=== PATIENT | male | born 1970 | race Caucasian/White ===

== ENCOUNTER 2019-10-01 09:00 | Outpatient (CLI) | payer MEDICARE, MEDICAID, SELFPAY ==
[2019-10-01 10:10] LABS: Blood Urea Nitrogen 117 mg/dL (9-20); Calcium 8.9 mg/dL (8.4-10.2); Carbon Dioxide 26 mmol/L (22-30); Chloride 93 mmol/L (98-107); Estimated Glomerular Filt Rate 9; Glucose 270 mg/dL (75-110); Potassium 3.8 mmol/L (3.4-5.0); Sodium 137 mmol/L (137-145)
== END 2019-10-01 09:01 | disposition home or self-care (01) ==
PROVIDERS: PCP Family Medicine; Visit Provider Family Medicine
DX: N18.4 Chronic kidney disease, stage 4 (severe) (principal)
CPT/HCPCS: 36415; 80048

== ENCOUNTER 2019-10-16 14:17 | Outpatient (CLI) | payer MEDICARE, MEDICAID, SELFPAY ==
[2019-10-16 15:51] LABS: Hepatitis B Surface Antigen Negative (Negative)
[2019-10-16 15:56] LABS: Hepatitis B Core IgM Result Negative (Negative)
[2019-10-16 16:17] LABS: Hepatitis B Surface Anti Res Positive
== END 2019-10-16 14:18 | disposition home or self-care (01) ==
PROVIDERS: PCP Family Medicine; Visit Provider Internal Medicine Nephrology
DX: N18.6 End stage renal disease (principal)
CPT/HCPCS: 36415; 86705; 86706; 87340

== ENCOUNTER 2019-10-30 08:08 | Outpatient (CLI) | payer MEDICARE, MEDICAID, SELFPAY ==
[2019-10-30 08:41] LABS: Blood Urea Nitrogen 65 mg/dL (9-20); Calcium 8.7 mg/dL (8.4-10.2); Carbon Dioxide 28 mmol/L (22-30); Chloride 101 mmol/L (98-107); Estimated Glomerular Filt Rate 14; Glucose 122 mg/dL (75-110); Potassium 3.8 mmol/L (3.4-5.0); Sodium 137 mmol/L (137-145)
[2019-11-02 12:15] LABS: C-Peptide <0.10 ng/mL (0.80-3.85)
[2019-11-05 01:37] LABS: Islet Cell Antibody Screen NEGATIVE (NEGATIVE)
[2019-11-06 06:49] LABS: Glutamic acid decarboxylase AA <5 IU/mL (<5)
== END 2019-10-30 08:09 | disposition home or self-care (01) ==
PROVIDERS: PCP Family Medicine; Visit Provider Physician Assistant
DX: E10.65 Type 1 diabetes mellitus with hyperglycemia (principal)
CPT/HCPCS: 36415; 80048; 84681; 86341

== ENCOUNTER 2019-12-26 09:49 | Inpatient (IN) | payer MEDICARE, MEDICAID, SELFPAY ==
[2019-12-26] VITALS (15 sets, daily range): BP systolic 134–208; BP diastolic 47–69; PULSE 53–70; RESP 14–21; TEMP 36.1–37; O2SAT 91–98; BMI 36.8
--- NOTE | ~2019-12-26 | XR_ITS ---
EXAMINATION: XR hip RT 2V w AP pelvis DATE: 12/27/2019 08:28 INDICATION: Right hip and groin pain TECHNIQUE: Anteroposterior view of the pelvis and anteroposterior and frog-leg lateral views of the r ight hip were obtained. COMPARISON: CT dated 06/15/2017 FINDINGS: Old healed fracture deformity at the right femoral diaphysis. No acute fracture. Normal alignment at the hips. Bilateral decreased femoral head/neck offset. Mild bilateral hip osteoarthritis. Heterotopi c ossification along the right gluteus medius and along the right iliopsoas tendon likely related to old trauma. IMPRESSION: 1. Mild bilateral hip osteoarthritis. 2. Old healed right femoral diaphyseal fracture and heterotopic ossification in some of the soft tiss ues about the right hip, likely sequela of old trauma. No acute osseous abnormality. Reviewed, dictated and finalized at location A. IMPRESSION: 1. Mild bilateral hip osteoarthritis. 2. Old healed right femoral diaphyseal fracture and heterotopic ossification in some of the soft tissues about the right hip, likely sequela of old trauma. No acute osseous abnormality.
--- NOTE | ~2019-12-26 | XR_ITS ---
EXAMINATION: XR chest 2V 12/26/2019 10:23 INDICATION: Chest pain PROCEDURE: 2 view chest COMPARISON: Comparison to multiple prior studies sequentially, with oldest reviewed study dated 11/09. FINDINGS: The lungs are clear. The cardiomediastinal silhouette is within normal limits. There are no pleural effusions. There is no pneumothorax suspected. Subsegmental atelectasis left lung base. IMPRESSION: 1: NO ACUTE CARDIOPULMONARY DISEASE. Reviewed, dictated and finalized at location A.
--- NOTE | 2019-12-26 09:56 | ECG_ITS ---
Measurements Intervals [place] Rate: 65 P: 77 VA: 204 QRS: -47 QRSD: 127 T: 153 QT: 495 QTc: 517 Interpretive Statements SINUS RHYTHM BORDERLINE AV CONDUCTION DELAY LEFT ANTERIOR FASCICULAR BLOCK LEFT VENTRICULAR HYPERTROPHY AND ST-T CHANGE BORDERLINE ST-T WAVE ABNORMALITY- LATERAL LEADS BASELINE WANDER- I, II, AVR, AVL, AVF, V1, V4-V6 ABNORMAL ECG Electronically Signed On 12-26-2019 10:16:24 CDT by Doc Dorantes D.O.
--- NOTE | 2019-12-26 10:00 | ED.CHESTPAIN ---
HPI - Chest Pain General Chief Complaint: Chest Pain Stated Complaint: CP, High Blood Sugar History of Present Illness HPI narrative: 49 yo male w/ h/o DM, ESRD on peritoneal dialysis, HTN BIBEMS for CP. He has had chest pain for the past 2 days. Sharp pain. Constant. Radiating to the back. No exacerbating or alleviating factors. Associated with nausea and 2 episodes of vomiting. Additionally his blood sugar was red as high . He says that it has been reading high since starting peritoneal dialysi, but they have not made any changes to his insulin dosage yet. No fever, weakness, SOB. Related Data Home Medications Medication Instructions Recorded Confirmed aspirin 81 mg PO DAILY 06/04/19 12/26/19 calcitriol 0.25 mcg PO QAM 06/04/19 12/26/19 clonidine HCl 0.1 mg PO QAM AND QPM 06/04/19 12/26/19 clopidogrel 75 mg PO DAILY 06/04/19 12/26/19 ergocalciferol (vitamin D2) 50,000 unit PO WEEKLY 06/04/19 12/26/19 [Vitamin D2] hydralazine 100 mg PO Q8H 06/04/19 12/26/19 nitroglycerin 0.4 mg SUBLINGUAL Q5-15M PRN 06/04/19 12/26/19 terazosin 2 mg PO HS 06/04/19 12/26/19 ezetimibe [Zetia] 10 mg PO DAILY 09/09/19 12/26/19 isosorbide mononitrate 30 mg PO DAILY 09/09/19 12/26/19 metoprolol tartrate 100 mg PO Q12H 09/09/19 12/26/19 ranolazine 500 mg tablet,extended 500 mg PO Q12H 09/24/19 12/26/19 release,12 hr glucagon HCl 1 mg solution for 1 mg SUB-Q Q20M PRN each 09/29/19 12/26/19 injection subcutaneous insulin pump #1 each 09/29/19 10/18/19 atorvastatin 80 mg PO HS 10/18/19 12/26/19 calcium acetate 667 mg PO QID 12/26/19 12/26/19 carvedilol 25 mg PO QAM AND QPM 12/26/19 12/26/19 cetirizine [All Day Allergy 10 mg PO DAILY 12/26/19 12/26/19 (cetirizine)] colchicine 0.3 mg PO QMWF 12/26/19 12/26/19 famotidine 40 mg PO HS 12/26/19 12/26/19 febuxostat 40 mg PO DAILY 12/26/19 12/26/19 hydrocodone-acetaminophen 1 tablet PO Q6H PRN 12/26/19 12/26/19 Allergies Allergy/AdvReac Type Severity Reaction Status Date / Time iohexol Allergy Severe Difficulty Verified 12/26/19 09:49 [From CONTRAST - CT, XRAY] Breathing ticagrelor Allergy Intermediate Rash Verified 12/26/19 09:49 Review of Systems Review of Systems: All systems reviewed & are unremarkable except as noted in HPI and below Constitutional: Constitutional: Denies chills and Denies fever(s) Cardiovascular: Cardiovascular: Reports chest pain Respiratory: Respiratory: Denies dyspnea Gastrointestinal: Gastrointestinal: Denies abdominal pain, Reports nausea and Reports vomiting PMFSH Past Medical History Medical History Anemia Anxiety Arthritis Bronchitis CHF (congestive heart failure) Diabetes Fracture rt leg History of CHF (congestive heart failure) History of chronic kidney disease Stage III History of coronary artery disease History of DVT (deep vein thrombosis) Behind right knee chronic History of gastroesophageal reflux (GERD) History of gout History of hypertension History of sleep apnea Has sleep apnea Hyperlipidemia Hypertension, essential Myocardial infarction Pneumonia Secondary hyperparathyroidism of renal origin Type 1 diabetes mellitus with stage 5 chronic kidney disease Surgical History Surgical History H/O arthroscopic knee surgery lt knee History of appendectomy History of cardiac catheterization 3 November 2018 [facility] History of carpal tunnel surgery Bilateral Family History Family History (Updated 12/26/19 @ 16:43 by Fab Snyder MD) Father , in his late 60s Family history of heart disease in male family member before age 55 Family history of Alzheimer's disease Family history of congestive heart failure Hypertension Mother Hypertension Family history of Alzheimer's disease Other Family history of diabetes mellitus in first degree relative Social History Social
[2019-12-26 10:04] LABS: Glucose Point of Care > 500 (65-105)
[2019-12-26 10:05] LABS: Glucose Point of Care > 500 (65-105)
[2019-12-26 10:25] LABS: Basophils Percent Auto 0.6 % (0.2-1.2); Eosinophils Percent Auto 0.2 % (0-4.4); Hematocrit 37.6 % (42.0-52.0); Hemoglobin 12.2 g/dL (14.0-18.0); Immature Granulocyte Absolute 0.01 K/mm3 (0.00-0.031); Immature Granulocyte Percent A 0.2 % (0-0.5); Lymphocytes Absolute Auto 0.72 K/mm3 (0.9-3.2); Lymphocytes Percent Auto 14.8 % (18.3-44.2); Mean Corpuscular HGB Conc 32.4 g/dl (32-36); Mean Corpuscular Hemoglobin 29.5 pg (26-34); Mean Corpuscular Volume 90.8 fl (80-100); Mean Platelet Volume 10.4 fl (7.4-10.4); Monocytes Absolute Auto 0.4 K/mm3 (0.1-0.6); Monocytes Percent Auto 7.4 % (2.6-8.5); Neutrophils Absolute Auto 3.7 K/mm3 (1.3-6.7); Neutrophils Percent Auto 76.8 % (45.5-73.1); Platelet Count Result 176 k/mm3 (150-375); Red Blood Count 4.14 M/mm3 (4.6-6.20); White Blood Count 4.9 K/mm3 (4.5-10.0)
[2019-12-26] MEDS: INSULIN HUMAN REGULAR (*BKC) 100 UNITS/ML 10 UNITS IV PUSH (10:25)
[2019-12-26 10:31] LABS: Add Urine Microscopic? YES; Appearance Urine Clear (Clear); Bilirubin Urine Negative (Negative); Blood Urine Negative (Negative); Color Urine Straw (Yellow); Glucose Urine UA 3+ mg/dL (Negative); Ketones Urine Trace mg/dL (Negative); Leukocyte Esterase Ur Negative LEU/UL (Negative); Nitrate Urine Negative (Negative); Protein Urine 2+ mg/dL (Negative); RBC Urine 0-2 /hpf (0-2); Specific Grav Ur 1.016 (1.001-1.035); Urobilinogen Urine Negative mg/dL (<2.0); WBC Urine 0-3 /hpf
[2019-12-26 10:35] LABS: Partial Thromboplastin Time 25.4 SECONDS (22.3-36.8); Prothrombin Time 12.9 Seconds (11.1-14.7)
[2019-12-26 10:45] LABS: Alanine Aminotransferase 76 U/L (4-50); Albumin Level 3.9 g/dL (3.5-5.1); Alkaline Phosphatase 162 U/L (38-126); Aspartate Amino Transferase 48 U/L (17-59); Bilirubin,Total 1.2 mg/dL (0.2-1.3); Blood Urea Nitrogen 78 mg/dL (9-20); Calcium 8.7 mg/dL (8.4-10.2); Carbon Dioxide 20 mmol/L (22-30); Chloride 82 mmol/L (98-107); Estimated CRCL calculation 18 ml/min; Estimated Glomerular Filt Rate 10; Glucose 1027 mg/dL (75-110); Magnesium 2.4 mg/dL (1.6-2.3); Phosphorus 4.9 mg/dL (2.5-4.5); Potassium 4.4 mmol/L (3.4-5.0); Sodium 122 mmol/L (137-145)
[2019-12-26 10:56] LABS: Troponin I 0.048 ng/mL (0.000-0.034)
[2019-12-26] MEDS: SODIUM CHLORIDE 0.9% IV 1,000 ML 999 ML IV CONT ×2 (11:00→12:10)
[2019-12-26] MEDS: INSULIN HUMAN REGULAR (*BKC) 100 UNITS in SODIUM CHLORIDE 0.9% IV 99 ML 19.3 UNITS IV CONT (11:41)
[2019-12-26 11:52] LABS: Beta-Hydroxybutyrate/Acetoacetate 4.13 mmol/L (0.02-0.27)
[2019-12-26 12:52] LABS: Glucose Point of Care > 500 (65-105)
[2019-12-26 12:52] LABS: Glucose Point of Care > 500 (65-105)
--- NOTE | 2019-12-26 13:06 | ADMGEN ---
This patient, Juvenal Daigle Jr., was admitted to Intensive Care Unit-10. Patient/family oriented to hospital policies and general routines including ID bracelet, bed and alarms, visiting hours, pain management, procedures, bathroom and other care routines, personal items, smoking policy, room service/diet, and visiting hours. Valuables list has been completed. Information on how to activate the Rapid Response Team has been discussed. Patient/Family are encouraged to report perceived risks to care and to ask questions if they do not understand what they are told or what they should do.
--- NOTE | 2019-12-26 13:13 | WPDCNINT ---
Assessment and Plan Assessment and plan (1) DKA (diabetic ketoacidosis): Qualifiers: Diabetes mellitus complication detail: without coma Diabetes mellitus type: type 1 Qualified Code(s): E10.10 - Type 1 diabetes mellitus with ketoacidosis without coma Code(s): E11.10 - Type 2 diabetes mellitus with ketoacidosis without coma Status: Acute Assessment and Plan: Pt presented with chest pain, Nausea and Vomiting, found to have a blood sugar of 1027, with an elevated anion gap. given 2 L IV fluid Bolus and started on Insulin infusion. - continue IV insulin per DKA protocol - check HbA1C - Will transition pt to long acting insulin and SSI with accuchecks once anion gap closes. (2) Chest pain: Qualifiers: Chest pain type: unspecified Qualified Code(s): R07.9 - Chest pain, unspecified Code(s): R07.9 - Chest pain, unspecified Status: Acute Assessment and Plan: Pt presented with chest pain, troponin minimally elevated - trend troponin and EKGs - COntinue ASA, beta blockers, Ranexa, Plavix, Imdur - ECHO 09/10/2019: Mild LVH, mild LV enlargement; overall LV systolic function is normal with ejection fraction about 55%; distal anterior and anterolateral wall and apex is hypokinetic. Mild left atrial enlargement. Trace MR. Mild aortic valve calcification with mild stenosis, calculated LARA 1.9 cm2. Trace TR, severe pulmonary hypertension, RVSP 70 mmHg (3) End-stage renal disease (ESRD): Code(s): N18.6 - End stage renal disease Status: Acute Assessment and Plan: Pt on peritoneal dialysis, sees Dr. Reyes ( Traffic Assistant) - Will consult - PD per nephrology - Hyponatremia - likely due to elevated sugars, Pseudohyponatremia. will continue to monitor (4) HTN (hypertension): Code(s): I10 - Essential (primary) hypertension Status: Acute Assessment and Plan: continue home meds (5) Type 1 diabetes mellitus with hyperglycemia, with long-term current use of insulin: Code(s): E10.65 - Type 1 diabetes mellitus with hyperglycemia Status: Acute Assessment and Plan: DM type 1, pt on insulin pump and has a [employer] sugar monitor system - check HbA1C - Nutritonist and ems educator will be consulted (6) DVT prophylaxis: Code(s): Z29.9 - Encounter for prophylactic measures, unspecified Status: Acute Assessment and Plan: continue heparin SQ (7) Anemia: Code(s): D64.9 - Anemia, unspecified Status: Acute Assessment and Plan: Likely related to anemia of chronic disease. HB stable - continue to monitor (8) Hyperlipidemia: Code(s): E78.5 - Hyperlipidemia, unspecified Status: Chronic Assessment and Plan: continue statin Additional Plan Discussed with pt and updated him with his condition and plan of care. I answered all his questions. D/w Dr. Snyder Code Status: Full Code Critical Care Time Spent: 44 minutes Due to a high probability of clinically significant, life threatening deterioration, the patient required my highest level of preparedness to intervene emergently and I personally spent this critical care time directly and personally managing the patient. This critical care time included obtaining a history; examining the patient; pulse oximetry; ordering and review of studies; arranging urgent treatment with development of a management plan; evaluation of patient's response to treatment; frequent reassessment; and discussions with other providers. It was exclusive of separately billable procedures and treating other patients and teaching time. Please see Assessment and Plan section and the rest of the note for further information on patient assessment and treatment Face Hardener Consult Note Consult date: 12/26/19 Time Seen: 13:12 Reason for consult: Chest pain, DKA HPI: Juvenal Daigle Jr. is a 49 year old male with PMH of DM type 1, ESRD on peritoneal dialy
--- NOTE | 2019-12-26 15:11 | ADMGEN ---
This patient, Juvenal Daigle Jr., was admitted to Intensive Care Unit-10 @ 1310. Patient oriented to hospital policies and general routines including ID bracelet, bed and alarms, visiting hours, pain management, procedures, bathroom and other care routines, personal items, smoking policy, room service/diet, and visiting hours. Valuables list has been completed. Information on how to activate the Rapid Response Team has been discussed. Patient encouraged to report perceived risks to care and to ask questions if he does not understand what he is told or what to do.
--- NOTE | 2019-12-26 15:14 | PC.NURSE ---
Admission assessment completed upon pt arrival to ICU- Computer system down at that time until 1514; Pt admitted to ICU from ER with insulin drip infusing at 19.3cc/hr- Blood Sugar >600; -
[2019-12-26 15:20] LABS: Glucose Point of Care > 500 (65-105)
[2019-12-26 15:20] LABS: Glucose Point of Care > 500 (65-105)
[2019-12-26 15:20] LABS: Glucose Point of Care > 500 (65-105)
[2019-12-26 16:25] LABS: Glucose Point of Care > 500 (65-105)
--- NOTE | 2019-12-26 16:27 | PM.IMHP ---
H&P: HPI History of Present Illness Chief complaint: DKA Narrative: Date of visit 12/25 1300. Juvenal Daigle Jr. is a 49 year old hypertensive white male with chronic renal failure on peritoneal dialysis and type 2 diabetes mellitus with known coronary disease. Patient states that the last 2 days he has awakened life skills specialist with sharp anterior chest pain nonradiating and no shortness of breath but did have emesis this a.m.. Related in the ER the pain radiated to back. Patient has had known history of atypical chest discomfort and had a cardiac catheterization ended July at [facility] revealing that stents were patent. In November of 2018 apparently had 3 stents placed a [facility]. He also relates that he has been on peritoneal dialysis since October of this year and sugars have been running much higher. He was to have his insulin pump adjusted for the increase in sugars but has never had it done with problems of COVID. He has had no fever no chills minimal cough if any. Has sheltered in for the most part other than trips to the grocery store. States that he did have significant elevated blood sugar probable DKA some 11 years ago Review of Systems Review of Systems: Narrative: Constitutional prior to present illness appetite good weight steady and as above no fever chills Eye no double vision [place] Mouth no pharyngitis laryngitis Pulmonary no shortness breath wheezing minimal dry cough at times CV as per present illness and states that since he started peritoneal dialysis edema has subsided continues to peritoneal dialysis dysuria GI no melena hematochezia diarrhea Muscle skeletal complains of pain intermittently in right hip with movement or walking and growing vein Integument no skin breakdown rashes Neuropsych no seizures no syncope PMFSH Past Medical History Medical History Anemia Anxiety Arthritis Bronchitis CHF (congestive heart failure) Diabetes Fracture rt leg History of CHF (congestive heart failure) History of chronic kidney disease Stage III History of coronary artery disease History of DVT (deep vein thrombosis) Behind right knee chronic History of gastroesophageal reflux (GERD) History of gout History of hypertension History of sleep apnea Has sleep apnea Hyperlipidemia Hypertension, essential Myocardial infarction Pneumonia Secondary hyperparathyroidism of renal origin Type 1 diabetes mellitus with stage 5 chronic kidney disease Surgical History Surgical History H/O arthroscopic knee surgery lt knee History of appendectomy History of cardiac catheterization November 2018 [facility] History of carpal tunnel surgery Bilateral Family History Family History Father , in his late 60s Family history of heart disease in male family member before age 55 Family history of Alzheimer's disease Family history of congestive heart failure Hypertension Mother Hypertension Family history of Alzheimer's disease Other Family history of diabetes mellitus in first degree relative Social History Social History Social History: The patient is single. Three children. Has disabled. Never smoked and does not drink alcohol use any drugs. He does not have a durable power fine patcher but requested to be a full code. Smoking status: Never smoker Second hand tobacco smoke exposure: Yes Alcohol intake: former Substance use: never Substance use type: does not use Gender identity (if verbalized by the patient): Male Spiritual care concerns: No Agree to blood products: Yes Meds Home Medications and Allergies Home Medications Medication Instructions Recorded Confirmed Type aspirin 81 mg PO DAILY
[2019-12-26 17:32] LABS: Glucose Point of Care 479 (65-105)
[2019-12-26] MEDS: INSULIN HUMAN REGULAR (*BKC) 100 UNITS in SODIUM CHLORIDE 0.9% IV 99 ML 8.4 UNITS IV CONT (17:35)
[2019-12-26 17:37] LABS: Albumin Level 3.8 g/dL (3.5-5.1); Blood Urea Nitrogen 81 mg/dL (9-20); Calcium 8.5 mg/dL (8.4-10.2); Carbon Dioxide 26 mmol/L (22-30); Chloride 92 mmol/L (98-107); Estimated CRCL calculation 18 ml/min; Estimated Glomerular Filt Rate 10; Glucose 530 mg/dL (75-110); Phosphorus 3.4 mg/dL (2.5-4.5); Potassium 3.3 mmol/L (3.4-5.0); Sodium 130 mmol/L (137-145); Troponin I 0.265 ng/mL (0.000-0.034)
[2019-12-26] MEDS: SODIUM CHLORIDE 0.9% IV 1,000 ML 100 ML IV CONT (17:41)
[2019-12-26] MEDS: KCL 20 MEQ/SW 100 ML 100 ML 50 MEQ IVPB (18:41)
--- NOTE | 2019-12-26 18:41 | PM.CNNEP ---
Assessment and Plan Assessment and plan (1) DKA (diabetic ketoacidosis): Qualifiers: Diabetes mellitus complication detail: without coma Diabetes mellitus type: type 1 Qualified Code(s): E10.10 - Type 1 diabetes mellitus with ketoacidosis without coma Code(s): E11.10 - Type 2 diabetes mellitus with ketoacidosis without coma Status: Acute (2) End-stage renal disease (ESRD): Code(s): N18.6 - End stage renal disease Status: Acute Assessment and Plan: ESRD patient recently initiated on peritoneal dialysis. Unusual to see this degree of hyperglycemia in the situation of using Dianeal, except that something else precipitates the hyperglycemia and the DKA. Need to verify that the insulin pump is delivering, there is no infection His belly is benign and clinically nothing in findings to indicate that he has peritonitis Will use lower concentration Dianeal today, hew may absorb some fluid, Patient is on IVF, caution due to h/o CHF. His hypokalemia is being corrected, K low due as well to peritoneal loss Will follow for ESRD and associated renal needs (3) Chest pain: Qualifiers: Chest pain type: unspecified Qualified Code(s): R07.9 - Chest pain, unspecified Code(s): R07.9 - Chest pain, unspecified Status: Acute (4) Hyponatremia: Code(s): E87.1 - Hypo-osmolality and hyponatremia Status: Acute (5) Anemia: Code(s): D64.9 - Anemia, unspecified Status: Acute (6) HTN (hypertension): Code(s): I10 - Essential (primary) hypertension Status: Acute (7) Type 1 diabetes mellitus with stage 5 chronic kidney disease: Code(s): E10.22 - Type 1 diabetes mellitus with diabetic chronic kidney disease; N18.5 - Chronic kidney disease, stage 5 Status: Acute (8) Secondary hyperparathyroidism of renal origin: Code(s): N25.81 - Secondary hyperparathyroidism of renal origin Status: Acute (9) Coronary artery disease: Qualifiers: Coronary Disease-Associated Artery/Lesion type: [place] artery [place] vs. transplanted heart: [place] heart Associated angina: without angina Qualified Code(s): I25.10 - Atherosclerotic heart disease of [place] coronary artery without angina pectoris Code(s): I25.10 - Atherosclerotic heart disease of [place] coronary artery without angina pectoris Status: Acute (10) History of sleep apnea: Code(s): Z86.69 - Personal history of other diseases of the nervous system and sense organs Status: Chronic (11) Hyperlipidemia: Code(s): E78.5 - Hyperlipidemia, unspecified Status: Chronic (12) Anemia of chronic renal failure, stage 4 (severe): Code(s): N18.4 - Chronic kidney disease, stage 4 (severe); D63.1 - Anemia in chronic kidney disease Status: Acute History of Present Illness Reason for Consult Consult date: 12/26/19 Reason for consult: end stage renal disease Chief Complaint Chief complaint: DKA Review of Systems Review of Systems: Narrative: Admitted with chest pain, fatigue, dry mouth, feeling unwell Noted high sugar and DKA On an insulin pump under care of ethylene compressor operator, being watched after initiation of peritoneal dialysis in October with a view to changing insulin pump dosing depending on the anticipated higher sugars with the Dianeal peritoneal solution. No fever, abscesses, or infection source from anywhere that is d described by the patient, only symptom felt cold No COVID-19 exposure Making urine, does not feel he has lost weight No swelling in leg, no SOB No nausea or emesis All systems reviewed & are unremarkable except as noted in HPI and below PMFSH Past Medical History Medical History Anemia Anxiety Arthritis Bronchitis CHF (congestive heart failure) Diabetes Fracture rt leg History of CHF (congestive heart failure) History of chronic kidney disease Stage III Hi
[2019-12-26] MEDS: hydrALAZINE HCL 50 MG TABLET 100 MG PO ×2 (18:42→21:08)
[2019-12-26 19:36] LABS: Glucose Point of Care 424 (65-105)
[2019-12-26 19:36] LABS: Glucose Point of Care 360 (65-105)
[2019-12-26 20:24] LABS: Blood Urea Nitrogen 80 mg/dL (9-20); Calcium 8.5 mg/dL (8.4-10.2); Carbon Dioxide 28 mmol/L (22-30); Chloride 95 mmol/L (98-107); Estimated CRCL calculation 18 ml/min; Estimated Glomerular Filt Rate 11; Glucose 306 mg/dL (75-110); Potassium 3.3 mmol/L (3.4-5.0); Sodium 132 mmol/L (137-145)
[2019-12-26 20:30] LABS: Glucose Point of Care 261 (65-105)
[2019-12-26 20:49] LABS: Troponin I 0.488 ng/mL (0.000-0.034)
[2019-12-26] MEDS: carvediloL 25 MG TABLET PO (21:04)
[2019-12-26] MEDS: CLONIDINE HCL 0.1 MG TABLET PO (21:04)
[2019-12-26] MEDS: CALCIUM ACETATE 667 MG TABLET PO (21:05)
[2019-12-26] MEDS: ATORVASTATIN 40 MG TABLET 80 MG PO (21:05)
[2019-12-26] MEDS: FAMOTIDINE 20 MG TABLET 40 MG PO (21:06)
[2019-12-26] MEDS: TERAZOSIN HCL 1 MG CAPSULE 2 MG PO (21:06)
[2019-12-26] MEDS: HEPARIN SODIUM 5,000 UNITS/ML VIAL 5000 UNITS SUB-Q (21:07)
[2019-12-26] MEDS: METOPROLOL TARTRATE 50 MG TAB 100 MG PO (21:07)
[2019-12-26] MEDS: RANOLAZINE 500 MG TAB.ER.12H PO (21:08)
[2019-12-26 21:24] LABS: Glucose Point of Care 211 (65-105)
[2019-12-26] MEDS: KCL 20 MEQ/D5/0.45% SOD CHL 1,000 ML 150 ML IV CONT (22:58)
[2019-12-26 23:01] LABS: Glucose Point of Care 113 (65-105)
[2019-12-27] VITALS (16 sets, daily range): BP systolic 126–173; BP diastolic 46–71; PULSE 46–60; RESP 10–21; TEMP 36–36.7; O2SAT 96–99
[2019-12-27 00:01] LABS: Glucose Point of Care 104 (65-105)
[2019-12-27] MEDS: INSULIN GLARGINE (*BKC) 100 UNITS/ML 30 UNITS SUB-Q (00:30)
[2019-12-27 00:39] LABS: Blood Urea Nitrogen 77 mg/dL (9-20); Calcium 8.9 mg/dL (8.4-10.2); Carbon Dioxide 28 mmol/L (22-30); Chloride 99 mmol/L (98-107); Estimated CRCL calculation 19 ml/min; Estimated Glomerular Filt Rate 11; Glucose 124 mg/dL (75-110); Potassium 3.2 mmol/L (3.4-5.0); Sodium 135 mmol/L (137-145)
[2019-12-27 00:45] LABS: Hepatitis B Surface Antigen Negative (Negative)
[2019-12-27 00:58] LABS: Glucose Point of Care 121 (65-105)
[2019-12-27 01:03] LABS: Hepatitis B Surface Anti Res Positive
--- NOTE | 2019-12-27 02:40 | PC.NURSE ---
12/26/190 spoke with dialysis nurse here to connect patient to cycler. States she is unsure how to get PD sample and this is the first time she is hooking a patient up by herself. States the nurse who is going to disconnect patient will get sample.
[2019-12-27] MEDS: HEPARIN SODIUM 5,000 UNITS/ML VIAL 5000 UNITS SUB-Q ×3 (05:15→22:55)
[2019-12-27] MEDS: hydrALAZINE HCL 50 MG TABLET 100 MG PO ×3 (05:16→22:56)
[2019-12-27 05:21] LABS: Basophils Percent Auto 0.4 % (0.2-1.2); Eosinophils Absolute Auto 0.2 K/mm3 (0-0.3); Eosinophils Percent Auto 3.6 % (0-4.4); Hematocrit 33.9 % (42.0-52.0); Hemoglobin 11.8 g/dL (14.0-18.0); Immature Granulocyte Absolute 0.01 K/mm3 (0.00-0.031); Immature Granulocyte Percent A 0.2 % (0-0.5); Lymphocytes Absolute Auto 2.18 K/mm3 (0.9-3.2); Lymphocytes Percent Auto 41.8 % (18.3-44.2); Mean Corpuscular HGB Conc 34.8 g/dl (32-36); Mean Corpuscular Hemoglobin 29.6 pg (26-34); Mean Corpuscular Volume 85.2 fl (80-100); Mean Platelet Volume 9.9 fl (7.4-10.4); Monocytes Absolute Auto 0.7 K/mm3 (0.1-0.6); Monocytes Percent Auto 13.6 % (2.6-8.5); Neutrophils Absolute Auto 2.1 K/mm3 (1.3-6.7); Neutrophils Percent Auto 40.4 % (45.5-73.1); Platelet Count Result 181 k/mm3 (150-375); Red Blood Count 3.98 M/mm3 (4.6-6.20); Red Cell Distribution Width 12.8 % (11.5-14.5); White Blood Count 5.2 K/mm3 (4.5-10.0)
[2019-12-27 05:29] LABS: Alanine Aminotransferase 66 U/L (4-50); Albumin Level 3.4 g/dL (3.5-5.1); Alkaline Phosphatase 123 U/L (38-126); Aspartate Amino Transferase 39 U/L (17-59); Bilirubin,Total 0.6 mg/dL (0.2-1.3); Blood Urea Nitrogen 70 mg/dL (9-20); Calcium 8.1 mg/dL (8.4-10.2); Carbon Dioxide 24 mmol/L (22-30); Chloride 97 mmol/L (98-107); Estimated CRCL calculation 21 ml/min; Estimated Glomerular Filt Rate 12; Glucose 321 mg/dL (75-110); Magnesium 2.3 mg/dL (1.6-2.3); Phosphorus 4.8 mg/dL (2.5-4.5); Potassium 3.7 mmol/L (3.4-5.0); Sodium 133 mmol/L (137-145)
[2019-12-27 05:54] LABS: Troponin I 0.602 ng/mL (0.000-0.034)
[2019-12-27 05:57] LABS: Glucose Point of Care 226 (65-105)
[2019-12-27 08:22] LABS: Glucose Point of Care 400 (65-105)
[2019-12-27 08:37] LABS: Troponin I 0.542 ng/mL (0.000-0.034)
[2019-12-27] MEDS: INSULIN GLARGINE (*BKC) 100 UNITS/ML 10 UNITS SUB-Q (08:38)
[2019-12-27] MEDS: INSULIN ASPART (*BKC) 100 UNITS/ML SUB-Q ×3 (08:38→16:13)
[2019-12-27] MEDS: calcitrioL 0.25 MCG CAPSULE PO (08:45)
[2019-12-27] MEDS: COLCHICINE 0.6 MG TABLET 0.3 MG PO (08:46)
[2019-12-27] MEDS: ASPIRIN 81 MG CHEWABLE TABLET PO (08:46)
[2019-12-27] MEDS: CLONIDINE HCL 0.1 MG TABLET PO ×2 (08:46→20:52)
[2019-12-27] MEDS: EZETIMIBE 10 MG TABLET PO (08:46)
[2019-12-27] MEDS: CALCIUM ACETATE 667 MG TABLET PO ×4 (08:46→20:51)
[2019-12-27] MEDS: carvediloL 25 MG TABLET PO ×2 (08:46→20:51)
[2019-12-27] MEDS: CLOPIDOGREL BISULFATE 75 MG TABLET PO (08:47)
[2019-12-27] MEDS: METOPROLOL TARTRATE 50 MG TAB 100 MG PO ×2 (08:47→20:52)
[2019-12-27] MEDS: RANOLAZINE 500 MG TAB.ER.12H PO ×2 (08:47→20:53)
[2019-12-27] MEDS: ISOSORBIDE MONONITRATE 30 MG TAB.ER.24H PO (08:47)
[2019-12-27] MEDS: LORATADINE 10 MG TABLET PO (08:47)
[2019-12-27] MEDS: FEBUXOSTAT 40 MG TABLET PO (08:47)
--- NOTE | 2019-12-27 09:47 | WPDINTPN ---
Progress Note: A&P Assessment and Plan (1) DKA (diabetic ketoacidosis): Qualifiers: Diabetes mellitus complication detail: without coma Diabetes mellitus type: type 1 Qualified Code(s): E10.10 - Type 1 diabetes mellitus with ketoacidosis without coma Code(s): E11.10 - Type 2 diabetes mellitus with ketoacidosis without coma Status: Acute Assessment and Plan: Pt presented with chest pain, Nausea and Vomiting, found to have a blood sugar of 1027, with an elevated anion gap. given 2 L IV fluid Bolus and started on Insulin infusion. - patient was transition to long-acting insulin Lantus and sliding scale insulin last night, diabetic diet was started. - check HbA1C - Will have halfway house counselor and manager training evaluate the patient (2) Chest pain: Qualifiers: Chest pain type: unspecified Qualified Code(s): R07.9 - Chest pain, unspecified Code(s): R07.9 - Chest pain, unspecified Status: Acute Assessment and Plan: RESOLVED; PATIENT PRESENTED WITH ATYPICAL CHEST PAIN, troponin minimally elevated - COntinue ASA, beta blockers, Ranexa, Plavix, Imdur - ECHO 09/10/2019: Mild LVH, mild LV enlargement; overall LV systolic function is normal with ejection fraction about 55%; distal anterior and anterolateral wall and apex is hypokinetic. Mild left atrial enlargement. Trace MR. Mild aortic valve calcification with mild stenosis, calculated LARA 1.9 cm2. Trace TR, severe pulmonary hypertension, RVSP 70 mmHg (3) End-stage renal disease (ESRD): Code(s): N18.6 - End stage renal disease Status: Acute Assessment and Plan: Pt on peritoneal dialysis, sees Dr. Reyes ( Certified Fire Investigator) - Will consult - PD per nephrology - Hyponatremia - likely due to elevated sugars, Pseudohyponatremia. will continue to monitor - resolved (4) HTN (hypertension): Code(s): I10 - Essential (primary) hypertension Status: Acute Assessment and Plan: continue home meds (5) Type 1 diabetes mellitus with hyperglycemia, with long-term current use of insulin: Code(s): E10.65 - Type 1 diabetes mellitus with hyperglycemia Status: Acute Assessment and Plan: DM type 1, pt on insulin pump and has a [employer] sugar monitor system - check HbA1C - Nutritonist and halfway house counselor will be consulted (6) DVT prophylaxis: Code(s): Z29.9 - Encounter for prophylactic measures, unspecified Status: Acute Assessment and Plan: continue heparin SQ (7) Anemia: Code(s): D64.9 - Anemia, unspecified Status: Acute Assessment and Plan: Likely related to anemia of chronic disease. HB stable - continue to monitor (8) Hyperlipidemia: Code(s): E78.5 - Hyperlipidemia, unspecified Status: Chronic Assessment and Plan: continue statin Additional Plan Discussed with pt and updated him with his condition and plan of care. I answered all his questions. D/w Dr. Snyder Code Status: Full Code Critical Care Time Spent: 32 minutes Due to a high probability of clinically significant, life threatening deterioration, the patient required my highest level of preparedness to intervene emergently and I personally spent this critical care time directly and personally managing the patient. This critical care time included obtaining a history; examining the patient; pulse oximetry; ordering and review of studies; arranging urgent treatment with development of a management plan; evaluation of patient's response to treatment; frequent reassessment; and discussions with other providers. It was exclusive of separately billable procedures and treating other patients and teaching time. Please see Assessment and Plan section and the rest of the note for further information on patient assessment and treatment Subjective Date/time seen: 12/27/19 09:47 Reason for consult: Chest pain, DKA 12/27/2019: Patient seen and examined th
[2019-12-27] MEDS: PANTOPRAZOLE 40 MG TABLET PO ×2 (09:53→20:53)
[2019-12-27 11:56] LABS: Blood Urea Nitrogen 68 mg/dL (9-20); Calcium 8.7 mg/dL (8.4-10.2); Carbon Dioxide 26 mmol/L (22-30); Chloride 95 mmol/L (98-107); Estimated CRCL calculation 21 ml/min; Estimated Glomerular Filt Rate 12; Glucose 384 mg/dL (75-110); Potassium 3.3 mmol/L (3.4-5.0); Sodium 130 mmol/L (137-145)
[2019-12-27 12:25] LABS: Hemoglobin A1C 8.6 % (<5.7)
[2019-12-27 12:42] LABS: Glucose Point of Care 373 (65-105)
--- NOTE | 2019-12-27 12:54 | PM.IMPN ---
Progress Note: A&P Assessment and Plan (1) DKA (diabetic ketoacidoses): Code(s): E11.10 - Type 2 diabetes mellitus with ketoacidosis without coma Status: Acute Assessment and Plan: CO2 is now 24 and gap is 9.. insulin drip off last pm. lantus 30 u last pm and 10 this am . have educator see about his pump and probable d/c 12/27 novolog 8 U ac with slide and lantus 40 hs (2) Chest pain: Qualifiers: Chest pain type: precordial pain Qualified Code(s): R07.2 - Precordial pain Code(s): R07.9 - Chest pain, unspecified Status: Acute Assessment and Plan: Atypical chest pain with borderline troponin. Troponin is similar to levels it was in August of this year which is probably secondary to chronic renal failure. Echo at that time showed normal ejection fraction with mild and pulmonary hypertension. Last cath 08/08 revealed patent stents, continue his aspirin Plavix beta-umair and nitrate (3) HTN (hypertension): Code(s): I10 - Essential (primary) hypertension Status: Acute Assessment and Plan: Pressure is better today after his meds. Including his clonidine, hydralazine, metoprolol, (4) Chronic kidney disease (CKD): Qualifiers: Chronic kidney disease stage: stage 5, not on chronic dialysis Qualified Code(s): N18.5 - Chronic kidney disease, stage 5 Code(s): N18.9 - Chronic kidney disease, unspecified Status: Acute Assessment and Plan: Dr Reyes is directing his peritoneal dialysis. (5) Anemia: Code(s): D64.9 - Anemia, unspecified Status: Acute Assessment and Plan: Anemia of chronic disease. Hemoglobin is actually higher than it had been on previous occasions (6) Hyponatremia: Code(s): E87.1 - Hypo-osmolality and hyponatremia Status: Acute Assessment and Plan: Suspect all secondary to pseudo hyponatremia with elevated sugar but also some component of dehydration. Received 2 L of saline in ER and with sugar correction up to 133 this am (7) DVT prophylaxis: Code(s): Z29.9 - Encounter for prophylactic measures, unspecified Status: Acute Assessment and Plan: SC heparin Apparently there has been a distant past history of peripheral DVT Subjective Date/time seen: 12/27/19 12:54 Interval history: Date visit 12/26. 49 old with end-stage disease peritoneal dialysis admitted with diabetic ketoacidosis suggest pain. This a.m. after treatment with IV insulin feels much better and tolerating diet. Low bit heartburn and reflux but no chest pain no nausea. Exam Narrative: Exam Narrative: Blood pressure 130/62 pulse 52 saturating 98% on room air afebrile Pupils equal reactive to light sclera anicteric Mouth mucosa normal , No longer dry Lungs clear CV regular rate rhythm systolic ejection murmur lower left sternal border radiating to the carotids bilaterally Abdomen is soft bowel sounds present dialysis catheter in place wound clean and dry Extremities without edema distal pulses 1+ Integument no skin breakdown rashes Psych appropriate pleasant cooperative Neuro cranial nerves 2-12 are intact no focal neurological deficits Objective Data Vital Signs Vital Signs: Vital Signs - 24 hr 12/26/19 13:10 12/26/19 13:30 12/26/19 14:00 Temperature 36.6 C Pulse Rate 70 70 60 Respiratory Rate 20 16 Blood Pressure 164/63 H 145/58 H Pulse Oximetry 96 92 12/26/19 16:00 12/26/19 18:00 12/26/19 18:30 Temperature 36.1 C L Pulse Rate 60 56 L 56 L Respiratory Rate 16 17 17 Blood Pressure 151/53 H 176/68 H 208/69 H Pulse Oximetry 96 91 12/26/19 19:00 12/26/19 19:30 12/26/19 20:00 Temperature 37.0 C Pulse Rate 56 L 55 L 56 L Respiratory Rate 16 21 H 16 Blood Pressure 172/53 H 172/53 H Pulse Oximetry 97 97 12/26/19 21:04 12/26/19 21:07 12/26/19 22:00 Temperature Pulse Rate 56 L 56 L 53 L Respiratory Rate 14 Blood Pressure 134/54 L Pulse Oximetry
[2019-12-27] MEDS: INSULIN ASPART (*BKC) 100 UNITS/ML 10 UNITS SUB-Q (12:56)
--- NOTE | 2019-12-27 14:30 | PC.NURSE ---
Transfer received from IMU. Belongings transferred to the [facility].
--- NOTE | 2019-12-27 14:34 | PC.NURSE ---
This patient, Juvenal Daigle Jr., was transferred to [[address] [place] [address] ] on 12/27/19 at 1434. Personal belongings sent with patient. Belongings list checked and signed with receiving [ ]. Report given to [hema grider ]. Appropriate documentation sent with patient.
--- NOTE | 2019-12-27 15:29 | PM.PNNEP ---
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 No evidence clinically of a peritoneal infection Replace K, expect K loss in peritoneal effluent Maintain rest renal Rx OK for discharge in am Subjective Date/time seen: 12/27/19 15:29 ESRD follow up Review of Systems Review of Systems: Narrative: Feeling better than he did yesterday Still high sugars though No swelling Did OK with peritoneal treatment from last night Exam Const: General: no acute distress Eyes: General: appearance normal, both eyes and all related structures Neck: Neck: no JVD Resp: Effort & Inspection: normal respiratory effort Auscultation: clear to auscultation bilaterally Cardio: Rate: regular rate Rhythm: regular rhythm Heart sounds: no gallops GI: GI Palp: Yes Soft to palpation and No Tenderness to palpation present (GI) Skin: General skin exam: normal color and no erythema Extrem: General: normal to inspection and no edema Psych: Mental Status: mental status grossly normal Affect: normal affect Objective Data Vital Signs Vital Signs: Vital Signs - 24 hr 12/26/19 16:00 12/26/19 18:00 12/26/19 18:30 Temperature 36.1 C L Pulse Rate 60 56 L 56 L Respiratory Rate 16 17 17 Blood Pressure 151/53 H 176/68 H 208/69 H Pulse Oximetry 96 91 12/26/19 19:00 12/26/19 19:30 12/26/19 20:00 Temperature 37.0 C Pulse Rate 56 L 55 L 56 L Respiratory Rate 16 21 H 16 Blood Pressure 172/53 H 172/53 H Pulse Oximetry 97 97 12/26/19 21:04 12/26/19 21:07 12/26/19 22:00 Temperature Pulse Rate 56 L 56 L 53 L Respiratory Rate 14 Blood Pressure 134/54 L Pulse Oximetry 96 12/27/19 00:00 12/27/19 02:00 12/27/19 04:00 Temperature 36.5 C Pulse Rate 46 L 49 L 49 L Respiratory Rate 10 L 11 L Blood Pressure 126/60 134/59 L Pulse Oximetry 99 98 12/27/19 04:44 12/27/19 05:24 12/27/19 06:00 Temperature 36.5 C Pulse Rate 50 L 55 L 54 L Respiratory Rate 16 21 H 16 Blood Pressure 158/65 H 149/61 H Pulse Oximetry 97 96 99 12/27/19 08:00 12/27/19 08:46 12/27/19 08:47 Temperature 36.3 C L Pulse Rate 57 L 60 60 Respiratory Rate 14 Blood Pressure 140/53 L Pulse Oximetry 96 12/27/19 11:59 12/27/19 12:15 12/27/19 14:36 Temperature 36.4 C Pulse Rate 53 L 52 L 52 L Respiratory Rate 14 18 16 Blood Pressure 131/62 131/62 133/69 Pulse Oximetry 96 98 98 Intake/Output Intake/Output: Intake & Output 12/24/19 12/25/19 12/26/19 12/27/19 23:59 23:59 23:59 23:59 Intake Total 2100 2615 Output Total 1100 725 Balance 1000 1890 Meds/Results Medications: Active Medications Generic Name Dose Route Start Last Admin Trade Name Freq PRN Reason Stop Dose Admin Hydrocodone Bitart/Acetaminophen 1 tab 12/26/19 16:18 [place] 5-325 Mg PO Q6H PRN Pain Aspirin 81 mg 12/27/19 09:00 12/27/19 08:46 Aspirin Chewable PO 81 mg DAILY ASHLEY Administration Atorvastatin Calcium 80 mg 12/26/19 21:00 12/26/19 21:05 Lipitor PO 80 mg HS ASHLEY Administration Calcitriol 0.25 mcg 12/27/19 09:00 12/27/19 08:45 Rocaltrol PO 0.25 mcg QAM ASHLEY Administration Calcium Acetate 667 mg 12/26/19 17:00 12/27/19 12:56 Phoslo PO 01/25/20 17:01 667 mg QID ASHLEY Administration Carvedilol 25 mg 12/26/19 21:00 12/27/19 08:46 Coreg PO 25 mg Q12HR ASHLEY Administration Clonidine HCl 0.1 mg 12/26/19 21:00 12/27/19 08:46 Catapres PO 0.1 mg Q12HR ASHLEY Administration Clopidogrel Bisulfate 75 mg 12/27/19 09:00 12/27/19 08:47 Plavix PO 75 mg DAILY ASHLEY Administration Col
[2019-12-27] MEDS: INSULIN ASPART (*BKC) 100 UNITS/ML 8 UNITS SUB-Q (16:13)
[2019-12-27] MEDS: POTASSIUM CHLORIDE 20 MEQ PACKET (FOR LIQUID) PO (16:16)
[2019-12-27 16:27] LABS: Appearance Peritoneal Fluid Clear (Clear); Color Peritoneal Fluid Colorless (Colorless); Nucleated Cells Peritoneal Flu 80 /uL (0-500); RBC Peritoneal Fluid 149 /uL (0-100000); Source Peritoneal Fluid Peritoneal Fluid
[2019-12-27 16:48] LABS: Glucose Point of Care 289 (65-105)
[2019-12-27 18:53] LABS: Macrophages Peritoneal Fluid 33 %; Monocytes Peritoneal Fluid 67 %
[2019-12-27] MEDS: ATORVASTATIN 40 MG TABLET 80 MG PO (20:51)
[2019-12-27] MEDS: FAMOTIDINE 20 MG TABLET 40 MG PO (20:52)
[2019-12-27] MEDS: TERAZOSIN HCL 1 MG CAPSULE 2 MG PO (20:54)
[2019-12-27] MEDS: INSULIN GLARGINE (*BKC) 100 UNITS/ML 40 UNITS SUB-Q (20:55)
[2019-12-27 21:17] LABS: Glucose Point of Care 195 (65-105)
[2019-12-28] VITALS (7 sets, daily range): BP systolic 144–173; BP diastolic 55–68; PULSE 55–62; RESP 14–16; TEMP 36.2–36.6; O2SAT 95–98
[2019-12-28 05:35] LABS: Blood Urea Nitrogen 63 mg/dL (9-20); Calcium 8.5 mg/dL (8.4-10.2); Carbon Dioxide 28 mmol/L (22-30); Chloride 96 mmol/L (98-107); Estimated CRCL calculation 23 ml/min; Estimated Glomerular Filt Rate 14; Glucose 440 mg/dL (75-110); Potassium 3.7 mmol/L (3.4-5.0); Sodium 131 mmol/L (137-145)
[2019-12-28] MEDS: hydrALAZINE HCL 50 MG TABLET 100 MG PO ×2 (06:04→14:53)
[2019-12-28] MEDS: HEPARIN SODIUM 5,000 UNITS/ML VIAL 5000 UNITS SUB-Q (06:04)
[2019-12-28] MEDS: INSULIN HUMAN REGULAR (*BKC) 100 UNITS/ML 9 UNITS SUB-Q (06:31)
[2019-12-28 06:44] LABS: Glucose Point of Care 430 (65-105)
[2019-12-28] MEDS: INSULIN ASPART (*BKC) 100 UNITS/ML 8 UNITS SUB-Q ×2 (07:54→11:37)
[2019-12-28] MEDS: POTASSIUM CHLORIDE 10 MEQ TABLET.ER PO (07:57)
[2019-12-28] MEDS: ASPIRIN 81 MG CHEWABLE TABLET PO (08:01)
[2019-12-28] MEDS: CALCIUM ACETATE 667 MG TABLET PO ×2 (08:01→14:54)
[2019-12-28] MEDS: calcitrioL 0.25 MCG CAPSULE PO (08:01)
[2019-12-28] MEDS: carvediloL 25 MG TABLET PO (08:02)
[2019-12-28] MEDS: EZETIMIBE 10 MG TABLET PO (08:02)
[2019-12-28] MEDS: CLOPIDOGREL BISULFATE 75 MG TABLET PO (08:02)
[2019-12-28] MEDS: FEBUXOSTAT 40 MG TABLET PO (08:02)
[2019-12-28] MEDS: CLONIDINE HCL 0.1 MG TABLET PO (08:02)
[2019-12-28] MEDS: METOPROLOL TARTRATE 50 MG TAB 100 MG PO (08:03)
[2019-12-28] MEDS: LORATADINE 10 MG TABLET PO (08:03)
[2019-12-28] MEDS: PANTOPRAZOLE 40 MG TABLET PO (08:03)
[2019-12-28] MEDS: ISOSORBIDE MONONITRATE 30 MG TAB.ER.24H PO (08:03)
[2019-12-28] MEDS: RANOLAZINE 500 MG TAB.ER.12H PO (08:03)
[2019-12-28 11:25] LABS: Glucose Point of Care 298 (65-105)
[2019-12-28] MEDS: INSULIN ASPART (*BKC) 100 UNITS/ML SUB-Q (11:37)
--- NOTE | 2019-12-28 13:21 | PM.DS ---
DS: Diagnosis Admitting Diagnosis Admitting Diagnosis: Type 2 diabetes mellitus with ketoacidosis without coma Discharge Diagnosis (1) DKA (diabetic ketoacidoses): Code(s): E11.10 - Type 2 diabetes mellitus with ketoacidosis without coma Status: Acute Assessment and Plan: Pt states his pump is fine. Pt states he was eating bit too much during quarantine time. Pt sugars are doing better with novolog 8 U ac with slide and lantus 40 hs Pt wants to stick with his own insulin pump. (2) Chest pain: Qualifiers: Chest pain type: precordial pain Qualified Code(s): R07.2 - Precordial pain Code(s): R07.9 - Chest pain, unspecified Status: Acute Assessment and Plan: Atypical chest pain with borderline troponin. Echo in the past, showed normal ejection fraction with mild and pulmonary hypertension. Cath from08/08 revealed patent stents, continue his aspirin Plavix beta-umair and nitrate (3) HTN (hypertension): Code(s): I10 - Essential (primary) hypertension Status: Acute Assessment and Plan: Continue clonidine, hydralazine, metoprolol, (4) Chronic kidney disease (CKD): Qualifiers: Chronic kidney disease stage: stage 5, not on chronic dialysis Qualified Code(s): N18.5 - Chronic kidney disease, stage 5 Code(s): N18.9 - Chronic kidney disease, unspecified Status: Acute Assessment and Plan: Dr Reyes is rounding, pt to continue with peritoneal dialysis. (5) Anemia: Code(s): D64.9 - Anemia, unspecified Status: Acute Assessment and Plan: Anemia of chronic disease. Hemoglobin is 11.8 (6) Hyponatremia: Code(s): E87.1 - Hypo-osmolality and hyponatremia Status: Acute Assessment and Plan: Suspect all secondary to pseudo hyponatremia with elevated sugar (7) DVT prophylaxis: Code(s): Z29.9 - Encounter for prophylactic measures, unspecified Status: Acute Assessment and Plan: was on Sc heparin in hospital DS: Summary Time Spent with Patient Time attestation: Total time spent providing and/or coordinating discharge services:40 minutes on day of dischrage Exam Narrative: Exam Narrative: Temp Pulse Resp BP Pulse Ox 36.2 C L 59 L 14 162/63 H 98 12/28/19 10:00 12/28/19 10:00 12/28/19 10:00 12/28/19 10:00 12/28/19 10:00 Middle aged man overweight very pleasant Lungs clear CV regular rate rhythm systolic ejection murmur lower left sternal border Abdomen is soft bowel sounds present dialysis catheter in place Extremities without edema distal pulses 1+ Integument no skin breakdown rashes Psych appropriate pleasant cooperative Neuro cranial nerves 2-12 are intact no focal neurological deficits DS: Data Data Completed and Pending Labs on day of discharge: Labs from last 24 hours 12/28/19 12/28/19 12/28/19 11:16 06:03 05:05 Sodium 131 L Potassium 3.7 Chloride 96 L Carbon Dioxide 28 BUN 63 H Creatinine 4.60 H Estim Creat Clear Calc 23 Estimated GFR 14 L Glucose 440 H POC Capillary Glucose 298 H 430 H Calcium 8.5 Peritoneal Source Peritoneal Color Peritoneal Appearance Peritoneal RBC Periton Nuc Cells Peritoneal Monocytes Periton Macrophages 12/27/19 12/27/19 12/27/19 20:50 16:13 14:17 Sodium Potassium Chloride Carbon Dioxide BUN Creatinine Estim Creat Clear Calc Estimated GFR Glucose POC Capillary Glucose 195 H 289 H Calcium Peritoneal Source Peritoneal fluid Peritoneal Color Colorless Peritoneal Appearance Clear Peritoneal RBC 149 Periton Nuc Cells 80 Peritoneal Monocytes 67 Periton Macrophages 33 Preliminary micro results at discharge 12/26/19 18:03 Blood Culture - Preliminary Blood 05
[2019-12-28 13:40] LABS: Glucose Point of Care 261 (65-105)
--- NOTE | 2019-12-28 15:05 | PC.NURSE ---
Patient being discharged. Has insulin pump and has reconnected it. Blood glucose checked with our monitor - 261. Checked with insulin pump - 262. Heparin SQ scheduled at 1400 held as patient is discharged.
== END 2019-12-28 16:10 | disposition home or self-care (01) | DRG 637 ==
LOC: ANHED 11:53 → ANHICU 16:48 → ANH2MED 12-27 23:20 → ANHICU 12-31 12:24
PROVIDERS: Family Medicine; Internal Medicine; Internal Medicine Nephrology; Admitting Provider Internal Medicine; Emergency Provider Emergency Medicine; PCP Family Medicine; Visit Provider Family Medicine
DX: E10.10 Type 1 diabetes mellitus with ketoacidosis without coma (principal); N18.6 End stage renal disease; I13.2 Hypertensive heart and chronic kidney disease with heart failure and with stage 5 chronic kidney disease, or end stage renal disease; E87.1 Hypo-osmolality and hyponatremia; N25.81 Secondary hyperparathyroidism of renal origin; E10.22 Type 1 diabetes mellitus with diabetic chronic kidney disease; E10.65 Type 1 diabetes mellitus with hyperglycemia; E86.0 Dehydration; I50.9 Heart failure, unspecified; E10.21 Type 1 diabetes mellitus with diabetic nephropathy; D63.1 Anemia in chronic kidney disease; F41.9 Anxiety disorder, unspecified; M19.90 Unspecified osteoarthritis, unspecified site; I25.10 Atherosclerotic heart disease of native coronary artery without angina pectoris; E78.5 Hyperlipidemia, unspecified; K21.9 Gastro-esophageal reflux disease without esophagitis; G47.33 Obstructive sleep apnea (adult) (pediatric); I27.20 Pulmonary hypertension, unspecified; R07.89 Other chest pain; E87.6 Hypokalemia; Z86.718 Personal history of other venous thrombosis and embolism; I25.2 Old myocardial infarction; Z95.5 Presence of coronary angioplasty implant and graft; Z79.82 Long term (current) use of aspirin
CPT/HCPCS: 36415; 71046; 73502; 80048; 80053; 80069; 80076; 81001; 82010; 82948; 83036; 83735; 84100; 84443; 84484; 85025; 85610; 85730; 86706; 87040; 87070; 87075; 87205; 87340; 88104; 88108; 88305; 89051; 90945; 93005; 96361; 96374; 99285; A9270; J1644; J1815; J3480; J7030

== ENCOUNTER 2020-01-30 11:00 | Outpatient (RCR) | payer MEDICARE, MEDICAID, SELFPAY ==
--- NOTE | 2020-01-10 15:54 | PTOPEVAL ---
PHYSICAL THERAPY EVALUATION AND PLAN OF CARE 01-10-2020 The PT evaluation was completed for the diagnosis of chronic back pain. The plan of care is scheduled for 2x/week for 4 weeks. Thank you for referring Juvenal Daigle to [facility]. Please review, sign, date and return this plan of care NIMA. I agree with and certify that the following plan of care is medically necessary. Referring Physician Date Attending Provider: Aditya Castro, *PT Outpatient Evaluation Start: 01/10/20 14:43 Document 01/10/20 14:40 FELIX (Rec: 01/10/20 15:38 FELIX [id number]) Outpatient Past Medical History Past Medical History Source of Past Medical History Patient Neurological History Hx Seizures Yes: 2016- not any since then Cardiovascular History Hx Cardiac Catheterization Yes: MOST RECENT AUG 2019 Hx Congestive Heart Failure Yes Hx Coronary Artery Disease Yes Hx Coronary Stent Yes: STENTS PLACED ON MAR 2017 , NOV 2018 @ [facility] Hx Deep Vein Thrombosis Yes: R knee Hx Hypercholesterolemia Yes Hx Hypertension Yes Hx Myocardial Infarction Yes: MAR 2017 Respiratory History Hx Sleep Apnea Yes: CPAP use Gastrointestinal History Hx Appendectomy Yes Hx Gastroesophageal Reflux Disease Yes Hx Hernia Yes: UMBILICAL HERNIA REPAIR W / 2018 Genitourinary History Hx Renal Disease Yes: CKD Hx Other Genitourinary Disorders Yes: PERITONEAL DIALYSIS CATH; infectsion dialysis cath site Musculoskeletal History Hx Arthritis Yes: hands, shoulders, hips, knees, back Hematological History Hx Anemia Yes Endocrine History Hx Diabetes Yes Hx Insulin Pump Yes: hospitalized December 28, 2019 due to pump malfunction HEENT History Hx Cataracts Yes: IVETH EXTRACTION Integumentary History Hx Skin Disorders No Significant History Reproductive History Hx Reproductive Disorders No Significant History Psychosocial History Hx Psychiatric Disorders No Significant History Pain History History of Any Previous or Ongoing No Significant History Instance of Pain Anesthesia History Hx Anesthesia Reactions No Significant History Evaluation Information Problem Diagnosis chronic low back pain Onset November 2019 Subjective Information about one month ago, somewhat Query Text:As Reported By Patient/ worse; had recent xray which Family was negative; dr sent for PT; Diagnostic Tests X-Rays For This Problem Yes: B hip report: B hip mild O
--- NOTE | 2020-01-17 11:46 | PCPTNOTE ---
pt did not show for today's appt, when I called him, he had the wrong time, thought it was this afternoon. reminded him of next week appt time;
--- NOTE | 2020-01-21 11:36 | PCPTNOTE ---
pt did not show for today's appt;
--- NOTE | 2020-01-28 11:44 | PCPTNOTE ---
Patient did not show up for scheduled appointment this date.
--- NOTE | 2020-02-04 10:28 | PCPTNOTE ---
Patient did not show up for scheduled appointment this date, spoke to Etta Gonzalez, & was told patient had called yesterday, stating he was in the hospital, & wasn't sure if he would be discharged in time for his appointment today.
--- NOTE | 2020-02-06 11:24 | PCPTNOTE ---
pt did not show for today's reevaluation appt;
--- NOTE | 2020-02-24 09:22 | PCPTNOTE ---
pt did not show for today's reevaluation appt;
--- NOTE | 2020-03-06 15:18 | PCPTNOTE ---
called and ney today's reeval due to blood sugar elevated and not feeling well;
--- NOTE | 2020-04-13 16:23 | PCPTNOTE ---
PHYSICAL THERAPY DISCHARGE 04-13-2020 Attending Provider: Aditya Castro, Patient:Juvenal Daigle Jr. Date of :1970 Juvenal has not returned for any further treatments since 01/30/2020, for the diagnosis of low back pain; therefore he will be discharged at this time. The goals were not addressed. The initial evaluation was on 01/10/2020. He had 4 treatments, 6 no shows and he called and canceled the reevaluation appointment on March 06. Thank you for referring Mr. Daigle to [facility]. Please review, sign, date and return this discharge summary NIMA. I have been updated about the patient's current status and I agree with discharge from the above service at this time. Referring Physician Date
== END 2020-04-09 23:59 | disposition home or self-care (01) ==
LOC: ANHPT 11:00
PROVIDERS: PCP Family Medicine; Visit Provider Family Medicine
DX: M54.5 Low back pain (principal)
CPT/HCPCS: 97014; 97110; 97161; G0283

== ENCOUNTER 2020-01-30 21:38 | Inpatient (IN) | payer MEDICARE, MEDICAID, SELFPAY ==
--- NOTE | ~2020-01-30 | XR_ITS ---
EXAMINATION: XR chest 2V DATE: 01/30/2020 22:14 INDICATION: Mid to left-sided chest pain. Nausea. TECHNIQUE: Frontal and lateral views of the chest were obtained. COMPARISON: Chest 2 views 12/26/2019 FINDINGS: The chest demonstrates clear lungs without pneumonia, pleural effusion, or pneumothorax. Th e heart size is normal. IMPRESSION: 1. No acute cardiopulmonary disease. Reviewed, dictated and finalized at location A.
--- NOTE | 2020-01-30 21:40 | ECG_ITS ---
Measurements Intervals [place] Rate: 68 P: 7 NC: 209 QRS: -51 QRSD: 117 T: 67 QT: 471 QTc: 504 Interpretive Statements SINUS RHYTHM LEFT ANTERIOR FASCICULAR BLOCK LEFT VENTRICULAR HYPERTROPHY AND ST-T CHANGE CANNOT RULE OUT SEPTAL INFARCT, AGE INDETERMINATE BORDERLINE ST-T WAVE ABNORMALITY- HIGH LATERAL LEADS BASELINE ARTIFACT- I, II, AVR, V1-V6 ABNORMAL ECG Electronically Signed On 01-31-2020 7:08:57 CDT by Doc Dorantes D.O.
[2020-01-30 21:42] VITALS: BP 146/60; PULSE 67; RESP 24; TEMP 36.8; O2SAT 100
[2020-01-30 21:45] VITALS: PULSE 67
--- NOTE | 2020-01-30 21:46 | ED.CHESTPAIN ---
HPI - Chest Pain General Chief Complaint: Chest Pain Stated Complaint: chest pain History of Present Illness HPI narrative: 49 yo male BIBEMS from home for chest pain. Sharp substernal chest pain for the past 3 hours. radiates to the left shoulder. Associated with nausea and SOB. additionally found to have high blood sugar, meter read high. No fever, chills, vomiting. Related Data Home Medications Medication Instructions Recorded Confirmed aspirin 81 mg PO DAILY 06/04/19 01/31/20 calcitriol 0.25 mcg PO QAM 06/04/19 01/31/20 clonidine HCl 0.1 mg PO QAM AND QPM 06/04/19 01/31/20 clopidogrel 75 mg PO DAILY 06/04/19 01/31/20 ergocalciferol (vitamin D2) 50,000 unit PO WEEKLY 06/04/19 01/31/20 [Vitamin D2] hydralazine 100 mg PO Q8H 06/04/19 01/31/20 nitroglycerin 0.4 mg SUBLINGUAL Q5-15M PRN 06/04/19 01/31/20 terazosin 2 mg PO HS 06/04/19 01/31/20 ezetimibe [Zetia] 10 mg PO DAILY 09/09/19 01/31/20 isosorbide mononitrate 30 mg PO DAILY 09/09/19 01/31/20 metoprolol tartrate 100 mg PO Q12H 09/09/19 01/31/20 ranolazine 500 mg tablet,extended 500 mg PO Q12H 09/24/19 01/31/20 release,12 hr glucagon HCl 1 mg solution for 1 mg SUB-Q Q20M PRN each 09/29/19 01/31/20 injection atorvastatin 80 mg PO HS 10/18/19 01/31/20 cetirizine [All Day Allergy 10 mg PO DAILY 12/26/19 01/31/20 (cetirizine)] colchicine 0.3 mg PO QMWF 12/26/19 01/31/20 febuxostat 40 mg PO DAILY 12/26/19 01/31/20 carvedilol 25 mg PO BID 01/31/20 01/31/20 Allergies Allergy/AdvReac Type Severity Reaction Status Date / Time iohexol Allergy Severe Difficulty Verified 12/26/19 09:49 [From CONTRAST - CT, XRAY] Breathing ticagrelor Allergy Intermediate Rash Verified 12/26/19 09:49 Review of Systems Review of Systems: All systems reviewed & are unremarkable except as noted in HPI and below Constitutional: Constitutional: Denies fever(s) Cardiovascular: Cardiovascular: Reports chest pain Respiratory: Respiratory: Reports dyspnea Gastrointestinal: Gastrointestinal: Denies abdominal pain and Reports nausea PMFSH Past Medical History Medical History Anemia in chronic kidney disease, on chronic dialysis Anxiety Arthritis Bronchitis CHF (congestive heart failure) Echocardiogram May 2017 EF of 50% with hypokinetic apical, inferior and basal inferior lateral segment, mild enlargement of left atrium Diabetic peripheral neuropathy Diabetic retinopathy Fracture rt leg GERD (gastroesophageal reflux disease) History of coronary artery disease History of DVT (deep vein thrombosis) Behind right knee chronic History of gout Hyperlipidemia Hypertension, essential Myocardial infarction Obstructive sleep apnea With inconsistent CPAP use Paroxysmal atrial fibrillation Secondary hyperparathyroidism of renal origin Type 1 diabetes mellitus Onset around age 13 Type 1 diabetes mellitus with stage 5 chronic kidney disease Surgical History Surgical History H/O arthroscopic knee surgery lt knee History of anterior cruciate ligament surgery 2000 History of appendectomy 2007 History of bilateral carpal tunnel release Right 05/03/2018, left 06/02/2018 History of cardiac catheterization -cardiac catheterization August 2019 demonstrated patent stents with 40% stenosis of 1 vessel with no stents or angioplasty performed per patient report -3 stents November 2018 [facility] -cardiac catheterization March 2017 demonstrating mild diffuse coronary disease 80% lesion small sub branch of obtuse marginal 1 and 90% stenosis distal RCA into the origin of the PDA with PTCA and stent to the RPDA/distal RCA performed by Dr. Petit Leg fracture, right ORIF 1982 Family History Family History Father , in his late 60s Hypertension Dementia Acute myocardial infarction P
[2020-01-30] MEDS: MORPHINE SULFATE 4 MG/ML INJ IV PUSH (21:55)
[2020-01-30 22:14] LABS: Basophils Percent Auto 0.3 % (0.2-1.2); Eosinophils Percent Auto 0.7 % (0-4.4); Hematocrit 38.5 % (42.0-52.0); Hemoglobin 12.4 g/dL (14.0-18.0); Immature Granulocyte Absolute 0.02 K/mm3 (0.00-0.031); Immature Granulocyte Percent A 0.3 % (0-0.5); Lymphocytes Absolute Auto 1.31 K/mm3 (0.9-3.2); Lymphocytes Percent Auto 22.7 % (18.3-44.2); Mean Corpuscular HGB Conc 32.2 g/dl (32-36); Mean Corpuscular Hemoglobin 29.4 pg (26-34); Mean Corpuscular Volume 91.2 fl (80-100); Mean Platelet Volume 10.2 fl (7.4-10.4); Monocytes Absolute Auto 0.7 K/mm3 (0.1-0.6); Monocytes Percent Auto 12.2 % (2.6-8.5); Neutrophils Absolute Auto 3.7 K/mm3 (1.3-6.7); Neutrophils Percent Auto 63.8 % (45.5-73.1); Platelet Count Result 178 k/mm3 (150-375); Red Blood Count 4.22 M/mm3 (4.6-6.20); Red Cell Distribution Width 14.3 % (11.5-14.5); White Blood Count 5.8 K/mm3 (4.5-10.0)
[2020-01-30 22:24] LABS: Partial Thromboplastin Time 25.3 SECONDS (22.3-36.8); Prothrombin Time 12.4 Seconds (11.1-14.7)
[2020-01-30 22:27] LABS: Alanine Aminotransferase 25 U/L (4-50); Albumin Level 3.6 g/dL (3.5-5.1); Alkaline Phosphatase 131 U/L (38-126); Aspartate Amino Transferase 29 U/L (17-59); Bilirubin,Total 0.8 mg/dL (0.2-1.3); Blood Urea Nitrogen 59 mg/dL (9-20); Calcium 8.3 mg/dL (8.4-10.2); Carbon Dioxide 16 mmol/L (22-30); Chloride 86 mmol/L (98-107); Estimated CRCL calculation 20 ml/min; Estimated Glomerular Filt Rate 12; Potassium 4.7 mmol/L (3.4-5.0); Sodium 122 mmol/L (137-145)
[2020-01-30 22:35] LABS: Glucose 837 mg/dL (75-110)
[2020-01-30 22:37] LABS: Troponin I 0.028 ng/mL (0.000-0.034)
[2020-01-30] MEDS: SODIUM CHLORIDE 0.9% IV 1,000 ML 999 ML IV CONT (23:13)
[2020-01-30 23:26] VITALS: BP 115/47; PULSE 94; RESP 15; O2SAT 97
[2020-01-30] MEDS: INSULIN HUMAN REGULAR (*BKC) 100 UNITS/ML 10 UNITS IV PUSH (23:33)
[2020-01-31] VITALS (12 sets, daily range): BP systolic 122–162; BP diastolic 49–66; PULSE 53–67; RESP 12–20; TEMP 36.6–37; O2SAT 92–97; BMI 38.7; BMI 38.8
[2020-01-31 01:48] LABS: Troponin I 0.034 ng/mL (0.000-0.034)
[2020-01-31 02:37] LABS: Blood Urea Nitrogen 65 mg/dL (9-20); Calcium 8.1 mg/dL (8.4-10.2); Carbon Dioxide 20 mmol/L (22-30); Chloride 88 mmol/L (98-107); Estimated CRCL calculation 20 ml/min; Estimated Glomerular Filt Rate 12; Glucose 739 mg/dL (75-110); Potassium 4.2 mmol/L (3.4-5.0); Sodium 124 mmol/L (137-145)
[2020-01-31] MEDS: INSULIN HUMAN REGULAR (*BKC) 100 UNITS in SODIUM CHLORIDE 0.9% IV 99 ML 13.6 UNITS IV CONT (03:06)
[2020-01-31] MEDS: SODIUM CHLORIDE 0.9% IV 1,000 ML 100 ML IV CONT (03:08)
--- NOTE | 2020-01-31 03:14 | PM.IMHP ---
H&P: HPI History of Present Illness Chief complaint: chest pain Narrative: Date and time of patient contact: 01/31/2020 at 4:00 a.m. Juvenal Daigle Jr. is a 49 year old male with a past medical history of coronary artery disease, hypertension, and type 1 diabetes who presented to the ER via EMS with chest pain. The patient reports that the chest pain was pressure-like in nature and started in the left chest and went across his sternum. Is accompanied by a sensation of numbness and heaviness in his left arm. His symptoms were unrelieved despite taking his home nitro. He reports that his nitroglycerin is supposed to sometime this year. The pain lasted 3 or 4 hours and did not let up until he received morphine in the ER. However when he received morphine in the ER he had several episodes of vomiting. He denies having prior episodes of vomiting and has not been having any diarrhea. He was lifting and pulling on stuff several days ago and his pain is reproducible to palpation across the sternum and left chest. He had noticed some blood in his dialysate fluid a few days ago and that was thought to be due to him lifting and straining the day or so prior to that. He denies any abdominal pain the but did have some mild epigastric tenderness when he was in the ER. He has not had any epigastric tenderness currently. He has been having hiccups quite a lot recently. He has had history of multiple cardiac stents with his last cardiac catheterization in August 2019 at [facility] demonstrating only 1 vessel with 40% stenosis. He reports that when he has non STEMI as his symptoms are usually shortness of breath. He does not usually have chest pain. The only other time he has had chest pain similar to this was [place] had glucoses greater than a 1000 in December. He reports that the pain in the ER was significantly worse than his prior chest pain. His pain currently as a 2/10 in intensity. He denies any cough, congestion, shortness of breath or fever. He has not noticed any lower extremity swelling since he was started on peritoneal dialysis. He has been on peritoneal dialysis for about 3 months per his report. He does check his temperatures daily and he has been afebrile. He does do peritoneal dialysis nightly. His dialysis is managed by Dr. Reyes. His embroidery machine operator is Dr. Ortega. He reports that his glucoses have been between 2 and 300 when he wakes up in the morning. He was going to go to his branch operations specialist office and have his pump settings adjusted. He reports that in the middle part of the day his site had become dislodged. He had replaced his infusion site but his glucoses were not coming down with boluses. His hemoglobin A1c on admission is 9.0. His hemoglobin A1c has been creeping up since August. He reports that he has not had that much to eat today. He had had hash browns for breakfast, for egg rolls around 10:30 and a couple of chicken nuggets at around 1:00 p.m.. He noticed a large bruise on his medial-posterior left thigh earlier today. He does not remember a specific injury. He reports that the area has been itching. He thought it was a bug bite initially. The patient's insulin pump settings were reviewed. He receives 1.4 units of insulin from midnight till 5:00 a.m.. He received 1.6 units from 5:00 a.m. to 1:00 p.m.. He received 1.5 units from 1:00 p.m. to 12:00 a.m. he has a insulin to carb ratio of 1 unit of insulin for every 7 carbohydrates. For every 25 mg/dL of glucose above a glucose of 120 he received 1 unit of insulin. Review of Systems Review of Systems: Narrative: 12 systems were reviewed with pertinent positives and negatives per HPI. Except as documented in the HPI, all other systems were reviewed and are negative. [facility] Past Medical History Medical History (Updated 01/31/20 @ 05:26 by Anali Hull DO) Anemia in chronic kidney disease, on chronic dialysis Anxiety Arthritis Bronchitis CHF (conge
--- NOTE | 2020-01-31 03:43 | ADMGEN ---
This patient, Juvenal Daigle Jr., was admitted to Intensive Care Unit-11. Patient/family oriented to hospital policies and general routines including ID bracelet, bed and alarms, visiting hours, pain management, procedures, bathroom and other care routines, personal items, smoking policy, room service/diet, and visiting hours. Valuables list has been completed. Information on how to activate the Rapid Response Team has been discussed. Patient/Family are encouraged to report perceived risks to care and to ask questions if they do not understand what they are told or what they should do.
[2020-01-31 04:07] LABS: Glucose Point of Care > 500 (65-105)
[2020-01-31] MEDS: hydrALAZINE HCL 50 MG TABLET 100 MG PO ×3 (04:48→21:42)
[2020-01-31] MEDS: NITROGLYCERIN OINTMENT 1 INCH DOSE TRANSDERM (05:53)
[2020-01-31 06:05] LABS: Glucose Point of Care > 500 (65-105)
[2020-01-31 06:05] LABS: Glucose Point of Care > 500 (65-105)
[2020-01-31 06:23] LABS: Blood Urea Nitrogen 66 mg/dL (9-20); Calcium 8.2 mg/dL (8.4-10.2); Carbon Dioxide 21 mmol/L (22-30); Chloride 88 mmol/L (98-107); Estimated CRCL calculation 20 ml/min; Estimated Glomerular Filt Rate 11; Glucose 592 mg/dL (75-110); Potassium 3.8 mmol/L (3.4-5.0); Sodium 125 mmol/L (137-145)
[2020-01-31 06:38] LABS: Troponin I 0.048 ng/mL (0.000-0.034)
[2020-01-31 06:59] LABS: Glucose Point of Care 428 (65-105)
[2020-01-31 07:33] LABS: Glucose Point of Care 433 (65-105)
[2020-01-31 08:04] LABS: Glucose Point of Care 424 (65-105)
[2020-01-31] MEDS: INSULIN HUMAN REGULAR (*BKC) 100 UNITS in SODIUM CHLORIDE 0.9% IV 99 ML 21.8 UNITS IV CONT (08:16)
[2020-01-31] MEDS: CLONIDINE HCL 0.1 MG TABLET PO ×2 (08:18→17:03)
[2020-01-31] MEDS: LORATADINE 10 MG TABLET PO (08:18)
[2020-01-31] MEDS: calcitrioL 0.25 MCG CAPSULE PO (08:18)
[2020-01-31] MEDS: EZETIMIBE 10 MG TABLET PO (08:18)
[2020-01-31] MEDS: RANOLAZINE 500 MG TAB.ER.12H PO ×2 (08:18→21:42)
[2020-01-31] MEDS: ISOSORBIDE MONONITRATE 30 MG TAB.ER.24H PO (08:18)
[2020-01-31] MEDS: CLOPIDOGREL BISULFATE 75 MG TABLET PO (08:19)
[2020-01-31] MEDS: ASPIRIN 81 MG CHEWABLE TABLET PO (08:22)
[2020-01-31 09:01] LABS: Glucose Point of Care 440 (65-105)
[2020-01-31] MEDS: LACTATED RINGERS 500 ML 999 ML IV CONT (09:33)
--- NOTE | 2020-01-31 09:36 | PM.CNCAR ---
Assessment and Plan Additional Plan 49-year-old patient with coronary artery disease previous interventional revascularization in the distal RCA here back in 2017 and then additional PCI done by his current broadcast checker in 2019 details unknown to us. He did have a angiogram less than 6 months ago by that practice demonstrated no significant coronary lesions. Enters the hospital with an atypical chest pain syndrome. He has in my opinion ruled out for acute coronary syndrome his biomarkers are modestly elevated as 1 would expect with end-stage renal disease but the pattern is flat there is no evidence on this stated that he has an acute coronary syndrome. His medical regimen is extensive but is appropriate given his history. Obviously he is markedly hyperglycemic and that is being addressed by the primary team. At this point I do not believe he needs a ischemia workup since there is no objective evidence of ischemia and he did have a favorable angiogram less than 6 months ago. Abelardo Petit MD [facility] History of Present Illness History of Present Illness Consult date/time: Date of service: 01/31/20 09:36 Consult reason: chest pain Reason For Visit: chest pain Narrative: This is a 49-year-old gentleman who is known to me from previous consultations and admissions here at [facility] seeing him today at the request of the hospitalist because of chest pain and elevated troponin levels. Patient is known to me when he presented to this hospital initially in May of 2017 with ischemic chest pain and had a high-grade stenosis in the distal portion of his RCA. He at that time he also had moderate lesion in a sub branch of an obtuse marginal circumflex artery. He underwent successful PCI with stenting of his distal RCA lesion with a good result. Following that he for whatever reason has transitioned his care from our practice to that of [facility] and we have not been directly involved in his care. Over the years we have seen him a number of occasions when he comes to this hospital was symptomatology but I have not been any subsequent procedures on him. According to the records he has been in the hospital here at [facility] and several other hospitals with chest pain symptoms and episodes of diabetic ketoacidosis multiple times in the last couple of years. According to the records after transitioning his care to the current Cardiology practice he has undergone an angiogram with a PCI receiving several stents in 2008. The details of that procedure are not available to me at the time of this dictation. He did have a most recent follow-up angiogram in August of this year because of symptoms of chest pain which did not demonstrate any significant coronary lesions. The patient was in the hospital here at [facility] about a month ago with significant hyperglycemia. Did not have any cardiac symptoms at that time. He states that he came to the emergency room here yesterday because of some chest pain he describes a central sternal chest pain with some sensation of numbness in his left arm. The symptoms lasted altogether for 3 or 4 hours and resolved after he was given morphine in the emergency room. After he was given morphine he did have some nausea but it did relieve his pain. His electrocardiogram does not show any acute ST segment abnormalities to indicate a current of injury. His troponin levels are modestly elevated in a flat pattern that is chronic for him and expected given his renal failure. Patient has a history of longstanding diabetes as detailed above which has been very poorly controlled with multiple admissions to the hospital here and elsewhere with hyperglycemia and ketoacidosis. He has a history in addition to that of status heart disease and renal failure he has now been on peritoneal dialysis for about 2 months and he has a history of peripheral neuropathy as well. When I entered the room to see him this morning he appeared t
[2020-01-31 10:15] LABS: Glucose Point of Care 271 (65-105)
[2020-01-31 10:34] LABS: Blood Urea Nitrogen 66 mg/dL (9-20); Calcium 8.2 mg/dL (8.4-10.2); Carbon Dioxide 26 mmol/L (22-30); Chloride 93 mmol/L (98-107); Estimated CRCL calculation 22 ml/min; Estimated Glomerular Filt Rate 13; Glucose 280 mg/dL (75-110); Potassium 3.3 mmol/L (3.4-5.0); Sodium 128 mmol/L (137-145)
[2020-01-31 11:21] LABS: Glucose Point of Care 172 (65-105)
[2020-01-31 11:57] LABS: Glucose Point of Care 110 (65-105)
--- NOTE | 2020-01-31 13:04 | WPDCNINT ---
Assessment and Plan Assessment and plan (1) DKA (diabetic ketoacidosis): Code(s): E11.10 - Type 2 diabetes mellitus with ketoacidosis without coma Status: Acute Assessment and Plan: Patient presented with diabetic ketoacidosis, blood sugars have been elevated since he started his he peritoneal dialysis about 3 months ago. Patient states his insulin pump dislodged and after he reinserted his pump at a different site blood sugars remained consistently elevated. -in the ER, blood sugars were in the 800s, elevated anion gap. Patient was given IV fluid bolus of 1 L and started on insulin infusion per DKA protocol -give 500 mL IV fluid bolus in the ICU this morning. -transition patient to long-acting insulin and sliding scale insulin once anion gap closes. -when A1c of 9.0 this admission (2) Chest pain: Qualifiers: Chest pain type: unspecified Qualified Code(s): R07.9 - Chest pain, unspecified Code(s): R07.9 - Chest pain, unspecified Status: Acute Assessment and Plan: Patient with chest pain and mildly elevated troponin -cardiology evaluated the patient, patient has had multiple previous interventional recannulization in the distal RCA here at [facility] in 2017. Patient also had a stent placed in 1019 with his current setter automatic spinning lathe details of which are known to us. -chest pain syndrome most likely thought to be secondary to diabetic ketoacidosis, possible dehydration. EKG did not show any acute ST-T changes -appreciate Cardiology evaluation and recommendations, at this time no need for ischemic workup -continue aspirin, atorvastatin, Plavix, isosorbide mononitrate, Ranexa (3) End-stage renal disease (ESRD): Code(s): N18.6 - End stage renal disease Status: Acute Assessment and Plan: Patient end-stage renal disease, on peritoneal dialysis. -nephrology has been consulted (4) Hyponatremia: Code(s): E87.1 - Hypo-osmolality and hyponatremia Status: Acute Assessment and Plan: Hyponatremic any multifactorial, secondary to retic ketoacidosis and hypovolemia, -adequately fluid-resuscitated, will continue to monitor sodium levels. Patient also on peritoneal dialysis, nephrology following -likely will correct peritoneal dialysis Additional Plan Discussed with patient updated with his condition and plan of care. He is aware once anion gap closes he will be transition to long-acting insulin and sliding scale insulin. Code status: Full code Critical care time spent: 41 minutes Due to a high probability of clinically significant, life threatening deterioration, the patient required my highest level of preparedness to intervene emergently and I personally spent this critical care time directly and personally managing the patient. This critical care time included obtaining a history; examining the patient; pulse oximetry; ordering and review of studies; arranging urgent treatment with development of a management plan; evaluation of patient's response to treatment; frequent reassessment; and discussions with other providers. It was exclusive of separately billable procedures and treating other patients and teaching time. Please see Assessment and Plan section and the rest of the note for further information on patient assessment and treatment [employer] Consult Note Consult date: 01/31/20 Time Seen: 07:11 Reason for consult: Diabetic ketoacidosis, chest pain, end-stage renal disease on peritoneal dialysis HPI: Juvenal Daigle is a 49 year old male with significant past medical history of insulin-dependent diabetes, CHF, echocardiogram in 2017 showed an EF of 50%, coronary artery disease with multiple stents, in 2017 and 2019. The 2017 patient guarded stent to the distal RCA here at [facility]. He otherwise follows [facility]. Patient presented with chest pain to the ER with radiation to the left shoulder associated with nausea and short
[2020-01-31] MEDS: INSULIN GLARGINE (*BKC) 100 UNITS/ML 40 UNITS SUB-Q (13:27)
--- NOTE | 2020-01-31 14:06 | PM.CNNEP ---
Assessment and Plan Assessment and plan (1) End-stage renal disease (ESRD): Code(s): N18.6 - End stage renal disease Status: Acute Assessment and Plan: End-stage renal disease Hyponatremia in the setting of ESRD Hypokalemia in the setting of peritoneal dialysis Anemia of chronic kidney disease on erythropoietin History of secondary hyperparathyroidism Admitted with diabetic ketoacidosis Admitted with chest pain Plan: Will set the patient up for peritoneal dialysis tonight and will supervise. In the meantime being treated for DKA and now recovering, also cardiology following for the chest pain. Will follow for ESRD and related needs. Sugar control as per primary care team. Will follow History of Present Illness Reason for Consult Consult date: 01/31/20 Chief Complaint Chief complaint: chest pain History of Present Illness Narrative: 49-year-old white male, ESRD on the basis of type 1 diabetes mellitus with end-stage nephropathy, hypertensive renal disease, has a history of obstructive sleep apnea, CHF, coronary artery disease, stents, obstructive sleep apnea on CPAP, on peritoneal dialysis. Admitted with left upper shoulder left arm pain and also left upper chest pain. No associated shortness of breath or diaphoresis. Did have a bout of emesis in the emergency room. However since then she was also found to be in diabetic ketoacidosis and admitted for further management of the intensive care unit. We got notified this morning of the patient's admission. He is due for peritoneal dialysis. When seen in the ICU is feeling better. There is some bilateral lower extremity swelling. No fevers or chills. No cough. No increase in the shortness of breath. The patient is on cycler dialysis at night. He uses 2.5% Dianeal solution. Generally has tolerated dialysis well, he is regular with his dialysis. In fact I just saw him in the earlier part of this week. Review of Systems Review of Systems: All systems reviewed & are unremarkable except as noted in HPI and below PMFSH Past Medical History Medical History Anemia in chronic kidney disease, on chronic dialysis Anxiety Arthritis Bronchitis CHF (congestive heart failure) Echocardiogram May 2017 EF of 50% with hypokinetic apical, inferior and basal inferior lateral segment, mild enlargement of left atrium Diabetic peripheral neuropathy Diabetic retinopathy Fracture rt leg GERD (gastroesophageal reflux disease) History of coronary artery disease History of DVT (deep vein thrombosis) Behind right knee chronic History of gout Hyperlipidemia Hypertension, essential Myocardial infarction Obstructive sleep apnea With inconsistent CPAP use Paroxysmal atrial fibrillation Secondary hyperparathyroidism of renal origin Type 1 diabetes mellitus Onset around age 13 Type 1 diabetes mellitus with stage 5 chronic kidney disease Surgical History Surgical History H/O arthroscopic knee surgery lt knee History of anterior cruciate ligament surgery 2000 History of appendectomy 2006 History of bilateral carpal tunnel release Right 05/03/2018, left 06/02/2018 History of cardiac catheterization -cardiac catheterization August 2019 demonstrated patent stents with 40% stenosis of 1 vessel with no stents or angioplasty performed per patient report -3 stents November 2018 [facility] -cardiac catheterization March 2017 demonstrating mild diffuse coronary disease 80% lesion small sub branch of obtuse marginal 1 and 90% stenosis distal RCA into the origin of the PDA with PTCA and stent to the RPDA/distal RCA performed by Dr. Petit Leg fracture, right ORIF 1982 Family History Family History Father , in his late 60s Hypertension Dementia Acute myocardial infarction Premature
--- NOTE | 2020-01-31 16:07 | PM.IMPN ---
Progress Note: A&P Assessment and Plan (1) DKA (diabetic ketoacidoses): Qualifiers: Diabetes mellitus type: type 1 Diabetes mellitus complication detail: without coma Qualified Code(s): E10.10 - Type 1 diabetes mellitus with ketoacidosis without coma Code(s): E11.10 - Type 2 diabetes mellitus with ketoacidosis without coma Status: Acute Assessment and Plan: Patient has been admitted to the ICU for an insulin drip. Serial BMPs have been ordered per protocol. Will advance the patient's diet to his sugar free clears. Patient's insulin pump has been removed. 01/31/20 16:07 patient is a 49-year-old male with history of type 1 diabetes end-stage renal disease on peritoneal dialysis history of coronary artery disease status post stent and angioplasty patient presented emergency department with a complaint of left-sided chest pain for 3 hours prior to coming to emergency department he was also found to have blood sugar of 600 and in DKA, patient was transferred to ICU on insulin drip was was gently hydrated with consideration of end-stage renal disease on peritoneal dialysis this morning sugars are trending down discussed with pharmacy aide plan is to switch him over to long-acting insulin as his anion gap is closing, patient to be bowel functioning of his insulin pump patient was seen cosmetology educator has placed in on long-acting Lantus and sliding scale, patient also found to have slightly elevated tropes patient was seen by underwear trimmer since the tropes are slightly elevated and flat he does not suspect patient is having myocardial infarction most likely secondary to end-stage renal disease and stress of DKA, patient is feeling much better denies any chest pain shortness of breath palpitation fever or chills, patient be seen by his cartridge loader pharmacy aide and underwear trimmer (2) Chest pain: Qualifiers: Chest pain type: unspecified Qualified Code(s): R07.9 - Chest pain, unspecified Code(s): R07.9 - Chest pain, unspecified Status: Acute Assessment and Plan: Serial troponin so far relatively flat. Will continue to trend troponins and monitor on telemetry. (3) End-stage renal disease (ESRD): Code(s): N18.6 - End stage renal disease Status: Acute Assessment and Plan: Patient is on peritoneal dialysis nightly at home. Nephrology has been consulted. Subjective Date/time seen: 01/31/20 16:07 patient is a 49-year-old male with history of type 1 diabetes end-stage renal disease on peritoneal dialysis history of coronary artery disease status post stent and angioplasty patient presented emergency department with a complaint of left-sided chest pain for 3 hours prior to coming to emergency department he was also found to have blood sugar of 600 and in DKA, patient was transferred to ICU on insulin drip was was gently hydrated with consideration of end-stage renal disease on peritoneal dialysis this morning sugars are trending down discussed with pharmacy aide plan is to switch him over to long-acting insulin as his anion gap is closing, patient to be bowel functioning of his insulin pump patient was seen cosmetology educator has placed in on long-acting Lantus and sliding scale, patient also found to have slightly elevated tropes patient was seen by underwear trimmer since the tropes are slightly elevated and flat he does not suspect patient is having myocardial infarction most likely secondary to end-stage renal disease and stress of DKA, patient is feeling much better denies any chest pain shortness of breath palpitation fever or chills, patient be seen by his cartridge loader pharmacy aide and underwear trimmer Review of Systems Review of Systems: All systems reviewed & are unremarkable except as noted in HPI and below Exam Narrative: Exam Narrative: Moderately obese Const: General: comfortable and no acute distress HENMT: General nose exam: Normal nares present Mouth: Yes moist mucou
[2020-01-31 16:21] LABS: Glucose Point of Care 148 (65-105)
[2020-01-31] MEDS: INSULIN ASPART (*BKC) 100 UNITS/ML 8 UNITS SUB-Q (17:01)
--- NOTE | 2020-01-31 17:27 | PC.NURSE ---
Patient transported to [facility] via w/c. Medications sent with patient. Report given to LUAN Norman. Patient belongings sent with patient.
--- NOTE | 2020-01-31 17:29 | PC.NURSE ---
This patient, Juvenal Daigle , was received from ICU on 01/31/20 at 1729. Personal belongings list checked and signed. Patient/family oriented to unit policies and routines
[2020-01-31] MEDS: TERAZOSIN HCL 1 MG CAPSULE 2 MG PO (21:42)
[2020-01-31] MEDS: ATORVASTATIN 40 MG TABLET 80 MG PO (21:42)
[2020-01-31 21:46] LABS: Glucose Point of Care 330 (65-105)
[2020-02-01] MEDS: hydrALAZINE HCL 50 MG TABLET 100 MG PO ×3 (05:45→21:19)
[2020-02-01 06:00] VITALS: BP 148/59; PULSE 70; RESP 18; TEMP 36.4; O2SAT 97
[2020-02-01 07:16] VITALS: BP 152/49; PULSE 61; RESP 20; TEMP 37
[2020-02-01] MEDS: INSULIN ASPART (*BKC) 100 UNITS/ML 8 UNITS SUB-Q ×3 (08:10→17:37)
[2020-02-01 08:12] LABS: Glucose Point of Care > 500 (65-105)
[2020-02-01] MEDS: INSULIN GLARGINE (*BKC) 100 UNITS/ML 40 UNITS SUB-Q (08:12)
[2020-02-01] MEDS: LORATADINE 10 MG TABLET PO (08:17)
[2020-02-01] MEDS: CLOPIDOGREL BISULFATE 75 MG TABLET PO (08:17)
[2020-02-01] MEDS: calcitrioL 0.25 MCG CAPSULE PO (08:18)
[2020-02-01] MEDS: RANOLAZINE 500 MG TAB.ER.12H PO ×2 (08:18→21:19)
[2020-02-01] MEDS: CLONIDINE HCL 0.1 MG TABLET PO ×2 (08:18→18:54)
[2020-02-01] MEDS: ISOSORBIDE MONONITRATE 30 MG TAB.ER.24H PO (08:18)
[2020-02-01] MEDS: EZETIMIBE 10 MG TABLET PO (08:18)
[2020-02-01] MEDS: ASPIRIN 81 MG CHEWABLE TABLET PO (09:24)
[2020-02-01 09:37] LABS: Glucose Point of Care > 500 (65-105)
--- NOTE | 2020-02-01 10:17 | PM.PNCARD ---
Progress Note: A&P Assessment and Plan (1) Chest pain: Qualifiers: Chest pain type: unspecified Qualified Code(s): R07.9 - Chest pain, unspecified Code(s): R07.9 - Chest pain, unspecified Status: Acute Assessment and Plan: not ACS (2) HTN (hypertension): Code(s): I10 - Essential (primary) hypertension Status: Acute Assessment and Plan: slightly above goal (3) Hyperlipidemia: Code(s): E78.5 - Hyperlipidemia, unspecified Status: Chronic Assessment and Plan: on statin (4) Type 1 diabetes mellitus with hyperglycemia, with long-term current use of insulin: Code(s): E10.65 - Type 1 diabetes mellitus with hyperglycemia Status: Acute Assessment and Plan: blood sugars are still markedly elevated (5) Coronary artery disease: Qualifiers: Coronary Disease-Associated Artery/Lesion type: jackson artery [place] vs. transplanted heart: jackson heart Associated angina: without angina Qualified Code(s): I25.10 - Atherosclerotic heart disease of jackson coronary artery without angina pectoris Code(s): I25.10 - Atherosclerotic heart disease of jackson coronary artery without angina pectoris Status: Acute Assessment and Plan: continue current regimen Subjective Date/time seen: 02/01/20 10:17 Interval history: chief complaint: Chest pain Date of service 02/01/2020: He feels well today. Wants to go home. No chest pain or shortness of breath . blood sugars are markedly elevated However Review of Systems Constitutional: Constitutional: Reports fatigue Eyes: Eyes: Reports no additional eye complaints ENT: Reports system reviewed and no additional complaints, except as documented Cardiovascular: Cardiovascular: Reports as per HPI Respiratory: Respiratory: Reports no additional respiratory complaints Gastrointestinal: Gastrointestinal: Reports nausea Genitourinary: Genitourinary: Reports no additional male genitourinary complaints Musculoskeletal: Musculoskeletal: Reports no additional musculoskeletal complaints Integumentary/Breasts: Skin/Breast: Reports system reviewed and no additional complaints, except as docu Psychiatric: Psychiatric: Reports no additional psychiatric complaints Endocrine: Endocrine: Reports fatigue Hematologic/Lymphatic: Hematologic/Lymphatic: Reports no additional hematologic/lymphatic complaints Allergic/Immunologic: Allergic/Immunologic: Reports no additional allergic/immunologic complaints Exam Const: General: no acute distress Other: alert and oriented HENMT: Mouth: Yes moist mucous membranes Eyes: Sclera: sclerae normal Pupils: Equal, round and reactive pupils present Neck: Neck: supple Thyroid: thyroid normal Lymphatic: lymphadenopathy Other: Carotid pulses are normal bilaterally in of free of bruits Resp: Effort & Inspection: normal respiratory effort Auscultation: clear to auscultation bilaterally Cardio: Rate: regular rate Rhythm: regular rhythm Other: No audible murmur S4 is evident at the apex GI: Auscultation: normal bowel sounds Skin: General skin exam: normal color Neuro: Cranial nerves: Yes Equal, round and reactive pupils present Cognition (Neuro): normal cognition Extrem: Other: No peripheral edema pulses are diminished below the popliteals bilaterally Objective Data Vital Signs Vital Signs: Vital Signs - 24 hr 01/31/20 11:54 01/31/20 12:00 01/31/20 14:00 Temperature 36.6 C Pulse Rate 53 L 53 L 58 L Respiratory Rate 17 12 Blood Pressure 122/66 131/66 Pulse Oximetry 97 96 01/31/20 17:43 01/31/20 22:00 02/01/20 06:00 Temperature 36.9 C 37.0 C 36.4 C L Pulse Rate 66 61 70 Respiratory Rate 18 20 18 Blood Pressure 141/53 H 152/49 H 148/59 H Pulse Oximetry 96 96 97 02/01/20 07:16 Temperature 37.0 C Pulse Rate 61 Respiratory Rate 20 Blood Pressure 152/49 H Pulse Oximetry Intake/Output Intake/Output: I
[2020-02-01 10:21] LABS: Hematocrit 34.6 % (42.0-52.0); Hemoglobin 11.6 g/dL (14.0-18.0); Mean Corpuscular HGB Conc 33.5 g/dl (32-36); Mean Corpuscular Hemoglobin 29.8 pg (26-34); Mean Corpuscular Volume 88.9 fl (80-100); Mean Platelet Volume 9.1 fl (7.4-10.4); Platelet Count Result 138 k/mm3 (150-375); Red Blood Count 3.89 M/mm3 (4.6-6.20); Red Cell Distribution Width 13.7 % (11.5-14.5); White Blood Count 3.2 K/mm3 (4.5-10.0)
[2020-02-01 10:45] LABS: Glucose Point of Care > 500 (65-105)
[2020-02-01 10:54] LABS: Blood Urea Nitrogen 60 mg/dL (9-20); Calcium 8.2 mg/dL (8.4-10.2); Carbon Dioxide 25 mmol/L (22-30); Chloride 91 mmol/L (98-107); Estimated CRCL calculation 24 ml/min; Estimated Glomerular Filt Rate 14; Glucose 589 mg/dL (75-110); Magnesium 2.4 mg/dL (1.6-2.3); Potassium 3.8 mmol/L (3.4-5.0); Sodium 127 mmol/L (137-145)
[2020-02-01] MEDS: INSULIN ASPART (*BKC) 100 UNITS/ML 10 UNITS SUB-Q (11:17)
[2020-02-01 12:47] LABS: Glucose Point of Care > 500 (65-105)
[2020-02-01 14:00] VITALS: BP 165/61; PULSE 62; RESP 18; TEMP 36.6; O2SAT 100
--- NOTE | 2020-02-01 14:20 | PM.IMPN ---
Progress Note: A&P Assessment and Plan (1) DKA (diabetic ketoacidoses): Qualifiers: Diabetes mellitus complication detail: without coma Diabetes mellitus type: type 1 Qualified Code(s): E10.10 - Type 1 diabetes mellitus with ketoacidosis without coma Code(s): E11.10 - Type 2 diabetes mellitus with ketoacidosis without coma Status: Acute Assessment and Plan: Patient has been admitted to the ICU for an insulin drip. Serial BMPs have been ordered per protocol. Will advance the patient's diet to his sugar free clears. Patient's insulin pump has been removed. 02/01/20 14:20 patient is a 49-year-old male with history of type 1 diabetes end-stage renal disease on peritoneal dialysis history of coronary artery disease status post stent and angioplasty patient presented emergency department with a complaint of left-sided chest pain for 3 hours prior to coming to emergency department he was also found to have blood sugar of 600 and in DKA, patient was transferred to ICU on insulin drip was was gently hydrated with consideration of end-stage renal disease on peritoneal dialysis, on morning of 01/30 sugars were trending down discussed with therapist radiation plan is to switch him over to long-acting insulin as his anion gap is closing, patient's insulin pump was not working this may have led to DKA, patient was seen clinical unit educator has placed in on long-acting Lantus and sliding scale, patient also found to have slightly elevated tropes patient was seen by sleeping car porter since the tropes are slightly elevated and flat he does not suspect patient is having myocardial infarction most likely secondary to end-stage renal disease and stress of DKA and patient was moved out of ICU on 01/30, today patient blood sugars are still high in 500s, will continue lantus 40 units daily, with 8 units with each meal and sliding scale, will monitor and plan, is feeling much better denies any chest pain shortness of breath palpitation fever or chills, patient be seen by outpatient therapist, (2) Chest pain: Qualifiers: Chest pain type: unspecified Qualified Code(s): R07.9 - Chest pain, unspecified Code(s): R07.9 - Chest pain, unspecified Status: Acute Assessment and Plan: Serial troponin so far relatively flat. Will continue to trend troponins and monitor on telemetry. (3) End-stage renal disease (ESRD): Code(s): N18.6 - End stage renal disease Status: Acute Assessment and Plan: Patient is on peritoneal dialysis nightly at home. Nephrology has been consulted. Subjective Date/time seen: 02/01/20 14:20 patient is a 49-year-old male with history of type 1 diabetes end-stage renal disease on peritoneal dialysis history of coronary artery disease status post stent and angioplasty patient presented emergency department with a complaint of left-sided chest pain for 3 hours prior to coming to emergency department he was also found to have blood sugar of 600 and in DKA, patient was transferred to ICU on insulin drip was was gently hydrated with consideration of end-stage renal disease on peritoneal dialysis, on morning of 01/30 sugars were trending down discussed with therapist radiation plan is to switch him over to long-acting insulin as his anion gap is closing, patient's insulin pump was not working this may have led to DKA, patient was seen clinical unit educator has placed in on long-acting Lantus and sliding scale, patient also found to have slightly elevated tropes patient was seen by sleeping car porter since the tropes are slightly elevated and flat he does not suspect patient is having myocardial infarction most likely secondary to end-stage renal disease and stress of DKA and patient was moved out of ICU on 01/30, today patient blood sugars are still high in 500s, will continue lantus 40 units daily, with 8 units with each meal and sliding scale, will monitor and plan, is feeling much better denies any chest pain shortness of
[2020-02-01 14:23] LABS: Glucose Point of Care 471 (65-105)
[2020-02-01] MEDS: INSULIN ASPART (*BKC) 100 UNITS/ML SUB-Q (17:37)
[2020-02-01 17:49] VITALS: BP 165/61; PULSE 62; RESP 18; TEMP 36.6
[2020-02-01 17:50] LABS: Glucose Point of Care 382 (65-105)
[2020-02-01 19:02] LABS: Glucose Point of Care 427 (65-105)
[2020-02-01 20:56] LABS: Glucose Point of Care 360 (65-105)
[2020-02-01] MEDS: ATORVASTATIN 40 MG TABLET 80 MG PO (21:19)
[2020-02-01] MEDS: TERAZOSIN HCL 1 MG CAPSULE 2 MG PO (21:19)
[2020-02-01 22:00] VITALS: BP 184/69; PULSE 61; RESP 18; TEMP 36.7; O2SAT 97
[2020-02-02] MEDS: hydrALAZINE HCL 50 MG TABLET 100 MG PO ×3 (05:56→21:42)
[2020-02-02 06:00] VITALS: BP 169/76; PULSE 67; RESP 18; TEMP 36.5; O2SAT 95
--- NOTE | 2020-02-02 06:59 | PC.NURSE ---
CBI clamped as ordered
[2020-02-02 07:19] VITALS: BP 169/76; PULSE 67; RESP 18; TEMP 36.5
[2020-02-02] MEDS: INSULIN ASPART (*BKC) 100 UNITS/ML SUB-Q (08:19)
[2020-02-02] MEDS: INSULIN ASPART (*BKC) 100 UNITS/ML 8 UNITS SUB-Q (08:20)
[2020-02-02] MEDS: INSULIN GLARGINE (*BKC) 100 UNITS/ML 40 UNITS SUB-Q (08:20)
[2020-02-02] MEDS: CLOPIDOGREL BISULFATE 75 MG TABLET PO (08:26)
[2020-02-02] MEDS: ISOSORBIDE MONONITRATE 30 MG TAB.ER.24H PO (08:26)
[2020-02-02] MEDS: ASPIRIN 81 MG CHEWABLE TABLET PO (08:26)
[2020-02-02] MEDS: CLONIDINE HCL 0.1 MG TABLET PO ×2 (08:26→17:29)
[2020-02-02] MEDS: LORATADINE 10 MG TABLET PO (08:27)
[2020-02-02] MEDS: RANOLAZINE 500 MG TAB.ER.12H PO ×2 (08:27→21:41)
[2020-02-02] MEDS: calcitrioL 0.25 MCG CAPSULE PO (08:27)
[2020-02-02] MEDS: EZETIMIBE 10 MG TABLET PO (08:27)
[2020-02-02 08:40] LABS: Glucose Point of Care 404 (65-105)
--- NOTE | 2020-02-02 09:47 | PM.PNCARD ---
Progress Note: A&P Assessment and Plan (1) Chest pain: Qualifiers: Chest pain type: unspecified Qualified Code(s): R07.9 - Chest pain, unspecified Code(s): R07.9 - Chest pain, unspecified Status: Acute Assessment and Plan: not ACS (2) HTN (hypertension): Code(s): I10 - Essential (primary) hypertension Status: Acute Assessment and Plan: slightly above goal (3) Hyperlipidemia: Code(s): E78.5 - Hyperlipidemia, unspecified Status: Chronic Assessment and Plan: on statin (4) Type 1 diabetes mellitus with hyperglycemia, with long-term current use of insulin: Code(s): E10.65 - Type 1 diabetes mellitus with hyperglycemia Status: Acute Assessment and Plan: blood sugars are still markedly elevated (5) Coronary artery disease: Qualifiers: Coronary Disease-Associated Artery/Lesion type: [place] artery [place] vs. transplanted heart: [place] heart Associated angina: without angina Qualified Code(s): I25.10 - Atherosclerotic heart disease of [place] coronary artery without angina pectoris Code(s): I25.10 - Atherosclerotic heart disease of [place] coronary artery without angina pectoris Status: Acute Assessment and Plan: continue current regimen (6) Lower extremity edema: Code(s): R60.0 - Localized edema Status: Acute Assessment and Plan: worsening edema. Will restart furosemide 80 mg p.o. b.i.d. Subjective Date/time seen: 02/02/20 09:47 Interval history: chief complaint: Chest pain Date of service 02/02/2020: He feels well today. Wants to go home. No chest pain or shortness of breath . EDEma is worsening Review of Systems Constitutional: Constitutional: Reports fatigue Eyes: Eyes: Reports no additional eye complaints ENT: Reports system reviewed and no additional complaints, except as documented Cardiovascular: Cardiovascular: Reports as per HPI Respiratory: Respiratory: Reports no additional respiratory complaints Gastrointestinal: Gastrointestinal: Reports nausea Genitourinary: Genitourinary: Reports no additional male genitourinary complaints Musculoskeletal: Musculoskeletal: Reports no additional musculoskeletal complaints Integumentary/Breasts: Skin/Breast: Reports system reviewed and no additional complaints, except as docu Psychiatric: Psychiatric: Reports no additional psychiatric complaints Endocrine: Endocrine: Reports fatigue Hematologic/Lymphatic: Hematologic/Lymphatic: Reports no additional hematologic/lymphatic complaints Allergic/Immunologic: Allergic/Immunologic: Reports no additional allergic/immunologic complaints Exam Const: General: no acute distress Other: alert and oriented HENMT: Mouth: Yes moist mucous membranes Eyes: Sclera: sclerae normal Pupils: Equal, round and reactive pupils present Neck: Neck: supple Thyroid: thyroid normal Lymphatic: lymphadenopathy Other: Carotid pulses are normal bilaterally in of free of bruits Resp: Effort & Inspection: normal respiratory effort Auscultation: clear to auscultation bilaterally Cardio: Rate: regular rate Rhythm: regular rhythm Other: No audible murmur S4 is evident at the apex GI: Auscultation: normal bowel sounds Skin: General skin exam: normal color Neuro: Cranial nerves: Yes Equal, round and reactive pupils present Cognition (Neuro): normal cognition Extrem: Right lower extremity: edema Left lower extremity: edema Other: No peripheral edema pulses are diminished below the popliteals bilaterally Psych: Appearance: grossly normal Objective Data Vital Signs Vital Signs: Vital Signs - 24 hr 02/01/20 14:00 02/01/20 17:49 02/01/20 22:00 Temperature 36.6 C 36.6 C 36.7 C Pulse Rate 62 62 61 Respiratory Rate 18 18 18 Blood Pressure 165/61 H 165/61 H 184/69 H Pulse Oximetry 100 97 02/02/20 06:00 02/02/20 07:19 Temperature 36.5 C 36.5 C Pulse Rate 67 67 Res
[2020-02-02 10:36] LABS: Glucose Point of Care 422 (65-105)
[2020-02-02] MEDS: FUROSEMIDE 80 MG TABLET PO ×2 (12:24→17:30)
[2020-02-02 14:34] VITALS: BP 179/59; PULSE 68; RESP 16; TEMP 36.7; O2SAT 95
[2020-02-02 14:52] LABS: Glucose Point of Care 318 (65-105)
--- NOTE | 2020-02-02 15:44 | PM.IMPN ---
Progress Note: A&P Assessment and Plan (1) DKA (diabetic ketoacidoses): Qualifiers: Diabetes mellitus type: type 1 Diabetes mellitus complication detail: without coma Qualified Code(s): E10.10 - Type 1 diabetes mellitus with ketoacidosis without coma Code(s): E11.10 - Type 2 diabetes mellitus with ketoacidosis without coma Status: Acute Assessment and Plan: Patient has been admitted to the ICU for an insulin drip. Serial BMPs have been ordered per protocol. Will advance the patient's diet to his sugar free clears. Patient's insulin pump has been removed. 02/02/20 15:44 patient is a 49-year-old male with history of type 1 diabetes end-stage renal disease on peritoneal dialysis history of coronary artery disease status post stent and angioplasty patient presented emergency department with a complaint of left-sided chest pain for 3 hours prior to coming to emergency department he was also found to have blood sugar of 600 and in DKA, patient was transferred to ICU on insulin drip was was gently hydrated with consideration of end-stage renal disease on peritoneal dialysis, on morning of 01/30 sugars were trending down discussed with derrick car operator plan is to switch him over to long-acting insulin as his anion gap is closing, patient's insulin pump was not working this may have led to DKA, patient was seen patient educator has placed in on long-acting Lantus and sliding scale, patient also found to have slightly elevated tropes patient was seen by cloth drier since the tropes are slightly elevated and flat he does not suspect patient is having myocardial infarction most likely secondary to end-stage renal disease and stress of DKA and patient was moved out of ICU on 01/30, on 01/31 patient blood sugars were still high in 500s, continued lantus 40 units daily, with 8 units with each meal and sliding scale, today patient blood sugars are trending down his clinically stable will let him use his insulin pump and monitor monitor his blood sugar with sliding scale along with his insulin pump if he remains stable and clinically stable will discharge the patient home tomorrow, is seen by rn hospice for his peritoneal dialysis (2) Chest pain: Qualifiers: Chest pain type: unspecified Qualified Code(s): R07.9 - Chest pain, unspecified Code(s): R07.9 - Chest pain, unspecified Status: Acute Assessment and Plan: Serial troponin so far relatively flat. Will continue to trend troponins and monitor on telemetry. (3) End-stage renal disease (ESRD): Code(s): N18.6 - End stage renal disease Status: Acute Assessment and Plan: Patient is on peritoneal dialysis nightly at home. Nephrology has been consulted. Additional Plan 55 minutes was spent in critical care activities including adjustments in insulin rate and reviewing monitoring of serial labs. This case had a high probability of a clinically significant, sudden, or life threatening deterioration of this patient's condition which required my full and direct attention, intervention and personal management. Subjective Date/time seen: 02/02/20 15:44 patient is a 49-year-old male with history of type 1 diabetes end-stage renal disease on peritoneal dialysis history of coronary artery disease status post stent and angioplasty patient presented emergency department with a complaint of left-sided chest pain for 3 hours prior to coming to emergency department he was also found to have blood sugar of 600 and in DKA, patient was transferred to ICU on insulin drip was was gently hydrated with consideration of end-stage renal disease on peritoneal dialysis, on morning of 01/30 sugars were trending down discussed with derrick car operator plan is to switch him over to long-acting insulin as his anion gap is closing, patient's insulin pump was not working this may have led to DKA, patient was seen patient educator has placed in on long-acting Lantus and sl
[2020-02-02 18:28] LABS: Glucose Point of Care 93 (65-105)
[2020-02-02 19:26] VITALS: BP 179/59; PULSE 68; RESP 16; TEMP 36.7
--- NOTE | 2020-02-02 19:26 | PC.NURSE ---
Provider approved use of patient's own insulin pump today. Patient signed agreement and filled out insulin pump worksheet. RN also checking blood sugar ACHS to cross reference insulin pump. At 1100, patient changed tubing site and tubing set. Blood sugar was 422 at 1100 and patient administered bolus of novalog. At 1200, blood sugar was 316 and patient administered another dose of novolog. At 1400, blood sugar was 260 and another dose of novolog was administered. At 1600 blood sugar was 159 and no dose was given. At 1700, blood sugar was 111. At 1800, blood sugar was 87. Patient was then given dinner tray. At 1900, patients blood sugar was 189 and no dose was administered. RN to collect sheet at 0600 tommorow.
[2020-02-02] MEDS: ATORVASTATIN 40 MG TABLET 80 MG PO (21:41)
[2020-02-02] MEDS: TERAZOSIN HCL 1 MG CAPSULE 2 MG PO (21:42)
[2020-02-02 21:57] LABS: Glucose Point of Care 210 (65-105)
[2020-02-02 22:00] VITALS: BP 150/64; PULSE 60; RESP 20; TEMP 36.5; O2SAT 97
[2020-02-03] MEDS: hydrALAZINE HCL 50 MG TABLET 100 MG PO ×2 (05:57→13:26)
[2020-02-03 06:00] VITALS: BP 150/82; PULSE 72; RESP 18; TEMP 36.8; O2SAT 98
[2020-02-03] MEDS: ASPIRIN 81 MG CHEWABLE TABLET PO (09:09)
[2020-02-03] MEDS: calcitrioL 0.25 MCG CAPSULE PO (09:09)
[2020-02-03] MEDS: CLONIDINE HCL 0.1 MG TABLET PO (09:09)
[2020-02-03] MEDS: CLOPIDOGREL BISULFATE 75 MG TABLET PO (09:09)
[2020-02-03] MEDS: FUROSEMIDE 80 MG TABLET PO (09:10)
[2020-02-03] MEDS: ERGOCALCIFEROL 50,000 UNIT CAPSULE 50000 UNITS PO (09:10)
[2020-02-03] MEDS: EZETIMIBE 10 MG TABLET PO (09:10)
[2020-02-03] MEDS: ISOSORBIDE MONONITRATE 30 MG TAB.ER.24H PO (09:10)
[2020-02-03] MEDS: LORATADINE 10 MG TABLET PO (09:10)
[2020-02-03] MEDS: RANOLAZINE 500 MG TAB.ER.12H PO (09:11)
[2020-02-03 09:15] LABS: Hemoglobin 13.2 g/dL (14.0-18.0); Mean Corpuscular HGB Conc 33.8 g/dl (32-36); Mean Corpuscular Hemoglobin 29.6 pg (26-34); Mean Corpuscular Volume 87.4 fl (80-100); Mean Platelet Volume 9.6 fl (7.4-10.4); Platelet Count Result 172 k/mm3 (150-375); Red Blood Count 4.46 M/mm3 (4.6-6.20); Red Cell Distribution Width 13.5 % (11.5-14.5)
[2020-02-03 09:33] LABS: Albumin Level 3.7 g/dL (3.5-5.1); Blood Urea Nitrogen 45 mg/dL (9-20); Carbon Dioxide 29 mmol/L (22-30); Chloride 97 mmol/L (98-107); Estimated CRCL calculation 30 ml/min; Estimated Glomerular Filt Rate 19; Glucose 165 mg/dL (75-110); Phosphorus 3.5 mg/dL (2.5-4.5); Potassium 3.1 mmol/L (3.4-5.0); Sodium 135 mmol/L (137-145)
--- NOTE | 2020-02-03 11:21 | PM.PNCARD ---
Progress Note: A&P Assessment and Plan (1) Chest pain: Qualifiers: Chest pain type: unspecified Qualified Code(s): R07.9 - Chest pain, unspecified Code(s): R07.9 - Chest pain, unspecified Status: Acute Assessment and Plan: not ACS (2) HTN (hypertension): Code(s): I10 - Essential (primary) hypertension Status: Acute Assessment and Plan: slightly above goal (3) Hyperlipidemia: Code(s): E78.5 - Hyperlipidemia, unspecified Status: Chronic Assessment and Plan: on statin (4) Type 1 diabetes mellitus with hyperglycemia, with long-term current use of insulin: Code(s): E10.65 - Type 1 diabetes mellitus with hyperglycemia Status: Acute Assessment and Plan: blood sugars are still markedly elevated. He adjust his insulin pump. Believes his sugars are elevated due to PD. (5) Coronary artery disease: Qualifiers: Coronary Disease-Associated Artery/Lesion type: [place] artery [place] vs. transplanted heart: [place] heart Associated angina: without angina Qualified Code(s): I25.10 - Atherosclerotic heart disease of [place] coronary artery without angina pectoris Code(s): I25.10 - Atherosclerotic heart disease of [place] coronary artery without angina pectoris Status: Acute Assessment and Plan: Continue current regimen Follows with Dr Ortega [facility]. He is to call to make an appointment (6) Lower extremity edema: Code(s): R60.0 - Localized edema Status: Acute Assessment and Plan: Furosemide 80 mg p.o. b.i.d. with improvement in lower extremity edema Potassium 3.1 this morning. Will give 40 mEq prior to discharge. Additional Plan OK to discharge from a cardiac standpoint. See discharge instructions for follow-up. Plan discussed Dr. Petit 1130 02/03/2020 Subjective Date/time seen: 02/03/20 11:21 Interval history: Follow up for: Chest pain Date of service: 02/03/2020 Subjective: No chest pain, shortness of breath, lightheadedness or palpitations Review of Systems Constitutional: Constitutional: Denies fatigue Eyes: Eyes: Denies blurry vision ENT: Reports Normal hearing present Cardiovascular: Cardiovascular: Denies chest pain, Reports pedal edema and Denies irregular heart rhythm Respiratory: Respiratory: Denies dyspnea Gastrointestinal: Gastrointestinal: Denies abdominal pain, Denies nausea and Denies vomiting Musculoskeletal: Musculoskeletal: Denies no additional musculoskeletal complaints and Denies back pain Neurologic: Reports Normal hearing present Psychiatric: Psychiatric: Denies anxiety Endocrine: Endocrine: Denies fatigue Hematologic/Lymphatic: Hematologic/Lymphatic: Denies easy bleeding Allergic/Immunologic: Allergic/Immunologic: Denies itchy eyes and Denies throat swelling Exam Const: General: cooperative and no acute distress Nutritional Appearance: obese Orientation/consciousness: patient oriented x3 HENMT: Mouth: Yes moist mucous membranes Eyes: Sclera: sclerae normal Pupils: Equal, round and reactive pupils present Neck: Neck: trachea midline and supple Resp: Effort & Inspection: normal respiratory effort and able to speak in complete sentences Auscultation: clear to auscultation bilaterally Cardio: Rate: regular rate Rhythm: regular rhythm Other: No audible murmur S4 is evident at the apex GI: Auscultation: normal bowel sounds Skin: General skin exam: normal color Neuro: Cranial nerves: Yes Equal, round and reactive pupils present Cognition (Neuro): normal cognition Extrem: Right lower extremity: edema Details: pitting and 1+ Left lower extremity: edema Details: pitting and 1+ Psych: Appearance: grossly normal Objective Data Vital S
[2020-02-03] MEDS: POTASSIUM CHLORIDE 20 MEQ PACKET (FOR LIQUID) 40 MEQ PO (13:26)
--- NOTE | 2020-02-03 13:40 | PM.DS ---
DS: Admitting Diagnosis Admitting Diagnosis Admitting Diagnosis: Type 1 diabetes mellitus with ketoacidosis without coma DS: Discharge Diagnosis Discharge Diagnosis (1) DKA (diabetic ketoacidoses): Qualifiers: Diabetes mellitus type: type 1 Diabetes mellitus complication detail: without coma Qualified Code(s): E10.10 - Type 1 diabetes mellitus with ketoacidosis without coma Code(s): E11.10 - Type 2 diabetes mellitus with ketoacidosis without coma Status: Acute Assessment and Plan: Patient has been admitted to the ICU for an insulin drip. Serial BMPs have been ordered per protocol. Will advance the patient's diet to his sugar free clears. Patient's insulin pump has been removed. 02/02/20 15:44 patient is a 49-year-old male with history of type 1 diabetes end-stage renal disease on peritoneal dialysis history of coronary artery disease status post stent and angioplasty patient presented emergency department with a complaint of left-sided chest pain for 3 hours prior to coming to emergency department he was also found to have blood sugar of 600 and in DKA, patient was transferred to ICU on insulin drip was was gently hydrated with consideration of end-stage renal disease on peritoneal dialysis, on morning of 01/30 sugars were trending down discussed with lock setter plan is to switch him over to long-acting insulin as his anion gap is closing, patient's insulin pump was not working this may have led to DKA, patient was seen clinical systems educator has placed in on long-acting Lantus and sliding scale, patient also found to have slightly elevated tropes patient was seen by knurling machine operator since the tropes are slightly elevated and flat he does not suspect patient is having myocardial infarction most likely secondary to end-stage renal disease and stress of DKA and patient was moved out of ICU on 01/30, on 01/31 patient blood sugars were still high in 500s, continued lantus 40 units daily, with 8 units with each meal and sliding scale, today patient blood sugars are trending down his clinically stable will let him use his insulin pump and monitor monitor his blood sugar with sliding scale along with his insulin pump if he remains stable and clinically stable will discharge the patient home tomorrow, is seen by crepe sole scourer for his peritoneal dialysis (2) Chest pain: Qualifiers: Chest pain type: unspecified Qualified Code(s): R07.9 - Chest pain, unspecified Code(s): R07.9 - Chest pain, unspecified Status: Acute Assessment and Plan: Serial troponin so far relatively flat. Will continue to trend troponins and monitor on telemetry. (3) End-stage renal disease (ESRD): Code(s): N18.6 - End stage renal disease Status: Acute Assessment and Plan: Patient is on peritoneal dialysis nightly at home. Nephrology has been consulted. DS: Summary Hospital Course Reason for hospitalization: Narrative: Date of visit 12/25 1300. Juvenal Daigle Jr. is a 49 year old hypertensive white male with chronic renal failure on peritoneal dialysis and type 2 diabetes mellitus with known coronary disease. Patient states that the last 2 days he has awakened commissary superintendent with sharp anterior chest pain nonradiating and no shortness of breath but did have emesis this a.m.. Related in the ER the pain radiated to back. Patient has had known history of atypical chest discomfort and had a cardiac catheterization ended July early August at [facility] revealing that stents were patent. In November of 2018 apparently had 3 stents placed a [facility]. He also relates that he has been on peritoneal dialysis since October of this year and sugars have been running much higher. He was to have his insulin pump adjusted for the increase in sugars but has never had it done with problems of COVID. He has had no fever no chills minimal cough if any. Has sheltered in for the most part other than trips to
[2020-02-03 14:00] VITALS: BP 147/60; PULSE 74; RESP 16; TEMP 36.4; O2SAT 99
== END 2020-02-03 14:45 | disposition home or self-care (01) | DRG 637 ==
LOC: ANHED 23:35 → ANHICU 01-31 03:12 → ANH3MEDSUR 02-03 12:42 → ANHICU 02-06 10:24
PROVIDERS: Admitting Provider Internal Medicine; Emergency Provider Emergency Medicine; PCP Family Medicine; Visit Provider Family Medicine
DX: E10.10 Type 1 diabetes mellitus with ketoacidosis without coma (principal); N18.6 End stage renal disease; I13.2 Hypertensive heart and chronic kidney disease with heart failure and with stage 5 chronic kidney disease, or end stage renal disease; E87.1 Hypo-osmolality and hyponatremia; N25.81 Secondary hyperparathyroidism of renal origin; E10.319 Type 1 diabetes mellitus with unspecified diabetic retinopathy without macular edema; D63.1 Anemia in chronic kidney disease; E10.22 Type 1 diabetes mellitus with diabetic chronic kidney disease; E10.42 Type 1 diabetes mellitus with diabetic polyneuropathy; I50.9 Heart failure, unspecified; Z99.2 Dependence on renal dialysis; R07.9 Chest pain, unspecified; E78.5 Hyperlipidemia, unspecified; I25.10 Atherosclerotic heart disease of native coronary artery without angina pectoris; G47.33 Obstructive sleep apnea (adult) (pediatric); E87.6 Hypokalemia; Z79.4 Long term (current) use of insulin; Z96.41 Presence of insulin pump (external) (internal); Z79.82 Long term (current) use of aspirin; Z79.899 Other long term (current) drug therapy; Z86.718 Personal history of other venous thrombosis and embolism; Z95.5 Presence of coronary angioplasty implant and graft
CPT/HCPCS: 36415; 71046; 80048; 80053; 80069; 83036; 83735; 84484; 85025; 85027; 85610; 85730; 90945; 93005; 96361; 96374; 96375; 97014; 97110; 99291; A9270; G0283; J1815; J2270; J7030; J7120

== ENCOUNTER 2020-03-31 12:19 | Inpatient (IN) | payer MEDICARE, MEDICAID, SELFPAY ==
[2020-03-31] VITALS (10 sets, daily range): BP systolic 106–157; BP diastolic 38–88; PULSE 53–75; RESP 12–20; TEMP 36.3–36.7; O2SAT 95–100; BMI 38.2
--- NOTE | ~2020-03-31 | XR_ITS ---
XR chest 1V portable DATE: 03/31/2020 13:57 INDICATION: Cough. Hyperglycemia. TECHNIQUE: Portable AP chest on 03/31/2020 at 1353 hours COMPARISON: 01/30/2020 AP and lateral chest FINDINGS: Normal heart size. No hilar or mediastinal enlargement. There is mild discoid atelectasis o r scarring in the lateral left lower lung. Otherwise no pulmonary infiltrate or consolidation, pleura l effusion or pulmonary vascular congestion or pneumothorax. IMPRESSION: Mild discoid atelectasis or scarring in the lateral left lower lung; otherwise no active cardiopulmonary disease Reviewed, dictated and finalized at location A. IMPRESSION: Mild discoid atelectasis or scarring in the lateral left lower lung ; otherwise no active cardiopulmonary disease
[2020-03-31 13:03] LABS: Basophils Percent Auto 0.2 % (0.2-1.2); Hematocrit 32.6 % (42.0-52.0); Hemoglobin 10.7 g/dL (14.0-18.0); Immature Granulocyte Absolute 0.03 K/mm3 (0.00-0.031); Immature Granulocyte Percent A 0.5 % (0-0.5); Lymphocytes Absolute Auto 0.64 K/mm3 (0.9-3.2); Lymphocytes Percent Auto 10.1 % (18.3-44.2); Mean Corpuscular HGB Conc 32.8 g/dl (32-36); Mean Corpuscular Hemoglobin 30.1 pg (26-34); Mean Corpuscular Volume 91.8 fl (80-100); Mean Platelet Volume 10.8 fl (7.4-10.4); Monocytes Absolute Auto 0.4 K/mm3 (0.1-0.6); Monocytes Percent Auto 5.5 % (2.6-8.5); Neutrophils Absolute Auto 5.3 K/mm3 (1.3-6.7); Neutrophils Percent Auto 83.7 % (45.5-73.1); Platelet Count Result 208 k/mm3 (150-375); Red Blood Count 3.55 M/mm3 (4.6-6.20); Red Cell Distribution Width 13.9 % (11.5-14.5); White Blood Count 6.4 K/mm3 (4.5-10.0)
--- NOTE | 2020-03-31 13:07 | ECG_ITS ---
Measurements Intervals [place] Rate: 60 P: -81 HI: 180 QRS: -44 QRSD: 127 T: 116 QT: 543 QTc: 545 Interpretive Statements SINUS RHYTHM LEFT AXIS DEVIATION INTRAVENTRICULAR CONDUCTION DELAY POOR R WAVE PROGRESSION, CONSIDER ANTERIOR INFARCT ST-T WAVE ABNORMALITY IN HIGH LATERAL LEADS- CONSIDER ISCHEMIA BASELINE WANDER- I, II, AVR, AVL, AVF, V3, V5-V6 ABNORMAL ECG Electronically Signed On 03-31-2020 13:39:57 CDT by Doc Dorantes D.O.
--- NOTE | 2020-03-31 13:08 | ED.RECABL ---
HPI - Recheck/Abnormal Lab/Rx General Chief Complaint: Recheck/Abnormal Lab/Rx Stated Complaint: HIGH BLOOD SUGAR Time Seen by Provider: 03/31/20 12:48 Source: patient Mode of arrival: ambulatory Limitations: no limitations History of Present Illness HPI narrative: This patient is a 49 year old male with history of IDDM, Hypertension, Chronic renal disease on peritoneal dialysis who presents for evaluation high blood sugar. He has been using an insulin pump for 6 months. Yesterday his blood sugar started running high, and this morning he developed nausea and vomiting. He does not take any other medication for his diabetes other than the pump. He also reports mild cough this morning. He denies diarrhea, fever, chest pain, sob, or abdominal pain. MD complaint: other (high blood sugar) Related Data Home Medications Medication Instructions Recorded Confirmed aspirin 81 mg PO DAILY 06/04/19 03/31/20 calcitriol 0.25 mcg PO QAM 06/04/19 03/31/20 clonidine HCl 0.1 mg PO QAM AND QPM 06/04/19 03/31/20 clopidogrel 75 mg PO DAILY 06/04/19 03/31/20 ergocalciferol (vitamin D2) 50,000 unit PO WEEKLY 06/04/19 03/31/20 [Vitamin D2] hydralazine 100 mg PO Q8H 06/04/19 03/31/20 nitroglycerin 0.4 mg SUBLINGUAL Q5-15M PRN 06/04/19 03/31/20 ezetimibe [Zetia] 10 mg PO DAILY 09/09/19 03/31/20 isosorbide mononitrate 30 mg PO DAILY 09/09/19 03/31/20 metoprolol tartrate 100 mg PO Q12H 09/09/19 03/31/20 ranolazine 500 mg tablet,extended 500 mg PO Q12H 09/24/19 03/31/20 release,12 hr glucagon HCl 1 mg solution for 1 mg SUB-Q Q20M PRN each 09/29/19 03/31/20 injection atorvastatin 80 mg PO HS 10/18/19 03/31/20 cetirizine [All Day Allergy 10 mg PO DAILY 12/26/19 03/31/20 (cetirizine)] colchicine 0.6 mg PO QMWF 12/26/19 03/31/20 febuxostat 40 mg PO DAILY 12/26/19 03/31/20 furosemide 80 mg PO BID 02/02/20 03/31/20 baclofen 10 mg PO Q8H 03/31/20 03/31/20 calcium acetate(phosphat bind) 667 mg PO QID 03/31/20 03/31/20 famotidine 40 mg PO HS 03/31/20 03/31/20 Allergies Allergy/AdvReac Type Severity Reaction Status Date / Time allopurinol Allergy Severe Other Verified 03/31/20 19:26 iohexol Allergy Severe Difficulty Verified 03/31/20 12:23 [From CONTRAST - CT, XRAY] Breathing ticagrelor Allergy Intermediate Rash Verified 03/31/20 12:23 Review of Systems Review of Systems: All systems reviewed & are unremarkable except as noted in HPI and below Constitutional: Constitutional: Denies chills and Denies fever(s) Cardiovascular: Cardiovascular: Denies chest pain Respiratory: Respiratory: Denies cough, Reports dyspnea and Denies wheezing Gastrointestinal: Gastrointestinal: Denies abdominal pain, Denies diarrhea, Reports nausea and Reports vomiting PMFSH Past Medical History Medical History Anemia in chronic kidney disease, on chronic dialysis Anxiety Arthritis Bronchitis CHF (congestive heart failure) Echocardiogram May 2017 EF of 50% with hypokinetic apical, inferior and basal inferior lateral segment, mild enlargement of left atrium Diabetic peripheral neuropathy Diabetic retinopathy Fracture rt leg GERD (gastroesophageal reflux disease) History of coronary artery disease History of DVT (deep vein thrombosis) Behind right knee chronic History of gout Hyperlipidemia Hypertension, essential Myocardial infarction Obstructive sleep apnea With inconsistent CPAP use Paroxysmal atrial fibrillation Secondary hyperparathyroidism of renal origin Type 1 diabetes mellitus Onset around age 13 Type 1 diabetes mellitus with stage 5 chronic kidney disease Social History Social History Social History: Primary care provider: Dr. Aditya Castro Code status: Full code Smoking status: Never smoker Second hand tobacco smoke exposure: Yes Alcohol intake: never Substance use: never Substance use type: reina
[2020-03-31] MEDS: ONDANSETRON INJ 4 MG/2 ML VIAL IV PUSH (13:10)
[2020-03-31 13:11] LABS: Add Urine Microscopic? YES; Appearance Urine Clear (Clear); Bilirubin Urine Negative (Negative); Blood Urine Negative (Negative); Color Urine Straw (Yellow); Glucose Urine UA 3+ mg/dL (Negative); Ketones Urine Trace mg/dL (Negative); Leukocyte Esterase Ur Negative LEU/UL (Negative); Nitrate Urine Negative (Negative); Protein Urine Negative (Negative); Specific Grav Ur 1.016 (1.001-1.035); Urobilinogen Urine Negative mg/dL (<2.0); WBC Urine 0-3 /hpf
[2020-03-31 13:23] LABS: Beta-Hydroxybutyrate/Acetoacetate 3.83 mmol/L (0.02-0.27)
[2020-03-31] MEDS: SODIUM CHLORIDE 0.9% IV 500 ML 999 ML IV CONT (13:25)
[2020-03-31 13:31] LABS: Alanine Aminotransferase 55 U/L (4-50); Albumin Level 3.7 g/dL (3.5-5.1); Alkaline Phosphatase 127 U/L (38-126); Anion Gap 22 mmol/L (8-16); Aspartate Amino Transferase 47 U/L (17-59); Blood Urea Nitrogen 72 mg/dL (9-20); Calcium 7.9 mg/dL (8.4-10.2); Carbon Dioxide 17 mmol/L (22-30); Chloride 81 mmol/L (98-107); Estimated CRCL calculation 19 ml/min; Estimated Glomerular Filt Rate 11; Glucose 1179 mg/dL (75-110); Phosphorus 4.5 mg/dL (2.5-4.5); Potassium 4.7 mmol/L (3.4-5.0); Sodium 120 mmol/L (137-145)
[2020-03-31] MEDS: INSULIN HUMAN REGULAR (*BKC) 100 UNITS/ML 12 UNITS IV PUSH (13:38)
[2020-03-31 13:43] LABS: Alveolar/Arterial O2 Gradient 28.6 mmHg; Base Excess ABG -9.1 mEq/l (+/-2.0); Carboxyhemoglobin 0.4 % THb (0-2.0); Fractional Inspired Oxygen 21 %; HCO3 ABG 16.3 mEq/l (22.0-26.0); Methemoglobin ABG 0.2 %THb (0-1.5); Oxygen Content ABG 14.7 %vol (16.0-22.0); Oxygen Saturation ABG 95.1 % (95.0-100.0); PCO2 ABG 33.4 mmHg (35.0-45.0); PO2 ABG 81.1 mmHg (80.0-100.0); PO2 FiO2 Ratio Arterial Blood 3.86 %; Reduced Hemoglobin 6.4 %THb (0-5.0); Total Hemoglobin 11.2 g/dL (12.0-18.0); pH ABG 7.306 (7.350-7.450)
[2020-03-31 13:44] LABS: Device ROOM AIR; Site Drawn LEFT BRACHIAL
[2020-03-31 14:24] LABS: Lipase 69 U/L (23-300)
[2020-03-31 14:27] LABS: Hemoglobin A1C 9.2 % (<5.7)
[2020-03-31] MEDS: INSULIN HUMAN REGULAR (*BKC) 100 UNITS in SODIUM CHLORIDE 0.9% IV 99 ML 22.4 UNITS IV CONT (14:32)
[2020-03-31 14:35] LABS: Glucose Point of Care > 500 (65-105)
[2020-03-31 14:40] LABS: Anion Gap 22 mmol/L (8-16); Blood Urea Nitrogen 71 mg/dL (9-20); Calcium 7.7 mg/dL (8.4-10.2); Carbon Dioxide 16 mmol/L (22-30); Chloride 82 mmol/L (98-107); Estimated CRCL calculation 19 ml/min; Estimated Glomerular Filt Rate 11; Glucose 1180 mg/dL (75-110); Sodium 120 mmol/L (137-145)
[2020-03-31 15:37] LABS: Glucose Point of Care > 500 (65-105)
[2020-03-31] MEDS: SODIUM CHLORIDE 0.9% IV 1,000 ML 999 ML IV CONT (15:42)
[2020-03-31 16:46] LABS: Glucose Point of Care > 500 (65-105)
[2020-03-31 17:37] LABS: Glucose Point of Care > 500 (65-105)
[2020-03-31 18:19] LABS: Glucose 863 mg/dL (75-110)
[2020-03-31] MEDS: SODIUM CHLORIDE 0.9% IV 1,000 ML 150 ML IV CONT (18:29)
--- NOTE | 2020-03-31 19:25 | ADMGEN ---
This patient, Juvenal Daigle Jr., was admitted to Intensive Care Unit-7 on 03/31/2020 at 1815. Patient/family oriented to hospital policies and general routines including ID bracelet, bed and alarms, visiting hours, pain management, procedures, bathroom and other care routines, personal items, smoking policy, room service/diet, and visiting hours. Valuables list has been completed. Information on how to activate the Rapid Response Team has been discussed. Patient/Family are encouraged to report perceived risks to care and to ask questions if they do not understand what they are told or what they should do.
[2020-03-31 19:33] LABS: Glucose Point of Care > 500 (65-105)
--- NOTE | 2020-03-31 20:05 | PM.IMHP ---
H&P: HPI History of Present Illness Date/Time: 03/31/202004 Chief complaint: Hyperglycemia. Narrative: Juvenal Daigle Jr.Is a 49-year-old male with type 1 diabetes mellitus with history of diabetic ketoacidosis, coronary artery disease, hypertension, obstructive sleep apnea, paroxysmal atrial fibrillation, and end-stage renal disease on peritoneal dialysis presented to the emergency department earlier this afternoon from home for evaluation of hyperglycemia. He has been on insulin pump since the beginning of this year, and this will be his 3rd admission to the hospital for DKA, it is noted that his hemoglobin A1c has been creeping up a little bit each time, and he is now at 9.2% today. Two nights ago he noticed that his glucose was high, and unfortunately he has not been able to get it down despite bolusing himself with insulin. Unfortunately he did not hear his dexcom alarm and thus his glucose continued to increase. Not long after waking this morning he developed nausea and had several episodes of emesis and dry heaves. He also notes polydipsia and polyuria. insulin pump was removed and he was started on an insulin drip after he was found to be in DKA. He reports that his insulin pump site was unremarkable when he removed the pump, and denies that he was out of insulin. At the time my evaluation he is feeling better. He has not vomited since he received an antiemetic on route to the hospital. He also denies fever, chills, sweats, cold and flu symptoms, chest pain, epigastric pain, shortness of breath, hematemesis, diarrhea, and dysuria. Review of Systems Review of Systems: Narrative: Twelve systems were reviewed with pertinent positives and negatives as per HPI. Except as documented, all other systems were reviewed and are negative. [facility] Past Medical History Medical History (Updated 03/31/20 @ 22:37 by Betsey Posada PA-C) Anemia in chronic kidney disease Anxiety Arthritis Bronchitis Congestive heart failure Echocardiogram May 2017 EF of 50% with hypokinetic apical, inferior and basal inferior lateral segment, mild enlargement of left atrium. Coronary artery disease With history of several stents. Followed by [facility]. Deep venous thrombosis Chronic right popliteal DVT. Diabetic peripheral neuropathy Diabetic retinopathy End-stage renal disease on peritoneal dialysis Essential hypertension Fracture Right lower extremity. Gastroesophageal reflux disease Gout Hyperlipidemia Obstructive sleep apnea With inconsistent CPAP use. Paroxysmal atrial fibrillation Secondary hyperparathyroidism of renal origin Type 1 diabetes mellitus Onset around age 13. Surgical History Surgical History (Updated 03/31/20 @ 22:32 by Betsey Posaad PA-C) History of anterior cruciate ligament surgery (~2000) History of appendectomy (~2006) History of arthroscopy of left knee History of bilateral carpal tunnel release Right 05/03/2018. Left 06/02/2018. History of cardiac catheterization :August 2019 demonstrated patent stents with 40% stenosis of 1 vessel with no stents or angioplasty performed per patient report. :November 2018 at [facility] - stent x3. :March 2017 demonstrating mild diffuse coronary disease 80% lesion small sub branch of obtuse marginal 1 and 90% stenosis distal RCA into the origin of the PDA with PTCA and stent to the RPDA/distal RCA performed by Dr. Petit. History of open reduction and internal fixation (ORIF) procedure (~1982) Left lower extremity fracture. Family History Family History Father , in his late 60s Hypertension Dementia Acute myocardial infarction Premature coronary artery disease CHF (congestive heart failure) Mother Hypertension Dementia Daughter Celiac disease Social History Social History (Updated 03/31/20 @ 22:32 by eBtsey Posada PA-C) Social History: Prim
--- NOTE | 2020-03-31 20:46 | PC.NURSE ---
Patient's insulin drip was not titrated from 1900 through 2100 on 03/31/20 due to inability to obtain blood glucose. At 1930 CBG was noted to be too high to read. An order for a stat BMP was placd and that BMP was drawn at 1945. At 1999 lab was called to verify the BMP was received. The BMP was not received by lab. Phlebotomy was called to redraw specimen and did so at 2036. That BMP is being ran at this time. At 2029, patient's CBG remains too high to read by means of glucometer.
[2020-03-31 20:52] LABS: Anion Gap 14 mmol/L (8-16); Blood Urea Nitrogen 75 mg/dL (9-20); Calcium 7.9 mg/dL (8.4-10.2); Carbon Dioxide 24 mmol/L (22-30); Chloride 86 mmol/L (98-107); Estimated CRCL calculation 19 ml/min; Estimated Glomerular Filt Rate 11; Potassium 3.8 mmol/L (3.4-5.0); Sodium 124 mmol/L (137-145)
[2020-03-31] MEDS: INSULIN HUMAN REGULAR (*BKC) 100 UNITS in SODIUM CHLORIDE 0.9% IV 99 ML 18.6 UNITS IV CONT (20:59)
[2020-03-31 21:00] LABS: Glucose 679 mg/dL (75-110)
[2020-03-31 21:44] LABS: Glucose Point of Care > 500 (65-105)
[2020-03-31 22:01] LABS: Glucose Point of Care > 500 (65-105)
[2020-03-31 23:01] LABS: Glucose Point of Care 493 (65-105)
[2020-03-31 23:24] LABS: Anion Gap 14 mmol/L (8-16); Blood Urea Nitrogen 76 mg/dL (9-20); Calcium 7.9 mg/dL (8.4-10.2); Carbon Dioxide 24 mmol/L (22-30); Chloride 91 mmol/L (98-107); Estimated CRCL calculation 19 ml/min; Estimated Glomerular Filt Rate 11; Glucose 494 mg/dL (75-110); Potassium 3.6 mmol/L (3.4-5.0); Sodium 129 mmol/L (137-145)
[2020-03-31 23:58] LABS: Glucose Point of Care 417 (65-105)
[2020-04-01] VITALS (17 sets, daily range): BP systolic 104–155; BP diastolic 42–78; PULSE 52–64; RESP 14–20; TEMP 36.3–36.9; O2SAT 93–100; BMI 38.2
[2020-04-01] MEDS: ATORVASTATIN 40 MG TABLET 80 MG PO ×2 (00:32→20:02)
[2020-04-01 01:01] LABS: Glucose Point of Care 269 (65-105)
[2020-04-01] MEDS: KCL 20 MEQ/D5/0.45% SOD CHL 1,000 ML 100 ML IV CONT (01:09)
[2020-04-01 01:57] LABS: Glucose Point of Care 198 (65-105)
[2020-04-01] MEDS: INSULIN HUMAN REGULAR (*BKC) 100 UNITS in SODIUM CHLORIDE 0.9% IV 99 ML 11 UNITS IV CONT (02:10)
[2020-04-01 02:23] LABS: Anion Gap 12 mmol/L (8-16); Blood Urea Nitrogen 78 mg/dL (9-20); Calcium 8.2 mg/dL (8.4-10.2); Carbon Dioxide 25 mmol/L (22-30); Chloride 95 mmol/L (98-107); Estimated CRCL calculation 19 ml/min; Estimated Glomerular Filt Rate 11; Glucose 188 mg/dL (75-110); Potassium 3.4 mmol/L (3.4-5.0); Sodium 132 mmol/L (137-145)
[2020-04-01 03:01] LABS: Glucose Point of Care 137 (65-105)
[2020-04-01 04:04] LABS: Glucose Point of Care 120 (65-105)
[2020-04-01 06:34] LABS: Glucose Point of Care 235 (65-105)
[2020-04-01 06:51] LABS: Alanine Aminotransferase 49 U/L (4-50); Albumin Level 3.5 g/dL (3.5-5.1); Alkaline Phosphatase 105 U/L (38-126); Anion Gap 14 mmol/L (8-16); Aspartate Amino Transferase 40 U/L (17-59); Bilirubin,Total 0.8 mg/dL (0.2-1.3); Blood Urea Nitrogen 77 mg/dL (9-20); CRP 2.1 mg/dL (<1.0); Calcium 8.2 mg/dL (8.4-10.2); Carbon Dioxide 24 mmol/L (22-30); Chloride 93 mmol/L (98-107); Estimated CRCL calculation 18 ml/min; Estimated Glomerular Filt Rate 10; Glucose 238 mg/dL (75-110); Magnesium 2.1 mg/dL (1.6-2.3); Potassium 3.9 mmol/L (3.4-5.0); Sodium 131 mmol/L (137-145)
[2020-04-01] MEDS: INSULIN ASPART (*BKC) 100 UNITS/ML SUB-Q (07:41)
[2020-04-01 07:47] LABS: Hepatitis B Surface Antigen Negative (Negative)
[2020-04-01 07:53] LABS: HAV RESULT Negative (Negative); Hepatitis B Core IgM Result Negative (Negative)
[2020-04-01 08:05] LABS: Hepatitis C Virus Antibody Negative (Negative)
[2020-04-01 08:08] LABS: Glucose Point of Care 313 (65-105)
[2020-04-01] MEDS: FEBUXOSTAT 40 MG TABLET PO (08:40)
[2020-04-01] MEDS: RANOLAZINE 500 MG TAB.ER.12H PO ×2 (08:43→20:02)
[2020-04-01] MEDS: ISOSORBIDE MONONITRATE 30 MG TAB.ER.24H PO (08:43)
[2020-04-01] MEDS: calcitrioL 0.25 MCG CAPSULE PO (08:43)
[2020-04-01] MEDS: hydrALAZINE HCL 50 MG TABLET 100 MG PO ×2 (08:43→17:07)
[2020-04-01 08:44] LABS: Glucose Point of Care 321 (65-105)
[2020-04-01] MEDS: CALCIUM ACETATE 667 MG TABLET PO ×4 (08:44→20:01)
[2020-04-01] MEDS: CLOPIDOGREL BISULFATE 75 MG TABLET PO (08:44)
[2020-04-01] MEDS: LORATADINE 10 MG TABLET PO (08:44)
[2020-04-01] MEDS: ASPIRIN 81 MG CHEWABLE TABLET PO (08:44)
[2020-04-01] MEDS: COLCHICINE 0.6 MG TABLET PO (08:44)
[2020-04-01] MEDS: FUROSEMIDE 80 MG TABLET PO ×2 (08:44→17:07)
[2020-04-01] MEDS: EZETIMIBE 10 MG TABLET PO (08:44)
--- NOTE | 2020-04-01 09:00 | PC.NURSE ---
Per Dr. Mi, Patient is to bolus self with pump for meals as well as receive sliding scale insulin from nurse based on mealtime blood sugars.Patient bolused himself 8.57 units with breakfast and also received 6 units of sliding scale from this RN.
--- NOTE | 2020-04-01 11:03 | PM.CNNEP ---
Assessment and Plan Assessment and plan (1) End-stage renal disease (ESRD): Code(s): N18.6 - End stage renal disease Status: Acute (2) DKA (diabetic ketoacidosis): Code(s): E11.10 - Type 2 diabetes mellitus with ketoacidosis without coma Status: Acute (3) Hyponatremia: Code(s): E87.1 - Hypo-osmolality and hyponatremia Status: Acute (4) Elevated LFTs: Code(s): R79.89 - Other specified abnormal findings of blood chemistry Status: Acute (5) Essential hypertension: Code(s): I10 - Essential (primary) hypertension Status: Acute (6) Anemia: Code(s): D64.9 - Anemia, unspecified Status: Acute Assessment and Plan: . Additional Plan Juvenal has end-stage renal disease on peritoneal dialysis. He did not receive peritoneal dialysis yesterday evening due to his issues with hyperglycemia and the necessity of an insulin drip. He has since now been weaned off the insulin drip and is back on his insulin pump with relative stability in his blood sugars and with clinical improvement in his symptoms that led to his presentation to the emergency room. I will reinstitute his peritoneal dialysis using 2.5% Dianeal in effort to try to maintain stability his blood sugars as well as provide clearance and optimization of his electrolytes at this time. It should be noted that because of an increase in fluid weight, he was using higher concentrations of peritoneal dialysis fluid which may have been a contributing factor to his hyperglycemia and possibly his diabetic ketoacidosis. He otherwise appears to be clinically improving with all the conservative/ supportive therapy has been instituted and as mentioned, we will reduce to peritoneal dialysis this evening to maintain his dialysis regiment Emend provide clearance/ fluid removal, clearance that he did not receive yesterday since did not receive his peritoneal dialysis treatment. I will continue follow the patient with you while remains hospitalized and make further recommendations during his hospital course. Thank you for allowing me to participate in care of this patient. History of Present Illness Reason for Consult Consult date: 04/01/20 Reason for consult: end stage renal disease Chief Complaint Chief complaint: Hyperglycemia. History of Present Illness Narrative: The patient is a 49-year-old male with a past medical history as outlined below who presented to [facility] ER yesterday afternoon for evaluation of hyperglycemia. About 2 days ago, he noted his home blood sugar readings required elevated. Despite given him boluses of insulin via his insulin pump, his blood sugar did not seem to improve. Apparently, his blood sugar continued to climb any did not hear his insulin pump alarming to alert him of this issue. He subsequently woke up on the morning of admission with nausea and several episodes of vomiting associated with dry heaves. It was at that time they noted that his blood sugars were running extremely elevated and presented to the emergency room for further evaluation. Workup and evaluation in the emergency room demonstrated the patient have severe hyperglycemia and other laboratory findings consistent with diabetic ketoacidosis. His other routine labs were consistent with his known history of end-stage renal disease. He was subsequently started on insulin drip and transferred to the intensive care unit for further evaluation and therapy. It should be noted that this will be his 3rd [facility] for hyperglycemia and associated diabetic ketoacidosis. Since admission, his blood sugars have improved and he is being weaned off the insulin drip with reinstitution of his insulin pump. He otherwise appears to be doing significantly better at the time of my visit and has had no further episodes of nausea or vomiting since his admission. He otherwise gave no other systemi
--- NOTE | 2020-04-01 11:28 | WPDCNINT ---
Assessment and Plan Assessment and plan (1) DKA (diabetic ketoacidoses): Qualifiers: Diabetes mellitus type: type 1 Diabetes mellitus complication detail: without coma Qualified Code(s): E10.10 - Type 1 diabetes mellitus with ketoacidosis without coma Code(s): E11.10 - Type 2 diabetes mellitus with ketoacidosis without coma Status: Acute Assessment and Plan: IV fluid bolus on presentation and infusion patient was started on insulin infusion on admission Anion gap has closed now patient was transitioned back to subcutaneous insulin. Since patient is on insulin pump and fairly well-versed with its use, we will resume his insulin pump for basal insulin. Patient will administer bolus as per his calorie intake with meals. To supplement that will add sliding scale which will be administered by nurse as per his blood sugars. Further insulin doses can be adjusted depending on his blood sugars on this regimen (2) Essential hypertension: Code(s): I10 - Essential (primary) hypertension Status: Acute Assessment and Plan: patient on p.o. hydralazine and metoprolol patient is not on clonidine at home hence was discontinued (3) Coronary artery disease: Code(s): I25.10 - Atherosclerotic heart disease of [place] coronary artery without angina pectoris Status: Acute Assessment and Plan: continue aspirin statin and beta-umair (4) Congestive heart failure: Code(s): I50.9 - Heart failure, unspecified Status: Acute Assessment and Plan: satting well on room air (5) End-stage renal disease on peritoneal dialysis: Code(s): N18.6 - End stage renal disease; Z99.2 - Dependence on renal dialysis Status: Acute Assessment and Plan: patient seen by Nephrology peritoneal dialysis as per nephrology also on Lasix p.o. (6) Obstructive sleep apnea: Code(s): G47.33 - Obstructive sleep apnea (adult) (pediatric) Status: Acute Assessment and Plan: using home CPAP machine Additional Plan DVT prophylaxis - SCDs while in bed. subcu heparin Nutrition - diabetic diet Code Status - Full Code Transfer out of ICU today Home Office Claim Specialist Consult Note Consult date: 04/01/20 Time Seen: 09:30 HPI: Juvenal Rodriguez Samdre is a 49 year old male with past medical history of type 1 diabetes mellitus with history of diabetic ketoacidosis, coronary artery disease, hypertension, obstructive sleep apnea, paroxysmal atrial fibrillation, and end-stage renal disease on peritoneal dialysis presented to the emergency department yesterday for evaluation of hyperglycemia. He has been on insulin pump since October. he has a continuous rate set by his physician which is variable depending on time of the day and he does carb counting to administer insulin bolus with meals. for last 2 days patient has been having high blood sugars and despite giving increased bolus dosing with insulin he was unable to get control of his blood sugar. he was also having polydipsia but was unable to keep any fluid down due to nausea and vomiting. he told me that he thinks his blood sugars were high due to the dialysate he uses for his peritoneal dialysis which has a high sugar concentration which he was using cause of his increased from weight. Apart from that patient did not had any other complaints on presentation or at this time. In ED he was found to be in DKA and was started on IV insulin infusion. he was given a conservative IV fluid bolus due to his history of end-stage renal disease and started on maintenance fluids. Patient was admitted to ICU for further management This morning patient feels better and already had his breakfast and denies any nausea vomiting or any other complaints. Patient denies fever, chest pain, shortness of breath, cough, nausea vomiting, abdominal pain, diarrhea, headache or constipation. Review of Systems Review of Systems: All systems re
[2020-04-01 12:25] LABS: Glucose Point of Care 426 (65-105)
[2020-04-01] MEDS: INSULIN HUMAN REGULAR (*BKC) 100 UNITS/ML 10 UNITS IV PUSH (12:36)
[2020-04-01 14:37] LABS: Glucose Point of Care 399 (65-105)
[2020-04-01] MEDS: INSULIN HUMAN REGULAR (*BKC) 100 UNITS in SODIUM CHLORIDE 0.9% IV 99 ML 6.8 UNITS IV CONT (15:00)
[2020-04-01 16:11] LABS: Glucose Point of Care 395 (65-105)
[2020-04-01 17:11] LABS: Glucose Point of Care 298 (65-105)
--- NOTE | 2020-04-01 17:12 | P.PNIM_ITS ---
Progress Note: A&P Assessment and Plan (1) Diabetic ketoacidosis: Code(s): E11.10 - Type 2 diabetes mellitus with ketoacidosis without coma Status: Acute Assessment and Plan: * With severe hyperglycemia, increased anion gap, and ketones. * Precipitating etiology of such is not clear at this time, but he notes no issues with his insulin pump or lack of insulin. * No history or exam findings to suggest underlying infection. * He was started on insulin drip, and was titrated per DKA protocol. early this a.m. transition back to his insulin pump with sliding scale also (2) Elevated LFTs: Code(s): R79.89 - Other specified abnormal findings of blood chemistry Status: Acute Assessment and Plan: * No tenderness in the abdomen to suggest pathology there. * It is noted that his LFTs had been mildly increased as well with previous episodes of DKA. * For now will continue to monitor and consider further evaluation should there be no improvement. (3) Hyponatremia: Code(s): E87.1 - Hypo-osmolality and hyponatremia Status: Acute Assessment and Plan: * Pseudo hyponatremia, sodium is 137 when corrected for glucose. (4) End-stage renal disease on peritoneal dialysis: Code(s): N18.6 - End stage renal disease; Z99.2 - Dependence on renal dialysis Status: Acute Assessment and Plan: * Dr. Reyes consulted for dialysis ; dialysis held last evening (5) Anemia in chronic kidney disease: Code(s): N18.9 - Chronic kidney disease, unspecified; D63.1 - Anemia in chronic kidney di sease Status: Acute Assessment and Plan: * Hemoglobin his relatively stable on review of previous labs. (6) Congestive heart failure: Code(s): I50.9 - Heart failure, unspecified Status: Acute Assessment and Plan: * He is clinically compensated at this point; . (7) Coronary artery disease: Code(s): I25.10 - Atherosclerotic heart disease of [place] coronary artery without angina pectoris Status: Acute Assessment and Plan: * With history of multiple stents , no acute issues. * Continue dual anti-platelet therapy, statin, and beta-umair. (8) Essential hypertension: Code(s): I10 - Essential (primary) hypertension Status: Acute Assessment and Plan: * Blood pressures were reviewed and they have been stable. * His antihypertensives will be reviewed and resumed as appropriate. Subjective Date/time seen: 04/01/20 17:12 Interval history: date of visit 04/01. 49-year-old hypertensive male with type 2 diabetes, coronary artery disease, and end-stage renal disease on peritoneal dialysis admitted with recurrent DKA. CO2 dee and gap closed through the night and insulin drip was discontinued. feels much better this a.m. Exam Narrative: Exam Narrative: blood pressure 150/60 pulse 60 saturating 94% on room air General: sitting up in bed comfortable HEENT: Pupils reactive. Sclerae anicteric. Neck: Supple. No JVD. Respiratory: Lungs are clear to auscu
--- NOTE | 2020-04-01 17:12 | PM.IMPN ---
Progress Note: A&P Assessment and Plan (1) Diabetic ketoacidosis: Code(s): E11.10 - Type 2 diabetes mellitus with ketoacidosis without coma Status: Acute Assessment and Plan: With severe hyperglycemia, increased anion gap, and ketones. Precipitating etiology of such is not clear at this time, but he notes no issues with his insulin pump or lack of insulin. No history or exam findings to suggest underlying infection. He was started on insulin drip, and was titrated per DKA protocol. early this a.m. transition back to his insulin pump with sliding scale also (2) Elevated LFTs: Code(s): R79.89 - Other specified abnormal findings of blood chemistry Status: Acute Assessment and Plan: No tenderness in the abdomen to suggest pathology there. It is noted that his LFTs had been mildly increased as well with previous episodes of DKA. For now will continue to monitor and consider further evaluation should there be no improvement. (3) Hyponatremia: Code(s): E87.1 - Hypo-osmolality and hyponatremia Status: Acute Assessment and Plan: Pseudo hyponatremia, sodium is 137 when corrected for glucose. (4) End-stage renal disease on peritoneal dialysis: Code(s): N18.6 - End stage renal disease; Z99.2 - Dependence on renal dialysis Status: Acute Assessment and Plan: Dr. Reyes consulted for dialysis ; dialysis held last evening (5) Anemia in chronic kidney disease: Code(s): N18.9 - Chronic kidney disease, unspecified; D63.1 - Anemia in chronic kidney disease Status: Acute Assessment and Plan: Hemoglobin his relatively stable on review of previous labs. (6) Congestive heart failure: Code(s): I50.9 - Heart failure, unspecified Status: Acute Assessment and Plan: He is clinically compensated at this point; . (7) Coronary artery disease: Code(s): I25.10 - Atherosclerotic heart disease of [place] coronary artery without angina pectoris Status: Acute Assessment and Plan: With history of multiple stents , no acute issues. Continue dual anti-platelet therapy, statin, and beta-umair. (8) Essential hypertension: Code(s): I10 - Essential (primary) hypertension Status: Acute Assessment and Plan: Blood pressures were reviewed and they have been stable. His antihypertensives will be reviewed and resumed as appropriate. Subjective Date/time seen: 04/01/20 17:12 Interval history: date of visit 04/01. 49-year-old hypertensive male with type 2 diabetes, coronary artery disease, and end-stage renal disease on peritoneal dialysis admitted with recurrent DKA. CO2 dee and gap closed through the night and insulin drip was discontinued. feels much better this a.m. Exam Narrative: Exam Narrative: blood pressure 150/60 pulse 60 saturating 94% on room air General: sitting up in bed comfortable HEENT: Pupils reactive. Sclerae anicteric. Neck: Supple. No JVD. Respiratory: Lungs are clear to auscultation bilaterally. No increased work of breathing. Speaking in full sentences. Cardiovascular: Regular rate and rhythm with S1-S2. No murmur, rub, or gallop. Gastrointestinal: Abdomen is soft, nontender, and nondistended with positive bowel sounds. PD catheter in left lower quadrant. Skin: Warm and dry. No rash or lesions on limited exam. Extremities: No edema. Radial pulses 2+, pedal pulses 1+ bilaterally. Neurological: Al
[2020-04-01 18:15] LABS: Glucose Point of Care 289 (65-105)
[2020-04-01 19:11] LABS: Glucose Point of Care 283 (65-105)
[2020-04-01 19:57] LABS: Glucose Point of Care 267 (65-105)
[2020-04-01] MEDS: FAMOTIDINE 20 MG TABLET 40 MG PO (20:02)
[2020-04-01] MEDS: HEPARIN SODIUM 5,000 UNITS/ML VIAL 5000 UNITS SUB-Q (20:03)
[2020-04-01 20:58] LABS: Glucose Point of Care 249 (65-105)
[2020-04-01 21:57] LABS: Glucose Point of Care 163 (65-105)
[2020-04-01] MEDS: INSULIN HUMAN REGULAR (*BKC) 100 UNITS in SODIUM CHLORIDE 0.9% IV 99 ML 8.3 UNITS IV CONT (22:39)
[2020-04-01 23:02] LABS: Glucose Point of Care 172 (65-105)
[2020-04-02] VITALS (11 sets, daily range): BP systolic 123–163; BP diastolic 59–85; PULSE 56–68; RESP 14–20; TEMP 36.5–37.1; O2SAT 94–98
[2020-04-02 00:06] LABS: Glucose Point of Care 169 (65-105)
[2020-04-02 01:04] LABS: Glucose Point of Care 132 (65-105)
[2020-04-02 02:07] LABS: Glucose Point of Care 110 (65-105)
[2020-04-02 03:03] LABS: Glucose Point of Care 126 (65-105)
[2020-04-02 04:12] LABS: Glucose Point of Care 120 (65-105)
[2020-04-02 05:01] LABS: Glucose Point of Care 120 (65-105)
[2020-04-02 06:11] LABS: Glucose Point of Care 113 (65-105)
[2020-04-02 06:57] LABS: Glucose Point of Care 117 (65-105)
[2020-04-02 07:20] LABS: Alanine Aminotransferase 41 U/L (4-50); Albumin Level 3.3 g/dL (3.5-5.1); Alkaline Phosphatase 93 U/L (38-126); Anion Gap 9 mmol/L (8-16); Aspartate Amino Transferase 36 U/L (17-59); Bilirubin,Total 0.5 mg/dL (0.2-1.3); Blood Urea Nitrogen 71 mg/dL (9-20); Calcium 8.6 mg/dL (8.4-10.2); Carbon Dioxide 27 mmol/L (22-30); Chloride 99 mmol/L (98-107); Estimated CRCL calculation 21 ml/min; Estimated Glomerular Filt Rate 12; Glucose 114 mg/dL (75-110); Sodium 135 mmol/L (137-145)
[2020-04-02 08:07] LABS: Glucose Point of Care 105 (65-105)
[2020-04-02] MEDS: CALCIUM ACETATE 667 MG TABLET PO ×4 (08:10→20:41)
[2020-04-02] MEDS: POTASSIUM CHLORIDE 20 MEQ TABLET 40 MEQ PO (08:10)
[2020-04-02] MEDS: hydrALAZINE HCL 50 MG TABLET 100 MG PO ×4 (08:11→23:39)
[2020-04-02] MEDS: ASPIRIN 81 MG CHEWABLE TABLET PO (08:12)
[2020-04-02] MEDS: METOPROLOL TARTRATE 50 MG TAB 100 MG PO ×2 (08:12→20:41)
[2020-04-02] MEDS: RANOLAZINE 500 MG TAB.ER.12H PO ×2 (08:12→20:55)
[2020-04-02] MEDS: EZETIMIBE 10 MG TABLET PO (08:13)
[2020-04-02] MEDS: FUROSEMIDE 80 MG TABLET PO ×2 (08:13→18:14)
[2020-04-02] MEDS: CLOPIDOGREL BISULFATE 75 MG TABLET PO (08:13)
[2020-04-02] MEDS: FEBUXOSTAT 40 MG TABLET PO (08:13)
[2020-04-02] MEDS: calcitrioL 0.25 MCG CAPSULE PO (08:13)
[2020-04-02] MEDS: LORATADINE 10 MG TABLET PO (08:14)
[2020-04-02] MEDS: HEPARIN SODIUM 5,000 UNITS/ML VIAL 5000 UNITS SUB-Q ×2 (08:14→20:44)
[2020-04-02] MEDS: ISOSORBIDE MONONITRATE 30 MG TAB.ER.24H PO (08:14)
[2020-04-02] MEDS: INSULIN GLARGINE (*BKC) 100 UNITS/ML 60 UNITS SUB-Q (08:16)
[2020-04-02] MEDS: INSULIN ASPART (*BKC) 100 UNITS/ML 10 UNITS SUB-Q ×3 (08:24→18:15)
--- NOTE | 2020-04-02 09:00 | WPDINTPN ---
Progress Note: A&P Assessment and Plan (1) DKA (diabetic ketoacidoses): Qualifiers: Diabetes mellitus type: type 1 Diabetes mellitus complication detail: without coma Qualified Code(s): E10.10 - Type 1 diabetes mellitus with ketoacidosis without coma Code(s): E11.10 - Type 2 diabetes mellitus with ketoacidosis without coma Status: Acute Assessment and Plan: patient was admitted with DKA and on presentation was given IV fluid bolus on presentation and infusion. patient was also started on on insulin infusion. 04/01- anion gap closed and patient was transitioned back to his insulin pump with supplemental sliding scale. Despite that his blood sugars remained in high 300s to 400. After discussion with the patient it appeared the patient's basal rate on insulin pump which was variable depending on the time of the day was inadequate for his needs. 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 Patient was restarted on insulin infusion to get control of his blood sugars which have improved this morning and patient is on close to 4.5 units of insulin per our. I will transition patient to subcutaneous insulin today Lantus 60 units subcu q.day 10 units of short-acting insulin with meals Sliding scale insulin for supplementation depending on his blood sugars. I will further adjust his insulin depending on his blood sugar levels on this regimen. I spoke to patient and he is agreeable with the plan of going home on basal bolus insulin regimen and then following up with his endocrinology clinic for resumption of insulin pump with newer and higher insulin rate (2) Essential hypertension: Code(s): I10 - Essential (primary) hypertension Status: Acute Assessment and Plan: patient on p.o. hydralazine and metoprolol patient is not on clonidine at home hence was discontinued (3) Coronary artery disease: Code(s): I25.10 - Atherosclerotic heart disease of [place] coronary artery without angina pectoris Status: Acute Assessment and Plan: continue aspirin statin, ranexa and beta-umair (4) Congestive heart failure: Code(s): I50.9 - Heart failure, unspecified Status: Acute Assessment and Plan: satting well on room air (5) End-stage renal disease on peritoneal dialysis: Code(s): N18.6 - End stage renal disease; Z99.2 - Dependence on renal dialysis Status: Acute Assessment and Plan: patient seen by Nephrology peritoneal dialysis as per nephrology also on Lasix p.o. (6) Obstructive sleep apnea: Code(s): G47.33 - Obstructive sleep apnea (adult) (pediatric) Status: Acute Assessment and Plan: using home CPAP machine (7) Hypokalemia: Code(s): E87.6 - Hypokalemia Status: Acute Assessment and Plan: Replace potassium with p.o. and IV Additional Plan DVT prophylaxis - SCDs while in bed. subcu heparin Nutrition - diabetic diet Code Status - Full Code Transfer out of ICU today Subjective Date/time seen: 04/02/20 0900 yesterday patient was transitioned off of insulin drip and switched back to his insulin pump along with sliding scale but his sugars remained very high close to 400 and patient was resumed on insulin infusion. he otherwise feels better and does not have any complaints. He completed his peritoneal dialysis overnight without any issue. He believes there was a problem with insertion of insulin pump and the tubing was kinked at the insertion. Insulin pump is off at this point Patient denies fever, chest pain, shortness of breath, cough, nausea vomiting, abdominal pain, diarrhea, headache or constipation. Review of Systems Review of Systems: All systems reviewed & are unremarkable except as not
[2020-04-02 12:47] LABS: Glucose Point of Care 219 (65-105)
[2020-04-02] MEDS: INSULIN ASPART (*BKC) 100 UNITS/ML SUB-Q ×2 (12:49→18:15)
--- NOTE | 2020-04-02 13:28 | PM.PNNEP ---
Progress Note: A&P Assessment and Plan (1) End-stage renal disease (ESRD): Code(s): N18.6 - End stage renal disease Status: Acute Assessment and Plan: continue nightly CCPD follow electrolytes, and clearance (2) DKA (diabetic ketoacidosis): Code(s): E11.10 - Type 2 diabetes mellitus with ketoacidosis without coma Status: Acute Assessment and Plan: resolved off insuling gtt back on insulin pump (3) Hyponatremia: Code(s): E87.1 - Hypo-osmolality and hyponatremia Status: Acute Assessment and Plan: pseudohyponatremia secondary to hyperglycemia sodium has normalized (4) Essential hypertension: Code(s): I10 - Essential (primary) hypertension Status: Acute Assessment and Plan: BP under reasonable [id number] follow trend of hemodynamics (5) Anemia: Code(s): D64.9 - Anemia, unspecified Status: Acute Assessment and Plan: H/H reasonable at this time dose with Epogen while hospitalized follow trend of H/H Will continue to follow. Subjective Date/time seen: 04/02/20 13:28 Tolerated peritoneal dialysis treatment yesterday evening/overnight without issues; blood sugars appears to be improving as well; off inulin gtt; transferred to floor this afternoon Exam Narrative: Exam Narrative: General: WD/WN male/female in NAD Heart: normal S1 and S2; no rub Lungs: clear to auscultation Abdomen: soft, nontender, nondistended, positive bowel sounds Extremities: no cyanosis or clubbing; trace edema Skin: warm and dry Objective Data Vital Signs Vital Signs: Vital Signs Temp Pulse Resp BP Pulse Ox 04/02/20 14:00 37.0 C 59 L 18 144/62 H 96 04/02/20 12:00 36.9 C 68 16 138/85 98 04/02/20 10:00 65 16 123/59 L 98 04/02/20 08:12 67 04/02/20 08:00 36.8 C 68 16 163/72 H 96 04/02/20 06:00 67 14 130/74 97 04/02/20 04:00 36.6 C 63 15 162/66 H 96 04/02/20 02:00 66 15 142/73 H 94 04/02/20 00:00 36.5 C 59 L 14 152/65 H 96 04/01/20 22:00 60 18 155/68 H 97 04/01/20 21:58 36.6 C 59 L 18 150/62 H 100 04/01/20 21:57 36.6 C 59 L 18 150/62 H 100 04/01/20 20:01 59 L 04/01/20 20:00 36.6 C 60 18 150/62 H 96 Intake/Output Intake/Output: Intake & Output 03/30/20 03/31/20 04/01/20 04/02/20 23:59 23:59 23:59 23:59 Intake Total 1600 3100 1050 Output Total 2175 2081 Balance 1600 925 -1031 Meds/Results Medications: Active Medications Generic Name Dose Route Start Last Admin Trade Name Freq PRN Reason Stop Dose Admin Aspirin 81 mg 04/01/20 09:00 04/02/20 08:12 Aspirin Chewable PO 81 mg DAILY ASHLEY Administration Atorvastatin Calcium 80 mg 03/31/20 22:50 04/01/20 20:02 Lipitor PO 80 mg HS ASHLEY Administration Calcitriol 0.25 mcg 04/01/20 09:00 04/02/20 08:13 Rocaltrol PO 0.25 mcg QAM ASHLEY Administration Calcium Acetate 667 mg 04/01/20 08:00 04/02/20 12:13 Phoslo PO 667 mg 0800,1200,1700,2100 ASHLEY Administration Clopidogrel Bisulfate 75 mg 04/01/20 09:00 04/02/20 08:13 Plavix PO 75 mg DAILY ASHLEY Administration Colchicine 0.6 mg 04/01/20 09:00 04/01/20 08:44 Colchicine Po PO 0.6 mg [email or web address] ASHLEY Administration Dextrose 12.5 gm 04/02/20 07:50 Dextrose 50% Syringe IV PUSH PRN PRN Hypoglycemia Protocol Ezetimibe 10 mg 04/01/20 09:00 04/02/20 08:13 Zetia PO 10 mg DAILY ASHLEY Administration Famotidine 40 mg 04/01/20 21:00 04/01/20 20:02 Pepcid PO 40 mg HS ASHLEY Administration Febuxostat 40 mg 04/01/20 09:00 04/02/20 08:13 Uloric PO 05/01/20 09:01 40 mg DAILY ASHLEY Administration Furosemide 80 mg 04/01/20 09:00 04/02/20 08:13 Lasix Tablet PO 80 mg BID ASHLEY Administration Glucagon 1 mg 04/02/20 07:50 Glucagon For Inj IM PRN PRN Hypoglycemia Protocol Glucose 15 gm 04/02/20 07:50 Glu
--- NOTE | 2020-04-02 13:58 | PC.NURSE ---
This patient, Juvenal Daigle Jr., was transferred to [[id number]] on 04/02/20 at 1350 via wheelchair. Personal belongings sent with patient. Report given to [Deion ROLAND]. Appropriate documentation sent with patient.
[2020-04-02 17:08] LABS: Glucose Point of Care 292 (65-105)
--- NOTE | 2020-04-02 17:24 | P.PNIM_ITS ---
Progress Note: A&P Assessment and Plan (1) Diabetic ketoacidosis: Code(s): E11.10 - Type 2 diabetes mellitus with ketoacidosis without coma Status: Acute Assessment and Plan: * With severe hyperglycemia, increased anion gap, and ketones. * Precipitating etiology of such is not clear at this time, but he notes no issues with his insulin pump or lack of insulin. * No history or exam findings to suggest underlying infection. * He was started on insulin drip, and was titrated per DKA protocol. early a.m /. transition back to his insulin pump with sliding scale but with rising BS was placed back on drip and transitioned to lantus with novolog this am , will follow-up with biological engineer to assess pump further (2) Elevated LFTs: Code(s): R79.89 - Other specified abnormal findings of blood chemistry Status: Acute Assessment and Plan: * No tenderness in the abdomen to suggest pathology there. * It is noted that his LFTs had been mildly increased as well with previous episodes of DKA. * LFTs all normal today (3) Hyponatremia: Code(s): E87.1 - Hypo-osmolality and hyponatremia Status: Acute Assessment and Plan: * Pseudo hyponatremia, sodium is 137 when corrected for glucose. (4) End-stage renal disease on peritoneal dialysis: Code(s): N18.6 - End stage renal disease; Z99.2 - Dependence on renal dialysis Status: Acute Assessment and Plan: * Dr. Reyes consulted for dialysis ; dialysis each eveing (5) Anemia in chronic kidney disease: Code(s): N18.9 - Chronic kidney disease, unspecified; D63.1 - Anemia in chronic kidney disease Status: Acute Assessment and Plan: * Hemoglobin his relatively stable on review of previous labs. (6) Congestive heart failure: Code(s): I50.9 - Heart failure, unspecified Status: Acute Assessment and Plan: * He is clinically compensated at this point; . (7) Coronary artery disease: Code(s): I25.10 - Atherosclerotic heart disease of [place] coronary artery without angina pectoris Status: Acute Assessment and Plan: * With history of multiple stents , no acute issues. * Continue dual anti-platelet therapy, statin, and beta-umair. (8) Essential hypertension: Code(s): I10 - Essential (primary) hypertension Status: Acute Assessment and Plan: * Blood pressures were reviewed and they have been stable. * His antihypertensives will be reviewed and resumed as appropriate. Subjective Date/time seen: 04/02/20 17:24 Interval history: date of visit 04/02. 49-year-old hypertensive male with type 2 diabetes, coronary artery disease, and end-stage renal disease on peritoneal dialysis admitted with recurrent DKA. CO2 dee and gap closed through the night and insulin drip was discontinued again this am. No further nausea Exam Narrative: Exam Narrative: blood pressure 144/62 pulse 60 saturating 96% on room air General: sitting up in bed comfortable HEENT: Pupils reactive. Sclerae anict
--- NOTE | 2020-04-02 17:24 | PM.IMPN ---
Progress Note: A&P Assessment and Plan (1) Diabetic ketoacidosis: Code(s): E11.10 - Type 2 diabetes mellitus with ketoacidosis without coma Status: Acute Assessment and Plan: With severe hyperglycemia, increased anion gap, and ketones. Precipitating etiology of such is not clear at this time, but he notes no issues with his insulin pump or lack of insulin. No history or exam findings to suggest underlying infection. He was started on insulin drip, and was titrated per DKA protocol. early a.m /. transition back to his insulin pump with sliding scale but with rising BS was placed back on drip and transitioned to lantus with novolog this am , will follow-up with transport coordinator to assess pump further (2) Elevated LFTs: Code(s): R79.89 - Other specified abnormal findings of blood chemistry Status: Acute Assessment and Plan: No tenderness in the abdomen to suggest pathology there. It is noted that his LFTs had been mildly increased as well with previous episodes of DKA. LFTs all normal today (3) Hyponatremia: Code(s): E87.1 - Hypo-osmolality and hyponatremia Status: Acute Assessment and Plan: Pseudo hyponatremia, sodium is 137 when corrected for glucose. (4) End-stage renal disease on peritoneal dialysis: Code(s): N18.6 - End stage renal disease; Z99.2 - Dependence on renal dialysis Status: Acute Assessment and Plan: Dr. Reyes consulted for dialysis ; dialysis each eveing (5) Anemia in chronic kidney disease: Code(s): N18.9 - Chronic kidney disease, unspecified; D63.1 - Anemia in chronic kidney disease Status: Acute Assessment and Plan: Hemoglobin his relatively stable on review of previous labs. (6) Congestive heart failure: Code(s): I50.9 - Heart failure, unspecified Status: Acute Assessment and Plan: He is clinically compensated at this point; . (7) Coronary artery disease: Code(s): I25.10 - Atherosclerotic heart disease of [place] coronary artery without angina pectoris Status: Acute Assessment and Plan: With history of multiple stents , no acute issues. Continue dual anti-platelet therapy, statin, and beta-umair. (8) Essential hypertension: Code(s): I10 - Essential (primary) hypertension Status: Acute Assessment and Plan: Blood pressures were reviewed and they have been stable. His antihypertensives will be reviewed and resumed as appropriate. Subjective Date/time seen: 04/02/20 17:24 Interval history: date of visit 04/02. 49-year-old hypertensive male with type 2 diabetes, coronary artery disease, and end-stage renal disease on peritoneal dialysis admitted with recurrent DKA. CO2 dee and gap closed through the night and insulin drip was discontinued again this am. No further nausea Exam Narrative: Exam Narrative: blood pressure 144/62 pulse 60 saturating 96% on room air General: sitting up in bed comfortable HEENT: Pupils reactive. Sclerae anicteric. Neck: Supple. No JVD. Respiratory: Lungs are clear to auscultation bilaterally. No increased work of breathing. . Cardiovascular: Regular rate and rhythm with S1-S2. No murmur, rub, or gallop. Gastrointestinal: Abdomen is soft, nontender, and nondistended with positive bowel sounds. PD catheter in left lower quadrant. Skin: Warm and dry. No rash or lesions on limited exam. Extremities: No edema. Radial pulses 2+
[2020-04-02] MEDS: ATORVASTATIN 40 MG TABLET 80 MG PO (20:41)
[2020-04-02] MEDS: FAMOTIDINE 20 MG TABLET 40 MG PO (20:41)
[2020-04-02 21:25] LABS: Glucose Point of Care 305 (65-105)
[2020-04-03] VITALS (7 sets, daily range): BP systolic 139–171; BP diastolic 66–75; PULSE 61–68; RESP 18–20; TEMP 35.9–36.8; O2SAT 95–98
[2020-04-03 06:26] LABS: Potassium 3.9 mmol/L (3.4-5.0)
[2020-04-03 06:35] LABS: Anion Gap 10 mmol/L (8-16); Blood Urea Nitrogen 61 mg/dL (9-20); Calcium 8.4 mg/dL (8.4-10.2); Carbon Dioxide 27 mmol/L (22-30); Chloride 96 mmol/L (98-107); Estimated CRCL calculation 23 ml/min; Estimated Glomerular Filt Rate 14; Glucose 428 mg/dL (75-110); Sodium 133 mmol/L (137-145)
--- NOTE | 2020-04-03 08:50 | PC.NURSE ---
patient disconnected self from PD. Patient informed at 0841 that Lorne from dialysis would not be here until .
[2020-04-03] MEDS: INSULIN ASPART (*BKC) 100 UNITS/ML 15 UNITS SUB-Q ×4 (08:51→17:32)
[2020-04-03] MEDS: INSULIN GLARGINE (*BKC) 100 UNITS/ML 70 UNITS SUB-Q (08:53)
[2020-04-03] MEDS: CALCIUM ACETATE 667 MG TABLET PO ×4 (09:03→20:53)
[2020-04-03] MEDS: METOPROLOL TARTRATE 50 MG TAB 100 MG PO ×2 (09:03→20:52)
[2020-04-03] MEDS: hydrALAZINE HCL 50 MG TABLET 100 MG PO ×3 (09:03→23:43)
[2020-04-03] MEDS: RANOLAZINE 500 MG TAB.ER.12H PO ×2 (09:04→20:53)
[2020-04-03] MEDS: ASPIRIN 81 MG CHEWABLE TABLET PO (09:04)
[2020-04-03] MEDS: CLOPIDOGREL BISULFATE 75 MG TABLET PO (09:04)
[2020-04-03] MEDS: COLCHICINE 0.6 MG TABLET PO (09:04)
[2020-04-03] MEDS: calcitrioL 0.25 MCG CAPSULE PO (09:04)
[2020-04-03] MEDS: EZETIMIBE 10 MG TABLET PO (09:04)
[2020-04-03] MEDS: ISOSORBIDE MONONITRATE 30 MG TAB.ER.24H PO (09:05)
[2020-04-03] MEDS: HEPARIN SODIUM 5,000 UNITS/ML VIAL 5000 UNITS SUB-Q (09:05)
[2020-04-03] MEDS: LORATADINE 10 MG TABLET PO (09:05)
[2020-04-03] MEDS: FUROSEMIDE 80 MG TABLET PO ×2 (09:05→16:43)
[2020-04-03] MEDS: FEBUXOSTAT 40 MG TABLET PO (09:06)
[2020-04-03 09:44] LABS: Glucose Point of Care 498 (65-105)
[2020-04-03 12:13] LABS: Glucose Point of Care 367 (65-105)
[2020-04-03] MEDS: INSULIN ASPART (*BKC) 100 UNITS/ML SUB-Q ×2 (12:40→17:32)
--- NOTE | 2020-04-03 15:58 | P.PNIM_ITS ---
Progress Note: A&P Assessment and Plan (1) Diabetic ketoacidosis: Code(s): E11.10 - Type 2 diabetes mellitus with ketoacidosis without coma Status: Acute Assessment and Plan: * With severe hyperglycemia, increased anion gap, and ketones. * Precipitating etiology of such is not clear at this time, but he notes now that tubing on pump was kinked * No history or exam findings to suggest underlying infection. * He was started on insulin drip, and was titrated per DKA protocol. early a.m 04/01. transition back to his insulin pump with sliding scale but with rising BS was placed back on drip and transitioned to lantus with novolog am 04/02 , BS still high today and adjusting dose, will follow-up with entertainment director to assess pump further (2) Elevated LFTs: Code(s): R79.89 - Other specified abnormal findings of blood chemistry Status: Acute Assessment and Plan: * No tenderness in the abdomen to suggest pathology there. * It is noted that his LFTs had been mildly increased as well with previous episodes of DKA. * LFTs all normal 04/02 (3) Hyponatremia: Code(s): E87.1 - Hypo-osmolality and hyponatremia Status: Acute Assessment and Plan: * Pseudo hyponatremia, sodium is 137 when corrected for glucose. (4) End-stage renal disease on peritoneal dialysis: Code(s): N18.6 - End stage renal disease; Z99.2 - Dependence on renal dialysis Status: Acute Assessment and Plan: * Dr. Reyes consulted for dialysis ; dialysis each eveing (5) Anemia in chronic kidney disease: Code(s): N18.9 - Chronic kidney disease, unspecified; D63.1 - Anemia in chronic kidney disease Status: Acute Assessment and Plan: * Hemoglobin his relatively stable on review of previous labs. (6) Congestive heart failure: Code(s): I50.9 - Heart failure, unspecified Status: Acute Assessment and Plan: * He is clinically compensated at this point; . (7) Coronary artery disease: Code(s): I25.10 - Atherosclerotic heart disease of [place] coronary artery without angina pectoris Status: Acute Assessment and Plan: * With history of multiple stents , no acute issues. * Continue dual anti-platelet therapy, statin, and beta-umair. (8) Essential hypertension: Code(s): I10 - Essential (primary) hypertension Status: Acute Assessment and Plan: * Blood pressures were reviewed and they have been stable. * His antihypertensives will be reviewed and resumed . Subjective Date/time seen: 04/03/20 15:58 Interval history: date of visit 04/03 . 49-year-old hypertensive male with type 2 diabetes, coronary artery disease, and end-stage renal disease on peritoneal dialysis admitted with recurrent DKA. CO2 dee and gap closed through the night and insulin drip was discontinued . No further nausea. Feels good Exam Narrative: Exam Narrative: blood pressure 140/66 pulse 60 saturating 95% on room air General: sitting up in bed comfortable HEENT: Pupils reactive.
--- NOTE | 2020-04-03 15:58 | PM.IMPN ---
Progress Note: A&P Assessment and Plan (1) Diabetic ketoacidosis: Code(s): E11.10 - Type 2 diabetes mellitus with ketoacidosis without coma Status: Acute Assessment and Plan: With severe hyperglycemia, increased anion gap, and ketones. Precipitating etiology of such is not clear at this time, but he notes now that tubing on pump was kinked No history or exam findings to suggest underlying infection. He was started on insulin drip, and was titrated per DKA protocol. early a.m 04/01. transition back to his insulin pump with sliding scale but with rising BS was placed back on drip and transitioned to lantus with novolog am 04/02 , BS still high today and adjusting dose, will follow-up with [employer] middleware architect to assess pump further (2) Elevated LFTs: Code(s): R79.89 - Other specified abnormal findings of blood chemistry Status: Acute Assessment and Plan: No tenderness in the abdomen to suggest pathology there. It is noted that his LFTs had been mildly increased as well with previous episodes of DKA. LFTs all normal 04/02 (3) Hyponatremia: Code(s): E87.1 - Hypo-osmolality and hyponatremia Status: Acute Assessment and Plan: Pseudo hyponatremia, sodium is 137 when corrected for glucose. (4) End-stage renal disease on peritoneal dialysis: Code(s): N18.6 - End stage renal disease; Z99.2 - Dependence on renal dialysis Status: Acute Assessment and Plan: Dr. Reyes consulted for dialysis ; dialysis each eveing (5) Anemia in chronic kidney disease: Code(s): N18.9 - Chronic kidney disease, unspecified; D63.1 - Anemia in chronic kidney disease Status: Acute Assessment and Plan: Hemoglobin his relatively stable on review of previous labs. (6) Congestive heart failure: Code(s): I50.9 - Heart failure, unspecified Status: Acute Assessment and Plan: He is clinically compensated at this point; . (7) Coronary artery disease: Code(s): I25.10 - Atherosclerotic heart disease of [place] coronary artery without angina pectoris Status: Acute Assessment and Plan: With history of multiple stents , no acute issues. Continue dual anti-platelet therapy, statin, and beta-umair. (8) Essential hypertension: Code(s): I10 - Essential (primary) hypertension Status: Acute Assessment and Plan: Blood pressures were reviewed and they have been stable. His antihypertensives will be reviewed and resumed . Subjective Date/time seen: 04/03/20 15:58 Interval history: date of visit 04/03 . 49-year-old hypertensive male with type 2 diabetes, coronary artery disease, and end-stage renal disease on peritoneal dialysis admitted with recurrent DKA. CO2 dee and gap closed through the night and insulin drip was discontinued . No further nausea. Feels good Exam Narrative: Exam Narrative: blood pressure 140/66 pulse 60 saturating 95% on room air General: sitting up in bed comfortable HEENT: Pupils reactive. Sclerae anicteric. Neck: Supple. No JVD. Respiratory: Lungs are clear to auscultation bilaterally. No increased work of breathing. . Cardiovascular: Regular rate and rhythm with S1-S2. No murmur, rub, or gallop. Gastrointestinal: Abdomen is soft, nontender, . PD catheter in left lower quadrant. Skin: Warm and dry. No rash or lesions on limited exam. Extremities: No edema. Radial pulses 2+, pedal pulses 1+ bilaterally. Yolanda
[2020-04-03 17:18] LABS: Glucose Point of Care 211 (65-105)
[2020-04-03 20:23] LABS: Glucose Point of Care 184 (65-105)
[2020-04-03] MEDS: FAMOTIDINE 20 MG TABLET 40 MG PO (20:53)
[2020-04-03] MEDS: ATORVASTATIN 40 MG TABLET 80 MG PO (20:54)
[2020-04-03] MEDS: INSULIN GLARGINE (*BKC) 100 UNITS/ML 20 UNITS SUB-Q (20:54)
--- NOTE | 2020-04-03 22:48 | PM.PNNEP ---
Progress Note: A&P Assessment and Plan (1) End-stage renal disease (ESRD): Code(s): N18.6 - End stage renal disease Status: Acute Assessment and Plan: continue nightly CCPD volume status looks better. (2) DKA (diabetic ketoacidosis): Code(s): E11.10 - Type 2 diabetes mellitus with ketoacidosis without coma Status: Acute Assessment and Plan: resolved back on insulin pump (3) Hyponatremia: Code(s): E87.1 - Hypo-osmolality and hyponatremia Status: Acute Assessment and Plan: pseudohyponatremia secondary to hyperglycemia sodium has normalized (4) Essential hypertension: Code(s): I10 - Essential (primary) hypertension Status: Acute Assessment and Plan: systolic in the 130s follow trend of hemodynamics (5) Anemia: Code(s): D64.9 - Anemia, unspecified Status: Acute Assessment and Plan: H/H reasonable at this time dose with Epogen while hospitalized follow trend of H/H Will continue to follow. Additional Plan Subjective Date/time seen: 04/03/20 22:48 Interval history: pt is feeling better. On PD cody it well. seen at 11am Review of Systems Cardiovascular: Cardiovascular: Reports no additional cardiovascular complaints Respiratory: Respiratory: Reports no additional respiratory complaints Gastrointestinal: Gastrointestinal: Reports no additional gastrointestinal complaints Genitourinary: Genitourinary: Reports no additional male genitourinary complaints Exam Narrative: Exam Narrative: General: WD/WN male/female in NAD Heart: normal S1 and S2; no rub Lungs: clear to auscultation Abdomen: soft, nontender, nondistended, positive bowel sounds Extremities: no cyanosis or clubbing; trace edema Skin: warm and dry Objective Data Vital Signs Vital Signs: Vital Signs - 24 hr 04/03/20 08:20 04/03/20 09:03 04/03/20 14:00 Temperature 35.9 C L 36.8 C Pulse Rate 63 63 61 Respiratory Rate 20 18 Blood Pressure 165/66 H 139/67 Pulse Oximetry 96 95 04/03/20 20:52 04/03/20 21:58 04/03/20 22:00 Temperature 36.8 C 36.8 C Pulse Rate 68 66 61 Respiratory Rate 18 18 Blood Pressure 139/67 171/75 H Pulse Oximetry 98 04/03/20 22:01 Temperature 36.8 C Pulse Rate 61 Respiratory Rate 18 Blood Pressure 139/67 Pulse Oximetry Intake/Output Intake/Output: Intake & Output 03/31/20 04/01/20 04/02/20 04/03/20 23:59 23:59 23:59 23:59 Intake Total 1600 3100 1640 2400 Output Total 2175 2081 Balance 1600 925 -761 2400 Meds/Results Medications: Active Medications Generic Name Dose Route Start Last Admin Trade Name Freq PRN Reason Stop Dose Admin Aspirin 81 mg 04/01/20 09:00 04/03/20 09:04 Aspirin Chewable PO 81 mg DAILY ASHLEY Administration Atorvastatin Calcium 80 mg 03/31/20 22:50 04/03/20 20:54 Lipitor PO 80 mg HS ASHLEY Administration Calcitriol 0.25 mcg 04/01/20 09:00 04/03/20 09:04 Rocaltrol PO 0.25 mcg QAM ASHLEY Administration Calcium Acetate 667 mg 04/01/20 08:00 04/03/20 20:53 Phoslo PO 667 mg 0800,1200,1700,2100 ASHLEY Administration Clopidogrel Bisulfate 75 mg 04/01/20 09:00 04/03/20 09:04 Plavix PO 75 mg DAILY ASHLEY Administration Colchicine 0.6 mg 04/01/20 09:00 04/03/20 09:04 Colchicine Po PO 0.6 mg [email or web address] ASHLEY Administration Dextrose 12.5 gm 04/02/20 07:50 Dextrose 50% Syringe IV PUSH PRN PRN Hypoglycemia Protocol Ezetimibe 10 mg 04/01/20 09:00 04/03/20 09:04 Zetia PO 10 mg DAILY ASHLEY Administration Famotidine 40 mg 04/01/20 21:00 04/03/20 20:53 Pepcid PO 40 mg HS ASHLEY Administration Febuxostat 40 mg 04/01/20 09:00 04/03/20 09:06 Uloric PO 05/01/20 09:01 40 mg DAILY ASHLEY Administration Furosemide 80 mg 04/01/20 09:00 04/03/20 16:43 Lasix Tablet PO 80 mg BID ASHLEY Administration Glucagon 1 mg 04/02/20 07:50 Glu
[2020-04-04 04:51] VITALS: PULSE 60; RESP 16; O2SAT 98
[2020-04-04 06:00] VITALS: BP 139/56; PULSE 57; RESP 18; TEMP 36.4; O2SAT 97
[2020-04-04] MEDS: EZETIMIBE 10 MG TABLET PO (08:24)
[2020-04-04] MEDS: CALCIUM ACETATE 667 MG TABLET PO (08:24)
[2020-04-04] MEDS: FEBUXOSTAT 40 MG TABLET PO (08:24)
[2020-04-04] MEDS: RANOLAZINE 500 MG TAB.ER.12H PO (08:24)
[2020-04-04] MEDS: LORATADINE 10 MG TABLET PO (08:24)
[2020-04-04] MEDS: hydrALAZINE HCL 50 MG TABLET 100 MG PO (08:24)
[2020-04-04] MEDS: CLOPIDOGREL BISULFATE 75 MG TABLET PO (08:24)
[2020-04-04] MEDS: ASPIRIN 81 MG CHEWABLE TABLET PO (08:24)
[2020-04-04] MEDS: calcitrioL 0.25 MCG CAPSULE PO (08:24)
[2020-04-04 08:25] VITALS: PULSE 60
[2020-04-04] MEDS: METOPROLOL TARTRATE 50 MG TAB 100 MG PO (08:25)
[2020-04-04] MEDS: ISOSORBIDE MONONITRATE 30 MG TAB.ER.24H PO (08:25)
[2020-04-04] MEDS: FUROSEMIDE 80 MG TABLET PO (08:25)
[2020-04-04 08:35] LABS: Glucose Point of Care 222 (65-105)
[2020-04-04] MEDS: INSULIN ASPART (*BKC) 100 UNITS/ML SUB-Q (08:39)
[2020-04-04] MEDS: INSULIN ASPART (*BKC) 100 UNITS/ML 15 UNITS SUB-Q (08:40)
[2020-04-04] MEDS: INSULIN GLARGINE (*BKC) 100 UNITS/ML 70 UNITS SUB-Q (08:41)
--- NOTE | 2020-04-11 11:14 | P.DS_ITS ---
DS: Admitting Diagnosis Admitting Diagnosis Admitting Diagnosis: Hyperglycemia. DS: Discharge Diagnosis Discharge Diagnosis (1) Diabetic ketoacidosis: Code(s): E11.10 - Type 2 diabetes mellitus with ketoacidosis without coma Status: Acute Assessment and Plan: * With severe hyperglycemia(BS 1179 on admission), increased anion gap, and ketones. * Precipitating etiology of such is not clear at this time, but he notes now that tubing on pump was kinked. Also addition of peritoneal dialysis last 3 months has made DM more difficult to control * No history or exam findings to suggest underlying infection. * He was started on insulin drip, and was titrated per DKA protocol. early a.m 04/01. transition back to his pump with sliding scale but with rising BS was placed back on drip and transitioned to lantus with novolog am 04/02 ,, D/c with lantus 70am and 20 pm, novolog 15 tid wm and SS, will follow-up with [employer] gl[employer] to assess pump further (2) Elevated LFTs: Code(s): R79.89 - Other specified abnormal findings of blood chemistry Status: Acute Assessment and Plan: * No tenderness in the abdomen to suggest pathology there. * It is noted that his LFTs had been mildly increased as well with previous episodes of DKA. * LFTs all normal 04/02 (3) Hyponatremia: Code(s): E87.1 - Hypo-osmolality and hyponatremia Status: Acute Assessment and Plan: * Pseudo hyponatremia, sodium is 137 when corrected for glucose. (4) End-stage renal disease on peritoneal dialysis: Code(s): N18.6 - End stage renal disease; Z99.2 - Dependence on renal dialysis Status: Acute Assessment and Plan: * nephrology consulted for dialysis ; dialysis each evening and tolerated well with no problem (5) Anemia in chronic kidney disease: Code(s): N18.9 - Chronic kidney disease, unspecified; D63.1 - Anemia in chronic kidney disease Status: Acute Assessment and Plan: * Hemoglobin his relatively stable on review of previous labs. (6) Congestive heart failure: Code(s): I50.9 - Heart failure, unspecified Status: Acute Assessment and Plan: * He is clinically compensated at this point; . (7) Coronary artery disease: Code(s): I25.10 - Atherosclerotic heart disease of [place] coronary artery without angina pectoris Status: Acute Assessment and Plan: * With history of multiple stents , no acute issues. * Continue dual anti-platelet therapy, statin, and beta-umair. (8) Essential hypertension: Code(s): I10 - Essential (primary) hypertension Status: Acute Assessment and Plan: * Blood pressures were reviewed and they have been stable. * His antihypertensives will be reviewed and resumed . DS: Summary Hospital Course Hospital Course: 49-year-old diabetic with hypertension and chronic renal failure with peritoneal dialysis past 3 months admitted in DKA with blood sugar 1179 and CO2 is 17. Placed on insulin drip and when transition back to his pump sugars dee a
--- NOTE | 2020-04-11 11:14 | PM.DS ---
DS: Admitting Diagnosis Admitting Diagnosis Admitting Diagnosis: Hyperglycemia. DS: Discharge Diagnosis Discharge Diagnosis (1) Diabetic ketoacidosis: Code(s): E11.10 - Type 2 diabetes mellitus with ketoacidosis without coma Status: Acute Assessment and Plan: With severe hyperglycemia(BS 1179 on admission), increased anion gap, and ketones. Precipitating etiology of such is not clear at this time, but he notes now that tubing on pump was kinked. Also addition of peritoneal dialysis last 3 months has made DM more difficult to control No history or exam findings to suggest underlying infection. He was started on insulin drip, and was titrated per DKA protocol. early a.m 04/01. transition back to his pump with sliding scale but with rising BS was placed back on drip and transitioned to lantus with novolog am 04/02 ,, D/c with lantus 70am and 20 pm, novolog 15 tid wm and SS, will follow-up with medical care manager to assess pump further (2) Elevated LFTs: Code(s): R79.89 - Other specified abnormal findings of blood chemistry Status: Acute Assessment and Plan: No tenderness in the abdomen to suggest pathology there. It is noted that his LFTs had been mildly increased as well with previous episodes of DKA. LFTs all normal 04/02 (3) Hyponatremia: Code(s): E87.1 - Hypo-osmolality and hyponatremia Status: Acute Assessment and Plan: Pseudo hyponatremia, sodium is 137 when corrected for glucose. (4) End-stage renal disease on peritoneal dialysis: Code(s): N18.6 - End stage renal disease; Z99.2 - Dependence on renal dialysis Status: Acute Assessment and Plan: nephrology consulted for dialysis ; dialysis each evening and tolerated well with no problem (5) Anemia in chronic kidney disease: Code(s): N18.9 - Chronic kidney disease, unspecified; D63.1 - Anemia in chronic kidney disease Status: Acute Assessment and Plan: Hemoglobin his relatively stable on review of previous labs. (6) Congestive heart failure: Code(s): I50.9 - Heart failure, unspecified Status: Acute Assessment and Plan: He is clinically compensated at this point; . (7) Coronary artery disease: Code(s): I25.10 - Atherosclerotic heart disease of [place] coronary artery without angina pectoris Status: Acute Assessment and Plan: With history of multiple stents , no acute issues. Continue dual anti-platelet therapy, statin, and beta-umair. (8) Essential hypertension: Code(s): I10 - Essential (primary) hypertension Status: Acute Assessment and Plan: Blood pressures were reviewed and they have been stable. His antihypertensives will be reviewed and resumed . DS: Summary Hospital Course Hospital Course: 49-year-old diabetic with hypertension and chronic renal failure with peritoneal dialysis past 3 months admitted in DKA with blood sugar 1179 and CO2 is 17. Placed on insulin drip and when transition back to his pump sugars dee again and had to be placed on drip and eventually transitioned to Lantus and novolog. He was discharged on Lantus or Basaglar 70 units a.m. and 20 units p.m. with novolog 15 units t.i.d. with meals and sliding scale. he will follow-up with his medical care manager to readjust his pump possibly increase basal rate or nocturnal rate with his peritoneal dialysis Time Spent with Patient Time attestation: Total time spent providing and/or coord
== END 2020-04-04 11:55 | disposition home or self-care (01) | DRG 637 ==
LOC: ANHED 15:40 → ANHICU 18:06 → ANH3MEDSUR 04-02 13:59
PROVIDERS: Emergency Medicine; Internal Medicine; Physician Assistant; Admitting Provider Internal Medicine; Emergency Provider General Practice; PCP Family Medicine; Visit Provider Internal Medicine
DX: E10.10 Type 1 diabetes mellitus with ketoacidosis without coma (principal); N18.6 End stage renal disease; I12.0 Hypertensive chronic kidney disease with stage 5 chronic kidney disease or end stage renal disease; N25.81 Secondary hyperparathyroidism of renal origin; E87.1 Hypo-osmolality and hyponatremia; E10.65 Type 1 diabetes mellitus with hyperglycemia; D63.1 Anemia in chronic kidney disease; M19.90 Unspecified osteoarthritis, unspecified site; K21.9 Gastro-esophageal reflux disease without esophagitis; I25.10 Atherosclerotic heart disease of native coronary artery without angina pectoris; G47.33 Obstructive sleep apnea (adult) (pediatric); I48.0 Paroxysmal atrial fibrillation; E10.42 Type 1 diabetes mellitus with diabetic polyneuropathy; E10.319 Type 1 diabetes mellitus with unspecified diabetic retinopathy without macular edema; E10.22 Type 1 diabetes mellitus with diabetic chronic kidney disease; I25.2 Old myocardial infarction; Z86.718 Personal history of other venous thrombosis and embolism; F41.9 Anxiety disorder, unspecified; Z99.2 Dependence on renal dialysis
CPT/HCPCS: 36415; 36600; 71045; 80048; 80053; 80074; 80076; 81001; 82010; 82375; 82805; 82947; 82948; 83036; 83050; 83690; 83735; 84100; 85025; 86140; 90945; 93005; 96365; 96375; 99291; A9270; J1644; J1815; J2405; J3480; J7030; J7040

== ENCOUNTER 2020-09-15 06:54 | Outpatient (NON) | payer MEDICARE, MEDICAID, SELFPAY ==
[2020-09-15 21:14] LABS: SARS-CoV-2 RNA PCR Negative
== END 2020-09-15 06:55 ==
PROVIDERS: PCP Family Medicine; Visit Provider Family Medicine
DX: R50.9 Fever, unspecified (principal); Z20.822 Contact with and (suspected) exposure to COVID-19
CPT/HCPCS: C9803; U0003; U0005

== ENCOUNTER 2020-09-24 07:31 | Outpatient (CLI) | payer MEDICARE, MEDICAID, SELFPAY ==
--- NOTE | ~2020-09-24 | US_ITS ---
US right upper quadrant DATE: 09/24/2020 08:12 INDICATION: Right upper quadrant abdominal pain TECHNIQUE: Real-time imaging of liver, pancreas, gallbladder areas COMPARISON: 09/10/2019 right upper quadrant abdominal ultrasound FINDINGS: Thickened gallbladder wall measuring up to approximately 3.5 mm and greater. One or more po ssible small stones is suggested at the gallbladder neck. Consider correlation with radionuclide hepa tobiliary scan. Negative sonographic Jade's sign. No hepatic space-occupying mass lesion is evident. Normal hepatopedal portal venous flow direction. The common bile duct measures 3.3 mm, normal. IMPRESSION: Gallbladder wall thickening Questionable possible small stone or stones at gallbladder neck Consider radionuclide hepatobiliary scan if clinically appropriate to exclude acute cholecystitis Reviewed, dictated and finalized at [facility]. Reviewed, dictated and finalized at [facility]. [facility] [employer] IMPRESSION: Gallbladder wall thickening Questionable possible small stone or stones at gallbladder neck Consider radionuclide hepatobiliary scan if clinically appropriate to exclude a cute cholecystitis
== END 2020-09-24 07:32 | disposition home or self-care (01) ==
PROVIDERS: PCP Family Medicine; Visit Provider Family Medicine
DX: R10.11 Right upper quadrant pain (principal)
CPT/HCPCS: 76705

== ENCOUNTER 2020-11-20 07:06 | Outpatient (CLI) | payer MEDICARE, MEDICAID, SELFPAY ==
--- NOTE | ~2020-11-20 | MR_ITS ---
EXAMINATION: MR lumbar spine wo con DATE: 11/20/2020 08:04 INDICATION: Lumbar radiculopathy TECHNIQUE: Magnetic resonance imaging (MRI) of the lumbar spine was performed without intravenous con trast. Sequences included sagittal T2-weighted FSE, sagittal T2-weighted FS FSE, sagittal T1-weighted FSE, and axial T2-weighted FSE. COMPARISON: None FINDINGS: 2 mm retrolisthesis L5 on S1. Alignment is otherwise normal. Minimal likely physiologic anterior wedg ing at L1. Remaining vertebral body heights are normal. Minimal marrow edema along the margins of a s mall Schmorl's node at the inferior endplate of L5. Diffuse heterogeneous red and yellow marrow signa l. Disc desiccation without significant disc height loss at L4-L5 and L5-S1. The conus medullaris ter minates at L1. There is normal signal in the caudal spinal cord. Paravertebral soft tissues are unrem arkable. The following disc levels are specifically discussed: T12-L1: The disc does not extend beyond the endplate margin. There is mild right and minimal left fac et joint osteoarthritis. There is no neural foraminal stenosis. There is no central canal stenosis. L1-L2: Disc is minimally bulging. There is mild right and minimal left facet joint osteoarthritis. Th ere is minimal bilateral neural foraminal stenosis. There is no central canal stenosis. L2-L3: Very small disc protrusions at the bilateral foraminal zones. There is mild right and minimal left facet joint osteoarthritis. There is mild bilateral neural foraminal stenosis. There is no centr al canal stenosis. L3-L4: Very small disc protrusions at the bilateral foraminal zones. There is mild bilateral facet regis int osteoarthritis. There is mild to moderate bilateral neural foraminal stenosis. There is no centra l canal stenosis. L4-L5: Disc is mildly bulging with superimposed annular fissure. There is mild bilateral facet joint osteoarthritis. There is moderate bilateral neural foraminal stenosis. There is no central canal sten osis. L5-S1: Disc is mildly bulging with superimposed annular fissure. There is mild bilateral facet joint osteoarthritis. There is moderate bilateral neural foraminal stenosis. There is no central canal sten osis. IMPRESSION: 1. Mild lumbar spondylosis with mild to moderate lower lumbar predominant bilateral neural foraminal stenosis. Reviewed, dictated and finalized at [facility]. IMPRESSION: 1. Mild lumbar spondylosis with mild to moderate lower lumbar predominant bilat eral neural foraminal stenosis.
== END 2020-11-20 07:07 | disposition home or self-care (01) ==
PROVIDERS: PCP Family Medicine; Visit Provider Nurse Practitioner Adult Health
DX: M54.16 Radiculopathy, lumbar region (principal); M47.816 Spondylosis without myelopathy or radiculopathy, lumbar region; M48.061 Spinal stenosis, lumbar region without neurogenic claudication
CPT/HCPCS: 72148

== ENCOUNTER 2020-11-26 15:47 | Inpatient (IN) | payer MEDICARE, MEDICAID, SELFPAY ==
[2020-11-26] VITALS (21 sets, daily range): BP systolic 126–168; BP diastolic 39–67; PULSE 51–83; RESP 11–19; TEMP 36.4–37.1; O2SAT 96–100; BMI 41.9
--- NOTE | ~2020-11-26 | XR_ITS ---
EXAMINATION: XR chest 1V portable INDICATION: Chest pain TECHNIQUE: Portable AP chest at 1706 hours COMPARISON: 03/31/2020 FINDINGS: The lungs are free of acute opacities. There is no pleural effusion or pneumothorax. The ca rdiomediastinal silhouette is normal. IMPRESSION: 1. No acute cardiopulmonary abnormality. Reviewed, dictated and finalized at [facility].
[2020-11-26 16:06] LABS: Glucose Point of Care > 500 (65-105)
[2020-11-26 16:14] LABS: Basophils Percent Auto 0.3 % (0.2-1.2); Eosinophils Absolute Auto 0.1 K/mm3 (0-0.3); Eosinophils Percent Auto 1.2 % (0-4.4); Hematocrit 31.6 % (42.0-52.0); Hemoglobin 10.7 g/dL (14.0-18.0); Immature Granulocyte Absolute 0.03 K/mm3 (0.00-0.031); Immature Granulocyte Percent A 0.5 % (0-0.5); Lymphocytes Absolute Auto 0.96 K/mm3 (0.9-3.2); Lymphocytes Percent Auto 15.8 % (18.3-44.2); Mean Corpuscular HGB Conc 33.9 g/dl (32-36); Mean Corpuscular Hemoglobin 34.1 pg (26-34); Mean Corpuscular Volume 100.6 fl (80-100); Mean Platelet Volume 9.9 fl (7.4-10.4); Monocytes Absolute Auto 0.6 K/mm3 (0.1-0.6); Monocytes Percent Auto 9.4 % (2.6-8.5); Neutrophils Absolute Auto 4.4 K/mm3 (1.3-6.7); Neutrophils Percent Auto 72.8 % (45.5-73.1); Platelet Count Result 166 k/mm3 (150-375); Red Blood Count 3.14 M/mm3 (4.6-6.20); Red Cell Distribution Width 13.4 % (11.5-14.5); White Blood Count 6.1 K/mm3 (4.5-10.0)
--- NOTE | 2020-11-26 16:21 | ED.GENADULT ---
HPI - General Adult General Chief complaint: Weakness Stated complaint: Blood Sugar Issues, Chest Pain Time Seen by Provider: 11/26/20 16:08 Source: patient Mode of arrival: ambulatory Limitations: no limitations History of Present Illness HPI narrative: Patient is 50-year-old male complaining of elevated blood sugar at home, states that when he took his blood sugar read high . Patient also complaining of chest tightness, midsternal, 6 out of 10, nonradiating accompanied by weakness and shortness of breath that started today. Patient states that he has a history of end-stage renal disease on peritoneal dialysis. Patient denies any nausea, vomiting, diarrhea, fever or chills. Related Data Home Medications Medication Instructions Recorded Confirmed aspirin 81 mg PO DAILY 06/04/19 07/23/20 calcitriol 0.25 mcg PO QAM 06/04/19 07/23/20 clopidogrel 75 mg PO DAILY 06/04/19 07/23/20 ergocalciferol (vitamin D2) 50,000 unit PO WEEKLY 06/04/19 07/23/20 [Vitamin D2] hydralazine 100 mg PO Q8H 06/04/19 07/23/20 nitroglycerin 0.4 mg SUBLINGUAL Q5-15M PRN 06/04/19 07/23/20 ezetimibe [Zetia] 10 mg PO DAILY 09/09/19 07/23/20 isosorbide mononitrate 30 mg PO DAILY 09/09/19 07/23/20 metoprolol tartrate 100 mg PO Q12H 09/09/19 07/23/20 ranolazine 500 mg tablet,extended 500 mg PO Q12H 09/24/19 07/23/20 release,12 hr cetirizine [All Day Allergy 10 mg PO DAILY 12/26/19 07/23/20 (cetirizine)] furosemide 80 mg PO BID 02/02/20 07/23/20 calcium acetate(phosphat bind) 667 mg PO QID 03/31/20 07/23/20 famotidine 40 mg PO HS 03/31/20 07/23/20 subcutaneous insulin pump #1 ea 08/24/20 atorvastatin 11/26/20 clonidine HCl 11/26/20 cyclobenzaprine mg 11/26/20 11/26/20 doxycycline hyclate 11/26/20 11/26/20 meloxicam 11/26/20 11/26/20 omeprazole 11/26/20 11/26/20 valacyclovir 11/26/20 Allergies Allergy/AdvReac Type Severity Reaction Status Date / Time allopurinol Allergy Severe Other Verified 11/26/20 15:59 iohexol Allergy Severe Difficulty Verified 11/26/20 15:59 [From CONTRAST - CT, XRAY] Breathing ticagrelor Allergy Intermediate Rash Verified 11/26/20 15:59 Review of Systems Review of Systems: All systems reviewed & are unremarkable except as noted in HPI and below Constitutional: Constitutional: Denies body ache(s), Denies chills, Denies excessive sweating, Denies fatigue, Denies fever(s), Denies headache(s), Denies lethargy, Denies malaise and Denies weight loss Eyes: Eyes: Denies blurry vision, Denies change in vision and Denies loss of vision ENT: Denies dizziness, Denies ear discharge, Denies headache(s), Denies lip swelling, Denies epistaxis, Denies nasal congestion, Denies neck pain, Denies throat swelling and Denies tongue swelling Cardiovascular: Cardiovascular: Denies diaphoresis, Denies rapid heart rate, Denies edema, Denies irregular heart rhythm, Denies lightheadedness and Denies palpitations Respiratory: Respiratory: Denies chest congestion, Denies cough and Denies hemoptysis Gastrointestinal: Gastrointestinal: Denies abdominal pain, Denies melena, Denies hematochezia, Denies diarrhea, Denies nausea, Denies vomiting and Denies hematemesis Musculoskeletal: Musculoskeletal: Denies abnormal gait, Denies deformity, Denies joint swelling, Denies limited range of motion, Denies neck pain and Denies numbness Neurologic: Denies Abnormal speech present, Denies abnormal gait, Denies confusion, Denies dizziness, Denies headache(s), Denies focal weakness, Denies loss of vision, Denies numbness, Denies Other visual disturbances, Denies Sensory deficit (Neuro) and Denies weakness Psychiatric: Psychiatric: Denies confusion, Denies depression, Denies auditory hallucinations, Denies homicidal ideation and Denies suicidal ideation Endocrine: Endocrine: Denies cold intolerance, Denies excessive sweating, Denies fatigue, Denies heat intolerance and Denies palpitations Hematologic/Lymphatic: Hematologic/Lymphatic: Denies easy bleeding and Den
[2020-11-26 16:32] LABS: Beta-Hydroxybutyrate/Acetoacetate 3.19 mmol/L (0.02-0.27)
[2020-11-26 16:40] LABS: Alanine Aminotransferase 64 U/L (4-50); Albumin Level 3.6 g/dL (3.5-5.1); Alkaline Phosphatase 124 U/L (38-126); Anion Gap 16 mmol/L (8-16); Aspartate Amino Transferase 59 U/L (17-59); Bilirubin,Total 1.6 mg/dL (0.2-1.3); Blood Urea Nitrogen 70 mg/dL (9-20); Calcium 8.2 mg/dL (8.4-10.2); Carbon Dioxide 20 mmol/L (22-30); Chloride 87 mmol/L (98-107); Estimated CRCL calculation 21 ml/min; Estimated Glomerular Filt Rate 11; Glucose 866 mg/dL (75-110); Magnesium 1.8 mg/dL (1.6-2.3); Phosphorus 3.4 mg/dL (2.5-4.5); Potassium 4.9 mmol/L (3.4-5.0); Sodium 123 mmol/L (137-145)
[2020-11-26] MEDS: LACTATED RINGERS 1,000 ML 999 ML IV CONT (16:51)
[2020-11-26] MEDS: ASPIRIN 81 MG CHEWABLE TABLET 324 MG PO (16:51)
[2020-11-26 17:01] LABS: Alveolar/Arterial O2 Gradient 14.8 mmHg; Base Excess ABG -7.2 mEq/l (+/-2.0); Carboxyhemoglobin 0.5 % THb (0-2.0); Fractional Inspired Oxygen 21 %; HCO3 ABG 17.8 mEq/l (22.0-26.0); Methemoglobin ABG 0.2 %THb (0-1.5); Oxygen Content ABG 14.8 %vol (16.0-22.0); Oxygen Saturation ABG 96.9 % (95.0-100.0); Oxyhemoglobin 95.1 % THb (90.0-100.0); PO2 ABG 94.2 mmHg (80.0-100.0); PO2 FiO2 Ratio Arterial Blood 4.49 %; Reduced Hemoglobin 4.2 %THb (0-5.0); pH ABG 7.336 (7.350-7.450)
[2020-11-26 17:02] LABS: Site Drawn LEFT BRACHIAL
[2020-11-26 17:03] LABS: Device ROOM AIR; Modified Allen's Test Pass
[2020-11-26] MEDS: INSULIN HUMAN REGULAR (*BKC) 100 UNITS/ML 10 UNITS IV PUSH (17:06)
[2020-11-26 17:14] LABS: Troponin I < 0.012 ng/mL (0.000-0.034)
--- NOTE | 2020-11-26 17:32 | ECG_ITS ---
Measurements Intervals [place] Rate: 63 P: 37 OR: 206 QRS: -49 QRSD: 134 T: 78 QT: 501 QTc: 515 Interpretive Statements SINUS RHYTHM WITH FIRST DEGREE AV BLOCK LEFT AXIS DEVIATION INTRAVENTRICULAR CONDUCTION DELAY CANNOT RULE OUT SEPTAL INFARCT, AGE INDETERMINATE BORDERLINE ST-T WAVE ABNORMALITY- HIGH LATERAL LEADS BASELINE ARTIFACT- I, II, III, AVR, AVF, V2-V6 ABNORMAL ECG Electronically Signed On 11-27-2020 7:08:40 CDT by Doc Dorantes D.O.
--- NOTE | 2020-11-26 17:45 | PC.NURSE ---
called Norman cardenas, added on PT INR PTT [id number]
[2020-11-26 17:56] LABS: INR 0.9; Prothrombin Time 13.2 Seconds (11.1-14.7)
[2020-11-26 17:57] LABS: Partial Thromboplastin Time 26.2 SECONDS (22.3-36.8)
[2020-11-26 18:08] LABS: Add Urine Microscopic? YES; Appearance Urine Clear (Clear); Bilirubin Urine Negative (Negative); Blood Urine Negative (Negative); Color Urine Yellow (Yellow); Glucose Urine UA 3+ mg/dL (Negative); Ketones Urine Trace mg/dL (Negative); Leukocyte Esterase Ur Negative LEU/UL (Negative); Nitrate Urine Negative (Negative); Protein Urine Negative (Negative); RBC Urine 0-2 /hpf (0-2); Specific Grav Ur 1.015 (1.001-1.035); Urobilinogen Urine Negative mg/dL (<2.0); WBC Urine 0-3 /hpf
[2020-11-26 18:14] LABS: Glucose Point of Care > 500 (65-105)
[2020-11-26] MEDS: INSULIN HUMAN REGULAR (*BKC) 100 UNITS in SODIUM CHLORIDE 0.9% IV 99 ML 16 UNITS IV CONT (18:21)
[2020-11-26 19:22] LABS: Glucose Point of Care > 500 (65-105)
--- NOTE | 2020-11-26 19:22 | PC.NURSE ---
Bedside glucose HI
[2020-11-26 20:25] LABS: Troponin I 0.015 ng/mL (0.000-0.034)
[2020-11-26 20:37] LABS: Glucose 651 mg/dL (75-110)
[2020-11-26 21:48] LABS: Glucose Point of Care > 500 (65-105)
--- NOTE | 2020-11-26 21:55 | PM.IMHP ---
H&P: HPI History of Present Illness Date/Time: 11/26/20 21:55 this is a 50-year-old male patient who has a history of diabetes type 1 who was diagnosed at the age of 13. The patient is seeing Endocrinology. [facility]. The patient typically has the insulin pump hit his stated that his blood sugars have been in the 2 and 300 since that his insulin pump. The patient saw his court operations clerk last on 09/08/2020. The patient has a dex, and stated that his dexcom has been reading high today. It typically does not read over 400. The patient stated that his last A1c was around 8. 7.336. Bicarb was 17.8. Sodium was 123 chloride 87 carbon dioxide 20. Creatinine 5.3. Patient's glucose was listed as 651. Be have was noted to be 3.19. Anion gap is 16. Since the patient is end-stage renal disease only 1 L of fluid was given in the emergency room. I asked for desk representative to be consulted. The patient was started on insulin drip. Nephrology has been consulted as well as claims configuration analyst. The patient is admitted to inpatient on the date of service 12/09 Chief Complaint: Elevated blood sugar Review of Systems Review of Systems: All systems reviewed & are unremarkable except as noted in HPI and below Constitutional: Constitutional: Reports as per HPI and Reports no additional constitutional complaints Eyes: Eyes: Reports as per HPI and Reports no additional eye complaints ENT: Reports system reviewed and no additional complaints, except as documented and Reports Normal hearing present Cardiovascular: Cardiovascular: Reports no additional cardiovascular complaints Respiratory: Respiratory: Reports no additional respiratory complaints and Reports no additional respiratory complaints Gastrointestinal: Gastrointestinal: Reports as per HPI and Reports no additional gastrointestinal complaints Musculoskeletal: Musculoskeletal: Reports no additional musculoskeletal complaints Integumentary/Breasts: Skin/Breast: Reports system reviewed and no additional complaints, except as docu and Reports as per HPI Neurologic: Reports system reviewed and no additional complaints, except as documented, Reports as per HPI and Reports Normal hearing present Psychiatric: Psychiatric: Reports no additional psychiatric complaints and Reports as per HPI Endocrine: Endocrine: Reports no additional endocrine complaints Hematologic/Lymphatic: Hematologic/Lymphatic: Reports no additional hematologic/lymphatic complaints Allergic/Immunologic: Allergic/Immunologic: Reports no additional allergic/immunologic complaints [facility] Past Medical History Medical History (Updated 11/26/20 @ 22:39 by Clarice Christian NP) Anemia in chronic kidney disease Anxiety Arthritis Bronchitis Congestive heart failure Echocardiogram May 2017 EF of 50% with hypokinetic apical, inferior and basal inferior lateral segment, mild enlargement of left atrium. Coronary artery disease With history of several stents. Followed by [facility]. Deep venous thrombosis Chronic right popliteal DVT. Diabetic peripheral neuropathy Diabetic retinopathy End-stage renal disease on peritoneal dialysis Essential hypertension Fracture left lower ext Gastroesophageal reflux disease Gout Hyperlipidemia Obstructive sleep apnea With inconsistent CPAP use. Paroxysmal atrial fibrillation The patient denies Secondary hyperparathyroidism of renal origin Seizure X1 with etiology unknown Type 1 diabetes mellitus Onset around age 13. Surgical History Surgical History (Updated 11/26/20 @ 22:52 by Clarice Christian NP) History of anterior cruciate ligament surgery (~2000) Left knee History of appendectomy (~2006) History of arthroscopy of left knee History of bilateral carpal tunnel release Right 05/03/2018. Left 06/02/2018. History of cardiac catheterization :August 2019 demonstrated patent stents with 40% stenosis of 1 vessel with no stents or angioplast
--- NOTE | 2020-11-26 22:07 | ADMGEN ---
This patient, Juvenal Daigle Jr., was admitted to Intensive Care Unit-6 at 2052. Patient/family oriented to hospital policies and general routines including ID bracelet, bed and alarms, visiting hours, pain management, procedures, bathroom and other care routines, personal items, smoking policy, room service/diet, and visiting hours. Information on how to activate the Rapid Response Team has been discussed. Patient/Family are encouraged to report perceived risks to care and to ask questions if they do not understand what they are told or what they should do.
[2020-11-26 22:24] LABS: Glucose Point of Care 476 (65-105)
[2020-11-26 22:29] LABS: Anion Gap 11 mmol/L (8-16); Blood Urea Nitrogen 74 mg/dL (9-20); Calcium 8.4 mg/dL (8.4-10.2); Carbon Dioxide 23 mmol/L (22-30); Chloride 91 mmol/L (98-107); Estimated CRCL calculation 20 ml/min; Estimated Glomerular Filt Rate 11; Potassium 4.4 mmol/L (3.4-5.0); Sodium 125 mmol/L (137-145)
[2020-11-26] MEDS: INSULIN HUMAN REGULAR (*BKC) 100 UNITS in SODIUM CHLORIDE 0.9% IV 99 ML 25 UNITS IV CONT (22:33)
[2020-11-26 23:13] LABS: Glucose Point of Care 411 (65-105)
[2020-11-27] VITALS (17 sets, daily range): BP systolic 143–184; BP diastolic 49–66; PULSE 53–64; RESP 12–20; TEMP 36.1–36.9; O2SAT 95–100
[2020-11-27 00:04] LABS: Glucose Point of Care 327 (65-105)
[2020-11-27 00:31] LABS: Anion Gap 7 mmol/L (8-16); Blood Urea Nitrogen 76 mg/dL (9-20); Calcium 8.2 mg/dL (8.4-10.2); Carbon Dioxide 28 mmol/L (22-30); Chloride 94 mmol/L (98-107); Estimated CRCL calculation 20 ml/min; Estimated Glomerular Filt Rate 11; Glucose 323 mg/dL (75-110); Potassium 3.8 mmol/L (3.4-5.0); Sodium 129 mmol/L (137-145)
[2020-11-27 00:43] LABS: Troponin I 0.027 ng/mL (0.000-0.034)
[2020-11-27 00:49] LABS: Hemoglobin A1C 8.4 % (<5.7)
[2020-11-27 00:57] LABS: Glucose Point of Care 257 (65-105)
[2020-11-27] MEDS: hydrALAZINE HCL 50 MG TABLET 100 MG PO ×4 (00:58→20:42)
[2020-11-27] MEDS: RANOLAZINE 500 MG TAB.ER.12H PO ×3 (00:58→20:41)
[2020-11-27 02:12] LABS: Glucose Point of Care 180 (65-105)
[2020-11-27] MEDS: INSULIN GLARGINE (*BKC) 100 UNITS/ML 70 UNITS SUB-Q (03:28)
[2020-11-27 03:32] LABS: Glucose Point of Care 118 (65-105)
[2020-11-27 04:36] LABS: Glucose Point of Care 71 (65-105)
[2020-11-27 04:36] LABS: Glucose Point of Care 66 (65-105)
[2020-11-27 04:58] LABS: Basophils Percent Auto 0.4 % (0.2-1.2); Eosinophils Absolute Auto 0.3 K/mm3 (0-0.3); Hematocrit 28.1 % (42.0-52.0); Hemoglobin 10.1 g/dL (14.0-18.0); Immature Granulocyte Absolute 0.03 K/mm3 (0.00-0.031); Immature Granulocyte Percent A 0.4 % (0-0.5); Lymphocytes Absolute Auto 2.92 K/mm3 (0.9-3.2); Lymphocytes Percent Auto 40.6 % (18.3-44.2); Mean Corpuscular HGB Conc 35.9 g/dl (32-36); Mean Corpuscular Hemoglobin 33.7 pg (26-34); Mean Corpuscular Volume 93.7 fl (80-100); Monocytes Absolute Auto 1.2 K/mm3 (0.1-0.6); Monocytes Percent Auto 16.4 % (2.6-8.5); Neutrophils Absolute Auto 2.7 K/mm3 (1.3-6.7); Neutrophils Percent Auto 38.2 % (45.5-73.1); Platelet Count Result 188 k/mm3 (150-375); Red Cell Distribution Width 13.1 % (11.5-14.5); White Blood Count 7.2 K/mm3 (4.5-10.0)
[2020-11-27 05:09] LABS: Anion Gap 7 mmol/L (8-16); Blood Urea Nitrogen 74 mg/dL (9-20); Calcium 8.6 mg/dL (8.4-10.2); Carbon Dioxide 31 mmol/L (22-30); Chloride 97 mmol/L (98-107); Estimated CRCL calculation 19 ml/min; Estimated Glomerular Filt Rate 11; Glucose 79 mg/dL (75-110); Magnesium 2.1 mg/dL (1.6-2.3); Phosphorus 3.6 mg/dL (2.5-4.5); Potassium 3.5 mmol/L (3.4-5.0); Sodium 135 mmol/L (137-145)
[2020-11-27 06:16] LABS: Glucose Point of Care 92 (65-105)
[2020-11-27] MEDS: cloNIDine HCL 0.1 MG TABLET PO ×2 (06:19→13:04)
[2020-11-27] MEDS: METOPROLOL TARTRATE 50 MG TAB 100 MG PO ×2 (08:23→20:43)
[2020-11-27] MEDS: ISOSORBIDE MONONITRATE 30 MG TAB.ER.24H PO (08:24)
[2020-11-27] MEDS: COLCHICINE 0.6 MG TABLET PO (08:25)
[2020-11-27] MEDS: LORATADINE 10 MG TABLET PO (08:25)
[2020-11-27] MEDS: calcitrioL 0.25 MCG CAPSULE PO (08:25)
[2020-11-27] MEDS: EZETIMIBE 10 MG TABLET PO (08:26)
[2020-11-27] MEDS: CALCIUM ACETATE 667 MG TABLET PO ×4 (08:26→20:44)
[2020-11-27] MEDS: ASPIRIN 81 MG CHEWABLE TABLET PO (08:26)
[2020-11-27] MEDS: FUROSEMIDE 80 MG TABLET PO ×2 (08:26→17:21)
[2020-11-27] MEDS: CLOPIDOGREL BISULFATE 75 MG TABLET PO (08:26)
[2020-11-27] MEDS: valACYclovir HCL 500 MG TABLET PO ×3 (08:27→17:20)
[2020-11-27] MEDS: PANTOPRAZOLE 40 MG TABLET PO (08:27)
[2020-11-27 08:32] LABS: Glucose Point of Care 112 (65-105)
--- NOTE | 2020-11-27 08:54 | WPDCNINT ---
Assessment and Plan Assessment and plan (1) DKA (diabetic ketoacidosis): Qualifiers: Diabetes mellitus complication detail: without coma Diabetes mellitus type: other specified (including FABIENNE) Qualified Code(s): E13.10 - Other specified diabetes mellitus with ketoacidosis without coma Code(s): E11.10 - Type 2 diabetes mellitus with ketoacidosis without coma Status: Acute Assessment and Plan: Patient was started on IV fluid bolus which were conservative in amount due to his CHF and end-stage renal disease history He was also started on IV insulin infusion. His anion gap has been closed and he has been transition to subcutaneous insulin Continue Lantus and sliding scale at this time Check A1c. perioperative educator consult (2) Obstructive sleep apnea: Code(s): G47.33 - Obstructive sleep apnea (adult) (pediatric) Status: Acute Assessment and Plan: Patient is wearing home CPAP (3) Essential hypertension: Code(s): I10 - Essential (primary) hypertension Status: Chronic Assessment and Plan: Continue home medications and p.r.n. hydralazine. (4) Angina pectoris, unspecified: Code(s): I20.9 - Angina pectoris, unspecified Status: Acute Assessment and Plan: EKG was abnormal but patient has serial troponin done and were negative Patient does have history of coronary disease with multiple stents Consult cardiology Continue statin Plavix Ranexa Imdur (5) Coronary artery disease: Code(s): I25.10 - Atherosclerotic heart disease of [place] coronary artery without angina pectoris Status: Acute Assessment and Plan: See above (6) End stage renal disease on dialysis: Code(s): N18.6 - End stage renal disease; Z99.2 - Dependence on renal dialysis Status: Acute Assessment and Plan: Nephrology consult for PD Additional Plan DVT prophylaxis -Lovenox Code Status - Full Code Transfer out of ICU today Correction Officer Consult Note Consult date: 11/27/20 Time Seen: 08:00 HPI: Juvenal Michael Daigle Jr. is a 50 year old male patient who has a history of diabetes type 1 who was diagnosed at the age of 13. The patient is seeing Endocrinology and has insulin pump and dexcom continuous glucose monitoring. Patient also has other past medical history of coronary disease, end-stage renal disease on peritoneal dialysis and congestive heart failure. Patient presented yesterday to ER with complaint of high blood sugars and feeling sick. He told me that he woke up with his dexcom reading high. He gave himself a 25 unit bolus which has worked in the past but this time it did not help. He continued to feel sick all day. He stated that his breathing was heavier and was nauseous. He also had episode of chest pressure which was 8/10, pressure in quality in the middle of chest did not radiate anywhere. It continued until he reached ED and then got resolved when his blood sugar came down. He denied any fever cough vomiting diarrhea abdominal pain headache palpitations or shortness of breath yesterday In ED patient was found to be had in DKA. He was given a 1 L fluid bolus and started on IV insulin infusion. Overnight his anion gap closed and he was transitioned to subcutaneous insulin. Nephrology was consulted for peritoneal dialysis. And review of system patient also mentioned that he has limited functional capacity and as he is able to walk to his driveway at best before getting out of and and also sometimes gets chest pressure. He told me he was scheduled to get a stress test an outpatient in near future. All other systems were reviewed and were negative for any complaints. Review of Systems Review of Systems: All systems reviewed & are unremarkable except as noted in HPI and below (HPI) [facility] Past Medical History Medical History Anemia in chronic kidney disease Anxiety Arthritis Bronchiti
[2020-11-27] MEDS: ENOXAPARIN 30 MG/0.3 ML SYRINGE SUB-Q (11:33)
--- NOTE | 2020-11-27 11:41 | PC.NURSE ---
This patient, Juvenal Rodriguez Pilo Brock, was received from [ ICU] on 11/27/20 at 1141. Patient/family oriented to unit policies and routines
--- NOTE | 2020-11-27 11:52 | PC.NURSE ---
This patient, Juvenal Daigle , was transferred to [[facility] ] on 11/27/20 at 1145. Personal belongings sent with patient. Report given to [ Aury ]. Appropriate documentation sent with patient.
[2020-11-27] MEDS: INSULIN ASPART (*BKC) 100 UNITS/ML SUB-Q (11:58)
[2020-11-27] MEDS: hydrALAZINE HCL 20 MG/ML VIAL 10 MG IV PUSH (12:03)
--- NOTE | 2020-11-27 12:05 | PM.EVENT ---
Event Note Event Note Event Note: Late entry. the patient does on peritoneal dialysis. He is tolerating it well. Fluid is clear. Seen at noon.
[2020-11-27 12:16] LABS: Glucose Point of Care 330 (65-105)
--- NOTE | 2020-11-27 12:34 | PM.CNNEP ---
Assessment and Plan Assessment and plan (1) End-stage renal disease on peritoneal dialysis: Code(s): N18.6 - End stage renal disease; Z99.2 - Dependence on renal dialysis Status: Acute Assessment and Plan: Tiffanie has end-stage renal disease due to diabetes and hypertension. He is on peritoneal dialysis. He did not receive his dialysis last night. He is doing well today as far as volume goes. His electrolytes and BUN are okay. We will resume dialysis this evening either here or at home depending on whether he is discharged. (2) DKA (diabetic ketoacidosis): Qualifiers: Diabetes mellitus complication detail: without coma Diabetes mellitus type: other specified (including FABIENNE) Qualified Code(s): E13.10 - Other specified diabetes mellitus with ketoacidosis without coma Code(s): E11.10 - Type 2 diabetes mellitus with ketoacidosis without coma Status: Acute Assessment and Plan: The patient had DKA. He was on insulin drip and this has now resolved. He is doing better with his sugars. His A1c was 8.4. Is working with an student truck driver. (3) Essential hypertension: Code(s): I10 - Essential (primary) hypertension Status: Chronic Assessment and Plan: The patient has hypertension. His blood pressure is a bit high. Will see how he does back on dialysis. He is on clonidine, hydralazine, and metoprolol. (4) Hyponatremia: Code(s): E87.1 - Hypo-osmolality and hyponatremia Status: Acute Assessment and Plan: Sodium level is low mostly because of the high sugars. He also may have low sodium with water drinking. (5) Obstructive sleep apnea: Code(s): G47.33 - Obstructive sleep apnea (adult) (pediatric) Status: Acute Assessment and Plan: The patient is not consistent in using his CPAP machine. (6) Coronary artery disease: Code(s): I25.10 - Atherosclerotic heart disease of [place] coronary artery without angina pectoris Status: Acute Assessment and Plan: He is having no chest pain. History of Present Illness Reason for Consult Consult date: 11/27/20 Chief Complaint Chief complaint: DKA, ESRD, CHEST PAIN History of Present Illness Narrative: Tiffanie is a very pleasant 50-year-old gentleman who has multiple medical problems including type 1 diabetes, end-stage renal disease on dialysis for about 14 months, coronary disease status post ND in 2017 and stents following that plus chest pain in 2019 and more stents after that but not an ND at that time he does not think. The patient also has a history of congestive heart failure, paroxysmal atrial fibrillation, hypertension, anxiety, GERD, gout, hydro hyperlipidemia, sleep apnea, seizure, anemia, renal osteodystrophy. Patient came in the hospital because his sugars were very high. He has an insulin pump which is connected to a pod to read his sugars. Unfortunately there was a malfunction such that his insulin pump did not know a sugars were high. His sugars continue to rise and he ended up in DKA. He came to the ER. They confirmed that this was the case. He was admitted to the ICU and given an insulin pump. His sugars came down and his anion gap came down to normal. He was switched to subcu insulin and now he is in a regular medical bed. Now he feels okay. He is not having any chest pain or shortness of breath. He does not smoke or drink. Review of Systems Constitutional: Constitutional: Reports no additional constitutional complaints Eyes: Eyes: Reports no additional eye complaints ENT: Reports system reviewed and no additional complaints, except as documented Cardiovascular: Cardiovascular: Reports no additional cardiovascular complaints Respiratory: Respiratory: Reports no additional respiratory complaints Gastrointestinal: Gastrointestinal: Reports no additional gastrointestinal complaints Genitourinary: Genitourinary: Reports no additional male genitour
[2020-11-27] MEDS: ACETAMINOPHEN 325 MG TABLET 650 MG PO (13:03)
[2020-11-27 13:17] LABS: Glucose Point of Care 395 (65-105)
--- NOTE | 2020-11-27 15:19 | PM.CNCAR ---
Assessment and Plan Additional Plan 50-year-old man with known coronary disease with stenting in the right coronary artery in the remote past and more recent stenting by his atomic physics professor in [place] couple of years ago. He has not had any recent cardiac instability. He does report some in episodes of unpredictable but nitrate responsive chest pain. His atomic physics professor is aware of these symptoms and has him scheduled for a stress test next week as an outpatient in their office. He was admitted [facility] yesterday with hyperglycemia/DKA because of malfunction of some sort with his insulin pump. It appears that that issue has been resolved successfully. At this point I do not believe the Mr. Daigle requires any additional cardiovascular evaluation while he is here. He is scheduled for an ischemia evaluation next week as I mentioned in his established atomic physics professor office. Abelardo Petit MD MERGED WITH [facility] History of Present Illness History of Present Illness Consult date/time: Date of service: 11/27/20 15:19 Reason For Visit: DKA, ESRD, CHEST PAIN Narrative: This is a 50-year-old man known to us who has a long history of coronary artery disease who was admitted to hospital yesterday because of problematic hyperglycemia. He has a long history of diabetes which is insulin dependent and is under the care of workers compensation legal secretary to in more recent years has an being treated with an insulin pump. According to the notes in the chart there was some malfunction in the insulin pump for he was not receiving his medication and consequently he became very hyperglycemic and presented here with diabetic ketoacidosis. That has been treated to standard medical fashion with hydration and insulin and has been resolved. He is now out of the ICU in room 325 appears to be very comfortable and does not offer any cardiovascular complaints. His electrocardiograms on admission did not show any evidence of an acute coronary syndrome his biomarkers do not show any evidence of acute myocardial necrosis. The patient has a history of coronary disease having presented here I believe in 2017 with acute coronary syndrome. We intervened on his distal right coronary artery successfully. He was also known to have some moderate disease in a OM circumflex branch. In the intervening time he dismissed us as his atomic physics professor's and now is been cared for in recent years by [facility] [place], Dr. Ortega. He says he has not had any recent instability. After he left our practice he did have some interventions performed by that practice in 2019. The details of those are not available to me was not involved in his care at that time. The patient is hopeful of being discharged tomorrow as his state of glycemic control comes under better control. It is not clear to me the reason for our consultation to see this gentleman I do not see any evidence that he is primarily here with a cardiac problem and as I mentioned above he dismissed us as his atomic physics professor number of years ago. Review of Systems Constitutional: Constitutional: Reports no additional constitutional complaints Eyes: Eyes: Reports no additional eye complaints ENT: Reports system reviewed and no additional complaints, except as documented Cardiovascular: Cardiovascular: Reports chest pain Comments: Occasional episodes of nonexertional but nitrate responsive chest pain Respiratory: Respiratory: Reports no additional respiratory complaints Gastrointestinal: Gastrointestinal: Reports nausea Genitourinary: Genitourinary: Reports no additional male genitourinary complaints Musculoskeletal: Musculoskeletal: Reports back pain Integumentary/Breasts: Skin/Breast: Reports system reviewed and no additional complaints, except as docu Neurologic: Reports system reviewed and no additional complaints, except as documented Endocrine: Endocrine: Reports as per HPI Hematologic/Lymphatic: Hematologic/Lymphatic: Repo
[2020-11-27 15:30] LABS: Glucose Point of Care 455 (65-105)
[2020-11-27 17:27] LABS: Glucose Point of Care 363 (65-105)
--- NOTE | 2020-11-27 17:29 | PC.NURSE ---
Addendum entered by Aury Slaughter RN 11/27/20 17:34: MD notified of elevated glucose at 1535. MD stated she would come up to see the patient and evaluate insulin needs. MD has not come to patient room at this time. Original Note: Patient changed site of insulin pump at 1630. Insulin pump now located in left abdomen.
--- NOTE | 2020-11-27 19:55 | PM.IMPN ---
Progress Note: A&P Assessment and Plan (1) DKA (diabetic ketoacidosis): Qualifiers: Diabetes mellitus complication detail: without coma Diabetes mellitus type: other specified (including FABIENNE) Qualified Code(s): E13.10 - Other specified diabetes mellitus with ketoacidosis without coma Code(s): E11.10 - Type 2 diabetes mellitus with ketoacidosis without coma Status: Acute Assessment and Plan: Continue with DKA protocol except for no IV fluids. Patient is on peritoneal dialysis nightly. Patient's anion gap is closed. Will check another BMP. He has BMP every 4 hours. The patient has a DEXcom. The patient typically has an insulin but stated that his blood sugars have been in the 2 and 300 since he received this pump. He does see the historic preservationist at [facility] outpatient services. Will check another A1c. personal development educator consult was greatly be appreciated 11/27/20 Acidosis has corrected and patient did not have an elevated anion gap. He was weaned from the drip rapidly and started on basal insulin. I have discussed with him restarting his own insulin pump and insure that is working properly prior to discharge. We will continue current care with close glucose monitoring anticipate discharge tomorrow (2) Obstructive sleep apnea: Code(s): G47.33 - Obstructive sleep apnea (adult) (pediatric) Status: Acute Assessment and Plan: I did order a CPAP for the patient. The patient stated that he uses it sometimes but not always. 11/27/20 Patient refuses to use CPAP (3) Essential hypertension: Code(s): I10 - Essential (primary) hypertension Status: Chronic Assessment and Plan: Once the patient is able to start eating we can continue with his home medications. At this time I p.r.n. hydralazine. 11/27/20 Patient continues to have elevated blood pressure despite continuation of home medications. His clonidine 0.1 t.i.d. has been increased to 0.2 t.i.d. will monitor inpatient to make sure he does not have any bradycardia and that he tolerates the medication change. (4) Coronary artery disease: Code(s): I25.10 - Atherosclerotic heart disease of [place] coronary artery without angina pectoris Status: Acute Assessment and Plan: patient is on Plavix is he has multiple stents. Continue with atorvastatin and Zetia. (5) Anemia in chronic kidney disease: Code(s): N18.9 - Chronic kidney disease, unspecified; D63.1 - Anemia in chronic kidney disease Status: Acute Assessment and Plan: Patient is at his baseline. (6) Hyperlipidemia: Code(s): E78.5 - Hyperlipidemia, unspecified Status: Chronic Assessment and Plan: Continue with atorvastatin and Zetia he is able to start taking in p.o. intake. (7) History of DVT (deep vein thrombosis): Code(s): Z86.718 - Personal history of other venous thrombosis and embolism Status: Acute Assessment and Plan: Continue with home medications. (8) End stage renal disease on dialysis: Code(s): N18.6 - End stage renal disease; Z99.2 - Dependence on renal dialysis Status: Acute Assessment and Plan: Patient does peritoneal dialysis nightly nephrology has been consulted. Patient is not on renal transplant list due to his obesity. 11/27/20 pt continued on PD at night, nephro following Time Spent With Patient Time: Greater than 35 minute spent with this patient today reviewing insulin pump reading, correct use of pump, and plan of care in addition a physical examination, assessment and orders placed Time with patient: Greater than 35 minutes Subjective Date/time seen: 11/27/20 19:55 Long discussion with patient regarding use of insulin pump. This has been titrated by his historic preservationist and he will give himself another bolus tonight at 10:00 p.m. to try to lower his basal glucose level. We will follow-up tomorrow to ensure that the pump is working properly prior t
[2020-11-27] MEDS: FAMOTIDINE 20 MG TABLET 40 MG PO (20:44)
[2020-11-27] MEDS: ATORVASTATIN 40 MG TABLET 80 MG PO (20:44)
[2020-11-27] MEDS: cloNIDine HCL 0.2 MG TABLET PO (20:47)
[2020-11-27 21:11] LABS: Glucose Point of Care 314 (65-105)
[2020-11-28 05:55] LABS: Hematocrit 28.4 % (42.0-52.0); Hemoglobin 10.1 g/dL (14.0-18.0); Mean Corpuscular HGB Conc 35.6 g/dl (32-36); Mean Corpuscular Hemoglobin 34.1 pg (26-34); Mean Corpuscular Volume 95.9 fl (80-100); Mean Platelet Volume 9.3 fl (7.4-10.4); Platelet Count Result 157 k/mm3 (150-375); Red Blood Count 2.96 M/mm3 (4.6-6.20); Red Cell Distribution Width 13.2 % (11.5-14.5); White Blood Count 4.4 K/mm3 (4.5-10.0)
[2020-11-28 06:00] VITALS: BP 154/38; PULSE 51; RESP 16; TEMP 36.4; O2SAT 98
[2020-11-28 06:11] LABS: Alanine Aminotransferase 55 U/L (4-50); Albumin Level 3.5 g/dL (3.5-5.1); Alkaline Phosphatase 89 U/L (38-126); Anion Gap 6 mmol/L (8-16); Aspartate Amino Transferase 47 U/L (17-59); Bilirubin,Total 0.4 mg/dL (0.2-1.3); Blood Urea Nitrogen 68 mg/dL (9-20); Carbon Dioxide 32 mmol/L (22-30); Chloride 96 mmol/L (98-107); Estimated CRCL calculation 21 ml/min; Estimated Glomerular Filt Rate 12; Glucose 228 mg/dL (75-110); Magnesium 2.1 mg/dL (1.6-2.3); Potassium 3.7 mmol/L (3.4-5.0); Sodium 134 mmol/L (137-145)
[2020-11-28] MEDS: cloNIDine HCL 0.2 MG TABLET PO (06:33)
[2020-11-28] MEDS: hydrALAZINE HCL 50 MG TABLET 100 MG PO ×2 (06:33→14:24)
[2020-11-28 07:51] LABS: Glucose Point of Care 154 (65-105)
[2020-11-28] MEDS: MELOXICAM 7.5 MG TABLET PO (08:56)
[2020-11-28] MEDS: RANOLAZINE 500 MG TAB.ER.12H PO (08:56)
[2020-11-28] MEDS: CALCIUM ACETATE 667 MG TABLET PO ×2 (08:56→12:08)
[2020-11-28] MEDS: ASPIRIN 81 MG CHEWABLE TABLET PO (08:56)
[2020-11-28 08:57] VITALS: PULSE 60
[2020-11-28] MEDS: METOPROLOL TARTRATE 50 MG TAB 100 MG PO (08:57)
[2020-11-28] MEDS: CLOPIDOGREL BISULFATE 75 MG TABLET PO (08:57)
[2020-11-28] MEDS: valACYclovir HCL 500 MG TABLET PO ×2 (08:57→12:08)
[2020-11-28] MEDS: FUROSEMIDE 80 MG TABLET PO (08:58)
[2020-11-28] MEDS: LORATADINE 10 MG TABLET PO (08:58)
[2020-11-28] MEDS: calcitrioL 0.25 MCG CAPSULE PO (08:58)
[2020-11-28] MEDS: PANTOPRAZOLE 40 MG TABLET PO (08:58)
[2020-11-28] MEDS: EZETIMIBE 10 MG TABLET PO (08:59)
[2020-11-28] MEDS: ISOSORBIDE MONONITRATE 30 MG TAB.ER.24H PO (08:59)
[2020-11-28] MEDS: ENOXAPARIN 30 MG/0.3 ML SYRINGE SUB-Q (09:00)
--- NOTE | 2020-11-28 09:29 | PM.PNNEP ---
Progress Note: A&P Assessment and Plan (1) End-stage renal disease on peritoneal dialysis: Code(s): N18.6 - End stage renal disease; Z99.2 - Dependence on renal dialysis Status: Acute Assessment and Plan: Tiffanie has end-stage renal disease due to diabetes and hypertension. He got dialysis last night and did well. He had about 600cc of fluid taken off. He still makes some urine. He was seen at 9:00 a.m. (2) DKA (diabetic ketoacidosis): Qualifiers: Diabetes mellitus complication detail: without coma Diabetes mellitus type: other specified (including FABIENNE) Qualified Code(s): E13.10 - Other specified diabetes mellitus with ketoacidosis without coma Code(s): E11.10 - Type 2 diabetes mellitus with ketoacidosis without coma Status: Acute Assessment and Plan: The patient had DKA. Resolved. Back on the insulin pump. (3) Essential hypertension: Code(s): I10 - Essential (primary) hypertension Status: Chronic Assessment and Plan: The patient has hypertension. His blood pressure is a bit high. Will see how he does back on dialysis. He is on clonidine, hydralazine, and metoprolol. Add amlodipine. (4) Hyponatremia: Code(s): E87.1 - Hypo-osmolality and hyponatremia Status: Acute Assessment and Plan: Sodium level is low with water drinking. (5) Obstructive sleep apnea: Code(s): G47.33 - Obstructive sleep apnea (adult) (pediatric) Status: Acute Assessment and Plan: The patient is not consistent in using his CPAP machine. (6) Coronary artery disease: Code(s): I25.10 - Atherosclerotic heart disease of [place] coronary artery without angina pectoris Status: Acute Assessment and Plan: He is having no chest pain. Subjective Date/time seen: 11/28/20 09:29 Interval history: Patient is feeling okay today. Sugars came down nicely with the insulin pump. He was on dialysis last night and did well. Has no chest pain or shortness of Breath Review of Systems Cardiovascular: Cardiovascular: Reports no additional cardiovascular complaints Respiratory: Respiratory: Reports no additional respiratory complaints Gastrointestinal: Gastrointestinal: Reports no additional gastrointestinal complaints Genitourinary: Genitourinary: Reports no additional male genitourinary complaints Exam Narrative: Exam Narrative: WDWN in NAD skin no rash head ncat lungs clear cor reg no rub abd BS+ nontender and soft ext no edema. Objective Data Vital Signs Vital Signs: Vital Signs - 24 hr 11/27/20 10:00 11/27/20 12:38 11/27/20 14:00 Temperature 36.8 C Pulse Rate 63 62 Respiratory Rate 14 16 Blood Pressure 143/58 H 155/57 H 165/51 H Pulse Oximetry 95 98 11/27/20 20:00 11/27/20 20:43 11/27/20 21:00 Temperature 36.9 C Pulse Rate 62 62 Respiratory Rate 16 Blood Pressure 165/51 H Pulse Oximetry 100 11/27/20 21:23 11/27/20 22:00 11/28/20 06:00 Temperature 36.1 C L 36.4 C Pulse Rate 56 L 57 L 51 L Respiratory Rate 16 16 16 Blood Pressure 184/49 H 154/38 H Pulse Oximetry 97 100 98 11/28/20 08:57 Temperature Pulse Rate 60 Respiratory Rate Blood Pressure Pulse Oximetry Intake/Output Intake/Output: Intake & Output 11/25/20 11/26/20 11/27/20 11/28/20 23:59 23:59 23:59 23:59 Intake Total 1100 2040 740 Output Total 1200 1400 Balance 1100 840 -660 Meds/Results Medications: Active Medications Generic Name Dose Route Start Last Admin Trade Name Adalbertoq PRN Reason Stop Dose Admin Acetaminophen 650 mg 11/27/20 12:46 11/27/20 13:03 Acetaminophen 325 Mg Tablet PO 650 mg Q6H PRN Administration Mild Pain (1-3) or Fever Aspirin 81 mg 11/27/20 09:00 11/28/20 08:56 Aspirin 81 Mg Chewable Tablet PO 81 mg DAILY ASHLEY Administration Atorvastatin Calcium 80 mg 11/27/20 21:00 11/27/20 20:44 Atorvastatin 40 Mg Tablet PO 80 mg HS ASHLEY Admi
[2020-11-28] MEDS: amLODIPine BESYLATE 2.5 MG TABLET PO (10:22)
[2020-11-28 11:44] LABS: Glucose Point of Care 131 (65-105)
[2020-11-28 14:00] VITALS: BP 145/56; PULSE 54; RESP 18; TEMP 36.8; O2SAT 99
--- NOTE | 2020-11-28 16:03 | PM.DS ---
DS: Admitting Diagnosis Admitting Diagnosis Admitting Diagnosis: DKA BEN Morbid obesity Hypertension End-stage renal disease on peritoneal dialysis Hyperlipidemia Coronary artery disease Anemia of chronic disease DS: Discharge Diagnosis Discharge Diagnosis (1) DKA (diabetic ketoacidosis): Qualifiers: Diabetes mellitus complication detail: without coma Diabetes mellitus type: other specified (including FABIENNE) Qualified Code(s): E13.10 - Other specified diabetes mellitus with ketoacidosis without coma Code(s): E11.10 - Type 2 diabetes mellitus with ketoacidosis without coma Status: Acute Assessment and Plan: Continue with DKA protocol except for no IV fluids. Patient is on peritoneal dialysis nightly. Patient's anion gap is closed. Will check another BMP. He has BMP every 4 hours. The patient has a DEXcom. The patient typically has an insulin but stated that his blood sugars have been in the 2 and 300 since he received this pump. He does see the mill labor supervisor at [facility] outpatient services. Will check another A1c. breastfeeding educator consult was greatly be appreciated 11/27/20 Acidosis has corrected and patient did not have an elevated anion gap. He was weaned from the drip rapidly and started on basal insulin. I have discussed with him restarting his own insulin pump and insure that is working properly prior to discharge. We will continue current care with close glucose monitoring anticipate discharge tomorrow (2) Obstructive sleep apnea: Code(s): G47.33 - Obstructive sleep apnea (adult) (pediatric) Status: Acute Assessment and Plan: I did order a CPAP for the patient. The patient stated that he uses it sometimes but not always. 11/27/20 Patient refuses to use CPAP (3) Essential hypertension: Code(s): I10 - Essential (primary) hypertension Status: Chronic Assessment and Plan: Once the patient is able to start eating we can continue with his home medications. At this time I p.r.n. hydralazine. 11/27/20 Patient continues to have elevated blood pressure despite continuation of home medications. His clonidine 0.1 t.i.d. has been increased to 0.2 t.i.d. will monitor inpatient to make sure he does not have any bradycardia and that he tolerates the medication change. (4) Coronary artery disease: Code(s): I25.10 - Atherosclerotic heart disease of [place] coronary artery without angina pectoris Status: Acute Assessment and Plan: patient is on Plavix is he has multiple stents. Continue with atorvastatin and Zetia. (5) Anemia in chronic kidney disease: Code(s): N18.9 - Chronic kidney disease, unspecified; D63.1 - Anemia in chronic kidney disease Status: Acute Assessment and Plan: Patient is at his baseline. (6) Hyperlipidemia: Code(s): E78.5 - Hyperlipidemia, unspecified Status: Chronic Assessment and Plan: Continue with atorvastatin and Zetia he is able to start taking in p.o. intake. (7) History of DVT (deep vein thrombosis): Code(s): Z86.718 - Personal history of other venous thrombosis and embolism Status: Acute Assessment and Plan: Continue with home medications. (8) End stage renal disease on dialysis: Code(s): N18.6 - End stage renal disease; Z99.2 - Dependence on renal dialysis Status: Acute Assessment and Plan: Patient does peritoneal dialysis nightly nephrology has been consulted. Patient is not on renal transplant list due to his obesity. 11/27/20 pt continued on PD at night, nephro following DS: Summary Hospital Course Reason for hospitalization: Hyperglycemia Hospital Course: 50-year-old male with multiple comorbidities and frequent admissions for hyperglycemia is brought to the emergency room with blood glucose greater than 600. He was found to be acidotic and admitted to the ICU for treatment of DKA. Patient responded rapidly to intervention an
== END 2020-11-28 16:50 | disposition home or self-care (01) | DRG 637 ==
LOC: ANHED 17:35 → ANHICU 22:46 → ANH3MEDSUR 11-28 15:56 → ANHICU 12-02 09:58
PROVIDERS: Emergency Medicine; Internal Medicine; Nurse Practitioner; Admitting Provider Family Medicine; Emergency Provider Emergency Medicine; PCP Family Medicine; Visit Provider Hospitalist
DX: E10.10 Type 1 diabetes mellitus with ketoacidosis without coma (principal); N18.6 End stage renal disease; I13.2 Hypertensive heart and chronic kidney disease with heart failure and with stage 5 chronic kidney disease, or end stage renal disease; E87.1 Hypo-osmolality and hyponatremia; I50.9 Heart failure, unspecified; E10.22 Type 1 diabetes mellitus with diabetic chronic kidney disease; G47.33 Obstructive sleep apnea (adult) (pediatric); E78.5 Hyperlipidemia, unspecified; E10.40 Type 1 diabetes mellitus with diabetic neuropathy, unspecified; E10.319 Type 1 diabetes mellitus with unspecified diabetic retinopathy without macular edema; I25.10 Atherosclerotic heart disease of native coronary artery without angina pectoris; Z86.718 Personal history of other venous thrombosis and embolism; Z79.01 Long term (current) use of anticoagulants
CPT/HCPCS: 36415; 36600; 71045; 80048; 80053; 81001; 82010; 82375; 82805; 82947; 82948; 83036; 83050; 83735; 84100; 84484; 85025; 85027; 85610; 85730; 87040; 90945; 93005; 96374; 99285; A9270; J0360; J1650; J1815; J7120

== ENCOUNTER → 2021-01-06 11:07 | Outpatient (CLI) | payer MEDICARE, MEDICAID, SELFPAY ==
--- NOTE | ~2021-01-06 | XR_ITS ---
XR knee LT min 4V DATE: 01/06/2021 11:53 INDICATION: Bilateral knee pain TECHNIQUE: 4 views COMPARISON: None FINDINGS: There is severe loss of medial compartment joint space height and some sclerosis and some a rticular cystic change of the medial femoral condyle and medial tibial plateau, consistent with sever e medial compartment osteoarthritis. Lateral compartment joint space is well preserved. There is slight periarticular spurring of the ybarra lla. No fracture or dislocation or joint effusion. No periosteal reaction or bone destruction. Femoral, popliteal and trifurcation artery calcifications. IMPRESSION: Severe medial compartment osteoarthritis Mild patellofemoral compartment osteoarthritis Reviewed, dictated and finalized at location B.
--- NOTE | ~2021-01-06 | XR_ITS ---
XR knee RT min 4V DATE: 01/06/2021 11:53 INDICATION: Bilateral knee pain TECHNIQUE: 4 views COMPARISON: None FINDINGS: There is minimal periarticular spurring of the patella consistent with mild patellofemoral osteoarthritis. There is minimal spurring of the medial tibial plateau consistent with mild medial co mpartment osteoarthritis. Mild loss of height of medial compartment joint space. Knee joint spaces are relatively preserved oth erwise. Probable old fracture deformity of the mid femoral shaft. No recent fracture or dislocation or joint effusion. No periosteal reaction or bone destruction is ev ident. Femoral and popliteal and trifurcation artery calcifications. IMPRESSION: Mild osteoarthritis at the patellofemoral and medial compartments Reviewed, dictated and finalized at location B.
== END ==
PROVIDERS: PCP Family Medicine; Visit Provider Nurse Practitioner Adult Health
DX: M17.0 Bilateral primary osteoarthritis of knee (principal)
CPT/HCPCS: 73564

== ENCOUNTER 2021-01-11 08:14 | Observation (INO) | payer MEDICARE, MEDICAID, SELFPAY ==
[2021-01-11] VITALS (19 sets, daily range): BP systolic 139–203; BP diastolic 53–74; PULSE 60–81; RESP 12–22; TEMP 35.8–36.9; O2SAT 94–98; BMI 41.3
--- NOTE | ~2021-01-11 | CT_ITS ---
EXAMINATION: CT abdomen pelvis wo con DATE: 01/11/2021 09:09 INDICATION: Abdominal pain TECHNIQUE: Computed tomography (CT) of the abdomen and pelvis was performed without intravenous contr ast. The dose-length product (DLP) was 1499.02 mGy-cm. Automated exposure control and iterative recon struction technique were employed. COMPARISON: 06/15/2017 FINDINGS: The heart size is normal. Calcified atherosclerosis is noted. There is mild atelectasis of the visualized lung bases. The liver, spleen, pancreas, and adrenal glands are normal. A stone is pre sent in the nondistended gallbladder. The kidneys are unremarkable. There is calcified atherosclerosi s of the aorta and many of the other arteries. No pathologically enlarged abdominal or pelvic lymph n odes are identified. There is no free intraperitoneal gas or evidence of bowel obstruction. There has been interval insertion of a catheter into the left lower quadrant, likely for peritoneal dialysis. There is moderate lumbar spondylosis. IMPRESSION: 1. No CT correlate for the patient's symptoms. Reviewed, dictated and finalized at location A.
--- NOTE | ~2021-01-11 | XR_ITS ---
EXAMINATION: XR chest 2V DATE: 01/11/2021 08:51 INDICATION: Chest pain. TECHNIQUE: Frontal and lateral views of the chest were obtained. COMPARISON: Chest single view 11/26/2020 FINDINGS: There is mild atelectasis in left lower lung zone. No pleural effusion or pneumothorax. The heart size is normal. An electronic device overlies left chest. IMPRESSION: 1. Mild atelectasis in left lower lung zone. Reviewed, dictated and finalized at location B.
--- NOTE | 2021-01-11 08:23 | ECG_ITS ---
Measurements Intervals [place] Rate: 80 P: 37 AK: 197 QRS: -43 QRSD: 134 T: 86 QT: 418 QTc: 483 Interpretive Statements SINUS RHYTHM LEFT AXIS DEVIATION INTRAVENTRICULAR CONDUCTION DELAY LEFT VENTRICULAR HYPERTROPHY AND ST-T CHANGE CANNOT RULE OUT SEPTAL INFARCT, AGE INDETERMINATE BASELINE ARTIFACT- AVR, AVL, AVF, V1-V2 ABNORMAL ECG Electronically Signed On 01-11-2021 9:32:38 CDT by Doc Dorantes D.O.
--- NOTE | 2021-01-11 08:30 | ED.CHESTPAIN ---
HPI - Chest Pain General Chief Complaint: Chest Pain Stated Complaint: CP Source: RN notes reviewed History of Present Illness HPI narrative: Patient presents to emergency department from home for chest pain. Patient states that symptoms began approximate 4 AM this morning. Pain is located across the bilateral lower chest not radiate described as a pressure in nature associated with one episode of nausea and vomiting still is a feeling of shortness of breath. Patient states he does have cardiac history with 4 stents he denies any fevers or chills diarrhea or any other symptoms patient states that he is on peritoneal dialysis and followed by Dr. Reyes states that symptoms again while he is on his peritoneal dialysis and stopped approximately 4 AM states he is not taking any insulin since that time Related Data Home Medications Medication Instructions Recorded Confirmed aspirin 81 mg PO DAILY 06/04/19 11/26/20 calcitriol 0.25 mcg PO QAM 06/04/19 11/26/20 clopidogrel 75 mg PO DAILY 06/04/19 11/26/20 ergocalciferol (vitamin D2) 50,000 unit PO WEEKLY 06/04/19 11/26/20 [Vitamin D2] hydralazine 100 mg PO Q8H 06/04/19 11/26/20 nitroglycerin 0.4 mg SUBLINGUAL Q5-15M PRN 06/04/19 11/26/20 ezetimibe [Zetia] 10 mg PO DAILY 09/09/19 11/26/20 isosorbide mononitrate 30 mg PO DAILY 09/09/19 11/26/20 metoprolol tartrate 100 mg PO Q12H 09/09/19 11/26/20 ranolazine 500 mg tablet,extended 500 mg PO Q12H 09/24/19 11/26/20 release,12 hr cetirizine [All Day Allergy 10 mg PO DAILY 12/26/19 11/26/20 (cetirizine)] furosemide 80 mg PO BID 02/02/20 11/26/20 calcium acetate(phosphat bind) 667 mg PO QID 03/31/20 11/26/20 famotidine 40 mg PO HS 03/31/20 11/26/20 subcutaneous insulin pump #1 ea 08/24/20 11/26/20 atorvastatin 80 mg PO HS 11/26/20 11/26/20 colchicine [Colcrys] 0.6 mg PO QMWF 11/26/20 11/26/20 cyclobenzaprine 10 mg PO Q12H PRN 11/26/20 11/26/20 doxycycline hyclate 50 mg PO BID 11/26/20 11/26/20 meloxicam 7.5 mg PO BID PRN 11/26/20 11/26/20 omeprazole 20 mg PO QAM 11/26/20 11/26/20 valacyclovir 500 mg PO TID 11/26/20 11/26/20 Allergies Allergy/AdvReac Type Severity Reaction Status Date / Time allopurinol Allergy Severe Other Verified 01/11/21 08:27 iohexol Allergy Severe Difficulty Verified 01/11/21 08:27 [From CONTRAST - CT, XRAY] Breathing ticagrelor Allergy Intermediate Rash Verified 01/11/21 08:27 Review of Systems Review of Systems: Narrative: Gen.: Denies fevers or chills Eyes: Denies eye pain or visual change ENT: Denies congestion Respiratory: Reports shortness of breath CV: See HPI GI: Reports upper abdominal pain nausea vomiting denies diarrhea Musculoskeletal: Denies back pain or muscle pain Neuro: Denies numbness, tingling, weakness or focal weakness Skin: Denies rash Except as documented, all other systems reviewed and negative PMFSH Past Medical History Medical History Anemia in chronic kidney disease Anxiety Arthritis Bronchitis Congestive heart failure Echocardiogram May 2017 EF of 50% with hypokinetic apical, inferior and basal inferior lateral segment, mild enlargement of left atrium. Coronary artery disease With history of several stents. Followed by [facility]. Deep venous thrombosis Chronic right popliteal DVT. Diabetic peripheral neuropathy Diabetic retinopathy End-stage renal disease on peritoneal dialysis Essential hypertension Fracture left lower ext Gastroesophageal reflux disease Gout Hyperlipidemia Obstructive sleep apnea With inconsistent CPAP use. Paroxysmal atrial fibrillation The patient denies Secondary hyperparathyroidism of renal origin Seizure X1 with etiology unknown Type 1 diabetes mellitus Onset around age 13. Surgical History Surgical History History of anterior cruciate ligament surgery (~2000) Left knee History of appendectomy (~2
[2021-01-11 08:34] LABS: Basophils Percent Auto 0.4 % (0.2-1.2); Eosinophils Absolute Auto 0.1 K/mm3 (0-0.3); Eosinophils Percent Auto 1.3 % (0-4.4); Hematocrit 30.9 % (42.0-52.0); Hemoglobin 10.6 g/dL (14.0-18.0); Immature Granulocyte Absolute 0.02 K/mm3 (0.00-0.031); Immature Granulocyte Percent A 0.4 % (0-0.5); Lymphocytes Absolute Auto 0.64 K/mm3 (0.9-3.2); Lymphocytes Percent Auto 12.1 % (18.3-44.2); Mean Corpuscular HGB Conc 34.3 g/dl (32-36); Mean Corpuscular Hemoglobin 33.7 pg (26-34); Mean Corpuscular Volume 98.1 fl (80-100); Mean Platelet Volume 9.6 fl (7.4-10.4); Monocytes Absolute Auto 0.4 K/mm3 (0.1-0.6); Monocytes Percent Auto 7.8 % (2.6-8.5); Neutrophils Absolute Auto 4.1 K/mm3 (1.3-6.7); Platelet Count Result 163 k/mm3 (150-375); Red Blood Count 3.15 M/mm3 (4.6-6.20); Red Cell Distribution Width 12.6 % (11.5-14.5); White Blood Count 5.3 K/mm3 (4.5-10.0)
[2021-01-11 08:44] LABS: INR 0.9; Partial Thromboplastin Time 23.5 SECONDS (22.3-36.8); Prothrombin Time 13.1 Seconds (11.1-14.7)
[2021-01-11 08:48] LABS: Alanine Aminotransferase 49 U/L (4-50); Albumin Level 3.8 g/dL (3.5-5.1); Alkaline Phosphatase 118 U/L (38-126); Aspartate Amino Transferase 41 U/L (17-59); Bilirubin,Total 0.6 mg/dL (0.2-1.3); Lipase 96 U/L (23-300)
[2021-01-11 08:56] LABS: Alanine Aminotransferase 48 U/L (4-50); Albumin Level 3.9 g/dL (3.5-5.1); Alkaline Phosphatase 115 U/L (38-126); Anion Gap 10 mmol/L (8-16); Aspartate Amino Transferase 44 U/L (17-59); Bilirubin,Total 0.7 mg/dL (0.2-1.3); Blood Urea Nitrogen 72 mg/dL (9-20); Calcium 8.6 mg/dL (8.4-10.2); Carbon Dioxide 22 mmol/L (22-30); Chloride 99 mmol/L (98-107); Estimated CRCL calculation 19 ml/min; Estimated Glomerular Filt Rate 10; Potassium 4.9 mmol/L (3.4-5.0); Sodium 131 mmol/L (137-145); Troponin I < 0.012 ng/mL (0.000-0.034)
[2021-01-11 09:11] LABS: Glucose 734 mg/dL (75-110)
[2021-01-11] MEDS: INSULIN HUMAN REGULAR (*BKC) 100 UNITS/ML 10 UNITS IV PUSH (09:41)
[2021-01-11 10:30] LABS: Glucose Point of Care > 500 mg/dl (65-105)
--- NOTE | 2021-01-11 10:56 | PC.NURSE ---
called imu to give report. state rn unavailable for report
[2021-01-11 10:57] LABS: Glucose 560 mg/dL (75-110)
--- NOTE | 2021-01-11 11:08 | PC.NURSE ---
REPORT CALLED TO ZULEYMA ROLAND. PER DR PERERA WAIT TO TAKE PT TO ROOM UNTIL INFORM HOSPITALIST PT GLUCOSE
--- NOTE | 2021-01-11 11:45 | PC.NURSE ---
DR PERERA STATES PT IS READY TO BE TRANSPORTED TO IMU. NO NEW ORDERS. CALLED IMU NOTIFIED PT EN ROUTE.
--- NOTE | 2021-01-11 12:00 | ADMGEN ---
This patient, Juvenal Daigle Jr., was admitted to IMU Room 205-01. Patient/family oriented to hospital policies and general routines including ID bracelet, bed and alarms, visiting hours, pain management, procedures, bathroom and other care routines, personal items, smoking policy, room service/diet, and visiting hours. Information on how to activate the Rapid Response Team has been discussed. Patient/Family are encouraged to report perceived risks to care and to ask questions if they do not understand what they are told or what they should do.
[2021-01-11 12:37] LABS: Glucose Point of Care 409 mg/dl (65-105)
[2021-01-11 13:50] LABS: Troponin I 0.052 ng/mL (0.000-0.034)
[2021-01-11 14:03] LABS: Glucose Point of Care 439 mg/dl (65-105)
--- NOTE | 2021-01-11 14:26 | PC.NURSE ---
Patient turned off home insulin pump and is requesting to use hospital insulin for administration at this time.
[2021-01-11] MEDS: INSULIN ASPART (*BKC) 100 UNITS/ML SUB-Q ×2 (14:34→18:14)
[2021-01-11] MEDS: INSULIN GLARGINE (*BKC) 100 UNITS/ML 70 UNITS SUB-Q (14:35)
--- NOTE | 2021-01-11 15:01 | PM.CNNEP ---
Assessment and Plan Assessment and plan (1) End stage renal disease on dialysis: Code(s): N18.6 - End stage renal disease; Z99.2 - Dependence on renal dialysis Status: Acute Additional Plan End-stage renal disease Diabetes mellitus type 2 with nephropathy Benign essential hypertensive renal disease with renal failure Anemia of chronic kidney disease Secondary hyperparathyroidism History of coronary artery disease Came in with chest pain chest pain at presentation Shortness of breath at presentation: Chest x-ray Fluid retention Plan: -chest pain and shortness of breath. Cardiac workup as per primary care team orders -dialysis. Will continue with peritoneal dialysis. Will supervise. -important that he maintains sugar control in order that his ultrafiltration with peritoneal dialysis improved. -follow-up for ESRD and related History of Present Illness Reason for Consult Consult date: 01/11/21 Reason for consult: end stage renal disease Chief Complaint Chief complaint: chest pain/hyperglycemia/chronic renal failure History of Present Illness Narrative: 51-year-old white male who has type 1 diabetes mellitus with NSAID nephropathy, hypertensive renal disease. History of CHF and obstructive sleep apnea on CPAP. Patient developed chest pain which woke him up from sleep. He had some associated emesis and shortness of breath. Chest pain is central, nonradiating, lasted several hours, no aggravating or relieving factors but had associated shortness of breath. Does not feel chills or cough. He had 1 bout of emesis. Last night he fought that he had some fluid retention problems and did a manual drain. He put out about 2300 mL of fluid. He is using 2.5% Dianeal solution. Incidentally noted is also presence of hyperglycemia. His gain about 6 lb of body weight over the last to 3 days. He has bilateral lower extremity swelling. Review of Systems Review of Systems: All systems reviewed & are unremarkable except as noted in HPI and below PMFSH Past Medical History Medical History Anemia in chronic kidney disease Anxiety Arthritis Bronchitis Congestive heart failure Echocardiogram May 2017 EF of 50% with hypokinetic apical, inferior and basal inferior lateral segment, mild enlargement of left atrium. Coronary artery disease With history of several stents. Followed by [facility]. Deep venous thrombosis Chronic right popliteal DVT. Diabetic peripheral neuropathy Diabetic retinopathy End-stage renal disease on peritoneal dialysis Essential hypertension Fracture left lower ext Gastroesophageal reflux disease Gout Hyperlipidemia Obstructive sleep apnea With inconsistent CPAP use. Paroxysmal atrial fibrillation The patient denies Secondary hyperparathyroidism of renal origin Seizure X1 with etiology unknown Type 1 diabetes mellitus Onset around age 13. Surgical History Surgical History History of anterior cruciate ligament surgery (~2000) Left knee History of appendectomy (~2006) History of arthroscopy of left knee History of bilateral carpal tunnel release Right 05/03/2018. Left 06/02/2018. History of cardiac catheterization :August 2019 demonstrated patent stents with 40% stenosis of 1 vessel with no stents or angioplasty performed per patient report. :November 2018 at [facility] - stent x3. :March 2017 demonstrating mild diffuse coronary disease 80% lesion small sub branch of obtuse marginal 1 and 90% stenosis distal RCA into the origin of the PDA with PTCA and stent to the RPDA/distal RCA performed by Dr. Petit. History of cataract extraction With lens implant History of open reduction and internal fixation (ORIF) procedure (~1982) Left lower extremity fracture. And the right hip pinning when he was in the 8th grade Family History Family History (Reviewed
[2021-01-11 15:08] LABS: Troponin I 0.068 ng/mL (0.000-0.034)
[2021-01-11 15:21] LABS: Glucose Point of Care 407 mg/dl (65-105)
--- NOTE | 2021-01-11 16:03 | PM.CNCAR ---
Assessment and Plan Additional Plan This is a 50-year-old man known to have coronary disease with previous revascularization and also significant who end-stage renal disease requiring renal replacement therapy with peritoneal dialysis. He enters the hospital with a variety of symptoms which always raise concern in this man about the possibility of acute coronary syndrome. His symptoms and Myoview are atypical and there is no objective evidence of an acute coronary syndrome. Obviously his troponin levels will always be slightly abnormal as I have mentioned in several previous notes at times I have seen this gentleman in consultation here. I do not feel compelled to bring him to the laboratory apparatus glass blower here at [place] is there is nothing emergent going on. He is scheduled to have a follow-up angiogram in about a week from now at [facility] to investigate some abnormalities on the nuclear stress tests that were done at that hospital. For the time being I would continue his cardiac regimen that he is currently taking and if he does not rule in for acute coronary syndrome he can be dismissed with ongoing follow-up by his chain dyer. As I mentioned in my note he does not wish to receive care from our practice here at [facility] Abelardo Petit MD [facility] History of Present Illness History of Present Illness Consult date/time: 01/11/21 16:03 Consult reason: chest pain Reason For Visit: chest pain/hyperglycemia/chronic renal failure Narrative: This is a 50-year-old man with a long history of coronary disease and renal failure who I am seeing at the request of the hospital because of chest pain with which he was admitted to the hospital this morning. This patient has had numerous admissions with hyperglycemia, diabetic ketoacidosis and also episodes of chest pain he was in his usual state of health at home this morning when about 4:00 a.m. in the morning he started to experience symptoms of chest pain and fullness in the abdomen. He does nocturnal peritoneal dialysis and he thought he probably just too much fluid in his abdomen and so he drained out earlier than usual. He then also experienced some nausea he drank some extra water and then vomited the water as well as the contents of his meal from the previous night. Following that his symptoms did improve somewhat. That did improve the symptoms but they did not subside altogether he continued to experience symptoms of dull central chest pain and so he called an ambulance and was brought here for evaluation. The patient was seen in the emergency room and admitted to IMU. His electrocardiograms have been reviewed they do not show any interval changes to suggest ischemia or injury in comparison to previous tracings and his biomarkers are negative for evidence of acute coronary syndrome. He does have mild low level troponin elevation because of end-stage renal disease which of course is to be expected. He is relatively comfortable appearing in IMU now and does not offer any other complaints. The patient is known to have coronary disease dating back to 2017 at which time he underwent angiography because of chest pain and had high-grade stenosis in the distal RCA identified. He also had a moderate lesion in a small sub branch of an obtuse marginal branch at that time. Following successful PCI of the right coronary artery he was followed in our office for a while and then for reasons that he never shared with me he transitioned his care to a different Cardiology practice, [facility] and has been involved with their care for a number of years. He did tell me last time I saw him in the summer of 2019 that his physician and that practice did perform some interventional revascularization in 2019. This was done at [facility] the details of that are not available to me as I dictate this note. He also has had numerous admissions here with diabetic ketoacidosis. He is hyperglycemic this time but
[2021-01-11 18:29] LABS: Glucose Point of Care 378 mg/dl (65-105)
--- NOTE | 2021-01-11 20:21 | PM.IMHP ---
H&P: HPI History of Present Illness Date/Time: 01/11/21 20:21 this is a 50-year-old male patient with a past medical history of coronary artery disease as well as end-stage renal disease on peritoneal dialysis nightly. The patient recently had an abnormal stress test and is scheduled in about a week to go to [facility] for a angiogram. The patient woke up this morning and was having some epigastric discomfort. He had been hooked up to his dialysis through the night. 4:00 a.m. this morning. It was across his lower chest but did not radiate to his arms or his back. He had no fever or chills. No cough. The patient does have a history of having for cardiac stents in the past. Cardiology has been consulted and has already seen the patient. It was noted that they will continue with his current medication regimen and that he should continue to follow-up with his appointment at [facility] for his angiogram next week. Nephrology has also been consulted. The patient is currently hooked up to his peritoneal dialysis. The patient is currently pain-free. The hemoglobin is at his baseline. The patient had his insulin pump on earlier but was taken off because he was lethargic. Patient's blood sugar was 560. I gave him Lantus which was his previous dose he 20 was admitted last time of 70 units of Lantus. Patient's blood sugars now 378. I put him on a sliding scale insulin. We discussed him getting back on his pump maybe tomorrow. Baseline troponin was negative. 3 hour troponin 0.068. Cannot rule out septal infarction age indeterminate. This is comparable to his November EKG. Patient is being admitted to observation status on the date of service of 01/11/2021. Chief Complaint: Chest pain Review of Systems Review of Systems: All systems reviewed & are unremarkable except as noted in HPI and below Constitutional: Constitutional: Reports as per HPI and Reports no additional constitutional complaints Eyes: Eyes: Reports as per HPI and Reports no additional eye complaints ENT: Reports system reviewed and no additional complaints, except as documented and Reports Normal hearing present Cardiovascular: Cardiovascular: Reports no additional cardiovascular complaints Respiratory: Respiratory: Reports no additional respiratory complaints and Reports no additional respiratory complaints Gastrointestinal: Gastrointestinal: Reports as per HPI and Reports no additional gastrointestinal complaints Musculoskeletal: Musculoskeletal: Reports no additional musculoskeletal complaints Integumentary/Breasts: Skin/Breast: Reports system reviewed and no additional complaints, except as docu and Reports as per HPI Neurologic: Reports system reviewed and no additional complaints, except as documented, Reports as per HPI and Reports Normal hearing present Psychiatric: Psychiatric: Reports no additional psychiatric complaints and Reports as per HPI Endocrine: Endocrine: Reports no additional endocrine complaints Hematologic/Lymphatic: Hematologic/Lymphatic: Reports no additional hematologic/lymphatic complaints Allergic/Immunologic: Allergic/Immunologic: Reports no additional allergic/immunologic complaints [facility] Past Medical History Medical History Anemia in chronic kidney disease Anxiety Arthritis Bronchitis Congestive heart failure Echocardiogram May 2017 EF of 50% with hypokinetic apical, inferior and basal inferior lateral segment, mild enlargement of left atrium. Coronary artery disease With history of several stents. Followed by [facility]. Deep venous thrombosis Chronic right popliteal DVT. Diabetic peripheral neuropathy Diabetic retinopathy End-stage renal disease on peritoneal dialysis Essential hypertension Fracture left lower ext Gastroesophageal reflux disease Gout Hyperlipidemia Obstructive sleep apnea With inconsistent CPAP use. Paroxysmal atrial fibrillation The pa
[2021-01-11 21:04] LABS: Glucose Point of Care 404 mg/dl (65-105)
[2021-01-11] MEDS: CALCIUM ACETATE 667 MG TABLET PO (22:36)
[2021-01-11] MEDS: ATORVASTATIN 40 MG TABLET 80 MG PO (22:36)
[2021-01-11] MEDS: COLCHICINE 0.6 MG TABLET PO (22:36)
[2021-01-11] MEDS: DOXYCYCLINE HYCLATE 50 MG CAPSULE PO (22:36)
[2021-01-11] MEDS: ERGOCALCIFEROL 50,000 UNIT CAPSULE 50000 UNITS PO (22:36)
[2021-01-11] MEDS: hydrALAZINE HCL 50 MG TABLET 100 MG PO (22:37)
[2021-01-11] MEDS: RANOLAZINE 500 MG TAB.ER.12H PO (22:37)
[2021-01-11] MEDS: cloNIDine HCL 0.2 MG TABLET PO (22:37)
[2021-01-11] MEDS: FUROSEMIDE 80 MG TABLET PO (22:37)
[2021-01-11] MEDS: METOPROLOL TARTRATE 50 MG TAB 100 MG PO (22:37)
[2021-01-12] VITALS (9 sets, daily range): BP systolic 152–186; BP diastolic 60–62; PULSE 53–65; RESP 14–20; TEMP 36.4–36.6; O2SAT 92–100
[2021-01-12 04:55] LABS: Basophils Percent Auto 0.4 % (0.2-1.2); Eosinophils Absolute Auto 0.3 K/mm3 (0-0.3); Eosinophils Percent Auto 5.8 % (0-4.4); Hematocrit 29.5 % (42.0-52.0); Hemoglobin 10.3 g/dL (14.0-18.0); Immature Granulocyte Absolute 0.02 K/mm3 (0.00-0.031); Immature Granulocyte Percent A 0.4 % (0-0.5); Lymphocytes Absolute Auto 1.27 K/mm3 (0.9-3.2); Lymphocytes Percent Auto 26.5 % (18.3-44.2); Mean Corpuscular HGB Conc 34.9 g/dl (32-36); Mean Corpuscular Hemoglobin 33.3 pg (26-34); Mean Corpuscular Volume 95.5 fl (80-100); Mean Platelet Volume 9.6 fl (7.4-10.4); Monocytes Absolute Auto 0.5 K/mm3 (0.1-0.6); Monocytes Percent Auto 11.3 % (2.6-8.5); Neutrophils Absolute Auto 2.7 K/mm3 (1.3-6.7); Neutrophils Percent Auto 55.6 % (45.5-73.1); Platelet Count Result 175 k/mm3 (150-375); Red Blood Count 3.09 M/mm3 (4.6-6.20); Red Cell Distribution Width 12.1 % (11.5-14.5); White Blood Count 4.8 K/mm3 (4.5-10.0)
[2021-01-12 05:11] LABS: Anion Gap 8 mmol/L (8-16); Blood Urea Nitrogen 58 mg/dL (9-20); Calcium 8.7 mg/dL (8.4-10.2); Carbon Dioxide 28 mmol/L (22-30); Chloride 101 mmol/L (98-107); Estimated CRCL calculation 21 ml/min; Estimated Glomerular Filt Rate 12; Glucose 400 mg/dL (75-110); Potassium 4.1 mmol/L (3.4-5.0); Sodium 137 mmol/L (137-145)
[2021-01-12] MEDS: hydrALAZINE HCL 50 MG TABLET 100 MG PO (06:17)
[2021-01-12] MEDS: cloNIDine HCL 0.2 MG TABLET PO (06:17)
[2021-01-12 08:21] LABS: Glucose Point of Care > 500 mg/dl (65-105)
[2021-01-12] MEDS: LORATADINE 10 MG TABLET PO (10:34)
[2021-01-12] MEDS: EZETIMIBE 10 MG TABLET PO (10:34)
[2021-01-12] MEDS: PANTOPRAZOLE 40 MG TABLET PO (10:34)
[2021-01-12] MEDS: ASPIRIN 81 MG CHEWABLE TABLET PO (10:34)
[2021-01-12] MEDS: CALCIUM ACETATE 667 MG TABLET PO (10:34)
[2021-01-12] MEDS: ISOSORBIDE MONONITRATE 30 MG TAB.ER.24H PO (10:34)
[2021-01-12] MEDS: RANOLAZINE 500 MG TAB.ER.12H PO (10:34)
[2021-01-12] MEDS: amLODIPine BESYLATE 5 MG TABLET 10 MG PO (10:34)
[2021-01-12] MEDS: CLOPIDOGREL BISULFATE 75 MG TABLET PO (10:35)
[2021-01-12] MEDS: FUROSEMIDE 80 MG TABLET PO (10:35)
[2021-01-12] MEDS: DOXYCYCLINE HYCLATE 50 MG CAPSULE PO (10:35)
[2021-01-12] MEDS: calcitrioL 0.25 MCG CAPSULE PO (10:35)
[2021-01-12] MEDS: METOPROLOL TARTRATE 50 MG TAB 100 MG PO (10:35)
[2021-01-12] MEDS: valACYclovir HCL 500 MG TABLET 1000 MG PO (10:36)
[2021-01-12 12:29] LABS: Glucose Point of Care 402 mg/dl (65-105)
--- NOTE | 2021-01-12 13:23 | PM.DS ---
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 when he was finishing his peritoneal dialysis. Patient had substernal chest pain that felt like something was sitting on his chest, denies any radiation of pain. He did have some shortness of breath. He also found his glucose to be elevated he decided to come into the emergency room. Initial vitals showed afebrile, non tachycardic, normal respiratory rate, normal oxygenation on room air, elevated blood pressure 195/68. Initial labs showed Normal white blood cell count, normocytic anemia Hgb 10/Hct 30%. normal coag panel. Hyponatremia at 131. Stable ESRD with Cr 5.90, BUN 72. Hyperglycemia with glucose at 560. Elevated troponins. Patient was admitted into the hospital for chest pain and elevated troponins. Cardiology was consulted Who evaluated the patient and feels he does not have acute ACS in that his chest pain is atypical. The patient has had an abnormal stress test and is scheduled for a cardiac catheterization at [facility] in 1 week 01/21/21 by his [employer] Analysis Technician. Patient is not having any more chest pain at this time. Cardiology has signed off for him to follow-up as an outpatient with his cigar wrapper. Patient has received peritoneal dialysis well he has been here with baseline renal function and electrolytes. His glucose has been elevated. Patient's insulin pump has had in cardiac settings after I talked to the nursing educator. We have now put him back on the correct settings instructed by his registration specialist: 12a-5a 4.4, 5a-8p 1., 8p-12a 4.4. We put him back on his insulin pump and he is getting suggested bolus readings based on his glucose and carb intake with meals. Glucose is now 406. Patient otherwise asymptomatic and stable for discharge at this time. He does have appointment tomorrow with his registration specialist for a follow-up. This will be perfect for further evaluation and monitoring of his glucose readings over the next 24 hours. Told him to come back to emergency room with any worsening chest pain, shortness of breath or any concerning symptoms. The patient understands and agrees the plan all questions answered. (2) Acute hyperglycemia: Code(s): R73.9 - Hyperglycemia, unspecified Status: Acute (3) End stage renal disease on dialysis: Code(s): N18.6 - End stage renal disease; Z99.2 - Dependence on renal dialysis Status: Acute (4) Obstructive sleep apnea: Code(s): G47.33 - Obstructive sleep apnea (adult) (pediatric) Status: Acute (5) Essential hypertension: Code(s): I10 - Essential (primary) hypertension Status: Chronic (6) Coronary artery disease: Code(s): I25.10 - Atherosclerotic heart disease of [place] coronary artery without angina pectoris Status: Acute (7) Congestive heart failure: Code(s): I50.9 - Heart failure, unspecified Status: Acute (8) Anemia in chronic kidney disease: Code(s): N18.9 - Chronic kidney disease, unspecified; D63.1 - Anemia in chronic kidney disease Status: Acute DS: Summary Hospital Course Hospital Course: See above Status at Discharge Cognitive/behavioral status at discharge: Stable, improved. Time Spent with Patient Time attestation: Total time spent providing and/or coordinating discharge services: 43 Time spent: Greater than 30 minutes Exam Narrative: Exam Narrative: General: 50-year-old man sitting up in bed. Appears comfortable. In no acute distress. Skin: No jaundice or cyanosis. Goo
--- NOTE | 2021-01-22 13:01 | PC.NURSE ---
Blood cx negative.
== END 2021-01-12 14:19 | disposition home or self-care (01) ==
LOC: ANHED 10:26 → ANHIMU 10:41
PROVIDERS: Admitting Provider Internal Medicine; Emergency Provider Emergency Medicine; PCP Family Medicine; Visit Provider Physician Assistant
DX: R07.9 Chest pain, unspecified (principal); E10.65 Type 1 diabetes mellitus with hyperglycemia; I13.2 Hypertensive heart and chronic kidney disease with heart failure and with stage 5 chronic kidney disease, or end stage renal disease; E10.22 Type 1 diabetes mellitus with diabetic chronic kidney disease; N18.6 End stage renal disease; I50.9 Heart failure, unspecified; Z99.2 Dependence on renal dialysis; E10.319 Type 1 diabetes mellitus with unspecified diabetic retinopathy without macular edema; E10.42 Type 1 diabetes mellitus with diabetic polyneuropathy; E78.5 Hyperlipidemia, unspecified; I25.10 Atherosclerotic heart disease of native coronary artery without angina pectoris; I82.531 Chronic embolism and thrombosis of right popliteal vein; D63.1 Anemia in chronic kidney disease; G47.33 Obstructive sleep apnea (adult) (pediatric); K21.9 Gastro-esophageal reflux disease without esophagitis; M10.9 Gout, unspecified; I48.0 Paroxysmal atrial fibrillation; N25.81 Secondary hyperparathyroidism of renal origin; Z79.02 Long term (current) use of antithrombotics/antiplatelets; Z79.82 Long term (current) use of aspirin; Z95.5 Presence of coronary angioplasty implant and graft; Z79.4 Long term (current) use of insulin
CPT/HCPCS: 36415; 71046; 74176; 80048; 80053; 80076; 82947; 82948; 83690; 84484; 85025; 85610; 85730; 87040; 93005; 96374; 99285; A9270; G0378; J1815

== ENCOUNTER 2021-01-25 07:02 | Observation (INO) | payer MEDICARE, MEDICAID, SELFPAY ==
[2021-01-25] VITALS (16 sets, daily range): BP systolic 143–184; BP diastolic 57–78; PULSE 62–71; RESP 12–22; TEMP 36.4–37; O2SAT 93–98; BMI 41.7
--- NOTE | ~2021-01-25 | US_ITS ---
EXAMINATION: US venous doppler LE EXAM DATE: 01/26/2021 11:11 INDICATION: Edema lower extremity . Right popliteal thrombus on prior study. TECHNIQUE: Multiple grayscale, color flow and Doppler images of the lower extremity deep venous syste ms bilaterally were obtained and reviewed. Comparison is made to prior examination from 09/10/2019. FINDINGS: Right side: Interval recanalization of the right popliteal vein. The right common femoral, femoral an d profunda veins demonstrate normal color flow, respiratory variation, augmentation and compressibili ty. Compressibility, color flow confirmed within the right popliteal, posterior tibial, peroneal, an d greater saphenous veins. Focal region was measured in the distal aspect of the right thigh muscula ture medially at 6.3 x 3.0 x 4.0 cm. Nonspecific region, most likely intramuscular hematoma, Left side: The left common femoral, femoral and profunda veins demonstrate normal color flow, respira tory variation, augmentation and compressibility. Compressibility, color flow confirmed within the l eft popliteal, posterior tibial, peroneal, and greater saphenous veins. IMPRESSION: 1. No lower extremity deep venous thrombosis bilaterally. 2. Focal heterogeneous right thigh region probably intramuscular hematoma. Reviewed, dictated and finalized at location A.
--- NOTE | ~2021-01-25 | XR_ITS ---
EXAMINATION: XR chest 1V portable 01/25/2021 12:40 INDICATION: Chest discomfort PROCEDURE: AP portable chest COMPARISON: Comparison to multiple prior studies sequentially, with oldest reviewed study dated 01/29. FINDINGS: The lungs are clear. The cardiomediastinal silhouette is within normal limits. There are no pleural effusions. There is no pneumothorax suspected. IMPRESSION: 1: NO ACUTE CARDIOPULMONARY DISEASE. Reviewed, dictated and finalized at location B.
--- NOTE | ~2021-01-25 | CT_ITS ---
EXAMINATION: CTA chest PE protocol EXAM DATE: 01/26/2021 02:36 INDICATION: Elevated d-dimer, shortness of breath. Cardiac catheterization 01/21. TECHNIQUE: Spiral CTA of the chest (pulmonary arteries) was performed with 100 cc Omnipaque 350 intr avenous contrast injection. Images were acquired during the pulmonary arterial phase. Coronal maxi mum intensity projection 3D-reconstructions were created by the technologist on dedicated workstation . Axial, coronal and sagittal reformatted images were reviewed. The dose-length product (DLP) for t his examination was 1010.76 mGy-cm. The exposure was tailored according to patient size (auto mA ex posure control), and iterative reconstruction (ASIR) was used as additional dose reduction technique. Comparison is made to prior examination from 06/15/2017. FINDINGS: Pulmonary arteries are well opacified and without intraluminal filling defects. No thora cic aortic dissection. Lingular subsegmental atelectasis. There are no pleural or pericardial effus ions. Tracheobronchial tree is patent. There is no mediastinal, hilar or axillary lymphadenopathy . There is no pneumothorax. Heart normal in size. There is moderate coronary arterial calcifica tion, arterial sclerosis. Couple of punctate gallstones. There is mild thoracic spondylosis without osteoblastic or osteolytic lesions identified. IMPRESSION: No acute cardiopulmonary findings. Reviewed, dictated and finalized at location A.
--- NOTE | 2021-01-25 07:10 | ED.ALLEREA ---
HPI - Allergic Reaction General Chief complaint: Allergic Reaction Stated complaint: Allergic reaction Time Seen by Provider: 01/25/21 07:06 Source: patient Mode of arrival: ambulatory Limitations: no limitations History of Present Illness HPI narrative: Patient is a 50 yo male with a history of CHF, CAD, DM, HTN, CKD on peritoneal dialysis who presents for evaluation of shortness of breath. Patient states that he had a cardiac catheterization at [facility] on January 21, received IV contrast which he has a known allergy to, and reports continued shortness of breath since he received IV contrast. Patient reports all over itching, hand and leg edema. He denies any chest pain. He denies cough or hemoptysis. He reports feeling short of breath. Pt states he has tried to be very compliant with his medications including his pradaxa. Pt denies history of PE, but reports history of DVT in the past. Pt with recent hospitalization and surgical procedure. Denies recent car or air travel. Pt states he feels he cannot take a deep breath and has shortness of breath with any activity. Pt not on home oxygen. Related Data Home Medications Medication Instructions Recorded Confirmed aspirin 81 mg PO DAILY 06/04/19 01/25/21 calcitriol 0.25 mcg PO QAM 06/04/19 01/25/21 clopidogrel 75 mg PO DAILY 06/04/19 01/25/21 ergocalciferol (vitamin D2) 50,000 unit PO WEEKLY 06/04/19 01/25/21 [Vitamin D2] hydralazine 100 mg PO Q8H 06/04/19 01/25/21 nitroglycerin 0.4 mg SUBLINGUAL Q5-15M PRN 06/04/19 01/25/21 ezetimibe [Zetia] 10 mg PO DAILY 09/09/19 01/25/21 isosorbide mononitrate 30 mg PO DAILY 09/09/19 01/25/21 metoprolol tartrate 100 mg PO Q12H 09/09/19 01/25/21 ranolazine 500 mg tablet,extended 500 mg PO Q12H 09/24/19 01/25/21 release,12 hr cetirizine [All Day Allergy 10 mg PO DAILY 12/26/19 01/25/21 (cetirizine)] furosemide 80 mg PO BID 02/02/20 01/25/21 calcium acetate(phosphat bind) 667 mg PO QID 03/31/20 01/25/21 famotidine 40 mg PO HS 03/31/20 01/25/21 subcutaneous insulin pump #1 ea 08/24/20 01/25/21 atorvastatin 80 mg PO HS 11/26/20 01/25/21 colchicine [Colcrys] 0.6 mg PO QMWF 11/26/20 01/25/21 doxycycline hyclate 50 mg PO BID 11/26/20 01/25/21 meloxicam 7.5 mg PO BID 11/26/20 01/25/21 omeprazole 20 mg PO QAM 11/26/20 01/25/21 valacyclovir 500 mg PO TID 11/26/20 01/25/21 amlodipine 10 mg PO DAILY 01/11/21 01/25/21 gemfibrozil 600 mg PO DAILY 01/25/21 01/25/21 Allergies Allergy/AdvReac Type Severity Reaction Status Date / Time allopurinol Allergy Severe Other Verified 01/25/21 15:32 iohexol Allergy Severe Difficulty Verified 01/25/21 15:32 [From CONTRAST - CT, XRAY] Breathing ticagrelor Allergy Intermediate Rash Verified 01/25/21 15:32 Review of Systems Review of Systems: Narrative: CONSTITUTIONAL: Denies fever, chills, or sweats. EYES: Denies visual changes, redness, or discharge. ENT: Denies rhinorrhea, congestion, sore throat, or otalgia. CARDIOVASCULAR: Denies chest pain, palpitations, or edema. RESPIRATORY: Reports dyspnea GASTROINTESTINAL: Denies abdominal pain, nausea, vomiting, or diarrhea. GENITOURINARY: Denies dysuria or hematuria. SKIN:Reports itching and rash. MUSCULOSKELETAL: Denies back pain, joint pain, or myalgia. NEUROLOGIC: Denies headache, numbness, or weakness. [facility] Past Medical History Medical History Anemia in chronic kidney disease Anxiety Arthritis Bronchitis Congestive heart failure Echocardiogram May 2017 EF of 50% with hypokinetic apical, inferior and basal inferior lateral segment, mild enlargement of left atrium. Coronary artery disease With history of several stents. Followed by [facility]. Deep venous thrombosis Chronic right popliteal DVT. Diabetic peripheral neuropathy Diabetic retinopathy End-stage renal disease on peritoneal dialysis Essential hypertension Fracture left lower ext Gastroesophageal re
--- NOTE | 2021-01-25 07:21 | PC.NURSE ---
Arrives ambulatory steady gait from triage, s/p cardiac cath 01/21 at [facility] (L fem site bruised, soft to touch, no active bleeding), known allergy to contrast dye they medicated me five minutes before the procedure , has been on prednisone pack since 01/22, was told to come to ED if SOB. +peritoneal dialysis (full treatment yesterday, states normal amt of fluid was pulled), 98% RA, SOB on exertion. States hives and itching all over , generalized redness, no hives or resh noted
--- NOTE | 2021-01-25 07:33 | ECG_ITS ---
Measurements Intervals [place] Rate: 62 P: 55 MI: 197 QRS: -33 QRSD: 126 T: 115 QT: 471 QTc: 479 Interpretive Statements SINUS RHYTHM LEFT AXIS DEVIATION BORDERLINE R WAVE PROGRESSION, ANTERIOR LEADS CANNOT RULE OUT SEPTAL INFARCT, AGE INDETERMINATE BORDERLINE ST-T WAVE ABNORMALITY- HIGH LATERAL LEADS BASELINE ARTIFACT- I, II, AVR, AVL, V1-V6 ABNORMAL ECG Electronically Signed On 01-25-2021 11:59:35 CDT by Doc Dorantes D.O.
[2021-01-25] MEDS: methylPREDNISolone SOD SUCC 125 MG VIAL IV PUSH (07:48)
[2021-01-25] MEDS: ONDANSETRON INJ 4 MG/2 ML VIAL IV PUSH (07:49)
[2021-01-25] MEDS: diphenhydrAMINE HCl INJ 50 MG/ML VIAL 25 MG IV PUSH (07:49)
[2021-01-25] MEDS: FAMOTIDINE 20 MG/2 ML VIAL IV PUSH (07:49)
[2021-01-25 07:52] LABS: Basophils Percent Auto 0.2 % (0.2-1.2); Eosinophils Absolute Auto 0.1 K/mm3 (0-0.3); Eosinophils Percent Auto 0.4 % (0-4.4); Hematocrit 29.9 % (42.0-52.0); Hemoglobin 10.4 g/dL (14.0-18.0); Immature Granulocyte Absolute 0.65 K/mm3 (0.00-0.031); Lymphocytes Absolute Auto 1.02 K/mm3 (0.9-3.2); Lymphocytes Percent Auto 6.3 % (18.3-44.2); Mean Corpuscular HGB Conc 34.8 g/dl (32-36); Mean Corpuscular Hemoglobin 33.4 pg (26-34); Mean Corpuscular Volume 96.1 fl (80-100); Mean Platelet Volume 9.5 fl (7.4-10.4); Monocytes Absolute Auto 1.5 K/mm3 (0.1-0.6); Monocytes Percent Auto 9.6 % (2.6-8.5); Neutrophils Absolute Auto 12.8 K/mm3 (1.3-6.7); Neutrophils Percent Auto 79.5 % (45.5-73.1); Nucleated Red Blood Cells Perc 0.1 % (0.0-0.2); Platelet Count Result 185 k/mm3 (150-375); Red Blood Count 3.11 M/mm3 (4.6-6.20); Red Cell Distribution Width 12.8 % (11.5-14.5); White Blood Count 16.1 K/mm3 (4.5-10.0)
[2021-01-25 08:01] LABS: INR 0.9
[2021-01-25 08:02] LABS: Partial Thromboplastin Time 23.2 SECONDS (22.3-36.8)
[2021-01-25 08:08] LABS: Anion Gap 14 mmol/L (8-16); Blood Urea Nitrogen 82 mg/dL (9-20); Calcium 8.7 mg/dL (8.4-10.2); Carbon Dioxide 25 mmol/L (22-30); Chloride 100 mmol/L (98-107); Estimated CRCL calculation 14 ml/min; Estimated Glomerular Filt Rate 7; Glucose 127 mg/dL (75-110); Potassium 3.7 mmol/L (3.4-5.0); Sodium 139 mmol/L (137-145)
[2021-01-25 08:25] LABS: NT Pro B Type Natriuretic Pept 7560 pg/mL (5-100); Troponin I 0.037 ng/mL (0.000-0.034)
--- NOTE | 2021-01-25 08:40 | PC.NURSE ---
Pt resting on cart HOB up 90 degrees, non-labored respirations, ~92-94% RA sats. Pt reports itching and redness has improved, 5/10 pain to BLE
--- NOTE | 2021-01-25 09:45 | PC.NURSE ---
Pt asleep easily arousable, non-labored respirations on RA. NSR on monitor, denies CP/N/V
[2021-01-25 10:09] LABS: Troponin I 0.038 ng/mL (0.000-0.034)
[2021-01-25] MEDS: predniSONE 10 MG TABLET 50 MG PO (13:34)
[2021-01-25] MEDS: cloNIDine HCL 0.2 MG TABLET PO ×2 (17:02→21:03)
[2021-01-25 17:10] LABS: Glucose Point of Care 223 mg/dl (65-105)
[2021-01-25] MEDS: MELOXICAM 7.5 MG TABLET PO (17:49)
[2021-01-25] MEDS: FUROSEMIDE 80 MG TABLET PO (17:50)
[2021-01-25] MEDS: valACYclovir HCL 500 MG TABLET PO (17:50)
--- NOTE | 2021-01-25 18:59 | PM.IMHP ---
H&P: HPI History of Present Illness Date/Time: 01/25/21 18:59 patient who has end-stage renal disease and does peritoneal dialysis daily. The patient has a history of congestive heart failure, coronary artery disease, diabetes, hypertension and chronic kidney disease. The patient stated that he is allergic to IV contrast dye and that he was premedicated in order to get a cardiac catheterization at an outside facility. The patient stated he recently had a cardiac catheterization and had a rash on his back. He stated that he took Benadryl but he has been swollen from it. The patient stated he could take a deep breath in his D-dimer is mildly elevated. He has a history of having a DVT in the past. The patient felt that he was on Pradaxa but he explained to me that he is not on Pradaxa but he is on Plavix. Patient is being premedicated for a CT a pulmonary. The patient is on room air and not short of breath. The patient was given Benadryl, Pepcid, Solu-Medrol, Zofran, and prednisone in the emergency room. Patient has a very faint rash on his left leg. His blood pressure is 184/68 pulse ox is 98% and pulse rate 70. Patient is being admitted to observation status on the date of service of 01/25/2021 Chief Complaint: Allergic reaction Review of Systems Review of Systems: All systems reviewed & are unremarkable except as noted in HPI and below Constitutional: Constitutional: Reports as per HPI and Reports no additional constitutional complaints Eyes: Eyes: Reports as per HPI and Reports no additional eye complaints ENT: Reports system reviewed and no additional complaints, except as documented and Reports Normal hearing present Cardiovascular: Cardiovascular: Reports no additional cardiovascular complaints Respiratory: Respiratory: Reports no additional respiratory complaints and Reports no additional respiratory complaints Gastrointestinal: Gastrointestinal: Reports as per HPI and Reports no additional gastrointestinal complaints Musculoskeletal: Musculoskeletal: Reports no additional musculoskeletal complaints Integumentary/Breasts: Skin/Breast: Reports system reviewed and no additional complaints, except as docu and Reports as per HPI Neurologic: Reports system reviewed and no additional complaints, except as documented, Reports as per HPI and Reports Normal hearing present Psychiatric: Psychiatric: Reports no additional psychiatric complaints and Reports as per HPI Endocrine: Endocrine: Reports no additional endocrine complaints Hematologic/Lymphatic: Hematologic/Lymphatic: Reports no additional hematologic/lymphatic complaints Allergic/Immunologic: Allergic/Immunologic: Reports no additional allergic/immunologic complaints PMFSH Past Medical History Medical History Anemia in chronic kidney disease Anxiety Arthritis Bronchitis Congestive heart failure Echocardiogram May 2017 EF of 50% with hypokinetic apical, inferior and basal inferior lateral segment, mild enlargement of left atrium. Coronary artery disease With history of several stents. Followed by [facility]. Deep venous thrombosis Chronic right popliteal DVT. Diabetic peripheral neuropathy Diabetic retinopathy End-stage renal disease on peritoneal dialysis Essential hypertension Fracture left lower ext Gastroesophageal reflux disease Gout Hyperlipidemia Obstructive sleep apnea With inconsistent CPAP use. Paroxysmal atrial fibrillation The patient denies Secondary hyperparathyroidism of renal origin Seizure X1 with etiology unknown Type 1 diabetes mellitus Onset around age 13. Surgical History Surgical History History of anterior cruciate ligament surgery (~2000) Left knee History of appendectomy (~2006) History of arthroscopy of left knee History of bilateral carpal tunnel release Right 05/03/2018. Left 06/02/2018. H
[2021-01-25] MEDS: predniSONE 40 MG, predniSONE 10 MG 50 MG PO (19:04)
[2021-01-25] MEDS: FAMOTIDINE 20 MG TABLET 40 MG PO (20:56)
[2021-01-25] MEDS: METOPROLOL TARTRATE 50 MG TAB 100 MG PO (20:56)
[2021-01-25] MEDS: RANOLAZINE 500 MG TAB.ER.12H PO (20:56)
[2021-01-25] MEDS: ATORVASTATIN 40 MG TABLET 80 MG PO (20:58)
[2021-01-25] MEDS: DOXYCYCLINE HYCLATE 50 MG CAPSULE PO (20:58)
[2021-01-25] MEDS: hydrALAZINE HCL 50 MG TABLET 100 MG PO (21:03)
[2021-01-25] MEDS: HEPARIN SODIUM 5,000 UNITS/ML VIAL 5000 UNITS SUB-Q (21:08)
[2021-01-26] VITALS (12 sets, daily range): BP systolic 150–164; BP diastolic 56–59; PULSE 56–72; RESP 18–20; TEMP 36.4–36.7; O2SAT 95–97
[2021-01-26 00:23] LABS: Glucose Point of Care 363 mg/dl (65-105)
[2021-01-26] MEDS: diphenhydrAMINE HCl CAP 25 MG CAPSULE 50 MG PO ×2 (01:37→21:37)
[2021-01-26] MEDS: predniSONE 40 MG, predniSONE 10 MG 50 MG PO (01:38)
[2021-01-26] MEDS: HEPARIN SODIUM 5,000 UNITS/ML VIAL 5000 UNITS SUB-Q ×3 (05:45→21:23)
[2021-01-26] MEDS: hydrALAZINE HCL 50 MG TABLET 100 MG PO ×3 (05:45→21:23)
[2021-01-26] MEDS: cloNIDine HCL 0.2 MG TABLET PO ×3 (05:45→21:27)
[2021-01-26] MEDS: DOXYCYCLINE HYCLATE 50 MG CAPSULE PO ×2 (05:49→21:24)
[2021-01-26 06:20] LABS: Basophils Percent Auto 0.2 % (0.2-1.2); Eosinophils Percent Auto 0.1 % (0-4.4); Hematocrit 27.1 % (42.0-52.0); Hemoglobin 9.3 g/dL (14.0-18.0); Immature Granulocyte Absolute 0.47 K/mm3 (0.00-0.031); Immature Granulocyte Percent A 4.4 % (0-0.5); Lymphocytes Percent Auto 8.5 % (18.3-44.2); Mean Corpuscular HGB Conc 34.3 g/dl (32-36); Mean Corpuscular Hemoglobin 32.9 pg (26-34); Mean Corpuscular Volume 95.8 fl (80-100); Mean Platelet Volume 10.3 fl (7.4-10.4); Monocytes Absolute Auto 0.9 K/mm3 (0.1-0.6); Neutrophils Absolute Auto 8.3 K/mm3 (1.3-6.7); Neutrophils Percent Auto 78.8 % (45.5-73.1); Platelet Count Result 174 k/mm3 (150-375); Red Blood Count 2.83 M/mm3 (4.6-6.20); Red Cell Distribution Width 12.4 % (11.5-14.5); White Blood Count 10.6 K/mm3 (4.5-10.0)
[2021-01-26 06:35] LABS: Alanine Aminotransferase 33 U/L (4-50); Albumin Level 3.3 g/dL (3.5-5.1); Alkaline Phosphatase 107 U/L (38-126); Anion Gap 15 mmol/L (8-16); Aspartate Amino Transferase 30 U/L (17-59); Bilirubin,Total 0.4 mg/dL (0.2-1.3); Blood Urea Nitrogen 101 mg/dL (9-20); Calcium 7.8 mg/dL (8.4-10.2); Carbon Dioxide 22 mmol/L (22-30); Chloride 96 mmol/L (98-107); Estimated CRCL calculation 14 ml/min; Estimated Glomerular Filt Rate 7; Glucose 192 mg/dL (75-110); Potassium 3.9 mmol/L (3.4-5.0); Sodium 133 mmol/L (137-145)
[2021-01-26] MEDS: MELOXICAM 7.5 MG TABLET PO ×2 (07:21→17:29)
[2021-01-26] MEDS: gemfibroziL 600 MG TABLET PO (07:21)
[2021-01-26 07:42] LABS: Glucose Point of Care 175 mg/dl (65-105)
--- NOTE | 2021-01-26 08:35 | PM.CNNEP ---
Assessment and Plan Additional Plan End-stage renal disease Shortness of breath with fluid retention with chest x-ray clear. 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 He will need to get more fluid off to get down to his expected weight. I believe getting the fluid off may help with some of his breathing discomfort. It is still in hospital will start dialysis here otherwise he can go home and use higher concentration Dianeal for a few days. -follow-up of ESRD and related needs. If this does not follow up on an outpatient basis. History of Present Illness Reason for Consult Consult date: 01/26/21 Reason for consult: end stage renal disease Chief Complaint Chief complaint: Dyspnea/rule out PE/requires pre treatment protoco History of Present Illness Narrative: 50-year-old white male who has a history of diabetes type 1 with nephropathy, hypertension, anemia, secondary hyperparathyroidism with a known coronary artery disease and congestive heart failure. He had cardiac catheterization on January 21 on an outpatient basis. I do not have the report available. Apparently has patent stents. Don have a newq echo available to see what his ejection fraction is. Gold echocardiograms indicated an ejection fraction of 50% Since his cardiac catheterization the patient developed welts over his body, 80 skin, bilateral lower extremity swelling, with some shortness of breath which was progressive in nature and finally presented to the emergency room from where he has been admitted for further management. CT scan was done last night and the patient does not have any pulmonary embolism. He is on peritoneal dialysis nightly. Generally has been doing okay. He does remove his fluid. He has gained about 3-6 lb of body weight by estimate. He needs to sit upright. No chest pains or chest pressure. Review of Systems Review of Systems: All systems reviewed & are unremarkable except as noted in HPI and below [facility] Past Medical History Medical History Anemia in chronic kidney disease Anxiety Arthritis Bronchitis Congestive heart failure Echocardiogram May 2017 EF of 50% with hypokinetic apical, inferior and basal inferior lateral segment, mild enlargement of left atrium. Coronary artery disease With history of several stents. Followed by [facility]. Deep venous thrombosis Chronic right popliteal DVT. Diabetic peripheral neuropathy Diabetic retinopathy End-stage renal disease on peritoneal dialysis Essential hypertension Fracture left lower ext Gastroesophageal reflux disease Gout Hyperlipidemia Obstructive sleep apnea With inconsistent CPAP use. Paroxysmal atrial fibrillation The patient denies Secondary hyperparathyroidism of renal origin Seizure X1 with etiology unknown Type 1 diabetes mellitus Onset around age 13. Surgical History Surgical History History of anterior cruciate ligament surgery (~2000) Left knee History of appendectomy (~2006) History of arthroscopy of left knee History of bilateral carpal tunnel release Right 05/03/2018. Left 06/02/2018. History of cardiac catheterization :August 2019 demonstrated patent stents with 40% stenosis of 1 vessel with no stents or angioplasty performed per patient report. :November 2018 at [facility] - stent x3. :March 2017 demonstrating mild diffuse coronary disease 80% lesion small sub branch of obtuse marginal 1 and 90% stenosis distal RCA into the origin of the PDA with PTCA and stent to the RPDA
[2021-01-26] MEDS: ASPIRIN 81 MG CHEWABLE TABLET PO (08:52)
[2021-01-26] MEDS: EZETIMIBE 10 MG TABLET PO (08:52)
[2021-01-26] MEDS: calcitrioL 0.25 MCG CAPSULE PO (08:52)
[2021-01-26] MEDS: amLODIPine BESYLATE 5 MG TABLET 10 MG PO (08:52)
[2021-01-26] MEDS: CLOPIDOGREL BISULFATE 75 MG TABLET PO (08:52)
[2021-01-26] MEDS: FUROSEMIDE 80 MG TABLET PO (08:53)
[2021-01-26] MEDS: LORATADINE 10 MG TABLET PO (08:54)
[2021-01-26] MEDS: METOPROLOL TARTRATE 50 MG TAB 100 MG PO ×2 (08:54→21:25)
[2021-01-26] MEDS: ISOSORBIDE MONONITRATE 30 MG TAB.ER.24H PO (08:54)
[2021-01-26] MEDS: valACYclovir HCL 500 MG TABLET PO ×3 (08:55→17:30)
[2021-01-26] MEDS: RANOLAZINE 500 MG TAB.ER.12H PO ×2 (08:55→21:24)
[2021-01-26] MEDS: PANTOPRAZOLE 40 MG TABLET PO (08:55)
[2021-01-26 11:52] LABS: Glucose Point of Care 145 mg/dl (65-105)
--- NOTE | 2021-01-26 12:16 | PM.IMPN ---
Progress Note: A&P Assessment and Plan (1) Acute diastolic CHF (congestive heart failure): Code(s): I50.31 - Acute diastolic (congestive) heart failure Status: Acute Assessment and Plan: Patient has abdominal distension, leg swelling bilaterally which he states is from his allergic reaction to the IV contrast. Now he is in diastolic CHF exacerbation. I talked to his speaker mounter, Dr. Reyes who recommend increasing his a higher concentration Dianeal for a few days, and giving IV Lasix 100 mg this afternoon and monitoring urine intake/output. Continue monitoring. (2) Allergic reaction: Qualifiers: Encounter type: initial encounter Qualified Code(s): T78.40XA - Allergy, unspecified, initial encounter Code(s): T78.40XA - Allergy, unspecified, initial encounter Status: Acute Assessment and Plan: Allergic reaction to IV Contrast in the past. Patient had cardiac cath and afterwards developed a rash, redness to his back and buttock as well as swelling diffusely which he states is similar to reaction in the past. Patient was given Solu-Medrol and prednisone on arrival to ER. Patient also received IV contrast CTA to rule out PE and was premedicated for it. Will continue monitoring overnight for any allergic reaction issues Patient still feels fluid overloaded, swelling Improved itching and rash. Continue PRN Benadryl as needed for symptoms. Continue monitoring (3) Elevated d-dimer: Code(s): R79.89 - Other specified abnormal findings of blood chemistry Status: Acute Assessment and Plan: CTA Chest showed no PE and Venous Dopplers were negative for DVT. Unsure cause of elevated D-dimer other than possible inflammatory changes from allergic rxn. (4) Obstructive sleep apnea: Code(s): G47.33 - Obstructive sleep apnea (adult) (pediatric) Status: Acute Assessment and Plan: Auto titrate CPAP (5) Essential hypertension: Code(s): I10 - Essential (primary) hypertension Status: Chronic Assessment and Plan: BP this morning 156/58 prior to home medications being given. Continue with home medication of amlodipine, metoprolol, hydralazine and Lasix (6) Type 1 diabetes mellitus: Code(s): E10.9 - Type 1 diabetes mellitus without complications Status: Acute Assessment and Plan: The patient sees cleaner carpet and upholstery. Continue Accu-Cheks and he has an insulin pump. SSI. Hypoglycemic protocol. (7) Anemia of chronic renal failure, stage 4 (severe): Code(s): N18.4 - Chronic kidney disease, stage 4 (severe); D63.1 - Anemia in chronic kidney disease Status: Acute Assessment and Plan: Chronic from ESRD. H&H stable. No signs of acute bleeding. Continue to monitor. (8) End stage renal disease on dialysis: Code(s): N18.6 - End stage renal disease; Z99.2 - Dependence on renal dialysis Status: Acute Assessment and Plan: I did consult Nephrology and continue with peritoneal dialysis. Time Spent With Patient Time with patient: 25 - 35 minutes Subjective Date/time seen: 01/26/21 12:16 Interval history: Date of service 01/26/2021: Patient still reports feeling swollen mostly to his abdomen, thighs and lower legs. He states this is what happened a few years ago whenever he had contrast and had an allergic reaction. He is only having slight itching at times, rashes improving but still present to his arms, legs. Denies any lip swelling, tongue swelling, feeling that his airways closing. The patient also reports some shortness of breath with laying down while he had his venous Dopplers earlier which concerned him. Denies any chest pain, fever, chills, cough, nausea, vomiting, abdominal pain, lightheadedness, dizziness or any other symptoms at this time. Review of Systems Review of Systems: All systems reviewed & are unremarkable except as noted in HPI and below Exam
[2021-01-26] MEDS: FUROSEMIDE INJ 100 MG/10 ML VIAL IV PUSH (14:54)
[2021-01-26 16:36] LABS: Glucose Point of Care 172 mg/dl (65-105)
[2021-01-26] MEDS: CALCIUM ACETATE 667 MG TABLET PO ×2 (17:28→21:25)
[2021-01-26] MEDS: FAMOTIDINE 20 MG TABLET 40 MG PO (21:25)
[2021-01-26] MEDS: ATORVASTATIN 40 MG TABLET 80 MG PO (21:27)
[2021-01-26 21:42] LABS: Glucose Point of Care 410 mg/dl (65-105)
[2021-01-27] VITALS (7 sets, daily range): BP systolic 133–147; BP diastolic 60–62; PULSE 53–61; RESP 16–18; TEMP 36.2–37.2; O2SAT 97–99
[2021-01-27 05:43] LABS: Basophils Percent Auto 0.2 % (0.2-1.2); Eosinophils Percent Auto 0.1 % (0-4.4); Hematocrit 27.2 % (42.0-52.0); Hemoglobin 9.8 g/dL (14.0-18.0); Immature Granulocyte Absolute 0.72 K/mm3 (0.00-0.031); Lymphocytes Absolute Auto 0.95 K/mm3 (0.9-3.2); Lymphocytes Percent Auto 6.7 % (18.3-44.2); Mean Corpuscular Hemoglobin 33.9 pg (26-34); Mean Corpuscular Volume 94.1 fl (80-100); Monocytes Absolute Auto 1.8 K/mm3 (0.1-0.6); Monocytes Percent Auto 12.8 % (2.6-8.5); Neutrophils Absolute Auto 10.7 K/mm3 (1.3-6.7); Neutrophils Percent Auto 75.2 % (45.5-73.1); Nucleated Red Blood Cells Absolute Auto 0.1 K/mm3 (0.0-0.012); Nucleated Red Blood Cells Perc 0.4 % (0.0-0.2); Platelet Count Result 191 k/mm3 (150-375); Red Blood Count 2.89 M/mm3 (4.6-6.20); Red Cell Distribution Width 12.4 % (11.5-14.5); White Blood Count 14.3 K/mm3 (4.5-10.0)
[2021-01-27] MEDS: hydrALAZINE HCL 50 MG TABLET 100 MG PO ×2 (05:53→13:26)
[2021-01-27] MEDS: cloNIDine HCL 0.2 MG TABLET PO ×2 (05:53→13:26)
[2021-01-27] MEDS: HEPARIN SODIUM 5,000 UNITS/ML VIAL 5000 UNITS SUB-Q ×2 (05:53→13:27)
[2021-01-27] MEDS: DOXYCYCLINE HYCLATE 50 MG CAPSULE PO (05:53)
[2021-01-27 05:59] LABS: Albumin Level 3.3 g/dL (3.5-5.1); Anion Gap 15 mmol/L (8-16); Blood Urea Nitrogen 113 mg/dL (9-20); Calcium 8.2 mg/dL (8.4-10.2); Carbon Dioxide 23 mmol/L (22-30); Chloride 95 mmol/L (98-107); Estimated CRCL calculation 14 ml/min; Estimated Glomerular Filt Rate 7; Glucose 169 mg/dL (75-110); Phosphorus 7.3 mg/dL (2.5-4.5); Potassium 3.8 mmol/L (3.4-5.0); Sodium 133 mmol/L (137-145)
[2021-01-27] MEDS: CALCIUM ACETATE 667 MG TABLET PO ×2 (08:22→13:26)
[2021-01-27] MEDS: EZETIMIBE 10 MG TABLET PO (08:22)
[2021-01-27] MEDS: calcitrioL 0.25 MCG CAPSULE PO (08:22)
[2021-01-27] MEDS: FUROSEMIDE 80 MG TABLET PO (08:23)
[2021-01-27] MEDS: PANTOPRAZOLE 40 MG TABLET PO (08:23)
[2021-01-27] MEDS: METOPROLOL TARTRATE 50 MG TAB 100 MG PO (08:23)
[2021-01-27] MEDS: COLCHICINE 0.6 MG TABLET PO (08:23)
[2021-01-27] MEDS: ASPIRIN 81 MG CHEWABLE TABLET PO (08:23)
[2021-01-27] MEDS: ISOSORBIDE MONONITRATE 30 MG TAB.ER.24H PO (08:23)
[2021-01-27] MEDS: amLODIPine BESYLATE 5 MG TABLET 10 MG PO (08:23)
[2021-01-27] MEDS: LORATADINE 10 MG TABLET PO (08:23)
[2021-01-27] MEDS: RANOLAZINE 500 MG TAB.ER.12H PO (08:23)
[2021-01-27] MEDS: CLOPIDOGREL BISULFATE 75 MG TABLET PO (08:23)
[2021-01-27] MEDS: gemfibroziL 600 MG TABLET PO (08:24)
[2021-01-27] MEDS: valACYclovir HCL 500 MG TABLET PO ×2 (08:24→13:26)
[2021-01-27] MEDS: MELOXICAM 7.5 MG TABLET PO (08:24)
[2021-01-27 08:50] LABS: Glucose Point of Care 63 mg/dl (65-105)
[2021-01-27 09:24] LABS: Glucose Point of Care 101 mg/dl (65-105)
[2021-01-27 11:38] LABS: Glucose Point of Care 83 mg/dl (65-105)
[2021-01-27 14:31] LABS: Add Urine Microscopic? YES; Appearance Urine Clear (Clear); Bilirubin Urine Negative (Negative); Blood Urine Negative (Negative); Color Urine Yellow (Yellow); Glucose Urine UA 1+ mg/dL (Negative); Ketones Urine Negative (Negative); Leukocyte Esterase Ur Negative LEU/UL (Negative); Mucus Urine Rare /lpf; Nitrate Urine Negative (Negative); Protein Urine Negative (Negative); RBC Urine 0-2 /hpf (0-2); Specific Grav Ur 1.019 (1.001-1.035); Squamous Epithelial Cell Urine Rare /hpf (Few); Urobilinogen Urine Negative mg/dL (<2.0); WBC Urine 0-3 /hpf
--- NOTE | 2021-01-27 14:36 | PM.DS ---
DS: Admitting Diagnosis Admitting Diagnosis Admitting Diagnosis: SOB DS: Discharge Diagnosis Discharge Diagnosis (1) Acute diastolic CHF (congestive heart failure): Code(s): I50.31 - Acute diastolic (congestive) heart failure Status: Acute Assessment and Plan: Patient is a 50-year-old man with a history of insulin-dependent diabetes, end-stage renal disease on peritoneal dialysis, coronary artery disease status post PCI, who presented to the emergency room with shortness of breath. Patient had a cardiac catheterization at [facility] [place] on 01/21/21 and he has a history of an allergy to IV contrast. The patient had continued shortness of breath, rash, pruritus, and swelling to his legs, abdomen and hands since his cardiac catheterization. They forgot to premedicate him before his cardiac catheterization but they did give him steroids to be discharged home with. He became worrisome due to his shortness of breath in came to the ER for further evaluation. Initial vitals showed he was afebrile, non tachycardic, elevated blood pressure 184/68, normal respiratory rate and oxygenation on room air. Initial labs showed leukocytosis at 16,000 (most likely from steroids he had been on), chronic stable normocytic anemia of chronic disease. Elevated D-dimer 0.9. Creatinine 7.9, BUN 82 on dialysis. Troponin was elevated at 0.037, and 0.038, with no acute abnormality on EKG. Chest x-ray shows no acute cardiopulmonary disease. CTA of chest was ordered due to elevated D-dimer cardiopulmonary findings, no PE. Venous Dopplers were negative for DVT bilaterally. Patient was admitted into the hospital for observation due to his allergic reactions symptoms, to continue medications as needed as well as diastolic CHF exacerbation with bilateral leg swelling, abdominal distension. I talked to the patient's aircraft armorer Dr. Reyes who recommended giving IV Lasix and who placed the patient on a higher concentration Dianeal overnight. The patient is feeling better at this time, some improvement of his lower extremity swelling and abdominal distention overnight. No more SOB or ROONEY today. Talked to Dr. Reyes who recommended him to use a red and green cap during his paratoneal dialysis tonight and to call the dialysis nurse in the morning with how he is feeling, then they can decide what he should do tomorrow night. The patient feels comfortable with the plan. He was reporting dark colored urine and foul odor to his urine so a UA was completed and normal other than urine glucose and hyaline casts. Told to continue taking Benadryl as needed, Continue on H2 umair and follow up with PCP after discharge. (2) Allergic reaction: Qualifiers: Encounter type: initial encounter Qualified Code(s): T78.40XA - Allergy, unspecified, initial encounter Code(s): T78.40XA - Allergy, unspecified, initial encounter Status: Acute (3) Elevated d-dimer: Code(s): R79.89 - Other specified abnormal findings of blood chemistry Status: Acute Assessment and Plan: CTA Chest showed no PE and Venous Dopplers were negative for DVT. Unsure cause of elevated D-dimer other than possible inflammatory changes from allergic rxn. (4) Obstructive sleep apnea: Code(s): G47.33 - Obstructive sleep apnea (adult) (pediatric) Status: Acute Assessment and Plan: Auto titrate CPAP (5) Essential hypertension: Code(s): I10 - Essential (primary) hypertension Status: Chronic Assessment and Plan: BP this morning 147/60 prior to home medications being given. Continue with home medication of amlodipine, metoprolol, hydralazine and Lasix (6) Type 1 diabetes mellitus: Code(s): E10.9 - Type 1 diabetes mellitus without complications Status: Acute Assessment and Plan: The patient sees business instructor. (7) Anemia of chronic renal failure, stage 4 (severe): Code(s): N18.
--- NOTE | 2021-02-02 08:59 | PC.NURSE ---
Blood cx are negative.
== END 2021-01-27 15:35 | disposition home or self-care (01) ==
LOC: ANHED 11:47 → ANH3MEDSUR 13:45
PROVIDERS: Nurse Practitioner; Physician Assistant; Admitting Provider Internal Medicine; Emergency Provider Emergency Medicine; PCP Family Medicine; Visit Provider Family Medicine
DX: T78.40XA Allergy, unspecified, initial encounter (principal); I13.2 Hypertensive heart and chronic kidney disease with heart failure and with stage 5 chronic kidney disease, or end stage renal disease; I50.31 Acute diastolic (congestive) heart failure; R60.0 Localized edema; N18.6 End stage renal disease; R79.89 Other specified abnormal findings of blood chemistry; D63.1 Anemia in chronic kidney disease; E10.21 Type 1 diabetes mellitus with diabetic nephropathy; E10.22 Type 1 diabetes mellitus with diabetic chronic kidney disease; E66.9 Obesity, unspecified; G47.33 Obstructive sleep apnea (adult) (pediatric); I25.10 Atherosclerotic heart disease of native coronary artery without angina pectoris; N25.81 Secondary hyperparathyroidism of renal origin; Z79.02 Long term (current) use of antithrombotics/antiplatelets; Z99.2 Dependence on renal dialysis; Z79.4 Long term (current) use of insulin; Z68.42 Body mass index [BMI] 45.0-49.9, adult
CPT/HCPCS: 36415; 71045; 71275; 80048; 80053; 80069; 81001; 82948; 83735; 83880; 84484; 85025; 85380; 85610; 85730; 87040; 90945; 93005; 93970; 96372; 96374; 96375; 99285; A9270; G0378; J1200; J1644; J1940; J2405; J2930; J7512; Q9967

== ENCOUNTER 2021-02-01 16:55 | Inpatient (IN) | payer MEDICARE, MEDICAID, SELFPAY ==
[2021-02-01] VITALS (16 sets, daily range): BP systolic 156–168; BP diastolic 56–64; PULSE 65–68; RESP 10–20; TEMP 37; O2SAT 95–100; BMI 39.0
--- NOTE | ~2021-02-01 | XR_ITS ---
EXAMINATION: XR chest 1V portable DATE: 02/01/2021 17:26 INDICATION: Shortness of breath. Congestive heart failure. TECHNIQUE: frontal view of the chest was obtained. COMPARISON: Chest radiograph dated 01/25/2021 FINDINGS: New patchy airspace opacities in the left mid to lower lung zones and more subtle opacities in the ri ght infrahilar region. No pleural effusion or pneumothorax. The cardiomediastinal silhouette is mario l. IMPRESSION: 1. Opacities in the left mid to lower and to lesser degree right lower lung zone which could represen t pneumonia, mild pulmonary edema, atelectasis or some combination thereof. Reviewed, dictated and finalized at location A. IMPRESSION: 1. Opacities in the left mid to lower and to lesser degree right lower lung zon e which could represent pneumonia, mild pulmonary edema, atelectasis or some co mbination thereof.
--- NOTE | 2021-02-01 17:09 | ECG_ITS ---
Measurements Intervals [place] Rate: 66 P: 62 MO: 207 QRS: -35 QRSD: 117 T: 120 QT: 469 QTc: 494 Interpretive Statements SINUS RHYTHM LEFT AXIS DEVIATION INCOMPLETE LEFT BUNDLE BRANCH BLOCK BORDERLINE R WAVE PROGRESSION, ANTERIOR LEADS BORDERLINE ST-T WAVE ABNORMALITY- HIGH LATERAL LEADS BASELINE ARTIFACT- I, II, III, AVR, AVL, AVF, V1-V6 ABNORMAL ECG Electronically Signed On 02-01-2021 21:47:19 CDT by Doc Dorantes D.O.
[2021-02-01 17:19] LABS: Basophils Percent Auto 0.2 % (0.2-1.2); Eosinophils Absolute Auto 0.1 K/mm3 (0-0.3); Eosinophils Percent Auto 1.1 % (0-4.4); Hematocrit 25.8 % (42.0-52.0); Hemoglobin 8.7 g/dL (14.0-18.0); Immature Granulocyte Percent A 0.9 % (0-0.5); Lymphocytes Absolute Auto 0.75 K/mm3 (0.9-3.2); Lymphocytes Percent Auto 6.6 % (18.3-44.2); Mean Corpuscular HGB Conc 33.7 g/dl (32-36); Mean Corpuscular Hemoglobin 32.6 pg (26-34); Mean Corpuscular Volume 96.6 fl (80-100); Mean Platelet Volume 10.6 fl (7.4-10.4); Monocytes Absolute Auto 1.2 K/mm3 (0.1-0.6); Monocytes Percent Auto 10.6 % (2.6-8.5); Neutrophils Absolute Auto 9.1 K/mm3 (1.3-6.7); Neutrophils Percent Auto 80.6 % (45.5-73.1); Platelet Count Result 144 k/mm3 (150-375); Red Blood Count 2.67 M/mm3 (4.6-6.20); Red Cell Distribution Width 13.2 % (11.5-14.5); White Blood Count 11.3 K/mm3 (4.5-10.0)
--- NOTE | 2021-02-01 17:28 | ED.GENADULT ---
HPI - General Adult General Chief complaint: Shortness of Breath/Dyspnea Stated complaint: DIFFICULTY BREATHING, HIGH BLOOD SUGAR Time Seen by Provider: 02/01/21 17:02 Source: patient History of Present Illness HPI narrative: Patient is a 50 y/o male complaining of severe SOB since yesterday. There is no alleviating or exacerbating factor. He has a cough. He has no chest pain. He is on daily peritoneal dialysis. Related Data Home Medications Medication Instructions Recorded Confirmed aspirin 81 mg PO DAILY 06/04/19 01/25/21 calcitriol 0.25 mcg PO QAM 06/04/19 01/25/21 clopidogrel 75 mg PO DAILY 06/04/19 01/25/21 ergocalciferol (vitamin D2) 50,000 unit PO WEEKLY 06/04/19 01/25/21 [Vitamin D2] hydralazine 100 mg PO Q8H 06/04/19 01/25/21 nitroglycerin 0.4 mg SUBLINGUAL Q5-15M PRN 06/04/19 01/25/21 ezetimibe [Zetia] 10 mg PO DAILY 09/09/19 01/25/21 isosorbide mononitrate 30 mg PO DAILY 09/09/19 01/25/21 metoprolol tartrate 100 mg PO Q12H 09/09/19 01/25/21 ranolazine 500 mg tablet,extended 500 mg PO Q12H 09/24/19 01/25/21 release,12 hr cetirizine [All Day Allergy 10 mg PO DAILY 12/26/19 01/25/21 (cetirizine)] furosemide 80 mg PO BID 02/02/20 01/25/21 calcium acetate(phosphat bind) 667 mg PO QID 03/31/20 01/25/21 famotidine 40 mg PO HS 03/31/20 01/25/21 subcutaneous insulin pump #1 ea 08/24/20 01/25/21 atorvastatin 80 mg PO HS 11/26/20 01/25/21 colchicine [Colcrys] 0.6 mg PO QMWF 11/26/20 01/25/21 doxycycline hyclate 50 mg PO BID 11/26/20 01/25/21 meloxicam 7.5 mg PO BID 11/26/20 01/25/21 omeprazole 20 mg PO QAM 11/26/20 01/25/21 valacyclovir 500 mg PO TID 11/26/20 01/25/21 amlodipine 10 mg PO DAILY 01/11/21 01/25/21 Allergies Allergy/AdvReac Type Severity Reaction Status Date / Time allopurinol Allergy Severe Other Verified 02/01/21 17:04 iohexol Allergy Severe Difficulty Verified 02/01/21 17:04 [From CONTRAST - CT, XRAY] Breathing ticagrelor Allergy Intermediate Rash Verified 02/01/21 17:04 Review of Systems Constitutional: Constitutional: Denies chills, Denies fever(s), Denies headache(s) and Denies weakness Eyes: Eyes: Denies blurry vision ENT: Denies headache(s) and Denies neck pain Cardiovascular: Cardiovascular: Denies chest pain and Reports dyspnea Respiratory: Respiratory: Reports cough and Reports dyspnea Gastrointestinal: Gastrointestinal: Denies abdominal pain, Denies diarrhea, Denies nausea and Denies vomiting Genitourinary: Genitourinary: Denies hematuria and Denies dysuria Musculoskeletal: Musculoskeletal: Denies back pain and Denies neck pain Neurologic: Denies headache(s) and Denies weakness [facility] Past Medical History Medical History Anemia in chronic kidney disease Anxiety Arthritis Bronchitis Congestive heart failure Echocardiogram May 2017 EF of 50% with hypokinetic apical, inferior and basal inferior lateral segment, mild enlargement of left atrium. Coronary artery disease With history of several stents. Followed by [facility]. Deep venous thrombosis Chronic right popliteal DVT. Diabetic peripheral neuropathy Diabetic retinopathy End-stage renal disease on peritoneal dialysis Essential hypertension Fracture left lower ext Gastroesophageal reflux disease Gout Hyperlipidemia Obstructive sleep apnea With inconsistent CPAP use. Paroxysmal atrial fibrillation The patient denies Secondary hyperparathyroidism of renal origin Seizure X1 with etiology unknown Type 1 diabetes mellitus Onset around age 13. Surgical History Surgical History History of anterior cruciate ligament surgery (~2000) Left knee History of appendectomy (~2006) History of arthroscopy of left knee History of bilateral carpal tunnel release Right 05/03/2018. Left 06/02/2018. History of cardiac catheterization :August 2019 demonstrated patent stents with 40% stenosis of 1
[2021-02-01 17:29] LABS: Lactic Acid Reflex 1.7 mmol/L (0.7-2.1)
[2021-02-01 17:33] LABS: INR 0.9; Prothrombin Time 13.1 Seconds (11.1-14.7)
[2021-02-01 17:34] LABS: Partial Thromboplastin Time 28.5 SECONDS (22.3-36.8)
[2021-02-01 17:37] LABS: Anion Gap 17 mmol/L (8-16); Blood Urea Nitrogen 101 mg/dL (9-20); Calcium 7.9 mg/dL (8.4-10.2); Carbon Dioxide 21 mmol/L (22-30); Chloride 96 mmol/L (98-107); Estimated Glomerular Filt Rate 7; Glucose 501 mg/dL (75-110); Potassium 4.2 mmol/L (3.4-5.0); Sodium 134 mmol/L (137-145)
[2021-02-01 17:58] LABS: Beta-Hydroxybutyrate/Acetoacetate 1.66 mmol/L (0.02-0.27)
[2021-02-01 19:28] LABS: Glucose Point of Care > 500 mg/dl (65-105)
[2021-02-01] MEDS: INSULIN HUMAN REGULAR (*BKC) 100 UNITS in SODIUM CHLORIDE 0.9% IV 99 ML 8.8 UNITS IV CONT (19:30)
[2021-02-01 20:35] LABS: Glucose Point of Care > 500 mg/dl (65-105)
--- NOTE | 2021-02-01 21:03 | PM.IMHP ---
H&P: HPI History of Present Illness Date/Time: 02/01/21 21:03 Chief Complaint: Shortness of breath Narrative: This is a 50-year-old male with past medical history significant for end-stage renal disease on peritoneal dialysis, type 1 diabetes mellitus insulin dependent patient uses insulin pump, obesity, Hypertension, dyslipidemia, coronary artery disease status post stent placement on dual anti-platelet therapy. Patient presented to the emergency room due to the worsening shortness of breath bilateral, dry cough, lower extremity swelling increased abdominal girth, orthopnea, no chest pain no dizziness, no nausea no vomiting no abdominal. Patient states that he started feeling like this in the last 3 days or so no fevers no chills no rigors he has been compliant with his peritoneal dialysis nightly. Preliminary workup was significant for a chest x-ray with pulmonary edema patient also required supplemental oxygen by nasal cannula in the emergency room. Review of Systems Review of Systems: Narrative: Shortness of breath bilateral lower extremity swelling increased abdominal girth Constitutional: Constitutional: Denies chills, Reports difficulty sleeping, Denies fever(s) and Denies night sweats Eyes: Eyes: Denies change in vision ENT: Denies nasal congestion, Denies nasal discharge and Denies nasal obstruction Cardiovascular: Cardiovascular: Denies chest pain at rest, Denies chest pain with activity, Reports edema, Denies irregular heart rhythm, Reports leg edema, Denies lightheadedness, Denies radiating jaw, neck or arm pain, Denies palpitations, Reports dyspnea, Reports dyspnea on exertion and Reports orthopnea Respiratory: Respiratory: Reports cough, Denies excessive phlegm production and Denies wheezing Gastrointestinal: Gastrointestinal: Denies dyspepsia, Denies heartburn, Denies diarrhea, Denies nausea and Denies vomiting Genitourinary: Genitourinary: Denies dysuria Musculoskeletal: Musculoskeletal: Denies arthralgias, Denies muscle cramps and Denies muscle weakness Integumentary/Breasts: Skin/Breast: Reports rash (Resolving) Neurologic: Denies focal weakness and Denies Sensory deficit (Neuro) Psychiatric: Psychiatric: Reports no additional psychiatric complaints Endocrine: Endocrine: Reports no additional endocrine complaints Hematologic/Lymphatic: Hematologic/Lymphatic: Reports no additional hematologic/lymphatic complaints Allergic/Immunologic: Allergic/Immunologic: Reports no additional allergic/immunologic complaints PMFSH Past Medical History Medical History Anemia in chronic kidney disease Anxiety Arthritis Bronchitis Congestive heart failure Echocardiogram May 2017 EF of 50% with hypokinetic apical, inferior and basal inferior lateral segment, mild enlargement of left atrium. Coronary artery disease With history of several stents. Followed by [facility]. Deep venous thrombosis Chronic right popliteal DVT. Diabetic peripheral neuropathy Diabetic retinopathy End-stage renal disease on peritoneal dialysis Essential hypertension Fracture left lower ext Gastroesophageal reflux disease Gout Hyperlipidemia Obstructive sleep apnea With inconsistent CPAP use. Paroxysmal atrial fibrillation The patient denies Secondary hyperparathyroidism of renal origin Seizure X1 with etiology unknown Type 1 diabetes mellitus Onset around age 13. Surgical History Surgical History History of anterior cruciate ligament surgery (~2000) Left knee History of appendectomy (~2006) History of arthroscopy of left knee History of bilateral carpal tunnel release Right 05/03/2018. Left 06/02/2018. History of cardiac catheterization :August 2019 demonstrated patent stents with 40% stenosis of 1 vessel with no stents or angioplasty performed per patient report. :November 2018 at [facility]
--- NOTE | 2021-02-01 21:14 | PC.NURSE ---
SHAJI received from LUAN Biggs.
[2021-02-01 21:39] LABS: Glucose Point of Care 412 mg/dl (65-105)
--- NOTE | 2021-02-01 21:42 | ADMGEN ---
This patient, Juvenal Daigle Jr., was admitted to Intensive Care Unit-5 on 02/01/21 at 2123. Patient/family oriented to hospital policies and general routines including ID bracelet, bed and alarms, visiting hours, pain management, procedures, bathroom and other care routines, personal items, smoking policy, room service/diet, and visiting hours. Information on how to activate the Rapid Response Team has been discussed. Patient/Family are encouraged to report perceived risks to care and to ask questions if they do not understand what they are told or what they should do.
[2021-02-01 21:48] LABS: Anion Gap 18 mmol/L (8-16); Blood Urea Nitrogen 101 mg/dL (9-20); Calcium 8.1 mg/dL (8.4-10.2); Carbon Dioxide 19 mmol/L (22-30); Chloride 97 mmol/L (98-107); Estimated CRCL calculation 12 ml/min; Estimated Glomerular Filt Rate 7; Glucose 496 mg/dL (75-110); Sodium 134 mmol/L (137-145)
[2021-02-01] MEDS: SODIUM CHLORIDE 0.9% IV 1,000 ML 150 ML IV CONT (22:46)
[2021-02-01 22:58] LABS: Glucose Point of Care 402 mg/dl (65-105)
--- NOTE | 2021-02-01 22:59 | PC.NURSE ---
Peritoneal food quality tester in room to connect patient to overnight peritoneal dialysis.
[2021-02-02] VITALS (18 sets, daily range): BP systolic 152–184; BP diastolic 53–67; PULSE 59–69; RESP 13–20; TEMP 36.5–37.1; O2SAT 92–99; BMI 45.1
--- NOTE | 2021-02-02 | ECHO_ITS ---
Patient Info Name: Juvenal Daigle Age: 50 years : 1970 Gender: Male Ht: 70 in Wt: 300 lbs BSA: 2.66 m2 HR: 63 bpm BP: 176 / 58 mmHg Heart Rhythm: Sinus Rhythm Technical Quality: Good Exam Date: 02/02/2021 9:23 AM Exam Location: [facility] Patient Status: Inpatient Admit Date: 02/02/2021 Staff Ordering Physician: Jamar Reed MD Production Posting Clerk: Chris Jade, ROSEANN, RT Attending Provider: Jamar Reed MD Referring Physician: Derek PALMA; Exam Type: CA echo doppler color flow Study Info Indications R60.9 - Edema, unspecified Complete two-dimensional, color flow and Doppler transthoracic echocardiogram is performed. Strain analysis performed. Summary 1. Complete two-dimensional, color flow and Doppler transthoracic echocardiogram is performed. 2. Left ventricular chamber size and systolic function are normal with no regional wall motion abnormalities with an estimated ejection fraction of 60-65%. Grade 2 diastolic dysfunction is present. Mild LVH. Global longitudinal strain is borderline low at - 17%. 3. Left atrial chamber dimension is mildly enlarged. 4. Moderate calcification of the aortic root nad valve. 5. There is moderate aortic valve stenosis with a peak velocity of 2.9 m/s, mean gradient of 18 mmHg, and aortic valve area of 1.1 - 1.2 cm2. 6. Normal sinus rhythm. Left Ventricle Left ventricular chamber dimension is normal. Left ventricular systolic function is normal, estimated at 65-70%. There is mildly increased left ventricular wall thickness. Left ventricular septal wall motion is normal. The left ventricular diastolic function is grade II diastolic dysfunction. Global longitudinal strain is abnormal at -17 %. Left ventricular chamber size and systolic function are normal with no regional wall motion abnormalities with an estimated ejection fraction of 60-65%. Grade 2 diastolic dysfunction is present. Mild LVH. Global longitudinal strain is borderline low at - 17%. Right Ventricle Right ventricular chamber dimension is normal. Right ventricular systolic function is normal. Left Atria Left atrial chamber dimension is mildly enlarged. Right Atria Right atrial chamber dimension is normal. Aortic Valve The aortic valve is not well visualized. There is no aortic valve sclerosis. There is moderate aortic valve stenosis with a peak velocity of 2.9 m/s, mean gradient of 18 mmHg, and aortic valve area of 1.1 - 1.2 cm2. There is no aortic valve regurgitation. There is moderate aortic valve calcification. Pulmonic Valve The pulmonic valve is normal. There is no pulmonic valve stenosis. There is no pulmonic regurgitation. Mitral Valve The mitral valve has normal leaflets. There is no mitral valve stenosis. There is trace mitral valve regurgitation. Tricuspid Valve The tricuspid valve leaflets are normal. There is no significant tricuspid valve stenosis. There is trace tricuspid valve regurgitation. No pulmonary hypertension, estimated pulmonary arterial systolic pressure is Empty. Pericardium/Pleural The pericardium appears normal. There is no pericardial effusion. Inferior Vena Cava Normal inferior vena cava with >50% collapse upon inspiration consistent with Empty right atrial pressure, Empty. Aorta The aortic root size at the sinus of Valsalva is normal. The prox ascending aorta size is normal. Left Ventricular Outflow Tract
[2021-02-02 00:09] LABS: Glucose Point of Care 323 mg/dl (65-105)
[2021-02-02] MEDS: hydrALAZINE HCL 50 MG TABLET 100 MG PO ×4 (00:33→22:54)
[2021-02-02] MEDS: METOPROLOL TARTRATE 50 MG TAB 100 MG PO ×3 (00:33→20:07)
[2021-02-02] MEDS: ATORVASTATIN 40 MG TABLET 80 MG PO ×2 (00:33→20:06)
[2021-02-02] MEDS: FAMOTIDINE 20 MG TABLET 40 MG PO ×2 (00:33→20:07)
[2021-02-02 01:07] LABS: Glucose Point of Care 275 mg/dl (65-105)
[2021-02-02 01:47] LABS: Anion Gap 15 mmol/L (8-16); Blood Urea Nitrogen 106 mg/dL (9-20); Calcium 8.3 mg/dL (8.4-10.2); Carbon Dioxide 21 mmol/L (22-30); Chloride 102 mmol/L (98-107); Estimated CRCL calculation 14 ml/min; Estimated Glomerular Filt Rate 7; Glucose 268 mg/dL (75-110); Potassium 3.8 mmol/L (3.4-5.0); Sodium 138 mmol/L (137-145)
[2021-02-02 02:20] LABS: Glucose Point of Care 213 mg/dl (65-105)
[2021-02-02] MEDS: KCL 20 MEQ/D5/0.45% SOD CHL 1,000 ML 150 ML IV CONT ×2 (02:22→09:05)
[2021-02-02] MEDS: INSULIN HUMAN REGULAR (*BKC) 100 UNITS in SODIUM CHLORIDE 0.9% IV 99 ML 12.2 UNITS IV CONT (04:15)
[2021-02-02 04:30] LABS: Glucose Point of Care 175 mg/dl (65-105)
[2021-02-02 04:30] LABS: Glucose Point of Care 212 mg/dl (65-105)
[2021-02-02 04:41] LABS: Hematocrit 24.4 % (42.0-52.0); Hemoglobin 8.7 g/dL (14.0-18.0); Immature Platelet Fraction Pct 1.9 % (0.9-11.2); Mean Corpuscular HGB Conc 35.7 g/dl (32-36); Mean Corpuscular Hemoglobin 33.6 pg (26-34); Mean Corpuscular Volume 94.2 fl (80-100); Mean Platelet Volume 10.7 fl (7.4-10.4); Platelet Count Result 176 k/mm3 (150-375); Red Blood Count 2.59 M/mm3 (4.6-6.20); Red Cell Distribution Width 12.9 % (11.5-14.5); White Blood Count 10.3 K/mm3 (4.5-10.0)
[2021-02-02 04:54] LABS: Band Neutrophils Percent 2 % (0-6); Lymphocytes Absolute Manual 1.44 K/mm3 (1.1-4.5); Monocytes Absolute Manual 1.03 K/mm3 (0.1-0.90); Monocytes Percent Manual 10 % (3-9); Neutrophils Absolute Manual 7.82 K/mm3 (1.3-6.7); Neutrophils Percent Manual 74 % (46-73); Platelet Estimate Adequate (Adequate); Total Cells Counted 100
[2021-02-02 04:55] LABS: Anion Gap 15 mmol/L (8-16); Blood Urea Nitrogen 102 mg/dL (9-20); Calcium 8.5 mg/dL (8.4-10.2); Carbon Dioxide 22 mmol/L (22-30); Chloride 102 mmol/L (98-107); Estimated CRCL calculation 14 ml/min; Estimated Glomerular Filt Rate 8; Glucose 193 mg/dL (75-110); Potassium 3.9 mmol/L (3.4-5.0); Sodium 139 mmol/L (137-145)
[2021-02-02 05:23] LABS: Glucose Point of Care 174 mg/dl (65-105)
[2021-02-02 05:57] LABS: Glucose Point of Care 137 mg/dl (65-105)
[2021-02-02 06:08] LABS: Add Urine Microscopic? YES; Appearance Urine Clear (Clear); Bilirubin Urine Negative (Negative); Blood Urine Negative (Negative); Color Urine Yellow (Yellow); Glucose Urine UA 3+ mg/dL (Negative); Ketones Urine Negative (Negative); Leukocyte Esterase Ur Negative LEU/UL (Negative); Mucus Urine Rare /lpf; Nitrate Urine Negative (Negative); Protein Urine 1+ mg/dL (Negative); Specific Grav Ur 1.011 (1.001-1.035); Urobilinogen Urine Negative mg/dL (<2.0); WBC Urine 0-3 /hpf
[2021-02-02 07:05] LABS: Glucose Point of Care 118 mg/dl (65-105)
[2021-02-02 07:25] LABS: Glucose Point of Care 488 mg/dl (65-105)
--- NOTE | 2021-02-02 08:21 | PM.CNNEP ---
Assessment and Plan Assessment and plan (1) ESRD (end stage renal disease) on dialysis: Code(s): N18.6 - End stage renal disease; Z99.2 - Dependence on renal dialysis Status: Acute Assessment and Plan: Tiffanie has end-stage renal disease. He is on peritoneal dialysis. We discussed that when he use red bags, her sugars will rise because of the sugar in the bags. This high sugar will lessen the capability for the dialysate to remove fluid. The best way to remove fluid would be to keep the sugars under good control and limit salt and water intake so that he does not have that much to remove and he can use only yellow or green bags. Will use red bags tonight but he is on insulin drip so this will enable us to get more fluid off. (2) Fluid overload: Code(s): E87.70 - Fluid overload, unspecified Status: Acute Assessment and Plan: The patient has volume overload. He does have a high intake but also the diabetes makes it difficult to get all the fluid off. (3) DKA (diabetic ketoacidoses): Qualifiers: Diabetes mellitus complication detail: without coma Diabetes mellitus type: type 2 Qualified Code(s): E11.10 - Type 2 diabetes mellitus with ketoacidosis without coma Code(s): E11.10 - Type 2 diabetes mellitus with ketoacidosis without coma Status: Acute Assessment and Plan: The patient has DKA. Urine is clear. Chest x-ray shows some possible pneumonia? He does not look toxic. He is on doxycycline. (4) Obstructive sleep apnea: Code(s): G47.33 - Obstructive sleep apnea (adult) (pediatric) Status: Acute Assessment and Plan: He does not use a CPAP machine consistently. This is part of the problem with the fluid as well. (5) Anemia in chronic kidney disease: Code(s): N18.9 - Chronic kidney disease, unspecified; D63.1 - Anemia in chronic kidney disease Status: Acute (6) Renal osteodystrophy: Code(s): N25.0 - Renal osteodystrophy Status: Acute Assessment and Plan: Will check a phosphorus level. History of Present Illness Reason for Consult Consult date: 02/02/21 Chief Complaint Chief complaint: dka History of Present Illness Narrative: Juvenal is a very pleasant 50-year-old gentleman who has multiple medical problems including end-stage renal disease on peritoneal dialysis, hypertension, diabetes, renal osteodystrophy, anemia of chronic kidney disease, history of DVT, GERD, gout, hyperlipidemia, sleep apnea and does not always use the machine, paroxysmal atrial fibrillation, coronary artery disease status post stents, congestive heart failure. The patient was doing pretty well a couple of days ago. He did note that he had more fluid on and so he used a red bag the night before last. His sugar was high before he even use the red bag. Yesterday sugars were reading high all day long. He came into the emergency room and his sugar was high he is here as well. His beta hydroxybutyrate is a little bit high so he was admitted to the ICU and put on insulin drip. He had peritoneal dialysis last night. He says that he has been a little more swollen than usual. He has been a little short of breath as well. That is why he used to the red bag it the night before last. He did give himself extra insulin the night before last when his sugar was high before he used the red bag. He has had some shortness of breath and some cough. He does not have a fever. He checks his temperature every morning per dialysis protocol. No belly pain nausea or vomiting. He does have a diffuse superficial desquamation 0 current because he had a cardiac catheterization recently and he is allergic to the dye. Review of Systems Constitutional: Constitutional: Reports no additional constitutional complaints Eyes: Eyes: Reports no additional eye complaints ENT: Reports system reviewed and no additional complaints, except as documented Cardiovascular: Cardi
[2021-02-02] MEDS: DOXYCYCLINE HYCLATE 50 MG CAPSULE PO ×2 (08:30→20:09)
[2021-02-02] MEDS: ASPIRIN 81 MG CHEWABLE TABLET PO (08:30)
[2021-02-02] MEDS: CLOPIDOGREL BISULFATE 75 MG TABLET PO (08:31)
[2021-02-02] MEDS: CALCIUM ACETATE 667 MG TABLET PO ×4 (08:31→20:06)
[2021-02-02] MEDS: calcitrioL 0.25 MCG CAPSULE PO (08:31)
[2021-02-02] MEDS: amLODIPine BESYLATE 5 MG TABLET 10 MG PO (08:31)
[2021-02-02] MEDS: FUROSEMIDE INJ 100 MG/10 ML VIAL 120 MG IV PUSH ×2 (08:31→16:47)
--- NOTE | 2021-02-02 08:31 | PM.EVENT ---
Event Note Event Note Event Note: The patient is on peritoneal dialysis. He is tolerating it well. The fluid is clear. He was seen at 8:00 a.m.
[2021-02-02] MEDS: valACYclovir HCL 500 MG TABLET PO ×3 (08:32→16:47)
[2021-02-02] MEDS: LORATADINE 10 MG TABLET PO (08:32)
[2021-02-02] MEDS: PANTOPRAZOLE 40 MG TABLET PO (08:32)
[2021-02-02] MEDS: ISOSORBIDE MONONITRATE 30 MG TAB.ER.24H PO (08:32)
[2021-02-02 08:33] LABS: Glucose Point of Care 131 mg/dl (65-105)
--- NOTE | 2021-02-02 09:01 | WPDCNINT ---
Assessment and Plan Assessment and plan (1) DKA (diabetic ketoacidoses): Qualifiers: Diabetes mellitus complication detail: without coma Diabetes mellitus type: type 2 Qualified Code(s): E11.10 - Type 2 diabetes mellitus with ketoacidosis without coma Code(s): E11.10 - Type 2 diabetes mellitus with ketoacidosis without coma Status: Acute Assessment and Plan: Diabetic ketoacidosis, patient has a history of type 1 diabetes -he has been using and dialysate with elevated sugars which could be a reason for his DKA -patient has an insulin pump at home -patient presented with elevated blood sugars, elevated beta hydroxybutyrate an elevated anion gap. Started on insulin infusion per DKA protocol. Will transition to long-acting insulin and sliding scale insulin once anion gap closes -patient may require diabetic Education along with nutrition Education (2) ESRD (end stage renal disease) on dialysis: Code(s): N18.6 - End stage renal disease; Z99.2 - Dependence on renal dialysis Status: Acute Assessment and Plan: Patient with end-stage renal disease peritoneal dialysis which he states he has been doing it regularly home -nephrology following, -patient needs to have more fluid removed, nephrology aware (3) Fluid overload: Code(s): E87.70 - Fluid overload, unspecified Status: Acute Assessment and Plan: Likely related to end-stage renal disease (4) Obstructive sleep apnea: Code(s): G47.33 - Obstructive sleep apnea (adult) (pediatric) Status: Acute Assessment and Plan: Obstructive sleep apnea, patient does not wear his CPAP regularly -discussed with him regarding wearing his CPAP regularly at night and while asleep during the day (5) Essential hypertension: Code(s): I10 - Essential (primary) hypertension Status: Chronic Assessment and Plan: Continue antihypertensives (6) Coronary artery disease: Code(s): I25.10 - Atherosclerotic heart disease of [place] coronary artery without angina pectoris Status: Acute Assessment and Plan: History of coronary artery disease, with recent cardiac catheterization, patient is allergic to the dye, with his not premedicate him, now he has desquamation of skin from head to his torso. Additional Plan Discussed with patient updated with his condition and plan of care. He is aware that he is currently on insulin infusion and will be weaned off once his anion gap normalizes. I answered all questions patient has also spoken to the business architect Code status: Full code Critical care time spent: 44 minutes This dictation may have been done utilizing a voice recognition system. Attempts have been made to correct errors. However, there may be uncorrected grammatical, spelling, and recognition errors present. Due to a high probability of clinically significant, life threatening deterioration, the patient required my highest level of preparedness to intervene emergently and I personally spent this critical care time directly and personally managing the patient. This critical care time included obtaining a history; examining the patient; pulse oximetry; ordering and review of studies; arranging urgent treatment with development of a management plan; evaluation of patient's response to treatment; frequent reassessment; and discussions with other providers. It was exclusive of separately billable procedures and treating other patients and teaching time. Please see Assessment and Plan section and the rest of the note for further information on patient assessment and treatment [employer] Bridge Assembler Consult Note Consult date: 02/02/21 Time Seen: 07:06 Reason for consult: Diabetic ketoacidosis, shortness of breath, volume overload HPI: Juvenal Daigle Jr. is a 50 year old male with significant past medical history of anemia, congestive heart failure, coronary artery disease in 2017 and 2019 diabetes type 1, end-stage renal
[2021-02-02 09:04] LABS: Glucose Point of Care 129 mg/dl (65-105)
[2021-02-02 10:05] LABS: Glucose Point of Care 107 mg/dl (65-105)
[2021-02-02] MEDS: polyethylene glycoL 3350 17 GM POWD.PACK PO (10:27)
[2021-02-02 10:37] LABS: Anion Gap 12 mmol/L (8-16); Blood Urea Nitrogen 89 mg/dL (9-20); Calcium 8.6 mg/dL (8.4-10.2); Carbon Dioxide 25 mmol/L (22-30); Chloride 102 mmol/L (98-107); Estimated CRCL calculation 15 ml/min; Estimated Glomerular Filt Rate 7; Glucose 107 mg/dL (75-110); Potassium 3.4 mmol/L (3.4-5.0); Sodium 139 mmol/L (137-145)
[2021-02-02 11:05] LABS: Glucose Point of Care 103 mg/dl (65-105)
[2021-02-02] MEDS: INSULIN GLARGINE (*BKC) 100 UNITS/ML 35 UNITS SUB-Q (11:07)
[2021-02-02 12:02] LABS: Glucose Point of Care 104 mg/dl (65-105)
[2021-02-02] MEDS: cloNIDine HCL 0.2 MG TABLET PO (12:15)
--- NOTE | 2021-02-02 13:11 | PCNSR ---
On 02/02/21, the student, Rayna Gonzalez, provided care and completed [facility] documentation on this patient. I have reviewed the student's documentation and agree with the findings.
[2021-02-02 13:37] LABS: Anion Gap 14 mmol/L (8-16); Blood Urea Nitrogen 87 mg/dL (9-20); Calcium 8.3 mg/dL (8.4-10.2); Carbon Dioxide 23 mmol/L (22-30); Chloride 101 mmol/L (98-107); Estimated CRCL calculation 15 ml/min; Estimated Glomerular Filt Rate 8; Glucose 119 mg/dL (75-110); Potassium 3.4 mmol/L (3.4-5.0); Sodium 138 mmol/L (137-145)
--- NOTE | 2021-02-02 13:41 | PM.IMPN ---
Progress Note: A&P Assessment and Plan (1) Diabetes mellitus with hyperosmolarity without hyperglycemic hyperosmolar nonketotic coma: Code(s): E11.00 - Type 2 diabetes mellitus with hyperosmolarity without nonketotic hyperglycemic-hyperosmolar coma ([facility]) Status: Acute Assessment and Plan: Patient is currently on insulin drip for honk SUPPORTIVE CARE CONTINUE TO MONITOR (2) Fluid overload: Code(s): E87.70 - Fluid overload, unspecified Status: Acute Assessment and Plan: PATIENT STATES THAT HE HAS BEEN COMPLIANT WITH PERITONEAL DIALYSIS NIGHTLY WILL CONSULT NEPHROLOGY (3) ESRD (end stage renal disease) on dialysis: Code(s): N18.6 - End stage renal disease; Z99.2 - Dependence on renal dialysis Status: Acute Assessment and Plan: ON PERITONEAL DIALYSIS (4) Acute dyspnea: Code(s): R06.00 - Dyspnea, unspecified Status: Acute Assessment and Plan: LIKELY SECONDARY TO FLUID OVERLOAD SUPPORTIVE CARE (5) Obstructive sleep apnea: Code(s): G47.33 - Obstructive sleep apnea (adult) (pediatric) Status: Acute Assessment and Plan: CPAP AT NIGHTTIME (6) Essential hypertension: Code(s): I10 - Essential (primary) hypertension Status: Chronic Assessment and Plan: CONTINUE HOME MEDS CONTINUE TO MONITOR (7) Type 1 diabetes mellitus: Code(s): E10.9 - Type 1 diabetes mellitus without complications Status: Acute Assessment and Plan: WILL restart INSULIN ASPART insulin pump Might benefit from diabetic teaching consult (8) Coronary artery disease: Qualifiers: Coronary Disease-Associated Artery/Lesion type: [place] artery [place] vs. transplanted heart: [place] heart Associated angina: without angina Qualified Code(s): I25.10 - Atherosclerotic heart disease of [place] coronary artery without angina pectoris Code(s): I25.10 - Atherosclerotic heart disease of [place] coronary artery without angina pectoris Status: Acute Assessment and Plan: Patient had left heart catheterization with stent placement at outside hospital Patient on dual anti-platelet therapy Resume home meds Continue to monitor (9) Anemia of chronic renal failure, stage 4 (severe): Code(s): N18.4 - Chronic kidney disease, stage 4 (severe); D63.1 - Anemia in chronic kidney disease Status: Acute Assessment and Plan: Procrit as per nephrology (10) Allergic reaction: Qualifiers: Encounter type: initial encounter Qualified Code(s): T78.40XA - Allergy, unspecified, initial encounter Code(s): T78.40XA - Allergy, unspecified, initial encounter Status: Acute Assessment and Plan: Resolving Subjective Date/time seen: 02/02/21 13:41 Interval history: 50-year-old male with past medical history significant for end-stage renal disease on peritoneal dialysis, type 1 diabetes mellitus insulin dependent patient uses insulin pump, obesity, Hypertension, dyslipidemia, coronary artery disease status post stent placement on dual anti-platelet therapy. Pt improving mild SOB, pt is in icu Review of Systems Review of Systems: All systems reviewed & are unremarkable except as noted in HPI and below Exam Const: General: cooperative, comfortable, well developed, alert, awake and ill appearing chronically Nutritional Appearance: overweight Orientation/consciousness: patient oriented x3 Resp: Auscultation: crackles bilateral Cardio: Jugular venous distension: no JVD Rate: regular rate Rhythm: regular rhythm Heart sounds: S1 normal heart sound present and S2 normal heart sound present Skin: Rashes: other (Resolving rash mainly in the face and a scalp) Wounds: no wounds Neuro: General: patient oriented x3 and CN's II-XI intact bilaterally Cranial nerves: Yes CN's II-XII intact bilaterally and Yes Equal, round and reactive pupils present Cognition (Neuro): normal cognition Speech: n
[2021-02-02 16:20] LABS: Glucose Point of Care 296 mg/dl (65-105)
[2021-02-02] MEDS: NITROGLYCERIN SL 0.4 MG TABLET SUBLINGUAL ×2 (16:22→16:30)
--- NOTE | 2021-02-02 16:31 | ECG_ITS ---
Measurements Intervals [place] Rate: 71 P: 38 MN: 180 QRS: -34 QRSD: 113 T: 77 QT: 443 QTc: 482 Interpretive Statements SINUS RHYTHM LEFT AXIS DEVIATION INTRAVENTRICULAR CONDUCTION DELAY BORDERLINE R WAVE PROGRESSION, ANTERIOR LEADS BORDERLINE ST-T WAVE ABNORMALITY- HIGH LATERAL LEADS BASELINE ARTIFACT- II, III, AVF BORDERLINE ECG Electronically Signed On 02-03-2021 7:49:53 CDT by Doc Dorantes D.O.
[2021-02-02] MEDS: INSULIN ASPART (*BKC) 100 UNITS/ML SUB-Q (16:48)
[2021-02-02] MEDS: MORPHINE SULFATE (*CRX) 2 MG/ML INJ IV PUSH (17:03)
[2021-02-02] MEDS: EPOETIN ALFA-EPBX 10,000 UNITS/ML VIAL 10000 UNITS SUB-Q (17:06)
--- NOTE | 2021-02-02 17:14 | PC.NURSE ---
Patient c/o chest pain. Rated 6/10. 1620-nitro sl given x 1. BP 158/61. Still rates pain 6/10. 1630-nitro sl given x 1. BP 154/76. Now rates pain 5/10. EKG completed.
--- NOTE | 2021-02-02 17:23 | PC.NURSE ---
1649-Dr. Singh at bedside to evaluate patient.
[2021-02-02 18:06] LABS: Troponin I 0.047 ng/mL (0.000-0.034)
[2021-02-02] MEDS: HEPARIN SODIUM 5,000 UNITS/ML VIAL 5000 UNITS SUB-Q (20:08)
[2021-02-02] MEDS: INSULIN ASPART (*BKC) 100 UNITS/ML 12 UNITS SUB-Q (23:27)
[2021-02-02 23:28] LABS: Glucose Point of Care > 500 mg/dl (65-105)
[2021-02-02 23:41] LABS: Anion Gap 15 mmol/L (8-16); Blood Urea Nitrogen 88 mg/dL (9-20); Calcium 8.8 mg/dL (8.4-10.2); Carbon Dioxide 21 mmol/L (22-30); Chloride 99 mmol/L (98-107); Estimated CRCL calculation 16 ml/min; Estimated Glomerular Filt Rate 8; Glucose 605 mg/dL (75-110); Potassium 4.3 mmol/L (3.4-5.0); Sodium 135 mmol/L (137-145)
[2021-02-03] VITALS (8 sets, daily range): BP systolic 161–190; BP diastolic 61–76; PULSE 66–91; RESP 12–102; TEMP 36.7–37.1; O2SAT 95–100
[2021-02-03 03:02] LABS: Glucose Point of Care > 500 mg/dl (65-105)
[2021-02-03] MEDS: INSULIN ASPART (*BKC) 100 UNITS/ML 15 UNITS SUB-Q (03:21)
[2021-02-03 04:39] LABS: Hemoglobin 9.1 g/dL (14.0-18.0); Mean Corpuscular HGB Conc 33.7 g/dl (32-36); Mean Corpuscular Hemoglobin 33.3 pg (26-34); Mean Corpuscular Volume 98.9 fl (80-100); Mean Platelet Volume 9.9 fl (7.4-10.4); Platelet Count Result 172 k/mm3 (150-375); Red Blood Count 2.73 M/mm3 (4.6-6.20); Red Cell Distribution Width 13.2 % (11.5-14.5); White Blood Count 6.1 K/mm3 (4.5-10.0)
[2021-02-03 04:55] LABS: Hemoglobin A1C 8.4 % (<5.7)
[2021-02-03] MEDS: hydrALAZINE HCL 50 MG TABLET 100 MG PO ×3 (05:23→20:12)
[2021-02-03 05:24] LABS: Albumin Level 3.5 g/dL (3.5-5.1); Anion Gap 13 mmol/L (8-16); Blood Urea Nitrogen 79 mg/dL (9-20); Calcium 8.8 mg/dL (8.4-10.2); Carbon Dioxide 27 mmol/L (22-30); Chloride 98 mmol/L (98-107); Estimated CRCL calculation 16 ml/min; Estimated Glomerular Filt Rate 8; Glucose 538 mg/dL (75-110); Phosphorus 5.2 mg/dL (2.5-4.5); Potassium 3.6 mmol/L (3.4-5.0); Sodium 138 mmol/L (137-145)
[2021-02-03 05:49] LABS: Glucose Point of Care 407 mg/dl (65-105)
[2021-02-03] MEDS: DOXYCYCLINE HYCLATE 50 MG CAPSULE PO ×2 (06:16→20:13)
[2021-02-03] MEDS: cloNIDine HCL 0.2 MG TABLET PO (06:16)
--- NOTE | 2021-02-03 07:06 | P.CDI_ITS ---
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 These are two different diagnosis codes. Please clarify if diagnosis is: * DKA * DM with hyperosmolarity without hyperglycemic hyperosmolar nonketotic coma <Rehana Enamorado RN - Last Filed: 02/03/21 07:20> DM with hyperosmolarity without hyperglycemic hyperosmolar nonketotic coma <Ana Maria Singh MD - Last Filed: 02/03/21 16:19>
[2021-02-03 07:40] LABS: Glucose Point of Care 385 mg/dl (65-105)
[2021-02-03] MEDS: CALCIUM ACETATE 667 MG TABLET PO ×4 (08:19→20:13)
[2021-02-03] MEDS: INSULIN ASPART (*BKC) 100 UNITS/ML SUB-Q ×3 (08:19→16:50)
[2021-02-03] MEDS: PANTOPRAZOLE 40 MG TABLET PO (08:20)
[2021-02-03] MEDS: FUROSEMIDE INJ 100 MG/10 ML VIAL 120 MG IV PUSH (08:20)
[2021-02-03] MEDS: METOPROLOL TARTRATE 50 MG TAB 100 MG PO ×2 (08:21→20:12)
[2021-02-03] MEDS: CLOPIDOGREL BISULFATE 75 MG TABLET PO (08:21)
[2021-02-03] MEDS: COLCHICINE 0.6 MG TABLET PO (08:21)
[2021-02-03] MEDS: ASPIRIN 81 MG CHEWABLE TABLET PO (08:21)
[2021-02-03] MEDS: calcitrioL 0.25 MCG CAPSULE PO (08:22)
[2021-02-03] MEDS: amLODIPine BESYLATE 5 MG TABLET 10 MG PO (08:22)
[2021-02-03] MEDS: HEPARIN SODIUM 5,000 UNITS/ML VIAL 5000 UNITS SUB-Q ×2 (08:23→20:13)
[2021-02-03] MEDS: ISOSORBIDE MONONITRATE 30 MG TAB.ER.24H PO (08:23)
[2021-02-03] MEDS: LORATADINE 10 MG TABLET PO (08:23)
--- NOTE | 2021-02-03 09:15 | PM.CNCAR ---
Assessment and Plan Assessment and plan (1) Chest pain: Code(s): R07.9 - Chest pain, unspecified Status: Acute Assessment and Plan: Episode of chest pain. Elevation compared to his chronically elevated troponins (due to his kidney disease). He did have some slight ST changes laterally on his EKG so this may have been an episode of angina. He also has a history of a variety of different chest pains which may not be cardiac in origin, as well as GERD. No further workup needed as the patient appears stable on medical therapy. FU w/ his usual back facer, Dr. Ortega, on discharge. (2) Coronary artery disease: Code(s): I25.10 - Atherosclerotic heart disease of [place] coronary artery without angina pectoris Status: Acute Assessment and Plan: History of stents, recent catheterization 01/21/2021 showed mild progression, continue medical therapy, atorvastatin, clopidogrel, isosorbide, ranolazine etc.. (3) Diabetic ketoacidosis: Code(s): E11.10 - Type 2 diabetes mellitus with ketoacidosis without coma Status: Acute Assessment and Plan: Evaluation and treatment per hospitalist (4) End-stage renal disease on peritoneal dialysis: Code(s): N18.6 - End stage renal disease; Z99.2 - Dependence on renal dialysis Status: Acute Assessment and Plan: Followed by Dr. Rodriguez (5) History of sleep apnea: Code(s): Z86.69 - Personal history of other diseases of the nervous system and sense organs Status: Chronic Assessment and Plan: Not consistently compliant with CPAP. Compliance encouraged. (6) Hyperlipidemia: Code(s): E78.5 - Hyperlipidemia, unspecified Status: Chronic Assessment and Plan: Takes atorvastatin, follow up with usual back facer (7) HTN (hypertension): Code(s): I10 - Essential (primary) hypertension Status: Acute Assessment and Plan: Runs hypertensive here, has been started on his hydralazine, clonidine, amlodipine etc.. (8) Allergy to intravenous contrast: Code(s): Z91.041 - Radiographic dye allergy status Status: Acute Assessment and Plan: Desquamating rash and swelling secondary to IV contrast allergy. Rash is healing, no evidence of secondary infection. History of Present Illness History of Present Illness Consult date/time: 02/03/21 09:15 Requesting physician: Ana Maria Singh MD Consult reason: chest pain Reason For Visit: dka Narrative: Date of service: 02/03/2021 Juvenal Daigle is a 50-year-old male with history of CAD and end-stage renal disease on peritoneal dialysis who were asked to see at the request of Dr. Singh for advice and opinion regarding chest discomfort, in consultation. Usually follows with Dr. Ortega for his cardiac issues and Dr. Castro for his renal issues at [place]. However when he is [facility] as he prefers [facility] to [facility] [place]. He has a long history of cardiac problems, coronary stents and multiple admissions for chest pain, heart failure,DM and DKA, etc. History of stent to the distal RCA at [facility] 2017 and another PCI of the right coronary system by Dr. Ortega in 2019. Unclear if other interventions on the RCA. The patient has a lot of chronic chest pain and ROONEY and apparently an abnormal stress test recently. He underwent cardiac catheterization on 01/21/[address] Ortega. This showed minimal change compared to his last catheterization in August 2019 with patent stents in the RCA and PDA. He had new occlusion of the posterior lateral which had been jailed from a previous stent, and development of 50% stenosis of a secondary
--- NOTE | 2021-02-03 11:04 | PM.PNNEP ---
Progress Note: A&P Assessment and Plan (1) ESRD (end stage renal disease) on dialysis: Code(s): N18.6 - End stage renal disease; Z99.2 - Dependence on renal dialysis Status: Acute Assessment and Plan: Tiffanie has end-stage renal disease. He is on peritoneal dialysis. Still volume overloaded. Will increase Lasix. Electrolytes okay. (2) Fluid overload: Code(s): E87.70 - Fluid overload, unspecified Status: Acute Assessment and Plan: The patient has volume overload. Will increase the diuretics. (3) DKA (diabetic ketoacidoses): Qualifiers: Diabetes mellitus complication detail: without coma Diabetes mellitus type: type 2 Qualified Code(s): E11.10 - Type 2 diabetes mellitus with ketoacidosis without coma Code(s): E11.10 - Type 2 diabetes mellitus with ketoacidosis without coma Status: Acute Assessment and Plan: The patient has DKA. CO2 is now higher. Chest x-ray shows some possible pneumonia? He does not look toxic. He is on doxycycline. (4) Obstructive sleep apnea: Code(s): G47.33 - Obstructive sleep apnea (adult) (pediatric) Status: Acute Assessment and Plan: He does not use a CPAP machine consistently. This is part of the problem with the fluid as well. (5) Anemia in chronic kidney disease: Code(s): N18.9 - Chronic kidney disease, unspecified; D63.1 - Anemia in chronic kidney disease Status: Acute Assessment and Plan: Hemoglobin is 9.1. On EPO. (6) Renal osteodystrophy: Code(s): N25.0 - Renal osteodystrophy Status: Acute Assessment and Plan: Phosphorus levels target Subjective Date/time seen: 02/03/21 11:04 Interval history: patient feels better today. Sugar still high. Did make some urine today. He filled the flask cup about half way. Review of Systems Cardiovascular: Cardiovascular: Reports no additional cardiovascular complaints Respiratory: Respiratory: Reports no additional respiratory complaints Gastrointestinal: Gastrointestinal: Reports no additional gastrointestinal complaints Genitourinary: Genitourinary: Reports no additional male genitourinary complaints Exam Narrative: Exam Narrative: WDWN in NAD skin no rash head ncat lungs clear cor reg no rub abd BS+ nontender and soft ext 1+ edema. Objective Data Vital Signs Vital Signs: Vital Signs - 24 hr 02/02/21 12:00 02/02/21 14:00 02/02/21 16:00 Temperature 36.8 C 36.9 C Pulse Rate 64 67 67 Respiratory Rate 16 16 18 Blood Pressure 184/61 H 152/57 H 171/53 H Pulse Oximetry 93 93 96 02/02/21 20:00 02/02/21 20:07 02/02/21 22:55 Temperature 36.5 C Pulse Rate 69 69 Respiratory Rate 14 Blood Pressure 167/57 H 155/55 H Pulse Oximetry 96 99 02/02/21 23:35 02/03/21 05:20 02/03/21 06:16 Temperature 36.8 C Pulse Rate 62 71 Respiratory Rate 20 14 Blood Pressure 155/55 H 190/65 H 184/63 H Pulse Oximetry 94 97 02/03/21 08:00 02/03/21 08:21 Temperature 37.1 C Pulse Rate 70 70 Respiratory Rate 102 H Blood Pressure 167/61 H Pulse Oximetry 100 Intake/Output Intake/Output: Intake & Output 01/31/21 02/01/21 02/02/21 02/03/21 23:59 23:59 23:59 23:59 Intake Total 2410.7 880 Output Total 1650 2125 Balance 760.7 -1245 Meds/Results Medications: Active Medications Generic Name Dose Route Start Last Admin Trade Name Santa PRN Reason Stop Dose Admin Amlodipine Besylate 10 mg 02/02/21 09:00 02/03/21 08:22 Amlodipine Besylate 5 Mg Tablet PO 10 mg DAILY [facility] Administration Aspirin 81 mg 02/02/21 08:00 02/03/21 08:21 Aspirin 81 Mg Chewable Tablet PO 81 mg DAILY@0800 [facility] Administration Atorvastatin Calcium 80 mg 02/01/21 23:20 02/02/21 20:06 Atorvastatin 40 Mg Tablet PO 80 mg HS [facility] Administration Calcitriol 0.25 mcg 02/02/21 09:00 02/03/21 08:22 Calcitriol 0.25 Mcg Capsule [facility].25 [facility] [place]
[2021-02-03 12:57] LABS: Glucose Point of Care 392 mg/dl (65-105)
[2021-02-03] MEDS: valACYclovir HCL 500 MG TABLET PO ×2 (12:58→16:44)
--- NOTE | 2021-02-03 13:21 | PCNSR ---
On 02/03/21, the student, Rayna Gonzalez, provided care and completed [facility] documentation on this patient. I have reviewed the student's documentation and agree with the findings.
--- NOTE | 2021-02-03 14:55 | PM.IMPN ---
Progress Note: A&P Assessment and Plan (1) Diabetes mellitus with hyperosmolarity without hyperglycemic hyperosmolar nonketotic coma: Code(s): E11.00 - Type 2 diabetes mellitus with hyperosmolarity without nonketotic hyperglycemic-hyperosmolar coma ([facility]) Status: Acute Assessment and Plan: on insulin sub Q now SUPPORTIVE CARE CONTINUE TO MONITOR (2) Fluid overload: Code(s): E87.70 - Fluid overload, unspecified Status: Acute Assessment and Plan: PATIENT STATES THAT HE HAS BEEN COMPLIANT WITH PERITONEAL DIALYSIS NIGHTLY WILL CONSULT NEPHROLOGY (3) ESRD (end stage renal disease) on dialysis: Code(s): N18.6 - End stage renal disease; Z99.2 - Dependence on renal dialysis Status: Acute Assessment and Plan: ON PERITONEAL DIALYSIS (4) Acute dyspnea: Code(s): R06.00 - Dyspnea, unspecified Status: Acute Assessment and Plan: LIKELY SECONDARY TO FLUID OVERLOAD SUPPORTIVE CARE (5) Obstructive sleep apnea: Code(s): G47.33 - Obstructive sleep apnea (adult) (pediatric) Status: Acute Assessment and Plan: CPAP AT NIGHTTIME (6) Essential hypertension: Code(s): I10 - Essential (primary) hypertension Status: Chronic Assessment and Plan: CONTINUE HOME MEDS CONTINUE TO MONITOR (7) Type 1 diabetes mellitus: Code(s): E10.9 - Type 1 diabetes mellitus without complications Status: Acute Assessment and Plan: WILL restart INSULIN ASPART Might benefit from diabetic teaching consult (8) Coronary artery disease: Qualifiers: Coronary Disease-Associated Artery/Lesion type: [place] artery [place] vs. transplanted heart: [place] heart Associated angina: without angina Qualified Code(s): I25.10 - Atherosclerotic heart disease of [place] coronary artery without angina pectoris Code(s): I25.10 - Atherosclerotic heart disease of [place] coronary artery without angina pectoris Status: Acute Assessment and Plan: Patient had left heart catheterization with stent placement at outside hospital Patient on dual anti-platelet therapy Resume home meds Continue to monitor (9) Anemia of chronic renal failure, stage 4 (severe): Code(s): N18.4 - Chronic kidney disease, stage 4 (severe); D63.1 - Anemia in chronic kidney disease Status: Acute Assessment and Plan: Procrit as per nephrology (10) Allergic reaction: Qualifiers: Encounter type: initial encounter Qualified Code(s): T78.40XA - Allergy, unspecified, initial encounter Code(s): T78.40XA - Allergy, unspecified, initial encounter Status: Acute Assessment and Plan: Resolving Subjective Date/time seen: 02/03/21 14:55 Interval history: 50-year-old male with past medical history significant for end-stage renal disease on peritoneal dialysis, type 1 diabetes mellitus insulin dependent patient uses insulin pump, obesity, Hypertension, dyslipidemia, coronary artery disease status post stent placement on dual anti-platelet therapy. Pt had some chest pain yesterday trop ordered, cardiology consult made. Pt looks very edematous and swollen but is improving Review of Systems Review of Systems: All systems reviewed & are unremarkable except as noted in HPI and below Exam Const: General: cooperative Nutritional Appearance: overweight Orientation/consciousness: patient oriented x3 Other: edematous head to toe Eyes: Pupils: Equal, round and reactive pupils present Resp: Auscultation: crackles bilateral Cardio: Jugular venous distension: no JVD Rate: regular rate Rhythm: regular rhythm Heart sounds: S1 normal heart sound present and S2 normal heart sound present Skin: Rashes: other (Resolving rash mainly in the face and a scalp) Wounds: no wounds Neuro: General: patient oriented x3 and CN's II-XI intact bilaterally Cranial nerves: Yes CN's II-XII intact bilaterally and Yes Equal, round and iris
[2021-02-03] MEDS: BUMETANIDE INJ 2.5 MG/10 ML VIAL 2 MG IV PUSH (16:47)
[2021-02-03 17:00] LABS: Glucose Point of Care 373 mg/dl (65-105)
--- NOTE | 2021-02-03 18:15 | PC.NURSE ---
This patient, Juvenal Daigle Jr., was received from ICU on 02/03/21 at 1815. Received report from LUAN Albarran. Patient/family oriented to unit policies and routines.
--- NOTE | 2021-02-03 18:15 | PC.NURSE ---
This patient, Juvenal Daigle Jr., was transferred to [facility] on 02/03/21 at 1811 via wheelchair without issue. Personal belongings sent with patient. Report given to LUAN Daniel. Appropriate documentation sent with patient.
[2021-02-03] MEDS: INSULIN GLARGINE (*BKC) 100 UNITS/ML 35 UNITS SUB-Q (20:12)
[2021-02-03] MEDS: FAMOTIDINE 20 MG TABLET 40 MG PO (20:13)
[2021-02-03] MEDS: ATORVASTATIN 40 MG TABLET 80 MG PO (20:13)
[2021-02-03 20:55] LABS: Glucose Point of Care > 500 mg/dl (65-105)
[2021-02-04] VITALS (9 sets, daily range): BP systolic 127–177; BP diastolic 52–84; PULSE 70–90; RESP 16; TEMP 36.4–36.7; O2SAT 94–100
[2021-02-04] MEDS: hydrALAZINE HCL 50 MG TABLET 100 MG PO ×3 (05:51→20:45)
[2021-02-04] MEDS: DOXYCYCLINE HYCLATE 50 MG CAPSULE PO ×2 (05:51→20:45)
[2021-02-04 05:56] LABS: Albumin Level 3.3 g/dL (3.5-5.1); Anion Gap 11 mmol/L (8-16); Blood Urea Nitrogen 66 mg/dL (9-20); Calcium 8.8 mg/dL (8.4-10.2); Carbon Dioxide 27 mmol/L (22-30); Chloride 95 mmol/L (98-107); Estimated CRCL calculation 18 ml/min; Estimated Glomerular Filt Rate 10; Phosphorus 4.7 mg/dL (2.5-4.5); Potassium 3.9 mmol/L (3.4-5.0); Sodium 133 mmol/L (137-145)
[2021-02-04 06:00] LABS: Glucose 645 mg/dL (75-110)
[2021-02-04] MEDS: INSULIN ASPART (*BKC) 100 UNITS/ML 20 UNITS SUB-Q (06:10)
--- NOTE | 2021-02-04 08:22 | PM.PNNEP ---
Progress Note: A&P Assessment and Plan (1) ESRD (end stage renal disease) on dialysis: Code(s): N18.6 - End stage renal disease; Z99.2 - Dependence on renal dialysis Status: Acute Assessment and Plan: Tiffanie has end-stage renal disease. He is on peritoneal dialysis. Still volume overloaded. Will increase Lasix. Electrolytes okay. (2) Fluid overload: Code(s): E87.70 - Fluid overload, unspecified Status: Acute Assessment and Plan: The patient has volume overload. On Bumex 2 mg b.i.d. he had 2800cc in. It is virtually impossible for PD to keep up with this. Will fluid restrict. (3) DKA (diabetic ketoacidoses): Qualifiers: Diabetes mellitus complication detail: without coma Diabetes mellitus type: type 2 Qualified Code(s): E11.10 - Type 2 diabetes mellitus with ketoacidosis without coma Code(s): E11.10 - Type 2 diabetes mellitus with ketoacidosis without coma Status: Acute Assessment and Plan: The patient has DKA. CO2 is normal (4) Obstructive sleep apnea: Code(s): G47.33 - Obstructive sleep apnea (adult) (pediatric) Status: Acute Assessment and Plan: He does not use a CPAP machine consistently. This is part of the problem with the fluid as well. (5) Anemia in chronic kidney disease: Code(s): N18.9 - Chronic kidney disease, unspecified; D63.1 - Anemia in chronic kidney disease Status: Acute Assessment and Plan: Hemoglobin is 9.1. On EPO. (6) Renal osteodystrophy: Code(s): N25.0 - Renal osteodystrophy Status: Acute Assessment and Plan: Phosphorus levels target Subjective Date/time seen: 02/04/21 08:22 Interval history: patient feels better today. Sugar still high. He made more urine. UF only about 1200cc. Still swollen. on PD and tolerating it well. He was seen at 8:10 a.m. Exam Narrative: Exam Narrative: WDWN in NAD skin no rash head ncat lungs clear cor reg no rub abd BS+ nontender and soft ext 1-2+ edema. Objective Data Vital Signs Vital Signs: Vital Signs - 24 hr 02/03/21 16:00 02/03/21 20:00 02/03/21 20:12 Temperature 36.7 C Pulse Rate 66 91 86 Respiratory Rate 12 16 Blood Pressure 166/63 H Pulse Oximetry 100 95 02/03/21 23:01 02/04/21 05:26 Temperature 36.7 C 36.7 C Pulse Rate 91 71 Respiratory Rate 16 16 Blood Pressure 161/76 H 177/58 H Pulse Oximetry 95 100 Intake/Output Intake/Output: Intake & Output 02/01/21 02/02/21 02/03/21 02/04/21 23:59 23:59 23:59 23:59 Intake Total 2410.7 2800 2000 Output Total 1650 3550 2950 Balance 760.7 -750 950 Meds/Results Medications: Active Medications Generic Name Dose Route Start Last Admin Trade Name Santa PRN Reason Stop Dose Admin Amlodipine Besylate 10 mg 02/02/21 09:00 02/03/21 08:22 Amlodipine Besylate 5 Mg Tablet PO 10 mg DAILY [facility] Administration Aspirin 81 mg 02/02/21 08:00 02/03/21 08:21 Aspirin 81 Mg Chewable Tablet PO 81 mg DAILY@0800 [facility] Administration Atorvastatin Calcium 80 mg 02/01/21 23:20 02/03/21 20:13 Atorvastatin 40 Mg Tablet PO 80 mg HS [facility] Administration Bumetanide 2 mg 02/03/21 17:00 02/03/21 16:47 Bumetanide Inj 2.5 Mg/10 Ml Vial IV PUSH 2 mg BID [facility] Administration Calcitriol 0.25 mcg 02/02/21 09:00 02/03/21 08:22 Calcitriol 0.25 Mcg Capsule PO 0.25 mcg QAM [facility] Administration Calcium Acetate 667 mg 02/02/21 08:00 02/03/21 20:13 Calcium Acetate 667 Mg Tablet PO 667 mg 0800,1200,1700,2100 [facility] Administration Clonidine HCl 0.2 mg 02/01/21 22:48 02/03/21 06:16 Clonidine Hcl 0.2 Mg Tablet PO 0.2 mg Q8HR PRN Administration Hypertension Clopidogrel Bisulfate 75 mg 02/02/21 09:00 02/03/21 08:21 Clopidogrel Bisulfate 75 Mg Tablet PO 75 mg DAILY [facility] Administration Colchicine 0.6 mg 02/03/21 09:00 02/03/21 08:21 Colchicine
[2021-02-04] MEDS: INSULIN ASPART (*BKC) 100 UNITS/ML SUB-Q ×3 (08:29→17:25)
[2021-02-04] MEDS: BUMETANIDE INJ 2.5 MG/10 ML VIAL 2 MG IV PUSH ×2 (08:33→17:27)
[2021-02-04] MEDS: amLODIPine BESYLATE 5 MG TABLET 10 MG PO (08:33)
[2021-02-04] MEDS: ASPIRIN 81 MG CHEWABLE TABLET PO (08:33)
[2021-02-04] MEDS: CALCIUM ACETATE 667 MG TABLET PO ×4 (08:33→20:45)
[2021-02-04] MEDS: CLOPIDOGREL BISULFATE 75 MG TABLET PO (08:34)
[2021-02-04] MEDS: HEPARIN SODIUM 5,000 UNITS/ML VIAL 5000 UNITS SUB-Q ×2 (08:34→20:46)
[2021-02-04] MEDS: calcitrioL 0.25 MCG CAPSULE PO (08:34)
[2021-02-04] MEDS: METOPROLOL TARTRATE 50 MG TAB 100 MG PO ×2 (08:35→20:45)
[2021-02-04] MEDS: ISOSORBIDE MONONITRATE 30 MG TAB.ER.24H PO (08:35)
[2021-02-04] MEDS: LORATADINE 10 MG TABLET PO (08:35)
[2021-02-04] MEDS: PANTOPRAZOLE 40 MG TABLET PO (08:35)
[2021-02-04] MEDS: valACYclovir HCL 500 MG TABLET PO ×3 (08:35→17:28)
[2021-02-04 08:42] LABS: Glucose Point of Care 399 mg/dl (65-105)
[2021-02-04 12:31] LABS: Glucose Point of Care 356 mg/dl (65-105)
--- NOTE | 2021-02-04 13:22 | PM.IMPN ---
Progress Note: A&P Assessment and Plan (1) Diabetes mellitus with hyperosmolarity without hyperglycemic hyperosmolar nonketotic coma: Code(s): E11.00 - Type 2 diabetes mellitus with hyperosmolarity without nonketotic hyperglycemic-hyperosmolar coma ([facility]) Status: Acute Assessment and Plan: on insulin sub Q now SUPPORTIVE CARE CONTINUE TO MONITOR (2) Fluid overload: Code(s): E87.70 - Fluid overload, unspecified Status: Acute Assessment and Plan: PATIENT STATES THAT HE HAS BEEN COMPLIANT WITH PERITONEAL DIALYSIS NIGHTLY WILL CONSULT NEPHROLOGY (3) ESRD (end stage renal disease) on dialysis: Code(s): N18.6 - End stage renal disease; Z99.2 - Dependence on renal dialysis Status: Acute Assessment and Plan: ON PERITONEAL DIALYSIS (4) Acute dyspnea: Code(s): R06.00 - Dyspnea, unspecified Status: Acute Assessment and Plan: LIKELY SECONDARY TO FLUID OVERLOAD SUPPORTIVE CARE (5) Obstructive sleep apnea: Code(s): G47.33 - Obstructive sleep apnea (adult) (pediatric) Status: Acute Assessment and Plan: CPAP AT NIGHTTIME (6) Essential hypertension: Code(s): I10 - Essential (primary) hypertension Status: Chronic Assessment and Plan: CONTINUE HOME MEDS CONTINUE TO MONITOR (7) Type 1 diabetes mellitus: Code(s): E10.9 - Type 1 diabetes mellitus without complications Status: Acute Assessment and Plan: WILL restart INSULIN ASPART Might benefit from diabetic teaching consult (8) Coronary artery disease: Qualifiers: Coronary Disease-Associated Artery/Lesion type: [place] artery [place] vs. transplanted heart: [place] heart Associated angina: without angina Qualified Code(s): I25.10 - Atherosclerotic heart disease of [place] coronary artery without angina pectoris Code(s): I25.10 - Atherosclerotic heart disease of [place] coronary artery without angina pectoris Status: Acute Assessment and Plan: Patient had left heart catheterization with stent placement at outside hospital Patient on dual anti-platelet therapy Resume home meds Continue to monitor (9) Anemia of chronic renal failure, stage 4 (severe): Code(s): N18.4 - Chronic kidney disease, stage 4 (severe); D63.1 - Anemia in chronic kidney disease Status: Acute Assessment and Plan: Procrit as per nephrology (10) Allergic reaction: Qualifiers: Encounter type: initial encounter Qualified Code(s): T78.40XA - Allergy, unspecified, initial encounter Code(s): T78.40XA - Allergy, unspecified, initial encounter Status: Acute Assessment and Plan: Resolving Subjective Date/time seen: 02/04/21 13:22 Interval history: 50-year-old male with past medical history significant for end-stage renal disease on peritoneal dialysis, type 1 diabetes mellitus insulin dependent patient uses insulin pump, obesity, Hypertension, dyslipidemia, coronary artery disease status post stent placement on dual anti-platelet therapy. Pt had some chest pain yesterday trop ordered, cardiology consult made. Pt looks very edematous and swollen, pt could not sleep much last night otherwise is improving slowly Review of Systems Review of Systems: All systems reviewed & are unremarkable except as noted in HPI and below Exam Const: General: cooperative Nutritional Appearance: overweight Orientation/consciousness: patient oriented x3 Other: edematous head to toe Eyes: Pupils: Equal, round and reactive pupils present Resp: Auscultation: crackles bilateral Cardio: Jugular venous distension: no JVD Rate: regular rate Rhythm: regular rhythm Heart sounds: S1 normal heart sound present and S2 normal heart sound present Skin: Rashes: other (Resolving rash mainly in the face and a scalp) Wounds: no wounds Neuro: General: patient oriented x3 and CN's II-XI intact bilaterally Cranial nerves: Yes CN's II-XII
[2021-02-04] MEDS: polyethylene glycoL 3350 17 GM POWD.PACK PO (14:23)
[2021-02-04] MEDS: EPOETIN ALFA-EPBX 10,000 UNITS/ML VIAL 10000 UNITS SUB-Q (17:29)
[2021-02-04 18:10] LABS: Glucose Point of Care 342 mg/dl (65-105)
[2021-02-04] MEDS: INSULIN ASPART (*BKC) 100 UNITS/ML 6 UNITS SUB-Q ×2 (20:43→23:14)
[2021-02-04] MEDS: INSULIN GLARGINE (*BKC) 100 UNITS/ML 35 UNITS SUB-Q (20:43)
[2021-02-04] MEDS: ACETAMINOPHEN 500 MG TABLET 1000 MG PO (20:44)
[2021-02-04] MEDS: FAMOTIDINE 20 MG TABLET 40 MG PO (20:45)
[2021-02-04] MEDS: ATORVASTATIN 40 MG TABLET 80 MG PO (20:45)
[2021-02-04 21:31] LABS: Glucose Point of Care 472 mg/dl (65-105)
[2021-02-04 23:03] LABS: Glucose Point of Care 491 mg/dl (65-105)
[2021-02-05] VITALS (8 sets, daily range): BP systolic 173–186; BP diastolic 40–71; PULSE 64–81; RESP 16–20; TEMP 36.4–36.8; O2SAT 92–99
[2021-02-05] MEDS: INSULIN ASPART (*BKC) 100 UNITS/ML 12 UNITS SUB-Q (02:15)
[2021-02-05 03:26] LABS: Glucose Point of Care 478 mg/dl (65-105)
[2021-02-05 05:18] LABS: Glucose Point of Care 298 mg/dl (65-105)
[2021-02-05 05:49] LABS: Hemoglobin 8.8 g/dL (14.0-18.0); Mean Corpuscular HGB Conc 33.8 g/dl (32-36); Mean Corpuscular Hemoglobin 32.5 pg (26-34); Mean Corpuscular Volume 95.9 fl (80-100); Mean Platelet Volume 9.9 fl (7.4-10.4); Platelet Count Result 211 k/mm3 (150-375); Red Blood Count 2.71 M/mm3 (4.6-6.20); Red Cell Distribution Width 12.8 % (11.5-14.5); White Blood Count 5.6 K/mm3 (4.5-10.0)
[2021-02-05 05:57] LABS: Albumin Level 3.5 g/dL (3.5-5.1); Anion Gap 8 mmol/L (8-16); Blood Urea Nitrogen 58 mg/dL (9-20); Calcium 9.4 mg/dL (8.4-10.2); Carbon Dioxide 32 mmol/L (22-30); Chloride 103 mmol/L (98-107); Estimated CRCL calculation 20 ml/min; Estimated Glomerular Filt Rate 11; Glucose 309 mg/dL (75-110); Phosphorus 4.5 mg/dL (2.5-4.5); Potassium 3.4 mmol/L (3.4-5.0); Sodium 143 mmol/L (137-145)
[2021-02-05] MEDS: hydrALAZINE HCL 50 MG TABLET 100 MG PO ×3 (06:24→21:30)
[2021-02-05] MEDS: DOXYCYCLINE HYCLATE 50 MG CAPSULE PO ×2 (06:24→17:45)
[2021-02-05 08:01] LABS: Glucose Point of Care 267 mg/dl (65-105)
[2021-02-05] MEDS: INSULIN ASPART (*BKC) 100 UNITS/ML SUB-Q ×3 (08:32→17:46)
[2021-02-05] MEDS: INSULIN GLARGINE (*BKC) 100 UNITS/ML 40 UNITS SUB-Q ×2 (08:32→17:46)
[2021-02-05] MEDS: calcitrioL 0.25 MCG CAPSULE PO (08:43)
[2021-02-05] MEDS: LORATADINE 10 MG TABLET PO (08:43)
[2021-02-05] MEDS: COLCHICINE 0.6 MG TABLET PO (08:43)
[2021-02-05] MEDS: PANTOPRAZOLE 40 MG TABLET PO (08:43)
[2021-02-05] MEDS: CLOPIDOGREL BISULFATE 75 MG TABLET PO (08:43)
[2021-02-05] MEDS: valACYclovir HCL 500 MG TABLET PO ×3 (08:43→17:45)
[2021-02-05] MEDS: amLODIPine BESYLATE 5 MG TABLET 10 MG PO (08:43)
[2021-02-05] MEDS: METOPROLOL TARTRATE 50 MG TAB 100 MG PO ×2 (08:43→20:40)
[2021-02-05] MEDS: CALCIUM ACETATE 667 MG TABLET PO ×4 (08:43→20:39)
[2021-02-05] MEDS: ASPIRIN 81 MG CHEWABLE TABLET PO (08:43)
[2021-02-05] MEDS: ISOSORBIDE MONONITRATE 30 MG TAB.ER.24H PO (08:43)
[2021-02-05] MEDS: HEPARIN SODIUM 5,000 UNITS/ML VIAL 5000 UNITS SUB-Q ×2 (08:44→20:40)
[2021-02-05] MEDS: BUMETANIDE INJ 2.5 MG/10 ML VIAL 2 MG IV PUSH ×2 (08:44→17:45)
--- NOTE | 2021-02-05 12:01 | PM.IMPN ---
Progress Note: A&P Assessment and Plan (1) Diabetes mellitus with hyperosmolarity without hyperglycemic hyperosmolar nonketotic coma: Code(s): E11.00 - Type 2 diabetes mellitus with hyperosmolarity without nonketotic hyperglycemic-hyperosmolar coma ([facility]) Status: Acute Assessment and Plan: on insulin sub Q now SUPPORTIVE CARE CONTINUE TO MONITOR (2) Fluid overload: Code(s): E87.70 - Fluid overload, unspecified Status: Acute Assessment and Plan: PATIENT STATES THAT HE HAS BEEN COMPLIANT WITH PERITONEAL DIALYSIS NIGHTLY WILL CONSULT NEPHROLOGY (3) ESRD (end stage renal disease) on dialysis: Code(s): N18.6 - End stage renal disease; Z99.2 - Dependence on renal dialysis Status: Acute Assessment and Plan: ON PERITONEAL DIALYSIS (4) Acute dyspnea: Code(s): R06.00 - Dyspnea, unspecified Status: Acute Assessment and Plan: LIKELY SECONDARY TO FLUID OVERLOAD SUPPORTIVE CARE (5) Obstructive sleep apnea: Code(s): G47.33 - Obstructive sleep apnea (adult) (pediatric) Status: Acute Assessment and Plan: CPAP AT NIGHTTIME (6) Essential hypertension: Code(s): I10 - Essential (primary) hypertension Status: Chronic Assessment and Plan: CONTINUE HOME MEDS CONTINUE TO MONITOR (7) Type 1 diabetes mellitus: Code(s): E10.9 - Type 1 diabetes mellitus without complications Status: Acute Assessment and Plan: WILL restart INSULIN ASPART Might benefit from diabetic teaching consult (8) Coronary artery disease: Qualifiers: Coronary Disease-Associated Artery/Lesion type: [place] artery [place] vs. transplanted heart: [place] heart Associated angina: without angina Qualified Code(s): I25.10 - Atherosclerotic heart disease of [place] coronary artery without angina pectoris Code(s): I25.10 - Atherosclerotic heart disease of [place] coronary artery without angina pectoris Status: Acute Assessment and Plan: Patient had left heart catheterization with stent placement at outside hospital Patient on dual anti-platelet therapy Resume home meds Continue to monitor (9) Anemia of chronic renal failure, stage 4 (severe): Code(s): N18.4 - Chronic kidney disease, stage 4 (severe); D63.1 - Anemia in chronic kidney disease Status: Acute Assessment and Plan: Procrit as per nephrology (10) Allergic reaction: Qualifiers: Encounter type: initial encounter Qualified Code(s): T78.40XA - Allergy, unspecified, initial encounter Code(s): T78.40XA - Allergy, unspecified, initial encounter Status: Acute Assessment and Plan: Resolving Subjective Date/time seen: 02/05/21 12:02 Interval history: 50-year-old male with past medical history significant for end-stage renal disease on peritoneal dialysis, type 1 diabetes mellitus insulin dependent patient uses insulin pump, obesity, Hypertension, dyslipidemia, coronary artery disease status post stent placement on dual anti-platelet therapy. Pt had some chest pain yesterday trop ordered, cardiology consult made. Pt looks very edematous and swollen, swelling is improving but patient looks depressed. Pt would like to talk to counsellor. Review of Systems Review of Systems: All systems reviewed & are unremarkable except as noted in HPI and below Exam Const: General: cooperative Nutritional Appearance: overweight Orientation/consciousness: patient oriented x3 Other: edematous up to calves Eyes: Pupils: Equal, round and reactive pupils present Resp: Auscultation: crackles bilateral Cardio: Jugular venous distension: no JVD Rate: regular rate Rhythm: regular rhythm Heart sounds: S1 normal heart sound present and S2 normal heart sound present Skin: Rashes: other (Resolving rash mainly in the face and a scalp) Wounds: no wounds Neuro: General: patient oriented x3 and CN's II-XI intact bilaterally Crania
[2021-02-05 12:10] LABS: Glucose Point of Care 322 mg/dl (65-105)
[2021-02-05] MEDS: MELOXICAM 7.5 MG TABLET PO ×2 (14:30→21:31)
--- NOTE | 2021-02-05 14:30 | PCCDE ---
diabetes education f/up: pt continues on 40 units Lantus and correction scale. His BG running 298-472mg/dl. Appt has improved and is eating 100% of meals. Would recommend to add prandial Novolog based on pump ICR of 6.5 which comes to 9 units at meals to cover the 60gm of carbs on consistent carb diet. Left message for hospitalist.
--- NOTE | 2021-02-05 15:41 | PM.PNNEP ---
Progress Note: A&P Assessment and Plan (1) ESRD (end stage renal disease) on dialysis: Code(s): N18.6 - End stage renal disease; Z99.2 - Dependence on renal dialysis Status: Acute Assessment and Plan: Tiffanie has end-stage renal disease. He is on peritoneal dialysis. His swelling seems a little bit better. After long deliberation about the fluid restriction. Will try 1500cc. (2) Fluid overload: Code(s): E87.70 - Fluid overload, unspecified Status: Acute Assessment and Plan: The patient has volume overload. On Bumex 2 mg b.i.d. The fluid restriction yesterday he had a total of 3160 in and only 2950 out (peritoneal dialysis). Today so far it is 440 in and 1500 out which is much better for his fluid status. (3) DKA (diabetic ketoacidoses): Qualifiers: Diabetes mellitus complication detail: without coma Diabetes mellitus type: type 2 Qualified Code(s): E11.10 - Type 2 diabetes mellitus with ketoacidosis without coma Code(s): E11.10 - Type 2 diabetes mellitus with ketoacidosis without coma Status: Acute Assessment and Plan: The patient had DKA CO2 is normal (4) Obstructive sleep apnea: Code(s): G47.33 - Obstructive sleep apnea (adult) (pediatric) Status: Acute Assessment and Plan: He does not use a CPAP machine consistently. This is part of the problem with the fluid as well. (5) Anemia in chronic kidney disease: Code(s): N18.9 - Chronic kidney disease, unspecified; D63.1 - Anemia in chronic kidney disease Status: Acute Assessment and Plan: Hemoglobin is 9.1. On EPO. (6) Renal osteodystrophy: Code(s): N25.0 - Renal osteodystrophy Status: Acute Assessment and Plan: Phosphorus levels target Subjective Date/time seen: 02/05/21 15:41 Interval history: patient feels better today. Sugar are better. He made more urine. He does not like the fluid restriction. We discussed at length the pros and cons of the fluid restriction. The main issue was that he cannot keep up with this much fluid intake by peritoneal dialysis alone. It would be nice not to be walking around with some much excess fluid. Exam Narrative: Exam Narrative: WDWN in NAD skin no rash or subcu nodules head ncat lungs clear cor reg no rub abd BS+ nontender and soft ext 1-2+ edema. Objective Data Vital Signs Vital Signs: Vital Signs - 24 hr 02/04/21 16:00 02/04/21 20:00 02/04/21 20:21 Temperature 36.6 C 36.4 C Pulse Rate 70 81 Respiratory Rate 16 16 Blood Pressure 158/52 H 176/62 H Pulse Oximetry 96 100 100 02/04/21 20:45 02/04/21 22:25 02/05/21 06:00 Temperature 36.4 C L Pulse Rate 80 64 Respiratory Rate 16 Blood Pressure 181/71 H Pulse Oximetry 95 99 02/05/21 08:00 02/05/21 08:30 02/05/21 08:32 Temperature 36.4 C Pulse Rate 67 Respiratory Rate 16 Blood Pressure 176/60 H Pulse Oximetry 99 93 92 02/05/21 08:43 Temperature Pulse Rate 70 Respiratory Rate Blood Pressure Pulse Oximetry Intake/Output Intake/Output: Intake & Output 02/02/21 02/03/21 02/04/21 02/05/21 23:59 23:59 23:59 23:59 Intake Total 2410.7 2800 3160 440 Output Total 1650 3550 2950 1500 Balance 760.7 -750 210 -1060 Meds/Results Medications: Active Medications Generic Name Dose Route Start Last Admin Trade Name Freq PRN Reason Stop Dose Admin Acetaminophen 1,000 mg 02/04/21 20:20 02/04/21 20:44 Acetaminophen 500 Mg Tablet PO 1,000 mg Q6H PRN Administration Mild Pain (1-3) or Fever Amlodipine Besylate 10 mg 02/02/21 09:00 02/05/21 08:43 Amlodipine Besylate 5 Mg Tablet PO 10 mg DAILY ASHLEY Administration Aspirin 81 mg 02/02/21 08:00 02/05/21 08:43 Aspirin 81 Mg Chewable Tablet PO 81 mg DAILY@0800 [facility] Administration Atorvastatin Calcium 80 mg 02/01/21 23:20 02/04/21 20:45 Atorvastatin 40 Mg Tablet PO 80 mg HS
[2021-02-05 17:26] LABS: Glucose Point of Care 291 mg/dl (65-105)
[2021-02-05] MEDS: INSULIN ASPART (*BKC) 100 UNITS/ML 9 UNITS SUB-Q (17:46)
[2021-02-05] MEDS: ATORVASTATIN 40 MG TABLET 80 MG PO (20:39)
[2021-02-05] MEDS: FAMOTIDINE 20 MG TABLET 40 MG PO (20:39)
--- NOTE | 2021-02-05 21:23 | PC.NURSE ---
spoke with Dialysis nurse and informed her that Dr. Rodriguez wants pt hooked up to 2 green bags and one red bag this evening, instead of the 3 bags he is currently hooked up to. She is coming in to change him over and I was told not to touch the machine to let it keep running at this time
[2021-02-05 22:40] LABS: Glucose Point of Care 279 mg/dl (65-105)
[2021-02-06] VITALS (7 sets, daily range): BP systolic 143–178; BP diastolic 46–67; PULSE 65–78; RESP 16–21; TEMP 36.4–36.8; O2SAT 96–100
[2021-02-06] MEDS: hydrALAZINE HCL 50 MG TABLET 100 MG PO ×3 (06:20→21:25)
[2021-02-06] MEDS: DOXYCYCLINE HYCLATE 50 MG CAPSULE PO ×2 (06:20→18:10)
[2021-02-06 08:39] LABS: Glucose Point of Care 186 mg/dl (65-105)
[2021-02-06] MEDS: ASPIRIN 81 MG CHEWABLE TABLET PO (08:51)
[2021-02-06] MEDS: CALCIUM ACETATE 667 MG TABLET PO ×4 (08:51→20:37)
[2021-02-06] MEDS: calcitrioL 0.25 MCG CAPSULE PO (08:52)
[2021-02-06] MEDS: amLODIPine BESYLATE 5 MG TABLET 10 MG PO (08:52)
[2021-02-06] MEDS: CLOPIDOGREL BISULFATE 75 MG TABLET PO (08:52)
[2021-02-06] MEDS: BUMETANIDE INJ 2.5 MG/10 ML VIAL 2 MG IV PUSH ×2 (08:52→18:10)
[2021-02-06] MEDS: HEPARIN SODIUM 5,000 UNITS/ML VIAL 5000 UNITS SUB-Q ×2 (08:52→20:37)
[2021-02-06] MEDS: LORATADINE 10 MG TABLET PO (08:53)
[2021-02-06] MEDS: ISOSORBIDE MONONITRATE 30 MG TAB.ER.24H PO (08:53)
[2021-02-06] MEDS: METOPROLOL TARTRATE 50 MG TAB 100 MG PO ×2 (08:53→20:38)
[2021-02-06] MEDS: valACYclovir HCL 500 MG TABLET PO ×3 (08:53→17:20)
[2021-02-06] MEDS: PANTOPRAZOLE 40 MG TABLET PO (08:53)
[2021-02-06 11:23] LABS: Glucose Point of Care 210 mg/dl (65-105)
--- NOTE | 2021-02-06 12:05 | PM.IMPN ---
Progress Note: A&P Assessment and Plan (1) Diabetes mellitus with hyperosmolarity without hyperglycemic hyperosmolar nonketotic coma: Code(s): E11.00 - Type 2 diabetes mellitus with hyperosmolarity without nonketotic hyperglycemic-hyperosmolar coma ([facility]) Status: Acute Assessment and Plan: on insulin sub Q now SUPPORTIVE CARE CONTINUE TO MONITOR (2) Fluid overload: Code(s): E87.70 - Fluid overload, unspecified Status: Acute Assessment and Plan: PATIENT STATES THAT HE HAS BEEN COMPLIANT WITH PERITONEAL DIALYSIS NIGHTLY WILL CONSULT NEPHROLOGY (3) ESRD (end stage renal disease) on dialysis: Code(s): N18.6 - End stage renal disease; Z99.2 - Dependence on renal dialysis Status: Acute Assessment and Plan: ON PERITONEAL DIALYSIS (4) Acute dyspnea: Code(s): R06.00 - Dyspnea, unspecified Status: Acute Assessment and Plan: LIKELY SECONDARY TO FLUID OVERLOAD SUPPORTIVE CARE (5) Obstructive sleep apnea: Code(s): G47.33 - Obstructive sleep apnea (adult) (pediatric) Status: Acute Assessment and Plan: CPAP AT NIGHTTIME (6) Essential hypertension: Code(s): I10 - Essential (primary) hypertension Status: Chronic Assessment and Plan: CONTINUE HOME MEDS CONTINUE TO MONITOR (7) Type 1 diabetes mellitus: Code(s): E10.9 - Type 1 diabetes mellitus without complications Status: Acute Assessment and Plan: WILL restart INSULIN ASPART Might benefit from diabetic teaching consult (8) Coronary artery disease: Qualifiers: Coronary Disease-Associated Artery/Lesion type: [place] artery [place] vs. transplanted heart: [place] heart Associated angina: without angina Qualified Code(s): I25.10 - Atherosclerotic heart disease of [place] coronary artery without angina pectoris Code(s): I25.10 - Atherosclerotic heart disease of [place] coronary artery without angina pectoris Status: Acute Assessment and Plan: Patient had left heart catheterization with stent placement at outside hospital Patient on dual anti-platelet therapy Resume home meds Continue to monitor (9) Anemia of chronic renal failure, stage 4 (severe): Code(s): N18.4 - Chronic kidney disease, stage 4 (severe); D63.1 - Anemia in chronic kidney disease Status: Acute Assessment and Plan: Procrit as per nephrology (10) Allergic reaction: Qualifiers: Encounter type: initial encounter Qualified Code(s): T78.40XA - Allergy, unspecified, initial encounter Code(s): T78.40XA - Allergy, unspecified, initial encounter Status: Acute Assessment and Plan: Resolving Subjective Date/time seen: 02/06/21 12:05 Interval history: 50-year-old male with past medical history significant for end-stage renal disease on peritoneal dialysis, type 1 diabetes mellitus insulin dependent patient uses insulin pump, obesity, Hypertension, dyslipidemia, coronary artery disease status post stent placement on dual anti-platelet therapy. Pt had some chest pain yesterday, cardiology consult made. Continue diuresis. Review of Systems Review of Systems: All systems reviewed & are unremarkable except as noted in HPI and below Exam Const: General: cooperative Nutritional Appearance: overweight Orientation/consciousness: patient oriented x3 Other: edematous up to calves, mild Eyes: Pupils: Equal, round and reactive pupils present Resp: Auscultation: crackles bilateral Cardio: Jugular venous distension: no JVD Rate: regular rate Rhythm: regular rhythm Heart sounds: S1 normal heart sound present and S2 normal heart sound present Skin: Rashes: other (Resolving rash mainly in the face and a scalp) Wounds: no wounds Neuro: General: patient oriented x3 and CN's II-XI intact bilaterally Cranial nerves: Yes CN's II-XII intact bilaterally and Yes Equal, round and reactive pupils present Cognition (Neuro):
--- NOTE | 2021-02-06 13:09 | PM.PNNEP ---
Progress Note: A&P Assessment and Plan (1) ESRD (end stage renal disease) on dialysis: Code(s): N18.6 - End stage renal disease; Z99.2 - Dependence on renal dialysis Status: Acute Assessment and Plan: Tiffanie has end-stage renal disease. He is on peritoneal dialysis. His swelling is improved. Doing better with the fluid restriction (2) Fluid overload: Code(s): E87.70 - Fluid overload, unspecified Status: Acute Assessment and Plan: The patient has volume overload. On Bumex 2 mg b.i.d. Improved (3) DKA (diabetic ketoacidoses): Qualifiers: Diabetes mellitus complication detail: without coma Diabetes mellitus type: type 2 Qualified Code(s): E11.10 - Type 2 diabetes mellitus with ketoacidosis without coma Code(s): E11.10 - Type 2 diabetes mellitus with ketoacidosis without coma Status: Acute Assessment and Plan: The patient had DKA CO2 is normal Sugars seem a little better (4) Obstructive sleep apnea: Code(s): G47.33 - Obstructive sleep apnea (adult) (pediatric) Status: Acute Assessment and Plan: He does not use a CPAP machine consistently. This is part of the problem with the fluid as well. (5) Anemia in chronic kidney disease: Code(s): N18.9 - Chronic kidney disease, unspecified; D63.1 - Anemia in chronic kidney disease Status: Acute Assessment and Plan: Hemoglobin is 8.8. On EPO. (6) Renal osteodystrophy: Code(s): N25.0 - Renal osteodystrophy Status: Acute Assessment and Plan: Phosphorus levels target Subjective Date/time seen: 02/06/21 13:09 Interval history: patient feels better today. Sugar are better. Doing better on the fluid restriction. Swelling is improved. Exam Narrative: Exam Narrative: WDWN in NAD skin no rash or subcu nodules head ncat lungs clear bilaterally cor reg no rub abd BS+ nontender and soft ext 1+ edema, mostly in the feet now. Objective Data Vital Signs Vital Signs: Vital Signs - 24 hr 02/05/21 16:00 02/05/21 20:29 02/05/21 20:40 Temperature 36.8 C 36.6 C Pulse Rate 75 81 81 Respiratory Rate 16 20 Blood Pressure 173/40 H 186/60 H Pulse Oximetry 94 99 06/19/21 00:00 02/06/21 04:33 02/06/21 08:00 Temperature 36.8 C 36.6 C 36.8 C Pulse Rate 72 65 74 Respiratory Rate 20 20 16 Blood Pressure 176/46 H 165/67 H 143/62 H Pulse Oximetry 96 96 99 02/06/21 08:53 Temperature Pulse Rate 74 Respiratory Rate Blood Pressure Pulse Oximetry Intake/Output Intake/Output: Intake & Output 02/03/21 02/04/21 02/05/21 02/06/21 23:59 23:59 23:59 23:59 Intake Total 2800 3160 1160 630 Output Total 3550 2950 3150 2303 Balance -750 186 -2917 -2586 Meds/Results Medications: Active Medications Generic Name Dose Route Start Last Admin Trade Name Freq PRN Reason Stop Dose Admin Acetaminophen 1,000 mg 02/04/21 20:20 02/04/21 20:44 Acetaminophen 500 Mg Tablet PO 1,000 mg Q6H PRN Administration Mild Pain (1-3) or Fever Amlodipine Besylate 10 mg 02/02/21 09:00 02/06/21 08:52 Amlodipine Besylate 5 Mg Tablet PO 10 mg DAILY ASHLEY Administration Aspirin 81 mg 02/02/21 08:00 02/06/21 08:51 Aspirin 81 Mg Chewable Tablet PO 81 mg DAILY@0800 [facility] Administration Atorvastatin Calcium 80 mg 02/01/21 23:20 02/05/21 20:39 Atorvastatin 40 Mg Tablet PO 80 mg HS ASHLEY Administration Bumetanide 2 mg 02/03/21 17:00 02/06/21 08:52 Bumetanide Inj 2.5 Mg/10 Ml Vial IV PUSH 2 mg BID A[facility] Administration Calcitriol 0.25 mcg 02/02/21 09:00 02/06/21 08:52 Calcitriol 0.25 Mcg Capsule PO 0.25 mcg QAM [facility] Administration Calcium Acetate 667 mg 02/02/21 08:00 02/06/21 08:51 Calcium Acetate 667 Mg Tablet PO 667 mg 0800,1200,1700,2100 [facility] Administration Clonidine HCl 0.2 mg 02/01/21 22:48 02/03/21 06:16 Clonidine Hcl 0.2 Mg Tablet PO 0.2 mg Q8
[2021-02-06] MEDS: EPOETIN ALFA-EPBX 10,000 UNITS/ML VIAL 10000 UNITS SUB-Q (17:47)
[2021-02-06 17:49] LABS: Glucose Point of Care 207 mg/dl (65-105)
[2021-02-06] MEDS: MELOXICAM 7.5 MG TABLET PO (17:52)
[2021-02-06] MEDS: FAMOTIDINE 20 MG TABLET 40 MG PO (20:37)
[2021-02-06] MEDS: ATORVASTATIN 40 MG TABLET 80 MG PO (20:37)
[2021-02-06 22:00] LABS: Glucose Point of Care 305 mg/dl (65-105)
[2021-02-07 05:46] LABS: Anion Gap 8 mmol/L (8-16); Blood Urea Nitrogen 44 mg/dL (9-20); Calcium 9.6 mg/dL (8.4-10.2); Carbon Dioxide 31 mmol/L (22-30); Chloride 103 mmol/L (98-107); Estimated CRCL calculation 23 ml/min; Estimated Glomerular Filt Rate 13; Glucose 235 mg/dL (75-110); Potassium 3.1 mmol/L (3.4-5.0); Sodium 142 mmol/L (137-145)
[2021-02-07 06:00] VITALS: BP 163/70; PULSE 67; RESP 21; TEMP 36.6; O2SAT 100
[2021-02-07] MEDS: DOXYCYCLINE HYCLATE 50 MG CAPSULE PO (06:06)
[2021-02-07] MEDS: hydrALAZINE HCL 50 MG TABLET 100 MG PO ×2 (06:06→13:53)
[2021-02-07 07:53] LABS: Glucose Point of Care 171 mg/dl (65-105)
--- NOTE | 2021-02-07 08:19 | PM.PNNEP ---
Progress Note: A&P Assessment and Plan (1) ESRD (end stage renal disease) on dialysis: Code(s): N18.6 - End stage renal disease; Z99.2 - Dependence on renal dialysis Status: Acute Assessment and Plan: Tiffanie has end-stage renal disease. He is on peritoneal dialysis. His swelling is improved. Doing better with the fluid restriction I suggested to him that he stay on a 1500cc fluid restriction at home. Will change to 2.5% [place] tonight. (2) Fluid overload: Code(s): E87.70 - Fluid overload, unspecified Status: Acute Assessment and Plan: The patient has volume overload. On Bumex 2 mg b.i.d. Improved Stay on fluid restriction (3) DKA (diabetic ketoacidoses): Qualifiers: Diabetes mellitus complication detail: without coma Diabetes mellitus type: type 2 Qualified Code(s): E11.10 - Type 2 diabetes mellitus with ketoacidosis without coma Code(s): E11.10 - Type 2 diabetes mellitus with ketoacidosis without coma Status: Acute Assessment and Plan: The patient had DKA CO2 is normal Sugars improved. (4) Obstructive sleep apnea: Code(s): G47.33 - Obstructive sleep apnea (adult) (pediatric) Status: Acute Assessment and Plan: He does not use a CPAP machine consistently. This is part of the problem with the fluid as well. (5) Anemia in chronic kidney disease: Code(s): N18.9 - Chronic kidney disease, unspecified; D63.1 - Anemia in chronic kidney disease Status: Acute Assessment and Plan: Hemoglobin is 8.8. On EPO. (6) Renal osteodystrophy: Code(s): N25.0 - Renal osteodystrophy Status: Acute Assessment and Plan: Phosphorus levels target Subjective Date/time seen: 02/07/21 08:19 Interval history: patient feels better today. Sugar are Up and down. Doing better on the fluid restriction. Swelling is improved. Exam Narrative: Exam Narrative: WDWN in NAD skin no rash or subcu nodules head ncat lungs clear to auscultation cor reg no rub or gallop abd BS+ nontender and soft ext trace to 1+ edema, mostly in the feet now. Objective Data Vital Signs Vital Signs: Vital Signs - 24 hr 02/06/21 08:53 02/06/21 16:00 02/06/21 20:38 Temperature 36.4 C Pulse Rate 74 78 78 Respiratory Rate 16 Blood Pressure 155/59 H Pulse Oximetry 100 02/06/21 22:00 02/07/21 06:00 Temperature 36.4 C L 36.6 C Pulse Rate 76 67 Respiratory Rate 21 H 21 H Blood Pressure 178/56 H 163/70 H Pulse Oximetry 100 100 Intake/Output Intake/Output: Intake & Output 02/04/21 02/05/21 02/06/21 02/07/21 23:59 23:59 23:59 23:59 Intake Total 3160 1160 1310 390 Output Total 2950 3150 2953 800 Balance 210 -1990 -1643 -410 Meds/Results Medications: Active Medications Generic Name Dose Route Start Last Admin Trade Name Freq PRN Reason Stop Dose Admin Acetaminophen 1,000 mg 02/04/21 20:20 02/04/21 20:44 Acetaminophen 500 Mg Tablet PO 1,000 mg Q6H PRN Administration Mild Pain (1-3) or Fever Amlodipine Besylate 10 mg 02/02/21 09:00 02/06/21 08:52 Amlodipine Besylate 5 Mg Tablet PO 10 mg DAILY ASHLEY Administration Aspirin 81 mg 02/02/21 08:00 02/06/21 08:51 Aspirin 81 Mg Chewable Tablet PO 81 mg DAILY@0800 [facility] Administration Atorvastatin Calcium 80 mg 02/01/21 23:20 02/06/21 20:37 Atorvastatin 40 Mg Tablet PO 80 mg HS ASHLEY Administration Bumetanide 2 mg 02/03/21 17:00 02/06/21 18:10 Bumetanide Inj 2.5 Mg/10 Ml Vial IV PUSH 2 mg BID A[facility]LEY Administration Calcitriol 0.25 mcg 02/02/21 09:00 02/06/21 08:52 Calcitriol 0.25 Mcg Capsule PO 0.25 mcg QAM A[facility]LEY Administration Calcium Acetate 667 mg 02/02/21 08:00 02/06/21 20:37 Calcium Acetate 667 Mg Tablet PO 667 mg 0800,1200,1700,2100 A[facility] Administration Clonidine HCl 0.2 mg 02/01/21 22:48 02/03/21 06:16 Clonidine Hcl 0.2 Mg Tablet PO
[2021-02-07] MEDS: ISOSORBIDE MONONITRATE 30 MG TAB.ER.24H PO (09:32)
[2021-02-07 09:33] VITALS: PULSE 79
[2021-02-07] MEDS: calcitrioL 0.25 MCG CAPSULE PO (09:33)
[2021-02-07] MEDS: ASPIRIN 81 MG CHEWABLE TABLET PO (09:33)
[2021-02-07] MEDS: amLODIPine BESYLATE 5 MG TABLET 10 MG PO (09:33)
[2021-02-07] MEDS: CLOPIDOGREL BISULFATE 75 MG TABLET PO (09:33)
[2021-02-07] MEDS: PANTOPRAZOLE 40 MG TABLET PO (09:33)
[2021-02-07] MEDS: METOPROLOL TARTRATE 50 MG TAB 100 MG PO (09:33)
[2021-02-07] MEDS: LORATADINE 10 MG TABLET PO (09:33)
[2021-02-07] MEDS: CALCIUM ACETATE 667 MG TABLET PO ×2 (09:33→12:32)
[2021-02-07] MEDS: valACYclovir HCL 500 MG TABLET PO ×2 (09:36→12:32)
--- NOTE | 2021-02-07 09:46 | PCOTNOTE ---
9:44 a.m.: attempted occupational therapy session; patient declined therapeutic attempts at this time and reported that he is planning to be discharged this date and reports feeling good regarding ability to complete transfer's/ADL's; nursing notified of patient declining therapy; follow up as appropriate
[2021-02-07] MEDS: BUMETANIDE INJ 2.5 MG/10 ML VIAL 2 MG IV PUSH (09:57)
[2021-02-07] MEDS: HEPARIN SODIUM 5,000 UNITS/ML VIAL 5000 UNITS SUB-Q (09:57)
[2021-02-07 11:59] LABS: Glucose Point of Care 154 mg/dl (65-105)
--- NOTE | 2021-02-07 13:46 | PM.DS ---
DS: Admitting Diagnosis Admitting Diagnosis Admitting Diagnosis: Shortness of breath DS: Discharge Diagnosis Discharge Diagnosis (1) Diabetes mellitus with hyperosmolarity without hyperglycemic hyperosmolar nonketotic coma: Code(s): E11.00 - Type 2 diabetes mellitus with hyperosmolarity without nonketotic hyperglycemic-hyperosmolar coma ([facility]) Status: Acute Assessment and Plan: On insulin sub Q now Sugars are stable now (2) Fluid overload: Code(s): E87.70 - Fluid overload, unspecified Status: Acute Assessment and Plan: PATIENT STATES THAT HE HAS BEEN COMPLIANT WITH PERITONEAL DIALYSIS NIGHTLY (3) ESRD (end stage renal disease) on dialysis: Code(s): N18.6 - End stage renal disease; Z99.2 - Dependence on renal dialysis Status: Acute Assessment and Plan: ON PERITONEAL DIALYSIS (4) Acute dyspnea: Code(s): R06.00 - Dyspnea, unspecified Status: Resolved (5) Obstructive sleep apnea: Code(s): G47.33 - Obstructive sleep apnea (adult) (pediatric) Status: Acute Assessment and Plan: CPAP AT NIGHTTIME (6) Essential hypertension: Code(s): I10 - Essential (primary) hypertension Status: Chronic Assessment and Plan: CONTINUE HOME MEDS (7) Type 1 diabetes mellitus: Code(s): E10.9 - Type 1 diabetes mellitus without complications Status: Acute Assessment and Plan: Continue management of DM with insulin pump Might benefit from diabetic teaching consult (8) Coronary artery disease: Qualifiers: Associated angina: without angina Coronary Disease-Associated Artery/Lesion type: [place] artery [place] vs. transplanted heart: [place] heart Qualified Code(s): I25.10 - Atherosclerotic heart disease of [place] coronary artery without angina pectoris Code(s): I25.10 - Atherosclerotic heart disease of [place] coronary artery without angina pectoris Status: Acute Assessment and Plan: Patient had left heart catheterization with stent placement at outside hospital Patient on dual anti-platelet therapy Resume home meds (9) Anemia of chronic renal failure, stage 4 (severe): Code(s): N18.4 - Chronic kidney disease, stage 4 (severe); D63.1 - Anemia in chronic kidney disease Status: Acute Assessment and Plan: Epogen as per nephrology (10) Allergic reaction: Qualifiers: Encounter type: initial encounter Qualified Code(s): T78.40XA - Allergy, unspecified, initial encounter Code(s): T78.40XA - Allergy, unspecified, initial encounter Status: Acute Assessment and Plan: Resolving after several days of IV diuresis Pt expresses some feeling of depression pt will follow with PCP or depression DS: Summary Hospital Course Hospital Course: 50-year-old male with past medical history significant for end-stage renal disease on peritoneal dialysis, type 1 diabetes mellitus insulin dependent patient uses insulin pump, obesity, Hypertension, dyslipidemia, coronary artery disease status post stent placement on dual anti-platelet therapy. Pt seen by cardiology and nephrology. Pt did well on IV diuresis transition to oral diuresis and discharge. Time Spent with Patient Time attestation: Total time spent providing and/or coordinating discharge services:40 minutes on day of discharge Exam Const: General: cooperative Nutritional Appearance: overweight Orientation/consciousness: patient oriented x3 Other: edematous up to calves, mild one plus Eyes: Pupils: Equal, round and reactive pupils present Resp: Auscultation: crackles bilateral Cardio: Jugular venous distension: no JVD Rate: regular rate Rhythm: regular rhythm Heart sounds: S1 normal heart sound present and S2 normal heart sound present Skin: Rashes: other (Resolving rash mainly in the face and a scalp) Wounds: no wounds Neuro: General: patient oriented x3 and CN's II-XI intact bilaterally
[2021-02-07 14:27] VITALS: BP 148/57; PULSE 69; RESP 14; TEMP 36.7; O2SAT 96
== END 2021-02-07 15:05 | disposition home or self-care (01) | DRG 638 ==
LOC: ANHED 20:26 → ANHICU 20:37 → ANH2MED 02-07 13:46 → ANHICU 02-09 13:43
PROVIDERS: Internal Medicine; Internal Medicine Nephrology; Admitting Provider Internal Medicine; Emergency Provider Emergency Medicine; PCP Family Medicine; Visit Provider Family Medicine
DX: E10.69 Type 1 diabetes mellitus with other specified complication (principal); I13.2 Hypertensive heart and chronic kidney disease with heart failure and with stage 5 chronic kidney disease, or end stage renal disease; N18.6 End stage renal disease; T50.8X5A Adverse effect of diagnostic agents, initial encounter; E10.22 Type 1 diabetes mellitus with diabetic chronic kidney disease; I50.9 Heart failure, unspecified; Z99.2 Dependence on renal dialysis; E78.5 Hyperlipidemia, unspecified; I25.119 Atherosclerotic heart disease of native coronary artery with unspecified angina pectoris; G47.33 Obstructive sleep apnea (adult) (pediatric); D63.1 Anemia in chronic kidney disease; E87.70 Fluid overload, unspecified
CPT/HCPCS: 36415; 71045; 80048; 80069; 81001; 82010; 82948; 83036; 83605; 84484; 85025; 85027; 85055; 85610; 85730; 87040; 93005; 93306; 96365; 96366; 96368; 96375; 97161; 97165; 99285; A9270; G0378; J1644; J1815; J1940; J2270; J3480; J7030; Q5106

== ENCOUNTER 2021-02-21 17:02 | Emergency (ER) | payer MEDICARE, MEDICAID, SELFPAY ==
--- NOTE | ~2021-02-21 | XR_ITS ---
EXAMINATION: XR chest 1V portable EXAM DATE: 02/21/2021 18:23 INDICATION: Syncope, dizziness, history of CHF hypertension coronary artery disease and chronic kidne y disease. TECHNIQUE: Portable AP frontal chest x-ray was obtained. Comparison is made to prior examination from 02/01/2021. FINDINGS: Near resolution of previously seen patchy bilateral airspace disease with minimal residual left basilar linear atelectasis. The lungs are otherwise clear. There are no pleural effusions. The cardiomediastinal silhouette is within normal limits. There is no pneumothorax suspected. The bone s and soft tissues are unremarkable. IMPRESSION: Left basilar linear atelectasis.. Reviewed, dictated and finalized at location G.
[2021-02-21 17:00] VITALS: BP 108/60; PULSE 68; RESP 12; TEMP 37.5; O2SAT 99
[2021-02-21 17:05] VITALS: PULSE 68
[2021-02-21 17:07] VITALS: BP 130/62; PULSE 67
[2021-02-21 17:08] VITALS: BP 117/60; PULSE 68
[2021-02-21 17:08] LABS: Glucose Point of Care 55 mg/dl (65-105)
[2021-02-21 17:09] VITALS: BP 102/62; PULSE 71
--- NOTE | 2021-02-21 17:52 | ECG_ITS ---
Measurements Intervals [place] Rate: 67 P: 8 GA: 218 QRS: -43 QRSD: 114 T: 81 QT: 434 QTc: 460 Interpretive Statements SINUS RHYTHM WITH FIRST DEGREE AV BLOCK LEFT AXIS DEVIATION VOLTAGE CRITERIA FOR LVH POOR R WAVE PROGRESSION, ANTERIOR LEADS ST-T WAVE ABNORMALITY IN HIGH LATERAL LEADS- CONSIDER ISCHEMIA BASELINE ARTIFACT- I, II, AVR, AVF ABNORMAL ECG Electronically Signed On 02-23-2021 17:02:55 CDT by Doc Dorantes D.O.
[2021-02-21 18:11] LABS: Glucose Point of Care 35 mg/dl (65-105)
[2021-02-21] MEDS: DEXTROSE 50% 25 GM/50 ML SYRINGE IV PUSH (18:15)
--- NOTE | 2021-02-21 18:19 | ED.GENADULT ---
HPI - General Adult General Chief complaint: Syncope Stated complaint: syncopal episode Time Seen by Provider: 02/21/21 18:10 Source: patient, EMS, RN notes reviewed and old records reviewed Mode of arrival: EMS Limitations: no limitations History of Present Illness HPI narrative: Patient is a 50-year-old male who presents to emergency department for evaluation of near syncope at home today patient was with his brother ellis had taken some insulin 5 units due to his sugar being 230 patient notes he had not eaten at that point stood up too quickly and had near syncope EMS was contacted brought the patient and found to have hypoglycemia on arrival patient on arrival notes he feels fine has no complaints notes that he has been compliant with his daily peritoneal dialysis. Patient is followed by Dr. Sargent. Patient notes that he had felt fine yesterday. Patient notes that he gets lightheaded and dizzy with standing intermittently at this is a chronic finding. Patient notes that he had felt fine yesterday took his long-acting insulin last night after dialysis. Patient notes he has not eaten today and believes this to be the etiology of his low blood sugar Related Data Home Medications Medication Instructions Recorded Confirmed aspirin 81 mg PO DAILY 06/04/19 02/01/21 calcitriol 0.25 mcg PO QAM 06/04/19 02/01/21 clopidogrel 75 mg PO DAILY 06/04/19 02/01/21 ergocalciferol (vitamin D2) 50,000 unit PO WEEKLY 06/04/19 02/01/21 [Vitamin D2] hydralazine 100 mg PO Q8H 06/04/19 02/01/21 nitroglycerin 0.4 mg SUBLINGUAL Q5-15M PRN 06/04/19 02/01/21 ezetimibe [Zetia] 10 mg PO DAILY 09/09/19 02/01/21 isosorbide mononitrate 30 mg PO DAILY 09/09/19 02/01/21 metoprolol tartrate 100 mg PO Q12H 09/09/19 02/01/21 ranolazine 500 mg tablet,extended 500 mg PO Q12H 09/24/19 02/04/21 release,12 hr cetirizine [All Day Allergy 10 mg PO DAILY 12/26/19 02/01/21 (cetirizine)] furosemide 80 mg PO BID 02/02/20 02/01/21 calcium acetate(phosphat bind) 667 mg PO QID 03/31/20 02/01/21 famotidine 40 mg PO HS 03/31/20 02/01/21 atorvastatin 80 mg PO HS 11/26/20 02/01/21 colchicine [Colcrys] 0.6 mg PO QMWF 11/26/20 02/01/21 doxycycline hyclate 50 mg PO BID 11/26/20 02/01/21 meloxicam 7.5 mg PO BID PRN 11/26/20 02/01/21 omeprazole 20 mg PO QAM 11/26/20 02/01/21 valacyclovir 500 mg PO TID 11/26/20 02/01/21 amlodipine 10 mg PO DAILY 01/11/21 02/01/21 clonidine HCl 0.2 mg PO Q8HR PRN 02/01/21 02/01/21 Allergies Allergy/AdvReac Type Severity Reaction Status Date / Time allopurinol Allergy Severe Other Verified 02/01/21 17:04 iohexol Allergy Severe Difficulty Verified 02/01/21 17:04 [From CONTRAST - CT, XRAY] Breathing ticagrelor Allergy Intermediate Rash Verified 02/01/21 17:04 Review of Systems Review of Systems: All systems reviewed & are unremarkable except as noted in HPI and below PMFSH Past Medical History Medical History Allergy to intravenous contrast Anemia in chronic kidney disease Anxiety Arthritis Bronchitis Congestive heart failure Echocardiogram May 2017 EF of 50% with hypokinetic apical, inferior and basal inferior lateral segment, mild enlargement of left atrium. Coronary artery disease With history of several stents. Followed by [facility]. Deep venous thrombosis Chronic right popliteal DVT. Diabetic peripheral neuropathy Diabetic retinopathy End-stage renal disease on peritoneal dialysis Essential hypertension Fracture left lower ext Gastroesophageal reflux disease Gout Hyperlipidemia Obstructive sleep apnea With inconsistent CPAP use. Paroxysmal atrial fibrillation The patient denies Renal osteodystrophy Secondary hyperparathyroidism of renal origin Seizure X1 with etiology unknown Type 1 diabetes mellitus Onset around age 13. Surgical History Surgical History History of anterior
[2021-02-21 18:25] LABS: Alveolar/Arterial O2 Gradient 32.6 mmHg; Base Excess ABG 0.1 mEq/l (+/-2.0); Carboxyhemoglobin 0.8 % THb (0-2.0); Device ROOM AIR; Fractional Inspired Oxygen 21 %; HCO3 ABG 23.9 mEq/l (22.0-26.0); Methemoglobin ABG 0.3 %THb (0-1.5); Modified Allen's Test Pass; Oxygen Content ABG 16.1 %vol (16.0-22.0); Oxygen Saturation ABG 95.6 % (95.0-100.0); PCO2 ABG 35.7 mmHg (35.0-45.0); PO2 ABG 74.4 mmHg (80.0-100.0); PO2 FiO2 Ratio Arterial Blood 3.54 %; Reduced Hemoglobin 5.9 %THb (0-5.0); Site Drawn LEFT RADIAL; Total Hemoglobin 12.3 g/dL (12.0-18.0); pH ABG 7.443 (7.350-7.450)
[2021-02-21 18:34] LABS: Basophils Percent Auto 0.5 % (0.2-1.2); Eosinophils Absolute Auto 0.2 K/mm3 (0-0.3); Eosinophils Percent Auto 3.1 % (0-4.4); Hematocrit 33.8 % (42.0-52.0); Hemoglobin 11.3 g/dL (14.0-18.0); Immature Granulocyte Absolute 0.03 K/mm3 (0.00-0.031); Immature Granulocyte Percent A 0.5 % (0-0.5); Lymphocytes Absolute Auto 2.05 K/mm3 (0.9-3.2); Mean Corpuscular HGB Conc 33.4 g/dl (32-36); Mean Corpuscular Hemoglobin 32.9 pg (26-34); Mean Corpuscular Volume 98.5 fl (80-100); Mean Platelet Volume 9.1 fl (7.4-10.4); Monocytes Absolute Auto 1.2 K/mm3 (0.1-0.6); Neutrophils Absolute Auto 2.9 K/mm3 (1.3-6.7); Neutrophils Percent Auto 45.9 % (45.5-73.1); Platelet Count Result 290 k/mm3 (150-375); Red Blood Count 3.43 M/mm3 (4.6-6.20); Red Cell Distribution Width 13.6 % (11.5-14.5); White Blood Count 6.4 K/mm3 (4.5-10.0)
[2021-02-21 18:44] LABS: Alanine Aminotransferase 34 U/L (4-50); Albumin Level 4.1 g/dL (3.5-5.1); Alkaline Phosphatase 91 U/L (38-126); Anion Gap 15 mmol/L (8-16); Aspartate Amino Transferase 43 U/L (17-59); Bilirubin,Total 0.6 mg/dL (0.2-1.3); Blood Urea Nitrogen 63 mg/dL (9-20); Calcium 9.4 mg/dL (8.4-10.2); Carbon Dioxide 28 mmol/L (22-30); Chloride 94 mmol/L (98-107); Estimated CRCL calculation 11 ml/min; Estimated Glomerular Filt Rate 6; Glucose 142 mg/dL (75-110); Magnesium 2.3 mg/dL (1.6-2.3); Phosphorus 5.9 mg/dL (2.5-4.5); Potassium 3.6 mmol/L (3.4-5.0); Sodium 137 mmol/L (137-145)
[2021-02-21 18:47] LABS: Beta-Hydroxybutyrate/Acetoacetate 0.05 mmol/L (0.02-0.27)
[2021-02-21 19:01] LABS: Add Urine Microscopic? YES; Appearance Urine Cloudy (Clear); Bacteria Urine Trace /hpf; Bilirubin Urine 1+ (Negative); Blood Urine Negative (Negative); Color Urine Amber (Yellow); Glucose Urine UA Negative (Negative); Hyaline Casts Urine 20-29 /lpf; Ketones Urine Negative (Negative); Leukocyte Esterase Ur Negative LEU/UL (Negative); Mucus Urine Rare /lpf; Nitrate Urine Negative (Negative); Protein Urine 2+ mg/dL (Negative); RBC Urine 0-2 /hpf (0-2); Squamous Epithelial Cell Urine Rare /hpf (Few); Urobilinogen Urine Negative mg/dL (<2.0)
[2021-02-21 19:29] LABS: Glucose Point of Care 104 mg/dl (65-105)
[2021-02-21 20:06] LABS: Glucose Point of Care 119 mg/dl (65-105)
[2021-02-21 20:54] LABS: Glucose Point of Care 119 mg/dl (65-105)
[2021-02-21 21:00] VITALS: BP 142/56; PULSE 64; RESP 16; O2SAT 100
== END 2021-02-21 21:00 | disposition home or self-care (01) ==
PROVIDERS: Emergency Medicine Emergency Medical Services; Emergency Provider Emergency Medicine; PCP Family Medicine
DX: E11.649 Type 2 diabetes mellitus with hypoglycemia without coma (principal); Z79.4 Long term (current) use of insulin; F41.9 Anxiety disorder, unspecified; M19.90 Unspecified osteoarthritis, unspecified site; I50.9 Heart failure, unspecified; I25.10 Atherosclerotic heart disease of native coronary artery without angina pectoris; I13.2 Hypertensive heart and chronic kidney disease with heart failure and with stage 5 chronic kidney disease, or end stage renal disease; E11.22 Type 2 diabetes mellitus with diabetic chronic kidney disease; N18.6 End stage renal disease; Z99.2 Dependence on renal dialysis
CPT/HCPCS: 36415; 36600; 71045; 80053; 81001; 82010; 82375; 82805; 82948; 83050; 83735; 84100; 85025; 93005; 96374; 99284

== ENCOUNTER 2021-05-15 08:40 | Inpatient (IN) | payer MEDICARE, MEDICAID, SELFPAY ==
[2021-05-15] VITALS (10 sets, daily range): BP systolic 125–177; BP diastolic 48–73; PULSE 59–86; RESP 16–21; TEMP 36.7–37.1; O2SAT 93–98; BMI 43.9
--- NOTE | ~2021-05-15 | XR_ITS ---
EXAMINATION: XR chest 2V EXAM DATE: 05/15/2021 09:05 INDICATION: CHF, coronary artery disease, hypertension, reflux, diabetes, anxiety. TECHNIQUE: Frontal and lateral projections of the chest obtained and reviewed. Comparison is made to prior examination from 02/21/2021. FINDINGS: Linear left basilar atelectasis unchanged. No confluent consolidation, pneumothorax or ple ural effusion suspected. There are no osseous abnormalities identified. IMPRESSION: Linear left basilar atelectasis. Reviewed, dictated and finalized at location A.
--- NOTE | 2021-05-15 08:47 | ECG_ITS ---
Measurements Intervals [place] Rate: 77 P: 61 MO: 240 QRS: -54 QRSD: 134 T: 83 QT: 449 QTc: 509 Interpretive Statements SINUS RHYTHM WITH FIRST DEGREE AV BLOCK LEFT AXIS DEVIATION INTRAVENTRICULAR CONDUCTION DELAY POOR R WAVE PROGRESSION, CONSIDER ANTERIOR INFARCT BORDERLINE ST-T WAVE ABNORMALITY- HIGH LATERAL LEADS BASELINE ARTIFACT- AVR, AVL, AVF, V4 ABNORMAL ECG Electronically Signed On 05-15-2021 14:16:43 CDT by Doc Dorantes D.O.
[2021-05-15 08:55] LABS: Glucose Point of Care > 500 mg/dl (65-105)
[2021-05-15 09:08] LABS: Basophils Percent Auto 0.5 % (0.2-1.2); Eosinophils Percent Auto 0.1 % (0-4.4); Hematocrit 39.9 % (42.0-52.0); Immature Granulocyte Absolute 0.05 K/mm3 (0.00-0.031); Immature Granulocyte Percent A 0.6 % (0-0.5); Lymphocytes Absolute Auto 0.85 K/mm3 (0.9-3.2); Lymphocytes Percent Auto 9.8 % (18.3-44.2); Mean Corpuscular HGB Conc 30.1 g/dl (32-36); Mean Corpuscular Hemoglobin 33.1 pg (26-34); Mean Corpuscular Volume 110.2 fl (80-100); Mean Platelet Volume 10.3 fl (7.4-10.4); Monocytes Absolute Auto 0.5 K/mm3 (0.1-0.6); Monocytes Percent Auto 5.9 % (2.6-8.5); Neutrophils Absolute Auto 7.2 K/mm3 (1.3-6.7); Neutrophils Percent Auto 83.1 % (45.5-73.1); Platelet Count Result 237 k/mm3 (150-375); Red Blood Count 3.62 M/mm3 (4.6-6.20); Red Cell Distribution Width 12.9 % (11.5-14.5); White Blood Count 8.7 K/mm3 (4.5-10.0)
[2021-05-15 09:14] LABS: Alveolar/Arterial O2 Gradient 62.3 mmHg; Base Excess ABG -14.8 mEq/l (+/-2.0); Fractional Inspired Oxygen 21 %; HCO3 ABG 11.2 mEq/l (22.0-26.0); Oxygen Content ABG 14.4 %vol (16.0-22.0); Oxyhemoglobin 82.7 % THb (90.0-100.0); PCO2 ABG 27.5 mmHg (35.0-45.0); PO2 ABG 54.5 mmHg (80.0-100.0); Total Hemoglobin 12.4 g/dL (12.0-18.0)
[2021-05-15] MEDS: SODIUM CHLORIDE 0.9% IV 1,000 ML 999 ML IV CONT ×3 (09:17→11:09)
[2021-05-15 09:18] LABS: Modified Allen's Test Pass; Oxygen Saturation ABG 83.1 % (95.0-100.0); Site Drawn LEFT RADIAL; pH ABG 7.229 (7.350-7.450)
[2021-05-15 09:19] LABS: Device ROOM AIR
[2021-05-15 09:21] LABS: Prothrombin Time 12.7 Seconds (11.1-14.7)
[2021-05-15 09:22] LABS: Partial Thromboplastin Time 25.8 SECONDS (22.3-36.8)
[2021-05-15 09:32] LABS: Troponin I 0.025 ng/mL (0.000-0.034)
[2021-05-15 09:40] LABS: Add Urine Microscopic? YES; Appearance Urine Clear (Clear); Bilirubin Urine Negative (Negative); Blood Urine Negative (Negative); Color Urine Straw (Yellow); Glucose Urine UA 3+ mg/dL (Negative); Ketones Urine Negative (Negative); Leukocyte Esterase Ur Negative LEU/UL (Negative); Nitrate Urine Negative (Negative); Protein Urine Negative (Negative); RBC Urine 0-2 /hpf (0-2); Specific Grav Ur 1.021 (1.001-1.035); Urobilinogen Urine Negative mg/dL (<2.0); WBC Urine 0-3 /hpf
[2021-05-15 09:41] LABS: Blood Urea Nitrogen 65 mg/dL (9-20); Calcium 8.6 mg/dL (8.4-10.2); Carbon Dioxide 11 mmol/L (22-30); Chloride 79 mmol/L (98-107); Estimated CRCL calculation 19 ml/min; Estimated Glomerular Filt Rate 11; Potassium 5.8 mmol/L (3.4-5.0)
[2021-05-15 09:43] LABS: Anion Gap 28 mmol/L (8-16); Glucose 1488 mg/dL (65-110); Sodium 118 mmol/L (137-145)
--- NOTE | 2021-05-15 09:51 | ED.RECABL ---
HPI - Recheck/Abnormal Lab/Rx General Chief Complaint: Recheck/Abnormal Lab/Rx Stated Complaint: nausea/shaking Time Seen by Provider: 05/15/21 09:04 History of Present Illness HPI narrative: Patient presents for a check of his blood sugar. Patient reports he thinks maybe last night he disconnected his insulin pump woke up this morning was feeling tired was having some chest pain checked his blood sugar and his glucometer read greater than 500 so he came to the ER for evaluation. Reports he is usually pretty good about his insulin. Reports his blood sugars are running in the low 200s yesterday and he was feeling well. His chest pain started this morning is achy, constant, no clear aggravating or alleviating factors. He does report some nausea but denies any shortness of breath abdominal pain vomiting or diarrhea. Does report increase in urinary frequency Related Data Home Medications Medication Instructions Recorded Confirmed aspirin 81 mg PO DAILY 06/04/19 05/15/21 calcitriol 0.25 mcg PO QAM 06/04/19 05/15/21 clopidogrel 75 mg PO DAILY 06/04/19 05/15/21 ergocalciferol (vitamin D2) 50,000 unit PO WEEKLY 06/04/19 05/15/21 [Vitamin D2] hydralazine 100 mg PO Q8H 06/04/19 05/15/21 nitroglycerin 0.4 mg SUBLINGUAL Q5-15M PRN 06/04/19 05/15/21 ezetimibe [Zetia] 10 mg PO DAILY 09/09/19 05/15/21 isosorbide mononitrate 30 mg PO DAILY 09/09/19 05/15/21 metoprolol tartrate 100 mg PO Q12H 09/09/19 05/15/21 ranolazine 500 mg tablet,extended 500 mg PO Q12H 09/24/19 05/15/21 release,12 hr cetirizine [All Day Allergy 10 mg PO DAILY 12/26/19 05/15/21 (cetirizine)] furosemide 80 mg PO BID 02/02/20 05/15/21 calcium acetate(phosphat bind) 667 mg PO QID 03/31/20 05/15/21 famotidine 40 mg PO HS 03/31/20 05/15/21 atorvastatin 80 mg PO HS 11/26/20 05/15/21 colchicine [Colcrys] 0.6 mg PO QMWF 11/26/20 05/15/21 meloxicam 7.5 mg PO DAILY PRN 11/26/20 05/15/21 omeprazole 20 mg PO QAM 11/26/20 05/15/21 valacyclovir 500 mg PO TID 11/26/20 05/15/21 amlodipine 10 mg PO DAILY 01/11/21 05/15/21 clonidine HCl 0.2 mg PO Q8HR 02/01/21 05/15/21 gemfibrozil 600 mg PO BID 05/15/21 05/15/21 Allergies Allergy/AdvReac Type Severity Reaction Status Date / Time allopurinol Allergy Severe Other Verified 02/01/21 17:04 iohexol Allergy Severe Difficulty Verified 02/01/21 17:04 [From CONTRAST - CT, XRAY] Breathing ticagrelor Allergy Intermediate Rash Verified 02/01/21 17:04 Review of Systems Review of Systems: CONSTITUTIONAL: Denies fever, chills, or sweats. EYES: Denies visual changes, redness, or discharge. ENT: Denies rhinorrhea, congestion, sore throat, or otalgia. CARDIOVASCULAR: Denies palpitations, or edema. RESPIRATORY: Denies cough or dyspnea. GASTROINTESTINAL: Denies abdominal pain, nausea, vomiting, or diarrhea. GENITOURINARY: Denies dysuria or hematuria. SKIN: Denies rash or itching. MUSCULOSKELETAL: Denies back pain, joint pain, or myalgia. NEUROLOGIC: Denies headache, numbness, dizziness, or weakness. PSYCHIATRIC: Denies anxiety or depression. All systems reviewed & are unremarkable except as noted in HPI and below PMFSH Past Medical History Medical History (Updated 05/15/21 @ 13:56 by Clarice Christian NP) Allergy to intravenous contrast Anemia in chronic kidney disease Anxiety Arthritis Bronchitis Congestive heart failure Echocardiogram May 2017 EF of 50% with hypokinetic apical, inferior and basal inferior lateral segment, mild enlargement of left atrium. Coronary artery disease With history of several stents. Followed by [facility]. Deep venous thrombosis Chronic right popliteal DVT. Diabetic peripheral neuropathy Diabetic retinopathy End-stage renal disease on peritoneal dialysis Essential hypertension Fracture left lower ext Gastroesophageal reflux disease Gout Hyperlipidemia Obstructive sleep apnea With inconsistent CPAP use. Paroxysmal atrial fibrillation The patient denies Renal osteodystrophy Sec
[2021-05-15] MEDS: INSULIN HUMAN REGULAR (*BKC) 100 UNITS/ML 13 UNITS IV PUSH (09:53)
[2021-05-15 10:12] LABS: Hemoglobin A1C 8.1 % (<5.7)
[2021-05-15 10:13] LABS: Beta-Hydroxybutyrate/Acetoacetate 5.42 mmol/L (0.02-0.27)
[2021-05-15] MEDS: INSULIN HUMAN REGULAR (*BKC) 100 UNITS in SODIUM CHLORIDE 0.9% IV 99 ML 28.6 UNITS IV CONT (10:30)
[2021-05-15 11:24] LABS: Glucose Point of Care > 500 mg/dl (65-105)
--- NOTE | 2021-05-15 11:53 | WPDCNINT ---
Assessment and Plan Assessment and plan (1) DKA (diabetic ketoacidoses): Qualifiers: Diabetes mellitus complication detail: without coma Diabetes mellitus type: type 2 Qualified Code(s): E11.10 - Type 2 diabetes mellitus with ketoacidosis without coma Code(s): E11.10 - Type 2 diabetes mellitus with ketoacidosis without coma Status: Acute Assessment and Plan: Secondary to noncompliance IV fluid bolus and insulin bolus given in ER Start IV insulin drip Serial BMPs Patient has received 3 L of bolus an additional IV fluids infusion. Will hold further IV fluids as patient has end-stage renal disease (2) ESRD (end stage renal disease) on dialysis: Code(s): N18.6 - End stage renal disease; Z99.2 - Dependence on renal dialysis Status: Acute Assessment and Plan: Consult nephrology for PD tonight (3) Chest pain: Qualifiers: Chest pain type: chest pain due to myocardial ischemia Ischemic chest pain type: stable angina pectoris Qualified Code(s): I20.8 - Other forms of angina pectoris Code(s): R07.9 - Chest pain, unspecified Status: Acute Assessment and Plan: Patient has history of chronically elevated troponins History of stents, recent catheterization 01/21/2021 showed mild progression patient was seen by Cardiology recently here and they recommended follow up with patient's own professional athletes coach as an outpatient. Recent echo reviewed EKG reviewed and does not show any ST elevation Troponin x2 is negative and serial troponins ordered continue medical therapy aspirin, atorvastatin, clopidogrel, isosorbide, ranolazine etc.. (4) Coronary artery disease: Code(s): I25.10 - Atherosclerotic heart disease of [place] coronary artery without angina pectoris Status: Acute Assessment and Plan: See above (5) Obstructive sleep apnea: Code(s): G47.33 - Obstructive sleep apnea (adult) (pediatric) Status: Acute Assessment and Plan: CPAP at night (6) Hyperkalemia: Code(s): E87.5 - Hyperkalemia Status: Acute Assessment and Plan: Likely secondary to DKA Patient received IV fluid and insulin bolus Will recheck (7) Essential hypertension: Code(s): I10 - Essential (primary) hypertension Status: Chronic Assessment and Plan: Continue home meds at this time and adjust accordingly Additional Plan DVT prophylaxis -Lovenox Stress ulcer prophylaxis -patient is on PPI at home Nutrition -currently asymptomatic, will advance diet as tolerated Code Status - Full Code Public Safety Teacher Consult Note Consult date: 05/15/21 Time Seen: 12:00 HPI: Juvenal Daigle Jr. is a 50 year old male with past medical history of diabetes, CAD, end-stage renal disease and multiple admissions secondary to DKA presented to ER with chief complaint of elevated blood sugars. Patient states that he thinks he may have last dislodged his insulin pump last night woke up this morning was feeling tired and having symptoms of 'high blood sugar'. He states he felt weak and tired and unable to sleep. He was nauseous and had 1 episode of vomiting and throughout his water that he was trying to drink. No blood in the vomitus. No abdominal pain or diarrhea. No fever. He was at his baseline when he went to bed last night. Before EMS could arrived he had episode of chest pain shows all around his chest, 6/10 severe, sharp, no radiation, no aggravating or relieving factors. He currently denies having any chest pain at this time and is unable to tell me when the chest pain resolved. He states that he has had these chest pains in the past. He has been admitted in the past multiple times with DKA. He states compliance with his CPAP at night and does PD every night. He also told me that he is vaccinated against COVID he was unable to give me any details about his vaccinations All other systems were reviewed and were negative except swelling in his legs, l
[2021-05-15 12:08] LABS: Troponin I 0.033 ng/mL (0.000-0.034)
[2021-05-15 12:43] LABS: Glucose 1297 mg/dL (65-110)
--- NOTE | 2021-05-15 13:05 | ADMGEN ---
This patient, Juvenal Daigle Jr., was admitted to Intensive Care Unit-1 at 1300. Patient/family oriented to hospital policies and general routines including ID bracelet, bed and alarms, visiting hours, pain management, procedures, bathroom and other care routines, personal items, smoking policy, room service/diet, and visiting hours. Information on how to activate the Rapid Response Team has been discussed. Patient/Family are encouraged to report perceived risks to care and to ask questions if they do not understand what they are told or what they should do.
[2021-05-15 13:32] LABS: Glucose Point of Care > 500 mg/dl (65-105)
--- NOTE | 2021-05-15 13:32 | PM.IMHP ---
H&P: HPI History of Present Illness Date/Time: 05/15/21 13:32 this is a 50 year old male diabetic patient that has a history of diabetes type 1 that was diagnosed at age of 13 the patient stated that he believes that his insulin pump failed him and that it was kinked today. The patient has had multiple episodes of DKA. The patient stated that he thinks that he might disconnected his insulin pump last night during sleep but he woke up this morning he was very tired he was having some chest pain. He went to check his blood sugar and it was greater than 500 so came to the emergency room for evaluation. The patient stated that his blood sugars were running in the 200s yesterday and he was feeling well. The patient has a history of having for cardiac stents in the past. His H&H is 12.0 in 39.9. ABGs pH 7.2-9 CO2 27.5 O2 was 83.1. The patient is lethargic but wakes up to answer questions. Patient's blood sugar was read just heard as 1297. His troponin nonreactive. His B hop is 5.42. Meter Maintenance Person was notified. He agreed to consultation on this patient. The patient was started on IV fluids and given IV insulin. He was started on it insulin drip and admitted to ICU inpatient status on the date of service of 05/15/2021 Chief Complaint: Chest pain and elevated blood sugar Review of Systems Review of Systems: All systems reviewed & are unremarkable except as noted in HPI and below Constitutional: Constitutional: Reports as per HPI and Reports no additional constitutional complaints Eyes: Eyes: Reports as per HPI and Reports no additional eye complaints ENT: Reports system reviewed and no additional complaints, except as documented and Reports Normal hearing present Cardiovascular: Cardiovascular: Reports no additional cardiovascular complaints Respiratory: Respiratory: Reports no additional respiratory complaints and Reports no additional respiratory complaints Gastrointestinal: Gastrointestinal: Reports as per HPI and Reports no additional gastrointestinal complaints Musculoskeletal: Musculoskeletal: Reports no additional musculoskeletal complaints Integumentary/Breasts: Skin/Breast: Reports system reviewed and no additional complaints, except as docu and Reports as per HPI Neurologic: Reports system reviewed and no additional complaints, except as documented, Reports as per HPI and Reports Normal hearing present Psychiatric: Psychiatric: Reports no additional psychiatric complaints and Reports as per HPI Endocrine: Endocrine: Reports no additional endocrine complaints Hematologic/Lymphatic: Hematologic/Lymphatic: Reports no additional hematologic/lymphatic complaints Allergic/Immunologic: Allergic/Immunologic: Reports no additional allergic/immunologic complaints [facility] Past Medical History Medical History (Updated 05/15/21 @ 13:56 by Clarice Christian NP) Allergy to intravenous contrast Anemia in chronic kidney disease Anxiety Arthritis Bronchitis Congestive heart failure Echocardiogram May 2017 EF of 50% with hypokinetic apical, inferior and basal inferior lateral segment, mild enlargement of left atrium. Coronary artery disease With history of several stents. Followed by [facility]. Deep venous thrombosis Chronic right popliteal DVT. Diabetic peripheral neuropathy Diabetic retinopathy End-stage renal disease on peritoneal dialysis Essential hypertension Fracture left lower ext Gastroesophageal reflux disease Gout Hyperlipidemia Obstructive sleep apnea With inconsistent CPAP use. Paroxysmal atrial fibrillation The patient denies Renal osteodystrophy Secondary hyperparathyroidism of renal origin Seizure X1 with etiology unknown Type 1 diabetes mellitus Onset around age 13. Surgical History Surgical History H/O hernia repair History of anterior cruciate ligament surgery (~2000) Left knee History of appendectomy (~2006) History of art
[2021-05-15 13:56] LABS: Anion Gap 27 mmol/L (8-16); Blood Urea Nitrogen 69 mg/dL (9-20); Calcium 8.1 mg/dL (8.4-10.2); Carbon Dioxide 8 mmol/L (22-30); Chloride 86 mmol/L (98-107); Estimated CRCL calculation 19 ml/min; Estimated Glomerular Filt Rate 10; Magnesium 2.6 mg/dL (1.6-2.3); Phosphorus 5.1 mg/dL (2.5-4.5); Potassium 4.3 mmol/L (3.4-5.0); Sodium 121 mmol/L (137-145)
[2021-05-15 14:01] LABS: Glucose 1066 mg/dL (65-110)
[2021-05-15] MEDS: PANTOPRAZOLE 40 MG TABLET PO (14:02)
[2021-05-15] MEDS: CLOPIDOGREL BISULFATE 75 MG TABLET PO (14:02)
[2021-05-15] MEDS: EZETIMIBE 10 MG TABLET PO (14:02)
[2021-05-15] MEDS: ISOSORBIDE MONONITRATE 30 MG TAB.ER.24H PO (14:03)
[2021-05-15] MEDS: amLODIPine BESYLATE 5 MG TABLET 10 MG PO (14:03)
[2021-05-15] MEDS: valACYclovir HCL 500 MG TABLET PO ×2 (14:03→16:59)
[2021-05-15] MEDS: ASPIRIN 81 MG ENTERIC TABLET PO (14:03)
[2021-05-15] MEDS: ATORVASTATIN 40 MG TABLET 80 MG PO (14:04)
[2021-05-15] MEDS: calcitrioL 0.25 MCG CAPSULE PO (14:04)
[2021-05-15] MEDS: INSULIN HUMAN REGULAR (*BKC) 100 UNITS in SODIUM CHLORIDE 0.9% IV 99 ML 30 UNITS IV CONT ×2 (14:04→16:59)
[2021-05-15] MEDS: hydrALAZINE HCL 50 MG TABLET 100 MG PO ×2 (14:05→20:28)
[2021-05-15 14:54] LABS: Glucose Point of Care > 500 mg/dl (65-105)
[2021-05-15 15:48] LABS: Troponin I 0.232 ng/mL (0.000-0.034)
[2021-05-15 16:05] LABS: Glucose Point of Care > 500 mg/dl (65-105)
[2021-05-15 16:59] LABS: Glucose Point of Care > 500 mg/dl (65-105)
[2021-05-15] MEDS: CALCIUM ACETATE 667 MG TABLET PO ×2 (16:59→20:28)
[2021-05-15] MEDS: FUROSEMIDE 80 MG TABLET PO (16:59)
[2021-05-15 17:46] LABS: Anion Gap 17 mmol/L (8-16); Blood Urea Nitrogen 72 mg/dL (9-20); Calcium 8.5 mg/dL (8.4-10.2); Carbon Dioxide 18 mmol/L (22-30); Chloride 89 mmol/L (98-107); Estimated CRCL calculation 19 ml/min; Estimated Glomerular Filt Rate 10; Glucose 617 mg/dL (65-110); Potassium 3.7 mmol/L (3.4-5.0); Sodium 124 mmol/L (137-145)
[2021-05-15 18:02] LABS: Glucose Point of Care 487 mg/dl (65-105)
[2021-05-15 18:57] LABS: Glucose Point of Care 437 mg/dl (65-105)
[2021-05-15] MEDS: INSULIN HUMAN REGULAR (*BKC) 100 UNITS in SODIUM CHLORIDE 0.9% IV 99 ML 23 UNITS IV CONT (20:27)
[2021-05-15] MEDS: RANOLAZINE 500 MG TAB.ER.12H PO (20:28)
[2021-05-15] MEDS: METOPROLOL TARTRATE 50 MG TAB 100 MG PO (20:28)
[2021-05-15 21:09] LABS: Glucose Point of Care 292 mg/dl (65-105)
[2021-05-15 21:32] LABS: Glucose Point of Care 195 mg/dl (65-105)
[2021-05-15 21:37] LABS: Anion Gap 14 mmol/L (8-16); Blood Urea Nitrogen 73 mg/dL (9-20); Calcium 8.8 mg/dL (8.4-10.2); Carbon Dioxide 22 mmol/L (22-30); Chloride 93 mmol/L (98-107); Estimated CRCL calculation 19 ml/min; Estimated Glomerular Filt Rate 10; Glucose 232 mg/dL (65-110); Potassium 3.1 mmol/L (3.4-5.0); Sodium 129 mmol/L (137-145)
[2021-05-15 22:26] LABS: Glucose Point of Care 142 mg/dl (65-105)
[2021-05-16] VITALS (17 sets, daily range): BP systolic 115–158; BP diastolic 44–73; PULSE 58–76; RESP 14–20; TEMP 35.6–36.9; O2SAT 91–97
[2021-05-16 00:06] LABS: Glucose Point of Care 118 mg/dl (65-105)
[2021-05-16 00:29] LABS: Glucose Point of Care 85 mg/dl (65-105)
[2021-05-16 01:26] LABS: Glucose Point of Care 122 mg/dl (65-105)
[2021-05-16 01:51] LABS: Anion Gap 11 mmol/L (8-16); Blood Urea Nitrogen 72 mg/dL (9-20); Carbon Dioxide 24 mmol/L (22-30); Chloride 94 mmol/L (98-107); Estimated CRCL calculation 18 ml/min; Estimated Glomerular Filt Rate 10; Glucose 129 mg/dL (65-110); Potassium 3.4 mmol/L (3.4-5.0); Sodium 129 mmol/L (137-145)
[2021-05-16 02:33] LABS: Glucose Point of Care 117 mg/dl (65-105)
[2021-05-16 03:46] LABS: Glucose Point of Care 82 mg/dl (65-105)
[2021-05-16 04:37] LABS: Glucose Point of Care 139 mg/dl (65-105)
[2021-05-16 05:47] LABS: Glucose Point of Care 137 mg/dl (65-105)
[2021-05-16 06:07] LABS: Hematocrit 30.2 % (42.0-52.0); Hemoglobin 11.3 g/dL (14.0-18.0); Mean Corpuscular HGB Conc 37.4 g/dl (32-36); Mean Corpuscular Hemoglobin 32.7 pg (26-34); Mean Corpuscular Volume 87.3 fl (80-100); Mean Platelet Volume 9.7 fl (7.4-10.4); Platelet Count Result 196 k/mm3 (150-375); Red Blood Count 3.46 M/mm3 (4.6-6.20); White Blood Count 9.1 K/mm3 (4.5-10.0)
[2021-05-16] MEDS: hydrALAZINE HCL 50 MG TABLET 100 MG PO ×3 (06:25→22:25)
[2021-05-16 06:31] LABS: Glucose Point of Care 123 mg/dl (65-105)
[2021-05-16 06:52] LABS: Alanine Aminotransferase 33 U/L (4-50); Albumin Level 3.6 g/dL (3.5-5.1); Alkaline Phosphatase 97 U/L (38-126); Anion Gap 14 mmol/L (8-16); Aspartate Amino Transferase 45 U/L (17-59); Bilirubin,Total 0.8 mg/dL (0.2-1.3); Blood Urea Nitrogen 70 mg/dL (9-20); Calcium 8.9 mg/dL (8.4-10.2); Carbon Dioxide 22 mmol/L (22-30); Chloride 95 mmol/L (98-107); Estimated CRCL calculation 18 ml/min; Estimated Glomerular Filt Rate 10; Glucose 133 mg/dL (65-110); Magnesium 2.3 mg/dL (1.6-2.3); Potassium 2.8 mmol/L (3.4-5.0); Sodium 131 mmol/L (137-145)
[2021-05-16 07:10] LABS: Glucose Point of Care 109 mg/dl (65-105)
[2021-05-16 07:57] LABS: Glucose Point of Care 93 mg/dl (65-105)
[2021-05-16] MEDS: calcitrioL 0.25 MCG CAPSULE PO (08:22)
[2021-05-16] MEDS: POTASSIUM CHLORIDE 20 MEQ TABLET 40 MEQ PO (08:22)
[2021-05-16] MEDS: ATORVASTATIN 40 MG TABLET 80 MG PO (08:22)
[2021-05-16] MEDS: CLOPIDOGREL BISULFATE 75 MG TABLET PO (08:23)
[2021-05-16] MEDS: amLODIPine BESYLATE 5 MG TABLET 10 MG PO (08:23)
[2021-05-16] MEDS: CALCIUM ACETATE 667 MG TABLET PO ×4 (08:23→20:39)
[2021-05-16] MEDS: ENOXAPARIN 30 MG/0.3 ML SYRINGE SUB-Q (08:23)
[2021-05-16] MEDS: RANOLAZINE 500 MG TAB.ER.12H PO ×2 (08:23→20:39)
[2021-05-16] MEDS: METOPROLOL TARTRATE 50 MG TAB 100 MG PO ×2 (08:23→20:39)
[2021-05-16] MEDS: FUROSEMIDE 80 MG TABLET PO ×2 (08:23→17:49)
[2021-05-16] MEDS: ASPIRIN 81 MG ENTERIC TABLET PO (08:23)
[2021-05-16] MEDS: PANTOPRAZOLE 40 MG TABLET PO (08:23)
[2021-05-16] MEDS: valACYclovir HCL 500 MG TABLET PO ×3 (08:24→17:49)
[2021-05-16] MEDS: EZETIMIBE 10 MG TABLET PO (08:24)
[2021-05-16] MEDS: ISOSORBIDE MONONITRATE 30 MG TAB.ER.24H PO (08:24)
[2021-05-16] MEDS: INSULIN GLARGINE (*BKC) 100 UNITS/ML 60 UNITS SUB-Q (08:24)
--- NOTE | 2021-05-16 08:39 | PM.IMPN ---
Progress Note: A&P Assessment and Plan (1) DKA, type 1: Qualifiers: Diabetes mellitus complication detail: without coma Qualified Code(s): E10.10 - Type 1 diabetes mellitus with ketoacidosis without coma Code(s): E10.10 - Type 1 diabetes mellitus with ketoacidosis without coma Status: Acute Assessment and Plan: DKA protocol ICU. [employer] has been consulted. Check A1c. At this point the patient is maxed out on insulin drip. His blood sugars will not even register on the Accu-Chek machine. 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 The patient feels that his insulin pump failed him. The patient has had multiple admissions for DKA. (2) ESRD (end stage renal disease) on dialysis: Code(s): N18.6 - End stage renal disease; Z99.2 - Dependence on renal dialysis Status: Acute Assessment and Plan: Nephrology has been consulted. Patient has peritoneal dialysis catheter (3) Obstructive sleep apnea: Code(s): G47.33 - Obstructive sleep apnea (adult) (pediatric) Status: Acute Assessment and Plan: Auto titrate to home setting (4) HTN (hypertension): Code(s): I10 - Essential (primary) hypertension Status: Acute Assessment and Plan: Continue with hydralazine, Lasix, isosorbide, metoprolol, (5) Anemia of chronic renal failure, stage 4 (severe): Code(s): N18.4 - Chronic kidney disease, stage 4 (severe); D63.1 - Anemia in chronic kidney disease Status: Acute Assessment and Plan: Chronic and stable. (6) Coronary artery disease: Code(s): I25.10 - Atherosclerotic heart disease of [place] coronary artery without angina pectoris Status: Acute Assessment and Plan: Patient has a history of 4 coronary stents. Continue with metoprolol, Plavix, simvastatin, and Zetia. Continue with Ranexa and aspirin. Additional Plan DVT prophylaxis -Lovenox Stress ulcer prophylaxis -patient is on PPI at home Nutrition -currently asymptomatic, will advance diet as tolerated Code Status - Full Code 05/16/2021 Short stay in ICU DKA has resolved and gap is closed patient is cleared for transfer to IMU Continue current care No source of infection identified, DKA suspected to be secondary to noncompliance alone PD per Nephrology Continue home med Transition to the subcutaneous insulin will need to restart insulin pump at discharge Patient will need close follow-up with Endocrinology Diabetic diet PT OT consult Time Spent With Patient Time with patient: 25 - 35 minutes Subjective Date/time seen: 05/16/21 08:39 Patient seen in ICU this morning doing very well use been cleared by patient support associate for transfer to IMU. I have discussed with patient importance of insulin compliance and he is considering discontinuing his insulin pump as he had better control in the past. Exam Narrative: General: Pt is alert awake and in NAD morbidly obese Lungs/Chest: Nontender to palpation no use of accessory muscles symmetric chest rise Circulation: Pedal pulses are intact and symmetrical. Abdomen: Morbidly obese. Soft. NT. ND. PD catheter in left lower quadrant Extremities: No clubbing, no cyanosis, bilateral 1+ pitting edema : Nguyen in place clear urine Neurologic: Other night x3 cranial nerves intact no focal neurological deficits appreciated Skin: No Rash Objective Data Vital Signs Vital Signs: Vital Signs - 24 hr 05/15/21 10:45 05/15/21 13:03 05/15/21 14:00 Temperature 98.4 F 98.8 F Pulse Rate 86 83 84 Respiratory Rate 17 18 20 Blood Pressure 177/73 H 139/54 L 141/52 H Pulse Oximetry 98 98 96 05/15/21 16:00 05/15/21 18:00 05/15/21 19:45 Temperature Pulse Rate 84 82 59 L Respiratory Rate 18 18 Blood Pressure 155/57 H 145/54 H Pulse Oximetry 97 96 94 05/15/21 20:00 05/15/21 20:28 05/15/21 22:00 Temperature 98.2 F Pulse Rate 82 80 64 Respiratory Rate 20 16 Blood Pressure 139/71 126/53 L Pulse Oximetry 93 94 05/16/21 00:00
--- NOTE | 2021-05-16 08:52 | WPDINTPN ---
Progress Note: A&P Assessment and Plan (1) DKA (diabetic ketoacidoses): Qualifiers: Diabetes mellitus complication detail: without coma Diabetes mellitus type: type 2 Qualified Code(s): E11.10 - Type 2 diabetes mellitus with ketoacidosis without coma Code(s): E11.10 - Type 2 diabetes mellitus with ketoacidosis without coma Status: Acute Assessment and Plan: IV fluid bolus and insulin bolus was given in ER and patient was started on IV insulin drip Serial BMPs were done and patient's anion gap has closed Patient had received 3 L of bolus an additional IV fluids infusion. further IV fluids were held on admission to ICU as patient has end-stage renal disease will administer Lantus, start sliding scale and advance diet DC IV insulin drip (2) ESRD (end stage renal disease) on dialysis: Code(s): N18.6 - End stage renal disease; Z99.2 - Dependence on renal dialysis Status: Acute Assessment and Plan: Consult nephrology for PD tonight (3) Chest pain: Qualifiers: Chest pain type: chest pain due to myocardial ischemia Ischemic chest pain type: stable angina pectoris Qualified Code(s): I20.8 - Other forms of angina pectoris Code(s): R07.9 - Chest pain, unspecified Status: Acute Assessment and Plan: Patient has history of chronically elevated troponins History of stents, recent catheterization 01/21/2021 showed mild progression patient was seen by Cardiology recently here and they recommended follow up with patient's own industrial eng as an outpatient. Recent echo reviewed EKG reviewed and does not show any ST elevation Troponin x2 is negative and 3rd troponin was minimally elevated. patient is chest pain-free and asymptomatic at this time continue medical therapy aspirin, atorvastatin, clopidogrel, isosorbide, ranolazine etc.. (4) Coronary artery disease: Code(s): I25.10 - Atherosclerotic heart disease of [place] coronary artery without angina pectoris Status: Acute Assessment and Plan: See above (5) Obstructive sleep apnea: Code(s): G47.33 - Obstructive sleep apnea (adult) (pediatric) Status: Acute Assessment and Plan: CPAP at night (6) Essential hypertension: Code(s): I10 - Essential (primary) hypertension Status: Chronic Assessment and Plan: Continue home meds at this time and adjust accordingly (7) Hypokalemia: Code(s): E87.6 - Hypokalemia Status: Acute Assessment and Plan: likely secondary to peritoneal dialysis hold insulin infusion at this time due to hyperkalemia will give p.o. and IV KCL replacement Additional Plan DVT prophylaxis -Lovenox Stress ulcer prophylaxis -patient is on PPI at home Nutrition -currently asymptomatic, will advance diet as tolerated Code Status - Full Code IS, up in chair transfer out of ICU today Subjective Date/time seen: 05/16/21 No major events overnight. patient continues to be an insulin infusion. He has no new complaints today and he slept well. He states that he would like to eat food this morning. He wore his CPAP at night. he had PD done last night Review of Systems Review of Systems: All systems reviewed & are unremarkable except as noted in HPI and below (HPI) Exam Narrative: General: Pt is alert awake and in NAD Lungs/Chest: Trachea central Clear BS B/L, No crackles or wheezing. Cardiac: RRR. Normal S1 S2. No murmurs Circulation: Pedal pulses are intact and symmetrical. Abdomen: Normal bowel sounds. Morbidly obese. Soft. NT. ND. PD catheter in left lower quadrant Extremities: No clubbing, cyanosis, 1+ pitting edema present bilaterally. Warm : Nguyen in place Neurologic: Follows commands. Moves all 4 extremities PERRL alert oriented x3 Skin: No Rash Objective Data Vital Signs Vital Signs: Vital Signs - 24 hr 05/15/21 10:45 05/15/21 13:03 05/15/21 14:00 Temperature 36.9 C 37.1 C Pulse Rate
[2021-05-16 09:03] LABS: Add Urine Microscopic? YES; Appearance Urine Clear (Clear); Bilirubin Urine Negative (Negative); Blood Urine Negative (Negative); Color Urine Yellow (Yellow); Glucose Urine UA 3+ mg/dL (Negative); Ketones Urine Negative (Negative); Leukocyte Esterase Ur Negative LEU/UL (NEGATIVE); Mucus Urine Rare /lpf; Nitrate Urine Negative (Negative); Protein Urine Negative (Negative); RBC Urine 0-2 /hpf (0-2); Specific Grav Ur 1.014 (1.001-1.035); Urobilinogen Urine Negative mg/dL (<2.0); WBC Urine 0-3 /hpf (0-3)
[2021-05-16 11:40] LABS: Glucose Point of Care 361 mg/dl (65-105)
[2021-05-16] MEDS: INSULIN ASPART (*BKC) 100 UNITS/ML SUB-Q ×2 (11:41→17:47)
--- NOTE | 2021-05-16 14:51 | PC.NURSE ---
Patient transferred to [facility], report given to Alyssa ROLAND. All belongings sent with patient
[2021-05-16 17:54] LABS: Glucose Point of Care 451 mg/dl (65-105)
[2021-05-16] MEDS: INSULIN ASPART (*BKC) 100 UNITS/ML 15 UNITS SUB-Q (21:06)
[2021-05-16 21:17] LABS: Glucose Point of Care 475 mg/dl (65-105)
[2021-05-17] VITALS (10 sets, daily range): BP systolic 134–167; BP diastolic 45–58; PULSE 63–69; RESP 16–20; TEMP 36.4–37.1; O2SAT 93–98
[2021-05-17 05:37] LABS: Hematocrit 29.8 % (42.0-52.0); Hemoglobin 10.7 g/dL (14.0-18.0); Mean Corpuscular HGB Conc 35.9 g/dl (32-36); Mean Corpuscular Hemoglobin 32.4 pg (26-34); Mean Corpuscular Volume 90.3 fl (80-100); Mean Platelet Volume 9.7 fl (7.4-10.4); Platelet Count Result 140 k/mm3 (150-375); White Blood Count 5.9 K/mm3 (4.5-10.0)
[2021-05-17 05:53] LABS: Alanine Aminotransferase 32 U/L (4-50); Albumin Level 3.4 g/dL (3.5-5.1); Alkaline Phosphatase 105 U/L (38-126); Anion Gap 11 mmol/L (8-16); Aspartate Amino Transferase 40 U/L (17-59); Bilirubin,Total 0.8 mg/dL (0.2-1.3); Blood Urea Nitrogen 70 mg/dL (9-20); Calcium 8.6 mg/dL (8.4-10.2); Carbon Dioxide 23 mmol/L (22-30); Chloride 94 mmol/L (98-107); Estimated CRCL calculation 18 ml/min; Estimated Glomerular Filt Rate 10; Glucose 399 mg/dL (65-110); Magnesium 2.1 mg/dL (1.6-2.3); Potassium 3.9 mmol/L (3.4-5.0); Sodium 128 mmol/L (137-145)
[2021-05-17] MEDS: ACETAMINOPHEN 325 MG TABLET 650 MG PO (06:02)
[2021-05-17] MEDS: hydrALAZINE HCL 50 MG TABLET 100 MG PO ×3 (06:04→20:51)
[2021-05-17 08:17] LABS: Glucose Point of Care 423 mg/dl (65-105)
[2021-05-17] MEDS: valACYclovir HCL 500 MG TABLET PO ×3 (08:24→16:39)
[2021-05-17] MEDS: RANOLAZINE 500 MG TAB.ER.12H PO ×2 (08:24→20:51)
[2021-05-17] MEDS: ENOXAPARIN 30 MG/0.3 ML SYRINGE SUB-Q (08:24)
[2021-05-17] MEDS: ISOSORBIDE MONONITRATE 30 MG TAB.ER.24H PO (08:24)
[2021-05-17] MEDS: PANTOPRAZOLE 40 MG TABLET PO (08:24)
[2021-05-17] MEDS: METOPROLOL TARTRATE 50 MG TAB 100 MG PO ×2 (08:24→20:51)
[2021-05-17] MEDS: FUROSEMIDE 80 MG TABLET PO ×2 (08:25→16:38)
[2021-05-17] MEDS: CALCIUM ACETATE 667 MG TABLET PO ×4 (08:25→20:51)
[2021-05-17] MEDS: ATORVASTATIN 40 MG TABLET 80 MG PO (08:25)
[2021-05-17] MEDS: CLOPIDOGREL BISULFATE 75 MG TABLET PO (08:25)
[2021-05-17] MEDS: calcitrioL 0.25 MCG CAPSULE PO (08:25)
[2021-05-17] MEDS: ASPIRIN 81 MG ENTERIC TABLET PO (08:25)
[2021-05-17] MEDS: EZETIMIBE 10 MG TABLET PO (08:25)
[2021-05-17] MEDS: amLODIPine BESYLATE 5 MG TABLET 10 MG PO (08:25)
[2021-05-17] MEDS: INSULIN GLARGINE (*BKC) 100 UNITS/ML 60 UNITS SUB-Q (08:28)
[2021-05-17] MEDS: INSULIN ASPART (*BKC) 100 UNITS/ML 10 UNITS SUB-Q (08:35)
[2021-05-17] MEDS: ONDANSETRON INJ 4 MG/2 ML VIAL IV PUSH (08:38)
[2021-05-17] MEDS: SODIUM CHLORIDE 0.9% IV 500 ML IV CONT (10:43)
--- NOTE | 2021-05-17 11:44 | PM.IMPN ---
Progress Note: A&P Assessment and Plan (1) DKA, type 1: Qualifiers: Diabetes mellitus complication detail: without coma Qualified Code(s): E10.10 - Type 1 diabetes mellitus with ketoacidosis without coma Code(s): E10.10 - Type 1 diabetes mellitus with ketoacidosis without coma Status: Acute Assessment and Plan: DKA protocol ICU. 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 The patient feels that his insulin pump failed him. The patient has had multiple admissions for DKA. Order UA to check or ketones, bolus as sugars are still high (2) ESRD (end stage renal disease) on dialysis: Code(s): N18.6 - End stage renal disease; Z99.2 - Dependence on renal dialysis Status: Acute Assessment and Plan: Nephrology has been consulted. Patient has peritoneal dialysis catheter (3) Obstructive sleep apnea: Code(s): G47.33 - Obstructive sleep apnea (adult) (pediatric) Status: Acute Assessment and Plan: Auto titrate to home setting (4) HTN (hypertension): Code(s): I10 - Essential (primary) hypertension Status: Acute Assessment and Plan: Continue with hydralazine, Lasix, isosorbide, metoprolol, (5) Anemia of chronic renal failure, stage 4 (severe): Code(s): N18.4 - Chronic kidney disease, stage 4 (severe); D63.1 - Anemia in chronic kidney disease Status: Acute Assessment and Plan: Chronic and stable. (6) Coronary artery disease: Code(s): I25.10 - Atherosclerotic heart disease of [place] coronary artery without angina pectoris Status: Acute Assessment and Plan: Patient has a history of 4 coronary stents. Continue with metoprolol, Plavix, simvastatin, and Zetia. Continue with Ranexa and aspirin. Additional Plan DVT prophylaxis -Lovenox Stress ulcer prophylaxis -patient is on PPI at home Nutrition -currently asymptomatic, will advance diet as tolerated Code Status - Full Code 05/16/2021 Short stay in ICU DKA has resolved and gap is closed patient is cleared for transfer to IMU Continue current care No source of infection identified, DKA suspected to be secondary to noncompliance alone PD per Nephrology Continue home med Transition to the subcutaneous insulin will need to restart insulin pump at discharge Patient will need close follow-up with Endocrinology Diabetic diet PT OT consult Subjective Date/time seen: 05/17/21 11:44 Interval history: Pt was in ICU forDKA pt was finding difficulty with insulin compliance and he is considering discontinuing his insulin pump. Pt has history of DM type 1 and esrd and high bps. chest pain is resolved. Pt complains of abdominal pain and high blood sugars. Review of Systems Review of Systems: All systems reviewed & are unremarkable except as noted in HPI and below Exam Narrative: General:Morbidly obese Lungs/Chest: Lungs are clear Abdomen: Morbidly obese. Soft. NT lower quadrant. PD catheter in left lower quadrant Extremities: No clubbing, no cyanosis, bilateral 1+ pitting edema Neurologic: NL Skin: No Rash Objective Data Vital Signs Vital Signs: Vital Signs - 24 hr 05/16/21 12:00 05/16/21 16:00 05/16/21 20:39 Temperature 36.6 C 35.6 C L Pulse Rate 62 63 72 Respiratory Rate 18 20 Blood Pressure 124/53 L 130/56 L Pulse Oximetry 96 97 05/16/21 20:44 05/16/21 22:38 05/17/21 00:00 Temperature 36.9 C 37.1 C Pulse Rate 71 76 64 Respiratory Rate 16 18 Blood Pressure 158/73 H 154/54 H Pulse Oximetry 95 96 96 05/17/21 06:00 05/17/21 08:00 05/17/21 08:24 Temperature 36.7 C 36.4 C Pulse Rate 66 69 64 Respiratory Rate 16 20 Blood Pressure 157/58 H 134/57 L Pulse Oximetry 98 96 Intake/Output Intake/Output: Intake & Output 05/14/21 05/15/21 05/16/21 05/17/21 23:59 23:59 23:59 23:59 Intake Total 3300 2043 500 Output Total 0 550 Balance 3300 1493 500 Meds/Results Medications: Active Medications Generic Name Dose Route Start Last Admin
[2021-05-17] MEDS: INSULIN ASPART (*BKC) 100 UNITS/ML SUB-Q ×3 (11:46→20:54)
[2021-05-17 11:47] LABS: Glucose Point of Care 344 mg/dl (65-105)
--- NOTE | 2021-05-17 11:54 | PCDIET ---
Nutrition consult for DKA. See Nutritional Teaching Intervention. Thank you for the consult.
--- NOTE | 2021-05-17 12:56 | PM.PNNEP ---
Subjective Date/time seen: 05/17/21 12:56 Objective Data Vital Signs Vital Signs: Vital Signs - 24 hr 05/16/21 16:00 05/16/21 20:39 05/16/21 20:44 Temperature 35.6 C L 36.9 C Pulse Rate 63 72 71 Respiratory Rate 20 16 Blood Pressure 130/56 L 158/73 H Pulse Oximetry 97 95 05/16/21 22:38 05/17/21 00:00 05/17/21 06:00 Temperature 37.1 C 36.7 C Pulse Rate 76 64 66 Respiratory Rate 18 16 Blood Pressure 154/54 H 157/58 H Pulse Oximetry 96 96 98 05/17/21 08:00 05/17/21 08:24 05/17/21 12:50 Temperature 36.4 C 37.0 C Pulse Rate 69 64 63 Respiratory Rate 20 18 Blood Pressure 134/57 L 167/57 H Pulse Oximetry 96 96 Intake/Output Intake/Output: Intake & Output 05/14/21 05/15/21 05/16/21 05/17/21 23:59 23:59 23:59 23:59 Intake Total 3300 2043 740 Output Total 0 550 Balance 3300 1493 740 Meds/Results Medications: Active Medications Generic Name Dose Route Start Last Admin Trade Name Freq PRN Reason Stop Dose Admin Acetaminophen 650 mg 05/17/21 05:19 05/17/21 06:02 Acetaminophen 325 Mg Tablet PO 650 mg Q6H PRN Administration Mild Pain (1-3) or Fever Amlodipine Besylate 10 mg 05/15/21 13:05 05/17/21 08:25 Amlodipine Besylate 5 Mg Tablet PO 10 mg QAM ASHLEY Administration Aspirin 81 mg 05/15/21 13:05 05/17/21 08:25 Aspirin 81 Mg Enteric Tablet PO 81 mg QAM ASHLEY Administration Atorvastatin Calcium 80 mg 05/15/21 13:05 05/17/21 08:25 Atorvastatin 40 Mg Tablet PO 80 mg DAILY ASHLEY Administration Calcitriol 0.25 mcg 05/15/21 13:10 05/17/21 08:25 Calcitriol 0.25 Mcg Capsule PO 0.25 mcg QAM ASHLEY Administration Calcium Acetate 667 mg 05/15/21 13:00 05/17/21 12:38 Calcium Acetate 667 Mg Tablet PO 667 mg QID ASHLEY Administration Clopidogrel Bisulfate 75 mg 05/15/21 12:45 05/17/21 08:25 Clopidogrel Bisulfate 75 Mg Tablet PO 75 mg QAM ASHLEY Administration Dextrose 12.5 gm 05/15/21 09:47 Dextrose 50% 25 Gm/50 Ml Syringe IV PUSH PRN PRN Hypoglycemia Protocol Ezetimibe 10 mg 05/15/21 13:05 05/17/21 08:25 Ezetimibe 10 Mg Tablet PO 10 mg QAM ASHLEY Administration Enoxaparin Sodium 30 mg 05/16/21 09:00 05/17/21 08:24 Enoxaparin 30 Mg/0.3 Ml Syringe SUB-Q 30 mg DAILY ASHLEY Administration Furosemide 80 mg 05/15/21 17:00 05/17/21 08:25 Furosemide 80 Mg Tablet PO 80 mg BID ASHLEY Administration Glucagon 1 mg 05/15/21 09:47 Glucagon For Inj 1 Mg Vial IM PRN PRN Hypoglycemia Protocol Glucose 15 gm 05/15/21 09:47 Glucose Oral Gel 15 Gm Of Glucse In 37.5 Gm Tube PO PRN PRN Hypoglycemia Protocol Hydralazine HCl 100 mg 05/15/21 14:00 05/17/21 06:04 Hydralazine Hcl 50 Mg Tablet PO 100 mg Q8HR ASHLEY Administration Dextrose 1,000 mls @ 100 mls/hr 05/15/21 09:47 Dextrose 5% 1,000 Ml IVPB PRN PRN Hypoglycemia Protocol Insulin Aspart 4 - 8 units 05/16/21 11:30 05/17/21 11:46 Insulin Aspart (*Bkc) 100 Units/Ml SUB-Q 6 units ACHS ASHLEY Administration Protocol Insulin Glargine 65 units 05/18/21 09:00 Insulin Glargine (*Bkc) 100 Units/Ml SUB-Q QAM ASHLEY Isosorbide Mononitrate 30 mg 05/15/21 13:05 05/17/21 08:24 Isosorbide Mononitrate 30 Mg Tab.Er.24h PO 30 mg QAM ASHELY Administration Metoprolol Tartrate 100 mg 05/15/21 21:00 05/17/21 08:24 Metoprolol Tartrate 50 Mg Tab PO 100 mg Q12HR ASHLEY Administration Nitroglycerin 0.4 mg 05/15/21 12:42 Nitroglycerin Sl 0.4 Mg Tablet SUBLINGUAL Q5MIN PRN Chest Pain Ondansetron HCl 4 mg 05/17/21 08:22 05/17/21 08:38 Ondansetron Inj 4 Mg/2 Ml Vial IV PUSH 4 mg Q6H PRN Administration Nausea And Vomiting Pantoprazole Sodium 40 mg 05/15/21 13:05 05/17/21 08:24 Pantoprazole 40 Mg Tablet PO 40 mg QAM ASHLEY Administration Ranolazine 500 mg 05/15/21 21:00 05/17/21 08:24 Ranolazine 500 Mg Tab.Er.12h PO
--- NOTE | 2021-05-17 14:48 | PM.CNNEP ---
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 Patient gets 4 cycles of treatment 2 L dwell volume, use 2.5% dextrose, 9 hours total treatment. Continue current medication for blood pressure. Monitor H&H. Thanks for allowing us to participate in the care of this patient. Continue to follow him closely during this hospital stay. History of Present Illness Reason for Consult Consult date: 05/17/21 Chief Complaint Chief complaint: DKA History of Present Illness Narrative: 50 year old male diabetic patient that has a history of diabetes type 1 that was diagnosed at age of 13 the patient stated that he believes that his insulin pump failed him and that it was kinked today. The patient has had multiple episodes of DKA. The patient stated that he thinks that he might disconnected his insulin pump last night during sleep but he woke up this morning he was very tired he was having some chest pain. He went to check his blood sugar and it was greater than 500 so came to the emergency room for evaluation. The patient stated that his blood sugars were running in the 200s yesterday and he was feeling well. The patient has a history of having for cardiac stents in the past. His H&H is 12.0 in 39.9. ABGs pH 7.2-9 CO2 27.5 O2 was 83.1. The patient is lethargic but wakes up to answer questions. Patient's blood sugar was read just heard as 1297. His troponin nonreactive. His B hop is 5.42. Spiral Runner was notified. He agreed to consultation on this patient. The patient was started on IV fluids and given IV insulin. He was started on it insulin drip and admitted to ICU inpatient status on the date of service of 05/15/2021. Anion gap is closed and patient has been moved over to the ICU. Renal services consulted for continuation of peritoneal dialysis treatment. We continued CCPD and patient has been tolerating peritoneal dialysis treatment fairly well. Review of Systems Review of Systems: Patient is denying having any headache dizziness. No chest pain shortness of breath. All other 14 point systems reviewed and negative other than mentioned in the history of present illness. [facility] Past Medical History Medical History (Updated 05/16/21 @ 08:56 by Cristhian Mi MD) Allergy to intravenous contrast Anemia in chronic kidney disease Anxiety Arthritis Bronchitis Congestive heart failure Echocardiogram May 2017 EF of 50% with hypokinetic apical, inferior and basal inferior lateral segment, mild enlargement of left atrium. Coronary artery disease With history of several stents. Followed by [facility]. Deep venous thrombosis Chronic right popliteal DVT. Diabetic peripheral neuropathy Diabetic retinopathy End-stage renal disease on peritoneal dialysis Essential hypertension Fracture left lower ext Gastroesophageal reflux disease Gout Hyperlipidemia Obstructive sleep apnea With inconsistent CPAP use. Paroxysmal atrial fibrillation The patient denies Renal osteodystrophy Secondary hyperparathyroidism of renal origin Seizure X1 with etiology unknown Type 1 diabetes mellitus Onset around age 13. Surgical History Surgical History H/O hernia repair History of anterior cruciate ligament surgery (~2000) Left knee History of appendectomy (~2006) History of arthroscopy of left knee History of bilateral carpal tunnel release Right 05/03/2018. Left 06/02/2018. History of card
[2021-05-17 15:59] LABS: Add Urine Microscopic? YES; Appearance Urine Clear (Clear); Bilirubin Urine Negative (Negative); Blood Urine Negative (Negative); Color Urine Yellow (Yellow); Glucose Urine UA 3+ mg/dL (Negative); Ketones Urine Negative (Negative); Leukocyte Esterase Ur Negative LEU/UL (NEGATIVE); Nitrate Urine Negative (Negative); Protein Urine Negative (Negative); RBC Urine 0-2 /hpf (0-2); Specific Grav Ur 1.009 (1.001-1.035); Urobilinogen Urine Negative mg/dL (<2.0)
[2021-05-17 16:35] LABS: Glucose Point of Care 291 mg/dl (65-105)
[2021-05-17 20:58] LABS: Glucose Point of Care 303 mg/dl (65-105)
[2021-05-18] VITALS (8 sets, daily range): BP systolic 148–161; BP diastolic 47–55; PULSE 66–76; RESP 16–18; TEMP 36.2–37.5; O2SAT 91–96
[2021-05-18 06:10] LABS: Hematocrit 30.5 % (42.0-52.0); Mean Corpuscular HGB Conc 36.1 g/dl (32-36); Mean Corpuscular Hemoglobin 32.6 pg (26-34); Mean Corpuscular Volume 90.5 fl (80-100); Mean Platelet Volume 10.4 fl (7.4-10.4); Platelet Count Result 159 k/mm3 (150-375); Red Blood Count 3.37 M/mm3 (4.6-6.20); Red Cell Distribution Width 12.1 % (11.5-14.5); White Blood Count 6.7 K/mm3 (4.5-10.0)
[2021-05-18 06:28] LABS: Alanine Aminotransferase 35 U/L (4-50); Albumin Level 3.5 g/dL (3.5-5.1); Alkaline Phosphatase 110 U/L (38-126); Anion Gap 11 mmol/L (8-16); Aspartate Amino Transferase 39 U/L (17-59); Bilirubin,Total 0.8 mg/dL (0.2-1.3); Blood Urea Nitrogen 66 mg/dL (9-20); Calcium 8.7 mg/dL (8.4-10.2); Carbon Dioxide 25 mmol/L (22-30); Chloride 96 mmol/L (98-107); Estimated CRCL calculation 20 ml/min; Estimated Glomerular Filt Rate 11; Glucose 283 mg/dL (65-110); Magnesium 2.1 mg/dL (1.6-2.3); Potassium 3.8 mmol/L (3.4-5.0); Sodium 132 mmol/L (137-145)
[2021-05-18] MEDS: hydrALAZINE HCL 50 MG TABLET 100 MG PO ×3 (06:38→20:14)
[2021-05-18] MEDS: INSULIN ASPART (*BKC) 100 UNITS/ML SUB-Q ×3 (06:40→16:45)
[2021-05-18 06:51] LABS: Glucose Point of Care 338 mg/dl (65-105)
[2021-05-18] MEDS: METOPROLOL TARTRATE 50 MG TAB 100 MG PO ×2 (08:11→20:14)
[2021-05-18] MEDS: ASPIRIN 81 MG ENTERIC TABLET PO (08:11)
[2021-05-18] MEDS: CLOPIDOGREL BISULFATE 75 MG TABLET PO (08:11)
[2021-05-18] MEDS: calcitrioL 0.25 MCG CAPSULE PO (08:11)
[2021-05-18] MEDS: CALCIUM ACETATE 667 MG TABLET PO ×4 (08:11→20:15)
[2021-05-18] MEDS: ATORVASTATIN 40 MG TABLET 80 MG PO (08:11)
[2021-05-18] MEDS: amLODIPine BESYLATE 5 MG TABLET 10 MG PO (08:11)
[2021-05-18] MEDS: ISOSORBIDE MONONITRATE 30 MG TAB.ER.24H PO (08:12)
[2021-05-18] MEDS: PANTOPRAZOLE 40 MG TABLET PO (08:12)
[2021-05-18] MEDS: FUROSEMIDE 80 MG TABLET PO ×2 (08:12→16:47)
[2021-05-18] MEDS: valACYclovir HCL 500 MG TABLET PO ×3 (08:12→16:47)
[2021-05-18] MEDS: RANOLAZINE 500 MG TAB.ER.12H PO ×2 (08:12→20:14)
[2021-05-18] MEDS: EZETIMIBE 10 MG TABLET PO (08:12)
[2021-05-18] MEDS: ENOXAPARIN 30 MG/0.3 ML SYRINGE SUB-Q (08:12)
[2021-05-18] MEDS: INSULIN GLARGINE (*BKC) 100 UNITS/ML 65 UNITS SUB-Q (09:26)
[2021-05-18 12:01] LABS: Glucose Point of Care 237 mg/dl (65-105)
--- NOTE | 2021-05-18 14:13 | PM.IMPN ---
Progress Note: A&P Assessment and Plan (1) DKA, type 1: Qualifiers: Diabetes mellitus complication detail: without coma Qualified Code(s): E10.10 - Type 1 diabetes mellitus with ketoacidosis without coma Code(s): E10.10 - Type 1 diabetes mellitus with ketoacidosis without coma Status: Acute Assessment and Plan: DKA protocol ICU. 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 The patient feels that his insulin pump failed him. The patient has had multiple admissions for DKA. Order UA to check or ketones, bolus as sugars are still high 05/18/21 14:13 patient is a 50-year-old with history of type 1 diabetes on insulin pump presented emergency department with significant elevated blood sugar and was found to be in DKA, patient was admitted in ICU was started on IV fluids and IV insulin since then his sugar have improved, patient currently on medical floor, patient stated his insulin pump was malfunctioning and and caused him to have hyperglycemia, patient also has history end-stage renal disease on peritoneal dialysis seen by residential specialist and being managed, currently patient is on sliding scale off insulin pump, patient also states that insulin pump is functioning now, will get the patient started the pump and monitor overnight if blood sugar remains stable within normal limits may discharge patient home tomorrow. (2) ESRD (end stage renal disease) on dialysis: Code(s): N18.6 - End stage renal disease; Z99.2 - Dependence on renal dialysis Status: Acute Assessment and Plan: Nephrology has been consulted. Patient has peritoneal dialysis catheter (3) Obstructive sleep apnea: Code(s): G47.33 - Obstructive sleep apnea (adult) (pediatric) Status: Acute Assessment and Plan: Auto titrate to home setting (4) HTN (hypertension): Code(s): I10 - Essential (primary) hypertension Status: Acute Assessment and Plan: Continue with hydralazine, Lasix, isosorbide, metoprolol, (5) Anemia of chronic renal failure, stage 4 (severe): Code(s): N18.4 - Chronic kidney disease, stage 4 (severe); D63.1 - Anemia in chronic kidney disease Status: Acute Assessment and Plan: Chronic and stable. (6) Coronary artery disease: Code(s): I25.10 - Atherosclerotic heart disease of [place] coronary artery without angina pectoris Status: Acute Assessment and Plan: Patient has a history of 4 coronary stents. Continue with metoprolol, Plavix, simvastatin, and Zetia. Continue with Ranexa and aspirin. Additional Plan DVT prophylaxis -Lovenox Stress ulcer prophylaxis -patient is on PPI at home Nutrition -currently asymptomatic, will advance diet as tolerated Code Status - Full Code 05/16/2021 Short stay in ICU DKA has resolved and gap is closed patient is cleared for transfer to IMU Continue current care No source of infection identified, DKA suspected to be secondary to noncompliance alone PD per Nephrology Continue home med Transition to the subcutaneous insulin will need to restart insulin pump at discharge Patient will need close follow-up with Endocrinology Diabetic diet PT OT consult Subjective Date/time seen: 05/18/21 14:13 patient is a 50-year-old with history of type 1 diabetes on insulin pump presented emergency department with significant elevated blood sugar and was found to be in DKA, patient was admitted in ICU was started on IV fluids and IV insulin since then his sugar have improved, patient currently on medical floor, patient stated his insulin pump was malfunctioning and and caused him to have hyperglycemia, patient also has history end-stage renal disease on peritoneal dialysis seen by residential specialist and being managed, currently patient is on sliding scale off insulin pump, patient also states that insulin pump is functioning now, will get the patient started the pump and monitor overnight if blood sugar remains stable within normal limits may discharge patie
[2021-05-18 16:46] LABS: Glucose Point of Care 234 mg/dl (65-105)
--- NOTE | 2021-05-18 20:17 | PC.NURSE ---
Insulin pump in use no sliding scale given.
[2021-05-18 20:39] LABS: Glucose Point of Care 210 mg/dl (65-105)
[2021-05-19] MEDS: ONDANSETRON INJ 4 MG/2 ML VIAL IV PUSH (00:02)
[2021-05-19 06:19] LABS: Hematocrit 30.8 % (42.0-52.0); Hemoglobin 10.8 g/dL (14.0-18.0); Mean Corpuscular HGB Conc 35.1 g/dl (32-36); Mean Corpuscular Hemoglobin 32.9 pg (26-34); Mean Corpuscular Volume 93.9 fl (80-100); Mean Platelet Volume 10.2 fl (7.4-10.4); Platelet Count Result 169 k/mm3 (150-375); Red Blood Count 3.28 M/mm3 (4.6-6.20); Red Cell Distribution Width 12.1 % (11.5-14.5); White Blood Count 7.5 K/mm3 (4.5-10.0)
[2021-05-19 06:31] VITALS: BP 188/76; PULSE 66; RESP 18; TEMP 36.4; O2SAT 91
[2021-05-19] MEDS: hydrALAZINE HCL 50 MG TABLET 100 MG PO (06:31)
[2021-05-19 06:33] LABS: Alanine Aminotransferase 39 U/L (4-50); Albumin Level 3.7 g/dL (3.5-5.1); Alkaline Phosphatase 121 U/L (38-126); Anion Gap 9 mmol/L (8-16); Aspartate Amino Transferase 43 U/L (17-59); Bilirubin,Total 0.9 mg/dL (0.2-1.3); Blood Urea Nitrogen 63 mg/dL (9-20); Carbon Dioxide 29 mmol/L (22-30); Chloride 98 mmol/L (98-107); Estimated CRCL calculation 21 ml/min; Estimated Glomerular Filt Rate 12; Glucose 113 mg/dL (65-110); Magnesium 2.1 mg/dL (1.6-2.3); Potassium 3.4 mmol/L (3.4-5.0); Sodium 136 mmol/L (137-145)
[2021-05-19 08:32] LABS: Glucose Point of Care 89 mg/dl (65-105)
--- NOTE | 2021-05-19 08:50 | PM.DS ---
DS: Admitting Diagnosis Discharge Date 05/19/2021 Admitting Diagnosis Chest pain elevated blood sugar DS: Discharge Diagnosis Discharge Diagnosis (1) DKA, type 1: Qualifiers: Diabetes mellitus complication detail: without coma Qualified Code(s): E10.10 - Type 1 diabetes mellitus with ketoacidosis without coma Code(s): E10.10 - Type 1 diabetes mellitus with ketoacidosis without coma Status: Acute Assessment and Plan: DKA protocol ICU. staff educator. The patient feels that his insulin pump failed him. The patient has had multiple admissions for DKA. Order UA to check or ketones, bolus as sugars are still high 05/18/21 14:13 patient is a 50-year-old with history of type 1 diabetes on insulin pump presented emergency department with significant elevated blood sugar and was found to be in DKA, patient was admitted in ICU was started on IV fluids and IV insulin since then his sugar have improved, patient currently on medical floor, patient stated his insulin pump was malfunctioning and and caused him to have hyperglycemia, patient also has history end-stage renal disease on peritoneal dialysis seen by fuel pilot engineer and being managed, currently patient is on sliding scale off insulin pump, patient also states that insulin pump is functioning now, will get the patient started the pump and monitor overnight if blood sugar remains stable within normal limits may discharge patient home tomorrow. (2) ESRD (end stage renal disease) on dialysis: Code(s): N18.6 - End stage renal disease; Z99.2 - Dependence on renal dialysis Status: Acute Assessment and Plan: Nephrology has been consulted. Patient has peritoneal dialysis catheter (3) Obstructive sleep apnea: Code(s): G47.33 - Obstructive sleep apnea (adult) (pediatric) Status: Acute Assessment and Plan: Auto titrate to home setting (4) HTN (hypertension): Code(s): I10 - Essential (primary) hypertension Status: Acute Assessment and Plan: Continue with hydralazine, Lasix, isosorbide, metoprolol, (5) Anemia of chronic renal failure, stage 4 (severe): Code(s): N18.4 - Chronic kidney disease, stage 4 (severe); D63.1 - Anemia in chronic kidney disease Status: Acute Assessment and Plan: Chronic and stable. (6) Coronary artery disease: Code(s): I25.10 - Atherosclerotic heart disease of [place] coronary artery without angina pectoris Status: Acute Assessment and Plan: Patient has a history of 4 coronary stents. Continue with metoprolol, Plavix, simvastatin, and Zetia. Continue with Ranexa and aspirin. DS: Summary Hospital Course Reason for hospitalization: DKA Hospital Course: patient is a 50-year-old with history of type 1 diabetes on insulin pump presented emergency department with significant elevated blood sugar and was found to be in DKA, patient was admitted in ICU was started on IV fluids and IV insulin since then his sugar have improved, patient currently on medical floor, patient stated his insulin pump was malfunctioning and and caused him to have hyperglycemia, patient also has history end-stage renal disease on peritoneal dialysis seen by fuel pilot engineer and being managed, currently patient is on sliding scale off insulin pump, patient also states that insulin pump is functioning now, will get the patient started the pump and monitor overnight if blood sugar remains stable within normal limits may discharge patient home tomorrow. Patient patient started using his insulin pump, was placed sliding scale blood sugars are close to normal patient is clinically stable will discharge patient today Status at Discharge Functional status at discharge: independent ambulation Overall status at discharge: patient is back to baseline Time Spent with Patient Time attestation: Total time spent providing and/or coordinating discharge services: Patient was seen and examined at the [facility]
[2021-05-19] MEDS: valACYclovir HCL 500 MG TABLET PO (09:09)
[2021-05-19 09:10] VITALS: PULSE 70
[2021-05-19] MEDS: CALCIUM ACETATE 667 MG TABLET PO (09:10)
[2021-05-19] MEDS: METOPROLOL TARTRATE 50 MG TAB 100 MG PO (09:10)
[2021-05-19] MEDS: ASPIRIN 81 MG ENTERIC TABLET PO (09:10)
[2021-05-19] MEDS: CLOPIDOGREL BISULFATE 75 MG TABLET PO (09:11)
[2021-05-19] MEDS: FUROSEMIDE 80 MG TABLET PO (09:11)
[2021-05-19] MEDS: ISOSORBIDE MONONITRATE 30 MG TAB.ER.24H PO (09:11)
[2021-05-19] MEDS: RANOLAZINE 500 MG TAB.ER.12H PO (09:11)
[2021-05-19] MEDS: ATORVASTATIN 40 MG TABLET 80 MG PO (09:11)
[2021-05-19] MEDS: EZETIMIBE 10 MG TABLET PO (09:11)
[2021-05-19] MEDS: amLODIPine BESYLATE 5 MG TABLET 10 MG PO (09:11)
[2021-05-19] MEDS: PANTOPRAZOLE 40 MG TABLET PO (09:11)
[2021-05-19] MEDS: calcitrioL 0.25 MCG CAPSULE PO (09:12)
== END 2021-05-19 11:43 | disposition home or self-care (01) | DRG 637 ==
LOC: ANHED 11:41 → ANH3MED 05-17 11:55 → ANHICU 05-20 15:14
PROVIDERS: Family Medicine; Internal Medicine; Nurse Practitioner; Admitting Provider Hospitalist; Emergency Provider Emergency Medicine; PCP Family Medicine; Visit Provider Family Medicine
DX: E10.10 Type 1 diabetes mellitus with ketoacidosis without coma (principal); N18.6 End stage renal disease; I82.531 Chronic embolism and thrombosis of right popliteal vein; I13.2 Hypertensive heart and chronic kidney disease with heart failure and with stage 5 chronic kidney disease, or end stage renal disease; N25.81 Secondary hyperparathyroidism of renal origin; Z96.1 Presence of intraocular lens; I25.118 Atherosclerotic heart disease of native coronary artery with other forms of angina pectoris; E10.42 Type 1 diabetes mellitus with diabetic polyneuropathy; E10.319 Type 1 diabetes mellitus with unspecified diabetic retinopathy without macular edema; E10.22 Type 1 diabetes mellitus with diabetic chronic kidney disease; I50.9 Heart failure, unspecified; D63.1 Anemia in chronic kidney disease; Z99.2 Dependence on renal dialysis; N25.0 Renal osteodystrophy; G47.33 Obstructive sleep apnea (adult) (pediatric); E78.5 Hyperlipidemia, unspecified; K21.9 Gastro-esophageal reflux disease without esophagitis; E87.5 Hyperkalemia; M10.9 Gout, unspecified; Z91.19 Patient's noncompliance with other medical treatment and regimen; Z79.4 Long term (current) use of insulin; Z96.41 Presence of insulin pump (external) (internal); Z79.82 Long term (current) use of aspirin; Z79.899 Other long term (current) drug therapy; Z95.5 Presence of coronary angioplasty implant and graft; Z98.49 Cataract extraction status, unspecified eye
CPT/HCPCS: 36415; 36600; 71046; 80048; 80053; 81001; 82010; 82805; 82947; 82948; 83036; 83735; 84100; 84484; 85025; 85027; 85610; 85730; 87040; 93005; 96361; 96374; 99285; A9270; J1650; J1815; J2405; J3480; J7030; J7040

== ENCOUNTER 2021-07-14 23:12 | Emergency (ER) | payer MEDICARE, MEDICAID, SELFPAY ==
--- NOTE | ~2021-07-14 | XR_ITS ---
EXAMINATION: XR hip LT 2V w AP pelvis INDICATION: Left-sided groin pain TECHNIQUE: AP view the pelvis and two views of the left hip are obtained. COMPARISON: 12/27/2019 FINDINGS: Bone alignment is normal. There is no fracture. Calcified atherosclerosis is noted. There i s mild osteoarthritis of the hips. Phleboliths are noted in the pelvis. IMPRESSION: 1. No acute osseous abnormality. Reviewed, dictated and finalized at location A. ICULTURE TEACHER
[2021-07-14 23:21] VITALS: BP 129/64; PULSE 72; RESP 18; TEMP 36.8; O2SAT 98
[2021-07-15 00:05] LABS: Glucose Point of Care 51 mg/dl (65-105)
--- NOTE | 2021-07-15 00:07 | ED.ABDPAIN ---
HPI - Abdominal Pain General Chief Complaint: Abdominal Pain Stated Complaint: Left hip pain after fall 1 day ago Time Seen by Provider: 07/14/21 23:19 Source: patient and RN notes reviewed Mode of arrival: ambulatory Limitations: no limitations History of Present Illness HPI narrative: This is a 50 year old male with history of hypertension, DM, ESRD on peritoneal dialysis who presents for evaluation of left groin pain. He states last night he accidentally slipped and fell. He states he landed on his left knee but he was able to get up . He states he felt fine until tonight when he was at work. He states he was leaning over to pick something up when he noticed left groin pain. He denies left knee pain. He denies hitting his head or LOC last night. He denies nausea , vomiting or dizziness. He has not performed his nightly peritoneal dialysis so he came to make sure it was okay. He states he just started back working 2 days ago and he is more active than usual. Related Data Home Medications Medication Instructions Recorded Confirmed aspirin 81 mg PO DAILY 06/04/19 05/15/21 calcitriol 0.25 mcg PO QAM 06/04/19 05/15/21 clopidogrel 75 mg PO DAILY 06/04/19 05/15/21 ergocalciferol (vitamin D2) 50,000 unit PO WEEKLY 06/04/19 05/15/21 [Vitamin D2] hydralazine 100 mg PO Q8H 06/04/19 05/15/21 nitroglycerin 0.4 mg SUBLINGUAL Q5-15M PRN 06/04/19 05/15/21 ezetimibe [Zetia] 10 mg PO DAILY 09/09/19 05/15/21 isosorbide mononitrate 30 mg PO DAILY 09/09/19 05/15/21 metoprolol tartrate 100 mg PO Q12H 09/09/19 05/15/21 ranolazine 500 mg tablet,extended 500 mg PO Q12H 09/24/19 05/15/21 release,12 hr cetirizine [All Day Allergy 10 mg PO DAILY 12/26/19 05/15/21 (cetirizine)] furosemide 80 mg PO BID 02/02/20 05/15/21 calcium acetate(phosphat bind) 667 mg PO QID 03/31/20 05/15/21 famotidine 40 mg PO HS 03/31/20 05/15/21 atorvastatin 80 mg PO HS 11/26/20 05/15/21 colchicine [Colcrys] 0.6 mg PO QMWF 11/26/20 05/15/21 meloxicam 7.5 mg PO DAILY PRN 11/26/20 05/15/21 omeprazole 20 mg PO QAM 11/26/20 05/15/21 valacyclovir 500 mg PO TID 11/26/20 05/15/21 clonidine HCl 0.2 mg PO Q8HR 02/01/21 05/15/21 gemfibrozil 600 mg PO BID 05/15/21 05/15/21 Allergies Allergy/AdvReac Type Severity Reaction Status Date / Time allopurinol Allergy Severe Other Verified 06/21/21 10:51 iohexol Allergy Severe Difficulty Verified 06/21/21 10:51 [From CONTRAST - CT, XRAY] Breathing ticagrelor Allergy Intermediate Rash Verified 06/21/21 10:51 Review of Systems Review of Systems: All systems reviewed & are unremarkable except as noted in HPI and below PMFSH Past Medical History Medical History Allergy to intravenous contrast Anemia in chronic kidney disease Anxiety Arthritis Bronchitis Congestive heart failure Echocardiogram May 2017 EF of 50% with hypokinetic apical, inferior and basal inferior lateral segment, mild enlargement of left atrium. Coronary artery disease With history of several stents. Followed by [facility]. Deep venous thrombosis Chronic right popliteal DVT. Diabetic peripheral neuropathy Diabetic retinopathy End-stage renal disease on peritoneal dialysis Essential hypertension Fracture left lower ext Gastroesophageal reflux disease Gout Hyperlipidemia Obstructive sleep apnea With inconsistent CPAP use. Paroxysmal atrial fibrillation The patient denies Renal osteodystrophy Secondary hyperparathyroidism of renal origin Seizure X1 with etiology unknown Type 1 diabetes mellitus Onset around age 13. Surgical History Surgical History H/O hernia repair History of anterior cruciate ligament surgery (~2000) Left knee History of appendectomy (~2006) History of arthroscopy of left knee History of bilateral carpal tunnel release Right 05/03/2018. Left 06/02/2018. History of cardiac catheteriza
[2021-07-15 00:38] LABS: Basophils Absolute Auto 0.1 K/mm3 (0.0-0.1); Basophils Percent Auto 0.7 % (0.2-1.2); Eosinophils Absolute Auto 0.2 K/mm3 (0-0.3); Eosinophils Percent Auto 2.4 % (0-4.4); Hematocrit 32.7 % (42.0-52.0); Hemoglobin 11.7 g/dL (14.0-18.0); Immature Granulocyte Absolute 0.03 K/mm3 (0.00-0.031); Immature Granulocyte Percent A 0.4 % (0-0.5); Lymphocytes Absolute Auto 2.65 K/mm3 (0.9-3.2); Lymphocytes Percent Auto 35.2 % (18.3-44.2); Mean Corpuscular HGB Conc 35.8 g/dl (32-36); Mean Corpuscular Hemoglobin 33.4 pg (26-34); Mean Corpuscular Volume 93.4 fl (80-100); Monocytes Absolute Auto 0.9 K/mm3 (0.1-0.6); Monocytes Percent Auto 12.4 % (2.6-8.5); Neutrophils Absolute Auto 3.7 K/mm3 (1.3-6.7); Neutrophils Percent Auto 48.9 % (45.5-73.1); Platelet Count Result 215 k/mm3 (150-375); Red Cell Distribution Width 13.2 % (11.5-14.5); White Blood Count 7.5 K/mm3 (4.5-10.0)
[2021-07-15 00:49] LABS: Alanine Aminotransferase 57 U/L (4-50); Albumin Level 3.9 g/dL (3.5-5.1); Alkaline Phosphatase 116 U/L (38-126); Anion Gap 10 mmol/L (8-16); Aspartate Amino Transferase 66 U/L (17-59); Bilirubin,Total 0.4 mg/dL (0.2-1.3); Blood Urea Nitrogen 61 mg/dL (9-20); Carbon Dioxide 25 mmol/L (22-30); Chloride 100 mmol/L (98-107); Estimated CRCL calculation 20 ml/min; Estimated Glomerular Filt Rate 11; Glucose 92 mg/dL (65-110); Potassium 3.9 mmol/L (3.4-5.0); Sodium 135 mmol/L (137-145)
[2021-07-15 01:27] VITALS: BP 120/83; PULSE 68; RESP 18; O2SAT 96
[2021-07-15 02:11] LABS: Glucose Point of Care 182 mg/dl (65-105)
== END 2021-07-15 02:10 | disposition home or self-care (01) ==
PROVIDERS: Emergency Provider General Practice; PCP Family Medicine
DX: S39.011A Strain of muscle, fascia and tendon of abdomen, initial encounter (principal); E10.22 Type 1 diabetes mellitus with diabetic chronic kidney disease; I13.2 Hypertensive heart and chronic kidney disease with heart failure and with stage 5 chronic kidney disease, or end stage renal disease; I50.9 Heart failure, unspecified; N18.6 End stage renal disease; Z99.2 Dependence on renal dialysis; D63.1 Anemia in chronic kidney disease; E10.42 Type 1 diabetes mellitus with diabetic polyneuropathy; E10.319 Type 1 diabetes mellitus with unspecified diabetic retinopathy without macular edema; I25.10 Atherosclerotic heart disease of native coronary artery without angina pectoris; E78.5 Hyperlipidemia, unspecified; I48.0 Paroxysmal atrial fibrillation; G47.33 Obstructive sleep apnea (adult) (pediatric); N25.0 Renal osteodystrophy; N25.81 Secondary hyperparathyroidism of renal origin; M19.90 Unspecified osteoarthritis, unspecified site; K21.9 Gastro-esophageal reflux disease without esophagitis; Z86.718 Personal history of other venous thrombosis and embolism; Z95.5 Presence of coronary angioplasty implant and graft; Z79.82 Long term (current) use of aspirin; Z98.49 Cataract extraction status, unspecified eye; Z96.1 Presence of intraocular lens; F17.200 Nicotine dependence, unspecified, uncomplicated; W01.0XXA Fall on same level from slipping, tripping and stumbling without subsequent striking against object, initial encounter
CPT/HCPCS: 36415; 73502; 80053; 82948; 85025; 99283

== ENCOUNTER → 2021-07-23 02:06 | Outpatient (CLI) | payer MEDICARE, MEDICAID, SELFPAY ==
[2021-07-23 17:54] LABS: SARS-CoV-2 RNA PCR Negative
== END ==
PROVIDERS: PCP Family Medicine; Visit Provider Family Medicine
DX: R68.89 Other general symptoms and signs (principal); Z20.822 Contact with and (suspected) exposure to COVID-19
CPT/HCPCS: C9803; U0003; U0005

== ENCOUNTER 2021-11-30 12:47 | Outpatient (CLI) | payer MEDICARE, MEDICAID, SELFPAY ==
--- NOTE | ~2021-11-30 | XR_ITS ---
EXAMINATION: XR chest 2V DATE: 11/30/2021 13:02 INDICATION: Shortness of breath TECHNIQUE: PA and lateral views of the chest are obtained. COMPARISON: 05/15/2021 FINDINGS: The lungs are free of acute opacities. There is mild atelectasis of the left lung base. The re is no pleural effusion or pneumothorax. The cardiomediastinal silhouette is normal. There is mild thoracic spondylosis. IMPRESSION: 1. No acute cardiopulmonary abnormality. Reviewed, dictated and finalized at location A.
== END 2021-11-30 12:48 | disposition home or self-care (01) ==
LOC: ANHIMG 12:50
PROVIDERS: PCP Family Medicine; Visit Provider Internal Medicine Nephrology
DX: R06.02 Shortness of breath (principal)
CPT/HCPCS: 71046

== ENCOUNTER 2021-12-08 23:46 | Inpatient (IN) | payer MEDICARE, MEDICAID, SELFPAY ==
--- NOTE | ~2021-12-08 | XR_ITS ---
EXAMINATION: XR chest 1V portable EXAM DATE: 12/09/2021 00:17 INDICATION: Dyspnea, cough, high blood pressure. TECHNIQUE: Portable AP frontal chest x-ray was obtained. Comparison is made to prior examination from 11/30/2021, 05/15/2021. FINDINGS: Linear left midlung zone scarring unchanged. The lungs are otherwise clear. There are no p leural effusions. Cardiac silhouette is prominent but magnified on this AP technique. There is no pneumothorax suspected. The bones and soft tissues are unremarkable. IMPRESSION: No acute cardiopulmonary findings. Reviewed, dictated and finalized at location A.
--- NOTE | ~2021-12-08 | US_ITS ---
EXAMINATION: US venous doppler [facility] EXAM DATE: 12/09/2021 11:56 INDICATION: Dyspnea, evaluate for PE TECHNIQUE: Multiple grayscale, color flow and Doppler images of the lower extremity deep venous syste ms bilaterally were obtained and reviewed. Comparison is made to prior examination from 01/26/2021. FINDINGS: Right side: The right common femoral, femoral and profunda veins demonstrate normal color flow, respi ratory variation, augmentation and compressibility. Compressibility, color flow confirmed within the right popliteal, posterior tibial, peroneal, and greater saphenous veins. Left side: The left common femoral, femoral and profunda veins demonstrate normal color flow, respira tory variation, augmentation and compressibility. Compressibility, color flow confirmed within the l eft popliteal, posterior tibial, peroneal, and greater saphenous veins. IMPRESSION: 1. No lower extremity deep venous thrombosis bilaterally. Reviewed, dictated and finalized at location A.
--- NOTE | ~2021-12-08 | NM_ITS ---
EXAMINATION: NM pulmonary perfusion EXAM DATE: 12/09/2021 03:36 INDICATION: Elevated dimer, rule out PE, dyspnea . TECHNIQUE: A perfusion lung scan was performed. The patient was injected with 5 mCi technetium 99m M AA and imaged. The PISAPED criteria was used for interpretation of this perfusion only exam, with 3 p ossible interpretation outcomes (PE present, PE absent, nondiagnostic). More specifically, an abnorma l perfusion study suggestive of the pulmonary embolism will be interpreted as PE present. A normal sc an, near normal scan, abnormal scan not suggestive of pulmonary embolism will be interpreted as PE ab sent. All other findings or poor image quality interpreted as nondiagnostic. Comparison is made to p rior examination from 09/11/2019. FINDINGS: Minimally heterogeneous perfusion without segmental defect. Near normal perfusion scan. IMPRESSION: Pulmonary embolism absent. Reviewed, dictated and finalized at location A. IMPRESSION: Pulmonary embolism absent.
--- NOTE | 2021-12-08 23:50 | ECG_ITS ---
Measurements Intervals [place] Rate: 63 P: [place]: 220 QRS: -52 QRSD: 122 T: 83 QT: 454 QTc: 465 Interpretive Statements SINUS RHYTHM WITH FIRST-DEGREE AV BLOCK LEFT AXIS DEVIATION [QRS AXIS < -30] LEFT VENTRICULAR HYPERTROPHY AND ST-T CHANGE [VOLTAGE CRITERIA PLUS ST/T ABNORMALITY] ABNORMAL ECG COMPARED TO ECG 05/15/2021 08:48:37 LEFT VENTRICULAR HYPERTROPHY NOW PRESENT Electronically Signed On 12-09-2021 16:46:19 CDT by Aba Flores M.D.
--- NOTE | 2021-12-08 23:52 | ED.SOB ---
HPI - SOB/Dyspnea General Chief Complaint: Shortness of Breath/Dyspnea Stated Complaint: sob x 2 days Time Seen by Provider: 12/08/21 23:52 Source: patient Mode of arrival: ambulatory Limitations: no limitations History of Present Illness HPI Narrative: The patient is a 51year old male with history of hypertension, type I DM on insulin pump, ESRD on peritoneal dialysis, CHF presenting to the emergency department for evaluation of shortness of breath. Patient reports chest pressure over the anterior part of his central chest over the past 4 days. Intermittent at first but constant throughout the day today lasting over 12 hours at this point. Patient reports dyspnea that worsens with exertion. He reports rhinorrhea, dry cough. He denies hemoptysis he denies any pleuritic chest pain. He reports chronic lower extremity swelling without unilateral swelling or redness. He denies recent long car or air travel, denies known history of COVID infection. Patient is vaccinated with booster. Patient denies fever, chills, abdominal pain, nausea or vomiting. There is no radiation of his anterior chest pain to the jaw, neck, shoulder or back. No ripping or tearing sensation to the flanks. Patient denies sore throat. Denies significant ear pain. Patient restate his glucose levels have been greater than 200s, states that he ran out of the pod for his pump, has been doing subcutaneous insulin injections at home. Patient has not missed any dialysis sessions. States that he did take off additional fluid after conversation regarding his symptoms with his blade grader operator this week. Related Data Home Medications Medication Instructions Recorded Confirmed aspirin 81 mg PO DAILY 06/04/19 05/15/21 calcitriol 0.25 mcg PO QAM 06/04/19 05/15/21 clopidogrel 75 mg PO DAILY 06/04/19 05/15/21 ergocalciferol (vitamin D2) 50,000 unit PO WEEKLY 06/04/19 05/15/21 [Vitamin D2] hydralazine 100 mg PO Q8H 06/04/19 05/15/21 nitroglycerin 0.4 mg SUBLINGUAL Q5-15M PRN 06/04/19 05/15/21 ezetimibe [Zetia] 10 mg PO DAILY 09/09/19 05/15/21 isosorbide mononitrate 30 mg PO DAILY 09/09/19 05/15/21 metoprolol tartrate 100 mg PO Q12H 09/09/19 05/15/21 ranolazine 500 mg tablet,extended 500 mg PO Q12H 09/24/19 05/15/21 release,12 hr cetirizine [All Day Allergy 10 mg PO DAILY 12/26/19 05/15/21 (cetirizine)] furosemide 120 mg PO BID 02/02/20 05/15/21 calcium acetate(phosphat bind) 667 mg PO QID 03/31/20 05/15/21 famotidine 40 mg PO HS 03/31/20 05/15/21 atorvastatin 80 mg PO HS 11/26/20 05/15/21 colchicine [Colcrys] 0.6 mg PO QMWF 11/26/20 05/15/21 meloxicam 7.5 mg PO DAILY PRN 11/26/20 05/15/21 omeprazole 20 mg PO QAM 11/26/20 05/15/21 valacyclovir 500 mg PO TID 11/26/20 05/15/21 clonidine HCl 0.2 mg PO Q8HR 02/01/21 05/15/21 gemfibrozil 600 mg PO BID 05/15/21 05/15/21 metolazone 12/09/21 Allergies Allergy/AdvReac Type Severity Reaction Status Date / Time allopurinol Allergy Severe Other Verified 12/09/21 00:07 iohexol Allergy Severe Difficulty Verified 12/09/21 00:07 [From CONTRAST - CT, XRAY] Breathing ticagrelor Allergy Intermediate Rash Verified 12/09/21 00:07 Review of Systems Review of Systems: CONSTITUTIONAL: Denies fever, chills, or sweats. EYES: Denies visual changes, redness, or discharge. Patient reports history of dry eye, states worsening of dry eyes over the past 2 weeks. ENT: Reports runny nose, congestion, denies sore throat, or otalgia. CARDIOVASCULAR: Reports chest pain without palpitations, reports chronic bilateral lower extremity edema RESPIRATORY: Reports cough and shortness of breath GASTROINTESTINAL: Denies abdominal pain, nausea, vomiting, or diarrhea. GENITOURINARY: Denies dysuria or hematuria. SKIN: Denies rash or itching. MUSCULOSKELETAL: Denies back pain, joint pain, or myalgia. NEUROLOGIC: Denies headache, numbness, or weakness. [facility] Past Medical History Medical History
[2021-12-08 23:55] VITALS: BP 201/65; PULSE 65; RESP 20; TEMP 36.6; O2SAT 100
[2021-12-09] VITALS (18 sets, daily range): BP systolic 103–172; BP diastolic 45–80; PULSE 58–77; RESP 12–20; TEMP 36.1–36.8; O2SAT 94–100; BMI 42.0; BMI 42.7
[2021-12-09 00:19] LABS: Basophils Percent Auto 0.5 % (0.2-1.2); Eosinophils Absolute Auto 0.2 K/mm3 (0-0.3); Eosinophils Percent Auto 3.7 % (0-4.4); Hematocrit 31.1 % (42.0-52.0); Hemoglobin 10.9 g/dL (14.0-18.0); Immature Granulocyte Absolute 0.05 K/mm3 (0.00-0.031); Immature Granulocyte Percent A 0.9 % (0-0.5); Lymphocytes Absolute Auto 1.71 K/mm3 (0.9-3.2); Mean Corpuscular Hemoglobin 31.8 pg (26-34); Mean Corpuscular Volume 90.7 fl (80-100); Mean Platelet Volume 9.7 fl (7.4-10.4); Monocytes Absolute Auto 0.7 K/mm3 (0.1-0.6); Monocytes Percent Auto 12.1 % (2.6-8.5); Neutrophils Percent Auto 52.8 % (45.5-73.1); Platelet Count Result 238 k/mm3 (150-375); Red Blood Count 3.43 M/mm3 (4.6-6.20); Red Cell Distribution Width 12.4 % (11.5-14.5); White Blood Count 5.7 K/mm3 (4.5-10.0)
[2021-12-09 00:24] LABS: Glucose Point of Care 377 mg/dl (65-105)
[2021-12-09 00:29] LABS: Alanine Aminotransferase 25 U/L (4-50); Albumin Level 3.8 g/dL (3.5-5.1); Alkaline Phosphatase 107 U/L (38-126); Anion Gap 12 mmol/L (8-16); Aspartate Amino Transferase 31 U/L (17-59); Bilirubin,Total 0.4 mg/dL (0.2-1.3); Blood Urea Nitrogen 65 mg/dL (9-20); Calcium 8.1 mg/dL (8.4-10.2); Carbon Dioxide 25 mmol/L (22-30); Chloride 95 mmol/L (98-107); Estimated CRCL calculation 18 ml/min; Estimated Glomerular Filt Rate 10; Glucose 379 mg/dL (65-110); Potassium 3.5 mmol/L (3.4-5.0); Sodium 132 mmol/L (137-145)
[2021-12-09 00:40] LABS: NT Pro B Type Natriuretic Pept 3040 pg/mL (5-100); Troponin I 0.023 ng/mL (0.000-0.034)
[2021-12-09 01:03] LABS: INR 1.1; Partial Thromboplastin Time 27.5 SECONDS (22.3-36.8); Prothrombin Time 13.5 Seconds (11.1-14.7)
[2021-12-09 01:04] LABS: SARS-CoV-2 RNA PCR Negative
[2021-12-09] MEDS: ALBUTEROL SULFATE NEB 2.5 MG/0.5 ML INH 5 MG INHALATION (01:54)
[2021-12-09] MEDS: IPRATROPIUM BR 0.02% INH SOLN 0.5 MG/2.5 ML VIAL INHALATION (01:55)
[2021-12-09] MEDS: ASPIRIN 325 MG TABLET PO (02:02)
[2021-12-09] MEDS: NITROGLYCERIN SL 0.4 MG TABLET SUBLINGUAL ×4 (02:02→09:19)
--- NOTE | 2021-12-09 02:13 | PC.NURSE ---
initial does of 0.4 mg nitroglycerin given 0202, pt reports still short of breath gave second dose 020, symptoms still not resolved third dose given 021.
[2021-12-09] MEDS: predniSONE 20 MG TABLET 50 MG PO (04:41)
[2021-12-09] MEDS: diphenhydrAMINE HCl CAP 25 MG CAPSULE 50 MG PO (04:41)
[2021-12-09] MEDS: ARTIFICIAL TEARS OPHTH SOLN 15 ML BOTTLE 1 DROP EACH EYE (05:47)
[2021-12-09] MEDS: ENOXAPARIN 100 MG/ML SYRINGE SUB-Q (05:48)
[2021-12-09 06:05] LABS: Troponin I 0.022 ng/mL (0.000-0.034)
--- NOTE | 2021-12-09 06:43 | ADMGEN ---
This patient, Juvenal Daigle Jr., was admitted to IMU Room 213-01 at 0631. Patient/family oriented to hospital policies and general routines including ID bracelet, bed and alarms, visiting hours, pain management, procedures, bathroom and other care routines, personal items, smoking policy, room service/diet, and visiting hours. Information on how to activate the Rapid Response Team has been discussed. Patient/Family are encouraged to report perceived risks to care and to ask questions if they do not understand what they are told or what they should do.
[2021-12-09 06:48] LABS: Glucose Point of Care > 500 mg/dl (65-105)
[2021-12-09 07:27] LABS: Glucose Point of Care > 500 mg/dl (65-105)
--- NOTE | 2021-12-09 08:17 | PCRCNOTE ---
Pt states They have not been wearing their cpap at home it dries out their eyes and they do not want ot wear one here
[2021-12-09] MEDS: INSULIN ASPART (*BKC) 100 UNITS/ML 20 UNITS SUB-Q (08:33)
[2021-12-09] MEDS: INSULIN GLARGINE (*BKC) 100 UNITS/ML 30 UNITS SUB-Q (08:33)
[2021-12-09] MEDS: EZETIMIBE 10 MG TABLET PO (08:47)
--- NOTE | 2021-12-09 08:47 | ECG_ITS ---
Measurements Intervals [place] Rate: 77 P: 20 AL: 189 QRS: -49 QRSD: 120 T: 93 QT: 432 QTc: 491 Interpretive Statements SINUS RHYTHM LEFT ANTERIOR FASCICULAR BLOCK [QRS AXIS <= -45, QR IN I, RS IN II] LEFT VENTRICULAR HYPERTROPHY AND ST-T CHANGE [VOLTAGE CRITERIA PLUS ST/T ABNORMALITY] POSSIBLE ANTEROSEPTAL MYOCARDIAL INFARCTION , OF INDETERMINATE AGE [30 ms Q WAVE IN V1- V4] ABNORMAL ECG COMPARED TO ECG 12/08/2021 23:56:27 LEFT ANTERIOR FASCICULAR BLOCK NOW PRESENT Electronically Signed On 12-09-2021 16:50:24 CDT by Aba Flores M.D.
[2021-12-09] MEDS: MELOXICAM 7.5 MG TABLET PO (08:48)
[2021-12-09] MEDS: CLOPIDOGREL BISULFATE 75 MG TABLET PO (08:48)
[2021-12-09] MEDS: CALCIUM ACETATE 667 MG TABLET PO ×4 (08:48→21:10)
[2021-12-09] MEDS: PANTOPRAZOLE 40 MG TABLET PO (08:48)
[2021-12-09] MEDS: ASPIRIN 81 MG CHEWABLE TABLET PO (08:48)
[2021-12-09] MEDS: METOPROLOL TARTRATE 50 MG TAB 100 MG PO ×2 (08:48→21:09)
[2021-12-09] MEDS: RANOLAZINE 500 MG TAB.ER.12H PO ×2 (08:48→21:08)
[2021-12-09] MEDS: calcitrioL 0.25 MCG CAPSULE PO (08:48)
[2021-12-09] MEDS: hydrALAZINE HCL 50 MG TABLET 100 MG PO ×3 (08:49→21:08)
[2021-12-09] MEDS: LORATADINE 10 MG TABLET PO (08:49)
[2021-12-09] MEDS: ISOSORBIDE MONONITRATE 30 MG TAB.ER.24H PO (08:49)
[2021-12-09] MEDS: FUROSEMIDE 40 MG TABLET 120 MG PO ×2 (08:49→17:38)
[2021-12-09] MEDS: metOLazone 5 MG TABLET PO (08:49)
[2021-12-09] MEDS: gemfibroziL 600 MG TABLET PO ×2 (08:55→17:38)
[2021-12-09 09:35] LABS: Troponin I 0.021 ng/mL (0.000-0.034)
[2021-12-09] MEDS: MORPHINE SULFATE (*CRX) 2 MG/ML INJ IV PUSH ×2 (10:00→14:33)
--- NOTE | 2021-12-09 10:06 | PM.IMHP ---
H&P: HPI History of Present Illness Date/Time: 12/09/21 10:06 Chief Complaint: chest pain, burning eyes Narrative: This is a 51 yo male with PMH Of htn, type 1 DM on insulin pump, ESRD on PD, Congestive heart failrue, CAD s/p stents in the past presents with chest pressure over the retrosternum since past 4 days. After consultation with rug measurer, he increased the bag for his dialysis which hleped his chest pressure.however it came back again yesterday and had been constant throughout the day yesterday. he also reports associated dysphea that worsens with exertion. he reprots no cough, fever, rhinorrhea. he also reporst no pleuritic nature. no recent long car or air travel. he reports chronic lower extremity swelling which has not worsened. no abdominal pain, nausea, vomitoing. The pain is localised non radaiting and no relieving and exacerbating factors. his pod was also out of insulin and hence his blood sugar has been running high. he has been doign subcutaneous insulin injections at home. He also complains of burning pain in his eyes. And watering which she gets off and on every 3 months. He also sees eye doctor for this denies any obvious injury to his eyes Review of Systems Review of Systems: - CONSTITUTIONAL: Denies weight loss, fever and chills. - HEENT: Denies changes in vision and hearing reports burning pain in his eyes - RESPIRATORY: Reports SOB and denies cough. - CV: Denies palpitations and reports CP. - GI: Denies abdominal pain, nausea, vomiting and diarrhea. - : Denies dysuria and urinary frequency. - MSK: Denies myalgia and joint pain. - SKIN: Denies rash and pruritus. - NEUROLOGICAL: Denies headache and syncope. - PSYCHIATRIC: Denies recent changes in mood. Denies anxiety and depression. All systems reviewed & are unremarkable except as noted in HPI and below Constitutional: Constitutional: Reports fatigue and Reports weakness Neurologic: Reports weakness Endocrine: Endocrine: Reports fatigue PMFSH Past Medical History Medical History Allergy to intravenous contrast Anemia in chronic kidney disease Anxiety Arthritis Bronchitis Congestive heart failure Echocardiogram May 2017 EF of 50% with hypokinetic apical, inferior and basal inferior lateral segment, mild enlargement of left atrium. Coronary artery disease With history of several stents. Followed by [facility]. Deep venous thrombosis Chronic right popliteal DVT. Diabetic peripheral neuropathy Diabetic retinopathy End-stage renal disease on peritoneal dialysis Essential hypertension Fracture left lower ext Gastroesophageal reflux disease Gout Hyperlipidemia Obstructive sleep apnea With inconsistent CPAP use. Paroxysmal atrial fibrillation The patient denies Renal osteodystrophy Secondary hyperparathyroidism of renal origin Seizure X1 with etiology unknown Type 1 diabetes mellitus Onset around age 13. Surgical History Surgical History H/O hernia repair History of anterior cruciate ligament surgery (~2000) Left knee History of appendectomy (~2006) History of arthroscopy of left knee History of bilateral carpal tunnel release Right 05/03/2018. Left 06/02/2018. History of cardiac catheterization 01/21/2021 catheterization at [facility], Dr. Hoover done: Little change from prior catheterization. Patent stents in the RCA and PDA. Previously jailed posterolateral is occluded and development of a 50% stenosis of a branch of om 1. Normal LV function. :August 2019 demonstrated patent stents with 40% stenosis of 1 vessel with no stents or angioplasty performed per patient report. :November 2018 at [facility] - stent x3. :March 2017 demonstrating mild diffuse coronary disease 80% lesion small sub branch of obtuse marginal 1 and 90% stenosis distal RCA into the origin of the PDA w
--- NOTE | 2021-12-09 10:26 | ECHO_ITS ---
Patient Info Name: Juvenal Daigle Age: 51 years : 1970 Gender: Male Ht: 70 in Wt: 297 lbs BSA: 2.64 m2 HR: 63 bpm BP: 146 / 89 mmHg Heart Rhythm: Sinus Rhythm Technical Quality: Poor Exam Date: 12/09/2021 12:58 PM Exam Location: [facility] Pulmonary Exam Room: 213 Patient Status: Inpatient Admit Date: 12/09/2021 Staff Ordering Physician: Aba Flores MD Sap Basis Architect: Ada Crawford RDCS Attending Provider: Santosh Lockwood MD Referring Physician: Sandra WEATHERS; Exam Type: CA echo dop color flow w con Study Info Indications - sob chest pain cad aortic stenosis Complete two-dimensional, color flow and Doppler transthoracic echocardiogram is performed with contrast to opacify the left ventricle and to improve the deliniation of the left ventricle endocardial borders. Contrast/Agitated Saline Contrast/Ag. Saline: Definity Amount: 2.00 ml Administered By: Ada Crawford [facility] Existing IV Access: Yes IV Access Condition: patent with no signs of infiltration Site Condition: No extravasation Reason for Poor Study: patient body habitus Summary 1. Left ventricular chamber dimension is mildly enlarged. 2. Left ventricular systolic function is normal, estimated at >70%. 3. There is mildly increased left ventricular wall thickness. 4. The left ventricular diastolic function is grade I diastolic dysfunction. 5. Left atrial chamber dimension is moderately enlarged. 6. There is mild aortic valve stenosis with a peak velocity of 282.88 cm/s, mean gradient of 20 mmHg, and aortic valve area of 1.71 cm2. Left Ventricle Left ventricular chamber dimension is mildly enlarged. Left ventricular systolic function is normal, estimated at >70%. There is mildly increased left ventricular wall thickness. The left ventricular diastolic function is grade I diastolic dysfunction. Right Ventricle Right ventricular chamber dimension is normal. Right ventricular systolic function is normal. Left Atria Left atrial chamber dimension is moderately enlarged. Right Atria Right atrial chamber dimension is mildly enlarged. Aortic Valve The aortic valve is not well visualized. There is mild aortic valve stenosis with a peak velocity of 282.88 cm/s, mean gradient of 20 mmHg, and aortic valve area of 1.71 cm2. There is no aortic valve regurgitation. There is moderate aortic valve calcification. Pulmonic Valve The pulmonic valve is not well visualized. Mitral Valve The mitral valve has thickened leaflets. There is trace mitral valve regurgitation. The mitral valve annulus is moderately calcified. Tricuspid Valve The tricuspid valve leaflets are normal. There is trace tricuspid valve regurgitation. No pulmonary hypertension, estimated pulmonary arterial systolic pressure is 27 mmHg. Pericardium/Pleural The pericardium appears normal. There is trivial pericardial effusion. Inferior Vena Cava Normal inferior vena cava with >50% collapse upon inspiration consistent with normal right atrial pressure, 5 mmHg. Aorta The aortic root size at the sinus of Valsalva is normal. There is mild-moderate aortic atherosclerosis. Left Ventricular Outflow Tract Name Value Normal LVOT 2D
[2021-12-09 12:14] LABS: Troponin I 0.021 ng/mL (0.000-0.034)
[2021-12-09 12:18] LABS: Glucose Point of Care > 500 mg/dl (65-105)
[2021-12-09] MEDS: INSULIN ASPART (*BKC) 100 UNITS/ML 30 UNITS SUB-Q (12:51)
[2021-12-09] MEDS: TOBRAMYCIN/DEXAMETHASONE OP 2.5 ML BTL 1 DROP EACH EYE ×3 (12:53→21:11)
[2021-12-09] MEDS: PERFLUTREN LIPID MICROSPHERES 1.5 ML VIAL DILUTED TO 10 ML TOTAL VOLUME IV PUSH (13:30)
--- NOTE | 2021-12-09 13:40 | PM.CNCAR ---
Assessment and Plan Additional Plan 51-year-old man known to have coronary disease with previous interventional revascularization primarily involving the right coronary artery in the past. He enters the hospital with chest pain that is atypical but of course with his history always present some level of concern. Fortunately there is no evidence of acute coronary syndrome despite the symptoms his ECG looks benign in his troponin levels are negative. Furthermore he had a coronary angiogram done less than a year ago by his primary corrections unit supervisor demonstrating no significant coronary lesions save for occlusion of the RPL branch because of jailing this with a distal RCA stent which was deployed previously. He does have some mild aortic stenosis both by physical exam and by echo. This is not clinically significant now but I am sure his P primary corrections unit supervisor is aware of this. From my perspective he can be discharged for follow-up with Dr. Ortega. Abelardo Petit MD [facility] History of Present Illness History of Present Illness Consult date/time: Date of service 12/09/21 13:40 Consult reason: chest pain Reason For Visit: Atypical chest pain, dyspnea Narrative: This is a 51-year-old patient with coronary artery disease who we have seen many times here at [facility] with episodes of chest pain for evaluation/consultation. He receives his cardiovascular care not here but at [facility] both in [place]. He was in his usual state of health when yesterday earlier in the day he noted the onset of some central pressure-like chest discomfort that was [id number] in intensity but did raise concern on his part. He stated that 2 or 3 days before that he had similar pain for about 2-3 hours. He does not notice symptoms when he exerts himself such as walking or climbing stairs he is a gentleman who has chronic medical problems also including end-stage renal disease on dialysis. He therefore does not exert with any real vigorous Power but with his activities of daily living he is not noticing any symptomatology. In the emergency room and since admission his ECG does not show any acute ischemic or injury changes. His troponin levels are normal. This gentleman's history of coronary disease and previous interventions are well detailed in previous notes and will not be reiterated in this note today. Interestingly he did have some atypical symptoms like this last year and underwent stress testing as well as angiography by his primary corrections unit supervisor over [facility]. He was found to have no significant coronary lesions angiographically at that time in January of 2021. His right coronary angiograms did demonstrate occlusion of his RPL branch which is jailed by a previously deployed distal RCA stent. Review of Systems Constitutional: Constitutional: Reports fatigue Eyes: Eyes: Reports no additional eye complaints ENT: Reports system reviewed and no additional complaints, except as documented Cardiovascular: Cardiovascular: Reports as per HPI Respiratory: Respiratory: Reports as per HPI Gastrointestinal: Gastrointestinal: Reports no additional gastrointestinal complaints Musculoskeletal: Musculoskeletal: Reports back pain Integumentary/Breasts: Skin/Breast: Reports system reviewed and no additional complaints, except as docu Endocrine: Endocrine: Reports no additional endocrine complaints Hematologic/Lymphatic: Hematologic/Lymphatic: Reports no additional hematologic/lymphatic complaints Allergic/Immunologic: Allergic/Immunologic: Reports no additional allergic/immunologic complaints PMFSH Past Medical History Medical History Allergy to intravenous contrast Anemia in chronic kidney disease Anxiety Arthritis Bronchitis Congestive heart failure Echocardiogram May 2017 EF of 50% with hypokinetic apical, inferior and basal inferior lateral segment, mild
[2021-12-09] MEDS: cloNIDine HCL 0.2 MG TABLET PO ×2 (14:33→21:10)
[2021-12-09 15:41] LABS: Glucose Point of Care 351 mg/dl (65-105)
[2021-12-09 17:14] LABS: Glucose Point of Care 356 mg/dl (65-105)
[2021-12-09] MEDS: INSULIN ASPART (*BKC) 100 UNITS/ML 15 UNITS SUB-Q (17:37)
[2021-12-09] MEDS: INSULIN ASPART (*BKC) 100 UNITS/ML SUB-Q (17:37)
[2021-12-09 19:59] LABS: Glucose Point of Care 336 mg/dl (65-105)
[2021-12-09] MEDS: ATORVASTATIN 40 MG TABLET 80 MG PO (21:07)
[2021-12-09] MEDS: FAMOTIDINE 20 MG TABLET 40 MG PO (21:10)
[2021-12-09] MEDS: HEPARIN SODIUM 5,000 UNITS/ML VIAL 5000 UNITS SUB-Q (21:10)
[2021-12-10] VITALS (12 sets, daily range): BP systolic 144–162; BP diastolic 49–60; PULSE 54–80; RESP 16–20; TEMP 36.1–37.4; O2SAT 92–99
[2021-12-10] MEDS: hydrALAZINE HCL 50 MG TABLET 100 MG PO ×3 (05:37→19:58)
[2021-12-10] MEDS: cloNIDine HCL 0.2 MG TABLET PO ×3 (05:38→19:58)
[2021-12-10 05:55] LABS: Basophils Percent Auto 0.3 % (0.2-1.2); Eosinophils Percent Auto 0.3 % (0-4.4); Hematocrit 28.5 % (42.0-52.0); Hemoglobin 10.1 g/dL (14.0-18.0); Immature Granulocyte Absolute 0.04 K/mm3 (0.00-0.031); Immature Granulocyte Percent A 0.7 % (0-0.5); Lymphocytes Absolute Auto 1.17 K/mm3 (0.9-3.2); Lymphocytes Percent Auto 19.7 % (18.3-44.2); Mean Corpuscular HGB Conc 35.4 g/dl (32-36); Mean Corpuscular Hemoglobin 32.1 pg (26-34); Mean Corpuscular Volume 90.5 fl (80-100); Mean Platelet Volume 9.9 fl (7.4-10.4); Monocytes Absolute Auto 0.6 K/mm3 (0.1-0.6); Monocytes Percent Auto 10.8 % (2.6-8.5); Neutrophils Absolute Auto 4.1 K/mm3 (1.3-6.7); Neutrophils Percent Auto 68.2 % (45.5-73.1); Platelet Count Result 179 k/mm3 (150-375); Red Blood Count 3.15 M/mm3 (4.6-6.20); Red Cell Distribution Width 12.1 % (11.5-14.5)
[2021-12-10 06:10] LABS: Alanine Aminotransferase 21 U/L (4-50); Albumin Level 3.5 g/dL (3.5-5.1); Alkaline Phosphatase 89 U/L (38-126); Anion Gap 11 mmol/L (8-16); Aspartate Amino Transferase 23 U/L (17-59); Bilirubin,Total 0.5 mg/dL (0.2-1.3); Blood Urea Nitrogen 88 mg/dL (9-20); Calcium 8.1 mg/dL (8.4-10.2); Carbon Dioxide 23 mmol/L (22-30); Chloride 88 mmol/L (98-107); Estimated CRCL calculation 16 ml/min; Estimated Glomerular Filt Rate 9; Glucose 493 mg/dL (65-110); Sodium 122 mmol/L (137-145)
[2021-12-10 08:53] LABS: Glucose Point of Care > 500 mg/dl (65-105)
[2021-12-10] MEDS: PANTOPRAZOLE 40 MG TABLET PO (08:55)
[2021-12-10] MEDS: CALCIUM ACETATE 667 MG TABLET PO ×4 (08:55→19:53)
[2021-12-10] MEDS: calcitrioL 0.25 MCG CAPSULE PO (08:55)
[2021-12-10] MEDS: TOBRAMYCIN/DEXAMETHASONE OP 2.5 ML BTL 1 DROP EACH EYE ×4 (08:55→19:57)
[2021-12-10] MEDS: RANOLAZINE 500 MG TAB.ER.12H PO ×2 (08:55→19:57)
[2021-12-10] MEDS: COLCHICINE 0.6 MG TABLET PO (08:55)
[2021-12-10] MEDS: CLOPIDOGREL BISULFATE 75 MG TABLET PO (08:55)
[2021-12-10] MEDS: metOLazone 5 MG TABLET PO (08:55)
[2021-12-10] MEDS: METOPROLOL TARTRATE 50 MG TAB 100 MG PO ×2 (08:55→19:57)
[2021-12-10] MEDS: FUROSEMIDE 40 MG TABLET 120 MG PO ×2 (08:55→17:41)
[2021-12-10] MEDS: ISOSORBIDE MONONITRATE 30 MG TAB.ER.24H PO (08:56)
[2021-12-10] MEDS: EZETIMIBE 10 MG TABLET PO (08:56)
[2021-12-10] MEDS: ASPIRIN 81 MG CHEWABLE TABLET PO (08:56)
[2021-12-10] MEDS: LORATADINE 10 MG TABLET PO (08:56)
[2021-12-10] MEDS: gemfibroziL 600 MG TABLET PO ×2 (09:06→17:41)
[2021-12-10] MEDS: HEPARIN SODIUM 5,000 UNITS/ML VIAL 5000 UNITS SUB-Q ×2 (09:06→19:55)
[2021-12-10] MEDS: INSULIN GLARGINE (*BKC) 100 UNITS/ML 45 UNITS SUB-Q (09:07)
[2021-12-10] MEDS: INSULIN ASPART (*BKC) 100 UNITS/ML 20 UNITS SUB-Q (09:10)
[2021-12-10] MEDS: INSULIN ASPART (*BKC) 100 UNITS/ML SUB-Q ×3 (09:10→17:41)
[2021-12-10] MEDS: INSULIN ASPART (*BKC) 100 UNITS/ML 30 UNITS SUB-Q ×2 (12:25→17:40)
[2021-12-10 12:26] LABS: Glucose Point of Care > 500 mg/dl (65-105)
--- NOTE | 2021-12-10 14:12 | PM.IMPN ---
Progress Note: A&P Assessment and Plan (1) Atypical chest pain: Code(s): R07.89 - Other chest pain Status: Acute (2) Dyspnea: Code(s): R06.00 - Dyspnea, unspecified Status: Acute (3) CAD (coronary artery disease): Code(s): I25.10 - Atherosclerotic heart disease of [place] coronary artery without angina pectoris Status: Acute (4) Peritoneal dialysis catheter in place: Code(s): Z99.2 - Dependence on renal dialysis Status: Acute (5) Allergy to intravenous contrast: Code(s): Z91.041 - Radiographic dye allergy status Status: Acute (6) Diabetes mellitus with hyperosmolarity without hyperglycemic hyperosmolar nonketotic coma: Code(s): E11.00 - Type 2 diabetes mellitus with hyperosmolarity without nonketotic hyperglycemic-hyperosmolar coma ([facility]) Status: Acute (7) Essential hypertension: Code(s): I10 - Essential (primary) hypertension Status: Chronic (8) Obstructive sleep apnea: Code(s): G47.33 - Obstructive sleep apnea (adult) (pediatric) Status: Acute (9) Congestive heart failure: Code(s): I50.9 - Heart failure, unspecified Status: Acute (10) Anemia in chronic kidney disease: Code(s): N18.9 - Chronic kidney disease, unspecified; D63.1 - Anemia in chronic kidney disease Status: Acute (11) Type 1 diabetes mellitus: Code(s): E10.9 - Type 1 diabetes mellitus without complications Status: Acute (12) History of DVT (deep vein thrombosis): Code(s): Z86.718 - Personal history of other venous thrombosis and embolism Status: Acute (13) Hyperlipidemia: Code(s): E78.5 - Hyperlipidemia, unspecified Status: Chronic Additional Plan # atypical chest pain troponins negative. EKG with no acute ST-T changes. Does have history of coronary artery disease. Cardiology consulted. No further workup recommended per Cardiology. He Received full-dose Lovenox x1 12/09/2021. Chest pain is atypical. Chest x-ray is negative in V/Q scan is negative as well. Lower extremity Dopplers is negative for DVT bilaterally. Will have morphine IV p.r.n. for now. Uremia related chest pain/pericardium is possible. Will continue dialysis as previously ordered. Nephrology is consulted as well. # diabetes mellitus type 1 with hyperglycemia he ran out of his pot for insulin pump. Will switch to Lantus and lispro in adjust his doses needed. He uses 1.7 units per hour ADM to 8:00 p.m. and 5.7 units/hour from 8:00 p.m. to 8:00 a.m.. Totaling about 90 units of basal insulin through his pump. Will further adjust his insulin doses according to this scale and at 34 units of Lantus at bedtime. He received 45 units of Lantus this morning. Continue prandial insulin with 30 units with meals along with sliding scale insulin. Continue to monitor Accu-Cheks and adjust as needed. # history of DVT in the past not on anticoagulation. Lower extremity duplex negative for DVT # coronary artery disease status post stents # allergy to IV contrast # end-stage renal disease on peritoneal dialysis nephrology consulted from the ER. Arrange for peritoneal dialysis during the hospital stay # anemia of chronic disease H&H remains stable # congestive heart failure # obstructive sleep apnea # hypertension # hyperlipidemia # renal osteo dystrophy # DVT prophylaxis received full dose 12/09/2021. Heparin subQ currently on # code status full code Subjective Date/time seen: 12/10/21 14:12 Interval history: Feeling better. Does not have any burning sensation in his eyes anymore today. Some shortness of breath on exertion however improved from yesterday. Denies any cough or fever or chills Review of Systems Review of Systems: All systems reviewed & are unremarkable except as noted in HPI and below Exam Narrative: GENERAL: The patient is well developed, not in acute distress HEENT: Nonicteric sclerae, PERRLA, EOMI. Oropharynx david
--- NOTE | 2021-12-10 15:51 | PM.CNNEP ---
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 4.5 solution will increase his blood sugars. -will follow for ESRD and related needs -sugar control -workup for chest pain as per cardio team -encouraged getting a new CPAP mask -follow-up dialysis needs History of Present Illness Reason for Consult Consult date: 12/10/21 Reason for consult: end stage renal disease Requesting physician: Santosh Lockwood MD Chief Complaint Chief complaint: Atypical chest pain, dyspnea History of Present Illness Narrative: 51-year-old male with type 1 diabetes mellitus end-stage nephropathy. He is on peritoneal dialysis. He does dialysis daily. Recently has run into problems with fluid retention. He has been also having intermittent chest pains. Cardiac and pulmonary workup ongoing. We estimate his ongoing renal failure needs. I was not aware of the patient being admitted although I was notified from the emergency room with a specific question being asked to be over they can get a CT scan of the chest with contrast tomorrow. In order to preserve his renal function I advised against. In the meantime he got a V/Q scan is negative, lower extremity Doppler is negative. He does have a history of sleep apnea and is to be on CPAP but does not regularly use. He has been progressively short of breath as well. He has had increased lower extremity swelling. He does make urine and is on diuretics. Dictaphone Operator is following. He has mild aortic stenosis. He had a cardiac catheterization about a year ago with no significant lesion. In the past he had right coronary artery disease status post PTCI. Echocardiogram done this admission: Summary 1. Left ventricular chamber dimension is mildly enlarged. 2. Left ventricular systolic function is normal, estimated at >70%. 3. There is mildly increased left ventricular wall thickness. 4. The left ventricular diastolic function is grade I diastolic dysfunction. 5. Left atrial chamber dimension is moderately enlarged. 6. There is mild aortic valve stenosis with a peak velocity of 282.88 cm/s, mean gradient of 20 mmHg, and aortic valve area of 1.71 cm2 Pulmonary valerio V/Q scan is negative, venous duplex scans negative. His chest pain is better currently, breathing is at baseline, he has bilateral lower extremity swelling. Review of Systems Review of Systems: All systems reviewed & are unremarkable except as noted in HPI and below [facility] Past Medical History Medical History (Updated 12/10/21 @ 16:04 by Leandro Reyes MD) Allergy to intravenous contrast Anemia in chronic kidney disease Anxiety Arthritis Bronchitis Congestive heart failure Echocardiogram May 2017 EF of 50% with hypokinetic apical, inferior and basal inferior lateral segment, mild enlargement of left atrium. Coronary artery disease With history of several stents. Followed by [facility]. Deep venous thrombosis Chronic right popliteal DVT. Diabetic peripheral neuropathy Diabetic retinopathy End-stage renal disease on peritoneal dialysis ESRD (end stage renal disease) on dialysis Essential hypertension Fracture left lower ext Gastroesophageal reflux disease Gout Hyperlipidemia Obstructive sleep apnea With inconsistent CPAP use. Paroxysmal atrial fibrillation The patient denies Renal osteodys
[2021-12-10 17:10] LABS: Glucose Point of Care 240 mg/dl (65-105)
[2021-12-10] MEDS: ACETAMINOPHEN 325 MG TABLET 650 MG PO (19:52)
[2021-12-10] MEDS: ATORVASTATIN 40 MG TABLET 80 MG PO (19:53)
[2021-12-10] MEDS: FAMOTIDINE 20 MG TABLET 40 MG PO (19:55)
[2021-12-10] MEDS: INSULIN GLARGINE (*BKC) 100 UNITS/ML 34 UNITS SUB-Q (19:56)
[2021-12-10 20:28] LABS: Glucose Point of Care 104 mg/dl (65-105)
[2021-12-10] MEDS: NITROGLYCERIN SL 0.4 MG TABLET SUBLINGUAL ×2 (20:39→20:53)
[2021-12-10 21:17] LABS: Glucose Point of Care 125 mg/dl (65-105)
[2021-12-11] VITALS (7 sets, daily range): BP systolic 148–153; BP diastolic 60–65; PULSE 57–80; RESP 12–20; TEMP 36.7–37.9; O2SAT 92–93
[2021-12-11] MEDS: GLUCOSE ORAL GEL 15 GM OF GLUCSE IN 37.5 GM TUBE PO (02:04)
[2021-12-11 02:40] LABS: Glucose Point of Care 82 mg/dl (65-105)
[2021-12-11 02:40] LABS: Glucose Point of Care 44 mg/dl (65-105)
[2021-12-11] MEDS: hydrALAZINE HCL 50 MG TABLET 100 MG PO ×3 (05:26→19:59)
[2021-12-11] MEDS: cloNIDine HCL 0.2 MG TABLET PO ×3 (05:27→20:00)
[2021-12-11 05:31] LABS: Glucose Point of Care 132 mg/dl (65-105)
--- NOTE | 2021-12-11 05:59 | PC.NURSE ---
Called [facility] in attempt to find out why someone did not come to set up Peritoneal dialysis last night. Dialysis was notified by a nurse in IMU on 12/10/21. Called answering service regarding speaking with someone from dialysis. Supposed to be called back at 0700
[2021-12-11 06:46] LABS: Basophils Percent Auto 0.2 % (0.2-1.2); Eosinophils Absolute Auto 0.2 K/mm3 (0-0.3); Eosinophils Percent Auto 1.8 % (0-4.4); Hematocrit 27.4 % (42.0-52.0); Hemoglobin 9.9 g/dL (14.0-18.0); Immature Granulocyte Absolute 0.04 K/mm3 (0.00-0.031); Immature Granulocyte Percent A 0.5 % (0-0.5); Lymphocytes Absolute Auto 1.81 K/mm3 (0.9-3.2); Lymphocytes Percent Auto 21.6 % (18.3-44.2); Mean Corpuscular HGB Conc 36.1 g/dl (32-36); Mean Corpuscular Hemoglobin 31.2 pg (26-34); Mean Corpuscular Volume 86.4 fl (80-100); Mean Platelet Volume 9.6 fl (7.4-10.4); Monocytes Absolute Auto 0.9 K/mm3 (0.1-0.6); Monocytes Percent Auto 11.2 % (2.6-8.5); Neutrophils Absolute Auto 5.4 K/mm3 (1.3-6.7); Neutrophils Percent Auto 64.7 % (45.5-73.1); Platelet Count Result 209 k/mm3 (150-375); Red Blood Count 3.17 M/mm3 (4.6-6.20); Red Cell Distribution Width 11.9 % (11.5-14.5); White Blood Count 8.4 K/mm3 (4.5-10.0)
[2021-12-11 07:13] LABS: Alanine Aminotransferase 20 U/L (4-50); Albumin Level 3.7 g/dL (3.5-5.1); Alkaline Phosphatase 85 U/L (38-126); Anion Gap 13 mmol/L (8-16); Aspartate Amino Transferase 26 U/L (17-59); Bilirubin,Total 0.4 mg/dL (0.2-1.3); Blood Urea Nitrogen 108 mg/dL (9-20); Carbon Dioxide 26 mmol/L (22-30); Chloride 92 mmol/L (98-107); Estimated CRCL calculation 15 ml/min; Estimated Glomerular Filt Rate 8; Glucose 117 mg/dL (65-110); Magnesium 2.4 mg/dL (1.6-2.3); Potassium 3.3 mmol/L (3.4-5.0); Sodium 131 mmol/L (137-145)
--- NOTE | 2021-12-11 07:21 | PC.NURSE ---
Spoke with dialysis nurse this morning. Says she is not sure what happened but she was not notified. Dialysis nurse said she would be here within the hour to get him hooked up to dialysis and will hook him up tonight as well. She is familiar with the patient.
[2021-12-11 07:29] LABS: Glucose Point of Care 98 mg/dl (65-105)
[2021-12-11] MEDS: FUROSEMIDE 40 MG TABLET 120 MG PO ×2 (08:52→16:19)
[2021-12-11] MEDS: metOLazone 5 MG TABLET PO (08:52)
[2021-12-11] MEDS: LORATADINE 10 MG TABLET PO (08:52)
[2021-12-11] MEDS: PANTOPRAZOLE 40 MG TABLET PO (08:52)
[2021-12-11] MEDS: ISOSORBIDE MONONITRATE 30 MG TAB.ER.24H PO (08:52)
[2021-12-11] MEDS: RANOLAZINE 500 MG TAB.ER.12H PO ×2 (08:53→20:02)
[2021-12-11] MEDS: gemfibroziL 600 MG TABLET PO ×2 (08:53→16:20)
[2021-12-11] MEDS: METOPROLOL TARTRATE 50 MG TAB 100 MG PO ×2 (08:53→20:01)
[2021-12-11] MEDS: ASPIRIN 81 MG CHEWABLE TABLET PO (08:54)
[2021-12-11] MEDS: TOBRAMYCIN/DEXAMETHASONE OP 2.5 ML BTL 1 DROP EACH EYE ×4 (08:54→19:59)
[2021-12-11] MEDS: CALCIUM ACETATE 667 MG TABLET PO ×4 (08:55→20:00)
[2021-12-11] MEDS: calcitrioL 0.25 MCG CAPSULE PO (08:55)
[2021-12-11] MEDS: HEPARIN SODIUM 5,000 UNITS/ML VIAL 5000 UNITS SUB-Q ×2 (08:56→19:58)
[2021-12-11] MEDS: CLOPIDOGREL BISULFATE 75 MG TABLET PO (08:56)
[2021-12-11] MEDS: EZETIMIBE 10 MG TABLET PO (08:56)
--- NOTE | 2021-12-11 09:30 | PM.IMPN ---
Progress Note: A&P Assessment and Plan (1) Atypical chest pain: Code(s): R07.89 - Other chest pain Status: Acute (2) Dyspnea: Code(s): R06.00 - Dyspnea, unspecified Status: Acute (3) CAD (coronary artery disease): Code(s): I25.10 - Atherosclerotic heart disease of [place] coronary artery without angina pectoris Status: Acute (4) Peritoneal dialysis catheter in place: Code(s): Z99.2 - Dependence on renal dialysis Status: Acute (5) Allergy to intravenous contrast: Code(s): Z91.041 - Radiographic dye allergy status Status: Acute (6) Diabetes mellitus with hyperosmolarity without hyperglycemic hyperosmolar nonketotic coma: Code(s): E11.00 - Type 2 diabetes mellitus with hyperosmolarity without nonketotic hyperglycemic-hyperosmolar coma ([facility]) Status: Acute (7) Essential hypertension: Code(s): I10 - Essential (primary) hypertension Status: Chronic (8) Obstructive sleep apnea: Code(s): G47.33 - Obstructive sleep apnea (adult) (pediatric) Status: Acute (9) Congestive heart failure: Code(s): I50.9 - Heart failure, unspecified Status: Acute (10) Anemia in chronic kidney disease: Code(s): N18.9 - Chronic kidney disease, unspecified; D63.1 - Anemia in chronic kidney disease Status: Acute (11) Type 1 diabetes mellitus: Code(s): E10.9 - Type 1 diabetes mellitus without complications Status: Acute (12) History of DVT (deep vein thrombosis): Code(s): Z86.718 - Personal history of other venous thrombosis and embolism Status: Acute (13) Hyperlipidemia: Code(s): E78.5 - Hyperlipidemia, unspecified Status: Chronic Additional Plan # atypical chest pain troponins negative. EKG with no acute ST-T changes. Does have history of coronary artery disease. Cardiology consulted. No further workup recommended per Cardiology. He Received full-dose Lovenox x1 12/09/2021. Chest pain is atypical. Chest x-ray is negative in V/Q scan is negative as well. Lower extremity Dopplers is negative for DVT bilaterally. Will have morphine IV p.r.n. for now. Uremia related chest pain/pericardium is possible. Will continue dialysis as previously ordered. Nephrology is consulted as well. # diabetes mellitus type 1 with hyperglycemia he ran out of his pot for insulin pump. Will switch to Lantus and lispro in adjust his doses needed. He uses 1.7 units per hour ADM to 8:00 p.m. and 5.7 units/hour from 8:00 p.m. to 8:00 a.m.. Totaling about 90 units of basal insulin through his pump. Will further adjust his insulin doses according to this scale and at 34 units of Lantus at bedtime. He received 45 units of Lantus this morning. Continue prandial insulin with 30 units with meals along with sliding scale insulin. Continue to monitor Accu-Cheks and adjust as needed. Hypoglycemic 12/11/2021 to insulin dosing adjusted. monitor Accu-Cheks. His getting his insulin pump started as well # history of DVT in the past not on anticoagulation. Lower extremity duplex negative for DVT # coronary artery disease status post stents # allergy to IV contrast # end-stage renal disease on peritoneal dialysis nephrology consulted from the ER. Arrange for peritoneal dialysis during the hospital stay. Has not happened since past 2 days. He is going to get 1 this afternoon # anemia of chronic disease H&H remains stable # congestive heart failure # obstructive sleep apnea # hypertension # hyperlipidemia # renal osteo dystrophy # DVT prophylaxis received full dose 12/09/2021. Heparin subQ currently on # code status full code Subjective Date/time seen: 12/11/21 09:30 Interval history: Hypoglycemic overnight. He did get his peritoneal dialysis last night either. Lantus this morning on hold. A spike of fever At 4:00 a.m.. otherwise feels okay no new complaints chest pain is better Review of System
[2021-12-11 11:38] LABS: Glucose Point of Care 106 mg/dl (65-105)
[2021-12-11] MEDS: MELOXICAM 7.5 MG TABLET PO (16:20)
[2021-12-11 16:27] LABS: Glucose Point of Care 353 mg/dl (65-105)
[2021-12-11] MEDS: INSULIN ASPART (*BKC) 100 UNITS/ML 30 UNITS SUB-Q (16:32)
[2021-12-11] MEDS: INSULIN ASPART (*BKC) 100 UNITS/ML SUB-Q (16:33)
[2021-12-11] MEDS: INSULIN GLARGINE (*BKC) 100 UNITS/ML 17 UNITS SUB-Q (19:56)
[2021-12-11] MEDS: FAMOTIDINE 20 MG TABLET 40 MG PO (20:00)
[2021-12-11] MEDS: ATORVASTATIN 40 MG TABLET 80 MG PO (20:00)
[2021-12-11 20:26] LABS: Glucose Point of Care 233 mg/dl (65-105)
[2021-12-12] VITALS (8 sets, daily range): BP systolic 137–181; BP diastolic 41–62; PULSE 51–77; RESP 16–18; TEMP 36.4–37.1; O2SAT 95–98
[2021-12-12] MEDS: cloNIDine HCL 0.2 MG TABLET PO ×3 (05:56→21:50)
[2021-12-12] MEDS: hydrALAZINE HCL 50 MG TABLET 100 MG PO ×3 (05:56→21:51)
[2021-12-12 06:17] LABS: Glucose Point of Care 134 mg/dl (65-105)
[2021-12-12 06:25] LABS: Basophils Percent Auto 0.3 % (0.2-1.2); Eosinophils Absolute Auto 0.1 K/mm3 (0-0.3); Eosinophils Percent Auto 2.2 % (0-4.4); Hematocrit 29.3 % (42.0-52.0); Hemoglobin 10.4 g/dL (14.0-18.0); Immature Granulocyte Absolute 0.08 K/mm3 (0.00-0.031); Immature Granulocyte Percent A 1.2 % (0-0.5); Lymphocytes Absolute Auto 1.28 K/mm3 (0.9-3.2); Lymphocytes Percent Auto 19.7 % (18.3-44.2); Mean Corpuscular HGB Conc 35.5 g/dl (32-36); Mean Corpuscular Hemoglobin 31.6 pg (26-34); Mean Corpuscular Volume 89.1 fl (80-100); Mean Platelet Volume 10.2 fl (7.4-10.4); Monocytes Absolute Auto 0.9 K/mm3 (0.1-0.6); Monocytes Percent Auto 13.4 % (2.6-8.5); Neutrophils Absolute Auto 4.1 K/mm3 (1.3-6.7); Neutrophils Percent Auto 63.2 % (45.5-73.1); Platelet Count Result 209 k/mm3 (150-375); Red Blood Count 3.29 M/mm3 (4.6-6.20); Red Cell Distribution Width 12.1 % (11.5-14.5); White Blood Count 6.5 K/mm3 (4.5-10.0)
[2021-12-12 06:44] LABS: Alanine Aminotransferase 19 U/L (4-50); Albumin Level 3.7 g/dL (3.5-5.1); Alkaline Phosphatase 90 U/L (38-126); Anion Gap 12 mmol/L (8-16); Aspartate Amino Transferase 26 U/L (17-59); Bilirubin,Total 0.8 mg/dL (0.2-1.3); Blood Urea Nitrogen 103 mg/dL (9-20); Calcium 8.4 mg/dL (8.4-10.2); Carbon Dioxide 29 mmol/L (22-30); Chloride 94 mmol/L (98-107); Estimated CRCL calculation 16 ml/min; Estimated Glomerular Filt Rate 9; Glucose 130 mg/dL (65-110); Magnesium 2.4 mg/dL (1.6-2.3); Potassium 2.9 mmol/L (3.4-5.0); Sodium 135 mmol/L (137-145)
[2021-12-12 07:44] LABS: Glucose Point of Care 143 mg/dl (65-105)
[2021-12-12] MEDS: HEPARIN SODIUM 5,000 UNITS/ML VIAL 5000 UNITS SUB-Q ×2 (09:03→20:44)
[2021-12-12] MEDS: TOBRAMYCIN/DEXAMETHASONE OP 2.5 ML BTL 1 DROP EACH EYE ×4 (09:04→20:44)
[2021-12-12] MEDS: METOPROLOL TARTRATE 50 MG TAB 100 MG PO ×2 (09:04→20:43)
[2021-12-12] MEDS: EZETIMIBE 10 MG TABLET PO (09:05)
[2021-12-12] MEDS: ISOSORBIDE MONONITRATE 30 MG TAB.ER.24H PO (09:05)
[2021-12-12] MEDS: PANTOPRAZOLE 40 MG TABLET PO (09:05)
[2021-12-12] MEDS: calcitrioL 0.25 MCG CAPSULE PO (09:06)
[2021-12-12] MEDS: FUROSEMIDE 40 MG TABLET 120 MG PO ×2 (09:06→16:41)
[2021-12-12] MEDS: gemfibroziL 600 MG TABLET PO ×2 (09:06→16:43)
[2021-12-12] MEDS: ASPIRIN 81 MG CHEWABLE TABLET PO (09:06)
[2021-12-12] MEDS: CALCIUM ACETATE 667 MG TABLET PO ×4 (09:06→20:43)
[2021-12-12] MEDS: CLOPIDOGREL BISULFATE 75 MG TABLET PO (09:06)
[2021-12-12] MEDS: LORATADINE 10 MG TABLET PO (09:06)
[2021-12-12] MEDS: RANOLAZINE 500 MG TAB.ER.12H PO ×2 (09:07→20:43)
[2021-12-12] MEDS: metOLazone 5 MG TABLET PO (09:07)
[2021-12-12 11:22] LABS: Glucose Point of Care 378 mg/dl (65-105)
[2021-12-12] MEDS: INSULIN ASPART (*BKC) 100 UNITS/ML SUB-Q ×2 (11:35→16:45)
[2021-12-12] MEDS: INSULIN ASPART (*BKC) 100 UNITS/ML 10 UNITS SUB-Q ×2 (11:35→16:46)
--- NOTE | 2021-12-12 13:35 | PM.IMPN ---
Progress Note: A&P Assessment and Plan (1) Atypical chest pain: Code(s): R07.89 - Other chest pain Status: Acute (2) Dyspnea: Code(s): R06.00 - Dyspnea, unspecified Status: Acute (3) CAD (coronary artery disease): Code(s): I25.10 - Atherosclerotic heart disease of [place] coronary artery without angina pectoris Status: Acute (4) Peritoneal dialysis catheter in place: Code(s): Z99.2 - Dependence on renal dialysis Status: Acute (5) Allergy to intravenous contrast: Code(s): Z91.041 - Radiographic dye allergy status Status: Acute (6) Diabetes mellitus with hyperosmolarity without hyperglycemic hyperosmolar nonketotic coma: Code(s): E11.00 - Type 2 diabetes mellitus with hyperosmolarity without nonketotic hyperglycemic-hyperosmolar coma ([facility]) Status: Acute (7) Essential hypertension: Code(s): I10 - Essential (primary) hypertension Status: Chronic (8) Obstructive sleep apnea: Code(s): G47.33 - Obstructive sleep apnea (adult) (pediatric) Status: Acute (9) Congestive heart failure: Code(s): I50.9 - Heart failure, unspecified Status: Acute (10) Anemia in chronic kidney disease: Code(s): N18.9 - Chronic kidney disease, unspecified; D63.1 - Anemia in chronic kidney disease Status: Acute (11) Type 1 diabetes mellitus: Code(s): E10.9 - Type 1 diabetes mellitus without complications Status: Acute (12) History of DVT (deep vein thrombosis): Code(s): Z86.718 - Personal history of other venous thrombosis and embolism Status: Acute (13) Hyperlipidemia: Code(s): E78.5 - Hyperlipidemia, unspecified Status: Chronic Additional Plan # atypical chest pain troponins negative. EKG with no acute ST-T changes. Does have history of coronary artery disease. Cardiology consulted. No further workup recommended per Cardiology. He Received full-dose Lovenox x1 12/09/2021. Chest pain is atypical. Chest x-ray is negative in V/Q scan is negative as well. Lower extremity Dopplers is negative for DVT bilaterally. Will have morphine IV p.r.n. for now. Uremia related chest pain/pericardium is possible. Will continue dialysis as previously ordered. Nephrology is consulted as well. # diabetes mellitus type 1 with hyperglycemia he ran out of his pot for insulin pump. Will switch to Lantus and lispro in adjust his doses needed. He uses 1.7 units per hour ADM to 8:00 p.m. and 5.7 units/hour from 8:00 p.m. to 8:00 a.m.. Totaling about 90 units of basal insulin through his pump. Will further adjust his insulin doses according to this scale and at 34 units of Lantus at bedtime. He received 45 units of Lantus this morning. Continue prandial insulin with 30 units with meals along with sliding scale insulin. Continue to monitor Accu-Cheks and adjust as needed. Hypoglycemic 12/11/2021 to insulin dosing adjusted. monitor Accu-Cheks. His getting his insulin pump started as well Blood sugar reviewed. He has insulin pump was restart insulin from from this evening he got Lantus last evening # history of DVT in the past not on anticoagulation. Lower extremity duplex negative for DVT # coronary artery disease status post stents # allergy to IV contrast # end-stage renal disease on peritoneal dialysis nephrology consulted from the ER. Arrange for peritoneal dialysis during the hospital stay. Has not happened since past 2 days. He received his peritoneal dialysis last evening. Is scheduled to get nightly peritoneal dialysis continue per on car supervisor # anemia of chronic disease H&H remains stable # congestive heart failure # obstructive sleep apnea # hypertension # hyperlipidemia # renal osteo dystrophy # DVT prophylaxis received full dose 12/09/2021. Heparin subQ currently on # code status full code If blood sugar stable will plan to discharge home tomorrow Subjective Date/ti
[2021-12-12 16:23] LABS: Glucose Point of Care 368 mg/dl (65-105)
[2021-12-12] MEDS: ATORVASTATIN 40 MG TABLET 80 MG PO (20:42)
[2021-12-12] MEDS: FAMOTIDINE 20 MG TABLET 40 MG PO (20:44)
[2021-12-12 20:58] LABS: Glucose Point of Care 393 mg/dl (65-105)
[2021-12-12] MEDS: INSULIN GLARGINE (*BKC) 100 UNITS/ML 17 UNITS SUB-Q (21:01)
--- NOTE | 2021-12-12 21:07 | PC.NURSE ---
Pt has reattached his insulin pump after his b/g reading of 393 on [facility] machine. Pt states that he will be bolused 10.9 units.
[2021-12-13 04:23] VITALS: BP 168/44; PULSE 52; RESP 20; TEMP 36.6; O2SAT 98
[2021-12-13 05:38] LABS: Glucose Point of Care 43 mg/dl (65-105)
[2021-12-13] MEDS: hydrALAZINE HCL 50 MG TABLET 100 MG PO (05:45)
[2021-12-13] MEDS: cloNIDine HCL 0.2 MG TABLET PO (05:46)
[2021-12-13 05:50] LABS: Basophils Percent Auto 0.4 % (0.2-1.2); Eosinophils Absolute Auto 0.2 K/mm3 (0-0.3); Eosinophils Percent Auto 4.2 % (0-4.4); Hematocrit 28.6 % (42.0-52.0); Hemoglobin 10.5 g/dL (14.0-18.0); Immature Granulocyte Absolute 0.05 K/mm3 (0.00-0.031); Immature Granulocyte Percent A 0.9 % (0-0.5); Lymphocytes Absolute Auto 1.15 K/mm3 (0.9-3.2); Lymphocytes Percent Auto 21.8 % (18.3-44.2); Mean Corpuscular HGB Conc 36.7 g/dl (32-36); Mean Corpuscular Hemoglobin 31.8 pg (26-34); Mean Corpuscular Volume 86.7 fl (80-100); Mean Platelet Volume 9.9 fl (7.4-10.4); Monocytes Absolute Auto 0.7 K/mm3 (0.1-0.6); Monocytes Percent Auto 13.9 % (2.6-8.5); Neutrophils Absolute Auto 3.1 K/mm3 (1.3-6.7); Neutrophils Percent Auto 58.8 % (45.5-73.1); Platelet Count Result 207 k/mm3 (150-375); Red Cell Distribution Width 11.9 % (11.5-14.5); White Blood Count 5.3 K/mm3 (4.5-10.0)
[2021-12-13 06:16] LABS: Alanine Aminotransferase 20 U/L (4-50); Albumin Level 3.6 g/dL (3.5-5.1); Alkaline Phosphatase 94 U/L (38-126); Anion Gap 10 mmol/L (8-16); Aspartate Amino Transferase 27 U/L (17-59); Bilirubin,Total 0.7 mg/dL (0.2-1.3); Blood Urea Nitrogen 93 mg/dL (9-20); Calcium 8.7 mg/dL (8.4-10.2); Carbon Dioxide 34 mmol/L (22-30); Chloride 92 mmol/L (98-107); Estimated CRCL calculation 16 ml/min; Estimated Glomerular Filt Rate 9; Glucose 49 mg/dL (65-110); Magnesium 2.4 mg/dL (1.6-2.3); Potassium 2.8 mmol/L (3.4-5.0); Sodium 136 mmol/L (137-145)
[2021-12-13 06:28] LABS: Glucose Point of Care 155 mg/dl (65-105)
[2021-12-13] MEDS: POTASSIUM CHLORIDE 20 MEQ PACKET (FOR LIQUID) 40 MEQ PO (06:28)
--- NOTE | 2021-12-13 06:42 | PC.NURSE ---
Pt's blood glucose is 43 on POC check d/t pt request. Pt is then given juice, crackers, peanut butter, apple sauce and pudding to eat. pt's recheck b/g is 155. Dr. Reed is informed of critical glucose and potassium levels.
[2021-12-13 07:23] VITALS: BP 168/44; PULSE 52; RESP 20; TEMP 36.6
[2021-12-13 07:44] LABS: Glucose Point of Care 135 mg/dl (65-105)
[2021-12-13 08:50] VITALS: PULSE 54
[2021-12-13] MEDS: METOPROLOL TARTRATE 50 MG TAB 100 MG PO (08:50)
[2021-12-13] MEDS: COLCHICINE 0.6 MG TABLET PO (08:50)
[2021-12-13] MEDS: ASPIRIN 81 MG CHEWABLE TABLET PO (08:50)
[2021-12-13] MEDS: CALCIUM ACETATE 667 MG TABLET PO (08:50)
[2021-12-13] MEDS: gemfibroziL 600 MG TABLET PO (08:51)
[2021-12-13] MEDS: ISOSORBIDE MONONITRATE 30 MG TAB.ER.24H PO (08:51)
[2021-12-13] MEDS: MELOXICAM 7.5 MG TABLET PO (08:51)
[2021-12-13] MEDS: ERGOCALCIFEROL 50,000 UNIT CAPSULE 50000 UNITS PO (08:51)
[2021-12-13] MEDS: calcitrioL 0.25 MCG CAPSULE PO (08:51)
[2021-12-13] MEDS: LORATADINE 10 MG TABLET PO (08:52)
[2021-12-13] MEDS: FUROSEMIDE 40 MG TABLET 120 MG PO (08:52)
[2021-12-13] MEDS: CLOPIDOGREL BISULFATE 75 MG TABLET PO (08:52)
[2021-12-13] MEDS: PANTOPRAZOLE 40 MG TABLET PO (08:52)
[2021-12-13] MEDS: metOLazone 5 MG TABLET PO (08:52)
[2021-12-13] MEDS: RANOLAZINE 500 MG TAB.ER.12H PO (08:52)
[2021-12-13] MEDS: EZETIMIBE 10 MG TABLET PO (08:53)
[2021-12-13] MEDS: HEPARIN SODIUM 5,000 UNITS/ML VIAL 5000 UNITS SUB-Q (08:53)
[2021-12-13] MEDS: TOBRAMYCIN/DEXAMETHASONE OP 2.5 ML BTL 1 DROP EACH EYE (08:53)
[2021-12-13 11:50] LABS: Glucose Point of Care 308 mg/dl (65-105)
--- NOTE | 2021-12-13 12:27 | PM.DS ---
DS: Admitting Diagnosis Discharge Date 12/13/2021 Admitting Diagnosis Chest pain shortness of breath DS: Discharge Diagnosis Discharge Diagnosis (1) Atypical chest pain: Code(s): R07.89 - Other chest pain Status: Acute (2) Dyspnea: Code(s): R06.00 - Dyspnea, unspecified Status: Acute (3) CAD (coronary artery disease): Code(s): I25.10 - Atherosclerotic heart disease of [place] coronary artery without angina pectoris Status: Acute (4) Peritoneal dialysis catheter in place: Code(s): Z99.2 - Dependence on renal dialysis Status: Acute (5) Allergy to intravenous contrast: Code(s): Z91.041 - Radiographic dye allergy status Status: Acute (6) Diabetes mellitus with hyperosmolarity without hyperglycemic hyperosmolar nonketotic coma: Code(s): E11.00 - Type 2 diabetes mellitus with hyperosmolarity without nonketotic hyperglycemic-hyperosmolar coma ([facility]) Status: Acute (7) Essential hypertension: Code(s): I10 - Essential (primary) hypertension Status: Chronic (8) Obstructive sleep apnea: Code(s): G47.33 - Obstructive sleep apnea (adult) (pediatric) Status: Acute (9) Congestive heart failure: Code(s): I50.9 - Heart failure, unspecified Status: Acute (10) Anemia in chronic kidney disease: Code(s): N18.9 - Chronic kidney disease, unspecified; D63.1 - Anemia in chronic kidney disease Status: Acute (11) Type 1 diabetes mellitus: Code(s): E10.9 - Type 1 diabetes mellitus without complications Status: Acute (12) History of DVT (deep vein thrombosis): Code(s): Z86.718 - Personal history of other venous thrombosis and embolism Status: Acute (13) Hyperlipidemia: Code(s): E78.5 - Hyperlipidemia, unspecified Status: Chronic DS: Summary Hospital Course Hospital Course: 51-year-old male presents with chest pain and shortness of breath on exertion. # atypical chest pain troponin negative. EKG with no acute ST-T changes. He Does have history of coronary artery disease. Cardiology consulted. No further workup recommended per Cardiology. He Received full-dose Lovenox x1 12/09/2021. Chest pain is atypical. Chest x-ray is negative in V/Q scan is negative as well. Lower extremity Dopplers is negative for DVT bilaterally. Patient treated conservatively. Uremia related chest pain/pericardium is possible. Continued on peritoneal and dialysis as previously ordered. Nephrology is consulted as well. Chest pain shortness a bit resolved and improved during the hospital stay. # diabetes mellitus type 1 with hyperglycemia he ran out of his pod for insulin pump. He was switched to Lantus and lispro while during his hospital stay. Initially his blood sugar was running in 500s for which adjustment of the insulin dosing was made. She was eventually switched to insulin pump during the hospital stay. He will continue insulin pump as previously prescribed # history of DVT in the past not on anticoagulation. Lower extremity duplex negative for DVT # coronary artery disease status post stents # allergy to IV contrast # end-stage renal disease on peritoneal dialysis nephrology consulted from the ER. He was arranged for peritoneal dialysis during the hospital stay. # anemia of chronic disease H&H remains stable # congestive heart failure # obstructive sleep apnea # hypertension # hyperlipidemia # renal osteo dystrophy # DVT prophylaxis received full dose 12/09/2021. Heparin subQ currently on # code status full code Time Spent with Patient Time attestation: Total time spent providing and/or coordinating discharge services:45 mins Exam Narrative: GENERAL: The patient is well developed, not in acute distress HEENT: Nonicteric sclerae, PERRLA, EOMI. Oropharynx clear. Moist mucous membranes. Conjunctivae appear well perfused. CHEST: Chest wall is nontender. HEART: Regul
== END 2021-12-13 13:14 | disposition home or self-care (01) | DRG 313 ==
LOC: ANHED 12-09 05:36 → ANHIMU 12-09 05:50 → ANH2MED 12-10 17:48
PROVIDERS: Admitting Provider Internal Medicine; Emergency Provider Emergency Medicine; PCP Family Medicine; Visit Provider Internal Medicine
DX: R07.89 Other chest pain (principal); N18.6 End stage renal disease; I13.2 Hypertensive heart and chronic kidney disease with heart failure and with stage 5 chronic kidney disease, or end stage renal disease; N25.81 Secondary hyperparathyroidism of renal origin; I50.9 Heart failure, unspecified; E10.22 Type 1 diabetes mellitus with diabetic chronic kidney disease; D63.1 Anemia in chronic kidney disease; N25.0 Renal osteodystrophy; E10.649 Type 1 diabetes mellitus with hypoglycemia without coma; I25.10 Atherosclerotic heart disease of native coronary artery without angina pectoris; G47.33 Obstructive sleep apnea (adult) (pediatric); E78.5 Hyperlipidemia, unspecified; M19.90 Unspecified osteoarthritis, unspecified site; F41.9 Anxiety disorder, unspecified; E10.42 Type 1 diabetes mellitus with diabetic polyneuropathy; E10.319 Type 1 diabetes mellitus with unspecified diabetic retinopathy without macular edema; E10.21 Type 1 diabetes mellitus with diabetic nephropathy; Z20.822 Contact with and (suspected) exposure to COVID-19; I48.0 Paroxysmal atrial fibrillation; K21.9 Gastro-esophageal reflux disease without esophagitis; M10.9 Gout, unspecified; Z99.2 Dependence on renal dialysis; Z86.718 Personal history of other venous thrombosis and embolism; Z95.5 Presence of coronary angioplasty implant and graft; Z90.49 Acquired absence of other specified parts of digestive tract; Z98.49 Cataract extraction status, unspecified eye; Z96.1 Presence of intraocular lens; Z79.82 Long term (current) use of aspirin; Z91.041 Radiographic dye allergy status
CPT/HCPCS: 36415; 71045; 78580; 80053; 82948; 83735; 83880; 84484; 85025; 85380; 85610; 85730; 87040; 87804; 90945; 93005; 93970; 94640; 96372; 96374; 96375; 96376; 99285; A9270; A9540; C8929; C9803; G0378; J1644; J1650; J1815; J2270; J7512; Q9957; U0003; U0005

== ENCOUNTER 2022-01-31 08:09 | Outpatient (CLI) | payer MEDICARE, MEDICAID, SELFPAY ==
--- NOTE | 2022-02-22 18:48 | WPDSLEEPSTUD ---
Sleep Study Date of Study: 01/31/22 Ordering Provider: Amira Nevarez MD Interpreting Physician: Stephie Jones DO Sleep Study Type: Split Polysomnogram Height: 1.78 m Weight: 131.542 kg Body Mass Index: 41.5 Neck Circumference (inches): 21 [place]: 16 Reason for Sleep Study Previously diagnosed BEN. No longer using CPAP. Sleep History The patient is a 51-year-old male with coronary artery disease with 4 stents, congestive heart failure, hypertension, end-stage renal disease, type 1 diabetes, GERD, gout, hyperlipidemia, paroxysmal atrial fibrillation, anxiety and previously diagnosed sleep apnea that had a sleep study ordered by his engineering scientist to requalify for PAP therapy. The patient rarely awakens from sleep short of breath. He constantly awakens at night with heartburn, belching or cough. He constantly snores loud enough that others complain. He occasionally has trouble sleeping when he has a cold. He denies waking up gasping for air throughout the night. He occasionally has breathing problems at night observed by himself or others. He rarely sweats excessively at night. He denies having heart palpitations or irregular heartbeats during the night. He constantly falls asleep during the day but never while driving. He denies sleep paralysis and cataplexy. He denies having trouble at school or work due to sleepiness. He constantly experiences vivid dreamlike scenes upon awakening or falling asleep. He occasionally feels afraid of going to sleep. He rarely has nightmares. He constantly remembers his dreams. He frequently has thoughts racing through his mind. He occasionally feels sad or depressed and frequently has anxiety. He constantly has muscular tension. He occasionally notices parts of his body jerk. He denies kicking during the night. He denies having crawling and aching feelings in his legs and frequently has leg pain during the night. He denies grinding his teeth during sleep awakening with morning jaw pain. He is constantly bothered by pain during the day and frequently awakened by pain during the night. He constantly wakes up feeling stiff in the morning. He frequently wakes up with sore achy muscles. He constantly wakes up with pain in his neck and spine joints. He goes to bed between 10-11 p.m. on weekdays and between midnight to 2:00 a.m. on the weekends. It takes him 10 minutes to fall asleep. He wakes up 2-3 times throughout the night to urinate and get a drink of water. He is able to fall back asleep within 10-30 minutes. He wakes up at 7:00 a.m. on weekdays and between 10-11 a.m. on the weekends. He typically gets 5 hours of sleep per night. He will stay in bed for 1-1/2-2 hours after waking up in the morning. He currently lives with his 2 children. He does not consume any caffeinated beverages within 2 hours of bedtime. He does not engage in physical exercise before bedtime. He will watch television before falling asleep. He will take naps in the afternoon or the evening but they are not refreshing. He drinks 2-3 caffeinated beverages per day. He denies tobacco, alcohol recreational drug use. FORMERLY [facility] Past Medical History Medical History Allergy to intravenous contrast Anemia in chronic kidney disease Angina pectoris, unspecified Anxiety Arthritis Bronchitis Congestive heart failure Echocardiogram May 2017 EF of 50% with hypokinetic apical, inferior and basal inferior lateral segment, mild enlargement of left atrium. Coronary artery disease With history of several stents. Followed by [facility]. Deep venous thrombosis Chronic right popliteal DVT. Diabetes mellitus with hyperosmolarity without hyperglycemic hyperosmolar nonketotic coma Diabetic peripheral neuropathy Diabetic retinopathy End-stage renal disease on peritoneal dialysis ESRD (end stage renal disease) on dialysis Essential hypertension Fractur
[2022-02-22 23:13] VITALS: BMI 41.5
== END 2022-02-01 06:04 | disposition home or self-care (01) ==
LOC: ANHCSM 08:16
PROVIDERS: PCP Family Medicine; Visit Provider Internal Medicine Critical Care Medicine
DX: G47.19 Other hypersomnia (principal); G47.33 Obstructive sleep apnea (adult) (pediatric)
CPT/HCPCS: 95811

== ENCOUNTER 2022-03-09 08:54 | Outpatient (CLI) | payer MEDICARE, MEDICAID, SELFPAY | END 2022-03-09 08:55 | disposition home or self-care (01) | LOC: ANHAUDIO 08:55 | PROVIDERS: PCP Family Medicine; Visit Provider Otolaryngology | DX: H90.3 Sensorineural hearing loss, bilateral (principal) | CPT/HCPCS: 92557; 92567 ==

== ENCOUNTER 2022-03-09 14:26 | Outpatient (CLI) | payer MEDICARE, MEDICAID, SELFPAY ==
--- NOTE | ~2022-03-09 | XR_ITS ---
MODIFIED ESOPHAGRAM HISTORY: Dysphagia. TECHNIQUE: Modified barium esophagram was performed by speech pathologist under radiologist fluorosco pic guidance. This was recorded on tape. The exam was reviewed on 03/09/2022 15:24 CDT. The DAP for this procedure was 1.7 Gycm2. Fluoroscopy time is 1.3 minutes. FINDINGS: Lateral projection of the cervical spine demonstrates normal alignment. There is normal s wallowing function without evidence for aspiration or penetration.. IMPRESSION: 1: Normal swallowing function without penetration or aspiration. 2: Please refer to speech pathologist report for additional detail. Reviewed, dictated and finalized at location A.
--- NOTE | 2022-03-10 16:12 | STOPEVAL ---
MODIFIED BARIUM SWALLOW EVALUATION: Thank you for referring Juvenal Michael Daigle Jr. to [facility].? Attending Provider: Rohit Jessica MD Referring Provider: Modified Barium Swallow Evaluation Recent Swallowing History Reports Dysphagia Yes: has sensation of a knot in throat; feels like food won 't go down Duration of Dysphagia 10 years History of Pneumonia No Reported Difficult Consistencies Unable to Identify Intake Method Prior to Swallow Oral Evaluation Diet Prior to Swallow Evaluation Regular, Level 7 Liquid Consistency Prior to Swallow Thin (0) Evaluation Consistency Solid Consistency Method of Presentation Spoon Oral Preparatory Symptoms None Oral Phase Symptoms None Pharyngeal Phase Symptoms None Severity of Vallecular Residue None - 0% No Residue Severity of Pyriform Sinus Residue None - 0% No Residue 8 Point Laryngeal Penetration-Aspiration Material Does Not Enter Airway Scale Cervical/Esophageal Symptoms None Mixed Consistency Method of Presentation Spoon Oral Preparatory Symptoms None Oral Phase Symptoms None Pharyngeal Phase Symptoms None Severity of Vallecular Residue None - 0% No Residue Severity of Pyriform Sinus Residue None - 0% No Residue 8 Point Laryngeal Penetration-Aspiration Material Does Not Enter Airway Scale Cervical/Esophageal Symptoms None Pureed Consistency Method of Presentation Spoon Oral Preparatory Symptoms None Oral Phase Symptoms None Pharyngeal Phase Symptoms None Severity of Vallecular Residue None - 0% No Residue Severity of Pyriform Sinus Residue None - 0% No Residue 8 Point Laryngeal Penetration-Aspiration Material Does Not Enter Airway Scale Cervical/Esophageal Symptoms None Thin Uncontrolled 2 Method of Presentation Straw Oral Preparatory Symptoms None Oral Phase Symptoms None Pharyngeal Phase Symptoms None Severity of Vallecular Residue None - 0% No Residue Severity of Pyriform Sinus Residue None - 0% No Residue 8 Point Laryngeal Penetration-Aspiration Material Does Not Enter Airway Scale Cervical/Esophageal Symptoms None Thin Uncontrolled 1 Method of Presentation Cup Oral Preparatory Symptoms None Oral Phase Symptoms None Pharyngeal Phase Symptoms None Severity of Vallecular Residue None - 0% No Residue Severity of Pyriform Sinus Residue None - 0% No Residue 8 Point Laryngeal Penetration-Aspiration Material Does Not Enter Airway Scale Cervical/Esophageal Symptoms None Thin 5 mL Method of Presentation Spoon Oral Preparatory Symptoms None Oral Phase Sym
== END 2022-03-09 14:27 | disposition home or self-care (01) ==
PROVIDERS: PCP Family Medicine; Visit Provider Otolaryngology
DX: R13.10 Dysphagia, unspecified (principal)
CPT/HCPCS: 92557; 92567; 92611

== ENCOUNTER 2022-06-02 16:00 | Inpatient (IN) | payer MEDICARE, MEDICAID, SELFPAY ==
--- NOTE | ~2022-06-02 | US_ITS ---
EXAMINATION: US venous doppler [facility] DATE: 06/04/2022 10:28 INDICATION: Lower limb edema. TECHNIQUE: Grayscale ultrasound images without and with compression and Doppler ultrasound images of the bilateral lower extremity veins were obtained. COMPARISON: Ultrasound 12/09/2021 FINDINGS: The visualized portions of right common femoral vein, profunda (deep) femoral vein, femoral vein, pop liteal vein, peroneal veins, and posterior tibial veins are patent. The visualized portions of left common femoral vein, profunda femoral vein, femoral vein, popliteal v ein, peroneal veins, and posterior tibial veins are patent. IMPRESSION: 1. No deep venous thrombosis. Reviewed, dictated and finalized at location A.
--- NOTE | ~2022-06-02 | XR_ITS ---
XR chest 2V 06/02/2022 16:42 Indication: Chest pressure Procedure: 2 view chest Comparison: Comparison to multiple prior studies sequentially, with oldest reviewed study dated 11/2020. Findings: Heart size is normal. There is left basilar atelectasis/scarring. No focal pneumonia, edema , pleural effusion or pneumothorax. Impression: 1: Left basilar atelectasis/scarring. Reviewed, dictated and finalized at location A. Impression: 1: Left basilar atelectasis/scarring.
--- NOTE | ~2022-06-02 | CT_ITS ---
EXAMINATION: CT abdomen pelvis wo con DATE: 06/02/2022 18:20 INDICATION: Abdominal pain and diarrhea TECHNIQUE: Computed tomography (CT) of the abdomen and pelvis was performed without intravenous contr ast. The dose-length product (DLP) was 1544.94 mGy-cm. Automated exposure control and iterative recon struction technique were employed. COMPARISON: 01/11/2021 FINDINGS: There are airspace opacities in the lingula and lower lobes, left greater than right. A sma ll right pleural effusion is present. The liver, spleen, pancreas, and adrenal glands are normal. Sto grant are present in the gallbladder which is mildly distended. There is mild atrophy of the kidneys. A peritoneal dialysis catheter coils in the left midabdomen. There is a small volume of ascites. There is no free intraperitoneal gas or evidence of bowel obstruction. No pathologically enlarged abdomina l or pelvic lymph nodes are identified. There is calcified atherosclerosis of the aorta and many of t he other arteries. There is moderate lumbar spondylosis. There is chronic fluid in the anterior abdom inal wall near the umbilicus. IMPRESSION: 1. Cholelithiasis with mild gallbladder distention. Correlate for right upper quadrant pain 2. Airspace opacities of the lingula and lower lobes, likely pneumonia. Reviewed, dictated and finalized at location F. IMPRESSION: 1. Cholelithiasis with mild gallbladder distention. Correlate for right upper q uadrant pain 2. Airspace opacities of the lingula and lower lobes, likely pneumonia.
--- NOTE | ~2022-06-02 | US_ITS ---
EXAMINATION: US right upper quadrant DATE: 06/03/2022 09:48 INDICATION: Cholelithiasis. TECHNIQUE: Multiple grayscale and Doppler ultrasound images of the abdomen were obtained. COMPARISON: CT abdomen and pelvis 06/02/2022 FINDINGS: The pancreas is obscured by bowel gas. The liver is normal without focal lesion. The gallbl adder is distended and contains sludge and stones. Gallbladder wall thickening is noted. There is no sonographic Jade sign. The common duct is normal and measures 6 mm. There is normal flow in main po rtal vein. There is a small volume of perihepatic ascites. IMPRESSION: 1. Distended gallbladder with gallstones and gallbladder wall thickening, but no sonographic Jade s ign. These findings are indeterminate for acute cholecystitis. Consider hepatobiliary scintigraphy. 2. Small volume of perihepatic ascites. Reviewed, dictated and finalized at location A. IMPRESSION: 1. Distended gallbladder with gallstones and gallbladder wall thickening, but n o sonographic Jade sign. These findings are indeterminate for acute cholecyst itis. Consider hepatobiliary scintigraphy. 2. Small volume of perihepatic ascites.
[2022-06-02 16:03] VITALS: BP 186/53; PULSE 79; RESP 20; TEMP 37.3; O2SAT 97
--- NOTE | 2022-06-02 16:07 | ECG_ITS ---
Measurements Intervals [place] Rate: 76 P: 53 ME: 204 QRS: -44 QRSD: 117 T: 90 QT: 345 QTc: 389 Interpretive Statements SINUS RHYTHM MARKED LEFT AXIS DEVIATION [QRS AXIS < -30] LEFT VENTRICULAR HYPERTROPHY AND ST-T CHANGE [VOLTAGE CRITERIA PLUS ST/T ABNORMALITY] POOR R-WAVE PROGRESSION, POSIBLEOLD ANTERIOR SC COMPARED TO ECG 12/09/2021 09:02:35 LEFT-AXIS DEVIATION NOW PRESENT Electronically Signed On 06-02-2022 18:41:05 CDT by Cyndi Nielson M.D.
[2022-06-02 16:27] LABS: Basophils Percent Auto 0.3 % (0.2-1.2); Eosinophils Absolute Auto 0.1 K/mm3 (0-0.3); Eosinophils Percent Auto 1.3 % (0-4.4); Hematocrit 32.5 % (42.0-52.0); Hemoglobin 11.2 g/dL (14.0-18.0); Immature Granulocyte Absolute 0.02 K/mm3 (0.00-0.031); Immature Granulocyte Percent A 0.3 % (0-0.5); Lymphocytes Absolute Auto 0.79 K/mm3 (0.9-3.2); Mean Corpuscular HGB Conc 34.5 g/dl (32-36); Mean Corpuscular Hemoglobin 31.5 pg (26-34); Mean Corpuscular Volume 91.5 fl (80-100); Mean Platelet Volume 9.6 fl (7.4-10.4); Monocytes Absolute Auto 0.7 K/mm3 (0.1-0.6); Monocytes Percent Auto 12.2 % (2.6-8.5); Neutrophils Absolute Auto 4.4 K/mm3 (1.3-6.7); Neutrophils Percent Auto 72.9 % (45.5-73.1); Platelet Count Result 206 k/mm3 (150-375); Red Blood Count 3.55 M/mm3 (4.6-6.20); Red Cell Distribution Width 13.1 % (11.5-14.5); White Blood Count 6.1 K/mm3 (4.5-10.0)
[2022-06-02 16:37] LABS: Prothrombin Time 12.9 Seconds (11.1-14.7)
[2022-06-02 16:38] LABS: Partial Thromboplastin Time 33.5 SECONDS (22.3-36.8)
[2022-06-02 16:40] LABS: Alanine Aminotransferase 33 U/L (6-50); Albumin Level 3.8 g/dL (3.5-5.1); Alkaline Phosphatase 105 U/L (38-126); Anion Gap 9 mmol/L (8-16); Aspartate Amino Transferase 29 U/L (17-59); Bilirubin,Total 1.3 mg/dL (0.2-1.3); Blood Urea Nitrogen 55 mg/dL (9-20); Calcium 8.6 mg/dL (8.4-10.2); Carbon Dioxide 28 mmol/L (22-30); Chloride 99 mmol/L (98-107); Estimated CRCL calculation 19 ml/min; Estimated Glomerular Filt Rate 10; Glucose 119 mg/dL (65-110); Sodium 136 mmol/L (137-145)
[2022-06-02 16:55] LABS: NT Pro B Type Natriuretic Pept 10300 pg/mL (5-100)
--- NOTE | 2022-06-02 17:14 | ED.URI ---
HPI - URI/Sore Throat General Chief Complaint: Upper Respiratory Infection <Kerry Lujan PA-C - Last Filed: 06/02/22 22:05> Stated Complaint: chest pressure, nausea <Kerry Lujan PA-C - Last Filed: 06/02/22 22:05> Time Seen by Provider: 06/02/22 16:59 <Kerry Ljuan PA-C - Last Filed: 06/02/22 22:05> History of Present Illness HPI Narrative: Patient is a 51-year-old male with a history of CKD on peritoneal dialysis, ACS status post RCA stenting(feb 08), CHF, type 1 diabetes, here for evaluation of generalized weakness for the past 3 days. Patient states that he has felt unwell about 3 days ago. He has been experiencing episodes of diarrhea nearly every 15 minutes, decreased appetite, chills, feeling short of breath with any movement in addition to a nonproductive cough. Today he began to feel nauseated and had several episodes of vomiting. Has a diffuse abdominal pain that he has never experienced before. He also had an episode of chest pressure 2 days ago, lasted for about 2 hours, did ease up when he took his nitro. Patient has since been experiencing very mild chest pressure in the center of his chest. He denies any recent antibiotic use, sick contacts. He has not taken a COVID test yet. <Kerry Lujan PA-C - Last Filed: 06/02/22 22:05> Related Data Home Medications: Home Medications Medication Instructions Recorded Confirmed aspirin 81 mg chewable tablet 81 mg PO DAILY 06/04/19 03/30/22 calcitriol 0.25 mcg capsule 0.25 mcg PO QAM 06/04/19 03/30/22 clopidogrel 75 mg tablet 75 mg PO DAILY 06/04/19 03/30/22 ergocalciferol (vitamin D2) 1,250 50,000 unit PO WEEKLY 06/04/19 03/30/22 mcg (50,000 unit) capsule (Vitamin D2) hydralazine 100 mg tablet 100 mg PO Q8H 06/04/19 03/30/22 nitroglycerin 0.4 mg sublingual 0.4 mg sublingual Q5-15M PRN Chest 06/04/19 03/30/22 tablet Pain ezetimibe 10 mg tablet (Zetia) 10 mg PO DAILY 09/09/19 03/30/22 isosorbide mononitrate 30 mg 30 mg PO DAILY 09/09/19 03/30/22 tablet,extended release 24 hr metoprolol tartrate 100 mg tablet 100 mg PO Q12H 09/09/19 03/30/22 ranolazine 500 mg tablet,extended 500 mg PO Q12H 09/24/19 03/30/22 release,12 hr (Ranexa) cetirizine 10 mg tablet (All Day 10 mg PO DAILY 12/26/19 03/30/22 Allergy (cetirizine)) furosemide 80 mg tablet 120 mg PO BID 02/02/20 03/30/22 calcium acetate(phosphat bind) 667 667 mg PO QID 03/31/20 03/30/22 mg capsule famotidine 40 mg tablet 40 mg PO HS 03/31/20 03/30/22 atorvastatin 80 mg tablet 80 mg PO HS 11/26/20 03/30/22 colchicine 0.6 mg tablet (Colcrys) 0.6 mg PO QMWF 11/26/20 03/30/22 meloxicam 7.5 mg tablet 7.5 mg PO DAILY PRN Pain (Scale 11/26/20 03/30/22 Score 4-6) omeprazole 20 mg capsule,delayed 20 mg PO QAM 11/26/20 03/30/22 release clonidine HCl 0.2 mg tablet 0.2 mg PO Q8HR 02/01/21 03/30/22 gemfibrozil 600 mg tablet 600 mg PO BID 05/15/21 03/30/22 metolazone 5 mg tablet 5 mg PO DAILY 12/09/21 03/30/22 <Kerry Lujan PA-C - Last Filed: 06/02/22 22:05> Allergies/Adverse Reactions: Allergies Allergy/AdvReac Type Severity Reaction Status Date / Time allopurinol Allergy Severe Other Verified 06/02/22 19:04 iohexol Allergy Severe Difficulty Verified 06/02/22 19:04 [From CONTRAST - CT, XRAY] Breathing ticagrelor Allergy Intermediate Rash Verified 06/02/22 19:04 <Kerry Lujan PA-C - Last Filed: 06/02/22 22:05> Review of Systems Review of Systems: Gen: Reports fatigue. Denies fevers or chills Eyes: Denies eye pain or visual change ENT: Denies congestion Respiratory: Reports shortness of breath and cough. CV: Reports chest pain. Denies palpitations GI: Reports nausea, vomiting, diarrhea, abdominal pain : denies burning, urgency, frequency or hematuria Musculoskeletal: Denies back pain or muscle pain Neuro: Denies numbness, tingling, weakness or focal weakness Skin: Denies rash Except as documented, all other sy
[2022-06-02 18:04] LABS: Phosphorus 3.7 mg/dL (2.5-4.5)
[2022-06-02] MEDS: ASPIRIN 81 MG CHEWABLE TABLET 324 MG PO (19:08)
[2022-06-02] MEDS: ONDANSETRON INJ 4 MG/2 ML VIAL IV PUSH (19:08)
[2022-06-02] MEDS: POTASSIUM CHLORIDE 20 MEQ TABLET PO (19:09)
[2022-06-02] MEDS: HEPARIN SODIUM 5,000 UNITS/ML VIAL 4000 UNITS IV PUSH ×2 (19:11→20:30)
[2022-06-02] MEDS: HEPARIN SOD/D5W 100 UNITS/ML 25,000 UNITS/250 ML BAG 10 UNITS IV CONT (19:12)
[2022-06-02 19:15] VITALS: BP 178/60; PULSE 71; RESP 18; O2SAT 94
--- NOTE | 2022-06-02 19:57 | PC.NURSE ---
2 ATTEMPTS FOR 2ND IV ACCESS UNSUCCESSFUL BY THIS NURSE; BOTH IN LEFT FOREARM.
[2022-06-02 20:15] LABS: INR 1.2; Prothrombin Time 14.7 Seconds (11.1-14.7)
[2022-06-02 20:17] LABS: Partial Thromboplastin Time 68.5 SECONDS (22.3-36.8)
[2022-06-02 20:20] LABS: Basophils Percent Auto 0.4 % (0.2-1.2); Eosinophils Absolute Auto 0.1 K/mm3 (0-0.3); Eosinophils Percent Auto 1.1 % (0-4.4); Hematocrit 30.1 % (42.0-52.0); Hemoglobin 10.2 g/dL (14.0-18.0); Immature Granulocyte Absolute 0.03 K/mm3 (0.00-0.031); Immature Granulocyte Percent A 0.4 % (0-0.5); Lymphocytes Absolute Auto 1.21 K/mm3 (0.9-3.2); Mean Corpuscular HGB Conc 33.9 g/dl (32-36); Mean Corpuscular Hemoglobin 30.9 pg (26-34); Mean Corpuscular Volume 91.2 fl (80-100); Mean Platelet Volume 9.7 fl (7.4-10.4); Monocytes Absolute Auto 1.1 K/mm3 (0.1-0.6); Neutrophils Absolute Auto 4.7 K/mm3 (1.3-6.7); Neutrophils Percent Auto 66.1 % (45.5-73.1); Platelet Count Result 206 k/mm3 (150-375); Red Cell Distribution Width 13.1 % (11.5-14.5); White Blood Count 7.1 K/mm3 (4.5-10.0)
--- NOTE | 2022-06-02 20:38 | PM.IMHP ---
H&P: HPI History of Present Illness Date/Time: 06/02/22 20:38 Chief Complaint: Upper respiratory infection Narrative: this is a 51-year-old male patient who is well known to the hospitalist group. The patient has a history of chronic kidney disease and he is receiving peritoneal dialysis nightly. He also has a history of ACS status post 4 stents. He also has congestive heart failure type 1 diabetes. The patient has been having generalized weakness for last 3 days. He just felt unwell for the last 3 days. Today the patient began to feel nauseated and had several episodes of vomiting. The patient had chest pressure 2 days ago that lasted for 2 hours and it did ease up when he took some nitro. It today the patient had diarrhea nearly every 15 minutes, decreased appetite, chills, feeling short of breath with any movement and a nonproductive cough. his H&H is 10.2 and 30.1 which is close to his baseline. His potassium was 3.0 in his sodium 136. BUN 55 and creatinine 5.90. Patient's troponin was found [place] 1.000[place] [address]. Influenza a B and COVID are all negative. Chest x-ray shows left basilar atelectasis -scarring. Abdominal pelvis CT was read as the following 1. Cholelithiasis with mild gallbladder distention. Correlate for right upper quadrant pain 2. Airspace opacities of the lingula and lower lobes, likely pneumonia. cardiology has been consulted the patient was started on heparin drip. The patient was supplemented with potassium, given Zofran, given an aspirin, and started on Rocephin and doxycycline The patient is being admitted for observation status on 06/02/2022.. Review of Systems Review of Systems: See HPI All systems reviewed & are unremarkable except as noted in HPI and below Constitutional: Constitutional: Reports as per HPI and Reports no additional constitutional complaints Eyes: Eyes: Reports as per HPI and Reports no additional eye complaints ENT: Reports system reviewed and no additional complaints, except as documented and Reports Normal hearing present Cardiovascular: Cardiovascular: Reports no additional cardiovascular complaints Respiratory: Respiratory: Reports no additional respiratory complaints and Reports no additional respiratory complaints Gastrointestinal: Gastrointestinal: Reports as per HPI and Reports no additional gastrointestinal complaints Musculoskeletal: Musculoskeletal: Reports no additional musculoskeletal complaints Integumentary/Breasts: Skin/Breast: Reports system reviewed and no additional complaints, except as docu and Reports as per HPI Neurologic: Reports system reviewed and no additional complaints, except as documented, Reports as per HPI and Reports Normal hearing present Psychiatric: Psychiatric: Reports no additional psychiatric complaints and Reports as per HPI Endocrine: Endocrine: Reports no additional endocrine complaints Hematologic/Lymphatic: Hematologic/Lymphatic: Reports no additional hematologic/lymphatic complaints Allergic/Immunologic: Allergic/Immunologic: Reports no additional allergic/immunologic complaints [facility] Past Medical History Medical History (Updated 06/02/22 @ 23:18 by Clarice Christian NP) Anemia in chronic kidney disease Angina pectoris, unspecified Anxiety Arthritis Bronchitis Chronic renal failure Congestive heart failure Echocardiogram May 2017 EF of 50% with hypokinetic apical, inferior and basal inferior lateral segment, mild enlargement of left atrium. Coronary artery disease With history of several stents. Followed by [facility]. Deep venous thrombosis Chronic right popliteal DVT. Diabetes mellitus with hyperosmolarity without hyperglycemic hyperosmolar nonketotic coma Diabetic peripheral neuropathy Diabetic retinopathy DKA (diabetic ketoacidoses) DKA (diabetic ketoacidoses) DKA (diabetic ketoacidosis) Dyspnea Elevated d-dimer Elevated LFTs End-stage renal disease on peritoneal dialysis
[2022-06-02] MEDS: DOXYCYCLINE 100 MG/NS 100 ML 100 MG/100 ML BAG IVPB (21:24)
[2022-06-02 22:00] VITALS: PULSE 66
[2022-06-02 22:02] LABS: Influenza A QL RT-PCR Negative (Negative); Influenza B QL RT-PCR Negative (Negative); SARS-CoV-2 RNA PCR Negative
--- NOTE | 2022-06-02 22:12 | ADMGEN ---
This patient, Juvenal Daigle Jr., was admitted to IMU Room 200-01 at 2212. Patient/family oriented to hospital policies and general routines including ID bracelet, bed and alarms, visiting hours, pain management, procedures, bathroom and other care routines, personal items, smoking policy, room service/diet, and visiting hours. Information on how to activate the Rapid Response Team has been discussed. Patient/Family are encouraged to report perceived risks to care and to ask questions if they do not understand what they are told or what they should do.
[2022-06-02 22:21] VITALS: BP 158/62; PULSE 65; RESP 20; TEMP 36.6; O2SAT 98; BMI 42.0
[2022-06-02 23:03] VITALS: PULSE 64
--- NOTE | 2022-06-02 23:28 | PC.NURSE ---
PATIENT HAS AN INSULIN PUMP. PATIENT HAS SIGNED CONTRACT TO TAKE CARE OF AND MANAGE INSULIN PUMP. PATIENT VERBALIZED ABILITY TO MANAGE HIS INSULIN PUMP.
[2022-06-02 23:41] VITALS: O2SAT 98
--- NOTE | 2022-06-02 23:46 | PC.NURSE ---
INSULIN PUMP DISCONTINUED FOR NOW. OMNIOPOD REMOVED.
[2022-06-03] VITALS (37 sets, daily range): BP systolic 109–132; BP diastolic 46–59; PULSE 49–68; RESP 10–22; TEMP 36.4–37.1; O2SAT 22–99
[2022-06-03 00:53] LABS: Glucose Point of Care 42 mg/dl (65-105)
[2022-06-03] MEDS: FAMOTIDINE 20 MG TABLET 40 MG PO ×2 (01:01→21:32)
[2022-06-03] MEDS: DEXTROSE 50% 25 GM/50 ML SYRINGE IV PUSH (01:01)
[2022-06-03] MEDS: METOPROLOL TARTRATE 50 MG TAB 100 MG PO ×3 (01:02→21:33)
[2022-06-03] MEDS: ATORVASTATIN 40 MG TABLET 80 MG PO ×2 (01:04→21:31)
[2022-06-03] MEDS: hydrALAZINE HCL 50 MG TABLET 100 MG PO ×3 (01:04→21:32)
[2022-06-03] MEDS: cloNIDine HCL 0.1 MG TABLET 0.3 MG PO ×3 (01:05→21:34)
[2022-06-03] MEDS: CALCIUM ACETATE 667 MG TABLET PO ×3 (01:06→21:32)
[2022-06-03] MEDS: RANOLAZINE 500 MG TAB.ER.12H PO ×3 (01:06→21:33)
[2022-06-03] MEDS: OMEGA 3 POLYUNSAT FATTY ACIDS 1 GM CAP PO ×2 (01:07→21:33)
[2022-06-03] MEDS: TERAZOSIN HCL 1 MG CAPSULE 2 MG PO ×2 (01:07→21:33)
--- NOTE | 2022-06-03 01:11 | PC.NURSE ---
PATIENTS CONTINUOUS BLOOD GLUCOSE MONITOR SAID BLOOD SUGAR WAS 72. OUR GLUCOMETER SAID 41. 1/2 AMP OF GLUCOSE GIVEN.
--- NOTE | 2022-06-03 01:20 | PC.NURSE ---
PATIENT STATED THAT HE GAVE HIMSELF A BOLUS OF INSULIN BEFORE EATING A LIGHT MEAL. PRIOR TO REMOVAL OF INSULIN PUMP.
[2022-06-03 02:38] LABS: Partial Thromboplastin Time 97.2 SECONDS (22.3-36.8)
[2022-06-03 03:24] LABS: Glucose Point of Care 196 mg/dl (65-105)
--- NOTE | 2022-06-03 05:05 | PC.NURSE ---
MONITORING CHARTING AND MEDICATION DISPENSING FOR THIS PATIENT. DONE BY JATINDER ROSE RN-LICENSE PENDING AND I AGREE WITH THE CHARTING.
[2022-06-03 05:31] LABS: Basophils Percent Auto 0.6 % (0.2-1.2); Eosinophils Absolute Auto 0.2 K/mm3 (0-0.3); Eosinophils Percent Auto 3.2 % (0-4.4); Hemoglobin 9.5 g/dL (14.0-18.0); Immature Granulocyte Absolute 0.03 K/mm3 (0.00-0.031); Immature Granulocyte Percent A 0.4 % (0-0.5); Lymphocytes Absolute Auto 1.43 K/mm3 (0.9-3.2); Lymphocytes Percent Auto 20.5 % (18.3-44.2); Mean Corpuscular HGB Conc 33.9 g/dl (32-36); Mean Corpuscular Hemoglobin 30.9 pg (26-34); Mean Corpuscular Volume 91.2 fl (80-100); Mean Platelet Volume 9.9 fl (7.4-10.4); Monocytes Percent Auto 14.6 % (2.6-8.5); Neutrophils Absolute Auto 4.2 K/mm3 (1.3-6.7); Neutrophils Percent Auto 60.7 % (45.5-73.1); Platelet Count Result 170 k/mm3 (150-375); Red Blood Count 3.07 M/mm3 (4.6-6.20)
[2022-06-03 05:36] LABS: Glucose Point of Care 328 mg/dl (65-105)
[2022-06-03 05:45] LABS: Partial Thromboplastin Time 52.6 SECONDS (22.3-36.8)
[2022-06-03 05:52] LABS: Alanine Aminotransferase 30 U/L (6-50); Albumin Level 3.3 g/dL (3.5-5.1); Alkaline Phosphatase 105 U/L (38-126); Anion Gap 10 mmol/L (8-16); Aspartate Amino Transferase 28 U/L (17-59); Blood Urea Nitrogen 59 mg/dL (9-20); Calcium 7.7 mg/dL (8.4-10.2); Carbon Dioxide 26 mmol/L (22-30); Chloride 95 mmol/L (98-107); Estimated CRCL calculation 16 ml/min; Estimated Glomerular Filt Rate 9; Glucose 289 mg/dL (65-110); Lipase 65 U/L (23-300); Potassium 3.4 mmol/L (3.4-5.0); Sodium 131 mmol/L (137-145)
[2022-06-03 07:50] LABS: Thyroid Stimulating Hormone Reflex 0.959 uIU/mL (0.465-4.68)
[2022-06-03 08:08] LABS: INR 1.1; Partial Thromboplastin Time 44.9 SECONDS (22.3-36.8); Prothrombin Time 13.5 Seconds (11.1-14.7)
[2022-06-03 08:11] LABS: Glucose Point of Care 442 mg/dl (65-105)
[2022-06-03] MEDS: HEPARIN SODIUM 5,000 UNITS/ML VIAL 4000 UNITS IV PUSH (08:15)
[2022-06-03 08:18] LABS: Troponin I 0.729 ng/mL (0.000-0.034)
--- NOTE | 2022-06-03 08:37 | ECG_ITS ---
Measurements Intervals [place] Rate: 62 P: 57 AK: 216 QRS: -44 QRSD: 130 T: 83 QT: 463 QTc: 471 Interpretive Statements SINUS RHYTHM WITH FIRST DEGREE AV BLOCK MARKED LEFT AXIS DEVIATION [QRS AXIS < -30] POOR R-WAVE PROGRESSION COMPARED TO ECG 06/02/2022 16:16:37 SLIGHTLY LONGER AK INTERVAL NO OTHER CHANGE Electronically Signed On 06-03-2022 15:38:27 CDT by Abelardo Petit M.D.
--- NOTE | 2022-06-03 08:56 | PM.CNCAR ---
Assessment and Plan Assessment and plan (1) Elevated troponin: Code(s): R77.8 - Other specified abnormalities of plasma proteins Status: Acute Plan This is a 51-year-old man known to have coronary artery disease with previous interventional revascularization. He does not receive his cardiology care here but commonly comes to this hospital when he is having symptoms. His current symptomatology I do not think is likely to be cardiac in nature given the fact that it started with diarrhea several days ago. That has essentially resolved but now he is having epigastric to low substernal chest pain. His troponin levels are elevated but flat. There are no acute EKG abnormalities. Because of this distress that he is in I will recommend proceeding with a follow-up angiogram. I will have to pre treat him with steroids because of his contrast allergy. Further recommendations will be forthcoming after his angiograms are performed later today. It is certainly possible that the symptoms are related to the gallstones that were noted on his CT scan Abelardo Petit MD [facility] History of Present Illness History of Present Illness Consult date/time: 06/03/22 08:56 Consult reason: chest pain Reason For Visit: NSTEMI, pneumonia Narrative: This is a 51-year-old patient with known coronary artery disease who I am seeing this morning at the request of the hospitalist because of chest pain. His admitting diagnosis has been given to him as non ST-elevation SC. Presumably this is because of his symptoms and elevation of his troponin level. The patient states that he was in his usual state of health until about 5 days ago when he started to have some abdominal discomfort and diarrhea. On that day he had multiple episodes of watery diarrhea starting in the morning and lasting pretty much the rest of the day. The diarrhea seemed to settle down after that and starting yesterday he started to have some epigastric to low substernal pressure-like chest pain. The discomfort seems to wax and wane but it is there currently. He came to the emergency room where his electrocardiogram shows sinus rhythm with a left anterior superior hemiblock but no acute changes and no changes in comparison to prior tracings in this record. His troponin levels are modestly elevated and are essentially flat between 0.7 and 1.0. He continues to be in some distress with this pain when I am seeing him this morning. A repeat electrocardiogram at this time shows no changes. He has a history of coronary artery disease with interventional revascularization primarily he has had problematic disease in his right coronary artery. He has not had any recent coronary interventions. He receives his cardiology care from a not on a another practice that is not here at [facility]. His most recent angiogram was in the summer of 2020 which by report was favorable except for a stenosis and a PL branch of the right coronary artery which is jailed by a distal RCA stent. The patient also has end-stage renal disease and is on peritoneal dialysis. He is also hypertensive, diabetic and morbidly obese. He has an allergy to contrast with respiratory distress. His medical regimen consists of aspirin, clopidogrel amlodipine atorvastatin clonidine hydralazine, metoprolol and isosorbide as well as Ranexa. He also was on an insulin pump. Review of Systems Constitutional: Constitutional: Reports lethargy Eyes: Eyes: Reports no additional eye complaints ENT: Reports system reviewed and no additional complaints, except as documented Cardiovascular: Cardiovascular: Reports as per HPI Respiratory: Respiratory: Reports no additional respiratory complaints Gastrointestinal: Gastrointestinal: Reports as per HPI, Reports abdominal pain and Reports diarrhea Musculoskeletal: Musculoskeletal: Reports no additional musculoskeletal complaints Integumentary/Breasts: Skin/Breast: Reports system reviewed and no
[2022-06-03] MEDS: INSULIN ASPART (*BKC) 100 UNITS/ML 10 UNITS SUB-Q ×2 (09:05→18:13)
[2022-06-03] MEDS: methylPREDNISolone SOD SUCC 125 MG VIAL IV PUSH (09:07)
[2022-06-03] MEDS: INSULIN GLARGINE (*BKC) 100 UNITS/ML 33 UNITS SUB-Q (09:08)
[2022-06-03] MEDS: PANTOPRAZOLE 40 MG TABLET PO (09:13)
[2022-06-03] MEDS: ASPIRIN 81 MG CHEWABLE TABLET PO (09:13)
[2022-06-03] MEDS: CLOPIDOGREL BISULFATE 75 MG TABLET PO (09:13)
[2022-06-03] MEDS: ISOSORBIDE MONONITRATE 30 MG TAB.ER.24H PO (09:14)
[2022-06-03] MEDS: amLODIPine BESYLATE 5 MG TABLET 10 MG PO (09:19)
[2022-06-03 09:35] LABS: Hemoglobin A1C 8.1 % (<5.7)
[2022-06-03 11:03] LABS: Glucose Point of Care 394 mg/dl (65-105)
--- NOTE | 2022-06-03 12:38 | WPDMODSED ---
Moderate Sedation Note-Pt Data Patient Data Diagnosis: coronary artery disease with chest pain end-stage renal disease on peritoneal dialysis morbid obesity Present Complaint: chest pain Procedure to be performed/Plan: coronary angiography Allergies Allergy/AdvReac Type Severity Reaction Status Date / Time allopurinol Allergy Severe Other Verified 06/02/22 19:04 iohexol Allergy Severe Difficulty Verified 06/02/22 19:04 [From CONTRAST - CT, XRAY] Breathing ticagrelor Allergy Intermediate Rash Verified 06/02/22 19:04 Home Medications Medication Instructions Recorded Confirmed Type aspirin 81 mg chewable tablet 81 mg PO DAILY 06/04/19 06/02/22 History calcitriol 0.25 mcg capsule 0.25 mcg PO QAM 06/04/19 06/02/22 History clopidogrel 75 mg tablet 75 mg PO DAILY 06/04/19 06/02/22 History ergocalciferol (vitamin D2) 1,250 50,000 unit PO WEEKLY 06/04/19 06/02/22 History mcg (50,000 unit) capsule (Vitamin D2) hydralazine 100 mg tablet 100 mg PO Q8H 06/04/19 06/02/22 History nitroglycerin 0.4 mg sublingual 0.4 mg sublingual Q5-15M PRN Chest 06/04/19 06/02/22 History tablet Pain ezetimibe 10 mg tablet (Zetia) 10 mg PO DAILY 09/09/19 06/02/22 History isosorbide mononitrate 30 mg 30 mg PO DAILY 09/09/19 06/02/22 History tablet,extended release 24 hr metoprolol tartrate 100 mg tablet 100 mg PO Q12H 09/09/19 06/02/22 History ranolazine 500 mg tablet,extended 500 mg PO Q12H 09/24/19 06/02/22 History release,12 hr (Ranexa) cetirizine 10 mg tablet (All Day 10 mg PO DAILY 12/26/19 06/02/22 History Allergy (cetirizine)) furosemide 80 mg tablet 120 mg PO BID 02/02/20 06/02/22 History calcium acetate(phosphat bind) 667 667 mg PO QID 03/31/20 06/02/22 History mg capsule famotidine 40 mg tablet 40 mg PO HS 03/31/20 06/02/22 History atorvastatin 80 mg tablet 80 mg PO HS 11/26/20 06/02/22 History colchicine 0.6 mg tablet (Colcrys) 0.6 mg PO QMWF 11/26/20 06/02/22 History meloxicam 7.5 mg tablet 7.5 mg PO DAILY PRN Pain (Scale 11/26/20 06/02/22 History Score 4-6) omeprazole 20 mg capsule,delayed 20 mg PO QAM 11/26/20 06/02/22 History release clonidine HCl 0.2 mg tablet 0.3 mg PO Q8HR 02/01/21 06/02/22 History gemfibrozil 600 mg tablet 600 mg PO BID 05/15/21 06/02/22 History Novolog U-100 Insulin aspart 100 See Rx Instructions .Route 10/06/21 06/02/22 Rx unit/mL subcutaneous solution .COMPLEX #100 mL (insulin aspart U-100) metolazone 5 mg tablet 5 mg PO DAILY 12/09/21 06/02/22 History glucagon 1 mg/0.2 mL subcutaneous See Rx Instructions .Route 03/30/22 06/02/22 Rx auto-injector (Gvoke HypoPen .COMPLEX #0.4 mL 2-Pack) albuterol sulfate 90 mcg/actuation 2 puff inhalation DAILY PRN 06/02/22 06/02/22 History aerosol inhaler Shortness Of Breath Or Wheezing amlodipine 10 mg tablet 10 mg PO DAILY 06/02/22 06/02/22 History docusate sodium 100 mg capsule 100 mg PO DAILY 06/02/22 06/02/22 History icosapent ethyl 1 gram capsule 1 g PO BID 06/02/22 06/02/22 History (Vascepa) terazosin 2 mg capsule 2 mg PO HS 06/02/22 06/02/22 History Current Medications: Active Medications Albuterol (Albuterol Sulfate (*Sp) Aerosol 1 Puff) 2 puff INHALATION DAILY PRN PRN Reason: Shortness Of Breath Or Wheezing Amlodipine Besylate (Amlodipine Besylate 5 Mg Tablet) 10 mg PO DAILY [facility] Last Admin: 06/03/22 09:19 Dose: 10 mg Aspirin (Aspirin 81 Mg Chewable Tablet) 81 mg PO DAILY [facility] Last Admin: 06/03/22 09:13 Dose: 81 mg Atorvastatin Calcium (Atorvastatin 40 Mg Tablet) 80 mg PO HS [facility] Last Admin: 06/03/22 01:04 Dose: 80 mg Calcitriol (Calcitriol 0.25 Mcg Capsule) 0.25 mcg PO QAM [facility] Calcium Acetate (Calcium Acetate 667 Mg Tablet) 667 mg PO QID [facility] Last Admin: 06/03/22 09:13 Dose: Not Given Clonidine HCl (Clonidine Hcl 0.1 Mg Tablet) 0.3 mg PO Q8HR [facility] Last Admin: 06/03/22 05:29 Dose: 0.3 mg Clopidogrel Bisulfate (Clopidogrel Bisulfate 75 Mg Tablet) 75 mg PO DAILY [facility] Last Admin: 06/03/22 0
[2022-06-03 13:15] LABS: Activated Clotting Time 115 SEC (74-137)
--- NOTE | 2022-06-03 13:19 | WPDCARDPROC ---
Cardiac Cath Procedure Note Date of procedure:: 06/03/22 Performing physician:: Abelardo Petit MD Indication:: Chest pain/ elevated troponin Brief clinical history:: this is a 51-year-old man known to have coronary artery disease with previous PCI to the right coronary artery. He receives his cardiology care elsewhere. He came to this hospital with a variety of symptoms including some diarrhea earlier in the week followed by some chest pressure-like pain in the epigastrium and low substernal region. His electrocardiogram does not show any new abnormalities. He has a left anterior fascicular block and no new changes. Troponin troponin levels are mildly elevated but flat. This is consistent with his chronic kidney disease. Because of his symptoms however angiography has been recommended this morning Procedure Procedure performed:: coronary angiography Sedation/Medication given:: fentanyl 25 mg Versed 2 mg Access site:: right femoral artery Estimated blood loss:: 20 cc Procedure note:: patient was brought to the cardiac catheterization lab in the postabsorptive state the right femoral triangle was prepared and draped in the normal fashion. Anesthesia was provided with 1% lidocaine infiltrated locally. Using the modified Seldinger technique a 5 [place] sheath was placed into the right femoral artery I then used a 5 [place] FL4 catheter to engage and inject the left coronary artery. Engagement with this catheter was not ideal ice changed for a 5 [place] 3.5 which provided much better engagement for angiography. Following this the right coronary artery was engaged and injected using a 5 [place] JR4 catheter. The cineangiograms were then reviewed and the case was terminated. The ACT was checked at 115 he was taken to the holding area for manual sheath removal. Procedure was uncomplicated and well tolerated there was no sign of groin leaving the manager laboratory Findings:: hemodynamics: Central aortic pressure is 1 26/72 left ventricle was not injected during this procedure the left main coronary artery is medium in caliber and free of significant stenosis the left anterior descending is a medium caliber artery extending down to around the apex the LAD has mild diffuse disease in all segments but there are no significant flow-limiting lesions identified there was VIPUL 3 flow down to around the apex the circumflex is a moderate caliber artery giving rise to the marginal branches and a posterior branch. There is a high-grade 99% ostial circumflex stenosis identified. The major OM branch has mild proximal disease immediately after the major OM branch the trunk of the circumflex to the posterior wall has 90% stenosis as well. The right coronary artery is moderate to large in caliber and dominant to the posterior circulation giving rise to a large RPDA and a very small RPL. There is proximal stent material in the 1st portion of the RCA which is nicely patent with no loss of lumen. There is also a stent placed in the distal RCA bridging across the origin of the small PL branches which also remains nicely patent. Conclusion:: 1. Coronary artery disease with right coronary dominant circulation previous PCI to the proximal and distal right coronary remain nicely patent as described above 2. high-grade 99% ostial circumflex stenosis as well as 90% circumflex lesion after the origin of the largest OM branch. 3. Mild diffuse disease in the LAD none of which appears to be flow-limiting 4. PCI of the circumflex will be considered as optimal treatment but is complex and high risk given the proximity to the left main and for the patient's safety should be done at a tertiary center. Abelardo Petit MD [facility]
--- NOTE | 2022-06-03 14:00 | PM.IMPN ---
Progress Note: A&P Assessment and Plan (1) Chest pain: Qualifiers: Chest pain type: precordial pain Qualified Code(s): R07.2 - Precordial pain Code(s): R07.9 - Chest pain, unspecified Status: Acute Assessment and Plan: Patient presents with complaints of chest pain. Troponin was 1.1. EKG showed normal sinus rhythm with LVH and poor R-wave progression. 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 Patient currently on aspirin, Lipitor and metoprolol. Cardiology has been consulted and patient underwent LHC. Results show 99% high-grade ostial circumflex stenosis and a 90% circumflex lesion after the origin of the largest OM branch. He is high risk and now with plans to transfer patient to tertiary care center. (2) Elevated troponin: Code(s): R77.8 - Other specified abnormalities of plasma proteins Status: Acute Assessment and Plan: As above (3) Pneumonia: Code(s): J18.9 - Pneumonia, unspecified organism Status: Acute Assessment and Plan: Chest x-ray shows left basilar atelectasis or scarring. No focal pneumonia noted. White count is normal. He does complain of SOB and a nonproductive cough. Influenza and COVID were negative. No fevers. CT of the abdomen did show airspace opacities of the lingula and lower lobes consistent with pneumonia. Blood cultures were not collected. Will continue Rocephin and azithromycin. Wean o2 as tolerated. Add IS. (4) Hypoxia: Code(s): R09.02 - Hypoxemia Status: Acute Assessment and Plan: He is hypoxic currently on 4L O2. He does not wear O2 at home. He did not have the NIV last night nor did he have PD. Wean oxygen as tolerated. PD tonight. NIV resumed. (5) Abdominal pain: Code(s): R10.9 - Unspecified abdominal pain Status: Acute Assessment and Plan: Patient presents with complaints of diarrhea, decreased appetite, chills, nausea and vomiting. Diarrhea resolved before admission and has since able to eat without recurrent n/v. He was also having diffuse abdominal pain. CT of the abdomen pelvis showed cholelithiasis with mild gallbladder wall distension. Right upper quadrant ultrasound showed distended gallbladder with gallstones and gallbladder wall thickening. +RUQ pain. Will check HIDA scan when able. (6) Congestive heart failure: Code(s): I50.9 - Heart failure, unspecified Status: Acute Assessment and Plan: Mild pedal edema. CXR not consistent with CHF. Continue dialysis to control fluid status. (7) Type 1 diabetes mellitus with hyperglycemia: Code(s): E10.65 - Type 1 diabetes mellitus with hyperglycemia Status: Acute Assessment and Plan: The patient's blood glucose was reviewed on 06/03 Glucose remains poorly controlled. His basal rate is 1.7U/hr (8A-8P) and 5.7U/hr (8P-8A). Continue AccuCheks covering with sliding scale. Hypoglycemia protocol available as needed. Prior to his pump, he was on lantus 70U QHS and 15U TID. Will advance Lantus to Q12hr dosing and add Novolog at meals. Adjust medications as needed. Continue to hold insulin pump (8) Coronary artery disease: Code(s): I25.10 - Atherosclerotic heart disease of [place] coronary artery without angina pectoris Status: Acute Assessment and Plan: As above. Continue medical management. Heart catheterization results noted. (9) End stage renal disease on dialysis: Code(s): N18.6 - End stage renal disease; Z99.2 - Dependence on renal dialysis Status: Acute Assessment and Plan: The patient does nightly peritoneal dialysis. Continue the same. Nephrology consulted and appreciate their input. Con
--- NOTE | 2022-06-03 14:47 | PC.NURSE ---
1230- to chest pain center for procedure- heparin drip turned off
--- NOTE | 2022-06-03 15:00 | SUR.PHASEII ---
Report given to Ifeoma ROLAND on IMU. Pt transported via bed. Groin site checked, unchanged.
--- NOTE | 2022-06-03 15:44 | PM.CNNEP ---
Assessment and Plan Assessment and plan (1) End-stage renal disease on peritoneal dialysis: Code(s): N18.6 - End stage renal disease; Z99.2 - Dependence on renal dialysis Status: Acute Assessment and Plan: End-stage renal disease Admitted with diarrhea Non STEMI Possible pneumonia Diarrhea Type 1 diabetes mellitus and nephropathy Benign essential hypertensiveRenal disease VS Anemia chronic kidney disease Secondary hyperparathyroidism Plan -a dialysis ordered. ESRD plans discussed with patient -cardiology contemplating transferred to [facility] for further management, full cardiac catheterization report pending -follow-up for ESRD and related needs History of Present Illness Reason for Consult Consult date: 06/03/22 Reason for consult: end stage renal disease Chief Complaint Chief complaint: NSTEMI, pneumonia, asked to see for ESRD and perit History of Present Illness Narrative: 48-year-old with a history of ESRD secondary to type 1 diabetes mellitus with nephropathy, has hypertension, obstructive sleep apnea on CPAP, coronary artery disease, CHF, anemia chronic kidney disease, secondary hyperparathyroidism, obesity, who presents with diarrhea since last Monday and intermittent chest pains since Monday. Associated shortness of breath. Admitted for further management. His last dialysis was Monday. He was admitted yesterday. I was consulted this morning for his ESRD needs. Currently feeling okay. No nausea vomiting. No chest pains. Patient is not uremic. No obvious swelling in lower extremities. Review of Systems Review of Systems: Systemic review negative PMFSH Past Medical History Medical History (Updated 06/02/22 @ 23:18 by Clarice Christian NP) Anemia in chronic kidney disease Angina pectoris, unspecified Anxiety Arthritis Bronchitis Chronic renal failure Congestive heart failure Echocardiogram May 2017 EF of 50% with hypokinetic apical, inferior and basal inferior lateral segment, mild enlargement of left atrium. Coronary artery disease With history of several stents. Followed by [facility]. Deep venous thrombosis Chronic right popliteal DVT. Diabetes mellitus with hyperosmolarity without hyperglycemic hyperosmolar nonketotic coma Diabetic peripheral neuropathy Diabetic retinopathy DKA (diabetic ketoacidoses) DKA (diabetic ketoacidoses) DKA (diabetic ketoacidosis) Dyspnea Elevated d-dimer Elevated LFTs End-stage renal disease on peritoneal dialysis Essential hypertension Fracture left lower ext Gastroesophageal reflux disease Gout History of DVT (deep vein thrombosis) Behind right knee chronic Hyperlipidemia Hypokalemia Hyponatremia Lower extremity edema Obstructive sleep apnea With inconsistent CPAP use. Paroxysmal atrial fibrillation The patient denies Peritoneal dialysis catheter in place Pitting edema Renal osteodystrophy Secondary hyperparathyroidism of renal origin Seizure X1 with etiology unknown Type 1 diabetes mellitus Onset around age 13. Type 1 diabetes mellitus with hyperglycemia Surgical History Surgical History H/O hernia repair History of anterior cruciate ligament surgery (~2000) Left knee History of appendectomy (~2006) History of arthroscopy of left knee History of bilateral carpal tunnel release Right 05/03/2018. Left 06/02/2018. History of cardiac catheterization 01/21/2021 catheterization at [facility], Dr. Hoover done: Little change from prior catheterization. Patent stents in the RCA and PDA. Previously jailed posterolateral is occluded and development of a 50% stenosis of a branch of om 1. Normal LV function. :August 2019 demonstrated patent stents with 40% stenosis of 1 vessel with no stents or angioplasty performed per patient report. :November 2018 at [facility] - stent x3. :March 2017 demonstrating mild diffuse coronary d
[2022-06-03 15:54] LABS: Glucose Point of Care 367 mg/dl (65-105)
[2022-06-03] MEDS: INSULIN ASPART (*BKC) 100 UNITS/ML SUB-Q (16:07)
[2022-06-03] MEDS: LORATADINE 10 MG TABLET PO (16:11)
[2022-06-03] MEDS: calcitrioL 0.25 MCG CAPSULE PO (16:11)
[2022-06-03] MEDS: EZETIMIBE 10 MG TABLET PO (16:12)
[2022-06-03] MEDS: metOLazone 5 MG TABLET PO (16:12)
[2022-06-03] MEDS: DOCUSATE SODIUM 100 MG CAPSULE PO (16:14)
[2022-06-03] MEDS: gemfibroziL 600 MG TABLET PO (16:19)
[2022-06-03] MEDS: COLCHICINE 0.6 MG TABLET PO (16:31)
[2022-06-03] MEDS: FUROSEMIDE 40 MG TABLET 120 MG PO (16:34)
[2022-06-03 17:32] LABS: Glucose Point of Care 430 mg/dl (65-105)
--- NOTE | 2022-06-03 20:46 | PC.NURSE ---
1500- pt returned to room- post cardiac cath - right groin check - dressing cdi- area soft no hematoma-+2 pedal pulse- pt instructed on post op activity- acknowledge understanding
[2022-06-03 21:03] LABS: Glucose Point of Care 493 mg/dl (65-105)
[2022-06-03] MEDS: HEPARIN SODIUM 5,000 UNITS/ML VIAL 5000 UNITS SUB-Q (21:34)
[2022-06-03] MEDS: INSULIN GLARGINE (*BKC) 100 UNITS/ML 50 UNITS SUB-Q (23:13)
[2022-06-03] MEDS: INSULIN ASPART (*BKC) 100 UNITS/ML 12 UNITS SUB-Q (23:14)
[2022-06-04] VITALS (15 sets, daily range): BP systolic 121–144; BP diastolic 54–80; PULSE 47–68; RESP 12–18; TEMP 36.2–36.6; O2SAT 93–99
[2022-06-04 02:12] LABS: Glucose Point of Care > 500 mg/dl (65-105)
[2022-06-04 02:31] LABS: Basophils Percent Auto 0.2 % (0.2-1.2); Hematocrit 27.8 % (42.0-52.0); Hemoglobin 9.6 g/dL (14.0-18.0); Immature Granulocyte Absolute 0.02 K/mm3 (0.00-0.031); Immature Granulocyte Percent A 0.3 % (0-0.5); Lymphocytes Absolute Auto 0.57 K/mm3 (0.9-3.2); Lymphocytes Percent Auto 9.3 % (18.3-44.2); Mean Corpuscular HGB Conc 34.5 g/dl (32-36); Mean Corpuscular Hemoglobin 31.8 pg (26-34); Mean Corpuscular Volume 92.1 fl (80-100); Mean Platelet Volume 10.6 fl (7.4-10.4); Monocytes Absolute Auto 0.3 K/mm3 (0.1-0.6); Monocytes Percent Auto 4.2 % (2.6-8.5); Neutrophils Absolute Auto 5.3 K/mm3 (1.3-6.7); Platelet Count Result 165 k/mm3 (150-375); Red Blood Count 3.02 M/mm3 (4.6-6.20); Red Cell Distribution Width 12.7 % (11.5-14.5); White Blood Count 6.1 K/mm3 (4.5-10.0)
[2022-06-04 02:53] LABS: Alanine Aminotransferase 31 U/L (6-50); Albumin Level 3.5 g/dL (3.5-5.1); Alkaline Phosphatase 96 U/L (38-126); Anion Gap 18 mmol/L (8-16); Aspartate Amino Transferase 39 U/L (17-59); Bilirubin,Total 0.6 mg/dL (0.2-1.3); Blood Urea Nitrogen 69 mg/dL (9-20); Calcium 8.1 mg/dL (8.4-10.2); Carbon Dioxide 22 mmol/L (22-30); Chloride 87 mmol/L (98-107); Estimated CRCL calculation 13 ml/min; Estimated Glomerular Filt Rate 7; Phosphorus 5.5 mg/dL (2.5-4.5); Sodium 127 mmol/L (137-145)
[2022-06-04 03:06] LABS: Glucose 672 mg/dL (65-110)
[2022-06-04 03:07] LABS: Glucose 683 mg/dL (65-110)
[2022-06-04] MEDS: INSULIN ASPART (*BKC) 100 UNITS/ML 20 UNITS SUB-Q ×2 (03:24→07:14)
[2022-06-04] MEDS: hydrALAZINE HCL 50 MG TABLET 100 MG PO ×2 (06:24→13:24)
[2022-06-04] MEDS: ONDANSETRON INJ 4 MG/2 ML VIAL IV PUSH (06:24)
[2022-06-04 06:51] LABS: Glucose Point of Care > 500 mg/dl (65-105)
[2022-06-04 09:02] LABS: Glucose Point of Care > 500 mg/dl (65-105)
[2022-06-04] MEDS: gemfibroziL 600 MG TABLET PO ×2 (09:05→16:25)
[2022-06-04] MEDS: ASPIRIN 81 MG CHEWABLE TABLET PO (09:05)
[2022-06-04] MEDS: amLODIPine BESYLATE 5 MG TABLET 10 MG PO (09:05)
[2022-06-04] MEDS: CLOPIDOGREL BISULFATE 75 MG TABLET PO (09:06)
[2022-06-04] MEDS: CALCIUM ACETATE 667 MG TABLET PO ×4 (09:06→20:01)
[2022-06-04] MEDS: FUROSEMIDE 40 MG TABLET 120 MG PO ×2 (09:07→16:25)
[2022-06-04] MEDS: OMEGA 3 POLYUNSAT FATTY ACIDS 1 GM CAP PO ×2 (09:08→20:02)
[2022-06-04] MEDS: RANOLAZINE 500 MG TAB.ER.12H PO ×2 (09:08→20:02)
[2022-06-04] MEDS: HEPARIN SODIUM 5,000 UNITS/ML VIAL 5000 UNITS SUB-Q ×2 (09:08→20:02)
[2022-06-04] MEDS: PANTOPRAZOLE 40 MG TABLET PO (09:08)
[2022-06-04 09:25] LABS: Glucose Point of Care > 500 mg/dl (65-105)
[2022-06-04] MEDS: DOCUSATE SODIUM 100 MG CAPSULE PO (09:38)
[2022-06-04] MEDS: ISOSORBIDE MONONITRATE 30 MG TAB.ER.24H PO (09:38)
[2022-06-04] MEDS: INSULIN GLARGINE (*BKC) 100 UNITS/ML 45 UNITS SUB-Q (09:39)
[2022-06-04] MEDS: INSULIN ASPART (*BKC) 100 UNITS/ML 25 UNITS SUB-Q ×2 (09:39→13:23)
--- NOTE | 2022-06-04 10:44 | PM.IMPN ---
Progress Note: A&P Assessment and Plan (1) Type 1 diabetes mellitus with hyperglycemia: Code(s): E10.65 - Type 1 diabetes mellitus with hyperglycemia Status: Acute Assessment and Plan: The patient's blood glucose was reviewed on 06/04 His basal rate is 1.7U/hr (8A-8P) and 5.7U/hr (8P-8A). Glucose markedly elevated overnight felt related to the Soul-Medrol (125mg) dose he received. His Lantus and meal time insulin was advanced. Will continue Q2hr glucose checks and treat accordingly. Serum bicarb normal but AG 18 now. Hold off on IV fluids since he is ESRD. Continue AccuCheks covering with sliding scale. Hypoglycemia protocol available as needed. Adjust medications as needed. Continue to hold insulin pump for now (2) Acute non-ST elevation myocardial infarction (NSTEMI): Code(s): I21.4 - Non-ST elevation (NSTEMI) myocardial infarction Status: Acute Assessment and Plan: Patient presents with complaints of chest pain. Troponin was 1.1. EKG showed normal sinus rhythm with LVH and poor R-wave progression. Patient has a history of CAD with cardiac stenting.The patient had a coronary angiogram done 2020 by his primary child care attendant demonstrating no significant coronary lesions except for occlusion of the RPL branch because of jailing this with a distal RCA stent which was deployed previously. Patient currently on aspirin, Lipitor and metoprolol. Cardiology was consulted and patient underwent LHC 06/03. Results show 99% high-grade ostial circumflex stenosis and a 90% circumflex lesion after the origin of the largest OM branch. He is high risk and now with plans to transfer patient to tertiary care center. Transfer pending bed availability. (3) Pneumonia: Code(s): J18.9 - Pneumonia, unspecified organism Status: Acute Assessment and Plan: Chest x-ray shows left basilar atelectasis or scarring. No focal pneumonia noted. White count is normal. He does complain of SOB and a nonproductive cough. Influenza and COVID were negative. No fevers. CT of the abdomen did show airspace opacities of the lingula and lower lobes consistent with pneumonia. Blood cultures were not collected. Will continue Rocephin and azithromycin. Wean o2 as tolerated. Continue IS. (4) Hypoxia: Code(s): R09.02 - Hypoxemia Status: Acute Assessment and Plan: He is hypoxic currently on 4L O2. He does not wear O2 at home. He worese his CPAP off/on last night. Doppler negative for DVT. Wean oxygen as tolerated. PD tonight. Encouraged CPAP use (5) Abdominal pain: Code(s): R10.9 - Unspecified abdominal pain Status: Acute Assessment and Plan: Patient presents with complaints of diarrhea, decreased appetite, chills, nausea and vomiting. Diarrhea resolved before admission. he was able to eat without recurrent n/v until overnight. CT of the abdomen pelvis showed cholelithiasis with mild gallbladder wall distension. Right upper quadrant ultrasound showed distended gallbladder with gallstones and gallbladder wall thickening. +RUQ pain. Will check HIDA scan when able. (6) Congestive heart failure: Code(s): I50.9 - Heart failure, unspecified Status: Acute Assessment and Plan: Mild persistent pedal edema. CXR 06/02 not consistent with CHF. Remains on Lasix and metolazone. Continue dialysis to control fluid status. Add Babak styles (7) Coronary artery disease: Code(s): I25.10 - Atherosclerotic heart disease of [place] coronary artery without angina pectoris Status: Acute Assessment and Plan: As above. Continue medical management. Heart catheterization results noted. (8) End stage renal disease on dialysis: Code(s): N18.6 - End stage renal disease; Z99.2 - Dependence on renal dialysis Status: Acute Assessment and Plan: The patient does nightly peritoneal dialysis. Toelrated PD well last night. Does have some mild tenderness.
[2022-06-04] MEDS: calcitrioL 0.25 MCG CAPSULE PO (12:18)
[2022-06-04] MEDS: EZETIMIBE 10 MG TABLET PO (12:18)
[2022-06-04] MEDS: LORATADINE 10 MG TABLET PO (12:18)
[2022-06-04] MEDS: metOLazone 5 MG TABLET PO (12:18)
[2022-06-04] MEDS: METOPROLOL TARTRATE 50 MG TAB 100 MG PO (12:20)
[2022-06-04 13:07] LABS: Glucose Point of Care 494 mg/dl (65-105)
[2022-06-04] MEDS: cloNIDine HCL 0.1 MG TABLET 0.3 MG PO (13:25)
--- NOTE | 2022-06-04 14:02 | PM.PNCARD ---
Progress Note: A&P Assessment and Plan (1) Acute non-ST elevation myocardial infarction (NSTEMI): Code(s): I21.4 - Non-ST elevation (NSTEMI) myocardial infarction Status: Acute Assessment and Plan: Patient waiting for transfer to [facility] for high-risk PCI. Continue aspirin, clopidogrel, atorvastatin, Zetia. He remains on gemfibrozil. (2) CAD (coronary artery disease): Code(s): I25.10 - Atherosclerotic heart disease of [place] coronary artery without angina pectoris Status: Acute Assessment and Plan: Patent stent to proximal and distal RCA, high-grade 99% ostial stenosis of the circumflex and 90% stenosis in the circumflex after bifurcation of large OM branch, mild diffuse disease in the LAD. Transfer to [facility] arranged for high-grade PCI given proximity to left main patient's comorbidities. Discussed this situation once again with the patient who verbalized understanding and agreed. No anginal symptoms at present. (3) Type 1 diabetes mellitus with hyperglycemia: Code(s): E10.65 - Type 1 diabetes mellitus with hyperglycemia Status: Acute Assessment and Plan: Per primary service. Blood sugars elevated likely secondary to steroids given for pre treatment for iodinated contrast allergy (4) Hypoxia: Code(s): R09.02 - Hypoxemia Status: Acute Assessment and Plan: Clinically, while multifactorial appears secondary to possible mild volume overload worsening hypoxia secondary to intermittent CPAP use, hyperglycemia and underlying high-grade CAD. (5) Obstructive sleep apnea: Code(s): G47.33 - Obstructive sleep apnea (adult) (pediatric) Status: Acute Assessment and Plan: Compliance with CPAP. (6) ESRD (end stage renal disease) on dialysis: Code(s): N18.6 - End stage renal disease; Z99.2 - Dependence on renal dialysis Status: Acute Assessment and Plan: Peritoneal dialysis per Nephrology. Continue Lasix 120 mg twice daily. (7) Essential hypertension: Code(s): I10 - Essential (primary) hypertension Status: Chronic Assessment and Plan: Stable on antihypertensive therapy. Continue current regimen. Subjective Date/time seen: Date of service: 06/04/22 14:02 Follow-up for NSTEMI, CAD Patient denies chest pain or shortness of breath. Overnight he required increased O2 supplementation now 4 L He was also hallucinating and was intermittently found to be off BiPAP. He does not recall these events. He is feeling better this morning but admits to fatigue. He is answering all questions appropriately. He admits he has more edema than usual. Blood sugars have been significantly elevated and he has an anion gap. Sodium has declined likely secondary to hyperglycemia. Review of Systems Constitutional: Constitutional: Reports lethargy Eyes: Eyes: Reports no additional eye complaints ENT: Reports system reviewed and no additional complaints, except as documented Cardiovascular: Cardiovascular: Reports as per HPI Respiratory: Respiratory: Reports no additional respiratory complaints Gastrointestinal: Gastrointestinal: Reports as per HPI, Reports abdominal pain and Reports diarrhea Musculoskeletal: Musculoskeletal: Reports no additional musculoskeletal complaints Integumentary/Breasts: Skin/Breast: Reports system reviewed and no additional complaints, except as docu Neurologic: Reports system reviewed and no additional complaints, except as documented Endocrine: Endocrine: Reports no additional endocrine complaints Hematologic/Lymphatic: Hematologic/Lymphatic: Reports no additional hematologic/lymphatic complaints Allergic/Immunologic: Allergic/Immunologic: Reports no additional allergic/immunologic complaints Exam Const: General: uncomfortable Other: Morbidly obese white male supine in bed head of the bed elevated about 45? no apparent distress appears fatigued answering questions appropriately HENMT:
[2022-06-04 15:08] LABS: Alveolar/Arterial O2 Gradient 119.5 mmHg; Base Excess ABG -3.8 mEq/l (+/-2.0); Fractional Inspired Oxygen 32 %; HCO3 ABG 20.9 mEq/l (22.0-26.0); Oxygen Content ABG 13.2 %vol (16.0-22.0); Oxygen Saturation ABG 92.6 % (95.0-100.0); Oxyhemoglobin 90.5 % THb (90.0-100.0); PCO2 ABG 36.8 mmHg (35.0-45.0); PO2 ABG 65.6 mmHg (80.0-100.0); PO2 FiO2 Ratio Arterial Blood 2.05 %; Total Hemoglobin 10.3 g/dL (12.0-18.0); pH ABG 7.373 (7.350-7.450)
[2022-06-04 15:10] LABS: Device NASAL CANNULA; Modified Allen's Test Pass; Site Drawn RIGHT RADIAL
--- NOTE | 2022-06-04 17:22 | PM.TDS ---
Transfer Discharge Sum: Prov Provider Date of admission: 06/03/22 07:51 Primary care physician: Aditya Castro, Admitting clinician: Mario Goode MD Consults: 06/02/22 Consult to Physician Routine Comment: Consulting Provider: Leandro Reyes call center supervisor/MD group to consult: manager technology Reason for consultation: pd Has provider been notified: Yes Consult to Physician Routine Comment: Consulting Provider: Nisha Akbar Reason for consultation: NSTEMI Has provider been notified: Yes DS: Admitting Diagnosis Discharge Date 06/04/22 Admitting Diagnosis Chest pain DS: Discharge Diagnosis Discharge Diagnosis (1) Acute non-ST elevation myocardial infarction (NSTEMI): Code(s): I21.4 - Non-ST elevation (NSTEMI) myocardial infarction Status: Acute (2) Pneumonia: Code(s): J18.9 - Pneumonia, unspecified organism Status: Acute (3) Type 1 diabetes mellitus with hyperglycemia: Code(s): E10.65 - Type 1 diabetes mellitus with hyperglycemia Status: Acute (4) Hypoxia: Code(s): R09.02 - Hypoxemia Status: Acute (5) Abdominal pain: Code(s): R10.9 - Unspecified abdominal pain Status: Acute (6) Congestive heart failure: Code(s): I50.9 - Heart failure, unspecified Status: Acute (7) Coronary artery disease: Code(s): I25.10 - Atherosclerotic heart disease of [place] coronary artery without angina pectoris Status: Acute (8) End stage renal disease on dialysis: Code(s): N18.6 - End stage renal disease; Z99.2 - Dependence on renal dialysis Status: Acute (9) Essential hypertension: Code(s): I10 - Essential (primary) hypertension Status: Chronic (10) History of sleep apnea: Code(s): Z86.69 - Personal history of other diseases of the nervous system and sense organs Status: Chronic Transfer Discharge Sum: Med Medications Active and Home Medications: Home Medications aspirin 81 mg chewable tablet 81 mg PO DAILY 06/04/19 [History Confirmed 06/02/22] calcitriol 0.25 mcg capsule 0.25 mcg PO QAM 06/04/19 [History Confirmed 06/02/22] clopidogrel 75 mg tablet 75 mg PO DAILY 06/04/19 [History Confirmed 06/02/22] ergocalciferol (vitamin D2) 1,250 mcg (50,000 unit) capsule (Vitamin D2) 50,000 unit PO WEEKLY 06/04/19 [History Confirmed 06/02/22] hydralazine 100 mg tablet 100 mg PO Q8H 06/04/19 [History Confirmed 06/02/22] nitroglycerin 0.4 mg sublingual tablet 0.4 mg sublingual Q5-15M PRN Chest Pain 06/04/19 [History Confirmed 06/02/22] ezetimibe 10 mg tablet (Zetia) 10 mg PO DAILY 09/09/19 [History Confirmed 06/02/22] isosorbide mononitrate 30 mg tablet,extended release 24 hr 30 mg PO DAILY 09/09/19 [History Confirmed 06/02/22] metoprolol tartrate 100 mg tablet 100 mg PO Q12H 09/09/19 [History Confirmed 06/02/22] ranolazine 500 mg tablet,extended release,12 hr (Ranexa) 500 mg PO Q12H 09/24/19 [History Confirmed 06/02/22] cetirizine 10 mg tablet (All Day Allergy (cetirizine)) 10 mg PO DAILY 12/26/19 [History Confirmed 06/02/22] furosemide 80 mg tablet 120 mg PO BID 02/02/20 [History Confirmed 06/02/22] calcium acetate(phosphat bind) 667 mg capsule 667 mg PO QID 03/31/20 [History Confirmed 06/02/22] famotidine 40 mg tablet 40 mg PO HS 03/31/20 [History Confirmed 06/02/22] atorvastatin 80 mg tablet 80 mg PO HS 11/26/20 [History Confirmed 06/02/22] colchicine 0.6 mg tablet (Colcrys) 0.6 mg PO QMWF 11/26/20 [History Confirmed 06/02/22] meloxicam 7.5 mg tablet 7.5 mg PO DAILY PRN Pain (Scale Score 4-6) 11/26/20 [History Confirmed 06/02/22] omeprazole 20 mg capsule,delayed release 20 mg PO QAM 11/26/20 [History Confirmed 06/02/22] clonidine HCl 0.2 mg tablet 0.3 mg PO Q8HR 02/01/21 [History Confirmed 06/02/22] gemfibrozil 600 mg tablet 600 mg PO BID 05/15/21 [History Confirmed 06/02/22] Novolog U-100 Insulin aspart 100 unit/mL subcutaneous solution (insulin aspart U-100) See Rx Instructions .Route .CO
--- NOTE | 2022-06-04 17:32 | PC.NURSE ---
Report given to LUAN Castellano with [facility] at 1725. Patient to transfer to [facility].
[2022-06-04 17:42] LABS: Glucose Point of Care 300 mg/dl (65-105)
[2022-06-04] MEDS: INSULIN ASPART (*BKC) 100 UNITS/ML SUB-Q (17:46)
[2022-06-04] MEDS: INSULIN ASPART (*BKC) 100 UNITS/ML 18 UNITS SUB-Q (17:47)
[2022-06-04] MEDS: FAMOTIDINE 20 MG TABLET 40 MG PO (20:01)
[2022-06-04] MEDS: ATORVASTATIN 40 MG TABLET 80 MG PO (20:01)
[2022-06-04] MEDS: TERAZOSIN HCL 1 MG CAPSULE 2 MG PO (20:02)
[2022-06-06 08:28] LABS: Hepatitis B Surface Antigen Negative (Negative)
[2022-06-06 12:52] LABS: Hepatitis B Surface Anti Res Positive
[2022-06-07 01:49] LABS: Pneumococcal Antigen Urine Not Detected (Not Detected)
[2022-06-08 19:24] LABS: Legionella pneumophila Ag Ur Not Detected (Not Detected)
--- NOTE | 2022-06-13 11:58 | PC.NURSE ---
Pneumococcal and Legionella Ag are both negative. Hep B Ag is negative. Hep B AB is positive. Dr. Celia king.
== END 2022-06-04 20:13 | disposition short-term general hospital (02) | DRG 280 ==
LOC: ANHED 19:06 → ANHIMU 20:40
PROVIDERS: Emergency Medicine; Internal Medicine; Internal Medicine Cardiovascular Disease; Internal Medicine Nephrology; Nurse Practitioner; Physician Assistant; Specialist; Admitting Provider Family Medicine; Emergency Provider General Practice; PCP Family Medicine; Visit Provider Internal Medicine
PROC: 4A023N7 Measurement of Cardiac Sampling and Pressure, Left Heart, Percutaneous Approach (ICD-10-PCS; CPT 93454; principal; 2022-06-03 11:00)
DX: I21.4 Non-ST elevation (NSTEMI) myocardial infarction (principal); J18.9 Pneumonia, unspecified organism; N18.6 End stage renal disease; I13.2 Hypertensive heart and chronic kidney disease with heart failure and with stage 5 chronic kidney disease, or end stage renal disease; N25.81 Secondary hyperparathyroidism of renal origin; I50.9 Heart failure, unspecified; I25.10 Atherosclerotic heart disease of native coronary artery without angina pectoris; I44.4 Left anterior fascicular block; I48.0 Paroxysmal atrial fibrillation; D63.1 Anemia in chronic kidney disease; E10.42 Type 1 diabetes mellitus with diabetic polyneuropathy; E10.319 Type 1 diabetes mellitus with unspecified diabetic retinopathy without macular edema; E10.22 Type 1 diabetes mellitus with diabetic chronic kidney disease; E78.5 Hyperlipidemia, unspecified; N25.0 Renal osteodystrophy; K80.20 Calculus of gallbladder without cholecystitis without obstruction; K21.9 Gastro-esophageal reflux disease without esophagitis; M19.90 Unspecified osteoarthritis, unspecified site; M10.9 Gout, unspecified; R09.02 Hypoxemia; G47.33 Obstructive sleep apnea (adult) (pediatric); F41.9 Anxiety disorder, unspecified; Z20.822 Contact with and (suspected) exposure to COVID-19; Z79.82 Long term (current) use of aspirin; Z99.2 Dependence on renal dialysis; Z95.5 Presence of coronary angioplasty implant and graft
CPT/HCPCS: 36415; 36600; 71046; 74176; 76705; 80053; 82805; 82947; 82948; 83036; 83690; 83735; 83880; 84100; 84443; 84484; 85025; 85610; 85730; 86706; 87340; 87449; 87502; 87899; 90945; 93005; 93454; 93970; 94660; 96365; 96366; 96368; 96375; 99285; A9270; C1887; C1894; C9803; G0378; J0456; J0696; J1644; J1815; J2250; J2405; J2930; J3010; J7040; U0003; U0005

== ENCOUNTER 2022-07-23 12:24 | Inpatient (IN) | payer MEDICARE, MEDICAID, SELFPAY ==
[2022-07-23] VITALS (9 sets, daily range): BP systolic 100–117; BP diastolic 59–75; PULSE 79–96; RESP 16–20; TEMP 36.1–36.7; O2SAT 98–100; BMI 37.3
--- NOTE | ~2022-07-23 | US_ITS ---
EXAMINATION:US venous doppler LE INDICATION:Left lower extremity pain and swelling TECHNIQUE: Multiple grayscale, color flow and Doppler images of the left lower extremity deep venous systems were obtained and reviewed. COMPARISON:Ultrasound dated 06/04/2022 FINDINGS: There is occlusive deep venous thrombosis throughout the left lower extremity veins. IMPRESSION: 1: Occlusive deep venous thrombosis throughout the left lower extremity. Reviewed, dictated and finalized at location A. 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
--- NOTE | 2022-07-23 13:12 | ED.LOWEXIN ---
HPI - Extremity Injury (Lower) General Chief Complaint: Extremity Injury, Lower Stated Complaint: left leg swelling Time Seen by Provider: 07/23/22 13:12 Source: patient and EMS Mode of arrival: EMS Limitations: no limitations History of Present Illness HPI Narrative: Patient complaining of pain and swelling of the left lower extremity started last night. History of diabetes, peritoneal dialysis, coronary stents, currently on aspirin and Plavix. He denies any fever, chills, nausea, vomiting, chest pain or shortness of breath Related Data Home Medications Medication Instructions Recorded Confirmed aspirin 81 mg chewable tablet 81 mg PO DAILY 06/04/19 06/02/22 calcitriol 0.25 mcg capsule 0.25 mcg PO QAM 06/04/19 06/02/22 clopidogrel 75 mg tablet 75 mg PO DAILY 06/04/19 06/02/22 ergocalciferol (vitamin D2) 1,250 50,000 unit PO WEEKLY 06/04/19 06/02/22 mcg (50,000 unit) capsule (Vitamin D2) hydralazine 100 mg tablet 100 mg PO Q8H 06/04/19 06/02/22 nitroglycerin 0.4 mg sublingual 0.4 mg sublingual Q5-15M PRN Chest 06/04/19 06/02/22 tablet Pain ezetimibe 10 mg tablet (Zetia) 10 mg PO DAILY 09/09/19 06/02/22 isosorbide mononitrate 30 mg 30 mg PO DAILY 09/09/19 06/02/22 tablet,extended release 24 hr metoprolol tartrate 100 mg tablet 100 mg PO Q12H 09/09/19 06/02/22 ranolazine 500 mg tablet,extended 500 mg PO Q12H 09/24/19 06/02/22 release,12 hr (Ranexa) cetirizine 10 mg tablet (All Day 10 mg PO DAILY 12/26/19 06/02/22 Allergy (cetirizine)) furosemide 80 mg tablet 120 mg PO BID 02/02/20 06/02/22 calcium acetate(phosphat bind) 667 667 mg PO QID 03/31/20 06/02/22 mg capsule famotidine 40 mg tablet 40 mg PO HS 03/31/20 06/02/22 atorvastatin 80 mg tablet 80 mg PO HS 11/26/20 06/02/22 colchicine 0.6 mg tablet (Colcrys) 0.6 mg PO QMWF 11/26/20 06/02/22 meloxicam 7.5 mg tablet 7.5 mg PO DAILY PRN Pain (Scale 11/26/20 06/02/22 Score 4-6) omeprazole 20 mg capsule,delayed 20 mg PO QAM 11/26/20 06/02/22 release clonidine HCl 0.2 mg tablet 0.3 mg PO Q8HR 02/01/21 06/02/22 gemfibrozil 600 mg tablet 600 mg PO BID 05/15/21 06/02/22 metolazone 5 mg tablet 5 mg PO DAILY 12/09/21 06/02/22 albuterol sulfate 90 mcg/actuation 2 puff inhalation DAILY PRN 06/02/22 06/02/22 aerosol inhaler Shortness Of Breath Or Wheezing amlodipine 10 mg tablet 10 mg PO DAILY 06/02/22 06/02/22 docusate sodium 100 mg capsule 100 mg PO DAILY 06/02/22 06/02/22 icosapent ethyl 1 gram capsule 1 g PO BID 06/02/22 06/02/22 (Vascepa) terazosin 2 mg capsule 2 mg PO HS 06/02/22 06/02/22 Allergies Allergy/AdvReac Type Severity Reaction Status Date / Time allopurinol Allergy Severe Other Verified 06/02/22 19:04 iohexol Allergy Severe Difficulty Verified 06/02/22 19:04 [From CONTRAST - CT, XRAY] Breathing ticagrelor Allergy Intermediate Rash Verified 06/02/22 19:04 Review of Systems Review of Systems: All systems reviewed & are unremarkable except as noted in HPI and below PMFSH Past Medical History Medical History Anemia in chronic kidney disease Angina pectoris, unspecified Anxiety Arthritis Bronchitis Chronic renal failure Congestive heart failure Echocardiogram May 2017 EF of 50% with hypokinetic apical, inferior and basal inferior lateral segment, mild enlargement of left atrium. Coronary artery disease With history of several stents. Followed by [facility]. Deep venous thrombosis Chronic right popliteal DVT. Diabetes mellitus with hyperosmolarity without hyperglycemic hyperosmolar nonketotic coma Diabetic peripheral neuropathy Diabetic retinopathy DKA (diabetic ketoacidoses) DKA (diabetic ketoacidoses) DKA (diabetic ketoacidosis) Dyspnea Elevated d-dimer Elevated LFTs End-stage renal disease on peritoneal dialysis Essential hypertension Fracture left lower ext Gastroesophageal reflux disease Gout History of DVT (deep vein thrombosis) Behind right knee chr
[2022-07-23 13:40] LABS: Basophils Percent Auto 0.6 % (0.2-1.2); Eosinophils Absolute Auto 0.2 K/mm3 (0-0.3); Eosinophils Percent Auto 3.5 % (0-4.4); Hemoglobin 12.4 g/dL (14.0-18.0); Immature Granulocyte Absolute 0.01 K/mm3 (0.00-0.031); Immature Granulocyte Percent A 0.2 % (0-0.5); Lymphocytes Absolute Auto 1.65 K/mm3 (0.9-3.2); Lymphocytes Percent Auto 25.3 % (18.3-44.2); Mean Corpuscular HGB Conc 32.6 g/dl (32-36); Mean Corpuscular Hemoglobin 30.2 pg (26-34); Mean Corpuscular Volume 92.7 fl (80-100); Mean Platelet Volume 9.7 fl (7.4-10.4); Monocytes Absolute Auto 0.8 K/mm3 (0.1-0.6); Monocytes Percent Auto 12.9 % (2.6-8.5); Neutrophils Absolute Auto 3.7 K/mm3 (1.3-6.7); Neutrophils Percent Auto 57.5 % (45.5-73.1); Platelet Count Result 187 k/mm3 (150-375); Red Cell Distribution Width 14.6 % (11.5-14.5); White Blood Count 6.5 K/mm3 (4.5-10.0)
[2022-07-23 13:49] LABS: Lactic Acid Reflex 2.2 mmol/L (0.7-2.0)
[2022-07-23 13:51] LABS: Alanine Aminotransferase 44 U/L (6-50); Albumin Level 4.3 g/dL (3.5-5.1); Alkaline Phosphatase 98 U/L (38-126); Anion Gap 8 mmol/L (8-16); Aspartate Amino Transferase 40 U/L (17-59); Bilirubin,Total 0.8 mg/dL (0.2-1.3); Blood Urea Nitrogen 43 mg/dL (9-20); Carbon Dioxide 26 mmol/L (22-30); Chloride 94 mmol/L (98-107); Estimated CRCL calculation 11 ml/min; Estimated Glomerular Filt Rate 6; Glucose 299 mg/dL (65-110); Potassium 3.8 mmol/L (3.4-5.0); Sodium 128 mmol/L (137-145)
--- NOTE | 2022-07-23 14:44 | PC.NURSE ---
CHILO FROM DR. JUAREZ FOR 0.5MG DILAUDID AND 4MG ZOFRAN
[2022-07-23] MEDS: ONDANSETRON INJ 4 MG/2 ML VIAL IV PUSH (15:04)
[2022-07-23] MEDS: HYDROmorphone HCL INJ (*CRX) 1 MG/ML SYR 0.5 MG IV PUSH ×2 (15:05→20:05)
[2022-07-23 15:16] LABS: SARS-CoV-2 RNA PCR Negative
[2022-07-23] MEDS: HEPARIN SODIUM 5,000 UNITS/ML VIAL 7500 UNITS IV PUSH (15:24)
[2022-07-23] MEDS: HEPARIN SOD/D5W 100 UNITS/ML 25,000 UNITS/250 ML BAG 15 UNITS IV CONT (15:24)
--- NOTE | 2022-07-23 15:42 | PM.IMHP ---
H&P: HPI History of Present Illness Date/Time: 07/23/22 15:42 Chief Complaint: Left leg pain and swelling Narrative: This is a 51-year-old male patient who has a history of end-stage renal disease with peritoneal dialysis daily. The patient is also diabetic and has had a history of DVTs in the past. The patient stated that he has had 2 DVTs in the past and had been on Xarelto but has been off of it. The patient has multiple coronary stents and is on aspirin and Plavix. His H&H is 12.4 and 38.0. Sodium 120. BUN 33 creatinine 9.2. Blood sugar 299. Lactic 2.2. COVID is negative. Venous Doppler was read as occlusive deep venous thrombus throughout the left lower extremity. The patient was started on heparin drip and given Dilaudid well as Zofran. Patient's lactic went up to 3.7. The patient initially was thought to have cellulitis and was placed on antibiotics. However they since have been stopped since he was found to be positive for DVT. The patient is being admitted to inpatient status date of service is 07/23/2022. Review of Systems Review of Systems: See HPI All systems reviewed & are unremarkable except as noted in HPI and below Constitutional: Constitutional: Reports as per HPI and Reports no additional constitutional complaints Eyes: Eyes: Reports as per HPI and Reports no additional eye complaints ENT: Reports system reviewed and no additional complaints, except as documented and Reports Normal hearing present Cardiovascular: Cardiovascular: Reports no additional cardiovascular complaints Respiratory: Respiratory: Reports no additional respiratory complaints and Reports no additional respiratory complaints Gastrointestinal: Gastrointestinal: Reports as per HPI and Reports no additional gastrointestinal complaints Musculoskeletal: Musculoskeletal: Reports no additional musculoskeletal complaints Integumentary/Breasts: Skin/Breast: Reports system reviewed and no additional complaints, except as docu and Reports as per HPI Neurologic: Reports system reviewed and no additional complaints, except as documented, Reports as per HPI and Reports Normal hearing present Psychiatric: Psychiatric: Reports no additional psychiatric complaints and Reports as per HPI Endocrine: Endocrine: Reports no additional endocrine complaints Hematologic/Lymphatic: Hematologic/Lymphatic: Reports no additional hematologic/lymphatic complaints Allergic/Immunologic: Allergic/Immunologic: Reports no additional allergic/immunologic complaints PENDING SALE TO [facility] Past Medical History Medical History (Updated 07/23/22 @ 18:02 by Clarice Christian NP) Acute non-ST elevation myocardial infarction (NSTEMI) Anemia in chronic kidney disease Angina pectoris, unspecified Anxiety Arthritis Atypical chest pain Bronchitis Chest pain Chest pain Chronic renal failure Congestive heart failure Echocardiogram May 2017 EF of 50% with hypokinetic apical, inferior and basal inferior lateral segment, mild enlargement of left atrium. Coronary artery disease Coronary artery disease With history of several stents. Followed by [facility]. Deep venous thrombosis Chronic right popliteal DVT. Diabetes mellitus with hyperosmolarity without hyperglycemic hyperosmolar nonketotic coma Diabetic peripheral neuropathy Diabetic retinopathy DKA (diabetic ketoacidoses) DKA (diabetic ketoacidoses) DKA (diabetic ketoacidosis) DKA (diabetic ketoacidosis) DKA, type 1 Dyspnea Elevated d-dimer Elevated d-dimer Elevated LFTs Elevated troponin End-stage renal disease on peritoneal dialysis Essential hypertension Fluid overload Fracture left lower ext Gastroesophageal reflux disease Gout History of DVT (deep vein thrombosis) Behind right knee chronic Hyperlipidemia Hypokalemia Hypokalemia Hyponatremia Lower extremity edema Obstructive sleep apnea With inconsistent CPAP use. Paroxysmal atrial fibrillation The patient denies Peritoneal dialysis cathete
[2022-07-23 16:37] LABS: Reflex Lactic Acid Yes or No Add Lactic
[2022-07-23 16:53] LABS: INR 1.1; Partial Thromboplastin Time 27.9 SECONDS (22.3-36.8); Prothrombin Time 13.6 Seconds (11.1-14.7)
[2022-07-23 17:32] LABS: Lactic Acid 3.7 mmol/L (0.7-2.0)
--- NOTE | 2022-07-23 17:39 | PC.NURSE ---
This patient, Juvenal Daigle Jr., was admitted to IMU Room 211-01. Patient/family oriented to hospital policies and general routines including ID bracelet, bed and alarms, visiting hours, pain management, procedures, bathroom and other care routines, personal items, smoking policy, room service/diet, and visiting hours. Information on how to activate the Rapid Response Team has been discussed. Patient/Family are encouraged to report perceived risks to care and to ask questions if they do not understand what they are told or what they should do.
[2022-07-23 17:56] LABS: Glucose Point of Care 178 mg/dl (65-105)
[2022-07-23 18:43] LABS: Hepatitis B Surface Anti Res Positive; Hepatitis B Surface Antigen Negative (Negative)
[2022-07-23 20:35] LABS: Glucose Point of Care 154 mg/dl (65-105)
[2022-07-23] MEDS: ATORVASTATIN 40 MG TABLET 80 MG PO (21:36)
[2022-07-23] MEDS: METOPROLOL TARTRATE 12.5 MG TABLET PO (21:36)
[2022-07-23] MEDS: RANOLAZINE 500 MG TAB.ER.12H PO (21:36)
[2022-07-23] MEDS: OMEGA 3 POLYUNSAT FATTY ACIDS 1 GM CAP PO (21:36)
[2022-07-23] MEDS: FUROSEMIDE 40 MG TABLET 120 MG PO (21:37)
[2022-07-23 23:20] LABS: Partial Thromboplastin Time 161.2 SECONDS (22.3-36.8)
--- NOTE | 2022-07-23 23:39 | PCRCNOTE ---
Patient stated that he did not want to wear CPAP tonight and that maybe he would try it tomorrow night. RT explained importance of wearing machine and we would follow up tomorrow
[2022-07-24] VITALS (14 sets, daily range): BP systolic 98–122; BP diastolic 56–70; PULSE 74–91; RESP 16–20; TEMP 36.5–36.9; O2SAT 96–100
[2022-07-24 01:03] LABS: Hemoglobin A1C 6.8 % (<5.7)
[2022-07-24 05:17] LABS: Basophils Percent Auto 0.6 % (0.2-1.2); Eosinophils Absolute Auto 0.2 K/mm3 (0-0.3); Eosinophils Percent Auto 3.2 % (0-4.4); Hematocrit 35.8 % (42.0-52.0); Hemoglobin 11.7 g/dL (14.0-18.0); Immature Granulocyte Absolute 0.02 K/mm3 (0.00-0.031); Immature Granulocyte Percent A 0.3 % (0-0.5); Lymphocytes Percent Auto 28.4 % (18.3-44.2); Mean Corpuscular HGB Conc 32.7 g/dl (32-36); Mean Corpuscular Hemoglobin 30.5 pg (26-34); Mean Corpuscular Volume 93.5 fl (80-100); Monocytes Absolute Auto 0.8 K/mm3 (0.1-0.6); Monocytes Percent Auto 12.5 % (2.6-8.5); Neutrophils Absolute Auto 3.5 K/mm3 (1.3-6.7); Platelet Count Result 171 k/mm3 (150-375); Red Blood Count 3.83 M/mm3 (4.6-6.20); Red Cell Distribution Width 14.7 % (11.5-14.5); White Blood Count 6.3 K/mm3 (4.5-10.0)
[2022-07-24 05:26] LABS: INR 1.1; Prothrombin Time 13.9 Seconds (11.1-14.7)
[2022-07-24 05:27] LABS: Partial Thromboplastin Time 61.9 SECONDS (22.3-36.8)
[2022-07-24 05:35] LABS: Potassium 3.5 mmol/L (3.4-5.0)
[2022-07-24 05:39] LABS: Alanine Aminotransferase 37 U/L (6-50); Albumin Level 3.8 g/dL (3.5-5.1); Alkaline Phosphatase 84 U/L (38-126); Anion Gap 9 mmol/L (8-16); Aspartate Amino Transferase 36 U/L (17-59); Bilirubin,Total 0.6 mg/dL (0.2-1.3); Blood Urea Nitrogen 44 mg/dL (9-20); Calcium 8.6 mg/dL (8.4-10.2); Carbon Dioxide 29 mmol/L (22-30); Chloride 91 mmol/L (98-107); Estimated CRCL calculation 11 ml/min; Estimated Glomerular Filt Rate 6; Glucose 270 mg/dL (65-110); Phosphorus 6.3 mg/dL (2.5-4.5); Sodium 129 mmol/L (137-145)
[2022-07-24] MEDS: HEPARIN SODIUM 5,000 UNITS/ML VIAL 3500 UNITS IV PUSH ×2 (05:39→18:00)
[2022-07-24 07:33] LABS: Glucose Point of Care 256 mg/dl (65-105)
--- NOTE | 2022-07-24 07:53 | PM.IMPN ---
Progress Note: A&P Assessment and Plan (1) Deep vein thrombosis: Code(s): I82.409 - Acute embolism and thrombosis of unspecified deep veins of unspecified lower extremity Status: Acute Assessment and Plan: Patient presented to the ED with c/o LLE swelling. He was recently hospitalized in 06/02-06/04 at our facility and transferred for high risk coronary angioplasty. He is currently on DAPT therapy. He has also had prior DVTs and was previously treated with Xarelto. Given this the patient requires triple antithrombotic therapy, making him high risk for bleeding. He will need long-term anticoagulation and 6-12 months DAPT therapy at a [facility]. Continue the patient was started on heparin drip. Continue heparin drip for now. Patient was on Eliquis previously this was discussed with his veterinary laboratory diagnostician and plan to discharge patient on Eliquis. He will need long-term management given this is the 2nd to 3rd DVT unprovoked. He reports prior colonoscopy 3 years ago that was normal. He is a nonsmoker. He denies evaluation of prostate recently will check PSA Hematology, Dr. Schmid consulted and patient will benefit coagulation workup (2) Coronary artery disease: Qualifiers: Coronary Disease-Associated Artery/Lesion type: [place] artery [place] vs. transplanted heart: [place] heart Associated angina: with stable angina Qualified Code(s): I25.118 - Atherosclerotic heart disease of [place] coronary artery with other forms of angina pectoris Code(s): I25.10 - Atherosclerotic heart disease of [place] coronary artery without angina pectoris Status: Chronic Assessment and Plan: Chronic, patient had recent drug-eluting stents placed in May of this year at [facility]. Has had 4 prior stents in 2019. Continue aspirin, Plavix, statin, Zetia, Imdur, Ranexa (3) Type 1 diabetes mellitus with hyperglycemia, with long-term current use of insulin: Code(s): E10.65 - Type 1 diabetes mellitus with hyperglycemia Status: Chronic Assessment and Plan: Chronic, A1c 6.8% continue patient's insulin pump with settings 1.7 units/hour 8am to 8 pm, then 5.7 units/hour 8 pm to 8 am. Monitor blood sugars (4) End stage renal disease on dialysis: Code(s): N18.6 - End stage renal disease; Z99.2 - Dependence on renal dialysis Status: Chronic Assessment and Plan: Dr. Reyes has been consulted. Patient is on peritoneal dialysis nightly. (5) Obstructive sleep apnea: Code(s): G47.33 - Obstructive sleep apnea (adult) (pediatric) Status: Chronic Assessment and Plan: Chronic, stable. Continue with home settings for the CPAP (6) Essential hypertension: Code(s): I10 - Essential (primary) hypertension Status: Chronic Assessment and Plan: Chronic, stable continue amlodipine and hydralazine at home doses as BP tolerates (7) Congestive heart failure: Code(s): I50.9 - Heart failure, unspecified Status: Acute Assessment and Plan: Chronic, diastolic dysfunction, not in acute exacerbation. 11/2021 echocardiogram showed normal LV systolic function with EF greater than 70%, grade 1 diastolic dysfunction, moderate left atrial enlargement, and mild aortic stenosis. Monitor volume status. Continue daily weights. Continue metoprolol, Imdur, furosemide, and Ranexa. (8) Anemia in chronic kidney disease: Code(s): N18.9 - Chronic kidney disease, unspecified; D63.1 - Anemia in chronic kidney disease Status: Chronic Assessment and Plan: Chronic, secondary to CKD. H&H at baseline. Monitor while inpatient and on triple antithrombotic therapy. Plan Code status: Full code Disposition: Inpatient, downgrade to [facility] with telemetry Discharge disposition: Home when medically stable Time Spent With Patient Time with patient: 25 - 35 minutes Subjective Date/time seen: 07/24/22 07:53 He reports pain and
--- NOTE | 2022-07-24 08:30 | PM.CNNEP ---
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 Elevated lactate at admission: Unclear etiology, probably perfusion related Hyponatremia in the setting of ESRD Plan: -peritoneal with dialysis as per orders, continue supervision, although is done -otherwise plans as stated above -anticoagulation with transition to oral from intravenous heparin -follow-up History of Present Illness Reason for Consult Consult date: 07/24/22 Chief Complaint Chief complaint: Left Lower Extremity Deep Vein Thrombosis History of Present Illness Narrative: 51-year-old male who has ESRD and is on peritoneal dialysis. Underlying problems include diabetes mellitus on insulin, hypertension, atherosclerotic vascular disease, obstructive sleep apnea on CPAP, and recent non STEMI and was transferred to [facility] where he went into cardiogenic shock acute hypoxemic respiratory failure requiring ventilator support, atrial fibrillation.. From a coronary artery disease perspective, patient was noted to have prior coronary stents, but in May this year when he was transferred to [place] he was noted to have significance that disease of the left circumflex up to 90%. He had complex PCI on June 07 and had stent in left circumflex and obtuse marginal bifurcation, coarse then complicated by cardiogenic shock. His course was also complicated by development of acute respiratory failure hypoxemia placing on a ventilator. He was transitioned to in ICU hemodialysis temporarily and now is back on peritoneal dialysis. He also had developed atrial fibrillation. Post cardiac catheterization transthoracic echocardiogram demonstrated ejection fraction 65% with grade 1 diastolic heart failure. He is on an insulin pump for control of his diabetes mellitus. The patient has a prior history of deep vein thrombosis.He is on dual antiplatelet therapy. He was on Eliquis in the past but states that it was taken off 2 years ago. He now presents with acute deep vein thrombosis throughout left lower extremity veins as described by the venous Doppler study. He has left lower extremity swelling. Came on suddenly yesterday. Some discomfort. He does not feel that has been much of a difference in swelling since coming in yesterday. Has been initiated on an intravenous heparin drip. He denies any chest pains. No shortness of breath. He has been active at home. No fall trauma. Denies any fevers or chills. He feels a bit nauseated. His appetite was decreased. Is admitted for anticoagulation. We we were asked to meet his ongoing peritoneal dialysis needs. Peritoneal dialysis was initiated. Six hundred forty-seven now is off ultrafiltrate obtained. Review of Systems Review of Systems: remainder of systems negative [facility] Past Medical History Medical History (Updated 07/23/22 @ 18:02 by Clarice Christian NP) Acute non-ST elevation myocardial infarction (NSTEMI) Anemia in chronic kidney disease Angina pectoris, unspecified Anxiety Arthritis Atypical chest pain Bronchitis Chest pain Chest pa
[2022-07-24] MEDS: ONDANSETRON INJ 4 MG/2 ML VIAL IV PUSH (09:51)
[2022-07-24] MEDS: HEPARIN SOD/D5W 100 UNITS/ML 25,000 UNITS/250 ML BAG 14 UNITS IV CONT (10:34)
[2022-07-24 12:08] LABS: Glucose Point of Care 227 mg/dl (65-105)
[2022-07-24] MEDS: ASPIRIN 81 MG CHEWABLE TABLET PO (12:29)
[2022-07-24] MEDS: CALCIUM ACETATE 667 MG TABLET PO ×2 (12:29→17:51)
[2022-07-24] MEDS: OMEGA 3 POLYUNSAT FATTY ACIDS 1 GM CAP PO ×2 (12:30→17:51)
[2022-07-24] MEDS: calcitrioL 0.25 MCG CAPSULE PO (12:30)
[2022-07-24] MEDS: ISOSORBIDE MONONITRATE 30 MG TAB.ER.24H PO (12:30)
[2022-07-24] MEDS: EZETIMIBE 10 MG TABLET PO (12:31)
[2022-07-24] MEDS: METOPROLOL TARTRATE 12.5 MG TABLET PO ×2 (12:33→17:52)
[2022-07-24] MEDS: CLOPIDOGREL BISULFATE 75 MG TABLET PO (12:33)
[2022-07-24] MEDS: MELOXICAM 7.5 MG TABLET PO (12:33)
[2022-07-24] MEDS: LORATADINE 10 MG TABLET PO (12:34)
[2022-07-24] MEDS: RANOLAZINE 500 MG TAB.ER.12H PO (12:34)
[2022-07-24] MEDS: PANTOPRAZOLE 40 MG TABLET PO (12:34)
[2022-07-24 16:03] LABS: Glucose Point of Care 217 mg/dl (65-105)
[2022-07-24 17:50] LABS: Partial Thromboplastin Time 67.8 SECONDS (22.3-36.8)
[2022-07-24 20:34] LABS: Glucose Point of Care 218 mg/dl (65-105)
[2022-07-24] MEDS: ATORVASTATIN 40 MG TABLET 80 MG PO (20:57)
[2022-07-24 23:55] LABS: Partial Thromboplastin Time 125.8 SECONDS (22.3-36.8)
[2022-07-25] VITALS (11 sets, daily range): BP systolic 112–125; BP diastolic 53–66; PULSE 67–86; RESP 12–20; TEMP 36.2–36.6; O2SAT 96–100
[2022-07-25] MEDS: HEPARIN SOD/D5W 100 UNITS/ML 25,000 UNITS/250 ML BAG 14 UNITS IV CONT ×2 (03:11→21:26)
[2022-07-25 06:50] LABS: Basophils Percent Auto 0.5 % (0.2-1.2); Eosinophils Absolute Auto 0.3 K/mm3 (0-0.3); Eosinophils Percent Auto 5.3 % (0-4.4); Hemoglobin 11.3 g/dL (14.0-18.0); Immature Granulocyte Absolute 0.04 K/mm3 (0.00-0.031); Immature Granulocyte Percent A 0.7 % (0-0.5); Lymphocytes Absolute Auto 2.52 K/mm3 (0.9-3.2); Lymphocytes Percent Auto 42.7 % (18.3-44.2); Mean Corpuscular HGB Conc 33.2 g/dl (32-36); Mean Corpuscular Hemoglobin 31.5 pg (26-34); Mean Corpuscular Volume 94.7 fl (80-100); Mean Platelet Volume 9.4 fl (7.4-10.4); Monocytes Absolute Auto 0.7 K/mm3 (0.1-0.6); Monocytes Percent Auto 12.2 % (2.6-8.5); Neutrophils Absolute Auto 2.3 K/mm3 (1.3-6.7); Neutrophils Percent Auto 38.6 % (45.5-73.1); Platelet Count Result 161 k/mm3 (150-375); Red Blood Count 3.59 M/mm3 (4.6-6.20); Red Cell Distribution Width 14.6 % (11.5-14.5); White Blood Count 5.9 K/mm3 (4.5-10.0)
[2022-07-25 07:09] LABS: Albumin Level 3.5 g/dL (3.5-5.1); Anion Gap 12 mmol/L (8-16); Blood Urea Nitrogen 43 mg/dL (9-20); Calcium 8.4 mg/dL (8.4-10.2); Carbon Dioxide 30 mmol/L (22-30); Chloride 92 mmol/L (98-107); Estimated CRCL calculation 11 ml/min; Estimated Glomerular Filt Rate 6; Glucose 109 mg/dL (65-110); Magnesium 1.8 mg/dL (1.6-2.3); Phosphorus 6.5 mg/dL (2.5-4.5); Potassium 3.4 mmol/L (3.4-5.0); Sodium 134 mmol/L (137-145)
[2022-07-25 08:36] LABS: Glucose Point of Care 109 mg/dl (65-105)
[2022-07-25] MEDS: PANTOPRAZOLE 40 MG TABLET PO (08:49)
[2022-07-25] MEDS: ASPIRIN 81 MG CHEWABLE TABLET PO (08:49)
[2022-07-25] MEDS: OMEGA 3 POLYUNSAT FATTY ACIDS 1 GM CAP PO ×2 (08:49→16:43)
[2022-07-25] MEDS: EZETIMIBE 10 MG TABLET PO (08:50)
[2022-07-25] MEDS: MELOXICAM 7.5 MG TABLET PO (08:50)
[2022-07-25] MEDS: CALCIUM ACETATE 667 MG TABLET PO ×4 (08:50→20:40)
[2022-07-25] MEDS: LORATADINE 10 MG TABLET PO (08:50)
[2022-07-25] MEDS: CLOPIDOGREL BISULFATE 75 MG TABLET PO (08:50)
[2022-07-25] MEDS: ISOSORBIDE MONONITRATE 30 MG TAB.ER.24H PO (08:51)
[2022-07-25] MEDS: COLCHICINE 0.6 MG TABLET PO (08:51)
[2022-07-25] MEDS: calcitrioL 0.25 MCG CAPSULE PO (08:51)
[2022-07-25] MEDS: METOPROLOL TARTRATE 12.5 MG TABLET PO ×2 (08:51→16:43)
[2022-07-25] MEDS: RANOLAZINE 500 MG TAB.ER.12H PO ×2 (08:52→20:40)
[2022-07-25] MEDS: FUROSEMIDE 40 MG TABLET 120 MG PO (08:52)
--- NOTE | 2022-07-25 10:14 | PC.NURSE ---
This patient, Juvenal Daigle Jr., was transferred to [facility][ ] on 07/25/22 at 1014. Personal belongings sent with patient. Report given to [Nusrat ROLAND ]. Appropriate documentation sent with patient.
--- NOTE | 2022-07-25 10:17 | PM.IMPN ---
Progress Note: A&P Assessment and Plan (1) Deep vein thrombosis: Code(s): I82.409 - Acute embolism and thrombosis of unspecified deep veins of unspecified lower extremity Status: Acute Assessment and Plan: Patient presented to the ED with c/o LLE swelling. He was recently hospitalized in 06/02-06/04 at our facility and transferred for high risk coronary angioplasty. He is currently on DAPT therapy. He has also had prior DVTs and was previously treated with Xarelto. Given this the patient requires triple antithrombotic therapy, making him high risk for bleeding. He will need long-term anticoagulation and 6-12 months DAPT therapy at a [facility]. Continue the patient was started on heparin drip. Continue heparin drip for now. 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 He will need long-term management given this is the 2nd to 3rd DVT unprovoked. He reports prior colonoscopy 3 years ago that was normal. He is a nonsmoker. He denies evaluation of prostate recently will check PSA Hematology, Dr. Schmid consulted and patient will benefit coagulation workup PTT 90 and heparin drip therapeutic. Continue and transition to oral Eliquis tomorrow morning. Stop heparin drip with the first dose of Eliquis. He is high risk for bleeding. (2) Coronary artery disease: Qualifiers: Associated angina: with stable angina Coronary Disease-Associated Artery/Lesion type: [place] artery [place] vs. transplanted heart: [place] heart Qualified Code(s): I25.118 - Atherosclerotic heart disease of [place] coronary artery with other forms of angina pectoris Code(s): I25.10 - Atherosclerotic heart disease of [place] coronary artery without angina pectoris Status: Chronic Assessment and Plan: Chronic, patient had recent drug-eluting stents placed in May of this year at [facility]. Has had 4 prior stents in 2019. Continue aspirin, Plavix, statin, Zetia, Imdur, Ranexa (3) Type 1 diabetes mellitus with hyperglycemia, with long-term current use of insulin: Code(s): E10.65 - Type 1 diabetes mellitus with hyperglycemia Status: Chronic Assessment and Plan: Chronic, A1c 6.8% continue patient's insulin pump with settings 1.7 units/hour 8am to 8 pm, then 5.7 units/hour 8 pm to 8 am. Monitor blood sugars Stable (4) End stage renal disease on dialysis: Code(s): N18.6 - End stage renal disease; Z99.2 - Dependence on renal dialysis Status: Chronic Assessment and Plan: Dr. Reyes has been consulted. Patient is on peritoneal dialysis nightly. Stable (5) Obstructive sleep apnea: Code(s): G47.33 - Obstructive sleep apnea (adult) (pediatric) Status: Chronic Assessment and Plan: Chronic, stable. Continue with home settings for the CPAP (6) Essential hypertension: Code(s): I10 - Essential (primary) hypertension Status: Chronic Assessment and Plan: Chronic, stable continue amlodipine and hydralazine at home doses as BP tolerates (7) Congestive heart failure: Code(s): I50.9 - Heart failure, unspecified Status: Acute Assessment and Plan: Chronic, diastolic dysfunction, not in acute exacerbation. 11/2021 echocardiogram showed normal LV systolic function with EF greater than 70%, grade 1 diastolic dysfunction, moderate left atrial enlargement, and mild aortic stenosis. Monitor volume status. Continue daily weights. Continue metoprolol, Imdur, furosemide, and Ranexa. Stable (8) Anemia in chronic kidney disease: Code(s): N18.9 - Chronic kidney disease, unspecified; D63.1 - Anemia in chronic kidney disease Status: Chronic Assessment and Plan: Chronic, secondary to CKD. H&H at baseline. Monitor while inpatient and on triple antithrombotic therapy. Stable Plan Code status: Full code Disposition: Inpatient, med surge w
--- NOTE | 2022-07-25 10:25 | PC.NURSE ---
This patient, Juvenal Rodriguez Pilo Brock, was received from [facility] on 07/25/22 at 1000. Patient/family oriented to unit policies and routines
--- NOTE | 2022-07-25 10:51 | PM.CNNEP ---
History of Present Illness Reason for Consult Consult date: 07/25/22 Chief Complaint Chief complaint: Left Lower Extremity Deep Vein Thrombosis History of Present Illness Narrative: ESRD [facility] Past Medical History Medical History (Updated 07/24/22 @ 17:01 by Nida Hernández APRN) Acute non-ST elevation myocardial infarction (NSTEMI) Anemia in chronic kidney disease Anxiety Arthritis Congestive heart failure Echocardiogram May 2017 EF of 50% with hypokinetic apical, inferior and basal inferior lateral segment, mild enlargement of left atrium. Coronary artery disease With history of several stents. Followed by [facility]. Deep venous thrombosis Chronic right popliteal DVT. Diabetes mellitus with hyperosmolarity without hyperglycemic hyperosmolar nonketotic coma Diabetic peripheral neuropathy Diabetic retinopathy DKA (diabetic ketoacidosis) Elevated LFTs End-stage renal disease on peritoneal dialysis Essential hypertension Fracture left lower ext Gastroesophageal reflux disease Gout Hyperlipidemia Hypokalemia Hyponatremia Obstructive sleep apnea With inconsistent CPAP use. Paroxysmal atrial fibrillation The patient denies Peritoneal dialysis catheter in place Renal osteodystrophy Secondary hyperparathyroidism of renal origin Seizure X1 with etiology unknown Type 1 diabetes mellitus Onset around age 13. Surgical History Surgical History (Updated 07/24/22 @ 17:01 by Nida Hernández, TRACY) H/O hernia repair History of anterior cruciate ligament surgery (~2000) Left knee History of appendectomy (~2006) History of arthroscopy of left knee History of bilateral carpal tunnel release Right 05/03/2018. Left 06/02/2018. History of cardiac catheterization 01/21/2021 catheterization at [facility], Dr. Hoover done: Little change from prior catheterization. Patent stents in the RCA and PDA. Previously jailed posterolateral is occluded and development of a 50% stenosis of a branch of om 1. Normal LV function. :August 2019 demonstrated patent stents with 40% stenosis of 1 vessel with no stents or angioplasty performed per patient report. :November 2018 at [facility] - stent x3. :March 2017 demonstrating mild diffuse coronary disease 80% lesion small sub branch of obtuse marginal 1 and 90% stenosis distal RCA into the origin of the PDA with PTCA and stent to the RPDA/distal RCA performed by Dr. Petit. History of cataract extraction With lens implant History of open reduction and internal fixation (ORIF) procedure (~1982) Left lower extremity fracture. And the right hip pinning when he was in the 8th grade S/P PTCA (percutaneous transluminal coronary angioplasty) Drug-eluting stents for high-grade OM 99% occlusion 05/2022 Family History Family History Father , in his late 60s Hypertension Dementia Acute myocardial infarction Premature coronary artery disease CHF (congestive heart failure) Mother Hypertension Dementia Daughter Celiac disease Social History Social History (Updated 07/23/22 @ 17:51 by Clarice Christian NP) Social History: His son lives with him and has 3 children. The patient is for many years and is disabled. He is a lifelong nonsmoker does not use any alcohol marijuana or illicit drugs. Primary care provider: Dr. Aditya Castro Code status: Full code Smoking status: Never smoker Second hand tobacco smoke exposure: No Alcohol intake: never Substance use: never Lack of Transportation: No Lack of Food: Never True Current Housing: I Have Housing Concerned About Future Housing: No Difficulty Paying Gas/Electric Bills: No Difficulty Paying for Meds: No Currently Unemployed: No Education: High School Diploma/GED Difficulty w/ Childcare or Family Care: No Additional living arrangements comments: He is single and has 3 childre
--- NOTE | 2022-07-25 10:52 | PM.PNNEP ---
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 Stable hemoglobin, her erythropoietin Secondary hyperparathyroidism: Calcitriol, binder for high phosphorus level Obstructive sleep apnea on CPAP: Maintain CPAP use Coronary artery disease status post recent complex stent placement with drug-eluting stent, status post cardiogenic shock, acute respiratory failure requiring ventilatory support in recent past. Elevated lactate at admission: Unclear etiology, probably perfusion related Hyponatremia in the setting of ESRD Plan: -peritoneal with dialysis as per orders, maintained, we will car changer to 4.25% and 2.5% Dianeal concentration if needed . Patient is on Extraneal on an outpatient basis -he needs to get back on his CPAP which will help -anticoagulation with transition to oral from intravenous heparin -follow-up Subjective Date/time seen: 07/25/22 10:52 Chief complaint: Follow-up ESRD, patient on peritoneal dialysis Review of Systems Review of Systems: breathing is fine, no shortness of breath. Tolerated dialysis last night. Feels a bit less tight in the left lower extremity. No other complaints voiced. Did not use CPAP last night Exam Narrative: well-developed well-nourished, obese, more animated today, comfortable with breathing at rest, normal skin turgor, no rashes, slight erythema to the left lower extremity, JVD negative, regular rate rhythm, no gallop, no rub, equal breath sounds, no rales wheeze, soft nontender abdomen, edema in the left lower extremity, alert oriented x3, no tremor, vital signs as indicated Objective Data Vital Signs Vital Signs: Vital Signs - 24 hr 07/24/22 11:52 07/24/22 12:33 07/24/22 12:00 Temperature Pulse Rate 82 80 Respiratory Rate Blood Pressure Pulse Oximetry Oxygen Delivery Room Air 07/24/22 12:00 07/24/22 14:00 07/24/22 16:00 Temperature 36.9 C Pulse Rate 79 76 Respiratory Rate 16 Blood Pressure 118/56 L Pulse Oximetry 96 Oxygen Delivery Room Air 07/24/22 16:00 07/24/22 16:00 07/24/22 17:52 Temperature 36.9 C Pulse Rate 82 79 80 Respiratory Rate 20 Blood Pressure 99/64 L Pulse Oximetry 100 Oxygen Delivery 07/24/22 18:00 07/24/22 20:00 07/24/22 23:43 Temperature 36.9 C 36.6 C 36.5 C Pulse Rate 75 83 87 Respiratory Rate 18 20 20 Blood Pressure 99/64 L 98/60 L 110/58 L Pulse Oximetry 99 99 Oxygen Delivery Room Air 07/24/22 20:00 07/25/22 00:00 07/25/22 04:00 Temperature 36.6 C Pulse Rate 83 85 78 Respiratory Rate 20 Blood Pressure 115/53 L Pulse Oximetry 100 Oxygen Delivery 07/25/22 04:00 07/25/22 08:02 07/25/22 08:00 Temperature 36.6 C Pulse Rate 75 75 86 Respiratory Rate 16 Blood Pressure 115/53 L Pulse Oximetry Oxygen Delivery 07/25/22 08:00 07/25/22 08:51 07/25/22 08:00 Temperature 36.6 C Pulse Rate 83 81 81 Respiratory Rate 16 16 Blood Pressure 121/58 L Pulse Oximetry 96 96 Oxygen Delivery Room Air 07/25/22 10:10 Temperature 36.2 C L Pulse Rate 81 Respiratory Rate 16 Blood Pressure 112/61 Pulse Oximetry 100 Oxygen Delivery Intake/Output Intake/Output: Intake & Output 07/22/22 07/23/22 07/24/22 07/25/22 23:59 23:59 23:59 23:59 Intake Total 600 1090 475 Output Total 350 1033 Balance 600 306 -508 Meds/Results Medications: Active Medications Generic Name Dose Route Start Last Admin
[2022-07-25 12:31] LABS: Glucose Point of Care 151 mg/dl (65-105)
[2022-07-25 12:55] LABS: Partial Thromboplastin Time 72.5 SECONDS (22.3-36.8)
[2022-07-25 13:31] LABS: Prostate Specific Antigen 0.4 ng/mL (< OR = 4.0)
[2022-07-25] MEDS: FUROSEMIDE 40 MG TABLET PO (16:43)
[2022-07-25 17:23] LABS: Glucose Point of Care 115 mg/dl (65-105)
[2022-07-25] MEDS: HYDROmorphone HCL INJ (*CRX) 1 MG/ML SYR 0.5 MG IV PUSH (18:12)
[2022-07-25] MEDS: ATORVASTATIN 40 MG TABLET 80 MG PO (20:40)
[2022-07-26] VITALS (11 sets, daily range): BP systolic 127–142; BP diastolic 59–76; PULSE 66–75; RESP 14–20; TEMP 36.1–36.8; O2SAT 92–99
[2022-07-26 06:55] LABS: Albumin Level 3.4 g/dL (3.5-5.1); Anion Gap 13 mmol/L (8-16); Blood Urea Nitrogen 44 mg/dL (9-20); Calcium 7.9 mg/dL (8.4-10.2); Carbon Dioxide 27 mmol/L (22-30); Chloride 90 mmol/L (98-107); Estimated CRCL calculation 12 ml/min; Estimated Glomerular Filt Rate 6; Glucose 180 mg/dL (65-110); Magnesium 1.7 mg/dL (1.6-2.3); Sodium 130 mmol/L (137-145)
[2022-07-26 07:22] LABS: Partial Thromboplastin Time 60.8 SECONDS (22.3-36.8)
[2022-07-26] MEDS: APIXABAN 5 MG TABLET 10 MG PO ×2 (07:54→20:29)
[2022-07-26] MEDS: ACETAMINOPHEN 325 MG TABLET 650 MG PO (07:54)
[2022-07-26] MEDS: FUROSEMIDE 40 MG TABLET PO ×2 (07:56→16:46)
[2022-07-26] MEDS: CLOPIDOGREL BISULFATE 75 MG TABLET PO (07:56)
[2022-07-26] MEDS: ASPIRIN 81 MG CHEWABLE TABLET PO (07:56)
[2022-07-26] MEDS: CALCIUM ACETATE 667 MG TABLET PO ×4 (07:56→20:29)
[2022-07-26] MEDS: calcitrioL 0.25 MCG CAPSULE PO (07:56)
[2022-07-26] MEDS: EZETIMIBE 10 MG TABLET PO (07:56)
[2022-07-26] MEDS: OMEGA 3 POLYUNSAT FATTY ACIDS 1 GM CAP PO ×2 (07:57→16:46)
[2022-07-26] MEDS: ISOSORBIDE MONONITRATE 30 MG TAB.ER.24H PO (07:57)
[2022-07-26] MEDS: METOPROLOL TARTRATE 12.5 MG TABLET PO ×2 (07:57→16:46)
[2022-07-26] MEDS: PANTOPRAZOLE 40 MG TABLET PO (07:57)
[2022-07-26] MEDS: LORATADINE 10 MG TABLET PO (07:57)
[2022-07-26] MEDS: RANOLAZINE 500 MG TAB.ER.12H PO ×2 (07:57→20:29)
--- NOTE | 2022-07-26 08:03 | PC.NURSE ---
heparin turned off per order
[2022-07-26] MEDS: HYDROcodone/acetaminophen (*CRX) 5-325 MG TABLET 1 TAB PO (08:40)
--- NOTE | 2022-07-26 09:19 | P.PNIM_ITS ---
Progress Note: A&P Assessment and Plan (1) Deep vein thrombosis: Code(s): I82.409 - Acute embolism and thrombosis of unspecified deep veins of unspecified lower extremity Status: Acute Assessment and Plan: Patient presented to the ED with c/o LLE swelling. * He was recently hospitalized in 06/02-06/04 at our facility and transferred for high risk coronary angioplasty. He is currently on DAPT therapy. * He has also had prior DVTs and was previously treated with Xarelto. Given this the patient requires triple antithrombotic therapy, making him high risk for bleeding. He will need long-term anticoagulation and 6-12 months DAPT therapy at a [facility]. * He started on heparin drip 07/26/2022 * Patient was on Eliquis previously this was discussed with his boarding house manager and plan to discharge patient on Eliquis. He will need long-term management given this is the 2nd to 3rd DVT unprovoked. * He reports prior colonoscopy 3 years ago that was normal. He is a nonsmoker. He denies evaluation of prostate recently will check PSA * Hematology, Dr. Schmid consulted and no coagulation workup needed at this time as it will not belt changer. * Heparin drip started on admission and continued until 07/26/22 0800 when Eliquis 10 mg PO BID x 7 days started. * Will monitor on therapy for 24 hours, mobilize and discharge in the morning if stable. * He will need follow up with Hematology in 2 months with follow up venous doppler. (2) Coronary artery disease: Qualifiers: Associated angina: with stable angina Coronary Disease-Associated Artery/Lesion type: [place] artery [place] vs. transplanted heart: [place] heart Qualified Code(s): I25.118 - Atherosclerotic heart disease of [place] coronary artery with other forms of angina pectoris Code(s): I25.10 - Atherosclerotic heart disease of [place] coronary artery without angina pectoris Status: Chronic Assessment and Plan: Chronic, patient had recent drug-eluting stents placed in May of this year at [facility]. Has had 4 prior stents in 2019. * Continue aspirin, Plavix, statin, Zetia, Imdur, Ranexa (3) Type 1 diabetes mellitus with hyperglycemia, with long-term current use of insulin: Code(s): E10.65 - Type 1 diabetes mellitus with hyperglycemia Status: Chronic Assessment and Plan: Chronic, A1c 6.8% * continue patient's insulin pump with settings 1.7 units/hour 8am to 8 pm, then 5.7 units/hour 8 pm to 8 am. * He has been managing his insulin pump and recording for nursing per protocol. * Monitor blood sugars * Stable (4) End stage renal disease on dialysis: Code(s): N18.6 - End stage renal disease; Z99.2 - Dependence on renal dialysis Status: Chronic Assessment and Plan: Dr. Reyes has been consulted. * Patient is on peritoneal dialysis nightly. * Stable * K 3.0 given 40 mEQ PO x1 07/26 (5) Obstructive sleep apnea: Code(s): G47.33 - Obstructive sleep apnea (adult) (pediatric) Status: Chronic Assessment and Plan: Chronic, stable. * Continue with home settings for the CPAP (6) Essential hypertension: Code(s): I10 - Essential (primary) hypertension Status: Chronic Assessment and Plan: Chronic, stable * continue amlodipine and hydralazine at home doses as BP tolerates (7) Congestive heart failure: Code(s): I50.9 - Heart failure, unspecified Status: Acute Assessment and Plan: Chronic, diastolic dysfunction, not in acute exacerbation. * 11/2021 echocardiogram showed normal LV systoli
--- NOTE | 2022-07-26 09:19 | PM.IMPN ---
Progress Note: A&P Assessment and Plan (1) Deep vein thrombosis: Code(s): I82.409 - Acute embolism and thrombosis of unspecified deep veins of unspecified lower extremity Status: Acute Assessment and Plan: Patient presented to the ED with c/o LLE swelling. He was recently hospitalized in 06/02-06/04 at our facility and transferred for high risk coronary angioplasty. He is currently on DAPT therapy. He has also had prior DVTs and was previously treated with Xarelto. Given this the patient requires triple antithrombotic therapy, making him high risk for bleeding. He will need long-term anticoagulation and 6-12 months DAPT therapy at a [facility]. He started on heparin drip 07/26/2022 Patient was on Eliquis previously this was discussed with his crm marketing specialist and plan to discharge patient on Eliquis. He will need long-term management given this is the 2nd to 3rd DVT unprovoked. He reports prior colonoscopy 3 years ago that was normal. He is a nonsmoker. He denies evaluation of prostate recently will check PSA Hematology, Dr. Schmid consulted and no coagulation workup needed at this time as it will not vice president of talent management. Heparin drip started on admission and continued until 07/26/22 0800 when Eliquis 10 mg PO BID x 7 days started. Will monitor on therapy for 24 hours, mobilize and discharge in the morning if stable. He will need follow up with Hematology in 2 months with follow up venous doppler. (2) Coronary artery disease: Qualifiers: Associated angina: with stable angina Coronary Disease-Associated Artery/Lesion type: [place] artery [place] vs. transplanted heart: nome heart Qualified Code(s): I25.118 - Atherosclerotic heart disease of [place] coronary artery with other forms of angina pectoris Code(s): I25.10 - Atherosclerotic heart disease of [place] coronary artery without angina pectoris Status: Chronic Assessment and Plan: Chronic, patient had recent drug-eluting stents placed in May of this year at [facility]. Has had 4 prior stents in 2019. Continue aspirin, Plavix, statin, Zetia, Imdur, Ranexa (3) Type 1 diabetes mellitus with hyperglycemia, with long-term current use of insulin: Code(s): E10.65 - Type 1 diabetes mellitus with hyperglycemia Status: Chronic Assessment and Plan: Chronic, A1c 6.8% continue patient's insulin pump with settings 1.7 units/hour 8am to 8 pm, then 5.7 units/hour 8 pm to 8 am. He has been managing his insulin pump and recording for nursing per protocol. Monitor blood sugars Stable (4) End stage renal disease on dialysis: Code(s): N18.6 - End stage renal disease; Z99.2 - Dependence on renal dialysis Status: Chronic Assessment and Plan: Dr. Reyes has been consulted. Patient is on peritoneal dialysis nightly. Stable K 3.0 given 40 mEQ PO x1 07/26 (5) Obstructive sleep apnea: Code(s): G47.33 - Obstructive sleep apnea (adult) (pediatric) Status: Chronic Assessment and Plan: Chronic, stable. Continue with home settings for the CPAP (6) Essential hypertension: Code(s): I10 - Essential (primary) hypertension Status: Chronic Assessment and Plan: Chronic, stable continue amlodipine and hydralazine at home doses as BP tolerates (7) Congestive heart failure: Code(s): I50.9 - Heart failure, unspecified Status: Acute Assessment and Plan: Chronic, diastolic dysfunction, not in acute exacerbation. 11/2021 echocardiogram showed normal LV systolic function with EF greater than 70%, grade 1 diastolic dysfunction, moderate left atrial enlargement, and mild aortic stenosis. Monitor volume status. Continue daily weights. Continue metoprolol, Imdur, furosemide, and Ranexa. Stable (8) Anemia in chronic kidney disease: Code(s): N18.9 - Chronic kidney disease, unspecified; D63.1 - Anemia in chronic kidney disease S
[2022-07-26] MEDS: POTASSIUM CHLORIDE 20 MEQ TABLET 40 MEQ PO (11:26)
[2022-07-26] MEDS: HYDROmorphone HCL INJ (*CRX) 1 MG/ML SYR 0.5 MG IV PUSH (11:26)
--- NOTE | 2022-07-26 12:55 | PDONCCN ---
HPI - Date of Consult Date/Time: 07/26/22 12:55 Requesting Physician: Abelardo Hawley MD Primary Care Provider: Aditya Castro, MD - Consult Narrative Reason for consult: Hypercoagulable state Narrative: Juvenal Daigle Jr. is a 51 year old male with history of chronic kidney stage 5 disease on peritoneal dialysis for last couple of years duration as well as history of coronary artery disease status post stent placement in March 2017, November 2018 and more recently in May 2022. He also has history of left lower extremity DVT. He was last seen in the office in October of 2019 and at that time showed no evidence of DVT. He was in a cardiac rehab after recent stent placement and was not very active. He denies any injury, trauma and recent traveling. He developed left lower extremity swelling and came into the hospital. He was already taking aspirin and Plavix. Venous Doppler showed occlusive DVT involving throughout the left lower extremity. He was started on heparin drip as well as Dilaudid for pain control. He denies any other new complaints. Review of Systems - Review of Systems All systems reviewed & are unremarkable except as noted in HPI and bel - Neurologic Reports system reviewed and no additional complaints, except as documented, Reports hearing normal [facility] Medical History: Medical History (Last Updated 07/24/22 @ 17:01 by Nida Hernández APRN) Acute non-ST elevation myocardial infarction (NSTEMI) Anemia in chronic kidney disease Anxiety Arthritis Congestive heart failure Echocardiogram May 2017 EF of 50% with hypokinetic apical, inferior and basal inferior lateral segment, mild enlargement of left atrium. Coronary artery disease With history of several stents. Followed by [facility]. Deep venous thrombosis Chronic right popliteal DVT. Diabetes mellitus with hyperosmolarity without hyperglycemic hyperosmolar nonketotic coma Diabetic peripheral neuropathy Diabetic retinopathy DKA (diabetic ketoacidosis) Elevated LFTs End-stage renal disease on peritoneal dialysis Essential hypertension Fracture left lower ext Gastroesophageal reflux disease Gout Hyperlipidemia Hypokalemia Hyponatremia Obstructive sleep apnea With inconsistent CPAP use. Paroxysmal atrial fibrillation The patient denies Peritoneal dialysis catheter in place Renal osteodystrophy Secondary hyperparathyroidism of renal origin Seizure X1 with etiology unknown Type 1 diabetes mellitus Onset around age 13. Surgical History: Surgical History (Last Updated 07/24/22 @ 17:01 by Nida R. Betty, ELECTRICAL LINEMAN) H/O hernia repair History of anterior cruciate ligament surgery Onset Date: ~2000 Left knee History of appendectomy Onset Date: ~2006 History of arthroscopy of left knee History of bilateral carpal tunnel release Right 05/03/2018. Left 06/02/2018. History of cardiac catheterization 01/21/2021 catheterization at [facility], Dr. Hoover done: Little change from prior catheterization. Patent stents in the RCA and PDA. Previously jailed posterolateral is occluded and development of a 50% stenosis of a branch of om 1. Normal LV function. :August 2019 demonstrated patent stents with 40% stenosis of 1 vessel with no stents or angioplasty performed per patient report. :November 2018 at [facility] - stent x3. :March 2017 demonstrating mild diffuse coronary disease 80% lesion small sub branch of obtuse marginal 1 and 90% stenosis distal RCA into the origin of the PDA with PTCA and stent to the RPDA/distal RCA performed by Dr. Petit. History of cataract extraction With lens implant History of open reduction and internal fixation (ORIF) procedure Onset Date: ~1982 Left lower extremity fracture. And the right hip pinning when he was in the 8th grade S/P PTCA (percutaneous transluminal coronary angioplasty) Drug-eluting stents for high-grade OM 99% occlusion 05/2022 Family
[2022-07-26] MEDS: ATORVASTATIN 40 MG TABLET 80 MG PO (20:30)
[2022-07-26 21:02] LABS: Glucose Point of Care 198 mg/dl (65-105)
[2022-07-27] VITALS (11 sets, daily range): BP systolic 126–165; BP diastolic 51–74; PULSE 65–81; RESP 16–20; TEMP 36–36.6; O2SAT 95–100
[2022-07-27 07:57] LABS: Hematocrit 30.9 % (42.0-52.0); Hemoglobin 10.2 g/dL (14.0-18.0); Mean Corpuscular Hemoglobin 30.1 pg (26-34); Mean Corpuscular Volume 91.2 fl (80-100); Mean Platelet Volume 9.5 fl (7.4-10.4); Platelet Count Result 169 k/mm3 (150-375); Red Blood Count 3.39 M/mm3 (4.6-6.20); Red Cell Distribution Width 14.6 % (11.5-14.5)
[2022-07-27 08:05] LABS: Albumin Level 3.2 g/dL (3.5-5.1); Anion Gap 9 mmol/L (8-16); Blood Urea Nitrogen 39 mg/dL (9-20); Calcium 8.4 mg/dL (8.4-10.2); Carbon Dioxide 28 mmol/L (22-30); Chloride 91 mmol/L (98-107); Estimated CRCL calculation 13 ml/min; Estimated Glomerular Filt Rate 7; Glucose 154 mg/dL (65-110); Magnesium 1.7 mg/dL (1.6-2.3); Phosphorus 4.9 mg/dL (2.5-4.5); Potassium 3.2 mmol/L (3.4-5.0); Sodium 128 mmol/L (137-145)
[2022-07-27] MEDS: ASPIRIN 81 MG CHEWABLE TABLET PO (08:59)
[2022-07-27] MEDS: RANOLAZINE 500 MG TAB.ER.12H PO ×2 (08:59→20:11)
[2022-07-27] MEDS: ISOSORBIDE MONONITRATE 30 MG TAB.ER.24H PO (08:59)
[2022-07-27] MEDS: OMEGA 3 POLYUNSAT FATTY ACIDS 1 GM CAP PO ×2 (08:59→16:59)
[2022-07-27] MEDS: COLCHICINE 0.6 MG TABLET PO (08:59)
[2022-07-27] MEDS: calcitrioL 0.25 MCG CAPSULE PO (08:59)
[2022-07-27] MEDS: FUROSEMIDE 40 MG TABLET PO ×2 (08:59→16:58)
[2022-07-27] MEDS: CALCIUM ACETATE 667 MG TABLET PO ×4 (09:00→20:10)
[2022-07-27] MEDS: CLOPIDOGREL BISULFATE 75 MG TABLET PO (09:00)
[2022-07-27] MEDS: APIXABAN 5 MG TABLET 10 MG PO ×2 (09:00→21:16)
[2022-07-27] MEDS: EZETIMIBE 10 MG TABLET PO (09:00)
[2022-07-27] MEDS: PANTOPRAZOLE 40 MG TABLET PO (09:00)
[2022-07-27] MEDS: METOPROLOL TARTRATE 12.5 MG TABLET PO ×2 (09:00→16:58)
[2022-07-27] MEDS: LORATADINE 10 MG TABLET PO (09:27)
[2022-07-27 13:26] LABS: IFOB Positive Control Positive; Immunochemical Fecal Occult Bl Positive (N)
--- NOTE | 2022-07-27 15:35 | PM.DS ---
DS: Admitting Diagnosis Discharge Date 07/27/2022 Admitting Diagnosis DVT DS: Discharge Diagnosis Discharge Diagnosis (1) Deep vein thrombosis: Code(s): I82.409 - Acute embolism and thrombosis of unspecified deep veins of unspecified lower extremity Status: Acute (2) Coronary artery disease: Qualifiers: Associated angina: with stable angina Coronary Disease-Associated Artery/Lesion type: [place] artery [place] vs. transplanted heart: [place] heart Qualified Code(s): I25.118 - Atherosclerotic heart disease of [place] coronary artery with other forms of angina pectoris Code(s): I25.10 - Atherosclerotic heart disease of [place] coronary artery without angina pectoris Status: Chronic (3) Type 1 diabetes mellitus with hyperglycemia, with long-term current use of insulin: Code(s): E10.65 - Type 1 diabetes mellitus with hyperglycemia Status: Chronic (4) End stage renal disease on dialysis: Code(s): N18.6 - End stage renal disease; Z99.2 - Dependence on renal dialysis Status: Chronic (5) Obstructive sleep apnea: Code(s): G47.33 - Obstructive sleep apnea (adult) (pediatric) Status: Chronic (6) Essential hypertension: Code(s): I10 - Essential (primary) hypertension Status: Chronic (7) Congestive heart failure: Code(s): I50.9 - Heart failure, unspecified Status: Acute (8) Anemia in chronic kidney disease: Code(s): N18.9 - Chronic kidney disease, unspecified; D63.1 - Anemia in chronic kidney disease Status: Chronic Plan Code status: Full code Disposition: Inpatient, med surg. DC telemetry Discharge disposition: DC in am. DS: Summary Hospital Course Reason for hospitalization: DVT Hospital Course: 51-year-old male with history of chronic kidney disease, type 1 diabetes, CAD, CHF and hyperlipidemia. Patient presented to the ER with left lower extremity swelling on 07/23/2022. Venous Doppler on 07/23/2022 revealed occlusion deep vein thrombosis throughout the left lower extremity. Previous venous Doppler on 06/04/2022 did not reveal any DVT. Patient has a history of prior DVT use and was previously treated with Xarelto. Patient diagnosed with NSTEMI during the month of May 2022. Patient has a history of cardiac catheterization on 06/11 and is currently on Plavix and aspirin postoperatively. Patient recently started on heparin drip and was transition to Eliquis p.o. during his stay at the hospital. Patient has stage 5 chronic kidney disease and Nephrology was consulted. Patient undergoes peritoneal dialysis on outpatient basis and advised to continue doing this. Patient's Eliquis was started on 07/26/2022. Eliquis will be continued 10 mg over the next 7 days. Time Spent with Patient Time attestation: Total time spent providing and/or coordinating discharge services: Exam Narrative: GENERAL: Comfortable, no acute distress HENMT: moist mucous membranes EYES: EOM intact b/l NECK: no lymphadenopathy RESPIRATORY: clear to auscultation CARDIO: RRR GI: soft, nontender, bowel sounds present SKIN: no rashes EXTREMITIES: +2 pitting edema on the left extremity from the hip down. Left leg warm to touch, tenderness with calf squeeze, posterior tibial and dorsalis pedis pulses +2 bilaterally. Hemosiderin staining lower extremities bilaterally. DS: Data Data Completed and Pending Labs on day of discharge: Labs from last 24 hours 07/27/22 07/27/22 07/27/22 12:58 07:24 07:24 WBC 4.0 L RBC 3.39 L Hgb 10.2 L Hct 30.9 L MCV 91.2 MCH 30.1 MCHC 33.0 RDW 14.6 H Plt Count 169 MPV 9.5 Sodium 128 L Potassium 3.2 L Chloride 91 L Carbon Dioxide 28 Anion Gap 9 BUN 39 H Creatinine 8.30 H Estim Creat Clear Calc 13 Estimated GFR 7 L Glucose 154 H POC Capillary Glucose Calcium 8.4 Phosphorus 4.9 H Magnesium 1.7 Albumin 3.2 L Stl Oc
[2022-07-27 20:01] LABS: Glucose Point of Care > 500 mg/dl (65-105)
[2022-07-27] MEDS: ATORVASTATIN 40 MG TABLET 80 MG PO (20:10)
[2022-07-27] MEDS: PANTOPRAZOLE SODIUM IV 40 MG VIAL IV PUSH (20:10)
--- NOTE | 2022-07-27 20:56 | P.PNCROSS_ITS ---
Event Note Event Note Event Note: Phone call received from nursing staff with reports that the patient's peritone al fluid was now pink tinged and also with reports that his stool was positive for occult blood this afternoon. Case discussed with the patient's deicer repairer pneumatic, Dr. Reyes, who recommends doing a Gram stain, culture, and cell count on the fluid. Patient's chart was reviewed and he was recently started on Eliquis for an occlusive DVT throughout the left leg. For now we will continue with Eliquis and keep a close eye on his peritoneal fluid and trend hemoglobin and hematocrit. May need IVC filter insertion and/or vascular consult depending on his course overnight.
[2022-07-27 21:48] LABS: INR 1.5; Partial Thromboplastin Time 33.7 SECONDS (22.3-36.8); Prothrombin Time 17.2 Seconds (11.1-14.7)
[2022-07-27 21:49] LABS: Anion Gap 10 mmol/L (8-16); Blood Urea Nitrogen 43 mg/dL (9-20); Calcium 8.4 mg/dL (8.4-10.2); Carbon Dioxide 27 mmol/L (22-30); Chloride 90 mmol/L (98-107); Estimated CRCL calculation 14 ml/min; Estimated Glomerular Filt Rate 8; Glucose 475 mg/dL (65-110); Hemoglobin 10.5 g/dL (14.0-18.0); Potassium 3.7 mmol/L (3.4-5.0); Sodium 127 mmol/L (137-145)
[2022-07-27 23:23] LABS: Glucose Point of Care 427 mg/dl (65-105)
--- NOTE | 2022-07-27 23:54 | PCRCNOTE ---
Pt thought he was being discharged today so pt's son took his CPAP unit home with him. When asked if he would like a hospital unit to use until discharge, pt refused. Pt reminded to call if he changes his mind.
[2022-07-28] VITALS: BP 135/74; PULSE 71; RESP 18; TEMP 36.6; O2SAT 100
[2022-07-28 04:00] VITALS: BP 169/69; PULSE 68; RESP 18; TEMP 36.5; O2SAT 98
[2022-07-28 07:55] LABS: Glucose Point of Care 213 mg/dl (65-105)
[2022-07-28 08:00] VITALS: BP 135/69; PULSE 69; RESP 18; TEMP 36.2; O2SAT 100
[2022-07-28 08:12] LABS: Hematocrit 31.1 % (42.0-52.0); Hemoglobin 10.5 g/dL (14.0-18.0); Mean Corpuscular HGB Conc 33.8 g/dl (32-36); Mean Corpuscular Hemoglobin 30.6 pg (26-34); Mean Corpuscular Volume 90.7 fl (80-100); Mean Platelet Volume 9.2 fl (7.4-10.4); Platelet Count Result 178 k/mm3 (150-375); Red Blood Count 3.43 M/mm3 (4.6-6.20); Red Cell Distribution Width 14.6 % (11.5-14.5)
[2022-07-28 08:19] LABS: Anion Gap 10 mmol/L (8-16); Blood Urea Nitrogen 39 mg/dL (9-20); Calcium 8.6 mg/dL (8.4-10.2); Carbon Dioxide 29 mmol/L (22-30); Chloride 90 mmol/L (98-107); Estimated CRCL calculation 14 ml/min; Estimated Glomerular Filt Rate 8; Glucose 221 mg/dL (65-110); Potassium 3.3 mmol/L (3.4-5.0); Sodium 129 mmol/L (137-145)
[2022-07-28] MEDS: APIXABAN 5 MG TABLET 10 MG PO (08:39)
[2022-07-28] MEDS: METOPROLOL TARTRATE 12.5 MG TABLET PO (08:40)
[2022-07-28] MEDS: ISOSORBIDE MONONITRATE 30 MG TAB.ER.24H PO (08:40)
[2022-07-28] MEDS: EZETIMIBE 10 MG TABLET PO (08:40)
[2022-07-28] MEDS: RANOLAZINE 500 MG TAB.ER.12H PO (08:40)
[2022-07-28] MEDS: CLOPIDOGREL BISULFATE 75 MG TABLET PO (08:40)
[2022-07-28] MEDS: CALCIUM ACETATE 667 MG TABLET PO ×2 (08:40→12:51)
[2022-07-28] MEDS: LORATADINE 10 MG TABLET PO (08:40)
[2022-07-28] MEDS: FUROSEMIDE 40 MG TABLET PO (08:40)
[2022-07-28] MEDS: PANTOPRAZOLE SODIUM IV 40 MG VIAL IV PUSH (08:40)
[2022-07-28] MEDS: ASPIRIN 81 MG CHEWABLE TABLET PO (08:40)
[2022-07-28] MEDS: OMEGA 3 POLYUNSAT FATTY ACIDS 1 GM CAP PO (08:40)
[2022-07-28] MEDS: calcitrioL 0.25 MCG CAPSULE PO (08:40)
--- NOTE | 2022-07-28 10:53 | WPDGICN ---
Assessment and Plan Assessment and plan (1) Occult blood in stools: Code(s): R19.5 - Other fecal abnormalities Status: Acute Assessment and Plan: Patient with occult blood in stool. Now anticoagulated because of DVT. Also anticoagulated because of recent cardiac stents after in [place] 1 month ago. He is felt to have a hypercoagulable state and long-term anticoagulation anticipated. Occult blood in stool likely related anticoagulation. Patient is also noted to have some blood tinge in his peritoneal dialysis catheter. It would seem prudent to pursue colonoscopy an EGD to assess for potential lesions that could contribute to bleeding. However, endoscopy would require holding anticoagulation so that any findings could be cauterized or treated appropriately. I will defer endoscopy until it can be determined that anticoagulation can be safely held. Otherwise plan GI endoscopy at a later date when anticoagulation can be held. (2) Deep vein thrombosis: Code(s): I82.409 - Acute embolism and thrombosis of unspecified deep veins of unspecified lower extremity Status: Acute (3) Chronic anticoagulation: Code(s): Z79.01 - terminal supervisor (current) use of anticoagulants Status: Acute (4) End stage renal disease on dialysis: Code(s): N18.6 - End stage renal disease; Z99.2 - Dependence on renal dialysis Status: Chronic (5) Type 1 diabetes mellitus with hyperglycemia: Code(s): E10.65 - Type 1 diabetes mellitus with hyperglycemia Status: Chronic (6) Obesity: Code(s): E66.9 - Obesity, unspecified Status: Acute (7) Coronary artery disease: Qualifiers: Coronary Disease-Associated Artery/Lesion type: [place] artery [place] vs. transplanted heart: [place] heart Associated angina: with stable angina Qualified Code(s): I25.118 - Atherosclerotic heart disease of [place] coronary artery with other forms of angina pectoris Code(s): I25.10 - Atherosclerotic heart disease of [place] coronary artery without angina pectoris Status: Chronic GI Consult Note Consult date/time: 07/28/22 10:53 Reason for consult: occult blood in stool. HPI: Juvenal Daigle Jr. is a 51 year old male I have been asked to see at the request of the hospitalist service. Patient found to have Hemoccult-positive stools. Patient denies any obvious blood in his stools. Patient admitted to the hospital on 07/23/22 with apparent DVT in the lower extremity. Since that time he has been on heparin which was recently changed to Eliquis. Patient was found to have occult blood in stool on routine screening exam. Patient denies any change in bowel habits he has no bleeding. Patient hospitalized recently with a non ST elevated VT in May of 2022. He also has congestive heart failure and diabetes. End-stage renal disease on peritoneal dialysis. Patient is chronically anemic with no significant change in hemoglobin recently. He has also noted to have some blood tinge from his peritoneal dialysis catheter. Review of Systems Review of Systems: Review of systems noncontributory. [facility] Past Medical History Medical History (Updated 07/28/22 @ 10:57 by Homero Delcid MD) Acute non-ST elevation myocardial infarction (NSTEMI) Anemia in chronic kidney disease Anxiety Arthritis Congestive heart failure Echocardiogram May 2017 EF of 50% with hypokinetic apical, inferior and basal inferior lateral segment, mild enlargement of left atrium. Coronary artery disease With history of several stents. Followed by [facility]. Deep venous thrombosis Chronic right popliteal DVT. Diabetes mellitus with hyperosmolarity without hyperglycemic hyperosmolar nonketotic coma Diabetic peripheral neuropathy Diabetic retinopathy DKA (diabetic ketoacidosis) Elevated LFTs End-stage renal disease on peritoneal dialysis Essential hypertension Fracture left lower ext Gastroesophageal re
[2022-07-28 11:48] LABS: Glucose Point of Care 240 mg/dl (65-105)
[2022-07-28 12:00] VITALS: BP 146/72; PULSE 69; RESP 18; TEMP 36.3; O2SAT 95
[2022-07-28 12:28] LABS: Appearance Peritoneal Fluid Clear (Clear); Color Peritoneal Fluid Colorless (Colorless); Source Peritoneal Fluid Peritoneal Fluid
[2022-07-28 12:29] LABS: Nucleated Cells Peritoneal Flu 0 /uL (0-500); RBC Peritoneal Fluid 17 /uL (0-100000)
[2022-07-28 12:30] LABS: Lymphocytes Peritoneal Fluid 35 %; Mesothelial Cells Peritoneal Fluid 6 %; Monocytes Peritoneal Fluid 59 %
--- NOTE | 2022-07-28 14:05 | PM.DS ---
DS: Admitting Diagnosis Discharge Date 07/28/2022 Admitting Diagnosis DVT DS: Discharge Diagnosis Discharge Diagnosis (1) Deep vein thrombosis: Code(s): I82.409 - Acute embolism and thrombosis of unspecified deep veins of unspecified lower extremity Status: Acute (2) Coronary artery disease: Qualifiers: Associated angina: with stable angina Coronary Disease-Associated Artery/Lesion type: [place] artery [place] vs. transplanted heart: [place] heart Qualified Code(s): I25.118 - Atherosclerotic heart disease of [place] coronary artery with other forms of angina pectoris Code(s): I25.10 - Atherosclerotic heart disease of [place] coronary artery without angina pectoris Status: Chronic (3) Type 1 diabetes mellitus with hyperglycemia, with long-term current use of insulin: Code(s): E10.65 - Type 1 diabetes mellitus with hyperglycemia Status: Chronic (4) End stage renal disease on dialysis: Code(s): N18.6 - End stage renal disease; Z99.2 - Dependence on renal dialysis Status: Chronic (5) Obstructive sleep apnea: Code(s): G47.33 - Obstructive sleep apnea (adult) (pediatric) Status: Chronic (6) Essential hypertension: Code(s): I10 - Essential (primary) hypertension Status: Chronic (7) Congestive heart failure: Code(s): I50.9 - Heart failure, unspecified Status: Acute (8) Anemia in chronic kidney disease: Code(s): N18.9 - Chronic kidney disease, unspecified; D63.1 - Anemia in chronic kidney disease Status: Chronic Plan Code status: Full code Disposition: Inpatient, med surg. DC telemetry Discharge disposition: DC in am. DS: Summary Hospital Course Reason for hospitalization: DVT Hospital Course: 51-year-old male with history of chronic kidney disease, type 1 diabetes, CAD, CHF and hyperlipidemia.? Patient presented to the ER with left lower extremity swelling on 07/23/2022.? Venous Doppler on 07/23/2022 revealed occlusion deep vein thrombosis throughout the left lower extremity.? Previous venous Doppler on 06/04/2022 did not reveal any DVT.? Patient has a history of prior DVT use and was previously treated with Xarelto.? Patient diagnosed with NSTEMI during the month of May 2022.? Patient has a history of cardiac catheterization on 06/11 and is currently on Plavix and aspirin postoperatively.? Patient recently started on heparin drip and was transition to Eliquis p.o. during his stay at the hospital.? Patient has stage 5 chronic kidney disease and Nephrology was consulted.? Patient undergoes peritoneal dialysis on outpatient basis and advised to continue doing this.? Patient's Hemoccult came back positive on 07/27/2022. GI was consulted due to high risk of bleed in this patient. GI recommended colonoscopy and EGD once patient can hold anticoagulation/anti-platelet therapy. Patient's Eliquis was started on 07/26/2022.? Cardiology consulted due to triple anticoagulation/anti-platelet therapy. Cardiology recommended discontinuation of aspirin and double therapy with Plavix and Eliquis. Recommended that aspirin be restarted once Eliquis course is completed. Eliquis will be continued 10 mg over the next 7 days. Patient being discharged and recommend follow-up with Hematology, Nephrology, and GI. Please follow-up with primary care or Hematology for continuance of Eliquis. Advised patient to discontinue NSAIDs and continue PPI due to risk of GI bleed. On day of discharge patient was having what he described as muscle pain in his chest. Talked to patient about getting troponins and EKG but patient stated that he was ready to go home and that he would seek further care if he thought necessary. Patient stated that his chest pain/muscle pain has resolved. Status at Discharge Functional status at discharge: independent ambulation Overall status at discharge: patient is progressing back to baseline Time Spent with Patient Time attest
--- NOTE | 2022-07-28 15:28 | PM.IMPN ---
Progress Note: A&P Assessment and Plan (1) Deep vein thrombosis: Code(s): I82.409 - Acute embolism and thrombosis of unspecified deep veins of unspecified lower extremity Status: Acute Assessment and Plan: Patient presented to the ED with c/o LLE swelling. He was recently hospitalized in 06/02-06/04 at our facility and transferred for high risk coronary angioplasty. He is currently on DAPT therapy. He has also had prior DVTs and was previously treated with Xarelto. Given this the patient requires triple antithrombotic therapy, making him high risk for bleeding. He will need long-term anticoagulation and 6-12 months DAPT therapy at a [facility]. He started on heparin drip 07/26/2022 Patient was on Eliquis previously this was discussed with his street light lamp cleaner and plan to discharge patient on Eliquis.? He will need long-term management given this is the 2nd to 3rd DVT unprovoked. He reports prior colonoscopy 3 years ago that was normal.? He is a nonsmoker.? He denies evaluation of prostate recently will check PSA Hematology, Dr. Schmid consulted and no coagulation workup needed at this time as it will not frame changer. Heparin drip started on admission and continued until 07/26/22 0800 when Eliquis 10 mg PO BID x 7 days started. He will need follow up with Hematology in 2 months with follow up venous doppler. Discussed patient's case with Cardiology and they recommended aspirin discontinuation and Eliquis initiation along with Plavix. (2) Coronary artery disease: Qualifiers: Coronary Disease-Associated Artery/Lesion type: [place] artery [place] vs. transplanted heart: [place] heart Associated angina: with stable angina Qualified Code(s): I25.118 - Atherosclerotic heart disease of [place] coronary artery with other forms of angina pectoris Code(s): I25.10 - Atherosclerotic heart disease of [place] coronary artery without angina pectoris Status: Chronic Assessment and Plan: Continue Plavix, statin, CD a, Imdur, Ranexa (3) Type 1 diabetes mellitus with hyperglycemia, with long-term current use of insulin: Code(s): E10.65 - Type 1 diabetes mellitus with hyperglycemia Status: Chronic (4) End stage renal disease on dialysis: Code(s): N18.6 - End stage renal disease; Z99.2 - Dependence on renal dialysis Status: Chronic (5) Obstructive sleep apnea: Code(s): G47.33 - Obstructive sleep apnea (adult) (pediatric) Status: Chronic (6) Essential hypertension: Code(s): I10 - Essential (primary) hypertension Status: Chronic (7) Congestive heart failure: Code(s): I50.9 - Heart failure, unspecified Status: Acute (8) Anemia in chronic kidney disease: Code(s): N18.9 - Chronic kidney disease, unspecified; D63.1 - Anemia in chronic kidney disease Status: Chronic Plan Code status: Full code Disposition: Inpatient, med surg. DC telemetry Discharge disposition: DC in am. Subjective Date/time seen: 07/28/22 15:28 Interval history: 51-year-old male with a history of chronic kidney disease stage 5 and last 2 months post cardiac catheterization. Patient resting comfortably in bed. Patient states that his pain in his leg has slightly improved since yesterday. Patient states that he has been having some I and chest pain that he describes as aching across his left pectoral muscle. Patient denies shortness of breath, radiation are of pain down the arms or up the neck, nausea, vomiting, diarrhea, and fever. Review of Systems Review of Systems: All systems reviewed & are unremarkable except as noted in HPI and below Exam Narrative: GENERAL: Comfortable, no acute distress, no diaphoresis, no Sosa sign present HENMT: moist mucous membranes EYES: EOM intact b/l NECK: no lymphadenopathy RESPIRATORY: clear to auscultation CARDIO: RRR, no point tenderness over chest pain area. GI: soft, nontender, bowel sounds present SKIN: no
== END 2022-07-28 15:40 | disposition home health service (06) | DRG 299 ==
LOC: ANHED 14:54 → ANHIMU 17:38 → ANH3MEDSUR 07-25 12:15 → ANHIMU 07-29 13:19
PROVIDERS: Family Medicine; Internal Medicine; Internal Medicine Nephrology; Nurse Practitioner; Nurse Practitioner Family; Physician Assistant; Admitting Provider Chiropractor; Emergency Provider Emergency Medicine; PCP Family Medicine; Visit Provider Internal Medicine Critical Care Medicine
DX: I82.4Z2 Acute embolism and thrombosis of unspecified deep veins of left distal lower extremity (principal); N18.6 End stage renal disease; I13.2 Hypertensive heart and chronic kidney disease with heart failure and with stage 5 chronic kidney disease, or end stage renal disease; I50.32 Chronic diastolic (congestive) heart failure; Z68.41 Body mass index [BMI] 40.0-44.9, adult; E87.1 Hypo-osmolality and hyponatremia; N25.81 Secondary hyperparathyroidism of renal origin; D68.59 Other primary thrombophilia; E10.22 Type 1 diabetes mellitus with diabetic chronic kidney disease; Z20.822 Contact with and (suspected) exposure to COVID-19; E66.9 Obesity, unspecified; E10.65 Type 1 diabetes mellitus with hyperglycemia; E10.42 Type 1 diabetes mellitus with diabetic polyneuropathy; E10.319 Type 1 diabetes mellitus with unspecified diabetic retinopathy without macular edema; I25.10 Atherosclerotic heart disease of native coronary artery without angina pectoris; M19.90 Unspecified osteoarthritis, unspecified site; D63.1 Anemia in chronic kidney disease; E78.5 Hyperlipidemia, unspecified; G47.33 Obstructive sleep apnea (adult) (pediatric); I48.0 Paroxysmal atrial fibrillation; Z95.5 Presence of coronary angioplasty implant and graft; Z79.01 Long term (current) use of anticoagulants; Z79.82 Long term (current) use of aspirin; Z79.02 Long term (current) use of antithrombotics/antiplatelets; Z98.49 Cataract extraction status, unspecified eye; Z96.1 Presence of intraocular lens; Z90.49 Acquired absence of other specified parts of digestive tract; Z99.2 Dependence on renal dialysis; I25.2 Old myocardial infarction
CPT/HCPCS: 36415; 80048; 80053; 80069; 82274; 82948; 83036; 83605; 83735; 84100; 84153; 84443; 85014; 85018; 85025; 85027; 85610; 85730; 86706; 87040; 87070; 87075; 87205; 87340; 89051; 90945; 93971; 99285; A9270; C9113; J1170; J1644; J2405; J7030; U0003; U0005

== ENCOUNTER 2022-09-21 12:18 | Outpatient (CLI) | payer MEDICARE, MEDICAID, SELFPAY ==
[2022-09-21 12:33] LABS: Hematocrit 36.6 % (42.0-52.0); Hemoglobin 12.4 g/dL (14.0-18.0); Mean Corpuscular HGB Conc 33.9 g/dl (32-36); Mean Corpuscular Hemoglobin 29.7 pg (26-34); Mean Corpuscular Volume 87.6 fl (80-100); Mean Platelet Volume 8.9 fl (7.4-10.4); Platelet Count Result 186 k/mm3 (150-375); Red Blood Count 4.18 M/mm3 (4.6-6.20); Red Cell Distribution Width 13.2 % (11.5-14.5); White Blood Count 5.5 K/mm3 (4.5-10.0)
[2022-09-21 12:59] LABS: Anion Gap 6 mmol/L (8-16); Blood Urea Nitrogen 50 mg/dL (9-20); Calcium 8.8 mg/dL (8.4-10.2); Carbon Dioxide 32 mmol/L (22-30); Chloride 100 mmol/L (98-107); Estimated Glomerular Filt Rate 10; Glucose 178 mg/dL (65-110); Potassium 3.8 mmol/L (3.4-5.0); Sodium 138 mmol/L (137-145)
== END 2022-09-21 12:19 | disposition home or self-care (01) ==
PROVIDERS: PCP Family Medicine; Visit Provider Internal Medicine Hematology & Oncology
DX: Z86.718 Personal history of other venous thrombosis and embolism (principal)
CPT/HCPCS: 36415; 80048; 85027

== ENCOUNTER 2022-10-26 15:30 | Outpatient (CLI) | payer MEDICARE, MEDICAID, SELFPAY ==
--- NOTE | ~2022-10-26 | US_ITS ---
Duplex Sonography of the left extremity: Indication: Swelling, history DVT Findings: Sagittal and transverse B-mode images as well as color-flow imaging were performed on the l eft femoral and popliteal veins. B-mode examination was done without and with compression in the tra nsverse plane. There is good visualization of the common femoral, proximal profunda femoral, superfi cial femoral, greater saphenous, and popliteal veins. Normal flow was seen on color-flow imaging. No rmal compressibility was demonstrated. Peroneal and posterior tibial veins are also patent. Impression: No evidence of deep vein thrombosis involving the visualized left lower extremity veins. Reviewed, dictated and finalized at location M. [employer]ER[employer] TECHNICIAN Impression: No evidence of deep vein thrombosis involving the visualized left lower extremi ty veins.
== END 2022-10-26 15:31 | disposition home or self-care (01) ==
PROVIDERS: PCP Family Medicine; Visit Provider Internal Medicine Hematology & Oncology
DX: Z86.718 Personal history of other venous thrombosis and embolism (principal)
CPT/HCPCS: 93971

== ENCOUNTER 2022-11-19 19:19 | Emergency (ER) | payer MEDICARE, MEDICAID, SELFPAY ==
[2022-11-19 19:23] VITALS: BP 195/78; PULSE 73; RESP 18; TEMP 36.9; O2SAT 100
[2022-11-19 20:19] VITALS: BP 165/82; PULSE 73; RESP 20; O2SAT 97
[2022-11-19] MEDS: HYDROcodone/acetaminophen (*CRX) 5-325 MG TABLET 1 TAB PO (21:07)
--- NOTE | 2022-11-19 21:16 | ED.EYEPROB ---
HPI - Eye Problem General Chief complaint: Eye Problems Stated complaint: chronic dry eyes with pain and light sensitivity Time Seen by Provider: 11/19/22 19:45 History of Present Illness HPI Narrative: Patient is a 52-year-old male here for evaluation of bilateral eye dryness and irritation. Patient states his eyes have been dry and irritated for his several days it has been worse than usual. He saw his eye doctor who prescribed erythromycin eye ointment and artificial tears but he states he is are not helping. He states that he will go through flareups of eye pain that has been attributed to his BiPAP machine irritating his eyes at nighttime. He denies any visual changes, eye discharge, foreign body.he does not wear contact lenses or glasses. Related Data Home Medications Medication Instructions Recorded Confirmed calcitriol 0.25 mcg capsule 0.25 mcg PO QAM 06/04/19 08/23/22 clopidogrel 75 mg tablet 75 mg PO DAILY 06/04/19 08/23/22 ergocalciferol (vitamin D2) 1,250 50,000 unit PO WEEKLY 06/04/19 08/23/22 mcg (50,000 unit) capsule (Vitamin D2) nitroglycerin 0.4 mg sublingual 0.4 mg sublingual Q5-15M PRN Chest 06/04/19 08/23/22 tablet Pain ezetimibe 10 mg tablet (Zetia) 10 mg PO DAILY 09/09/19 08/23/22 isosorbide mononitrate 30 mg 30 mg PO DAILY 09/09/19 08/23/22 tablet,extended release 24 hr ranolazine 500 mg tablet,extended 500 mg PO Q12H 09/24/19 08/23/22 release,12 hr (Ranexa) cetirizine 10 mg tablet (All Day 10 mg PO DAILY 12/26/19 08/23/22 Allergy (cetirizine)) furosemide 80 mg tablet 40 mg PO BID 02/02/20 08/23/22 calcium acetate(phosphat bind) 667 667 mg PO QID 03/31/20 08/23/22 mg capsule famotidine 40 mg tablet 40 mg PO HS 03/31/20 08/23/22 atorvastatin 80 mg tablet 80 mg PO HS 11/26/20 08/23/22 colchicine 0.6 mg tablet (Colcrys) 0.6 mg PO QMWF 11/26/20 08/23/22 omeprazole 20 mg capsule,delayed 20 mg PO QAM 11/26/20 08/23/22 release docusate sodium 100 mg capsule 100 mg PO DAILY PRN Constipation 06/02/22 08/23/22 icosapent ethyl 1 gram capsule 1 g PO BID 06/02/22 08/23/22 (Vascepa) metoprolol tartrate 25 mg tablet 12.5 mg PO BID 07/23/22 08/23/22 Allergies Allergy/AdvReac Type Severity Reaction Status Date / Time allopurinol Allergy Severe Other Verified 11/19/22 19:19 iohexol Allergy Severe Difficulty Verified 11/19/22 19:19 [From CONTRAST - CT, XRAY] Breathing ticagrelor Allergy Intermediate Rash Verified 11/19/22 19:19 Review of Systems Review of Systems: Gen.: Denies fevers or chills Eyes: Reports eye pain ENT: Denies congestion Respiratory: Denies shortness of breath or cough CV: Denies chest pain or palpitations GI: Denies abdominal pain nausea, emesis or diarrhea denies burning, urgency, frequency or hematuria Musculoskeletal: Denies back pain or muscle pain Neuro: Denies numbness, tingling, weakness or focal weakness Skin: Denies rash Except as documented, all other systems reviewed and negative [facility] Past Medical History Medical History Acute non-ST elevation myocardial infarction (NSTEMI) Anemia in chronic kidney disease Anxiety Arthritis Congestive heart failure Echocardiogram May 2017 EF of 50% with hypokinetic apical, inferior and basal inferior lateral segment, mild enlargement of left atrium. Coronary artery disease With history of several stents. Followed by [facility]. Deep venous thrombosis Chronic right popliteal DVT. Diabetes mellitus with hyperosmolarity without hyperglycemic hyperosmolar nonketotic coma Diabetic peripheral neuropathy Diabetic retinopathy DKA (diabetic ketoacidosis) Elevated LFTs End-stage renal disease on peritoneal dialysis Essential hypertension Fracture left lower ext Gastroesophageal reflux disease Gout Hyperlipidemia Hypokalemia Hyponatremia Obstructive sleep apnea With inconsistent CPAP use. Paroxysmal atrial fibrillation The p
== END 2022-11-19 21:55 | disposition home or self-care (01) ==
PROVIDERS: Emergency Provider Physician Assistant; PCP Family Medicine
DX: H04.123 Dry eye syndrome of bilateral lacrimal glands (principal); I25.2 Old myocardial infarction; I13.2 Hypertensive heart and chronic kidney disease with heart failure and with stage 5 chronic kidney disease, or end stage renal disease; I50.9 Heart failure, unspecified; N18.6 End stage renal disease; E10.22 Type 1 diabetes mellitus with diabetic chronic kidney disease; E78.5 Hyperlipidemia, unspecified
CPT/HCPCS: 99283; A9270

== ENCOUNTER 2022-12-10 16:06 | Inpatient (IN) | payer MEDICARE, MEDICAID, SELFPAY ==
[2022-12-10] VITALS (24 sets, daily range): BP systolic 135–159; BP diastolic 59–86; PULSE 64–72; RESP 11–21; TEMP 36.6–36.7; O2SAT 96–100; BMI 38.9
--- NOTE | ~2022-12-10 | XR_ITS ---
EXAMINATION: XR chest 1V portable INDICATION: Cough TECHNIQUE: Portable AP chest at 0530 hours COMPARISON: 06/02/2022 FINDINGS: There are airspace opacities of the mid and lower lung zones, left greater than right. No p leural effusion or pneumothorax. The cardiomediastinal silhouette is normal. IMPRESSION: 1. Airspace opacities of the mid and lower lung zones, left greater than right, consistent with atele ctasis versus pneumonia. Reviewed, dictated and finalized at location A. IMPRESSION: 1. Airspace opacities of the mid and lower lung zones, left greater than right, consistent with atelectasis versus pneumonia.
[2022-12-10 16:31] LABS: Glucose Point of Care > 500 mg/dl (65-105)
[2022-12-10 17:04] LABS: Basophils Percent Auto 0.6 % (0.2-1.2); Eosinophils Percent Auto 0.4 % (0-4.4); Hematocrit 34.7 % (42.0-52.0); Hemoglobin 11.8 g/dL (14.0-18.0); Immature Granulocyte Absolute 0.02 K/mm3 (0.00-0.031); Immature Granulocyte Percent A 0.4 % (0-0.5); Lymphocytes Percent Auto 26.5 % (18.3-44.2); Mean Corpuscular Hemoglobin 30.6 pg (26-34); Mean Corpuscular Volume 89.9 fl (80-100); Mean Platelet Volume 9.2 fl (7.4-10.4); Monocytes Absolute Auto 0.7 K/mm3 (0.1-0.6); Monocytes Percent Auto 13.3 % (2.6-8.5); Neutrophils Absolute Auto 3.1 K/mm3 (1.3-6.7); Neutrophils Percent Auto 58.8 % (45.5-73.1); Platelet Count Result 177 k/mm3 (150-375); Red Blood Count 3.86 M/mm3 (4.6-6.20); Red Cell Distribution Width 13.2 % (11.5-14.5); White Blood Count 5.3 K/mm3 (4.5-10.0)
[2022-12-10 17:08] LABS: Appearance Urine Clear (Clear); Bacteria Urine None Seen /hpf; Bilirubin Urine Negative (Negative); Blood Urine Trace (Negative); Color Urine Yellow (Yellow); Glucose Urine UA 3+ mg/dL (Negative); Ketones Urine Negative (Negative); Leukocyte Esterase Ur Negative LEU/UL (Negative); Nitrate Urine Negative (Negative); Non Pathogenic Casts 0-2; Protein Urine Negative (Negative); RBC Urine 0-2 /hpf (0-2); Specific Grav Ur 1.019 (1.001-1.035); Squamous Epithelial Cell Urine None seen /hpf (Few); Urobilinogen Urine 0.2 mg/dL (<2.0); WBC Urine 0-5 /hpf
[2022-12-10 17:13] LABS: Add Urine Microscopic? YES
[2022-12-10 17:26] LABS: Beta-Hydroxybutyrate/Acetoacetate 1.06 mmol/L (0.02-0.27)
[2022-12-10 17:40] LABS: Alanine Aminotransferase 55 U/L (6-50); Albumin Level 3.9 g/dL (3.5-5.1); Alkaline Phosphatase 114 U/L (38-126); Anion Gap 17 mmol/L (8-16); Aspartate Amino Transferase 36 U/L (17-59); Bilirubin,Total 1.6 mg/dL (0.2-1.3); Blood Urea Nitrogen 64 mg/dL (9-20); Calcium 8.2 mg/dL (8.4-10.2); Carbon Dioxide 21 mmol/L (22-30); Chloride 86 mmol/L (98-107); Estimated CRCL calculation 17 ml/min; Estimated Glomerular Filt Rate 10; Glucose 866 mg/dL (65-110); Magnesium 1.7 mg/dL (1.6-2.3); Phosphorus 5.7 mg/dL (2.5-4.5); Potassium 4.3 mmol/L (3.4-5.0); Sodium 124 mmol/L (137-145)
--- NOTE | 2022-12-10 18:03 | ED.GENADULT ---
HPI - General Adult General Chief complaint: Recheck/Abnormal Lab/Rx Stated complaint: ELEVATED BLOOD SUGAR Time Seen by Provider: 12/10/22 17:48 History of Present Illness HPI narrative: 52-year-old male with history of peritoneal dialysis and type 2 diabetes presented the emergency department for evaluation of elevated blood sugars. Patient does have an insulin pump and Dexcom. Patient states that he did change his pump yesterday and is unsure if he removed his new pump or his old pump, patient also suspects that his current pump may not be working because he tends to lay on his right arm and that is where this pump is currently located. Patient states over the course of the day his blood sugars have been persistently elevated. Patient does do. Also some lasted dialysis last night. Patient has not done dialysis today and is scheduled for dialysis between 8 and 9 PM tonight. Related Data Home Medications Medication Instructions Recorded Confirmed calcitriol 0.25 mcg capsule 0.25 mcg PO QAM 06/04/19 08/23/22 clopidogrel 75 mg tablet 75 mg PO DAILY 06/04/19 08/23/22 ergocalciferol (vitamin D2) 1,250 50,000 unit PO WEEKLY 06/04/19 08/23/22 mcg (50,000 unit) capsule (Vitamin D2) nitroglycerin 0.4 mg sublingual 0.4 mg sublingual Q5-15M PRN Chest 06/04/19 08/23/22 tablet Pain ezetimibe 10 mg tablet (Zetia) 10 mg PO DAILY 09/09/19 08/23/22 isosorbide mononitrate 30 mg 30 mg PO DAILY 09/09/19 08/23/22 tablet,extended release 24 hr ranolazine 500 mg tablet,extended 500 mg PO Q12H 09/24/19 08/23/22 release,12 hr (Ranexa) cetirizine 10 mg tablet (All Day 10 mg PO DAILY 12/26/19 08/23/22 Allergy (cetirizine)) furosemide 80 mg tablet 40 mg PO BID 02/02/20 08/23/22 calcium acetate(phosphat bind) 667 667 mg PO QID 03/31/20 08/23/22 mg capsule famotidine 40 mg tablet 40 mg PO HS 03/31/20 08/23/22 atorvastatin 80 mg tablet 80 mg PO HS 11/26/20 08/23/22 colchicine 0.6 mg tablet (Colcrys) 0.6 mg PO QMWF 11/26/20 08/23/22 omeprazole 20 mg capsule,delayed 20 mg PO QAM 11/26/20 08/23/22 release docusate sodium 100 mg capsule 100 mg PO DAILY PRN Constipation 06/02/22 08/23/22 icosapent ethyl 1 gram capsule 1 g PO BID 06/02/22 08/23/22 (Vascepa) metoprolol tartrate 25 mg tablet 12.5 mg PO BID 07/23/22 08/23/22 Allergies Allergy/AdvReac Type Severity Reaction Status Date / Time allopurinol Allergy Severe Other Verified 11/19/22 19:19 iohexol Allergy Severe Difficulty Verified 11/19/22 19:19 [From CONTRAST - CT, XRAY] Breathing ticagrelor Allergy Intermediate Rash Verified 11/19/22 19:19 Review of Systems Review of Systems: All systems reviewed & are unremarkable except as noted in HPI and below PMFSH Past Medical History Medical History Acute non-ST elevation myocardial infarction (NSTEMI) Anemia in chronic kidney disease Anxiety Arthritis Congestive heart failure Echocardiogram May 2017 EF of 50% with hypokinetic apical, inferior and basal inferior lateral segment, mild enlargement of left atrium. Coronary artery disease With history of several stents. Followed by [facility]. Deep venous thrombosis Chronic right popliteal DVT. Diabetes mellitus with hyperosmolarity without hyperglycemic hyperosmolar nonketotic coma Diabetic peripheral neuropathy Diabetic retinopathy DKA (diabetic ketoacidosis) Elevated LFTs End-stage renal disease on peritoneal dialysis Essential hypertension Fracture left lower ext Gastroesophageal reflux disease Gout Hyperlipidemia Hypokalemia Hyponatremia Obstructive sleep apnea With inconsistent CPAP use. Paroxysmal atrial fibrillation The patient denies Peritoneal dialysis catheter in place Renal osteodystrophy Secondary hyperparathyroidism of renal origin Seizure X1 with etiology unknown Type 1 diabetes mellitus Onset around age 13. Surgical History Surgical History (Reviewed 11/19/22
[2022-12-10 18:21] LABS: Lactic Acid Reflex 2.7 mmol/L (0.7-2.0)
[2022-12-10] MEDS: INSULIN HUMAN REGULAR (*BKC) 100 UNITS/ML 12 UNITS IV PUSH (18:25)
[2022-12-10] MEDS: INSULIN HUMAN REGULAR (*BKC) 100 UNITS in SODIUM CHLORIDE 0.9% IV 99 ML 16.1 UNITS IV CONT (18:26)
--- NOTE | 2022-12-10 18:30 | PM.IMHP ---
H&P: HPI History of Present Illness Date/Time: 12/10/22 18:30 Chief Complaint: High blood sugar. Narrative: This is a pleasant 52-year-old male with type 1 diabetes mellitus with history of diabetic ketoacidosis, coronary artery disease, hypertension, obstructive sleep apnea, paroxysmal atrial fibrillation, and end-stage renal disease on peritoneal dialysis presented to the emergency department from home for evaluation of hyperglycemia. He changed his Dexcom an insulin pump yesterday evening and he went to bed an hour so thereafter. Reportedly it takes his Dexcom a couple of hours ?to warm up? and he was asleep at the time his glucose started to rise. When he got up this morning his mouth was very dry and he was feeling nauseated and reports having several episodes of emesis. At that time he noticed that his Dexcom was unable to record his glucose because it was so high and he came in for evaluation. He thinks he may have slept on his arm, causing his insulin pump to become kinked. Random glucose on arrival was 866. His labs were also significant for a sodium of 124, potassium 4.3, chloride 86, carbon dioxide 21, anion gap 17, beta hydroxybutyrate 1.06. Urine showed 3+ glucose but was negative for ketones. Given the inability to hydrate this gentleman aggressively, he has been started on an insulin drip and is being admitted to the ICU to get his glucose to a more normal range. At the time my evaluation he has no specific complaints. He does mention being started on amoxicillin about 5 days ago for cold symptoms to include sinus congestion, runny nose, and cough occasionally productive of light yellow phlegm. He denies fever, chills, sweats, sore throat, chest pain, pleuritic pain, shortness a breath, and diarrhea. Review of Systems Review of Systems: Twelve systems were reviewed. He did have some mild chest discomfort this morning which he states is not unusual for when his sugars high. He took a nitroglycerin and it has resolved. He has not had a recurrence of these symptoms. Again this is not necessarily new for him. He still urinates, denies dysuria. Except as documented, all other systems were reviewed and are negative. [facility] Past Medical History Medical History (Updated 12/10/22 @ 22:35 by Betsey Posada PA-C) Acute non-ST elevation myocardial infarction (NSTEMI) Anemia in chronic kidney disease Anxiety Arthritis Chronic anticoagulation Congestive heart failure Echocardiogram May 2017 EF of 50% with hypokinetic apical, inferior and basal inferior lateral segment, mild enlargement of left atrium. Coronary artery disease With history of several stents. Followed by [facility]. Deep venous thrombosis Chronic right popliteal DVT. Diabetic peripheral neuropathy Diabetic retinopathy Elevated LFTs End-stage renal disease on peritoneal dialysis Essential hypertension Gastroesophageal reflux disease Gout Hyperlipidemia Obstructive sleep apnea With inconsistent CPAP use. Paroxysmal atrial fibrillation Renal osteodystrophy Secondary hyperparathyroidism of renal origin Seizure X1 with etiology unknown Type 1 diabetes mellitus Onset around age 13. Surgical History Surgical History (Updated 12/10/22 @ 22:24 by Betsey Posada PA-C) History of anterior cruciate ligament surgery (2000) Left knee History of appendectomy (2006) History of arthroscopy of left knee History of bilateral carpal tunnel release Right 05/03/2018. Left 06/02/2018. History of cardiac catheterization 01/21/[address] [facility], Dr. Hoover done: Little change from prior catheterization. Patent stents in the RCA and PDA. Previously jailed posterolateral is occluded and development of a 50% stenosis of a branch of om 1. Normal LV function. :August 2019 demonstrated patent stents with 40% stenosis of 1 vessel with no stents or angioplasty performed per patient report. :November 2018 at [facility] - stent x
[2022-12-10 18:35] LABS: Glucose Point of Care > 500 mg/dl (65-105)
[2022-12-10 19:13] LABS: Glucose Point of Care > 500 mg/dl (65-105)
--- NOTE | 2022-12-10 19:20 | PC.NURSE ---
Report received from LUAN Rodriguez. Assumed care of patient at this time.
[2022-12-10 19:49] LABS: Glucose Point of Care > 500 mg/dl (65-105)
[2022-12-10 20:48] LABS: Glucose Point of Care > 500 mg/dl (65-105)
--- NOTE | 2022-12-10 21:05 | PC.NURSE ---
2101 Attempted to call report, spoke to LUAN Cain. She stated Mera is the nurse that is getting the patient and she will call back.
[2022-12-10 21:07] LABS: Reflex Lactic Acid Yes or No Add Lactic
[2022-12-10 21:37] LABS: Lactic Acid 3.2 mmol/L (0.7-2.0)
[2022-12-10 21:59] LABS: Glucose Point of Care 313 mg/dl (65-105)
--- NOTE | 2022-12-10 22:15 | ADMGEN ---
This patient, Juvenal Daigle Jr., was admitted to Intensive Care Unit-11. Patient/family oriented to hospital policies and general routines including ID bracelet, bed and alarms, visiting hours, pain management, procedures, bathroom and other care routines, personal items, smoking policy, room service/diet, and visiting hours. Information on how to activate the Rapid Response Team has been discussed. Patient/Family are encouraged to report perceived risks to care and to ask questions if they do not understand what they are told or what they should do.
[2022-12-10 23:06] LABS: Glucose Point of Care 210 mg/dl (65-105)
[2022-12-10 23:40] LABS: Anion Gap 11 mmol/L (8-16); Blood Urea Nitrogen 65 mg/dL (9-20); Calcium 8.6 mg/dL (8.4-10.2); Carbon Dioxide 28 mmol/L (22-30); Chloride 89 mmol/L (98-107); Estimated CRCL calculation 16 ml/min; Estimated Glomerular Filt Rate 9; Glucose 178 mg/dL (65-110); Magnesium 1.8 mg/dL (1.6-2.3); Phosphorus 4.5 mg/dL (2.5-4.5); Potassium 3.5 mmol/L (3.4-5.0); Sodium 128 mmol/L (137-145)
[2022-12-11] VITALS (18 sets, daily range): BP systolic 118–170; BP diastolic 50–123; PULSE 60–75; RESP 16–20; TEMP 36.6–37; O2SAT 96–100
[2022-12-11 00:16] LABS: Hemoglobin A1C 8.8 % (<5.7)
[2022-12-11 01:10] LABS: Glucose Point of Care 105 mg/dl (65-105)
[2022-12-11] MEDS: METOPROLOL TARTRATE 25 MG TABLET PO ×3 (01:11→21:31)
[2022-12-11 03:11] LABS: Hematocrit 29.7 % (42.0-52.0); Hemoglobin 10.5 g/dL (14.0-18.0); Mean Corpuscular HGB Conc 35.4 g/dl (32-36); Mean Corpuscular Hemoglobin 30.4 pg (26-34); Mean Corpuscular Volume 86.1 fl (80-100); Mean Platelet Volume 9.7 fl (7.4-10.4); Platelet Count Result 176 k/mm3 (150-375); Red Blood Count 3.45 M/mm3 (4.6-6.20); Red Cell Distribution Width 12.9 % (11.5-14.5); White Blood Count 7.3 K/mm3 (4.5-10.0)
[2022-12-11 03:31] LABS: Alanine Aminotransferase 36 U/L (6-50); Albumin Level 3.4 g/dL (3.5-5.1); Alkaline Phosphatase 95 U/L (38-126); Anion Gap 11 mmol/L (8-16); Aspartate Amino Transferase 30 U/L (17-59); Bilirubin,Total 1.2 mg/dL (0.2-1.3); Blood Urea Nitrogen 67 mg/dL (9-20); Calcium 8.1 mg/dL (8.4-10.2); Carbon Dioxide 26 mmol/L (22-30); Chloride 90 mmol/L (98-107); Estimated CRCL calculation 17 ml/min; Estimated Glomerular Filt Rate 9; Glucose 178 mg/dL (65-110); Magnesium 1.7 mg/dL (1.6-2.3); Potassium 3.8 mmol/L (3.4-5.0); Sodium 127 mmol/L (137-145)
[2022-12-11 07:26] LABS: Anion Gap 11 mmol/L (8-16); Blood Urea Nitrogen 69 mg/dL (9-20); Calcium 8.2 mg/dL (8.4-10.2); Carbon Dioxide 25 mmol/L (22-30); Chloride 90 mmol/L (98-107); Estimated CRCL calculation 16 ml/min; Estimated Glomerular Filt Rate 9; Glucose 365 mg/dL (65-110); Potassium 4.2 mmol/L (3.4-5.0); Sodium 126 mmol/L (137-145)
[2022-12-11 07:36] LABS: Appearance Urine Clear (Clear); Bilirubin Urine Negative (Negative); Blood Urine Negative (Negative); Color Urine Yellow (Yellow); Glucose Urine UA 3+ mg/dL (Negative); Ketones Urine Negative (Negative); Leukocyte Esterase Ur Negative LEU/UL (NEGATIVE); Nitrate Urine Negative (Negative); Protein Urine Negative (Negative); Specific Grav Ur 1.015 (1.001-1.035); Urobilinogen Urine 0.2 mg/dL (<2.0)
[2022-12-11 07:37] LABS: Add Urine Microscopic? NO
[2022-12-11] MEDS: RANOLAZINE 500 MG TAB.ER.12H PO ×2 (08:27→21:31)
[2022-12-11] MEDS: OMEGA 3 POLYUNSAT FATTY ACIDS 1 GM CAP 2 GM PO ×2 (08:27→16:07)
[2022-12-11] MEDS: FUROSEMIDE 40 MG TABLET 120 MG PO ×2 (08:28→16:07)
[2022-12-11] MEDS: CALCIUM ACETATE 667 MG TABLET PO ×4 (08:28→21:31)
[2022-12-11] MEDS: ISOSORBIDE MONONITRATE 30 MG TAB.ER.24H PO (08:28)
[2022-12-11] MEDS: FAMOTIDINE 20 MG TABLET PO (08:28)
[2022-12-11] MEDS: LORATADINE 10 MG TABLET PO (08:28)
[2022-12-11] MEDS: calcitrioL 0.25 MCG CAPSULE PO (08:28)
[2022-12-11] MEDS: EZETIMIBE 10 MG TABLET PO (08:28)
[2022-12-11] MEDS: CLOPIDOGREL BISULFATE 75 MG TABLET PO (08:28)
[2022-12-11] MEDS: APIXABAN 5 MG TABLET PO ×2 (08:28→16:07)
[2022-12-11] MEDS: AMOXICILLIN/CLAVULANATE K 875-125 MG TAB 1 TABLET PO (08:29)
[2022-12-11 08:34] LABS: Glucose Point of Care 362 mg/dl (65-105)
--- NOTE | 2022-12-11 08:48 | PM.CNNEP ---
Assessment and Plan Assessment and plan (1) Hypertension: Code(s): I10 - Essential (primary) hypertension Status: Acute Assessment and Plan: The patient has hypertension. His systolic is ranging from the 120s to 170s. He takes metoprolol for this. He is not allergic to Kenan inhibitors. Will start this because of his congestive heart failure. (2) Diabetic ketoacidosis: Code(s): E11.10 - Type 2 diabetes mellitus with ketoacidosis without coma Status: Acute Assessment and Plan: On an insulin drip. Getting supportive care. (3) End-stage renal disease on peritoneal dialysis: Code(s): N18.6 - End stage renal disease; Z99.2 - Dependence on renal dialysis Status: Acute Assessment and Plan: Will continue dialysis tonight. (4) Secondary hyperparathyroidism of renal origin: Code(s): N25.81 - Secondary hyperparathyroidism of renal origin Status: Acute Assessment and Plan: Will check a phosphorus level in the morning (5) Obstructive sleep apnea: Code(s): G47.33 - Obstructive sleep apnea (adult) (pediatric) Status: Chronic Assessment and Plan: He intermittently uses his CPAP machine (6) Anemia in chronic kidney disease: Code(s): N18.9 - Chronic kidney disease, unspecified; D63.1 - Anemia in chronic kidney disease Status: Chronic Assessment and Plan: Hemoglobin is 10.5. Will start him on some Epogen (7) Congestive heart failure: Code(s): I50.9 - Heart failure, unspecified Status: Acute Assessment and Plan: EF 50%. Will start KENAN-inhibitor peer (8) Hyponatremia: Code(s): E87.1 - Hypo-osmolality and hyponatremia Status: Acute Assessment and Plan: Sodium level is low mostly because of the high sugars. (9) Paroxysmal atrial fibrillation: Code(s): I48.0 - Paroxysmal atrial fibrillation Status: Acute Assessment and Plan: He is on metoprolol and apixaban. History of Present Illness Reason for Consult Consult date: 12/11/22 Chief Complaint Chief complaint: hyperglycemia History of Present Illness Narrative: Juvenal is a very pleasant 52-year-old gentleman who has multiple medical problems including end-stage renal disease on peritoneal dialysis under the care of Dr. Leandro Reyes who asked me to see the patient today, diabetes status post DKA in the past and currently has it, coronary disease, hypertension, sleep apnea, paroxysmal atrial fibrillation, anxiety, arthritis, renal osteodystrophy, anemia of chronic kidney disease, GERD, gout, sleep apnea and does not always use a CPAP machine and history of seizures. He sees cardiology frequently. He saw the special procedures nurse within the last couple of weeks and things checked out fine. He says that he went to see his primary care doctor because he had an upper respiratory infection about 10 days ago. He was given antibiotics and a cough suppressant but not steroids. he denies any fevers or chills cough urinary issues or other signs of infection. He has no abdominal pain. His fluid has been clear. He did have 1 episode of chest pain yesterday which is common when he has high sugars. He took a nitro and went to wake right away. The patient came in because of high blood sugars. He was seen in the emergency room and found to be in DKA. He was moved up to the ICU and placed on an insulin drip. It turns out that his Glucose pump tubing was kinked PMFSH Past Medical History Medical History (Updated 12/11/22 @ 08:51 by Sourav Rodriguez MD) Acute non-ST elevation myocardial infarction (NSTEMI) Anemia in chronic kidney disease Anxiety Arthritis Chronic anticoagulation Congestive heart failure Echocardiogram May 2017 EF of 50% with hypokinetic apical, inferior and basal inferior lateral segment, mild enlargement of left atrium. Coronary artery disease With history of several stents. Followed by [facility]
--- NOTE | 2022-12-11 09:55 | PM.PNNEP ---
Subjective Date/time seen: 12/11/22 09:55 Interval history: the patient is on Peritoneal dialysis. fluid is clear and flows are good. He was seen at 9:00 a.m. Objective Data Vital Signs Vital Signs: Vital Signs - 24 hr 12/10/22 16:19 12/10/22 17:47 12/10/22 18:00 Temperature 98 F Pulse Rate 70 71 67 Respiratory Rate 18 17 15 Blood Pressure 147/71 H Pulse Oximetry 100 100 Oxygen Delivery Room Air 12/10/22 18:15 12/10/22 18:30 12/10/22 18:45 Temperature Pulse Rate 67 65 65 Respiratory Rate 18 13 11 L Blood Pressure Pulse Oximetry 99 100 99 Oxygen Delivery 12/10/22 19:00 12/10/22 19:15 12/10/22 19:30 Temperature Pulse Rate 65 67 64 Respiratory Rate 17 14 18 Blood Pressure Pulse Oximetry 99 100 Oxygen Delivery 12/10/22 19:36 12/10/22 19:37 12/10/22 19:45 Temperature Pulse Rate 67 65 65 Respiratory Rate 21 H 14 13 Blood Pressure 135/79 Pulse Oximetry 100 100 100 Oxygen Delivery 12/10/22 20:03 12/10/22 20:15 12/10/22 20:17 Temperature Pulse Rate 65 64 64 Respiratory Rate 17 18 17 Blood Pressure 154/59 H Pulse Oximetry 96 100 99 Oxygen Delivery 12/10/22 20:30 12/10/22 20:45 12/10/22 21:01 Temperature Pulse Rate 65 68 67 Respiratory Rate 16 18 20 Blood Pressure Pulse Oximetry 99 100 100 Oxygen Delivery 12/10/22 21:10 12/10/22 21:15 12/10/22 21:16 Temperature Pulse Rate 68 68 67 Respiratory Rate 19 18 18 Blood Pressure 137/86 159/66 H Pulse Oximetry 99 98 98 Oxygen Delivery 12/10/22 22:32 12/10/22 22:32 12/10/22 21:39 Temperature 98 F Pulse Rate 72 72 72 Respiratory Rate 18 20 Blood Pressure 143/68 H Pulse Oximetry 100 100 Oxygen Delivery Room Air 12/10/22 22:00 12/11/22 01:11 12/11/22 00:00 Temperature 98.1 F Pulse Rate 68 64 68 Respiratory Rate 20 Blood Pressure 153/65 H Pulse Oximetry 98 Oxygen Delivery 12/11/22 00:00 12/11/22 00:00 12/11/22 02:00 Temperature 98.2 F Pulse Rate 68 68 60 Respiratory Rate 18 20 Blood Pressure 128/74 Pulse Oximetry 100 100 Oxygen Delivery Room Air 12/11/22 02:00 12/11/22 02:15 12/11/22 04:00 Temperature Pulse Rate 60 63 Respiratory Rate 16 Blood Pressure 118/53 L Pulse Oximetry 100 100 Oxygen Delivery Room Air 12/11/22 04:00 12/11/22 04:00 12/11/22 06:00 Temperature 97.9 F Pulse Rate 63 63 64 Respiratory Rate 16 20 Blood Pressure 145/50 H Pulse Oximetry 100 96 Oxygen Delivery Room Air 12/11/22 06:00 12/11/22 08:00 12/11/22 08:00 Temperature 97.9 F Pulse Rate 64 65 Respiratory Rate 20 17 Blood Pressure 154/64 H 170/69 H Pulse Oximetry 99 99 Oxygen Delivery Room Air 12/11/22 08:27 12/11/22 08:32 Temperature 98.6 F Pulse Rate 67 Respiratory Rate Blood Pressure Pulse Oximetry Oxygen Delivery Intake/Output Intake/Output: Intake & Output 12/08/22 12/09/22 12/10/22 12/11/22 23:59 23:59 23:59 23:59 Intake Total 400 Output Total 400 500 Balance -400 -100 Meds/Results Medications: Active Medications Generic Name Dose Route Start Last Admin Trade Name Freq PRN Reason Stop Dose Admin Acetaminophen 650 mg 12/10/22 22:33 Acetaminophen 325 Mg Tablet PO Q6H PRN Mild Pain (1-3) or Fever Amoxicillin/Clavulanate Potassium 1 tablet 12/11/22 09:00 12/11/22 08:29 Amoxicillin/Clavulanate K 875-125 Mg Tab PO 12/14/22 23:59 1 tablet DAILY ASHLEY Administration Apixaban 5 mg 12/11/22 09:00 12/11/22 08:28 Apixaban 5 Mg Tablet PO 5 mg BID ASHLEY Administration Atorvastatin Calcium 80 mg 12/11/22 21:00 Atorvastatin 40 Mg Tablet PO [facility] Calcitriol 0.25 mcg 12/11/22 09:00 12/11/22 08:28 Calcitriol 0.25 Mcg Capsule PO 0.25 mcg [facility] Administration Calcium Acetate 667 mg 12/11/22 09:00 12/11/22 08:28 Calcium Acetate 667 Mg Tablet PO 667 mg QID ASHLEY Administration Clopidogrel Bisulfate
[2022-12-11 10:39] LABS: Glucose Point of Care 399 mg/dl (65-105)
[2022-12-11] MEDS: lisinopriL 10 MG TABLET PO (11:13)
[2022-12-11] MEDS: INSULIN GLARGINE (*BKC) 100 UNITS/ML 35 UNITS SUB-Q (11:18)
--- NOTE | 2022-12-11 11:47 | PM.IMPN ---
Progress Note: A&P Assessment and Plan (1) Type 1 diabetes mellitus with hyperglycemia: Code(s): E10.65 - Type 1 diabetes mellitus with hyperglycemia Status: Acute Assessment and Plan: Continue insulin. (2) End-stage renal disease on peritoneal dialysis: Code(s): N18.6 - End stage renal disease; Z99.2 - Dependence on renal dialysis Status: Acute Assessment and Plan: Dr. Reyes consulted. He recommends holding peritoneal dialysis this evening as the dialysate contains glucose; he has no critical electrolyte abnormalities. (3) Hyponatremia: Code(s): E87.1 - Hypo-osmolality and hyponatremia Status: Acute Assessment and Plan: Pseudohyponatremia; sodium is 136 when collected for glucose. (4) Chronic anemia: Code(s): D64.9 - Anemia, unspecified Status: Acute Assessment and Plan: Stable on review of previous labs. (5) Elevated lactic acid level: Code(s): R79.89 - Other specified abnormal findings of blood chemistry Status: Acute Assessment and Plan: Likely due to lab draw technique. He has had cold symptoms for 5 or more days but is not toxic in appearance and he is nearing the end of his amoxicillin course. Lung sounds are clear making pneumonia unlikely. Abdominal exam is unremarkable. (6) Chronic anticoagulation: Code(s): Z79.01 - watermaster (current) use of anticoagulants Status: Acute Assessment and Plan: Continue apixaban. Documented history of paroxysmal atrial fibrillation though the patient does not think this is accurate. He does have a history of chronic lower extremity DVT. (7) Pneumonia: Code(s): J18.9 - Pneumonia, unspecified organism Status: Acute Assessment and Plan: ? Oral antibiotics Respiratory status is ok Subjective Date/time seen: 12/11/22 11:47 No complaints Exam Narrative: General: Mildly ill, nontoxic-appearing male in the semi-Lara position in bed in no acute distress. Weight: 123.2 kg. BMI: 39.0. HEENT: PERRL, EOMI. Sclera anicteric. Tacky mucous membranes. Neck: Supple. Respiratory: Lungs are clear to auscultation bilaterally. Cardiovascular: Regular rate and rhythm with S1-S2. Gastrointestinal: Abdomen is soft, nontender, and nondistended with positive bowel sounds. PD catheter in left lower quadrant. Skin: Warm and dry. No rash or lesions on limited exam. Chronic hyperpigmentation of the lower legs bilaterally. Extremities: No cyanosis or clubbing. Chronic pitting and nonpitting edema of the lower legs. Peripheral pulses intact, decreased in the lower extremities. Neurological: Alert and oriented. Cranial nerves 2-12 are grossly intact. No gross focal deficits to casual conversation. Psychiatric: Pleasant and cooperative with normal mood and affect. Judgment and insight intact. Objective Data Vital Signs Vital Signs: Vital Signs - 24 hr 12/10/22 16:19 12/10/22 17:47 12/10/22 18:00 Temperature 98 F Pulse Rate 70 71 67 Respiratory Rate 18 17 15 Blood Pressure 147/71 H Pulse Oximetry 100 100 Oxygen Delivery Room Air 12/10/22 18:15 12/10/22 18:30 12/10/22 18:45 Temperature Pulse Rate 67 65 65 Respiratory Rate 18 13 11 L Blood Pressure Pulse Oximetry 99 100 99 Oxygen Delivery 12/10/22 19:00 12/10/22 19:15 12/10/22 19:30 Temperature Pulse Rate 65 67 64 Respiratory Rate 17 14 18 Blood Pressure Pulse Oximetry 99 100 Oxygen Delivery 12/10/22 19:36 12/10/22 19:37 12/10/22 19:45 Temperature Pulse Rate 67 65 65 Respiratory Rate 21 H 14 13 Blood Pressure 135/79 Pulse Oximetry 100 100 100 Oxygen Delivery 12/10/22 20:03 12/10/22 20:15 12/10/22 20:17 Temperature Pulse Rate 65 64 64 Respiratory Rate 17 18 17 Blood Pressure 154/59 H Pulse Oximetry 96 100 99 Oxygen Delivery 12/10/22 20:30 12/10/22 20:45 12/10/22 21:01 Temperature Pulse Rate 65 68 67 Respira
[2022-12-11] MEDS: INSULIN ASPART (*BKC) 100 UNITS/ML SUB-Q ×2 (12:01→16:39)
[2022-12-11 12:06] LABS: Glucose Point of Care 346 mg/dl (65-105)
--- NOTE | 2022-12-11 13:05 | WPDCNINT ---
Assessment and Plan Assessment and plan (1) Diabetic ketoacidosis: Code(s): E11.10 - Type 2 diabetes mellitus with ketoacidosis without coma Status: Acute Assessment and Plan: Patient presented with diabetic ketoacidosis after his insulin pump was not working and is dexcom, was not registering the blood glucose levels - In the ER blood sugars were 866, elevated anion gap and elevated beta hydroxybutyrate (2) End-stage renal disease on peritoneal dialysis: Code(s): N18.6 - End stage renal disease; Z99.2 - Dependence on renal dialysis Status: Acute Assessment and Plan: ESRD on PD Nephrology following PD tonight per Dr Rodriguez Plan DVT prophylaxis: Eliquis Stress ulcer prophylaxis: protonix Nutrition: Diabteic diet Code Status: Full Code Critical Care Time Spent: 45 minutes Due to a high probability of clinically significant, life threatening deterioration, the patient required my highest level of preparedness to intervene emergently and I personally spent this critical care time directly and personally managing the patient. This critical care time included obtaining a history; examining the patient; pulse oximetry; ordering and review of studies; arranging urgent treatment with development of a management plan; evaluation of patient's response to treatment; frequent reassessment; and discussions with other providers. It was exclusive of separately billable procedures and treating other patients and teaching time. Please see Assessment and Plan section and the rest of the note for further information on patient assessment and treatment This dictation may have been done utilizing a voice recognition system. Attempts have been made to correct errors. However, there may be uncorrected grammatical, spelling, and recognitions errors present. Keycase Assembler Consult Note Consult date: 12/11/22 Reason for consult: Diabetic ketoacidosis HPI: Juvenal Daigle JrSharath is a 52 year old male with history of end-stage renal disease on peritoneal dialysis, still makes urine, diabetes x1 with history of DKA, CAD/IN with multiple stents, essential hypertension, obstructive sleep apnea, paroxysmal atrial fibrillation, presented the ED on 12/10/2022 with complains of hyperglycemia. According the patient and the records he changed his Dexcom and insulin pump any evening prior to arrival to the ICU, he stated that his insulin pump was not working as it may have taking it since he thought he slept on his arm. He complained of nausea, vomiting and decreased oral intake, was diagnosed with DKA in the ER, since he is on peritoneal dialysis, ER physician spoke to the food service technician and the decided not to give any IV fluids which is to start him on insulin infusion and transferred to the ICU. He had an elevated anion gap of 17, blood sugars of 866, potassium of 4.3, sodium of 124, CO2 of 21, elevated beta hydroxybutyrate and urine analysis showed 3+ glucose but no ketones. Patient seen and examined the ICU this morning, overnight his blood sugars tube improved significantly on the insulin infusion, insulin infusion was turned off and patient was placed back on his insulin pump. Patient states he feels much better, denies any nausea, vomiting, abdominal pain, diarrhea, chest pain, shortness of breath. He was able to tolerate his breakfast this morning. Review of Systems Review of Systems: All systems reviewed & are unremarkable except as noted in HPI and below PMFSH Past Medical History Medical History (Updated 12/11/22 @ 11:49 by Abelardo Hawley MD) Acute non-ST elevation myocardial infarction (NSTEMI) Anemia in chronic kidney disease Anxiety Arthritis Chronic anticoagulation Congestive heart failure Echocardiogram May 2017 EF of 50% with hypokinetic apical, inferior and basal inferior lateral segment, mild enlargement of left atrium. Coronary artery disease With history of several stents. Followed by [facility] and
--- NOTE | 2022-12-11 16:13 | PC.NURSE ---
Patient's personal Insulin pump DC'd at 10:00 AM today 12/11/21 per provider request. BGL 399 and 362, troubleshooting of insulin pump per the group home paraprofessional. Insulin Gargline and Insulin Aspart started for patient, BGL at aprx 12:00 pm was 346. Patient's Dexcom remains in place, dexcom at 12:00pm is reading 358. Patient unsure of his insulin pump working.
[2022-12-11 16:29] LABS: Glucose Point of Care 271 mg/dl (65-105)
--- NOTE | 2022-12-11 17:00 | PC.NURSE ---
This patient, Juvenal Rodriguez Pilo Brock, was received from [ [id number]] on 12/11/22 at 1635. Patient/family oriented to unit policies and routines
[2022-12-11] MEDS: PANTOPRAZOLE 40 MG TABLET PO (17:02)
--- NOTE | 2022-12-11 17:14 | PC.NURSE ---
This patient, Juvenal Daigle Jr., was transferred to [address] [place] [address] on 12/11/22 at 1634. Personal belongings sent with patient. Report given to LUAN Way. Appropriate documentation sent with patient.
[2022-12-11 20:16] LABS: Glucose Point of Care 313 mg/dl (65-105)
[2022-12-11] MEDS: ATORVASTATIN 40 MG TABLET 80 MG PO (21:31)
[2022-12-12 06:00] VITALS: BP 172/71; PULSE 62; RESP 16; TEMP 36.4; O2SAT 98
[2022-12-12 06:18] LABS: Basophils Percent Auto 0.5 % (0.2-1.2); Eosinophils Absolute Auto 0.2 K/mm3 (0-0.3); Eosinophils Percent Auto 4.6 % (0-4.4); Hematocrit 30.4 % (42.0-52.0); Hemoglobin 10.8 g/dL (14.0-18.0); Immature Granulocyte Absolute 0.01 K/mm3 (0.00-0.031); Immature Granulocyte Percent A 0.3 % (0-0.5); Lymphocytes Absolute Auto 1.73 K/mm3 (0.9-3.2); Lymphocytes Percent Auto 44.6 % (18.3-44.2); Mean Corpuscular HGB Conc 35.5 g/dl (32-36); Mean Corpuscular Hemoglobin 30.4 pg (26-34); Mean Corpuscular Volume 85.6 fl (80-100); Mean Platelet Volume 9.3 fl (7.4-10.4); Monocytes Absolute Auto 0.4 K/mm3 (0.1-0.6); Monocytes Percent Auto 10.6 % (2.6-8.5); Neutrophils Absolute Auto 1.5 K/mm3 (1.3-6.7); Neutrophils Percent Auto 39.4 % (45.5-73.1); Platelet Count Result 143 k/mm3 (150-375); Red Blood Count 3.55 M/mm3 (4.6-6.20); Red Cell Distribution Width 12.9 % (11.5-14.5); White Blood Count 3.9 K/mm3 (4.5-10.0)
[2022-12-12 07:00] VITALS: BP 172/71; PULSE 62; RESP 16; TEMP 36.4
[2022-12-12 08:21] LABS: Glucose Point of Care 494 mg/dl (65-105)
[2022-12-12] MEDS: CALCIUM ACETATE 667 MG TABLET PO (08:25)
[2022-12-12] MEDS: EZETIMIBE 10 MG TABLET PO (08:25)
[2022-12-12] MEDS: LORATADINE 10 MG TABLET PO (08:25)
[2022-12-12] MEDS: RANOLAZINE 500 MG TAB.ER.12H PO (08:25)
[2022-12-12] MEDS: FAMOTIDINE 20 MG TABLET PO (08:25)
[2022-12-12 08:26] VITALS: PULSE 94
[2022-12-12] MEDS: OMEGA 3 POLYUNSAT FATTY ACIDS 1 GM CAP 2 GM PO (08:26)
[2022-12-12] MEDS: lisinopriL 5 MG TABLET PO (08:26)
[2022-12-12] MEDS: COLCHICINE 0.6 MG TABLET PO (08:26)
[2022-12-12] MEDS: AMOXICILLIN/CLAVULANATE K 875-125 MG TAB 1 TABLET PO (08:26)
[2022-12-12] MEDS: METOPROLOL TARTRATE 25 MG TABLET PO (08:26)
[2022-12-12] MEDS: ERGOCALCIFEROL 50,000 UNITS CAPSULE 50000 UNITS PO (08:26)
[2022-12-12] MEDS: CLOPIDOGREL BISULFATE 75 MG TABLET PO (08:26)
[2022-12-12] MEDS: APIXABAN 5 MG TABLET PO (08:27)
[2022-12-12] MEDS: ISOSORBIDE MONONITRATE 30 MG TAB.ER.24H PO (08:27)
[2022-12-12] MEDS: FUROSEMIDE 40 MG TABLET 120 MG PO (08:27)
[2022-12-12] MEDS: INSULIN ASPART (*BKC) 100 UNITS/ML 10 UNITS SUB-Q (08:32)
[2022-12-12] MEDS: EPOETIN ALFA-EPBX 10,000 UNITS/ML VIAL 10000 UNITS SUB-Q (08:33)
[2022-12-12] MEDS: calcitrioL 0.25 MCG CAPSULE PO (08:33)
[2022-12-12 10:58] LABS: Alanine Aminotransferase 33 U/L (6-50); Albumin Level 3.1 g/dL (3.5-5.1); Alkaline Phosphatase 87 U/L (38-126); Anion Gap 8 mmol/L (8-16); Aspartate Amino Transferase 31 U/L (17-59); Bilirubin,Total 1.1 mg/dL (0.2-1.3); Blood Urea Nitrogen 63 mg/dL (9-20); Calcium 8.3 mg/dL (8.4-10.2); Carbon Dioxide 28 mmol/L (22-30); Chloride 90 mmol/L (98-107); Estimated CRCL calculation 18 ml/min; Estimated Glomerular Filt Rate 10; Glucose 470 mg/dL (65-110); Magnesium 1.7 mg/dL (1.6-2.3); Phosphorus 5.3 mg/dL (2.5-4.5); Potassium 3.5 mmol/L (3.4-5.0); Sodium 126 mmol/L (137-145)
--- NOTE | 2022-12-12 11:07 | PM.DS ---
DS: Admitting Diagnosis Discharge Date December 12, 2022 Admitting Diagnosis DKA DS: Discharge Diagnosis Discharge Diagnosis (1) Diabetic ketoacidosis: Code(s): E11.10 - Type 2 diabetes mellitus with ketoacidosis without coma Status: Acute Assessment and Plan: Patient presented with diabetic ketoacidosis after his insulin pump was not working and is dexcom, was not registering the blood glucose levels - In the ER blood sugars were 866, elevated anion gap and elevated beta hydroxybutyrate (2) End-stage renal disease on peritoneal dialysis: Code(s): N18.6 - End stage renal disease; Z99.2 - Dependence on renal dialysis Status: Acute Assessment and Plan: ESRD on PD Nephrology following PD tonight per Dr Rodriguez Plan DVT prophylaxis: Eliquis Stress ulcer prophylaxis: protonix Nutrition: Diabteic diet Code Status: Full Code Critical Care Time Spent: 45 minutes Due to a high probability of clinically significant, life threatening deterioration, the patient required my highest level of preparedness to intervene emergently and I personally spent this critical care time directly and personally managing the patient. This critical care time included obtaining a history; examining the patient; pulse oximetry; ordering and review of studies; arranging urgent treatment with development of a management plan; evaluation of patient's response to treatment; frequent reassessment; and discussions with other providers. It was exclusive of separately billable procedures and treating other patients and teaching time. Please see Assessment and Plan section and the rest of the note for further information on patient assessment and treatment This dictation may have been done utilizing a voice recognition system. Attempts have been made to correct errors. However, there may be uncorrected grammatical, spelling, and recognitions errors present. DS: Summary Hospital Course Hospital Course: Admitted for elevated blood sugar and mild DKA. Patient was in the ICU on IV insulin. Blood sugars are now improved gap is closed. Tolerating diet he can be discharged home Time Spent with Patient Time attestation: Total time spent providing and/or coordinating discharge services: Exam Narrative: General: Pleasant gentleman in no acute distress HEENT:? Pupils are equally reactive, sclera is clear, moist oral mucosa Neck:? Supple and thick Respiratory:? Clear to auscultation bilaterally, no wheezing, adequate air entry Cardiac:? S1-S2 was normal, regular rate and rhythm Abdomen:? Soft, nontender, nondistended, obese, left lower quadrant peritoneal dialysis and place, area is free of erythema, warmth or drainage Extremities:? Bilateral lower extremity pitting edema Neuro:? Patient is awake, alert, oriented x3, nonfocal Skin:? No lesions noted Psych:? Normal mentation and affect DS: Data Data Completed and Pending Labs on day of discharge: Labs from last 24 hours 12/12/22 12/12/22 12/12/22 08:01 06:06 06:06 WBC 3.9 L RBC 3.55 L Hgb 10.8 L Hct 30.4 L MCV 85.6 MCH 30.4 MCHC 35.5 RDW 12.9 Plt Count 143 L MPV 9.3 Immature Gran % (Auto) 0.3 Neut % (Auto) 39.4 L Lymph % (Auto) 44.6 H Lawrence % (Auto) 10.6 H Eos % (Auto) 4.6 H Baso % (Auto) 0.5 Lymph # (Auto) 1.73 Lawrence # (Auto) 0.4 Eos # (Auto) 0.2 Baso # (Auto) 0.0 Abs Immat Gran (auto) 0.01 Absolute Neuts (auto) 1.5 Absolute Nucleated RBC 0.0 Nucleated RBC % 0.0 Sodium 126 L Potassium 3.5 Chloride 90 L Carbon Dioxide 28 Anion Gap 8 BUN 63 H Creatinine 5.70 H Estim Creat Clear Calc 18 Estimated GFR 10 L Glucose 470 H POC Capillary Glucose 494 H Calcium 8.3 L Phosphorus 5.3 H Magnesium 1.7 Total Bilirubin 1.1 AST 31 ALT 33 Alkaline Phosphatase 87 Total Protein 6.0 L Albumin 3.1 L 12/11/22 12/11/22 12/11/22 20:06 16:26
[2022-12-12 11:52] VITALS: BMI 37.7
== END 2022-12-12 11:40 | disposition home or self-care (01) | DRG 637 ==
LOC: ANHED 18:19 → ANHICU 21:26 → ANH3MEDSUR 12-11 16:55
PROVIDERS: Emergency Medicine; Internal Medicine; Physician Assistant; Admitting Provider Internal Medicine; Emergency Provider Emergency Medicine; PCP Family Medicine; Visit Provider Chiropractor
DX: E10.10 Type 1 diabetes mellitus with ketoacidosis without coma (principal); N18.6 End stage renal disease; J18.9 Pneumonia, unspecified organism; I13.2 Hypertensive heart and chronic kidney disease with heart failure and with stage 5 chronic kidney disease, or end stage renal disease; N25.81 Secondary hyperparathyroidism of renal origin; E87.1 Hypo-osmolality and hyponatremia; E10.65 Type 1 diabetes mellitus with hyperglycemia; E10.22 Type 1 diabetes mellitus with diabetic chronic kidney disease; I25.10 Atherosclerotic heart disease of native coronary artery without angina pectoris; I50.9 Heart failure, unspecified; N25.0 Renal osteodystrophy; I48.0 Paroxysmal atrial fibrillation; G47.33 Obstructive sleep apnea (adult) (pediatric); E78.5 Hyperlipidemia, unspecified; E10.319 Type 1 diabetes mellitus with unspecified diabetic retinopathy without macular edema; M19.90 Unspecified osteoarthritis, unspecified site; D63.1 Anemia in chronic kidney disease; I25.2 Old myocardial infarction; Z95.5 Presence of coronary angioplasty implant and graft; Z86.718 Personal history of other venous thrombosis and embolism; Z90.49 Acquired absence of other specified parts of digestive tract; Z98.49 Cataract extraction status, unspecified eye; Z96.1 Presence of intraocular lens; Z79.01 Long term (current) use of anticoagulants; Z99.2 Dependence on renal dialysis
CPT/HCPCS: 36415; 71045; 80048; 80053; 81001; 81003; 82010; 82948; 83036; 83605; 83735; 84100; 85025; 85027; 87040; 90945; 99285; A9270; G0378; J0360; J1815; Q5105

== ENCOUNTER 2023-01-12 22:00 | Emergency (ER) | payer MEDICARE, MEDICAID, SELFPAY ==
--- NOTE | ~2023-01-12 | XR_ITS ---
EXAMINATION: XR chest 1V portable DATE: 01/12/2023 22:28 INDICATION: Upper respiratory infection. TECHNIQUE: A single frontal view of the chest was obtained. COMPARISON: Chest single view 12/11/2022, CT abdomen and pelvis 06/02/2022 FINDINGS: There is no pneumonia, pleural effusion, or pneumothorax. The heart size is normal. IMPRESSION: 1. No acute cardiopulmonary disease. Reviewed, dictated and finalized at location E.
[2023-01-12 22:03] VITALS: BP 143/65; PULSE 88; RESP 20; TEMP 37.3; O2SAT 100
[2023-01-12] MEDS: ACETAMINOPHEN 500 MG TABLET 1000 MG PO (22:40)
--- NOTE | 2023-01-12 22:45 | ED.GENADULT ---
HPI - General Adult General Chief complaint: Upper Respiratory Infection Stated complaint: cough Time Seen by Provider: 01/12/23 22:13 History of Present Illness HPI narrative: This is a 52-year-old gentleman with multiple medical comorbidities presenting ED with chief complaint of flu-like symptoms. For last several days he has been having headache, subjective fevers, Sore throat, dry cough and some nausea. He has not taken anything for his symptoms. He denies chest pain, shortness of breath, abdominal pain urinary symptoms or diarrhea. He is vaccinated against COVID and flu. No sick contacts at home. Related Data Home Medications Medication Instructions Recorded Confirmed calcitriol 0.25 mcg capsule 0.25 mcg PO QAM 06/04/19 12/19/22 clopidogrel 75 mg tablet 75 mg PO DAILY 06/04/19 12/19/22 ergocalciferol (vitamin D2) 1,250 50,000 unit PO WEEKLY 06/04/19 12/19/22 mcg (50,000 unit) capsule (Vitamin D2) nitroglycerin 0.4 mg sublingual 0.4 mg sublingual Q5-15M PRN Chest 06/04/19 12/19/22 tablet Pain ezetimibe 10 mg tablet (Zetia) 10 mg PO DAILY 09/09/19 12/19/22 isosorbide mononitrate 30 mg 30 mg PO DAILY 09/09/19 12/19/22 tablet,extended release 24 hr ranolazine 500 mg tablet,extended 500 mg PO Q12H 09/24/19 12/19/22 release,12 hr (Ranexa) cetirizine 10 mg tablet (All Day 10 mg PO DAILY 12/26/19 12/19/22 Allergy (cetirizine)) furosemide 80 mg tablet 120 mg PO BID 02/02/20 12/19/22 calcium acetate(phosphat bind) 667 667 mg PO QID 03/31/20 12/19/22 mg capsule famotidine 40 mg tablet 40 mg PO DAILY 03/31/20 12/19/22 atorvastatin 80 mg tablet 80 mg PO HS 11/26/20 12/19/22 colchicine 0.6 mg tablet (Colcrys) 0.6 mg PO QMWF 11/26/20 12/19/22 omeprazole 20 mg capsule,delayed 20 mg PO QPM 11/26/20 12/19/22 release docusate sodium 100 mg capsule 100 mg PO DAILY PRN Constipation 06/02/22 12/19/22 icosapent ethyl 1 gram capsule 2 g PO BID 06/02/22 12/19/22 (Vascepa) metoprolol tartrate 25 mg tablet 25 mg PO BID 07/23/22 12/19/22 Allergies Allergy/AdvReac Type Severity Reaction Status Date / Time allopurinol Allergy Severe Other Verified 01/12/23 22:00 iohexol Allergy Severe Difficulty Verified 01/12/23 22:00 [From CONTRAST - CT, XRAY] Breathing ticagrelor Allergy Intermediate Rash Verified 01/12/23 22:00 [facility] Past Medical History Medical History Acute non-ST elevation myocardial infarction (NSTEMI) Anemia in chronic kidney disease Anxiety Arthritis Chronic anticoagulation Congestive heart failure Echocardiogram May 2017 EF of 50% with hypokinetic apical, inferior and basal inferior lateral segment, mild enlargement of left atrium. Coronary artery disease With history of several stents. Followed by [facility]. Deep venous thrombosis Chronic right popliteal DVT. Diabetic peripheral neuropathy Diabetic retinopathy Elevated LFTs End-stage renal disease on peritoneal dialysis Essential hypertension Gastroesophageal reflux disease Gout Hyperlipidemia Obstructive sleep apnea With inconsistent CPAP use. Paroxysmal atrial fibrillation Renal osteodystrophy Secondary hyperparathyroidism of renal origin Seizure X1 with etiology unknown Type 1 diabetes mellitus Onset around age 13. Surgical History Surgical History History of anterior cruciate ligament surgery (2000) Left knee History of appendectomy (2006) History of arthroscopy of left knee History of bilateral carpal tunnel release Right 05/03/2018. Left 06/02/2018. History of cardiac catheterization 01/21/[address] [facility], Dr. Hoover done: Little change from prior catheterization. Patent stents in the RCA and PDA. Previously jailed posterolateral is occluded and development of a 50% stenosis of a branch of om 1. Normal LV function. :August 2019 demonstrated patent stents with 40% sten
[2023-01-12] MEDS: guaiFENesin/DEXTROMETHORPHAN 10 ML UDC PO (22:49)
[2023-01-12] MEDS: ALBUTEROL SULFATE NEB 2.5 MG/3 ML INH 5 MG INHALATION (22:50)
[2023-01-12] MEDS: IPRATROPIUM BR 0.02% INH SOLN 0.5 MG/2.5 ML VIAL 1 MG INHALATION (22:50)
[2023-01-12 22:53] LABS: Strep Group A RT-PCR NOT DETECTED (Negative)
[2023-01-12 22:55] VITALS: PULSE 81; RESP 20
[2023-01-12 23:04] LABS: Influenza A QL RT-PCR Negative (Negative); Influenza B QL RT-PCR Negative (Negative); SARS-CoV-2 RNA PCR Negative (Negative)
[2023-01-12 23:15] LABS: Glucose Point of Care 303 mg/dl (65-105)
[2023-01-12 23:18] VITALS: PULSE 82; RESP 20
[2023-01-12 23:38] LABS: Basophils Percent Auto 0.5 % (0.2-1.2); Eosinophils Absolute Auto 0.1 K/mm3 (0-0.3); Eosinophils Percent Auto 1.2 % (0-4.4); Hematocrit 33.6 % (42.0-52.0); Hemoglobin 11.7 g/dL (14.0-18.0); Immature Granulocyte Absolute 0.01 K/mm3 (0.00-0.031); Immature Granulocyte Percent A 0.2 % (0-0.5); Lymphocytes Absolute Auto 1.98 K/mm3 (0.9-3.2); Lymphocytes Percent Auto 46.8 % (18.3-44.2); Mean Corpuscular HGB Conc 34.8 g/dl (32-36); Mean Corpuscular Hemoglobin 30.2 pg (26-34); Mean Corpuscular Volume 86.8 fl (80-100); Mean Platelet Volume 9.2 fl (7.4-10.4); Monocytes Absolute Auto 0.8 K/mm3 (0.1-0.6); Monocytes Percent Auto 17.7 % (2.6-8.5); Neutrophils Absolute Auto 1.4 K/mm3 (1.3-6.7); Neutrophils Percent Auto 33.6 % (45.5-73.1); Platelet Count Result 140 k/mm3 (150-375); Red Blood Count 3.87 M/mm3 (4.6-6.20); White Blood Count 4.2 K/mm3 (4.5-10.0)
[2023-01-12 23:48] LABS: Alanine Aminotransferase 43 U/L (6-50); Albumin Level 3.4 g/dL (3.5-5.1); Alkaline Phosphatase 113 U/L (38-126); Anion Gap 7 mmol/L (8-16); Aspartate Amino Transferase 42 U/L (17-59); Bilirubin,Total 0.7 mg/dL (0.2-1.3); Blood Urea Nitrogen 56 mg/dL (9-20); Carbon Dioxide 29 mmol/L (22-30); Chloride 95 mmol/L (98-107); Estimated CRCL calculation 19 ml/min; Estimated Glomerular Filt Rate 11; Glucose 306 mg/dL (65-110); Potassium 3.4 mmol/L (3.4-5.0); Sodium 131 mmol/L (137-145)
== END 2023-01-13 00:30 | disposition home or self-care (01) ==
PROVIDERS: Emergency Provider Emergency Medicine; PCP Family Medicine
DX: J20.9 Acute bronchitis, unspecified (principal); Z20.822 Contact with and (suspected) exposure to COVID-19; I13.2 Hypertensive heart and chronic kidney disease with heart failure and with stage 5 chronic kidney disease, or end stage renal disease; N18.6 End stage renal disease; E10.22 Type 1 diabetes mellitus with diabetic chronic kidney disease; I50.9 Heart failure, unspecified; I25.2 Old myocardial infarction; D63.1 Anemia in chronic kidney disease; I25.10 Atherosclerotic heart disease of native coronary artery without angina pectoris; Z86.718 Personal history of other venous thrombosis and embolism; N25.0 Renal osteodystrophy; N25.81 Secondary hyperparathyroidism of renal origin; E10.42 Type 1 diabetes mellitus with diabetic polyneuropathy; E10.319 Type 1 diabetes mellitus with unspecified diabetic retinopathy without macular edema; K21.9 Gastro-esophageal reflux disease without esophagitis; M10.9 Gout, unspecified; F41.9 Anxiety disorder, unspecified; Z99.2 Dependence on renal dialysis; Z98.49 Cataract extraction status, unspecified eye; Z96.1 Presence of intraocular lens; Z79.4 Long term (current) use of insulin; Z79.01 Long term (current) use of anticoagulants
CPT/HCPCS: 36415; 71045; 80053; 82948; 85025; 87636; 87651; 94640; 96372; 99283; A9270; J1100

== ENCOUNTER 2023-02-06 16:30 | Outpatient (RCR) | payer MEDICARE, MEDICAID, SELFPAY ==
[2022-10-21 15:42] VITALS: PULSE 72
[2022-11-07 15:40] LABS: Glucose Point of Care 94 mg/dl (65-105)
[2022-12-21 16:35] LABS: Glucose Point of Care 169 mg/dl (65-105)
[2022-12-21 17:28] LABS: Glucose Point of Care 105 mg/dl (65-105)
--- NOTE | 2023-05-20 04:44 | PM.IMHP ---
H&P: HPI History of Present Illness Date/Time: 05/20/23 04:44 Chief Complaint: patient transferred from [facility] to our hospital to be evaluated for chest pain and CKD Narrative: He is an unfortunate 52 years old white male with chronic medical issues, CKD on peritoneal dialysis and CAD status post 5 stents placement, who is complaining of intermittent retrosternal chest pain for last 7 days. Patient was seen by his international sales representative last week with complains of intermittent chest pressure. His BP was found to be in uncontrolled and his BP medicine was adjusted. He still complains of intermittent chest pain intensity 4-5 out of time located in the anterior chest radiating to the back without any palpitations or sweating. He got concerned and went to [facility] ER. Workup was done which shows minimally elevated troponins. Because of his CKD needs, the fact that he is established with our Hospital, he has been transferred to us for follow-up with nephrology and cardiology for evaluation. I saw and evaluated the patient upon arrival. His chest pain is now down to 1-2/10. He is not in any distress. We will place him in observation to be followed up by Cardiology and Nephrology in the morning. Review of Systems Review of Systems: he denies any palpitations, fever rigor chills, nausea vomiting, dizziness, loss of consciousness, abdominal pain or any blurred vision All systems reviewed & are unremarkable except as noted in HPI and below PMFSH Past Medical History Medical History Acute non-ST elevation myocardial infarction (NSTEMI) Anemia in chronic kidney disease Anxiety Arthritis Chronic anticoagulation Congestive heart failure Echocardiogram May 2017 EF of 50% with hypokinetic apical, inferior and basal inferior lateral segment, mild enlargement of left atrium. Coronary artery disease With history of several stents. Followed by [facility]. Deep venous thrombosis Chronic right popliteal DVT. Diabetic peripheral neuropathy Diabetic retinopathy Elevated LFTs End-stage renal disease on peritoneal dialysis Essential hypertension Gastroesophageal reflux disease Gout Hyperlipidemia Obstructive sleep apnea With inconsistent CPAP use. Paroxysmal atrial fibrillation Renal osteodystrophy Secondary hyperparathyroidism of renal origin Seizure X1 with etiology unknown Type 1 diabetes mellitus Onset around age 13. Surgical History Surgical History History of anterior cruciate ligament surgery (2000) Left knee History of appendectomy (2006) History of arthroscopy of left knee History of bilateral carpal tunnel release Right 05/03/2018. Left 06/02/2018. History of cardiac catheterization 01/21/2021 catheterization at [facility], Dr. Hoover done: Little change from prior catheterization. Patent stents in the RCA and PDA. Previously jailed posterolateral is occluded and development of a 50% stenosis of a branch of om 1. Normal LV function. :August 2019 demonstrated patent stents with 40% stenosis of 1 vessel with no stents or angioplasty performed per patient report. :November 2018 at [facility] - stent x3. :March 2017 demonstrating mild diffuse coronary disease 80% lesion small sub branch of obtuse marginal 1 and 90% stenosis distal RCA into the origin of the PDA with PTCA and stent to the RPDA/distal RCA performed by Dr. Petit. History of cataract extraction With lens implant History of coronary angioplasty with insertion of stent Drug-eluting stents for high-grade OM 99% occlusion 05/2022. History of hernia repair History of open reduction and internal fixation (ORIF) procedure (1982) Left lower extremity fracture. And the right hip pinning when he was in the 8th grade Peritoneal dialysis catheter in place Family History Family History ([place]
--- NOTE | 2023-05-20 07:00 | ECG_ITS ---
Measurements Intervals [place] Rate: 70 P: 55 MI: 188 QRS: -43 QRSD: 132 T: 107 QT: 449 QTc: 487 Interpretive Statements SINUS RHYTHM LEFT AXIS DEVIATION INTRAVENTRICULAR CONDUCTION DELAY BORDERLINE ST-T WAVE ABNORMALITY- HIGH LATERAL LEADS BORDERLINE ECG COMPARED TO ECG 06/03/2022 08:51:51 NO SIGNIFICANT CHANGES Electronically Signed On 05-20-2023 20:27:38 CDT by Doc Dorantes D.O.
== END 2023-02-06 23:59 | disposition home or self-care (01) ==
LOC: ANHCPREHAB 16:30
PROVIDERS: PCP Family Medicine; Visit Provider Internal Medicine Cardiovascular Disease
DX: I25.2 Old myocardial infarction (principal)
CPT/HCPCS: 93798

== ENCOUNTER 2023-02-10 11:06 | Outpatient (CLI) | payer MEDICARE, MEDICAID, SELFPAY ==
[2023-02-10 11:19] LABS: Hematocrit 43.3 % (42.0-52.0); Hemoglobin 14.7 g/dL (14.0-18.0); Mean Corpuscular HGB Conc 33.9 g/dl (32-36); Mean Corpuscular Hemoglobin 30.1 pg (26-34); Mean Corpuscular Volume 88.5 fl (80-100); Mean Platelet Volume 8.7 fl (7.4-10.4); Platelet Count Result 209 k/mm3 (150-375); Red Blood Count 4.89 M/mm3 (4.6-6.20); Red Cell Distribution Width 12.9 % (11.5-14.5); White Blood Count 5.6 K/mm3 (4.5-10.0)
[2023-02-10 11:25] LABS: Blood Urea Nitrogen 39 mg/dL (8-26); Carbon Dioxide 28 mmol/L (22-30); Chloride 104 mmol/L (98-109); Estimated Glomerular Filt Rate 12; Glucose 95 mg/dL (70-105); Ionized Calcium (POC) 1.18 mmol/L (1.11-1.31); Potassium 3.7 mmol/L (3.5-4.9); Sodium 143 mmol/L (138-146)
== END 2023-02-10 11:07 | disposition home or self-care (01) ==
LOC: ANHLAB 11:09
PROVIDERS: PCP Family Medicine; Visit Provider Internal Medicine Hematology & Oncology
DX: Z86.718 Personal history of other venous thrombosis and embolism (principal)
CPT/HCPCS: 36415; 80047; 85027

== ENCOUNTER 2023-05-20 04:42 | Observation (INO) | payer MEDICARE, MEDICAID, SELFPAY ==
[2023-05-20] VITALS (11 sets, daily range): BP systolic 141–155; BP diastolic 62–78; PULSE 62–78; RESP 16–21; TEMP 36.2–37.1; O2SAT 95–100; BMI 38.2
--- NOTE | 2023-05-20 03:03 | ADMGEN ---
0235 This patient, Juvenal Daigle Jr., was admitted to IMU Room 202-01. Patient/family oriented to hospital policies and general routines including ID bracelet, bed and alarms, visiting hours, pain management, procedures, bathroom and other care routines, personal items, smoking policy, room service/diet, and visiting hours. Information on how to activate the Rapid Response Team has been discussed. Patient/Family are encouraged to report perceived risks to care and to ask questions if they do not understand what they are told or what they should do.
--- NOTE | 2023-05-20 03:09 | ADMGEN ---
This patient, Juvenal Daigle Jr., was admitted to IMU Room 202- at 0235. Patient/family oriented to hospital policies and general routines including ID bracelet, bed and alarms, visiting hours, pain management, procedures, bathroom and other care routines, personal items, smoking policy, room service/diet, and visiting hours. Information on how to activate the Rapid Response Team has been discussed. Patient/Family are encouraged to report perceived risks to care and to ask questions if they do not understand what they are told or what they should do.
--- NOTE | 2023-05-20 04:57 | HP_ITS ---
This report was moved to the correct visit on 05/29/2023. Original report was signed by Gonzalez Alford MD on 05/20/23 0457. H&P: HPI History of Present Illness Date/Time: 05/20/23 04:44 Chief Complaint: patient transferred from [facility] to our hospital to be evaluated for chest pain and CKD Narrative: He is an unfortunate 52 years old white male with chronic medical issues, CKD on peritoneal dialysis and CAD status post 5 stents placement, who is complaining of intermittent retrosternal chest pain for last 7 days. Patient was seen by his benefits consultant last week with complains of intermittent chest pressure. His BP was found to be in uncontrolled and his BP medicine was adjusted. He still complains of intermittent chest pain intensity 4-5 out of time located in the anterior chest radiating to the back without any palpitations or sweating. He got concerned and went to [facility] ER. Workup was done which shows minimally elevated troponins. Because of his CKD needs, the fact that he is established with our Hospital, he has been transferred to us for follow- up with nephrology and cardiology for evaluation. I saw and evaluated the patient upon arrival. His chest pain is now down to 1-2/10. He is not in any distress. We will place him in observation to be followed up by Cardiology and Nephrology in the morning. Review of Systems Review of Systems: he denies any palpitations, fever rigor chills, nausea vomiting, dizziness, loss of consciousness, abdominal pain or any blurred vision All systems reviewed & are unremarkable except as noted in HPI and below PMFSH Past Medical History Medical History Acute non-ST elevation myocardial infarction (NSTEMI) Anemia in chronic kidney disease Anxiety Arthritis Chronic anticoagulation Congestive heart failure Echocardiogram May 2017 EF of 50% with hypokinetic apical, inferior and basal inferior lateral segment, mild enlargement of left atrium. Coronary artery disease With history of several stents. Followed by [facility]. Deep venous thrombosis Chronic right popliteal DVT. Diabetic peripheral neuropathy Diabetic retinopathy Elevated LFTs End-stage renal disease on peritoneal dialysis Essential hypertension Gastroesophageal reflux disease Gout Hyperlipidemia Obstructive sleep apnea With inconsistent CPAP use. Paroxysmal atrial fibrillation Renal osteodystrophy Secondary hyperparathyroidism of renal origin Seizure X1 with etiology unknown Type 1 diabetes mellitus Onset around age 13. Surgical History Surgical History History of anterior cruciate ligament surgery (2000) Left knee History of appendectomy (2006) History of arthroscopy of left knee History of bilateral carpal tunnel release Right 05/03/2018. Left 06/02/2018. History of cardiac catheterization 01/21/2021 catheterization at [facility], Dr. Hoover done: Little change from prior catheterization. Patent stents in the RCA and PDA. Previously jailed posterolateral is occluded and development of a 50% stenosis of a branch of om 1. Normal LV function. :August 2019 demonstrated patent stents with 40% stenosis of 1 vessel with no stents or angioplasty performed per patient report. :November 2018 at [facility] - stent x3. :March 2017 demonstrating mild diffuse coronary disease 80% lesion small sub branch of obtuse marginal 1 and 90% stenosis distal RCA into the origin of the PDA with PTCA and stent to the RPDA/distal RCA performed by Dr. Petit. History of cataract extraction With lens implant History of coronar
[2023-05-20 08:01] LABS: Glucose Point of Care 143 mg/dl (65-105)
[2023-05-20] MEDS: OMEGA 3 POLYUNSAT FATTY ACIDS 1 GM CAP 2 GM PO (09:23)
[2023-05-20] MEDS: calcitrioL 0.25 MCG CAPSULE PO (09:23)
[2023-05-20] MEDS: RANOLAZINE 500 MG TAB.ER.12H PO (09:23)
[2023-05-20] MEDS: FUROSEMIDE 40 MG TABLET 120 MG PO (09:23)
[2023-05-20] MEDS: ISOSORBIDE MONONITRATE 30 MG TAB.ER.24H PO (09:23)
[2023-05-20] MEDS: LORATADINE 10 MG TABLET PO (09:24)
[2023-05-20] MEDS: CALCIUM ACETATE 667 MG TABLET PO ×2 (09:24→12:57)
[2023-05-20] MEDS: APIXABAN 2.5 MG TABLET PO (09:24)
[2023-05-20] MEDS: FAMOTIDINE 20 MG TABLET 40 MG PO (09:24)
[2023-05-20] MEDS: CLOPIDOGREL BISULFATE 75 MG TABLET PO (09:24)
[2023-05-20] MEDS: METOPROLOL SUCCINATE EXT REL 50 MG TABCR PO (09:24)
[2023-05-20] MEDS: EZETIMIBE 10 MG TABLET PO (09:24)
[2023-05-20 11:44] LABS: Glucose Point of Care 322 mg/dl (65-105)
--- NOTE | 2023-05-20 12:03 | PM.CNCAR ---
Assessment and Plan Assessment and plan (1) Chest pain with moderate risk for cardiac etiology: Code(s): R07.9 - Chest pain, unspecified Status: Acute Plan This is a 52-year-old man who has chronic coronary artery disease previous very complicated high-risk PCI that was done in his dominant circumflex just about a year ago over at [place] as I summarized in my note. He has been having intermittent episodes of atypical sounding chest pain for about a week or 10 days. He does report that he bench in these symptoms to his established shirring tender in the office who was obviously not concerned enough to admitted more conduct an ischemia evaluation. I would share that opinion at this point I do not think his current symptoms are related to active or/unstable myocardial ischemia. It was not upon my opinion last night in the emergency room at [facility] that he needs to be hospitalized for a cardiac evaluation. If this gentleman does present to the hospital with obvious it ACS he should be hospitalized at a tertiary care center where very high risk PCI can be done as I mentioned in my note from last year. I do not believe the current symptoms are related to unstable ischemia and at this point I believe he can be followed up with his established shirring tender. He does not require a follow-up angiogram at this hospital in my opinion Abelardo Petit MD [facility] History of Present Illness History of Present Illness Consult date/time: 05/20/23 12:03 Reason For Visit: chest pain Narrative: This is a 52-year-old man I am seeing at the request of the hospitalist because of chest pain. He is known to have chronic coronary artery disease and receives his cardiovascular care elsewhere. Despite the fact that he receives cardiovascular care elsewhere he has had many admissions here at [facility]. The patient went to the hospital in [place] yesterday with intermittent episodes of chest pain he describes what sounds again very atypical history of pain that sometimes occurs in the center of the chest radiates sometimes to the left side sometimes to the right side and is nonexertional in nature. The patient became very concerned and anxious about the symptoms because of his history and went there to the emergency room last evening. They were going to admit him to the hospital for evaluation of this. Patient also has chronic end-stage renal disease and is on peritoneal dialysis. Apparently they do not do any inpatient dialysis services at that hospital so he was transferred here to [facility]. He is relatively comfortable in the IMU today and does not offer any other complaints. He has a history of coronary artery disease with previous percutaneous revascularization. We saw this patient here at [facility] with unstable ischemic chest pain in May of 2022. He was found to have left coronary dominant circulation with heavily calcified left coronary artery there was high-grade stenosis at the ostium of the circumflex, in the mid shaft of the circumflex and in the major OM branch. Because of heavy calcific disease in this left dominant circumflex with proximity of the proximal lesion to the left main it was not felt to be reasonably safe to proceed with PCI of this at this hospital. He was transferred over to [place]. It is good that he was transferred there because intervention was done there successfully but it was technically challenging difficult and complicated. He underwent shockwave treatment of the circumflex initially for a treatment of the heavily calcified vessel. He then underwent stenting of the OM and the long drug-eluting stent in the AV groove portion of the circumflex back the left main using a kissing balloon technique. During the procedure he decompensated and had to be emergently intubated and after the procedure an Impella device was placed for support and treatment of cardiogenic shock. He was in their ICU for a nu
[2023-05-20] MEDS: ACETAMINOPHEN 325 MG TABLET 650 MG PO (13:01)
--- NOTE | 2023-05-20 13:47 | PM.DS ---
DS: Admitting Diagnosis Discharge Date 05/20/23 Admitting Diagnosis Chest pain DS: Discharge Diagnosis Discharge Diagnosis (1) Chest pain with moderate risk for cardiac etiology: Code(s): R07.9 - Chest pain, unspecified Status: Acute (2) Hyperlipidemia: Qualifiers: Hyperlipidemia type: unspecified Qualified Code(s): E78.5 - Hyperlipidemia, unspecified Code(s): E78.5 - Hyperlipidemia, unspecified Status: Chronic (3) Type 1 diabetes mellitus with hyperglycemia, with long-term current use of insulin: Code(s): E10.65 - Type 1 diabetes mellitus with hyperglycemia Status: Chronic DS: Summary Hospital Course Reason for hospitalization: chest pain, elevated troponin Hospital Course: Patient is a 52-year-old male with past medical history of CKD and ESRD on peritoneal dialysis, CAD status post 5 stents, insulin-dependent type 1 diabetic with insulin pump presents to ED with some chest discomfort nonexertional. Patient's cardiology had been recently adjusting his medications making uncontrolled hypertension was leading to his chest discomfort. He went to the [facility] ED and was found to have minimally elevated troponins. Because of his CKD he could not be admitted to [facility] and was transferred to [facility] for further evaluation. Patient's symptoms minimize spontaneously to 1-2/10 nonexertional on the right side of his chest nonradiating. He is seen by cardiology consulted with reviewed patient's case. Patient had high risk PCI done at [facility] 05/2022 very had a technically difficult PCI with 2 stents placed in calcified circumflex. Patient's hospitalization was complicated with cardiogenic shock and ICU hospitalization ventilator. Cardiology Dr. Petit believes patient's symptoms do not warrant further coronary evaluation at this time. Patient will keep blood pressure log and follow-up with his construction equipment overhauler in 1 week. At time of discharge patient's labs are stable, vitals stable, patient is stable for discharge home. Patient understands and agrees with plan Status at Discharge Cognitive/behavioral status at discharge: baseline Time Spent with Patient Time attestation: Total time spent providing and/or coordinating discharge services: 35 Exam Narrative: - GENERAL: Pleasant obese male in no acute distress. - EYES: EOMI. Anicteric. - HENT: Moist mucous membranes. - LUNGS: Clear to auscultation bilaterally, no wheezing, rhonchi, or rales. - CARDIOVASCULAR: Regular rate and rhythm. No murmur. No JVD. - ABDOMEN: Soft, non-tender and non-distended. No palpable masses. - EXTREMITIES: No edema. Peripheral pulses 2+. Non-tender. - NEUROLOGIC: No focal neurological deficits. CN II-XII grossly intact. - PSYCHIATRIC: Awake, Alert and oriented x 3. Appropriate mood and affect. - SKIN: No rashes or lesions. Warm. - LYMPH: No cervical lymphadenopathy. DS: Data Data Completed and Pending Labs on day of discharge: Labs from last 24 hours 05/20/23 05/20/23 11:23 07:51 POC Capillary Glucose 322 H 143 H Discharge Plan Discharge Attending physician on discharge: Jeremiah Dickson Consulting providers: Leandro Reyes; Abelardo Petit Discharging Clinician: Jeremiah Dickson Anticipated Discharge Date/Time: 05/20/23 13:45 Patient Disposition: Home, Self-Care Activity: may shower Diet: heart healthy Discharge Instructions: Please follow-up with your construction equipment overhauler for ongoing management of your coronary disease. No new prescriptions. Patient Instructions: Apixaban (By mouth), Heart Failure (DC), Chest Pain (DC), Safe Use of Anticoagulants (DC) Patient Language: Latvian Stand Alone Forms: General Discharge Information Follow-up/Referrals: Hamlet Ortega Jr., MD [Physician] - 1 Week Discharge Medications: Continued calcitriol 0.25 mcg Capsule 0.25 mcg PO QAM clopidogrel 75 mg Tablet 75 mg PO DAILY ergoca
== END 2023-05-20 14:25 | disposition home or self-care (01) ==
PROVIDERS: Admitting Provider Family Medicine; PCP Family Medicine; Visit Provider Student in an Organized Health Care Education/Training Program
DX: R07.9 Chest pain, unspecified (principal); I25.10 Atherosclerotic heart disease of native coronary artery without angina pectoris; Z95.5 Presence of coronary angioplasty implant and graft; E78.5 Hyperlipidemia, unspecified; E10.65 Type 1 diabetes mellitus with hyperglycemia; I13.2 Hypertensive heart and chronic kidney disease with heart failure and with stage 5 chronic kidney disease, or end stage renal disease; E10.22 Type 1 diabetes mellitus with diabetic chronic kidney disease; N18.6 End stage renal disease; I50.9 Heart failure, unspecified; D63.1 Anemia in chronic kidney disease; I48.0 Paroxysmal atrial fibrillation; Z99.2 Dependence on renal dialysis; I25.2 Old myocardial infarction; K59.00 Constipation, unspecified; M10.9 Gout, unspecified; F41.9 Anxiety disorder, unspecified; E10.40 Type 1 diabetes mellitus with diabetic neuropathy, unspecified; E10.319 Type 1 diabetes mellitus with unspecified diabetic retinopathy without macular edema; K21.9 Gastro-esophageal reflux disease without esophagitis; G47.33 Obstructive sleep apnea (adult) (pediatric); Z99.89 Dependence on other enabling machines and devices; Z86.718 Personal history of other venous thrombosis and embolism; Z79.51 Long term (current) use of inhaled steroids; Z79.4 Long term (current) use of insulin; Z79.1 Long term (current) use of non-steroidal anti-inflammatories (NSAID); Z79.01 Long term (current) use of anticoagulants; Z79.02 Long term (current) use of antithrombotics/antiplatelets; Z79.899 Other long term (current) drug therapy; Z82.49 Family history of ischemic heart disease and other diseases of the circulatory system
CPT/HCPCS: 82948; 93005; A9270; G0378; G0379

== ENCOUNTER 2023-07-25 14:06 | Observation (INO) | payer MEDICARE, MEDICAID, SELFPAY ==
[2023-07-25] VITALS (8 sets, daily range): BP systolic 93–163; BP diastolic 57–72; PULSE 68–83; RESP 14–18; TEMP 36.4–36.5; O2SAT 97–100; BMI 36.6; BMI 37.9
--- NOTE | ~2023-07-25 | XR_ITS ---
EXAMINATION: XR chest 2V 07/25/2023 15:49 INDICATION: Persistent cough. RSV. PROCEDURE: 2 view chest COMPARISON: Comparison to multiple prior studies sequentially, with oldest reviewed study dated 12/09. FINDINGS: The lungs are clear. The cardiomediastinal silhouette is within normal limits. There are no pleural effusions. There is no pneumothorax suspected. IMPRESSION: 1: NO ACUTE CARDIOPULMONARY DISEASE. Reviewed, dictated and finalized at location [facility]
[2023-07-25 14:51] LABS: Influenza A QL RT-PCR Negative (Negative); Influenza B QL RT-PCR Negative (Negative); RSV RNA, RT-PCR Positive (Negative); SARS-CoV-2 RNA PCR Negative (Negative)
--- NOTE | 2023-07-25 15:56 | ED.URI ---
HPI - URI/Sore Throat General Chief Complaint: Upper Respiratory Infection <ALISIA Shaw Last Filed: 07/25/23 16:24> Stated Complaint: URI <ALISIA Shaw Last Filed: 07/25/23 16:24> Time Seen by Provider: 07/25/23 15:35 <ALISIA Shaw Last Filed: 07/25/23 16:24> Source: patient <ALISIA Shaw Last Filed: 07/25/23 16:24> Mode of arrival: ambulatory <ALISIA Shaw Last Filed: 07/25/23 16:24> Limitations: no limitations <ALISIA Shaw Last Filed: 07/25/23 16:24> History of Present Illness HPI Narrative: Patient is a 52 y/o male, with PMH of CHF, DMI, CAD with multiple stents, AFIB on Eliquis, ESRD on peritoneal dialysis, who presents to the ED with c/o URI sx's. Patient reports having persistent cough, congestion, rhinorrhea, myalgias for the past 3 weeks. He reports having mild wheezing and difficulty breathing over the last couple days which prompted him to come to the ED. Denies previous Hx of asthma, COPD. Denies fevers. Denies CP. Patient did complete a z-pack within the last week w/o improvement. He was also Rx'd amoxicillin by his PCP but has not picked this up from the pharmacy yet. <ALISIA Shaw Last Filed: 07/25/23 16:24> Patient is a 52 y/o male, with PMH of CHF, DMI, CAD with 5 stents, AFIB on Eliquis, ESRD on peritoneal dialysis, who presents to the ED with c/o URI sx's. Patient reports having persistent cough, congestion, rhinorrhea, myalgias for the past 3 weeks. He reports having mild wheezing and difficulty breathing over the last couple days which prompted him to come to the ED. Denies previous Hx of asthma, COPD. Denies fevers. Denies CP. Patient did complete a z-pack within the last week w/o improvement. He was also Rx'd amoxicillin by his PCP but has not picked this up from the pharmacy yet. States he has had a cough with clear and yellow sputum. No hemoptysis. He tried Tylenol a few times. <Suzanne Vega MD - Last Filed: 07/27/23 18:24> Related Data Home Medications: Home Medications Medication Instructions Recorded Confirmed calcitriol 0.25 mcg capsule 0.25 mcg PO QAM 06/04/19 07/25/23 clopidogrel 75 mg tablet 75 mg PO DAILY 06/04/19 07/25/23 ergocalciferol (vitamin D2) 1,250 50,000 unit PO WEEKLY 06/04/19 07/25/23 mcg (50,000 unit) capsule (Vitamin D2) nitroglycerin 0.4 mg sublingual 0.4 mg sublingual Q5-15M PRN Chest 06/04/19 07/25/23 tablet Pain ezetimibe 10 mg tablet (Zetia) 10 mg PO DAILY 09/09/19 07/25/23 isosorbide mononitrate 30 mg 30 mg PO DAILY 09/09/19 07/25/23 tablet,extended release 24 hr ranolazine 500 mg tablet,extended 500 mg PO Q12H 09/24/19 07/25/23 release,12 hr (Ranexa) cetirizine 10 mg tablet (All Day 10 mg PO DAILY 12/26/19 07/25/23 Allergy (cetirizine)) furosemide 80 mg tablet 120 mg PO BID 02/02/20 07/25/23 famotidine 40 mg tablet 40 mg PO DAILY 03/31/20 07/25/23 atorvastatin 80 mg tablet 80 mg PO HS 11/26/20 07/25/23 colchicine 0.6 mg tablet (Colcrys) 0.6 mg PO QMWF 11/26/20 07/25/23 icosapent ethyl 1 gram capsule 2 g PO BID 06/02/22 07/25/23 (Vascepa) metoprolol succinate 50 mg 50 mg PO DAILY 05/20/23 07/25/23 tablet,extended release 24 hr nifedipine 90 mg tablet,extended 90 mg PO DAILY 05/20/23 07/25/23 release 24 hr potassium chloride 20 mEq 20 meq PO DAILY 05/20/23 07/25/23 tablet,extended release insulin lispro 100 unit/mL See Rx Instructions .Route .COMPLEX 05/31/23 07/25/23 subcutaneous solution (Humalog U-100 Insulin) cyclosporine 0.05 % eye drops in a 1 drp EACH EYE BID 07/25/23 07/25/23 dropperette (Restasis) febuxostat 40 mg tablet 40 mg PO HS 07/25/23 07/26/23 gemfibrozil 600 mg tablet 600 mg PO BID 07/25/23 07/25/23 insulin aspart U-100 100 unit/mL See Rx Instructions .Route .COMPLEX 07/25/23 07/25/23 subcutaneous solution (Novolog U-100 Insulin aspart) linaclotide 72 mcg
--- NOTE | 2023-07-25 16:05 | ECG_ITS ---
Measurements Intervals [place] Rate: 70 P: 69 AR: 207 QRS: -55 QRSD: 130 T: 103 QT: 427 QTc: 462 Interpretive Statements SINUS RHYTHM MARKED LEFT AXIS DEVIATION [QRS AXIS < -30] LEFT VENTRICULAR HYPERTROPHY AND ST-T CHANGE [VOLTAGE CRITERIA PLUS ST/T ABNORMALITY] Poor R-wave progression, possible old anterior TN COMPARED TO ECG 05/20/2023 13:53:15 LEFT VENTRICULAR HYPERTROPHY NOW PRESENT NO SIGNIFICANT CHANGE Electronically Signed On 07-25-2023 20:22:57 [employer] COMMUNITY MANAGER by Cyndi Nielson M.D.
[2023-07-25 16:27] LABS: Hematocrit 36.4 % (42.0-52.0); Hemoglobin 12.6 g/dL (14.0-18.0); Mean Corpuscular HGB Conc 34.6 g/dl (32-36); Mean Corpuscular Hemoglobin 29.4 pg (26-34); Mean Platelet Volume 9.1 fl (7.4-10.4); Platelet Count Result 222 k/mm3 (150-375); Red Blood Count 4.28 M/mm3 (4.6-6.20); Red Cell Distribution Width 13.2 % (11.5-14.5); White Blood Count 4.3 K/mm3 (4.5-10.0)
[2023-07-25 16:36] LABS: Alanine Aminotransferase 61 U/L (6-50); Alkaline Phosphatase 134 U/L (38-126); Anion Gap 15 mmol/L (8-16); Aspartate Amino Transferase 53 U/L (17-59); Bilirubin,Total 0.7 mg/dL (0.2-1.3); Blood Urea Nitrogen 51 mg/dL (9-20); Calcium 8.9 mg/dL (8.4-10.2); Carbon Dioxide 25 mmol/L (22-30); Chloride 96 mmol/L (98-107); Estimated CRCL calculation 14 ml/min; Estimated Glomerular Filt Rate 8; Glucose 189 mg/dL (65-110); Sodium 136 mmol/L (137-145)
[2023-07-25 16:53] LABS: NT Pro B Type Natriuretic Pept 14400 pg/mL (19.9-100); Troponin I 0.679 ng/mL (0.000-0.034)
[2023-07-25] MEDS: LEVALBUTEROL NEB 1.25 MG/3 ML 2.5 MG INHALATION (16:58)
[2023-07-25] MEDS: IPRATROPIUM BR 0.02% INH SOLN 0.5 MG/2.5 ML VIAL 1.5 MG INHALATION (16:59)
[2023-07-25 17:01] LABS: Band Neutrophils Percent 1 % (0-6); Eosinophils Absolute Manual 0.43 K/mm3 (0.02-0.5); Eosinophils Percent Manual 10 % (0-4); Lymphocytes Absolute Manual 2.02 K/mm3 (1.1-4.5); Lymphocytes Percent Manual 47 % (18-44); Monocytes Absolute Manual 0.51 K/mm3 (0.1-0.90); Monocytes Percent Manual 12 % (3-9); Neutrophils Absolute Manual 1.33 K/mm3 (1.3-6.7); Neutrophils Percent Manual 30 % (46-73); Total Cells Counted 100
[2023-07-25 17:02] LABS: Platelet Estimate Adequate (Adequate); Schistocytes None Seen (NORMAL)
--- NOTE | 2023-07-25 17:48 | PM.IMHP ---
H&P: HPI History of Present Illness Date/Time: 07/25/23 18:30 Chief Complaint: URI symptoms. Narrative: This is a very pleasant 52-year-old male with type 1 diabetes mellitus with history of diabetic ketoacidosis, coronary artery disease, hypertension, obstructive sleep apnea, paroxysmal atrial fibrillation, and end-stage renal disease on peritoneal dialysis who presented to the emergency department from home for evaluation of URI symptoms. The patient provides the following history. He has not been feeling well for couple of weeks with URI symptoms to include sinus congestion, chest congestion, cough, rhinorrhea, myalgias, wheezing, and mild shortness of breath with exertion. He had some loose stools but that is improving. He was prescribed a Z-Emanuel within the past 1 week with no improvement in his symptoms. After speaking with his primary care provider he was called in a prescription for amoxicillin though he decided to come in to the ED for evaluation instead as he continues to feel increasingly short of breath. He did have some loose stools but that has improved. He denies syncope, near syncope, fever, headache, exertional chest pain, orthopnea, and paroxysmal nocturnal dyspnea. He has chronic lower extremity edema which is unchanged and he denies calf pain. In the ED: He was afebrile on arrival. Blood pressures have been stable. Labs were significant for a WBC count of 4.3, hemoglobin 12.6, sodium 136, chloride 96, BUN 51, creatinine 7.40, glucose 186, troponin 0.679, proBNP 62937. EKG showed sinus rhythm with left axis deviation, left ventricular hypertrophy and ST T-wave changes, similar to a prior EKG tracing. He tested positive for RSV. Chest x-ray showed no acute cardiopulmonary disease. Interventions in the ED include aspirin 324 mg p.o. and a DuoNeb which seemed to help a little bit. He is being admitted in this setting for close monitoring and Cardiology consultation in the elevated troponin. Review of Systems Review of Systems: Twelve systems were reviewed and are negative except for as per HPI. [facility] Past Medical History Medical History Anemia in chronic kidney disease Anxiety Arthritis Chronic anticoagulation Congestive heart failure Echocardiogram May 2017 EF of 50% with hypokinetic apical, inferior and basal inferior lateral segment, mild enlargement of left atrium. Coronary artery disease With history of several stents. Followed by [facility]. Deep venous thrombosis Chronic right popliteal DVT. Diabetic peripheral neuropathy Diabetic retinopathy Elevated LFTs End-stage renal disease on peritoneal dialysis Essential hypertension Gastroesophageal reflux disease Gout Hyperlipidemia Obstructive sleep apnea With inconsistent CPAP use. Paroxysmal atrial fibrillation Renal osteodystrophy Secondary hyperparathyroidism of renal origin Seizure X1 with etiology unknown Type 1 diabetes mellitus Onset around age 13. Surgical History Surgical History History of anterior cruciate ligament surgery (2000) Left knee History of appendectomy (2006) History of arthroscopy of left knee History of bilateral carpal tunnel release Right 05/03/2018. Left 06/02/2018. History of cardiac catheterization 01/21/2021 catheterization at [facility], Dr. Hoover done: Little change from prior catheterization. Patent stents in the RCA and PDA. Previously jailed posterolateral is occluded and development of a 50% stenosis of a branch of om 1. Normal LV function. :August 2019 demonstrated patent stents with 40% stenosis of 1 vessel with no stents or angioplasty performed per patient report. :November 2018 at [facility] - stent x3. :March 2017 demonstrating mild diffuse coronary disease 80% lesion small sub branch of obtuse marginal 1 and 90% stenosis distal RCA into the origin of the PDA wi
[2023-07-25] MEDS: ASPIRIN 81 MG CHEWABLE TABLET 324 MG PO (18:07)
[2023-07-25] MEDS: ACETAMINOPHEN 325 MG TABLET 650 MG PO (18:11)
--- NOTE | 2023-07-25 19:05 | ADMGEN ---
This patient, Juvenal Daigle Jr., was admitted to IMU Room 231-01. Patient/family oriented to hospital policies and general routines including ID bracelet, bed and alarms, visiting hours, pain management, procedures, bathroom and other care routines, personal items, smoking policy, room service/diet, and visiting hours. Information on how to activate the Rapid Response Team has been discussed. Patient/Family are encouraged to report perceived risks to care and to ask questions if they do not understand what they are told or what they should do.
[2023-07-25 19:23] LABS: Glucose Point of Care 176 mg/dl (65-105)
[2023-07-25 20:31] LABS: Troponin I 0.666 ng/mL (0.000-0.034)
[2023-07-25 23:41] LABS: Glucose Point of Care 169 mg/dl (65-105)
[2023-07-26] VITALS (18 sets, daily range): BP systolic 137–165; BP diastolic 57–71; PULSE 69–92; RESP 18–24; TEMP 36.1–36.8; O2SAT 96–100
--- NOTE | 2023-07-26 | ECHO_ITS ---
Patient Info Name: Juvenal Daigle Age: 52 years : 1970 Gender: Male Ht: 70 in Wt: 262 lbs BSA: 2.47 m2 HR: 76 bpm BP: 155 / 71 mmHg Heart Rhythm: Sinus Rhythm Technical Quality: Fair Exam Date: 07/26/2023 2:50 PM Exam Location: Echo Lab Exam Room: 231 Patient Status: Outpatient Admit Date: 07/25/2023 Staff Ordering Physician: Darcie Strickland MD Foreign Car Mechanic: Ada Crawford RDCS Attending Provider: Gonzalez Alford MD Exam Type: CA echo dop color flow w con Study Info Indications - elevated troponins chf cad esrd on dialysis Complete two-dimensional, color flow and Doppler transthoracic echocardiogram is performed with contrast to opacify the left ventricle and to improve the deliniation of the left ventricle endocardial borders. Contrast/Agitated Saline Contrast/Ag. Saline: Definity Amount: 3.00 ml Administered By: Ada Crawford [facility] Existing IV Access: Yes IV Access Condition: patent with no signs of infiltration Summary 1. Normal left ventricular size with mild concentric hypertrophy. Moderate global hypokinesis with ejection fraction of 40 -45%, measured at 43%. Grade 2 diastolic dysfunction is present. 2. Left atrial chamber dimension is mildly enlarged. 3. There is mild to moderate aortic valve stenosis with a peak velocity of 271.08 cm/s, mean gradient of 17 mmHg, and aortic valve area of 1.22 cm2. 4. There is mild aortic valve regurgitation. 5. There is mild mitral valve regurgitation. 6. There is mild tricuspid valve regurgitation. 7. No pulmonary hypertension, estimated pulmonary arterial systolic pressure is 34 mmHg. 8. Technically difficult study; definity echo contrast used. 9. Normal sinus rhythm. Left Ventricle Left ventricular chamber dimension is moderately enlarged. Left ventricular systolic function is moderately reduced, estimated at 40-45%. There is mildly increased left ventricular wall thickness. Left ventricular septal wall motion is normal. The left ventricular diastolic function is grade II diastolic dysfunction. Right Ventricle Right ventricular chamber dimension is normal. Right ventricular systolic function is normal. Left Atria Left atrial chamber dimension is mildly enlarged. Right Atria Right atrial chamber dimension is normal. Aortic Valve The aortic valve is trileaflet. There is no aortic valve sclerosis. There is mild to moderate aortic valve stenosis with a peak velocity of 271.08 cm/s, mean gradient of 17 mmHg, and aortic valve area of 1.22 cm2. There is mild aortic valve regurgitation. There is moderate aortic valve calcification. Pulmonic Valve The pulmonic valve is normal. There is no pulmonic valve stenosis. There is no pulmonic regurgitation. Mitral Valve The mitral valve has normal leaflets. There is no mitral valve stenosis. There is mild mitral valve regurgitation. Tricuspid Valve The tricuspid valve leaflets are normal. There is no significant tricuspid valve stenosis. There is mild tricuspid valve regurgitation. No pulmonary hypertension, estimated pulmonary arterial systolic pressure is 34 mmHg. Pericardium/Pleural The pericardium appears normal. There is no pericardial effusion. Inferior Vena Cava Not well visualized inferior vena cava with >50% collapse upon inspiration consistent with Empty right atrial pressure, 10 mmHg. Aorta The aortic root size at the sinus of Valsalva is normal. The prox ascending aorta size is normal. Left Ventricular Outflow Tract
[2023-07-26] MEDS: INSULIN GLARGINE (*BKC) 100 UNITS/ML 80 UNITS SUB-Q ×2 (00:14→21:47)
[2023-07-26] MEDS: RANOLAZINE 500 MG TAB.ER.12H PO ×3 (00:15→21:40)
[2023-07-26] MEDS: ACETAMINOPHEN 325 MG TABLET 650 MG PO ×3 (00:19→21:39)
[2023-07-26] MEDS: guaiFENesin 12 HR 600 MG TABCR (00:30)
[2023-07-26 04:15] LABS: Glucose Point of Care 251 mg/dl (65-105)
[2023-07-26 04:36] LABS: Hematocrit 35.6 % (42.0-52.0); Mean Corpuscular HGB Conc 33.7 g/dl (32-36); Mean Corpuscular Hemoglobin 28.7 pg (26-34); Mean Corpuscular Volume 85.2 fl (80-100); Mean Platelet Volume 9.3 fl (7.4-10.4); Platelet Count Result 188 k/mm3 (150-375); Red Blood Count 4.18 M/mm3 (4.6-6.20); Red Cell Distribution Width 13.1 % (11.5-14.5); White Blood Count 3.6 K/mm3 (4.5-10.0)
[2023-07-26 04:44] LABS: Anion Gap 11 mmol/L (8-16); Blood Urea Nitrogen 56 mg/dL (9-20); Calcium 8.5 mg/dL (8.4-10.2); Carbon Dioxide 27 mmol/L (22-30); Chloride 94 mmol/L (98-107); Estimated CRCL calculation 13 ml/min; Estimated Glomerular Filt Rate 7; Glucose 267 mg/dL (65-110); Potassium 4.1 mmol/L (3.4-5.0); Sodium 132 mmol/L (137-145)
[2023-07-26 07:49] LABS: Glucose Point of Care 205 mg/dl (65-105)
[2023-07-26] MEDS: INSULIN ASPART (*BKC) 100 UNITS/ML SUB-Q ×2 (07:57→21:46)
[2023-07-26] MEDS: COLCHICINE 0.6 MG TABLET PO (08:01)
[2023-07-26] MEDS: LOSARTAN POTASSIUM 12.5 MG TABLET PO (08:02)
[2023-07-26] MEDS: METOPROLOL SUCCINATE EXT REL 50 MG TABCR PO (08:02)
[2023-07-26] MEDS: ISOSORBIDE MONONITRATE 30 MG TAB.ER.24H PO (08:03)
[2023-07-26] MEDS: NIFEdipine 30 MG TAB.ER.24 90 MG PO (08:03)
[2023-07-26] MEDS: CLOPIDOGREL BISULFATE 75 MG TABLET PO (08:03)
[2023-07-26] MEDS: POTASSIUM CHLORIDE 20 MEQ ER TABLET PO (08:03)
[2023-07-26] MEDS: OMEGA 3 POLYUNSAT FATTY ACIDS 1 GM CAP 2 GM PO ×2 (08:03→17:15)
[2023-07-26] MEDS: FUROSEMIDE 40 MG TABLET 120 MG PO ×2 (08:04→17:15)
[2023-07-26] MEDS: FAMOTIDINE 20 MG TABLET 40 MG PO (08:04)
[2023-07-26] MEDS: EZETIMIBE 10 MG TABLET PO (08:04)
[2023-07-26] MEDS: APIXABAN 2.5 MG TABLET PO ×2 (08:04→21:38)
[2023-07-26] MEDS: calcitrioL 0.25 MCG CAPSULE PO (08:05)
[2023-07-26] MEDS: LORATADINE 10 MG TABLET PO (08:05)
[2023-07-26] MEDS: cycloSPORINE 0.4 ML OPHTH SOLUTION 1 DROP EACH EYE ×2 (08:06→21:43)
[2023-07-26] MEDS: INSULIN ASPART (*BKC) 100 UNITS/ML 6 UNITS SUB-Q ×2 (08:11→12:01)
[2023-07-26] MEDS: gemfibroziL 600 MG TABLET PO ×2 (08:14→17:15)
--- NOTE | 2023-07-26 08:54 | PM.CNCAR ---
Assessment and Plan Assessment and plan (1) Elevated troponin: Code(s): R79.89 - Other specified abnormal findings of blood chemistry Status: Acute Assessment and Plan: Asked to see patient for elevated troponin. Patient's troponins are chronically elevated due to his chronic heart disease and end-stage renal disease. No evidence of acute coronary syndrome this admission. Also has elevated proBNP but no volume overload on exam or by chest x-ray. --Continue usual furosemide and peritoneal dialysis. --continue usual treatment for patient's CAD. (2) Coronary artery disease: Qualifiers: Coronary Disease-Associated Artery/Lesion type: [place] artery [place] vs. transplanted heart: [place] heart Associated angina: with stable angina Qualified Code(s): I25.118 - Atherosclerotic heart disease of [place] coronary artery with other forms of angina pectoris Code(s): I25.10 - Atherosclerotic heart disease of [place] coronary artery without angina pectoris Status: Chronic Assessment and Plan: History of CAD and stents, with complex PCI in June 11 as described above. --continue clopidogrel, ezetimibe, atorvastatin, nitrates, ranolazine etc. (3) Respiratory syncytial virus: Code(s): B33.8 - Other specified viral diseases Status: Acute Assessment and Plan: Admitted with URI secondary to respiratory syncytial virus --continue supportive care --out of bed, prevent complications. (4) Paroxysmal atrial fibrillation: Code(s): I48.0 - Paroxysmal atrial fibrillation Status: Acute Assessment and Plan: Has PAF, currently in sinus rhythm, --continue Eliquis and metoprolol (5) Hypertension: Code(s): I10 - Essential (primary) hypertension Status: Acute Assessment and Plan: Running mildly elevated, but acceptable at this point. --continue losartan, metoprolol, nifedipine (6) End-stage renal disease on peritoneal dialysis: Code(s): N18.6 - End stage renal disease; Z99.2 - Dependence on renal dialysis Status: Acute Assessment and Plan: Treatment per hospitalist Plan No other cardiac recommendations. Cardiology will sign off but please call if we can be of further assistance. History of Present Illness History of Present Illness Consult date/time: 07/26/23 08:54 Reason For Visit: Elevated Trop/RSV Narrative: Juvenal Daigle is a medically complex 52 y.o. male w/ a h/o CAD and complicated intervention at [place] in 2021. He also has end-stage renal disease in on peritoneal dialysis. History of CHF, diabetes, AFib on Eliquis, BEN. We have been asked to see him in consultation for advice and opinion regarding his elevated troponins. The patient has not been feeling well for the last 2 weeks with upper respiratory infective symptoms including sinus congestion, chest congestion, frequent dry cough, myalgias, wheezing, low grade temp and mild shortness of breath. Was prescribed a Z-Emanuel 1 week ago with no improvement and came to the emergency room for evaluation. He tested positive for RSV. He has been given DuoNeb treatments and supportive care. He has not had any chest pain or tightness, but has some chronic mild lower extremity edema. Troponin was was 0.666, proBNP was 91313. Chest x-ray: No acute cardiopulmonary disease (personally reviewed, agree. ) EKG 07/25/2023 at 16 18: NSR rate 70, nonspecific ST changes, poor R-wave progression, no significant change compared to prior tracing 11/2021 echo: EF greater than 70%, diastolic dysfunction, LVH, mild aortic stenosis Past cardiac history: The patient usual vocational education professional is Dr. Ortega at [facility]. ?We saw this patient here at [facility] with unstable ischemic chest pain in May of 2022.? He was found to have left coronary dominant circulation with heavily calcified left coronary artery there was high-grade stenosis at the
[2023-07-26] MEDS: guaiFENesin 600 MG/DEXTROMETHORPHAN 30 MG SR TAB 12 HR 1 TAB PO ×2 (11:11→14:41)
[2023-07-26] MEDS: LINACLOTIDE 72 MCG CAPSULE PO (11:11)
--- NOTE | 2023-07-26 11:19 | PM.CNNEP ---
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 Benign essential hypertensive renal disease with renal failure Anemia chronic kidney disease Secondary hyperparathyroidism History of obstructive sleep apnea on CPAP Obesity Elevated troponin chronic in nature History of coronary artery disease status post stents Plan: -peritoneal dialysis orders, in case he stays in hospital -follow-up for ESRD and related needs -maintain CPAP at home RSV treatment as per primary care team -follow History of Present Illness Reason for Consult Consult date: 07/26/23 Reason for consult: end stage renal disease Chief Complaint Chief complaint: Elevated Trop/RSV History of Present Illness Narrative: 52-year-old man who has a history of ESRD secondary to type 1 diabetes mellitus, hypertensive renal disease, history of sleep apnea on CPAP, CHF, coronary artery disease, anemia of chronic kidney disease and secondary hyperparathyroidism. Presents with upper respiratory symptomatology with cough and congestion and some shortness of breath but no fevers or chills. He finished a Z-Emanuel with no improvement and now presents to the emergency room. We are asked to see for his ongoing renal failure needs as he is on peritoneal dialysis nightly. Chest x-ray does not show any cardiopulmonary disease. WBC count is 3.6 with no left shift. He is noted to have an RSV infection. He does not have a fever. He did have elevated troponin for which Cardiology is following. Troponin is thought to be clinically elevated due to his ESRD and seizure status. No further workup is planned He did not receive his dialysis last night Review of Systems Review of Systems: Other systemic review is negative. He is mildly short of breath, and face some lower extremity swelling. [facility] Past Medical History Medical History Anemia in chronic kidney disease Anxiety Arthritis Chronic anticoagulation Congestive heart failure Echocardiogram May 2017 EF of 50% with hypokinetic apical, inferior and basal inferior lateral segment, mild enlargement of left atrium. Coronary artery disease With history of several stents. 05/2022 Complex procedure at [place] w/ stenting of a heavly calcified CX on OM using shockwave tx, Impella. Followed by Dr. Ortega at [facility]. Deep venous thrombosis Chronic right popliteal DVT. Diabetic peripheral neuropathy Diabetic retinopathy Elevated LFTs End-stage renal disease on peritoneal dialysis Essential hypertension Gastroesophageal reflux disease Gout Hyperlipidemia Obstructive sleep apnea With inconsistent CPAP use. Paroxysmal atrial fibrillation Renal osteodystrophy Secondary hyperparathyroidism of renal origin Seizure X1 with etiology unknown Type 1 diabetes mellitus Onset around age 13. Surgical History Surgical History History of anterior cruciate ligament surgery (2000) Left knee History of appendectomy (2006) History of arthroscopy of left knee History of bilateral carpal tunnel release Right 05/03/2018. Left 06/02/2018. History of cardiac catheterization 01/21/2021 catheterization at [facility], Dr. Hoover done: Little change from prior catheterization. Patent stents in the RCA and PDA. Previously jailed posterolateral is occluded and development of a 50% stenosis of a branch of om 1. Normal LV function. :August 2019 demonstrated patent stents with 40% stenosis of 1 vessel with no stents or angioplasty performed per patient report. :November 2018 at [facility] - stent x3. :March 2017 d
[2023-07-26 12:01] LABS: Glucose Point of Care 140 mg/dl (65-105)
--- NOTE | 2023-07-26 15:06 | PCCCNOTE ---
On 07/26/23, the student, Suzy Chiu, provided care and completed [facility] documentation on this patient. I have reviewed the student's documentation and agree with the findings.
--- NOTE | 2023-07-26 15:23 | PM.IMPN ---
Progress Note: A&P Assessment and Plan (1) Type 1 diabetes mellitus: Code(s): E10.9 - Type 1 diabetes mellitus without complications Status: Acute (2) Elevated troponin: Code(s): R79.89 - Other specified abnormal findings of blood chemistry Status: Acute (3) Respiratory syncytial virus: Code(s): B33.8 - Other specified viral diseases Status: Acute Plan ?52-year-old male with type 1 diabetes mellitus with history of diabetic ketoacidosis, coronary artery disease, hypertension, obstructive sleep apnea, paroxysmal atrial fibrillation, and end-stage renal disease on peritoneal dialysis who presented to the emergency department from home for evaluation of URI symptoms.?He tested positive for RSV. Chest x-ray showed no acute cardiopulmonary disease. 1. Acute RSV infection: Not requiring any oxygen Continue with Mucinex for cough Tylenol p.r.n. for pain/fever Continue With albuterol 2. ESRD on peritoneal dialysis: Appreciate Renal health Plan for dialysis later tonight at his regular scheduled interval 3. Chest pain+ elevated troponin: Elevated troponin seems to be chronic Appreciate cardiology help History of CAD with stents continue clopidogrel, ezetimibe, atorvastatin, nitrates, ranolazine Await echocardiogram 4. Paroxysmal AFib: Continue with Eliquis, metoprolol 5. Code status: Full 6. DVT prophylaxis: On Eliquis 7. Disposition: Pending improvement, anticipate discharge in next 24 hours Time Spent With Patient Time with patient: 15 - 25 minutes Subjective Date/time seen: 07/26/23 15:23 Interval history: Complains of cough Review of Systems Review of Systems: Twelve systems were reviewed and are negative except for as per HPI. Exam Narrative: General:? No acute distress HEENT:??PERRL, EOMI. Sclera anicteric. Neck:??Supple. Respiratory:?Respirations are nonlabored his began full sentences. Coarse lung sounds heard throughout. No significant wheezing. Cardiovascular:??Regular rate and rhythm with S1-S2. Gastrointestinal:??Abdomen is soft, nontender, and nondistended with positive bowel sounds. PD catheter in left lower quadrant. Skin:??Warm and dry.?Chronic hyperpigmentation of the lower legs bilaterally. Extremities:??No cyanosis or clubbing. Chronic pitting and nonpitting edema of the lower legs. Peripheral pulses intact, decreased in the lower extremities. Neurological:??Alert. Cranial nerves 2-12 are grossly intact. No gross focal deficits to casual conversation. Psychiatric:??Pleasant and cooperative with normal mood and affect.? Judgment and insight intact. Objective Data Vital Signs Vital Signs: Vital Signs - 24 hr 07/25/23 15:57 07/25/23 16:55 07/25/23 17:10 Temperature Pulse Rate 72 72 72 Respiratory Rate 18 18 14 Blood Pressure 143/72 H Pulse Oximetry 99 97 Oxygen Delivery 07/25/23 17:36 07/25/23 18:57 07/25/23 19:05 Temperature 97.7 F Pulse Rate 68 69 83 Respiratory Rate 18 18 18 Blood Pressure 146/72 H 93/57 L Pulse Oximetry 100 100 Oxygen Delivery 07/25/23 23:38 07/26/23 00:00 07/26/23 00:00 Temperature 97.7 F Pulse Rate 70 70 70 Respiratory Rate 18 18 Blood Pressure 140/64 Pulse Oximetry 99 99 Oxygen Delivery Room Air 07/26/23 04:00 07/26/23 04:00 07/26/23 04:00 Temperature 97.4 F L Pulse Rate 69 70 70 Respiratory Rate 18 18 Blood Pressure 151/61 H Pulse Oximetry 98 98 Oxygen Delivery Room Air 07/26/23 06:00 07/26/23 07:38 07/26/23 08:02 Temperature 97.0 F L Pulse Rate 72 72 73 Respiratory Rate 22 H Blood Pressure 155/71 H Pulse Oximetry 100 Oxygen Delivery 07/26/23 11:49 Temperature 97.8 F Pulse Rate 74 Respiratory Rate 24 H Blood Pressure 137/65 Pulse Oximetry 97 Oxygen Delivery Intake/Output Intake/Output: Intake & Output 07/23/23 07/24/23 07/25/23 07/26/23 23:59 23:59 23:59 23:59 Intake Total 480 1270 Output Total 350 [place]
[2023-07-26] MEDS: PERFLUTREN LIPID MICROSPHERES 1.5 ML VIAL DILUTED TO 10 ML TOTAL VOLUME IV PUSH (15:45)
--- NOTE | 2023-07-26 16:04 | IVDEFINITY ---
Prior to administration of IV Definity the patient was educated on the risks and benefits of the imaging enhancing agent including potential adverse side effects. The patient verbalized understanding. Allergies were verified. No exclusion criteria were identified and at least one of the following inclusion criteria were met: 1) physician request, 2) patient technically difficult to image (per the [place] [employer] Echocardi[employer] guidelines of two or more segments not discernable within the apical view), or 3) questionable left ventricular function. ?
[2023-07-26 18:35] LABS: Glucose Point of Care 121 mg/dl (65-105)
[2023-07-26 20:38] LABS: Glucose Point of Care 285 mg/dl (65-105)
--- NOTE | 2023-07-26 21:28 | ECG_ITS ---
Measurements Intervals [place] Rate: 75 P: 68 VT: 206 QRS: -45 QRSD: 138 T: 95 QT: 458 QTc: 514 Interpretive Statements SINUS RHYTHM WITH OCCASIONAL VENTRICULAR PREMATURE COMPLEXES INTRAVENTRICULAR CONDUCTION DELAY [130+ ms QRS DURATION] POOR R-WAVE PROGRESSION COMPARED TO ECG 07/25/2023 16:18:08 NO SIGNIFICANT CHANGES Electronically Signed On 07-27-2023 9:18:35 INSURANCE RISK MANAGER by Mesha Castro M.D.
[2023-07-26] MEDS: ATORVASTATIN 40 MG TABLET 80 MG PO (21:38)
[2023-07-26] MEDS: guaiFENesin 600 MG/DEXTROMETHORPHAN 30 MG SR TAB 12 HR 2 TAB PO (21:39)
[2023-07-26] MEDS: NITROGLYCERIN SL 0.4 MG TABLET SUBLINGUAL (21:41)
[2023-07-26] MEDS: BENZOCAINE/MENTHOL (*BKC) 18 EA LOZENGE 1 LOZENGE PO (21:42)
[2023-07-27] VITALS (12 sets, daily range): BP systolic 103–167; BP diastolic 55–88; PULSE 63–86; RESP 16–22; TEMP 36.4–37.3; O2SAT 90–96
[2023-07-27] MEDS: ACETAMINOPHEN 325 MG TABLET 650 MG PO (02:27)
[2023-07-27] MEDS: BENZOCAINE/MENTHOL (*BKC) 18 EA LOZENGE 1 LOZENGE PO ×4 (02:30→06:36)
[2023-07-27 04:59] LABS: Basophils Percent Auto 0.3 % (0.2-1.2); Eosinophils Absolute Auto 0.1 K/mm3 (0-0.3); Eosinophils Percent Auto 1.6 % (0-4.4); Hemoglobin 11.3 g/dL (14.0-18.0); Immature Granulocyte Absolute 0.01 K/mm3 (0.00-0.031); Immature Granulocyte Percent A 0.3 % (0-0.5); Lymphocytes Percent Auto 32.3 % (18.3-44.2); Mean Corpuscular HGB Conc 34.2 g/dl (32-36); Mean Corpuscular Hemoglobin 28.9 pg (26-34); Mean Corpuscular Volume 84.4 fl (80-100); Mean Platelet Volume 9.6 fl (7.4-10.4); Monocytes Absolute Auto 0.7 K/mm3 (0.1-0.6); Monocytes Percent Auto 22.6 % (2.6-8.5); Neutrophils Absolute Auto 1.3 K/mm3 (1.3-6.7); Neutrophils Percent Auto 42.9 % (45.5-73.1); Platelet Count Result 154 k/mm3 (150-375); Red Blood Count 3.91 M/mm3 (4.6-6.20); Red Cell Distribution Width 13.1 % (11.5-14.5); White Blood Count 3.1 K/mm3 (4.5-10.0)
[2023-07-27 05:08] LABS: Anion Gap 10 mmol/L (8-16); Blood Urea Nitrogen 57 mg/dL (9-20); Calcium 8.3 mg/dL (8.4-10.2); Carbon Dioxide 26 mmol/L (22-30); Chloride 92 mmol/L (98-107); Estimated CRCL calculation 13 ml/min; Estimated Glomerular Filt Rate 7; Glucose 393 mg/dL (65-110); Sodium 128 mmol/L (137-145)
[2023-07-27 05:36] LABS: Anisocytosis 1+ (NORMAL); Burr Cells 1+ (NORMAL); Platelet Estimate Adequate (Adequate); Schistocytes Rare (NORMAL)
[2023-07-27 07:55] LABS: Glucose Point of Care 333 mg/dl (65-105)
[2023-07-27] MEDS: guaiFENesin 600 MG/DEXTROMETHORPHAN 30 MG SR TAB 12 HR 2 TAB PO (08:47)
[2023-07-27] MEDS: NIFEdipine 30 MG TAB.ER.24 90 MG PO (08:48)
[2023-07-27] MEDS: METOPROLOL SUCCINATE EXT REL 50 MG TABCR PO (08:48)
[2023-07-27] MEDS: CLOPIDOGREL BISULFATE 75 MG TABLET PO (08:48)
[2023-07-27] MEDS: POTASSIUM CHLORIDE 20 MEQ ER TABLET PO (08:48)
[2023-07-27] MEDS: ISOSORBIDE MONONITRATE 30 MG TAB.ER.24H PO (08:48)
[2023-07-27] MEDS: EZETIMIBE 10 MG TABLET PO (08:48)
[2023-07-27] MEDS: FAMOTIDINE 20 MG TABLET 40 MG PO (08:48)
[2023-07-27] MEDS: OMEGA 3 POLYUNSAT FATTY ACIDS 1 GM CAP 2 GM PO (08:48)
[2023-07-27] MEDS: FUROSEMIDE 40 MG TABLET 120 MG PO (08:48)
[2023-07-27] MEDS: LINACLOTIDE 72 MCG CAPSULE PO (08:49)
[2023-07-27] MEDS: APIXABAN 2.5 MG TABLET PO (08:49)
[2023-07-27] MEDS: INSULIN ASPART (*BKC) 100 UNITS/ML SUB-Q ×2 (08:49→12:02)
[2023-07-27] MEDS: LORATADINE 10 MG TABLET PO (08:49)
[2023-07-27] MEDS: MELOXICAM 7.5 MG TABLET PO (08:49)
[2023-07-27] MEDS: RANOLAZINE 500 MG TAB.ER.12H PO (08:49)
[2023-07-27] MEDS: calcitrioL 0.25 MCG CAPSULE PO (08:49)
[2023-07-27] MEDS: gemfibroziL 600 MG TABLET PO (08:49)
[2023-07-27] MEDS: LOSARTAN POTASSIUM 12.5 MG TABLET PO (08:49)
[2023-07-27] MEDS: INSULIN ASPART (*BKC) 100 UNITS/ML 6 UNITS SUB-Q (08:50)
[2023-07-27] MEDS: cycloSPORINE 0.4 ML OPHTH SOLUTION 1 DROP EACH EYE (08:50)
[2023-07-27] MEDS: ALBUTEROL SULFATE (*SP) AEROSOL 1 PUFF 2 PUFF INHALATION (10:11)
[2023-07-27] MEDS: INSULIN ASPART (*BKC) 100 UNITS/ML 10 UNITS SUB-Q (12:02)
[2023-07-27 12:25] LABS: Glucose Point of Care 268 mg/dl (65-105)
--- NOTE | 2023-07-27 12:55 | PM.DS ---
DS: Admitting Diagnosis Discharge Date 07/27/23 Admitting Diagnosis Acute RSV infection Chronically elevated troponin ESRD on peritoneal dialysis DS: Discharge Diagnosis Discharge Diagnosis (1) Type 1 diabetes mellitus: Code(s): E10.9 - Type 1 diabetes mellitus without complications Status: Acute (2) Elevated troponin: Code(s): R79.89 - Other specified abnormal findings of blood chemistry Status: Acute (3) Respiratory syncytial virus: Code(s): B33.8 - Other specified viral diseases Status: Acute DS: Summary Hospital Course Reason for hospitalization: Acute RSV infection Hospital Course: ?52-year-old male with type 1 diabetes mellitus with history of diabetic ketoacidosis, coronary artery disease, hypertension, obstructive sleep apnea, paroxysmal atrial fibrillation, and end-stage renal disease on peritoneal dialysis who presented to the emergency department from home for evaluation of URI symptoms.?He tested positive for RSV. Chest x-ray showed no acute cardiopulmonary disease. Was monitored for 24 hours in the hospital, did not require any oxygen supplementation. Was treated supportively her with cough suppressant. Cardiology was consulted for chronically elevated troponin, no recommendations were made. Nephrology was consulted, underwent his scheduled peritoneal dialysis at night. Discharged home in stable condition Status at Discharge Functional status at discharge: independent ambulation Overall status at discharge: patient is progressing back to baseline Time Spent with Patient Time attestation: Total time spent providing and/or coordinating discharge services: Time spent: Greater than 30 minutes Exam Narrative: General:? No acute distress HEENT:??PERRL, EOMI. Sclera anicteric. Neck:??Supple. Respiratory:?Respirations are nonlabored his began full sentences. Coarse lung sounds heard throughout. No significant wheezing. Cardiovascular:??Regular rate and rhythm with S1-S2. Gastrointestinal:??Abdomen is soft, nontender, and nondistended with positive bowel sounds. PD catheter in left lower quadrant. Skin:??Warm and dry.?Chronic hyperpigmentation of the lower legs bilaterally. Extremities:??No cyanosis or clubbing. Chronic pitting and nonpitting edema of the lower legs. Peripheral pulses intact, decreased in the lower extremities. Neurological:??Alert. Cranial nerves 2-12 are grossly intact. No gross focal deficits to casual conversation. Psychiatric:??Pleasant and cooperative with normal mood and affect.? Judgment and insight intact. DS: Data Data Completed and Pending Labs on day of discharge: Labs from last 24 hours 07/27/23 07/27/23 07/27/23 11:16 07:36 04:38 WBC RBC Hgb Hct MCV MCH MCHC RDW Plt Count MPV Immature Gran % (Auto) Neut % (Auto) Lymph % (Auto) [place] % (Auto) Eos % (Auto) Baso % (Auto) Lymph # (Auto) [place] # (Auto) Eos # (Auto) Baso # (Auto) Abs Immat Gran (auto) Absolute Neuts (auto) Absolute Nucleated RBC Nucleated RBC % Platelet Estimate Anisocytosis Loyd Cells Schistocytes Sodium 128 L Potassium 4.0 Chloride 92 L Carbon Dioxide 26 Anion Gap 10 BUN 57 H Creatinine 7.80 H Estim Creat Clear Calc 13 Estimated GFR 7 L Glucose 393 H POC Capillary Glucose 268 H 333 H Calcium 8.3 L 07/27/23 07/26/23 07/26/23 04:37 20:32 16:33 WBC 3.1 L RBC 3.91 L Hgb 11.3 L Hct 33.0 L MCV 84.4 MCH 28.9 MCHC 34.2 RDW 13.1 Plt Count 154 MPV 9.6 Immature Gran % (Auto) 0.3 Neut % (Auto) 42.9 L Lymph % (Auto) 32.3 [place] % (Auto) 22.6 H Eos % (Auto) 1.6 Baso % (Auto) 0.3 Lymph # (Auto) 1.00 [place] # (Auto) 0.7 H Eos # (Auto) 0.1 Baso # (Auto) 0.0 Abs Immat Gran (auto) 0.01 Absolute Neuts (auto) 1.3 Absolute Nucleated RBC 0.0 Nucleated RBC % 0.0 Platele
== END 2023-07-27 13:50 | disposition home or self-care (01) ==
LOC: ANHED 18:48 → ANHIMU 21:45
PROVIDERS: Emergency Medicine; Physician Assistant; Admitting Provider Family Medicine; Emergency Provider Student in an Organized Health Care Education/Training Program; PCP Family Medicine; Visit Provider Internal Medicine
DX: B33.8 Other specified viral diseases (principal); I13.2 Hypertensive heart and chronic kidney disease with heart failure and with stage 5 chronic kidney disease, or end stage renal disease; I50.9 Heart failure, unspecified; E10.22 Type 1 diabetes mellitus with diabetic chronic kidney disease; Z99.2 Dependence on renal dialysis; N18.6 End stage renal disease; D63.1 Anemia in chronic kidney disease; Z96.41 Presence of insulin pump (external) (internal); R79.89 Other specified abnormal findings of blood chemistry; I25.118 Atherosclerotic heart disease of native coronary artery with other forms of angina pectoris; Z95.5 Presence of coronary angioplasty implant and graft; R94.31 Abnormal electrocardiogram [ECG] [EKG]; Z20.822 Contact with and (suspected) exposure to COVID-19; F43.9 Reaction to severe stress, unspecified; E10.319 Type 1 diabetes mellitus with unspecified diabetic retinopathy without macular edema; E78.5 Hyperlipidemia, unspecified; I08.3 Combined rheumatic disorders of mitral, aortic and tricuspid valves; K21.9 Gastro-esophageal reflux disease without esophagitis; M10.9 Gout, unspecified; G47.33 Obstructive sleep apnea (adult) (pediatric); Z99.89 Dependence on other enabling machines and devices; I48.0 Paroxysmal atrial fibrillation; N25.81 Secondary hyperparathyroidism of renal origin; Z87.891 Personal history of nicotine dependence; Z86.718 Personal history of other venous thrombosis and embolism; Z79.51 Long term (current) use of inhaled steroids; Z79.01 Long term (current) use of anticoagulants; Z79.1 Long term (current) use of non-steroidal anti-inflammatories (NSAID); Z79.4 Long term (current) use of insulin; Z79.899 Other long term (current) drug therapy; Z82.49 Family history of ischemic heart disease and other diseases of the circulatory system
CPT/HCPCS: 36415; 71046; 80048; 80053; 82948; 83735; 83880; 84484; 85025; 85027; 87637; 90945; 93005; 94640; 96374; 99285; A9270; C8929; G0378; G0379; J1815; Q9957

== ENCOUNTER 2023-07-27 15:29 | Emergency (ER) | payer MEDICARE, MEDICAID, SELFPAY ==
[2023-07-27 15:31] VITALS: BP 128/61; PULSE 60; RESP 18; TEMP 36.9; O2SAT 93
[2023-07-27 15:36] LABS: Glucose Point of Care 85 mg/dl (65-105)
== END 2023-07-27 18:00 | disposition left against medical advice (07) ==
PROVIDERS: Emergency Provider Emergency Medicine; PCP Family Medicine
DX: E16.2 Hypoglycemia, unspecified (principal)
CPT/HCPCS: 82948; 99199

== ENCOUNTER 2023-10-09 01:07 | Inpatient (IN) | payer MEDICARE, MEDICAID, SELFPAY ==
[2023-10-09] VITALS (17 sets, daily range): BP systolic 98–135; BP diastolic 53–81; PULSE 56–75; RESP 14–23; TEMP 36.3–36.8; O2SAT 87–98; BMI 33.8
--- NOTE | ~2023-10-09 | XR_ITS ---
Portable chest x-ray Comparison: 07/25/2023 Clinical History: Shortness of breath Findings: Minimal pleural effusions are present bilaterally. There is linear scarring or atelectasis left lung base. Cardiomediastinal silhouette is stable. Bones and soft tissues are unremarkable. Impression: Minimal pleural effusions with linear left basilar scarring or atelectasis. Reviewed, dictated and finalized at location . SAFETY DIRECTOR Impression: Minimal pleural effusions with linear left basilar scarring or atelectasis.
--- NOTE | ~2023-10-09 | US_ITS ---
EXAMINATION: US thyroid DATE: 10/10/2023 22:38 INDICATION: Left thyroid nodule. TECHNIQUE: Multiple ultrasound images of the thyroid were obtained. COMPARISON: Chest CT 01/26/2021 FINDINGS: The right thyroid lobe measures 5.1 x 2.5 x 2.0 cm. The left thyroid lobe measures 4.6 x 2.3 x 2.3 c m. The thyroid demonstrates heterogeneous echogenicity. No discrete nodule. Vascularity is normal. IMPRESSION: 1. Heterogeneous thyroid, likely chronic lymphocytic ([place]) thyroiditis. Reviewed, dictated and finalized at location E. CH SHOVEL OPERATOR
--- NOTE | ~2023-10-09 | XR_ITS ---
EXAMINATION: XR chest 1V portable DATE: 10/10/2023 18:55 INDICATION: New onset shortness of breath. TECHNIQUE: A single frontal view of the chest was obtained. COMPARISON: Chest single view 10/09/2023, CT abdomen and pelvis 06/02/2022 FINDINGS: There are airspace opacities in the lower lung zones, left worse than right. No pleural eff usion or pneumothorax. The heart size is normal. IMPRESSION: 1. Improved airspace opacities in the lower lung zones, left worse than right, consistent with atelec tasis versus pneumonia. Reviewed, dictated and finalized at location E. UITMENT INTERN IMPRESSION: 1. Improved airspace opacities in the lower lung zones, left worse than right, consistent with atelectasis versus pneumonia.
--- NOTE | ~2023-10-09 | XR_ITS ---
EXAMINATION: XR chest 1V portable INDICATION: Hypoxia TECHNIQUE: Portable AP chest at 1444 hours COMPARISON: 0219 hours FINDINGS: There are increasing airspace opacities of the left lung base. Small pleural effusions are present. There is no pneumothorax. The cardiomediastinal silhouette is stable. IMPRESSION: 1. Increasing left basilar airspace opacity, consistent with atelectasis versus pneumonia. 2. Small pleural effusions. Reviewed, dictated and finalized at location B. E COMMERCE MANAGER
[2023-10-09 01:25] LABS: Glucose Point of Care 489 mg/dl (65-105)
[2023-10-09 02:42] LABS: Glucose Point of Care > 500 mg/dl (65-105)
[2023-10-09 02:47] LABS: Basophils Percent Auto 0.6 % (0.2-1.2); Eosinophils Percent Auto 0.8 % (0-4.4); Hematocrit 30.4 % (42.0-52.0); Hemoglobin 10.1 g/dL (14.0-18.0); Immature Granulocyte Absolute 0.01 K/mm3 (0.00-0.031); Immature Granulocyte Percent A 0.2 % (0-0.5); Lymphocytes Percent Auto 29.3 % (18.3-44.2); Mean Corpuscular HGB Conc 33.2 g/dl (32-36); Mean Corpuscular Hemoglobin 29.7 pg (26-34); Mean Corpuscular Volume 89.4 fl (80-100); Monocytes Absolute Auto 0.7 K/mm3 (0.1-0.6); Monocytes Percent Auto 15.1 % (2.6-8.5); Neutrophils Absolute Auto 2.6 K/mm3 (1.3-6.7); Platelet Count Result 249 k/mm3 (150-375); Red Cell Distribution Width 13.1 % (11.5-14.5); White Blood Count 4.8 K/mm3 (4.5-10.0)
[2023-10-09 03:15] LABS: Alanine Aminotransferase 24 U/L (6-50); Albumin Level 3.9 g/dL (3.5-5.1); Alkaline Phosphatase 93 U/L (38-126); Anion Gap 19 mmol/L (8-16); Aspartate Amino Transferase 38 U/L (17-59); Bilirubin,Total 1.2 mg/dL (0.2-1.3); Blood Urea Nitrogen 72 mg/dL (9-20); Calcium 9.6 mg/dL (8.4-10.2); Carbon Dioxide 19 mmol/L (22-30); Chloride 86 mmol/L (98-107); Estimated CRCL calculation 9 ml/min; Estimated Glomerular Filt Rate 5; Glucose 584 mg/dL (65-110); Sodium 124 mmol/L (137-145)
[2023-10-09] MEDS: ONDANSETRON INJ 4 MG/2 ML VIAL IV PUSH (03:26)
[2023-10-09] MEDS: INSULIN HUMAN REGULAR (*BKC) 100 UNITS/ML 7 UNITS IV PUSH (03:26)
[2023-10-09] MEDS: SODIUM CHLORIDE 0.9% IV 1,000 ML 999 ML IV CONT (03:27)
--- NOTE | 2023-10-09 03:38 | ED.GENADULT ---
HPI - General Adult General Chief complaint: Recheck/Abnormal Lab/Rx Stated complaint: elevated BG, SOB Time Seen by Provider: 10/09/23 01:26 History of Present Illness HPI narrative: 53-year-old male with history of insulin dependent diabetes presented to the ED for evaluation of hyperglycemia. Patient states that he did have some nausea and vomiting a few days ago but states he does feel fine at this time. Patient reports that his blood sugars have been climbing throughout the day. Patient did attempt to give himself pulses from his insulin pump but his blood sugars continue to arise. At time of evaluation patient's blood sugars were greater than 500 but patient denies any pain or complaints. Patient is well-appearing at time of evaluation. Related Data Home Medications Medication Instructions Recorded Confirmed calcitriol 0.25 mcg capsule 0.25 mcg PO QAM 06/04/19 10/09/23 clopidogrel 75 mg tablet 75 mg PO DAILY 06/04/19 10/09/23 ergocalciferol (vitamin D2) 1,250 50,000 unit PO WEEKLY 06/04/19 10/09/23 mcg (50,000 unit) capsule (Vitamin D2) nitroglycerin 0.4 mg sublingual 0.4 mg sublingual Q5-15M PRN Chest 06/04/19 10/09/23 tablet Pain ezetimibe 10 mg tablet (Zetia) 10 mg PO DAILY 09/09/19 10/09/23 isosorbide mononitrate 30 mg 30 mg PO DAILY 09/09/19 10/09/23 tablet,extended release 24 hr ranolazine 500 mg tablet,extended 500 mg PO Q12H 09/24/19 10/09/23 release,12 hr (Ranexa) cetirizine 10 mg tablet (All Day 10 mg PO DAILY 12/26/19 10/09/23 Allergy (cetirizine)) furosemide 80 mg tablet (Lasix) 120 mg PO BID 02/02/20 10/09/23 famotidine 40 mg tablet 40 mg PO HS 03/31/20 10/09/23 atorvastatin 80 mg tablet 80 mg PO HS 11/26/20 10/09/23 colchicine 0.6 mg tablet (Colcrys) 0.6 mg PO QMWF 11/26/20 10/09/23 icosapent ethyl 1 gram capsule 2 g PO BID 06/02/22 10/09/23 (Vascepa) metoprolol succinate 50 mg 50 mg PO DAILY 05/20/23 10/09/23 tablet,extended release 24 hr nifedipine 90 mg tablet,extended 90 mg PO HS 05/20/23 10/09/23 release 24 hr potassium chloride 20 mEq 20 meq PO DAILY 05/20/23 10/09/23 tablet,extended release insulin lispro 100 unit/mL See Rx Instructions .Route .COMPLEX 05/31/23 10/09/23 subcutaneous solution (Humalog U-100 Insulin) cyclosporine 0.05 % eye drops in a 1 drp EACH EYE BID 07/25/23 10/09/23 dropperette (Restasis) febuxostat 40 mg tablet 40 mg PO HS 07/25/23 10/09/23 gemfibrozil 600 mg tablet 600 mg PO BID 07/25/23 10/09/23 insulin aspart U-100 100 unit/mL See Rx Instructions .Route .COMPLEX 07/25/23 10/09/23 subcutaneous solution (Novolog U-100 Insulin aspart) linaclotide 72 mcg capsule 72 mcg PO DAILY 07/25/23 10/09/23 (Linzess) losartan 25 mg tablet 12.5 mg PO HS 07/25/23 10/09/23 calcium acetate(phosphat bind) 667 667 mg PO QID 10/09/23 10/09/23 mg capsule omeprazole 20 mg capsule,delayed 20 mg PO DAILY 10/09/23 10/09/23 release Allergies Allergy/AdvReac Type Severity Reaction Status Date / Time allopurinol Allergy Severe Other Verified 07/25/23 17:08 iohexol Allergy Severe Difficulty Verified 07/25/23 17:08 [From CONTRAST - CT, XRAY] Breathing ticagrelor Allergy Intermediate Rash Verified 07/25/23 17:08 Review of Systems Review of Systems: All systems reviewed & are unremarkable except as noted in HPI and below PMFSH Past Medical History Medical History Anemia in chronic kidney disease Anxiety Arthritis Chronic anticoagulation Congestive heart failure Echocardiogram May 2017 EF of 50% with hypokinetic apical, inferior and basal inferior lateral segment, mild enlargement of left atrium. Coronary artery disease With history of several stents. 05/2022 Complex procedure at [facility]/ stenting of a heavly calcified CX on OM using shockwave tx, Impella. Followed by Dr. Ortega at [facility]. Deep venous thrombosis Chronic right popliteal DVT. Diabetic peripheral ne
[2023-10-09] MEDS: INSULIN HUMAN REGULAR (*BKC) 100 UNITS in SODIUM CHLORIDE 0.9% IV 99 ML 11.5 UNITS IV CONT (03:54)
[2023-10-09 03:58] LABS: Glucose Point of Care > 500 mg/dl (65-105)
[2023-10-09 04:17] LABS: Beta-Hydroxybutyrate/Acetoacetate 2.92 mmol/L (0.02-0.27)
[2023-10-09 04:54] LABS: Influenza A QL RT-PCR Negative (Negative); Influenza B QL RT-PCR Negative (Negative); RSV RNA, RT-PCR Negative (Negative); SARS-CoV-2 RNA PCR Negative (Negative)
[2023-10-09 05:05] LABS: Glucose Point of Care 381 mg/dl (65-105)
--- NOTE | 2023-10-09 05:14 | ADMGEN ---
This patient, Juvenal Daigle Jr., was admitted to intensive care unit 10 @0506 Patient/family oriented to hospital policies and general routines including ID bracelet, bed and alarms, visiting hours, pain management, procedures, bathroom and other care routines, personal items, smoking policy, room service/diet, and visiting hours. Information on how to activate the Rapid Response Team has been discussed. Patient/Family are encouraged to report perceived risks to care and to ask questions if they do not understand what they are told or what they should do.
[2023-10-09 06:17] LABS: Glucose Point of Care 292 mg/dl (65-105)
[2023-10-09 07:36] LABS: Glucose Point of Care 196 mg/dl (65-105)
[2023-10-09 07:52] LABS: MRSA (PCR) NOT DETECTED (NOT DETECTE)
[2023-10-09 08:10] LABS: Anion Gap 16 mmol/L (8-16); Blood Urea Nitrogen 75 mg/dL (9-20); Calcium 9.6 mg/dL (8.4-10.2); Carbon Dioxide 22 mmol/L (22-30); Chloride 92 mmol/L (98-107); Estimated CRCL calculation 9 ml/min; Estimated Glomerular Filt Rate 5; Glucose 179 mg/dL (65-110); Magnesium 2.5 mg/dL (1.6-2.3); Phosphorus 4.7 mg/dL (2.5-4.5); Potassium 4.2 mmol/L (3.4-5.0); Sodium 130 mmol/L (137-145)
[2023-10-09 08:11] LABS: Hemoglobin A1C 7.9 % (<5.7)
--- NOTE | 2023-10-09 08:37 | WPDCNINT ---
Assessment and Plan Assessment and plan (1) Diabetic ketoacidosis: Code(s): E11.10 - Type 2 diabetes mellitus with ketoacidosis without coma Status: Acute Assessment and Plan: It appears the DKA is likely secondary to malfunctioning of his pump as blood sugar has been running high. Patient is afebrile, normal WBC count chest x-ray not suggestive of pneumonia, UA pending He is asymptomatic at this time and does not have any abdominal pain concerning of infection He was given IV fluid bolus and started on IV insulin. His anion gap has closed but I will continue IV insulin infusion until he is able to get his pump and we will transition him back to his insulin pump while inpatient and make sure that it is working adequately and his sugars uncontrolled in preparation of his discharge eventually. Continue serial electrolyte monitoring He is asymptomatic at this time and denies any nausea vomiting abdominal pain hence I will start him on clear liquid diet and advance if tolerated to diabetic (2) Hyperlipidemia: Qualifiers: Hyperlipidemia type: unspecified Qualified Code(s): E78.5 - Hyperlipidemia, unspecified Code(s): E78.5 - Hyperlipidemia, unspecified Status: Chronic Assessment and Plan: Continue statin feboxostat, vescapa, gemfibrozil, Zetia (3) Coronary artery disease: Qualifiers: Coronary Disease-Associated Artery/Lesion type: [place] artery [place] vs. transplanted heart: [place] heart Associated angina: with stable angina Qualified Code(s): I25.118 - Atherosclerotic heart disease of [place] coronary artery with other forms of angina pectoris Code(s): I25.10 - Atherosclerotic heart disease of [place] coronary artery without angina pectoris Status: Chronic Assessment and Plan: Continue Plavix statin apixaban Hold blood pressure medications due to soft blood pressure this time (4) End-stage renal disease on peritoneal dialysis: Code(s): N18.6 - End stage renal disease; Z99.2 - Dependence on renal dialysis Status: Acute Assessment and Plan: Consult nephrology for peritoneal dialysis Plan DVT prophylaxis -continue Eliquis Stress ulcer prophylaxis -continue Pepcid Nutrition -diabetic diet Code Status - Full Code Family updated at bedside Client Services Associate Consult Note Consult date: 10/09/23 Reason for consult: DKA HPI: Juvenal Daigle JrSharath is a 53 year old male with past medical history of diabetes mellitus with history of diabetic ketoacidosis, coronary artery disease, hypertension, obstructive sleep apnea, paroxysmal atrial fibrillation, and end-stage renal disease on peritoneal dialysis who who is well known to [facility] due to past medical admissions presented to the emergency department from home with complaints of high blood sugars. Patient is currently on insulin pump and his insulin rate is 1.8 units per hour during the day from 8:00 a.m. to 8:00 p.m. and 6.5 units/hour at night from 8:00 p.m. to 8:00 a.m.. He gives himself a bolus depending on his carbs take with meals. He states that despite insulin pump showing the correct rate he has sugars have been gradually increasing over last 4-5 days. It seemed to him that his pod where the insulin is dejected was not working properly. He did not call his ticket writer or primary care physician as he felt that they would ask him to go to the ER anyways and presented in ER. Symptom valerio he states that he had 1 episode of abdominal pain 4 days ago when he ate at [employer] and had diarrhea but does symptoms have since resolved. He has not had any pain in last couple of days. He has been doing his PD regularly. He also had 1 episode of vomiting yesterday where some of the gastric pasted came out with no blood in it. Patient denies fever, chest pain, shortness of breath, cough, nausea vomiting at this time, abdominal pain,, diarrhea, headache or constipation. All other systems were reviewed an
[2023-10-09 08:39] LABS: Glucose Point of Care 132 mg/dl (65-105)
[2023-10-09] MEDS: FAMOTIDINE 20 MG TABLET PO ×2 (09:34→20:41)
[2023-10-09] MEDS: cycloSPORINE 0.4 ML OPHTH SOLUTION 1 DROP EACH EYE ×2 (09:35→16:51)
[2023-10-09] MEDS: calcitrioL 0.25 MCG CAPSULE PO (09:35)
[2023-10-09] MEDS: LORATADINE 10 MG TABLET PO (09:35)
[2023-10-09] MEDS: EZETIMIBE 10 MG TABLET PO (09:35)
[2023-10-09] MEDS: APIXABAN 2.5 MG TABLET PO ×2 (09:35→16:51)
[2023-10-09] MEDS: CLOPIDOGREL BISULFATE 75 MG TABLET PO (09:35)
[2023-10-09] MEDS: RANOLAZINE 500 MG TAB.ER.12H PO ×2 (09:35→20:41)
[2023-10-09] MEDS: OMEGA 3 POLYUNSAT FATTY ACIDS 1 GM CAP 2 GM PO ×2 (09:35→16:50)
[2023-10-09] MEDS: LINACLOTIDE 72 MCG CAPSULE PO (09:36)
[2023-10-09] MEDS: CALCIUM ACETATE 667 MG TABLET PO ×3 (09:36→16:51)
[2023-10-09] MEDS: gemfibroziL 600 MG TABLET PO ×2 (09:36→16:51)
[2023-10-09] MEDS: COLCHICINE 0.6 MG TABLET PO (09:36)
[2023-10-09] MEDS: ERGOCALCIFEROL 50,000 UNITS CAPSULE 50000 UNITS PO (09:38)
[2023-10-09 09:39] LABS: Glucose Point of Care 105 mg/dl (65-105)
--- NOTE | 2023-10-09 10:21 | PM.IMHP ---
H&P: HPI History of Present Illness Date/Time: 10/09/23 10:21 Chief Complaint: Elevated glucose Narrative: 53yo male with Type I DM, CHF, CAD and ESRD on PD here for hyperglycemia. Patient began not feeling well past 4 days. He has been compliant with his insulin pump. Insulin runs 1.8 units/hour from 8:00 a.m. to 8:00 p.m. and 6.5 units/hour from 8:00 p.m. to 8:00 a.m.. Began to have nausea with dry heaves. No fever or chills. Been feeling short of breath with a nonproductive cough. Also having diarrhea but no melena, hematochezia or mucus in the stools. No recent antibiotic exposure. No chest pain. He has occasional dysuria but no hematuria. No headache, vision changes, hearing changes, ear pain, dysphagia or odynophagia. He does have chronic lower extremity numbness and tingling from diabetic neuropathy. He has noted that his glucose was elevated greater than 400. He treated himself with insulin boluses with improvement initially but then he noted his glucose was remaining elevated consistently. Was unsure if the tubing was kinked or there was another issue with his pump. He did not change out the tubing prior to admission. He presented to the emergency room for evaluation. In the emergency room, his vital signs were stable. COVID, influenza and RSV PCR were negative. White count and platelet count normal. Hemoglobin was 10 which is lower than his baseline. Sodium was 124 with a bicarb a 19 anion gap of 19. BUN was 72 creatinine 10.5. His glucose was 584. LFTs were normal. Beta hydroxybutyrate level was 2.9. MRSA was negative. Chest x-ray showed minimal pleural effusions with linear left basilar scarring or atelectasis. He was treated with IV insulin. He was admitted to the ICU on insulin drip. Review of Systems Review of Systems: All systems reviewed & are unremarkable except as noted in HPI and below PMFSH Past Medical History Medical History Anemia in chronic kidney disease Anxiety Arthritis Chronic anticoagulation Congestive heart failure Echocardiogram May 2017 EF of 50% with hypokinetic apical, inferior and basal inferior lateral segment, mild enlargement of left atrium. Coronary artery disease With history of several stents. 05/2022 Complex procedure at [place] w/ stenting of a heavly calcified CX on OM using shockwave tx, Impella. Followed by Dr. Ortega at [facility]. Deep venous thrombosis Chronic right popliteal DVT. Diabetic peripheral neuropathy Diabetic retinopathy Elevated LFTs End-stage renal disease on peritoneal dialysis Essential hypertension Gastroesophageal reflux disease Gout Hyperlipidemia Obstructive sleep apnea With inconsistent CPAP use. Paroxysmal atrial fibrillation Peritoneal dialysis status Renal osteodystrophy Secondary hyperparathyroidism of renal origin Seizure X1 with etiology unknown Type 1 diabetes mellitus Onset around age 13. Surgical History Surgical History History of anterior cruciate ligament surgery (2000) Left knee History of appendectomy (2006) History of arthroscopy of left knee History of bilateral carpal tunnel release Right 05/03/2018. Left 06/02/2018. History of cardiac catheterization 01/21/2021 catheterization at [facility], Dr. Hoover done: Little change from prior catheterization. Patent stents in the RCA and PDA. Previously jailed posterolateral is occluded and development of a 50% stenosis of a branch of om 1. Normal LV function. :August 2019 demonstrated patent stents with 40% stenosis of 1 vessel with no stents or angioplasty performed per patient report. :November 2018 at [facility] - stent x3. :March 2017 demonstrating mild diffuse coronary disease 80% lesion small sub branch of obtuse marginal 1 and 90% stenosis distal RCA into the origin of the PDA with PTCA and stent to the RPDA/d
[2023-10-09 10:32] LABS: Glucose Point of Care 176 mg/dl (65-105)
--- NOTE | 2023-10-09 11:14 | PCDIET ---
Physician consult for DKA. Patient is well know to us. Spoke with Hr Generalist today, diet order is advancing as tolerated from clear liquids to DBCC diet. Broadcast Checker to see patient today for further education. Agree with diet orders at this time. No further nutritional interventions needed at this time . Please consult for any further nutritional interventions.
[2023-10-09 11:28] LABS: Glucose Point of Care 168 mg/dl (65-105)
[2023-10-09 12:25] LABS: Anion Gap 15 mmol/L (8-16); Blood Urea Nitrogen 80 mg/dL (9-20); Calcium 9.2 mg/dL (8.4-10.2); Carbon Dioxide 21 mmol/L (22-30); Chloride 91 mmol/L (98-107); Estimated CRCL calculation 9 ml/min; Estimated Glomerular Filt Rate 5; Glucose 165 mg/dL (65-110); Potassium 4.4 mmol/L (3.4-5.0); Sodium 127 mmol/L (137-145)
[2023-10-09 12:41] LABS: Glucose Point of Care 170 mg/dl (65-105)
[2023-10-09 13:45] LABS: Glucose Point of Care 219 mg/dl (65-105)
[2023-10-09 15:41] LABS: Glucose Point of Care 289 mg/dl (65-105)
[2023-10-09 16:04] LABS: Anion Gap 16 mmol/L (8-16); Blood Urea Nitrogen 77 mg/dL (9-20); Calcium 9.2 mg/dL (8.4-10.2); Carbon Dioxide 20 mmol/L (22-30); Chloride 90 mmol/L (98-107); Estimated CRCL calculation 9 ml/min; Estimated Glomerular Filt Rate 5; Glucose 268 mg/dL (65-110); Potassium 4.4 mmol/L (3.4-5.0); Sodium 126 mmol/L (137-145)
[2023-10-09 16:41] LABS: Glucose Point of Care 259 mg/dl (65-105)
--- NOTE | 2023-10-09 16:58 | PM.CNNEP ---
Assessment and Plan Assessment and plan (1) End-stage renal disease on peritoneal dialysis: Code(s): N18.6 - End stage renal disease; Z99.2 - Dependence on renal dialysis Status: Acute Assessment and Plan: End-stage renal disease CHF changes Diabetic ketoacidosis, type 1 diabetes mellitus with end-stage nephropathy Anemia chronic kidney disease Secondary hyperparathyroid due to renal failure Coronary artery disease Benign essential hypertensive renal disease with renal failure Potential food poisoning Obstructive sleep apnea on CPAP with hypoxic acute respiratory failure Plan -end-stage renal disease: Dialysis orders in place, supervising peritoneal dialysis -follow-up of ESRD related needs -makes urine, give diuretic intravenously for cirrhosis-g twice a day -d/w Plant Utilities Engineer earlier and also with hydroelectric station chief History of Present Illness Reason for Consult Consult date: 10/09/23 Reason for consult: end stage renal disease and Other (SOB) Chief Complaint Chief complaint: DKA History of Present Illness Narrative: 53-year-old male with history of ESRD secondary to type 1 diabetes mellitus and hypertension. He has a history of coronary artery disease. Sleep apnea on CPAP. He is on an insulin pump ordinarily. Ill about 4 days ago it at [facility] and became sick. Has had nausea and dry heaving. Some diarrhea. Was not feeling well and stop his insulin, has not eaten for a bit as well. Presents now with DKA and feeling unwell. His side of breath after receiving fluids. Ordinarily makes urine and he is tolerating his dialysis well. He does use extra needle is which helps with his fluid management. Is on CPAP recurrent periods without the oxygen his oxygen saturation is seen to be dropping. There is no lower extremity swelling. Denies any fevers or chills. He is sitting upright in bed for comfort with reference was breathing. He feels a bit tight in his chest due to the shortness of breath. Review of Systems Review of Systems: Rest negative unless per history of presenting illness. [facility] Past Medical History Medical History Anemia in chronic kidney disease Anxiety Arthritis Chronic anticoagulation Congestive heart failure Echocardiogram May 2017 EF of 50% with hypokinetic apical, inferior and basal inferior lateral segment, mild enlargement of left atrium. Coronary artery disease With history of several stents. 05/2022 Complex procedure at [facility]/ stenting of a heavly calcified CX on OM using shockwave tx, Impella. Followed by Dr. Ortega at [facility]. Deep venous thrombosis Chronic right popliteal DVT. Diabetic peripheral neuropathy Diabetic retinopathy Elevated LFTs End-stage renal disease on peritoneal dialysis Essential hypertension Gastroesophageal reflux disease Gout Hyperlipidemia Obstructive sleep apnea With inconsistent CPAP use. Paroxysmal atrial fibrillation Peritoneal dialysis status Renal osteodystrophy Secondary hyperparathyroidism of renal origin Seizure X1 with etiology unknown Type 1 diabetes mellitus Onset around age 13. Surgical History Surgical History History of anterior cruciate ligament surgery (2000) Left knee History of appendectomy (2006) History of arthroscopy of left knee History of bilateral carpal tunnel release Right 05/03/2018. Left 06/02/2018. History of cardiac catheterization 01/21/2021 catheterization at [facility], Dr. Hoover done: Little change from prior catheterization. Patent stents in the RCA and PDA. Previously jailed posterolateral is occluded and development of a 50% stenosis of a branch of om 1. Normal LV function. :August 2019 demonstrated patent stents with 40% stenosis of 1 vessel with no stents or angioplasty performed per patient report. :November 2018 at [facility] - sten
[2023-10-09 17:34] LABS: Glucose Point of Care 196 mg/dl (65-105)
[2023-10-09 18:28] LABS: Glucose Point of Care 198 mg/dl (65-105)
[2023-10-09] MEDS: FUROSEMIDE INJ 100 MG/10 ML VIAL 80 MG IV PUSH (18:47)
[2023-10-09 19:37] LABS: Glucose Point of Care 133 mg/dl (65-105)
[2023-10-09 20:25] LABS: Anion Gap 13 mmol/L (8-16); Blood Urea Nitrogen 78 mg/dL (9-20); Calcium 9.4 mg/dL (8.4-10.2); Carbon Dioxide 21 mmol/L (22-30); Chloride 92 mmol/L (98-107); Estimated CRCL calculation 9 ml/min; Estimated Glomerular Filt Rate 5; Glucose 136 mg/dL (65-110); Potassium 4.3 mmol/L (3.4-5.0); Sodium 126 mmol/L (137-145)
[2023-10-09 20:37] LABS: Glucose Point of Care 124 mg/dl (65-105)
[2023-10-09] MEDS: ATORVASTATIN 40 MG TABLET 80 MG PO (20:40)
[2023-10-09] MEDS: FEBUXOSTAT 40 MG TABLET PO (20:41)
[2023-10-09 21:40] LABS: Glucose Point of Care 136 mg/dl (65-105)
[2023-10-09 22:33] LABS: Glucose Point of Care 134 mg/dl (65-105)
[2023-10-09 23:35] LABS: Glucose Point of Care 139 mg/dl (65-105)
[2023-10-10] VITALS (19 sets, daily range): BP systolic 110–134; BP diastolic 65–80; PULSE 54–78; RESP 12–22; TEMP 36.6–37.1; O2SAT 90–98
[2023-10-10 00:30] LABS: Glucose Point of Care 155 mg/dl (65-105)
[2023-10-10 01:22] LABS: Anion Gap 13 mmol/L (8-16); Blood Urea Nitrogen 79 mg/dL (9-20); Calcium 9.4 mg/dL (8.4-10.2); Carbon Dioxide 22 mmol/L (22-30); Chloride 91 mmol/L (98-107); Estimated CRCL calculation 9 ml/min; Estimated Glomerular Filt Rate 5; Glucose 193 mg/dL (65-110); Potassium 4.3 mmol/L (3.4-5.0); Sodium 126 mmol/L (137-145)
[2023-10-10 01:41] LABS: Glucose Point of Care 234 mg/dl (65-105)
[2023-10-10 02:40] LABS: Glucose Point of Care 246 mg/dl (65-105)
[2023-10-10 03:36] LABS: Glucose Point of Care 259 mg/dl (65-105)
[2023-10-10 04:36] LABS: Hematocrit 30.6 % (42.0-52.0); Hemoglobin 10.1 g/dL (14.0-18.0); Mean Corpuscular Hemoglobin 29.5 pg (26-34); Mean Corpuscular Volume 89.5 fl (80-100); Mean Platelet Volume 10.3 fl (7.4-10.4); Platelet Count Result 263 k/mm3 (150-375); Red Blood Count 3.42 M/mm3 (4.6-6.20); Red Cell Distribution Width 13.4 % (11.5-14.5); White Blood Count 4.3 K/mm3 (4.5-10.0)
[2023-10-10 04:41] LABS: Glucose Point of Care 266 mg/dl (65-105)
[2023-10-10 04:53] LABS: Alanine Aminotransferase 22 U/L (6-50); Albumin Level 3.7 g/dL (3.5-5.1); Alkaline Phosphatase 89 U/L (38-126); Anion Gap 12 mmol/L (8-16); Aspartate Amino Transferase 32 U/L (17-59); Bilirubin,Total 0.8 mg/dL (0.2-1.3); Blood Urea Nitrogen 77 mg/dL (9-20); Calcium 9.5 mg/dL (8.4-10.2); Carbon Dioxide 22 mmol/L (22-30); Chloride 91 mmol/L (98-107); Estimated CRCL calculation 9 ml/min; Estimated Glomerular Filt Rate 5; Glucose 272 mg/dL (65-110); Magnesium 2.6 mg/dL (1.6-2.3); Sodium 125 mmol/L (137-145)
[2023-10-10 05:44] LABS: Glucose Point of Care 295 mg/dl (65-105)
[2023-10-10] MEDS: LINACLOTIDE 72 MCG CAPSULE PO (05:44)
[2023-10-10] MEDS: gemfibroziL 600 MG TABLET PO ×2 (05:45→16:30)
[2023-10-10 06:35] LABS: Glucose Point of Care 266 mg/dl (65-105)
[2023-10-10 07:43] LABS: Glucose Point of Care 262 mg/dl (65-105)
[2023-10-10] MEDS: FAMOTIDINE 20 MG TABLET PO ×2 (08:31→21:14)
[2023-10-10] MEDS: APIXABAN 2.5 MG TABLET PO ×2 (08:31→16:30)
[2023-10-10] MEDS: calcitrioL 0.25 MCG CAPSULE PO (08:31)
[2023-10-10] MEDS: CALCIUM ACETATE 667 MG TABLET PO ×3 (08:31→16:30)
[2023-10-10] MEDS: LORATADINE 10 MG TABLET PO (08:31)
[2023-10-10] MEDS: OMEGA 3 POLYUNSAT FATTY ACIDS 1 GM CAP 2 GM PO ×2 (08:31→16:30)
[2023-10-10] MEDS: FUROSEMIDE INJ 100 MG/10 ML VIAL 80 MG IV PUSH ×2 (08:32→16:30)
[2023-10-10] MEDS: INSULIN GLARGINE (*BKC) 100 UNITS/ML 45 UNITS SUB-Q (08:32)
[2023-10-10] MEDS: RANOLAZINE 500 MG TAB.ER.12H PO ×2 (08:32→21:13)
[2023-10-10] MEDS: EZETIMIBE 10 MG TABLET PO (08:32)
[2023-10-10] MEDS: CLOPIDOGREL BISULFATE 75 MG TABLET PO (08:32)
[2023-10-10] MEDS: cycloSPORINE 0.4 ML OPHTH SOLUTION 1 DROP EACH EYE ×2 (08:35→16:30)
--- NOTE | 2023-10-10 11:31 | PCFNICU ---
ICU Rounding Note: Pt current nutrition is DBCC. . Last recorded weight is 118.1 kg. Bowel Motility:No BM reported. Labs Reviewed:Glu 272, GFR 5, BUN 77, Cr 11.0,Glu 272, Hct 30.6,Hgb 10.1 Meds Noted:Lantus, Lasix Skin: WNL Additional Notes: Patient tolerated clear liquids this morning, diet order advancing to Diabetic consistent carb for lunch. Agree with diet orders. Following daily in ICU rounds.
[2023-10-10 11:55] LABS: Glucose Point of Care 172 mg/dl (65-105)
--- NOTE | 2023-10-10 13:02 | WPDINTPN ---
Progress Note: A&P Assessment and Plan (1) Diabetic ketoacidosis: Code(s): E11.10 - Type 2 diabetes mellitus with ketoacidosis without coma Status: Acute Assessment and Plan: It appears the DKA is likely secondary to malfunctioning of his pump as blood sugar has been running high. -Patient is afebrile, normal WBC count chest x-ray not suggestive of pneumonia, UA pending -He is asymptomatic at this time and does not have any abdominal pain concerning of infection -He was given IV fluid bolus and started on IV insulin. -10/10: Patient transitioned to long-acting insulin, Lantus, sliding scale insulin and Accu-Cheks -patient stated that he is going to be getting in touch with for the insulin pump people in last them to send them a new pump. -started on diabetic diet -family educator and dietitian have been consulted -hemoglobin A1c 7.9 this admission (2) Hyperlipidemia: Qualifiers: Hyperlipidemia type: unspecified Qualified Code(s): E78.5 - Hyperlipidemia, unspecified Code(s): E78.5 - Hyperlipidemia, unspecified Status: Chronic Assessment and Plan: Continue statin feboxostat, vescapa, gemfibrozil, Zetia (3) Coronary artery disease: Qualifiers: Coronary Disease-Associated Artery/Lesion type: [place] artery [place] vs. transplanted heart: [place] heart Associated angina: with stable angina Qualified Code(s): I25.118 - Atherosclerotic heart disease of [place] coronary artery with other forms of angina pectoris Code(s): I25.10 - Atherosclerotic heart disease of [place] coronary artery without angina pectoris Status: Chronic Assessment and Plan: Continue Plavix, statin apixaban Hold blood pressure medications due to soft blood pressure this time (4) End-stage renal disease on peritoneal dialysis: Code(s): N18.6 - End stage renal disease; Z99.2 - Dependence on renal dialysis Status: Acute Assessment and Plan: Nephrology following patient for peritoneal dialysis Plan DVT prophylaxis -continue Eliquis Stress ulcer prophylaxis -continue Pepcid Nutrition -diabetic diet Code Status - Full Code Critical care time: 32 minutes Due to a high probability of clinically significant, life threatening deterioration, the patient required my highest level of preparedness to intervene emergently and I personally spent this critical care time directly and personally managing the patient. This critical care time included obtaining a history; examining the patient; pulse oximetry; ordering and review of studies; arranging urgent treatment with development of a management plan; evaluation of patient's response to treatment; frequent reassessment; and discussions with other providers. It was exclusive of separately billable procedures and treating other patients and teaching time. Please see Assessment and Plan section and the rest of the note for further information on patient assessment and treatment This dictation may have been done utilizing a voice recognition system. Attempts have been made to correct errors. However, there may be uncorrected grammatical, spelling, and recognitions errors present. Subjective Date/time seen: 10/10/23 13:02 Interval history: Reason for consult, diabetic ketoacidosis, hyperglycemia, paroxysmal atrial fibrillation, abdominal pain with diarrhea and nausea but no vomiting. 10/10/2019 focal Patient seen examined this morning, remains on insulin infusion for DKA, anion gap has closed, patient was transition this morning to long-acting insulin and sliding scale insulin with Accu-Chek. Started on diabetic diet. Hemodynamically stable, afebrile. Peritoneal dialysis done overnight. Review of Systems Review of Systems: All systems reviewed & are unremarkable except as noted in HPI and below (HPI) Exam Narrative: General: Pt is alert awake and in NAD Lungs/Chest: Trachea central Clear BS B/L, No crackles or wheezing.
--- NOTE | 2023-10-10 15:43 | PM.IMPN ---
Progress Note: A&P Assessment and Plan (1) Diabetic ketoacidosis: Code(s): E11.10 - Type 2 diabetes mellitus with ketoacidosis without coma Status: Acute Assessment and Plan: Patient presents with hyperglycemia, nausea and vomiting. Glucose >500. Beta hydroxybutyrate level 2.9 with metabolic gap acidosis consistent with DKA. Admitted to ICU started on insulin drip. Gap has closed. Patient brought in his insulin pump but concern it may not be functioning well thus the cause of his DKA episode. Consider also infectious etiology. Urinalysis pending. Not on abx. He has been transitioned to Lantus (2) Hyponatremia: Code(s): E87.1 - Hypo-osmolality and hyponatremia Status: Acute Assessment and Plan: Sodium 124 on admission. [place] related to the hyperglycemia with improvement of sodium to 130 as his glucose improved. Sodium dropped again to 125. Related to dialysis? Nephrology following and appreciate their input (3) Type 1 diabetes mellitus: Code(s): E10.9 - Type 1 diabetes mellitus without complications Status: Acute Assessment and Plan: A1c 7.9. The patient's blood glucose was reviewed on 10/10 Glucose higher as we transtion from insulin drip to Lantus. Continue AccuCheks covering with sliding scale. Hypoglycemia protocol available as needed. personal development educator was consulted. Dietitian to see as well. As above. (4) End-stage renal disease on peritoneal dialysis: Code(s): N18.6 - End stage renal disease; Z99.2 - Dependence on renal dialysis Status: Acute Assessment and Plan: Patient with end-stage renal disease most likely related to his diabetes. Nephrology consulted and appreciate their input. Continue peritoneal dialysis per their recommendation Continue CaAcetate and Calcitriol. (5) Paroxysmal atrial fibrillation: Code(s): I48.0 - Paroxysmal atrial fibrillation Status: Acute Assessment and Plan: Patient with paroxysmal AFib. No EKG obtained here but previous EKG showing normal sinus rhythm. Metoprolol held due to soft blood pressure. Eliquis has been continued. Continue to monitor on telemetry (6) Anemia in chronic kidney disease: Code(s): N18.9 - Chronic kidney disease, unspecified; D63.1 - Anemia in chronic kidney disease Status: Chronic Assessment and Plan: Hemoglobin mostly in the 11-12 range. Hemoglobin 10.1 on admission which is slightly lower than his baseline. Hgb stable in the 10 range. Will continue monitor. (7) Essential hypertension: Code(s): I10 - Essential (primary) hypertension Status: Chronic Assessment and Plan: Patient's blood pressure was reviewed on 10/10 Blood pressure improved Will continue to monitor (8) Obstructive sleep apnea: Code(s): G47.33 - Obstructive sleep apnea (adult) (pediatric) Status: Chronic Assessment and Plan: Mostly compliant with CPAP at home. Continue here. Plan Possible thyroid nodule - check thyroid US once off insulin drip. Check TSH DVT prophylaxis -Eliquis Code status -full Subjective Date/time seen: 10/10/23 15:43 Interval history: 53yo male with Type I DM, CHF, CAD and ESRD on PD here for hyperglycemia.?? Tolerated PD last night. Voiding normally for him. +BMs. Feeling better. No CP. Not on home o2. No SOB but has ROONEY. Did wear his mask last night. Exam Narrative: AF 98.0 127/69 73 17 96% 2L Gen - NARD Chest - decreased BS in the bases o/w clear. CV - RRR S1/S2. Tele showing no significant dysrhythmias Abd - Soft, NT/ND, Positive BS. +PD catheter dressing clean and dry Ext - No pedal edema Neuro - Alert and oriented. Nonfocal exam. Psych - Nml mood and affect Skin - Warm and dry Objective Data Vital Signs Vital Signs: Vital Signs - 24 hr 10/09/23 16:00 10/09/23 16:00 10/09/23 16:00 Temperature 97.6 F Pulse Rate 60 60 Resp
[2023-10-10 15:52] LABS: Glucose Point of Care 382 mg/dl (65-105)
[2023-10-10] MEDS: INSULIN ASPART (*BKC) 100 UNITS/ML 10 UNITS SUB-Q (17:32)
[2023-10-10] MEDS: INSULIN ASPART (*BKC) 100 UNITS/ML SUB-Q ×2 (17:32→21:11)
--- NOTE | 2023-10-10 17:41 | PM.PNNEP ---
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 Maintain diuretics. -follow-up of ESRD related needs -makes urine, give diuretic intravenously Lasix twice a day -the patient seen in the intensive care unit. Subjective Date/time seen: 10/10/23 17:41 Interval history: Follow-up renal failure/ESRD Continue was feeling better earlier today, currently feeling a bit short of breath, sitting upright, states that sugars have gone up again. There is some lower extremity swelling. He is restricting his fluid. Exam Narrative: Well-developed well-nourished, off CPAP currently, not on oxygen, however feels mildly short of breath, JVD is hard to see, normal skin turgor, no pallor, no icterus, aspirin Cozaar, regular rate rhythm, no gallop, equal breath sounds, few right basilar crackles, abdomen soft nontender, edema plus, alert oriented signal manometer Objective Data Vital Signs Vital Signs: Vital Signs - 24 hr 10/09/23 18:00 10/09/23 18:00 10/09/23 18:51 Temperature Pulse Rate 59 L 59 L Respiratory Rate 19 Blood Pressure 111/81 Pulse Oximetry 88 L Oxygen Delivery CPAP Oxygen Flow Rate Fraction of Inspired Oxygen 70 10/09/23 18:20 10/09/23 19:44 10/09/23 23:04 Temperature Pulse Rate Respiratory Rate 18 23 H Blood Pressure Pulse Oximetry 96 96 Oxygen Delivery CPAP CPAP CPAP Oxygen Flow Rate Fraction of Inspired Oxygen 60 10/09/23 20:00 10/09/23 22:00 10/09/23 20:00 Temperature 36.8 C 36.8 C Pulse Rate 61 56 L 59 L Respiratory Rate 19 15 Blood Pressure 117/79 112/72 Pulse Oximetry 95 95 Oxygen Delivery Oxygen Flow Rate Fraction of Inspired Oxygen 10/09/23 20:00 10/10/23 00:00 10/10/23 00:00 Temperature Pulse Rate 55 L Respiratory Rate Blood Pressure Pulse Oximetry 96 95 Oxygen Delivery CPAP CPAP Oxygen Flow Rate Fraction of Inspired Oxygen 70 70 10/09/23 23:58 10/09/23 22:00 10/10/23 00:00 Temperature 36.4 C 36.7 C Pulse Rate 59 L 56 L 55 L Respiratory Rate 18 17 Blood Pressure 111/81 114/72 Pulse Oximetry 98 95 Oxygen Delivery BiPAP Oxygen Flow Rate Fraction of Inspired Oxygen 10/10/23 02:20 10/10/23 02:00 10/10/23 02:00 Temperature 36.7 C Pulse Rate 60 60 Respiratory Rate 18 19 Blood Pressure 134/73 Pulse Oximetry 95 92 Oxygen Delivery CPAP Oxygen Flow Rate Fraction of Inspired Oxygen 10/10/23 04:00 10/10/23 04:00 10/10/23 05:41 Temperature 36.6 C Pulse Rate 54 L 57 L Respiratory Rate 16 21 H Blood Pressure 118/77 Pulse Oximetry 95 97 Oxygen Delivery CPAP Oxygen Flow Rate Fraction of Inspired Oxygen 10/10/23 06:00 10/10/23 04:00 10/10/23 06:00 Temperature 36.8 C Pulse Rate 54 L 55 L Respiratory Rate 17 Blood Pressure 122/79 Pulse Oximetry 97 95 Oxygen Delivery CPAP Oxygen Flow Rate Fraction of Inspired Oxygen 70 10/10/23 08:00 10/10/23 08:00 10/10/23 08:00 Temperature 37.1 C Pulse Rate 58 L 58 L Respiratory Rate 19 Blood Pressure 130/67 Pulse Oximetry 94 98 Oxygen Delivery Nasal Cannula Oxygen Flow Rate 6 Fraction of
--- NOTE | 2023-10-10 18:31 | ECG_ITS ---
Measurements Intervals [place] Rate: 100 P: 63 NE: 210 QRS: -14 QRSD: 162 T: 123 QT: 423 QTc: 546 Interpretive Statements SINUS TACHYCARDIA WITH FIRST DEGREE AV BLOCK WITH OCCASIONAL VENTRICULAR PREMATURE COMPLEXES WITH FREQUENT SUPRAVENTRICULAR PREMATURE COMPLEXES INTRAVENTRICULAR CONDUCTION DELAY [130+ ms QRS DURATION] CANNOT RULE OUT iNFERIOR MYOCARDIAL INFARCTIO INDETERMINATE AGE ABNORMAL ECG INTERPRETATION BASED ON A DEFAULT AGE OF 40 YEARS COMPARED TO ECG 07/26/2023 21:33:30 SINUS TACHYCARDIA NOW PRESENT FIRST DEGREE AV BLOCK NOW PRESENT Electronically Signed On 10-11-2023 16:17:17 FLATBED OWNER OPERATOR by Aba Flores M.D.
[2023-10-10] MEDS: METOPROLOL TARTRATE 25 MG TABLET PO (19:38)
[2023-10-10 20:07] LABS: Appearance Urine Cloudy (Clear); Bacteria Urine None Seen /hpf; Bilirubin Urine 1+ (Negative); Blood Urine Trace (Negative); Color Urine Dark Yellow (Yellow); Glucose Urine UA 2+ mg/dL (Negative); Hyaline Casts Urine Present /lpf; Ketones Urine Trace mg/dL (Negative); Leukocyte Esterase Ur 1+ LEU/UL (Negative); Mucus Urine Present /lpf; Need Manual Microscopic Reviewed; Nitrate Urine Negative (Negative); Non Pathogenic Casts >20; Protein Urine 1+ mg/dL (Negative); RBC Urine 0-2 /hpf (0-2); Specific Grav Ur 1.021 (1.001-1.035); Squamous Epithelial Cell Urine Moderate /hpf (Few)
[2023-10-10 20:11] LABS: Add Urine Microscopic? YES
--- NOTE | 2023-10-10 20:58 | ECG_ITS ---
Measurements Intervals [place] Rate: 69 P: 84 CA: 209 QRS: 212 QRSD: 148 T: 82 QT: 457 QTc: 491 Interpretive Statements SINUS RHYTHM BASELINE ARTIFACT INTRAVENTRICULAR CONDUCTION DELAY [130+ ms QRS DURATION] LIMB LEADS MISPLACED WARNING: DATA QUALITY MAY AFFECT INTERPRETATION ABNORMAL ECG COMPARED TO ECG 10/10/2023 18:39:16 SINUS RHYTHM NOW PRESENT MYOCARDIAL INFARCT FINDING NOW PRESENT Electronically Signed On 10-11-2023 16:19:59 POULTRYMAN by Aba Flores M.D.
[2023-10-10] MEDS: ATORVASTATIN 40 MG TABLET 80 MG PO (21:10)
[2023-10-10] MEDS: ISOSORBIDE DINITRATE 10 MG TABLET PO (21:12)
[2023-10-10] MEDS: FEBUXOSTAT 40 MG TABLET PO (21:14)
[2023-10-10] MEDS: ASPIRIN 325 MG TABLET PO (22:20)
[2023-10-10 22:32] LABS: Glucose Point of Care 381 mg/dl (65-105)
[2023-10-10 23:22] LABS: Glucose Point of Care 407 mg/dl (65-105)
[2023-10-10] MEDS: INSULIN ASPART (*BKC) 100 UNITS/ML 12 UNITS SUB-Q (23:50)
[2023-10-11] VITALS (17 sets, daily range): BP systolic 110–124; BP diastolic 61–84; PULSE 55–78; RESP 12–22; TEMP 36.4–37.1; O2SAT 91–98
--- NOTE | 2023-10-11 | ECHO_ITS ---
Patient Info Name: Juvenal Daigle Age: 53 years : 1970 Gender: Male Ht: 70 in Wt: 255 lbs BSA: 2.43 m2 HR: 55 bpm BP: 111 / 67 mmHg Heart Rhythm: Sinus Rhythm Technical Quality: Good Exam Date: 10/11/2023 1:37 PM Exam Location: Echo Lab Patient Status: Inpatient Admit Date: 10/10/2023 Staff Ordering Physician: Nisha Akbar DO Floor Coverer: Kathy Schmidt RDCS Attending Provider: Jamar Reed MD Referring Physician: Naomie ROSENTHAL; Exam Type: CA echo dop color flow w con Study Info Indications - elevated troponin and chest pressure Complete two-dimensional, color flow and Doppler transthoracic echocardiogram is performed with contrast to opacify the left ventricle and to improve the deliniation of the left ventricle endocardial borders. Contrast/Agitated Saline Contrast/Ag. Saline: Definity Amount: 2.00 ml Administered By: Kathy Schmidt RDCS Existing IV Access: Yes IV Access Condition: patent with no signs of infiltration Summary 1. Left ventricular chamber dimension is mildly enlarged. 2. Left ventricular systolic function is severely reduced, estimated at 20-25%. 3. There is mildly increased left ventricular wall thickness. 4. Right ventricular systolic function is reduced. 5. There is severe aortic valve calcification. 6. There is moderate aortic valve stenosis with a peak velocity of 257.23 cm/s, mean gradient of 13 mmHg, and aortic valve area of 1.04 cm2. 7. There is mild aortic valve regurgitation. 8. There is moderate mitral valve regurgitation. 9. There is mild tricuspid valve regurgitation. 10. Pulmonary hypertension, estimated pulmonary arterial systolic pressure is 54 mmHg. 11. Left pleural effusion noted. Left Ventricle Left ventricular chamber dimension is mildly enlarged. Left ventricular systolic function is severely reduced, estimated at 20-25%. There is mildly increased left ventricular wall thickness. Right Ventricle Right ventricular chamber dimension is normal. Right ventricular systolic function is reduced. Left Atria Left atrial chamber dimension is normal. Right Atria Right atrial chamber dimension is normal. Atrial Septum Intact interatrial septum visualized by color flow imaging. Aortic Valve The aortic valve is probable trileaflet. There is moderate aortic valve stenosis with a peak velocity of 257.23 cm/s, mean gradient of 13 mmHg, and aortic valve area of 1.04 cm2. There is mild aortic valve regurgitation. There is severe aortic valve calcification. Pulmonic Valve The pulmonic valve is not well visualized. There is trace pulmonic regurgitation. Mitral Valve There is moderate mitral valve regurgitation. Tricuspid Valve There is mild tricuspid valve regurgitation. Pulmonary hypertension, estimated pulmonary arterial systolic pressure is 54 mmHg. Pericardium/Pleural Left pleural effusion noted. There is no pericardial effusion. Inferior Vena Cava Dilated inferior vena cava with <50% collapse upon inspiration consistent with elevated right atrial pressure, 15 mmHg. Aorta The aortic root size at the sinus of Valsalva is normal. Left Ventricular Outflow Tract Name Value Normal LVOT 2D LVOT Diameter 2.13 cm LVOT Doppler
[2023-10-11 00:58] LABS: Glucose Point of Care 395 mg/dl (65-105)
[2023-10-11 02:34] LABS: Basophils Percent Auto 0.7 % (0.2-1.2); Eosinophils Absolute Auto 0.2 K/mm3 (0-0.3); Eosinophils Percent Auto 3.6 % (0-4.4); Hematocrit 27.6 % (42.0-52.0); Hemoglobin 9.1 g/dL (14.0-18.0); Immature Granulocyte Absolute 0.02 K/mm3 (0.00-0.031); Immature Granulocyte Percent A 0.5 % (0-0.5); Lymphocytes Absolute Auto 1.25 K/mm3 (0.9-3.2); Lymphocytes Percent Auto 29.8 % (18.3-44.2); Mean Corpuscular Hemoglobin 29.1 pg (26-34); Mean Corpuscular Volume 88.2 fl (80-100); Mean Platelet Volume 10.6 fl (7.4-10.4); Monocytes Absolute Auto 0.7 K/mm3 (0.1-0.6); Monocytes Percent Auto 16.7 % (2.6-8.5); Neutrophils Absolute Auto 2.1 K/mm3 (1.3-6.7); Neutrophils Percent Auto 48.7 % (45.5-73.1); Platelet Count Result 274 k/mm3 (150-375); Red Blood Count 3.13 M/mm3 (4.6-6.20); Red Cell Distribution Width 13.5 % (11.5-14.5); White Blood Count 4.2 K/mm3 (4.5-10.0)
[2023-10-11 02:35] LABS: Alanine Aminotransferase 21 U/L (6-50); Albumin Level 3.5 g/dL (3.5-5.1); Alkaline Phosphatase 92 U/L (38-126); Anion Gap 14 mmol/L (8-16); Aspartate Amino Transferase 26 U/L (17-59); Bilirubin,Total 0.5 mg/dL (0.2-1.3); Blood Urea Nitrogen 72 mg/dL (9-20); Calcium 8.8 mg/dL (8.4-10.2); Carbon Dioxide 22 mmol/L (22-30); Chloride 90 mmol/L (98-107); Estimated CRCL calculation 9 ml/min; Estimated Glomerular Filt Rate 5; Glucose 363 mg/dL (65-110); Magnesium 2.3 mg/dL (1.6-2.3); Phosphorus 5.8 mg/dL (2.5-4.5); Potassium 3.9 mmol/L (3.4-5.0); Sodium 126 mmol/L (137-145)
[2023-10-11 03:34] LABS: Thyroid Stimulating Hormone Reflex 0.475 uIU/mL (0.465-4.68)
[2023-10-11] MEDS: LINACLOTIDE 72 MCG CAPSULE PO (06:15)
[2023-10-11] MEDS: gemfibroziL 600 MG TABLET PO ×2 (06:15→16:57)
[2023-10-11 07:57] LABS: Glucose Point of Care 312 mg/dl (65-105)
[2023-10-11] MEDS: EZETIMIBE 10 MG TABLET PO (08:26)
[2023-10-11] MEDS: cycloSPORINE 0.4 ML OPHTH SOLUTION 1 DROP EACH EYE ×2 (08:26→16:57)
[2023-10-11] MEDS: RANOLAZINE 500 MG TAB.ER.12H PO ×2 (08:26→20:38)
[2023-10-11] MEDS: CALCIUM ACETATE 667 MG TABLET PO ×3 (08:26→16:57)
[2023-10-11] MEDS: METOPROLOL TARTRATE 25 MG TABLET PO ×2 (08:27→20:38)
[2023-10-11] MEDS: CLOPIDOGREL BISULFATE 75 MG TABLET PO (08:27)
[2023-10-11] MEDS: FAMOTIDINE 20 MG TABLET PO ×2 (08:27→20:38)
[2023-10-11] MEDS: INSULIN ASPART (*BKC) 100 UNITS/ML 10 UNITS SUB-Q ×3 (08:27→16:57)
[2023-10-11] MEDS: OMEGA 3 POLYUNSAT FATTY ACIDS 1 GM CAP 2 GM PO ×2 (08:27→16:58)
[2023-10-11] MEDS: calcitrioL 0.25 MCG CAPSULE PO (08:27)
[2023-10-11] MEDS: LORATADINE 10 MG TABLET PO (08:27)
[2023-10-11] MEDS: ISOSORBIDE MONONITRATE 30 MG TAB.ER.24H PO (08:27)
[2023-10-11] MEDS: FUROSEMIDE INJ 100 MG/10 ML VIAL 80 MG IV PUSH ×2 (08:27→16:58)
[2023-10-11] MEDS: INSULIN GLARGINE (*BKC) 100 UNITS/ML 45 UNITS SUB-Q (08:28)
[2023-10-11] MEDS: INSULIN ASPART (*BKC) 100 UNITS/ML SUB-Q (08:28)
[2023-10-11] MEDS: COLCHICINE 0.6 MG TABLET PO (08:43)
--- NOTE | 2023-10-11 11:30 | PM.CNCAR ---
Assessment and Plan Assessment and plan (1) NSTEMI (non-ST elevated myocardial infarction): Code(s): I21.4 - Non-ST elevation (NSTEMI) myocardial infarction Status: Acute Assessment and Plan: Admitted on 10/09 for DKA. On evening of 10/10, he had an episode of substernal chest pressure with radiation to his left arm that lasted for about 30 minutes. Patient reports that he does get occasional chest pressure at home, but feels like it has been increasing in frequency lately. Occurs couple times a week. He is currently chest pain free. Troponins were checked and were found to be elevated at 5.66, 5.74, 6.06. Troponin levels in July 2023 were 0.679 and 0.666. EKGs without ischemic changes. Last echocardiogram in July 2023 showed LVEF 40-45%. Repeat echocardiogram has been ordered. Will obtain repeat troponin level this morning to see if his levels are still rising. Start ASA 81mg once daily, continue Plavix 75mg once daily. Eliquis is now placed on hold, however, he did receive a dose on evening of 10/10. Likely will need cardiac catheterization given report of progressive anginal symptoms, significantly higher troponin levels compared to his baseline. However, will need a 48 hour washout period from Eliquis. Therefore, cath would be done on Friday 10/13. In addition, he does have a contrast allergy listed, therefore, will need to be premedication starting on evening of 10/12. (2) DKA (diabetic ketoacidosis): Code(s): E11.10 - Type 2 diabetes mellitus with ketoacidosis without coma Status: Acute Assessment and Plan: Resolved. No longer under ICU care now. Management of diabetes as per primary team. (3) Coronary artery disease: Qualifiers: Coronary Disease-Associated Artery/Lesion type: [place] artery [place] vs. transplanted heart: [place] heart Associated angina: with stable angina Qualified Code(s): I25.118 - Atherosclerotic heart disease of [place] coronary artery with other forms of angina pectoris Code(s): I25.10 - Atherosclerotic heart disease of [place] coronary artery without angina pectoris Status: Chronic Assessment and Plan: Has known complex coronary artery disease. Will start ASA as noted above. Continue Plavix, statin, Ranolazine, Metoprolol. Will increase his Imdur to 60mg. (4) Congestive heart failure: Qualifiers: Heart failure chronicity: acute on chronic Heart failure type: unspecified Qualified Code(s): I50.9 - Heart failure, unspecified Code(s): I50.9 - Heart failure, unspecified Status: Acute Assessment and Plan: Last echocardiogram in July 2023 showed LVEF 40-45%. Echocardiogram ordered and pending. (5) Paroxysmal atrial fibrillation: Code(s): I48.0 - Paroxysmal atrial fibrillation Status: Acute Assessment and Plan: Continue Metoprolol. Eliquis on hold in anticipation of cardiac cath. (6) End-stage renal disease on peritoneal dialysis: Code(s): N18.6 - End stage renal disease; Z99.2 - Dependence on renal dialysis Status: Acute Assessment and Plan: Nephrology has been consulted. (7) Hyperlipidemia: Qualifiers: Hyperlipidemia type: unspecified Qualified Code(s): E78.5 - Hyperlipidemia, unspecified Code(s): E78.5 - Hyperlipidemia, unspecified Status: Chronic Assessment and Plan: Continue statin, Zetia, Gemfibrozil. History of Present Illness History of Present Illness Consult date/time: 10/11/23 11:30 Requesting physician: Betsey Posada PA-C Consult reason: chest pain Reason For Visit: DKA Narrative: We are consulted for chest pain and elevated troponin levels. This is a 53 year old male with complex coronary artery disease s/p PCI, ESRD on peritoneal dialysis, congestive heart failure, paroxysmal atrial fibrillation on Eliquis, BEN who presented on 10/09 with high blood sugars and was found to be in DKA, thought to be due to ma
--- NOTE | 2023-10-11 11:35 | ECG_ITS ---
Measurements Intervals [place] Rate: 62 P: 40 ID: 213 QRS: -28 QRSD: 157 T: 135 QT: 461 QTc: 471 Interpretive Statements SINUS RHYTHM WITH FIRST DEGREE AV BLOCK LEFT BUNDLE BRANCH BLOCK [120+ ms QRS DURATION, 80+ ms Q/S IN V1/V2, 85+ ms R IN I/aVL/V5/V6] ABNORMAL ECG COMPARED TO ECG 10/10/2023 21:05:46 LEFT BUNDLE-BRANCH BLOCK NOW PRESENT Electronically Signed On 10-11-2023 16:28:13 MANAGER OF FINANCIAL by Aba Flores M.D.
[2023-10-11 12:01] LABS: Basophils Percent Auto 0.4 % (0.2-1.2); Eosinophils Absolute Auto 0.2 K/mm3 (0-0.3); Eosinophils Percent Auto 3.2 % (0-4.4); Hematocrit 30.1 % (42.0-52.0); Hemoglobin 9.8 g/dL (14.0-18.0); Immature Granulocyte Absolute 0.02 K/mm3 (0.00-0.031); Immature Granulocyte Percent A 0.4 % (0-0.5); Lymphocytes Absolute Auto 2.13 K/mm3 (0.9-3.2); Lymphocytes Percent Auto 42.8 % (18.3-44.2); Mean Corpuscular HGB Conc 32.6 g/dl (32-36); Mean Corpuscular Hemoglobin 29.3 pg (26-34); Mean Corpuscular Volume 89.9 fl (80-100); Monocytes Absolute Auto 0.7 K/mm3 (0.1-0.6); Monocytes Percent Auto 14.1 % (2.6-8.5); Neutrophils Percent Auto 39.1 % (45.5-73.1); Platelet Count Result 309 k/mm3 (150-375); Red Blood Count 3.35 M/mm3 (4.6-6.20); Red Cell Distribution Width 13.4 % (11.5-14.5)
[2023-10-11 12:11] LABS: INR 1.3; Partial Thromboplastin Time 34.2 SECONDS (22.3-36.8); Prothrombin Time 17.2 Seconds (11.1-14.7)
[2023-10-11] MEDS: HEPARIN SOD/D5W 100 UNITS/ML 25,000 UNITS/250 ML BAG 10 UNITS IV CONT (12:16)
[2023-10-11 12:25] LABS: Glucose Point of Care 128 mg/dl (65-105)
[2023-10-11] MEDS: PERFLUTREN LIPID MICROSPHERES 1.5 ML VIAL DILUTED TO 10 ML TOTAL VOLUME IV PUSH (13:40)
--- NOTE | 2023-10-11 15:46 | IVDEFINITY ---
Prior to administration of IV Definity the patient was educated on the risks and benefits of the imaging enhancing agent including potential adverse side effects. The patient verbalized understanding. Allergies were verified. No exclusion criteria were identified and at least one of the following inclusion criteria were met: 1) physician request, 2) patient technically difficult to image (per the [place] [employer]ocardi[employer] guidelines of two or more segments not discernable within the apical view), or 3) questionable left ventricular function. ?
[2023-10-11 16:54] LABS: Glucose Point of Care 117 mg/dl (65-105)
--- NOTE | 2023-10-11 18:32 | PM.IMPN ---
Progress Note: A&P Assessment and Plan (1) NSTEMI (non-ST elevated myocardial infarction): Code(s): I21.4 - Non-ST elevation (NSTEMI) myocardial infarction Status: Acute (2) DKA (diabetic ketoacidosis): Code(s): E11.10 - Type 2 diabetes mellitus with ketoacidosis without coma Status: Acute (3) Acute hypoxemic respiratory failure: Code(s): J96.01 - Acute respiratory failure with hypoxia Status: Acute Plan Continue to attempt to wean oxygen. Will discuss with Nephrology attempt to pursue increased fluid removal. Cardiac catheterization on Monday. Now in normal sinus rhythm continue telemetry. Full code Subjective Date/time seen: 10/11/23 18:32 Interval history: No acute overnight event Review of Systems Review of Systems: All systems reviewed & are unremarkable except as noted in HPI and below (Subjective) Exam Const: General: comfortable and no acute distress Eyes: Pupils: Equal, round and reactive pupils present Neck: Neck: supple Resp: Effort & Inspection: normal respiratory effort Auscultation: crackles Cardio: Rate: regular rate Rhythm: regular rhythm GI: GI Palp: Yes Soft to palpation and No Tenderness to palpation present (GI) Extrem: General: edema Objective Data Vital Signs Vital Signs: Vital Signs - 24 hr 10/10/23 19:38 10/10/23 19:52 10/10/23 20:00 Temperature 98.2 F Pulse Rate 78 77 77 Respiratory Rate 19 20 Blood Pressure 110/65 132/74 Pulse Oximetry 90 Oxygen Delivery Room Air Oxygen Flow Rate Fraction of Inspired Oxygen 10/10/23 22:00 10/10/23 22:00 10/10/23 20:15 Temperature 98.8 F Pulse Rate 69 69 73 Respiratory Rate 21 H 22 H Blood Pressure 116/70 Pulse Oximetry 95 95 Oxygen Delivery CPAP Oxygen Flow Rate Fraction of Inspired Oxygen 10/10/23 23:42 10/10/23 20:00 10/11/23 00:00 Temperature Pulse Rate 65 74 64 Respiratory Rate 21 H Blood Pressure Pulse Oximetry 98 Oxygen Delivery CPAP Oxygen Flow Rate Fraction of Inspired Oxygen 10/10/23 20:00 10/11/23 00:00 10/11/23 00:00 Temperature 97.9 F Pulse Rate 64 Respiratory Rate 22 H Blood Pressure 112/82 Pulse Oximetry 98 98 97 Oxygen Delivery CPAP CPAP Oxygen Flow Rate Fraction of Inspired Oxygen 70 70 10/11/23 02:00 10/11/23 03:02 10/11/23 04:00 Temperature Pulse Rate 58 L 58 L Respiratory Rate 20 Blood Pressure Pulse Oximetry 98 98 Oxygen Delivery CPAP CPAP Oxygen Flow Rate Fraction of Inspired Oxygen 70 10/11/23 04:00 10/11/23 04:00 10/11/23 06:00 Temperature 98.8 F Pulse Rate 57 L 57 L 55 L Respiratory Rate 18 Blood Pressure 111/67 Pulse Oximetry 97 Oxygen Delivery Oxygen Flow Rate Fraction of Inspired Oxygen 10/11/23 08:27 10/11/23 08:00 10/11/23 08:00 Temperature Pulse Rate 62 61 Respiratory Rate Blood Pressure Pulse Oximetry 91 Oxygen Delivery Nasal Cannula Oxygen Flow Rate 4 Fraction of Inspired Oxygen 10/11/23 08:00 10/11/23 08:00 10/11/23 10:00 Temperature 98.7 F Pulse Rate 61 62 57 L Respiratory Rate 12 14 Blood Pressure 118/61 110/65 Pulse Oximetry 92 Oxygen Delivery Oxygen Flow Rate Fraction of Inspired Oxygen 10/11/23 12:00 10/11/23 12:00 10/11/23 12:00 Temperature Pulse Rate 72 72 Respiratory Rate 18 Blood Pressure 122/66 Pulse Oximetry 95 95 Oxygen Delivery Nasal Cannula Oxygen Flow Rate 4 Fraction of Inspired Oxygen 10/11/23 14:00 10/11/23 16:00 10/11/23 16:00 Temperature Pulse Rate 67 67 Respiratory Rate Blood Pressure Pulse Oximetry 95 Oxygen Delivery Nasal Cannula Oxygen Flow Rate 4 Fraction of Inspired Oxygen 10/11/23 16:00 10/11/23 18:00 Temperature 98.4 F Pulse Rate 67 70 Respiratory Rate 13 Blood Pressure 118/84 Pulse Oximetry 95 Oxygen Delivery Oxygen Flow Rate Fraction of Inspired Oxygen Intake/Ou
[2023-10-11 19:31] LABS: Partial Thromboplastin Time 49.1 SECONDS (22.3-36.8)
[2023-10-11 19:33] LABS: Influenza A QL RT-PCR Negative (Negative); Influenza B QL RT-PCR Negative (Negative); RSV RNA, RT-PCR Negative (Negative); SARS-CoV-2 RNA PCR Negative (Negative)
[2023-10-11] MEDS: HEPARIN SODIUM 5,000 UNITS/ML VIAL 4000 UNITS IV PUSH (19:54)
[2023-10-11] MEDS: ATORVASTATIN 40 MG TABLET 80 MG PO (20:38)
[2023-10-11] MEDS: FEBUXOSTAT 40 MG TABLET PO (20:38)
[2023-10-11 20:46] LABS: Glucose Point of Care 125 mg/dl (65-105)
[2023-10-12] VITALS (16 sets, daily range): BP systolic 120–146; BP diastolic 64–91; PULSE 56–74; RESP 12–22; TEMP 36.1–37; O2SAT 93–98
[2023-10-12 02:08] LABS: Basophils Percent Auto 0.8 % (0.2-1.2); Eosinophils Absolute Auto 0.2 K/mm3 (0-0.3); Eosinophils Percent Auto 3.9 % (0-4.4); Hematocrit 27.6 % (42.0-52.0); Hemoglobin 9.2 g/dL (14.0-18.0); Immature Granulocyte Absolute 0.03 K/mm3 (0.00-0.031); Immature Granulocyte Percent A 0.8 % (0-0.5); Lymphocytes Absolute Auto 1.42 K/mm3 (0.9-3.2); Lymphocytes Percent Auto 37.4 % (18.3-44.2); Mean Corpuscular HGB Conc 33.3 g/dl (32-36); Mean Corpuscular Hemoglobin 29.8 pg (26-34); Mean Corpuscular Volume 89.3 fl (80-100); Mean Platelet Volume 10.3 fl (7.4-10.4); Monocytes Absolute Auto 0.5 K/mm3 (0.1-0.6); Monocytes Percent Auto 13.7 % (2.6-8.5); Neutrophils Absolute Auto 1.7 K/mm3 (1.3-6.7); Neutrophils Percent Auto 43.4 % (45.5-73.1); Platelet Count Result 277 k/mm3 (150-375); Red Blood Count 3.09 M/mm3 (4.6-6.20); Red Cell Distribution Width 13.6 % (11.5-14.5); White Blood Count 3.8 K/mm3 (4.5-10.0)
[2023-10-12 02:19] LABS: Alanine Aminotransferase 20 U/L (6-50); Albumin Level 3.3 g/dL (3.5-5.1); Alkaline Phosphatase 97 U/L (38-126); Anion Gap 14 mmol/L (8-16); Aspartate Amino Transferase 29 U/L (17-59); Bilirubin,Total 0.5 mg/dL (0.2-1.3); Blood Urea Nitrogen 70 mg/dL (9-20); Calcium 8.5 mg/dL (8.4-10.2); Carbon Dioxide 23 mmol/L (22-30); Chloride 93 mmol/L (98-107); Estimated CRCL calculation 9 ml/min; Estimated Glomerular Filt Rate 5; Glucose 233 mg/dL (65-110); Magnesium 2.2 mg/dL (1.6-2.3); Potassium 3.9 mmol/L (3.4-5.0); Sodium 130 mmol/L (137-145)
[2023-10-12 02:21] LABS: Partial Thromboplastin Time 106.2 SECONDS (22.3-36.8)
[2023-10-12 04:19] LABS: Glucose Point of Care 243 mg/dl (65-105)
[2023-10-12] MEDS: gemfibroziL 600 MG TABLET PO ×2 (05:40→16:08)
[2023-10-12] MEDS: LINACLOTIDE 72 MCG CAPSULE PO (05:40)
[2023-10-12 07:25] LABS: Glucose Point of Care 295 mg/dl (65-105)
[2023-10-12] MEDS: FUROSEMIDE INJ 100 MG/10 ML VIAL 80 MG IV PUSH ×2 (08:04→16:07)
[2023-10-12] MEDS: EZETIMIBE 10 MG TABLET PO (08:04)
[2023-10-12] MEDS: ASPIRIN 81 MG ENTERIC TABLET PO (08:04)
[2023-10-12] MEDS: calcitrioL 0.25 MCG CAPSULE PO (08:04)
[2023-10-12] MEDS: CLOPIDOGREL BISULFATE 75 MG TABLET PO (08:04)
[2023-10-12] MEDS: FAMOTIDINE 20 MG TABLET PO ×2 (08:04→21:25)
[2023-10-12] MEDS: LORATADINE 10 MG TABLET PO (08:04)
[2023-10-12] MEDS: CALCIUM ACETATE 667 MG TABLET PO ×3 (08:04→16:08)
[2023-10-12] MEDS: OMEGA 3 POLYUNSAT FATTY ACIDS 1 GM CAP 2 GM PO ×2 (08:04→16:08)
[2023-10-12] MEDS: RANOLAZINE 500 MG TAB.ER.12H PO ×2 (08:04→21:24)
[2023-10-12] MEDS: METOPROLOL SUCCINATE EXT REL 50 MG TABCR PO (08:04)
[2023-10-12] MEDS: ISOSORBIDE MONONITRATE 60 MG TAB.ER.24H PO (08:04)
--- NOTE | 2023-10-12 08:04 | PM.IMPN ---
Progress Note: A&P Assessment and Plan (1) Acute hypoxemic respiratory failure: Code(s): J96.01 - Acute respiratory failure with hypoxia Status: Acute (2) Type 1 diabetes mellitus: Code(s): E10.9 - Type 1 diabetes mellitus without complications Status: Acute (3) DKA (diabetic ketoacidosis): Code(s): E11.10 - Type 2 diabetes mellitus with ketoacidosis without coma Status: Acute (4) NSTEMI (non-ST elevated myocardial infarction): Code(s): I21.4 - Non-ST elevation (NSTEMI) myocardial infarction Status: Acute (5) Obstructive sleep apnea: Code(s): G47.33 - Obstructive sleep apnea (adult) (pediatric) Status: Chronic (6) Anemia in chronic kidney disease: Code(s): N18.9 - Chronic kidney disease, unspecified; D63.1 - Anemia in chronic kidney disease Status: Chronic (7) Congestive heart failure: Qualifiers: Heart failure chronicity: acute on chronic Heart failure type: unspecified Qualified Code(s): I50.9 - Heart failure, unspecified Code(s): I50.9 - Heart failure, unspecified Status: Acute (8) Coronary artery disease: Qualifiers: Coronary Disease-Associated Artery/Lesion type: [place] artery [place] vs. transplanted heart: [place] heart Associated angina: with stable angina Qualified Code(s): I25.118 - Atherosclerotic heart disease of [place] coronary artery with other forms of angina pectoris Code(s): I25.10 - Atherosclerotic heart disease of [place] coronary artery without angina pectoris Status: Chronic (9) End-stage renal disease on peritoneal dialysis: Code(s): N18.6 - End stage renal disease; Z99.2 - Dependence on renal dialysis Status: Acute (10) Essential hypertension: Code(s): I10 - Essential (primary) hypertension Status: Chronic (11) Hyponatremia: Code(s): E87.1 - Hypo-osmolality and hyponatremia Status: Acute (12) Obesity: Qualifiers: Obesity classification: adult class 3 (BMI >= 40) Obesity type: unspecified obesity type Serious obesity comorbidity presence: with serious comorbidity Code(s): E66.9 - Obesity, unspecified Status: Acute (13) Paroxysmal atrial fibrillation: Code(s): I48.0 - Paroxysmal atrial fibrillation Status: Acute Plan 53-year-old male with history of type 1 diabetes mellitus, diabetic neuropathy, complex coronary artery disease status post stenting (primary cardiology Dr. Ortega at [facility]), hyperlipidemia, hypertension, ESRD on peritoneal dialysis, GERD, systolic heart failure (EF 20-25% 10/11/23), BEN noncompliant with CPAP presented with nausea and shortness of breath. Believes his insulin pump has been malfunctioning. Admitted on 10/09/2023 for DKA and acute hypoxic respiratory failure. #diabetes mellitus type 1/DKA -patient believes is Omnipod has been malfunctioning. he is attempting to call for a new one. He typically does well at 1.8 units/hour from 8:00 a.m. to 8:00 p.m. and 6.5 units/hour from 8:00 p.m. to 8:00 a.m. -NPO at midnight for cardiac catheterization tomorrow. We will continue long-acting but stop the short-acting at midnight and readjust tomorrow to match the dosing as above. -continue Accu-Cheks a.c. HS with sliding scale and hypoglycemia protocol -DKA resolved. #acute hypoxic respiratory failure -patient has been noncompliant with CPAP at night. PCO2 36.8 on this admission. COVID flu RSV PCR negative -likely related to ESRD and decompensated heart failure. -no symptomatology/signs consistent with infectious process. Left lower lobe with possible atelectasis. Continue IS. Continue to monitor. -continue to wean as tolerated. #systolic heart failure -decompensated -patient barely makes any urine. Fluid removal via peritoneal dialysis. Hopefully we can have more removed as blood pressure tolerates -continue Lasix 80 mg IV b.i.d. per Nephrology. Isosorbid
[2023-10-12] MEDS: INSULIN GLARGINE (*BKC) 100 UNITS/ML 45 UNITS SUB-Q (08:06)
[2023-10-12] MEDS: cycloSPORINE 0.4 ML OPHTH SOLUTION 1 DROP EACH EYE ×2 (08:06→16:08)
[2023-10-12] MEDS: INSULIN ASPART (*BKC) 100 UNITS/ML SUB-Q (08:07)
[2023-10-12] MEDS: INSULIN ASPART (*BKC) 100 UNITS/ML 10 UNITS SUB-Q ×2 (08:07→11:49)
[2023-10-12] MEDS: HEPARIN SOD/D5W 100 UNITS/ML 25,000 UNITS/250 ML BAG 12 UNITS IV CONT (08:08)
[2023-10-12 09:12] LABS: Partial Thromboplastin Time 59.8 SECONDS (22.3-36.8)
[2023-10-12] MEDS: HEPARIN SODIUM 5,000 UNITS/ML VIAL 3500 UNITS IV PUSH ×2 (09:25→22:43)
[2023-10-12 10:16] LABS: Hepatitis B Surface Antigen Negative (Negative)
[2023-10-12 10:32] LABS: Hepatitis B Surface Anti Res Positive
[2023-10-12 12:01] LABS: Glucose Point of Care 183 mg/dl (65-105)
[2023-10-12 15:43] LABS: Partial Thromboplastin Time 73.5 SECONDS (22.3-36.8)
[2023-10-12 16:13] LABS: Glucose Point of Care 64 mg/dl (65-105)
--- NOTE | 2023-10-12 16:41 | PM.PNCARD ---
Progress Note: A&P Assessment and Plan (1) NSTEMI (non-ST elevated myocardial infarction): Code(s): I21.4 - Non-ST elevation (NSTEMI) myocardial infarction Status: Acute Assessment and Plan: Admitted on 10/09 for DKA. On evening of 10/10, he had an episode of substernal chest pressure with radiation to his left arm that lasted for about 30 minutes. Patient reports that he does get occasional chest pressure at home, but feels like it has been increasing in frequency lately. Occurs couple times a week. He is currently chest pain free. Troponins were checked and were found to be elevated at 5.66, 5.74, 6.06. Troponin peaked at 6.120. Troponin levels in July 2023 were 0.679 and 0.666. Last echocardiogram in July 2023 showed LVEF 40-45%. Repeat echocardiogram this admission shows LVEF 20-25%, moderate ASA, mild AR, moderate MR, mild TR, pulmonary HTN. Started ASA 81mg once daily, continue Plavix 75mg once daily. Eliquis is now placed on hold, however, he did receive a dose on evening of 10/10.? Will need cardiac catheterization given report of progressive anginal symptoms, significantly higher troponin levels compared to his baseline, worsening LVEF. However, will need a 48 hour washout period from Eliquis. Therefore, cath would be done on Friday 10/13. In addition, he does have a contrast allergy listed, therefore, will give him premedication starting on evening of 10/12. If patient does need PCI, he will need to be transferred to a tertiary center as he is high risk to undergo intervention at this institution. (2) Congestive heart failure: Qualifiers: Heart failure chronicity: acute on chronic Heart failure type: unspecified Qualified Code(s): I50.9 - Heart failure, unspecified Code(s): I50.9 - Heart failure, unspecified Status: Acute Assessment and Plan: Last echocardiogram in July 2023 showed LVEF 40-45%. Repeat echocardiogram this admission shows LVEF 20-25%, moderate ASA, mild AR, moderate MR, mild TR, pulmonary HTN. Will plan to start Entresto after cardiac cath. Not a candidate for SGLT2 inhibitor or Spironolactone. Continue Toprol. Discussed Life Vest with the patient, he is agreeable - order placed. (3) Coronary artery disease: Qualifiers: Coronary Disease-Associated Artery/Lesion type: [place] artery [place] vs. transplanted heart: [place] heart Associated angina: with stable angina Qualified Code(s): I25.118 - Atherosclerotic heart disease of [place] coronary artery with other forms of angina pectoris Code(s): I25.10 - Atherosclerotic heart disease of [place] coronary artery without angina pectoris Status: Chronic Assessment and Plan: Has known complex coronary artery disease. Started ASA as noted above. Continue Plavix, statin, Ranolazine, Metoprolol. Increased his Imdur to 60mg. (4) DKA (diabetic ketoacidosis): Code(s): E11.10 - Type 2 diabetes mellitus with ketoacidosis without coma Status: Acute Assessment and Plan: Resolved. No longer under ICU care now. Management of diabetes as per primary team. (5) Paroxysmal atrial fibrillation: Code(s): I48.0 - Paroxysmal atrial fibrillation Status: Acute Assessment and Plan: Continue Metoprolol. Eliquis on hold in anticipation of cardiac cath. (6) End-stage renal disease on peritoneal dialysis: Code(s): N18.6 - End stage renal disease; Z99.2 - Dependence on renal dialysis Status: Acute Assessment and Plan: Nephrology has been consulted. (7) Hyperlipidemia: Qualifiers: Hyperlipidemia type: unspecified Qualified Code(s): E78.5 - Hyperlipidemia, unspecified Code(s): E78.5 - Hyperlipidemia, unspecified Status: Chronic Assessment and Plan: Continue statin, Zetia, Gemfibrozil. Subjective Date/time seen: 10/12/23 16:41 Interval history: Reason for visit: NSTEMI HPI: We are consulted for chest pain and eleva
--- NOTE | 2023-10-12 16:42 | PC.NURSE ---
This patient, Juvenal Daigle Jr., was transferred to [[id number] ] on 10/12/23 at 1630. Personal belongings sent with patient. Report given to [ LUAN Flowers @ 3130]. Appropriate documentation sent with patient.
--- NOTE | 2023-10-12 16:48 | PC.NURSE ---
Dr. Hall notified of patient's decrease blood glucose. New order to d/c NovoLog now and not at .
[2023-10-12 17:19] LABS: Glucose Point of Care 74 mg/dl (65-105)
[2023-10-12 20:14] LABS: Glucose Point of Care 186 mg/dl (65-105)
[2023-10-12] MEDS: predniSONE 40 MG, predniSONE 10 MG 50 MG PO (21:23)
[2023-10-12] MEDS: FEBUXOSTAT 40 MG TABLET PO (21:24)
[2023-10-12] MEDS: ATORVASTATIN 40 MG TABLET 80 MG PO (21:25)
[2023-10-12 22:14] LABS: Partial Thromboplastin Time 66.8 SECONDS (22.3-36.8)
[2023-10-13] VITALS (29 sets, daily range): BP systolic 120–149; BP diastolic 60–109; PULSE 58–80; RESP 12–20; TEMP 36.6–37; O2SAT 93–100
[2023-10-13] MEDS: HEPARIN SOD/D5W 100 UNITS/ML 25,000 UNITS/250 ML BAG 16 UNITS IV CONT ×2 (00:42→19:38)
[2023-10-13 02:40] LABS: Glucose Point of Care 68 mg/dl (65-105)
[2023-10-13] MEDS: predniSONE 40 MG, predniSONE 10 MG 50 MG PO ×2 (03:41→09:10)
[2023-10-13 04:36] LABS: Hematocrit 31.1 % (42.0-52.0); Hemoglobin 10.3 g/dL (14.0-18.0); Mean Corpuscular HGB Conc 33.1 g/dl (32-36); Mean Corpuscular Hemoglobin 29.7 pg (26-34); Mean Corpuscular Volume 89.6 fl (80-100); Mean Platelet Volume 10.2 fl (7.4-10.4); Platelet Count Result 329 k/mm3 (150-375); Red Blood Count 3.47 M/mm3 (4.6-6.20); Red Cell Distribution Width 13.8 % (11.5-14.5); White Blood Count 3.4 K/mm3 (4.5-10.0)
[2023-10-13 04:49] LABS: Partial Thromboplastin Time 104.2 SECONDS (22.3-36.8)
[2023-10-13 05:02] LABS: Alanine Aminotransferase 19 U/L (6-50); Albumin Level 3.6 g/dL (3.5-5.1); Alkaline Phosphatase 117 U/L (38-126); Anion Gap 12 mmol/L (8-16); Aspartate Amino Transferase 28 U/L (17-59); Bilirubin,Total 0.6 mg/dL (0.2-1.3); Blood Urea Nitrogen 67 mg/dL (9-20); Carbon Dioxide 23 mmol/L (22-30); Chloride 96 mmol/L (98-107); Estimated CRCL calculation 10 ml/min; Estimated Glomerular Filt Rate 5; Glucose 337 mg/dL (65-110); Magnesium 2.1 mg/dL (1.6-2.3); Potassium 4.3 mmol/L (3.4-5.0); Sodium 131 mmol/L (137-145)
[2023-10-13 07:35] LABS: Glucose Point of Care 418 mg/dl (65-105)
--- NOTE | 2023-10-13 08:47 | PM.IMPN ---
Progress Note: A&P Assessment and Plan (1) Acute hypoxemic respiratory failure: Code(s): J96.01 - Acute respiratory failure with hypoxia Status: Acute (2) Type 1 diabetes mellitus: Code(s): E10.9 - Type 1 diabetes mellitus without complications Status: Acute (3) DKA (diabetic ketoacidosis): Code(s): E11.10 - Type 2 diabetes mellitus with ketoacidosis without coma Status: Acute (4) NSTEMI (non-ST elevated myocardial infarction): Code(s): I21.4 - Non-ST elevation (NSTEMI) myocardial infarction Status: Acute (5) Obstructive sleep apnea: Code(s): G47.33 - Obstructive sleep apnea (adult) (pediatric) Status: Chronic (6) Anemia in chronic kidney disease: Code(s): N18.9 - Chronic kidney disease, unspecified; D63.1 - Anemia in chronic kidney disease Status: Chronic (7) Congestive heart failure: Qualifiers: Heart failure chronicity: acute on chronic Heart failure type: unspecified Qualified Code(s): I50.9 - Heart failure, unspecified Code(s): I50.9 - Heart failure, unspecified Status: Acute (8) Coronary artery disease: Qualifiers: Coronary Disease-Associated Artery/Lesion type: [place] artery [place] vs. transplanted heart: [place] heart Associated angina: with stable angina Qualified Code(s): I25.118 - Atherosclerotic heart disease of [place] coronary artery with other forms of angina pectoris Code(s): I25.10 - Atherosclerotic heart disease of [place] coronary artery without angina pectoris Status: Chronic (9) End-stage renal disease on peritoneal dialysis: Code(s): N18.6 - End stage renal disease; Z99.2 - Dependence on renal dialysis Status: Acute (10) Essential hypertension: Code(s): I10 - Essential (primary) hypertension Status: Chronic (11) Hyponatremia: Code(s): E87.1 - Hypo-osmolality and hyponatremia Status: Acute (12) Obesity: Qualifiers: Obesity classification: adult class 3 (BMI >= 40) Obesity type: unspecified obesity type Serious obesity comorbidity presence: with serious comorbidity Code(s): E66.9 - Obesity, unspecified Status: Acute (13) Paroxysmal atrial fibrillation: Code(s): I48.0 - Paroxysmal atrial fibrillation Status: Acute Plan 53-year-old male with history of type 1 diabetes mellitus, diabetic neuropathy, complex coronary artery disease status post stenting (primary cardiology Dr. Ortega at [facility]), hyperlipidemia, hypertension, ESRD on peritoneal dialysis, GERD, systolic heart failure (EF 20-25% 10/11/23), BEN noncompliant with CPAP presented with nausea and shortness of breath. Believes his insulin pump has been malfunctioning. Admitted on 10/09/2023 for DKA and acute hypoxic respiratory failure. #diabetes mellitus type 1/DKA -patient believes is Omnipod has been malfunctioning. he is attempting to call for a new one. He typically does well at 1.8 units/hour from 8:00 a.m. to 8:00 p.m. and 6.5 units/hour from 8:00 p.m. to 8:00 a.m. -continue Accu-Cheks a.c. HS with sliding scale and hypoglycemia protocol -DKA resolved. -currently NPO for cardiac catheterization. Morning blood sugar 400. Lantus being administered. Restart mealtime dosing as soon as the cardiac catheterization is done and he is eating. #acute hypoxic respiratory failure -patient has been noncompliant with CPAP at night. PCO2 36.8 on this admission. COVID flu RSV PCR negative -likely related to ESRD and decompensated heart failure. -no symptomatology/signs consistent with infectious process. Left lower lobe with possible atelectasis. Continue IS. Continue to monitor. -on room air on 10/13/2023, resolved. Likely was achieved by fluid takeoff from peritoneal dialysis to compensate for his now lower EF. #systolic heart failure -decompensated. Compensated on 10/13/2023 -surface echo on 07/26/2023 demonstrating EF of 40
[2023-10-13] MEDS: RANOLAZINE 500 MG TAB.ER.12H PO ×2 (09:04→20:15)
[2023-10-13] MEDS: CALCIUM ACETATE 667 MG TABLET PO ×2 (09:04→16:52)
[2023-10-13] MEDS: EZETIMIBE 10 MG TABLET PO (09:04)
[2023-10-13] MEDS: INSULIN GLARGINE (*BKC) 100 UNITS/ML 45 UNITS SUB-Q (09:05)
[2023-10-13] MEDS: LORATADINE 10 MG TABLET PO (09:05)
[2023-10-13] MEDS: CLOPIDOGREL BISULFATE 75 MG TABLET PO (09:05)
[2023-10-13] MEDS: FAMOTIDINE 20 MG TABLET PO ×2 (09:05→20:15)
[2023-10-13] MEDS: OMEGA 3 POLYUNSAT FATTY ACIDS 1 GM CAP 2 GM PO ×2 (09:05→16:52)
[2023-10-13] MEDS: cycloSPORINE 0.4 ML OPHTH SOLUTION 1 DROP EACH EYE ×2 (09:10→16:52)
[2023-10-13] MEDS: COLCHICINE 0.6 MG TABLET PO (09:10)
[2023-10-13] MEDS: diphenhydrAMINE HCl CAP 25 MG CAPSULE 50 MG PO (09:10)
[2023-10-13] MEDS: ISOSORBIDE MONONITRATE 60 MG TAB.ER.24H PO (09:43)
[2023-10-13] MEDS: calcitrioL 0.25 MCG CAPSULE PO (09:44)
[2023-10-13] MEDS: ASPIRIN 81 MG ENTERIC TABLET PO (09:44)
[2023-10-13] MEDS: METOPROLOL SUCCINATE EXT REL 50 MG TABCR PO (09:44)
--- NOTE | 2023-10-13 10:11 | WPDMODSED ---
Moderate Sedation Note-Pt Data Patient Data Diagnosis: elevated troponin diabetic ketoacidosis end-stage renal disease on dialysis coronary artery disease with previous PCI Present Complaint: none Procedure to be performed/Plan: coronary angiography Allergies Allergy/AdvReac Type Severity Reaction Status Date / Time allopurinol Allergy Severe Other Verified 07/25/23 17:08 iohexol Allergy Severe Difficulty Verified 07/25/23 17:08 [From CONTRAST - CT, XRAY] Breathing ticagrelor Allergy Intermediate Rash Verified 07/25/23 17:08 Home Medications Medication Instructions Recorded Confirmed Type calcitriol 0.25 mcg capsule 0.25 mcg PO QAM 06/04/19 10/09/23 History clopidogrel 75 mg tablet 75 mg PO DAILY 06/04/19 10/09/23 History ergocalciferol (vitamin D2) 1,250 50,000 unit PO WEEKLY 06/04/19 10/09/23 History mcg (50,000 unit) capsule (Vitamin D2) nitroglycerin 0.4 mg sublingual 0.4 mg sublingual Q5-15M PRN Chest 06/04/19 10/09/23 History tablet Pain ezetimibe 10 mg tablet (Zetia) 10 mg PO DAILY 09/09/19 10/09/23 History isosorbide mononitrate 30 mg 30 mg PO DAILY 09/09/19 10/09/23 History tablet,extended release 24 hr ranolazine 500 mg tablet,extended 500 mg PO Q12H 09/24/19 10/09/23 History release,12 hr (Ranexa) cetirizine 10 mg tablet (All Day 10 mg PO DAILY 12/26/19 10/09/23 History Allergy (cetirizine)) furosemide 80 mg tablet (Lasix) 120 mg PO BID 02/02/20 10/09/23 History famotidine 40 mg tablet 40 mg PO HS 03/31/20 10/09/23 History atorvastatin 80 mg tablet 80 mg PO HS 11/26/20 10/09/23 History colchicine 0.6 mg tablet (Colcrys) 0.6 mg PO QMWF 11/26/20 10/09/23 History icosapent ethyl 1 gram capsule 2 g PO BID 06/02/22 10/09/23 History (Vascepa) albuterol sulfate 90 mcg/actuation 1 inh inhalation QID PRN shortness 01/12/23 10/09/23 Rx aerosol inhaler (ProAir HFA) of breath or wheezing #8.5 grams apixaban 2.5 mg tablet (Eliquis) 2.5 mg PO BID #180 tabs 03/22/23 10/09/23 Rx metoprolol succinate 50 mg 50 mg PO DAILY 05/20/23 10/09/23 History tablet,extended release 24 hr nifedipine 90 mg tablet,extended 90 mg PO HS 05/20/23 10/09/23 History release 24 hr potassium chloride 20 mEq 20 meq PO DAILY 05/20/23 10/09/23 History tablet,extended release insulin lispro 100 unit/mL See Rx Instructions .Route .COMPLEX 05/31/23 10/09/23 History subcutaneous solution (Humalog U-100 Insulin) cyclosporine 0.05 % eye drops in a 1 drp EACH EYE BID 07/25/23 10/09/23 History dropperette (Restasis) febuxostat 40 mg tablet 40 mg PO HS 07/25/23 10/09/23 History gemfibrozil 600 mg tablet 600 mg PO BID 07/25/23 10/09/23 History insulin aspart U-100 100 unit/mL See Rx Instructions .Route .COMPLEX 07/25/23 10/09/23 History subcutaneous solution (Novolog U-100 Insulin aspart) linaclotide 72 mcg capsule 72 mcg PO DAILY 07/25/23 10/09/23 History (Linzess) losartan 25 mg tablet 12.5 mg PO HS 07/25/23 10/09/23 History glucagon 1 mg/0.2 mL subcutaneous See Rx Instructions .Route 10/03/23 10/09/23 Rx auto-injector (Gvoke HypoPen .COMPLEX #0.4 mL 2-Pack) calcium acetate(phosphat bind) 667 667 mg PO QID 10/09/23 10/09/23 History mg capsule omeprazole 20 mg capsule,delayed 20 mg PO DAILY 10/09/23 10/09/23 History release Current Medications: Active Medications Acetaminophen (Acetaminophen 325 Mg Tablet) 650 mg PO Q4H PRN PRN Reason: Headache, fever, pain Albuterol (Albuterol Sulfate (*Sp) Aerosol 1 Puff) 1 puff INHALATION QID PRN PRN Reason: shortness of breath or wheezing Apixaban (Apixaban 2.5 Mg Tablet) 2.5 mg PO BID [facility] Last Admin: 10/10/23 16:30 Dose: 2.5 mg Aspirin (Aspirin 81 Mg Enteric Tablet) 81 mg PO [facility] Last Admin: 10/13/23 09:44 Dose: 81 mg Atorvastatin Calcium (Atorvastatin 40 Mg Tablet) 80 mg PO [facility] Last Admin: 10/12/23 21:25 Dose: 80 mg Calcitriol (Calcitriol 0.25 Mcg Capsule) 0.25 mcg PO [facility] Last Admin: 10/13/23 09:44 Dos
--- NOTE | 2023-10-13 11:13 | WPDCARDPROC ---
Cardiac Cath Procedure Note Date of procedure:: 10/13/23 Performing physician:: Abelardo Petit MD Indication:: elevated troponin known history of coronary artery disease with previous PCI diabetes end-stage renal disease on renal replacement therapy diabetic ketoacidosis because of malfunctioning insulin pump Brief clinical history:: this is a 53-year-old man who is seen at this hospital multiple times but receives his cardiology follow-up elsewhere. He came to this hospital again this time because of severe hyperglycemia and malfunctioning of his insulin pump. In this setting troponin levels were sampled and was found to be rather high. Troponins are elevated higher than what would normally be attributed to renal failure. He is not having any ischemic symptoms and in this setting a follow-up angiogram has been recommended. Previous charts indicate evidence of significant aortic valve stenosis as well and poor left ventricular ejection fraction. Procedure Procedure performed:: Coronary angiography Sedation/Medication given:: fentanyl 50 mg Versed 2 mg case start time 10:50 a.m. case end time 11:10 a.m. sedation provided by Sasha Barnard RN, trained observer Access site:: right femoral artery Estimated blood loss:: 25 cc Procedure note:: patient was brought to the cardiac catheterization lab in the postabsorptive state where the right femoral triangle was prepared and draped in the usual fashion. Anesthesia was provided with 1% lidocaine infiltrated locally. Using technique a 5 [place] vascular sheath was placed into the right femoral artery I then used a 5 [place] FL 3.5 catheter to engage and inject the left coronary artery in multiple projections. I then used a 5 [place] JR4 catheter to engage and inject the right coronary artery in orthogonal projections. Cineangiograms were reviewed and the case was terminated. Patient was taken holding area for manual sheath removal. There was no evidence of groin hematoma upon his departure from the cardiac catheterization lab. Findings:: Hemodynamics: Central aortic pressure is 1 36 over 76, the left ventricle was not entered during this procedure the left main coronary artery is short and medium in caliber. There is a hazy appearance to the left main but there are no high-grade lesions identified. The left anterior descending is a medium caliber artery extending down to the apex. There is mild diffuse disease in the ostium of the LAD there is a high-grade lesion of approximately 90% at the origin of a very small high diagonal branch. The remainder of the LAD is mildly diseased. The circumflex is a moderate to large caliber artery which has stent material from the ostium down to the 1st OM and in the then into the posterior circumflex branch as well there was this is a bifurcation stent that was done May of 2022. There is 99% ostial circumflex stenosis recurrent Zara and there is also 90% stenosis at the bifurcation of the circ mid circumflex and the OM branch the branch portion of the stented area. There was VIPUL 3 flow in the circumflex despite these high-grade lesions. The right coronary artery is medium in caliber and dominant to the posterior circulation the right coronary has visible stent material in the 2nd portion of the artery. In the beginning of this segment there is discrete 99% stenosis which was not seen angiographically in May of 2022 with the stented area was patent. Conclusion:: 1. Right coronary dominant circulation with severe multivessel coronary disease including 90% proximal LAD stenosis, 99% ostial circumflex stenosis followed by 90% stenosis at the bifurcation of the circumflex trunk with the OM branch. This was stented in May of 2022. 99% stenosis in the mid right coronary artery that was stented in remote past this represents significant progressive disease compared to May of 2022. 2. Patient is known on
[2023-10-13] MEDS: SODIUM CHLORIDE 0.9% IV 1,000 ML 125 ML IV CONT (13:35)
[2023-10-13] MEDS: INSULIN ASPART (*BKC) 100 UNITS/ML SUB-Q ×2 (14:04→16:53)
[2023-10-13 14:23] LABS: Partial Thromboplastin Time 33.8 SECONDS (22.3-36.8)
[2023-10-13] MEDS: gemfibroziL 600 MG TABLET PO (16:10)
[2023-10-13 16:40] LABS: Glucose Point of Care 398 mg/dl (65-105)
[2023-10-13 16:40] LABS: Glucose Point of Care > 500 mg/dl (65-105)
[2023-10-13] MEDS: FUROSEMIDE INJ 100 MG/10 ML VIAL 80 MG IV PUSH (16:52)
[2023-10-13] MEDS: INSULIN ASPART (*BKC) 100 UNITS/ML 12 UNITS SUB-Q (16:54)
--- NOTE | 2023-10-13 19:40 | PC.NURSE ---
Pt disconnected himself from PD for transfer to [facility], unable to obtain intake/output from machine.
--- NOTE | 2023-10-13 20:01 | PM.EVENT ---
Event Note Event Note Event Note: Cross Coverage: Patient's glucose 521. Currently on high corrective dose, 12 units of NovoLog t.i.d. with meals, 40 units of glargine subQ daily. 14 units of regular insulin subQ ordered. Recheck glucose in 1 hour or prior to transfer. Patient slotted to be transferred with EMS with ETA of 20:45. Bedside RN instructed to alert EMS staff to recent insulin administration.
[2023-10-13 20:03] LABS: Glucose Point of Care > 500 mg/dl (65-105)
[2023-10-13 20:04] LABS: Partial Thromboplastin Time 75.6 SECONDS (22.3-36.8)
[2023-10-13] MEDS: FEBUXOSTAT 40 MG TABLET PO (20:15)
[2023-10-13] MEDS: ATORVASTATIN 40 MG TABLET 80 MG PO (20:16)
[2023-10-13] MEDS: INSULIN HUMAN REGULAR (*BKC) 100 UNITS/ML 14 UNITS SUB-Q (20:17)
[2023-10-13 21:29] LABS: Glucose Point of Care > 500 mg/dl (65-105)
[2023-10-13] MEDS: INSULIN ASPART (*BKC) 100 UNITS/ML 6 UNITS SUB-Q (21:40)
[2023-10-13] MEDS: INSULIN HUMAN REGULAR (*BKC) 100 UNITS/ML 16 UNITS SUB-Q (22:11)
--- NOTE | 2023-10-13 22:33 | PC.NURSE ---
Receiving RN Brit at [facility] notified at 2154 of blood sugars of 521 and 551. Pt received 14 units of regular insulin at 2017 for the fsbs of 521 and an additional 6 units novolog at 2140 for 551. Receiving RN concerned about transfer of pt and requested additional orders. Dr Reed notified and ordered 16 units regular insulin subq. Pt is asymptomatic at this time. Dr Reed still ok to transfer pt. LUAN Perea notified of additional regular insulin ordered at 2204 and was more comfortable receiving pt. 16 units regular insulin subq given at 2204. Ambulance service is present for transfer and aware of glucose and insulin administration.
--- NOTE | 2023-10-16 16:12 | PM.TDS ---
Transfer Discharge Sum: Prov Provider Date of admission: 10/10/23 09:43 Primary care physician: Aditya Castro, Admitting clinician: Jamar Reed MD Attending physician on admission: Jamar Reed Consults: 10/09/23 Consult to Physician Routine Comment: Called Dr. Reyes office at 0902 regarding consult Consulting Provider: Leandro Reyes order desk caller/MD group to consult: Nephrology Reason for consultation: ESRD, peritoneal dialysis Has provider been notified: Yes 10/09/23 03:52 Consult to Physician Routine Comment: Consulting Provider: Cristhian Mi Reason for consultation: DKA Has provider been notified: Yes 10/09/23 04:51 Consult to Dietitian Routine Reason for Consult:: DKA admission 10/10/23 Consult to Physician Routine Comment: Consulting Provider: Nisha Akbar order desk caller/MD group to consult: cardiology Reason for consultation: chest pain, elevated troponin Has provider been notified: Yes 10/12/23 16:40 Care Coordination Consult Routine Comment: Reason for Consult:: LifeVest Attending physician on discharge: Leidy Hall Discharging clinician: Leidy Hall Anticipated date of transfer: 10/13/23 DS: Admitting Diagnosis Discharge Date 10/13/23 Admitting Diagnosis 53-year-old male with history of type 1 diabetes mellitus, diabetic neuropathy, complex coronary artery disease status post stenting (primary cardiology Dr. Ortega at [facility]), hyperlipidemia, hypertension, ESRD on peritoneal dialysis, GERD, systolic heart failure (EF 20-25% 10/11/23), BEN noncompliant with CPAP presented with nausea and shortness of breath.? Believes his insulin pump has been malfunctioning.? Admitted on 10/09/2023 for DKA and acute hypoxic respiratory failure. His DKA was treated per protocol and resolved. His acute hypoxic respiratory failure resolved with incentive spirometer and peritoneal dialysis. Decompensated heart failure treated with peritoneal dialysis and Lasix IV. His isosorbide mononitrate increased to 60 mg p.o. q.day. surface echo July 26, 2023 demonstrating EF of 40-45% and on 10/11/2023 down to 20-25%. Patient developed chest pressure and diagnosed with NSTEMI. Ultimately diagnostic cardiac catheterization performed demonstrating the from shell freezing machine operator Dr. Petit: 1.? ? Right coronary dominant circulation with severe multivessel coronary disease including 90% proximal LAD stenosis, 99% ostial circumflex stenosis followed by 90% stenosis at the bifurcation of the circumflex trunk with the OM branch.? This was stented in May of 2022.? 99% stenosis in the mid right coronary artery that was stented in remote past this represents significant progressive disease compared to May of 2022. 2.? ? Patient is known on previous charts to have significant aortic valve stenosis and low ejection fraction.? We did not cross the stenotic aortic valve is study left-sided hemodynamics during this procedure. 3.? ? In my opinion this patient require surgical revascularization his health counselor to [facility] elsewhere will be contacted to discuss referral to a cardiothoracic surgeon He was subsequently transferred to [facility] where cardiothoracic surgery consultation is available. He was full code during his admission. Transfer Discharge Sum: Med Medications Active and Home Medications: Home Medications calcitriol 0.25 mcg capsule 0.25 mcg PO QAM 06/04/19 [History Confirmed 10/09/23] clopidogrel 75 mg tablet 75 mg PO DAILY 06/04/19 [History Confirmed 10/09/23] ergocalciferol (vitamin D2) 1,250 mcg (50,000 unit) capsule (Vitamin D2) 50,000 unit PO WEEKLY 06/04/19 [History Confirmed 10/09/23] nitroglycerin 0.4 mg sublingual tablet 0.4 mg sublingual Q5-15M PRN Chest Pain 06/04/19 [History Confirmed 10/09/23] ezetimibe 10 mg tablet (Zetia) 10 mg PO DAILY 09/09/19 [History Confirmed 10/09/23] isosorbide mononitrate 30 mg tablet,extended relea
== END 2023-10-13 22:24 | disposition short-term general hospital (02) | DRG 637 ==
LOC: ANHED 01:49 → ANHICU 04:25 → ANHIMU 10-12 16:50
PROVIDERS: Internal Medicine; Internal Medicine Nephrology; Nurse Practitioner; Specialist; Admitting Provider Internal Medicine; Emergency Provider Emergency Medicine; PCP Family Medicine; Visit Provider General Practice
PROC: 4A023N7 Measurement of Cardiac Sampling and Pressure, Left Heart, Percutaneous Approach (ICD-10-PCS; CPT 93452; principal; 2023-10-13 10:30)
DX: E10.10 Type 1 diabetes mellitus with ketoacidosis without coma (principal); I21.4 Non-ST elevation (NSTEMI) myocardial infarction; I50.23 Acute on chronic systolic (congestive) heart failure; N18.6 End stage renal disease; J96.01 Acute respiratory failure with hypoxia; I13.2 Hypertensive heart and chronic kidney disease with heart failure and with stage 5 chronic kidney disease, or end stage renal disease; N25.81 Secondary hyperparathyroidism of renal origin; T85.694A Other mechanical complication of insulin pump, initial encounter; D63.1 Anemia in chronic kidney disease; E10.40 Type 1 diabetes mellitus with diabetic neuropathy, unspecified; E10.319 Type 1 diabetes mellitus with unspecified diabetic retinopathy without macular edema; E10.22 Type 1 diabetes mellitus with diabetic chronic kidney disease; E78.5 Hyperlipidemia, unspecified; F41.9 Anxiety disorder, unspecified; K21.9 Gastro-esophageal reflux disease without esophagitis; G47.33 Obstructive sleep apnea (adult) (pediatric); I48.0 Paroxysmal atrial fibrillation; I25.118 Atherosclerotic heart disease of native coronary artery with other forms of angina pectoris; M10.9 Gout, unspecified; R19.7 Diarrhea, unspecified; Z20.822 Contact with and (suspected) exposure to COVID-19; Z79.4 Long term (current) use of insulin; Z79.02 Long term (current) use of antithrombotics/antiplatelets; Z79.01 Long term (current) use of anticoagulants; Z79.85 Long-term (current) use of injectable non-insulin antidiabetic drugs; Z95.5 Presence of coronary angioplasty implant and graft; Z86.718 Personal history of other venous thrombosis and embolism; Z99.2 Dependence on renal dialysis; Z91.199 Patient's noncompliance with other medical treatment and regimen due to unspecified reason; Z90.49 Acquired absence of other specified parts of digestive tract
CPT/HCPCS: 36415; 71045; 76536; 80048; 80053; 81001; 82010; 82948; 83036; 83735; 84100; 84443; 84484; 85025; 85027; 85610; 85730; 86706; 87086; 87340; 87637; 87641; 90945; 93005; 93458; 94002; 96365; 96366; 96375; 99285; A9270; C1887; C1894; C8929; G0378; J1644; J1815; J1940; J2250; J2405; J3010; J7030; J7040; J7512; Q9957

== ENCOUNTER 2023-12-29 13:45 | Emergency (ER) | payer MEDICARE, MEDICAID, SELFPAY ==
--- NOTE | 2023-12-29 13:57 | ED.SKABFB ---
HPI - Skin/Abscess/Foreign Bdy General Chief complaint: Skin/Abscess/Foreign Body Stated complaint: rash Source: patient Mode of arrival: ambulatory Limitations: no limitations History of Present Illness HPI narrative: 53 y/o male with hx DM, ESRD on dialysis, CHF, presented for 2 concerns. 1. pt c/o rash to left face. He states he was told today he may have ringworm by someone who kanchan his INR. Pt denies any itching, pain, drainage to the site. He did not know anything was there. States he has a cat, who does not have any skin problems currently. Also states he recently shaved a heavy brito. Denies lip, tongue, or throat swelling, shortness of breath or wheezing. Denies changes to soap, detergent, lotion, or any other exposures. No one else in the house or any contacts with similar symptoms. 2. Pt also reports pain under bilateral shoulder blades, worse on the right for a few weeks. Pain worse when twisting or lifting. Rates 18/10 with these movements. Described as sharp and stabbing. Has taken Tylenol and applied lidocaine patch without improvement. Related Data Home Medications Medication Instructions Recorded Confirmed calcitriol 0.25 mcg capsule 0.25 mcg PO QAM 06/04/19 12/29/23 clopidogrel 75 mg tablet 75 mg PO DAILY 06/04/19 12/29/23 ergocalciferol (vitamin D2) 1,250 50,000 unit PO WEEKLY 06/04/19 12/29/23 mcg (50,000 unit) capsule (Vitamin D2) nitroglycerin 0.4 mg sublingual 0.4 mg sublingual Q5-15M PRN Chest 06/04/19 12/29/23 tablet Pain ezetimibe 10 mg tablet (Zetia) 10 mg PO DAILY 09/09/19 12/29/23 isosorbide mononitrate 30 mg 30 mg PO DAILY 09/09/19 12/29/23 tablet,extended release 24 hr ranolazine 500 mg tablet,extended 500 mg PO Q12H 09/24/19 12/29/23 release,12 hr (Ranexa) cetirizine 10 mg tablet (All Day 10 mg PO DAILY 12/26/19 12/29/23 Allergy (cetirizine)) furosemide 80 mg tablet (Lasix) 120 mg PO BID 02/02/20 12/29/23 famotidine 40 mg tablet 40 mg PO HS 03/31/20 12/29/23 atorvastatin 80 mg tablet 80 mg PO HS 11/26/20 12/29/23 colchicine 0.6 mg tablet (Colcrys) 0.6 mg PO QMWF 11/26/20 12/29/23 icosapent ethyl 1 gram capsule 2 g PO BID 06/02/22 12/29/23 (Vascepa) metoprolol succinate 50 mg 50 mg PO DAILY 05/20/23 12/29/23 tablet,extended release 24 hr nifedipine 90 mg tablet,extended 90 mg PO HS 05/20/23 12/29/23 release 24 hr potassium chloride 20 mEq 20 meq PO DAILY 05/20/23 12/29/23 tablet,extended release insulin lispro 100 unit/mL See Rx Instructions .Route .COMPLEX 05/31/23 12/29/23 subcutaneous solution (Humalog U-100 Insulin) cyclosporine 0.05 % eye drops in a 1 drp EACH EYE BID 07/25/23 12/29/23 dropperette (Restasis) febuxostat 40 mg tablet 40 mg PO HS 07/25/23 12/29/23 gemfibrozil 600 mg tablet 600 mg PO BID 07/25/23 12/29/23 insulin aspart U-100 100 unit/mL See Rx Instructions .Route .COMPLEX 07/25/23 12/29/23 subcutaneous solution (Novolog U-100 Insulin aspart) linaclotide 72 mcg capsule 72 mcg PO DAILY 07/25/23 12/29/23 (Linzess) losartan 25 mg tablet 12.5 mg PO HS 07/25/23 12/29/23 calcium acetate(phosphat bind) 667 667 mg PO QID 10/09/23 12/29/23 mg capsule omeprazole 20 mg capsule,delayed 20 mg PO DAILY 10/09/23 12/29/23 release Allergies Allergy/AdvReac Type Severity Reaction Status Date / Time allopurinol Allergy Severe Other Verified 12/29/23 14:01 iohexol Allergy Severe Difficulty Verified 12/29/23 14:01 [From CONTRAST - CT, XRAY] Breathing ticagrelor Allergy Intermediate Rash Verified 07/25/23 17:08 Review of Systems Review of Systems: CONSTITUTIONAL: Denies body aches, fever, chills, or sweats. EYES: Denies visual changes, redness, or discharge. ENT: Denies rhinorrhea, congestion CARDIOVASCULAR: Denies chest pain, palpitations, or edema. RESPIRATORY: Denies cough or dyspnea. GASTROINTESTINAL: Denies abdominal pain, nausea, vomiting, or diarrhea. SKIN: reports skin changes left face MUSCULOSKELETAL: reports right upper back pain
[2023-12-29 13:59] VITALS: BP 153/67; PULSE 73; RESP 20; TEMP 36.2; O2SAT 100
[2023-12-29 14:01] VITALS: BP 153/67; PULSE 73; RESP 20; TEMP 36.2; O2SAT 100
== END 2023-12-29 14:34 | disposition home or self-care (01) ==
PROVIDERS: Emergency Provider Nurse Practitioner Family; PCP Family Medicine
DX: L30.9 Dermatitis, unspecified (principal); M54.6 Pain in thoracic spine; E10.22 Type 1 diabetes mellitus with diabetic chronic kidney disease; N18.6 End stage renal disease; Z99.2 Dependence on renal dialysis; Z79.4 Long term (current) use of insulin; I50.9 Heart failure, unspecified; M25.511 Pain in right shoulder; F41.9 Anxiety disorder, unspecified; Z79.01 Long term (current) use of anticoagulants; Z86.718 Personal history of other venous thrombosis and embolism; E78.5 Hyperlipidemia, unspecified; G47.33 Obstructive sleep apnea (adult) (pediatric); Z99.89 Dependence on other enabling machines and devices; I48.0 Paroxysmal atrial fibrillation; Z87.891 Personal history of nicotine dependence
CPT/HCPCS: 99213; G0463

== ENCOUNTER 2024-02-05 16:15 | Outpatient (RCR) | payer MEDICARE, MEDICAID, SELFPAY ==
[2023-12-05 16:01] VITALS: PULSE 81
[2023-12-28 16:42] LABS: Glucose Point of Care 336 mg/dl (65-105)
== END 2024-03-01 15:37 | disposition home or self-care (01) ==
LOC: ANHCPREHAB 16:15
PROVIDERS: PCP Family Medicine; Visit Provider Internal Medicine Cardiovascular Disease
DX: Z95.2 Presence of prosthetic heart valve (principal); Z95.1 Presence of aortocoronary bypass graft
CPT/HCPCS: 93798

== ENCOUNTER 2024-02-13 07:35 | Emergency (ER) | payer MEDICARE, MEDICAID, SELFPAY ==
[2024-02-13 07:38] VITALS: BP 155/81; PULSE 75; RESP 16; TEMP 37; O2SAT 100
[2024-02-13 07:46] VITALS: BP 155/81; PULSE 75; RESP 16; TEMP 37; O2SAT 100
--- NOTE | 2024-02-13 08:35 | ED.EAR ---
HPI - Ear Problem General Chief complaint: Ear Stated complaint: left ear bleeding Time Seen by Provider: 02/13/24 07:51 History of Present Illness HPI Narrative: Male present to the emergency department for evaluation for bleeding from his left ear. Patient reports he was walking with a he noticed he was bleeding from his left ear. Patient denies any associated pain. But had the patient arrived to the emergency department the bleeding had resolved. Patient is on Coumadin. Related Data Home Medications Medication Instructions Recorded Confirmed calcitriol 0.25 mcg capsule 0.25 mcg PO QAM 06/04/19 12/29/23 clopidogrel 75 mg tablet 75 mg PO DAILY 06/04/19 12/29/23 ergocalciferol (vitamin D2) 1,250 50,000 unit PO WEEKLY 06/04/19 12/29/23 mcg (50,000 unit) capsule (Vitamin D2) nitroglycerin 0.4 mg sublingual 0.4 mg sublingual Q5-15M PRN Chest 06/04/19 12/29/23 tablet Pain ezetimibe 10 mg tablet (Zetia) 10 mg PO DAILY 09/09/19 12/29/23 isosorbide mononitrate 30 mg 30 mg PO DAILY 09/09/19 12/29/23 tablet,extended release 24 hr ranolazine 500 mg tablet,extended 500 mg PO Q12H 09/24/19 12/29/23 release,12 hr (Ranexa) cetirizine 10 mg tablet (All Day 10 mg PO DAILY 12/26/19 12/29/23 Allergy (cetirizine)) furosemide 80 mg tablet (Lasix) 120 mg PO BID 02/02/20 12/29/23 famotidine 40 mg tablet 40 mg PO HS 03/31/20 12/29/23 atorvastatin 80 mg tablet 80 mg PO HS 11/26/20 12/29/23 colchicine 0.6 mg tablet (Colcrys) 0.6 mg PO QMWF 11/26/20 12/29/23 icosapent ethyl 1 gram capsule 2 g PO BID 06/02/22 12/29/23 (Vascepa) metoprolol succinate 50 mg 50 mg PO DAILY 05/20/23 12/29/23 tablet,extended release 24 hr nifedipine 90 mg tablet,extended 90 mg PO HS 05/20/23 12/29/23 release 24 hr potassium chloride 20 mEq 20 meq PO DAILY 05/20/23 12/29/23 tablet,extended release insulin lispro 100 unit/mL See Rx Instructions .Route .COMPLEX 05/31/23 12/29/23 subcutaneous solution (Humalog U-100 Insulin) cyclosporine 0.05 % eye drops in a 1 drp EACH EYE BID 07/25/23 12/29/23 dropperette (Restasis) febuxostat 40 mg tablet 40 mg PO HS 07/25/23 12/29/23 gemfibrozil 600 mg tablet 600 mg PO BID 07/25/23 12/29/23 insulin aspart U-100 100 unit/mL See Rx Instructions .Route .COMPLEX 07/25/23 12/29/23 subcutaneous solution (Novolog U-100 Insulin aspart) linaclotide 72 mcg capsule 72 mcg PO DAILY 07/25/23 12/29/23 (Linzess) losartan 25 mg tablet 12.5 mg PO HS 07/25/23 12/29/23 calcium acetate(phosphat bind) 667 667 mg PO QID 10/09/23 12/29/23 mg capsule omeprazole 20 mg capsule,delayed 20 mg PO DAILY 10/09/23 12/29/23 release Allergies Allergy/AdvReac Type Severity Reaction Status Date / Time allopurinol Allergy Severe Other Verified 02/13/24 07:48 iohexol Allergy Severe Difficulty Verified 02/13/24 07:48 [From CONTRAST - CT, XRAY] Breathing ticagrelor Allergy Intermediate Rash Verified 02/13/24 07:48 Review of Systems Review of Systems: All systems reviewed & are unremarkable except as noted in HPI and below [facility] Past Medical History Medical History Anemia in chronic kidney disease Anxiety Arthritis Chronic anticoagulation Congestive heart failure Echocardiogram May 2017 EF of 50% with hypokinetic apical, inferior and basal inferior lateral segment, mild enlargement of left atrium. Coronary artery disease With history of several stents. 05/2022 Complex procedure at [facility]/ stenting of a heavly calcified CX on OM using shockwave tx, Impella. Followed by Dr. Ortega at [facility]. Deep venous thrombosis Chronic right popliteal DVT. Diabetic peripheral neuropathy Diabetic retinopathy Elevated LFTs End-stage renal disease on peritoneal dialysis Essential hypertension Gastroesophageal reflux disease Gout Hyperlipidemia Obstructive sleep apnea With inconsistent CPAP use. Paroxysmal atrial fibrillation Peritoneal dialy
[2024-02-13] MEDS: CEPHALEXIN 500 MG CAPSULE PO (08:41)
[2024-02-13 09:04] LABS: INR 2.9; Prothrombin Time 30.6 Seconds (11.1-14.7)
[2024-02-13 09:20] VITALS: BP 157/81; PULSE 64; RESP 15; TEMP 36.7; O2SAT 98
== END 2024-02-13 09:22 | disposition home or self-care (01) ==
PROVIDERS: Emergency Provider Emergency Medicine; PCP Family Medicine
DX: H92.22 Otorrhagia, left ear (principal); I50.9 Heart failure, unspecified; I25.10 Atherosclerotic heart disease of native coronary artery without angina pectoris; E11.22 Type 2 diabetes mellitus with diabetic chronic kidney disease; I13.2 Hypertensive heart and chronic kidney disease with heart failure and with stage 5 chronic kidney disease, or end stage renal disease; N18.6 End stage renal disease; E78.5 Hyperlipidemia, unspecified; Z86.718 Personal history of other venous thrombosis and embolism; Z87.891 Personal history of nicotine dependence
CPT/HCPCS: 36415; 85610; 99283; A9270

== ENCOUNTER 2024-02-16 13:19 | Inpatient (IN) | payer MEDICARE, MEDICAID, SELFPAY ==
[2024-02-16] VITALS (13 sets, daily range): BP systolic 109–154; BP diastolic 43–60; PULSE 65–84; RESP 12–26; TEMP 36.9–37.1; O2SAT 95–100; BMI 39.4
--- NOTE | ~2024-02-16 | XR_ITS ---
XR chest 1V portable Ordering provider: Gricelda Linn MD History: 53 years Male with . DKA; HX HEART SURGERY 4 MOS AGO . Comparison: October 10, 2023 FINDINGS: MEDIASTINUM: The cardiac silhouette is slightly enlarged. Congestive kallie LUNGS: No effusion or pneumothorax. Opacification in the left lung base laterally is noted suggestive of atelectasis versus pneumonia. . Prominent markings bilaterally. OTHER: No free air under the diaphragm. Degenerative the spine. Postoperative changes in the sternum. IMPRESSION: Left basal atelectasis versus pneumonia. Reviewed, dictated and finalized at location A.
--- NOTE | 2024-02-16 13:30 | PC.NURSE ---
blood sugar reading is HIGH at this time
[2024-02-16 13:33] LABS: Glucose Point of Care > 500 mg/dl (65-105)
[2024-02-16 13:36] LABS: Basophils Percent Auto 0.2 % (0.2-1.2); Hematocrit 33.2 % (42.0-52.0); Hemoglobin 10.3 g/dL (14.0-18.0); Immature Granulocyte Absolute 0.04 K/mm3 (0.00-0.031); Immature Granulocyte Percent A 0.7 % (0-0.5); Lymphocytes Absolute Auto 0.35 K/mm3 (0.9-3.2); Lymphocytes Percent Auto 6.3 % (18.3-44.2); Mean Corpuscular Hemoglobin 29.6 pg (26-34); Mean Corpuscular Volume 95.4 fl (80-100); Monocytes Absolute Auto 0.4 K/mm3 (0.1-0.6); Monocytes Percent Auto 7.3 % (2.6-8.5); Neutrophils Absolute Auto 4.8 K/mm3 (1.3-6.7); Neutrophils Percent Auto 85.5 % (45.5-73.1); Platelet Count Result 212 k/mm3 (150-375); Red Blood Count 3.48 M/mm3 (4.6-6.20); Red Cell Distribution Width 14.6 % (11.5-14.5); White Blood Count 5.6 K/mm3 (4.5-10.0)
[2024-02-16] MEDS: SODIUM CHLORIDE 0.9% IV 1,000 ML 999 ML IV CONT ×2 (13:41→14:42)
[2024-02-16 13:51] LABS: Albumin Level 4.2 g/dL (3.5-5.1); Alkaline Phosphatase 132 U/L (38-126); Anion Gap 27 mmol/L (4-12); Aspartate Amino Transferase 46 U/L (17-59); Bilirubin,Total 0.9 mg/dL (0.2-1.3); Blood Urea Nitrogen 67 mg/dL (9-20); Calcium 8.5 mg/dL (8.4-10.2); Carbon Dioxide 12 mmol/L (22-30); Chloride 86 mmol/L (98-107); Estimated CRCL calculation 15 ml/min; Estimated Glomerular Filt Rate 9; Magnesium 2.2 mg/dL (1.6-2.3); Phosphorus 7.7 mg/dL (2.5-4.5); Potassium 5.5 mmol/L (3.4-5.0); Sodium 125 mmol/L (137-145)
[2024-02-16 13:52] LABS: Beta-Hydroxybutyrate/Acetoacetate 3.91 mmol/L (0.02-0.27)
[2024-02-16 14:00] LABS: Alanine Aminotransferase 36 U/L (6-50); Glucose 971 mg/dL (65-110)
--- NOTE | 2024-02-16 14:43 | ED.GENADULT ---
HPI - General Adult General Chief complaint: Recheck/Abnormal Lab/Rx Stated complaint: N/V Time Seen by Provider: 02/16/24 14:35 History of Present Illness HPI narrative: Patient is a 53-year-old male who presents to the emergency department this afternoon concerned for DKA. Patient is an insulin-dependent type 1 diabetic and has an insulin pump. Yesterday he states that his sugars have been running low and he turn off his insulin pump for a few hours but accidentally fell asleep with his pump off and woke up this morning with blood glucose level readings of over 500 and with nausea and vomiting. Patient is also peritoneal dialysis patient and does his own peritoneal dialysis at home daily. He sees Dr. Reyes with Nephrology. Denies any chest pain or any abdominal pain at this time. No fevers or chills. No additional symptoms or concerns at this time. Related Data Home Medications Medication Instructions Recorded Confirmed calcitriol 0.25 mcg capsule 0.25 mcg PO QAM 06/04/19 12/29/23 clopidogrel 75 mg tablet 75 mg PO DAILY 06/04/19 12/29/23 ergocalciferol (vitamin D2) 1,250 50,000 unit PO WEEKLY 06/04/19 12/29/23 mcg (50,000 unit) capsule (Vitamin D2) nitroglycerin 0.4 mg sublingual 0.4 mg sublingual Q5-15M PRN Chest 06/04/19 12/29/23 tablet Pain ezetimibe 10 mg tablet (Zetia) 10 mg PO DAILY 09/09/19 12/29/23 isosorbide mononitrate 30 mg 30 mg PO DAILY 09/09/19 12/29/23 tablet,extended release 24 hr ranolazine 500 mg tablet,extended 500 mg PO Q12H 09/24/19 12/29/23 release,12 hr (Ranexa) cetirizine 10 mg tablet (All Day 10 mg PO DAILY 12/26/19 12/29/23 Allergy (cetirizine)) furosemide 80 mg tablet (Lasix) 120 mg PO BID 02/02/20 12/29/23 famotidine 40 mg tablet 40 mg PO HS 03/31/20 12/29/23 atorvastatin 80 mg tablet 80 mg PO HS 11/26/20 12/29/23 colchicine 0.6 mg tablet (Colcrys) 0.6 mg PO QMWF 11/26/20 12/29/23 icosapent ethyl 1 gram capsule 2 g PO BID 06/02/22 12/29/23 (Vascepa) metoprolol succinate 50 mg 50 mg PO DAILY 05/20/23 12/29/23 tablet,extended release 24 hr nifedipine 90 mg tablet,extended 90 mg PO HS 05/20/23 12/29/23 release 24 hr potassium chloride 20 mEq 20 meq PO DAILY 05/20/23 12/29/23 tablet,extended release insulin lispro 100 unit/mL See Rx Instructions .Route .COMPLEX 05/31/23 12/29/23 subcutaneous solution (Humalog U-100 Insulin) cyclosporine 0.05 % eye drops in a 1 drp EACH EYE BID 07/25/23 12/29/23 dropperette (Restasis) febuxostat 40 mg tablet 40 mg PO HS 07/25/23 12/29/23 gemfibrozil 600 mg tablet 600 mg PO BID 07/25/23 12/29/23 insulin aspart U-100 100 unit/mL See Rx Instructions .Route .COMPLEX 07/25/23 12/29/23 subcutaneous solution (Novolog U-100 Insulin aspart) linaclotide 72 mcg capsule 72 mcg PO DAILY 07/25/23 12/29/23 (Linzess) losartan 25 mg tablet 12.5 mg PO HS 07/25/23 12/29/23 calcium acetate(phosphat bind) 667 667 mg PO QID 10/09/23 12/29/23 mg capsule omeprazole 20 mg capsule,delayed 20 mg PO DAILY 10/09/23 12/29/23 release Allergies Allergy/AdvReac Type Severity Reaction Status Date / Time allopurinol Allergy Severe Other Verified 02/16/24 16:51 iohexol Allergy Severe Difficulty Verified 02/16/24 16:51 [From CONTRAST - CT, XRAY] Breathing ticagrelor Allergy Intermediate Rash Verified 02/16/24 16:51 Review of Systems Review of Systems: All systems are reviewed and are negative unless stated otherwise in the HPI. [facility] Past Medical History Medical History Anemia in chronic kidney disease Anxiety Arthritis Chronic anticoagulation Congestive heart failure Echocardiogram May 2017 EF of 50% with hypokinetic apical, inferior and basal inferior lateral segment, mild enlargement of left atrium. Coronary artery disease With history of several stents. 05/2022 Complex procedure at [facility] w/ stenting of a heavly calcified CX on OM using shockwave tx, Impella. Followed b
[2024-02-16 14:55] LABS: Appearance Urine Clear (Clear); Bacteria Urine None Seen /hpf; Bilirubin Urine Negative (Negative); Blood Urine Trace (Negative); Color Urine Yellow (Yellow); Glucose Urine UA 3+ mg/dL (Negative); Ketones Urine Trace mg/dL (Negative); Leukocyte Esterase Ur Negative LEU/UL (Negative); Need Manual Microscopic Reviewed; Nitrate Urine Negative (Negative); Non Pathogenic Casts 0-2; Protein Urine 1+ mg/dL (Negative); RBC Urine 0-2 /hpf (0-2); Specific Grav Ur 1.021 (1.001-1.035); Squamous Epithelial Cell Urine None Seen /hpf (Few); Urobilinogen Urine 0.2 mg/dL (<2.0); WBC Urine 0-5 /hpf (0-3)
[2024-02-16 14:57] LABS: Add Urine Microscopic? YES
[2024-02-16] MEDS: INSULIN HUMAN REGULAR (*BKC) 100 UNITS in SODIUM CHLORIDE 0.9% IV 99 ML 12.48 UNITS IV CONT (15:06)
--- NOTE | 2024-02-16 15:16 | PM.IMHP ---
H&P: HPI History of Present Illness Date/Time: 02/16/24 15:16 Chief Complaint: Hyperglycemia Narrative: 53 y/o M presents here with hyperglycemia with PMH of DM1, CABG x3, aortic pump, ESRD on PD, anemia in CKD, CHF, CAD, DVT (chronic right popliteal), HTN, GERD, gout, HLD, BEN, pAfib, renal osteodystrophy, and secondary hyperparathyroidism of renal origin. The patient presents here via EMS from home for further evaluation of hyperglycemia. Patient is a type 1 diabetic and on an insulin pump. He reports his blood sugar was low in the 70s last night so he turned his insulin pump off. Reports no recent issues with hypoglycemia. Patient failed to turn it back on after he set up his peritoneal dialysis for the night due to falling asleep. Woke up this morning and glucose monitor reading high (EMS glucometer also reading high). Hyperglycemia is accompanied by dry mucosa, nausea, vomiting, and generalized weakness. Patient also reports hematemesis or spitting up blood further described as red tinged emesis and started after patient had been vomiting for some time. Patient is on chronic anticoagulation due to paroxysmal AFib. On peritoneal dialysis nightly due to ESRD. Last episode of DKA over a year ago. Currently feeling improved but fatigued. Reports increased cough that is intermittently productive and mild shortness of breath for the past few weeks. Denies fever, chills or body aches. Initial VS at presentation: HR 84, RR 16, 129/53, and 100% on RA. ED workup showed: No leukocytosis, hemoglobin 10.3, sodium 125 (pseudo hyponatremia in the setting of hyperglycemia), K 5.5, creatinine 6.7 and GFR 9, initial glucose 971, phosphorus 7.7, and beta hydroxy 3.91. UA showed 1+ protein, 3+ glucose, trace ketones. Review of Systems Review of Systems: All systems reviewed & are unremarkable except as noted in HPI and below [facility] Past Medical History Medical History Anemia in chronic kidney disease Anxiety Arthritis Chronic anticoagulation Congestive heart failure Echocardiogram May 2017 EF of 50% with hypokinetic apical, inferior and basal inferior lateral segment, mild enlargement of left atrium. Coronary artery disease With history of several stents. 05/2022 Complex procedure at [place] w/ stenting of a heavly calcified CX on OM using shockwave tx, Impella. Followed by Dr. Ortega at [facility]. Deep venous thrombosis Chronic right popliteal DVT. Diabetic peripheral neuropathy Diabetic retinopathy Elevated LFTs End-stage renal disease on peritoneal dialysis Essential hypertension Gastroesophageal reflux disease Gout Hyperlipidemia Obstructive sleep apnea With inconsistent CPAP use. Paroxysmal atrial fibrillation Peritoneal dialysis status Renal osteodystrophy Secondary hyperparathyroidism of renal origin Seizure X1 with etiology unknown Type 1 diabetes mellitus Onset around age 13. Surgical History Surgical History History of anterior cruciate ligament surgery (2000) Left knee History of appendectomy (2006) History of arthroscopy of left knee History of bilateral carpal tunnel release Right 05/03/2018. Left 06/02/2018. History of cardiac catheterization 01/21/2021 catheterization at [facility], Dr. Hoover done: Little change from prior catheterization. Patent stents in the RCA and PDA. Previously jailed posterolateral is occluded and development of a 50% stenosis of a branch of om 1. Normal LV function. :August 2019 demonstrated patent stents with 40% stenosis of 1 vessel with no stents or angioplasty performed per patient report. :November 2018 at [facility] - stent x3. :March 2017 demonstrating mild diffuse coronary disease 80% lesion small sub branch of obtuse marginal 1 and 90% stenosis distal RCA into the origin of the PDA with PTCA and stent to the RPDA/dist
[2024-02-16 15:45] LABS: Glucose Point of Care > 500 mg/dl (65-105)
[2024-02-16 16:16] LABS: Alveolar/Arterial O2 Gradient 28.5 mmHg; Base Excess ABG -15.8 mEq/l (+/-2.0); Fractional Inspired Oxygen 21 %; HCO3 ABG 9.5 mEq/l (22.0-26.0); Oxygen Content ABG 14.2 %vol (16.0-22.0); Oxygen Saturation ABG 96.5 % (95.0-100.0); Oxyhemoglobin 95.1 % THb (90.0-100.0); PO2 ABG 95.5 mmHg (80.0-100.0); PO2 FiO2 Ratio Arterial Blood 4.55 %; Total Hemoglobin 10.5 g/dL (12.0-18.0)
[2024-02-16 16:20] LABS: Device ROOM AIR; Modified Allen's Test Pass; PCO2 ABG 21.5 mmHg (35.0-45.0); Site Drawn LEFT RADIAL
[2024-02-16 16:24] LABS: pH ABG 7.261 (7.350-7.450)
[2024-02-16 17:04] LABS: Glucose Point of Care > 500 mg/dl (65-105)
--- NOTE | 2024-02-16 17:20 | ADMGEN ---
This patient, Juvenal Daigle Jr., was admitted to Intensive Care Unit-2. Patient/family oriented to hospital policies and general routines including ID bracelet, bed and alarms, visiting hours, pain management, procedures, bathroom and other care routines, personal items, smoking policy, room service/diet, and visiting hours. Information on how to activate the Rapid Response Team has been discussed. Patient/Family are encouraged to report perceived risks to care and to ask questions if they do not understand what they are told or what they should do.
[2024-02-16] MEDS: AZITHROMYCIN 500 MG/NS 250 ML 500 MG/250 ML BAG 250 MG IVPB (17:23)
[2024-02-16 17:54] LABS: Anion Gap 25 mmol/L (4-12); Blood Urea Nitrogen 67 mg/dL (9-20); Calcium 8.1 mg/dL (8.4-10.2); Carbon Dioxide 11 mmol/L (22-30); Chloride 90 mmol/L (98-107); Estimated CRCL calculation 15 ml/min; Estimated Glomerular Filt Rate 8; Glucose 792 mg/dL (65-110); Potassium 4.5 mmol/L (3.4-5.0); Sodium 126 mmol/L (137-145)
[2024-02-16] MEDS: INSULIN HUMAN REGULAR (*BKC) 100 UNITS/ML 6 UNITS IV PUSH ×2 (18:14→20:40)
[2024-02-16 18:27] LABS: MRSA (PCR) NOT DETECTED (NOT DETECTE)
[2024-02-16 18:56] LABS: Hepatitis B Surface Antigen Negative (Negative)
[2024-02-16 18:58] LABS: Glucose Point of Care > 500 mg/dl (65-105)
[2024-02-16 18:58] LABS: Glucose Point of Care > 500 mg/dl (65-105)
[2024-02-16 19:15] LABS: Hepatitis B Surface Anti Res Positive
[2024-02-16 19:20] LABS: Glucose Point of Care > 500 mg/dl (65-105)
[2024-02-16 19:50] LABS: Glucose 670 mg/dL (65-110)
[2024-02-16] MEDS: INSULIN HUMAN REGULAR (*BKC) 100 UNITS in SODIUM CHLORIDE 0.9% IV 99 ML 30.5 UNITS IV CONT (20:48)
[2024-02-16 21:07] LABS: Anion Gap 16 mmol/L (4-12); Blood Urea Nitrogen 69 mg/dL (9-20); Calcium 8.5 mg/dL (8.4-10.2); Carbon Dioxide 19 mmol/L (22-30); Chloride 92 mmol/L (98-107); Estimated CRCL calculation 14 ml/min; Estimated Glomerular Filt Rate 8; Glucose 563 mg/dL (65-110); Potassium 3.5 mmol/L (3.4-5.0); Sodium 127 mmol/L (137-145)
[2024-02-16 21:31] LABS: Glucose Point of Care 463 mg/dl (65-105)
[2024-02-16 22:01] LABS: Glucose Point of Care 442 mg/dl (65-105)
[2024-02-16 22:13] LABS: INR 3.4; Prothrombin Time 34.3 Seconds (11.1-14.7)
[2024-02-16] MEDS: WATER FOR IRRIGATION, STERILE 500 ML BOTTLE (22:26)
[2024-02-16] MEDS: METOPROLOL SUCCINATE EXT REL 25 MG TABCR PO (23:08)
[2024-02-17] VITALS (15 sets, daily range): BP systolic 111–152; BP diastolic 56–68; PULSE 60–78; RESP 14–19; TEMP 36.1–36.9; O2SAT 93–100
[2024-02-17 00:14] LABS: Glucose Point of Care 341 mg/dl (65-105)
[2024-02-17 00:14] LABS: Glucose Point of Care 407 mg/dl (65-105)
[2024-02-17 01:15] LABS: Anion Gap 12 mmol/L (4-12); Blood Urea Nitrogen 68 mg/dL (9-20); Calcium 8.9 mg/dL (8.4-10.2); Carbon Dioxide 23 mmol/L (22-30); Chloride 95 mmol/L (98-107); Estimated CRCL calculation 14 ml/min; Estimated Glomerular Filt Rate 8; Glucose 295 mg/dL (65-110); Sodium 130 mmol/L (137-145)
[2024-02-17] MEDS: INSULIN HUMAN REGULAR (*BKC) 100 UNITS in SODIUM CHLORIDE 0.9% IV 99 ML 20.5 UNITS IV CONT (01:15)
[2024-02-17] MEDS: POTASSIUM CHLORIDE 20 MEQ ER TABLET 40 MEQ PO ×2 (02:04→08:45)
[2024-02-17 02:10] LABS: Glucose Point of Care 186 mg/dl (65-105)
[2024-02-17 02:10] LABS: Glucose Point of Care 271 mg/dl (65-105)
--- NOTE | 2024-02-17 03:45 | PC.NURSE ---
Addendum entered by Nora Matt RN 02/17/24 07:31: Patient glucose dropped to 70 while insulin gtt on hold per patient request. Dr. Reed made aware and gave order for 1/2 amp of d50 which was given and order obtained to resume drip at 1 unit/hr if patient is 200 or greater. Original Note: Patient anxious regarding drop in blood sugar. Explained plan of care as discussed with Dr. Mi to decrease insulin drip rate to 2 units/hr. Patient states that he is uncomfortable and does not want any additional insulin until his glucose reaches 150 or greater. Insulin drip paused at request of patient.
[2024-02-17 04:24] LABS: Glucose Point of Care 82 mg/dl (65-105)
[2024-02-17 04:24] LABS: Glucose Point of Care 128 mg/dl (65-105)
[2024-02-17] MEDS: DEXTROSE 50% 25 GM/50 ML SYRINGE IV PUSH ×2 (04:40→16:16)
[2024-02-17 05:12] LABS: Glucose Point of Care 70 mg/dl (65-105)
[2024-02-17 05:12] LABS: Glucose Point of Care 122 mg/dl (65-105)
[2024-02-17 06:40] LABS: Alanine Aminotransferase 26 U/L (6-50); Albumin Level 3.6 g/dL (3.5-5.1); Alkaline Phosphatase 102 U/L (38-126); Anion Gap 10 mmol/L (4-12); Aspartate Amino Transferase 38 U/L (17-59); Bilirubin,Total 0.5 mg/dL (0.2-1.3); Blood Urea Nitrogen 66 mg/dL (9-20); Calcium 8.7 mg/dL (8.4-10.2); Carbon Dioxide 26 mmol/L (22-30); Chloride 96 mmol/L (98-107); Estimated CRCL calculation 13 ml/min; Estimated Glomerular Filt Rate 8; Glucose 140 mg/dL (65-110); Magnesium 2.1 mg/dL (1.6-2.3); Phosphorus 5.5 mg/dL (2.5-4.5); Potassium 3.5 mmol/L (3.4-5.0); Sodium 132 mmol/L (137-145)
[2024-02-17] MEDS: LEVOTHYROXINE SODIUM 25 MCG TABLET PO (06:40)
[2024-02-17 06:41] LABS: Basophils Percent Auto 0.6 % (0.2-1.2); Eosinophils Absolute Auto 0.1 K/mm3 (0-0.3); Hematocrit 28.9 % (42.0-52.0); Hemoglobin 9.5 g/dL (14.0-18.0); Immature Granulocyte Absolute 0.02 K/mm3 (0.00-0.031); Immature Granulocyte Percent A 0.3 % (0-0.5); Lymphocytes Absolute Auto 1.65 K/mm3 (0.9-3.2); Lymphocytes Percent Auto 23.6 % (18.3-44.2); Mean Corpuscular HGB Conc 32.9 g/dl (32-36); Mean Corpuscular Hemoglobin 29.6 pg (26-34); Mean Platelet Volume 10.7 fl (7.4-10.4); Monocytes Absolute Auto 1.2 K/mm3 (0.1-0.6); Monocytes Percent Auto 17.5 % (2.6-8.5); Neutrophils Absolute Auto 3.9 K/mm3 (1.3-6.7); Platelet Count Result 211 k/mm3 (150-375); Red Blood Count 3.21 M/mm3 (4.6-6.20); Red Cell Distribution Width 14.6 % (11.5-14.5)
[2024-02-17 06:45] LABS: Glucose Point of Care 144 mg/dl (65-105)
[2024-02-17 07:03] LABS: Glucose Point of Care 160 mg/dl (65-105)
[2024-02-17] MEDS: INSULIN HUMAN REGULAR (*BKC) 100 UNITS in SODIUM CHLORIDE 0.9% IV 99 ML IV CONT (08:05)
--- NOTE | 2024-02-17 08:09 | WPDCNINT ---
Assessment and Plan Assessment and plan (1) DKA (diabetic ketoacidosis): Qualifiers: Diabetes mellitus complication detail: without coma Diabetes mellitus type: type 1 Qualified Code(s): E10.10 - Type 1 diabetes mellitus with ketoacidosis without coma Code(s): E11.10 - Type 2 diabetes mellitus with ketoacidosis without coma Status: Acute Assessment and Plan: Patient presented with DKA due to mismanagement of his insulin pump Patient was given IVF bolus but not started on infusion due to his end-stage renal disease Patient was started on Insulin infusion and Q1H glucose monitoring was done Serial labs were performed in his anion gap has closed Patient is also clinically improved and asymptomatic now Will start diabetic diet I will transition patient back to his insulin pump he is going to call his son to bring the insulin pod for his pump. Until then will continue insulin infusion. Once he is back on insulin pump will continue sliding scale for additional supplementation if needed. (2) Pneumonia: Qualifiers: Laterality: left Lung location: lower lobe of lung Pneumonia type: due to unspecified organism Qualified Code(s): J18.9 - Pneumonia, unspecified organism Code(s): J18.9 - Pneumonia, unspecified organism Status: Acute Assessment and Plan: Patient reporting cough which is productive last few weeks Chest x-ray as above Blood cultures have been sent His WBC is normal and will check procalcitonin level Patient was started on Rocephin azithromycin which will be continued Check PCR for RSV COVID and influenza (3) End-stage renal disease on peritoneal dialysis: Code(s): N18.6 - End stage renal disease; Z99.2 - Dependence on renal dialysis Status: Acute Assessment and Plan: Nephrology consulted and Patient has been resumed back on his PD scheduled (4) Chronic anticoagulation: Code(s): 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 This critical care time included obtaining a history; examining the patient; pulse oximetry; ordering and review of studies; arranging urgent treatment with development of a management plan; evaluation of patient's response to treatment; frequent reassessment; and discussions with other providers. It was exclusive of separately billable procedures and treating other patients and teaching time. Please see Assessment and Plan section and the rest of the note for further information on patient assessment and treatment Customer Success Director Consult Note Consult date: 02/17/24 Reason for consult: DKA, pneumonia HPI: Juvenal Daigle Jr. is a 53 year old male presented to ER yesterday with hyperglycemia. He has PMH of DM1, CABG x3, aortic pump, ESRD on PD, anemia in CKD, CHF, CAD, DVT (chronic right popliteal), HTN, GERD, gout, HLD, BEN, pAfib, renal osteodystrophy, and secondary hyperparathyroidism of renal origin. Patient is on an insulin pump. He reports his blood sugar was low in the 70s on 02/14 so he turned his insulin pump off in the evening. Reports no recent issues with hypoglycemia. Patient failed to turn it back on after he set up his peritoneal dialysis for the night and fell asleep. Woke up this morning and glucose monitor reading high (EMS glucometer also reading high). Hyperglycemia is accompanied by nausea, vomiting, and generalized weakness. No blood in the vomitus. Patient is on chronic anticoagulation due to paroxysmal
[2024-02-17 08:22] LABS: Glucose Point of Care 205 mg/dl (65-105)
[2024-02-17] MEDS: ATORVASTATIN 40 MG TABLET 80 MG PO (08:46)
[2024-02-17] MEDS: calcitrioL 0.25 MCG CAPSULE PO (08:47)
[2024-02-17] MEDS: CALCIUM ACETATE 667 MG TABLET PO ×3 (08:47→17:13)
[2024-02-17] MEDS: cycloSPORINE 0.4 ML OPHTH SOLUTION 1 DROP EACH EYE ×2 (08:47→17:13)
[2024-02-17] MEDS: LORATADINE 10 MG TABLET PO (08:48)
[2024-02-17] MEDS: EZETIMIBE 10 MG TABLET PO (08:48)
[2024-02-17] MEDS: gemfibroziL 600 MG TABLET PO ×2 (08:48→17:13)
[2024-02-17] MEDS: PANTOPRAZOLE 40 MG TABLET PO (08:48)
[2024-02-17] MEDS: TORSEMIDE 20 MG TABLET 100 MG PO (08:48)
[2024-02-17] MEDS: MICONAZOLE NITRATE 2% CREAM 30 GM TUBE 1 APPLIC TOPICAL ×2 (08:50→17:13)
[2024-02-17 09:11] LABS: Procalcitonin 3.8 ng/mL
[2024-02-17 09:19] LABS: Glucose Point of Care 231 mg/dl (65-105)
--- NOTE | 2024-02-17 09:45 | PM.CNNEP ---
Assessment and Plan Assessment and plan (1) End stage renal disease: Code(s): N18.6 - End stage renal disease Status: Chronic Assessment and Plan: continue nightly CCPD while hospitalized follow electrolytes, volume status, and clearance (2) DKA (diabetic ketoacidosis): Qualifiers: Diabetes mellitus complication detail: without coma Diabetes mellitus type: type 1 Qualified Code(s): E10.10 - Type 1 diabetes mellitus with ketoacidosis without coma Code(s): E11.10 - Type 2 diabetes mellitus with ketoacidosis without coma Status: Acute Assessment and Plan: apparently triggered by inadvertently not turning insulin pump back on... s/p IVF bolus and insulin gtt closure of anion gap noted clinical improvement in symptoms to be transitioned back to insulin pump (with subsequent discontinuation of insulin infusion) (3) Pneumonia: Qualifiers: Pneumonia type: due to unspecified organism Laterality: left Lung location: lower lobe of lung Qualified Code(s): J18.9 - Pneumonia, unspecified organism Code(s): J18.9 - Pneumonia, unspecified organism Status: Acute Assessment and Plan: admission CXR findings noted symptoms on productive cough for the last few weeks with SOB follow blood cultures on antibiotics viral testing negative (4) Anemia: Code(s): D64.9 - Anemia, unspecified Status: Chronic Assessment and Plan: due to ESRD and possibly acute illness resume Epogen while hospitalized follow trend of H/H (5) Hypertension: Code(s): I10 - Essential (primary) hypertension Status: Chronic Assessment and Plan: good control at this time follow trend of hemodynamics (6) Type 1 diabetes mellitus: Code(s): E10.9 - Type 1 diabetes mellitus without complications Status: Chronic Assessment and Plan: to resume use of insulin pump when receives supplies from home follow accu-cheks glycemic control per hospitalist/clam picker I will continue follow the patient with you while he remains hospitalized and make further recommendations as deemed necessary. Thank you for allowing me to participate in the care this patient. History of Present Illness Reason for Consult Consult date: 02/17/24 Reason for consult: end stage renal disease (on peritoneal dialysis) Chief Complaint Chief complaint: DKA History of Present Illness Narrative: The patient is a 53-year-old male with a past medical history as outlined below who presented to [facility] Emergency Room via EMS for further evaluation of hyperglycemia. The patient is a known type 1 diabetic and uses an insulin pump for regulation of his blood sugars. He reports the evening before admission he was having issues with hypoglycemia so he turned his insulin pump off. he subsequently set up his peritoneal dialysis that evening but neglected to turn back on his insulin pump and subsequently fell asleep. He woke up on the morning of admission with his glucose monitor reading extremely elevated ( high ). In association with the high blood sugars, he developed symptoms of nausea, vomiting, generalized weakness as well as increased thirst. While he was having issues with his vomiting he did report slight amount emesis which he described as red tinged emesis after several bouts of vomiting. This symptom is further complicated by the fact he is on chronic anticoagulation due to his paroxysmal atrial fibrillation. Other associated symptoms include increased cough that is intermittently productive with mild shortness of breath or last few weeks. No overt fevers, chills, body aches, dizziness, lightheadedness, or palpitations. Given these constellation of symptoms in conjunction with his hyperglycemia, he called EMS and he was subsequently transferred to the emergency room for further assessment. Workup and evaluation emergency room d
[2024-02-17 10:07] LABS: Glucose Point of Care 214 mg/dl (65-105)
[2024-02-17 10:20] LABS: Influenza A QL RT-PCR Negative (Negative); Influenza B QL RT-PCR Negative (Negative); RSV RNA, RT-PCR Negative (Negative); SARS-CoV-2 RNA PCR Negative (Negative)
[2024-02-17 11:41] LABS: Glucose Point of Care 131 mg/dl (65-105)
[2024-02-17] MEDS: AZITHROMYCIN 500 MG/NS 250 ML 500 MG/250 ML BAG 250 MG IVPB (15:43)
[2024-02-17 16:34] LABS: Glucose Point of Care 58 mg/dl (65-105)
[2024-02-17 16:34] LABS: Glucose Point of Care 102 mg/dl (65-105)
--- NOTE | 2024-02-17 16:42 | PC.NURSE ---
Pt placed call light on around 1600. Stated dexcom showed level of 68, requested orange juice. Pt turned off his insulin pump. Pt drank 2 orange juices. Stayed with patient. Pt stated he still did not feel good. Blood glucose checked with hospital glucometer, and it showed a level of 58. D/t pt feeling nauseated, given 12.5 of IV glucose. Recheck 15 minutes later showed 102.
--- NOTE | 2024-02-17 18:22 | PC.NURSE ---
Pt transported to room 347 via wheelchair. All belongings returned to patient. Medications given to 3rd floor RN. Questions answered
[2024-02-17] MEDS: METOPROLOL SUCCINATE EXT REL 25 MG TABCR PO (21:06)
[2024-02-17 21:14] LABS: Glucose Point of Care 305 mg/dl (65-105)
[2024-02-18] VITALS: PULSE 62
[2024-02-18 01:08] VITALS: BP 146/76; PULSE 62; RESP 18; TEMP 36.9; O2SAT 100
[2024-02-18 04:00] VITALS: PULSE 55
[2024-02-18 04:38] VITALS: BP 140/74; PULSE 58; RESP 18; TEMP 36.5; O2SAT 97
[2024-02-18 05:51] LABS: Alanine Aminotransferase 28 U/L (6-50); Albumin Level 3.7 g/dL (3.5-5.1); Alkaline Phosphatase 99 U/L (38-126); Anion Gap 11 mmol/L (4-12); Aspartate Amino Transferase 46 U/L (17-59); Bilirubin,Total 0.4 mg/dL (0.2-1.3); Blood Urea Nitrogen 68 mg/dL (9-20); Calcium 8.8 mg/dL (8.4-10.2); Carbon Dioxide 24 mmol/L (22-30); Chloride 98 mmol/L (98-107); Estimated CRCL calculation 13 ml/min; Estimated Glomerular Filt Rate 7; Glucose 103 mg/dL (65-110); Magnesium 2.4 mg/dL (1.6-2.3); Sodium 133 mmol/L (137-145)
[2024-02-18 05:52] LABS: INR 3.3; Prothrombin Time 33.6 Seconds (11.1-14.7)
[2024-02-18 05:55] LABS: Hematocrit 31.2 % (42.0-52.0); Hemoglobin 10.1 g/dL (14.0-18.0); Mean Corpuscular HGB Conc 32.4 g/dl (32-36); Mean Corpuscular Hemoglobin 29.5 pg (26-34); Mean Corpuscular Volume 91.2 fl (80-100); Mean Platelet Volume 10.7 fl (7.4-10.4); Platelet Count Result 195 k/mm3 (150-375); Red Blood Count 3.42 M/mm3 (4.6-6.20); Red Cell Distribution Width 14.8 % (11.5-14.5); White Blood Count 4.9 K/mm3 (4.5-10.0)
[2024-02-18] MEDS: LEVOTHYROXINE SODIUM 25 MCG TABLET PO (05:57)
[2024-02-18 07:25] VITALS: O2SAT 99
[2024-02-18 07:45] VITALS: BP 137/65; PULSE 62; RESP 18; TEMP 36.7
[2024-02-18 08:38] LABS: Glucose Point of Care 98 mg/dl (65-105)
[2024-02-18] MEDS: gemfibroziL 600 MG TABLET PO (08:58)
[2024-02-18] MEDS: ATORVASTATIN 40 MG TABLET 80 MG PO (08:58)
[2024-02-18] MEDS: TORSEMIDE 20 MG TABLET 100 MG PO (08:58)
[2024-02-18] MEDS: calcitrioL 0.25 MCG CAPSULE PO (08:59)
[2024-02-18] MEDS: MICONAZOLE NITRATE 2% CREAM 30 GM TUBE 1 APPLIC TOPICAL (08:59)
[2024-02-18] MEDS: PANTOPRAZOLE 40 MG TABLET PO (08:59)
[2024-02-18] MEDS: LORATADINE 10 MG TABLET PO (08:59)
[2024-02-18] MEDS: CALCIUM ACETATE 667 MG TABLET PO (08:59)
[2024-02-18] MEDS: EZETIMIBE 10 MG TABLET PO (08:59)
[2024-02-18] MEDS: cycloSPORINE 0.4 ML OPHTH SOLUTION 1 DROP EACH EYE (08:59)
--- NOTE | 2024-02-18 09:38 | PM.DS ---
DS: Admitting Diagnosis Discharge Date February 18, 2024 Admitting Diagnosis DKA DS: Discharge Diagnosis Discharge Diagnosis (1) Type 1 diabetes mellitus: Code(s): E10.9 - Type 1 diabetes mellitus without complications Status: Chronic (2) End stage renal disease: Code(s): N18.6 - End stage renal disease Status: Chronic (3) DKA (diabetic ketoacidosis): Qualifiers: Diabetes mellitus complication detail: without coma Diabetes mellitus type: type 1 Qualified Code(s): E10.10 - Type 1 diabetes mellitus with ketoacidosis without coma Code(s): E11.10 - Type 2 diabetes mellitus with ketoacidosis without coma Status: Acute DS: Summary Hospital Course Hospital Course: 53-year-old male with a PMH diabetes type 1, CABG x3, aortic pump, ESRD on PD, anemia of chronic kidney disease, CHF, DVT on warfarin, hypertension, GERD, gout, hyperlipidemia, BEN, paroxysmal AFib, renal osteodystrophy and secondary hyperparathyroidism presents with hyperglycemia, cough for a few weeks productive of dark phlegm and shortness of breath. Admitted on 02/16/2024 to the intensive care unit due to DKA. Etiology of DKA was due to mismanagement of his insulin pump. He reports his blood sugar was in the 70s on 02/14 a day prior to admission. He turned his pump off and then went to sleep. Patient was started on a insulin infusion and his anion gap closed. He was transitioned to a diet and his insulin pump was restarted. His blood sugars were subsequently controlled and on 02/18/2024 the patient is stable for discharge to home. He is aware of why the DKA precipitated and he is adept to managing his insulin pump himself at home. His pump metrics are 1.5 units/hour from 5:00 a.m. to 8:00 p.m, 3 units/hour from 8:00 p.m. to midnight, 3.5 units from midnight to 5:00 a.m. for total 52 units per day. This has been recently decreased by his client analyst. He has a follow-up tomorrow on February 18. He did not have sepsis otherwise, his community-acquired bacterial pneumonia was treated with ceftriaxone and azithromycin. Discharged on another 3 days of Augmentin. Adverse effects, risk and benefits discussed with the patient to which he understands and agrees to the plan. He was also advised to follow with PCP and his order packer or packager to which he agreed. He was full code. Time Spent with Patient Time attestation: Total time spent providing and/or coordinating discharge services: Exam Const: General: comfortable and no acute distress Eyes: Pupils: Equal, round and reactive pupils present Neck: Neck: supple Resp: Effort & Inspection: normal respiratory effort Auscultation: clear to auscultation bilaterally Cardio: Rate: regular rate Rhythm: regular rhythm GI: GI Palp: Yes Soft to palpation and No Tenderness to palpation present (GI) Extrem: General: no edema DS: Data Data Completed and Pending Labs on day of discharge: Labs from last 24 hours 02/18/24 02/18/24 02/17/24 08:34 05:19 21:05 WBC 4.9 RBC 3.42 L Hgb 10.1 L Hct 31.2 L MCV 91.2 MCH 29.5 MCHC 32.4 RDW 14.8 H Plt Count 195 MPV 10.7 H PT 33.6 H INR 3.3 Sodium 133 L Potassium 4.0 Chloride 98 Carbon Dioxide 24 Anion Gap 11 BUN 68 H Creatinine 7.70 H Estim Creat Clear Calc 13 Estimated GFR 7 L Glucose 103 POC Capillary Glucose 98 305 H Calcium 8.8 Magnesium 2.4 H Total Bilirubin 0.4 AST 46 ALT 28 Alkaline Phosphatase 99 Total Protein 7.0 Albumin 3.7 Influenza A (RT-PCR) Influenza B (RT-PCR) RSV (RT-PCR) SARS-CoV-2 RNA (RT-PCR) 02/17/24 02/17/24 02/17/24 16:31 16:15 11:35 WBC RBC Hgb Hct MCV MCH MCHC RDW Plt Count MPV PT INR Sodium Potassium Chloride Carbon Dioxide Anion Gap BUN Creatinine Estim Creat Clear Calc Estimated GFR Glucose POC Capi
--- NOTE | 2024-02-23 13:30 | PCCDE ---
02/23/24 Called pt since unable to see him during this admission. Was seen at previous admission. Denies questions or concerns re: his DM for me. Is aware of temporary hold on basal rate. Discussed for future option. FJ
== END 2024-02-18 11:45 | disposition home or self-care (01) | DRG 637 ==
LOC: ANHED 15:35 → ANHICU 15:44 → ANH3MED 02-17 18:14
PROVIDERS: Emergency Medicine; Internal Medicine; Internal Medicine Nephrology; Student in an Organized Health Care Education/Training Program; Admitting Provider General Practice; Emergency Provider Emergency Medicine; PCP Family Medicine; Visit Provider General Practice
DX: E10.10 Type 1 diabetes mellitus with ketoacidosis without coma (principal); J15.9 Unspecified bacterial pneumonia; N18.6 End stage renal disease; N25.81 Secondary hyperparathyroidism of renal origin; I13.2 Hypertensive heart and chronic kidney disease with heart failure and with stage 5 chronic kidney disease, or end stage renal disease; Z20.822 Contact with and (suspected) exposure to COVID-19; E78.5 Hyperlipidemia, unspecified; E10.22 Type 1 diabetes mellitus with diabetic chronic kidney disease; E10.42 Type 1 diabetes mellitus with diabetic polyneuropathy; I25.10 Atherosclerotic heart disease of native coronary artery without angina pectoris; G47.33 Obstructive sleep apnea (adult) (pediatric); I48.0 Paroxysmal atrial fibrillation; E10.319 Type 1 diabetes mellitus with unspecified diabetic retinopathy without macular edema; D63.1 Anemia in chronic kidney disease; M19.90 Unspecified osteoarthritis, unspecified site; K21.9 Gastro-esophageal reflux disease without esophagitis; F41.9 Anxiety disorder, unspecified; E10.65 Type 1 diabetes mellitus with hyperglycemia; Z95.1 Presence of aortocoronary bypass graft; Z79.01 Long term (current) use of anticoagulants; Z86.718 Personal history of other venous thrombosis and embolism; Z99.2 Dependence on renal dialysis; Z95.5 Presence of coronary angioplasty implant and graft; Z90.49 Acquired absence of other specified parts of digestive tract; Z96.1 Presence of intraocular lens; Z98.42 Cataract extraction status, left eye; Z98.41 Cataract extraction status, right eye; Z96.41 Presence of insulin pump (external) (internal)
CPT/HCPCS: 36415; 36600; 71045; 80048; 80053; 81001; 82010; 82805; 82947; 82948; 83735; 84100; 84145; 85025; 85027; 85610; 86706; 87040; 87340; 87637; 87641; 90945; 96360; 96361; 99291; A9270; J0456; J0696; J1815; J7030

== ENCOUNTER 2024-02-21 16:12 | Outpatient (CLI) | payer MEDICARE, MEDICAID, SELFPAY ==
[2024-02-21 16:54] LABS: INR 1.6; Prothrombin Time 20.1 Seconds (11.1-14.7)
== END 2024-02-21 16:13 | disposition home or self-care (01) ==
LOC: ANHLAB 16:15
PROVIDERS: PCP Family Medicine; Visit Provider Internal Medicine Cardiovascular Disease
DX: Z79.01 Long term (current) use of anticoagulants (principal)
CPT/HCPCS: 36415; 85610

== ENCOUNTER 2024-02-26 10:57 | Inpatient (IN) | payer MEDICARE, MEDICAID, SELFPAY ==
[2024-02-26] VITALS (28 sets, daily range): BP systolic 119–179; BP diastolic 48–136; PULSE 65–78; RESP 12–23; TEMP 37–37.4; O2SAT 93–100
--- NOTE | ~2024-02-26 | XR_ITS ---
Right Knee Technique: AP and lateral views were obtained. Clinical History: Pain Findings: No fracture or dislocation is seen. Osseous alignment is anatomic. Joint spaces are preserv ed without degenerative or erosive change. Soft tissues are unremarkable. No joint effusion is seen. Impression: Unremarkable right knee radiographs. Reviewed, dictated and finalized at location . Impression: Unremarkable right knee radiographs.
--- NOTE | ~2024-02-26 | XR_ITS ---
Left Knee Technique: AP and lateral views were obtained. Clinical History: Pain Findings: No fracture or dislocation is seen. Osseous alignment is anatomic. Joint spaces are preserv ed without degenerative or erosive change. Soft tissues are unremarkable. No joint effusion is seen. Impression: Unremarkable left knee radiographs. Reviewed, dictated and finalized at location . Impression: Unremarkable left knee radiographs.
--- NOTE | ~2024-02-26 | US_ITS ---
EXAMINATION: US abdomen complete DATE: 02/28/2024 14:52 INDICATION: Pancytopenia. TECHNIQUE: Multiple grayscale and Doppler ultrasound images of the abdomen were obtained. COMPARISON: Ultrasound 06/03/2022, chest CT FINDINGS: The visualized portions of the head and body of the pancreas are normal. The liver is mario l without focal lesion. There is normal flow in main portal vein. The gallbladder is contracted and c ontains a gallstone. The common duct is normal and measures 4 mm. Inferior vena cava is normal. The v isualized portions of abdominal aorta is normal in caliber. The kidneys are normal in size. There is mild splenomegaly measuring 13.3 cm. There is a left pleural effusion. IMPRESSION: 1. Mild splenomegaly. 2. Cholelithiasis. 3. Left pleural effusion. Reviewed, dictated and finalized at location E.
--- NOTE | ~2024-02-26 | CT_ITS ---
EXAMINATION:CT diagnostic chest wo con DATE: 02/26/2024 14:31 INDICATION: Chronic cough. Nausea. TECHNIQUE: Computed tomography (CT) of the chest was performed without intravenous contrast. Automate d exposure control and iterative reconstruction technique were employed. The dose-length product (DLP ) was 890.60 mGy-cm. COMPARISON: Chest CT 01/26/2021, CT abdomen and pelvis 06/02/2022 FINDINGS: There are scattered part-solid nodules in all lobes. There is mild atelectasis bilaterally. There is a small left pleural effusion. Cardiomegaly is noted. There are coronary artery calcificati ons. There are changes of coronary bypass grafting. There is mild mediastinal lymphadenopathy, likely reactive. There is a small volume of perihepatic ascites. There are gallstones in the gallbladder wh ich is normal in size. There is moderate thoracic spondylosis. There are endplate erosions at multipl e levels, worst at T6-T7. IMPRESSION: 1. Scattered part-solid pulmonary nodules in all lobes, most likely pneumonia. 2. Small left pleural effusion. 3. 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 4. Small volume of ascites. Reviewed, dictated and finalized at location E. IMPRESSION: 1. Scattered part-solid pulmonary nodules in all lobes, most likely pneumonia. 2. Small left pleural effusion. 3. 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 4. Small volume of ascites.
--- NOTE | ~2024-02-26 | XR_ITS ---
XR abdomen/kub 1V Ordering provider: Domo Chavez MD History: . Hyperglycemia FREQUENT FALLS NAUSEA SOB/COUGH NOTED . Comparison: None. FINDINGS: BOWEL: Nonobstructive bowel gas pattern. ORGANOMEGALY: None. SIGNIFICANT PATHOLOGIC CALCIFICATIONS: Left renal calcification suggestive of stones. OTHER: No free air is seen under the diaphragm. Degenerative changes of the spine. IMPRESSION: NO ACUTE ABDOMINAL FINDINGS. Highly suggestive left renal stones. Reviewed, dictated and finalized at location A.
--- NOTE | ~2024-02-26 | US_ITS ---
EXAMINATION: US venous doppler [facility] DATE: 02/28/2024 17:03 INDICATION: Lower limb edema. TECHNIQUE: Grayscale ultrasound images without and with compression and Doppler ultrasound images of the bilateral lower extremity veins were obtained. COMPARISON: Ultrasound 10/26/2022 FINDINGS: The visualized portions of right common femoral vein, profunda (deep) femoral vein, femoral vein, pop liteal vein, peroneal veins, posterior tibial veins, and greater saphenous vein outflow are patent. T here is a 6.2 x 2.0 x 2.5 cm cyst in medial right thigh. The visualized portions of left common femoral vein, profunda femoral vein, femoral vein, popliteal v ein, peroneal veins, posterior tibial veins, and greater saphenous vein outflow are patent. IMPRESSION: 1. No deep venous thrombosis. 2. 6.2 cm cyst in the medial right thigh, which may be a chronic hematoma. Reviewed, dictated and finalized at location E.
[2024-02-26 12:05] LABS: Glucose Point of Care > 500 mg/dl (65-105)
[2024-02-26 12:07] LABS: Basophils Percent Auto 0.5 % (0.2-1.2); Eosinophils Percent Auto 0.5 % (0-4.4); Hematocrit 29.9 % (42.0-52.0); Hemoglobin 10.3 g/dL (14.0-18.0); Lymphocytes Absolute Auto 0.51 K/mm3 (0.9-3.2); Lymphocytes Percent Auto 23.5 % (18.3-44.2); Mean Corpuscular HGB Conc 34.4 g/dl (32-36); Mean Corpuscular Hemoglobin 29.5 pg (26-34); Mean Corpuscular Volume 85.7 fl (80-100); Mean Platelet Volume 10.3 fl (7.4-10.4); Monocytes Absolute Auto 0.4 K/mm3 (0.1-0.6); Monocytes Percent Auto 18.4 % (2.6-8.5); Neutrophils Absolute Auto 1.2 K/mm3 (1.3-6.7); Neutrophils Percent Auto 57.1 % (45.5-73.1); Platelet Count Result 127 k/mm3 (150-375); Red Blood Count 3.49 M/mm3 (4.6-6.20); White Blood Count 2.2 K/mm3 (4.5-10.0)
[2024-02-26] MEDS: SODIUM CHLORIDE 0.9% IV 1,000 ML 999 ML IV CONT ×4 (12:08→14:50)
[2024-02-26 12:21] LABS: Alanine Aminotransferase 40 U/L (6-50); Albumin Level 3.4 g/dL (3.5-5.1); Alkaline Phosphatase 107 U/L (38-126); Anion Gap 16 mmol/L (4-12); Aspartate Amino Transferase 65 U/L (17-59); Bilirubin,Total 0.7 mg/dL (0.2-1.3); Blood Urea Nitrogen 57 mg/dL (9-20); Calcium 8.5 mg/dL (8.4-10.2); Carbon Dioxide 25 mmol/L (22-30); Chloride 87 mmol/L (98-107); Estimated CRCL calculation 16 ml/min; Estimated Glomerular Filt Rate 9; Glucose 564 mg/dL (65-110); Potassium 3.4 mmol/L (3.4-5.0); Sodium 128 mmol/L (137-145)
--- NOTE | 2024-02-26 12:22 | ED.RECABL ---
HPI - Recheck/Abnormal Lab/Rx General Chief Complaint: Recheck/Abnormal Lab/Rx Stated Complaint: mult. falls Time Seen by Provider: 02/26/24 12:07 Source: patient History of Present Illness HPI narrative: Patient is 53 years old white male history of type 1 diabetes, end-stage renal disorder, on peritoneal dialysis, history of DKA, CABG, aortic pump, anemia secondary to chronic renal failure, CHF, deep vein thrombosis on Coumadin, hypertension, acid reflux, gout, hyperlipidemia, obstructive sleep apnea, paroxysmal AFib, renal osteodystrophy and secondary hyperparathyroidism presents with hyperglycemia, cough 4 months. Blood glucose on arrival 545 Related Data Home Medications Medication Instructions Recorded Confirmed calcitriol 0.25 mcg capsule 0.25 mcg PO QAM 06/04/19 02/16/24 ergocalciferol (vitamin D2) 1,250 50,000 unit PO WEEKLY 06/04/19 02/16/24 mcg (50,000 unit) capsule (Vitamin D2) nitroglycerin 0.4 mg sublingual 0.4 mg sublingual Q5-15M PRN Chest 06/04/19 02/16/24 tablet Pain ezetimibe 10 mg tablet (Zetia) 10 mg PO DAILY 09/09/19 02/16/24 cetirizine 10 mg tablet (All Day 10 mg PO DAILY 12/26/19 02/16/24 Allergy (cetirizine)) famotidine 40 mg tablet 40 mg PO HS 03/31/20 02/16/24 atorvastatin 80 mg tablet 80 mg PO DAILY 11/26/20 02/16/24 colchicine 0.6 mg tablet (Colcrys) 0.6 mg PO QMWF 11/26/20 02/16/24 metoprolol succinate 50 mg 25 mg PO HS 05/20/23 02/16/24 tablet,extended release 24 hr potassium chloride 20 mEq 20 meq PO DAILY PRN Cramps 05/20/23 02/16/24 tablet,extended release cyclosporine 0.05 % eye drops in a 1 drp EACH EYE BID 07/25/23 02/16/24 dropperette (Restasis) febuxostat 40 mg tablet 40 mg PO QPM 07/25/23 02/16/24 gemfibrozil 600 mg tablet 600 mg PO BID 07/25/23 02/16/24 linaclotide 72 mcg capsule 72 mcg PO DAILY PRN Diarrhea 07/25/23 02/16/24 (Linzess) calcium acetate(phosphat bind) 667 667 mg PO QID 10/09/23 02/16/24 mg capsule omeprazole 20 mg capsule,delayed 20 mg PO DAILY 10/09/23 02/16/24 release cephalexin 500 mg capsule 500 mg PO Q12H 02/16/24 02/16/24 icosapent ethyl 1 gram capsule 1 g PO BID 02/16/24 02/16/24 (Vascepa) insulin pump cart,automated,BT 02/16/24 02/16/24 (Omnipod 5 G6 Pods (Gen 5) subcutaneous cartridge) levothyroxine 25 mcg tablet 25 mcg PO DAILY 02/16/24 02/16/24 torsemide 100 mg tablet 100 mg PO DAILY 02/16/24 02/16/24 warfarin 3 mg tablet 1.5 mg PO TUTH 02/16/24 02/16/24 warfarin 3 mg tablet 3 mg PO QMWFSU 02/16/24 02/16/24 Allergies Allergy/AdvReac Type Severity Reaction Status Date / Time allopurinol Allergy Severe Other Verified 02/16/24 16:51 iodine Allergy Severe Rash Verified 02/16/24 16:51 iohexol Allergy Severe Difficulty Verified 02/16/24 16:51 [From CONTRAST - CT, XRAY] Breathing ticagrelor Allergy Intermediate Rash Verified 02/16/24 16:51 Review of Systems Review of Systems: All systems reviewed & are unremarkable except as noted in HPI and below PMFSH Past Medical History Medical History Anemia in chronic kidney disease Anxiety Arthritis Chronic anticoagulation Congestive heart failure Echocardiogram May 2017 EF of 50% with hypokinetic apical, inferior and basal inferior lateral segment, mild enlargement of left atrium. Coronary artery disease With history of several stents. 05/2022 Complex procedure at [place] w/ stenting of a heavly calcified CX on OM using shockwave tx, Impella. Followed by Dr. Ortega at [facility]. Deep venous thrombosis Chronic right popliteal DVT. Diabetic peripheral neuropathy Diabetic retinopathy Elevated LFTs End-stage renal disease on peritoneal dialysis Essential hypertension Gastroesophageal reflux disease Gout Hyperlipidemia Obstructive sleep apnea With inconsistent CPAP use. Paroxysmal atrial fibrillation Peritoneal dialysis status Renal osteodystrophy Secondary hyperparathyroidism of renal origin Seizure
[2024-02-26] MEDS: INSULIN HUMAN REGULAR (*BKC) 100 UNITS/ML 18 UNITS IV PUSH (12:27)
[2024-02-26 12:36] LABS: Magnesium 1.9 mg/dL (1.6-2.3); Phosphorus 4.3 mg/dL (2.5-4.5)
[2024-02-26 12:43] LABS: Beta-Hydroxybutyrate/Acetoacetate 0.24 mmol/L (0.02-0.27)
[2024-02-26 12:44] LABS: Base Excess ABG -1.8 mEq/l (+/-2.0); Fractional Inspired Oxygen 21 %; PCO2 ABG 38.8 mmHg (35.0-45.0); Total Hemoglobin 10.8 g/dL (12.0-18.0)
[2024-02-26 12:46] LABS: Oxyhemoglobin 37.4 % THb (90.0-100.0); PO2 ABG < 27.0 mmHg (80.0-100.0)
[2024-02-26 12:47] LABS: Modified Allen's Test Pass; Site Drawn LEFT RADIAL
[2024-02-26] MEDS: INSULIN HUMAN REGULAR (*BKC) 100 UNITS in SODIUM CHLORIDE 0.9% IV 99 ML 12 UNITS IV CONT (13:17)
[2024-02-26 13:23] LABS: Glucose Point of Care 421 mg/dl (65-105)
[2024-02-26 13:39] LABS: INR 1.6; Partial Thromboplastin Time 38.9 Seconds (22.3-36.8); Prothrombin Time 19.7 Seconds (11.1-14.7)
[2024-02-26 13:53] LABS: Appearance Urine Clear (Clear); Bacteria Urine None Seen /hpf; Bilirubin Urine Negative (Negative); Blood Urine 2+ (Negative); Color Urine Yellow (Yellow); Glucose Urine UA 3+ mg/dL (Negative); Ketones Urine Negative (Negative); Leukocyte Esterase Ur Negative LEU/UL (Negative); Need Manual Microscopic Reviewed; Nitrate Urine Negative (Negative); Non Pathogenic Casts 0-2; Protein Urine 2+ mg/dL (Negative); RBC Urine 0-2 /hpf (0-2); Squamous Epithelial Cell Urine None Seen /hpf (Few); Urobilinogen Urine 0.2 mg/dL (<2.0); WBC Urine 0-5 /hpf (0-3); pH Urine 5.5 (5.0-9.0)
[2024-02-26 13:54] LABS: Add Urine Microscopic? YES
[2024-02-26] MEDS: SODIUM CHLORIDE 0.9% IV 500 ML 999 ML (14:07)
--- NOTE | 2024-02-26 14:08 | PC.NURSE ---
500ml bag used for remainder of 400ml of fluid bolus. MD suarezayomi. this fluid was used on a pump to only receive the 400ml order. 100ml of the bag wasted.
[2024-02-26 14:11] LABS: Lactic Acid Reflex 4.4 mmol/L (0.7-2.0)
[2024-02-26 14:24] LABS: Glucose Point of Care 298 mg/dl (65-105)
--- NOTE | 2024-02-26 14:51 | PC.NURSE ---
total fluids administered is 2,400ml per provider order. provider notified of glucose trends and VORB requested infusion to be taken down to 3units an hour.
[2024-02-26 14:58] LABS: Glucose Point of Care 235 mg/dl (65-105)
[2024-02-26 15:23] LABS: Glucose Point of Care 193 mg/dl (65-105)
--- NOTE | 2024-02-26 15:28 | PC.NURSE ---
discontinued insulin infusion per CHILO Chavez. last POC glucose was 198
[2024-02-26 15:57] LABS: Glucose Point of Care 191 mg/dl (65-105)
[2024-02-26 16:39] LABS: Glucose Point of Care 206 mg/dl (65-105)
--- NOTE | 2024-02-26 16:39 | PC.NURSE ---
heard patients IV pump beeping when walking by. entered room and patient states it's the [employer] beeping . patient has had episodes of confusion since coming into ER. I asked patient how they feel and they stated sugars feel low . bedside glucose is 206. notified provider and no further orders at this time.
[2024-02-26] MEDS: AZITHROMYCIN 500 MG/NS 250 ML 500 MG/250 ML BAG 250 MG IVPB (16:49)
[2024-02-26 16:56] LABS: Reflex Lactic Acid Yes or No Add Lactic
[2024-02-26] MEDS: ONDANSETRON INJ 4 MG/2 ML VIAL IV PUSH (16:58)
--- NOTE | 2024-02-26 17:26 | PC.NURSE ---
ordered meal tray for patient at 1720. MD WOO stated Q1 hour bedside glucose is discontinued since insulin is discontinued. provider would like updated glucose prior to meals and switch to Sub-Q insulin
[2024-02-26 17:39] LABS: Glucose Point of Care 215 mg/dl (65-105)
[2024-02-26] MEDS: INSULIN HUMAN REGULAR (*BKC) 100 UNITS/ML 6 UNITS SUB-Q (18:18)
[2024-02-26 19:17] LABS: Lactic Acid 1.3 mmol/L (0.7-2.0)
[2024-02-26 22:40] LABS: Hepatitis B Surface Antigen Negative (Negative)
[2024-02-26 23:02] LABS: Hepatitis B Surface Anti Res Positive
[2024-02-27] VITALS (7 sets, daily range): BP systolic 138–156; BP diastolic 56–92; PULSE 67–76; RESP 14–18; TEMP 36.4–37.6; O2SAT 96–99
--- NOTE | 2024-02-27 00:03 | PM.IMHP ---
H&P: HPI History of Present Illness Date/Time: 02/27/24 00:03 Chief Complaint: SOB and cough Narrative: 53 y/o M presents here with hyperglycemia with PMH of DM1, CABG x3, aortic pump, ESRD on PD, anemia in CKD, CHF, CAD, DVT (chronic right popliteal), HTN, GERD, gout, HLD, BEN, pAfib, renal osteodystrophy, and secondary hyperparathyroidism of renal origin. Pt had recently admitted here with DKA and pneumonia states he felt SOB at home and returned to ED feeling SOB with a cough blood glucose also high at 545 on admission. Pt has ESRD on peritoneal HD at home BG down to 206 ketones are negative after 18+6 units of insulin in ED pt has 2400ml of fluids in ED Pt received iv rocephin and azithromycin for PNA coverage labs show pancytopenia, sodium is 128, creat is 6, glucose is 564, hbaic is 7.9 ct scan shows - 1. Scattered part-solid pulmonary nodules in all lobes, most likely pneumonia. 2. Small left pleural effusion. 3. 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 4. Small volume of ascites. Pt is admitted for uncontrolled DM, pancytopenia and CAP Review of Systems Review of Systems: SOB and cough ongoing since DC No other symptoms mentions all other 12 systems reviewed and are negative PMFSH Past Medical History Medical History Anemia in chronic kidney disease Anxiety Arthritis Chronic anticoagulation Congestive heart failure Echocardiogram May 2017 EF of 50% with hypokinetic apical, inferior and basal inferior lateral segment, mild enlargement of left atrium. Coronary artery disease With history of several stents. 05/2022 Complex procedure at [place] w/ stenting of a heavly calcified CX on OM using shockwave tx, Impella. Followed by Dr. Ortega at [facility]. Deep venous thrombosis Chronic right popliteal DVT. Diabetic peripheral neuropathy Diabetic retinopathy Elevated LFTs End-stage renal disease on peritoneal dialysis Essential hypertension Gastroesophageal reflux disease Gout Hyperlipidemia Obstructive sleep apnea With inconsistent CPAP use. Paroxysmal atrial fibrillation Peritoneal dialysis status Renal osteodystrophy Secondary hyperparathyroidism of renal origin Seizure X1 with etiology unknown Type 1 diabetes mellitus Onset around age 13. Surgical History Surgical History History of anterior cruciate ligament surgery (2000) Left knee History of appendectomy (2006) History of arthroscopy of left knee History of bilateral carpal tunnel release Right 05/03/2018. Left 06/02/2018. History of cardiac catheterization 01/21/2021 catheterization at [facility], Dr. Hoover done: Little change from prior catheterization. Patent stents in the RCA and PDA. Previously jailed posterolateral is occluded and development of a 50% stenosis of a branch of om 1. Normal LV function. :August 2019 demonstrated patent stents with 40% stenosis of 1 vessel with no stents or angioplasty performed per patient report. :November 2018 at [facility] - stent x3. :March 2017 demonstrating mild diffuse coronary disease 80% lesion small sub branch of obtuse marginal 1 and 90% stenosis distal RCA into the origin of the PDA with PTCA and stent to the RPDA/distal RCA performed by Dr. Petit. History of cataract extraction With lens implant History of coronary angioplasty with insertion of stent Drug-eluting stents for high-grade OM 99% occlusion 05/2022. History of hernia repair History of open reduction and internal fixation (ORIF) procedure (1982) Left lower extremity fracture. And the right hip pinning when he was in the 8th grade Peritoneal dialysis catheter in place Family History Family History Father , in
[2024-02-27 00:46] LABS: Glucose Point of Care 474 mg/dl (65-105)
--- NOTE | 2024-02-27 00:59 | PC.NURSE ---
Spoke with Dr. Singh about patient blood sugar 474. New order received for Novolog 18 units sub q once.
[2024-02-27] MEDS: INSULIN ASPART (*BKC) 100 UNITS/ML 18 UNITS SUB-Q (01:06)
[2024-02-27 02:23] LABS: Glucose Point of Care 466 mg/dl (65-105)
[2024-02-27 02:52] LABS: INR 1.5; Prothrombin Time 18.3 Seconds (11.1-14.7)
[2024-02-27] MEDS: INSULIN ASPART (*BKC) 100 UNITS/ML 10 UNITS SUB-Q (03:21)
[2024-02-27 03:40] LABS: Alanine Aminotransferase 43 U/L (6-50); Albumin Level 3.3 g/dL (3.5-5.1); Alkaline Phosphatase 96 U/L (38-126); Anion Gap 15 mmol/L (4-12); Aspartate Amino Transferase 83 U/L (17-59); Bilirubin,Total 0.5 mg/dL (0.2-1.3); Blood Urea Nitrogen 52 mg/dL (9-20); Calcium 8.2 mg/dL (8.4-10.2); Carbon Dioxide 22 mmol/L (22-30); Chloride 95 mmol/L (98-107); Estimated CRCL calculation 16 ml/min; Estimated Glomerular Filt Rate 9; Glucose 412 mg/dL (65-110); Potassium 2.9 mmol/L (3.4-5.0); Sodium 132 mmol/L (137-145)
--- NOTE | 2024-02-27 03:58 | PC.NURSE ---
[address] Singh r/t glucose recheck 466 New order received for novolog 10 units sq. and check anion gap. 0355 Reported results of anion gap to Dr. Singh, along with potassium level 2.9. New orders received Lantus 20 units sq once, K-rider 40 meq IVPB once, recheck BMP at 0530.
[2024-02-27] MEDS: INSULIN GLARGINE (*BKC) 100 UNITS/ML 20 UNITS SUB-Q (04:06)
[2024-02-27] MEDS: POTASSIUM CHLORIDE INJ 40 MEQ in SODIUM CHLORIDE 0.9% IV 500 ML 130 MEQ IVPB ×2 (04:07→14:00)
[2024-02-27] MEDS: LEVOTHYROXINE SODIUM 25 MCG TABLET PO (06:25)
[2024-02-27 06:31] LABS: Anion Gap 14 mmol/L (4-12); Blood Urea Nitrogen 51 mg/dL (9-20); Calcium 8.5 mg/dL (8.4-10.2); Carbon Dioxide 24 mmol/L (22-30); Chloride 96 mmol/L (98-107); Estimated CRCL calculation 16 ml/min; Estimated Glomerular Filt Rate 9; Glucose 276 mg/dL (65-110); Sodium 134 mmol/L (137-145)
[2024-02-27 07:34] LABS: Glucose Point of Care 145 mg/dl (65-105)
--- NOTE | 2024-02-27 07:53 | PM.CNNEP ---
Assessment and Plan Assessment and plan (1) End stage renal disease: Code(s): N18.6 - End stage renal disease Status: Chronic Assessment and Plan: End-stage renal disease Pneumonia, acute hypoxemic respiratory failure Type 1 diabetes mellitus with nephropathy Benign essential hypertension with hypertension Anemia chronic kidney disease History of secondary hyperparathyroid History of CABG, systolic heart failure, pulmonary hypertension. History of sleep apnea Neutropenia, thrombocytopenia Plan: -patient has not had neutropenia and thrombocytopenia recently, may have some viral infection -fluid removal as tolerated, see dialysis orders -follow-up for ESRD and related needs -discussed with dialysis staff Plan -will be continued with peritoneal dialysis -on antibiotics -to follow for ESRD and related needs History of Present Illness Reason for Consult Consult date: 02/28/24 Reason for consult: end stage renal disease Requesting physician: Domo Chavez MD Chief Complaint Chief complaint: Diabetic Hyperglycemia/Pneumonia/Peritoneal Dialys History of Present Illness Narrative: 53-year-old male known to me, type 1 diabetes mellitus with nephropathy and end-stage renal disease on hemodialysis. Recently was hospitalized with hyperglycemia. Discharge no presents with pneumonia, respiratory failure and hyperglycemia. We are asked to see him for his ongoing renal failure needs. Consulted yesterday evening and dialysis, peritoneal, was arranged. Labs as noted. CT scan shows pulmonary nodules consistent with pneumonia and renal osteodystrophy changes. Patient usually uses insulin pump. When seen stated that he does not feel well, coughing, some production of sputum, dark in color, no blood, no pleuritic chest pains. Denies fevers and chills. There is some recent swelling. He is supposed to use CPAP but occasionally misses. Review of Systems Review of Systems: Rest of review of systems negative [facility] Past Medical History Medical History Anemia in chronic kidney disease Anxiety Arthritis Chronic anticoagulation Congestive heart failure Echocardiogram May 2017 EF of 50% with hypokinetic apical, inferior and basal inferior lateral segment, mild enlargement of left atrium. Coronary artery disease With history of several stents. 05/2022 Complex procedure at [place] w/ stenting of a heavly calcified CX on OM using shockwave tx, Impella. Followed by Dr. Ortega at [facility]. Deep venous thrombosis Chronic right popliteal DVT. Diabetic peripheral neuropathy Diabetic retinopathy Elevated LFTs End-stage renal disease on peritoneal dialysis Essential hypertension Gastroesophageal reflux disease Gout Hyperlipidemia Obstructive sleep apnea With inconsistent CPAP use. Paroxysmal atrial fibrillation Peritoneal dialysis status Renal osteodystrophy Secondary hyperparathyroidism of renal origin Seizure X1 with etiology unknown Type 1 diabetes mellitus Onset around age 13. Surgical History Surgical History History of anterior cruciate ligament surgery (2000) Left knee History of appendectomy (2006) History of arthroscopy of left knee History of bilateral carpal tunnel release Right 05/03/2018. Left 06/02/2018. History of cardiac catheterization 01/21/2021 catheterization at [facility], Dr. Hoover done: Little change from prior catheterization. Patent stents in the RCA and PDA. Previously jailed posterolateral is occluded and development of a 50% stenosis of a branch of om 1. Normal LV function. :August 2019 demonstrated patent stents with 40% stenosis of 1 vessel with no stents or angioplasty performed per patient report. :November 2018 at [facility] - stent x3. :March 2017 demonstrating mild diffuse coronary disease 80% lesion small sub branch o
[2024-02-27] MEDS: ATORVASTATIN 40 MG TABLET 80 MG PO (08:47)
[2024-02-27] MEDS: POTASSIUM CHLORIDE 20 MEQ ER TABLET PO (08:47)
[2024-02-27] MEDS: EZETIMIBE 10 MG TABLET PO (08:47)
[2024-02-27] MEDS: ACETAMINOPHEN 325 MG TABLET 650 MG PO (08:47)
[2024-02-27] MEDS: calcitrioL 0.25 MCG CAPSULE PO (08:47)
[2024-02-27 11:35] LABS: Glucose Point of Care 261 mg/dl (65-105)
[2024-02-27] MEDS: TORSEMIDE 20 MG TABLET 100 MG PO (12:25)
[2024-02-27] MEDS: CALCIUM ACETATE 667 MG TABLET PO ×3 (12:26→20:52)
[2024-02-27] MEDS: INSULIN ASPART (*BKC) 100 UNITS/ML SUB-Q ×2 (12:28→18:43)
--- NOTE | 2024-02-27 13:15 | P.PNCROSS_ITS ---
Event Note Event Note Event Note: Patient had been seen by previous provider same day. I followed up with patient who was alert and oriented at time of assessment sitting on the side of the bed getting ready to work with PT. Patient had been admitted with hyperglycemia >500 and possible pneumonia, however patient had just been discharged 8 days ago with diagnosis of PNA and was treated with azithromycin/Rocephin/and discharge for 3 more days of Augmentin to at this time discontinued antibiotic use but dis tant staph culture patient has had a normal WBC. Patient has had poor management and control of his blood sugars had a recent insulin pump placed and has been hospitalized multiple times since for DKA. Patient was given multiple units of insulin in the ED and on the medical floor, last glucose was 261. When I spoke to the patient about his insulin pump he reported to me that it was likely out of insulin, add a long acting daily while insulin pump is off inpatient with SS. nephrology consulted to follow for patient peritoneal dialysis. Patient will need HH at discharge has a caregiver but will need to also have HH.
[2024-02-27 14:59] LABS: Basophils Percent Auto 0.5 % (0.2-1.2); Eosinophils Percent Auto 1.9 % (0-4.4); Hematocrit 30.5 % (42.0-52.0); Hemoglobin 10.2 g/dL (14.0-18.0); Immature Granulocyte Absolute 0.01 K/mm3 (0.00-0.031); Immature Granulocyte Percent A 0.5 % (0-0.5); Lymphocytes Absolute Auto 0.64 K/mm3 (0.9-3.2); Lymphocytes Percent Auto 31.1 % (18.3-44.2); Mean Corpuscular HGB Conc 33.4 g/dl (32-36); Mean Corpuscular Hemoglobin 29.8 pg (26-34); Mean Corpuscular Volume 89.2 fl (80-100); Mean Platelet Volume 10.6 fl (7.4-10.4); Monocytes Absolute Auto 0.3 K/mm3 (0.1-0.6); Platelet Count Result 119 k/mm3 (150-375); Red Blood Count 3.42 M/mm3 (4.6-6.20); Red Cell Distribution Width 14.4 % (11.5-14.5); White Blood Count 2.1 K/mm3 (4.5-10.0)
[2024-02-27 15:11] LABS: INR 1.5; Prothrombin Time 18.1 Seconds (11.1-14.7)
[2024-02-27 15:12] LABS: Partial Thromboplastin Time 32.7 Seconds (22.3-36.8)
[2024-02-27] MEDS: WARFARIN (*PBKC) 3 MG TABLET PO ×2 (16:19)
[2024-02-27] MEDS: HEPARIN SOD/D5W 100 UNITS/ML 25,000 UNITS/250 ML BAG 10 UNITS IV CONT ×2 (16:45→23:15)
[2024-02-27] MEDS: HEPARIN SODIUM 5,000 UNITS/ML VIAL 4000 UNITS IV PUSH (16:45)
[2024-02-27 16:46] LABS: Glucose Point of Care 377 mg/dl (65-105)
[2024-02-27 20:36] LABS: Glucose Point of Care 494 mg/dl (65-105)
[2024-02-27] MEDS: METOPROLOL SUCCINATE EXT REL 25 MG TABCR PO (20:52)
[2024-02-27] MEDS: FAMOTIDINE 20 MG TABLET 40 MG PO (20:52)
[2024-02-27] MEDS: INSULIN ASPART (*BKC) 100 UNITS/ML 8 UNITS SUB-Q (20:52)
[2024-02-27] MEDS: INSULIN GLARGINE (*BKC) 100 UNITS/ML 25 UNITS SUB-Q (20:53)
[2024-02-27] MEDS: HYDROcodone/acetaminophen (*CRX) 5-325 MG TABLET 1 TAB PO (20:53)
[2024-02-27 21:53] LABS: Glucose Point of Care 401 mg/dl (65-105)
[2024-02-27 22:15] LABS: MRSA (PCR) NOT DETECTED (NOT DETECTE)
[2024-02-27 22:58] LABS: Mean Platelet Volume 10.6 fl (7.4-10.4); Platelet Count Result 123 k/mm3 (150-375)
[2024-02-27 23:12] LABS: Partial Thromboplastin Time 78.9 Seconds (22.3-36.8)
[2024-02-28] VITALS (10 sets, daily range): BP systolic 132–167; BP diastolic 54–71; PULSE 56–68; RESP 16–20; TEMP 36.2–37.1; O2SAT 95–100; BMI 40.7
[2024-02-28 01:08] LABS: Glucose Point of Care 351 mg/dl (65-105)
[2024-02-28] MEDS: HYDROcodone/acetaminophen (*CRX) 5-325 MG TABLET 1 TAB PO ×2 (05:27→20:44)
[2024-02-28] MEDS: LEVOTHYROXINE SODIUM 25 MCG TABLET PO (05:28)
[2024-02-28 07:00] LABS: INR 1.4; Partial Thromboplastin Time 72.9 Seconds (22.3-36.8); Prothrombin Time 17.9 Seconds (11.1-14.7)
[2024-02-28 07:04] LABS: Anion Gap 12 mmol/L (4-12); Blood Urea Nitrogen 51 mg/dL (9-20); Calcium 8.5 mg/dL (8.4-10.2); Carbon Dioxide 26 mmol/L (22-30); Chloride 95 mmol/L (98-107); Estimated CRCL calculation 16 ml/min; Estimated Glomerular Filt Rate 9; Glucose 319 mg/dL (65-110); Potassium 3.3 mmol/L (3.4-5.0); Sodium 133 mmol/L (137-145)
[2024-02-28 07:11] LABS: Basophils Percent Auto 0.5 % (0.2-1.2); Eosinophils Absolute Auto 0.1 K/mm3 (0-0.3); Eosinophils Percent Auto 4.7 % (0-4.4); Immature Granulocyte Absolute 0.02 K/mm3 (0.00-0.031); Lymphocytes Percent Auto 46.9 % (18.3-44.2); Mean Corpuscular HGB Conc 32.4 g/dl (32-36); Mean Corpuscular Hemoglobin 29.3 pg (26-34); Mean Corpuscular Volume 90.4 fl (80-100); Mean Platelet Volume 11.7 fl (7.4-10.4); Monocytes Absolute Auto 0.3 K/mm3 (0.1-0.6); Monocytes Percent Auto 15.1 % (2.6-8.5); Neutrophils Absolute Auto 0.6 K/mm3 (1.3-6.7); Neutrophils Percent Auto 31.8 % (45.5-73.1); Platelet Count Result 120 k/mm3 (150-375); Red Blood Count 3.76 M/mm3 (4.6-6.20); Red Cell Distribution Width 14.6 % (11.5-14.5)
[2024-02-28 07:43] LABS: White Blood Count 1.9 K/mm3 (4.5-10.0)
[2024-02-28] MEDS: INSULIN ASPART (*BKC) 100 UNITS/ML SUB-Q ×4 (08:13→20:45)
[2024-02-28] MEDS: TORSEMIDE 20 MG TABLET 100 MG PO (08:16)
[2024-02-28] MEDS: EZETIMIBE 10 MG TABLET PO (08:17)
[2024-02-28] MEDS: CALCIUM ACETATE 667 MG TABLET PO ×3 (08:17→20:44)
[2024-02-28] MEDS: calcitrioL 0.25 MCG CAPSULE PO (08:17)
[2024-02-28] MEDS: POTASSIUM CHLORIDE 20 MEQ ER TABLET PO (08:18)
[2024-02-28] MEDS: ATORVASTATIN 40 MG TABLET 80 MG PO (08:18)
[2024-02-28] MEDS: COLCHICINE 0.6 MG TABLET PO (08:22)
[2024-02-28 08:23] LABS: Glucose Point of Care 275 mg/dl (65-105)
--- NOTE | 2024-02-28 09:28 | PM.PNNEP ---
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 Peritoneal dialysis carried out last night, supervised: 1173 mL of fluid ultrafiltered Exam Narrative: Vital signs as noted, Well-developed well-nourished, more comfortable with breathing at rest, looks better today, no pallor, no icterus, moist oral mucosa, no cyanosis, JVD negative, regular distant, diminished breath sounds, rubs wheeze, soft nontender abdomen, edema plus, alert oriented x3, no tremors Objective Data Vital Signs Vital Signs: Vital Signs - 24 hr 02/27/24 12:00 02/27/24 13:14 02/27/24 16:00 Temperature 36.6 C 36.4 C Pulse Rate 71 67 Respiratory Rate 16 16 Blood Pressure 149/59 H 138/56 L Pulse Oximetry 99 99 Oxygen Delivery Room Air Fraction of Inspired Oxygen 02/27/24 20:00 02/27/24 20:52 02/28/24 00:00 Temperature 37.6 C H 36.7 C Pulse Rate 69 74 58 L Respiratory Rate 18 16 Blood Pressure 156/65 H 140/61 Pulse Oximetry 98 95 Oxygen Delivery Fraction of Inspired Oxygen 02/28/24 04:00 02/28/24 06:30 02/28/24 08:14 Temperature 36.5 C 36.5 C Pulse Rate 56 L 56 L Respiratory Rate 16 16 Blood Pressure 145/63 H 145/63 H Pulse Oximetry 99 95 Oxygen Delivery Room Air Fraction of Inspired Oxygen 21 02/28/24 08:00 Temperature 36.2 C L Pulse Rate 60 Respiratory Rate 20 Blood Pressure 132/68 Pulse Oximetry 100 Oxygen Delivery Fraction of Inspired Oxygen Intake/Output Intake/Output: Intake & Output 02/25/24 02/26/24 02/27/24 02/28/24 23:59 23:59 23:59 23:59 Intake Total 4301.0 1665 78 Output Total 2270 3833 Balance 4301.0 -767 -8623 Meds/Results Medications: Active Medications Generic Name Dose Route Start Last Admin Trade Name Freq PRN Reason Stop Dose Admin Acetaminophen 650 mg 02/26/24 15:32 02/27/24 08:47 Acetaminophen 325 Mg Tablet PO 650 mg Q4H PRN Administration Mild Pain (1-3) or Fever Hydrocodone Bitart/Acetaminophen 1 tab 02/27/24 00:28 02/28/24 05:27 Hydrocodone/Acetaminophen (*Crx) 5-325 Mg Tablet PO 1 tab Q6H PRN Administration Pain Rated 4-6 Albuterol 1 puff 02/27/24 00:29 Albuterol Sulfate (*Sp) Aerosol 1 Puff INHALATION Q6HRT PRN shortness of breath or wheezing Atorvastatin Calcium 80 mg 02/27/24 09:00 02/28/24 08:18 Atorvastatin 40 Mg Tablet PO 80 mg DAILY ASHLEY Administration Calcitriol 0.25 mcg 02/27/24 09:00 02/28/24 08:17 Calcitriol 0.25 Mcg Capsule PO 0.25 mcg QAM ASHLEY Administration Calcium Acetate 667 mg 02/27/24 09:00 02/28/24 08:17 Calcium Acetate 667 Mg Tablet PO 667 mg QID ASHLEY Administration Colchicine 0.6 mg 02/28/24 09:00 02/28/24 08:22 Colchicine 0.6 Mg Tablet PO 0.6 mg [id number] ASHLEY Administration Dextrose 12.5 gm 02/27/24 00:25 Dextrose 50% 25 Gm/50 Ml Syringe IV PUSH PRN PRN Hypoglycemia Protocol Ezetimibe 10 mg 02/27/24 09:00 02/28/24 08:17 Ezetimibe 10 Mg Tablet PO 10 mg DAILY ASHLEY Administration Famotidine 40 mg 02/27/24 21:00 02/27/24 20:52 Famotidine 20 Mg Tablet PO 40 mg HS ASHLEY Admini
--- NOTE | 2024-02-28 09:34 | P.PNIM_ITS ---
Progress Note: A&P Assessment and Plan (1) Pneumonia: Code(s): J18.9 - Pneumonia, unspecified organism Status: Acute Assessment and Plan: patient presented with complaints of shortness of breath, productive sputum. Recently discharged after treatment of community acquired pneumonia. * on room air, no oxygen requirements at present * CPAP at night * MRSA negative * Blood and sputum cultures pending * Initially received Rocephin and azithromycin. Recent hospitalization with pneumonia treatment. Hold on antibiotics for now and follow sputum culture. * albuterol Q 6 hour prn (2) Patient on peritoneal dialysis: Code(s): Z99.2 - Dependence on renal dialysis Status: Acute Assessment and Plan: ESRD with PD dialysis * nephrology consulted, recs appreciated * 1173 mL of fluid ultrafiltered 02/26 * daily BMP * avoid nephrotoxic medications and renally dose medications (3) Leukopenia: Code(s): D72.819 - Decreased white blood cell count, unspecified Status: Acute Assessment and Plan: Pancytopenia on labs * ANC 0.6% * Reverse isolation ordered * Hematology consulted, rec's appreciated (4) Hyperglycemia due to diabetes mellitus: Code(s): E11.65 - Type 2 diabetes mellitus with hyperglycemia Status: Acute Assessment and Plan: Blood glucose on admission > 500, AG 16, beta-hydrox 0.24 * Lantus 25 units. Will increase dose today given persistent hyperglycemia. * SSI high dose, adding novolog 4 units with meal * Discussed with DM educator who mentioned patient may benefit from bedtime dose of regular insulin 20 units as he has high fasting glucose after PD dialysis. Dialysate likely has high glucose content which could be contributing. Will add HS sliding scale and see how his am glucose lands. * Fasting glucose was 319 * motor installer consulted, recs appreciated * normally on insulin pump, currently on hold (5) Chronic anticoagulation: Code(s): Z79.01 - terminal clerk (current) use of anticoagulants Status: Acute Assessment and Plan: On Coumadin for mechanical heart valve. Recent NSTEMI 09/2023 requiring transfer to [facility] for cardiothoracic surgery consultation. * INR subtherapeutic * On heparin gtt, PTT Q 6 hours until two therapeutic reads, then daily * Coumadin at 3 mg daily * Patient has received 6 mg of Coumadin yesterday and INR decreased this morning. Discussed with pharmacy and will give another 1 x dose of 3 mg tonight. Plan Feeding: diabetic diet Analgesia:tylenol Thromboembolic prophylaxis: heparin gtt Lines: PD catheter, PIV Antibiotics: none at this time Disposition: Here with shortness of breath and hyperglycemia with new pancytopenia. Nephrology, Hematology consults. Patient is from home and anticipate him discharging back home. Advance Care Plan I have confirmed that the patient's Advanced Care Plan is present, code status is documented, or surrogate decision maker is listed in patient medical record.: Yes Medication Reconciliation I have utilized all available resources to obtain, update and review the patients current medications (includes all prescriptions, OTC, herbals, cannabis, and nutritional supplements).: Yes Subjective Date/time seen: 02/28/24 09:34 Interval history: 53 y/o M presents here with hyperglycemia with PMH of DM1, CABG x3, aortic pump, ESRD on PD, anemia in CKD, CHF, CAD, DVT (chronic right popliteal), HTN, GERD, gout, HLD, BEN, pAfib, renal osteodystrophy, and secondary hyperparathy
--- NOTE | 2024-02-28 09:34 | PM.IMPN ---
Progress Note: A&P Assessment and Plan (1) Pneumonia: Code(s): J18.9 - Pneumonia, unspecified organism Status: Acute Assessment and Plan: patient presented with complaints of shortness of breath, productive sputum. Recently discharged after treatment of community acquired pneumonia. on room air, no oxygen requirements at present CPAP at night MRSA negative Blood and sputum cultures pending Initially received Rocephin and azithromycin. Recent hospitalization with pneumonia treatment. Hold on antibiotics for now and follow sputum culture. albuterol Q 6 hour prn (2) Patient on peritoneal dialysis: Code(s): Z99.2 - Dependence on renal dialysis Status: Acute Assessment and Plan: ESRD with PD dialysis nephrology consulted, recs appreciated 1173 mL of fluid ultrafiltered 02/26 daily BMP avoid nephrotoxic medications and renally dose medications (3) Leukopenia: Code(s): D72.819 - Decreased white blood cell count, unspecified Status: Acute Assessment and Plan: Pancytopenia on labs ANC 0.6% Reverse isolation ordered Hematology consulted, rec's appreciated (4) Hyperglycemia due to diabetes mellitus: Code(s): E11.65 - Type 2 diabetes mellitus with hyperglycemia Status: Acute Assessment and Plan: Blood glucose on admission > 500, AG 16, beta-hydrox 0.24 Lantus 25 units. Will increase dose today given persistent hyperglycemia. SSI high dose, adding novolog 4 units with meal Discussed with DM educator who mentioned patient may benefit from bedtime dose of regular insulin 20 units as he has high fasting glucose after PD dialysis. Dialysate likely has high glucose content which could be contributing. Will add HS sliding scale and see how his am glucose lands. Fasting glucose was 319 groundskeeping yardman consulted, recs appreciated normally on insulin pump, currently on hold (5) Chronic anticoagulation: Code(s): Z79.01 - penitentiary (current) use of anticoagulants Status: Acute Assessment and Plan: On Coumadin for mechanical heart valve. Recent NSTEMI 09/2023 requiring transfer to [facility] for cardiothoracic surgery consultation. INR subtherapeutic On heparin gtt, PTT Q 6 hours until two therapeutic reads, then daily Coumadin at 3 mg daily Patient has received 6 mg of Coumadin yesterday and INR decreased this morning. Discussed with pharmacy and will give another 1 x dose of 3 mg tonight. Plan Feeding: diabetic diet Analgesia:tylenol Thromboembolic prophylaxis: heparin gtt Lines: PD catheter, PIV Antibiotics: none at this time Disposition: Here with shortness of breath and hyperglycemia with new pancytopenia. Nephrology, Hematology consults. Patient is from home and anticipate him discharging back home. Advance Care Plan I have confirmed that the patient's Advanced Care Plan is present, code status is documented, or surrogate decision maker is listed in patient medical record.: Yes Medication Reconciliation I have utilized all available resources to obtain, update and review the patients current medications (includes all prescriptions, OTC, herbals, cannabis, and nutritional supplements).: Yes Subjective Date/time seen: 02/28/24 09:34 Interval history: 53 y/o M presents here with hyperglycemia with PMH of DM1, CABG x3, aortic pump, ESRD on PD, anemia in CKD, CHF, CAD, DVT (chronic right popliteal), HTN, GERD, gout, HLD, BEN, pAfib, renal osteodystrophy, and secondary hyperparathyroidism of renal origin. 02/27: Patient is seen sitting up in the chair in no acute distress. He reports some shortness of breath with exertion and lying flat. He has musculoskeletal chest wall pain with deep inspiration which he feels is from his most recent admission when he was having severe vomiting from DKA. He states that he has a productive sputum which he reports is black in color. He also reports subjective
--- NOTE | 2024-02-28 10:23 | PDONCCN ---
HPI - Date of Consult Date/Time: 02/28/24 18:44 <Fernando Schmid - 02/28/24 18:47> 02/28/24 10:23 <Josefina Rodríguez - 02/28/24 10:33> Requesting Physician: Nona Diaz APRN <Fernando Schmid - 02/28/24 18:47> Nona Diaz APRN <Josefina Rodríguez - 02/28/24 10:33> Primary Care Provider: Aditya Castro, <Fernando Schmid - 02/28/24 18:47> Aditya Castro, <Josefina Rodríguez - 02/28/24 10:33> - Consult Narrative Reason for consult: Pancytopenia <Josefina Rodríguez - 02/28/24 10:33> Narrative: Juvenal Daigle Jr. is a 53 year old male <Fernando Schmid - 02/28/24 18:47> Juvenal Daigle Jr. is a 53 year old male with a past medical history of DM1, CABG, ESRD, CHF, CKD, DVT, HTN, HLD, BEN, gout, anemia who was admitted for elevated blood sugars >500 and PNA. He was recently found to be pancytopenic as well. He receives daily dialysis with Mircera and as needed iron infusions for his anemia. Cr today 6.50. Hgb today was 11.0. His low WBC is a new finding down to 1.9 ANC 600. He denies any frequent infections, but has recently been hospitalized for PNA and treated with antibiotics. Per my chart review, there is intermittent low WBC dating back to 2019. His platelets are also low to 120,000. This also dates back to early ~2022 as a new finding. Patient denies any bleeding or excessive bruising. Denies any excessive etoh use. Denies any weight loss, fever, chills, or night sweats. <Josefina Rodríguez - 02/28/24 12:54> Review of Systems - Review of Systems All systems reviewed & are unremarkable except as noted in HPI and bel <Josefina oRdríguez - 02/28/24 10:33> REPLACED BY [facility] Medical History: Medical History (Last Reviewed 02/27/24 @ 00:12 by Ana Maria Singh MD) Anemia in chronic kidney disease Anxiety Arthritis Chronic anticoagulation Congestive heart failure Echocardiogram May 2017 EF of 50% with hypokinetic apical, inferior and basal inferior lateral segment, mild enlargement of left atrium. Coronary artery disease With history of several stents. 05/[address] [facility]/ stenting of a heavly calcified CX on OM using shockwave tx, Impella. Followed by Dr. Ortega at [facility]. Deep venous thrombosis Chronic right popliteal DVT. Diabetic peripheral neuropathy Diabetic retinopathy Elevated LFTs End-stage renal disease on peritoneal dialysis Essential hypertension Gastroesophageal reflux disease Gout Hyperlipidemia Obstructive sleep apnea With inconsistent CPAP use. Paroxysmal atrial fibrillation Peritoneal dialysis status Renal osteodystrophy Secondary hyperparathyroidism of renal origin Seizure X1 with etiology unknown Type 1 diabetes mellitus Onset around age 13. <Fernando Schmid - 02/28/24 18:47> Medical History (Last Reviewed 02/27/24 @ 00:12 by Ana Maria Singh MD) Anemia in chronic kidney disease Anxiety Arthritis Chronic anticoagulation Congestive heart failure Echocardiogram May 2017 EF of 50% with hypokinetic apical, inferior and basal inferior lateral segment, mild enlargement of left atrium. Coronary artery disease With history of several stents. 05/[address] [facility]/ stenting of a heavly calcified CX on OM using shockwave tx, Impella. Followed by Dr. Ortega at [facility]. Deep venous thrombosis Chronic right popliteal DVT. Diabetic peripheral neuropathy Diabetic retinopathy Elevated LFTs End-stage renal disease on peritoneal dialysis Essential hypertension Gastroesophageal reflux disease Gout Hyperlipidemia Obstructive sleep apnea With inconsistent CPAP use. Paroxysmal atrial fibrillation Peritoneal dialysis status Renal osteodystrophy Secondary hyperparathyroidism of renal origin Seizure X1 with etiology unknown Type 1 diabetes mellitus Onset around age 13. <Josefina Rodríguez - 02/28/24 10:33> Surgical History: Surgical H
[2024-02-28 11:37] LABS: Iron 43 ug/dL (49-181)
[2024-02-28 11:52] LABS: Percent Iron Saturation 22 % (20-50)
[2024-02-28 12:01] LABS: Glucose Point of Care 287 mg/dl (65-105)
[2024-02-28 12:42] LABS: Folic Acid 6.2 ng/mL (2.76->20)
[2024-02-28 13:06] LABS: Mean Platelet Volume 11.1 fl (7.4-10.4); Platelet Count Result 124 k/mm3 (150-375)
[2024-02-28 13:22] LABS: Partial Thromboplastin Time 67.8 Seconds (22.3-36.8)
[2024-02-28] MEDS: HEPARIN SODIUM 5,000 UNITS/ML VIAL 3500 UNITS IV PUSH (13:50)
[2024-02-28] MEDS: HEPARIN SOD/D5W 100 UNITS/ML 25,000 UNITS/250 ML BAG 12 UNITS IV CONT ×2 (13:52→17:14)
[2024-02-28 13:53] LABS: Hemoglobin A1C 11.8 % (<5.7)
[2024-02-28 16:56] LABS: Glucose Point of Care 170 mg/dl (65-105)
[2024-02-28] MEDS: WARFARIN (*PBKC) 3 MG TABLET PO ×2 (17:20)
[2024-02-28] MEDS: FERROUS SULFATE 325 MG TABLET DR PO (17:20)
[2024-02-28 19:28] LABS: Partial Thromboplastin Time 103.6 Seconds (22.3-36.8)
[2024-02-28 19:34] LABS: NT Pro B Type Natriuretic Pept > 30000 pg/mL (19.9-100)
[2024-02-28 20:18] LABS: Glucose Point of Care 287 mg/dl (65-105)
[2024-02-28] MEDS: FILGRASTIM-SNDZ 480 MCG/0.8 ML SYRINGE SUB-Q (20:44)
[2024-02-28] MEDS: METOPROLOL SUCCINATE EXT REL 25 MG TABCR PO (20:44)
[2024-02-28] MEDS: FAMOTIDINE 20 MG TABLET 40 MG PO (20:45)
[2024-02-28] MEDS: INSULIN GLARGINE (*BKC) 100 UNITS/ML 32 UNITS SUB-Q (20:46)
[2024-02-29] VITALS (10 sets, daily range): BP systolic 138–163; BP diastolic 51–66; PULSE 54–76; RESP 16–20; TEMP 36.4–37.3; O2SAT 96–100
[2024-02-29 01:59] LABS: Mean Platelet Volume 11.1 fl (7.4-10.4); Platelet Count Result 124 k/mm3 (150-375)
[2024-02-29 02:12] LABS: Partial Thromboplastin Time 122.3 Seconds (22.3-36.8)
[2024-02-29] MEDS: LEVOTHYROXINE SODIUM 25 MCG TABLET PO (06:05)
[2024-02-29 06:39] LABS: Alanine Aminotransferase 84 U/L (6-50); Albumin Level 3.3 g/dL (3.5-5.1); Alkaline Phosphatase 178 U/L (38-126); Anion Gap 11 mmol/L (4-12); Aspartate Amino Transferase 188 U/L (17-59); Bilirubin,Total 0.5 mg/dL (0.2-1.3); Blood Urea Nitrogen 50 mg/dL (9-20); Calcium 8.4 mg/dL (8.4-10.2); Carbon Dioxide 28 mmol/L (22-30); Chloride 96 mmol/L (98-107); Estimated CRCL calculation 15 ml/min; Estimated Glomerular Filt Rate 8; Glucose 190 mg/dL (65-110); Potassium 3.4 mmol/L (3.4-5.0); Sodium 135 mmol/L (137-145)
[2024-02-29 06:41] LABS: INR 1.7; Prothrombin Time 20.4 Seconds (11.1-14.7)
--- NOTE | 2024-02-29 08:11 | P.PNIM_ITS ---
Progress Note: A&P Assessment and Plan (1) Leukopenia: Code(s): D72.819 - Decreased white blood cell count, unspecified Status: Acute Assessment and Plan: Pancytopenia on labs * ANC 0.6% * Reverse isolation ordered * Hematology consulted. Iron studies and B12 were ordered. B12 is normal. Patient was started on low-dose ferrous sulfate. SHAWN pending, platelet antibody pending. * Right upper quadrant ultrasound shows mild splenomegaly, cholelithiasis, and left pleural effusion * Neupogen was started by Hematology. White blood cells are 8.9 today, platelets 144. (2) Pneumonia: Code(s): J18.9 - Pneumonia, unspecified organism Status: Acute Assessment and Plan: patient presented with complaints of shortness of breath, productive sputum. Recently discharged after treatment of community acquired pneumonia. * on room air, no oxygen requirements at present * CPAP at night * MRSA negative * Blood and sputum cultures pending * Initially received Rocephin and azithromycin. Recent hospitalization with pneumonia treatment. Hold on antibiotics for now and follow sputum culture. * albuterol Q 6 hour prn * Breathing continues to improve without antibiotics. (3) Patient on peritoneal dialysis: Code(s): Z99.2 - Dependence on renal dialysis Status: Acute Assessment and Plan: ESRD with PD dialysis * nephrology consulted, recs appreciated * 1173 mL of fluid ultrafiltered 02/26 * daily BMP * avoid nephrotoxic medications and renally dose medications (4) Hyperglycemia due to diabetes mellitus: Code(s): E11.65 - Type 2 diabetes mellitus with hyperglycemia Status: Acute Assessment and Plan: Blood glucose on admission > 500, AG 16, beta-hydrox 0.24, hgb A1C 11.8% * Lantus 25 units. Will increase dose today given persistent hyperglycemia. * SSI high dose, adding Novolog 4 units with meal * Discussed with DM educator who mentioned patient may benefit from bedtime dose of regular insulin 20 units as he has high fasting glucose after PD dialysis. Dialysate likely has high glucose content which could be contributing. Will add HS sliding scale and see how his am glucose lands. * Fasting glucose improved at 190 after starting night time NovoLog coverage. * parent educator consulted, recs appreciated * normally on insulin pump, currently on hold (5) Chronic anticoagulation: Code(s): Z79.01 - long term (current) use of anticoagulants Status: Acute Assessment and Plan: On Coumadin for mechanical heart valve. Recent NSTEMI 09/2023 requiring transfer to [facility] for cardiothoracic surgery consultation. * INR subtherapeutic * On heparin gtt, PTT Q 6 hours until two therapeutic reads, then daily * Coumadin at 3 mg daily * Patient has received 6 mg of Coumadin yesterday and INR 1.7 today. Continue with 3 mg today. Plan Feeding: diabetic diet Analgesia:tylenol Thromboembolic prophylaxis: heparin gtt ---> Coumadin 3 mg Lines: PD catheter, PIV Antibiotics: none at this time Disposition: Here with shortness of breath and hyperglycemia with new pancytopenia. Nephrology, Hematology consults. INR 1.7 today. Continue heparin gtt. Will be ready to discharge home when INR theraputic. Patient is from home and anticipate him discharging back home. Advance Care Plan I have confirmed that the patient's Advanced Care Plan is present, code status is documented, or surrogate decision maker is listed in patient medical record.: Yes Medication Reconciliation I have utilized
--- NOTE | 2024-02-29 08:11 | PM.IMPN ---
Progress Note: A&P Assessment and Plan (1) Leukopenia: Code(s): D72.819 - Decreased white blood cell count, unspecified Status: Acute Assessment and Plan: Pancytopenia on labs ANC 0.6% Reverse isolation ordered Hematology consulted. Iron studies and B12 were ordered. B12 is normal. Patient was started on low-dose ferrous sulfate. SHAWN pending, platelet antibody pending. Right upper quadrant ultrasound shows mild splenomegaly, cholelithiasis, and left pleural effusion Neupogen was started by Hematology. White blood cells are 8.9 today, platelets 144. (2) Pneumonia: Code(s): J18.9 - Pneumonia, unspecified organism Status: Acute Assessment and Plan: patient presented with complaints of shortness of breath, productive sputum. Recently discharged after treatment of community acquired pneumonia. on room air, no oxygen requirements at present CPAP at night MRSA negative Blood and sputum cultures pending Initially received Rocephin and azithromycin. Recent hospitalization with pneumonia treatment. Hold on antibiotics for now and follow sputum culture. albuterol Q 6 hour prn Breathing continues to improve without antibiotics. (3) Patient on peritoneal dialysis: Code(s): Z99.2 - Dependence on renal dialysis Status: Acute Assessment and Plan: ESRD with PD dialysis nephrology consulted, recs appreciated 1173 mL of fluid ultrafiltered 02/26 daily BMP avoid nephrotoxic medications and renally dose medications (4) Hyperglycemia due to diabetes mellitus: Code(s): E11.65 - Type 2 diabetes mellitus with hyperglycemia Status: Acute Assessment and Plan: Blood glucose on admission > 500, AG 16, beta-hydrox 0.24, hgb A1C 11.8% Lantus 25 units. Will increase dose today given persistent hyperglycemia. SSI high dose, adding Novolog 4 units with meal Discussed with DM educator who mentioned patient may benefit from bedtime dose of regular insulin 20 units as he has high fasting glucose after PD dialysis. Dialysate likely has high glucose content which could be contributing. Will add HS sliding scale and see how his am glucose lands. Fasting glucose improved at 190 after starting night time NovoLog coverage. rn diabetes educator consulted, recs appreciated normally on insulin pump, currently on hold (5) Chronic anticoagulation: Code(s): Z79.01 - assistant terminal manager (current) use of anticoagulants Status: Acute Assessment and Plan: On Coumadin for mechanical heart valve. Recent NSTEMI 09/2023 requiring transfer to [facility] for cardiothoracic surgery consultation. INR subtherapeutic On heparin gtt, PTT Q 6 hours until two therapeutic reads, then daily Coumadin at 3 mg daily Patient has received 6 mg of Coumadin yesterday and INR 1.7 today. Continue with 3 mg today. Plan Feeding: diabetic diet Analgesia:tylenol Thromboembolic prophylaxis: heparin gtt ---> Coumadin 3 mg Lines: PD catheter, PIV Antibiotics: none at this time Disposition: Here with shortness of breath and hyperglycemia with new pancytopenia. Nephrology, Hematology consults. INR 1.7 today. Continue heparin gtt. Will be ready to discharge home when INR theraputic. Patient is from home and anticipate him discharging back home. Advance Care Plan I have confirmed that the patient's Advanced Care Plan is present, code status is documented, or surrogate decision maker is listed in patient medical record.: Yes Medication Reconciliation I have utilized all available resources to obtain, update and review the patients current medications (includes all prescriptions, OTC, herbals, cannabis, and nutritional supplements).: Yes Subjective Date/time seen: 02/29/24 08:11 Interval history: 53 y/o M presents here with hyperglycemia with PMH of DM1, CABG x3, aortic pump, ESRD on PD, anemia in CKD, CHF, CAD, DVT (chronic right popliteal), HTN, GERD, gout, HLD, BEN
[2024-02-29 08:20] LABS: Glucose Point of Care 191 mg/dl (65-105)
[2024-02-29] MEDS: INSULIN ASPART (*BKC) 100 UNITS/ML SUB-Q ×4 (08:36→20:35)
[2024-02-29 08:37] LABS: Hematocrit 34.1 % (42.0-52.0); Mean Corpuscular HGB Conc 32.3 g/dl (32-36); Mean Corpuscular Hemoglobin 29.1 pg (26-34); Mean Corpuscular Volume 90.2 fl (80-100); Mean Platelet Volume 11.5 fl (7.4-10.4); Platelet Count Result 144 k/mm3 (150-375); Red Blood Count 3.78 M/mm3 (4.6-6.20); Red Cell Distribution Width 14.5 % (11.5-14.5); White Blood Count 8.9 K/mm3 (4.5-10.0)
[2024-02-29] MEDS: ATORVASTATIN 40 MG TABLET 80 MG PO (08:38)
[2024-02-29] MEDS: CALCIUM ACETATE 667 MG TABLET PO ×4 (08:38→20:32)
[2024-02-29] MEDS: FILGRASTIM-SNDZ 480 MCG/0.8 ML SYRINGE SUB-Q (08:38)
[2024-02-29] MEDS: EZETIMIBE 10 MG TABLET PO (08:38)
[2024-02-29] MEDS: FERROUS SULFATE 325 MG TABLET DR PO ×2 (08:39→16:50)
[2024-02-29] MEDS: calcitrioL 0.25 MCG CAPSULE PO (08:39)
[2024-02-29] MEDS: POTASSIUM CHLORIDE 20 MEQ ER TABLET PO (08:39)
[2024-02-29] MEDS: TORSEMIDE 20 MG TABLET 100 MG PO (08:39)
[2024-02-29 08:51] LABS: Partial Thromboplastin Time 77.6 Seconds (22.3-36.8)
--- NOTE | 2024-02-29 10:46 | PM.PNNEP ---
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 Vital signs stable, edema present, maintain same treatment plan Review of Systems Review of Systems: Patient is. Is now in reverse isolation due to low white count. No fever. No nausea vomiting. Breathing is better. There is some lower extremity swelling. Exam Narrative: Vital signs as noted, Well-developed well-nourished, more comfortable with breathing at rest, looks better today, no pallor, no icterus, moist oral mucosa, no cyanosis, JVD negative, regular distant, diminished breath sounds, rubs wheeze, soft nontender abdomen, edema plus, alert oriented x3, no tremors Objective Data Vital Signs Vital Signs: Vital Signs - 24 hr 02/28/24 12:00 02/28/24 16:00 02/28/24 20:00 Temperature 36.5 C 36.4 C 37.1 C Pulse Rate 61 68 63 Respiratory Rate 20 20 20 Blood Pressure 138/54 L 167/71 H 138/59 L Pulse Oximetry 100 99 99 02/28/24 20:44 02/29/24 00:00 02/28/24 22:00 Temperature 36.6 C Pulse Rate 62 54 L Respiratory Rate 16 Blood Pressure 138/66 Pulse Oximetry 100 97 02/29/24 02:10 02/29/24 04:00 02/29/24 06:46 Temperature 36.6 C 36.6 C Pulse Rate 68 68 Respiratory Rate 16 16 Blood Pressure 138/51 L 138/51 L Pulse Oximetry 98 98 02/29/24 08:00 Temperature 37.1 C Pulse Rate 71 Respiratory Rate 17 Blood Pressure 141/61 H Pulse Oximetry 100 Intake/Output Intake/Output: Intake & Output 02/26/24 02/27/24 02/28/24 02/29/24 23:59 23:59 23:59 23:59 Intake Total 4301.0 1665 313.8 648.0 Output Total 1946 9722 2050 Balance 4301.0 -279 -2209.2 -1410.0 Meds/Results Medications: Active Medications Generic Name Dose Route Start Last Admin Trade Name Freq PRN Reason Stop Dose Admin Acetaminophen 650 mg 02/26/24 15:32 02/27/24 08:47 Acetaminophen 325 Mg Tablet PO 650 mg Q4H PRN Administration Mild Pain (1-3) or Fever Hydrocodone Bitart/Acetaminophen 1 tab 02/27/24 00:28 02/28/24 20:44 Hydrocodone/Acetaminophen (*Crx) 5-325 Mg Tablet PO 1 tab Q6H PRN Administration Pain Rated 4-6 Albuterol 1 puff 02/27/24 00:29 Albuterol Sulfate (*Sp) Aerosol 1 Puff INHALATION Q6HRT PRN shortness of breath or wheezing Atorvastatin Calcium 80 mg 02/27/24 09:00 02/29/24 08:38 Atorvastatin 40 Mg Tablet PO 80 mg DAILY ASHLEY Administration Calcitriol 0.25 mcg 02/27/24 09:00 02/29/24 08:39 Calcitriol 0.25 Mcg Capsule PO 0.25 mcg QAM ASHLEY Administration Calcium Acetate 667 mg 02/27/24 09:00 02/29/24 08:38 Calcium Acetate 667 Mg Tablet PO 667 mg QID ASHLEY Administration Colchicine 0.6 mg 02/28/24 09:00 02/28/24 08:22 Colchicine 0.6 Mg Tablet PO 0.6 mg [id number] ASHLEY Administration Dextrose 12.5 gm 02/27/24 00:25 Dextrose 50% 25 Gm/50 Ml Syringe IV PUSH PRN PRN Hypoglycemia Protocol Ezetimibe 10 mg 02/27/24 09:00 02/29/24 08:38 Ezetimibe 10 Mg Tablet PO 10 mg DAILY ASHLEY Administration Famotidine 40 mg 02/27/24 21:00 07
[2024-02-29 11:43] LABS: Glucose Point of Care 151 mg/dl (65-105)
[2024-02-29 14:45] LABS: Partial Thromboplastin Time 67.7 Seconds (22.3-36.8)
[2024-02-29] MEDS: HEPARIN SOD/D5W 100 UNITS/ML 25,000 UNITS/250 ML BAG 12 UNITS IV CONT (14:52)
[2024-02-29] MEDS: HEPARIN SODIUM 5,000 UNITS/ML VIAL 3500 UNITS IV PUSH (14:59)
[2024-02-29 16:04] LABS: Glucose Point of Care 158 mg/dl (65-105)
[2024-02-29] MEDS: WARFARIN (*PBKC) 3 MG TABLET PO (16:50)
[2024-02-29] MEDS: FAMOTIDINE 20 MG TABLET 40 MG PO (20:32)
[2024-02-29] MEDS: METOPROLOL SUCCINATE EXT REL 25 MG TABCR PO (20:32)
[2024-02-29] MEDS: INSULIN GLARGINE (*BKC) 100 UNITS/ML 32 UNITS SUB-Q (20:35)
[2024-02-29 20:41] LABS: Glucose Point of Care 279 mg/dl (65-105)
[2024-02-29 21:07] LABS: Partial Thromboplastin Time > 200.0 Seconds (22.3-36.8)
[2024-03-01] VITALS: BP 147/61; PULSE 61; RESP 18; TEMP 36.9; O2SAT 96
[2024-03-01 03:00] VITALS: O2SAT 97
[2024-03-01 04:00] VITALS: BP 160/65; PULSE 70; RESP 20; TEMP 36.2; O2SAT 99
[2024-03-01 04:32] LABS: Hematocrit 32.3 % (42.0-52.0); Hemoglobin 10.8 g/dL (14.0-18.0); Mean Corpuscular HGB Conc 33.4 g/dl (32-36); Mean Corpuscular Hemoglobin 29.9 pg (26-34); Mean Corpuscular Volume 89.5 fl (80-100); Mean Platelet Volume 10.4 fl (7.4-10.4); Platelet Count Result 177 k/mm3 (150-375); Platelet Count Result 184 k/mm3 (150-375); Red Blood Count 3.61 M/mm3 (4.6-6.20); Red Cell Distribution Width 14.5 % (11.5-14.5); White Blood Count 13.7 K/mm3 (4.5-10.0)
[2024-03-01 04:42] LABS: Alanine Aminotransferase 77 U/L (6-50); Albumin Level 3.2 g/dL (3.5-5.1); Alkaline Phosphatase 201 U/L (38-126); Anion Gap 9 mmol/L (4-12); Aspartate Amino Transferase 165 U/L (17-59); Bilirubin,Total 0.5 mg/dL (0.2-1.3); Blood Urea Nitrogen 48 mg/dL (9-20); Calcium 8.5 mg/dL (8.4-10.2); Carbon Dioxide 28 mmol/L (22-30); Chloride 98 mmol/L (98-107); Estimated CRCL calculation 16 ml/min; Estimated Glomerular Filt Rate 9; Glucose 175 mg/dL (65-110); Potassium 3.4 mmol/L (3.4-5.0); Sodium 135 mmol/L (137-145)
[2024-03-01 04:47] LABS: INR 2.2; Prothrombin Time 24.5 Seconds (11.1-14.7)
[2024-03-01 04:49] LABS: Partial Thromboplastin Time 88.8 Seconds (22.3-36.8)
[2024-03-01 04:53] LABS: Total Cells Counted 100
[2024-03-01 04:54] LABS: Lymphocytes Absolute Manual 1.23 K/mm3 (1.1-4.5); Lymphocytes Percent Manual 9 % (18-44); Monocytes Absolute Manual 0.54 K/mm3 (0.1-0.90); Monocytes Percent Manual 4 % (3-9); Neutrophils Percent Manual 72 % (46-73)
[2024-03-01 04:55] LABS: Band Neutrophils Percent 14 % (0-6); Eosinophils Absolute Manual 0.13 K/mm3 (0.02-0.50); Eosinophils Percent Manual 1 % (0-4); Neutrophils Absolute Manual 11.78 K/mm3 (1.3-6.7); Platelet Estimate Adequate (Adequate)
[2024-03-01 04:56] LABS: Hypochromasia 1+; Large Platelets Present; Ovalocytes 1+; Schistocytes None Seen
[2024-03-01] MEDS: LEVOTHYROXINE SODIUM 25 MCG TABLET PO (05:58)
[2024-03-01 07:06] VITALS: BP 160/55; PULSE 70; RESP 20; TEMP 36.2
[2024-03-01 08:00] VITALS: BP 147/76; PULSE 80; RESP 17; TEMP 36.3; O2SAT 96
[2024-03-01 08:16] LABS: Glucose Point of Care 171 mg/dl (65-105)
--- NOTE | 2024-03-01 08:46 | P.PNIM_ITS ---
Progress Note: A&P Assessment and Plan (1) Leukopenia: Code(s): D72.819 - Decreased white blood cell count, unspecified Status: Acute Assessment and Plan: Pancytopenia on labs * ANC 0.6% * Reverse isolation ordered * Hematology consulted. Iron studies and B12 were ordered. B12 is normal. Patient was started on low-dose ferrous sulfate. SHAWN pending, platelet antibody pending. * Right upper quadrant ultrasound shows mild splenomegaly, cholelithiasis, and left pleural effusion * Neupogen was started by Hematology. White blood cells are 8.9 today, platelets 144. (2) Pneumonia: Code(s): J18.9 - Pneumonia, unspecified organism Status: Acute Assessment and Plan: patient presented with complaints of shortness of breath, productive sputum. Recently discharged after treatment of community acquired pneumonia. * on room air, no oxygen requirements at present * CPAP at night * MRSA negative * Blood and sputum cultures pending * Initially received Rocephin and azithromycin. Recent hospitalization with pneumonia treatment. Hold on antibiotics for now and follow sputum culture. * albuterol Q 6 hour prn * Breathing continues to improve without antibiotics. (3) Patient on peritoneal dialysis: Code(s): Z99.2 - Dependence on renal dialysis Status: Acute Assessment and Plan: ESRD with PD dialysis * nephrology consulted, recs appreciated * 1173 mL of fluid ultrafiltered 02/26 * daily BMP * avoid nephrotoxic medications and renally dose medications (4) Hyperglycemia due to diabetes mellitus: Code(s): E11.65 - Type 2 diabetes mellitus with hyperglycemia Status: Acute Assessment and Plan: Blood glucose on admission > 500, AG 16, beta-hydrox 0.24, hgb A1C 11.8% * Lantus 25 units. Will increase dose today given persistent hyperglycemia. * SSI high dose, adding Novolog 4 units with meal * Discussed with DM educator who mentioned patient may benefit from bedtime dose of regular insulin 20 units as he has high fasting glucose after PD dialysis. Dialysate likely has high glucose content which could be contributing. Will add HS sliding scale and see how his am glucose lands. * Fasting glucose improved at 190 after starting night time NovoLog coverage. 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 Recent NSTEMI 09/2023 requiring transfer to [facility] for cardiothoracic surgery consultation. * INR subtherapeutic * On heparin gtt, PTT Q 6 hours until two therapeutic reads, then daily * Coumadin at 3 mg daily * Patient has received 6 mg of Coumadin yesterday and INR 1.7 today. Continue with 3 mg today. Plan Feeding: diabetic diet Analgesia:tylenol Thromboembolic prophylaxis: heparin gtt ---> Coumadin 3 mg Lines: PD catheter, PIV Antibiotics: none at this time Disposition: Here with shortness of breath and hyperglycemia with new pancytopenia. Nephrology, Hematology consults. INR 1.7 today. Continue heparin gtt. Will be ready to discharge home when INR theraputic. Patient is from home and anticipate him discharging back home. Advance Care Plan I have confirmed that the patient's Advanced Care Plan is present, code status is documented, or surrogate decision maker is listed in patient medical record.: Yes Medication Reconciliation I have utilized
--- NOTE | 2024-03-01 08:46 | PM.IMPN ---
Progress Note: A&P Assessment and Plan (1) Leukopenia: Code(s): D72.819 - Decreased white blood cell count, unspecified Status: Acute Assessment and Plan: Pancytopenia on labs ANC 0.6% Reverse isolation ordered Hematology consulted. Iron studies and B12 were ordered. B12 is normal. Patient was started on low-dose ferrous sulfate. SHAWN pending, platelet antibody pending. Right upper quadrant ultrasound shows mild splenomegaly, cholelithiasis, and left pleural effusion Neupogen was started by Hematology. White blood cells are 8.9 today, platelets 144. (2) Pneumonia: Code(s): J18.9 - Pneumonia, unspecified organism Status: Acute Assessment and Plan: patient presented with complaints of shortness of breath, productive sputum. Recently discharged after treatment of community acquired pneumonia. on room air, no oxygen requirements at present CPAP at night MRSA negative Blood and sputum cultures pending Initially received Rocephin and azithromycin. Recent hospitalization with pneumonia treatment. Hold on antibiotics for now and follow sputum culture. albuterol Q 6 hour prn Breathing continues to improve without antibiotics. (3) Patient on peritoneal dialysis: Code(s): Z99.2 - Dependence on renal dialysis Status: Acute Assessment and Plan: ESRD with PD dialysis nephrology consulted, recs appreciated 1173 mL of fluid ultrafiltered 02/26 daily BMP avoid nephrotoxic medications and renally dose medications (4) Hyperglycemia due to diabetes mellitus: Code(s): E11.65 - Type 2 diabetes mellitus with hyperglycemia Status: Acute Assessment and Plan: Blood glucose on admission > 500, AG 16, beta-hydrox 0.24, hgb A1C 11.8% Lantus 25 units. Will increase dose today given persistent hyperglycemia. SSI high dose, adding Novolog 4 units with meal Discussed with DM educator who mentioned patient may benefit from bedtime dose of regular insulin 20 units as he has high fasting glucose after PD dialysis. Dialysate likely has high glucose content which could be contributing. Will add HS sliding scale and see how his am glucose lands. Fasting glucose improved at 190 after starting night time NovoLog coverage. medical educator consulted, recs appreciated normally on insulin pump, currently on hold (5) Chronic anticoagulation: Code(s): Z79.01 - terminal supervisor (current) use of anticoagulants Status: Acute Assessment and Plan: On Coumadin for mechanical heart valve. Recent NSTEMI 09/2023 requiring transfer to [facility] for cardiothoracic surgery consultation. INR subtherapeutic On heparin gtt, PTT Q 6 hours until two therapeutic reads, then daily Coumadin at 3 mg daily Patient has received 6 mg of Coumadin yesterday and INR 1.7 today. Continue with 3 mg today. Plan Feeding: diabetic diet Analgesia:tylenol Thromboembolic prophylaxis: heparin gtt ---> Coumadin 3 mg Lines: PD catheter, PIV Antibiotics: none at this time Disposition: Here with shortness of breath and hyperglycemia with new pancytopenia. Nephrology, Hematology consults. INR 1.7 today. Continue heparin gtt. Will be ready to discharge home when INR theraputic. Patient is from home and anticipate him discharging back home. Advance Care Plan I have confirmed that the patient's Advanced Care Plan is present, code status is documented, or surrogate decision maker is listed in patient medical record.: Yes Medication Reconciliation I have utilized all available resources to obtain, update and review the patients current medications (includes all prescriptions, OTC, herbals, cannabis, and nutritional supplements).: Yes Subjective Date/time seen: 03/01/24 08:46 Interval history: 53 y/o M presents here with hyperglycemia with PMH of DM1, CABG x3, aortic pump, ESRD on PD, anemia in CKD, CHF, CAD, DVT (chronic right popliteal), HTN, GERD, gout, HLD, BEN
[2024-03-01] MEDS: CALCIUM ACETATE 667 MG TABLET PO ×2 (09:42→13:20)
[2024-03-01] MEDS: FERROUS SULFATE 325 MG TABLET DR PO (09:42)
[2024-03-01] MEDS: TORSEMIDE 20 MG TABLET 100 MG PO (09:42)
[2024-03-01] MEDS: calcitrioL 0.25 MCG CAPSULE PO (09:43)
[2024-03-01] MEDS: COLCHICINE 0.6 MG TABLET PO (09:43)
[2024-03-01] MEDS: POTASSIUM CHLORIDE 20 MEQ ER TABLET PO (09:43)
[2024-03-01] MEDS: EZETIMIBE 10 MG TABLET PO (09:43)
[2024-03-01] MEDS: ATORVASTATIN 40 MG TABLET 80 MG PO (09:43)
[2024-03-01] MEDS: FILGRASTIM-SNDZ 480 MCG/0.8 ML SYRINGE SUB-Q (09:54)
[2024-03-01 10:25] LABS: Mean Platelet Volume 10.7 fl (7.4-10.4); Platelet Count Result 173 k/mm3 (150-375)
[2024-03-01] MEDS: INSULIN ASPART (*BKC) 100 UNITS/ML SUB-Q ×2 (11:27→11:28)
[2024-03-01 11:42] LABS: Glucose Point of Care 276 mg/dl (65-105)
[2024-03-01 12:00] VITALS: BP 156/58; PULSE 70; RESP 17; TEMP 36.7; O2SAT 100
[2024-03-01] MEDS: guaiFENesin/DEXTROMETHORPHAN 10 ML UDC 5 ML PO (13:15)
--- NOTE | 2024-03-01 16:29 | P.DS_ITS ---
DS: Admitting Diagnosis Discharge Date 03/01 Admitting Diagnosis Fall DS: Discharge Diagnosis Discharge Diagnosis Plan Assessment and Plan (1) Leukopenia: Code(s): D72.819 - Decreased white blood cell count, unspecified Status: Acute Assessment and Plan: Pancytopenia on labs * ANC 0.6% * Reverse isolation ordered * Hematology consulted. Iron studies and B12 were ordered. B12 is normal. Patient was started on low-dose ferrous sulfate. SHAWN pending, platelet antibody pending. * Right upper quadrant ultrasound shows mild splenomegaly, cholelithiasis, and left pleural effusion * Neupogen was started by Hematology. White blood cells are 8.9 today, platelets 144. (2) Pneumonia: Code(s): J18.9 - Pneumonia, unspecified organism Status: Acute Assessment and Plan: patient presented with complaints of shortness of breath, productive sputum. Recently discharged after treatment of community acquired pneumonia. * on room air, no oxygen requirements at present * CPAP at night * MRSA negative * Blood and sputum cultures pending * Initially received Rocephin and azithromycin. Recent hospitalization with pneumonia treatment. Hold on antibiotics for now and follow sputum culture. * albuterol Q 6 hour prn * Breathing continues to improve without antibiotics. (3) Patient on peritoneal dialysis: Code(s): Z99.2 - Dependence on renal dialysis Status: Acute Assessment and Plan: ESRD with PD dialysis * nephrology consulted, recs appreciated * 1173 mL of fluid ultrafiltered 02/26 * daily BMP * avoid nephrotoxic medications and renally dose medications (4) Hyperglycemia due to diabetes mellitus: Code(s): E11.65 - Type 2 diabetes mellitus with hyperglycemia Status: Acute Assessment and Plan: Blood glucose on admission > 500, AG 16, beta-hydrox 0.24, hgb A1C 11.8% * Lantus 25 units. Will increase dose today given persistent hyperglycemia. * SSI high dose, adding Novolog 4 units with meal * Discussed with DM educator who mentioned patient may benefit from bedtime dose of regular insulin 20 units as he has high fasting glucose after PD dialysis. Dialysate likely has high glucose content which could be contributing. Will add HS sliding scale and see how his am glucose lands. * Fasting glucose improved at 190 after starting night time NovoLog coverage. 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 Recent NSTEMI 09/2023 requiring transfer to [facility] for cardiothoracic surgery consultation. * INR subtherapeutic * On heparin gtt, PTT Q 6 hours until two therapeutic reads, then daily * Coumadin at 3 mg daily * Patient has received 6 mg of Coumadin yesterday and INR 1.7 today. Continue with 3 mg today. Plan Feeding: diabetic diet Analgesia:tylenol Thromboembolic prophylaxis: heparin gtt ---> Coumadin 3 mg Lines: PD catheter, PIV Antibiotics: none at this time Disposition: Here with shortness of breath and hyperglycemia with new pancytopenia. Nephrology, Hematology consults. INR 1.7 today. Continue heparin gtt. Will be ready to discharge home when INR theraputic. Patient is from home and anticipate him discharging back home. DS: Summary Hospital Course Reason for hospitalization: Hyperglycemia, fall Hospital Course: 53-year-old gentleman with multiple comorbidit
--- NOTE | 2024-03-01 16:29 | PM.DS ---
DS: Admitting Diagnosis Discharge Date 03/01 Admitting Diagnosis Fall DS: Discharge Diagnosis Discharge Diagnosis Plan Assessment and Plan (1) Leukopenia: Code(s): D72.819 - Decreased white blood cell count, unspecified Status: Acute Assessment and Plan: Pancytopenia on labs ANC 0.6% Reverse isolation ordered Hematology consulted. Iron studies and B12 were ordered. B12 is normal. Patient was started on low-dose ferrous sulfate. SHAWN pending, platelet antibody pending. Right upper quadrant ultrasound shows mild splenomegaly, cholelithiasis, and left pleural effusion Neupogen was started by Hematology. White blood cells are 8.9 today, platelets 144. (2) Pneumonia: Code(s): J18.9 - Pneumonia, unspecified organism Status: Acute Assessment and Plan: patient presented with complaints of shortness of breath, productive sputum. Recently discharged after treatment of community acquired pneumonia. on room air, no oxygen requirements at present CPAP at night MRSA negative Blood and sputum cultures pending Initially received Rocephin and azithromycin. Recent hospitalization with pneumonia treatment. Hold on antibiotics for now and follow sputum culture. albuterol Q 6 hour prn Breathing continues to improve without antibiotics. (3) Patient on peritoneal dialysis: Code(s): Z99.2 - Dependence on renal dialysis Status: Acute Assessment and Plan: ESRD with PD dialysis nephrology consulted, recs appreciated 1173 mL of fluid ultrafiltered 02/26 daily BMP avoid nephrotoxic medications and renally dose medications (4) Hyperglycemia due to diabetes mellitus: Code(s): E11.65 - Type 2 diabetes mellitus with hyperglycemia Status: Acute Assessment and Plan: Blood glucose on admission > 500, AG 16, beta-hydrox 0.24, hgb A1C 11.8% Lantus 25 units. Will increase dose today given persistent hyperglycemia. SSI high dose, adding Novolog 4 units with meal Discussed with DM educator who mentioned patient may benefit from bedtime dose of regular insulin 20 units as he has high fasting glucose after PD dialysis. Dialysate likely has high glucose content which could be contributing. Will add HS sliding scale and see how his am glucose lands. Fasting glucose improved at 190 after starting night time NovoLog coverage. hospice educator consulted, recs appreciated normally on insulin pump, currently on hold (5) Chronic anticoagulation: Code(s): Z79.01 - terminal operator (current) use of anticoagulants Status: Acute Assessment and Plan: On Coumadin for mechanical heart valve. Recent NSTEMI 09/2023 requiring transfer to [facility] for cardiothoracic surgery consultation. INR subtherapeutic On heparin gtt, PTT Q 6 hours until two therapeutic reads, then daily Coumadin at 3 mg daily Patient has received 6 mg of Coumadin yesterday and INR 1.7 today. Continue with 3 mg today. Plan Feeding: diabetic diet Analgesia:tylenol Thromboembolic prophylaxis: heparin gtt ---> Coumadin 3 mg Lines: PD catheter, PIV Antibiotics: none at this time Disposition: Here with shortness of breath and hyperglycemia with new pancytopenia. Nephrology, Hematology consults. INR 1.7 today. Continue heparin gtt. Will be ready to discharge home when INR theraputic. Patient is from home and anticipate him discharging back home. DS: Summary Hospital Course Reason for hospitalization: Hyperglycemia, fall Hospital Course: 53-year-old gentleman with multiple comorbidities who presented with falls from home. He was recently here treated for community-acquired pneumonia. In the ER is found have blood sugars greater than 500 g per dL. He is supposed to be on an insulin pump but his insulin pump was empty and he stated he did not realize that. He is also on Coumadin for a mechanical valve that was placed in September of this year during a three-vessel CABG. His INR was found
[2024-03-04 23:38] LABS: Platelet Antibody, Direct NEGATIVE (NEGATIVE)
[2024-03-08 10:18] LABS: Soluble Transferrin Receptor 1.56 mg/L (0.76-1.76)
== END 2024-03-01 14:12 | disposition home health service (06) | DRG 193 ==
LOC: ANHED 15:32 → ANH3MEDSUR 16:42
PROVIDERS: Emergency Medicine; Family Medicine; Internal Medicine; Internal Medicine Nephrology; Nurse Practitioner Family; Admitting Provider Internal Medicine; Emergency Provider Emergency Medicine; PCP Family Medicine; Visit Provider Nurse Practitioner Acute Care
DX: J18.9 Pneumonia, unspecified organism (principal); J96.01 Acute respiratory failure with hypoxia; N18.6 End stage renal disease; Z95.811 Presence of heart assist device; I13.2 Hypertensive heart and chronic kidney disease with heart failure and with stage 5 chronic kidney disease, or end stage renal disease; D61.818 Other pancytopenia; N25.81 Secondary hyperparathyroidism of renal origin; E10.65 Type 1 diabetes mellitus with hyperglycemia; D69.6 Thrombocytopenia, unspecified; Z99.2 Dependence on renal dialysis; D72.819 Decreased white blood cell count, unspecified; D63.1 Anemia in chronic kidney disease; E10.319 Type 1 diabetes mellitus with unspecified diabetic retinopathy without macular edema; E78.5 Hyperlipidemia, unspecified; E21.3 Hyperparathyroidism, unspecified; E10.42 Type 1 diabetes mellitus with diabetic polyneuropathy; E10.22 Type 1 diabetes mellitus with diabetic chronic kidney disease; G47.33 Obstructive sleep apnea (adult) (pediatric); I50.9 Heart failure, unspecified; I25.10 Atherosclerotic heart disease of native coronary artery without angina pectoris; K21.9 Gastro-esophageal reflux disease without esophagitis; I48.0 Paroxysmal atrial fibrillation; I25.2 Old myocardial infarction; M10.9 Gout, unspecified; M19.90 Unspecified osteoarthritis, unspecified site; M25.562 Pain in left knee; M25.561 Pain in right knee; W19.XXXA Unspecified fall, initial encounter; Z99.89 Dependence on other enabling machines and devices; Z79.85 Long-term (current) use of injectable non-insulin antidiabetic drugs; Z86.718 Personal history of other venous thrombosis and embolism; Z95.1 Presence of aortocoronary bypass graft; Z79.01 Long term (current) use of anticoagulants; Z95.5 Presence of coronary angioplasty implant and graft; Z96.41 Presence of insulin pump (external) (internal)
CPT/HCPCS: 36415; 36600; 71250; 73560; 74018; 76700; 80048; 80053; 81001; 82010; 82607; 82728; 82746; 82805; 82948; 83036; 83540; 83550; 83605; 83735; 83880; 83921; 84100; 84238; 85025; 85027; 85049; 85055; 85610; 85730; 86023; 86038; 86039; 86706; 87040; 87070; 87205; 87340; 87641; 90945; 93970; 96361; 96365; 96367; 96375; 96376; 97110; 97116; 97161; 97165; 97530; 97535; 99285; A9270; G0378; J0456; J0696; J1644; J1815; J2405; J3480; J7030; J7040; Q5101

== ENCOUNTER 2024-05-27 09:25 | Observation (INO) | payer MEDICARE, MEDICAID, SELFPAY ==
[2024-05-27] VITALS (15 sets, daily range): BP systolic 109–135; BP diastolic 42–60; PULSE 57–79; RESP 14–18; TEMP 36.5–36.9; O2SAT 91–100; BMI 38.7
--- NOTE | ~2024-05-27 | XR_ITS ---
EXAMINATION: XR chest 1V portable DATE: 05/27/2024 11:30 INDICATION: Shortness of breath. TECHNIQUE: A single frontal view of the chest was obtained on 2 radiographs. COMPARISON: Chest single view 02/16/2024, chest CT 02/26/2024 FINDINGS: There is a small left pleural effusion. There are mild airspace opacities in left mid and l ower lung zones. No pneumothorax. Cardiomegaly is noted. Median sternotomy wires and mediastinal surg ical clips are seen, likely from prior coronary artery bypass grafting. IMPRESSION: 1. Stable small left pleural effusion. 2. Stable airspace opacities in left mid and lower lung zones, consistent with atelectasis or less li nikita pneumonia. 3. Cardiomegaly. Reviewed, dictated and finalized at location A. IMPRESSION: 1. Stable small left pleural effusion. 2. Stable airspace opacities in left mid and lower lung zones, consistent with atelectasis or less likely pneumonia. 3. Cardiomegaly.
--- NOTE | 2024-05-27 09:28 | ECG_ITS ---
Test Date: 2024-05-27 09:45:42 Measurements Intervals [place] Rate: 64 P: 44 NM: 223 QRS: -48 QRSD: 158 T: 95 QT: 514 QTc: 531 Interpretive Statements SINUS RHYTHM WITH FIRST DEGREE AV BLOCK LEFT AXIS DEVIATION [QRS AXIS < -30] INCOMPLETE LEFT BUNDLE BRANCH BLOCK ABNORMAL ECG No previous ECG available for comparison Electronically Signed On 05-27-2024 14:37:25 CDT by Abelardo Petit M.D.
--- NOTE | 2024-05-27 09:36 | ED.GENADULT ---
HPI - General Adult General Chief complaint: Recheck/Abnormal Lab/Rx Stated complaint: High blood Sugar Time Seen by Provider: 05/27/24 09:27 History of Present Illness HPI narrative: 53-year-old male present to the emergency department for evaluation for elevated blood sugars. Patient does have an insulin pump for his diabetes and is on peritoneal dialysis overnight. Patient states his blood sugars were running high last night but he expected his peritoneal dialysis to help resolve the hyperglycemia. Patient suspects that his insulin pump did run out of insulin during the night. The patient woke up this morning he was having nausea vomiting and did have some episodes confusion which he attributed to his high blood sugars. Patient has glucometers are only reading high. Patient was treated with some Zofran EN route by EMS. Related Data Home Medications Medication Instructions Recorded Confirmed calcitriol 0.25 mcg capsule 0.25 mcg PO QAM 06/04/19 05/27/24 ergocalciferol (vitamin D2) 1,250 50,000 unit PO WEEKLY 06/04/19 05/27/24 mcg (50,000 unit) capsule (Vitamin D2) nitroglycerin 0.4 mg sublingual 0.4 mg sublingual Q5-15M PRN Chest 06/04/19 05/27/24 tablet Pain ezetimibe 10 mg tablet (Zetia) 10 mg PO DAILY 09/09/19 05/27/24 cetirizine 10 mg tablet (All Day 10 mg PO DAILY 12/26/19 05/27/24 Allergy (cetirizine)) famotidine 40 mg tablet 40 mg PO HS 03/31/20 05/27/24 atorvastatin 80 mg tablet 80 mg PO DAILY 11/26/20 05/27/24 colchicine 0.6 mg tablet (Colcrys) 0.6 mg PO QMWF 11/26/20 05/27/24 metoprolol succinate 50 mg 25 mg PO HS 05/20/23 05/27/24 tablet,extended release 24 hr potassium chloride 20 mEq 20 meq PO DAILY PRN Cramps 05/20/23 05/27/24 tablet,extended release febuxostat 40 mg tablet 40 mg PO QPM 07/25/23 05/27/24 gemfibrozil 600 mg tablet 600 mg PO BID 07/25/23 05/27/24 linaclotide 72 mcg capsule 72 mcg PO DAILY PRN Diarrhea 07/25/23 05/27/24 (Linzess) calcium acetate(phosphat bind) 667 667 mg PO QID 10/09/23 05/27/24 mg capsule icosapent ethyl 1 gram capsule 1 g PO BID 02/16/24 05/27/24 (Vascepa) torsemide 100 mg tablet 100 mg PO DAILY 02/16/24 05/27/24 ketoconazole 2 % topical cream 1 applic topical BID PRN Rash 05/27/24 05/27/24 moxifloxacin 0.5 % eye drops 1 drp LEFT EYE QID 05/27/24 05/27/24 Allergies Allergy/AdvReac Type Severity Reaction Status Date / Time allopurinol Allergy Severe Other Verified 05/27/24 12:13 iodine Allergy Severe Rash Verified 05/27/24 12:13 iohexol Allergy Severe Difficulty Verified 05/27/24 12:13 [From CONTRAST - CT, XRAY] Breathing ticagrelor Allergy Intermediate Rash Verified 05/27/24 12:13 Review of Systems Review of Systems: All systems reviewed & are unremarkable except as noted in HPI and below PMFSH Past Medical History Medical History Anemia in chronic kidney disease Anxiety Arthritis Chronic anticoagulation Congestive heart failure Echocardiogram May 2017 EF of 50% with hypokinetic apical, inferior and basal inferior lateral segment, mild enlargement of left atrium. Coronary artery disease With history of several stents. 05/2022 Complex procedure at [place] w/ stenting of a heavly calcified CX on OM using shockwave tx, Impella. Followed by Dr. Ortega at [facility]. Deep venous thrombosis Chronic right popliteal DVT. Diabetic peripheral neuropathy Diabetic retinopathy Elevated LFTs End-stage renal disease on peritoneal dialysis Essential hypertension Gastroesophageal reflux disease Gout Hyperlipidemia Obstructive sleep apnea With inconsistent CPAP use. Paroxysmal atrial fibrillation Peritoneal dialysis status Renal osteodystrophy Secondary hyperparathyroidism of renal origin Seizure X1 with etiology unknown Type 1 diabetes mellitus Onset around age 13. Surgical History Surgical History History of anterio
[2024-05-27 09:52] LABS: Basophils Percent Auto 0.3 % (0.2-1.2); Hematocrit 33.5 % (42.0-52.0); Hemoglobin 10.4 g/dL (14.0-18.0); Immature Granulocyte Absolute 0.15 K/mm3 (0.00-0.031); Immature Granulocyte Percent A 1.3 % (0-0.5); Lymphocytes Absolute Auto 0.75 K/mm3 (0.9-3.2); Lymphocytes Percent Auto 6.4 % (18.3-44.2); Mean Corpuscular Hemoglobin 31.1 pg (26-34); Mean Corpuscular Volume 100.3 fl (80-100); Mean Platelet Volume 11.1 fl (7.4-10.4); Monocytes Absolute Auto 1.1 K/mm3 (0.1-0.6); Neutrophils Absolute Auto 9.7 K/mm3 (1.3-6.7); Platelet Count Result 251 k/mm3 (150-375); Red Blood Count 3.34 M/mm3 (4.6-6.20); Red Cell Distribution Width 15.3 % (11.5-14.5); White Blood Count 11.7 K/mm3 (4.5-10.0)
[2024-05-27 10:06] LABS: Alanine Aminotransferase 29 U/L (6-50); Albumin Level 4.1 g/dL (3.5-5.1); Alkaline Phosphatase 101 U/L (38-126); Anion Gap 33 mmol/L (4-12); Aspartate Amino Transferase 35 U/L (17-59); Bilirubin,Total 0.8 mg/dL (0.2-1.3); Blood Urea Nitrogen 83 mg/dL (9-20); Calcium 8.4 mg/dL (8.4-10.2); Carbon Dioxide 7 mmol/L (22-30); Chloride 82 mmol/L (98-107); Estimated CRCL calculation 13 ml/min; Estimated Glomerular Filt Rate 7; Potassium 5.7 mmol/L (3.4-5.0); Sodium 122 mmol/L (137-145)
[2024-05-27 10:20] LABS: Glucose 1179 mg/dL (65-110)
[2024-05-27 10:40] LABS: Beta-Hydroxybutyrate/Acetoacetate 8.26 mmol/L (0.02-0.27)
[2024-05-27 10:46] LABS: Magnesium 2.1 mg/dL (1.6-2.3); Phosphorus 10.3 mg/dL (2.5-4.5)
[2024-05-27 10:56] LABS: Alveolar/Arterial O2 Gradient 48.9 mmHg; Base Excess ABG -18.6 mEq/l (+/-2.0); Fractional Inspired Oxygen 21 %; HCO3 ABG 8.9 mEq/l (22.0-26.0); Oxygen Content ABG 13.8 %vol (16.0-22.0); Oxygen Saturation ABG 88.4 % (95.0-100.0); Oxyhemoglobin 89.8 % THb (90.0-100.0); PCO2 ABG 26.8 mmHg (35.0-45.0); PO2 ABG 68.7 mmHg (80.0-100.0); PO2 FiO2 Ratio Arterial Blood 3.27 %; Total Hemoglobin 10.9 g/dL (12.0-18.0)
[2024-05-27 10:57] LABS: Device ROOM AIR; Site Drawn RIGHT BRACHIAL; pH ABG 7.141 (7.350-7.450)
[2024-05-27] MEDS: INSULIN HUMAN REGULAR (*BKC) 100 UNITS in SODIUM CHLORIDE 0.9% IV 99 ML 12.06 UNITS IV CONT (10:57)
[2024-05-27] MEDS: INSULIN HUMAN REGULAR (*BKC) 100 UNITS/ML 6 UNITS IV PUSH ×4 (10:57→19:54)
[2024-05-27] MEDS: SODIUM CHLORIDE 0.9% IV 1,000 ML 999 ML IV CONT (10:58)
[2024-05-27 11:20] LABS: Hemoglobin A1C 9.2 % (<5.7)
[2024-05-27 11:37] LABS: Glucose Point of Care > 500 mg/dl (65-105)
--- NOTE | 2024-05-27 11:44 | PC.NURSE ---
Pt reported Insulin Pump sometime this morning .
--- NOTE | 2024-05-27 11:52 | WPDCNINT ---
Assessment and Plan Assessment and plan (1) DKA (diabetic ketoacidosis): Qualifiers: Diabetes mellitus complication detail: without coma Diabetes mellitus type: type 1 Qualified Code(s): E10.10 - Type 1 diabetes mellitus with ketoacidosis without coma Code(s): E11.10 - Type 2 diabetes mellitus with ketoacidosis without coma Status: Acute Assessment and Plan: Patient was given 1 L IVF bolus and I will give him another L as IV fluid infusion and will hold further fluids due to patient's history of end-stage renal disease Patient has been started Insulin infusion and Q1H glucose monitoring Serial labs are ordered Replace electrolytes as needed Will transition to SC insulin once AG is closed NPO (2) End stage renal disease: Code(s): N18.6 - End stage renal disease Status: Chronic Assessment and Plan: Nephrology consulted to continue peritoneal dialysis (3) Obstructive sleep apnea: Code(s): G47.33 - Obstructive sleep apnea (adult) (pediatric) Status: Chronic Assessment and Plan: CPAP ordered (4) Chronic anticoagulation: Code(s): Z79.01 - longterm (current) use of anticoagulants Status: Acute Assessment and Plan: Continue warfarin and daily INR monitoring (5) Hyperkalemia: Code(s): E87.5 - Hyperkalemia Status: Acute Assessment and Plan: Potassium 5.7 likely secondary to acidosis hyperglycemia and baseline and stated disease Patient given IV fluid and started on IV insulin Repeat BMP pending Lokelma x 1 ordered Plan DVT prophylaxis -warfarin Stress ulcer prophylaxis -Pepcid Nutrition - npo Code Status - Full Code Total Critical Care Time - minutes Due to a high probability of clinically significant, life threatening deterioration, the patient required my highest level of preparedness to intervene emergently and I personally spent this critical care time directly and personally managing the patient. This critical care time included obtaining a history; examining the patient; pulse oximetry; ordering and review of studies; arranging urgent treatment with development of a management plan; evaluation of patient's response to treatment; frequent reassessment; and discussions with other providers. It was exclusive of separately billable procedures and treating other patients and teaching time. Please see Assessment and Plan section and the rest of the note for further information on patient assessment and treatment Biological Sciences Instructor Consult Note Consult date: 05/27/24 Reason for consult: DKA HPI: Juvenal Michael Daigle Jr. is a 53 year old male with PMH of DM1 and episodes of DKA, CABG x3, aortic pump, ESRD on PD, anemia in CKD, CHF, CAD, DVT (chronic right popliteal), HTN, GERD, gout, HLD, BEN, pAfib, renal osteodystrophy, and secondary hyperparathyroidism of renal origin. Presented to ER with chief complaint of high blood sugars. Patient states that last night he was at his baseline usual status and went to bed with working insulin pump but this morning when he woke up insulin pump was out of insulin and he did not hear the alarm during the night and slept through it. In the morning when he woke up he started having nausea vomiting no blood associated with vomitus. He denies any fever dysuria hematuria or belly pain. He states he has chronic dry cough. He also states he has chronic lower extremity swelling and chronic shortness of breath on exertion which has not changed. He checked his blood sugar and was high hence he presented to ER, he was given Zofran EN route by EMS at this time he is feeling little better and denies any other new complaints. All other systems were reviewed and were negative. In ER patient was found to be in DKA and was started on IV insulin infusion and given 1 L fluid. Patient is now being admitted to ICU for further evaluation management. Review of Systems Review of Systems: All systems reviewed & are unremar
[2024-05-27 11:53] LABS: Influenza A QL RT-PCR Negative (Negative); Influenza B QL RT-PCR Negative (Negative); RSV RNA, RT-PCR Negative (Negative); SARS-CoV-2 RNA PCR Negative (Negative)
--- NOTE | 2024-05-27 12:09 | ADMGEN ---
This patient, Juvenal Daigle Jr., was admitted to Intensive Care Unit-1. Patient/family oriented to hospital policies and general routines including ID bracelet, bed and alarms, visiting hours, pain management, procedures, bathroom and other care routines, personal items, smoking policy, room service/diet, and visiting hours. Information on how to activate the Rapid Response Team has been discussed. Patient/Family are encouraged to report perceived risks to care and to ask questions if they do not understand what they are told or what they should do.
[2024-05-27 12:12] LABS: Glucose Point of Care > 500 mg/dl (65-105)
[2024-05-27 12:25] LABS: Procalcitonin 2.2 ng/mL
[2024-05-27] MEDS: SODIUM ZIRCONIUM CYCLOSILICATE 10 GM POWD.PACK PO (12:35)
[2024-05-27] MEDS: SODIUM CHLORIDE 0.9% IV 1,000 ML 100 ML IV CONT ×2 (12:35→22:34)
[2024-05-27 12:58] LABS: INR 3.9; Prothrombin Time 39.1 Seconds (11.1-14.7)
[2024-05-27 13:12] LABS: Glucose Point of Care > 500 mg/dl (65-105)
[2024-05-27] MEDS: ERGOCALCIFEROL 50,000 UNITS CAPSULE 50000 UNITS PO (13:26)
[2024-05-27] MEDS: LORATADINE 10 MG TABLET PO (13:26)
[2024-05-27] MEDS: COLCHICINE 0.6 MG TABLET PO (13:26)
[2024-05-27] MEDS: oxyCODONE/ACETAMINOPHEN (*CRX) 5-325 MG TABLET 1 TABLET PO (13:27)
[2024-05-27] MEDS: MOXIFLOXACIN HCL 0.5% 3 ML OPHTH SOLN 1 DROP LEFT EYE ×3 (13:27→20:52)
[2024-05-27] MEDS: CEFEPIME 1 GM/NS 50 ML 1 GM/50 ML BAG IVPB (13:37)
[2024-05-27] MEDS: DOXYCYCLINE 100 MG/NS 100 ML 100 MG/100 ML BAG IVPB (14:04)
[2024-05-27 14:09] LABS: Glucose Point of Care > 500 mg/dl (65-105)
[2024-05-27 14:09] LABS: Anion Gap 30 mmol/L (4-12); Blood Urea Nitrogen 87 mg/dL (9-20); Calcium 8.2 mg/dL (8.4-10.2); Carbon Dioxide 7 mmol/L (22-30); Chloride 85 mmol/L (98-107); Estimated CRCL calculation 13 ml/min; Estimated Glomerular Filt Rate 7; Glucose 1026 mg/dL (65-110); Potassium 4.6 mmol/L (3.4-5.0); Sodium 122 mmol/L (137-145)
--- NOTE | 2024-05-27 14:38 | PM.IMHP ---
H&P: HPI History of Present Illness Date/Time: 05/27/24 14:38 Chief Complaint: DKA Narrative: Juvenal Daigle Jr. is a 53 year old male with PMH of DM1 and episodes of DKA, CABG x3, aortic pump, ESRD on PD, anemia in CKD, CHF, CAD, DVT (chronic right popliteal), HTN, GERD, gout, HLD, BEN, pAfib, renal osteodystrophy, and secondary hyperparathyroidism of renal origin. Presented to ER with chief complaint of high blood sugars. Patient states that last night he was at his baseline usual status and went to bed with working insulin pump but this morning when he woke up insulin pump was out of insulin and he did not hear the alarm during the night and slept through it. In the morning when he woke up he started having nausea vomiting no blood associated with vomitus. He denies any fever dysuria hematuria or belly pain. He states he has chronic dry cough. He also states he has chronic lower extremity swelling and chronic shortness of breath on exertion which has not changed. He checked his blood sugar and was high hence he presented to ER, he was given Zofran by EMS at this time he is feeling little better and denies any other new complaints. All other systems were reviewed and were negative. Labs in the emergency department indicated significant DKA with acidosis pH 7.1 for, glucose almost 1200, chronic anemia likely due to ESRD, pseudo hyponatremia with initial sodium of 122 but corrected actually is 148. Phosphorus also noted to be elevated at 10.3. Nephrology has been consulted and we will resume phosphate binders. Potassium initially elevated at 5.7 but this is responding to insulin drip and single dose of Lokelma he already received. EKG shows sinus rhythm with first-degree AV block, prolonged QTC, left bundle branch block and left axis deviation. Ordered magnesium level and will strive to keep that above 2. Will also try to keep potassium above 4. Labs indicate supratherapeutic INR at 3.9 so daily warfarin will be held at this time. Review of Systems Review of Systems: All systems reviewed & are unremarkable except as noted in HPI and below PMFSH Past Medical History Medical History Anemia in chronic kidney disease Anxiety Arthritis Chronic anticoagulation Congestive heart failure Echocardiogram May 2017 EF of 50% with hypokinetic apical, inferior and basal inferior lateral segment, mild enlargement of left atrium. Coronary artery disease With history of several stents. 05/2022 Complex procedure at [place] w/ stenting of a heavly calcified CX on OM using shockwave tx, Impella. Followed by Dr. Ortega at [facility]. Deep venous thrombosis Chronic right popliteal DVT. Diabetic peripheral neuropathy Diabetic retinopathy Elevated LFTs End-stage renal disease on peritoneal dialysis Essential hypertension Gastroesophageal reflux disease Gout Hyperlipidemia Obstructive sleep apnea With inconsistent CPAP use. Paroxysmal atrial fibrillation Peritoneal dialysis status Renal osteodystrophy Secondary hyperparathyroidism of renal origin Seizure X1 with etiology unknown Type 1 diabetes mellitus Onset around age 13. Surgical History Surgical History History of anterior cruciate ligament surgery (2000) Left knee History of appendectomy (2006) History of arthroscopy of left knee History of bilateral carpal tunnel release Right 05/03/2018. Left 06/02/2018. History of cardiac catheterization 01/21/2021 catheterization at [facility], Dr. Hoover done: Little change from prior catheterization. Patent stents in the RCA and PDA. Previously jailed posterolateral is occluded and development of a 50% stenosis of a branch of om 1. Normal LV function. :August 2019 demonstrated patent stents with 40% stenosis of 1 vessel with no stents or angioplasty performed per patient report. :November 2018 at [facility]
[2024-05-27 15:06] LABS: Glucose Point of Care > 500 mg/dl (65-105)
--- NOTE | 2024-05-27 15:34 | PM.CNNEP ---
Assessment and Plan Assessment and plan (1) End stage renal disease: Code(s): N18.6 - End stage renal disease Status: Chronic Assessment and Plan: End-stage renal disease Admitted with a diabetic ketoacidosis, profoundly low pH precipitated by a lack of insulin as he ran out Type 1 diabetes mellitus with nephropathy, uncontrolled, in diabetic ketoacidosis state Hypertensive renal disease Coronary artery disease status post stent Obstructive sleep apnea on CPAP Anemia of chronic kidney disease on Mircera Secondary hyperparathyroidism on calcitriol Mild leukocytosis Pseudohyponatremia Plan -dialysis is 2.5% solution -sugar control as per acute dialysis registered nurse team -continue with calcitriol -hold Mircera for now -segment of renal related problems -will need ultrafiltration as he does have fluid retention -will follow--discussed with patient -discussed with dialysis staff History of Present Illness Reason for Consult Consult date: 05/27/24 Reason for consult: end stage renal disease Requesting physician: Angelo Oakes MD Chief Complaint Chief complaint: HYPERGLYCEMIA,DKA History of Present Illness Narrative: 53-year-old male who has a history of type 1 diabetes mellitus with nephropathy, hypertensive renal disease, anemia of chronic kidney disease, ESRD, has status post stent, respiratory failure and sleep apnea on CPAP, who presents with diabetic ketoacidosis. He ran out of insulin. Has been short of breath as well. No fevers or chills. Feels stretched out in his belly but that is about the only symptom he is describing. No evidence for an infection otherwise. Had some diarrhea early on. There has been no nausea vomiting. Patient missed dialysis last night due to illness but otherwise he gets his dialysis every day. Review of Systems Review of Systems: As per history of presenting illness. Rest of the systemic review is negative or not obtainable. [facility] Past Medical History Medical History Anemia in chronic kidney disease Anxiety Arthritis Chronic anticoagulation Congestive heart failure Echocardiogram May 2017 EF of 50% with hypokinetic apical, inferior and basal inferior lateral segment, mild enlargement of left atrium. Coronary artery disease With history of several stents. 05/2022 Complex procedure at [place] w/ stenting of a heavly calcified CX on OM using shockwave tx, Impella. Followed by Dr. Ortega at [facility]. Deep venous thrombosis Chronic right popliteal DVT. Diabetic peripheral neuropathy Diabetic retinopathy Elevated LFTs End-stage renal disease on peritoneal dialysis Essential hypertension Gastroesophageal reflux disease Gout Hyperlipidemia Obstructive sleep apnea With inconsistent CPAP use. Paroxysmal atrial fibrillation Peritoneal dialysis status Renal osteodystrophy Secondary hyperparathyroidism of renal origin Seizure X1 with etiology unknown Type 1 diabetes mellitus Onset around age 13. Surgical History Surgical History History of anterior cruciate ligament surgery (2000) Left knee History of appendectomy (2006) History of arthroscopy of left knee History of bilateral carpal tunnel release Right 05/03/2018. Left 06/02/2018. History of cardiac catheterization 01/21/2021 catheterization at [facility], Dr. Hoover done: Little change from prior catheterization. Patent stents in the RCA and PDA. Previously jailed posterolateral is occluded and development of a 50% stenosis of a branch of om 1. Normal LV function. :August 2019 demonstrated patent stents with 40% stenosis of 1 vessel with no stents or angioplasty performed per patient report. :November 2018 at [facility] - stent x3. :March 2017 demonstrating mild diffuse coronary disease 80% lesion small sub branch of obtuse marginal 1 and 90% stenosis distal RC
[2024-05-27 15:49] LABS: Glucose 872 mg/dL (65-110)
[2024-05-27] MEDS: INSULIN HUMAN REGULAR (*BKC) 100 UNITS in SODIUM CHLORIDE 0.9% IV 99 ML 21 UNITS IV CONT (16:56)
[2024-05-27 17:07] LABS: Glucose Point of Care > 500 mg/dl (65-105)
[2024-05-27] MEDS: FEBUXOSTAT 40 MG TABLET PO (17:18)
[2024-05-27] MEDS: gemfibroziL 600 MG TABLET PO (17:18)
[2024-05-27] MEDS: OMEGA 3 POLYUNSAT FATTY ACIDS 1 GM CAP PO (17:18)
[2024-05-27 17:28] LABS: Glucose 812 mg/dL (65-110)
[2024-05-27 17:36] LABS: Appearance Peritoneal Fluid Clear (Clear); Color Peritoneal Fluid Colorless (Colorless); Lymphocytes Peritoneal Fluid 18 %; Monocytes Peritoneal Fluid 82 %; Neutrophils Peritoneal Fluid 0 % (0-25); Nucleated Cells Peritoneal Flu 8 /uL (0-500); Source Peritoneal Fluid Peritoneal Fluid
[2024-05-27 17:38] LABS: RBC Peritoneal Fluid < 2000 /uL (0-10000)
[2024-05-27 19:00] LABS: Glucose Point of Care > 500 mg/dl (65-105)
[2024-05-27 19:15] LABS: MRSA (PCR) DETECTED (NOT DETECTE)
[2024-05-27 19:31] LABS: Glucose 743 mg/dL (65-110)
[2024-05-27 19:32] LABS: Anion Gap 21 mmol/L (4-12); Blood Urea Nitrogen 87 mg/dL (9-20); Calcium 8.7 mg/dL (8.4-10.2); Carbon Dioxide 16 mmol/L (22-30); Chloride 88 mmol/L (98-107); Estimated CRCL calculation 13 ml/min; Estimated Glomerular Filt Rate 7; Glucose 744 mg/dL (65-110); Potassium 3.8 mmol/L (3.4-5.0); Sodium 125 mmol/L (137-145)
--- NOTE | 2024-05-27 19:40 | PHAR ---
HOME MED NOVOLOG U-100 INSULIN VERIFIED BY PHARMACY
--- NOTE | 2024-05-27 19:49 | PC.NURSE ---
BMP drawn late d/t lab losing sample from 16:53. Sample was run from previous draw at 15:27 so not accurate.
[2024-05-27 20:07] LABS: Glucose Point of Care > 500 mg/dl (65-105)
[2024-05-27] MEDS: INSULIN HUMAN REGULAR (*BKC) 100 UNITS in SODIUM CHLORIDE 0.9% IV 99 ML 30 UNITS IV CONT (20:41)
[2024-05-27] MEDS: FAMOTIDINE 20 MG/2 ML VIAL IV PUSH (20:50)
[2024-05-27 20:55] LABS: Glucose Point of Care > 500 mg/dl (65-105)
[2024-05-27 21:31] LABS: Glucose 645 mg/dL (65-110)
[2024-05-27 22:16] LABS: Glucose Point of Care > 500 mg/dl (65-105)
[2024-05-27 23:13] LABS: Glucose Point of Care 468 mg/dl (65-105)
[2024-05-27 23:30] LABS: Anion Gap 17 mmol/L (4-12); Blood Urea Nitrogen 82 mg/dL (9-20); Calcium 8.5 mg/dL (8.4-10.2); Carbon Dioxide 21 mmol/L (22-30); Chloride 90 mmol/L (98-107); Estimated CRCL calculation 13 ml/min; Estimated Glomerular Filt Rate 7; Glucose 535 mg/dL (65-110); Potassium 3.3 mmol/L (3.4-5.0); Sodium 128 mmol/L (137-145)
[2024-05-28] VITALS (16 sets, daily range): BP systolic 108–144; BP diastolic 49–68; PULSE 55–65; RESP 11–18; TEMP 35.5–36.6; O2SAT 93–100; BMI 38.8
[2024-05-28] MEDS: INSULIN HUMAN REGULAR (*BKC) 100 UNITS in SODIUM CHLORIDE 0.9% IV 99 ML 30 UNITS IV CONT (00:10)
[2024-05-28] MEDS: POTASSIUM CHLORIDE 20 MEQ ER TABLET 60 MEQ PO (00:32)
[2024-05-28] MEDS: KCL 20 MEQ/SW 100 ML 100 ML 50 MEQ IVPB (00:32)
[2024-05-28] MEDS: DOXYCYCLINE 100 MG/NS 100 ML 100 MG/100 ML BAG IVPB ×2 (00:33→12:57)
[2024-05-28 00:49] LABS: Glucose Point of Care 383 mg/dl (65-105)
[2024-05-28 01:16] LABS: Glucose Point of Care 347 mg/dl (65-105)
[2024-05-28 02:08] LABS: Glucose Point of Care 224 mg/dl (65-105)
[2024-05-28] MEDS: ONDANSETRON INJ 4 MG/2 ML VIAL IV PUSH (02:13)
[2024-05-28 03:15] LABS: Glucose Point of Care 148 mg/dl (65-105)
[2024-05-28 03:17] LABS: Hemoglobin 10.6 g/dL (14.0-18.0); Mean Corpuscular HGB Conc 33.1 g/dl (32-36); Mean Corpuscular Hemoglobin 30.6 pg (26-34); Mean Corpuscular Volume 92.5 fl (80-100); Mean Platelet Volume 10.6 fl (7.4-10.4); Platelet Count Result 218 k/mm3 (150-375); Red Blood Count 3.46 M/mm3 (4.6-6.20); Red Cell Distribution Width 15.5 % (11.5-14.5); White Blood Count 10.4 K/mm3 (4.5-10.0)
[2024-05-28 03:34] LABS: INR 7.4
[2024-05-28 03:35] LABS: Alanine Aminotransferase 27 U/L (6-50); Albumin Level 3.7 g/dL (3.5-5.1); Alkaline Phosphatase 82 U/L (38-126); Anion Gap 15 mmol/L (4-12); Anion Gap 16 mmol/L (4-12); Aspartate Amino Transferase 34 U/L (17-59); Bilirubin,Total 0.5 mg/dL (0.2-1.3); Blood Urea Nitrogen 81 mg/dL (9-20); Blood Urea Nitrogen 82 mg/dL (9-20); Calcium 8.8 mg/dL (8.4-10.2); Carbon Dioxide 22 mmol/L (22-30); Carbon Dioxide 23 mmol/L (22-30); Chloride 94 mmol/L (98-107); Estimated CRCL calculation 13 ml/min; Estimated Glomerular Filt Rate 7; Glucose 186 mg/dL (65-110); Glucose 187 mg/dL (65-110); Phosphorus 5.8 mg/dL (2.5-4.5); Potassium 3.3 mmol/L (3.4-5.0); Sodium 131 mmol/L (137-145); Sodium 133 mmol/L (137-145)
[2024-05-28 04:20] LABS: Glucose Point of Care 80 mg/dl (65-105)
[2024-05-28] MEDS: DEXTROSE 50% 25 GM/50 ML SYRINGE IV PUSH (05:16)
[2024-05-28 05:33] LABS: Glucose Point of Care 81 mg/dl (65-105)
[2024-05-28 05:33] LABS: Glucose Point of Care 45 mg/dl (65-105)
[2024-05-28 06:56] LABS: Anion Gap 16 mmol/L (4-12); Blood Urea Nitrogen 82 mg/dL (9-20); Calcium 8.7 mg/dL (8.4-10.2); Carbon Dioxide 21 mmol/L (22-30); Chloride 95 mmol/L (98-107); Estimated CRCL calculation 13 ml/min; Estimated Glomerular Filt Rate 7; Glucose 70 mg/dL (65-110); Potassium 4.1 mmol/L (3.4-5.0); Sodium 132 mmol/L (137-145)
[2024-05-28 07:05] LABS: Glucose Point of Care 77 mg/dl (65-105)
[2024-05-28 07:05] LABS: Glucose Point of Care 73 mg/dl (65-105)
[2024-05-28 08:11] LABS: Glucose Point of Care 92 mg/dl (65-105)
--- NOTE | 2024-05-28 08:21 | WPDINTPN ---
Progress Note: A&P Assessment and Plan (1) DKA (diabetic ketoacidosis): Qualifiers: Diabetes mellitus complication detail: without coma Diabetes mellitus type: type 1 Qualified Code(s): E10.10 - Type 1 diabetes mellitus with ketoacidosis without coma Code(s): E11.10 - Type 2 diabetes mellitus with ketoacidosis without coma Status: Acute Assessment and Plan: Patient was given 1 L IVF bolus and I will give him another L as IV fluid infusion and will hold further fluids due to patient's history of end-stage renal disease Patient was started Insulin infusion and Q1H glucose monitoring Serial labs were ordered Patient's anion gap has now closed. And patient's blood sugars have improved. Resume diet Transition patient back to his insulin pump and continue sugar monitoring in the hospital at this time to see if any adjustments need to be made. (2) End stage renal disease: Code(s): N18.6 - End stage renal disease Status: Chronic Assessment and Plan: Nephrology consulted to continue peritoneal dialysis (3) Obstructive sleep apnea: Code(s): G47.33 - Obstructive sleep apnea (adult) (pediatric) Status: Chronic Assessment and Plan: CPAP ordered (4) Chronic anticoagulation: Code(s): Z79.01 - computer terminal operator (current) use of anticoagulants Status: Acute Assessment and Plan: INR supratherapeutic. Hold warfarin and continue daily INR monitoring (5) Hyperkalemia: Code(s): E87.5 - Hyperkalemia Status: Acute Assessment and Plan: Potassium 5.7 likely secondary to acidosis hyperglycemia and baseline and stated disease Resolved with IV fluid and started on IV insulin (6) Sepsis: Code(s): A41.9 - Sepsis, unspecified organism Status: Acute Assessment and Plan: Patient met criteria for sepsis on presentation. Although he did not had any obvious symptoms suggestive of infection but considering patient is high risk. Elevated procalcitonin level Chest x-ray of normal Peritoneal fluid was sent and does not appear infected. Continue cefepime and doxycycline Cultures have been sent and are pending Plan DVT prophylaxis -warfarin Stress ulcer prophylaxis -Pepcid Nutrition -advanced Code Status - Full Code PT OT consult Subjective Date/time seen: 05/28/24 Overnight events reviewed. Afebrile On room air Continues to be on insulin infusion which is temporally pause due to low blood sugars He states nausea vomiting improved any denies any new complaints. He did not sleep well. He had PD done overnight. Other Vitals acceptable Review of Systems Review of Systems: All systems reviewed & are unremarkable except as noted in HPI and below (HPI) Exam Narrative: General: Pt is alert awake and in NAD Lungs/Chest: Trachea central Clear BS B/L, No crackles or wheezing. Cardiac: RRR. Normal S1 S2. No murmurs Circulation: Pedal pulses are intact and symmetrical. Abdomen: Normal bowel sounds. PD catheter in place. Soft. NT. ND. Obese Extremities: No clubbing, cyanosis Bilateral pitting edema present : Nguyen in place Neurologic: Follows commands. Moves all 4 extremities PERRL AO x3 Skin: No Rash Objective Data Vital Signs Vital Signs: Vital Signs - 24 hr 05/27/24 09:29 05/27/24 09:28 05/27/24 11:01 Temperature 36.5 C Pulse Rate 79 64 Respiratory Rate 15 18 16 Blood Pressure 118/43 L 112/60 Pulse Oximetry 98 100 95 Oxygen Delivery Room Air 05/27/24 11:46 05/27/24 10:01 05/27/24 11:31 Temperature 36.7 C 36.7 C Pulse Rate 68 64 67 Respiratory Rate 18 18 18 Blood Pressure 126/44 L 111/48 L 126/42 L Pulse Oximetry 98 93 100 Oxygen Delivery 05/27/24 12:08 05/27/24 12:15 05/27/24 12:06 Temperature Pulse Rate 67 68 Respiratory Rate Blood Pressure 111/54 L Pulse Oximetry Oxygen Delivery Room Air 05/27/24 14:00 05/27/24 12:04 05/27/24 15:37 Temperature 36.9 C
[2024-05-28 09:12] LABS: Glucose Point of Care 119 mg/dl (65-105)
--- NOTE | 2024-05-28 09:13 | PM.PNNEP ---
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 Anemia chronic kidney disease Secondary hyperparathyroid due to renal failure Coronary artery disease Benign essential hypertensive renal disease with renal failure Potential food poisoning Obstructive sleep apnea on CPAP with hypoxic acute respiratory failure Plan -peritoneal dialysis: Supervised, will loom changeover operator to 4.25% and 2.5% solution. Sugars are running low. Will try to get more fluid off. Patient uses extra needle at home and unfortunately this is not on formulary at the hospital. This would otherwise be better for fluid removal. I agree with the torsemide. Can consider intravenous Lasix if necessary. Discussed with Dr. Mi, Oncology Specialist -leukocytosis at presentation: Has been on cefepime. There is mention of sepsis criteria being met at presentation -will follow for ESRD and related needs Subjective Date/time seen: 05/28/24 09:13 Interval history: Peritoneal dialysis note Patient's peritoneal dialysis has been supervised, he had 1192 mL of fluid removed.. Supervised peritoneal dialysis Reason for encounter: ESRD follow-up, patient on peritoneal dialysis History of presenting illness: Patient has presented with diabetic ketoacidosis after he ran out of insulin. He was overnight on dialysis He had 1892 mL of fluid removed. Urinary output recorded as 0 mL only. Patient does not make good urine normally. -a bit short of breath. Complains of fatigue. Did not sleep too well. Still not back to baseline. Blood sugars noted. Exam Narrative: Well-developed well-nourished, obese male, sleeping upright, looks tired, no pallor, no icterus, strong desire, JVD negative, regular rate rhythm, no gallop or rub, diminished breath sounds, two views, soft nontender abdomen, edema to plus,, awakens, answers questions, oriented fully, no tremors. Vital signs as recorded. Objective Data Vital Signs Vital Signs: Vital Signs - 24 hr 05/27/24 09:29 05/27/24 09:28 05/27/24 11:01 Temperature 36.5 C Pulse Rate 79 64 Respiratory Rate 15 18 16 Blood Pressure 118/43 L 112/60 Pulse Oximetry 98 100 95 Oxygen Delivery Room Air Oxygen Flow Rate Fraction of Inspired Oxygen 05/27/24 11:46 05/27/24 10:01 05/27/24 11:31 Temperature 36.7 C 36.7 C Pulse Rate 68 64 67 Respiratory Rate 18 18 18 Blood Pressure 126/44 L 111/48 L 126/42 L Pulse Oximetry 98 93 100 Oxygen Delivery Oxygen Flow Rate Fraction of Inspired Oxygen 05/27/24 12:08 05/27/24 12:15 05/27/24 12:06 Temperature Pulse Rate 67 68 Respiratory Rate Blood Pressure 111/54 L Pulse Oximetry Oxygen Delivery Room Air Oxygen Flow Rate Fraction of Inspired Oxygen 05/27/24 14:00 05/27/24 12:04 05/27/24 15:37 Temperature 36.9 C Pulse Rate 60 68 59 L Respiratory Rate 17 18 15 Blood Pressure 109/50 L 111/54 L Pulse Oximetry 91 100 97 Oxygen Delivery Autopap Oxygen Flow Rate Fraction of Inspired Oxygen 05/27/24 14:00 05/27/24 16:00 05/27/24 16:00 Temperature Pulse Rate 60 58 L 57 L Respiratory Rate 15 Blood Pressure 121/52 L Pulse Oximetry 96 Oxygen Delivery Oxygen Flow Rate Fraction of Inspired Oxygen 05/27/24 16:00 05/27/24 18:00 05/27/24 18:00 Temperature Pulse Rate 58 L 60 Respiratory Rate 16 Blood Pressure 135/51 L Pulse Oximetry 91 Oxygen Delivery BiPAP Oxygen Flow Rate Fraction of Inspired Oxygen 05/27/24 20:00 05/27/24 20:00 05/27/24 22:00 Temperature 36.5 C Pulse Rate 59 L 59 L 58 L Respiratory Rate 18 14 Blood Pressure 122/60 122/56 L Pulse Oximetry 96 93 Oxygen Delivery Oxygen Flow Rate F
[2024-05-28] MEDS: FAMOTIDINE 20 MG/2 ML VIAL IV PUSH ×2 (09:32→20:36)
[2024-05-28] MEDS: ATORVASTATIN 40 MG TABLET 80 MG PO (09:32)
[2024-05-28] MEDS: calcitrioL 0.25 MCG CAPSULE PO (09:32)
[2024-05-28] MEDS: CALCIUM ACETATE 667 MG TABLET PO ×4 (09:32→20:36)
[2024-05-28] MEDS: EZETIMIBE 10 MG TABLET PO (09:32)
[2024-05-28] MEDS: gemfibroziL 600 MG TABLET PO ×2 (09:32→17:18)
[2024-05-28] MEDS: LORATADINE 10 MG TABLET PO (09:33)
[2024-05-28] MEDS: OMEGA 3 POLYUNSAT FATTY ACIDS 1 GM CAP PO ×2 (09:33→17:18)
[2024-05-28] MEDS: TORSEMIDE 20 MG TABLET 100 MG PO (09:33)
[2024-05-28] MEDS: MOXIFLOXACIN HCL 0.5% 3 ML OPHTH SOLN 1 DROP LEFT EYE ×4 (09:33→20:36)
--- NOTE | 2024-05-28 09:34 | PM.PNNEP ---
Progress Note: A&P Assessment and Plan (1) End-stage renal disease on peritoneal dialysis: Code(s): N18.6 - End stage renal disease; Z99.2 - Dependence on renal dialysis Status: Acute Assessment and Plan: End-stage renal disease Admitted with a diabetic ketoacidosis, profoundly low pH precipitated by a lack of insulin as he ran out Type 1 diabetes mellitus with nephropathy, uncontrolled, in diabetic ketoacidosis state Hypertensive renal disease Coronary artery disease status post stent Obstructive sleep apnea on CPAP Anemia of chronic kidney disease on Mircera Secondary hyperparathyroidism on calcitriol Mild leukocytosis Pseudohyponatremia Plan -peritoneal dialysis: Supervised, will manager of change to 4.25% and 2.5% solution. Sugars are running low. Will try to get more fluid off. Patient uses extra needle at home and unfortunately this is not on formulary at the hospital. This would otherwise be better for fluid removal. I agree with the torsemide. Can consider intravenous Lasix if necessary. Discussed with Dr. Mi, Project Finance Analyst -leukocytosis at presentation: Has been on cefepime. There is mention of sepsis criteria being met at presentation -will follow for ESRD and related needs Subjective Date/time seen: 05/28/24 09:34 Interval history: Peritoneal dialysis note Patient's peritoneal dialysis has been supervised, he had 1192 mL of fluid removed.. Supervised peritoneal dialysis Reason for encounter: ESRD follow-up, patient on peritoneal dialysis History of presenting illness: Patient has presented with diabetic ketoacidosis after he ran out of insulin. He was overnight on dialysis He had 1892 mL of fluid removed. Urinary output recorded as 0 mL only. Patient does not make good urine normally. -a bit short of breath. Complains of fatigue. Did not sleep too well. Still not back to baseline. Blood sugars noted. Exam Narrative: Well-developed well-nourished, obese male, sleeping upright, looks tired, no pallor, no icterus, strong desire, JVD negative, regular rate rhythm, no gallop or rub, diminished breath sounds, two views, soft nontender abdomen, edema to plus,, awakens, answers questions, oriented fully, no tremors. Vital signs as recorded. Objective Data Vital Signs Vital Signs: Vital Signs - 24 hr 05/27/24 11:01 05/27/24 11:46 05/27/24 10:01 Temperature 36.7 C Pulse Rate 64 68 64 Respiratory Rate 16 18 18 Blood Pressure 112/60 126/44 L 111/48 L Pulse Oximetry 95 98 93 Oxygen Delivery Oxygen Flow Rate Fraction of Inspired Oxygen 05/27/24 11:31 05/27/24 12:08 05/27/24 12:15 Temperature 36.7 C Pulse Rate 67 67 Respiratory Rate 18 Blood Pressure 126/42 L 111/54 L Pulse Oximetry 100 Oxygen Delivery Room Air Oxygen Flow Rate Fraction of Inspired Oxygen 05/27/24 12:06 05/27/24 14:00 05/27/24 12:04 Temperature 36.9 C Pulse Rate 68 60 68 Respiratory Rate 17 18 Blood Pressure 109/50 L 111/54 L Pulse Oximetry 91 100 Oxygen Delivery Oxygen Flow Rate Fraction of Inspired Oxygen 05/27/24 15:37 05/27/24 14:00 05/27/24 16:00 Temperature Pulse Rate 59 L 60 58 L Respiratory Rate 15 15 Blood Pressure 121/52 L Pulse Oximetry 97 96 Oxygen Delivery Autopap Oxygen Flow Rate Fraction of Inspired Oxygen 05/27/24 16:00 05/27/24 16:00 05/27/24 18:00 Temperature Pulse Rate 57 L 58 L Respiratory Rate 16 Blood Pressure 135/51 L Pulse Oximetry 91 Oxygen Delivery BiPAP Oxygen Flow Rate Fraction of Inspired Oxygen 05/27/24 18:00 05/27/24 20:00 05/27/24 20:00 Temperature 36.5 C Pulse Rate 60 59 L 59 L Respiratory Rate 18 Blood Pressure 122/60 Pulse Oximetry 96 Oxygen Delivery Oxygen Flow Rate Fraction of Inspired Oxygen 05/27/24 22:00 05/27/24 22:00 05/28/24 00:00 Temperature Pulse Rate 58 L 59 L 59 L Respiratory Rate 14 Blood Pressure 122/56 L
[2024-05-28 12:01] LABS: Glucose Point of Care 158 mg/dl (65-105)
[2024-05-28 12:01] LABS: Glucose Point of Care 168 mg/dl (65-105)
[2024-05-28] MEDS: CEFEPIME 1 GM/NS 50 ML 1 GM/50 ML BAG IVPB (12:02)
[2024-05-28 13:27] LABS: Add Urine Microscopic? YES; Appearance Urine Cloudy (Clear); Bacteria Urine None Seen /hpf; Bilirubin Urine Negative (Negative); Blood Urine 3+ (Negative); Color Urine Dark Yellow (Yellow); Glucose Urine UA 3+ mg/dL (Negative); Hyaline Casts Urine Present /lpf; Ketones Urine Trace mg/dL (Negative); Leukocyte Esterase Ur 2+ LEU/UL (Negative); Need Manual Microscopic Reviewed; Nitrate Urine Negative (Negative); Protein Urine 2+ mg/dL (Negative); RBC Urine 51-100 /hpf (0-2); Specific Grav Ur 1.023 (1.001-1.035); Squamous Epithelial Cell Urine Occasional /hpf (Few); Urobilinogen Urine 0.2 mg/dL (<2.0); WBC Urine >100 /hpf (0-3)
--- NOTE | 2024-05-28 15:41 | PM.IMPN ---
Progress Note: A&P Assessment and Plan (1) DKA (diabetic ketoacidosis): Qualifiers: Diabetes mellitus complication detail: without coma Diabetes mellitus type: type 1 Qualified Code(s): E10.10 - Type 1 diabetes mellitus with ketoacidosis without coma Code(s): E11.10 - Type 2 diabetes mellitus with ketoacidosis without coma Status: Acute Assessment and Plan: Treated with IV fluid resuscitation as tolerated. Due to patient's history of end-stage renal disease Patient was started Insulin infusion and Q1H glucose monitoring Serial labs were ordered Patient's anion gap has now closed. And patient's blood sugars have improved. Resume diet He has been transition back to his insulin pump. family educator consultation (2) End stage renal disease: Code(s): N18.6 - End stage renal disease Status: Chronic Assessment and Plan: Nephrology consulted to continue peritoneal dialysis (3) Obstructive sleep apnea: Code(s): G47.33 - Obstructive sleep apnea (adult) (pediatric) Status: Chronic Assessment and Plan: CPAP ordered (4) Chronic anticoagulation: Code(s): Z79.01 - care home (current) use of anticoagulants Status: Acute Assessment and Plan: INR supratherapeutic. Hold warfarin and continue daily INR monitoring (5) Hyperkalemia: Code(s): E87.5 - Hyperkalemia Status: Acute Assessment and Plan: Potassium 5.7 likely secondary to acidosis hyperglycemia and baseline and stated disease Resolved with IV fluid and started on IV insulin (6) Sepsis: Code(s): A41.9 - Sepsis, unspecified organism Status: Acute Assessment and Plan: Patient met criteria for sepsis on presentation. Although he did not had any obvious symptoms suggestive of infection but considering patient is high risk. Elevated procalcitonin level Chest x-ray of normal Peritoneal fluid was sent and does not appear infected. Continue cefepime and doxycycline Cultures have been sent and are pending Plan DVT prophylaxis -warfarin monitor INR Stress ulcer prophylaxis -Pepcid Nutrition -advanced Code Status - Full Code PT OT consult Subjective Date/time seen: 05/28/24 15:41 Interval history: No overnight events. No new complaints. No shortness of breath or chest pain. He is back on his insulin pump today. Review of Systems Review of Systems: All systems reviewed & are unremarkable except as noted in HPI and below (HPI) Exam Narrative: General: Pt is alert awake and in NAD Lungs/Chest: Trachea central Clear BS B/L, No crackles or wheezing. Cardiac: RRR. Normal S1 S2. No murmurs Circulation: Pedal pulses are intact and symmetrical. Abdomen: Normal bowel sounds. PD catheter in place. Soft. NT. ND. Obese Extremities: No clubbing, cyanosis Bilateral pitting edema present : Nguyen in place Neurologic: Follows commands. Moves all 4 extremities PERRL AO x3 Skin: No Rash Objective Data Vital Signs Vital Signs: Vital Signs - 24 hr 05/27/24 16:00 05/27/24 16:00 05/27/24 16:00 Temperature Pulse Rate 58 L 57 L Respiratory Rate 15 Blood Pressure 121/52 L Pulse Oximetry 96 Oxygen Delivery BiPAP Oxygen Flow Rate Fraction of Inspired Oxygen 05/27/24 18:00 05/27/24 18:00 05/27/24 20:00 Temperature Pulse Rate 58 L 60 59 L Respiratory Rate 16 Blood Pressure 135/51 L Pulse Oximetry 91 Oxygen Delivery Oxygen Flow Rate Fraction of Inspired Oxygen 05/27/24 20:00 05/27/24 22:00 05/27/24 22:00 Temperature 97.7 F Pulse Rate 59 L 58 L 59 L Respiratory Rate 18 14 Blood Pressure 122/60 122/56 L Pulse Oximetry 96 93 Oxygen Delivery Oxygen Flow Rate Fraction of Inspired Oxygen 05/28/24 00:00 05/28/24 00:00 05/28/24 02:00 Temperature 97.7 F Pulse Rate 59 L 59 L 59 L Respiratory Rate 15 Blood Pressure 110/56 L Pulse Oximetry 97 Oxygen Delivery Oxygen
[2024-05-28 17:00] LABS: Glucose Point of Care 135 mg/dl (65-105)
[2024-05-28] MEDS: FEBUXOSTAT 40 MG TABLET PO (17:18)
[2024-05-28 21:40] LABS: Glucose Point of Care 168 mg/dl (65-105)
[2024-05-28] MEDS: oxyCODONE/ACETAMINOPHEN (*CRX) 5-325 MG TABLET 1 TABLET PO (23:54)
[2024-05-29] VITALS (18 sets, daily range): BP systolic 129–168; BP diastolic 63–78; PULSE 57–69; RESP 12–24; TEMP 36.5–36.8; O2SAT 95–100; BMI 39.7
[2024-05-29] MEDS: DOXYCYCLINE 100 MG/NS 100 ML 100 MG/100 ML BAG IVPB ×2 (00:02→12:33)
--- NOTE | 2024-05-29 01:42 | PC.NURSE ---
PD machine alarming, RN made call to company and was walked through how to stop alarming.
[2024-05-29 04:32] LABS: Hematocrit 31.4 % (42.0-52.0); Hemoglobin 10.6 g/dL (14.0-18.0); Mean Corpuscular HGB Conc 33.8 g/dl (32-36); Mean Corpuscular Volume 91.8 fl (80-100); Platelet Count Result 186 k/mm3 (150-375); Red Blood Count 3.42 M/mm3 (4.6-6.20); Red Cell Distribution Width 15.9 % (11.5-14.5); White Blood Count 6.3 K/mm3 (4.5-10.0)
[2024-05-29 04:40] LABS: Alanine Aminotransferase 31 U/L (6-50); Albumin Level 3.6 g/dL (3.5-5.1); Alkaline Phosphatase 83 U/L (38-126); Anion Gap 14 mmol/L (4-12); Aspartate Amino Transferase 40 U/L (17-59); Bilirubin,Total 0.4 mg/dL (0.2-1.3); Blood Urea Nitrogen 81 mg/dL (9-20); Calcium 8.4 mg/dL (8.4-10.2); Carbon Dioxide 24 mmol/L (22-30); Chloride 96 mmol/L (98-107); Estimated CRCL calculation 12 ml/min; Estimated Glomerular Filt Rate 6; Glucose 165 mg/dL (65-110); Phosphorus 6.8 mg/dL (2.5-4.5); Potassium 4.2 mmol/L (3.4-5.0); Sodium 134 mmol/L (137-145)
[2024-05-29 04:44] LABS: INR 5.8
[2024-05-29] MEDS: LEVOTHYROXINE SODIUM 25 MCG TABLET PO (06:48)
[2024-05-29 07:39] LABS: Glucose Point of Care 102 mg/dl (65-105)
[2024-05-29] MEDS: TORSEMIDE 20 MG TABLET 100 MG PO (08:07)
[2024-05-29] MEDS: CALCIUM ACETATE 667 MG TABLET PO ×4 (08:08→20:37)
[2024-05-29] MEDS: LORATADINE 10 MG TABLET PO (08:08)
[2024-05-29] MEDS: FAMOTIDINE 20 MG/2 ML VIAL IV PUSH ×2 (08:08→20:37)
[2024-05-29] MEDS: OMEGA 3 POLYUNSAT FATTY ACIDS 1 GM CAP PO ×2 (08:08→16:47)
[2024-05-29] MEDS: gemfibroziL 600 MG TABLET PO ×2 (08:08→16:47)
[2024-05-29] MEDS: EZETIMIBE 10 MG TABLET PO (08:08)
[2024-05-29] MEDS: calcitrioL 0.25 MCG CAPSULE PO (08:08)
[2024-05-29] MEDS: ATORVASTATIN 40 MG TABLET 80 MG PO (08:08)
[2024-05-29] MEDS: MOXIFLOXACIN HCL 0.5% 3 ML OPHTH SOLN 1 DROP LEFT EYE ×4 (08:09→20:38)
[2024-05-29] MEDS: COLCHICINE 0.6 MG TABLET PO (08:18)
--- NOTE | 2024-05-29 11:24 | PM.PNNEP ---
Subjective Date/time seen: 05/29/24 11:24 Interval history: Follow-up for end stage renal disease on peritoneal dialysis. Chart reviewed -- assuming care from Dr. Reyes; tolerated CCPD treatment overnight but no significant ultrafiltration was achieved (acutally absorbed ~ 800cc of fluid); Exam Narrative: General: WD/WN male in NAD Heart: normal S1 and S2; no rub Lungs: clear to auscultation Abdomen: soft, nontender, nondistended, positive bowel sounds Extremities: no cyanosis or clubbing; 2+ edema Skin: warm and dry Objective Data Vital Signs Vital Signs: Vital Signs Temp Pulse Resp BP Pulse Ox O2 Del Method O2 Flow Rate 05/29/24 10:26 Room Air 05/29/24 10:00 64 05/29/24 08:00 96 Nasal Cannula 1 05/29/24 08:00 63 05/29/24 08:00 98.1 F 62 12 168/76 H 100 05/29/24 07:06 97.7 F 59 L 14 138/63 1 05/29/24 06:00 57 L 05/29/24 04:00 62 05/29/24 04:00 97.7 F 62 14 138/63 100 05/29/24 04:30 98 Nasal Cannula 1 05/29/24 04:00 99 Nasal Cannula 1 05/29/24 02:00 62 05/29/24 00:00 66 05/29/24 00:00 97.7 F 66 13 144/68 H 98 05/29/24 00:00 99 Nasal Cannula 1 05/28/24 23:58 65 14 98 Autopap 05/28/24 22:00 58 L 05/28/24 20:00 62 05/28/24 20:00 Room Air 05/28/24 20:00 97.9 F 62 16 137/68 100 05/28/24 21:00 61 11 L 98 Autopap 05/28/24 15:20 05/28/24 18:00 63 05/28/24 16:00 63 05/28/24 16:00 97.9 F 61 13 121/61 99 05/28/24 16:00 Room Air 05/28/24 12:00 99 Nasal Cannula 1 05/28/24 14:00 61 05/28/24 12:00 61 05/28/24 12:00 97.7 F 64 16 144/49 H 98 Intake/Output Intake/Output: Intake & Output 05/26/24 05/27/24 05/28/24 05/29/24 23:59 23:59 23:59 23:59 Intake Total 2917.9 2068.4 880 Output Total 1942 -800 Balance 2917.9 126.4 1680 Meds/Results Medications: Active Medications Generic Name Dose Route Start Last Admin Trade Name Freq PRN Reason Stop Dose Admin Albuterol 2.5 mg 05/27/24 11:56 Albuterol Sulfate Neb 2.5 Mg/3 Ml Inh INHALATION Q6HRT PRN Shortness Of Breath Or Wheezing Albuterol 1 puff 05/27/24 12:25 Albuterol Sulfate (*Sp) Aerosol 1 Puff INHALATION QID PRN shortness of breath or wheezing Atorvastatin Calcium 80 mg 05/28/24 09:00 05/29/24 08:08 Atorvastatin 40 Mg Tablet PO 80 mg DAILY ASHLEY Administration Calcitriol 0.25 mcg 05/28/24 09:00 05/29/24 08:08 Calcitriol 0.25 Mcg Capsule PO 0.25 mcg QAM ASHLEY Administration Calcium Acetate 667 mg 05/27/24 13:00 05/29/24 08:08 Calcium Acetate 667 Mg Tablet PO 667 mg QID ASHLEY Administration Colchicine 0.6 mg 05/27/24 12:25 05/29/24 08:18 Colchicine 0.6 Mg Tablet PO 0.6 mg MoWeFr@0900 ASHLEY Administration Dextrose 12.5 gm 05/27/24 10:27 05/28/24 05:16 Dextrose 50% 25 Gm/50 Ml Syringe IV PUSH 12.5 gm PRN PRN Administration Hypoglycemia Protocol Ezetimibe 10 mg 05/28/24 09:00 05/29/24 08:08 Ezetimibe 10 Mg Tablet PO 10 mg DAILY ASHLEY Administration Ergocalciferol 50,000 units 05/27/24 12:50 05/27/24 13:26 Ergocalciferol 50,000 Units Capsule PO 50,000 units Mo@0900 ASHLEY Administration Famotidine 20 mg 05/27/24 21:00 05/29/24 08:08 Famotidine 20 Mg/2 Ml Vial IV PUSH 20 mg Q12HR ASHLEY Administration Febuxostat 40 mg 05/27/24 18:00 05/28/24 17:18 Febuxostat 40 Mg Tablet PO 40 mg QPM ASHLEY Administration Fish Oil 1 gm 05/27/24 17:00 05/29/24 08:08 [place] 3 Polyunsat Fatty Acids 1 Gm Cap PO 1 gm BID ASHLEY Administration Gemfibrozil 600 mg 05/27/24 17:00 05/29/24 08:08 Gemfibrozil 600 Mg Tablet PO 600 mg BID ASHLEY Administration Glucagon 1 mg 05/27/24 10:27 Glucagon For Inj 1 Mg Vial IM PRN PRN Hypoglycemia Protocol Glucose 15 gm
[2024-05-29 11:43] LABS: Glucose Point of Care 77 mg/dl (65-105)
[2024-05-29] MEDS: CEFEPIME 1 GM/NS 50 ML 1 GM/50 ML BAG IVPB (11:45)
--- NOTE | 2024-05-29 12:48 | PM.IMPN ---
Progress Note: A&P Assessment and Plan (1) DKA (diabetic ketoacidosis): Qualifiers: Diabetes mellitus complication detail: without coma Diabetes mellitus type: type 1 Qualified Code(s): E10.10 - Type 1 diabetes mellitus with ketoacidosis without coma Code(s): E11.10 - Type 2 diabetes mellitus with ketoacidosis without coma Status: Acute Assessment and Plan: Treated with IV fluid resuscitation as tolerated due to patient's history of end-stage renal disease Patient was started Insulin infusion and Q1H glucose monitoring Serial labs were ordered Patient's anion gap has now closed. And patient's blood sugars have improved. Diet resumed He has been transition back to his insulin pump. family living educator consultation (2) End stage renal disease: Code(s): N18.6 - End stage renal disease Status: Chronic Assessment and Plan: Nephrology consulted to continue peritoneal dialysis (3) Obstructive sleep apnea: Code(s): G47.33 - Obstructive sleep apnea (adult) (pediatric) Status: Chronic Assessment and Plan: CPAP ordered (4) Chronic anticoagulation: Code(s): Z79.01 - [facility] (current) use of anticoagulants Status: Acute Assessment and Plan: INR still supratherapeutic. Holding warfarin and continue daily INR monitoring Home once this is close to therapeutic (5) Hyperkalemia: Code(s): E87.5 - Hyperkalemia Status: Acute Assessment and Plan: Potassium 5.7 likely secondary to acidosis hyperglycemia and baseline and stated disease Resolved with IV fluid and started on IV insulin. (6) Sepsis: Code(s): A41.9 - Sepsis, unspecified organism Status: Acute Assessment and Plan: Patient met criteria for sepsis on presentation. Although he did not had any obvious symptoms suggestive of infection but considering patient is high risk. Covid, influenza and RSV PCR negative. Elevated procalcitonin level to 2.2. WBC 11.7 but trended to normal. MRSA nasal swab positive. Chest x-ray of normal BCx NGTD. Peritoneal fluid NGTD. Urine culture pending Continue cefepime and doxycycline Stop abx if UCx negative. 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 Assuming care. Chart reviewed. Patient had a good night last night. Tolerated peritoneal dialysis without issue. No chest pain. No shortness of breath. Denies nausea or vomiting. Exam Narrative: AF 98.0 129/78 63 24 96% ra Gen - NARD Chest - CTA bilaterally, nml RR CV - RRR S1/S2. Tele showing PVCs. Abd - Soft, obese, NT Ext - trace pedal edema Neuro - Alert and appropriate Psych - Nml mood and affect Skin - Warm and dry. small dried eschars right great toe at tip of nail and left 2nd toe Objective Data Vital Signs Vital Signs: Vital Signs - 24 hr 05/28/24 14:00 05/28/24 16:00 05/28/24 16:00 Temperature 97.9 F Pulse Rate 61 61 Respiratory Rate 13 Blood Pressure 121/61 Pulse Oximetry 99 Oxygen Delivery Room Air Oxygen Flow Rate Fraction of Inspired Oxygen 05/28/24 16:00 05/28/24 18:00 05/28/24 15:20 Temperature Pulse Rate 63 63 Respiratory Rate Blood Pressure Pulse Oximetry Oxygen Delivery Oxygen Flow Rate Fraction of Inspired Oxygen 98 05/28/24 21:00 05/28/24 20:00 05/28/24 20:00 Temperature 97.9 F Pulse Rate 61 62 Respiratory Rate 11 L 16 Blood Pressure 137/68 Pulse Oximetry 98 100 Oxygen Delivery Autopap Room Air Oxygen Flow Rate Fraction of Inspired Oxygen 05/28/24 20:00 05/28/24 22:00 05/28/24 23:58 Temperature Pulse Rate 62 58 L 65 Respiratory Rate 14 Blood Pressure Pulse
[2024-05-29 16:18] LABS: Glucose Point of Care 106 mg/dl (65-105)
[2024-05-29] MEDS: FEBUXOSTAT 40 MG TABLET PO (16:47)
--- NOTE | 2024-05-29 17:30 | PC.NURSE ---
This patient, Juvenal Daigle Jr., was transferred to [[facility] 209 ] on 05/29/24 at 1730. Personal belongings sent with patient. Report given to [RODNEY ROLAND ]. Appropriate documentation sent with patient.
[2024-05-29 20:02] LABS: Glucose Point of Care 93 mg/dl (65-105)
--- NOTE | 2024-05-29 21:35 | PC.NURSE ---
2121: RN to bedside to assess PD alarm. RN called number on machine as instructed by plunket nurse. RN instructed to unclamp the clamp on the heating line. Alarm resolved. Will continue to monitor.
[2024-05-30] VITALS (10 sets, daily range): BP systolic 147–154; BP diastolic 63–88; PULSE 63–70; RESP 12–18; TEMP 36.5–36.8; O2SAT 95–99
[2024-05-30] MEDS: LEVOTHYROXINE SODIUM 25 MCG TABLET PO (05:39)
[2024-05-30 06:24] LABS: Hematocrit 30.3 % (42.0-52.0); Hemoglobin 10.2 g/dL (14.0-18.0); Mean Corpuscular HGB Conc 33.7 g/dl (32-36); Mean Corpuscular Volume 92.1 fl (80-100); Mean Platelet Volume 10.9 fl (7.4-10.4); Platelet Count Result 141 k/mm3 (150-375); Red Blood Count 3.29 M/mm3 (4.6-6.20); Red Cell Distribution Width 15.4 % (11.5-14.5); White Blood Count 5.2 K/mm3 (4.5-10.0)
[2024-05-30 06:35] LABS: Alanine Aminotransferase 31 U/L (6-50); Albumin Level 3.5 g/dL (3.5-5.1); Alkaline Phosphatase 92 U/L (38-126); Anion Gap 9 mmol/L (4-12); Aspartate Amino Transferase 36 U/L (17-59); Bilirubin,Total 0.6 mg/dL (0.2-1.3); Blood Urea Nitrogen 81 mg/dL (9-20); Calcium 8.8 mg/dL (8.4-10.2); Carbon Dioxide 28 mmol/L (22-30); Chloride 97 mmol/L (98-107); Estimated CRCL calculation 12 ml/min; Estimated Glomerular Filt Rate 6; Glucose 224 mg/dL (65-110); Magnesium 1.9 mg/dL (1.6-2.3); Phosphorus 5.4 mg/dL (2.5-4.5); Potassium 4.2 mmol/L (3.4-5.0); Sodium 134 mmol/L (137-145)
[2024-05-30 06:37] LABS: INR 1.9; Prothrombin Time 22.5 Seconds (11.1-14.7)
[2024-05-30 07:45] LABS: Glucose Point of Care 130 mg/dl (65-105)
--- NOTE | 2024-05-30 08:41 | PM.PNNEP ---
Subjective Date/time seen: 05/30/24 08:51 Objective Data Vital Signs Vital Signs: Vital Signs Temp Pulse Resp BP Pulse Ox O2 Del Method O2 Flow Rate 05/30/24 12:00 99 Room Air 05/30/24 11:46 97.7 F 64 16 147/63 H 99 05/30/24 08:00 98 Room Air 05/30/24 10:00 68 05/30/24 08:00 64 05/30/24 07:30 98.1 F 63 12 147/70 H 98 05/30/24 05:43 64 05/30/24 04:00 98.2 F 64 18 154/88 H 97 05/30/24 04:00 95 Room Air 05/30/24 00:00 95 Room Air 05/30/24 04:00 66 05/30/24 02:00 67 05/30/24 00:00 66 05/29/24 23:23 98.2 F 65 20 145/69 H 95 05/29/24 22:00 64 05/29/24 20:00 66 05/29/24 20:00 97 Room Air 05/29/24 20:25 1 05/29/24 19:54 98.2 F 60 20 141/69 H 97 05/29/24 18:00 Room Air 05/29/24 18:00 67 05/29/24 16:00 Room Air 05/29/24 16:00 66 05/29/24 15:55 98 F 64 19 164/73 H 99 05/29/24 14:00 65 FiO2 05/30/24 12:00 05/30/24 11:46 05/30/24 08:00 05/30/24 10:00 05/30/24 08:00 05/30/24 07:30 05/30/24 05:43 05/30/24 04:00 05/30/24 04:00 05/30/24 00:00 05/30/24 04:00 05/30/24 02:00 05/30/24 00:00 05/29/24 23:23 05/29/24 22:00 05/29/24 20:00 05/29/24 20:00 05/29/24 20:25 05/29/24 19:54 05/29/24 18:00 05/29/24 18:00 05/29/24 16:00 24 05/29/24 16:00 05/29/24 15:55 05/29/24 14:00 Intake/Output Intake/Output: Intake & Output 05/27/24 05/28/24 05/29/24 05/30/24 23:59 23:59 23:59 23:59 Intake Total 2917.9 2068.4 1980 590 Output Total 1942 -800 4246 Balance 2917.9 126.4 2780 -3656 Meds/Results Medications: Active Medications Generic Name Dose Route Start Last Admin Trade Name Freq PRN Reason Stop Dose Admin Albuterol 2.5 mg 05/27/24 11:56 Albuterol Sulfate Neb 2.5 Mg/3 Ml Inh INHALATION Q6HRT PRN Shortness Of Breath Or Wheezing Albuterol 1 puff 05/27/24 12:25 Albuterol Sulfate (*Sp) Aerosol 1 Puff INHALATION QID PRN shortness of breath or wheezing Atorvastatin Calcium 80 mg 05/28/24 09:00 05/30/24 09:02 Atorvastatin 40 Mg Tablet PO 80 mg DAILY ASHLEY Administration Calcitriol 0.25 mcg 05/28/24 09:00 05/30/24 09:02 Calcitriol 0.25 Mcg Capsule PO 0.25 mcg QAM ASHLEY Administration Calcium Acetate 667 mg 05/27/24 13:00 05/30/24 12:19 Calcium Acetate 667 Mg Tablet PO 667 mg QID ASHLEY Administration Colchicine 0.6 mg 05/27/24 12:25 05/29/24 08:18 Colchicine 0.6 Mg Tablet PO 0.6 mg MoWeFr@0900 ASHLEY Administration Dextrose 12.5 gm 05/27/24 10:27 05/28/24 05:16 Dextrose 50% 25 Gm/50 Ml Syringe IV PUSH 12.5 gm PRN PRN Administration Hypoglycemia Protocol Ezetimibe 10 mg 05/28/24 09:00 05/30/24 09:03 Ezetimibe 10 Mg Tablet PO 10 mg DAILY ASHLEY Administration Ergocalciferol 50,000 units 05/27/24 12:50 05/27/24 13:26 Ergocalciferol 50,000 Units Capsule PO 50,000 units Mo@0900 ASHLEY Administration Famotidine 20 mg 05/27/24 21:00 05/30/24 11:58 Famotidine 20 Mg/2 Ml Vial IV PUSH Not Given Q12HR ASHLEY Febuxostat 40 mg 05/27/24 18:00 05/29/24 16:47 Febuxostat 40 Mg Tablet PO 40 mg QPM ASHLEY Administration Fish Oil 1 gm 05/27/24 17:00 05/30/24 09:02 [place] 3 Polyunsat Fatty Acids 1 Gm Cap PO 1 gm BID ASHLEY Administration Gemfibrozil 600 mg 05/27/24 17:00 05/30/24 09:03 Gemfibrozil 600 Mg Tablet PO 600 mg BID ASHLEY Administration Glucagon 1 mg 05/27/24 10:27 Glucagon For Inj 1 Mg Vial IM PRN PRN Hypoglycemia Protocol Glucose 15 gm 05/27/24 10:27 Glucose Oral Gel 15 Gm Of Glucse In 37.5 Gm Tube PO PRN PRN Hypoglycemia Protocol Dextrose 1,000 mls @ 100 mls/hr 05/27/24 10:27 Dextrose 5% 1,000 Ml IVPB PRN PRN Hypoglycemia Protocol Insulin Aspart 3 - 6 units
[2024-05-30] MEDS: MOXIFLOXACIN HCL 0.5% 3 ML OPHTH SOLN 1 DROP LEFT EYE ×2 (09:02→12:19)
[2024-05-30] MEDS: calcitrioL 0.25 MCG CAPSULE PO (09:02)
[2024-05-30] MEDS: OMEGA 3 POLYUNSAT FATTY ACIDS 1 GM CAP PO (09:02)
[2024-05-30] MEDS: ATORVASTATIN 40 MG TABLET 80 MG PO (09:02)
[2024-05-30] MEDS: TORSEMIDE 20 MG TABLET 100 MG PO (09:03)
[2024-05-30] MEDS: LORATADINE 10 MG TABLET PO (09:03)
[2024-05-30] MEDS: gemfibroziL 600 MG TABLET PO (09:03)
[2024-05-30] MEDS: CALCIUM ACETATE 667 MG TABLET PO ×2 (09:03→12:19)
[2024-05-30] MEDS: EZETIMIBE 10 MG TABLET PO (09:03)
--- NOTE | 2024-05-30 11:11 | PCOTNOTE ---
Attempted to see pt. for occupational therapy evaluation. Pt. declines need for OT services, reports being independent in room without assist, nursing in agreement. Re-order if needed.
[2024-05-30 11:20] LABS: Glucose Point of Care 117 mg/dl (65-105)
--- NOTE | 2024-05-30 12:00 | PC.NURSE ---
AM dose of pepcid held due to loss of IV access. aware. Advised to hold at this time.
--- NOTE | 2024-05-30 13:32 | PM.DS ---
DS: Admitting Diagnosis Discharge Date 05/30/24 Admitting Diagnosis Hyperglycemia. DS: Discharge Diagnosis Discharge Diagnosis (1) DKA (diabetic ketoacidosis): Qualifiers: Diabetes mellitus complication detail: without coma Diabetes mellitus type: type 1 Qualified Code(s): E10.10 - Type 1 diabetes mellitus with ketoacidosis without coma Code(s): E11.10 - Type 2 diabetes mellitus with ketoacidosis without coma Status: Acute (2) End stage renal disease: Code(s): N18.6 - End stage renal disease Status: Chronic (3) Obstructive sleep apnea: Code(s): G47.33 - Obstructive sleep apnea (adult) (pediatric) Status: Chronic (4) Chronic anticoagulation: Code(s): Z79.01 - halfway (current) use of anticoagulants Status: Acute (5) Hyperkalemia: Code(s): E87.5 - Hyperkalemia Status: Acute (6) Sepsis: Code(s): A41.9 - Sepsis, unspecified organism Status: Acute DS: Summary Hospital Course Reason for hospitalization: 53yo male with DM, AFib on 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 Please see H&P for details. Hospital Course: Patient was at his baseline when he went to bed with working insulin pump but on the morning of admission, he awoke and found nsulin pump was out of insulin. He started having nausea and vomiting. No fevers, dysuria, hematuria or abdominal pain. He has chronic dry cough. In the ED, patient with DKA with pH 7.1, glucose almost 1200, BHOB 8.3, and anion gap 33. Also with chronic anemia likely due to ESRD, pseudo hyponatremia with initial sodium of 122 but corrected actually is 148. Phosphorus also noted to be elevated at 10.3. Nephrology was consulted and we will resume phosphate binders. Potassium initially elevated at 5.7 but this responded to insulin drip and single dose of Lokelma he already received. EKG shows sinus rhythm with first-degree AV block, incomplete left bundle branch block and left axis deviation that are chronic findings. He had a supratherapeutic INR at 3.9 so daily warfarin was held. He was started on DKA protocol and admitted to the ICU for further care. Serial labs were ordered and patient's anion gap closed. Insulin drip changed back to his insulin pump. He was instructed to keep the chamber filled and to keep the pump on continuous instead of manual. Diet resumed. He saw the critical care educator here. Patient with ESRD and Nephrology consulted to continue peritoneal dialysis. INR was supratherapeutic with INR to 7.4. Held warfarin and INR improved. Patient met criteria for sepsis on presentation. Although he did not had any obvious symptoms suggestive of infection but considering patient is high risk. Covid, influenza and RSV PCR negative. Elevated procalcitonin level to 2.2. WBC 11.7 but trended to normal. MRSA nasal swab positive. Chest x-ray showing a stable smallleft pleural effusion, stable airspace opacities in left mid and lower lung zones and cardiomegaly. BCx NGTD. Peritoneal fluid NGTD. Urine culture negative. He was on cefepime and doxycycline but stopped once culture results were negative. More likely patient with SIRS from DKA. He overall did well and was able to be discharged home on 05/30/24. Status at Discharge Cognitive/behavioral status at discharge: stable Time Spent with Patient Time attestation: Total time spent providing and/or coordinating discharge services: 35 minutes Time spent: Greater than 30 minutes Exam Narrative: AF 97.7 147/63 64 16 99% ra Gen - NARD Chest - CTA bilatrally, nml RR CV - RRR S1/S2. Tele showing PVCs Abd - Soft, NT, PD cath site clean and dry Ext - 1+ pedal edema Neuro - Alert and appropriate Psych - Nml mood and affect Skin - Warm and dry DS: Data Data Completed and Pending Labs on day of discharge: Labs from last 24 hours 05/30/24 05/30/24 05/30/24 11:13 07:27 05:36 WBC
== END 2024-05-30 15:18 | disposition home or self-care (01) ==
LOC: ANHED 10:38 → ANHICU 13:53 → ANHIMU 05-30 13:59 → ANHICU 05-31 07:16 → ANHIMU 05-31 07:16
PROVIDERS: Internal Medicine; Internal Medicine Nephrology; Nurse Practitioner; Admitting Provider Internal Medicine; Emergency Provider Emergency Medicine; PCP Family Medicine; Visit Provider Internal Medicine
DX: E10.22 Type 1 diabetes mellitus with diabetic chronic kidney disease (principal); E10.10 Type 1 diabetes mellitus with ketoacidosis without coma; I13.2 Hypertensive heart and chronic kidney disease with heart failure and with stage 5 chronic kidney disease, or end stage renal disease; E10.319 Type 1 diabetes mellitus with unspecified diabetic retinopathy without macular edema; E10.42 Type 1 diabetes mellitus with diabetic polyneuropathy; N18.6 End stage renal disease; I50.9 Heart failure, unspecified; E10.21 Type 1 diabetes mellitus with diabetic nephropathy; Z99.2 Dependence on renal dialysis; Z79.4 Long term (current) use of insulin; Z96.41 Presence of insulin pump (external) (internal); D63.1 Anemia in chronic kidney disease; A41.9 Sepsis, unspecified organism; I82.531 Chronic embolism and thrombosis of right popliteal vein; K21.9 Gastro-esophageal reflux disease without esophagitis; M10.9 Gout, unspecified; E78.5 Hyperlipidemia, unspecified; G47.33 Obstructive sleep apnea (adult) (pediatric); I48.0 Paroxysmal atrial fibrillation; N25.0 Renal osteodystrophy; E87.5 Hyperkalemia; I25.10 Atherosclerotic heart disease of native coronary artery without angina pectoris; R94.31 Abnormal electrocardiogram [ECG] [EKG]; E83.39 Other disorders of phosphorus metabolism; R79.89 Other specified abnormal findings of blood chemistry; Z20.822 Contact with and (suspected) exposure to COVID-19; Z79.01 Long term (current) use of anticoagulants; Z79.899 Other long term (current) drug therapy; Z95.1 Presence of aortocoronary bypass graft; Z59.10 Inadequate housing, unspecified; Z95.818 Presence of other cardiac implants and grafts
CPT/HCPCS: 36415; 36600; 71045; 80048; 80053; 81001; 82010; 82805; 82947; 82948; 83036; 83735; 84100; 84145; 85018; 85025; 85027; 85610; 87040; 87070; 87075; 87086; 87205; 87637; 87641; 89051; 90945; 93005; 94003; 94660; 96361; 96365; 96366; 96367; 96375; 96376; 97161; 99285; A9270; G0378; J0692; J1815; J2405; J3480; J7030

== ENCOUNTER 2024-06-06 14:12 | Observation (INO) | payer MEDICARE, MEDICAID, SELFPAY ==
[2024-06-06] VITALS (32 sets, daily range): BP systolic 133–154; BP diastolic 58–110; PULSE 57–80; RESP 12–22; TEMP 36.6–36.8; O2SAT 96–100
--- NOTE | ~2024-06-06 | XR_ITS ---
XR chest 2V 06/06/2024 14:40 Indication: Chest pain for 3 days. Triple bypass. Procedure: 2 views of the chest Comparison: Comparison to multiple prior studies sequentially, with oldest reviewed study dated 10/09. Findings: Status post median sternotomy for CABG. Cardiomegaly. Left basilar airspace disease, compat ible with pneumonia. Small left pleural effusion. Impression: 1: Left basilar airspace disease, compatible with pneumonia. 2: Small left pleural effusion. 3: Cardiomegaly. Reviewed, dictated and finalized at location B. Impression: 1: Left basilar airspace disease, compatible with pneumonia. 2: Small left pleural effusion. 3: Cardiomegaly.
--- NOTE | 2024-06-06 14:15 | ECG_ITS ---
Test Date: 2024-06-06 14:19:34 Measurements Intervals [place] Rate: 76 P: 14 OR: 184 QRS: -39 QRSD: 130 T: 120 QT: 417 QTc: 470 Interpretive Statements SINUS RHYTHM WITH OCCASIONAL VENTRICULAR PREMATURE COMPLEXES MARKED LEFT AXIS DEVIATION [QRS AXIS < -30] INCOMPLETE LEFT BUNDLE BRANCH BLOCK Compared to ECG 05/27/2024 09:45:42 Ventricular premature complex(es) now present Electronically Signed On 06-06-2024 14:26:28 CDT by Mesha Castro M.D.
[2024-06-06 14:37] LABS: Basophils Percent Auto 0.6 % (0.2-1.2); Eosinophils Absolute Auto 0.2 K/mm3 (0-0.3); Eosinophils Percent Auto 4.5 % (0-4.4); Hemoglobin 10.9 g/dL (14.0-18.0); Immature Granulocyte Absolute 0.02 K/mm3 (0.00-0.031); Immature Granulocyte Percent A 0.4 % (0-0.5); Lymphocytes Absolute Auto 1.34 K/mm3 (0.9-3.2); Lymphocytes Percent Auto 27.5 % (18.3-44.2); Mean Corpuscular Hemoglobin 30.9 pg (26-34); Mean Corpuscular Volume 93.5 fl (80-100); Mean Platelet Volume 10.2 fl (7.4-10.4); Monocytes Absolute Auto 0.8 K/mm3 (0.1-0.6); Monocytes Percent Auto 17.2 % (2.6-8.5); Neutrophils Absolute Auto 2.4 K/mm3 (1.3-6.7); Neutrophils Percent Auto 49.8 % (45.5-73.1); Platelet Count Result 201 k/mm3 (150-375); Red Blood Count 3.53 M/mm3 (4.6-6.20); White Blood Count 4.9 K/mm3 (4.5-10.0)
[2024-06-06 14:46] LABS: Prothrombin Time 22.9 Seconds (11.1-14.7)
[2024-06-06 14:47] LABS: Partial Thromboplastin Time 42.4 Seconds (22.3-36.8)
[2024-06-06 14:52] LABS: Alanine Aminotransferase 34 U/L (6-50); Alkaline Phosphatase 83 U/L (38-126); Anion Gap 10 mmol/L (4-12); Aspartate Amino Transferase 40 U/L (17-59); Bilirubin,Total 0.6 mg/dL (0.2-1.3); Blood Urea Nitrogen 72 mg/dL (9-20); Calcium 9.2 mg/dL (8.4-10.2); Carbon Dioxide 29 mmol/L (22-30); Chloride 97 mmol/L (98-107); Estimated CRCL calculation 15 ml/min; Estimated Glomerular Filt Rate 8; Glucose 180 mg/dL (65-110); Lipase 103 U/L (23-300); Potassium 3.6 mmol/L (3.4-5.0); Sodium 136 mmol/L (137-145)
[2024-06-06 15:09] LABS: Troponin I 0.061 ng/mL (0.000-0.034)
--- NOTE | 2024-06-06 15:29 | ED.CHESTPAIN ---
HPI - Chest Pain General Chief Complaint: Chest Pain Stated Complaint: chest pain Time Seen by Provider: 06/06/24 14:51 Source: patient and EMS Mode of arrival: EMS Limitations: no limitations History of Present Illness HPI narrative: Patient presents with complaint of chest pain of 3 days duration. His son who often helps him with peritoneal dialysis got into a car accident so Juvenal has had to lift the diasylate jugs himself so he attributed some of the pain to that/exertion. Yesterday he had a cough. He states he has a chronic cough but he was bringing up phlegm. No fevers. Wears CPAP at night and his sinuses have been dry. Cardiac history includes stents and CA and a triple bypass and valve replacement at [facility] in September 2023. Insulin dependent DM. Chest pain was described as a pressure but at times stabbing. Initially occurring on the right side of his chest (right hand dominant hence why he thought it might be musculoskeletal from exertion) but on the left side while in the ED. No palliating/provoking factors. 7/10 in severity when occurs. Episodes are intermittent, even occuring at rest, lasting </= 1 minutes then a lingering ache. No shortnesss of breath but the pain stopped him from speaking briefly while with the RN. Took 324 ASA today. On warfarin as anticoagulation. 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 No CP at the time of my exam. ESRD on peritoneal dialysis QHS. His session the night before was cut short due to an issue with the machine. He still makes urine. Is on torsemide daily. 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 Risk Factors: HLD - Yes HTN - Yes Smoker - No Obesity - Yes Family history - Father Related Data Home Medications Medication Instructions Recorded Confirmed calcitriol 0.25 mcg capsule 0.25 mcg PO QAM 06/04/19 06/06/24 ergocalciferol (vitamin D2) 1,250 50,000 unit PO WEEKLY 06/04/19 06/06/24 mcg (50,000 unit) capsule (Vitamin D2) nitroglycerin 0.4 mg sublingual 0.4 mg sublingual Q5-15M PRN Chest 06/04/19 06/06/24 tablet Pain ezetimibe 10 mg tablet (Zetia) 10 mg PO DAILY 09/09/19 06/06/24 cetirizine 10 mg tablet (All Day 10 mg PO DAILY 12/26/19 06/06/24 Allergy (cetirizine)) atorvastatin 80 mg tablet 80 mg PO DAILY 11/26/20 06/06/24 metoprolol succinate 50 mg 25 mg PO HS 05/20/23 06/06/24 tablet,extended release 24 hr potassium chloride 20 mEq 20 meq PO DAILY PRN Cramps 05/20/23 06/06/24 tablet,extended release febuxostat 40 mg tablet 40 mg PO QPM 07/25/23 06/06/24 gemfibrozil 600 mg tablet 600 mg PO Q12H 07/25/23 06/06/24 linaclotide 72 mcg capsule 72 mcg PO DAILY PRN Diarrhea 07/25/23 06/06/24 (Linzess) icosapent ethyl 1 gram capsule 1 g PO Q12H 02/16/24 06/06/24 (Vascepa) torsemide 100 mg tablet 100 mg PO DAILY 02/16/24 06/06/24 moxifloxacin 0.5 % eye drops 1 drp LEFT EYE QID 05/27/24 06/06/24 meloxicam 7.5 mg tablet 7.5 mg PO DAILY 06/06/24 06/06/24 omeprazole 20 mg capsule,delayed 20 mg PO DAILY 06/06/24 06/06/24 release Allergies Allergy/AdvReac Type Severity Reaction Status Date / Time allopurinol Allergy Severe Other Verified 05/27/24 12:13 iodine Allergy Severe Rash Verified 05/27/24 12:13 iohexol Allergy Severe Difficulty Verified 05/27/24 12:13 [From CONTRAST - CT, XRAY] Breathing ticagrelor Allergy Intermediate Rash Verified 05/27/24 12:13 [facility] Past Medical History Medical History (Updated 06/07/24 @ 21:58 by Suzanen Vega MD) Anemia in chronic kidney disease Anxiety Arthritis Chronic anticoagulation Congestive heart failure Echocardiogram May 2017 EF of 50% with hypokinetic apical, inferior and basal inferior lateral segment, mild enlargement of left atrium. Coronary artery disease History of several stents including complex procedure at [facility]/ stenting of a heavily calcified CX on OM using shockwave treatment. Deep venous thrombosis Chronic right popliteal DVT. Diabetic peripheral neuropathy Diabetic
--- NOTE | 2024-06-06 17:32 | ECG_ITS ---
Test Date: 2024-06-06 17:56:24 Measurements Intervals [place] Rate: 73 P: 43 [place]: 202 QRS: -38 QRSD: 124 T: 124 QT: 443 QTc: 491 Interpretive Statements SINUS RHYTHM WITH FREQUENT VENTRICULAR PREMATURE COMPLEXES LEFT AXIS DEVIATION [QRS AXIS < -30] INCOMPLETE LEFT BUNDLE BRANCH BLOCK Compared to ECG 06/06/2024 14:19:34 NO SIGNIFICANT CHANGES Electronically Signed On 06-07-2024 13:34:47 CDT by Mesha Castro M.D.
--- NOTE | 2024-06-06 17:35 | PM.IMHP ---
H&P: HPI History of Present Illness Date/Time: 06/06/24 20:00 Chief Complaint: Chest pain. Narrative: This is a 53-year-old male with type 1 diabetes mellitus, coronary artery disease, hypertension, obstructive sleep apnea, paroxysmal atrial fibrillation on chronic anticoagulation, end-stage renal disease on peritoneal dialysis, chronic anemia, and other comorbidities who presented to the emergency department for evaluation of chest pain. The patient provides the following history. He was recently hospitalized with diabetic ketoacidosis and was discharged on 05/30/2024. He was feeling okay up until the last couple of days when he developed chest pain at rest. He describes a constant, aching pain diffusely across the anterior chest radiating to just under the left axilla. It is not significant enough for him to take analgesics. He has not noticed that anything makes it better or worse. After speaking with his doctor he was told to come to the ED for evaluation. With further questioning he endorses a chronic cough which is unchanged. The chest pain is not pleuritic. He is wondering if it may be due to muscle strain as he has been moving and lifting the boxes containing his dialysate this past week as his son has been injured and he typically does the lifting. He denies fever, chills, sweats, sinus congestion, sore throat, dysphagia, concerns for aspiration, palpitations, orthopnea, paroxysmal nocturnal dyspnea, lower extremity edema, epigastric and abdominal pain, bloating, belching, nausea, vomiting, and diarrhea. In the ED: Blood pressure was 154/110 on arrival. He is afebrile and in sinus rhythm. Labs were significant for WBC count of 4.9, hemoglobin 10.9, INR 2.0, sodium 136, potassium 3.6, BUN 72, creatinine 6.80, glucose 180, troponin 0.061. EKG showed sinus rhythm with occasional PVCs, left axis deviation, and incomplete left bundle branch block. Chest x-ray showed left basilar airspace disease compatible with pneumonia, small left pleural effusion, and cardiomegaly. He has been started on ceftriaxone and doxycycline and he is being admitted in this setting for close monitoring and trend troponins at the request of the ED physician given his history. Review of Systems Review of Systems: 12 systems were reviewed and are negative except for as per HPI. [facility] Past Medical History Medical History Anemia in chronic kidney disease Anxiety Arthritis Chronic anticoagulation Congestive heart failure Echocardiogram May 2017 EF of 50% with hypokinetic apical, inferior and basal inferior lateral segment, mild enlargement of left atrium. Coronary artery disease History of several stents including complex procedure at [place] w/ stenting of a heavily calcified CX on OM using shockwave treatment. Deep venous thrombosis Chronic right popliteal DVT. Diabetic peripheral neuropathy Diabetic retinopathy End-stage renal disease on peritoneal dialysis Essential hypertension Gastroesophageal reflux disease Gout Hyperlipidemia Obstructive sleep apnea With inconsistent CPAP use. Paroxysmal atrial fibrillation Renal osteodystrophy Secondary hyperparathyroidism of renal origin Seizure X1 with etiology unknown Type 1 diabetes mellitus Onset around age 13. Surgical History Surgical History History of anterior cruciate ligament surgery (2000) Left knee History of appendectomy (2006) History of arthroscopy of left knee History of bilateral carpal tunnel release Right 05/03/2018. Left 06/02/2018. History of cardiac catheterization 01/21/2021 catheterization at [facility], Dr. Hoover done: Little change from prior catheterization. Patent stents in the RCA and PDA. Previously jailed posterolateral is occluded and development of a 50% stenosis of a branch of om 1. Normal LV function. :August 2019 demonstrated patent stents with 4
--- NOTE | 2024-06-06 18:43 | ADMGEN ---
This patient, Juvenal Daigle Jr., was admitted to IMU Room 213-01. Patient/family oriented to hospital policies and general routines including ID bracelet, bed and alarms, visiting hours, pain management, procedures, bathroom and other care routines, personal items, smoking policy, room service/diet, and visiting hours. Information on how to activate the Rapid Response Team has been discussed. Patient/Family are encouraged to report perceived risks to care and to ask questions if they do not understand what they are told or what they should do.
[2024-06-06] MEDS: DOXYCYCLINE 100 MG/NS 100 ML 100 MG/100 ML BAG IVPB (18:48)
[2024-06-06] MEDS: GENTAMICIN SULFATE 0.1% CR 15 GM TUBE 1 APPLIC TOPICAL (19:26)
--- NOTE | 2024-06-06 19:54 | ECG_ITS ---
Test Date: 2024-06-06 21:16:46 Measurements Intervals [place] Rate: 71 P: 42 [place]: 215 QRS: -28 QRSD: 137 T: 128 QT: 437 QTc: 475 Interpretive Statements SINUS RHYTHM WITH FIRST DEGREE AV BLOCK WITH OCCASIONAL VENTRICULAR PREMATURE COMPLEXES INCOMPLETE LEFT BUNDLE BRANCH BLOCK Compared to ECG 06/06/2024 17:56:24 NO SIGNIFICANT CHANGES Electronically Signed On 06-07-2024 13:37:14 CDT by Mesha Castro M.D.
[2024-06-06 20:51] LABS: Troponin I 0.068 ng/mL (0.000-0.034)
--- NOTE | 2024-06-06 22:10 | PC.NURSE ---
2100: Notified provider of CGM and insulin pump. Pump settings are as follows: [id number]: 2.25 units [id number]: 1 unit Patient provided with insulin pump worksheet. Consent for patient continuous glucose monitoring obtained and put in chart.
[2024-06-07] VITALS (11 sets, daily range): BP systolic 147–159; BP diastolic 57–77; PULSE 61–72; RESP 16–20; TEMP 36.7–36.9; O2SAT 99–100
[2024-06-07] MEDS: HYDROcodone/acetaminophen (*CRX) 5-325 MG TABLET 1 TAB PO (00:53)
[2024-06-07] MEDS: METOPROLOL SUCCINATE EXT REL 25 MG TABCR PO (00:53)
[2024-06-07] MEDS: LEVOTHYROXINE SODIUM 25 MCG TABLET PO (06:27)
--- NOTE | 2024-06-07 08:29 | PM.IMPN ---
Progress Note: A&P Assessment and Plan (1) Left lower lobe pneumonia: Code(s): J18.9 - Pneumonia, unspecified organism Status: Acute (2) Chest pain at rest: Code(s): R07.9 - Chest pain, unspecified Status: Acute (3) End-stage renal disease on peritoneal dialysis: Code(s): N18.6 - End stage renal disease; Z99.2 - Dependence on renal dialysis Status: Acute (4) Type 1 diabetes mellitus: Qualifiers: Diabetes mellitus complication detail: without coma Diabetes mellitus complication status: with ketoacidosis Qualified Code(s): E10.10 - Type 1 diabetes mellitus with ketoacidosis without coma Code(s): E10.9 - Type 1 diabetes mellitus without complications Status: Acute (5) Coronary artery disease: Qualifiers: Associated angina: with stable angina Coronary Disease-Associated Artery/Lesion type: [place] artery [place] vs. transplanted heart: [place] heart Qualified Code(s): I25.118 - Atherosclerotic heart disease of [place] coronary artery with other forms of angina pectoris Code(s): I25.10 - Atherosclerotic heart disease of [place] coronary artery without angina pectoris Status: Chronic (6) Anemia in chronic kidney disease: Qualifiers: Chronic kidney disease stage: on chronic dialysis Qualified Code(s): N18.6 - End stage renal disease; D63.1 - Anemia in chronic kidney disease; Z99.2 - Dependence on renal dialysis Code(s): N18.9 - Chronic kidney disease, unspecified; D63.1 - Anemia in chronic kidney disease Status: Chronic (7) Chronic anticoagulation: Code(s): Z79.01 - penitentiary (current) use of anticoagulants Status: Acute (8) Paroxysmal atrial fibrillation: Code(s): I48.0 - Paroxysmal atrial fibrillation Status: Acute Plan This is a 53-year-old male who was recently hospitalized for diabetic ketoacidosis 1 and discharged on 05/30/2024 present that with chest pain at rest. Described as constant achy pain diffusely across the anterior chest radiating to just under the left axilla. No aggravating or relieving factor. He has been moving and lifting boxes containing his dialysate this past week as his son has been injured and he typically does the lifting. No fever chills cough sinus congestion sore throat dysphagia. With type 1 diabetes mellitus, coronary artery disease, hypertension, obstructive sleep apnea, paroxysmal atrial fibrillation on chronic anticoagulation, end-stage renal disease on peritoneal dialysis, chronic anemia, and other comorbidities who presented to the emergency department for evaluation of chest pain. In the ED: Blood pressure was 154/110 on arrival. He is afebrile and in sinus rhythm. Labs were significant for WBC count of 4.9, hemoglobin 10.9, INR 2.0, sodium 136, potassium 3.6, BUN 72, creatinine 6.80, glucose 180, troponin 0.061. EKG showed sinus rhythm with occasional PVCs, left axis deviation, and incomplete left bundle branch block. Chest x-ray showed left basilar airspace disease compatible with pneumonia, small left pleural effusion, and cardiomegaly. Atypical chest pain troponin mildly elevated and remains flat. Likely due to underlying renal disease. Chest pain could be musculoskeletal in origin. Chest x-ray does reveal left basilar pneumonia and will empirically treat for pneumonia with ceftriaxone and doxycycline. Sputum culture. Urine antigens. These are chronic changes as well. Complete antibiotic course at discharge. Diabetes type 1 on insulin which is resumed on insulin pump Proximal atrial fibrillation on chronic anticoagulation End-stage renal disease on peritoneal dialysis Chronic anemia Obstructive sleep apnea on CPAP Hypertension Coronary artery disease DVT prophylaxis on warfarin Code status full code Subjective Date/time seen: 06/07/24 08:29 Interval history: Chart reviewed. No overnight events. Feeling better. No cough. Review of Systems Re
[2024-06-07] MEDS: PANTOPRAZOLE 40 MG TABLET PO (09:01)
[2024-06-07] MEDS: MELOXICAM 7.5 MG TABLET PO (09:01)
[2024-06-07] MEDS: EZETIMIBE 10 MG TABLET PO (09:01)
[2024-06-07] MEDS: TORSEMIDE 20 MG TABLET 100 MG PO (09:01)
--- NOTE | 2024-06-07 09:01 | PM.CNNEP ---
Assessment and Plan Assessment and plan (1) End stage renal disease: Code(s): N18.6 - End stage renal disease Status: Chronic Assessment and Plan: continue nightly CCPD while hospitalized follow electrolytes, volume status, and clearance (2) Chest pain at rest: Code(s): R07.9 - Chest pain, unspecified Status: Acute Assessment and Plan: known history of CAD and cardiomyopathy has had previous stenting and is s/p CABG x 3 last echo with EF 20 - 25% atypical from description troponins noted Cardiology consulted (3) Pneumonia: Qualifiers: Laterality: left Lung location: lower lobe of lung Pneumonia type: due to unspecified organism Qualified Code(s): J18.9 - Pneumonia, unspecified organism Code(s): J18.9 - Pneumonia, unspecified organism Status: Acute Assessment and Plan: admission CXR findings noted follow blood cultures on antibiotics (4) Anemia: Code(s): D64.9 - Anemia, unspecified Status: Chronic Assessment and Plan: due to ESRD resume Epogen while hospitalized follow trend of H/H (5) Hypertension: Code(s): I10 - Essential (primary) hypertension Status: Chronic Assessment and Plan: good control at this time follow trend of hemodynamics (6) Type 1 diabetes mellitus: Code(s): E10.9 - Type 1 diabetes mellitus without complications Status: Chronic Assessment and Plan: follow accu-cheks glycemic control per hospitalist I will continue follow the patient with you while he remains hospitalized and make further recommendations as deemed necessary. Thank you for allowing me to participate in the care this patient. History of Present Illness Reason for Consult Consult date: 06/07/24 Reason for consult: end stage renal disease Chief Complaint Chief complaint: NSTEMI/Community Acquired Pneumonia/ESRD on [place] History of Present Illness Narrative: The patient is a 53-year-old male with a past medical history as outlined below who presented to [facility] Emergency Room for further evaluation of chest pain. The patient reports the last few days he has developed chest pain at rest. Describes the chest pain is a constant aching pain diffusely across his anterior chest with radiation to his left axilla. No reported alleviating or aggravating factors and he is not taking any specific medications for this pain. Associated with the chest discomfort is a mild shortness of breath and a chronic cough but he thought the chest pain symptom was related to a possible muscle strain from the coughing and/or the recent moving/lifting of his boxes of peritoneal dialysis fluid -- his son usually helps him with lifting these boxes but his son has been injured and is unable to do so recently. He reports no other subjective symptoms with regard to fevers, chills, diaphoresis, sore throat, palpitations, worsening lower extremity edema, abdominal pain, nausea, or vomiting. He consulted his primary care physician with regard to these symptons and he was recommended to go to the emergency room for further assessment given his known history of coronary artery disease and ischemic cardiomyopathy. Workup and evaluation emergency room demonstrated the patient to be hemodynamically stable if not a bit hypertensive and afebrile. Routine blood work was significant for a normal white blood cell count, relative anemia, and a chemistry consistent with his known history of end-stage renal disease. His initial troponin was mildly elevated and his EKG showed sinus rhythm with occasional PVCs and no evidence of acute ischemia. His chest x-ray showed a left basilar airspace disease compatible with pneumonia along with a small left pleural effusion and cardiomegaly. Given his extensive cardiac history with regard to coronary artery disease and ischemic cardiomyopathy as well as aortic stenosis khang
[2024-06-07] MEDS: OMEGA 3 POLYUNSAT FATTY ACIDS 1 GM CAP PO (09:02)
[2024-06-07] MEDS: calcitrioL 0.25 MCG CAPSULE PO (09:02)
[2024-06-07] MEDS: MOXIFLOXACIN HCL 0.5% 3 ML OPHTH SOLN 1 DROP LEFT EYE (09:02)
[2024-06-07] MEDS: LORATADINE 10 MG TABLET PO (09:02)
[2024-06-07] MEDS: ATORVASTATIN 40 MG TABLET 80 MG PO (09:02)
[2024-06-07] MEDS: gemfibroziL 600 MG TABLET PO (09:02)
--- NOTE | 2024-06-07 09:28 | PM.CNCAR ---
Assessment and Plan Assessment and plan (1) Chest pain at rest: Code(s): R07.9 - Chest pain, unspecified Status: Acute Assessment and Plan: Atypical chest pain that is not cardiac in etiology. Most likely musculoskeletal. His troponin levels are mildly elevated and likely will always be somewhat elevated because of his end stage renal disease. Elevated, flat troponin levels in this situation do not represent ACS. No further cardiac workup recommended. (2) Coronary artery disease: Qualifiers: Coronary Disease-Associated Artery/Lesion type: [place] artery [place] vs. transplanted heart: [place] heart Associated angina: with stable angina Qualified Code(s): I25.118 - Atherosclerotic heart disease of [place] coronary artery with other forms of angina pectoris Code(s): I25.10 - Atherosclerotic heart disease of [place] coronary artery without angina pectoris Status: Chronic Assessment and Plan: History of coronary artery disease with previous stenting now s/p CABG x 3 at [facility] earlier this year. Coronary disease is stable. Continue high intensity statin, zetia. Not on ASA as he is on warfarin (3) Aortic stenosis: Code(s): I35.0 - Nonrheumatic aortic (valve) stenosis Status: Acute Assessment and Plan: S/p mechanical AVR. Continue warfarin with INR goal 2.5 - 3.5. (4) Ischemic cardiomyopathy: Code(s): I25.5 - Ischemic cardiomyopathy Status: Acute Assessment and Plan: EF 20-25%. Clinically he is not in heart failure. Continue GDMT with Toprol - use of other agents for his CMY limited due to his renal function. Plan He is stable for discharge from a cardiac standpoint. Discussed with Hospitalist. History of Present Illness History of Present Illness Consult date/time: 06/07/24 09:28 Requesting physician: Betsey Posada PA-C Consult reason: chest pain Reason For Visit: NSTEMI/Community Acquired Pneumonia/ESRD on [place] Narrative: Juvenal Daigle is a 53 year old male with coronary artery disease status post CABG x 3 in September 2023, aortic stenosis with mechanical AVR also in September 2023, ischemic cardiomyopathy, paroxysmal atrial fibrillation, end stage renal disease, and diabetes type 1. He presents to the hospital because of chest pain. He has been experiencing precordial pain he describes as starting in his right axilla and extending across his pectoral muscles. He feels as though the pain is muscle soreness as he has been lifting heavy boxes over the past week. He denies any other symptoms and has otherwise been in his usual state of health. He is currently free from any chest discomfort and has no complaints. Review of Systems Review of Systems: All systems reviewed & are unremarkable except as noted in HPI and below PMFSH Past Medical History Medical History Anemia in chronic kidney disease Anxiety Arthritis Chronic anticoagulation Congestive heart failure Echocardiogram May 2017 EF of 50% with hypokinetic apical, inferior and basal inferior lateral segment, mild enlargement of left atrium. Coronary artery disease History of several stents including complex procedure at [facility]/ stenting of a heavily calcified CX on OM using shockwave treatment. Deep venous thrombosis Chronic right popliteal DVT. Diabetic peripheral neuropathy Diabetic retinopathy End-stage renal disease on peritoneal dialysis Essential hypertension Gastroesophageal reflux disease Gout Hyperlipidemia Obstructive sleep apnea With inconsistent CPAP use. Paroxysmal atrial fibrillation Renal osteodystrophy Secondary hyperparathyroidism of renal origin Seizure X1 with etiology unknown Type 1 diabetes mellitus Onset around age 13. Surgical History Surgical History History of anterior cruciate ligament surgery (2000) Left knee History
[2024-06-07 10:09] LABS: Basophils Percent Auto 0.7 % (0.2-1.2); Eosinophils Absolute Auto 0.2 K/mm3 (0-0.3); Hematocrit 29.6 % (42.0-52.0); Hemoglobin 9.6 g/dL (14.0-18.0); Immature Granulocyte Absolute 0.01 K/mm3 (0.00-0.031); Immature Granulocyte Percent A 0.2 % (0-0.5); Lymphocytes Absolute Auto 1.31 K/mm3 (0.9-3.2); Lymphocytes Percent Auto 28.7 % (18.3-44.2); Mean Corpuscular HGB Conc 32.4 g/dl (32-36); Mean Corpuscular Hemoglobin 30.3 pg (26-34); Mean Corpuscular Volume 93.4 fl (80-100); Monocytes Absolute Auto 0.7 K/mm3 (0.1-0.6); Monocytes Percent Auto 14.5 % (2.6-8.5); Neutrophils Absolute Auto 2.3 K/mm3 (1.3-6.7); Neutrophils Percent Auto 50.9 % (45.5-73.1); Platelet Count Result 193 k/mm3 (150-375); Red Blood Count 3.17 M/mm3 (4.6-6.20); Red Cell Distribution Width 14.8 % (11.5-14.5); White Blood Count 4.6 K/mm3 (4.5-10.0)
[2024-06-07 10:23] LABS: Alanine Aminotransferase 29 U/L (6-50); Albumin Level 3.6 g/dL (3.5-5.1); Alkaline Phosphatase 76 U/L (38-126); Anion Gap 10 mmol/L (4-12); Aspartate Amino Transferase 44 U/L (17-59); Bilirubin,Total 0.4 mg/dL (0.2-1.3); Blood Urea Nitrogen 64 mg/dL (9-20); Carbon Dioxide 28 mmol/L (22-30); Chloride 97 mmol/L (98-107); Estimated CRCL calculation 16 ml/min; Estimated Glomerular Filt Rate 8; Glucose 202 mg/dL (65-110); Magnesium 1.8 mg/dL (1.6-2.3); Phosphorus 5.4 mg/dL (2.5-4.5); Potassium 3.8 mmol/L (3.4-5.0); Sodium 135 mmol/L (137-145)
--- NOTE | 2024-06-07 11:57 | PM.DS ---
DS: Admitting Diagnosis Discharge Date 06/07/2024 Admitting Diagnosis Chest pain DS: Discharge Diagnosis Discharge Diagnosis (1) Left lower lobe pneumonia: Code(s): J18.9 - Pneumonia, unspecified organism Status: Acute (2) Chest pain at rest: Code(s): R07.9 - Chest pain, unspecified Status: Acute (3) End-stage renal disease on peritoneal dialysis: Code(s): N18.6 - End stage renal disease; Z99.2 - Dependence on renal dialysis Status: Acute (4) Type 1 diabetes mellitus: Qualifiers: Diabetes mellitus complication status: with ketoacidosis Diabetes mellitus complication detail: without coma Qualified Code(s): E10.10 - Type 1 diabetes mellitus with ketoacidosis without coma Code(s): E10.9 - Type 1 diabetes mellitus without complications Status: Acute (5) Coronary artery disease: Qualifiers: Coronary Disease-Associated Artery/Lesion type: [place] artery [place] vs. transplanted heart: [place] heart Associated angina: with stable angina Qualified Code(s): I25.118 - Atherosclerotic heart disease of [place] coronary artery with other forms of angina pectoris Code(s): I25.10 - Atherosclerotic heart disease of [place] coronary artery without angina pectoris Status: Chronic (6) Anemia in chronic kidney disease: Qualifiers: Chronic kidney disease stage: on chronic dialysis Qualified Code(s): N18.6 - End stage renal disease; D63.1 - Anemia in chronic kidney disease; Z99.2 - Dependence on renal dialysis Code(s): N18.9 - Chronic kidney disease, unspecified; D63.1 - Anemia in chronic kidney disease Status: Chronic (7) Chronic anticoagulation: Code(s): Z79.01 - care home (current) use of anticoagulants Status: Acute (8) Paroxysmal atrial fibrillation: Code(s): I48.0 - Paroxysmal atrial fibrillation Status: Acute DS: Summary Hospital Course Hospital Course: This is a 53-year-old male who was recently hospitalized for diabetic ketoacidosis 1 and discharged on 05/30/2024 present that with chest pain at rest. Described as constant achy pain diffusely across the anterior chest radiating to just under the left axilla. No aggravating or relieving factor. He has been moving and lifting boxes containing his dialysate this past week as his son has been injured and he typically does the lifting. No fever chills cough sinus congestion sore throat dysphagia. With type 1 diabetes mellitus, coronary artery disease, hypertension, obstructive sleep apnea, paroxysmal atrial fibrillation on chronic anticoagulation, end-stage renal disease on peritoneal dialysis, chronic anemia, and other comorbidities who presented to the emergency department for evaluation of chest pain. In the ED: Blood pressure was 154/110 on arrival. He is afebrile and in sinus rhythm. Labs were significant for WBC count of 4.9, hemoglobin 10.9, INR 2.0, sodium 136, potassium 3.6, BUN 72, creatinine 6.80, glucose 180, troponin 0.061. EKG showed sinus rhythm with occasional PVCs, left axis deviation, and incomplete left bundle branch block. Chest x-ray showed left basilar airspace disease compatible with pneumonia, small left pleural effusion, and cardiomegaly. Atypical chest pain troponin mildly elevated and remains flat. Likely due to underlying renal disease. Chest pain could be musculoskeletal in origin. Chest x-ray does reveal left basilar pneumonia and will empirically treat for pneumonia with ceftriaxone and doxycycline. Sputum culture. Urine antigens. These are chronic changes as well was recently treated for pneumonia. WBC count was normal and remained afebrile. Antibiotics were not continued. Diabetes type 1 on insulin which is resumed on insulin pump Proximal atrial fibrillation on chronic anticoagulation End-stage renal disease on peritoneal dialysis Chronic anemia Obstructive sleep apnea on CPAP Hypertension Coronary artery disease DVT pro
--- NOTE | 2024-06-07 12:28 | PC.NURSE ---
Reviewed all discharge instructions including medication instructions along with last dose given. Verbalizes understanding related to discharge instructions at this time and denies further questions or concerns at this time. Patient states he is calling an [employer] for transportation home . Instructed him to use his call light when his ride has arrived and we will assist him out of the building. Verbalizes understanding at this time.
== END 2024-06-07 12:37 | disposition home or self-care (01) ==
LOC: ANHED 15:34 → ANHIMU 19:00
PROVIDERS: Emergency Medicine; Internal Medicine Nephrology; Admitting Provider Family Medicine; Emergency Provider Student in an Organized Health Care Education/Training Program; PCP Family Medicine; Visit Provider Internal Medicine
DX: J18.9 Pneumonia, unspecified organism (principal); R07.89 Other chest pain; I25.118 Atherosclerotic heart disease of native coronary artery with other forms of angina pectoris; I25.2 Old myocardial infarction; I35.0 Nonrheumatic aortic (valve) stenosis; I25.5 Ischemic cardiomyopathy; E10.10 Type 1 diabetes mellitus with ketoacidosis without coma; I13.2 Hypertensive heart and chronic kidney disease with heart failure and with stage 5 chronic kidney disease, or end stage renal disease; I50.9 Heart failure, unspecified; E10.22 Type 1 diabetes mellitus with diabetic chronic kidney disease; E10.42 Type 1 diabetes mellitus with diabetic polyneuropathy; E10.319 Type 1 diabetes mellitus with unspecified diabetic retinopathy without macular edema; N18.6 End stage renal disease; Z99.2 Dependence on renal dialysis; I48.0 Paroxysmal atrial fibrillation; J91.8 Pleural effusion in other conditions classified elsewhere; E66.9 Obesity, unspecified; Z68.41 Body mass index [BMI] 40.0-44.9, adult; E78.00 Pure hypercholesterolemia, unspecified; E78.5 Hyperlipidemia, unspecified; R05.3 Chronic cough; D63.1 Anemia in chronic kidney disease; N25.81 Secondary hyperparathyroidism of renal origin; K21.9 Gastro-esophageal reflux disease without esophagitis; M10.9 Gout, unspecified; G47.33 Obstructive sleep apnea (adult) (pediatric); I82.531 Chronic embolism and thrombosis of right popliteal vein; Z79.01 Long term (current) use of anticoagulants; Z79.4 Long term (current) use of insulin; Z96.41 Presence of insulin pump (external) (internal); Z79.51 Long term (current) use of inhaled steroids; Z79.899 Other long term (current) drug therapy; Z96.1 Presence of intraocular lens; Z98.49 Cataract extraction status, unspecified eye; Z95.1 Presence of aortocoronary bypass graft; Z95.2 Presence of prosthetic heart valve; Z95.5 Presence of coronary angioplasty implant and graft
CPT/HCPCS: 36415; 71046; 80053; 83690; 83735; 84100; 84484; 85025; 85610; 85730; 90945; 93005; 96365; 96367; 99285; A9270; G0378; J0696

== ENCOUNTER 2024-07-12 10:41 | Emergency (ER) | payer MEDICARE, MEDICAID, SELFPAY ==
[2024-07-12] VITALS (21 sets, daily range): BP systolic 136–176; BP diastolic 74–90; PULSE 64–72; RESP 13–22; TEMP 36.6; O2SAT 90–99
--- NOTE | ~2024-07-12 | CT_ITS ---
Non-contrast CT scan of the Abdomen and Pelvis Clinical indication: Kidney stone Technique: 2.5 mm axial scans were obtained through the abdomen and pelvis without intravenous or or al contrast. Dose reduction technique was used on this scan by utilizing automated exposure control a nd iterative reconstruction technique. The dose-length product (DLP) was 1413.88 mGy-cm. COMPARISON: 06/02/2022 Findings: Images through the lung bases reveal [id number] left pleural effusion with discoid bibasilar atelectasis or scarring.. No renal ureteral stone seen. There is minimal fullness of the right renal collecting system and righ t ureter, possibly due to recently passed stone. No left hydronephrosis. The liver, spleen, pancreas, and adrenals appear normal. Small gallstones are present. There are athe rosclerotic calcifications of the aorta. . There is no evidence of bowel obstruction. Small amount of abdominopelvic ascites present. Peritoneal dialysis catheter present. There is probable umbilical hernia containing fat and fluid, similar appe arance to prior exam. Images through the pelvis were performed. Urinary bladder unremarkable. No pelvic mass seen. Impression: Mild fullness of the right renal collecting system and right ureter, possibly due to recently passed stone. No stones seen currently. Ascites is probably related to peritoneal dialysis. Stable appearing umbilical hernia with fat and fluid. Cholelithiasis. [place], [place] [facility] [place] [facility] Impression: Mild fullness of the right renal collecting system and right ureter, possibly d ue to recently passed stone. No stones seen currently. Ascites is probably related to peritoneal dialysis. Stable appearing umbilical hernia with fat and fluid. Cholelithiasis.
--- NOTE | 2024-07-12 11:24 | ED_ITS ---
HPI - General Adult General Chief complaint: Nausea/Vomiting/Diarrhea Stated complaint: flank pain, N/V Time Seen by Provider: 07/12/24 11:12 Source: patient Mode of arrival: ambulatory Limitations: no limitations History of Present Illness HPI narrative: Patient is a 53-year-old male who presents to the ER with right flank pain that started abruptly this morning. He has a history of CHF, diabetes, PD dialysis and aortic valve replacement. Patient reports he has never had a kidney stone before. He has not noticed any blood in his urine. Patient endorses pain that radiates towards his abdomen. He reports he is on PD dialysis due to kidney failure from diabetes. Patient has no complaints of chest pain, abdominal pain, or urinary symptoms. He endorses nausea but denies vomiting. Related Data Home Medications Medication Instructions Recorded Confirmed calcitriol 0.25 mcg capsule 0.25 mcg PO QAM 06/04/19 06/06/24 ergocalciferol (vitamin D2) 1,250 50,000 unit PO WEEKLY 06/04/19 06/06/24 mcg (50,000 unit) capsule (Vitamin D2) nitroglycerin 0.4 mg sublingual 0.4 mg sublingual Q5-15M PRN Chest 06/04/19 06/06/24 tablet Pain ezetimibe 10 mg tablet (Zetia) 10 mg PO DAILY 09/09/19 06/06/24 cetirizine 10 mg tablet (All Day 10 mg PO DAILY 12/26/19 06/06/24 Allergy (cetirizine)) atorvastatin 80 mg tablet 80 mg PO DAILY 11/26/20 06/06/24 metoprolol succinate 50 mg 25 mg PO HS 05/20/23 06/06/24 tablet,extended release 24 hr potassium chloride 20 mEq 20 meq PO DAILY PRN Cramps 05/20/23 06/06/24 tablet,extended release febuxostat 40 mg tablet 40 mg PO QPM 07/25/23 06/06/24 gemfibrozil 600 mg tablet 600 mg PO Q12H 07/25/23 06/06/24 linaclotide 72 mcg capsule 72 mcg PO DAILY PRN Diarrhea 07/25/23 06/06/24 (Linzess) icosapent ethyl 1 gram capsule 1 g PO Q12H 02/16/24 06/06/24 (Vascepa) torsemide 100 mg tablet 100 mg PO DAILY 02/16/24 06/06/24 moxifloxacin 0.5 % eye drops 1 drp LEFT EYE QID 05/27/24 06/06/24 meloxicam 7.5 mg tablet 7.5 mg PO DAILY 06/06/24 06/06/24 omeprazole 20 mg capsule,delayed 20 mg PO DAILY 06/06/24 06/06/24 release Allergies Allergy/AdvReac Type Severity Reaction Status Date / Time allopurinol Allergy Severe Other Verified 07/12/24 11:31 iodine Allergy Severe Rash Verified 07/12/24 11:31 iohexol Allergy Severe Difficulty Verified 07/12/24 11:31 [From CONTRAST - CT, XRAY] Breathing ticagrelor Allergy Intermediate Rash Verified 07/12/24 11:31 Review of Systems Review of Systems: All systems reviewed & are unremarkable except as noted in HPI and below PMFSH Past Medical History Medical History Anemia in chronic kidney disease Anxiety Arthritis Chronic anticoagulation Congestive heart failure Echocardiogram May 2017 EF of 50% with hypokinetic apical, inferior and basal inferior lateral segment, mild enlargement of left atrium. Coronary artery disease History of several stents including complex procedure at [facility]/ stenting of a heavily calcified CX on OM using shockwave treatment. Deep venous thrombosis Chronic right popliteal DVT. Diabetic peripheral neuropathy Diabetic retinopathy End-stage renal disease on peritoneal dialysis Essential hypertension Gastroesophageal reflux disease Gout Hyperlipidemia Insulin dependent diabetes mellitus Obstructive sleep apnea With inconsistent CPAP use. Paroxysmal atrial fibrillation Renal osteodystrophy Right hand dominant Secondary hyperparathyroidism of renal origin Seizure X1 with etiology unknown Type 1 diabetes mellitus Onset around age 13. Surgical History Surgical History History of anterior cruciate ligament surgery (2000) Left knee History of appendectomy (2006) History of arthroscopy of left knee History of bilateral carpal tunnel release Right 05/03/2018. Left 06/02/2018. History of cardiac catheterization 01/21/2021 catheterization at [facility], Dr. Hoover done: Little change from prior catheterization. Patent stents in the RCA and PDA. P reviously jailed posterolateral is occluded and development of a 50% stenosis of a branch of om 1. Normal LV function. :August 2019 demonstrated patent stents with 40% stenosis of 1 vessel with no stents or angioplasty performed per patient report. :November 2018 at [facility] - stent x3. :March 2017 demonstrating mild diffuse coronary disease 80% lesion small sub branch of obtuse marginal 1 and 90% stenosis distal RCA into the origin of the PDA with PTCA and stent to the RPDA/distal RCA performed by Dr. Petit. History of cataract extraction With lens implant History of coronary angioplasty with insertion of stent Drug-eluting stents for high-grade OM 99% occlusion 05/2022. History of hernia repair History of open reduction and internal fixation (ORIF) procedure (1982) Left lower extremity fracture. And the right hip pinning when he was in the 8th grade Peritoneal dialysis catheter in place S/P triple vessel bypass Sep 2023; [facility] Family History Family History Father , in his late 60s Acute myocardial infarction Premature coronary artery disease; <65yo CHF (congestive heart failure) Dementia Hypertension S/P triple vessel bypass Mother Lung cancer Hypertension Daughter Celiac disease Social History Social History Social History: Surrogate medical decision maker: Hodanaldo Daigle (daughter) or Lorne Daigle (brother). Code status: Full code. Smoking status: Never smoker Second hand tobacco smoke exposure: No Alcohol intake: never Substance use: never Substance use type: does not use Do You Feel Safe in your Home?: Yes Lack of Transportation: YES Lack of Food: Sometimes True Current Housing: I Have Housing Concerned About Future Housing: No Difficulty Paying Gas/Electric Bills: No Difficulty Paying for Meds: YES Currently Unemployed: No Education: High School Diploma/GED Difficulty w/ Childcare or Family Care: No Living arrangements: alone Additional living arrangements comments: He is single and has 3 children. 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 Spiritual care concerns: No Agree to blood products: Yes Exam Narrative: GENERAL: Ill- appearing, obsese, non-toxic, in mild distress d/t pain. HEAD: Normocephalic, atraumatic. NECK: Supple. No adenopathy, no masses. RESPIRATORY: Airway patent, respirations nonlabored. Clear to auscultation bilaterally, no rales, rhonchi, wheezing. CARDIOVASCULAR: Regular rate and rhythm without murmurs, rubs, or gallops. Peripheral pulses 2+ and equal bilaterally. +CVA tenderness R side ABDOMINAL: Soft, nontender, nondistended, no hepatosplenomegaly. Normoactive BS. MUSCULOSKELETAL: Moves all extremities. Strength/ROM intact without gross deformities. SKIN: Warm, dry, normal color. No rashes. NEURO: A&O X3. Speech clear. Cranial nerves II-XII grossly intact. No ataxic movements. PSYCHIATRIC: Appropriate mood and affect. Normal interaction. Course Vital Signs Vital signs: Vital Signs Temperature 36.6 C 07/12/24 10:35 Pulse Rate 71 07/12/24 10:35 Respiratory Rate 18 07/12/24 10:35 Blood Pressure 171/74 H 07/12/24 10:35 Pulse Oximetry 99 07/12/24 10:35 Oxygen Delivery Room Air 07/12/24 10:35 Temperature 36.6 C 07/12/24 10:35 Pulse Rate 67 07/12/24 16:03 Respiratory Rate 17 07/12/24 16:03 Blood Pressure 136/88 07/12/24 16:03 Pulse Oximetry 95 07/12/24 16:03 Oxygen Delivery Room Air 07/12/24 10:35 Medical Decision Making [facility] Narrative Medical decision making narrative: Patient is a 53-year-old male who presents to the ER with right flank pain that started abruptly this morning. He has a history of CHF, diabetes, PD dialysis and aortic valve replacement. Patient reports he has never had a kidney stone before. He has not noticed any blood in his urine. Patient endorses pain that radiates towards his abdomen. He reports he is on PD dialysis due to kidney failure from diabetes. Patient has no complaints of chest pain, abdominal pain, or urinary symptoms. He endorses nausea but denies vomiting. Labs Ordered: None necessary Imaging Ordered: CT abdomen/pelvis indicates: Mild fullness of the right renal collecting system and right ureter, possibly due to recently passed stone. No stones seen currently. Ascites is probably related to peritoneal dialysis. Stable appearing umbilical hernia with fat and fluid. Cholelithiasis. Diagnosis: recently passed kidney stone Plan: Results explained to patient. He reports he is still experiencing right flank pain. Will give patient a [place] and then plan to discharge him. Patient should follow-up with his primary care provider and Urology. He verbalizes understanding and is in agreement with plan for discharge. Differential Diagnosis Differential Diagnosis: pyelonephritis, kidney stone, urinary tract infection, R back muscle strain Vital Signs Vital Signs: Vital Signs Temperature 36.6 C 07/12/24 10:35 Pulse Rate 71 07/12/24 10:35 Respiratory Rate 18 07/12/24 10:35 Blood Pressure 171/74 H 07/12/24 10:35 Pulse Oximetry 99 07/12/24 10:35 Oxygen Delivery Room Air 07/12/24 10:35 Temperature 36.6 C 07/12/24 10:35 Pulse Rate 67 07/12/24 16:03 Respiratory Rate 17 07/12/24 16:03 Blood Pressure 136/88 07/12/24 16:03 Pulse Oximetry 95 07/12/24 16:03 Oxygen Delivery Room Air 07/12/24 10:35 Lab Data Labs: Lab Results 07/12/24 Range/Units 13:57 Urine Color Yellow (Yellow) Urine Appearance Cloudy H (Clear) Urine pH 5.0 (5.0-9.0) Ur Specific [place] 1.023 (1.001-1.035) Urine Protein 3+ H (Negative) mg/dL Urine Glucose (UA) 3+ H (Negative) mg/dL Urine Ketones Negative (Negative) mg/dL Ur Blood (Man) 2+ H (Negative) Urine Nitrate Negative (Negative) Urine Bilirubin Negative (Negative) Urine Urobilinogen 0.2 (<2.0) mg/dL Leukocyte Esterase Rfl Trace H (Negative) BENJAMIN/UL Urine RBC 21-50 H (0-2) /hpf Urine WBC 6-10 H (0-3) /hpf Ur Squamous Epith Cells None seen (Few) /hpf Urine Bacteria None seen /hpf Urine Casts 3-5 Discharge Plan Discharge Clinical Impression: Kidney stone, Urinary tract infection Patient Disposition: Home, Self-Care Condition: Stable Instructions: Antibiotic Form, Kidney Stones (ED), Urinary Tract Infection in Men (ED), Flank Pain (ED) Additional Instructions: Please take all medications as prescribed. Follow-up with your primary care provider as soon as possible. Return to the ER with any worsening symptoms. You can also follow-up with Urology as needed. Prescriptions: New cephalexin 500 mg capsule 500 mg PO Q12H Qty: 14 0RF No Action calcitriol 0.25 mcg Capsule 0.25 mcg PO QAM ergocalciferol (vitamin D2) [Vitamin D2] 50,000 unit Capsule 50,000 unit PO WEEKLY Rx Instructions: on mondays at 0900 nitroglycerin 0.4 mg Tablet, Sublingual 0.4 mg SUBLINGUAL Q5-15M PRN (Reason: Chest Pain) insulin lispro [Humalog U-100 Insulin] 100 unit/mL solution 100 unit continuous subcutaneous infusion DAILY MDD 100 Qty: 100 1RF (DME) Omnipod 5 G6 Pods (Gen 5) Cartridge SUBCUT Qty: 45 2RF Rx Instructions: Change every 48 hours insulin glargine [Lantus Solostar U-100 Insulin] 100 unit/mL (3 mL) insulin pen 30 unit subcut DAILY PRN (Reason: insulin pump malfunction) Qty: 15 1RF Humulin N NPH Insulin KwikPen 100 unit/mL (3 mL) insulin pen 10 unit subcut DAILY PRN (Reason: if insulin pump malfunction; before dialysis) Qty: 15 1RF levothyroxine 25 mcg tablet 25 mcg PO DAILY Qty: 90 1RF ezetimibe [Zetia] 10 mg Tablet 10 mg PO DAILY cetirizine [All Day Allergy (cetirizine)] 10 mg Tablet 10 mg PO DAILY atorvastatin 80 mg tablet 80 mg PO DAILY albuterol sulfate [ProAir HFA] 90 mcg/actuation HFA aerosol inhaler 1 inh inhalation QID PRN (Reason: shortness of breath or wheezing) Qty: 8.5 0RF gemfibrozil 600 mg tablet 600 mg PO Q12H febuxostat 40 mg tablet 40 mg PO QPM Linzess 72 mcg capsule 72 mcg PO DAILY PRN (Reason: Diarrhea) warfarin 3 mg tablet 3 mg PO DAILY Qty: 30 0RF Rx Instructions: Tuesdays takes 1 1/2 tab meloxicam 7.5 mg tablet 7.5 mg PO DAILY omeprazole 20 mg capsule,delayed release(DR/EC) 20 mg PO DAILY metoprolol succinate 50 mg tablet extended release 24 hr 25 mg PO HS potassium chloride 20 mEq tablet extended release 20 meq PO DAILY PRN (Reason: Cramps) torsemide 100 mg tablet 100 mg PO DAILY icosapent ethyl [Vascepa] 1 gram capsule 1 g PO Q12H moxifloxacin 0.5 % drops 1 drp LEFT EYE QID Gvoke HypoPen 2-Pack 1 mg/0.2 mL auto-injector See Rx Instructions .ROUTE .COMPLEX Qty: 0.4 2RF Dose Instruction: INJECT 1 MG(0.2 ML) UNDER THE SKIN ONCE A SINGLE DOSE, MAY REPEAT ONCE AFTER 15 MINUTES IF NO RESPONSE Rx Instructions: INJECT 1 MG(0.2 ML) UNDER THE SKIN ONCE A SINGLE DOSE, MAY REPEAT ONCE AFTER 15 MINUTES IF NO RESPONSE (DME) pen needle, diabetic [BD Lucrecia 2nd Gen Pen Needle] 32 gauge x 5/32 needle See Rx Instructions .ROUTE .COMPLEX Qty: 100 0RF Dose Instruction: TO ADMINISTER INSULIN DIRECTED Rx Instructions: TO ADMINISTER INSULIN DIRECTED Follow-up/Referrals: Rosa Gallagher MD [Physician] - (urology) Matthew,MD Aditya [Primary Care Provider] - Time of Disposition: 14:32
[2024-07-12] MEDS: SODIUM CHLORIDE 0.9% IV 500 ML IV CONT (11:31)
[2024-07-12] MEDS: MORPHINE SULFATE (*CRX) 4 MG/ML INJ IV PUSH (11:32)
[2024-07-12] MEDS: ONDANSETRON INJ 4 MG/2 ML VIAL IV PUSH (11:32)
[2024-07-12] MEDS: HYDROcodone/acetaminophen (*CRX) 5-325 MG TABLET 1 TAB PO ×2 (13:42→16:18)
[2024-07-12 14:09] LABS: Add Urine Microscopic? YES; Appearance Urine Cloudy (Clear); Bacteria Urine None Seen /hpf; Bilirubin Urine Negative (Negative); Blood Urine 2+ (Negative); Color Urine Yellow (Yellow); Glucose Urine UA 3+ mg/dL (Negative); Ketones Urine Negative (Negative); Leukocyte Esterase Ur Trace LEU/UL (Negative); Nitrate Urine Negative (Negative); Protein Urine 3+ mg/dL (Negative); RBC Urine 21-50 /hpf (0-2); Specific Grav Ur 1.023 (1.001-1.035); Squamous Epithelial Cell Urine None Seen /hpf (Few); Urobilinogen Urine 0.2 mg/dL (<2.0)
[2024-07-12] MEDS: CEPHALEXIN 500 MG CAPSULE PO (15:34)
== END 2024-07-12 16:30 | disposition home or self-care (01) ==
PROVIDERS: Emergency Provider Registered Nurse; PCP Family Medicine
DX: N20.0 Calculus of kidney (principal); N39.0 Urinary tract infection, site not specified; E10.22 Type 1 diabetes mellitus with diabetic chronic kidney disease; I13.2 Hypertensive heart and chronic kidney disease with heart failure and with stage 5 chronic kidney disease, or end stage renal disease; N18.6 End stage renal disease; I50.9 Heart failure, unspecified; Z99.2 Dependence on renal dialysis; E10.42 Type 1 diabetes mellitus with diabetic polyneuropathy; E10.319 Type 1 diabetes mellitus with unspecified diabetic retinopathy without macular edema; D63.1 Anemia in chronic kidney disease; I25.10 Atherosclerotic heart disease of native coronary artery without angina pectoris; I48.0 Paroxysmal atrial fibrillation; I82.531 Chronic embolism and thrombosis of right popliteal vein; N25.0 Renal osteodystrophy; N25.81 Secondary hyperparathyroidism of renal origin; G47.33 Obstructive sleep apnea (adult) (pediatric); K21.9 Gastro-esophageal reflux disease without esophagitis; Z95.2 Presence of prosthetic heart valve; Z95.5 Presence of coronary angioplasty implant and graft; Z95.1 Presence of aortocoronary bypass graft; Z96.1 Presence of intraocular lens; Z98.49 Cataract extraction status, unspecified eye; Z79.4 Long term (current) use of insulin; Z79.899 Other long term (current) drug therapy; Z79.01 Long term (current) use of anticoagulants; K80.20 Calculus of gallbladder without cholecystitis without obstruction; K42.9 Umbilical hernia without obstruction or gangrene; R18.8 Other ascites
CPT/HCPCS: 74176; 81001; 87086; 96361; 96374; 96375; 99284; A9270; J2270; J2405; J7040

== ENCOUNTER 2024-07-13 22:53 | Emergency (ER) | payer MEDICARE, MEDICAID, SELFPAY ==
[2024-07-13 23:00] VITALS: BP 195/119; PULSE 80; RESP 18; TEMP 36.4; O2SAT 100
[2024-07-13 23:11] VITALS: BP 185/90
[2024-07-13 23:13] LABS: Basophils Percent Auto 0.4 % (0.2-1.2); Eosinophils Absolute Auto 0.4 K/mm3 (0-0.3); Eosinophils Percent Auto 5.2 % (0-4.4); Hematocrit 33.9 % (42.0-52.0); Hemoglobin 11.5 g/dL (14.0-18.0); Immature Granulocyte Absolute 0.01 K/mm3 (0.00-0.031); Immature Granulocyte Percent A 0.1 % (0-0.5); Lymphocytes Absolute Auto 1.57 K/mm3 (0.9-3.2); Lymphocytes Percent Auto 22.3 % (18.3-44.2); Mean Corpuscular HGB Conc 33.9 g/dl (32-36); Mean Corpuscular Hemoglobin 31.3 pg (26-34); Mean Corpuscular Volume 92.1 fl (80-100); Mean Platelet Volume 10.2 fl (7.4-10.4); Monocytes Absolute Auto 0.9 K/mm3 (0.1-0.6); Monocytes Percent Auto 12.6 % (2.6-8.5); Neutrophils Absolute Auto 4.2 K/mm3 (1.3-6.7); Neutrophils Percent Auto 59.4 % (45.5-73.1); Platelet Count Result 193 k/mm3 (150-375); Red Blood Count 3.68 M/mm3 (4.6-6.20); Red Cell Distribution Width 14.4 % (11.5-14.5); White Blood Count 7.1 K/mm3 (4.5-10.0)
[2024-07-13 23:27] LABS: Alanine Aminotransferase 23 U/L (6-50); Albumin Level 4.4 g/dL (3.5-5.1); Alkaline Phosphatase 87 U/L (38-126); Anion Gap 12 mmol/L (4-12); Aspartate Amino Transferase 30 U/L (17-59); Bilirubin,Total 0.7 mg/dL (0.2-1.3); Blood Urea Nitrogen 68 mg/dL (9-20); Calcium 9.6 mg/dL (8.4-10.2); Carbon Dioxide 29 mmol/L (22-30); Chloride 96 mmol/L (98-107); Estimated CRCL calculation 12 ml/min; Estimated Glomerular Filt Rate 7; Glucose 86 mg/dL (65-110); Lipase 41 U/L (23-300); Potassium 3.8 mmol/L (3.4-5.0); Sodium 137 mmol/L (137-145)
[2024-07-13] MEDS: HYDROmorphone HCL INJ (*CRX) 1 MG/ML SYR IV PUSH (23:29)
[2024-07-13] MEDS: LACTATED RINGERS 1,000 ML 999 ML IV CONT (23:29)
[2024-07-13] MEDS: ONDANSETRON INJ 4 MG/2 ML VIAL IV PUSH (23:29)
[2024-07-13 23:34] VITALS: O2SAT 95
[2024-07-13 23:56] VITALS: O2SAT 96
[2024-07-14] VITALS (11 sets, daily range): BP systolic 132–157; BP diastolic 65–97; PULSE 67; RESP 16; O2SAT 95–100
--- NOTE | 2024-07-14 00:32 | ED.MALEGU ---
HPI - Male Genitourinary General Chief complaint: Urogenital-Male Stated complaint: kidney stone Time Seen by Provider: 07/13/24 23:03 History of Present Illness HPI Narrative: 53-year-old male with a past medical history significant for insulin-dependent diabetes, congestive heart failure, peritoneal dialysis, recently diagnosed kidney stone that had passed. Patient presents to the ER for repeat evaluation. He was seen yesterday by different provider for right-sided back and flank pain and was diagnosed with a kidney stone that had passed after getting CT scans and laboratory assessment. Patient states he felt improved here in the hospital but does not sent home with any kind of pain medications and had recurrence of his back and flank pain when he went home. Denies any fever, chills, nausea or vomiting. Was otherwise is normal state of health and has no new complaints. Pain is localized to the back and right flank but does not radiate into the right groin or into the abdomen. No abdominal distension, diarrhea constipation. He does still make urine and not noticed any hematuria or dysuria. Complaint with his peritoneal dialysis catheter daily as not note any abdominal pain, swelling or any other new symptoms. No trauma or injuries. Previous to the last few days was otherwise normal state of health. Related Data Home Medications Medication Instructions Recorded Confirmed calcitriol 0.25 mcg capsule 0.25 mcg PO QAM 06/04/19 06/06/24 ergocalciferol (vitamin D2) 1,250 50,000 unit PO WEEKLY 06/04/19 06/06/24 mcg (50,000 unit) capsule (Vitamin D2) nitroglycerin 0.4 mg sublingual 0.4 mg sublingual Q5-15M PRN Chest 06/04/19 06/06/24 tablet Pain ezetimibe 10 mg tablet (Zetia) 10 mg PO DAILY 09/09/19 06/06/24 cetirizine 10 mg tablet (All Day 10 mg PO DAILY 12/26/19 06/06/24 Allergy (cetirizine)) atorvastatin 80 mg tablet 80 mg PO DAILY 11/26/20 06/06/24 metoprolol succinate 50 mg 25 mg PO HS 05/20/23 06/06/24 tablet,extended release 24 hr potassium chloride 20 mEq 20 meq PO DAILY PRN Cramps 05/20/23 06/06/24 tablet,extended release febuxostat 40 mg tablet 40 mg PO QPM 12/05/23 10/17/24 gemfibrozil 600 mg tablet 600 mg PO Q12H 07/25/23 06/06/24 linaclotide 72 mcg capsule 72 mcg PO DAILY PRN Diarrhea 07/25/23 06/06/24 (Linzess) icosapent ethyl 1 gram capsule 1 g PO Q12H 02/16/24 06/06/24 (Vascepa) torsemide 100 mg tablet 100 mg PO DAILY 02/16/24 06/06/24 moxifloxacin 0.5 % eye drops 1 drp LEFT EYE QID 05/27/24 06/06/24 meloxicam 7.5 mg tablet 7.5 mg PO DAILY 06/06/24 06/06/24 omeprazole 20 mg capsule,delayed 20 mg PO DAILY 06/06/24 06/06/24 release Allergies Allergy/AdvReac Type Severity Reaction Status Date / Time allopurinol Allergy Severe Other Verified 07/13/24 23:05 iodine Allergy Severe Rash Verified 07/13/24 23:05 iohexol Allergy Severe Difficulty Verified 07/13/24 23:05 [From CONTRAST - CT, XRAY] Breathing ticagrelor Allergy Intermediate Rash Verified 07/13/24 23:05 Review of Systems Review of Systems: As reviewed above in [facility] Past Medical History Medical History Anemia in chronic kidney disease Anxiety Arthritis Chronic anticoagulation Congestive heart failure Echocardiogram May 2017 EF of 50% with hypokinetic apical, inferior and basal inferior lateral segment, mild enlargement of left atrium. Coronary artery disease History of several stents including complex procedure at [facility]/ stenting of a heavily calcified CX on OM using shockwave treatment. Deep venous thrombosis Chronic right popliteal DVT. Diabetic peripheral neuropathy Diabetic retinopathy End-stage renal disease on peritoneal dialysis Essential hypertension Gastroesophageal reflux disease Gout Hyperlipidemia Insulin dependent diabetes mellitus Obstructive sleep apnea With inconsistent CPAP use. Paroxysmal atrial fibrillation Renal osteodystrophy Right hand dominant Secondary hyperparathyroidism of renal origin Seizure X1 with etiology unknown Type 1 diabetes mellitus Onset around age 13. Surgical History Surgical History History of anterior cruciate ligament surgery (2000) Left knee History of appendectomy (2006) History of arthroscopy of left knee History of bilateral carpal tunnel release Right 05/03/2018. Left 06/02/2018. History of cardiac catheterization 01/21/2021 catheterization at [facility], Dr. Hoover done: Little change from prior catheterization. Patent stents in the RCA and PDA. Previously jailed posterolateral is occluded and development of a 50% stenosis of a branch of om 1. Normal LV function. :August 2019 demonstrated patent stents with 40% stenosis of 1 vessel with no stents or angioplasty performed per patient report. :November 2018 at [facility] - stent x3. :March 2017 demonstrating mild diffuse coronary disease 80% lesion small sub branch of obtuse marginal 1 and 90% stenosis distal RCA into the origin of the PDA with PTCA and stent to the RPDA/distal RCA performed by Dr. Petit. History of cataract extraction With lens implant History of coronary angioplasty with insertion of stent Drug-eluting stents for high-grade OM 99% occlusion 05/2022. History of hernia repair History of open reduction and internal fixation (ORIF) procedure (1982) Left lower extremity fracture. And the right hip pinning when he was in the 8th grade Peritoneal dialysis catheter in place S/P triple vessel bypass Sep 2023; [facility] Family History Family History Father , in his late 60s Acute myocardial infarction Premature coronary artery disease; <65yo CHF (congestive heart failure) Dementia Hypertension S/P triple vessel bypass 1980s Mother Lung cancer Hypertension Daughter Celiac disease Social History Social History Social History: Surrogate medical decision maker: Hodan Daigle (daughter) or Lorne Daigle (brother). Code status: Full code. Smoking status: Never smoker Second hand tobacco smoke exposure: No Alcohol intake: never Substance use: never Substance use type: does not use Do You Feel Safe in your Home?: Yes Lack of Transportation: YES Lack of Food: Sometimes True Current Housing: I Have Housing Concerned About Future Housing: No Difficulty Paying Gas/Electric Bills: No Difficulty Paying for Meds: YES Currently Unemployed: No Education: High School Diploma/GED Difficulty w/ Childcare or Family Care: No Living arrangements: alone Additional living arrangements comments: He is single and has 3 children. 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 Spiritual care concerns: No Agree to blood products: Yes Exam Narrative: GENERAL: [Well-appearing, well-nourished, and in no acute distress.] HEAD: [Normocephalic, atraumatic.] EYES: [PERRLA and EOMI.] ENT: Nares clear, no rhinorrhea or epistaxis. Mucous membranes moist. NECK: Supple. CHEST: [Clear to auscultation. No respiratory distress.] HEART: [Regular rate and rhythm]. No murmur heard. [Normal peripheral pulses.] ABDOMEN: protuberant abdomen but soft and nontender to palpation. Left-sided peritoneal dialysis catheter in place without any overlying skin changes, erythema or warmth. Right-sided CVA tenderness reproducible palpation, no overlying skin changes. No right lower quadrant right upper quadrant pain, negative Jade sign. EXTREMITIES: Normal range of motion. [No edema.] SKIN: Warm, dry, no rash. NEURO: [No focal deficits]. Alert and oriented [x3.] PSYCH: [Normal mood and affect.] Course Vital Signs Vital signs: Vital Signs Temperature 36.4 C 07/13/24 23:00 Pulse Rate 80 07/13/24 23:00 Respiratory Rate 18 07/13/24 23:00 Blood Pressure 195/119 H 07/13/24 23:00 Pulse Oximetry 100 07/13/24 23:00 Oxygen Delivery Room Air 07/13/24 23:00 Temperature 36.4 C 07/13/24 23:00 Pulse Rate 67 07/14/24 00:15 Respiratory Rate 16 07/14/24 00:15 Blood Pressure 157/77 H 07/14/24 00:15 Pulse Oximetry 97 07/14/24 00:15 Oxygen Delivery Nasal Cannula 07/13/24 23:56 Oxygen Flow Rate 2 07/13/24 23:56 MDM - Male Genitourinary MDM Narrative Medical decision making narrative: 53-year-old male with extensive history including diabetes, congestive heart failure, peritoneal dialysis. Presents today for repeat evaluation of persistent right-sided flank pain. Was seen yesterday by a different provider and diagnosed with a kidney stone that had passed. He had CT scans done at that time as well as laboratory studies. CT scan showed some fullness in the right kidney and collecting system consistent with recently passed stone. Patient had some hematuria on the urinalysis. He felt improved with her pain medications here in the ED but was not discharged with repeat medications according to himself. He recurrence of the same pain he had yesterday. Denies any fever, chills. States he has had normal urinary output but is also on peritoneal dialysis. No complications with his PD and he has been using at correctly. No abdominal pain or fullness. No fevers or chills. No signs of infection around his PD catheter. He otherwise appears well, is afebrile, vital signs are reassuring without any tachycardia, respiratory concerns, blood pressure 157/77. 100% saturation on room air. Patient had repeat laboratory studies drawn here including a CBC, CMP lipase in his provide analgesia with Dilaudid, Zofran and fluid bolus. Likely patient has persistent pain from the recently passed kidney stone of his right-sided but does not exclude any other kind of process such as a superimposed infection, pyelonephritis, urinary tract infection or any intra-abdominal process but less likely given his largely unremarkable scan yesterday and normal vitals and labs. Repeat CBC shows no leukocytosis or Anemia worse than his baseline. Normal platelets. Electrolyte profile within normal limits, BUN and creatinine are at his baseline end-stage renal disease and he is already on peritoneal dialysis. Glucose within normal range, Negative CMP without any LFT elevations. Normal lipase. Urinalysis is pending. patient was re-evaluated had complete symptomatic improvement after the medications here in the emergency department. Barring any kind of infection is urine I believe patient will be appropriate for discharge home with pain medications for his likely diagnosis being recently passed kidney stone. Patient was agreeable to this plan of care. Urinalysis shows no bacteria, similar to yesterday's exam, will send for urine culture but no indications for active treatment with antibiotics at this time. Patient had no return of his pain while here in the emergency department. [place] appropriate to send the patient home with a dose of as needed oxycodone for breakthrough pain as well as few day course of Toradol. He is already end-stage renal function and on dialysis and does not have any contraindications to this medication given this. Patient stable for discharge home with outpatient follow-up. Medical Records Attestation: I reviewed the patient's medical records. Lab Data Attestation: I reviewed the patient's lab results. 07/13/24 23:06 07/13/24 23:06 Labs: Lab Results 07/13/24 07/14/24 Range/Units 23:06 00:33 WBC 7.1 (4.5-10.0) K/mm3 RBC 3.68 L (4.6-6.20) M/mm3 Hgb 11.5 L (14.0-18.0) g/dL Hct 33.9 L (42.0-52.0) % MCV 92.1 (80-100) fl MCH 31.3 (26-34) pg MCHC 33.9 (32-36) g/dl RDW 14.4 (11.5-14.5) % Plt Count 193 (150-375) k/mm3 MPV 10.2 (7.4-10.4) fl Immature Gran % (Auto) 0.1 (0-0.5) % Neut % (Auto) 59.4 (45.5-73.1) % Lymph % (Auto) 22.3 (18.3-44.2) % [place] % (Auto) 12.6 H (2.6-8.5) % Eos % (Auto) 5.2 H (0-4.4) % Baso % (Auto) 0.4 (0.2-1.2) % Lymph # (Auto) 1.57 (0.9-3.2) K/mm3 [place] # (Auto) 0.9 H (0.1-0.6) K/mm3 Eos # (Auto) 0.4 H (0-0.3) K/mm3 Baso # (Auto) 0.0 (0.0-0.1) K/mm3 Abs Immat Gran (auto) 0.01 (0.00-0.031) K/mm3 Absolute Neuts (auto) 4.2 (1.3-6.7) K/mm3 Absolute Nucleated RBC 0.000 (0.0-0.012) K/mm3 Nucleated RBC % 0.0 (0.0-0.2) % Sodium 137 (137-145) mmol/L Potassium 3.8 (3.4-5.0) mmol/L Chloride 96 L (98-107) mmol/L Carbon Dioxide 29 (22-30) mmol/L Anion Gap 12 (4-12) mmol/L BUN 68 H (9-20) mg/dL Creatinine 8.10 H (0.7-1.3) mg/dL Estim Creat Clear Calc 12 ml/min Estimated GFR 7 L (59 - ) Glucose 86 (65-110) mg/dL Calcium 9.6 (8.4-10.2) mg/dL Total Bilirubin 0.7 (0.2-1.3) mg/dL AST 30 (17-59) U/L ALT 23 (6-50) U/L Alkaline Phosphatase 87 (38-126) U/L Total Protein 8.0 (6.3-8.2) g/dL Albumin 4.4 (3.5-5.1) g/dL Lipase 41 (23-300) U/L Urine Color Yellow (Yellow) Urine Appearance Cloudy H (Clear) Urine pH 5.0 (5.0-9.0) Ur Specific [place] 1.023 (1.001-1.035) Urine Protein 3+ H (Negative) mg/dL Urine Glucose (UA) 2+ H (Negative) mg/dL Urine Ketones Negative (Negative) mg/dL Ur Blood (Man) 2+ H (Negative) Urine Nitrate Negative (Negative) Urine Bilirubin Negative (Negative) Urine Urobilinogen 0.2 (<2.0) mg/dL Add Ur Microanalysis Reviewed Leukocyte Esterase Rfl 1+ H (Negative) BEN[place]AMIN/UL Urine RBC 6-10 H (0-2) /hpf Urine WBC 11-20 H (0-3) /hpf Urine WBC Clumps Present H (None) /HPF Ur Squamous Epith Cells Occasional (Few) /hpf Urine Bacteria None seen /hpf Urine Casts 6-10 Urine Mucus Present /lpf Discharge Plan Discharge Clinical Impression: Right flank pain, Kidney stone Patient Disposition: Home, Self-Care Condition: Stable Instructions: Antibiotic Form, Kidney Stones (ED), Flank Pain (ED) Additional Instructions: your laboratory studies and imaging yesterday were all reassuring. We have sent you home with medications for continued pain relief at home. Follow-up with your primary care provider on outpatient basis or you can return with any new or worsening concerns at any time. Prescriptions: New ketorolac 10 mg tablet 5 mg PO Q8H PRN (Reason: pain) 3 Days Qty: 6 0RF Rx Instructions: maximum total duration of 5 days from all oral, intranasal, or parenteral formulations oxycodone 5 mg capsule 5 mg PO Q8H PRN (Reason: pain) Qty: 10 0RF No Action calcitriol 0.25 mcg Capsule 0.25 mcg PO QAM ergocalciferol (vitamin D2) [Vitamin D2] 50,000 unit Capsule 50,000 unit PO WEEKLY Rx Instructions: on mondays at 0900 nitroglycerin 0.4 mg Tablet, Sublingual 0.4 mg SUBLINGUAL Q5-15M PRN (Reason: Chest Pain) insulin lispro [Humalog U-100 Insulin] 100 unit/mL solution 100 unit continuous subcutaneous infusion DAILY MDD 100 Qty: 100 1RF (DME) Omnipod 5 G6 Pods (Gen 5) Cartridge SUBCUT Qty: 45 2RF Rx Instructions: Change every 48 hours insulin glargine [Lantus Solostar U-100 Insulin] 100 unit/mL (3 mL) insulin pen 30 unit subcut DAILY PRN (Reason: insulin pump malfunction) Qty: 15 1RF Humulin N NPH Insulin KwikPen 100 unit/mL (3 mL) insulin pen 10 unit subcut DAILY PRN (Reason: if insulin pump malfunction; before dialysis) Qty: 15 1RF levothyroxine 25 mcg tablet 25 mcg PO DAILY Qty: 90 1RF ezetimibe [Zetia] 10 mg Tablet 10 mg PO DAILY cetirizine [All Day Allergy (cetirizine)] 10 mg Tablet 10 mg PO DAILY atorvastatin 80 mg tablet 80 mg PO DAILY albuterol sulfate [ProAir HFA] 90 mcg/actuation HFA aerosol inhaler 1 inh inhalation QID PRN (Reason: shortness of breath or wheezing) Qty: 8.5 0RF gemfibrozil 600 mg tablet 600 mg PO Q12H febuxostat 40 mg tablet 40 mg PO QPM Linzess 72 mcg capsule 72 mcg PO DAILY PRN (Reason: Diarrhea) warfarin 3 mg tablet 3 mg PO DAILY Qty: 30 0RF Rx Instructions: Tuesdays takes 1 1/2 tab meloxicam 7.5 mg tablet 7.5 mg PO DAILY omeprazole 20 mg capsule,delayed release(DR/EC) 20 mg PO DAILY cephalexin 500 mg capsule 500 mg PO Q12H Qty: 14 0RF metoprolol succinate 50 mg tablet extended release 24 hr 25 mg PO HS potassium chloride 20 mEq tablet extended release 20 meq PO DAILY PRN (Reason: Cramps) torsemide 100 mg tablet 100 mg PO DAILY icosapent ethyl [Vascepa] 1 gram capsule 1 g PO Q12H moxifloxacin 0.5 % drops 1 drp LEFT EYE QID Gvoke HypoPen 2-Pack 1 mg/0.2 mL auto-injector See Rx Instructions .ROUTE .COMPLEX Qty: 0.4 2RF Dose Instruction: INJECT 1 MG(0.2 ML) UNDER THE SKIN ONCE A SINGLE DOSE, MAY REPEAT ONCE AFTER 15 MINUTES IF NO RESPONSE Rx Instructions: INJECT 1 MG(0.2 ML) UNDER THE SKIN ONCE A SINGLE DOSE, MAY REPEAT ONCE AFTER 15 MINUTES IF NO RESPONSE (DME) pen needle, diabetic [BD Lucrecia 2nd Gen Pen Needle] 32 gauge x 5/32 needle See Rx Instructions .ROUTE .COMPLEX Qty: 100 0RF Dose Instruction: TO ADMINISTER INSULIN DIRECTED Rx Instructions: TO ADMINISTER INSULIN DIRECTED Follow-up/Referrals: Matthew,MD Aditya [Primary Care Provider] -
[2024-07-14 00:52] LABS: Add Urine Microscopic? YES; Appearance Urine Cloudy (Clear); Bacteria Urine None Seen /hpf; Bilirubin Urine Negative (Negative); Blood Urine 2+ (Negative); Color Urine Yellow (Yellow); Glucose Urine UA 2+ mg/dL (Negative); Ketones Urine Negative (Negative); Leukocyte Esterase Ur 1+ LEU/UL (Negative); Mucus Urine Present /lpf; Need Manual Microscopic Reviewed; Nitrate Urine Negative (Negative); Protein Urine 3+ mg/dL (Negative); Specific Grav Ur 1.023 (1.001-1.035); Squamous Epithelial Cell Urine Occasional /hpf (Few); Urobilinogen Urine 0.2 mg/dL (<2.0); WBC Clumps Urine Present /HPF
== END 2024-07-14 02:18 | disposition home or self-care (01) ==
PROVIDERS: Emergency Provider Student in an Organized Health Care Education/Training Program; PCP Family Medicine
DX: R10.9 Unspecified abdominal pain (principal); N20.0 Calculus of kidney; E10.22 Type 1 diabetes mellitus with diabetic chronic kidney disease; I13.2 Hypertensive heart and chronic kidney disease with heart failure and with stage 5 chronic kidney disease, or end stage renal disease; N18.6 End stage renal disease; I50.9 Heart failure, unspecified; Z99.2 Dependence on renal dialysis; E10.42 Type 1 diabetes mellitus with diabetic polyneuropathy; E10.319 Type 1 diabetes mellitus with unspecified diabetic retinopathy without macular edema; D63.1 Anemia in chronic kidney disease; I25.10 Atherosclerotic heart disease of native coronary artery without angina pectoris; I48.0 Paroxysmal atrial fibrillation; I82.531 Chronic embolism and thrombosis of right popliteal vein; N25.0 Renal osteodystrophy; N25.81 Secondary hyperparathyroidism of renal origin; G47.33 Obstructive sleep apnea (adult) (pediatric); K21.9 Gastro-esophageal reflux disease without esophagitis; Z95.2 Presence of prosthetic heart valve; Z95.5 Presence of coronary angioplasty implant and graft; Z95.1 Presence of aortocoronary bypass graft; Z96.1 Presence of intraocular lens; Z98.49 Cataract extraction status, unspecified eye; Z79.4 Long term (current) use of insulin; Z79.899 Other long term (current) drug therapy; Z79.01 Long term (current) use of anticoagulants
CPT/HCPCS: 36415; 80053; 81001; 83690; 85025; 87086; 96361; 96374; 96375; 99284; J1171; J2405; J7120

== ENCOUNTER 2024-07-16 13:12 | Emergency (ER) | payer MEDICARE, MEDICAID, SELFPAY ==
--- NOTE | ~2024-07-16 | CT_ITS ---
CT abdomen pelvis wo con Ordering provider: Kip Beard MD History: 53 years Male with . right flank pain, RLQ pain . Comparison: July 12, 2024 Technique: CT abdomen and pelvis without IV and without oral contrast. Automated exposure control and iterative reconstruction technique were employed. The dose-length product was 1484.64 mGy-cm. Findings: VISUALIZED LOWER CHEST: Left moderate pleural effusion with adjacent atelectasis. Atelectatic changes in the lingula. Postoperative changes in the mediastinum. Cardiomegaly. UPPER ABDOMINAL ORGANS: Liver: Normal. Fluid seen around the liver. Gallbladder: Cholelithiasis. Spleen: Normal. Stomach/duodenum: Normal. Pancreas: Atrophic. Adrenals: Normal. Kidneys: Right hydronephrotic changes. Fat stranding around the right renal pelvis. No definite stone s. PELVIC ORGANS: The bladder shows thickened wall suggestive of cystitis. Clinical evaluation and if wa rranted cystoscopy is advised. Catheter is seen in the left side of the pelvis. BOWEL AND MESENTERY: Colon: No evidence of diverticulitis. Fecal material is loaded in the right side of the colon suggest bianca of constipation. Appendix is not demonstrated. Small Bowel: Normal. No obstruction. Peritoneum/mesentery: No free air. Free fluid is seen in the left side of the pelvis and in the right and left paracolic gutter.. No mesenteric lymphadenopathy. RETROPERITONEUM: Mild atheromatous disease of the abdominal aorta. No retroperitoneal lymphadenopat hy. MUSCULOSKELETAL: Superficial soft tissues: Inflammatory changes around the umbilicus are noted with fat stranding in t he subcutaneous tissues. Otherwise, The superficial soft tissues are normal. Bones: Age appropriate degenerative changes of the spine. IMPRESSION: 1. Left pleural effusion with adjacent atelectasis. 2. Atelectatic changes in the lingula. 3. Cholelithiasis. 4. Right hydronephrotic changes with slightly dilated ureter. No stones seen. 5. Thickened wall of the urinary bladder suggestive of cystitis. Cystoscopy is advised. 6. Free fluid in the abdomen with catheter seen in the left lower quadrant. 7. Inflammatory changes around the umbilicus suggestive of cellulitis. 8. Atrophic pancreas. 9. Constipation. Reviewed, dictated and finalized at location A. R SECURITY
[2024-07-16 13:15] VITALS: BP 157/83; PULSE 73; RESP 21; TEMP 36.5; O2SAT 99
[2024-07-16 13:36] LABS: Basophils Percent Auto 0.4 % (0.2-1.2); Eosinophils Absolute Auto 0.3 K/mm3 (0-0.3); Eosinophils Percent Auto 4.8 % (0-4.4); Hematocrit 31.9 % (42.0-52.0); Hemoglobin 10.6 g/dL (14.0-18.0); Immature Granulocyte Absolute 0.02 K/mm3 (0.00-0.031); Immature Granulocyte Percent A 0.4 % (0-0.5); Lymphocytes Absolute Auto 1.12 K/mm3 (0.9-3.2); Lymphocytes Percent Auto 20.8 % (18.3-44.2); Mean Corpuscular HGB Conc 33.2 g/dl (32-36); Mean Corpuscular Hemoglobin 30.6 pg (26-34); Mean Corpuscular Volume 92.2 fl (80-100); Mean Platelet Volume 10.4 fl (7.4-10.4); Monocytes Absolute Auto 0.8 K/mm3 (0.1-0.6); Monocytes Percent Auto 15.4 % (2.6-8.5); Neutrophils Absolute Auto 3.1 K/mm3 (1.3-6.7); Neutrophils Percent Auto 58.2 % (45.5-73.1); Platelet Count Result 175 k/mm3 (150-375); Red Blood Count 3.46 M/mm3 (4.6-6.20); Red Cell Distribution Width 14.8 % (11.5-14.5); White Blood Count 5.4 K/mm3 (4.5-10.0)
[2024-07-16 13:44] LABS: Add Urine Microscopic? YES; Appearance Urine Turbid (Clear); Bilirubin Urine 1+ (Negative); Blood Urine 2+ (Negative); Color Urine Red (Yellow); Glucose Urine UA 1+ mg/dL (Negative); Ketones Urine Negative (Negative); Leukocyte Esterase Ur 2+ LEU/UL (Negative); Nitrate Urine Positive (Negative); Protein Urine 2+ mg/dL (Negative); Specific Grav Ur 1.026 (1.001-1.035); Urobilinogen Urine 0.2 mg/dL (<2.0)
[2024-07-16 13:46] LABS: Alanine Aminotransferase 22 U/L (6-50); Albumin Level 4.1 g/dL (3.5-5.1); Alkaline Phosphatase 95 U/L (38-126); Anion Gap 13 mmol/L (4-12); Aspartate Amino Transferase 27 U/L (17-59); Bilirubin,Total 0.6 mg/dL (0.2-1.3); Blood Urea Nitrogen 65 mg/dL (9-20); Calcium 8.8 mg/dL (8.4-10.2); Carbon Dioxide 28 mmol/L (22-30); Chloride 93 mmol/L (98-107); Estimated CRCL calculation 11 ml/min; Estimated Glomerular Filt Rate 6; Glucose 272 mg/dL (65-110); Lipase 44 U/L (23-300); Potassium 4.3 mmol/L (3.4-5.0); Sodium 134 mmol/L (137-145)
[2024-07-16 13:54] LABS: Bacteria Urine Unable to determine /hpf; RBC Urine >100 /hpf (0-2); Squamous Epithelial Cell Urine Unable to determine /hpf (Few); WBC Urine >100 /hpf (0-3)
--- NOTE | 2024-07-16 14:16 | ED_ITS ---
HPI - Back Pain/Injury General Chief Complaint: Back Pain/Injury <Genesis Eden APRN - Last Filed: 07/16/24 15:21> Stated Complaint: R flank pain - has known stone? <Genesis Eden APRN - Last Filed: 07/16/24 15:21> Time Seen by Provider: 07/16/24 13:45 <Genesis Eden APRN - Last Filed: 07/16/24 15:21> Focused HPI: Patient is a 53-year-old male who presents to the ER with ongoing right flank pain. He was here approximately 1 week ago with similar symptoms and was found to have a recently passed kidney stone on his CT scan. Patient reports his pain has continued and he is concerned he is passing another kidney stone. He endorses blood in his urine, painful urination, severe right flank pain. Patient has extensive medical history in is well known to many providers in our ER. He denies any recent fevers, chest pain, shortness of breath. GENERAL: Well-appearing, well-nourished, and in mild distress d/t pain. HEAD: Normocephalic, atraumatic. CHEST: Clear to auscultation. ?No respiratory distress. HEART: Regular rate and rhythm.? NEURO: ?Alert and oriented x3. Patient screened in triage and initial orders placed.? ?Additional care and disposition to be based upon?diagnostic testing and treatment. <Genesis Eden APRN - Last Filed: 07/16/24 15:21> History of Present Illness HPI Narrative: agree with HPI. Recently been passing blood in his urine with dysuria. Normal diastolic fluid in no diffuse abdominal pain. He has mild discomfort on the right side of the abdomen. Also reports right low back pain. <Kip stanley MD - Last Filed: 07/16/24 21:45> Related Data Home Medications: Home Medications Medication Instructions Recorded Confirmed calcitriol 0.25 mcg capsule 0.25 mcg PO QAM 06/04/19 06/06/24 ergocalciferol (vitamin D2) 1,250 50,000 unit PO WEEKLY 06/04/19 06/06/24 mcg (50,000 unit) capsule (Vitamin D2) nitroglycerin 0.4 mg sublingual 0.4 mg sublingual Q5-15M PRN Chest 06/04/19 06/06/24 tablet Pain ezetimibe 10 mg tablet (Zetia) 10 mg PO DAILY 09/09/19 06/06/24 cetirizine 10 mg tablet (All Day 10 mg PO DAILY 12/26/19 06/06/24 Allergy (cetirizine)) atorvastatin 80 mg tablet 80 mg PO DAILY 11/26/20 06/06/24 metoprolol succinate 50 mg 25 mg PO HS 05/20/23 06/06/24 tablet,extended release 24 hr potassium chloride 20 mEq 20 meq PO DAILY PRN Cramps 05/20/23 06/06/24 tablet,extended release febuxostat 40 mg tablet 40 mg PO QPM 07/25/23 06/06/24 gemfibrozil 600 mg tablet 600 mg PO Q12H 07/25/23 06/06/24 linaclotide 72 mcg capsule 72 mcg PO DAILY PRN Diarrhea 07/25/23 06/06/24 (Linzess) icosapent ethyl 1 gram capsule 1 g PO Q12H 02/16/24 06/06/24 (Vascepa) torsemide 100 mg tablet 100 mg PO DAILY 02/16/24 06/06/24 moxifloxacin 0.5 % eye drops 1 drp LEFT EYE QID 05/27/24 06/06/24 meloxicam 7.5 mg tablet 7.5 mg PO DAILY 06/06/24 06/06/24 omeprazole 20 mg capsule,delayed 20 mg PO DAILY 06/06/24 06/06/24 release <Genesis Eden, CANCELING MACHINE OPERATOR - Last Filed: 07/16/24 15:21> Allergies/Adverse Reactions: Allergies Allergy/AdvReac Type Severity Reaction Status Date / Time allopurinol Allergy Severe Other Verified 07/16/24 16:52 iodine Allergy Severe Rash Verified 07/16/24 16:52 iohexol Allergy Severe Difficulty Verified 07/16/24 16:52 [From CONTRAST - CT, XRAY] Breathing ticagrelor Allergy Intermediate Rash Verified 07/16/24 16:52 <Genesis Eden, CANCELING MACHINE OPERATOR - Last Filed: 07/16/24 15:21> Review of Systems Review of Systems: All systems reviewed & are unremarkable except as noted in HPI and below <Kip Beard MD - Last Filed: 07/16/24 21:45> Constitutional: Constitutional: Reports no additional constitutional compl aints <Kip Beard MD - Last Filed: 07/16/24 21:45> Cardiovascular: Cardiovascular: Reports no additional cardiovascular complaints <Kip Beard MD - Last Filed: 07/16/24 21:45> Respiratory: Respiratory: Reports no additional respiratory complaints <Kip Beard MD - Last Filed: 07/16/24 21:45> Gastrointestinal: Gastrointestinal: Reports no additional gastrointestinal complaints <Kip Beard MD - Last Filed: 07/16/24 21:45> [facility] Past Medical History Medical History: Medical History Anemia in chronic kidney disease Anxiety Arthritis Chronic anticoagulation Congestive heart failure Echocardiogram May 2017 EF of 50% with hypokinetic apical, inferior and basal inferior lateral segment, mild enlargement of left atrium. Coronary artery disease History of several stents including complex procedure at [facility]/ stenting of a heavily calcified CX on OM using shockwave treatment. Deep venous thrombosis Chronic right popliteal DVT. Diabetic peripheral neuropathy Diabetic retinopathy End-stage renal disease on peritoneal dialysis Essential hypertension Gastroesophageal reflux disease Gout Hyperlipidemia Insulin dependent diabetes mellitus Obstructive sleep apnea With inconsistent CPAP use. Paroxysmal atrial fibrillation Renal osteodystrophy Right hand dominant Secondary hyperparathyroidism of renal origin Seizure X1 with etiology unknown Type 1 diabetes mellitus Onset around age 13. <Genesis Eden APRN - Last Filed: 07/16/24 15:21> Surgical History Surgical History: Surgical History History of anterior cruciate ligament surgery (2000) Left knee History of appendectomy (2006) History of arthroscopy of left knee History of bilateral carpal tunnel release Right 05/03/2018. Left 06/02/2018. History of cardiac catheterization 01/21/2021 catheterization at [facility], Dr. Hoover done: Little change from prior catheterization. Patent stents in the RCA and PDA. Previously jailed posterolateral is occluded and development of a 50% stenosis of a branch of om 1. Normal LV function. :August 2019 demonstrated patent stents with 40% stenosis of 1 vessel with no stents or angioplasty performed per patient report. :November 2018 at [facility] - stent x3. :March 2017 demonstrating mild diffuse coronary disease 80% lesion small sub branch of obtuse marginal 1 and 90% stenosis distal RCA into the origin of the PDA with PTCA and stent to the RPDA/distal RCA performed by Dr. Petit. History of cataract extraction With lens implant History of coronary angioplasty with insertion of stent Drug-eluting stents for high-grade OM 99% occlusion 05/2022. History of hernia repair History of open reduction and internal fixation (ORIF) procedure (1982) Left lower extremity fracture. And the right hip pinning when he was in the 8th grade Peritoneal dialysis catheter in place S/P triple vessel bypass Sep 2023; [employer] <Genesis Eden, CANCELING MACHINE OPERATOR - Last Filed: 07/16/24 15:21> Family History Family History: Family History Father , in his late 60s Acute myocardial infarction Premature coronary artery disease; <65yo CHF (congestive heart failure) Dementia Hypertension S/P triple vessel bypass 1980s Mother Lung cancer Hypertension Daughter Celiac disease <Genesis Eden, CANCELING MACHINE OPERATOR - Last Filed: 07/16/24 15:21> Social History Social History: Social History Social History: Surrogate medical decision maker: Hodan Vargasdre (daughter) or Lorne Daigle (brother). Code status: Full code. Smoking status: Never smoker Second hand tobacco smoke exposure: No Alcohol intake: never Substance use: never Substance use type: does not use Do You Feel Safe in your Home?: Yes Lack of Transportation: YES Lack of Food: Sometimes True Current Housing: I Have Housing Concerned About Future Housing: No Difficulty Paying Gas/Electric Bills: No Difficulty Paying for Meds: YES Currently Unemployed: No Education: High School Diploma/GED Difficulty w/ Childcare or Family Care: No Living arrangements: alone Additional living arrangements comments: He is single and has 3 children. 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 Spiritual care concerns: No Agree to blood products: Yes <Genesis Eden, CANCELING MACHINE OPERATOR - Last Filed: 07/16/24 15:21> Exam Narrative: GENERAL: Well-appearing, well-nourished, and in no acute distress. HEAD: Normocephalic, atraumatic. ENT: Mucous membranes moist. NECK: Supple. CHEST: Clear to auscultation. No respiratory distress. HEART: Regular rate and rhythm. Normal peripheral pulses. ABDOMEN: Soft, nontender, nondistended. Normal dialysis catheter site left lower quadrant. EXTREMITIES: Normal range of motion. No edema. SKIN: Warm, dry, no rash. NEURO: Alert and oriented x3. PSYCH: Normal mood and affect. <Kip Beard MD - Last Filed: 07/16/24 21:45> Course Course Emergency Course: Urine with evidence of infection, CT also shows thickened bladder. Discussed this with patient. Will renal dose cefuroxime. Discharge. <Kip Beard MD - Last Filed: 07/16/24 21:45> Vital Signs Vital signs: Vital Signs Temperature 97.7 F 07/16/24 13:15 Pulse Rate 73 07/16/24 13:15 Respiratory Rate 21 H 07/16/24 13:15 Blood Pressure 157/83 H 07/16/24 13:15 Pulse Oximetry 99 07/16/24 13:15 Temperature 97.7 F 07/16/24 13:15 Pulse Rate 61 07/16/24 19:13 Respiratory Rate 18 07/16/24 19:13 Blood Pressure 154/84 H 07/16/24 19:13 Pulse Oximetry 96 07/16/24 19:13 <Genesis Eden, CANCELING MACHINE OPERATOR - Last Filed: 07/16/24 15:21> Vital Signs Temperature 97.7 F 07/16/24 13:15 Pulse Rate 73 07/16/24 13:15 Respiratory Rate 21 H 07/16/24 13:15 Blood Pressure 157/83 H 07/16/24 13:15 Pulse Oximetry 99 07/16/24 13:15 Temperature 97.7 F 07/16/24 13:15 Pulse Rate 61 07/16/24 19:13 Respiratory Rate 18 07/16/24 19:13 Blood Pressure 154/84 H 07/16/24 19:13 Pulse Oximetry 96 07/16/24 19:13 <Kip Beard MD - Last Filed: 07/16/24 21:45> MDM - Back Pain/Injury Lab Data Result diagrams: 07/16/24 13:30 07/16/24 13:30 <Genesis Eden APRN - Last Filed: 07/16/24 15:21> Labs: Lab Results 07/16/24 Range/Units 13:30 WBC 5.4 (4.5-10.0) K/mm3 RBC 3.46 L (4.6-6.20) M/mm3 Hgb 10.6 L (14.0-18.0) g/dL Hct 31.9 L (42.0-52.0) % MCV 92.2 (80-100) fl MCH 30.6 (26-34) pg MCHC 33.2 (32-36) g/dl RDW 14.8 H (11.5-14.5) % Plt Count 175 (150-375) k/mm3 MPV 10.4 (7.4-10.4) fl Immature Gran % (Auto) 0.4 (0-0.5) % Neut % (Auto) 58.2 (45.5-73.1) % Lymph % (Auto) 20.8 (18.3-44.2) % R[place] % (Auto) 15.4 H (2.6-8.5) % Eos % (Auto) 4.8 H (0-4.4) % Baso % (Auto) 0.4 (0.2-1.2) % Lymph # (Auto) 1.12 (0.9-3.2) K/mm3 R[place] # (Auto) 0.8 H (0.1-0.6) K/mm3 Eos # (Auto) 0.3 (0-0.3) K/mm3 Baso # (Auto) 0.0 (0.0-0.1) K/mm3 Abs Immat Gran (auto) 0.02 (0.00-0.031) K/mm3 Absolute Neuts (auto) 3.1 (1.3-6.7) K/mm3 Absolute Nucleated RBC 0.000 (0.0-0.012) K/mm3 Nucleated RBC % 0.0 (0.0-0.2) % Sodium 134 L (137-145) mmol/L Potassium 4.3 (3.4-5.0) mmol/L Chloride 93 L (98-107) mmol/L Carbon Dioxide 28 (22-30) mmol/L Anion Gap 13 H (4-12) mmol/L BUN 65 H (9-20) mg/dL Creatinine 9.20 H (0.7-1.3) mg/dL Estim Creat Clear Calc 11 ml/min Estimated GFR 6 L (59 - ) Glucose 272 H (65-110) mg/dL Calcium 8.8 (8.4-10.2) mg/dL Total Bilirubin 0.6 (0.2-1.3) mg/dL AST 27 (17-59) U/L ALT 22 (6-50) U/L Alkaline Phosphatase 95 (38-126) U/L Total Protein 8.0 (6.3-8.2) g/dL Albumin 4.1 (3.5-5.1) g/dL Lipase 44 (23-300) U/L Urine Color Red H (Yellow) Urine Appearance Turbid H (Clear) Urine pH TNP Ur Specific [place] 1.026 (1.001-1.035) Urine Protein 2+ H (Negative) mg/dL Urine Glucose (UA) 1+ H (Negative) mg/dL Urine Ketones Negative (Negative) mg/dL Ur Blood (Man) 2+ H (Negative) Urine Nitrate Positive H (Negative) Urine Bilirubin 1+ H (Negative) Urine Urobilinogen 0.2 (<2.0) mg/dL Leukocyte Esterase Rfl 2+ H (Negative) BENJAMIN/UL Urine RBC >100 H (0-2) /hpf Urine WBC >100 H (0-3) /hpf Ur Squamous Epith Cells Unable to determine (Few) /hpf Urine Bacteria Unable to determine /hpf <Genesis Eden, CANCELING MACHINE OPERATOR - Last Filed: 07/16/24 15:21> Lab Results 07/16/24 Range/Units 13:30 WBC 5.4 (4.5-10.0) K/mm3 RBC 3.46 L (4.6-6.20) M/mm3 Hgb 10.6 L (14.0-18.0) g/dL Hct 31.9 L (42.0-52.0) % MCV 92.2 (80-100) fl MCH 30.6 (26-34) pg MCHC 33.2 (32-36) g/dl RDW 14.8 H (11.5-14.5) % Plt Count 175 (150-375) k/mm3 MPV 10.4 (7.4-10.4) fl Immature Gran % (Auto) 0.4 (0-0.5) % Neut % (Auto) 58.2 (45.5-73.1) % Lymph % (Auto) 20.8 (18.3-44.2) % Rusk % (Auto) 15.4 H (2.6-8.5) % Eos % (Auto) 4.8 H (0-4.4) % Baso % (Auto) 0.4 (0.2-1.2) % Lymph # (Auto) 1.12 (0.9-3.2) K/mm3 R[place] # (Auto) 0.8 H (0.1-0.6) K/mm3 Eos # (Auto) 0.3 (0-0.3) K/mm3 Baso # (Auto) 0.0 (0.0-0.1) K/mm3 Abs Immat Gran (auto) 0.02 (0.00-0.031) K/mm3 Absolute Neuts (auto) 3.1 (1.3-6.7) K/mm3 Absolute Nucleated RBC 0.000 (0.0-0.012) K/mm3 Nucleated RBC % 0.0 (0.0-0.2) % Sodium 134 L (137-145) mmol/L Potassium 4.3 (3.4-5.0) mmol/L Chloride 93 L (98-107) mmol/L Carbon Dioxide 28 (22-30) mmol/L Anion Gap 13 H (4-12) mmol/L BUN 65 H (9-20) mg/dL Creatinine 9.20 H (0.7-1.3) mg/dL Estim Creat Clear Calc 11 ml/min Estimated GFR 6 L (59 - ) Glucose 272 H (65-110) mg/dL Calcium 8.8 (8.4-10.2) mg/dL Total Bilirubin 0.6 (0.2-1.3) mg/dL AST 27 (17-59) U/L ALT 22 (6-50) U/L Alkaline Phosphatase 95 (38-126) U/L Total Protein 8.0 (6.3-8.2) g/dL Albumin 4.1 (3.5-5.1) g/dL Lipase 44 (23-300) U/L Urine Color Red H (Yellow) Urine Appearance Turbid H (Clear) Urine pH TNP Ur Specific [place] 1.026 (1.001-1.035) Urine Protein 2+ H (Negative) mg/dL Urine Glucose (UA) 1+ H (Negative) mg/dL Urine Ketones Negative (Negative) mg/dL Ur Blood (Man) 2+ H (Negative) Urine Nitrate Positive H (Negative) Urine Bilirubin 1+ H (Negative) Urine Urobilinogen 0.2 (<2.0) mg/dL Leukocyte Esterase Rfl 2+ H (Negative) BENJAMIN/UL Urine RBC >100 H (0-2) /hpf Urine WBC >100 H (0-3) /hpf Ur Squamous Epith Cells Unable to determine (Few) /hpf Urine Bacteria Unable to determine /hpf <Kip Beard MD - Last Filed: 07/16/24 21:45> Imaging Data Radiologist's impression: ITS Impressions Abdomen/Pelvis CT 07/16/24 17:05 IMPRESSION: 1. Left pleural effusion with adjacent atelectasis. 2. Atelectatic changes in the lingula. 3. Cholelithiasis. 4. Right hydronephrotic changes with slightly dilated ureter. No stones seen. 5. Thickened wall of the urinary bladder suggestive of cystitis. Cystoscopy is advised. 6. Free fluid in the abdomen with catheter seen in the left lower quadrant. 7. Inflammatory changes around the umbilicus suggestive of cellulitis. 8. Atrophic pancreas. 9. Constipation. <Kip Beard MD - Last Filed: 07/16/24 21:45> Discharge Plan Discharge Clinical Impression: Acute UTI <Genesis Eden APRN - Last Filed: 07/16/24 15:21> Patient Disposition: Home, Self-Care <Genesis Eden APRN - Last Filed: 07/16/24 15:21> Condition: Stable <Genesis Eden APRN - Last Filed: 07/16/24 15:21> Instructions: Antibiotic Form, Urinary Tract Infection in Men (ED) <Genesis Eden, CANCELING MACHINE OPERATOR - Last Filed: 07/16/24 15:21> Additional Instructions: You should return to the emergency department if you develop severe nausea and vomiting and are unable to keep liquids down, if you develop severe back/flank or stomach pain, or if your symptoms are not clearly improving at home. You received your 1st dose of antibiotics in the ER. Take 1 dose of antibiotic daily due to your renal function. Began tomorrow. <Genesis Eden, TRACY - Last Filed: 07/16/24 15:21> Prescriptions: New cefuroxime axetil 500 mg tablet 500 mg PO DAILY Qty: 9 0RF hydrocodone-acetaminophen 5-325 mg tablet 1 tablet PO Q6H PRN (Reason: pain) Qty: 10 0RF No Action calcitriol 0.25 mcg Capsule 0.25 mcg PO QAM ergocalciferol (vitamin D2) [Vitamin D2] 50,000 unit Capsule 50,000 unit PO WEEKLY Rx Instructions: on mondays at 0900 nitroglycerin 0.4 mg Tablet, Sublingual 0.4 mg SUBLINGUAL Q5-15M PRN (Reason: Chest Pain) insulin lispro [Humalog U-100 Insulin] 100 unit/mL solution 100 unit continuous subcutaneous infusion DAILY MDD 100 Qty: 100 1RF (DME) Omnipod 5 G6 Pods (Gen 5) Cartridge SUBCUT Qty: 45 2RF Rx Instructions: Change every 48 hours insulin glargine [Lantus Solostar U-100 Insulin] 100 unit/mL (3 mL) insulin pen 30 unit subcut DAILY PRN (Reason: insulin pump malfunction) Qty: 15 1RF Humulin N NPH Insulin KwikPen 100 unit/mL (3 mL) insulin pen 10 unit subcut DAILY PRN (Reason: if insulin pump malfunction; before dialysis) Qty: 15 1RF levothyroxine 25 mcg tablet 25 mcg PO DAILY Qty: 90 1RF ezetimibe [Zetia] 10 mg Tablet 10 mg PO DAILY cetirizine [All Day Allergy (cetirizine)] 10 mg Tablet 10 mg PO DAILY atorvastatin 80 mg tablet 80 mg PO DAILY albuterol sulfate [ProAir HFA] 90 mcg/actuation HFA aerosol inhaler 1 inh inhalation QID PRN (Reason: shortness of breath or wheezing) Qty: 8.5 0RF gemfibrozil 600 mg tablet 600 mg PO Q12H febuxostat 40 mg tablet 40 mg PO QPM Linzess 72 mcg capsule 72 mcg PO DAILY PRN (Reason: Diarrhea) warfarin 3 mg tablet 3 mg PO DAILY Qty: 30 0RF Rx Instructions: Tuesdays takes 1 1/2 tab meloxicam 7.5 mg tablet 7.5 mg PO DAILY omeprazole 20 mg capsule,delayed release(DR/EC) 20 mg PO DAILY cephalexin 500 mg capsule 500 mg PO Q12H Qty: 14 0RF metoprolol succinate 50 mg tablet extended release 24 hr 25 mg PO HS potassium chloride 20 mEq tablet extended release 20 meq PO DAILY PRN (Reason: Cramps) torsemide 100 mg tablet 100 mg PO DAILY icosapent ethyl [Vascepa] 1 gram capsule 1 g PO Q12H moxifloxacin 0.5 % drops 1 drp LEFT EYE QID ketorolac 10 mg tablet 5 mg PO Q8H PRN (Reason: pain) 3 Days Qty: 6 0RF Rx Instructions: maximum total duration of 5 days from all oral, intranasal, or parenteral f ormulations oxycodone 5 mg capsule 5 mg PO Q8H PRN (Reason: pain) Qty: 10 0RF oxycodone 5 mg capsule 5 mg PO Q8H PRN (Reason: pain) Qty: 10 0RF (DME) pen needle, diabetic [BD Lucrecia 2nd Gen Pen Needle] 32 gauge x 5/32 needle See Rx Instructions .ROUTE .COMPLEX Qty: 100 0RF Dose Instruction: TO ADMINISTER INSULIN DIRECTED Rx Instructions: TO ADMINISTER INSULIN DIRECTED Gvoke HypoPen 2-Pack 1 mg/0.2 mL auto-injector See Rx Instructions .ROUTE .COMPLEX Qty: 0.4 2RF Dose Instruction: INJECT 1 MG(0.2 ML) UNDER THE SKIN ONCE A SINGLE DOSE, MAY REPEAT ONCE AFTER 15 MINUTES IF NO RESPONSE Rx Instructions: INJECT 1 MG(0.2 ML) UNDER THE SKIN ONCE A SINGLE DOSE, MAY REPEAT ONCE AFTER 15 MINUTES IF NO RESPONSE <Genesis Eden APRN - Last Filed: 07/16/24 15:21> Follow-up/Referrals: Matthew,MD Aditya [Primary Care Provider] - 1 Week <Genesis Eden, CANCELING MACHINE OPERATOR - Last Filed: 07/16/24 15:21>
[2024-07-16 16:04] VITALS: BP 104/74; PULSE 69; RESP 19; O2SAT 98
[2024-07-16] MEDS: MORPHINE SULFATE (*CRX) 4 MG/ML INJ IV PUSH (16:53)
[2024-07-16] MEDS: ONDANSETRON INJ 4 MG/2 ML VIAL IV PUSH (16:53)
--- NOTE | 2024-07-16 16:55 | PC.NURSE ---
Pt to CT scan via stretcher at this time.
[2024-07-16 17:27] VITALS: BP 145/73; PULSE 65; RESP 17; O2SAT 97
[2024-07-16] MEDS: cefuroxime axetiL 250 MG TABLET 500 MG PO (18:27)
[2024-07-16 18:28] VITALS: BP 144/95; PULSE 62; RESP 16; O2SAT 96
[2024-07-16 19:13] VITALS: BP 154/84; PULSE 61; RESP 18; O2SAT 96
== END 2024-07-16 19:14 | disposition home or self-care (01) ==
PROVIDERS: Emergency Provider Emergency Medicine; PCP Family Medicine
DX: N39.0 Urinary tract infection, site not specified (principal); E10.22 Type 1 diabetes mellitus with diabetic chronic kidney disease; I13.2 Hypertensive heart and chronic kidney disease with heart failure and with stage 5 chronic kidney disease, or end stage renal disease; N18.6 End stage renal disease; I50.9 Heart failure, unspecified; Z99.2 Dependence on renal dialysis; E10.42 Type 1 diabetes mellitus with diabetic polyneuropathy; E10.319 Type 1 diabetes mellitus with unspecified diabetic retinopathy without macular edema; D63.1 Anemia in chronic kidney disease; I25.10 Atherosclerotic heart disease of native coronary artery without angina pectoris; I48.0 Paroxysmal atrial fibrillation; I82.531 Chronic embolism and thrombosis of right popliteal vein; N25.0 Renal osteodystrophy; N25.81 Secondary hyperparathyroidism of renal origin; G47.33 Obstructive sleep apnea (adult) (pediatric); K21.9 Gastro-esophageal reflux disease without esophagitis; Z95.2 Presence of prosthetic heart valve; Z95.5 Presence of coronary angioplasty implant and graft; Z87.442 Personal history of urinary calculi; Z96.1 Presence of intraocular lens; Z98.49 Cataract extraction status, unspecified eye; Z79.4 Long term (current) use of insulin; Z79.899 Other long term (current) drug therapy; Z79.01 Long term (current) use of anticoagulants; J90 Pleural effusion, not elsewhere classified; K80.20 Calculus of gallbladder without cholecystitis without obstruction; R93.41 Abnormal radiologic findings on diagnostic imaging of renal pelvis, ureter, or bladder; K86.89 Other specified diseases of pancreas; K59.00 Constipation, unspecified
CPT/HCPCS: 36415; 74176; 80053; 81001; 83690; 85025; 87086; 96374; 96375; 99284; A9270; J2270; J2405

== ENCOUNTER 2024-07-29 23:27 | Inpatient (IN) | payer MEDICARE, MEDICAID, SELFPAY ==
--- NOTE | ~2024-07-29 | XR_ITS ---
XR chest 1V portable 08/02/2024 09:30 Indication: Tachycardia Procedure: AP portable chest Comparison: Comparison to multiple prior studies sequentially, with oldest reviewed study dated 10/10. Findings: Status post median sternotomy for CABG. Moderate cardiomegaly. Mild pulmonary vascular mynor estion. There are infiltrates of the left mid and lower lung, consistent with pneumonia. Small left p leural effusion. Impression: 1: Left basilar infiltrates, consistent with pneumonia. 2: Small left pleural effusion. Reviewed, dictated and finalized at location B. O FREQUENCY ENGINEER Impression: 1: Left basilar infiltrates, consistent with pneumonia. 2: Small left pleural effusion.
[2024-07-29 23:28] VITALS: BP 132/83; PULSE 102; RESP 20; TEMP 36.1; O2SAT 98
[2024-07-29 23:44] LABS: Basophils Percent Auto 0.4 % (0.2-1.2); Eosinophils Percent Auto 0.6 % (0-4.4); Hematocrit 32.6 % (42.0-52.0); Hemoglobin 10.5 g/dL (14.0-18.0); Immature Granulocyte Absolute 0.03 K/mm3 (0.00-0.031); Immature Granulocyte Percent A 0.6 % (0-0.5); Lymphocytes Absolute Auto 0.52 K/mm3 (0.9-3.2); Lymphocytes Percent Auto 10.4 % (18.3-44.2); Mean Corpuscular HGB Conc 32.2 g/dl (32-36); Mean Corpuscular Hemoglobin 30.7 pg (26-34); Mean Corpuscular Volume 95.3 fl (80-100); Monocytes Absolute Auto 0.4 K/mm3 (0.1-0.6); Monocytes Percent Auto 8.4 % (2.6-8.5); Neutrophils Percent Auto 79.6 % (45.5-73.1); Platelet Count Result 192 k/mm3 (150-375); Red Blood Count 3.42 M/mm3 (4.6-6.20); Red Cell Distribution Width 14.5 % (11.5-14.5)
[2024-07-30] VITALS (7 sets, daily range): BP systolic 112–131; BP diastolic 62–94; PULSE 105–112; RESP 14–20; TEMP 36.3–36.6; O2SAT 95–100; BMI 38.2
[2024-07-30 00:01] LABS: Alanine Aminotransferase 34 U/L (6-50); Albumin Level 3.7 g/dL (3.5-5.1); Alkaline Phosphatase 107 U/L (38-126); Anion Gap 19 mmol/L (4-12); Aspartate Amino Transferase 42 U/L (17-59); Bilirubin,Total 0.6 mg/dL (0.2-1.3); Blood Urea Nitrogen 70 mg/dL (9-20); Calcium 8.4 mg/dL (8.4-10.2); Carbon Dioxide 16 mmol/L (22-30); Chloride 89 mmol/L (98-107); Estimated CRCL calculation 12 ml/min; Estimated Glomerular Filt Rate 6; Phosphorus 6.4 mg/dL (2.5-4.5); Potassium 5.3 mmol/L (3.4-5.0); Sodium 124 mmol/L (137-145)
[2024-07-30 00:08] LABS: Beta-Hydroxybutyrate/Acetoacetate 2.32 mmol/L (0.02-0.27)
[2024-07-30 00:09] LABS: Glucose 786 mg/dL (65-110)
[2024-07-30 00:37] LABS: Alveolar/Arterial O2 Gradient 34.6 mmHg; Base Excess ABG -7.1 mEq/l (+/-2.0); Carboxyhemoglobin 1.1 % THb (0-2.0); Fractional Inspired Oxygen 21 %; HCO3 ABG 17.5 mEq/l (22.0-26.0); Methemoglobin ABG 0.1 %THb (0-1.5); Oxygen Content ABG 14.1 %vol (16.0-22.0); Oxyhemoglobin 92.9 % THb (90.0-100.0); PO2 ABG 76.8 mmHg (80.0-100.0); PO2 FiO2 Ratio Arterial Blood 3.66 %; Reduced Hemoglobin 5.9 %THb (0-5.0); Total Hemoglobin 10.7 g/dL (12.0-18.0); pH ABG 7.356 (7.350-7.450)
[2024-07-30 00:38] LABS: Device ROOM AIR; Modified Allen's Test Pass; Site Drawn RIGHT BRACHIAL
[2024-07-30 00:44] LABS: Add Urine Microscopic? YES; Appearance Urine Cloudy (Clear); Bilirubin Urine Negative (Negative); Blood Urine 3+ (Negative); Color Urine Yellow (Yellow); Glucose Urine UA 3+ mg/dL (Negative); Ketones Urine Trace mg/dL (Negative); Leukocyte Esterase Ur 1+ LEU/UL (Negative); Need Manual Microscopic Reviewed; Nitrate Urine Negative (Negative); Non Pathogenic Casts 0-2; Protein Urine 2+ mg/dL (Negative); RBC Urine 51-100 /hpf (0-2); Specific Grav Ur 1.025 (1.001-1.035); Squamous Epithelial Cell Urine Occasional /hpf (Few); Urobilinogen Urine 0.2 mg/dL (<2.0)
[2024-07-30 00:46] LABS: Bacteria Urine 1+ /hpf
--- NOTE | 2024-07-30 01:06 | ED_ITS ---
HPI - Recheck/Abnormal Lab/Rx General Chief Complaint: Recheck/Abnormal Lab/Rx <Annmarie Gong PA-C - Last Filed: 07/30/24 01:50> Stated Complaint: blood sugar high <ALISIA Shaw Last Filed: 07/30/24 01:50> Time Seen by Provider: 07/30/24 00:13 <ALISIA Shaw Last Filed: 07/30/24 01:50> Source: patient and old records reviewed <ALISIA Shaw Last Filed: 07/30/24 01:50> Mode of arrival: ambulatory <ALISIA Shaw Last Filed: 07/30/24 01:50> Limitations: no limitations <ALISIA Shaw Last Filed: 07/30/24 01:50> History of Present Illness HPI narrative: Patient is a 53-year-old male, with PMH of DM1, ESRD on peritoneal dialysis on kidney transplant list, CHF, CAD s/p CABG, mechanical valve replacement on Warfarin, who presents the ED with report of elevated blood sugars. Patient has history of multiple previous episodes of DKA. States his blood sugars were elevated into the mid 200s this morning. He did give himself an insulin bolus at that time. He was then at several doctors appointments today and noted his BG to be reading high on his pump upon returning home. He gave himself another insulin bolus, but states his blood sugars continue to be elevated. He began having nausea, had 1 episode of emesis. States this is similar to what he experiences with previous DKA episodes. He did feel slightly better after having the vomiting episode. He then prompted here for further evaluation. Denies abdominal pain, cough or cold symptoms, fevers. Denies chest pain, sob. <ALISIA Shaw Last Filed: 07/30/24 01:50> Related Data Home Medications: Home Medications ?Medication ?Instructions ?Recorded ?Confirmed ?Last Taken ?Type calcitriol 0.25 mcg capsule 0.25 mcg PO QAM 06/04/19 07/30/24 07/29/24 History ergocalciferol (vitamin D2) 1,250 50,000 unit PO WEEKLY 06/04/19 07/30/24 07/29/24 History mcg (50,000 unit) capsule (Vitamin D2) nitroglycerin 0.4 mg sublingual 0.4 mg sublingual Q5-15M PRN Chest 06/04/19 07/30/24 05/19/23 16:30 History tablet Pain ezetimibe 10 mg tablet (Zetia) 10 mg PO DAILY 09/09/19 07/30/24 07/29/24 History cetirizine 10 mg tablet (All Day 10 mg PO DAILY 12/26/19 07/30/24 07/29/24 History Allergy (cetirizine)) atorvastatin 80 mg tablet 80 mg PO DAILY 11/26/20 07/30/24 07/29/24 History metoprolol succinate 50 mg 25 mg PO HS 05/20/23 07/30/24 07/28/24 History tablet,extended release 24 hr potassium chloride 20 mEq 20 meq PO DAILY PRN Cramps 05/20/23 07/30/24 05/19/23 10:00 History tablet,extended release febuxostat 40 mg tablet 40 mg PO QPM 07/25/23 07/30/24 07/28/24 History gemfibrozil 600 mg tablet 600 mg PO Q12H 07/25/23 07/30/24 07/29/24 History linaclotide 72 mcg capsule 72 mcg PO DAILY PRN Diarrhea 07/25/23 07/30/24 Unknown History (Linzess) icosapent ethyl 1 gram capsule 1 g PO Q12H 02/16/24 07/30/24 07/29/24 History (Vascepa) torsemide 100 mg tablet 100 mg PO DAILY 02/16/24 07/30/24 07/29/24 History moxifloxacin 0.5 % eye drops 1 drp LEFT EYE QID 05/27/24 07/30/24 05/26/24 History omeprazole 20 mg capsule,delayed 20 mg PO DAILY 06/06/24 07/30/24 07/29/24 History release amlodipine 10 mg tablet 10 mg PO HS 07/30/24 07/30/24 07/28/24 History calcium acetate(phosphat bind) 667 667 mg PO QID 07/30/24 07/30/2424 History mg capsule erythromycin 5 mg/gram (0.5 %) eye 1 applic EACH EYE HS 07/30/24 07/30/24 Unknown History ointment glucagon 1 mg/0.2 mL subcutaneous See Rx Instructions .Route 07/30/24 07/30/24 Unknown History auto-injector (Gvoke HypoPen .COMPLEX PRN Hypoglycemia 2-Pack) warfarin 3 mg tablet 1.5 mg PO WEEKLY 07/30/24 07/30/24 07/26/24 History <Annmarie Gong PA-C - Last Filed: 07/30/24 01:50> Allergies/Adverse Reactions: Allergies Allergy/AdvReac Type Severity Reaction Status Date / Time allopurinol Allergy Severe Other Verified 07/30/24 14:28 iodine Allergy Severe Rash Verified 07/30/24 14:28 iohexol (From CONTRAST - CT, Allergy Severe Difficulty Verified 07/30/24 14:28 XRAY) Breathing ticagrelor Allergy Intermediate Rash Verified 07/30/24 14:28 <Annmarie Gong PA-C - Last Filed: 07/30/24 01:50> Review of Systems 2 Review of Systems: All systems reviewed & are unremarkable except as noted in HPI. <Annmarie Gong PA-C - Last Filed: 07/30/24 01:50> All systems reviewed & are unremarkable except as noted in HPI and below < Annmarie Gong PA-C - Last Filed: 07/30/24 01:50> FORMERLY [facility], [facility] Past Medical History Medical History: Medical History Anemia in chronic kidney disease Anxiety Arthritis Chronic anticoagulation Congestive heart failure Echocardiogram May 2017 EF of 50% with hypokinetic apical, inferior and basal inferior lateral segment, mild enlargement of left atrium. Coronary artery disease History of several stents including complex procedure at [facility]/ stenting of a heavily calcified CX on OM using shockwave treatment. Deep venous thrombosis Chronic right popliteal DVT. Diabetic peripheral neuropathy Diabetic retinopathy End-stage renal disease on peritoneal dialysis Essential hypertension Gastroesophageal reflux disease Gout Hyperlipidemia Insulin dependent diabetes mellitus Obstructive sleep apnea With inconsistent CPAP use. Paroxysmal atrial fibrillation Renal osteodystrophy Right hand dominant Secondary hyperparathyroidism of renal origin Seizure X1 with etiology unknown Type 1 diabetes mellitus Onset around age 13. <Annmarie Gong PA-C - Last Filed: 07/30/24 01:50> Surgical History Surgical History: Surgical History History of anterior cruciate ligament surgery (2000) Left knee History of appendectomy (2006) History of arthroscopy of left knee History of bilateral carpal tunnel release Right 05/03/2018. Left 06/02/2018. History of cardiac catheterization 01/21/2021 catheterization at [facility], Dr. Hoover done: Little change from prior catheterization. Patent stents in the RCA and PDA. Previously jailed posterolateral is occluded and development of a 50% stenosis of a branch of om 1. Normal LV function. :August 2019 demonstrated patent stents with 40% stenosis of 1 vessel with no stents or angioplasty performed per patient report. :November 2018 at [facility] - stent x3. :March 2017 demonstrating mild diffuse coronary disease 80% lesion small sub branch of obtuse marginal 1 and 90% stenosis distal RCA into the origin of the PDA with PTCA and stent to the RPDA/distal RCA performed by Dr. Petit. History of cataract extraction With lens implant History of coronary angioplasty with insertion of stent Drug-eluting stents for high-grade OM 99% occlusion 05/2022. History of hernia repair History of open reduction and internal fixation (ORIF) procedure (1982) Left lower extremity fracture. And the right hip pinning when he was in the 8th grade Peritoneal dialysis catheter in place S/P triple vessel bypass Sep 2023; [facility] <Annmarie Gong PA-C - Last Filed: 07/30/24 01:50> Family History Family History: Family History Father , in his late 60s Acute myocardial infarction Premature coronary artery disease; <65yo CHF (congestive heart failure) Dementia Hypertension S/P triple vessel bypass 1980s Mother Lung cancer Hypertension Daughter Celiac disease <Annmarie Gong PA-C - Last Filed: 07/30/24 01:50> Social History Social History: Social History Social History: Surrogate medical decision maker: Hodan Daigle (daughter) or Lorne Daigle (brother). Code status: Full code. Smoking status: Never smoker Second hand tobacco smoke exposure: No Alcohol intake: never Substance use: never Substance use type: does not use Do You Feel Safe in your Home?: Yes Lack of Transportation: YES Lack of Food: Sometimes True Current Housing: I Have Housing Concerned About Future Housing: No Difficulty Paying Gas/Electric Bills: No Difficulty Paying for Meds: YES Currently Unemployed: No Education: High School Diploma/GED Difficulty w/ Childcare or Family Care: No Living arrangements: alone Additional living arrangements comments: He is single and has 3 children. 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 Spiritual care concerns: No Agree to blood products: Yes <Annmarie Gong PA-C - Last Filed: 07/30/24 01:50> Exam 2 Narrative: GENERAL: Well appearing, obese with BMI of 38.3, non-toxic, in no acute distress. HEAD: Normocephalic, atraumatic. RESPIRATORY: Airway patent, respirations nonlabored. Clear to auscultation bilaterally, no rales, rhonchi, wheezing. No significant focal lung sounds. CARDIOVASCULAR: Borderline tachycardic with regular rhythm without murmurs, rubs, or gallops. ABDOMINAL: Soft, no tenderness throughout abdomen, nondistended. Normoactive BS. MUSCULOSKELETAL: Moves all extremities. No gross deformities. SKIN: Warm, dry, normal color. NEURO: A&O X3. Speech clear. Cranial nerves II-XII grossly intact. Steady gait. No ataxic movements. PSYCHIATRIC: Appropriate mood and affect. Normal interaction. <Annmarie Gong PA-C - Last Filed: 07/30/24 01:50> Course EMERGENCY MANAGEMENT PROGRAM SPECIALIST/PA Physician Supervision PA discussed patient with me. History of ESRD on peritoneal dialysis and diabetes. In DKA but because of these issues, careful balance of fluids and insulin (the poor functioning kidneys will have difficulty processing the latter). Started with 1L IV Fluids and insulin bolus and, given patient will be going to the ICU, fiction and nonfiction writer prose notified early for further recommendations and management given they have admitted this patient before and are familiar with his care. I otherwise was Available for consultation in the Emergency Department but did not personally evaluate this patient. <Suzanne Vega MD - Last Filed: 07/30/24 18:06> Vital Signs Vital signs: Vital Signs Temperature 97 F L 07/29/24 23:28 Pulse Rate 102 H 07/29/24 23:28 Respiratory Rate 20 07/29/24 23:28 Blood Pressure 132/83 07/29/24 23:28 Pulse Oximetry 98 07/29/24 23:28 Temperature 97.4 F L 07/30/24 16:20 Pulse Rate 109 H 07/30/24 16:20 Respiratory Rate 17 07/30/24 16:20 Blood Pressure 120/69 07/30/24 16:20 Pulse Oximetry 100 07/30/24 16:20 <Annmarie Gong PA-C - Last Filed: 07/30/24 01:50> Vital Signs Temperature 97 F L 07/29/24 23:28 Pulse Rate 102 H 07/29/24 23:28 Respiratory Rate 20 07/29/24 23:28 Blood Pressure 132/83 07/29/24 23:28 Pulse Oximetry 98 07/29/24 23:28 Temperature 97.4 F L 07/30/24 16:20 Pulse Rate 109 H 07/30/24 16:20 Respiratory Rate 17 07/30/24 16:20 Blood Pressure 120/69 07/30/24 16:20 Pulse Oximetry 100 07/30/24 16:20 <Suzanne Vega MD - Last Filed: 07/30/24 18:06> MDM - Recheck/Abnormal Lab/Rx MDM Narrative Medical decision making narrative: Patient presented to ED with elevated blood sugar, history of type 1 diabetes with insulin pump, history of multiple previous episodes DKA. Well known to our facility. Patient is a peritoneal dialysis patient, currently on the kidney transplant list at [facility]. Patient tachycardic upon arrival. In no acute distress. Laboratory studies are consistent with DKA. Blood sugar on CMP 786. Anion gap of 19. Bicarb 16. Beta hydroxybutyrate 2.32. There are trace ketones on urinalysis. PH borderline on ABG at 7.356. DKA protocol initiated. Sodium on CMP 124. Corrected sodium based on hyperglycemia 135-140. Potassium slightly elevated 5.3. Creatinine consistent with baseline today, 8.7. Patient did receive 1/4 of his cycles of peritoneal dialysis tonight. He states he had to stop because he did not feel well. Electrolytes are otherwise stable on blood work. No leukocytosis. Stable H&H. UA with 1+ leuk esterase, 11-20 white blood cell count. Patient denies urinary complaints at this time. Will send for culture. Patient given 1 L fluid bolus in the ED. Will need cautious hydration to avoid fluid overload being a dialysis patient. Given 6 unit insulin bolus per DKA protocol. Insulin drip started. Discussed case with Dr. Mi, fiction and nonfiction writer prose, accepted patient to ICU. Agreed with plan. Discussed case with Dr. Hull, hospitalist, accepted patient for admission. Nephrology will be consulted for dialysis needs. Patient does not require emergent dialysis at this time. <Annmarie Gong PA-C - Last Filed: 07/30/24 01:50> Medical Records Attestation: I reviewed the patient's medical records. <Annmarie Gong PA-C - Last Filed: 07/30/24 01:50> Lab Data Attestation: I reviewed the patient's lab results. <Annmarie Gong PA-C - Last Filed: 07/30/24 01:50> Result diagrams: 07/30/24 10:38 07/30/24 17:14 <Annmarie Gong PA-C - Last Filed: 07/30/24 01:50> Labs: Lab Results 07/29/24 07/29/24 07/30/24 Range/Units 23:30 23:37 00:30 WBC 5.0 (4.5-10.0) K/mm3 RBC 3.42 L (4.6-6.20) M/mm3 Hgb 10.5 L (14.0-18.0) g/dL Hct 32.6 L (42.0-52.0) % MCV 95.3 (80-100) fl MCH 30.7 (26-34) pg MCHC 32.2 (32-36) g/dl RDW 14.5 (11.5-14.5) % Plt Count 192 (150-375) k/mm3 MPV 11.0 H (7.4-10.4) fl Immature Gran % (Auto) 0.6 H (0-0.5) % Neut % (Auto) 79.6 H (45.5-73.1) % Lymph % (Auto) 10.4 L (18.3-44.2) % Woods % (Auto) 8.4 (2.6-8.5) % Eos % (Auto) 0.6 (0-4.4) % Baso % (Auto) 0.4 (0.2-1.2) % Lymph # (Auto) 0.52 L (0.9-3.2) K/mm3 Woods # (Auto) 0.4 (0.1-0.6) K/mm3 Eos # (Auto) 0.0 (0-0.3) K/mm3 Baso # (Auto) 0.0 (0.0-0.1) K/mm3 Abs Immat Gran (auto) 0.03 (0.00-0.031) K/mm3 Absolute Neuts (auto) 4.0 (1.3-6.7) K/mm3 Absolute Nucleated RBC 0.000 (0.0-0.012) K/mm3 Nucleated RBC % 0.0 (0.0-0.2) % PT 39.1 H (11.1-14.7) Seconds INR 4.0 APTT 46.4 H (22.3-36.8) Seconds Methemoglobin 0.1 (0-1.5) %THb Sodium 124 L (137-145) mmol/L Potassium 5.3 H (3.4-5.0) mmol/L Chloride 89 L (98-107) mmol/L Carbon Dioxide 16 L (22-30) mmol/L Anion Gap 19 H (4-12) mmol/L BUN 70 H (9-20) mg/dL Creatinine 8.70 H (0.7-1.3) mg/dL Estim Creat Clear Calc 12 ml/min Estimated GFR 6 L (59 - ) Glucose 786 H* (65-110) mg/dL POC Capillary Glucose > 500 H* (65-105) mg/dl Hemoglobin A1c (<5.7) % Calcium 8.4 (8.4-10.2) mg/dL Phosphorus 6.4 H (2.5-4.5) mg/dL Magnesium 2.0 (1.6-2.3) mg/dL Total Bilirubin 0.6 (0.2-1.3) mg/dL AST 42 (17-59) U/L ALT 34 (6-50) U/L Alkaline Phosphatase 107 (38-126) U/L Total Protein 6.0 L (6.3-8.2) g/dL Albumin 3.7 (3.5-5.1) g/dL Beta-Hydroxybutyrate/Acetoacetate 2.32 H (0.02-0.27) mmol/L Urine Color Yellow (Yellow) Urine Appearance Cloudy H (Clear) Urine pH 5.0 (5.0-9.0) Ur Specific Esmond 1.025 (1.001-1.035) Urine Protein 2+ H (Negative) mg/dL Urine Glucose (UA) 3+ H (Negative) mg/dL Urine Ketones Trace H (Negative) mg/dL Ur Blood (Man) 3+ H (Negative) Urine Nitrate Negative (Negative) Urine Bilirubin Negative (Negative) Urine Urobilinogen 0.2 (<2.0) mg/dL Add Ur Microanalysis Reviewed Leukocyte Esterase Rfl 1+ H (Negative) BENJAMIN/UL Urine RBC 51-100 H (0-2) /hpf Urine WBC 11-20 H (0-3) /hpf Ur Squamous Epith Cells Occasional (Few) /hpf Urine Bacteria 1+ /hpf Urine Casts 0-2 07/30/24 Range/Units 00:53 WBC (4.5-10.0) K/mm3 RBC (4.6-6.20) M/mm3 Hgb (14.0-18.0) g/dL Hct (42.0-52.0) % MCV (80-100) fl MCH (26-34) pg MCHC (32-36) g/dl RDW (11.5-14.5) % Plt Count (150-375) k/mm3 MPV (7.4-10.4) fl Immature Gran % (Auto) (0-0.5) % Neut % (Auto) (45.5-73.1) % Lymph % (Auto) (18.3-44.2) % Woods % (Auto) (2.6-8.5) % Eos % (Auto) (0-4.4) % Baso % (Auto) (0.2-1.2) % Lymph # (Auto) (0.9-3.2) K/mm3 Woods # (Auto) (0.1-0.6) K/mm3 Eos # (Auto) (0-0.3) K/mm3 Baso # (Auto) (0.0-0.1) K/mm3 Abs Immat Gran (auto) (0.00-0.031) K/mm3 Absolute Neuts (auto) (1.3-6.7) K/mm3 Absolute Nucleated RBC (0.0-0.012) K/mm3 Nucleated RBC % (0.0-0.2) % PT (11.1-14.7) Seconds INR APTT (22.3-36.8) Seconds Methemoglobin (0-1.5) %THb Sodium (137-145) mmol/L Potassium (3.4-5.0) mmol/L Chloride (98-107) mmol/L Carbon Dioxide (22-30) mmol/L Anion Gap (4-12) mmol/L BUN (9-20) mg/dL Creatinine (0.7-1.3) mg/dL Estim Creat Clear Calc ml/min Estimated GFR (59 - ) Glucose (65-110) mg/dL POC Capillary Glucose (65-105) mg/dl Hemoglobin A1c 8.7 H (<5.7) % Calcium (8.4-10.2) mg/dL Phosphorus (2.5-4.5) mg/dL Magnesium (1.6-2.3) mg/dL Total Bilirubin (0.2-1.3) mg/dL AST (17-59) U/L ALT (6-50) U/L Alkaline Phosphatase (38-126) U/L Total Protein (6.3-8.2) g/dL Albumin (3.5-5.1) g/dL Beta-Hydroxybutyrate/Acetoacetate (0.02-0.27) mmol/L Urine Color (Yellow) Urine Appearance (Clear) Urine pH (5.0-9.0) Ur Specific Esmond (1.001-1.035) Urine Protein (Negative) mg/dL Urine Glucose (UA) (Negative) mg/dL Urine Ketones (Negative) mg/dL Ur Blood (Man) (Negative) Urine Nitrate (Negative) Urine Bilirubin (Negative) Urine Urobilinogen (<2.0) mg/dL Add Ur Microanalysis Leukocyte Esterase Rfl (Negative) BENJAMIN/UL Urine RBC (0-2) /hpf Urine WBC (0-3) /hpf Ur Squamous Epith Cells (Few) /hpf Urine Bacteria /hpf Urine Casts <Annmarie Gong PA-C - Last Filed: 07/30/24 01:50> Lab Results 07/29/24 07/29/24 07/30/24 Range/Units 23:30 23:37 00:30 WBC 5.0 (4.5-10.0) K/mm3 RBC 3.42 L (4.6-6.20) M/mm3 Hgb 10.5 L (14.0-18.0) g/dL Hct 32.6 L (42.0-52.0) % MCV 95.3 (80-100) fl MCH 30.7 (26-34) pg MCHC 32.2 (32-36) g/dl RDW 14.5 (11.5-14.5) % Plt Count 192 (150-375) k/mm3 MPV 11.0 H (7.4-10.4) fl Immature Gran % (Auto) 0.6 H (0-0.5) % Neut % (Auto) 79.6 H (45.5-73.1) % Lymph % (Auto) 10.4 L (18.3-44.2) % Woods % (Auto) 8.4 (2.6-8.5) % Eos % (Auto) 0.6 (0-4.4) % Baso % (Auto) 0.4 (0.2-1.2) % Lymph # (Auto) 0.52 L (0.9-3.2) K/mm3 Woods # (Auto) 0.4 (0.1-0.6) K/mm3 Eos # (Auto) 0.0 (0-0.3) K/mm3 Baso # (Auto) 0.0 (0.0-0.1) K/mm3 Abs Immat Gran (auto) 0.03 (0.00-0.031) K/mm3 Absolute Neuts (auto) 4.0 (1.3-6.7) K/mm3 Absolute Nucleated RBC 0.000 (0.0-0.012) K/mm3 Nucleated RBC % 0.0 (0.0-0.2) % PT 39.1 H (11.1-14.7) Seconds INR 4.0 APTT 46.4 H (22.3-36.8) Seconds Methemoglobin 0.1 (0-1.5) %THb Sodium 124 L (137-145) mmol/L Potassium 5.3 H (3.4-5.0) mmol/L Chloride 89 L (98-107) mmol/L Carbon Dioxide 16 L (22-30) mmol/L Anion Gap 19 H (4-12) mmol/L BUN 70 H (9-20) mg/dL Creatinine 8.70 H (0.7-1.3) mg/dL Estim Creat Clear Calc 12 ml/min Estimated GFR 6 L (59 - ) Glucose 786 H* (65-110) mg/dL POC Capillary Glucose > 500 H* (65-105) mg/dl Hemoglobin A1c (<5.7) % Calcium 8.4 (8.4-10.2) mg/dL Phosphorus 6.4 H (2.5-4.5) mg/dL Magnesium 2.0 (1.6-2.3) mg/dL Total Bilirubin 0.6 (0.2-1.3) mg/dL AST 42 (17-59) U/L ALT 34 (6-50) U/L Alkaline Phosphatase 107 (38-126) U/L Total Protein 6.0 L (6.3-8.2) g/dL Albumin 3.7 (3.5-5.1) g/dL Beta-Hydroxybutyrate/Acetoacetate 2.32 H (0.02-0.27) mmol/L Urine Color Yellow (Yellow) Urine Appearance Cloudy H (Clear) Urine pH 5.0 (5.0-9.0) Ur Specific Esmond 1.025 (1.001-1.035) Urine Protein 2+ H (Negative) mg/dL Urine Glucose (UA) 3+ H (Negative) mg/dL Urine Ketones Trace H (Negative) mg/dL Ur Blood (Man) 3+ H (Negative) Urine Nitrate Negative (Negative) Urine Bilirubin Negative (Negative) Urine Urobilinogen 0.2 (<2.0) mg/dL Add Ur Microanalysis Reviewed Leukocyte Esterase Rfl 1+ H (Negative) BENJAMIN/UL Urine RBC 51-100 H (0-2) /hpf Urine WBC 11-20 H (0-3) /hpf Ur Squamous Epith Cells Occasional (Few) /hpf Urine Bacteria 1+ /hpf Urine Casts 0-2 07/30/24 Range/Units 00:53 WBC (4.5-10.0) K/mm3 RBC (4.6-6.20) M/mm3 Hgb (14.0-18.0) g/dL Hct (42.0-52.0) % MCV (80-100) fl MCH (26-34) pg MCHC (32-36) g/dl RDW (11.5-14.5) % Plt Count (150-375) k/mm3 MPV (7.4-10.4) fl Immature Gran % (Auto) (0-0.5) % Neut % (Auto) (45.5-73.1) % Lymph % (Auto) (18.3-44.2) % Woods % (Auto) (2.6-8.5) % Eos % (Auto) (0-4.4) % Baso % (Auto) (0.2-1.2) % Lymph # (Auto) (0.9-3.2) K/mm3 Woods # (Auto) (0.1-0.6) K/mm3 Eos # (Auto) (0-0.3) K/mm3 Baso # (Auto) (0.0-0.1) K/mm3 Abs Immat Gran (auto) (0.00-0.031) K/mm3 Absolute Neuts (auto) (1.3-6.7) K/mm3 Absolute Nucleated RBC (0.0-0.012) K/mm3 Nucleated RBC % (0.0-0.2) % PT (11.1-14.7) Seconds INR APTT (22.3-36.8) Seconds Methemoglobin (0-1.5) %THb Sodium (137-145) mmol/L Potassium (3.4-5.0) mmol/L Chloride (98-107) mmol/L Carbon Dioxide (22-30) mmol/L Anion Gap (4-12) mmol/L BUN (9-20) mg/dL Creatinine (0.7-1.3) mg/dL Estim Creat Clear Calc ml/min Estimated GFR (59 - ) Glucose (65-110) mg/dL POC Capillary Glucose (65-105) mg/dl Hemoglobin A1c 8.7 H (<5.7) % Calcium (8.4-10.2) mg/dL Phosphorus (2.5-4.5) mg/dL Magnesium (1.6-2.3) mg/dL Total Bilirubin (0.2-1.3) mg/dL AST (17-59) U/L ALT (6-50) U/L Alkaline Phosphatase (38-126) U/L Total Protein (6.3-8.2) g/dL Albumin (3.5-5.1) g/dL Beta-Hydroxybutyrate/Acetoacetate (0.02-0.27) mmol/L Urine Color (Yellow) Urine Appearance (Clear) Urine pH (5.0-9.0) Ur Specific Esmond (1.001-1.035) Urine Protein (Negative) mg/dL Urine Glucose (UA) (Negative) mg/dL Urine Ketones (Negative) mg/dL Ur Blood (Man) (Negative) Urine Nitrate (Negative) Urine Bilirubin (Negative) Urine Urobilinogen (<2.0) mg/dL Add Ur Microanalysis Leukocyte Esterase Rfl (Negative) BENJAMIN/UL Urine RBC (0-2) /hpf Urine WBC (0-3) /hpf Ur Squamous Epith Cells (Few) /hpf Urine Bacteria /hpf Urine Casts <Suzanne Vega MD - Last Filed: 07/30/24 18:06> ABG Data ABG results: 07/30/24 00:30 Puncture Site Right brachial ABG pH 7.356 ABG pCO2 32.0 L ABG pO2 76.8 L ABG PO2/FiO2 Ratio 3.66 ABG HCO3 17.5 L ABG O2 Saturation 95.0 ABG O2 Content 14.1 L ABG Base Excess -7.1 A-a Gradient 34.6 Oxyhemoglobin 92.9 Carboxyhemoglobin 1.1 Reduced Hemoglobin 5.9 H Total Hemoglobin 10.7 L O2 Delivery Device Room air O2 Liters/Min Not Reportable FiO2 21 <Annmarie Gong PA-C - Last Filed: 07/30/24 01:50> 07/30/24 00:30 Puncture Site Right brachial ABG pH 7.356 ABG pCO2 32.0 L ABG pO2 76.8 L ABG PO2/FiO2 Ratio 3.66 ABG HCO3 17.5 L ABG O2 Saturation 95.0 ABG O2 Content 14.1 L ABG Base Excess -7.1 A-a Gradient 34.6 Oxyhemoglobin 92.9 Carboxyhemoglobin 1.1 Reduced Hemoglobin 5.9 H Total Hemoglobin 10.7 L O2 Delivery Device Room air O2 Liters/Min Not Reportable FiO2 21 <Suzanne Vega MD - Last Filed: 07/30/24 18:06> Attestation: I personally reviewed and interpreted this ABG as follows: <Annmarie Gong PA-C - Last Filed: 07/30/24 01:50> Discharge Plan Discharge Clinical Impression: Hyperkalemia, ESRD on peritoneal dialysis DKA (diabetic ketoacidosis) Qualifiers: Diabetes mellitus type: type 1 Diabetes mellitus complication detail: without coma Qualified Code(s): E10.10 - Type 1 diabetes mellitus with ketoacidosis without coma <ALISIA Shaw Last Filed: 07/30/24 01:50> Patient Disposition: Still a Patient <ALISIA Shaw Last Filed: 07/30/24 01:50> Condition: Serious <ALISIA Shaw Last Filed: 07/30/24 01:50>
[2024-07-30] MEDS: SODIUM CHLORIDE 0.9% IV 1,000 ML 999 ML IV CONT (01:42)
[2024-07-30] MEDS: INSULIN HUMAN REGULAR (*BKC) 100 UNITS in SODIUM CHLORIDE 0.9% IV 99 ML 12.1 UNITS IV CONT (01:43)
[2024-07-30] MEDS: INSULIN HUMAN REGULAR (*BKC) 100 UNITS/ML 6 UNITS IV PUSH (01:44)
[2024-07-30 02:08] LABS: Partial Thromboplastin Time 46.4 Seconds (22.3-36.8); Prothrombin Time 39.1 Seconds (11.1-14.7)
[2024-07-30 06:32] LABS: Glucose Point of Care > 500 mg/dl (65-105)
[2024-07-30 06:32] LABS: Glucose Point of Care 238 mg/dl (65-105)
[2024-07-30 06:32] LABS: Glucose Point of Care 440 mg/dl (65-105)
[2024-07-30 06:32] LABS: Glucose Point of Care 150 mg/dl (65-105)
[2024-07-30 06:32] LABS: Glucose Point of Care 285 mg/dl (65-105)
[2024-07-30 07:09] LABS: Glucose Point of Care > 500 mg/dl (65-105)
[2024-07-30 07:17] LABS: Glucose Point of Care 102 mg/dl (65-105)
[2024-07-30] MEDS: KCL 20 MEQ/D5/0.45% SOD CHL 1,000 ML 150 ML IV CONT ×2 (07:20→18:07)
[2024-07-30] MEDS: ACETAMINOPHEN 325 MG TABLET 650 MG PO (08:02)
[2024-07-30 08:17] LABS: Glucose Point of Care 95 mg/dl (65-105)
[2024-07-30 09:26] LABS: Glucose Point of Care 108 mg/dl (65-105)
[2024-07-30 09:28] LABS: Anion Gap 12 mmol/L (4-12); Blood Urea Nitrogen 77 mg/dL (9-20); Calcium 8.6 mg/dL (8.4-10.2); Carbon Dioxide 23 mmol/L (22-30); Chloride 95 mmol/L (98-107); Estimated CRCL calculation 12 ml/min; Estimated Glomerular Filt Rate 6; Glucose 95 mg/dL (65-110); Potassium 4.1 mmol/L (3.4-5.0); Sodium 130 mmol/L (137-145)
--- NOTE | 2024-07-30 09:54 | PC.NURSE ---
Voicemail left for Dr Lizarraga about patient's most recent labs
[2024-07-30 10:17] LABS: Glucose Point of Care 112 mg/dl (65-105)
[2024-07-30 10:24] LABS: Hemoglobin A1C 8.7 % (<5.7)
[2024-07-30 10:25] LABS: Anion Gap 15 mmol/L (4-12); Blood Urea Nitrogen 73 mg/dL (9-20); Calcium 8.5 mg/dL (8.4-10.2); Carbon Dioxide 19 mmol/L (22-30); Chloride 94 mmol/L (98-107); Estimated CRCL calculation 12 ml/min; Estimated Glomerular Filt Rate 6; Glucose 273 mg/dL (65-110); Potassium 3.9 mmol/L (3.4-5.0); Sodium 128 mmol/L (137-145)
--- NOTE | 2024-07-30 10:27 | PC.NURSE ---
Per Dr Lizarraga, continue insulin drip at 1 unit an hour until he comes to round on patient
[2024-07-30 10:51] LABS: Basophils Absolute Auto 0.1 K/mm3 (0.0-0.1); Basophils Percent Auto 0.8 % (0.2-1.2); Eosinophils Absolute Auto 0.2 K/mm3 (0-0.3); Eosinophils Percent Auto 3.2 % (0-4.4); Hematocrit 29.7 % (42.0-52.0); Hemoglobin 9.6 g/dL (14.0-18.0); Immature Granulocyte Absolute 0.02 K/mm3 (0.00-0.031); Immature Granulocyte Percent A 0.3 % (0-0.5); Lymphocytes Percent Auto 24.1 % (18.3-44.2); Mean Corpuscular HGB Conc 32.3 g/dl (32-36); Mean Corpuscular Hemoglobin 29.9 pg (26-34); Mean Corpuscular Volume 92.5 fl (80-100); Mean Platelet Volume 10.6 fl (7.4-10.4); Monocytes Absolute Auto 1.1 K/mm3 (0.1-0.6); Monocytes Percent Auto 15.8 % (2.6-8.5); Neutrophils Absolute Auto 3.7 K/mm3 (1.3-6.7); Neutrophils Percent Auto 55.8 % (45.5-73.1); Platelet Count Result 212 k/mm3 (150-375); Red Blood Count 3.21 M/mm3 (4.6-6.20); Red Cell Distribution Width 14.1 % (11.5-14.5); White Blood Count 6.6 K/mm3 (4.5-10.0)
[2024-07-30 11:05] LABS: Alanine Aminotransferase 30 U/L (6-50); Albumin Level 3.4 g/dL (3.5-5.1); Alkaline Phosphatase 81 U/L (38-126); Anion Gap 13 mmol/L (4-12); Aspartate Amino Transferase 37 U/L (17-59); Bilirubin,Total 0.5 mg/dL (0.2-1.3); Blood Urea Nitrogen 77 mg/dL (9-20); Calcium 8.5 mg/dL (8.4-10.2); Carbon Dioxide 22 mmol/L (22-30); Chloride 95 mmol/L (98-107); Estimated CRCL calculation 12 ml/min; Estimated Glomerular Filt Rate 6; Glucose 93 mg/dL (65-110); Magnesium 2.1 mg/dL (1.6-2.3); Potassium 4.1 mmol/L (3.4-5.0); Sodium 130 mmol/L (137-145)
[2024-07-30 11:29] LABS: Glucose Point of Care 104 mg/dl (65-105)
--- NOTE | 2024-07-30 12:04 | PC.NURSE ---
Per MD Lizarraga at bedside, pt is to eat now. Pt. given food. Administer Lantus. Keep insulin drip infusing at 1 unit/hr after Lantus administration and then stop insulin drip.
--- NOTE | 2024-07-30 12:17 | PC.NURSE ---
This RN took report for patient at 0700 this morning. Insulin drip was titrated at 1 Unit an hour prior to my arrival. See paper charting for details
[2024-07-30] MEDS: INSULIN GLARGINE (*BKC) 100 UNITS/ML 10 UNITS SUB-Q ×2 (12:18→21:19)
[2024-07-30 12:24] LABS: Glucose Point of Care 87 mg/dl (65-105)
[2024-07-30 13:21] LABS: Glucose Point of Care 171 mg/dl (65-105)
[2024-07-30] MEDS: INSULIN ASPART (*BKC) 100 UNITS/ML SUB-Q ×2 (13:39→18:06)
--- NOTE | 2024-07-30 13:40 | PC.NURSE ---
Meal tray present at time of aspart administration.
[2024-07-30 14:03] LABS: Anion Gap 11 mmol/L (4-12); Blood Urea Nitrogen 74 mg/dL (9-20); Calcium 8.4 mg/dL (8.4-10.2); Carbon Dioxide 21 mmol/L (22-30); Chloride 96 mmol/L (98-107); Estimated CRCL calculation 11 ml/min; Estimated Glomerular Filt Rate 6; Glucose 184 mg/dL (65-110); Potassium 4.1 mmol/L (3.4-5.0); Sodium 128 mmol/L (137-145)
[2024-07-30 14:27] LABS: Glucose Point of Care 224 mg/dl (65-105)
[2024-07-30 17:03] LABS: Glucose Point of Care 332 mg/dl (65-105)
--- NOTE | 2024-07-30 17:19 | ADMGEN ---
This patient, Juvenal Daigle Jr., was admitted to Medical Room 346-01. Patient/family oriented to hospital policies and general routines including ID bracelet, bed and alarms, visiting hours, pain management, procedures, bathroom and other care routines, personal items, smoking policy, room service/diet, and visiting hours. Information on how to activate the Rapid Response Team has been discussed. Patient/Family are encouraged to report perceived risks to care and to ask questions if they do not understand what they are told or what they should do.
[2024-07-30 18:00] LABS: Anion Gap 11 mmol/L (4-12); Blood Urea Nitrogen 77 mg/dL (9-20); Calcium 8.2 mg/dL (8.4-10.2); Carbon Dioxide 21 mmol/L (22-30); Chloride 94 mmol/L (98-107); Estimated CRCL calculation 12 ml/min; Estimated Glomerular Filt Rate 6; Glucose 338 mg/dL (65-110); Potassium 4.6 mmol/L (3.4-5.0); Sodium 126 mmol/L (137-145)
--- NOTE | 2024-07-30 18:16 | PM.IMHP ---
H&P: HPI History of Present Illness Date/Time: 07/30/24 18:16 Chief Complaint: elevated blood sugar. Narrative: 53-year-old male type 1 diabetes, end-stage renal disease on peritoneal dialysis awaiting transplant at [facility], CHF, hypertension, coronary artery disease status post CABG and aortic valve replacement presented to the ER on account of elevated blood sugar. Patient reported that he wears a insulin pump and yesterday he went for his transplant evaluation at [facility] noted he wore his pump dropped yesterday however when he got home he noticed his blood sugar was severely elevated prompting him to present to the ER for proper evaluation and care. Patient denies noncompliance with insulin pump no chest pain no shortness of bread no fever no runny nose no diarrhea no abdominal pain no dysuria. ER evaluation notable for emergency room pulse rate 109, respiratory rate 17 blood pressure 120/69, saturating 100% on room air. Labs notable for hemoglobin 9.6 sodium 26, creatinine 8.8, BUN 77 blood glucose 786, serum ketones 2.32. Patient was started fluids and insulin infusion per DKA protocol. Gap closing the ER presentation does patient was admitted to medical floor. He was a incision and to subacute regimen. Review of Systems Review of Systems: All other systems reviewed and negative except as noted in HPI above. [facility] Past Medical History Medical History Anemia in chronic kidney disease Anxiety Arthritis Chronic anticoagulation Congestive heart failure Echocardiogram May 2017 EF of 50% with hypokinetic apical, inferior and basal inferior lateral segment, mild enlargement of left atrium. Coronary artery disease History of several stents including complex procedure at [facility]/ stenting of a heavily calcified CX on OM using shockwave treatment. Deep venous thrombosis Chronic right popliteal DVT. Diabetic peripheral neuropathy Diabetic retinopathy End-stage renal disease on peritoneal dialysis Essential hypertension Gastroesophageal reflux disease Gout Hyperlipidemia Insulin dependent diabetes mellitus Obstructive sleep apnea With inconsistent CPAP use. Paroxysmal atrial fibrillation Renal osteodystrophy Right hand dominant Secondary hyperparathyroidism of renal origin Seizure X1 with etiology unknown Type 1 diabetes mellitus Onset around age 13. Surgical History Surgical History History of anterior cruciate ligament surgery (2000) Left knee History of appendectomy (2006) History of arthroscopy of left knee History of bilateral carpal tunnel release Right 05/03/2018. Left 06/02/2018. History of cardiac catheterization 01/21/2021 catheterization at [facility], Dr. Hoover done: Little change from prior catheterization. Patent stents in the RCA and PDA. Previously jailed posterolateral is occluded and development of a 50% stenosis of a branch of om 1. Normal LV function. :August 2019 demonstrated patent stents with 40% stenosis of 1 vessel with no stents or angioplasty performed per patient report. :November 2018 at [facility] - stent x3. :March 2017 demonstrating mild diffuse coronary disease 80% lesion small sub branch of obtuse marginal 1 and 90% stenosis distal RCA into the origin of the PDA with PTCA and stent to the RPDA/distal RCA performed by Dr. Petit. History of cataract extraction With lens implant History of coronary angioplasty with insertion of stent Drug-eluting stents for high-grade OM 99% occlusion 05/2022. History of hernia repair History of open reduction and internal fixation (ORIF) procedure (1982) Left lower extremity fracture. And the right hip pinning when he was in the 8th grade Peritoneal dialysis catheter in place S/P triple vessel bypass Sep 2023; [facility] Family History Family History Father , in his late 60s Acute myocardial infarction Premature coronary artery disease; <65yo CHF (congestive heart failure) Dementia Hypertension S/P triple vessel bypass 1980s Mother Lung cancer Hypertension Daughter Celiac disease Social History Social History Social History: Surrogate medical decision maker: Hodan Daigle (daughter) or Lorne Daigle (brother). Code status: Full code. Smoking status: Never smoker Second hand tobacco smoke exposure: No Alcohol intake: never Substance use: never Substance use type: does not use Do You Feel Safe in your Home?: Yes Lack of Transportation: YES Lack of Food: Sometimes True Current Housing: I Have Housing Concerned About Future Housing: No Difficulty Paying Gas/Electric Bills: No Difficulty Paying for Meds: YES Currently Unemployed: No Education: High School Diploma/GED Difficulty w/ Childcare or Family Care: No Living arrangements: alone Additional living arrangements comments: He is single and has 3 children. 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 Spiritual care concerns: No Agree to blood products: Yes Meds Home Medications and Allergies Home Medications ?Medication ?Instructions ?Recorded ?Confirmed ?Type calcitriol 0.25 mcg capsule 0.25 mcg PO QAM 06/04/19 07/30/24 History ergocalciferol (vitamin D2) 1,250 50,000 unit PO WEEKLY 06/04/19 07/30/24 History mcg (50,000 unit) capsule (Vitamin D2) nitroglycerin 0.4 mg sublingual 0.4 mg sublingual Q5-15M PRN Chest 06/04/19 07/30/24 History tablet Pain ezetimibe 10 mg tablet (Zetia) 10 mg PO DAILY 09/09/19 07/30/24 History cetirizine 10 mg tablet (All Day 10 mg PO DAILY 12/26/19 07/30/24 History Allergy (cetirizine)) atorvastatin 80 mg tablet 80 mg PO DAILY 11/26/20 07/30/24 History albuterol sulfate 90 mcg/actuation 1 inh inhalation QID PRN shortness 01/12/23 07/30/24 Rx aerosol inhaler (ProAir HFA) of breath or wheezing #8.5 grams metoprolol succinate 50 mg 25 mg PO HS 05/20/23 07/30/24 History tablet,extended release 24 hr potassium chloride 20 mEq 20 meq PO DAILY PRN Cramps 05/20/23 07/30/24 History tablet,extended release febuxostat 40 mg tablet 40 mg PO QPM 07/25/23 07/30/24 History gemfibrozil 600 mg tablet 600 mg PO Q12H 07/25/23 07/30/24 History linaclotide 72 mcg capsule 72 mcg PO DAILY PRN Diarrhea 07/25/23 07/30/24 History (Linzess) icosapent ethyl 1 gram capsule 1 g PO Q12H 02/16/24 07/30/24 History (Vascepa) torsemide 100 mg tablet 100 mg PO DAILY 02/16/24 07/30/24 History warfarin 3 mg tablet 3 mg PO DAILY #30 tabs 03/01/24 07/30/24 Rx insulin NPH isoph U-100 human 100 10 unit (0.1 mL) subcut DAILY PRN 05/16/24 07/30/24 Rx unit/mL (3 mL) subcutaneous pen if insulin pump malfunction; (Humulin N NPH U-100 Insulin before dialysis #15 mL KwikPen) insulin lispro 100 unit/mL 100 unit continuous subcutaneous 05/16/24 07/30/24 Rx subcutaneous solution (Humalog infusion DAILY #100 mL U-100 Insulin) insulin pump cart,automated,BT #45 ea 05/16/24 07/30/24 Rx (Omnipod 5 G6 Pods (Gen 5) subcutaneous cartridge) levothyroxine 25 mcg tablet 25 mcg PO DAILY #90 tabs 05/16/24 07/30/24 Rx moxifloxacin 0.5 % eye drops 1 drp LEFT EYE QID 05/27/24 07/30/24 History omeprazole 20 mg capsule,delayed 20 mg PO DAILY 06/06/24 07/30/24 History release pen needle, diabetic 32 gauge x #100 ea 07/10/24 07/30/24 Rx /32 (BD Lucrecia 2nd Gen Pen Needle) cephalexin 500 mg capsule 500 mg PO Q12H #14 caps 07/12/24 07/30/24 Rx amlodipine 10 mg tablet 10 mg PO HS 07/30/24 07/30/24 History calcium acetate(phosphat bind) 667 667 mg PO QID 07/30/24 07/30/24 History mg capsule erythromycin 5 mg/gram (0.5 %) eye 1 applic EACH EYE HS 07/30/24 07/30/24 History ointment glucagon 1 mg/0.2 mL subcutaneous See Rx Instructions .Route 07/30/24 07/30/24 History auto-injector (Gvoke HypoPen .COMPLEX PRN Hypoglycemia 2-Pack) warfarin 3 mg tablet 1.5 mg PO WEEKLY 07/30/24 07/30/24 History Allergies Allergy/AdvReac Type Severity Reaction Status Date / Time allopurinol Allergy Severe Other Verified 07/30/24 14:28 iodine Allergy Severe Rash Verified 07/30/24 14:28 iohexol (From CONTRAST - CT, Allergy Severe Difficulty Verified 07/30/24 14:28 XRAY) Breathing ticagrelor Allergy Intermediate Rash Verified 07/30/24 14:28 Vital Signs Vital Signs - 24 hr 07/29/24 23:28 07/30/24 07:14 07/30/24 08:02 Temperature 97 F L 98 F Pulse Rate 102 H 112 H Respiratory Rate 20 14 Blood Pressure 132/83 125/74 Pulse Oximetry 98 95 07/30/24 10:23 07/30/24 12:06 07/30/24 16:20 Temperature 97.4 F L Pulse Rate 109 H 110 H 109 H Respiratory Rate 20 16 17 Blood Pressure 112/94 H 122/62 120/69 Pulse Oximetry 95 95 100 Exam Narrative: General: alert and comfortable Eyes: EOMI, PERRLA ENNT External ears normal, Neck is supple, no masses, Respiratory systems: Clear to auscultation Cardiovascular S1, S2, normal rhythm, no murmur, rub, or gallop; no thrill or palpable murmurs on palpation. Gastrointestinal: soft, non-tender, and non-distended abdomen with no masses; BS present Skin: no rash, lesions, ulcerations, subcutaneous nodules or induration Musculoskeletal: no abnormality and no tenderness, normal ROM Neurologic: Alert and oriented x3, non focal Mental Status Exam: normal affect H&P: Results Labs Labs: Short CBC 07/29/24 07/30/24 Range/Units 23:37 10:38 WBC 5.0 6.6 (4.5-10.0) K/mm3 Hgb 10.5 L 9.6 L (14.0-18.0) g/dL Hct 32.6 L 29.7 L (42.0-52.0) % Plt Count 192 212 (150-375) k/mm3 [facility] 07/29/24 07/30/24 07/30/24 23:37 05:00 08:56 Sodium 124 L 128 L 130 L Potassium 5.3 H 3.9 4.1 Chloride 89 L 94 L 95 L Carbon Dioxide 16 L 19 L 22 BUN 70 H 73 H 77 H Creatinine 8.70 H 8.70 H 8.60 H Glucose 786 H* 273 H 93 Calcium 8.4 8.5 8.5 07/30/24 07/30/24 07/30/24 08:57 13:39 17:14 Sodium 130 L 128 L 126 L Potassium 4.1 4.1 4.6 Chloride 95 L 96 L 94 L Carbon Dioxide 23 21 L 21 L BUN 77 H 74 H 77 H Creatinine 8.70 H 8.90 H 8.80 H Glucose 95 184 H 338 H Calcium 8.6 8.4 8.2 L Liver Function 07/29/24 07/30/24 Range/Units 23:37 08:56 Total Bilirubin 0.6 0.5 (0.2-1.3) mg/dL AST 42 37 (17-59) U/L ALT 34 30 (6-50) U/L Alkaline Phosphatase 107 81 (38-126) U/L Albumin 3.7 3.4 L (3.5-5.1) g/dL Urine 07/29/24 Range/Units 23:37 Urine Color Yellow (Yellow) Urine Appearance Cloudy H (Clear) Urine pH 5.0 (5.0-9.0) Ur Specific [place] 1.025 (1.001-1.035) Urine Protein 2+ H (Negative) mg/dL Urine Glucose (UA) 3+ H (Negative) mg/dL Assessment and Plan Assessment and plan (1) DKA (diabetic ketoacidosis): Qualifiers: Diabetes mellitus complication detail: without coma Diabetes mellitus type: type 1 Qualified Code(s): E10.10 - Type 1 diabetes mellitus with ketoacidosis without coma Code(s): E11.10 - Type 2 diabetes mellitus with ketoacidosis without coma Status: Acute (2) ESRD on peritoneal dialysis: Code(s): N18.6 - End stage renal disease; Z99.2 - Dependence on renal dialysis Status: Acute Plan DKA, resolved type 1 diabetes Patient normally on insulin pump present status post IVF and insulin infusion per DKA protocol Pending on subQ regimen, Lantus 10 units pre meals 5 units , On sliding scale insulin with Accu-Cheks. End-stage renal disease on peritoneal dialysis Undergoing transplant evaluation [facility] Urine Nephrology consulted ongoing dialysis. CHF Continue dialysis Hypertension titrate medications to need Coronary artery disease status post CABG 2 placement Continue home medication. Patient is on warfarin, INR is for, pharmacy to continue his warfarin. DVT prophylaxis patient is on warfarin and is supratherapeutic. Patient is full code Surrogate decision maker is daughter [facility] Advance Care Plan I have confirmed that the patient's Advanced Care Plan is present, code status is documented, or surrogate decision maker is listed in patient medical record.: Yes Medication Reconciliation I have utilized all available resources to obtain, update and review the patients current medications (includes all prescriptions, OTC, herbals, cannabis, and nutritional supplements).: Yes
[2024-07-30] MEDS: SODIUM CHLORIDE 0.9% IV 250 ML 999 ML IV CONT (18:51)
[2024-07-30 20:43] LABS: Glucose Point of Care > 500 mg/dl (65-105)
[2024-07-30 20:43] LABS: Glucose Point of Care > 500 mg/dl (65-105)
[2024-07-30] MEDS: OMEGA 3 POLYUNSAT FATTY ACIDS 1 GM CAP PO (20:45)
[2024-07-30 21:13] LABS: MRSA (PCR) NOT DETECTED (NOT DETECTE)
[2024-07-30] MEDS: INSULIN ASPART (*BKC) 100 UNITS/ML 12 UNITS SUB-Q (21:19)
[2024-07-30 21:48] LABS: Anion Gap 10 mmol/L (4-12); Blood Urea Nitrogen 72 mg/dL (9-20); Calcium 8.1 mg/dL (8.4-10.2); Carbon Dioxide 20 mmol/L (22-30); Chloride 93 mmol/L (98-107); Estimated CRCL calculation 12 ml/min; Estimated Glomerular Filt Rate 7; Glucose 672 mg/dL (65-110); Potassium 4.9 mmol/L (3.4-5.0); Sodium 123 mmol/L (137-145)
[2024-07-30] MEDS: SODIUM CHLORIDE 0.9% IV 1000 ML BAG IV CONT (21:59)
[2024-07-30 23:23] LABS: Iron 119 ug/dL (49-181)
[2024-07-30 23:33] LABS: Percent Iron Saturation 51 % (20-50)
[2024-07-30 23:38] LABS: Glucose Point of Care > 500 mg/dl (65-105)
[2024-07-30 23:38] LABS: Glucose Point of Care > 500 mg/dl (65-105)
[2024-07-30] MEDS: INSULIN ASPART (*BKC) 100 UNITS/ML 20 UNITS SUB-Q (23:41)
[2024-07-31 02:49] LABS: Glucose Point of Care 352 mg/dl (65-105)
[2024-07-31] MEDS: IMIPRAMINE HCL 25 MG TABLET 75 MG PO (03:29)
[2024-07-31] MEDS: INSULIN ASPART (*BKC) 100 UNITS/ML 8 UNITS SUB-Q (03:30)
[2024-07-31 05:20] VITALS: BP 119/81; PULSE 112; RESP 18; TEMP 36.2; O2SAT 98
[2024-07-31] MEDS: LEVOTHYROXINE SODIUM 25 MCG TABLET PO (05:39)
[2024-07-31 06:20] LABS: Basophils Percent Auto 0.9 % (0.2-1.2); Eosinophils Absolute Auto 0.2 K/mm3 (0-0.3); Eosinophils Percent Auto 3.8 % (0-4.4); Hematocrit 31.9 % (42.0-52.0); Hemoglobin 10.3 g/dL (14.0-18.0); Immature Granulocyte Absolute 0.02 K/mm3 (0.00-0.031); Immature Granulocyte Percent A 0.4 % (0-0.5); Lymphocytes Absolute Auto 1.12 K/mm3 (0.9-3.2); Lymphocytes Percent Auto 23.8 % (18.3-44.2); Mean Corpuscular HGB Conc 32.3 g/dl (32-36); Mean Platelet Volume 10.6 fl (7.4-10.4); Monocytes Absolute Auto 0.6 K/mm3 (0.1-0.6); Monocytes Percent Auto 13.6 % (2.6-8.5); Neutrophils Absolute Auto 2.7 K/mm3 (1.3-6.7); Neutrophils Percent Auto 57.5 % (45.5-73.1); Platelet Count Result 192 k/mm3 (150-375); Red Blood Count 3.43 M/mm3 (4.6-6.20); Red Cell Distribution Width 14.2 % (11.5-14.5); White Blood Count 4.7 K/mm3 (4.5-10.0)
[2024-07-31 06:30] LABS: Prothrombin Time 50.9 Seconds (11.1-14.7)
[2024-07-31 06:32] LABS: INR 5.6
[2024-07-31 06:33] LABS: Alanine Aminotransferase 34 U/L (6-50); Albumin Level 3.6 g/dL (3.5-5.1); Alkaline Phosphatase 82 U/L (38-126); Anion Gap 12 mmol/L (4-12); Aspartate Amino Transferase 39 U/L (17-59); Bilirubin,Total 0.4 mg/dL (0.2-1.3); Blood Urea Nitrogen 69 mg/dL (9-20); Calcium 8.7 mg/dL (8.4-10.2); Carbon Dioxide 20 mmol/L (22-30); Chloride 98 mmol/L (98-107); Estimated CRCL calculation 12 ml/min; Estimated Glomerular Filt Rate 6; Glucose 175 mg/dL (65-110); Magnesium 2.1 mg/dL (1.6-2.3); Potassium 4.2 mmol/L (3.4-5.0); Sodium 130 mmol/L (137-145)
[2024-07-31 08:14] LABS: Glucose Point of Care 80 mg/dl (65-105)
[2024-07-31] MEDS: OMEGA 3 POLYUNSAT FATTY ACIDS 1 GM CAP PO ×2 (09:08→20:22)
[2024-07-31] MEDS: EZETIMIBE 10 MG TABLET PO (09:08)
[2024-07-31] MEDS: ATORVASTATIN 40 MG TABLET 80 MG PO (09:08)
[2024-07-31 11:56] LABS: Glucose Point of Care 180 mg/dl (65-105)
--- NOTE | 2024-07-31 12:07 | P.PNIM_ITS ---
Progress Note: A&P Assessment and Plan (1) DKA (diabetic ketoacidosis): Qualifiers: Diabetes mellitus complication detail: without coma Diabetes mellitus type: type 1 Qualified Code(s): E10.10 - Type 1 diabetes mellitus with ketoacidosis without coma Code(s): E11.10 - Type 2 diabetes mellitus with ketoacidosis without coma Status: Acute (2) ESRD on peritoneal dialysis: Code(s): N18.6 - End stage renal disease; Z99.2 - Dependence on renal dialysis Status: Acute Plan DKA, resolved type 1 diabetes Patient normally on insulin pump present status post IVF and insulin infusion per DKA protocol Blood sugar labile overnight Pending on subQ regimen, Lantus 10 units pre meals 5 units , On sliding scale insulin with Accu-Cheks. monitor End-stage renal disease on peritoneal dialysis Undergoing transplant evaluation [facility] Urine Nephrology consulted ongoing dialysis. CHF Continue dialysis Hypertension titrate medications to need Coronary artery disease status post CABG 2 placement Continue home medication. Patient is on warfarin, INR is for, pharmacy to continue his warfarin. Supratherapeutic INR INR 5.6 this morning monitor Warfarin on hold DVT prophylaxis wrfarin on hold and is supratherapeutic. Patient is full code Surrogate decision maker is nicole Foley Subjective Date/time seen: 07/31/24 12:07 Interval history: Patient comfortable at bedside however blood sugar were elevated and then 80 this morning will monitor one more day and see how blood sugar stays. Review of Systems Review of Systems: All other systems reviewed and negative except as noted in HPI above. Exam Narrative: General: alert and comfortable Eyes: EOMI, PERRLA ENNT External ears normal, Neck is supple, no masses, Respiratory systems: Clear to auscultation Cardiovascular S1, S2, normal rhythm, no murmur, rub, or gallop; no thrill or palpable murmurs on palpation. Gastrointestinal: soft, non-tender, and non-distended abdomen with no masses; BS present Skin: no rash, lesions, ulcerations, subcutaneous nodules or induration Musculoskeletal: no abnormality and no tenderness, normal ROM Neurologic: Alert and oriented x3, non focal Mental Status Exam: normal affect Objective Data Vital Signs Vital Signs: Vital Signs - 24 hr 07/30/24 16:20 07/30/24 18:15 07/30/24 20:00 Temperature 97.4 F L Pulse Rate 109 H Respiratory Rate 17 Blood Pressure 120/69 Pulse Oximetry 100 Oxygen Delivery Room Air Room Air 07/30/24 20:00 07/30/24 21:24 07/31/24 05:20 Temperature 97.9 F 97.2 F L Pulse Rate 105 H 106 H 112 H Respiratory Rate 16 18 Blood Pressure 131/81 119/81 Pulse Oximetry 97 98 Oxygen Delivery 07/31/24 08:00 Temperature Pulse Rate Respiratory Rate Blood Pressure Pulse Oximetry Oxygen Delivery Room Air Intake/Output Intake/Output: Intake & Output 07/28/24 07/29/24 07/30/24 07/31/24 23:59 23:59 23:59 23:59 Intake Total 3211.4 470 Balance 3211.4 470 Meds/Results Medications: Active Medications Generic Name Dose Route Start Last Admin Trade Name Freq PRN Reason Stop Dose Admin Acetaminophen 650 mg 07/30/24 07:51 07/30/24 08:02 Acetaminophen 325 Mg Tablet PO 650 mg Q6H PRN Administration Mild Pain (1-3) or Fever Atorvastatin Calcium 80 mg 07/31/24 09:00 07/31/24 09:08 Atorvastatin 40 Mg Tablet PO 80 mg DAILY ASHLEY Administration Dextrose 12.5 gm 07/30/24 18:34 Dextrose 50% 25 Gm/50 Ml Syringe IV PUSH PRN PRN Hypoglycemia Protocol Ezetimibe 10 mg 07/31/24 09:00 07/31/24 09:08 Ezetimibe 10 Mg Tablet PO 10 mg DAILY ASHLEY Administration Fish Oil 1 gm 07/30/24 21:00 07/31/24 09:08 [place] 3 Polyunsat Fatty Acids 1 Gm Cap PO 1 gm Q12H ASHLEY Administration Glucagon 1 mg 07/30/24 18:34 Glucagon For Inj 1 Mg Vial IM PRN PRN Hypoglycemia Protocol Glucose 15 gm 07/30/24 18:34 Glucose Oral Gel 15 Gm Of Glucse In 37.5 Gm Tube PO PRN PRN Hypoglycemia Protocol Dextrose 1,000 mls @ 100 mls/hr 07/30/24 18:34 Dextrose 5% 1,000 Ml IVPB PRN PRN Hypoglycemia Protocol Insulin Aspart 5 units 07/30/24 12:00 07/31/24 11:28 Insulin Aspart (*Bkc) 100 Units/Ml SUB-Q Not Given TIDWM [facility] Insulin Glargine 10 units 07/30/24 21:00 07/30/24 21:19 Insulin Glargine (*Bkc) 100 Units/Ml SUB-Q 10 units HS [facility] Administration Levothyroxine Sodium 25 mcg 07/31/24 06:30 07/31/24 05:39 Levothyroxine Sodium 25 Mcg Tablet PO 25 mcg DAILY@0630 [facility] Administration Linaclotide 72 mcg 07/30/24 18:21 Linaclotide 72 Mcg Capsule PO DAILY PRN Diarrhea Ondansetron HCl 4 mg 07/30/24 01:37 Ondansetron Inj 4 Mg/2 Ml Vial IV PUSH Q4H PRN Nausea Warfarin Sodium 1.5 mg 08/02/24 17:00 Warfarin (*Pbkc) 1.5 Mg Tablet PO Fr@1700 [facility] Warfarin Sodium 3 mg 07/31/24 17:00 Warfarin (*Pbkc) 3 Mg Tablet PO SuMoTuWeThSa@1700 [facility] Labs Labs: Laboratory Results - last 24 hr 07/30/24 07/30/24 07/30/24 12:18 13:19 13:39 WBC RBC Hgb Hct MCV MCH MCHC RDW Plt Count MPV Immature Gran % (Auto) Neut % (Auto) Lymph % (Auto) [place] % (Auto) Eos % (Auto) Baso % (Auto) Lymph # (Auto) [place] # (Auto) Eos # (Auto) Baso # (Auto) Abs Immat Gran (auto) Absolute Neuts (auto) Absolute Nucleated RBC Nucleated RBC % PT INR Sodium 128 L Potassium 4.1 Chloride 96 L Carbon Dioxide 21 L Anion Gap 11 BUN 74 H Creatinine 8.90 H Estim Creat Clear Calc 11 Estimated GFR 6 L Glucose 184 H POC Capillary Glucose 87 171 H Calcium 8.4 Magnesium Iron TIBC % Saturation Ferritin Total Bilirubin AST ALT Alkaline Phosphatase Total Protein Albumin Nasal MRSA (PCR) 07/30/24 07/30/24 07/30/24 14:23 16:59 17:14 WBC RBC Hgb Hct MCV MCH MCHC RDW Plt Count MPV Immature Gran % (Auto) Neut % (Auto) Lymph % (Auto) [place] % (Auto) Eos % (Auto) Baso % (Auto) Lymph # (Auto) [place] # (Auto) Eos # (Auto) Baso # (Auto) Abs Immat Gran (auto) Absolute Neuts (auto) Absolute Nucleated RBC Nucleated RBC % PT INR Sodium 126 L Potassium 4.6 Chloride 94 L Carbon Dioxide 21 L Anion Gap 11 BUN 77 H Creatinine 8.80 H Estim Creat Clear Calc 12 Estimated GFR 6 L Glucose 338 H POC Capillary Glucose 224 H 332 H Calcium 8.2 L Magnesium Iron TIBC % Saturation Ferritin Total Bilirubin AST ALT Alkaline Phosphatase Total Protein Albumin Nasal MRSA (PCR) 07/30/24 07/30/24 07/30/24 18:23 20:35 20:38 WBC RBC Hgb Hct MCV MCH MCHC RDW Plt Count MPV Immature Gran % (Auto) Neut % (Auto) Lymph % (Auto) [place] % (Auto) Eos % (Auto) Baso % (Auto) Lymph # (Auto) [place] # (Auto) Eos # (Auto) Baso # (Auto) Abs Immat Gran (auto) Absolute Neuts (auto) Absolute Nucleated RBC Nucleated RBC % PT INR Sodium Potassium Chloride Carbon Dioxide Anion Gap BUN Creatinine Estim Creat Clear Calc Estimated GFR Glucose POC Capillary Glucose > 500 H* > 500 H* Calcium Magnesium Iron TIBC % Saturation Ferritin Total Bilirubin AST ALT Alkaline Phosphatase Total Protein Albumin Nasal MRSA (PCR) Not detected 07/30/24 07/30/24 07/30/24 21:18 21:22 23:04 WBC RBC Hgb Hct MCV MCH MCHC RDW Plt Count MPV Immature Gran % (Auto) Neut % (Auto) Lymph % (Auto) [place] % (Auto) Eos % (Auto) Baso % (Auto) Lymph # (Auto) [place] # (Auto) Eos # (Auto) Baso # (Auto) Abs Immat Gran (auto) Absolute Neuts (auto) Absolute Nucleated RBC Nucleated RBC % PT INR Sodium 123 L Potassium 4.9 Chloride 93 L Carbon Dioxide 20 L Anion Gap 10 BUN 72 H Creatinine 8.50 H Estim Creat Clear Calc 12 Estimated GFR 7 L Glucose 672 H* POC Capillary Glucose > 500 H* > 500 H* Calcium 8.1 L Magnesium Iron 119 TIBC 235 L % Saturation 51 H Ferritin 475.00 H Total Bilirubin AST ALT Alkaline Phosphatase Total Protein Albumin Nasal MRSA (PCR) 07/31/24 07/31/24 07/31/24 02:47 05:54 08:09 WBC 4.7 RBC 3.43 L Hgb 10.3 L Hct 31.9 L MCV 93.0 MCH 30.0 MCHC 32.3 RDW 14.2 Plt Count 192 MPV 10.6 H Immature Gran % (Auto) 0.4 Neut % (Auto) 57.5 Lymph % (Auto) 23.8 [place] % (Auto) 13.6 H Eos % (Auto) 3.8 Baso % (Auto) 0.9 Lymph # (Auto) 1.12 [place] # (Auto) 0.6 Eos # (Auto) 0.2 Baso # (Auto) 0.0 Abs Immat Gran (auto) 0.02 Absolute Neuts (auto) 2.7 Absolute Nucleated RBC 0.000 Nucleated RBC % 0.0 PT 50.9 H D INR 5.6 H* Sodium 130 L Potassium 4.2 Chloride 98 Carbon Dioxide 20 L Anion Gap 12 BUN 69 H Creatinine 8.60 H Estim Creat Clear Calc 12 Estimated GFR 6 L Glucose 175 H POC Capillary Glucose 352 H 80 Calcium 8.7 Magnesium 2.1 Iron TIBC % Saturation Ferritin Total Bilirubin 0.4 AST 39 ALT 34 Alkaline Phosphatase 82 Total Protein 6.0 L Albumin 3.6 Nasal MRSA (PCR) 07/31/24 11:52 WBC RBC Hgb Hct MCV MCH MCHC RDW Plt Count MPV Immature Gran % (Auto) Neut % (Auto) Lymph % (Auto) [place] % (Auto) Eos % (Auto) Baso % (Auto) Lymph # (Auto) [place] # (Auto) Eos # (Auto) Baso # (Auto) Abs Immat Gran (auto) Absolute Neuts (auto) Absolute Nucleated RBC Nucleated RBC % PT INR Sodium Potassium Chloride Carbon Dioxide Anion Gap BUN Creatinine Estim Creat Clear Calc Estimated GFR Glucose POC Capillary Glucose 180 H Calcium Magnesium Iron TIBC % Saturation Ferritin Total Bilirubin AST ALT Alkaline Phosphatase Total Protein Albumin Nasal MRSA (PCR)
[2024-07-31] MEDS: INSULIN ASPART (*BKC) 100 UNITS/ML SUB-Q ×2 (12:40→17:52)
--- NOTE | 2024-07-31 13:07 | P.CONNP_ITS ---
Assessment and Plan Assessment and plan (1) End stage renal disease: Code(s): N18.6 - End stage renal disease Status: Chronic Assessment and Plan: * continue nightly peritoneal dialysis treatments * follow electrolytes, volume status and clearance * primary abrasive grinder = Dr Sharath Reyes * outpatient dialysis unit = [facility] (2) DKA (diabetic ketoacidosis): Qualifiers: Diabetes mellitus complication detail: without coma Diabetes mellitus type: type 1 Qualified Code(s): E10.10 - Type 1 diabetes mellitus with ketoacidosis without coma Code(s): E11.10 - Type 2 diabetes mellitus with ketoacidosis without coma Status: Acute Assessment and Plan: * resolved * treated with IV fluid resuscitation as tolerated due to patient's history of end-stage renal disease and insulin gtt * off insulin gtt * on SQ insulin with plan resume home insulin gtt * follow accu-cheks (3) Anemia: Code(s): D64.9 - Anemia, unspecified Status: Chronic Assessment and Plan: * due to ESRD and acute illness * H/H at goal * CORRINE if Hgb < 10 (4) Hypertension: Code(s): I10 - Essential (primary) hypertension Status: Chronic Assessment and Plan: * reasonable control at this time * resume home medications as needed * follow trend of hemodynamics (5) Obstructive sleep apnea: Code(s): G47.33 - Obstructive sleep apnea (adult) (pediatric) Status: Chronic Assessment and Plan: * continue CPAP use Not oppposed to discharge from renal perspective if otherwise medically stable. Will continue to follow. History of Present Illness Reason for Consult Consult date: 07/31/24 Reason for consult: end stage renal disease Chief Complaint Chief complaint: DKA, ESRD on peritoneal hemodialysis History of Present Illness Narrative: the patient is a 53-year-old male with a past medical history as outlined below who presented to [facility] Emergency Room due to hyperglycemia. The patient normally wears an insulin pump in yesterday when he went for his transplant evaluation at [facility] and saw multiple doctors when he was there. despite having his insulin pump on, his blood sugars were apparently reading high. He gave himself an insulin bolus in the hopes that this would help correct the situation but even when he got home, his blood sugars continue to run severely elevated. He gave himself another bolus of insulin at home but his blood sugars did not seem to improve. This was further complicated by symptoms of nausea and episode of vomiting. He did report that his symptoms seem to improve after the episode of vomiting. As these are symptoms that he has had on his previous episodes of DKA, he presented to the ER for further assessment. It should be noted patient has numerous hospitalizations here at [facility] for DKA. Workup and evaluation emergency room demonstrated the patient be hemodynamically stable and in no acute distress although he was mildly tachycardic. Routine blood tests were significant for relative anemia but otherwise normal CBC and a chemistry that was consistent with his known history of end-stage renal disease. However, his blood sugar was noted to be at 786 and his serum ketones were elevated 2.32. He was initiated on IV fluids within the limits of his respiratory status given his known history of end-stage renal disease and subsequently instituted on insulin drip per DKA protocol. The initial plan was for him to be admitted to the ICU for his DKA but he remained in the ER on the insulin drip and his gap closed with this intervention. He was subsequently admitted to the floor for ongoing management of his hyperglycemia. He has already been transition to subcu insulin therapy. Renal consultation was requested due to his end-stage renal disease. The patient normally does nightly peritoneal dialysis via [facility] under the care of Dr. Leandro Reyes. From a dialysis perspective, he is compliant with his dialysis treatments with relative stability in his monthly CKD/ESRD labs. Most of his hospital admissions are usually related more so with regard to his diabetes and associated problem/issues with hyperglycemia as well as diabetic ketoacidosis as mentioned above. He did receive his peritoneal dialysis treatment overnight and tolerated it well. His labs this morning stability in his electrolytes, acidosis, and BUN and creatinine. Currently, at the time my evaluation, he appears to be doing reasonably well and is in no apparent distress. Review of Systems 2 Review of Systems: As per HPI. [facility] Past Medical History Medical History Anemia in chronic kidney disease Anxiety Arthritis Chronic anticoagulation Congestive heart failure Echocardiogram May 2017 EF of 50% with hypokinetic apical, inferior and basal inferior lateral segment, mild enlargement of left atrium. Coronary artery disease History of several stents including complex procedure at [facility]/ stenting of a heavily calcified CX on OM using shockwave treatment. Deep venous thrombosis Chronic right popliteal DVT. Diabetic peripheral neuropathy Diabetic retinopathy End-stage renal disease on peritoneal dialysis Essential hypertension Gastroesophageal reflux disease Gout Hyperlipidemia Insulin dependent diabetes mellitus Obstructive sleep apnea With inconsistent CPAP use. Paroxysmal atrial fibrillation Renal osteodystrophy Right hand dominant Secondary hyperparathyroidism of renal origin Seizure X1 with etiology unknown Type 1 diabetes mellitus Onset around age 13. Surgical History Surgical History History of anterior cruciate ligament surgery (2000) Left knee History of appendectomy (2006) History of arthroscopy of left knee History of bilateral carpal tunnel release Right 05/03/2018. Left 06/02/2018. History of cardiac catheterization 01/21/2021 catheterization at [facility], Dr. Hoover done: Little change from prior catheterization. Patent stents in the RCA and PDA. Previously jailed posterolateral is occluded and development of a 50% stenosis of a branch of om 1. Normal LV function. :August 2019 demonstrated patent stents with 40% stenosis of 1 vessel with no stents or angioplasty performed per patient report. :November 2018 at [facility] - stent x3. :March 2017 demonstrating mild diffuse coronary disease 80% lesion small sub branch of obtuse marginal 1 and 90% stenosis distal RCA into the origin of the PDA with PTCA and stent to the RPDA/distal RCA performed by Dr. Petit. History of cataract extraction With lens implant History of coronary angioplasty with insertion of stent Drug-eluting stents for high-grade OM 99% occlusion 05/2022. History of hernia repair History of open reduction and internal fixation (ORIF) procedure (1982) Left lower extremity fracture. And the right hip pinning when he was in the 8th grade Peritoneal dialysis catheter in place S/P triple vessel bypass Sep 2023; [employer] Family History Family History Father , in his late 60s Acute myocardial infarction Premature coronary artery disease; <65yo CHF (congestive heart failure) Dementia Hypertension S/P triple vessel bypass Mother Lung cancer Hypertension Daughter Celiac disease Social History Social History Social History: Surrogate medical decision maker: Hodan Daigle (daughter) or Lorne Daigle (brother). Code status: Full code. Smoking status: Never smoker Second hand tobacco smoke exposure: No Alcohol intake: never Substance use: never Substance use type: does not use Do You Feel Safe in your Home?: Yes Lack of Transportation: YES Lack of Food: Sometimes True Current Housing: I Have Housing Concerned About Future Housing: No Difficulty Paying Gas/Electric Bills: No Difficulty Paying for Meds: YES Currently Unemployed: No Education: High School Diploma/GED Difficulty w/ Childcare or Family Care: No Living arrangements: alone Additional living arrangements comments: He is single and has 3 children. 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 Spiritual care concerns: No Agree to blood products: Yes Meds Home Medications and Allergies Home Medications ?Medication ?Instructions ?Recorded ?Confirmed ?Type calcitriol 0.25 mcg capsule 0.25 mcg PO QAM 06/04/19 07/30/24 History ergocalciferol (vitamin D2) 1,250 50,000 unit PO WEEKLY 06/04/19 07/30/24 History mcg (50,000 unit) capsule (Vitamin D2) nitroglycerin 0.4 mg sublingual 0.4 mg sublingual Q5-15M PRN Chest 06/04/19 07/30/24 History tablet Pain ezetimibe 10 mg tablet (Zetia) 10 mg PO DAILY 09/09/19 07/30/24 History cetirizine 10 mg tablet (All Day 10 mg PO DAILY 12/26/19 07/30/24 History Allergy (cetirizine)) atorvastatin 80 mg tablet 80 mg PO DAILY 11/26/20 07/30/24 History albuterol sulfate 90 mcg/actuation 1 inh inhalation QID PRN shortness 01/12/23 07/30/24 Rx aerosol inhaler (ProAir HFA) of breath or wheezing #8.5 grams metoprolol succinate 50 mg 25 mg PO HS 05/20/23 07/30/24 History tablet,extended release 24 hr potassium chloride 20 mEq 20 meq PO DAILY PRN Cramps 05/20/23 07/30/24 History tablet,extended release febuxostat 40 mg tablet 40 mg PO QPM 07/25/23 07/30/24 History gemfibrozil 600 mg tablet 600 mg PO Q12H 07/25/23 07/30/24 History linaclotide 72 mcg capsule 72 mcg PO DAILY PRN Diarrhea 07/25/23 07/30/24 History (Linzess) icosapent ethyl 1 gram capsule 1 g PO Q12H 02/16/24 07/30/24 History (Vascepa) torsemide 100 mg tablet 100 mg PO DAILY 02/16/24 07/30/24 History warfarin 3 mg tablet 3 mg PO DAILY #30 tabs 03/01/24 07/30/24 Rx insulin NPH isoph U-100 human 100 10 unit (0.1 mL) subcut DAILY PRN 05/16/24 07/30/24 Rx unit/mL (3 mL) subcutaneous pen if insulin pump malfunction; (Humulin N NPH U-100 Insulin before dialysis #15 mL KwikPen) insulin lispro 100 unit/mL 100 unit continuous subcutaneous 05/16/24 07/30/24 Rx subcutaneous solution (Humalog infusion DAILY #100 mL U-100 Insulin) insulin pump cart,automated,BT #45 ea 05/16/24 07/30/24 Rx (Omnipod 5 G6 Pods (Gen 5) subcutaneous cartridge) levothyroxine 25 mcg tablet 25 mcg PO DAILY #90 tabs 05/16/24 07/30/24 Rx moxifloxacin 0.5 % eye drops 1 drp LEFT EYE QID 05/27/24 07/30/24 History omeprazole 20 mg capsule,delayed 20 mg PO DAILY 06/06/24 07/30/24 History release pen needle, diabetic 32 gauge x #100 ea 07/10/24 07/30/24 Rx /32 (BD Lucrecia 2nd Gen Pen Needle) cephalexin 500 mg capsule 500 mg PO Q12H #14 caps 07/12/24 07/30/24 Rx amlodipine 10 mg tablet 10 mg PO HS 07/30/24 07/30/24 History calcium acetate(phosphat bind) 667 667 mg PO QID 07/30/24 07/30/24 History mg capsule erythromycin 5 mg/gram (0.5 %) eye 1 applic EACH EYE HS 07/30/24 07/30/24 History ointment glucagon 1 mg/0.2 mL subcutaneous See Rx Instructions .Route 07/30/24 07/30/24 History auto-injector (Gvoke HypoPen .COMPLEX PRN Hypoglycemia 2-Pack) warfarin 3 mg tablet 1.5 mg PO WEEKLY 07/30/24 07/30/24 History Allergies Allergy/AdvReac Type Severity Reaction Status Date / Time allopurinol Allergy Severe Other Verified 07/30/24 14:28 iodine Allergy Severe Rash Verified 07/30/24 14:28 iohexol (From CONTRAST - CT, Allergy Severe Difficulty Verified 07/30/24 14:28 XRAY) Breathing ticagrelor Allergy Intermediate Rash Verified 07/30/24 14:28 Vital Signs Vital Signs Temp Pulse Resp BP Pulse Ox O2 Del Method 07/31/24 13:49 97.5 F L 112 H 16 149/79 H 98 07/31/24 08:00 Room Air 07/31/24 05:20 97.2 F L 112 H 18 119/81 98 07/30/24 21:24 97.9 F 106 H 16 131/81 97 07/30/24 20:00 105 H 07/30/24 20:00 Room Air 07/30/24 18:15 Room Air Exam 2 Narrative: GENERAL APPEARANCE: well developed well nourished male in no acute distress HEENT: normocephalic, atraumatic, normal conjunctiva and sclera, nares patient NECK: no lymphadenopathy, thyromegaly, or JVD MOUTH: normal lips, teeth, and gums CARDIOVASCULAR: RRR, normal S1 and S2, no rub RESPIRATORY: clear to auscultation bilaterally ABDOMEN: soft, nontender, nondistended, positive bowel sounds present EXTREMITIES: no evidence of cyanosis, clubbing; trace edema noted (chronic) NEUROLOGICAL: alert and oriented x 3; CN II - XII intact bilaterally; no focal deficits noted Results Lab Results 08/01/24 06:20 08/01/24 06:20 Lab results: Most recent lab results ABG pH 7.356 (7.350-7.450) 07/30/24 00:30 ABG pCO2 32.0 mmHg (35.0-45.0) L 07/30/24 00:30 ABG pO2 76.8 mmHg (80.0-100.0) L 07/30/24 00:30 ABG HCO3 17.5 mEq/l (22.0-26.0) L 07/30/24 00:30 ABG O2 Saturation 95.0 % (95.0-100.0) 07/30/24 00:30 Calcium 8.7 mg/dL (8.4-10.2) 07/31/24 05:54 Phosphorus 6.4 mg/dL (2.5-4.5) H 07/29/24 23:37 Magnesium 2.1 mg/dL (1.6-2.3) 07/31/24 05:54
[2024-07-31 13:49] VITALS: BP 149/79; PULSE 112; RESP 16; TEMP 36.4; O2SAT 98
[2024-07-31 16:50] LABS: Glucose Point of Care 213 mg/dl (65-105)
[2024-07-31] MEDS: HYDROcodone/acetaminophen (*CRX) 5-325 MG TABLET 1 TAB PO (17:51)
[2024-07-31 21:05] VITALS: BP 138/73; PULSE 113; RESP 18; TEMP 36.4; O2SAT 95
[2024-07-31] MEDS: INSULIN HUMAN REGULAR (*BKC) 100 UNITS/ML 12 UNITS IV PUSH (21:17)
[2024-07-31] MEDS: INSULIN GLARGINE (*BKC) 100 UNITS/ML 10 UNITS SUB-Q (21:18)
[2024-07-31 21:24] LABS: Glucose Point of Care 405 mg/dl (65-105)
[2024-07-31 22:48] LABS: Glucose Point of Care 446 mg/dl (65-105)
[2024-07-31] MEDS: INSULIN HUMAN REGULAR (*BKC) 100 UNITS/ML 14 UNITS SUB-Q (23:19)
[2024-08-01 00:56] LABS: Glucose Point of Care 418 mg/dl (65-105)
[2024-08-01] MEDS: INSULIN HUMAN REGULAR (*BKC) 100 UNITS/ML 12 UNITS SUB-Q (01:05)
[2024-08-01 05:34] VITALS: BP 145/81; PULSE 115; RESP 18; TEMP 36.1; O2SAT 100
[2024-08-01] MEDS: LEVOTHYROXINE SODIUM 25 MCG TABLET PO (05:54)
[2024-08-01 06:03] LABS: Glucose Point of Care 107 mg/dl (65-105)
[2024-08-01 06:36] LABS: Basophils Percent Auto 0.5 % (0.2-1.2); Eosinophils Absolute Auto 0.2 K/mm3 (0-0.3); Eosinophils Percent Auto 4.4 % (0-4.4); Hematocrit 32.3 % (42.0-52.0); Hemoglobin 10.5 g/dL (14.0-18.0); Immature Granulocyte Absolute 0.02 K/mm3 (0.00-0.031); Immature Granulocyte Percent A 0.5 % (0-0.5); Lymphocytes Absolute Auto 1.16 K/mm3 (0.9-3.2); Lymphocytes Percent Auto 27.2 % (18.3-44.2); Mean Corpuscular HGB Conc 32.5 g/dl (32-36); Mean Corpuscular Hemoglobin 30.3 pg (26-34); Mean Corpuscular Volume 93.4 fl (80-100); Mean Platelet Volume 10.8 fl (7.4-10.4); Monocytes Absolute Auto 0.6 K/mm3 (0.1-0.6); Monocytes Percent Auto 14.5 % (2.6-8.5); Neutrophils Absolute Auto 2.3 K/mm3 (1.3-6.7); Neutrophils Percent Auto 52.9 % (45.5-73.1); Platelet Count Result 158 k/mm3 (150-375); Red Blood Count 3.46 M/mm3 (4.6-6.20); Red Cell Distribution Width 14.5 % (11.5-14.5); White Blood Count 4.3 K/mm3 (4.5-10.0)
[2024-08-01 06:46] LABS: Alanine Aminotransferase 33 U/L (6-50); Albumin Level 3.5 g/dL (3.5-5.1); Alkaline Phosphatase 75 U/L (38-126); Anion Gap 9 mmol/L (4-12); Aspartate Amino Transferase 38 U/L (17-59); Bilirubin,Total 0.5 mg/dL (0.2-1.3); Blood Urea Nitrogen 69 mg/dL (9-20); Calcium 8.6 mg/dL (8.4-10.2); Carbon Dioxide 24 mmol/L (22-30); Chloride 99 mmol/L (98-107); Estimated CRCL calculation 12 ml/min; Estimated Glomerular Filt Rate 6; Glucose 107 mg/dL (65-110); Magnesium 2.1 mg/dL (1.6-2.3); Potassium 3.9 mmol/L (3.4-5.0); Sodium 132 mmol/L (137-145)
[2024-08-01 06:47] LABS: INR 2.2; Prothrombin Time 24.4 Seconds (11.1-14.7)
[2024-08-01 07:24] VITALS: BP 136/74; PULSE 115; RESP 18; TEMP 36.1
[2024-08-01 08:33] LABS: Glucose Point of Care 113 mg/dl (65-105)
--- NOTE | 2024-08-01 08:45 | P.PNNP_ITS ---
Progress Note: A&P Assessment and Plan (1) End stage renal disease: Code(s): N18.6 - End stage renal disease Status: Chronic Assessment and Plan: * continue nightly peritoneal dialysis treatments * follow electrolytes, volume status and clearance * primary geodetic engineer = Dr Sharath Reyes * outpatient dialysis unit = [facility] (2) DKA (diabetic ketoacidosis): Qualifiers: Diabetes mellitus complication detail: without coma Diabetes mellitus type: type 1 Qualified Code(s): E10.10 - Type 1 diabetes mellitus with ketoacidosis without coma Code(s): E11.10 - Type 2 diabetes mellitus with ketoacidosis without coma Status: Acute Assessment and Plan: * resolved * treated with IV fluid resuscitation as tolerated due to patient's history of end-stage renal disease and insulin gtt * off insulin gtt * on SQ insulin with plan resume home insulin gtt * follow accu-cheks (3) Anemia: Code(s): D64.9 - Anemia, unspecified Status: Chronic Assessment and Plan: * due to ESRD and acute illness * H/H at goal * CORRINE if Hgb < 10 (4) Hypertension: Code(s): I10 - Essential (primary) hypertension Status: Chronic Assessment and Plan: * reasonable control at this time * resume home medications as needed * follow trend of hemodynamics (5) Obstructive sleep apnea: Code(s): G47.33 - Obstructive sleep apnea (adult) (pediatric) Status: Chronic Assessment and Plan: * continue CPAP use Not oppposed to discharge from renal perspective if otherwise medically stable. Will continue to follow. Subjective Date/time seen: 08/01/24 08:45 Interval history: Follow-up for end stage renal disease on peritoneal dialysis. Tolerated peritoneal dialysis treatment overnight without any issues or problems (PD treatment supervised overnight and seen at 8:30AM); overall, feels quite well and denies any acute complaints; no other events overnight or earlier today; no distress voiced at the time of my visit. Exam 2 Narrative: General: WD/WN male in NAD Heart: normal S1 and S2; no rub Lungs: clear to auscultation Abdomen: soft, nontender, nondistended, positive bowel sounds Extremities: no cyanosis or clubbing; 1+ edema (chronic) Skin: warm and dry Objective Data Vital Signs Vital Signs: Vital Signs Temp Pulse Resp BP Pulse Ox O2 Del Method 08/01/24 07:24 97 F L 115 H 18 136/74 08/01/24 05:34 97 F L 115 H 18 145/81 H 100 07/31/24 21:05 97.6 F 113 H 18 138/73 95 07/31/24 20:00 Room Air 07/31/24 13:49 97.5 F L 112 H 16 149/79 H 98 Intake/Output Intake/Output: Intake & Output 07/29/24 07/30/24 07/31/24 08/01/24 23:59 23:59 23:59 23:59 Intake Total 3211.4 1380 200 Output Total 1353 1948 Balance 3211.4 27 -9454 Meds/Results Medications: Active Medications Generic Name Dose Route Start Last Admin Trade Name Freq PRN Reason Stop Dose Admin Acetaminophen 650 mg 07/30/24 07:51 07/30/24 08:02 Acetaminophen 325 Mg Tablet PO 650 mg Q6H PRN Administration Mild Pain (1-3) or Fever Hydrocodone Bitart/Acetaminophen 1 tab 07/31/24 17:38 07/31/24 17:51 Hydrocodone/Acetaminophen (*Crx) 5-325 Mg Tablet PO 1 tab Q6H PRN Administration Pain Rated 4-6 Atorvastatin Calcium 80 mg 07/31/24 09:00 07/31/24 09:08 Atorvastatin 40 Mg Tablet PO 80 mg DAILY ASHLEY Administration Dextrose 12.5 gm 07/30/24 18:34 Dextrose 50% 25 Gm/50 Ml Syringe IV PUSH PRN PRN Hypoglycemia Protocol Ezetimibe 10 mg 07/31/24 09:00 07/31/24 09:08 Ezetimibe 10 Mg Tablet PO 10 mg DAILY ASHLEY Administration Fish Oil 1 gm 07/30/24 21:00 07/31/24 20:22 Addy 3 Polyunsat Fatty Acids 1 Gm Cap PO 1 gm Q12H ASHLEY Administration Glucagon 1 mg 07/30/24 18:34 Glucagon For Inj 1 Mg Vial IM PRN PRN Hypoglycemia Protocol Glucose 15 gm 07/30/24 18:34 Glucose Oral Gel 15 Gm Of Glucse In 37.5 Gm Tube PO PRN PRN Hypoglycemia Protocol Dextrose 1,000 mls @ 100 mls/hr 07/30/24 18:34 Dextrose 5% 1,000 Ml IVPB PRN PRN Hypoglycemia Protocol Insulin Aspart 5 units 07/30/24 12:00 07/31/24 17:52 Insulin Aspart (*Bkc) 100 Units/Ml SUB-Q 5 units TIDWM [facility] Administration Insulin Glargine 10 units 07/30/24 21:00 07/31/24 21:18 Insulin Glargine (*Bkc) 100 Units/Ml SUB-Q 10 units HS [facility] Administration Levothyroxine Sodium 25 mcg 07/31/24 06:30 08/01/24 05:54 Levothyroxine Sodium 25 Mcg Tablet PO 25 mcg DAILY@0630 [facility] Administration Linaclotide 72 mcg 07/30/24 18:21 Linaclotide 72 Mcg Capsule PO DAILY PRN Diarrhea Ondansetron HCl 4 mg 07/30/24 01:37 Ondansetron Inj 4 Mg/2 Ml Vial IV PUSH Q4H PRN Nausea Warfarin Sodium 1.5 mg 08/02/24 17:00 Warfarin (*Pbkc) 1.5 Mg Tablet PO Fr@1700 [facility] Warfarin Sodium 3 mg 07/31/24 17:00 Warfarin (*Pbkc) 3 Mg Tablet PO SuMoTuWeThSa@1700 [facility] Labs Labs: Laboratory Tests 08/01/24 06:20 08/01/24 06:20 Calcium 8.6 Magnesium 2.1 Total Bilirubin 0.5 AST 38 ALT 33 Alkaline Phosphatase 75 Total Protein 6.0 L Albumin 3.5 Microbiology 07/29/24 23:37 Unspecified Urine Culture - Final 07/30/24 08:57 Blood Blood Culture - Preliminary 07/30/24 09:06 Blood Blood Culture - Preliminary
[2024-08-01] MEDS: EZETIMIBE 10 MG TABLET PO (09:19)
[2024-08-01] MEDS: OMEGA 3 POLYUNSAT FATTY ACIDS 1 GM CAP PO ×2 (09:19→20:46)
[2024-08-01] MEDS: ATORVASTATIN 40 MG TABLET 80 MG PO (09:20)
[2024-08-01 11:49] LABS: Glucose Point of Care 164 mg/dl (65-105)
[2024-08-01] MEDS: INSULIN ASPART (*BKC) 100 UNITS/ML SUB-Q (13:01)
[2024-08-01 13:47] VITALS: BP 145/77; PULSE 116; RESP 18; TEMP 36.4; O2SAT 97
--- NOTE | 2024-08-01 15:06 | ECG_ITS ---
Test Date: 2024-08-01 15:31:50 Measurements Intervals [place] Rate: 115 P: 258 MS: 174 QRS: -40 QRSD: 148 T: 136 QT: 356 QTc: 494 Interpretive Statements SINUS TACHYCARDIA LEFT AXIS DEVIATION [QRS AXIS < -30] LEFT BUNDLE BRANCH BLOCK PVC Compared to ECG 06/06/2024 21:16:46 Left-axis deviation now present First degree AV block no longer present Electronically Signed On 08-01-2024 16:26:45 RATE QUOTING OPERATOR by Jeanne Carter
[2024-08-01 16:28] LABS: Glucose Point of Care 348 mg/dl (65-105)
--- NOTE | 2024-08-01 18:26 | P.PNIM_ITS ---
Progress Note: A&P Assessment and Plan (1) DKA (diabetic ketoacidosis): Qualifiers: Diabetes mellitus complication detail: without coma Diabetes mellitus type: type 1 Qualified Code(s): E10.10 - Type 1 diabetes mellitus with ketoacidosis without coma Code(s): E11.10 - Type 2 diabetes mellitus with ketoacidosis without coma Status: Acute (2) ESRD on peritoneal dialysis: Code(s): N18.6 - End stage renal disease; Z99.2 - Dependence on renal dialysis Status: Acute Plan DKA, resolved type 1 diabetes Patient normally on insulin pump present status post IVF and insulin infusion per DKA protocol Blood sugar labile overnight Pending on subQ regimen, Lantus 10 units pre meals 5 units , On sliding scale insulin with Accu-Cheks. monitor End-stage renal disease on peritoneal dialysis Undergoing transplant evaluation [facility] Urine Nephrology consulted ongoing dialysis. CHF Continue dialysis Hypertension titrate medications to need Coronary artery disease status post CABG 2 placement Continue home medication. Patient is on warfarin, INR is for, pharmacy to continue his warfarin. Supratherapeutic INR, resolved INR 2.2 this morning monitor restarted Warfarin Sinus tachycardia per EKG 250 cc bolus NS Restart home metoprolol and monitor DVT prophylaxis warfarin on hold and is supratherapeutic. Patient is full code Surrogate decision maker is nicole Foley Subjective Date/time seen: 08/01/24 18:26 Interval history: patient was tachycardic today, restarted on Metoprolol monitor overnight Review of Systems Review of Systems: All other systems reviewed and negative except as noted in HPI above. Exam Narrative: General: alert and comfortable Eyes: EOMI, PERRLA ENNT External ears normal, Neck is supple, no masses, Respiratory systems: Clear to auscultation Cardiovascular S1, S2, normal rhythm, no murmur, rub, or gallop; no thrill or palpable murmurs on palpation. Gastrointestinal: soft, non-tender, and non-distended abdomen with no masses; BS present Skin: no rash, lesions, ulcerations, subcutaneous nodules or induration Musculoskeletal: no abnormality and no tenderness, normal ROM Neurologic: Alert and oriented x3, non focal Mental Status Exam: normal affect Objective Data Vital Signs Vital Signs: Vital Signs - 24 hr 07/31/24 20:00 07/31/24 21:05 08/01/24 05:34 Temperature 97.6 F 97 F L Pulse Rate 113 H 115 H Respiratory Rate 18 18 Blood Pressure 138/73 145/81 H Pulse Oximetry 95 100 Oxygen Delivery Room Air 08/01/24 07:24 08/01/24 08:00 08/01/24 13:47 Temperature 97 F L 97.5 F L Pulse Rate 115 H 116 H Respiratory Rate 18 18 Blood Pressure 136/74 145/77 H Pulse Oximetry 97 Oxygen Delivery Room Air Intake/Output Intake/Output: Intake & Output 07/29/24 07/30/24 07/31/24 08/01/24 23:59 23:59 23:59 23:59 Intake Total 3211.4 1380 1160 Output Total 1353 1948 Balance 3211.4 27 -868 Meds/Results Medications: Active Medications Generic Name Dose Route Start Last Admin Trade Name Freq PRN Reason Stop Dose Admin Acetaminophen 650 mg 07/30/24 07:51 07/30/24 08:02 Acetaminophen 325 Mg Tablet PO 650 mg Q6H PRN Administration Mild Pain (1-3) or Fever Hydrocodone Bitart/Acetaminophen 1 tab 07/31/24 17:38 07/31/24 17:51 Hydrocodone/Acetaminophen (*Crx) 5-325 Mg Tablet PO 1 tab Q6H PRN Administration Pain Rated 4-6 Atorvastatin Calcium 80 mg 07/31/24 09:00 08/01/24 09:20 Atorvastatin 40 Mg Tablet PO 80 mg DAILY ASHLEY Administration Dextrose 12.5 gm 07/30/24 18:34 Dextrose 50% 25 Gm/50 Ml Syringe IV PUSH PRN PRN Hypoglycemia Protocol Ezetimibe 10 mg 07/31/24 09:00 08/01/24 09:19 Ezetimibe 10 Mg Tablet PO 10 mg DAILY ASHLEY Administration Fish Oil 1 gm 07/30/24 21:00 08/01/24 09:19 [place] 3 Polyunsat Fatty Acids 1 Gm Cap PO 1 gm Q12H ASHLEY Administration Glucagon 1 mg 07/30/24 18:34 Glucagon For Inj 1 Mg Vial IM PRN PRN Hypoglycemia Protocol Glucose 15 gm 07/30/24 18:34 Glucose Oral Gel 15 Gm Of Glucse In 37.5 Gm Tube PO PRN PRN Hypoglycemia Protocol Dextrose 1,000 mls @ 100 mls/hr 07/30/24 18:34 Dextrose 5% 1,000 Ml IVPB PRN PRN Hypoglycemia Protocol Insulin Aspart 5 units 07/30/24 12:00 08/01/24 18:12 Insulin Aspart (*Bkc) 100 Units/Ml SUB-Q Not Given TIDWM [facility] Insulin Glargine 10 units 07/30/24 21:00 07/31/24 21:18 Insulin Glargine (*Bkc) 100 Units/Ml SUB-Q 10 units HS [facility] Administration Levothyroxine Sodium 25 mcg 07/31/24 06:30 08/01/24 05:54 Levothyroxine Sodium 25 Mcg Tablet PO 25 mcg DAILY@0630 [facility] Administration Linaclotide 72 mcg 07/30/24 18:21 Linaclotide 72 Mcg Capsule PO DAILY PRN Diarrhea Metoprolol Tartrate 25 mg 08/01/24 21:00 Metoprolol Tartrate 25 Mg Tablet PO Q12HR [facility] Ondansetron HCl 4 mg 07/30/24 01:37 Ondansetron Inj 4 Mg/2 Ml Vial IV PUSH Q4H PRN Nausea Warfarin Sodium 1.5 mg 08/02/24 17:00 Warfarin (*Pbkc) 1.5 Mg Tablet PO Fr@1700 [facility] Warfarin Sodium 3 mg 07/31/24 17:00 Warfarin (*Pbkc) 3 Mg Tablet PO SuMoTuWeThSa@1700 [facility] Labs Labs: Laboratory Results - last 24 hr 07/31/24 07/31/24 08/01/24 20:22 22:46 00:53 WBC RBC Hgb Hct MCV MCH MCHC RDW Plt Count MPV Immature Gran % (Auto) Neut % (Auto) Lymph % (Auto) [place] % (Auto) Eos % (Auto) Baso % (Auto) Lymph # (Auto) [place] # (Auto) Eos # (Auto) Baso # (Auto) Abs Immat Gran (auto) Absolute Neuts (auto) Absolute Nucleated RBC Nucleated RBC % PT INR Sodium Potassium Chloride Carbon Dioxide Anion Gap BUN Creatinine Estim Creat Clear Calc Estimated GFR Glucose POC Capillary Glucose 405 H 446 H 418 H Calcium Magnesium Total Bilirubin AST ALT Alkaline Phosphatase Total Protein Albumin 08/01/24 08/01/24 08/01/24 05:53 06:20 08:29 WBC 4.3 L RBC 3.46 L Hgb 10.5 L Hct 32.3 L MCV 93.4 MCH 30.3 MCHC 32.5 RDW 14.5 Plt Count 158 MPV 10.8 H Immature Gran % (Auto) 0.5 Neut % (Auto) 52.9 Lymph % (Auto) 27.2 [place] % (Auto) 14.5 H Eos % (Auto) 4.4 Baso % (Auto) 0.5 Lymph # (Auto) 1.16 [place] # (Auto) 0.6 Eos # (Auto) 0.2 Baso # (Auto) 0.0 Abs Immat Gran (auto) 0.02 Absolute Neuts (auto) 2.3 Absolute Nucleated RBC 0.000 Nucleated RBC % 0.0 PT 24.4 H D INR 2.2 Sodium 132 L Potassium 3.9 Chloride 99 Carbon Dioxide 24 Anion Gap 9 BUN 69 H Creatinine 8.80 H Estim Creat Clear Calc 12 Estimated GFR 6 L Glucose 107 POC Capillary Glucose 107 H 113 H Calcium 8.6 Magnesium 2.1 Total Bilirubin 0.5 AST 38 ALT 33 Alkaline Phosphatase 75 Total Protein 6.0 L Albumin 3.5 08/01/24 08/01/24 11:45 16:22 WBC RBC Hgb Hct MCV MCH MCHC RDW Plt Count MPV Immature Gran % (Auto) Neut % (Auto) Lymph % (Auto) [place] % (Auto) Eos % (Auto) Baso % (Auto) Lymph # (Auto) [place] # (Auto) Eos # (Auto) Baso # (Auto) Abs Immat Gran (auto) Absolute Neuts (auto) Absolute Nucleated RBC Nucleated RBC % PT INR Sodium Potassium Chloride Carbon Dioxide Anion Gap BUN Creatinine Estim Creat Clear Calc Estimated GFR Glucose POC Capillary Glucose 164 H 348 H Calcium Magnesium Total Bilirubin AST ALT Alkaline Phosphatase Total Protein Albumin
[2024-08-01] MEDS: SODIUM CHLORIDE 0.9% IV 250 ML 100 ML IV CONT (18:51)
[2024-08-01 19:51] VITALS: BP 147/77; PULSE 116; RESP 18; TEMP 36.4; O2SAT 98
[2024-08-01 20:46] VITALS: PULSE 116
[2024-08-01] MEDS: METOPROLOL TARTRATE 25 MG TABLET PO (20:46)
[2024-08-01] MEDS: INSULIN GLARGINE (*BKC) 100 UNITS/ML 10 UNITS SUB-Q (20:46)
[2024-08-01 21:46] LABS: Glucose Point of Care 337 mg/dl (65-105)
[2024-08-02] MEDS: HYDROcodone/acetaminophen (*CRX) 5-325 MG TABLET 1 TAB PO (05:49)
[2024-08-02] MEDS: LEVOTHYROXINE SODIUM 25 MCG TABLET PO (05:49)
[2024-08-02 05:54] LABS: Basophils Percent Auto 0.7 % (0.2-1.2); Eosinophils Absolute Auto 0.3 K/mm3 (0-0.3); Eosinophils Percent Auto 5.5 % (0-4.4); Hematocrit 33.1 % (42.0-52.0); Hemoglobin 10.8 g/dL (14.0-18.0); Immature Granulocyte Absolute 0.02 K/mm3 (0.00-0.031); Immature Granulocyte Percent A 0.4 % (0-0.5); Lymphocytes Absolute Auto 1.03 K/mm3 (0.9-3.2); Lymphocytes Percent Auto 22.7 % (18.3-44.2); Mean Corpuscular HGB Conc 32.6 g/dl (32-36); Mean Corpuscular Hemoglobin 30.3 pg (26-34); Mean Corpuscular Volume 92.7 fl (80-100); Monocytes Absolute Auto 0.7 K/mm3 (0.1-0.6); Monocytes Percent Auto 15.5 % (2.6-8.5); Neutrophils Absolute Auto 2.5 K/mm3 (1.3-6.7); Neutrophils Percent Auto 55.2 % (45.5-73.1); Platelet Count Result 157 k/mm3 (150-375); Red Blood Count 3.57 M/mm3 (4.6-6.20); Red Cell Distribution Width 14.3 % (11.5-14.5); White Blood Count 4.5 K/mm3 (4.5-10.0)
[2024-08-02 06:00] VITALS: BP 137/85; PULSE 115; RESP 18; TEMP 36.2; O2SAT 100
[2024-08-02 06:02] LABS: Alanine Aminotransferase 35 U/L (6-50); Albumin Level 3.4 g/dL (3.5-5.1); Alkaline Phosphatase 81 U/L (38-126); Anion Gap 6 mmol/L (4-12); Aspartate Amino Transferase 37 U/L (17-59); Bilirubin,Total 0.6 mg/dL (0.2-1.3); Blood Urea Nitrogen 68 mg/dL (9-20); Calcium 8.5 mg/dL (8.4-10.2); Carbon Dioxide 28 mmol/L (22-30); Chloride 98 mmol/L (98-107); Estimated CRCL calculation 11 ml/min; Estimated Glomerular Filt Rate 6; Glucose 149 mg/dL (65-110); Magnesium 2.1 mg/dL (1.6-2.3); Potassium 4.4 mmol/L (3.4-5.0); Sodium 132 mmol/L (137-145)
[2024-08-02 06:19] LABS: INR 1.5
[2024-08-02 08:18] LABS: Lactic Acid Reflex 0.6 mmol/L (0.7-2.0)
[2024-08-02 08:57] LABS: Glucose Point of Care 121 mg/dl (65-105)
--- NOTE | 2024-08-02 09:00 | P.PNNP_ITS ---
Progress Note: A&P Assessment and Plan (1) End stage renal disease: Code(s): N18.6 - End stage renal disease Status: Chronic Assessment and Plan: * continue nightly peritoneal dialysis treatments * follow electrolytes, volume status and clearance * primary lead performance support analyst = Dr Sharath Reyes * outpatient dialysis unit = [facility] (2) DKA (diabetic ketoacidosis): Qualifiers: Diabetes mellitus complication detail: without coma Diabetes mellitus type: type 1 Qualified Code(s): E10.10 - Type 1 diabetes mellitus with ketoacidosis without coma Code(s): E11.10 - Type 2 diabetes mellitus with ketoacidosis without coma Status: Acute Assessment and Plan: * resolved * treated with IV fluid resuscitation as tolerated due to patient's history of end-stage renal disease and insulin gtt * off insulin gtt * on SQ insulin with plan resume home insulin gtt * follow accu-cheks (3) Anemia: Code(s): D64.9 - Anemia, unspecified Status: Chronic Assessment and Plan: * due to ESRD and acute illness * H/H at goal * CORRINE if Hgb < 10 (4) Hypertension: Code(s): I10 - Essential (primary) hypertension Status: Chronic Assessment and Plan: * reasonable control at this time * resume home medications as needed * follow trend of hemodynamics (5) Obstructive sleep apnea: Code(s): G47.33 - Obstructive sleep apnea (adult) (pediatric) Status: Chronic Assessment and Plan: * continue CPAP use Not oppposed to discharge from renal perspective if otherwise medically stable. Will continue to follow. Subjective Date/time seen: 08/02/24 09:00 Interval history: Follow-up for end stage renal disease on peritoneal dialysis. Tolerated peritoneal dialysis treatment overnight without any issues or problems (PD treatment supervised overnight and seen at 8:50AM); no apparent distress voiced when seen; eating and drinking well; no events overnight or earlier this morning; feels reasonably well. Exam 2 Narrative: General: WD/WN male in NAD Heart: normal S1 and S2; no rub Lungs: clear to auscultation Abdomen: soft, nontender, nondistended, positive bowel sounds Extremities: no cyanosis or clubbing; 1+ edema (chronic) Skin: warm and intact Objective Data Vital Signs Vital Signs: Vital Signs Temp Pulse Resp BP Pulse Ox O2 Del Method 08/02/24 06:00 97.1 F L 115 H 18 137/85 100 08/01/24 20:46 116 H 08/01/24 19:51 97.6 F 116 H 18 147/77 H 98 08/01/24 19:50 Room Air 08/01/24 13:47 97.5 F L 116 H 18 145/77 H 97 Intake/Output Intake/Output: Intake & Output 07/30/24 07/31/24 08/01/24 08/02/24 23:59 23:59 23:59 23:59 Intake Total 3211.4 1380 1410 960 Output Total 1353 1948 Balance 3211.4 27 534 960 Meds/Results Medications: Active Medications Generic Name Dose Route Start Last Admin Trade Name Freq PRN Reason Stop Dose Admin Acetaminophen 650 mg 07/30/24 07:51 07/30/24 08:02 Acetaminophen 325 Mg Tablet PO 650 mg Q6H PRN Administration Mild Pain (1-3) or Fever Hydrocodone Bitart/Acetaminophen 1 tab 07/31/24 17:38 08/02/24 05:49 Hydrocodone/Acetaminophen (*Crx) 5-325 Mg Tablet PO 1 tab Q6H PRN Administration Pain Rated 4-6 Atorvastatin Calcium 80 mg 07/31/24 09:00 08/02/24 09:43 Atorvastatin 40 Mg Tablet PO 80 mg DAILY ASHLEY Administration Dextrose 12.5 gm 07/30/24 18:34 Dextrose 50% 25 Gm/50 Ml Syringe IV PUSH PRN PRN Hypoglycemia Protocol Ezetimibe 10 mg 07/31/24 09:00 08/02/24 09:44 Ezetimibe 10 Mg Tablet PO 10 mg DAILY ASHLEY Administration Fish Oil 1 gm 07/30/24 21:00 08/02/24 09:43 [place] 3 Polyunsat Fatty Acids 1 Gm Cap PO 1 gm Q12H ASHLEY Administration Glucagon 1 mg 07/30/24 18:34 Glucagon For Inj 1 Mg Vial IM PRN PRN Hypoglycemia Protocol Glucose 15 gm 07/30/24 18:34 Glucose Oral Gel 15 Gm Of Glucse In 37.5 Gm Tube PO PRN PRN Hypoglycemia Protocol Dextrose 1,000 mls @ 100 mls/hr 07/30/24 18:34 Dextrose 5% 1,000 Ml IVPB PRN PRN Hypoglycemia Protocol Levofloxacin/Dextrose 500 mg in 100 mls @ 100 mls/hr 08/02/24 10:06 Levaquin 500 Mg/D5w 100 Ml IVPB 08/02/24 11:05 ONCE ONE Insulin Aspart 5 units 07/30/24 12:00 08/02/24 09:40 Insulin Aspart (*Bkc) 100 Units/Ml SUB-Q Not Given TIDWM [facility] Insulin Glargine 10 units 07/30/24 21:00 08/01/24 20:46 Insulin Glargine (*Bkc) 100 Units/Ml SUB-Q 10 units HS [facility] Administration Levothyroxine Sodium 25 mcg 07/31/24 06:30 08/02/24 05:49 Levothyroxine Sodium 25 Mcg Tablet PO 25 mcg DAILY@0630 [facility] Administration Linaclotide 72 mcg 07/30/24 18:21 Linaclotide 72 Mcg Capsule PO DAILY PRN Diarrhea Metoprolol Tartrate 25 mg 08/01/24 21:00 08/02/24 09:43 Metoprolol Tartrate 25 Mg Tablet PO 25 mg Q12HR [facility] Administration Ondansetron HCl 4 mg 07/30/24 01:37 Ondansetron Inj 4 Mg/2 Ml Vial IV PUSH Q4H PRN Nausea Warfarin Sodium 1.5 mg 08/02/24 17:00 Warfarin (*Pbkc) 1.5 Mg Tablet PO Fr@1700 [facility] Warfarin Sodium 3 mg 07/31/24 17:00 Warfarin (*Pbkc) 3 Mg Tablet PO SuMoTuWeThSa@1700 [facility] Radiology Results: ITS Impressions Chest X-Ray 08/02/24 09:52 Impression: 1: Left basilar infiltrates, consistent with pneumonia. 2: Small left pleural effusion. Labs Labs: Laboratory Tests 08/02/24 05:39 08/02/24 05:39 Calcium 8.5 Magnesium 2.1 Total Bilirubin 0.6 AST 37 ALT 35 Alkaline Phosphatase 81 Total Protein 6.0 L Albumin 3.4 L
[2024-08-02 09:43] VITALS: PULSE 100
[2024-08-02] MEDS: OMEGA 3 POLYUNSAT FATTY ACIDS 1 GM CAP PO (09:43)
[2024-08-02] MEDS: METOPROLOL TARTRATE 25 MG TABLET PO (09:43)
[2024-08-02] MEDS: ATORVASTATIN 40 MG TABLET 80 MG PO (09:43)
[2024-08-02] MEDS: EZETIMIBE 10 MG TABLET PO (09:44)
[2024-08-02] MEDS: levoFLOXacin 500 MG/D5W 100 ML 500 MG/100 ML BAG 100 MG IVPB (11:23)
[2024-08-02 12:35] LABS: Glucose Point of Care 121 mg/dl (65-105)
[2024-08-02 14:19] VITALS: BP 131/69; PULSE 115; RESP 18; TEMP 36.4; O2SAT 99
--- NOTE | 2024-08-02 15:26 | PM.DS ---
DS: Admitting Diagnosis Discharge Date 08/02/24 Admitting Diagnosis Hyperlgycemia DS: Discharge Diagnosis Discharge Diagnosis (1) ESRD on peritoneal dialysis: Code(s): N18.6 - End stage renal disease; Z99.2 - Dependence on renal dialysis Status: Acute (2) DKA (diabetic ketoacidosis): Qualifiers: Diabetes mellitus complication detail: without coma Diabetes mellitus type: type 1 Qualified Code(s): E10.10 - Type 1 diabetes mellitus with ketoacidosis without coma Code(s): E11.10 - Type 2 diabetes mellitus with ketoacidosis without coma Status: Acute (3) Pneumonia: Code(s): J18.9 - Pneumonia, unspecified organism Status: Acute DS: Summary Hospital Course Hospital Course: 53-year-old male type 1 diabetes, end-stage renal disease on peritoneal dialysis awaiting transplant at [facility], CHF, hypertension, coronary artery disease status post CABG and aortic valve replacement presented to the ER on account of elevated blood sugar. Patient reported that he wears a insulin pump and yesterday he went for his transplant evaluation at [facility] noted he wore his pump dropped yesterday however when he got home he noticed his blood sugar was severely elevated prompting him to present to the ER for proper evaluation and care. Patient denies noncompliance with insulin pump no chest pain no shortness of bread no fever no runny nose no diarrhea no abdominal pain no dysuria. ER evaluation notable for emergency room pulse rate 109, respiratory rate 17 blood pressure 120/69, saturating 100% on room air. Labs notable for hemoglobin 9.6 sodium 26, creatinine 8.8, BUN 77 blood glucose 786, serum ketones 2.32. Patient was started fluids and insulin infusion per DKA protocol. Gap closing the ER presentation does patient was admitted to medical floor. He was a incision and to subacute regimen. Patient was managed with IVF and insulin infusion and successfully transitioned to subq regimen. He did well on Lantus 10u and premeal Novolog 5 unit, thus he was discharged on the regimen. he will follow up with his endocrinology about transitioning back to Insulin Pump. CXR showed pneumonia and patient was started on Levaquin, discharged on 6 more days of levaquin. Supratherapeutic INR, warfarin was held and now restarted after INR was within therapeutic range. Nephrology was on board during his stay for peritoneal dialysis. Patient will continue follow up with transplant team at [facility]. F/u with PCP in 3-5 days F/u with nephrology as instructed Assessment and Plan (1) DKA (diabetic ketoacidosis): Qualifiers: Diabetes mellitus complication detail: without coma Diabetes mellitus type: type 1 Qualified Code(s): E10.10 - Type 1 diabetes mellitus with ketoacidosis without coma Code(s): E11.10 - Type 2 diabetes mellitus with ketoacidosis without coma Status: Acute (2) ESRD on peritoneal dialysis: Code(s): N18.6 - End stage renal disease; Z99.2 - Dependence on renal dialysis Status: Acute Plan DKA, resolved type 1 diabetes Patient normally on insulin pump present status post IVF and insulin infusion per DKA protocol Blood sugar labile overnight Pending on subQ regimen, Lantus 10 units pre meals 5 units , On sliding scale insulin with Accu-Cheks. monitor End-stage renal disease on peritoneal dialysis Undergoing transplant evaluation [facility] Urine Nephrology consulted ongoing dialysis. CHF Continue dialysis Hypertension titrate medications to need Coronary artery disease status post CABG 2 placement Continue home medication. Patient is on warfarin, INR is for, pharmacy to continue his warfarin. Supratherapeutic INR, resolved INR 2.2 this morning monitor restarted Warfarin Sinus tachycardia per EKG 250 cc bolus NS Restart home metoprolol and monitor Time Spent with Patient Time attestation: Total time spent providing and/or coordinating discharge services: DS: Data Data Completed and Pending Labs on day of discharge: Labs from last 24 hours 08/02/24 08/02/24 08/02/24 12:29 08:50 08:03 WBC RBC Hgb Hct MCV MCH MCHC RDW Plt Count MPV Immature Gran % (Auto) Neut % (Auto) Lymph % (Auto) [place] % (Auto) Eos % (Auto) Baso % (Auto) Lymph # (Auto) [place] # (Auto) Eos # (Auto) Baso # (Auto) Abs Immat Gran (auto) Absolute Neuts (auto) Absolute Nucleated RBC Nucleated RBC % PT INR Sodium Potassium Chloride Carbon Dioxide Anion Gap BUN Creatinine Estim Creat Clear Calc Estimated GFR Glucose POC Capillary Glucose 121 H 121 H Lactic Acid 0.6 L Calcium Magnesium Total Bilirubin AST ALT Alkaline Phosphatase Total Protein Albumin 08/02/24 08/01/24 08/01/24 05:39 19:54 16:22 WBC 4.5 RBC 3.57 L Hgb 10.8 L Hct 33.1 L MCV 92.7 MCH 30.3 MCHC 32.6 RDW 14.3 Plt Count 157 MPV 10.0 Immature Gran % (Auto) 0.4 Neut % (Auto) 55.2 Lymph % (Auto) 22.7 [place] % (Auto) 15.5 H Eos % (Auto) 5.5 H Baso % (Auto) 0.7 Lymph # (Auto) 1.03 [place] # (Auto) 0.7 H Eos # (Auto) 0.3 Baso # (Auto) 0.0 Abs Immat Gran (auto) 0.02 Absolute Neuts (auto) 2.5 Absolute Nucleated RBC 0.000 Nucleated RBC % 0.0 PT 18.0 H D INR 1.5 Sodium 132 L Potassium 4.4 Chloride 98 Carbon Dioxide 28 Anion Gap 6 BUN 68 H Creatinine 8.80 H Estim Creat Clear Calc 11 Estimated GFR 6 L Glucose 149 H POC Capillary Glucose 337 H 348 H Lactic Acid Calcium 8.5 Magnesium 2.1 Total Bilirubin 0.6 AST 37 ALT 35 Alkaline Phosphatase 81 Total Protein 6.0 L Albumin 3.4 L Preliminary micro results at discharge 07/30/24 08:57 Blood Culture - Preliminary Blood 07/30/24 09:06 Blood Culture - Preliminary Blood Discharge Plan Discharge Attending physician on discharge: Africa Lizarraga Consulting providers: Cristhian Mi; Angelo Oakes Discharging Clinician: Africa Lizarraga Anticipated Discharge Date/Time: 08/02/24 14:17 Patient Disposition: Home, Self-Care Activity: as tolerated Diet: diabetic Patient Instructions: Antibiotic Form, Heart Failure (DC), Pain Management (DC), Basic Carbohydrate Counting (DC) Patient Language: [place] Stand Alone Forms: General Discharge Information Follow-up/Referrals: Matthew,MD Aditya [Primary Care Provider] - (F/u with PCP in 3-5 days) Discharge Medications: New insulin aspart U-100 [Novolog FlexPen U-100 Insulin] 100 unit/mL (3 mL) insulin pen 5 unit subcut TIDWMEAL Qty: 15 0RF insulin glargine [Lantus Solostar U-100 Insulin] 100 unit/mL (3 mL) insulin pen 10 unit subcut QPM Qty: 15 0RF levofloxacin 500 mg tablet 500 mg PO .q48 7 Days Qty: 3 0RF Continued calcitriol 0.25 mcg Capsule 0.25 mcg PO QAM ergocalciferol (vitamin D2) [Vitamin D2] 50,000 unit Capsule 50,000 unit PO WEEKLY Rx Instructions: on mondays at 0900 nitroglycerin 0.4 mg Tablet, Sublingual 0.4 mg SUBLINGUAL Q5-15M PRN (Reason: Chest Pain) Patient Comments: pt states he needs his prescription renewed insulin lispro [Humalog U-100 Insulin] 100 unit/mL solution 100 unit continuous subcutaneous infusion DAILY MDD 100 Qty: 100 1RF Patient Comments: 35.25 u/day 5a-8p: 1 u/hr 8p-5a: 2.25 u/hr (DME) Omnipod 5 G6 Pods (Gen 5) Cartridge SUBCUT Qty: 45 2RF Rx Instructions: Change every 48 hours Humulin N NPH Insulin KwikPen 100 unit/mL (3 mL) insulin pen 10 unit subcut DAILY PRN (Reason: if insulin pump malfunction; before dialysis) Qty: 15 1RF levothyroxine 25 mcg tablet 25 mcg PO DAILY Qty: 90 1RF ezetimibe [Zetia] 10 mg Tablet 10 mg PO DAILY cetirizine [All Day Allergy (cetirizine)] 10 mg Tablet 10 mg PO DAILY atorvastatin 80 mg tablet 80 mg PO DAILY albuterol sulfate [ProAir HFA] 90 mcg/actuation HFA aerosol inhaler 1 inh inhalation QID PRN (Reason: shortness of breath or wheezing) Qty: 8.5 0RF gemfibrozil 600 mg tablet 600 mg PO Q12H febuxostat 40 mg tablet 40 mg PO QPM Linzess 72 mcg capsule 72 mcg PO DAILY PRN (Reason: Diarrhea) warfarin 3 mg tablet 3 mg PO DAILY Qty: 30 0RF Rx Instructions: everyday EXCEPT MONDAY omeprazole 20 mg capsule,delayed release(DR/EC) 20 mg PO DAILY cephalexin 500 mg capsule 500 mg PO Q12H Qty: 14 0RF metoprolol succinate 50 mg tablet extended release 24 hr 25 mg PO HS potassium chloride 20 mEq tablet extended release 20 meq PO DAILY PRN (Reason: Cramps) torsemide 100 mg tablet 100 mg PO DAILY icosapent ethyl [Vascepa] 1 gram capsule 1 g PO Q12H moxifloxacin 0.5 % drops 1 drp LEFT EYE QID Patient Comments: pt lost bottle; will refill once available warfarin 3 mg tablet 1.5 mg PO WEEKLY Rx Instructions: on MONDAY amlodipine 10 mg tablet 10 mg PO HS Gvoke HypoPen 2-Pack 1 mg/0.2 mL auto-injector See Rx Instructions .ROUTE .COMPLEX PRN (Reason: Hypoglycemia) Rx Instructions: INJECT 1 MG(0.2 ML) UNDER THE SKIN ONCE A SINGLE DOSE, MAY REPEAT ONCE AFTER 15 MINUTES IF NO RESPONSE calcium acetate(phosphat bind) 667 mg capsule 667 mg PO QID erythromycin 5 mg/gram (0.5 %) ointment 1 applic EACH EYE HS (DME) pen needle, diabetic [BD Lucrecia 2nd Gen Pen Needle] 32 gauge x 5/32 needle See Rx Instructions .ROUTE .COMPLEX Qty: 100 0RF Dose Instruction: TO ADMINISTER INSULIN DIRECTED Rx Instructions: TO ADMINISTER INSULIN DIRECTED Date of admission: 07/31/24 11:45 Primary Care Provider: [facility] Admitting Provider: Anali Hull Attending physician on admission: Anali Hull Condition: Serious
== END 2024-08-02 15:50 | disposition home or self-care (01) | DRG 637 ==
LOC: ANHED 07-30 01:50 → ANHICU 07-30 02:07 → ANH3MED 07-30 16:17
PROVIDERS: Physician Assistant; Student in an Organized Health Care Education/Training Program; Admitting Provider Internal Medicine; Emergency Provider Physician Assistant; PCP Family Medicine; Visit Provider Internal Medicine
DX: E10.10 Type 1 diabetes mellitus with ketoacidosis without coma (principal); J18.9 Pneumonia, unspecified organism; N18.6 End stage renal disease; I13.2 Hypertensive heart and chronic kidney disease with heart failure and with stage 5 chronic kidney disease, or end stage renal disease; I82.531 Chronic embolism and thrombosis of right popliteal vein; N25.81 Secondary hyperparathyroidism of renal origin; I50.9 Heart failure, unspecified; I48.0 Paroxysmal atrial fibrillation; I25.10 Atherosclerotic heart disease of native coronary artery without angina pectoris; E87.5 Hyperkalemia; E10.22 Type 1 diabetes mellitus with diabetic chronic kidney disease; E10.319 Type 1 diabetes mellitus with unspecified diabetic retinopathy without macular edema; E78.5 Hyperlipidemia, unspecified; K21.9 Gastro-esophageal reflux disease without esophagitis; D63.1 Anemia in chronic kidney disease; N25.0 Renal osteodystrophy; M19.90 Unspecified osteoarthritis, unspecified site; G47.33 Obstructive sleep apnea (adult) (pediatric); F41.9 Anxiety disorder, unspecified; Z96.41 Presence of insulin pump (external) (internal); Z95.4 Presence of other heart-valve replacement; Z99.2 Dependence on renal dialysis; Z95.1 Presence of aortocoronary bypass graft; Z79.01 Long term (current) use of anticoagulants; Z95.5 Presence of coronary angioplasty implant and graft
CPT/HCPCS: 36415; 36600; 71045; 80048; 80053; 81001; 82010; 82375; 82728; 82805; 82948; 83036; 83050; 83540; 83550; 83605; 83735; 84100; 85018; 85025; 85610; 85730; 87040; 87086; 87641; 90945; 93005; 96365; 96366; 96375; 99285; A9270; G0378; J1815; J1956; J2270; J3360; J3480; J7030; J7050

== ENCOUNTER 2024-08-11 10:13 | Emergency (ER) | payer MEDICARE, MEDICAID, SELFPAY ==
--- NOTE | ~2024-08-11 | CT_ITS ---
EXAMINATION: CT abdomen pelvis wo con DATE: 08/11/2024 10:45 INDICATION: Left flank pain. Left lower quadrant abdominal pain. TECHNIQUE: Computed tomography (CT) of the abdomen and pelvis was performed without intravenous contr ast. Automated exposure control and iterative reconstruction technique were employed. The dose-length product was 777.03 mGy-cm. COMPARISON: CT abdomen and pelvis 07/16/2024, 01/11/2021 FINDINGS: The lungs demonstrate mild atelectasis. There is a small left pleural effusion. The heart s ize is normal. There are coronary artery calcifications. There are changes of aortic valve replacemen t. No pericardial effusion. The liver and spleen are normal. There are gallstones in the gallbladder, which is normal in size. The pancreas and adrenal glands are normal. There is mild periportal lympha denopathy, likely reactive. The kidneys are normal. There are no dilated loops of bowel. The appendix is not visualized. There is a small volume of ascites. A peritoneal dialysis catheter is noted. Agai n seen is ascites around the catheter in the anterior abdominal wall. There is severe periumbilical e favio. There is mild thoracic and lumbar spondylosis. IMPRESSION: 1. Stable small left pleural effusion. 2. Small volume of ascites with peritoneal dialysis catheter in expected position. Small volume of as cites again seen along the catheter in the anterior abdominal wall. 3. Chronic severe periumbilical edema again seen. Correlate with physical exam for evidence of cellul itis. Reviewed, dictated and finalized at location A. WORKER IMPRESSION: 1. Stable small left pleural effusion. 2. Small volume of ascites with peritoneal dialysis catheter in expected positi on. Small volume of ascites again seen along the catheter in the anterior abdom inal wall. 3. Chronic severe periumbilical edema again seen. Correlate with physical exam for evidence of cellulitis.
[2024-08-11 10:20] VITALS: BP 132/84; PULSE 119; RESP 17; TEMP 36.3; O2SAT 100
[2024-08-11] MEDS: HYDROmorphone HCL INJ (*CRX) 1 MG/ML SYR IV PUSH (10:27)
[2024-08-11] MEDS: ONDANSETRON INJ 4 MG/2 ML VIAL IV PUSH ×2 (10:27→13:32)
[2024-08-11] MEDS: SODIUM CHLORIDE 0.9% IV 500 ML 999 ML IV CONT (10:27)
--- NOTE | 2024-08-11 10:30 | ED_ITS ---
HPI - General Adult General Chief complaint: Urogenital-Male Stated complaint: back pain History of Present Illness HPI narrative: Patient is a 53-year-old male who presents ER with sudden onset left-sided flank pain. Mid back and left lower quadrant. Associated with nausea vomiting. Has history kidney stones. No fevers or chills or sweats. No bloody urine. Patient is a peritoneal dialysis patient that makes a little bit of urine. No alleviating factors that he has noted. patient visibly distressed on arrival. Related Data Home Medications ?Medication ?Instructions ?Recorded ?Confirmed ?Last Taken ?Type calcitriol 0.25 mcg capsule 0.25 mcg PO QAM 06/04/19 07/30/24 07/29/24 History ergocalciferol (vitamin D2) 1,250 50,000 unit PO WEEKLY 06/04/19 07/30/24 07/29/24 History mcg (50,000 unit) capsule (Vitamin D2) nitroglycerin 0.4 mg sublingual 0.4 mg sublingual Q5-15M PRN Chest 06/04/19 07/30/24 05/19/23 16:30 History tablet Pain ezetimibe 10 mg tablet (Zetia) 10 mg PO DAILY 09/09/19 07/30/24 07/29/24 History cetirizine 10 mg tablet (All Day 10 mg PO DAILY 12/26/19 07/30/24 07/29/24 History Allergy (cetirizine)) atorvastatin 80 mg tablet 80 mg PO DAILY 11/26/20 07/30/24 07/29/24 History metoprolol succinate 50 mg 25 mg PO HS 05/20/23 07/30/24 07/28/24 History tablet,extended release 24 hr potassium chloride 20 mEq 20 meq PO DAILY PRN Cramps 05/20/23 07/30/24 05/19/23 10:00 History tablet,extended release febuxostat 40 mg tablet 40 mg PO QPM 07/25/23 07/30/24 07/28/24 History gemfibrozil 600 mg tablet 600 mg PO Q12H 07/25/23 07/30/24 07/29/24 History linaclotide 72 mcg capsule 72 mcg PO DAILY PRN Diarrhea 07/25/23 07/30/24 Unknown History (Linzess) icosapent ethyl 1 gram capsule 1 g PO Q12H 02/16/24 07/30/24 07/29/24 History (Vascepa) torsemide 100 mg tablet 100 mg PO DAILY 02/16/24 07/30/24 07/29/24 History moxifloxacin 0.5 % eye drops 1 drp LEFT EYE QID 05/27/24 07/30/24 05/26/24 History omeprazole 20 mg capsule,delayed 20 mg PO DAILY 06/06/24 07/30/24 07/29/24 History release amlodipine 10 mg tablet 10 mg PO HS 07/30/24 07/30/24 07/28/24 History calcium acetate(phosphat bind) 667 667 mg PO QID 07/30/24 07/30/24 07/29/24 History mg capsule erythromycin 5 mg/gram (0.5 %) eye 1 applic EACH EYE HS 07/30/24 07/30/24 Unknown History ointment glucagon 1 mg/0.2 mL subcutaneous See Rx Instructions .Route 07/30/24 07/30/24 Unknown History auto-injector (Gvoke HypoPen .COMPLEX PRN Hypoglycemia 2-Pack) warfarin 3 mg tablet 1.5 mg PO WEEKLY 07/30/24 07/30/24 07/26/24 History Allergies Allergy/AdvReac Type Severity Reaction Status Date / Time allopurinol Allergy Severe Other Verified 07/30/24 14:28 iodine Allergy Severe Rash Verified 07/30/24 14:28 iohexol (From CONTRAST - CT, Allergy Severe Difficulty Verified 07/30/24 14:28 XRAY) Breathing ticagrelor Allergy Intermediate Rash Verified 07/30/24 14:28 Review of Systems 2 Review of Systems: All systems reviewed & are unremarkable except as noted in HPI and below Constitutional: Constitutional: Reports no additional constitutional complaints ENT: Reports system reviewed and no additional complaints, except as documented Cardiovascular: Cardiovascular: Reports no additional cardiovascular complaints Respiratory: Respiratory: Reports no additional respiratory complaints Gastrointestinal: Gastrointestinal: Reports abdominal pain, Denies diarrhea, Reports nausea and Reports vomiting Genitourinary: Genitourinary: Denies hematuria, Denies dysuria and Denies urinary frequency [facility] Past Medical History Medical History Anemia in chronic kidney disease Anxiety Arthritis Chronic anticoagulation Congestive heart failure Echocardiogram May 2017 EF of 50% with hypokinetic apical, inferior and basal inferior lateral segment, mild enlargement of left atrium. Coronary artery disease History of several stents including complex procedure at [place] w/ stenting of a heavily calcified CX on OM using shockwave treatment. Deep venous thrombosis Chronic right popliteal DVT. Diabetic peripheral neuropathy Diabetic retinopathy End-stage renal disease on peritoneal dialysis Essential hypertension Gastroesophageal reflux disease Gout Hyperlipidemia Insulin dependent diabetes mellitus Obstructive sleep apnea With inconsistent CPAP use. Paroxysmal atrial fibrillation Renal osteodystrophy Right hand dominant Secondary hyperparathyroidism of renal origin Seizure X1 with etiology unknown Type 1 diabetes mellitus Onset around age 13. Surgical History Surgical History History of anterior cruciate ligament surgery (2000) Left knee History of appendectomy (2006) History of arthroscopy of left knee History of bilateral carpal tunnel release Right 05/03/2018. Left 06/02/2018. History of cardiac catheterization 01/21/2021 catheterization at [facility], Dr. Hoover done: Little change from prior catheterization. Patent stents in the RCA and PDA. Previously jailed posterolateral is occluded and development of a 50% stenosis of a branch of om 1. Normal LV function. :August 2019 demonstrated patent stents with 40% stenosis of 1 vessel with no stents or angioplasty performed per patient report. :November 2018 at [facility] - stent x3. :March 2017 demonstrating mild diffuse coronary disease 80% lesion small sub branch of obtuse marginal 1 and 90% stenosis distal RCA into the origin of the PDA with PTCA and stent to the RPDA/distal RCA performed by Dr. Petit. History of cataract extraction With lens implant History of coronary angioplasty with insertion of stent Drug-eluting stents for high-grade OM 99% occlusion 05/2022. History of hernia repair History of open reduction and internal fixation (ORIF) procedure (1982) Left lower extremity fracture. And the right hip pinning when he was in the 8th grade Peritoneal dialysis catheter in place S/P triple vessel bypass Sep 2023; [facility] Family History Family History Father , in his late 60s Acute myocardial infarction Premature coronary artery disease; <65yo CHF (congestive heart failure) Dementia Hypertension S/P triple vessel bypass Mother Lung cancer Hypertension Daughter Celiac disease Social History Social History Social History: Surrogate medical decision maker: Hodan Daigle (daughter) or Lorne Daigle (brother). Code status: Full code. Smoking status: Never smoker Second hand tobacco smoke exposure: No Alcohol intake: never Substance use: never Substance use type: does not use Do You Feel Safe in your Home?: Yes Lack of Transportation: YES Lack of Food: Sometimes True Current Housing: I Have Housing Concerned About Future Housing: No Difficulty Paying Gas/Electric Bills: No Difficulty Paying for Meds: YES Currently Unemployed: No Education: High School Diploma/GED Difficulty w/ Childcare or Family Care: No Living arrangements: alone Additional living arrangements comments: He is single and has 3 children. 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 Spiritual care concerns: No Agree to blood products: Yes Exam 2 Narrative: GENERAL: Uncomfortable-appearing, well-nourished, and in moderate distress. HEAD: Normocephalic, atraumatic. ENT: Mucous membranes moist. CHEST: Clear to auscultation. No respiratory distress. HEART: Regular rate and rhythm. Normal peripheral pulses. ABDOMEN: Soft, TTP LLQ with guarding, nondistended. No cellulitis of abdomen back: No midline tenderness at T or L-spine. There is paraspinal muscle tenderness on left side consistent with patient's pain. EXTREMITIES: Normal range of motion. No edema. SKIN: Warm, dry, no rash. NEURO: Alert and oriented x3. PSYCH: Normal mood and affect. Course Course Emergency Course: Patient informed of labs which are unremarkable. Creatinine is elevated due to dialysis. CT without acute process. No bacteria in urine. Urine has chronic white blood cells with leuk Estrace and previous cultures have not grown out any bacteria. Patient without muscle cramps and spasm. Vital Signs Vital signs: Vital Signs Temperature 97.3 F L 08/11/24 10:20 Pulse Rate 119 H 08/11/24 10:20 Respiratory Rate 17 08/11/24 10:20 Blood Pressure 132/84 08/11/24 10:20 Pulse Oximetry 100 08/11/24 10:20 Temperature 97.3 F L 08/11/24 10:20 Pulse Rate 110 H 08/11/24 13:33 Respiratory Rate 16 08/11/24 13:33 Blood Pressure 99/80 L 08/11/24 13:33 Pulse Oximetry 97 08/11/24 13:33 Medical Decision Making Vital Signs Vital Signs: Vital Signs Temperature 97.3 F L 08/11/24 10:20 Pulse Rate 119 H 08/11/24 10:20 Respiratory Rate 17 08/11/24 10:20 Blood Pressure 132/84 08/11/24 10:20 Pulse Oximetry 100 08/11/24 10:20 Temperature 97.3 F L 08/11/24 10:20 Pulse Rate 110 H 08/11/24 13:33 Respiratory Rate 16 08/11/24 13:33 Blood Pressure 99/80 L 08/11/24 13:33 Pulse Oximetry 97 08/11/24 13:33 Lab Data 08/11/24 10:32 08/11/24 10:32 Labs: Lab Results 08/11/24 08/11/24 Range/Units 10:32 11:22 WBC 3.7 L (4.5-10.0) K/mm3 RBC 3.78 L (4.6-6.20) M/mm3 Hgb 11.7 L (14.0-18.0) g/dL Hct 35.9 L (42.0-52.0) % MCV 95.0 (80-100) fl MCH 31.0 (26-34) pg MCHC 32.6 (32-36) g/dl RDW 14.8 H (11.5-14.5) % Plt Count 176 (150-375) k/mm3 MPV 10.6 H (7.4-10.4) fl Immature Gran % (Auto) 0.3 (0-0.5) % Neut % (Auto) 53.5 (45.5-73.1) % Lymph % (Auto) 26.8 (18.3-44.2) % [place] % (Auto) 14.5 H (2.6-8.5) % Eos % (Auto) 4.4 (0-4.4) % Baso % (Auto) 0.5 (0.2-1.2) % Lymph # (Auto) 0.98 (0.9-3.2) K/mm3 [place] # (Auto) 0.5 (0.1-0.6) K/mm3 Eos # (Auto) 0.2 (0-0.3) K/mm3 Baso # (Auto) 0.0 (0.0-0.1) K/mm3 Abs Immat Gran (auto) 0.01 (0.00-0.031) K/mm3 Absolute Neuts (auto) 2.0 (1.3-6.7) K/mm3 Absolute Nucleated RBC 0.000 (0.0-0.012) K/mm3 Nucleated RBC % 0.0 (0.0-0.2) % PT 22.2 H (11.1-14.7) Seconds INR 1.9 APTT 34.9 (22.3-36.8) Seconds Sodium 136 L (137-145) mmol/L Potassium 4.8 (3.4-5.0) mmol/L Chloride 100 (98-107) mmol/L Carbon Dioxide 27 (22-30) mmol/L Anion Gap 9 (4-12) mmol/L BUN 69 H (9-20) mg/dL Creatinine 8.50 H (0.7-1.3) mg/dL Estim Creat Clear Calc 12 ml/min Estimated GFR 7 L (59 - ) Glucose 151 H (65-110) mg/dL Calcium 8.9 (8.4-10.2) mg/dL Total Bilirubin 0.5 (0.2-1.3) mg/dL AST 38 (17-59) U/L ALT 30 (6-50) U/L Alkaline Phosphatase 73 (38-126) U/L Total Protein 7.0 (6.3-8.2) g/dL Albumin 3.8 (3.5-5.1) g/dL Urine Color Yellow (Yellow) Urine Appearance Cloudy H (Clear) Urine pH 5.5 (5.0-9.0) Ur Specific [place] 1.021 (1.001-1.035) Urine Protein 2+ H (Negative) mg/dL Urine Glucose (UA) 2+ H (Negative) mg/dL Urine Ketones Negative (Negative) mg/dL Ur Blood (Man) 2+ H (Negative) Urine Nitrate Negative (Negative) Urine Bilirubin Negative (Negative) Urine Urobilinogen 0.2 (<2.0) mg/dL Add Ur Microanalysis Reviewed Leukocyte Esterase Rfl 1+ H (Negative) BENJAMIN/UL Urine RBC 3-5 H (0-2) /hpf Urine WBC 11-20 H (0-3) /hpf Ur Squamous Epith Cells Occasional (Few) /hpf Urine Bacteria None seen /hpf Urine Casts 11-20 Discharge Plan Discharge Clinical Impression: Muscle spasm of back Patient Disposition: Home, Self-Care Condition: Stable Instructions: Muscle Spasm (ED) Additional Instructions: Please return to the emergency department if you develop severe pain that is not controlled by pain medications or if you are unable to walk because of pain or weakness. Return to the emergency department immediately if you develop fevers, loss of bowel or bladder control (dribbling of urine or having accidents you wouldn't normally have), inability to urinate, numbness of your genital or anal area, or weakness/numbness of your legs or arms as these could all be signs of a serious medical emergency. Patient Language: Malagasy Prescriptions: New cyclobenzaprine 10 mg tablet 5 - 10 mg PO TID PRN (Reason: muscle spasm) Qty: 10 0RF promethazine 12.5 mg tablet 12.5 mg PO TID Qty: 10 0RF No Action calcitriol 0.25 mcg Capsule 0.25 mcg PO QAM ergocalciferol (vitamin D2) [Vitamin D2] 50,000 unit Capsule 50,000 unit PO WEEKLY Rx Instructions: on mondays at 0900 nitroglycerin 0.4 mg Tablet, Sublingual 0.4 mg SUBLINGUAL Q5-15M PRN (Reason: Chest Pain) Patient Comments: pt states he needs his prescription renewed insulin lispro [Humalog U-100 Insulin] 100 unit/mL solution 100 unit continuous subcutaneous infusion DAILY MDD 100 Qty: 100 1RF Patient Comments: 35.25 u/day 5a-8p: 1 u/hr 8p-5a: 2.25 u/hr (DME) Omnipod 5 G6 Pods (Gen 5) Cartridge SUBCUT Qty: 45 2RF Rx Instructions: Change every 48 hours Humulin N NPH Insulin KwikPen 100 unit/mL (3 mL) insulin pen 10 unit subcut DAILY PRN (Reason: if insulin pump malfunction; before dialysis) Qty: 15 1RF levothyroxine 25 mcg tablet 25 mcg PO DAILY Qty: 90 1RF ezetimibe [Zetia] 10 mg Tablet 10 mg PO DAILY cetirizine [All Day Allergy (cetirizine)] 10 mg Tablet 10 mg PO DAILY atorvastatin 80 mg tablet 80 mg PO DAILY albuterol sulfate [ProAir HFA] 90 mcg/actuation HFA aerosol inhaler 1 inh inhalation QID PRN (Reason: shortness of breath or wheezing) Qty: 8.5 0RF gemfibrozil 600 mg tablet 600 mg PO Q12H febuxostat 40 mg tablet 40 mg PO QPM Linzess 72 mcg capsule 72 mcg PO DAILY PRN (Reason: Diarrhea) warfarin 3 mg tablet 3 mg PO DAILY Qty: 30 0RF Rx Instructions: everyday EXCEPT MONDAY omeprazole 20 mg capsule,delayed release(DR/EC) 20 mg PO DAILY cephalexin 500 mg capsule 500 mg PO Q12H Qty: 14 0RF metoprolol succinate 50 mg tablet extended release 24 hr 25 mg PO HS potassium chloride 20 mEq tablet extended release 20 meq PO DAILY PRN (Reason: Cramps) torsemide 100 mg tablet 100 mg PO DAILY icosapent ethyl [Vascepa] 1 gram capsule 1 g PO Q12H moxifloxacin 0.5 % drops 1 drp LEFT EYE QID Patient Comments: pt lost bottle; will refill once available warfarin 3 mg tablet 1.5 mg PO WEEKLY Rx Instructions: on MONDAY amlodipine 10 mg tablet 10 mg PO HS Gvoke HypoPen 2-Pack 1 mg/0.2 mL auto-injector See Rx Instructions .ROUTE .COMPLEX PRN (Reason: Hypoglycemia) Rx Instructions: INJECT 1 MG(0.2 ML) UNDER THE SKIN ONCE A SINGLE DOSE, MAY REPEAT ONCE AFTER 15 MINUTES IF NO RESPONSE calcium acetate(phosphat bind) 667 mg capsule 667 mg PO QID erythromycin 5 mg/gram (0.5 %) ointment 1 applic EACH EYE HS levofloxacin 500 mg tablet 500 mg PO .q48 7 Days Qty: 3 0RF insulin glargine [Lantus Solostar U-100 Insulin] 100 unit/mL (3 mL) insulin pen 10 unit subcut QPM Qty: 15 0RF insulin aspart U-100 [Novolog FlexPen U-100 Insulin] 100 unit/mL (3 mL) insulin pen 5 unit subcut TIDWMEAL Qty: 15 0RF (DME) pen needle, diabetic [BD Lucrecia 2nd Gen Pen Needle] 32 gauge x 5/32 needle See Rx Instructions .ROUTE .COMPLEX Qty: 100 0RF Dose Instruction: TO ADMINISTER INSULIN DIRECTED Rx Instructions: TO ADMINISTER INSULIN DIRECTED Follow-up/Referrals: Matthew,MD Aditya [Primary Care Provider] - 1 Week
[2024-08-11 10:37] LABS: Basophils Percent Auto 0.5 % (0.2-1.2); Eosinophils Absolute Auto 0.2 K/mm3 (0-0.3); Eosinophils Percent Auto 4.4 % (0-4.4); Hematocrit 35.9 % (42.0-52.0); Hemoglobin 11.7 g/dL (14.0-18.0); Immature Granulocyte Absolute 0.01 K/mm3 (0.00-0.031); Immature Granulocyte Percent A 0.3 % (0-0.5); Lymphocytes Absolute Auto 0.98 K/mm3 (0.9-3.2); Lymphocytes Percent Auto 26.8 % (18.3-44.2); Mean Corpuscular HGB Conc 32.6 g/dl (32-36); Mean Platelet Volume 10.6 fl (7.4-10.4); Monocytes Absolute Auto 0.5 K/mm3 (0.1-0.6); Monocytes Percent Auto 14.5 % (2.6-8.5); Neutrophils Percent Auto 53.5 % (45.5-73.1); Platelet Count Result 176 k/mm3 (150-375); Red Blood Count 3.78 M/mm3 (4.6-6.20); Red Cell Distribution Width 14.8 % (11.5-14.5); White Blood Count 3.7 K/mm3 (4.5-10.0)
[2024-08-11 10:47] LABS: Alanine Aminotransferase 30 U/L (6-50); Albumin Level 3.8 g/dL (3.5-5.1); Alkaline Phosphatase 73 U/L (38-126); Anion Gap 9 mmol/L (4-12); Aspartate Amino Transferase 38 U/L (17-59); Bilirubin,Total 0.5 mg/dL (0.2-1.3); Blood Urea Nitrogen 69 mg/dL (9-20); Calcium 8.9 mg/dL (8.4-10.2); Carbon Dioxide 27 mmol/L (22-30); Chloride 100 mmol/L (98-107); Estimated CRCL calculation 12 ml/min; Estimated Glomerular Filt Rate 7; Glucose 151 mg/dL (65-110); Potassium 4.8 mmol/L (3.4-5.0); Sodium 136 mmol/L (137-145)
[2024-08-11 11:25] VITALS: BP 125/77; PULSE 115; RESP 20
[2024-08-11] MEDS: PROMETHAZINE HCL 25 MG/ML AMPUL 12.5 MG IV PUSH (11:42)
[2024-08-11 11:52] LABS: Add Urine Microscopic? YES; Appearance Urine Cloudy (Clear); Bacteria Urine None Seen /hpf; Bilirubin Urine Negative (Negative); Blood Urine 2+ (Negative); Color Urine Yellow (Yellow); Glucose Urine UA 2+ mg/dL (Negative); Ketones Urine Negative (Negative); Leukocyte Esterase Ur 1+ LEU/UL (Negative); Need Manual Microscopic Reviewed; Nitrate Urine Negative (Negative); Protein Urine 2+ mg/dL (Negative); Specific Grav Ur 1.021 (1.001-1.035); Squamous Epithelial Cell Urine Occasional /hpf (Few); Urobilinogen Urine 0.2 mg/dL (<2.0); pH Urine 5.5 (5.0-9.0)
[2024-08-11 12:05] LABS: INR 1.9; Partial Thromboplastin Time 34.9 Seconds (22.3-36.8); Prothrombin Time 22.2 Seconds (11.1-14.7)
[2024-08-11 13:02] VITALS: BP 123/83; PULSE 111; RESP 18; O2SAT 98
[2024-08-11] MEDS: MORPHINE SULFATE (*CRX) 4 MG/ML INJ IV PUSH (13:32)
[2024-08-11 13:33] VITALS: BP 99/80; PULSE 110; RESP 16; O2SAT 97
[2024-08-11 15:08] VITALS: BP 143/82; PULSE 107; RESP 20; O2SAT 97
--- OUTSIDE RECORDS SUMMARY | 2024-08-18 12:59 | XMS_ITS | Clinical Summary ---
Author Organization [facility] [employer] Address [address] [place] [address] Care Team Providers Care Blueprint Cutter Name Role Phone Aditya Castro Primary Care Provider Unavailab le Source Comments [facility] [employer],non-owned Affiliates and Associated Physician Practices is amultiple site organization consisting of ambulatory clinics and hospital sitesin [place], [place], [place] and [place]. This disclosure is being madepursuant to the Care Everywhere program and may not contain all information available regarding this patient. Last updated 18.[facility] [employer] Allergies Active Allergy Reactions Criticality Noted Date Comments Allopurinol Other High Shuts my kidneys down per patient. Contrast-Iodinated Agents For Ct/Other Rash Medium 11/22/2018 Ticagrelor Rash High 11/22/2018 Medications * Be aware that medications may not be up to date on this document. Alwaysverify current medications with the patient. Medication Sig Dispensed Refills Start Date End Date Status colchicine 0.6 MG tablet Take 0.6 mg by mouth every Monday, Monday & Monday Active gemfibrozil (LOPID) 600 MG tablet Take 600 mg by mouth 2 times daily,before breakfast and supper Active cetirizine (ZYRTEC) 10 MG tablet Take 10 mg by mouth once daily Active calcitriol (ROCALTROL) 0.25 MCG capsule Take 0.25 mcg by mouth once daily Active clopidogrel (PLAVIX) 75 MG tablet Take 75 mg by mouth once daily Active aspirin (ASPIRIN) 81 MG chew tablet Take 1 tablet by mouth once daily 11/24/2018 Active carvedilol (COREG) 25 MG tablet Take 25 mg by mouth 2 times daily with morning and evening meal Active cloNIDine (CATAPRES) 0.1 MG tablet Take 0.1 mg by mouth 2 times daily Active isosorbide mononitrate CR 24hr (IMDUR) 30 MG tablet Take 30 mg by mouth once daily Active isosorbide mononitrate CR 24hr (IMDUR) 60 MG tablet Take 60 mg by mouth once daily Active nitroGLYCERIN (NITROSTAT) 0.4 MG tablet Dissolve 0.4 mg under the tongue as needed for Angina Active terazosin (HYTRIN) 2 MG capsule Take 2 mg by mouth once daily Active febuxostat (ULORIC) 40 MG tablet Take 40 mg by mouth 02/25/2019 Act bianca atorvastatin (LIPITOR) 40 MG tablet Take 40 mg by mouth at bedtime 02/28/2019 Active atorvastatin (LIPITOR) 20 MG tablet Take 40 mg by mouth at bedtime 02/23/2019 Active cyclobenzaprine (FLEXERIL) 10 MG tablet Take 10 mg by mouth every 12 hours as needed 01/25/2019 Active vitamin D, ergocalciferol, (DRISDOL) 17259 units capsule Take 50,000 Units by mouth every 7 days 02/13/2019 Active ferrous sulfate EC (FERROUS SULFATE) 324 (65 Fe) MG tablet Take 324 mg by mouth once daily 02/21/2019 Active furosemide (LASIX) 40 MG tablet Take 80 mg by mouth 2 times daily 03/06/2019 Active hydrALAZINE (APRESOLINE) 100 MG tablet Take 100 mg by mouth 3 times daily 02/16/2019 Active raNITIdine (ZANTAC) 300 MG tablet Take 300 mg by mouth 2 times daily 02/28/2019 Active ranolazine ER 12hr (RANEXA) 500 MG tablet Take 500 mg by mouth every 12 hours 02/20/2019 Active traMADol (ULTRAM) 50 MG tablet Take 50 mg by mouth every 8 hours as needed 11/14/2018 Active ezetimibe (ZETIA) 10 MG tablet Take 10 mg by mouth once daily Active ketoconazole (NIZORAL) 2 % shampoo Apply to affected area once daily 04/23/2019 Active TRUE METRIX BLOOD GLUCOSE TEST test strip 04/17/2019 Active GLUCAGON EMERGENCY injection 04/18/2019 Active fluticasone propionate (FLONASE) 50 MCG/ACT nasal spray Russell 1 spray into each nostril once daily 04/24/2019 Active epoetin (PROCRIT) 97838 UNIT/ML injection Inject subcutaneously every 14 days Active benzonatate (TESSALON) 200 MG capsule Take 1 capsule by mouth every 6 hours as needed 04/18/2019 Active phentermine (IONAMINE) 30 MG capsule Take 30 mg by mouth every 24 hours Active insulin lispro (ADMELOG) 100 UNIT/ML vial Active selenium sulfide (SELSUN) 2.5 % lotionIndications:O ther seborrheic dermatitis APPLY TO FACE, LATHER AND RINSE OFF IN SHOWER AFTER 3 TO 5 MINUTES DIRECTED 120 mL 3 07/20/2020 Active Active Problems Problem Noted Date Diagnosed Date Pre-transplant evaluation for kidney transplant 03/24/2020 Overview (07/15/2020): Images from the original note were not included. Juvenal Daigle 1970 Referring Director Of Architecture: Leandro Reyes Dialysis Info: Type: PD Time: 160 days (11/05/2019) Blood Type: A Body mass index is 37.8 kg/m??. ALERTS Crowning Inspector: Vashti Lizama NP Past Medical History: Diagnosis Date ? ? Anemia ? ? Arthritis ? ? Arthropathy osteo. back and knees see Dr. Norton ? ? CAD (coronary artery disease) ? ? Community acquired pneumonia 2017 [facility] hospitalized with double pneumonia ? ? Congestive heart failure ? ? Coronary artery disease ? ? Diabetes mellitus type 1 teens dx when he was 13. Insulin since he was dx. Insulin pump currently with dexacom. Vashti Lizama NP is observer gravity prospecting. ? ? DM (diabetes mellitus) TYPE 1 ? ? DVT (deep venous thrombosis) 2017 [facility]. ? ? ESRD on peritoneal dialysis ? ? Gout ? ? History of blood transfusion 2017 during admission for SC ? ? HLD (hyperlipidemia) ? ? HTN (hypertension) ? ? Hypercholesteremia 5 years on med ? ? Hypertension 30's on medications. ? ? Kidney disease ? ? Myocardial infarction 2017 [facility]. Stent x1 placed. ? ? Neuropathy feet ? ? Obstructive sleep apnea He is not wearing because it causes congestion makes it harder to breath. ? ? Primary gout 2017 Past Surgical History: Procedure Laterality Date ? ? Appendectomy ? ? Cardiac Catherization ? ? CARDIAC STERNAL PRECAUTION total of 4 stents ? ? Cataract Removal Bilateral ? ? Cholecystectomy ? ? Cholecystectomy, Laparoscopic 25 yrs ago ? ? Femur Fracture Repair ? ? Hernia Repair ? ? HERNIA REPAIR, UMBILICAL 2019 mesh used ? ? IR PERITONEAL TUNNEL CATH PLACE ? ? KNEE CARTILAGE REPAIR Right ? ? PTCA Social History Socioeconomic History ? ? Marital status: Single Spouse name: Not on file ? ? Number of children: Not on file ? ? Years of education: Not on file ? ? Highest education level: Not on file Occupational History ? ? Not on file Social Needs ? ? Financial resource strain: Not on file ? ? Food insecurity Worry: Not on file Inability: Not on file ? ? Transportation needs Medical: Not on file Non-medical: Not on file Tobacco Use ? ? Smoking status: Never Smoker ? ? Smokeless tobacco: Never Used Substance and Sexual Activity ? ? Alcohol use: Not Currently Comment: 35 years ago ? ? Drug use: No ? ? Sexual activity: Not on file Lifestyle ? ? Physical activity Days per week: Not on file Minutes per session: Not on file ? ? Stress: Not on file Relationships ? ? Social connections Talks on phone: Not on file Gets together: Not on file Attends anglican service: Not on file Active member of club or organization: Not on file Attends meetings of clubs or organizations: Not on file Relationship status: Not on file ? ? Intimate partner violence Fear of current or ex partner: Not on file Emotionally abused: Not on file Physically abused: Not on file Forced sexual activity: Not on file Other Topics Concern ? ? Not on file Social History Narrative ? ? Not on file Transplant Surgery Clinic Appt w/: Date: A/P: Nephrology Clinic Appt w/: Date: A/P: Other Consults: Pertinent Previous Committee Presentations: 07/02/2020: Committee Discussion Details: Pt brought to [facility] to discuss his cardiac workup. Team reviewed NM stress completed at OSH on 04/16/2019, LHC completed at OSH on 08/26/2019, and submaximal DSE completed as part of his kidney evaluation for transplant. Per team, no further workup needed at this time. Ok to proceed with evaluation. Labs: 05/14/2020 PTH: 653.3 A1c: 7.7 Glucose: 162 GFR:11 PSA: 0.4 Serologies: negative CMV Igg:positive EBV Igg: positive Varicella: immune MMR: +++ Toxo: <3.0 Strongyloides: 0.2 Albumin: 3.7 Tox Screen: negative PRA: Class 1 Class 2 ECHO/DSE: 05/14/2020 Summary Left ventricular systolic function is hyperdynamic with an ejection fraction by visual estimate of 75%. Left ventricular segmental wall motion is normal. The left ventricular diastolic function is normal, consistent with normal left ventricle filling pressures There is mild calcific aortic stenosis with a peak velocity of 2.3 m/sec, mean gradient of 12 mmHg, aortic valve area of 2.0 cm??, and an NSDI of 0.48. Stress test was submaximal due to hypertensive response to dobutamine and stopped before protocol maximum dobutamine was administered. Stress echocardiogram is normal. Stress EKG is negative for ischemic changes. No chest pain noted. Tricuspid valve is not well visualized. There is trace tricuspid regurgitation. No pulmonary hypertension, estimated pulmonary arterial systolic pressure is <35 mm Hg. Findings Stress Echo Resting wall motion is hyperdynamic with a resting ejection fraction of 75%. Normal augmentation of all wall segments without evidence of ischemia with pharmacologic stress. Stress ejection fraction estimated at 83%. C: 08/26/2019 NM exercise Stress: 04/16/2019 04/17/2017 CXR: 05/14/2020 FINDINGS/IMPRESSION: ?? There is no pulmonary consolidation, pleural effusion, or pneumothorax. The heart size is normal. ?? CT abd/pelvis non-contrast: 05/14/2020 FINDINGS: No prior study is available for comparison at the time of this dictation. ?? There are minimal vascular calcifications of the abdominal aorta. There are mild atherosclerotic calcifications of the bilateral renal arteries without significant stenosis. There are mild atherosclerotic calcifications of both common iliac arteries and minimal atherosclerotic calcifications of the external iliac arteries. Moderate to severe atherosclerotic calcifications of the internal iliac arteries. There are dense coronary arteries calcifications. Aortic annulus is calcified. ?? The lung bases are clear. Heart size is normal. ?? The liver appears normal. Multiple gallstones are seen in the gallbladder. The intrahepatic and extrahepatic bile ducts are nondilated. The spleen, pancreas, and adrenal glands appear normal. The kidneys are mildly atrophic. Renal vasculature anatomy is conventional. No renal, ureteral, or bladder calculi are visible. There is no evidence of hydronephrosis or hydroureter. ?? A peritoneal dialysis catheter is seen in the left lower quadrant. A small amount of ascites is seen.The distal esophagus and stomach appear normal. The small bowel and colon are normal in caliber without evidence of wall thickening or obstruction. There is no abdominal lymphadenopathy. ?? The urinary bladder is nondistended. The prostate appears normal. There is no pelvic lymphadenopathy. ?? Bone windows demonstrate no suspicious lytic or blastic lesions. The visible osseous structures are intact. Degenerative changes are seen in the lower lumbar spine. There is fat stranding of the umbilicus and the lower back. ? IMPRESSION: ?? 1. Findings of chronic kidney disease with mild atherosclerotic calcifications of the abdominal aorta, common iliac arteries, and external iliac arteries. Moderate to severe atherosclerotic calcifications of the internal iliac arteries. 2. Dense coronary artery calcifications. Aortic annulus calcifications LE arterial doppler: 05/14/2020 The right DMITRY is falsely elevated. The left DMITRY is 1.24. Normal triphasic waveforms in bilateral ankles. Normal bilateral lower extremity arterial physiologic study LE venous doppler: 05/14/2020 Bilateral lower extremities are negative for acute DVT. There is reduced compressibility and reflux noted in one of two right popliteal veins. All other veins are compressible with phasic flow No evidence of DVT in the visualized veins of the bilateral lower extremities by this exam PPD: negative 01/01/2020 Colonoscopy: 03/08/2019 Panorex/Dental: 05/14/2020 FINDINGS: ?? Dental restorations and a bridge are present. Several teeth are absent. There is no evidence of fracture of the mandible. The temporomandibular joints are intact bilaterally. No periapical lucency is seen to indicate abscess. ? IMPRESSION: ?? No periapical abscess identified. ?? SW: 07/14/2020 Clinical Social Work Impression: It is the impression of this social worker school that Juvenal Daigle has several positive factors for Kidney transplant candidacy from a psychosocial perspective. Patient appears to have appropriate knowledge of illness. Patient has sufficient insurance coverage and stable financial situation for post transplant needs. No concerns regarding substance abuse, legal issues, or mental health needs. Patient has adequate support system and appropriate discharge plan. ?? Patient has chickens. SW advised of safety concerns regarding immunosuppressants. ?? 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 Patient appears to be a reasonable candidate for transplant from a psychosocial perspective. ?? -Post transplant arrangement forms are needed prior to being listed. Psychiatric Consult Recommended: No ?? Transplant Ordnance Artificer Helper: Radha Roper LCSW ?? RD:05/14/2020 BMI= 40.0, Class III Obesity. Waist 53 . Pt is considered to be a Marginal candidate for a Kidney Transplant from a Nutrition standpoint. Goal weight is 243 lbs/30 lb wt loss needed/Achieve BMI < 35 to improve candidacy. ? Recommendations/Interventions/Pt Instructed to: ?? Pt given Renal, Kidney meal plan, exercise encouraged, smaller more frequent eating encouraged, menu and snack ideas given along with RD contact. 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 11/22/2018 Family History Medical History Relation Name Comments CAD (Coronary Artery Disease) Father Hyperlipidemia Father Hypertension Father Asthma Neg Hx CVA Neg Hx Cancer - Breast Neg Hx Cancer - Other Neg Hx Cancer - Skin, Melanoma Neg Hx Cancer - Skin, Non Melanoma Neg Hx Eczema Neg Hx Hemophilia Neg Hx Psoriasis Neg Hx Relation Name Status Comments Brother 1 Alive Brother 2 Alive Daughter 1 Alive Daughter 2 Alive Father (Age 60's) Mother Alive Sister Alive Son Alive Social History Tobacco Use Types Packs/Day Years Used Date Smoking Tobacco: Never Smokeless Tobacco: Never Alcohol Use Standard Drinks/Week Comments Not Currently 0 (1 standard drink = 0.6 oz pur e alcohol) 35 years ago Sex and Gender Information Value Date Recorded Sex Assigned at Not on file Gender Identity Not on file Sexual Orientation Not on file Last Filed Vital Signs Vital Sign Reading Time Taken Comments Blood Pressure 140/60 07/13/2020 1:30 PM TELEPHONE LINES REPAIRER Pulse 65 07/13/2020 1:30 PM TELEPHONE LINES REPAIRER Temperature 36.1 ??C (97 ??F) 07/13/2020 1:30 PM TELEPHONE LINES REPAIRER Respiratory Rate 20 07/13/2020 1:30 PM TELEPHONE LINES REPAIRER Oxygen Saturation 95% 07/13/2020 1:30 PM TELEPHONE LINES REPAIRER Inhaled Oxygen Concentration - - Weight 134.3 kg (296 lb) 07/13/2020 1:30 PM TELEPHONE LINES REPAIRER Height 176.5 cm (5' 9.5 ) 07/13/2020 1:30 PM TELEPHONE LINES REPAIRER Body Mass Index 43.08 07/13/2020 1:30 PM TELEPHONE LINES REPAIRER Plan of Treatment Health Maintenance Due Date Last Done Comments JORDEN (AGES 45-75) - COLON CA SCREENING 1970 COLON MONITORING 1968 COLONOSCOPY - COLON CA SCREENING 1968 CT COLONOGRAPHY - COLON CA SCREENING 1970 Colorectal Cancer Screening 1970 FIT - COLON CA SCREENING 1968 FLEX SIG - COLON CA SCREENING 1968 PNEUMOCOCCAL VACCINE (1 of 2 - PCV) 1974 DTAP/TDAP/TD VACCINES (1 - Tdap) 1987 HEPATITIS B VACCINE (1 of 3 - 19+ 3-dose series) 1987 ZOSTER VACCINE (1 of 2) 2018 SCREENING FOR DIABETES 05/14/2023 0, 05/14/2020, 04/26/2019, Additional history exists DEPRESSION SCREENING 08/21/2023 MEDICARE AWV ? CALENDAR YEAR 2023 COVID-19 VACCINE ( - season) 2024 INFLUENZA VACCINE (#1) 2024 05/16/2019, 2015 HEPATITIS C SCREENING Completed 05/14/2020 HIV SCREENING Completed 05/14/2020 HIB VACCINE Aged Out No longer eligi ble based on patient's age to complete this topic HPV VACCINE Aged Out No longer eligi ble based on patient's age to complete this topic MENINGOCOCCAL VACCINE Aged Out No luz marina angelo eligible based on patient's age to complete this topic Procedures Procedure Name Priority Date/Time Associated Diagnosis Comments COMPREHENSIVE METABOLIC PANEL Routine 05/14/2020 10:18 AM CDT Pre-transplant evaluation for kidney transplant HEPATITIS C ANTIBODY Routine 05/14/2020 10:18 AM CDT Pre-transplant evaluation for kidney transplant HIV-1 HIV-2 ANTIGEN/ANTIBODY Routine 05/14/2020 10:18 AM CDT Pre-transplant evaluation for kidney transplant from Last 3 Months or Most Recently Relevant to Health Maintenance Results * HIV-1 HIV-2 ANTIGEN/ANTIBODY (05/14/2020 10:18 AM CDT) HIV Antigen/Antibod y 1 & 2 Non-reacti ve Non-react bianca 05/14/2020 11:49 AM CDT [facility] Comment:Neither HIV-1 p24 An tigen nor HIV-1/HIV-2 Antibodies are detected. Blood BLOOD SPECIMEN / Unknown Lab Venipuncture / Unknown 05/14/2020 10:18 AM CDT 05/14/2020 10:57 AM CDT Glenny Martin MD LAB - HEMATOLOG Y ORDERABLES Performing Organization Address [facility]/State/[facility] Co de Phone Number [facility] [address] [place] [address], [facility] [phone] * (ABNORMAL) COMPREHENSIVE METABOLIC PANEL (05/14/2020 10:18 AM CDT) BUN 65(H) 7 - 26 mg/dL 05/14/2020 11:41 AM [facility] Creatinine 5.6(H) 0.6 - 1.2 mg/dL 05/14/2020 11:41 AM [facility] Sodium 142 136 - 145 mmol/L 05/14/2020 11:41 AM [facility] Potassium 3.7 3.5 - 4.5 mmol/L 05/14/2020 11:41 AM [facility] Chloride 101 98 - 107 mmol/L 05/14/2020 11:41 AM [facility] CO2 28 22 - 29 mmol/L 05/14/2020 11:41 AM [facility] Glucose 162(H) 70 - 115 mg/dL 05/14/2020 11:41 AM [facility] Calcium 9.0 8.4 - 10.2 mg/dL 05/14/2020 11:41 AM [facility] Protein Total 6.9 6.0 - 8.3 g/dL 05/14/2020 11:41 AM [facility] Albumin 3.7 3.4 - 5.0 g/dL 05/14/2020 11:41 AM [facility] Bilirubin Total 0.7 0.2 - 1.2 mg/dL 05/14/2020 11:41 AM [facility] Alkaline Phosphatase 140 40 - 150 Units/L 05/14/2020 11:41 AM [facility] ALT 43 0 - 55 Units/L 05/14/2020 11:41 AM [facility] AST 29 5 - 34 Units/L 05/14/2020 11:41 AM [facility] Anion Gap 17 8 - 18 05/14/2020 11:41 AM [facility] BUN/Creatinine Ratio 12 7 - 23 05/14/2020 11:41 AM [facility] Osmolality Calculated 316(H) 270 - 300 mOsm/kg 05/14/2020 11:41 AM [facility] Albumin/Globulin Ratio 1.2 1.1 - 2.3 05/14/2020 11:41 AM [facility] eGFR 11(L) >60 mL/min/1.7 3 m2 05/14/2020 11:41 AM [facility] Blood BLOOD SPECIMEN / Unknown Lab Venipuncture / Unknown 05/14/2020 10:18 AM CDT 05/14/2020 10:55 AM CDT Glenny Martin MD LAB - CHEMISTRY ORDERABLES Performing Organization Address City/[facility]/ZIP Co de Phone Number [address] [address], [place] [phone] * HEPATITIS C ANTIBODY (05/14/2020 10:18 AM CDT) [facility] Hepatitis C Antibody Non-react bianca Paola-reac tive 05/14/2020 11:49 AM [facility] Comment:Hepatitis C Antibody screen indicates no serologic evidence of past or current infection with Hepatitis C Virus. Patients with unexplained liver disease who are immunocompromised or suspected of having acute Hepatitis C infection may benefit from Nucleic Acid Test (HEATH) for Hepatitis C Viral RNA to confirm Hepatitis C status. Blood BLOOD SPECIMEN / Unknown Lab Venipuncture / Unknown 05/14/2020 10:18 AM CDT 05/14/2020 10:57 AM CDT Glenny Martin MD LAB - CHEMISTRY ORDERABLES [facility] [address] [place] [address], [place] [phone] from Last 3 Months or Most Recently Relevant to Health Maintenance Insurance Payer Benefit Plan / Group Subscriber ID Effective Dates Phone Address Type AETNA MEDICARE ADV AETNA MEDICARE ADV HMO/PPO/PFFS [id number] Effective for all dates [address] [place] [address] [place] naged Care MEDICAID [facility] MEDICAID [facility] Effective for all dates [address] [place] [address] Medicaid AETNA MEDICARE ADV AETNA MEDICARE ADV HMO/PPO/PFFS [id number] Effective for all dates [address] [place] [address] [place] Care MED[place]ID [facility] MEDICAID [facility] Effective for all dates [address] [place] [address] Medicaid AETNA MEDICARE ADV AETNA MEDICARE ADV HMO/PPO/PFFS [id number] Effective for all dates [address] [place] [address] [facility] MEDICAID [facility] Effective for all dates [address] [place] [address] Medicaid MEDICARE S MEDICARE PART B [id number] 08/21/2019-Pres ent [address] [address] [place] [address] Medicare MEDICAID - OUT OF [facility] [place]ICAID - [place] [id number] 08/21/2019-Pres ent [address] [address] [place] [address] Medicaid MEDICARE MEDICARE PART A AND B [id number] 08/21/2019-Pres ent [address] [place] [address] Medicare MEDICA[place] [id number] Effective for all dates [address] [address] [place] [address] Medicaid [place] Advance Directives * Full Code (Latest Code Status on File) Date Activated Date Inactivated Comments 11/22/2018 9:24 AM 11/23/2018 7:55 PM Care Teams Blueprint Cutter Relationship Specialty Start Date End Date Aditya Castro Update Information PCP - General 03/06/19
--- OUTSIDE RECORDS SUMMARY | 2024-08-18 12:59 | XMS_ITS | Referral Summary ---
Author Organization [facility] Address [address] [place] [address] Care Team Providers Care Inverform Machine Operator Name Role Phone Aditya Castro Primary Care Provider Unavailab le Source Comments [facility],non-owned Affiliates and Associated Physician Practices is amultiple site organization consisting of ambulatory clinics and hospital sitesin [place], [place], [place] and [place]. This disclosure is being madepursuant to the Care Everywhere program and may not contain all information available regarding this patient. Last updated 18.[facility] Allergies Active Allergy Reactions Criticality Noted Date [...] needed 01/25/2019 Active vitamin D, ergocalciferol, (DRISDOL) 23972 units capsule Take 50,000 Units by mouth [...] fluticasone propionate (FLONASE) 50 MCG/ACT nasal spray [place] 1 spray into each nostril once daily 04/24/2019 Active epoetin (PROCRIT) 98160 UNIT/ML injection Inject subcutaneously every 14 days [...] were not included. Juvenal Daigle 1970 Referring House Painting Instructor: Leandro Reyes Dialysis Info: Type: PD Time: 160 days (11/05/2019) Blood Type: A Body mass index is 37.8 kg/m??. ALERTS Negative Spotter: Vashti Lizama NP Past Medical History: Diagnosis Date ? ? Anemia ? ? Arthritis ? ? Arthropathy osteo. back and knees see Dr. Norton ? ? CAD (coronary artery disease) ? ? Community acquired pneumonia 2017 [facility] hospitalized with double pneumonia ? ? Congestive heart failure ? ? Coronary artery disease ? ? Diabetes mellitus type 1 teens dx when he was 13. Insulin since he was dx. Insulin pump currently with dexacom. Vashti Lizama NP is system support developer. ? ? DM (diabetes mellitus) TYPE 1 ? ? DVT (deep venous thrombosis) 2017 [facility]. ? ? ESRD on peritoneal dialysis ? ? Gout ? ? History of blood transfusion 2017 during admission for MD ? ? HLD (hyperlipidemia) ? ? HTN (hypertension) ? ? Hypercholesteremia 5 years on med ? ? Hypertension 30's on medications. ? ? Kidney disease ? ? Myocardial infarction 2017 [facility]. Stent x1 placed. ? ? Neuropathy feet [...] file Gets together: Not on file Attends anabaptist service: Not on file Active member of [...] 07/02/2020: Committee Discussion Details: Pt brought to [facility] to discuss his cardiac workup. Team reviewed [...] It is the impression of this social professionals that Juvenal Daigle has several positive factors [...] of safety concerns regarding immunosuppressants. ?? Plan: painting worker to provide supportive services as needed. Patient appears to be a reasonable candidate for transplant from a psychosocial perspective. ?? -Post transplant arrangement forms are needed prior to being listed. Psychiatric Consult Recommended: No ?? Transplant Dehydrogenation Operator: Radha Roper LCSW ?? RD:05/14/2020 BMI= 40.0, [...] ative heart with stable angina pectoris 11/22/2018 Social History Tobacco Use Types Packs/Day Years [...] Comments Blood Pressure 140/60 07/13/2020 1:30 PM COMPTOMETER OPERATOR Pulse 65 07/13/2020 1:30 PM COMPTOMETER OPERATOR Temperature 36.1 ??C (97 ??F) 07/13/2020 1:30 PM COMPTOMETER OPERATOR Respiratory Rate 20 07/13/2020 1:30 PM COMPTOMETER OPERATOR Oxygen Saturation 95% 07/13/2020 1:30 PM COMPTOMETER OPERATOR Inhaled Oxygen Concentration - - Weight 134.3 kg (296 lb) 07/13/2020 1:30 PM COMPTOMETER OPERATOR Height 176.5 cm (5' 9.5 ) 07/13/2020 1:30 PM COMPTOMETER OPERATOR Body Mass Index 43.08 07/13/2020 1:30 PM COMPTOMETER OPERATOR Plan of Treatment Not on file Procedures Procedure Name Priority Date/Time Associated Diagnosis [...] ve Non-react bianca 05/14/2020 11:49 AM CDT [facility] Comment:Neither HIV-1 p24 An tigen nor HIV-1/HIV-2 Antibodies are detected. Blood BLOOD SPECIMEN / Unknown Lab Venipuncture / Unknown 05/14/2020 10:18 AM CDT 05/14/2020 10:57 AM CDT Glenny Martin MD LAB - HEMATOLOG Y ORDERABLES [facility] [address] [place] [address], [facility] [phone] * (ABNORMAL) COMPREHENSIVE METABOLIC PANEL (05/14/2020 10:18 AM CDT) Pathologist [facility] [place] BUN 65(H) 7 - 26 mg/dL 05/14/2020 11:41 AM [facility] Creatinine 5.6(H) 0.6 - 1.2 mg/dL 05/14/2020 11:41 AM [facility] Sodium 142 136 - 145 mmol/L 05/14/2020 11:41 AM [facility] Potassium 3.7 3.5 - 4.5 mmol/L 05/14/2020 11:41 AM [facility] Chloride 101 98 - 107 mmol/L 05/14/2020 11:41 AM [facility] CO2 28 22 - 29 mmol/L 05/14/2020 11:41 AM [facility] Glucose 162(H) 70 - 115 mg/dL 05/14/2020 11:41 AM [facility] Calcium 9.0 8.4 - 10.2 mg/dL 05/14/2020 11:41 AM [facility] Protein Total 6.9 6.0 - 8.3 g/dL 05/14/2020 11:41 AM [facility] Albumin 3.7 3.4 - 5.0 g/dL 05/14/2020 11:41 AM [facility] Bilirubin Total 0.7 0.2 - 1.2 mg/dL 05/14/2020 11:41 AM [facility] Alkaline Phosphatase 140 40 - 150 Units/L 05/14/2020 11:41 AM [facility] ALT 43 0 - 55 Units/L 05/14/2020 11:41 AM [facility] AST 29 5 - 34 Units/L 05/14/2020 11:41 AM [facility] Anion Gap 17 8 - 18 05/14/2020 11:41 AM [facility] BUN/Creatinine Ratio 12 7 - 23 05/14/2020 11:41 AM [facility] Osmolality Calculated 316(H) 270 - 300 mOsm/kg 05/14/2020 11:41 AM [facility] Albumin/Globulin Ratio 1.2 1.1 - 2.3 05/14/2020 11:41 AM [facility] eGFR 11(L) >60 mL/min/1.7 3 m2 05/14/2020 11:41 AM [facility] Blood BLOOD SPECIMEN / Unknown Lab Venipuncture / Unknown 05/14/2020 10:18 AM CDT 05/14/2020 10:55 AM [facility] Glenny Martin MD LAB - CHEMISTRY ORDERABLES [facility] [address] [place] [address], [facility] [phone] * HEPATITIS C ANTIBODY (05/14/2020 10:18 AM CDT) Hepatitis C Antibody Non-react bianca Non-reac tive 05/14/2020 11:49 AM [facility] Comment:Hepatitis C Antibody screen indicates no [...] Glenny Martin MD LAB - CHEMISTRY ORDERABLES [facility] [address] [place] [address], [facility] [phone] from Last 3 Months or Most Recently Relevant to Health Maintenance Advance Directives * Full Code (Latest Code Status on File) Date Activated Date Inactivated Comments 11/22/2018 9:24 AM 11/23/2018 7:55 PM Care Teams Inverform Machine Operator Relationship Specialty Start Date End Date Aditya Castro Update Information PCP - General 03/06/19
--- OUTSIDE RECORDS SUMMARY | 2024-08-18 12:59 | XMS_ITS ---
Author Organization [facility]) Address [address] [place] [id number] Care Team Providers Care Can Technician Name Role Phone Unavailable Unavailable Unavailable Allergies, Adverse Reactions, Alerts Allergy Name Allergy Type Status Severity Reaction(s) Onset Date Inactive Date Treating Clinician Comments Brilinta Allergy Active Moderate Allergy 2022-05 05:00:0 0 Contrast Media Ready-Box Allergy Active Moderate Allergy 2022-05 05:00:0 0 Medications Ordered Medication Name Filled Medication Name Start Date Stop Date Current Medication? Ordering Clinician Indication Dosage Frequency Signature (SIG) Comments Components amLODIPine Benzoate 2023-08 2 21:12: 28 Yes Number of Repeats Allowed: Frequency: One time a day Venofer 2023-08 004 16:16: 09 Yes [id number] Number of Repeats Allowed: Frequency: Two times a monthDoses Ordered: Maintenanc e Dose 200 Milligram Route: Intravenou s Mircera 8 18:20: 46 Yes [id number] Number of Repeats Allowed: Frequency: CORRINE dosing, every three to four weeks Warfarin Sodium 11-05 20:57: 11 Yes Number of Repeats Allowed: Frequency: Every evening Omeprazole 11-05 20:56: 14 Yes Number of Repeats Allowed: Frequency: One time a day Metoprolol Tartrate 11-05 20:54: 32 Yes Number of Repeats Allowed: Frequency: Two times a day Insulin Pump Accessories 11-05 20:50: 03 Yes Number of Repeats Allowed: Frequency: Three times a day Levothyroxi ne Sodium 11-05 20:47: 05 Yes Number of Repeats Allowed: Frequency: One time a day Cetirizine HCl 11-05 20:41: 00 Yes Number of Repeats Allowed: Frequency: As needed Aspirin 81 11-05 20:39: 02 Yes Number of Repeats Allowed: Frequency: One time a day Amiodarone HCl 11-05 20:37: 54 Yes Number of Repeats Allowed: Frequency: One time a day Gemfibrozil 2022-08 17:56: 44 Yes Number of Repeats Allowed: Frequency: Two times a day Losartan Potassium 2022-08 17:55: 56 Yes Number of Repeats Allowed: Frequency: One time a day Linzess 2022-08 17:52: 41 Yes Number of Repeats Allowed: Frequency: One time a day NIFEdipine ER 2022-08 010 14:47: 56 Yes Number of Repeats Allowed: Frequency: One time a day Furosemide 2021-08 16:59: 46 Yes Number of Repeats Allowed: Frequency: Two times a day MiraLax 2021-08 16:57: 12 Yes Number of Repeats Allowed: Frequency: As needed Atorvastati n Calcium 9-13 05:00: 00 Yes Number of Repeats Allowed: Frequency: One time a day Vascepa 5-04 05:00: 00 Yes Number of Repeats Allowed: Frequency: One time a day Colace 2020-08 012 05:00: 00 Yes Number of Repeats Allowed: Frequency: Two times a day Hannah-Eliz 2020-08 0-12 05:00: 00 Yes Number of Repeats Allowed: Frequency: One time a day NovoLOG 0 8-21 05:00: 00 Yes Number of Repeats Allowed: Frequency: With meals Famotidine 5-11 05:00: 00 Yes Number of Repeats Allowed: Frequency: One time a day Cefdinir 0 3-27 05:00: 00 Yes Number of Repeats Allowed: Frequency: As needed Gentamicin Sulfate 327 05:00: 00 Yes Number of Repeats Allowed: Frequency: One time a day Vitamin D2 324 05:00: 00 Yes Number of Repeats Allowed: Frequency: One time a week Clopidogrel Bisulfate 324 05:00: 00 Yes Number of Repeats Allowed: Frequency: One time a day Ranolazine ER 24 05:00: 00 Yes Number of Repeats Allowed: Frequency: Every twelve hours Uloric 11-11 05:00: 00 Yes Number of Repeats Allowed: Frequency: One time a day Ezetimibe 11-11 05:00: 00 Yes Number of Repeats Allowed: Frequency: One time a day Colchicine 11-11 05:00: 00 Yes Number of Repeats Allowed: Frequency: Three times a week on Monday, Monday and Monday Nitroglycer in 11-11 05:00: 00 Yes Number of Repeats Allowed: Frequency: As needed Problems This patient has no known problems. Procedures Procedure Date / Time Performed Performing Clinician Jennifer ce Details PD Catheter 2019-10-23 06:00:00 Access Site Lower Quadrant (Left ) Access Use Start Date 2019-11-05 05:00:0 0 DIALYSIS TREATMENT INFORMATION Conventional Hemodialysis Date Type Treatment Start Date Treatment End Date Pre-Treatment Vitals Post-Treatment Vitals Weight Gain BFR DFR Actual UF Dialysis Access 2024 [facility] August 16, 2024 [facility] August 15, 2024 [facility] August 14, 2024 [facility] August 13, 2024 [facility] August 12, 2024 [facility] August 11[facility] 2024 [facility] August 10, 2024 [facility] August 09[facility] 2024 [facility] August 08, 2024 [facility] August 07, 2024 [facility] August 06, 2024 [facility] August 05, 2024 [facility] BP Sitting (Pre-Dialysis) 109/67 mmHg Sitting Heart Rate Pre-Dialysis 116 BPM Temperature Pre-Dialysis 98.4 degF Weight Pre-Dialysis 123.2 kg August 05, 2024 [facility] August 04, 2024 [facility] August 03, 2024 [facility] August 02, 2024 [facility] August 01, 2024 [facility] July 31, 2024 [facility] July 30, 2024 [facility] July 29[facility] 2024 [facility] July 28, 2024 [facility] July 27, 2024 [facility] July 26, 2024 [facility] July 25, 2024 [facility] July 24, 2024 [facility] BP Sitting (Pre-Dialysis) 124/80 mmHg BP Standing (Pre-Dialysis) 108/69 mmHg Sitting Heart Rate Pre-Dialysis 120 BPM Standing Heart Rate Pre-Dialysis 122 BPM Temperature Pre-Dialysis 97.8 degF Weight Pre-Dialysis 121.8 kg July 24, 2024 [facility] July 23, 2024 [facility] July 22, 2024 [facility] July 21, 2024 [facility] July 20, 2024 [facility] July 19, 2024 [facility] July 18, 2024 [facility] July 17, 2024 [facility] July 16, 2024 [facility] July 15, 2024 [facility] July 14, 2024 [facility] July 13, 2024 [facility] July 12, 2024 [facility] July 11, 2024 [facility] July 10, 2024 [facility] BP Sitting (Pre-Dialysis) 179/103 mmH g Sitting Heart Rate Pre-Dialysis 74 BPM Temperature Pre-Dialysis 97 degF Weight Pre-Dialysis 119 kg July 10, 2024 [facility] July 09, 2024 [facility] July 08, 2024 [facility] July 07, 2024 [facility] July 06, 2024 [facility] July 05, 2024 [facility] July 04, 2024 [facility] July 03, 2024 [facility] July 02, 2024 [facility] BP Sitting (Pre-Dialysis) 177/81 mmHg BP Standing (Pre-Dialysis) 170/80 mmHg Sitting Heart Rate Pre-Dialysis 65 BPM Standing Heart Rate Pre-Dialysis 64 BPM Temperature Pre-Dialysis 97.5 degF Weight Pre-Dialysis 119 kg July 02, 2024 [facility] July 01, 2024 [facility] June 30, 2024 [facility] June 29, 2024 [facility] June 28, 2024 [facility] June 27, 2024 [facility] June 26, 2024 [facility] BP Sitting (Pre-Dialysis) 177/81 mmHg BP Standing (Pre-Dialysis) 172/82 mmHg Sitting Heart Rate Pre-Dialysis 65 BPM Standing Heart Rate Pre-Dialysis 66 BPM Temperature Pre-Dialysis 97.5 degF Weight Pre-Dialysis 119 kg June 26, 2024 [facility] June 25, 2024 [facility] June 24, 2024 [facility] June 23, 2024 [facility] June 22, 2024 [facility] June 21, 2024 [facility] June 20, 2024 [facility] June 19, 2024 [facility] June 18, 2024 [facility] June 17, 2024 [facility] June 16, 2024 [facility] June 15, 2024 [facility] June 14, 2024 [facility] June 13, 2024 [facility] June 12, 2024 [facility] June 11, 2024 [facility] BP Sitting (Pre-Dialysis) 152/83 mmHg BP Standing (Pre-Dialysis) 166/80 mmHg Sitting Heart Rate Pre-Dialysis 67 BPM Standing Heart Rate Pre-Dialysis 68 BPM Temperature Pre-Dialysis 98.1 degF Weight Pre-Dialysis 120 kg June 11, 2024 [facility] June 10, 2024 [facility] June 09, 2024 [facility] June 08, 2024 [facility] June 07, 2024 [facility] June 06, 2024 [facility] June 05, 2024 [facility] June 04, 2024 [facility] June 03, 2024 [facility] June 02, 2024 [facility] June 01, 2024 [facility] May 31, 2024 [facility] May 30, 2024 [facility] May 27, 2024 [facility] May 26, 2024 [facility] May 25, 2024 [facility] May 24, 2024 [facility] May 23, 2024 [facility] May 22, 2024 [facility] BP Sitting (Pre-Dialysis) 155/75 mmHg BP Standing (Pre-Dialysis) 154/79 mmHg Sitting Heart Rate Pre-Dialysis 59 BPM Standing Heart Rate Pre-Dialysis 62 BPM Temperature Pre-Dialysis 98.1 degF Weight Pre-Dialysis 119 kg May 22, 2024 [facility] May 21, 2024 [facility] May 20, 2024 [facility] May 19, 2024 [facility] May 18, 2024 [facility] May 17, 2024 [facility] May 16, 2024 [facility] May 15, 2024 [facility] May 14, 2024 [facility] May 13, 2024 [facility] May 12, 2024 [facility] May 11, 2024 [facility] May 10, 2024 [facility] May 09, 2024 [facility] May 08, 2024 [facility] May 07, 2024 [facility] May 06, 2024 [facility] May 05, 2024 [facility] May 04, 2024 [facility] May 03, 2024 [facility] May 02, 2024 [facility] May 01, 2024 [facility] April 30, 2024 [facility] April 30, 2024 [facility] April 29, 2024 [facility] April 28, 2024 [facility] April 27, 2024 [facility] April 26, 2024 [facility] April 25, 2024 [facility] April 24, 2024 [facility] BP Sitting (Pre-Dialysis) 165/73 mmH g BP Standing (Pre-Dialysis) 165/74 mmHg Sitting Heart Rate Pre-Dialysis 68 BPM Standing Heart Rate Pre-Dialysis 69 BPM Temperature Pre-Dialysis 98 degF Weight Pre-Dialysis 119 kg April 24, 2024 [facility] April 23, 2024 [facility] April 22, 2024 [facility] April 21, 2024 [facility] April 20, 2024 [facility] April 19, 2024 [facility] April 18, 2024 [facility] April 17, 2024 [facility] April 16, 2024 [facility] April 15, 2024 [facility] April 14, 2024 [facility] April 13, 2024 [facility] April 12, 2024 [facility] April 11, 2024 [facility] April 10, 2024 [facility] April 09, 2024 [facility] April 08, 2024 [facility] April 07, 2024 [facility] April 06, 2024 [facility] April 05, 2024 [facility] April 04, 2024 [facility] April 03, 2024 [facility] April 02, 2024 [facility] BP Sitting (Pre-Dialysis) 181/81 mmHg Sitting Heart Rate Pre-Dialysis 79 BPM Temperature Pre-Dialysis 98 degF Weight Pre-Dialysis 118.1 kg April 02, 2024 [facility] April 01, 2024 [facility] March 31, 2024 [facility] March 30, 2024 [facility] March 29, 2024 [facility] March 28, 2024 [facility] March 27, 2024 [facility] BP Sitting (Pre-Dialysis) 156/70 mmHg BP Standing (Pre-Dialysis) 140/70 mmHg Sitting Heart Rate Pre-Dialysis 63 BPM Standing Heart Rate Pre-Dialysis 69 BPM Temperature Pre-Dialysis 97.8 degF Weight Pre-Dialysis 119 kg March 27, 2024 [facility] March 26, 2024 [facility] March 25, 2024 [facility] March 24, 2024 [facility] March 23, 2024 [facility] March 22, 2024 [facility] March 21, 2024 [facility] March 20, 2024 [facility] March 19, 2024 [facility] March 18, 2024 [facility] March 17, 2024 [facility] March 16, 2024 [facility] March 15, 2024 [facility] March 14, 2024 [facility] March 13, 2024 [facility] March 12, 2024 [facility] March 11, 2024 [facility] March 10, 2024 [facility] March 09, 2024 [facility] March 08, 2024 [facility] March 07, 2024 [facility] March 06, 2024 [facility] March 05, 2024 [facility] March 04, 2024 [facility] March 03, 2024 [facility] March 02, 2024 [facility] February 26, 2024 [facility] February 25, 2024 [facility] February 24, 2024 [facility] February 23, 2024 [facility] February 22, 2024 [facility] February 21, 2024 [facility] February 20, 2024 [facility] February 19, 2024 [facility] BP Sitting (Pre-Dialysis) 168/67 mmHg BP Standing (Pre-Dialysis) 175/75 mmHg Sitting Heart Rate Pre-Dialysis 61 BPM Standing Heart Rate Pre-Dialysis 72 BPM Temperature Pre-Dialysis 97.6 degF Weight Pre-Dialysis 119 kg February 19, 2024 [facility] February 18, 2024 [facility] February 17, 2024 [facility] February 16, 2024 [facility] February 15, 2024 [facility] February 14, 2024 [facility] February 13, 2024 [facility] February 12, 2024 [facility] February 11, 2024 [facility] February 10, 2024 [facility] February 09, 2024 [facility] February 08, 2024 [facility] February 07, 2024 [facility] February 06, 2024 [facility] February 05, 2024 [facility] February 04, 2024 [facility] February 03, 2024 [facility] February 02, 2024 [facility] February 01, 2024 [facility] January 31, 2024 [facility] January 30, 2024 [facility] BP Sitting (Pre-Dialysis) 160/78 mmHg BP Standing (Pre-Dialysis) 164/60 mmHg Sitting Heart Rate Pre-Dialysis 60 BPM Standing Heart Rate Pre-Dialysis 66 BPM Temperature Pre-Dialysis 98.2 degF Weight Pre-Dialysis 119.5 kg January 30, 2024 [facility] January 29, 2024 [facility] January 28, 2024 [facility] January 27, 2024 [facility] January 26, 2024 [facility] January 25, 2024 [facility] January 24, 2024 [facility] BP Sitting (Pre-Dialysis) 180/84 mmHg BP Standing (Pre-Dialysis) 159/83 mmHg Sitting Heart Rate Pre-Dialysis 67 BPM Standing Heart Rate Pre-Dialysis 68 BPM Temperature Pre-Dialysis 98.4 degF Weight Pre-Dialysis 118.6 kg January 24, 2024 [facility] January 23, 2024 [facility] January 22, 2024 [facility] January 21, 2024 [facility] January 20, 2024 [facility] January 19, 2024 [facility] January 18, 2024 [facility] January 17, 2024 [facility] January 16, 2024 [facility] January 15, 2024 [facility] January 14, 2024 [facility] January 13, 2024 [facility] January 12, 2024 [facility] January 11, 2024 [facility] January 10, 2024 [facility] January 09, 2024 [facility] January 08, 2024 [facility] January 07, 2024 [facility] January 06, 2024 [facility] January 05, 2024 [facility] January 04, 2024 [facility] January 03, 2024 [facility] January 02, 2024 [facility] BP Sitting (Pre-Dialysis) 182/74 mmHg BP Standing (Pre-Dialysis) 174/75 mmHg Sitting Heart Rate Pre-Dialysis 77 BPM Standing Heart Rate Pre-Dialysis 83 BPM Temperature Pre-Dialysis 97.5 degF Weight Pre-Dialysis 118.6 kg January 02, 2024 [facility] January 01, 2024 [facility] December 31, 2023 [facility] December 30, 2023 [facility] December 29, 2023 [facility] December 28, 2023 [facility] December 27, 2023 [facility] December 26, 2023 [facility] December 25, 2023 [facility] December 24, 2023 [facility] December 23, 2023 [facility] December 22, 2023 [facility] December 21, 2023 [facility] December 20, 2023 [facility] BP Sitting (Pre-Dialysis) 169/86 mmHg BP Standing (Pre-Dialysis) 161/79 mmHg Sitting Heart Rate Pre-Dialysis 71 BPM Standing Heart Rate Pre-Dialysis 72 BPM Temperature Pre-Dialysis 97.6 degF Weight Pre-Dialysis 118.1 kg December 20, 2023 [facility] December 19, 2023 [facility] December 18, 2023 [facility] December 17, 2023 [facility] December 16, 2023 [facility] December 15, 2023 [facility] December 14, 2023 [facility] December 13, 2023 [facility] December 12, 2023 [facility] December 11, 2023 [facility] December 10, 2023 [facility] December 09, 2023 [facility] December 08, 2023 [facility] December 07, 2023 [facility] December 06, 2023 [facility] December 05, 2023 [facility] December 04, 2023 [facility] December 03, 2023 [facility] December 02, 2023 [facility] December 01, 2023 [facility] November 30, 2023 [facility] November 29, 2023 [facility] November 28, 2023 [facility] November 27, 2023 [facility] BP Sitting (Pre-Dialysis) 168/76 mmHg BP Standing (Pre-Dialysis) 167/70 mmHg Sitting Heart Rate Pre-Dialysis 80 BPM Standing Heart Rate Pre-Dialysis 80 BPM Temperature Pre-Dialysis 97.7 degF Weight Pre-Dialysis 117.2 kg November 27, 2023 [facility] November 26, 2023 [facility] November 25, 2023 [facility] November 24, 2023 [facility] BP Sitting (Pre-Dialysis) 175/77 mmHg Sitting Heart Rate Pre-Dialysis 74 BPM Temperature Pre-Dialysis 97.6 degF Weight Pre-Dialysis 121.4 kg November 24, 2023 [facility] November 23, 2023 [facility] November 22, 2023 [facility] November 21, 2023 [facility] November 20, 2023 [facility] November 19, 2023 [facility] November 18, 2023 [facility] November 17, 2023 [facility] November 16, 2023 [facility] November 15, 2023 [facility] November 14, 2023 [facility] November 13, 2023 [facility] November 12, 2023 [facility] November 11, 2023 [facility] November 10, 2023 [facility] BP Sitting (Pre-Dialysis) 141/82 mmHg Sitting Heart Rate Pre-Dialysis 90 BPM Temperature Pre-Dialysis 98 degF Weight Pre-Dialysis 118.6 kg November 10, 2023 [facility] November 09, 2023 [facility] November 08, 2023 [facility] November 07, 2023 [facility] November 06, 2023 [facility] November 05, 2023 [facility] November 04, 2023 [facility] November 03, 2023 [facility] October 08, 2023 [facility] October 07, 2023 [facility] October 06, 2023 [facility] October 05, 2023 [facility] October 04, 2023 [facility] October 03, 2023 [facility] BP Sitting (Pre-Dialysis) 156/67 mmHg BP Standing (Pre-Dialysis) 144/75 mmHg Sitting Heart Rate Pre-Dialysis 74 BPM Standing Heart Rate Pre-Dialysis 81 BPM Temperature Pre-Dialysis 98.1 degF Weight Pre-Dialysis 115.9 kg October 03, 2023 [facility] October 02, 2023 [facility] October 01, 2023 [facility] September 30, 2023 [facility] September 29, 2023 [facility] September 28, 2023 [facility] September 27, 2023 [facility] September 26, 2023 [facility] September 25, 2023 [facility] September 24, 2023 [facility] September 23, 2023 [facility] September 22, 2023 [facility] September 21, 2023 [facility] BP Sitting (Pre-Dialysis) 114/65 mmHg BP Standing (Pre-Dialysis) 97/60 mmHg Sitting Heart Rate Pre-Dialysis 69 BPM Standing Heart Rate Pre-Dialysis 69 BPM Temperature Pre-Dialysis 98 degF Weight Pre-Dialysis 115.9 kg September 21, 2023 [facility] September 19, 2023 [facility] September 18, 2023 [facility] September 17, 2023 [facility] September 16, 2023 [facility] September 15, 2023 [facility] September 14, 2023 [facility] September 13, 2023 [facility] September 12, 2023 [facility] September 11, 2023 [facility] September 10, 2023 [facility] September 09, 2023 [facility] September 08, 2023 [facility] September 07, 2023 [facility] September 06, 2023 [facility] September 05, 2023 [facility] September 04, 2023 [facility] September 03, 2023 [facility] September 02, 2023 [facility] September 01, 2023 [facility] August 31, 2023 [facility] August 30, 2023 [facility] August 29, 2023 [facility] BP Sitting (Pre-Dialysis) 132/81 mmHg BP Standing (Pre-Dialysis) 122/65 mmHg Sitting Heart Rate Pre-Dialysis 71 BPM Standing Heart Rate Pre-Dialysis 73 BPM Temperature Pre-Dialysis 98 degF Weight Pre-Dialysis 115 kg August 29, 2023 [facility] August 28, 2023 [facility] August 27, 2023 [facility] August 26, 2023 [facility] August 25, 2023 [facility] August 24, 2023 [facility] August 23, 2023 [facility] August 22, 2023 [facility] August 21, 2023 [facility] August 20, 2023 [facility] August 19, 2023 [facility] August 18, 2023 [facility] 2023 [facility] August 16, 2023 [facility] August 15, 2023 [facility] August 14, 2023 [facility] August 13, 2023 [facility] August 12, 2023 [facility] August 11, 2023 [facility] August 10, 2023 [facility] August 09, 2023 [facility] August 08, 2023 [facility] August 07, 2023 [facility] August 06, 2023 [facility] August 05, 2023 [facility] August 04, 2023 [facility] August 03, 2023 [facility] August 02, 2023 [facility] August 01, 2023 [facility] BP Sitting (Pre-Dialysis) 165/76 mmHg BP Standing (Pre-Dialysis) 140/82 mmHg Sitting Heart Rate Pre-Dialysis 100 BPM Standing Heart Rate Pre-Dialysis 119 BPM Temperature Pre-Dialysis 97.7 degF Weight Pre-Dialysis 119 kg August 01, 2023 [facility] July 31, 2023 [facility] July 30, 2023 [facility] July 29, 2023 [facility] July 28, 2023 [facility] July 27, 2023 [facility] July 25, 2023 [facility] July 24, 2023 [facility] July 23, 2023 [facility] July 22, 2023 [facility] July 21, 2023 [facility] BP Sitting (Pre-Dialysis) 166/79 mmHg BP Standing (Pre-Dialysis) 126/78 mmHg Sitting Heart Rate Pre-Dialysis 78 BPM Standing Heart Rate Pre-Dialysis 75 BPM Temperature Pre-Dialysis 98.1 degF Weight Pre-Dialysis 116.9 kg July 21, 2023 [facility] July 20, 2023 [facility] July 19, 2023 [facility] July 18, 2023 [facility] July 17, 2023 [facility] July 16, 2023 [facility] July 15, 2023 [facility] July 14, 2023 [facility] July 13, 2023 [facility] July 12, 2023 [facility] July 11, 2023 [facility] July 10, 2023 [facility] July 09, 2023 [facility] July 08, 2023 [facility] July 07, 2023 [facility] July 06, 2023 [facility] July 05, 2023 [facility] July 04, 2023 [facility] BP Sitting (Pre-Dialysis) 166/80 mmHg BP Standing (Pre-Dialysis) 157/73 mmHg Sitting Heart Rate Pre-Dialysis 73 BPM Standing Heart Rate Pre-Dialysis 72 BPM Temperature Pre-Dialysis 97.9 degF Weight Pre-Dialysis 122.7 kg July 04, 2023 [facility] July 03, 2023 [facility] July 02, 2023 [facility] July 01, 2023 [facility] June 30, 2023 [facility] June 29, 2023 [facility] June 28, 2023 [facility] June 27, 2023 [facility] June 26, 2023 [facility] June 25, 2023 [facility] June 24, 2023 [facility] June 23, 2023 [facility] June 22, 2023 [facility] June 21, 2023 [facility] BP Sitting (Pre-Dialysis) 110/68 mmHg BP Standing (Pre-Dialysis) 112/65 mmHg Sitting Heart Rate Pre-Dialysis 60 BPM Standing Heart Rate Pre-Dialysis 64 BPM Temperature Pre-Dialysis 98 degF Weight Pre-Dialysis 121.3 kg June 21, 2023 [facility] June 20, 2023 [facility] June 19, 2023 [facility] June 18, 2023 [facility] June 17, 2023 [facility] June 16, 2023 [facility] June 15, 2023 [facility] June 14, 2023 [facility] June 13, 2023 [facility] June 12, 2023 [facility] June 11, 2023 [facility] June 10, 2023 [facility] June 09, 2023 [facility] June 08, 2023 [facility] June 07, 2023 [facility] June 06, 2023 [facility] June 05, 2023 [facility] June 04, 2023 [facility] June 03, 2023 [facility] June 02, 2023 [facility] June 01, 2023 [facility] May 31, 2023 [facility] May 30, 2023 [facility] BP Sitting (Pre-Dialysis) 188/90 mmHg BP Standing (Pre-Dialysis) 163/84 mmHg Sitting Heart Rate Pre-Dialysis 76 BPM Standing Heart Rate Pre-Dialysis 76 BPM Temperature Pre-Dialysis 97.7 degF Weight Pre-Dialysis 119 kg May 30, 2023 [facility] May 29, 2023 [facility] May 28, 2023 [facility] May 27, 2023 [facility] May 26, 2023 [facility] BP Sitting (Pre-Dialysis) 165/77 mmHg BP Standing (Pre-Dialysis) 145/63 mmHg Sitting Heart Rate Pre-Dialysis 80 BPM Standing Heart Rate Pre-Dialysis 84 BPM Temperature Pre-Dialysis 98.1 degF Weight Pre-Dialysis 120 kg May 26, 2023 [facility] May 25, 2023 [facility] May 24, 2023 [facility] May 23, 2023 [facility] May 22, 2023 [facility] May 21, 2023 [facility] May 20, 2023 [facility] May 19, 2023 [facility] May 18, 2023 [facility] May 17, 2023 [facility] May 16, 2023 [facility] May 15, 2023 [facility] May 14, 2023 [facility] May 13, 2023 [facility] May 12, 2023 [facility] May 11, 2023 [facility] May 10, 2023 [facility] May 09, 2023 [facility] May 08, 2023 [facility] May 07, 2023 [facility] May 06, 2023 [facility] May 05, 2023 [facility] May 04, 2023 [facility] May 03, 2023 [facility] May 02, 2023 [facility] BP Sitting (Pre-Dialysis) 175/92 mmH g BP Standing (Pre-Dialysis) 177/87 mmHg Sitting Heart Rate Pre-Dialysis 72 BPM Standing Heart Rate Pre-Dialysis 75 BPM Temperature Pre-Dialysis 98.6 degF Weight Pre-Dialysis 113.6 kg May 02, 2023 [facility] May 01, 2023 [facility] April 30, 2023 [facility] April 29, 2023 [facility] April 28, 2023 [facility] April 27, 2023 [facility] April 26, 2023 [facility] BP Sitting (Pre-Dialysis) 144/77 mmH g BP Standing (Pre-Dialysis) 128/78 mmHg Sitting Heart Rate Pre-Dialysis 73 BPM Standing Heart Rate Pre-Dialysis 75 BPM Temperature Pre-Dialysis 98.7 degF Weight Pre-Dialysis 110.4 kg April 26, 2023 [facility] April 25, 2023 [facility] April 24, 2023 [facility] April 23, 2023 [facility] April 22, 2023 [facility] April 21, 2023 [facility] April 20, 2023 [facility] April 19, 2023 [facility] April 18, 2023 [facility] April 17, 2023 [facility] BP Sitting (Pre-Dialysis) 145/78 mmHg BP Standing (Pre-Dialysis) 145/78 mmHg Sitting Heart Rate Pre-Dialysis 80 BPM Standing Heart Rate Pre-Dialysis 80 BPM Temperature Pre-Dialysis 98.2 degF Weight Pre-Dialysis 123.3 kg April 15, 2023 [facility] April 14, 2023 [facility] April 13, 2023 [facility] BP Sitting (Pre-Dialysis) 153/78 mmHg BP Standing (Pre-Dialysis) 122/76 mmHg Sitting Heart Rate Pre-Dialysis 81 BPM Standing Heart Rate Pre-Dialysis 56 BPM Temperature Pre-Dialysis 98 degF Weight Pre-Dialysis 124 kg April 13, 2023 [facility] April 12, 2023 [facility] April 11, 2023 [facility] April 10, 2023 [facility] April 09, 2023 [facility] April 07, 2023 [facility] April 06, 2023 [facility] April 05, 2023 [facility] April 04, 2023 [facility] April 03, 2023 [facility] April 02, 2023 [facility] April 01, 2023 [facility] March 31, 2023 [facility] March 30, 2023 [facility] March 29, 2023 [facility] March 28, 2023 [facility] March 27, 2023 [facility] March 26, 2023 [facility] March 25, 2023 [facility] March 24, 2023 [facility] March 23, 2023 [facility] March 22, 2023 [facility] BP Sitting (Pre-Dialysis) 140/74 mmHg BP Standing (Pre-Dialysis) 150/58 mmHg Sitting Heart Rate Pre-Dialysis 61 BPM Standing Heart Rate Pre-Dialysis 61 BPM Temperature Pre-Dialysis 98.1 degF Weight Pre-Dialysis 123.6 kg March 21, 2023 [facility] March 20, 2023 [facility] March 19, 2023 [facility] March 18, 2023 [facility] March 17, 2023 [facility] March 16, 2023 [facility] March 15, 2023 [facility] March 14, 2023 [facility] March 13, 2023 [facility] March 12, 2023 [facility] March 11, 2023 [facility] March 10, 2023 [facility] March 09, 2023 [facility] March 08, 2023 [facility] March 07, 2023 [facility] March 06, 2023 [facility] March 05, 2023 [facility] March 04, 2023 [facility] March 03, 2023 [facility] March 02, 2023 [facility] March 01, 2023 [facility] February 28, 2023 [facility] BP Sitting (Pre-Dialysis) 168/91 mmHg BP Standing (Pre-Dialysis) 136/82 mmHg Sitting Heart Rate Pre-Dialysis 78 BPM Standing Heart Rate Pre-Dialysis 83 BPM Temperature Pre-Dialysis 97.9 degF Weight Pre-Dialysis 123.6 kg February 27, 2023 [facility] February 26, 2023 [facility] February 25, 2023 [facility] February 24, 2023 [facility] February 23, 2023 [facility] BP Sitting (Pre-Dialysis) 145/81 mmHg BP Standing (Pre-Dialysis) 118/77 mmHg Sitting Heart Rate Pre-Dialysis 71 BPM Standing Heart Rate Pre-Dialysis 75 BPM Temperature Pre-Dialysis 98.2 degF Weight Pre-Dialysis 124 kg February 23, 2023 [facility] February 22, 2023 [facility] February 21, 2023 [facility] February 20, 2023 [facility] February 19, 2023 [facility] February 18, 2023 [facility] February 17, 2023 [facility] February 16, 2023 [facility] February 15, 2023 [facility] February 14, 2023 [facility] February 13, 2023 [facility] February 12, 2023 [facility] February 11, 2023 [facility] February 10, 2023 [facility] February 09, 2023 [facility] February 08, 2023 [facility] February 07, 2023 [facility] February 06, 2023 [facility] February 05, 2023 [facility] February 04, 2023 [facility] February 03, 2023 [facility] February 02, 2023 [facility] February 01, 2023 [facility] January 31, 2023 [facility] BP Sitting (Pre-Dialysis) 161/75 mmHg BP Standing (Pre-Dialysis) 150/73 mmHg Sitting Heart Rate Pre-Dialysis 70 BPM Standing Heart Rate Pre-Dialysis 70 BPM Temperature Pre-Dialysis 97.3 degF Weight Pre-Dialysis 127.7 kg January 31, 2023 [facility] January 30, 2023 [facility] January 29, 2023 [facility] January 28, 2023 [facility] January 27, 2023 [facility] January 26, 2023 [facility] BP Sitting (Pre-Dialysis) 165/82 mmHg BP Standing (Pre-Dialysis) 165/82 mmHg Sitting Heart Rate Pre-Dialysis 69 BPM Standing Heart Rate Pre-Dialysis 69 BPM Temperature Pre-Dialysis 98 degF Weight Pre-Dialysis 124 kg January 26, 2023 [facility] January 25, 2023 [facility] January 24, 2023 [facility] January 23, 2023 [facility] January 22, 2023 [facility] January 21, 2023 [facility] January 20, 2023 [facility] January 19, 2023 [facility] January 18, 2023 [facility] January 17, 2023 [facility] January 16, 2023 [facility] January 15, 2023 [facility] January 14, 2023 [facility] January 13, 2023 [facility] January 12, 2023 [facility] January 11, 2023 [facility] January 10, 2023 [facility] January 09, 2023 [facility] January 08, 2023 [facility] January 07, 2023 [facility] January 06, 2023 [facility] January 05, 2023 [facility] January 04, 2023 [facility] January 03, 2023 [facility] January 02, 2023 [facility] January 01, 2023 [facility] December 31, 2022 [facility] December 30, 2022 [facility] December 29, 2022 [facility] December 28, 2022 [facility] December 27, 2022 [facility] BP Sitting (Pre-Dialysis) 141/70 mmHg BP Standing (Pre-Dialysis) 125/65 mmHg Sitting Heart Rate Pre-Dialysis 60 BPM Standing Heart Rate Pre-Dialysis 60 BPM Temperature Pre-Dialysis 96.8 degF Weight Pre-Dialysis 123.1 kg December 27, 2022 [facility] December 25, 2022 [facility] December 24, 2022 [facility] December 23, 2022 [facility] BP Sitting (Pre-Dialysis) 136/67 mmHg BP Standing (Pre-Dialysis) 156/71 mmHg Sitting Heart Rate Pre-Dialysis 76 BPM Standing Heart Rate Pre-Dialysis 75 BPM Temperature Pre-Dialysis 97.3 degF Weight Pre-Dialysis 123.1 kg December 23, 2022 [facility] December 22, 2022 [facility] December 21, 2022 [facility] December 20, 2022 [facility] December 19, 2022 [facility] December 18, 2022 [facility] December 17, 2022 [facility] December 16, 2022 [facility] December 15, 2022 [facility] December 14, 2022 [facility] December 13, 2022 [facility] December 12, 2022 [facility] December 10, 2022 [facility] December 09, 2022 [facility] December 08, 2022 [facility] December 07, 2022 [facility] December 06, 2022 [facility] December 05, 2022 [facility] December 04, 2022 [facility] December 03, 2022 [facility] December 02, 2022 [facility] December 01, 2022 [facility] November 30, 2022 [facility] November 29, 2022 [facility] BP Sitting (Pre-Dialysis) 180/75 mmHg BP Standing (Pre-Dialysis) 135/72 mmHg Sitting Heart Rate Pre-Dialysis 69 BPM Standing Heart Rate Pre-Dialysis 72 BPM Temperature Pre-Dialysis 97.5 degF Weight Pre-Dialysis 122.7 kg November 29, 2022 [facility] November 28, 2022 [facility] November 27, 2022 [facility] November 26, 2022 [facility] November 25, 2022 [facility] November 24, 2022 [facility] BP Sitting (Pre-Dialysis) 135/65 mmHg BP Standing (Pre-Dialysis) 143/66 mmHg Sitting Heart Rate Pre-Dialysis 62 BPM Standing Heart Rate Pre-Dialysis 64 BPM Temperature Pre-Dialysis 97.9 degF Weight Pre-Dialysis 124 kg November 24, 2022 [facility] November 23, 2022 [facility] November 22, 2022 [facility] November 21, 2022 [facility] November 20, 2022 [facility] November 19, 2022 [facility] November 18, 2022 [facility] November 17, 2022 [facility] November 16, 2022 [facility] November 15, 2022 [facility] November 14, 2022 [facility] November 13, 2022 [facility] November 12, 2022 [facility] November 11, 2022 [facility] November 10, 2022 [facility] November 09, 2022 [facility] November 08, 2022 [facility] November 07, 2022 [facility] November 06, 2022 [facility] November 05, 2022 [facility] November 04, 2022 [facility] November 03, 2022 [facility] November 02, 2022 [facility] November 01, 2022 [facility] BP Sitting (Pre-Dialysis) 159/70 mmHg BP Standing (Pre-Dialysis) 149/78 mmHg Sitting Heart Rate Pre-Dialysis 68 BPM Standing Heart Rate Pre-Dialysis 71 BPM Temperature Pre-Dialysis 97.3 degF Weight Pre-Dialysis 123.6 kg November 01, 2022 [facility] October 31, 2022 [facility] October 30, 2022 [facility] October 29, 2022 [facility] October 28, 2022 [facility] October 27, 2022 [facility] October 26, 2022 [facility] October 25, 2022 [facility] BP Sitting (Pre-Dialysis) 128/67 mmHg BP Standing (Pre-Dialysis) 164/67 mmHg Sitting Heart Rate Pre-Dialysis 67 BPM Standing Heart Rate Pre-Dialysis 63 BPM Temperature Pre-Dialysis 97.3 degF Weight Pre-Dialysis 121.3 kg October 25, 2022 [facility] October 24, 2022 [facility] October 23, 2022 [facility] October 22, 2022 [facility] October 21, 2022 [facility] October 20, 2022 [facility] October 19, 2022 [facility] October 18, 2022 [facility] October 17, 2022 [facility] October 16, 2022 [facility] October 15, 2022 [facility] October 14, 2022 [facility] October 13, 2022 [facility] October 12, 2022 [facility] October 11, 2022 [facility] October 10, 2022 [facility] October 09, 2022 [facility] October 08, 2022 [facility] October 07, 2022 [facility] October 06, 2022 [facility] October 05, 2022 [facility] October 04, 2022 [facility] BP Sitting (Pre-Dialysis) 152/66 mmHg BP Standing (Pre-Dialysis) 137/67 mmHg Sitting Heart Rate Pre-Dialysis 72 BPM Standing Heart Rate Pre-Dialysis 72 BPM Temperature Pre-Dialysis 97.3 degF Weight Pre-Dialysis 120.9 kg October 04, 2022 [facility] October 03, 2022 [facility] October 02, 2022 [facility] October 01, 2022 [facility] September 30, 2022 [facility] September 29, 2022 [facility] September 28, 2022 [facility] BP Sitting (Pre-Dialysis) 118/65 mmHg BP Standing (Pre-Dialysis) 83/58 mmHg Sitting Heart Rate Pre-Dialysis 69 BPM Standing Heart Rate Pre-Dialysis 80 BPM Temperature Pre-Dialysis 97.3 degF Weight Pre-Dialysis 120 kg September 28, 2022 [facility] September 27, 2022 [facility] September 26, 2022 [facility] September 25, 2022 [facility] September 24, 2022 [facility] September 23, 2022 [facility] September 22, 2022 [facility] September 21, 2022 [facility] September 20, 2022 [facility] September 19, 2022 [facility] September 18, 2022 [facility] September 17, 2022 [facility] September 16, 2022 [facility] September 15, 2022 [facility] September 14, 2022 [facility] September 13, 2022 [facility] September 12, 2022 [facility] September 11, 2022 [facility] September 10, 2022 [facility] September 09, 2022 [facility] September 08, 2022 [facility] September 07, 2022 [facility] September 06, 2022 [facility] September 05, 2022 [facility] September 04, 2022 [facility] September 03, 2022 [facility] September 02, 2022 [facility] September 01, 2022 [facility] BP Sitting (Pre-Dialysis) 143/75 mmHg BP Standing (Pre-Dialysis) 93/75 mmHg Sitting Heart Rate Pre-Dialysis 67 BPM Standing Heart Rate Pre-Dialysis 72 BPM Temperature Pre-Dialysis 97.3 degF Weight Pre-Dialysis 114 kg September 01, 2022 [facility] August 31, 2022 [facility] August 30, 2022 [facility] August 29, 2022 [facility] August 28, 2022 [facility] August 27, 2022 [facility] August 26, 2022 [facility] August 25, 2022 [facility] August 24, 2022 [facility] August 23, 2022 [facility] BP Sitting (Pre-Dialysis) 143/75 mmHg BP Standing (Pre-Dialysis) 93/75 mmHg Sitting Heart Rate Pre-Dialysis 67 BPM Standing Heart Rate Pre-Dialysis 72 BPM Temperature Pre-Dialysis 97.3 degF Weight Pre-Dialysis 114 kg August 23, 2022 [facility] August 22, 2022 [facility] August 21, 2022 [facility] August 20, 2022 [facility] August 19, 2022 [facility] August 18, 2022 CCPD 2022 CCPD August 16, 2022 [facility] August 15, 2022 [facility] August 14, 2022 [facility] August 13, 2022 [facility] August 12, 2022 [facility] August 11, 2022 [facility] August 10, 2022 [facility] August 09, 2022 [facility] August 08, 2022 [facility] August 07, 2022 [facility] August 06, 2022 [facility] August 05, 2022 [facility] August 04, 2022 [facility] August 03, 2022 [facility] August 02, 2022 [facility] BP Sitting (Pre-Dialysis) 88/64 mmHg BP Standing (Pre-Dialysis) 137/78 mmHg Sitting Heart Rate Pre-Dialysis 90 BPM Standing Heart Rate Pre-Dialysis 90 BPM Temperature Pre-Dialysis 97.3 degF Weight Pre-Dialysis 120.4 kg August 02, 2022 [facility] August 01, 2022 [facility] July 31, 2022 [facility] DIALYSIS ORDER Dialysis Procedure Orders Type of Dialysis Procedure Order Order Date/Time Observations [facility] 07, 2024 Target Weight 119 kg Ordered Access Type Peritoneal dialysis catheter Vendor [place] Total Fill Volume per 24 Hour 84678 mL Target Cycler Total Time 9hr Treatment Location Display At Patient's Home Target Weight with Prescribed Day Fill Y es Training Element No Training Incremental Increase Flag No Day Exchange Delivery Method No Day Exch camila Overnight Exchange Delivery Method Cycle r Overnight Exchange Number of Exchanges 4 Overnight Exchange Calcium 2.5 mEq/L Overnight Exchange Magnesium 0.5 mEq/L Overnight Exchange Target Dwell Time 1 h r 38 Min Overnight Exchange Last Fill Target Dwel l TimeOvernight Exchange Info 15 hr 0 Min Fill Number: 1 pd_solution_strength_code_id Varied-See Instruction(s) Fill Number: 2 fill_volume pd_solution_strength_code_id Varied-See Instruction(s) Fill Number: 3 fill_volume pd_solution_strength_code_id Varied-See Instruction(s) Fill Number: 4 fill_volume pd_solution_strength_code_id Varied-See Instruction(s) Fill Number: Last fill_volume pd_solution_strength_code_id Extraneal 7 .5% (Icodextrin) [facility] 2023 Observation Value Target Weight 119 kg Ordered Access Type Peritoneal dialysis catheter Vendor [employer] Total Fill Volume per 24 Hour 04564 mL Target Cycler Total Time 9hr Treatment Location Display At Patient's Home Target Weight with Prescribed Day Fill Y es Training Element No Training Incremental Increase Flag No Day Exchange Delivery Method No Day Exch camila Overnight Exchange Delivery Method Cycle r Overnight Exchange Number of Exchanges 4 Overnight Exchange Calcium 2.5 mEq/L Overnight Exchange Magnesium 0.5 mEq/L Overnight Exchange Target Dwell Time 1 h r 38 Min Overnight Exchange Last Fill Target Dwel l TimeOvernight Exchange Info 15 hr 0 Min Fill Number: 1 pd_solution_strength_code_id Varied-See Instruction(s) Fill Number: 2 fill_volume pd_solution_strength_code_id Varied-See Instruction(s) Fill Number: 3 fill_volume pd_solution_strength_code_id Varied-See Instruction(s) Fill Number: 4 fill_volume pd_solution_strength_code_id Varied-See Instruction(s) Fill Number: Last fill_volume pd_solution_strength_code_id Extraneal 7 .5% (Icodextrin) Results Adequacy Description Draw Date Result/Unit Status Ref Range Result Comments CRE CLR UR/BSA 2024-07-26 10:50:55 5 mL/min F 85.0-125.0 CRE CLR UR/BSA 2024-07-26 10:50:55 5 mL/min F 85.0-125.0 CRE CLR UR/BSA 2024-07-26 10:50:55 5 mL/min F 85.0-125.0 KT/V PDF (M) 2024-07-25 17:22:34 1.39 Kt/V F L/WK/1.73 PDF 2024-07-25 17:22:34 45.79 L/WK/B F L/WK PDF 2024-07-25 17:22:34 62.33 L/wk F KT/V TOTAL (M) 2024-07-25 17:22:34 1.83 Kt/V F L/WK/1.73 TOTAL 2024-07-25 17:22:34 80.76 L/WK/B F L/WK PDF 2024-07-25 17:22:34 62.33 L/wk F L/WK/1.73 TOTAL 2024-07-25 17:22:34 80.76 L/WK/B F KT/V PDF (M) 2024-07-25 17:22:34 1.39 Kt/V F KT/V TOTAL () 2024-07-25 17:22:34 1.83 Kt/V F L/WK/1.73 PDF 2024-07-25 17:22:34 45.79 L/WK/B F L/WK/1.73 TOTAL 2024-07-25 17:22:34 80.76 L/WK/B F KT/V PDF (M) 2024-07-25 17:22:34 1.39 Kt/V F L/WK PDF 2024-07-25 17:22:34 62.33 L/wk F KT/V TOTAL (M) 2024-07-25 17:22:34 1.83 Kt/V F L/WK/1.73 PDF 2024-07-25 17:22:34 45.79 L/WK/B F PNA (PD) 2024-07-25 17:22:34 79.6 g/day F PCR PD MALE 2024-07-25 17:22:34 73 g/day F Urea Gen Rate 2024-07-25 17:22:34 12.8 GM/D F nPNA (PD MALE) 2024-07-25 17:22:34 0.81 G/KG/D F NPCR PD MALE 2024-07-25 17:22:34 0.74 G/KG/D F NPCR PD MALE 2024-07-25 17:22:34 0.74 G/KG/D F PNA (PD) 2024-07-25 17:22:34 79.6 g/day F nPNA (PD MALE) 2024-07-25 17:22:34 0.81 G/KG/D F PCR PD MALE 2024-07-25 17:22:34 73 g/day F Urea Gen Rate 2024-07-25 17:22:34 12.8 GM/D F NPCR PD MALE 2024-07-25 17:22:34 0.74 G/KG/D F nPNA (PD MALE) 2024-07-25 17:22:34 0.81 G/KG/D F PNA (PD) 2024-07-25 17:22:34 79.6 g/day F PCR PD MALE 2024-07-25 17:22:34 73 g/day F Urea Gen Rate 2024-07-25 17:22:34 12.8 GM/D F Creatinine [Mass/volume] in Peritoneal dialysis fluid 2024-07-25 17:21:19 3.92 mg/dL F Urea nitrogen [Mass/volume] in Peritoneal fluid --24 hours post peritoneal dialysis 2024-07-25 17:21:19 41 mg/dL F Urea nitrogen [Mass/volume] in Peritoneal fluid --24 hours post peritoneal dialysis 2024-07-25 17:21:19 41 mg/dL F Creatinine [Mass/volume] in Peritoneal dialysis fluid 2024-07-25 17:21:19 3.92 mg/dL F Creatinine [Mass/volume] in Peritoneal dialysis fluid 2024-07-25 17:21:19 3.92 mg/dL F Urea nitrogen [Mass/volume] in Peritoneal fluid --24 hours post peritoneal dialysis 2024-07-25 17:21:19 41 mg/dL F UREA CLR UR 2024-07-25 16:32:43 2.5 mL/min F L/WK RESID CC 2024-07-25 16:32:43 47.59 L/wk F KT/V RESID (M) 2024-07-25 16:32:43 0.44 Kt/V F L/WK/1.73 RESID 2024-07-25 16:32:43 34.96 L/WK/B F UREA CLR UR/BSA 2024-07-25 16:32:43 1.8 mL/min F 64.0-99.0 CRE CLR UR 2024-07-25 16:32:43 7 mL/min F 97.0-137.0 UREA CLR UR/BSA 2024-07-25 16:32:43 1.8 mL/min F 64.0-99.0 UREA CLR UR 2024-07-25 16:32:43 2.5 mL/min F CRE CLR UR 2024-07-25 16:32:43 7 mL/min F 97.0-137.0 L/WK/1.73 RESID 2024-07-25 16:32:43 34.96 L/WK/B F KT/V RESID (M) 2024-07-25 16:32:43 0.44 Kt/V F L/WK RESID CC 2024-07-25 16:32:43 47.59 L/wk F UREA CLR UR/BSA 2024-07-25 16:32:43 1.8 mL/min F 64.0-99.0 UREA CLR UR 2024-07-25 16:32:43 2.5 mL/min F L/WK/1.73 RESID 2024-07-25 16:32:43 34.96 L/WK/B F CRE CLR UR 2024-07-25 16:32:43 7 mL/min F 97.0-137.0 KT/V RESID (M) 2024-07-25 16:32:43 0.44 Kt/V F L/WK RESID CC 2024-07-25 16:32:43 47.59 L/wk F Creatinine [Mass/volume] in Urine 2024-07-25 16:31:16 87.59 mg/dL F Urea nitrogen [Mass/volume] in Urine 2024-07-25 16:31:16 260 mg/dL F Urea nitrogen [Mass/volume] in Urine 2024-07-25 16:31:16 260 mg/dL F Creatinine [Mass/volume] in Urine 2024-07-25 16:31:16 87.59 mg/dL F Urea nitrogen [Mass/volume] in Urine 2024-07-25 16:31:16 260 mg/dL F Creatinine [Mass/volume] in Urine 2024-07-25 16:31:16 87.59 mg/dL F BSA GRACIA 2024-07-25 16:25:52 2.35 sq m F TBW NILDA GALICIA 2024-07-25 16:25:52 56.81 Liters F BUN/CREAT 2024-07-25 16:25:52 8.3 Calc F 6.9-32.9 BUN/CREAT 2024-07-25 16:25:52 8.3 Calc F 6.9-32.9 BSA GRACIA 2024-07-25 16:25:52 2.35 sq m F TBW NILDA GALICIA 2024-07-25 16:25:52 56.81 Liters F BUN/CREAT 2024-07-25 16:25:52 8.3 Calc F 6.9-32.9 BSA GRACIA 2024-07-25 16:25:52 2.35 sq m F TBW NILDA GALICIA 2024-07-25 16:25:52 56.81 Liters F Creatinine [Mass/volume] in Serum or Plasma 2024-07-25 16:24:37 7 mg/dL F 0.7-1.3 Urea nitrogen [Mass/volume] in Serum or Plasma 2024-07-25 16:24:37 58 mg/dL F 9.0-23.0 Urea nitrogen [Mass/volume] in Serum or Plasma 2024-07-25 16:24:37 58 mg/dL F 9.0-23.0 Creatinine [Mass/volume] in Serum or Plasma 2024-07-25 16:24:37 7 mg/dL F 0.7-1.3 Urea nitrogen [Mass/volume] in Serum or Plasma 2024-07-25 16:24:37 58 mg/dL F 9.0-23.0 Creatinine [Mass/volume] in Serum or Plasma 2024-07-25 16:24:37 7 mg/dL F 0.7-1.3 PATIENT AGE 2024-07-24 20:55:14 53 Years F AMPUTATE FACTOR 2024-07-24 20:55:14 0 F HEIGHT IN INCHES 2024-07-24 20:55:14 70 Inches F BODY WEIGHT (LBS) 2024-07-24 20:55:14 265 lbs F BODY WEIGHT (LBS) 2024-07-24 20:55:14 265 lbs F PATIENT AGE 2024-07-24 20:55:14 53 Years F HEIGHT IN INCHES 2024-07-24 20:55:14 70 Inches F AMPUTATE FACTOR 2024-07-24 20:55:14 0 F PATIENT AGE 2024-07-24 20:55:14 53 Years F BODY WEIGHT (LBS) 2024-07-24 20:55:14 265 lbs F HEIGHT IN INCHES 2024-07-24 20:55:14 70 Inches F AMPUTATE FACTOR 2024-07-24 20:55:14 0 F Total Volume of EFFL/DIAL 2024-07-24 20:55:14 09246 mLs F MINIMUM GOAL: KT/V PD 2024-07-24 20:55:14 1.7 F Total Volume of EFFL/DIAL 2024-07-24 20:55:14 99179 mLs F MINIMUM GOAL: KT/V PD 2024-07-24 20:55:14 1.7 F Total Volume of EFFL/DIAL 2024-07-24 20:55:14 88440 mLs F MINIMUM GOAL: KT/V PD 2024-07-24 20:55:14 1.7 F COLLECTION TIME FOR URINE 2024-07-24 20:55:14 1440 min F TOTAL VOLUME-24 HR URINE 2024-07-24 20:55:14 800 mL F COLLECTION TIME FOR URINE 2024-07-24 20:55:14 1440 min F TOTAL VOLUME-24 HR URINE 2024-07-24 20:55:14 800 mL F COLLECTION TIME FOR URINE 2024-07-24 20:55:14 1440 min F TOTAL VOLUME-24 HR URINE 2024-07-24 20:55:14 800 mL F BUN/CREAT 2024-06-27 15:05:04 10.9 Calc F 6.9-32.9 BUN/CREAT 2024-06-27 15:05:04 10.9 Calc F 6.9-32.9 BUN/CREAT 2024-06-27 15:05:04 10.9 Calc F 6.9-32.9 Urea nitrogen [Mass/volume] in Serum or Plasma 2024-06-27 15:04:18 71 mg/dL F 9.0-23.0 Creatinine [Mass/volume] in Serum or Plasma 2024-06-27 15:04:18 6.54 mg/dL F 0.7-1.3 Urea nitrogen [Mass/volume] in Serum or Plasma 2024-06-27 15:04:18 71 mg/dL F 9.0-23.0 Creatinine [Mass/volume] in Serum or Plasma 2024-06-27 15:04:18 6.54 mg/dL F 0.7-1.3 Urea nitrogen [Mass/volume] in Serum or Plasma 2024-06-27 15:04:18 71 mg/dL F 9.0-23.0 Creatinine [Mass/volume] in Serum or Plasma 2024-06-27 15:04:18 6.54 mg/dL F 0.7-1.3 BUN/CREAT 2024-05-23 13:16:21 11.2 Calc F 6.9-32.9 BUN/CREAT 2024-05-23 13:16:21 11.2 Calc F 6.9-32.9 Urea nitrogen [Mass/volume] in Serum or Plasma 2024-05-23 13:16:17 74 mg/dL F 9.0-23.0 Creatinine [Mass/volume] in Serum or Plasma 2024-05-23 13:16:17 6.59 mg/dL F 0.7-1.3 Urea nitrogen [Mass/volume] in Serum or Plasma 2024-05-23 13:16:17 74 mg/dL F 9.0-23.0 Creatinine [Mass/volume] in Serum or Plasma 2024-05-23 13:16:17 6.59 mg/dL F 0.7-1.3 BUN/CREAT 2024-02-21 12:30:07 11.4 Calc F 6.9-32.9 BUN/CREAT 2024-02-21 12:30:07 11.4 Calc F 6.9-32.9 BUN/CREAT 2024-02-21 12:30:07 11.4 Calc F 6.9-32.9 Urea nitrogen [Mass/volume] in Serum or Plasma 2024-02-21 12:29:27 78 mg/dL F 9.0-23.0 Creatinine [Mass/volume] in Serum or Plasma 2024-02-21 12:29:27 6.82 mg/dL F 0.7-1.3 Urea nitrogen [Mass/volume] in Serum or Plasma 2024-02-21 12:29:27 78 mg/dL F 9.0-23.0 Creatinine [Mass/volume] in Serum or Plasma 2024-02-21 12:29:27 6.82 mg/dL F 0.7-1.3 Urea nitrogen [Mass/volume] in Serum or Plasma 2024-02-21 12:29:27 78 mg/dL F 9.0-23.0 Creatinine [Mass/volume] in Serum or Plasma 2024-02-21 12:29:27 6.82 mg/dL F 0.7-1.3 BUN/CREAT 2023-12-22 01:39:34 11.6 Calc F 6.9-32.9 BUN/CREAT 2023-12-22 01:39:34 11.6 Calc F 6.9-32.9 Urea nitrogen [Mass/volume] in Serum or Plasma 2023-12-22 01:38:38 61 mg/dL F 9.0-23.0 Creatinine [Mass/volume] in Serum or Plasma 2023-12-22 01:38:38 5.24 mg/dL F 0.7-1.3 Urea nitrogen [Mass/volume] in Serum or Plasma 2023-12-22 01:38:38 61 mg/dL F 9.0-23.0 Creatinine [Mass/volume] in Serum or Plasma 2023-12-22 01:38:38 5.24 mg/dL F 0.7-1.3 L/WK PDF CC 2023-11-11 18:05:49 46.14 L/wk F L/WK/1.73 TOTAL 2023-11-11 18:05:49 94.51 L/WK/B F KT/V PDF (M) 2023-11-11 18:05:49 1.07 Kt/V F L/WK/1.73 PDF 2023-11-11 18:05:49 34.12 L/WK/B F KT/V TOTAL (M) 2023-11-11 18:05:49 1.93 Kt/V F L/WK PDF CC 2023-11-11 18:05:49 46.14 L/wk F L/WK/1.73 TOTAL 2023-11-11 18:05:49 94.51 L/WK/B F KT/V PDF (M) 2023-11-11 18:05:49 1.07 Kt/V F KT/V TOTAL (M) 2023-11-11 18:05:49 1.93 Kt/V F L/WK/1.73 PDF 2023-11-11 18:05:49 34.12 L/WK/B F L/WK PDF CC 2023-11-11 18:05:49 46.14 L/wk F KT/V PDF (M) 2023-11-11 18:05:49 1.07 Kt/V F L/WK/1.73 TOTAL 2023-11-11 18:05:49 94.51 L/WK/B F KT/V TOTAL (M) 2023-11-11 18:05:49 1.93 Kt/V F L/WK/1.73 PDF 2023-11-11 18:05:49 34.12 L/WK/B F NPCR PD MALE 2023-11-11 18:05:49 0.9 G/KG/D F nPNA (PD MALE) 2023-11-11 18:05:49 0.99 G/KG/D F PCR PD MALE 2023-11-11 18:05:49 87 g/day F PNA (PD) 2023-11-11 18:05:49 96.1 g/day F Urea Gen Rate 2023-11-11 18:05:49 16.1 GM/D F NPCR PD MALE 2023-11-11 18:05:49 0.9 G/KG/D F PNA (PD) 2023-11-11 18:05:49 96.1 g/day F nPNA (PD MALE) 2023-11-11 18:05:49 0.99 G/KG/D F PCR PD MALE 2023-11-11 18:05:49 87 g/day F Urea Gen Rate 2023-11-11 18:05:49 16.1 GM/D F NPCR PD MALE 2023-11-11 18:05:49 0.9 G/KG/D F PNA (PD) 2023-11-11 18:05:49 96.1 g/day F nPNA (PD MALE) 2023-11-11 18:05:49 0.99 G/KG/D F PCR PD MALE 2023-11-11 18:05:49 87 g/day F Urea Gen Rate 2023-11-11 18:05:49 16.1 GM/D F Creatinine [Mass/volume] in Peritoneal dialysis fluid 2023-11-11 18:05:36 3.67 mg/dL F Urea nitrogen [Mass/volume] in Peritoneal fluid --24 hours post peritoneal dialysis 2023-11-11 18:05:36 46 mg/dL F Creatinine [Mass/volume] in Peritoneal dialysis fluid 2023-11-11 18:05:36 3.67 mg/dL F Urea nitrogen [Mass/volume] in Peritoneal fluid --24 hours post peritoneal dialysis 2023-11-11 18:05:36 46 mg/dL F Creatinine [Mass/volume] in Peritoneal dialysis fluid 2023-11-11 18:05:36 3.67 mg/dL F Urea nitrogen [Mass/volume] in Peritoneal fluid --24 hours post peritoneal dialysis 2023-11-11 18:05:36 46 mg/dL F CRE CLR UR/BSA 2023-11-11 17:04:18 8 mL/min F 85.0-125.0 UREA CLR UR/BSA 2023-11-11 17:04:18 3.5 mL/min F 64.0-99.0 UREA CLR UR 2023-11-11 17:04:18 4.8 mL/min F CRE CLR UR 2023-11-11 17:04:18 11 mL/min F 97.0-137.0 L/WK/1.73 RESID 2023-11-11 17:04:18 60.39 L/WK/B F KT/V RESID (M) 2023-11-11 17:04:18 0.85 Kt/V F L/WK RESID CC 2023-11-11 17:04:18 81.66 L/wk F UREA CLR UR/BSA 2023-11-11 17:04:18 3.5 mL/min F 64.0-99.0 CRE CLR UR/BSA 2023-11-11 17:04:18 8 mL/min F 85.0-125.0 UREA CLR UR 2023-11-11 17:04:18 4.8 mL/min F CRE CLR UR 2023-11-11 17:04:18 11 mL/min F 97.0-137.0 L/WK/1.73 RESID 2023-11-11 17:04:18 60.39 L/WK/B F KT/V RESID (M) 2023-11-11 17:04:18 0.85 Kt/V F L/WK RESID CC 2023-11-11 17:04:18 81.66 L/wk F UREA CLR UR 2023-11-11 17:04:18 4.8 mL/min F L/WK/1.73 RESID 2023-11-11 17:04:18 60.39 L/WK/B F KT/V RESID (M) 2023-11-11 17:04:18 0.85 Kt/V F L/WK RESID CC 2023-11-11 17:04:18 81.66 L/wk F UREA CLR UR/BSA 2023-11-11 17:04:18 3.5 mL/min F 64.0-99.0 CRE CLR UR/BSA 2023-11-11 17:04:18 8 mL/min F 85.0-125.0 CRE CLR UR 2023-11-11 17:04:18 11 mL/min F 97.0-137.0 Urea nitrogen [Mass/volume] in Urine 2023-11-11 17:03:29 342 mg/dL F Creatinine [Mass/volume] in Urine 2023-11-11 17:03:29 86.11 mg/dL F Urea nitrogen [Mass/volume] in Urine 2023-11-11 17:03:29 342 mg/dL F Creatinine [Mass/volume] in Urine 2023-11-11 17:03:29 86.11 mg/dL F Urea nitrogen [Mass/volume] in Urine 2023-11-11 17:03:29 342 mg/dL F Creatinine [Mass/volume] in Urine 2023-11-11 17:03:29 86.11 mg/dL F BUN/CREAT 2023-11-11 15:00:06 9.6 Calc F 6.9-32.9 BSA GRACIA 2023-11-11 15:00:06 2.34 sq m F TBW NILDA GALICIA 2023-11-11 15:00:06 56.19 Liters F BUN/CREAT 2023-11-11 15:00:06 9.6 Calc F 6.9-32.9 BSA GRACIA 2023-11-11 15:00:06 2.34 sq m F TBW NILDA GALICIA 2023-11-11 15:00:06 56.19 Liters F BSA GRACIA 2023-11-11 15:00:06 2.34 sq m F TBW NILDA GALICIA 2023-11-11 15:00:06 56.19 Liters F BUN/CREAT 2023-11-11 15:00:06 9.6 Calc F 6.9-32.9 Urea nitrogen [Mass/volume] in Serum or Plasma 2023-11-11 14:59:28 70 mg/dL F 9.0-23.0 Creatinine [Mass/volume] in Serum or Plasma 2023-11-11 14:59:28 7.31 mg/dL F 0.7-1.3 Urea nitrogen [Mass/volume] in Serum or Plasma 2023-11-11 14:59:28 70 mg/dL F 9.0-23.0 Creatinine [Mass/volume] in Serum or Plasma 2023-11-11 14:59:28 7.31 mg/dL F 0.7-1.3 Creatinine [Mass/volume] in Serum or Plasma 2023-11-11 14:59:28 7.31 mg/dL F 0.7-1.3 Urea nitrogen [Mass/volume] in Serum or Plasma 2023-11-11 14:59:28 70 mg/dL F 9.0-23.0 PATIENT AGE 2023-11-10 20:12:56 53 Years F BODY WEIGHT (LBS) 2023-11-10 20:12:56 261 lbs F HEIGHT IN INCHES 2023-11-10 20:12:56 70 Inches F AMPUTATE FACTOR 2023-11-10 20:12:56 0 F PATIENT AGE 2023-11-10 20:12:56 53 Years F BODY WEIGHT (LBS) 2023-11-10 20:12:56 261 lbs F HEIGHT IN INCHES 2023-11-10 20:12:56 70 Inches F AMPUTATE FACTOR 2023-11-10 20:12:56 0 F PATIENT AGE 2023-11-10 20:12:56 53 Years F BODY WEIGHT (LBS) 2023-11-10 20:12:56 261 lbs F HEIGHT IN INCHES 2023-11-10 20:12:56 70 Inches F AMPUTATE FACTOR 2023-11-10 20:12:56 0 F Total Volume of EFFL/DIAL 2023-11-10 20:12:56 32259 mLs F MINIMUM GOAL: KT/V PD 2023-11-10 20:12:56 1.7 F Total Volume of EFFL/DIAL 2023-11-10 20:12:56 45954 mLs F MINIMUM GOAL: KT/V PD 2023-11-10 20:12:56 1.7 F Total Volume of EFFL/DIAL 2023-11-10 20:12:56 57384 mLs F MINIMUM GOAL: KT/V PD 2023-11-10 20:12:56 1.7 F COLLECTION TIME FOR URINE 2023-11-10 20:12:56 1440 min F TOTAL VOLUME-24 HR URINE 2023-11-10 20:12:56 1400 mL F COLLECTION TIME FOR URINE 2023-11-10 20:12:56 1440 min F TOTAL VOLUME-24 HR URINE 2023-11-10 20:12:56 1400 mL F COLLECTION TIME FOR URINE 2023-11-10 20:12:56 1440 min F TOTAL VOLUME-24 HR URINE 2023-11-10 20:12:56 1400 mL F BUN/CREAT 2023-08-31 21:30:57 8.5 Calc F 6.9-32.9 BUN/CREAT 2023-08-31 21:30:57 8.5 Calc F 6.9-32.9 Urea nitrogen [Mass/volume] in Serum or Plasma 2023-08-31 21:30:36 51 mg/dL F 9.0-23.0 Creatinine [Mass/volume] in Serum or Plasma 2023-08-31 21:30:36 6 mg/dL F 0.7-1.3 Urea nitrogen [Mass/volume] in Serum or Plasma 2023-08-31 21:30:36 51 mg/dL F 9.0-23.0 Creatinine [Mass/volume] in Serum or Plasma 2023-08-31 21:30:36 6 mg/dL F 0.7-1.3 NPCR PD MALE 2023-04-28 00:06:20 0.74 G/KG/D F UREA CLR UR/BSA 2023-04-28 00:06:20 3.1 mL/min F 64.0-99.0 UREA CLR UR 2023-04-28 00:06:20 4 mL/min F CRE CLR UR/BSA 2023-04-28 00:06:20 10 mL/min F 85.0-125.0 PNA (PD) 2023-04-28 00:06:20 75.6 g/day F nPNA (PD MALE) 2023-04-28 00:06:20 0.82 G/KG/D F PCR PD MALE 2023-04-28 00:06:20 68 g/day F Urea Gen Rate 2023-04-28 00:06:20 12 GM/D F CRE CLR UR 2023-04-28 00:06:20 13 mL/min F 97.0-137.0 L/WK/1.73 RESID 2023-04-28 00:06:20 63.74 L/WK/B F L/WK/1.73 TOTAL 2023-04-28 00:06:20 102.71 L/WK/B F KT/V RESID (M) 2023-04-28 00:06:20 0.75 Kt/V F KT/V TOTAL (M) 2023-04-28 00:06:20 2.07 Kt/V F L/WK RESID CC 2023-04-28 00:06:20 83.62 L/wk F NPCR PD MALE 2023-04-28 00:06:20 0.74 G/KG/D F UREA CLR UR/BSA 2023-04-28 00:06:20 3.1 mL/min F 64.0-99.0 CRE CLR UR/BSA 2023-04-28 00:06:20 10 mL/min F 85.0-125.0 UREA CLR UR 2023-04-28 00:06:20 4 mL/min F PNA (PD) 2023-04-28 00:06:20 75.6 g/day F nPNA (PD MALE) 2023-04-28 00:06:20 0.82 G/KG/D F PCR PD MALE 2023-04-28 00:06:20 68 g/day F Urea Gen Rate 2023-04-28 00:06:20 12 GM/D F CRE CLR UR 2023-04-28 00:06:20 13 mL/min F 97.0-137.0 L/WK/1.73 RESID 2023-04-28 00:06:20 63.74 L/WK/B F L/WK/1.73 TOTAL 2023-04-28 00:06:20 102.71 L/WK/B F KT/V TOTAL (M) 2023-04-28 00:06:20 2.07 Kt/V F KT/V RESID (M) 2023-04-28 00:06:20 0.75 Kt/V F L/WK RESID CC 2023-04-28 00:06:20 83.62 L/wk F CRE CLR UR/BSA 2023-04-28 00:06:20 10 mL/min F 85.0-125.0 UREA CLR UR 2023-04-28 00:06:20 4 mL/min F Urea Gen Rate 2023-04-28 00:06:20 12 GM/D F KT/V RESID (M) 2023-04-28 00:06:20 0.75 Kt/V F L/WK RESID CC 2023-04-28 00:06:20 83.62 L/wk F NPCR PD MALE 2023-04-28 00:06:20 0.74 G/KG/D F UREA CLR UR/BSA 2023-04-28 00:06:20 3.1 mL/min F 64.0-99.0 PNA (PD) 2023-04-28 00:06:20 75.6 g/day F nPNA (PD MALE) 2023-04-28 00:06:20 0.82 G/KG/D F PCR PD MALE 2023-04-28 00:06:20 68 g/day F L/WK/1.73 RESID 2023-04-28 00:06:20 63.74 L/WK/B F CRE CLR UR 2023-04-28 00:06:20 13 mL/min F 97.0-137.0 L/WK/1.73 TOTAL 2023-04-28 00:06:20 102.71 L/WK/B F KT/V TOTAL (M) 2023-04-28 00:06:20 2.07 Kt/V F Urea nitrogen [Mass/volume] in Urine 2023-04-28 00:05:47 327 mg/dL F Creatinine [Mass/volume] in Urine 2023-04-28 00:05:47 110.73 mg/dL F Urea nitrogen [Mass/volume] in Urine 2023-04-28 00:05:47 327 mg/dL F Creatinine [Mass/volume] in Urine 2023-04-28 00:05:47 110.73 mg/dL F Creatinine [Mass/volume] in Urine 2023-04-28 00:05:47 110.73 mg/dL F Urea nitrogen [Mass/volume] in Urine 2023-04-28 00:05:47 327 mg/dL F BUN/CREAT 2023-04-27 22:17:55 9.3 Calc F 6.9-32.9 L/WK PDF CC 2023-04-27 22:17:55 51.13 L/wk F KT/V PDF (M) 2023-04-27 22:17:55 1.31 Kt/V F L/WK/1.73 PDF 2023-04-27 22:17:55 38.97 L/WK/B F BUN/CREAT 2023-04-27 22:17:55 9.3 Calc F 6.9-32.9 L/WK PDF CC 2023-04-27 22:17:55 51.13 L/wk F KT/V PDF (M) 2023-04-27 22:17:55 1.31 Kt/V F L/WK/1.73 PDF 2023-04-27 22:17:55 38.97 L/WK/B F KT/V PDF (M) 2023-04-27 22:17:55 1.31 Kt/V F BUN/CREAT 2023-04-27 22:17:55 9.3 Calc F 6.9-32.9 L/WK PDF CC 2023-04-27 22:17:55 51.13 L/wk F L/WK/1.73 PDF 2023-04-27 22:17:55 38.97 L/WK/B F Creatinine [Mass/volume] in Serum or Plasma 2023-04-27 22:17:39 5.5 mg/dL F 0.7-1.3 Creatinine [Mass/volume] in Serum or Plasma 2023-04-27 22:17:39 5.5 mg/dL F 0.7-1.3 Creatinine [Mass/volume] in Serum or Plasma 2023-04-27 22:17:39 5.5 mg/dL F 0.7-1.3 Urea nitrogen [Mass/volume] in Serum or Plasma 2023-04-27 22:17:37 51 mg/dL F 9.0-23.0 Urea nitrogen [Mass/volume] in Serum or Plasma 2023-04-27 22:17:37 51 mg/dL F 9.0-23.0 Urea nitrogen [Mass/volume] in Serum or Plasma 2023-04-27 22:17:37 51 mg/dL F 9.0-23.0 BSA GRACIA 2023-04-27 19:20:41 2.27 sq m F TBW NILDA GALICIA 2023-04-27 19:20:41 53.54 Liters F BSA GRACIA 2023-04-27 19:20:41 2.27 sq m F TBW NILDA GALICIA 2023-04-27 19:20:41 53.54 Liters F BSA GRACIA 2023-04-27 19:20:41 2.27 sq m F TBW NILDA GALICIA 2023-04-27 19:20:41 53.54 Liters F Creatinine [Mass/volume] in Peritoneal dialysis fluid 2023-04-27 19:19:31 2.9 mg/dL F Urea nitrogen [Mass/volume] in Peritoneal fluid --24 hours post peritoneal dialysis 2023-04-27 19:19:31 37 mg/dL F Creatinine [Mass/volume] in Peritoneal dialysis fluid 2023-04-27 19:19:31 2.9 mg/dL F Urea nitrogen [Mass/volume] in Peritoneal fluid --24 hours post peritoneal dialysis 2023-04-27 19:19:31 37 mg/dL F Creatinine [Mass/volume] in Peritoneal dialysis fluid 2023-04-27 19:19:31 2.9 mg/dL F Urea nitrogen [Mass/volume] in Peritoneal fluid --24 hours post peritoneal dialysis 2023-04-27 19:19:31 37 mg/dL F Total Volume of EFFL/DIAL 2023-04-26 21:42:14 20820 mLs F PATIENT AGE 2023-04-26 21:42:14 52 Years F BODY WEIGHT (LBS) 2023-04-26 21:42:14 243 lbs F HEIGHT IN INCHES 2023-04-26 21:42:14 70 Inches F MINIMUM GOAL: KT/V PD 2023-04-26 21:42:14 1.7 F AMPUTATE FACTOR 2023-04-26 21:42:14 0 F Total Volume of EFFL/DIAL 2023-04-26 21:42:14 43778 mLs F PATIENT AGE 2023-04-26 21:42:14 52 Years F BODY WEIGHT (LBS) 2023-04-26 21:42:14 243 lbs F HEIGHT IN INCHES 2023-04-26 21:42:14 70 Inches F MINIMUM GOAL: KT/V PD 2023-04-26 21:42:14 1.7 F AMPUTATE FACTOR 2023-04-26 21:42:14 0 F PATIENT AGE 2023-04-26 21:42:14 52 Years F HEIGHT IN INCHES 2023-04-26 21:42:14 70 Inches F BODY WEIGHT (LBS) 2023-04-26 21:42:14 243 lbs F MINIMUM GOAL: KT/V PD 2023-04-26 21:42:14 1.7 F Total Volume of EFFL/DIAL 2023-04-26 21:42:14 28941 mLs F AMPUTATE FACTOR 2023-04-26 21:42:14 0 F COLLECTION TIME FOR URINE 2023-04-26 21:42:14 1440 min F TOTAL VOLUME-24 HR URINE 2023-04-26 21:42:14 900 mL F COLLECTION TIME FOR URINE 2023-04-26 21:42:14 1440 min F TOTAL VOLUME-24 HR URINE 2023-04-26 21:42:14 900 mL F COLLECTION TIME FOR URINE 2023-04-26 21:42:14 1440 min F TOTAL VOLUME-24 HR URINE 2023-04-26 21:42:14 900 mL F BUN/CREAT 2023-02-25 14:50:41 9.8 Calc F 6.9-32.9 Urea nitrogen [Mass/volume] in Serum or Plasma 2023-02-25 14:50:22 58 mg/dL F 9.0-23.0 Creatinine [Mass/volume] in Serum or Plasma 2023-02-25 14:50:22 5.94 mg/dL F 0.7-1.3 NPCR PD MALE 2022-10-26 17:34:58 0.84 G/KG/D F PNA (PD) 2022-10-26 17:34:58 90.7 g/day F nPNA (PD MALE) 2022-10-26 17:34:58 0.92 G/KG/D F PCR PD MALE 2022-10-26 17:34:58 82 g/day F Urea Gen Rate 2022-10-26 17:34:58 15 GM/D F L/WK PDF CC 2022-10-26 17:34:58 67.73 L/wk F L/WK/1.73 TOTAL 2022-10-26 17:34:58 108.5 L/WK/B F KT/V PDF (M) 2022-10-26 17:34:58 1.38 Kt/V F KT/V TOTAL (M) 2022-10-26 17:34:58 2.17 Kt/V F L/WK/1.73 PDF 2022-10-26 17:34:58 49.6 L/WK/B F nPNA (PD MALE) 2022-10-26 17:34:58 0.92 G/KG/D F PCR PD MALE 2022-10-26 17:34:58 82 g/day F Urea Gen Rate 2022-10-26 17:34:58 15 GM/D F KT/V PDF (M) 2022-10-26 17:34:58 1.38 Kt/V F L/WK PDF CC 2022-10-26 17:34:58 67.73 L/wk F L/WK/1.73 PDF 2022-10-26 17:34:58 49.6 L/WK/B F NPCR PD MALE 2022-10-26 17:34:58 0.84 G/KG/D F PNA (PD) 2022-10-26 17:34:58 90.7 g/day F L/WK/1.73 TOTAL 2022-10-26 17:34:58 108.5 L/WK/B F KT/V TOTAL (M) 2022-10-26 17:34:58 2.17 Kt/V F Creatinine [Mass/volume] in Peritoneal dialysis fluid 2022-10-26 17:34:24 3.5 mg/dL F Urea nitrogen [Mass/volume] in Peritoneal fluid --24 hours post peritoneal dialysis 2022-10-26 17:34:24 43 mg/dL F Urea nitrogen [Mass/volume] in Peritoneal fluid --24 hours post peritoneal dialysis 2022-10-26 17:34:24 43 mg/dL F Creatinine [Mass/volume] in Peritoneal dialysis fluid 2022-10-26 17:34:24 3.5 mg/dL F UREA CLR UR/BSA 2022-10-26 16:26:29 3.3 mL/min F 64.0-99.0 CRE CLR UR/BSA 2022-10-26 16:26:29 8 mL/min F 85.0-125.0 UREA CLR UR 2022-10-26 16:26:29 4.5 mL/min F CRE CLR UR 2022-10-26 16:26:29 11 mL/min F 97.0-137.0 L/WK/1.73 RESID 2022-10-26 16:26:29 58.9 L/WK/B F KT/V RESID (M) 2022-10-26 16:26:29 0.79 Kt/V F L/WK RESID CC 2022-10-26 16:26:29 80.42 L/wk F UREA CLR UR/BSA 2022-10-26 16:26:29 3.3 mL/min F 64.0-99.0 CRE CLR UR/BSA 2022-10-26 16:26:29 8 mL/min F 85.0-125.0 UREA CLR UR 2022-10-26 16:26:29 4.5 mL/min F CRE CLR UR 2022-10-26 16:26:29 11 mL/min F 97.0-137.0 L/WK/1.73 RESID 2022-10-26 16:26:29 58.9 L/WK/B F L/WK RESID CC 2022-10-26 16:26:29 80.42 L/wk F KT/V RESID (M) 2022-10-26 16:26:29 0.79 Kt/V F Urea nitrogen [Mass/volume] in Urine 2022-10-26 16:26:16 308 mg/dL F Creatinine [Mass/volume] in Urine 2022-10-26 16:26:16 74.08 mg/dL F Urea nitrogen [Mass/volume] in Urine 2022-10-26 16:26:16 308 mg/dL F Creatinine [Mass/volume] in Urine 2022-10-26 16:26:16 74.08 mg/dL F BUN/CREAT 2022-10-26 15:22:17 10.6 Calc F 6.9-32.9 BSA [place] 2022-10-26 15:22:17 2.36 sq m F TBW M[place] MALE 2022-10-26 15:22:17 57.21 Liters F BUN/CREAT 2022-10-26 15:22:17 10.6 Calc F 6.9-32.9 BSA [place] 2022-10-26 15:22:17 2.36 sq m F TBW [place] MALE 2022-10-26 15:22:17 57.21 Liters F Urea nitrogen [Mass/volume] in Serum or Plasma 2022-10-26 15:21:16 57 mg/dL F 9.0-23.0 Creatinine [Mass/volume] in Serum or Plasma 2022-10-26 15:21:16 5.39 mg/dL F 0.7-1.3 Creatinine [Mass/volume] in Serum or Plasma 2022-10-26 15:21:16 5.39 mg/dL F 0.7-1.3 Urea nitrogen [Mass/volume] in Serum or Plasma 2022-10-26 15:21:16 57 mg/dL F 9.0-23.0 COLLECTION TIME FOR URINE 2022-10-25 21:34:59 1440 min F TOTAL VOLUME-24 HR URINE 2022-10-25 21:34:59 1200 mL F Total Volume of EFFL/DIAL 2022-10-25 21:34:59 29729 mLs F PATIENT AGE 2022-10-25 21:34:59 52 Years F HEIGHT IN INCHES 2022-10-25 21:34:59 70 Inches F BODY WEIGHT (LBS) 2022-10-25 21:34:59 267 lbs F MINIMUM GOAL: KT/V PD 2022-10-25 21:34:59 1.7 F AMPUTATE FACTOR 2022-10-25 21:34:59 0 F TOTAL VOLUME-24 HR URINE 2022-10-25 21:34:59 1200 mL F Total Volume of EFFL/DIAL 2022-10-25 21:34:59 50945 mLs F HEIGHT IN INCHES 2022-10-25 21:34:59 70 Inches F AMPUTATE FACTOR 2022-10-25 21:34:59 0 F PATIENT AGE 2022-10-25 21:34:59 52 Years F COLLECTION TIME FOR URINE 2022-10-25 21:34:59 1440 min F BODY WEIGHT (LBS) 2022-10-25 21:34:59 267 lbs F MINIMUM GOAL: KT/V PD 2022-10-25 21:34:59 1.7 F BUN/CREAT 2022-09-29 14:54:00 8.8 Calc F 6.9-32.9 Urea nitrogen [Mass/volume] in Serum or Plasma 2022-09-29 14:53:50 49 mg/dL F 9.0-23.0 Creatinine [Mass/volume] in Serum or Plasma 2022-09-29 14:53:50 5.56 mg/dL F 0.7-1.3 BUN/CREAT 2022-08-25 02:58:54 8.3 Calc F 6.9-32.9 Urea nitrogen [Mass/volume] in Serum or Plasma 2022-08-25 02:57:50 44 mg/dL F 9.0-23.0 Creatinine [Mass/volume] in Serum or Plasma 2022-08-25 02:57:50 5.28 mg/dL F 0.7-1.3 Anemia Description Draw Date Result/Unit Status Ref Range Result Comments Ferritin [Mass/volume] in Serum or Plasma 2024-07-26 08:27:26 456 ng/mL F 22.0-322.0 Ferritin [Mass/volume] in Serum or Plasma 2024-07-26 08:27:26 456 ng/mL F 22.0-322.0 Ferritin [Mass/volume] in Serum or Plasma 2024-07-26 08:27:26 456 ng/mL F 22.0-322.0 TIBC 2024-07-26 07:38:31 249 ug/dL F 250.0-425.0 IRON SATURATION 2024-07-26 07:38:31 26 % F 21.0-49.0 TIBC 2024-07-26 07:38:31 249 ug/dL F 250.0-425.0 IRON SATURATION 2024-07-26 07:38:31 26 % F 21.0-49.0 TIBC 2024-07-26 07:38:31 249 ug/dL F 250.0-425.0 IRON SATURATION 2024-07-26 07:38:31 26 % F 21.0-49.0 Iron binding capacity.unsaturated [Mass/volume] in Serum or Plasma 2024-07-26 07:21:16 185 ug/dL F 75.0-360.0 Iron [Mass/volume] in Serum or Plasma 2024-07-26 07:21:16 64 ug/dL F 65.0-175.0 Iron [Mass/volume] in Serum or Plasma 2024-07-26 07:21:16 64 ug/dL F 65.0-175.0 Iron binding capacity.unsaturated [Mass/volume] in Serum or Plasma 2024-07-26 07:21:16 185 ug/dL F 75.0-360.0 Iron [Mass/volume] in Serum or Plasma 2024-07-26 07:21:16 64 ug/dL F 65.0-175.0 Iron binding capacity.unsaturated [Mass/volume] in Serum or Plasma 2024-07-26 07:21:16 185 ug/dL F 75.0-360.0 HCT CALC HGBX3 2024-07-26 03:12:39 33.6 % F 42.0-52.0 HCT CALC HGBX3 2024-07-26 03:12:39 33.6 % F 42.0-52.0 HCT CALC HGBX3 2024-07-26 03:12:39 33.6 % F 42.0-52.0 MCHC [Mass/volume] by Automated count 2024-07-26 03:11:12 31.8 g/dL F 29.6-35.3 MCH [Entitic mass] by Automated count 2024-07-26 03:11:12 30.3 pg F 25.9-34.2 Erythrocytes [#/volume] in Blood by Automated count 2024-07-26 03:11:12 3.7 x 10'6 cells/uL F 4.6-6.2 Erythrocyte distribution width [Ratio] by Automated count 2024-07-26 03:11:12 14.8 % F 11.0-15.0 Erythrocytes [#/volume] in Blood by Automated count 2024-07-26 03:11:12 3.7 x 10'6 cells/uL F 4.6-6.2 Hematocrit [Volume Fraction] of Blood by Automated count 2024-07-26 03:11:12 35.3 % F 41.0-53.0 MCV [Entitic volume] by Automated count 2024-07-26 03:11:12 95.3 fL F 80.0-100.0 MCH [Entitic mass] by Automated count 2024-07-26 03:11:12 30.3 pg F 25.9-34.2 MCHC [Mass/volume] by Automated count 2024-07-26 03:11:12 31.8 g/dL F 29.6-35.3 Hemoglobin [Mass/volume] in Blood 2024-07-26 03:11:12 11.2 g/dL F 14.0-18.0 Platelets [#/volume] in Blood by Automated count 2024-07-26 03:11:12 283 x 10'3 cells/uL F 140.0-450.0 Reticulocytes/100 erythrocytes in Blood by Automated count 2024-07-26 03:11:12 3.52 % F 0.7-2.5 Erythrocyte distribution width [Ratio] by Automated count 2024-07-26 03:11:12 14.8 % F 11.0-15.0 Erythrocytes [#/volume] in Blood by Automated count 2024-07-26 03:11:12 3.7 x 10'6 cells/uL F 4.6-6.2 Hematocrit [Volume Fraction] of Blood by Automated count 2024-07-26 03:11:12 35.3 % F 41.0-53.0 Hemoglobin [Mass/volume] in Blood 2024-07-26 03:11:12 11.2 g/dL F 14.0-18.0 MCV [Entitic volume] by Automated count 2024-07-26 03:11:12 95.3 fL F 80.0-100.0 MCH [Entitic mass] by Automated count 2024-07-26 03:11:12 30.3 pg F 25.9-34.2 MCHC [Mass/volume] by Automated count 2024-07-26 03:11:12 31.8 g/dL F 29.6-35.3 Platelets [#/volume] in Blood by Automated count 2024-07-26 03:11:12 283 x 10'3 cells/uL F 140.0-450.0 Reticulocytes/100 erythrocytes in Blood by Automated count 2024-07-26 03:11:12 3.52 % F 0.7-2.5 Reticulocytes/100 erythrocytes in Blood by Automated count 2024-07-26 03:11:12 3.52 % F 0.7-2.5 Erythrocyte distribution width [Ratio] by Automated count 2024-07-26 03:11:12 14.8 % F 11.0-15.0 Hemoglobin [Mass/volume] in Blood 2024-07-26 03:11:12 11.2 g/dL F 14.0-18.0 MCV [Entitic volume] by Automated count 2024-07-26 03:11:12 95.3 fL F 80.0-100.0 Platelets [#/volume] in Blood by Automated count 2024-07-26 03:11:12 283 x 10'3 cells/uL F 140.0-450.0 Hematocrit [Volume Fraction] of Blood by Automated count 2024-07-26 03:11:12 35.3 % F 41.0-53.0 Ferritin [Mass/volume] in Serum or Plasma 2024-06-28 07:43:26 410 ng/mL F 22.0-322.0 Ferritin [Mass/volume] in Serum or Plasma 2024-06-28 07:43:26 410 ng/mL F 22.0-322.0 Ferritin [Mass/volume] in Serum or Plasma 2024-06-28 07:43:26 410 ng/mL F 22.0-322.0 IRON SATURATION 2024-06-27 16:43:38 27 % F 21.0-49.0 TIBC 2024-06-27 16:43:38 287 ug/dL F 250.0-425.0 IRON SATURATION 2024-06-27 16:43:38 27 % F 21.0-49.0 TIBC 2024-06-27 16:43:38 287 ug/dL F 250.0-425.0 IRON SATURATION 2024-06-27 16:43:38 27 % F 21.0-49.0 TIBC 2024-06-27 16:43:38 287 ug/dL F 250.0-425.0 Iron [Mass/volume] in Serum or Plasma 2024-06-27 16:40:15 77 ug/dL F 65.0-175.0 Iron binding capacity.unsaturated [Mass/volume] in Serum or Plasma 2024-06-27 16:40:15 210 ug/dL F 75.0-360.0 Iron [Mass/volume] in Serum or Plasma 2024-06-27 16:40:15 77 ug/dL F 65.0-175.0 Iron binding capacity.unsaturated [Mass/volume] in Serum or Plasma 2024-06-27 16:40:15 210 ug/dL F 75.0-360.0 Iron [Mass/volume] in Serum or Plasma 2024-06-27 16:40:15 77 ug/dL F 65.0-175.0 Iron binding capacity.unsaturated [Mass/volume] in Serum or Plasma 2024-06-27 16:40:15 210 ug/dL F 75.0-360.0 HCT CALC HGBX3 2024-06-27 15:53:19 32.7 % F 42.0-52.0 HCT CALC HGBX3 2024-06-27 15:53:19 32.7 % F 42.0-52.0 HCT CALC HGBX3 2024-06-27 15:53:19 32.7 % F 42.0-52.0 Erythrocyte distribution width [Ratio] by Automated count 2024-06-27 15:52:13 14.9 % F 11.0-15.0 Erythrocytes [#/volume] in Blood by Automated count 2024-06-27 15:52:13 3.68 x 10'6 cells/uL F 4.6-6.2 Hematocrit [Volume Fraction] of Blood by Automated count 2024-06-27 15:52:13 34.5 % F 41.0-53.0 MCV [Entitic volume] by Automated count 2024-06-27 15:52:13 93.7 fL F 80.0-100.0 MCH [Entitic mass] by Automated count 2024-06-27 15:52:13 29.7 pg F 25.9-34.2 MCHC [Mass/volume] by Automated count 2024-06-27 15:52:13 31.7 g/dL F 29.6-35.3 Hemoglobin [Mass/volume] in Blood 2024-06-27 15:52:13 10.9 g/dL F 14.0-18.0 Platelets [#/volume] in Blood by Automated count 2024-06-27 15:52:13 206 x 10'3 cells/uL F 140.0-450.0 Reticulocytes/100 erythrocytes in Blood by Automated count 2024-06-27 15:52:13 2.01 % F 0.7-2.5 Erythrocyte distribution width [Ratio] by Automated count 2024-06-27 15:52:13 14.9 % F 11.0-15.0 Erythrocytes [#/volume] in Blood by Automated count 2024-06-27 15:52:13 3.68 x 10'6 cells/uL F 4.6-6.2 Hematocrit [Volume Fraction] of Blood by Automated count 2024-06-27 15:52:13 34.5 % F 41.0-53.0 Hemoglobin [Mass/volume] in Blood 2024-06-27 15:52:13 10.9 g/dL F 14.0-18.0 MCV [Entitic volume] by Automated count 2024-06-27 15:52:13 93.7 fL F 80.0-100.0 MCH [Entitic mass] by Automated count 2024-06-27 15:52:13 29.7 pg F 25.9-34.2 MCHC [Mass/volume] by Automated count 2024-06-27 15:52:13 31.7 g/dL F 29.6-35.3 Platelets [#/volume] in Blood by Automated count 2024-06-27 15:52:13 206 x 10'3 cells/uL F 140.0-450.0 Reticulocytes/100 erythrocytes in Blood by Automated count 2024-06-27 15:52:13 2.01 % F 0.7-2.5 Erythrocyte distribution width [Ratio] by Automated count 2024-06-27 15:52:13 14.9 % F 11.0-15.0 Hemoglobin [Mass/volume] in Blood 2024-06-27 15:52:13 10.9 g/dL F 14.0-18.0 Hematocrit [Volume Fraction] of Blood by Automated count 2024-06-27 15:52:13 34.5 % F 41.0-53.0 Erythrocytes [#/volume] in Blood by Automated count 2024-06-27 15:52:13 3.68 x 10'6 cells/uL F 4.6-6.2 MCV [Entitic volume] by Automated count 2024-06-27 15:52:13 93.7 fL F 80.0-100.0 MCH [Entitic mass] by Automated count 2024-06-27 15:52:13 29.7 pg F 25.9-34.2 MCHC [Mass/volume] by Automated count 2024-06-27 15:52:13 31.7 g/dL F 29.6-35.3 Platelets [#/volume] in Blood by Automated count 2024-06-27 15:52:13 206 x 10'3 cells/uL F 140.0-450.0 Reticulocytes/100 erythrocytes in Blood by Automated count 2024-06-27 15:52:13 2.01 % F 0.7-2.5 Ferritin [Mass/volume] in Serum or Plasma 2024-05-24 04:47:46 431 ng/mL F 22.0-322.0 Ferritin [Mass/volume] in Serum or Plasma 2024-05-24 04:47:46 431 ng/mL F 22.0-322.0 IRON SATURATION 2024-05-23 16:08:26 20 % F 21.0-49.0 TIBC 2024-05-23 16:08:26 263 ug/dL F 250.0-425.0 IRON SATURATION 2024-05-23 16:08:26 20 % F 21.0-49.0 TIBC 2024-05-23 16:08:26 263 ug/dL F 250.0-425.0 Iron [Mass/volume] in Serum or Plasma 2024-05-23 16:07:28 52 ug/dL F 65.0-175.0 Iron binding capacity.unsaturated [Mass/volume] in Serum or Plasma 2024-05-23 16:07:28 211 ug/dL F 75.0-360.0 Iron [Mass/volume] in Serum or Plasma 2024-05-23 16:07:28 52 ug/dL F 65.0-175.0 Iron binding capacity.unsaturated [Mass/volume] in Serum or Plasma 2024-05-23 16:07:28 211 ug/dL F 75.0-360.0 HCT CALC HGBX3 2024-05-23 15:08:00 34.2 % F 42.0-52.0 HCT CALC HGBX3 2024-05-23 15:08:00 34.2 % F 42.0-52.0 Erythrocyte distribution width [Ratio] by Automated count 2024-05-23 15:07:06 16.1 % F 11.0-15.0 Erythrocytes [#/volume] in Blood by Automated count 2024-05-23 15:07:06 3.76 x 10'6 cells/uL F 4.6-6.2 Hematocrit [Volume Fraction] of Blood by Automated count 2024-05-23 15:07:06 34.7 % F 41.0-53.0 Hemoglobin [Mass/volume] in Blood 2024-05-23 15:07:06 11.4 g/dL F 14.0-18.0 MCV [Entitic volume] by Automated count 2024-05-23 15:07:06 92.2 fL F 80.0-100.0 MCH [Entitic mass] by Automated count 2024-05-23 15:07:06 30.3 pg F 25.9-34.2 MCHC [Mass/volume] by Automated count 2024-05-23 15:07:06 32.9 g/dL F 29.6-35.3 Platelets [#/volume] in Blood by Automated count 2024-05-23 15:07:06 202 x 10'3 cells/uL F 140.0-450.0 Erythrocyte distribution width [Ratio] by Automated count 2024-05-23 15:07:06 16.1 % F 11.0-15.0 Erythrocytes [#/volume] in Blood by Automated count 2024-05-23 15:07:06 3.76 x 10'6 cells/uL F 4.6-6.2 Hemoglobin [Mass/volume] in Blood 2024-05-23 15:07:06 11.4 g/dL F 14.0-18.0 Hematocrit [Volume Fraction] of Blood by Automated count 2024-05-23 15:07:06 34.7 % F 41.0-53.0 MCV [Entitic volume] by Automated count 2024-05-23 15:07:06 92.2 fL F 80.0-100.0 MCH [Entitic mass] by Automated count 2024-05-23 15:07:06 30.3 pg F 25.9-34.2 MCHC [Mass/volume] by Automated count 2024-05-23 15:07:06 32.9 g/dL F 29.6-35.3 Platelets [#/volume] in Blood by Automated count 2024-05-23 15:07:06 202 x 10'3 cells/uL F 140.0-450.0 Reticulocytes/100 erythrocytes in Blood by Automated count 2024-05-23 15:07:05 2.87 % F 0.7-2.5 Reticulocytes/100 erythrocytes in Blood by Automated count 2024-05-23 15:07:05 2.87 % F 0.7-2.5 IRON SATURATION 2024-02-22 07:39:40 39 % F 21.0-49.0 TIBC 2024-02-22 07:39:40 271 ug/dL F 250.0-425.0 IRON SATURATION 2024-02-22 07:39:40 39 % F 21.0-49.0 TIBC 2024-02-22 07:39:40 271 ug/dL F 250.0-425.0 IRON SATURATION 2024-02-22 07:39:40 39 % F 21.0-49.0 TIBC 2024-02-22 07:39:40 271 ug/dL F 250.0-425.0 Iron binding capacity.unsaturated [Mass/volume] in Serum or Plasma 2024-02-22 07:31:47 166 ug/dL F 75.0-360.0 Iron binding capacity.unsaturated [Mass/volume] in Serum or Plasma 2024-02-22 07:31:47 166 ug/dL F 75.0-360.0 Iron binding capacity.unsaturated [Mass/volume] in Serum or Plasma 2024-02-22 07:31:47 166 ug/dL F 75.0-360.0 Iron [Mass/volume] in Serum or Plasma 2024-02-22 06:56:45 105 ug/dL F 65.0-175.0 Iron [Mass/volume] in Serum or Plasma 2024-02-22 06:56:45 105 ug/dL F 65.0-175.0 Iron [Mass/volume] in Serum or Plasma 2024-02-22 06:56:45 105 ug/dL F 65.0-175.0 Ferritin [Mass/volume] in Serum or Plasma 2024-02-21 07:36:32 696 ng/mL F 22.0-322.0 Ferritin [Mass/volume] in Serum or Plasma 2024-02-21 07:36:32 696 ng/mL F 22.0-322.0 Ferritin [Mass/volume] in Serum or Plasma 2024-02-21 07:36:32 696 ng/mL F 22.0-322.0 HCT CALC HGBX3 2024-02-21 04:48:35 31.2 % F 42.0-52.0 HCT CALC HGBX3 2024-02-21 04:48:35 31.2 % F 42.0-52.0 HCT CALC HGBX3 2024-02-21 04:48:35 31.2 % F 42.0-52.0 Erythrocyte distribution width [Ratio] by Automated count 2024-02-21 04:48:30 15.4 % F 11.0-15.0 Erythrocytes [#/volume] in Blood by Automated count 2024-02-21 04:48:30 3.63 x 10'6 cells/uL F 4.6-6.2 Hematocrit [Volume Fraction] of Blood by Automated count 2024-02-21 04:48:30 34.3 % F 41.0-53.0 Hemoglobin [Mass/volume] in Blood 2024-02-21 04:48:30 10.4 g/dL F 14.0-18.0 MCV [Entitic volume] by Automated count 2024-02-21 04:48:30 94.6 fL F 80.0-100.0 MCH [Entitic mass] by Automated count 2024-02-21 04:48:30 28.8 pg F 25.9-34.2 MCHC [Mass/volume] by Automated count 2024-02-21 04:48:30 30.4 g/dL F 29.6-35.3 Platelets [#/volume] in Blood by Automated count 2024-02-21 04:48:30 223 x 10'3 cells/uL F 140.0-450.0 Reticulocytes/100 erythrocytes in Blood by Automated count 2024-02-21 04:48:30 1.86 % F 0.7-2.5 Erythrocytes [#/volume] in Blood by Automated count 2024-02-21 04:48:30 3.63 x 10'6 cells/uL F 4.6-6.2 Erythrocyte distribution width [Ratio] by Automated count 2024-02-21 04:48:30 15.4 % F 11.0-15.0 Hematocrit [Volume Fraction] of Blood by Automated count 2024-02-21 04:48:30 34.3 % F 41.0-53.0 Hemoglobin [Mass/volume] in Blood 2024-02-21 04:48:30 10.4 g/dL F 14.0-18.0 MCV [Entitic volume] by Automated count 2024-02-21 04:48:30 94.6 fL F 80.0-100.0 MCH [Entitic mass] by Automated count 2024-02-21 04:48:30 28.8 pg F 25.9-34.2 MCHC [Mass/volume] by Automated count 2024-02-21 04:48:30 30.4 g/dL F 29.6-35.3 Platelets [#/volume] in Blood by Automated count 2024-02-21 04:48:30 223 x 10'3 cells/uL F 140.0-450.0 Reticulocytes/100 erythrocytes in Blood by Automated count 2024-02-21 04:48:30 1.86 % F 0.7-2.5 Erythrocyte distribution width [Ratio] by Automated count 2024-02-21 04:48:30 15.4 % F 11.0-15.0 Erythrocytes [#/volume] in Blood by Automated count 2024-02-21 04:48:30 3.63 x 10'6 cells/uL F 4.6-6.2 Hemoglobin [Mass/volume] in Blood 2024-02-21 04:48:30 10.4 g/dL F 14.0-18.0 Hematocrit [Volume Fraction] of Blood by Automated count 2024-02-21 04:48:30 34.3 % F 41.0-53.0 MCH [Entitic mass] by Automated count 2024-02-21 04:48:30 28.8 pg F 25.9-34.2 MCV [Entitic volume] by Automated count 2024-02-21 04:48:30 94.6 fL F 80.0-100.0 MCHC [Mass/volume] by Automated count 2024-02-21 04:48:30 30.4 g/dL F 29.6-35.3 Platelets [#/volume] in Blood by Automated count 2024-02-21 04:48:30 223 x 10'3 cells/uL F 140.0-450.0 Reticulocytes/100 erythrocytes in Blood by Automated count 2024-02-21 04:48:30 1.86 % F 0.7-2.5 IRON SATURATION 2023-12-22 05:17:24 13 % F 21.0-49.0 TIBC 2023-12-22 05:17:24 284 ug/dL F 250.0-425.0 IRON SATURATION 2023-12-22 05:17:24 13 % F 21.0-49.0 TIBC 2023-12-22 05:17:24 284 ug/dL F 250.0-425.0 Iron [Mass/volume] in Serum or Plasma 2023-12-22 05:00:15 38 ug/dL F 65.0-175.0 Iron binding capacity.unsaturated [Mass/volume] in Serum or Plasma 2023-12-22 05:00:15 246 ug/dL F 75.0-360.0 Iron [Mass/volume] in Serum or Plasma 2023-12-22 05:00:15 38 ug/dL F 65.0-175.0 Iron binding capacity.unsaturated [Mass/volume] in Serum or Plasma 2023-12-22 05:00:15 246 ug/dL F 75.0-360.0 Ferritin [Mass/volume] in Serum or Plasma 2023-12-22 01:00:27 566 ng/mL F 22.0-322.0 Ferritin [Mass/volume] in Serum or Plasma 2023-12-22 01:00:27 566 ng/mL F 22.0-322.0 HCT CALC HGBX3 2023-12-21 22:52:37 32.4 % F 42.0-52.0 HCT CALC HGBX3 2023-12-21 22:52:37 32.4 % F 42.0-52.0 Erythrocyte distribution width [Ratio] by Automated count 2023-12-21 22:51:41 15.2 % F 11.0-15.0 Erythrocytes [#/volume] in Blood by Automated count 2023-12-21 22:51:41 3.63 x 10'6 cells/uL F 4.6-6.2 Hematocrit [Volume Fraction] of Blood by Automated count 2023-12-21 22:51:41 34 % F 41.0-53.0 Hemoglobin [Mass/volume] in Blood 2023-12-21 22:51:41 10.8 g/dL F 14.0-18.0 MCV [Entitic volume] by Automated count 2023-12-21 22:51:41 93.9 fL F 80.0-100.0 MCH [Entitic mass] by Automated count 2023-12-21 22:51:41 29.8 pg F 25.9-34.2 Platelets [#/volume] in Blood by Automated count 2023-12-21 22:51:41 232 x 10'3 cells/uL F 140.0-450.0 MCHC [Mass/volume] by Automated count 2023-12-21 22:51:41 31.8 g/dL F 29.6-35.3 Reticulocytes/100 erythrocytes in Blood by Automated count 2023-12-21 22:51:41 0.89 % F 0.7-2.5 Erythrocyte distribution width [Ratio] by Automated count 2023-12-21 22:51:41 15.2 % F 11.0-15.0 Erythrocytes [#/volume] in Blood by Automated count 2023-12-21 22:51:41 3.63 x 10'6 cells/uL F 4.6-6.2 Hematocrit [Volume Fraction] of Blood by Automated count 2023-12-21 22:51:41 34 % F 41.0-53.0 MCV [Entitic volume] by Automated count 2023-12-21 22:51:41 93.9 fL F 80.0-100.0 Hemoglobin [Mass/volume] in Blood 2023-12-21 22:51:41 10.8 g/dL F 14.0-18.0 MCH [Entitic mass] by Automated count 2023-12-21 22:51:41 29.8 pg F 25.9-34.2 MCHC [Mass/volume] by Automated count 2023-12-21 22:51:41 31.8 g/dL F 29.6-35.3 Platelets [#/volume] in Blood by Automated count 2023-12-21 22:51:41 232 x 10'3 cells/uL F 140.0-450.0 Reticulocytes/100 erythrocytes in Blood by Automated count 2023-12-21 22:51:41 0.89 % F 0.7-2.5 Ferritin [Mass/volume] in Serum or Plasma 2023-11-12 03:20:13 662 ng/mL F 22.0-322.0 Ferritin [Mass/volume] in Serum or Plasma 2023-11-12 03:20:13 662 ng/mL F 22.0-322.0 Ferritin [Mass/volume] in Serum or Plasma 2023-11-12 03:20:13 662 ng/mL F 22.0-322.0 IRON SATURATION 2023-11-11 18:11:10 20 % F 21.0-49.0 TIBC 2023-11-11 18:11:10 249 ug/dL F 250.0-425.0 IRON SATURATION 2023-11-11 18:11:10 20 % F 21.0-49.0 TIBC 2023-11-11 18:11:10 249 ug/dL F 250.0-425.0 IRON SATURATION 2023-11-11 18:11:10 20 % F 21.0-49.0 TIBC 2023-11-11 18:11:10 249 ug/dL F 250.0-425.0 Iron [Mass/volume] in Serum or Plasma 2023-11-11 18:10:56 49 ug/dL F 65.0-175.0 Iron binding capacity.unsaturated [Mass/volume] in Serum or Plasma 2023-11-11 18:10:56 200 ug/dL F 75.0-360.0 Iron [Mass/volume] in Serum or Plasma 2023-11-11 18:10:56 49 ug/dL F 65.0-175.0 Iron binding capacity.unsaturated [Mass/volume] in Serum or Plasma 2023-11-11 18:10:56 200 ug/dL F 75.0-360.0 Iron [Mass/volume] in Serum or Plasma 2023-11-11 18:10:56 49 ug/dL F 65.0-175.0 Iron binding capacity.unsaturated [Mass/volume] in Serum or Plasma 2023-11-11 18:10:56 200 ug/dL F 75.0-360.0 HCT CALC HGBX3 2023-11-11 15:13:10 27.6 % F 42.0-52.0 HCT CALC HGBX3 2023-11-11 15:13:10 27.6 % F 42.0-52.0 HCT CALC HGBX3 2023-11-11 15:13:10 27.6 % F 42.0-52.0 Erythrocyte distribution width [Ratio] by Automated count 2023-11-11 15:12:36 14.6 % F 11.0-15.0 Hematocrit [Volume Fraction] of Blood by Automated count 2023-11-11 15:12:36 28.9 % F 41.0-53.0 Erythrocytes [#/volume] in Blood by Automated count 2023-11-11 15:12:36 3.13 x 10'6 cells/uL F 4.6-6.2 Hemoglobin [Mass/volume] in Blood 2023-11-11 15:12:36 9.2 g/dL F 14.0-18.0 Platelets [#/volume] in Blood by Automated count 2023-11-11 15:12:36 355 x 10'3 cells/uL F 140.0-450.0 Erythrocyte distribution width [Ratio] by Automated count 2023-11-11 15:12:36 14.6 % F 11.0-15.0 Erythrocytes [#/volume] in Blood by Automated count 2023-11-11 15:12:36 3.13 x 10'6 cells/uL F 4.6-6.2 Hematocrit [Volume Fraction] of Blood by Automated count 2023-11-11 15:12:36 28.9 % F 41.0-53.0 Hemoglobin [Mass/volume] in Blood 2023-11-11 15:12:36 9.2 g/dL F 14.0-18.0 Platelets [#/volume] in Blood by Automated count 2023-11-11 15:12:36 355 x 10'3 cells/uL F 140.0-450.0 Erythrocytes [#/volume] in Blood by Automated count 2023-11-11 15:12:36 3.13 x 10'6 cells/uL F 4.6-6.2 Erythrocyte distribution width [Ratio] by Automated count 2023-11-11 15:12:36 14.6 % F 11.0-15.0 Hemoglobin [Mass/volume] in Blood 2023-11-11 15:12:36 9.2 g/dL F 14.0-18.0 Hematocrit [Volume Fraction] of Blood by Automated count 2023-11-11 15:12:36 28.9 % F 41.0-53.0 Platelets [#/volume] in Blood by Automated count 2023-11-11 15:12:36 355 x 10'3 cells/uL F 140.0-450.0 MCV [Entitic volume] by Automated count 2023-11-11 15:12:35 92.2 fL F 80.0-100.0 MCH [Entitic mass] by Automated count 2023-11-11 15:12:35 29.3 pg F 25.9-34.2 MCHC [Mass/volume] by Automated count 2023-11-11 15:12:35 31.7 g/dL F 29.6-35.3 Reticulocytes/100 erythrocytes in Blood by Automated count 2023-11-11 15:12:35 2.06 % F 0.7-2.5 MCV [Entitic volume] by Automated count 2023-11-11 15:12:35 92.2 fL F 80.0-100.0 MCH [Entitic mass] by Automated count 2023-11-11 15:12:35 29.3 pg F 25.9-34.2 MCHC [Mass/volume] by Automated count 2023-11-11 15:12:35 31.7 g/dL F 29.6-35.3 Reticulocytes/100 erythrocytes in Blood by Automated count 2023-11-11 15:12:35 2.06 % F 0.7-2.5 Reticulocytes/100 erythrocytes in Blood by Automated count 2023-11-11 15:12:35 2.06 % F 0.7-2.5 MCH [Entitic mass] by Automated count 2023-11-11 15:12:35 29.3 pg F 25.9-34.2 MCHC [Mass/volume] by Automated count 2023-11-11 15:12:35 31.7 g/dL F 29.6-35.3 MCV [Entitic volume] by Automated count 2023-11-11 15:12:35 92.2 fL F 80.0-100.0 IRON SATURATION 2023-09-01 08:31:10 37 % F 21.0-49.0 TIBC 2023-09-01 08:31:10 269 ug/dL F 250.0-425.0 IRON SATURATION 2023-09-01 08:31:10 37 % F 21.0-49.0 TIBC 2023-09-01 08:31:10 269 ug/dL F 250.0-425.0 Iron [Mass/volume] in Serum or Plasma 2023-09-01 08:11:52 99 ug/dL F 65.0-175.0 Iron binding capacity.unsaturated [Mass/volume] in Serum or Plasma 2023-09-01 08:11:52 170 ug/dL F 75.0-360.0 Iron [Mass/volume] in Serum or Plasma 2023-09-01 08:11:52 99 ug/dL F 65.0-175.0 Iron binding capacity.unsaturated [Mass/volume] in Serum or Plasma 2023-09-01 08:11:52 170 ug/dL F 75.0-360.0 HCT CALC HGBX3 2023-08-31 21:01:48 36 % F 42.0-52.0 HCT CALC HGBX3 2023-08-31 21:01:48 36 % F 42.0-52.0 Erythrocytes [#/volume] in Blood by Automated count 2023-08-31 21:01:19 4.05 x 10'6 cells/uL F 4.6-6.2 Hematocrit [Volume Fraction] of Blood by Automated count 2023-08-31 21:01:19 37 % F 41.0-53.0 Hemoglobin [Mass/volume] in Blood 2023-08-31 21:01:19 12 g/dL F 14.0-18.0 MCV [Entitic volume] by Automated count 2023-08-31 21:01:19 91.5 fL F 80.0-100.0 MCH [Entitic mass] by Automated count 2023-08-31 21:01:19 29.7 pg F 25.9-34.2 MCHC [Mass/volume] by Automated count 2023-08-31 21:01:19 32.5 g/dL F 29.6-35.3 Reticulocytes/100 erythrocytes in Blood by Automated count 2023-08-31 21:01:19 2.73 % F 0.7-2.5 Erythrocytes [#/volume] in Blood by Automated count 2023-08-31 21:01:19 4.05 x 10'6 cells/uL F 4.6-6.2 Hematocrit [Volume Fraction] of Blood by Automated count 2023-08-31 21:01:19 37 % F 41.0-53.0 Hemoglobin [Mass/volume] in Blood 2023-08-31 21:01:19 12 g/dL F 14.0-18.0 MCV [Entitic volume] by Automated count 2023-08-31 21:01:19 91.5 fL F 80.0-100.0 MCH [Entitic mass] by Automated count 2023-08-31 21:01:19 29.7 pg F 25.9-34.2 MCHC [Mass/volume] by Automated count 2023-08-31 21:01:19 32.5 g/dL F 29.6-35.3 Reticulocytes/100 erythrocytes in Blood by Automated count 2023-08-31 21:01:19 2.73 % F 0.7-2.5 Erythrocyte distribution width [Ratio] by Automated count 2023-08-31 21:01:17 14.1 % F 11.0-15.0 Platelets [#/volume] in Blood by Automated count 2023-08-31 21:01:17 219 x 10'3 cells/uL F 140.0-450.0 Erythrocyte distribution width [Ratio] by Automated count 2023-08-31 21:01:17 14.1 % F 11.0-15.0 Platelets [#/volume] in Blood by Automated count 2023-08-31 21:01:17 219 x 10'3 cells/uL F 140.0-450.0 Ferritin [Mass/volume] in Serum or Plasma 2023-08-31 07:16:06 781 ng/mL F 22.0-322.0 Ferritin [Mass/volume] in Serum or Plasma 2023-08-31 07:16:06 781 ng/mL F 22.0-322.0 IRON SATURATION 2023-04-28 07:27:52 35 % F 21.0-49.0 TIBC 2023-04-28 07:27:52 254 ug/dL F 250.0-425.0 IRON SATURATION 2023-04-28 07:27:52 35 % F 21.0-49.0 TIBC 2023-04-28 07:27:52 254 ug/dL F 250.0-425.0 TIBC 2023-04-28 07:27:52 254 ug/dL F 250.0-425.0 IRON SATURATION 2023-04-28 07:27:52 35 % F 21.0-49.0 Iron [Mass/volume] in Serum or Plasma 2023-04-28 07:19:19 88 ug/dL F 65.0-175.0 Iron binding capacity.unsaturated [Mass/volume] in Serum or Plasma 2023-04-28 07:19:19 166 ug/dL F 75.0-360.0 Iron [Mass/volume] in Serum or Plasma 2023-04-28 07:19:19 88 ug/dL F 65.0-175.0 Iron binding capacity.unsaturated [Mass/volume] in Serum or Plasma 2023-04-28 07:19:19 166 ug/dL F 75.0-360.0 Iron [Mass/volume] in Serum or Plasma 2023-04-28 07:19:19 88 ug/dL F 65.0-175.0 Iron binding capacity.unsaturated [Mass/volume] in Serum or Plasma 2023-04-28 07:19:19 166 ug/dL F 75.0-360.0 Ferritin [Mass/volume] in Serum or Plasma 2023-04-28 02:45:27 571 ng/mL F 22.0-322.0 Ferritin [Mass/volume] in Serum or Plasma 2023-04-28 02:45:27 571 ng/mL F 22.0-322.0 Ferritin [Mass/volume] in Serum or Plasma 2023-04-28 02:45:27 571 ng/mL F 22.0-322.0 HCT CALC HGBX3 2023-04-28 02:04:48 39 % F 42.0-52.0 HCT CALC HGBX3 2023-04-28 02:04:48 39 % F 42.0-52.0 HCT CALC HGBX3 2023-04-28 02:04:48 39 % F 42.0-52.0 Erythrocyte distribution width [Ratio] by Automated count 2023-04-28 02:04:38 13.4 % F 11.0-15.0 Erythrocytes [#/volume] in Blood by Automated count 2023-04-28 02:04:38 4.36 x 10'6 cells/uL F 4.6-6.2 Hemoglobin [Mass/volume] in Blood 2023-04-28 02:04:38 13 g/dL F 14.0-18.0 Hematocrit [Volume Fraction] of Blood by Automated count 2023-04-28 02:04:38 38.9 % F 41.0-53.0 MCH [Entitic mass] by Automated count 2023-04-28 02:04:38 29.9 pg F 25.9-34.2 MCHC [Mass/volume] by Automated count 2023-04-28 02:04:38 33.5 g/dL F 29.6-35.3 Platelets [#/volume] in Blood by Automated count 2023-04-28 02:04:38 228 x 10'3 cells/uL F 140.0-450.0 MCV [Entitic volume] by Automated count 2023-04-28 02:04:38 89.3 fL F 80.0-100.0 Reticulocytes/100 erythrocytes in Blood by Automated count 2023-04-28 02:04:38 2.29 % F 0.7-2.5 Erythrocyte distribution width [Ratio] by Automated count 2023-04-28 02:04:38 13.4 % F 11.0-15.0 Erythrocytes [#/volume] in Blood by Automated count 2023-04-28 02:04:38 4.36 x 10'6 cells/uL F 4.6-6.2 Hematocrit [Volume Fraction] of Blood by Automated count 2023-04-28 02:04:38 38.9 % F 41.0-53.0 MCH [Entitic mass] by Automated count 2023-04-28 02:04:38 29.9 pg F 25.9-34.2 MCV [Entitic volume] by Automated count 2023-04-28 02:04:38 89.3 fL F 80.0-100.0 Hemoglobin [Mass/volume] in Blood 2023-04-28 02:04:38 13 g/dL F 14.0-18.0 Platelets [#/volume] in Blood by Automated count 2023-04-28 02:04:38 228 x 10'3 cells/uL F 140.0-450.0 MCHC [Mass/volume] by Automated count 2023-04-28 02:04:38 33.5 g/dL F 29.6-35.3 Reticulocytes/100 erythrocytes in Blood by Automated count 2023-04-28 02:04:38 2.29 % F 0.7-2.5 Erythrocyte distribution width [Ratio] by Automated count 2023-04-28 02:04:38 13.4 % F 11.0-15.0 Erythrocytes [#/volume] in Blood by Automated count 2023-04-28 02:04:38 4.36 x 10'6 cells/uL F 4.6-6.2 MCV [Entitic volume] by Automated count 2023-04-28 02:04:38 89.3 fL F 80.0-100.0 MCH [Entitic mass] by Automated count 2023-04-28 02:04:38 29.9 pg F 25.9-34.2 Hemoglobin [Mass/volume] in Blood 2023-04-28 02:04:38 13 g/dL F 14.0-18.0 Platelets [#/volume] in Blood by Automated count 2023-04-28 02:04:38 228 x 10'3 cells/uL F 140.0-450.0 Reticulocytes/100 erythrocytes in Blood by Automated count 2023-04-28 02:04:38 2.29 % F 0.7-2.5 Hematocrit [Volume Fraction] of Blood by Automated count 2023-04-28 02:04:38 38.9 % F 41.0-53.0 MCHC [Mass/volume] by Automated count 2023-04-28 02:04:38 33.5 g/dL F 29.6-35.3 IRON SATURATION 2023-02-25 19:15:51 23 % F 21.0-49.0 TIBC 2023-02-25 19:15:51 247 ug/dL F 250.0-425.0 Iron [Mass/volume] in Serum or Plasma 2023-02-25 19:13:48 58 ug/dL F 65.0-175.0 Iron binding capacity.unsaturated [Mass/volume] in Serum or Plasma 2023-02-25 19:13:48 189 ug/dL F 75.0-360.0 Ferritin [Mass/volume] in Serum or Plasma 2023-02-25 06:41:11 529 ng/mL F 22.0-322.0 HCT CALC HGBX3 2023-02-24 19:51:30 39.9 % F 42.0-52.0 Erythrocyte distribution width [Ratio] by Automated count 2023-02-24 19:50:22 13.7 % F 11.0-15.0 Erythrocytes [#/volume] in Blood by Automated count 2023-02-24 19:50:22 4.54 x 10'6 cells/uL F 4.6-6.2 Hematocrit [Volume Fraction] of Blood by Automated count 2023-02-24 19:50:22 40.2 % F 41.0-53.0 Hemoglobin [Mass/volume] in Blood 2023-02-24 19:50:22 13.3 g/dL F 14.0-18.0 MCV [Entitic volume] by Automated count 2023-02-24 19:50:22 88.5 fL F 80.0-100.0 MCH [Entitic mass] by Automated count 2023-02-24 19:50:22 29.3 pg F 25.9-34.2 Platelets [#/volume] in Blood by Automated count 2023-02-24 19:50:22 244 x 10'3 cells/uL F 140.0-450.0 MCHC [Mass/volume] by Automated count 2023-02-24 19:50:22 33.2 g/dL F 29.6-35.3 Reticulocytes/100 erythrocytes in Blood by Automated count 2023-02-24 19:50:22 3.33 % F 0.7-2.5 IRON SATURATION 2022-10-27 03:24:55 28 % F 21.0-49.0 TIBC 2022-10-27 03:24:55 232 ug/dL F 250.0-425.0 IRON SATURATION 2022-10-27 03:24:55 28 % F 21.0-49.0 TIBC 2022-10-27 03:24:55 232 ug/dL F 250.0-425.0 Iron [Mass/volume] in Serum or Plasma 2022-10-27 03:21:58 65 ug/dL F 65.0-175.0 Iron binding capacity.unsaturated [Mass/volume] in Serum or Plasma 2022-10-27 03:21:58 167 ug/dL F 75.0-360.0 Iron [Mass/volume] in Serum or Plasma 2022-10-27 03:21:58 65 ug/dL F 65.0-175.0 Iron binding capacity.unsaturated [Mass/volume] in Serum or Plasma 2022-10-27 03:21:58 167 ug/dL F 75.0-360.0 Ferritin [Mass/volume] in Serum or Plasma 2022-10-26 16:37:17 431 ng/mL F 22.0-322.0 Ferritin [Mass/volume] in Serum or Plasma 2022-10-26 16:37:17 431 ng/mL F 22.0-322.0 HCT CALC HGBX3 2022-10-26 15:34:28 36 % F 42.0-52.0 HCT CALC HGBX3 2022-10-26 15:34:28 36 % F 42.0-52.0 Erythrocyte distribution width [Ratio] by Automated count 2022-10-26 15:34:16 13.6 % F 11.0-15.0 Erythrocytes [#/volume] in Blood by Automated count 2022-10-26 15:34:16 4.05 x 10'6 cells/uL F 4.6-6.2 Hematocrit [Volume Fraction] of Blood by Automated count 2022-10-26 15:34:16 35.4 % F 42.0-52.0 Hemoglobin [Mass/volume] in Blood 2022-10-26 15:34:16 12 g/dL F 14.0-18.0 MCV [Entitic volume] by Automated count 2022-10-26 15:34:16 87.4 fL F 80.0-100.0 MCH [Entitic mass] by Automated count 2022-10-26 15:34:16 29.6 pg F 27.0-31.0 MCHC [Mass/volume] by Automated count 2022-10-26 15:34:16 33.9 g/dL F 32.0-36.0 Platelets [#/volume] in Blood by Automated count 2022-10-26 15:34:16 165 x 10'3 cells/uL F 150.0-400.0 Reticulocytes/100 erythrocytes in Blood by Automated count 2022-10-26 15:34:16 2 % F 0.8-2.1 Erythrocyte distribution width [Ratio] by Automated count 2022-10-26 15:34:16 13.6 % F 11.0-15.0 Hematocrit [Volume Fraction] of Blood by Automated count 2022-10-26 15:34:16 35.4 % F 42.0-52.0 MCH [Entitic mass] by Automated count 2022-10-26 15:34:16 29.6 pg F 27.0-31.0 Erythrocytes [#/volume] in Blood by Automated count 2022-10-26 15:34:16 4.05 x 10'6 cells/uL F 4.6-6.2 MCV [Entitic volume] by Automated count 2022-10-26 15:34:16 87.4 fL F 80.0-100.0 Hemoglobin [Mass/volume] in Blood 2022-10-26 15:34:16 12 g/dL F 14.0-18.0 MCHC [Mass/volume] by Automated count 2022-10-26 15:34:16 33.9 g/dL F 32.0-36.0 Platelets [#/volume] in Blood by Automated count 2022-10-26 15:34:16 165 x 10'3 cells/uL F 150.0-400.0 Reticulocytes/100 erythrocytes in Blood by Automated count 2022-10-26 15:34:16 2 % F 0.8-2.1 IRON SATURATION 2022-09-29 22:51:38 30 % F 21.0-49.0 TIBC 2022-09-29 22:51:38 243 ug/dL F 250.0-425.0 Iron [Mass/volume] in Serum or Plasma 2022-09-29 22:50:14 72 ug/dL F 65.0-175.0 Iron binding capacity.unsaturated [Mass/volume] in Serum or Plasma 2022-09-29 22:50:14 171 ug/dL F 75.0-360.0 Ferritin [Mass/volume] in Serum or Plasma 2022-09-29 18:07:35 508 ng/mL F 22.0-322.0 HCT CALC HGBX3 2022-09-29 15:00:34 39 % F 42.0-52.0 Hematocrit [Volume Fraction] of Blood by Automated count 2022-09-29 14:59:50 38.7 % F 42.0-52.0 Erythrocyte distribution width [Ratio] by Automated count 2022-09-29 14:59:48 13.7 % F 11.0-15.0 Erythrocytes [#/volume] in Blood by Automated count 2022-09-29 14:59:48 4.34 x 10'6 cells/uL F 4.6-6.2 Hemoglobin [Mass/volume] in Blood 2022-09-29 14:59:48 13 g/dL F 14.0-18.0 MCV [Entitic volume] by Automated count 2022-09-29 14:59:48 89.1 fL F 80.0-100.0 MCH [Entitic mass] by Automated count 2022-09-29 14:59:48 29.9 pg F 27.0-31.0 MCHC [Mass/volume] by Automated count 2022-09-29 14:59:48 33.6 g/dL F 32.0-36.0 Platelets [#/volume] in Blood by Automated count 2022-09-29 14:59:48 204 x 10'3 cells/uL F 150.0-400.0 Reticulocytes/100 erythrocytes in Blood by Automated count 2022-09-29 14:59:48 2.12 % F 0.8-2.1 IRON SATURATION 2022-08-25 06:57:22 26 % F 21.0-49.0 HCT CALC HGBX3 2022-08-25 06:57:22 38.7 % F 42.0-52.0 TIBC 2022-08-25 06:57:22 247 ug/dL F 250.0-425.0 Erythrocyte distribution width [Ratio] by Automated count 2022-08-25 06:44:45 14.9 % F 11.0-15.0 Erythrocytes [#/volume] in Blood by Automated count 2022-08-25 06:44:45 4.38 x 10'6 cells/uL F 4.6-6.2 Hematocrit [Volume Fraction] of Blood by Automated count 2022-08-25 06:44:45 39.4 % F 42.0-52.0 Hemoglobin [Mass/volume] in Blood 2022-08-25 06:44:45 12.9 g/dL F 14.0-18.0 MCV [Entitic volume] by Automated count 2022-08-25 06:44:45 90.1 fL F 80.0-100.0 MCH [Entitic mass] by Automated count 2022-08-25 06:44:45 29.6 pg F 27.0-31.0 Platelets [#/volume] in Blood by Automated count 2022-08-25 06:44:45 212 x 10'3 cells/uL F 150.0-400.0 MCHC [Mass/volume] by Automated count 2022-08-25 06:44:45 32.8 g/dL F 32.0-36.0 Reticulocytes/100 erythrocytes in Blood by Automated count 2022-08-25 06:44:45 1.94 % F 0.8-2.1 Iron [Mass/volume] in Serum or Plasma 2022-08-25 06:27:41 64 ug/dL F 65.0-175.0 Iron binding capacity.unsaturated [Mass/volume] in Serum or Plasma 2022-08-25 06:27:41 183 ug/dL F 75.0-360.0 Ferritin [Mass/volume] in Serum or Plasma 2022-08-25 03:27:37 426 ng/mL F 22.0-322.0 HCT CALC HGBX3 HCT CALC HGBX3 HCT CALC HGBX3 HCT CALC HGBX3 FluidBP Description Draw Date Result/Unit Status Ref Range Result Comments Sodium [Moles/volume] in Serum or Plasma 2024-07-26 07:21:16 137 mEq/L F 132.0-146.0 Sodium [Moles/volume] in Serum or Plasma 2024-07-26 07:21:16 137 mEq/L F 132.0-146.0 Sodium [Moles/volume] in Serum or Plasma 2024-07-26 07:21:16 137 mEq/L F 132.0-146.0 Sodium [Moles/volume] in Serum or Plasma 2024-06-27 16:39:34 136 mEq/L F 132.0-146.0 Sodium [Moles/volume] in Serum or Plasma 2024-06-27 16:39:34 136 mEq/L F 132.0-146.0 Sodium [Moles/volume] in Serum or Plasma 2024-06-27 16:39:34 136 mEq/L F 132.0-146.0 Sodium [Moles/volume] in Serum or Plasma 2024-05-23 16:07:28 138 mEq/L F 132.0-146.0 Sodium [Moles/volume] in Serum or Plasma 2024-05-23 16:07:28 138 mEq/L F 132.0-146.0 Sodium [Moles/volume] in Serum or Plasma 2024-02-22 06:56:45 133 mEq/L F 132.0-146.0 Sodium [Moles/volume] in Serum or Plasma 2024-02-22 06:56:45 133 mEq/L F 132.0-146.0 Sodium [Moles/volume] in Serum or Plasma 2024-02-22 06:56:45 133 mEq/L F 132.0-146.0 Sodium [Moles/volume] in Serum or Plasma 2023-12-22 05:00:15 136 mEq/L F 132.0-146.0 Sodium [Moles/volume] in Serum or Plasma 2023-12-22 05:00:15 136 mEq/L F 132.0-146.0 Sodium [Moles/volume] in Serum or Plasma 2023-11-11 18:10:56 139 mEq/L F 132.0-146.0 Sodium [Moles/volume] in Serum or Plasma 2023-11-11 18:10:56 139 mEq/L F 132.0-146.0 Sodium [Moles/volume] in Serum or Plasma 2023-11-11 18:10:56 139 mEq/L F 132.0-146.0 Sodium [Moles/volume] in Serum or Plasma 2023-09-01 08:11:52 135 mEq/L F 132.0-146.0 Sodium [Moles/volume] in Serum or Plasma 2023-09-01 08:11:52 135 mEq/L F 132.0-146.0 Sodium [Moles/volume] in Serum or Plasma 2023-04-27 22:17:37 139 mEq/L F 132.0-146.0 Sodium [Moles/volume] in Serum or Plasma 2023-04-27 22:17:37 139 mEq/L F 132.0-146.0 Sodium [Moles/volume] in Serum or Plasma 2023-04-27 22:17:37 139 mEq/L F 132.0-146.0 Sodium [Moles/volume] in Serum or Plasma 2023-02-25 14:50:22 137 mEq/L F 132.0-146.0 Sodium [Moles/volume] in Serum or Plasma 2022-10-26 15:21:16 139 mEq/L F 132.0-146.0 Sodium [Moles/volume] in Serum or Plasma 2022-10-26 15:21:16 139 mEq/L F 132.0-146.0 Sodium [Moles/volume] in Serum or Plasma 2022-09-29 14:53:50 139 mEq/L F 132.0-146.0 Sodium [Moles/volume] in Serum or Plasma 2022-08-25 02:57:50 140 mEq/L F 132.0-146.0 General Description Draw Date Result/Unit Status Ref Range Result Comments [facility] 2024-07-25 17:22:34 8.6 g/day F [facility] 2024-07-25 17:22:34 8.6 g/day F [facility] 2024-07-25 17:22:34 8.6 g/day F Aspartate aminotransferase [Enzymatic activity/volume] in Serum or Plasma 2024-07-25 16:24:37 30 U/L F 0.0-33.0 Alanine aminotransferase [Enzymatic activity/volume] in Serum or Plasma 2024-07-25 16:24:37 31 U/L F 10.0-49.0 Alanine aminotransferase [Enzymatic activity/volume] in Serum or Plasma 2024-07-25 16:24:37 31 U/L F 10.0-49.0 Aspartate aminotransferase [Enzymatic activity/volume] in Serum or Plasma 2024-07-25 16:24:37 30 U/L F 0.0-33.0 Alanine aminotransferase [Enzymatic activity/volume] in Serum or Plasma 2024-07-25 16:24:37 31 U/L F 10.0-49.0 Aspartate aminotransferase [Enzymatic activity/volume] in Serum or Plasma 2024-07-25 16:24:37 30 U/L F 0.0-33.0 Alanine aminotransferase [Enzymatic activity/volume] in Serum or Plasma 2024-06-27 15:04:18 22 U/L F 10.0-49.0 Aspartate aminotransferase [Enzymatic activity/volume] in Serum or Plasma 2024-06-27 15:04:18 25 U/L F 0.0-33.0 Alanine aminotransferase [Enzymatic activity/volume] in Serum or Plasma 2024-06-27 15:04:18 22 U/L F 10.0-49.0 Aspartate aminotransferase [Enzymatic activity/volume] in Serum or Plasma 2024-06-27 15:04:18 25 U/L F 0.0-33.0 Alanine aminotransferase [Enzymatic activity/volume] in Serum or Plasma 2024-06-27 15:04:18 22 U/L F 10.0-49.0 Aspartate aminotransferase [Enzymatic activity/volume] in Serum or Plasma 2024-06-27 15:04:18 25 U/L F 0.0-33.0 Alanine aminotransferase [Enzymatic activity/volume] in Serum or Plasma 2024-05-23 13:16:17 29 U/L F 10.0-49.0 Aspartate aminotransferase [Enzymatic activity/volume] in Serum or Plasma 2024-05-23 13:16:17 25 U/L F 0.0-33.0 Alanine aminotransferase [Enzymatic activity/volume] in Serum or Plasma 2024-05-23 13:16:17 29 U/L F 10.0-49.0 Aspartate aminotransferase [Enzymatic activity/volume] in Serum or Plasma 2024-05-23 13:16:17 25 U/L F 0.0-33.0 Alanine aminotransferase [Enzymatic activity/volume] in Serum or Plasma 2024-02-21 12:29:27 36 U/L F 10.0-49.0 Aspartate aminotransferase [Enzymatic activity/volume] in Serum or Plasma 2024-02-21 12:29:27 46 U/L F 0.0-33.0 Alanine aminotransferase [Enzymatic activity/volume] in Serum or Plasma 2024-02-21 12:29:27 36 U/L F 10.0-49.0 Aspartate aminotransferase [Enzymatic activity/volume] in Serum or Plasma 2024-02-21 12:29:27 46 U/L F 0.0-33.0 Alanine aminotransferase [Enzymatic activity/volume] in Serum or Plasma 2024-02-21 12:29:27 36 U/L F 10.0-49.0 Aspartate aminotransferase [Enzymatic activity/volume] in Serum or Plasma 2024-02-21 12:29:27 46 U/L F 0.0-33.0 Alanine aminotransferase [Enzymatic activity/volume] in Serum or Plasma 2023-12-22 01:38:38 19 U/L F 10.0-49.0 Aspartate aminotransferase [Enzymatic activity/volume] in Serum or Plasma 2023-12-22 01:38:38 25 U/L F 0.0-33.0 Alanine aminotransferase [Enzymatic activity/volume] in Serum or Plasma 2023-12-22 01:38:38 19 U/L F 10.0-49.0 Aspartate aminotransferase [Enzymatic activity/volume] in Serum or Plasma 2023-12-22 01:38:38 25 U/L F 0.0-33.0 [facility] 2023-11-11 18:05:49 10.8 g/day F [facility] 2023-11-11 18:05:49 10.8 g/day F [facility] 2023-11-11 18:05:49 10.8 g/day F Alanine aminotransferase [Enzymatic activity/volume] in Serum or Plasma 2023-11-11 14:59:28 9 U/L F 10.0-49.0 Aspartate aminotransferase [Enzymatic activity/volume] in Serum or Plasma 2023-11-11 14:59:28 25 U/L F 0.0-33.0 Alanine aminotransferase [Enzymatic activity/volume] in Serum or Plasma 2023-11-11 14:59:28 9 U/L F 10.0-49.0 Aspartate aminotransferase [Enzymatic activity/volume] in Serum or Plasma 2023-11-11 14:59:28 25 U/L F 0.0-33.0 Aspartate aminotransferase [Enzymatic activity/volume] in Serum or Plasma 2023-11-11 14:59:28 25 U/L F 0.0-33.0 Alanine aminotransferase [Enzymatic activity/volume] in Serum or Plasma 2023-11-11 14:59:28 9 U/L F 10.0-49.0 Chloride [Moles/volume] in Serum or Plasma 2023-09-01 08:11:52 96 mEq/L F 99.0-109.0 Chloride [Moles/volume] in Serum or Plasma 2023-09-01 08:11:52 96 mEq/L F 99.0-109.0 Alanine aminotransferase [Enzymatic activity/volume] in Serum or Plasma 2023-08-31 21:30:36 22 U/L F 10.0-49.0 Aspartate aminotransferase [Enzymatic activity/volume] in Serum or Plasma 2023-08-31 21:30:36 26 U/L F 0.0-33.0 Alanine aminotransferase [Enzymatic activity/volume] in Serum or Plasma 2023-08-31 21:30:36 22 U/L F 10.0-49.0 Aspartate aminotransferase [Enzymatic activity/volume] in Serum or Plasma 2023-08-31 21:30:36 26 U/L F 0.0-33.0 Aluminum [Mass/volume] in Serum or Plasma 2023-08-30 19:47:45 10 ug/L F 0.0-9.0 Aluminum [Mass/volume] in Serum or Plasma 2023-08-30 19:47:45 10 ug/L F 0.0-9.0 [place] 2023-04-28 00:06:20 8.1 g/day F [place] [facility] 2023-04-28 00:06:20 8.1 g/day F [place] [facility] 2023-04-28 00:06:20 8.1 g/day F Alanine aminotransferase [Enzymatic activity/volume] in Serum or Plasma 2023-04-27 22:17:37 55 U/L F 10.0-49.0 Aspartate aminotransferase [Enzymatic activity/volume] in Serum or Plasma 2023-04-27 22:17:37 35 U/L F 0.0-33.0 Alanine aminotransferase [Enzymatic activity/volume] in Serum or Plasma 2023-04-27 22:17:37 55 U/L F 10.0-49.0 Aspartate aminotransferase [Enzymatic activity/volume] in Serum or Plasma 2023-04-27 22:17:37 35 U/L F 0.0-33.0 Alanine aminotransferase [Enzymatic activity/volume] in Serum or Plasma 2023-04-27 22:17:37 55 U/L F 10.0-49.0 Aspartate aminotransferase [Enzymatic activity/volume] in Serum or Plasma 2023-04-27 22:17:37 35 U/L F 0.0-33.0 Alanine aminotransferase [Enzymatic activity/volume] in Serum or Plasma 2023-02-25 14:50:22 71 U/L F 10.0-49.0 Aspartate aminotransferase [Enzymatic activity/volume] in Serum or Plasma 2023-02-25 14:50:22 50 U/L F 0.0-33.0 [place] 2022-10-26 17:34:58 10.1 g/day F [place] 2022-10-26 17:34:58 10.1 g/day F Alanine aminotransferase [Enzymatic activity/volume] in Serum or Plasma 2022-10-26 15:21:16 43 U/L F 10.0-49.0 Aspartate aminotransferase [Enzymatic activity/volume] in Serum or Plasma 2022-10-26 15:21:16 28 U/L F 0.0-33.0 Alanine aminotransferase [Enzymatic activity/volume] in Serum or Plasma 2022-10-26 15:21:16 43 U/L F 10.0-49.0 Aspartate aminotransferase [Enzymatic activity/volume] in Serum or Plasma 2022-10-26 15:21:16 28 U/L F 0.0-33.0 Alanine aminotransferase [Enzymatic activity/volume] in Serum or Plasma 2022-09-29 14:53:50 74 U/L F 10.0-49.0 Aspartate aminotransferase [Enzymatic activity/volume] in Serum or Plasma 2022-09-29 14:53:50 49 U/L F 0.0-33.0 Aluminum [Mass/volume] in Serum or Plasma 2022-08-25 15:18:48 10 ug/L F 0.0-9.0 Alanine aminotransferase [Enzymatic activity/volume] in Serum or Plasma 2022-08-25 02:57:50 43 U/L F 10.0-49.0 Aspartate aminotransferase [Enzymatic activity/volume] in Serum or Plasma 2022-08-25 02:57:50 32 U/L F 0.0-33.0 InfectionVaccination Description Draw Date Result/Unit Status Ref Range Result Comments Lymphocytes [#/volume] in Blood by Automated count 2024-07-26 03:11:12 934 Cells/uL F 620.0-3660.0 Eosinophils [#/volume] in Blood by Automated count 2024-07-26 03:11:12 98 Cells/uL F 0.0-700.0 Basophils/100 leukocytes in Blood by Automated count 2024-07-26 03:11:12 0.7 % F Neutrophils/100 leukocytes in Blood by Automated count 2024-07-26 03:11:12 60.9 % F Monocytes/100 leukocytes in Blood by Automated count 2024-07-26 03:11:12 12 % F Lymphocytes/100 leukocytes in Blood by Automated count 2024-07-26 03:11:12 23.9 % F Eosinophils/100 leukocytes in Blood by Automated count 2024-07-26 03:11:12 2.5 % F Leukocytes [#/volume] in Blood by Automated count 2024-07-26 03:11:12 3.9 x 10'3 cells/uL F 4.0-11.0 Neutrophils [#/volume] in Blood by Automated count 2024-07-26 03:11:12 2381 Cells/uL F 2000.0-8800. 0 Lymphocytes [#/volume] in Blood by Automated count 2024-07-26 03:11:12 934 Cells/uL F 620.0-3660.0 Monocytes [#/volume] in Blood by Automated count 2024-07-26 03:11:12 469 Cells/uL F 0.0-1100.0 Basophils [#/volume] in Blood by Automated count 2024-07-26 03:11:12 27 Cells/uL F 0.0-400.0 Eosinophils [#/volume] in Blood by Automated count 2024-07-26 03:11:12 98 Cells/uL F 0.0-700.0 Basophils/100 leukocytes in Blood by Automated count 2024-07-26 03:11:12 0.7 % F Neutrophils/100 leukocytes in Blood by Automated count 2024-07-26 03:11:12 60.9 % F Lymphocytes/100 leukocytes in Blood by Automated count 2024-07-26 03:11:12 23.9 % F Monocytes/100 leukocytes in Blood by Automated count 2024-07-26 03:11:12 12 % F Eosinophils/100 leukocytes in Blood by Automated count 2024-07-26 03:11:12 2.5 % F Leukocytes [#/volume] in Blood by Automated count 2024-07-26 03:11:12 3.9 x 10'3 cells/uL F 4.0-11.0 Monocytes [#/volume] in Blood by Automated count 2024-07-26 03:11:12 469 Cells/uL F 0.0-1100.0 Neutrophils [#/volume] in Blood by Automated count 2024-07-26 03:11:12 2381 Cells/uL F 2000.0-8800. 0 Lymphocytes [#/volume] in Blood by Automated count 2024-07-26 03:11:12 934 Cells/uL F 620.0-3660.0 Basophils [#/volume] in Blood by Automated count 2024-07-26 03:11:12 27 Cells/uL F 0.0-400.0 Eosinophils [#/volume] in Blood by Automated count 2024-07-26 03:11:12 98 Cells/uL F 0.0-700.0 Monocytes/100 leukocytes in Blood by Automated count 2024-07-26 03:11:12 12 % F Lymphocytes/100 leukocytes in Blood by Automated count 2024-07-26 03:11:12 23.9 % F Eosinophils/100 leukocytes in Blood by Automated count 2024-07-26 03:11:12 2.5 % F Basophils/100 leukocytes in Blood by Automated count 2024-07-26 03:11:12 0.7 % F Neutrophils/100 leukocytes in Blood by Automated count 2024-07-26 03:11:12 60.9 % F Leukocytes [#/volume] in Blood by Automated count 2024-07-26 03:11:12 3.9 x 10'3 cells/uL F 4.0-11.0 Basophils [#/volume] in Blood by Automated count 2024-07-26 03:11:12 27 Cells/uL F 0.0-400.0 Monocytes [#/volume] in Blood by Automated count 2024-07-26 03:11:12 469 Cells/uL F 0.0-1100.0 Neutrophils [#/volume] in Blood by Automated count 2024-07-26 03:11:12 2381 Cells/uL F 2000.0-8800. 0 Neutrophils [#/volume] in Blood by Automated count 2024-06-27 15:52:15 3970 Cells/uL F 2000.0-8800. 0 Neutrophils [#/volume] in Blood by Automated count 2024-06-27 15:52:15 3970 Cells/uL F 2000.0-8800. 0 Neutrophils [#/volume] in Blood by Automated count 2024-06-27 15:52:15 3970 Cells/uL F 2000.0-8800. 0 Basophils/100 leukocytes in Blood by Automated count 2024-06-27 15:52:13 0.3 % F Neutrophils/100 leukocytes in Blood by Automated count 2024-06-27 15:52:13 68.8 % F Monocytes/100 leukocytes in Blood by Automated count 2024-06-27 15:52:13 6.9 % F Lymphocytes/100 leukocytes in Blood by Automated count 2024-06-27 15:52:13 19.2 % F Eosinophils/100 leukocytes in Blood by Automated count 2024-06-27 15:52:13 4.7 % F Leukocytes [#/volume] in Blood by Automated count 2024-06-27 15:52:13 5.8 x 10'3 cells/uL F 4.0-11.0 Lymphocytes [#/volume] in Blood by Automated count 2024-06-27 15:52:13 1108 Cells/uL F 620.0-3660.0 Monocytes [#/volume] in Blood by Automated count 2024-06-27 15:52:13 398 Cells/uL F 0.0-1100.0 Basophils [#/volume] in Blood by Automated count 2024-06-27 15:52:13 17 Cells/uL F 0.0-400.0 Eosinophils [#/volume] in Blood by Automated count 2024-06-27 15:52:13 271 Cells/uL F 0.0-700.0 Neutrophils/100 leukocytes in Blood by Automated count 2024-06-27 15:52:13 68.8 % F Lymphocytes/100 leukocytes in Blood by Automated count 2024-06-27 15:52:13 19.2 % F Leukocytes [#/volume] in Blood by Automated count 2024-06-27 15:52:13 5.8 x 10'3 cells/uL F 4.0-11.0 Basophils [#/volume] in Blood by Automated count 2024-06-27 15:52:13 17 Cells/uL F 0.0-400.0 Monocytes/100 leukocytes in Blood by Automated count 2024-06-27 15:52:13 6.9 % F Basophils/100 leukocytes in Blood by Automated count 2024-06-27 15:52:13 0.3 % F Eosinophils/100 leukocytes in Blood by Automated count 2024-06-27 15:52:13 4.7 % F Lymphocytes [#/volume] in Blood by Automated count 2024-06-27 15:52:13 1108 Cells/uL F 620.0-3660.0 Monocytes [#/volume] in Blood by Automated count 2024-06-27 15:52:13 398 Cells/uL F 0.0-1100.0 Eosinophils [#/volume] in Blood by Automated count 2024-06-27 15:52:13 271 Cells/uL F 0.0-700.0 Neutrophils/100 leukocytes in Blood by Automated count 2024-06-27 15:52:13 68.8 % F Basophils/100 leukocytes in Blood by Automated count 2024-06-27 15:52:13 0.3 % F Lymphocytes/100 leukocytes in Blood by Automated count 2024-06-27 15:52:13 19.2 % F Monocytes/100 leukocytes in Blood by Automated count 2024-06-27 15:52:13 6.9 % F Eosinophils/100 leukocytes in Blood by Automated count 2024-06-27 15:52:13 4.7 % F Leukocytes [#/volume] in Blood by Automated count 2024-06-27 15:52:13 5.8 x 10'3 cells/uL F 4.0-11.0 Lymphocytes [#/volume] in Blood by Automated count 2024-06-27 15:52:13 1108 Cells/uL F 620.0-3660.0 Monocytes [#/volume] in Blood by Automated count 2024-06-27 15:52:13 398 Cells/uL F 0.0-1100.0 Basophils [#/volume] in Blood by Automated count 2024-06-27 15:52:13 17 Cells/uL F 0.0-400.0 Eosinophils [#/volume] in Blood by Automated count 2024-06-27 15:52:13 271 Cells/uL F 0.0-700.0 Basophils/100 leukocytes in Blood by Automated count 2024-05-23 15:07:06 0.4 % F Neutrophils/100 leukocytes in Blood by Automated count 2024-05-23 15:07:06 54.2 % F Eosinophils/100 leukocytes in Blood by Automated count 2024-05-23 15:07:06 2.7 % F Monocytes/100 leukocytes in Blood by Automated count 2024-05-23 15:07:06 9.2 % F Leukocytes [#/volume] in Blood by Automated count 2024-05-23 15:07:06 6.6 x 10'3 cells/uL F 4.0-11.0 Neutrophils [#/volume] in Blood by Automated count 2024-05-23 15:07:06 3550 Cell/uL F 2000.0-8800. 0 Monocytes [#/volume] in Blood by Automated count 2024-05-23 15:07:06 603 Cell/uL F 0.0-1100.0 Lymphocytes [#/volume] in Blood by Automated count 2024-05-23 15:07:06 2194 Cell/uL F 620.0-3660.0 Eosinophils [#/volume] in Blood by Automated count 2024-05-23 15:07:06 177 Cell/uL F 0.0-700.0 Basophils/100 leukocytes in Blood by Automated count 2024-05-23 15:07:06 0.4 % F Neutrophils/100 leukocytes in Blood by Automated count 2024-05-23 15:07:06 54.2 % F Monocytes/100 leukocytes in Blood by Automated count 2024-05-23 15:07:06 9.2 % F Eosinophils/100 leukocytes in Blood by Automated count 2024-05-23 15:07:06 2.7 % F Leukocytes [#/volume] in Blood by Automated count 2024-05-23 15:07:06 6.6 x 10'3 cells/uL F 4.0-11.0 Lymphocytes [#/volume] in Blood by Automated count 2024-05-23 15:07:06 2194 Cell/uL F 620.0-3660.0 Neutrophils [#/volume] in Blood by Automated count 2024-05-23 15:07:06 3550 Cell/uL F 2000.0-8800. 0 Monocytes [#/volume] in Blood by Automated count 2024-05-23 15:07:06 603 Cell/uL F 0.0-1100.0 Eosinophils [#/volume] in Blood by Automated count 2024-05-23 15:07:06 177 Cell/uL F 0.0-700.0 Lymphocytes/100 leukocytes in Blood by Automated count 2024-05-23 15:07:05 33.5 % F Basophils [#/volume] in Blood by Automated count 2024-05-23 15:07:05 26 Cell/uL F 0.0-400.0 Lymphocytes/100 leukocytes in Blood by Automated count 2024-05-23 15:07:05 33.5 % F Basophils [#/volume] in Blood by Automated count 2024-05-23 15:07:05 26 Cell/uL F 0.0-400.0 Basophils/100 leukocytes in Blood by Automated count 2024-02-21 04:48:30 0.4 % F Neutrophils/100 leukocytes in Blood by Automated count 2024-02-21 04:48:30 72.2 % F Lymphocytes/100 leukocytes in Blood by Automated count 2024-02-21 04:48:30 17.4 % F Monocytes/100 leukocytes in Blood by Automated count 2024-02-21 04:48:30 7.4 % F Eosinophils/100 leukocytes in Blood by Automated count 2024-02-21 04:48:30 2.7 % F Leukocytes [#/volume] in Blood by Automated count 2024-02-21 04:48:30 4.7 x 10'3 cells/uL F 4.0-11.0 Neutrophils [#/volume] in Blood by Automated count 2024-02-21 04:48:30 3422 Cell/uL F 2000.0-8800. 0 Monocytes [#/volume] in Blood by Automated count 2024-02-21 04:48:30 351 Cell/uL F 0.0-1100.0 Basophils [#/volume] in Blood by Automated count 2024-02-21 04:48:30 19 Cell/uL F 0.0-400.0 Lymphocytes [#/volume] in Blood by Automated count 2024-02-21 04:48:30 825 Cell/uL F 620.0-3660.0 Eosinophils [#/volume] in Blood by Automated count 2024-02-21 04:48:30 128 Cell/uL F 0.0-700.0 Basophils/100 leukocytes in Blood by Automated count 2024-02-21 04:48:30 0.4 % F Neutrophils/100 leukocytes in Blood by Automated count 2024-02-21 04:48:30 72.2 % F Lymphocytes/100 leukocytes in Blood by Automated count 2024-02-21 04:48:30 17.4 % F Monocytes/100 leukocytes in Blood by Automated count 2024-02-21 04:48:30 7.4 % F Eosinophils/100 leukocytes in Blood by Automated count 2024-02-21 04:48:30 2.7 % F Leukocytes [#/volume] in Blood by Automated count 2024-02-21 04:48:30 4.7 x 10'3 cells/uL F 4.0-11.0 Neutrophils [#/volume] in Blood by Automated count 2024-02-21 04:48:30 3422 Cell/uL F 2000.0-8800. 0 Lymphocytes [#/volume] in Blood by Automated count 2024-02-21 04:48:30 825 Cell/uL F 620.0-3660.0 Monocytes [#/volume] in Blood by Automated count 2024-02-21 04:48:30 351 Cell/uL F 0.0-1100.0 Basophils [#/volume] in Blood by Automated count 2024-02-21 04:48:30 19 Cell/uL F 0.0-400.0 Eosinophils [#/volume] in Blood by Automated count 2024-02-21 04:48:30 128 Cell/uL F 0.0-700.0 Basophils/100 leukocytes in Blood by Automated count 2024-02-21 04:48:30 0.4 % F Neutrophils/100 leukocytes in Blood by Automated count 2024-02-21 04:48:30 72.2 % F Lymphocytes/100 leukocytes in Blood by Automated count 2024-02-21 04:48:30 17.4 % F Eosinophils/100 leukocytes in Blood by Automated count 2024-02-21 04:48:30 2.7 % F Leukocytes [#/volume] in Blood by Automated count 2024-02-21 04:48:30 4.7 x 10'3 cells/uL F 4.0-11.0 Monocytes/100 leukocytes in Blood by Automated count 2024-02-21 04:48:30 7.4 % F Neutrophils [#/volume] in Blood by Automated count 2024-02-21 04:48:30 3422 Cell/uL F 2000.0-8800. 0 Monocytes [#/volume] in Blood by Automated count 2024-02-21 04:48:30 351 Cell/uL F 0.0-1100.0 Lymphocytes [#/volume] in Blood by Automated count 2024-02-21 04:48:30 825 Cell/uL F 620.0-3660.0 Basophils [#/volume] in Blood by Automated count 2024-02-21 04:48:30 19 Cell/uL F 0.0-400.0 Eosinophils [#/volume] in Blood by Automated count 2024-02-21 04:48:30 128 Cell/uL F 0.0-700.0 Basophils/100 leukocytes in Blood by Automated count 2023-12-21 22:51:41 0.6 % F Neutrophils/100 leukocytes in Blood by Automated count 2023-12-21 22:51:41 52.6 % F Lymphocytes/100 leukocytes in Blood by Automated count 2023-12-21 22:51:41 32.9 % F Monocytes/100 leukocytes in Blood by Automated count 2023-12-21 22:51:41 10.8 % F Eosinophils/100 leukocytes in Blood by Automated count 2023-12-21 22:51:41 3 % F Leukocytes [#/volume] in Blood by Automated count 2023-12-21 22:51:41 4.4 x 10'3 cells/uL F 4.0-11.0 Neutrophils [#/volume] in Blood by Automated count 2023-12-21 22:51:41 2335 Cell/uL F 2000.0-8800. 0 Lymphocytes [#/volume] in Blood by Automated count 2023-12-21 22:51:41 1461 Cell/uL F 620.0-3660.0 Monocytes [#/volume] in Blood by Automated count 2023-12-21 22:51:41 480 Cell/uL F 0.0-1100.0 Basophils [#/volume] in Blood by Automated count 2023-12-21 22:51:41 27 Cell/uL F 0.0-400.0 Eosinophils [#/volume] in Blood by Automated count 2023-12-21 22:51:41 133 Cell/uL F 0.0-700.0 Basophils/100 leukocytes in Blood by Automated count 2023-12-21 22:51:41 0.6 % F Lymphocytes/100 leukocytes in Blood by Automated count 2023-12-21 22:51:41 32.9 % F Neutrophils/100 leukocytes in Blood by Automated count 2023-12-21 22:51:41 52.6 % F Monocytes/100 leukocytes in Blood by Automated count 2023-12-21 22:51:41 10.8 % F Eosinophils/100 leukocytes in Blood by Automated count 2023-12-21 22:51:41 3 % F Leukocytes [#/volume] in Blood by Automated count 2023-12-21 22:51:41 4.4 x 10'3 cells/uL F 4.0-11.0 Lymphocytes [#/volume] in Blood by Automated count 2023-12-21 22:51:41 1461 Cell/uL F 620.0-3660.0 Monocytes [#/volume] in Blood by Automated count 2023-12-21 22:51:41 480 Cell/uL F 0.0-1100.0 Neutrophils [#/volume] in Blood by Automated count 2023-12-21 22:51:41 2335 Cell/uL F 2000.0-8800. 0 Basophils [#/volume] in Blood by Automated count 2023-12-21 22:51:41 27 Cell/uL F 0.0-400.0 Eosinophils [#/volume] in Blood by Automated count 2023-12-21 22:51:41 133 Cell/uL F 0.0-700.0 Neutrophils/100 leukocytes in Blood by Automated count 2023-11-11 15:12:36 52.2 % F Neutrophils [#/volume] in Blood by Automated count 2023-11-11 15:12:36 2067 Cell/uL F 2000.0-8800. 0 Monocytes [#/volume] in Blood by Automated count 2023-11-11 15:12:36 404 Cell/uL F 0.0-1100.0 Eosinophils [#/volume] in Blood by Automated count 2023-11-11 15:12:36 301 Cell/uL F 0.0-700.0 Neutrophils/100 leukocytes in Blood by Automated count 2023-11-11 15:12:36 52.2 % F Neutrophils [#/volume] in Blood by Automated count 2023-11-11 15:12:36 2067 Cell/uL F 2000.0-8800. 0 Monocytes [#/volume] in Blood by Automated count 2023-11-11 15:12:36 404 Cell/uL F 0.0-1100.0 Eosinophils [#/volume] in Blood by Automated count 2023-11-11 15:12:36 301 Cell/uL F 0.0-700.0 Neutrophils/100 leukocytes in Blood by Automated count 2023-11-11 15:12:36 52.2 % F Eosinophils [#/volume] in Blood by Automated count 2023-11-11 15:12:36 301 Cell/uL F 0.0-700.0 Monocytes [#/volume] in Blood by Automated count 2023-11-11 15:12:36 404 Cell/uL F 0.0-1100.0 Neutrophils [#/volume] in Blood by Automated count 2023-11-11 15:12:36 2067 Cell/uL F 2000.0-8800. 0 Basophils/100 leukocytes in Blood by Automated count 2023-11-11 15:12:35 0.6 % F Lymphocytes/100 leukocytes in Blood by Automated count 2023-11-11 15:12:35 29.5 % F Monocytes/100 leukocytes in Blood by Automated count 2023-11-11 15:12:35 10.2 % F Eosinophils/100 leukocytes in Blood by Automated count 2023-11-11 15:12:35 7.6 % F Leukocytes [#/volume] in Blood by Automated count 2023-11-11 15:12:35 4 x 10'3 cells/uL F 4.0-11.0 Lymphocytes [#/volume] in Blood by Automated count 2023-11-11 15:12:35 1168 Cell/uL F 620.0-3660.0 Basophils [#/volume] in Blood by Automated count 2023-11-11 15:12:35 24 Cell/uL F 0.0-400.0 Basophils/100 leukocytes in Blood by Automated count 2023-11-11 15:12:35 0.6 % F Eosinophils/100 leukocytes in Blood by Automated count 2023-11-11 15:12:35 7.6 % F Monocytes/100 leukocytes in Blood by Automated count 2023-11-11 15:12:35 10.2 % F Lymphocytes/100 leukocytes in Blood by Automated count 2023-11-11 15:12:35 29.5 % F Leukocytes [#/volume] in Blood by Automated count 2023-11-11 15:12:35 4 x 10'3 cells/uL F 4.0-11.0 Lymphocytes [#/volume] in Blood by Automated count 2023-11-11 15:12:35 1168 Cell/uL F 620.0-3660.0 Basophils [#/volume] in Blood by Automated count 2023-11-11 15:12:35 24 Cell/uL F 0.0-400.0 Basophils/100 leukocytes in Blood by Automated count 2023-11-11 15:12:35 0.6 % F Lymphocytes/100 leukocytes in Blood by Automated count 2023-11-11 15:12:35 29.5 % F Eosinophils/100 leukocytes in Blood by Automated count 2023-11-11 15:12:35 7.6 % F Monocytes/100 leukocytes in Blood by Automated count 2023-11-11 15:12:35 10.2 % F Leukocytes [#/volume] in Blood by Automated count 2023-11-11 15:12:35 4 x 10'3 cells/uL F 4.0-11.0 Basophils [#/volume] in Blood by Automated count 2023-11-11 15:12:35 24 Cell/uL F 0.0-400.0 Lymphocytes [#/volume] in Blood by Automated count 2023-11-11 15:12:35 1168 Cell/uL F 620.0-3660.0 Basophils/100 leukocytes in Blood by Automated count 2023-08-31 21:01:19 1.2 % F Lymphocytes/100 leukocytes in Blood by Automated count 2023-08-31 21:01:19 40.8 % F Neutrophils [#/volume] in Blood by Automated count 2023-08-31 21:01:19 1660 Cell/uL F 2000.0-8800. 0 Monocytes [#/volume] in Blood by Automated count 2023-08-31 21:01:19 470 Cell/uL F 0.0-1100.0 Basophils/100 leukocytes in Blood by Automated count 2023-08-31 21:01:19 1.2 % F Lymphocytes/100 leukocytes in Blood by Automated count 2023-08-31 21:01:19 40.8 % F Neutrophils [#/volume] in Blood by Automated count 2023-08-31 21:01:19 1660 Cell/uL F 2000.0-8800. 0 Monocytes [#/volume] in Blood by Automated count 2023-08-31 21:01:19 470 Cell/uL F 0.0-1100.0 Neutrophils/100 leukocytes in Blood by Automated count 2023-08-31 21:01:17 41.3 % F Monocytes/100 leukocytes in Blood by Automated count 2023-08-31 21:01:17 11.7 % F Eosinophils/100 leukocytes in Blood by Automated count 2023-08-31 21:01:17 5 % F Leukocytes [#/volume] in Blood by Automated count 2023-08-31 21:01:17 4 x 10'3 cells/uL F 4.0-11.0 Lymphocytes [#/volume] in Blood by Automated count 2023-08-31 21:01:17 1640 Cell/uL F 620.0-3660.0 Basophils [#/volume] in Blood by Automated count 2023-08-31 21:01:17 48 Cell/uL F 0.0-400.0 Eosinophils [#/volume] in Blood by Automated count 2023-08-31 21:01:17 201 Cell/uL F 0.0-700.0 Neutrophils/100 leukocytes in Blood by Automated count 2023-08-31 21:01:17 41.3 % F Monocytes/100 leukocytes in Blood by Automated count 2023-08-31 21:01:17 11.7 % F Eosinophils/100 leukocytes in Blood by Automated count 2023-08-31 21:01:17 5 % F Leukocytes [#/volume] in Blood by Automated count 2023-08-31 21:01:17 4 x 10'3 cells/uL F 4.0-11.0 Lymphocytes [#/volume] in Blood by Automated count 2023-08-31 21:01:17 1640 Cell/uL F 620.0-3660.0 Basophils [#/volume] in Blood by Automated count 2023-08-31 21:01:17 48 Cell/uL F 0.0-400.0 Eosinophils [#/volume] in Blood by Automated count 2023-08-31 21:01:17 201 Cell/uL F 0.0-700.0 Basophils/100 leukocytes in Blood by Automated count 2023-04-28 02:04:38 1.3 % F Neutrophils/100 leukocytes in Blood by Automated count 2023-04-28 02:04:38 43.3 % F Monocytes/100 leukocytes in Blood by Automated count 2023-04-28 02:04:38 9.6 % F Lymphocytes/100 leukocytes in Blood by Automated count 2023-04-28 02:04:38 41.1 % F Eosinophils/100 leukocytes in Blood by Automated count 2023-04-28 02:04:38 4.8 % F Leukocytes [#/volume] in Blood by Automated count 2023-04-28 02:04:38 4.6 x 10'3 cells/uL F 4.0-11.0 Neutrophils [#/volume] in Blood by Automated count 2023-04-28 02:04:38 2009 Cell/uL F 2000.0-8800. 0 Monocytes [#/volume] in Blood by Automated count 2023-04-28 02:04:38 445 Cell/uL F 0.0-1100.0 Basophils [#/volume] in Blood by Automated count 2023-04-28 02:04:38 60 Cell/uL F 0.0-400.0 Lymphocytes [#/volume] in Blood by Automated count 2023-04-28 02:04:38 1907 Cell/uL F 620.0-3660.0 Eosinophils [#/volume] in Blood by Automated count 2023-04-28 02:04:38 223 Cell/uL F 0.0-700.0 Basophils/100 leukocytes in Blood by Automated count 2023-04-28 02:04:38 1.3 % F Neutrophils/100 leukocytes in Blood by Automated count 2023-04-28 02:04:38 43.3 % F Lymphocytes/100 leukocytes in Blood by Automated count 2023-04-28 02:04:38 41.1 % F Monocytes/100 leukocytes in Blood by Automated count 2023-04-28 02:04:38 9.6 % F Eosinophils/100 leukocytes in Blood by Automated count 2023-04-28 02:04:38 4.8 % F Leukocytes [#/volume] in Blood by Automated count 2023-04-28 02:04:38 4.6 x 10'3 cells/uL F 4.0-11.0 Neutrophils [#/volume] in Blood by Automated count 2023-04-28 02:04:38 2009 Cell/uL F 2000.0-8800. 0 Basophils [#/volume] in Blood by Automated count 2023-04-28 02:04:38 60 Cell/uL F 0.0-400.0 Monocytes [#/volume] in Blood by Automated count 2023-04-28 02:04:38 445 Cell/uL F 0.0-1100.0 Lymphocytes [#/volume] in Blood by Automated count 2023-04-28 02:04:38 1907 Cell/uL F 620.0-3660.0 Eosinophils [#/volume] in Blood by Automated count 2023-04-28 02:04:38 223 Cell/uL F 0.0-700.0 Monocytes/100 leukocytes in Blood by Automated count 2023-04-28 02:04:38 9.6 % F Basophils/100 leukocytes in Blood by Automated count 2023-04-28 02:04:38 1.3 % F Neutrophils/100 leukocytes in Blood by Automated count 2023-04-28 02:04:38 43.3 % F Leukocytes [#/volume] in Blood by Automated count 2023-04-28 02:04:38 4.6 x 10'3 cells/uL F 4.0-11.0 Monocytes [#/volume] in Blood by Automated count 2023-04-28 02:04:38 445 Cell/uL F 0.0-1100.0 Eosinophils [#/volume] in Blood by Automated count 2023-04-28 02:04:38 223 Cell/uL F 0.0-700.0 Eosinophils/100 leukocytes in Blood by Automated count 2023-04-28 02:04:38 4.8 % F Lymphocytes/100 leukocytes in Blood by Automated count 2023-04-28 02:04:38 41.1 % F Neutrophils [#/volume] in Blood by Automated count 2023-04-28 02:04:38 2009 Cell/uL F 2000.0-8800. 0 Lymphocytes [#/volume] in Blood by Automated count 2023-04-28 02:04:38 1907 Cell/uL F 620.0-3660.0 Basophils [#/volume] in Blood by Automated count 2023-04-28 02:04:38 60 Cell/uL F 0.0-400.0 Basophils/100 leukocytes in Blood by Automated count 2023-02-24 19:50:22 0.7 % F Neutrophils/100 leukocytes in Blood by Automated count 2023-02-24 19:50:22 42.4 % F Lymphocytes/100 leukocytes in Blood by Automated count 2023-02-24 19:50:22 41.6 % F Monocytes/100 leukocytes in Blood by Automated count 2023-02-24 19:50:22 10.2 % F Eosinophils/100 leukocytes in Blood by Automated count 2023-02-24 19:50:22 5 % F Leukocytes [#/volume] in Blood by Automated count 2023-02-24 19:50:22 4.2 x 10'3 cells/uL F 4.0-11.0 Neutrophils [#/volume] in Blood by Automated count 2023-02-24 19:50:22 1789 Cell/uL F 2000.0-8800. 0 Lymphocytes [#/volume] in Blood by Automated count 2023-02-24 19:50:22 1756 Cell/uL F 620.0-3660.0 Basophils [#/volume] in Blood by Automated count 2023-02-24 19:50:22 30 Cell/uL F 0.0-400.0 Monocytes [#/volume] in Blood by Automated count 2023-02-24 19:50:22 430 Cell/uL F 0.0-1100.0 Eosinophils [#/volume] in Blood by Automated count 2023-02-24 19:50:22 211 Cell/uL F 0.0-700.0 Basophils/100 leukocytes in Blood by Automated count 2022-10-26 15:34:16 0.6 % F Lymphocytes/100 leukocytes in Blood by Automated count 2022-10-26 15:34:16 39.3 % F Neutrophils/100 leukocytes in Blood by Automated count 2022-10-26 15:34:16 47 % F Monocytes/100 leukocytes in Blood by Automated count 2022-10-26 15:34:16 7.4 % F Eosinophils/100 leukocytes in Blood by Automated count 2022-10-26 15:34:16 5.8 % F Leukocytes [#/volume] in Blood by Automated count 2022-10-26 15:34:16 4.9 x 10'3 cells/uL F 4.5-11.0 Lymphocytes [#/volume] in Blood by Automated count 2022-10-26 15:34:16 1925.7 Cell/uL F 1100.0-4800. 0 Monocytes [#/volume] in Blood by Automated count 2022-10-26 15:34:16 362.6 Cell/uL F 0.0-1100.0 Neutrophils [#/volume] in Blood by Automated count 2022-10-26 15:34:16 2303 Cell/uL F 2000.0-8800. 0 Basophils [#/volume] in Blood by Automated count 2022-10-26 15:34:16 29.4 Cell/uL F 0.0-400.0 Eosinophils [#/volume] in Blood by Automated count 2022-10-26 15:34:16 284.2 Cell/uL F 0.0-700.0 Eosinophils/100 leukocytes in Blood by Automated count 2022-10-26 15:34:16 5.8 % F Basophils/100 leukocytes in Blood by Automated count 2022-10-26 15:34:16 0.6 % F Eosinophils [#/volume] in Blood by Automated count 2022-10-26 15:34:16 284.2 Cell/uL F 0.0-700.0 Neutrophils/100 leukocytes in Blood by Automated count 2022-10-26 15:34:16 47 % F Lymphocytes/100 leukocytes in Blood by Automated count 2022-10-26 15:34:16 39.3 % F Monocytes/100 leukocytes in Blood by Automated count 2022-10-26 15:34:16 7.4 % F Leukocytes [#/volume] in Blood by Automated count 2022-10-26 15:34:16 4.9 x 10'3 cells/uL F 4.5-11.0 Neutrophils [#/volume] in Blood by Automated count 2022-10-26 15:34:16 2303 Cell/uL F 2000.0-8800. 0 Monocytes [#/volume] in Blood by Automated count 2022-10-26 15:34:16 362.6 Cell/uL F 0.0-1100.0 Basophils [#/volume] in Blood by Automated count 2022-10-26 15:34:16 29.4 Cell/uL F 0.0-400.0 Lymphocytes [#/volume] in Blood by Automated count 2022-10-26 15:34:16 1925.7 Cell/uL F 1100.0-4800. 0 Basophils/100 leukocytes in Blood by Automated count 2022-09-29 14:59:48 0.5 % F Lymphocytes/100 leukocytes in Blood by Automated count 2022-09-29 14:59:48 33.5 % F Neutrophils/100 leukocytes in Blood by Automated count 2022-09-29 14:59:48 53.4 % F Monocytes/100 leukocytes in Blood by Automated count 2022-09-29 14:59:48 6.8 % F Eosinophils/100 leukocytes in Blood by Automated count 2022-09-29 14:59:48 5.8 % F Leukocytes [#/volume] in Blood by Automated count 2022-09-29 14:59:48 6.7 x 10'3 cells/uL F 4.5-11.0 Monocytes [#/volume] in Blood by Automated count 2022-09-29 14:59:48 456.28 Cell/uL F 0.0-1100.0 Basophils [#/volume] in Blood by Automated count 2022-09-29 14:59:48 33.55 Cell/uL F 0.0-400.0 Neutrophils [#/volume] in Blood by Automated count 2022-09-29 14:59:48 3583.14 Cell/uL F 2000.0-8800. 0 Lymphocytes [#/volume] in Blood by Automated count 2022-09-29 14:59:48 2247.85 Cell/uL F 1100.0-4800. 0 Eosinophils [#/volume] in Blood by Automated count 2022-09-29 14:59:48 389.18 Cell/uL F 0.0-700.0 Basophils/100 leukocytes in Blood by Automated count 2022-08-25 06:44:45 0.9 % F Neutrophils/100 leukocytes in Blood by Automated count 2022-08-25 06:44:45 39.8 % F Lymphocytes/100 leukocytes in Blood by Automated count 2022-08-25 06:44:45 45.9 % F Monocytes/100 leukocytes in Blood by Automated count 2022-08-25 06:44:45 10.4 % F Leukocytes [#/volume] in Blood by Automated count 2022-08-25 06:44:45 5.2 x 10'3 cells/uL F 4.5-11.0 Eosinophils/100 leukocytes in Blood by Automated count 2022-08-25 06:44:45 3 % F Neutrophils [#/volume] in Blood by Automated count 2022-08-25 06:44:45 2057.66 Cell/uL F 2000.0-8800. 0 Lymphocytes [#/volume] in Blood by Automated count 2022-08-25 06:44:45 2373.03 Cell/uL F 1100.0-4800. 0 Monocytes [#/volume] in Blood by Automated count 2022-08-25 06:44:45 537.68 Cell/uL F 0.0-1100.0 Basophils [#/volume] in Blood by Automated count 2022-08-25 06:44:45 46.53 Cell/uL F 0.0-400.0 Eosinophils [#/volume] in Blood by Automated count 2022-08-25 06:44:45 155.1 Cell/uL F 0.0-700.0 TNC (Total Nucleated Count) - Body Fluid 2022-08-25 05:52:46 20 Cell/uL F APPEARANCE - BODY FLUID 2022-08-25 05:52:46 Clear F EOSINOPHILS - BODY FLUID 2022-08-25 05:52:46 * F LYMPHOCYTES - BODY FLUID 2022-08-25 05:52:46 * F MESOTHELIAL CELLS - BFL 2022-08-25 05:52:46 * F RBC COUNT - BODY FLUID 2022-08-25 05:52:46 24281 Cell/uL F COLOR - BODY FLUID 2022-08-25 05:52:46 Colorless F Monocytes - Body Fluid 2022-08-25 05:52:46 * F NEUTROPHILS-BFL 2022-08-25 05:52:46 * F UNCLASSIFIED CELL 2022-08-25 05:52:46 * F FLUID TYPE 2022-08-23 21:37:02 peritoneal F MineralBone Disorder Description Draw Date Result/Unit Status Ref Range Result Comments CA CORRECTED 2024-07-26 07:39:28 9.3 mg/dL F CA CORRECTED 2024-07-26 07:39:28 9.3 mg/dL F CA CORRECTED 2024-07-26 07:39:28 9.3 mg/dL F CA/PHOS PRODUCT 2024-07-26 07:38:31 41 Calc F 21.0-53.0 CA*PO4 CORRCTD 2024-07-26 07:38:31 41.7 Calc F 21.0-53.0 CA/PHOS PRODUCT 2024-07-26 07:38:31 41 Calc F 21.0-53.0 CA*PO4 CORRCTD 2024-07-26 07:38:31 41.7 Calc F 21.0-53.0 CA*PO4 CORRCTD 2024-07-26 07:38:31 41.7 Calc F 21.0-53.0 CA/PHOS PRODUCT 2024-07-26 07:38:31 41 Calc F 21.0-53.0 Calcium [Mass/volume] in Serum or Plasma 2024-07-26 07:21:16 9.1 mg/dL F 8.7-10.4 Calcium [Mass/volume] in Serum or Plasma 2024-07-26 07:21:16 9.1 mg/dL F 8.7-10.4 Calcium [Mass/volume] in Serum or Plasma 2024-07-26 07:21:16 9.1 mg/dL F 8.7-10.4 Parathyrin.intact [Mass/volume] in Serum or Plasma 2024-07-26 06:34:14 515 pg/mL F 18.0-80.0 Parathyrin.intact [Mass/volume] in Serum or Plasma 2024-07-26 06:34:14 515 pg/mL F 18.0-80.0 Parathyrin.intact [Mass/volume] in Serum or Plasma 2024-07-26 06:34:14 515 pg/mL F 18.0-80.0 Magnesium [Mass/volume] in Serum or Plasma 2024-07-25 16:24:37 2 mg/dL F 1.3-2.7 Phosphate [Mass/volume] in Serum or Plasma 2024-07-25 16:24:37 4.5 mg/dL F 2.4-5.1 Alkaline phosphatase [Enzymatic activity/volume] in Serum or Plasma 2024-07-25 16:24:37 96 U/L F 46.0-116.0 Alkaline phosphatase [Enzymatic activity/volume] in Serum or Plasma 2024-07-25 16:24:37 96 U/L F 46.0-116.0 Phosphate [Mass/volume] in Serum or Plasma 2024-07-25 16:24:37 4.5 mg/dL F 2.4-5.1 Magnesium [Mass/volume] in Serum or Plasma 2024-07-25 16:24:37 2 mg/dL F 1.3-2.7 Alkaline phosphatase [Enzymatic activity/volume] in Serum or Plasma 2024-07-25 16:24:37 96 U/L F 46.0-116.0 Phosphate [Mass/volume] in Serum or Plasma 2024-07-25 16:24:37 4.5 mg/dL F 2.4-5.1 Magnesium [Mass/volume] in Serum or Plasma 2024-07-25 16:24:37 2 mg/dL F 1.3-2.7 CA CORRECTED 2024-06-27 16:46:48 9 mg/dL F CA CORRECTED 2024-06-27 16:46:48 9 mg/dL F CA CORRECTED 2024-06-27 16:46:48 9 mg/dL F CA/PHOS PRODUCT 2024-06-27 16:43:38 49 Calc F 21.0-53.0 CA*PO4 CORRCTD 2024-06-27 16:43:38 49.4 Calc F 21.0-53.0 CA/PHOS PRODUCT 2024-06-27 16:43:38 49 Calc F 21.0-53.0 CA*PO4 CORRCTD 2024-06-27 16:43:38 49.4 Calc F 21.0-53.0 CA/PHOS PRODUCT 2024-06-27 16:43:38 49 Calc F 21.0-53.0 CA*PO4 CORRCTD 2024-06-27 16:43:38 49.4 Calc F 21.0-53.0 Calcium [Mass/volume] in Serum or Plasma 2024-06-27 16:39:34 8.9 mg/dL F 8.7-10.4 Calcium [Mass/volume] in Serum or Plasma 2024-06-27 16:39:34 8.9 mg/dL F 8.7-10.4 Calcium [Mass/volume] in Serum or Plasma 2024-06-27 16:39:34 8.9 mg/dL F 8.7-10.4 Parathyrin.intact [Mass/volume] in Serum or Plasma 2024-06-27 15:33:15 684 pg/mL F 18.0-80.0 Parathyrin.intact [Mass/volume] in Serum or Plasma 2024-06-27 15:33:15 684 pg/mL F 18.0-80.0 Parathyrin.intact [Mass/volume] in Serum or Plasma 2024-06-27 15:33:15 684 pg/mL F 18.0-80.0 Alkaline phosphatase [Enzymatic activity/volume] in Serum or Plasma 2024-06-27 15:04:18 98 U/L F 46.0-116.0 Phosphate [Mass/volume] in Serum or Plasma 2024-06-27 15:04:18 5.5 mg/dL F 2.4-5.1 Magnesium [Mass/volume] in Serum or Plasma 2024-06-27 15:04:18 1.8 mg/dL F 1.3-2.7 Alkaline phosphatase [Enzymatic activity/volume] in Serum or Plasma 2024-06-27 15:04:18 98 U/L F 46.0-116.0 Phosphate [Mass/volume] in Serum or Plasma 2024-06-27 15:04:18 5.5 mg/dL F 2.4-5.1 Magnesium [Mass/volume] in Serum or Plasma 2024-06-27 15:04:18 1.8 mg/dL F 1.3-2.7 Alkaline phosphatase [Enzymatic activity/volume] in Serum or Plasma 2024-06-27 15:04:18 98 U/L F 46.0-116.0 Phosphate [Mass/volume] in Serum or Plasma 2024-06-27 15:04:18 5.5 mg/dL F 2.4-5.1 Magnesium [Mass/volume] in Serum or Plasma 2024-06-27 15:04:18 1.8 mg/dL F 1.3-2.7 Parathyrin.intact [Mass/volume] in Serum or Plasma 2024-05-23 16:33:17 1009 pg/mL F 18.0-80.0 Parathyrin.intact [Mass/volume] in Serum or Plasma 2024-05-23 16:33:17 1009 pg/mL F 18.0-80.0 CA CORRECTED 2024-05-23 16:10:30 8.9 mg/dL F CA CORRECTED 2024-05-23 16:10:30 8.9 mg/dL F CA/PHOS PRODUCT 2024-05-23 16:08:26 50.2 Calc F 21.0-53.0 CA*PO4 CORRCTD 2024-05-23 16:08:26 50.7 Calc F 21.0-53.0 CA/PHOS PRODUCT 2024-05-23 16:08:26 50.2 Calc F 21.0-53.0 CA*PO4 CORRCTD 2024-05-23 16:08:26 50.7 Calc F 21.0-53.0 Calcium [Mass/volume] in Serum or Plasma 2024-05-23 16:07:28 8.8 mg/dL F 8.7-10.4 Calcium [Mass/volume] in Serum or Plasma 2024-05-23 16:07:28 8.8 mg/dL F 8.7-10.4 Alkaline phosphatase [Enzymatic activity/volume] in Serum or Plasma 2024-05-23 13:16:17 86 U/L F 46.0-116.0 Phosphate [Mass/volume] in Serum or Plasma 2024-05-23 13:16:17 5.7 mg/dL F 2.4-5.1 Magnesium [Mass/volume] in Serum or Plasma 2024-05-23 13:16:17 1.9 mg/dL F 1.3-2.7 Alkaline phosphatase [Enzymatic activity/volume] in Serum or Plasma 2024-05-23 13:16:17 86 U/L F 46.0-116.0 Phosphate [Mass/volume] in Serum or Plasma 2024-05-23 13:16:17 5.7 mg/dL F 2.4-5.1 Magnesium [Mass/volume] in Serum or Plasma 2024-05-23 13:16:17 1.9 mg/dL F 1.3-2.7 CA CORRECTED 2024-02-22 07:17:12 9.3 mg/dL F CA CORRECTED 2024-02-22 07:17:12 9.3 mg/dL F CA CORRECTED 2024-02-22 07:17:12 9.3 mg/dL F CA/PHOS PRODUCT 2024-02-22 06:57:15 40.1 Calc F 21.0-53.0 CA*PO4 CORRCTD 2024-02-22 06:57:15 41.9 Calc F 21.0-53.0 CA/PHOS PRODUCT 2024-02-22 06:57:15 40.1 Calc F 21.0-53.0 CA*PO4 CORRCTD 2024-02-22 06:57:15 41.9 Calc F 21.0-53.0 CA/PHOS PRODUCT 2024-02-22 06:57:15 40.1 Calc F 21.0-53.0 CA*PO4 CORRCTD 2024-02-22 06:57:15 41.9 Calc F 21.0-53.0 Calcium [Mass/volume] in Serum or Plasma 2024-02-22 06:56:44 8.9 mg/dL F 8.7-10.4 Calcium [Mass/volume] in Serum or Plasma 2024-02-22 06:56:44 8.9 mg/dL F 8.7-10.4 Calcium [Mass/volume] in Serum or Plasma 2024-02-22 06:56:44 8.9 mg/dL F 8.7-10.4 Alkaline phosphatase [Enzymatic activity/volume] in Serum or Plasma 2024-02-21 12:29:27 118 U/L F 46.0-116.0 Phosphate [Mass/volume] in Serum or Plasma 2024-02-21 12:29:27 4.5 mg/dL F 2.4-5.1 Magnesium [Mass/volume] in Serum or Plasma 2024-02-21 12:29:27 2.1 mg/dL F 1.3-2.7 Alkaline phosphatase [Enzymatic activity/volume] in Serum or Plasma 2024-02-21 12:29:27 118 U/L F 46.0-116.0 Phosphate [Mass/volume] in Serum or Plasma 2024-02-21 12:29:27 4.5 mg/dL F 2.4-5.1 Magnesium [Mass/volume] in Serum or Plasma 2024-02-21 12:29:27 2.1 mg/dL F 1.3-2.7 Alkaline phosphatase [Enzymatic activity/volume] in Serum or Plasma 2024-02-21 12:29:27 118 U/L F 46.0-116.0 Phosphate [Mass/volume] in Serum or Plasma 2024-02-21 12:29:27 4.5 mg/dL F 2.4-5.1 Magnesium [Mass/volume] in Serum or Plasma 2024-02-21 12:29:27 2.1 mg/dL F 1.3-2.7 Parathyrin.intact [Mass/volume] in Serum or Plasma 2024-02-21 07:36:32 337 pg/mL F 18.0-80.0 Parathyrin.intact [Mass/volume] in Serum or Plasma 2024-02-21 07:36:32 337 pg/mL F 18.0-80.0 Parathyrin.intact [Mass/volume] in Serum or Plasma 2024-02-21 07:36:32 337 pg/mL F 18.0-80.0 CA CORRECTED 2023-12-22 05:20:15 9.2 mg/dL F CA CORRECTED 2023-12-22 05:20:15 9.2 mg/dL F CA/PHOS PRODUCT 2023-12-22 05:17:24 34.6 Calc F 21.0-53.0 CA*PO4 CORRCTD 2023-12-22 05:17:24 35 Calc F 21.0-53.0 CA/PHOS PRODUCT 2023-12-22 05:17:24 34.6 Calc F 21.0-53.0 CA*PO4 CORRCTD 2023-12-22 05:17:24 35 Calc F 21.0-53.0 Calcium [Mass/volume] in Serum or Plasma 2023-12-22 05:00:15 9.1 mg/dL F 8.7-10.4 Calcium [Mass/volume] in Serum or Plasma 2023-12-22 05:00:15 9.1 mg/dL F 8.7-10.4 Alkaline phosphatase [Enzymatic activity/volume] in Serum or Plasma 2023-12-22 01:38:38 110 U/L F 46.0-116.0 Phosphate [Mass/volume] in Serum or Plasma 2023-12-22 01:38:38 3.8 mg/dL F 2.4-5.1 Magnesium [Mass/volume] in Serum or Plasma 2023-12-22 01:38:38 2.1 mg/dL F 1.3-2.7 Alkaline phosphatase [Enzymatic activity/volume] in Serum or Plasma 2023-12-22 01:38:38 110 U/L F 46.0-116.0 Phosphate [Mass/volume] in Serum or Plasma 2023-12-22 01:38:38 3.8 mg/dL F 2.4-5.1 Magnesium [Mass/volume] in Serum or Plasma 2023-12-22 01:38:38 2.1 mg/dL F 1.3-2.7 Parathyrin.intact [Mass/volume] in Serum or Plasma 2023-12-22 01:00:27 378 pg/mL F 18.0-80.0 Parathyrin.intact [Mass/volume] in Serum or Plasma 2023-12-22 01:00:27 378 pg/mL F 18.0-80.0 Parathyrin.intact [Mass/volume] in Serum or Plasma 2023-11-12 03:20:15 684 pg/mL F 18.0-80.0 Parathyrin.intact [Mass/volume] in Serum or Plasma 2023-11-12 03:20:15 684 pg/mL F 18.0-80.0 Parathyrin.intact [Mass/volume] in Serum or Plasma 2023-11-12 03:20:15 684 pg/mL F 18.0-80.0 CA CORRECTED 2023-11-11 18:13:02 8.7 mg/dL F CA CORRECTED 2023-11-11 18:13:02 8.7 mg/dL F CA CORRECTED 2023-11-11 18:13:02 8.7 mg/dL F CA/PHOS PRODUCT 2023-11-11 18:11:10 35.6 Calc F 21.0-53.0 CA*PO4 CORRCTD 2023-11-11 18:11:10 38.3 Calc F 21.0-53.0 CA/PHOS PRODUCT 2023-11-11 18:11:10 35.6 Calc F 21.0-53.0 CA*PO4 CORRCTD 2023-11-11 18:11:10 38.3 Calc F 21.0-53.0 CA*PO4 CORRCTD 2023-11-11 18:11:10 38.3 Calc F 21.0-53.0 CA/PHOS PRODUCT 2023-11-11 18:11:10 35.6 Calc F 21.0-53.0 Calcium [Mass/volume] in Serum or Plasma 2023-11-11 18:10:56 8.1 mg/dL F 8.7-10.4 Calcium [Mass/volume] in Serum or Plasma 2023-11-11 18:10:56 8.1 mg/dL F 8.7-10.4 Calcium [Mass/volume] in Serum or Plasma 2023-11-11 18:10:56 8.1 mg/dL F 8.7-10.4 Alkaline phosphatase [Enzymatic activity/volume] in Serum or Plasma 2023-11-11 14:59:28 130 U/L F 46.0-116.0 Phosphate [Mass/volume] in Serum or Plasma 2023-11-11 14:59:28 4.4 mg/dL F 2.4-5.1 Magnesium [Mass/volume] in Serum or Plasma 2023-11-11 14:59:28 1.8 mg/dL F 1.3-2.7 Alkaline phosphatase [Enzymatic activity/volume] in Serum or Plasma 2023-11-11 14:59:28 130 U/L F 46.0-116.0 Phosphate [Mass/volume] in Serum or Plasma 2023-11-11 14:59:28 4.4 mg/dL F 2.4-5.1 Magnesium [Mass/volume] in Serum or Plasma 2023-11-11 14:59:28 1.8 mg/dL F 1.3-2.7 Phosphate [Mass/volume] in Serum or Plasma 2023-11-11 14:59:28 4.4 mg/dL F 2.4-5.1 Magnesium [Mass/volume] in Serum or Plasma 2023-11-11 14:59:28 1.8 mg/dL F 1.3-2.7 Alkaline phosphatase [Enzymatic activity/volume] in Serum or Plasma 2023-11-11 14:59:28 130 U/L F 46.0-116.0 CA CORRECTED 2023-09-01 08:41:28 9.2 mg/dL F CA CORRECTED 2023-09-01 08:41:28 9.2 mg/dL F CA/PHOS PRODUCT 2023-09-01 08:31:10 41.4 Calc F 21.0-53.0 CA*PO4 CORRCTD 2023-09-01 08:31:10 41.4 Calc F 21.0-53.0 CA/PHOS PRODUCT 2023-09-01 08:31:10 41.4 Calc F 21.0-53.0 CA*PO4 CORRCTD 2023-09-01 08:31:10 41.4 Calc F 21.0-53.0 Calcium [Mass/volume] in Serum or Plasma 2023-09-01 08:11:52 9.2 mg/dL F 8.7-10.4 Calcium [Mass/volume] in Serum or Plasma 2023-09-01 08:11:52 9.2 mg/dL F 8.7-10.4 Alkaline phosphatase [Enzymatic activity/volume] in Serum or Plasma 2023-08-31 21:30:36 102 U/L F 46.0-116.0 Phosphate [Mass/volume] in Serum or Plasma 2023-08-31 21:30:36 4.5 mg/dL F 2.4-5.1 Magnesium [Mass/volume] in Serum or Plasma 2023-08-31 21:30:36 2.1 mg/dL F 1.3-2.7 Alkaline phosphatase [Enzymatic activity/volume] in Serum or Plasma 2023-08-31 21:30:36 102 U/L F 46.0-116.0 Phosphate [Mass/volume] in Serum or Plasma 2023-08-31 21:30:36 4.5 mg/dL F 2.4-5.1 Magnesium [Mass/volume] in Serum or Plasma 2023-08-31 21:30:36 2.1 mg/dL F 1.3-2.7 Parathyrin.intact [Mass/volume] in Serum or Plasma 2023-08-31 07:16:06 359 pg/mL F 18.0-80.0 Parathyrin.intact [Mass/volume] in Serum or Plasma 2023-08-31 07:16:06 359 pg/mL F 18.0-80.0 CA CORRECTED 2023-04-28 08:06:46 8.8 mg/dL F CA CORRECTED 2023-04-28 08:06:46 8.8 mg/dL F CA CORRECTED 2023-04-28 08:06:46 8.8 mg/dL F CA/PHOS PRODUCT 2023-04-28 07:27:52 37.4 Calc F 21.0-53.0 CA*PO4 CORRCTD 2023-04-28 07:27:52 37.8 Calc F 21.0-53.0 CA/PHOS PRODUCT 2023-04-28 07:27:52 37.4 Calc F 21.0-53.0 CA*PO4 CORRCTD 2023-04-28 07:27:52 37.8 Calc F 21.0-53.0 CA/PHOS PRODUCT 2023-04-28 07:27:52 37.4 Calc F 21.0-53.0 CA*PO4 CORRCTD 2023-04-28 07:27:52 37.8 Calc F 21.0-53.0 Calcium [Mass/volume] in Serum or Plasma 2023-04-28 07:19:19 8.7 mg/dL F 8.7-10.4 Calcium [Mass/volume] in Serum or Plasma 2023-04-28 07:19:19 8.7 mg/dL F 8.7-10.4 Calcium [Mass/volume] in Serum or Plasma 2023-04-28 07:19:19 8.7 mg/dL F 8.7-10.4 Parathyrin.intact [Mass/volume] in Serum or Plasma 2023-04-28 02:45:27 453 pg/mL F 18.0-80.0 Parathyrin.intact [Mass/volume] in Serum or Plasma 2023-04-28 02:45:27 453 pg/mL F 18.0-80.0 Parathyrin.intact [Mass/volume] in Serum or Plasma 2023-04-28 02:45:27 453 pg/mL F 18.0-80.0 Phosphate [Mass/volume] in Serum or Plasma 2023-04-27 22:17:39 4.3 mg/dL F 2.4-5.1 Phosphate [Mass/volume] in Serum or Plasma 2023-04-27 22:17:39 4.3 mg/dL F 2.4-5.1 Phosphate [Mass/volume] in Serum or Plasma 2023-04-27 22:17:39 4.3 mg/dL F 2.4-5.1 Alkaline phosphatase [Enzymatic activity/volume] in Serum or Plasma 2023-04-27 22:17:37 113 U/L F 46.0-116.0 Magnesium [Mass/volume] in Serum or Plasma 2023-04-27 22:17:37 1.8 mg/dL F 1.3-2.7 Alkaline phosphatase [Enzymatic activity/volume] in Serum or Plasma 2023-04-27 22:17:37 113 U/L F 46.0-116.0 Magnesium [Mass/volume] in Serum or Plasma 2023-04-27 22:17:37 1.8 mg/dL F 1.3-2.7 Magnesium [Mass/volume] in Serum or Plasma 2023-04-27 22:17:37 1.8 mg/dL F 1.3-2.7 Alkaline phosphatase [Enzymatic activity/volume] in Serum or Plasma 2023-04-27 22:17:37 113 U/L F 46.0-116.0 CA CORRECTED 2023-02-25 19:19:06 8.8 mg/dL F CA/PHOS PRODUCT 2023-02-25 19:15:51 43.5 Calc F 21.0-53.0 CA*PO4 CORRCTD 2023-02-25 19:15:51 44 Calc F 21.0-53.0 Calcium [Mass/volume] in Serum or Plasma 2023-02-25 19:13:48 8.7 mg/dL F 8.7-10.4 Alkaline phosphatase [Enzymatic activity/volume] in Serum or Plasma 2023-02-25 14:50:22 137 U/L F 46.0-116.0 Phosphate [Mass/volume] in Serum or Plasma 2023-02-25 14:50:22 5 mg/dL F 2.4-5.1 Magnesium [Mass/volume] in Serum or Plasma 2023-02-25 14:50:22 2.1 mg/dL F 1.3-2.7 Parathyrin.intact [Mass/volume] in Serum or Plasma 2023-02-25 06:41:11 618 pg/mL F 18.0-80.0 CA CORRECTED 2022-10-27 09:15:53 9.2 mg/dL F CA CORRECTED 2022-10-27 09:15:53 9.2 mg/dL F CA/PHOS PRODUCT 2022-10-27 03:24:55 32.4 Calc F 21.0-53.0 CA*PO4 CORRCTD 2022-10-27 03:24:55 33.1 Calc F 21.0-53.0 CA*PO4 CORRCTD 2022-10-27 03:24:55 33.1 Calc F 21.0-53.0 CA/PHOS PRODUCT 2022-10-27 03:24:55 32.4 Calc F 21.0-53.0 Calcium [Mass/volume] in Serum or Plasma 2022-10-27 03:21:58 9 mg/dL F 8.7-10.4 Calcium [Mass/volume] in Serum or Plasma 2022-10-27 03:21:58 9 mg/dL F 8.7-10.4 Parathyrin.intact [Mass/volume] in Serum or Plasma 2022-10-26 16:37:17 419 pg/mL F 18.0-80.0 Parathyrin.intact [Mass/volume] in Serum or Plasma 2022-10-26 16:37:17 419 pg/mL F 18.0-80.0 Alkaline phosphatase [Enzymatic activity/volume] in Serum or Plasma 2022-10-26 15:21:16 116 U/L F 46.0-116.0 Phosphate [Mass/volume] in Serum or Plasma 2022-10-26 15:21:16 3.6 mg/dL F 2.4-5.1 Magnesium [Mass/volume] in Serum or Plasma 2022-10-26 15:21:16 1.9 mg/dL F 1.3-2.7 Alkaline phosphatase [Enzymatic activity/volume] in Serum or Plasma 2022-10-26 15:21:16 116 U/L F 46.0-116.0 Phosphate [Mass/volume] in Serum or Plasma 2022-10-26 15:21:16 3.6 mg/dL F 2.4-5.1 Magnesium [Mass/volume] in Serum or Plasma 2022-10-26 15:21:16 1.9 mg/dL F 1.3-2.7 CA CORRECTED 2022-09-30 09:04:16 9 mg/dL F CA/PHOS PRODUCT 2022-09-29 22:51:38 46.8 Calc F 21.0-53.0 CA*PO4 CORRCTD 2022-09-29 22:51:38 46.8 Calc F 21.0-53.0 Calcium [Mass/volume] in Serum or Plasma 2022-09-29 22:50:14 9 mg/dL F 8.7-10.4 Parathyrin.intact [Mass/volume] in Serum or Plasma 2022-09-29 18:07:35 443 pg/mL F 18.0-80.0 Alkaline phosphatase [Enzymatic activity/volume] in Serum or Plasma 2022-09-29 14:53:50 143 U/L F 46.0-116.0 Phosphate [Mass/volume] in Serum or Plasma 2022-09-29 14:53:50 5.2 mg/dL F 2.4-5.1 Magnesium [Mass/volume] in Serum or Plasma 2022-09-29 14:53:50 1.9 mg/dL F 1.3-2.7 CA CORRECTED 2022-08-25 07:00:54 9.5 mg/dL F CA/PHOS PRODUCT 2022-08-25 06:57:22 35.2 Calc F 21.0-53.0 CA*PO4 CORRCTD 2022-08-25 06:57:22 35.2 Calc F 21.0-53.0 Calcium [Mass/volume] in Serum or Plasma 2022-08-25 06:27:41 9.5 mg/dL F 8.7-10.4 Parathyrin.intact [Mass/volume] in Serum or Plasma 2022-08-25 03:26:47 353 pg/mL F 18.0-80.0 Alkaline phosphatase [Enzymatic activity/volume] in Serum or Plasma 2022-08-25 02:57:50 107 U/L F 46.0-116.0 Phosphate [Mass/volume] in Serum or Plasma 2022-08-25 02:57:50 3.7 mg/dL F 2.4-5.1 Magnesium [Mass/volume] in Serum or Plasma 2022-08-25 02:57:50 2 mg/dL F 1.3-2.7 Nutrition Description Draw Date Result/Unit Status Ref Range Result Comments Potassium [Moles/volume] in Serum or Plasma 2024-07-26 07:21:16 4.1 mEq/L F 3.5-5.5 Potassium [Moles/volume] in Serum or Plasma 2024-07-26 07:21:16 4.1 mEq/L F 3.5-5.5 Potassium [Moles/volume] in Serum or Plasma 2024-07-26 07:21:16 4.1 mEq/L F 3.5-5.5 GLOBULIN 2024-07-25 16:25:52 2.6 g/dL F 0.9-5.0 A/G RATIO 2024-07-25 16:25:52 1.5 Calc F 1.0-2.5 A/G RATIO 2024-07-25 16:25:52 1.5 Calc F 1.0-2.5 GLOBULIN 2024-07-25 16:25:52 2.6 g/dL F 0.9-5.0 A/G RATIO 2024-07-25 16:25:52 1.5 Calc F 1.0-2.5 GLOBULIN 2024-07-25 16:25:52 2.6 g/dL F 0.9-5.0 Albumin [Mass/volume] in Serum or Plasma by Bromocresol green (BCG) dye binding method 2024-07-25 16:24:37 3.8 g/dL F 3.4-4.8 Protein [Mass/volume] in Serum or Plasma 2024-07-25 16:24:37 6.4 g/dL F 5.7-8.2 Bicarbonate [Moles/volume] in Serum or Plasma 2024-07-25 16:24:37 28 mEq/L F 20.0-31.0 Glucose [Mass/volume] in Serum or Plasma 2024-07-25 16:24:37 242 mg/dL F 70.0-99.0 Lactate dehydrogenase [Enzymatic activity/volume] in Serum or Plasma 2024-07-25 16:24:37 350 U/L F 120.0-246.0 Albumin [Mass/volume] in Serum or Plasma by Bromocresol green (BCG) dye binding method 2024-07-25 16:24:37 3.8 g/dL F 3.4-4.8 Bicarbonate [Moles/volume] in Serum or Plasma 2024-07-25 16:24:37 28 mEq/L F 20.0-31.0 Glucose [Mass/volume] in Serum or Plasma 2024-07-25 16:24:37 242 mg/dL F 70.0-99.0 Lactate dehydrogenase [Enzymatic activity/volume] in Serum or Plasma 2024-07-25 16:24:37 350 U/L F 120.0-246.0 Protein [Mass/volume] in Serum or Plasma 2024-07-25 16:24:37 6.4 g/dL F 5.7-8.2 Albumin [Mass/volume] in Serum or Plasma by Bromocresol green (BCG) dye binding method 2024-07-25 16:24:37 3.8 g/dL F 3.4-4.8 Bicarbonate [Moles/volume] in Serum or Plasma 2024-07-25 16:24:37 28 mEq/L F 20.0-31.0 Glucose [Mass/volume] in Serum or Plasma 2024-07-25 16:24:37 242 mg/dL F 70.0-99.0 Lactate dehydrogenase [Enzymatic activity/volume] in Serum or Plasma 2024-07-25 16:24:37 350 U/L F 120.0-246.0 Protein [Mass/volume] in Serum or Plasma 2024-07-25 16:24:37 6.4 g/dL F 5.7-8.2 Potassium [Moles/volume] in Serum or Plasma 2024-06-27 16:39:34 3.6 mEq/L F 3.5-5.5 Potassium [Moles/volume] in Serum or Plasma 2024-06-27 16:39:34 3.6 mEq/L F 3.5-5.5 Potassium [Moles/volume] in Serum or Plasma 2024-06-27 16:39:34 3.6 mEq/L F 3.5-5.5 A/G RATIO 2024-06-27 15:05:04 1.5 Calc F 1.0-2.5 GLOBULIN 2024-06-27 15:05:04 2.6 g/dL F 0.9-5.0 A/G RATIO 2024-06-27 15:05:04 1.5 Calc F 1.0-2.5 GLOBULIN 2024-06-27 15:05:04 2.6 g/dL F 0.9-5.0 A/G RATIO 2024-06-27 15:05:04 1.5 Calc F 1.0-2.5 GLOBULIN 2024-06-27 15:05:04 2.6 g/dL F 0.9-5.0 Albumin [Mass/volume] in Serum or Plasma by Bromocresol green (BCG) dye binding method 2024-06-27 15:04:18 3.9 g/dL F 3.4-4.8 Bicarbonate [Moles/volume] in Serum or Plasma 2024-06-27 15:04:18 28 mEq/L F 20.0-31.0 Glucose [Mass/volume] in Serum or Plasma 2024-06-27 15:04:18 332 mg/dL F 70.0-99.0 Lactate dehydrogenase [Enzymatic activity/volume] in Serum or Plasma 2024-06-27 15:04:18 326 U/L F 120.0-246.0 Protein [Mass/volume] in Serum or Plasma 2024-06-27 15:04:18 6.5 g/dL F 5.7-8.2 Protein [Mass/volume] in Serum or Plasma 2024-06-27 15:04:18 6.5 g/dL F 5.7-8.2 Albumin [Mass/volume] in Serum or Plasma by Bromocresol green (BCG) dye binding method 2024-06-27 15:04:18 3.9 g/dL F 3.4-4.8 Bicarbonate [Moles/volume] in Serum or Plasma 2024-06-27 15:04:18 28 mEq/L F 20.0-31.0 Glucose [Mass/volume] in Serum or Plasma 2024-06-27 15:04:18 332 mg/dL F 70.0-99.0 Lactate dehydrogenase [Enzymatic activity/volume] in Serum or Plasma 2024-06-27 15:04:18 326 U/L F 120.0-246.0 Bicarbonate [Moles/volume] in Serum or Plasma 2024-06-27 15:04:18 28 mEq/L F 20.0-31.0 Albumin [Mass/volume] in Serum or Plasma by Bromocresol green (BCG) dye binding method 2024-06-27 15:04:18 3.9 g/dL F 3.4-4.8 Glucose [Mass/volume] in Serum or Plasma 2024-06-27 15:04:18 332 mg/dL F 70.0-99.0 Lactate dehydrogenase [Enzymatic activity/volume] in Serum or Plasma 2024-06-27 15:04:18 326 U/L F 120.0-246.0 Protein [Mass/volume] in Serum or Plasma 2024-06-27 15:04:18 6.5 g/dL F 5.7-8.2 Potassium [Moles/volume] in Serum or Plasma 2024-05-23 16:07:28 3.9 mEq/L F 3.5-5.5 Potassium [Moles/volume] in Serum or Plasma 2024-05-23 16:07:28 3.9 mEq/L F 3.5-5.5 A/G RATIO 2024-05-23 13:16:21 1.5 Calc F 1.0-2.5 GLOBULIN 2024-05-23 13:16:21 2.6 g/dL F 0.9-5.0 A/G RATIO 2024-05-23 13:16:21 1.5 Calc F 1.0-2.5 GLOBULIN 2024-05-23 13:16:21 2.6 g/dL F 0.9-5.0 Albumin [Mass/volume] in Serum or Plasma by Bromocresol green (BCG) dye binding method 2024-05-23 13:16:17 3.9 g/dL F 3.4-4.8 Bicarbonate [Moles/volume] in Serum or Plasma 2024-05-23 13:16:17 26 mEq/L F 20.0-31.0 Glucose [Mass/volume] in Serum or Plasma 2024-05-23 13:16:17 176 mg/dL F 70.0-99.0 Lactate dehydrogenase [Enzymatic activity/volume] in Serum or Plasma 2024-05-23 13:16:17 299 U/L F 120.0-246.0 Protein [Mass/volume] in Serum or Plasma 2024-05-23 13:16:17 6.5 g/dL F 5.7-8.2 Albumin [Mass/volume] in Serum or Plasma by Bromocresol green (BCG) dye binding method 2024-05-23 13:16:17 3.9 g/dL F 3.4-4.8 Bicarbonate [Moles/volume] in Serum or Plasma 2024-05-23 13:16:17 26 mEq/L F 20.0-31.0 Glucose [Mass/volume] in Serum or Plasma 2024-05-23 13:16:17 176 mg/dL F 70.0-99.0 Lactate dehydrogenase [Enzymatic activity/volume] in Serum or Plasma 2024-05-23 13:16:17 299 U/L F 120.0-246.0 Protein [Mass/volume] in Serum or Plasma 2024-05-23 13:16:17 6.5 g/dL F 5.7-8.2 Potassium [Moles/volume] in Serum or Plasma 2024-02-22 06:56:45 4.2 mEq/L F 3.5-5.5 Potassium [Moles/volume] in Serum or Plasma 2024-02-22 06:56:45 4.2 mEq/L F 3.5-5.5 Potassium [Moles/volume] in Serum or Plasma 2024-02-22 06:56:45 4.2 mEq/L F 3.5-5.5 A/G RATIO 2024-02-21 12:30:07 1.5 Calc F 1.0-2.5 GLOBULIN 2024-02-21 12:30:07 2.4 g/dL F 0.9-5.0 LDL-CHOLESTEROL 2024-02-21 12:30:07 76 mg/dL F 0.0-99.0 CHOL/HDL RATIO 2024-02-21 12:30:07 4.1 Calc F 3.3-5.0 VLDL-CHOL(CALC) 2024-02-21 12:30:07 22 mg/dL F 0.0-29.0 A/G RATIO 2024-02-21 12:30:07 1.5 Calc F 1.0-2.5 GLOBULIN 2024-02-21 12:30:07 2.4 g/dL F 0.9-5.0 LDL-CHOLESTEROL 2024-02-21 12:30:07 76 mg/dL F 0.0-99.0 VLDL-CHOL(CALC) 2024-02-21 12:30:07 22 mg/dL F 0.0-29.0 CHOL/HDL RATIO 2024-02-21 12:30:07 4.1 Calc F 3.3-5.0 A/G RATIO 2024-02-21 12:30:07 1.5 Calc F 1.0-2.5 GLOBULIN 2024-02-21 12:30:07 2.4 g/dL F 0.9-5.0 LDL-CHOLESTEROL 2024-02-21 12:30:07 76 mg/dL F 0.0-99.0 VLDL-CHOL(CALC) 2024-02-21 12:30:07 22 mg/dL F 0.0-29.0 CHOL/HDL RATIO 2024-02-21 12:30:07 4.1 Calc F 3.3-5.0 Albumin [Mass/volume] in Serum or Plasma by Bromocresol green (BCG) dye binding method 2024-02-21 12:29:27 3.5 g/dL F 3.4-4.8 Cholesterol [Mass/volume] in Serum or Plasma 2024-02-21 12:29:27 130 mg/dL F 0.0-199.0 Bicarbonate [Moles/volume] in Serum or Plasma 2024-02-21 12:29:27 21 mEq/L F 20.0-31.0 Glucose [Mass/volume] in Serum or Plasma 2024-02-21 12:29:27 430 mg/dL F 70.0-99.0 Lactate dehydrogenase [Enzymatic activity/volume] in Serum or Plasma 2024-02-21 12:29:27 327 U/L F 120.0-246.0 Protein [Mass/volume] in Serum or Plasma 2024-02-21 12:29:27 108 mg/dL F 0.0-149.0 Protein [Mass/volume] in Serum or Plasma 2024-02-21 12:29:27 5.9 g/dL F 5.7-8.2 Cholesterol in HDL [Mass/volume] in Serum or Plasma 2024-02-21 12:29:27 32 mg/dL F 40.0-60.0 Albumin [Mass/volume] in Serum or Plasma by Bromocresol green (BCG) dye binding method 2024-02-21 12:29:27 3.5 g/dL F 3.4-4.8 Cholesterol [Mass/volume] in Serum or Plasma 2024-02-21 12:29:27 130 mg/dL F 0.0-199.0 Bicarbonate [Moles/volume] in Serum or Plasma 2024-02-21 12:29:27 21 mEq/L F 20.0-31.0 Glucose [Mass/volume] in Serum or Plasma 2024-02-21 12:29:27 430 mg/dL F 70.0-99.0 Lactate dehydrogenase [Enzymatic activity/volume] in Serum or Plasma 2024-02-21 12:29:27 327 U/L F 120.0-246.0 Protein [Mass/volume] in Serum or Plasma 2024-02-21 12:29:27 108 mg/dL F 0.0-149.0 Protein [Mass/volume] in Serum or Plasma 2024-02-21 12:29:27 5.9 g/dL F 5.7-8.2 Cholesterol in HDL [Mass/volume] in Serum or Plasma 2024-02-21 12:29:27 32 mg/dL F 40.0-60.0 Albumin [Mass/volume] in Serum or Plasma by Bromocresol green (BCG) dye binding method 2024-02-21 12:29:27 3.5 g/dL F 3.4-4.8 Cholesterol [Mass/volume] in Serum or Plasma 2024-02-21 12:29:27 130 mg/dL F 0.0-199.0 Bicarbonate [Moles/volume] in Serum or Plasma 2024-02-21 12:29:27 21 mEq/L F 20.0-31.0 Glucose [Mass/volume] in Serum or Plasma 2024-02-21 12:29:27 430 mg/dL F 70.0-99.0 Lactate dehydrogenase [Enzymatic activity/volume] in Serum or Plasma 2024-02-21 12:29:27 327 U/L F 120.0-246.0 Protein [Mass/volume] in Serum or Plasma 2024-02-21 12:29:27 108 mg/dL F 0.0-149.0 Protein [Mass/volume] in Serum or Plasma 2024-02-21 12:29:27 5.9 g/dL F 5.7-8.2 Cholesterol in HDL [Mass/volume] in Serum or Plasma 2024-02-21 12:29:27 32 mg/dL F 40.0-60.0 Potassium [Moles/volume] in Serum or Plasma 2023-12-22 05:00:15 4.1 mEq/L F 3.5-5.5 Potassium [Moles/volume] in Serum or Plasma 2023-12-22 05:00:15 4.1 mEq/L F 3.5-5.5 A/G RATIO 2023-12-22 01:39:34 1.5 Calc F 1.0-2.5 GLOBULIN 2023-12-22 01:39:34 2.6 g/dL F 0.9-5.0 A/G RATIO 2023-12-22 01:39:34 1.5 Calc F 1.0-2.5 GLOBULIN 2023-12-22 01:39:34 2.6 g/dL F 0.9-5.0 Albumin [Mass/volume] in Serum or Plasma by Bromocresol green (BCG) dye binding method 2023-12-22 01:38:38 3.9 g/dL F 3.4-4.8 Bicarbonate [Moles/volume] in Serum or Plasma 2023-12-22 01:38:38 29 mEq/L F 20.0-31.0 Glucose [Mass/volume] in Serum or Plasma 2023-12-22 01:38:38 392 mg/dL F 70.0-99.0 Lactate dehydrogenase [Enzymatic activity/volume] in Serum or Plasma 2023-12-22 01:38:38 313 U/L F 120.0-246.0 Protein [Mass/volume] in Serum or Plasma 2023-12-22 01:38:38 6.5 g/dL F 5.7-8.2 Albumin [Mass/volume] in Serum or Plasma by Bromocresol green (BCG) dye binding method 2023-12-22 01:38:38 3.9 g/dL F 3.4-4.8 Bicarbonate [Moles/volume] in Serum or Plasma 2023-12-22 01:38:38 29 mEq/L F 20.0-31.0 Glucose [Mass/volume] in Serum or Plasma 2023-12-22 01:38:38 392 mg/dL F 70.0-99.0 Lactate dehydrogenase [Enzymatic activity/volume] in Serum or Plasma 2023-12-22 01:38:38 313 U/L F 120.0-246.0 Protein [Mass/volume] in Serum or Plasma 2023-12-22 01:38:38 6.5 g/dL F 5.7-8.2 Potassium [Moles/volume] in Serum or Plasma 2023-11-11 18:10:56 3.8 mEq/L F 3.5-5.5 Potassium [Moles/volume] in Serum or Plasma 2023-11-11 18:10:56 3.8 mEq/L F 3.5-5.5 Potassium [Moles/volume] in Serum or Plasma 2023-11-11 18:10:56 3.8 mEq/L F 3.5-5.5 A/G RATIO 2023-11-11 15:00:06 1.3 Calc F 1.0-2.5 GLOBULIN 2023-11-11 15:00:06 2.6 g/dL F 0.9-5.0 GLOBULIN 2023-11-11 15:00:06 2.6 g/dL F 0.9-5.0 A/G RATIO 2023-11-11 15:00:06 1.3 Calc F 1.0-2.5 GLOBULIN 2023-11-11 15:00:06 2.6 g/dL F 0.9-5.0 A/G RATIO 2023-11-11 15:00:06 1.3 Calc F 1.0-2.5 Albumin [Mass/volume] in Serum or Plasma by Bromocresol green (BCG) dye binding method 2023-11-11 14:59:28 3.3 g/dL F 3.4-4.8 Bicarbonate [Moles/volume] in Serum or Plasma 2023-11-11 14:59:28 28 mEq/L F 20.0-31.0 Glucose [Mass/volume] in Serum or Plasma 2023-11-11 14:59:28 260 mg/dL F 70.0-99.0 Lactate dehydrogenase [Enzymatic activity/volume] in Serum or Plasma 2023-11-11 14:59:28 345 U/L F 120.0-246.0 Protein [Mass/volume] in Serum or Plasma 2023-11-11 14:59:28 5.9 g/dL F 5.7-8.2 Albumin [Mass/volume] in Serum or Plasma by Bromocresol green (BCG) dye binding method 2023-11-11 14:59:28 3.3 g/dL F 3.4-4.8 Bicarbonate [Moles/volume] in Serum or Plasma 2023-11-11 14:59:28 28 mEq/L F 20.0-31.0 Glucose [Mass/volume] in Serum or Plasma 2023-11-11 14:59:28 260 mg/dL F 70.0-99.0 Lactate dehydrogenase [Enzymatic activity/volume] in Serum or Plasma 2023-11-11 14:59:28 345 U/L F 120.0-246.0 Protein [Mass/volume] in Serum or Plasma 2023-11-11 14:59:28 5.9 g/dL F 5.7-8.2 Albumin [Mass/volume] in Serum or Plasma by Bromocresol green (BCG) dye binding method 2023-11-11 14:59:28 3.3 g/dL F 3.4-4.8 Protein [Mass/volume] in Serum or Plasma 2023-11-11 14:59:28 5.9 g/dL F 5.7-8.2 Bicarbonate [Moles/volume] in Serum or Plasma 2023-11-11 14:59:28 28 mEq/L F 20.0-31.0 Glucose [Mass/volume] in Serum or Plasma 2023-11-11 14:59:28 260 mg/dL F 70.0-99.0 Lactate dehydrogenase [Enzymatic activity/volume] in Serum or Plasma 2023-11-11 14:59:28 345 U/L F 120.0-246.0 Potassium [Moles/volume] in Serum or Plasma 2023-09-01 08:11:52 3.8 mEq/L F 3.5-5.5 Potassium [Moles/volume] in Serum or Plasma 2023-09-01 08:11:52 3.8 mEq/L F 3.5-5.5 A/G RATIO 2023-08-31 21:30:57 1.5 Calc F 1.0-2.5 GLOBULIN 2023-08-31 21:30:57 2.7 g/dL F 0.9-5.0 LDL-CHOLESTEROL 2023-08-31 21:30:57 78 mg/dL F 0.0-99.0 VLDL-CHOL(CALC) 2023-08-31 21:30:57 20 mg/dL F 0.0-29.0 CHOL/HDL RATIO 2023-08-31 21:30:57 4.6 Calc F 3.3-5.0 A/G RATIO 2023-08-31 21:30:57 1.5 Calc F 1.0-2.5 GLOBULIN 2023-08-31 21:30:57 2.7 g/dL F 0.9-5.0 VLDL-CHOL(CALC) 2023-08-31 21:30:57 20 mg/dL F 0.0-29.0 LDL-CHOLESTEROL 2023-08-31 21:30:57 78 mg/dL F 0.0-99.0 CHOL/HDL RATIO 2023-08-31 21:30:57 4.6 Calc F 3.3-5.0 Albumin [Mass/volume] in Serum or Plasma by Bromocresol green (BCG) dye binding method 2023-08-31 21:30:36 4.1 g/dL F 3.4-4.8 Cholesterol [Mass/volume] in Serum or Plasma 2023-08-31 21:30:36 125 mg/dL F 0.0-199.0 Bicarbonate [Moles/volume] in Serum or Plasma 2023-08-31 21:30:36 27 mEq/L F 20.0-31.0 Glucose [Mass/volume] in Serum or Plasma 2023-08-31 21:30:36 353 mg/dL F 70.0-99.0 Lactate dehydrogenase [Enzymatic activity/volume] in Serum or Plasma 2023-08-31 21:30:36 230 U/L F 120.0-246.0 Protein [Mass/volume] in Serum or Plasma 2023-08-31 21:30:36 100 mg/dL F 0.0-149.0 Protein [Mass/volume] in Serum or Plasma 2023-08-31 21:30:36 6.8 g/dL F 5.7-8.2 Cholesterol in HDL [Mass/volume] in Serum or Plasma 2023-08-31 21:30:36 27 mg/dL F 40.0-60.0 Albumin [Mass/volume] in Serum or Plasma by Bromocresol green (BCG) dye binding method 2023-08-31 21:30:36 4.1 g/dL F 3.4-4.8 Cholesterol [Mass/volume] in Serum or Plasma 2023-08-31 21:30:36 125 mg/dL F 0.0-199.0 Bicarbonate [Moles/volume] in Serum or Plasma 2023-08-31 21:30:36 27 mEq/L F 20.0-31.0 Glucose [Mass/volume] in Serum or Plasma 2023-08-31 21:30:36 353 mg/dL F 70.0-99.0 Lactate dehydrogenase [Enzymatic activity/volume] in Serum or Plasma 2023-08-31 21:30:36 230 U/L F 120.0-246.0 Protein [Mass/volume] in Serum or Plasma 2023-08-31 21:30:36 100 mg/dL F 0.0-149.0 Protein [Mass/volume] in Serum or Plasma 2023-08-31 21:30:36 6.8 g/dL F 5.7-8.2 Cholesterol in HDL [Mass/volume] in Serum or Plasma 2023-08-31 21:30:36 27 mg/dL F 40.0-60.0 A/G RATIO 2023-04-27 22:17:55 1.6 Calc F 1.0-2.5 GLOBULIN 2023-04-27 22:17:55 2.5 g/dL F 0.9-5.0 A/G RATIO 2023-04-27 22:17:55 1.6 Calc F 1.0-2.5 GLOBULIN 2023-04-27 22:17:55 2.5 g/dL F 0.9-5.0 A/G RATIO 2023-04-27 22:17:55 1.6 Calc F 1.0-2.5 GLOBULIN 2023-04-27 22:17:55 2.5 g/dL F 0.9-5.0 Protein [Mass/volume] in Serum or Plasma 2023-04-27 22:17:39 6.4 g/dL F 5.7-8.2 Protein [Mass/volume] in Serum or Plasma 2023-04-27 22:17:39 6.4 g/dL F 5.7-8.2 Protein [Mass/volume] in Serum or Plasma 2023-04-27 22:17:39 6.4 g/dL F 5.7-8.2 Albumin [Mass/volume] in Serum or Plasma by Bromocresol green (BCG) dye binding method 2023-04-27 22:17:37 3.9 g/dL F 3.4-4.8 Bicarbonate [Moles/volume] in Serum or Plasma 2023-04-27 22:17:37 33 mEq/L F 20.0-31.0 Glucose [Mass/volume] in Serum or Plasma 2023-04-27 22:17:37 127 mg/dL F 70.0-99.0 Lactate dehydrogenase [Enzymatic activity/volume] in Serum or Plasma 2023-04-27 22:17:37 267 U/L F 120.0-246.0 Potassium [Moles/volume] in Serum or Plasma 2023-04-27 22:17:37 3.2 mEq/L F 3.5-5.5 Albumin [Mass/volume] in Serum or Plasma by Bromocresol green (BCG) dye binding method 2023-04-27 22:17:37 3.9 g/dL F 3.4-4.8 Bicarbonate [Moles/volume] in Serum or Plasma 2023-04-27 22:17:37 33 mEq/L F 20.0-31.0 Glucose [Mass/volume] in Serum or Plasma 2023-04-27 22:17:37 127 mg/dL F 70.0-99.0 Lactate dehydrogenase [Enzymatic activity/volume] in Serum or Plasma 2023-04-27 22:17:37 267 U/L F 120.0-246.0 Potassium [Moles/volume] in Serum or Plasma 2023-04-27 22:17:37 3.2 mEq/L F 3.5-5.5 Glucose [Mass/volume] in Serum or Plasma 2023-04-27 22:17:37 127 mg/dL F 70.0-99.0 Lactate dehydrogenase [Enzymatic activity/volume] in Serum or Plasma 2023-04-27 22:17:37 267 U/L F 120.0-246.0 Potassium [Moles/volume] in Serum or Plasma 2023-04-27 22:17:37 3.2 mEq/L F 3.5-5.5 Albumin [Mass/volume] in Serum or Plasma by Bromocresol green (BCG) dye binding method 2023-04-27 22:17:37 3.9 g/dL F 3.4-4.8 Bicarbonate [Moles/volume] in Serum or Plasma 2023-04-27 22:17:37 33 mEq/L F 20.0-31.0 A/G RATIO 2023-02-25 14:50:41 1.6 Calc F 1.0-2.5 GLOBULIN 2023-02-25 14:50:41 2.5 g/dL F 0.9-5.0 LDL-CHOLESTEROL 2023-02-25 14:50:41 68 mg/dL F 0.0-99.0 VLDL-CHOL(CALC) 2023-02-25 14:50:41 45 mg/dL F 0.0-29.0 CHOL/HDL RATIO 2023-02-25 14:50:41 5.5 Calc F 3.3-5.0 Albumin [Mass/volume] in Serum or Plasma by Bromocresol green (BCG) dye binding method 2023-02-25 14:50:22 3.9 g/dL F 3.4-4.8 Cholesterol [Mass/volume] in Serum or Plasma 2023-02-25 14:50:22 138 mg/dL F 0.0-199.0 Bicarbonate [Moles/volume] in Serum or Plasma 2023-02-25 14:50:22 27 mEq/L F 20.0-31.0 Glucose [Mass/volume] in Serum or Plasma 2023-02-25 14:50:22 144 mg/dL F 70.0-99.0 Lactate dehydrogenase [Enzymatic activity/volume] in Serum or Plasma 2023-02-25 14:50:22 291 U/L F 120.0-246.0 Protein [Mass/volume] in Serum or Plasma 2023-02-25 14:50:22 6.4 g/dL F 5.7-8.2 Protein [Mass/volume] in Serum or Plasma 2023-02-25 14:50:22 225 mg/dL F 0.0-149.0 Potassium [Moles/volume] in Serum or Plasma 2023-02-25 14:50:22 4.2 mEq/L F 3.5-5.5 Cholesterol in HDL [Mass/volume] in Serum or Plasma 2023-02-25 14:50:22 25 mg/dL F 40.0-60.0 A/G RATIO 2022-10-26 15:22:17 1.7 Calc F 1.0-2.5 GLOBULIN 2022-10-26 15:22:17 2.2 g/dL F 0.9-5.0 A/G RATIO 2022-10-26 15:22:17 1.7 Calc F 1.0-2.5 GLOBULIN 2022-10-26 15:22:17 2.2 g/dL F 0.9-5.0 Albumin [Mass/volume] in Serum or Plasma by Bromocresol green (BCG) dye binding method 2022-10-26 15:21:16 3.8 g/dL F 3.4-4.8 Bicarbonate [Moles/volume] in Serum or Plasma 2022-10-26 15:21:16 30 mEq/L F 20.0-31.0 Glucose [Mass/volume] in Serum or Plasma 2022-10-26 15:21:16 177 mg/dL F 70.0-99.0 Lactate dehydrogenase [Enzymatic activity/volume] in Serum or Plasma 2022-10-26 15:21:16 237 U/L F 120.0-246.0 Potassium [Moles/volume] in Serum or Plasma 2022-10-26 15:21:16 3.5 mEq/L F 3.5-5.5 Protein [Mass/volume] in Serum or Plasma 2022-10-26 15:21:16 6 g/dL F 5.7-8.2 Albumin [Mass/volume] in Serum or Plasma by Bromocresol green (BCG) dye binding method 2022-10-26 15:21:16 3.8 g/dL F 3.4-4.8 Lactate dehydrogenase [Enzymatic activity/volume] in Serum or Plasma 2022-10-26 15:21:16 237 U/L F 120.0-246.0 Potassium [Moles/volume] in Serum or Plasma 2022-10-26 15:21:16 3.5 mEq/L F 3.5-5.5 Protein [Mass/volume] in Serum or Plasma 2022-10-26 15:21:16 6 g/dL F 5.7-8.2 Bicarbonate [Moles/volume] in Serum or Plasma 2022-10-26 15:21:16 30 mEq/L F 20.0-31.0 Glucose [Mass/volume] in Serum or Plasma 2022-10-26 15:21:16 177 mg/dL F 70.0-99.0 A/G RATIO 2022-09-29 14:54:00 1.7 Calc F 1.0-2.5 GLOBULIN 2022-09-29 14:54:00 2.3 g/dL F 0.9-5.0 Bicarbonate [Moles/volume] in Serum or Plasma 2022-09-29 14:53:50 30 mEq/L F 20.0-31.0 Glucose [Mass/volume] in Serum or Plasma 2022-09-29 14:53:50 287 mg/dL F 70.0-99.0 Lactate dehydrogenase [Enzymatic activity/volume] in Serum or Plasma 2022-09-29 14:53:50 249 U/L F 120.0-246.0 Potassium [Moles/volume] in Serum or Plasma 2022-09-29 14:53:50 3.5 mEq/L F 3.5-5.5 Protein [Mass/volume] in Serum or Plasma 2022-09-29 14:53:50 6.3 g/dL F 5.7-8.2 Albumin [Mass/volume] in Serum or Plasma by Bromocresol green (BCG) dye binding method 2022-09-29 14:53:48 4 g/dL F 3.4-4.8 A/G RATIO 2022-08-25 02:58:54 1.8 Calc F 1.0-2.5 GLOBULIN 2022-08-25 02:58:54 2.3 g/dL F 0.9-5.0 LDL-CHOLESTEROL 2022-08-25 02:58:54 90 mg/dL F 0.0-99.0 VLDL-CHOL(CALC) 2022-08-25 02:58:54 27 mg/dL F 0.0-29.0 CHOL/HDL RATIO 2022-08-25 02:58:54 4.9 Calc F 3.3-5.0 Albumin [Mass/volume] in Serum or Plasma by Bromocresol green (BCG) dye binding method 2022-08-25 02:57:50 4.2 g/dL F 3.4-4.8 Cholesterol [Mass/volume] in Serum or Plasma 2022-08-25 02:57:50 147 mg/dL F 0.0-199.0 Bicarbonate [Moles/volume] in Serum or Plasma 2022-08-25 02:57:50 30 mEq/L F 20.0-31.0 Glucose [Mass/volume] in Serum or Plasma 2022-08-25 02:57:50 101 mg/dL F 70.0-99.0 Lactate dehydrogenase [Enzymatic activity/volume] in Serum or Plasma 2022-08-25 02:57:50 298 U/L F 120.0-246.0 Potassium [Moles/volume] in Serum or Plasma 2022-08-25 02:57:50 3.2 mEq/L F 3.5-5.5 Protein [Mass/volume] in Serum or Plasma 2022-08-25 02:57:50 137 mg/dL F 0.0-149.0 Protein [Mass/volume] in Serum or Plasma 2022-08-25 02:57:50 6.5 g/dL F 5.7-8.2 Cholesterol in HDL [Mass/volume] in Serum or Plasma 2022-08-25 02:57:50 30 mg/dL F 40.0-60.0 Encounters No encounter information to report Immunizations Ordered Immunization Name Filled Immunization Name Date Status Comments Refusal Reason [id number] 2024-06-26 18:30:00 TST-PPD intradermal 2024-03-27 18:30:00 TST-PPD intradermal 2023-01-26 15:40:00 Covid-19 Vaccination 2020-11-04 08:00:00 Plan of Treatment Planned Activity Provider Planned Date Details Commen ts Diagnostic Test Pending [facility] 2023-08-30 07:25:00 Hemoglobin [Mass/volume] in Blood [code = 718-7] Diagnostic Test Pending [facility] 2022-08-21 06:00:00 Reticulocytes/100 erythrocytes in Blood by Automated count [code = 39908-5] Diagnostic Test Pending [facility] 2022-08-21 06:00:00 Glucose [Mass/volume] in Serum or Plasma [code = 2345-7] Diagnostic Test Pending [facility] 2022-08-21 06:00:00 Ferritin [Mass/volume] in Serum or Plasma [code = 2276-4] Diagnostic Test Pending [facility] 2022-08-21 06:00:00 Aluminum [Mass/volume] in Serum or Plasma [code = 5574-9] Diagnostic Test Pending [facility] 2022-08-01 07:38:40 Parathyrin.intact [Mass/volume] in Serum or Plasma [code = 2731-8] Diagnostic Test Pending [facility] 2022-08-01 07:33:24 Alanine aminotransferase [Enzymatic activity/volume] in Serum or Plasma [code = 1742-6] Diagnostic Test Pending [facility] (PD) 2024-08-07 16:52:11 CCPD [code = [id number]] Diagnostic Test Pending [facility] (PD) 2024-06-10 14:26:46 CCPD [code = [id number]]
--- OUTSIDE RECORDS SUMMARY | 2024-08-18 13:00 | XMS_ITS | Patient Health Summary ---
Author Organization [facility] Address [address] [place] [address] Care Team Providers Care Senior Clinical Research Scientist Name Role Phone Aditya Castro Primary Care Provider Unavailab le Note from [facility],non-owned Affiliates and Associated Physician Practices is amultiple site organization consisting of ambulatory clinics and hospital sitesin [place], [place], [place] and [place]. This disclosure is being madepursuant to the Care Everywhere program and may not contain all information available regarding this patient. Last updated 18.[facility] Allergies * Allopurinol(Other) -High Criticality * Contrast-Iodinated Agents For Ct/Other(Rash) -Medium Criticality * Ticagrelor(Rash) -High Criticality * Red Dye(Rash) -Medium Criticality,Inactive Medications * Be aware that medications may not be up to date on this document. Alwaysverify current medications with the patient. * colchicine 0.6 MG tablet Take 0.6 mg by mouth every Monday, Monday & Monday * gemfibrozil (LOPID) 600 MG tablet Take 600 mg by mouth 2 times daily,before breakfast and supper * cetirizine (ZYRTEC) 10 MG tablet Take 10 mg by mouth once daily * calcitriol (ROCALTROL) 0.25 MCG capsule Take 0.25 mcg by mouth once daily * clopidogrel (PLAVIX) 75 MG tablet Take 75 mg by mouth once daily * aspirin (ASPIRIN) 81 MG chew tablet(Started 11/24/2018) Take 1 tablet by mouth once daily * carvedilol (COREG) 25 MG tablet Take 25 mg by mouth 2 times daily with morning and evening meal * cloNIDine (CATAPRES) 0.1 MG tablet Take 0.1 mg by mouth 2 times daily * isosorbide mononitrate CR 24hr (IMDUR) 30 MG tablet Take 30 mg by mouth once daily * isosorbide mononitrate CR 24hr (IMDUR) 60 MG tablet Take 60 mg by mouth once daily * nitroGLYCERIN (NITROSTAT) 0.4 MG tablet Dissolve 0.4 mg under the tongue as needed for Angina * terazosin (HYTRIN) 2 MG capsule Take 2 mg by mouth once daily * febuxostat (ULORIC) 40 MG tablet(Started 02/25/2019) Take 40 mg by mouth * atorvastatin (LIPITOR) 40 MG tablet(Started 02/28/2019) Take 40 mg by mouth at bedtime * atorvastatin (LIPITOR) 20 MG tablet(Started 02/23/2019) Take 40 mg by mouth at bedtime * cyclobenzaprine (FLEXERIL) 10 MG tablet(Started 01/25/2019) Take 10 mg by mouth every 12 hours as needed * vitamin D, ergocalciferol, (DRISDOL) 04130 units capsule(Started 02/13/2019) Take 50,000 Units by mouth every 7 days * ferrous sulfate EC (FERROUS SULFATE) 324 (65 Fe) MG tablet(Started 02/21/2019) Take 324 mg by mouth once daily * furosemide (LASIX) 40 MG tablet(Started 03/06/2019) Take 80 mg by mouth 2 times daily * hydrALAZINE (APRESOLINE) 100 MG tablet(Started 02/16/2019) Take 100 mg by mouth 3 times daily * raNITIdine (ZANTAC) 300 MG tablet(Started 02/28/2019) Take 300 mg by mouth 2 times daily * ranolazine ER 12hr (RANEXA) 500 MG tablet(Started 02/20/2019) Take 500 mg by mouth every 12 hours * traMADol (ULTRAM) 50 MG tablet(Started 11/14/2018) Take 50 mg by mouth every 8 hours as needed * ezetimibe (ZETIA) 10 MG tablet Take 10 mg by mouth once daily * ketoconazole (NIZORAL) 2 % shampoo(Started 04/23/2019) Apply to affected area once daily * TRUE METRIX BLOOD GLUCOSE TEST test strip(Started 04/17/2019) * GLUCAGON EMERGENCY injection(Started 04/18/2019) * fluticasone propionate (FLONASE) 50 MCG/ACT nasal spray(Started 04/24/2019) [place] 1 spray into each nostril once daily * epoetin (PROCRIT) 28310 UNIT/ML injection Inject subcutaneously every 14 days * benzonatate (TESSALON) 200 MG capsule(Started 04/18/2019) Take 1 capsule by mouth every 6 hours as needed * phentermine (IONAMINE) 30 MG capsule Take 30 mg by mouth every 24 hours * insulin lispro (ADMELOG) 100 UNIT/ML vial * selenium sulfide (SELSUN) 2.5 % lotion(Started 07/20/2020) APPLY TO FACE, LATHER AND RINSE OFF IN SHOWER AFTER 3 TO 5 MINUTES DIRECTED 3 refills by 07/20/2021 Active Problems Problem Noted Date Diagnosed Date Pre-transplant evaluation for kidney transplant 03/24/2020 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n ative heart [...] Comments Blood Pressure 140/60 07/13/2020 1:30 PM [employer] Pulse 65 07/13/2020 1:30 PM [employer] Temperature 36.1 ??C (97 ??F) 07/13/2020 1:30 PM [employer] Respiratory Rate 20 07/13/2020 1:30 PM [employer] Oxygen Saturation 95% 07/13/2020 1:30 PM [employer] Inhaled Oxygen Concentration - - Weight 134.3 kg (296 lb) 07/13/2020 1:30 PM [employer] Height 176.5 cm (5' 9.5 ) 07/13/2020 1:30 PM [employer] Body Mass Index 43.08 07/13/2020 1:30 PM [employer] Procedures * CARDIAC EKG ORDER(Performed 05/18/2020) * VAS ARTERIAL ANKLE ARM INDEX(Performed 05/14/2020) Performed for Pre-transplant evaluation for kidney transplant * VAS BILATERAL VENOUS DUPLEX LE(Performed 05/14/2020) Performed for Pre-transplant evaluation for kidney transplant * CT ABDOMEN PELVIS WO CONTRAST(Performed 05/14/2020) Performed for Pre-transplant evaluation for kidney transplant * ECHO STRESS W DOBUTAMINE(Performed 05/14/2020) Performed for Pre-transplant evaluation for kidney transplant * HLA ANTIBODY SCREEN LUM CLASS 1 ID(Performed 05/14/2020) Performed for Pre-transplant evaluation for kidney transplant * HLA ANTIBODY SCREEN LUM CLASS 2 ID(Performed 05/14/2020) Performed for Pre-transplant evaluation for kidney transplant * HLA TYPING DNA LOW RESOLUTION DR,DQ(Performed 05/14/2020) Performed for Pre-transplant evaluation for kidney transplant * HLA TYPING DNA LOW RESOLUTION A,B,C(Performed 05/14/2020) Performed for Pre-transplant evaluation for kidney transplant * BLOOD TYPE ABO+ RH PANEL(Performed 05/14/2020) Performed for Pre-transplant evaluation for kidney transplant * PROTEIN C ACTIVITY(Performed 05/14/2020) Performed for Pre-transplant evaluation for kidney transplant * RUBELLA ANTIBODY IGG TITER(Performed 05/14/2020) Performed for Pre-transplant evaluation for kidney transplant * PROTEIN S ANTIGEN(Performed 05/14/2020) Performed for Pre-transplant evaluation for kidney transplant * ANTITHROMBIN III ACTIVITY(Performed 05/14/2020) Performed for Pre-transplant evaluation for kidney transplant * CARDIOLIPIN ANTIBODY IGM(Performed 05/14/2020) Performed for Pre-transplant evaluation for kidney transplant * CARDIOLIPIN ANTIBODY IGG(Performed 05/14/2020) Performed for Pre-transplant evaluation for kidney transplant * FACTOR V LEIDEN MUTATION PANEL(Performed 05/14/2020) Performed for Pre-transplant evaluation for kidney transplant * PROTHROMBIN [id number] PANEL(Performed 05/14/2020) Performed for Pre-transplant evaluation for kidney transplant * HOMOCYSTEINE BLOOD QUANTITATIVE(Performed 05/14/2020) Performed for Pre-transplant evaluation for kidney transplant * HIV-1 HIV-2 ANTIGEN/ANTIBODY(Performed 05/14/2020) Performed for Pre-transplant evaluation for kidney transplant * HEPATITIS A ANTIBODY(Performed 05/14/2020) Performed for Pre-transplant evaluation for kidney transplant * PTH INTACT W/O CALCIUM(Performed 05/14/2020) Performed for Pre-transplant evaluation for kidney transplant * TOXOPLASMA GONDII ANTIBODY IGG(Performed 05/14/2020) Performed for Pre-transplant evaluation for kidney transplant * STRONGYLOIDES ANTIBODY IGG(Performed 05/14/2020) Performed for Pre-transplant evaluation for kidney transplant * PROSTATE SPECIFIC ANTIGEN SCREEN(Performed 05/14/2020) Performed for Pre-transplant evaluation for kidney transplant * CANNABINOID SCREEN BLOOD(Performed 05/14/2020) Performed for Pre-transplant evaluation for kidney transplant * IRON BLOOD(Performed 05/14/2020) Performed for Pre-transplant evaluation for kidney transplant * FERRITIN(Performed 05/14/2020) Performed for Pre-transplant evaluation for kidney transplant * TRANSFERRIN(Performed 05/14/2020) Performed for Pre-transplant evaluation for kidney transplant * VITAMIN D 25-HYDROXY(Performed 05/14/2020) Performed for Pre-transplant evaluation for kidney transplant * URIC ACID BLOOD(Performed 05/14/2020) Performed for Pre-transplant evaluation for kidney transplant * VARICELLA ZOSTER ANTIBODY IGG(Performed 05/14/2020) Performed for Pre-transplant evaluation for kidney transplant * MUMPS ANTIBODY IGG(Performed 05/14/2020) Performed for Pre-transplant evaluation for kidney transplant * RUBEOLA ANTIBODY IGG(Performed 05/14/2020) Performed for Pre-transplant evaluation for kidney transplant * OPIATES BLOOD(Performed 05/14/2020) Performed for Pre-transplant evaluation for kidney transplant * COCAINE METABOLITE BLOOD QUANT(Performed 05/14/2020) Performed for Pre-transplant evaluation for kidney transplant * AMPHETAMINE BLOOD CONFIRMATION(Performed 05/14/2020) Performed for Pre-transplant evaluation for kidney transplant * NICOTINE + METABOLITES BLOOD(Performed 05/14/2020) Performed for Pre-transplant evaluation for kidney transplant * ALCOHOL ETHYL BLOOD(Performed 05/14/2020) Performed for Pre-transplant evaluation for kidney transplant * SYPHILIS ANTIBODY CASCADING REFLEX(Performed 05/14/2020) Performed for Pre-transplant evaluation for kidney transplant * HEMOGLOBIN A1C(Performed 05/14/2020) Performed for Pre-transplant evaluation for kidney transplant * MADIHA-MORRIS VIRUS ANTIBODY TO VCA IGG(Performed 05/14/2020) Performed for Pre-transplant evaluation for kidney transplant * CYTOMEGALOVIRUS ANTIBODY IGG BLOOD(Performed 05/14/2020) Performed for Pre-transplant evaluation for kidney transplant * HEPATITIS C ANTIBODY(Performed 05/14/2020) Performed for Pre-transplant evaluation for kidney transplant * HEPATITIS B SURFACE ANTIBODY(Performed 05/14/2020) Performed for Pre-transplant evaluation for kidney transplant * HEPATITIS B CORE ANTIBODY TOTAL(Performed 05/14/2020) Performed for Pre-transplant evaluation for kidney transplant * HEPATITIS B SURFACE ANTIGEN W RFLX CONFIRMATION(Performed 05/14/2020) Performed for Pre-transplant evaluation for kidney transplant * LIPID PROFILE(Performed 05/14/2020) Performed for Pre-transplant evaluation for kidney transplant * PHOSPHORUS BLOOD(Performed 05/14/2020) Performed for Pre-transplant evaluation for kidney transplant * COMPREHENSIVE METABOLIC PANEL(Performed 05/14/2020) Performed for Pre-transplant evaluation for kidney transplant * CBC W AUTO DIFFERENTIAL(Performed 05/14/2020) Performed for Pre-transplant evaluation for kidney transplant * TYPE + SCREEN PANEL(Performed 05/14/2020) Performed for Pre-transplant evaluation for kidney transplant * XR PANOREX(Performed 05/14/2020) Performed for Pre-transplant evaluation for kidney transplant * XR CHEST 2VW(Performed 05/14/2020) Performed for Pre-transplant evaluation for kidney transplant * LAB RESULTS ORDER(Performed 06/11/2019) * CREATININE CLEARANCE URINE TIMED + BLOOD(Performed 04/27/2019) * XR FOOT RIGHT 3VW OR MORE(Performed 04/26/2019) Performed for Gout, unspecified cause, unspecified chronicity, unspecified site, [place], unspecifiedtype (HCC) * XR FOOT LEFT 3VW OR MORE(Performed 04/26/2019) Performed for Gout, unspecified cause, unspecified chronicity, unspecified site, [place], unspecifiedtype (HCC) * XR HAND RIGHT 3VW OR MORE(Performed 04/26/2019) Performed for Gout, unspecified cause, unspecified chronicity, unspecified site, [place], unspecifiedtype (HCC) * XR HAND LEFT 3VW OR MORE(Performed 04/26/2019) Performed for Gout, unspecified cause, unspecified chronicity, unspecified site, [place], unspecifiedtype (HCC) * XR SI JOINTS 3VW OR MORE(Performed 04/26/2019) Performed for Gout, unspecified cause, unspecified chronicity, unspecified site, [place], unspecifiedtype (HCC) * XR LUMBAR SPINE 4VW OR MORE(Performed 04/26/2019) Performed for Gout, unspecified cause, unspecified chronicity, unspecified site, [place], unspecifiedtype (HCC) * CYCLIC [place] PEPTIDE ANTIBODY IGG/IGA (CCP)(Performed 04/26/2019) Performed for Gout, unspecified cause, unspecified chronicity, unspecified site, [place], unspecifiedtype (HCC) * RHEUMATOID FACTOR BLOOD QUANTITATIVE(Performed 04/26/2019) Performed for Gout, unspecified cause, unspecified chronicity, unspecified site, [place], unspecifiedtype (HCC) * SS-B (SJOGREN'S) ANTIBODY(Performed 04/26/2019) Performed for Gout, unspecified cause, unspecified chronicity, unspecified site, [place], unspecifiedtype (HCC) * SS-A (SJOGREN'S) ANTIBODY(Performed 04/26/2019) Performed for Gout, unspecified cause, unspecified chronicity, unspecified site, [place], unspecifiedtype (HCC) * SHAWN BLOOD SCREEN W/REFLEX TITER(Performed 04/26/2019) Performed for Gout, unspecified cause, unspecified chronicity, unspecified site, [place], unspecifiedtype (HCC) * VITAMIN D 25-HYDROXY(Performed 04/26/2019) Performed for Gout, unspecified cause, unspecified chronicity, unspecified site, [place], unspecifiedtype (HCC) * URINALYSIS W/MICROSCOPIC NO CULTURE(Performed 04/26/2019) Performed for Gout, unspecified cause, unspecified chronicity, unspecified site, [place], unspecifiedtype (HCC) * ERYTHROCYTE SEDIMENTATION RATE(Performed 04/26/2019) Performed for Gout, unspecified cause, unspecified chronicity, unspecified site, [place], unspecifiedtype (HCC) * C-REACTIVE PROTEIN(Performed 04/26/2019) Performed for Gout, unspecified cause, unspecified chronicity, unspecified site, [place], unspecifiedtype (HCC) * COMPREHENSIVE METABOLIC PANEL(Performed 04/26/2019) Performed for Gout, unspecified cause, unspecified chronicity, unspecified site, [place], unspecifiedtype (HCC) * CBC W AUTO DIFFERENTIAL(Performed 04/26/2019) Performed for Gout, unspecified cause, unspecified chronicity, unspecified site, [place], unspecifiedtype (HCC) * CK BLOOD(Performed 04/26/2019) Performed for Gout, unspecified cause, unspecified chronicity, unspecified site, [place], unspecifiedtype (HCC) * LDH BLOOD(Performed 04/26/2019) Performed for Gout, unspecified cause, unspecified chronicity, unspecified site, [place], unspecifiedtype (HCC) * ALDOLASE(Performed 04/26/2019) Performed for Gout, unspecified cause, unspecified chronicity, unspecified site, [place], unspecifiedtype ([facility]) * URIC ACID BLOOD(Performed 04/26/2019) Performed for Gout, unspecified cause, unspecified chronicity, unspecified site, [place], unspecifiedtype ([facility]) * CARDIAC PROCEDURE ORDER(Performed 11/27/2018) * CARDIAC RHYTHM STRIP ORDER(Performed 11/26/2018) * GLUCOSE - POINT OF CARE(Performed 11/23/2018) * GLUCOSE - POINT OF CARE(Performed 11/23/2018) * GLUCOSE - POINT OF CARE(Performed 11/23/2018) * GLUCOSE - POINT OF CARE(Performed 11/23/2018) * GLUCOSE - POINT OF CARE(Performed 11/23/2018) * HEMOGLOBIN A1C(Performed 11/23/2018) Performed for Controlled type 2 diabetes mellitus without complication, with long-term current use of insulin ([facility]) * BASIC METABOLIC PANEL (CALCIUM TOTAL)(Performed 11/23/2018) Performed for 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[place] heart with stable angina pectoris, unspecified vessel or lesion type ([facility]) * GLUCOSE - POINT OF CARE(Performed 11/22/2018) * GLUCOSE - POINT OF CARE(Performed 11/22/2018) * GLUCOSE - POINT OF CARE(Performed 11/22/2018) * GLUCOSE - POINT OF CARE(Performed 11/22/2018) * CARDIAC CATH(Performed 11/22/2018) * GLUCOSE - POINT OF CARE(Performed 11/22/2018) * BASIC METABOLIC PANEL (CALCIUM TOTAL)(Performed 11/22/2018) Performed for 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[place] heart with stable angina pectoris, unspecified vessel or lesion type ([facility]) * CARDIAC CATH CONSULT(Performed 11/22/2018) * XR CERVICAL SPINE 2 OR 3VW(Performed 03/25/2015) Performed for Arthropathy, unspecified, site unspecified * XR LUMBAR SPINE 2 OR 3VW(Performed 03/25/2015) Performed for Arthropathy, unspecified, site unspecified * XR SI JOINTS 2VW OR LESS(Performed 03/25/2015) Performed for Arthropathy, unspecified, site unspecified * XR FOOT BILAT 2VW(Performed 03/25/2015) Performed for Arthropathy, unspecified, site unspecified * XR HAND BILAT 2VW(Performed 03/25/2015) Performed for Arthropathy, unspecified, site unspecified Results * CARDIAC EKG ORDER (05/18/2020 10:28 AM CDT) Narrative 05/18/2020 10:28 AM CDT Ordered by an unspecified provider. Scanned Document CARDIAC SERVICES ORD ERABLES * VAS ARTERIAL ANKLE ARM INDEX (05/14/2020 11:57 AM CDT) Anatomical Region Laterality Modality Ankle / Foot, Upper Extremity In travascular Ultrasound 05/14/2020 11:1 9 AM CDT Narrative Procedure Note Carrington Purvis MD - 05/18/2020 Glenny aMrtin MD VASCULAR LAB OR DERABLES * VAS BILATERAL VENOUS DUPLEX LE (05/14/2020 11:57 AM CDT) Anatomical Region Laterality Modality Lower Extremity Intravascular Ul trasound 05/14/2020 11:0 0 AM CDT Narrative Procedure Note Carrington Purvis MD - 05/18/2020 Glenny Martin MD VASCULAR LAB OR DERABLES * CT ABDOMEN AND PELVIS NON IV CONTRAST (05/14/2020 10:35 AM CDT) Anatomical Region Laterality Modality Abdomen, Pelvis Computed Tomogra phy 05/14/2020 10:4 7 AM CDT Impressions 05/14/2020 5:03 PM CDT IMPRESSION: 1. Findings of chronic kidney disease with mild atherosclerotic calcifications of the abdominal aorta, common iliac arteries, and external iliac arteries. Moderate to severe atherosclerotic calcifications of the internal iliac arteries. 2. Dense coronary artery calcifications. Aortic annulus calcifications. Dictated by Ash Moreira MD (president & ceo). I, Dr. HANNAH SPENCE have personally reviewed and interpreted this examination/study. This report was electronically signed by HANNAH SPENCE ??on 05/14/2020 5:03 PM . Narrative 05/14/2020 5:03 PM CDT EXAMINATION: Computed tomography (CT) of the abdomen and pelvis without contrast HISTORY: Pre-transplant evaluation for kidney transplant TECHNIQUE: CT of the abdomen and pelvis was performed without contrast according to standard protocol. FINDINGS: No prior study is available for comparison at the time of this dictation. There are minimal vascular calcifications of the abdominal aorta. There are mild atherosclerotic calcifications of the bilateral renal arteries without significant stenosis. There are mild atherosclerotic calcifications of both common iliac arteries and minimal atherosclerotic calcifications of the external iliac arteries. Moderate to severe atherosclerotic calcifications of the internal iliac arteries. There are dense coronary arteries calcifications. Aortic annulus is calcified. The lung bases are clear. Heart size is normal. The liver appears normal. Multiple gallstones are seen in the gallbladder. The intrahepatic and extrahepatic bile ducts are nondilated. The spleen, pancreas, and adrenal glands appear normal. The kidneys are mildly atrophic. Renal vasculature anatomy is conventional. No renal, ureteral, or bladder calculi are visible. There is no evidence of hydronephrosis or hydroureter. A peritoneal dialysis catheter is seen in the left lower quadrant. A small amount of ascites is seen.The distal esophagus and stomach appear normal. The small bowel and colon are normal in caliber without evidence of wall thickening or obstruction. There is no abdominal lymphadenopathy. The urinary bladder is nondistended. The prostate appears normal. ??There is no pelvic lymphadenopathy. Bone windows demonstrate no suspicious lytic or blastic lesions. The visible osseous structures are intact. Degenerative changes are seen in the lower lumbar spine. There is fat stranding of the umbilicus and the lower back. Procedure Note Hannah Spence MD - 05/14/2020 EXAMINATION: Computed tomography (CT) of the abdomen and pelvis without contrast HISTORY: Pre-transplant evaluation for kidney transplant TECHNIQUE: CT of the abdomen and pelvis was performed without contrast according to standard protocol. FINDINGS: No prior study is available for comparison at the time of this dictation. There are minimal vascular calcifications of the abdominal aorta. There are mild atherosclerotic calcifications of the bilateral renal arteries without significant stenosis. There are mild atherosclerotic calcifications of both common iliac arteries and minimal atherosclerotic calcifications of the external iliac arteries. Moderate to severe atherosclerotic calcifications of the internal iliac arteries. There are dense coronary arteries calcifications. Aortic annulus is calcified. The lung bases are clear. Heart size is normal. The liver appears normal. Multiple gallstones are seen in thegallbladder. The intrahepatic and extrahepatic bile ducts are nondilated. The spleen, pancreas, and adrenal glands appear normal. The kidneys are mildly atrophic. Renal vasculature anatomy is conventional. No renal, ureteral, or bladder calculi are visible. There is no evidence of hydronephrosisor hydroureter. A peritoneal dialysis catheter is seen in the left lower quadrant. Asmall amount of ascites is seen.The distal esophagus and stomach appearnormal. The small bowel and colon are normal in caliber without evidence of wall thickening or obstruction. There is no abdominal lymphadenopathy. The urinary bladder is nondistended. The prostate appears normal. There is no pelvic lymphadenopathy. Bone windows demonstrate no suspicious lytic or blastic lesions. The visible osseous structures are intact. Degenerative changes are seen in the lower lumbar spine. There is fat stranding of the umbilicus and the lower back. IMPRESSION: 1. Findings of chronic kidney disease with mild atherosclerotic calcifications of the abdominal aorta, common iliac arteries, andexternal iliac arteries. Moderate to severe atherosclerotic calcifications of the internal iliac arteries. 2. Dense coronary artery calcifications. Aortic annulus calcifications. Dictated by Ash Moreira MD (president & ceo). I, Dr. HANNAH SPENCE have personally reviewed and interpreted this examination/study. This report was electronically signed by HANNAH SPENCE on 05/14/20205:03 PM . Glenny Martin MD CT ORDERABLES * ECHO STRESS TEST W DOBUTAMINE (05/14/2020 10:22 AM CDT) Anatomical Region Laterality Modality Chest Echo 05/14/2020 7:50 AM CDT Narrative Procedure Note Zain Xie MD - 05/14/2020 Glenny Martin MD ECHOCARDIOGRAPH Y RADIANT * HLA TYPING DNA LOW RESOLUTION DR,DQ (05/14/2020 10:18 AM CDT) DR DQ Low Resolution DRB1-1 04 05/29/2020 7:59 AM CDT [facility] ([facility]) DR DQ Low Resolution DRB1-2 11 05/29/2020 7:59 AM CDT [facility] ([facility]) DR DQ Low Resolution DQB1-1 03 (DQ7) 05/29/2020 7:59 AM CDT [facility] ([facility]) DR DQ Low Resolution DQB1-2 03 (DQ8) 05/29/2020 7:59 AM CDT [facility] ([facility]) DR DQ Low Resolution DRB3-1 02 05/29/2020 7:59 AM CDT [facility] ([facility]) DR DQ Low Resolution DRB3-2 Negative 05/29/2020 7:59 AM CDT [facility] ([facility]) DR DQ Low Resolution DRB4-1 01 05/29/2020 7:59 AM CDT [facility] ([facility]) DR DQ Low Resolution DRB4-2 Negative 05/29/2020 7:59 AM CDT [facility] ([facility]) DR DQ Low Resolution DRB5-1 Negative 05/29/2020 7:59 AM CDT [facility] ([facility]) DR DQ Low Resolution DRB5-2 Negative 05/29/2020 7:59 AM CDT [facility] ([facility]) DR DQ Low Resolution Methodology SSOP 05/29/2020 7:59 AM CDT [facility] ([facility]) Comment DR DQ Low Resolution - 05/29/2020 7:59 AM CDT [facility] ([facility]) DR DQ Low Resolution test date 05/28/2020 05/29/2020 7:59 AM CDT [facility] ([facility]) Comment: This test was developed and its performance characteristics determined by the [facility]. ??It has not been cleared or approved by the U.S. Food and Drug Administration. ??The FDA has determined that such clearance or approval is not necessary. ??This test is used for clinical purposes. ??It should not be regarded as investigational or for research. This laboratory is certified under the Clinical Laboratory Improvement Amendments of 1988 (CLIA-88) as qualified to perform high complexity clinical laboratory testing. ??CLIA ID# [id number] Performed at: ??[facility], [address] @ [facility], [place] ??[id number] Doughnut Fryer: Jarrod Chin MD, Blood BLOOD SPECIMEN / Unknown Lab Venipuncture / Unknown 05/14/2020 10:18 AM CDT 05/14/2020 10:52 AM CDT Glenny Martin MD LAB - BLOOD BAN K ORDERABLES [facility] ([facility]) [address] [place] [address], [facility] * HLA TYPING DNA LOW RESOLUTION A,B,C (05/14/2020 10:18 AM CDT) ABC DNA A1 03 05/29/2020 7:59 AM CDT [facility] ([facility]) ABC DNA A2 29 05/29/2020 7:59 AM CDT [facility] ([facility]) ABC DNA B1 07 05/29/2020 7:59 AM CDT [facility] ([facility]) ABC DNA B2 44 05/29/2020 7:59 AM CDT [facility] ([facility]) ABC DNA BW1 6 05/29/2020 7:59 AM CDT [facility] ([facility]) ABC DNA BW2 4 05/29/2020 7:59 AM CDT [facility] ([facility]) ABC DNA C1 07 05/29/2020 7:59 AM CDT [facility] ([facility]) ABC DNA C2 - 05/29/2020 7:59 AM CDT [facility] ([facility]) ABC DNA Methodology SSOP 05/29 7:59 AM CDT [facility] ([facility]) Comment ABC DNA - 0 7:59 AM CDT [facility] ([facility]) ABC DNA Test Date 0 05/29/2020 7:59 AM CDT [facility] ([facility]) Comment: This test was developed and its performance characteristics determined by the [facility]. ??It has not been cleared or approved by the U.S. Food and Drug Administration. ??The FDA has determined that such clearance or approval is not necessary. ??This test is used for clinical purposes. ??It should not be regarded as investigational or for research. This laboratory is certified under the Clinical Laboratory Improvement Amendments of 1988 (CLIA-88) as qualified to perform high complexity clinical laboratory testing. ??CLIA ID# [id number] Performed at: ??[facility], [address] @ [place], [place] ??[address] Doughnut Fryer: Jarrod Chin MD, Blood BLOOD SPECIMEN / Unknown Lab Venipuncture / Unknown 05/14/2020 10:18 AM CDT 05/14/2020 10:52 AM CDT Glenny Martin MD LAB - BLOOD BAN K ORDERABLES Performing Organization Address City/[facility]/ZIP Co de Phone Number [facility] ([facility]) [address] [place] [address], [place] * HLA ANTIBODY SCREEN LUM CLASS 2 ID (05/14/2020 10:18 AM CDT) Pathologist [facility] % PRA 90 05/29/2020 7:59 AM CDT [facility] ([facility]) Class 2 LUM Specificity - 05/29/2020 7:59 AM CDT [facility] ([facility]) Class 2 LUM Test Date 0 05/29/2020 7:59 AM CDT [facility] ([facility]) Comment: This test was developed and its performance characteristics determined by the [facility]. ??It has not been cleared or approved by the U.S. Food and Drug Administration. ??The FDA has determined that such clearance or approval is not necessary. ??This test is used for clinical purposes. ??It should not be regarded as investigational or for research. This laboratory is certified under the Clinical Laboratory Improvement Amendments of 1988 (CLIA-88) as qualified to perform high complexity clinical laboratory testing. ??CLIA ID# [id number] Performed at: ??[facility], [address] @ [place], [place] ??[address] Doughnut Fryer: Jarrod Chin MD, Blood BLOOD SPECIMEN / Unknown Lab Venipuncture / Unknown 05/14/2020 10:18 AM CDT 05/14/2020 10:52 AM CDT Glenny Martin MD LAB - BLOOD BAN K ORDERABLES [facility] ([facility]) [address] [place] [address], [place] * HLA ANTIBODY SCREEN LUM CLASS 1 ID (05/14/2020 10:18 AM CDT) % PRA 4 05/29/2020 7:59 AM CDT [facility] ([facility]) Class 1 LUM Specificity - 05/29/2020 7:59 AM CDT [facility] ([facility]) Class 1 LUM Test Date 0 05/29/2020 7:59 AM CDT [facility] ([facility]) Comment: This test was developed and its performance characteristics determined by the [facility]. ??It has not been cleared or approved by the U.S. Food and Drug Administration. ??The FDA has determined that such clearance or approval is not necessary. ??This test is used for clinical purposes. ??It should not be regarded as investigational or for research. This laboratory is certified under the Clinical Laboratory Improvement Amendments of 1988 (CLIA-88) as qualified to perform high complexity clinical laboratory testing. ??CLIA ID# [id number] Performed at: ??[facility], [address] @ [place], [place] ??[address] Doughnut Fryer: Jarrod Chin MD, Blood BLOOD SPECIMEN / Unknown Lab Venipuncture / Unknown 05/14/2020 10:18 AM CDT 05/14/2020 10:52 AM CDT Glenny Martin MD LAB - BLOOD BAN K ORDERABLES Performing Organization Address City/[facility]/ZIP Co de Phone Number [facility] ([facility]) [address] [place] [address], [place] * HIV-1 HIV-2 ANTIGEN/ANTIBODY (05/14/2020 10:18 AM CDT) HIV Antigen/Antibod y 1 & 2 Non-reacti ve Non-react bianca 05/14/2020 11:49 AM CDT [facility] Comment:Neither HIV-1 p24 An tigen nor HIV-1/HIV-2 Antibodies are detected. Blood BLOOD SPECIMEN / Unknown Lab Venipuncture / Unknown 05/14/2020 10:18 AM CDT 05/14/2020 10:57 AM CDT Glenny Martin MD LAB - HEMATOLOG Y ORDERABLES Performing Organization Address [facility] Co de Phone Number [address] [address], [facility] [phone] * CANNABINOID SCREEN BLOOD (05/14/2020 10:18 AM CDT) Marijuana Metabolites Negative 05/17/2020 12:06 AM CDT [facility] ([facility]) Comment:REFERENCE RANGE: thr shold: 5 ng/mL Specimen Type Comment 05/17/2020 12:06 AM CDT [facility] ([facility]) Comment: WHOLE BLOOD This specimen was screened by immunoassay at the thresholds listed above. Presumptive positive results have not been confirmed by an alternate method; results are intended for clinical medical purposes. Please contact the laboratory if confirmatory testing is desired. This test was developed and its performance characteristics determined by [employer]. It has not been cleared or approved by the Food and Drug Administration. Blood BLOOD SPECIMEN / Unknown Lab Venipuncture / Unknown 05/14/2020 10:18 AM CDT 05/14/2020 10:53 AM CDT Narrative [facility] ([facility]) - 05/17/2020 12:06 AM CDT Performed at: ??01 - [employer] [address] [place] [address] ??[id number] Doughnut Fryer: Radha Callahan [facility], Phone: ??[phone] Glenny Martin MD LAB - CHEMISTRY ORDERABLES Performing Organization Address [facility]/ZIP Co de Phone Number [facility] ([facility]) [address] [place] [address] * COCAINE METABOLITE QUANT (05/14/2020 10:18 AM CDT) Cocaine and Metabolite Blood <20 ng/mL 05/17/2020 11:07 PM CDT [employer] ([facility]) Comment: INTERPRETIVE INFORMATION: Cocaine Metabolite, ?Serum or Plasma, ?Quantitative Methodology: Quantitative Gas Chromatography- Mass Spectrometry Positive cutoff: 20 ng/mL ?? For medical purposes only; not valid for forensic use. The concentration value must be greater than or equal to the cutoff to be reported as positive. Interpretive questions should be directed to the laboratory. Test developed and characteristics determined by [employer]. See Compliance Statement B: [employer]/CS Performed By: [employer] [address] [place] [id number] Senior Housekeeper: Valerie Mast MD Blood BLOOD SPECIMEN / Unknown Lab Venipuncture / Unknown 05/14/2020 10:18 AM CDT 05/14/2020 10:55 AM CDT Glenny Martin MD LAB - CHEMISTRY ORDERABLES Performing Organization Address City/[facility] Co de Phone Number [employer] ([facility]) [address] [place] [address] * SYPHILIS ANTIBODY CASCADING REFLEX (05/14/2020 10:18 AM CDT) Treponema pallidum Antibody Non-react bianca Non-react bianca 05/14/2020 11:47 AM CDT [facility] Comment: No Laboratory evidence of syphilis infection. ?? Note: ??Circulating antibodies may be low or undetectable in early infection. ??If recent exposure is suspected, re-draw sample in 2-4 weeks and repeat testing. Blood BLOOD SPECIMEN / Unknown Lab Venipuncture / Unknown 05/14/2020 10:18 AM CDT 05/14/2020 10:55 AM CDT Glenny Martin MD LAB - SEROLOGY ORDERABLES Performing Organization Address City/[facility]/ZIP Co de Phone Number [address] [address], [place] [phone] * AMPHETAMINE BLOOD CONFIRMATION (05/14/2020 10:18 AM CDT) Amphetamines Confirmation <20 ng/mL 05/20/2020 12:29 PM CDT [facility] [employer] ([facility]) Comment: INTERPRETIVE INFORMATION: Amphetamines, Serum or ?Plasma, Quantitative Methodology: Quantitative Liquid Chromatography-Tandem Mass Spectrometry Positive cutoff: 20 ng/mL For medical purposes only; not valid for forensic use. The absence of expected drug(s) and/or drug metabolite(s) may indicate non-compliance, inappropriate timing of specimen collection relative to drug administration, poor drug absorption, or limitations of testing. ??The concentration value must be greater than or equal to the cutoff to be reported as positive. Interpretive questions should be directed to the laboratory. Test developed and characteristics determined by [employer]. See Compliance Statement B: [employer]/CS Methamphetamine Confirmation <20 ng/mL 05/20/2020 12:29 PM CDT [facility] ([facility]) MDA Confirmation <20 ng/mL 05/20/20 20 12:29 PM CDT [facility]) MDMA Confirm <20 ng/mL 05/20/2020 12:29 PM CDT [facility] ([facility]) MDEA Confirmation <20 ng/mL 020 12:29 PM CDT [facility]) Comment: Performed By: [employer] [address] [place] [address] Senior Housekeeper: Valerie Mast MD Blood BLOOD SPECIMEN / Unknown Lab Venipuncture / Unknown 05/14/2020 10:18 AM CDT 05/14/2020 10:57 AM CDT Glenny Martin MD LAB - CHEMISTRY ORDERABLES [facility] [employer] ([facility]) [address] [place] [address], [facility] * (ABNORMAL) PTH INTACT ([facility]) (05/14/2020 10:18 AM CDT) PTH Intact 653.3(H) 8.0 - 77.0 pg/mL 05/14/2020 11:34 AM CDT [facility] Blood BLOOD SPECIMEN / Unknown Lab Venipuncture / Unknown 05/14/2020 10:18 AM CDT 05/14/2020 10:55 AM CDT Glenny Martin MD LAB - CHEMISTRY ORDERABLES Performing Organization Address [facility]/ZIP Co de Phone Number [place] [phone] [place] [address], [facility] [phone] * OPIATES BLOOD (05/14/2020 10:18 AM CDT) [facility] Opiates Screen Negative 05/17/2020 12:06 AM CDT [facility] ([facility]) Comment:REFERENCE RANGE: thr shold: 10 ng/mL Oxycodone Screen Negative 05/17/20 12:06 AM CDT [facility] ([facility]) Comment:REFERENCE RANGE: thr shold: 10 ng/mL Specimen Type Comment 05/17/2020 12:06 AM CDT [facility] ([facility]) Comment: WHOLE BLOOD This specimen was screened by immunoassay at the thresholds listed above. Presumptive positive results have not been confirmed by an alternate method; results are intended for clinical medical purposes. Please contact the laboratory if confirmatory testing is desired. This test was developed and its performance characteristics determined by [employer]. It has not been cleared or approved by the Food and Drug Administration. Blood BLOOD SPECIMEN / Unknown Lab Venipuncture / Unknown 05/14/2020 10:18 AM CDT 05/14/2020 10:53 AM CDT Narrative [facility] ([facility]) - 05/17/2020 12:06 AM CDT Performed at: ??01 - [employer] [address] [place] [address] ??[id number] Doughnut Fryer: Radha Callahan [facility], Phone: ??[phone] Glenny Martin MD LAB - CHEMISTRY ORDERABLES [facility] ([facility]) [address] [place] [address], [facility] * (ABNORMAL) URIC ACID BLOOD (05/14/2020 10:18 AM CDT) Only the most recent of2 resultswithin the time period is included. Uric Acid 8.4(H) 2.6 - 7.2 mg/dL 05/14/2020 11:41 AM CDT [facility] Blood BLOOD SPECIMEN / Unknown Lab Venipuncture / Unknown 05/14/2020 10:18 AM CDT 05/14/2020 10:55 AM CDT Glenny Martin MD LAB - CHEMISTRY ORDERABLES [facility] [address] [place] [address], [facility] [phone] * PROTHROMBIN [id number] PANEL (05/14/2020 10:18 AM CDT) Prothrombin G17044P Negative 05/21/2020 8:19 PM CDT [facility] ([facility]) Comment: Indication for testing: Assess genetic risk for thrombosis. NEGATIVE: The Factor II, prothrombin K28063I mutation, was not detected. ??Other causes of elevated prothrombin levels and hereditary forms of venous thrombosis have not been excluded. Recommendations: ??If clinically indicated, testing for other inherited or acquired thrombophilic disorders is recommended including DNA testing for the factor V Leiden mutation, measurement of total plasma homocysteine concentration, serological assays for anticardiolipin antibodies, multiple phospholipid-dependent coagulation assays for lupus inhibitor, protein C activity, protein S activity or free protein S antigen, and antithrombin activity. This result has been reviewed and approved by Ja Cui, Ph.D. 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 The expression of Factor II thrombophilia is impacted by coexisting genetic thrombophilic disorders, acquired thrombophilic disorders (eg, malignancy, hyperhomocysteinemia, high factor VIII levels), and circumstances including: , oral contraceptive use, hormone replacement therapy, selective estrogen receptor modulators, travel, central venous catheters, surgery, and organ transplantation. INCIDENCE: Approximately 2 percent of Caucasians and 0.3 percent of Americans are heterozygous; homozygosity occurs in 1 in 10,000 individuals. INHERITANCE: Incomplete autosomal dominant. PENETRANCE: The risk of thrombosis is increased 2-4 fold for heterozygotes and further increased for homozygotes. CAUSE: Homozygosity or heterozygosity for F2 c.*97G>A (S98211P). PATHOGENIC VARIANT TESTED: F2 c.*97G>A (R61578Z). CLINICAL SENSITIVITY FOR VENOUS THROMBOSIS: Approximately 10 percent. METHODOLOGY: Polymerase chain reaction and fluorescence monitoring. ANALYTICAL SENSITIVITY AND SPECIFICITY: 99 percent. LIMITATIONS: Diagnostic errors can occur due to rare sequence variations. F2 gene variants, other than c.*97G>A (L69024I), will not be detected. This test was developed and its performance characteristics determined by [employer]. It has not been cleared or approved by the US Food and Drug Administration. This test was performed in a CLIA certified laboratory and is intended for clinical purposes. Counseling and informed consent are recommended for genetic testing. Consent forms are available online. Performed by [employer], [address] [place] [address] [email or web address], Valerie Mast MD, Lab. Director Source PT [id number] PCR Whole Blood 05/21/2020 8:19 PM CDT [employer] [facility]) Blood BLOOD SPECIMEN / Unknown Lab Venipuncture / Unknown 05/14/2020 10:18 AM CDT 05/14/2020 10:48 AM CDT Sourav Moscoso MD LAB - COAGULATION OR DERABLES [employer] [facility]) [address] * (ABNORMAL) PROTEIN S ANTIGEN (05/14/2020 10:18 AM CDT) [facility] Protein S Antigen Total 177(H) 60 - 150 % 05/16/2020 2:07 AM CDT [facility] ([facility]) Comment: This test was developed and its performance characteristics determined [facility]. It has not been cleared or approved by the Food and Drug Administration. Total Protein S Antigen is an acute phase reactant protein and can be elevated in inflammatory states. Protein S Free 179(H) 57 - 157 % 05/16/2020 2:07 AM CDT [facility] ([facility]) Comment: This test was developed and its performance characteristics determined by [facility]. It has not been cleared or approved by the Food and Drug Administration. Blood BLOOD SPECIMEN / Unknown Lab Venipuncture / Unknown 05/14/2020 10:18 AM CDT 05/14/2020 10:48 AM CDT [facility]ative [facility] ([facility]) - 05/16/2020 2:07 AM CDT Performed at: ??01 - [facility] ??[id number] Doughnut Fryer: Con Grimaldo MD, Phone: ??[phone] Sourav Moscoso MD LAB - COAGULATION OR DERABLES [facility]) [address] [place] [address] * STRONGYLOIDES ANTIBODY IGG (05/14/2020 10:18 AM CDT) Strongyloides Antibody IgG 0.2 <=0.9 IV 05/17/2020 10:58 PM CDT [facility] [employer] ([facility]) Comment: INTERPRETIVE INFORMATION: Strongyloides Ab, IgG by ABRAHAM ??0.9 IV or less....... Negative - No significant ?level of Strongyloides IgG ?antibody detected. ??1.0 IV................Equivocal - The Strongyloides IgG ?antibody result is borderline and ?therefore inconclusive. Recommend ?retesting the patient in 2-4 weeks, ?if clinically indicated. ??1.1 IV or greater ... Positive - IgG antibodies to ?Strongyloides detected, which ?may suggest current or past ?infection. False-positive results may occur with prior exposure to other helminth infections. Testing low-prevalence populations may also result in false-positive results. Performed By: [employer] [address] [place] [address] Senior Housekeeper: Valerie Mast MD Blood BLOOD SPECIMEN / Unknown Lab Venipuncture / Unknown 05/14/2020 10:18 AM CDT 05/14/2020 10:55 AM CDT Glenny Martin MD LAB - SEROLOGY ORDERABLES [facility]) [address] [place] [address], [facility] * FACTOR V LEIDEN MUTATION PANEL (05/14/2020 10:18 AM CDT) [facility] Factor V Leiden Source Whole Blood 05/21/2020 4:02 PM CDT [facility] ([facility]) Factor V Leiden PCR/FRET Negative 05/21/2020 4:02 PM CDT [facility] ([facility]) Comment: Indication for testing: Assess genetic risk for thrombosis. NEGATIVE: The factor V Leiden variant, c.1601G>A; p.[id number], was not detected. This does not exclude a genetic cause for thrombophilia. If this individual has had a previous venous thromboembolism, this negative result is unlikely to significantly reduce the risk for recurrence; thus, future clinical management to reduce recurrence should not be altered. This result has been reviewed and approved by Ja Cui, Ph.D. BACKGROUND INFORMATION: Factor V Leiden (F5) R506Q Mutation CHARACTERISTICS: Venous thromboembolism (VTE) is multifactorial caused by a combination of genetic and environmental factors. The Factor V Leiden (FVL) variant is the most common cause of inherited VTEs, accounting for over 90 percent of activated protein C (APC) resistance. Because the FVL variant eliminates the APC cleavage site, factor V is inactivated slower, thus persisting longer in blood circulation, leading to more thrombin production. Other genetic risk factors for VTE include, male sex and variants in antithrombin, protein C, protein S, or factor XIII. Non-genetic risk factors include, age, smoking, prolonged immobilization, malignant neoplasms, surgery, , oral contraceptives, estrogen replacement therapy, tamoxifen and raloxifene therapy. INCIDENCE OF FACTOR V LEIDEN VARIANT: Approximately 5 percent of Caucasians, 2 percent of Hispanics, 1 percent of Americans and 0.5 percent of Asians are heterozygous; homozygosity occurs in 1 in 1500 Caucasians. INHERITANCE: Semi-dominant; both heterozygotes and homozygotes are at increased risk for VTE. PENETRANCE: Lifetime risk of VTE is 10 percent for heterozygotes and 80 percent of homozygotes. CAUSE: The pathogenic gain of function in the F5 gene variant c.1601G>A (p.[id number]). Legacy nomenclature: R506Q (1691G>A) CLINICAL SENSITIVITY: 20-50 percent of individuals with an isolated VTE have the FVL variant. METHODOLOGY: Polymerase chain reaction and fluorescence monitoring. ANALYTICAL SENSITIVITY AND SPECIFICITY: 99 percent. LIMITATIONS: Diagnostic errors can occur due to rare sequence variations. F5 gene mutations, other than p.[id number], will not be detected. This test was developed and its performance characteristics determined by [employer]. It has not been cleared or approved by the US Food and Drug Administration. This test was performed in a CLIA certified laboratory and is intended for clinical purposes. Counseling and informed consent are recommended for genetic testing. Consent forms are available online. Performed by [employer], [address] [place] [id number] [email or web address], Valerie Mast MD, Lab. Director Blood BLOOD SPECIMEN / Unknown Lab Venipuncture / Unknown 05/14/2020 10:18 AM CDT 05/14/2020 10:49 AM CDT Sourav Moscoso MD LAB - COAGULATION OR DERABLES [employer] ([facility]) [address] * CARDIOLIPIN ANTIBODY IGM (05/14/2020 10:18 AM CDT) Cardiolipin Antibody IgM 0 0 - 12 MPL 05/17/2020 12:33 AM CDT [employer] ([facility]) Comment: INTERPRETIVE INFORMATION: Anti-Cardiolipin IgM 0-12 MPL: Negative 13-19 MPL: Indeterminate 20-80 MPL: Low to Moderately Positive 81 MPL or above: High Positive The persistent presence of IgG and/or IgM cardiolipin (CL) antibodies in moderate or high levels (greater than 40 GPL and/or greater than 40 MPL units or greater than 99th percentile) is a laboratory criterion for the diagnosis of antiphospholipid syndrome (APS). Persistence is defined as moderate or high levels of IgG and/or IgM CL antibodies detected ??in two or more specimens drawn at least 12 weeks apart (J Throm Haemost. 2006;4:295-306). Lower positive levels of IgG and/or IgM CL antibodies (above cutoff but less than 40 GPL and/or less than 40 MPL units) may occur in patients with the clinical symptoms of APS; therefore, the actual significance of these levels is undefined. Results should not be used alone for diagnosis and must be interpreted in light of APS-specific clinical manifestations and/or other criteria phospholipid antibody tests. Performed By: [employer] [address] [place] [address] Senior Housekeeper: Valerie Mast MD Blood BLOOD SPECIMEN / Unknown Lab Venipuncture / Unknown 05/14/2020 10:18 AM CDT 05/14/2020 10:57 AM CDT Sourav Moscoso MD LAB - SEROLOGY ORDER ROVERTO [facility] [employer] ([facility]) [address] * CARDIOLIPIN ANTIBODY IGG (05/14/2020 10:18 AM CDT) Cardiolipin Antibody IgG 2 0 - 14 GPL 05/17/2020 12:32 AM CDT [employer] ([facility]) Comment: INTERPRETIVE INFORMATION: Anti-Cardiolipin IgG Ab 0-14 GPL: Negative 15-19 GPL: Indeterminate 20-80 GPL: Low to Moderately Positive 81 GPL or above: High Positive The persistent presence of IgG and/or IgM cardiolipin (CL) antibodies in moderate or high levels (greater than 40 GPL and/or greater ??than 40 MPL units or greater than 99th percentile) is a laboratory criterion for the diagnosis of antiphospholipid syndrome (APS). Persistence is defined as moderate or high levels of IgG and/or IgM CL antibodies detected in two or more specimens drawn at least 12 weeks apart (J Throm Haemost. 2006;4:295-306). Lower positive levels of IgG and/or IgM CL antibodies (above cutoff but less than 40 GPL and/or less than 40 MPL units) may occur in patients with the clinical symptoms of APS; therefore, the actual significance of these levels is undefined. Results should not be used alone for diagnosis and must be interpreted in light of APS-specific clinical manifestations and/or other criteria phospholipid antibody tests. Performed By: [facility] [address] [place] [address] Senior Housekeeper: Valerie Mast MD Blood BLOOD SPECIMEN / Unknown Lab Venipuncture / Unknown 05/14/2020 10:18 AM CDT 05/14/2020 10:58 AM CDT Sourav Moscoso MD LAB - SEROLOGY ORDER ROVERTO [employer] [facility]) [address] [place] [address], [facility] * CYTOMEGALOVIRUS ANTIBODY IGG BLOOD (05/14/2020 10:18 AM CDT) [facility] Cytomegalovirus Antibody IgG >10.00 U/mL 05/16/2020 6:28 PM CDT [employer] ([facility]) Comment: INTERPRETIVE INFORMATION: Cytomegalovirus Antibody, IgG ??0.59 U/mL or less......... Not Detected ??0.6 - 0.69 U/mL........... Indeterminate-Repeat testing in ? 10-14 days may be helpful. ??0.70 U/mL or greater...... Detected In immunocompromised patients, CMV serology (IgG or IgM antibody titers) may not be reliable and may be misleading in the diagnosis of acute or reactivation CMV disease. The preferred method for diagnosis is culture of virus and/or demonstration of viral antigen in peripheral white cells (buffy coat), bronchoalveolar lavage (BAL) cells, or tissue biopsies. This test should not be used for blood donor screening, associated re-entry protocols, or for screening Human Cell, Tissues and Cellular and Tissue-Based Products (HCT/P). The best evidence for current infection is a significant change on two appropriately timed specimens, where both tests are done in the same laboratory at the same time. Performed By: [facility] [address] [place] [address] Senior Housekeeper: Valerie Mast MD Blood BLOOD SPECIMEN / Unknown Lab Venipuncture / Unknown 05/14/2020 10:18 AM CDT 05/14/2020 10:55 AM CDT Glenny Martin MD LAB - CHEMISTRY ORDERABLES [employer] ([facility]) [address] [place] [address], [facility] * RUBELLA ANTIBODY IGG TITER (05/14/2020 10:18 AM CDT) [facility] Rubella Antibody IgG 50.1 IU/mL 05/16/2020 6:32 PM CDT [facility] [employer] ([facility]) Comment: INTERPRETIVE INFORMATION: Rubella Antibody, IgG ??Less than 9 IU/mL ........ Not Detected ??9 - 9.9 IU/mL ............ Indeterminate-Repeat testing in ? 10-14 days may be helpful. ??10 IU/mL or Greater ...... Detected The best evidence for current infection is a significant change on two appropriately timed specimens, where both tests are done in the same laboratory at the same time. The magnitude of the measured result is not indicative of the amount of antibody present. Performed By: [facility] [address] [place] [address] [place] [address] Senior Housekeeper: Valerie Mast MD Blood BLOOD SPECIMEN / Unknown Lab Venipuncture / Unknown 05/14/2020 10:18 AM CDT 05/14/2020 10:56 AM CDT Glenny Martin MD LAB - SEROLOGY ORDERABLES [facility] [employer] [facility]) [address] * RUBEOLA ANTIBODY IGG (05/14/2020 10:18 AM CDT) Measles (Rubeola) Antibody IgG >300.0 AU/mL 05/16/2020 2:46 PM CDT [facility] [employer] ([facility]) Comment: INTERPRETIVE INFORMATION: Measles (Rubeola) Antibody, IgG ??13.4 AU/mL or less........ Negative - No significant level ? of detectable measles (rubeola) ? IgG antibody. ??13.5-16.4 AU/mL .......... Equivocal - Repeat testing in ? 10-14 days may be helpful. ??16.5 AU/mL or greater .... Positive - IgG antibody to ? measles (rubeola) detected ? which may indicate a current ? or past exposure/immunization ? to measles (rubeola). The best evidence for current infection is a significant change on two appropriately timed specimens, where both tests are done in the same laboratory at the same time. Performed By: [facility] [address] [place] [address] Senior Housekeeper: Valerie Mast MD Blood BLOOD SPECIMEN / Unknown Lab Venipuncture / Unknown 05/14/2020 10:18 AM CDT 05/14/2020 10:57 AM CDT Glenny Martin MD LAB - CHEMISTRY ORDERABLES [employer] [facility]) [address] [place] [address], [facility] * MUMPS ANTIBODY IGG (05/14/2020 10:18 AM CDT) [facility] Mumps Virus Antibody IgG 17.2 AU/mL 05/16/2020 6:30 PM CDT [employer] ([facility]) Comment: INTERPRETIVE INFORMATION: Mumps Ab, IgG by DESTINY ??8.9 AU/mL or less .... Negative - No significant level of ? detectable IgG mumps virus antibody ??9.0-10.9 AU/mL ....... Equivocal - Repeat testing in -14 ? days may be helpful ??11.0 AU/mL or greater: Positive - IgG antibody to mumps ? virus detected, which may indicate ? a current or past exposure/ ? immunization to mumps virus. The best evidence for current infection is a significant change on two appropriately timed specimens, where both tests are done in the same laboratory at the same time. Performed By: [facility] [address] [place] [address] Senior Housekeeper: Valerie Mast MD Blood BLOOD SPECIMEN / Unknown Lab Venipuncture / Unknown 05/14/2020 10:18 AM CDT 05/14/2020 10:57 AM CDT Glenny Martin MD LAB - CHEMISTRY ORDERABLES [facility] [employer] ([facility]) [address] [place] [address], [facility] * VARICELLA ZOSTER ANTIBODY IGG (05/14/2020 10:18 AM CDT) Varicella zoster Virus Antibody IgG 3705.0 IV 05/16/2020 2:46 PM CDT [employer] ([facility]) Comment: INTERPRETIVE INFORMATION: VZV Ab, IgG 134.9 IV or less ....... Negative - No significant level of ? detectable IgG varicella-zoster ? antibody. 135.0 - 164.9 IV ....... Equivocal - Repeat testing in ? 10-14 days may be helpful. 165.0 IV or greater .... Positive - IgG antibody to ? varicella-zoster detected, which ? may indicate a current or past ? varicella-zoster infection. The best evidence for current infection is a significant change on two appropriately timed specimens, where both tests are done in the same laboratory at the same time. Performed By: [facility] [address] [place] [id number] Senior Housekeeper: Valerie Mast MD Blood BLOOD SPECIMEN / Unknown Lab Venipuncture / Unknown 05/14/2020 10:18 AM CDT 05/14/2020 10:57 AM CDT Glenny Martin MD LAB - CHEMISTRY ORDERABLES Performing Organization Address [facility] Co de Phone Number [facility] [employer] [facility]) [address] [place] [address] * PROTEIN C ACTIVITY (05/14/2020 10:18 AM CDT) Protein C Activity 155 83 - 168 % 05/16/2020 10:47 PM CDT [facility] [employer] ([facility]) Comment: INTERPRETIVE INFORMATION: Protein C, Functional Patients on warfarin may have decreased protein C values. Patients should be off warfarin therapy for two weeks for accurate measurement of protein C levels. Artificially increased functional protein C values may be due to heparin therapy or the presence of direct thrombin inhibitors or factor Xa inhibitors. Access complete set of age- and/or gender-specific reference intervals for this test in the [employer] Laboratory Test Directory ([employer]). Performed by [facility], [address] [place] [address] [email or web address], Valerie Mast MD, Lab. Director Blood BLOOD SPECIMEN / Unknown Lab Venipuncture / Unknown 05/14/2020 10:18 AM CDT 05/14/2020 10:48 AM CDT Glenny Martin MD LAB - COAGULATI ON ORDERABLES Performing Organization Address [facility] de Phone Number [facility]) [address] [place] [address] * TRANSFERRIN (05/14/2020 10:18 AM CDT) Transferrin 245 174 - 382 mg/dL 05/14/2020 11:41 AM CDT [facility] Transferrin Saturation % 27 16 - 50 % 05/14/2020 11:41 AM CDT [facility] Blood BLOOD SPECIMEN / Unknown Lab Venipuncture / Unknown 05/14/2020 10:18 AM CDT 05/14/2020 10:57 AM CDT Glenny Martin MD LAB - CHEMISTRY ORDERABLES [id number] [place] [address], [facility] [phone] * TOXOPLASMA GONDII ANTIBODY IGG (05/14/2020 10:18 AM CDT) Toxoplasma Antibody IgG <3.0 IU/mL 05/16/2020 6:32 PM CDT [facility] [employer] ([facility]) Comment: INTERPRETIVE INFORMATION: Toxoplasma Ab, IgG ??7.1 IU/mL or less....... Not Detected ??7.2-8.7 IU/mL .......... Indeterminate-Repeat testing in ? 10-14 days may be helpful. ??8.8 IU/mL or greater ... Detected The best evidence for current infection is a significant change on two appropriately timed specimens, where both tests are done in the same laboratory at the same time. This test should not be used for blood donor screening, associated re-entry protocols, or for screening Human Cell, Tissues and Cellular and Tissue-Based Products (HCT/P). The magnitude of the measured result is not indicative of the amount of antibody present. Performed By: [facility] [address] [place] [address] Senior Housekeeper: Valerie Mast MD Blood BLOOD SPECIMEN / Unknown Lab Venipuncture / Unknown 05/14/2020 10:18 AM CDT 05/14/2020 10:58 AM CDT Glenny Martin MD LAB - CHEMISTRY ORDERABLES [facility]) [address] * (ABNORMAL) MADIHA-MORRIS VIRUS ANTIBODY TO VCA IGG (05/14/2020 10:18 AM CDT) Pathologist [facility] Madiha-Morris Virus Antibody IgG Viral Capsid Antigen 115.0(H) 0.0 - 21.9 U/mL 05/16/2020 5:10 PM CDT [facility] [employer] ([facility]) Comment: INTERPRETIVE INFORMATION: Madiha-Morris Virus Antibody to ?Viral Capsid Antigen, IgG ??17.9 U/mL or less.......Not Detected ??18.0-21.9 U/mL..........Indeterminate - Repeat testing in ?10-14 days may be helpful. ??22.0 U/mL or greater....Detected Performed By: [employer] [address] [place] [address] Senior Housekeeper: Valerie Mast MD Blood BLOOD SPECIMEN / Unknown Lab Venipuncture / Unknown 05/14/2020 10:18 AM CDT 05/14/2020 10:55 AM CDT Glenny Martin MD LAB - CHEMISTRY ORDERABLES Performing Organization Address City/State/[facility] Co de Phone Number [facility] ([facility]) [address] [place] [address], [facility] * (ABNORMAL) HEMOGLOBIN A1C (05/14/2020 10:18 AM CDT) Only the most recent of2 resultswithin the time period is included. Hemoglobin A1c 7.7(H) 4.4 - 6.3 % 05/14/2020 3:37 PM CDT [facility] Estimated Average Glucose 174 mg/dL 05/14/2020 3:37 PM T [facility] Comment: HbA1c Interpretation: Treatment target values recommended by ADA and other clinical organizations should be used to evaluate metabolic control in patients. Treatment Target Values: Normal : < 5.7% Pre-diabetes: 5.7-6.4% Diabetes: Equal to or greater than 6.5% Reference: [place] Diabetes Association Standards of Care in Diabetes -2014 In patients 70 years and older consider HbA1c target range of 7.0-7.5% Reference: ??Diabetes Mellitus in Older People: Position Statement on behalf of the International Association of Gerontology and Geriatrics (IAGG), the Diabetes Working Democrat for Older People (EDWPOP), and the International Task Force of Experts in Diabetes. ??Casarez A, et al. J [place] Medical Directors Association. 2012 Test results diagnostic of diabetes should be repeated for confirmation. The Sebia Capillary 2 assay for the measurement of HbA1c is a National Glycohemoglobin Standardization Program (NGSP)certified method. Blood BLOOD SPECIMEN / Unknown Lab Venipuncture / Unknown 05/14/2020 10:18 AM CDT 05/14/2020 10:55 AM CDT Glenny Martin MD LAB - CHEMISTRY ORDERABLES Performing Organization Address [facility]/ZIP Co de Phone Number [address] [address], [place] [phone] * (ABNORMAL) HOMOCYSTEINE BLOOD QUANTITATIVE (05/14/2020 10:18 AM CDT) Homocysteine 21.1(H) 4.4 - 16.2 umol/L 05/14/2020 11:51 AM CDT [facility] Blood BLOOD SPECIMEN / Unknown Lab Venipuncture / Unknown 05/14/2020 10:18 AM CDT 05/14/2020 10:48 AM CDT Sourav Moscoso MD LAB - CHEMISTRY HUANE SULEMA Performing Organization Address [facility]/ZIP Co de Phone Number [address] [address], [place] [phone] * ANTITHROMBIN III ACTIVITY (05/14/2020 10:18 AM CDT) AT III Activity 125 76 - 128 % 0 9:58 PM CDT [employer] ([facility]) Comment: REFERENCE INTERVAL: Antithrombin, Enzymatic (Activity) Access complete set of age- and/or gender-specific reference intervals for this test in the [employer] Laboratory Test Directory ([employer]). Performed by [facility], [address] [place] [id number] [email or web address], Valerie Mast MD, Lab. Director Blood BLOOD SPECIMEN / Unknown Lab Venipuncture / Unknown 05/14/2020 10:18 AM CDT 05/14/2020 10:51 AM CDT Sourav Moscoso MD LAB - COAGULATION OR DERABLES [facility] ([facility]) [address] [place] [address], [facility] * (ABNORMAL) VITAMIN D 25-HYDROXY (05/14/2020 10:18 AM CDT) Only the most recent of2 resultswithin the time period is included. [facility] Vitamin D, 25 Hydroxy 23.0(L) See comment: ng/mL 05/14/2020 11:48 AM CDT [facility] Comment: The recommendations for 25-Hydroxy Vitamin D clinical decision points are as follows: ? Deficient: ? <20.0 ng/mL ? Insufficient: ??20.0 - 29.9 ng/mL ? Sufficient: ? > or =30.0 ng/mL If the 25-Hydroxy Vitamin D results are inconsitent with clinical evidence, it is recommended that follow-up testing using a method such as LC/MS/MS be performed to confirm the result. Reference: ?The Endocrine Society Clinical Practice Guidelines. 2010 ? Blood BLOOD SPECIMEN / Unknown Lab Venipuncture / Unknown 05/14/2020 10:18 AM CDT 05/14/2020 10:55 AM CDT Glenny Martin MD LAB - CHEMISTRY ORDERABLES Performing Organization Address City/[facility]/ZIP Co de Phone Number [facility] [address] [place] [address], [place] [phone] * BLOOD TYPE ABO+ RH PANEL (05/14/2020 10:18 AM CDT) ABO Rh A POS 05/14/2020 12:11 PM CDT [facility] Blood BLOOD SPECIMEN / Unknown Lab Venipuncture / Unknown 05/14/2020 10:18 AM CDT 05/14/2020 11:29 AM CDT Glenny Martin MD LAB - BLOOD BAN K ORDERABLES [facility] [address] [place] [address], [facility] [phone] * NICOTINE + METABOLITES BLOOD (05/14/2020 10:18 AM CDT) Nicotine <2 ng/mL 05/18/2020 10:08 PM CDT [employer] ([facility]) Comment: Consistent with abstinence from nicotine-containing products for at least 1 week. INTERPRETIVE INFORMATION: Nicotine and Metabolites, ?Serum or Plasma, ?Quantitative Methodology: Quantitative Liquid Chromatography-Tandem Mass Spectrometry Positive cutoff: 2 ng/mL For medical purposes only; not valid for forensic use. This test is designed to evaluate recent use of nicotine-containing products. ??Passive and active exposure cannot be discriminated definitively, although a cutoff of 10 ng/mL cotinine is frequently used for surgery qualification purposes. ?? For smoking cessation programs or compliance testing, the absence of expected drug(s) and/or drug metabolite(s) may indicate non-compliance, inappropriate timing of specimen collection relative to drug administration, poor drug absorption, or limitations of testing. This test cannot distinguish between use of tobacco and purified nicotine products. The concentration value must be greater than or equal to the cutoff to be reported as positive. ?? Test developed and characteristics determined by [facility]. See Compliance Statement B: [employer] Performed By: [facility] [address] [place] [id number] Senior Housekeeper: Valerie Mast MD 3-Hydroxy Cotinine <2 ng/mL 2019 10:08 PM CDT [facility]) Cotinine <2 ng/mL 05/18/2020 10:08 PM CDT [facility]) Blood BLOOD SPECIMEN / Unknown Lab Venipuncture / Unknown 05/14/2020 10:18 AM CDT 05/14/2020 10:57 AM CDT Glenny Martin MD LAB - CHEMISTRY ORDERABLES [facility]) [address] [place], [place] [address] * (ABNORMAL) CBC W AUTO DIFFERENTIAL (05/14/2020 10:18 AM CDT) Only the most recent of2 resultswithin the time period is included. WBC 5.0 3.5 - 10.5 10? 3 /uL 05/14/2020 11:03 AM [facility] RBC 3.45(L) 4.30 - 5.70 10? 6 /uL 05/14/2020 11:03 AM [facility] Hemoglobin 10.7(L) 13.5 - 17.5 g/dL 05/14/2020 11:03 AM [facility] Hematocrit 31.1(L) 39.0 - 50.0 % 05/14/2020 11:03 AM [facility] MCV 90.1 81.0 - 97.0 fL 05/14/2020 11:03 AM [facility] MCH 31.0 28.0 - 34.0 pg 05/14/2020 11:03 AM [facility] MCHC 34.4 32.0 - 36.0 g/dL 05/14/2020 11:03 AM [facility] Platelet Count 232 150 - 400 10? 3 /uL 05/14/2020 11:03 AM [facility] RDW-SD 42.4 36.0 - 50.0 fL 05/14/2020 11:03 AM [facility] RDW-CV 12.9 11.2 - 14.8 % 05/14/2020 11:03 AM [facility] MPV 9.8 9.3 - 12.8 fL 05/14/2020 11:03 AM [facility] nRBC Absolute 0.00 0 10? 3 /uL 05/14/2020 11:03 AM [facility] nRBC Auto 0.0 0 /100 WBC 05/14/2020 11:03 AM [facility] Neutrophils % 54.8 35.0 - 70.0 % 05/14/2020 11:03 AM [facility] Lymphocytes % 31.2 19.7 - 55.1 % 05/14/2020 11:03 AM [facility] Monocytes % 9.4 3.0 - 15.0 % 05/14/2020 11:03 AM [facility] Eosinophils % 3.8 0.0 - 6.0 % 05/14/2020 11:03 AM [facility] Basophil % 0.6 0.0 - 1.5 % 05/14/2020 11:03 AM [facility] Neutrophils Absolute 2.7 1.6 - 7.0 10? 3 /uL 05/14/2020 11:03 AM [facility] Lymphocyte Absolute 1.6 0.8 - 2.9 10? 3 /uL 05/14/2020 11:03 AM [facility] Monocytes Absolute 0.47 0.14 - 0.66 10? 3 /uL 05/14/2020 11:03 AM [facility] Eosinophils Absolute 0.19 0.00 - 0.45 10? 3 /uL 05/14/2020 11:03 AM [facility] Basophils Absolute 0.03 0.00 - 0.06 10? 3 /uL 05/14/2020 11:03 AM [facility] Immature Granulocytes % 0.2 0.0 - 1.0 % 05/14/2020 11:03 AM [facility] Blood BLOOD SPECIMEN / Unknown Lab Venipuncture / Unknown 05/14/2020 10:18 AM CDT 05/14/2020 10:55 AM [facility] Glenny Martin MD LAB - HEMATOLOG Y ORDERABLES [facility] [address] [place] [address], [facility] [phone] * (ABNORMAL) COMPREHENSIVE METABOLIC PANEL (05/14/2020 10:18 AM [facility]) Only the most recent of2 resultswithin the time period is included. BUN 65(H) 7 - 26 mg/dL 05/14/2020 11:41 AM [facility] Creatinine 5.6(H) 0.6 - 1.2 mg/dL 05/14/2020 11:41 AM [facility] Sodium 142 136 - 145 mmol/L 05/14/2020 11:41 AM [facility] Potassium 3.7 3.5 - 4.5 mmol/L 05/14/2020 11:41 AM [facility] Chloride 101 98 - 107 mmol/L 05/14/2020 11:41 AM [facility] CO2 28 22 - 29 mmol/L 05/14/2020 11:41 AM [facility] Glucose 162(H) 70 - 115 mg/dL 05/14/2020 11:41 AM [facility] Calcium 9.0 8.4 - 10.2 mg/dL 05/14/2020 11:41 AM [facility] Protein Total 6.9 6.0 - 8.3 g/dL 05/14/2020 11:41 AM [facility] Albumin 3.7 3.4 - 5.0 g/dL 05/14/2020 11:41 AM [facility] Bilirubin Total 0.7 0.2 - 1.2 mg/dL 05/14/2020 11:41 AM [facility] Alkaline Phosphatase 140 40 - 150 Units/L 05/14/2020 11:41 AM [facility] ALT 43 0 - 55 Units/L 05/14/2020 11:41 AM [facility] AST 29 5 - 34 Units/L 05/14/2020 11:41 AM [facility] Anion Gap 17 8 - 18 05/14/2020 11:41 AM [facility] BUN/Creatinine Ratio 12 7 - 23 05/14/2020 11:41 AM [facility] Osmolality Calculated 316(H) 270 - 300 mOsm/kg 05/14/2020 11:41 AM [facility] Albumin/Globulin Ratio 1.2 1.1 - 2.3 05/14/2020 11:41 AM CDT [facility] eGFR 11(L) >60 mL/min/1.7 3 m2 05/14/2020 11:41 AM CDT [facility] Blood BLOOD SPECIMEN / Unknown Lab Venipuncture / Unknown 05/14/2020 10:18 AM CDT 05/14/2020 10:55 AM CDT Glenny Martin MD LAB - CHEMISTRY ORDERABLES [facility] [address] [place] [address], [place] [phone] * PROSTATE SPECIFIC ANTIGEN SCREEN (05/14/2020 10:18 AM CDT) PSA Total 0.4 0.0 - 4.0 ng/mL 05/14/2020 11:59 AM CDT [facility] Blood BLOOD SPECIMEN / Unknown Lab Venipuncture / Unknown 05/14/2020 10:18 AM CDT 05/14/2020 10:55 AM CDT Glenny Martin MD LAB - CHEMISTRY ORDERABLES Performing Organization Address [facility] Co de Phone Number [address] [address], [place] [phone] * (ABNORMAL) PHOSPHORUS BLOOD (05/14/2020 10:18 AM CDT) Phosphorus 5.1(H) 2.3 - 4.7 mg/dL 05/14/2020 11:41 AM CDT [facility] Blood BLOOD SPECIMEN / Unknown Lab Venipuncture / Unknown 05/14/2020 10:18 AM CDT 05/14/2020 10:55 AM CDT Glenny Martin MD LAB - CHEMISTRY ORDERABLES Performing Organization Address City/[facility]/ZIP Co de Phone Number [address] [address], [place] [phone] * IRON BLOOD (05/14/2020 10:18 AM CDT) Iron 84 50 - 175 mcg/dL 05/14/2020 11:41 AM CDT [facility] Blood BLOOD SPECIMEN / Unknown Lab Venipuncture / Unknown 05/14/2020 10:18 AM CDT 05/14/2020 10:57 AM CDT Glenny Martin MD LAB - CHEMISTRY ORDERABLES Performing Organization Address City/[facility]/ZIP Co de Phone Number [facility] [address] [place] [address], [facility] [phone] * (ABNORMAL) HEPATITIS B SURFACE ANTIBODY (05/14/2020 10:18 AM CDT) [facility] Hepatitis B Virus Surface Antibody Reactive( A) Non-react bianca 05/14/2020 11:47 AM CDT [facility] Comment: > 12 mIU/mL Hepatitis B surface Antibody (HBsAb). Reactive for HBsAb - individual is considered immune to Hepatitis B Virus infection. Hepatitis B Surface Antibody Quantitative 72.7(H) <8.0 mIU/mL 05/14/2020 11:47 AM CDT [facility] Comment: Hepatitis B Surface Antibody Numeric Result Interpretation: ? Nonreactive: ?<8.0 mIU/mL ? Indeterminate: ??8.0 - 12.0 mIU/mL ? Reactive: ?>12.0 mIU/mL ? Blood BLOOD SPECIMEN / Unknown Lab Venipuncture / Unknown 05/14/2020 10:18 AM CDT 05/14/2020 10:55 AM CDT Glenny Martin MD LAB - CHEMISTRY ORDERABLES Performing Organization Address [facility]/ZIP Co de Phone Number [facility] [address] [place] [address], [place] [phone] * HEPATITIS B CORE ANTIBODY (05/14/2020 10:18 AM CDT) Pathologist [facility] Antibody Total Non-reacti ve Non-reacti ve 05/14/2020 11:47 AM CDT [facility] Blood BLOOD SPECIMEN / Unknown Lab Venipuncture / Unknown 05/14/2020 10:18 AM CDT 05/14/2020 10:55 AM CDT Glenny Martin MD LAB - CHEMISTRY ORDERABLES [address] [address], [place] [phone] * HEPATITIS B SURFACE ANTIGEN W RFLX CONFIRMATION (05/14/2020 10:18 AM CDT) [facility] Hepatitis B Virus Surface Antigen Non-reacti ve Non-reacti ve 05/14/2020 11:47 AM CDT [facility] Blood BLOOD SPECIMEN / Unknown Lab Venipuncture / Unknown 05/14/2020 10:18 AM CDT 05/14/2020 10:55 AM CDT Glenny Martin MD LAB - CHEMISTRY ORDERABLES Performing Organization Address [facility] Co de Phone Number [address] [address], [place] [phone] * ALCOHOL ETHYL BLOOD (05/14/2020 10:18 AM CDT) [facility] Interpretation Ethanol None Detected None Detected mg/dL 05/14/2020 11:41 AM CDT [facility] Comment:Ethanol levels less than 10 mg/dL are resulted as None detected . Blood BLOOD SPECIMEN / Unknown Lab Venipuncture / Unknown 05/14/2020 10:18 AM CDT 05/14/2020 10:55 AM CDT Glenny Martin MD LAB - CHEMISTRY ORDERABLES Performing Organization Address City/[facility]/ZIP Co de Phone Number [address] [address], [place] [phone] * HEPATITIS C ANTIBODY (05/14/2020 10:18 AM CDT) Pathologist [facility] Hepatitis C Antibody Non-react bianca Non-reac tive 05/14/2020 11:49 AM CDT [facility] Comment:Hepatitis C Antibody screen indicates no [...] 10:18 AM CDT 05/14/2020 10:57 AM CDT Glneny Martin MD LAB - CHEMISTRY ORDERABLES Performing Organization Address [facility] Co de Phone Number [facility] [address] [place] [address], [facility] [phone] * (ABNORMAL) HEPATITIS A ANTIBODY (05/14/2020 10:18 AM CDT) [facility] Hepatitis A Virus Antibody Total Positive( A) Negative 05/16/2020 11:02 AM CDT [employer] ([facility]) Comment: The positive anti-HAV is consistent with recent or remote Hepatitis A infection or antibody response to HAV vaccination. False positive anti-HAV can occur. Performed by [employer], [address] [place] [address] [email or web address], Valerie Mast MD, Lab. Director Blood BLOOD SPECIMEN / Unknown Lab Venipuncture / Unknown 05/14/2020 10:18 AM CDT 05/14/2020 10:57 AM CDT Glenny Martin MD LAB - CHEMISTRY ORDERABLES Performing Organization Address [facility]/ZIP Co de Phone Number [facility]) [address] [place] [address] * (ABNORMAL) FERRITIN (05/14/2020 10:18 AM CDT) [facility] Ferritin 502(H) 22 - 275 ng/mL 05/14/2020 11:47 AM CDT [facility] Blood BLOOD SPECIMEN / Unknown Lab Venipuncture / Unknown 05/14/2020 10:18 AM CDT 05/14/2020 10:55 AM CDT Glenny Martin MD LAB - CHEMISTRY ORDERABLES [facility] [address] [place] [address], [facility] [phone] * (ABNORMAL) LIPID PROFILE (05/14/2020 10:18 AM CDT) Cholesterol Total 137 <200 mg/dL 05/14/2020 11:41 AM T [facility] HDL 28(L) >40 mg/dL 05/14/2020 11:41 AM [facility] Comment: ATP III Classification of HDL Cholesterol: ? <40 mg/dL: ??Considered a major risk factor. ? >60 mg/dL: ??Considered a negative risk factor. ? LDL Calculated 70 <100 mg/dL 05/14/2020 11:41 AM [facility] Comment: ATP III Classification of LDL Cholesterol: ?<100 mg/dL: ??Optimal ? 100 - 129 mg/dL: ??Near Optimal/Above Optimal ? 130 - 159 mg/dL: ??Borderline High ? 160 - 189 mg/dL: ??High ?>190 mg/dL: ??Very High ? Triglycerides 196(H) <150 mg/dL 05/14/2020 11:41 AM [facility] Comment: ATP III Classification of Triglycerides: ?<150 mg/dL: ??Normal ? 150 - 199 mg/dL: ??Borderline High ? 200 - 400 mg/dL: ??High ?>500 mg/dL: ??Very High Blood BLOOD SPECIMEN / Unknown Lab Venipuncture / Unknown 05/14/2020 10:18 AM CDT 05/14/2020 10:55 AM CDT Glenny Martin MD LAB - CHEMISTRY ORDERABLES Performing Organization Address City/[facility]/ZIP Co de Phone Number [facility] [address] [place] [address], [facility] [phone] * TYPE + SCREEN PANEL (05/14/2020 10:06 AM CDT) Antibody Screen NEG 0 12:17 PM CDT [facility] ABO Rh A POS 05/14/2020 12:17 PM CDT [facility] Blood Bank BLOOD SPECIMEN / Unknown Lab Venipuncture / Unknown 05/14/2020 10:06 AM CDT 05/14/2020 11:30 AM CDT Glenny Martin MD LAB - BLOOD BAN K ORDERABLES Performing Organization Address City/[facility]/ZIP Co de Phone Number [facility] [address] [place] [address], [facility] [phone] * XR PANOREX (05/14/2020 7:35 AM CDT) Anatomical Region Laterality Modality Head Radiographic Toma ging 05/14/2020 7:56 AM CDT Impressions 05/15/2020 7:51 AM CDT IMPRESSION: No periapical abscess identified. Dictated by Kristie Bee MD (president & ceo). I, Dr. CONRAD GONZALES MD have personally reviewed and interpreted this examination/study. This report was electronically signed by CONRAD GONZALES MD ??on 05/15/2020 7:51 AM . Narrative 05/15/2020 7:51 AM CDT EXAMINATION: Panorex HISTORY: Z01.818: Pre-transplant evaluation for kidney transplant COMPARISON: No prior study is available for comparison. FINDINGS: Dental restorations and a bridge are present. Several teeth are absent. There is no evidence of fracture of the mandible. The temporomandibular joints are intact bilaterally. No periapical lucency is seen to indicate abscess. Procedure Note Conrad Gonzales MD - 05/15/2020 EXAMINATION: Panorex HISTORY: Z01.818: Pre-transplant evaluation for kidney transplant COMPARISON: No prior study is available for comparison. FINDINGS: Dental restorations and a bridge are present. Several teeth are absent. There is no evidence of fracture of the mandible. The temporomandibular joints are intact bilaterally. No periapical lucency is seen to indicate abscess. IMPRESSION: No periapical abscess identified. Dictated by Kristie Bee MD (president & ceo). Dr. CONRAD Champion MD have personally reviewed and interpreted this examination/study. This report was electronically signed by CONRAD GONZALES MD on05/15/2020 7:51 AM . Glenny Martin MD DIAGNOSTIC IMAG ING ORDERABLES * XR CHEST PA AND LATERAL (05/14/2020 7:34 AM CDT) Anatomical Region Laterality Modality Chest Radiographic Toma ging 05/14/2020 7:59 AM CDT Impressions 05/15/2020 7:49 AM CDT FINDINGS/IMPRESSION: There is no pulmonary consolidation, pleural effusion, or pneumothorax. The heart size is normal. Dictated by Kristie Bee MD (president & ceo). Dr. CONRAD Champion MD have personally reviewed and interpreted this examination/study. This report was electronically signed by CONRAD GONZALES MD ??on 05/15/2020 7:49 AM . Narrative 05/15/2020 7:49 AM CDT EXAMINATION: XR CHEST 2VW HISTORY: Z01.818: Pre-transplant evaluation for kidney transplant COMPARISON: No prior study is available for comparison. Procedure Note Conrad Gonzales MD - 05/15/2020 EXAMINATION: XR CHEST 2VW HISTORY: Z01.818: Pre-transplant evaluation for kidney transplant COMPARISON: No prior study is available for comparison. FINDINGS/IMPRESSION: There is no pulmonary consolidation, pleural effusion, or pneumothorax. The heart size is normal. Dictated by Kristie Bee MD (president & ceo). Dr. CONRAD Champion MD have personally reviewed and interpreted this examination/study. This report was electronically signed by CONRAD GONZALES MD on05/15/2020 7:49 AM . Glenny Martin MD DIAGNOSTIC IMAG ING ORDERABLES * LAB RESULTS ORDER (06/11/2019 12:33 PM CDT) Narrative 06/11/2019 12:33 PM CDT Ordered by an unspecified provider. Scanned Document LAB - THERAPEUTIC DR UG MONITORING ORDERABLES * (ABNORMAL) CREATININE CLEARANCE URINE TIMED + BLOOD (04/27/2019 9:17 AM CDT) Creatinine 4.63(H) 0.70 - 1.33 mg/dL [facility] Comment: For patients >49 years of age, the reference limit for Creatinine is approximately 13% higher for people identified as -Citizen Of [place]. eGFR by MDRD 14(L) > OR = 60 mL/min/1. 73m2 [facility] eGFR by MDRD 16(L) > OR = 60 mL/min/1. 73m2 [facility] Creatinine 24 Hour Urine 1.44 0.50 - 2.15 g/24 h [facility] Body Surface Area 2.33 [facility] Creatinine Clearance 16(L) 85 - 125 mL/min [facility] Height Feet 5 ft [facility] Height Inches 10 in [facility] Weight Lbs 260 [facility] Comment: Test Performed at: [facility]Magn[facility] [place], [place] ??[phone] ANA REYES DO,MPH 04/27/2019 9:17 AM CDT 04/27/2019 9:19 AM CDT Judah Norton MD LAB - URINE CHEMISTR Y ORDERABLES [facility] [address] [place] [address] * XR FOOT RIGHT 3VW OR MORE (04/26/2019 1:21 PM CDT) Anatomical Region Laterality Modality Ankle / Foot Radiographic Toma ging 04/26/2019 1:20 PM CDT Impressions 04/26/2019 2:11 PM CDT IMPRESSION: 1. Right and left hands: Mild to moderate erosive arthritis affecting several metacarpal phalangeal and interphalangeal joints bilaterally. The appearance is consistent with the known history of gout. 2. 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 Moderate to severe erosive arthritis at the right first metatarsophalangeal joint and mild erosive arthritis at the left first metatarsophalangeal and interphalangeal joints. 3. Sacroiliac joints: Mild sclerosis, likely degenerative. 4. Lumbar spine: Mild degeneration. Dictated by Ash Moreira MD (resident). I, Dr. CONRAD GONZALES MD have personally reviewed and interpreted this examination/study. This report was electronically signed by CONRAD GONZALES MD ??on 04/26/2019 2:11 PM . Narrative 04/26/2019 2:11 PM CDT EXAMINATION: 1. Left hand, 3 views 2. Right hand, 3 views 3. Left foot, 3 views 4. Right foot, 3 views 5. SI joints, 3 views 6. Lumbar spine 4 views HISTORY: 48 yo with gout, diffuse arthralgia and positive Shawn's test. COMPARISON: No prior study is available for comparison. FINDINGS: 1. Left hand: No acute fracture or dislocation. There are erosions at multiple joints including at the first, second, third, and fifth metacarpophalangeal and second through fourth digit proximal interphalangeal joints. The joint spaces are mostly preserved, except for mild narrowing at the third digit proximal interphalangeal joint. There is mild arthritic change at a few distal interphalangeal joints. The bone density is normal. Vascular calcifications are noted, otherwise the soft tissues are unremarkable. 2. Right hand: No acute fracture or dislocation. There are erosions at several joints including the second through fifth metacarpophalangeal, third and fourth proximal interphalangeal, and second, third, and fifth digit distal interphalangeal. The joint spaces are relatively preserved. A few small osteophytes are noted. Bone density is normal. Vascular calcification is noted, otherwise the soft tissues are unremarkable. 3. Right foot: There are chronic fracture deformities of the third through fifth metatarsals with sclerosis. There is severe arthritis at the second through fifth tarsometatarsal joints with erosions, sclerosis, bony production, and on the lateral view mild subluxation. ?? A few additional scattered erosions are noted in the midfoot. There is moderate to severe erosive arthritis at the first metatarsophalangeal joint with sclerosis and osteophytes. There is soft tissue swelling. A small plantar calcaneal is seen. 4. Left foot: Chronic fracture deformities are seen at the proximal aspects of the second through fifth metatarsals. There is sclerosis in these bones. There is moderate arthritis at the second through fifth tarsometatarsal joints with articular surface irregularity, sclerosis, and cyst/erosions. There is mild arthritis at the first metatarsophalangeal joint and first interphalangeal joint with a few erosions. There is no dislocation. Vascular calcification and mild soft tissue swelling are noted. 5. SI joints: There is mild sclerosis along the mid portions of both sacroiliac joints, right greater than left. This may be degenerative. No erosion, widening, narrowing, or ankylosis is seen on either side. There is no fracture. Lumbar spine: There is mild disc space narrowing with endplate sclerosis and small osteophyte formation at L5-S1. Endplate osteophytes are seen at a few other levels without disc space narrowing. There is mild sclerosis of the lower lumbar facets. No fracture seen. There is no subluxation with flexion or extension. Vascular calcification is evident. Procedure Note Conrad Gonzales MD - 04/26/2019 EXAMINATION: 1. Left hand, 3 views 2. Right hand, 3 views 3. Left foot, 3 views 4. Right foot, 3 views 5. SI joints, 3 views 6. Lumbar spine 4 views HISTORY: 48 yo with gout, diffuse arthralgia and positive Shawn'stest. COMPARISON: No prior study is available for comparison. FINDINGS: 1. Left hand: No acute fracture or dislocation. There are erosions at multiple joints including at the first, second, third, and fifth metacarpophalangeal and second through fourth digit proximal interphalangeal joints. The joint spaces are mostly preserved, exceptfor mild narrowing at the third digit proximal interphalangeal joint. Thereis mild arthritic change at a few distal interphalangeal joints. The bone density is normal. Vascular calcifications are noted, otherwise the soft tissues are unremarkable. 2. Right hand: No acute fracture or dislocation. There are erosions at several joints including the second through fifth metacarpophalangeal, third and fourth proximal interphalangeal, and second, third, and fifth digit distal interphalangeal. The joint spaces are relatively preserved.A few small osteophytes are noted. Bone density is normal. Vascular calcification is noted, otherwise the soft tissues are unremarkable. 3. Right foot: There are chronic fracture deformities of the thirdthrough fifth metatarsals with sclerosis. There is severe arthritis at thesecond through fifth tarsometatarsal joints with erosions, sclerosis, bony production, and on the lateral view mild subluxation. A few additional scattered erosions are noted in the midfoot. There is moderate to severe erosive arthritis at the first metatarsophalangeal joint with sclerosis and osteophytes. There is soft tissue swelling. A small plantarcalcaneal is seen. 4. Left foot: Chronic fracture deformities are seen at the proximal aspects of the second through fifth metatarsals. There is sclerosis in these bones. There is moderate arthritis at the second through fifth tarsometatarsal joints with articular surface irregularity, sclerosis,and cyst/erosions. There is mild arthritis at the first metatarsophalangeal joint and first interphalangeal joint with a few erosions. There is no dislocation. Vascular calcification and mild soft tissue swelling are noted. 5. SI joints: There is mild sclerosis along the mid portions of both sacroiliac joints, right greater than left. This may be degenerative. No erosion, widening, narrowing, or ankylosis is seen on either side. There is no fracture. Lumbar spine: There is mild disc space narrowing with endplate sclerosis and small osteophyte formation at L5-S1. Endplate osteophytes are seen at a few other levels without disc space narrowing. There is mild sclerosis ofthe lower lumbar facets. No fracture seen. There is no subluxation with flexion or extension. Vascular calcification is evident. IMPRESSION: 1. Right and left hands: Mild to moderate erosive arthritis affecting several metacarpal phalangeal and interphalangeal joints bilaterally.The appearance is consistent with the known history of gout. 2. 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 Moderate to severe erosive arthritis at the right first metatarsophalangeal joint and mild erosive arthritis at the left first metatarsophalangeal and interphalangeal joints. 3. Sacroiliac joints: Mild sclerosis, likely degenerative. 4. Lumbar spine: Mild degeneration. Dictated by Ash Moreira MD (resident). Dr. CONRAD Champion MD have personally reviewed and interpreted this examination/study. This report was electronically signed by CONRAD GONZALES MD on04/26/2019 2:11 PM . Judah Norton MD DIAGNOSTIC IMAGING O RDERABLES * XR FOOT LEFT 3VW OR MORE (04/26/2019 1:21 PM CDT) Anatomical Region Laterality Modality Ankle / Foot Radiographic Toma ging 04/26/2019 1:20 PM CDT Impressions 04/26/2019 2:11 PM CDT IMPRESSION: 1. Right and left hands: Mild to moderate erosive arthritis affecting several metacarpal phalangeal and interphalangeal joints bilaterally. The appearance is consistent with the known history of gout. 2. 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 Moderate to severe erosive arthritis at the right first metatarsophalangeal joint and mild erosive arthritis at the left first metatarsophalangeal and interphalangeal joints. 3. Sacroiliac joints: Mild sclerosis, likely degenerative. 4. Lumbar spine: Mild degeneration. Dictated by Ash Moreira MD (resident). Dr. CONRAD Champion MD have personally reviewed and interpreted this examination/study. This report was electronically signed by CONRAD GONZALES MD ??on 04/26/2019 2:11 PM . Narrative 04/26/2019 2:11 PM CDT EXAMINATION: 1. Left hand, 3 views 2. Right hand, 3 views 3. Left foot, 3 views 4. Right foot, 3 views 5. SI joints, 3 views 6. Lumbar spine 4 views HISTORY: 48 yo with gout, diffuse arthralgia and positive Shawn's test. COMPARISON: No prior study is available for comparison. FINDINGS: 1. Left hand: No acute fracture or dislocation. There are erosions at multiple joints including at the first, second, third, and fifth metacarpophalangeal and second through fourth digit proximal interphalangeal joints. The joint spaces are mostly preserved, except for mild narrowing at the third digit proximal interphalangeal joint. There is mild arthritic change at a few distal interphalangeal joints. The bone density is normal. Vascular calcifications are noted, otherwise the soft tissues are unremarkable. 2. Right hand: No acute fracture or dislocation. There are erosions at several joints including the second through fifth metacarpophalangeal, third and fourth proximal interphalangeal, and second, third, and fifth digit distal interphalangeal. The joint spaces are relatively preserved. A few small osteophytes are noted. Bone density is normal. Vascular calcification is noted, otherwise the soft tissues are unremarkable. 3. Right foot: There are chronic fracture deformities of the third through fifth metatarsals with sclerosis. There is severe arthritis at the second through fifth tarsometatarsal joints with erosions, sclerosis, bony production, and on the lateral view mild subluxation. ?? A few additional scattered erosions are noted in the midfoot. There is moderate to severe erosive arthritis at the first metatarsophalangeal joint with sclerosis and osteophytes. There is soft tissue swelling. A small plantar calcaneal is seen. 4. Left foot: Chronic fracture deformities are seen at the proximal aspects of the second through fifth metatarsals. There is sclerosis in these bones. There is moderate arthritis at the second through fifth tarsometatarsal joints with articular surface irregularity, sclerosis, and cyst/erosions. There is mild arthritis at the first metatarsophalangeal joint and first interphalangeal joint with a few erosions. There is no dislocation. Vascular calcification and mild soft tissue swelling are noted. 5. SI joints: There is mild sclerosis along the mid portions of both sacroiliac joints, right greater than left. This may be degenerative. No erosion, widening, narrowing, or ankylosis is seen on either side. There is no fracture. Lumbar spine: There is mild disc space narrowing with endplate sclerosis and small osteophyte formation at L5-S1. Endplate osteophytes are seen at a few other levels without disc space narrowing. There is mild sclerosis of the lower lumbar facets. No fracture seen. There is no subluxation with flexion or extension. Vascular calcification is evident. Procedure Note Conrad Gonzales MD - 04/26/2019 EXAMINATION: 1. Left hand, 3 views 2. Right hand, 3 views 3. Left foot, 3 views 4. Right foot, 3 views 5. SI joints, 3 views 6. Lumbar spine 4 views HISTORY: 48 yo with gout, diffuse arthralgia and positive Shawn'stest. COMPARISON: No prior study is available for comparison. FINDINGS: 1. Left hand: No acute fracture or dislocation. There are erosions at multiple joints including at the first, second, third, and fifth metacarpophalangeal and second through fourth digit proximal interphalangeal joints. The joint spaces are mostly preserved, exceptfor mild narrowing at the third digit proximal interphalangeal joint. Thereis mild arthritic change at a few distal interphalangeal joints. The bone density is normal. Vascular calcifications are noted, otherwise the soft tissues are unremarkable. 2. Right hand: No acute fracture or dislocation. There are erosions at several joints including the second through fifth metacarpophalangeal, third and fourth proximal interphalangeal, and second, third, and fifth digit distal interphalangeal. The joint spaces are relatively preserved.A few small osteophytes are noted. Bone density is normal. Vascular calcification is noted, otherwise the soft tissues are unremarkable. 3. Right foot: There are chronic fracture deformities of the thirdthrough fifth metatarsals with sclerosis. There is severe arthritis at thesecond through fifth tarsometatarsal joints with erosions, sclerosis, bony production, and on the lateral view mild subluxation. A few additional scattered erosions are noted in the midfoot. There is moderate to severe erosive arthritis at the first metatarsophalangeal joint with sclerosis and osteophytes. There is soft tissue swelling. A small plantarcalcaneal is seen. 4. Left foot: Chronic fracture deformities are seen at the proximal aspects of the second through fifth metatarsals. There is sclerosis in these bones. There is moderate arthritis at the second through fifth tarsometatarsal joints with articular surface irregularity, sclerosis,and cyst/erosions. There is mild arthritis at the first metatarsophalangeal joint and first interphalangeal joint with a few erosions. There is no dislocation. Vascular calcification and mild soft tissue swelling are noted. 5. SI joints: There is mild sclerosis along the mid portions of both sacroiliac joints, right greater than left. This may be degenerative. No erosion, widening, narrowing, or ankylosis is seen on either side. There is no fracture. Lumbar spine: There is mild disc space narrowing with endplate sclerosis and small osteophyte formation at L5-S1. Endplate osteophytes are seen at a few other levels without disc space narrowing. There is mild sclerosis ofthe lower lumbar facets. No fracture seen. There is no subluxation with flexion or extension. Vascular calcification is evident. IMPRESSION: 1. Right and left hands: Mild to moderate erosive arthritis affecting several metacarpal phalangeal and interphalangeal joints bilaterally.The appearance is consistent with the known history of gout. 2. 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 Moderate to severe erosive arthritis at the right first metatarsophalangeal joint and mild erosive arthritis at the left first metatarsophalangeal and interphalangeal joints. 3. Sacroiliac joints: Mild sclerosis, likely degenerative. 4. Lumbar spine: Mild degeneration. Dictated by Ash Moreira MD (resident). I, Dr. CONRAD GONZALES MD have personally reviewed and interpreted this examination/study. This report was electronically signed by CONRAD GONZALES MD on04/26/2019 2:11 PM . Judah Norton MD DIAGNOSTIC IMAGING O RDERABLES * XR HAND RIGHT 3VW OR MORE (04/26/2019 1:21 PM CDT) Anatomical Region Laterality Modality Wrist / Hand Radiographic Toma ging 04/26/2019 1:20 PM CDT Impressions 04/26/2019 2:11 PM CDT IMPRESSION: 1. Right and left hands: Mild to moderate erosive arthritis affecting several metacarpal phalangeal and interphalangeal joints bilaterally. The appearance is consistent with the known history of gout. 2. 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 Moderate to severe erosive arthritis at the right first metatarsophalangeal joint and mild erosive arthritis at the left first metatarsophalangeal and interphalangeal joints. 3. Sacroiliac joints: Mild sclerosis, likely degenerative. 4. Lumbar spine: Mild degeneration. Dictated by Ash Moreira MD (resident). I, Dr. CONRAD GONZALES MD have personally reviewed and interpreted this examination/study. This report was electronically signed by CONRAD GONZALES MD ??on 04/26/2019 2:11 PM . Narrative 04/26/2019 2:11 PM CDT EXAMINATION: 1. Left hand, 3 views 2. Right hand, 3 views 3. Left foot, 3 views 4. Right foot, 3 views 5. SI joints, 3 views 6. Lumbar spine 4 views HISTORY: 48 yo with gout, diffuse arthralgia and positive Shawn's test. COMPARISON: No prior study is available for comparison. FINDINGS: 1. Left hand: No acute fracture or dislocation. There are erosions at multiple joints including at the first, second, third, and fifth metacarpophalangeal and second through fourth digit proximal interphalangeal joints. The joint spaces are mostly preserved, except for mild narrowing at the third digit proximal interphalangeal joint. There is mild arthritic change at a few distal interphalangeal joints. The bone density is normal. Vascular calcifications are noted, otherwise the soft tissues are unremarkable. 2. Right hand: No acute fracture or dislocation. There are erosions at several joints including the second through fifth metacarpophalangeal, third and fourth proximal interphalangeal, and second, third, and fifth digit distal interphalangeal. The joint spaces are relatively preserved. A few small osteophytes are noted. Bone density is normal. Vascular calcification is noted, otherwise the soft tissues are unremarkable. 3. Right foot: There are chronic fracture deformities of the third through fifth metatarsals with sclerosis. There is severe arthritis at the second through fifth tarsometatarsal joints with erosions, sclerosis, bony production, and on the lateral view mild subluxation. ?? A few additional scattered erosions are noted in the midfoot. There is moderate to severe erosive arthritis at the first metatarsophalangeal joint with sclerosis and osteophytes. There is soft tissue swelling. A small plantar calcaneal is seen. 4. Left foot: Chronic fracture deformities are seen at the proximal aspects of the second through fifth metatarsals. There is sclerosis in these bones. There is moderate arthritis at the second through fifth tarsometatarsal joints with articular surface irregularity, sclerosis, and cyst/erosions. There is mild arthritis at the first metatarsophalangeal joint and first interphalangeal joint with a few erosions. There is no dislocation. Vascular calcification and mild soft tissue swelling are noted. 5. SI joints: There is mild sclerosis along the mid portions of both sacroiliac joints, right greater than left. This may be degenerative. No erosion, widening, narrowing, or ankylosis is seen on either side. There is no fracture. Lumbar spine: There is mild disc space narrowing with endplate sclerosis and small osteophyte formation at L5-S1. Endplate osteophytes are seen at a few other levels without disc space narrowing. There is mild sclerosis of the lower lumbar facets. No fracture seen. There is no subluxation with flexion or extension. Vascular calcification is evident. Procedure Note Conrad Gonzales MD - 04/26/2019 EXAMINATION: 1. Left hand, 3 views 2. Right hand, 3 views 3. Left foot, 3 views 4. Right foot, 3 views 5. SI joints, 3 views 6. Lumbar spine 4 views HISTORY: 48 yo with gout, diffuse arthralgia and positive Shawn'stest. COMPARISON: No prior study is available for comparison. FINDINGS: 1. Left hand: No acute fracture or dislocation. There are erosions at multiple joints including at the first, second, third, and fifth metacarpophalangeal and second through fourth digit proximal interphalangeal joints. The joint spaces are mostly preserved, exceptfor mild narrowing at the third digit proximal interphalangeal joint. Thereis mild arthritic change at a few distal interphalangeal joints. The bone density is normal. Vascular calcifications are noted, otherwise the soft tissues are unremarkable. 2. Right hand: No acute fracture or dislocation. There are erosions at several joints including the second through fifth metacarpophalangeal, third and fourth proximal interphalangeal, and second, third, and fifth digit distal interphalangeal. The joint spaces are relatively preserved.A few small osteophytes are noted. Bone density is normal. Vascular calcification is noted, otherwise the soft tissues are unremarkable. 3. Right foot: There are chronic fracture deformities of the thirdthrough fifth metatarsals with sclerosis. There is severe arthritis at thesecond through fifth tarsometatarsal joints with erosions, sclerosis, bony production, and on the lateral view mild subluxation. A few additional scattered erosions are noted in the midfoot. There is moderate to severe erosive arthritis at the first metatarsophalangeal joint with sclerosis and osteophytes. There is soft tissue swelling. A small plantarcalcaneal is seen. 4. Left foot: Chronic fracture deformities are seen at the proximal aspects of the second through fifth metatarsals. There is sclerosis in these bones. There is moderate arthritis at the second through fifth tarsometatarsal joints with articular surface irregularity, sclerosis,and cyst/erosions. There is mild arthritis at the first metatarsophalangeal joint and first interphalangeal joint with a few erosions. There is no dislocation. Vascular calcification and mild soft tissue swelling are noted. 5. SI joints: There is mild sclerosis along the mid portions of both sacroiliac joints, right greater than left. This may be degenerative. No erosion, widening, narrowing, or ankylosis is seen on either side. There is no fracture. Lumbar spine: There is mild disc space narrowing with endplate sclerosis and small osteophyte formation at L5-S1. Endplate osteophytes are seen at a few other levels without disc space narrowing. There is mild sclerosis ofthe lower lumbar facets. No fracture seen. There is no subluxation with flexion or extension. Vascular calcification is evident. IMPRESSION: 1. Right and left hands: Mild to moderate erosive arthritis affecting several metacarpal phalangeal and interphalangeal joints bilaterally.The appearance is consistent with the known history of gout. 2. 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 Moderate to severe erosive arthritis at the right first metatarsophalangeal joint and mild erosive arthritis at the left first metatarsophalangeal and interphalangeal joints. 3. Sacroiliac joints: Mild sclerosis, likely degenerative. 4. Lumbar spine: Mild degeneration. Dictated by Ash Moreira MD (resident). I, Dr. CONRAD GONZALES MD have personally reviewed and interpreted this examination/study. This report was electronically signed by CONRAD GONZALES MD on04/26/2019 2:11 PM . Judah Norton MD DIAGNOSTIC IMAGING O RDERABLES * XR HAND LEFT 3VW OR MORE (04/26/2019 1:21 PM CDT) Anatomical Region Laterality Modality Wrist / Hand Radiographic Toma ging 04/26/2019 1:20 PM CDT Impressions 04/26/2019 2:11 PM CDT IMPRESSION: 1. Right and left hands: Mild to moderate erosive arthritis affecting several metacarpal phalangeal and interphalangeal joints bilaterally. The appearance is consistent with the known history of gout. 2. 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 Moderate to severe erosive arthritis at the right first metatarsophalangeal joint and mild erosive arthritis at the left first metatarsophalangeal and interphalangeal joints. 3. Sacroiliac joints: Mild sclerosis, likely degenerative. 4. Lumbar spine: Mild degeneration. Dictated by Ash Moreira MD (resident). I, Dr. CONRAD GONZALES MD have personally reviewed and interpreted this examination/study. This report was electronically signed by CONRAD GONZALES MD ??on 04/26/2019 2:11 PM . Narrative 04/26/2019 2:11 PM CDT EXAMINATION: 1. Left hand, 3 views 2. Right hand, 3 views 3. Left foot, 3 views 4. Right foot, 3 views 5. SI joints, 3 views 6. Lumbar spine 4 views HISTORY: 48 yo with gout, diffuse arthralgia and positive Shawn's test. COMPARISON: No prior study is available for comparison. FINDINGS: 1. Left hand: No acute fracture or dislocation. There are erosions at multiple joints including at the first, second, third, and fifth metacarpophalangeal and second through fourth digit proximal interphalangeal joints. The joint spaces are mostly preserved, except for mild narrowing at the third digit proximal interphalangeal joint. There is mild arthritic change at a few distal interphalangeal joints. The bone density is normal. Vascular calcifications are noted, otherwise the soft tissues are unremarkable. 2. Right hand: No acute fracture or dislocation. There are erosions at several joints including the second through fifth metacarpophalangeal, third and fourth proximal interphalangeal, and second, third, and fifth digit distal interphalangeal. The joint spaces are relatively preserved. A few small osteophytes are noted. Bone density is normal. Vascular calcification is noted, otherwise the soft tissues are unremarkable. 3. Right foot: There are chronic fracture deformities of the third through fifth metatarsals with sclerosis. There is severe arthritis at the second through fifth tarsometatarsal joints with erosions, sclerosis, bony production, and on the lateral view mild subluxation. ?? A few additional scattered erosions are noted in the midfoot. There is moderate to severe erosive arthritis at the first metatarsophalangeal joint with sclerosis and osteophytes. There is soft tissue swelling. A small plantar calcaneal is seen. 4. Left foot: Chronic fracture deformities are seen at the proximal aspects of the second through fifth metatarsals. There is sclerosis in these bones. There is moderate arthritis at the second through fifth tarsometatarsal joints with articular surface irregularity, sclerosis, and cyst/erosions. There is mild arthritis at the first metatarsophalangeal joint and first interphalangeal joint with a few erosions. There is no dislocation. Vascular calcification and mild soft tissue swelling are noted. 5. SI joints: There is mild sclerosis along the mid portions of both sacroiliac joints, right greater than left. This may be degenerative. No erosion, widening, narrowing, or ankylosis is seen on either side. There is no fracture. Lumbar spine: There is mild disc space narrowing with endplate sclerosis and small osteophyte formation at L5-S1. Endplate osteophytes are seen at a few other levels without disc space narrowing. There is mild sclerosis of the lower lumbar facets. No fracture seen. There is no subluxation with flexion or extension. Vascular calcification is evident. Procedure Note Conrad Gonzales MD - 04/26/2019 EXAMINATION: 1. Left hand, 3 views 2. Right hand, 3 views 3. Left foot, 3 views 4. Right foot, 3 views 5. SI joints, 3 views 6. Lumbar spine 4 views HISTORY: 48 yo with gout, diffuse arthralgia and positive Shawn'stest. COMPARISON: No prior study is available for comparison. FINDINGS: 1. Left hand: No acute fracture or dislocation. There are erosions at multiple joints including at the first, second, third, and fifth metacarpophalangeal and second through fourth digit proximal interphalangeal joints. The joint spaces are mostly preserved, exceptfor mild narrowing at the third digit proximal interphalangeal joint. Thereis mild arthritic change at a few distal interphalangeal joints. The bone density is normal. Vascular calcifications are noted, otherwise the soft tissues are unremarkable. 2. Right hand: No acute fracture or dislocation. There are erosions at several joints including the second through fifth metacarpophalangeal, third and fourth proximal interphalangeal, and second, third, and fifth digit distal interphalangeal. The joint spaces are relatively preserved.A few small osteophytes are noted. Bone density is normal. Vascular calcification is noted, otherwise the soft tissues are unremarkable. 3. Right foot: There are chronic fracture deformities of the thirdthrough fifth metatarsals with sclerosis. There is severe arthritis at thesecond through fifth tarsometatarsal joints with erosions, sclerosis, bony production, and on the lateral view mild subluxation. A few additional scattered erosions are noted in the midfoot. There is moderate to severe erosive arthritis at the first metatarsophalangeal joint with sclerosis and osteophytes. There is soft tissue swelling. A small plantarcalcaneal is seen. 4. Left foot: Chronic fracture deformities are seen at the proximal aspects of the second through fifth metatarsals. There is sclerosis in these bones. There is moderate arthritis at the second through fifth tarsometatarsal joints with articular surface irregularity, sclerosis,and cyst/erosions. There is mild arthritis at the first metatarsophalangeal joint and first interphalangeal joint with a few erosions. There is no dislocation. Vascular calcification and mild soft tissue swelling are noted. 5. SI joints: There is mild sclerosis along the mid portions of both sacroiliac joints, right greater than left. This may be degenerative. No erosion, widening, narrowing, or ankylosis is seen on either side. There is no fracture. Lumbar spine: There is mild disc space narrowing with endplate sclerosis and small osteophyte formation at L5-S1. Endplate osteophytes are seen at a few other levels without disc space narrowing. There is mild sclerosis ofthe lower lumbar facets. No fracture seen. There is no subluxation with flexion or extension. Vascular calcification is evident. IMPRESSION: 1. Right and left hands: Mild to moderate erosive arthritis affecting several metacarpal phalangeal and interphalangeal joints bilaterally.The appearance is consistent with the known history of gout. 2. 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 Moderate to severe erosive arthritis at the right first metatarsophalangeal joint and mild erosive arthritis at the left first metatarsophalangeal and interphalangeal joints. 3. Sacroiliac joints: Mild sclerosis, likely degenerative. 4. Lumbar spine: Mild degeneration. Dictated by Ash Moreira MD (resident). Dr. CONRAD Champion MD have personally reviewed and interpreted this examination/study. This report was electronically signed by CONRAD GONZALES MD on04/26/2019 2:11 PM . Judah Norton MD DIAGNOSTIC IMAGING O RDERABLES * XR SI JOINTS 3VW OR MORE (04/26/2019 1:21 PM CDT) Anatomical Region Laterality Modality Pelvis, Lower Extremity [facility] 04/26/2019 1:20 PM CDT Impressions 04/26/2019 2:11 PM CDT IMPRESSION: 1. Right and left hands: Mild to moderate erosive arthritis affecting several metacarpal phalangeal and interphalangeal joints bilaterally. The appearance is consistent with the known history of gout. 2. 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 Moderate to severe erosive arthritis at the right first metatarsophalangeal joint and mild erosive arthritis at the left first metatarsophalangeal and interphalangeal joints. 3. Sacroiliac joints: Mild sclerosis, likely degenerative. 4. Lumbar spine: Mild degeneration. Dictated by Ash Moreira MD (resident). I, Dr. CONRAD GONZALES MD have personally reviewed and interpreted this examination/study. This report was electronically signed by CONRAD GONZALES MD ??on 04/26/2019 2:11 PM . Narrative 04/26/2019 2:11 PM CDT EXAMINATION: 1. Left hand, 3 views 2. Right hand, 3 views 3. Left foot, 3 views 4. Right foot, 3 views 5. SI joints, 3 views 6. Lumbar spine 4 views HISTORY: 48 yo with gout, diffuse arthralgia and positive Shawn's test. COMPARISON: No prior study is available for comparison. FINDINGS: 1. Left hand: No acute fracture or dislocation. There are erosions at multiple joints including at the first, second, third, and fifth metacarpophalangeal and second through fourth digit proximal interphalangeal joints. The joint spaces are mostly preserved, except for mild narrowing at the third digit proximal interphalangeal joint. There is mild arthritic change at a few distal interphalangeal joints. The bone density is normal. Vascular calcifications are noted, otherwise the soft tissues are unremarkable. 2. Right hand: No acute fracture or dislocation. There are erosions at several joints including the second through fifth metacarpophalangeal, third and fourth proximal interphalangeal, and second, third, and fifth digit distal interphalangeal. The joint spaces are relatively preserved. A few small osteophytes are noted. Bone density is normal. Vascular calcification is noted, otherwise the soft tissues are unremarkable. 3. Right foot: There are chronic fracture deformities of the third through fifth metatarsals with sclerosis. There is severe arthritis at the second through fifth tarsometatarsal joints with erosions, sclerosis, bony production, and on the lateral view mild subluxation. ?? A few additional scattered erosions are noted in the midfoot. There is moderate to severe erosive arthritis at the first metatarsophalangeal joint with sclerosis and osteophytes. There is soft tissue swelling. A small plantar calcaneal is seen. 4. Left foot: Chronic fracture deformities are seen at the proximal aspects of the second through fifth metatarsals. There is sclerosis in these bones. There is moderate arthritis at the second through fifth tarsometatarsal joints with articular surface irregularity, sclerosis, and cyst/erosions. There is mild arthritis at the first metatarsophalangeal joint and first interphalangeal joint with a few erosions. There is no dislocation. Vascular calcification and mild soft tissue swelling are noted. 5. SI joints: There is mild sclerosis along the mid portions of both sacroiliac joints, right greater than left. This may be degenerative. No erosion, widening, narrowing, or ankylosis is seen on either side. There is no fracture. Lumbar spine: There is mild disc space narrowing with endplate sclerosis and small osteophyte formation at L5-S1. Endplate osteophytes are seen at a few other levels without disc space narrowing. There is mild sclerosis of the lower lumbar facets. No fracture seen. There is no subluxation with flexion or extension. Vascular calcification is evident. Procedure Note Conrad Gonzales MD - 04/26/2019 EXAMINATION: 1. Left hand, 3 views 2. Right hand, 3 views 3. Left foot, 3 views 4. Right foot, 3 views 5. SI joints, 3 views 6. Lumbar spine 4 views HISTORY: 48 yo with gout, diffuse arthralgia and positive Shawn'stest. COMPARISON: No prior study is available for comparison. FINDINGS: 1. Left hand: No acute fracture or dislocation. There are erosions at multiple joints including at the first, second, third, and fifth metacarpophalangeal and second through fourth digit proximal interphalangeal joints. The joint spaces are mostly preserved, exceptfor mild narrowing at the third digit proximal interphalangeal joint. Thereis mild arthritic change at a few distal interphalangeal joints. The bone density is normal. Vascular calcifications are noted, otherwise the soft tissues are unremarkable. 2. Right hand: No acute fracture or dislocation. There are erosions at several joints including the second through fifth metacarpophalangeal, third and fourth proximal interphalangeal, and second, third, and fifth digit distal interphalangeal. The joint spaces are relatively preserved.A few small osteophytes are noted. Bone density is normal. Vascular calcification is noted, otherwise the soft tissues are unremarkable. 3. Right foot: There are chronic fracture deformities of the thirdthrough fifth metatarsals with sclerosis. There is severe arthritis at thesecond through fifth tarsometatarsal joints with erosions, sclerosis, bony production, and on the lateral view mild subluxation. A few additional scattered erosions are noted in the midfoot. There is moderate to severe erosive arthritis at the first metatarsophalangeal joint with sclerosis and osteophytes. There is soft tissue swelling. A small plantarcalcaneal is seen. 4. Left foot: Chronic fracture deformities are seen at the proximal aspects of the second through fifth metatarsals. There is sclerosis in these bones. There is moderate arthritis at the second through fifth tarsometatarsal joints with articular surface irregularity, sclerosis,and cyst/erosions. There is mild arthritis at the first metatarsophalangeal joint and first interphalangeal joint with a few erosions. There is no dislocation. Vascular calcification and mild soft tissue swelling are noted. 5. SI joints: There is mild sclerosis along the mid portions of both sacroiliac joints, right greater than left. This may be degenerative. No erosion, widening, narrowing, or ankylosis is seen on either side. There is no fracture. Lumbar spine: There is mild disc space narrowing with endplate sclerosis and small osteophyte formation at L5-S1. Endplate osteophytes are seen at a few other levels without disc space narrowing. There is mild sclerosis ofthe lower lumbar facets. No fracture seen. There is no subluxation with flexion or extension. Vascular calcification is evident. IMPRESSION: 1. Right and left hands: Mild to moderate erosive arthritis affecting several metacarpal phalangeal and interphalangeal joints bilaterally.The appearance is consistent with the known history of gout. 2. 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 Moderate to severe erosive arthritis at the right first metatarsophalangeal joint and mild erosive arthritis at the left first metatarsophalangeal and interphalangeal joints. 3. Sacroiliac joints: Mild sclerosis, likely degenerative. 4. Lumbar spine: Mild degeneration. Dictated by Ash Moreira MD (resident). I, Dr. CONRAD GONZALES MD have personally reviewed and interpreted this examination/study. This report was electronically signed by CONRAD GONZALES MD on04/26/2019 2:11 PM . Judah Norton MD DIAGNOSTIC IMAGING O RDERABLES * XR LUMBAR SPINE 4VW OR MORE (04/26/2019 1:21 PM CDT) Anatomical Region Laterality Modality Spine Radiographic Toma ging 04/26/2019 1:20 PM CDT Impressions 04/26/2019 2:11 PM CDT IMPRESSION: 1. Right and left hands: Mild to moderate erosive arthritis affecting several metacarpal phalangeal and interphalangeal joints bilaterally. The appearance is consistent with the known history of gout. 2. 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 Moderate to severe erosive arthritis at the right first metatarsophalangeal joint and mild erosive arthritis at the left first metatarsophalangeal and interphalangeal joints. 3. Sacroiliac joints: Mild sclerosis, likely degenerative. 4. Lumbar spine: Mild degeneration. Dictated by Ash Moreira MD (resident). I, Dr. CONRAD GONZALES MD have personally reviewed and interpreted this examination/study. This report was electronically signed by CONRAD GONZALES MD ??on 04/26/2019 2:11 PM . Narrative 04/26/2019 2:11 PM CDT EXAMINATION: 1. Left hand, 3 views 2. Right hand, 3 views 3. Left foot, 3 views 4. Right foot, 3 views 5. SI joints, 3 views 6. Lumbar spine 4 views HISTORY: 48 yo with gout, diffuse arthralgia and positive Shawn's test. COMPARISON: No prior study is available for comparison. FINDINGS: 1. Left hand: No acute fracture or dislocation. There are erosions at multiple joints including at the first, second, third, and fifth metacarpophalangeal and second through fourth digit proximal interphalangeal joints. The joint spaces are mostly preserved, except for mild narrowing at the third digit proximal interphalangeal joint. There is mild arthritic change at a few distal interphalangeal joints. The bone density is normal. Vascular calcifications are noted, otherwise the soft tissues are unremarkable. 2. Right hand: No acute fracture or dislocation. There are erosions at several joints including the second through fifth metacarpophalangeal, third and fourth proximal interphalangeal, and second, third, and fifth digit distal interphalangeal. The joint spaces are relatively preserved. A few small osteophytes are noted. Bone density is normal. Vascular calcification is noted, otherwise the soft tissues are unremarkable. 3. Right foot: There are chronic fracture deformities of the third through fifth metatarsals with sclerosis. There is severe arthritis at the second through fifth tarsometatarsal joints with erosions, sclerosis, bony production, and on the lateral view mild subluxation. ?? A few additional scattered erosions are noted in the midfoot. There is moderate to severe erosive arthritis at the first metatarsophalangeal joint with sclerosis and osteophytes. There is soft tissue swelling. A small plantar calcaneal is seen. 4. Left foot: Chronic fracture deformities are seen at the proximal aspects of the second through fifth metatarsals. There is sclerosis in these bones. There is moderate arthritis at the second through fifth tarsometatarsal joints with articular surface irregularity, sclerosis, and cyst/erosions. There is mild arthritis at the first metatarsophalangeal joint and first interphalangeal joint with a few erosions. There is no dislocation. Vascular calcification and mild soft tissue swelling are noted. 5. SI joints: There is mild sclerosis along the mid portions of both sacroiliac joints, right greater than left. This may be degenerative. No erosion, widening, narrowing, or ankylosis is seen on either side. There is no fracture. Lumbar spine: There is mild disc space narrowing with endplate sclerosis and small osteophyte formation at L5-S1. Endplate osteophytes are seen at a few other levels without disc space narrowing. There is mild sclerosis of the lower lumbar facets. No fracture seen. There is no subluxation with flexion or extension. Vascular calcification is evident. Procedure Note Conrad Gonzales MD - 04/26/2019 EXAMINATION: 1. Left hand, 3 views 2. Right hand, 3 views 3. Left foot, 3 views 4. Right foot, 3 views 5. SI joints, 3 views 6. Lumbar spine 4 views HISTORY: 48 yo with gout, diffuse arthralgia and positive Shawn'stest. COMPARISON: No prior study is available for comparison. FINDINGS: 1. Left hand: No acute fracture or dislocation. There are erosions at multiple joints including at the first, second, third, and fifth metacarpophalangeal and second through fourth digit proximal interphalangeal joints. The joint spaces are mostly preserved, exceptfor mild narrowing at the third digit proximal interphalangeal joint. Thereis mild arthritic change at a few distal interphalangeal joints. The bone density is normal. Vascular calcifications are noted, otherwise the soft tissues are unremarkable. 2. Right hand: No acute fracture or dislocation. There are erosions at several joints including the second through fifth metacarpophalangeal, third and fourth proximal interphalangeal, and second, third, and fifth digit distal interphalangeal. The joint spaces are relatively preserved.A few small osteophytes are noted. Bone density is normal. Vascular calcification is noted, otherwise the soft tissues are unremarkable. 3. Right foot: There are chronic fracture deformities of the thirdthrough fifth metatarsals with sclerosis. There is severe arthritis at thesecond through fifth tarsometatarsal joints with erosions, sclerosis, bony production, and on the lateral view mild subluxation. A few additional scattered erosions are noted in the midfoot. There is moderate to severe erosive arthritis at the first metatarsophalangeal joint with sclerosis and osteophytes. There is soft tissue swelling. A small plantarcalcaneal is seen. 4. Left foot: Chronic fracture deformities are seen at the proximal aspects of the second through fifth metatarsals. There is sclerosis in these bones. There is moderate arthritis at the second through fifth tarsometatarsal joints with articular surface irregularity, sclerosis,and cyst/erosions. There is mild arthritis at the first metatarsophalangeal joint and first interphalangeal joint with a few erosions. There is no dislocation. Vascular calcification and mild soft tissue swelling are noted. 5. SI joints: There is mild sclerosis along the mid portions of both sacroiliac joints, right greater than left. This may be degenerative. No erosion, widening, narrowing, or ankylosis is seen on either side. There is no fracture. Lumbar spine: There is mild disc space narrowing with endplate sclerosis and small osteophyte formation at L5-S1. Endplate osteophytes are seen at a few other levels without disc space narrowing. There is mild sclerosis ofthe lower lumbar facets. No fracture seen. There is no subluxation with flexion or extension. Vascular calcification is evident. IMPRESSION: 1. Right and left hands: Mild to moderate erosive arthritis affecting several metacarpal phalangeal and interphalangeal joints bilaterally.The appearance is consistent with the known history of gout. 2. 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 Moderate to severe erosive arthritis at the right first metatarsophalangeal joint and mild erosive arthritis at the left first metatarsophalangeal and interphalangeal joints. 3. Sacroiliac joints: Mild sclerosis, likely degenerative. 4. Lumbar spine: Mild degeneration. Dictated by Ash Moreira MD (resident). I, Dr. CONRAD GONZALES MD have personally reviewed and interpreted this examination/study. This report was electronically signed by CONRAD GONZALES MD on04/26/2019 2:11 PM . Judah Norton MD DIAGNOSTIC IMAGING O RDERABLES * (ABNORMAL) URINALYSIS W/MICROSCOPIC NO CULTURE (04/26/2019 12:42 PM CDT) Color UA Yellow Straw, Yellow, Colorless 04/26/2019 1:31 PM [facility] Clarity UA Slt Cloudy Clear, Slt Cloudy 04/26/2019 1:31 PM [facility] Specific [place] UA 1.013 1.005 - 1.030 04/26/2019 1:31 PM [facility] pH UA 5.0 5.0 - 8.0 pH 04/26/2019 1:31 PM [facility] Protein UA 2+(A) Negative mg/dL 04/26/2019 1:31 PM [facility] Glucose UA 1+(A) Negative mg/dL 04/26/2019 1:31 PM [facility] Ketone UA Negative Negative mg/dL 04/26/2019 1:31 PM [facility] Bilirubin UA Negative Negative mg/dL 04/26/2019 1:31 PM [facility] Blood UA Negative Negative 04/26/2019 1:31 PM [facility] Nitrite UA Negative Negative 04/26/2019 1:31 PM [facility] Leukocyte Esterase Negative Negative 04/26/2019 1:31 PM CDT [facility] Urobilinogen UA Negative Negative mg/dL 04/26/2019 1:31 PM CDT [facility] RBC UA 0-2 None Seen, 0-2, 3-5 /HPF 04/26/2019 1:31 PM CDT [facility] WBC UA 0-5 None Seen, 0-5 /HPF 04/26/2019 1:31 PM CDT [facility] Squamous Epithelial Cells UA 0-2 None Seen, 0-2 /HPF 04/26/2019 1:31 PM CDT [facility] Mucus UA 1+ None, 1+ /LPF 04/26/2019 1:31 PM CDT [facility] Hyaline Casts UA 11-20(A) None Seen, 0-2 /LPF 04/26/2019 1:31 PM CDT [facility] Urine URINE SPECIMEN OBTAINED BY CLEAN CATCH PROCEDURE / Unknown Collection / Unknown 04/26/2019 12:42 PM CDT 04/26/2019 1:18 PM CDT Narrative [facility] - 04/26/2019 1:31 PM CDT Judah Norton MD LAB - URINALYSIS ORD ERABLES [facility] [address] [place] [address] * CYCLIC CITRUL PEPTIDE ANTIBODY IGG/IGA (CCP) (04/26/2019 12:42 PM CDT) CCP Antibodies IgG/IgA 17 0 - 19 units 04/29/2019 9:06 PM CDT [facility] ([facility]) Comment: ?Negative ? <20 ?Weak positive ?20 - 39 ?Moderate positive ??40 - 59 ?Strong positive ?>59 Blood BLOOD SPECIMEN / Unknown Lab Venipuncture / Unknown 04/26/2019 12:42 PM CDT 04/26/2019 1:18 PM CDT Narrative [facility] ([facility]) - 04/29/2019 9:06 PM CDT Performed at: ??01 - [facility] ??[id number] Doughnut Fryer: Con Grimaldo MD, Phone: ??[phone] Judah Norton MD LAB - SEROLOGY ORDER ROVERTO Performing Organization Address City/[facility]/ZIP Co de Phone Number [facility] ([facility]) [address] [id number] * RHEUMATOID FACTOR BLOOD QUANTITATIVE (04/26/2019 12:42 PM CDT) Rheumatoid Factor <15 <30 IU/mL 04/26/2019 2:34 PM CDT [facility] Blood BLOOD SPECIMEN / Unknown Lab Venipuncture / Unknown 04/26/2019 12:42 PM CDT 04/26/2019 1:18 PM CDT Judah Norton MD LAB - CHEMISTRY SUSANNAH LEONE Performing Organization Address [facility] Co de Phone Number [address] [phone] * C-REACTIVE PROTEIN (04/26/2019 12:42 PM CDT) C-Reactive Protein <0.5 <=0.5 mg/dL 04/26/2019 2:21 PM CDT [facility] Blood BLOOD SPECIMEN / Unknown Lab Venipuncture / Unknown 04/26/2019 12:42 PM CDT 04/26/2019 1:19 PM CDT Judah Norton MD LAB - CHEMISTRY SUSANNAH LEONE Performing Organization Address City/[facility]/ZIP Co de Phone Number [address] [place] [phone] * SHAWN BLOOD SCREEN W/REFLEX TITER (04/26/2019 12:42 PM CDT) SHAWN Negative 04/27/2019 3:07 PM CDT [facility] ([facility]) Comment: ? Negative ?? <1:80 ? Borderline ??1:80 ? Positive ?? >1:80 Blood BLOOD SPECIMEN / Unknown Lab Venipuncture / Unknown 04/26/2019 12:42 PM CDT 04/26/2019 1:18 PM CDT Narrative [facility] ([facility]) - 04/27/2019 3:07 PM CDT Performed at: ??01 - [facility] [address] [place], [place] ??[id number] Doughnut Fryer: Mehdi Del Angel PhD, Phone: ??[phone] Judah Norton MD LAB - CHEMISTRY SUSANNAH LEONE [facility] ([facility]) [address] [place] [address] * SS-B (SJOGREN'S) ANTIBODY (04/26/2019 12:42 PM CDT) SS-B LA Antibody 2.8 0.0 - 19.9 Units 04/30/2019 9:45 AM CDT [facility] Comment: JOSE ENRIQUE Antibody Numeric Result Interpretation: ?<20.0 Units: ??Negative ?20.0 - 39.0 Units: ??Weakly Positive ?>39.0 Units: ??Positive ? Blood BLOOD SPECIMEN / Unknown Lab Venipuncture / Unknown 04/26/2019 12:42 PM CDT 04/26/2019 1:19 PM CDT Judah Norton MD LAB - CHEMISTRY SUSANNAH LEONE Performing Organization Address [facility] Co de Phone Number [facility] [address] [phone] * SS-A (SJOGREN'S) ANTIBODY (04/26/2019 12:42 PM CDT) SS-A (Ro) Antibody 2.7 0.0 - 19.9 Units 04/30/2019 9:45 AM CDT [facility] Comment: JOSE ENRIQUE Antibody Numeric Result Interpretation: ?<20.0 Units: ??Negative ?20.0 - 39.0 Units: ??Weakly Positive ?>39.0 Units: ??Positive ? Blood BLOOD SPECIMEN / Unknown Lab Venipuncture / Unknown 04/26/2019 12:42 PM CDT 04/26/2019 1:19 PM CDT Judah Norton MD LAB - CHEMISTRY SUSANNAH LEONE Performing Organization Address [facility] de Phone Number [address] [phone] * ALDOLASE (04/26/2019 12:42 PM CDT) Aldolase 6.9 3.3 - 10.3 U/L 04/29/2019 3:08 PM CDT [facility] ([facility]) Blood BLOOD SPECIMEN / Unknown Lab Venipuncture / Unknown 04/26/2019 12:42 PM CDT 04/26/2019 1:18 PM CDT Narrative [facility] ([facility]) - 04/29/2019 3:08 PM CDT Performed at: ??01 - [facility] [address], [place], [place] ??[id number] Doughnut Fryer: Mehdi Del Angel PhD, Phone: ??[phone] Judah Norton MD LAB - CHEMISTRY SUSANNAH LEONE Performing Organization Address City/[facility]/ZIP Co de Phone Number [facility] ([facility]) [address] [place] [address] * (ABNORMAL) ERYTHROCYTE SEDIMENTATION RATE (04/26/2019 12:42 PM CDT) Erythrocyte Sedimentation Rate Westergren 34(H) 0 - 20 MM/HR 04/26/2019 1:31 PM CDT [facility] Blood BLOOD SPECIMEN / Unknown Lab Venipuncture / Unknown 04/26/2019 12:42 PM CDT 04/26/2019 1:19 PM CDT Judah Norton MD LAB - HEMATOLOGY HUAN WALTON [address] [phone] * (ABNORMAL) LDH BLOOD (04/26/2019 12:42 PM CDT) Pathologist [facility] LDH Total 268(H) 125 - 243 Units/L 04/26/2019 1:43 PM CDT [facility] Blood BLOOD SPECIMEN / Unknown Lab Venipuncture / Unknown 04/26/2019 12:42 PM CDT 04/26/2019 1:19 PM CDT Judah Norton MD LAB - CHEMISTRY SUSANNAH LEONE Performing Organization Address City/[facility]/ZIP Co de Phone Number [address] [phone] * (ABNORMAL) CK BLOOD (04/26/2019 12:42 PM CDT) CK Total 280(H) 30 - 200 Units/L 04/26/2019 1:43 PM CDT [facility] Blood BLOOD SPECIMEN / Unknown Lab Venipuncture / Unknown 04/26/2019 12:42 PM CDT 04/26/2019 1:19 PM CDT Judah Norton MD LAB - CHEMISTRY ORDIsaias LEONE [address] [phone] * CARDIAC PROCEDURE ORDER (11/27/2018 1:35 AM CDT) Narrative 11/27/2018 1:35 AM CDT Ordered by an unspecified provider. Scanned Document CARDIAC SERVICES ORD ERABLES * CARDIAC RHYTHM STRIP ORDER (11/26/2018 9:10 PM CDT) Narrative 11/26/2018 9:10 PM CDT Ordered by an unspecified provider. Scanned Document CARDIAC SERVICES ORD ERABLES * (ABNORMAL) GLUCOSE - POINT OF CARE (11/23/2018 2:11 PM CDT) Only the most recent of10 resultswithin the time period is included. Glucose WB/POC 192(H) 70 - 106 mg/dL 11/26/2018 10:39 AM CDT [facility] Specimen Type UNKNOWN SAMPLE TYPE 11/26/2018 10:39 AM CDT [facility] Blood BLOOD SPECIMEN / Unknown 11/23/2018 2:11 PM CDT 11/26/2018 10:39 AM CDT Francisco Luque MD LAB - POINT OF CARE ORDERABLES [facility] [address] [id number] * (ABNORMAL) BASIC METABOLIC PANEL (CALCIUM TOTAL) (11/23/2018 3:25 AM CDT) Only the most recent of2 resultswithin the time period is included. Glucose 195(H) 74 - 106 mg/dL 11/23/2018 5:10 AM CDT [facility] Sodium 135(L) 136 - 145 mmol/L 11/23/2018 5:10 AM CDT [facility] Potassium 3.8 3.5 - 5.1 mmol/L 11/23/2018 5:10 AM CDT [facility] Chloride 104 98 - 107 mmol/L 11/23/2018 5:10 AM CDT [facility] CO2 23 23 - 31 mmol/L 11/23/2018 5:10 AM CDT [facility] Calcium 8.3(L) 8.4 - 10.2 mg/dL 11/23/2018 5:10 AM CDT [facility] Anion Gap 8 8 - 16 mmol/L 11/23/2018 5:10 AM CDT [facility] BUN 56(H) 8.4 - 25.7 mg/dL 11/23/2018 5:10 AM CDT [facility] Creatinine 2.74(H) 0.73 - 1.18 mg/dL 11/23/2018 5:10 AM CDT [facility] eGFR by MDRD 25(L) >60 mL/min/1.7 3m2 11/23/2018 5:10 AM CDT [facility] eGFR by MDRD 30(L) >60 mL/min/1.7 3m2 11/23/2018 5:10 AM CDT [facility] Blood BLOOD SPECIMEN / Unknown Venipuncture / Unknown 11/23/2018 3:25 AM CDT 11/23/2018 4:37 AM CDT Francisco Luque MD LAB - CHEMISTRY [facility] Organization Address City/State/ZIP Co de Phone Number [facility] [address] [place] [address] * CARDIAC CATH PROCEDURE (11/22/2018 12:00 PM CDT) 11/22/2018 12:0 0 PM CDT Narrative Procedure Note Francisco Luque MD - 11/23/2018 3:23 AM CDT [facility] CARDIAC CATHETERIZATION PATIENT: JUVENAL GARVIN MR#: [id number] ADMIT DATE: 11/22/2018 CSN: [id number] PROCEDURE DATE: 11/22/2018 :1970 PHYSICIAN: Francisco Luque Jr., MD ROOM: [facility] REFERRING PHYSICIAN: Francisco Luque Jr., MD PROCEDURE PERFORMED: 1. Left heart catheterization, selective coronary angiography. 2. Sequential stent implantation, right coronary artery. INDICATIONS: A 48-year-old diabetic patient with chronic kidney diseasestage 4. The patient has known coronary artery disease with previous stents tothe posterior descending branch of the right coronary artery. The patienthas recently developed recurrent symptoms. He underwent stress testing, whichwas abnormal. He was recommended for catheterization to evaluate hispreviously placed stents as well as for progression of disease. COMPLICATIONS: None. ANESTHESIA: 1% lidocaine local. Conscious sedation with Versed andfentanyl. Total sedation 2 mg Versed, 50 mcg fentanyl. Total sedation time is 30 minutes. DESCRIPTION OF PROCEDURE: After obtaining informed consent, the patient brought to the cardiac catheterization lab in the postabsorptive state. Sedation was instituted with Versed and fentanyl, and trained observerwas present throughout the case to monitor the patient under sedation.Sterile prep and drape of the right groin were performed followed by infiltrationof 1% lidocaine. A percutaneous Seldinger technique, introducer sheath wasplaced in right femoral artery. A 5-Ivorian #4 Kranthi left coronary catheterwas advanced in the left coronary ostium and left coronary arteriograms were performed in multiple projections. This catheter was removed and exchangedfor 5-Ivorian #4 Kranthi right coronary catheter, was advanced in the right coronary ostium. Right coronary arteriography was performed in multiple projections. This catheter was removed. The decision was made to proceedwith intervention and therefore no left ventriculogram was performed to avoid excess dye in this patient with severe kidney disease. The arterial sheathwas exchanged for 6-Ivorian sheath followed by advancement of a 6-Ivorian #4Judkins right guide to the right coronary ostium. Next, a 0.014 wire was advanceddown the right coronary artery followed by advancement of a 2.5 x 12 mm drug- eluting stent. This was positioned across the distal stenosis and wasdeployed with multiple inflations. The balloon was removed and replaced with asecond 2.5 x 12 mm drug-eluting stent. This was positioned in the mid rightcoronary across the RV marginal branch. The stent was deployed with multipleinflations as well. The balloon was removed and replaced with a 2.5 x 15 mmdrug-eluting stent, which was positioned in the proximal right coronary. This wasdeployed with multiple inflations as well. The balloon was removed. Angiographywas repeated. The guidewire was removed. Final angiograms were performed.The guiding catheter was removed. The arterial sheath was used to performfemoral arteriography, however, the sheath enters at the bifurcation of thecommon femoral artery, and therefore, it could not be pulled or removed with a closure system. The sheath was sutured in place and will be pulledmanually later. CASE DATA: Aortic blood pressure was 169/72. DESCRIPTION OF ANGIOGRAMS: 1. Left main coronary: Left main is a very short, almost dual left main. There is no stenosis of the very short left main. 2. Left anterior descending: Left anterior descending is amoderate-sized vessel, has some mild irregularities with no high-grade orflow-limiting lesions. 3. Circumflex artery: Circumflex artery is a moderate-sized nondominant system. It has some mild irregularities, but again has no high-gradeor flow-limiting lesions. 4. Right coronary artery: The right coronary artery is seen to contain previously placed stents in the proximal portion of the posterior descending artery. Injection of contrast reveals an [id number]% stenosis and mid 90% stenosis and a distal 99% stenosis. 5. Post intervention: Following the sequential stent implantation as described above, final angiography of the right coronary arteryreveals no residual stenosis at any site. There was no evidence ofdissection. There was brisk VIPUL grade 3 flow throughout the entire rightcoronary. 6. The previously placed posterior descending stent is widely patent withno restenosis. CONCLUSIONS: 1. No in-stent restenoses, posterior descending branch of right coronary artery. 2. Interval development of high-grade stenoses in the proximal, mid, and distal right coronary. 3. Mild irregularities of the LAD and circumflex with no high-grade orflow- limiting lesions seen. 4. Successful sequential stent implantation, right coronary artery withno residual stenosis, dissection, or thrombus formation with VIPUL grade3 flow. Thank you for the opportunity to participate in the care of this verypleasant gentleman. FRANCISCO LUQUE JR., MD RPR/MODL #: [id number] cc: Francisco Luque Jr., MD MEDICAL/SURGICAL CARDIAC CATHETERIZATION - DP Francisco Luque MD CARDIAC SERVICES ORD ERABLES [facility] * XR HANDS BILATERAL 2 VIEWS (03/25/2015 5:31 PM CDT) Anatomical Region Laterality Modality Wrist / Hand, Upper Extremity Ra diographic Imaging 03/25/2015 8:09 PM CDT Impressions 03/25/2015 8:17 PM CDT 1. ??No evidence of inflammatory arthritis involving spine, sacroiliac joints, hands, or feet. 2. ??Deformities involving left fourth metatarsal and right third metatarsal likely reflect previous fractures. ??The tarsometatarsal articulations are not well evaluated in either foot. 3. ??No substantial degenerative disc disease in the cervical or lumbosacral spine. ??Mild facet arthritis. 4. ??Mild degenerative changes of both sacroiliac joints. Narrative 03/25/2015 8:17 PM CDT BILATERAL HANDS, TWO VIEWS OF EACH BILATERAL FEET, TWO VIEWS EACH CERVICAL SPINE, THREE VIEWS LUMBOSACRAL SPINE, THREE VIEWS SACROILIAC JOINTS, THREE VIEWS HISTORY: Arthritis, pain. COMPARISON: None. FINDINGS: Bilateral hands: There is no fracture or dislocation. ??Alignment of both hands is normal. ??The joint spaces are normal. ??A well-circumscribed lucency at the base of the left index finger middle phalanx likely reflects small subchondral cyst. ??There are no periarticular erosions. Bilateral feet: There is an incompletely healed fracture of the left fourth metatarsal. ??No other fractures are seen. ??Visualized joint spaces are normal. ??There is deformity at the base of the right third metatarsal, which may reflect old fracture. ??Degenerative changes are seen at the first metatarsophalangeal joint. ??Tarsometatarsal articulations are not well evaluated in either foot. Cervical spine: There is normal alignment of the cervical spine, including the C1-C2 articulation. ??There is no prevertebral soft tissue swelling. ??Intervertebral disc spaces are maintained. ??There are mild facet degenerative changes. Lumbosacral spine: There is normal alignment of the lumbosacral spine. Vertebral body heights are maintained. ??Intervertebral disc spaces are maintained. ??There are multilevel facet degenerative changes. ??Apparent 4 cm hyperdensity in the left lower quadrant of the abdomen does not persist on sacroiliac joint radiographs and is likely artifactual. Sacroiliac joints: There are mild degenerative changes of both sacroiliac joints. ??There are no periarticular erosions or widening. Procedure Note Precious Keys MD - 03/25/2015 BILATERAL HANDS, TWO VIEWS OF EACH BILATERAL FEET, TWO VIEWS EACH CERVICAL SPINE, THREE VIEWS LUMBOSACRAL SPINE, THREE VIEWS SACROILIAC JOINTS, THREE VIEWS HISTORY: Arthritis, pain. COMPARISON: None. FINDINGS: Bilateral hands: There is no fracture or dislocation. Alignment of both hands is normal. The joint spaces are normal. A well-circumscribed lucency at the base of the left index finger middle phalanx likely reflects small subchondral cyst. There are no periarticular erosions. Bilateral feet: There is an incompletely healed fracture of the left fourth metatarsal. No other fractures are seen. Visualized joint spaces are normal. There is deformity at the base of the right third metatarsal, which may reflect old fracture. Degenerative changes are seen at the first metatarsophalangeal joint. Tarsometatarsal articulations are not well evaluated in either foot. Cervical spine: There is normal alignment of the cervical spine, including the C1-C2 articulation. There is no prevertebral soft tissue swelling. Intervertebral disc spaces are maintained. There are mild facet degenerative changes. Lumbosacral spine: There is normal alignment of the lumbosacral spine. Vertebral body heights are maintained. Intervertebral disc spaces are maintained. There are multilevel facet degenerative changes. Apparent 4 cm hyperdensity in the left lower quadrant of the abdomen does not persist on sacroiliac joint radiographs and is likely artifactual. Sacroiliac joints: There are mild degenerative changes of both sacroiliac joints. There are no periarticular erosions or widening. IMPRESSION 1. No evidence of inflammatory arthritis involving spine, sacroiliac joints, hands, or feet. 2. Deformities involving left fourth metatarsal and right third metatarsal likely reflect previous fractures. The tarsometatarsal articulations are not well evaluated in either foot. 3. No substantial degenerative disc disease in the cervical or lumbosacral spine. Mild facet arthritis. 4. Mild degenerative changes of both sacroiliac joints. [facility] ORDERABLES * XR FOOT BILAT 2 VIEWS (03/25/2015 5:31 PM CDT) Anatomical Region Laterality Modality Lower Extremity, Ankle / Foot Ra diographic Imaging 03/25/2015 8:09 PM CDT Impressions 03/25/2015 8:17 PM CDT 1. ??No evidence of inflammatory arthritis involving spine, sacroiliac joints, hands, or feet. 2. ??Deformities involving left fourth metatarsal and right third metatarsal likely reflect previous fractures. ??The tarsometatarsal articulations are not well evaluated in either foot. 3. ??No substantial degenerative disc disease in the cervical or lumbosacral spine. ??Mild facet arthritis. 4. ??Mild degenerative changes of both sacroiliac joints. Narrative 03/25/2015 8:17 PM CDT BILATERAL HANDS, TWO VIEWS OF EACH BILATERAL FEET, TWO VIEWS EACH CERVICAL SPINE, THREE VIEWS LUMBOSACRAL SPINE, THREE VIEWS SACROILIAC JOINTS, THREE VIEWS HISTORY: Arthritis, pain. COMPARISON: None. FINDINGS: Bilateral hands: There is no fracture or dislocation. ??Alignment of both hands is normal. ??The joint spaces are normal. ??A well-circumscribed lucency at the base of the left index finger middle phalanx likely reflects small subchondral cyst. ??There are no periarticular erosions. Bilateral feet: There is an incompletely healed fracture of the left fourth metatarsal. ??No other fractures are seen. ??Visualized joint spaces are normal. ??There is deformity at the base of the right third metatarsal, which may reflect old fracture. ??Degenerative changes are seen at the first metatarsophalangeal joint. ??Tarsometatarsal articulations are not well evaluated in either foot. Cervical spine: There is normal alignment of the cervical spine, including the C1-C2 articulation. ??There is no prevertebral soft tissue swelling. ??Intervertebral disc spaces are maintained. ??There are mild facet degenerative changes. Lumbosacral spine: There is normal alignment of the lumbosacral spine. Vertebral body heights are maintained. ??Intervertebral disc spaces are maintained. ??There are multilevel facet degenerative changes. ??Apparent 4 cm hyperdensity in the left lower quadrant of the abdomen does not persist on sacroiliac joint radiographs and is likely artifactual. Sacroiliac joints: There are mild degenerative changes of both sacroiliac joints. ??There are no periarticular erosions or widening. Procedure Note Precious Keys MD - 03/25/2015 BILATERAL HANDS, TWO VIEWS OF EACH BILATERAL FEET, TWO VIEWS EACH CERVICAL SPINE, THREE VIEWS LUMBOSACRAL SPINE, THREE VIEWS SACROILIAC JOINTS, THREE VIEWS HISTORY: Arthritis, pain. COMPARISON: None. FINDINGS: Bilateral hands: There is no fracture or dislocation. Alignment of both hands is normal. The joint spaces are normal. A well-circumscribed lucency at the base of the left index finger middle phalanx likely reflects small subchondral cyst. There are no periarticular erosions. Bilateral feet: There is an incompletely healed fracture of the left fourth metatarsal. No other fractures are seen. Visualized joint spaces are normal. There is deformity at the base of the right third metatarsal, which may reflect old fracture. Degenerative changes are seen at the first metatarsophalangeal joint. Tarsometatarsal articulations are not well evaluated in either foot. Cervical spine: There is normal alignment of the cervical spine, including the C1-C2 articulation. There is no prevertebral soft tissue swelling. Intervertebral disc spaces are maintained. There are mild facet degenerative changes. Lumbosacral spine: There is normal alignment of the lumbosacral spine. Vertebral body heights are maintained. Intervertebral disc spaces are maintained. There are multilevel facet degenerative changes. Apparent 4 cm hyperdensity in the left lower quadrant of the abdomen does not persist on sacroiliac joint radiographs and is likely artifactual. Sacroiliac joints: There are mild degenerative changes of both sacroiliac joints. There are no periarticular erosions or widening. IMPRESSION 1. No evidence of inflammatory arthritis involving spine, sacroiliac joints, hands, or feet. 2. Deformities involving left fourth metatarsal and right third metatarsal likely reflect previous fractures. The tarsometatarsal articulations are not well evaluated in either foot. 3. No substantial degenerative disc disease in the cervical or lumbosacral spine. Mild facet arthritis. 4. Mild degenerative changes of both sacroiliac joints. [facility] NG ORDERABLES * XR SACROILIAC JOINTS < 3 VW (03/25/2015 5:31 PM CDT) Anatomical Region Laterality Modality Pelvis, Lower Extremity Radiogra [facility] Imaging 03/25/2015 8:09 PM CDT Impressions 03/25/2015 8:17 PM CDT 1. ??No evidence of inflammatory arthritis involving spine, sacroiliac joints, hands, or feet. 2. ??Deformities involving left fourth metatarsal and right third metatarsal likely reflect previous fractures. ??The tarsometatarsal articulations are not well evaluated in either foot. 3. ??No substantial degenerative disc disease in the cervical or lumbosacral spine. ??Mild facet arthritis. 4. ??Mild degenerative changes of both sacroiliac joints. Narrative 03/25/2015 8:17 PM CDT BILATERAL HANDS, TWO VIEWS OF EACH BILATERAL FEET, TWO VIEWS EACH CERVICAL SPINE, THREE VIEWS LUMBOSACRAL SPINE, THREE VIEWS SACROILIAC JOINTS, THREE VIEWS HISTORY: Arthritis, pain. COMPARISON: None. FINDINGS: Bilateral hands: There is no fracture or dislocation. ??Alignment of both hands is normal. ??The joint spaces are normal. ??A well-circumscribed lucency at the base of the left index finger middle phalanx likely reflects small subchondral cyst. ??There are no periarticular erosions. Bilateral feet: There is an incompletely healed fracture of the left fourth metatarsal. ??No other fractures are seen. ??Visualized joint spaces are normal. ??There is deformity at the base of the right third metatarsal, which may reflect old fracture. ??Degenerative changes are seen at the first metatarsophalangeal joint. ??Tarsometatarsal articulations are not well evaluated in either foot. Cervical spine: There is normal alignment of the cervical spine, including the C1-C2 articulation. ??There is no prevertebral soft tissue swelling. ??Intervertebral disc spaces are maintained. ??There are mild facet degenerative changes. Lumbosacral spine: There is normal alignment of the lumbosacral spine. Vertebral body heights are maintained. ??Intervertebral disc spaces are maintained. ??There are multilevel facet degenerative changes. ??Apparent 4 cm hyperdensity in the left lower quadrant of the abdomen does not persist on sacroiliac joint radiographs and is likely artifactual. Sacroiliac joints: There are mild degenerative changes of both sacroiliac joints. ??There are no periarticular erosions or widening. Procedure Note Precious Keys MD - 03/25/2015 BILATERAL HANDS, TWO VIEWS OF EACH BILATERAL FEET, TWO VIEWS EACH CERVICAL SPINE, THREE VIEWS LUMBOSACRAL SPINE, THREE VIEWS SACROILIAC JOINTS, THREE VIEWS HISTORY: Arthritis, pain. COMPARISON: None. FINDINGS: Bilateral hands: There is no fracture or dislocation. Alignment of both hands is normal. The joint spaces are normal. A well-circumscribed lucency at the base of the left index finger middle phalanx likely reflects small subchondral cyst. There are no periarticular erosions. Bilateral feet: There is an incompletely healed fracture of the left fourth metatarsal. No other fractures are seen. Visualized joint spaces are normal. There is deformity at the base of the right third metatarsal, which may reflect old fracture. Degenerative changes are seen at the first metatarsophalangeal joint. Tarsometatarsal articulations are not well evaluated in either foot. Cervical spine: There is normal alignment of the cervical spine, including the C1-C2 articulation. There is no prevertebral soft tissue swelling. Intervertebral disc spaces are maintained. There are mild facet degenerative changes. Lumbosacral spine: There is normal alignment of the lumbosacral spine. Vertebral body heights are maintained. Intervertebral disc spaces are maintained. There are multilevel facet degenerative changes. Apparent 4 cm hyperdensity in the left lower quadrant of the abdomen does not persist on sacroiliac joint radiographs and is likely artifactual. Sacroiliac joints: There are mild degenerative changes of both sacroiliac joints. There are no periarticular erosions or widening. IMPRESSION 1. No evidence of inflammatory arthritis involving spine, sacroiliac joints, hands, or feet. 2. Deformities involving left fourth metatarsal and right third metatarsal likely reflect previous fractures. The tarsometatarsal articulations are not well evaluated in either foot. 3. No substantial degenerative disc disease in the cervical or lumbosacral spine. Mild facet arthritis. 4. Mild degenerative changes of both sacroiliac joints. [facility] NG ORDERABLES * XR LUMBAR SPINE 2 OR 3 VW (03/25/2015 5:31 PM CDT) Anatomical Region Laterality Modality Spine Radiographic [place]oma ging 03/25/2015 8:09 PM CDT Impressions 03/25/2015 8:17 PM CDT 1. ??No evidence of inflammatory arthritis involving spine, sacroiliac joints, hands, or feet. 2. ??Deformities involving left fourth metatarsal and right third metatarsal likely reflect previous fractures. ??The tarsometatarsal articulations are not well evaluated in either foot. 3. ??No substantial degenerative disc disease in the cervical or lumbosacral spine. ??Mild facet arthritis. 4. ??Mild degenerative changes of both sacroiliac joints. Narrative 03/25/2015 8:17 PM CDT BILATERAL HANDS, TWO VIEWS OF EACH BILATERAL FEET, TWO VIEWS EACH CERVICAL SPINE, THREE VIEWS LUMBOSACRAL SPINE, THREE VIEWS SACROILIAC JOINTS, THREE VIEWS HISTORY: Arthritis, pain. COMPARISON: None. FINDINGS: Bilateral hands: There is no fracture or dislocation. ??Alignment of both hands is normal. ??The joint spaces are normal. ??A well-circumscribed lucency at the base of the left index finger middle phalanx likely reflects small subchondral cyst. ??There are no periarticular erosions. Bilateral feet: There is an incompletely healed fracture of the left fourth metatarsal. ??No other fractures are seen. ??Visualized joint spaces are normal. ??There is deformity at the base of the right third metatarsal, which may reflect old fracture. ??Degenerative changes are seen at the first metatarsophalangeal joint. ??Tarsometatarsal articulations are not well evaluated in either foot. Cervical spine: There is normal alignment of the cervical spine, including the C1-C2 articulation. ??There is no prevertebral soft tissue swelling. ??Intervertebral disc spaces are maintained. ??There are mild facet degenerative changes. Lumbosacral spine: There is normal alignment of the lumbosacral spine. Vertebral body heights are maintained. ??Intervertebral disc spaces are maintained. ??There are multilevel facet degenerative changes. ??Apparent 4 cm hyperdensity in the left lower quadrant of the abdomen does not persist on sacroiliac joint radiographs and is likely artifactual. Sacroiliac joints: There are mild degenerative changes of both sacroiliac joints. ??There are no periarticular erosions or widening. Procedure Note Precious Keys MD - 03/25/2015 BILATERAL HANDS, TWO VIEWS OF EACH BILATERAL FEET, TWO VIEWS EACH CERVICAL SPINE, THREE VIEWS LUMBOSACRAL SPINE, THREE VIEWS SACROILIAC JOINTS, THREE VIEWS HISTORY: Arthritis, pain. COMPARISON: None. FINDINGS: Bilateral hands: There is no fracture or dislocation. Alignment of both hands is normal. The joint spaces are normal. A well-circumscribed lucency at the base of the left index finger middle phalanx likely reflects small subchondral cyst. There are no periarticular erosions. Bilateral feet: There is an incompletely healed fracture of the left fourth metatarsal. No other fractures are seen. Visualized joint spaces are normal. There is deformity at the base of the right third metatarsal, which may reflect old fracture. Degenerative changes are seen at the first metatarsophalangeal joint. Tarsometatarsal articulations are not well evaluated in either foot. Cervical spine: There is normal alignment of the cervical spine, including the C1-C2 articulation. There is no prevertebral soft tissue swelling. Intervertebral disc spaces are maintained. There are mild facet degenerative changes. Lumbosacral spine: There is normal alignment of the lumbosacral spine. Vertebral body heights are maintained. Intervertebral disc spaces are maintained. There are multilevel facet degenerative changes. Apparent 4 cm hyperdensity in the left lower quadrant of the abdomen does not persist on sacroiliac joint radiographs and is likely artifactual. Sacroiliac joints: There are mild degenerative changes of both sacroiliac joints. There are no periarticular erosions or widening. IMPRESSION 1. No evidence of inflammatory arthritis involving spine, sacroiliac joints, hands, or feet. 2. Deformities involving left fourth metatarsal and right third metatarsal likely reflect previous fractures. The tarsometatarsal articulations are not well evaluated in either foot. 3. No substantial degenerative disc disease in the cervical or lumbosacral spine. Mild facet arthritis. 4. Mild degenerative changes of both sacroiliac joints. [facility] NG ORDERABLES * XR CERVICAL SPINE 2 OR 3 VW (03/25/2015 5:31 PM CDT) Anatomical Region Laterality Modality Spine Radiographic [place]oma ging 03/25/2015 8:09 PM CDT Impressions 03/25/2015 8:17 PM CDT 1. ??No evidence of inflammatory arthritis involving spine, sacroiliac joints, hands, or feet. 2. ??Deformities involving left fourth metatarsal and right third metatarsal likely reflect previous fractures. ??The tarsometatarsal articulations are not well evaluated in either foot. 3. ??No substantial degenerative disc disease in the cervical or lumbosacral spine. ??Mild facet arthritis. 4. ??Mild degenerative changes of both sacroiliac joints. Narrative 03/25/2015 8:17 PM CDT BILATERAL HANDS, TWO VIEWS OF EACH BILATERAL FEET, TWO VIEWS EACH CERVICAL SPINE, THREE VIEWS LUMBOSACRAL SPINE, THREE VIEWS SACROILIAC JOINTS, THREE VIEWS HISTORY: Arthritis, pain. COMPARISON: None. FINDINGS: Bilateral hands: There is no fracture or dislocation. ??Alignment of both hands is normal. ??The joint spaces are normal. ??A well-circumscribed lucency at the base of the left index finger middle phalanx likely reflects small subchondral cyst. ??There are no periarticular erosions. Bilateral feet: There is an incompletely healed fracture of the left fourth metatarsal. ??No other fractures are seen. ??Visualized joint spaces are normal. ??There is deformity at the base of the right third metatarsal, which may reflect old fracture. ??Degenerative changes are seen at the first metatarsophalangeal joint. ??Tarsometatarsal articulations are not well evaluated in either foot. Cervical spine: There is normal alignment of the cervical spine, including the C1-C2 articulation. ??There is no prevertebral soft tissue swelling. ??Intervertebral disc spaces are maintained. ??There are mild facet degenerative changes. Lumbosacral spine: There is normal alignment of the lumbosacral spine. Vertebral body heights are maintained. ??Intervertebral disc spaces are maintained. ??There are multilevel facet degenerative changes. ??Apparent 4 cm hyperdensity in the left lower quadrant of the abdomen does not persist on sacroiliac joint radiographs and is likely artifactual. Sacroiliac joints: There are mild degenerative changes of both sacroiliac joints. ??There are no periarticular erosions or widening. Procedure Note Precious Keys MD - 03/25/2015 BILATERAL HANDS, TWO VIEWS OF EACH BILATERAL FEET, TWO VIEWS EACH CERVICAL SPINE, THREE VIEWS LUMBOSACRAL SPINE, THREE VIEWS SACROILIAC JOINTS, THREE VIEWS HISTORY: Arthritis, pain. COMPARISON: None. FINDINGS: Bilateral hands: There is no fracture or dislocation. Alignment of both hands is normal. The joint spaces are normal. A well-circumscribed lucency at the base of the left index finger middle phalanx likely reflects small subchondral cyst. There are no periarticular erosions. Bilateral feet: There is an incompletely healed fracture of the left fourth metatarsal. No other fractures are seen. Visualized joint spaces are normal. There is deformity at the base of the right third metatarsal, which may reflect old fracture. Degenerative changes are seen at the first metatarsophalangeal joint. Tarsometatarsal articulations are not well evaluated in either foot. Cervical spine: There is normal alignment of the cervical spine, including the C1-C2 articulation. There is no prevertebral soft tissue swelling. Intervertebral disc spaces are maintained. There are mild facet degenerative changes. Lumbosacral spine: There is normal alignment of the lumbosacral spine. Vertebral body heights are maintained. Intervertebral disc spaces are maintained. There are multilevel facet degenerative changes. Apparent 4 cm hyperdensity in the left lower quadrant of the abdomen does not persist on sacroiliac joint radiographs and is likely artifactual. Sacroiliac joints: There are mild degenerative changes of both sacroiliac joints. There are no periarticular erosions or widening. IMPRESSION 1. No evidence of inflammatory arthritis involving spine, sacroiliac joints, hands, or feet. 2. Deformities involving left fourth metatarsal and right third metatarsal likely reflect previous fractures. The tarsometatarsal articulations are not well evaluated in either foot. 3. No substantial degenerative disc disease in the cervical or lumbosacral spine. Mild facet arthritis. 4. Mild degenerative changes of both sacroiliac joints. [facility] NG ORDERABLES Care Teams Senior Clinical Research Scientist Relationship Specialty Start Date End Date Aditya Castro Update Information PCP - General 03/06/19
--- OUTSIDE RECORDS SUMMARY | 2024-08-18 13:00 | XMS_ITS | Encounter Summary ---
Author Organization [facility] Address [address] [facility] [place] [address] Care Team Providers Care Manager Of Business Operations Name Role Phone Aditya Castro Primary Care Provider Unavailab le Reason for Referral * Radiology Services (Routine) - Closed Specialty Diagnoses / Procedures Referred By Aguilar lora Referred To Contact Diagnoses Pre-transplant evaluation for kidney transplant Procedures CT ABDOMEN AND PELVIS NON IV CONTRAST Glenny Martin MD [address] [place] [address] [facility] Transplant [address] [place] [phone] Referral ID Status Reason Start Date Expiration Date Visits Re quested Visits Authorized [id number] Closed 05/14/2020 08/13/2020 1 1 Reason for Visit * Radiology Services (Routine) - Closed Specialty Diagnoses / Procedures Referred By Aguilar lora Referred To Contact Diagnoses Pre-transplant evaluation for kidney transplant Procedures CT ABDOMEN AND PELVIS NON IV CONTRAST Glenny Martin MD [address] [place] [address] [facility]ney Transplant [address] [place] [phone] Referral ID Status Reason Start Date Expiration Date Visits Re quested Visits Authorized [id number] Closed 05/14/2020 08/13/2020 1 1 Encounter Details Date Type Department Care Team (Late st Contact Info) Description 05/14/2020 10:25 AM CDT - 05/14/2020 10:39 AM CDT Hospital Encounter [facility] [address] [place] [address] Glenny Martin MD [address] [facility] [place] [address] Discharge Disposition: Home or Self Care Social History Tobacco Use Types Packs/Day Years Used Date Smoking Tobacco: Never Smokeless Tobacco: Never Alcohol Use Standard Drinks/Week Comments Not Currently 0 (1 standard drink = 0.6 oz pur e alcohol) 35 years ago Sex and Gender Information Value Date Recorded Sex Assigned at Not on file Gender Identity Not on file Sexual Orientation Not on file COVID-19 Exposure Response Date Recorded In the last month, have you been in contact with someone who was confirmed or suspected to have Coronavirus / COVID-19? No / Unsure 05/14/2020 7:22 AM CDT documented as of this encounter Medications at Time of Discharge Medication Sig Dispensed Refills Start Date End Date aspirin (ASPIRIN) 81 MG chew tablet Take 1 tablet by mouth once daily 11/24/2018 atorvastatin (LIPITOR) 20 MG tablet Take 40 mg by mouth at bedtime 02/23/2019 atorvastatin (LIPITOR) 40 MG tablet Take 40 mg by mouth at bedtime 02/28/2019 benzonatate (TESSALON) 200 MG capsule Take 1 capsule by mouth every 6 hours as needed 04/18/2019 calcitriol (ROCALTROL) 0.25 MCG capsule Take 0.25 mcg by mouth once daily carvedilol (COREG) 25 MG tablet Take 25 mg by mouth 2 times daily with morning and evening meal cetirizine (ZYRTEC) 10 MG tablet Take 10 mg by mouth once daily cloNIDine (CATAPRES) 0.1 MG tablet Take 0.1 mg by mouth 2 times daily clopidogrel (PLAVIX) 75 MG tablet Take 75 mg by mouth once daily colchicine 0.6 MG tablet Take 0.6 mg by mouth every Monday, Monday & Monday cyclobenzaprine (FLEXERIL) 10 MG tablet Take 10 mg by mouth every 12 hours as needed 01/25/2019 epoetin (PROCRIT) 57098 UNIT/ML injection Inject subcutaneously every 14 days ezetimibe (ZETIA) 10 MG tablet Take 10 mg by mouth once daily febuxostat (ULORIC) 40 MG tablet Take 40 mg by mouth 02/25/2019 ferrous sulfate EC (FERROUS SULFATE) 324 (65 Fe) MG tablet Take 324 mg by mouth once daily 02/21/2019 fluticasone propionate (FLONASE) 50 MCG/ACT nasal spray [place] 1 spray into each nostril once daily 04/24/2019 furosemide (LASIX) 40 MG tablet Take 80 mg by mouth 2 times daily 03/06/2019 gemfibrozil (LOPID) 600 MG tablet Take 600 mg by mouth 2 times daily,before breakfast and supper GLUCAGON EMERGENCY injection 04/18/2019 hydrALAZINE (APRESOLINE) 100 MG tablet Take 100 mg by mouth 3 times daily 02/16/2019 insulin lispro (ADMELOG) 100 UNIT/ML vial isosorbide mononitrate CR 24hr (IMDUR) 30 MG tablet Take 30 mg by mouth once daily isosorbide mononitrate CR 24hr (IMDUR) 60 MG tablet Take 60 mg by mouth once daily ketoconazole (NIZORAL) 2 % shampoo Apply to affected area once daily 04/23/2019 nitroGLYCERIN (NITROSTAT) 0.4 MG tablet Dissolve 0.4 mg under the tongue as needed for Angina phentermine (IONAMINE) 30 MG capsule Take 30 mg by mouth every 24 hours raNITIdine (ZANTAC) 300 MG tablet Take 300 mg by mouth 2 times daily 02/28/2019 ranolazine ER 12hr (RANEXA) 500 MG tablet Take 500 mg by mouth every 12 hours 02/20/2019 terazosin (HYTRIN) 2 MG capsule Take 2 mg by mouth once daily traMADol (ULTRAM) 50 MG tablet Take 50 mg by mouth every 8 hours as needed 11/14/2018 TRUE METRIX BLOOD GLUCOSE TEST test strip 04/17/2019 vitamin D, ergocalciferol, (DRISDOL) 49010 units capsule Take 50,000 Units by mouth every 7 days 02/13/2019 selenium sulfide (SELSUN) 2.5 % lotionIndications:Oth er seborrheic dermatitis APPLY TO FACE, LATHER, RINSE OFF IN SHOWER AFTER 3-5 MINUTES DIRECTED 120 mL 3 10/11/2019 07/20/2020 documented as of this encounter Plan of Treatment Not on file documented as of this encounter Procedures Procedure Name Priority Date/Time Associated Diagnosis Comments CT ABDOMEN PELVIS WO CONTRAST Routine 05/14/2020 10:35 AM CDT Pre-transplant evaluation for kidney transplant documented in this encounter Results * CT ABDOMEN AND PELVIS NON IV [...] annulus calcifications. Dictated by Ash Moreira MD (fixed income trading vice president). I, Dr. HANNAH SPENCE have personally reviewed [...] annulus calcifications. Dictated by Ash Moreira MD (fixed income trading vice president). I, Dr. HANNAH SPENCE have personally reviewed and interpreted this examination/study. This report was electronically signed by HANNAH SPENCE on 05/14/20205:03 PM . Glenny Martin MD CT ORDERABLES documented in this encounter Visit Diagnoses Diagnosis Pre-transplant evaluation for kidney transplant documented in this encounter Care Teams Manager Of Business Operations Relationship Specialty Start Date End Date Aditya Castro Update Information PCP - General 03/06/19 documented as of this encounter
--- OUTSIDE RECORDS SUMMARY | 2024-08-18 13:00 | XMS_ITS | Encounter Summary ---
Author Organization [facility] Address [address] [facility] [place] [address] Care Team Providers Care Rainbow Trout Farm Manager Name Role Phone Aditya Castro Primary Care Provider Unavailab le Reason for Referral * Laboratory Services (Routine) - Closed Specialty Diagnoses / Procedures Referred By Contac t Referred To Contact Diagnoses Pre-transplant evaluation for kidney transplant Procedures FACTOR V LEIDEN MUTATION PANEL Sourav Moscoso MD [address] [place] [address] Referral ID Status Reason Start Date Expiration Date Visits Re quested Visits Authorized [id number] Closed 03/24/2020 03/24/2021 1 1 * Laboratory Services (Routine) - Closed Specialty Diagnoses / Procedures Referred By Contac t Referred To Contact Diagnoses Pre-transplant evaluation for kidney transplant Procedures PROTHROMBIN [id number] PANEL Sourav Moscoso MD [address] [place], [place] [id number] Referral ID Status Reason Start Date Expiration Date Visits Re quested Visits Authorized [id number] Closed 03/24/2020 03/24/2021 1 1 Encounter Details Date Type Department Care Team (Late st Contact Info) Description 03/24/2020 Orders Only [facility] TRANSPLANT [address] [place] [address] Anali Merino, RN Pre-transplant evaluation for kidney transplant Social History Tobacco Use Types Packs/Day Years Used Date Smoking Tobacco: Never Smokeless Tobacco: Never Alcohol Use Standard Drinks/Week Comments Not Currently 0 (1 standard drink = 0.6 oz pur e alcohol) 35 years ago Sex and Gender Information Value Date Recorded Sex Assigned at Not on file Gender Identity Not on file Sexual Orientation Not on file documented as of this encounter Plan of Treatment Not on file documented as of this encounter Results * (ABNORMAL) PROTEIN S ANTIGEN (05/14/2020 10:18 AM CDT) Protein S Antigen Total 177(H) 60 - 150 % 05/16/2020 2:07 AM CDT [facility] ([facility]) Comment: This test was developed and its performance characteristics determined by [employer]. It has not been cleared or approved by the Food and Drug Administration. Total Protein S Antigen is an acute phase reactant protein and can be elevated in inflammatory states. Protein S Free 179(H) 57 - 157 % 05/16/2020 2:07 AM CDT [facility] Comment: This test was developed and its performance characteristics determined by [employer]. It has not been cleared or approved by the Food and Drug Administration. Blood BLOOD SPECIMEN / Unknown Lab Venipuncture / Unknown 05/14/2020 10:18 AM CDT 05/14/2020 10:48 AM CDT Narrative [facility] ([facility]) - 05/16/2020 2:07 AM CDT Performed at: ??[address] ??[id number] Sports Medicine Trainer: Con Grimaldo MD, Phone: ??[phone] Sourav Moscoso MD LAB - COAGULATION OR DERABLES [facility] ([facility]) [address] [place] [address], [facility] * ANTITHROMBIN III ACTIVITY (05/14/2020 10:18 AM CDT) Pathologist [facility] AT III Activity 125 76 - 128 % 0 9:58 PM CDT [employer] ([facility]) Comment: REFERENCE INTERVAL: Antithrombin, Enzymatic (Activity) Access complete set of age- and/or gender-specific reference intervals for this test in the [facility] ([employer]). Performed by [facility], [address] [place], [place] [id number] www.[employer], Valerie Mast MD, Lab. Director Blood BLOOD SPECIMEN / Unknown Lab Venipuncture / Unknown 05/14/2020 10:18 AM CDT 05/14/2020 10:51 AM CDT Sourav Moscoso MD LAB - COAGULATION OR DERABLES [employer] [facility]) [address] [place] [address], [facility] * CARDIOLIPIN ANTIBODY IGM (05/14/2020 10:18 AM CDT) Pathologist [facility] Cardiolipin Antibody IgM 0 0 - 12 MPL 05/17/2020 12:33 AM CDT [employer] ([facility]) Comment: INTERPRETIVE INFORMATION: Anti-Cardiolipin IgM 0-12 MPL: [...] other criteria phospholipid antibody tests. Performed By: [facility] [address] [place] [address] Animal Nutrition Consultant: Valerie Mast MD Blood BLOOD SPECIMEN / Unknown Lab Venipuncture / Unknown 05/14/2020 10:18 AM CDT 05/14/2020 10:57 AM CDT Sourav Moscoso MD LAB - SEROLOGY ORDER ROVERTO Performing Organization Address City/[facility]/ZIP Co de Phone Number [facility] [employer] [facility]) [address] * CARDIOLIPIN ANTIBODY IGG (05/14/2020 10:18 AM CDT) Cardiolipin Antibody IgG 2 0 - 14 GPL 05/17/2020 12:32 AM CDT [facility] ([facility]) Comment: INTERPRETIVE INFORMATION: Anti-Cardiolipin IgG Ab 0-14 [...] other criteria phospholipid antibody tests. Performed By: [facility] [address] [place] [address] Animal Nutrition Consultant: Valerie Mast MD Blood BLOOD SPECIMEN / Unknown Lab Venipuncture / Unknown 05/14/2020 10:18 AM CDT 05/14/2020 10:58 AM CDT Sourav Moscoso MD LAB - SEROLOGY ORDER ROVERTO Performing Organization Address City/[facility]/ZIP Co de Phone Number [facility] [employer] ([facility]) [address] * FACTOR V LEIDEN MUTATION PANEL (05/14/2020 10:18 AM CDT) Factor V Leiden Source Whole Blood 05/21/2020 4:02 PM [facility] ([facility]) Factor V Leiden PCR/FRET Negative 05/21/2020 4:02 PM [facility] ([facility]) Comment: Indication for testing: Assess genetic risk for thrombosis. NEGATIVE: The factor V Leiden variant, c.1601G>A; p.[id number], was not detected. This does not exclude [...] function in the F5 gene variant c.1601G>A (p.[id number]). Legacy nomenclature: [id number] (1691G>A) CLINICAL SENSITIVITY: 20-50 percent of individuals with an isolated VTE have the FVL variant. METHODOLOGY: Polymerase chain reaction and fluorescence monitoring. ANALYTICAL SENSITIVITY AND SPECIFICITY: 99 percent. LIMITATIONS: Diagnostic errors can occur due to rare sequence variations. F5 gene mutations, other than p.[id number], will not be detected. This test was developed and its performance characteristics determined by [employer]. It has not been cleared or approved by the [place] Food and Drug Administration. This test was performed in a CLIA certified laboratory and is intended for clinical purposes. Counseling and informed consent are recommended for genetic testing. Consent forms are available online. Performed by [facility], [address] [id number] www.[employer], Valerie Mast MD, Lab. Director Blood BLOOD SPECIMEN / Unknown Lab Venipuncture / Unknown 05/14/2020 10:18 AM CDT 05/14/2020 10:49 AM CDT Sourav Moscoso MD LAB - COAGULATION OR DERABLES [employer] [facility] ([facility]) [address] [place] [address], [facility] * PROTHROMBIN [id number] PANEL (05/14/2020 10:18 AM CDT) [facility] Prothrombin [id number] Negative 05/21/2020 8:19 PM CDT [employer] ([facility]) Comment: Indication for testing: Assess genetic risk for thrombosis. NEGATIVE: The Factor II, prothrombin J90653N mutation, was not detected. ??Other causes of [...] Cui, Ph.D. BACKGROUND INFORMATION: Prothrombin (F2) c.*97G>A ?(P60528X) Pathogenic Variant CHARACTERISTICS: The Factor II, c.*97G>A (O28842O) pathogenic variant is a common genetic risk [...] CAUSE: Homozygosity or heterozygosity for F2 c.*97G>A (N31066R). PATHOGENIC VARIANT TESTED: F2 c.*97G>A (O13357N). CLINICAL SENSITIVITY FOR VENOUS THROMBOSIS: Approximately 10 percent. METHODOLOGY: Polymerase chain reaction and fluorescence monitoring. ANALYTICAL SENSITIVITY AND SPECIFICITY: 99 percent. LIMITATIONS: Diagnostic errors can occur due to rare sequence variations. F2 gene variants, other than c.*97G>A (V54894E), will not be detected. This test was developed and its performance characteristics determined by [employer]. It has not been cleared or approved by the [place] Food and Drug Administration. This test was performed in a CLIA certified laboratory and is intended for clinical purposes. Counseling and informed consent are recommended for genetic testing. Consent forms are available online. Performed by [facility], [address] [place] [address] www.[employer], Valerie Mast MD, Lab. Director Source PT [id number] PCR Whole Blood 05/21/2020 8:19 PM CDT [facility]) Blood BLOOD SPECIMEN / Unknown Lab Venipuncture / Unknown 05/14/2020 10:18 AM CDT 05/14/2020 10:48 AM CDT Sourav Moscoso MD LAB - COAGULATION OR DERABLES [employer] [facility]) [address] [place] [address] * (ABNORMAL) HOMOCYSTEINE BLOOD QUANTITATIVE (05/14/2020 10:18 AM CDT) [facility] Homocysteine 21.1(H) 4.4 - 16.2 umol/L 05/14/2020 11:51 AM CDT [facility] Blood BLOOD SPECIMEN / Unknown Lab Venipuncture / Unknown 05/14/2020 10:18 AM CDT 05/14/2020 10:48 AM CDT Sourav Moscoso MD LAB - CHEMISTRY SUSANNAH LEONE Performing Organization Address City/State/[facility] Co de Phone Number [address] [address], [facility] [phone] documented in this encounter Visit Diagnoses Diagnosis Pre-transplant evaluation for kidney transplant- Primary documented in this encounter Care Teams Rainbow Trout Farm Manager Relationship Specialty Start Date End Date Aditya Castro Update Information PCP - General 03/06/19 documented as of this encounter
--- OUTSIDE RECORDS SUMMARY | 2024-08-18 13:00 | XMS_ITS | Encounter Summary ---
Author Organization [facility] Address [address] [place] [address] Care Team Providers Care Cad Librarian Name Role Phone Aditya Castro Primary Care Provider Unavailab le Reason for Visit * Reason Comments Refill Request Encounter Details Date Type Department Care Team (Late st Contact Info) Description 04/13/2021 Refill [facility] [address] [place] [address] Girish Vasques MD [address] [facility] [address] [place] [address] Refill Request Social History Tobacco Use Types Packs/Day Years [...] on file documented as of this encounter Visit Diagnoses Diagnosis Other seborrheic dermatitis documented in this encounter Care Teams Cad Librarian Relationship Specialty Start Date End Date Aditya Castro Update Information PCP - General 03/06/19 documented as of this encounter
--- OUTSIDE RECORDS SUMMARY | 2024-08-18 13:00 | XMS_ITS | Encounter Summary ---
Author Organization [facility] Address [address] [facility] [place] [address] Care Team Providers Care Energy Sales Broker Name Role Phone Aditya Castro Primary Care Provider Unavailab le Reason for Visit * Reason Comments Kidney Transplant Evaluation Encounter Details Date Type Department Care Team (Late st Contact Info) Description 07/03/2020 Telephone [facility] TRANSPLANT [address] [place] [address] Carey Chavez Kidney Transplant Evaluation Social History Tobacco Use Types Packs/Day Years Used Date Smoking Tobacco: Never Smokeless Tobacco: Never Alcohol Use Standard Drinks/Week Comments Not Currently 0 (1 standard drink = 0.6 oz pur e alcohol) 35 years ago Sex and Gender Information Value Date Recorded Sex Assigned at Not on file Gender Identity Not on file Sexual Orientation Not on file documented as of this encounter Progress Notes * Carey Chavez - 07/03/2020 1:38 PM CST I called and spoke with pt today to let him know that we have added his sw consult on to his appts for 07-13-2020 at 1:00 pm. He will still be seen in the clinic at 2:00 pm and 3:00pm. Pt confirmed the appts will work for him and that his support person will be with him. I will mail an appt reminder letter once the clinic has added his appt into epic. 07/03/2020 1:40 PM WEAVER documented in this encounter Plan of Treatment Not on file documented as of this encounter Visit Diagnoses Not on filedocumented in this encounter Care Teams Energy Sales Broker Relationship Specialty Start Date End Date Aditya Castro Update Information PCP - General 03/06/19 documented as of this encounter
--- OUTSIDE RECORDS SUMMARY | 2024-08-18 13:00 | XMS_ITS | Encounter Summary ---
Author Organization [facility] Address [address] [facility] [place] [address] Care Team Providers Care Machine Preservative Filler Name Role Phone Aditya Castro Primary Care Provider Unavailab le Reason for Referral * Laboratory Services (Routine) - Closed Specialty Diagnoses / Procedures Referred By Contac t Referred To Contact Diagnoses Pre-transplant evaluation for kidney transplant Procedures FACTOR V LEIDEN MUTATION PANEL Sourav Moscoso MD [address] [email or web address] [address] Referral ID Status Reason Start Date Expiration Date Visits Re quested Visits Authorized [id number] Closed 03/24/2020 03/24/2021 1 1 * Laboratory Services (Routine) - Closed Specialty Diagnoses / Procedures Referred By Contac t Referred To Contact Diagnoses Pre-transplant evaluation for kidney transplant Procedures PROTHROMBIN [id number] PANEL Sourav Moscoso MD [address] [email or web address] [address] Referral ID Status Reason Start Date Expiration Date Visits Re quested Visits Authorized [id number] Closed 03/24/2020 03/24/2021 1 1 Reason for Visit * Laboratory Services (Routine) - Closed Specialty Diagnoses / Procedures Referred By Contac t Referred To Contact Diagnoses Pre-transplant evaluation for kidney transplant Procedures PROTHROMBIN [id number] PANEL Sourav Moscoso MD [email or web address] [place] [address] Referral ID Status Reason Start Date Expiration Date Visits Re quested Visits Authorized [id number] Closed 03/24/2020 03/24/2021 1 1 Encounter Details Date Type Department Care Team (Late st Contact Info) Description 05/14/2020 10:00 AM CDT - 05/14/2020 10:24 AM CDT Hospital Encounter [facility] OP DRAW STATION [address] [place] [address] Glenny Martin MD [facility] [place] [address] Discharge Disposition: Home or Self Care Social [...] 12 hours as needed 01/25/2019 epoetin (PROCRIT) 58325 UNIT/ML injection Inject subcutaneously every 14 days ezetimibe (ZETIA) 10 MG tablet Take 10 mg by mouth once daily febuxostat (ULORIC) 40 MG tablet Take 40 mg by mouth 02/25/2019 ferrous sulfate EC (FERROUS SULFATE) 324 (65 Fe) MG tablet Take 324 mg by mouth once daily 02/21/2019 fluticasone propionate (FLONASE) 50 MCG/ACT nasal spray Beatty 1 spray into each nostril once daily [...] test strip 04/17/2019 vitamin D, ergocalciferol, (DRISDOL) 79648 units capsule Take 50,000 Units by mouth every 7 days 02/13/2019 selenium sulfide (SELSUN) 2.5 % lotionIndications:Oth er seborrheic dermatitis APPLY TO FACE, LATHER, RINSE OFF IN SHOWER AFTER 3-5 MINUTES DIRECTED 120 mL 3 10/11/2019 07/20/2020 documented as of this encounter Plan of Treatment Not on file documented as of this encounter Procedures Procedure Name Priority Date/Time Associated Diagnosis Comments HLA TYPING DNA LOW RESOLUTION DR,DQ Routine 05/14/2020 10:18 AM CDT Pre-transplant evaluation for kidney transplant HLA TYPING DNA LOW RESOLUTION A,B,C Routine 05/14/2020 10:18 AM CDT Pre-transplant evaluation for kidney transplant HLA ANTIBODY SCREEN LUM CLASS 2 ID Routine 05/14/2020 10:18 AM CDT Pre-transplant evaluation for kidney transplant HLA ANTIBODY SCREEN LUM CLASS 1 ID Routine 05/14/2020 10:18 AM CDT Pre-transplant evaluation for kidney transplant HIV-1 HIV-2 ANTIGEN/ANTIBODY Routine 05/14/2020 10:18 AM CDT Pre-transplant evaluation for kidney transplant CANNABINOID SCREEN BLOOD Routine 05/14/2020 10:18 AM CDT Pre-transplant evaluation for kidney transplant COCAINE METABOLITE BLOOD QUANT Routine 05/14/2020 10:18 AM CDT Pre-transplant evaluation for kidney transplant SYPHILIS ANTIBODY CASCADING REFLEX Routine 05/14/2020 10:18 AM CDT Pre-transplant evaluation for kidney transplant AMPHETAMINE BLOOD CONFIRMATION Routine 05/14/2020 10:18 AM CDT Pre-transplant evaluation for kidney transplant PTH INTACT W/O CALCIUM Routine 0 10:18 AM CDT Pre-transplant evaluation for kidney transplant OPIATES BLOOD Routine 05/14/2020 10:18 AM CDT Pre-transplant evaluation for kidney transplant URIC ACID BLOOD Routine 05/14/2020 10:18 AM CDT Pre-transplant evaluation for kidney transplant PROTHROMBIN [id number] PANEL Routine 05/14/2020 10:18 AM CDT Pre-transplant evaluation for kidney transplant PROTEIN S ANTIGEN Routine 05/14/2020 10: 18 AM CDT Pre-transplant evaluation for kidney transplant STRONGYLOIDES ANTIBODY IGG Routine 05/14/2020 10:18 AM CDT Pre-transplant evaluation for kidney transplant FACTOR V LEIDEN MUTATION PANEL Routine 05/14/2020 10:18 AM CDT Pre-transplant evaluation for kidney transplant CARDIOLIPIN ANTIBODY IGM Routine 05/14/2020 10:18 AM CDT Pre-transplant evaluation for kidney transplant CARDIOLIPIN ANTIBODY IGG Routine 05/14/2020 10:18 AM CDT Pre-transplant evaluation for kidney transplant CYTOMEGALOVIRUS ANTIBODY IGG BLOOD Routine 05/14/2020 10:18 AM CDT Pre-transplant evaluation for kidney transplant RUBELLA ANTIBODY IGG TITER Routine 05/14/2020 10:18 AM CDT Pre-transplant evaluation for kidney transplant RUBEOLA ANTIBODY IGG Routine 05/14/2020 10:18 AM CDT Pre-transplant evaluation for kidney transplant MUMPS ANTIBODY IGG Routine 05/14/2020 10 :18 AM CDT Pre-transplant evaluation for kidney transplant VARICELLA ZOSTER ANTIBODY IGG Routine 05/14/2020 10:18 AM CDT Pre-transplant evaluation for kidney transplant PROTEIN C ACTIVITY Routine 05/14/2020 10 :18 AM CDT Pre-transplant evaluation for kidney transplant TRANSFERRIN Routine 05/14/2020 10:18 AM CDT Pre-transplant evaluation for kidney transplant TOXOPLASMA GONDII ANTIBODY IGG Routine 05/14/2020 10:18 AM CDT Pre-transplant evaluation for kidney transplant MADIHA-CA VIRUS ANTIBODY TO VCA IGG Routine 05/14/2020 10:18 AM CDT Pre-transplant evaluation for kidney transplant HEMOGLOBIN A1C Routine 05/14/2020 10:18 AM CDT Pre-transplant evaluation for kidney transplant HOMOCYSTEINE BLOOD QUANTITATIVE Routine 05/14/2020 10:18 AM CDT Pre-transplant evaluation for kidney transplant ANTITHROMBIN III ACTIVITY Routine 05/14/2020 10:18 AM CDT Pre-transplant evaluation for kidney transplant VITAMIN D 25-HYDROXY Routine 05/14/2020 10:18 AM CDT Pre-transplant evaluation for kidney transplant BLOOD TYPE ABO+ RH PANEL Routine 05/14/2020 10:18 AM CDT Pre-transplant evaluation for kidney transplant NICOTINE + METABOLITES BLOOD Routine 05/14/2020 10:18 AM CDT Pre-transplant evaluation for kidney transplant CBC W AUTO DIFFERENTIAL Routine 05/14/20 20 10:18 AM CDT Pre-transplant evaluation for kidney transplant COMPREHENSIVE METABOLIC PANEL Routine 05/14/2020 10:18 AM CDT Pre-transplant evaluation for kidney transplant PROSTATE SPECIFIC ANTIGEN SCREEN Routine 05/14/2020 10:18 AM CDT Pre-transplant evaluation for kidney transplant PHOSPHORUS BLOOD Routine 05/14/2020 10:1 8 AM CDT Pre-transplant evaluation for kidney transplant IRON BLOOD Routine 05/14/2020 10:18 AM CDT Pre-transplant evaluation for kidney transplant HEPATITIS B SURFACE ANTIBODY Routine 05/14/2020 10:18 AM CDT Pre-transplant evaluation for kidney transplant HEPATITIS B CORE ANTIBODY TOTAL Routine 05/14/2020 10:18 AM CDT Pre-transplant evaluation for kidney transplant HEPATITIS B SURFACE ANTIGEN W RFLX CONFIRMATION Routine 05/14/2020 10:18 AM CDT Pre-transplant evaluation for kidney transplant ALCOHOL ETHYL BLOOD Routine 05/14/2020 1 0:18 AM CDT Pre-transplant evaluation for kidney transplant HEPATITIS C ANTIBODY Routine 05/14/2020 10:18 AM CDT Pre-transplant evaluation for kidney transplant HEPATITIS A ANTIBODY Routine 05/14/2020 10:18 AM CDT Pre-transplant evaluation for kidney transplant FERRITIN Routine 05/14/2020 10:18 AM CDT Pre-transplant evaluation for kidney transplant LIPID PROFILE Routine 05/14/2020 10:18 AM CDT Pre-transplant evaluation for kidney transplant TYPE + SCREEN PANEL Routine 05/14/2020 1 0:06 AM CDT Pre-transplant evaluation for kidney transplant documented in this encounter Results * (ABNORMAL) PROTEIN S ANTIGEN (05/14/2020 10:18 AM CDT) [facility] Protein S Antigen Total 177(H) 60 - 150 % 05/16/2020 2:07 AM CDT [facility] ([facility]) Comment: This test was developed and its performance characteristics determined by [employer]. It has not been cleared or approved by the Food and Drug Administration. Total Protein S Antigen is an acute phase reactant protein and can be elevated in inflammatory states. Protein S Free 179(H) 57 - 157 % 05/16/2020 2:07 AM CDT [facility] ([facility]) Comment: This test was developed and its performance characteristics determined by [facility]. It has not been cleared or approved by the Food and Drug Administration. Blood BLOOD SPECIMEN / Unknown Lab Venipuncture / Unknown 05/14/2020 10:18 AM CDT 05/14/2020 10:48 AM CDT [facility] ([facility]) - 05/16/2020 2:07 AM CDT Performed at: ??01 - [facility] [address] ??[id number] Supervisor Welding Equipment Repairer: Con Grimaldo MD, Phone: ??[phone] Sourav Moscoso MD LAB - COAGULATION OR DERABLES [facility] ([facility]) [address] [place] [address], [facility] * ANTITHROMBIN III ACTIVITY (05/14/2020 10:18 AM CDT) Pathologist [facility] AT III Activity 125 76 - 128 % 0 9:58 PM CDT [facility] ([facility]) Comment: REFERENCE INTERVAL: Antithrombin, Enzymatic (Activity) Access complete set of age- and/or gender-specific reference intervals for this test in the [facility] ([employer] [place]). Performed by APR, [address] [place] [address] [email or web address] [place], Valerie Mast MD, Lab. Director Blood BLOOD SPECIMEN / Unknown Lab Venipuncture / Unknown 05/14/2020 10:18 AM CDT 05/14/2020 10:51 AM CDT Sourav Moscoso MD LAB - COAGULATION OR DERABLES Performing Organization Address [facility]/ZIP Co de Phone Number [employer] [facility]) [address] [place] [address] * CARDIOLIPIN ANTIBODY IGM (05/14/2020 10:18 AM CDT) [facility] Cardiolipin Antibody IgM 0 0 - 12 MPL 05/17/2020 12:33 AM CDT [facility] ([facility]) Comment: INTERPRETIVE INFORMATION: Anti-Cardiolipin IgM 0-12 [...] other criteria phospholipid antibody tests. Performed By: APR [address] [place] [address] Instrumentation Tech: Valerie Mast MD Blood BLOOD SPECIMEN / Unknown Lab Venipuncture / Unknown 05/14/2020 10:18 AM CDT 05/14/2020 10:57 AM CDT Sourav Moscoso MD LAB - SEROLOGY ORDER ROVERTO [employer] ([facility]) [address] [place] [address] * CARDIOLIPIN ANTIBODY IGG (05/14/2020 10:18 AM CDT) Cardiolipin Antibody IgG 2 0 - 14 GPL 05/17/2020 12:32 AM CDT [facility] [employer] ([facility]) Comment: INTERPRETIVE INFORMATION: Anti-Cardiolipin IgG Ab [...] other criteria phospholipid antibody tests. Performed By: APR [address] [place] [address] Instrumentation Tech: Valerie Mast MD Blood BLOOD SPECIMEN / Unknown Lab Venipuncture / Unknown 05/14/2020 10:18 AM CDT 05/14/2020 10:58 AM CDT Sourav Moscoso MD LAB - SEROLOGY ORDER ROVERTO [employer] ([facility]) [address] [place] [address], [facility] * FACTOR V LEIDEN MUTATION PANEL (05/14/2020 10:18 AM CDT) [facility] Factor V Leiden Source Whole Blood 05/21/2020 4:02 PM CDT [facility] ([facility]) Factor V Leiden PCR/FRET Negative 05/21/2020 4:02 PM CDT [employer] ([facility]) Comment: Indication for testing: Assess genetic risk for thrombosis. NEGATIVE: The factor V Leiden variant, c.1601G>A; p.Swl089Ezx, was not detected. This does not exclude [...] function in the F5 gene variant c.1601G>A (p.Cbj146Hji). Legacy nomenclature: [id number] (1691G>A) CLINICAL SENSITIVITY: 20-50 percent of individuals with an isolated VTE have the FVL variant. METHODOLOGY: Polymerase chain reaction and fluorescence monitoring. ANALYTICAL SENSITIVITY AND SPECIFICITY: 99 percent. LIMITATIONS: Diagnostic errors can occur due to rare sequence variations. F5 gene mutations, other than p.Ckg196Pgh, will not be detected. This test was developed and its performance characteristics determined by [facility]. It has not been cleared or approved by the US Food and Drug Administration. This test was performed in a CLIA certified laboratory and is intended for clinical purposes. Counseling and informed consent are recommended for genetic testing. Consent forms are available online. Performed by APR, [address] [place] [address] [email or web address] [place], Valerie Mast MD, Lab. Director Blood BLOOD SPECIMEN / Unknown Lab Venipuncture / Unknown 05/14/2020 10:18 AM CDT 05/14/2020 10:49 AM CDT Sourav Moscoso MD LAB - COAGULATION OR DERABLES [employer] ([facility]) [address] [place] [address], [facility] * PROTHROMBIN [id number] PANEL (05/14/2020 10:18 AM CDT) [facility] Prothrombin [id number] Negative 05/21/2020 8:19 PM CDT [facility] [employer] ([facility]) Comment: Indication for testing: Assess genetic risk for thrombosis. NEGATIVE: The Factor II, prothrombin [id number] mutation, was not detected. ??Other causes of [...] Cui, Ph.D. 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 PATHOGENIC VARIANT TESTED: F2 c.*97G>A (V87066V). CLINICAL SENSITIVITY FOR VENOUS THROMBOSIS: Approximately 10 percent. METHODOLOGY: Polymerase chain reaction and fluorescence monitoring. ANALYTICAL SENSITIVITY AND SPECIFICITY: 99 percent. LIMITATIONS: Diagnostic errors can occur due to rare sequence variations. F2 gene variants, other than c.*97G>A (W23736A), will not be detected. This test was developed and its performance characteristics determined by [facility]. It has not been cleared or approved by the US Food and Drug Administration. This test was performed in a CLIA certified laboratory and is intended for clinical purposes. Counseling and informed consent are recommended for genetic testing. Consent forms are available online. Performed by APR, [address] [place] [address],[place] [address] [email or web address] [place], Valerie Mast MD, Lab. Director Source PT [id number] PCR Whole Blood 05/21/2020 8:19 PM CDT [facility] ([facility]) Blood BLOOD SPECIMEN / Unknown Lab Venipuncture / Unknown 05/14/2020 10:18 AM CDT 05/14/2020 10:48 AM CDT Sourav Moscoso MD LAB - COAGULATION OR DERABLES Performing Organization Address City/[facility]/ZIP Co de Phone Number [facility]) [address] * (ABNORMAL) HOMOCYSTEINE BLOOD QUANTITATIVE (05/14/2020 10:18 AM CDT) Homocysteine 21.1(H) 4.4 - 16.2 umol/L 05/14/2020 11:51 AM CDT [facility] Blood BLOOD SPECIMEN / Unknown Lab Venipuncture / Unknown 05/14/2020 10:18 AM CDT 05/14/2020 10:48 AM CDT Sourav Moscoso MD LAB - CHEMISTRY ORDE RABLES [place] [id number] [place] [id number] [place] [address] * HLA ANTIBODY SCREEN LUM CLASS 1 ID (05/14/2020 10:18 AM CDT) % PRA 4 05/29/2020 7:59 AM CDT [facility] ([facility]) Class 1 LUM Specificity - 05/29/2020 7:59 AM CDT [facility] ([facility]) Class 1 LUM Test Date 0 05/29/2020 7:59 AM CDT [facility] ([facility]) Comment: This test was developed and its performance characteristics determined by the [facility]. ??It has not been cleared or [...] high complexity clinical laboratory testing. ??CLIA ID# [id number] Performed at: ??[facility], [address] @ [place], [place] ??[phone] Supervisor Welding Equipment Repairer: Jarrod Chin MD, Blood BLOOD SPECIMEN / Unknown Lab Venipuncture / Unknown 05/14/2020 10:18 AM CDT 05/14/2020 10:52 AM CDT Glenny Martin MD LAB - BLOOD BAN K ORDERABLES [facility] ([facility]) [address] [place] [address], [place] * HLA ANTIBODY SCREEN LUM CLASS 2 ID (05/14/2020 10:18 AM CDT) % PRA 90 05/29/2020 7:59 AM CDT [facility] ([facility]) Class 2 LUM Specificity - 05/29/2020 7:59 AM CDT [facility] ([facility]) Class 2 LUM Test Date 0 05/29/2020 7:59 AM CDT [facility] ([facility]) Comment: This test was developed and its performance characteristics determined by the [facility]. ??It has not been cleared or [...] high complexity clinical laboratory testing. ??CLIA ID# [id number] Performed at: ??[facility], [address] @ [place], [place] ??[phone] Supervisor Welding Equipment Repairer: Jarrod Chin MD, Blood BLOOD SPECIMEN / Unknown Lab Venipuncture / Unknown 05/14/2020 10:18 AM CDT 05/14/2020 10:52 AM CDT Glenny Martin MD LAB - BLOOD BAN K ORDERABLES Performing Organization Address City/[facility]/ZIP Co de Phone Number [facility] [address] [place] [address], [facility] * HIV-1 HIV-2 ANTIGEN/ANTIBODY (05/14/2020 10:18 AM CDT) HIV Antigen/Antibod y 1 & 2 Non-reacti ve Non-react bianca 05/14/2020 11:49 AM CDT [facility] Comment:Neither HIV-1 p24 An tigen nor HIV-1/HIV-2 Antibodies are detected. Blood BLOOD SPECIMEN / Unknown Lab Venipuncture / Unknown 05/14/2020 10:18 AM CDT 05/14/2020 10:57 AM CDT Glenny Martin MD LAB - HEMATOLOG Y ORDERABLES Performing Organization Address [facility] Co de Phone Number [facility] [address] [address], [facility] [phone] * (ABNORMAL) HEPATITIS A ANTIBODY (05/14/2020 10:18 AM CDT) [facility] Hepatitis A Virus Antibody Total Positive( A) Negative 05/16/2020 11:02 AM CDT [facility] ([facility]) Comment: The positive anti-HAV is consistent with recent or remote Hepatitis A infection or antibody response to HAV vaccination. False positive anti-HAV can occur. Performed by APR, [address] [place], [place] [id number] [email or web address] [place], Valerie Mast MD, Lab. Director Blood BLOOD SPECIMEN / Unknown Lab Venipuncture / Unknown 05/14/2020 10:18 AM CDT 05/14/2020 10:57 AM CDT Glenny Martin MD LAB - CHEMISTRY ORDERABLES Performing Organization Address [facility] Co de Phone Number [facility] ([facility]) [address] [place] [address] * (ABNORMAL) PTH INTACT ([facility]) (05/14/2020 10:18 AM CDT) Pathologist [facility] PTH Intact 653.3(H) 8.0 - 77.0 pg/mL 05/14/2020 11:34 AM CDT [facility] Blood BLOOD SPECIMEN / Unknown Lab Venipuncture / Unknown 05/14/2020 10:18 AM CDT 05/14/2020 10:55 AM CDT Glenny Martin MD LAB - CHEMISTRY ORDERABLES [facility] [address] [place] [address], [facility] [phone] * TOXOPLASMA GONDII ANTIBODY IGG (05/14/2020 10:18 AM CDT) [facility] Toxoplasma Antibody IgG <3.0 IU/mL 05/16/2020 6:32 PM CDT [facility] ([facility]) Comment: INTERPRETIVE INFORMATION: Toxoplasma Ab, IgG [...] the amount of antibody present. Performed By: APR [address] [place] [address] Instrumentation Tech: Valerie Mast MD Blood BLOOD SPECIMEN / Unknown Lab Venipuncture / Unknown 05/14/2020 10:18 AM CDT 05/14/2020 10:58 AM CDT Glenny Martin MD LAB - CHEMISTRY ORDERABLES [facility]) [address] [place] [address], [facility] * STRONGYLOIDES ANTIBODY IGG (05/14/2020 10:18 AM CDT) Strongyloides Antibody IgG 0.2 <=0.9 IV 05/17/2020 10:58 PM CDT [facility] ([facility]) Comment: INTERPRETIVE INFORMATION: Strongyloides Ab, IgG [...] also result in false-positive results. Performed By: APR [address] [place] [address] Instrumentation Tech: Valerie Mast MD Blood BLOOD SPECIMEN / Unknown Lab Venipuncture / Unknown 05/14/2020 10:18 AM CDT 05/14/2020 10:55 AM CDT Glenny Martin MD LAB - SEROLOGY ORDERABLES [facility]) [address] [place] [address], [facility] * PROSTATE SPECIFIC ANTIGEN SCREEN (05/14/2020 10:18 AM CDT) PSA Total 0.4 0.0 - 4.0 ng/mL 05/14/2020 11:59 AM CDT [facility] Blood BLOOD SPECIMEN / Unknown Lab Venipuncture / Unknown 05/14/2020 10:18 AM CDT 05/14/2020 10:55 AM CDT Glenny Martin MD LAB - CHEMISTRY ORDERABLES Performing Organization Address City/[facility]/ZIP Co de Phone Number [address] [address], [facility] [phone] * CANNABINOID SCREEN BLOOD (05/14/2020 10:18 AM CDT) Marijuana Metabolites Negative 05/17/2020 12:06 AM CDT [facility] ([facility]) Comment:REFERENCE RANGE: thr shold: 5 ng/mL Specimen Type Comment 05/17/2020 12:06 AM CDT [facility] ([facility]) Comment: WHOLE BLOOD This specimen was screened by immunoassay at the thresholds listed above. Presumptive positive results have not been confirmed by an alternate method; results are intended for clinical medical purposes. Please contact the laboratory if confirmatory testing is desired. This test was developed and its performance characteristics determined by [facility]. It has not been cleared or approved by the Food and Drug Administration. Blood BLOOD SPECIMEN / Unknown Lab Venipuncture / Unknown 05/14/2020 10:18 AM CDT 05/14/2020 10:53 AM CDT Narrative [facility] ([facility]) - 05/17/2020 12:06 AM CDT Performed at: ??01 - [employer] [address] [place] [address] ??[phone] Supervisor Welding Equipment Repairer: Radha Callahan [facility], Phone: ??[phone] Glenny Martin MD LAB - CHEMISTRY ORDERABLES [facility] ([facility]) [address] [place] [id number] * IRON BLOOD (05/14/2020 10:18 AM CDT) Iron 84 50 - 175 mcg/dL 05/14/2020 11:41 AM CDT [facility] Blood BLOOD SPECIMEN / Unknown Lab Venipuncture / Unknown 05/14/2020 10:18 AM CDT 05/14/2020 10:57 AM CDT Glenny Martin MD LAB - CHEMISTRY ORDERABLES Performing Organization Address City/[facility]/ZIP Co de Phone Number [address] [address], [place] [phone] * (ABNORMAL) FERRITIN (05/14/2020 10:18 AM CDT) Ferritin 502(H) 22 - 275 ng/mL 05/14/2020 11:47 AM CDT [facility] Blood BLOOD SPECIMEN / Unknown Lab Venipuncture / Unknown 05/14/2020 10:18 AM CDT 05/14/2020 10:55 AM CDT Glenny Martin MD LAB - CHEMISTRY ORDERABLES [address] [address], [place] [phone] * TRANSFERRIN (05/14/2020 10:18 AM CDT) Transferrin 245 174 - 382 mg/dL 05/14/2020 11:41 AM CDT [facility] Transferrin Saturation % 27 16 - 50 % 05/14/2020 11:41 AM CDT [facility] Blood BLOOD SPECIMEN / Unknown Lab Venipuncture / Unknown 05/14/2020 10:18 AM CDT 05/14/2020 10:57 AM CDT Glenny Martin MD LAB - CHEMISTRY ORDERABLES Performing Organization Address [facility]/ZIP Co de Phone Number [facility] [address] [place] [address], [facility] [facility] [phone] * (ABNORMAL) VITAMIN D 25-HYDROXY (05/14/2020 10:18 AM CDT) Vitamin D, 25 Hydroxy 23.0(L) See comment: ng/mL 05/14/2020 11:48 AM CDT [facility] Comment: The recommendations for 25-Hydroxy Vitamin [...] LAB - CHEMISTRY ORDERABLES Performing Organization Address [facility] Co de Phone Number [facility] [address] [place] [address], [place] [phone] * (ABNORMAL) URIC ACID BLOOD (05/14/2020 10:18 AM CDT) Pathologist [facility] Uric Acid 8.4(H) 2.6 - 7.2 mg/dL 05/14/2020 11:41 AM CDT [facility] Blood BLOOD SPECIMEN / Unknown Lab Venipuncture / Unknown 05/14/2020 10:18 AM CDT 05/14/2020 10:55 AM CDT Glenny Martin MD LAB - CHEMISTRY ORDERABLES [facility] [address] [place] [address], [facility] [phone] * HLA TYPING DNA LOW RESOLUTION DR,DQ (05/14/2020 10:18 AM CDT) [facility] DR DQ Low Resolution DRB1-1 04 05/29/2020 7:59 AM CDT [facility] ([facility]) DR DQ Low Resolution DRB1-2 11 05/29/2020 7:59 AM CDT [facility] ([facility]) DR DQ Low Resolution DQB1-1 03 (DQ7) 05/29/2020 7:59 AM CDT [facility] ([facility]) DR DQ Low Resolution DQB1-2 03 (DQ8) 05/29/2020 7:59 AM CDT [facility] ([facility]) DR DQ Low Resolution DRB3-1 02 05/29/2020 7:59 AM CDT [facility] ([facility]) DR DQ Low Resolution DRB3-2 Negative 05/29/2020 7:59 AM CDT [facility] ([facility]) DR DQ Low Resolution DRB4-1 01 05/29/2020 7:59 AM CDT [facility] ([facility]) DR DQ Low Resolution DRB4-2 Negative 05/29/2020 7:59 AM CDT [facility] ([facility]) DR DQ Low Resolution DRB5-1 Negative 05/29/2020 7:59 AM CDT [facility] ([facility]) DR DQ Low Resolution DRB5-2 Negative 05/29/2020 7:59 AM CDT [facility] ([facility]) DR DQ Low Resolution Methodology SSOP 05/29/2020 7:59 AM CDT [facility] ([facility]) Comment DR DQ Low Resolution - 05/29/2020 7:59 AM CDT [facility] ([facility]) DR DQ Low Resolution test date 05/28/2020 05/29/2020 7:59 AM CDT [facility] ([facility]) Comment: This test was developed and its performance characteristics determined by the [facility]. ??It has not been cleared or [...] high complexity clinical laboratory testing. ??CLIA ID# [id number] Performed at: ??[facility], [address] @ [place], [place] ??[address] Supervisor Welding Equipment Repairer: Jarrod Chin MD, Blood BLOOD SPECIMEN / Unknown Lab Venipuncture / Unknown 05/14/2020 10:18 AM CDT 05/14/2020 10:52 AM CDT Glenny Martin MD LAB - BLOOD BAN K ORDERABLES [facility] ([facility]) [address] [place] [address], [facility] * HLA TYPING DNA LOW RESOLUTION A,B,C (05/14/2020 10:18 AM CDT) ABC DNA A1 03 05/29/2020 7:59 AM CDT [facility] ([facility]) ABC DNA A2 29 05/29/2020 7:59 AM CDT [facility] ([facility]) ABC DNA B1 07 05/29/2020 7:59 AM CDT [facility] ([facility]) ABC DNA B2 44 05/29/2020 7:59 AM CDT [facility] ([facility]) ABC DNA BW1 6 05/29/2020 7:59 AM CDT [facility] ([facility]) ABC DNA BW2 4 05/29/2020 7:59 AM CDT [facility] ([facility]) ABC DNA C1 07 05/29/2020 7:59 AM CDT [facility] ([facility]) ABC DNA C2 - 05/29/2020 7:59 AM CDT [facility] ([facility]) ABC DNA Methodology SSOP 05/29 7:59 AM CDT [facility] ([facility]) Comment ABC DNA - 0 7:59 AM CDT [facility] ([facility]) ABC DNA Test Date 0 05/29/2020 7:59 AM CDT [facility] ([facility]) Comment: This test was developed and its performance characteristics determined by the [facility]. ??It has not been cleared or [...] high complexity clinical laboratory testing. ??CLIA ID# [id number] Performed at: ??[facility], [address] @ [place], [place] ??[address] Supervisor Welding Equipment Repairer: Jarrod Chin MD, Blood BLOOD SPECIMEN / Unknown Lab Venipuncture / Unknown 05/14/2020 10:18 AM CDT 05/14/2020 10:52 AM CDT Glenny Matrin MD LAB - BLOOD BAN K ORDERABLES [facility] ([facility]) [address] [place] [address], [facility] * VARICELLA ZOSTER ANTIBODY IGG (05/14/2020 10:18 AM CDT) [facility] Varicella zoster Virus Antibody IgG 3705.0 IV 05/16/2020 2:46 PM CDT [facility] ([facility]) Comment: INTERPRETIVE INFORMATION: VZV Ab, IgG [...] laboratory at the same time. Performed By: APR [address] [place] [address] Instrumentation Tech: Valerie Mast MD Blood BLOOD SPECIMEN / Unknown Lab Venipuncture / Unknown 05/14/2020 10:18 AM CDT 05/14/2020 10:57 AM CDT Glenny Martin MD LAB - CHEMISTRY ORDERABLES Performing Organization Address [facility]/State/[facility] Co de Phone Number [employer] [facility]) [address] [place] [address], [facility] * MUMPS ANTIBODY IGG (05/14/2020 10:18 AM CDT) Mumps Virus Antibody IgG 17.2 AU/mL 05/16/2020 6:30 PM CDT [employer] ([facility]) Comment: INTERPRETIVE INFORMATION: Mumps Ab, IgG by DESTINY ??8.9 AU/mL or less .... Negative - No significant level of ? detectable IgG mumps virus antibody ??9.0-10.9 AU/mL ....... Equivocal - Repeat testing in 10- ? days may be helpful ??11.0 AU/mL or greater: Positive - IgG antibody to mumps ? virus detected, which may indicate ? a current or past exposure/ ? immunization to mumps virus. The best evidence for current infection is a significant change on two appropriately timed specimens, where both tests are done in the same laboratory at the same time. Performed By: APR [address] [place] [address] Instrumentation Tech: Valerie Mast MD Blood BLOOD SPECIMEN / Unknown Lab Venipuncture / Unknown 05/14/2020 10:18 AM CDT 05/14/2020 10:57 AM CDT Glenny Martin MD LAB - CHEMISTRY ORDERABLES [employer] [facility]) [address] [place] [address], [facility] * RUBEOLA ANTIBODY IGG (05/14/2020 10:18 AM CDT) Measles (Rubeola) Antibody IgG >300.0 AU/mL 05/16/2020 2:46 PM CDT [facility] [employer] ([facility]) Comment: INTERPRETIVE INFORMATION: Measles (Rubeola) Antibody, [...] laboratory at the same time. Performed By: APR [address] [place] [address] Instrumentation Tech: Valerie Mast MD Blood BLOOD SPECIMEN / Unknown Lab Venipuncture / Unknown 05/14/2020 10:18 AM CDT 05/14/2020 10:57 AM CDT Glenny Martin MD LAB - CHEMISTRY ORDERABLES Performing Organization Address [facility]/State/[facility] Co de Phone Number [facility] [employer] ([facility]) [address] [place] [address], [facility] * OPIATES BLOOD (05/14/2020 10:18 AM CDT) [facility] Opiates Screen Negative 05/17/2020 12:06 AM CDT [facility] ([facility]) Comment:REFERENCE RANGE: thr shold: 10 ng/mL Oxycodone Screen Negative 05/17/20 12:06 AM CDT [facility] ([facility]) Comment:REFERENCE RANGE: thr shold: 10 ng/mL Specimen Type Comment 05/17/2020 12:06 AM CDT [facility] ([facility]) Comment: WHOLE BLOOD This specimen was screened by immunoassay at the thresholds listed above. Presumptive positive results have not been confirmed by an alternate method; results are intended for clinical medical purposes. Please contact the laboratory if confirmatory testing is desired. This test was developed and its performance characteristics determined by [employer]. It has not been cleared or approved by the Food and Drug Administration. Blood BLOOD SPECIMEN / Unknown Lab Venipuncture / Unknown 05/14/2020 10:18 AM CDT 05/14/2020 10:53 AM CDT Narrative [facility] ([facility]) - 05/17/2020 12:06 AM CDT Performed at: ??01 - [employer] [address] ??[id number] Supervisor Welding Equipment Repairer: Radha Callahan [facility], Phone: ??[phone] Glenny Martin MD LAB - CHEMISTRY ORDERABLES [facility] ([facility]) [address] [id number] * COCAINE METABOLITE QUANT (05/14/2020 10:18 AM CDT) [facility] Cocaine and Metabolite Blood <20 ng/mL 05/17/2020 11:07 PM CDT [employer] ([facility]) Comment: INTERPRETIVE INFORMATION: Cocaine Metabolite, ?Serum or Plasma, ?Quantitative Methodology: Quantitative Gas Chromatography- Mass Spectrometry Positive cutoff: 20 ng/mL ?? For medical purposes only; not valid for forensic use. The concentration value must be greater than or equal to the cutoff to be reported as positive. Interpretive questions should be directed to the laboratory. Test developed and characteristics determined by APR. See Compliance Statement B: [employer]/CS Performed By: APR [address] [place] [id number] Instrumentation Tech: Valerie Mast MD Blood BLOOD SPECIMEN / Unknown Lab Venipuncture / Unknown 05/14/2020 10:18 AM CDT 05/14/2020 10:55 AM CDT Glenny Martin MD LAB - CHEMISTRY ORDERABLES Performing Organization Address [facility]/ZIP Co de Phone Number [employer] ([facility]) [address] * AMPHETAMINE BLOOD CONFIRMATION (05/14/2020 10:18 AM CDT) Amphetamines Confirmation <20 ng/mL 05/20/2020 12:29 PM CDT [facility] [employer] ([facility]) Comment: INTERPRETIVE INFORMATION: Amphetamines, Serum or [...] laboratory. Test developed and characteristics determined by APR. See Compliance Statement B: [employer] Re/CS Methamphetamine Confirmation <20 ng/mL 05/20/2020 12:29 PM CDT [facility] ([facility]) MDA Confirmation <20 ng/mL 05/20/20 20 12:29 PM CDT [facility] [employer] [facility]) MDMA Confirm <20 ng/mL 05/20/2020 12:29 PM CDT [facility]) MDEA Confirmation <20 ng/mL 020 12:29 PM CDT [facility] [employer] [facility]) Comment: Performed By: APR [address] [place] [address] Instrumentation Tech: Valerie Mast MD Blood BLOOD SPECIMEN / Unknown Lab Venipuncture / Unknown 05/14/2020 10:18 AM CDT 05/14/2020 10:57 AM CDT Glenny Martin MD LAB - CHEMISTRY ORDERABLES Performing Organization Address [facility]/ZIP Co de Phone Number [employer] ([facility]) [address] * NICOTINE + METABOLITES BLOOD (05/14/2020 10:18 AM CDT) Nicotine <2 ng/mL 05/18/2020 10:08 PM CDT [employer] ([facility]) Comment: Consistent with abstinence from nicotine-containing [...] ?? Test developed and characteristics determined by APR. See Compliance Statement B: [email or web address]/CS Performed By: APR [address] [place] [address] Instrumentation Tech: Valerie Mast MD 3-Hydroxy Cotinine <2 ng/mL 2019 10:08 PM CDT [employer] [facility]) Cotinine <2 ng/mL 05/18/2020 10:08 PM CDT [facility] [employer] [facility]) Blood BLOOD SPECIMEN / Unknown Lab Venipuncture / Unknown 05/14/2020 10:18 AM CDT 05/14/2020 10:57 AM CDT Glenny Martin MD LAB - CHEMISTRY ORDERABLES [employer] ([facility]) [address] [place] [address], [facility] * ALCOHOL ETHYL BLOOD (05/14/2020 10:18 AM CDT) [facility] Interpretation Ethanol None Detected None Detected mg/dL 05/14/2020 11:41 AM CDT [facility] Comment:Ethanol levels less than 10 mg/dL are resulted as None detected . Blood BLOOD SPECIMEN / Unknown Lab Venipuncture / Unknown 05/14/2020 10:18 AM CDT 05/14/2020 10:55 AM CDT Glenny Martin MD LAB - CHEMISTRY ORDERABLES Performing Organization Address [facility] Co de Phone Number [address] [address], [facility] [phone] * SYPHILIS ANTIBODY CASCADING REFLEX (05/14/2020 10:18 AM CDT) [facility] Treponema pallidum Antibody Non-react bianca Non-react bianca 05/14/2020 11:47 AM CDT [facility] Comment: No Laboratory evidence of syphilis infection. ?? Note: ??Circulating antibodies may be low or undetectable in early infection. ??If recent exposure is suspected, re-draw sample in 2-4 weeks and repeat testing. Blood BLOOD SPECIMEN / Unknown Lab Venipuncture / Unknown 05/14/2020 10:18 AM CDT 05/14/2020 10:55 AM CDT Glenny Martin MD LAB - SEROLOGY ORDERABLES Performing Organization Address [facility] Co de Phone Number [address] [address], [facility] [phone] * (ABNORMAL) HEMOGLOBIN A1C (05/14/2020 10:18 AM CDT) [facility] Hemoglobin A1c 7.7(H) 4.4 - 6.3 % 05/14/2020 3:37 PM CDT [facility] Estimated Average Glucose 174 mg/dL 05/14/2020 3:37 PM CDT [facility] Comment: HbA1c Interpretation: Treatment target values recommended by ADA and other clinical organizations should be used to evaluate metabolic control in patients. Treatment Target Values: Normal : < 5.7% Pre-diabetes: 5.7-6.4% Diabetes: Equal to or greater than 6.5% Reference: [place] [employer] Standards of Care in Diabetes -2014 In patients 70 years and older consider HbA1c target range of 7.0-7.5% Reference: ??Diabetes Mellitus in Older People: Position Statement on behalf of the International Association of Gerontology and Geriatrics (IAGG), the Diabetes Working Green Party for Older People (EDWPOP), and the International Task Force of Experts in Diabetes. ??Hermelindo Remy, et al. J [place] Medical Directors Association. 2012 Test results diagnostic of diabetes should be repeated for confirmation. The Sebia Capillary 2 assay for the measurement of HbA1c is a National Glycohemoglobin Standardization Program (NGSP)certified method. Blood BLOOD SPECIMEN / Unknown Lab Venipuncture / Unknown 05/14/2020 10:18 AM CDT 05/14/2020 10:55 AM CDT Glenny Martin MD LAB - CHEMISTRY ORDERABLES Performing Organization Address [facility] de Phone Number [facility] [address] [address], [facility] [phone] * (ABNORMAL) MADIHA-CA VIRUS ANTIBODY TO VCA IGG (05/14/2020 10:18 AM CDT) Madiha-Ca Virus Antibody IgG Viral Capsid Antigen 115.0(H) 0.0 - 21.9 U/mL 05/16/2020 5:10 PM CDT [employer] ([facility]) Comment: INTERPRETIVE INFORMATION: Madiha-Ca Virus Antibody to ?Viral Capsid Antigen, IgG ??17.9 U/mL or less.......Not Detected ??18.0-21.9 U/mL..........Indeterminate - Repeat testing in ?10-14 days may be helpful. ??22.0 U/mL or greater....Detected Performed By: APR [address] [place] [address] Instrumentation Tech: Valerie Mast MD Blood BLOOD SPECIMEN / Unknown Lab Venipuncture / Unknown 05/14/2020 10:18 AM CDT 05/14/2020 10:55 AM CDT Glenny Martin MD LAB - CHEMISTRY ORDERABLES [employer] [facility]) [address] * CYTOMEGALOVIRUS ANTIBODY IGG BLOOD (05/14/2020 10:18 AM CDT) [facility] Cytomegalovirus Antibody IgG >10.00 U/mL 05/16/2020 6:28 PM CDT [employer] ([facility]) Comment: INTERPRETIVE INFORMATION: Cytomegalovirus Antibody, IgG [...] laboratory at the same time. Performed By: APR [address] [place] [address] Instrumentation Tech: Valerie Mast MD Blood BLOOD SPECIMEN / Unknown Lab Venipuncture / Unknown 05/14/2020 10:18 AM CDT 05/14/2020 10:55 AM CDT Glenny Martin MD LAB - CHEMISTRY ORDERABLES [facility] ([facility]) [address] * HEPATITIS C ANTIBODY (05/14/2020 10:18 AM CDT) Hepatitis C Antibody Non-react binaca Non-reac tive 05/14/2020 11:49 AM CDT [facility] Comment:Hepatitis C Antibody screen [...] LAB - CHEMISTRY ORDERABLES Performing Organization Address [facility]/ZIP Co de Phone Number [facility] [address] [place] [address], [facility] [phone] * (ABNORMAL) HEPATITIS B SURFACE ANTIBODY (05/14/2020 10:18 AM CDT) Pathologist [facility] Hepatitis B Virus Surface Antibody Reactive( A) Non-react bianca 05/14/2020 11:47 AM CDT [facility] Comment: > 12 mIU/mL Hepatitis B surface Antibody (HBsAb). Reactive for HBsAb - individual is considered immune to Hepatitis B Virus infection. Hepatitis B Surface Antibody Quantitative 72.7(H) <8.0 mIU/mL 05/14/2020 11:47 AM CDT [facility] Comment: Hepatitis B Surface Antibody Numeric Result Interpretation: ? Nonreactive: ?<8.0 mIU/mL ? Indeterminate: ??8.0 - 12.0 mIU/mL ? Reactive: ?>12.0 mIU/mL ? Blood BLOOD SPECIMEN / Unknown Lab Venipuncture / Unknown 05/14/2020 10:18 AM CDT 05/14/2020 10:55 AM CDT Glenny Martin MD LAB - CHEMISTRY ORDERABLES [address] [address], [place] [phone] * HEPATITIS B CORE ANTIBODY (05/14/2020 10:18 AM CDT) HBc Antibody Total Non-reacti ve Non-reacti ve 05/14/2020 11:47 AM CDT [facility] Blood BLOOD SPECIMEN / Unknown Lab Venipuncture / Unknown 05/14/2020 10:18 AM CDT 05/14/2020 10:55 AM CDT Glenny Martin MD LAB - CHEMISTRY ORDERABLES Performing Organization Address City/[facility]/ZIP Co de Phone Number [address] [address], [place] [phone] * HEPATITIS B SURFACE ANTIGEN W RFLX CONFIRMATION (05/14/2020 10:18 AM CDT) Hepatitis B Virus Surface Antigen Non-reacti ve Non-reacti ve 05/14/2020 11:47 AM CDT [facility] Blood BLOOD SPECIMEN / Unknown Lab Venipuncture / Unknown 05/14/2020 10:18 AM CDT 05/14/2020 10:55 AM CDT Glenny Martin MD LAB - CHEMISTRY ORDERABLES [address] [address], [place] [phone] * (ABNORMAL) LIPID PROFILE (05/14/2020 10:18 AM CDT) Cholesterol Total 137 <200 mg/dL 05/14/2020 11:41 AM CDT [facility] HDL 28(L) >40 mg/dL 05/14/2020 11:41 AM [facility] Comment: ATP III Classification of HDL Cholesterol: ? <40 mg/dL: ??Considered a major risk factor. ? >60 mg/dL: ??Considered a negative risk factor. ? LDL Calculated 70 <100 mg/dL 05/14/2020 11:41 AM [facility] Comment: ATP III Classification of LDL Cholesterol: ?<100 mg/dL: ??Optimal ? 100 - 129 mg/dL: ??Near Optimal/Above Optimal ? 130 - 159 mg/dL: ??Borderline High ? 160 - 189 mg/dL: ??High ?>190 mg/dL: ??Very High ? Triglycerides 196(H) <150 mg/dL 05/14/2020 11:41 AM [facility] Comment: ATP III Classification of Triglycerides: ?<150 mg/dL: ??Normal ? 150 - 199 mg/dL: ??Borderline High ? 200 - 400 mg/dL: ??High ?>500 mg/dL: ??Very High Blood BLOOD SPECIMEN / Unknown Lab Venipuncture / Unknown 05/14/2020 10:18 AM CDT 05/14/2020 10:55 AM CDT Glenny Martin MD LAB - CHEMISTRY ORDERABLES [facility] [address] [place] [address], [facility] [phone] * (ABNORMAL) PHOSPHORUS BLOOD (05/14/2020 10:18 AM CDT) Phosphorus 5.1(H) 2.3 - 4.7 mg/dL 05/14/2020 11:41 AM T [facility] Blood BLOOD SPECIMEN / Unknown Lab Venipuncture / Unknown 05/14/2020 10:18 AM CDT 05/14/2020 10:55 AM T Glenny Martin MD LAB - CHEMISTRY ORDERABLES [facility] [address] [place] [address], [facility] [phone] * (ABNORMAL) COMPREHENSIVE METABOLIC PANEL (05/14/2020 10:18 AM CDT) BUN 65(H) 7 - 26 mg/dL 05/14/2020 11:41 AM [facility] Creatinine 5.6(H) 0.6 - 1.2 mg/dL 05/14/2020 11:41 AM [facility] Sodium 142 136 - 145 mmol/L 05/14/2020 11:41 AM [facility] Potassium 3.7 3.5 - 4.5 mmol/L 05/14/2020 11:41 AM [facility] Chloride 101 98 - 107 mmol/L 05/14/2020 11:41 AM [facility] CO2 28 22 - 29 mmol/L 05/14/2020 11:41 AM [facility] Glucose 162(H) 70 - 115 mg/dL 05/14/2020 11:41 AM [facility] Calcium 9.0 8.4 - 10.2 mg/dL 05/14/2020 11:41 AM [facility] Protein Total 6.9 6.0 - 8.3 g/dL 05/14/2020 11:41 AM [facility] Albumin 3.7 3.4 - 5.0 g/dL 05/14/2020 11:41 AM [facility] Bilirubin Total 0.7 0.2 - 1.2 mg/dL 05/14/2020 11:41 AM [facility] Alkaline Phosphatase 140 40 - 150 Units/L 05/14/2020 11:41 AM [facility] ALT 43 0 - 55 Units/L 05/14/2020 11:41 AM [facility] AST 29 5 - 34 Units/L 05/14/2020 11:41 AM [facility] Anion Gap 17 8 - 18 05/14/2020 11:41 AM [facility] BUN/Creatinine Ratio 12 7 - 23 05/14/2020 11:41 AM [facility] Osmolality Calculated 316(H) 270 - 300 mOsm/kg 05/14/2020 11:41 AM [facility] Albumin/Globulin Ratio 1.2 1.1 - 2.3 05/14/2020 11:41 AM [facility] eGFR 11(L) >60 mL/min/1.7 3 m2 05/14/2020 11:41 AM [facility] Blood BLOOD SPECIMEN / Unknown Lab Venipuncture / Unknown 05/14/2020 10:18 AM CDT 05/14/2020 10:55 AM T Glenny Martin MD LAB - CHEMISTRY ORDERABLES [facility] [address] [place] [address], [facility] [phone] * (ABNORMAL) CBC W AUTO DIFFERENTIAL (05/14/2020 10:[address] [facility]) WBC 5.0 3.5 - 10.5 10? 3 /uL 05/14/2020 11:03 AM [facility] RBC 3.45(L) 4.30 - 5.70 10? 6 /uL 05/14/2020 11:03 AM [facility] Hemoglobin 10.7(L) 13.5 - 17.5 g/dL 05/14/2020 11:03 AM [facility] Hematocrit 31.1(L) 39.0 - 50.0 % 05/14/2020 11:03 AM [facility] MCV 90.1 81.0 - 97.0 fL 05/14/2020 11:03 AM [facility] MCH 31.0 28.0 - 34.0 pg 05/14/2020 11:03 AM [facility] MCHC 34.4 32.0 - 36.0 g/dL 05/14/2020 11:03 AM [facility] Platelet Count 232 150 - 400 10? 3 /uL 05/14/2020 11:03 AM [facility] RDW-SD 42.4 36.0 - 50.0 fL 05/14/2020 11:03 AM [facility] RDW-CV 12.9 11.2 - 14.8 % 05/14/2020 11:03 AM [facility] MPV 9.8 9.3 - 12.8 fL 05/14/2020 11:03 AM [facility] nRBC Absolute 0.00 0 10? 3 /uL 05/14/2020 11:03 AM [facility] nRBC Auto 0.0 0 /100 WBC 05/14/2020 11:03 AM [facility] Neutrophils % 54.8 35.0 - 70.0 % 05/14/2020 11:03 AM [facility] Lymphocytes % 31.2 19.7 - 55.1 % 05/14/2020 11:03 AM [facility] Monocytes % 9.4 3.0 - 15.0 % 05/14/2020 11:03 AM [facility] Eosinophils % 3.8 0.0 - 6.0 % 05/14/2020 11:03 AM [facility] Basophil % 0.6 0.0 - 1.5 % 05/14/2020 11:03 AM [facility] Neutrophils Absolute 2.7 1.6 - 7.0 10? 3 /uL 05/14/2020 11:03 AM [facility] Lymphocyte Absolute 1.6 0.8 - 2.9 10? 3 /uL 05/14/2020 11:03 AM [facility] Monocytes Absolute 0.47 0.14 - 0.66 10? 3 /uL 05/14/2020 11:03 AM [facility] Eosinophils Absolute 0.19 0.00 - 0.45 10? 3 /uL 05/14/2020 11:03 AM [facility] Basophils Absolute 0.03 0.00 - 0.06 10? 3 /uL 05/14/2020 11:03 AM [facility] Immature Granulocytes % 0.2 0.0 - 1.0 % 05/14/2020 11:03 AM [facility] Blood BLOOD SPECIMEN / Unknown Lab Venipuncture / Unknown 05/14/2020 10:18 AM CDT 05/14/2020 10:55 AM CDT Glenny Martin MD LAB - HEMATOLOG Y ORDERABLES [facility] [address] [place] [address], [place] [phone] * BLOOD TYPE ABO+ RH PANEL (05/14/2020 10:18 AM CDT) ABO Rh A POS 05/14/2020 12:11 PM CDT [facility] Blood BLOOD SPECIMEN / Unknown Lab Venipuncture / Unknown 05/14/2020 10:18 AM CDT 05/14/2020 11:29 AM CDT Glenny Martin MD LAB - BLOOD BAN K ORDERABLES Performing Organization Address [facility] Co de Phone Number [facility] [address] [place] [address], [place] [phone] * PROTEIN C ACTIVITY (05/14/2020 10:18 AM CDT) Protein C Activity 155 83 - 168 % 05/16/2020 10:47 PM CDT [employer] ([facility]) Comment: INTERPRETIVE INFORMATION: Protein C, Functional [...] reference intervals for this test in the [facility] ([employer] [place]). Performed by APR, [address] [place] [id number] [email or web address] [place], Valerie Mast MD, Lab. Director Blood BLOOD SPECIMEN / Unknown Lab Venipuncture / Unknown 05/14/2020 10:18 AM CDT 05/14/2020 10:48 AM CDT Glenny Martin MD LAB - COAGULATI ON ORDERABLES [employer] ([facility]) [address] * RUBELLA ANTIBODY IGG TITER (05/14/2020 10:18 AM CDT) Rubella Antibody IgG 50.1 IU/mL 05/16/2020 6:32 PM CDT [facility] [employer] ([facility]) Comment: INTERPRETIVE INFORMATION: Rubella Antibody, IgG [...] the amount of antibody present. Performed By: APR [address] [place] [address] Instrumentation Tech: Valerie Mast MD Blood BLOOD SPECIMEN / Unknown Lab Venipuncture / Unknown 05/14/2020 10:18 AM CDT 05/14/2020 10:56 AM CDT Glenny Martin MD LAB - SEROLOGY ORDERABLES [facility] [employer] ([facility]) [address] * TYPE + SCREEN PANEL (05/14/2020 10:06 AM CDT) Pathologist [facility] Antibody Screen NEG 0 12:17 PM CDT [facility] ABO Rh A POS 05/14/2020 12:17 PM CDT [facility] Blood Bank BLOOD SPECIMEN / Unknown Lab Venipuncture / Unknown 05/14/2020 10:06 AM CDT 05/14/2020 11:30 AM CDT Glenny Martin MD LAB - BLOOD BAN K ORDERABLES [facility] [address] [place] [address], [facility] [phone] documented in this encounter Visit Diagnoses Diagnosis Pre-transplant evaluation for kidney transplant- Primary documented in this encounter Care Teams Machine Preservative Filler Relationship Specialty Start Date End Date Aditya Castro Update Information PCP - General 03/06/19 documented as of this encounter
--- OUTSIDE RECORDS SUMMARY | 2024-08-18 13:00 | XMS_ITS | Encounter Summary ---
Author Organization [facility] Address [address] [place] [address] Care Team Providers Care Cena Name Role Phone Aditya Castro Primary Care Provider Unavailab le Encounter Details Date Type Department Care Team (Late st Contact Info) Description 09/30/2020 Orders Only [facility] - COVID Vaccine [address] [place] [phone] Carrington Leos MD [address] [place] [address] Need for vaccination Social History Tobacco Use Types Packs/Day Years [...] as of this encounter Visit Diagnoses Diagnosis Need for vaccination Need for prophylactic vaccination and inoculation against unspecified single disease documented in this encounter Care Teams Cena Relationship Specialty Start Date End Date Aditya Castro Update Information PCP - General 03/06/19 documented as of this encounter
--- OUTSIDE RECORDS SUMMARY | 2024-08-18 13:00 | XMS_ITS | Encounter Summary ---
Author Organization [facility] Address [address] [place] [address] Care Team Providers Care Railroad Car Truck Builder Name Role Phone Aditya Castro Primary Care Provider Unavailab le Reason for Visit * Reason Comments Kidney Transplant Evaluation Encounter Details Date Type Department Care Team (Late st Contact Info) Description 04/06/2020 Telephone [facility] [address] [place] [phone] Gracie Chambers, RN Kidney Transplant Evaluation Social History Tobacco Use [...] or suspected to have Coronavirus / COVID-19? Unable to assess 03/24/2020 3:40 PM CDT documented as of this encounter Progress Notes * Gracie Chambers, RN - 04/06/2020 7:55 PM CDT LMOR regarding scheduling education class. documented in this encounter Plan of Treatment Not on file documented as of this encounter Visit Diagnoses Not on filedocumented in this encounter Care Teams Railroad Car Truck Builder Relationship Specialty Start Date End Date Aditya Castro Update Information PCP - General 03/06/19 documented as of this encounter
--- OUTSIDE RECORDS SUMMARY | 2024-08-18 13:00 | XMS_ITS | Encounter Summary ---
Author Organization [facility] Address [address] [place] [address] Care Team Providers Care Tarring Machine Operator Name Role Phone Aditya Castro Primary Care Provider Unavailab le Encounter Details Date Type Department Care Team (Late st Contact Info) Description 11/13/2020 Orders Only [facility] - COVID Vaccine [address] [place] [phone] Carrington Leos MD [address] [place] [address] Need for vaccination Social History Tobacco Use [...] disease documented in this encounter Care Teams Tarring Machine Operator Relationship Specialty Start Date End Date Aditya Castro Update Information PCP - General 03/06/19 documented as of this encounter
--- OUTSIDE RECORDS SUMMARY | 2024-08-18 13:00 | XMS_ITS | Encounter Summary ---
Author Organization [facility] Address [address] [place] [address] Care Team Providers Care Process Control Tech Name Role Phone Aditya Castro Primary Care Provider Unavailab le Encounter Details Date Type Department Care Team (Late st Contact Info) Description 05/14/2020 7:26 AM CDT Hospital Encounter [facility] [address] [place] [phone] Glenny Martin MD [facility] [place] [address] Discharge Disposition: Home or Self Care Social [...] 12 hours as needed 01/25/2019 epoetin (PROCRIT) 63522 UNIT/ML injection Inject subcutaneously every 14 days ezetimibe (ZETIA) 10 MG tablet Take 10 mg by mouth once daily febuxostat (ULORIC) 40 MG tablet Take 40 mg by mouth 02/25/2019 ferrous sulfate EC (FERROUS SULFATE) 324 (65 Fe) MG tablet Take 324 mg by mouth once daily 02/21/2019 fluticasone propionate (FLONASE) 50 MCG/ACT nasal spray [place] 1 spray into each nostril once daily [...] test strip 04/17/2019 vitamin D, ergocalciferol, (DRISDOL) 29405 units capsule Take 50,000 Units by mouth every 7 days 02/13/2019 selenium sulfide (SELSUN) 2.5 % lotionIndications:Oth er seborrheic dermatitis APPLY TO FACE, LATHER, RINSE OFF IN SHOWER AFTER 3-5 MINUTES DIRECTED 120 mL 3 10/11/2019 07/20/2020 documented as of this encounter Plan of Treatment Not on file documented as of this encounter Procedures Procedure Name Priority Date/Time Associated Diagnosis Comments XR CHEST 2VW Routine 05/14/2020 7:34 AM CDT Pre-transplant evaluation for kidney transplant documented in this encounter Results * XR CHEST PA AND LATERAL (05/14/2020 7:34 AM CDT) Anatomical Region Laterality Modality Chest Radiographic Toma ging 05/14/2020 7:59 AM CDT Impressions 05/15/2020 7:49 AM CDT FINDINGS/IMPRESSION: There is no pulmonary consolidation, pleural effusion, or pneumothorax. The heart size is normal. Dictated by Kristie Bee MD (radiology practitioner assistant). I, Dr. CONRAD GONZALES MD have personally [...] is normal. Dictated by Kristie Bee MD (radiology practitioner assistant). I, Dr. CONRAD GONZALES MD have personally reviewed and interpreted this examination/study. This report was electronically signed by CONRAD GONZALES MD on05/15/2020 7:49 AM . Glenny Martin MD DIAGNOSTIC IMAG ING ORDERABLES documented in this encounter Visit Diagnoses Diagnosis Pre-transplant evaluation for kidney transplant documented in this encounter Care Teams Process Control Tech Relationship Specialty Start Date End Date Aditya Castro Update Information PCP - General 03/06/19 documented as of this encounter
--- OUTSIDE RECORDS SUMMARY | 2024-08-18 13:00 | XMS_ITS | Encounter Summary ---
Author Organization [facility] Address [address] [place] [address] Care Team Providers Care Power Originator Name Role Phone Aditya Castro Primary Care Provider Unavailab le Reason for Visit * Reason Comments Kidney Transplant Evaluation Encounter Details Date Type Department Care Team (Latest Contact Info) Description 07/13/2020 2:00 PM AIRCRAFT STRUCTURAL REPAIRER Office Visit [facility] [address] [place] [id number] Pre-transplant evaluation for kidney transplant (Primary Dx); Hypertensive chronic kidney disease with stage 5 chronic kidney disease or end stage renal disease (HCC); Type 2 diabetes mellitus with chronic kidney disease on chronic dialysis, unspecified whether termite exterminator helper insulin use (HCC); End stage renal disease (HCC); Type 2 diabetes mellitus with diabetic chronic kidney disease, unspecified CKD stage, unspecified whether senior care insulin use (HCC); Hyperlipidemia, unspecified hyperlipidemia type; Obstructive sleep apnea (adult) (pediatric); Obesity, unspecified classification, unspecified obesity type, unspecified whether serious comorbidity present Social History Tobacco Use Types Packs/Day Years Used Date Smoking Tobacco: Never Smokeless Tobacco: Never Alcohol Use Standard Drinks/Week Comments Not Currently 0 (1 standard drink = 0.6 oz pur e alcohol) 35 years ago Sex and Gender Information Value Date Recorded Sex Assigned at Not on file Gender Identity Not on file Sexual Orientation Not on file documented as of this encounter Last Filed Vital Signs Vital Sign Reading Time Taken Comments Blood Pressure 140/60 07/13/2020 1:30 PM AIRCRAFT STRUCTURAL REPAIRER Pulse 65 07/13/2020 1:30 PM AIRCRAFT STRUCTURAL REPAIRER Temperature 36.1 ??C (97 ??F) 07/13/2020 1:30 PM AIRCRAFT STRUCTURAL REPAIRER Respiratory Rate 20 07/13/2020 1:30 PM AIRCRAFT STRUCTURAL REPAIRER Oxygen Saturation 95% 07/13/2020 1:30 PM AIRCRAFT STRUCTURAL REPAIRER Inhaled Oxygen Concentration - - Weight 134.3 kg (296 lb) 07/13/2020 1:30 PM AIRCRAFT STRUCTURAL REPAIRER Height 176.5 cm (5' 9.5 ) 07/13/2020 1:30 PM AIRCRAFT STRUCTURAL REPAIRER Body Mass Index 43.08 07/13/2020 1:30 PM AIRCRAFT STRUCTURAL REPAIRER documented in this encounter Progress Notes * Anali Merino RN - 07/13/2020 3:25 PM CST Pt seen in clinic today by Dr. Martin and Dr. Cano. PMH reviewed including but not limited to DM, HTN, cardiac history with continued possible angina, DVT, gout, exercise and weight loss. Angina- pt reports pain in his left upper chest at times, once or twice a month, sometimes while atrest. He is prescribed ranolazine ER. Pt reports he does not take that everyday. He has had LHC with no intervention needed since c/o angina started. DVT- Reports history of DVT. Pt was on blood thinners for 2 years. Gout-pt reports last flair up in 2017. Exercise- pt states that he feels tired most days. He does try to do squats and he walks his driveway to get exercise. Weight loss- Pt BMI is above 40 which is outside our protocol. Talked to pt about [facility]. Encouraged pt to reach out to them and begin a weight loss program. Pt aware that he may need to stop PD if surgical intervention was needed. Team also talked to pt about extra calories gained with PD. Per RD weight goal is 243lbs. Pt does carry weight in his belly. Reviewed with pt donor types including LD vs DD, increased risk, High KDPI, and Hep C kidneys. RAFT STRUCTURAL REPAIRER * Maritza Hills MD - 07/13/2020 1:39 PM CST Images from the original note were not included. New Kidney Candidate Evaluation Note Juvenal Daigle 1970 [id number] Clinic Visit Date:07/13/2020 Referring MD: Leandro Hagen MD Chief Complaint: ESRD 2/2 T1DM Introductory: is a 49 year old with type 1 diabetes (diagnosed at age 13) as a primary cause of kidney disease. His extensive PMH is notable for obesity, CHF, CAH, [place] s/p 4 stents to RCA,gout, HTN, HLD, BNE. His pertinent surgical history includes appendectomy, lap cholecystectomy, open repair of umbilical hernia with mesh, PD catheter placement. Dialysis was initiated on 11/05/19. He is currently on peritoneal dialysis and removed ~1L per day. Patient reports resting angina, for which he takes ranolazine 2-3 times per month. Recent cath revealed patent RCA stents. Last A1c 7.7 Anticoag: ASA Current Outpatient Medications Medication Sig ??? aspirin (ASPIRIN) 81 MG chew tablet Take 1 tablet by mouth once daily ??? atorvastatin (LIPITOR) 20 MG tablet Take 40 mg by mouth at bedtime ??? atorvastatin (LIPITOR) 40 MG tablet Take 40 mg by mouth at bedtime ??? benzonatate (TESSALON) 200 MG capsule Take 1 capsule by mouth every 6 hours as needed ??? calcitriol (ROCALTROL) 0.25 MCG capsule Take 0.25 mcg by mouth once daily ??? carvedilol (COREG) 25 MG tablet Take 25 mg by mouth 2 times daily with morning and evening meal ??? cetirizine (ZYRTEC) 10 MG tablet Take 10 mg by mouth once daily ??? cloNIDine (CATAPRES) 0.1 MG tablet Take 0.1 mg by mouth 2 times daily ??? clopidogrel (PLAVIX) 75 MG tablet Take 75 mg by mouth once daily ? ? colchicine 0.6 MG tablet Take 0.6 mg by mouth every Monday, Monday & Monday ??? cyclobenzaprine (FLEXERIL) 10 MG tablet Take 10 mg by mouth every 12 hours as needed ??? epoetin (PROCRIT) 66067 UNIT/ML injection Inject subcutaneously every 14 days ??? ezetimibe (ZETIA) 10 MG tablet Take 10 mg by mouth once daily ??? febuxostat (ULORIC) 40 MG tablet Take 40 mg by mouth ??? ferrous sulfate EC (FERROUS SULFATE) 324 (65 Fe) MG tablet Take 324 mg by mouth once daily ??? fluticasone propionate (FLONASE) 50 MCG/ACT nasal spray [place] 1 spray into each nostril once daily ??? furosemide (LASIX) 40 MG tablet Take 80 mg by mouth 2 times daily ??? gemfibrozil (LOPID) 600 MG tablet Take 600 mg by mouth 2 times daily,before breakfast and supper ??? GLUCAGON EMERGENCY injection ??? hydrALAZINE (APRESOLINE) 100 MG tablet Take 100 mg by mouth 3 times daily ??? insulin lispro (ADMELOG) 100 UNIT/ML vial ??? isosorbide mononitrate CR 24hr (IMDUR) 30 MG tablet Take 30 mg by mouth once daily ??? isosorbide mononitrate CR 24hr (IMDUR) 60 MG tablet Take 60 mg by mouth once daily ??? ketoconazole (NIZORAL) 2 % shampoo Apply to affected area once daily ??? nitroGLYCERIN (NITROSTAT) 0.4 MG tablet Dissolve 0.4 mg under the tongue as needed for Angina ??? phentermine (IONAMINE) 30 MG capsule Take 30 mg by mouth every 24 hours ??? raNITIdine (ZANTAC) 300 MG tablet Take 300 mg by mouth 2 times daily ??? ranolazine ER 12hr (RANEXA) 500 MG tablet Take 500 mg by mouth every 12 hours ??? selenium sulfide (SELSUN) 2.5 % lotion APPLY TO FACE, LATHER, RINSE OFF IN SHOWER AFTER 3-5 MINUTES DIRECTED ??? terazosin (HYTRIN) 2 MG capsule Take 2 mg by mouth once daily ??? traMADol (ULTRAM) 50 MG tablet Take 50 mg by mouth every 8 hours as needed ??? TRUE METRIX BLOOD GLUCOSE TEST test strip ??? vitamin D, ergocalciferol, (DRISDOL) 40315 units capsule Take 50,000 Units by mouth every 7 days No current facility-administered medications for this visit. Allergies Allergen Reactions ??? Iv Contrast [Contrast-Iodinated Agents For Ct/Other] Rash ??? Allopurinol Other Shuts my kidneys down per patient. ??? Ticagrelor Rash Past Medical History: Diagnosis Date ??? Anemia ??? Arthritis ??? Arthropathy osteo. back and knees see Dr. Cierra ??? CAD (coronary artery disease) ??? Community acquired pneumonia 2017 [facility] hospitalized with double pneumonia ??? Congestive heart failure ??? Coronary artery disease ??? Diabetes mellitus type 1 teens dx when he was 13. Insulin since he was dx. Insulin pump currently with dexacom. 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 ??? DM (diabetes mellitus) TYPE 1 ??? DVT (deep venous thrombosis) 2017 [facility]. ??? ESRD on peritoneal dialysis ??? Gout ??? History of blood transfusion 2017 during admission for [place] ??? HLD (hyperlipidemia) ??? HTN (hypertension) ??? Hypercholesteremia 5 years on med ??? Hypertension 30's on medications. ??? Kidney disease ??? Myocardial infarction 2017 [facility]. Stent x1 placed. ??? Neuropathy feet ??? Obstructive sleep apnea He is not wearing because it causes congestion makes it harder to breath. ??? Primary gout 2017 Past Surgical History: Procedure Laterality Date ??? Appendectomy ??? Cardiac Catherization ??? CARDIAC STERNAL PRECAUTION total of 4 stents ??? Cataract Removal Bilateral ??? Cholecystectomy ??? Cholecystectomy, Laparoscopic 25 yrs ago ??? Femur Fracture Repair ??? Hernia Repair ??? HERNIA REPAIR, UMBILICAL 2019 mesh used ??? IR PERITONEAL TUNNEL CATH PLACE ??? KNEE CARTILAGE REPAIR Right ??? PTCA Family History Problem Relation Name Age of Onset ??? Hypertension Father ??? Hyperlipidemia Father ??? CAD (Coronary Artery Disease) Father ??? Asthma Neg Hx ??? Eczema Neg Hx ??? Cancer - Other Neg Hx ??? Cancer - Breast Neg Hx ??? Cancer - Skin, Non Melanoma Neg Hx ??? Cancer - Skin, Melanoma Neg Hx ??? CVA Neg Hx ??? Hemophilia Neg Hx ??? Psoriasis Neg Hx Social History Socioeconomic History ??? Marital status: Single Spouse name: Not on file ??? Number of children: Not on file ??? Years of education: Not on file ??? Highest education level: Not on file Occupational History ??? Not on file Tobacco Use ??? Smoking status: Never Smoker ??? Smokeless tobacco: Never Used Substance and Sexual Activity ??? Alcohol use: Not Currently Comment: 35 years ago ??? Drug use: No ??? Sexual activity: Not on file Other Topics Concern ??? Not on file Social History Narrative ??? Not on file Review of Systems Constitutional: Denies weight changes, fatigue or recent illness. Eyes: No blurred or change in vision Ears, nose, mouth, throat, and face: No rhinorrhea, ear pain, hearing loss or difficulty swallowing. Respiratory: Denies shortness of breath or cough. Cardiovascular: Denies chest pain. Gastrointestinal: Denies nausea, vomiting, diarrhea or constipation. Genitourinary: Dialysis access-PD. Integument/breast: Denies rash or wounds. Hematologic/lymphatic: Denies bruising easily or history of thrombosis. History of blood transfusions. None Musculoskeletal: Denies muscle or joint pain. Neurological: Denies numbness, weakness or tremor. Behavioral/Psych: Denies anxiety or depression. Endocrine: Type 1 Diabetic Allergic/Immunologic: Denies allergies to food, environmental triggers or animals. No previous recurrent infections. Physical Exam: BP 140/60 (BP SITE: LEFT ARM, BP POSITION: SITTING, BP CUFF SIZE: 11L) Pulse 65 Temp 97 ??F (36.1 ??C) (Temporal) Resp 20 Ht 5' 9.5 Wt 296 lb SpO2 95% BMI 43.08 kg/m2 General: , male in no acute distress Head: Normocephalic, without obvious abnormality, atraumatic. Eyes: Conjunctivae/corneas clear. PERRL, EOMs intact. Nose: Nares normal. Septum midline Throat: Lips, mucosa, and tongue normal. Teeth and gums normal. Lungs: No increased work of breathing on room air Chest wall: No tenderness or deformity. Heart: Regular rate and rhythm Abdomen: Obese, significantly distended abdomen. Significant adiposity at renal recipient site. Soft, non-tender. No masses, No organomegaly. PD catheter in LLQ. Extremities: BLE pitting edema. Hyperpigmentation of BLE consistent with venous stasis. Dialysis access: PD Pulses: 2+ and symmetric all extremities. Skin: Hyperpigmentation of BLE consistent with venous stasis. Neurologic: CNII-XII grossly intact. GCS 15. Data Review: Recent Labs Component Name 05/14/20 1018 WBC 5.0 RBC 3.45* HGB 10.7* HCT 31.1* MCV 90.1 MCH 31.0 MCHC 34.4 PLTCOUNT 232 Recent Labs Component Name 05/14/20 1018 04/27/19 0917 04/26/19 1242 11/23/18 0325 11/22/18 0733 SODIUM - - - 135* 139 POTASSIUM 3.7 - 4.1 3.8 4.6 CHLORIDE - - - 104 108* CO2 28 - 22 23 21* BUN 65* - 72* 56* 65* CREATININE 5.6* 4.63* 4.9* 2.74* 3.04* GLUCOSE 162* - 227* 195* 45* CALCIUM 9.0 - 9.2 8.3* 9.1 ALKPHOS 140 - 83 - - ALT 43 - 32 - - AST 29 - 30 - - EGFR 11* 14* 13* 25* 22* No results for input(s): MAGNESIUM in the last 04970 hours. Recent Labs Component Name 05/14/20 1018 PHOS 5.1* No results for input(s): TACROLIMUS, TACROCARDIO, TACROGASTRO, TACRONEPHRO in the last 35019 hours. Review of Imaging Reports LHC: 08/26/2019 NM exercise Stress: 04/16/2019 04/17/2017 CXR: 05/14/2020 FINDINGS/IMPRESSION: ?? There is no pulmonary consolidation, pleural effusion, or pneumothorax. The heart size is normal. Panorex: 05/14/2020 No periapical abscess identified Abdominal ultrasound/CT: 05/14/2020 1. Findings of chronic kidney disease with mild atherosclerotic calcifications of the abdominal aorta, common iliac arteries, and external iliac arteries. Moderate to severe atherosclerotic calcifications of the internal iliac arteries. 2. Dense coronary artery calcifications. Aortic annulus calcifications Colonoscopy: 03/08/2019 PPD: negative 01/01/2020 Assessment & Plan: I spent 20 minutes with discussing the risks and benefits of kidney transplant including the need for lifelong immunotherapy and the risk of infection and rejection. Patient responsibilities expected include: medication compliance, frequent lab draws and lifelong follow up with a transplant care provider. We also talked about the risks of surgery including but not exclusive of , bleeding, infection, prolonged ICU and hospital stay, risks of leaks and thrombosis of any of the anastomoses of the new kidney. One year survival of 90-95% was given for the graft. Regular health maintenance was encouraged including diet, exercise and screenings as indicated. ?? At this time, patient's BMI / significant abdominal adiposity preclude him from renal transplant ?? Patient provided with information regarding weight loss, including bariatric procedures ?? Patient to follow up with [facility] weight loss clinic ?? Counseled regarding diet and exercise ?? Goal BMI: 35 (weight 241lbs) ?? Patient to follow up in txp clinic following weight loss ?? Patient will call with any questions or concerns in the interim Outstanding evaluation: -Patient education Maritza Hills MD 07/13/2020 3:41 PM RAFT STRUCTURAL REPAIRER Associated attestation - Glenny Martin MD - 07/14/2020 3:55 PM AIRCRAFT STRUCTURAL REPAIRER Supervising Physicians Attestation: I have personally seen and examined the patient with the resident. I have reviewed the available notes, labs, and investigations. I agree with the resident's note with the following modifications/addendum. This is a 49 year old male with ESRD secondary to Type 1 DM. Dialysis initiated 11/05/19, on PD. Co-morbidities: - Obesity (BMI 43.08) with increasing weight gain even after dietary advice - CAD/ CHF/ [place] S/P x 4 stents, on PLAVIX - HTN - HLD - BEN - Last HgbA1c was 7.7. Questionable resting angina although recent cath revealed patent stents. A/P: At present not a candidate for renal transplant given his increasing weight and current BMI of43. - given information to contact the [facility] weight loss and surgery center. We will be contactingthe team to see how best he can be counseled and be followed up by them to determine if in the [facility] he may be a candidate (if he fails conservative Mx) for a sleeve gastrectomy which would help him lose weight down to a manageable and transplantable BMI. - this will also help with his associated co-morbidities. He will be discussed at the recipient selection meeting. Time spent reviewing studies, tests and notes, history and examination and counseling during this visit was 60 minutes. Greater than 50% of the visit was spent in counseling/discussion of treatment plan and coordination of care. Dr Reyes, thanks for the referral and we will work to see how the patient can be seen at [facility]. Glenny Martin MD validation technician documented in this encounter Plan of Treatment Not on file documented as of this encounter Visit Diagnoses Diagnosis Pre-transplant evaluation for kidney transplant- Primary Hypertensive chronic kidney disease with stage 5 chronic kidney disease or end stage renal disease (HCC) Unspecified hypertensive kidney disease with chronic kidney disease stage V or end stage renal disease Type 2 diabetes mellitus with chronic kidney disease on chronic dialysis, unspecified whether senior care insulin use (HCC) End stage renal disease (HCC) End stage renal disease Type 2 diabetes mellitus with diabetic chronic kidney disease, unspecified CKD stage, unspecified whether termite exterminator helper insulin use (HCC) Hyperlipidemia, unspecified hyperlipidemia type Obstructive sleep apnea (adult) (pediatric) Obesity, unspecified classification, unspecified obesity type, unspecified whether serious comorbidity present documented in this encounter Care Teams Power Originator Relationship Specialty Start Date End Date Aditya Castro Update Information PCP - General 03/06/19 documented as of this encounter
--- OUTSIDE RECORDS SUMMARY | 2024-08-18 13:00 | XMS_ITS | Encounter Summary ---
Author Organization [facility] Address [address] [place] [address] Care Team Providers Care Clinical Nurse Manager Name Role Phone Aditya Castro Primary Care Provider Unavailab le Reason for Visit * Reason Comments Kidney Transplant Evaluation Encounter Details Date Type Department Care Team (Late st Contact Info) Description 05/26/2020 Telephone [facility] [address] [place] [address] Carey Chavez Kidney Transplant Evaluation [...] AM CDT documented as of this encounter Progress Notes * Carey Chavez - 05/26/2020 11:51 AM CDT I called and spoke with pt today to schedule him for sw and rd on 06-23-2020 at 10:00 am and 10:30 am. Pt confirmed date and time will work for him. He will call me back if the date and times will notwork for his support person. Letter created and will be mailed today. 05/26/2020 11:52 AM documented in this encounter Plan of Treatment Not on file documented as of this encounter Visit Diagnoses Not on filedocumented in this encounter Care Teams Clinical Nurse Manager Relationship Specialty Start Date End Date Aditya Castro Update Information PCP - General 03/06/19 documented as of this encounter
--- OUTSIDE RECORDS SUMMARY | 2024-08-18 13:00 | XMS_ITS | Encounter Summary ---
Author Organization [facility] Address [address] [place] [address] Care Team Providers Care Chief Underwriter Name Role Phone Aditya Castro Primary Care Provider Unavailab le Encounter Details Date Type Department Care Team (Late st Contact Info) Description 04/27/2019 Orders Only [facility] [address] [place] [address] Judah Norton MD [address] [id number] Social History Tobacco Use Types Packs/Day Years Used Date Smoking Tobacco: Never Smokeless Tobacco: Never Alcohol Use Standard Drinks/Week Comments No 0 (1 standard drink = 0.6 oz pur e alcohol) Sex and Gender Information Value Date Recorded Sex Assigned at Not on file Gender Identity Not on file Sexual Orientation Not on file documented as of this encounter Plan of Treatment Not on file documented as of this encounter Procedures Procedure Name Priority Date/Time Associated Diagnosis Comments CREATININE CLEARANCE URINE TIMED + BLOOD 04/27/2019 9:17 AM CDT documented in this encounter Results * (ABNORMAL) CREATININE CLEARANCE URINE TIMED + BLOOD (04/27/2019 9:17 AM CDT) Creatinine 4.63(H) 0.70 - 1.33 mg/dL [facility] Comment: For patients >49 years of age, the reference limit for Creatinine is approximately 13% higher for people identified as -Angolan. eGFR by MDRD 14(L) > OR = [...] Lbs 260 [facility] Comment: Test Performed at: [facility] [address] [place], [place] ??[id number] ANA REYES DO,MPH 04/27/2019 9:17 AM CDT 04/27/2019 9:19 AM CDT Judah Norton MD LAB - URINE CHEMISTR Y ORDERABLES Performing Organization Address City/State/[facility] Co de Phone Number [facility] [address] [place] [address] documented in this encounter Visit Diagnoses Not on filedocumented in this encounter Care Teams Chief Underwriter Relationship Specialty Start Date End Date Aditya Castro Update Information PCP - General 03/06/19 documented as of this encounter
--- OUTSIDE RECORDS SUMMARY | 2024-08-18 13:00 | XMS_ITS | Encounter Summary ---
Author Organization [facility] Address [address] [facility] [place] [address] Care Team Providers Care Systems Support Specialist Name Role Phone Aditya Castro Primary Care Provider Unavailab le Encounter Details Date Type Department Care Team (Latest Contact Info) Description 04/26/2019 12:54 PM CDT - 04/26/2019 11:59 PM CDT Hospital Encounter [facility] DIAGNOSTIC RAD OP [address] [place] [phone] Judah Norton MD [address] [place] [phone] Discharge Disposition: Home or Self Care Social [...] on file documented as of this encounter Medications at [...] mouth every 12 hours as needed 01/25/2019 ezetimibe (ZETIA) 10 MG tablet Take 10 mg by mouth once daily febuxostat (ULORIC) 40 MG tablet Take 40 mg by mouth 02/25/2019 ferrous sulfate EC (FERROUS SULFATE) 324 (65 Fe) MG tablet Take 324 mg by mouth once daily 02/21/2019 fluticasone propionate (FLONASE) 50 MCG/ACT nasal spray [place] 1 spray into each nostril once daily 04/24/2019 furosemide (LASIX) 40 MG tablet Take 80 mg by mouth 2 times daily 03/06/2019 gemfibrozil (LOPID) 600 MG tablet Take 600 mg by mouth 2 times daily,before breakfast and supper GLUCAGON EMERGENCY injection 04/18/2019 hydrALAZINE (APRESOLINE) 100 MG tablet Take 100 mg by mouth 3 times daily 02/16/2019 isosorbide mononitrate CR 24hr (IMDUR) 30 MG tablet Take 30 mg by mouth once daily isosorbide mononitrate CR 24hr (IMDUR) 60 MG tablet Take 60 mg by mouth once daily ketoconazole (NIZORAL) 2 % shampoo Apply to affected area once daily 04/23/2019 nitroGLYCERIN (NITROSTAT) 0.4 MG tablet Dissolve 0.4 mg under the tongue as needed for Angina raNITIdine (ZANTAC) 300 MG tablet Take 300 [...] test strip 04/17/2019 vitamin D, ergocalciferol, (DRISDOL) 27976 units capsule Take 50,000 Units by mouth every 7 days 02/13/2019 insulin glargine (LANTUS) pen Inject 30 Units subcutaneously at bedtime 11/23/2018 04/29/2019 Lidocaine 2% gel Urethral/Mucosal (XYLOCAINE) 2 % 01/28/2019 04/29/2019 selenium sulfide (SELSUN) 2.5 % lotionIndications:Oth er seborrheic dermatitis Apply to face, lather, rinsed off in shower after 3-5 min. 30 day supply. 118 mL 11 04/11/2019 10/11/2019 documented as of this encounter Plan of Treatment Not on file documented as of this encounter Procedures Procedure Name Priority Date/Time Associated Diagnosis Comments XR FOOT RIGHT 3VW OR MORE Routine 04/26/2019 1:21 PM CDT Gout, unspecified cause, unspecified chronicity, unspecified site Sicca, unspecified type (HCC) XR FOOT LEFT 3VW OR MORE Routine 04/26/2019 1:21 PM CDT Gout, unspecified cause, unspecified chronicity, unspecified site Sicca, unspecified type (HCC) XR HAND RIGHT 3VW OR MORE Routine 04/26/2019 1:21 PM CDT Gout, unspecified cause, unspecified chronicity, unspecified site Sicca, unspecified type (HCC) XR HAND LEFT 3VW OR MORE Routine 04/26/2019 1:21 PM CDT Gout, unspecified cause, unspecified chronicity, unspecified site Sicca, unspecified type (HCC) XR SI JOINTS 3VW OR MORE Routine 04/26/2019 1:21 PM CDT Gout, unspecified cause, unspecified chronicity, unspecified site Sicca, unspecified type (HCC) XR LUMBAR SPINE 4VW OR MORE Routine 04/26/2019 1:21 PM CDT Gout, unspecified cause, unspecified chronicity, unspecified site Sicca, unspecified type (HCC) documented in this encounter Results * XR FOOT RIGHT 3VW OR MORE [...] Lumbar spine: Mild degeneration. Dictated by Ash Moerira MD (resident). I, Dr. CONRAD GONZALES MD [...] Region Laterality Modality Pelvis, Lower Extremity [facility] 04/26/2019 1:20 PM CDT Impressions 04/26/2019 [...] Ash Moreira MD (resident). I, Dr. CONRAD OGNZALES MD have personally reviewed and interpreted this [...] Judah Norton MD DIAGNOSTIC IMAGING O RDERABLES documented in this encounter Visit Diagnoses Not on filedocumented in this encounter Care Teams Systems Support Specialist Relationship Specialty Start Date End Date Aditya Castro Update Information PCP - General 03/06/19 documented as of this encounter
--- OUTSIDE RECORDS SUMMARY | 2024-08-18 13:00 | XMS_ITS | Encounter Summary ---
Author Organization [facility] Address [address] [place] [address] Care Team Providers Care Organizational Consultant Name Role Phone Aditya Castro Primary Care Provider Unavailab le Reason for Visit * Reason Comments Kidney Transplant Evaluation Encounter Details Date Type Department Care Team (Late st Contact Info) Description 07/10/2020 Telephone [facility] TRANSPLANT [address] [place] [phone] Girish Farmer Kidney Transplant Evaluation Social History Tobacco Use [...] on filedocumented in this encounter Care Teams Organizational Consultant Relationship Specialty Start Date End Date Aditya Castro Update Information PCP - General 03/06/19 documented as of this encounter
--- OUTSIDE RECORDS SUMMARY | 2024-08-18 13:00 | XMS_ITS | Encounter Summary ---
Author Organization [facility] Address [address] [facility] [place] [address] Care Team Providers Care Neon Technician Name Role Phone Aditya Castro Primary Care Provider Unavailab le Reason for Visit * Reason Comments Kidney Transplant Evaluation Encounter Details Date Type Department Care Team (Late st Contact Info) Description 02/05/2020 Telephone [facility] TRANSPLANT [address] [place] [phone] Gracie Chambers, RN Kidney Transplant Evaluation Social [...] on filedocumented in this encounter Care Teams Neon Technician Relationship Specialty Start Date End Date Aditya Castro Update Information PCP - General 03/06/19 documented as of this encounter
--- OUTSIDE RECORDS SUMMARY | 2024-08-18 13:00 | XMS_ITS | Encounter Summary ---
Author Organization [facility] Address [address] [place] [address] Care Team Providers Care Tractor Trailer Moving Van Driver Name Role Phone Aditya Castro Primary Care Provider Unavailab le Encounter Details Date Type Department Care Team (Late st Contact Info) Description 07/13/2020 3:00 PM DATA INTEGRATION ARCHITECT Office Visit [facility] - Nephrology [facility] [place] [phone] Leandro Reyes MD [address] [facility] , [address] [place] [address] Pre-transplant evaluation for kidney transplant (Primary Dx); Hypertensive chronic kidney disease with stage 5 chronic kidney disease or end stage renal disease (HCC); Type 2 diabetes mellitus with diabetic chronic kidney disease, unspecified CKD stage, unspecified whether half-way insulin use (HCC); End stage renal disease (HCC) Social History Tobacco Use Types Packs/Day Years [...] as of this encounter Progress Notes * Cassia Cano MD - 07/13/2020 2:05 PM CST Images from the original note were not included. Transplant Nephrology Attending Juvenal Daigle [phone] [id number] Chief Complaint: Renal Transplant Evaluation Referring Physician: Dr Reyes HPI: Patient is a 49 year old male with history of ESRD 2/2 DM2; History is obtained from the patient. He started PD 10/2019. He does the cycler at night with 2 green bags and 1 purple bag. He is not sure how much fluid he pulls of a night. He makes about 1 liter of urine a day. He was diagnosed with DM2 around 1983-. He was always with insulin. His nurse cousin noted that he had dropped a lot of weight so he got tested. He has retinopathy Both eyes have had both laser andcataract surgery. He has neuropathy in his feet. He denies gastropathy. His blood sugars when he started PD could get up to 500 but now he and his press department manager have better control of his blood sugars. His last Hgb a1c 7.7 He has had HTN since 2017 He has multiple stents in his RCA, which is a dominant artery.He presented with an WY and was foundto have RCA occlusion. A cath 08/26/2019 had 30-40% obtuse marginal stenosis, 30% mid LAD, followed by a 30% LAD . He had 4 stents in the RCA which were wide open. He occasionally has . He has angina 2-3 times a month. The pain can occur at rest. He usually tries to relax and if it hasn't resolved he will take a ranolazine. He is usint the ranolazine prn chest pain. He feels like he can walk a blood. In 2017 he had knee pain and was diagnosed with DVT. He was on anticoagulation for 2 years until the candy waffle assembler stopped it when he started plavix. Can walk a block. Had pneumonia in 2017 went to hospital with SOA and was intubated for 1 week. His last flare of gout was in 2017. He is single he says his brother will be support as well as his daughter who is 18 and living with him. SHx Unemployed. tob none No etoh No ivda or stret drugs FHx Father with high chol, htn heart disease at age 62 Mother alive 60's Constitutional +weight gain HEENT: No vision changes, sinus drainage/congestion, gaining weight Cardiovascular: + CP, No palpitations, ROONEY Respiratory: No SOB, + wheezing, or no cough Gastrointestinal: No N/V/D, changes in stools Genitourinary: No dysuria, obstructive urinary symptoms or incontinence Musculoskeletal: swellling in hands Dermatological: No rashes or recent skin cancer diagnoses Neurological: No numbness/tingling or one-sided weakness Endocrine: + cold intolerance. Active Problem List: Patient Active Problem List Diagnosis Date Noted ??? Pre-transplant evaluation for kidney transplant 03/24/2020 Priority: Not Prioritized Juvenal Daigle 1970 Referring Physiological Chemist: Leandro Reyes Dialysis Info: Type: PD Time: 160 days (11/05/2019) Blood Type: A Body mass index is 37.8 kg/m??. ALERTS Mosaicist: Vashti Lizama NP Past Medical History: Diagnosis Date ??? Anemia ??? Arthritis ??? Arthropathy osteo. back and knees see Dr. Norton ??? CAD (coronary artery disease) ??? Community acquired pneumonia 2017 [facility] hospitalized with double pneumonia ??? Congestive heart failure ??? Coronary artery disease ??? Diabetes mellitus type 1 teens dx when he was 13. Insulin since he was dx. Insulin pump currently with dexacom. Vashti Lizama NPis press department manager. ??? DM (diabetes mellitus) TYPE 1 ??? DVT (deep venous thrombosis) 2017 [facility] ??? ESRD on peritoneal dialysis ??? Gout ??? History of blood transfusion 2017 during admission for W[place] ??? HLD (hyperlipidemia) ??? HTN (hypertension) ??? Hypercholesteremia 5 years on med ??? Hypertension 30's on medications. ??? Kidney disease ??? Myocardial infarction 2017 [facility]. Stent x1 placed. ??? Neuropathy feet ??? [...] ??? KNEE CARTILAGE REPAIR Right ??? PTCA Social History Socioeconomic History ??? Marital status: Single Spouse name: Not on file ??? Number of children: Not on file ??? Years of education: Not on file ??? Highest education level: Not on file Occupational History ??? Not on file Social Needs ??? Financial resource strain: Not on file ??? Food insecurity Worry: Not on file Inability: Not on file ??? Transportation needs Medical: Not on file Non-medical: Not on file Tobacco Use ??? Smoking status: Never Smoker ??? Smokeless tobacco: Never Used Substance and Sexual Activity ??? Alcohol use: Not Currently Comment: 35 years ago ??? Drug use: No ??? Sexual activity: Not on file Lifestyle ??? Physical activity Days per week: Not on file Minutes per session: Not on file ??? Stress: Not on file Relationships ??? Social connections Talks on phone: Not on file Gets together: Not on file Attends lutheran service: Not on file Active member of club or organization: Not on file Attends meetings of clubs or organizations: Not on file Relationship status: Not on file ??? Intimate partner violence Fear of current or ex partner: Not on file Emotionally abused: Not on file Physically abused: Not on file Forced sexual activity: Not on file Other Topics Concern ??? Not on file Social History Narrative ??? Not on file Transplant Surgery Clinic Appt w/: Date: A/P: Nephrology Clinic Appt w/: Date: A/P: Other Consults: Pertinent Previous Committee Presentations: 07/02/2020: Committee Discussion Details: Pt brought to [facility] to discuss his cardiac workup. Team [...] of 2.3 m/sec, mean gradient of 12 mmHg,aortic valve area of 2.0 cm??, and an [...] resting ejection fraction of 75%. Normal augmentation ofall wall segments without evidence of ischemia with [...] acute DVT. There is reduced compressibility and refluxnoted in one of two right popliteal veins. [...] ?? No periapical abscess identified. ?? SW: RD:05/14/2020 BMI= 40.0, Class III Obesity. Waist [...] RD contact. ?4:02 PM Items Still Pending: SW, education ??? 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tejon heart with stable angina pectoris 11/22/2018 Priority: Not Prioritized Past Medical History: Past Medical History: Diagnosis Date ??? Anemia ??? Arthritis ??? Arthropathy osteo. back and knees see Dr. Norton ??? CAD (coronary artery disease) ??? Community acquired pneumonia 2017 [facility] hospitalized with double pneumonia ??? Congestive heart failure ??? Coronary artery disease ??? Diabetes mellitus type 1 teens dx when he was 13. Insulin since he was dx. Insulin pump currently with dexacom. Vashti Vo press department manager. ??? DM (diabetes mellitus) TYPE 1 ??? DVT (deep venous thrombosis) 2017 [facility] ??? ESRD on peritoneal dialysis ??? Gout ??? History of blood transfusion 2017 during admission for [place] ??? HLD (hyperlipidemia) ??? HTN (hypertension) ??? Hypercholesteremia 5 years on med ??? Hypertension 30's on medications. ??? Kidney disease ??? Myocardial infarction 2017 [facility]. Stent x1 placed. ??? Neuropathy feet ??? Obstructive sleep apnea He is not wearing because it causes congestion makes it harder to breath. ??? Primary gout 2017 Past Surgical History: Past Surgical History: Procedure Laterality Date ??? Appendectomy ??? Cardiac Catherization ??? CARDIAC STERNAL PRECAUTION total of 4 stents ??? Cataract Removal Bilateral ??? Cholecystectomy ??? Cholecystectomy, Laparoscopic 25 yrs ago ??? Femur Fracture Repair ??? Hernia Repair ??? HERNIA REPAIR, UMBILICAL 2019 mesh used ??? IR PERITONEAL TUNNEL CATH PLACE ??? KNEE CARTILAGE REPAIR Right ??? PTCA Social History: Social History Socioeconomic History ??? Marital status: Single Spouse name: Not on file ??? Number of children: Not on file ??? Years of education: Not on file ??? Highest education level: Not on file Occupational History ??? Not on file Social Needs ??? Financial resource strain: Not on file ??? Food insecurity Worry: Not on file Inability: Not on file ??? Transportation needs Medical: Not on file Non-medical: Not on file Tobacco Use ??? Smoking status: Never Smoker ??? Smokeless tobacco: Never Used Substance and Sexual Activity ??? Alcohol use: Not Currently Comment: 35 years ago ??? Drug use: No ??? Sexual activity: Not on file Lifestyle ??? Physical activity Days per week: Not on file Minutes per session: Not on file ??? Stress: Not on file Relationships ??? Social connections Talks on phone: Not on file Gets together: Not on file Attends lutheran service: Not on file Active member of club or organization: Not on file Attends meetings of clubs or organizations: Not on file Relationship status: Not on file ??? Intimate partner violence Fear of current or ex partner: Not on file Emotionally abused: Not on file Physically abused: Not on file Forced sexual activity: Not on file Other Topics Concern ??? Not on file Social History Narrative ??? Not on file Family History: Family History Problem Relation Name Age of [...] Hemophilia Neg Hx ??? Psoriasis Neg Hx Allergies: Allergies Allergen Reactions ??? Iv Contrast [Contrast-Iodinated Agents For Ct/Other] Rash ??? Allopurinol Other Shuts my kidneys down per patient. ??? Ticagrelor Rash Medications: Current Outpatient Medications Medication Sig ??? aspirin [...] 12 hours as needed ??? epoetin (PROCRIT) 75355 UNIT/ML injection Inject subcutaneously every 14 days ??? ezetimibe (ZETIA) 10 MG tablet Take 10 mg by mouth once daily ??? febuxostat (ULORIC) 40 MG tablet Take 40 mg by mouth ??? ferrous sulfate EC (FERROUS SULFATE) 324 (65 Fe) MG tablet Take 324 mg by mouth once daily ??? fluticasone propionate (FLONASE) 50 MCG/ACT nasal spray [place] 1 spray into each nostril once daily [...] test strip ??? vitamin D, ergocalciferol, (DRISDOL) 11122 units capsule Take 50,000 Units by mouth every 7 days No current facility-administered medications for this visit. Physical Exam: Wt Readings from Last 3 Encounters: 07/13/20 296 lb 05/15/20 274 lb 14.4 oz 05/14/20 270 lb Temp Readings from Last 3 Encounters: 07/13/20 97 ??F (36.1 ??C) (Temporal) 04/29/19 98 ??F (36.7 ??C) (Oral) 03/07/19 98.1 ??F (36.7 ??C) (Oral) BP Readings from Last 3 Encounters: 07/13/20 140/60 05/14/20 133/53 04/29/19 134/52 Pulse Readings from Last 3 Encounters: 07/13/20 65 05/14/20 70 04/29/19 68 There is no height or weight on file to calculate BMI. General: NAD, WDWN HEENT: NCAT, mucous membranes moist, no thrush Throat: Supple, no LAD or thyromegaly Respiratory: Non-labored breathing, CTAB without wheezes or rales Cardiovascular: RRR with normal S1/S2, no gallop, rub, or murmurs Abdomen: soft, non-tender, non-distended, Large abdomen, PD exit site LLQ Extremities: Appropriately warm, with no pitting OLVIN bilaterally Pulses 2+ bilateral, Feet no lesions Neuro: Grossly normal without focal deficit, no hand tremor Psych: A&O x 3, appropriate affect Labs: Recent Labs Component Name 05/14/20 1018 04/27/19 0917 04/26/19 1242 11/23/18 0325 11/22/18 0733 SODIUM - - - 135* 139 POTASSIUM 3.7 - 4.1 3.8 4.6 CHLORIDE - - - 104 108* CO2 28 - 22 23 21* BUN 65* - 72* 56* 65* CREATININE 5.6* 4.63* 4.9* 2.74* 3.04* GLUCOSE 162* - 227* 195* 45* CALCIUM 9.0 - 9.2 8.3* 9.1 PHOS 5.1* - - - - No results for input(s): MAGNESIUM in the last 68772 hours. Recent Labs Component Name 05/14/20 1018 04/26/19 1242 WBC 5.0 4.9 RBC 3.45* 3.40* HGB 10.7* 10.0* HCT 31.1* 29.5* MCV 90.1 86.8 MCHC 34.4 33.9 PLTCOUNT 232 243 NEUTPCT 54.8 57.8 NEUTABS 2.7 2.8 Recent Labs Component Name 05/14/20 1018 PTHINTACT 653.3* No results for input(s): [id number] in the last 73967 hours. Recent Labs Component Name 05/14/20 1018 CHOL 137 TRIG 196* HDL 28* LDLCALC 70 Urine Protein/Creatinine: pending Assessments and Recommendations: Juvenal Daigle was seen today for kidney transplant evaluation. Risks and benefits of transplant were discussed with the patient. We discussed living donor kidneys. We discussed increased risk donors, hepatitis C donors, and high KDPI kidneys. We discussed the importance of immunosuppression, labs and clinic visits. We discussed that he may require more insulinafter the transplant. The patient understands that he will need to lose weight to be eligible for transplant. We discussed gastric sleeve and that he may have to do hemo for a while after an operation. He will think about his options. All questions and concerns were addressed. Cassia Cano MD 07/13/2020 3:37 PM INTEGRATION ARCHITECT documented in this encounter Plan of Treatment [...] kidney disease, unspecified CKD stage, unspecified whether ad terminal makeup operator insulin use (HCC) End stage renal disease (HCC) End stage renal disease documented in this encounter Care Teams Tractor Trailer Moving Van Driver Relationship Specialty Start Date End Date Aditya Castro Update Information PCP - General 03/06/19 documented as of this encounter
--- OUTSIDE RECORDS SUMMARY | 2024-08-18 13:00 | XMS_ITS | Encounter Summary ---
Author Organization [facility] Address [address] [facility] [place] [address] Care Team Providers Care Senior Financial Consultant Name Role Phone Aditya Castro Primary Care Provider Unavailab le Reason for Visit * Reason Comments Kidney Transplant Evaluation Encounter Details Date Type Department Care Team (Late st Contact Info) Description 03/25/2020 Telephone [facility] TRANSPLANT [address] [place] [phone] Carey Chavez Kidney Transplant Evaluation [...] encounter Progress Notes * Carey Chavez - 03/25/2020 9:29 AM CDT I called and spoke with pt today via phone to let him know that he has been scheduled for testing on 05-14-2020. I reviewed the times and need for his support person to be with him. Pt verbalized understanding and confirmed the date and times will work for him and his support person. 03/25/2020 9:30 AM documented in this encounter Plan of Treatment Not on file documented as of this encounter Visit Diagnoses Not on filedocumented in this encounter Care Teams Senior Financial Consultant Relationship Specialty Start Date End Date Aditya Castro Update Information PCP - General 03/06/19 documented as of this encounter
--- OUTSIDE RECORDS SUMMARY | 2024-08-18 13:00 | XMS_ITS | Encounter Summary ---
Author Organization [facility] Address [address] [place] [address] Care Team Providers Care Flying Shear Operator Name Role Phone Aditya Castro Primary Care Provider Unavailab le Encounter Details Date Type Department Care Team (Latest Contact Info) Description 03/24/2020 Travel Social History Tobacco Use Types Packs/Day Years [...] PM CDT documented as of this encounter Plan of Treatment Not on file documented as of this encounter Visit Diagnoses Not on filedocumented in this encounter Care Teams Flying Shear Operator Relationship Specialty Start Date End Date Aditya Castro Update Information PCP - General 03/06/19 documented as of this encounter
--- OUTSIDE RECORDS SUMMARY | 2024-08-18 13:00 | XMS_ITS | Encounter Summary ---
Author Organization [facility] Address [address] [place] [address] Care Team Providers Care Cardroom Supervisor Name Role Phone Aditya Castro Primary Care Provider Unavailab le Reason for Visit * Reason Comments Kidney Transplant Evaluation Encounter Details Date Type Department Care Team (Late st Contact Info) Description 07/15/2020 Telephone [facility] TRANSPLANT [address] [place] [phone] Anali Merino, RN Kidney Transplant Evaluation Social History Tobacco [...] as of this encounter Progress Notes * Anali Merino RN - 07/15/2020 11:27 AM CST Pt called and notified of PSC decision. Pt aware that due to his BMI of 43.8 the team ultimately decided that his evaluation would need to be closed. The team would like to assist in weight loss journey wherever possible. They would like for pt to reach out to [facility] bariatric program and pt notified to keep me up to date on his progress if he choices one of their programs. Pt can also follow up with our RD as well if needed for assistance. Pt notified team has given him a weight loss goal of 250 lbs to be re referred. Pt states understanding. CH LENDING MANAGER documented in this encounter Plan of Treatment Not on file documented as of this encounter Visit Diagnoses Not on filedocumented in this encounter Care Teams Cardroom Supervisor Relationship Specialty Start Date End Date Aditya Castro Update Information PCP - General 03/06/19 documented as of this encounter
--- OUTSIDE RECORDS SUMMARY | 2024-08-18 13:00 | XMS_ITS | Encounter Summary ---
Author Organization [facility] Address [address] [facility] [place] [address] Care Team Providers Care Cloud Consultant Name Role Phone Aditya Castro Primary Care Provider Unavailab le Reason for Visit * Reason Comments Refill Request Encounter Details Date Type Department Care Team (Late st Contact Info) Description 07/19/2020 Refill [facility] [address] [place] [address] Girish Vasques MD [address] [facility] [address] [place] [address] Refill Request Social History Tobacco Use Types [...] dermatitis documented in this encounter Care Teams Cloud Consultant Relationship Specialty Start Date End Date Aditya Castro Update Information PCP - General 03/06/19 documented as of this encounter
--- OUTSIDE RECORDS SUMMARY | 2024-08-18 13:00 | XMS_ITS | Encounter Summary ---
Author Organization [facility] Address [address] [facility] [place] [address] Care Team Providers Care Human Resources Leader Name Role Phone Aditya Castro Primary Care Provider Unavailab le Reason for Visit * Radiology Services (Routine) - Closed Specialty Diagnoses / Procedures Referred By Aguilar lora Referred To Contact Diagnoses Pre-transplant evaluation for kidney transplant Procedures VAS BILATERAL VENOUS DUPLEX LE Glenny Martin MD [address] [place] [address] [facility] Kidney Transplant [address] [place] [address] Referral ID Status Reason Start Date Expiration Date Visits Re quested Visits Authorized [id number] Closed 05/14/2020 08/13/2020 1 1 Encounter Details Date Type Department Care Team (Late st Contact Info) Description 05/14/2020 10:40 AM CDT Hospital Encounter [facility] VASCULAR US [address] [place] [phone] Glenny Martin MD [address] [facility] [place] [address] Discharge Disposition: Home or Self Care Social [...] 12 hours as needed 01/25/2019 epoetin (PROCRIT) 06956 UNIT/ML injection Inject subcutaneously every 14 days ezetimibe (ZETIA) 10 MG tablet Take 10 mg by mouth once daily febuxostat (ULORIC) 40 MG tablet Take 40 mg by mouth 02/25/2019 ferrous sulfate EC (FERROUS SULFATE) 324 (65 Fe) MG tablet Take 324 mg by mouth once daily 02/21/2019 fluticasone propionate (FLONASE) 50 MCG/ACT nasal spray [place] 1 spray into each nostril once daily [...] test strip 04/17/2019 vitamin D, ergocalciferol, (DRISDOL) 45091 units capsule Take 50,000 Units by mouth every 7 days 02/13/2019 selenium sulfide (SELSUN) 2.5 % lotionIndications:Oth er seborrheic dermatitis APPLY TO FACE, LATHER, RINSE OFF IN SHOWER AFTER 3-5 MINUTES DIRECTED 120 mL 3 10/11/2019 07/20/2020 documented as of this encounter Plan of Treatment Not on file documented as of this encounter Procedures Procedure Name Priority Date/Time Associated Diagnosis Comments VAS BILATERAL VENOUS DUPLEX LE Routine 05/14/2020 11:57 AM CDT Pre-transplant evaluation for kidney transplant documented in this encounter Results * VAS BILATERAL VENOUS DUPLEX LE (05/14/2020 11:57 AM CDT) Anatomical Region Laterality Modality Lower Extremity Intravascular Ul trasound 05/14/2020 11:0 0 AM CDT Narrative Procedure Note Carrington Purvis MD - 05/18/2020 Glenny Martin MD VASCULAR LAB OR DERABLES documented in this encounter Visit Diagnoses Diagnosis Pre-transplant evaluation for kidney transplant documented in this encounter Care Teams Human Resources Leader Relationship Specialty Start Date End Date Aditya Castro Update Information PCP - General 03/06/19 documented as of this encounter
--- OUTSIDE RECORDS SUMMARY | 2024-08-18 13:00 | XMS_ITS | Encounter Summary ---
Author Organization [facility] Address [address] [place] [address] Care Team Providers Care Medical Officer Name Role Phone Aditya Castro Primary Care Provider Unavailab le Reason for Visit * Radiology Services (Routine) - Closed Specialty Diagnoses / Procedures Referred By Aguilar lora Referred To Contact Diagnoses Pre-transplant evaluation for kidney transplant Procedures VAS ARTERIAL ANKLE ARM INDEX Glenny Martin MD [address] [place] [address] [facility] Kidney Transplant [address] [place] [address] Referral ID Status Reason Start Date Expiration Date Visits Re quested Visits Authorized [id number] Closed 05/14/2020 08/13/2020 1 1 Encounter Details Date Type Department Care Team (Late st Contact Info) Description 05/14/2020 10:40 AM CDT Hospital Encounter [facility] VASCULAR US [address] [place] [phone] Glenny Martin MD [address] [facility] [place] [address] Discharge Disposition: Home or Self Care Social [...] 12 hours as needed 01/25/2019 epoetin (PROCRIT) 53484 UNIT/ML injection Inject subcutaneously every 14 days ezetimibe (ZETIA) 10 MG tablet Take 10 mg by mouth once daily febuxostat (ULORIC) 40 MG tablet Take 40 mg by mouth 02/25/2019 ferrous sulfate EC (FERROUS SULFATE) 324 (65 Fe) MG tablet Take 324 mg by mouth once daily 02/21/2019 fluticasone propionate (FLONASE) 50 MCG/ACT nasal spray [place] 1 spray into each nostril once daily [...] test strip 04/17/2019 vitamin D, ergocalciferol, (DRISDOL) 54016 units capsule Take 50,000 Units by mouth every 7 days 02/13/2019 selenium sulfide (SELSUN) 2.5 % lotionIndications:Oth er seborrheic dermatitis APPLY TO FACE, LATHER, RINSE OFF IN SHOWER AFTER 3-5 MINUTES DIRECTED 120 mL 3 10/11/2019 07/20/2020 documented as of this encounter Plan of Treatment Not on file documented as of this encounter Procedures Procedure Name Priority Date/Time Associated Diagnosis Comments VAS ARTERIAL ANKLE ARM INDEX Routine 05/14/2020 11:57 AM CDT Pre-transplant evaluation for kidney transplant documented in this encounter Results * VAS ARTERIAL ANKLE ARM INDEX (05/14/2020 11:57 AM CDT) Anatomical Region Laterality Modality Ankle / Foot, Upper Extremity In travascular Ultrasound 05/14/2020 11:1 9 AM CDT Narrative Procedure Note Carrington uPrvis MD - 05/18/2020 Glenny Martin MD VASCULAR LAB OR DERABLES documented in this encounter Visit Diagnoses Diagnosis Pre-transplant evaluation for kidney transplant documented in this encounter Care Teams Medical Officer Relationship Specialty Start Date End Date Aditya Castro Update Information PCP - General 03/06/19 documented as of this encounter
--- OUTSIDE RECORDS SUMMARY | 2024-08-18 13:00 | XMS_ITS | Encounter Summary ---
Author Organization [facility] Address [address] [facility] [place] [address] Care Team Providers Care Contract Programmer Name Role Phone Aditya Castro Primary Care Provider Unavailab le Encounter Details Date Type Department Care Team (Latest Contact Info) Description 05/14/2020 Travel Social History Tobacco Use Types Packs/Day [...] AM CDT documented as of this encounter Plan of Treatment Not on file documented as of this encounter Visit Diagnoses Not on filedocumented in this encounter Care Teams Contract Programmer Relationship Specialty Start Date End Date Aditya Castro Update Information PCP - General 03/06/19 documented as of this encounter
--- OUTSIDE RECORDS SUMMARY | 2024-08-18 13:00 | XMS_ITS | Encounter Summary ---
Author Organization [facility] Address [address] [facility] [place] [place] [address] Care Team Providers Care Loan Closer Name Role Phone Aditya Castro Primary Care Provider Unavailab le Encounter Details Date Type Department Care Team (Late st Contact Info) Description 03/20/2020 Orders Only [facility] TRANSPLANT [address] [place] [address] Anali Merino RN Pre-transplant evaluation for kidney transplant Social [...] Procedure Name Priority Date/Time Associated Diagnosis Comments ECHO STRESS W DOBUTAMINE Routine 05/14/2020 10:22 AM CDT Pre-transplant evaluation for kidney transplant documented in this encounter Results * ECHO STRESS TEST W DOBUTAMINE (05/14/2020 10:22 AM CDT) Anatomical Region Laterality Modality Chest Echo 05/14/2020 7:50 AM CDT Narrative Procedure Note Zain Xie MD - 05/14/2020 Glenny Martin MD ECHOCARDIOGRAPH Y RADIANT documented in this encounter Visit Diagnoses Diagnosis Pre-transplant evaluation for kidney transplant Pre-transplant evaluation for kidney transplant documented in this encounter Care Teams Loan Closer Relationship Specialty Start Date End Date Aditya Castro Update Information PCP - General 03/06/19 documented as of this encounter
--- OUTSIDE RECORDS SUMMARY | 2024-08-18 13:00 | XMS_ITS | Encounter Summary ---
Author Organization [facility] Address [address] [facility] [place] [address] Care Team Providers Care Swimming Coach Name Role Phone Matthew Aidtya Ellison Primary Care Provider Unavailab le Reason for Visit * Reason Onset Date Comments Med Question 06/25/2019 Encounter Details Date Type Department Care Team (Late st Contact Info) Description 06/25/2019 Telephone [facility] [address] [place] [address] Finn Kramer MD [address] [place] [address] Med Question Social History Tobacco Use Types Packs/Day Years Used Date Smoking Tobacco: Never Smokeless Tobacco: Never Alcohol Use Standard Drinks/Week Comments No 0 (1 standard drink = 0.6 oz pur e alcohol) Sex and Gender Information Value Date Recorded Sex Assigned at Not on file Gender Identity Not on file Sexual Orientation Not on file documented as of this encounter Miscellaneous Notes * Telephone Encounter - Anali Connelly - 06/25/2019 1:41 PM CST Called and spoke with pt he is asking that we call [facility] at [phone] and talk to them about the compression stockings. I called and spoke with Kashif at [facility] and gave clarification the the mmHg I let them know that they should Be the 20-30mmHg . He understood and will get them ready for pt. Anali Connelly E DIRECTOR * Telephone Encounter - Theodore Huerta - 06/25/2019 10:40 AM CST Pt called saying patient pharmacy just needs clarification of a number on the prescription for compression socks. Please Advise. E DIRECTOR documented in this encounter Plan of Treatment Not on file documented as of this encounter Visit Diagnoses Not on filedocumented in this encounter Care Teams Swimming Coach Relationship Specialty Start Date End Date Aditya Castro Update Information PCP - General 03/06/19 documented as of this encounter
--- OUTSIDE RECORDS SUMMARY | 2024-08-18 13:00 | XMS_ITS | Encounter Summary ---
Author Organization [facility] Address [address] [facility] [place] [address] Care Team Providers Care Helper Metal Hanging Name Role Phone Aditya Castro Primary Care Provider Unavailab le Reason for Visit * Reason Comments Kidney Transplant Evaluation Encounter Details Date Type Department Care Team (Late st Contact Info) Description 02/17/2020 Telephone [facility] TRANSPLANT [address] [place] [address] Gracie Chambers, RN Kidney Transplant Evaluation [...] Progress Notes * Gracie Chambers, RN - 03/02/2020 4:25 PM CDT Spoke to pt and updated status of evaluation and informed that Tika would be his coordinator. Apologized for the several week delay in getting back to him but we could not get echo that was reportedly done. Pt was very happy to just have referral open. Pre-screen: Reviewed referral for evaluation for a Kidney/pancreas transplant. Pt is a 49 y/o M with ESRD d/t DMI. Pt also has a hx of CAD (re-implantation of stents in ), HTN, HLD, OA, BEN, hx DVT, neuropathy and 2HPT. BMI 37.7. Pt is not a candidate for pancreas d/t BMI. A1c 8.6, Phos 5.1, ipth 304. Pt has been on PD since starting dialysis 11/07'. Endocrinology note mentions PHTN and that pt has had an echo with an okay EF (?) but RVSP not mentioned. Called pt who stated that he has had an echo some time in 2019 at [facility]. Will request before proceeding with referral. 03/02/20 update: Have called several times for updated echo but there does not appear to be one. Will open referral. documented in this encounter Plan of Treatment Not on file documented as of this encounter Visit Diagnoses Not on filedocumented in this encounter Care Teams Helper Metal Hanging Relationship Specialty Start Date End Date Aditya Castro Update Information PCP - General 03/06/19 documented as of this encounter
--- OUTSIDE RECORDS SUMMARY | 2024-08-18 13:00 | XMS_ITS | Encounter Summary ---
Author Organization [facility] Address [address] [place] [address] Care Team Providers Care Military Source Operations Officer Name Role Phone Aditya Castro Primary Care Provider Unavailab le Encounter Details Date Type Department Care Team (Late st Contact Info) Description 10/16/2020 Orders Only [facility] - COVID Vaccine [address] [place] [phone] Carrington Leos MD [address] [place] [address] Need for vaccination Social History Tobacco Use [...] disease documented in this encounter Care Teams Military Source Operations Officer Relationship Specialty Start Date End Date Aditay Castro Update Information PCP - General 03/06/19 documented as of this encounter
--- OUTSIDE RECORDS SUMMARY | 2024-08-18 13:00 | XMS_ITS | Encounter Summary ---
Author Organization [facility] Address [address] [facility] [place] [address] Care Team Providers Care Partner Cco Name Role Phone Aditya Castro Primary Care Provider Unavailab le Reason for Visit * Reason Comments Kidney Transplant Evaluation Encounter Details Date Type Department Care Team (Late st Contact Info) Description 05/12/2020 Telephone [facility] TRANSPLANT [address] [place] [phone] Magali Ramos Kidney Transplant Evaluation Social History Tobacco Use [...] as of this encounter Progress Notes * Magali Ramos - 05/12/2020 9:30 AM CDT Spoke with pt and reminded him of his appointments that he is scheduled for on 05/14 beginning at 7:30 am. Pt was also reminded that he must have a support person for the SW consult. Pt verbalized understanding documented in this encounter Plan of Treatment Not on file documented as of this encounter Visit Diagnoses Not on filedocumented in this encounter Care Teams Partner Cco Relationship Specialty Start Date End Date Aditya Castro Update Information PCP - General 03/06/19 documented as of this encounter
--- OUTSIDE RECORDS SUMMARY | 2024-08-18 13:00 | XMS_ITS | Encounter Summary ---
Author Organization [facility] Address [address] [facility] [place] [address] Care Team Providers Care Director Business Management Name Role Phone Matthew Aditya Ellison Primary Care Provider Unavailab le Reason for Visit * Reason Comments Gout pain-low back, hips, knees, shoulders, hands and feet Encounter Details Date Type Department Care Team (Late st Contact Info) Description 04/29/2019 12:30 PM CDT Office Visit [facility] Rheumatology [address] [place] [address] Judah Norton MD [address] [place] [phone] Gout, unspecified cause, unspecified chronicity, unspecified site (Primary Dx) Social History Tobacco Use Types Packs/Day Years [...] Sign Reading Time Taken Comments Blood Pressure 134/52 04/29/2019 12:54 PM CDT Pulse 68 04/29/2019 12:54 PM CDT Temperature 36.7 ??C (98 ??F) 04/29/2019 12:54 PM CDT Respiratory Rate - - Oxygen Saturation - - Inhaled Oxygen Concentration - - Weight 116.1 kg (256 lb) 04/29/2019 12:54 PM CDT Height 175.3 cm (5' 9 ) 04/29/2019 12:54 PM CDT Body Mass Index 37.8 04/29/2019 12:54 PM CDT documented in this encounter Progress Notes * Carlton Delarosa MD - 04/29/2019 1:21 PM CDT (Prob #1) Gout (Prob #2) Miltiple Co-morbidities (Labs) Recent Labs Component Name 04/26/19 1242 WBC 4.9 RBC 3.40* HGB 10.0* HCT 29.5* MCV 86.8 MCHC 33.9 PLTCOUNT 243 NEUTPCT 57.8 NEUTABS 2.8 ESR 34; CRP <0.5 SHAWN/RF Negative; Recent Labs Component Name 04/27/19 0917 04/26/19 1242 11/23/18 0325 11/22/18 0733 SODIUM - - 135* 139 POTASSIUM - 4.1 3.8 4.6 CHLORIDE - - 104 108* CO2 - 22 23 21* BUN - 72* 56* 65* CREATININE 4.63* 4.9* 2.74* 3.04* GLUCOSE - - 195* 45* CALCIUM - 9.2 8.3* 9.1 ALT - 32 - - ALKPHOS - 83 - - AST - 30 - - EGFR 14* 13* 25* 22* EGFRAFR 16* - 30* 27* Uric Acid 4.4; CK 280; LDH 268; Vit D 15; Xrays hands/feet films show erosions compatible with gout and neuropathic changes.. Mild DJD LS/SI area; (Subj) Patient remains on Uloric 40 mg/d and colchicine 0.6 mg M//; Continues to have diffuse arthralgias with one hour AM stiffness. Moderate fatigue. Taking acetaminophen and patient has tried ibuprofen. No real gouty flares. Some warm skin spots at times. Needs close FU with PMD/Renal/Pain management (Obj) BP 134/52 (BP SITE: LEFT ARM, BP POSITION: SITTING, BP CUFF SIZE: 11) Pulse 68 Temp 98 ??F (36.7 ??C) (Oral) Ht 5' 9 (1.753 m) Wt 256 lb (116.1 kg) BMI 37.8 kg/m2 (Skin) Dry scaly lesions. Venous stasis cahnges LE (HEENT) No mucosal ulcers. Moist membranes. (General) Diffuse paravertebral tenderness. Moderate LS/SI tenderness; (Extrem) HNs DIPs; No lissa synovitis. Hips/Knees S0T1; No enthesitis. MS= bilat; (Assess) Gout stable on present meds with no flares. Diffuse OA Spine/Hips/Knees. Vit D Deficient (Plan) Continue same meds with labs q 4 months. Close FU with PMD/Renal/Pain Management. Defrer to renal to treat Vit D Deficient. Needs pain management to define Better medical regimen. Could benefit from PT/OT. RTO PRN or sooner if renal desires. Carlton Delarosa MD, FACP, FAAP, MACR [employer] and Pediatric Rheumatology Professor of Internal Medicine,Pediatrics, and Molecular Immunology [facility] documented in this encounter Plan of Treatment Not on file documented as of this encounter Visit Diagnoses Diagnosis Gout, unspecified cause, unspecified chronicity, unspecified site- Primary documented in this encounter Care Teams Director Business Management Relationship Specialty Start Date End Date Aditya Castro Update Information PCP - General 03/06/19 documented as of this encounter
--- OUTSIDE RECORDS SUMMARY | 2024-08-18 13:00 | XMS_ITS | Encounter Summary ---
Author Organization [facility] Address [address] [facility] [place] [address] Care Team Providers Care Flat Sorting Machine Clerk Name Role Phone Aditya Castro Primary Care Provider Unavailab le Encounter Details Date Type Department Care Team (Late st Contact Info) Description 05/14/2020 7:26 AM CDT Hospital Encounter [facility] DIAGNOSTIC RAD OP [address] [place] [phone] Glenny Martin MD [facility] [place] [address] Discharge Disposition: Home or Self Care Social [...] 12 hours as needed 01/25/2019 epoetin (PROCRIT) 73732 UNIT/ML injection Inject subcutaneously every 14 days ezetimibe (ZETIA) 10 MG tablet Take 10 mg by mouth once daily febuxostat (ULORIC) 40 MG tablet Take 40 mg by mouth 02/25/2019 ferrous sulfate EC (FERROUS SULFATE) 324 (65 Fe) MG tablet Take 324 mg by mouth once daily 02/21/2019 fluticasone propionate (FLONASE) 50 MCG/ACT nasal spray [place] 1 spray into each nostril once daily [...] test strip 04/17/2019 vitamin D, ergocalciferol, (DRISDOL) 72760 units capsule Take 50,000 Units by mouth every 7 days 02/13/2019 selenium sulfide (SELSUN) 2.5 % lotionIndications:Oth er seborrheic dermatitis APPLY TO FACE, LATHER, RINSE OFF IN SHOWER AFTER 3-5 MINUTES DIRECTED 120 mL 3 10/11/2019 07/20/2020 documented as of this encounter Plan of Treatment Not on file documented as of this encounter Procedures Procedure Name Priority Date/Time Associated Diagnosis Comments XR PANOREX Routine 05/14/2020 7:35 AM CDT Pre-transplant evaluation for kidney transplant documented in this encounter Results * XR PANOREX (05/14/2020 7:35 AM CDT) Anatomical Region Laterality Modality Head Radiographic Toma ging 05/14/2020 7:56 AM CDT Impressions 05/15/2020 7:51 AM CDT IMPRESSION: No periapical abscess identified. Dictated by Kristie Bee MD (residential sales rep). I, Dr. CONRAD GONZALES MD have personally [...] abscess identified. Dictated by Kristie Bee MD (residential sales rep). I, Dr. CONRAD GONZALES MD have personally reviewed and interpreted this examination/study. This report was electronically signed by CONRAD GONZALES MD on05/15/2020 7:51 AM . Glenny Martin MD DIAGNOSTIC IMAG ING ORDERABLES documented in this encounter Visit Diagnoses Diagnosis Pre-transplant evaluation for kidney transplant documented in this encounter Care Teams Flat Sorting Machine Clerk Relationship Specialty Start Date End Date Aditya Castro Update Information PCP - General 03/06/19 documented as of this encounter
--- OUTSIDE RECORDS SUMMARY | 2024-08-18 13:00 | XMS_ITS | Encounter Summary ---
Author Organization [facility] Address [address] [facility] [place] [address] Care Team Providers Care Interior Horticulturist Name Role Phone Aditya Castro Primary Care Provider Unavailab le Reason for Visit * Reason Comments Refill Request Encounter Details Date Type Department Care Team (Late st Contact Info) Description 10/11/2019 Refill [facility] [address] [place] [address] Girish Vasques MD [address] [facility] [address] [place] [address] Refill Request Social History Tobacco Use Types [...] * Telephone Encounter - Anali Connelly - 10/11/2019 8:01 AM CST LV 04/11/19 No follow up Anali Connelly ATIONAL RISK ANALYST documented in this encounter Plan of Treatment Not on file documented as of this encounter Visit Diagnoses Diagnosis Other seborrheic dermatitis documented in this encounter Care Teams Interior Horticulturist Relationship Specialty Start Date End Date Aditya Castro Update Information PCP - General 03/06/19 documented as of this encounter
--- OUTSIDE RECORDS SUMMARY | 2024-08-18 13:00 | XMS_ITS | Encounter Summary ---
Author Organization [facility] Address [address] [facility] [place] [address] Care Team Providers Care Extractor Tender Raw Stock Name Role Phone Aditya Castro Primary Care Provider Unavailab le Reason for Visit * Reason Comments Kidney Transplant Evaluation Encounter Details Date Type Department Care Team (Late st Contact Info) Description 02/04/2020 Telephone [facility] TRANSPLANT [address] [place] [address] Gracie Chambers, RN Kidney Transplant [...] Progress Notes * Gracie Chambers, RN - 02/04/2020 5:45 PM CDT Spoke to pt about referral and that he was not a candidate for pancreas d/t BMI of 37.7. He asked if he lost the weight if he would be considered but he also had stents placed last year in November (reimplantation of stents) and so I told him that YES, we would consider him but we would also have to look closely at his heart as he had a hx of CAD (hence the stents). He went off about people playing God and making decisions because they felt like it. Discussed organ shortage and organ allocation and how transplant is elective (as nice as I could) but he was pretty hot. Thanked me at the end of the phone call but he was still not happy. Is aware that we will need to castillo down his last echo because of the mention of PHTN. Stated it wasdone at [facility]. He also said that he was due for a f/u with cardiology and I encouraged him to do so. Pre-screen: Reviewed referral for evaluation for a [...] has been on PD since starting dialysis . Endocrinology note mentions PHTN and that pt has had an echo with an okay EF (?) but RVSP not mentioned. Called pt who stated that he has had an echo some time in 2019 at [facility]. Will request before proceeding with referral. documented in this encounter Plan of Treatment Not on file documented as of this encounter Visit Diagnoses Not on filedocumented in this encounter Care Teams Extractor Tender Raw Stock Relationship Specialty Start Date End Date Aditya Castro Update Information PCP - General 03/06/19 documented as of this encounter
--- OUTSIDE RECORDS SUMMARY | 2024-08-18 13:00 | XMS_ITS | Encounter Summary ---
Author Organization [facility] Address [address] [place] [address] Care Team Providers Care Teller Supervisor Name Role Phone Aditya Castro Primary Care Provider Unavailab le Reason for Referral * Radiology Services (Routine) - Closed Specialty Diagnoses / Procedures Referred By Aguilar lora Referred To Contact Diagnoses Pre-transplant evaluation for kidney transplant Procedures VAS ARTERIAL ANKLE ARM INDEX Glenny Martin MD [address] [place] [address] [facility] Kidney Transplant [address] [place] [phone] Referral ID Status Reason Start Date Expiration Date Visits Re quested Visits Authorized [id number] Closed 05/14/2020 08/13/2020 1 1 * Radiology Services (Routine) - Closed Specialty Diagnoses / Procedures Referred By Aguilar lora Referred To Contact Diagnoses Pre-transplant evaluation for kidney transplant Procedures VAS BILATERAL VENOUS DUPLEX LE Glenny Martin MD [address] [place] [address] [facility] Kidney Transplant [address] [place] [phone] Referral ID Status Reason Start Date Expiration Date Visits Re quested Visits Authorized [id number] Closed 05/14/2020 08/13/2020 1 1 * Radiology Services (Routine) - Closed Specialty Diagnoses / Procedures Referred By Aguilar lora Referred To Contact Diagnoses Pre-transplant evaluation for kidney transplant Procedures CT ABDOMEN AND PELVIS NON IV CONTRAST Glenny Martin MD [address] [place] [address] [facility] Kidney Transplant [address] [place] [phone] Referral ID Status Reason Start Date Expiration Date Visits Re quested Visits Authorized [id number] Closed 05/14/2020 08/13/2020 1 1 * Radiology Services (Routine) - Closed Specialty Diagnoses / Procedures Referred By Aguilar lora Referred To Contact Diagnoses Pre-transplant evaluation for kidney transplant Procedures ECHO STRESS TEST W DOBUTAMINE Glenny Martin MD [address] [place] [address] [facility] Kidney Transplant [address] [place] [phone] Referral ID Status Reason Start Date Expiration Date Visits Re quested Visits Authorized [id number] Closed 05/14/2020 08/13/2020 1 1 Reason for Visit * Reason Comments Kidney Transplant Evaluation health hist ory Encounter Details Date Type Department Care Team (Late st Contact Info) Description 03/20/2020 Telephone [facility] TRANSPLANT [address] [place] [phone] Anali Merino RN Kidney Transplant Evaluation (health history) Social History Tobacco Use Types Packs/Day Years [...] of this encounter Progress Notes * Anali Merino, RN - 03/20/2020 3:41 PM CDT HH obtained. Pt was unable to give 2 caregivers at time of call. Asked pt to talk with family and friends and be prepared to give name of second caregiver prior to starting testing. Pt has a family caseworker Dr. Ortega. 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 In 2019 admitted to [facility] with chest pain and SOB. Pt believes [address] at that time, remains on plavix. Pt has BEN diagnosed after a sleep study. He states that he does not wear it often due to congestion he gets while wearing. He says that the congestion causes him to have more difficulty breathing. Iexplained possible side effects from not wearing CPAP, and encouraged him to reach out to prescribing doctor. Pt has had DM since his teens. Has always been on insulin shots. He currently has a pump. 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 He states that he is having difficulty with high blood sugars at night with his PD and he is working with her to get that better under control. Pt PMI is 37.8. Encouraged him to work on a more health diet and increase activity. I told him I would ask the RD to reach out with a diet plan to start prior to coming in for testing. Colonoscopy completed in 2019 at [facility]. Pt thinks the recommendation was a 5 year followup. Will request records. Pt sees a human resources team member regularly. Reviewed process and test needed. Let pt know AA will call with date and times. Pt states ok and voices no questions at this time. * Anali Merino RN - 03/20/2020 2:03 PM CDT Provided patient with an overview of the transplant evaluation process. Patient educated on the following: ?? Process for obtaining health history ?? Required testing, clinic appointments, and the importance of compliance ? Potential for uncovering new medical conditions which could lead to a change in treatment plan ?? Potential duration of process ?? Importance of maintaining caregivers ?? Importance of maintaining insurance and notifying the transplant team with any changes ?? How to access SRTR data ?? Option to stop the evaluation process at any time After discussion, patient verbalizes understanding and is agreeable to proceed with evaluation. documented in this encounter Plan of Treatment Not on file documented as of this encounter Results * VAS ARTERIAL ANKLE ARM INDEX (05/14/2020 11:57 AM CDT) Anatomical Region Laterality Modality Ankle / Foot, Upper Extremity In travascular Ultrasound 05/14/2020 11:1 9 AM CDT Narrative Procedure Note Carrington Purvis MD - 05/18/2020 Glenny Martin MD VASCULAR LAB OR DERABLES * VAS [...] annulus calcifications. Dictated by Ash Moreira MD (university president). I, Dr. HANNAH SPENCE have personally [...] annulus calcifications. Dictated by Ash Moreira MD (university president). I, Dr. HANNAH SPENCE have personally [...] Martin MD ECHOCARDIOGRAPH Y RADIANT * HLA ANTIBODY SCREEN LUM CLASS 1 ID (05/14/2020 10:18 AM CDT) % PRA 4 05/29/2020 7:59 AM CDT [facility] ([employer]) Class 1 LUM Specificity - 05/29/2020 7:59 AM CDT [facility] ([facility]) Class 1 LUM Test Date 0 05/29/2020 7:59 AM CDT [facility] ([facility]) Comment: This test was developed and its performance characteristics determined by the [facility] [employer] [facility]. ??It has not been cleared or [...] high complexity clinical laboratory testing. ??CLIA ID# [id number] Performed at: ??[facility] [employer] [facility], [address] @ [place], [place] ??[phone] Cane Weigher Helper: Jarrod Chin MD, Blood BLOOD SPECIMEN / Unknown Lab Venipuncture / Unknown 05/14/2020 10:18 AM CDT 05/14/2020 10:52 AM CDT Glenny Martin MD LAB - BLOOD BAN K ORDERABLES [facility] ([facility]) [address] [place] [address], [facility] * HLA ANTIBODY SCREEN LUM CLASS 2 ID (05/14/2020 10:18 AM CDT) % PRA 90 05/29/2020 7:59 AM CDT [facility] ([facility]) Class 2 LUM Specificity - 05/29/2020 7:59 AM CDT [facility] ([facility]) Class 2 LUM Test Date 0 05/29/2020 7:59 AM CDT [facility] ([facility]) Comment: This test was developed and its performance characteristics determined by the [facility]. ??It has not been cleared or approved [...] high complexity clinical laboratory testing. ??CLIA ID# [id number] Performed at: ??[facility] [employer] Laboratory, [address] @ [place], [place] ??[address] Cane Weigher Helper: Jarrod Chin MD, Blood BLOOD SPECIMEN / Unknown Lab Venipuncture / Unknown 05/14/2020 10:18 AM CDT 05/14/2020 10:52 AM CDT Glenny Martin MD LAB - BLOOD BAN K ORDERABLES Performing Organization Address City/[facility]/ZIP Co de Phone Number [facility] ([facility]) [address] [place] [phone], [facility] * HIV-1 HIV-2 ANTIGEN/ANTIBODY (05/14/2020 10:18 AM CDT) HIV Antigen/Antibod y 1 & 2 Non-reacti ve Non-react bianca 05/14/2020 11:49 AM CDT [facility] Comment:Neither HIV-1 p24 An tigen nor HIV-1/HIV-2 Antibodies are detected. Blood BLOOD SPECIMEN / Unknown Lab Venipuncture / Unknown 05/14/2020 10:18 AM CDT 05/14/2020 10:57 AM CDT Glenny Martin MD LAB - HEMATOLOG Y ORDERABLES Performing Organization Address City/[facility]/ZIP Co de Phone Number [address] [address], [facility] [phone] * (ABNORMAL) HEPATITIS A ANTIBODY (05/14/2020 10:18 AM CDT) Hepatitis A Virus Antibody Total Positive( A) Negative 05/16/2020 11:02 AM CDT [employer] ([facility]) Comment: The positive anti-HAV is consistent with recent or remote Hepatitis A infection or antibody response to HAV vaccination. False positive anti-HAV can occur. Performed by [employer], [address] [place] [id number] [email or web address], Valerie Mast MD, Lab. Director Blood BLOOD SPECIMEN / Unknown Lab Venipuncture / Unknown 05/14/2020 10:18 AM CDT 05/14/2020 10:57 AM CDT Glenny Martin MD LAB - CHEMISTRY ORDERABLES Performing Organization Address City/[facility]/ZIP Co de Phone Number [employer] ([facility]) [address] * (ABNORMAL) PTH INTACT ([facility]) (05/14/2020 10:18 AM CDT) [facility] PTH Intact 653.3(H) 8.0 - 77.0 pg/mL 05/14/2020 11:34 AM CDT [facility] Blood BLOOD SPECIMEN / Unknown Lab Venipuncture / Unknown 05/14/2020 10:18 AM CDT 05/14/2020 10:55 AM CDT Glenny Martin MD LAB - CHEMISTRY ORDERABLES Performing Organization Address [facility]/ZIP Co de Phone Number [place] [address] [place] [address], [facility] [phone] * TOXOPLASMA GONDII ANTIBODY IGG (05/14/2020 10:18 AM CDT) [facility] Toxoplasma Antibody IgG <3.0 IU/mL 05/16/2020 6:32 PM CDT [employer] ([facility]) Comment: INTERPRETIVE INFORMATION: Toxoplasma Ab, IgG [...] the amount of antibody present. Performed By: [employer] [address] [place] [address] Off Premise Service Representative: Valerie Mast MD Blood BLOOD SPECIMEN / Unknown Lab Venipuncture / Unknown 05/14/2020 10:18 AM CDT 05/14/2020 10:58 AM CDT Glenny Martin MD LAB - CHEMISTRY ORDERABLES [facility] [employer] ([facility]) [address] [place] [address], [facility] * STRONGYLOIDES ANTIBODY IGG (05/14/2020 10:18 AM CDT) Strongyloides Antibody IgG 0.2 <=0.9 IV 05/17/2020 10:58 PM CDT [facility] [employer] ([facility]) Comment: INTERPRETIVE INFORMATION: Strongyloides Ab, IgG [...] also result in false-positive results. Performed By: [facility] [employer] [address] [place] [address] Off Premise Service Representative: Valerie Mast MD Blood BLOOD SPECIMEN / Unknown Lab Venipuncture / Unknown 05/14/2020 10:18 AM CDT 05/14/2020 10:55 AM CDT Glenny Martin MD LAB - SEROLOGY ORDERABLES Performing Organization Address [facility] Co de Phone Number [facility] ([facility]) [address] [place], [place] [address] * PROSTATE SPECIFIC ANTIGEN SCREEN (05/14/2020 10:18 AM CDT) PSA Total 0.4 0.0 - 4.0 ng/mL 05/14/2020 11:59 AM CDT [facility] Blood BLOOD SPECIMEN / Unknown Lab Venipuncture / Unknown 05/14/2020 10:18 AM CDT 05/14/2020 10:55 AM CDT Glenny Martin MD LAB - CHEMISTRY ORDERABLES Performing Organization Address [facility]/ZIP Co de Phone Number [address] [address], [facility] [phone] * CANNABINOID SCREEN BLOOD (05/14/2020 10:18 AM CDT) Marijuana Metabolites Negative 05/17/2020 12:06 AM CDT [facility] ([facility]) Comment:REFERENCE RANGE: thr shold: 5 ng/mL Specimen Type Comment 05/17/2020 12:06 AM CDT [facility] ([facility]) Comment: WHOLE BLOOD This specimen was [...] CDT 05/14/2020 10:53 AM CDT Narrative [facility] ([facility]) - 05/17/2020 12:06 AM CDT Performed at: ??01 - [employer] [address] [place] [address] ??[phone] Cane Weigher Helper: Radha Callahan [facility], Phone: ??[phone] Glenny Martin MD LAB - CHEMISTRY ORDERABLES [facility] ([facility]) [address] [place] [address] * IRON BLOOD (05/14/2020 10:18 AM CDT) Iron 84 50 - 175 mcg/dL 05/14/2020 11:41 AM CDT [facility] Blood BLOOD SPECIMEN / Unknown Lab Venipuncture / Unknown 05/14/2020 10:18 AM CDT 05/14/2020 10:57 AM CDT Glenny Martin MD LAB - CHEMISTRY ORDERABLES Performing Organization Address [facility]/ZIP Co de Phone Number [address] [address], [place] [phone] * (ABNORMAL) FERRITIN (05/14/2020 10:18 AM CDT) Ferritin 502(H) 22 - 275 ng/mL 05/14/2020 11:47 AM CDT [facility] Blood BLOOD SPECIMEN / Unknown Lab Venipuncture / Unknown 05/14/2020 10:18 AM CDT 05/14/2020 10:55 AM CDT Glenny Martin MD LAB - CHEMISTRY ORDERABLES Performing Organization Address [facility]/ZIP Co de Phone Number [address] [address], [place] [phone] * TRANSFERRIN (05/14/2020 10:18 AM CDT) Transferrin 245 174 - 382 mg/dL 05/14/2020 11:41 AM CDT [facility] Transferrin Saturation % 27 16 - 50 % 05/14/2020 11:41 AM CDT [facility] Blood BLOOD SPECIMEN / Unknown Lab Venipuncture / Unknown 05/14/2020 10:18 AM CDT 05/14/2020 10:57 AM CDT Glenny Martin MD LAB - CHEMISTRY ORDERABLES Performing Organization Address City/[facility] Co de Phone Number [facility] [address] [place] [address], [facility] [phone] * (ABNORMAL) VITAMIN D 25-HYDROXY (05/14/2020 10:18 AM CDT) [facility] Vitamin D, 25 Hydroxy 23.0(L) See comment: ng/mL 05/14/2020 11:48 AM CDT [facility] Comment: The recommendations for 25-Hydroxy Vitamin D [...] Reference: ?The Endocrine Society Clinical Practice Guidelines. 2011 ? Blood BLOOD SPECIMEN / Unknown Lab Venipuncture / Unknown 05/14/2020 10:18 AM CDT 05/14/2020 10:55 AM CDT Glenny Martin MD LAB - CHEMISTRY ORDERABLES [facility] [address] [place] [address], [place] [phone] * (ABNORMAL) URIC ACID BLOOD (05/14/2020 10:18 AM CDT) Pathologist [facility] Uric Acid 8.4(H) 2.6 - 7.2 mg/dL 05/14/2020 11:41 AM CDT [facility] Blood BLOOD SPECIMEN / Unknown Lab Venipuncture / Unknown 05/14/2020 10:18 AM CDT 05/14/2020 10:55 AM CDT Glenny Martin MD LAB - CHEMISTRY ORDERABLES Performing Organization Address [facility]/ZIP Co de Phone Number [facility] [address] [place] [address], [place] [phone] * HLA TYPING DNA LOW RESOLUTION DR,DQ (05/14/2020 10:18 AM CDT) Pathologist [facility] DR DQ Low Resolution DRB1-1 04 05/29/2020 7:59 AM CDT [facility] ([facility]) DR DQ Low Resolution DRB1-2 11 05/29/2020 7:59 AM CDT [facility] ([facility]) DR DQ Low Resolution DQB1-1 03 (DQ7) 05/29/2020 7:59 AM CDT [facility] ([facility]) DR DQ Low Resolution DQB1-2 03 (DQ8) 05/29/2020 7:59 AM CDT [facility] ([facility]) DR DQ Low Resolution DRB3-1 02 05/29/2020 7:59 AM CDT [facility] ([facility]) DR DQ Low Resolution DRB3-2 Negative 05/29/2020 7:59 AM CDT [facility] ([facility]) DR DQ Low Resolution DRB4-1 01 05/29/2020 7:59 AM CDT [facility] ([facility]) DR DQ Low Resolution DRB4-2 Negative 05/29/2020 7:59 AM CDT [facility] ([facility]) DR DQ Low Resolution DRB5-1 Negative 05/29/2020 7:59 AM CDT [facility] ([facility]) DR DQ Low Resolution DRB5-2 Negative 05/29/2020 7:59 AM CDT [facility] ([facility]) DR DQ Low Resolution Methodology SSOP 05/29/2020 7:59 AM CDT [facility] ([facility]) Comment DR DQ Low Resolution - 05/29/2020 7:59 AM CDT [facility] ([facility]) DR DQ Low Resolution test date 05/28/2020 05/29/2020 7:59 AM CDT [facility] ([facility]) Comment: This test was developed and its performance characteristics determined by the [facility]. ??It has not been cleared or [...] high complexity clinical laboratory testing. ??CLIA ID# [id number] Performed at: ??[facility], [address] @ [place], [place] ??[address] Cane Weigher Helper: Jarrod Chin MD, Blood BLOOD SPECIMEN / Unknown Lab Venipuncture / Unknown 05/14/2020 10:18 AM CDT 05/14/2020 10:52 AM CDT Glenny Martin MD LAB - BLOOD BAN K ORDERABLES [facility] ([facility]) [address] [place] [address], [facility] * HLA TYPING DNA LOW RESOLUTION A,B,C (05/14/2020 10:18 AM CDT) ABC DNA A1 03 05/29/2020 7:59 AM CDT [facility] ([facility]) ABC DNA A2 29 05/29/2020 7:59 AM CDT [facility] ([facility]) ABC DNA B1 07 05/29/2020 7:59 AM CDT [facility] ([facility]) ABC DNA B2 44 05/29/2020 7:59 AM CDT [facility] ([facility]) ABC DNA BW1 6 05/29/2020 7:59 AM CDT [facility] ([facility]) ABC DNA BW2 4 05/29/2020 7:59 AM CDT [facility] ([facility]) ABC DNA C1 07 05/29/2020 7:59 AM CDT [facility] ([facility]) ABC DNA C2 - 05/29/2020 7:59 AM CDT [facility] ([facility]) ABC DNA Methodology SSOP 05/29 7:59 AM CDT [facility] ([facility]) Comment ABC DNA - 0 7:59 AM CDT [facility] ([facility]) ABC DNA Test Date 0 05/29/2020 7:59 AM CDT [facility] ([facility]) Comment: This test was developed and its performance characteristics determined by the [facility]. ??It has not been cleared or [...] high complexity clinical laboratory testing. ??CLIA ID# [id number] Performed at: ??[facility], [address] @ [place], [place] ??[address] Cane Weigher Helper: Jarrod Chin MD, Blood BLOOD SPECIMEN / Unknown Lab Venipuncture / Unknown 05/14/2020 10:18 AM CDT 05/14/2020 10:52 AM CDT Glenny Martin MD LAB - BLOOD BAN K ORDERABLES [facility] ([facility]) [address] [place] [address], [facility] * VARICELLA ZOSTER ANTIBODY IGG (05/14/2020 10:18 AM CDT) Varicella zoster Virus Antibody IgG 3705.0 IV 05/16/2020 2:46 PM CDT [employer] ([facility]) Comment: INTERPRETIVE INFORMATION: VZV Ab, IgG [...] laboratory at the same time. Performed By: [employer] [address] [place] [address] Off Premise Service Representative: Valerie Mast MD Blood BLOOD SPECIMEN / Unknown Lab Venipuncture / Unknown 05/14/2020 10:18 AM CDT 05/14/2020 10:57 AM CDT Glenny Martin MD LAB - CHEMISTRY ORDERABLES [facility] [employer] [facility]) [address] [place] [address], [facility] * MUMPS ANTIBODY IGG (05/14/2020 10:18 AM CDT) Mumps Virus Antibody IgG 17.2 AU/mL 05/16/2020 6:30 PM CDT [facility] [employer] ([facility]) Comment: INTERPRETIVE INFORMATION: Mumps Ab, IgG by DESTINY ??8.9 AU/mL or less .... Negative - No significant level of ? detectable IgG mumps virus antibody ??9.0-10.9 AU/mL ....... Equivocal - Repeat testing in - ? days may be helpful ??11.0 AU/mL or greater: Positive - IgG antibody to mumps ? virus detected, which may indicate ? a current or past exposure/ ? immunization to mumps virus. The best evidence for current infection is a significant change on two appropriately timed specimens, where both tests are done in the same laboratory at the same time. Performed By: [employer] [address] [place] [address] Off Premise Service Representative: Valerie Mast MD Blood BLOOD SPECIMEN / Unknown Lab Venipuncture / Unknown 05/14/2020 10:18 AM CDT 05/14/2020 10:57 AM CDT Glenny Martin MD LAB - CHEMISTRY ORDERABLES Performing Organization Address City/State/[facility] Co de Phone Number [employer] ([facility]) [address] [place] [address], [facility] * RUBEOLA ANTIBODY IGG (05/14/2020 10:18 AM CDT) Measles ([employer]) Antibody IgG >300.0 AU/mL 05/16/2020 2:46 PM CDT [employer] ([facility]) Comment: INTERPRETIVE INFORMATION: Measles ([employer]) Antibody, [...] laboratory at the same time. Performed By: [employer] [address] [place] [address] Off Premise Service Representative: Valerie Mast MD Blood BLOOD SPECIMEN / Unknown Lab Venipuncture / Unknown 05/14/2020 10:18 AM CDT 05/14/2020 10:57 AM CDT Glenny Martin MD LAB - CHEMISTRY ORDERABLES [facility] [employer] ([facility]) [address] [place] [address], [facility] * OPIATES BLOOD (05/14/2020 10:18 AM CDT) [facility] Opiates Screen Negative 05/17/2020 12:06 AM CDT [facility] ([facility]) Comment:REFERENCE RANGE: thr shold: 10 ng/mL Oxycodone Screen Negative 05/17/20 12:06 AM CDT [facility] ([facility]) Comment:REFERENCE RANGE: thr shold: 10 ng/mL Specimen Type Comment 05/17/2020 12:06 AM CDT [facility] ([facility]) Comment: WHOLE BLOOD This specimen was screened by immunoassay at the thresholds listed above. Presumptive positive results have not been confirmed by an alternate method; results are intended for clinical medical purposes. Please contact the laboratory if confirmatory testing is desired. This test was developed and its performance characteristics determined by [employer]. It has not been cleared or approved by the Food and Drug Administration. Blood BLOOD SPECIMEN / Unknown Lab Venipuncture / Unknown 05/14/2020 10:18 AM CDT 05/14/2020 10:53 AM CDT Narrative [facility] ([facility]) - 05/17/2020 12:06 AM CDT Performed at: ??01 - [employer] [address] ??[phone] Cane Weigher Helper: Radha Callahan [facility], Phone: ??[phone] Glenny Martin MD LAB - CHEMISTRY ORDERABLES Performing Organization Address [facility]/State/[facility] Co de Phone Number [employer] ([facility]) [address] [place] [phone] * COCAINE METABOLITE QUANT (05/14/2020 10:18 AM CDT) [facility] Cocaine and Metabolite Blood <20 ng/mL 05/17/2020 11:07 PM CDT [employer] ([facility]) Comment: INTERPRETIVE INFORMATION: Cocaine Metabolite, ?Serum or Plasma, ?Quantitative Methodology: Quantitative Gas Chromatography- Mass Spectrometry Positive cutoff: 20 ng/mL ?? For medical purposes only; not valid for forensic use. The concentration value must be greater than or equal to the cutoff to be reported as positive. Interpretive questions should be directed to the laboratory. Test developed and characteristics determined by [employer]. See Compliance Statement B: [employer]/ Performed By: [employer] [address] [place] [address] Off Premise Service Representative: Valerie Mast MD Blood BLOOD SPECIMEN / Unknown Lab Venipuncture / Unknown 05/14/2020 10:18 AM CDT 05/14/2020 10:55 AM CDT Glenny Martin MD LAB - CHEMISTRY ORDERABLES [employer] [facility]) [address] [place] [address], [facility] * AMPHETAMINE BLOOD CONFIRMATION (05/14/2020 10:18 AM CDT) Amphetamines Confirmation <20 ng/mL 05/20/2020 12:29 PM CDT [employer] ([facility]) Comment: INTERPRETIVE INFORMATION: Amphetamines, Serum or [...] laboratory. Test developed and characteristics determined by [employer]. See Compliance Statement B: [email or web address] Methamphetamine Confirmation <20 ng/mL 05/20/2020 12:29 PM CDT [employer] [facility] ([facility]) MDA Confirmation <20 ng/mL 05/20/20 20 12:29 PM CDT [employer] [facility]) MDMA Confirm <20 ng/mL 05/20/2020 12:29 PM CDT [facility] [employer] [facility]) MDEA Confirmation <20 ng/mL 020 12:29 PM CDT [facility] [employer] [facility]) Comment: Performed By: [employer] [address] [place] [address] Off Premise Service Representative: Valerie Mast MD Blood BLOOD SPECIMEN / Unknown Lab Venipuncture / Unknown 05/14/2020 10:18 AM CDT 05/14/2020 10:57 AM CDT Glenny Martin MD LAB - CHEMISTRY ORDERABLES [employer] [facility]) [address] [place] [address], [facility] * NICOTINE + METABOLITES BLOOD (05/14/2020 10:18 AM CDT) Nicotine <2 ng/mL 05/18/2020 10:08 PM CDT [employer] ([facility]) Comment: Consistent with abstinence from nicotine-containing [...] ?? Test developed and characteristics determined by [employer]. See Compliance Statement B: [employer]/CS Performed By: [employer] [facility] [address] [place] [id number] Off Premise Service Representative: Valerie Mast MD 3-Hydroxy Cotinine <2 ng/mL 2019 10:08 PM CDT [employer] [facility]) Cotinine <2 ng/mL 05/18/2020 10:08 PM CDT [employer] [facility]) Blood BLOOD SPECIMEN / Unknown Lab Venipuncture / Unknown 05/14/2020 10:18 AM CDT 05/14/2020 10:57 AM CDT Glenny Martin MD LAB - CHEMISTRY ORDERABLES [facility] ([facility]) [address] [place] [place] [address], [facility] * ALCOHOL ETHYL BLOOD (05/14/2020 10:18 AM CDT) Pathologist [facility] Interpretation Ethanol None Detected None Detected mg/dL 05/14/2020 11:41 AM CDT [facility] Comment:Ethanol levels less than 10 mg/dL are resulted as None detected . Blood BLOOD SPECIMEN / Unknown Lab Venipuncture / Unknown 05/14/2020 10:18 AM CDT 05/14/2020 10:55 AM CDT Glenny Martin MD LAB - CHEMISTRY ORDERABLES Performing Organization Address [facility] Co de Phone Number [facility] [address] [place] [phone], [facility] [phone] * SYPHILIS ANTIBODY CASCADING REFLEX (05/14/2020 10:18 AM CDT) [facility] Treponema pallidum Antibody Non-react bianca Non-react bianca 05/14/2020 11:47 AM CDT [facility] Comment: No Laboratory evidence of syphilis infection. ?? Note: ??Circulating antibodies may be low or undetectable in early infection. ??If recent exposure is suspected, re-draw sample in 2-4 weeks and repeat testing. Blood BLOOD SPECIMEN / Unknown Lab Venipuncture / Unknown 05/14/2020 10:18 AM CDT 05/14/2020 10:55 AM CDT Glenny Martin MD LAB - SEROLOGY ORDERABLES Performing Organization Address [facility]/ZIP Co de Phone Number [facility] [address] [place] [phone], [place] [phone] * (ABNORMAL) HEMOGLOBIN A1C (05/14/2020 10:18 AM CDT) [facility] Hemoglobin A1c 7.7(H) 4.4 - 6.3 % 05/14/2020 3:37 PM CDT [facility] Estimated Average Glucose 174 mg/dL 05/14/2020 3:37 PM CDT [facility] Comment: HbA1c Interpretation: Treatment target values recommended by ADA and other clinical organizations should be used to evaluate metabolic control in patients. Treatment Target Values: Normal : < 5.7% Pre-diabetes: 5.7-6.4% Diabetes: Equal to or greater than 6.5% Reference: [place] [employer] Standards of Care in Diabetes -2014 In patients 70 years and older consider HbA1c target range of 7.0-7.5% Reference: ??Diabetes Mellitus in Older People: Position Statement on behalf of the International Association of Gerontology and Geriatrics (IAGG), the Diabetes Working Republican for Older People (EDWPOP), and the International Task Force of Experts in Diabetes. ??Hermelindo Remy, et al. J [place] [employer]. 2012 Test results diagnostic of diabetes should be repeated for confirmation. The Sebia Capillary 2 assay for the measurement of HbA1c is a National Glycohemoglobin Standardization Program (NGSP)certified method. Blood BLOOD SPECIMEN / Unknown Lab Venipuncture / Unknown 05/14/2020 10:18 AM CDT 05/14/2020 10:55 AM CDT Glenny Martin MD LAB - CHEMISTRY ORDERABLES Performing Organization Address City/State/[facility] Co de Phone Number [facility] [address] [address], [facility] [phone] * (ABNORMAL) MADIHA-MORRIS VIRUS ANTIBODY TO VCA IGG (05/14/2020 10:18 AM CDT) [facility] Madiha-Morris Virus Antibody IgG Viral Capsid Antigen 115.0(H) 0.0 - 21.9 U/mL 05/16/2020 5:10 PM CDT [facility] [employer] ([facility]) Comment: INTERPRETIVE INFORMATION: Madiha-Morris Virus Antibody to ?Viral Capsid Antigen, IgG ??17.9 U/mL or less.......Not Detected ??18.0-21.9 U/mL..........Indeterminate - Repeat testing in ?10-14 days may be helpful. ??22.0 U/mL or greater....Detected Performed By: [employer] [address] [place] [address] Off Premise Service Representative: Valerie Mast MD Blood BLOOD SPECIMEN / Unknown Lab Venipuncture / Unknown 05/14/2020 10:18 AM CDT 05/14/2020 10:55 AM CDT Glenny Martin MD LAB - CHEMISTRY ORDERABLES [employer] [facility]) [address] [place] [address], [facility] * CYTOMEGALOVIRUS ANTIBODY IGG BLOOD (05/14/2020 10:18 AM CDT) Cytomegalovirus Antibody IgG >10.00 U/mL 05/16/2020 6:28 PM CDT [facility] [employer] ([facility]) Comment: INTERPRETIVE INFORMATION: Cytomegalovirus Antibody, IgG [...] laboratory at the same time. Performed By: [employer] [address] [place] [address] Off Premise Service Representative: Valerie Mast MD Blood BLOOD SPECIMEN / Unknown Lab Venipuncture / Unknown 05/14/2020 10:18 AM CDT 05/14/2020 10:55 AM CDT Glenny Martin MD LAB - CHEMISTRY ORDERABLES [facility] ([facility]) [address] * HEPATITIS C ANTIBODY (05/14/2020 10:18 AM CDT) Hepatitis C Antibody Non-react bianca Non-reac tive 05/14/2020 11:49 AM CDT [facility] Comment:Hepatitis C Antibody screen indicates no [...] LAB - CHEMISTRY ORDERABLES Performing Organization Address City/[facility]/ZIP Co de Phone Number [facility] [address] [place] [phone] [phone] * (ABNORMAL) HEPATITIS B SURFACE ANTIBODY (05/14/2020 10:18 AM CDT) Hepatitis B Virus Surface Antibody Reactive( A) Non-react bianca 05/14/2020 11:47 AM CDT [facility] Comment: > 12 mIU/mL Hepatitis B surface Antibody (HBsAb). Reactive for HBsAb - individual is considered immune to Hepatitis B Virus infection. Hepatitis B Surface Antibody Quantitative 72.7(H) <8.0 mIU/mL 05/14/2020 11:47 AM CDT [facility] Comment: Hepatitis B Surface Antibody Numeric Result Interpretation: ? Nonreactive: ?<8.0 mIU/mL ? Indeterminate: ??8.0 - 12.0 mIU/mL ? Reactive: ?>12.0 mIU/mL ? Blood BLOOD SPECIMEN / Unknown Lab Venipuncture / Unknown 05/14/2020 10:18 AM CDT 05/14/2020 10:55 AM CDT Glenny Martin MD LAB - CHEMISTRY ORDERABLES Performing Organization Address City/[facility]/ZIP Co de Phone Number [address] [address], [place] [phone] * HEPATITIS B CORE ANTIBODY (05/14/2020 10:18 AM CDT) HBc Antibody Total Non-reacti ve Non-reacti ve 05/14/2020 11:47 AM CDT [facility] Blood BLOOD SPECIMEN / Unknown Lab Venipuncture / Unknown 05/14/2020 10:18 AM CDT 05/14/2020 10:55 AM CDT Glenny Martin MD LAB - CHEMISTRY ORDERABLES Performing Organization Address [facility] Co de Phone Number [address] [address], [place] [phone] * HEPATITIS B SURFACE ANTIGEN W RFLX CONFIRMATION (05/14/2020 10:18 AM CDT) Hepatitis B Virus Surface Antigen Non-reacti ve Non-reacti ve 05/14/2020 11:47 AM CDT [facility] Blood BLOOD SPECIMEN / Unknown Lab Venipuncture / Unknown 05/14/2020 10:18 AM CDT 05/14/2020 10:55 AM CDT Glenny Martin MD LAB - CHEMISTRY ORDERABLES Performing Organization Address [facility] Co de Phone Number [address] [address], [place] [phone] * (ABNORMAL) LIPID PROFILE (05/14/2020 10:18 AM CDT) [facility] Cholesterol Total 137 <200 mg/dL 05/14/2020 11:41 AM [facility] HDL 28(L) >40 mg/dL 05/14/2020 11:41 AM [facility] Comment: ATP III Classification of HDL Cholesterol: ? <40 mg/dL: ??Considered a major risk factor. ? >60 mg/dL: ??Considered a negative risk factor. ? LDL Calculated 70 <100 mg/dL 05/14/2020 11:41 AM [facility] Comment: ATP III Classification of LDL Cholesterol: ?<100 mg/dL: ??Optimal ? 100 - 129 mg/dL: ??Near Optimal/Above Optimal ? 130 - 159 mg/dL: ??Borderline High ? 160 - 189 mg/dL: ??High ?>190 mg/dL: ??Very High ? Triglycerides 196(H) <150 mg/dL 05/14/2020 11:41 AM [facility] Comment: ATP III Classification of Triglycerides: ?<150 mg/dL: ??Normal ? 150 - 199 mg/dL: ??Borderline High ? 200 - 400 mg/dL: ??High ?>500 mg/dL: ??Very High Blood BLOOD SPECIMEN / Unknown Lab Venipuncture / Unknown 05/14/2020 10:18 AM CDT 05/14/2020 10:55 AM CDT Glenny Martin MD LAB - CHEMISTRY ORDERABLES Performing Organization Address [facility]/State/ZIP Co de Phone Number [facility] [address] [place] [phone], [place] [phone] * (ABNORMAL) PHOSPHORUS BLOOD (05/14/2020 10:18 AM CDT) Phosphorus 5.1(H) 2.3 - 4.7 mg/dL 05/14/2020 11:41 AM [facility] Blood BLOOD SPECIMEN / Unknown Lab Venipuncture / Unknown 05/14/2020 10:18 AM CDT 05/14/2020 10:55 AM CDT Glenny Martin MD LAB - CHEMISTRY ORDERABLES Performing Organization Address City/State/[facility] Co de Phone Number [facility] [address] [place] [address], [facility] [phone] * (ABNORMAL) COMPREHENSIVE METABOLIC PANEL (05/14/2020 10:18 AM CDT) BUN 65(H) 7 - 26 mg/dL 05/14/2020 11:41 AM [facility] Creatinine 5.6(H) 0.6 - 1.2 mg/dL 05/14/2020 11:41 AM [facility] Sodium 142 136 - 145 mmol/L 05/14/2020 11:41 AM [facility] Potassium 3.7 3.5 - 4.5 mmol/L 05/14/2020 11:41 AM [facility] Chloride 101 98 - 107 mmol/L 05/14/2020 11:41 AM [facility] CO2 28 22 - 29 mmol/L 05/14/2020 11:41 AM [facility] Glucose 162(H) 70 - 115 mg/dL 05/14/2020 11:41 AM [facility] Calcium 9.0 8.4 - 10.2 mg/dL 05/14/2020 11:41 AM [facility] Protein Total 6.9 6.0 - 8.3 g/dL 05/14/2020 11:41 AM [facility] Albumin 3.7 3.4 - 5.0 g/dL 05/14/2020 11:41 AM [facility] Bilirubin Total 0.7 0.2 - 1.2 mg/dL 05/14/2020 11:41 AM [facility] Alkaline Phosphatase 140 40 - 150 Units/L 05/14/2020 11:41 AM [facility] ALT 43 0 - 55 Units/L 05/14/2020 11:41 AM [facility] AST 29 5 - 34 Units/L 05/14/2020 11:41 AM [facility] Anion Gap 17 8 - 18 05/14/2020 11:41 AM [facility] BUN/Creatinine Ratio 12 7 - 23 05/14/2020 11:41 AM [facility] Osmolality Calculated 316(H) 270 - 300 mOsm/kg 05/14/2020 11:41 AM [facility] Albumin/Globulin Ratio 1.2 1.1 - 2.3 05/14/2020 11:41 AM [facility] eGFR 11(L) >60 mL/min/1.7 3 m2 05/14/2020 11:41 AM [facility] Blood BLOOD SPECIMEN / Unknown Lab Venipuncture / Unknown 05/14/2020 10:18 AM CDT 05/14/2020 10:55 AM T Glenny Martin MD LAB - CHEMISTRY ORDERABLES [facility] [address] [place] [address], [facility] [phone] * (ABNORMAL) CBC W AUTO DIFFERENTIAL (05/14/2020 10:18 AM T) WBC 5.0 3.5 - 10.5 10? 3 /uL 05/14/2020 11:03 AM [facility] RBC 3.45(L) 4.30 - 5.70 10? 6 /uL 05/14/2020 11:03 AM [facility] Hemoglobin 10.7(L) 13.5 - 17.5 g/dL 05/14/2020 11:03 AM [facility] Hematocrit 31.1(L) 39.0 - 50.0 % 05/14/2020 11:03 AM [facility] MCV 90.1 81.0 - 97.0 fL 05/14/2020 11:03 AM [facility] MCH 31.0 28.0 - 34.0 pg 05/14/2020 11:03 AM [facility] MCHC 34.4 32.0 - 36.0 g/dL 05/14/2020 11:03 AM [facility] Platelet Count 232 150 - 400 10? 3 /uL 05/14/2020 11:03 AM [facility] RDW-SD 42.4 36.0 - 50.0 fL 05/14/2020 11:03 AM [facility] RDW-CV 12.9 11.2 - 14.8 % 05/14/2020 11:03 AM [facility] MPV 9.8 9.3 - 12.8 fL 05/14/2020 11:03 AM [facility] nRBC Absolute 0.00 0 10? 3 /uL 05/14/2020 11:03 AM [facility] nRBC Auto 0.0 0 /100 WBC 05/14/2020 11:03 AM [facility] Neutrophils % 54.8 35.0 - 70.0 % 05/14/2020 11:03 AM [facility] Lymphocytes % 31.2 19.7 - 55.1 % 05/14/2020 11:03 AM [facility] Monocytes % 9.4 3.0 - 15.0 % 05/14/2020 11:03 AM [facility] Eosinophils % 3.8 0.0 - 6.0 % 05/14/2020 11:03 AM [facility] Basophil % 0.6 0.0 - 1.5 % 05/14/2020 11:03 AM [facility] Neutrophils Absolute 2.7 1.6 - 7.0 10? 3 /uL 05/14/2020 11:03 AM [facility] Lymphocyte Absolute 1.6 0.8 - 2.9 10? 3 /uL 05/14/2020 11:03 AM [facility] Monocytes Absolute 0.47 0.14 - 0.66 10? 3 /uL 05/14/2020 11:03 AM [facility] Eosinophils Absolute 0.19 0.00 - 0.45 10? 3 /uL 05/14/2020 11:03 AM [facility] Basophils Absolute 0.03 0.00 - 0.06 10? 3 /uL 05/14/2020 11:03 AM [facility] Immature Granulocytes % 0.2 0.0 - 1.0 % 05/14/2020 11:03 AM CDT [facility] Blood BLOOD SPECIMEN / Unknown Lab Venipuncture / Unknown 05/14/2020 10:18 AM CDT 05/14/2020 10:55 AM CDT Glenny Martin MD LAB - HEMATOLOG Y ORDERABLES [facility] [address] [place] [address], [place] [phone] * BLOOD TYPE ABO+ RH PANEL (05/14/2020 10:18 AM CDT) ABO Rh A POS 05/14/2020 12:11 PM CDT [facility] Blood BLOOD SPECIMEN / Unknown Lab Venipuncture / Unknown 05/14/2020 10:18 AM CDT 05/14/2020 11:29 AM CDT Glenny Martin MD LAB - BLOOD BAN K ORDERABLES Performing Organization Address City/[facility]/ZIP Co de Phone Number [facility] [address] [place] [address], [place] [phone] * TYPE + SCREEN PANEL (05/14/2020 10:06 AM CDT) Antibody Screen NEG 0 12:17 PM CDT [facility] ABO Rh A POS 05/14/2020 12:17 PM CDT [facility] Blood Bank BLOOD SPECIMEN / Unknown Lab Venipuncture / Unknown 05/14/2020 10:06 AM CDT 05/14/2020 11:30 AM CDT Glenny Martin MD LAB - BLOOD BAN K ORDERABLES Performing Organization Address City/[facility]/ZIP Co de Phone Number [facility] [address] [place] [address], [place] [phone] * XR PANOREX (05/14/2020 7:35 AM CDT) Anatomical Region Laterality Modality Head Radiographic Toma ging 05/14/2020 7:56 AM CDT Impressions 05/15/2020 7:51 AM CDT IMPRESSION: No periapical abscess identified. Dictated by Kristie Bee MD (university president). Dr. CONRAD Champion MD have personally reviewed [...] abscess identified. Dictated by Kristie Bee MD (university president). Dr. CONRAD Champion MD have personally reviewed [...] is normal. Dictated by Kristie Bee MD (university president). Dr. CONRAD Champion MD have personally reviewed [...] is normal. Dictated by Kristie Bee MD (university president). I, Dr. CONRAD GONZALES MD have personally reviewed and interpreted this examination/study. This report was electronically signed by CONRAD GONZALES MD on05/15/2020 7:49 AM . Glenny Martin MD DIAGNOSTIC IMAG ING ORDERABLES documented in this encounter Visit Diagnoses Diagnosis Pre-transplant evaluation for kidney transplant- Primary Pre-transplant evaluation for kidney transplant Pre-transplant evaluation for kidney transplant Pre-transplant evaluation for kidney transplant Pre-transplant evaluation for kidney transplant Pre-transplant evaluation for kidney transplant Pre-transplant evaluation for kidney transplant documented in this encounter Care Teams Teller Supervisor Relationship Specialty Start Date End Date Aditya Castro Update Information PCP - General 03/06/19 documented as of this encounter
--- OUTSIDE RECORDS SUMMARY | 2024-08-18 13:00 | XMS_ITS | Encounter Summary ---
Author Organization [facility] Address [address] [place] [address] Care Team Providers Care Scrap Drop Engineer Name Role Phone Aditya Castro Primary Care Provider Unavailab le Reason for Visit * Radiology Services (Routine) - Closed Specialty Diagnoses / Procedures Referred By Aguilar t Referred To Contact Diagnoses Pre-transplant evaluation for kidney transplant Procedures ECHO STRESS TEST W DOBUTAMINE Glenny Martin MD [address] [place] [address] [facility] [address] [place] [address] Referral ID Status Reason Start Date Expiration Date Visits Re quested Visits Authorized [id number] Closed 05/14/2020 08/13/2020 1 1 Encounter Details Date Type Department Care Team (Late st Contact Info) Description 05/14/2020 7:37 AM CDT - 05/14/2020 7:54 AM T Hospital Encounter [facility] ECHO [address] [place] [phone] Glenny Martin MD [address] [facility] [place] [address] Discharge Disposition: Home or Self Care Social [...] 12 hours as needed 01/25/2019 epoetin (PROCRIT) 61270 UNIT/ML injection Inject subcutaneously every 14 days ezetimibe (ZETIA) 10 MG tablet Take 10 mg by mouth once daily febuxostat (ULORIC) 40 MG tablet Take 40 mg by mouth 02/25/2019 ferrous sulfate EC (FERROUS SULFATE) 324 (65 Fe) MG tablet Take 324 mg by mouth once daily 02/21/2019 fluticasone propionate (FLONASE) 50 MCG/ACT nasal spray [place] 1 spray into each nostril once daily [...] test strip 04/17/2019 vitamin D, ergocalciferol, (DRISDOL) 79297 units capsule Take 50,000 Units by mouth every 7 days 02/13/2019 selenium sulfide (SELSUN) 2.5 % lotionIndications:Oth er seborrheic dermatitis APPLY TO FACE, LATHER, RINSE OFF IN SHOWER AFTER 3-5 MINUTES DIRECTED 120 mL 3 10/11/2019 07/20/2020 documented as of this encounter Procedure Notes * Elsie Moya RN - 05/14/2020 9:59 AM CDT Patient discharged from the Echo Lab to the Outpatient Department. Okay to discharge the patient per Dr. Gaurang Castro, Ring Rolling Machine Operator. Patient has no complaints. Denies chest pain and SOB. * Elsie Moya RN - 05/14/2020 7:55 AM CDTProcedure(s): ECHO STRESS W DOBUTAMINE; ECHO STRESS W DOBUTAMINE Patient arrived to the Echo Lab from the Outpatient Department. Explained the Dobutamine Stress Test to the patient. Patient verbalized understanding and agreed to continue with the procedure. A & O x 4. Confirmed NPO since prior to midnight. Denies chest pain and SOB. * Precious Matos, LUAN - 05/13/2020 5:57 PM CDTProcedure(s): ECHO STRESS W DOBUTAMINE Reminder call placed to pt regarding upcoming echo appointment. Pt instructed :Please register i 30mins prior to your first scheduled appointment, Do not eat or drink anything after MN tonight, takeall of your morning medications as usual with a sip of water, and brief explanation of procedure given to include length of procedure. Pt COVID screened and verbalized understanding of instructions. documented in this encounter Plan of Treatment Not on file documented as of this encounter Procedures Procedure Name Priority Date/Time Associated Diagnosis Comments CARDIAC EKG ORDER 05/18/2020 10: 28 AM CDT ECHO STRESS W DOBUTAMINE Routine 05/14/2020 10:22 AM CDT Pre-transplant evaluation for kidney transplant documented in this encounter Results * CARDIAC EKG ORDER (05/18/2020 10:28 AM CDT) Narrative 05/18/2020 10:28 AM CDT Ordered by an unspecified provider. Scanned Document CARDIAC SERVICES ORD ERABLES documented in this encounter Visit Diagnoses Diagnosis Pre-transplant evaluation for kidney transplant documented in this encounter Administered Medications Inactive Administered Medications - up to 3 most recent administrations Medication Order MAR Action Action Date Dose Rate Site atropine injection 0.4 mg 0.4 mg, Intravenous, INTRA-PROCEDURE MULTIPLE, Starting on Gregoria 05/14/20 at 0908, Until Gregoria 05/14/20 at 1307, For Echo Procedure - Per Protocol $ Given 05/14/2020 9:40 AM CDT 0.4 mg $ Given 05/14/2020 9:39 AM CDT 0.4 mg $ Given 05/14/2020 9:36 AM CDT 0.4 mg DOBUTamine (DOBUTREX) 50 mg in 50 ml 10 mcg/kg/min ? 122.5 kg (73.5 mL/hr), Intravenous, INTRA-PROCEDURE CONTINUOUS, Starting on Gregoria 05/14/20 at 0915, Until Gregoria 05/14/20 at 1314, For Echo Procedure - Per Protocol $ New Bag/Syringe 05/14/2020 9:26 AM CDT 10 mcg/kg/min 73.5 mL/hr perflutren Lipid Microsphere (DEFINITY) injection SUSP 0.5 mL 0.5 mL, Intravenous, INTRA-PROCEDURE MULTIPLE, 6 doses, Starting on Gregoria 05/14/20 at 0908, Until 05/15/20 at 0120, For Echo Procedure - Per Protocol Shake well before using. $ Given 05/14/2020 9:45 AM CDT 0.5 mL $ Given 05/14/2020 9:41 AM CDT 0.5 mL $ Given 05/14/2020 9:28 AM CDT 0.5 mL documented in this encounter Care Teams Scrap Drop Engineer Relationship Specialty Start Date End Date Aditya Castro Update Information PCP - General 03/06/19 documented as of this encounter
--- OUTSIDE RECORDS SUMMARY | 2024-08-18 13:01 | XMS_ITS | Encounter Summary ---
Author Organization [facility] Address [address] [place] [address] Care Team Providers Care Commercial Attache Name Role Phone CastroNancy josueAditya K Primary Care Provider Unavailab le Reason for Visit * Reason Comments Establish Care New patient, FBSC- s cattered moles, dry skin forehead, side of nose(irritating), legs, hands. Dark areas on lower legs, no symptoms Encounter Details Date Type Department Care Team (Late st Contact Info) Description 04/11/2019 1:20 PM CDT Office Visit [facility] [address] [place] [id number] Finn Kramer MD [address] [place] [id number] Other seborrheic dermatitis (Primary Dx); Venous stasis dermatitis of both lower extremities; Angiokeratoma of scrotum; Multiple benign melanocytic nevi of upper and lower extremities and trunk Social History Tobacco Use Types Packs/Day Years Used Date Smoking Tobacco: Never Smokeless Tobacco: Never Alcohol Use Standard Drinks/Week Comments No 0 (1 standard drink = 0.6 oz pur e alcohol) Sex and Gender Information Value Date Recorded Sex Assigned at Not on file Gender Identity Not on file Sexual Orientation Not on file documented as of this encounter Patient Instructions * Patient Instructions* Finn Kramer MD - 04/11/2019 1:33 PM CDT Thank you for coming to your appointment today. Please plan follow up in 12 months. Apply lotn to a damp scalp and face daily to three times per week, let soak for 4-5 minutes prior to rinsing out. If this is not covered by insurance, over the counter selenium sulfide (Selsun Blue) is a good substitute. Stasis Dermatitis Stasis dermatitis occurs when veins lose the ability to pump blood back to the heart (poor venous circulation). It causes a reddish-purple to brownish scaly, itchy rash on the legs. The rash comes from pooling of blood (stasis). CAUSES This occurs because the veins do not work very well anymore or because pressure may be increased inthe veins due to other conditions. With blood pooling, the increased pressure in the tiny blood vessels (capillaries) causesfluid to leak out of the capillaries into the tissue. The extra fluid makesit harder for the blood to feed the cells and get rid of waste products. SYMPTOMS Stasis dermatitis appears as red, scaly, itchy patches on the legs. A yellowish or light brown discoloration is also present. Due to scratching or other injury, these patches can become an ulcer. This ulcer may remain for long periods of time. The ulcer can also become infected. Swelling of the legs is often present with stasis dermatitis. If the leg is swollen, this increases the risk of infection and further damage to the skin. Sometimes, intense itching, tingling, and burning occurs before signs of stasis dermatitis appear. You may find yourself scratching the insides of your ankles or rubbing your ankles together before the rash appears. After healing, there areoften brown spots on the a ffected skin. DIAGNOSIS Your caregiver makes this diagnosis based on an exam. Other tests may be done to better understand the cause. TREATMENT If underlying conditions are present, they must be treated. Some of these conditions are heart failure, thyroid problems, poor nutrition, and varicose veins. Cortisone creams and ointments applied to the skin (topically) may be needed. Compression stockings or an elastic wrap may also be needed to reduce swelling. Compression is often the most important part of treatment. The stockings should be put on immediately when you wake up and left on all day (except in the shower) and not taken off until you go to bed. In general, knee-high stockings are used often starting with 20-30 mmHg. Some people will need stronger ones than this. We often recommend [employer] Telnexus at [employer] or online at www.[employer] They can also be obtained from [facility] CARE INSTRUCTIONS Try to rest and raise (elevate) the affected leg above the level of the heart, if possible. It is often helpful to lay your legs on top of pillows while sleeping so that they are elevated. Grease your legs daily with ointments, such as petroleum jelly, to fight dryness. Avoid scratching or injuring the area. If you have trouble getting your compression stockings on, there is a device sold online from multiple companies that can be helpful called a Akira device. Many people find good deals on [employer] Akira device: [address] [place] [address] P: [phone] F: [phone] M-F 8:30am-5:30pm Sat 10am-3pm [address] [address] P: [phone] F: [phone] M-F 8:30am-5:30pm Closed Monday [place] [address] [facility] [place] [address] P: [phone] F: [phone] M-F 8:30am-5:30pm Closed Monday documented in this encounter Progress Notes * Finn Kramer MD - 04/11/2019 1:21 PM CDT Chief Complaint Patient presents with ??? Establish Care New patient, FBSC- scattered moles, dry skin forehead, side of nose(irritating), legs, hands. Dark areas on lower legs, no symptoms HPI: Juvenal Daigle a 48 year old male PMH DMI, CKD, presents for skin exam. Concerns: Dry skin forehead, side of nose, legs, hands - years - tx with OTC lotions - face, eyebrows and nose worse, flaking and itching there Personal history of skin cancer: none No family history of melanoma Wants to be checked all over, has had several spots present for many years, none are changing, all are asymptomatic Concerns: dark spots on lower legs - years - notes leg swelling occasionally - occasionally itchy Allergies and medications were reviewed and verified. Past medical history, social history and family history were reviewed. ROS: As per HPI above. Patient denies fever, chills and night sweats. No other skin complaints. PE: No acute distress. Mood clear/affect appropriate. Alert and oriented. Mucous membranes moist. Sclera anicteric. Full body skin exam was conducted to include the scalp, face, lips/teeth, lids/conjunctiva, ears, neck, chest, abdomen, back, groin/buttock, right and left hands and forearms, right and left leg and feet and was normal with the following exceptions: - Multiple 2-6 mm miller brown macules and papules and skin colored papules on face, trunk and extremities - eyebrows, scalp, NLF with scant yellow greasy scale - LE with 2-3+ pitting edema, ill defined brown patches with overlying xerosis - scrotum with numerous firm violaceous scaly papules A/P: Juvenal was seen today for establish care. Diagnoses and all orders for this visit: Other seborrheic dermatitis - selenium sulfide (SELSUN) 2.5 % lotion; Apply to face, lather, rinsed off in shower after 3-5 min. 30 day supply. Venous stasis dermatitis of both lower extremities - Counseled patient on diagnosis, etiology, natural disease course, and treatment options - largely asymptomatic, so start with compression 20-30 mmHg Angiokeratoma of scrotum -Benign, reassurance Multiple benign melanocytic nevi of upper and lower extremities and trunk - Benign, reassurance - Counseled on importance of daily sun protection (Broad spectrum, SPF >30), monthly self skin exams - Reviewed ABCDEs of melanoma - Sun screen hand out provided RTC in 1 year Finn Kramer MD Dermatology Resident, PGY-4 Associated attestation - Jackie Vasquez DO - 04/11/2019 1:57 PM CDT Attending Physician Supervisory Note Patient seen and examined with Resident. Please see note for further details. I was present for thekey portions of any procedures performed and always available. I confirm history, exam, assessment and plan with the following exceptions/additions: 48 yo male with scaly patches on face, legs x yrs. OTC tx. Itching occ. PE: Codell scaly patches b/l eyebrows, NLF, post auricular. 2+ pitting edema with brawny discoloration b/l LE. Scattered over trunk and extremities are numerous, 2-6 mm, evenly pigmented miller to brownmacules and papules A/P [facility] - Selsun blue 2. Stasis - Compression - Amlactin 3. Nevi - Benign - FBSE yearly Jackie Vasquez DO documented in this encounter Plan of Treatment Not on file documented as of this encounter Visit Diagnoses Diagnosis Other seborrheic dermatitis- Primary Venous stasis dermatitis of both lower extremities Angiokeratoma of scrotum Benign neoplasm of scrotum Multiple benign melanocytic nevi of upper and lower extremities and trunk documented in this encounter Care Teams Commercial Attache Relationship Specialty Start Date End Date Aditya Castro Update Information PCP - General 03/06/19 documented as of this encounter
--- OUTSIDE RECORDS SUMMARY | 2024-08-18 13:01 | XMS_ITS | Continuity of Care Document ---
Author Organization [place] - [facility] [place] [employer] [facility] Address [address] [place] [address] Care Team Providers Care Defensive Line Coach Name Role Phone ADITYA CASTRO Primary Care Provider ADITYA CASTRO Referring Provider ADITYA CASTRO Primary Care Provider [phone] Assessment Encounter Date Assessment Date Assessment LastModified by Organization Details LastModified Time 07/15/2024 07/15/2024 53 yo M with - S/P ED VISIT x 2 - RT KIDNEY STONE - GALL STONES - CHRONIC BACK PAIN - DDD L-SPINE - OA - RT KNEE PAIN, chronic - GOUT - HTG - HLD - GERD - DM I - HYPERPARATHYROIDISM - HTN - CHF - A FIB - H/O DVT - ANGINA - CAD (S/p total 5 stents) - ESRD (On PD) - ANEMIA - UMBILICAL HERNIA - ALLERGIC RHINITIS - VIT D DEFICIENCY - ED - MULTIPLE MOLES - BEN (On Cpap) - OBESITY III - H/O RT LE DVT (03/06) - H/O CORNEAL ABRASION (Lt) HbA1C: 8.9(05/08/18) - 8.0(05/16/19) - 9.6(02/26/20) - 8.2(06/09/20) - 7.5(06/22/21) - 9.7(11/01/22) - 9.9(05/07/24) Annual labs: 05/07/24. X-ray T-spine, Rt scapula: 05/02/24. US LE venous: 02/28/24. US abdo: 02/28/24. CT CAP: 02/26/24. US LE duplex: 06/04/22. US Abdo: 06/03/22. CT A&P wo: 06/02/22. Annual labs: 06/22/21. CXR: 05/15/21. US echo: 02/02/21. US LE venous: 01/26/21. CTA chest w: 01/26/21. CT A&P wo: 01/11/21. NM scan: 12/22/20. MRI L-spine wo: 11/20/20. Annual labs: 06/09/20. CXR: 03/31/20. CXR: 01/30/20. X-ray Rt hip: 12/27/19. CXR: 12/26/19. Annual labs: 05/16/19. X-ray L-spine: 11/13/18. US Rt LE venous: 09/10/18. Angiogram, Stress test & Echo: 06/07. Annual labs: 04/25/18. Wt: 272(01/10/19) - 260(02/18/19) - 258(03/18/19) - 256(04/18/19) - 253(05/16/19) - 256(06/13/19) - 255(07/11/19) - 256(08/08/19) [Stop] D/w pt in detail about his findings, recent labs & imagines and further plan of care. Recent ED records reviewed. Pt has info about Urologist to see for his kidney stone, but he has not called them yet. Advised pt to call them today. Will refer pt to Surgeon. Educated pt about alarming symptoms to monitor at home and get checked in ED. Pt verbalized understanding it. Advised pt to contact his Endo for hyperparathyroidism and his DM regimen. Advised pt to contact his Hemat and Cardio for his Anticoagulation regimen. All questions answered for the pt. All meds verified with pt. Meds as directed. Warfarin education given to pt. Advised to f/u with his Cardio about its dosing & directions. Diet and exercise explained in detail. Fall risk precautions explained. BP and DM diary education given and call us if any concerns. Since pt is getting labs every few months with multiple specialists, will only do only Annual labs here. Pt agreed. F/u with Uro as per schedule. F/u with Surg as per schedule. Cont f/u with Ortho as per schedule. Cont f/u with ENT as per schedule. Cont f/u with Pain clinic as per schedule. Cont f/u with Endo at [facility] as per schedule. Cont f/u with Spine as per schedule. Cont f/u with Rheumat at [facility] as per schedule. Cont f/u with Surg as per schedule. Cont f/u with Cardio at [facility] as per schedule. Cont f/u with Nephro at [facility] as per schedule. Cont f/u with Hemat at [facility] as per schedule. Cont f/u with [employer] as per schedule. Cont f/u with Ophtho at as per schedule. Cont f/u with Derm at [facility] as per schedule. Cont f/u with Dr. Langley (Hand surgeon) at as per schedule. Educated pt about alarming symptoms to monitor at home and call us back or get checked in ED. Pt had acute renal failure and was admitted hospital due to s/e from Allopurinol as per his Dukey Rider. So pt can not take any Allopurinol in future. So pt needs to be on Febuxostat and Colchicine for his Gout control. Pt's insurance declined for MRI L-spine wo and FCE testing. Pt's insurance declined for Saxenda. HM: Colonoscopy - 03/08, 1 polyp +. Cont f/u with GI as per schedule (5 yrs). Flu - Pt gets at HD/pharmacy. Pneumo - 02/12/20. Tdap - 10/22/19. Shingrix - At pharmacy/HD. F/u in 3-4 months as before. Annual labs in 05/15. [email or web address] Not available 07/15/2024 12:11:51 Plan of Treatment Reminders Order Date Submit Date Provider Last Modified By Organization Details Last Modified Time Details Appointments Follow Up 30 2024 02:45P Lisa Castro MD Not available Not available Not available Hospital Follow Up 2024 01:00P Lisa Castro MD Not available Not available Not available Lab None recorded. Referral general surgeon referral - Please call patient to schedule an appointme nt. Thank you. 2023 024 [email or web address] Everton Hooker MD, [address], [place], [address], 08/12/2024 08:54:30 Procedures None recorded. Surgeries None recorded. Imaging None recorded. Medication Orders tamsulosi n 0.4 mg capsule 2023 [email or web address] [facility] #[id number], [address] [facility] [facility], [place], [place], [id number], 07/15/2024 12:10:41 ketorolac 10 mg tablet 2023 [facility] #[id number], [address] [place], [place], [id number], 07/15/2024 12:10:41 oxycodone 5 mg tablet 2023 [email or web address] [id number], [address] [place], [id number], 07/15/2024 12:10:41 ondansetr on HCl 4 mg tablet 2023 [facility][id number], [address] [place], [place], [id number], 07/15/2024 12:10:41 Patient TargetsNo targets recorded. Patient Instructions Encounter Date Encounter Id Patient Instructions Last Modified By Organization Details Last Modified Time 07/15/2024 [id number] starting a weigh t loss plan: care instructions [email or web address] Not available 07/15/2024 12:10:41 Reason for Referral General Surgeon Referral for Gallstone RUQ pain, gallstones ++ Please call patient to schedule an appointment. Thank you. Referring Physician: Aditya Castro, Family Medicine, Encounter Date: 07/15/2024 Results Created Date Observation Date Name Description Value Unit Range Abnormal Flag Note LastModifiedBy Organization Detail LastModifiedTime 06/21/20 24 XR, hip + pelvi s, unila teral No observ ation record ed. [email or web address] [facility] [address], [place], [address], 06/21/2024 12:02:31 07/12/20 24 07/12/2024 CT, abdom en + pelvi s, w/o contr ast No observ ation record ed. [address], [place], [address], 07/15/2024 11:27:52 07/16/20 24 07/16/2024 CT, abdom en + pelvi s, w/o contr ast No observ ation record ed. [address], [place], [address], 07/17/2024 09:02:10 08/11/20 24 08/11/2024 CT, abdom en + pelvi s, w/o contr ast No observ ation record ed. [address], [place], [address], 08/12/2024 09:33:09 Result Notes None recorded. 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 394366952 Active 2017 Not Available [facility] 3 01:10:47 Chronic back pain 126744232 Active 2022 Not Available [facility] 3 01:10:47 Hyperchol esterolem ia 37484830 Active 2017 Not Available [facility] 3 01:10:47 Seborrhei c dermatiti s of scalp 767655882 Active 2022 Not Available [facility] 3 01:10:47 Chronic physical disabilit y 089797975 Active 2018 Not Available [facility] 3 01:10:47 History of deep vein thrombosi s 232506112 Active 2017 Not Available [facility] 3 01:10:47 Heartburn 24544768 Active 2017 Not Available [facility] 3 01:10:47 Ultrasoun d scan abnormal 189348749 Active 2020 Not Available [facility] 3 01:10:47 Hypertrop hy of nasal turbinate s 70902493 Active 2021 Not Available [facility] 3 01:10:47 Sensorine ural hearing loss of bilateral ears 355446560 Active 2021 Not Available [facility] 3 01:10:47 Periphera l venous insuffici ency 28636020 Active 2020 Not Available [facility] 3 01:10:47 Myocardia l infarctio n 96509832 Completed 201705/08/2018 Not Available [facility] 3 01:10:48 Stable angina 618690257 Active 2017 Not Available [facility] 3 01:10:48 End stage renal failure on dialysis 888066628 Active 2019 Not Available [facility] 3 01:10:48 Degenerat ion of lumbar intervert ebral disc 51521816 Active 2018 Not Available [facility] 3 01:10:48 Gastroeso phageal reflux disease without esophagit is 304314595 Active 2017 Not Available [facility] 3 01:10:48 Anemia 397126422 Active 2017 Not Available [facility] 3 01:10:48 Chronic low back pain 333364408 Active 2018 Not Available [facility] 3 01:10:48 Pain in toe 350538030 Active 2018 Not Available [facility] 3 01:10:48 Pain in toe 282647420 Active 2018 Not Available [facility] 3 01:10:48 Right upper quadrant pain 864990222 Active 2020 Not Available [facility] 3 01:10:48 Type 2 diabetes mellitus without complicat ion 587512591 Completed 201701/10/2019 Not Available [facility] 3 01:10:48 Pain in left foot 14068244762 9107 Active 2019 Not Available [facility] 3 01:10:48 Vitamin D deficienc y 61379953 Active 2017 Not Available [facility] 3 01:10:49 Seasonal allergic rhinitis 637438769 Active 2017 Not Available [facility] 3 01:10:49 Sinusitis 41877488 Active 2021 Not Available [facility] 3 01:10:49 Hypertens bianca disorder 56266267 Active 2017 Not Available [facility] 3 01:10:49 Osteoarth ritis 817638678 Active 2019 Not Available [facility] 3 01:10:49 Umbilical hernia 905241682 Active 2018 Not Available [facility] 3 01:10:49 Vertigo 040467825 Active 2021 Not Available [facility] 3 01:10:49 Abrasion and/or friction burn of skin 733306754 Active 2018 Not Available [facility] 3 01:10:49 Chronic sinusitis 70624425 Active 2021 Not Available [facility] 3 01:10:49 Multiple benign melanocyt ic nevi 824076208 Active 2017 Not Available [facility] 3 01:10:50 Deep venous thrombosi s of lower extremity 056317358 Active 2022 Not Available [facility] 3 01:10:50 Dizziness 685233291 Active 2017 Not Available [facility] 3 01:10:50 Dysphagia 62871078 Active 2021 Not Available [facility] 3 01:10:50 Obesity 589255967 Active 2017 Not Available [facility] 3 01:10:50 Ketoacido sis due to type 1 diabetes mellitus 938844784 Active 2019 Not Available [facility] 3 01:10:50 Nausea 976576864 Active 2021 Not Available [facility] 3 01:10:50 Congestiv e heart failure 88700623 Active 2017 Not Available [facility] 3 01:10:50 Diabetic periphera l neuropath y 454374222 Active 2017 Not Available [facility] 3 01:10:51 Asymmetri nikos hearing loss 082632235 Active 2021 Not Available [facility] 3 01:10:51 Chronic kidney disease stage 4 397310185 Completed 201707/29/2020 Not Available [facility] 3 01:10:51 Chronic kidney disease stage 5 415828141 Active 2019 Not Available [facility] 3 01:10:51 Uncontrol led type 2 diabetes mellitus 919876013 Completed 201705/16/2019 Aditya Castro MD [address] [place] [address], [address] , [facility] 4 09:03:03 Gastritis 0070320 Active 2021 Not Available [facility] 3 01:10:51 End-stage renal disease 83695013 Active 2019 Not Available [facility] 3 01:10:51 Type 1 diabetes mellitus 40949884 Active 2018 Not Available [facility] 3 01:10:52 Atrial fibrillat ion 31630695 Active 2017 Not Available [facility] 3 01:10:52 Hyperlipi demia 21849227 Active 2017 Not Available [facility] 3 01:10:52 Heart disease 69102363 Active 2017 Not Available [facility] 3 01:10:52 Hyperpara thyroidis m 80988401 Active 2018 Not Available [facility] 3 01:10:52 Nasal congestio n 97617577 Active 2021 Not Available [facility] 3 01:10:52 Diabetes mellitus 85399893 Active 2017 Not Available [facility] 3 01:10:52 Obstructi ve sleep apnea syndrome 60603234 Active 2018 Not Available [facility] 3 01:10:53 Epigastri c pain 18309217 Active 2021 Not Available [facility] 3 01:10:53 Chronic idiopathi c constipat ion 90771228 Active 2020 Not Available [facility] 3 01:10:53 Corneal abrasion 49396021 Active 2018 Not Available [facility] 3 01:10:53 Dystrophi a unguium 08720792 Active 2018 Not Available [facility] 3 01:10:53 Gout 57719134 Active 2017 Not Available [facility] 3 01:10:53 Chronic renal failure 16939676 Completed 201705/08/2018 Not Available [facility] 3 01:10:54 Skin lesion 34993516 Active 2017 Not Available [facility] 3 01:10:54 Hypertrig lyceridem ia 943053618 Active 2022 Aditya Castro MD [address], [place], [address] , [facility] [employer] [facility] 3 16:04:08 Chronic constipat ion 090274730 Active 2022 Aditya Castro MD [address], [address], [place], [address] , [facility] [employer] [facility] 3 16:45:46 Cough 53653452 Active 2022 Aditya Castro MD [address], [address], [place], [address] , [facility] [employer] [facility] 3 12:45:44 Bronchiti s 37440802 Active 2022 Aditya Castro MD [address], [address], [place], [address] , [facility] [employer] [facility] 3 09:22:50 Allergic rhinitis 01093761 Active 2022 Aditya Castro MD [address], [address], [place], [address] , [employer] [facility] [employer] [facility] 3 09:28:39 Allergic contact dermatiti s 321830547 Active 2022 Aditya Castro MD [address], [employer], [place], [address] , [facility] [place] [employer] [facility] 3 16:06:02 Tinea cruris 206705140 Active 2022 Aditya Castro MD [address], [address] [employer], [place], [address] , [employer] [facility] [employer] [facility] 3 16:06:15 Acute bacterial sinusitis 98773818 Active 2023 KATIE Chen [address] [employer], [employer], [place], [address] , [facility] [employer] [facility] 4 09:55:25 Ulcer of mouth 90896735 Active 2023 Aditya Castro MD [address], [place], [address] , [facility] [employer] [facility] 4 09:03:52 Onychomyc osis of toenails 749064304 Active 2023 Chris Linda DPM [address] [employer], [address], [place], [address] , [facility] [employer] 4 12:24:55 Folliculi tis 11812333 Active 2023 Aditya Castro MD [address], [address], [address] , [facility] [employer] [facility] 4 10:26:36 Pain of right knee joint 34712449147 4100 Active 2023 Aditya Castro MD [address] [employer], [address], [address] , [employer] [facility] [employer] 4 10:31:07 Bleeding of ear canal 477912406 Active 2023 Aditya Castro MD [address] [employer], [address], [address] , [employer] [facility] [employer] [facility] 4 10:40:38 Acute left otitis media 811715615 Active 2023 Rohit Jessica MD [address], [address], [address] , [employer] [facility] [employer] 4 16:04:39 Thoracic back pain 261289915 Active 2023 Aditya Castro MD [address] [employer], [address], [address] , [employer] [facility] [employer] [facility] 4 16:28:59 Pain of right shoulder blade 232756149 Active 2023 Aditya Castro MD [address] [employer], [address], [address] , [employer] [facility] [employer] [facility] 4 16:30:04 Degenerat ion of thoracolu mbar intervert ebral disc 42598530 Active 2023 Aditya Castro MD [address], [address], [address] , [facility] [employer] [facility] 4 16:30:54 Hypothyro idism 17803322 Active 2023 Aditya Castro MD [address], [address], [address] , [place] [facility] 4 16:34:29 Uncontrol led type 2 diabetes mellitus 564759467 Active 2023 Aditya Castro MD [address], [address], [place], [address] , [place] [facility] 4 09:03:03 Bilateral osteoarth ritis of knees 06003525846 9107 Active 2023 Sofia Newby null, [place] [facility] 4 11:42:16 Pain of left knee joint 90579783891 4107 Active 2023 LESLY Gambino [address], [address], [place], [address] , [facility] 4 13:42:14 Pain in right hip joint 65439594291 9102 Active 2023 Lisa Lopez CNA null, [place] [facility] [facility] 4 11:11:43 Trochante margarita bursitis of right hip 81636432535 9100 Active 2023 LESLY Gambino [address], [address], [place], [address] , [facility] [facility] 4 12:00:40 Gallstone 204782938 Active 2023 Aditya Castro MD [address], [address], [place], [address] , [place] [facility] 4 11:21:33 Right flank pain 497134422 Active 2023 Aditya Castro MD [address], [address], [place], [address] , [place] [facility] 4 11:29:38 Kidney stone 14192927 Active 2023 Aditya Castro MD [address], [address], [place], [address] , [place] [facility] 4 11:31:01 Notes:blood clots, coronary artery disease, head trauma or injury, kidney disease, seizures, use of blood thinners, balance problems, numbness or tingling, loss of memory, swelling in legs, shortness of breath, muscle pain, back/neck pain, swollen or painful joints, excessive thirst, dry mouth, sleep apnea, wears glasses Some problems listed in Document: #[id number] could not be added to this patient's chart. Please review this document and add these problems to the patient's chart manually as needed. Problem Notes None recorded. Procedures Surgical History Date Name Laterality Status Provider Name and Address Organization Details Recorded Time 05/02/20 24 Nail Debridement completed Chris Linda DPM [address], [address], [place], [address], [employer] 05/20/2024 09:31:13 03/11/20 24 Nail Debridement completed Chris Linda DPM [address], [address], [place], [address], [employer] 03/11/2024 12:35:50 03/11/20 24 Wound Care-Podiatry completed Chris Linda DPM [address], [address], [place], [address], [employer] 03/11/2024 12:34:57 01/08/20 24 Wound Care-Podiatry completed Chris Linda DPM [address], [address], [place], [address], [employer] 01/08/2024 12:26:31 12/25/19 24 Medicare Wellness CPT Code, subsequent completed Beth Willis RN [facility] [employer] [facility] 12/25/2023 15:24:37 11/06/19 24 Medicare Wellness CPT Code, subsequent cancelled Beth Willis RN [facility] [employer] 11/03/2023 10:10:00 01/08/20 22 SEPTOPLASTY (SURG) completed Not Available [facility] hospital 10/19/2022 01:16:48 01/22/20 21 Cardiac Cath completed Not Available [facility] 023 01:06:21 reduction of nasal turbinate completed Not Available Critical access hospital 10/19/2022 01:06:21 procedure on heart completed Lisa Lopez CNA [place] [facility] [employer] 05/10/2024 11:11:45 Imaging Results None recorded. Procedure Notes None recorded. Medical Equipment None Reported. Allergies Allergen ID Allergen Name Allergen Category Reaction Reaction Severity Criticality Documentation Date Start Date Code Code System Note Provider Name and Address Organization Details Recorded Time 1834 Iodinated contrast media (substanc e) medicatio n rash severe Not available 10/19/2022 64073 2004 SNOMED Not Available [facility] 3 01:16:23 1835 Brilinta medicatio n rash severe Not available 10/19/2022 21676 36 RxNorm Not Available [facility] 3 01:16:23 1836 allopurin ol medicatio n other severe Not available 10/19/2022 519 RxNorm Not Available [facility] 3 01:16:23 Medications Name Sig Start Date Stop Date Status Note LastModified by Organization Details LastModified Time cyclobenza nawaf 10 mg tablet TAKE 1 TABLET BY MOUTH EVERY 12 HOURS NEEDED active Not Available Not Available No t Available furosemide 40 mg tablet TK 1 T PO BID active Not Available Not Available No t Available atorvastat in 40 mg tablet TAKE 2 TABLET BY MOUTH EVERY DAY AT BEDTIME active Not Available Not Available No t Available atorvastat in 80 mg tablet Take 1 tablet every day by oral route at bedtime for 90 days. 2023 active Not Available Not Available Not Avai lable carvedilol 25 mg tablet TK 1 T PO Q 12 H active Not Available Not Available No t Available clonidine HCl 0.1 mg tablet TAKE 1 TABLET BY MOUTH THREE TIMES PER DAY DIRECTED active Not Available Not Available No t Available prednisone 10 mg tablet Take 1 tablet every day by oral route as directed for 7 days. active Not Available Not Available No t Available doxycyclin e hyclate 100 mg capsule 04/24 completed Not Available Not Available Not Available atorvastat in 20 mg tablet TAKE 1 TABLET BY MOUTH AT BEDTIME WITH 40MG TABLET TO EQUAL 60 MG DAILY active Not Available Not Available No t Available ketoconazo le 2 % shampoo APPLY EXTERNAL LY 2 TO 3 TIMES EVERY WEEK NEEDED active Not Available Not Available No t Available tizanidine 2 mg tablet active Not Available Not Available Not Available albuterol sulfate 2.5 mg/3 mL (0.083 %) solution for nebulizati on USE 1 VIAL VIA NEBULIZE R EVERY 6 HOURS NEEDED FOR DYSPNEA 04/25 completed Not Available Not Available Not Available cetirizine 10 mg tablet TAKE 1 TABLET BY MOUTH EVERY DAY NEEDED 2023 active Not Available Not Available Not Avai lable azithromyc in 250 mg tablet TAKE 2 TABLETS (500 MG) BY ORAL ROUTE ONCE DAILY FOR 1 DAY THEN 1 TABLET (250 MG) BY ORAL ROUTE ONCE DAILY FOR 4 DAYS 01/07 completed Not Available Not Available Not Available Glucagon Emergency Kit 1 mg solution for injection 01/07 completed Not Available Not Available Not Available Lidocaine Viscous 2 % mucosal solution Take 10 mL every 6 hours by oral route as needed for 7 days. 01/07 completed Not Available Not Available Not Available ofloxacin 0.3 % eye drops INT 1 GTT IN OS QID 01/07 completed Not Available Not Available Not Available metoprolol tartrate 100 mg tablet TAKE 1 TABLET BY MOUTH EVERY 12 HOURS DIRECTED 07/13 completed Not Available Not Available Not Available amiodarone 200 mg tablet 01/07 completed Not Available Not Available Not Available benzonatat e 200 mg capsule TAKE 1 CAPSULE BY MOUTH EVERY 8 HOURS FOR 7 DAYS NEEDED 07/10 completed Not Available Not Available Not Available metoprolol succinate ER 50 mg tablet,ext ended release 24 hr active Not Available Not Available Not Available ampicillin 500 mg capsule TK ONE C PO TID 04/24 completed Not Available Not Available Not Available ranitidine 300 mg tablet Take 1 tablet by mouth at bedtime 12/23 completed Not Available Not Available Not Available cephalexin 250 mg capsule 01/07 completed Not Available Not Available Not Available hydrocodon e 5 mg-acetami nophen 325 mg tablet 03/11 completed Not Available Not Available Not Available ondansetro n HCl 4 mg tablet Take 1 tablet every 6 hours by oral route as needed for 5 days. active Not Available Not Available No t Available famotidine 40 mg tablet TAKE 1 TABLET BY MOUTH EVERY DAY AT BEDTIME active Not Available Not Available No t Available Medrol (Emanuel) 4 mg tablets in a dose pack Take 1 dose pk every day by oral route as directed for 6 days. 12/06 completed Not Available Not Available Not Available bupivacain e HCl 0.5 % (5 mg/mL) injection solution Take 20 mg by injectio n route. 2023 active Not Available Not Available Not Avai lable prednisone 20 mg tablet 03/08 completed Not Available Not Available Not Available isosorbide mononitrat e ER 30 mg tablet,ext ended release 24 hr TAKE 1 TABLET BY MOUTH DAILY 12/06 completed Not Available Not Available Not Available doxycyclin e hyclate 50 mg capsule 03/08 completed Not Available Not Available Not Available Viagra 50 mg tablet 04/18 completed Not Available Not Available Not Available clonidine HCl 0.3 mg tablet 07/13 completed Not Available Not Available Not Available Generlac 10 gram/15 mL oral solution active Not Available Not Available Not Available lidocaine 4 % topical cream Apply 1 applicat ion twice a day by topical route as directed for 30 days. active Not Available Not Available No t Available metolazone 5 mg tablet 07/13 completed Not Available Not Available Not Available Lantus U-100 Insulin 100 unit/mL subcutaneo us solution INJ 45 UNITS SC D IN THE BHUMIKA 05/08 completed Not Available Not Available Not Available phentermin e 15 mg capsule Take 1 capsule every day by oral route before meals for 30 days. 03/18 completed Not Available Not Available Not Available amlodipine 2.5 mg tablet TAKE 1 TABLET BY MOUTH EVERY MORNING active Not Available Not Available No t Available metronidaz ole 500 mg tablet 09/06 completed Not Available Not Available Not Available lidocaine HCl 2 % mucosal jelly Take 1 applicat ion twice a day by mucous route as needed for 30 days. 05/03 completed Not Available Not Available Not Available phentermin e 37.5 mg tablet Take 1 tablet every other day by oral route before meals for 30 days. 09/04 completed [address] Not Available Not Available Not Available clopidogre l 75 mg tablet TK 1 T PO D 12/06 completed Not Available Not Available Not Available amlodipine 5 mg tablet 04/18 completed Not Available Not Available Not Available allopurino l 100 mg tablet 04/24 completed Not Available Not Available Not Available valacyclov ir 500 mg tablet active Not Available Not Available Not Available omeprazole 40 mg capsule,de layed release TAKE 1 CAPSULE BY MOUTH EVERY DAY IN THE MORNING 07/10 completed Not Available Not Available Not Available aspirin 81 mg tablet,del ayed release Take 1 tablet every day by oral route after meals for 30 days. 09/06 completed Not Available Not Available Not Available tramadol 50 mg tablet Take 1 tablet every 8 hours by oral route as needed for 10 days. active Not Available Not Available No t Available phentermin e 30 mg capsule Take 1 capsule every day by oral route before meals for 30 days. 08/08 completed [address] Not Available Not Available Not Available ketorolac 30 mg/mL (1 mL) injection solution Inject 1 mL as needed by intramus cular route for 1 day. 05/07 completed Not Available Not Available Not Available simvastati n 40 mg tablet TK 1 T PO QPM 08/01 completed Not Available Not Available Not Available levothyrox ine 25 mcg tablet Take 1 tablet every day by oral route in the morning for 90 days. active Not Available Not Available No t Available warfarin 3 mg tablet active Not Available Not Available No t Available ketorolac 10 mg tablet Take 1 tablet every 8 hours by oral route as needed for 5 days. 2023 active Not Available Not Available Not Avai lable ketorolac 0.5 % eye drops INT 1 GTT IN OD FOUR TIMES DAILY. START 3 DAYS B EYE SURGERY 08/01 completed Not Available Not Available Not Available prednisone 10 mg tablets in a dose pack Take 1 tab by mouth, 3 times a day for 3 daysTake 1 tab by mouth 2 times a day for 2 daysTake 1 tab by mouth once a day for 1 day 07/15 completed Not Available Not Available Not Available Flarex 0.1 % eye drops,susp ension 09/06 completed Not Available Not Available Not Available ciclopirox 8 % topical solution APPLY TO THE AFFECTED AREA(S) toenails BY TOPICAL ROUTE ONCE DAILY PREFERAB LY AT BEDTIME OR 8 HOURS BEFORE WASHING 01/24 completed Not Available Not Available Not Available meloxicam 7.5 mg tablet TAKE 1 TABLET BY MOUTH EVERY DAY WITH FOOD NEEDED active Not Available Not Available No t Available oxycodone- acetaminop hen 5 mg-325 mg tablet 05/23 completed Not Available Not Available Not Available isosorbide mononitrat e ER 60 mg tablet,ext ended release 24 hr TK 1 T PO QAM active Not Available Not Available No t Available doxycyclin e monohydrat e 50 mg capsule 09/06 completed Not Available Not Available Not Available clonidine HCl 0.2 mg tablet TAKE 1 TABLET BY MOUTH EVERY 8 HOURS active Not Available Not Available No t Available famotidine 20 mg tablet 06/29 completed Not Available Not Available Not Available prednisolo ne acetate 1 % eye drops,susp ension 03/08 completed Not Available Not Available Not Available torsemide 100 mg tablet 05/07 completed Not Available Not Available Not Available terazosin 2 mg capsule TK 1 C PO Q 12 H 07/13 completed Not Available Not Available Not Available tamsulosin 0.4 mg capsule TAKE 1 CAPSULE BY MOUTH TWICE DAILY DIRECTED active Not Available Not Available No t Available furosemide 80 mg tablet 09/06 completed Not Available Not Available Not Available Humalog U-100 Insulin 100 unit/mL subcutaneo us solution active Not Available Not Available Not Available Kenalog 10 mg/mL suspension for injection Take 20 mg by injectio n route. 2023 active [facility]: [phone] Not Available Not Available Not Available nifedipine ER 90 mg tablet,ext ended release 24 hr 01/07 completed Not Available Not Available Not Available meclizine 25 mg tablet TAKE 1 TABLET BY MOUTH EVERY 8 HOURS FOR 7 DAYS NEEDED active Not Available Not Available No t Available baclofen 10 mg tablet TAKE 1 TABLET BY MOUTH EVERY 8 HOURS NEEDED active Not Available Not Available No t Available amlodipine 10 mg tablet active Not Available Not Available Not Available doxycyclin e monohydrat e 100 mg capsule 08/01 completed Not Available Not Available Not Available gemfibrozi l 600 mg tablet TAKE 1 TABLET BY MOUTH TWICE DAILY DIRECTED active Not Available Not Available No t Available hydrocodon e 7.5 mg-acetami nophen 325 mg tablet 02/14 completed Not Available Not Available Not Available cephalexin 500 mg capsule active Not Available Not Available Not Available hydralazin e 100 mg tablet TAKE 1 TABLET BY MOUTH EVERY 8 HOURS DIRECTED 07/13 completed Not Available Not Available Not Available erythromyc in 5 mg/gram (0.5 %) eye ointment active Not Available Not Available Not Available clotrimazo le-betamet hasone 1 %-0.05 % topical cream APPLY TO THE AFFECTED AND SURROUND ING AREAS OF SKIN BY TOPICAL ROUTE 2 TIMES PER DAY IN THE MORNING AND EVENING FOR 2 WEEKS 12/06 completed Not Available Not Available Not Available warfarin 2 mg tablet 03/11 completed Not Available Not Available Not Available fluorometh olone 0.1 % eye drops,susp ension active Not Available Not Available Not Available lidocaine 5 % topical patch UNWRAP AND APPLY 1 PATCH TOPICALL Y TO THE SKIN EVERY DAY. MAY WEAR UP TO 12 HOURS 2023 active Not Available Not Available Not Avai lable losartan 25 mg tablet 12/06 completed Not Available Not Available Not Available FML Forte 0.25 % eye drops,susp ension active Not Available Not Available Not Available metoprolol tartrate 50 mg tablet 09/12 completed Not Available Not Available Not Available nitroglyce rin 0.4 mg sublingual tablet DIS 1 T UNT Q 5 MIN PRF CP FOR UP TO 3 DOSES 05/07 completed Not Available Not Available Not Available docusate sodium 100 mg capsule Take 1 capsule twice a day by oral route as directed for 90 days. 07/13 completed Not Available Not Available Not Available omeprazole 20 mg capsule,de layed release TAKE 1 CAPSULE BY MOUTH EVERY DAY IN THE MORNING active Not Available Not Available No t Available gentamicin 0.1 % topical cream APPLY A SMALL AMOUNT TO THE AFFECTED AREA wounds of feet BY TOPICAL ROUTE 3 TIMES PER DAY active Not Available Not Available No t Available Procrit 20,000 unit/mL injection solution 05/16 completed Not Available Not Available Not Available insulin syringe U-100 with needle 1 mL 31 gauge x 5/16 08/01 completed Not Available Not Available Not Available allopurino l 300 mg tablet Take 1 tablet every day by oral route as directed for 30 days. 2017 active Not Available Not Available Not Avai lable hydralazin e 50 mg tablet active Not Available Not Available Not Available mupirocin 2 % topical ointment APPLY A SMALL AMOUNT TO THE AFFECTED AREA BY TOPICAL ROUTE 3 TIMES PER DAY 03/11 completed Not Available Not Available Not Available metoprolol succinate ER 25 mg tablet,ext ended release 24 hr active Not Available Not Available Not Available ergocalcif lesley (vitamin D2) 1,250 mcg (50,000 unit) capsule Take 1 capsule( s) every week by oral route for 90 days. 2023 active Not Available Not Available Not Avai lable Novolog U-100 Insulin aspart 100 unit/mL subcutaneo us solution active Not Available Not Available Not Available cefuroxime axetil 500 mg tablet active Not Available Not Available No t Available polyethyle ne glycol 3350 17 gram/dose oral powder Take 17 g every day by oral route as directed for 90 days. 07/13 completed Not Available Not Available Not Available levofloxac in 500 mg tablet active Not Available Not Available Not Available albuterol sulfate HFA 90 mcg/actuat ion aerosol inhaler INHALE 2 PUFFS BY MOUTH EVERY 6 HOURS FOR 10 DAYS NEEDED active Not Available Not Available No t Available colchicine 0.6 mg tablet TAKE 1 TABLET BY MOUTH 3 TIMES WEEKLY active Not Available Not Available No t Available ketoconazo le 2 % topical cream APPLY TO THE AFFECTED AREA(S) toenails BY TOPICAL ROUTE ONCE DAILY active Not Available Not Available No t Available ondansetro n 4 mg disintegra ting tablet Place 1 tablet every 6-8 hours by translin gual route as needed for 5 days. active Not Available Not Available No t Available cefdinir 300 mg capsule 04/24 completed Not Available Not Available Not Available losartan 100 mg tablet 10/11 completed Not Available Not Available Not Available fluticason e propionate 50 mcg/actuat ion nasal spray,susp ension SHAKE LIQUID AND USE 1 SPRAY IN EACH NOSTRIL EVERY DAY DIRECTED active Not Available Not Available No t Available calcitriol 0.25 mcg capsule active Not Available Not Available Not Available amoxicilli n 875 mg-potassi um clavulanat e 125 mg tablet Take 1 tablet twice a day by oral route as directed for 10 days. 12/24 completed Not Available Not Available Not Available amoxicilli n 500 mg-potassi um clavulanat e 125 mg tablet 03/11 completed Not Available Not Available Not Available oxycodone 5 mg tablet Take 1 tablet every 6 hours by oral route as needed for 5 days. active Not Available Not Available No t Available ezetimibe 10 mg tablet TAKE 1 TABLET BY MOUTH EVERY DAY DIRECTED active Not Available Not Available No t Available Novolog FlexPen U-100 Insulin aspart 100 unit/mL (3 mL) subcutaneo us 10/11 completed Not Available Not Available Not Available cyclobenza nawaf 5 mg tablet 04/24 completed Not Available Not Available Not Available cyclospori ne 0.05 % eye drops in a dropperett e active Not Available Not Available Not Available OraMagicRx mouthwash Take 10 mL every 6 hours by mucous route as directed for 7 days. 05/07 completed Not Available Not Available Not Available moxifloxac in 0.5 % eye drops active Not Available Not Available No t Available ciprofloxa socorro 0.3 %-dexameth asone 0.1 % ear drops,susp ension INSTILL 4 DROPS INTO AFFECTED EAR(S) BY OTIC ROUTE 2 TIMES PER DAY FOR 7 DAYS 03/11 completed Not Available Not Available Not Available metoprolol tartrate 25 mg tablet Take 1 tablet twice a day by oral route as directed for 90 days. 01/07 completed Not Available Not Available Not Available calcium acetate(ph osphate binders) 667 mg capsule active Not Available Not Available Not Available Byetta 5 mcg/dose (250 mcg/mL)1.2 mL subcutaneo us pen injector Take 5 mcg SubQ every 12 hrs as directed . active Not Available Not Available No t Available furosemide twice daily 07/10 completed 120mg tabs Not Available Not Available Not Available ranolazine ER 500 mg tablet,ext ended release,12 hr TK 1 T PO Q 12 H. 01/07 completed Not Available Not Available Not Available OneTouch Ultra2 Meter kit 04/25 completed Not Available Not Available Not Available BD Ultra-Fine Original Pen Needle 29 gauge x 1/2 01/07 completed Not Available Not Available Not Available Humira Pen 40 mg/0.8 mL subcutaneo us kit 04/24 completed Not Available Not Available Not Available cholecalci ferol (vitamin D3) 1,250 mcg (50,000 unit) capsule Take 1 capsule every week by oral route as directed . 01/07 completed Not Available Not Available Not Available ferrous sulfate 324 mg (65 mg iron) tablet,del ayed release TAKE 1 TABLET BY MOUTH TWICE DAILY WITH MEALS 03/08 completed Not Available Not Available Not Available Uloric 80 mg tablet TK 1 T PO D 04/24 completed Not Available Not Available Not Available febuxostat 40 mg tablet TAKE 1 TABLET BY MOUTH EVERY DAY DIRECTED active Not Available Not Available No t Available OneTouch Verio test strips TEST 4 TO 6 TIMES D active Not Available Not Available No t Available lidocaine 5 % topical ointment APPLY TOPICALL Y TO THE AFFECTED AREA TWICE DAILY TO THREE TIMES DAILY NEEDED 04/18 completed Not Available Not Available Not Available OneTouch Delica Lancets 30 gauge 09/06 completed Not Available Not Available Not Available Vascepa 1 gram capsule Take 2 capsules twice a day by oral route after meals for 90 days. active Not Available Not Available No t Available Eliquis 5 mg tablet Take 1 tablet twice a day by oral route for 30 days. 12/06 completed Not Available Not Available Not Available Eliquis 2.5 mg tablet 01/07 completed Not Available Not Available Not Available Victoza 3-Emanuel 0.6 mg/0.1 mL (18 mg/3 mL) subcutaneo us pen injector Inject 1.2 mg every day by subcutan eous route as directed for 30 days. 05/24 completed Not Available Not Available Not Available Humulin N NPH U-100 Insulin KwikPen 100 unit/mL (3 mL) [facility] active Not Available Not Available Not Available potassium chloride ER 20 mEq tablet,ext ended release active Not Available Not Available Not Available True Metrix Glucose Meter 04/25 completed Not Available Not Available Not Available Saxenda 3 mg/0.5 mL (18 mg/3 mL) subcutaneo us pen injector ADMINIST ER 0.1 ML UNDER THE SKIN EVERY DAY DIRECTED 07/29 completed Not Available Not Available Not Available Humalog KwikPen U-200 Insulin 200 unit/mL (3 mL) subcutaneo us 08/01 completed Not Available Not Available Not Available selenium sulfide 2.5 % lotion 07/19 /2021 completed Not Available Not Available Not Available TechLITE Pen Needle 32 gauge x 1/4 USE WITH INSULIN DIRECTED BY ENDO active Not Available Not Available No t Available TechLITE Pen Needle 32 gauge x 32 active Not Available Not Available Not Available Basagllucio MatuteikPen U-100 Insulin 100 unit/mL (3 mL) subcutaneo us active Not Available Not Available Not Available TRUEplus Pen Needle 31 gauge x 5/16 USE WITH INSULIN INJECTIO NS 4 TIMES DAILY 09/06 completed Not Available Not Available Not Available Linzess 72 mcg capsule Take 1 capsule every day by oral route as directed for 90 days. 2023 active Not Available Not Available Not Avai lable Admelog SoloStar U-100 Insulin lispro 100 unit/mL subcutaneo us pen INJ 12 TO 22 UNI SC TID WITH MEALS 03/08 completed Not Available Not Available Not Available OneTouch Ultra Blue Test Strip 09/06 completed Not Available Not Available Not Available Omnipod Dash Pods (Gen 4) subcutaneo us cartridge 01/07 completed Not Available Not Available Not Available OneTouch Delica Plus Lancet 33 gauge 01/07 completed Not Available Not Available Not Available Gvoke HypoPen 2-Pack 1 mg/0.2 mL subcutaneo us auto-injec tor active Not Available Not Available Not Available aspirin 81 mg capsule Take 1 capsule every day by oral route. active Not Available Not Available No t Available Omnipod 5 G6 Pods (Gen 5) subcutaneo us cartridge active Not Available Not Available No t Available Omnipod 5 G6 Intro Kit (Gen 5) subcutaneo us cartridge with controller 05/10 completed Not Available Not Available Not Available Vitals Date Recorded Body height Body mass index (BMI) Body weight Body temperature Heart rate Oxygen saturation Oxygen saturation in Arterial blood by Pulse oximetry Systolic blood pressure Diastolic blood pressure Provider Name and Address Organization Details Last Updated DateTime 4 177.8 cm 38 kg/m2 709377. 19 g 97.3 [degF] 72 /min 97 % 97 % 150 mm[Hg] 78 mm[Hg] Lucinda Fletcher RN [place] 4 11:26:31 Date Recorded Respiratory rate Provider Name a nd Address Organization Details Last Updated DateTime 07/15/2024 22 /min Lisa Gonzáles [address], [facility] [address], [place], [address], [place] [employer] [facility] 07/15/2024 12:05:38 Social History Question Answer Notes LastModified by Organization Details LastModified Time Tobacco Smoking Status Never Smoker Not Available [employer] 10/19/2022 01:04:37 Do You Have An Advance Directive? No [id number] Information not available 10/19/2022 What Is Your Level Of Alcohol Consumption? None [id number] Information not available 10/19/2022 Are You Blind Or Do You Have Difficulty Seeing? No [id number] Information not available 10/19/2022 Is Blood Transfusion Acceptable In An Emergency? Yes Information not available 12/07/2023 What Is Your Level Of Caffeine Consumption? Occasional [id number] Information not available 10/19/2022 How Much Tobacco Do You Chew? None MIGRATION.030 [id number] Information not available 10/19/2022 What Is Your Code Status? Full Code Information not available 12/07/2023 In The 14 Days Before Symptom Onset, Have You Had Close Contact With A Laboratory-confi rmed COVID-19 While That Case Was Ill? No MIGRATION.[id number] Information not available 10/19/2022 In The 14 Days Before Symptom Onset, Have You Had Close Contact With A Person Who Is Under Investigation For COVID-19 While That Person Was Ill? No [id number] [id number] Information not available 10/19/2022 Are You Deaf Or Do You Have Serious Difficulty Hearing? No MIGRATION.030 [id number] Information not available 10/19/2022 What Type Of Diet Are You Following? CARDIAC And Renal MIGRATION.030 [id number] Information not available 10/19/2022 Which Illicit Or Recreational Drugs Have You Used? NONE [id number].[id number] Information not available 10/19/2022 Do You Or Have You Ever Used E-cigarettes Or Vape? Never Used Electronic Cigarettes MIGRATION.[id number] Information not available 10/19/2022 What Is The Highest Grade Or Level Of School You Have Completed Or The Highest Degree You Have Received? [id number] 2 Years [id number] Information not available 10/19/2022 What Is Your Occupation? DISABLED [id number] Information not available 10/19/2022 Have There Been Any Changes To Your Family Or Social Situation? No Information not available 12/07/2023 Are There Any Guns Present In Your Home? No [id number] Information not available 10/19/2022 Do You Use Insect Repellent Routinely? No Information not available 12/07/2023 Where Do You Live? SingleLevelHouse Information not available 12/07/2023 Advance Directive- Providers Has Reviewed Directive And Consents To Follow Them (insert Provider Name With Any Objectives In Notes Field) No [id number] Information not available 10/19/2022 Presence Of Domestic Violence No Information not available 12/07/2023 Guns Present In The Home? No Information not available 12/07/2023 Are You Able To Care For Yourself? Yes Information not available 12/07/2023 Are You Blind Or Do Yo Have Difficulty Seeing? No Information not available 12/07/2023 Are You Deaf Or Do You Have Serious Difficulty Hearing? No Information not available 12/07/2023 General Stress Level? Moderate Information not available 12/07/2023 Live Alone Of With Others? With Others Son Information not available 12/07/2023 Do You Have A Medical Power Of Natural [employer] Curator? No Information not available 12/07/2023 What Was The Date Of Your Most Recent Tobacco Screening? 12/25/2023 [email or web address] Information not available 12/25/2023 Do You Have Any Pets? Yes Information not available 12/07/2023 What Is Your Relationship Status? Single [id number] Information not available 10/19/2022 Do You Use Your Seat Belt Or Car Seat Routinely? Yes MIGRATION.[id number] [id number] Information not available 10/19/2022 Do You Have Smoke And Carbon Monoxide Detectors In Your Home? Yes Information not available 12/07/2023 Are You Passively Exposed To Smoke? No Information not available 12/07/2023 Do You Or Have You Ever Used Smokeless Tobacco? Never Used Smokeless Tobacco MIGRATION.[id number] [id number] Information not available 10/19/2022 Are There Any Smokers In Your House? No Information not available 12/07/2023 Do You Feel Stressed (tense, Restless, Nervous, Or Anxious, Or Unable To Sleep At Night)? [id number] MIGRATION.030 [id number] Information not available 10/19/2022 Do You Use Sunscreen Routinely? No Information not available 12/07/2023 Have You Recently Traveled Abroad? No MIGRATION.0301 [id number] Information not available 10/19/2022 Are You Currently In School? No MIGRATION.0301 [id number] Information not available 10/19/2022 Sex: Unknown Functional Status Question Answer Note LastModified by [employer] Details LastModified Time Do you have difficulty walking or climbing stairs? No [id number] Information not available 10/19/2022 Do you have difficulty doing errands alone? No [id number] Information not available 10/19/2022 Do you have difficulty dressing or bathing? No [id number] Information not available 10/19/2022 What is your exercise level? Occasional [id number] Information not available 10/19/2022 Mental Status Question Answer Note LastModified by [employer] Details LastModified Time Do you have difficulty concentrating, remembering or making decisions? No [id number] Information not available 10/19/2022 Family History Relationship Description Onset Age of this Age Resolved Age Notes LastModified by Organization Details LastModified Time Father Heart disease [id number] Not available 10/19/2022 01:06:25 Father Hypertensive disorder [id number] Not available 10/19/2022 01:06:25 Notes:cancer-mother NO ENT H ISTORY Medical History Condition Response SLEEP APNEA N MRSA N ALLERGIES/HAYFEVER N LUNG DISEASE/DISORDER N HEART ARRHYTHMIA Y INSOMNIA N HISTORY OF DRUG ABUSE N RADIATION / CHEMOTHERAPY N COPD N HIGH CHOLESTEROL / HYPERLIPIDEMIA Y HYPERTHYROIDISM N BLOOD DISEASES N EAR OR HEARING PROBLEMS N HYPOTHYROIDISM N SHINGLES N DEPRESSION (INCLUDING POST ) N HAVE YOU BEEN HOSPITALIZED OR SEEN IN [facility] IN THE PAST YEAR ? N STROKE/TIA N ULCERS N OBESITY Y GERD/NAUSEA Y HISTORY WITH COMPLICATIONS WITH ANESTHES IA ? N ANEURYSM N Do you have Advance directive? N ARTHRITIS Y USE OF BLOOD THINNERS Y NO SIGNIFICANT PAST MEDICAL HISTORY Y SKIN PROBLEMS Y DIABETES, TYPE Y PARATHYROID DISEASE N ENT N SEASONAL ALLERGIES N HEARTBURN / REFLUX N BLOOD CLOTS Y HEPATITIS / LIVER DISEASE N SLEEP DISORDER N PAIN Y SEIZURES/EPILEPSY N HEADACHES/MIGRAINES N GI PROBLEMS Y CHF N PACEMAKER N DIZZINESS N HEART DISEASE/HEART PROBLEMS Y AIDS/HIV N FRACTURES N HYPERTENSION Y CANCER: SPECIFY N TOURETTE'S N BLOOD TRANSFUSION N ANESTHESIA COMPLICATIONS N ANEMIA/BLOOD DISORDER Y CHRONIC EAR INFECTIONS N AUTOIMMUNE DISEASE N TUBERCULOSIS N Immunizations Vaccine Type Date Status Note Provider Nam e and Address Organization Details Recorded Time Influenza, split virus, quadrivalent, PF 3 completed BERNARDO Reddy [place] 07/03/2023 11:25:39 pneumococcal polysaccharide PPV23 0 completed Not Available [facility] 10/19/2022 01:16:16 Tdap 0 completed Not Available [facility] 10/19/2022 01:16:16 Influenza, split virus, quadrivalent, PF 9 completed Not Available [facility] 10/19/2022 01:16:16 Influenza, split virus, quadrivalent, PF 2 completed Not Available [facility] 10/19/2022 01:16:16 Influenza, split virus, quadrivalent, PF 1 completed Not Available [facility] hospital 10/19/2022 01:16:16 Past Encounters Encounter ID Performer Location Encounter Start Date Encounter Closed Date Diagnosis/Indication Diagnosis SNOMED-CT Code Diagnosis ICD10 Code [id number] LESLY Gambino [facility] [place] [address] [place] [address] 06/21/2024 11:06:53 06/21/2024 11:57:45 Bilateral osteoarthritis of knees 7675844766 00683 M17.0 Pain of ri ght knee joint 3696979998 94462 M25.561 Pain of le ft knee joint 0424832311 15512 M25.562 Pain in ri ght hip joint 8982504056 61642 M25.551 Trochanter ic bursitis of right hip 4872851547 27354 M70.61 [id number] Aditya Castro MD [facility] [address] [place] [address] 07/15/2024 10:53:35 07/15/2024 12:16:54 Chronic constipation 182001215 K59.09 Chronic back pain 197033 002 G89.29 Obesity 278544232 E66.9 [facility] 748691139 Z76.89 Gallstone 626358511 K80. 20 Right flank pain 3634013 09 R10.9 Kidney stone 94207409 N2 0.0 Impaired mobility 942861 05 Z74.09 Health Concerns Section Related Observation LastModified by Organization Detai ls LastModified Time None Recorded Concern Status LastModified by Organization Details LastModified Time None Recorded Payers Encounter Date Sequence Insurance Name Policy Number Policy Ge Covered Member ID Ge Member ID Guarantor Name 07/15/2024 2 [place] WHEN MEDICARE OR MEDICARE REPLACEMENT PRIMARY) Juvenal Daigle [id number] Juvenal Daigle 07/15/2024 1 [facility] (MEDICARE REPLACEMENT/AD VANTAGE - PPO) [id number] Juvenal Daigle [id number] Juvenal Daigle Notes Date Note Type Note Provider Name and Address Organization Details Recorded Time 07/15/2024 text/html ACV:ED fuv. C/o Rt sided back area pain for last few days. Pt has been to ED x 2 for this and got labs and CT scan done and he suppose to get pain meds from ED, but as per his pharmacy today, they never got any Rx from them. So pt needs Rx for pain med. Pt has chronic back pain for last several years and was seeing Pain clinic and Spine surgeon for it in the past; but he has not seen them for last couple years. Pt is f/u with Nephro, Endo and Cardio regularly. Aditya Castro MD [address] [place] [address], [place] [address], [place], [address], [facility] [employer] 07/15/2024 12:12:12
--- OUTSIDE RECORDS SUMMARY | 2024-08-18 13:01 | XMS_ITS | Encounter Summary ---
Author Organization [facility] Address [address] [place] [address] Care Team Providers Care Inspector Screen Printing Name Role Phone Aditya Castro Primary Care Provider Unavailab le Encounter Details Date Type Department Care Team (Latest Contact Info) Description 04/26/2019 12:20 PM CDT - 04/26/2019 12:53 PM CDT Hospital Encounter [facility] [address] [place] [id number] Judah Norton MD [address] [facility] [address] [place] [address] Discharge Disposition: Home or Self Care Social [...] fluticasone propionate (FLONASE) 50 MCG/ACT nasal spray [place] 1 spray into each nostril once daily [...] test strip 04/17/2019 vitamin D, ergocalciferol, (DRISDOL) 78973 units capsule Take 50,000 Units by mouth [...] Procedure Name Priority Date/Time Associated Diagnosis Comments URINALYSIS W/MICROSCOPIC NO CULTURE Routine 04/26/2019 12:42 PM CDT Gout, unspecified cause, unspecified chronicity, unspecified site Sicca, unspecified type (HCC) CYCLIC CITRUL PEPTIDE ANTIBODY IGG/IGA (CCP) Routine 04/26/2019 12:42 PM CDT Gout, unspecified cause, unspecified chronicity, unspecified site Sicca, unspecified type (HCC) URIC ACID BLOOD Routine 04/26/2019 12:42 PM CDT Gout, unspecified cause, unspecified chronicity, unspecified site Sicca, unspecified type (HCC) RHEUMATOID FACTOR BLOOD QUANTITATIVE Routine 04/26/2019 12:42 PM CDT Gout, unspecified cause, unspecified chronicity, unspecified site Sicca, unspecified type (HCC) C-REACTIVE PROTEIN Routine 04/26/2019 12 :42 PM CDT Gout, unspecified cause, unspecified chronicity, unspecified site Sicca, unspecified type (HCC) SHAWN BLOOD SCREEN W/REFLEX TITER Routine 04/26/2019 12:42 PM CDT Gout, unspecified cause, unspecified chronicity, unspecified site Sicca, unspecified type (HCC) SS-B (SJOGREN'S) ANTIBODY Routine 04/26/2019 12:42 PM CDT Gout, unspecified cause, unspecified chronicity, unspecified site Sicca, unspecified type (HCC) SS-A (SJOGREN'S) ANTIBODY Routine 04/26/2019 12:42 PM CDT Gout, unspecified cause, unspecified chronicity, unspecified site Sicca, unspecified type (HCC) VITAMIN D 25-HYDROXY Routine 04/26/2019 12:42 PM CDT Gout, unspecified cause, unspecified chronicity, unspecified site Sicca, unspecified type (HCC) ALDOLASE Routine 04/26/2019 12:42 PM CDT Gout, unspecified cause, unspecified chronicity, unspecified site Sicca, unspecified type (HCC) ERYTHROCYTE SEDIMENTATION RATE Routine 04/26/2019 12:42 PM CDT Gout, unspecified cause, unspecified chronicity, unspecified site Sicca, unspecified type (HCC) CBC W AUTO DIFFERENTIAL Routine 04/26/2019 12:42 PM CDT Gout, unspecified cause, unspecified chronicity, unspecified site Sicca, unspecified type (HCC) COMPREHENSIVE METABOLIC PANEL Routine 04/26/2019 12:42 PM CDT Gout, unspecified cause, unspecified chronicity, unspecified site Sicca, unspecified type (HCC) LDH BLOOD Routine 04/26/2019 12:42 PM CDT Gout, unspecified cause, unspecified chronicity, unspecified site Sicca, unspecified type (HCC) CK BLOOD Routine 04/26/2019 12:42 PM CDT Gout, unspecified cause, unspecified chronicity, unspecified site Sicca, unspecified type (HCC) documented in this encounter Results * CYCLIC CITRUL PEPTIDE ANTIBODY IGG/IGA (CCP) (04/26/2019 12:42 PM CDT) Pathologist [facility] CCP Antibodies IgG/IgA 17 0 - 19 units 04/29/2019 9:06 PM CDT [facility] ([facility]) Comment: ?Negative ? <20 ?Weak positive ?20 - 39 ?Moderate positive ??40 - 59 ?Strong positive ?>59 Blood BLOOD SPECIMEN / Unknown Lab Venipuncture / Unknown 04/26/2019 12:42 PM CDT 04/26/2019 1:18 PM CDT Narrative [facility] ([facility]) - 04/29/2019 9:06 PM CDT Performed at: ??01 - [address] ??[id number] Parks Recreation Director: Con Grimaldo MD, Phone: ??[phone] Judah Norton MD LAB - SEROLOGY ORDER ROVERTO Performing Organization Address City/[facility]/ZIP Co de Phone Number [facility] ([facility]) [address] [place] [address] [phone] * RHEUMATOID FACTOR BLOOD QUANTITATIVE (04/26/2019 12:42 PM CDT) [facility] Rheumatoid Factor <15 <30 IU/mL 04/26/2019 2:34 PM CDT [facility] Blood BLOOD SPECIMEN / Unknown Lab Venipuncture / Unknown 04/26/2019 12:42 PM CDT 04/26/2019 1:18 PM CDT Judah Norton MD LAB - CHEMISTRY SUSANNAH LEONE [address] [phone] * SS-B (SJOGREN'S) ANTIBODY (04/26/2019 12:42 PM CDT) [facility] SS-B LA Antibody 2.8 0.0 - 19.9 Units 04/30/2019 9:45 AM CDT [facility] Comment: JOSE ENRIQUE Antibody Numeric Result Interpretation: ?<20.0 Units: ??Negative ?20.0 - 39.0 Units: ??Weakly Positive ?>39.0 Units: ??Positive ? Blood BLOOD SPECIMEN / Unknown Lab Venipuncture / Unknown 04/26/2019 12:42 PM CDT 04/26/2019 1:19 PM CDT Judah Norton MD LAB - CHEMISTRY SUSANNAH LEONE Performing Organization Address [facility] Co de Phone Number [address] [phone] * SS-A (SJOGREN'S) ANTIBODY (04/26/2019 12:42 PM CDT) [facility] SS-A (Ro) Antibody 2.7 0.0 - 19.9 Units 04/30/2019 9:45 AM CDT [facility] Comment: JOSE ENRIQUE Antibody Numeric Result Interpretation: ?<20.0 Units: ??Negative ?20.0 - 39.0 Units: ??Weakly Positive ?>39.0 Units: ??Positive ? Blood BLOOD SPECIMEN / Unknown Lab Venipuncture / Unknown 04/26/2019 12:42 PM CDT 04/26/2019 1:19 PM CDT Judah Norton MD LAB - CHEMISTRY SUSANNAH LEONE Performing Organization Address [facility]/ZIP Co de Phone Number [facility] [address] [phone] * SHAWN BLOOD SCREEN W/REFLEX TITER (04/26/2019 12:42 PM CDT) SHAWN Negative 04/27/2019 3:07 PM CDT [facility] ([facility]) Comment: ? Negative ?? <1:80 ? Borderline ??1:80 ? Positive ?? >1:80 Blood BLOOD SPECIMEN / Unknown Lab Venipuncture / Unknown 04/26/2019 12:42 PM CDT 04/26/2019 1:18 PM CDT Narrative [facility] ([facility]) - 04/27/2019 3:07 PM CDT Performed at: ??01 - [facility] [address] [place], [place] ??[id number] Parks Recreation Director: Mehdi Del Angel PhD, Phone: ??[phone] Judah Norton MD LAB - CHEMISTRY SUSANNAH LEONE Performing Organization Address [facility] Co de Phone Number [facility] ([facility]) [address] [place] [address] * (ABNORMAL) VITAMIN D 25-HYDROXY (04/26/2019 12:42 PM CDT) Pathologist [facility] Vitamin D, 25 Hydroxy 15.1(L) See comment: ng/mL 04/26/2019 2:25 PM CDT [facility] Comment: The recommendations for 25-Hydroxy Vitamin [...] Norton MD LAB - CHEMISTRY SUSANNAH LEONE [facility] Organization Address City/State/ZIP Co de Phone Number [address] [phone] * (ABNORMAL) URINALYSIS W/MICROSCOPIC NO CULTURE (04/26/2019 12:42 PM CDT) Color UA Yellow Straw, Yellow, Colorless 04/26/2019 1:31 PM CDT [facility] Clarity UA Slt Cloudy Clear, Slt Cloudy 04/26/2019 1:31 PM T [facility] Specific [place] UA 1.013 1.005 - 1.030 04/26/2019 1:31 PM CDT [facility] pH UA 5.0 5.0 - 8.0 pH 04/26/2019 1:31 PM T [facility] Protein UA 2+(A) Negative mg/dL 04/26/2019 1:31 PM T [facility] Glucose UA 1+(A) Negative mg/dL 04/26/2019 1:31 PM CDT [facility] Ketone UA Negative Negative mg/dL 04/26/2019 1:31 PM T [facility] Bilirubin UA Negative Negative mg/dL 04/26/2019 1:31 PM CDT [facility] Blood UA Negative Negative 04/26/2019 1:31 PM T [facility] Nitrite UA Negative Negative 04/26/2019 1:31 PM T [facility] Leukocyte Esterase Negative Negative 04/26/2019 1:31 PM T [facility] Urobilinogen UA Negative Negative mg/dL 04/26/2019 1:31 PM T [facility] RBC UA 0-2 None Seen, 0-2, 3-5 /HPF 04/26/2019 1:31 PM T [facility] WBC UA 0-5 None Seen, 0-5 /HPF 04/26/2019 1:31 PM T [facility] Squamous Epithelial Cells UA 0-2 None Seen, 0-2 /HPF 04/26/2019 1:31 PM T [facility] Mucus UA 1+ None, 1+ /LPF 04/26/2019 1:31 PM T [facility] Hyaline Casts UA 11-20(A) None Seen, 0-2 /LPF 04/26/2019 1:31 PM CDT [facility] Urine URINE SPECIMEN OBTAINED BY CLEAN CATCH PROCEDURE / Unknown Collection / Unknown 04/26/2019 12:42 PM CDT 04/26/2019 1:18 PM CDT Narrative [facility] - 04/26/2019 1:31 PM CDT Judah Norton MD LAB - URINALYSIS ORD ERABLES Performing Organization Address City/State/[facility] Co de Phone Number [facility] [address] [place] [address] * (ABNORMAL) ERYTHROCYTE SEDIMENTATION RATE (04/26/2019 12:42 PM CDT) Erythrocyte Sedimentation Rate Westergren 34(H) 0 - 20 MM/HR 04/26/2019 1:31 PM CDT [facility] Blood BLOOD SPECIMEN / Unknown Lab Venipuncture / Unknown 04/26/2019 12:42 PM CDT 04/26/2019 1:19 PM CDT Judah Norton MD LAB - HEMATOLOGY ORD ERABLES [facility] [address] [place] [address] * C-REACTIVE PROTEIN (04/26/2019 12:42 PM CDT) [facility] C-Reactive Protein <0.5 <=0.5 mg/dL 04/26/2019 2:21 PM T [facility] Blood BLOOD SPECIMEN / Unknown Lab Venipuncture / Unknown 04/26/2019 12:42 PM CDT 04/26/2019 1:19 PM CDT Judah Norton MD LAB - CHEMISTRY SUSANNAH LEONE [address] [phone] * (ABNORMAL) COMPREHENSIVE METABOLIC PANEL (04/26/2019 12:42 PM CDT) [facility] BUN 72(H) 7 - 26 mg/dL 04/26/2019 1:43 PM [facility] Creatinine 4.9(H) 0.6 - 1.2 mg/dL 04/26/2019 1:43 PM [facility] Sodium 138 136 - 145 mmol/L 04/26/2019 1:43 PM [facility] Potassium 4.1 3.5 - 4.5 mmol/L 04/26/2019 1:43 PM [facility] Chloride 101 98 - 107 mmol/L 04/26/2019 1:43 PM [facility] CO2 22 22 - 29 mmol/L 04/26/2019 1:43 PM [facility] Glucose 227(H) 70 - 115 mg/dL 04/26/2019 1:43 PM [facility] Calcium 9.2 8.4 - 10.2 mg/dL 04/26/2019 1:43 PM [facility] Protein Total 6.9 6.0 - 8.3 g/dL 04/26/2019 1:43 PM [facility] Albumin 3.6 3.4 - 5.0 g/dL 04/26/2019 1:43 PM [facility] Bilirubin Total 0.4 0.2 - 1.2 mg/dL 04/26/2019 1:43 PM [facility] Alkaline Phosphatase 83 40 - 150 Units/L 04/26/2019 1:43 PM [facility] ALT 32 0 - 55 Units/L 04/26/2019 1:43 PM [facility] AST 30 5 - 34 Units/L 04/26/2019 1:43 PM [facility] Anion Gap 19(H) 8 - 18 04/26/2019 1:43 PM [facility] BUN/Creatinine Ratio 15 7 - 23 04/26/2019 1:43 PM [facility] Osmolality Calculated 314(H) 270 - 300 mOsm/kg 04/26/2019 1:43 PM [facility] Albumin/Globulin Ratio 1.1 1.1 - 2.3 04/26/2019 1:43 PM [facility] eGFR 13(L) >60 mL/min/1.7 3 m2 04/26/2019 1:43 PM [facility] Blood BLOOD SPECIMEN / Unknown Lab Venipuncture / Unknown 04/26/2019 12:42 PM CDT 04/26/2019 1:19 PM T Judah Norton MD LAB - CHEMISTRY SUSANNAH LEONE [facility] Organization Address City/State/ZIP Co de Phone Number [address] [phone] * (ABNORMAL) CBC WITH DIFFERENTIAL (04/26/2019 12:42 PM CDT) WBC 4.9 3.5 - 10.5 10? 3 /uL 04/26/2019 1:22 PM [facility] RBC 3.40(L) 4.30 - 5.70 10? 6 /uL 04/26/2019 1:22 PM [facility] Hemoglobin 10.0(L) 13.5 - 17.5 g/dL 04/26/2019 1:22 PM [facility] Hematocrit 29.5(L) 39.0 - 50.0 % 04/26/2019 1:22 PM [facility] MCV 86.8 81.0 - 97.0 fL 04/26/2019 1:22 PM [facility] MCH 29.4 28.0 - 34.0 pg 04/26/2019 1:22 PM [facility] MCHC 33.9 32.0 - 36.0 g/dL 04/26/2019 1:22 PM [facility] Platelet Count 243 150 - 400 10? 3 /uL 04/26/2019 1:22 PM [facility] RDW-SD 39.9 36.0 - 50.0 fL 04/26/2019 1:22 PM [facility] RDW-CV 12.5 11.2 - 14.8 % 04/26/2019 1:22 PM [facility] MPV 9.7 9.3 - 12.8 fL 04/26/2019 1:22 PM [facility] nRBC Absolute 0.00 0 10? 3 /uL 04/26/2019 1:22 PM [facility] nRBC Auto 0.0 0 /100 WBC 04/26/2019 1:22 PM [facility] Neutrophils % 57.8 35.0 - 70.0 % 04/26/2019 1:22 PM [facility] Lymphocytes % 27.1 19.7 - 55.1 % 04/26/2019 1:22 PM [facility] Monocytes % 11.2 3.0 - 15.0 % 04/26/2019 1:22 PM [facility] Eosinophils % 2.9 0.0 - 6.0 % 04/26/2019 1:22 PM [facility] Basophil % 0.6 0.0 - 1.5 % 04/26/2019 1:22 PM [facility] Neutrophils Absolute 2.8 1.6 - 7.0 10? 3 /uL 04/26/2019 1:22 PM [facility] Lymphocyte Absolute 1.3 0.8 - 2.9 10? 3 /uL 04/26/2019 1:22 PM [facility] Monocytes Absolute 0.55 0.14 - 0.66 10? 3 /uL 04/26/2019 1:22 PM [facility] Eosinophils Absolute 0.14 0.00 - 0.45 10? 3 /uL 04/26/2019 1:22 PM CDT [facility] Basophils Absolute 0.03 0.00 - 0.06 10? 3 /uL 04/26/2019 1:22 PM CDT [facility] Immature Granulocytes % 0.4 0.0 - 1.0 % 04/26/2019 1:22 PM CDT [facility] Blood BLOOD SPECIMEN / Unknown Lab Venipuncture / Unknown 04/26/2019 12:42 PM CDT 04/26/2019 1:19 PM CDT Judah Norton MD LAB - HEMATOLOGY ORD ERASANDRA [address] [phone] * (ABNORMAL) CK BLOOD (04/26/2019 12:42 PM CDT) CK Total 280(H) 30 - 200 Units/L 04/26/2019 1:43 PM CDT [facility] Blood BLOOD SPECIMEN / Unknown Lab Venipuncture / Unknown 04/26/2019 12:42 PM CDT 04/26/2019 1:19 PM CDT Judah Norton MD LAB - CHEMISTRY SUSANNAH LEONE [address] [phone] * (ABNORMAL) LDH BLOOD (04/26/2019 12:42 PM CDT) LDH Total 268(H) 125 - 243 Units/L 04/26/2019 1:43 PM CDT [facility] Blood BLOOD SPECIMEN / Unknown Lab Venipuncture / Unknown 04/26/2019 12:42 PM CDT 04/26/2019 1:19 PM CDT Judah Norton MD LAB - CHEMISTRY SUSANNAH LEONE [address] [phone] * ALDOLASE (04/26/2019 12:42 PM CDT) Aldolase 6.9 3.3 - 10.3 U/L 04/29/2019 3:08 PM CDT [facility] ([facility]) Blood BLOOD SPECIMEN / Unknown Lab Venipuncture / Unknown 04/26/2019 12:42 PM CDT 04/26/2019 1:18 PM CDT Narrative [facility] ([facility]) - 04/29/2019 3:08 PM CDT Performed at: ??01 - [facility] [address] [place], [place] ??[id number] Parks Recreation Director: Mehdi Del Angel PhD, Phone: ??[phone] Judah Norotn MD LAB - CHEMISTRY SUSANNAH LEONE Performing Organization Address City/[facility]/ZIP Co de Phone Number [facility] [address] [place] [address] * URIC ACID BLOOD (04/26/2019 12:42 PM CDT) Uric Acid 4.4 2.6 - 7.2 mg/dL 04/26/2019 2:13 PM CDT [facility] Blood BLOOD SPECIMEN / Unknown Lab Venipuncture / Unknown 04/26/2019 12:42 PM CDT 04/26/2019 1:19 PM CDT Judah Norton MD LAB - CHEMISTRY SUSANNAH LEONE [facility] [address] [phone] documented in this encounter Visit Diagnoses Diagnosis Gout, unspecified cause, unspecified chronicity, unspecified site Sicca, unspecified type (HCC) documented in this encounter Care Teams Inspector Screen Printing Relationship Specialty Start Date End Date Aditya Castro Update Information PCP - General 03/06/19 documented as of this encounter
--- OUTSIDE RECORDS SUMMARY | 2024-08-18 13:01 | XMS_ITS | Encounter Summary ---
Author Organization [facility] Address [address] [facility] [place] [address] Care Team Providers Care Metallurgical Lab Technician Name Role Phone Jhonatan Bellamy MD Primary Care Provider [phone] Encounter Details Date Type Department Care Team (Latest Contact Info) Description 03/25/2015 5:00 PM CDT - 03/25/2015 11:59 PM CDT Hospital Encounter [facility] [address] [place] [address] Yamilet Valerio PA [address] [place] [address] Discharge Disposition: Home or Self Care Social History Tobacco Use Types Packs/Day Years Used Date Smoking Tobacco: Never Assessed Sex and Gender Information Value Date Recorded Sex Assigned at Not on file Gender Identity Not on file Sexual Orientation Not on file documented as of this encounter Plan of Treatment Not on file documented as of this encounter Procedures Procedure Name Priority Date/Time Associated Diagnosis Comments XR HAND BILAT 2VW Routine 03/25/2015 5:3 1 PM CDT Arthropathy, unspecified, site unspecified XR FOOT BILAT 2VW Routine 03/25/2015 5:3 1 PM CDT Arthropathy, unspecified, site unspecified XR SI JOINTS 2VW OR LESS Routine 03/25/2015 5:31 PM CDT Arthropathy, unspecified, site unspecified XR LUMBAR SPINE 2 OR 3VW Routine 03/25/2015 5:31 PM CDT Arthropathy, unspecified, site unspecified XR CERVICAL SPINE 2 OR 3VW Routine 03/25/2015 5:31 PM CDT Arthropathy, unspecified, site unspecified documented in this encounter Results * XR CERVICAL SPINE 2 OR 3 [...] Region Laterality Modality Pelvis, Lower Extremity [facility] 03/25/2015 8:09 PM CDT Impressions [...] Mild degenerative changes of both sacroiliac joints. Yamilte [facility] ORDERABLES * XR [...] [facility] ORDERABLES * XR HANDS BILATERAL 2 VIEWS (03/25/2015 [...] joints. Yamilet [facility] ORDERABLES documented in this encounter Visit Diagnoses Diagnosis Arthropathy, unspecified, site unspecified documented in this encounter Care Teams Metallurgical Lab Technician Relationship Specialty Start Date End Date Jhonatan Bellamy MD [address] [place], [place] [id number] PCP - General Family Medicine 03/25/15 03/05/19 documented as of this encounter
--- OUTSIDE RECORDS SUMMARY | 2024-08-18 13:01 | XMS_ITS | Encounter Summary ---
Author Organization [facility] Address [address] [place] [address] Care Team Providers Care Modular Set Crew Member Name Role Phone Aditya Castro Primary Care Provider Unavailab le Reason for Visit * Reason Comments Establish Care Arthritis and Gout Encounter Details Date Type Department Care Team (Latest Contact Info) Description 03/07/2019 8:30 AM CDT Office Visit [facility] Rheumatology [address] [place] [address] Carlton Delarosa MD [address] [place] [address] Gout, unspecified cause, unspecified chronicity, unspecified site (Primary Dx); Sicca, unspecified type (HCC); Osteoarthritis, unspecified osteoarthritis type, unspecified site Social History Tobacco Use Types Packs/Day Years [...] Sign Reading Time Taken Comments Blood Pressure 138/60 03/07/2019 8:42 AM CDT Pulse 68 03/07/2019 8:42 AM CDT Temperature 36.7 ??C (98.1 ??F) 03/07/2019 8:42 AM CD T Respiratory Rate - - Oxygen Saturation - - Inhaled Oxygen Concentration - - Weight 117 kg (258 lb) 03/07/2019 8:42 AM CDT Height 175.3 cm (5' 9 ) 03/07/2019 8:42 AM CDT Body Mass Index 38.1 03/07/2019 8:42 AM CDT documented in this encounter Patient Instructions * Patient Instructions* Judah Norton MD - 03/07/2019 10:06 AM CDT Please get labs and imaging today Please got to quest after 24 hour urine collection for labs If you need to change or cancel your Rheumatology appointment - At the Doctor's Office Building at [address], [address], call [phone] If you need a refill request, have your pharmacy fax a request to [phone] If you need to leave a message for Dr. Norton, you can send her an electronic message via [email or web address] a voicemail at [phone]. Her office FAX number is [phone]. For after hours emergency only, you can call the [facility] smokehouse operator at [phone] and ask for the Health Occupations Instructor medicaid collection specialist to be paged. documented in this encounter Progress Notes * Carlton Delarosa MD - 03/07/2019 11:09 AM CDT (Prob #1) Gout (Prob #2) Multiple Co-morbidities (Diabetes/HBP/Lipidemia/CKD Stage IV) (Subj) Patient referred for for a history of gouty arthritis presently on Uloric 40 mg/d and 0.6 mgcolchicine qod + other meds. History of diffuse arthralgias of great toe, elbow, and PIPs and intermittent swelling, worse 3rd PIP R hand; Pain worse with activity. Also, low back pain Mild sicca complaints. Denies other symptoms of CTD. Past/Social/Family History as documented in Dr. Norton's note. (Obj) BP 138/60 (BP SITE: RIGHT ARM, BP POSITION: SITTING, BP CUFF SIZE: 12) Pulse 68 Temp 98.1 ??F(36.7 ??C) (Oral) Ht 5' 9 (1.753 m) Wt 258 lb (117 kg) BMI 38.1 kg/m2 (Skin) Dry scaly lesions face. No other rashes. (HEENT) No cartilage tenderness. No mucosal ulcers. Moist membranes. (Neck) No adeniopathy/thyromegaly; (Back) Mild trap/paravertebral tenderness and marked LS/SI tenderness (General) Obese; otherwise, unremarkable (Extrem) 3rd PIP R S0T1; Hips/knees T1S0; No lissa synovitis. MS= bilat (Assess) Gout By History, needs further evaluation (Plan) Continue same meds with labs and Xrays as below. Collect 24 hour urine for CrCl/Tot Prot/Uric Acid. RTO in 6 weeks. Advise further then on therapy and etiology. I observed,examined, and discussed with / Cierra I confirm her findings and note. Carlton Delarosa MD, FACP, FAAP, MACR Adult Probation Officer and Pediatric Rheumatology Professor of Internal Medicine,Pediatrics, and Molecular Immunology [facility] documented in this encounter Consult Notes * Judah Norton MD - 03/07/2019 8:49 AM CDT [facility] Rheumatology Consult H&P PCP: Aditya Castro HPI: 48 year old male with DM, HTN ,HLD , CKD stage IV, and other co morbidities who is seen in clinic today as a referral for gout and arthritis. Patient was previously evaluated by rheumatology at [facility] and was told he had gout and underlying arthritis. Patient insurance changed and force to switch providers. Patient was diagnosed with gout in 2016 after presenting with symptoms of sore joints in hand, fingers, knees, lower back , neck shoulder and hips. Patient was evaluated in the hospital in January for inability to move right arm and was diagnosed with gout. He does not recall aspiration during hospitalization. Patient was started on allopurinol for about one month and developed worsening real function . The allopurinol was discontinued and colchicine uloric combination started. Patient has since been on this regimen and it has been helpful. Medication is prescribed as colchicine 0.6 mg MWF and uloric 40 mg daily. Patient with brief prednisone use during a time period in which patient was unable to get gout medications. Patient with unintentional drug holiday due to insurance (2.5 month) issues and noticed gout flares. Unfortunately patient can only get a certain number pills (36 for a 90 day supply) so he is taking 0.3 mg daily. Of note, patient mentions swelling in the PIP, aspiration was attempted but unsuccessful . Patient did receive steroid injection in this area without favorableresponse. Gout flares have occurred in great toe, elbow and fingers. Flares occur seldomly as patient followsa gout diet and takes medications as listed above. He later mentions a time period in which he increased consumption of red meat and developed about 7 attacks. Joint pain is located in hands, elbows, shoulders, hips, knees , ankles, feet, cervical spine and lumbar spine. Joint pain started around 2015 and progressed requiring hospitalization in January 2017. Hand pain is located in MCP, PIP , and DIP joints. Pain is described as a pressure like sensation. Pain is associated with bilateral 3rd digit PIP swelling and warmth. Patient with trouble performing ADL's including gripping object. Pain is elbows described as tingling /bruise like sensation. Elbow pain is not associated with swelling, erythema or warmth. Pain in shoulders is a tired sensation thatis worse with lifting or movement. Pain is associated with swelling and warmth. Hip pain is locatedin the groin and along the lateral aspect of joint and is described as a sharp stabbing sensation .Pain is exacerbated with sitting, standing or laying down. Pain is associated with swelling , no erythema or warmth. Knee pain is located in the entire knee and is a sharp stabbing sensation. Pain isworse with climbing stairs and is associated with swelling , warmth. No erythema. Ankle pain feels like a sprain and pops after prolonged sitting. Swelling without erythema or warmth. Pain in foot isin the MTP's and is described as a sharp and soreness sensation . He endorse swelling and warmth. No erythema. Cervical pain is a sore muscle feeling with a stabbing sensation. Movement of the cervical spine makes pain better. Pain in lumbar spine is described as a excruciating , sore , sharp pain that is worse with prolonged standing. Leaning forward makes pain better. Pain is not better or worse with activity. Endorse buttock pain. ROS: General: Weight Loss [] Yes [x] No Fever [] Yes [x] No Fatigue/Malaise [x] Yes [] No Anorexia [x] Yes [] No Dermatologic: Rashes [x] Yes [] No Nail Changes [] Yes [x] No Raynaud???s [] Yes [x] No Splinter Hemorrhages [] Yes [x] No Photosensitivity [] Yes [x] No Psoriasis [] Yes [x] No Alopecia [] Yes [x] No HEENT: Inflammation [] Yes [x] No Parotid Swelling [] Yes [] No Photophobia [x] Yes [] No Adenopathy [] Yes [] No Dry eyes [x] Yes [] No Jaw Pain [x] Yes [] No Dry Mouth [x] Yes [] No Episcopalian Pain [x] Yes [] No Oral Ulcers [] Yes [x] No Neck Pain [x] Yes [] No Nasal Ulcers [] Yes [x] No Epistaxis [] Yes [x] No Cardiopulmonary: Pleuritic Pain [x] Yes [] No Cough [] Yes [x] No Swelling [x] Yes [] No Orthopnea [x] Yes [] No Costochondral Pain [] Yes [x] No HTN [x] Yes [] No Dyspnea [x] Yes [] No Heart Disease [x] Yes [] No Gastrointestinal: Dysphagia [x] Yes [] No N/V [x] Yes [] No Reflux [x] Yes [] No Diarrhea [] Yes [x] No Ulcer [] Yes [x] No Constipation [] Yes [x] No Pain [] Yes [x] No Blood in stool [] Yes [] No : Discharge [] Yes [] No Miscarriages [] Yes [] No Vaginal Ulcers [] Yes [] No BCP [] Yes [] No Dysuria [] Yes [x] No Hematuria [] Yes [x] No Urinary Tract Infections [] Yes [x] No DVT,Thrombophlebitis [x] Yes [] No Neurologic: Numbness/Tingling [x] Yes [] No Hearing Changes [] Yes [x] No Mental Status Changes [] Yes [x] No Visual Changes [] Yes [x] No Behavioral Changes [] Yes [x] No Seizures [x] Yes [] No Headache [x] Yes [] No Hematologic: Transfusions [x] Yes [] No Tattoos [] Yes [] No IVDU [] Yes [x] No Immunological/Allergic: Sinusitis [] Yes [x] No Atopy [] Yes [] No Angioedema [] Yes [] No Urticaria [] Yes [] No Recurrent infections [] Yes [x] No Endocrine: Thyroid [] Yes [x] No Diabetes [x] Yes [] No Musculoskeletal: Morning Stiffness [x] Yes [x] No Decreased ROM [x] Yes [] No Joint Pain [x] Yes [] No Back Pain [x] Yes [] No Joint Swelling [x] Yes [] No Heel Pain [x] Yes [] No Joint Warmth [x] Yes [] No Muscle Weakness [x] Yes [] No Joint Redness [] Yes [x] No Myalgias [x] Yes [] No Past Medical History: Past Medical History: Diagnosis Date ??? CAD (coronary artery disease) ??? DM (diabetes mellitus) TYPE 1 ??? DVT (deep venous thrombosis) ??? Gout ??? HLD (hyperlipidemia) ??? HTN (hypertension) ??? Neuropathy Social History: Social History Substance Use Topics ??? Smoking status: Never Smoker ??? Smokeless tobacco: Never Used ??? Alcohol use No Family History: Review of No family history on file. No family history of IBD, psoriasis, SLE, or Rheumatoid Arthritis orType 1 DM Gout- none Current Medications: Current Outpatient Prescriptions Medication Sig Dispense Refill ??? aspirin (ASPIRIN) 81 MG chew tablet Take 1 tablet by mouth once daily ??? atorvastatin (LIPITOR) 20 MG tablet ??? atorvastatin (LIPITOR) 40 MG tablet ??? calcitriol (ROCALTROL) 0.25 MCG capsule Take [...] mouth every 12 hours as needed ??? febuxostat (ULORIC) 40 MG tablet Take 40 mg by mouth ??? ferrous sulfate EC (FERROUS SULFATE) 324 (65 Fe) MG tablet Take 324 mg by mouth once daily ??? furosemide (LASIX) 40 MG tablet Take 40 mg by mouth 2 times daily ??? gemfibrozil (LOPID) 600 MG tablet Take 600 mg by mouth 2 times daily,before breakfast and supper ??? hydrALAZINE (APRESOLINE) 100 MG tablet Take 100 mg by mouth 3 times daily ??? insulin glargine (LANTUS) pen Inject 30 Units subcutaneously at bedtime (Patient not taking: Reported on 03/07/2019) ??? isosorbide mononitrate CR 24hr (IMDUR) 30 MG tablet Take 30 mg by mouth once daily ??? isosorbide mononitrate CR 24hr (IMDUR) 60 MG tablet Take 60 mg by mouth once daily ??? Lidocaine 2% gel Urethral/Mucosal (XYLOCAINE) 2 % ??? nitroGLYCERIN (NITROSTAT) 0.4 MG tablet Dissolve 0.4 mg under the tongue as needed for Angina ??? raNITIdine (ZANTAC) 300 MG tablet Take 300 mg by mouth 2 times daily ??? ranolazine ER 12hr (RANEXA) 500 MG tablet ??? terazosin (HYTRIN) 2 MG capsule Take 2 mg by mouth once daily ??? traMADol (ULTRAM) 50 MG tablet Take 50 mg by mouth every 8 hours as needed ??? vitamin D, ergocalciferol, (DRISDOL) 24250 units capsule Take 50,000 Units by mouth every 7 days No current facility-administered medications for this visit. Allergies: Iv contrast [contrast-iodinated agents for ct/other]; Allopurinol; and Ticagrelor Physical Exam: BP 138/60 (BP SITE: RIGHT ARM, BP POSITION: SITTING, BP CUFF SIZE: 12) Pulse 68 Temp 98.1 ??F (36.7??C) (Oral) Ht 5' 9 (1.753 m) Wt 258 lb (117 kg) BMI 38.1 kg/m2 General: normal, appears stated age, obese Skin: Skin color, texture, turgor normal. Dry scaly skin face and hair otherwise no rashes or lesions HEENT: Normocephalic, without obvious abnormality, atraumatic conjunctivae/corneas clear, EOMI, no oral or nasal ulcers, moist mucus membranes, supple neck, nailbeds normal no pitting Lymphatic: No cervical or supraclavicular adenopathy Back: symmetric, no curvature, +trapezius and paraspinal tenderness Chest/Lungs: clear to auscultation bilaterally, normal respiratory effort Heart: RRR, normal S1 and S2, no murmur, + LE edema Abdomen: soft, non-tender. Bowel sounds normal Neurologic: Grossly normal cranial nerves, 5/5 strength Musculoskeletal Exam: Full but painful ROM Bilaterally third PIP S0T2 Bilateral Hip T1 Bilateral knees S0T1 SI tenderness JAM positive Labs: Reviewed, including those as noted below 09/08/2017 Uric acid 7.9 04/2017 Uric acid 12.9 03/26/2015 ESR 16, CRP 19.4 Uric acid 12.3 NICOLÁS 8 RF and CCP negative C4 78, C3 140 SHAWN, Chiu, TYPEWRITER ASSEMBLY AND PARTS INSPECTOR, dsDNA, SSA, SSB negative Trinidad-1 negative HLA-B27 negative LAC , B2G and Cardiolipin negative 02/03/2015 Uric acid 11.3 Diagnostics: Xray of elbow 05/2016 No acute fracture of the left elbow. Diffuse soft tissue swelling over the olecranon may represent olecranon bursitis. Xray of bilateral foot 03/22/2017 Bilateral mid foot erosive arthropathy with dorsal fragmentation. These findings can be seen in thesetting of inflammatory arthropathy such as rheumatoid are reactive arthritis. This distribution would be atypical for crystalline arthropathy. Neuropathic arthropathy is also considered. Xray of bilateral hand 03/22/2017 Periarticular erosions in both hands, left greater than right, with associated soft tissue swelling. The primary differential consideration would be an inflammatory or crystalline arthropathy. Rheumatology consult with appropriate laboratory workup is recommended. Xray of right shoulder 03/21/2017 Interval development of distal osteolysis of the right clavicle which may be secondary to gout or less likely post-traumatic changes. Osteoarthritic changes of the acromioclavicular joint. Further evaluation such as arthrocentesis may be helpful. Assessment: Juvenal Daigle is a 48 year old man with previously diagnosed gout and OA who presents to clinic for a gout consultation. Patient with complaints of diffuse arthralgias, three to four hours of AM stiffness, fatigue and SICCA complaints. Family hx negative for autoimmune disease. PE with SI tenderness , JAM positive and joint tenderness without synovitis. Previous labs with negative HLAB27. Previous x-rays suggestive of crystal arthropathy. Overall patient hx does seem to be consistent with gout, however lumbar pain and physical exam findings are concerning for spondylarthritis. Would like to obtain labs and imaging to further investigate . Lumbago could be due to DDD vs spinal stenosis aspain improve with leaning forward. Imaging would be helpful at this time. Recommendations: 1. Labs: see below 2. Radiology: x-rays of hands, feet and SI joints 3. Medications: continue previously prescribed colchicine and uloric 4. Other: RTC in 6-8 weeks Patient seen and examined with attending, Dr. Washington Norton MD Rheumatology Fellow Orders Placed This Encounter ??? XR LUMBAR SPINE 4VW OR MORE Standing Status: Future Standing Expiration Date: 03/07/2020 Order Specific Question: Reason for Exam Answer: 48 yo with S tenderness and positive JAM ??? XR SI JOINTS 3VW OR MORE Standing Status: Future Standing Expiration Date: 03/07/2020 Order Specific Question: Reason for Exam Answer: 48 yo with S tenderness and positive JAM ??? XR HAND LEFT 3VW OR MORE Standing Status: Future Standing Expiration Date: 03/07/2020 Order Specific Question: Reason for Exam Answer: 48 yo with gout and diffuse arthralgia ??? XR HAND RIGHT 3VW OR MORE Standing Status: Future Standing Expiration Date: 03/07/2020 Order Specific Question: Reason for Exam Answer: 48 yo with gout and diffuse arthralgia ??? XR FOOT LEFT 3VW OR MORE Standing Status: Future Standing Expiration Date: 03/07/2020 Order Specific Question: Reason for Exam Answer: 48 yo with gout and diffuse arthralgia ??? XR FOOT RIGHT 3VW OR MORE Standing Status: Future Standing Expiration Date: 03/07/2020 Order Specific Question: Reason for Exam Answer: 48 yo with gout and diffuse arthralgia ??? URIC ACID BLOOD Standing Status: Future Standing Expiration Date: 03/31/2020 ??? ALDOLASE Standing Status: Future Standing Expiration Date: 03/31/2020 ??? LDH BLOOD Standing Status: Future Standing Expiration Date: 03/31/2020 ??? CK BLOOD Standing Status: Future Standing Expiration Date: 03/31/2020 ??? CBC WITH DIFFERENTIAL Standing Status: Future Standing Expiration Date: 03/31/2020 ??? COMPREHENSIVE METABOLIC PANEL Standing Status: Future Standing Expiration Date: 03/31/2020 ??? C-REACTIVE PROTEIN Standing Status: Future Standing Expiration Date: 03/31/2020 ??? ERYTHROCYTE SEDIMENTATION RATE Standing Status: Future Standing Expiration Date: 03/31/2020 ??? URINALYSIS W/MICROSCOPIC NO CULTURE Standing Status: Future Standing Expiration Date: 03/31/2020 ??? VITAMIN D 25-HYDROXY Standing Status: Future Standing Expiration Date: 03/31/2020 ??? SHAWN BLOOD SCREEN W/REFLEX TITER Standing Status: Future Standing Expiration Date: 03/31/2020 ??? SS-A (SJOGREN'S) ANTIBODY Standing Status: Future Standing Expiration Date: 03/31/2020 ??? SS-B (SJOGREN'S) ANTIBODY Standing Status: Future Standing Expiration Date: 03/31/2020 ??? RHEUMATOID FACTOR BLOOD QUANTITATIVE Standing Status: Future Standing Expiration Date: 03/31/2020 ??? CYCLIC CITRUL PEPTIDE ANTIBODY IGG/IGA (CCP) Standing Status: Future Standing Expiration Date: 03/31/2020 ??? URIC ACID URINE TIMED 24 hour urine collection Standing Status: Future Standing Expiration Date: 03/01/2020 ??? CREATININE CLEARANCE URINE TIMED + BLOOD Standing Status: Future Standing Expiration Date: 03/01/2020 Order Specific Question: What is height of patient? (inches) Answer: 81 Order Specific Question: What is weight(Ibs) of patient? (pounds) Answer: 258 ??? URIC ACID BLOOD Standing Status: Future Standing Expiration Date: 03/31/2020 documented in this encounter Plan of Treatment Not on file documented as of this encounter Results * XR FOOT RIGHT [...] Region Laterality Modality Pelvis, Lower Extremity [facility] Imaging 04/26/2019 1:20 PM CDT Impressions [...] Norton MD DIAGNOSTIC IMAGING O RDERABLES * CYCLIC CITRUL PEPTIDE ANTIBODY IGG/IGA (CCP) (04/26/2019 12:42 PM CDT) CCP Antibodies IgG/IgA 17 0 - 19 units 04/29/2019 9:06 PM CDT [facility] ([facility]) Comment: ?Negative ? <20 ?Weak positive ?20 - 39 ?Moderate positive ??40 - 59 ?Strong positive ?>59 Blood BLOOD SPECIMEN / Unknown Lab Venipuncture / Unknown 04/26/2019 12:42 PM CDT 04/26/2019 1:18 PM CDT Narrative [facility] ([facility]) - 04/29/2019 9:06 PM CDT Performed at: ??01 - [address] ??[id number] Web Feeder: Con Grimaldo MD, Phone: ??[phone] Judah Norton MD LAB - SEROLOGY ORDER [facility] ([facility]) [address] [place] [address] * RHEUMATOID FACTOR BLOOD QUANTITATIVE (04/26/2019 12:42 PM CDT) Rheumatoid Factor <15 <30 IU/mL 04/26/2019 2:34 PM CDT [facility] Blood BLOOD SPECIMEN / Unknown Lab Venipuncture / Unknown 04/26/2019 12:42 PM CDT 04/26/2019 1:18 PM CDT Judah Norton MD LAB - CHEMISTRY SUSANNAH LEONE Performing Organization Address City/[facility]/ZIP Co de Phone Number [address] [phone] * SS-B (SJOGREN'S) ANTIBODY (04/26/2019 12:42 PM CDT) SS-B LA Antibody 2.8 0.0 - 19.9 Units 04/30/2019 9:45 AM CDT [facility] Comment: JOSE ENRIQUE Antibody Numeric Result Interpretation: ?<20.0 Units: ??Negative ?20.0 - 39.0 Units: ??Weakly Positive ?>39.0 Units: ??Positive ? Blood BLOOD SPECIMEN / Unknown Lab Venipuncture / Unknown 04/26/2019 12:42 PM CDT 04/26/2019 1:19 PM CDT Judah Norton MD LAB - CHEMISTRY [facility]USANNA[facility] LEONE [address] [phone] * SS-A (SJOGREN'S) ANTIBODY (04/26/2019 12:42 PM CDT) SS-A (Ro) Antibody 2.7 0.0 - 19.9 Units 04/30/2019 9:45 AM CDT [facility] Comment: JOSE ENRIQUE Antibody Numeric Result Interpretation: ?<20.0 Units: ??Negative ?20.0 - 39.0 Units: ??Weakly Positive ?>39.0 Units: ??Positive ? Blood BLOOD SPECIMEN / Unknown Lab Venipuncture / Unknown 04/26/2019 12:42 PM CDT 04/26/2019 1:19 PM CDT Judah Norton MD LAB - CHEMISTRY SUSANNAH LEONE Performing Organization Address [facility] de Phone Number [address] [phone] * SHAWN BLOOD SCREEN W/REFLEX TITER (04/26/2019 12:42 PM CDT) SHAWN Negative 04/27/2019 3:07 PM CDT [facility] ([facility]) Comment: ? Negative ?? <1:80 ? Borderline ??1:80 ? Positive ?? >1:80 Blood BLOOD SPECIMEN / Unknown Lab Venipuncture / Unknown 04/26/2019 12:42 PM CDT 04/26/2019 1:18 PM CDT Narrative [facility] ([facility]) - 04/27/2019 3:07 PM CDT Performed at: ??01 - [facility] [address], [place], [place] ??[id number] Web Feeder: Mehdi Del Angel PhD, Phone: ??[phone] Judah Norton MD LAB - CHEMISTRY SUSANNAH LEONE Performing Organization Address [facility] Co de Phone Number [facility] ([facility]) [address] [place] [address] * (ABNORMAL) VITAMIN D 25-HYDROXY (04/26/2019 12:42 PM CDT) [facility] Signature Vitamin D, 25 Hydroxy 15.1(L) See comment: ng/mL 04/26/2019 2:25 PM CDT [facility] Comment: The recommendations for 25-Hydroxy [...] Norton MD LAB - CHEMISTRY SUSANNAH LEONE [facility] [address] [phone] * (ABNORMAL) URINALYSIS W/MICROSCOPIC NO CULTURE (04/26/2019 12:42 PM [facility]) Color UA Yellow Straw, Yellow, Colorless 04/26/2019 1:31 PM [facility] Clarity UA Slt Cloudy Clear, Slt Cloudy 04/26/2019 1:31 PM [facility] Specific Malott UA 1.013 1.005 - 1.030 04/26/2019 1:31 PM [facility] pH UA 5.0 5.0 - 8.0 pH 04/26/2019 1:31 PM [facility] Protein UA 2+(A) Negative mg/dL 04/26/2019 1:31 PM [facility] Glucose UA 1+(A) Negative mg/dL 04/26/2019 1:31 PM [facility] Ketone UA Negative Negative mg/dL 04/26/2019 1:31 PM [facility] Bilirubin UA Negative Negative mg/dL 04/26/2019 1:31 PM [facility] Blood UA Negative Negative 04/26/2019 1:31 PM [facility] Nitrite UA Negative Negative 04/26/2019 1:31 PM [facility] Leukocyte Esterase Negative Negative 04/26/2019 1:31 PM [facility] Urobilinogen UA Negative Negative mg/dL 04/26/2019 1:31 PM [facility] RBC UA 0-2 None Seen, 0-2, 3-5 /HPF 04/26/2019 1:31 PM [facility] WBC UA 0-5 None Seen, 0-5 /HPF 04/26/2019 1:31 PM [facility] Squamous Epithelial Cells UA 0-2 None Seen, 0-2 /HPF 04/26/2019 1:31 PM [facility] Mucus UA 1+ None, 1+ /LPF 04/26/2019 1:31 PM [facility] Hyaline Casts UA 11-20(A) None Seen, 0-2 /LPF 04/26/2019 1:31 PM [facility] Urine URINE SPECIMEN OBTAINED BY CLEAN CATCH PROCEDURE / Unknown Collection / Unknown 04/26/2019 12:42 PM CDT 04/26/2019 1:18 PM CDT Narrative [facility] - 04/26/2019 1:31 PM CDT Judah Norton MD LAB - URINALYSIS ORD ERABLES Performing Organization Address [facility]/ZIP Co de Phone Number [address] [phone] * (ABNORMAL) ERYTHROCYTE SEDIMENTATION RATE (04/26/2019 12:42 PM CDT) Erythrocyte Sedimentation Rate Westergren 34(H) 0 - 20 MM/HR 04/26/2019 1:31 PM CDT [facility] Blood BLOOD SPECIMEN / Unknown Lab Venipuncture / Unknown 04/26/2019 12:42 PM CDT 04/26/2019 1:19 PM CDT Judah Norton MD LAB - HEMATOLOGY ORD ERABLES Performing Organization Address [facility]/ZIP Co de Phone Number [address] [phone] * C-REACTIVE PROTEIN (04/26/2019 12:42 PM CDT) C-Reactive Protein <0.5 <=0.5 mg/dL 04/26/2019 2:21 PM CDT [facility] Blood BLOOD SPECIMEN / Unknown Lab Venipuncture / Unknown 04/26/2019 12:42 PM CDT 04/26/2019 1:19 PM CDT Judah Norton MD LAB - CHEMISTRY ORDE RABLES Performing Organization Address City/[facility]/[place] [address], [facility] [phone] * (ABNORMAL) COMPREHENSIVE METABOLIC PANEL (04/26/2019 12:42 PM CDT) BUN 72(H) 7 - 26 mg/dL 04/26/2019 1:43 PM [facility] Creatinine 4.9(H) 0.6 - 1.2 mg/dL 04/26/2019 1:43 PM [facility] Sodium 138 136 - 145 mmol/L 04/26/2019 1:43 PM [facility] Potassium 4.1 3.5 - 4.5 mmol/L 04/26/2019 1:43 PM [facility] Chloride 101 98 - 107 mmol/L 04/26/2019 1:43 PM [facility] CO2 22 22 - 29 mmol/L 04/26/2019 1:43 PM [facility] Glucose 227(H) 70 - 115 mg/dL 04/26/2019 1:43 PM [facility] Calcium 9.2 8.4 - 10.2 mg/dL 04/26/2019 1:43 PM [facility] Protein Total 6.9 6.0 - 8.3 g/dL 04/26/2019 1:43 PM [facility] Albumin 3.6 3.4 - 5.0 g/dL 04/26/2019 1:43 PM [facility] Bilirubin Total 0.4 0.2 - 1.2 mg/dL 04/26/2019 1:43 PM [facility] Alkaline Phosphatase 83 40 - 150 Units/L 04/26/2019 1:43 PM [facility] ALT 32 0 - 55 Units/L 04/26/2019 1:43 PM [facility] AST 30 5 - 34 Units/L 04/26/2019 1:43 PM [facility] Anion Gap 19(H) 8 - 18 04/26/2019 1:43 PM [facility] BUN/Creatinine Ratio 15 7 - 23 04/26/2019 1:43 PM [facility] Osmolality Calculated 314(H) 270 - 300 mOsm/kg 04/26/2019 1:43 PM [facility] Albumin/Globulin Ratio 1.1 1.1 - 2.3 04/26/2019 1:43 PM [facility] eGFR 13(L) >60 mL/min/1.7 3 m2 04/26/2019 1:43 PM [facility] Blood BLOOD SPECIMEN / Unknown Lab Venipuncture / Unknown 04/26/2019 12:42 PM CDT 04/26/2019 1:19 PM CDT Judah Norton MD LAB - CHEMISTRY SUSANNAH Roman Organization Address City/State/ZIP Co de Phone Number [facility] [address] [place] [address] * (ABNORMAL) CBC WITH DIFFERENTIAL (04/26/2019 12:42 PM CDT) WBC 4.9 3.5 - 10.5 10? 3 /uL 04/26/2019 1:22 PM [facility] RBC 3.40(L) 4.30 - 5.70 10? 6 /uL 04/26/2019 1:22 PM [facility] Hemoglobin 10.0(L) 13.5 - 17.5 g/dL 04/26/2019 1:22 PM [facility] Hematocrit 29.5(L) 39.0 - 50.0 % 04/26/2019 1:22 PM [facility] MCV 86.8 81.0 - 97.0 fL 04/26/2019 1:22 PM [facility] MCH 29.4 28.0 - 34.0 pg 04/26/2019 1:22 PM [facility] MCHC 33.9 32.0 - 36.0 g/dL 04/26/2019 1:22 PM [facility] Platelet Count 243 150 - 400 10? 3 /uL 04/26/2019 1:22 PM [facility] RDW-SD 39.9 36.0 - 50.0 fL 04/26/2019 1:22 PM [facility] RDW-CV 12.5 11.2 - 14.8 % 04/26/2019 1:22 PM [facility] MPV 9.7 9.3 - 12.8 fL 04/26/2019 1:22 PM [facility] nRBC Absolute 0.00 0 10? 3 /uL 04/26/2019 1:22 PM [facility] nRBC Auto 0.0 0 /100 WBC 04/26/2019 1:22 PM [facility] Neutrophils % 57.8 35.0 - 70.0 % 04/26/2019 1:22 PM [facility] Lymphocytes % 27.1 19.7 - 55.1 % 04/26/2019 1:22 PM [facility] Monocytes % 11.2 3.0 - 15.0 % 04/26/2019 1:22 PM [facility] Eosinophils % 2.9 0.0 - 6.0 % 04/26/2019 1:22 PM [facility] Basophil % 0.6 0.0 - 1.5 % 04/26/2019 1:22 PM [facility] Neutrophils Absolute 2.8 1.6 - 7.0 10? 3 /uL 04/26/2019 1:22 PM [facility] Lymphocyte Absolute 1.3 0.8 - 2.9 10? 3 /uL 04/26/2019 1:22 PM [facility] Monocytes Absolute 0.55 0.14 - 0.66 10? 3 /uL 04/26/2019 1:22 PM [facility] Eosinophils Absolute 0.14 0.00 - 0.45 10? 3 /uL 04/26/2019 1:22 PM [facility] Basophils Absolute 0.03 0.00 - 0.06 10? 3 /uL 04/26/2019 1:22 PM [facility] Immature Granulocytes % 0.4 0.0 - 1.0 % 04/26/2019 1:22 PM [facility] Blood BLOOD SPECIMEN / Unknown Lab Venipuncture / Unknown 04/26/2019 12:42 PM CDT 04/26/2019 1:19 PM CDT Judah Norton MD LAB - HEMATOLOGY ORD ERABLES [facility] [address] [phone] * (ABNORMAL) CK BLOOD (04/26/2019 12:42 PM CDT) CK Total 280(H) 30 - 200 Units/L 04/26/2019 1:43 PM [facility] Blood BLOOD SPECIMEN / Unknown Lab Venipuncture / Unknown 04/26/2019 12:42 PM CDT 04/26/2019 1:19 PM CDT Judah Norton MD LAB - CHEMISTRY SUSANNAH LEONE [address] [phone] * (ABNORMAL) LDH BLOOD (04/26/2019 12:42 PM CDT) LDH Total 268(H) 125 - 243 Units/L 04/26/2019 1:43 PM CDT [facility] Blood BLOOD SPECIMEN / Unknown Lab Venipuncture / Unknown 04/26/2019 12:42 PM CDT 04/26/2019 1:19 PM CDT Judah Norton MD LAB - CHEMISTRY SUSANNAH LEONE Performing Organization Address [facility]/ZIP Co de Phone Number [address] [phone] * ALDOLASE (04/26/2019 12:42 PM CDT) Aldolase 6.9 3.3 - 10.3 U/L 04/29/2019 3:08 PM CDT [facility] ([facility]) Blood BLOOD SPECIMEN / Unknown Lab Venipuncture / Unknown 04/26/2019 12:42 PM CDT 04/26/2019 1:18 PM CDT Narrative [facility] ([facility]) - 04/29/2019 3:08 PM CDT Performed at: ??01 - [facility] [address] [place], [place] ??[id number] Web Feeder: Mehdi Del Angel PhD, Phone: ??[phone] Judah Norton MD LAB - CHEMISTRY SUSANNAH LEONE Performing Organization Address City/[facility]/ZIP Co de Phone Number [facility] ([facility]) [address] [place] [address], [facility] * URIC ACID BLOOD (04/26/2019 12:42 PM CDT) Uric Acid 4.4 2.6 - 7.2 mg/dL 04/26/2019 2:13 PM CDT [facility] Blood BLOOD SPECIMEN / Unknown Lab Venipuncture / Unknown 04/26/2019 12:42 PM CDT 04/26/2019 1:19 PM CDT Judah Norton MD LAB - CHEMISTRY SUSANNAH LEONE [facility] Organization Address City/State/ZIP Co de Phone Number [address] [phone] documented in this encounter Visit Diagnoses Diagnosis Gout, unspecified cause, unspecified chronicity, unspecified site- Primary Sicca, unspecified type (HCC) Osteoarthritis, unspecified osteoarthritis type, unspecified site documented in this encounter Care Teams Modular Set Crew Member Relationship Specialty Start Date End Date Aditya Castro Update Information PCP - General 03/06/19 documented as of this encounter
--- OUTSIDE RECORDS SUMMARY | 2024-08-18 13:01 | XMS_ITS | Continuity of Care Document ---
Author Organization [place] - [facility], [facility] [place] Address [address] [place] [address] Care Team Providers Care Safety Companion Name Role Phone ADITYA CASTRO Primary Care Provider [phone] DAITYA CASTRO Referring Provider [phone] ADITYA CASTRO Primary Care Provider Assessment Encounter Date Assessment Date Assessment LastModified by Organization Details LastModified Time 06/21/2024 06/21/2024 The patient has moderately severe primary osteoarthritis both knees as described. He is doing well after a shot of cortisone in both knees as well as oral prednisone. For the future we could do shots again if necessary in a couple of months we are limited in the fact that he is on Coumadin so he can not take nonsteroidal anti-inflammatory medications. We did talk about the possibility of gel shots with the future if necessary. Otherwise I will see him back as needed for both knees. The patient also has trochanteric bursitis of the right hip. He has multiple scars from previous hip surgeries nearly 40 years ago. We talked about stretching he states he does have this already I offered him formal physical therapy he declined he would like to do it on his own at home. We talked about proper stretching exercises and ice afterwards to help with the inflammation. He does have a refill on his oral prednisone pills he will get that picked up and use that as well. We also talked about a shot of cortisone he wanted proceed therefore under sterile conditions I injected the patient's right hip trochanteric bursa in the office with 4 cc 0.5% bupivacaine and 20 mg of Kenalog. Patient tolerated procedure well. I can see him back again in 6 weeks or so if necessary to recheck his hip we will see how he does. If he decides he wants to do formal therapy he will call. He voiced understanding and agree with the above plan he will call for any further problems difficulties or questions. [email or web address] Not available 06/21/2024 12:00:32 Plan of Treatment Reminders Order Date Submit Date Provider Last Modified By Organization Details Last Modified Time Details Appointments Follow Up 30 2024 02:45P Lisa Castro MD Not available Not available Not available Hospital Follow Up 2024 01:00P Lisa Castro MD Not available Not available Not available Lab None recorded. Referral None recorded. Procedures injection /aspirati on joint/bur sa (PROC) 2023 [email or web address] In-Office Order, Internal Use Only DO Not Attach Compendium DO Not Attach Compendium, Do Not Delete/merge, [id number] 06/21/2024 11:43:13 Surgeries None recorded. Imaging XR, hip + pelvis, unilatera l 2023 024 [email or web address] [facility] [place], [address], [place], [address], 06/21/2024 12:02:32 Medication Orders bupivacai ne HCl 0.5 % (5 mg/mL) injection solution 2023 024 [email or web address] [id number], [address], [place], [id number], 06/21/2024 11:52:35 Kenalog 10 mg/mL suspensio n for injection 2023 024 [id number] [id number], [address], [place], [phone], 07/12/2024 21:17:10 Patient TargetsNo targets recorded. Patient InstructionsNo instructions recorded. Reason for Referral None Reported. Results Created Date Observation Date Name Description Value Unit Range Abnormal Flag Note LastModifiedBy Organization Detail LastModifiedTime 06/21/20 XR, hip + pelvi s, unila teral No observ ation record ed. [email or web address] [facility] [address], [place], [address], 06/21/2024 12:02:31 07/12/20 24 07/12/2024 CT, abdom en + pelvi s, w/o contr ast No observ ation record ed. [address], [place], [address], 07/15/2024 11:27:52 07/16/2007/16/2024 CT, abdom en + pelvi s, w/o contr ast No observ ation record ed. [address], [place], [address], 07/17/2024 09:02:10 08/11/20 24 08/11/2024 CT, abdom en + pelvi s, w/o contr ast No observ ation record ed. [address], [place], [address], 08/12/2024 09:33:09 Result Notes None recorded. 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 709348243 Active 2017 Not Available [facility] 3 01:10:47 Chronic back pain 059870184 Active 2022 Not Available [facility] 3 01:10:47 Hyperchol esterolem ia 57365410 Active 2017 Not Available [facility] 3 01:10:47 Seborrhei c dermatiti s of scalp 361440289 Active 2022 Not Available [facility] 3 01:10:47 Chronic physical disabilit y 702316422 Active 2018 Not Available [facility] 3 01:10:47 History of deep vein thrombosi s 376852814 Active 2017 Not Available [facility] 3 01:10:47 Heartburn 67948367 Active 2017 Not Available [facility] 3 01:10:47 Ultrasoun d scan abnormal 183498422 Active 2020 Not Available [facility] 3 01:10:47 Hypertrop hy of nasal turbinate s 82844029 Active 2021 Not Available [facility] 3 01:10:47 Sensorine ural hearing loss of bilateral ears 140972370 Active 2021 Not Available [facility] 3 01:10:47 Periphera l venous insuffici ency 47960892 Active 2020 Not Available [facility] 3 01:10:47 Myocardia l infarctio n 28432420 Completed 201705/08/2018 Not Available [facility] 3 01:10:48 Stable angina 130945412 Active 2017 Not Available [facility] 3 01:10:48 End stage renal failure on dialysis 967984170 Active 2019 Not Available [facility] 3 01:10:48 Degenerat ion of lumbar intervert ebral disc 73687131 Active 2018 Not Available [facility] 3 01:10:48 Gastroeso phageal reflux disease without esophagit is 668638100 Active 2017 Not Available [facility] 3 01:10:48 Anemia 785880193 Active 2017 Not Available [facility] 3 01:10:48 Chronic low back pain 488008691 Active 2018 Not Available [facility] 3 01:10:48 Pain in toe 690049476 Active 2018 Not Available [facility] 3 01:10:48 Pain in toe 262835143 Active 2018 Not Available [facility] 3 01:10:48 Right upper quadrant pain 336818091 Active 2020 Not Available [facility] 3 01:10:48 Type 2 diabetes mellitus without complicat ion 496465707 Completed 201701/10/2019 Not Available [facility] 3 01:10:48 Pain in left foot 57487171533 9107 Active 2019 Not Available [facility] 3 01:10:48 Vitamin D deficienc y 92088988 Active 2017 Not Available [facility] 3 01:10:49 Seasonal allergic rhinitis 708606518 Active 2017 Not Available [facility] 3 01:10:49 Sinusitis 26344172 Active 2021 Not Available [facility] 3 01:10:49 Hypertens bianca disorder 34320143 Active 2017 Not Available [facility] 3 01:10:49 Osteoarth ritis 371314227 Active 2019 Not Available [facility] 3 01:10:49 Umbilical hernia 409768159 Active 2018 Not Available [facility] 3 01:10:49 Vertigo 307736713 Active 2021 Not Available [facility] 3 01:10:49 Abrasion and/or friction burn of skin 068071604 Active 2018 Not Available [facility] 3 01:10:49 Chronic sinusitis 26279596 Active 2021 Not Available [facility] 3 01:10:49 Multiple benign melanocyt ic nevi 670154101 Active 2017 Not Available [facility] 3 01:10:50 Deep venous thrombosi s of lower extremity 656119308 Active 2022 Not Available [facility] 3 01:10:50 Dizziness 904189978 Active 2017 Not Available [facility] 3 01:10:50 Dysphagia 80309652 Active 2021 Not Available [facility] 3 01:10:50 Obesity 167495095 Active 2017 Not Available [facility] 3 01:10:50 Ketoacido sis due to type 1 diabetes mellitus 418294811 Active 2019 Not Available [facility] 3 01:10:50 Nausea 752181209 Active 2021 Not Available [facility] 3 01:10:50 Congestiv e heart failure 67598383 Active 2017 Not Available [facility] 3 01:10:50 Diabetic periphera l neuropath y 589870340 Active 2017 Not Available [facility] 3 01:10:51 Asymmetri nikos hearing loss 254139884 Active 2021 Not Available [facility] 3 01:10:51 Chronic kidney disease stage 4 032643537 Completed 201707/29/2020 Not Available [facility] 3 01:10:51 Chronic kidney disease stage 5 390379642 Active 2019 Not Available [facility] 3 01:10:51 Uncontrol led type 2 diabetes mellitus 162741054 Completed 201705/16/2019 Aditya Castro MD [address] [address], [place], [address] , [facility] 4 09:03:03 Gastritis 1932585 Active 2021 Not Available [facility] 3 01:10:51 End-stage renal disease 62847587 Active 2019 Not Available [facility] 3 01:10:51 Type 1 diabetes mellitus 57479810 Active 2018 Not Available [facility] 3 01:10:52 Atrial fibrillat ion 42884126 Active 2017 Not Available [facility] 3 01:10:52 Hyperlipi demia 49467314 Active 2017 Not Available [facility] 3 01:10:52 Heart disease 57783956 Active 2017 Not Available [facility] 3 01:10:52 Hyperpara thyroidis m 84500775 Active 2018 Not Available [facility] 3 01:10:52 Nasal congestio n 13798086 Active 2021 Not Available [facility] 3 01:10:52 Diabetes mellitus 06530177 Active 2017 Not Available [facility] 3 01:10:52 Obstructi ve sleep apnea syndrome 67600198 Active 2018 Not Available [facility] 3 01:10:53 Epigastri c pain 27287596 Active 2021 Not Available [facility] 3 01:10:53 Chronic idiopathi c constipat ion 88548607 Active 2020 Not Available [facility] 3 01:10:53 Corneal abrasion 03468275 Active 2018 Not Available [facility] 3 01:10:53 Dystrophi a unguium 15365861 Active 2018 Not Available [facility] 3 01:10:53 Gout 64248090 Active 2017 Not Available [facility] 3 01:10:53 Chronic renal failure 58991035 Completed 201705/08/2018 Not Available [facility] 3 01:10:54 Skin lesion 15397408 Active 2017 Not Available [facility] 3 01:10:54 Hypertrig lyceridem ia 243063344 Active 2022 Aditya Castro MD [address] [place] [address], [address] [address], [place], [address] , [facility] 3 16:04:08 Chronic constipat ion 766340884 Active 2022 Aditya aCstro MD [address], [place], [address] , [employer] [facility] [employer] [facility] 3 16:45:46 Cough 76936785 Active 2022 Aditya Castro MD [address], [place], [address] , [employer] [facility] 3 12:45:44 Bronchiti s 82174900 Active 2022 Aditya Castro MD [address], [place], [address] , [employer] [facility] 3 09:22:50 Allergic rhinitis 41467312 Active 2022 Aditya Castro MD [address], [place], [address] , [employer] [facility] 3 09:28:39 Allergic contact dermatiti s 295323868 Active 2022 Aditya Castro MD [address], [place], [address] , [employer] [facility] 3 16:06:02 Tinea cruris 853131048 Active 2022 Aditya Castro MD [address], [place], [address] , [employer] [facility] 3 16:06:15 Acute bacterial sinusitis 61334798 Active 2023 KATIE Chen [address], [place], [address] , [employer] [facility] [employer] [facility] 4 09:55:25 Ulcer of mouth 70933909 Active 2023 Aditya Castro MD [address], [place], [address] , [employer] [facility] [employer] [facility] 4 09:03:52 Onychomyc osis of toenails 698122455 Active 2023 Chris Linda DPM [address], [place], [address] , [facility] [place] [place] [employer] [facility] 4 12:24:55 Folliculi tis 72725058 Active 2023 Aditya Castro MD [address], [place], [address] , [facility] [employer] [facility] 4 10:26:36 Pain of right knee joint 55462422356 4100 Active 2023 Aditya Castro MD [address], [place], [address] , [employer] [facility] [employer] [facility] 4 10:31:07 Bleeding of ear canal 696315014 Active 2023 Aditya Castro MD [address], [place], [address] , [employer] [facility] [employer] [facility] 4 10:40:38 Acute left otitis media 195249157 Active 2023 Rohit Jessica MD [address] [facility], [place], [address] , [employer] [facility] [employer] [facility] 4 16:04:39 Thoracic back pain 712670541 Active 2023 Aditya Castro MD [address], [place], [address] , [facility] [employer] [facility] 4 16:28:59 Pain of right shoulder blade 161811891 Active 2023 Aditya Castro MD [address], [place], [address] , [facility] [employer] [facility] 4 16:30:04 Degenerat ion of thoracolu mbar intervert ebral disc 43382128 Active 2023 Aditya Castro MD [address], [place], [address] , [facility] [employer] [facility] 4 16:30:54 Hypothyro idism 07399846 Active 2023 Aditya Castro MD [address], [place], [address] , [facility] 4 16:34:29 Uncontrol led type 2 diabetes mellitus 988249897 Active 2023 Aditya Castro MD [address], [place], [address] , [facility] 4 09:03:03 Bilateral osteoarth ritis of knees 64672215016 9107 Active 2023 Sofia Newby null, [place] [facility] 4 11:42:16 Pain of left knee joint 16114845106 4107 Active 2023 LESLY Gambino [address], [place], [address] , [facility] 4 13:42:14 Pain in right hip joint 21658879252 9102 Active 2023 Lisa Lopez CNA null, [place] [facility] 4 11:11:43 Trochante margarita bursitis of right hip 48748114111 9100 Active 2023 LESLY Gambino [address], [place], [address] , [facility] 4 12:00:40 Gallstone 200533900 Active 2023 Aditya Castro MD [address], [place], [address] , [facility] 4 11:21:33 Right flank pain 971396495 Active 2023 Aditya Castro MD [address], [place], [address] , [facility] 4 11:29:38 Kidney stone 01169545 Active 2023 Aditya Castro MD [address], [place], [address] , [employer] 11:31:01 Notes:blood clots, coronary artery disease, head trauma or injury, kidney disease, seizures, use of blood thinners, balance problems, numbness or tingling, loss of memory, swelling in legs, shortness of breath, muscle pain, back/neck pain, swollen or painful joints, excessive thirst, dry mouth, sleep apnea, wears glasses Some problems listed in Document: #[id number] could not be added to this patient's chart. Please review this document and add these problems to the patient's chart manually as needed. Problem Notes None recorded. Procedures Surgical History Date Name Laterality Status Provider Name and Address Organization Details Recorded Time 05/02/20 24 Nail Debridement completed Chris Linda DPM [address], [place], [address], [employer] 05/20/2024 09:31:13 03/11/20 24 Nail Debridement completed Chris Linda DPM [address], [place], [address], [employer] 03/11/2024 12:35:50 03/11/20 24 Wound Care-Podiatry completed Chris Linda DPM [address], [place], [address], [employer] 03/11/2024 12:34:57 01/08/20 24 Wound Care-Podiatry completed Chris Linda DPM [address], [place], [address], [employer] 01/08/2024 12:26:31 12/25/19 24 Medicare Wellness CPT Code, subsequent completed Beth Willis RN [facility] [employer] 12/25/2023 15:24:37 11/06/19 24 Medicare Wellness CPT Code, subsequent cancelled Beth Willis RN [place] [email or web address] 11/03/2023 10:10:00 01/08/20 22 SEPTOPLASTY (SURG) completed Not Available [facility] 10/19/2022 01:16:48 06/03/20 21 Cardiac Cath completed Not Available [facility] 023 01:06:21 reduction of nasal turbinate completed Not Available [facility] 10/19/2022 01:06:21 procedure on heart completed Lisa Lopez CNA [place] [facility] 05/10/2024 11:11:45 Imaging Results Imaging Date Name Status LastModified by Organiz ation Details LastModified Time 06/21/2024 XR, hip + pelvis, unilateral completed [email or web address] [facility] [place] [address], [place], [address], 06/21/2024 12:02:31 Procedure Notes None recorded. Medical Equipment None Reported. Allergies Allergen ID Allergen Name Allergen Category Reaction Reaction Severity Criticality Documentation Date Start Date Code Code System Note Provider Name and Address Organization Details Recorded Time 1834 Iodinated contrast media (substanc e) medicatio n rash severe Not available 10/19/2022 57271 2004 SNOMED Not Available [facility] 3 01:16:23 1835 Brilinta medicatio n rash severe Not available 10/19/2022 60026 36 RxNorm Not Available [facility] 3 01:16:23 1836 allopurin ol medicatio n other severe Not available 10/19/2022 519 RxNorm Not Available [facility] 3 01:16:23 Medications Name Sig Start Date [...] mg by injectio n route. 2023 active [facility]: [id number] Not Available Not Available Not [...] U-100 Insulin KwikPen 100 unit/mL (3 mL) subcutaneo us active [...] Not Available selenium sulfide 2.5 % lotion 03/08 completed Not Available Not Available Not Available Tech[employer]ITE Pen Needle 32 gauge x 1/4 USE WITH INSULIN DIRECTED BY ENDO active Not Available Not Available No t Available [employer] Pen Needle 32 gauge x 5/32 active Not Available Not Available Not Available Basaglar KwikPen U-100 Insulin 100 unit/mL (3 mL) subcutaneo [...] height Body mass index (BMI) Body weight Provider Name and Address Organization Details Last Updated DateTime 06/21/2024 177.8 cm 37.9 kg/m2 141929.39 g Lisa Lopez CNA [place] [facility] [place] [employer] [facility] 06/21/2024 11:11:01 Social History Question Answer Notes LastModified by Organization Details LastModified Time Tobacco Smoking Status Never Smoker Not Available [facility] 10/19/2022 01:04:37 Do You Have An Advance Directive? No MIGRATION.0301 [id number] Information not available 10/19/2022 What Is Your Level Of Alcohol Consumption? None MIGRATION.0301 857247 Information not available 10/19/2022 Are You Blind Or Do You Have Difficulty Seeing? No MIGRATION.0301 [id number] Information not available 10/19/2022 Is Blood Transfusion Acceptable In An Emergency? Yes Information not available 12/07/2023 What Is Your Level Of Caffeine Consumption? Occasional MIGRATION.0301 [id number] Information not available 10/19/2022 How Much Tobacco Do You Chew? None MIGRATION.0301 455907 Information not available 10/19/2022 What Is Your Code Status? Full Code Information not available 12/07/2023 In The 14 Days Before Symptom Onset, Have You Had Close Contact With A Laboratory-confi rmed COVID-19 While That Case Was Ill? No MIGRATION.0301 [id number] Information not available 10/19/2022 In The 14 Days Before Symptom Onset, Have You Had Close Contact With A Person Who Is Under Investigation For COVID-19 While That Person Was Ill? No MIGRATION.0301 820091 Information not available 10/19/2022 Are You Deaf Or Do You Have Serious Difficulty Hearing? No MIGRATION.0301 [id number] Information not available 10/19/2022 What Type Of Diet Are You Following? CARDIAC And Renal MIGRATION.0301 815649 Information not available 10/19/2022 Which Illicit Or Recreational Drugs Have You Used? NONE MIGRATION.0301 [id number] Information not available 10/19/2022 Do You Or Have You Ever Used E-cigarettes Or Vape? Never Used Electronic Cigarettes MIGRATION.0301 895990 Information not available 10/19/2022 What Is The Highest Grade Or Level Of School You Have Completed Or The Highest Degree You Have Received? CC00620-3 2 Years MIGRATION.0301 312882 Information not available 10/19/2022 What Is Your Occupation? DISABLED MIGRATION.0301 [id number] Information not available 10/19/2022 Have There Been Any Changes To Your Family Or Social Situation? No Information not available 12/07/2023 Are There Any Guns Present In Your Home? No MIGRATION.0301 257058 Information not available 10/19/2022 Do You Use Insect Repellent Routinely? No Information not available 12/07/2023 Where Do You Live? SingleLevelHouse Information not available 12/07/2023 Advance Directive- Providers Has Reviewed Directive And Consents To Follow Them (insert Provider Name With Any Objectives In Notes Field) No MIGRATION.030 [id number] Information not available 10/19/2022 Presence Of Domestic [...] Do You Have A Medical Power Of Supervisor [employer]? No Information not available 12/07/2023 What Was The Date Of Your Most Recent Tobacco Screening? 12/25/2023 [email or web address] Information not available 12/25/2023 Do You Have Any Pets? Yes Information not available 12/07/2023 What Is Your Relationship Status? Single MIGRATION.0301 [id number] Information not available 10/19/2022 Do You Use Your Seat Belt Or Car Seat Routinely? Yes MIGRATION.0301 015030 Information not available 10/19/2022 Do You Have Smoke And Carbon Monoxide Detectors In Your Home? Yes Information not available 12/07/2023 Are You Passively Exposed To Smoke? No Information not available 12/07/2023 Do You Or Have You Ever Used Smokeless Tobacco? Never Used Smokeless Tobacco MIGRATION.0301 638903 Information not available 10/19/2022 Are There Any Smokers In Your House? No Information not available 12/07/2023 Do You Feel Stressed (tense, Restless, Nervous, Or Anxious, Or Unable To Sleep At Night)? [id number] MIGRATION.0301 676340 Information not available 10/19/2022 Do You Use Sunscreen Routinely? No Information not available 12/07/2023 Have You Recently Traveled Abroad? No MIGRATION.0301 486148 Information not available 10/19/2022 Are You Currently In School? No MIGRATION.0301 617662 Information not available 10/19/2022 Sex: Unknown Functional Status Question Answer Note LastModified by [employer] Details LastModified Time Do you have difficulty walking or climbing stairs? No MIGRATION.[id number] 26 Information not available 10/19/2022 Do you have difficulty doing errands alone? No MIGRATION.[id number] 26 Information not available 10/19/2022 Do you have difficulty dressing or bathing? No MIGRATION.[id number] 26 Information not available 10/19/2022 What is your exercise level? Occasional MIGRATION.[id number] 26 Information not available 10/19/2022 Mental Status Question Answer Note LastModified by [employer] Details LastModified Time Do you have difficulty concentrating, remembering or making decisions? No [id number] Information not available 10/19/2022 Family History Relationship Description Onset Age of this Age Resolved Age Notes LastModified by Organization Details LastModified Time Father Heart disease [id number] Not available 10/19/2022 01:06:25 Father Hypertensive disorder [id number] Not available 10/19/2022 01:06:25 Notes:cancer-mother NO ENT H ISTORY Medical History Condition Response SLEEP APNEA N MRSA N ALLERGIES/HAYFEVER N HEART ARRHYTHMIA Y LUNG DISEASE/DISORDER N HISTORY OF DRUG ABUSE N INSOMNIA N RADIATION / CHEMOTHERAPY N COPD N HIGH CHOLESTEROL / HYPERLIPIDEMIA Y HYPERTHYROIDISM N BLOOD DISEASES N EAR OR HEARING PROBLEMS N HYPOTHYROIDISM N SHINGLES N DEPRESSION (INCLUDING POST ) N HAVE YOU BEEN HOSPITALIZED OR SEEN IN [facility] IN THE PAST YEAR ? N STROKE/TIA N ULCERS N OBESITY Y GERD/NAUSEA Y ANEURYSM N HISTORY WITH COMPLICATIONS WITH ANESTHES IA ? N Do you have Advance directive? N [...] SPECIFY N TOURETTE'S N BLOOD TRANSFUSION N ANEMIA/BLOOD DISORDER Y ANESTHESIA COMPLICATIONS N CHRONIC EAR INFECTIONS N AUTOIMMUNE DISEASE N TUBERCULOSIS N Immunizations Vaccine Type Date Status Note Provider Nam e and Address Organization Details Recorded Time Influenza, split virus, quadrivalent, PF 3 completed BERNARDO Reddy Jerardo [place] [facility] 07/03/2023 11:25:39 pneumococcal polysaccharide PPV23 0 completed Not Available [facility] 10/19/2022 01:16:16 Tdap 0 completed Not Available [facility] 10/19/2022 01:16:16 Influenza, split virus, quadrivalent, PF 9 completed Not Available [facility] 10/19/2022 01:16:16 Influenza, split virus, quadrivalent, PF 2 completed Not Available [facility] 10/19/2022 01:16:16 Influenza, split virus, quadrivalent, PF 1 completed Not Available [facility] 10/19/2022 01:16:16 Past Encounters Encounter ID Performer Location Encounter Start Date Encounter Closed Date Diagnosis/Indication Diagnosis SNOMED-CT Code Diagnosis ICD10 Code [id number] Aditya Castro MD [facility] [address] [address] 05/21/2024 15:45:57 05/21/2024 16:21:32 Gout 63268813 M10.9 Vitamin D deficiency 347 75142 E55.9 Uncontroll ed type 2 diabetes mellitus 551958250 E11.65 Hypertriglyceridemia 302 943812 E78.2 Hyperlipidemia 80540724 E78.5 Chronic constipation 236 318625 K59.09 Obesity 127916444 E66.9 Pain of ri ght knee joint 4118129437 72262 M25.561 Chronic back pain 975319 002 G89.29 [id number] LESLY Gambino [facility] [address] [facility] [address] [place] [id number] 06/21/2024 11:06:53 06/21/2024 11:57:45 Bilateral osteoarthritis of knees 2152029287 93227 M17.0 Pain of ri ght knee joint 8906214836 83131 M25.561 Pain of le ft knee joint 1406957401 58148 M25.562 Pain in ri ght hip joint 6013442427 14898 M25.551 Trochanter ic bursitis of right hip 7352751221 24417 M70.61 Health Concerns Section Related Observation LastModified by Organization Detai ls LastModified Time None Recorded Concern Status LastModified by Organization Details LastModified Time None Recorded Payers Encounter Date Sequence Insurance Name Policy Number Policy Ge Covered Member ID Ge Member ID Guarantor Name 06/21/2024 2 [place]CON[place] WHEN MEDICARE OR MEDICARE REPLACEMENT PRIMARY) Juvenal Daigle [id number] Juvenal Daigle 06/21/2024 1 [facility] (MEDICARE REPLACEMENT/AD VANTAGE - PPO) [id number] Juvenal Daigle [id number] Juvenal Daigle Notes Date Note Type Note Provider Name and Address Organization Details Recorded Time 06/21/2024 text/html The patient retu rns for recheck of both knees he has moderate primary osteoarthritis both knees particularly in the patellofemoral articulations more mild in the tibial femoral articulations left looks slightly worse than the right he has a little bit of narrowing in the medial compartment of the left knee both knees bothering him chronically. I treated him with shots of cortisone last time and also oral prednisone he comes in today stating that for the most part his knees feel pretty good he is quite pleased with the results he has occasional twinges more on the left than the right knee but otherwise no significant symptoms he is on Coumadin chronically for a heart condition and so can not take nonsteroidal anti-inflammatory medications. Fortunately the shots worked well for him. We did talk about gel shots for the future as another option in case cortisone does not work but for now he is doing very well. The patient also has a new problem today he is complaining of right hip lateral trochanteric pain. He states this has been ongoing for about 6 weeks or so denies any specific trauma or injury to his lateral trochanteric region recently. Nearly 40 years ago he did have a femur fracture of the shaft that required open reduction internal fixation that failed he had have another operation where he had a long keanu placed and then a year later he had the keanu removed. His x-rays today show an appearance of a well healed fracture but obvious residual changes in the femoral shaft from the previous multiple surgeries and the healed fracture. Overall alignment is good femoroacetabular joint appears to be fairly well-maintained only finding is a minor spur off the superior lateral corner of the acetabulum otherwise unremarkable. His pain is localized to the lateral trochanteric region really no pain over the groin itself. He has good range of motion of his hip he states it is tender over the trochanteric region he also has trouble sleeping on that side at times. If he sits too long it will start to throb and ache somewhat denies any back pain no weakness in the lower extremity no neurovascular deficits bowel or bladder symptoms are numbness or tingling. He comes in today for initial evaluation treatment of what sounds like trochanteric bursitis. He has no pain in the groin with weight-bearing. LESLY Gambino [address] [facility], [place] [address], [place], [address], [place] [facility] 06/21/2024 12:03:04
--- OUTSIDE RECORDS SUMMARY | 2024-08-18 13:01 | XMS_ITS | Data Portability ---
Author Organization [facility] [employer], Main Office Address [address] [place] [address] Care Team Providers Care Vial Gauger Name Role Phone ADITYA CASTRO Primary Care Provider [phone] ADITYA CASTRO Referring Provider ADITYA CASTRO Primary Care Provider Assessment Encounter Date Assessment Date Assessment LastModified by Organization Details LastModified Time 05/07/2024 05/07/2024 53 yo M with - WELL ADULT VISIT - RT KNEE PAIN, chronic - GOUT - HTG - HLD - GERD - DM I - HYPERPARATHYROIDISM - CHRONIC BACK PAIN - DDD L-SPINE - OA - HTN - CHF - A FIB [...] 9.6(02/26/20) - 8.2(06/09/20) - 7.5(06/22/21) - 9.7(11/01/22) X-ray T-spine, Rt scapula: 05/02/24. US LE [...] & imagines and further plan of care. Will do routine labs. Will refer to Ortho again. Will refer pt to GI. Advised pt to contact his Endo for [...] Annual labs here. Pt agreed. F/u with Ortho as per schedule. Cont f/u with ENT as per schedule. Cont f/u with Pain clinic as per schedule. Cont f/u with Endo at [facility] as per schedule. Cont f/u with Spine as per schedule. Cont f/u with Rheumat at [facility] as per schedule. Cont f/u with Surg as per schedule. Cont f/u with Cardio at [facility] as per schedule. Cont f/u with Nephro at [facility] as per schedule. Cont f/u with Hemat at [facility] as per schedule. Cont f/u with Clinical Biostatistician as per schedule. Cont f/u with Ophtho at as per schedule. Cont f/u with Derm at [facility] as per schedule. Cont f/u with Dr. Langley (Hand surgeon) at as per schedule. Educated pt about alarming symptoms to monitor at home and call us back or get checked in ED. Pt had acute renal failure and was admitted hospital due to s/e from Allopurinol as per his [facility]. So pt can not take any Allopurinol in future. So pt needs to be on Febuxostat and Colchicine for his Gout control. Pt's insurance declined for MRI L-spine wo and FCE testing. Pt's insurance declined for Saxenda. HM: Colonoscopy - 03/08, 1 polyp +. Cont f/u with GI as per schedule (5 yrs). Flu - 06/27/23. Pneumo - 02/12/20. Tdap - 10/22/19. Shingrix - At pharmacy/HD. F/u in 2-3 weeks. Annual labs in 05/15. Not available 05/07/2024 09:34:08 05/10/2024 05/10/2024 By x-ray and exa m the patient is noted to have moderate primary osteoarthritis bilateral patellofemoral articulations more mild in the tibial femoral articulations left looks slightly worse than right. He has little more narrowing in the medial compartment of the left knee. Both knees bother him chronically. We talked about treatment options in detail we are going to start with a course of physical therapy and oral prednisone. He also wanted to try shots of cortisone therefore under sterile conditions I injected both knee joints in the office with 4 cc 0.5% bupivacaine and 20 mg of Kenalog each. The patient tolerated the procedures well. I will see him back in 6 weeks or so to see what impact treatment has had. We talked about the possibility of gel shots he has not had cortisone so hopefully this will give him good relief along with the other treatment. We can not use nonsteroidal anti-inflammatory medications he is on Coumadin chronically. The patient voiced understanding agrees with the above plan we did talk about using Tylenol for pain and icing particularly the end of the day if he has had a busy day and they are aching. He voiced understanding will call for any further problems difficulties or questions. Not available 05/10/2024 13:40:47 05/21/2024 05/21/2024 53 yo M with - GOUT - HTG - HLD - GERD - DM I - HYPERPARATHYROIDISM - RT KNEE PAIN, chronic - CHRONIC BACK PAIN - DDD L-SPINE - OA - HTN - CHF - A FIB [...] & imagines and further plan of care. Advised pt to contact his Endo for [...] do only Annual labs here. Pt agreed. Cont f/u with Ortho as per schedule. Cont f/u with ENT as per schedule. Cont f/u with Pain clinic as per schedule. Cont f/u with Endo at [facility] as per schedule. Cont f/u with Spine as per schedule. Cont f/u with Rheumat at [facility] as per schedule. Cont f/u with Surg as per schedule. Cont f/u with Cardio at [facility] as per schedule. Cont f/u with Nephro at [facility] as per schedule. Cont f/u with Hemat at [facility] as per schedule. Cont f/u with Clinical Biostatistician as per schedule. Cont f/u with Ophtho at as per schedule. Cont f/u with Derm at [facility] as per schedule. Cont f/u with Dr. Langley (Hand surgeon) at as per schedule. Educated pt about alarming symptoms to monitor at home and call us back or get checked in ED. Pt had acute renal failure and was admitted hospital due to s/e from Allopurinol as per his [facility]. So pt can not take any Allopurinol in future. So pt needs to be on Febuxostat and Colchicine for his Gout control. Pt's insurance declined for MRI L-spine wo and FCE testing. Pt's insurance declined for Saxenda. : Colonoscopy - 03/08, 1 polyp +. Cont f/u with GI as per schedule (5 yrs). Flu - Pt gets at HD/pharmacy. Pneumo - 02/12/20. Tdap - 10/22/19. Shingrix - At pharmacy/HD. F/u in 3-4 months. Annual labs in 05/15. [email or web address] Not available 05/21/2024 16:19:00 06/21/2024 06/21/2024 The patient has moderately severe [...] for any further problems difficulties or questions. Not available 06/21/2024 12:00:32 07/15/2024 07/15/2024 53 yo M with - [...] per schedule. Cont f/u with Endo at [facility] as per schedule. Cont f/u with Spine as per schedule. Cont f/u with Rheumat at [facility] as per schedule. Cont f/u with Surg as per schedule. Cont f/u with Cardio at [facility] as per schedule. Cont f/u with Nephro at [facility] as per schedule. Cont f/u with Hemat at [facility] as per schedule. Cont f/u with Clinical Biostatistician as per schedule. Cont f/u with Ophtho at as per schedule. Cont f/u with Derm at [facility] as per schedule. Cont f/u with Dr. Langley (Hand surgeon) at as per schedule. Educated pt about alarming symptoms to monitor at home and call us back or get checked in ED. Pt had acute renal failure and was admitted hospital due to s/e from Allopurinol as per his [facility]. So pt can not take any Allopurinol in future. So pt needs to be on Febuxostat and Colchicine for his Gout control. Pt's insurance declined for MRI L-spine wo and FCE testing. Pt's insurance declined for [employer]. HM: Colonoscopy - 03/08, 1 polyp +. Cont f/u with GI as per schedule (5 yrs). Flu - Pt gets at HD/pharmacy. Pneumo - 02/12/20. Tdap - 10/22/19. Shingrix - At pharmacy/HD. F/u in 3-4 months as before. Annual labs in 05/15. [email or web address] Not available 07/15/2024 12:11:51 Plan of Treatment Reminders Order Date Submit Date Provider Last Modified By Organization Details Last Modified Time Details Appointments Follow Up 30 2024 02:45P Lisa Castro MD Not available Not available Not available Hospital Follow Up 2024 01:00P Lisa Castro MD Not available Not available Not available Lab uric acid, serum or plasma 2023 024 [facility] (Lab), [address] [place], [address], 05/07/2024 16:36:28 lipid panel, serum 2023 024 [facility] (Lab), [address] [place], [address], 05/07/2024 16:36:39 TSH, serum, reflex free T4 [address] (Lab), [address] [place], [address], 05/16/2024 08:14:16 PSA, serum or plasma [address] (Lab), [address] [place], [address], 05/16/2024 08:14:17 vitamin D, 25-hydrox y, total, serum [address] (Lab), [address] [place], [address], 05/16/2024 08:14:16 vitamin B12 + folate, serum or blood [address] (Lab), [address] [place], [address], 05/16/2024 08:14:17 magnesium , serum or plasma 2023 024 [facility] (Lab), [address] [place], [address], 05/07/2024 16:36:42 glycohemo globin, total, blood [address] (Lab), [address] [place], [address], 05/20/2024 15:55:42 CMP, serum or plasma 2023 024 [facility] (Lab), [address] [place], [address], 05/07/2024 16:36:34 microalbu min, urine 2023 024 [facility] (Lab), [address] [place], [address], 05/07/2024 14:51:53 CBC w/ auto diff 2023 024 [facility] (Lab), [address] [place], [address], 05/07/2024 14:52:26 Referral gastroent erologist referral - Please call patient to schedule an appointme nt. Thank you 2023 024 [email or web address] Domitila Haji MD, [address] [facility], [place], [address], 06/04/2024 08:49:30 orthopedi c surgeon referral - Please call patient to schedule an appointme nt. Thank you. 2023 024 [email or web address] [facility], [address], [place], [address], 06/23/2024 10:12:26 physical therapist referral - Please contact patient to schedule 2023 024 [email or web address] [facility] [place] [facility], [address], [place], [address], 05/21/2024 15:57:09 general surgeon referral - Please call patient to schedule an appointme nt. Thank you. 2023 [email or web address] Everton Hooker MD, [address] [facility], [facility] [address], [place], [address], 08/12/2024 08:54:30 Procedures injection /aspirati on joint/bur sa (PROC) 2023 024 [email or web address] In-Office Order, Internal Use Only DO Not Attach Compendium DO Not Attach Compendium, Do Not Delete/merge, [id number] 05/10/2024 11:45:25 injection /aspirati on joint/bur sa (PROC) 2023 024 [email or web address] In-Office Order, Internal Use Only DO Not Attach Compendium DO Not Attach Compendium, Do Not Delete/merge, [id number] 06/21/2024 11:43:13 Surgeries None recorded. Imaging XR, knee 2023 024 [email or web address] [facility] [place], [address], [place], [address], 05/10/2024 13:41:55 XR, hip + pelvis, unilatera l 2023 024 [email or web address] [facility] [place], [address], [place], [address], 06/21/2024 12:02:32 Medication Orders Linzess 72 mcg capsule 2023 024 [facility] #28211, [address] [facility], [place], [place], [id number], 05/07/2024 09:21:02 Vascepa 1 gram capsule 2023 [facility] #12767, [address] [facility], [place], [place], [id number], 05/07/2024 09:21:01 atorvasta tin 80 mg tablet 2023 [facility] #89326, [address] [facility], [place], [place], [id number], 05/07/2024 09:20:58 ezetimibe 10 mg tablet 2023 024 [facility] #66285, [address] [facility], [place], [place], [id number], 05/07/2024 09:21:01 gemfibroz il 600 mg tablet 2023 024 [facility] #15257, [address] [facility], [place], [place], [id number], 05/07/2024 09:21:02 bupivacai ne HCl 0.5 % (5 mg/mL) injection solution 2023 024 [email or web address] [facility] #29544, [address] [facility], [place], [place], [id number], 05/10/2024 12:52:07 Kenalog 10 mg/mL suspensio n for injection 2023 024 [id number] 15 [facility] #94733, [address] [facility], [place], [place], [id number], 07/12/2024 21:17:10 prednison e 10 mg tablets in a dose pack 2023 024 [email or web address] [facility] #33148, [address] [facility], [place], [place], [id number], 07/15/2024 11:30:05 Linzess 72 mcg capsule 2023 [facility] #22988, [address] [facility], [place], [place], [id number], 05/21/2024 16:08:05 Uloric 40 mg tablet 2023 [facility] #43121, [address] [facility], [place], [place], [id number], 05/21/2024 16:19:35 Vascepa 1 gram capsule 2023 [facility] #02597, [address] [facility], [place], [place], [id number], 05/21/2024 16:08:06 atorvasta tin 80 mg tablet 2023 [facility] #48057, [address] [facility], [place], [place], [id number], 05/21/2024 16:08:06 ezetimibe 10 mg tablet 2023 [facility] #24237, [address] [facility], [place], [place], [id number], 05/21/2024 16:08:09 gemfibroz il 600 mg tablet 2023 [facility] #35336, [address] [facility], [place], [place], [id number], 05/21/2024 16:08:08 ergocalci ferol (vitamin D2) 1,250 mcg (50,000 unit) capsule 2023 [facility] #27763, [address] [facility], [place], [place], [id number], 05/21/2024 16:08:05 bupivacai ne HCl 0.5 % (5 mg/mL) injection solution 2023 [email or web address] [facility] #97999, [address] [facility], [place], [place], [id number], 06/21/2024 11:52:35 Kenalog 10 mg/mL suspensio n for injection 2023 [id number] 15 [facility] #45327, [address] [facility], [place], [place], [id number], 07/12/2024 21:17:10 tamsulosi n 0.4 mg capsule 2023 [email or web address] [facility] #66954, [address] [facility], [place], [place], [id number], 07/15/2024 12:10:41 ketorolac 10 mg tablet 2023 [email or web address] [facility] #18139, [address] [facility], [place], [place], [id number], 07/15/2024 12:10:41 oxycodone 5 mg tablet 2023 [facility] #13195, [address] [facility], [place], [place], [id number], 07/15/2024 12:10:41 ondansetr on HCl 4 mg tablet 2023 [email or web address] [facility] #76708, [address] [facility], [place], [place], [id number], 07/15/2024 12:10:41 Patient TargetsNo targets recorded. Patient Instructions Encounter Date Encounter Id Patient Instructions Last Modified By Organization Details Last Modified Time 05/21/2024 [id number] starting a weigh t loss plan: care instructions [email or web address] Not available 05/21/2024 16:20:00 07/15/2024 [id number] starting a weigh t loss plan: care instructions [email or web address] Not available 07/15/2024 12:10:41 Reason for Referral Orthopedic Surgeon Referral for Pain of right knee joint Please call patient to schedule an appointment. Thank you. Referring Physician: Aditya Castro [facility], Encounter Date: 05/07/2024 [employer] Referral for Screening colonoscopy Please call patient to schedule an appointment. Thank you Referring Physician: Aditya Castro [facility], Encounter Date: 05/07/2024 Physical Therapist Referral for Bilateral osteoarthritis of knees Please contact patient to schedule Referring Physician: Gucci Brown, Orthopedic Surgery, Encounter Date: 05/10/2024 General Surgeon Referral for Gallstone RUQ pain, gallstones ++ Please call patient to schedule an appointment. Thank you. Referring Physician: Aditya Castro [facility], Encounter Date: 07/15/2024 Results Created Date Observation Date Name Description Value Unit Range Abnormal Flag Note LastModifiedBy Organization Detail LastModifiedTime 05/07/20 24 05/07/2024 MICRO ALBUM IN RANDO M URINE microalbumin , urine 785.1 mg/L 0.0-16 .6 high Not Available [facility] (Lab) [address] [place], [address], 05/07/2024 14:51:53 05/07/20 24 05/07/2024 CBC/C OMPLE TE BLD COUNT W/DIF F white blood cells 5.1 x10'3 /uL 4.2-10 .8 Not Available [facility] (Lab) [address] [place], [address], 05/07/2024 14:52:26 05/07/20 24 05/07/2024 CBC/C OMPLE TE BLD COUNT W/DIF F red blood cells 3.54 x10'6 /uL 4.10-5 .80 low Not Available [facility] (Lab) [address] [place], [address], 05/07/2024 14:52:26 05/07/20 24 05/07/2024 CBC/C OMPLE TE BLD COUNT W/DIF F hemoglobin 10.7 g/dL 13.2-1 7.0 low Not Available [facility] (Lab) [address] [place], [address], 05/07/2024 14:52:26 05/07/20 24 05/07/2024 CBC/C OMPLE TE BLD COUNT W/DIF F hematocrit 31.9 % 39.3-5 0.0 low Not Available [facility] (Lab) [address] [place], [address], 05/07/2024 14:52:26 05/07/20 24 05/07/2024 CBC/C OMPLE TE BLD COUNT W/DIF F mean red cell volume 90.1 fL 80.0-9 7.0 Not Available [facility] (Lab) [address] [place], [address], 05/07/2024 14:52:26 05/07/20 24 05/07/2024 CBC/C OMPLE TE BLD COUNT W/DIF F mean red cell hemoglobin 30.2 pg 27.0-3 3.0 Not Available [facility] (Lab) [address] [place], [address], 05/07/2024 14:52:26 05/07/20 24 05/07/2024 CBC/C OMPLE TE BLD COUNT W/DIF F mean RBC HGB concentratio n 33.5 g/dL 31.0-3 6.0 Not Available [facility] (Lab) [address] [place], [address], 05/07/2024 14:52:26 05/07/20 24 05/07/2024 CBC/C OMPLE TE BLD COUNT W/DIF F red cell distribution width 14.6 % 11.8-1 5.5 Not Available [facility] (Lab) [address] [place], [address], 05/07/2024 14:52:26 05/07/20 24 05/07/2024 CBC/C OMPLE TE BLD COUNT W/DIF F platelets 216 x10'3 /uL 150-40 0 Not Available [facility] (Lab) [address] [place], [address], 05/07/2024 14:52:26 05/07/20 24 05/07/2024 CBC/C OMPLE TE BLD COUNT W/DIF F mean platelet volume 11.2 fL 9.0-12 .4 Not Available [facility] (Lab) [address] [place], [address], 05/07/2024 14:52:26 05/07/20 24 05/07/2024 CBC/C OMPLE TE BLD COUNT W/DIF F neutrophils 44.1 % 39.0-7 2.0 Not Available [facility] (Lab) [address] [place], [address], 05/07/2024 14:52:26 05/07/20 24 05/07/2024 CBC/C OMPLE TE BLD COUNT W/DIF F lymphocytes 33.3 % 16.0-4 7.0 Not Available [facility] (Lab) [address] [place], [address], 05/07/2024 14:52:26 05/07/20 24 05/07/2024 CBC/C OMPLE TE BLD COUNT W/DIF F monocytes 14.3 % 5.0-12 .0 high Not Available [facility] (Lab) [address] [place], [address], 05/07/2024 14:52:26 05/07/20 24 05/07/2024 CBC/C OMPLE TE BLD COUNT W/DIF F eosinophils 7.5 % 1.0-7. 0 high Not Available [facility] (Lab) [address] [place], [address], 05/07/2024 14:52:26 05/07/20 24 05/07/2024 CBC/C OMPLE TE BLD COUNT W/DIF F basophils 0.6 % 0.0-2. 0 Not Available [facility] (Lab) [address] [place], [address], 05/07/2024 14:52:26 05/07/20 24 05/07/2024 CBC/C OMPLE TE BLD COUNT W/DIF F immature granulocytes 0.2 % 0.00-0 .50 Not Available [facility] (Lab) [address] [place], [address], 05/07/2024 14:52:26 05/07/20 24 05/07/2024 CBC/C OMPLE TE BLD COUNT W/DIF F neutrophils, absolute count 2.23 x10'3 /uL 1.5-8. 0 Not Available [facility] (Lab) [address] [place], [address], 05/07/2024 14:52:26 05/07/20 24 05/07/2024 CBC/C OMPLE TE BLD COUNT W/DIF F lymphocytes, absolute count 1.68 x10'3 /uL 1.07-3 .43 Not Available [facility] (Lab) [address] [place], [address], 05/07/2024 14:52:26 05/07/20 24 05/07/2024 CBC/C OMPLE TE BLD COUNT W/DIF F monocytes, absolute count 0.72 x10'3 /uL 0.29-0 .99 Not Available [facility] (Lab) [address] [place], [address], 05/07/2024 14:52:26 05/07/20 24 05/07/2024 CBC/C OMPLE TE BLD COUNT W/DIF F eosinophils, absolute count 0.38 x10'3 /uL 0.02-0 .53 Not Available [facility] (Lab) [address] [place], [address], 05/07/2024 14:52:26 05/07/20 24 05/07/2024 CBC/C OMPLE TE BLD COUNT W/DIF F basophils, absolute count 0.03 x10'3 /uL 0.01-0 .08 Not Available [facility] (Lab) [address] [place], [address], 05/07/2024 14:52:26 05/07/20 24 05/07/2024 CBC/C OMPLE TE BLD COUNT W/DIF F immature granulocytes ,absolute 0.01 x10'3 /uL 0.00-0 .05 Not Available [facility] (Lab) [address] [place], [address], 05/07/2024 14:52:26 05/07/20 24 05/07/2024 CBC/C OMPLE TE BLD COUNT W/DIF F nucleated red blood cells 0.0 % -0 Not Available [facility] (Lab) [address] [place], [address], 05/07/2024 14:52:26 05/07/20 24 05/07/2024 CBC/C OMPLE TE BLD COUNT W/DIF F NRBC# 0.00 x10'3 /uL Not Available [facility] (Lab) [address] [place], [address], 05/07/2024 14:52:26 05/07/20 24 05/07/2024 VITAM IN D 25-HY DROXY [id number] 25.2 NG/mL 30-100 low Vitam in D Statu s: Defic ient: <20 ng/mL Insuf ficie nt: 20-29 ng/mL Suffi cient : 30-10 0 ng/mL Not Available [facility] (Lab) [address] [place], [address], 05/07/2024 16:09:08 05/07/20 24 05/07/2024 TSH W/REF JOSE FT4 TSH with reflex free T4 1.430 uIU/m L 0.465- 4.680 Not Available [facility] (Lab) [address] [place], [address], 05/07/2024 16:20:16 05/07/20 24 05/07/2024 PSA SCREE N PSA medicare screen 0.71 NG/mL 0.00-4 .00 Not Available [facility] (Lab) [address] [place], [address], 05/07/2024 16:20:17 05/07/20 24 05/07/2024 URIC ACID SERUM uric acid 6.7 mg/dL 3.5-8. 5 Not Available [facility] (Lab) [address] [place], [address], 05/07/2024 16:36:28 05/07/20 24 05/07/2024 COMPR EHENS CARA METAB OLIC PANEL sodium 134 mmol/ L 137-14 5 low Not Available [facility] (Lab) [address] [place], [address], 05/07/2024 16:36:34 05/07/20 24 05/07/2024 COMPR EHENS CARA METAB OLIC PANEL potassium 3.7 mmol/ L 3.5-5. 1 Not Available [facility] (Lab) [address] [place], [address], 05/07/2024 16:36:34 05/07/20 24 05/07/2024 COMPR EHENS CARA METAB OLIC PANEL chloride 96 mmol/ L 98-107 low Not Available [facility] (Lab) [address] [place], [address], 05/07/2024 16:36:34 05/07/20 24 05/07/2024 COMPR EHENS CARA METAB OLIC PANEL carbon dioxide 29 mmol/ L 22-30 Not Available [facility] (Lab) [address] [place], [address], 05/07/2024 16:36:34 05/07/20 24 05/07/2024 COMPR EHENS CARA METAB OLIC PANEL anion gap 12.7 mmol/ L 14-22 low Not Available [facility] (Lab) [address] [place], [address], 05/07/2024 16:36:34 05/07/20 24 05/07/2024 COMPR EHENS CARA METAB OLIC PANEL glucose 316 mg/dL 70-99 high Not Available [facility] (Lab) [address] [place], [address], 05/07/2024 16:36:34 05/07/20 24 05/07/2024 COMPR EHENS CARA METAB OLIC PANEL BUN 63 mg/dL 8-19 high Not Available [facility] (Lab) [address] [place], [address], 05/07/2024 16:36:34 05/07/20 24 05/07/2024 COMPR EHENS CARA METAB OLIC PANEL creatinine 6.80 mg/dL 0.66-1 .25 high Not Available [facility] (Lab) [address] [place], [address], 05/07/2024 16:36:34 05/07/20 24 05/07/2024 COMPR EHENS CARA METAB OLIC PANEL GFR 8 Refer ence Range : [place] [facility] GFR Healt hy Adult : >60 mL/mi n/1.7 3 m2 Chron ic Kidne y Disea se: 15-60 mL/mi n/1.7 3 m2 Kidne y Failu re: <15/m L/min /1.73 m2 www.n iddk. nih.g ov The MDRD study equat ion has not been valid ated in child carlos <18 years of age; pregn ant women ; the elder ly >85 years of age; or in some racia l or ethni c subgr oups, such as Hispa nics. Outsi de the valid ated aster eters , estim ated GFR is less accur ate, requi ring clini nikos judgm ent on a case- by-ca se basis . Clini nikos inter preta tion for other races and ages must be made by the clini tatum. The MDRD study equat ion has not been valid ated for the evalu ation of serum creat inine relat ed to nutri ulices l statu s or medic ation usage . For perso ns <18 years of age, a pedia tric GFR calcu lator is avail able on the [facility] websi te: https :[email or web address] [email or web address] stephen.o rg/pr ofess ional s/kdo qi/gf r_cal culat or Not Available [facility] (Lab) [address] [place], [address], 05/07/2024 16:36:34 05/07/20 24 05/07/2024 COMPR EHENS CARA METAB OLIC PANEL alkaline phosphatase 96 U/L 38-126 Not Available [facility] (Lab) [address] [place], [address], 05/07/2024 16:36:34 05/07/20 24 05/07/2024 COMPR EHENS CARA METAB OLIC PANEL alanine aminotransfe rase 27 U/L 0-50 Not Available [facility] (Lab) [address] [place], [address], 05/07/2024 16:36:34 05/07/20 24 05/07/2024 COMPR EHENS CARA METAB OLIC PANEL aspartate aminotransfe rase 38 U/L 15-46 Not Available [facility] (Lab) [address] [place], [address], 05/07/2024 16:36:34 05/07/20 24 05/07/2024 COMPR EHENS CARA METAB OLIC PANEL bilirubin, total 0.60 mg/dL 0.20-1 .30 Not Available [facility] (Lab) [address] [place], [address], 05/07/2024 16:36:34 05/07/20 24 05/07/2024 COMPR EHENS CARA METAB OLIC PANEL calcium 9.4 mg/dL 8.4-10 .2 Not Available [facility] (Lab) [address] [place], [address], 05/07/2024 16:36:34 05/07/20 24 05/07/2024 COMPR EHENS CARA METAB OLIC PANEL total protein 7.1 g/dL 6.3-8. 2 Not Available [facility] (Lab) [address] [place], [address], 05/07/2024 16:36:34 05/07/20 24 05/07/2024 COMPR EHENS CARA METAB OLIC PANEL albumin 4.0 g/dL 3.4-5. 0 Not Available [facility] (Lab) [address] [place], [address], 05/07/2024 16:36:34 05/07/20 24 05/07/2024 COMPR EHENS CARA METAB OLIC PANEL globulin 3.1 g/dL 2.6-4. 2 Not Available [facility] (Lab) [address] [place], [address], 05/07/2024 16:36:34 05/07/20 24 05/07/2024 COMPR EHENS CARA METAB OLIC PANEL A/G ratio 1.3 ratio 1.0-2. 0 Not Available [facility] (Lab) [address] [place], [address], 05/07/2024 16:36:34 05/07/20 24 05/07/2024 LIPID PANEL cholesterol 144 mg/dL 140-19 9 NIH MARIELLE NSUS RECOM MENDA TION FOR DALIA STERO L: ADULT CHILD LOW RISK: <200 <170 BORDE RLINE : <200- 239 ----- HIGH RISK: >240 >200 Not Available [facility] (Lab) [address] [place], [address], 05/07/2024 16:36:39 05/07/20 24 05/07/2024 LIPID PANEL triglyceride s 146 mg/dL 0-150 NIH MARIELLE NSUS REPOR T RECOM MENDA TION FOR TRIGL YCERI MARIELLA: ADULT CHILD LOW RISK: <150 ----- BODER LINE: 150-1 99 ----- HIGH RISK: >200 ----- Not Available [facility] (Lab) [address] [place], [address], 05/07/2024 16:36:39 05/07/20 24 05/07/2024 LIPID PANEL HDL cholesterol 29 mg/dL 40- low Not Available [facility] (Lab) [address] [place], [address], 05/07/2024 16:36:39 05/07/20 24 05/07/2024 LIPID PANEL LDL cholesterol, calculated 86 mg/dL 0-130 NIH MARIELLE NSUS REPOR T RECOM MENDA TIONS FOR LDL: ADULT CHILD LOW RISK <130 <110 (OPTI MAL LDL) <100 ----- BORDE RLINE : 130-1 59 ----- HIGH RISK: >160 >130 A TRIGL YCERI DE RESUL T >400 INVAL IDATE S THE CALCU LATIO N FOR LDL FRACT IONAT ION - THE LDL RESUL T WILL NOT BE REPOR LAKEISHA. Not Available [facility] (Lab) [address] [place], [address], 05/07/2024 16:36:39 05/07/20 24 05/07/2024 MAGNE SIUM magnesium 2.3 mg/dL 1.6-2. 3 Not Available [facility] (Lab) [address] [place], [address], 05/07/2024 16:36:42 05/07/20 24 05/07/2024 VITAM IN B12 (SOFIA AUSTIN ) vb12 626 pg/mL 239-93 1 Not Available [facility] (Lab) [address] [place], [address], 05/07/2024 16:57:46 05/07/20 24 05/07/2024 FOLAT E, SERUM /PLAS MA folate 12.7 NG/mL 2.76-2 0.0 Not Available [facility] (Lab) [address] [place], [address], 05/07/2024 16:57:48 05/07/20 24 05/10/2024 HA1C, SEND- OUT TO LABCO RP hemoglobin A1C 9.9 % 4.8-5. 6 high . . Predi abete s: 5.7 - 6.4 Diabe canelo: >6.4 Glyce karthikeyan contr ol for adult s with diabe canelo: <7.0 Perfo rmed at: - [place] [id number] [facility] Lab Direc tor: Kevin portillo PhD, Phone : [phone] Not Available [facility] (Lab) [address] [place], [address], 05/10/2024 07:14:44 05/02/20 24 scapu la, right [facility] [address] [place] [address] [id number] Patien t Name: JUVENAL GARCIA Access ion #: [id number] Sex: M : 1969 3 Dictat ed By: Yady Ma Attend [facility] Physic britton: EVONNE CASTRO [facility] Physic britton: EVONNE CASTRO Exam Date: 2023 11:58 AM Exam Name: XR SCAPUL A RT Admitt ing Diagno sis(es ): CLINIC AL INDICA TION: pain TECHNI QUE: 2 radiog raphic views of the right scapul a were obtain ed. Compar tyler: None FINDIN GS/IMP RESSIO N: There is no eviden ce of acute fractu re or disloc ation. The visual ized joint space is well mainta ined. The alignm ent is anatom ical. There is no radiop aque foreig n body. Electr onical ly Signed by: Yady Ma at 2023 12:08: 46 PM Page 1 [email or web address] [facility] (Imaging) [address] [place], [address], 05/07/2024 09:12:00 05/02/20 24 XR, thora cic spine , 3 view [facility] [address] [place] [address] Patien t Name: JUVENAL GARCIA Access ion #: [id number] Sex: M : 1969 3 Dictat ed By: Vahe Arana Attend [facility] Physic britton: EVONNE CASTRO [facility] Physic britton: EVONNE CASTRO Exam Date: 2023 11:57 AM Exam Name: XR T SPINE 3V Admitt ing Diagno sis(es ): ACCESS ION #: [id number] INDICA TION: pain COMPAR TYLER: None TECHNI QUE:3 views of the thorac ic spine were obtain ed. FINDIN GS: The thorac ic verteb ral alignm ent is normal . The interv ertebr al disc spaces are well-m aintai arnaud. No signif icant facet arthro arnol is noted. Median sterno sarita. No acute fractu re, verteb ral compre ssion deform ity or aggres sive osseou s lesion s. The imaged thorax and abdome n are grossl y unrema rkable . IMPRES MIKA: No acute fractu re. Electr onical ly Signed by: Vahe Arana at 2023 12:35: 42 PM Page [address] ([facility]) [address] [facility], [place], [address], 05/07/2024 09:12:00 05/10/20 XR, knee No observ ation record ed. [email or web address] [facility] [place] [address], [place], [address], 05/10/2024 13:41:54 06/21/20 XR, hip + pelvi s, unila teral No observ ation record ed. [email or web address] [facility] [place] [address], [place], [address], 06/21/2024 12:02:31 07/12/20 24 07/12/2024 CT, abdom en + pelvi s, w/o contr ast No observ ation record ed. [address], [place], [address], 07/15/2024 11:27:52 07/16/20 24 07/16/2024 CT, abdom en + pelvi s, w/o contr ast No observ ation record ed. [address], [place], [address], 07/17/2024 09:02:10 08/11/20 24 08/11/2024 CT, abdom en + pelvi s, w/o contr ast No observ ation record ed. [address], [place], [address], 08/12/2024 09:33:09 Result Notes None recorded. 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 316502919 Active 2017 Not Available [facility] 3 01:10:47 Chronic back pain 327006941 Active 2022 Not Available [facility] 3 01:10:47 Hyperchol esterolem ia 02846861 Active 2017 Not Available [facility] 3 01:10:47 Seborrhei c dermatiti s of scalp 299765707 Active 2022 Not Available [facility] 3 01:10:47 Chronic physical disabilit y 909302593 Active 2018 Not Available [facility] 3 01:10:47 History of deep vein thrombosi s 800200626 Active 2017 Not Available [facility] 3 01:10:47 Heartburn 59467960 Active 2017 Not Available [facility] 3 01:10:47 Ultrasoun d scan abnormal 263883046 Active 2020 Not Available [facility] 3 01:10:47 Hypertrop hy of nasal turbinate s 89452518 Active 2021 Not Available [facility] 3 01:10:47 Sensorine ural hearing loss of bilateral ears 530452013 Active 2021 Not Available [facility] 3 01:10:47 Periphera l venous insuffici ency 31160061 Active 2020 Not Available [facility] 3 01:10:47 Myocardia l infarctio n 44817867 Completed 201705/08/2018 Not Available [facility] 3 01:10:48 Stable angina 098574846 Active 2017 Not Available [facility] 3 01:10:48 End stage renal failure on dialysis 886819773 Active 2019 Not Available [facility] 3 01:10:48 Degenerat ion of lumbar intervert ebral disc 75427839 Active 2018 Not Available [facility] 3 01:10:48 Gastroeso phageal reflux disease without esophagit is 086061864 Active 2017 Not Available [facility] 3 01:10:48 Anemia 012341710 Active 2017 Not Available [facility] 3 01:10:48 Chronic low back pain 875007955 Active 2018 Not Available [facility] 3 01:10:48 Pain in toe 801919091 Active 2018 Not Available [facility] 3 01:10:48 Pain in toe 226013149 Active 2018 Not Available [facility] 3 01:10:48 Right upper quadrant pain 767963638 Active 2020 Not Available [facility] 3 01:10:48 Type 2 diabetes mellitus without complicat ion 449793061 Completed 201701/10/2019 Not Available [facility] 3 01:10:48 Pain in left foot 66009859202 9107 Active 2019 Not Available [facility] 3 01:10:48 Vitamin D deficienc y 38277881 Active 2017 Not Available [facility] 3 01:10:49 Seasonal allergic rhinitis 119289312 Active 2017 Not Available [facility] 3 01:10:49 Sinusitis 40694367 Active 2021 Not Available [facility] 3 01:10:49 Hypertens cara disorder 82933897 Active 2017 Not Available [facility] 3 01:10:49 Osteoarth ritis 465141361 Active 2019 Not Available [facility] 3 01:10:49 Umbilical hernia 392753234 Active 2018 Not Available [facility] 3 01:10:49 Vertigo 582053611 Active 2021 Not Available [facility] 3 01:10:49 Abrasion and/or friction burn of skin 765808265 Active 2018 Not Available [facility] 3 01:10:49 Chronic sinusitis 34117504 Active 2021 Not Available [facility] 3 01:10:49 Multiple benign melanocyt ic nevi 335750211 Active 2017 Not Available [facility] 3 01:10:50 Deep venous thrombosi s of lower extremity 641808576 Active 2022 Not Available [facility] 3 01:10:50 Dizziness 291880288 Active 2017 Not Available [facility] 3 01:10:50 Dysphagia 66205455 Active 2021 Not Available [facility] 3 01:10:50 Obesity 056564020 Active 2017 Not Available [facility] 3 01:10:50 Ketoacido sis due to type 1 diabetes mellitus 755665843 Active 2019 Not Available [facility] 3 01:10:50 Nausea 071225002 Active 2021 Not Available [facility] 3 01:10:50 Congestiv e heart failure 69829754 Active 2017 Not Available [facility] 3 01:10:50 Diabetic periphera l neuropath y 720864063 Active 2017 Not Available [facility] 3 01:10:51 Asymmetri nikos hearing loss 112815785 Active 2021 Not Available [facility] 3 01:10:51 Chronic kidney disease stage 4 418166709 Completed 201707/29/2020 Not Available [facility] 3 01:10:51 Chronic kidney disease stage 5 086663609 Active 2019 Not Available [facility] 3 01:10:51 Uncontrol led type 2 diabetes mellitus 392693542 Completed 201705/16/2019 Aditya Castro MD [address] [facility], [place], [address] , [facility] 4 09:03:03 Gastritis 2008505 Active 2021 Not Available [facility] 3 01:10:51 End-stage renal disease 98347515 Active 2019 Not Available [facility] 3 01:10:51 Type 1 diabetes mellitus 91589208 Active 2018 Not Available [facility] 3 01:10:52 Atrial fibrillat ion 47706077 Active 2017 Not Available [facility] 3 01:10:52 Hyperlipi demia 72256592 Active 2017 Not Available [facility] 3 01:10:52 Heart disease 31311483 Active 2017 Not Available [facility] 3 01:10:52 Hyperpara thyroidis m 43318739 Active 2018 Not Available [facility] 3 01:10:52 Nasal congestio n 65300642 Active 2021 Not Available [facility] 3 01:10:52 Diabetes mellitus 96835461 Active 2017 Not Available [facility] 3 01:10:52 Obstructi ve sleep apnea syndrome 48660346 Active 2018 Not Available [facility] 3 01:10:53 Epigastri c pain 52832897 Active 2021 Not Available [facility] 3 01:10:53 Chronic idiopathi c constipat ion 92241447 Active 2020 Not Available [facility] 3 01:10:53 Corneal abrasion 42100444 Active 2018 Not Available [facility] 3 01:10:53 Dystrophi a unguium 98277544 Active 2018 Not Available [facility] 3 01:10:53 Gout 61363020 Active 2017 Not Available [facility] 3 01:10:53 Chronic renal failure 12108781 Completed 201705/08/2018 Not Available [facility] 3 01:10:54 Skin lesion 18519818 Active 2017 Not Available [facility] 3 01:10:54 Hypertrig lyceridem ia 386301960 Active 2022 Aditya Castro MD [address], [address], [place], [address] , [employer] 3 16:04:08 Chronic constipat ion 967510793 Active 2022 Aditya Castro MD [address], [address], [place], [address] , [employer] 3 16:45:46 Cough 26335323 Active 2022 Aditya Castro MD [address], [address], [place], [address] , [employer] 3 12:45:44 Bronchiti s 82025697 Active 2022 Aditya Castro MD [address], [address], [place], [address] , [employer] 3 09:22:50 Allergic rhinitis 28713877 Active 2022 Aditya Castro MD [address], [address], [place], [address] , [employer] 3 09:28:39 Allergic contact dermatiti s 129817710 Active 2022 Aditya Castro MD [address], [place], [address] , [employer] 3 16:06:02 Tinea cruris 148576934 Active 2022 Aditya Castro MD [address], [place], [address] , [employer] [facility] 3 16:06:15 Acute bacterial sinusitis 39405343 Active 2023 KATIE Chen [address], [address], [place], [address] , [employer] [facility] 4 09:55:25 Ulcer of mouth 88042280 Active 2023 Aditya Castro MD [address], [address], [place], [address] , [place] [facility] [employer] [facility] 4 09:03:52 Onychomyc osis of toenails 881322035 Active 2023 Chris Linda DPM [address], [place], [address] , [employer] [facility] 4 12:24:55 Folliculi tis 83585728 Active 2023 Aditya Castro MD [address], [place], [address] , [employer] [facility] 4 10:26:36 Pain of right knee joint 60191338930 4100 Active 2023 Aditya Castro MD [address], [address], [place], [address] , [employer] [facility] 4 10:31:07 Bleeding of ear canal 417059676 Active 2023 Aditya Castro MD [address], [place], [address] , [employer] [facility] 4 10:40:38 Acute left otitis media 083413366 Active 2023 Rohit Jessica MD [address], [place], [address] , [employer] [facility] 4 16:04:39 Thoracic back pain 277566367 Active 2023 Aditya Castro MD [address], [place], [address] , [place] [employer] [facility] 4 16:28:59 Pain of right shoulder blade 465593370 Active 2023 Aditya Castro MD [address], [place], [address] , [facility] 4 16:30:04 Degenerat ion of thoracolu ar intervert ebral disc 92858163 Active 2023 Aditya Castro MD [address], [place], [address] , [facility] 4 16:30:54 Hypothyro idism 71038638 Active 2023 Aditya Castro MD [address], [place], [address] , [facility] 4 16:34:29 Uncontrol led type 2 diabetes mellitus 651945199 Active 2023 Aditya Castro MD [address], [place], [address] , [facility] 4 09:03:03 Bilateral osteoarth ritis of knees 18715525993 9107 Active 2023 Sofia Newby null, [place] - [facility] 4 11:42:16 Pain of left knee joint 09808017705 4107 Active 2023 LESLY Gambino [address], [place], [address] , [facility] 4 13:42:14 Pain in right hip joint 82226893145 9102 Active 2023 Lisa Lopez CNA null, [place] [facility] 4 11:11:43 Trochante margarita bursitis of right hip 46161862367 9100 Active 2023 LESLY Gambino [address], [place], [address] , [facility] 4 12:00:40 Gallstone 476530291 Active 2023 Aditya Castro MD [address], [place], [address] , [employer] [facility] [employer] 4 11:21:33 Right flank pain 943088966 Active 2023 Aditya Castro MD [address], [place], [address] , [facility] [employer] [facility] [employer] 4 11:29:38 Kidney stone 77148937 Active 2023 Aditya Castro MD [address], [place], [address] , [employer] [facility] [employer] 4 11:31:01 Notes:blood clots, coronary artery disease, head trauma or injury, kidney disease, seizures, use of blood thinners, balance problems, numbness or tingling, loss of memory, swelling in legs, shortness of breath, muscle pain, back/neck pain, swollen or painful joints, excessive thirst, dry mouth, sleep apnea, wears glasses Some problems listed in Document: #[id number] could not be added to this patient's chart. Please review this document and add these problems to the patient's chart manually as needed. Problem Notes None recorded. Procedures Surgical History Date Name Laterality Status Provider Name and Address Organization Details Recorded Time 05/02/20 24 Nail Debridement completed Chris Linda DPM [address], [place], [address], [facility] [employer] [facility] [employer] 05/20/2024 09:31:13 03/11/20 24 Nail Debridement completed Chris Linda DPM [address], [place], [address], [employer] [facility] [employer] 03/11/2024 12:35:50 03/11/20 24 Wound Care-Podiatry completed Chris Linda DPM [address], [place], [address], [facility] [employer] [facility] [employer] 03/11/2024 12:34:57 01/08/20 24 Wound Care-Podiatry completed Chris Linda DPM [address], [place], [address], [facility] [email or web address] 01/08/2024 12:26:31 12/25/19 24 Medicare Wellness CPT Code, subsequent completed Beth Willis RN [facility] [employer] [facility] 12/25/2023 15:24:37 11/06/19 24 Medicare Wellness CPT Code, subsequent cancelled Beth Willis RN [facility] [employer] 11/03/2023 10:10:00 01/08/20 22 SEPTOPLASTY (SURG) completed Not Available [facility] 10/19/2022 01:16:48 01/22/20 21 Cardiac Cath completed Not Available [facility] 023 01:06:21 reduction of nasal turbinate completed Not Available [facility] 10/19/2022 01:06:21 procedure on heart completed Lisa Lopez CNA [place] [employer] [facility] [employer] 05/10/2024 11:11:45 Imaging Results Imaging Date Name Status LastModified by Organiz ation Details LastModified Time 05/02/2024 scapula, right completed [email or web address] [place] [address] (Imaging) [address] [place], [address], 05/07/2024 09:12:00 05/02/2024 XR, thoracic spine, 3 view completed [email or web address] (Imaging) [address] [place], [address], 05/07/2024 09:12:00 05/10/2024 XR, knee completed [email or web address] [facility] [place] [address], [place], [address], 05/10/2024 13:41:54 06/21/2024 XR, hip + pelvis, unilateral completed [email or web address] [facility] [place] [address], [place], [address], 06/21/2024 12:02:31 07/12/2024 CT, abdomen + pelvis, w/o contrast completed [email or web address] [place] [address] [place], [place] [address], [place], [address], 07/15/2024 11:27:52 07/16/2024 CT, abdomen + pelvis, w/o contrast completed [address], [place], [address], 07/17/2024 09:02:10 08/11/2024 CT, abdomen + pelvis, w/o contrast completed [address], [place], [address], 08/12/2024 09:33:09 Procedure Notes None recorded. Medical Equipment None Reported. Allergies Allergen ID Allergen Name Allergen Category Reaction Reaction Severity Criticality Documentation Date Start Date Code Code System Note Provider Name and Address Organization Details Recorded Time 1834 Iodinated contrast media (substanc e) medicatio n rash severe Not available 10/19/2022 45783 2004 SNOMED Not Available [facility] 3 01:16:23 1835 Brilinta medicatio n rash severe Not available 10/19/2022 14339 36 RxNorm Not Available [facility] 3 01:16:23 1836 allopurin ol medicatio n other severe Not available 10/19/2022 519 RxNorm Not Available [facility] 3 01:16:23 Medications Name Sig Start Date [...] mg by injectio n route. 2023 active [facility]: [id number] Not Available Not Available Not [...] saturation in Arterial blood by Pulse oximetry Provider Name and Address Organization Details Last Updated DateTime 171.45 cm 40.3 kg/m2 654680. 36 g 97.2 [degF] 71 /min 99 % 99 % Lucinda Fletcher RN [facility] [employer] [facility] 09:09:21 Date Recorded Respiratory rate Systolic blood pressure Diastolic blood pressure Provider Name and Address Organization Details Last Updated DateTime 05/07/2024 22 /min 140 mm[Hg] 80 mm[Hg] Aditya Castro MD [address] [facility] [facility] [address], [place], [address], [facility] [employer] [facility] 05/07/2024 09:28:57 Date Recorded Body height Body mass index (BMI) Body weight Provider Name and Address Organization Details Last Updated DateTime 05/10/2024 177.8 cm 37.4 kg/m2 880836.61 g Lisa John, HOMEOPATHIC DOCTOR [facility] [employer] 05/10/2024 11:09:01 Date Recorded Body height Body mass index (BMI) Body weight Body temperature Heart rate Oxygen saturation Oxygen saturation in Arterial blood by Pulse oximetry Systolic blood pressure Diastolic blood pressure Provider Name and Address Organization Details Last Updated DateTime 177.8 cm 38 kg/m2 689432. 98 g 98.4 [degF] 70 /min 99 % 99 % 148 mm[Hg] 80 mm[Hg] Mnotana Gil [facility] [employer] [facility] 15:51:21 Date Recorded Respiratory rate Provider Name a il Address Organization Details Last Updated DateTime 05/21/2024 20 /min Lisa Gonzáles [address] [facility] [facility] [address], [place], [address], [facility] [employer] 05/21/2024 16:17:14 Date Recorded Body height Body mass index (BMI) Body weight Provider Name and Address Organization Details Last Updated DateTime 06/21/2024 177.8 cm 37.9 kg/m2 924385.39 g Lisa John, HOMEOPATHIC DOCTOR [facility] 06/21/2024 11:11:01 Date Recorded Body height Body mass index (BMI) Body weight Body temperature Heart rate Oxygen saturation Oxygen saturation in Arterial blood by Pulse oximetry Systolic blood pressure Diastolic blood pressure Provider Name and Address Organization Details Last Updated DateTime 177.8 cm 38 kg/m2 554371. 19 g 97.3 [degF] 72 /min 97 % 97 % 150 mm[Hg] 78 mm[Hg] Lucinda Fletcher RN [facility] [employer] [facility] 11:26:31 Date Recorded Respiratory rate Provider Name a nd Address Organization Details Last Updated DateTime 07/15/2024 22 /min Lisa Gonzáles [address] [facility], [facility] [address], [place], [address], [place] [email or web address] 07/15/2024 12:05:38 Social History Question Answer Notes LastModified by Organization Details LastModified Time Tobacco Smoking Status Never Smoker Not Available [facility] 10/19/2022 01:04:37 Do You Have An Advance Directive? No MIGRATION.0301 [id number] Information not available 10/19/2022 What Is Your Level Of Alcohol Consumption? None MIGRATION.0301 090236 Information not available 10/19/2022 Are You Blind Or Do You Have Difficulty Seeing? No MIGRATION.0301 [id number] Information not available 10/19/2022 Is Blood Transfusion Acceptable In An Emergency? Yes Information not available 12/07/2023 What Is Your Level Of Caffeine Consumption? Occasional MIGRATION.0301 [id number] Information not available 10/19/2022 How Much Tobacco Do You Chew? None MIGRATION.0301 171447 Information not available 10/19/2022 What Is Your Code Status? Full Code Information not available 12/07/2023 In The 14 Days Before Symptom Onset, Have You Had Close Contact With A Laboratory-confi rmed COVID-19 While That Case Was Ill? No MIGRATION.0301 [id number] Information not available 10/19/2022 In The 14 Days Before Symptom Onset, Have You Had Close Contact With A Person Who Is Under Investigation For COVID-19 While That Person Was Ill? No MIGRATION.0301 315281 Information not available 10/19/2022 Are You Deaf Or Do You Have Serious Difficulty Hearing? No MIGRATION.0301 [id number] Information not available 10/19/2022 What Type Of Diet Are You Following? CARDIAC And Renal MIGRATION.0301 806254 Information not available 10/19/2022 Which Illicit Or Recreational Drugs Have You Used? NONE MIGRATION.030 554770 Information not available 10/19/2022 Do You Or Have You Ever Used E-cigarettes Or Vape? Never Used Electronic Cigarettes MIGRATION.[id number] Information not available 10/19/2022 What Is The Highest Grade Or Level Of School You Have Completed Or The Highest Degree You Have Received? [id number] 2 Years MIGRATION.030 123943 Information not available 10/19/2022 What Is Your Occupation? DISABLED MIGRATION.030 746041 Information not available 10/19/2022 Have There Been Any Changes To Your Family Or Social Situation? No Information not available 12/07/2023 Are There Any Guns Present In Your Home? No MIGRATION.030 001382 Information not available 10/19/2022 Do You Use Insect Repellent Routinely? No Information not available 12/07/2023 Where Do You Live? SingleLevelHouse Information not available 12/07/2023 Advance Directive- Providers Has Reviewed Directive And Consents To Follow Them (insert Provider Name With Any Objectives In Notes Field) No MIGRATION.[id number] Information not available 10/19/2022 Presence Of Domestic [...] Do You Have A Medical Power Of Grill Prep Cook? No Information not available 12/07/2023 What Was The Date Of Your Most Recent Tobacco Screening? 12/25/2023 [email or web address] Information not available 12/25/2023 Do You Have Any Pets? Yes Information not available 12/07/2023 What Is Your Relationship Status? Single MIGRATION.030 617794 Information not available 10/19/2022 Do You Use Your Seat Belt Or Car Seat Routinely? Yes MIGRATION.030 198099 Information not available 10/19/2022 Do You Have Smoke And Carbon Monoxide Detectors In Your Home? Yes Information not available 12/07/2023 Are You Passively Exposed To Smoke? No Information not available 12/07/2023 Do You Or Have You Ever Used Smokeless Tobacco? Never Used Smokeless Tobacco MIGRATION.030 679545 Information not available 10/19/2022 Are There Any Smokers In Your House? No Information not available 12/07/2023 Do You Feel Stressed (tense, Restless, Nervous, Or Anxious, Or Unable To Sleep At Night)? [id number] MIGRATION.030956242 Information not available 10/19/2022 Do You Use Sunscreen Routinely? No Information not available 12/07/2023 Have You Recently Traveled Abroad? No MIGRATION.030 055715 Information not available 10/19/2022 Are You Currently In School? No MIGRATION.030 546144 Information not available 10/19/2022 Sex: Unknown Functional Status Question Answer Note LastModified by Organizat ion Details LastModified Time Do you have difficulty walking or climbing stairs? No MIGRATION.[id number] 26 Information not available 10/19/2022 Do you have difficulty doing errands alone? No MIGRATION.79997397 26 Information not available 10/19/2022 Do you have difficulty dressing or bathing? No MIGRATION.43715274 26 Information not available 10/19/2022 What is your exercise level? Occasional MIGRATION.[id number] 26 Information not available 10/19/2022 Mental Status Question Answer Note LastModified by Organizat ion Details LastModified Time Do you have difficulty concentrating, remembering or making decisions? No MIGRATION.[id number] 6 Information not available 10/19/2022 Family History Relationship Description Onset Age of this Age Resolved Age Notes LastModified by Organization Details LastModified Time Father Heart disease MIGRATION.199 [id number] Not available 10/19/2022 01:06:25 Father Hypertensive disorder MIGRATION.653 [id number] Not available 10/19/2022 01:06:25 Notes:cancer-mother NO ENT H ISTORY Medical History Condition Response SLEEP APNEA N MRSA N ALLERGIES/HAYFEVER N HEART ARRHYTHMIA Y LUNG DISEASE/DISORDER N INSOMNIA N HISTORY OF DRUG ABUSE N RADIATION / CHEMOTHERAPY N COPD N HIGH CHOLESTEROL / HYPERLIPIDEMIA Y HYPERTHYROIDISM N BLOOD DISEASES N EAR OR HEARING PROBLEMS N HYPOTHYROIDISM N SHINGLES N DEPRESSION (INCLUDING POST ) N HAVE YOU BEEN HOSPITALIZED OR SEEN IN [facility] ER IN THE PAST YEAR ? N STROKE/TIA [...] DISEASE N SLEEP DISORDER N PAIN Y HEADACHES/MIGRAINES N SEIZURES/EPILEPSY N GI PROBLEMS Y CHF N PACEMAKER [...] quadrivalent, PF 3 completed BERNARDO Reddy Jerardo [place] [employer] 07/03/2023 11:25:39 pneumococcal polysaccharide PPV23 0 completed Not Available [facility] 10/19/2022 01:16:16 Tdap 0 completed Not Available [facility] 10/19/2022 01:16:16 Influenza, split virus, quadrivalent, PF 9 completed Not Available [facility] 10/19/2022 01:16:16 Influenza, split virus, quadrivalent, PF 2 completed Not Available [facility] 10/19/2022 01:16:16 Influenza, split virus, quadrivalent, PF 1 completed Not Available [facility] 10/19/2022 01:16:16 Past Encounters Encounter ID Performer Location Encounter Start Date Encounter Closed Date Diagnosis/Indication Diagnosis SNOMED-CT Code Diagnosis ICD10 Code [id number] [facility] [address] [address] 10/27/2020 00:00:00 10/27/2020 10:48:24 [id number] [facility] [address] [place] [address] 03/08/2021 00:00:00 03/08/2021 17:34:39 [id number] _ATHENA_M IGRATION_ DEFAULT_1 _1 , 03/22/2021 00:00:00 03/22/2021 20:53:26 [id number] [facility] [address] [place] [address] 06/08/2021 00:00:00 06/09/2021 09:19:54 [id number] [facility] [address] [place] [address] 06/22/2021 00:00:00 06/22/2021 16:14:11 [id number] [facility] [address] [place] [address] 06/29/2021 00:00:00 06/29/2021 12:04:58 [id number] [facility] [address] [place] [address] 07/22/2021 00:00:00 07/22/2021 10:59:05 [id number] [facility] [address] [place] [address] 09/09/2021 00:00:00 09/09/2021 17:59:48 [id number] [facility] [address] [place] [address] 10/05/2021 00:00:00 10/05/2021 16:51:40 [id number] [facility] [place] [address] [place] [address] 10/12/2021 00:00:00 10/12/2021 16:03:48 [id number] [facility] [place] [address] [place] [address] 11/18/2021 00:00:00 11/18/2021 15:39:06 [id number] _ATHENA_M IGRATION_ DEFAULT_1 _1 , 12/20/2021 00:00:00 01/15/2022 22:33:55 [id number] [facility] [place] [address] [place] [address] 12/28/2021 00:00:00 12/28/2021 11:10:02 [id number] [facility] [place] [address] [place] [address] 01/18/2022 00:00:00 01/18/2022 16:24:34 [id number] [facility] [place] [address] [place] [address] 01/25/2022 00:00:00 01/25/2022 15:00:07 [id number] [facility] [place] [address] [place] [address] 02/17/2022 00:00:00 02/17/2022 15:06:30 [id number] [facility] [place] [address] [facility] [place] [address] 03/29/2022 00:00:00 03/29/2022 10:58:26 [id number] [facility] [place] [address] [place] [address] 05/12/2022 00:00:00 05/12/2022 14:21:01 [id number] _ATHENA_M IGRATION_ DEFAULT_1 _1 , 05/16/2022 00:00:00 05/16/2022 16:50:12 [id number] [facility] [place] [address] [facility] [place] [address] 07/13/2022 00:00:00 07/13/2022 17:28:54 [id number] [facility] [place] [address] [facility] [place] [address] 09/06/2022 00:00:00 09/06/2022 15:23:[id number] [address] 10/11/2022 00:00:00 10/11/2022 17:27:53 [id number] Aditya Castro MD [address] [address] 11/01/2022 09:46:21 11/01/2022 10:14:11 [id number] Aditya Castro MD [address] [address] 11/08/2022 15:47:51 11/08/2022 16:30:48 Vitamin D deficiency 17717526 E55.9 Gout 00807908 M10.9 Hyperparathyroidism 6699 9008 E21.3 Uncontroll ed type 2 diabetes mellitus 497664077 E11.65 Hypertriglyceridemia 302 111804 E78.2 Hyperlipidemia 14798044 E78.5 Chronic constipation 236 844065 K59.09 Obesity 979181101 E66.9 [id number] Aditya Castro MD [address] [address] 01/23/2023 09:08:48 01/23/2023 09:38:23 Bronchitis 36996804 J40 Cough 61174082 R05.9 Chronic ki dney disease stage 5 978294759 N18.5 Allergic rhinitis 580556 04 J30.9 Vitamin D deficiency 347 43388 E55.9 [id number] Aditya Castro MD [address] [address] 06/27/2023 15:52:59 06/27/2023 16:15:54 Allergic contact dermatitis 076150267 L23.9 Tinea cruris 370026217 B 35.6 Administra tion of influenza vaccine 80949776 Z23 Chronic low back pain 27 6494915 M54.59 Gout 89925444 M10.9 [id number] Aditya Castro MD [address] [address] 07/10/2023 15:50:39 07/10/2023 16:20:39 Vitamin D deficiency 10786729 E55.9 Gout 15123856 M10.9 Hyperparathyroidism 6699 9008 E21.3 Uncontroll ed type 2 diabetes mellitus 345104924 E11.65 Hypertriglyceridemia 302 167523 E78.2 Hyperlipidemia 59104022 E78.5 Chronic constipation 236 823483 K59.09 Obesity 225338703 E66.9 Bronchitis 34667362 J40 [id number] KATIE Chen [address] [address] 12/07/2023 09:26:05 12/07/2023 11:06:01 Acute bacterial sinusitis 75755137 J01.90 [id number] Aditya Castro MD [address] [address] 12/25/2023 15:06:36 12/25/2023 16:45:08 Gout 69590623 M10.9 Vitamin D deficiency 347 58233 E55.9 Hyperparathyroidism 6699 9008 E21.3 Uncontroll ed type 2 diabetes mellitus 306884746 E11.65 Hypertriglyceridemia 302 264465 E78.2 Hyperlipidemia 20073866 E78.5 Chronic constipation 236 621198 K59.09 Obesity 249364093 E66.9 Bronchitis 11672995 J40 Adult heal th examination 828720567 Z00.00 Screening for disorder 611345471 Z13.9 Ulcer of mouth 65937152 K12.1 Screening for malignant neoplasm of prostate 511044911 Z12.5 [id number] Chris Linda DPM [facility] Pod[facility] [place] [address] [place] [address] 01/08/2024 11:55:29 01/11/2024 12:25:06 Onychomycosis of toenails 266846959 B35.1 Blister of toe without infection 61798206 S90.424A Diabetic p eripheral neuropathy 327010041 E11.40 Dystrophia unguium 14914 009 L60.3 [id number] Aditya Castro MD [address] [place] [address] 02/15/2024 10:01:48 02/15/2024 10:47:11 Gout 57643645 M10.9 Vitamin D deficiency 347 63490 E55.9 Hyperparathyroidism 6699 9008 E21.3 Uncontroll ed type 2 diabetes mellitus 608381883 E11.65 Hypertriglyceridemia 302 345202 E78.2 Hyperlipidemia 72280285 E78.5 Chronic constipation 236 513289 K59.09 Obesity 972246610 E66.9 Bronchitis 15365269 J40 Folliculitis 48626994 L7 3.9 Seborrheic dermatitis of scalp 671426945 L21.0 Pain of ri ght knee joint 0789975094 53118 M25.561 Bleeding of ear canal 30 7184139 H92.22 [id number] Rohit Jessica MD [facility] E[facility] [place] [address] [place] [address] 02/15/2024 15:35:10 02/16/2024 12:44:58 Acute left otitis media 053700794 H66.92 [id number] Chris Linda DPM [facility] [place] [address] [place] [address] 03/11/2024 12:07:37 03/12/2024 16:35:57 Blister of foot without infection 8072130 S90.821A Blister of toe without infection 18960519 S90.425A Diabetes mellitus 169056 09 E13.9 Diabetic p eripheral neuropathy 516758707 E11.40 Dystrophia unguium 61257 009 L60.3 [id number] Aditya Castro MD [facility] [address] 04/16/2024 16:08:23 04/16/2024 17:22:18 Thoracic back pain 424167587 M54.6 Pain of ri ght shoulder blade 248236030 M25.511 Degenerati on of thoracolumbar intervertebral disc 63668674 M51.35 Hypothyroidism 06390987 E03.9 Obesity 334458656 E66.9 End stage renal failure on dialysis 985256514 N18.6 Chronic low back pain 27 1465729 M54.59 [id number] Chris Linda DPM [facility] [place] [address] [place] [address] 05/02/2024 10:29:22 05/20/2024 11:32:52 Onychomycosis of toenails 307169494 B35.1 Peripheral venous insufficiency 52561773 I87.2 Dystrophia unguium 66702 009 L60.3 Abrasion a nd/or friction burn of skin 132228867 T14.8XXA Diabetic p eripheral neuropathy 546363494 E11.40 [id number] Aditya Castro MD [address] [address] 05/07/2024 09:01:36 05/07/2024 09:40:15 Gout 21167477 M10.9 Vitamin D deficiency 347 39358 E55.9 Hyperparathyroidism 6699 9008 E21.3 Uncontroll ed type 2 diabetes mellitus 454539651 E11.65 Hypertriglyceridemia 302 435890 E78.2 Hyperlipidemia 32402056 E78.5 Chronic constipation 236 051241 K59.09 Obesity 436300428 E66.9 Pain of ri ght knee joint 5636284853 71726 M25.561 Screening for malignant neoplasm of prostate 938588277 Z12.5 Chronic back pain 754017 002 G89.29 Screening colonoscopy 44 5936943 Z12.11 [id number] LESLY Gambino [facility] [place] [address] [place] [address] 05/10/2024 10:46:13 05/10/2024 11:48:23 Pain of right knee joint 3287364159 47565 M25.561 Bilateral osteoarthritis of knees 6373471929 81828 M17.0 Pain of le ft knee joint 4076744424 47057 M25.926 [id number] Aditya Castro MD [address] [address] 05/21/2024 15:45:57 05/21/2024 16:21:32 Gout 33732958 M10.9 Vitamin D deficiency 347 31830 E55.9 Uncontroll ed type 2 diabetes mellitus 361970478 E11.65 Hypertriglyceridemia 302 250489 E78.2 Hyperlipidemia 46131655 E78.5 Chronic constipation 236 942584 K59.09 Obesity 077026469 E66.9 Pain of ri ght knee joint 9052334379 53312 M25.561 Chronic back pain 737369 002 G89.29 [id number] LESLY Gambino [facility] [place] [address] [facility] [address] [place] [address] 06/21/2024 11:06:53 06/21/2024 11:57:45 Bilateral osteoarthritis of knees 5884768033 91818 M17.0 Pain of ri ght knee joint 1066763664 92091 M25.561 Pain of le ft knee joint 0561723365 92111 M25.562 Pain in ri ght hip joint 8450718870 23369 M25.551 Trochanter ic bursitis of right hip 0177344325 02705 M70.61 [id number] Aditya Castro MD [facility] [address] [address] 07/15/2024 10:53:35 07/15/2024 12:16:54 Chronic constipation 739627223 K59.09 Chronic back pain 085166 002 G89.29 Obesity 726624089 E66.9 [facility]en [facility] 766992308 Z76.89 Gallstone 309668247 K80. 20 Right flank pain 9227090 09 R10.9 Kidney stone 54852412 N2 0.0 Impaired mobility 846862 05 Z74.09 Health Concerns Section Related Observation LastModified by Organization Detai ls LastModified Time None Recorded Concern Status LastModified by Organization Details LastModified Time None Recorded Advance Directives Directive N: Payers Encounter Date Sequence Insurance Name Policy Number Policy Ge Covered Member ID Ge Member ID Guarantor Name 05/07/2024 2 [place]ARE OR MEDICARE REPLACEMENT PRIMARY) Juvenal Daigle [id number] Juvenal Daigle 05/07/2024 1 [facility] (MEDICARE REPLACEMENT/AD VANTAGE - PPO) [id number] Juvenal Vargasbe [id number] Juvenal Vargasbe 05/10/2024 2 [place]ARE OR MEDICARE REPLACEMENT PRIMARY) Juvenal Vargasbe [id number] Juvenal Sambe 05/10/2024 1 [facility] (MEDICARE REPLACEMENT/AD VANTAGE - PPO) [id number] Juvenal Vargasbe [id number] Juvenal Newcombe 05/21/2024 2 [place] OR MEDICARE REPLACEMENT PRIMARY) Juvenal Vargasbe [id number] Juvenal Newcombe 05/21/2024 1 [facility] (MEDICARE REPLACEMENT/AD VANTAGE - PPO) [id number] Juvenal Vargasbe [id number] Juvenal Vargasbe 06/21/2024 2 [place] OR MEDICARE REPLACEMENT PRIMARY) Juvenal Vargasbe [id number] Juvenal Vargasbe 06/21/2024 1 [facility] (MEDICARE REPLACEMENT/AD VANTAGE - PPO) [id number] Juvenal Vargasbe [id number] Juvenal Vargasbe 07/15/2024 2 [place] OR MEDICARE REPLACEMENT PRIMARY) Juvenal Vargasbe [id number] Juvenal Vargasbe 07/15/2024 1 [facility] (MEDICARE REPLACEMENT/AD VANTAGE - PPO) [id number] Juvenal Vargasbe [id number] Juvenal Daigle Notes Date Note Type Note Provider Name and Address Organization Details Recorded Time 05/07/2024 text/html Pt is here for f /u on his x-ray and annual exam. Doing overall well. Denies any problem with meds. Denies any new concern. Pt is f/u with Pain clinic for his chronic back pain and he will be getting MRI back with them. Pt has not seen Ortho for his chronic Rt knee pain yet.Pt was prescribed Saxenda in the past, but his insurance did not approve it. Pt is f/u with Cardio, Nephro, Endo and ENT for his chronic conditions. Pt is getting labs with them every 1-3 months too.Pt is on Peritoneal dialysis for his CKD V and doing well with it. Pt is seeing Nephro for this every month and they are doing regular labs for him. Pt is also f/u with Nephro at [facility] for kidney transplant team.Pt is f/u with Endo for his DM and hyperparathyroidism.Pt has seen Derm at [facility] for his multiple moles and no concerns with it.Pt has h/o Gout and was on Allopurinol in the past and he got acute kidney failure with it. Pt was than started on Uloric and Colchicine for it, but somehow it was stopped/not approved by his insurance. Pt has seen Rheumat in the past for this. Pt needs to be on Uloric and Colchicine for his Gout as he can not take Allopurinol due to his other conditions.Pt says he is not working since 04/06 due to his chronic conditions. Pt says he tried to go back to work in 10/08 for couple weeks, and couldn't do it. Since than, he has not worked. Aditya Castro MD [address] [place] [address], [place] [address], [place], [address], [place] - [facility] [employer] 05/07/2024 09:36:08 05/10/2024 text/html The patient is a 53-year-old male who presents with bilateral knee pain. He states it has been ongoing for a couple of years now. Denies any specific trauma or injury to either knee. His main complaint is pain but also has some giving way particularly the right worse than left knee. He states if he tries to go up and down stairs or stand from a sitting position occasionally he will get sharp stabbing pain as it causes his knee to give way. At the end of a busy day he has throbbing and aching both knees that keeps him awake at night. Today he states his pain is about a 5 on a scale of 1-10 denies any trauma or injury no effusion or swelling no erythema heat or other signs of infection no locking or catching but does report significant crepitation most of his pain is localized to the anterior portion of the knees right worse than left. 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 Despite activity modification and time his symptoms continue getting worse with time as well he comes in today for initial evaluation treatment of bilateral knee pain right worse than left as described. A new past medical history sheet was reviewed and signed on the intake sheet of today's date drug allergies current medications family social history previous surgical history 10 point review of systems was reviewed and discussed in detail today with the patient. LESLY Gambino [address], [place], [address], [employer] 05/10/2024 13:42:57 05/21/2024 text/html Pt is here for f /u on his annual labs. Doing overall well. Denies any problem with meds. Denies any new concern. Pt is f/u with Pain clinic for his chronic back pain and he will be getting MRI back with them. Pt is f/u with Ortho for his chronic b/l knee pain and got steroid shot with them.Pt was prescribed Saxenda in the past, but his insurance did not approve it. Pt is f/u with Cardio, Nephro, Endo and ENT for his chronic conditions. Pt is getting labs with them every 1-3 months too.Pt is on Peritoneal dialysis for his CKD V and doing well with it. Pt is seeing Nephro for this every month and they are doing regular labs for him. Pt is also f/u with Nephro at [facility] for kidney transplant team.Pt is f/u with Endo for his DM and hyperparathyroidism.Pt has seen Derm at [facility] for his multiple moles and no concerns with it.Pt has h/o Gout and was on Allopurinol in the past and he got acute kidney failure with it. Pt was than started on Uloric and Colchicine for it, but somehow it was stopped/not approved by his insurance. Pt has seen Rheumat in the past for this. Pt needs to be on Uloric and Colchicine for his Gout as he can not take Allopurinol due to his other conditions.Pt says he is not working since 04/06 due to his chronic conditions. Pt says he tried to go back to work in 10/08 for couple weeks, and couldn't do it. Since than, he has not worked. Aditya Castro MD [address], [place], [address], [employer] 05/21/2024 16:20:25 06/21/2024 text/html The patient retu rns for [...] the groin with weight-bearing. LESLY Gambino [address] [facility], [facility] [address], [place], [address], [place] - [facility] [employer] 06/21/2024 12:03:04 07/15/2024 text/html A[facility]:ED fuv. C/o Rt sided [...] Endo and Cardio regularly. Aditya Castro MD [address] [place] [address], [facility] [address], [place], [address], [place] [facility] [place] [facility] [employer] 07/15/2024 12:12:12
--- OUTSIDE RECORDS SUMMARY | 2024-08-18 13:01 | XMS_ITS | CONTINUITY OF CARE DOCUMENT ---
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 Michael Ortega MD Coronary artery disease active Hamlet guzman MD Shortness of breath active Hamlet Ortega MD Dyspnea on exertion active Hamlet Ortega MD Chest pain-type to be determined active Bayron Ortega MD Diabetes, Type 1 active Hamlet Ortega MD Hyperlipidemia active Hamlet Ortega MD HTN essential active Hamlet Ortega MD Sleep apnea, obstructive active Hamlet cantu MD Acute deep venous thrombosis of leg, right active Hamlet Ortega MD Hypertension active ? Hamlet Ortega MD Coronary Heart Disease active ? 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 GFR <15 active Hamlet Ortega MD Valve Surgery active Hamlet Ortega MD (Stat us post) ENCOUNTERS Date Type Provider Location Encounter Diag nosis - In-person encounter Office Visit Hamlet Ortega MD [place] [facility] C [facility]:Valve SurgeryCKD stage ESRD on dialysis GFR <15 - In-person encounter Office Visit Hamlet Ortega MD [place] [facility] - In-person encounter Office Visit Hamlet Ortega MD [facility] Office - In-person encounter Office Visit Hamlet Ortega MD [facility] OverweightAortic insufficiency - In-person encounter Office Visit Hamlet Ortega MD [place] [facility] - In-person encounter Office Visit Hamlet Ortega MD [place] [facility] - In-person encounter Office Visit Hamlet Ortega MD [place] [facility] - In-person encounter Office Visit Hamlet Ortega MD [place] [facility] - In-person encounter Office Visit Hamlet Ortega MD [place] [facility] - In-person encounter Office Visit Hamlet Ortega MD [place] [facility] - In-person encounter Office Visit Hamlet Ortega MD [place] [facility] - In-person encounter Office Visit Hamlet Ortega MD [facility] - In-person encounter Office Visit Hamlet Ortega MD [place] [facility] - In-person encounter Office Visit Hamlet Ortega MD [place] [facility] - In-person encounter Office Visit Hamlet Ortega MD [place] [facility] - In-person encounter Office Visit Hamlet Ortega MD [place] [facility] - In-person encounter Office Visit Hamlet Ortega MD [place] [facility] Dizziness - In-person encounter Office Visit Hamlet Ortega MD [place] [facility] - In-person encounter Office Visit Hamlet Ortega MD [facility] Office - In-person encounter Office Visit Hamlet Ortega MD [place] [facility] - In-person encounter Office Visit Hamlet Ortega MD [place] [facility] Family History of Hypertension:Coronary artery diseaseShortness of breathDyspnea on exertionChest pain-type to be determinedDiabetes, Type 1HyperlipidemiaHTN essentialSleep apnea, obstructiveAcute deep venous thrombosis of leg, rightHypertensionCoronar y Heart Disease VITAL SIGNS Date Observation Value Provider blood pressure, diastolic 101 mm[Hg] [facility] blood pressure, systolic 157 mm[Hg] Vannahayden garay [place] oxygen saturation, oximetry 96 % [facility] pulse rate 122 /min [facility] blood pressure, cuff size regular [facility] Body Mass Index (Ratio) 38.62 kg/m2 [facility] weight in kilograms E&M 122.11 kg [facility] on [facility] weight E&M 269.2 [lb_av] [facility] height E&M 70 [in_i] [facility] height in centimeters E&M 177.[address] [facility] Body Mass Index (Ratio) 38.16 kg/m2 Michael Ortega MD pulse rate 71 /min Marva Whipple blood pressure, diastolic 71 mm[Hg] Tavia Whippel blood pressure, systolic 147 mm[Hg] Antonio olmstead [place] oxygen saturation, oximetry 98 % Marva Posley respiratory rate E&M 15 /min Marva Posley blood pressure, cuff size regular Tavia fitzgerald [place] weight E&M 266 [lb_av] Marva Posley height E&M 70 [in_i] Marva Posley Body Mass Index (Ratio) 38.31 kg/m2 Galen Nath blood pressure, cuff size regular Ja rret blood pressure, diastolic 90 mm[Hg] Ja rret blood pressure, systolic 175 mm[Hg] Adri ret pulse rate 79 /min Omari y oxygen saturation, oximetry 98 % Omari respiratory rate E&M 18 /min Omari weight E&M 267 [lb_av] Omari y height E&M 70 [in_i] Omari y Body Mass Index (Ratio) 37.88 kg/m2 Michael Ortega MD blood pressure, diastolic 81 mm[Hg] Marija Connelly blood pressure, systolic 151 mm[Hg] Nadine Connelly oxygen saturation, oximetry 98 % Saniya Connelly pulse rate 77 /min Saniya Connelly weight E&M 264 [lb_av] Saniya Connelly blood pressure, cuff size large An tami Connelly height E&M 70 [in_i] Saniya Connelly Body Mass Index (Ratio) 38.16 kg/m2 Michael Ortega MD blood pressure, cuff size regular Alexander rret blood pressure, diastolic 79 mm[Hg] Ja rret 2022/10/03 blood pressure, systolic 148 mm[Hg] Jar ret pulse rate 79 /min Omari respiratory rate E&M 12 /min Omari oxygen saturation, oximetry 97 % Omari weight E&M 266 [lb_av] Omari y height E&M 70 [in_i] Omari y Body Mass Index (Ratio) 37.59 kg/m2 Michael Ortega MD blood pressure, cuff size large Alexander blood pressure, diastolic 95 mm[Hg] Ja blood pressure, systolic 160 mm[Hg] Adri [facility] pulse rate 75 /min Omari respiratory rate E&M 12 /min Omari oxygen saturation, oximetry 98 % Omari weight E&M 262 [lb_av] Omari height E&M 70 [in_i] Omari y Body Mass Index (Ratio) 39.74 kg/m2 Michael Ortega MD blood pressure, diastolic 65 mm[Hg] Glo [facility] blood pressure, systolic 129 mm[Hg] Lavern [facility]edu blood pressure, diastolic 65 mm[Hg] isaiah Ferrera blood pressure, systolic 129 mm[Hg] She hong Ferrera pulse rate 79 /min Miriam Ferrera respiratory rate E&M 20 /min Miriam Ferrera oxygen saturation, oximetry 97 % Miriam Ferrera blood pressure, cuff size regular isaiah Ferrera weight E&M 277 [lb_av] Miriam Ferrera height E&M 70 [in_i] Miriam Ferrera Body Mass Index (Ratio) 38.59 kg/m2 Michael Ortega MD blood pressure, diastolic 83 mm[Hg] St izaguirre Satnam blood pressure, systolic 155 mm[Hg] Wilfredo Hay oxygen saturation, oximetry 97 % Nida Satnam respiratory rate E&M 16 /min Nida Nadege susan pulse rate 70 /min Nida Satnam weight E&M 269 [lb_av] Nida Satnam height E&M 70 [in_i] Nida Satnam blood pressure, diastolic 92 mm[Hg] Sa ra Salcido blood pressure, systolic 170 mm[Hg] Amisha a Saclido respiratory rate E&M 18 /min Nina Si ms oxygen saturation, oximetry 95 % Nina Salcido pulse rate 78 /min Nina Salcido blood pressure, cuff size regular Sa ra Saclido height E&M 70 [in_i] Nina Salcido Body Mass Index (Ratio) 43.04 kg/m2 Michael Ortega MD blood pressure, diastolic 69 mm[Hg] Li nkLogic blood pressure, systolic 140 mm[Hg] Lavern kLogic blood pressure, diastolic 69 mm[Hg] Sa ra Salcido blood pressure, systolic 140 mm[Hg] Amisha a Salcido oxygen saturation, oximetry 96 % Nina Salcido respiratory rate E&M 19 /min Nina Si ms pulse rate 58 /min Nina Salcido blood pressure, cuff size regular Sa ra Salcido weight E&M 300 [lb_av] Nina Salcido height E&M 70 [in_i] Nina Salcido Body Mass Index (Ratio) 41.89 kg/m2 Michael Ortega MD blood pressure, cuff size regular Cy maddie Holly blood pressure, diastolic 66 mm[Hg] Cy maddie Holly blood pressure, systolic 150 mm[Hg] Aida Holly oxygen saturation, oximetry 96 % Karley Holly pulse rate 60 /min Karley Reese williams respiratory rate E&M 18 /min Karley Holly weight E&M 292 [lb_av] Karley Reese williams height E&M 70 [in_i] Karley Reese williams Body Mass Index (Ratio) 42.18 kg/m2 Michael Ortega MD blood pressure, diastolic 73 mm[Hg] Ra rut Ortega MD blood pressure, systolic 149 mm[Hg] Bayron Ortega MD oxygen saturation, oximetry 96 % Nguyễn Moris respiratory rate E&M 18 /min Terrell spaulding Moris pulse rate 59 /min Nguyễn nolandd weight E&M 294 [lb_av] Nguyễn nolandd height E&M 70 [in_i] Nguyễn nolandd Body Mass Index (Ratio) 41.18 kg/m2 Michael Ortega MD blood pressure, diastolic 79 mm[Hg] Chad perkins Holly blood pressure, systolic 141 mm[Hg] Aida Holly blood pressure, cuff size regular Cy maddie Holly pulse rate 57 /min Karley Reese williams respiratory rate E&M 16 /min Karley Holly oxygen saturation, oximetry 98 % Karley Holly weight E&M 287 [lb_av] Karley Reese williams height E&M 70 [in_i] Karley Terrazasbel l Body Mass Index (Ratio) 38.31 kg/m2 Michael Ortega MD blood pressure, diastolic 77 mm[Hg] Cy ntsole Holly blood pressure, systolic 148 mm[Hg] Aida kathy Holly blood pressure, cuff size regular Cy maddie Holly respiratory rate E&M 16 /min Karley Holly pulse rate 83 /min Karley Mkbel l oxygen saturation, oximetry 97 % Karley Holly weight E&M 267 [lb_av] Karley Mkbel l height E&M 70 [in_i] Karley Mkbel l Body Mass Index (Ratio) 38.16 kg/m2 Michael Ortega MD blood pressure, cuff size regular Cy ntsole Holly blood pressure, diastolic 58 mm[Hg] Cy ntflorecitaa Holly blood pressure, systolic 148 mm[Hg] Aida kathy Holly oxygen saturation, oximetry 98 % Karleykathy Holly respiratory rate E&M 16 /min Karleykathy Holly pulse rate 53 /min Karley Campbel l weight E&M 266 [lb_av] Karley Mkbel l height E&M 70 [in_i] Karley Mkbel l Body Mass Index (Ratio) 37.73 kg/m2 Michael Ortega MD respiratory rate E&M 16 /min Karley Holly blood pressure, cuff size regular Cy ntsole Holly blood pressure, diastolic 62 mm[Hg] Cy nthia Holly blood pressure, systolic 140 mm[Hg] Aida thia Holly oxygen saturation, oximetry 97 % Karley Holly pulse rate 73 /min Karley Mkbel l weight E&M 263 [lb_av] Karley Campbel l height E&M 70 [in_i] Karley Terrazasbel l Body Mass Index (Ratio) 38.16 kg/m2 Michael Ortega MD blood pressure, diastolic, standing 40 mm [Hg] Kimber Godwin blood pressure, systolic, standing 120 mm [Hg] Kimber Connelly blood pressure, diastolic, sitting 50 mm[ Hg] Kimber Connelly blood pressure, systolic, sitting 132 mm[ Hg] Kimber Connelly blood pressure, cuff size large Cr durga Godwin blood pressure, diastolic 50 mm[Hg] Cr durga Connelly blood pressure, systolic 132 mm[Hg] Cry stawilliams Connelly oxygen saturation, oximetry 97 % Kimber Connelly respiratory rate E&M 17 /min Kimber Connelly pulse rate 64 /min Kimber marr weight E&M 266 [lb_av] Kimber marr height E&M 70 [in_i] Kimber Putnam s Body Mass Index (Ratio) 39.45 kg/m2 Michael Ortega MD blood pressure, cuff size regular Cy maddie Holly blood pressure, diastolic 60 mm[Hg] Cy maddie Holly blood pressure, systolic 154 mm[Hg] Aida kathy Holly oxygen saturation, oximetry 98 % Karleykathy Holly respiratory rate E&M 18 /min Karley Holly pulse rate 65 /min Karley Reese l weight E&M 275 [lb_av] Karley Mkbel l height E&M 70 [in_i] Karley Mkbel l Body Mass Index (Ratio) 38.31 kg/m2 Michael Ortega MD oxygen saturation, oximetry 98 % Lolisstity Ab blood pressure, diastolic 70 mm[Hg] Ch astity Ab blood pressure, systolic 142 mm[Hg] Lolis stity Ab pulse rate 66 /min Chastity Ab respiratory rate E&M 16 /min Urielit joanie Berger weight E&M 267 [lb_av] Lolisstity Ab height E&M 70 [in_i] Lolisstity Ab Body Mass Index (Ratio) 37.73 kg/m2 Michael Ortega MD blood pressure, cuff size regular Cy maddie Holly blood pressure, diastolic 58 mm[Hg] Cy maddie Holly blood pressure, systolic 152 mm[Hg] Aida kathy Holly oxygen saturation, oximetry 98 % Karley Holly respiratory rate E&M 16 /min Karleykathy Holly pulse rate 65 /min Karleykathy Terrazasbel l weight E&M 263 [lb_av] Karley Campbel l height E&M 70 [in_i] Karley Campbel l Body Mass Index (Ratio) 38.77 kg/m2 Michael Ortega MD blood pressure, resting Yes Rehana Navas Micheal blood pressure, diastolic 64 mm[Hg] Nisa Manjumegan Burton blood pressure, systolic 154 mm[Hg] Garima Burton oxygen saturation, oximetry 98 % Hai Burton respiratory rate E&M 18 /min Brooke Burton pulse rate 67 /min Hai garcia weight E&M 270.2 [lb_av] Hai hansen height E&M 70 [in_i] Hai garcia ALLERGIES Allergy Name Onset Date Reaction Criticality Status IODINE DYE Low Criticality active BRILINTA Low Criticality active RESULTS Date Observation Value Provider Reference Range Interpretation Location coagulation managed by Pamela Nicole RN Pamela Nicole RN international normalized ratio (INR) 1.9 Pamela Nicole RN Normal coagulation managed by Pamela Nicole RN Pamela Nicole RN international normalized ratio (INR) 3.7 Pamela Nicole RN Normal coagulation managed by Pamela Nciole RN Pamelahayden Nicole RN international normalized ratio (INR) 5.3 Pamela Nicole RN Normal coagulation managed by Moustapha Koehler RN Moustapha Koehler RN international normalized ratio (INR) 4.0 Moustapha Koehler RN Normal coagulation managed by Rayna Rodriguez RN Rayna Rodriguez RN international normalized ratio (INR) 3.5 Rayna Rodriguez RN Normal coagulation managed by Rayna Rodriguez RN Rayna Rodriguez RN international normalized ratio (INR) 2.2 Rayna Rodriguez RN Normal coagulation managed by Robin Villarreal RN international normalized ratio (INR) 1.8 Robin Villarreal RN Normal coagulation managed by Robin Villarreal RN international normalized ratio (INR) 4.1 Robin Villarreal RN Normal coagulation managed by Robin Villarreal RN international normalized ratio (INR) 1.8 Robin Villarreal RN Normal coagulation managed by Robin Villarreal RN international normalized ratio (INR) 1.9 Robin Villarreal RN Normal coagulation managed by Annemarie Connelly RN international normalized ratio (INR) 2.2 Annemarie Connelly RN Normal coagulation managed by Robin Villarreal RN international normalized ratio (INR) 2.5 Robin Villarreal RN Normal coagulation managed by Robin Villarreal RN international normalized ratio (INR) 1.4 Robin Villarreal RN Normal coagulation managed by Robin Villarreal RN international normalized ratio (INR) 1.2 Robin Villarreal RN Normal coagulation managed by Annemarie Connelly RN coagulation managed by Moustapha Koehler RN international normalized ratio (INR) 4.0 Moustapha Koehler RN Normal coagulation managed by Moustapha Koehler RN international normalized ratio (INR) 3.0 Moustapha Koehler RN Normal coagulation managed by Arabella Taylor international normalized ratio (INR) 1.2 Arabella Taylor Normal international normalized ratio (INR) 4.9 Corinne Fox Normal coagulation managed by Moustapha Koehler RN international normalized ratio (INR) 1.6 Moustapha Koehler RN Normal coagulation managed by Robin Villarreal RN international normalized ratio (INR) 3.5 Robin Villarreal RN Normal prothrombin time (patient) 42.0 s Robin Villarreal RN coagulation managed by Annemarie Connelly RN international normalized ratio (INR) 3.6 Annemarie Connelly RN Normal prothrombin time (patient) 43.2 s Annemarie Connelly RN coagulation managed by Robin Villarreal RN international normalized ratio (INR) 4.0 Robin Villarreal RN Normal prothrombin time (patient) 47.9 s Robin Villarreal RN coagulation managed by Robin Villarreal RN international normalized ratio (INR) 2.2 Robin Villarreal RN Normal prothrombin time (patient) 26.3 s Robin Villarreal RN coagulation managed by Robin Villarreal RN international normalized ratio (INR) 1.2 Robin Villarreal RN Normal prothrombin time (patient) 14.5 s Robin Villarreal RN coagulation managed by Robin Villarreal RN international normalized ratio (INR) 1.4 Robin Villarreal RN Normal prothrombin time (patient) 17.1 s Robin Villarreal RN coagulation managed by Annemarie Connelly RN international normalized ratio (INR) 1.8 Annemarie Connelly RN Normal prothrombin time (patient) 21.8 s Annemarie Connelly RN coagulation managed by Annemarie Connelly RN prothrombin time (patient) 16.4 s Annemarie Connelly RN international normalized ratio (INR) 1.4 Annemarie Connelly RN Normal coagulation managed by Annemarie Connelly RN international normalized ratio (INR) 8 Annemarie Connelly RN Normal prothrombin time (patient) 96 s Annemarie Connelly RN coagulation managed by Annemarie Connelly RN international normalized ratio (INR) 2.3 Annemarie Connelly RN Normal prothrombin time (patient) 27.9 s Annemarie Connelly RN coagulation managed by Annemarie Connelly RN international normalized ratio (INR) 3.9 Annemarie Connelly RN Normal prothrombin time (patient) 41.7 s Annemarie Connelly RN coagulation managed by Annemarie Connelly RN international normalized ratio (INR) 3.5 Annemarie Connelly RN Normal coagulation managed by Annemarie Connelly RN international normalized ratio (INR) 2.7 Annemarie Connelly RN Normal prothrombin time (patient) 10.2 s [employer] 9.1-12.0 international normalized ratio (INR) 1.0 [facility] 0.8-1.2 lipoprotein, beta, serum, point, quantitative, calculated 122 mg/dL [facility] 0-99 High very low density lipoproteins 54 mg/dL [facility] 5-40 High HDL cholesterol, serum 34 mg/dL [facility] >39 Low triglyceride, serum, random 268 mg/dL [facility] 0-149 High cholesterol, serum 210 mg/dL [facility] 100-199 High calcium, serum 8.8 mg/dL [facility] 8.7-10.2 carbon dioxide, venous blood 21 mmol/L [facility] 20-29 chloride, serum 103 mmol/L [facility] 96-106 potassium, serum 4.7 mmol/L [facility] 3.5-5.2 sodium, serum 140 mmol/L [facility] [phone]/03/ 21 urea nitrogen/creatini ne ratio, serum 17 [facility] 9-20 eGFR if 26 mL/min/{1.73 _m2} [facility] >59 Low eGFR if not 23 mL/min/{1.73 _m2} [facility] >59 Low creatinine, serum 3.04 mg/dL [facility] 0.76-1.27 High urea nitrogen, blood 53 mg/dL [facility] 6-24 High blood glucose, random 288 mg/dL [facility] 65-99 High basophil count, absolute 0.0 x10E3/uL [facility] 0.0-0.2 Eosinophil Absolute Count 0.2 X10E3/UL [facility] 0.0-0.4 monocyte count, blood, automated 0.8 X10E3/UL [facility] 0.1-0.9 lymphocyte count, blood, automated 1.7 X10E3/UL [facility] 0.7-3.1 Absolute Neutrophils 2.3 X10E3/UL [facility] 1.4-7.0 basophils as percent of blood leukocytes 0 % [employer] Not Estab. eosinophils as percent of blood leukocytes 3 % [employer] Not Estab. monocytes as percent of blood leukocytes 15 % [employer] Not Estab. lymphocytes as percent of blood leukocytes 34 % [employer] Not Estab. neutrophils as percent of blood leukocytes 48 % [employer] Not Estab. platelet count 261 X10E3/UL [facility] [phone]/03/ 21 red blood cell distribution width 13.9 % [facility] 12.3-15.4 mean corpuscular hemoglobin concentration, RBC 32.1 G/DL [facility] 31.5-35.7 mean corpuscular hemoglobin, RBC 28.4 pg [facility] 26.6-33.0 mean corpuscular volume, RBC 88 fL [facility] 79-97 hematocrit, blood 33.6 % [facility] 37.5-51.0 Low hemoglobin, blood 10.8 g/dL [facility] 13.0-17.7 Low erythrocyte (RBC) count 3.80 X10E6/UL [facility] 4.14-5.80 Low leukocyte count, blood 4.9 X10E3/UL [facility] 3.4-10.8 HISTORY OF MEDICATION USE Medication Status Instructions Dates Provider Indications Com ments amlodipine 10 mg tablet active 1 tablet by mouth once a day Hamlet Ortega MD warfarin 3 mg tablet active one tab daily - Except on Mon take 1 1/2 tab Moustapha 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 (4.5 mg) - Annemarie Connelly RN detention anticoagulant therapy warfarin 2 mg tablet completed 1 tab on 01/19, 01/20, 01/21, 01/22 - Robin Villarreal RN levothyroxine 25 mcg tablet active Take 1 tablet by mouth every morning Annemarie Connelly RN warfarin 3 mg tablet completed Take 1 tablet by mouth every evening EXCEPT on Mon and take one half tablet. (1.5 mg) - Moustapha Koehler RN detention anticoagulant therapy warfarin 2 mg tablet completed - Annemarie Connelly RN Vascepa 1 gram capsule active potassium chloride 20 mEq tablet extended release completed - Saniya Connelly metoprolol succinate 50 mg tablet extended release 24 hr active Take 1 tablet by mouth once a day Marva Whipple nifedipine 90 mg tablet extended release 24hr completed Take 1 tablet by mouth once a day TAKE 1 TABLET BY MOUTH EVERY DAY - Saniya Connelly nifedipine 60 mg tablet extended release 24hr completed TAKE 1 TABLET BY MOUTH EVERY DAY - Hamlet Ortega MD losartan 25 mg tablet completed Take 1 tablet by mouth once a day - Saniya Connelly nifedipine 60 mg tablet extended release 24hr completed Take 1 tablet by mouth once a day - Selina Spencerhelga losartan 100 mg tablet completed Take 1 tablet by mouth once a day - Hamlet Ortega MD metoprolol tartrate 25 mg tablet completed 12.5 twice a day - Hamlet Ortega MD ranolazine 500 mg tablet extended release 12 hr completed TAKE 1 TABLET BY MOUTH TWICE DAILY - Saniya Connelly clopidogrel 75 mg tablet completed TAKE 1 TABLET BY MOUTH EVERY DAY - Saniya Connelly Novolog Flexpen U-100 Insulin 200 mg 200 mg active Inject every hour as directed 72.75 units per day Nina Salcido nitroglycerin 0.4 mg tablet, sublingual active 1 tablet under tongue as directed as needed 1 tablet under tongue for chest pain. May repeat every 5 minutes if still having chest pain- to max of 3 tablets per episode. Hamlet Ortega MD Renal-Eliz 0.8 mg tablet active Take 1 tablet by mouth once a day Karley Holly docusate sodium 100 mg capsule active Take 1 capsule by mouth twice a day Karley Holly Medrol (Emanuel) 4 mg tablets,dose pack completed Take as directed - Nida Hay amlodipine-benazep ril 5-10 mg capsule completed - Nida Hay famotidine 40 mg tablet active Take 1 tablet once a day Karley Holly baclofen 10 mg tablet completed Take 1 tablet every eight hours as needed - Nida Hay calcium acetate(phosphat bind) 667 mg tablet active Take 1 tablet once a day Karley Holly TERAZOSIN HCL 2 MG ORAL CAPSULE completed take 1 tab daily - Karley Holly cetirizine 10 mg tablet active Take 1 tablet once a day Karley Holly ASPIRIN 81 TABLET DELAYED RELEASE completed Take 1 tablet once a day - Nida Hay phentermine 30 mg capsule completed 1 by mouth once a day - Nida Hay ezetimibe 10 mg tablet active Take 1 tablet by mouth once a day Karley Holly CYCLOBENZAPRINE HCL 10 MG ORAL TABLET completed as needed - Hamlet Ortega MD colchicine 0.6 mg capsule active 1 tablet three times a week Chastity Ab gemfibrozil 600 mg tablet completed 1 tablet twice a day - Nida Hay ALL DAY ALLERGY 10 MG ORAL CAPSULE active 1 tablet once a day Chastity Ab calcitriol 0.25 mcg capsule active 1 capsule three times a week Chastity Ab furosemide 80 mg tablet completed Take 2 tablet twice a day 120mg twice a day - Saniya Connelly atorvastatin 80 mg tablet active Take 1 tablet once a day Karley Holly ranolazine 500 mg tablet extended release 12 hr completed Take 1 tablet by mouth twice a day - Nusrat Henry ergocalciferol (vitamin D2) 1,250 mcg (50,000 unit) capsule active 1 capsule once a week Hai Burton Uloric 40 mg tablet completed 1 tablet once a day - Nida Hay BASAGLAR KWIKPEN SOLUTION PEN-INJECTOR completed 40-50 units as night - Karley Holly HUMALOG MIX 50/50 SUSPENSION completed 12 units at meal time followed by sliding scale - Chastity Ab VIAGRA 50 MG ORAL TABLET completed 1 tab every 24 hours - Chastity Ab PREDNISONE 10 MG ORAL TABLET completed as needed - Karley Holly nitroglycerin 0.4 mg tablet, sublingual completed Dissolve 1 tablet under tongue as needed - Hamlet Ortega MD CARVEDILOL 25 MG ORAL TABLET completed one tab twice daily - Karley Holly TERAZOSIN HCL 2 MG ORAL CAPSULE completed 1 tab every 12 hours - Hamlet Ortega MD SIMVASTATIN 40 MG ORAL TABLET completed ONE TAB. DAILY - Chastity Ab CLONIDINE HCL 0.1 MG ORAL TABLET completed ONE TAB. TWICE DAILY - Kalrey Holly clopidogrel 75 mg tablet completed Take 1 tablet by mouth once a day - Nina Salcido isosorbide mononitrate 30 mg tablet extended release 24 hr completed Take 1 tablet by mouth once a day - Saniya Connelly ISOSORBIDE MONONITRATE 60MG ER TABS completed TAKE 1 TABLET BY MOUTH DAILY - Karley Holly ASPIRIN ADULT LOW DOSE 81 MG ORAL TABLET DELAYED RELEASE completed One Tab By Mouth Daily - Lolisstity Ab HYDRALAZINE HCL 100 MG ORAL TABLET completed 1 tab every 8 hours - Karley Holly RANITIDINE HCL 300 MG ORAL TABLET completed 1 tablet once a day - Hai Burton ELIQUIS 5 MG ORAL TABLET completed one tablet twice daily - Rehana Vasques RN SOCIAL HISTORY Date Observation Value Provider alcohol use no Hamlet Light passive cigarette sm kat exposure no Hamlet Ortega MD smoking status Never smoker Hamlet Ortega MD valve surgery, hx of Valve Surgery, Hx of Hamlet Ortega MD alcohol use no Hamlet Light passive cigarette sm kat exposure no Hamlet Ortega MD smoking status Never smoker Hamlet Ortega MD alcohol use no Hamlet Light passive cigarette sm kat exposure no Hamlet Ortega MD smoking status Never smoker Hamlet Ortega MD alcohol use no Saniya Godwin passive cigarette sm kat exposure no Saniya Godwin smoking status Never smoker Saniya Godwin social history reviewed E&M revi ewed - no changes required Hamlet Ortega MD social history reviewed E&M revi ewed - no changes required Hamlet Ortega MD social history E&M Marital Statu s: C claudioen: 3 O ccupation: Disabled Smoking History: P atient has never smoked. Hamlet Ortega MD social history reviewed E&M revi ewed - no changes required Hamlet Ortega MD smoking status Never smoker Miriam Ferrera social history E&M Marital Statu s: C claudioen: 3 O ccupation: Disabled Smoking History: P atient has never smoked. Hamlet Ortega MD social history reviewed E&M revi ewed - no changes required Hamlet Ortega MD passive cigarette sm kat exposure no Nida Hay smoking status Never smoker Nida Hay social history reviewed E&M revi ewed - no changes required Hamlet Ortega MD social history reviewed E&M revi ewed - no changes required Hamlet Ortega MD social history E&M Marital Statu s: C asher: 3 O ccupation: Disabled Smoking History: P atient has never smoked. Hamlet Ortega MD social history reviewed E&M revi ewed - no changes required Hamlet Ortega MD passive cigarette sm kat exposure no Karley Holly smoking status Never smoker Karley rosas social history E&M Marital Statu s: C asher: 3 O ccupation: Disabled Smoking History: P atient has never smoked. Hamlet Ortega MD social history reviewed E&M revi ewed - no changes required Hamlet Ortega MD passive cigarette sm kat exposure no Nguyễn Subramanian smoking status Never smoker Nguyễn acevedo social history E&M Marital Statu s: Michael asher: 3 O ccupation: Disabled Smoking History: P atient has never smoked. Hamlet Ortega MD social history reviewed E&M revi ewed - no changes required Hamlet Ortega MD passive cigarette sm kat exposure no Karley Avni smoking status Never smoker Karley rosas social history E&M Marital Statu s: Michael sterling: 3 O ccupation: Disabled Smoking History: P atient has never smoked. Hamlet Ortega MD social history reviewed E&M revi ewed - no changes required Hamlet Ortega MD passive cigarette sm kat exposure no Karley Avni smoking status Never smoker Karley rosas social history E&M Marital Statu s: Michael sterling: 3 O ccupation: Disabled Smoking History: P atient has never smoked. Hamlet Ortega MD social history reviewed E&M revi ewed - no changes required Hamlet Ortega MD passive cigarette sm kat exposure no Karley Holly smoking status Never smoker Karley rosas social history E&M Marital Statu s: Michael sterling: 3 O ccupation: Disabled Smoking History: P atient has never smoked. Hamlet Ortega MD social history reviewed E&M revi ewed - no changes required Hamlet Ortega MD passive cigarette sm kat exposure no Karley Holly smoking status Never smoker Karley rosas social history E&M Marital Statu s: Michael sterling: 3 O ccupation: Disabled Smoking History: P atient has never smoked. Hamlet Ortega MD social history reviewed E&M revi ewed - no changes required Hamlet Ortega MD smoking status Never smoker Kimber Sifuentes ams social history E&M Marital Statu s: C stevensondren: 3 O ccupation: Disabled Smoking History: P atient has never smoked. Hamlet Ortega MD social history reviewed E&M revi ewed - no changes required Hamlet Ortega MD alcohol use no Karley Mkbel l passive cigarette sm kat exposure no Karley Holly smoking status Never smoker Karleyhayden rosas social history E&M Marital Statu s: C hildren: 3 O ccupation: Disabled Smoking History: P atient has never smoked. Hamlet Ortega MD social history reviewed E&M revi ewed - no changes required Hamlet Ortega MD alcohol use no Harriett Ab passive cigarette sm kat exposure no Harriett Ab smoking status Never smoker Harriett Hogu e social history E&M Marital Statu s: C stevensondren: 3 O ccupation: Disabled Smoking History: P atient has never smoked. Hamlet Ortega MD social history reviewed E&M revi ewed - no changes required Hamlet Ortega MD alcohol use no Karley Hugh l passive cigarette sm kat exposure no Karley Holly smoking status Never smoker Karley Arnel rosas alcohol use no Hamlet Light passive cigarette sm kat exposure no Hamlet Ortega MD social history reviewed E&M revi ewed - no changes required Hamlet Ortega MD social history E&M Marital Statu s: C stevensondren: 3 O ccupation: Disabled Smoking History: P atient has never smoked. Hamlet Ortega MD appendectomy, history of Appendectomy, Hx of Hamlet Ortega MD smoking status Never smoker Hai Schroeder FUNCTIONAL STATUS Date Observation Value Provider HRA, CV Assess/Plan, Angina (inactive) Management Plan continue current therapy Hamlet Ortega MD HRA, CV Assess/Plan, Angina (inactive) Management Plan continue current therapy Hamlet Ortega MD HRA, CV Assess/Plan, Angina (inactive) Management Plan continue current therapy Hamlet Ortega MD HRA, CV Assess/Plan, Angina (inactive) Management Plan continue current therapy Hamlet Ortega MD HRA, CV Assess/Plan, Angina (inactive) Management Plan continue current therapy Hamlet Ortega MD HRA, CV Assess/Plan, Angina (inactive) Management Plan continue current therapy Hamlet Ortega MD HRA, CV Assess/Plan, Angina (inactive) Management Plan continue current therapy Hamlet Ortega MD HRA, CV Assess/Plan, Angina (inactive) Management Plan continue current therapy Hamlet Ortega MD HRA, CV Assess/Plan, Angina (inactive) Management Plan continue current therapy Hamlet Ortega MD HRA, CV Assess/Plan, Angina (inactive) Management Plan schedule PCI Hamlet Ortega MD HRA, CV Assess/Plan, Angina (inactive) Management Plan continue current therapy Hamlet Ortega MD HRA, CV Assess/Plan, Angina (inactive) Management Plan continue current therapy Hamlet Ortega MD FAMILY HISTORY Family Member Condition Father Family History of Co ronary Artery Disease: Father Family History of Hy pertension: INSURANCE PROVIDERS Payer name Policy type / Coverage type [employer] party ID [id number] COMPLETE CARE [id number] (PPO C-SNP) Xspand insurance Stevie [id number] HEALTHCARE AND FAMILY SERVICES Medicaid 3 [id number] ADVANCE DIRECTIVES Name Date DISCUSSED - NO DECISION MADE TREATMENT PLAN Date Name Performer [id number],S, Hamlet guzman MD [id number],S, Hamlet Ramada n [place] [id number],S, Hamlet Ramada n [place] [id number],S, Hamlet Ramada n [place] [id number],S, Hamlet Ramada n [place] [id number],S, Hamlet Ramada n [place] [id number],S, Hamlet Ramada n [place] [id number],S, Hamlet Ramada n [place] [id number],S, Hamlet Ramada n [place] [id number],S, Hamlet [place] n [place] [id number],S, Hamlet Ramada n [place] [id number],S, Hamlet Ramada n [place] [id number],S, Hamlet Ramada n [place] [id number],C,T he patient is using BiPAP on a regular basis. The patient has been benefiting from therapy and should continue use. Hamlet Ramad[place]gan [place] [id number],S, Hamlet Ramada n [place] [id number],S, Hamlet Ramada n [place] [id number],S, Hamlet Ramada n [place] [id number],S, Hamlet Ramada n [place] [id number],S, Hamlet Ramada n [place] [id number],S, Hamlet Ramada n [place] [id number],S, Hamlet Ramada n [place] [id number],S, Hamlet Ramada n [place] [id number],S, Hamlet Ramada n [place] [id number],S, Hamlet Ramada n [id number],S, Hamlet Ramada n [id number],S, Hamlet Ramada n [id number],S, Hamlet Ramada n [id number],C,T he patient is using CPAP on a regular basis. The patient has been benefiting from therapy and should continue use. Hamlet Ortega MD [id number],B, Hamlet Merle guzman MD [id number],S, Hamlet Loredodewayne guzman MD [id number],B, Hamlet Merle guzman MD [id number],B, Hamlet Merle guzman MD [id number],S, Hamlet Loredodewayne guzman MD [id number],S, Hamlet Loredodewayne guzman MD [id number],B, Hamlet Merle guzman MD [id number],S, Hamlet Bloom n [id number],S,L ast stress 01/08 had some abnormalities that fit with known coronary anatomy. No significant symptoms at this point. Will follow closely, no cath at this point. Patient is encouraged to increase activity as tolerated, particularly exercise in form of walking on treadmill. Hamlet Ortega MD [id number],B, Hamlet Merle guzman MD [id number],S, Hamlet Loredodewayne guzman MD [id number],S, Hamlet Loredodewayne n [id number],C,T he patient is using CPAP on a regular basis. The patient has been benefiting from therapy and should continue use. Hamlet Ortega MD [id number],S, Hamlet guzman MD [id number],S,L ast stress 01/08 had some abnormalities that fit with known coronary anatomy. No significant symptoms at this point. Will follow closely, no cath at this point. Hamlet Ortega MD Cardiology:RPM shows high BP. J ust started amlodipine, will follow and adjust as needed. Hamlet Ortega MD Cardiology:On peritoneal dialysi s Hamlet Ortega MD Cardiology: T he patient is using CPAP on a regular basis. The patient has been benefiting from therapy and should continue use. Hamlet Ortega MD Cardiology:On warfarin Hamlet luther MD Cardiology:S/P AVR Hamlet Ortega MD Cardiology:S/P CABG Hamlet guzman MD Cardiology Hamlet Ortega MD Cardiology Hamlet Ortega MD Cardiology aHmlet Ortega MD Cardiology Hamlet Ortega MD Cardiology Halmet Ortega MD Cardiology Hamlet Ortega MD Cardiology:The patie nt is using CPAP on a regular basis. The patient has been benefiting from therapy and should continue use. Hamlet Ortega MD Cardiology:S/P AVR. C heck ECHO Hamlet Ortega MD Cardiology:Add amlodipine 10mg. Hamlet Ortega MD Cardiology Hamlet Ortega MD Cardiology:Exam ok, but history c/w fluid retention. He is on PD. May have fluid in abdomen. Told him to try higher glucose dialysate to pull off more water. W ill see in 1 month and check an ECHO then to see if EF has improved. [facility] [place]. Hamlet Ortega MD Cardiology Hamlet Ortega MD Cardiology Hamlet Ortega MD Cardiology Hamlet Ortega MD Cardiology Hamlet Ortega MD Cardiology:S/P AVR Hamlet Ortega MD Cardiology Hamlet Ortega MD Cardiology Hmalet Ortega MD Cardiology Hamlet Ortega MD Cardiology Hamlet Ortega MD Cardiology Hamlet Ortega MD Cardiology Hamlet Ortega MD Cardiology Hamlet Ortega MD Cardiology Hamlet Ortega MD Cardiology Hamlet Ortega MD Cardiology Hamlet Ortega MD Cardiology Hamlet Ortega MD Cardiology Hamlet Ortega MD Cardiology Hamlet Ortega MD Electrophysiology Hamlet Ortega MD Electrophysiology:Th e patient is using BiPAP on a regular basis. The patient has been benefiting from therapy and should continue use. Hamlet Ortega MD Electrophysiology Hamlet Ortega MD Electrophysiology Hamlet Ortega MD Electrophysiology Hamlet Ortega MD Electrophysiology Hamlet Ortega MD Cardiology Hamlet Ortega MD Cardiology Hamlet Ortega MD Cardiology Hamlet Ortega MD Cardiology Hamlet Ortega MD Cardiology Hamlet Ortega MD Cardiology Hamlet Ortega MD Cardiology Hamlet Ortega MD Cardiology Hamlet Ortega MD Cardiology Hamlet Ortega MD Cardiology:The patie nt is using CPAP on a regular basis. The patient has been benefiting from therapy and should continue use. Hamlet Ortega MD Cardiology Hamlet Ortega MD Cardiology Hamlet Ortega MD Cardiology Hamlet Ortega MD Cardiology Hamlet Ortega MD Cardiology Hamlet Ortega MD Cardiology Hamlet Ortega MD Cardiology Hamlet Ortega MD Cardiology Hamlet Ortega MD Cardiology follow up :Last stress 01/08 had some abnormalities that fit with known coronary anatomy. No significant symptoms at this point. Will follow closely, no cath at this point. Patient is encouraged to increase activity as tolerated, particularly exercise in form of walking on treadmill. Hamlet Ortega MD Cardiology follow up Hamlet cantu MD Cardiology follow up Hamlet cantu MD Cardiology follow up Hamlet cantu MD Cardiology follow up :The patient is using CPAP on a regular basis. The patient has been benefiting from therapy and should continue use. Hamlet Ortega MD Cardiology follow up Hamlet cantu MD Cardiology follow up :Last stress 01/08 had some abnormalities that fit with known coronary anatomy. No significant symptoms at this point. Will follow closely, no cath at this point. Hamlet Ortega MD Cardiology Hamlet Ortega MD Cardiology Hamlet Ortega MD Cardiology Hamlet Ortega MD Cardiology Hamlet Ortega MD Cardiology Hamlet Ortega MD Cardiology Hamlet Ortega MD Cardiology:Stress test abnormal. Needs cath again. Hamlet Ortega MD Cardiology follow up Hamlet cantu MD Cardiology follow up Hamlet cantu MD Cardiology follow up :The patient is using CPAP on a regular basis. The patient has been benefiting from therapy and should continue use. Hamlet Ortega MD Cardiology follow up Hamlet cantu MD Cardiology follow up Hamlet cantu MD Cardiology follow up Hamlet cantu MD Cardiology follow up Hamlet cantu MD Cardiology follow up Hamlet cantu MD Cardiology follow up Hamlet cantu MD Cardiology follow up Hamlet cantu MD Cardiology follow up :The patient is using CPAP on a regular basis. The patient has been benefiting from therapy and should continue use. Hamlet Ortega MD Cardiology follow up Hamlet cantu MD Cardiology hospital follow up Ra rut Ortega MD Cardiology hospital follow up [facility] hospital follow up [facility] hospital follow up [facility] follow up [facility] su[facility]q [facility] Cardiology follow up Hamlet cantu MD Cardiology follow up Hamlet cantu MD Cardiology follow up Hamlet cantu MD Cardiology follow up Hamlet cantu MD Cardiology follow up Hamlet cantu MD Cardiology follow up Hamlet cantu MD Cardiology follow up Hamlet cantu MD Cardiology:Mostly positional. Glo shel[place] due to meds and DM. Hamlet Ortega MD Cardiology Hamlet Ortega MD Cardiology Hamlet Ortega MD Cardiology Hamlet Ortega MD Cardiology Hamlet Ortega MD Cardiology Hamlet Ortega MD Cardiology Hamlet Ortega MD Cardiology:Increased SOB. Will c heck ECHO and stress. Hamlet Ortega MD Cardiology follow up Hamlet cantu MD Cardiology follow up Hamlet cantu MD Cardiology follow up Hamlet cantu MD Cardiology follow up Hamlet cantu MD Cardiology Hamlet Ortega MD Cardiology Hamlet Ortega MD Cardiology Hamlet Ortega MD Cardiology Hamlet Ortega MD Cardiology Hamlet Ortega MD Cardiology:Needs cath Hamlte uribe MD Cardiology follow up Hamlet cantu MD Cardiology follow up Hamlet cantu MD Cardiology follow up Hamlet cantu MD Cardiology follow up Hamlet cantu MD Cardiology follow up Hamlet cantu MD Cardiology follow up Hamlet cantu MD Cardiology follow up Hamlet cantu MD Cardiology Hamlet Ortega MD Cardiology Hamlet Ortega MD Cardiology Hamlet Ortega MD Cardiology Hamlet Ortega MD Cardiology Hamlet Ortega MD Date Name Complete Echo PROTHROMBIN TIME WIT H INR Complete Echo B TYPE NATRIURETIC P EPTIDE (BNP) Lipoprotein (a) CRP, high sensitivit y RPM (remote patient monitoring) Cardiac Cath - Left - CNE Stress Regadenoson Complete Echo PROTHROMBIN TIME WIT H INR CBC (INCLUDES DIFF/P LT) LIPID PANEL BASIC METABOLIC PANE L W/EGFR STR - Nuclear Complete Echo HISTORY OF PROCEDURES Procedure Date Procedure Name Provider Procedure Notes S tatus Complex e/m visit add on Hamlet Ortega MD completed Phone Anti-Coag Management Hamlet Ortega MD completed Phone Anti-Coag Management Hamlet Ortega MD completed Phone Anti-Coag Management Hamlet Ortega MD completed Phone Anti-Coag Management Hamlet Ortega MD completed Phone Anti-Coag Management Robin Villarreal RN completed Phone Anti-Coag Management Robin Villarreal RN completed Phone Anti-Coag Management Patrick Almonte MD completed Phone Anti-Coag Management Hamlet Ortega MD completed Complex e/m visit add on Hamlet Ortega MD completed Phone Anti-Coag Management Robin Villarreal RN completed Phone Anti-Coag Management Robin Villarreal RN completed Jacob Ortega MD complete d Phone Anti-Coag Management Hamlet Ortega MD completed Phone Anti-Coag Management Hamlet Ortega MD completed Phone Anti-Coag Management Hamlet Ortega MD completed Phone Anti-Coag Management Hamlet Ortega MD completed Phone Anti-Coag Management Ramirez Newberry MD completed Jacob Connelly RN completed Jacob Newberry MD complete d Jacob Stover MD completed Jacob Newberry MD complete d Protime Robin Villarreal RN completed Jacob Almonte MD complet ed Phone Anti-Coag Management Hamlet Ortega MD completed Jacob Alexis MD complet ed Jacob Ortega MD complete d Protalexander Ortega MD complete d Phone Anti-Coag Management Hamlet Ortega MD completed Protalexander Ortega MD complete d EKG Hamlet Ortega MD complete d EKG Hamlet Ortega MD complete d EKG Hamlet Ortega MD complete d EKG Hamlet Ortega MD complete d Regadenoson, 4 units Hamlet Ortega MD completed Cardiolite, 2 units Hamlet Ortega MD completed SPECT Images Hamlet Ortega MD comple marcelo Stress EKG Hamlet Ortega MD complete d EKG Hamlet Ortega MD complete d
--- OUTSIDE RECORDS SUMMARY | 2024-08-18 13:01 | XMS_ITS | Encounter Summary ---
Author Organization [facility] Address [address] [place] [address] Care Team Providers Care Directory Clerk Name Role Phone Jhonatan Bellamy MD Primary Care Provider [phone] Reason for Visit * Auth/Cert Specialty Diagnoses / Procedures Referred By Contac t Referred To Contact Diagnoses chest pain shortness of breath Referral ID Status Reason Start Date Expiration Date Visits Re quested Visits Authorized [id number] 1 1 Encounter Details Date Type Department Care Team (Latest Contact Info) Description 11/22/2018 7:13 AM CDT - 11/23/2018 6:30 PM CDT Hospital Encounter [facility] 2N TELE/ONCOLOGY [address] [place] [address] Francisco Luque MD [address] [place] [address] Cardiac Catheterization Discharge Disposition: Home or Self Care Social History Tobacco Use Types Packs/Day Years Used Date Smoking Tobacco: Never Assessed Sex and Gender Information Value Date Recorded Sex Assigned at Not on file Gender Identity Not on file Sexual Orientation Not on file documented as of this encounter Last Filed Vital Signs Vital Sign Reading Time Taken Comments Blood Pressure 168/78 11/23/2018 4:17 PM CDT Pulse 71 11/23/2018 4:17 PM CDT Temperature 36.7 ??C (98.1 ??F) 11/23/2018 3:33 PM CD T Respiratory Rate 11 11/23/2018 3:33 PM CDT Oxygen Saturation 98% 11/23/2018 3:33 PM CDT Inhaled Oxygen Concentration - - Weight 119.7 kg (264 lb) 11/22/2018 9:19 AM CDT Height 177.8 cm (5' 10 ) 11/22/2018 9:19 AM CDT Body Mass Index 37.88 11/22/2018 9:19 AM CDT documented in this encounter Discharge Summaries * Miriam Iniguez APRN-CNP - 11/23/2018 11:02 AM CDT Physician Discharge Summary [facility] Patient ID: Juvenal Garvin [id number] 48 year old 1970 Admit date: 11/22/2018 Discharge date and time: 11/23/2018 Admitting Physician: Francisco Luque MD Discharge Physician: SAWYER Carrillo Admission Diagnoses: chest pain shortness of breath Discharge Diagnoses: Coronary Arteriosclerosis Discharged Condition: stable Hospital Course: Patient is a 48 year old male who presented to the office with complaints of chestpain and shortness of breath. He underwent stress testing in office that returned with abnormal results. He was brought in yesterday as an outpatient by Dr Luque and underwent a cardiac cath. Please see Dr Luque's report for full details of procedure. Stent was placed to the RCA without complications. Patient was observed overnight. No acute events noted. He is stable for discharge home today. Significant Diagnostic Studies: see hospital course Treatments: see hospital course Discharge Exam: General: no acute distress Neuro: alert and oriented x 3, moves all extremities well HEENT: normocephalic, atraumatic Lungs: clear to auscultation bilaterally Heart: regular rate & rhythm, no murmurs, rubs, or gallops Abdomen: soft, non-tender, non-distended, bowel sounds present Extremities: no LE edema, palpable peripheral pulses BL, right groin soft no hematoma Disposition: Home Patient Instructions Current Discharge Medication List START taking these medications Instructions Authorizing Provider aspirin 81 MG chew tablet Commonly known as: ASPIRIN Start taking on: 11/24/2018 Take 1 tablet by mouth once daily Miriam Iniguez atorvastatin 80 MG tablet Commonly known as: LIPITOR Quantity Dispensed: 30 tablet Take 1 tablet by mouth at bedtime Miriam Iniguez insulin glargine pen Commonly known as: LANTUS Inject 30 Units subcutaneously at bedtime Miriam Iniguez CONTINUE taking these medications which have NOT CHANGED Instructions Authorizing Provider calcitriol 0.25 MCG capsule Commonly known as: ROCALTROL Take 0.25 mcg by mouth once daily cetirizine 10 MG tablet Commonly known as: ZyrTEC Take 10 mg by mouth once daily clopidogrel 75 MG tablet Commonly known as: plaVIX Take 75 mg by mouth once daily colchicine 0.6 MG tablet Take 0.6 mg by mouth once daily gemfibrozil 600 MG tablet Commonly known as: LOPID Take 600 mg by mouth 2 times daily,before breakfast and supper insulin lispro 100 UNIT/ML pen Commonly known as: HumaLOG;ADMELOG Inject 15 Units subcutaneously 3 times daily with meals Discharge Procedure Orders Why you were hospitalized Order Specific Question Answer Comments Your discharge diagnosis is: Coronary arteriosclerosis [580807] Follow up with Primary Care Provider (PCP) Our records show your Primary Care Provider (PCP) is Jhonatan Bellamy MD. Order Specific Question Answer Comments Follow Up Instructions: Follow up as scheduled. Cardiac (heart-healthy) diet {Cardiac Diet Follow up with provider Order Specific Question Answer Comments Follow Up Instructions: follow up with Dr uLque in 4 weeks. No heavy lifting Do not lift anything over 10 pounds for 2 weeks. No strenuous activity for 2 weeks. May shower daily. No baths, swimming or hot tubs for 2 weeks. Discharge time: GREATER THAN: 30 minutes. Signed: Miriam Iniguez APRN-ROSITA 11/23/2018 11:02 AM documented in this encounter Medications at Time of Discharge Medication Sig Dispensed Refills Start Date End Date aspirin (ASPIRIN) 81 MG chew tablet Take 1 tablet by mouth once daily 11/24/2018 calcitriol (ROCALTROL) 0.25 MCG capsule Take 0.25 [...] by mouth every Monday, Monday & Monday gemfibrozil (LOPID) 600 MG tablet Take 600 mg by mouth 2 times daily,before breakfast and supper isosorbide mononitrate CR 24hr (IMDUR) 30 MG tablet Take 30 mg by mouth once daily isosorbide mononitrate CR 24hr (IMDUR) 60 MG tablet Take 60 mg by mouth once daily nitroGLYCERIN (NITROSTAT) 0.4 MG tablet Dissolve 0.4 mg under the tongue as needed for Angina terazosin (HYTRIN) 2 MG capsule Take 2 mg by mouth once daily traMADol (ULTRAM) 50 MG tablet Take 50 mg by mouth every 8 hours as needed 11/14/2018 atorvastatin (LIPITOR) 80 MG tablet Take 1 tablet by mouth at bedtime 30 tablet 11 11/23/2018 03/07/2019 ELIQUIS 5 MG tablet 11/14/2018 03/07/20 19 hydrALAZINE (APRESOLINE) 50 MG tablet Take 100 mg by mouth 3 times daily 03/07/2019 insulin glargine (LANTUS) pen Inject 30 Units subcutaneously at bedtime 11/23/2018 04/29/2019 insulin lispro (HUMALOG;ADMELOG) 100 UNIT/ML pen Inject 15 Units subcutaneously 3 times daily with meals 03/07/2019 documented as of this encounter Progress Notes * Dali Nash RN - 11/23/2018 6:30 PM CDT Discharged * Kristie Lizama - 11/23/2018 5:48 PM CDT Juvenal awaiting transportation for discharge. Went over paperwork, patient verbalized understanding and signed paperwork. * Dali Nash RN - 11/23/2018 5:25 PM CDT discussed BP and BP meds with ROBERTO Iniguez. Ok to discharge with BP 168/78. * Dali Nash RN - 11/23/2018 9:44 AM CDT Problem: Incision Care Goal: Signs and symptoms of infections are decreased or avoided Outcome: Ongoing Juvenal site is CDI Site assessed VS monitored and recorded * Janee Ruelas RN - 11/23/2018 8:42 AM CDT A Chart Review has been conducted by Case Management. Basic Needs Assessment (BNA) Score: 6 Based on current condition, will patient be able to return to prior living situation? Yes PCP: Jhonatan Bellamy MD Anticipated discharge needs: none Barriers to discharge / additional discharge needs: None noted at time of CM chart review Additional comments: Pt admitted for elective cath with sequential stents placed in RCA Elevated CR 3.04 on admission, this am 2.74 Per nursing assessments: Transportation (who): Natural Resources Professor/Support: Natural Resources Professor/Support Person - Relationship:: Lorne- Brother Natural Resources Professor person: Home/Functional Status: Equipment with patient: None Assistive Devices: None ?. Will continue to follow. For any questions or needs please contact: Sap Bw Architect Name/Phone number: Janee Ruelas RN * Dimitrios Narvaez RN - 11/23/2018 12:50 AM CDT Problem: Incision Care Goal: Signs and symptoms of infections are decreased or avoided Outcome: Ongoing 11/22/18 2330 Precautions Implemented Precautions None * Francisco Luque MD - 11/22/2018 8:13 AM CDT CARDIAC TERRA [place] INDICATIONS PRE PROCEDURE H&P and AUC TOOL History of Present Illness: 48 yr old diabetic male with known CAD and abnormal stress test. Heart Failure: No Stress Test w/in prior 6 months: Nuc Med MPI, Result: Positive, Risk/Extent of Ischemia: Intermediate Home Med List: Prescriptions Prior to Admission Medication Sig Dispense Refill ??? calcitriol (ROCALTROL) 0.25 MCG capsule Take 0.25 mcg by mouth once daily ??? cetirizine (ZYRTEC) 10 MG tablet Take 10 mg by mouth once daily ??? clopidogrel (PLAVIX) 75 MG tablet Take 75 mg by mouth once daily ??? colchicine 0.6 MG tablet Take 0.6 mg by mouth once daily ??? gemfibrozil (LOPID) 600 MG tablet Take 600 mg by mouth 2 times daily,before breakfast and supper ??? insulin lispro (HUMALOG;ADMELOG) 100 UNIT/ML pen Inject 15 Units subcutaneously 3 times daily with meals Anti-Anginal Medication within 2 Weeks: Yes: Beta Garret and Long Acting Nitrates Past Medical & Surgical History Illnesses: No past medical history on file. No past surgical history on file. Allergies Allergen Reactions ??? Iv Contrast [Contrast-Iodinated Agents For Ct/Other] Rash ??? Ticagrelor Rash This patient's prior H&P was reviewed, the patient was examined, and no change has occurred in the patient's condition since the prior H&P was completed. Consent: Risk, benefits and alternatives were discussed with patient and consent for procedure was obtained. Airway: Mallampati III (soft palate, base of uvula visible) ASA Class: {Class 3 - Severe Systemic Disease, Definite Functional Limitations Impression/Cardiac Catheterization Indication(Choose all that apply): Worsening Angina Chest Pain Symptom Assessment: Typical Angina Cardiac Instability: No Procedure Acuity Status: Elective Planned Course of Treatment/Procedure: Coronary angiography and Left Heart Cath Sedation: Fentanyl and Versed Expected Level: Minimal anxiolysis Indication: Sedation is required to allow for performance of procedure. Monitoring: heart rate, awake overnight monitor, continuous pulse oximetry, frequent blood pressure checks,level of consciousness, IV access, constant attendance by RN until patient recovered, and emergencyairway equipment available. Based on the above criteria, I believe that patient meets clinical indications for a cardiac catheterization. rFancisco Luque MD 11/22/2018 8:13 AM documented in this encounter Procedure Notes * Francisco Luque MD - 11/23/2018 3:23 AM CDTAssociated Order(s): CARDIAC CATH [facility] CARDIAC CATHETERIZATION PATIENT: JUVENAL GARVIN MR#: [id number] ADMIT DATE: 11/22/2018 CSN: [id number] PROCEDURE DATE: 11/22/2018 : 1970 PHYSICIAN: Francisco Luque Jr., MD [facility]OM: [facility] REFERRING PHYSICIAN: Francisco Luque Jr., MD PROCEDURE PERFORMED: 1. Left heart catheterization, selective coronary angiography. 2. Sequential stent implantation, right coronary artery. INDICATIONS: A 48-year-old diabetic patient with chronic kidney disease stage 4. The patient has known coronary artery disease with previous stents to the posterior descending branch of the right coronary artery. The patient has recently developed recurrent symptoms. He underwent stress testing, which was abnormal. He was recommended for catheterization to evaluate his previously placed stents as well as for progression of disease. COMPLICATIONS: None. ANESTHESIA: 1% lidocaine local. Conscious sedation with Versed and fentanyl. Total sedation 2 mg Versed, 50 mcg fentanyl. Total sedation time is 30 minutes. DESCRIPTION OF PROCEDURE: After obtaining informed consent, the patient brought to the cardiac catheterization lab in the postabsorptive state. Sedation was instituted with Versed and fentanyl, and trained observer was present throughout the case to monitor the patient under sedation. Sterile prep and drape of the right groin were performed followed by infiltration of 1% lidocaine. A percutaneous Seldinger technique, introducer sheath was placed in right femoral artery. A 5-Chinese #4 Kranthi left coronary catheter was advanced in the left coronary ostium and left coronary arteriograms were performed in multiple projections. This catheter was removed and exchanged for 5-Chinese #4 Kranthi right coronary catheter, was advanced in the right coronary ostium. Right coronary arteriography was performed in multiple projections. This catheter was removed. The decision was made to proceed with intervention and therefore no left ventriculogram was performed to avoid excess dye in this patient with severe kidney disease. The arterial sheath was exchanged for 6-Chinese sheath followed by advancement of a 6-Chinese #4 Kranthi right guide to the right coronary ostium. Next, a 0.014 wire was advanced down the right coronary artery followed by advancement of a 2.5 x 12 mm drug- eluting stent. This was positioned across the distal stenosis and was deployed with multiple inflations. The balloon was removed and replaced with a second 2.5 x 12 mm drug-eluting stent. This was positioned in the mid right coronary across the RV marginal branch. The stent was deployed with multiple inflations as well. The balloon was removed and replaced with a 2.5 x 15 mm drug-eluting stent, which was positioned in the proximal right coronary. This was deployed with multiple inflations as well. The balloon was removed. Angiography was repeated. The guidewire was removed. Final angiograms were performed. The guiding catheter was removed. The arterial sheath was used to perform femoral arteriography, however, the sheath enters at the bifurcation of the common femoral artery, and therefore, it could not be pulled or removed with a closure system. The sheath was sutured in place and will be pulled manually later. CASE DATA: Aortic blood pressure was 169/72. DESCRIPTION OF ANGIOGRAMS: 1. Left main coronary: Left main is a very short, almost dual left main. There is no stenosis of the very short left main. 2. Left anterior descending: Left anterior descending is a moderate-sized vessel, has some mild irregularities with no high-grade or flow-limiting lesions. 3. Circumflex artery: Circumflex artery is a moderate-sized nondominant system. It has some mild irregularities, but again has no high-grade or flow-limiting lesions. 4. Right coronary artery: The right coronary artery is seen to contain previously placed stents in the proximal portion of the posterior descending artery. Injection of contrast reveals an approximately 80% stenosis and mid 90% stenosis and a distal 99% stenosis. 5. Post intervention: Following the sequential stent implantation as described above, final angiography of the right coronary artery reveals no residual stenosis at any site. There was no evidence of dissection. There was brisk VIPUL grade 3 flow throughout the entire right coronary. 6. The previously placed posterior descending stent is widely patent with no restenosis. CONCLUSIONS: 1. No in-stent restenoses, posterior descending branch of right coronary artery. 2. Interval development of high-grade stenoses in the proximal, mid, and distal right coronary. 3. Mild irregularities of the LAD and circumflex with no high-grade or flow- limiting lesions seen. 4. Successful sequential stent implantation, right coronary artery with no residual stenosis, dissection, or thrombus formation with VPIUL grade 3 flow. Thank you for the opportunity to participate in the care of this very pleasant gentleman. FRANCISCO LUQUE JR., MD RPR/MODL #: [id number] cc: Francisco Luque Jr., MD MEDICAL/SURGICAL CARDIAC CATHETERIZATION - DP documented in this encounter Miscellaneous Notes * Significant Event - Kristie Lizama - 11/23/2018 11:31 AM CDT Nursing Hypoglycemia Note Juvenal Garvin [id number] Date of occurrence: 11/23/2018 Time of occurrence: 11:25 Symptoms displayed: Dizzy Interventions performed: 8 oz juice given Repeat testing performed? Yes Post event snack given? Yes Possible precipitating factors: Insulin administration and food intake not synchronized Provider contacted? Yes Provider name: Miriam Iniguez NP Orders received? No Narrative: Patient requested blood sugar be taken, was feeling dizzy. Clinical partner checked blood sugar and it read <31 , then retook it immediately and got a reading of <35 . RN then gavepatient 8 oz of orange juice for patient to drink. Patient drank juice right away, retook blood sugar 15 minutes after initial reading and it was 90. Patient then began to eat lunch tray. Related Lab Values Lab Results Component Value Date/Time [id number] 31 (LL) 11/23/2018 11:19 AM [id number] 469 (HH) 11/22/2018 09:29 PM [id number] 316 (H) 11/22/2018 03:05 PM [id number] 123 (H) 11/22/2018 12:14 PM Lab Results Component Value Date/Time GLUCOSE 195 (H) 11/23/2018 03:25 AM GLUCOSE 45 (LL) 11/22/2018 07:33 AM Last recorded POC Glucose on Doc Flowsheets Glucose Bedside (mg/dL): 35 mg/dL (gave patient 2 orange juices) Last recorded meal intake % Meal Taken: 100 % (11/23/2018 8:00 AM) Active Diet Order Diet DIET DIABETIC CONSIST CARB CARDIAC Pertinent administrations from the [facility] Related Administrations from [facility] (last 12 hours) Date/Time Action User Medication Dose 11/23/18 0819 $ Given HJ insulin aspart (NovoLOG) pen 12 Units 12 Units Kristie Lizama 11/23/2018 documented in this encounter Plan of Treatment Pending Results Name Type Priority Associated Diagnoses Date /Time CARDIAC CATH CONSULT (for Epic Reporting) ECHO Routine 11/22/2018 7:15 AM CDT documented as of this encounter Procedures Procedure Name Priority Date/Time Associated Diagnosis Comments CARDIAC PROCEDURE ORDER 11/27/2018 1:35 AM CDT CARDIAC RHYTHM STRIP ORDER 11/26/2018 9:10 PM CDT GLUCOSE - POINT OF CARE Routine 11/23/2018 2:11 PM CDT GLUCOSE - POINT OF CARE Routine 11/23/2018 12:00 PM CDT GLUCOSE - POINT OF CARE Routine 11/23/2018 11:23 AM CDT GLUCOSE - POINT OF CARE Routine 11/23/2018 11:19 AM CDT GLUCOSE - POINT OF CARE Routine 11/23/2018 7:48 AM CDT HEMOGLOBIN A1C Routine 11/23/2018 3:25 AM CDT Controlled type 2 diabetes mellitus without complication, with long-term current use of insulin (HCC) BASIC METABOLIC PANEL (CALCIUM TOTAL) AM Draw 11/23/2018 3:25 AM CDT 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[place] heart with stable angina pectoris, unspecified vessel or lesion type (HCC) GLUCOSE - POINT OF CARE Routine 11/22/2018 9:29 PM CDT GLUCOSE - POINT OF CARE Routine 11/22/2018 4:55 PM CDT GLUCOSE - POINT OF CARE Routine 11/22/2018 3:05 PM CDT GLUCOSE - POINT OF CARE Routine 11/22/2018 12:14 PM CDT CARDIAC CATH Routine 11/22/2018 12:00 PM CDT GLUCOSE - POINT OF CARE Routine 11/22/2018 9:30 AM CDT BASIC METABOLIC PANEL (CALCIUM TOTAL) STAT 11/22/2018 7:33 AM CDT 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[place] heart with stable angina pectoris, unspecified vessel or lesion type (HCC) CARDIAC CATH CONSULT Routine 11/22/2018 7:15 AM CDT documented in this encounter Results * CARDIAC PROCEDURE ORDER (11/27/2018 1:35 AM CDT) Narrative 11/27/2018 1:35 AM CDT Ordered by an unspecified provider. Scanned Document CARDIAC SERVICES ORD ERABLES * CARDIAC RHYTHM STRIP ORDER (11/26/2018 9:10 PM CDT) Narrative 11/26/2018 9:10 PM CDT Ordered by an unspecified provider. Scanned Document CARDIAC SERVICES ORD ERABLES * (ABNORMAL) GLUCOSE - POINT OF CARE (11/23/2018 2:11 PM CDT) [facility] Glucose WB/POC 192(H) 70 - 106 mg/dL 11/26/2018 10:39 AM CDT [facility] Specimen Type UNKNOWN SAMPLE TYPE 11/26/2018 10:39 AM CDT [facility] Blood BLOOD SPECIMEN / Unknown 11/23/2018 2:11 PM CDT 11/26/2018 10:39 AM CDT Francisco Luque MD LAB - POINT OF CARE ORDERABLES Performing Organization Address [facility] Co de Phone Number [facility] [address] [place] [phone] * GLUCOSE - POINT OF CARE (11/23/2018 12:00 PM CDT) Glucose WB/POC 90 70 - 106 mg/dL 11/23/2018 5:57 PM CDT [facility] Blood BLOOD SPECIMEN / Unknown 11/23/2018 12:00 PM CDT 11/23/2018 5:57 PM CDT Francisco Luque MD LAB - POINT OF CARE ORDERABLES Performing Organization Address [facility] de Phone Number [facility] [address] [place] [phone] * (ABNORMAL) GLUCOSE - POINT OF CARE (11/23/2018 11:23 AM CDT) Glucose WB/POC 35(LL) 70 - 106 mg/dL 11/23/2018 5:57 PM CDT [facility] Blood BLOOD SPECIMEN / Unknown 11/23/2018 11:23 AM CDT 11/23/2018 5:57 PM CDT Francisco Luque MD LAB - POINT OF CARE ORDERABLES Performing Organization Address [facility] Co de Phone Number [facility] [address] [place] [phone] * (ABNORMAL) GLUCOSE - POINT OF CARE (11/23/2018 11:19 AM CDT) Glucose WB/POC 31(LL) 70 - 106 mg/dL 11/23/2018 11:26 AM CDT [facility] Blood BLOOD SPECIMEN / Unknown 11/23/2018 11:19 AM CDT 11/23/2018 11:26 AM CDT Francisco Luque MD LAB - POINT OF CARE ORDERABLES Performing Organization Address [facility] de Phone Number [facility] [address] [place], [place] [phone] * GLUCOSE - POINT OF CARE (11/23/2018 7:48 AM CDT) Glucose WB/POC 81 70 - 106 mg/dL 11/23/2018 11:51 PM CDT [facility] Blood BLOOD SPECIMEN / Unknown 11/23/2018 7:48 AM CDT 11/23/2018 11:51 PM CDT Francisco Luque MD LAB - POINT OF CARE ORDERABLES Performing Organization Address [facility] de Phone Number [facility] [address] [place] [address] * (ABNORMAL) HEMOGLOBIN A1C (11/23/2018 3:25 AM CDT) Hemoglobin A1c 7.5(H) 4.0 - 6.1 % 11/23/2018 4:12 AM CDT [facility] Estimated Average Glucose 169 mg/dL 11/23/2018 4:12 AM CDT [facility] Blood BLOOD SPECIMEN / Unknown Venipuncture / Unknown 11/23/2018 3:25 AM CDT 11/23/2018 3:57 AM CDT Narrative [facility] - 11/23/2018 4:12 AM CDT Attention clinician: ??Reference Range has changed. Francisco Luque MD LAB - CHEMISTRY SUSANNAH LEONE Performing Organization Address [facility] de Phone Number [facility] [address] [place] [address] * (ABNORMAL) BASIC METABOLIC PANEL (CALCIUM TOTAL) (11/23/2018 3:25 AM CDT) Glucose 195(H) 74 - 106 mg/dL 11/23/2018 5:10 AM CDT [facility] Sodium 135(L) 136 - 145 mmol/L 11/23/2018 5:10 AM CDT [facility] Potassium 3.8 3.5 - 5.1 mmol/L 11/23/2018 5:10 AM CDT [facility] Chloride 104 98 - 107 mmol/L 11/23/2018 5:10 AM CDT [facility] CO2 23 23 - 31 mmol/L 11/23/2018 5:10 AM CDT [facility] Calcium 8.3(L) 8.4 - 10.2 mg/dL 11/23/2018 5:10 AM CDT [facility] Anion Gap 8 8 - 16 mmol/L 11/23/2018 5:10 AM CDT [facility] BUN 56(H) 8.4 - 25.7 mg/dL 11/23/2018 5:10 AM CDT [facility] Creatinine 2.74(H) 0.73 - 1.18 mg/dL 11/23/2018 5:10 AM CDT [facility] eGFR by MDRD 25(L) >60 mL/min/1.7 3m2 11/23/2018 5:10 AM CDT [facility] eGFR by MDRD 30(L) >60 mL/min/1.7 3m2 11/23/2018 5:10 AM CDT [facility] Blood BLOOD SPECIMEN / Unknown Venipuncture / Unknown 11/23/2018 3:25 AM CDT 11/23/2018 4:37 AM CDT Francisco Luque MD LAB - CHEMISTRY [facility] Performing Organization Address City/[facility]/ZIP Co de Phone Number [facility] [address] [place], [place] [phone] * (ABNORMAL) GLUCOSE - POINT OF CARE (11/22/2018 9:29 PM CDT) [facility] Glucose WB/POC 469(HH) 70 - 106 mg/dL 11/22/2018 9:35 PM CDT [facility] Blood BLOOD SPECIMEN / Unknown 11/22/2018 9:29 PM CDT 11/22/2018 9:35 PM CDT Narrative [facility] - 11/22/2018 9:35 PM CDT [facility] BLOOD Francisco Luque MD LAB - POINT OF CARE ORDERABLES [facility] [address] [place] [phone] * (ABNORMAL) GLUCOSE - POINT OF CARE (11/22/2018 4:55 PM CDT) Glucose WB/POC 427(H) 70 - 106 mg/dL 11/26/2018 10:06 AM CDT [facility] Specimen Type UNKNOWN SAMPLE TYPE 11/26/2018 10:06 AM CDT [facility] Blood BLOOD SPECIMEN / Unknown 11/22/2018 4:55 PM CDT 11/26/2018 10:06 AM CDT Francisco Luque MD LAB - POINT OF CARE ORDERABLES Performing Organization Address City/[facility]/ZIP Co de Phone Number [facility] [address] [place] [phone] * (ABNORMAL) GLUCOSE - POINT OF CARE (11/22/2018 3:05 PM CDT) Glucose WB/POC 316(H) 70 - 106 mg/dL 11/22/2018 5:37 PM CDT [facility] Blood BLOOD SPECIMEN / Unknown 11/22/2018 3:05 PM CDT 11/22/2018 5:37 PM CDT Francisco Luque MD LAB - POINT OF CARE ORDERABLES Performing Organization Address [facility] Co de Phone Number [facility] [address] [place] [phone] * (ABNORMAL) GLUCOSE - POINT OF CARE (11/22/2018 12:14 PM CDT) Glucose WB/POC 123(H) 70 - 106 mg/dL 11/22/2018 12:15 PM CDT [facility] Blood BLOOD SPECIMEN / Unknown 11/22/2018 12:14 PM CDT 11/22/2018 12:15 PM CDT Francisco Luque MD LAB - POINT OF CARE ORDERABLES Performing Organization Address [facility]/ZIP Co de Phone Number [facility] [address] [place] [phone] * CARDIAC CATH PROCEDURE (11/22/2018 12:00 PM CDT) 11/22/2018 12:0 0 PM CDT Narrative Procedure Note Francisco Luque MD - 11/23/2018 3:23 AM CDT [facility] CARDIAC CATHETERIZATION PATIENT: JUVENAL GRAVIN MR#: [id number] ADMIT DATE: 11/22/2018 CSN: [id number] PROCEDURE DATE: 11/22/2018 :1970 PHYSICIAN: Francisco Luque Jr., MD ROOM: [facility] REFERRING PHYSICIAN: Francisco Luque Jr., MD PROCEDURE [...] sheath wasplaced in right femoral artery. A 5-Chinese #4 Kranthi left coronary catheterwas advanced in the left coronary ostium and left coronary arteriograms were performed in multiple projections. This catheter was removed and exchangedfor 5-Chinese #4 Kranthi right coronary catheter, was advanced in the right coronary ostium. Right coronary arteriography was performed in multiple projections. This catheter was removed. The decision was made to proceedwith intervention and therefore no left ventriculogram was performed to avoid excess dye in this patient with severe kidney disease. The arterial sheathwas exchanged for 6-Chinese sheath followed by advancement of a 6-Chinese #4Judkins right guide to the right coronary [...] descending artery. Injection of contrast reveals an [id number]% stenosis and mid 90% stenosis and a [...] gentleman. FRANCISCO LUQUE JR., MD RPR/MODL #: [id number] cc: Francisco Luque Jr., MD MEDICAL/SURGICAL CARDIAC CATHETERIZATION - DP Francisco Luque MD CARDIAC SERVICES ORD ERABLES [facility] [facility] * GLUCOSE - POINT OF CARE (11/22/2018 9:30 AM CDT) Glucose WB/POC 70 70 - 106 mg/dL 11/22/2018 9:33 AM CDT [facility] Specimen Type CAPILLARY BLOOD 11/22/2018 9:33 AM CDT [facility] Blood BLOOD SPECIMEN / Unknown 11/22/2018 9:30 AM CDT 11/22/2018 9:33 AM CDT Francisco Luque MD LAB - POINT OF CARE ORDERABLES [facility] [address] [place] [address] * (ABNORMAL) BASIC METABOLIC PANEL (CALCIUM TOTAL) (11/22/2018 7:33 AM CDT) Glucose 45(LL) 74 - 106 mg/dL 11/22/2018 8:04 AM CDT [facility] Sodium 139 136 - 145 mmol/L 11/22/2018 8:04 AM CDT [facility] Potassium 4.6 3.5 - 5.1 mmol/L 11/22/2018 8:04 AM CDT [facility] Chloride 108(H) 98 - 107 mmol/L 11/22/2018 8:04 AM CDT [facility] CO2 21(L) 23 - 31 mmol/L 11/22/2018 8:04 AM CDT [facility] Calcium 9.1 8.4 - 10.2 mg/dL 11/22/2018 8:04 AM CDT [facility] Anion Gap 10 8 - 16 mmol/L 11/22/2018 8:04 AM CDT [facility] BUN 65(H) 8.4 - 25.7 mg/dL 11/22/2018 8:04 AM CDT [facility] Creatinine 3.04(H) 0.73 - 1.18 mg/dL 11/22/2018 8:04 AM CDT [facility] eGFR by MDRD 22(L) >60 mL/min/1.7 3m2 11/22/2018 8:04 AM CDT [facility] eGFR by MDRD 27(L) >60 mL/min/1.7 3m2 11/22/2018 8:04 AM CDT [facility] Blood BLOOD SPECIMEN / Unknown Venipuncture / Unknown 11/22/2018 7:33 AM CDT 11/22/2018 7:38 AM CDT Francisco Luque MD LAB - CHEMISTRY [facility]NA[facility] Organization Address City/State/[facility] Co de Phone Number [facility] [address] [place] [address] documented in this encounter Visit Diagnoses Diagnosis 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[place] heart with stable angina pectoris, unspecified vessel or lesion type (HCC)- Primary Controlled type 2 diabetes mellitus without complication, with long-term current use of insulin (HCC) 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) documented in this encounter Administered Medications Inactive Administered Medications - up to 3 most recent administrations Medication Order MAR Action Action Date Dose Rate Site 0.9% NaCl infusion at 75 mL/hr, Intravenous, CONTINUOUS, Starting on Mon11/22/18 at 0915, Until Mon11/23/18 at 1950 $ New Bag/Syringe 11/22/2018 9:15 AM CDT 75 mL/hr aspirin (ASPIRIN) chew tablet 81 mg 81 mg, Oral, DAILY, 365 doses, First dose on Mon11/23/18 at 0900, Last dose on Mon11/22/19 at 0900 $ Given 11/23/2018 8:43 AM CDT 81 mg aspirin (ASPIRIN) tablet 325 mg 325 mg, Oral, DAILY, 365 doses, First dose on Gregoria 11/22/18 at 0945, Last dose on Mon11/21/19 at 0900 $ Given 11/22/2018 9:09 AM CDT 325 mg atorvastatin (LIPITOR) tablet 80 mg 80 mg, Oral, AT BEDTIME, 365 doses, First dose on Gregoria 11/22/18 at 2100, Last dose on Mon11/21/19 at 2100 $ Given 11/22/2018 8:55 PM CDT 80 mg bivalirudin (ANGIOMAX) 250 mg in 0.9% NaCl 50 mL infusion 1 mg/kg/hr ? 119.8 kg (23.96 mL/hr), Intravenous, INTRA-OP CONTINUOUS, Starting on Gregoria 11/22/18 at 0900, Until Mon11/22/18 at 0912 $ New Bag/Syringe 11/22/2018 8:48 AM CDT 1 mg/kg/hr 23.96 mL/hr bivalirudin (ANGIOMAX) IV bolus 90 mg (rounded from 89.85 mg = 0.75 mg/kg ? 119.8 kg), Intravenous, INTRA-PROCEDURE ONCE, 1 dose, On Gregoria 11/22/18 at 0900 $ Given 11/22/2018 8:48 AM CDT 90 mg calcitriol (ROCALTROL) capsule 0.25 mcg 0.25 mcg, Oral, DAILY, 365 doses, First dose on Gregoria 11/22/18 at 1400, Last dose on Mon11/21/19 at 0900 $ Given 11/23/2018 8:43 AM CDT 0.25 mcg $ Given 11/22/2018 4:56 PM CDT 0.25 mcg calcium carbonate (TUMS) chew tablet 1 tablet 1 tablet, Oral, EVERY 2 HOURS PRN, Heartburn, Starting on Gregoria 11/22/18 at 1548, Until Mon11/23/18 at 1950 $ Given 11/22/2018 4:56 PM CDT 1 tablet cloNIDine (CATAPRES) tablet 0.1 mg 0.1 mg, Oral, 2 TIMES DAILY, 730 doses, First dose (after last modification) on Mon11/23/18 at 1500, Last dose on Mon11/22/19 at 2100 $ Given 11/23/2018 3:05 PM CDT 0.1 mg clopidogrel (plaVIX) tablet 300-600 mg 300-600 mg, Oral, INTRA-PROCEDURE ONCE, 1 dose, On Mon11/22/18 at 0915 $ Given 11/22/2018 9:09 AM CDT 300 mg clopidogrel (plaVIX) tablet 75 mg 75 mg, Oral, DAILY, 365 doses, First dose on Mon11/23/18 at 0900, Last dose on Mon11/22/19 at 0900 $ Given 11/23/2018 8:44 AM CDT 75 mg colchicine tablet 0.6 mg 0.6 mg, Oral, DAILY, 365 doses, First dose on Mon11/22/18 at 1400, Last dose on Mon11/21/19 at 0900 $ Given 11/23/2018 8:44 AM CDT 0.6 mg $ Given 11/22/2018 4:56 PM CDT 0.6 mg dextrose IV 12.5-25 g 12.5-25 g (25-50 mL), Intravenous, PRN, Bedside Glucose less than 70 mg/dL -If NOT able to eat and/or NPO and with IV Access, Starting on Mon11/22/18 at 0929, Until Mon11/23/18 at 1950, If NOT able to eat and/or NPO and with IV Access: For Bedside Glucose 50-69 mg/dL give 25 mls D50W IVP STAT For Bedside glucose 50 mg/dL or LESS verify with a second Bedside Glucose (from a different site) and give 50 mls D50W IVP STAT Re-check and Re-treat blood glucose EVERY 10-25 minutes until blood glucose GREATER than or equal to 80 mg/dl. NOTIFY PROVIDER OF HYPOGLYCEMIC EVENT. dextrose IV 25 g 25 g (50 mL), Intravenous, ONCE, 1 dose, On Mon11/22/18 at 0830, Intra-procedure (CATH) $ Given 11/22/2018 8:13 AM CDT 2 5 g dextrose IV 25 g 25 g (50 mL), Intravenous, ONCE, 1 dose, On Mon11/22/18 at 1000 $ Given 11/22/2018 9:35 AM CDT 25 g diphenhydrAMINE (BENADRYL) injection 25-50 mg 25-50 mg, Intravenous, INTRA-PROCEDURE MULTIPLE, 2 doses, Starting on Mon11/22/18 at 0811, Until Mon11/22/18 at 0912, Intra-procedure (CATH) $ Given 11/22/2018 8:16 AM CDT 50 mg fentaNYL (PF) (SUBLIMAZE) injection 25-200 mcg 25-200 mcg, Intravenous, INTRA-PROCEDURE MULTIPLE, Starting on Mon11/22/18 at 0737, Until Mon11/22/18 at 0912 $ Given 11/22/2018 8:23 AM CDT 50 mcg furosemide (LASIX) tablet 40 mg 40 mg, Oral, 2 TIMES DAILY, First dose on Mon11/23/18 at 1500, Until Discontinued $ Given 11/23/2018 3:05 PM CDT 40 mg gemfibrozil (LOPID) tablet 600 mg 600 mg, Oral, 2 TIMES DAILY (before breakfast and supper), 730 doses, First dose on Mon11/22/18 at 1700, Last dose on Mon11/22/19 at 0700, Give 30 minutes before meal $ Given 11/23/2018 8:43 AM CDT 600 mg $ Given 11/22/2018 4:56 PM CDT 600 mg glucagon (GLUCAGEN) injection 1 mg 1 mg, Intramuscular, PRN, Bedside Glucose less than 70 mg/dL - If NOT able to eat and/or NPO and withOUT IV Access, Starting on Mon11/22/18 at 0929, Until Mon11/23/18 at 1950, If NOT able to eat and/or NPO and NO IV Access: For Bedside glucose 50-69 mg/dL Give 1 mg IM or SQ For Bedside Glucose LESS than 50 mg/dl verify with a second bedside glucose (from a different site) and Give 1 mg IM or SQ Re-check and Re-treat blood glucose EVERY 10-25 minutes until blood glucose GREATER than or equal to 80 mg/dl. NOTIFY PROVIDER OF HYPOGLYCEMIC EVENT. Reconstitute vial with 1 mL of sterile water for injection for a final concentration of 1 mg/mL; shake vial gently; use immediately and discard unused portion glucose (Diabetic Use) oral gel Oral, PRN, Other, Bedside Glucose less than 70 mg/dL -If able to eat and does not have swallowing difficulties, Starting on Gregoria 11/22/18 at 0929, Until Mon11/23/18 at 1950, If able to eat and does not have swallowing difficulties: For Bedside Glucose 50 - 69 mg/dL Give 15 grams of oral carbohydrates - 1 glucose gel (see MAR) If patient refuses glucose gel, then offer: - 4 ounces of fruit juice OR - 4 ounces non-diet soda OR - 8 ounces of fat-free milk For Bedside Glucose LESS than 50 mg/dL verify with a second Bedside Glucose (from a different site) - If pt is symptomatic, do not delay treatment If the patient is exhibiting symptoms which are not consistent with the results obtained, confirm the glucose with a STAT laboratory test. Give 30 grams of oral carbohydrates - 2 glucose gels (see MAR) If patient refuses glucose gel, then offer: - 8 ounces of fruit juice OR - 8 ounces non-diet soda OR - 16 ounces of fat-free milk Re-check and Re-treat blood glucose EVERY 10-25 minutes until blood glucose GREATER than or equal to 80 mg/dl. NOTIFY PROVIDER OF HYPOGLYCEMIC EVENT. heparinized saline 2 units/ml infusion 1,000-3,000 mL, Intra-arterial, INTRA-PROCEDURE MULTIPLE, 3 doses, Starting on Mon11/22/18 at 0737, Until Mon11/22/18 at 0912 $ New Bag/Syringe 11/22/2018 8:23 AM CDT 2,000 mL hydrALAZINE (APRESOLINE) injection 10 mg 10 mg, Intravenous, INTRA-PROCEDURE MULTIPLE, 2 doses, Starting on Mon11/22/18 at 1045, Until Mon11/22/18 at 1129, Intra-procedure (CATH) $ Given 11/22/2018 11:29 AM CDT 10 mg $ Given 11/22/2018 11:03 AM CDT 10 mg hydrALAZINE (APRESOLINE) tablet 100 mg 100 mg, Oral, 3 TIMES DAILY, 1095 doses, First dose on Mon11/23/18 at 1515, Last dose on Mon11/23/19 at 0900 $ Given 11/23/2018 2:51 PM CDT 100 mg hydrocortisone sodium succinate PF (Solu-CORTEF) injection 100 mg 100 mg, Intravenous, INTRA-PROCEDURE ONCE, 1 dose, On Mon11/22/18 at 0815, Intra-procedure (CATH) $ Given 11/22/2018 8:16 AM CDT 100 mg insulin aspart (NovoLOG) pen 0-6 Units 0-6 Units, Subcutaneous, 3 TIMES DAILY WITH MEALS, 1095 doses, First dose on Mon11/22/18 at 1800, Last dose on Mon11/22/19 at 1200, Low Dose: Correction Insulin BG (mg/dL) Corrective Action LESS than 70: follow Hypoglycemic guidelines, 70-180: NO Correction insulin, 181-220: GIVE 2 units of insulin, 221-260: GIVE 3 units of insulin, 261-300: GIVE 4 units of insulin, 301-350: GIVE 5 units of insulin, Greater than 350: GIVE 6 units of insulin and notify physician., If the patient is NPO: DO NOT HOLD correction insulin If patient is eating meals and has orders for Mealtime insulin, combine and give at the same time. $ Given 11/22/2018 5:58 PM CDT 6 Units Right Arm insulin aspart (NovoLOG) pen 12 Units 12 Units, Subcutaneous, 3 TIMES DAILY WITH MEALS, 1095 doses, First dose on Mon11/22/18 at 1800, Last dose on Mon11/22/19 at 1200, MEALTIME INSULIN Hold MEALTIME insulin if patient is NPO or eating less than 50% of meals. -OR- if carb intake for the meal is less than 30 grams. May be given immediately before meal, during meal, or immediately after meal is eaten. Meal must be present before administration. Combine mealtime dose and correction insulin dose if needed into one injection. $ Given 11/23/2018 8:19 AM CDT 12 Units Right Arm $ Given 11/22/2018 5:57 PM CDT 12 Units Ri ght Arm insulin glargine (LANTUS) pen 30 Units 30 Units, Subcutaneous, AT BEDTIME, 365 doses, First dose on Mon11/22/18 at 2100, Last dose on Mon11/21/19 at 2100, ............. DO NOT HOLD even if patient is NPO Consider calling physician for dose reduction if patient is made NPO. Body mass index is 37.88 kg/(m^2). . WASTE DISPOSAL INSTRUCTIONS: Black Bin Disposal required. $ Given 11/22/2018 8:57 PM CDT 30 Units Abd Left Upper Quadrant iopamidol (ISOVUE 300) 61 % contrast Oral, INTRA-PROCEDURE MULTIPLE, Starting on Gregoria 11/22/18 at 0742, Until Gregoria 11/22/18 at 0912 $ Given - Contrast 11/22/2018 9:07 AM CDT 130 mL isosorbide mononitrate CR 24hr (IMDUR) tablet 30 mg 30 mg, Oral, DAILY, 365 doses, First dose on Mon11/23/18 at 1515, Last dose on Mon11/22/19 at 0900, May cut in half but do not crush or chew $ Given 11/23/2018 3:05 PM CDT 30 mg isosorbide mononitrate CR 24hr (IMDUR) tablet 60 mg 60 mg, Oral, DAILY, 365 doses, First dose on Mon11/23/18 at 1515, Last dose on Mon11/22/19 at 0900, May cut in half but do not crush or chew $ Given 11/23/2018 2:52 PM CDT 60 mg lidocaine (XYLOCAINE) 2 % injection 20 mL 20 mL, Infiltration, INTRA-PROCEDURE MULTIPLE, Starting on Gregoria 11/22/18 at 0751, Until Gregoria 11/22/18 at 0912 $ Given 11/22/2018 8:23 AM CDT 20 mL midazolam (VERSED) injection 1-6 mg 1-6 mg, Intravenous, INTRA-PROCEDURE MULTIPLE, Starting on Gregoria 11/22/18 at 0737, Until Gregoria 11/22/18 at 0912 $ Given 11/22/2018 8:23 AM CDT 2 mg ondansetron (disintegrating) (ZOFRAN ODT) tablet 4 mg 4 mg, Oral, EVERY 6 HOURS PRN, Nausea/Vomiting, Starting on Gregoria 11/22/18 at 0920, Until Mon11/23/18 at 1950, Allow tablet to dissolve on the tongue ondansetron (ZOFRAN) injection 4 mg 4 mg, Intravenous, EVERY 6 HOURS PRN, Nausea/Vomiting, Starting on Gregoria 11/22/18 at 0920, Until Mon11/23/18 at 1950, Administer IV if patient is NPO, actively vomiting, or unable to swallow. documented in this encounter Active and Recently Administered Medications Times are shown in CDT. Scheduled Medication Order 11/21/2018 11/22/2018 11/23/2018 aspirin (ASPIRIN) chew tablet 81 mg 81 mg, Oral, DAILY, 365 doses, First dose on Mon11/23/18 at 0900, Last dose on Mon11/22/19 at 0900 0843 ($ Given - Prov ider: Kristie Lizama) aspirin (ASPIRIN) tablet 325 mg (CANCELED) 325 mg, Oral, DAILY, 365 doses, First dose on Gregoria 11/22/18 at 0945, Last dose on Mon11/21/19 at 0900 0909 ($ Given - Provider: Caridad Emerson, LUAN) atorvastatin (LIPITOR) tablet 80 mg 80 mg, Oral, AT BEDTIME, 365 doses, First dose on Gregoria 11/22/18 at 2100, Last dose on Mon11/21/19 at 2100 2055 ($ Given - Provider: Dimitrios Narvaez, LUAN) bivalirudin (ANGIOMAX) IV bolus (COMPLETED) 90 mg (rounded from 89.85 mg = 0.75 mg/kg ? 119.8 kg), Intravenous, INTRA-PROCEDURE ONCE, 1 dose, On Mon11/22/18 at 0900 0848 ($ Given - Provider: Caridad Emerson, LUAN) calcitriol (ROCALTROL) capsule 0.25 mcg 0.25 mcg, Oral, DAILY, 365 doses, First dose on Mon11/22/18 at 1400, Last dose on Mon11/21/19 at 0900 1656 ($ Given - Provider: Kirstin Silveira, LUAN) 0843 ($ Given - Provider: Kristie Lizama) carvedilol (COREG) tablet 25 mg 25 mg, Oral, 2 TIMES DAILY WITH MEALS, 730 doses, First dose on Mon11/23/18 at 1800, Last dose on Mon11/23/19 at 0800, Take with food 1800 (Due) cloNIDine (CATAPRES) tablet 0.1 mg 0.1 mg, Oral, 2 TIMES DAILY, 730 doses, First dose (after last modification) on Mon11/23/18 at 1500, Last dose on Mon11/22/19 at 2100 1505 ($ Given - Prov ider: Kristie Lizama) clopidogrel (plaVIX) tablet 300-600 mg (COMPLETED) 300-600 mg, Oral, INTRA-PROCEDURE ONCE, 1 dose, On Gregoria 11/22/18 at 0915 0909 ($ Given - Provider: Caridad Emerson, LUAN) clopidogrel (plaVIX) tablet 75 mg 75 mg, Oral, DAILY, 365 doses, First dose on Mon11/23/18 at 0900, Last dose on Mon11/22/19 at 0900 0844 ($ Given - Prov ider: Kristie Lizama) colchicine tablet 0.6 mg 0.6 mg, Oral, DAILY, 365 doses, First dose on Mon11/22/18 at 1400, Last dose on Mon11/21/19 at 0900 1656 ($ Given - Provider: Kirstin Silveira RN) 0844 ($ Given - Provider: Kristie Lizama) dextrose IV 25 g (COMPLETED) 25 g (50 mL), Intravenous, ONCE, 1 dose, On Gregoria 11/22/18 at 0830, Intra-procedure (CATH) 0813 ($ Given - Provider: Sandrine Chiu RN) dextrose IV 25 g (COMPLETED) 25 g (50 mL), Intravenous, ONCE, 1 dose, On Mon11/22/18 at 1000 0935 ($ Given - Provider: Janee Hay RN) diphenhydrAMINE (BENADRYL) injection 25-50 mg (CANCELED) 25-50 mg, Intravenous, INTRA-PROCEDURE MULTIPLE, 2 doses, Starting on Gregoria 11/22/18 at 0811, Until Gregoria 11/22/18 at 0912, Intra-procedure (CATH) 0816 ($ Given - Provider: Sandrine Chiu RN) fentaNYL (PF) (SUBLIMAZE) injection 25-200 mcg (CANCELED) 25-200 mcg, Intravenous, INTRA-PROCEDURE MULTIPLE, Starting on Gregoria 11/22/18 at 0737, Until Gregoria 11/22/18 at 0912 0823 ($ Given - Provider: Caridad Emerson, LUAN) furosemide (LASIX) tablet 40 mg 40 mg, Oral, 2 TIMES DAILY, First dose on Mon11/23/18 at 1500, Until Discontinued 1505 ($ Given - Prov ider: Kristie Lizama) gemfibrozil (LOPID) tablet 600 mg 600 mg, Oral, 2 TIMES DAILY (before breakfast and supper), 730 doses, First dose on Mon11/22/18 at 1700, Last dose on Mon11/22/19 at 0700, Give 30 minutes before meal 1656 ($ Given - Provider: Kirstin Silveira, LUAN) 0843 ($ Given - Provider: Kristie Lizama)1700 (Due) heparinized saline 2 units/ml infusion (CANCELED) 1,000-3,000 mL, Intra-arterial, INTRA-PROCEDURE MULTIPLE, 3 doses, Starting on Mon11/22/18 at 0737, Until Mon11/22/18 at 0912 0823 ($ New Bag/Syringe - Provider: Caridad Emerson, LUAN) hydrALAZINE (APRESOLINE) injection 10 mg (COMPLETED) 10 mg, Intravenous, INTRA-PROCEDURE MULTIPLE, 2 doses, Starting on Mon11/22/18 at 1045, Until Mon11/22/18 at 1129, Intra-procedure (CATH) 1103 ($ Given - Provider: Sandrine Chiu RN)1129 ($ Given - Provider: Pamela Bess RN) hydrALAZINE (APRESOLINE) tablet 100 mg 100 mg, Oral, 3 TIMES DAILY, 1095 doses, First dose on Mon11/23/18 at 1515, Last dose on Mon11/23/19 at 0900 1451 ($ Given - Prov ider: Kristie Lizama) hydrocortisone sodium succinate PF (Solu-CORTEF) injection 100 mg (COMPLETED) 100 mg, Intravenous, INTRA-PROCEDURE ONCE, 1 dose, On Mon11/22/18 at 0815, Intra-procedure (CATH) 0816 ($ Given - Provider: Sandrine Chiu RN) insulin aspart (NovoLOG) pen 0-6 Units 0-6 Units, Subcutaneous, 3 TIMES DAILY WITH MEALS, 1095 doses, First dose on Mon11/22/18 at 1800, Last dose on Mon11/22/19 at 1200, Low Dose: Correction Insulin BG (mg/dL) Corrective Action LESS than 70: follow Hypoglycemic guidelines, 70-180: NO Correction insulin, 181-220: GIVE 2 units of insulin, 221-260: GIVE 3 units of insulin, 261-300: GIVE 4 units of insulin, 301-350: GIVE 5 units of insulin, Greater than 350: GIVE 6 units of insulin and notify physician., If the patient is NPO: DO NOT HOLD correction insulin If patient is eating meals and has orders for Mealtime insulin, combine and give at the same time. 1758 ($ Given - Provider: Kirstin Silveira RN) 0846 (Not Administered - Provider: Kristie Lizama - Reason: Per Administration Instructions)1305 (Not Administered - Provider: Kristie Lizama - Reason: Per Administration Instructions)1800 (Due) insulin aspart (NovoLOG) pen 12 Units 12 Units, Subcutaneous, 3 TIMES DAILY WITH MEALS, 1095 doses, First dose on Mon11/22/18 at 1800, Last dose on Mon11/22/19 at 1200, MEALTIME INSULIN Hold MEALTIME insulin if patient is NPO or eating less than 50% of meals. -OR- if carb intake for the meal is less than 30 grams. May be given immediately before meal, during meal, or immediately after meal is eaten. Meal must be present before administration. Combine mealtime dose and correction insulin dose if needed into one injection. 175 ($ Given - Provider: Kirstin Silveira RN) 0819 ($ Given - Provider: Kristie Lizama)1306 (Not Administered - Provider: Kristie Lizama - Reason: Patient Condition)1800 (Due) insulin glargine (LANTUS) pen 30 Units 30 Units, Subcutaneous, AT BEDTIME, 365 doses, First dose on Gregoria 11/22/18 at 2100, Last dose on Mon11/21/19 at 2100, ............. DO NOT HOLD even if patient is NPO Consider calling physician for dose reduction if patient is made NPO. Body mass index is 37.88 kg/(m^2). . WASTE DISPOSAL INSTRUCTIONS: Black Bin Disposal required. 2056 ($ Given - Provider: Dimitrios Narvaez RN) iopamidol (ISOVUE 300) 61 % contrast (CANCELED) Oral, INTRA-PROCEDURE MULTIPLE, Starting on Gregoria 11/22/18 at 0742, Until Gregoria 11/22/18 at 0912 0907 ($ Given - Contrast - Provider: Caridad Emerson RN) isosorbide mononitrate CR 24hr (IMDUR) tablet 30 mg 30 mg, Oral, DAILY, 365 doses, First dose on Mon11/23/18 at 1515, Last dose on Mon11/22/19 at 0900, May cut in half but do not crush or chew 1505 ($ Given - Prov ider: Kristie Lizama) isosorbide mononitrate CR 24hr (IMDUR) tablet 60 mg 60 mg, Oral, DAILY, 365 doses, First dose on Mon11/23/18 at 1515, Last dose on Mon11/22/19 at 0900, May cut in half but do not crush or chew 1452 ($ Given - Prov ider: Kristie Lizama) lidocaine (XYLOCAINE) 2 % injection 20 mL (CANCELED) 20 mL, Infiltration, INTRA-PROCEDURE MULTIPLE, Starting on Gregoria 11/22/18 at 0751, Until Gregoria 11/22/18 at 0912 0823 ($ Given - Provider: Caridad Emerson RN) midazolam (VERSED) injection 1-6 mg (CANCELED) 1-6 mg, Intravenous, INTRA-PROCEDURE MULTIPLE, Starting on Mon11/22/18 at 0737, Until Gregoria 11/22/18 at 0912 0823 ($ Given - Provider: Caridad Emerson RN) terazosin (HYTRIN) capsule 2 mg 2 mg, Oral, DAILY, 365 doses, First dose on Mon11/23/18 at 1515, Last dose on Mon11/22/19 at 0900 1515 (Due) Continuous Medication Order 11/21/2018 11/22/2018 11/23/2018 0.9% NaCl infusion at 75 mL/hr, Intravenous, CONTINUOUS, Starting on Mon11/22/18 at 0915, Until Mon11/23/18 at 1950 0915 ($ New Bag/Syringe - Provider: Myrna Swanson RN)2100 (Stopped - Provider: Dimitrios Narvaez RN) bivalirudin (ANGIOMAX) 250 mg in 0.9% NaCl 50 mL infusion (CANCELED) 1 mg/kg/hr ? 119.8 kg (23.96 mL/hr), Intravenous, INTRA-OP CONTINUOUS, Starting on Mon11/22/18 at 0900, Until Gregoria 11/22/18 at 0912 0848 ($ New Bag/Syringe - Provider: Caridad Emerson, RN)0912 (Stopped - Provider: Caridad Emerson, RN) PRN Medication Order 11/21/2018 11/22/2018 11/23/2018 calcium carbonate (TUMS) chew tablet 1 tablet 1 tablet, Oral, EVERY 2 HOURS PRN, Heartburn, Starting on Gregoria 11/22/18 at 1548, Until Mon11/23/18 at 1950 1656 ($ Given - Provider: Kirstin Silveira RN) dextrose IV 12.5-25 g 12.5-25 g (25-50 mL), Intravenous, PRN, Bedside Glucose less than 70 mg/dL -If NOT able to eat and/or NPO and with IV Access, Starting on Gregoria 11/22/18 at 0929, Until Mon11/23/18 at 1950, If NOT able to eat and/or NPO and with IV Access: For Bedside Glucose 50-69 mg/dL give 25 mls D50W IVP STAT For Bedside glucose 50 mg/dL or LESS verify with a second Bedside Glucose (from a different site) and give 50 mls D50W IVP STAT Re-check and Re-treat blood glucose EVERY 10-25 minutes until blood glucose GREATER than or equal to 80 mg/dl. NOTIFY PROVIDER OF HYPOGLYCEMIC EVENT. fentaNYL (PF) (SUBLIMAZE) injection 50 mcg 50 mcg, Intravenous, ONCE PRN, Pain associated with sheath pull., 1 dose, Starting on Gregoria 11/22/18 at 0918, Until Mon11/23/18 at 1950, ..May give Fentanyl as needed, for one dose, prior to sheath removal for sheath removal procedure. glucagon (GLUCAGEN) injection 1 mg 1 mg, Intramuscular, PRN, Bedside Glucose less than 70 mg/dL - If NOT able to eat and/or NPO and withOUT IV Access, Starting on Gregoria 11/22/18 at 0929, Until Mon11/23/18 at 1950, If NOT able to eat and/or NPO and NO IV Access: For Bedside glucose 50-69 mg/dL Give 1 mg IM or SQ For Bedside Glucose LESS than 50 mg/dl verify with a second bedside glucose (from a different site) and Give 1 mg IM or SQ Re-check and Re-treat blood glucose EVERY 10-25 minutes until blood glucose GREATER than or equal to 80 mg/dl. NOTIFY PROVIDER OF HYPOGLYCEMIC EVENT. Reconstitute vial with 1 mL of sterile water for injection for a final concentration of 1 mg/mL; shake vial gently; use immediately and discard unused portion glucose (Diabetic Use) oral gel Oral, PRN, Other, Bedside Glucose less than 70 mg/dL -If able to eat and does not have swallowing difficulties, Starting on Gregoria 11/22/18 at 0929, Until Mon11/23/18 at 1950, If able to eat and does not have swallowing difficulties: For Bedside Glucose 50 - 69 mg/dL Give 15 grams of oral carbohydrates - 1 glucose gel (see MAR) If patient refuses glucose gel, then offer: - 4 ounces of fruit juice OR - 4 ounces non-diet soda OR - 8 ounces of fat-free milk For Bedside Glucose LESS than 50 mg/dL verify with a second Bedside Glucose (from a different site) - If pt is symptomatic, do not delay treatment If the patient is exhibiting symptoms which are not consistent with the results obtained, confirm the glucose with a STAT laboratory test. Give 30 grams of oral carbohydrates - 2 glucose gels (see MAR) If patient refuses glucose gel, then offer: - 8 ounces of fruit juice OR - 8 ounces non-diet soda OR - 16 ounces of fat-free milk Re-check and Re-treat blood glucose EVERY 10-25 minutes until blood glucose GREATER than or equal to 80 mg/dl. NOTIFY PROVIDER OF HYPOGLYCEMIC EVENT. HYDROcodone-acetaminophen (NORCO) 5-325 MG tablet 1 tablet 1 tablet, Oral, EVERY 6 HOURS PRN, Moderate Pain, Starting on Gregoria 11/22/18 at 0920, Until Mon11/23/18 at 1950 midazolam (VERSED) injection 1 mg 1 mg, Intravenous, ONCE PRN, Anxiety/aggitation associated with sheath pull., Starting on Gregoria 11/22/18 at 0918, Until Mon11/23/18 at 1950, ..May give Versed as needed, for one dose, prior to sheath removal for sheath removal procedure. ondansetron (disintegrating) (ZOFRAN ODT) tablet 4 mg(Linked Group 1) 4 mg, Oral, EVERY 6 HOURS PRN, Nausea/Vomiting, Starting on Gregoria 11/22/18 at 0920, Until Mon11/23/18 at 1950, Allow tablet to dissolve on the tongue ondansetron (ZOFRAN) injection 4 mg(Linked Group 1) 4 mg, Intravenous, EVERY 6 HOURS PRN, Nausea/Vomiting, Starting on Gregoria 11/22/18 at 0920, Until Mon11/23/18 at 1950, Administer IV if patient is NPO, actively vomiting, or unable to swallow. traMADol (ULTRAM) tablet 50 mg 50 mg, Oral, EVERY 6 HOURS PRN, Mild Pain, Starting on Gregoria 11/22/18 at 0920, Until Mon11/23/18 at 1950 Linked Groups Order Group 1: ondansetron (disintegrating) (ZOFRAN ODT) tablet 4 mgJump to med 4 mg, Oral, EVERY 6 HOURS PRN, Nausea/Vomiting, Starting on Gregoria 11/22/18 at 0920, Until Mon11/23/18 at 1950, Allow tablet to dissolve on the tongue Or ondansetron (ZOFRAN) injection 4 mgJump to med 4 mg, Intravenous, EVERY 6 HOURS PRN, Nausea/Vomiting, Starting on Gregoria 11/22/18 at 0920, Until Mon11/23/18 at 1950, Administer IV if patient is NPO, actively vomiting, or unable to swallow. documented in this encounter Care Teams Directory Clerk Relationship Specialty Start Date End Date Jhonatan Bellamy MD [address] [place] [address] PCP - General Family Medicine 03/25/15 03/05/19 documented as of this encounter
--- OUTSIDE RECORDS SUMMARY | 2024-08-18 13:01 | XMS_ITS ---
Author Organization [facility] Address [address] [place] [address] Care Team Providers Care Vice President Of News Name Role Phone Aditya Castro Primary Care Provider Unavailab le Transplant Episode Kidney Candidate [facility] ([place], [place]) - MOS Evaluation began on 03/20/2020 Marked as Ineligible on 07/15/2020 Reason: Weight Issues Kidney CoordinatorAnali Merino RN Phone: N/A Fax: N/A Email: N/A Scores Score Value Updated Exceptions/Reas ons CPRA Not available EPTS (Calc) 39 08/18/2024 Ruby Organ Diagnosis Organ Primary Contributory Kidney Diabetes Mellitus - Type I Care Team Name Role Phone Fax Email Anali Merino RN Kidney Coordinator N/A N/A N/A Manda Sam LCSW Inspection Clerk N/A N/A N/A Halley Rojo Dry Ice Machine Operator N/A N/A N/A Leandro Reyes MD Referring Physician N/A N/A N/A Events Pre-Transplant Referred: 12/31/2019 Evaluation began: 03/20/2020 Committee: 07/15/2020 Dialysis History Dialysis History Start End Type Comments Center 10/16/2019 Peritoneal [facility] Dialysis Center Information Center Phone Fax Address [facility] [phone] [address]
--- OUTSIDE RECORDS SUMMARY | 2024-08-18 13:01 | XMS_ITS ---
Author Organization [facility] Address [address] [place] [address] Care Team Providers Care Component Prep Operator Name Role Phone Aditya Castro Primary Care Provider Unavailab le Transplant Episode Pancreas Candidate [facility] ([place], [place]) - [facility] Referred on 12/31/2019 Marked as Ineligible on 02/04/2020 Reason: Weight Issues Pancreas CoordinatorGracie Chambers RN Phone: N/A Fax: N/A Email: N/A Care Team Name Role Phone Fax Email Gracie Chambers RN Pancreas Coordinator N/A N/A N/A Leandro Reyes MD Referring Physician N/A N/A N/A Events Pre-Transplant Referred: 12/31/2019 Dialysis History Dialysis History Start End Type Comments Center 10/16/2019 Peritoneal [facility] Dialysis Center Information Center Phone Fax Address [facility] [phone] [address]
--- OUTSIDE RECORDS SUMMARY | 2024-08-18 13:02 | XMS_ITS | Data Portability ---
Author Organization [facility] IP Address [address] [place] [address] Care Team Providers Care Rand Tacker Name Role Phone STEPHANIE CORREA Primary Care Provider Assessment No assessment recorded. Plan of Treatment Reminders Order Date Submit Date Provider Last Modified By Organization Details Last Modified Time Details Appointments None record ed. Lab None record ed. Referral None record ed. Procedures None record ed. Surgeries None record ed. Imaging None record ed. Medication Orders None record ed. Patient TargetsNo targets recorded. Patient Instructions Encounter Date Encounter Id Patient Instructions Last Modified By Organization Details Last Modified Time 07/25/2018 [id number] use OTC lubrican t eyedrops 3 times a day in both eyes. [email or web address] Not available 07/25/2018 17:27:28 Keep follow-up appointments in 2 months as scheduled. [email or web address] Not available 07/25/2018 17:27:45 12/05/2018 [id number] diabetic retinopathy: care instructions msafi Not available 12/05/2018 20:02:55 type 2 diabetes: care [facility] 12/05/2018 20:02:55 Reason for Referral None Reported. Problems Name Problem SNOMED Code Status Onset Date Resolution Date Notes Provider Name and Address Organization Details Recorded Time Diabetes mellitus 17821024 Active 2017 Wandy agosto [facility] 8 12:14:02 Hypercholestero lemia 32414296 Active 2017 Wandy agosto [place] [facility] 8 12:14:14 Problem Notes None recorded. Procedures Surgical History Date Name Laterality Status Provider Name and Address Organization Details Recorded Time 9 placement of stent in coronary artery completed Wandy Rapp [place] [facility] 12/05/2018 10:00:35 7 placement of stent in coronary artery completed Wandy Rapp [facility] 12/05/2018 09:59:38 7 Cataract Surgery completed Wandy Rapp [facility] 12/05/2018 10:00:20 Imaging Results None recorded. Procedure Notes None recorded. Medical Equipment None Reported. Allergies Allergen ID Allergen Name Allergen Category Reaction Reaction Severity Criticality Documentation Date Start Date Code Code System Note Provider Name and Address Organization Details Recorded Time 898075 Brilinta medicatio n Not available Not available Not available 07/04/2018 [address] [facility] 8 12:13:16 930455 Iodinated contrast media (substanc e) medicatio n Not available Not available Not available 07/04/2018 [address] [facility] 8 12:13:31 Medications Name Sig Start Date Stop Date Status Note LastModified by Organization Details LastModified Time cyclobenzaprine 10 mg tablet active Not Available Not Available Not Available furosemide 40 mg tablet active Not Available Not Available Not Available atorvastatin 40 mg tablet active Not Available Not Available No t Available carvedilol 25 mg tablet active Not Available Not Available Not Available clonidine HCl 0.1 mg tablet active Not Available Not Available No t Available prednisone 10 mg tablet active Not Available Not Available Not Available atorvastatin 20 mg tablet active Not Available Not Available No t Available ketoconazole 2 % shampoo active Not Available Not Available Not Available albuterol sulfate 2.5 mg/3 mL (0.083 %) solution for nebulization active Not Available Not Available Not Available cetirizine 10 mg tablet active Not Available Not Available Not Available azithromycin 250 mg tablet active Not Available Not Available No t Available Glucagon Emergency Kit 1 mg solution for injection active Not Available Not Available No t Available benzonatate 200 mg capsule active Not Available Not Available N ot Available ranitidine 300 mg tablet active Not Available Not Available Not Available hydrocodone 5 mg-acetaminophen 325 mg tablet active Not Available Not Availabl e Not Available isosorbide mononitrate ER 30 mg tablet,extended release 24 hr active Not Available Not Availabl e Not Available Lantus U-100 Insulin 100 unit/mL subcutaneous solution active Not Available Not Available Not Available lidocaine HCl 2 % mucosal jelly active Not Available Not Availabl e Not Available clopidogrel 75 mg tablet active Not Available Not Available Not Available tramadol 50 mg tablet active Not Available Not Available Not Available simvastatin 40 mg tablet active Not Available Not Available Not Available isosorbide mononitrate ER 60 mg tablet,extended release 24 hr active Not Available Not Availabl e Not Available terazosin 2 mg capsule active Not Available Not Available Not Available Humalog U-100 Insulin 100 unit/mL subcutaneous solution active Not Available Not Available Not Available doxycycline monohydrate 100 mg capsule active Not Available Not Available N ot Available gemfibrozil 600 mg tablet active Not Available Not Available No t Available hydralazine 100 mg tablet active Not Available Not Available No t Available nitroglycerin 0.4 mg sublingual tablet active Not Available Not Available Not Available insulin syringe U-100 with needle 1 mL 31 gauge x 5/16 active Not Available Not Available Not Available allopurinol 300 mg tablet active Not Available Not Available No t Available ergocalciferol (vitamin D2) 1,250 mcg (50,000 unit) capsule active Not Available Not Availabl e Not Available colchicine 0.6 mg tablet active Not Available Not Available Not Available fluticasone propionate 50 mcg/actuation nasal spray,suspension active Not Available Not Avail able Not Available calcitriol 0.25 mcg capsule active Not Available Not Available Not Available ranolazine ER 500 mg tablet,extended release,12 hr active Not Available Not Availabl e Not Available OneTouch Ultra2 Meter kit active Not Available Not Available No t Available ferrous sulfate 324 mg (65 mg iron) tablet,delayed release active Not Available Not Available Not Available Uloric 40 mg tablet active Not Available Not Available Not Available Micro Thin Lancets 33 gauge active Not Available Not Avail able Not Available OneTouch Delica Lancets 30 gauge active Not Available Not Avail able Not Available Eliquis 5 mg tablet active Not Available Not Available Not Available True Metrix Glucose Test Strip active Not Available Not Available Not Available True Metrix Glucose Meter active Not Available Not Availabl e Not Available Basaglar KwikPen U-100 Insulin 100 unit/mL (3 mL) subcutaneous active Not Available Not Available Not Available TRUEplus Pen Needle 31 gauge x 5/16 active Not Available Not Available Not Available Admelog SoloStar U-100 Insulin lispro 100 unit/mL subcutaneous pen active Not Available Not Avail able Not Available OneTouch Ultra Blue Test Strip active Not Available Not Availa ble Not Available Vitals Date Recorded Body height Heart rate Body mass index (BMI) Body weight Systolic blood pressure Diastolic blood pressure Provider Name and Address Organization Details Last Updated DateTime 8 180.34 cm 64 /min 37 kg/m2 208638. 98 g 161 mm[Hg] 66 mm[Hg] Wandy [facility] 8 12:12:14 Date Recorded Body height Heart rate Body mass index (BMI) Body weight Systolic blood pressure Diastolic blood pressure Provider Name and Address Organization Details Last Updated DateTime 8 180.34 cm 63 /min 36.9 kg/m2 173338. 46 g 148 mm[Hg] 67 mm[Hg] Bernice Connelly RN [facility] 8 15:12:11 Date Recorded Body height Body mass index (BMI) Body weight Heart rate Systolic blood pressure Diastolic blood pressure Provider Name and Address Organization Details Last Updated DateTime 9 180.34 cm 37.8 kg/m2 908385. 53 g 62 /min 133 mm[Hg] 64 mm[Hg] Wandy Rapp [facility] 9 09:58:22 Social History Question Answer Notes LastModified by Organizat ion Details LastModified Time Tobacco Smoking Status Never Smoker Wandy Rapp [facility] 12/05/2018 09:58:54 What Was The Date Of Your Most Recent Tobacco Screening? 12/05/2018 Information not available 03/14/2019 Has Tobacco Cessation Counseling Been Provided? No areaka Information not available 12/05/2018 Sex: Unknown Functional Status None recorded. Mental Status None recorded. Family History Relationship Description Onset Age of this Age Resolved Age Notes LastModified by Organization Details LastModified Time Father Myocardial infarction areaka Not available 12/05 10:02:48 Medical History Condition Response Coronary Artery Disease Y Diabetes Y Sleep Apnea Y High Cholesterol Y Heart Disease Y Hypertension Y Past Encounters Encounter ID Performer Location Encounter Start Date Encounter Closed Date Diagnosis/Indication Diagnosis SNOMED-CT Code Diagnosis ICD10 Code [id number] Evy Olson MD [facility] [address] [place] [address] 07/04/2018 11:51:22 07/05/2018 16:47:49 After-cataract with vision obscured following extraction of cataract 582550688 H26.492 Proliferat bianca retinopathy due to type 1 diabetes mellitus 9963413866 9101 E10.3593 [id number] Evy Olson MD [facility] [address] [place] [address] 07/25/2018 14:26:14 07/30/2018 10:38:59 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 4500672979 45706 E11.3299 Tear film insufficiency 09328100 H04.251 [id number] Evy Olson MD [facility] [address] [place] [address] 12/05/2018 09:46:14 12/06/2018 13:28:35 Nonproliferative retinopathy due to diabetes mellitus 176068377 E11.3293 After-juan ract with vision obscured following extraction of cataract 739310353 H26.492 Health Concerns Section Related Observation LastModified by Organization Detai ls LastModified Time None Recorded Concern Status LastModified by Organization Details LastModified Time None Recorded Advance Directives Directive None Recorded Payers Encounter Date Sequence Insurance Name Policy Number Policy Ge Covered Member ID Ge Member ID Guarantor Name 07/04/2018 1 [facility] (MEDICAID HMO) [id number] Juvenal Newcombe [id number] Juvenal Newcombe 07/25/2018 1 [facility] (MEDICAID HMO) [id number] Juvenal Newcombe [id number] Juvenal Newcombe 12/05/2018 1 [facility] (MEDICAID HMO) [id number] Juvenal Newcombe [id number] Juvenal Newcombe Notes Date Note Type Note Provider Name and Address Organization Details Recorded Time 07/04/2018 text/html C/O bleeding in left eye seen by technical project lead H/O cat. Sx OU. 2016 and 2018. No prolbem in post op exam Evy Olson MD [address] [place], [address], [facility] 07/05/2018 10:07:17 07/25/2018 text/html complaint of red spot in the right eye since 3 days, no pain no discharge no previous injury.History of diabetic retinopathy in both eyes Evy Olson MD [address], [place], [address], [facility] 07/25/2018 17:28:04 12/05/2018 text/html F/U DRP. c/o decreased vision in left eye Evy Olson MD [address], [place], [address], [facility] 12/05/2018 20:02:58
--- OUTSIDE RECORDS SUMMARY | 2024-08-18 13:02 | XMS_ITS | Continuity of Care Document ---
Author Organization [place] - [facility], [facility] Family Practice Giovanni Address [address] [place] [address] Care Team Providers Care Ekg Monitor Name Role Phone ADITYA CASTRO Primary Care Provider [phone] ADITYA CASTRO Referring Provider ADITYA CASTRO Primary Care Provider Assessment Encounter Date Assessment Date Assessment LastModified by Organization Details LastModified Time 05/21/2024 05/21/2024 53 yo M with - [...] per schedule. Cont f/u with Endo at [place] as per schedule. Cont f/u with Spine as per schedule. Cont f/u with Rheumat at [facility] as per schedule. Cont f/u with Surg as per schedule. Cont f/u with Cardio at [facility] as per schedule. Cont f/u with Nephro at [facility] as per schedule. Cont f/u with Hemat at [place] as per schedule. Cont f/u with Special Makeup Fx Artist Instructor as per schedule. Cont f/u with Ophtho at as per schedule. Cont f/u with Derm at [facility] as per schedule. Cont f/u with Dr. Langley (Hand surgeon) at as per schedule. Educated pt about alarming symptoms to monitor at home and call us back or get checked in ED. Pt had acute renal failure and was admitted hospital due to s/e from Allopurinol as per his Slicing Machine Feeder. So pt can not take any Allopurinol [...] in 3-4 months. Annual labs in 05/15. [email or web address] Not available 05/21/2024 16:19:00 Plan of Treatment Reminders Order Date Submit Date Provider Last Modified By Organization Details Last Modified Time Details Appointments Follow Up 30 2024 02:45P Lisa Castro MD Not available Not available Not available Hospital Follow Up 2024 01:00P Lisa Castro MD Not available Not available Not available Lab None recorded. Referral None recorded. Procedures None recorded. Surgeries None recorded. Imaging None recorded. Medication Orders Linzess 72 mcg capsule 2023 024 [facility], [address], [place], [id number], 05/21/2024 16:08:05 Uloric 40 mg tablet 2023 024 [facility] #29711, [address], [place], [id number], 05/21/2024 16:19:35 Vascepa 1 gram capsule 2023 [facility] #93324, [address], [place], [id number], 05/21/2024 16:08:06 atorvasta tin 80 mg tablet 2023 [facility] #26817, [address], [place], [place], [id number], 05/21/2024 16:08:06 ezetimibe 10 mg tablet 2023 [facility] #84574, [address], [place], [id number], 05/21/2024 16:08:09 gemfibroz il 600 mg tablet 2023 [facility] #08821, [address], [place], [id number], 05/21/2024 16:08:08 ergocalci ferol (vitamin D2) 1,250 mcg (50,000 unit) capsule 2023 [facility] #80734, [address], [place], [id number], 05/21/2024 16:08:05 Patient TargetsNo targets recorded. Patient Instructions Encounter Date Encounter Id Patient Instructions Last Modified By Organization Details Last Modified Time 05/21/2024 [id number] starting a weigh t loss plan: care instructions Not available 05/21/2024 16:20:00 Reason for Referral None Reported. Results Created Date Observation Date Name Description Value Unit Range Abnormal Flag Note LastModifiedBy Organization Detail LastModifiedTime 05/02/20 24 scapu la, right [facility] [address], [place] [address] Patien t Name: JUVENAL GARCIA Access ion #: [id number] Sex: M : 1969 3 Dictat ed By: Yady Ma Attend ing Physic britton: EVONNE CASTRO Physic britton: EVONNE CASTRO Exam Date: 2023 [...] at 2023 12:08: 46 PM Page 1 [email or web address] [facility] (Imaging) [address] [place], [place], [facility], 05/07/2024 09:12:00 05/02/20 24 XR, thora cic spine , 3 view [facility] [address] [place] [address] Patien t Name: JUVENLA GARCIA Access ion #: [id number] Sex: M : 1969 3 Dictat ed By: Vahe Arana Attend ing Physic britton: EVONNE CASTRO Physic britton: EVONNE CASTRO Exam Date: 2023 11:57 AM Exam Name: XR T SPINE 3V Admitt ing Diagno sis(es ): ACCESS ION #: [id number] INDICA TION: pain COMPAR TYLER: None [...] at 2023 12:35: 42 PM Page [address] (Imaging) [address] [place], [address], 05/07/2024 09:12:00 05/10/20 24 XR, knee No observ ation record ed. [email or web address] [facility] [place] [address], [place], [address], 05/10/2024 13:41:54 06/21/20 24 XR, hip + pelvi s, unila teral No observ ation record ed. [email or web address] [facility] [place] [address], [place], [address], 06/21/2024 12:02:31 07/12/20 24 07/12/2024 CT, abdom en + pelvi s, w/o contr ast No observ ation record ed. [address], [place], [address], 07/15/2024 11:27:52 07/16/20 24 07/16/2024 CT, abdom en + pelvi s, w/o contr ast No observ ation record ed. [address], [place], [address], 07/17/2024 09:02:10 08/11/20 24 08/11/2024 CT, abdom en + pelvi s, w/o contr ast No observ ation record ed. [address], [place], [address], 08/12/2024 09:33:09 Result Notes None recorded. 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 229125957 Active 2017 Not Available [facility] 3 01:10:47 Chronic back pain 904811231 Active 2022 Not Available [facility] 3 01:10:47 Hyperchol esterolem ia 83325248 Active 2017 Not Available [facility] 3 01:10:47 Seborrhei c dermatiti s of scalp 802478193 Active 2022 Not Available [facility] 3 01:10:47 Chronic physical disabilit y 034523933 Active 2018 Not Available [facility] 3 01:10:47 History of deep vein thrombosi s 373474006 Active 2017 Not Available [facility] 3 01:10:47 Heartburn 51522301 Active 2017 Not Available [facility] 3 01:10:47 Ultrasoun d scan abnormal 502242803 Active 2020 [facility] Available [facility] 3 01:10:47 Hypertrop hy of nasal turbinate s 44327223 Active 2021 Not Available [facility] 3 01:10:47 Sensorine ural hearing loss of bilateral ears 821229312 Active 2021 Not Available [facility] 3 01:10:47 Periphera l venous insuffici ency 41447424 Active 2020 Not Available [facility] 3 01:10:47 Myocardia l infarctio n 97437127 Completed 201705/08/2018 Not Available [facility] 3 01:10:48 Stable angina 475623561 Active 2017 Not Available [facility] 3 01:10:48 End stage renal failure on dialysis 490474990 Active 2019 Not Available [facility] 3 01:10:48 Degenerat ion of lumbar intervert ebral disc 05736267 Active 2018 Not Available [facility] 3 01:10:48 Gastroeso phageal reflux disease without esophagit is 784886363 Active 2017 Not Available [facility] 3 01:10:48 Anemia 471563694 Active 2017 Not Available [facility] 3 01:10:48 Chronic low back pain 726411370 Active 2018 Not Available [facility] 3 01:10:48 Pain in toe 380608463 Active 2018 Not Available [facility] 3 01:10:48 Pain in toe 562437113 Active 2018 Not Available [facility] 3 01:10:48 Right upper quadrant pain 572834314 Active 2020 Not Available [facility] 3 01:10:48 Type 2 diabetes mellitus without complicat ion 005367013 Completed 201701/10/2019 Not Available [facility] 3 01:10:48 Pain in left foot 97200657888 9107 Active 2019 Not Available [facility] 3 01:10:48 Vitamin D deficienc y 89948504 Active 2017 Not Available [facility] 3 01:10:49 Seasonal allergic rhinitis 842833781 Active 2017 Not Available [facility] 3 01:10:49 Sinusitis 82393521 Active 2021 Not Available [facility] 3 01:10:49 Hypertens bianca disorder 79332314 Active 2017 Not Available [facility] 3 01:10:49 Osteoarth ritis 028022842 Active 2019 Not Available [facility] 3 01:10:49 Umbilical hernia 267591388 Active 2018 Not Available [facility] 3 01:10:49 Vertigo 846108276 Active 2021 Not Available [facility] 3 01:10:49 Abrasion and/or friction burn of skin 342547991 Active 2018 Not Available [facility] 3 01:10:49 Chronic sinusitis 12289322 Active 2021 Not Available [facility] 3 01:10:49 Multiple benign melanocyt ic nevi 492321654 Active 2017 Not Available [facility] 3 01:10:50 Deep venous thrombosi s of lower extremity 092247474 Active 2022 Not Available [facility] 3 01:10:50 Dizziness 078284012 Active 2017 Not Available [facility] 3 01:10:50 Dysphagia 48808197 Active 2021 Not Available [facility] 3 01:10:50 Obesity 691761055 Active 2017 Not Available [facility] 3 01:10:50 Ketoacido sis due to type 1 diabetes mellitus 898003806 Active 2019 Not Available [facility] 3 01:10:50 Nausea 114020585 Active 2021 Not Available [facility] 3 01:10:50 Congestiv e heart failure 64849746 Active 2017 Not Available [facility] 3 01:10:50 Diabetic periphera l neuropath y 132544394 Active 2017 Not Available [facility] 3 01:10:51 Asymmetri nikos hearing loss 103788707 Active 2021 Not Available [facility] 3 01:10:51 Chronic kidney disease stage 4 398592789 Completed 201707/29/2020 Not Available [facility] 3 01:10:51 Chronic kidney disease stage 5 622103370 Active 2019 Not Available [facility] 3 01:10:51 Uncontrol led type 2 diabetes mellitus 401794826 Completed 201705/16/2019 Aditya Castro MD [address] [facility] [address] [address], [place], [address] , [facility] 4 09:03:03 Gastritis 5372106 Active 2021 Not Available [facility] 3 01:10:51 End-stage renal disease 15368503 Active 2019 Not Available [facility] 3 01:10:51 Type 1 diabetes mellitus 27751598 Active 2018 Not Available [facility] 3 01:10:52 Atrial fibrillat ion 30020737 Active 2017 Not Available [facility] 3 01:10:52 Hyperlipi demia 30633887 Active 2017 Not Available [facility] 3 01:10:52 Heart disease 84099647 Active 2017 Not Available [facility] 3 01:10:52 Hyperpara thyroidis m 01429990 Active 2018 Not Available [facility] 3 01:10:52 Nasal congestio n 27319772 Active 2021 Not Available [facility] 3 01:10:52 Diabetes mellitus 27453923 Active 2017 Not Available [facility] 3 01:10:52 Obstructi ve sleep apnea syndrome 29064232 Active 2018 Not Available [facility] 3 01:10:53 Epigastri c pain 46988596 Active 2021 Not Available [facility] 3 01:10:53 Chronic idiopathi c constipat ion 65612214 Active 2020 Not Available [facility] 3 01:10:53 Corneal abrasion 16171721 Active 2018 Not Available [facility] 3 01:10:53 Dystrophi a unguium 33811850 Active 2018 Not Available [facility] 3 01:10:53 Gout 57445955 Active 2017 Not Available [facility] 3 01:10:53 Chronic renal failure 82597527 Completed 201705/08/2018 Not Available [facility] 3 01:10:54 Skin lesion 62024818 Active 2017 Not Available [facility] 3 01:10:54 Hypertrig lyceridem ia 944778726 Active 2022 Aditya Castro MD [address], [place], [address] , [employer] 3 16:04:08 Chronic constipat ion 642913225 Active 2022 Aditya Castro MD [address], [place], [address] , [employer] 3 16:45:46 Cough 89847647 Active 2022 Aditya Castro MD [address], [place], [address] , [employer] 3 12:45:44 Bronchiti s 93550431 Active 2022 Aditya Castro MD [address], [place], [address] , [employer] 3 09:22:50 Allergic rhinitis 92891067 Active 2022 Aditya Castro MD [address], [place], [address] , [employer] 3 09:28:39 Allergic contact dermatiti s 952673180 Active 2022 Aditya Castro MD [address], [place], [address] , [employer] 3 16:06:02 Tinea cruris 269744072 Active 2022 Aditya Castro MD [address] [address], [place], [address] , [facility] 3 16:06:15 Acute bacterial sinusitis 66028944 Active 2023 KATIE Chen [address], [place], [address] , [facility] 4 09:55:25 Ulcer of mouth 10898617 Active 2023 Aditya Castro MD [address], [place], [address] , [facility] 4 09:03:52 Onychomyc osis of toenails 016653171 Active 2023 Chris Linda DPM [address], [place], [address] , [facility] 4 12:24:55 Folliculi tis 62408626 Active 2023 Aditya Castro MD [address] [address], [place], [address] , [facility] 4 10:26:36 Pain of right knee joint 54681223260 4100 Active 2023 Aditya Castro MD [address], [place], [address] , [facility] 4 10:31:07 Bleeding of ear canal 900203339 Active 2023 Aditya Castro MD [address], [place], [address] , [facility] 4 10:40:38 Acute left otitis media 265677645 Active 2023 Rohit Jessica MD [address], [place], [address] , [facility] 4 16:04:39 Thoracic back pain 131039521 Active 2023 Aditya Castro MD [address] [address], [place], [address] , [facility] 4 16:28:59 Pain of right shoulder blade 429648867 Active 2023 Aditya Castro MD [address] [address], [place], [address] , [facility] 4 16:30:04 Degenerat ion of thoracolu mbar intervert ebral disc 36801364 Active 2023 Aditya Castro MD [address] [address], [place], [address] , [facility] 4 16:30:54 Hypothyro idism 64529781 Active 2023 Aditya Castro MD [address] [address], [place], [address] , [facility] 4 16:34:29 Uncontrol led type 2 diabetes mellitus 083108056 Active 2023 Aditya Castro MD [address] [address], [place], [address] , [facility] 4 09:03:03 Bilateral osteoarth ritis of knees 59175801362 9107 Active 2023 Sofia Newby null, [place] [facility] 4 11:42:16 Pain of left knee joint 89680710237 4107 Active 2023 LESLY Gambino [address], [facility] [address], [place], [address] , [facility] 4 13:42:14 Pain in right hip joint 79622085108 9102 Active 2023 Lisa Lopez CNA null, [place] [facility] 4 11:11:43 Trochante margarita bursitis of right hip 44296134672 9100 Active 2023 LESLY Gambino [address], [place], [address] , [employer] [facility] [employer] 4 12:00:40 Gallstone 399230006 Active 2023 Aditya Castro MD [address], [place], [address] , [facility] [facility] [employer] 4 11:21:33 Right flank pain 895116613 Active 2023 Aditya Castro MD [address], [place], [address] , [employer] [facility] [employer] 4 11:29:38 Kidney stone 94988243 Active 2023 Aditya Castro MD [address], [place], [address] , [employer] [facility] [employer] 11:31:01 Notes:blood clots, coronary artery disease, head trauma or injury, kidney disease, seizures, use of blood thinners, balance problems, numbness or tingling, loss of memory, swelling in legs, shortness of breath, muscle pain, back/neck pain, swollen or painful joints, excessive thirst, dry mouth, sleep apnea, wears glasses Some problems listed in Document: #[id number] could not be added to this patient's chart. Please review this document and add these problems to the patient's chart manually as needed. Problem Notes None recorded. Procedures Surgical History Date Name Laterality Status Provider Name and Address Organization Details Recorded Time 05/02/20 24 Nail Debridement completed Chris Linda DPM [address], [place], [address], [employer] [facility] [employer] 05/20/2024 09:31:13 03/11/20 24 Nail Debridement completed Chris Linda DPM [address], [place], [address], [facility] [employer] 03/11/2024 12:35:50 03/11/20 24 Wound Care-Podiatry completed Chris Linda DPM [address], [place], [address], [email or web address] 03/11/2024 12:34:57 01/08/20 24 Wound Care-Podiatry completed Chris Linda DPM [address], [address], [place], [address], [email or web address] 01/08/2024 12:26:31 12/25/19 24 Medicare Wellness CPT Code, subsequent completed Beth Willis RN [facility] 12/25/2023 15:24:37 11/06/19 24 Medicare Wellness CPT Code, subsequent cancelled November LUAN Willis [email or web address] 11/03/2023 10:10:00 01/08/20 22 SEPTOPLASTY (SURG) completed Not Available [facility] 10/19/2022 01:16:48 01/22/20 21 Cardiac Cath completed Not Available [facility] 023 01:06:21 reduction of nasal turbinate completed Not Available [facility] 10/19/2022 01:06:21 procedure on heart completed Lisa Lopez CNA [email or web address] 05/10/2024 11:11:45 Imaging Results None recorded. Procedure Notes None recorded. Medical Equipment None Reported. Allergies Allergen ID Allergen Name Allergen Category Reaction Reaction Severity Criticality Documentation Date Start Date Code Code System Note Provider Name and Address Organization Details Recorded Time 1834 Iodinated contrast media (substanc e) medicatio n rash severe Not available 10/19/2022 84876 2004 SNOMED Not Available [facility] 3 01:16:23 1835 Brilinta medicatio n rash severe Not available 10/19/2022 44700 36 RxNorm Not Available [facility] 3 01:16:23 1836 allopurin ol medicatio n other severe Not available 10/19/2022 519 RxNorm Not Available [facility] 3 01:16:23 Medications Name Sig Start Date [...] mg by injectio n route. 2023 active [facility]: 0003-04 94-20 Not Available Not Available Not [...] with needle 1 mL 31 gauge x 01/03 completed Not Available Not Available Not Available [...] Insulin aspart 100 unit/mL (3 mL) subcutaneo 10/11 completed Not Available Not Available Not [...] Last Updated DateTime 177.8 cm 38 kg/m2 516793. 98 g 98.4 [degF] 70 /min 99 % 99 % 148 mm[Hg] 80 mm[Hg] [place] Gil [email or web address] 4 15:51:21 Date Recorded Respiratory rate Provider Name a nd Address Organization Details Last Updated DateTime 05/21/2024 20 /min Lisa Gonzáles [address] [facility] [address], [address], [email or web address] 05/21/2024 16:17:14 Social History Question Answer Notes LastModified by Organization Details LastModified Time Tobacco Smoking Status Never Smoker Not Available [facility] 10/19/2022 01:04:37 Do You Have An Advance Directive? No MIGRATION.0301 [id number] Information not available 10/19/2022 What Is Your Level Of Alcohol Consumption? None MIGRATION.0301 [id number] Information not available 10/19/2022 Are You Blind Or Do You Have Difficulty Seeing? No MIGRATION.0301 [id number] Information not available 10/19/2022 Is Blood Transfusion Acceptable In An Emergency? Yes Information not available 12/07/2023 What Is Your Level Of Caffeine Consumption? Occasional MIGRATION.0301 [id number] Information not available 10/19/2022 How Much Tobacco Do You Chew? None MIGRATION.0301 [id number] Information not available 10/19/2022 What Is Your Code Status? Full Code Information not available 12/07/2023 In The 14 Days Before Symptom Onset, Have You Had Close Contact With A Laboratory-confi rmed COVID-19 While That Case Was Ill? No MIGRATION.0301 [id number] Information not available 10/19/2022 In The 14 Days Before Symptom Onset, Have You Had Close Contact With A Person Who Is Under Investigation For COVID-19 While That Person Was Ill? No MIGRATION.0301 [id number] Information not available 10/19/2022 Are You Deaf Or Do You Have Serious Difficulty Hearing? No MIGRATION.0301 [id number] Information not available 10/19/2022 What Type Of Diet Are You Following? CARDIAC And Renal MIGRATION.0301 [id number] Information not available 10/19/2022 Which Illicit Or Recreational Drugs Have You Used? NONE MIGRATION.0301 940395 Information not available 10/19/2022 Do You Or Have You Ever Used E-cigarettes Or Vape? Never Used Electronic Cigarettes MIGRATION.0301 285090 Information not available 10/19/2022 What Is The Highest Grade Or Level Of School You Have Completed Or The Highest Degree You Have Received? [id number] 2 Years MIGRATION.0301 [id number] Information not available 10/19/2022 What Is Your Occupation? DISABLED MIGRATION.0301 766869 Information not available 10/19/2022 Have There Been Any Changes To Your Family Or Social Situation? No Information not available 12/07/2023 Are There Any Guns Present In Your Home? No MIGRATION.0301 361607 Information not available 10/19/2022 Do You Use Insect Repellent Routinely? No Information not available 12/07/2023 Where Do You Live? SingleLevelHouse Information not available 12/07/2023 Advance Directive- Providers Has Reviewed Directive And Consents To Follow Them (insert Provider Name With Any Objectives In Notes Field) No MIGRATION.0301 [id number] Information not available 10/19/2022 Presence Of Domestic [...] Do You Have A Medical Power Of Transit Man? No Information not available 12/07/2023 What Was The Date Of Your Most Recent Tobacco Screening? 12/25/2023 [email or web address] Information not available 12/25/2023 Do You Have Any Pets? Yes Information not available 12/07/2023 What Is Your Relationship Status? Single MIGRATION.0301 [id number] Information not available 10/19/2022 Do You Use Your Seat Belt Or Car Seat Routinely? Yes MIGRATION.0301 [id number] Information not available 10/19/2022 Do You Have Smoke And Carbon Monoxide Detectors In Your Home? Yes Information not available 12/07/2023 Are You Passively Exposed To Smoke? No Information not available 12/07/2023 Do You Or Have You Ever Used Smokeless Tobacco? Never Used Smokeless Tobacco MIGRATION.0301 [id number] Information not available 10/19/2022 Are There Any Smokers In Your House? No Information not available 12/07/2023 Do You Feel Stressed (tense, Restless, Nervous, Or Anxious, Or Unable To Sleep At Night)? [id number] MIGRATION.0301 795808 Information not available 10/19/2022 Do You Use Sunscreen Routinely? No Information not available 12/07/2023 Have You Recently Traveled Abroad? No MIGRATION.0301 [id number] Information not available 10/19/2022 Are You Currently In School? No MIGRATION.0301 881123 Information not available 10/19/2022 Sex: Unknown Functional Status Question Answer Note LastModified by Organizat ion Details LastModified Time Do you have difficulty walking or climbing stairs? No [id number] Information not available 10/19/2022 Do you have difficulty doing errands alone? No [id number] Information not available 10/19/2022 Do you have difficulty dressing or bathing? No [id number] 26 Information not available 10/19/2022 What is your exercise level? Occasional [id number] 26 Information not available 10/19/2022 Mental Status Question Answer Note LastModified by Organizat ion Details LastModified Time Do you have difficulty concentrating, remembering or making decisions? No [id number] Information not available 10/19/2022 Family History Relationship Description Onset Age of this Age Resolved Age Notes LastModified by Organization Details LastModified Time Father Heart disease [id number] [id number] Not available 10/19/2022 01:06:25 Father Hypertensive disorder [id number].900 [id number] Not available 10/19/2022 01:06:25 Notes:cancer-mother NO ENT [...] HAVE YOU BEEN HOSPITALIZED OR SEEN IN [facility] IN THE PAST YEAR [...] virus, quadrivalent, PF 3 completed BERNARDO Reddy [place] [facility] 07/03/2023 11:25:39 pneumococcal polysaccharide PPV23 0 completed Not Available [facility] 10/19/2022 01:16:16 Tdap 0 completed Not Available [facility] 10/19/2022 01:16:16 Influenza, split virus, quadrivalent, PF 9 completed Not Available [facility] 10/19/2022 01:16:16 Influenza, split virus, quadrivalent, PF 2 completed Not Available [facility] 10/19/2022 01:16:16 Influenza, split virus, quadrivalent, PF 1 completed Not Available [facility] 10/19/2022 01:16:16 Past Encounters Encounter ID Performer Location Encounter Start Date Encounter Closed Date Diagnosis/Indication Diagnosis SNOMED-CT Code Diagnosis ICD10 Code [id number] Chris Linda DPM [facility] [place] [address] [place] [address] 05/02/2024 10:29:22 05/20/2024 11:32:52 Onychomycosis of toenails 936518492 B35.1 Peripheral venous insufficiency 27609816 I87.2 Dystrophia unguium 86714 009 L60.3 Abrasion a nd/or friction burn of skin 190565910 T14.8XXA Diabetic p eripheral neuropathy 831682558 E11.40 [id number] Aditya Castro MD [address] [address] 05/07/2024 09:01:36 05/07/2024 09:40:15 Gout 36279601 M10.9 Vitamin D deficiency 347 33902 E55.9 Hyperparathyroidism 6699 9008 E21.3 Uncontroll ed type 2 diabetes mellitus 495974140 E11.65 Hypertriglyceridemia 302 303057 E78.2 Hyperlipidemia 92750659 E78.5 Chronic constipation 236 462498 K59.09 Obesity 122150930 E66.9 Pain of ri ght knee joint 5248513692 70734 M25.561 Screening for malignant neoplasm of prostate 735139702 Z12.5 Chronic back pain 562287 002 G89.29 Screening colonoscopy 44 7775672 Z12.[id number] [facility] [place] [address] [place] [address] 05/10/2024 10:46:13 05/10/2024 11:48:23 Pain of right knee joint 9724413527 51358 M25.561 Bilateral osteoarthritis of knees 3576337569 75138 M17.0 Pain of le ft knee joint 1368002520 95269 M25.744 [id number] Aditya Castro MD [facility] [address] [address] 05/21/2024 15:45:57 05/21/2024 16:21:32 Gout 77538442 M10.9 Vitamin D deficiency 347 88901 E55.9 Uncontroll ed type 2 diabetes mellitus 657878481 E11.65 Hypertriglyceridemia 302 575389 E78.2 Hyperlipidemia 63654394 E78.5 Chronic constipation 236 946124 K59.09 Obesity 613519846 E66.9 Pain of ri ght knee joint 8872945532 86359 M25.561 Chronic back pain 563439 002 G89.29 Health Concerns Section Related Observation LastModified by Organization Detai ls LastModified Time None Recorded Concern Status LastModified by Organization Details LastModified Time None Recorded Payers Encounter Date Sequence Insurance Name Policy Number Policy Ge Covered Member ID Ge Member ID Guarantor Name 05/21/2024 2 [place] WHEN MEDICARE OR MEDICARE REPLACEMENT PRIMARY) Juvenal Daigle [id number] Juvenal Daigle 05/21/2024 1 [facility] (MEDICARE REPLACEMENT/AD VANTAGE - PPO) [id number] Juvenal Daigle [id number] Juvenal Daigle Notes Date Note Type Note Provider Name and Address Organization Details Recorded Time 05/21/2024 text/html Pt is here for f [...] Pt is also f/u with Nephro at [place] for kidney transplant team.Pt is f/u with Endo for his DM and hyperparathyroidis m.Pt has seen Derm at [facility] for his multiple moles and no concerns [...] he has not worked. Aditya Castro MD [address] [place] [address], [place], [address], [place] - [facility] [employer] 05/21/2024 16:20:25
--- OUTSIDE RECORDS SUMMARY | 2024-08-18 13:02 | XMS_ITS | Clinical Summary ---
Author Organization [facility] Address [address] [place] [address] Care Team Providers Care General Studies Program Chair Name Role Phone Aditya Castro MD Primary Care Provider [phone] Alondra Lambert RN Unavailable [phone] Shannon Brock MD, [place] P. Unavailable [phone] Leandro Reyes MD Unavailable [phone] Allergies Active Allergy Reactions Criticality Noted Date Comments Allopurinol Other (See comments),Shortness of breath High 07/31/2019 Shuts my kidneys down per patient. Shuts my kidneys down per patient. Chlorhexidine Flushing (skin),Other (See comments) High 06/21/2022 CHG bath soap, Patient skin peels all over and becomes tender Skin peels all over and becomes tender Chlorhexidine Gluconate Blisters High 06/21/2022 With CHG bath Iodinated Contrast Media Rash Medium 07/10/2017 Other Rash Medium 10/23/2019 Rash Iodinated Diagnostic Agents Ticagrelor Rash Medium 05/04/2017 Rash Medications pen needle, diabetic (BD Ultra-Fine Short Pen Needle) 31 gauge x 5/16 needle 01/31/20 18 Active aspirin 81 mg enteric coated tabletIndications:M yocardial Reinfarction Prevention Take 1 tablet (81 mg total) by mouth daily 11/08/19 14 Active cholecalciferol (VITAMIN D-3) 2000 unit tabletIndications:V itamin D Deficiency Take 25 tablets (50,000 Units total) by mouth once a week Active calcitRIOL (ROCALTROL) 0.25 mcg capsuleIndications: hypophosphatemia Take 1 capsule (0.25 mcg total) by mouth daily Active atorvastatin (LIPITOR) 80 mg tabletIndications:h yperlipidemia Take 1 tablet (80 mg total) by mouth daily Active calcium acetate,phosphat bind, (PHOSLO) 667 mg capsuleIndications: hypocalcemia Take 1 capsule (667 mg total) by mouth 4 (four) times a day (with meals and nightly) With meals and snack Active EZETIMIBE ORAL Take 10 mg by mouth daily Active omeprazole (PriLOSEC) 20 mg capsuleIndications: GI Bleed,prevention Take 1 capsule (20 mg total) by mouth daily Active cetirizine (ZyrTEC) 10 mg tabletIndications:A llergic Rhinitis Take 1 tablet (10 mg total) by mouth daily as needed for allergies Active insulin lispro (HumaLOG, ADMELOG) 100 unit/mL vial for injectionIndication s:type 2 diabetes mellitus THIS IS FOR THE INSULIN PUMP: Continue Omnipod 5 insulin pump with AgeCheqcom G6 CGM at home settings: TIME BASAL RATE TOTAL BASAL DAILY DOSE: 65.85 0330 1.7 units/hour 0800 0.8 units/hour 1999 5.8 units/hour 06/29/20 22 Active famotidine (PEPCID) 40 mg tabletIndications:g astroesophageal reflux disease,Heartburn Prevention Take 0.5 tablets (20 mg total) by mouth nightly Active gemfibroziL (LOPID) 600 mg tabletIndications:h ypertriglyceridemia Take 1 tablet (600 mg total) by mouth 2 (two) times a day before breakfast and lunch Active colchicine (COLCRYS) 0.6 mg tabletIndications:p revention of acute gout attack Take 1 tablet (0.6 mg total) by mouth 3 (three) times a week Monday, Monday, Monday Active icosapent ethyL (VASCEPA) 1 gram capsuleIndications: hypertriglyceridemi a Take 2 capsules (2 g total) by mouth 2 (two) times a day Active acetaminophen 500 mg capsuleIndications: Pain Take 1 capsule (500 mg total) by mouth every 6 (six) hours as needed for pain 11/03/19 24 Active metoprolol tartrate (LOPRESSOR) 25 mg immediate release tabletIndications:h ypertension Take 0.5 tablets (12.5 mg total) by mouth 2 (two) times a day 30 tablet 1 11/03/19 24 Active HYDROcodone-acetami nophen (NORCO) 5-325 mg per tabletIndications:P ain Take 1 tablet by mouth every 4 (four) hours as needed for pain 30 tablet 11/03/19 24 Active Additional Information Patient not taking.Reported on 07/29/2024 levothyroxine (SYNTHROID) 25 mcg tabletIndications:h ypothyroidism Take 1 tablet (25 mcg total) by mouth senior teradata developer before breakfast 30 tablet 1 11/04/19 24 Active warfarin (COUMADIN) 2 mg tabletIndications:M echanical Valve Thromboembolism Prophylaxis Take 4 mg (2 tabs) daily with dinner, or as directed 60 tablet 1 11/03/19 24 Active torsemide (DEMADEX) 100 mg tabletIndications:E favio Take 1 tablet (100 mg total) by mouth daily 30 tablet 1 11/03/19 24 Active amLODIPine (NORVASC) 10 mg tablet Active amiodarone (PACERONE) 200 mg tablet Active cyclobenzaprine (FLEXERIL) 10 mg tablet 07/10/20 24 Active cycloSPORINE (RESTASIS) 0.05 % ophthalmic emulsion 07/19/20 24 Active valACYclovir (VALTREX) 500 mg tablet Active erythromycin (ILOTYCIN) ophthalmic ointment 06/25/20 24 Active febuxostat (ULORIC) 40 mg tablet 07/13/20 24 Active doxycycline monohydrate (MONODOX) 100 mg capsule Active Gvoke HypoPen 1-Pack 1 mg/0.2 mL auto-injector Active insulin aspart (NovoLOG) 100 unit/mL vial for injection Active BASAGLAR 100 unit/mL (3 mL) pen for injection 05/16/20 24 Active HumuLIN N 100 unit/mL (3 mL) pen for injection Active ketoconazole (NIZORAL) 2 % shampoo APPLY EXTERNALLY 2 TO 3 TIMES EVERY WEEK NEEDED 04/23/20 19 Active ketoconazole (NIZORAL) 2 % cream APPLY TO THE AFFECTED AREA(S) toenails BY TOPICAL ROUTE ONCE DAILY Active tamsulosin (FLOMAX) 0.4 mg extended release capsule TAKE 1 CAPSULE BY MOUTH TWICE DAILY DIRECTED 07/15/20 24 Active lancets 30 gauge misc OneTouch Delica Lancets 30 gauge Active Linzess 72 mcg capsule Take 1 capsule every day by oral route as directed for 90 days. 07/10/20 23 Active metoprolol XL (TOPROL-XL) 25 mg extended release tablet 06/17/20 24 Active nitroglycerin (NITROSTAT) 0.4 mg SL tablet 12/28/19 18 Active peg [id number]-im ycerin (ARTIFICAL TEARS) 1-0.2-0.2 % ophthalmic solution 1 drop 4 (four) times a day 07/07/20 22 Active potassium chloride ER 20 mEq CR tablet Active Active Problems Problem Noted Date Diagnosed Date End stage renal disease ([facility]) 07/29/2024 Nonrheumatic aortic valve stenosis 11/22/2023 Status post aortic valve replacement 11/22/2023 Status post coronary artery bypass grafting 10/2023 CAD in [place] artery 10/13/2023 Anemia 06/22/2022 Assessment & Plan (06/29/2022 10:12 AM RUG [facility]OOKER HAND): Stable, likely 2/2 anemia from ESRD, no evidence of bleeding. Underwent CT c/a/p without internal hematoma. - Monitor and trend Hb. Assessment & Plan (06/23/2022 4:47 PM CDT): Stable, likely 2/2 anemia from ESRD, no evidence of bleeding. Underwent CT c/a/p without internal hematoma. - Monitor and trend Hb. Assessment & Plan (06/22/2022 8:15 PM CDT): -Likely due to anemia from ESRD, continue trending Hb, no evidence of bleeding. Underwent CT c/a/p without internal hematoma. -Monitor and trend Hb. ESRD (end stage renal disease) ([facility]) 022 Assessment & Plan (06/29/2022 10:12 AM RUG [facility]OOKER HAND): - Renal consulted, s/p CRRT in the ICU now back on PD. Tolerated well and nephrology following - Trialysis catheter removed - Continue vitamins for renal bone mineral disease. Assessment & Plan (06/28/2022 3:29 PM RUG [facility]OOKER [employer]): - Renal consulted, s/p CRRT in the ICU now back on PD. Tolerated well and nephrology following - Trialysis catheter removed - Continue vitamins for renal bone mineral disease. Assessment & Plan (06/22/2022 8:16 PM CDT): -Renal consulted, s/p CRRT in the ICU now back on PD. -Trialysis catheter still in place. -Continue vitamins for renal bone mineral disease. Acute on chronic HFrEF (hear t failure with reduced ejection fraction) 06/22/2022 Assessment & Plan (06/29/2022 10:12 AM RUG [facility]OOKER HAND): C/b cardiogenic shock requiring impella in the setting of cath and AHRF 2/2 pulmonary edema, now resolved. TTE demonstrating recovered EF 65% with grade I diastolic dysfunction. - metop as above - continue low dose losartan 12.5mg daily, ok per nephro. Tolerating well - volume management per PD Assessment & Plan (06/28/2022 3:29 PM RUG HOOKER HAND): C/b cardiogenic shock requiring impella in the setting of cath and AHRF 2/2 pulmonary edema, now resolved. TTE demonstrating recovered EF 65% with grade I diastolic dysfunction. - metop as above - continue low dose losartan 12.5mg daily, ok per nephro. Tolerating well - volume management per PD Assessment & Plan (06/22/2022 8:18 PM CDT): -With acute exacerbation complicated by pulmonary edema since resolved. -Repeat TTE following Impella removal showed recovered EF of 65% with grade I diastolic dysfunction. -Continue metoprolol tartrate, start GDMT per cardiology. Atrial fibrillation (CMS/HCC) 06/22/2022 Assessment & Plan (06/29/2022 10:12 AM RUG HOOKER HAND): Converted to NSR overnight on 06/24. CHADsVASc of 4 not on anticoagulation prior to admission. - cardiology consulted - recommended ongoing rate control - holding off on a/c with high risk for bleeding while on DAPT - reduced metop to 25mg BID in the setting of hypotension, HR 70s NSR Assessment & Plan (06/28/2022 3:30 PM RUG HOOKER HAND): Converted to NSR overnight on 06/24. CHADsVASc of 4 not on anticoagulation prior to admission. - cardiology consulted - recommended ongoing rate control - holding off on a/c with high risk for bleeding while on DAPT - reduced metop to 25mg BID in the setting of hypotension, HR 70s NSR Assessment & Plan (06/22/2022 8:20 PM CDT): -Currently rated controlled with metoprolol, CHADsVASc of 4 not on anticoagulation prior to admission. -Follow cardiology for initiation of AC. NSTEMI (non-ST elevated myocardial infarction) ( [facility]) 06/22/2022 Assessment & Plan (06/29/2022 10:11 AM RUG HOOKER HAND): With recurrent chest pain post-cath. He has multiple risk factors for CAD, now s/p complex PCI to LCx and OM bifurcation with MARIELLA, though still with significant residual disease. CP free since 06/24. - Continue DAPT with aspirin, Plavix and atorvastatin - continue home imdur per cards, holding ranolazine in the setting of hypotension - metop, ARB as above - continue tele, feeling well at this time with no chest pain Pt overall improving, DC to rehab today Assessment & Plan (06/28/2022 3:30 PM RUG [facility]OOKER HAND): With recurrent chest pain post-cath. He has multiple risk factors for CAD, now s/p complex PCI to LCx and OM bifurcation with MARIELLA, though still with significant residual disease. CP free since 06/24. - Continue DAPT with aspirin, Plavix and atorvastatin - continue home imdur per cards, holding ranolazine in the setting of hypotension - metop, ARB as above - continue tele, feeling well at this time with no chest pain Pt overall improving, plan for rehab likely dc tomorrow as pt has been accepted Assessment & Plan (06/22/2022 8:21 PM CDT): -Patient with multiple risk factors, s/p complex PCI to LCx and OM bifurcation with MARIELLA. -Continue DAPT with aspirin, Plavix and atorvastatin. Cardiogenic shock 06/22/2022 Assessment & Plan (06/29/2022 10:11 AM RUG [facility]OOKER HAND): Secondary to NSTEMI, s/p Impella since removed on 06/10. Resolved. Assessment & Plan (06/23/2022 4:55 PM CDT): Secondary to NSTEMI, s/p Impella since removed on 06/10. Resolved. Assessment & Plan (06/22/2022 8:22 PM CDT): -Secondary to NSTEMI, s/p Impella since removed on 06/10. Acute hypoxemic respiratory failure 06/09/2022 Assessment & Plan (06/29/2022 10:12 AM [facility]UG [facility] [employer]): Secondary to ACS and flash pulmonary edema, since resolved and extubated on 06/19. Patient passed barium swallow on 06/21. Assessment & Plan (06/23/2022 4:47 PM CDT): Secondary to ACS and flash pulmonary edema, since resolved and extubated on 06/19. Patient passed barium swallow on 06/21. Assessment & Plan (06/22/2022 8:11 PM CDT): -Secondary to ACS and flash pulmonary edema, since resolved and extubated on 06/19. Patient passed barium swallow on 06/21. Assessment & Plan (06/20/2022 5:55 PM CDT): Mr. Daigle is a 51 y/o M with medical history most significant for CAD, DM1, ESRD on PD, initially presenting for complex PCI, found to have cholecystitis, now in CCU with cardiogenic shock. Pulmonary is consulted for hypoxemic respiratory failure. ?? Problem List: - Acute hypoxemic respiratory failure, secondary to cardiogenic pulmonary edema, atelectasis - Cardiogenic shock, NSTEMI s/p complex PCI, impella - BEN on home CPAP - Acute cholecystitis, meropenem/vancomycin - ESRD on home PD Successfully extubated yesterday and now weaned to room air; no acute respiratory complaints at this time and appears euvolemic on exam. Discussed that he should have his family bring in his home CPAP machine today if possible. Recommendations: --Recommend that patient's family bring in his home CPAP machine and use home settings while inpatient --Incentive spirometry, mobilize as able (up to chair daily, PT as able) --Continue antibiotics per primary team --Continue to keep as dry as possible Assessment & Plan (06/19/2022 2:07 PM CDT): Mr. Daigle is a 51 y/o M with medical history most significant for CAD, DM1, ESRD on PD, initially presenting for complex PCI, found to have cholecystitis, now in CCU with cardiogenic shock. Pulmonary is consulted for hypoxemic respiratory failure. ?? Problem List: - Acute hypoxemic respiratory failure, secondary to cardiogenic pulmonary edema, atelectasis - Cardiogenic shock, NSTEMI s/p complex PCI, impella - BEN on home CPAP - Acute cholecystitis, meropenem/vancomycin - ESRD on home PD Difficulty with PSV trials thus far due to reported agitation as well as tachypnea, which is likely complicated by need for PD following clotting of LIJ dialysis line. Ventilator requirements remain unchanged with PEEP 8, FiO2 40%, Pplat ~20. Would recommend optimization for trial of extubation to include consideration of transition back to HD to optimize volume status and respiratory mechanics, consideration of extubation on low-dose fentanyl and precedex (answering questions appropriately with this today), and plan for extubation directly to BiPAP once optimized. Recommendations: --Attempt extubation and use BiPAP liberally; wean Fentanyl further in the moriah-extubation period. --Continue IPV to assist with mucous clearance --Continue antibiotics per primary team --Continue to keep as dry as possible Hypotension 06/03/2022 Overview (06/10/2022): Added automatically from request for surgery [id number] Abnormal cardiovascular stress test 12/29/2020 Overview (12/29/2020): Added automatically from request for surgery [id number] 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n ative artery of [place] heart with stable angina pectoris ([facility]) 05/23/2017 History of coronary artery stent placement 05/23 Macular ischemia 03/17/2017 Combined forms of age-related cataract 7 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 03/17/2017 Type 2 diabetes mellitus treated with insulin ([facility] NE/HCC) 03/25/2015 Overview (11/25/2016): Insulin treated Type II diabetes mellitus Chronic kidney disease, stage III (moderate) 12/2014 Overview (11/25/2016): Chronic kidney disease, stage 3 Benign essential hypertension 03/25/2015 Overview (11/25/2016): Benign essential HTN Hyperlipidemia 03/25/2015 Overview (11/25/2016): Hyperlipidemia Pain of finger 11/24/2014 Hypersomnia 11/22/2013 Chronic kidney disease 11/22/2013 Hypertension 01/18/2013 Type 1 diabetes mellitus 01/18/2013 Assessment & Plan (06/29/2022 10:12 AM RUG [facility]OOKER HAND): A1c well controlled on admission. He uses an insulin pump at home, since admission has been followed by endocrine service on basal bolus regimen with NPH for PD/hyperglycemic episodes. Restarted on insulin pump 06/27 by endocrine. Some hypoglycemia this am - discussed with endo, pump adjusted and appreciate recs - endo consulted, appreciate recs PUMP SETTINGS FOR DISCHARGE Continue Omnipod 5 insulin pump with Dexcom G6 CGM at home settings: TIME?BASAL RATE?TOTAL BASAL DAILY DOSE:??65.85 0330?1.7??units/hour 0800?0.8 units/hour 1999?5.8 units/hour ?? ICR: ??1:6.5 SENSITIVITY: ??1:25 IAT: ??4 hours TARGET: ??120 ?? If pump fails, give lispro 4 units once and restart insulin pump. If pump supplies are not available: -??Lantus 35 units qAM - Humalog 10 units with meals - Continue resistant correction scale TID/HS/0200 -??NPH 45 units with start of peritoneal dialysis session Assessment & Plan (06/28/2022 3:28 PM [facility]UG [facility]OOKER HAND): A1c well controlled on admission. He uses an insulin pump at home, since admission has been followed by endocrine service on basal bolus regimen with NPH for PD/hyperglycemic episodes. Restarted on insulin pump 06/27 by endocrine. Some hypoglycemia this am - discussed with endo, pump adjusted and appreciate recs - endo consulted, appreciate recs - basal bolus regimen (if no insulin pump) lantus 35 qAM premeal lispro 10u Continue resistant SSI increase NPH 45u before PD Assessment & Plan (06/22/2022 8:06 PM CDT): -Patient on insulin pump at home. -Endocrine consulted, patient currently on basal bolus regimen with NPH for hyperglycemic episodes. -Continue insulin regimen per endocrine. Encounters Date Type Department Care Team Description 08/06/2024 Documentation [facility] [address] [phone] [place] [address] Alondra Lambert RN 07/30/2024 Telephone [facility] [address] Mail[address] [phone] [place] [address] Alondra Lambert RN 07/29/2024 1:15 PM [facility] Lab [facility] [address] [place] [address] End stage renal disease (CMS/HCC) (HCC); ESRD (end stage renal disease) (CMS/HCC) (HCC) 07/29/2024 1:00 PM [facility] Office Visit [facility] Nephrology [address] [place] [address] [place] [address] Radha Bartholomew MD Pre-transplant evaluation for kidney transplant (Primary Dx); End stage renal disease (CMS/HCC) ([facility]); Status post coronary artery bypass grafting; Status post aortic valve replacement; Type 1 diabetes mellitus with chronic kidney disease on chronic dialysis ([facility]/HCC) ([facility]); CAD in [place] artery; Paroxysmal atrial fibrillation ([facility]) ([facility]) 07/29/2024 11:02 AM [facility] HAND - 07/29/2024 11:59 PM [facility] Hospital Encounter [facility] [address] [place] [address] Discharge Disposition: Discharge to home or self care 07/29/2024 10:58 AM [facility] [employer] - 07/29/2024 11:59 PM [facility] [employer] Hospital Encounter [facility] [address] [place] [address] End stage renal disease ([facility]/HCC) ([facility]) Discharge Disposition: Discharge to home or self care 07/29/2024 10:55 AM [facility] HAND - 07/29/2024 11:59 PM [facility] Hospital Encounter [facility] [address] [place] [address] End stage renal disease ([facility]/HCC) ([facility]) Discharge Disposition: Discharge to home or self care 07/29/2024 10:53 AM [facility] HAND - 07/29/2024 11:59 PM [facility] Hospital Encounter [facility] [address] [place] [address] End stage renal disease (CMS/HCC) (HCC) Discharge Disposition: Discharge to home or self care 07/29/2024 9:00 AM [facility]UG [facility] Social Work [facility] [address], [place] [address] 07/29/2024 Telephone [facility] [address] Mailstop [phone] [place] [address] Alondra Lambert, RN 07/26/2024 Telephone [facility] [id number] [place] [address] Elsie Cornejo 07/26/2024 Orders Only [facility] [address] [id number] [place] [address] Alondra Lambert, LUAN ESRD (end stage renal disease) (CMS/[facility]) ([facility]) (Primary Dx) 07/26/2024 Telephone [facility] [id number] [place] [address] Alondra Lambert, RN 07/22/2024 Telephone [facility] [id number] [place] [address] Chris Richard 06/28/2024 Telephone [facility] [id number] [place] [address] Chris Richard 06/24/2024 Telephone [facility] [id number] [place] [address] Chris Richard 06/11/2024 Orders Only [facility] Cardiology [address] [place] [id number] Karen Barnes NP 06/06/2024 Documentation [facility] [address] [address] [address] [id number] [place] [address] Melany Kelly from Last 3 Months Immunizations Name Administration Dates Next Due Influenza, Quadrivalent, Spl it, Preservative Free, Intramuscular 06/04/2022 Pneumococcal Conjugate PCV 13 12/30/2019 Pneumococcal Polysaccharide PPV23 08/26/2019 Surgical History Surgery Date Site/Laterality Comments OTHER SURGICAL HISTORY eye surg-vitrectomy APPENDECTOMY Appendectomy OPEN REDUCTION INTERNAL FIXATION ORIF KNEE SURGERY knee surgery FEMUR SURGERY APPENDECTOMY CORONARY ANGIOPLASTY WITH STENT PLACEMENT CENTRAL LINE PLACEMENT > 5 YEARS 06/18/2022 N/A AORTIC VALVE REPLACEMENT 10/17/2023 On-X mechanical AVR, CABGx3 CORONARY ARTERY BYPASS GRAFT 10/17/2023 CABGx3, AVR Medical History Medical History Date Comments Sleep apnea Hypertension Hyperlipidemia Diabetes mellitus (HCC) CAD (coronary artery disease) Chest pain SOB (shortness of breath) GERD (gastroesophageal reflux disease) Dialysis patient (HCC) ESRD on dialysis (HCC) Diabetes mellitus type I (HCC) Family History Medical History Relation Name Comments Dyslipidemia Father Heart attack Father Heart disease Father Hypertension Father Relation Name Status Comments Brother 1 Alive Brother 2 Alive Father (Age 68) Mother Alive Social History Tobacco Use Types Packs/Day Years Used Date Smoking Tobacco: Never Smokeless Tobacco: Former Tobacco Cessation:Counseling Given: Not Answered Alcohol Use Standard Drinks/Week Comments No 0 (1 standard drink = 0.6 oz pur e alcohol) OASIS D0700: Social Isolation Answer Da te Recorded Frequency of experiencing loneliness or isolatio n Never 12/01/2023 OASIS A1250: Transportation Answer Date Recorded Lack of Transportation (Medical) No 12/01/2023 Lack of Transportation (Non-Medical) No 12/01/2023 Patient Unable or Declines to Respond No 12/01/2023 OASIS B1300: Health Literacy Answer Rubens e Recorded Frequency of needing help to read materials from doctor or pharmacy Never 12/01/2023 [facility] Utilities Answer Date Recorded In the past 12 months has th e Conductor, gas, oil, or water ipsy threatened to shut off services in your home? No 08/01/2024 Social Connection and Isolation Panel [NHANES] A nswer Date Recorded In a typical week, how many times do you talk on the phone with family, friends, or neighbors? Twice a week 08/01/2024 How often do you get together with friends or re latives? Once a week 08/01/2024 How often do you attend moravian or gnosticism serv ices? Never 08/01/2024 Do you belong to any clubs o r organizations such as moravian groups, unions, fraternal or athletic groups, or school groups? No 08/01/2024 How often do you attend meet ings of the clubs or organizations you belong to? Never 08/01/2024 Are you , , di vorced, , never , or living with a partner? 08/01/2024 AUDIT-C Answer Date Recorded Q1: How often do you have a drink containing alc ohol? Never 07/29/2024 Average Number of Drinks Not on file 024 Frequency of Binge Drinking Not on file 04/2024 Overall Financial Resource Strain (CARDIA) Answe r Date Recorded How hard is it for you to pa y for the very basics like food, housing, medical care, and heating? Somewhat hard 08/01/2024 Hunger Vital Sign Answer Date Recorded Within the past 12 months, y ou worried that your food would run out before you got the money to buy more. Sometimes true Within the past 12 months, t he food you bought just didn't last and you didn't have money to get more. Sometimes true 07/2024 PRAPARE - Transportation Answer Date Re corded In the past 12 months, has l ack of transportation kept you from medical appointments or from getting medications? No 07/21 In the past 12 months, has l ack of transportation kept you from meetings, work, or from getting things needed for daily living? No 08/01/2024 Housing Stability Vital Sign Answer Rubens e Recorded In the last 12 months, was t here a time when you were not able to pay the mortgage or rent on time? No 10/16/2023 In the last 12 months, how many places have you lived? 1 10/16/2023 In the last 12 months, was t here a time when you did not have a steady place to sleep or slept in a senior care (including now)? No 10/16/2023 Housing Stability Vital Sign Answer Rubens e Recorded In the last 12 months, was t here a time when you were not able to pay the mortgage or rent on time? No 08/01/2024 In the past 12 months, how m any times have you moved where you were living? 1 08/01/2024 At any time in the past 12 m [facility], were you homeless or living in a senior care (including now)? No 08/01/2024 Personal Safety Answer Date Recorded Have you ever been in or are you currently in a harmful physical or emotional relationship or is someone making you feel afraid or unsafe? 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 Male 3:42 AM [facility] Gender Identity Not on file Sexual Orientation Not on file Obstetrics History Last Filed Vital Signs Vital Sign Reading Time Taken Comments Blood Pressure 122/75 07/29/2024 1:00 PM [facility] Pulse 116 07/29/2024 1:00 PM [facility] Temperature 36.8 ??C (98.2 ??F) 07/29/2024 1:00 PM CS T Respiratory Rate 16 12/01/2023 11:1 3 AM CDT Oxygen Saturation 96% 12/01/2023 11: 13 AM CDT Inhaled Oxygen Concentration - - Weight 121.2 kg (267 lb 1.6 oz) 07/29/2024 1:00 PM [facility] Height 177.8 cm (5' 10 ) 07/29/2024 1:00 PM [facility] Body Mass Index 38.32 07/29/2024 1:00 PM [facility] Plan of Treatment Health Maintenance Due Date Last Done Comments Albumin Creatinine Ratio, Urine 1970 Colon Cancer Screening-Colonoscopy 1968 Depression Screening 1970 Foot Exam 1968 Dilated Eye Exam 1978 Regular Well Visit/Exam 18-64 1986 Zoster Vaccine (1 of 2) 2018 Covid-19 Vaccine (2023-2 5 season) 2024 09/21/2021, 11/04/2020 Influenza Vaccine (#1) 2024 3, 07/19/2022, 06/04/2022, Additional history exists TSH Level 10/26/2024 10/27/2023, 03/21/2017 Hemoglobin A1C 01/27/2025 07/29/2024, 09/22, 06/04/2022, Additional history exists Lipid Panel 07/29/2025 07/29/2024, 09/22, 06/05/2022, Additional history exists eGFR 07/29/2025 07/29/2024, 10/19, 11/02/2023, Additional history exists Prostate Cancer Screening-PSA 07/29/2026 07/29/2024 DTaP/Tdap/Td Vaccine (4 - Td or Tdap) 10/21/2029 10/22/2019, 09/02/2017, 08/30/2016 Pneumococcal vaccine <65 (3 of 3 - PPSV23 or PCV20) 2033 02/12/2020, 12/30/2019, 08/26/2019 Hepatitis B Screening Completed 07/29/2024 Hepatitis C Screening Completed 07/29/2024 , 03/23/2017, 03/26/2015 Medical Devices Implanted Type Area [place] Worker Device Identifier Shelf Expiration Date Model / Serial / Lot Kyle Vascular Device Clsr Perclose Prostyle Sut-Mediatd Closure-Repair Sys 08551-51 - [id number] Implanted:Qty: 1 on 06/10/2022 by Champ Osborne MD PhD at [facility] Other - see comments Right: Femoral Kyle Vascular 01/19/2024 [id number] / / [id number] [employer] Mary Synergy Xd Monorail 2.5mm 48mm 144cm Delivery System 1 Access [id number] - [id number] Implanted:Qty: 1 on 06/07/2022 by Champ Osborne MD PhD at [facility] Stent [employer] Mary 10/27/2023 [id number] / / [id number] [employer] Mary Synergy Xd Monorail 3mm 24mm 144cm Delivery System 1 Access Port [id number] - [id number] Implanted:Qty: 1 on 06/07/2022 by Champ Osborne MD PhD at [facility] Stent [employer] Mary 07/28/2023 [id number] / / [id number] [employer] Mary Synergy Xd Monorail 2.5mm 12mm 144cm Delivery System 1 Access [id number] - [id number] Implanted:Qty: 1 on 06/07/2022 by Champ Osborne MD PhD at [facility] Stent [employer] Mary 05/03/2023 [id number] / [id number] / [id number] Daig Mary [id number] Device Closure Angio-Seal Vip Bondek-Plus Polyglyd L70 Cm Od6 Fr Odsec.035 In Vascular - [id number] Implanted:Qty: 1 on 01/21/2021 by Hamlet Ortega Jr., MD at [facility] Left: Groin [employer] Mary [id number] / / Kyle Vascular Device Clsr Perclose Prostyle Sut-Mediatd Closure-Repair Sys 86804-60 [id number] Implanted:Qty: 1 on 06/07/2022 by Champ Osborne MD PhD at [facility] Kyle Vascular 01/19/2024 [id number] / / [id number] Kyle Vascular Device Clsr Perclose Prostyle Sut-Mediatd Closure-Repair Sys 08866-14 [id number] Implanted:Qty: 1 on 06/07/2022 by Champ Osborne MD PhD at [facility] Kyle Vascular 11/19/2023 [id number] / / [id number] Bard Access Systems Power-Trialysis 13fr 30cm 3 Lumen Kink Resistance Symmetric Tip [id number] - [id number] Implanted:Qty: 1 on 06/07/2022 by Champ Osborne MD PhD at [facility] Right: Jugular Ramirez [place] 07/20/2024 [id number] / / [id number] [employer] Inc Impella Cp Percutaneous Left Ventricular Assist Device 2360-4288 - [id number] Implanted:Qty: 1 on 06/07/2022 by Champ Osborne MD PhD at [facility] Left: Ventricle [employer] Inc [id number] / / Bard Access Systems Power-Trialysis 13fr 20cm 3 Lumen Short Term Dialysis Straight [id number] - [id number] Implanted:Qty: 1 on 06/18/2022 at [facility] Ramirez [place] 07/20/2024 [id number] / / [id number] Rl Biomet Inc Screw Bone Slf Drl Full Thread Locking 3.5x14mm Ti 100.035.14 - [id number] Implanted:Qty: 6 on 10/17/2023 by Lorne Mcnulty MD at [facility] N/A: Sternum Rl [employer] Inc 100.035.1 4 / / Rl Biomet Inc Plate Bone Low Profile 6 Hole H Shape Sternum Ti 115.102.06 - [id number] Implanted:Qty: 2 on 10/17/2023 by Lorne Mcnulty MD at [facility] N/A: Sternum [employer]l [employer] Inc 115.102.0 6 / / Rl [employer] Inc Plate Bone Low Profile 6 Hole O Shape Sternum Ti 115.104.06 - [id number] Implanted:Qty: 1 on 10/17/2023 by Lorne Mcnulty MD at [facility] N/A: Sternum [employer]l [employer] Inc 115.104.0 6 / / On-X Intrnl Valve Coronary Aortic Mechanical On X 25mm Onxane-25 - [id number] - [id number] Implanted:Qty: 1 on 10/17/2023 by Lorne Mcnulty MD at [facility] N/A: Heart On-X Intrnl 01/22/2028 ONXANE-25 / [id number] / Rl Biomet Inc Screw Bone Slf Drl Full Thread Locking 3.5x18mm Ti 100.035.18 - [id number] Implanted:Qty: 12 on 10/17/2023 by Lorne Mcnulty MD at [facility] N/A: Sternum Rl [employer] Inc 100.035.1 8 / / Explanted Type Area [place] Worker Device Identifier Shelf Expiration Date Model / Serial / Lot Bard Peripheral Vascular Bard .25x.25in [place] Thk1.65mm Square [employer] Ptfe [id number] - [id number] Explanted:Qty: 1 on 10/17/2023 by Lorne Mcnulty MD at [facility] N/A: Heart Bard Peripheral Vascular 05/18/2026 [id number] / / Procedures Procedure Name Priority Date/Time Associated Diagnosis Comments HLA SOLID ORGAN TYPING REPORT 08/02/2024 9:04 AM [facility] SIX MINUTE WALK Routine 07/29/2024 2:46 PM [facility] End stage renal disease (CMS/HCC) (HCC) CT ABDOMEN PELVIS WO CONTRAST Schedule Routine, Read Routine (OP Routine) 07/29/2024 12:43 PM [facility] End stage renal disease (CMS/HCC) (HCC) XR ORTHOPANTOGRAM/PANOR EX Schedule Routine, Read Routine (OP Routine) 07/29/2024 11:44 AM [facility] End stage renal disease (CMS/HCC) (HCC) TYPE AND SCREEN Routine 07/29/2024 11:23 AM [facility] End stage renal disease (CMS/HCC) (HCC) ECG 12-LEAD Routine 07/29/2024 11:14 AM [facility] End stage renal disease (CMS/HCC) (HCC) ABO/RH Routine 07/29/2024 11:13 AM [facility] EGFR Routine 07/29/2024 11:01 AM [facility] End stage renal disease (CMS/HCC) (HCC) DIFFERENTIAL AUTO Routine 07/29/2024 11: 01 AM [facility] End stage renal disease (CMS/HCC) (HCC) CBC WITH AUTO DIFFERENTIAL Routine 07/29/2024 11:01 AM [facility] End stage renal disease (CMS/HCC) (HCC) COMPREHENSIVE METABOLIC PANEL Routine 07/29/2024 11:01 AM [facility] End stage renal disease (CMS/HCC) (HCC) CREATININE, URINE, RANDOM Routine 07/29/2024 11:01 AM [facility] End stage renal disease (CMS/HCC) (HCC) FERRITIN Routine 07/29/2024 11:01 AM [facility] End stage renal disease (CMS/HCC) (HCC) GAMMA GT Routine 07/29/2024 11:01 AM [facility] End stage renal disease (CMS/HCC) (HCC) HEMOGLOBIN A1C Routine 07/29/2024 11:01 AM [facility] End stage renal disease (CMS/HCC) (HCC) IRON PROFILE W/ IBC Routine 07/29/2024 1 1:01 AM [facility] End stage renal disease (CMS/HCC) (HCC) LIPID PANEL Routine 07/29/2024 11:01 AM [facility] End stage renal disease (CMS/HCC) (HCC) PTH Routine 07/29/2024 11:01 AM [facility] End stage renal disease (CMS/HCC) (HCC) APTT Routine 07/29/2024 11:01 AM [facility] End stage renal disease (CMS/HCC) (HCC) PHOSPHORUS Routine 07/29/2024 11:01 AM [facility] End stage renal disease (CMS/HCC) (HCC) PROTEIN, URINE, RANDOM Routine 07/29/2024 11:01 AM [facility] End stage renal disease (CMS/HCC) (HCC) PROTIME-INR Routine 07/29/2024 11:01 AM [facility] End stage renal disease (CMS/HCC) (HCC) URIC ACID Routine 07/29/2024 11:01 AM [facility] End stage renal disease (CMS/HCC) (HCC) PSA SCREEN Routine 07/29/2024 11:01 AM [facility] End stage renal disease (CMS/HCC) (HCC) LR HLA TYPING (CLASS I AND CLASS II) Routine 07/29/2024 11:01 AM [facility] End stage renal disease (CMS/HCC) (HCC) HLA CLASS I DNA (ABC) RECIPIENT Routine 07/29/2024 11:01 AM [facility] End stage renal disease (CMS/HCC) (HCC) HLA CLASS II DNA (DR, DQ, DP) RECIPIENT Routine 07/29/2024 11:01 AM [facility] End stage renal disease (CMS/HCC) (HCC) HLA ANTIBODY SCREEN - SAB (CLASS I AND CLASS II) Routine 07/29/2024 11:01 AM [facility] End stage renal disease (CMS/HCC) (HCC) HLA ANTIBODY SCREEN BY SINGLE ANTIGEN Routine 07/29/2024 11:01 AM [facility] End stage renal disease (CMS/HCC) (HCC) CMV, IGG Routine 07/29/2024 11:01 AM [facility] End stage renal disease (CMS/HCC) (HCC) MADIHA-MORRIS VIRUS VCA ANTIBODY PANEL Routine 07/29/2024 11:01 AM [facility] End stage renal disease (CMS/HCC) (HCC) HIV 1/2 ANTIBODY PLUS P24 ANTIGEN Routine 07/29/2024 11:01 AM [facility] End stage renal disease (CMS/HCC) (HCC) HSV 1 ANTIBODY, IGG Routine 07/29/2024 1 1:01 AM [facility] End stage renal disease (CMS/HCC) (HCC) HSV 2 ANTIBODY, IGG Routine 07/29/2024 1 1:01 AM [facility] End stage renal disease (CMS/HCC) (HCC) HEPATITIS B CORE ANTIBODY, TOTAL Routine 07/29/2024 11:01 AM [facility] End stage renal disease (CMS/HCC) (HCC) HEPATITIS B SURFACE ANTIBODY (IMMUNE STATUS) Routine 07/29/2024 11:01 AM [facility] End stage renal disease (CMS/HCC) (HCC) HEPATITIS B SURFACE ANTIGEN Routine 07/29/2024 11:01 AM [facility] End stage renal disease (CMS/HCC) (HCC) HEPATITIS C ANTIBODY Routine 07/29/2024 11:01 AM [facility] End stage renal disease (CMS/HCC) (HCC) RPR Routine 07/29/2024 11:01 AM [facility] End stage renal disease (CMS/HCC) (HCC) VARICELLA ZOSTER ANTIBODY, IGG Routine 07/29/2024 11:01 AM [facility] End stage renal disease (CMS/HCC) (HCC) URINALYSIS, MICROSCOPIC ONLY Routine 07/29/2024 10:53 AM [facility] End stage renal disease (CMS/HCC) (HCC) OXALATE Routine 07/29/2024 10:53 AM [facility] ESRD (end stage renal disease) (CMS/HCC) (HCC) URINALYSIS AND REFLEX TO MICROSCOPIC Routine 07/29/2024 10:53 AM [facility] End stage renal disease (CMS/HCC) (HCC) CARDIOLOGY DOCUMENT SCAN Routine 06/07/2024 11:10 AM CDT TSH Routine 10/27/2023 2:30 AM [facility] from Last 3 Months or Most Recently Relevant to Health Maintenance Results * HLA Solid Organ Typing Report (08/02/2024 9:04 AM [facility]) Jossie King MD LAB GENETIC TESTIN G Final Result * Six Minute Walk - (07/29/2024 2:46 PM [facility]) Anatomical Region Laterality Modality PFT Narrative 07/29/2024 3:52 PM [facility] Table formatting from the original result was not included. Davey Pickard V., SECURITY INCIDENT RESPONSE ENGINEER on 07/29/2024 ??2:45 PM Table formatting from the original note was not included. 6 MINUTE WALK RESULTS Name: Juvenal Daigle Jr : 1970 DOS: 07/29/2024 Diagnosis: ESRD/KTE SECURITY INCIDENT RESPONSE ENGINEER performed walk: Carmenza Pickard Rest: 1 min 0 LPM SPO2: 97 % HR: 117 CYRUS: 3 BP: 120/64 ? Walk: 1 min 0 LPM SPO2: 95 % HR: 103 ? Walk: 2 min 0 LPM SPO2: 95 % HR: 101 ? Walk: 3 min 0 LPM SPO2: 95 % HR: 115 CYRUS: 3 ?? Walk: 4 min 0 LPM SPO2: 96 % HR: 117 ? Walk: 5 min 0 LPM SPO2: 91 % HR: 97 ? Walk: 6 min 0 LPM SPO2: 94 % HR: 111 CYRUS: 3 ? Post: 2 min 0 LPM SPO2: 96 % HR: 115 CYRUS: 0 BP: 126/76 Walking SpO2 ranged from: 91-96 Walking HR ranged from: 97-117 Number of feet walked: ??691 Number of rest breaks: ??2(total 50 sec) O2 Recommendation Resting: ?? 0 LPM ?? Midwalk: ??0 LPM ?? Exercise: 0 LPM ? Patient's current exercise program: Patient stated that he walks 10-15 minutes at least 2 times a week. Encouraged patient to exercise 30 minutes 5 times a week. Physician Interpretation: At rest breathing room air oxygen level is adequate, however oxygen level falls with exertion, but remains normoxemic. HR increases with exercise. ?? Prescription: RA at rest and with exercise Jossie King MD RESPIRATORY CARE [facility] Final Result * CT Abdomen Pelvis WO Contrast (07/29/2024 12:43 PM [facility]) Anatomical Region Laterality Modality Body N/A Computed Tomogra phy 07/29/2024 1:04 PM [facility] Impressions 07/29/2024 1:04 PM [facility] 1. ??Moderate discontinuous atherosclerotic calcifications involve the common and external iliac arteries bilaterally. 2. ??Findings of volume overload with small volume ascites, small left pleural effusion and possible trace pulmonary edema. ??Gallbladder wall thickening likely related to systemic factors. ??Abdominal wall stranding and fluid within an umbilical hernia tracking near the peritoneal dialysis course, likely related to volume status; correlate clinically if there is concern for panniculitis. Electronically signed by: Maria Teresa Rivera M.D. Narrative 07/29/2024 1:04 PM [facility] EXAMINATION: ??Computed tomography of the abdomen and pelvis without intravenous contrast HISTORY: End-stage renal disease, pre-transplant evaluation TECHNIQUE: ??Transaxial computed tomographic images of the abdomen and pelvis were obtained without intravenous contrast according to the standard protocol. COMPARISON: CT performed on 06/20/2022 FINDINGS: ?? Images through the lower chest demonstrate bibasilar atelectasis. Subtle groundglass opacities with minimal interlobular septal thickening may represent trace pulmonary edema. ??Small left pleural effusion. ??Borderline cardiomegaly. ??Changes of sternotomy and CABG with sternal wires and plates. ??Aortic valve replacement. ??Coronary artery calcifications. Liver, spleen, adrenal glands, are unremarkable within limits of noncontrast scan. ??No contour deforming renal masses or hydronephrosis. ??Mild diffuse pancreatic atrophy. ??Cholelithiasis. No gallbladder overdistention. ??No biliary dilation. Small volume ascites. ??Peritoneal dialysis catheter. ??Gallbladder wall thickening likely related to systemic factors. Stomach and bowel are unremarkable. ??Bladder is decompressed. No lymphadenopathy. ??Abdominal aorta is of normal caliber. ??There are atherosclerotic calcifications involving the aorta and visceral branches. ??Moderate discontinuous atherosclerotic calcifications involve the common and external iliac arteries bilaterally. Small umbilical hernia containing small volume ascites with adjacent abdominal wall stranding. ??Minimal fluid is also noted along the peritoneal dialysis catheter coarse in the abdominal wall subcutaneous tissues. No suspicious bone lesions. ??Degenerative changes in the lower lumbar spine. Procedure Note Maria Teresa Rivera MD - 07/29/2024 EXAMINATION: Computed tomography of the abdomen and pelvis without intravenous contrast HISTORY: End-stage renal disease, pre-transplant evaluation TECHNIQUE: Transaxial computed tomographic images of the abdomen and pelvis were obtained without intravenous contrast according to the standard protocol. COMPARISON: CT performed on 06/20/2022 FINDINGS: Images through the lower chest demonstrate bibasilar atelectasis. Subtle groundglass opacities with minimal interlobular septal thickening may represent trace pulmonary edema. Small left pleural effusion. Borderline cardiomegaly. Changes of sternotomy and CABG with sternal wires and plates. Aortic valve replacement. Coronary artery calcifications. Liver, spleen, adrenal glands, are unremarkable within limits of noncontrast scan. No contour deforming renal masses or hydronephrosis. Mild diffuse pancreatic atrophy. Cholelithiasis. No gallbladder overdistention. No biliary dilation. Small volume ascites. Peritoneal dialysis catheter. Gallbladder wall thickening likely related to systemic factors. Stomach and bowel are unremarkable. Bladder is decompressed. No lymphadenopathy. Abdominal aorta is of normal caliber. There are atherosclerotic calcifications involving the aorta and visceral branches. Moderate discontinuous atherosclerotic calcifications involve the common and external iliac arteries bilaterally. Small umbilical hernia containing small volume ascites with adjacent abdominal wall stranding. Minimal fluid is also noted along the peritoneal dialysis catheter coarse in the abdominal wall subcutaneous tissues. No suspicious bone lesions. Degenerative changes in the lower lumbar spine. IMPRESSION: 1. Moderate discontinuous atherosclerotic calcifications involve the common and external iliac arteries bilaterally. 2. Findings of volume overload with small volume ascites, small left pleural effusion and possible trace pulmonary edema. Gallbladder wall thickening likely related to systemic factors. Abdominal wall stranding and fluid within an umbilical hernia tracking near the peritoneal dialysis course, likely related to volume status; correlate clinically if there is concern for panniculitis. Electronically signed by: Maria Teresa Rivera M.D. 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 Electronically signed by: Julio Pinedo M.D. Narrative 07/29/2024 12:59 PM [facility] EXAMINATION: XR ORTHOPANTOGRAM/PANOREX HISTORY: Kidney Transplant Evaluation COMPARISON: None available FINDINGS: ?? Comparison: Multiple dental extractions and restorations. ??There is an apparent dental caries involving the left maxillary 1st premolar, and caries versus extraction of the left maxillary canine. ??No large mandibular periapical abscess. Procedure Note Julio Pinedo MD - 07/29/2024 EXAMINATION: XR ORTHOPANTOGRAM/PANOREX HISTORY: Kidney Transplant Evaluation COMPARISON: None available FINDINGS: Comparison: Multiple dental extractions and restorations. There is an apparent dental caries involving the left maxillary 1st premolar, and caries versus extraction of the left maxillary canine. No large mandibular periapical abscess. 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 Electronically signed by: Julio Pinedo M.D. Jossie King MD IMG XR PROCEDURES Final Result * Type and screen (07/29/2024 11:23 AM [facility]) Pathologist [facility] Maribel, indirect Negative ABO Rh A Positive [facility] Blood 07/29/2024 11:2 3 AM [facility] 07/29/2024 11:43 AM [facility] Narrative [facility] - 07/29/2024 12:45 PM [facility] Please draw the ABO and the Type and Screen as two separate blood draws with each stamped with the two different times stamps as this is a regulatory requirement for this patient to be listed for Kidney Transplant. ??This lab is being obtained as part of a Kidney transplant evaluation, is time sensitive, and should only be drawn during the evaluation visit at [facility]. Has the patient had Daratumumab or Isatuximab in the past 6 months?->Unknown Jossie King MD LAB BLOOD BANK ERNESTO T ORDERABLES Final Result [facility] Department [place] [address] * ECG 12 lead (07/29/2024 11:14 AM [facility]) Ventricular Rate EKG/Min 117 BPM [facility] Atrial Rate 117 BPM [facility] DC-Interval (MSEC) 144 ms [facility] QRS-Interval (MSEC) 126 ms [facility] QT-Interval (MSEC) 366 ms [facility] QTc 510 ms [facility] R Mcwilliams -40 degrees [facility] T Mcwilliams 147 degrees [facility] Diagnosis Poor data quality, interpretation may be adversely affected Sinus tachycardia with Fusion complexes Left axis deviation Poor R-wave progression in the precordial leads Non-specific intra-ventricular conduction block T wave abnormality, consider lateral ischemia Abnormal ECG When compared with ECG of 23-JUN-2022 13:30, Fusion complexes are now Present Premature supraventricular complexes are no longer Present QRS duration has increased ST depression has replaced ST elevation in Inferior leads Confirmed by FERDINAND SAL M.D ([id number]) on 07/29/2024 3:38:41 PM [facility] 07/29/2024 11:1 4 AM [facility] 07/29/2024 3:38 PM [facility] Jossie King MD ECG ORDERABLES Fi nal Result Performing Organization Address City/[facility] Co de Phone Number [facility] * ABO/Rh (07/29/2024 11:13 AM [facility]) ABO Rh A Positive Blood 07/29/2024 11:1 3 AM [facility] 07/29/2024 2:45 PM [facility] Jossie King MD LAB BLOOD BANK ERNESTO T ORDERABLES Final Result Performing Organization Address City/[facility] Co de Phone Number [facility] Department [place] [address] * LR HLA Typing (Class I and Class II) (07/29/2024 11:01 AM [facility]) r-SSO HISTOTRAC A First Allele A*03 HISTOTRAC A Second Allele A*29 HISTOTRAC A First Serological Equivalent A3 HISTOTRAC A Second Serological Equivalent A29 HISTOTRAC B First Allele B*07 HISTOTRAC B Second Allele B*44 HISTOTRAC B First Serological Equivalent B7 HISTOTRAC B Second Serological Equivalent B44 HISTOTRAC Bw First Serological Equivalent Bw6 HISTOTRAC Bw Second Serological Equivalent Bw4 HISTOTRAC C First Allele C*07 HISTOTRAC C Second Allele C*07 HISTOTRAC C First Serological Equivalent Cw7 HISTOTRAC C Second Serological Equivalent Cw7 HISTOTRAC DRB1 First Allele DRB1*04 HISTOTRAC DRB1 Second Allele DRB1*11 HISTOTRAC DRB1 First Serological Equivalent DR4 HISTOTRAC DRB1 Second Serological Equivalent DR11 HISTOTRAC DRB3 First Allele DRB3*02 HISTOTRAC DRB3 First Serological Equivalent DR52 HISTOTRAC DRB4 Second Allele DRB4*01 HISTOTRAC DRB4 Second Serological Equivalent DR53 HISTOTRAC DQA1 First Allele DQA1*03 HISTOTRAC DQA1 Second Allele DQA1*05 HISTOTRAC DQB1 First [place]lele DQB1*03 HISTOTRAC DQB1 Second Allele DQB1*03 HISTOTRAC DQB1 First Serological Equivalent DQ7 HISTOTRAC DQB1 Second Serological Equivalent DQ8 HISTOTRAC DPB1 First Allele DPB1*13:01: 01G HISTOTRAC DPB1 Second Allele DBP1*15:01: 01G HISTOTRAC Reportable Comments Unable to resolve rare DQB1*03, 06. 07/30/24 HISTOTRAC Blood 07/29/2024 11:0 1 AM [facility] 08/02/2024 9:03 AM [facility] Narrative HISTOTRAC - 08/02/2024 9:[address] [facility] DNA was extracted from whole blood or buccal cell specimens, and relevant genomic regions were amplified by polymerase chain reactions (PCR). HLA typing was performed on PCR amplicons using reverse sequence-specific oligonucleotide (r-SSO) and/or sequence-specific primers (SSP) based techniques. r-SSO and SSP are FDA approved as IVD tests and validated by the [facility]. Testing performed at the [facility], [address] [place] [address], 5th floor, [place], [address]. [facility] # [id number]. Dorothy Meade, Ph.D., Lining Stamper, HLA Laboratory Rell Samuels M.D., Ph.D., Advertising Analyst, HLA Laboratory Licha Nieto, Ph.D., CLIA Advertising Analyst, [facility] Current methodology comment last revised on 04/25/17. Jossie King MD LAB BLOOD ORDERABL ES Final Result HISTOTRAC * Collection Task for HLA Typing 1 (07/29/2024 11:01 AM [facility]) HLA Class I DNA (ABC) Recipient Received Blood 07/29/2024 11:0 1 AM [facility] 07/29/2024 11:56 AM [facility] Jossie King MD LAB BLOOD ORDERABL ES Final Result Performing Organization Address [facility] Co de Phone Number [facility] [place] [address] * Collection Task for HLA Antibody Screen (07/29/2024 11:01 AM [facility]) HLA Antibody Screen By Single Antigen Received Blood 07/29/2024 11:0 1 AM [facility] 07/29/2024 11:56 AM [facility] Jossie King MD LAB BLOOD ORDERABL ES Final Result Performing Organization Address [facility] de Phone Number [facility] Department [place] [address] * Collection Task for HLA Typing 2, Patient (07/29/2024 11:01 AM [facility]) HLA Class II DNA (DR, DQ, DP) Recipient Received Blood 07/29/2024 11:0 1 AM [facility] 07/29/2024 11:56 AM [facility] Jossie King MD LAB BLOOD ORDERABL ES Final Result Performing Organization Address City/[facility] Co de Phone Number [facility] Department [place] [address] * (ABNORMAL) eGFR (07/29/2024 11:01 AM [facility]) eGFR 7(L) >=60 mL/min/1. 73 m2 Comment: Interpretive Data Reference Interval Normal ?>/= 90 mL/min/1.73m2 Mildly decreased* ? 60 - 89 mL/min/1.73m2 Mildly to moderately decreased ?45 - 59 mL/min/1.73m2 Moderately to severely decreased ??30 - 44 mL/min/1.73m2 Severely decreased ?15 - 29 mL/min/1.73m2 Kidney Failure ?< 15 ??mL/min/1.73m2 *Relative to young adult level Estimated glomerular filtration rate is determined by the 2020 CKD-EPI equation recommended by the National Kidney Foundation (A Unifying Approach to GFR Estimation: Recommendations of the NKF-ASK Task Force on Reassessing the Inclusion of Race in Diagnosing Kidney Disease, JASN 2020). The CKD-EPI equation should not be used for patients with unstable renal function and has not been validated in children and those over 70. Current interpretive data was last reviewed 2021. Blood 07/29/2024 11:0 1 AM [facility] 07/29/2024 11:33 AM [facility] us Jossie King MD LAB BLOOD ORDERABL ES Final Result [facility] Department of Laboratories [place], [place] [id number] * Differential, auto (07/29/2024 11:01 AM [facility]) Neutrophil abs 3.1 1.5 - 6.5 K/cumm Imm gran abs 0.0 0.0 - 0.1 K/cumm [facility] Lymphocyte abs 1.1 0.8 - 3.3 K/cumm [facility] Monocyte abs 0.7 0.2 - 0.8 K/cumm [facility] Eosinophil abs 0.2 0.0 - 0.5 K/cumm [facility] Basophil abs 0.0 0.0 - 0.1 K/cumm [facility] Neutrophil pct 60.3 % [facility] Comment: Interpretive Data Percent cell count reference ranges are not reported, since discordance with absolute values may lead to misinterpretation of CBC data. Current Interpretive Data was last revised on 2017. Imm gran pct 0.6 % [facility] Comment: Interpretive Data Percent cell count reference ranges are not reported, since discordance with absolute values may lead to misinterpretation of CBC data. Current Interpretive Data was last revised on 2017. Lymphocyte pct 21.4 % [facility] Comment: Interpretive Data Percent cell count reference ranges are not reported, since discordance with absolute values may lead to misinterpretation of CBC data. Current Interpretive Data was last revised on 2017. Monocyte pct 13.7 % [facility] Comment: Interpretive Data Percent cell count reference ranges are not reported, since discordance with absolute values may lead to misinterpretation of CBC data. Current Interpretive Data was last revised on 2017. Eosinophil pct 3.2 % [facility] Comment: Interpretive Data Percent cell count reference ranges are not reported, since discordance with absolute values may lead to misinterpretation of CBC data. Current Interpretive Data was last revised on 2017. Basophil pct 0.8 % [facility] Comment: Interpretive Data Percent cell count reference ranges are not reported, since discordance with absolute values may lead to misinterpretation of CBC data. Current Interpretive Data was last revised on 2017. Blood 07/29/2024 11:0 1 AM [facility] 07/29/2024 11:34 AM [facility] us Jossie King MD LAB BLOOD ORDERABL ES Final Result [facility] Department [place] [address] * PSA screen (07/29/2024 11:01 AM [facility]) PSA-Total 0.55 <=3.90 ng/mL Comment: Interpretive Data ?AGE ? SEX ?REFERENCE INTERVAL 0 minutes-150 years ?Female ?None 0 minutes-49 years ? Male ?None ? 50-59 years ? Male ?0-3.90 ? 60-69 years ? Male ?0-5.40 ? 70-79 years ? Male ?0-6.20 ? 80-150 years ?Male ?0-6.20 The Monica PSA Total assay procedure was used. Results from different manufacturers or methods may not be comparable. Serial testing should be performed using the same method. Current interpretive data last revised 21. Blood 07/29/2024 11:0 1 AM [facility] 07/29/2024 11:33 AM [facility] Narrative [facility] - 07/29/2024 12:39 PM [facility] This lab is being obtained as part of a Kidney transplant evaluation, is time sensitive, and should only be drawn during the evaluation visit at [facility] Lab. us Jossie King MD LAB BLOOD ORDERABL ES Final Result [facility] Department [place] [address] * (ABNORMAL) Iron profile w/ IBC (07/29/2024 11:01 AM [facility]) Pathologist [facility] Iron 62 50 - 150 mcg/dL TIBC 208(L) 250 - 400 mcg/dL [facility] Transferrin saturation 30 20 - 50 % [facility] Blood 07/29/2024 11:0 1 AM [facility] 07/29/2024 11:33 AM [facility] Narrative [facility] - 07/29/2024 12:10 PM [facility] This lab is being obtained as part of a Kidney transplant evaluation, is time sensitive, and should only be drawn during the evaluation visit at [address] Jossie King MD LAB BLOOD ORDERABL ES Final Result Performing Organization Address [facility] de Phone Number [facility] [place] [address] * HIV 1/2 Antibody plus p24 Antigen Blood (07/29/2024 11:01 AM [facility]) [facility] HIV 1/2 ab + p24 ag Nonreactive Nonreactive Comment:Nonreactive for HIV- 1 antigen and HIV-1/HIV-2 antibodies. No laboratory evidence of HIV infection. If acute HIV infection is suspected, consider testing for HIV-1 RNA. Current interpretive data was last revised on 22. Blood 07/29/2024 11:0 1 AM [facility] 07/29/2024 11:32 AM [facility] Narrative [facility] - 07/29/2024 12:13 PM [facility] This lab is being obtained as part of a Kidney transplant evaluation, is time sensitive, and should only be drawn during the evaluation visit at [address] Jossie King MD LAB MICROBIOLOGY - GENERAL ORDERABLES Final Result Performing Organization Address [facility] de Phone Number [facility] [place] [address] * (ABNORMAL) CMV, IgG Blood (07/29/2024 11:01 AM [facility]) [facility] CMV IgG Positive( A) Negative Comment: Interpretive Data Negative - Individuals with negative CMV IgG results are presumed to not have had prior exposure or infection with CMV and are, therefore, considered susceptible to primary infection. Equivocal - Equivocal results may occur during acute infection or may be due to nonspecific binding reactions. Submit an additional sample for testing if clinically indicated. Positive - Indicates presence of detectable CMV IgG antibody. Results indicate past or recent CMV infection. Blood 07/29/2024 11:0 1 AM [facility] 07/29/2024 11:33 AM [facility] Luis [facility] - 07/29/2024 1:44 PM [facility] This lab is being obtained as part of a Kidney transplant evaluation, is time sensitive, and should only be drawn during the evaluation visit at [facility] Lab. us Jossie King MD LAB MICROBIOLOGY - GENERAL ORDERABLES Final Result [facility] Billie [facility] Department [place] [address] * HLA Antibody Screen - SAB (Class I and Class II) (07/29/2024 11:01 AM [facility]) Class I Treatment EDTA H[facility] Class I Dilution 1:1 HISTOTRAC Class I Tested Date 07/30/2024 HISTOTRAC Class I Result Negative HISTOTRAC Class I CPRA 0 HISTOTRAC Class I Low Risk A24, A30 HISTOTRAC Class II Treatment EDTA HISTOTRAC Class II Dilution 1:1 HISTOTRAC Class II Tested Date 07/30/2024 HISTOTRAC Class II Result Positive HISTOTRAC Class II CPRA 48 HISTOTRAC Class II Increased Risk DR1, DR103, DR10, DR51 HISTOTRAC Class II Moderate Risk DR9 HISTOTRAC Class II Low Risk DR12, DR51, DR52 HISTOTRAC Blood 07/29/2024 11:0 1 AM [facility] 08/02/2024 9:46 AM [facility] Narrative HIST[facility] - 08/02/2024 9:46 AM [facility] Single-antigen HLA antibody screen is performed on serum samples using a method developed and validated by the [facility] laboratory based on an FDA-approved IVD kit (LABScreen Single-Antigen, [email or web address], [place], [place]). All patient serum samples are pretreated with EDTA before the screen to prevent complement interference. Additional serum treatments, such as adsorption and DTT treatment, may be performed as indicated. ??Interpretive comments: Low risk: MFI 2281-5151. Moderate risk: MFI 8151-1937. Increased risk: MFI >/= 5000. The presence of an antigen in two or more risk categories may indicate a mixed reactivity pattern among beads of multiple subtypes. Preformed donor-specific antibodies (DSA) with MFI above 2000 are predictive of positive cytotoxicity crossmatch (Hum Immunol 2010;71:268-73. Hum Immunol 2012;73:497- 604) and carry a higher risk of humoral rejection. For our solid-organ transplant programs, unacceptable antigens (UA) for transplant candidates are defined by MFI >/= 2000 with some exceptions. UA are listed at [facility] and used to generate calculated PRA (cPRA) rounded to the nearest integer. In the post-transplant setting, MFI values from donor-specific beads are listed in the DSA report to provide additional information. It is important to note that this test is approved as a qualitative test and the MFI values are not strictly linear. For platelet refractoriness: An empirical cutoff value of MFI >/= 2000 has been used in our center; a higher cutoff value such as 5000 may also be suitable for highly sensitized patients to prioritize the antigens to avoid. Testing performed at the [facility], [address] [place] [address], 5th floor, [place], [address]. [place] # [id number]. Dorothy Meade, Ph.D., Lining Stamper, HLA Laboratory Rell Samuels M.D., Ph.D., Advertising Analyst, HLA Laboratory Licha Nieto, Ph.D., CLIA Advertising Analyst, [facility] Current methodology and interpretive comments last revised on 09/15/2022. us Jossie King MD LAB BLOOD ORDERABL ES Final Result HISTOTRAC * (ABNORMAL) CBC with auto differential (07/29/2024 11:01 AM [facility]) WBC 5.1 3.8 - 9.9 K/cumm Hgb 11.5(L) 13.0 - 17.5 g/dL [facility] Hct 34.4(L) 38.9 - 50.3 % [facility] Plt 208 150 - 400 K/cumm [facility] MPV 10.8 9.1 - 12.3 fL [facility] RBC 3.76(L) 4.30 - 5.80 M/cumm [facility] MCV 91.5 81.3 - 96.4 fL [facility] MCH 30.6 27.1 - 33.3 pg [facility] MCHC 33.4 32.3 - 35.7 g/dL [facility] RDW CV 14.3 11.1 - 14.9 % [facility] RDW SD 47.9 35.7 - 48.1 fL [facility] NRBC abs 0.00 0.00 - 0.01 K/cumm [facility] Blood 07/29/2024 11:0 1 AM [facility] 07/29/2024 11:34 AM [facility] Narrative [facility] - 07/29/2024 11:45 AM [facility] This lab is being obtained as part of a Kidney transplant evaluation, is time sensitive, and should only be drawn during the evaluation visit at [address] Lab[address] Jossie King MD LAB BLOOD ORDERABL ES Final Result [facility] Department [place] [address] * Hepatitis C antibody Blood (07/29/2024 11:01 AM [facility]) Hep C Ab Nonreactive Nonreactive Comment:Antibodies to HCV no t detected. Does NOT exclude the possibility of recent exposure to HCV. Current interpretive data was last revised on 22 Blood 07/29/2024 11:0 1 AM [facility] 07/29/2024 11:32 AM [facility] Narrative [facility] - 07/29/2024 12:47 PM [facility] This lab is being obtained as part of a Kidney transplant evaluation, is time sensitive, and should only be drawn during the evaluation visit at [address] Lab. Jossie King MD LAB MICROBIOLOGY - GENERAL ORDERABLES Final Result Performing Organization Address [facility] Co de Phone Number [facility] [place] [address] * (ABNORMAL) Madiha-Morris virus (EBV) antibody panel Blood (07/29/2024 11:01 AM [facility]) Pathologist [facility] EBV nuclear Ab Positive(A) Negative Comment:Indicates the presen ce of detectable IgG antibody to EBV Nuclear Antigen. EBV VCA IgG Positive(A) Negative [facility] Comment:Indicates the presen ce of antibody; 90% of the adult population will have been infected with EBV sometime in the past. EBV VCA IgM Negative Negative [facility] Comment:No detectable IgM an tibody to EBV-VCA. A negative result indicates no current infection with EBV. If clinical suspicion of acute EBV infection is present, testing should be repeated after one week. EBV interp Past Infection [facility] Blood 07/29/2024 11:0 1 AM [facility] 07/29/2024 11:33 AM [facility] Narrative [facility] - 07/29/2024 1:43 PM [facility] This lab is being obtained as part of a Kidney transplant evaluation, is time sensitive, and should only be drawn during the evaluation visit at [address] Lab. Jossie King MD LAB MICROBIOLOGY - GENERAL ORDERABLES Final Result Performing Organization Address [facility] Co de Phone Number [facility] Department [place] [address] * Hepatitis B core antibody, total Blood (07/29/2024 11:01 AM [facility]) Pathologist [facility] Hep B core IgG/IgM Nonreactive Nonreactive Blood 07/29/2024 11:0 1 AM [facility] 07/29/2024 11:32 AM [facility] Narrative [facility] - 07/29/2024 12:47 PM [facility] This lab is being obtained as part of a Kidney transplant evaluation, is time sensitive, and should only be drawn during the evaluation visit at [address] Jossie King MD LAB MICROBIOLOGY - GENERAL ORDERABLES Final Result Performing Organization Address City/[facility] Co de Phone Number [facility] [place] [address] * Protein, urine, random (07/29/2024 11:01 AM [facility]) Protein, ur, quant 121.2 mg/dL Comment: Interpretive Data No reference range established. Current interpretive data was last revised 2019. Urine 07/29/2024 11:0 1 AM [facility] 07/29/2024 11:32 AM [facility] Narrative [facility] - 07/29/2024 12:18 PM [facility] This lab is being obtained as part of a Kidney transplant evaluation, is time sensitive, and should only be drawn during the evaluation visit at [address] Jossie King MD LAB URINE ORDERABL ES Final Result Performing Organization Address [facility] de Phone Number [facility] [place] [address] * Creatinine, urine, random (07/29/2024 11:01 AM [facility]) Creatinine Ur 167.1 mg/dL Comment: Interpretive Data No reference range established. Current interpretive data was last revised 2019. Urine 07/29/2024 11:0 1 AM [facility] 07/29/2024 11:32 AM [facility] Narrative [facility] - 07/29/2024 12:18 PM [facility] This lab is being obtained as part of a Kidney transplant evaluation, is time sensitive, and should only be drawn during the evaluation visit at [address] Jossie King MD LAB URINE ORDERABL ES Final Result Performing Organization Address [facility] de Phone Number [facility] Department [place] [address] * HSV 2 IgG Antibody Blood (07/29/2024 11:01 AM [facility]) HSV 2 IgG Nonreactive Nonreactive Comment: Interpretive Data 1. Nonreactive: No detectable IgG antibody to HSV-2. 2. Equivocal: Presence or absence of detectable antibodies to HSV-2 cannot be determined and the test should be repeated. 3. Reactive: Indicates presence of detectable IgG antibody to HSV-2. Current interpretive data was last revised on 2022. Blood 07/29/2024 11:0 1 AM [facility] 07/29/2024 11:33 AM [facility] Narrative [facility] - 07/29/2024 1:44 PM [facility] This lab is being obtained as part of a Kidney transplant evaluation, is time sensitive, and should only be drawn during the evaluation visit at [address] Lab. Jossie King MD LAB MICROBIOLOGY - GENERAL ORDERABLES Final Result [facility] Department [place] [address] * (ABNORMAL) HSV 1 IgG Antibody Blood (07/29/2024 11:01 AM [facility]) Pathologist [facility] HSV 1 IgG Reactive( A) Nonreactive Comment: Interpretive Data 1. Nonreactive: No detectable IgG antibody to HSV-1. 2. Equivocal: Presence or absence of detectable antibodies to HSV-1 cannot be determined and the test should be repeated. 3. Reactive: Indicates presence of detectable IgG antibody to HSV-1. Current interpretive data was last revised on 2016. Blood 07/29/2024 11:0 1 AM [facility] 07/29/2024 11:33 AM [facility] Narrative [facility] - 07/29/2024 1:44 PM [facility] This lab is being obtained as part of a Kidney transplant evaluation, is time sensitive, and should only be drawn during the evaluation visit at [address] Lab[address] Jossie King MD LAB MICROBIOLOGY - GENERAL [place] [address] * RPR Blood (07/29/2024 11:01 AM [facility]) Pathologist [facility] RPR Nonreactive Nonreactive Blood 07/29/2024 11:0 1 AM [facility] 07/29/2024 11:33 AM [facility] Narrative [facility] - 07/29/2024 12:34 PM [facility] This lab is being obtained as part of a Kidney transplant evaluation, is time sensitive, and should only be drawn during the evaluation visit at [address] Lab[address] us Jossie King MD LAB MICROBIOLOGY - GENERAL ORDERABLES Final Result Performing Organization Address [facility] [place] [address] * Hepatitis B surface antibody (immune status) Blood (07/29/2024 11:01 AM [facility]) Pathologist [facility] HBsAb (immune status) Reactive Comment:This result is consi stent with immunity to Hepatitis B Virus when used in the setting of routine screening. Current interpretive data was last revised on 22 Blood 07/29/2024 11:0 1 AM [facility] 07/29/2024 11:32 AM [facility] Narrative [facility] - 07/29/2024 12:47 PM [facility] This lab is being obtained as part of a Kidney transplant evaluation, is time sensitive, and should only be drawn during the evaluation visit at [address] Lab[address] us Jossie King MD LAB MICROBIOLOGY - GENERAL [place] [address] * Hepatitis B Surface Antigen Blood (07/29/2024 11:01 AM [facility]) HepBsAg Nonreactive Nonreactive Blood 07/29/2024 11:0 1 AM [facility] 07/29/2024 11:32 AM [facility] Narrative [facility] - 07/29/2024 12:47 PM [facility] This lab is being obtained as part of a Kidney transplant evaluation, is time sensitive, and should only be drawn during the evaluation visit at [address] Lab[address] Jossie King MD LAB MICROBIOLOGY - GENERAL ORDERABLES Final Result Performing Organization Address [facility] Co de Phone Number [facility] [place] [address] * (ABNORMAL) aPTT (07/29/2024 11:01 AM [facility]) [facility] aPTT 61(H) 28 - 38 sec Comment: Interpretive Data Heparin therapeutic range: 66.0 - 100.0 seconds. Range based on correlation with therapeutic heparin activity range of 0.3 - 0.7 Units/mL. Current interpretive data was last revised on 2023. Blood 07/29/2024 11:0 1 AM [facility] 07/29/2024 11:32 AM [facility] Narrative [facility] - 07/29/2024 11:42 AM [facility] This lab is being obtained as part of a Kidney transplant evaluation, is time sensitive, and should only be drawn during the evaluation visit at [address] Jossie King MD LAB BLOOD ORDERABL ES Final Result Performing Organization Address [facility] Hospital/[facility] Co de Phone Number [facility] Department [place] [address] * (ABNORMAL) Protime-INR (07/29/2024 11:01 AM RUG [facility]OOKER [facility]) [facility] PT 50.6(H) 9.7 - 13.0 sec INR 4.54(H) 0.90 - 1.20 [facility] Comment: Interpretive data Oral anticoagulant therapeutic ranges: Venous thromboembolism prophylaxis or treatment: 2.0-3.0 CARDIOLOGY Standard range: 2.0-3.0 High-intensity range: 2.5-3.5 Refer to indication-specific guidelines for appropriate target ranges for prosthetic heart valve replacement. Current interpretive data was last revised on 2019. Blood 07/29/2024 11:0 1 AM [facility] 07/29/2024 11:32 AM [facility] Narrative [facility] 07/29/2024 11:42 AM [facility] This lab is being obtained as part of a Kidney transplant evaluation, is time sensitive, and should only be drawn during the evaluation visit at [address] Jossie King MD LAB BLOOD ORDERABL ES Final Result Performing Organization Address [facility] Co de Phone Number [facility] Department [place] [address] * Varicella Zoster IgG antibody Blood (07/29/2024 11:01 AM RUG [facility]ER HAND) Pathologist [facility] VZV IgG Reactive Reactive Comment:Reactive: Results diego ggest response to immunization or prior exposure to the virus. Blood 07/29/2024 11:0 1 AM [facility] 07/29/2024 11:33 AM [facility] Narrative [facility] 07/29/2024 1:45 PM [facility] This lab is being obtained as part of a Kidney transplant evaluation, is time sensitive, and should only be drawn during the evaluation visit at [address] Jossie King MD LAB MICROBIOLOGY - GENERAL ORDERABLES Final Result Performing Organization Address City/[facility]/ZIP Co de Phone Number [facility] Department [place] [address] * (ABNORMAL) Uric acid (07/29/2024 11:01 AM R[facility]) Pathologist [facility] Uric acid 2.0(L) 3.0 - 8.0 mg/dL Blood 07/29/2024 11:0 1 AM [facility] 07/29/2024 11:33 AM [facility] Narrative [facility] - 07/29/2024 12:10 PM [facility] This lab is being obtained as part of a Kidney transplant evaluation, is time sensitive, and should only be drawn during the evaluation visit at [address] Lab[address] Jossie King MD LAB BLOOD ORDERABL ES Final Result Performing Organization Address [facility] de Phone Number [facility] [place] [address] * (ABNORMAL) Phosphorus (07/29/2024 11:01 AM [facility]) Phosphorus, pl 5.1(H) 2.3 - 4.5 mg/dL Blood 07/29/2024 11:0 1 AM [facility] 07/29/2024 11:33 AM [facility] Narrative [facility] 07/29/2024 12:10 PM [facility] This lab is being obtained as part of a Kidney transplant evaluation, is time sensitive, and should only be drawn during the evaluation visit at [address] Jossie King MD LAB BLOOD ORDERABL ES Final Result Performing Organization Address [facility] de Phone Number [facility] [place] [address] * (ABNORMAL) PTH (07/29/2024 11:01 AM [facility]) PTH 444(H) 15 - 65 pg/mL Blood 07/29/2024 11:0 1 AM [facility] 07/29/2024 11:34 AM [facility] Narrative [facility] - 07/29/2024 12:02 PM [facility] This lab is being obtained as part of a Kidney transplant evaluation, is time sensitive, and should only be drawn during the evaluation visit at [address] Lab[address] Jossie King MD LAB BLOOD ORDERABL ES Final Result Performing Organization Address [facility] de Phone Number [facility] [place] [address] * (ABNORMAL) Hemoglobin A1c (07/29/2024 11:01 AM R[facility]) [facility] Hgb A1C 9.0(H) 4.0 - 5.6 % Estimated Average Glucose 212 mg/dL [facility] Comment: The ADA recommends reporting an estimated Average Glucose (eAG) with all Hemoglobin A1c results using the equation derived from a study of 507 normal and diabetic adults. ??Minority populations were underrepresented and children were not included. ?? (Diabetes Care 2020; 43(S1): S66-S76). ??The eAG is not equivalent to a fasting glucose. Blood 07/29/2024 11:0 1 AM [facility] 07/29/2024 11:34 AM [facility] Narrative [facility] - 07/29/2024 11:53 AM [facility] This lab is being obtained as part of a Kidney transplant evaluation, is time sensitive, and should only be drawn during the evaluation visit at [address] Jossie King MD LAB BLOOD [place] [address] * Gamma GT (07/29/2024 11:01 AM RUG [facility]) [facility] GGT 22 10 - 50 Units/L Blood 07/29/2024 11:0 1 AM [facility] 07/29/2024 11:33 AM [facility] Narrative [facility] - 07/29/2024 12:40 PM [facility] This lab is being obtained as part of a Kidney transplant evaluation, is time sensitive, and should only be drawn during the evaluation visit at [address] Jossie King MD LAB BLOOD [place] [address] * (ABNORMAL) Ferritin (07/29/2024 11:01 AM [facility]) Ferritin 761(H) 30 - 400 ng/mL Blood 07/29/2024 11:0 1 AM [facility] 07/29/2024 11:33 AM [facility] Narrative [facility] - 07/29/2024 12:10 PM [facility] This lab is being obtained as part of a Kidney transplant evaluation, is time sensitive, and should only be drawn during the evaluation visit at [facility] Lab. us Jossie King MD LAB BLOOD ORDERABL ES Final Result [facility] Department [place] [address] * (ABNORMAL) Lipid panel (07/29/2024 11:01 AM RUG [facility]ER HAND) Pathologist [facility] Cholesterol 114 30 - 199 mg/dL Comment: Interpretive Data Ages < or = 19 years ??Acceptable: ? <170 mg/dL ??Borderline high: ??170-199 mg/dL ??High: ? >or= 200 mg/dL Ages > or = 20 years ??Desirable: ?<200 mg/dL ??Borderline high: ??200-239 mg/dL ??High: ? >or= 240 mg/dL Literature References: 1. Expert Panel on Integrated Guidelines for Cardiovascular Health and Risk Reduction in Children and Adolescents. Pediatrics 2011;128:S213 2. NCEP Expert Panel. Circulation 2004;110:227 Current Interpretive Data was last revised on 2018. Triglycerides 66 <=149 mg/dL [facility] Comment: Interpretive Data Ages < or = 9 years ??Acceptable: ? <75 mg/dL ??Borderline high: ??75-99 mg/dL ??High: ? >or= 100 mg/dL Ages 10 to 20 years ??Acceptable: ? <90 mg/dL ??Borderline high: ??90-129 mg/dL ??High: ? >or= 130 mg/dL Ages > or = 20 years ??Desirable: ?<150 mg/dL ??Borderline high: ??150-199 mg/dL ??High: ? 200-499 mg/dL ?Very high: ?? >or= 499 mg/dL Literature References: 1. Expert Panel on Integrated Guidelines for Cardiovascular Health and Risk Reduction in Children and Adolescents. Pediatrics 2011;128:S213 2. NCEP Expert Panel. Circulation 2004;110:227 Current Interpretive Data was last revised on 2018. HDL 29(L) >=40 mg/dL [facility] Comment: Interpretive Data Ages < or = 19 years ??Acceptable: ? >45 mg/dL ??Borderline low: ?? 40-45 mg/dL ??Low: ? <40 mg/dL Ages > or = 20 years ??Desirable: ?>or= 60 mg/dL ??Low: ? <40 mg/dL Literature References: 1. Expert Panel on Integrated Guidelines for Cardiovascular Health and Risk Reduction in Children and Adolescents. Pediatrics 2011;128:S213 2. NCEP Expert Panel. Circulation 2004;110:227 Current Interpretive Data was last revised on 2018. LDL, calculated 71 <=129 mg/dL [facility] Comment: Interpretive Data Ages < or = 19 years ??Acceptable: ? <110 mg/dL ??Borderline high: ??110-129 mg/dL ??High: ?>or= 130 mg/dL Ages > or = 20 years ??Optimal: ? <100 mg/dL ??Near optimal: ?100-129 mg/dL ??Borderline high: ?? 130-159 mg/dL ??High: ?>160 mg/dL Calculated using the Garcia LDL-C estimating equation. This equation was implemented on 2024. Prior to this date LDL-C was estimated using the Friedewald equation. Literature References: 1. Expert Panel on Integrated Guidelines for Cardiovascular Health and Risk Reduction in Children and Adolescents. Pediatrics 2011;128:S213 2. NCEP Expert Panel. Circulation 2004;110:227 3. Jose Gonzalez et al. TYRONE Cardiol. 2019December 19;5(5):540-548. doi: 10.1001/jamacardio.2020.0013 Current Interpretive Data was last revised on 2024. Non-HDL Cholesterol 85 mg/dL [facility] Comment: Interpretive Data Ages < or = 19 years ??Acceptable: ?<120 mg/dL ??Borderline high: ??120-144 mg/dL ??High: ?>145 mg/dL Ages > or = 20 years ??When triglycerides are >200 mg/dL, Non-HDL cholesterol is a secondary target of ? therapy with treatment goals that are 30 mg/dL greater than the LDL cholesterol target. ? Literature References: 1. Expert Panel on Integrated Guidelines for Cardiovascular Health and Risk Reduction in Children and Adolescents. Pediatrics 2011;128:S213 2. NCEP Expert Panel. Circulation 2004;110:227 Current Interpretive Data was last revised on 2018. Chol/HDL ratio 4 [facility] Blood 07/29/2024 11:0 1 AM [facility] 07/29/2024 11:33 AM [facility] Narrative [facility] - 07/29/2024 12:10 PM [facility] This lab is being obtained as part of a Kidney transplant evaluation, is time sensitive, and should only be drawn during the evaluation visit at [facility] Lab. us Jossie King MD LAB BLOOD ORDERABL ES Final Result [facility] Department [place] [address] * (ABNORMAL) Comprehensive metabolic panel (07/29/2024 11:01 AM R[facility]) Sodium 136 135 - 145 mmol/L Potassium, pl 4.6 3.3 - 4.9 mmol/L [facility] Chloride 93(L) 97 - 110 mmol/L [facility] CO2 26 22 - 32 mmol/L [facility] Anion gap 17(H) 2 - 15 mmol/L [facility] BUN 65(H) 6 - 25 mg/dL [facility] Creatinine 8.07(H) 0.80 - 1.30 mg/dL [facility] Glucose 280(H) 70 - 199 mg/dL [facility] Comment: Interpretive Data Fasting glucose >/= 126 mg/dl is diagnostic for diabetes. ?? Fasting is defined as no caloric intake for at least 8 hours. Fasting glucose between 100 mg/dl to 125 mg/dl is diagnostic of prediabetes. In a patient with classic symptoms of hyperglycemia or hyperglycemic crisis, a random glucose >/= 200 mg/dl is diagnostic for diabetes. In the absence of unequivocal hyperglycemia, results should be confirmed by repeat testing. The classification and Diagnosis of Diabetes Diabetes Care 202; 46: S19-S40. Current interpretive data was last revised 2022. Calcium 9.4 8.5 - 10.3 mg/dL [facility] Bilirubin, total 0.3 0.1 - 1.2 mg/dL [facility] Protein, pl 7.2 6.5 - 8.5 g/dL [facility] Albumin 3.8 3.5 - 5.0 g/dL [facility] Alk phos 99 40 - 130 Units/L [facility] ALT 30 7 - 55 Units/L [facility] AST 31 10 - 50 Units/L [facility] Blood 07/29/2024 11:0 1 AM [facility] 07/29/2024 11:33 AM [facility] HAND Narrative [facility] - 07/29/2024 12:10 PM [facility] This lab is being obtained as part of a Kidney transplant evaluation, is time sensitive, and should only be drawn during the evaluation visit at [facility] Lab. us Jossie King MD LAB BLOOD ORDERABL ES Final Result [facility] Department [place] [address] * (ABNORMAL) Oxalate (oxalic acid) (07/29/2024 10:53 AM R[facility]) Oxalate 12.3(H) <=2.0 mcmol/L [facility] Comment: High value suggestive of Primary Hyperoxaluria. However, if the patient has chronic kidney disease (GFR<30 mL/min/1.73m2), plasma oxalate values up to 30 mcmol/L can be normal. The [facility] is available to review case details and answer any questions regarding interpretation ([email or web address]; [phone]) ADDITIONAL INFORMATION This test has been modified from the director of consumer marketing's instructions. Its performance characteristics were determined by [facility] in a manner consistent with CLIA requirements. This test has not been cleared or approved by the U.S. Food and Drug Administration. Test Performed by: [place] [address] Integration Lead: Jairo Higgins Ph.D.; CLIA# [id number] Blood 07/29/2024 10:5 3 AM [facility] 07/29/2024 11:37 AM [facility] us Jossie King MD LAB BLOOD ORDERABL Final Result [facility] Department [place] [address] [facility] * (ABNORMAL) Urinalysis reflex to microscopic (07/29/2024 10:53 AM [facility]) Color, ur Yellow Yellow Clarity, ur Cloudy(A) Clear [facility] Specific gravity, ur 1.022 1.003 - 1.030 [facility] pH, urine 6.0 [facility] Comment: Interpretive Data ? Urine pH is affected by diet, medications, systemic acid-base disturbances, and renal tubular function. ??pH may affect urinary stone formation. ??For example, urine pH below 6.0 may help reduce the tendency for calcium phosphate stones and pH greater than 6.0 may reduce the tendency for uric acid stone formation. Source: [facility] Current Interpretive Data was last revised on 2017 Protein, ur ql 2+(A) Negative [facility] Glucose, ur ql 4+(A) Negative [facility] Ketones, ur Negative Negative [facility] Bilirubin, ur Negative Negative [facility] Blood, ur 3+(A) Negative [facility] Urobilinogen, ur <2.0 <2.0 mg/dL [facility] Nitrite, ur Negative Negative [facility] Leukocyte esterase, ur 2+(A) Negative [facility] UA reflex comment Reflex to microscopic UA will be performed. [facility] Urine 07/29/2024 10:5 3 AM [facility] 07/29/2024 11:27 AM [facility] HAND Narrative [facility] - 07/29/2024 11:29 AM [facility] This lab is being obtained as part of a Kidney transplant evaluation, is time sensitive, and should only be drawn during the evaluation visit at [facility] Lab. us Jossie King MD LAB URINE ORDERABL ES Final Result [facility] Department [place] [address] * (ABNORMAL) Urinalysis, microscopic only (07/29/2024 10:53 AM [facility]) WBC, ur 21-50(A) 0 - 5 /HPF RBC, ur >50(A) 0 - 2 /HPF [facility] Epithelial cells, squamous, ur 1-5 0 - 5 /HPF [facility] Bacteria, ur Trace(A) [facility] Mucous, ur Present(A) [facility] Hyaline casts, ur 1-5 0 - 10 /LPF [facility] Urine 07/29/2024 10:5 3 AM [facility] 07/29/2024 11:27 AM [facility] [employer] us Jossie King MD LAB URINE ORDERABL ES Final Result [facility] Department [place] [address] * Cardiology Document Scan (06/07/2024 11:10 AM CDT) Anatomical Region Laterality Modality Other us Karen Barnes NP CV CARDIAC SERVICES PROCEDUR ES Final Result * (ABNORMAL) TSH (10/27/2023 2:30 AM [facility]) Thyroid Stimulating Hormone 13.20(H) 0.30 - 4.20 mcIUnit/mL Blood 10/27/2023 2:30 AM [facility] 10/27/2023 2:42 AM [facility] Lorne Mcnulty MD LAB BLOOD ORDERABLES Final Result Performing Organization Address City/[facility] Co de Phone Number [facility] [address] [place] [address] from Last 3 Months or Most Recently Relevant to Health Maintenance Insurance [facility] MEDICARE SOLUTIONS IDPA MEDICARE SOLUTIONS TRANSPLANT [employer] MEDICARE RISK IDPA TRANSPLANT OPT MEDICARE RISK IDPA Advance Directives For more information, please contact: [phone] * Full Code (Latest Code Status on File) Date Activated Date Inactivated Comments 10/13/2023 11:32 PM 11/03/2023 11:42 PM * Full Code Date Activated Date Inactivated Comments 06/05/2022 6:17 AM 06/29/2022 6:20 PM * Full Code Date Activated Date Inactivated Comments 06/05/2022 4:43 AM 06/05/2022 4:43 AM * Full Code Date Activated Date Inactivated Comments 06/04/2022 9:55 PM 06/05/2022 4:43 AM Care Teams General Studies Program Chair Relationship Specialty Start Date End Date Aditya Castro MD [address] [place] [address] PCP - General 10/17/19 Alondra Lambert, RN [address] [address] Billet Examiner 03/06/24 Hamlet Ortega Jr., MD [address] [place] [address] Consulting Physician Cardiovascular Disease 05/10/24 Leandro Reyes MD [address] [address] Consulting Physician Nephrology 07/30/24
--- OUTSIDE RECORDS SUMMARY | 2024-08-18 13:03 | XMS_ITS | Encounter Summary ---
Author Organization [facility] Healthcare Address [address] [place] [address] Care Team Providers Care Field Reporter Name Role Phone Aditya Castro MD Primary Care Provider [phone] Alondra Lambert RN Unavailable [phone] Shannon Brock MD, Hamlet P. Unavailable [phone] Reason for Visit * (Routine) - Pending Review Specialty Diagnoses / Procedures Referred By Contac t Referred To Contact Diagnoses End stage renal disease (CMS/HCC) (HCC) Procedures Six Minute Walk - Jossie King MD [address] [place] [address] Phone: tel: fax: [address] [address] Referral ID Status Reason Start Date Expiration Date V isits Requested Visits Authorized [id number] Pending Review 05/10/2024 06/09/2025 1 1 Encounter Details Date Type Department Care Team (Latest Contact Info) Description 07/29/2024 11:02 AM HOSPITAL LIAISON - 07/29/2024 11:59 PM HOSPITAL LIAISON Hospital Encounter [facility] Pulmonary Rehabilitiation Program [address] [facility] [address] [place] [address] Discharge Disposition: Discharge to home or self care Social History Tobacco Use Types Packs/Day Years Used Date Smoking Tobacco: Never Smokeless Tobacco: Former Alcohol Use Standard Drinks/Week Comments No 0 [...] materials from doctor or pharmacy Never 12/01/2023 [facility] Utilities Answer Date Recorded In the past 12 months has th e electric, gas, oil, or water company threatened to shut off services in your home? No 10/16/2023 Social Connection and Isolat ion Panel [NHANES] Answer Date Recorded In a typical week, how many times do you talk on the phone with family, friends, or neighbors? More than three times a week 10/16/2023 How often do you get togethe r with friends or relatives? Twice a week 10/16/2023 How often do you attend chur ch or holiness services? 1 to 4 times per year 10/16/2023 Do you belong to any clubs o r organizations such as zoroastrianism groups, unions, fraternal or athletic groups, or school groups? No 10/16/2023 How often do you attend meet ings of the clubs or organizations you belong to? Never 10/16/2023 Are you , , di vorced, , never , or living with a partner? 10/16/2023 AUDIT-C Answer Date Recorded Q1: How often do you have a drink containing alc ohol? Never 07/29/2024 Average Number of Drinks Not on file 024 Frequency of Binge Drinking Not on file 04/2024 Overall Financial Resource Strain (CARDIA) Answe r Date Recorded How hard is it for you to pa y for the very basics like food, housing, medical care, and heating? Not very hard 10/16/2023 Hunger Vital Sign Answer Date Recorded Within the past 12 months, y ou worried that your food would run out before you got the money to buy more. Never true 10/16/19 24 Within the past 12 months, t he food you bought just didn't last and you didn't have money to get more. Never true 10/16/2023 PRAPARE - Transportation Answer Date Re corded In the past 12 months, has l ack of transportation kept you from medical appointments or from getting medications? No 09/22 In the past 12 months, has l ack of transportation kept you from meetings, work, or from getting things needed for daily living? No 10/16/2023 Housing Stability Vital Sign Answer [...] place to sleep or slept in a alf (including now)? No 10/16/2023 Personal Safety Answer Date Recorded Have you ever been in or are you currently in a harmful physical or emotional relationship or is someone making you feel afraid or unsafe? 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 Male 3:42 AM HOSPITAL LIAISON Gender Identity Not on file Sexual Orientation Not on file documented as of this encounter Medications at Time of Discharge acetaminophen 500 mg capsuleIndications:P ain Take 1 capsule (500 mg total) by mouth every 6 (six) hours as needed for pain 11/03/2023 amiodarone (PACERONE) 200 mg tablet amLODIPine (NORVASC) 10 mg tablet aspirin 81 mg enteric coated tabletIndications:My ocardial Reinfarction Prevention Take 1 tablet (81 mg total) by mouth daily 11/07/2013 atorvastatin (LIPITOR) 80 mg tabletIndications:hy perlipidemia Take 1 tablet (80 mg total) by mouth daily BASAGLAR 100 unit/mL (3 mL) pen for injection 05/16/2024 calcitRIOL (ROCALTROL) 0.25 mcg capsuleIndications:h ypophosphatemia Take 1 capsule (0.25 mcg total) by mouth daily calcium acetate,phosphat bind, (PHOSLO) 667 mg capsuleIndications:h ypocalcemia Take 1 capsule (667 mg total) by mouth 4 (four) times a day (with meals and nightly) With meals and snack cetirizine (ZyrTEC) 10 mg tabletIndications:Al lergic Rhinitis Take 1 tablet (10 mg total) by mouth daily as needed for allergies cholecalciferol (VITAMIN D-3) 2000 unit tabletIndications:Vi tamin D Deficiency Take 25 tablets (50,000 Units total) by mouth once a week colchicine (COLCRYS) 0.6 mg tabletIndications:pr evention of acute gout attack Take 1 tablet (0.6 mg total) by mouth 3 (three) times a week Monday, Monday, Monday cyclobenzaprine (FLEXERIL) 10 mg tablet 07/10/2024 cycloSPORINE (RESTASIS) 0.05 % ophthalmic emulsion 07/19/2024 doxycycline monohydrate (MONODOX) 100 mg capsule erythromycin (ILOTYCIN) ophthalmic ointment 06/25/2024 EZETIMIBE ORAL Take 10 mg by mouth daily famotidine (PEPCID) 40 mg tabletIndications:ga stroesophageal reflux disease,Heartburn Prevention Take 0.5 tablets (20 mg total) by mouth nightly febuxostat (ULORIC) 40 mg tablet 07/13/2024 gemfibroziL (LOPID) 600 mg tabletIndications:hy pertriglyceridemia Take 1 tablet (600 mg total) by mouth 2 (two) times a day before breakfast and lunch Gvoke HypoPen 1-Pack 1 mg/0.2 mL auto-injector HumuLIN N 100 unit/mL (3 mL) pen for injection HYDROcodone-acetamin ophen (NORCO) 5-325 mg per tabletIndications:Pa in Take 1 tablet by mouth every 4 (four) hours as needed for pain 30 tablet 11/03/2023 icosapent ethyL (VASCEPA) 1 gram capsuleIndications:h ypertriglyceridemia Take 2 capsules (2 g total) by mouth 2 (two) times a day insulin aspart (NovoLOG) 100 unit/mL vial for injection insulin lispro (HumaLOG, ADMELOG) 100 unit/mL vial for injectionIndications :type 2 diabetes mellitus THIS IS FOR THE INSULIN PUMP: Continue Omnipod 5 insulin pump with Fliptucom G6 CGM at home settings: TIME BASAL RATE TOTAL BASAL DAILY DOSE: 65.85 0330 1.7 units/hour 0800 0.8 units/hour 2000 5.8 units/hour 06/29/2022 ketoconazole (NIZORAL) 2 % cream APPLY TO THE AFFECTED AREA(S) toenails BY TOPICAL ROUTE ONCE DAILY ketoconazole (NIZORAL) 2 % shampoo APPLY EXTERNALLY 2 TO 3 TIMES EVERY WEEK NEEDED 04/23/2019 lancets 30 gauge misc OneTouch Delica Lancets 30 gauge levothyroxine (SYNTHROID) 25 mcg tabletIndications:hy pothyroidism Take 1 tablet (25 mcg total) by mouth beater machine operator before breakfast 30 tablet 1 11/04/2023 Linzess 72 mcg capsule Take 1 capsule every day by oral route as directed for 90 days. 07/10/2023 metoprolol tartrate (LOPRESSOR) 25 mg immediate release tabletIndications:hy pertension Take 0.5 tablets (12.5 mg total) by mouth 2 (two) times a day 30 tablet 1 11/03/2023 metoprolol XL (TOPROL-XL) 25 mg extended release tablet 06/17/2024 nitroglycerin (NITROSTAT) 0.4 mg SL tablet 12/27/2017 omeprazole (PriLOSEC) 20 mg capsuleIndications:G I Bleed,prevention Take 1 capsule (20 mg total) by mouth daily peg 251-[id number]-wvs cerin (ARTIFICAL TEARS) 1-0.2-0.2 % ophthalmic solution 1 drop 4 (four) times a day 07/07/2022 pen needle, diabetic (BD Ultra-Fine Short Pen Needle) 31 gauge x 5/16 needle 01/30/2018 potassium chloride ER 20 mEq CR tablet tamsulosin (FLOMAX) 0.4 mg extended release capsule TAKE 1 CAPSULE BY MOUTH TWICE DAILY DIRECTED 07/15/2024 torsemide (DEMADEX) 100 mg tabletIndications:Ed avery Take 1 tablet (100 mg total) by mouth daily 30 tablet 1 11/03/2023 valACYclovir (VALTREX) 500 mg tablet warfarin (COUMADIN) 2 mg tabletIndications:Me chanical Valve Thromboembolism Prophylaxis Take 4 mg (2 tabs) daily with dinner, or as directed 60 tablet 1 11/03/2023 documented as of this encounter Discharge Disposition Disposition Code Departure Means Destination Discharge to home or self care documented in this encounter Plan of Treatment Not on file documented as of this encounter Procedures Procedure Name Priority Date/Time Associated Diagnosis Comments SIX MINUTE WALK Routine 07/29/2024 2:46 PM HOSPITAL LIAISON End stage renal disease (CMS/HCC) (HCC) documented in this encounter Results * Six Minute Walk - (07/29/2024 2:46 PM HOSPITAL LIAISON) Anatomical Region Laterality Modality PFT Narrative 07/29/2024 3:52 PM HOSPITAL LIAISON Table formatting from the original result was not included. Davey Pickard V., BATCH MAKER on 07/29/2024 ??2:45 PM Table formatting from the original note was not included. 6 MINUTE WALK RESULTS Name: Juvenal Daigle Jr : 1970 DOS: 07/29/2024 Diagnosis: ESRD/KTE BATCH MAKER performed walk: Carmenza Pickard Rest: 1 min [...] Prescription: RA at rest and with exercise [facility] Jaylen King MD RESPIRATORY CARE O RDERABLES Final Result documented in this encounter Visit Diagnoses Not on filedocumented in this encounter Care Teams Field Reporter Relationship Specialty Start Date End Date Aditya Castro MD [address] [place] [address] PCP - General 10/17/19 Alondra Lambert, RN [address] [facility] [address] [place] [address] Strap Machine Operator Automatic 03/06/24 Hamlet Ortega Jr., MD [address] [place] [address] Consulting Physician Cardiovascular Disease 05/10/24 documented as of this encounter
--- OUTSIDE RECORDS SUMMARY | 2024-08-18 13:03 | XMS_ITS | Encounter Summary ---
Author Organization [facility] Healthcare Address [address] [place] [address] Care Team Providers Care Respiratory Care Practitioner Name Role Phone Aditya Castro MD Primary Care Provider Alondra Lambert RN Unavailable [phone] Shannon Brock MD, Hamlet Gordillo. Unavailable [phone] Reason for Referral * Diagnostic Imaging (Routine) - Pending Review Specialty Diagnoses / Procedures Referred By Contac t Referred To Contact Diagnoses End stage renal disease (CMS/HCC) (HCC) Procedures XR Orthopantogram Panorex Jossie King MD [address] [place] [address] Phone: tel: fax: [facility] [address] [place] [address] Referral ID Status Reason Start Date Expiration Date V isits Requested Visits Authorized [id number] Pending Review 05/10/2024 06/09/2025 1 1 S MERCHANDISE ASSOCIATE Reason for Visit * Diagnostic Imaging (Routine) - Pending Review Specialty Diagnoses / Procedures Referred By Contac t Referred To Contact Diagnoses End stage renal disease (CMS/HCC) (HCC) Procedures XR Orthopantogram Panorex Jossie King MD [address] [place] [address] Phone: tel: fax: [facility] [address] [facility] [address] Referral ID Status Reason Start Date Expiration Date V isits Requested Visits Authorized [id number] Pending Review 05/10/2024 06/09/2025 1 1 Encounter Details Date Type Department Care Team (Latest Contact Info) Description 07/29/2024 10:55 AM SALES MERCHANDISE ASSOCIATE - 07/29/2024 11:59 PM SALES MERCHANDISE ASSOCIATE Hospital Encounter [facility] [address] [place] [id number] End stage renal disease (CMS/HCC) (HCC) Discharge [...] materials from doctor or pharmacy Never 12/01/2023 [facility] Utilities Answer Date Recorded In the past 12 months has e [employer], gas, oil, or water [employer] threatened to shut off services in your [...] 10/16/2023 How often do you attend chur or rastafari services? 1 to 4 times per year 10/16/2023 Do you belong to any clubs o r organizations such as anabaptist groups, unions, fraternal or athletic groups, or [...] place to sleep or slept in a snf (including now)? No 10/16/2023 Personal Safety Answer Date Recorded Have you ever been in or are you currently in a harmful physical or emotional relationship or is someone making you feel afraid or unsafe? 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 Male 3:42 AM SALES MERCHANDISE ASSOCIATE Gender Identity Not on file Sexual Orientation [...] PUMP: Continue Omnipod 5 insulin pump with [employer] G6 CGM at home settings: TIME BASAL [...] 1 tablet (25 mcg total) by mouth risk lead before breakfast 30 tablet 1 11/04/2023 Linzess [...] (20 mg total) by mouth daily peg [id number]-[id number]-sgc cerin (ARTIFICAL TEARS) 1-0.2-0.2 % ophthalmic solution [...] 500 mg tablet warfarin (COUMADIN) 2 mg tabletIndications:Sc chanical Valve Thromboembolism Prophylaxis Take 4 mg (2 tabs) daily with dinner, or as directed 60 tablet 1 11/03/2023 documented as of this encounter Discharge Disposition Disposition Code Departure Means Destination Discharge to home or self care documented in this encounter Plan of Treatment Not on file documented as of this encounter Procedures Procedure Name Priority Date/Time Associated Diagnosis Comments XR ORTHOPANTOGRAM/PA NOREX Schedule Routine, Read Routine (OP Routine) 07/29/2024 11:44 AM SALES MERCHANDISE ASSOCIATE End stage renal disease (CMS/[facility]) ([facility]) documented in this encounter Results * XR Orthopantogram Panorex (07/29/2024 11:44 AM SALES MERCHANDISE ASSOCIATE) Anatomical Region Laterality Modality Head and Neck N/A Panoramic X-Ray 07/29/2024 12:5 9 PM SALES MERCHANDISE ASSOCIATE Impressions 07/29/2024 12:59 PM SALES MERCHANDISE ASSOCIATE 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 Electronically signed by: Julio Pinedo M.D. Narrative 07/29/2024 12:59 PM SALES MERCHANDISE ASSOCIATE EXAMINATION: XR ORTHOPANTOGRAM/PANOREX HISTORY: Kidney Transplant Evaluation [...] King MD IMG XR PROCEDURES Final Result documented in this encounter Visit Diagnoses Diagnosis End stage renal disease (CMS/HCC) (HCC) End stage renal disease documented in this encounter Care Teams Respiratory Care Practitioner Relationship Specialty Start Date End Date Aditya Castro MD [address] [place] [place] [address] PCP - General 10/17/19 Alondra Lambert, RN [address] [facility] [address] [place] [address] Advance Scout 03/06/24 Hamlet Ortega Jr., MD [address] [place] [address] Consulting Physician Cardiovascular Disease 05/10/24 documented as of this encounter
--- OUTSIDE RECORDS SUMMARY | 2024-08-18 13:03 | XMS_ITS | Encounter Summary ---
Author Organization [facility] Healthcare Address [address] [place] [address] Care Team Providers Care Service Cleaner Name Role Phone Aditya Castro MD Primary Care Provider [phone] Alondra Lambert RN Unavailable [phone] Shannon Brock MD, Hamlet Gordon Unavailable [phone] Encounter Details Date Type Department Care Team (Late st Contact Info) Description 07/26/2024 Telephone [facility] Transplant Kidney [address] [facility] [address] [phone] [place], [place] [id number] Alondra Lambert, RN [address] [facility] [address] [place] [id number] Social History Tobacco Use Types Packs/Day Years [...] materials from doctor or pharmacy Never 12/01/2023 [facility] Utilities Answer Date Recorded In the [...] often do you attend chur ch or anglican services? 1 to 4 times per year 10/16/2023 Do you belong to any clubs o r organizations such as shinto groups, unions, fraternal or athletic groups, or school groups? No 10/16/2023 How often do you attend meet ings of the clubs or organizations you belong to? Never 10/16/2023 Are you , , di vorced, , never , or living with a partner? 10/16/2023 AUDIT-C Answer Date Recorded Q1: How often do you have a drink containing alc ohol? Monthly or less 06/07/2022 Q2: How many drinks containi ng alcohol do you have on a typical day when you are drinking? 3 or 4 06/07/2022 Q3: How often do you have si x or more drinks on one occasion? Never 06/07/2022 Overall Financial Resource Strain (CARDIA) Answe r [...] place to sleep or slept in a care home (including now)? No 10/16/2023 Personal Safety Answer Date Recorded Have you ever been in or are you currently in a harmful physical or emotional relationship or is someone making you feel afraid or unsafe? 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 [employer] documented in this encounter Plan of Treatment Not on file documented as of this encounter Visit Diagnoses Not on filedocumented in this encounter Care Teams Service Cleaner Relationship Specialty Start Date End Date Aditya Castro MD [address] [facility] [place] [address] PCP - General 10/17/19 Alondra Lambert, RN [address] [facility] [address] [place] [address] Inspector Finishing 03/06/24 Hamlet Ortega Jr., MD [address] [place] [address] Consulting Physician Cardiovascular Disease 05/10/24 documented as of this encounter
--- OUTSIDE RECORDS SUMMARY | 2024-08-18 13:03 | XMS_ITS | Encounter Summary ---
Author Organization [facility] Healthcare Address [address] [place] [address] Care Team Providers Care Pipe Bender Name Role Phone Aditya Castro MD Primary Care Provider [phone] Alondra Lambert RN Unavailable [phone] Shannon Brock MD, Hamlet Gordillo. Unavailable [phone] Reason for Referral * Diagnostic Imaging (Routine) - Pending Review Specialty Diagnoses / Procedures Referred By Contac t Referred To Contact Radiology Diagnoses End stage renal disease (CMS/HCC) (HCC) Procedures CT Abdomen Pelvis WO Contrast Jossie King MD [address] [place] [address] Phone: tel: fax: [facility] [address] [place] [address] Referral ID Status Reason Start Date Expiration Date V isits Requested Visits Authorized [id number] Pending Review 05/10/2024 06/09/2025 1 1 BUILDER Reason for Visit * Diagnostic Imaging (Routine) - Pending Review Specialty Diagnoses / Procedures Referred By Contac t Referred To Contact Radiology Diagnoses End stage renal disease (CMS/HCC) (HCC) Procedures CT Abdomen Pelvis WO Contrast Jossie King MD [address] [place] [address] Phone: tel: fax: [facility] [address] [facility] [place] [address] Referral ID Status Reason Start Date Expiration Date V isits Requested Visits Authorized [id number] Pending Review 05/10/2024 06/09/2025 1 1 Encounter Details Date Type Department Care Team (Latest Contact Info) Description 07/29/2024 10:58 AM BEAM BUILDER - 07/29/2024 11:59 PM BEAM BUILDER Hospital Encounter [facility] [address] [place] [address] End stage renal disease (CMS/HCC) (HCC) Discharge [...] materials from doctor or pharmacy Never 12/01/2023 [facility] Utilities Answer Date Recorded In the past 12 months has e [employer], gas, oil, or water [employer] threatened to shut off services in your [...] often do you attend chur ch or pentecostal services? 1 to 4 times per year 10/16/2023 Do you belong to any clubs o r organizations such as baptist groups, unions, fraternal or athletic groups, or [...] place to sleep or slept in a retirement (including now)? No 10/16/2023 Personal Safety Answer Date Recorded Have you ever been in or are you currently in a harmful physical or emotional relationship or is someone making you feel afraid or unsafe? 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 Male 3:42 AM BEAM BUILDER Gender Identity Not on file Sexual Orientation [...] PUMP: Continue Omnipod 5 insulin pump with [employer] G6 CGM at home settings: TIME BASAL [...] 1 tablet (25 mcg total) by mouth leguillon debeader before breakfast 30 tablet 1 11/04/2023 Linzess [...] (20 mg total) by mouth daily peg [id number]-wxe cerin (ARTIFICAL TEARS) 1-0.2-0.2 % ophthalmic solution [...] 500 mg tablet warfarin (COUMADIN) 2 mg tabletIndications:Nd chanical Valve Thromboembolism Prophylaxis Take 4 mg [...] Diagnosis Comments CT ABDOMEN PELVIS WO CONTRAST Schedule Routine, Read Routine (OP Routine) 07/29/2024 12:43 PM BEAM BUILDER End stage renal disease (CMS/HCC) (HCC) documented in this encounter Results * CT Abdomen Pelvis WO Contrast (07/29/2024 12:43 PM BEAM BUILDER) Anatomical Region Laterality Modality Body N/A Computed Tomogra phy 07/29/2024 1:04 PM BEAM BUILDER Impressions 07/29/2024 1:04 PM BEAM BUILDER 1. ??Moderate discontinuous atherosclerotic calcifications involve the [...] Teresa Rivera M.D. Narrative 07/29/2024 1:04 PM BEAM BUILDER EXAMINATION: ??Computed tomography of the abdomen and [...] Electronically signed by: Maria Teresa Rivera M.D. [facility] Jaylen King MD IMG CT PROCEDURES Final Result documented in this encounter Visit Diagnoses Diagnosis End stage renal disease (CMS/HCC) (HCC) End stage renal disease documented in this encounter Care Teams Pipe Bender Relationship Specialty Start Date End Date Aditya Castro MD [address] [facility] [place] [address] PCP - General 10/17/19 Alondra Lambert RN [address] [facility] [address] [place] [address] Pickling Operator 03/06/24 Hamlet Ortega Jr., MD [address] [place] [address] Consulting Physician Cardiovascular Disease 05/10/24 documented as of this encounter
--- OUTSIDE RECORDS SUMMARY | 2024-08-18 13:03 | XMS_ITS ---
Author Organization [facility] Address [address] [place] [address] Care Team Providers Care Animal Control Specialist Name Role Phone Aditya Castro MD Primary Care Provider [phone] Alondra Lambert RN Unavailable [phone] Shannon Brock MD, [place] P. Unavailable [phone] Leandro Reyes MD Unavailable [phone] Dialysis Access Sites Type Status Location Placement Date Removal Da te Peritoneal Dialysis Catheter Continuous cycling Active Hemodialysis Cath Double Inactive Right N emiliano (side) - Anterior 06/18/2022 06/25/2022 Hemodialysis Cath Triple Inactive Neck - Anterior 202106/16/2022 Procedures Procedure Name Priority Date/Time Associated Diagnosis Comments HLA SOLID ORGAN TYPING REPORT 08/02/2024 9:04 AM OFFICE MACHINE MECHANIC SIX MINUTE WALK Routine 07/29/2024 2:46 PM OFFICE MACHINE MECHANIC End stage renal disease (CMS/HCC) (HCC) CT ABDOMEN PELVIS WO CONTRAST Schedule Routine, Read Routine (OP Routine) 07/29/2024 12:43 PM OFFICE MACHINE MECHANIC End stage renal disease (CMS/HCC) (HCC) XR ORTHOPANTOGRAM/PANOR EX Schedule Routine, Read Routine (OP Routine) 07/29/2024 11:44 AM OFFICE MACHINE MECHANIC End stage renal disease (CMS/HCC) (HCC) TYPE AND SCREEN Routine 07/29/2024 11:23 AM OFFICE MACHINE MECHANIC End stage renal disease (CMS/HCC) (HCC) ECG 12-LEAD Routine 07/29/2024 11:14 AM OFFICE MACHINE MECHANIC End stage renal disease (CMS/HCC) (HCC) ABO/RH Routine 07/29/2024 11:13 AM OFFICE MACHINE MECHANIC EGFR Routine 07/29/2024 11:01 AM OFFICE MACHINE MECHANIC End stage renal disease (CMS/HCC) (HCC) DIFFERENTIAL AUTO Routine 07/29/2024 11: 01 AM OFFICE MACHINE MECHANIC End stage renal disease (CMS/HCC) (HCC) CBC WITH AUTO DIFFERENTIAL Routine 07/29/2024 11:01 AM OFFICE MACHINE MECHANIC End stage renal disease (CMS/HCC) (HCC) COMPREHENSIVE METABOLIC PANEL Routine 07/29/2024 11:01 AM OFFICE MACHINE MECHANIC End stage renal disease (CMS/HCC) (HCC) CREATININE, URINE, RANDOM Routine 07/29/2024 11:01 AM OFFICE MACHINE MECHANIC End stage renal disease (CMS/HCC) (HCC) FERRITIN Routine 07/29/2024 11:01 AM OFFICE MACHINE MECHANIC End stage renal disease (CMS/HCC) (HCC) GAMMA GT Routine 07/29/2024 11:01 AM OFFICE MACHINE MECHANIC End stage renal disease (CMS/HCC) (HCC) HEMOGLOBIN A1C Routine 07/29/2024 11:01 AM OFFICE MACHINE MECHANIC End stage renal disease (CMS/HCC) (HCC) IRON PROFILE W/ IBC Routine 07/29/2024 1 1:01 AM OFFICE MACHINE MECHANIC End stage renal disease (CMS/HCC) (HCC) LIPID PANEL Routine 07/29/2024 11:01 AM OFFICE MACHINE MECHANIC End stage renal disease (CMS/HCC) (HCC) PTH Routine 07/29/2024 11:01 AM OFFICE MACHINE MECHANIC End stage renal disease (CMS/HCC) (HCC) APTT Routine 07/29/2024 11:01 AM OFFICE MACHINE MECHANIC End stage renal disease (CMS/HCC) (HCC) PHOSPHORUS Routine 07/29/2024 11:01 AM OFFICE MACHINE MECHANIC End stage renal disease (CMS/HCC) (HCC) PROTEIN, URINE, RANDOM Routine 07/29/2024 11:01 AM OFFICE MACHINE MECHANIC End stage renal disease (CMS/HCC) (HCC) PROTIME-INR Routine 07/29/2024 11:01 AM OFFICE MACHINE MECHANIC End stage renal disease (CMS/HCC) (HCC) URIC ACID Routine 07/29/2024 11:01 AM OFFICE MACHINE MECHANIC End stage renal disease (CMS/HCC) (HCC) PSA SCREEN Routine 07/29/2024 11:01 AM OFFICE MACHINE MECHANIC End stage renal disease (CMS/HCC) (HCC) LR HLA TYPING (CLASS I AND CLASS II) Routine 07/29/2024 11:01 AM OFFICE MACHINE MECHANIC End stage renal disease (CMS/HCC) (HCC) HLA CLASS I DNA (ABC) RECIPIENT Routine 07/29/2024 11:01 AM OFFICE MACHINE MECHANIC End stage renal disease (CMS/HCC) (HCC) HLA CLASS II DNA (DR, DQ, DP) RECIPIENT Routine 07/29/2024 11:01 AM OFFICE MACHINE MECHANIC End stage renal disease (CMS/HCC) (HCC) HLA ANTIBODY SCREEN - SAB (CLASS I AND CLASS II) Routine 07/29/2024 11:01 AM OFFICE MACHINE MECHANIC End stage renal disease (CMS/HCC) (HCC) HLA ANTIBODY SCREEN BY SINGLE ANTIGEN Routine 07/29/2024 11:01 AM OFFICE MACHINE MECHANIC End stage renal disease (CMS/HCC) (HCC) CMV, IGG Routine 07/29/2024 11:01 AM OFFICE MACHINE MECHANIC End stage renal disease (CMS/HCC) (HCC) MADIHA-MORRIS VIRUS VCA ANTIBODY PANEL Routine 07/29/2024 11:01 AM OFFICE MACHINE MECHANIC End stage renal disease (CMS/HCC) (HCC) HIV 1/2 ANTIBODY PLUS P24 ANTIGEN Routine 07/29/2024 11:01 AM OFFICE MACHINE MECHANIC End stage renal disease (CMS/HCC) (HCC) HSV 1 ANTIBODY, IGG Routine 07/29/2024 1 1:01 AM OFFICE MACHINE MECHANIC End stage renal disease (CMS/HCC) (HCC) HSV 2 ANTIBODY, IGG Routine 07/29/2024 1 1:01 AM OFFICE MACHINE MECHANIC End stage renal disease (CMS/HCC) (HCC) HEPATITIS B CORE ANTIBODY, TOTAL Routine 07/29/2024 11:01 AM OFFICE MACHINE MECHANIC End stage renal disease (CMS/HCC) (HCC) HEPATITIS B SURFACE ANTIBODY (IMMUNE STATUS) Routine 07/29/2024 11:01 AM OFFICE MACHINE MECHANIC End stage renal disease (CMS/HCC) (HCC) HEPATITIS B SURFACE ANTIGEN Routine 07/29/2024 11:01 AM OFFICE MACHINE MECHANIC End stage renal disease (CMS/HCC) (HCC) HEPATITIS C ANTIBODY Routine 07/29/2024 11:01 AM OFFICE MACHINE MECHANIC End stage renal disease (CMS/HCC) (HCC) RPR Routine 07/29/2024 11:01 AM OFFICE MACHINE MECHANIC End stage renal disease (CMS/HCC) (HCC) VARICELLA ZOSTER ANTIBODY, IGG Routine 07/29/2024 11:01 AM OFFICE MACHINE MECHANIC End stage renal disease (CMS/HCC) (HCC) URINALYSIS, MICROSCOPIC ONLY Routine 07/29/2024 10:53 AM OFFICE MACHINE MECHANIC End stage renal disease (CMS/HCC) (HCC) OXALATE Routine 07/29/2024 10:53 AM OFFICE MACHINE MECHANIC ESRD (end stage renal disease) ([facility] ([facility]) URINALYSIS AND REFLEX TO MICROSCOPIC Routine 07/29/2024 10:53 AM OFFICE MACHINE MECHANIC End stage renal disease ([facility] ([facility]) CARDIOLOGY DOCUMENT SCAN Routine 06/07/2024 11:10 AM CDT TSH Routine 10/27/2023 2:30 AM OFFICE MACHINE MECHANIC from Last 3 Months or Most Recently Relevant to Health Maintenance Allergies Active Allergy Reactions Criticality Noted Date [...] PUMP: Continue Omnipod 5 insulin pump with [employer] G6 CGM at home settings: TIME BASAL RATE TOTAL BASAL DAILY DOSE: 65.85 0330 1.7 units/hour 0800 0.8 units/hour 2000 5.8 units/hour 06/29/20 22 Active famotidine (PEPCID) [...] 1 tablet (25 mcg total) by mouth pararescue manager before breakfast 30 tablet 1 11/04/19 24 [...] mg SL tablet 12/28/19 18 Active peg [id number]-fn ycerin (ARTIFICAL TEARS) 1-0.2-0.2 % ophthalmic solution 1 drop 4 (four) times a day 07/07/20 Active potassium chloride ER 20 mEq CR tablet Active Active Problems Problem Noted Date Diagnosed Date End stage renal disease [place] 07/29/2024 Nonrheumatic aortic valve stenosis 11/22/2023 Status post aortic valve replacement 11/22/2023 Status post coronary artery bypass grafting 10/2023 CAD in lummi artery 10/13/2023 Anemia 06/22/2022 Assessment & Plan (06/29/2022 10:12 AM OFFICE MACHINE MECHANIC): Stable, likely 2/2 anemia from ESRD, no [...] trend Hb. ESRD (end stage renal disease) ([facility]) 022 Assessment & Plan (06/29/2022 10:12 AM OFFICE MACHINE MECHANIC): - Renal consulted, s/p CRRT in the ICU now back on PD. Tolerated well and nephrology following - Trialysis catheter removed - Continue vitamins for renal bone mineral disease. Assessment & Plan (06/28/2022 3:29 PM OFFICE MACHINE MECHANIC): - Renal consulted, s/p CRRT in the [...] 06/22/2022 Assessment & Plan (06/29/2022 10:12 AM OFFICE MACHINE MECHANIC): C/b cardiogenic shock requiring impella in the setting of cath and AHRF 2/2 pulmonary edema, now resolved. TTE demonstrating recovered EF 65% with grade I diastolic dysfunction. - metop as above - continue low dose losartan 12.5mg daily, ok per nephro. Tolerating well - volume management per PD Assessment & Plan (06/28/2022 3:29 PM OFFICE MACHINE MECHANIC): C/b cardiogenic shock requiring impella in the [...] tartrate, start GDMT per cardiology. Atrial fibrillation ([facility]/HCC) 06/22/2022 Assessment & Plan (06/29/2022 10:12 AM OFFICE MACHINE MECHANIC): Converted to NSR overnight on 06/24. CHADsVASc of 4 not on anticoagulation prior to admission. - cardiology consulted - recommended ongoing rate control - holding off on a/c with high risk for bleeding while on DAPT - reduced metop to 25mg BID in the setting of hypotension, HR 70s NSR Assessment & Plan (06/28/2022 3:30 PM OFFICE MACHINE MECHANIC): Converted to NSR overnight on 06/24. CHADsVASc [...] AC. NSTEMI (non-ST elevated myocardial infarction) ( [facility]) 06/22/2022 Assessment & Plan (06/29/2022 10:11 AM OFFICE MACHINE MECHANIC): With recurrent chest pain post-cath. He has [...] today Assessment & Plan (06/28/2022 3:30 PM OFFICE MACHINE MECHANIC): With recurrent chest pain post-cath. He has [...] 06/22/2022 Assessment & Plan (06/29/2022 10:11 AM OFFICE MACHINE MECHANIC): Secondary to NSTEMI, s/p Impella since removed on 06/10. Resolved. Assessment & Plan (06/23/2022 4:55 PM CDT): Secondary to NSTEMI, s/p Impella since removed on 06/10. Resolved. Assessment & Plan (06/22/2022 8:22 PM CDT): -Secondary to NSTEMI, s/p Impella since removed on 06/10. 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 ([facility]) 05/23/2017 History of coronary artery stent placement 05/23 Macular ischemia 03/17/2017 Combined forms of age-related cataract 7 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 03/17/2017 Type 2 diabetes mellitus treated with insulin ([facility]/HCC) 03/25/2015 Overview (11/25/2016): Insulin treated Type II diabetes mellitus Chronic kidney disease, stage III (moderate) 12/2014 Overview (11/25/2016): Chronic kidney disease, stage 3 Benign essential hypertension 03/25/2015 Overview (11/25/2016): Benign essential HTN Hyperlipidemia 03/25/2015 Overview (11/25/2016): Hyperlipidemia Pain of finger 11/24/2014 Hypersomnia 11/22/2013 Chronic kidney disease 11/22/2013 Hypertension 01/18/2013 Type 1 diabetes mellitus 01/18/2013 Assessment & Plan (06/29/2022 10:12 AM OFFICE MACHINE MECHANIC): A1c well controlled on admission. He uses [...] session Assessment & Plan (06/28/2022 3:28 PM OFFICE MACHINE MECHANIC): A1c well controlled on admission. He uses [...] hyperglycemic episodes. -Continue insulin regimen per endocrine. Immunizations Name Administration Dates Next Due Influenza, Quadrivalent, Spl it, Preservative Free, Intramuscular 06/04/2022 Pneumococcal Conjugate PCV 13 12/30/2019 Pneumococcal Polysaccharide PPV23 08/26/2019 Social History Tobacco Use Types Packs/Day Years [...] materials from doctor or pharmacy Never 12/01/2023 [facility] Utilities Answer Date Recorded In the past 12 months has th e [employer], [employer], oil, or water [employer] threatened to shut off services in your home? No 08/01/2024 Social Connection and Isolation Panel [NHANES] A nswer Date Recorded In a typical week, how many times do you talk on the phone with family, friends, or neighbors? Twice a week 08/01/2024 How often do you get together with friends or re latives? Once a week 08/01/2024 How often do you attend lutheran or bahai serv ices? Never 08/01/2024 Do you belong to any clubs o r organizations such as lutheran groups, unions, fraternal or athletic groups, or [...] place to sleep or slept in a penitentiary (including now)? No 10/16/2023 Housing Stability Vital Sign Answer Rubens e Recorded In the last 12 months, was t here a time when you were not able to pay the mortgage or rent on time? No 08/01/2024 In the past 12 months, how m any times have you moved where you were living? 1 08/01/2024 At any time in the past 12 m [facility], were you homeless or living in a penitentiary (including now)? No 08/01/2024 Personal Safety Answer Date Recorded Have you ever been in or are you currently in a harmful physical or emotional relationship or is someone making you feel afraid or unsafe? 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 MACHINE MECHANIC Gender Identity Not on file Sexual Orientation Not on file Last Filed Vital Signs Vital Sign Reading Time Taken Comments Blood Pressure 122/75 07/29/2024 1:00 PM OFFICE MACHINE MECHANIC Pulse 116 07/29/2024 1:00 PM OFFICE MACHINE MECHANIC Temperature 36.8 ??C (98.2 ??F) 07/29/2024 1:00 PM CS T Respiratory Rate 16 12/01/2023 11:1 3 AM CDT Oxygen Saturation 96% 12/01/2023 11: 13 AM CDT Inhaled Oxygen Concentration - - Weight 121.2 kg (267 lb 1.6 oz) 07/29/2024 1:00 PM OFFICE MACHINE MECHANIC Height 177.8 cm (5' 10 ) 07/29/2024 1:00 PM OFFICE MACHINE MECHANIC Body Mass Index 38.32 07/29/2024 1:00 PM OFFICE MACHINE MECHANIC Results * HLA Solid Organ Typing Report (08/02/2024 9:04 AM OFFICE MACHINE MECHANIC) us Jossie King MD LAB GENETIC TESTIN G Final Result * Six Minute Walk - (07/29/2024 2:46 PM OFFICE MACHINE MECHANIC) Anatomical Region Laterality Modality PFT Narrative 07/29/2024 3:52 PM OFFICE MACHINE MECHANIC Table formatting from the original result was not included. Davey Pickard V., SYSTEM SAFETY ENGINEER on 07/29/2024 ??2:45 PM Table formatting from the original note was not included. 6 MINUTE WALK RESULTS Name: Juvenal Daigle Jr : 1970 DOS: 07/29/2024 Diagnosis: ESRD/KTE SYSTEM SAFETY ENGINEER performed walk: Carmenza Pickard Rest: 1 [...] Prescription: RA at rest and with exercise us Jossie King MD RESPIRATORY CARE O TOMAS Final Result * CT Abdomen Pelvis WO Contrast (07/29/2024 12:43 PM OFFICE MACHINE MECHANIC) Anatomical Region Laterality Modality Body N/A Computed Tomogra phy 07/29/2024 1:04 PM OFFICE MACHINE MECHANIC Impressions 07/29/2024 1:04 PM OFFICE MACHINE MECHANIC 1. ??Moderate discontinuous atherosclerotic calcifications involve the [...] Teresa Rivera M.D. Narrative 07/29/2024 1:04 PM OFFICE MACHINE MECHANIC EXAMINATION: ??Computed tomography of the abdomen and [...] Maria Teresa Rivera M.D. Jossie King MD IM CT PROCEDURES Final Result * XR Orthopantogram Panorex (07/29/2024 11:44 AM OFFICE MACHINE MECHANIC) Anatomical Region Laterality Modality Head and Neck N/A Panoramic X-Ray 07/29/2024 12:5 9 PM OFFICE MACHINE MECHANIC Impressions 07/29/2024 12:59 PM OFFICE MACHINE MECHANIC 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 Electronically signed by: Julio Pinedo M.D. Narrative 07/29/2024 12:59 PM OFFICE MACHINE MECHANIC EXAMINATION: XR ORTHOPANTOGRAM/PANOREX HISTORY: Kidney Transplant Evaluation [...] * Type and screen (07/29/2024 11:23 AM OFFICE MACHINE MECHANIC) Maribel, indirect Negative ABO Rh A Positive [facility] Blood 07/29/2024 11:2 3 AM OFFICE MACHINE MECHANIC 07/29/2024 11:43 AM OFFICE MACHINE MECHANIC Narrative [facility] - 07/29/2024 12:45 PM OFFICE MACHINE MECHANIC Please draw the ABO and the Type and Screen as two separate blood draws with each stamped with the two different times stamps as this is a regulatory requirement for this patient to be listed for Kidney Transplant. ??This lab is being obtained as part of a Kidney transplant evaluation, is time sensitive, and should only be drawn during the evaluation visit at [facility] Lab. Has the patient had Daratumumab or Isatuximab in the past 6 months?->Unknown Jossie King MD LAB BLOOD BANK ERNESTO T ORDERABLES Final Result [facility] Department [place] [address] * ECG 12 lead (07/29/2024 11:14 AM OFFICE MACHINE MECHANIC) Ventricular Rate EKG/Min 117 BPM [facility] Atrial Rate 117 BPM [facility] OR-Interval (MSEC) 144 ms [facility] QRS-Interval (MSEC) 126 ms [facility] QT-Interval (MSEC) 366 ms [facility] QTc 510 ms [facility] R [place] -40 degrees [facility] T [place] 147 degrees [facility] Diagnosis Poor data quality, interpretation [...] Inferior leads Confirmed by FERDINAND SAL M.D ([id number]) on 07/29/2024 3:38:41 PM [facility] 07/29/2024 11:1 4 AM OFFICE MACHINE MECHANIC 07/29/2024 3:38 PM OFFICE MACHINE MECHANIC Jossie King MD ECG ORDERABLES Fi nal Result [facility] * ABO/Rh (07/29/2024 11:13 AM OFFICE MACHINE MECHANIC) Pathologist [facility] ABO Rh A Positive Blood 07/29/2024 11:1 3 AM OFFICE MACHINE MECHANIC 07/29/2024 2:45 PM OFFICE MACHINE MECHANIC Jossie King MD LAB BLOOD BANK ERNESTO T ORDERABLES Final Result [facility] Department [place] [address] * LR HLA Typing (Class I and Class II) (07/29/2024 11:01 AM OFFICE MACHINE MECHANIC) r-SSO [facility] A First [place] A*03 [facility] [...] 07/30/24 [facility] Blood 07/29/2024 11:0 1 AM OFFICE MACHINE MECHANIC 08/02/2024 9:03 AM OFFICE MACHINE MECHANIC Narrative [facility] - 08/02/2024 9:03 AM [facility] DNA was extracted from whole blood or buccal cell specimens, and relevant genomic regions were amplified by polymerase chain reactions (PCR). HLA typing was performed on PCR amplicons using reverse sequence-specific oligonucleotide (r-SSO) and/or sequence-specific primers (SSP) based techniques. r-SSO and SSP are FDA approved as IVD tests and validated by the [facility]. Testing performed at the [facility], [address] [place] [address], 5th floor, [place], [address]. IA # [id number]. Dorothy Meade, Ph.D., Bill Of Materials Clerk, HLA Laboratory Rell Samuels M.D., Ph.D., Risk Control Specialist, HLA Laboratory Licha Nieto, Ph.D., KIARRA Risk Control Specialist, [facility] Current methodology comment last revised on 04/25/17. Jossie King MD LAB BLOOD ORDERABL ES Final Result Performing Organization Address [facility] Co de Phone Number [facility] * Collection Task for HLA Typing 1 (07/29/2024 11:01 AM OFFICE MACHINE MECHANIC) HLA Class I DNA (ABC) Recipient Received Blood 07/29/2024 11:0 1 AM OFFICE MACHINE MECHANIC 07/29/2024 11:56 AM OFFICE MACHINE MECHANIC Jossie King MD LAB BLOOD ORDERABL ES Final Result Performing Organization Address [facility] Co de Phone Number [facility] Department [place] [address] * Collection Task for HLA Antibody Screen (07/29/2024 11:01 AM OFFICE MACHINE MECHANIC) Pathologist [facility] HLA Antibody Screen By Single Antigen Received Blood 07/29/2024 11:0 1 AM OFFICE MACHINE MECHANIC 07/29/2024 11:56 AM OFFICE MACHINE MECHANIC Jossie King MD LAB BLOOD ORDERABL ES Final Result Performing Organization Address [facility] de Phone Number [facility] [place] [address] * Collection Task for HLA Typing 2, Patient (07/29/2024 11:01 AM OFFICE MACHINE MECHANIC) HLA Class II DNA (DR, DQ, DP) Recipient Received Blood 07/29/2024 11:0 1 AM OFFICE MACHINE MECHANIC 07/29/2024 11:56 AM OFFICE MACHINE MECHANIC Jossie King MD LAB BLOOD ORDERABL ES Final Result Performing Organization Address [facility]/ZIP Co de Phone Number ALESSANDRA CARRION [facility] Department [place] [address] * (ABNORMAL) eGFR (07/29/2024 11:01 AM OFFICE MACHINE MECHANIC) [facility] eGFR 7(L) >=60 mL/min/1. 73 m2 Comment: [...] of Race in Diagnosing Kidney Disease, JASN 202). The CKD-EPI equation should not be used for patients with unstable renal function and has not been validated in children and those over 70. Current interpretive data was last reviewed 2021. Blood 07/29/2024 11:0 1 AM OFFICE MACHINE MECHANIC 07/29/2024 11:33 AM OFFICE MACHINE MECHANIC us Jossie King MD LAB BLOOD ORDERABL ES Final Result Performing Organization Address [facility] Co de Phone Number ALESSANDRA CARRION Billie [facility] Department [place] [address] * Differential, auto (07/29/2024 11:01 AM OFFICE MACHINE MECHANIC) Neutrophil abs 3.1 1.5 - 6.5 K/cumm Imm gran abs 0.0 0.0 - 0.1 K/cumm [facility] Lymphocyte abs 1.1 0.8 - 3.3 K/cumm [facility] Monocyte abs 0.7 0.2 - 0.8 K/cumm [facility] Eosinophil abs 0.2 0.0 - 0.5 K/cumm [facility] Basophil abs 0.0 0.0 - 0.1 K/cumm [facility] Neutrophil pct 60.3 % [facility] Comment: Interpretive Data Percent cell count reference ranges are not reported, since discordance with absolute values may lead to misinterpretation of CBC data. Current Interpretive Data was last revised on 2017. Imm gran pct 0.6 % [facility] Comment: Interpretive Data Percent cell count reference ranges are not reported, since discordance with absolute values may lead to misinterpretation of CBC data. Current Interpretive Data was last revised on 2017. Lymphocyte pct 21.4 % [facility] Comment: Interpretive Data Percent cell count reference ranges are not reported, since discordance with absolute values may lead to misinterpretation of CBC data. Current Interpretive Data was last revised on 2017. Monocyte pct 13.7 % [facility] Comment: Interpretive Data Percent cell count reference ranges are not reported, since discordance with absolute values may lead to misinterpretation of CBC data. Current Interpretive Data was last revised on 2017. Eosinophil pct 3.2 % [facility] Comment: Interpretive Data Percent cell count reference ranges are not reported, since discordance with absolute values may lead to misinterpretation of CBC data. Current Interpretive Data was last revised on 2017. Basophil pct 0.8 % [facility] Comment: Interpretive Data Percent cell count reference ranges are not reported, since discordance with absolute values may lead to misinterpretation of CBC data. Current Interpretive Data was last revised on 2017. Blood 07/29/2024 11:0 1 AM OFFICE MACHINE MECHANIC 07/29/2024 11:34 AM OFFICE MACHINE MECHANIC Jossie King MD LAB BLOOD ORDERABL ES Final Result Performing Organization Address [facility] de Phone Number [facility] Billie [facility] Department [place] [address] * PSA screen (07/29/2024 11:01 AM OFFICE MACHINE MECHANIC) PSA-Total 0.55 <=3.90 ng/mL Comment: Interpretive Data [...] revised 21. Blood 07/29/2024 11:0 1 AM OFFICE MACHINE MECHANIC 07/29/2024 11:33 AM OFFICE MACHINE MECHANIC Narrative [facility]DRA [facility] - 07/29/2024 12:39 PM OFFICE MACHINE MECHANIC This lab is being obtained as part of a Kidney transplant evaluation, is time sensitive, and should only be drawn during the evaluation visit at [facility] Lab. us Jossie King MD LAB BLOOD ORDERABL ES Final Result Performing Organization Address [facility] Co de Phone Number [facility] Department [place] [address] * (ABNORMAL) Iron profile w/ IBC (07/29/2024 11:01 AM OFFICE MACHINE MECHANIC) [facility] Iron 62 50 - 150 mcg/dL TIBC 208(L) 250 - 400 mcg/dL [facility] Transferrin saturation 30 20 - 50 % [facility] Blood 07/29/2024 11:0 1 AM OFFICE MACHINE MECHANIC 07/29/2024 11:33 AM OFFICE MACHINE MECHANIC Narrative [facility] - 07/29/2024 12:10 PM OFFICE MACHINE MECHANIC This lab is being obtained as part of a Kidney transplant evaluation, is time sensitive, and should only be drawn during the evaluation visit at [address] Lab[address] Jossie King MD LAB BLOOD ORDERABL ES Final Result [facility] Department [place] [address] * HIV 1/2 Antibody plus p24 Antigen Blood (07/29/2024 11:01 AM OFFICE MACHINE MECHANIC) [facility] HIV 1/2 ab + p24 ag Nonreactive Nonreactive Comment:Nonreactive for HIV- 1 antigen and HIV-1/HIV-2 antibodies. No laboratory evidence of HIV infection. If acute HIV infection is suspected, consider testing for HIV-1 RNA. Current interpretive data was last revised on 22. Blood 07/29/2024 11:0 1 AM OFFICE MACHINE MECHANIC 07/29/2024 11:32 AM OFFICE MACHINE MECHANIC Narrative [facility] - 07/29/2024 12:13 PM OFFICE MACHINE MECHANIC This lab is being obtained as part of a Kidney transplant evaluation, is time sensitive, and should only be drawn during the evaluation visit at [address] Lab[address] Jossie King MD LAB MICROBIOLOGY - GENERAL ORDERABLES Final Result [facility] Department [place] [address] * (ABNORMAL) CMV, IgG Blood (07/29/2024 11:01 AM OFFICE MACHINE MECHANIC) [facility] CMV IgG Positive( A) Negative Comment: Interpretive [...] CMV infection. Blood 07/29/2024 11:0 1 AM OFFICE MACHINE MECHANIC 07/29/2024 11:33 AM OFFICE MACHINE MECHANIC Narrative [facility] - 07/29/2024 1:44 PM OFFICE MACHINE MECHANIC This lab is being obtained as part of a Kidney transplant evaluation, is time sensitive, and should only be drawn during the evaluation visit at [facility] Lab. Jossie King MD LAB MICROBIOLOGY - GENERAL ORDERABLES Final Result [facility] Department [place] [address] * HLA Antibody Screen - SAB (Class I and Class II) (07/29/2024 11:01 AM OFFICE MACHINE MECHANIC) Class I Treatment EDTA [facility] Class I [...] DR52 [facility] Blood 07/29/2024 11:0 1 AM OFFICE MACHINE MECHANIC 08/02/2024 9:46 AM OFFICE MACHINE MECHANIC Narrative [facility] - 08/02/2024 9:46 AM OFFICE MACHINE MECHANIC Single-antigen HLA antibody screen is performed on serum samples using a method developed and validated by the [facility] HLA laboratory based on an FDA-approved IVD kit (LABScreen Single-Antigen, [employer], [place], [place]). All patient serum samples are pretreated with EDTA before the screen to prevent complement interference. Additional serum treatments, such as adsorption and DTT treatment, may be performed as indicated. ??Interpretive comments: Low risk: MFI [id number]. Moderate risk: MFI [id number]. Increased risk: MFI >/= 5000. The presence [...] antigens to avoid. Testing performed at the [facility], [address] [place] [address], 5th floor, [place], [address]. IA # [id number]. Dorothy Meade, Ph.D., Bill Of Materials Clerk, HLA Laboratory Rell Samuels M.D., Ph.D., Risk Control Specialist, HLA Laboratory Licha Nieto, Ph.D., CLIA Risk Control Specialist, [facility] Current methodology and interpretive comments last revised on 09/15/2022. us Jossie King MD LAB BLOOD ORDERABL ES Final Result [facility] * (ABNORMAL) CBC with auto differential (07/29/2024 11:01 AM OFFICE MACHINE MECHANIC) [facility] WBC 5.1 3.8 - 9.9 K/cumm Hgb 11.5(L) 13.0 - 17.5 g/dL [facility] Hct 34.4(L) 38.9 - 50.3 % [facility] Plt 208 150 - 400 K/cumm [facility] MPV 10.8 9.1 - 12.3 fL [facility] RBC 3.76(L) 4.30 - 5.80 M/cumm [facility] MCV 91.5 81.3 - 96.4 fL [facility] MCH 30.6 27.1 - 33.3 pg [facility] MCHC 33.4 32.3 - 35.7 g/dL [facility] RDW CV 14.3 11.1 - 14.9 % [facility] RDW SD 47.9 35.7 - 48.1 fL [facility] NRBC abs 0.00 0.00 - 0.01 K/cumm [facility] Blood 07/29/2024 11:0 1 AM OFFICE MACHINE MECHANIC 07/29/2024 11:34 AM OFFICE MACHINE MECHANIC Narrative [facility] - 07/29/2024 11:45 AM OFFICE MACHINE MECHANIC This lab is being obtained as part of a Kidney transplant evaluation, is time sensitive, and should only be drawn during the evaluation visit at [facility]CAM Lab. us Jossie King MD LAB BLOOD ORDERABL ES Final Result [facility] Department [place] [address] * Hepatitis C antibody Blood (07/29/2024 11:01 AM OFFICE MACHINE MECHANIC) [facility] Hep C Ab Nonreactive Nonreactive Comment:Antibodies to HCV no t detected. Does NOT exclude the possibility of recent exposure to HCV. Current interpretive data was last revised on 22 Blood 07/29/2024 11:0 1 AM OFFICE MACHINE MECHANIC 07/29/2024 11:32 AM OFFICE MACHINE MECHANIC Narrative [facility] - 07/29/2024 12:47 PM OFFICE MACHINE MECHANIC This lab is being obtained as part of a Kidney transplant evaluation, is time sensitive, and should only be drawn during the evaluation visit at [address] Jossie King MD LAB MICROBIOLOGY - GENERAL ORDERABLES Final Result Performing Organization Address [facility] Co de Phone Number [facility] [place] [address] * (ABNORMAL) Madiha-Morris virus (EBV) antibody panel Blood (07/29/2024 11:01 AM OFFICE MACHINE MECHANIC) [facility] EBV nuclear Ab Positive(A) Negative Comment:Indicates the presen ce of detectable IgG antibody to EBV Nuclear Antigen. EBV VCA IgG Positive(A) Negative [facility] Comment:Indicates the presen ce of antibody; 90% of the adult population will have been infected with EBV sometime in the past. EBV VCA IgM Negative Negative [facility] Comment:No detectable IgM an tibody to EBV-VCA. A negative result indicates no current infection with EBV. If clinical suspicion of acute EBV infection is present, testing should be repeated after one week. EBV interp Past Infection [facility] Blood 07/29/2024 11:0 1 AM OFFICE MACHINE MECHANIC 07/29/2024 11:33 AM OFFICE MACHINE MECHANIC Narrative [facility] - 07/29/2024 1:43 PM OFFICE MACHINE MECHANIC This lab is being obtained as part of a Kidney transplant evaluation, is time sensitive, and should only be drawn during the evaluation visit at [address] Jossie King MD LAB MICROBIOLOGY - GENERAL ORDERABLES Final Result Performing Organization Address [facility] Co de Phone Number [facility] [place] [address] * Hepatitis B core antibody, total Blood (07/29/2024 11:01 AM OFFICE MACHINE MECHANIC) [facility] Hep B core IgG/IgM Nonreactive Nonreactive Blood 07/29/2024 11:0 1 AM OFFICE MACHINE MECHANIC 07/29/2024 11:32 AM OFFICE MACHINE MECHANIC Narrative [facility] - 07/29/2024 12:47 PM OFFICE MACHINE MECHANIC This lab is being obtained as part of a Kidney transplant evaluation, is time sensitive, and should only be drawn during the evaluation visit at [address] Jossie King MD LAB MICROBIOLOGY - GENERAL ORDERABLES Final Result Performing Organization Address [facility] de Phone Number [facility] [place] [address] * Protein, urine, random (07/29/2024 11:01 AM OFFICE MACHINE MECHANIC) Protein, ur, quant 121.2 mg/dL Comment: Interpretive Data No reference range established. Current interpretive data was last revised 2019. Urine 07/29/2024 11:0 1 AM OFFICE MACHINE MECHANIC 07/29/2024 11:32 AM OFFICE MACHINE MECHANIC Narrative [facility] 07/29/2024 12:18 PM OFFICE MACHINE MECHANIC This lab is being obtained as part of a Kidney transplant evaluation, is time sensitive, and should only be drawn during the evaluation visit at [address] Jossie King MD LAB URINE ORDERABL ES Final Result Performing Organization Address [facility] [place] [address] * Creatinine, urine, random (07/29/2024 11:01 AM OFFICE MACHINE MECHANIC) Creatinine Ur 167.1 mg/dL Comment: Interpretive Data No reference range established. Current interpretive data was last revised 2019. Urine 07/29/2024 11:0 1 AM OFFICE MACHINE MECHANIC 07/29/2024 11:32 AM OFFICE MACHINE MECHANIC Narrative [facility] 07/29/2024 12:18 PM OFFICE MACHINE MECHANIC This lab is being obtained as part of a Kidney transplant evaluation, is time sensitive, and should only be drawn during the evaluation visit at [facility] Lab. Jossie King MD LAB URINE ORDERABL ES Final Result Performing Organization Address City/[facility]/ZIP Co de Phone Number [facility] [place] [address] * HSV 2 IgG Antibody Blood (07/29/2024 11:01 AM OFFICE MACHINE MECHANIC) HSV 2 IgG Nonreactive Nonreactive Comment: Interpretive Data 1. Nonreactive: No detectable IgG antibody to HSV-2. 2. Equivocal: Presence or absence of detectable antibodies to HSV-2 cannot be determined and the test should be repeated. 3. Reactive: Indicates presence of detectable IgG antibody to HSV-2. Current interpretive data was last revised on 2022. Blood 07/29/2024 11:0 1 AM OFFICE MACHINE MECHANIC 07/29/2024 11:33 AM OFFICE MACHINE MECHANIC Narrative [facility] - 07/29/2024 1:44 PM OFFICE MACHINE MECHANIC This lab is being obtained as part of a Kidney transplant evaluation, is time sensitive, and should only be drawn during the evaluation visit at [address] Lab. Jossie King MD LAB MICROBIOLOGY - GENERAL ORDERABLES Final Result Performing Organization Address [facility] Co de Phone Number [facility] Department [place] [address] * (ABNORMAL) HSV 1 IgG Antibody Blood (07/29/2024 11:01 AM OFFICE MACHINE MECHANIC) Pathologist [facility] HSV 1 IgG Reactive( A) Nonreactive Comment: Interpretive Data 1. Nonreactive: No detectable IgG antibody to HSV-1. 2. Equivocal: Presence or absence of detectable antibodies to HSV-1 cannot be determined and the test should be repeated. 3. Reactive: Indicates presence of detectable IgG antibody to HSV-1. Current interpretive data was last revised on 2016. Blood 07/29/2024 11:0 1 AM OFFICE MACHINE MECHANIC 07/29/2024 11:33 AM OFFICE MACHINE MECHANIC [facility] - 07/29/2024 1:44 PM OFFICE MACHINE MECHANIC This lab is being obtained as part of a Kidney transplant evaluation, is time sensitive, and should only be drawn during the evaluation visit at [address] Jossie King MD LAB MICROBIOLOGY - GENERAL ORDERABLES Final Result Performing Organization Address City/[facility] Co de Phone Number [facility] [place] [address] * RPR Blood (07/29/2024 11:01 AM OFFICE MACHINE MECHANIC) RPR Nonreactive Nonreactive Blood 07/29/2024 11:0 1 AM OFFICE MACHINE MECHANIC 07/29/2024 11:33 AM OFFICE MACHINE MECHANIC Narrative [facility] - 07/29/2024 12:34 PM OFFICE MACHINE MECHANIC This lab is being obtained as part of a Kidney transplant evaluation, is time sensitive, and should only be drawn during the evaluation visit at [address] Result [facility] Jossie King MD LAB MICROBIOLOGY - GENERAL ORDERABLES Final Result Performing Organization Address [facility] de Phone Number [facility] Department [place] [address] * Hepatitis B surface antibody (immune status) Blood (07/29/2024 11:01 AM OFFICE MACHINE MECHANIC) Pathologist [facility] HBsAb (immune status) Reactive Comment:This result is consi stent with immunity to Hepatitis B Virus when used in the setting of routine screening. Current interpretive data was last revised on 22 Blood 07/29/2024 11:0 1 AM OFFICE MACHINE MECHANIC 07/29/2024 11:32 AM OFFICE MACHINE MECHANIC Narrative [facility] - 07/29/2024 12:47 PM OFFICE MACHINE MECHANIC This lab is being obtained as part of a Kidney transplant evaluation, is time sensitive, and should only be drawn during the evaluation visit at [address] Josise King MD LAB MICROBIOLOGY - GENERAL ORDERABLES Final Result Performing Organization Address City/[facility] Co de Phone Number [facility] Department [place] [address] * Hepatitis B Surface Antigen Blood (07/29/2024 11:01 AM OFFICE MACHINE MECHANIC) [facility] HepBsAg Nonreactive Nonreactive Blood 07/29/2024 11:0 1 AM OFFICE MACHINE MECHANIC 07/29/2024 11:32 AM OFFICE MACHINE MECHANIC Narrative [facility] - 07/29/2024 12:47 PM OFFICE MACHINE MECHANIC This lab is being obtained as part of a Kidney transplant evaluation, is time sensitive, and should only be drawn during the evaluation visit at [address] Lab. Jossie King MD LAB MICROBIOLOGY - GENERAL ORDERABLES Final Result Performing Organization Address [facility] [place] [address] * (ABNORMAL) aPTT (07/29/2024 11:01 AM OFFICE MACHINE MECHANIC) [facility] aPTT 61(H) 28 - 38 sec Comment: Interpretive Data Heparin therapeutic range: 66.0 - 100.0 seconds. Range based on correlation with therapeutic heparin activity range of 0.3 - 0.7 Units/mL. Current interpretive data was last revised on 2023. Blood 07/29/2024 11:0 1 AM OFFICE MACHINE MECHANIC 07/29/2024 11:32 AM OFFICE MACHINE MECHANIC Narrative [facility] - 07/29/2024 11:42 AM OFFICE MACHINE MECHANIC This lab is being obtained as part of a Kidney transplant evaluation, is time sensitive, and should only be drawn during the evaluation visit at [address] Lab. Jossie King MD LAB BLOOD ORDERABL ES Final Result Performing Organization Address City/[facility]/ZIP Co de Phone Number [facility] [place] [address] * (ABNORMAL) Protime-INR (07/29/2024 11:01 AM OFFICE MACHINE MECHANIC) [facility] PT 50.6(H) 9.7 - 13.0 sec INR 4.54(H) 0.90 - 1.20 [facility] Comment: Interpretive data Oral anticoagulant therapeutic ranges: Venous thromboembolism prophylaxis or treatment: 2.0-3.0 CARDIOLOGY Standard range: 2.0-3.0 High-intensity range: 2.5-3.5 Refer to indication-specific guidelines for appropriate target ranges for prosthetic heart valve replacement. Current interpretive data was last revised on 2019. Blood 07/29/2024 11:0 1 AM OFFICE MACHINE MECHANIC 07/29/2024 11:32 AM OFFICE MACHINE MECHANIC Narrative [facility] - 07/29/2024 11:42 AM OFFICE MACHINE MECHANIC This lab is being obtained as part of a Kidney transplant evaluation, is time sensitive, and should only be drawn during the evaluation visit at [address] Lab. Jossie King MD LAB BLOOD ORDERABL ES Final Result Performing Organization Address [facility] de Phone Number [facility] [place] [address] * Varicella Zoster IgG antibody Blood (07/29/2024 11:01 AM OFFICE MACHINE MECHANIC) [facility] VZV IgG Reactive Reactive Comment:Reactive: Results diego ggest response to immunization or prior exposure to the virus. Blood 07/29/2024 11:0 1 AM OFFICE MACHINE MECHANIC 07/29/2024 11:33 AM OFFICE MACHINE MECHANIC Narrative [facility] 07/29/2024 1:45 PM OFFICE MACHINE MECHANIC This lab is being obtained as part of a Kidney transplant evaluation, is time sensitive, and should only be drawn during the evaluation visit at [address]. Jossie King MD LAB MICROBIOLOGY - GENERAL ORDERABLES Final Result Performing Organization Address [facility] Co de Phone Number [facility] Department [place] [address] * (ABNORMAL) Uric acid (07/29/2024 11:01 AM OFFICE MACHINE MECHANIC) [facility] Uric acid 2.0(L) 3.0 - 8.0 mg/dL Blood 07/29/2024 11:0 1 AM OFFICE MACHINE MECHANIC 07/29/2024 11:33 AM OFFICE MACHINE MECHANIC Narrative [facility] - 07/29/2024 12:10 PM OFFICE MACHINE MECHANIC This lab is being obtained as part of a Kidney transplant evaluation, is time sensitive, and should only be drawn during the evaluation visit at [address] Jossie King MD LAB BLOOD ORDERABL ES Final Result Performing Organization Address [facility] de Phone Number [facility] [place] [address] * (ABNORMAL) Phosphorus (07/29/2024 11:01 AM OFFICE MACHINE MECHANIC) [facility] Phosphorus, pl 5.1(H) 2.3 - 4.5 mg/dL Blood 07/29/2024 11:0 1 AM OFFICE MACHINE MECHANIC 07/29/2024 11:33 AM OFFICE MACHINE MECHANIC Narrative [facility] 07/29/2024 12:10 PM OFFICE MACHINE MECHANIC This lab is being obtained as part of a Kidney transplant evaluation, is time sensitive, and should only be drawn during the evaluation visit at [address]. Jossie King MD LAB BLOOD ORDERABL ES Final Result Performing Organization Address [facility] de Phone Number [facility] Department [place] [address] * (ABNORMAL) PTH (07/29/2024 11:01 AM OFFICE MACHINE MECHANIC) [facility] PTH 444(H) 15 - 65 pg/mL Blood 07/29/2024 11:0 1 AM OFFICE MACHINE MECHANIC 07/29/2024 11:34 AM OFFICE MACHINE MECHANIC Narrative [facility] - 07/29/2024 12:02 PM OFFICE MACHINE MECHANIC This lab is being obtained as part of a Kidney transplant evaluation, is time sensitive, and should only be drawn during the evaluation visit at [address]. Result [facility] Jossie King MD LAB BLOOD ORDERABL ES Final Result Performing Organization Address [facility] Co de Phone Number [facility] [place] [address] * (ABNORMAL) Hemoglobin A1c (07/29/2024 11:01 AM OFFICE MACHINE MECHANIC) Pathologist [facility] Hgb A1C 9.0(H) 4.0 - 5.6 % Estimated Average Glucose 212 mg/dL [facility] Comment: The ADA recommends reporting an estimated Average Glucose (eAG) with all Hemoglobin A1c results using the equation derived from a study of 507 normal and diabetic adults. ??Minority populations were underrepresented and children were not included. ?? (Diabetes Care 2020; 43(S1): S66-S76). ??The eAG is not equivalent to a fasting glucose. Blood 07/29/2024 11:0 1 AM OFFICE MACHINE MECHANIC 07/29/2024 11:34 AM OFFICE MACHINE MECHANIC Narrative [facility] - 07/29/2024 11:53 AM OFFICE MACHINE MECHANIC This lab is being obtained as part of a Kidney transplant evaluation, is time sensitive, and should only be drawn during the evaluation visit at [address]. Result [facility] Jossie King MD LAB BLOOD ORDERABL ES Final Result Performing Organization Address [facility] de Phone Number [facility] [place] [address] * Gamma GT (07/29/2024 11:01 AM OFFICE MACHINE MECHANIC) Pathologist [facility] GGT 22 10 - 50 Units/L Blood 07/29/2024 11:0 1 AM OFFICE MACHINE MECHANIC 07/29/2024 11:33 AM OFFICE MACHINE MECHANIC Narrative [facility] - 07/29/2024 12:40 PM OFFICE MACHINE MECHANIC This lab is being obtained as part of a Kidney transplant evaluation, is time sensitive, and should only be drawn during the evaluation visit at [address] Jossie King MD LAB BLOOD ORDERABL ES Final Result Performing Organization Address [facility] [place] [address] * (ABNORMAL) Ferritin (07/29/2024 11:01 AM OFFICE MACHINE MECHANIC) Pathologist [facility] Ferritin 761(H) 30 - 400 ng/mL Blood 07/29/2024 11:0 1 AM OFFICE MACHINE MECHANIC 07/29/2024 11:33 AM OFFICE MACHINE MECHANIC Narrative [facility] - 07/29/2024 12:10 PM OFFICE MACHINE MECHANIC This lab is being obtained as part of a Kidney transplant evaluation, is time sensitive, and should only be drawn during the evaluation visit at [facility] Lab. Jossie King MD LAB BLOOD ORDERABL ES Final Result Performing Organization Address [facility] de Phone Number [facility] [place] [address] * (ABNORMAL) Lipid panel (07/29/2024 11:01 AM OFFICE MACHINE MECHANIC) Pathologist [facility] Cholesterol 114 30 - 199 mg/dL Comment: [...] revised on 2018. Triglycerides 66 <=149 mg/dL [facility] Comment: Interpretive Data Ages < or = [...] revised on 2018. HDL 29(L) >=40 mg/dL [facility] Comment: Interpretive Data Ages < or = [...] 2018. LDL, calculated 71 <=129 mg/dL [facility] Comment: Interpretive Data Ages < or = 19 years ??Acceptable: ? <110 mg/dL ??Borderline high: ??110-129 mg/dL ??High: ?>or= 130 mg/dL Ages > or = 20 years ??Optimal: ? <100 mg/dL ??Near optimal: ?100-129 mg/dL ??Borderline high: ?? 130-159 mg/dL ??High: ?>160 mg/dL Calculated using the Jose LDL-C estimating equation. This equation was implemented on 2024. Prior to this date LDL-C was estimated using the Friedewald equation. Literature References: 1. Expert Panel on Integrated Guidelines for Cardiovascular Health and Risk Reduction in Children and Adolescents. Pediatrics 2011;128:S213 2. NCEP Expert Panel. Circulation 2004;110:227 3. Jose Gonzalez et al. TYRONE Cardiol. 2020 December 19;5(5):540-548. doi: 10.1001/jamacardio.2020.0013 Current Interpretive Data was last revised on 2024. Non-HDL Cholesterol 85 mg/dL [facility] Comment: Interpretive Data Ages < or = [...] last revised on 2018. Chol/HDL ratio 4 [facility] Blood 07/29/2024 11:0 1 AM OFFICE MACHINE MECHANIC 07/29/2024 11:33 AM OFFICE MACHINE MECHANIC Narrative [facility] - 07/29/2024 12:10 PM OFFICE MACHINE MECHANIC This lab is being obtained as part of a Kidney transplant evaluation, is time sensitive, and should only be drawn during the evaluation visit at [facility]. us Jossie King MD LAB BLOOD ORDERABL ES Final Result [facility] Department [place] [address] * (ABNORMAL) Comprehensive metabolic panel (07/29/2024 11:01 AM OFFICE MACHINE MECHANIC) Sodium 136 135 - 145 mmol/L Potassium, pl 4.6 3.3 - 4.9 mmol/L [facility] Chloride 93(L) 97 - 110 mmol/L [facility] CO2 26 22 - 32 mmol/L [facility] Anion gap 17(H) 2 - 15 mmol/L [facility] BUN 65(H) 6 - 25 mg/dL [facility] Creatinine 8.07(H) 0.80 - 1.30 mg/dL [facility] Glucose 280(H) 70 - 199 mg/dL [facility] Comment: Interpretive Data Fasting glucose >/= 126 [...] 2022. Calcium 9.4 8.5 - 10.3 mg/dL [facility] Bilirubin, total 0.3 0.1 - 1.2 mg/dL [facility] Protein, pl 7.2 6.5 - 8.5 g/dL [facility] Albumin 3.8 3.5 - 5.0 g/dL [facility] Alk phos 99 40 - 130 Units/L [facility] ALT 30 7 - 55 Units/L [facility] AST 31 10 - 50 Units/L [facility] Blood 07/29/2024 11:0 1 AM OFFICE MACHINE MECHANIC 07/29/2024 11:33 AM OFFICE MACHINE MECHANIC Narrative [facility] - 07/29/2024 12:10 PM OFFICE MACHINE MECHANIC This lab is being obtained as part of a Kidney transplant evaluation, is time sensitive, and should only be drawn during the evaluation visit at [facility]. Jossie King MD LAB BLOOD ORDERABL ES Final Result Performing Organization Address City/[facility]/ZIP Co de Phone Number ALESSANDRA CARRION [facility] Department [place] [address] * (ABNORMAL) Oxalate (oxalic acid) (07/29/2024 10:53 AM OFFICE MACHINE MECHANIC) Oxalate 12.3(H) <=2.0 mcmol/L [facility] Comment: High value suggestive of Primary Hyperoxaluria. However, if the patient has chronic kidney disease (GFR<30 mL/min/1.73m2), plasma oxalate values up to 30 mcmol/L can be normal. The [facility]oxaluria [facility] is available to review case details and answer any questions regarding interpretation ([email or web address] [phone]) ADDITIONAL INFORMATION This test has been modified from the manager community development's instructions. Its performance characteristics were determined by [facility] in a manner consistent with CLIA requirements. This test has not been cleared or approved by the U.S. Food and Drug Administration. Test Performed by: [facility] [address] [address] Manager Rental: Jairo Higgins Ph.D.; CLIA# [id number] Blood 07/29/2024 10:5 3 AM OFFICE MACHINE MECHANIC 07/29/2024 11:37 AM OFFICE MACHINE MECHANIC us Jossie King MD LAB BLOOD ORDERABL ES Final Result [facility] CARR[facility] Department [place] [address] [place] [facility] * (ABNORMAL) Urinalysis reflex to microscopic (07/29/2024 10:53 AM OFFICE MACHINE MECHANIC) Color, ur Yellow Yellow Clarity, ur Cloudy(A) Clear [facility] Specific gravity, ur 1.022 1.003 - 1.030 [facility] pH, urine 6.0 [facility] Comment: Interpretive Data ? Urine pH is affected by diet, medications, systemic acid-base disturbances, and renal tubular function. ??pH may affect urinary stone formation. ??For example, urine pH below 6.0 may help reduce the tendency for calcium phosphate stones and pH greater than 6.0 may reduce the tendency for uric acid stone formation. Source: [facility] Current Interpretive Data was last revised on 2017 Protein, ur ql 2+(A) Negative [facility] Glucose, ur ql 4+(A) Negative [facility] Ketones, ur Negative Negative [facility] Bilirubin, ur Negative Negative [facility] Blood, ur 3+(A) Negative [facility] Urobilinogen, ur <2.0 <2.0 mg/dL [facility] Nitrite, ur Negative Negative [facility] Leukocyte esterase, ur 2+(A) Negative [facility] UA reflex comment Reflex to microscopic UA will be performed. [facility] Urine 07/29/2024 10:5 3 AM OFFICE MACHINE MECHANIC 07/29/2024 11:27 AM OFFICE MACHINE MECHANIC Narrative [facility] - 07/29/2024 11:29 AM OFFICE MACHINE MECHANIC This lab is being obtained as part of a Kidney transplant evaluation, is time sensitive, and should only be drawn during the evaluation visit at [facility]. us Jossie King MD LAB URINE ORDERABL ES Final Result [facility] Department [place] [address] * (ABNORMAL) Urinalysis, microscopic only (07/29/2024 10:53 AM OFFICE MACHINE MECHANIC) WBC, ur 21-50(A) 0 - 5 /HPF RBC, ur >50(A) 0 - 2 /HPF [facility] Epithelial cells, squamous, ur 1-5 0 - 5 /HPF [facility] Bacteria, ur Trace(A) [facility] Mucous, ur Present(A) [facility] Hyaline casts, ur 1-5 0 - 10 /LPF [facility] Urine 07/29/2024 10:5 3 AM OFFICE MACHINE MECHANIC 07/29/2024 11:27 AM OFFICE MACHINE MECHANIC us Jossie King MD LAB URINE ORDERABL ES Final Result Performing Organization Address City/[facility]/ZIP Co de Phone Number [facility] Department [place] [address] * Cardiology Document Scan (06/07/2024 11:10 AM CDT) Anatomical Region Laterality Modality Other us Karen Barnes NP CV CARDIAC SERVICES PROCEDUR ES Final Result * (ABNORMAL) TSH (10/27/2023 2:30 AM OFFICE MACHINE MECHANIC) Thyroid Stimulating Hormone 13.20(H) 0.30 - 4.20 mcIUnit/mL Blood 10/27/2023 2:30 AM OFFICE MACHINE MECHANIC 10/27/2023 2:42 AM OFFICE MACHINE MECHANIC us Lorne Mcnulty MD LAB BLOOD ORDERABLES Final Result [facility] [address] Department [place] [address] from Last 3 Months or Most Recently Relevant to Health Maintenance
--- OUTSIDE RECORDS SUMMARY | 2024-08-18 13:03 | XMS_ITS | Referral Summary ---
Author Organization [facility] Address [address] [place] [address] Care Team Providers Care Electric Spot Welder Name Role Phone Aditya Castro MD Primary Care Provider [phone] Alondra Lambert RN Unavailable [phone] Shannon Brock MD, Ham[place] P. Unavailable [phone] Leandro Reyes MD Unavailable [phone] Encounters Date Type Department Care Team Description 08/06/2024 Documentation [facility] Transplant Kidney [address] [facility] [address] [place] [address] [phone] [place] [address] Alondra Lambert RN 07/30/2024 Telephone [facility] Transplant Kidney [address] [facility] [address] [place], [place] [address]op [phone] [place] [address] Alondra Lambert RN 07/29/2024 10:55 AM JOURNEYMAN APPRENTICE ELECTRICIANS - 07/29/2024 11:59 PM JOURNEYMAN APPRENTICE ELECTRICIANS Hospital Encounter [facility] [address] [place] [address] End stage renal disease (CMS/HCC) (HCC) Discharge Disposition: Discharge to home or self care 07/29/2024 10:53 AM JOURNEYMAN APPRENTICE ELECTRICIANS - 07/29/2024 11:59 PM JOURNEYMAN APPRENTICE ELECTRICIANS Hospital Encounter [facility] [address] [place] [address] End stage renal disease (CMS/HCC) ([facility]) Discharge Disposition: Discharge to home or self care 07/29/2024 1:15 PM JOURNEYMAN APPRENTICE ELECTRICIANS Lab [facility] [address] [place] [address] End stage renal disease (CMS/HCC) (HCC); ESRD (end stage renal disease) (CMS/HCC) (HCC) 07/29/2024 Telephone [facility] Transplant Kidney [address] [facility] [address] Mailstop [phone] [place] [address] Alondra Lambert RN 07/29/2024 10:58 AM JOURNEYMAN APPRENTICE ELECTRICIANS - 07/29/2024 11:59 PM JOURNEYMAN APPRENTICE ELECTRICIANS Hospital Encounter [facility] [address] [place] [address] End stage renal disease ([facility]) ([facility]) Discharge Disposition: Discharge to home or self care 07/29/2024 9:00 AM JOURNEYMAN APPRENTICE ELECTRICIANS Social Work [facility] and [facility] [address] [facility] Advance Medicine, 8th Floor, [place] [address] 07/29/2024 11:02 AM JOURNEYMAN APPRENTICE ELECTRICIANS - 07/29/2024 11:59 PM JOURNEYMAN APPRENTICE ELECTRICIANS Hospital Encounter [facility] Pulmonary Rehabilitiation Program [address] [facility] [address] [place] [address] Discharge Disposition: Discharge to home or self care 07/29/2024 1:00 PM JOURNEYMAN APPRENTICE ELECTRICIANS Office Visit [facility] Nephrology [address] [facility] Advanced Medicine 5th [place] [address] [place] [phone] Radha Bartholomew MD Pre-transplant evaluation for kidney transplant (Primary Dx); End stage renal disease (CMS/HCC) ([facility]); Status post coronary artery bypass grafting; Status post aortic valve replacement; Type 1 diabetes mellitus with chronic kidney disease on chronic dialysis (CMS/HCC) ([facility]); CAD in [place] artery; Paroxysmal atrial fibrillation (CMS/HCC) (HCC) 07/26/2024 Telephone [facility] Transplant Kidney [address] [facility] [address] Mailstop [phone] [place] [address] Elsie Cornejo 07/26/2024 Orders Only [facility] Transplant Kidney [address] [facility] [address] Mailstop [phone] [place] [address] Alondra Lambert, RN ESRD (end stage renal disease) (CMS/HCC) (HCC) (Primary Dx) 07/26/2024 Telephone [facility] Transplant Kidney [address] [facility] [address] Mailstop [phone] [place] [address] Alondra Lambert RN 07/22/2024 Telephone [facility] Transplant Kidney [address] [facility] [address] Mailstop [phone] [place] [address] Chris Richard 06/28/2024 Telephone [facility] Transplant Kidney [address] [facility] [address] Mailstop [phone] [place] [address] Chris Richard 06/24/2024 Telephone [facility] Transplant Kidney [address] [facility] [address] Mailstop [phone] [place] [address] Chris Richard 06/11/2024 Orders Only [facility] Cardiology [address] [place] [address] Karen Barnes NP 06/06/2024 Documentation [facility] Transplant Kidney [address] [facility] [address] Mailstop [phone] [place] [address] Melany Kelly from Last 3 Months Allergies Active Allergy Reactions Criticality Noted Date [...] PUMP: Continue Omnipod 5 insulin pump with Teknovus G6 CGM at home settings: TIME BASAL [...] 1 tablet (25 mcg total) by mouth early breastfeeding care specialist before breakfast 30 tablet 1 11/04/19 24 [...] mg SL tablet 12/28/19 18 Active peg 638-ldvjdljqyizs-da ycerin (ARTIFICAL TEARS) 1-0.2-0.2 % ophthalmic solution 1 drop 4 (four) times a day 07/07/20 22 Active potassium chloride ER 20 mEq CR tablet Active Active Problems Problem Noted Date Diagnosed Date End stage renal disease ([facility]) 07/29/2024 Nonrheumatic aortic valve stenosis 11/22/2023 Status post aortic valve replacement 11/22/2023 Status post coronary artery bypass grafting 10/2023 CAD in [place] artery 10/13/2023 Anemia 06/22/2022 Assessment & Plan (06/29/2022 10:12 AM JOURNEYMAN APPRENTICE ELECTRICIANS): Stable, likely 2/2 anemia from ESRD, no [...] trend Hb. ESRD (end stage renal disease) ([facility]) 022 Assessment & Plan (06/29/2022 10:12 AM JOURNEYMAN APPRENTICE ELECTRICIANS): - Renal consulted, s/p CRRT in the ICU now back on PD. Tolerated well and nephrology following - Trialysis catheter removed - Continue vitamins for renal bone mineral disease. Assessment & Plan (06/28/2022 3:29 PM JOURNEYMAN APPRENTICE ELECTRICIANS): - Renal consulted, s/p CRRT in the [...] 06/22/2022 Assessment & Plan (06/29/2022 10:12 AM JOURNEYMAN APPRENTICE ELECTRICIANS): C/b cardiogenic shock requiring impella in the setting of cath and AHRF 2/2 pulmonary edema, now resolved. TTE demonstrating recovered EF 65% with grade I diastolic dysfunction. - metop as above - continue low dose losartan 12.5mg daily, ok per nephro. Tolerating well - volume management per PD Assessment & Plan (06/28/2022 3:29 PM JOURNEYMAN APPRENTICE ELECTRICIANS): C/b cardiogenic shock requiring impella in the [...] tartrate, start GDMT per cardiology. Atrial fibrillation ([facility]) 06/22/2022 Assessment & Plan (06/29/2022 10:12 AM JOURNEYMAN APPRENTICE ELECTRICIANS): Converted to NSR overnight on 06/24. CHADsVASc of 4 not on anticoagulation prior to admission. - cardiology consulted - recommended ongoing rate control - holding off on a/c with high risk for bleeding while on DAPT - reduced metop to 25mg BID in the setting of hypotension, HR 70s NSR Assessment & Plan (06/28/2022 3:30 PM JOURNEYMAN APPRENTICE ELECTRICIANS): Converted to NSR overnight on 06/24. CHADsVASc [...] AC. NSTEMI (non-ST elevated myocardial infarction) ( [facility]) 06/22/2022 Assessment & Plan (06/29/2022 10:11 AM JOURNEYMAN APPRENTICE ELECTRICIANS): With recurrent chest pain post-cath. He has [...] today Assessment & Plan (06/28/2022 3:30 PM JOURNEYMAN APPRENTICE ELECTRICIANS): With recurrent chest pain post-cath. He has [...] 06/22/2022 Assessment & Plan (06/29/2022 10:11 AM JOURNEYMAN APPRENTICE ELECTRICIANS): Secondary to NSTEMI, s/p Impella since removed on 06/10. Resolved. Assessment & Plan (06/23/2022 4:55 PM CDT): Secondary to NSTEMI, s/p Impella since removed on 06/10. Resolved. Assessment & Plan (06/22/2022 8:22 PM CDT): -Secondary to NSTEMI, s/p Impella since removed on 06/10. Acute hypoxemic respiratory failure 06/09/2022 Assessment & Plan (06/29/2022 10:12 AM JOURNEYMAN APPRENTICE ELECTRICIANS): Secondary to ACS and flash pulmonary edema, [...] (06/10/2022): Added automatically from request for surgery [id number] Abnormal cardiovascular stress test 12/29/2020 Overview (12/29/2020): Added automatically from request for surgery [id number] 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n ative artery of [place] heart with stable angina pectoris ([facility]) 05/23/2017 History of coronary artery stent placement 05/23 Macular ischemia 03/17/2017 Combined forms of age-related cataract 7 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 03/17/2017 Type 2 diabetes mellitus treated with insulin (C MS/HCC) 03/25/2015 Overview (11/25/2016): Insulin treated Type II diabetes mellitus Chronic kidney disease, stage III (moderate) 12/2014 Overview (11/25/2016): Chronic kidney disease, stage 3 Benign essential hypertension 03/25/2015 Overview (11/25/2016): Benign essential HTN Hyperlipidemia 03/25/2015 Overview (11/25/2016): Hyperlipidemia Pain of finger 11/24/2014 Hypersomnia 11/22/2013 Chronic kidney disease 11/22/2013 Hypertension 01/18/2013 Type 1 diabetes mellitus 01/18/2013 Assessment & Plan (06/29/2022 10:12 AM JOURNEYMAN APPRENTICE ELECTRICIANS): A1c well controlled on admission. He uses [...] RATE?TOTAL BASAL DAILY DOSE:??65.85 0330?1.7??units/hour 0800?0.8 units/hour 2000?5.8 units/hour ?? ICR: ??1:6.5 SENSITIVITY: ??1:25 IAT: ??4 hours TARGET: ??120 ?? If pump fails, give lispro 4 units once and restart insulin pump. If pump supplies are not available: -??Lantus 35 units qAM - Humalog 10 units with meals - Continue resistant correction scale TID/HS/0200 -??NPH 45 units with start of peritoneal dialysis session Assessment & Plan (06/28/2022 3:28 PM JOURNEYMAN APPRENTICE ELECTRICIANS): A1c well controlled on admission. He uses [...] materials from doctor or pharmacy Never 12/01/2023 [facility] Utilities Answer Date Recorded In the past 12 months has webme, gas, oil, or water [employer] threatened to shut off services in your home? No 08/01/2024 Social Connection and Isolation Panel [NHANES] A nswer Date Recorded In a typical week, how many times do you talk on the phone with family, friends, or neighbors? Twice a week 08/01/2024 How often do you get together with friends or re latives? Once a week 08/01/2024 How often do you attend orthodox or pentecostal serv ices? Never 08/01/2024 Do you belong to any clubs o r organizations such as orthodox groups, unions, fraternal or athletic groups, or [...] place to sleep or slept in a mcfp (including now)? No 10/16/2023 Housing Stability Vital Sign Answer Rubens e Recorded In the last 12 months, was t here a time when you were not able to pay the mortgage or rent on time? No 08/01/2024 In the past 12 months, how m any times have you moved where you were living? 1 08/01/2024 At any time in the past 12 m [facility], were you homeless or living in a mcfp (including now)? No 08/01/2024 Personal Safety Answer Date Recorded Have you ever been in or are you currently in a harmful physical or emotional relationship or is someone making you feel afraid or unsafe? 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 Male 3:42 AM JOURNEYMAN APPRENTICE ELECTRICIANS Gender Identity Not on file Sexual Orientation Not on file Last Filed Vital Signs Vital Sign Reading Time Taken Comments Blood Pressure 122/75 07/29/2024 1:00 PM JOURNEYMAN APPRENTICE ELECTRICIANS Pulse 116 07/29/2024 1:00 PM JOURNEYMAN APPRENTICE ELECTRICIANS Temperature 36.8 ??C (98.2 ??F) 07/29/2024 1:00 PM CS T Respiratory Rate 16 12/01/2023 11:1 3 AM CDT Oxygen Saturation 96% 12/01/2023 11: 13 AM CDT Inhaled Oxygen Concentration - - Weight 121.2 kg (267 lb 1.6 oz) 07/29/2024 1:00 PM JOURNEYMAN APPRENTICE ELECTRICIANS Height 177.8 cm (5' 10 ) 07/29/2024 1:00 PM JOURNEYMAN APPRENTICE ELECTRICIANS Body Mass Index 38.32 07/29/2024 1:00 PM JOURNEYMAN APPRENTICE ELECTRICIANS Plan of Treatment Not on file Medical Devices Implanted Type Area Vp Of Technology Device Identifier Shelf Expiration Date Model / Serial / Lot Kyle Vascular Device Clsr Perclose Prostyle Sut-Mediatd Closure-Repair Sys 62431-01 - [id number] Implanted:Qty: 1 on 06/10/2022 by Champ Osborne MD PhD at [facility] Other - see comments Right: Femoral [employer] 01/19/2024 [id number] / / [id number] [employer] Mary Synergy Xd Monorail 2.5mm 48mm 144cm Delivery System 1 Access [id number] - [id number] Implanted:Qty: 1 on 06/07/2022 by Champ Osborne MD PhD at [facility] Stent [employer] Mary 10/27/2023 [id number] / / [id number] [employer] Mary Synergy Xd Monorail 3mm 24mm 144cm Delivery System 1 Access Port [id number] - [id number] Implanted:Qty: 1 on 06/07/2022 by Champ Osborne MD PhD at [facility] Stent [employer] Mary 07/28/2023 [id number] / / [id number] [employer] Mary Synergy Xd Monorail 2.5mm 12mm 144cm Delivery System 1 Access [id number] - [id number] - [id number] Implanted:Qty: 1 on 06/07/2022 by Champ Osborne MD PhD at [facility] Stent [employer] Mary 05/03/2023 [id number] / [id number] / [id number] [facility] Mary [id number] Device Closure Angio-Seal Vip Bondek-Plus Polyglyd L70 Cm Od6 Fr Odsec.035 In Vascular - [id number] Implanted:Qty: 1 on 01/21/2021 by Hamlet Ortega Jr., MD at [facility] Left: Groin [employer] Mary [id number] / / Kyle V[employer] Device Clsr Perclose Prostyle Sut-Mediatd Closure-Repair Sys 23586-83 - [id number] Implanted:Qty: 1 on 06/07/2022 by Champ Osborne MD PhD at [facility] [employer] 01/19/202496420-61 / [id number] [employer] Device Clsr Perclose Prostyle Sut-Mediatd Closure-Repair Sys 25744-84 - [id number] Implanted:Qty: 1 on 06/07/2022 by Champ Osborne MD PhD at [facility] [employer] 11/19/202383721-05 / [id number] Bard Access [employer] Power-Trialysis 13fr 30cm 3 Lumen Kink Resistance Symmetric Tip [id number] - [id number] Implanted:Qty: 1 on 06/07/2022 by Champ Osborne MD PhD at [facility] Right: Jugular Ramirez [place] 07/20/2024 [id number] / / [id number] [employer] Impella Cp Percutaneous Left Ventricular Assist Device 2799-4276 - [id number] Implanted:Qty: 1 on 06/07/2022 by Champ Osborne MD PhD at [facility] Left: Ventricle [employer] [id number] / / Bard Access Systems Power-Trialysis 13fr 20cm 3 Lumen Short Term Dialysis Straight [id number] - [id number] Implanted:Qty: 1 on 06/18/2022 at [facility] Ramirez [place] 07/20/2024 [id number] / / [id number] Rl [employer] Screw Bone Slf Drl Full Thread Locking 3.5x14mm Ti 100.035.14 - [id number] Implanted:Qty: 6 on 10/17/2023 by Lorne Mcnulty MD at [facility] N/A: Sternum [employer] 100.035.1 4 / / Rl [employer] Plate Bone Low Profile 6 Hole H Shape Sternum Ti 115.102.06 - [id number] Implanted:Qty: 2 on 10/17/2023 by Lorne Mcnulty MD at [facility] N/A: Sternum [employer] 115.102.0 6 / / [employer]l [employer] Plate Bone Low Profile 6 Hole O Shape Sternum Ti 115.104.06 - [id number] Implanted:Qty: 1 on 10/17/2023 by Lorne Mcnulty MD at [facility] N/A: Sternum [employer] 115.104.0 6 / / On-X Intrnl Valve Coronary Aortic Mechanical On X 25mm Onxane-25 - [id number] - [id number] Implanted:Qty: 1 on 10/17/2023 by Lorne Mcnulty MD at [facility] N/A: Heart On-X Intrnl 01/22/2028 ONXANE-25 / [id number] / Rl [employer] Screw Bone Slf Drl Full Thread Locking 3.5x18mm Ti 100.035.18 - [id number] Implanted:Qty: 12 on 10/17/2023 by Lorne Mcnulty MD at [facility] N/A: Sternum [employer] 100.035.1 8 / / Explanted Type Area Vp Of Technology Device Identifier Shelf Expiration Date Model / Serial / Lot Bard Peripheral Vascular Bard .25x.25in Branch Thk1.65mm Square [employer] Ptfe [id number] - [id number] Explanted:Qty: 1 on 10/17/2023 by Lorne Mcnulty MD at [facility] N/A: Heart Bard Peripheral Vascular 05/18/2026 [id number] / / Procedures Procedure Name Priority Date/Time Associated Diagnosis Comments HLA SOLID ORGAN TYPING REPORT 08/02/2024 9:04 AM JOURNEYMAN APPRENTICE ELECTRICIANS SIX MINUTE WALK Routine 07/29/2024 2:46 PM JOURNEYMAN APPRENTICE ELECTRICIANS End stage renal disease (CMS/HCC) (HCC) CT ABDOMEN PELVIS WO CONTRAST Schedule Routine, Read Routine (OP Routine) 07/29/2024 12:43 PM JOURNEYMAN APPRENTICE ELECTRICIANS End stage renal disease (CMS/HCC) (HCC) XR ORTHOPANTOGRAM/PANOR EX Schedule Routine, Read Routine (OP Routine) 07/29/2024 11:44 AM JOURNEYMAN APPRENTICE ELECTRICIANS End stage renal disease (CMS/HCC) (HCC) TYPE AND SCREEN Routine 07/29/2024 11:23 AM JOURNEYMAN APPRENTICE ELECTRICIANS End stage renal disease (CMS/HCC) (HCC) ECG 12-LEAD Routine 07/29/2024 11:14 AM JOURNEYMAN APPRENTICE ELECTRICIANS End stage renal disease (CMS/HCC) (HCC) ABO/RH Routine 07/29/2024 11:13 AM JOURNEYMAN APPRENTICE ELECTRICIANS EGFR Routine 07/29/2024 11:01 AM JOURNEYMAN APPRENTICE ELECTRICIANS End stage renal disease (CMS/HCC) (HCC) DIFFERENTIAL AUTO Routine 07/29/2024 11: 01 AM JOURNEYMAN APPRENTICE ELECTRICIANS End stage renal disease (CMS/HCC) (HCC) CBC WITH AUTO DIFFERENTIAL Routine 07/29/2024 11:01 AM JOURNEYMAN APPRENTICE ELECTRICIANS End stage renal disease (CMS/HCC) (HCC) COMPREHENSIVE METABOLIC PANEL Routine 07/29/2024 11:01 AM JOURNEYMAN APPRENTICE ELECTRICIANS End stage renal disease (CMS/HCC) (HCC) CREATININE, URINE, RANDOM Routine 07/29/2024 11:01 AM JOURNEYMAN APPRENTICE ELECTRICIANS End stage renal disease (CMS/HCC) (HCC) FERRITIN Routine 07/29/2024 11:01 AM JOURNEYMAN APPRENTICE ELECTRICIANS End stage renal disease (CMS/HCC) (HCC) GAMMA GT Routine 07/29/2024 11:01 AM JOURNEYMAN APPRENTICE ELECTRICIANS End stage renal disease (CMS/HCC) (HCC) HEMOGLOBIN A1C Routine 07/29/2024 11:01 AM JOURNEYMAN APPRENTICE ELECTRICIANS End stage renal disease (CMS/HCC) (HCC) IRON PROFILE W/ IBC Routine 07/29/2024 1 1:01 AM JOURNEYMAN APPRENTICE ELECTRICIANS End stage renal disease (CMS/HCC) (HCC) LIPID PANEL Routine 07/29/2024 11:01 AM JOURNEYMAN APPRENTICE ELECTRICIANS End stage renal disease (CMS/HCC) (HCC) PTH Routine 07/29/2024 11:01 AM JOURNEYMAN APPRENTICE ELECTRICIANS End stage renal disease (CMS/HCC) (HCC) APTT Routine 07/29/2024 11:01 AM JOURNEYMAN APPRENTICE ELECTRICIANS End stage renal disease (CMS/HCC) (HCC) PHOSPHORUS Routine 07/29/2024 11:01 AM JOURNEYMAN APPRENTICE ELECTRICIANS End stage renal disease (CMS/HCC) (HCC) PROTEIN, URINE, RANDOM Routine 07/29/2024 11:01 AM JOURNEYMAN APPRENTICE ELECTRICIANS End stage renal disease (CMS/HCC) (HCC) PROTIME-INR Routine 07/29/2024 11:01 AM JOURNEYMAN APPRENTICE ELECTRICIANS End stage renal disease (CMS/HCC) (HCC) URIC ACID Routine 07/29/2024 11:01 AM JOURNEYMAN APPRENTICE ELECTRICIANS End stage renal disease (CMS/HCC) (HCC) PSA SCREEN Routine 07/29/2024 11:01 AM JOURNEYMAN APPRENTICE ELECTRICIANS End stage renal disease (CMS/HCC) (HCC) LR HLA TYPING (CLASS I AND CLASS II) Routine 07/29/2024 11:01 AM JOURNEYMAN APPRENTICE ELECTRICIANS End stage renal disease (CMS/HCC) (HCC) HLA CLASS I DNA (ABC) RECIPIENT Routine 07/29/2024 11:01 AM JOURNEYMAN APPRENTICE ELECTRICIANS End stage renal disease (CMS/HCC) (HCC) HLA CLASS II DNA (DR, DQ, DP) RECIPIENT Routine 07/29/2024 11:01 AM JOURNEYMAN APPRENTICE ELECTRICIANS End stage renal disease (CMS/HCC) (HCC) HLA ANTIBODY SCREEN - SAB (CLASS I AND CLASS II) Routine 07/29/2024 11:01 AM JOURNEYMAN APPRENTICE ELECTRICIANS End stage renal disease (CMS/HCC) (HCC) HLA ANTIBODY SCREEN BY SINGLE ANTIGEN Routine 07/29/2024 11:01 AM JOURNEYMAN APPRENTICE ELECTRICIANS End stage renal disease (CMS/HCC) (HCC) CMV, IGG Routine 07/29/2024 11:01 AM JOURNEYMAN APPRENTICE ELECTRICIANS End stage renal disease (CMS/HCC) (HCC) MADIHA-MORRIS VIRUS VCA ANTIBODY PANEL Routine 07/29/2024 11:01 AM JOURNEYMAN APPRENTICE ELECTRICIANS End stage renal disease (CMS/HCC) (HCC) HIV 1/2 ANTIBODY PLUS P24 ANTIGEN Routine 07/29/2024 11:01 AM JOURNEYMAN APPRENTICE ELECTRICIANS End stage renal disease (CMS/HCC) (HCC) HSV 1 ANTIBODY, IGG Routine 07/29/2024 1 1:01 AM JOURNEYMAN APPRENTICE ELECTRICIANS End stage renal disease (CMS/HCC) (HCC) HSV 2 ANTIBODY, IGG Routine 07/29/2024 1 1:01 AM JOURNEYMAN APPRENTICE ELECTRICIANS End stage renal disease (CMS/HCC) (HCC) HEPATITIS B CORE ANTIBODY, TOTAL Routine 07/29/2024 11:01 AM JOURNEYMAN APPRENTICE ELECTRICIANS End stage renal disease (CMS/HCC) (HCC) HEPATITIS B SURFACE ANTIBODY (IMMUNE STATUS) Routine 07/29/2024 11:01 AM JOURNEYMAN APPRENTICE ELECTRICIANS End stage renal disease (CMS/HCC) (HCC) HEPATITIS B SURFACE ANTIGEN Routine 07/29/2024 11:01 AM JOURNEYMAN APPRENTICE ELECTRICIANS End stage renal disease (CMS/HCC) (HCC) HEPATITIS C ANTIBODY Routine 07/29/2024 11:01 AM JOURNEYMAN APPRENTICE ELECTRICIANS End stage renal disease (CMS/HCC) (HCC) RPR Routine 07/29/2024 11:01 AM JOURNEYMAN APPRENTICE ELECTRICIANS End stage renal disease (CMS/HCC) (HCC) VARICELLA ZOSTER ANTIBODY, IGG Routine 07/29/2024 11:01 AM JOURNEYMAN APPRENTICE ELECTRICIANS End stage renal disease (CMS/HCC) (HCC) URINALYSIS, MICROSCOPIC ONLY Routine 07/29/2024 10:53 AM JOURNEYMAN APPRENTICE ELECTRICIANS End stage renal disease (CMS/HCC) (HCC) OXALATE Routine 07/29/2024 10:53 AM JOURNEYMAN APPRENTICE ELECTRICIANS ESRD (end stage renal disease) (CMS/HCC) (HCC) URINALYSIS AND REFLEX TO MICROSCOPIC Routine 07/29/2024 10:53 AM JOURNEYMAN APPRENTICE ELECTRICIANS End stage renal disease (CMS/HCC) (HCC) CARDIOLOGY DOCUMENT SCAN Routine 06/07/2024 11:10 AM CDT TSH Routine 10/27/2023 2:30 AM JOURNEYMAN APPRENTICE ELECTRICIANS from Last 3 Months or Most Recently Relevant to Health Maintenance Results * HLA Solid Organ Typing Report (08/02/2024 9:04 AM JOURNEYMAN APPRENTICE ELECTRICIANS) Jossie King MD LAB GENETIC TESTIN G Final Result * Six Minute Walk - (07/29/2024 2:46 PM JOURNEYMAN APPRENTICE ELECTRICIANS) Anatomical Region Laterality Modality PFT Narrative 07/29/2024 3:52 PM JOURNEYMAN APPRENTICE ELECTRICIANS Table formatting from the original result was not included. Davey Pickard V., OCCUPATIONAL THERAPIST AIDE on 07/29/2024 ??2:45 PM Table formatting from the original note was not included. 6 MINUTE WALK RESULTS Name: Juvenal Daigle Jr : 1970 DOS: 07/29/2024 Diagnosis: ESRD/KTE OCCUPATIONAL THERAPIST AIDE performed walk: Carmenza Pickard Rest: 1 min [...] exercise Jossie King MD RESPIRATORY CARE O RDERABLES Final Result * CT Abdomen Pelvis WO Contrast (07/29/2024 12:43 PM JOURNEYMAN APPRENTICE ELECTRICIANS) Anatomical Region Laterality Modality Body N/A Computed Tomogra phy 07/29/2024 1:04 PM JOURNEYMAN [employer] Impressions 07/29/2024 1:04 PM JOURNEYMAN [employer] 1. ??Moderate discontinuous atherosclerotic calcifications involve the [...] Teresa Rivera M.D. 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 Electronically signed by: Julio Pinedo M.D. Narrative 07/29/2024 12:59 PM JOURNEYMAN [employer] EXAMINATION: XR ORTHOPANTOGRAM/PANOREX HISTORY: Kidney Transplant Evaluation [...] * Type and screen (07/29/2024 11:23 AM JOURNEYMAN [employer]) Maribel, indirect Negative ABO Rh A Positive [facility] Blood 07/29/2024 11:2 3 AM JOURNEYMAN [employer] 07/29/2024 11:43 AM JOURNEYMAN [employer] Narrative [facility]ESSANDR[facility] - 07/29/2024 12:45 PM JOURNEYMAN [employer] Please draw the ABO and the Type and Screen as two separate blood draws with each stamped with the two different times stamps as this is a regulatory requirement for this patient to be listed for Kidney Transplant. ??This lab is being obtained as part of a Kidney transplant evaluation, is time sensitive, and should only be drawn during the evaluation visit at [facility] 3C Lab. Has the patient had Daratumumab or Isatuximab in the past 6 months?->Unknown Jossie King MD LAB BLOOD BANK ERNESTO T ORDERABLES Final Result [facility] [place] [address] * ECG 12 lead (07/29/2024 11:14 AM JOURNEYMAN [employer]) Ventricular Rate EKG/Min 117 BPM [facility] Atrial Rate 117 BPM [facility] MA-Interval (MSEC) 144 ms [facility] QRS-Interval (MSEC) 126 ms [facility] QT-Interval (MSEC) 366 ms [facility] QTc 510 ms [facility] R [place] -40 degrees [facility] T [place] 147 degrees [facility] Diagnosis Poor data quality, interpretation may be [...] [facility] 07/29/2024 11:1 4 AM JOUR[employer]MAN [employer] 07/29/2024 3:38 PM JOURNEYMAN [employer] Jossie King MD ECG ORDERABLES Fi nal Result Performing Organization Address [facility] Co de Phone Number [facility] * ABO/Rh (07/29/2024 11:13 AM JOURNEYMAN [employer]) ABO Rh A Positive Blood 07/29/2024 11:1 3 AM [employer] [employer] 07/29/2024 2:45 PM [employer]OURNEYMAN [employer] Jossie King MD LAB BLOOD BANK ERNESTO T ORDERABLES Final Result Performing Organization Address [facility] Co de Phone Number [facility] [place] [address] * LR HLA Typing (Class I and Class II) (07/29/2024 11:01 AM JOURNEYMAN [employer]PRENT[employer]) r-SSO [facility] A First Allele A*03 [facility] [...] 07/30/24 [facility] Blood 07/29/2024 11:0 1 AM [employer] 08/02/2024 9:03 AM JOURNEYMAN [employer] Narrative [facility] - 08/02/2024 9:03 AM [facility] DNA was extracted from whole blood or buccal cell specimens, and relevant genomic regions were amplified by polymerase chain reactions (PCR). HLA typing was performed on PCR amplicons using reverse sequence-specific oligonucleotide (r-SSO) and/or sequence-specific primers (SSP) based techniques. r-SSO and SSP are FDA approved as IVD tests and validated by the [facility] HLA Laboratory. Testing performed at the [facility] Laboratory, [address] [place] [address], 5th floor, [place], [address]. [facility] # [id number]. Dorothy Meade, Ph.D., Needle Valve Operator, HLA Laboratory Rell Samuels M.D., Ph.D., Logistics Technician, HLA Laboratory Licha Nieto, Ph.D., CLIA Logistics Technician, [facility] Clinical Laboratories Current methodology comment last revised on 04/25/17. us Jossie King MD LAB BLOOD ORDERABL ES Final Result [facility] * Collection Task for HLA Typing 1 (07/29/2024 11:01 AM JOURNEYMAN [employer]) Pathologist [facility] HLA Class I DNA (ABC) Recipient Received Blood 07/29/2024 11:0 1 AM JOUR[employer]MAN [employer] 07/29/2024 11:56 AM [employer]OUR[employer]MAN [employer] Jossie King MD LAB BLOOD ORDERABL ES Final Result Performing Organization Address [facility] de Phone Number [facility] [place] [address] * Collection Task for HLA Antibody Screen (07/29/2024 11:01 AM JOURNEYMAN APPRENT[employer]) [facility] HLA Antibody Screen By Single Antigen Received Blood 07/29/2024 11:0 1 AM [employer] 07/29/2024 11:56 AM [employer]OUR[employer]MAN [employer] Jossie King MD LAB BLOOD ORDERABL ES Final Result Performing Organization Address [facility] de Phone [facility] [place] [address] * Collection Task for HLA Typing 2, Patient (07/29/2024 11:01 AM JOURNEYMAN [employer]) [facility] HLA Class II DNA (DR, DQ, DP) Recipient Received Blood 07/29/2024 11:0 1 AM JOUR[employer]MAN [employer] 07/29/2024 11:56 AM JOURNEYMAN [employer] Jossie King MD LAB BLOOD ORDERABL ES Final Result Performing Organization Address [facility] de Phone Number [facility] [place] [address] * (ABNORMAL) eGFR (07/29/2024 11:01 AM JOURNEYMAN APPRENT[employer]) [facility] eGFR 7(L) >=60 mL/min/1. 73 m2 Comment: [...] reviewed 2021. Blood 07/29/2024 11:0 1 AM [employer]OUR[employer] 07/29/2024 11:33 AM JOURNEYMAN [employer] us Jossie King MD LAB BLOOD ORDERABL ES Final Result [facility] Department of Laboratories [place], [place] [id number] * Differential, auto (07/29/2024 11:01 AM JOURNEYMAN [employer]) Neutrophil abs 3.1 1.5 - 6.5 K/cumm Imm gran abs 0.0 0.0 - 0.1 K/cumm [facility] Lymphocyte abs 1.1 0.8 - 3.3 K/cumm [facility] Monocyte abs 0.7 0.2 - 0.8 K/cumm [facility] Eosinophil abs 0.2 0.0 - 0.5 K/cumm [facility] Basophil abs 0.0 0.0 - 0.1 K/cumm [facility] Neutrophil pct 60.3 % [facility] Comment: Interpretive Data Percent cell count reference ranges are not reported, since discordance with absolute values may lead to misinterpretation of CBC data. Current Interpretive Data was last revised on 2017. Imm gran pct 0.6 % [facility] Comment: Interpretive Data Percent cell count reference ranges are not reported, since discordance with absolute values may lead to misinterpretation of CBC data. Current Interpretive Data was last revised on 2017. Lymphocyte pct 21.4 % [facility] Comment: Interpretive Data Percent cell count reference ranges are not reported, since discordance with absolute values may lead to misinterpretation of CBC data. Current Interpretive Data was last revised on 2017. Monocyte pct 13.7 % [facility] Comment: Interpretive Data Percent cell count reference ranges are not reported, since discordance with absolute values may lead to misinterpretation of CBC data. Current Interpretive Data was last revised on 2017. Eosinophil pct 3.2 % [facility] Comment: Interpretive Data Percent cell count reference ranges are not reported, since discordance with absolute values may lead to misinterpretation of CBC data. Current Interpretive Data was last revised on 2017. Basophil pct 0.8 % [facility] Comment: Interpretive Data Percent cell count reference ranges are not reported, since discordance with absolute values may lead to misinterpretation of CBC data. Current Interpretive Data was last revised on 2017. Blood 07/29/2024 11:0 1 AM [employer] 07/29/2024 11:34 AM JOURNEYMAN [employer] us Jossie King MD LAB BLOOD ORDERABL ES Final Result [facility] [place] [address] * PSA screen (07/29/2024 11:01 AM JOURNEYMAN [employer]) PSA-Total 0.55 <=3.90 ng/mL Comment: Interpretive Data [...] revised 21. Blood 07/29/2024 11:0 1 AM JOURNEYMAN [employer] 07/29/2024 11:33 AM JOURNEYMAN [employer] Narrative [facility] - 07/29/2024 12:39 PM JOURNEYMAN [employer] This lab is being obtained as part of a Kidney transplant evaluation, is time sensitive, and should only be drawn during the evaluation visit at [facility] 3C Lab. us Jossie King MD LAB BLOOD ORDERABL ES Final Result [facility] [place] [address] * (ABNORMAL) Iron profile w/ IBC (07/29/2024 11:01 AM JOURNEYMAN [employer]) Iron 62 50 - 150 mcg/dL TIBC 208(L) 250 - 400 mcg/dL [facility] Transferrin saturation 30 20 - 50 % [facility] Blood 07/29/2024 11:0 1 AM [employer]OUR[employer] 07/29/2024 11:33 AM JOURNEYMAN [employer] Narrative [facility] - 07/29/2024 12:10 PM JOUR[employer]MAN [employer] This lab is being obtained as part of a Kidney transplant evaluation, is time sensitive, and should only be drawn during the evaluation visit at [address] Jossie King MD LAB BLOOD ORDERABL ES Final Result Performing Organization Address [facility] de Phone Number [facility] [place] [address] * HIV 1/2 Antibody plus p24 Antigen Blood (07/29/2024 11:01 AM JOURNEYMAN [employer]) Pathologist [facility] HIV 1/2 ab + p24 ag Nonreactive Nonreactive Comment:Nonreactive for HIV- 1 antigen and HIV-1/HIV-2 antibodies. No laboratory evidence of HIV infection. If acute HIV infection is suspected, consider testing for HIV-1 RNA. Current interpretive data was last revised on 22. Blood 07/29/2024 11:0 1 AM JOUR[employer] 07/29/2024 11:32 AM JOURNEYMAN [employer] Narrative [facility] - 07/29/2024 12:13 PM JOURNEYMAN [employer] This lab is being obtained as part of a Kidney transplant evaluation, is time sensitive, and should only be drawn during the evaluation visit at [address] Jossie King MD LAB MICROBIOLOGY - GENERAL ORDERABLES Final Result Performing Organization Address [facility] de Phone Number [facility] [place] [address] * (ABNORMAL) CMV, IgG Blood (07/29/2024 11:01 AM JOURNEYMAN APPRENT[employer]) Pathologist [facility] CMV IgG Positive( A) Negative Comment: Interpretive [...] CMV infection. Blood 07/29/2024 11:0 1 AM JOURNEYMAN [employer] 07/29/2024 11:33 AM JOURNEYMAN [employer] Narrative ALESSANDRA [facility] - 07/29/2024 1:44 PM JOUR[employer]MAN [employer] This lab is being obtained as part of a Kidney transplant evaluation, is time sensitive, and should only be drawn during the evaluation visit at [facility] 3CAM Lab. Jossie King MD LAB MICROBIOLOGY - GENERAL ORDERABLES Final Result [facility] [place] [address] * HLA Antibody Screen - SAB (Class I and Class II) (07/29/2024 11:01 AM JOURNEYMAN [employer]) Class I Treatment EDTA [facility] Class I [...] DR52 [facility] Blood 07/29/2024 11:0 1 AM JOUR[employer]MAN [employer] 08/02/2024 9:46 AM JOURNEYMAN [employer] Narrative [facility] - 08/02/2024 9:46 AM JOURNEYMAN [employer] Single-antigen HLA antibody screen is performed on serum samples using a method developed and validated by the [facility] HLA laboratory based on an FDA-approved IVD kit (LABScreen Single-Antigen, [employer], [place], [place]). All patient serum samples are pretreated with EDTA before the screen to prevent complement interference. Additional serum treatments, such as adsorption and DTT treatment, may be performed as indicated. ??Interpretive comments: Low risk: MFI [id number]. Moderate risk: MFI [id number]. Increased risk: MFI >/= 5000. The presence [...] antigens to avoid. Testing performed at the [facility] Laboratory, [address] [place] [address], 5th floor, [place], [address]. [place] # [id number]. Dorothy Meade, Ph.D., Needle Valve Operator, HLA Laboratory Rell Samuels M.D., Ph.D., Logistics Technician, HLA Laboratory Licha Nieto, Ph.D., CLIA Logistics Technician, [facility] Clinical Laboratories Current methodology and interpretive comments last revised on 09/15/2022. us Jossie King MD LAB BLOOD ORDERABL ES Final Result [facility] * (ABNORMAL) CBC with auto differential (07/29/2024 11:01 AM JOURNEYMAN [employer]) WBC 5.1 3.8 - 9.9 K/cumm Hgb 11.5(L) 13.0 - 17.5 g/dL [facility] Hct 34.4(L) 38.9 - 50.3 % [facility] Plt 208 150 - 400 K/cumm [facility] MPV 10.8 9.1 - 12.3 fL [facility] RBC 3.76(L) 4.30 - 5.80 M/cumm [facility] MCV 91.5 81.3 - 96.4 fL [facility] MCH 30.6 27.1 - 33.3 pg [facility] MCHC 33.4 32.3 - 35.7 g/dL [facility] RDW CV 14.3 11.1 - 14.9 % [facility] RDW SD 47.9 35.7 - 48.1 fL [facility] NRBC abs 0.00 0.00 - 0.01 K/cumm [facility] Blood 07/29/2024 11:0 1 AM [employer] 07/29/2024 11:34 AM JOURNEYMAN [employer] Narrative [facility] - 07/29/2024 11:45 AM JOUR[employer]MAN [employer] This lab is being obtained as part of a Kidney transplant evaluation, is time sensitive, and should only be drawn during the evaluation visit at [address] Lab. Jossie King MD LAB BLOOD ORDERABL ES Final Result Performing Organization Address [facility] Co de Phone Number [facility] Department [place] [place] [address] * Hepatitis C antibody Blood (07/29/2024 11:01 AM JOURNEYMAN [employer]) Hep C Ab Nonreactive Nonreactive Comment:Antibodies to HCV no t detected. Does NOT exclude the possibility of recent exposure to HCV. Current interpretive data was last revised on 22 Blood 07/29/2024 11:0 1 AM [employer] 07/29/2024 11:32 AM JOUR[employer]MAN [employer] Narrative [facility] - 07/29/2024 12:47 PM JOUR[employer]MAN [employer] This lab is being obtained as part of a Kidney transplant evaluation, is time sensitive, and should only be drawn during the evaluation visit at [address] Jossie King MD LAB MICROBIOLOGY - GENERAL ORDERABLES Final Result Performing Organization Address City/[facility]/ZIP Co de Phone Number [facility] [place] [address] * (ABNORMAL) Madiha-Morris virus (EBV) antibody panel Blood (07/29/2024 11:01 AM JOURNEYMAN [employer]) [facility] EBV nuclear Ab Positive(A) Negative Comment:Indicates the presen ce of detectable IgG antibody to EBV Nuclear Antigen. EBV VCA IgG Positive(A) Negative [facility] Comment:Indicates the presen ce of antibody; 90% of the adult population will have been infected with EBV sometime in the past. EBV VCA IgM Negative Negative [facility] Comment:No detectable IgM an tibody to EBV-VCA. A negative result indicates no current infection with EBV. If clinical suspicion of acute EBV infection is present, testing should be repeated after one week. EBV interp Past Infection [facility] Blood 07/29/2024 11:0 1 AM JOUR[employer]MAN [employer] 07/29/2024 11:33 AM JOURNEYMAN [employer] Narrative [facility] - 07/29/2024 1:43 PM JOURNEYMAN [employer] This lab is being obtained as part of a Kidney transplant evaluation, is time sensitive, and should only be drawn during the evaluation visit at [address] Lab. Jossie King MD LAB MICROBIOLOGY - GENERAL ORDERABLES Final Result Performing Organization Address City/[facility]/ZIP Co de Phone Number [facility] [place] [address] * Hepatitis B core antibody, total Blood (07/29/2024 11:01 AM JOURNEYMAN [employer]) [facility] Hep B core IgG/IgM Nonreactive Nonreactive Blood 07/29/2024 11:0 1 AM JOUR[employer] 07/29/2024 11:32 AM JOURNEYMAN [employer] Narrative [facility] - 07/29/2024 12:47 PM JOURNEYMAN [employer] This lab is being obtained as part of a Kidney transplant evaluation, is time sensitive, and should only be drawn during the evaluation visit at [address] Lab. Jossie King MD LAB MICROBIOLOGY - GENERAL ORDERABLES Final Result Performing Organization Address City/[facility]/ZIP Co de Phone Number [facility] [place] [address] * Protein, urine, random (07/29/2024 11:01 AM JOURNEYMAN [employer]) Protein, ur, quant 121.2 mg/dL Comment: Interpretive Data No reference range established. Current interpretive data was last revised 2019. Urine 07/29/2024 11:0 1 AM JOUR[employer] 07/29/2024 11:32 AM JOURNEYMAN [employer] Narrative [facility] - 07/29/2024 12:18 PM JOURNEYMAN [employer] This lab is being obtained as part of a Kidney transplant evaluation, is time sensitive, and should only be drawn during the evaluation visit at [address] Lab. Jossie King MD LAB URINE ORDERABL ES Final Result Performing Organization Address [facility] [place] [address] * Creatinine, urine, random (07/29/2024 11:01 AM JOURNEYMAN [employer]) Creatinine Ur 167.1 mg/dL Comment: Interpretive Data No reference range established. Current interpretive data was last revised 2019. Urine 07/29/2024 11:0 1 AM JOUR[employer] 07/29/2024 11:32 AM JOURNEYMAN [employer] Narrative [facility] 07/29/2024 12:18 PM JOURNEYMAN [employer] This lab is being obtained as part of a Kidney transplant evaluation, is time sensitive, and should only be drawn during the evaluation visit at [address] Lab. Jossie King MD LAB URINE ORDERABL ES Final Result Performing Organization Address [facility] Co de Phone Number [facility] [place] [address] * HSV 2 IgG Antibody Blood (07/29/2024 11:01 AM JOURNEYMAN [employer]) Pathologist [facility] HSV 2 IgG Nonreactive Nonreactive Comment: Interpretive Data 1. Nonreactive: No detectable IgG antibody to HSV-2. 2. Equivocal: Presence or absence of detectable antibodies to HSV-2 cannot be determined and the test should be repeated. 3. Reactive: Indicates presence of detectable IgG antibody to HSV-2. Current interpretive data was last revised on 2022. Blood 07/29/2024 11:0 1 AM J[employer] 07/29/2024 11:33 AM JOURNEYMAN [employer] Narrative [facility] - 07/29/2024 1:44 PM JOURNEYMAN [employer] This lab is being obtained as part of a Kidney transplant evaluation, is time sensitive, and should only be drawn during the evaluation visit at [address] Jossie King MD LAB MICROBIOLOGY - GENERAL ORDERABLES Final Result Performing Organization Address [facility] de Phone Number [facility] [place] [address] * (ABNORMAL) HSV 1 IgG Antibody Blood (07/29/2024 11:01 AM JOURNEYMAN [employer]) [facility] HSV 1 IgG Reactive( A) Nonreactive Comment: Interpretive Data 1. Nonreactive: No detectable IgG antibody to HSV-1. 2. Equivocal: Presence or absence of detectable antibodies to HSV-1 cannot be determined and the test should be repeated. 3. Reactive: Indicates presence of detectable IgG antibody to HSV-1. Current interpretive data was last revised on 2016. Blood 07/29/2024 11:0 1 AM [employer] 07/29/2024 11:33 AM JOUR[employer]MAN [employer] Narrative [facility] - 07/29/2024 1:44 PM JOURNEYMAN [employer] This lab is being obtained as part of a Kidney transplant evaluation, is time sensitive, and should only be drawn during the evaluation visit at [address] Jossie King MD LAB MICROBIOLOGY - GENERAL ORDERABLES Final Result Performing Organization Address [facility] Co de Phone Number [facility] [place] [address] * RPR Blood (07/29/2024 11:01 AM JOURNEYMAN [employer]) Pathologist [facility] RPR Nonreactive Nonreactive Blood 07/29/2024 11:0 1 AM J[employer] 07/29/2024 11:33 AM JOUR[employer]MAN [employer] [facility]ative [facility] 07/29/20[facility] 12:34 PM JOURNEYMAN [employer] This lab is being obtained as part of a Kidney transplant evaluation, is time sensitive, and should only be drawn during the evaluation visit at [address] Lab. Jossie King MD LAB MICROBIOLOGY - GENERAL ORDERABLES Final Result Performing Organization Address [facility] de Phone Number [facility] [place] [address] * Hepatitis B surface antibody (immune status) Blood (07/29/2024 11:01 AM JOURNEYMAN [employer]) [facility] HBsAb (immune status) Reactive Comment:This result is consi stent with immunity to Hepatitis B Virus when used in the setting of routine screening. Current interpretive data was last revised on 22 Blood 07/29/2024 11:0 1 AM [employer] 07/29/2024 11:32 AM JOUR[employer]MAN [employer] Narrative [facility] 07/29/2024 12:47 PM JOURNEYMAN [employer] This lab is being obtained as part of a Kidney transplant evaluation, is time sensitive, and should only be drawn during the evaluation visit at [address] Jossie King MD LAB MICROBIOLOGY - GENERAL ORDERABLES Final Result [facility] [place] [address] * Hepatitis B Surface Antigen Blood (07/29/2024 11:01 AM JOURNEYMAN APPRENTICE ELECTRICIANS) [facility] HepBsAg Nonreactive Nonreactive Blood 07/29/2024 11:0 1 AM JOURNEYMAN APPRENTICE [employer] 07/29/2024 11:32 AM JOURNEYMAN APPRENTICE ELECTRICIANS Narrative [facility] - 07/29/2024 12:47 PM JOURNEYMAN APPRENTICE ELECTRICIANS This lab is being obtained as part of a Kidney transplant evaluation, is time sensitive, and should only be drawn during the evaluation visit at [address] Jossie King MD LAB MICROBIOLOGY - GENERAL ORDERABLES Final Result Performing Organization Address [facility] de Phone Number [facility] [place] [address] * (ABNORMAL) aPTT (07/29/2024 11:01 AM JOURNEYMAN APPRENTICE ELECTRICIANS) aPTT 61(H) 28 - 38 sec Comment: Interpretive Data Heparin therapeutic range: 66.0 - 100.0 seconds. Range based on correlation with therapeutic heparin activity range of 0.3 - 0.7 Units/mL. Current interpretive data was last revised on 2023. Blood 07/29/2024 11:0 1 AM JOURNEYMAN APPRENTICE [employer] 07/29/2024 11:32 AM JOURNEYMAN APPRENTICE E[employer]RICIANS Narrative [facility] - 07/29/2024 11:42 AM JOURNEYMAN APPRENTICE E[employer]ICIANS This lab is being obtained as part of a Kidney transplant evaluation, is time sensitive, and should only be drawn during the evaluation visit at [address] Jossie King MD LAB BLOOD ORDERABL ES Final Result Performing Organization Address [facility] de Phone Number [facility] [place] [address] * (ABNORMAL) Protime-INR (07/29/2024 11:01 AM JOURNEYMAN APPRENTICE ELECTRICIANS) PT 50.6(H) 9.7 - 13.0 sec INR 4.54(H) 0.90 - 1.20 [facility] Comment: Interpretive data Oral anticoagulant therapeutic ranges: Venous thromboembolism prophylaxis or treatment: 2.0-3.0 CARDIOLOGY Standard range: 2.0-3.0 High-intensity range: 2.5-3.5 Refer to indication-specific guidelines for appropriate target ranges for prosthetic heart valve replacement. Current interpretive data was last revised on 2019. Blood 07/29/2024 11:0 1 AM JOURNEYMAN APPRENT[employer] 07/29/2024 11:32 AM JOURNEYMAN APPRENTICE E[employer]ICI[employer] Narrative [facility] - 07/29/2024 11:42 AM JOURNEYMAN APPRENT[employer] This lab is being obtained as part of a Kidney transplant evaluation, is time sensitive, and should only be drawn during the evaluation visit at [address] Jossie King MD LAB BLOOD ORDERABL ES Final Result Performing Organization Address [facility] de Phone Number [facility] [place] [address] * Varicella Zoster IgG antibody Blood (07/29/2024 11:01 AM JOURNEYMAN APPRENTICE E[employer]RICIANS) Pathologist [facility] VZV IgG Reactive Reactive Comment:Reactive: Results diego ggest response to immunization or prior exposure to the virus. Blood 07/29/2024 11:0 1 AM JOURNEYMAN APPRENTICE [employer]RICI[employer] 07/29/2024 11:33 AM JOURNEYMAN APPRENTICE E[employer]RICIANS Narrative [facility] 07/29/2024 1:45 PM JOURNEYMAN APPRENTICE E[employer]RICIANS This lab is being obtained as part of a Kidney transplant evaluation, is time sensitive, and should only be drawn during the evaluation visit at [address] Jossie King MD LAB MICROBIOLOGY - GENERAL ORDERABLES Final Result Performing Organization Address [facility] de Phone Number [facility] [place] [address] * (ABNORMAL) Uric acid (07/29/2024 11:01 AM JOURNEYMAN APPRENTICE E[employer]RICIANS) Pathologist [facility] Uric acid 2.0(L) 3.0 - 8.0 mg/dL Blood 07/29/2024 11:0 1 AM JOURNEY[employer] 07/29/2024 11:33 AM JOURNEYMAN APPRENTICE [employer] Narrative [facility] 07/29/2024 12:10 PM JOURNEYMAN APPRENTICE [employer]ICI[employer] This lab is being obtained as part of a Kidney transplant evaluation, is time sensitive, and should only be drawn during the evaluation visit at [address] Jossie King MD LAB BLOOD ORDERABL ES Final Result Performing Organization Address City/State/[facility] Co de Phone Number [facility] [place] [address] * (ABNORMAL) Phosphorus (07/29/2024 11:01 AM JOURNEYMAN APPRENTICE ELECTRICIANS) Pathologist [facility] Phosphorus, pl 5.1(H) 2.3 - 4.5 mg/dL Blood 07/29/2024 11:0 1 AM JOURNEY[employer]PR[employer] 07/29/2024 11:33 AM JOURNEYMAN APPRENTICE E[employer] Narrative [facility] - 07/29/2024 12:10 PM JOURNEYMAN APPRENTICE E[employer] This lab is being obtained as part of a Kidney transplant evaluation, is time sensitive, and should only be drawn during the evaluation visit at [address] Lab[address] Jossie King MD LAB BLOOD ORDERABL ES Final Result Performing Organization Address [facility] Co de Phone Number [facility] [place] [address] * (ABNORMAL) PTH (07/29/2024 11:01 AM JOURNEYMAN APPRENTICE ELECTRICIANS) [facility] PTH 444(H) 15 - 65 pg/mL Blood 07/29/2024 11:0 1 AM JOURNEYMAN [employer]PRENT[employer] 07/29/2024 11:34 AM JOURNEYMAN APPRENTICE [employer]ICIANS Narrative [facility] - 07/29/2024 12:02 PM JOURNEYMAN APPRENTICE E[employer]RICIANS This lab is being obtained as part of a Kidney transplant evaluation, is time sensitive, and should only be drawn during the evaluation visit at [address] Jossie King MD LAB BLOOD ORDERABL ES Final Result Performing Organization Address City/[facility] Co de Phone Number [facility] [place] [address] * (ABNORMAL) Hemoglobin A1c (07/29/2024 11:01 AM JOURNEYMAN APPRENTICE ELECTRICIANS) [facility] Hgb A1C 9.0(H) 4.0 - 5.6 % Estimated Average Glucose 212 mg/dL [facility] Comment: The ADA recommends reporting an estimated Average Glucose (eAG) with all Hemoglobin A1c results using the equation derived from a study of 507 normal and diabetic adults. ??Minority populations were underrepresented and children were not included. ?? (Diabetes Care 2020; 43(S1): S66-S76). ??The eAG is not equivalent to a fasting glucose. Blood 07/29/2024 11:0 1 AM JOURNEYMAN APPRENTICE [employer] 07/29/2024 11:34 AM JOURNEYMAN APPRENTICE E[employer]RICIANS Narrative [facility] - 07/29/2024 11:53 AM JOURNEYMAN APPRENTICE E[employer]RICIANS This lab is being obtained as part of a Kidney transplant evaluation, is time sensitive, and should only be drawn during the evaluation visit at [address] Lab. Jossie King MD LAB BLOOD ORDERABL ES Final Result Performing Organization Address City/[facility] Co de Phone Number [facility] [place] [address] * Gamma GT (07/29/2024 11:01 AM JOURNEYMAN APPRENTICE ELECTRICIANS) GGT 22 10 - 50 Units/L Blood 07/29/2024 11:0 1 AM JOURNEYMAN APPRENT[employer] 07/29/2024 11:33 AM JOURNEYMAN APPRENTICE E[employer]RICIANS Narrative [facility] - 07/29/2024 12:40 PM JOURNEYMAN APPRENTICE [employer]ICIANS This lab is being obtained as part of a Kidney transplant evaluation, is time sensitive, and should only be drawn during the evaluation visit at [address] Lab[address] Jossie King MD LAB BLOOD ORDERABL ES Final Result Performing Organization Address City/[facility]/ZIP Co de Phone Number [facility] [place] [address] * (ABNORMAL) Ferritin (07/29/2024 11:01 AM JOURNEYMAN APPRENTICE E[employer]RICIANS) Ferritin 761(H) 30 - 400 ng/mL Blood 07/29/2024 11:0 1 AM JOURNEYMAN APPRENT[employer] 07/29/2024 11:33 AM JOURNEYMAN APPRENTICE E[employer]IANS Narrative [facility] - 07/29/2024 12:10 PM JOURNEYMAN APPRENTICE E[employer]RICIANS This lab is being obtained as part of a Kidney transplant evaluation, is time sensitive, and should only be drawn during the evaluation visit at [facility] Lab. us Jossie King MD LAB BLOOD ORDERABL ES Final Result [facility] [place] [address] * (ABNORMAL) Lipid panel (07/29/2024 11:01 AM JOURNEYMAN APPRENTICE ELECTRICIANS) [facility] Signature Cholesterol 114 30 - 199 mg/dL Comment: [...] revised on 2018. Triglycerides 66 <=149 mg/dL [facility] Comment: Interpretive Data Ages < or = [...] revised on 2018. HDL 29(L) >=40 mg/dL [facility] Comment: Interpretive Data Ages < or = [...] on 2018. LDL, calculated 71 <=129 mg/dL [facility] Comment: Interpretive Data Ages < or = [...] NCEP Expert Panel. Circulation 2004;110:227 3. Jose M et al. TYRONE Cardiol. 2020 December 19;5(5):540-548. doi: 10.1001/jamacardio.2020.0013 Current Interpretive Data was last revised on 2024. Non-HDL Cholesterol 85 mg/dL [facility] Comment: Interpretive Data Ages < or = [...] last revised on 2018. Chol/HDL ratio 4 [facility] Blood 07/29/2024 11:0 1 AM JOURNEYMAN [employer]PR[employer] 07/29/2024 11:33 AM JOURNEYMAN APPRENTICE [employer] Narrative [facility] - 07/29/2024 12:10 PM JOURNEYMAN APPRENT[employer] This lab is being obtained as part of a Kidney transplant evaluation, is time sensitive, and should only be drawn during the evaluation visit at [facility] Lab. Jossie King MD LAB BLOOD ORDERABL ES Final Result [facility] Department [place] [address] * (ABNORMAL) Comprehensive metabolic panel (07/29/2024 11:01 AM JOURNEYMAN APPRENTICE E[employer]RICIANS) Sodium 136 135 - 145 mmol/L Potassium, pl 4.6 3.3 - 4.9 mmol/L [facility] Chloride 93(L) 97 - 110 mmol/L [facility] CO2 26 22 - 32 mmol/L [facility] Anion gap 17(H) 2 - 15 mmol/L [facility] BUN 65(H) 6 - 25 mg/dL [facility] Creatinine 8.07(H) 0.80 - 1.30 mg/dL [facility] Glucose 280(H) 70 - 199 mg/dL [facility] Comment: Interpretive Data Fasting glucose >/= 126 [...] 2022. Calcium 9.4 8.5 - 10.3 mg/dL [facility] Bilirubin, total 0.3 0.1 - 1.2 mg/dL [facility] Protein, pl 7.2 6.5 - 8.5 g/dL [facility] Albumin 3.8 3.5 - 5.0 g/dL [facility] Alk phos 99 40 - 130 Units/L [facility] ALT 30 7 - 55 Units/L [facility] AST 31 10 - 50 Units/L [facility] Blood 07/29/2024 11:0 1 AM JOURNEY[employer] 07/29/2024 11:33 AM JOURNEYMAN APPRENTICE [employer] Narrative [facility] - 07/29/2024 12:10 PM JOURNEYMAN APPRENT[employer] This lab is being obtained as part of a Kidney transplant evaluation, is time sensitive, and should only be drawn during the evaluation visit at [facility] Lab. us Jossie King MD LAB BLOOD ORDERABL ES Final Result [facility] Department [place] [address] * (ABNORMAL) Oxalate (oxalic acid) (07/29/2024 10:53 AM JOURNEYMAN APPRENTICE ELECTRICIANS) Oxalate 12.3(H) <=2.0 mcmol/L [facility] Comment: High value suggestive of Primary Hyperoxaluria. However, if the patient has chronic kidney disease (GFR<30 mL/min/1.73m2), plasma oxalate values up to 30 mcmol/L can be normal. The [facility] Hyperoxaluria Center is available to review case details and answer any questions regarding interpretation ([email or web address]; [phone]) ADDITIONAL INFORMATION This test has been modified from the optometric technologist's instructions. Its performance characteristics were determined by [facility] in a manner consistent with CLIA requirements. This test has not been cleared or approved by the U.S. Food and Drug Administration. Test Performed by: [place] [address] Programs Manager: Jairo Higgins Ph.D.; CLIA# [id number] Blood 07/29/2024 10:5 3 AM [employer]OUR[employer] 07/29/2024 11:37 AM JOURNEYMAN APPRENTICE [employer] us Jossie King MD LAB BLOOD ORDERABL ES Final Result [facility] [place] [address] [place] [facility] * (ABNORMAL) Urinalysis reflex to microscopic (07/29/2024 10:53 AM JOURNEYMAN APPRENTICE [employer]RICI[employer]) Color, ur Yellow Yellow Clarity, ur Cloudy(A) Clear [facility] Specific gravity, ur 1.022 1.003 - 1.030 [facility] pH, urine 6.0 [facility] Comment: Interpretive Data ? Urine pH is affected by diet, medications, systemic acid-base disturbances, and renal tubular function. ??pH may affect urinary stone formation. ??For example, urine pH below 6.0 may help reduce the tendency for calcium phosphate stones and pH greater than 6.0 may reduce the tendency for uric acid stone formation. Source: [facility] Current Interpretive Data was last revised on 2017 Protein, ur ql 2+(A) Negative [facility] Glucose, ur ql 4+(A) Negative [facility] Ketones, ur Negative Negative [facility] Bilirubin, ur Negative Negative [facility] Blood, ur 3+(A) Negative [facility] Urobilinogen, ur <2.0 <2.0 mg/dL [facility] Nitrite, ur Negative Negative [facility] Leukocyte esterase, ur 2+(A) Negative [facility] UA reflex comment Reflex to microscopic UA will be performed. [facility] Urine 07/29/2024 10:5 3 AM [employer]OURNEY[employer] 07/29/2024 11:27 AM JOURNEYMAN APPRENTICE [employer] Narrative [facility] - 07/29/2024 11:29 AM JOURNEYMAN APPRENT[employer] This lab is being obtained as part of a Kidney transplant evaluation, is time sensitive, and should only be drawn during the evaluation visit at [facility] Lab. Jossie King MD LAB URINE ORDERABL ES Final Result Performing Organization Address [facility] Co de Phone Number [facility] [place] [address] * (ABNORMAL) Urinalysis, microscopic only (07/29/2024 10:53 AM JOURNEYMAN APPRENT[employer]) WBC, ur 21-50(A) 0 - 5 /HPF RBC, ur >50(A) 0 - 2 /HPF [facility] Epithelial cells, squamous, ur 1-5 0 - 5 /HPF [facility] Bacteria, ur Trace(A) [facility] Mucous, ur Present(A) [facility] Hyaline casts, ur 1-5 0 - 10 /LPF [facility] Urine 07/29/2024 10:5 3 AM [employer]OUR[employer] 07/29/2024 11:27 AM JOURNEY[employer] Jossie King MD LAB URINE ORDERABL ES Final Result Performing Organization Address [facility]/ZIP Co de Phone Number [facility] [place] [address] * Cardiology Document Scan (06/07/2024 11:10 AM CDT) Anatomical Region Laterality Modality Other us Karen Barnes NP CV CARDIAC SERVICES PROCEDUR ES Final Result * (ABNORMAL) TSH (10/27/2023 2:30 AM JOURNEYMAN APPRENTICE [employer]) Thyroid Stimulating Hormone 13.20(H) 0.30 - 4.20 mcIUnit/mL Blood 10/27/2023 2:30 AM JOURNEYMAN APPR[employer] 10/27/2023 2:42 AM JOURNEYMAN AP[employer] us Lorne Mcnulty MD LAB BLOOD ORDERABLES Final Result [facility] [address] [place] [address] from Last 3 Months or Most Recently Relevant to Health Maintenance Insurance [facility] MEDICARE SOLUTIONS IDPA MEDICARE SOLUTIONS TRANSPLANT [employer] MEDICARE RISK IDPA TRANSPLANT [employer] MEDICARE RISK IDPA Advance Directives For more information, please contact: [phone] * Full Code (Latest Code Status on File) Date Activated Date Inactivated Comments 10/13/2023 11:32 PM 11/03/2023 11:42 PM * Full Code Date Activated Date Inactivated Comments 06/05/2022 6:17 AM 06/29/2022 6:20 PM * Full Code Date Activated Date Inactivated Comments 06/05/2022 4:43 AM 06/05/2022 4:43 AM * Full Code Date Activated Date Inactivated Comments 06/04/2022 9:55 PM 06/05/2022 4:43 AM 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
--- OUTSIDE RECORDS SUMMARY | 2024-08-18 13:03 | XMS_ITS | Encounter Summary ---
Author Organization [facility] Healthcare Address [address] [place] [address] Care Team Providers Care Practice Coordinator Name Role Phone Aditya Castro MD Primary Care Provider [phone] Alondra Lambert RN Unavailable [phone] Shannon Brock MD, Hamlet Gordon Unavailable [phone] Encounter Details Date Type Department Care Team (Late st Contact Info) Description 07/29/2024 Telephone [facility] Transplant Kidney [address] [phone] [place], [place] [id number] Alondra [place], RN [address] [facility] [address] [place] [id number] Social History Tobacco Use Types Packs/Day Years [...] materials from doctor or pharmacy Never 12/01/2023 [facility] Utilities Answer Date Recorded In the [...] often do you attend chur ch or hinduism services? 1 to 4 times per year 10/16/2023 Do you belong to any clubs o r organizations such as congregational groups, unions, fraternal or athletic groups, or [...] place to sleep or slept in a long-term (including now)? No 10/16/2023 Personal Safety Answer Date Recorded Have you ever been in or are you currently in a harmful physical or emotional relationship or is someone making you feel afraid or unsafe? 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 He thought he was supposed to be here today at 9. I told him that hisschedule was in his folder along with the consents. I was able to secure him an appointment to see SW at 10. He is heading this way now. 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
--- OUTSIDE RECORDS SUMMARY | 2024-08-18 13:03 | XMS_ITS | Encounter Summary ---
Author Organization [facility] Healthcare Address [address] [place] [address] Care Team Providers Care Junior Paralegal Name Role Phone Aditya Castro MD Primary Care Provider [phone] Alondra Lambert RN Unavailable [phone] Shannon Brock MD, [place] Gordon Unavailable [phone] Encounter Details Date Type Department Care Team (Late st Contact Info) Description 07/29/2024 1:15 PM WINDOWS 7 DEPLOYMENT LEAD Lab [facility] ([facility]) [address] [place] [phone] End stage renal disease (CMS/HCC) (HCC); ESRD (end stage renal disease) (CMS/HCC) ([facility]) Social History Tobacco Use Types Packs/Day Years [...] materials from doctor or pharmacy Never 12/01/2023 [facility] Utilities Answer Date Recorded In [...] week 08/01/2024 How often do you attend yazidism or synagogue serv ices? Never 08/01/2024 Do you belong to any clubs o r organizations such as yazidism groups, unions, fraternal or athletic groups, or [...] place to sleep or slept in a usp (including now)? No 10/16/2023 Housing Stability Vital Sign Answer Rubens e Recorded In the last 12 months, was t here a time when you were not able to pay the mortgage or rent on time? No 08/01/2024 In the past 12 months, how m any times have you moved where you were living? 1 08/01/2024 At any time in the past 12 m [facility], were you homeless or living in a usp (including now)? No 08/01/2024 Personal Safety Answer Date Recorded Have you ever been in or are you currently in a harmful physical or emotional relationship or is someone making you feel afraid or unsafe? 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 Male 3:42 AM WINDOWS 7 DEPLOYMENT LEAD Gender Identity Not on file Sexual Orientation Not on file documented as of this encounter Plan of Treatment Not on file documented as of this encounter Procedures Procedure Name Priority Date/Time Associated Diagnosis Comments TYPE AND SCREEN Routine 07/29/2024 11:23 AM WINDOWS 7 DEPLOYMENT LEAD End stage renal disease (CMS/HCC) (HCC) ABO/RH Routine 07/29/2024 11:13 AM WINDOWS 7 DEPLOYMENT LEAD LR HLA TYPING (CLASS I AND CLASS II) Routine 07/29/2024 11:01 AM WINDOWS 7 DEPLOYMENT LEAD End stage renal disease (CMS/HCC) (HCC) HLA CLASS I DNA (ABC) RECIPIENT Routine 07/29/2024 11:01 AM WINDOWS 7 DEPLOYMENT LEAD End stage renal disease (CMS/HCC) (HCC) HLA ANTIBODY SCREEN BY SINGLE ANTIGEN Routine 07/29/2024 11:01 AM WINDOWS 7 DEPLOYMENT LEAD End stage renal disease (CMS/HCC) (HCC) HLA CLASS II DNA (DR, DQ, DP) RECIPIENT Routine 07/29/2024 11:01 AM WINDOWS 7 DEPLOYMENT LEAD End stage renal disease (CMS/HCC) (HCC) EGFR Routine 07/29/2024 11:01 AM WINDOWS 7 DEPLOYMENT LEAD End stage renal disease (CMS/HCC) (HCC) DIFFERENTIAL AUTO Routine 07/29/2024 11: 01 AM WINDOWS 7 DEPLOYMENT LEAD End stage renal disease (CMS/HCC) (HCC) PSA SCREEN Routine 07/29/2024 11:01 AM WINDOWS 7 DEPLOYMENT LEAD End stage renal disease (CMS/HCC) (HCC) IRON PROFILE W/ IBC Routine 07/29/2024 1 1:01 AM WINDOWS 7 DEPLOYMENT LEAD End stage renal disease (CMS/HCC) (HCC) HIV 1/2 ANTIBODY PLUS P24 ANTIGEN Routine 07/29/2024 11:01 AM WINDOWS 7 DEPLOYMENT LEAD End stage renal disease (CMS/HCC) (HCC) CMV, IGG Routine 07/29/2024 11:01 AM WINDOWS 7 DEPLOYMENT LEAD End stage renal disease (CMS/HCC) (HCC) HLA ANTIBODY SCREEN - SAB (CLASS I AND CLASS II) Routine 07/29/2024 11:01 AM WINDOWS 7 DEPLOYMENT LEAD End stage renal disease (CMS/HCC) (HCC) CBC WITH AUTO DIFFERENTIAL Routine 07/29/2024 11:01 AM WINDOWS 7 DEPLOYMENT LEAD End stage renal disease (CMS/HCC) (HCC) HEPATITIS C ANTIBODY Routine 07/29/2024 11:01 AM WINDOWS 7 DEPLOYMENT LEAD End stage renal disease (CMS/HCC) (HCC) MADIHA-MORRIS VIRUS VCA ANTIBODY PANEL Routine 07/29/2024 11:01 AM WINDOWS 7 DEPLOYMENT LEAD End stage renal disease (CMS/HCC) (HCC) HEPATITIS B CORE ANTIBODY, TOTAL Routine 07/29/2024 11:01 AM WINDOWS 7 DEPLOYMENT LEAD End stage renal disease (CMS/HCC) (HCC) PROTEIN, URINE, RANDOM Routine 11:01 AM WINDOWS 7 DEPLOYMENT LEAD End stage renal disease (CMS/HCC) (HCC) CREATININE, URINE, RANDOM Routine 07/29/2024 11:01 AM WINDOWS 7 DEPLOYMENT LEAD End stage renal disease (CMS/HCC) (HCC) HSV 2 ANTIBODY, IGG Routine 07/29/2024 1 1:01 AM WINDOWS 7 DEPLOYMENT LEAD End stage renal disease (CMS/HCC) (HCC) HSV 1 ANTIBODY, IGG Routine 07/29/2024 1 1:01 AM WINDOWS 7 DEPLOYMENT LEAD End stage renal disease (CMS/HCC) (HCC) RPR Routine 07/29/2024 11:01 AM WINDOWS 7 DEPLOYMENT LEAD End stage renal disease (CMS/HCC) (HCC) HEPATITIS B SURFACE ANTIBODY (IMMUNE STATUS) Routine 07/29/2024 11:01 AM WINDOWS 7 DEPLOYMENT LEAD End stage renal disease (CMS/HCC) (HCC) HEPATITIS B SURFACE ANTIGEN Routine 07/29/2024 11:01 AM WINDOWS 7 DEPLOYMENT LEAD End stage renal disease (CMS/HCC) (HCC) APTT Routine 07/29/2024 11:01 AM WINDOWS 7 DEPLOYMENT LEAD End stage renal disease (CMS/HCC) (HCC) PROTIME-INR Routine 07/29/2024 11:01 AM WINDOWS 7 DEPLOYMENT LEAD End stage renal disease (CMS/HCC) (HCC) VARICELLA ZOSTER ANTIBODY, IGG Routine 07/29/2024 11:01 AM WINDOWS 7 DEPLOYMENT LEAD End stage renal disease (CMS/HCC) (HCC) URIC ACID Routine 07/29/2024 11:01 AM WINDOWS 7 DEPLOYMENT LEAD End stage renal disease (CMS/HCC) (HCC) PHOSPHORUS Routine 07/29/2024 11:01 AM WINDOWS 7 DEPLOYMENT LEAD End stage renal disease (CMS/HCC) (HCC) PTH Routine 07/29/2024 11:01 AM WINDOWS 7 DEPLOYMENT LEAD End stage renal disease (CMS/HCC) (HCC) HEMOGLOBIN A1C Routine 07/29/2024 11:01 AM WINDOWS 7 DEPLOYMENT LEAD End stage renal disease (CMS/HCC) (HCC) GAMMA GT Routine 07/29/2024 11:01 AM WINDOWS 7 DEPLOYMENT LEAD End stage renal disease (CMS/HCC) (HCC) FERRITIN Routine 07/29/2024 11:01 AM WINDOWS 7 DEPLOYMENT LEAD End stage renal disease (CMS/HCC) (HCC) LIPID PANEL Routine 07/29/2024 11:01 AM WINDOWS 7 DEPLOYMENT LEAD End stage renal disease (CMS/HCC) (HCC) COMPREHENSIVE METABOLIC PANEL Routine 07/29/2024 11:01 AM WINDOWS 7 DEPLOYMENT LEAD End stage renal disease (CMS/HCC) (HCC) OXALATE Routine 07/29/2024 10:53 AM WINDOWS 7 DEPLOYMENT LEAD ESRD (end stage renal disease) (CMS/HCC) (HCC) URINALYSIS AND REFLEX TO MICROSCOPIC Routine 07/29/2024 10:53 AM WINDOWS 7 DEPLOYMENT LEAD End stage renal disease (CMS/HCC) (HCC) URINALYSIS, MICROSCOPIC ONLY Routine 07/29/2024 10:53 AM WINDOWS 7 DEPLOYMENT LEAD End stage renal disease (CMS/HCC) (HCC) documented in this encounter Results * Type and screen (07/29/2024 11:23 AM WINDOWS 7 DEPLOYMENT LEAD) Maribel, indirect Negative ABO Rh A Positive [facility] Blood 07/29/2024 11:2 3 AM WINDOWS 7 DEPLOYMENT LEAD 07/29/2024 11:43 AM WINDOWS 7 DEPLOYMENT LEAD Narrative [facility] - 07/29/2024 12:45 PM WINDOWS 7 DEPLOYMENT LEAD Please draw the ABO and the Type and Screen as two separate blood draws with each stamped with the two different times stamps as this is a regulatory requirement for this patient to be listed for Kidney Transplant. ??This lab is being obtained as part of a Kidney transplant evaluation, is time sensitive, and should only be drawn during the evaluation visit at [facility] Lab. Has the patient had Daratumumab or Isatuximab in the past 6 months?->Unknown Jossie King MD LAB BLOOD BANK ERNESTO T ORDERABLES Final Result Performing Organization Address City/[facility]/ZIP Co de Phone Number ALESSANDRA CARRION [facility] [place] [address] * ABO/Rh (07/29/2024 11:13 AM WINDOWS 7 DEPLOYMENT LEAD) ABO Rh A Positive Blood 07/29/2024 11:1 3 AM WINDOWS 7 DEPLOYMENT LEAD 07/29/2024 2:45 PM WINDOWS 7 DEPLOYMENT LEAD Patrickniraj King MD LAB BLOOD BANK ERNESTO T ORDERABLES Final Result Performing Organization Address [facility] de Phone Number [facility] [place] [address] * (ABNORMAL) eGFR (07/29/2024 11:01 AM WINDOWS 7 DEPLOYMENT LEAD) eGFR 7(L) >=60 mL/min/1. 73 m2 Comment: [...] reviewed 2021. Blood 07/29/2024 11:0 1 AM WINDOWS 7 DEPLOYMENT LEAD 07/29/2024 11:33 AM WINDOWS 7 DEPLOYMENT LEAD us Jossie King MD LAB BLOOD ORDERABL ES Final Result [facility] [place] [address] * Differential, auto (07/29/2024 11:01 AM WINDOWS 7 DEPLOYMENT LEAD) Neutrophil abs 3.1 1.5 - 6.5 K/cumm Imm gran abs 0.0 0.0 - 0.1 K/cumm [facility] Lymphocyte abs 1.1 0.8 - 3.3 K/cumm [facility] Monocyte abs 0.7 0.2 - 0.8 K/cumm [facility] Eosinophil abs 0.2 0.0 - 0.5 K/cumm [facility] Basophil abs 0.0 0.0 - 0.1 K/cumm [facility] Neutrophil pct 60.3 % [facility] Comment: Interpretive Data Percent cell count reference ranges are not reported, since discordance with absolute values may lead to misinterpretation of CBC data. Current Interpretive Data was last revised on 2017. Imm gran pct 0.6 % [facility] Comment: Interpretive Data Percent cell count reference ranges are not reported, since discordance with absolute values may lead to misinterpretation of CBC data. Current Interpretive Data was last revised on 2017. Lymphocyte pct 21.4 % [facility] Comment: Interpretive Data Percent cell count reference ranges are not reported, since discordance with absolute values may lead to misinterpretation of CBC data. Current Interpretive Data was last revised on 2017. Monocyte pct 13.7 % [facility] Comment: Interpretive Data Percent cell count reference ranges are not reported, since discordance with absolute values may lead to misinterpretation of CBC data. Current Interpretive Data was last revised on 2017. Eosinophil pct 3.2 % [facility] Comment: Interpretive Data Percent cell count reference ranges are not reported, since discordance with absolute values may lead to misinterpretation of CBC data. Current Interpretive Data was last revised on 2017. Basophil pct 0.8 % [facility] Comment: Interpretive Data Percent cell count reference ranges are not reported, since discordance with absolute values may lead to misinterpretation of CBC data. Current Interpretive Data was last revised on 2017. Blood 07/29/2024 11:0 1 AM WINDOWS 7 DEPLOYMENT LEAD 07/29/2024 11:34 AM WINDOWS 7 DEPLOYMENT LEAD us Jossie King MD LAB BLOOD ORDERABL ES Final Result [facility] [place] [address] * (ABNORMAL) CBC with auto differential (07/29/2024 11:01 AM WINDOWS 7 DEPLOYMENT LEAD) WBC 5.1 3.8 - 9.9 K/cumm Hgb 11.5(L) 13.0 - 17.5 g/dL [facility] Hct 34.4(L) 38.9 - 50.3 % [facility] Plt 208 150 - 400 K/cumm [facility] MPV 10.8 9.1 - 12.3 fL [facility] RBC 3.76(L) 4.30 - 5.80 M/cumm [facility] MCV 91.5 81.3 - 96.4 fL [facility] MCH 30.6 27.1 - 33.3 pg [facility] MCHC 33.4 32.3 - 35.7 g/dL [facility] RDW CV 14.3 11.1 - 14.9 % [facility] RDW SD 47.9 35.7 - 48.1 fL [facility] NRBC abs 0.00 0.00 - 0.01 K/cumm [facility] Blood 07/29/2024 11:0 1 AM WINDOWS 7 DEPLOYMENT LEAD 07/29/2024 11:34 AM WINDOWS 7 DEPLOYMENT LEAD Narrative [facility] - 07/29/2024 11:45 AM WINDOWS 7 DEPLOYMENT LEAD This lab is being obtained as part of a Kidney transplant evaluation, is time sensitive, and should only be drawn during the evaluation visit at [address] Jossie King MD LAB BLOOD ORDERABL ES Final Result Performing Organization Address [facility] de Phone Number [facility] [place] [address] * (ABNORMAL) CMV, IgG Blood (07/29/2024 11:01 AM WINDOWS 7 DEPLOYMENT LEAD) [facility] CMV IgG Positive( A) Negative Comment: [...] CMV infection. Blood 07/29/2024 11:0 1 AM WINDOWS 7 DEPLOYMENT LEAD 07/29/2024 11:33 AM WINDOWS 7 DEPLOYMENT LEAD Narrative [facility] - 07/29/2024 1:44 PM WINDOWS 7 DEPLOYMENT LEAD This lab is being obtained as part of a Kidney transplant evaluation, is time sensitive, and should only be drawn during the evaluation visit at [address] Jossie King MD LAB MICROBIOLOGY - GENERAL ORDERABLES Final Result Performing Organization Address [facility] de Phone Number [facility] [place] [address] * (ABNORMAL) Comprehensive metabolic panel (07/29/2024 11:01 AM WINDOWS 7 DEPLOYMENT LEAD) [facility] Sodium 136 135 - 145 mmol/L Potassium, pl 4.6 3.3 - 4.9 mmol/L [facility] Chloride 93(L) 97 - 110 mmol/L [facility] CO2 26 22 - 32 mmol/L [facility] Anion gap 17(H) 2 - 15 mmol/L [facility] BUN 65(H) 6 - 25 mg/dL [facility] Creatinine 8.07(H) 0.80 - 1.30 mg/dL [facility] Glucose 280(H) 70 - 199 mg/dL [facility] Comment: Interpretive Data Fasting glucose >/= [...] classification and Diagnosis of Diabetes Diabetes Care 2021; 46: S19-S40. Current interpretive data was last revised 2022. Calcium 9.4 8.5 - 10.3 mg/dL [facility] Bilirubin, total 0.3 0.1 - 1.2 mg/dL [facility] Protein, pl 7.2 6.5 - 8.5 g/dL [facility] Albumin 3.8 3.5 - 5.0 g/dL [facility] Alk phos 99 40 - 130 Units/L [facility] ALT 30 7 - 55 Units/L [facility] AST 31 10 - 50 Units/L [facility] Blood 07/29/2024 11:0 1 AM WINDOWS 7 DEPLOYMENT LEAD 07/29/2024 11:33 AM WINDOWS 7 DEPLOYMENT LEAD Narrative [facility] - 07/29/2024 12:10 PM WINDOWS 7 DEPLOYMENT LEAD This lab is being obtained as part of a Kidney transplant evaluation, is time sensitive, and should only be drawn during the evaluation visit at [facility] Lab. us Jossie King MD LAB BLOOD ORDERABL ES Final Result [facility] Department [place] [address] * Creatinine, urine, random (07/29/2024 11:01 AM WINDOWS 7 DEPLOYMENT LEAD) Creatinine Ur 167.1 mg/dL Comment: Interpretive Data No reference range established. Current interpretive data was last revised 2019. Urine 07/29/2024 11:0 1 AM WINDOWS 7 DEPLOYMENT LEAD 07/29/2024 11:32 AM WINDOWS 7 DEPLOYMENT LEAD Narrative [facility] - 07/29/2024 12:18 PM WINDOWS 7 DEPLOYMENT LEAD This lab is being obtained as part of a Kidney transplant evaluation, is time sensitive, and should only be drawn during the evaluation visit at [address] Lab[address] Jossie King MD LAB URINE ORDERABL ES Final Result Performing Organization Address [facility] Co de Phone Number [facility] Department [place] [address] * (ABNORMAL) Madiha-Morris virus (EBV) antibody panel Blood (07/29/2024 11:01 AM WINDOWS 7 DEPLOYMENT LEAD) [facility] EBV nuclear Ab Positive(A) Negative Comment:Indicates the presen ce of detectable IgG antibody to EBV Nuclear Antigen. EBV VCA IgG Positive(A) Negative [facility] Comment:Indicates the presen ce of antibody; 90% of the adult population will have been infected with EBV sometime in the past. EBV VCA IgM Negative Negative [facility] Comment:No detectable IgM an tibody to EBV-VCA. A negative result indicates no current infection with EBV. If clinical suspicion of acute EBV infection is present, testing should be repeated after one week. EBV interp Past Infection [facility] Blood 07/29/2024 11:0 1 AM WINDOWS 7 DEPLOYMENT LEAD 07/29/2024 11:33 AM WINDOWS 7 DEPLOYMENT LEAD Narrative [facility] - 07/29/2024 1:43 PM WINDOWS 7 DEPLOYMENT LEAD This lab is being obtained as part of a Kidney transplant evaluation, is time sensitive, and should only be drawn during the evaluation visit at [address] Lab[address] Jossie King MD LAB MICROBIOLOGY - GENERAL ORDERABLES Final Result Performing Organization Address City/[facility] Co de Phone Number [facility] Department [place] [address] * (ABNORMAL) Ferritin (07/29/2024 11:01 AM WINDOWS 7 DEPLOYMENT LEAD) [facility] Ferritin 761(H) 30 - 400 ng/mL Blood 07/29/2024 11:0 1 AM WINDOWS 7 DEPLOYMENT LEAD 07/29/2024 11:33 AM WINDOWS 7 DEPLOYMENT LEAD Narrative [facility] - 07/29/2024 12:10 PM WINDOWS 7 DEPLOYMENT LEAD This lab is being obtained as part of a Kidney transplant evaluation, is time sensitive, and should only be drawn during the evaluation visit at [address] Jossie King MD LAB BLOOD ORDERABL ES Final Result Performing Organization Address [facility] Co de Phone Number [facility] [place] [address] * Gamma GT (07/29/2024 11:01 AM WINDOWS 7 DEPLOYMENT LEAD) [facility] GGT 22 10 - 50 Units/L Blood 07/29/2024 11:0 1 AM WINDOWS 7 DEPLOYMENT LEAD 07/29/2024 11:33 AM WINDOWS 7 DEPLOYMENT LEAD Narrative [facility] 07/29/2024 12:40 PM WINDOWS 7 DEPLOYMENT LEAD This lab is being obtained as part of a Kidney transplant evaluation, is time sensitive, and should only be drawn during the evaluation visit at [address] Jossie King MD LAB BLOOD ORDERABL ES Final Result Performing Organization Address [facility] de Phone Number [facility] [place] [address] * HIV 1/2 Antibody plus p24 Antigen Blood (07/29/2024 11:01 AM WINDOWS 7 DEPLOYMENT LEAD) [facility] HIV 1/2 ab + p24 ag Nonreactive Nonreactive Comment:Nonreactive for HIV- 1 antigen and HIV-1/HIV-2 antibodies. No laboratory evidence of HIV infection. If acute HIV infection is suspected, consider testing for HIV-1 RNA. Current interpretive data was last revised on 22. Blood 07/29/2024 11:0 1 AM WINDOWS 7 DEPLOYMENT LEAD 07/29/2024 11:32 AM WINDOWS 7 DEPLOYMENT LEAD Narrative [facility] - 07/29/2024 12:13 PM WINDOWS 7 DEPLOYMENT LEAD This lab is being obtained as part of a Kidney transplant evaluation, is time sensitive, and should only be drawn during the evaluation visit at [address] Jossie King MD LAB MICROBIOLOGY - GENERAL ORDERABLES Final Result Performing Organization Address [facility] [place] [address] * (ABNORMAL) HSV 1 IgG Antibody Blood (07/29/2024 11:01 AM WINDOWS 7 DEPLOYMENT LEAD) HSV 1 IgG Reactive( A) Nonreactive Comment: Interpretive Data 1. Nonreactive: No detectable IgG antibody to HSV-1. 2. Equivocal: Presence or absence of detectable antibodies to HSV-1 cannot be determined and the test should be repeated. 3. Reactive: Indicates presence of detectable IgG antibody to HSV-1. Current interpretive data was last revised on 2016. Blood 07/29/2024 11:0 1 AM WINDOWS 7 DEPLOYMENT LEAD 07/29/2024 11:33 AM WINDOWS 7 DEPLOYMENT LEAD Narrative [facility] 07/29/2024 1:44 PM WINDOWS 7 DEPLOYMENT LEAD This lab is being obtained as part of a Kidney transplant evaluation, is time sensitive, and should only be drawn during the evaluation visit at [address] Jossie King MD LAB MICROBIOLOGY - GENERAL ORDERABLES Final Result Performing Organization Address [facility] de Phone Number [facility] [place] [address] * HSV 2 IgG Antibody Blood (07/29/2024 11:01 AM WINDOWS 7 DEPLOYMENT LEAD) Pathologist [facility] HSV 2 IgG Nonreactive Nonreactive Comment: Interpretive Data 1. Nonreactive: No detectable IgG antibody to HSV-2. 2. Equivocal: Presence or absence of detectable antibodies to HSV-2 cannot be determined and the test should be repeated. 3. Reactive: Indicates presence of detectable IgG antibody to HSV-2. Current interpretive data was last revised on 2022. Blood 07/29/2024 11:0 1 AM WINDOWS 7 DEPLOYMENT LEAD 07/29/2024 11:33 AM WINDOWS 7 DEPLOYMENT LEAD Narrative [facility] - 07/29/2024 1:44 PM WINDOWS 7 DEPLOYMENT LEAD This lab is being obtained as part of a Kidney transplant evaluation, is time sensitive, and should only be drawn during the evaluation visit at [address] Lab[address] Jossie King MD LAB MICROBIOLOGY - GENERAL ORDERABLES Final Result Performing Organization Address [facility] Co de Phone Number [facility] [place] [address] * (ABNORMAL) Hemoglobin A1c (07/29/2024 11:01 AM WINDOWS 7 DEPLOYMENT LEAD) [facility] Hgb A1C 9.0(H) 4.0 - 5.6 % Estimated Average Glucose 212 mg/dL [facility] Comment: The ADA recommends reporting an estimated Average Glucose (eAG) with all Hemoglobin A1c results using the equation derived from a study of 507 normal and diabetic adults. ??Minority populations were underrepresented and children were not included. ?? (Diabetes Care 2020; 43(S1): S66-S76). ??The eAG is not equivalent to a fasting glucose. Blood 07/29/2024 11:0 1 AM WINDOWS 7 DEPLOYMENT LEAD 07/29/2024 11:34 AM WINDOWS 7 DEPLOYMENT LEAD Narrative [facility] - 07/29/2024 11:53 AM WINDOWS 7 DEPLOYMENT LEAD This lab is being obtained as part of a Kidney transplant evaluation, is time sensitive, and should only be drawn during the evaluation visit at [address] Lab[address] Jossie King MD LAB BLOOD ORDERABL ES Final Result Performing Organization Address [facility] Co de Phone Number [facility] [place] [address] * Hepatitis B core antibody, total Blood (07/29/2024 11:01 AM WINDOWS 7 DEPLOYMENT LEAD) [facility] Hep B core IgG/IgM Nonreactive Nonreactive Blood 07/29/2024 11:0 1 AM WINDOWS 7 DEPLOYMENT LEAD 07/29/2024 11:32 AM WINDOWS 7 DEPLOYMENT LEAD Narrative [facility] - 07/29/2024 12:47 PM WINDOWS 7 DEPLOYMENT LEAD This lab is being obtained as part of a Kidney transplant evaluation, is time sensitive, and should only be drawn during the evaluation visit at [address] Lab[address] Jossie King MD LAB MICROBIOLOGY - GENERAL ORDERABLES Final Result Performing Organization Address [facility] de Phone Number [facility] [place] [address] * Hepatitis B surface antibody (immune status) Blood (07/29/2024 11:01 AM WINDOWS 7 DEPLOYMENT LEAD) HBsAb (immune status) Reactive Comment:This result is consi stent with immunity to Hepatitis B Virus when used in the setting of routine screening. Current interpretive data was last revised on 22 Blood 07/29/2024 11:0 1 AM WINDOWS 7 DEPLOYMENT LEAD 07/29/2024 11:32 AM WINDOWS 7 DEPLOYMENT LEAD Narrative [facility] 07/29/2024 12:47 PM WINDOWS 7 DEPLOYMENT LEAD This lab is being obtained as part of a Kidney transplant evaluation, is time sensitive, and should only be drawn during the evaluation visit at [address] Jossie King MD LAB MICROBIOLOGY - GENERAL ORDERABLES Final Result Performing Organization Address [facility] de Phone Number [facility] [place] [address] * Hepatitis B Surface Antigen Blood (07/29/2024 11:01 AM WINDOWS 7 DEPLOYMENT LEAD) HepBsAg Nonreactive Nonreactive Blood 07/29/2024 11:0 1 AM WINDOWS 7 DEPLOYMENT LEAD 07/29/2024 11:32 AM WINDOWS 7 DEPLOYMENT LEAD Narrative [facility] - 07/29/2024 12:47 PM WINDOWS 7 DEPLOYMENT LEAD This lab is being obtained as part of a Kidney transplant evaluation, is time sensitive, and should only be drawn during the evaluation visit at [address] Jossie King MD LAB MICROBIOLOGY - GENERAL ORDERABLES Final Result Performing Organization Address [facility] [facility] Co de Phone Number [facility] [place] [address] * Hepatitis C antibody Blood (07/29/2024 11:01 AM WINDOWS 7 DEPLOYMENT LEAD) Pathologist [facility] [place] Hep C Ab Nonreactive Nonreactive Comment:Antibodies to HCV no t detected. Does NOT exclude the possibility of recent exposure to HCV. Current interpretive data was last revised on 22 Blood 07/29/2024 11:0 1 AM WINDOWS 7 DEPLOYMENT LEAD 07/29/2024 11:32 AM WINDOWS 7 DEPLOYMENT LEAD Narrative [facility] - 07/29/2024 12:47 PM WINDOWS 7 DEPLOYMENT LEAD This lab is being obtained as part of a Kidney transplant evaluation, is time sensitive, and should only be drawn during the evaluation visit at [address] Jossie King MD LAB MICROBIOLOGY - GENERAL ORDERABLES Final Result Performing Organization Address [facility] Co de Phone Number [facility] [place] [address] * (ABNORMAL) Iron profile w/ IBC (07/29/2024 11:01 AM WINDOWS 7 DEPLOYMENT LEAD) [facility] Iron 62 50 - 150 mcg/dL TIBC 208(L) 250 - 400 mcg/dL [facility] Transferrin saturation 30 20 - 50 % [facility] Blood 07/29/2024 11:0 1 AM WINDOWS 7 DEPLOYMENT LEAD 07/29/2024 11:33 AM WINDOWS 7 DEPLOYMENT LEAD Narrative [facility] - 07/29/2024 12:10 PM WINDOWS 7 DEPLOYMENT LEAD This lab is being obtained as part of a Kidney transplant evaluation, is time sensitive, and should only be drawn during the evaluation visit at [address] Jossie King MD LAB BLOOD ORDERABL ES Final Result Performing Organization Address [facility] Co de Phone Number [facility] [place] [address] * (ABNORMAL) Lipid panel (07/29/2024 11:01 AM WINDOWS 7 DEPLOYMENT LEAD) [facility] Cholesterol 114 30 - 199 mg/dL Comment: [...] on 2018. Triglycerides 66 <=149 mg/dL [facility] Comment: Interpretive Data Ages < or [...] revised on 2018. HDL 29(L) >=40 mg/dL [facility] Comment: Interpretive Data Ages < or [...] on 2018. LDL, calculated 71 <=129 mg/dL [facility] Comment: Interpretive Data Ages < or [...] revised on 2024. Non-HDL Cholesterol 85 mg/dL [facility] Comment: Interpretive Data Ages < or [...] last revised on 2018. Chol/HDL ratio 4 [facility] Blood 07/29/2024 11:0 1 AM WINDOWS 7 DEPLOYMENT LEAD 07/29/2024 11:33 AM WINDOWS 7 DEPLOYMENT LEAD Narrative [facility] - 07/29/2024 12:10 PM WINDOWS 7 DEPLOYMENT LEAD This lab is being obtained as part of a Kidney transplant evaluation, is time sensitive, and should only be drawn during the evaluation visit at [address] Jossie King MD LAB BLOOD ORDERABL ES Final Result Performing Organization Address [facility] de Phone Number [facility] [place] [address] * (ABNORMAL) PTH (07/29/2024 11:01 AM WINDOWS 7 DEPLOYMENT LEAD) [facility] PTH 444(H) 15 - 65 pg/mL Blood 07/29/2024 11:0 1 AM WINDOWS 7 DEPLOYMENT LEAD 07/29/2024 11:34 AM WINDOWS 7 DEPLOYMENT LEAD Narrative [facility] - 07/29/2024 12:02 PM WINDOWS 7 DEPLOYMENT LEAD This lab is being obtained as part of a Kidney transplant evaluation, is time sensitive, and should only be drawn during the evaluation visit at [address] Jossie King MD LAB BLOOD ORDERABL ES Final Result Performing Organization Address [facility] de Phone Number [facility] Department [place] [address] * (ABNORMAL) aPTT (07/29/2024 11:01 AM WINDOWS 7 DEPLOYMENT LEAD) [facility] aPTT 61(H) 28 - 38 sec Comment: Interpretive Data Heparin therapeutic range: 66.0 - 100.0 seconds. Range based on correlation with therapeutic heparin activity range of 0.3 - 0.7 Units/mL. Current interpretive data was last revised on 2023. Blood 07/29/2024 11:0 1 AM WINDOWS 7 DEPLOYMENT LEAD 07/29/2024 11:32 AM WINDOWS 7 DEPLOYMENT LEAD Narrative [facility] - 07/29/2024 11:42 AM WINDOWS 7 DEPLOYMENT LEAD This lab is being obtained as part of a Kidney transplant evaluation, is time sensitive, and should only be drawn during the evaluation visit at [address] Lab[address] Jossie King MD LAB BLOOD ORDERABL ES Final Result Performing Organization Address [facility] de Phone Number [facility] [place] [address] * (ABNORMAL) Phosphorus (07/29/2024 11:01 AM WINDOWS 7 DEPLOYMENT LEAD) [facility] Phosphorus, pl 5.1(H) 2.3 - 4.5 mg/dL Blood 07/29/2024 11:0 1 AM WINDOWS 7 DEPLOYMENT LEAD 07/29/2024 11:33 AM WINDOWS 7 DEPLOYMENT LEAD Narrative [facility] 07/29/2024 12:10 PM WINDOWS 7 DEPLOYMENT LEAD This lab is being obtained as part of a Kidney transplant evaluation, is time sensitive, and should only be drawn during the evaluation visit at [address] Lab[address] Jossie King MD LAB BLOOD ORDERABL ES Final Result Performing Organization Address [facility] Co de Phone Number [facility] [place] [address] * Protein, urine, random (07/29/2024 11:01 AM WINDOWS 7 DEPLOYMENT LEAD) [facility] Protein, ur, quant 121.2 mg/dL Comment: Interpretive Data No reference range established. Current interpretive data was last revised 2019. Urine 07/29/2024 11:0 1 AM WINDOWS 7 DEPLOYMENT LEAD 07/29/2024 11:32 AM WINDOWS 7 DEPLOYMENT LEAD Narrative [facility] - 07/29/2024 12:18 PM WINDOWS 7 DEPLOYMENT LEAD This lab is being obtained as part of a Kidney transplant evaluation, is time sensitive, and should only be drawn during the evaluation visit at [address] Lab[address] Jossie King MD LAB URINE ORDERABL ES Final Result Performing Organization Address [facility] de Phone Number [facility] [place] [address] * (ABNORMAL) Protime-INR (07/29/2024 11:01 AM WINDOWS 7 DEPLOYMENT LEAD) PT 50.6(H) 9.7 - 13.0 sec INR 4.54(H) 0.90 - 1.20 [facility] Comment: Interpretive data Oral anticoagulant therapeutic ranges: Venous thromboembolism prophylaxis or treatment: 2.0-3.0 CARDIOLOGY Standard range: 2.0-3.0 High-intensity range: 2.5-3.5 Refer to indication-specific guidelines for appropriate target ranges for prosthetic heart valve replacement. Current interpretive data was last revised on 2019. Blood 07/29/2024 11:0 1 AM WINDOWS 7 DEPLOYMENT LEAD 07/29/2024 11:32 AM WINDOWS 7 DEPLOYMENT LEAD Narrative [facility] - 07/29/2024 11:42 AM WINDOWS 7 DEPLOYMENT LEAD This lab is being obtained as part of a Kidney transplant evaluation, is time sensitive, and should only be drawn during the evaluation visit at [address] Lab. Jossie King MD LAB BLOOD ORDERABL ES Final Result Performing Organization Address [facility] Co de Phone Number [facility] [place] [address] * RPR Blood (07/29/2024 11:01 AM WINDOWS 7 DEPLOYMENT LEAD) RPR Nonreactive Nonreactive Blood 07/29/2024 11:0 1 AM WINDOWS 7 DEPLOYMENT LEAD 07/29/2024 11:33 AM WINDOWS 7 DEPLOYMENT LEAD Narrative [facility] 07/29/2024 12:34 PM WINDOWS 7 DEPLOYMENT LEAD This lab is being obtained as part of a Kidney transplant evaluation, is time sensitive, and should only be drawn during the evaluation visit at [address] Jossie King MD LAB MICROBIOLOGY - GENERAL ORDERABLES Final Result Performing Organization Address [facility] de Phone Number [facility] [place] [address] * Varicella Zoster IgG antibody Blood (07/29/2024 11:01 AM WINDOWS 7 DEPLOYMENT LEAD) Pathologist [facility] [place] VZV IgG Reactive Reactive Comment:Reactive: Results diego ggest response to immunization or prior exposure to the virus. Blood 07/29/2024 11:0 1 AM WINDOWS 7 DEPLOYMENT LEAD 07/29/2024 11:33 AM WINDOWS 7 DEPLOYMENT LEAD Narrative [facility] 07/29/2024 1:45 PM WINDOWS 7 DEPLOYMENT LEAD This lab is being obtained as part of a Kidney transplant evaluation, is time sensitive, and should only be drawn during the evaluation visit at [address] Result [facility] Jossie King MD LAB MICROBIOLOGY - GENERAL ORDERABLES Final Result Performing Organization Address [facility] de Phone Number [facility] [place] [address] * (ABNORMAL) Uric acid (07/29/2024 11:01 AM WINDOWS 7 DEPLOYMENT LEAD) Pathologist [facility] [place] Uric acid 2.0(L) 3.0 - 8.0 mg/dL Blood 07/29/2024 11:0 1 AM WINDOWS 7 DEPLOYMENT LEAD 07/29/2024 11:33 AM WINDOWS 7 DEPLOYMENT LEAD Narrative [facility] 07/29/2024 12:10 PM WINDOWS 7 DEPLOYMENT LEAD This lab is being obtained as part of a Kidney transplant evaluation, is time sensitive, and should only be drawn during the evaluation visit at [address] Jossie King MD LAB BLOOD ORDERABL ES Final Result Performing Organization Address [facility] de Phone Number [facility] [place] [address] * PSA screen (07/29/2024 11:01 AM WINDOWS 7 DEPLOYMENT LEAD) PSA-Total 0.55 <=3.90 ng/mL Comment: Interpretive Data ?AGE ? SEX ?REFERENCE INTERVAL 0 minutes-150 years ?Female ?None 0 minutes-49 years ? Male ?None ? 50-59 years ? Male ?0-3.90 ? 60-69 years ? Male ?0-5.40 ? 70-79 years ? Male ?0-6.20 ? 80-150 years ?Male ?0-6.20 The [employer] PSA Total assay procedure was used. Results from different manufacturers or methods may not be comparable. Serial testing should be performed using the same method. Current interpretive data last revised 21. Blood 07/29/2024 11:0 1 AM WINDOWS 7 DEPLOYMENT LEAD 07/29/2024 11:33 AM WINDOWS 7 DEPLOYMENT LEAD Narrative [facility] - 07/29/2024 12:39 PM WINDOWS 7 DEPLOYMENT LEAD This lab is being obtained as part of a Kidney transplant evaluation, is time sensitive, and should only be drawn during the evaluation visit at [facility] 3C Lab. Jossie King MD LAB BLOOD ORDERABL ES Final Result Performing Organization Address [facility] Co de Phone Number [facility] [place] [address] * LR HLA Typing (Class I and Class II) (07/29/2024 11:01 AM WINDOWS 7 DEPLOYMENT LEAD) r-SSO [facility] [place] A*03 [facility] [...] 07/30/24 [facility] Blood 07/29/2024 11:0 1 AM WINDOWS 7 DEPLOYMENT LEAD 08/02/2024 9:03 AM WINDOWS 7 DEPLOYMENT LEAD Narrative [facility] - 08/02/2024 9:03 AM WINDOWS 7 DEPLOYMENT LEAD DNA was extracted from whole blood or buccal cell specimens, and relevant genomic regions were amplified by polymerase chain reactions (PCR). HLA typing was performed on PCR amplicons using reverse sequence-specific oligonucleotide (r-SSO) and/or sequence-specific primers (SSP) based techniques. r-SSO and SSP are FDA approved as IVD tests and validated by the [facility] HLA Laboratory. Testing performed at the HLA Laboratory, [address], 5th floor, [facility], [place], [address]. [facility] # [id number]. Dorothy Meade, Ph.D., Director Of Occupational Health, HLA Laboratory Rell Samuels M.D., Ph.D., Patient Safety Manager, HLA Laboratory Licha Nieto, Ph.D., [place] Patient Safety Manager, Clinical Laboratories Current methodology comment last revised on 04/25/17. Jossie King MD LAB BLOOD ORDERABL ES Final Result Performing Organization Address City/[facility]/ZIP Co de Phone Number [facility] * Collection Task for HLA Typing 1 (07/29/2024 11:01 AM WINDOWS 7 DEPLOYMENT LEAD) HLA Class I DNA (ABC) Recipient Received Blood 07/29/2024 11:0 1 AM WINDOWS 7 DEPLOYMENT LEAD 07/29/2024 11:56 AM WINDOWS 7 DEPLOYMENT LEAD Jossie King MD LAB BLOOD ORDERABL ES Final Result Performing Organization Address [facility] Co de Phone Number [facility] [place] [address] * Collection Task for HLA Typing 2, Patient (07/29/2024 11:01 AM WINDOWS 7 DEPLOYMENT LEAD) HLA Class II DNA (DR, DQ, DP) Recipient Received Blood 07/29/2024 11:0 1 AM WINDOWS 7 DEPLOYMENT LEAD 07/29/2024 11:56 AM WINDOWS 7 DEPLOYMENT LEAD Jossie King MD LAB BLOOD ORDERABL ES Final Result Performing Organization Address City/[facility] Co de Phone Number [facility] [place] [address] * HLA Antibody Screen - SAB (Class I and Class II) (07/29/2024 11:01 AM WINDOWS 7 DEPLOYMENT LEAD) Class I Treatment EDTA [facility] Class I [...] DR52 [facility] Blood 07/29/2024 11:0 1 AM WINDOWS 7 DEPLOYMENT LEAD 08/02/2024 9:46 AM WINDOWS 7 DEPLOYMENT LEAD Narrative [facility] - 08/02/2024 9:46 AM WINDOWS 7 DEPLOYMENT LEAD Single-antigen HLA antibody screen is performed on serum samples using a method developed and validated by the [facility] HLA laboratory based on an FDA-approved IVD kit ([employer] Single-Antigen, [employer], [facility] [place]). All patient serum samples are pretreated with EDTA before the screen to prevent complement interference. Additional serum treatments, such as adsorption and DTT treatment, may be performed as indicated. ??Interpretive comments: Low risk: MFI [id number]. Moderate risk: MFI [id number]. Increased risk: MFI >/= 5000. The presence [...] antigens to avoid. Testing performed at the HLA Laboratory, [facility], 5th floor, [facility], [place], [address]. [facility] # [id number]. Dorothy Meade, Ph.D., Director Of Occupational Health, HLA Laboratory Rell Samuels M.D., Ph.D., Patient Safety Manager, HLA Laboratory Licha Nieto, Ph.D., CLIA Patient Safety Manager, Clinical Laboratories Current methodology and interpretive comments last revised on 09/15/2022. Jossie King MD LAB BLOOD ORDERABL ES Final Result Performing Organization Address [facility] Co de Phone Number [facility] * Collection Task for HLA Antibody Screen (07/29/2024 11:01 AM WINDOWS 7 DEPLOYMENT LEAD) HLA Antibody Screen By Single Antigen Received Blood 07/29/2024 11:0 1 AM WINDOWS 7 DEPLOYMENT LEAD 07/29/2024 11:56 AM WINDOWS 7 DEPLOYMENT LEAD Jossie King MD LAB BLOOD ORDERABL ES Final Result Performing Organization Address [facility] Co de Phone Number [facility] [place] [address] * (ABNORMAL) Urinalysis, microscopic only (07/29/2024 10:53 AM WINDOWS 7 DEPLOYMENT LEAD) WBC, ur 21-50(A) 0 - 5 /HPF RBC, ur >50(A) 0 - 2 /HPF [facility] Epithelial cells, squamous, ur 1-5 0 - 5 /HPF [facility] Bacteria, ur Trace(A) [facility] Mucous, ur Present(A) [facility] Hyaline casts, ur 1-5 0 - 10 /LPF [facility] Urine 07/29/2024 10:5 3 AM WINDOWS 7 DEPLOYMENT LEAD 07/29/2024 11:27 AM WINDOWS 7 DEPLOYMENT LEAD Jossie King MD LAB URINE ORDERABL ES Final Result Performing Organization Address City/[facility]/ZIP Co de Phone Number [facility] [place] [address] * (ABNORMAL) Oxalate (oxalic acid) (07/29/2024 10:53 AM WINDOWS 7 DEPLOYMENT LEAD) Oxalate 12.3(H) <=2.0 mcmol/L [facility] Comment: High value suggestive of Primary Hyperoxaluria. However, if the patient has chronic kidney disease (GFR<30 mL/min/1.73m2), plasma oxalate values up to 30 mcmol/L can be normal. The [facility]al[facility] is available to review case details and answer any questions regarding interpretation ([email or web address]; [phone]) ADDITIONAL INFORMATION This test has been modified from the corporate claims examiner's instructions. Its performance characteristics were determined by [facility] in a manner consistent with CLIA requirements. This test has not been cleared or approved by the U.S. Food and Drug Administration. Test Performed by: [facility] [address] [address] Market Development Director: Jairo Higgins Ph.D.; CLIA# [id number] Blood 07/29/2024 10:5 3 AM WINDOWS 7 DEPLOYMENT LEAD 07/29/2024 11:37 AM WINDOWS 7 DEPLOYMENT LEAD us Jossie King MD LAB BLOOD ORDERABL ES Final Result [facility] [place] [address] [place] [facility] * (ABNORMAL) Urinalysis reflex to microscopic (07/29/2024 10:53 AM WINDOWS 7 DEPLOYMENT LEAD) Color, ur Yellow Yellow Clarity, ur Cloudy(A) Clear [facility] Specific gravity, ur 1.022 1.003 - 1.030 [facility] pH, urine 6.0 [facility] Comment: Interpretive Data ? Urine pH is affected by diet, medications, systemic acid-base disturbances, and renal tubular function. ??pH may affect urinary stone formation. ??For example, urine pH below 6.0 may help reduce the tendency for calcium phosphate stones and pH greater than 6.0 may reduce the tendency for uric acid stone formation. Source: [facility] Current Interpretive Data was last revised on 2017 Protein, ur ql 2+(A) Negative [facility] Glucose, ur ql 4+(A) Negative [facility] Ketones, ur Negative Negative [facility] Bilirubin, ur Negative Negative [facility] Blood, ur 3+(A) Negative [facility] Urobilinogen, ur <2.0 <2.0 mg/dL [facility] Nitrite, ur Negative Negative [facility] Leukocyte esterase, ur 2+(A) Negative [facility] UA reflex comment Reflex to microscopic UA will be performed. [facility] Urine 07/29/2024 10:5 3 AM WINDOWS 7 DEPLOYMENT LEAD 07/29/2024 11:27 AM WINDOWS 7 DEPLOYMENT LEAD Narrative [facility] - 07/29/2024 11:29 AM WINDOWS 7 DEPLOYMENT LEAD This lab is being obtained as part of a Kidney transplant evaluation, is time sensitive, and should only be drawn during the evaluation visit at [facility] Lab. us Jossie King MD LAB URINE ORDERABL ES Final Result [facility] [place] [address] documented in this encounter Visit Diagnoses Diagnosis End stage renal disease (CMS/HCC) (HCC) End stage renal disease ESRD (end stage renal disease) (CMS/HCC) (HCC) End stage renal disease documented in this encounter Care Teams Junior Paralegal Relationship Specialty Start Date End Date Aditya Castro MD [address] [facility] [place] [address] PCP - General 10/17/19 Alondra Lambert, RN [address] [facility] [address] [place] [address] [place] Machine Operator 03/06/24 Hamlet Ortega Jr., MD [address] [place] [address] Consulting Physician Cardiovascular Disease 05/10/24 documented as of this encounter
--- OUTSIDE RECORDS SUMMARY | 2024-08-18 13:03 | XMS_ITS | Encounter Summary ---
Author Organization [facility] Healthcare Address [address] [place] [address] Care Team Providers Care Repair Servicer Name Role Phone Aditya Castro MD Primary Care Provider [phone] Alondra Lambert RN Unavailable [phone] Shannon Brock MD, Hamlet P. Unavailable [phone] Leandro Reyes MD Unavailable [phone] Encounter Details Date Type Department Care Team (Late st Contact Info) Description 08/06/2024 Documentation [facility] Transplant Kidney [address] [facility] [address] [phone] [place] [address] Alondra Lambert, RN [address] [facility] [address] [place] [address] Social History Tobacco Use Types Packs/Day Years [...] materials from doctor or pharmacy Never 12/01/2023 [facility] Utilities Answer Date Recorded In the [...] week 08/01/2024 How often do you attend congregation or yarsani serv ices? Never 08/01/2024 Do you belong to any clubs o r organizations such as congregation groups, unions, fraternal or athletic groups, or [...] place to sleep or slept in a [place] (including now)? No 10/16/2023 Housing Stability Vital Sign Answer Rubens e Recorded In the last 12 months, was t here a time when you were not able to pay the mortgage or rent on time? No 08/01/2024 In the past 12 months, how m any times have you moved where you were living? 1 08/01/2024 At any time in the past [address] [facility], were you homeless or living in a [place] (including now)? No 08/01/2024 Personal Safety Answer Date Recorded Have you ever been in or are you currently in a harmful physical or emotional relationship or is someone making you feel afraid or unsafe? 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 ARCHITECT Gender Identity Not on file Sexual Orientation Not on file documented as of this encounter Plan of Treatment Not on file documented as of this encounter Visit Diagnoses Not on filedocumented in this encounter Care Teams Repair Servicer Relationship Specialty Start Date End Date Aditya Castro MD [address] [facility] [place] [address] PCP - General 10/17/19 Alondra Lambert, RN [address] [address] Electronics Technician 03/06/24 Hamlet Ortega Jr., MD [address] [place] [address] Consulting Physician Cardiovascular Disease 05/10/24 Leandro Reyes MD [address] [facility] [address] [place] [address] Consulting Physician Nephrology 07/30/24 documented as of this encounter
--- OUTSIDE RECORDS SUMMARY | 2024-08-18 13:03 | XMS_ITS | Encounter Summary ---
Author Organization [facility] Healthcare Address [address] [place] [address] Care Team Providers Care Organizational Development Manager Name Role Phone Aditya Castro MD Primary Care Provider [phone] Alondra Lambert RN Unavailable [phone] Shannon Brock MD, Hamlet P. Unavailable [phone] Leandro Reyes MD Unavailable [phone] Encounter Details Date Type Department Care Team (Late st Contact Info) Description 07/30/2024 Telephone [facility] Transplant Kidney [address] [facility] [address] Mailstop [phone] [place] [address] Alondra Lambert RN [address] [facility] [address] [place] [address] [id number] Social History Tobacco Use Types Packs/Day Years [...] materials from doctor or pharmacy Never 12/01/2023 [facility] Utilities Answer Date Recorded In [...] often do you attend chur ch or episcopal services? 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 We discussed challenging his dry weight and then bringing him back to repeat the walk study and do a repeat walk study. He is working on getting the colonoscopy set up. He will also need a chest x-ray. I mentionedthat his INR was high and asked who managed his Coumadin. His high wire artist takes care of this. Willmail out letter today summarizing remaining things needed to complete evaluation. Called and spoke with nurse at dialysis center. Mentioned that we felt he was in volume overload. Read the CT report to her. Will discuss this with nephrology. STRIAL WASTE INSPECTOR documented in this encounter Plan of Treatment Not on file documented as of this encounter Visit Diagnoses Not on filedocumented in this encounter Care Teams Organizational Development Manager Relationship Specialty Start Date End Date Aditya Castro MD [address] [facility] [place] [address] PCP - General 10/17/19 Alondra Lambert RN [address] [address] Steam Crane Operator 03/06/24 Hamlet Ortega Jr., MD [address] [place] [address] Consulting Physician Cardiovascular Disease 05/10/24 Leandro Reyes MD [facility] [place] [address] Consulting Physician Nephrology 07/30/24 documented as of this encounter
--- OUTSIDE RECORDS SUMMARY | 2024-08-18 13:03 | XMS_ITS | Encounter Summary ---
Author Organization [facility] Healthcare Address [address] [place] [address] Care Team Providers Care Paraprofessional Interpreter Name Role Phone Aditya Castro MD Primary Care Provider [phone] Alondra Lambert RN Unavailable [phone] Shannon Brock MD, Hamlet P. Unavailable [phone] Encounter Details Date Type Department Care Team (Late st Contact Info) Description 07/26/2024 Orders Only [facility] and [facility] Transplant Kidney [address] [address] Mailstop [phone] [place], [place] [id number] Alondra Lambert, RN [address] [facility] [address] [place] [id number] ESRD (end stage renal disease) ([facility]/HCC) (HCC) (Primary Dx) Social History Tobacco Use Types [...] materials from doctor or pharmacy Never 12/01/2023 [facility] Utilities Answer Date Recorded In the [...] often do you attend chur ch or caodaism services? 1 to 4 times per year 10/16/2023 Do you belong to any clubs o r organizations such as sikhism groups, unions, fraternal or athletic groups, or [...] place to sleep or slept in a group home (including now)? No 10/16/2023 Personal Safety Answer Date Recorded Have you ever been in or are you currently in a harmful physical or emotional relationship or is someone making you feel afraid or unsafe? 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 Male 3:42 AM VENDING ENTERPRISES SUPERVISOR Gender Identity Not on file Sexual Orientation Not on file documented as of this encounter Plan of Treatment Not on file documented as of this encounter Results * (ABNORMAL) Oxalate (oxalic acid) (07/29/2024 10:53 AM VENDING ENTERPRISES SUPERVISOR) Oxalate 12.3(H) <=2.0 mcmol/L [facility] Comment: High value suggestive of Primary Hyperoxaluria. However, if the patient has chronic kidney disease (GFR<30 mL/min/1.73m2), plasma oxalate values up to 30 mcmol/L can be normal. The [facility]oxaluria [facility] is available to review case details and answer any questions regarding interpretation ([email or web address] [phone]) ADDITIONAL INFORMATION This test has been modified from the sweatband drummer's instructions. Its performance characteristics were determined by [facility] in a manner consistent with CLIA requirements. This test has not been cleared or approved by the U.S. Food and Drug Administration. Test Performed by: [address] [address] Production Recorder: Jairo Higgins Ph.D.; CLIA# [id number] Blood 07/29/2024 10:5 3 AM VENDING ENTERPRISES SUPERVISOR 07/29/2024 11:37 AM VENDING ENTERPRISES SUPERVISOR us Jossie King MD LAB BLOOD ORDERABL ES Final Result [facility] Department [place] [address] [place] [facility] documented in this encounter Visit Diagnoses Diagnosis ESRD (end stage renal disease) (CMS/HCC) (HCC)- Primary End stage renal disease documented in this encounter Care Teams Paraprofessional Interpreter Relationship Specialty Start Date End Date Aditya Castro MD [address] [facility] [place] [address] PCP - General 10/17/19 Alondra Lambert, RN [address] [facility] [address] [place] [address] Lidar Scientist 03/06/24 Hamlet Ortega Jr., MD [address] [place] [address] Consulting Physician Cardiovascular Disease 05/10/24 documented as of this encounter
--- OUTSIDE RECORDS SUMMARY | 2024-08-18 13:03 | XMS_ITS | Encounter Summary ---
Author Organization [facility] Healthcare Address [address] [place] [address] Care Team Providers Care Carpet Or Rug Layer Helper Name Role Phone Aditya Castro MD Primary Care Provider [phone] Alondra Lambert RN Unavailable [phone] Shannon Brock MD, Hamlet Gordon Unavailable [phone] Encounter Details Date Type Department Care Team (Late st Contact Info) Description 07/22/2024 Telephone [facility] Transplant Kidney [address] [address] Mailstop [phone] [place] [address] Chris Richard Social History Tobacco Use Types Packs/Day Years [...] In the past 12 months has e [employer], gas, oil, or water company threatened to [...] often do you attend chur ch or restoration services? 1 to 4 times per year 10/16/2023 Do you belong to any clubs o r organizations such as advent groups, unions, fraternal or athletic groups, or [...] in a penitentiary (including now)? No 10/16/2023 Personal Safety Answer Date Recorded Have you ever been in or are you currently in a harmful physical or emotional relationship or is someone making you feel afraid or unsafe? 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 ERS COMPENSATION CLAIMS SPECIALIST documented in this encounter Plan of Treatment Not on file documented as of this encounter Visit Diagnoses Not on filedocumented in this encounter Care Teams Carpet Or Rug Layer Helper Relationship Specialty Start Date End Date Aditya Castro MD [address] [facility] [place] [address] PCP - General 10/17/19 Alondra Lambert, RN [address] [facility] [address] [place] [address] Gang Hemstitching Machine Operator 03/06/24 Hamlet Ortega Jr., MD [address] [place] [address] Consulting Physician Cardiovascular Disease 05/10/24 documented as of this encounter
--- OUTSIDE RECORDS SUMMARY | 2024-08-18 13:03 | XMS_ITS | Encounter Summary ---
Author Organization [facility] Healthcare Address [address] [place] [address] Care Team Providers Care Border Police Name Role Phone Aditya Castro MD Primary Care Provider [phone] Alondra Lambert RN Unavailable [phone] Shannon Brock MD, Hamlet Gordon Unavailable [phone] Encounter Details Date Type Department Care Team (Late st Contact Info) Description 07/26/2024 Telephone [facility] Transplant Kidney [address] [address] Mailstop [phone] [place] [address] Elsie Cornejo Social History Tobacco Use Types Packs/Day Years [...] materials from doctor or pharmacy Never 12/01/2023 [facility] Utilities Answer Date Recorded In the past 12 months has [employer], gas, oil, or water [employer] threatened to shut off services in your [...] often do you attend chur ch or mandaen services? 1 to 4 times per year 10/16/2023 Do you belong to any clubs o r organizations such as samaritan groups, unions, fraternal or athletic groups, or [...] on file Legal Sex Male 3:42 AM RIVERBOAT CAPTAIN Gender Identity Not on file Sexual Orientation Not on file documented as of this encounter Miscellaneous Notes * Telephone Encounter - Elsie Cornejo - 07/26/2024 2:35 PM CST Received call from [facility] needing to speak with nurse coordinator regarding: [facility] called and this is not there patient if needed call back [phone] Patient needs addressed. No follow-up needed. RBOAT CAPTAIN documented in this encounter Plan of Treatment Not on file documented as of this encounter Visit Diagnoses Not on filedocumented in this encounter Care Teams Border Police Relationship Specialty Start Date End Date Aditya Castro MD [address] [facility] [place] [address] PCP - General 10/17/19 Alondra Lambert, RN [address] [facility] [address] [place] [address] Minute Clerk For Basic Traffic 03/06/24 Hamlet Ortega Jr., MD [address] [place] [address] Consulting Physician Cardiovascular Disease 05/10/24 documented as of this encounter
--- OUTSIDE RECORDS SUMMARY | 2024-08-18 13:03 | XMS_ITS | Encounter Summary ---
Author Organization [facility] Healthcare Address [address] [place] [address] Care Team Providers Care Meteorological Engineer Name Role Phone Aditya Castro MD Primary Care Provider [phone] Alondra Lambert RN Unavailable [phone] Shannon Brock MD, Hamlet Gordon Unavailable [phone] Encounter Details Date Type Department Care Team (Late st Contact Info) Description 07/29/2024 9:00 AM TOOL AND DIE REPAIRER Social Work [facility] Counts include [facility] beds at the [facility], 8th Floor, [place] [address] Social History Tobacco Use Types Packs/Day Years [...] materials from doctor or pharmacy Never 12/01/2023 [facility] Utilities Answer Date Recorded In [...] week 08/01/2024 How often do you attend voodoo or pentecostalism serv ices? Never 08/01/2024 Do you belong to any clubs o r organizations such as voodoo groups, unions, fraternal or athletic groups, or [...] place to sleep or slept in a longterm (including now)? No 10/16/2023 Housing Stability Vital Sign Answer Rubens e Recorded In the last 12 months, was t here a time when you were not able to pay the mortgage or rent on time? No 08/01/2024 In the past 12 months, how m any times have you moved where you were living? 1 08/01/2024 At any time in the past 12 m [facility], were you homeless or living in a longterm (including now)? No 08/01/2024 Personal Safety Answer Date Recorded Have you ever been in or are you currently in a harmful physical or emotional relationship or is someone making you feel afraid or unsafe? 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 Male 3:42 AM TOOL AND DIE REPAIRER Gender Identity Not on file Sexual Orientation Not on file documented as of this encounter Progress Notes * Sera Callahan LCSW - 07/29/2024 9:00 AM CST Initial Psychosocial Assessment for Kidney Transplant Patient Information Name: Juvenal Daigle JrSharath : 1970 Assessment date: 08/01/2024 Type of transplant: Kidney Evaluation Method: Outpatient Present at assessment: Patient Demographics Race: White Ethnicity: non- [place] Citizen: Yes Social History Support System: Children, Adult sibling Marital Status: Do you have a Hinduism Preference or Affiliation?: Yes Preference/Affiliation: Gnosticist Current Transportation: Own vehicle Miles from [facility]: 24 Living Arrangements: Children Type of Residence: Private residence Address: [place] [address] How many stairs inside?: 0 How many stairs outside?: 0 Summary of Support System: Pt is currently residing with his son, Juno (19), in a home that [place]rent in [place], [place], which is approximately 24 miles from [place] hospital. Pt is and has two children. His daughter Og (23) lives about 15 minutes away from the patient. She is a nursing program director. His son is still in high school. Pt has no grandchildren. Pt has two brothers, Lorne and Saulo, who both live in the area and work as police officers. His parents are . Pt is not a caregiver for anyone. Does the Patient have a Legal Guardian, Surrogate Decision Maker or Healthcare Agent?: No - Information provided to patient, No - Patient verbally named preferred decision maker Patient verbally named preferred decision maker: Patient does not have advance directive on file [facility]. SW provided paperwork and he will complete at his own discretion. He verbally names his brother, Lorne Daigle, as his surrogate decision maker. Medical Situation Diagnosis/Understanding of Diagnosis: Pt appears to have good understanding of his illness and treatment plan and feels that the team has communicated well. Goals for Treatment: The pt has been open to all treatment options including transplant. Pt understands the risk and benefits of the transplant process, and desires to have one in order to extend hislife. Compliance/Adherence/Medical Management: Through this assessment, SW determined that pt and family possess the skill and ability to provide and monitor the care of the pt when he returns home. Pt andfamily have the capacity to provide/monitor/arrange for the care of the pt. Finally, SW determined that pt and family have the knowledge of available resources and that combining them with their existing resources will suffice to sustain and care for the pt when he returns home. No issues with medical compliance are anticipated. The treatment team is aware of this information. All are in agreement with the aftercare plan. Functional Status/In Home Services/DME/ADLs/Labs: The pt is independent in his activities of daily living. Patient does not use medical assistive devices on a regular basis but states that he did usea cane and walker after a recent heart surgery and still has them. He is on peritoneal dialysis which he initiated October 16, 2019 with [facility]. He has his labs drawn there at [facility] and uses the [facility]. He is able to drive and transports himself to medical appointments independently. Patient also has a Medicaid funded recycle worker who comes three days per week to assist with tasks at home. 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 His current income includes social security disability and hestates that he receives an allowance for his son who still lives with him as he is completing high school. He reports no major financial concerns and states that he is making it but just barely . Financial Assistance: None Social Determinants of Health Transportation Needs: No Transportation Needs (08/01/2024) PRAPARE - Transportation Lack of Transportation (Medical): No Lack of Transportation (Non-Medical): No Social Connections: Socially Isolated (08/01/2024) Social Connection and Isolation Panel [NHANES] Frequency of Communication with Friends and Family: Twice a week Frequency of Social Gatherings with Friends and Family: Once a week Attends Hinduism Services: Never Active Member of Clubs or Organizations: No Attends Club or Organization Meetings: Never Marital Status: Food Insecurity: Food Insecurity Present (08/01/2024) Hunger Vital Sign Worried About Running Out of Food in the Last Year: Sometimes true Ran Out of Food in the Last Year: Sometimes true Housing Stability: Low Risk (08/01/2024) Housing Stability Vital Sign Unable to Pay for Housing in the Last Year: No Number of Times Moved in the Last Year: 1 Homeless in the Last Year: No Financial Resource Strain: Medium Risk (08/01/2024) Overall Financial Resource Strain (CARDIA) Difficulty of Paying Living Expenses: Somewhat hard Utilities: Not At Risk (08/01/2024) [facility] Utilities Threatened with loss of utilities: No Insurance and Benefits Insurance: Medicaid, Medicare Benefits: Pt is insured through [facility] Medicare and [place] Medicaid ([facility]). He states that he is notpaying any premiums for his Medicare and has not had any concerns regarding his insurance coverage.He does not plan to make any changes to coverage in the year ahead. [facility] Social work defers to the financial aid officer for a review of coverage. Substance Use History Tobacco: Patient reports no past or present use of cigarettes or tobacco products. Alcohol: The patient reports no alcohol use currently. He states that he consumed alcohol socially years ago before his health issues began, and has no history of alcohol abuse. Does the patient meet DSM criteria for a past or current Alcohol Use Disorder?: No Other Substances: Patient reports no past or present use of any illicit substances. Does the patient meet DSM criteria for a past or current Substance Use Disorder?: No Legal History Prior Arrest/Incarceration: No Probation/[place]: No Warrants/Charges/Cases: No Valid Baby Stroller Rental Clerk???s License: Yes Summary of Legal History: The patient reports no active legal concerns. Mental Health Mental Status: Alert Orientation: Person, Place, Time, Situation Behavior: Easily engaged in conversation, Cooperative Were any cognitive, intellectual, or memory concerns identified?: No Does the patient meet DSM criteria for a past or current mental health condition?: No Is the patient currently prescribed any psychiatric medications?: No Mental Health History: Patient reports no formal treatment for any mental health concerns in the past. He has never taken any medications for mental health purposes or talked to a therapist in the past. He has had no psychiatric hospitalizations and no past or present suidical/homicidal ideation. He shares that since his health issues began, he has gradually done less and less outside of his home. At this time, he states that he sits in his recliner and watches tv and does not really see friends or have a lot of social connections. He states that he starts dialysis every night at 8pm, which limits what he can do for fun with others. He struggles to identify coping mechanisms or activities that bring him kayce. He shares that his primary care physician advised that he should try medication for depression, however he is reluctant to take an additional medication. He shares that he has also considered connecting to a counselor for support, however he has not been able to find the motivation to make phone calls and find a therapist. Social work stresses the importance of addressing mental health concerns before something as potentially stressful as a kidney transplant. Patient verbalizes understanding and willingness to participate in counseling and may need assistance finding a provider in his area. Herbert Integrated Psychosocial Assessment for Transplant (SIPAT): The [place] Integrated Psychosocial Assessment for Transplant (SIPAT) is a comprehensive screeningtool used to assist in the psychosocial assessment of transplant candidates. This standardized, evidence-based, and objective tool uses different metrics to determine areas of possible intervention for patients prior to transplant. The result of the SIPAT is only one area of each patient's unique situation meaning all aspects should be considered including the clinical judgement of the dialysis social worker. SIPAT Total Score: 18 SIPAT Score Interpretation 0 - 6: Excellent candidate - Recommend to list for transplantation without reservations. 7 - 20: Good candidate - Recommend to list for transplantation - although monitoring of identified risk factors may be required 21 - 39: Minimally Acceptable Candidate - Consider Listing. Identified risk factors must be satisfactorily addressed before representing for consideration. 40 - 69: Poor Candidate - Recommend deferral while identified risks are satisfactorily addressed. > 70: High Risk candidate, significant risks identified - Surgery is not recommended while identified risk factors continue to be present. Absolute Contraindication: None High Risk None Moderate Risk None Low Risk Obesity: BMI >30-40kg/m2: Yes Through the course of our work I determined that patient's family and caregivers possess the skill and ability to provide and monitor the care of the patient when he or she returns home. Patient's family/caregivers have the capacity to provide/monitor/arrange for the care of the patient. And finally we determined that the pt and family/caregivers have the knowledge of available resources and thatcombining them with their existing resources will suffice to sustain the care of the patient when he or she returns home. The treatment team is aware of this information. All are in agreement with the aftercare plan. Summary and Planning Impressions: Patient is a 53 year old white male undergoing evaluation for kidney transplant. He demonstrates a logical thought process, is forthcoming with information, and appears to be a reliable historian. Psychosocial risk factors include symptoms of depression. Patient appears capable of adhering to a post-transplant regimen, and is considered an appropriate candidate for kidney transplant from a psychosocial perspective. Caregivers: Adult sibling, Adult child Adult siblling name/contact: Lorne Daigle Adult child name/contact: Juno Pilo Lodging Plan: The patient resides 24 miles from the hospital and will be able to return home following his discharge from the hospital after transplant. Proposed Interventions: 1) Psychosocial assessment: complete 2) ADPOA: Patient does not have advance directive. SW provided paperwork and he will complete at his own discretion. He verbally names hisbrother, Lorne Daigle, as surrogate decision maker. 3) Finances: Patient reports no significant financial concerns at this time. 4) Employment: Patient is disabled and will likely remain on disability following transplant. 4) Emotional support: Patient expresses symptoms of depression including lack of interest in things that previously brought him kayce, and limited coping mechanisms. SW advisedthat the patient connect with a therapist and he was amenable. SW to assist with finding provider as needed. Resources Provided: Patient provided with ADPOA resources, [employer] living donation education packet, transplant education resources, and transplant mental health support resources. Social work will continue to assess patient annually or as psychosocial needs change until patient is transplanted, should the team determine patient is an acceptable candidate for transplant listing. Patient will continue to complete evaluation testing and follow the recommendations of the transplant team. Assessment Completed by: Sera Callahan LCSW, OSW-C Transplant Mobile Home Set Up Person This note was written as a communication tool between healthcare providers and may contain technical language, terminology, use of tools and abbreviations that are difficult to interpret without advanced training. If you have questions or concerns regarding what is written in this note, please request to speak with the primary medical team taking care of you or your family member. AND DIE REPAIRER documented in this encounter Plan of Treatment Not on file documented as of this encounter Visit Diagnoses Not on filedocumented in this encounter Care Teams Meteorological Engineer Relationship Specialty Start Date End Date Aditya Castro MD [address] [place] [address] PCP - General 10/17/19 Alondra Lambert, RN [address] [facility] [address] [place] [address] Bond Underwriter 03/06/24 Hamlet Ortega Jr., MD [address] [place] [address] Consulting Physician Cardiovascular Disease 05/10/24 documented as of this encounter
--- OUTSIDE RECORDS SUMMARY | 2024-08-18 13:03 | XMS_ITS | Encounter Summary ---
Author Organization [facility] Address [address] [place] [address] Phone Care Team Providers Care High Lift Driver Name Role Phone Aditya Castro MD Primary Care Provider [phone] Alondra Lambert RN Unavailable [phone] Shannon Brock MD, Hamlet P. Unavailable [phone] Leandro Reyes MD Unavailable [phone] Encounter Details Date Type Department Care Team (Late st Contact Info) Description 07/29/2024 1:00 PM COMPUTERIZED MILL RECORDER Office Visit [facility] Nephrology [address] [facility] Advanced Medicine 5th [place] [address] [place] [address] Radha Bartholomew MD [facility] [place] [address] Pre-transplant evaluation for kidney transplant (Primary Dx); End stage renal disease (CMS/HCC) (HCC); Status post coronary artery bypass grafting; Status post aortic valve replacement; Type 1 diabetes mellitus with chronic kidney disease on chronic dialysis (CMS/HCC) (HCC); CAD in comanche artery; Paroxysmal atrial fibrillation (CMS/HCC) (HCC) Social History Tobacco Use Types Packs/Day [...] materials from doctor or pharmacy Never 12/01/2023 [facility] Utilities Answer Date Recorded In the [...] often do you attend chur ch or buddhist services? 1 to 4 times per year 10/16/2023 Do you belong to any clubs o r organizations such as yazdanism groups, unions, fraternal or athletic groups, or [...] on file Legal Sex Male 3:42 AM COMPUTERIZED MILL RECORDER Gender Identity Not on file Sexual Orientation Not on file documented as of this encounter Last Filed Vital Signs Vital Sign Reading Time Taken Comments Blood Pressure 122/75 07/29/2024 1:00 PM COMPUTERIZED MILL RECORDER Pulse 116 07/29/2024 1:00 PM COMPUTERIZED MILL RECORDER Temperature 36.8 ??C (98.2 ??F) 07/29/2024 1:00 PM CS T Respiratory Rate - - Oxygen Saturation - - Inhaled Oxygen Concentration - - Weight 121.2 kg (267 lb 1.6 oz) 07/29/2024 1:00 PM COMPUTERIZED MILL RECORDER Height 177.8 cm (5' 10 ) 07/29/2024 1:00 PM COMPUTERIZED MILL RECORDER Body Mass Index 38.32 07/29/2024 1:00 PM COMPUTERIZED MILL RECORDER documented in this encounter Progress Notes * Radha Bartholomew MD - 07/29/2024 1:00 PM CST KIDNEY TRANSPLANT MEDICINE PRETRANSPLANT EVALUATION I have been asked to evaluate Juvenal Daigle Jr. by Dr. Reyes as a potential kidney recipient. HISTORY OF PRESENT ILLNESS: Juvenal Daigle Jr. is a 53 y.o. male here for evaluation as a potential transplant recipient. He has end-stage renal disease due to diabetic nephropathy which was diagnosed by symptoms in 2019. He is currently on dialysis. Dialysis is through an dialysis catheter placed in the left lower quadrant. He dialyzes on nightly for 9 hours, x 4 cycles with a last fill, no midday exchange. He makes Moderate of urine daily. Currently, he denies significant blood pressure drops. He has not been on midodrine and cinacalcet.He denies any nausea, vomiting, diarrhea, constipation, fever, chills, chest pain, or shortness of breath. He is not currently listed anywhere else. He wants to undergo renal transplant because he would like to have a better quality of life. He does not have living donors at this time. Past medical history: 1. ESRD secondary to presumed DM. Started PD 09/2019 2. Diabetes mellitus since age 15yo, c/b nephropathy, neuropathy, retinopathy, no gastroparesis, foot ulcers, amputations 3. Hypertension 4. CAD s/p CABG x 3 (BRICE->LAD, SVG->OM, SVG->PDA) and On-X mech AVR 09/2023 with sternal plate 5. AL/STEMI 2016 and 2019. Prior stent 03/2017 to RPDA/distal RCA and 06/06/22 to OM 6. Atrial fibrillation 7. BEN 8. Hyperlipidemia Past surgical history: 1. Appendectomy 2. Impella placed/removed 05/2022 3. Cardiac stent 2016 4. CABG x 3 (BRICE->LAD, SVG->OM, SVG->PDA) and On-X mechAVR 10/17/23 with sternal plate 5. ORIF leg surgery 1982 6. Eye surgery for cataract 7. PD cath surgery 8. Hernia repair Allergies Allergen Reactions Allopurinol Other (See comments) and Shortness of breath Shuts my kidneys down per patient. Shuts my kidneys down per patient. Chlorhexidine Flushing (skin) and Other (See comments) CHG bath soap, Patient skin peels all over and becomes tender Skin peels all over and becomes tender Chlorhexidine Gluconate Blisters With CHG bath Contrast Dye [Iodinated Contrast Media] Rash Other Rash Rash Iodinated Diagnostic Agents Ticagrelor Rash Rash Current Outpatient Medications: acetaminophen 500 mg capsule, Take 1 capsule (500 mg total) by mouth every 6 (six) hours as needed for pain, Disp: , Rfl: amLODIPine (NORVASC) 10 mg tablet, , Disp: , Rfl: aspirin 81 mg enteric coated tablet, Take 1 tablet (81 mg total) by mouth daily, Disp: , Rfl: atorvastatin (LIPITOR) 80 mg tablet, Take 1 tablet (80 mg total) by mouth daily, Disp: , Rfl: BASAGLAR 100 unit/mL (3 mL) pen for injection, , Disp: , Rfl: calcitRIOL (ROCALTROL) 0.25 mcg capsule, Take 1 capsule (0.25 mcg total) by mouth daily, Disp: , Rfl: calcium acetate,phosphat bind, (PHOSLO) 667 mg capsule, Take 1 capsule (667 mg total) by mouth 4 (four) times a day (with meals and nightly) With meals and snack, Disp: , Rfl: cetirizine (ZyrTEC) 10 mg tablet, Take 1 tablet (10 mg total) by mouth daily as needed for allergies, Disp: , Rfl: cholecalciferol (VITAMIN D-3) 2000 unit tablet, Take 25 tablets (50,000 Units total) by mouth once a week, Disp: , Rfl: colchicine (COLCRYS) 0.6 mg tablet, Take 1 tablet (0.6 mg total) by mouth 3 (three) times a week Monday, Monday, Monday, Disp: , Rfl: cyclobenzaprine (FLEXERIL) 10 mg tablet, , Disp: , Rfl: cycloSPORINE (RESTASIS) 0.05 % ophthalmic emulsion, , Disp: , Rfl: doxycycline monohydrate (MONODOX) 100 mg capsule, , Disp: , Rfl: erythromycin (ILOTYCIN) ophthalmic ointment, , Disp: , Rfl: EZETIMIBE ORAL, Take 10 mg by mouth daily, Disp: , Rfl: febuxostat (ULORIC) 40 mg tablet, , Disp: , Rfl: gemfibroziL (LOPID) 600 mg tablet, Take 1 tablet (600 mg total) by mouth 2 (two) times a day beforebreakfast and lunch, Disp: , Rfl: Gvoke HypoPen 1-Pack 1 mg/0.2 mL auto-injector, , Disp: , Rfl: HumuLIN N 100 unit/mL (3 mL) pen for injection, , Disp: , Rfl: icosapent ethyL (VASCEPA) 1 gram capsule, Take 2 capsules (2 g total) by mouth 2 (two) times a day,Disp: , Rfl: insulin aspart (NovoLOG) 100 unit/mL vial for injection, , Disp: , Rfl: insulin lispro (HumaLOG, ADMELOG) 100 unit/mL vial for injection, THIS IS FOR THE INSULIN PUMP: Continue Omnipod 5 insulin pump with Dexcom G6 CGM at home settings: TIME BASAL RATE TOTAL BASAL DAILYDOSE: 65.85 0330 1.7 units/hour 0800 0.8 units/hour 2000 5.8 units/hour, Disp: , Rfl: ketoconazole (NIZORAL) 2 % cream, APPLY TO THE AFFECTED AREA(S) toenails BY TOPICAL ROUTE ONCE DAILY, Disp: , Rfl: ketoconazole (NIZORAL) 2 % shampoo, APPLY EXTERNALLY 2 TO 3 TIMES EVERY WEEK NEEDED, Disp: , Rfl: lancets 30 gauge misc, OneTouch Delica Lancets 30 gauge, Disp: , Rfl: levothyroxine (SYNTHROID) 25 mcg tablet, Take 1 tablet (25 mcg total) by mouth hardwood flooring specialist beforebreakfast, Disp: 30 tablet, Rfl: 1 Linzess 72 mcg capsule, Take 1 capsule every day by oral route as directed for 90 days., Disp: , Rfl: metoprolol tartrate (LOPRESSOR) 25 mg immediate release tablet, Take 0.5 tablets (12.5 mg total) bymouth 2 (two) times a day, Disp: 30 tablet, Rfl: 1 metoprolol XL (TOPROL-XL) 25 mg extended release tablet, , Disp: , Rfl: nitroglycerin (NITROSTAT) 0.4 mg SL tablet, , Disp: , Rfl: omeprazole (PriLOSEC) 20 mg capsule, Take 1 capsule (20 mg total) by mouth daily, Disp: , Rfl: peg [id number] (ARTIFICAL TEARS) 1-0.2-0.2 % ophthalmic solution, 1 drop 4 (four) times a day, Disp: , Rfl: pen needle, diabetic (BD Ultra-Fine Short Pen Needle) 31 gauge x 5/16 needle, , Disp: , Rfl: potassium chloride ER 20 mEq CR tablet, , Disp: , Rfl: tamsulosin (FLOMAX) 0.4 mg extended release capsule, TAKE 1 CAPSULE BY MOUTH TWICE DAILY DIRECTED, Disp: , Rfl: torsemide (DEMADEX) 100 mg tablet, Take 1 tablet (100 mg total) by mouth daily, Disp: 30 tablet, Rfl: 1 valACYclovir (VALTREX) 500 mg tablet, , Disp: , Rfl: warfarin (COUMADIN) 2 mg tablet, Take 4 mg (2 tabs) daily with dinner, or as directed, Disp: 60 tablet, Rfl: 1 amiodarone (PACERONE) 200 mg tablet, , Disp: , Rfl: famotidine (PEPCID) 40 mg tablet, Take 0.5 tablets (20 mg total) by mouth nightly (Patient not taking: Reported on 07/29/2024), Disp: , Rfl: HYDROcodone-acetaminophen (NORCO) 5-325 mg per tablet, Take 1 tablet by mouth every 4 (four) hours as needed for pain (Patient not taking: Reported on 07/29/2024), Disp: 30 tablet, Rfl: 0 Family history: family history includes Heart attack in his father. CAD, CHF, HTN. Passed in his 60's. Mother had lung CA HTN Social history: reports that he has never smoked. He has quit using smokeless tobacco. He reports that he does not use drugs. Patient reports consuming alcoholic drinks monthly or less, with a daily consumption of drinks. Patient denies daily consumption of 6 or more alcoholic drinks at one occasion. Review of Systems All other systems reviewed and are negative. SENSITIZING EVENTS: Positive for: Blood transfusions VIRAL INFECTIONS: Negative for HSV mouth, HSV genitals, shingles, and mumps,. Viral infections positive for: VZV Overall physical fitness by Karnofsky: 50 - Requires considerable assistance and frequent medical care Exercise tolerance: does get winded at times Infections recent: none Cancers: none Cardiac difficulties: 3vv CABG and AVR Vascular difficulties: none Pulmonary difficulties: none Neurologic difficulties: none Coagulopathy issues: on warfarin Problems with General anesthesia: none Assistance/care post transplant will be provided by: family, son PHYSICAL EXAM: Vitals Ht 177.8 cm (5' 10 ) Wt 121.2 kg (267 lb 1.6 oz) BMI 38.32 kg/m?? Physical Exam Vitals reviewed. Constitutional: General: He is not in acute distress. Appearance: Normal appearance. HENT: Head: Normocephalic and atraumatic. Right Ear: External ear normal. Left Ear: External ear normal. Nose: Nose normal. Mouth/Throat: Pharynx: Oropharynx is clear. Eyes: General: No scleral icterus. Extraocular Movements: Extraocular movements intact. Conjunctiva/sclera: Conjunctivae normal. Neck: Vascular: No carotid bruit. Cardiovascular: Rate and Rhythm: Normal rate and regular rhythm. Pulses: Normal pulses. Heart sounds: Normal heart sounds. Comments: mechAVR sounds. Dec pulses bilat in DP/PT Pulmonary: Effort: Pulmonary effort is normal. Breath sounds: Normal breath sounds. No wheezing. Abdominal: General: Bowel sounds are normal. Palpations: Abdomen is soft. Tenderness: There is no abdominal tenderness. Comments: PD cath present ?distal cuff visible Musculoskeletal: Cervical back: Normal range of motion and neck supple. Right lower leg: Edema present. Left lower leg: Edema present. Lymphadenopathy: Cervical: No cervical adenopathy. Skin: General: Skin is warm. Comments: No foot ulcers or significantly thickened callouses Neurological: Mental Status: He is alert and oriented to person, place, and time. Sensory: Sensory deficit: neuropathy up to mid-pretibial area bilat. Psychiatric: Mood and Affect: Mood normal. LABORATORY VALUES Chemistry Chemistry Component Value Date/Time SODIUM 136 07/29/2024 1101 POTASSIUM 4.6 07/29/2024 1101 CHLORIDE 93 (L) 07/29/2024 1101 CO2 26 07/29/2024 1101 CO2 23 06/05/2022 1517 BUNSER 65 (H) 07/29/2024 1101 CREATININE 8.07 (H) 07/29/2024 1101 GLUCOSE 280 (H) 07/29/2024 1101 Component Value Date/Time CALCIUM 9.4 07/29/2024 1101 ALKPHOS 99 07/29/2024 1101 AST 31 07/29/2024 1101 ALT 30 07/29/2024 1101 BILITOT 0.3 07/29/2024 1101 Lab Results Component Value Date PTH 444 (H) 07/29/2024 CALCIUM 9.4 07/29/2024 CAION 4.38 (L) 10/20/2023 PHOS 5.1 (H) 07/29/2024 Lab Results Component Value Date LABGGT 22 07/29/2024 Lab Results Component Value Date HGBA1C 9.0 (H) 07/29/2024 Lab Results Component Value Date PSA 0.55 07/29/2024 Lab Results Component Value Date URICACID 2.0 (L) 07/29/2024 Lab Results Component Value Date CHOL 114 07/29/2024 TRIG 66 07/29/2024 HDL 29 (L) 07/29/2024 LDLCALC 71 07/29/2024 CBC Lab Results Component Value Date WBC 5.1 07/29/2024 HGB 11.5 (L) 07/29/2024 HCT 34.4 (L) 07/29/2024 MCV 91.5 07/29/2024 LABPLAT 208 07/29/2024 Lab Results Component Value Date FERRITIN 761 (H) 07/29/2024 IRON 62 07/29/2024 TRANSFERSAT 30 07/29/2024 Lab Results Component Value Date ABORH A Positive 07/29/2024 Lab Results Component Value Date PT 50.6 (H) 07/29/2024 INR 4.54 (H) 07/29/2024 APTT 61 (H) 07/29/2024 Viral serologies: Lab Results Component Value Date HEPBCAB Nonreactive 07/29/2024 HEPCAB Nonreactive 07/29/2024 Lab Results Component Value Date LABRPR Nonreactive 07/29/2024 Lab Results Component Value Date [id number] Nonreactive 07/29/2024 Lab Results Component Value Date HLA Received 07/29/2024 HLA Received 07/29/2024 HLA Received 07/29/2024 IMAGING AND DIAGNOSTICS: CXR: requires CT abd/pelvis: 07/29/24 CT Abdomen Pelvis WO Contrast Narrative EXAMINATION: Computed tomography of the abdomen and [...] Degenerative changes in the lower lumbar spine. Impression 1. Moderate discontinuous atherosclerotic calcifications involve the [...] clinically if there is concern for panniculitis. EK07/29/24 VR 117 Qtc 510 Poor data quality, interpretation may be adversely affected Sinus tachycardia with Fusion complexes Left axis deviation Poor R-wave progression in the precordial leads Non-specific intra-ventricular conduction block T wave abnormality, consider lateral ischemia Abnormal ECG Transthoracic Echo (TTE) Complete W Doppler/CF 10/16/2023 PROCEDURES: Echocardiographic Report: Transthoracic Echocardiogram with 2D, M-Mode, Spectral and Color Flow Doppler examination and administration of intravenous contrast. INDICATIONS: Coronary artery disease, comanche vessel. Measurements: 2D/M Mode Doppler Measurement Value Normal Range Measurement Value Normal Range LVPWd 2D 1.43 [ 0.60 - 1.00 ] cm AV Peak Robe 2.9 [ 1.0 - 1.7 ] m/s LA Dimension 2D 4.47 [ 3.00 - 4.00 ] cm AV Peak PG 33 mmHg AoR Diam 2D 3.45 [ 3.10 - 3.70 ] cm AV Mean PG 19 mmHg TAPSE 1.93 [ >= 1.71 ] cm AV VTI 64.2 cm LARA V max 1.3 cm2 LARA VTI 1.4 cm2 LVOT Peak Robe 0.99 [ 0.70 - 1.10 ] m/s LVOT Diam 2.2 cm LVOT Peak PG 4 mmHg LVOT VTI 23.0 cm MV Peak PG 8 mmHg MV Mean PG 2 mmHg MV E Peak Robe 1.4 [ 0.6 - 1.3 ] m/s MV A Peak Robe 0.4 [ 1.0 - 1.2 ] m/s MV PHT 78.0 [ 20.0 - 100.0 ] ms MV Decel Time 161.4 [ 104.0 - 258.0 ] ms MVA PHT 2.8 ms MV E/A Ratio 3.5 TR Peak Robe 3.0 [ 1.0 - 2.8 ] m/s TR Peak PG 37 mmHg RVSP 48.6 [ 10.0 - 36.0 ] mmHg RA Pressure 12.0 mmHg PV Peak Robe 1.0 [ 0.4 - 0.8 ] m/s PV Peak PG 4 mmHg Lat E` Robe 0.07 [ 0.10 - 0.15 ] m/s Sept E' Robe 0.03 [ 0.08 - 0.15 ] m/s E/E` 20.00 RV S' 0.10 m/s Measurement Value Normal Range Measurement Value Normal Range 2D/M Mode Doppler - FINDINGS: Study Quality: Technically difficult study. Contrast was employed for LV opacification and endocardial border enhancement. BP: Blood pressure: 125/75 mmHg. Left Ventricle: Severe left ventricular systolic dysfunction. There is global hypokinesis. More focal hypokinesis of the apex. Ejection Fraction is measured at (Simpsons) 30 %. Right Ventricle: Low normal right ventricular systolic function. Left Atrium: There is moderate enlargement of the left atrium. Right Atrium: The right atrium is normal in size. Atrial Septum: Normal appearing atrial septum. Mitral Valve: Normal appearance of the mitral valve leaflets. Mild mitral valve regurgitation. Aortic Valve: Aortic cusps appear moderately calcified. Moderate to severe aortic stenosis. Tricuspid Valve: Normal appearance of the tricuspid leaflets. Mild tricuspid regurgitation. Pulmonic Valve: Pulmonic valve not well visualized. Pericardium: No significant pericardial effusion. Aortic Root and Aorta: Normal caliber aortic root. Aortic Arch: The aortic arch is poorly visualized. IVC: Size and compressability data are discordant suggesting intermediate right atrial pressures. CONCLUSIONS: 1. Severe left ventricular systolic dysfunction. There is global hypokinesis. More focal hypokinesis of the apex Ejection Fraction is measured at (Simpsons) 30 %. 2. Normal appearance of the mitral valve leaflets. Mild mitral valve regurgitation. 3. Aortic cusps appear moderately calcified. Moderate to severe aortic stenosis. 4. Normal appearance of the tricuspid leaflets. Mild tricuspid regurgitation. TTE 01/2024 Severe global LV hypokinesis, normal LV wall thickness. Moderate enlargement LV chamber, restrictive physiology, elevated LVEDP, EF 34%. Mild MVR, normal mechAV with LARA 1.8cm2, mild TR, RAP 15mmHg and Est peak PASP 45mmHg. Panorex 07/29/24 XR Orthopantogram Panorex Narrative EXAMINATION: XR ORTHOPANTOGRAM/PANOREX HISTORY: Kidney Transplant Evaluation COMPARISON: None available FINDINGS: Comparison: Multiple dental extractions and restorations. There is an apparent dental caries involving the left maxillary 1st premolar, and caries versus extraction of the left maxillary canine. No large mandibular periapical abscess. 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 6 minute walk on 07/29/24 Patient walked 691 feet Colonoscopy pending IMPRESSION: Juvenal Daigle Jr. is a 53 y.o. male here for evaluation as a potential transplant recipient. The following are his risks: 1. ESRD from DM, on PD 2. CAD s/p CABG and mechAVR 2023 3. Atrial fibrillation 4. Volume overload on Ct 5. Poor 6-min walk 6. Pending colonoscopy 7. Depressed EF on pre-CABG/mechAVR surgery Transplant candidacy: Based on the above information and testing, I have communicated with the patient's [facility] family literacy coordinator the patient's candidacy for transplant and how we will move forwardwith completing this patient's evaluation for kidney transplantation. I believe him to be a candidate that will need work on optimization a few health items . As part of his evaluation, we would recommend the followin. This patient started dialysis in 2019, and so would have 4 years of wait time accumulated and would theoretically be transplanted faster as a result. Due to this, I would recommend some oliver healthoptimization items be completed 2. Ask transplant surgery to evaluate CT for arterial targets for transplant. 3. See a dentist given number of findings on his panorex. He has not seen one in some time 4. He appears volume overloaded by CT and by exam. This excess volume may also be affecting his 6-MW results as well. He should work with his journalism professor on volume removal/fluid restriction to optimize this. 5. Repeat a TTE/LEIA as the last was completed around January 2024. Would like to see if his EF has improved further post CABG as it was around 30% at that time. 6. Complete colonoscopy 7. Chest Xray 8. INR was 4.5 - discussed that he should discuss with his provider managing the warfarin for any adjustment 9. Discussed with him that the potential for bleeding post kidney transplant would be higher as he requires anticoagulation for his valve. 10. Discussed potential for higher glucose post transplant 11. Discussed risks/benefits of immunosuppression including risks for infections, cancers. Discussed expected half-life for kidney transplant, SHR donors. 12. Being seen by his journalism professor this week for the PD cath. The risks and benefits of kidney transplantation and immunosuppression including financial, medicalrisks, potential need to receive blood products and need for long-term follow-up care were addressed with the patient. The possibility of alternative treatments such as dialysis or were also discussed with the patient. The patient was offered the opportunity for questions and discussion. Final determination of the patient's transplant candidacy will be made after a review of the incoming data and discussion in the multidisciplinary kidney transplant meeting. My total encounter time on 07/29/2024 was 65 minutes which was spent in the activities documented inthe note. This includes time spent prior to the visit and after the visit in direct care of the patient. This time does not include time spent in any separately reportable services. UTERIZED MILL RECORDER UTERIZED MILL RECORDER documented in this encounter Plan of Treatment Not on file documented as of this encounter Visit Diagnoses Diagnosis Pre-transplant evaluation for kidney transplant- Primary End stage renal disease (CMS/HCC) (HCC) End stage renal disease Status post coronary artery bypass grafting Status post aortic valve replacement Heart valve replaced by other means Type 1 diabetes mellitus with chronic kidney disease on chronic dialysis (CMS/HCC) (HCC) CAD in comanche artery Paroxysmal atrial fibrillation (CMS/HCC) (HCC) Atrial fibrillation documented in this encounter Historical Medications * This list may reflect changes made after this encounter. potassium chloride ER 20 mEq CR tablet peg 400-hypromellose- glycerin (ARTIFICAL TEARS) 1-0.2-0.2 % ophthalmic solution 1 drop 4 (four) times a day 07/07/2022 nitroglycerin (NITROSTAT) 0.4 mg SL tablet 12/27/2017 metoprolol XL (TOPROL-XL) 25 mg extended release tablet 06/17/2024 Linzess 72 mcg capsule Take 1 capsule every day by oral route as directed for 90 days. 07/10/2023 lancets 30 gauge misc OneTouch Delica Lancets 30 gauge tamsulosin (FLOMAX) 0.4 mg extended release capsule TAKE 1 CAPSULE BY MOUTH TWICE DAILY DIRECTED 07/15/2024 ketoconazole (NIZORAL) 2 % cream APPLY TO THE AFFECTED AREA(S) toenails BY TOPICAL ROUTE ONCE DAILY ketoconazole (NIZORAL) 2 % shampoo APPLY EXTERNALLY 2 TO 3 TIMES EVERY WEEK NEEDED 04/23/2019 HumuLIN N 100 unit/mL (3 mL) pen for injection BASAGLAR 100 unit/mL (3 mL) pen for injection 05/16/2024 insulin aspart (NovoLOG) 100 unit/mL vial for injection Gvoke HypoPen 1-Pack 1 mg/0.2 mL auto-injector doxycycline monohydrate (MONODOX) 100 mg capsule febuxostat (ULORIC) 40 mg tablet 07/13/2024 erythromycin (ILOTYCIN) ophthalmic ointment 06/25/2024 valACYclovir (VALTREX) 500 mg tablet cycloSPORINE (RESTASIS) 0.05 % ophthalmic emulsion 07/19/2024 cyclobenzaprine (FLEXERIL) 10 mg tablet 07/10/2024 amiodarone (PACERONE) 200 mg tablet amLODIPine (NORVASC) 10 mg tablet added in this encounter Care Teams High Lift Driver Relationship Specialty Start Date End Date Aditya Castro MD [address] [facility] [place] [address] PCP - General 10/17/19 Alondra Lambert, RN [address] [facility] [address] [place] [address] Student Accounts Manager 03/06/24 Hamlet Ortega Jr., MD [address] [place] [address] Consulting Physician Cardiovascular Disease 05/10/24 Leandro Reyes MD [address] [place] [id number] Consulting Physician Nephrology 07/30/24 documented as of this encounter
--- OUTSIDE RECORDS SUMMARY | 2024-08-18 13:03 | XMS_ITS | Encounter Summary ---
Author Organization [facility] Healthcare Address [address] [place] [address] Care Team Providers Care Health Program Analyst Name Role Phone Aditya Castro MD Primary Care Provider [phone] Alondra Lambert RN Unavailable [phone] Shannon Brock MD, Hamlet P. Unavailable [phone] Reason for Referral * Cardiology (Routine) - Pending Review Specialty Diagnoses / Procedures Referred By Contac t Referred To Contact Diagnoses End stage renal disease (CMS/HCC) (HCC) Procedures ECG 12 lead Jossie King MD [address] [place] [address] Phone: tel: fax: [facility] [place] [address] Referral ID Status Reason Start Date Expiration Date V isits Requested Visits Authorized [id number] Pending Review 05/10/2024 06/09/2025 1 1 MERIZATION OVEN TENDER Reason for Visit * Cardiology (Routine) - Pending Review Specialty Diagnoses / Procedures Referred By Contac t Referred To Contact Diagnoses End stage renal disease (CMS/HCC) (HCC) Procedures ECG 12 lead Jossie King MD [address] [place] [address] Phone: tel: fax: [facility] [place] [address] Referral ID Status Reason Start Date Expiration Date V isits Requested Visits Authorized [id number] Pending Review 05/10/2024 06/09/2025 1 1 Encounter Details Date Type Department Care Team (Latest Contact Info) Description 07/29/2024 10:53 AM POLYMERIZATION OVEN TENDER - 07/29/2024 11:59 PM POLYMERIZATION OVEN TENDER Hospital Encounter [facility] [address] [place] [address] End stage renal disease (CMS/HCC) (HCC) Discharge [...] materials from doctor or pharmacy Never 12/01/2023 [facility] Utilities Answer Date Recorded In the past 12 months has e [employer], gas, oil, or water [employer] threatened to shut off services in your [...] any clubs o r organizations such as tenriism groups, unions, fraternal or athletic groups, or [...] on file Legal Sex Male 3:42 AM POLYMERIZATION OVEN TENDER Gender Identity Not on file Sexual Orientation [...] PUMP: Continue Omnipod 5 insulin pump with Cardiac Dimensions G6 CGM at home settings: TIME BASAL [...] 1 tablet (25 mcg total) by mouth coal pipeline operator before breakfast 30 tablet 1 11/04/2023 [...] (20 mg total) by mouth daily peg [id number]-cxm cerin (ARTIFICAL TEARS) 1-0.2-0.2 % ophthalmic solution [...] 500 mg tablet warfarin (COUMADIN) 2 mg tabletIndications:Ar chanical Valve Thromboembolism Prophylaxis Take 4 mg (2 tabs) daily with dinner, or as directed 60 tablet 1 11/03/2023 documented as of this encounter Discharge Disposition Disposition Code Departure Means Destination Discharge to home or self care documented in this encounter Plan of Treatment Not on file documented as of this encounter Procedures Procedure Name Priority Date/Time Associated Diagnosis Comments ECG 12-LEAD Routine 07/29/2024 11:14 AM POLYMERIZATION OVEN TENDER End stage renal disease (CMS/HCC) (HCC) documented in this encounter Results * ECG 12 lead (07/29/2024 11:14 AM [facility]) Ventricular Rate EKG/Min 117 BPM [facility] Atrial Rate 117 BPM [facility] VT-Interval (MSEC) 144 ms [facility] QRS-Interval (MSEC) 126 ms [facility] QT-Interval (MSEC) 366 ms [facility] QTc 510 ms [facility] R [place] -40 degrees [facility] T [place] 147 degrees [facility] Diagnosis Poor data quality, interpretation may be [...] SAL M.D ([id number]) on 07/29/2024 3:38:41 PM [facility] 07/29/2024 11:1 4 AM POLYMERIZATION OVEN TENDER 07/29/2024 3:38 PM POLYMERIZATION OVEN TENDER Jossie King MD ECG ORDERABLES Fi nal Result [facility] documented in this encounter Visit Diagnoses Diagnosis End stage renal disease (CMS/HCC) (HCC) End stage renal disease documented in this encounter Care Teams Health Program Analyst Relationship Specialty Start Date End Date Aditya Castro MD [address] [place] [address] PCP - General 10/17/19 Alondra Lambert, RN [address] [address] Provider Contracting Consultant 03/06/24 Hamlet Ortega Jr., MD [address] [place] [address] Consulting Physician Cardiovascular Disease 05/10/24 documented as of this encounter
--- OUTSIDE RECORDS SUMMARY | 2024-08-18 13:04 | XMS_ITS | Encounter Summary ---
Author Organization [facility] Healthcare Address [address] [place] [address] Care Team Providers Care Marker Hand Name Role Phone Aditya Castro MD Primary Care Provider [phone] Alondra Lambert RN Unavailable [phone] Shannon Brock MD, Hamlet Gordon Unavailable [phone] Encounter Details Date Type Department Care Team (Late st Contact Info) Description 06/06/2024 Documentation [facility] Transplant Kidney [id number] [place] [address] Melany Kelly Social History Tobacco Use Types Packs/Day Years [...] materials from doctor or pharmacy Never 12/01/2023 [facility] Utilities Answer Date Recorded In the past 12 months has [facility], gas, oil, or water company threatened to [...] often do you attend chur ch or samaritan services? 1 to 4 times per year 10/16/2023 Do you belong to any clubs o r organizations such as rastafari groups, unions, fraternal or athletic groups, or [...] place to sleep or slept in a intermediate (including now)? No 10/16/2023 Personal Safety Answer Date Recorded Have you ever been in or are you currently in a harmful physical or emotional relationship or is someone making you feel afraid or unsafe? 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 Male 3:42 AM PAYROLL OFFICER Gender Identity Not on file Sexual Orientation Not on file documented as of this encounter Last Filed Vital Signs Vital Sign Reading Time Taken Comments Blood Pressure - - Pulse - - Temperature - - Respiratory Rate - - Oxygen Saturation - - Inhaled Oxygen Concentration - - Weight 118.1 kg (260 lb 5.8 oz) 024 12:36 PM CDT Height - - Body Mass Index 37.36 03/06/2024 9:56 AM CDT documented in this encounter Progress Notes * Melany Kelly - 06/06/2024 12:36 PM CDT Received dialysis records via fax and saved to chart Updated weight , dialysis start date, and immunizations documented in this encounter Plan of Treatment Not on file documented as of this encounter Visit Diagnoses Not on filedocumented in this encounter Care Teams Marker Hand Relationship Specialty Start Date End Date Aditya Castro MD [address] [place] [address] PCP - General 10/17/19 Alondra Lambert, RN [address] [facility] [address] [place] [address] Machinery Dismantler 03/06/24 Hamlet Ortega Jr., MD [address] [place] [address] Consulting Physician Cardiovascular Disease 05/10/24 documented as of this encounter
--- OUTSIDE RECORDS SUMMARY | 2024-08-18 13:04 | XMS_ITS | Encounter Summary ---
Author Organization [facility] Healthcare Address [address] [place] [address] Care Team Providers Care Legislative Assistant Name Role Phone Aditya Castro MD Primary Care Provider [phone] Alondra Lambert RN Unavailable [phone] Reason for Referral * Transplant (Routine) - Authorized Specialty Diagnoses / Procedures Referred By Contac t Referred To Contact Transplant Diagnoses ESRD (end stage renal disease) ([facility]) (HCC) Elizabeth Cardoso MD [address] [place] [address] Phone: tel: fax: [facility] Transplant Kidney [address] [facility] [address] [phone] [place] [address] Phone: tel: fax: Referral ID Status Reason Start Date Expiration Date Visits Requested Visits Authorized [id number] Authorized Specialty Services Required 03/06/2024 03/06/2034 1 1 Question Answer Organ Kidney [[id number]] Please select the performing region: [facility] [[id number]] Please select the performing department: [facility] KIDNEY TRANSPLANT [[id number]] Reason for Visit * Reason Onset Date Comments Referral - Kidney Txp 03/06/2024 Encounter Details Date Type Department Care Team (Late st Contact Info) Description 03/06/2024 Telephone [facility] Transplant Kidney [address] [facility] [address] Mailstop [phone] [place] [address] Tisha Riley Referral - Kidney Txp Social History Tobacco Use Types Packs/Day Years [...] materials from doctor or pharmacy Never 12/01/2023 [facility] Utilities Answer Date Recorded In the past 12 months has [employer], gas, oil, or water [employer] threatened to shut off services in your [...] How often do you attend chur or restoration services? 1 to 4 times per year 10/16/2023 Do you belong to any clubs o r organizations such as denominational groups, unions, fraternal or athletic groups, or [...] health care facility (including now)? No 10/16/2023 Personal Safety Answer Date Recorded Have you ever been in or are you currently in a harmful physical or emotional relationship or is someone making you feel afraid or unsafe? 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 Male 3:42 AM BATTERY REPAIRER Gender Identity Not on file Sexual Orientation Not on file documented as of this encounter Last Filed Vital Signs Vital Sign Reading Time Taken Comments Blood Pressure - - Pulse - - Temperature - - Respiratory Rate - - Oxygen Saturation - - Inhaled Oxygen Concentration - - Weight 118.4 kg (261 lb) 03/06/2024 9:56 AM CDT Height 177.8 cm (5' 10 ) 03/06/2024 9:56 AM CDT Body Mass Index 37.45 03/06/2024 9:56 AM CDT documented in this encounter Miscellaneous Notes * Telephone Encounter - Chris Richard - 05/03/2024 11:07 AM CDT Patient has acceptable insurance. Please proceed with evaluation. * Telephone Encounter - Nona Barker - 05/02/2024 11:17 AM CDT Reverified insurance with [employer] patient had Aetna Medicare Patient now has [facility] Complete [place] and [place] * Telephone Encounter - Chris Richard - 05/02/2024 10:53 AM CDT Patient faxed his [facility] Medicare Advantage insurance card, saved in Media. Please verify insurance. Thank you! * Telephone Encounter - Chris Richard - 04/01/2024 1:08 PM CDT Outreached to patient at [phone], per patient, he is pending an answer from [facility] on whether they would cover his INR machine. Follow up in a month. * Telephone Encounter - Chris Richard - 03/25/2024 1:46 PM CDT Outreached to patient at [phone], left detailed voicemail requesting patient to fax his [facility] insurance card to Finance. Provided Finance's fax number. Invited patient to call should his insurancesituation is otherwise. * Telephone Encounter - Chris Richard - 03/06/2024 1:46 PM CDT Patient called back inquiring if [facility] Transplant accepts [facility] Complete Care PPO. Informed patient that [facility] works with [facility] Transplant. Suggested patient to check with his existing provider and the insurance plan to ensure seamless transition to the [facility] plan, and it is his responsibility to ensure thisis the case. Patient expressed understanding. Patient mentioned the [facility] plan will be effective 024 if he signs up for [facility]. Informed patient that Financ will call him on 03/25/2024 to obtain insurance ID number and insurance card. Patient understood. * Telephone Encounter - Chris Richard - 03/06/2024 11:49 AM CDT Outreached to patient at [phone], informed patient that [facility] does not include [facility] Transplant as a in-network provider. Offered the option to have patient contact [facility] for possible transplant network, or to work on switching insurance in his own will to a carrier that works with [facility]. Patient opted for changing his insurance. Suggested patient to consult his loft worker apprentice and or insurance adjustor. Patient preliminary opting for [facility]. Informed patient that [facility] works with [facility] for transplant. Patient requested call back in 2 weeks. * Telephone Encounter - Elsie Rebolledo - 03/06/2024 10:22 AM CDT Patient has Aetna Medicare Gold Advantage and IPA We do not take Aetna Medicare Gold Advantage for Transplant * Telephone Encounter - Tisha Riley - 03/06/2024 9:55 AM CDT Patient initially referred to Alondra for Kidney Transplant evaluation on 03/06/24 Patient is currently on dialysis Recipient questionnaire, ROXANA, and inclusion teacher assessment saved to chart documented in this encounter Plan of Treatment Scheduled Referrals Name Type Priority Associated Diagnoses Order Schedule Transplant Referral for Financial Clearance Outpatient Referral Routine ESRD (end stage renal disease) (CMS/HCC) ([facility]) Ordered: 03/06/2024 documented as of this encounter Visit Diagnoses Diagnosis ESRD (end stage renal disease) (CMS/HCC) (HCC)- Primary End stage renal disease documented in this encounter Care Teams Legislative Assistant Relationship Specialty Start Date End Date Aditya Castor MD [address] [place] [address] PCP - General 10/17/19 Alondra Lambert, RN [address] [address] Payroll Director 03/06/24 documented as of this encounter
--- OUTSIDE RECORDS SUMMARY | 2024-08-18 13:04 | XMS_ITS | Encounter Summary ---
Author Organization [facility] Healthcare Address [address] [place] [address] Care Team Providers Care Shoe Reconditioner Name Role Phone Aditya Castro MD Primary Care Provider [phone] Alondra Lambert RN Unavailable [phone] Shannon Brock MD, Hamlet Gordon Unavailable [phone] Encounter Details Date Type Department Care Team (Late st Contact Info) Description 06/24/2024 Telephone [facility] Transplant Kidney [address] [address] Mail[address] [phone] [place] [address] Chris Richard Social History Tobacco Use Types [...] materials from doctor or pharmacy Never 12/01/2023 [facility] Utilities Answer Date Recorded In the past 12 months has e [employer], gas, oil, or water company threatened to [...] often do you attend chur ch or faith services? 1 to 4 times per year 10/16/2023 Do you belong to any clubs o r organizations such as episcopalian groups, unions, fraternal or athletic groups, or [...] place to sleep or slept in a custodial (including now)? No 10/16/2023 Personal Safety Answer Date Recorded Have you ever been in or are you currently in a harmful physical or emotional relationship or is someone making you feel afraid or unsafe? 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 Male 3:42 AM DRAMATIC ART TEACHER Gender Identity Not on file Sexual Orientation Not on file documented as of this encounter Miscellaneous Notes * Telephone Encounter - Chris Richard - 06/24/2024 4:08 PM CST Outreached to [facility] at , per New, patient's kidney transplant evaluation caseis initiated under effective 06/24/2024. Pending confirmation. ATIC ART TEACHER documented in this encounter Plan of Treatment Not on file documented as of this encounter Visit Diagnoses Not on filedocumented in this encounter Care Teams Shoe Reconditioner Relationship Specialty Start Date End Date Aditya Castro MD [address] [place] [address] PCP - General 10/17/19 Alondra Lambert, RN [address] [facility] [address] [place] [address] Job Coach/Job Developer 03/06/24 Hamlet Ortega Jr., MD [address] [place] [address] Consulting Physician Cardiovascular Disease 05/10/24 documented as of this encounter
--- OUTSIDE RECORDS SUMMARY | 2024-08-18 13:04 | XMS_ITS | Encounter Summary ---
Author Organization [facility] Healthcare Address [address] [place] [address] Care Team Providers Care Iv Therapy Nurse Name Role Phone Aditya Castro MD Primary Care Provider [phone] Reason for Visit * Reason Onset Date Comments Anticoagulation 12/01/2023 Encounter Details Date Type Department Care Team (Late st Contact Info) Description 12/01/2023 Telephone Cardiovascular and Thoracic Surgery [address] [facility] [address] [place] [address] Licha Jenkins NP [address] [facility] [address] [place] [address] Anticoagulation Social History Tobacco Use Types Packs/Day Years [...] doctor or pharmacy Never 12/01/2023 [facility] Utilities Answer Date Recorded In the past 12 months has th e [employer], [employer], or [employer] threatened to shut off services in your [...] often do you attend chur ch or scientologist services? 1 to 4 times per year 10/16/2023 Do you belong to any clubs o r organizations such as judaism groups, unions, fraternal or athletic groups, or [...] place to sleep or slept in a chcf (including now)? No 10/16/2023 Personal Safety Answer Date Recorded Have you ever been in or are you currently in a harmful physical or emotional relationship or is someone making you feel afraid or unsafe? 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 INR today is 1.5. Pt has an On-x mechanical valve. Current warfarin dose is 4 mg on MWF and 3 mg the rest. He will take 6 mg today and then 4 mg daily. He sees his dray truck driver on Monday and they will take over his anticoagulation management. He is discharged from home health after today. documented in this encounter Plan of Treatment Not on file documented as of this encounter Visit Diagnoses Not on filedocumented in this encounter Care Teams Iv Therapy Nurse Relationship Specialty Start Date End Date Aditya Castro MD [address] [facility] [place] [address] PCP - General 10/17/19 documented as of this encounter
--- OUTSIDE RECORDS SUMMARY | 2024-08-18 13:04 | XMS_ITS | Encounter Summary ---
Author Organization [facility] Healthcare Address [address] [place] [address] Care Team Providers Care Nickel Plater Name Role Phone Aditya Castro MD Primary Care Provider [phone] Alondra Lambert RN Unavailable [phone] Shannon Brock MD, Hamlet Gordon Unavailable [phone] Encounter Details Date Type Department Care Team (Late st Contact Info) Description 06/28/2024 Telephone [facility] Transplant Kidney [address] [address] Mail[address] [phone] [place] [address] Chris Richard Social History Tobacco Use Types [...] materials from doctor or pharmacy Never 12/01/2023 [facility] Utilities Answer Date Recorded In the past 12 months has e [employer], gas, oil, or water company threatened to [...] often do you attend chur ch or moravian services? 1 to 4 times per year 10/16/2023 Do you belong to any clubs o r organizations such as mandaeism groups, unions, fraternal or athletic groups, or [...] place to sleep or slept in a long term (including now)? No 10/16/2023 Personal Safety Answer Date Recorded Have you ever been in or are you currently in a harmful physical or emotional relationship or is someone making you feel afraid or unsafe? 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 Male 3:42 AM FRAME EXPANDER Gender Identity Not on file Sexual Orientation Not on file documented as of this encounter Miscellaneous Notes * Telephone Encounter - Chris Richard - 06/28/2024 12:15 PM CST Voicemail from Yovanny, exhibitions and collections manager of [facility], states patient's kidney transplant [id number] effective [id number] with no expiration date. Yovanny can be reached at [phone] ext [phone]. E EXPANDER documented in this encounter Plan of Treatment Not on file documented as of this encounter Visit Diagnoses Not on filedocumented in this encounter Care Teams Nickel Plater Relationship Specialty Start Date End Date Aditya Castro MD [address] [place] [address] PCP - General 10/17/19 Alondra Lambert, RN [address] [facility] [address] [place] [address] Digital Product Manager 03/06/24 Hamlet Ortega Jr., MD [address] [place] [address] Consulting Physician Cardiovascular Disease 05/10/24 documented as of this encounter
--- OUTSIDE RECORDS SUMMARY | 2024-08-18 13:04 | XMS_ITS | Encounter Summary ---
Author Organization [facility] Healthcare Address [address] [place] [address] Care Team Providers Care Treating And Pumping Supervisor Name Role Phone Aditya Castro MD Primary Care Provider [phone] Reason for Visit * Auth/Cert (Routine) Specialty Diagnoses / Procedures Referred By Aguilar t Referred To Contact Referral ID Status Reason Start Date Expiration Date Visits Re quested Visits Authorized [id number] 1 1 Encounter Details Date Type Department Care Team (Late st Contact Info) Description 12/01/2023 10:30 AM CDT Home Care Visit [address] [place] [address] Miriam Syed RN SN OASIS DISCHARGE Social History Tobacco Use Types Packs/Day Years [...] the past 12 months has th e [employer], gas, oil, or water company threatened to [...] often do you attend chur ch or taoism services? 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 Gender Identity Not on file Sexual Orientation Not on file documented as of this encounter Last Filed Vital Signs Vital Sign Reading Time Taken Comments Blood Pressure 138/78 12/01/2023 11:13 AM CDT Pulse 75 12/01/2023 11:13 AM CDT Temperature 36.3 ??C (97.4 ??F) 12/01/2023 11:13 AM C DT Respiratory Rate 16 12/01/2023 11:13 AM CDT Oxygen Saturation 96% 12/01/2023 11:13 AM CDT Inhaled Oxygen Concentration - - Weight - - Height - - Body Mass Index - - documented in this encounter Miscellaneous Notes * Home Health Plan for Next Visit - Miriam Syed RN - 12/01/2023 11:44 AM CDT Reason for today's visit INR result 1.5 NO's dosing 6mg Fri, 4mg Mon & Monday and recheck with f/u at cardiology & cardiac rehab starts next week Discuss plan of care discharged today with no further needs Discharge planning initiated and completed at visit today Wounds continue to heal with no concerns, scabs in place and PENNIE Patient aware to f/u with PCP for any further questions/concerns. documented in this encounter Plan of Treatment Not on file documented as of this encounter Procedures Procedure Name Priority Date/Time Associated Diagnosis Comments POCT PROTHROMBIN TIME/INR Routine 12/01/2023 11:46 AM CDT documented in this encounter Results * POCT PT/INR (12/01/2023 11:46 AM CDT) INR, POC 1.50 [facility] Comment:called Dr Shannon nelson update Blood 12/01/2023 11:4 6 AM CDT us Lorne Mcnulty MD POINT OF CARE TEST ORDERAB LES Final Result [facility] documented in this encounter Visit Diagnoses Not on filedocumented in this encounter Home Health Visit - Care Plan Visit Details Visit Type -SN OASIS Dischar ge Discipline -Penitentiary Problems Problem Description Start Date Status Goals Interve ntions Homebound Status Disciplines: Skilled Disciplines Patient's homebound status 11/05/2023 Resolved on 12/01/2023 1 goal linked to scheduled/docume nted intervention 1 goal intervention scheduled/documen marcelo in this visit Medications Disciplines: Penitentiary Management of home medications 11/05/2023 Resolved on 12/01/2023 1 goal linked to scheduled/docume nted intervention 2 goal interventions scheduled/documen marcelo in this visit Monitor patient's vital signs every home health visit Disciplines: SN, PT, OT, CARGO MATE, ELECTRICIAN SUPERVISOR AIRPLANE, Skilled Disciplines Monitor patient's vital signs every home health visit. 11/05/2023 Resolved on 12/01/2023 1 goal linked to scheduled/docume nted intervention 2 goal interventions scheduled/documen marcelo in this visit Labs Disciplines: Penitentiary Management of specimen samples, including lab draws, stool, urine, & tissue. 11/05/2023 Resolved on 12/01/2023 1 goal linked to scheduled/docume nted intervention 1 problem intervention scheduled/documen marcelo in this visit Multidisciplinar y Case Conference Disciplines: Skilled Disciplines Concurrently discusses plan of treatment and coordinate patient centered care 11/05/2023 Resolved on 12/01/2023 1 goal linked to scheduled/docume nted intervention 1 goal intervention scheduled/documen marcelo in this visit Infection Prevention Disciplines: Skilled Disciplines Infection Prevention 11/05/2023 Resolved on 12/01/2023 1 goal linked to scheduled/docume nted intervention 3 goal interventions scheduled/documen marcelo in this visit Safety concerns Disciplines: Skilled Disciplines Alteration in safety 11/05/2023 Resolved on 12/01/2023 1 goal linked to scheduled/docume nted intervention 3 goal interventions scheduled/documen marcelo in this visit Pain Disciplines: Core Disciplines Alteration in comfort 11/05/2023 Resolved on 12/01/2023 1 goal linked to scheduled/docume nted intervention 1 goal intervention scheduled/documen marcelo in this visit Goals Goal Associated Problem Outcome Goal Met? Visit Notes Patient receives care at the most appropriate care setting Description: Patient receives care at the most appropriate care setting. Homebound Status Adequate for Discharge No Patient receives care at the most appropriate care setting. Understand and follow medication therapy Description: Patient/Caregiver will verbalize understanding of purpose, side effects, and medication regimen in 4 weeks as evidenced by taking all medications as prescribed and no medication errors. Medications Adequate for Discharge No Patient/Caregiver will verbalize understanding of purpose, side effects, and medication regimen in 4 weeks as evidenced by taking all medications as prescribed and no medication errors. Measure vital signs during every home health visit during episode of care Description: Home printing technician to measure vital signs during every home health visit during episode of care. Monitor patient's vital signs every home health visit Adequate for Discharge No Home printing technician to measure vital signs during every home health visit during episode of care. Complete specimen as ordered Description: Complete specimen as ordered, Fingerstick INR's as ordered. Labs Adequate for Discharge No Complete specimen as ordered, Fingerstick INR's as ordered. Care team will coordinate care Description: Care team will coordinate care centered on patient needs throughout the episode of care. Multidisciplinary Case Conference Adequate for Discharge No Care team will coordinate care centered on patient needs throughout the episode of care. Verbalize signs of infection Description: Patient/caregiver will demonstrate knowledge of infection prevention strategies by verbalizing signs and symptoms of infection. Infection Prevention Adequate for Discharge No Patient/caregiver will demonstrate knowledge of infection prevention strategies by verbalizing signs and symptoms of infection. Demonstrate use of safety precautions Description: Patient/caregiver maintains safe home environment as evidenced by remaining free from injury and demonstrates use of safety precautions. Safety concerns Adequate for Discharge No Patient/caregiver maintains safe home environment as evidenced by remaining free from injury and demonstrates use of safety precautions. Report that pain has been reduced or controlled Description: Patient/caregiver/nikki duff will verbalize satisfaction with the patients level of pain and symptom control. Pain Adequate for Discharge No Patient/caregiver/britt polanco will verbalize satisfaction with the patients level of pain and symptom control. Interventions Intervention Associated Problem/Goal Status Variance Visit Notes Homebound Status Description: Patient is homebound due to medical condition, fall risk and pain limiting mobility as evidenced by CAD post-op. Problem:Homebound Status Goal:Patient receives care at the most appropriate care setting Completed Patient is homebound due to medical condition, fall risk and pain limiting mobility as evidenced by CAD post-op. Instruct on Medication Management Description: Assess patient/caregiver ability to demonstrate management of medications, steps to obtain new/refills of medications and identification of new or changed medications. Assess patient/caregiver ability to verbalize accurate dose/route/frequency/re ason for medication, how to evaluate effectiveness of medication, ongoing lab work needed to ensure therapeutic dosing, drug/food interactions, side effects/adverse reactions, contraindications for medications and known drug allergies. Evaluate the effectiveness of current treatment regimen and notify the appropriate healthcare provider for the need for changes in the plan of care. Problem:Medication s Goal:Understand and follow medication therapy Completed Assess patient/caregiver ability to demonstrate management of medications, steps to obtain new/refills of medications and identification of new or changed medications. Assess patient/caregiver ability to verbalize accurate dose/route/frequency/re ason for medication, how to evaluate effectiveness of medication, ongoing lab work needed to ensure therapeutic dosing, drug/food interactions, side effects/adverse reactions, contraindications for medications and known drug allergies. Evaluate the effectiveness of current treatment regimen and notify the appropriate healthcare provider for the need for changes in the plan of care. Instruct on High Risk Medications Description: Instruct patient/caregiver on oral or injectable high-risk medications, including: anticonvulsant, antiretroviral, anticoagulant, antibiotics, chemotherapeutic, hypoglycemic including insulin, immunosuppressant, antipsychotic, and opioids. Problem:Medication s Goal:Understand and follow medication therapy Completed Instruct patient/caregiver on oral or injectable high-risk medications, including: anticonvulsant, antiretroviral, anticoagulant, antibiotics, chemotherapeutic, hypoglycemic including insulin, immunosuppressant, antipsychotic, and opioids. Monitor Vital Signs Description: Monitor blood pressure, pulse, oxygen saturation, respirations Problem:Monitor patient's vital signs every home health visit Goal:Measure vital signs during every home health visit during episode of care Completed Monitor blood pressure, pulse, oxygen saturation, respirations Supervising Discipline notification of abnormal vital signs Description: Use standardized clinical guidelines of abnormal vitals signs to report to supervising discipline. (HR 50-110, SBP 90-160, DBP 40-90, O2Sat 88-100%, temporal temp less than 101.5) Problem:Monitor patient's vital signs every home health visit Goal:Measure vital signs during every home health visit during episode of care Completed Use standardized clinical guidelines of abnormal vitals signs to report to supervising discipline. (HR 50-110, SBP 90-160, DBP 40-90, O2Sat 88-100%, temporal temp less than 101.5) Draw Labs Description: Draw labs per aseptic technique via venipuncture/Fingerstic k INR's as ordered. May use butterfly if hard draw. Labs INR Frequency twice weekly Time Not timed lab. Fax results to Lorne Mcnulty MD. Ordering Lorne Jeffers MD. Record number of attempts, delivery to lab method, & confirmation details. Problem:Labs Completed Draw labs per aseptic technique via venipuncture/Fingerstic k INR's as ordered. May use butterfly if hard draw. Labs INR Frequency twice weekly Time Not timed lab. Fax results to Lorne Mcnulty MD. Ordering Lorne Jeffers MD. Record number of attempts, delivery to lab method, & confirmation details. Case Conference Description: Care team discuss plan of treatment on a continual basis to provide multidisciplinary team approach to care Problem:Multidisci plinary Case Conference Goal:Care team will coordinate care Completed Care team discuss plan of treatment on a continual basis to provide multidisciplinary team approach to care Educate Patient on Infection Prevention Description: Instruct patient on signs and symptoms of infection IE: fever, odor, change in color, increased amount of drainage, purulent drainage, warmth. Problem:Infection Prevention Goal:Verbalize signs of infection Completed Instruct patient on signs and symptoms of infection IE: fever, odor, change in color, increased amount of drainage, purulent drainage, warmth. Educate Family on Infection Prevention Description: Instructed family on signs and symptoms of infection IE: fever, odor, change in color, increased amount of drainage, purulent drainage, warmth. Problem:Infection Prevention Goal:Verbalize signs of infection Completed Instructed family on signs and symptoms of infection IE: fever, odor, change in color, increased amount of drainage, purulent drainage, warmth. Aspects of Care Description: Instruct patient/caregiver on universal precautions and home infection control measures Problem:Infection Prevention Goal:Verbalize signs of infection Completed Instruct patient/caregiver on universal precautions and home infection control measures Instruct Fall Prevention Description: Instruct patient/caregiver in methods to prevent falls Problem:Safety concerns Goal:Demonstrate use of safety precautions Completed Instruct patient/caregiver in methods to prevent falls Assess safety Description: Assess patient safety Problem:Safety concerns Goal:Demonstrate use of safety precautions Completed Assess patient safety Code Status Description: Discuss with patient/caregiver code status Problem:Safety concerns Goal:Demonstrate use of safety precautions Completed Discuss with patient/caregiver code status Instruct on pain management techniques Description: Instruct in pharmacologic and nonpharmacologic pain management techniques. Problem:Pain Goal:Report that pain has been reduced or controlled Completed Instruct in pharmacologic and nonpharmacologic pain management techniques. documented in this encounter Care Teams Treating And Pumping Supervisor Relationship Specialty Start Date End Date Aditya Castro MD [address] [facility] [place] [address] PCP - General 10/17/19 documented as of this encounter
--- OUTSIDE RECORDS SUMMARY | 2024-08-18 13:04 | XMS_ITS | Encounter Summary ---
Author Organization [facility] Healthcare Address [address] [place] [address] Care Team Providers Care Marine Fitter Name Role Phone Aditya Castro MD Primary Care Provider [phone] Alondra Lambert RN Unavailable [phone] Shannon Brock MD, Hamlet Gordon Unavailable [phone] Encounter Details Date Type Department Care Team (Late st Contact Info) Description 05/10/2024 Telephone [facility] Transplant Kidney [address] [facility] [address] [phone] [place], [place] [id number] Alondra Lambert, RN [address] [facility] [address] [place] [address] [id number] Social History Tobacco Use Types Packs/Day Years [...] often do you attend chur ch or jainism services? 1 to 4 times per year [...] place to sleep or slept in a half-way (including now)? No 10/16/2023 Personal Safety Answer Date Recorded Have you ever been in or are you currently in a harmful physical or emotional relationship or is someone making you feel afraid or unsafe? 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 We did the screening and started reviewing health history. Was called back. I told him I would call him back in about 45 minutes are so. documented in this encounter Plan of Treatment Not on file documented as of this encounter Visit Diagnoses Not on filedocumented in this encounter Care Teams Marine Fitter Relationship Specialty Start Date End Date Aditya Castro MD [address] [facility] [place] [address] PCP - General 10/17/19 Alondra Lambert, RN [address] [facility] [address] [place] [address] Electrician Yard 03/06/24 Hamlet Ortega Jr., MD [address] [place] [address] Consulting Physician Cardiovascular Disease 05/10/24 documented as of this encounter
--- OUTSIDE RECORDS SUMMARY | 2024-08-18 13:04 | XMS_ITS | Encounter Summary ---
Author Organization [facility] Healthcare Address [address] [place] [address] Care Team Providers Care Surgery Aide Name Role Phone Aditya Castro MD Primary Care Provider [phone] Alondra Lambert RN Unavailable [phone] Shannon Brock MD, Hamlet Gordillo. Unavailable [phone] Reason for Visit * Reason Onset Date Comments Appointment/Schedules 05/13/2024 Encounter Details Date Type Department Care Team (Late st Contact Info) Description 05/13/2024 Documentation [facility] and [facility] Transplant Kidney [id number] [place] [address] Melany Kelly Appointment/Schedules Social History Tobacco Use Types Packs/Day Years [...] materials from doctor or pharmacy Never 12/01/2023 [facility] Utilities Answer Date Recorded In [...] often do you attend chur ch or islam services? 1 to 4 times per year 10/16/2023 Do you belong to any clubs o r organizations such as adventism groups, unions, fraternal or athletic groups, or [...] place to sleep or slept in a skilled nursing (including now)? No 10/16/2023 Personal Safety Answer Date Recorded Have you ever been in or are you currently in a harmful physical or emotional relationship or is someone making you feel afraid or unsafe? 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 Gender Identity Not on file Sexual Orientation Not on file documented as of this encounter Progress Notes * Melany Kelly - 05/13/2024 11:02 AM CDT Scheduled C/C appointments for 07/29/2024 Scheduled Finance for 07/22/2024 Created schedule letter Will mail schedule, map, instructions, consents, and education to patient when in office documented in this encounter Plan of Treatment Not on file documented as of this encounter Visit Diagnoses Not on filedocumented in this encounter Care Teams Surgery Aide Relationship Specialty Start Date End Date Aditya Castro MD [address] [facility] [place] [address] PCP - General 10/17/19 Alondra Lambert, RN [address] [facility] [address] [place] [address] Firer Powerhouse 03/06/24 Hamlet Ortega Jr., MD [address] [place] [address] Consulting Physician Cardiovascular Disease 05/10/24 documented as of this encounter
--- OUTSIDE RECORDS SUMMARY | 2024-08-18 13:04 | XMS_ITS | Encounter Summary ---
Author Organization [facility] Healthcare Address [address] [place] [address] Care Team Providers Care Air Transport Professionals Name Role Phone Aditya Castro MD Primary Care Provider [phone] Alondra Lambert RN Unavailable [phone] Shannon Brock MD, Hamlet Gordon Unavailable [phone] Encounter Details Date Type Department Care Team (Late st Contact Info) Description 06/11/2024 Orders Only [facility] Medical Group Cardiology [address] [place] [address] Karen Barnes, ROBERTO [address] [place] [address] Social History Tobacco Use Types Packs/Day Years [...] materials from doctor or pharmacy Never 12/01/2023 [facility] Utilities Answer Date Recorded In the past [...] any clubs o r organizations such as protestant groups, unions, fraternal or athletic groups, or [...] in a usp (including now)? No 10/16/2023 Personal Safety Answer Date Recorded Have you ever been in or are you currently in a harmful physical or emotional relationship or is someone making you feel afraid or unsafe? 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 Gender Identity Not on file Sexual Orientation Not on file documented as of this encounter Plan of Treatment Not on file documented as of this encounter Procedures Procedure Name Priority Date/Time Associated Diagnosis Comments CARDIOLOGY DOCUMENT SCAN Routine 024 11:10 AM CDT documented in this encounter Results * Cardiology Document Scan (06/07/2024 11:10 AM CDT) Anatomical Region Laterality Modality Other Karen Barnes NP CV CARDIAC SERVICES PROCEDUR ES Final Result documented in this encounter Visit Diagnoses Not on filedocumented in this encounter Care Teams Air Transport Professionals Relationship Specialty Start Date End Date Aditya Castro MD [address] [facility] [place] [address] PCP - General 10/17/19 Alondra Lambert, RN [address] [facility] [address] [place] [address] Nozzle Operator 03/06/24 Hamlet Ortega Jr., MD [address] [place] [address] Consulting Physician Cardiovascular Disease 05/10/24 documented as of this encounter
--- OUTSIDE RECORDS SUMMARY | 2024-08-18 13:04 | XMS_ITS | Encounter Summary ---
Author Organization [facility] Healthcare Address [address] [place] [address] Care Team Providers Care Quality Assurance Advisor Name Role Phone Aditya Castro MD Primary Care Provider [phone] Alondra Lambert RN Unavailable [phone] Encounter Details Date Type Department Care Team (Late st Contact Info) Description 04/25/2024 Telephone [facility] and [facility] Transplant Kidney [address] [facility] [address] [phone] [place] [address] Chris Richard Social History Tobacco Use Types [...] from doctor or pharmacy Never 12/01/2023 [facility] Utilities Answer Date Recorded In the past 12 months has e electric, gas, oil, or water company [...] often do you attend chur ch or yazidi services? 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 Called back patient at [phone], requesting patient to fax his insurance card front and back toFinance. documented in this encounter Plan of Treatment Not on file documented as of this encounter Visit Diagnoses Not on filedocumented in this encounter Care Teams Quality Assurance Advisor Relationship Specialty Start Date End Date Aditya Castro MD [address] [facility] [place] [address] PCP - General 10/17/19 Alondra Lambert, RN [address] [address] Production Leader 03/06/24 documented as of this encounter
--- OUTSIDE RECORDS SUMMARY | 2024-08-18 13:04 | XMS_ITS | Encounter Summary ---
Author Organization [facility] Healthcare Address [address] [place] [address] Care Team Providers Care Chemistry Quality Control Technician Name Role Phone Aditya Castro MD Primary Care Provider [phone] Alondra Lambert RN Unavailable [phone] Shannon Brock MD, Hamlet Gordon Unavailable [phone] Encounter Details Date Type Department Care Team (Late st Contact Info) Description 05/10/2024 Telephone [facility] Transplant Kidney [address] [facility] [address] [id number] [place], [place] [id number] Alondra Lambert, RN [address] [facility] [address] [place] [address] [id number] Social History Tobacco Use Types Packs/Day Years [...] materials from doctor or pharmacy Never 12/01/2023 [facility] Utilities Answer Date Recorded In the [...] often do you attend chur ch or judaism services? 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 He needed some more time before he could talk. Will call me back after lunch. documented in this encounter Plan of Treatment Not on file documented as of this encounter Visit Diagnoses Not on filedocumented in this encounter Care Teams Chemistry Quality Control Technician Relationship Specialty Start Date End Date Aditya Castro MD [address] [facility] [place] [address] PCP - General 10/17/19 Alondra Lambert, RN [address] [facility] [address] [place] [address] Route Driver [employer] 03/06/24 Hamlet Ortega Jr., MD [address] [place] [address] Consulting Physician Cardiovascular Disease 05/10/24 documented as of this encounter
--- OUTSIDE RECORDS SUMMARY | 2024-08-18 13:04 | XMS_ITS | Encounter Summary ---
Author Organization [facility] Healthcare Address [address] [place] [address] Care Team Providers Care Tax Evaluator Name Role Phone Aditya Castro MD Primary Care Provider [phone] Alondra Lambert RN Unavailable [phone] Encounter Details Date Type Department Care Team (Late st Contact Info) Description 05/02/2024 Documentation [facility] and [facility] Transplant Kidney [address] [facility] [address] [phone] [place] [address] Melany Kelly Social History Tobacco Use Types [...] materials from doctor or pharmacy Never 12/01/2023 [facility] Utilities Answer Date Recorded In [...] often do you attend chur ch or yazidism services? 1 to 4 times per year [...] place to sleep or slept in a correction (including now)? No 10/16/2023 Personal Safety Answer Date Recorded Have you ever been in or are you currently in a harmful physical or emotional relationship or is someone making you feel afraid or unsafe? 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 documented in this encounter Plan of Treatment Not on file documented as of this encounter Visit Diagnoses Not on filedocumented in this encounter Care Teams Tax Evaluator Relationship Specialty Start Date End Date Aditya Castro MD [address] [facility] [place] [address] PCP - General 10/17/19 Alondra Lambert, RN [address] [facility] [address] [place] [id number] Independent Insurance Adjuster 03/06/24 documented as of this encounter
--- OUTSIDE RECORDS SUMMARY | 2024-08-18 13:04 | XMS_ITS | Encounter Summary ---
Author Organization [facility] Healthcare Address [address] [place] [address] Care Team Providers Care Blast Furnace Helper Name Role Phone Aditya Castro MD Primary Care Provider [phone] Alondra Lambert RN Unavailable [phone] Shannon Brock MD, Hamlet Gordon Unavailable [phone] Encounter Details Date Type Department Care Team (Late st Contact Info) Description 05/16/2024 Documentation [facility] and [facility] Transplant Kidney [phone] [place] [address] Melany Kelly Social History Tobacco Use Types [...] Never 12/01/2023 [facility] Utilities Answer Date Recorded In the past 12 months has [employer], gas, oil, or water company threatened to [...] often do you attend chur ch or evangelical services? 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 Gender Identity Not on file Sexual Orientation Not on file documented as of this encounter Progress Notes * Melany Kelly - 05/16/2024 9:00 AM CDT Mailed c/c folder, schedule, consents, etc documented in this encounter Plan of Treatment Not on file documented as of this encounter Visit Diagnoses Not on filedocumented in this encounter Care Teams Blast Furnace Helper Relationship Specialty Start Date End Date Aditya Castro MD [address] [facility] [place] [address] PCP - General 10/17/19 Alondra Lambert RN [address] [facility] [address] [place] [address] Outpatient Receptionist 03/06/24 Hamlet Ortega Jr., MD [address] [place] [address] Consulting Physician Cardiovascular Disease 05/10/24 documented as of this encounter
--- OUTSIDE RECORDS SUMMARY | 2024-08-18 13:04 | XMS_ITS | Encounter Summary ---
Author Organization [facility] Healthcare Address [address] [place] [address] Care Team Providers Care Rn Intake Name Role Phone Aditya Castro MD Primary Care Provider [phone] Alondra Lambert RN Unavailable [phone] Shannon Brock MD, [place] P. Unavailable [phone] Reason for Referral * (Routine) - Pending Review Specialty Diagnoses / Procedures Referred By Contac t Referred To Contact Diagnoses End stage renal disease (CMS/HCC) (HCC) Procedures Six Minute Walk - Jossie King MD [address] [place] [address] Phone: tel: fax: [facility] [address] [place] [address] Referral ID Status Reason Start Date Expiration Date V isits Requested Visits Authorized [id number] Pending Review 05/10/2024 06/09/2025 1 1 * Cardiology (Routine) - Pending Review Specialty Diagnoses / Procedures Referred By Contac t Referred To Contact Diagnoses End stage renal disease (CMS/HCC) (HCC) Procedures ECG 12 lead Jossie King MD [address] [place] [address] Phone: tel: fax: [address] [phone] Referral ID Status Reason Start Date Expiration Date V isits Requested Visits Authorized [id number] Pending Review 05/10/2024 06/09/2025 1 1 * Diagnostic Imaging (Routine) - Pending Review Specialty Diagnoses / Procedures Referred By Contac t Referred To Contact Diagnoses End stage renal disease (CMS/HCC) (HCC) Procedures XR Orthopantogram Panorex Jossie King MD [address] [address] Phone: tel: fax: [address] [phone] Referral ID Status Reason Start Date Expiration Date V isits Requested Visits Authorized [id number] Pending Review 05/10/2024 06/09/2025 1 1 * Diagnostic Imaging (Routine) - Pending Review Specialty Diagnoses / Procedures Referred By Contac t Referred To Contact Radiology Diagnoses End stage renal disease (CMS/HCC) (HCC) Procedures CT Abdomen Pelvis WO Contrast Jossie King MD [address] [address] Phone: tel: fax: [address] [phone] Referral ID Status Reason Start Date Expiration Date V isits Requested Visits Authorized [id number] Pending Review 05/10/2024 06/09/2025 1 1 Encounter Details Date Type Department Care Team (Late st Contact Info) Description 05/10/2024 Telephone [facility] Transplant Kidney [address] [facility] [phone] [place] [address] Alondra Lambert, RN [address] [facility] [address] [place] [address] Social History Tobacco Use Types Packs/Day Years [...] materials from doctor or pharmacy Never 12/01/2023 [facility] Utilities Answer Date Recorded In the past 12 months has th e [employer], gas, oil, or water [employer] threatened to shut off services in your [...] any clubs o r organizations such as hindu groups, unions, fraternal or athletic groups, or [...] place to sleep or slept in a assisted (including now)? No 10/16/2023 Personal Safety Answer Date Recorded Have you ever been in or are you currently in a harmful physical or emotional relationship or is someone making you feel afraid or unsafe? 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 Male 3:42 AM MUSIC SUPERVISOR Gender Identity Not on file Sexual Orientation Not on file documented as of this encounter Miscellaneous Notes * Telephone Encounter - Alondra Lambert RN - 05/10/2024 12:45 PM CDT Called patient and I explained the kidney transplant evaluation process in detail and answered all of his questions. I encouraged him to call with any questions at any time throughout the evaluation process explaining to him that we want him to have informed consent. I explained any potential donors have to call our office to initiate their donor evaluation and that I cannot give him any donor results, explaining I have to give the results to the donors only. I informed the patient that other departments may call or text to verify the appointments with them. I stressed that these appointments are not the first or only appointments for the day. The patientwill need to go by the schedule they receive from the transplant department. If they have any questions or need to reschedule, they are to call the transplant department at [phone]. Please schedule pt for the following Pt does dialysis PD Please obtain [phone]. Yes Transplant Education Video - this will be sent to your email Finance phone consult Day 1 -07/29/2024 1) Chest X-ray 2) Labs 3) EKG 4) Panorex 5) 6MW 6) NON-contrast CT of ab/pelvis 7) Clinic at 1 p.m. 8) SW No stress test is needed. documented in this encounter Plan of Treatment Scheduled Orders Name Type Priority Associated Diagnoses Orde r Schedule X-ray chest 2 views Imaging Schedule Routine, Read Routine (OP Routine) End stage renal disease (CMS/HCC) (HCC) Expected: 05/10/2024, Expires: 05/10/2025 documented as of this encounter Procedures Procedure Name Priority Date/Time Associated Diagnosis Comments SIX MINUTE WALK Routine 07/29/2024 2:46 PM MUSIC SUPERVISOR End stage renal disease (CMS/HCC) (HCC) documented in this encounter Results * Six Minute Walk - (07/29/2024 2:46 PM MUSIC SUPERVISOR) Anatomical Region Laterality Modality PFT Narrative 07/29/2024 3:52 PM MUSIC SUPERVISOR Table formatting from the original result was not included. Davey Pickard V., BUSINESS DEVELOPMENT AGENT on 07/29/2024 ??2:45 PM Table formatting from the original note was not included. 6 MINUTE WALK RESULTS Name: SamdreJuvenal Jr : 1970 DOS: 07/29/2024 Diagnosis: ESRD/KTE BUSINESS DEVELOPMENT AGENT performed walk: Carmenza Pickard Rest: 1 min [...] with exercise Jossie King MD RESPIRATORY CARE Sandip MARIN Final Result * CT Abdomen Pelvis WO Contrast (07/29/2024 12:43 PM MUSIC SUPERVISOR) Anatomical Region Laterality Modality Body N/A Computed Tomogra phy 07/29/2024 1:04 PM MUSIC SUPERVISOR Impressions 07/29/2024 1:04 PM MUSIC SUPERVISOR 1. ??Moderate discontinuous atherosclerotic calcifications involve the [...] Teresa Rivera M.D. Narrative 07/29/2024 1:04 PM MUSIC SUPERVISOR EXAMINATION: ??Computed tomography of the abdomen and [...] Electronically signed by: Maria Teresa Rivera M.D. 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 Electronically signed by: Julio Pinedo M.D. Narrative 07/29/2024 12:59 PM MUSIC SUPERVISOR EXAMINATION: XR ORTHOPANTOGRAM/PANOREX HISTORY: Kidney Transplant Evaluation [...] * Type and screen (07/29/2024 11:23 AM MUSIC SUPERVISOR) Maribel, indirect Negative ABO Rh A Positive [facility] Blood 07/29/2024 11:2 3 AM MUSIC SUPERVISOR 07/29/2024 11:43 AM MUSIC SUPERVISOR Narrative [facility] - 07/29/2024 12:45 PM MUSIC SUPERVISOR Please draw the ABO and the Type and Screen as two separate blood draws with each stamped with the two different times stamps as this is a regulatory requirement for this patient to be listed for Kidney Transplant. ??This lab is being obtained as part of a Kidney transplant evaluation, is time sensitive, and should only be drawn during the evaluation visit at [facility] Lab. Has the patient had Daratumumab or Isatuximab in the past 6 months?->Unknown Jossie King MD LAB BLOOD BANK ERNESTO T ORDERABLES Final Result [facility] [place] [address] * ECG 12 lead (07/29/2024 11:14 AM MUSIC SUPERVISOR) Ventricular Rate EKG/Min 117 BPM [facility] Atrial Rate 117 BPM [facility] VT-Interval (MSEC) 144 ms [facility] QRS-Interval (MSEC) 126 ms [facility] QT-Interval (MSEC) 366 ms [facility] QTc 510 ms [facility] R [place] -40 degrees [facility] T [place] 147 degrees [facility] Diagnosis Poor data quality, interpretation may [...] SAL M.D ([id number]) on 07/29/2024 3:38:41 PM [facility] 07/29/2024 11:1 4 AM MUSIC SUPERVISOR 07/29/2024 3:38 PM MUSIC SUPERVISOR Jossie King MD ECG ORDERABLES Fi nal Result [facility] * PSA screen (07/29/2024 11:01 AM MUSIC SUPERVISOR) PSA-Total 0.55 <=3.90 ng/mL Comment: Interpretive Data [...] revised 21. Blood 07/29/2024 11:0 1 AM MUSIC SUPERVISOR 07/29/2024 11:33 AM MUSIC SUPERVISOR Narrative [facility] - 07/29/2024 12:39 PM MUSIC SUPERVISOR This lab is being obtained as part of a Kidney transplant evaluation, is time sensitive, and should only be drawn during the evaluation visit at [facility] Lab. Jossie King MD LAB BLOOD ORDERABL ES Final Result Performing Organization Address [facility] de Phone Number [facility] Department [place] [address] * Collection Task for HLA Antibody Screen (07/29/2024 11:01 AM MUSIC SUPERVISOR) HLA Antibody Screen By Single Antigen Received Blood 07/29/2024 11:0 1 AM MUSIC SUPERVISOR 07/29/2024 11:56 AM MUSIC SUPERVISOR Jossie King MD LAB BLOOD ORDERABL ES Final Result Performing Organization Address [facility] de Phone Number [facility] [place] [address] * HLA Antibody Screen - SAB (Class I and Class II) (07/29/2024 11:01 AM MUSIC SUPERVISOR) Class I Treatment EDTA [facility] Class I [...] DR52 [facility] Blood 07/29/2024 11:0 1 AM MUSIC SUPERVISOR 08/02/2024 9:46 AM MUSIC SUPERVISOR Narrative [facility] - 08/02/2024 9:46 AM MUSIC SUPERVISOR Single-antigen HLA antibody screen is performed on serum samples using a method developed and validated by the [facility] HLA laboratory based on an FDA-approved IVD kit (LABScreen Single-Antigen, [employer], [place], [place]). All patient serum samples are pretreated with EDTA before the screen to prevent complement interference. Additional serum treatments, such as adsorption and DTT treatment, may be performed as indicated. ??Interpretive comments: Low risk: MFI [id number]. Moderate risk: MFI [id number]. Increased risk: MFI >/= 5000. The presence [...] antigens to avoid. Testing performed at the [facility] Laboratory, [address] [place] [address], 5th floor, [facility], [place], [address]. [place] # [id number]. Dorothy Meade, Ph.D., Soap Drier Tender, HLA Laboratory Rell Samuels M.D., Ph.D., Reformatory Attendant, HLA Laboratory Licha Nieto, Ph.D., CLIA Reformatory Attendant, [facility] Clinical Laboratories Current methodology and interpretive comments last revised on 09/15/2022. Jossie King MD LAB BLOOD ORDERABL ES Final Result [facility] * Collection Task for HLA Typing 2, Patient (07/29/2024 11:01 AM MUSIC SUPERVISOR) HLA Class II DNA (DR, DQ, DP) Recipient Received Blood 07/29/2024 11:0 1 AM MUSIC SUPERVISOR 07/29/2024 11:56 AM MUSIC SUPERVISOR Jossie King MD LAB BLOOD ORDERABL ES Final Result Performing Organization Address [facility] Co de Phone Number [facility] Department [place] [address] * Collection Task for HLA Typing 1 (07/29/2024 11:01 AM MUSIC SUPERVISOR) HLA Class I DNA (ABC) Recipient Received Blood 07/29/2024 11:0 1 AM MUSIC SUPERVISOR 07/29/2024 11:56 AM MUSIC SUPERVISOR Jossie King MD LAB BLOOD ORDERABL ES Final Result Performing Organization Address [facility] Co de Phone Number [facility] [place] [address] * LR HLA Typing (Class I and Class II) (07/29/2024 11:01 AM MUSIC SUPERVISOR) r-SSO HISTOTRAC A [place] A*03 HISTOTRAC [...] 07/30/24 [facility] Blood 07/29/2024 11:0 1 AM MUSIC SUPERVISOR 08/02/2024 9:03 AM MUSIC SUPERVISOR Narrative [facility] - 08/02/2024 9:03 AM MUSIC SUPERVISOR DNA was extracted from whole blood or buccal cell specimens, and relevant genomic regions were amplified by polymerase chain reactions (PCR). HLA typing was performed on PCR amplicons using reverse sequence-specific oligonucleotide (r-SSO) and/or sequence-specific primers (SSP) based techniques. r-SSO and SSP are FDA approved as IVD tests and validated by the [facility] Laboratory. Testing performed at the [facility], [address] [place] [address], 5th floor, [place], [address]. [place] # [id number]. Dorothy Meade, Ph.D., Soap Drier Tender, HLA Laboratory Rell Samuels M.D., Ph.D., Reformatory Attendant, HLA Laboratory Licha Nieto, Ph.D., CLIA Reformatory Attendant, [facility] Clinical Laboratories Current methodology comment last revised on 04/25/17. Jossie King MD LAB BLOOD ORDERABL ES Final Result [facility] * (ABNORMAL) Uric acid (07/29/2024 11:01 AM MUSIC SUPERVISOR) Pathologist [facility] Uric acid 2.0(L) 3.0 - 8.0 mg/dL Blood 07/29/2024 11:0 1 AM MUSIC SUPERVISOR 07/29/2024 11:33 AM MUSIC SUPERVISOR Narrative [facility] - 07/29/2024 12:10 PM MUSIC SUPERVISOR This lab is being obtained as part of a Kidney transplant evaluation, is time sensitive, and should only be drawn during the evaluation visit at [address] Jossie King MD LAB BLOOD ORDERABL ES Final Result Performing Organization Address [facility] de Phone Number [facility] Department [place] [address] * Varicella Zoster IgG antibody Blood (07/29/2024 11:01 AM MUSIC SUPERVISOR) [facility] VZV IgG Reactive Reactive Comment:Reactive: Results diego ggest response to immunization or prior exposure to the virus. Blood 07/29/2024 11:0 1 AM MUSIC SUPERVISOR 07/29/2024 11:33 AM MUSIC SUPERVISOR Narrative [facility] 07/29/2024 1:45 PM MUSIC SUPERVISOR This lab is being obtained as part of a Kidney transplant evaluation, is time sensitive, and should only be drawn during the evaluation visit at [address] Jossie King MD LAB MICROBIOLOGY - GENERAL ORDERABLES Final Result Performing Organization Address [facility] Co de Phone Number [facility] Department [place] [address] * RPR Blood (07/29/2024 11:01 AM MUSIC SUPERVISOR) Pathologist [facility] RPR Nonreactive Nonreactive Blood 07/29/2024 11:0 1 AM MUSIC SUPERVISOR 07/29/2024 11:33 AM MUSIC SUPERVISOR Narrative [facility] - 07/29/2024 12:34 PM MUSIC SUPERVISOR This lab is being obtained as part of a Kidney transplant evaluation, is time sensitive, and should only be drawn during the evaluation visit at [address] Jossie King MD LAB MICROBIOLOGY - GENERAL ORDERABLES Final Result Performing Organization Address [facility] de Phone Number [facility] [place] [employer] [place] [address] * (ABNORMAL) Protime-INR (07/29/2024 11:01 AM MUSIC SUPERVISOR) Pathologist [facility] PT 50.6(H) 9.7 - 13.0 sec INR 4.54(H) 0.90 - 1.20 [facility] Comment: Interpretive data Oral anticoagulant therapeutic ranges: Venous thromboembolism prophylaxis or treatment: 2.0-3.0 CARDIOLOGY Standard range: 2.0-3.0 High-intensity range: 2.5-3.5 Refer to indication-specific guidelines for appropriate target ranges for prosthetic heart valve replacement. Current interpretive data was last revised on 2019. Blood 07/29/2024 11:0 1 AM MUSIC SUPERVISOR 07/29/2024 11:32 AM MUSIC SUPERVISOR Narrative [facility] 07/29/2024 11:42 AM MUSIC SUPERVISOR This lab is being obtained as part of a Kidney transplant evaluation, is time sensitive, and should only be drawn during the evaluation visit at [address] Jossie King MD LAB BLOOD ORDERABL ES Final Result Performing Organization Address [facility] de Phone Number [facility] [place] [address] * Protein, urine, random (07/29/2024 11:01 AM MUSIC SUPERVISOR) Pathologist [facility] Protein, ur, quant 121.2 mg/dL Comment: Interpretive Data No reference range established. Current interpretive data was last revised 2019. Urine 07/29/2024 11:0 1 AM MUSIC SUPERVISOR 07/29/2024 11:32 AM MUSIC SUPERVISOR Narrative [facility] 07/29/2024 12:18 PM MUSIC SUPERVISOR This lab is being obtained as part of a Kidney transplant evaluation, is time sensitive, and should only be drawn during the evaluation visit at [address] Lab. Jossie King MD LAB URINE ORDERABL ES Final Result Performing Organization Address [facility] de Phone Number [facility] [place] [address] * (ABNORMAL) Phosphorus (07/29/2024 11:01 AM MUSIC SUPERVISOR) Phosphorus, pl 5.1(H) 2.3 - 4.5 mg/dL Blood 07/29/2024 11:0 1 AM MUSIC SUPERVISOR 07/29/2024 11:33 AM MUSIC SUPERVISOR Narrative [facility] 07/29/2024 12:10 PM MUSIC SUPERVISOR This lab is being obtained as part of a Kidney transplant evaluation, is time sensitive, and should only be drawn during the evaluation visit at [address] Lab[address] Jossie King MD LAB BLOOD ORDERABL ES Final Result Performing Organization Address [facility] [place] [address] * (ABNORMAL) aPTT (07/29/2024 11:01 AM MUSIC SUPERVISOR) aPTT 61(H) 28 - 38 sec Comment: Interpretive Data Heparin therapeutic range: 66.0 - 100.0 seconds. Range based on correlation with therapeutic heparin activity range of 0.3 - 0.7 Units/mL. Current interpretive data was last revised on 2023. Blood 07/29/2024 11:0 1 AM MUSIC SUPERVISOR 07/29/2024 11:32 AM MUSIC SUPERVISOR Narrative [facility] 07/29/2024 11:42 AM MUSIC SUPERVISOR This lab is being obtained as part of a Kidney transplant evaluation, is time sensitive, and should only be drawn during the evaluation visit at [address] Jossie King MD LAB BLOOD ORDERABL ES Final Result Performing Organization Address [facility] de Phone Number [facility] [place] [address] * (ABNORMAL) PTH (07/29/2024 11:01 AM MUSIC SUPERVISOR) [facility] PTH 444(H) 15 - 65 pg/mL Blood 07/29/2024 11:0 1 AM MUSIC SUPERVISOR 07/29/2024 11:34 AM MUSIC SUPERVISOR Narrative [facility] - 07/29/2024 12:02 PM MUSIC SUPERVISOR This lab is being obtained as part of a Kidney transplant evaluation, is time sensitive, and should only be drawn during the evaluation visit at [address] Lab. Jossie King MD LAB BLOOD ORDERABL ES Final Result Performing Organization Address [facility] de Phone Number [facility] Department [place] [address] * (ABNORMAL) Lipid panel (07/29/2024 11:01 AM MUSIC SUPERVISOR) [facility] Cholesterol 114 30 - 199 mg/dL [...] revised on 2018. Triglycerides 66 <=149 mg/dL [facility] Comment: Interpretive Data Ages < or [...] revised on 2018. HDL 29(L) >=40 mg/dL [facility] Comment: Interpretive Data Ages < or [...] on 2018. LDL, calculated 71 <=129 mg/dL [facility] Comment: Interpretive Data Ages < or [...] revised on 2024. Non-HDL Cholesterol 85 mg/dL [facility] Comment: Interpretive Data Ages < or [...] last revised on 2018. Chol/HDL ratio 4 [facility] Blood 07/29/2024 11:0 1 AM MUSIC SUPERVISOR 07/29/2024 11:33 AM MUSIC SUPERVISOR Narrative [facility] - 07/29/2024 12:10 PM MUSIC SUPERVISOR This lab is being obtained as part of a Kidney transplant evaluation, is time sensitive, and should only be drawn during the evaluation visit at [facility] Lab. Jossie King MD LAB BLOOD ORDERABL ES Final Result Performing Organization Address [facility] Co de Phone Number [facility] [place] [address] * (ABNORMAL) Iron profile w/ IBC (07/29/2024 11:01 AM MUSIC SUPERVISOR) [facility] Iron 62 50 - 150 mcg/dL TIBC 208(L) 250 - 400 mcg/dL [facility] Transferrin saturation 30 20 - 50 % [facility] Blood 07/29/2024 11:0 1 AM MUSIC SUPERVISOR 07/29/2024 11:33 AM MUSIC SUPERVISOR Narrative [facility] - 07/29/2024 12:10 PM MUSIC SUPERVISOR This lab is being obtained as part of a Kidney transplant evaluation, is time sensitive, and should only be drawn during the evaluation visit at [address] Lab. Jossie King MD LAB BLOOD ORDERABL ES Final Result Performing Organization Address [facility] de Phone Number [facility] [place] [address] * Hepatitis C antibody Blood (07/29/2024 11:01 AM MUSIC SUPERVISOR) [facility] Hep C Ab Nonreactive Nonreactive Comment:Antibodies to HCV no t detected. Does NOT exclude the possibility of recent exposure to HCV. Current interpretive data was last revised on 22 Blood 07/29/2024 11:0 1 AM MUSIC SUPERVISOR 07/29/2024 11:32 AM MUSIC SUPERVISOR Narrative [facility] - 07/29/2024 12:47 PM MUSIC SUPERVISOR This lab is being obtained as part of a Kidney transplant evaluation, is time sensitive, and should only be drawn during the evaluation visit at [address] Lab[address] Jossie King MD LAB MICROBIOLOGY - GENERAL ORDERABLES Final Result Performing Organization Address [facility] Co de Phone Number [facility] [place] [address] * Hepatitis B Surface Antigen Blood (07/29/2024 11:01 AM MUSIC SUPERVISOR) Pathologist [facility] HepBsAg Nonreactive Nonreactive Blood 07/29/2024 11:0 1 AM MUSIC SUPERVISOR 07/29/2024 11:32 AM MUSIC SUPERVISOR Narrative [facility] - 07/29/2024 12:47 PM MUSIC SUPERVISOR This lab is being obtained as part of a Kidney transplant evaluation, is time sensitive, and should only be drawn during the evaluation visit at [address] Lab. Jossie King MD LAB MICROBIOLOGY - GENERAL ORDERABLES Final Result Performing Organization Address [facility] Co de Phone Number [facility] [place] [address] * Hepatitis B surface antibody (immune status) Blood (07/29/2024 11:01 AM MUSIC SUPERVISOR) [facility] HBsAb (immune status) Reactive Comment:This result is consi stent with immunity to Hepatitis B Virus when used in the setting of routine screening. Current interpretive data was last revised on 22 Blood 07/29/2024 11:0 1 AM MUSIC SUPERVISOR 07/29/2024 11:32 AM MUSIC SUPERVISOR Narrative [facility] - 07/29/2024 12:47 PM MUSIC SUPERVISOR This lab is being obtained as part of a Kidney transplant evaluation, is time sensitive, and should only be drawn during the evaluation visit at [address] Jossie King MD LAB MICROBIOLOGY - GENERAL ORDERABLES Final Result [facility] [place] [address] * Hepatitis B core antibody, total Blood (07/29/2024 11:01 AM MUSIC SUPERVISOR) [facility] Hep B core IgG/IgM Nonreactive Nonreactive Blood 07/29/2024 11:0 1 AM MUSIC SUPERVISOR 07/29/2024 11:32 AM MUSIC SUPERVISOR Narrative [facility] - 07/29/2024 12:47 PM MUSIC SUPERVISOR This lab is being obtained as part of a Kidney transplant evaluation, is time sensitive, and should only be drawn during the evaluation visit at [address] Result [facility] Jossie King MD LAB MICROBIOLOGY - GENERAL ORDERABLES Final Result Performing Organization Address [facility] de Phone Number [facility] [place] [address] * (ABNORMAL) Hemoglobin A1c (07/29/2024 11:01 AM MUSIC SUPERVISOR) [facility] Hgb A1C 9.0(H) 4.0 - 5.6 % Estimated Average Glucose 212 mg/dL [facility] Comment: The ADA recommends reporting an estimated Average Glucose (eAG) with all Hemoglobin A1c results using the equation derived from a study of 507 normal and diabetic adults. ??Minority populations were underrepresented and children were not included. ?? (Diabetes Care 2020; 43(S1): S66-S76). ??The eAG is not equivalent to a fasting glucose. Blood 07/29/2024 11:0 1 AM MUSIC SUPERVISOR 07/29/2024 11:34 AM MUSIC SUPERVISOR Narrative [facility] - 07/29/2024 11:53 AM MUSIC SUPERVISOR This lab is being obtained as part of a Kidney transplant evaluation, is time sensitive, and should only be drawn during the evaluation visit at [address] Jossie King MD LAB BLOOD ORDERABL ES Final Result Performing Organization Address [facility] de Phone Number [facility] [place] [address] * HSV 2 IgG Antibody Blood (07/29/2024 11:01 AM MUSIC SUPERVISOR) [facility] HSV 2 IgG Nonreactive Nonreactive Comment: Interpretive Data 1. Nonreactive: No detectable IgG antibody to HSV-2. 2. Equivocal: Presence or absence of detectable antibodies to HSV-2 cannot be determined and the test should be repeated. 3. Reactive: Indicates presence of detectable IgG antibody to HSV-2. Current interpretive data was last revised on 2022. Blood 07/29/2024 11:0 1 AM MUSIC SUPERVISOR 07/29/2024 11:33 AM MUSIC SUPERVISOR Narrative [facility] - 07/29/2024 1:44 PM MUSIC SUPERVISOR This lab is being obtained as part of a Kidney transplant evaluation, is time sensitive, and should only be drawn during the evaluation visit at [address] Jossie King MD LAB MICROBIOLOGY - GENERAL ORDERABLES Final Result [facility] [place] [address] * (ABNORMAL) HSV 1 IgG Antibody Blood (07/29/2024 11:01 AM MUSIC SUPERVISOR) Pathologist [facility] HSV 1 IgG Reactive( A) Nonreactive Comment: Interpretive Data 1. Nonreactive: No detectable IgG antibody to HSV-1. 2. Equivocal: Presence or absence of detectable antibodies to HSV-1 cannot be determined and the test should be repeated. 3. Reactive: Indicates presence of detectable IgG antibody to HSV-1. Current interpretive data was last revised on 2016. Blood 07/29/2024 11:0 1 AM MUSIC SUPERVISOR 07/29/2024 11:33 AM MUSIC SUPERVISOR Narrative [facility] - 07/29/2024 1:44 PM MUSIC SUPERVISOR This lab is being obtained as part of a Kidney transplant evaluation, is time sensitive, and should only be drawn during the evaluation visit at [address] Lab[address] Jossie King MD LAB MICROBIOLOGY - GENERAL ORDERABLES Final Result [facility] [place] [address] * HIV 1/2 Antibody plus p24 Antigen Blood (07/29/2024 11:01 AM MUSIC SUPERVISOR) Pathologist [facility] HIV 1/2 ab + p24 ag Nonreactive Nonreactive Comment:Nonreactive for HIV- 1 antigen and HIV-1/HIV-2 antibodies. No laboratory evidence of HIV infection. If acute HIV infection is suspected, consider testing for HIV-1 RNA. Current interpretive data was last revised on 22. Blood 07/29/2024 11:0 1 AM MUSIC SUPERVISOR 07/29/2024 11:32 AM MUSIC SUPERVISOR Narrative [facility] - 07/29/2024 12:13 PM MUSIC SUPERVISOR This lab is being obtained as part of a Kidney transplant evaluation, is time sensitive, and should only be drawn during the evaluation visit at [address] Jossie King MD LAB MICROBIOLOGY - GENERAL ORDERABLES Final Result Performing Organization Address [facility] Co de Phone Number [facility] [place] [address] * Gamma GT (07/29/2024 11:01 AM MUSIC SUPERVISOR) Pathologist [facility] GGT 22 10 - 50 Units/L Blood 07/29/2024 11:0 1 AM MUSIC SUPERVISOR 07/29/2024 11:33 AM MUSIC SUPERVISOR Narrative [facility] - 07/29/2024 12:40 PM MUSIC SUPERVISOR This lab is being obtained as part of a Kidney transplant evaluation, is time sensitive, and should only be drawn during the evaluation visit at [address] Jossie King MD LAB BLOOD ORDERABL ES Final Result Performing Organization Address [facility] Co de Phone Number [facility] [place] [address] * (ABNORMAL) Ferritin (07/29/2024 11:01 AM MUSIC SUPERVISOR) Pathologist [facility] Ferritin 761(H) 30 - 400 ng/mL Blood 07/29/2024 11:0 1 AM MUSIC SUPERVISOR 07/29/2024 11:33 AM MUSIC SUPERVISOR Narrative [facility] - 07/29/2024 12:10 PM MUSIC SUPERVISOR This lab is being obtained as part of a Kidney transplant evaluation, is time sensitive, and should only be drawn during the evaluation visit at [address] Lab[address] Jossie King MD LAB BLOOD ORDERABL ES Final Result Performing Organization Address [facility] de Phone Number [facility] [place] [address] * (ABNORMAL) Madiha-Ca virus (EBV) antibody panel Blood (07/29/2024 11:01 AM MUSIC SUPERVISOR) [facility] EBV nuclear Ab Positive(A) Negative Comment:Indicates the presen ce of detectable IgG antibody to EBV Nuclear Antigen. EBV VCA IgG Positive(A) Negative [facility] Comment:Indicates the presen ce of antibody; 90% of the adult population will have been infected with EBV sometime in the past. EBV VCA IgM Negative Negative [facility] Comment:No detectable IgM an tibody to EBV-VCA. A negative result indicates no current infection with EBV. If clinical suspicion of acute EBV infection is present, testing should be repeated after one week. EBV interp Past Infection [facility] Blood 07/29/2024 11:0 1 AM MUSIC SUPERVISOR 07/29/2024 11:33 AM MUSIC SUPERVISOR Narrative [facility] - 07/29/2024 1:43 PM MUSIC SUPERVISOR This lab is being obtained as part of a Kidney transplant evaluation, is time sensitive, and should only be drawn during the evaluation visit at [address] Lab[address] Jossie King MD LAB MICROBIOLOGY - GENERAL ORDERABLES Final Result Performing Organization Address [facility] Co de Phone Number [facility] [place] [address] * Creatinine, urine, random (07/29/2024 11:01 AM MUSIC SUPERVISOR) [facility] Creatinine Ur 167.1 mg/dL Comment: Interpretive Data No reference range established. Current interpretive data was last revised 2019. Urine 07/29/2024 11:0 1 AM MUSIC SUPERVISOR 07/29/2024 11:32 AM MUSIC SUPERVISOR Narrative [facility] - 07/29/2024 12:18 PM MUSIC SUPERVISOR This lab is being obtained as part of a Kidney transplant evaluation, is time sensitive, and should only be drawn during the evaluation visit at [facility] Lab. Jossie King MD LAB URINE ORDERABL ES Final Result [facility] [place] [address] * (ABNORMAL) Comprehensive metabolic panel (07/29/2024 11:01 AM MUSIC SUPERVISOR) Sodium 136 135 - 145 mmol/L Potassium, pl 4.6 3.3 - 4.9 mmol/L [facility] Chloride 93(L) 97 - 110 mmol/L [facility] CO2 26 22 - 32 mmol/L [facility] Anion gap 17(H) 2 - 15 mmol/L [facility] BUN 65(H) 6 - 25 mg/dL [facility] Creatinine 8.07(H) 0.80 - 1.30 mg/dL [facility] Glucose 280(H) 70 - 199 mg/dL [facility] Comment: Interpretive Data Fasting glucose >/= [...] 2022. Calcium 9.4 8.5 - 10.3 mg/dL [facility] Bilirubin, total 0.3 0.1 - 1.2 mg/dL [facility] Protein, pl 7.2 6.5 - 8.5 g/dL [facility] Albumin 3.8 3.5 - 5.0 g/dL [facility] Alk phos 99 40 - 130 Units/L [facility] ALT 30 7 - 55 Units/L [facility] AST 31 10 - 50 Units/L [facility] Blood 07/29/2024 11:0 1 AM MUSIC SUPERVISOR 07/29/2024 11:33 AM MUSIC SUPERVISOR Narrative [facility] - 07/29/2024 12:10 PM MUSIC SUPERVISOR This lab is being obtained as part of a Kidney transplant evaluation, is time sensitive, and should only be drawn during the evaluation visit at [address] Jossie King MD LAB BLOOD ORDERABL ES Final Result Performing Organization Address [facility] Co de Phone Number [facility] [place] [address] * (ABNORMAL) CMV, IgG Blood (07/29/2024 11:01 AM MUSIC SUPERVISOR) Pathologist [facility] CMV IgG Positive( A) [...] CMV infection. Blood 07/29/2024 11:0 1 AM MUSIC SUPERVISOR 07/29/2024 11:33 AM MUSIC SUPERVISOR Narrative [facility] - 07/29/2024 1:44 PM MUSIC SUPERVISOR This lab is being obtained as part of a Kidney transplant evaluation, is time sensitive, and should only be drawn during the evaluation visit at [address] Jossie King MD LAB MICROBIOLOGY - GENERAL ORDERABLES Final Result Performing Organization Address City/[facility]/ZIP Co de Phone Number [facility] [place] [address] * (ABNORMAL) CBC with auto differential (07/29/2024 11:01 AM MUSIC SUPERVISOR) [facility] WBC 5.1 3.8 - 9.9 K/cumm Hgb 11.5(L) 13.0 - 17.5 g/dL [facility] Hct 34.4(L) 38.9 - 50.3 % [facility] Plt 208 150 - 400 K/cumm [facility] MPV 10.8 9.1 - 12.3 fL [facility] RBC 3.76(L) 4.30 - 5.80 M/cumm [facility] MCV 91.5 81.3 - 96.4 fL [facility] MCH 30.6 27.1 - 33.3 pg [facility] MCHC 33.4 32.3 - 35.7 g/dL [facility] RDW CV 14.3 11.1 - 14.9 % [facility] RDW SD 47.9 35.7 - 48.1 fL [facility] NRBC abs 0.00 0.00 - 0.01 K/cumm [facility] Blood 07/29/2024 11:0 1 AM MUSIC SUPERVISOR 07/29/2024 11:34 AM MUSIC SUPERVISOR Narrative [facility] - 07/29/2024 11:45 AM MUSIC SUPERVISOR This lab is being obtained as part of a Kidney transplant evaluation, is time sensitive, and should only be drawn during the evaluation visit at [facility] Lab. us Jossie King MD LAB BLOOD ORDERABL ES Final Result [facility] [place] [address] * (ABNORMAL) Urinalysis reflex to microscopic (07/29/2024 10:53 AM MUSIC SUPERVISOR) Color, ur Yellow Yellow Clarity, ur Cloudy(A) Clear [facility] Specific gravity, ur 1.022 1.003 - 1.030 [facility] pH, urine 6.0 [facility] Comment: Interpretive Data ? Urine pH is affected by diet, medications, systemic acid-base disturbances, and renal tubular function. ??pH may affect urinary stone formation. ??For example, urine pH below 6.0 may help reduce the tendency for calcium phosphate stones and pH greater than 6.0 may reduce the tendency for uric acid stone formation. Source: [facility] Laboratories Current Interpretive Data was last revised on 2017 Protein, ur ql 2+(A) Negative [facility] Glucose, ur ql 4+(A) Negative [facility] Ketones, ur Negative Negative [facility] Bilirubin, ur Negative Negative [facility] Blood, ur 3+(A) Negative [facility] Urobilinogen, ur <2.0 <2.0 mg/dL [facility] Nitrite, ur Negative Negative [facility] Leukocyte esterase, ur 2+(A) Negative [facility] UA reflex comment Reflex to microscopic UA will be performed. [facility] Urine 07/29/2024 10:5 3 AM MUSIC SUPERVISOR 07/29/2024 11:27 AM MUSIC SUPERVISOR Narrative [facility] - 07/29/2024 11:29 AM MUSIC SUPERVISOR This lab is being obtained as part of a Kidney transplant evaluation, is time sensitive, and should only be drawn during the evaluation visit at [facility] Lab. Jossie King MD LAB URINE ORDERABL ES Final Result [facility] [place] [address] documented in this encounter Visit Diagnoses Diagnosis End stage renal disease (CMS/HCC) (HCC)- Primary End stage renal disease End stage renal disease (CMS/HCC) (HCC) End stage renal disease End stage renal disease (CMS/HCC) (HCC) End stage renal disease ESRD (end stage renal disease) (CMS/HCC) (HCC) End stage renal disease End stage renal disease (CMS/HCC) (HCC) End stage renal disease documented in this encounter Care Teams Rn Intake Relationship Specialty Start Date End Date Aditya Castro MD [address] [facility] [place] [address] PCP - General 10/17/19 Alondra Lambert, RN [address] [facility] [address] [place] [address] Land Measurer 03/06/24 Hamlet Ortega Jr., MD [address] [place] [address] Consulting Physician Cardiovascular Disease 05/10/24 documented as of this encounter
--- OUTSIDE RECORDS SUMMARY | 2024-08-18 13:05 | XMS_ITS | Encounter Summary ---
Author Organization [facility] Healthcare Address [address] [place] [address] Care Team Providers Care Highway Landscape Architect Name Role Phone Aditya Castro MD Primary Care Provider [phone] Reason for Visit * Auth/Cert (Routine) Specialty Diagnoses / Procedures Referred By Aguilar t Referred To Contact Referral ID Status Reason Start Date Expiration Date Visits Re quested Visits Authorized [id number] 1 1 Encounter Details Date Type Department Care Team (Late st Contact Info) Description 11/09/2023 12:00 PM CDT Home Care Visit [address] [place] [address] Miriam Syed RN SN HOME VISIT Social History Tobacco Use Types Packs/Day Years Used Date Smoking Tobacco: Never Smokeless Tobacco: Former Alcohol Use Standard Drinks/Week Comments No 0 (1 standard drink = 0.6 oz pur e alcohol) OASIS D0700: Social Isolation Answer Da te Recorded Frequency of experiencing loneliness or isolatio n Never 11/05/2023 OASIS A1250: Transportation Answer Date Recorded Lack of Transportation (Medical) No 11/05/2023 Lack of Transportation (Non-Medical) No 11/05/2023 Patient Unable or Declines to Respond No 11/05/2023 OASIS B1300: Health Literacy Answer Rubens e Recorded Frequency of needing help to read materials from doctor or pharmacy Never 11/05/2023 [facility] Utilities Answer Date Recorded In the past 12 months has th e [employer], gas, oil, or water company threatened [...] often do you attend chur ch or gnosticist services? 1 to 4 times per year [...] on file Legal Sex Male 3:42 AM DOCTOR OF AUDIOLOGY Gender Identity Not on file Sexual Orientation Not on file documented as of this encounter Last Filed Vital Signs Vital Sign Reading Time Taken Comments Blood Pressure 132/60 11/09/2023 11:33 AM CDT Pulse 64 11/09/2023 11:33 AM CDT Temperature 36.5 ??C (97.7 ??F) 11/09/2023 11:33 AM C DT Respiratory Rate 16 11/09/2023 11:33 AM CDT Oxygen Saturation 98% 11/09/2023 11:33 AM CDT Inhaled Oxygen Concentration - - Weight - - Height - - Body Mass Index - - documented in this encounter Miscellaneous Notes * Home Health Plan for Next Visit - Miriam Syed RN - 11/09/2023 11:33 AM CDT Reason for today's visit wound care & INR result 5.[address] Mcnulty's office awaitingNO's. Upon call back hold Warfarin next two days & Monday, take 2 mg Sat & Sun evenings and recheck INR Monday11/13/23. Discuss plan of care ongoing with wound care Discharge planning initiated and ongoing Plan for next visit wound care documented in this encounter Plan of Treatment Not on file documented as of this encounter Visit Diagnoses Not on filedocumented in this encounter Home Health Visit - Care Plan Visit Details Visit Type -SN Home Visit Discipline -Prison Problems Problem Description Start Date Status Goals Interve ntions Homebound Status Disciplines: Skilled Disciplines Patient's homebound status 11/05/2023 Active 1 goal linked to scheduled/documen marcelo intervention 1 goal intervention scheduled/documen marcelo in this visit Medications Disciplines: Prison Management of home medications 11/05/2023 Active 1 goal linked to scheduled/documen marcelo intervention 2 goal interventions scheduled/documen marcelo in this visit Monitor patient's vital signs every home health visit Disciplines: SN, PT, OT, DEPORTATION OFFICER, TRANSPLANTER ORCHID, Skilled Disciplines Monitor patient's vital signs every home health visit. 11/05/2023 Active 1 goal linked to scheduled/documen marcelo intervention 1 goal intervention scheduled/documen marcelo in this visit Labs Disciplines: Prison Management of specimen samples, including lab draws, stool, urine, & tissue. 11/05/2023 Active - 1 problem intervention scheduled/documen marcelo in this visit Infection Prevention Disciplines: Skilled Disciplines Infection Prevention 11/05/2023 Active 1 goal linked to scheduled/documen marcelo intervention 2 goal interventions scheduled/documen marcelo in this visit Safety concerns Disciplines: Skilled Disciplines Alteration in safety 11/05/2023 Active 1 goal linked to scheduled/documen marcelo intervention 2 goal interventions scheduled/documen marcelo in this visit Pain Disciplines: Core Disciplines Alteration in comfort 11/05/2023 Active 1 goal linked to scheduled/documen marcelo intervention 1 goal intervention scheduled/documen marcelo in this visit Goals Goal Associated Problem Outcome Goal Met? Visit Notes Patient receives care at the most appropriate care setting Description: Patient receives care at the most appropriate care setting. Homebound Status No Understand and follow medication therapy Description: Patient/Caregiver will verbalize understanding of purpose, side effects, and medication regimen in 4 weeks as evidenced by taking all medications as prescribed and no medication errors. Medications No Measure vital signs during every home health visit during episode of care Description: Home mental health clinician to measure vital signs during every home health visit during episode of care. Monitor patient's vital signs every home health visit No Verbalize signs of infection Description: Patient/caregiver will demonstrate knowledge of infection prevention strategies by verbalizing signs and symptoms of infection. Infection Prevention No Demonstrate use of safety precautions Description: Patient/caregiver maintains safe home environment as evidenced by remaining free from injury and demonstrates use of safety precautions. Safety concerns No Report that pain has been reduced or controlled Description: Patient/caregiver/family will verbalize satisfaction with the patients level of pain and symptom control. Pain No Interventions Intervention Associated Problem/Goal Status Variance Visit [...] medications. Assess patient/caregiver ability to verbalize accurate dose/route/frequency/reas on for medication, how to evaluate effectiveness of medication, ongoing lab work needed to ensure therapeutic dosing, drug/food interactions, side effects/adverse reactions, contraindications for medications and known drug allergies. Evaluate the effectiveness of current treatment regimen and notify the appropriate healthcare provider for the need for changes in the plan of care. Problem:Medications Goal:Understand and follow medication therapy Scheduled Instruct on High Risk Medications Description: Instruct patient/caregiver on oral or injectable high-risk medications, including: anticonvulsant, antiretroviral, anticoagulant, antibiotics, chemotherapeutic, hypoglycemic including insulin, immunosuppressant, antipsychotic, and opioids. Problem:Medications Goal:Understand and follow medication therapy Scheduled Monitor Vital Signs Description: Monitor blood pressure, pulse, oxygen saturation, respirations Problem:Monitor patient's vital signs every home health visit Goal:Measure vital signs during every home health visit during episode of care Completed Monitor blood pressure, pulse, oxygen saturation, respirations Draw Labs Description: Draw labs per aseptic technique via venipuncture/Fingerstick INR's as ordered. May use butterfly if hard draw. Labs INR Frequency twice weekly Time Not timed lab. Fax results to Lorne Mcnulty MD. Ordering Lorne Jeffers MD. Record number of attempts, delivery to lab method, & confirmation details. Problem:Labs Completed Draw labs per aseptic technique via venipuncture/Finger stick INR's as ordered. May use butterfly if hard draw. Labs INR Frequency twice weekly Time Not timed lab. Fax results to Lorne Mcnulty MD. Ordering Lorne Jeffers MD. Record number of attempts, delivery to lab method, & confirmation details. Educate Patient on Infection Prevention Description: Instruct patient on signs and symptoms of infection IE: fever, odor, change in color, increased amount of drainage, purulent drainage, warmth. Problem:Infection Prevention Goal:Verbalize signs of infection Scheduled Educate Family on Infection Prevention Description: Instructed family on signs and symptoms of infection IE: fever, odor, change in color, increased amount of drainage, purulent drainage, warmth. Problem:Infection Prevention Goal:Verbalize signs of infection Scheduled Instruct Fall Prevention Description: Instruct patient/caregiver in methods to prevent falls Problem:Safety concerns Goal:Demonstrate use of safety precautions Scheduled Assess safety Description: Assess patient safety Problem:Safety concerns Goal:Demonstrate use of safety precautions Scheduled Instruct on pain management techniques Description: Instruct in pharmacologic and nonpharmacologic pain management techniques. Problem:Pain Goal:Report that pain has been reduced or controlled Scheduled documented in this encounter Care Teams Highway Landscape Architect Relationship Specialty Start Date End Date Aditya Castro MD [address] [facility] [place] [address] PCP - General 10/17/19 documented as of this encounter
--- OUTSIDE RECORDS SUMMARY | 2024-08-18 13:05 | XMS_ITS | Encounter Summary ---
Author Organization [facility] Healthcare Address [address] [place] [address] Care Team Providers Care Hospital Cna Name Role Phone Aditya Castro MD Primary Care Provider [phone] Encounter Details Date Type Department Care Team (Late st Contact Info) Description 11/05/2023 Plan of Care Documentation [facility] Health [place] [address] [address] [place] [id number] Social History Tobacco Use Types Packs/Day Years [...] materials from doctor or pharmacy Never 11/05/2023 [facility] Utilities Answer Date Recorded In the past 12 months has e [employer], gas, oil, or water company threatened to [...] often do you attend chur ch or baptist services? 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 The patient is under my care, and I have authorized serviceson this plan of care and will periodically review the plan. The patient had a [id number] encounter with Lorne Mcnulty MD on 10/20/2023 and the encounter was related to the primary reason for home health care. documented in this encounter Plan of Treatment Not on file documented as of this encounter Visit Diagnoses Not on filedocumented in this encounter Care Teams Hospital Cna Relationship Specialty Start Date End Date Aditya Castro MD [address] [facility] [place] [address] PCP - General 10/17/19 documented as of this encounter
--- OUTSIDE RECORDS SUMMARY | 2024-08-18 13:05 | XMS_ITS | Encounter Summary ---
Author Organization [facility] Healthcare Address [address] [place] [address] Care Team Providers Care Land Inspector Name Role Phone Aditya Castro MD Primary Care Provider [phone] Reason for Visit * Reason Onset Date Comments Anticoagulation 11/20/2023 Encounter Details Date Type Department Care Team (Late st Contact Info) Description 11/20/2023 Telephone Cardiovascular and Thoracic Surgery [address] [facility] [address] [place] [address] Margoth Grewal RN [address] [facility] [address], [place] [address] Anticoagulation Social History Tobacco Use [...] materials from doctor or pharmacy Never 11/05/2023 [facility] Utilities Answer Date Recorded In the past 12 months has e [employer], [employer], or [employer] threatened to shut off services in your [...] place to sleep or slept in a detention (including now)? No 10/16/2023 Personal Safety Answer Date Recorded Have you ever been in or are you currently in a harmful physical or emotional relationship or is someone making you feel afraid or unsafe? 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 Mcnulty patient Contact: LUAN Pineda called to report an INR of 2.1 and he's taking 3 mg. INR 2.1 Continue Coumadin 3 mg daily and recheck INR 11/23/23. Miriam will instruct pt. documented in this encounter Plan of Treatment Not on file documented as of this encounter Visit Diagnoses Not on filedocumented in this encounter Care Teams Land Inspector Relationship Specialty Start Date End Date Aditya Castro MD [address] [facility] [place] [address] PCP - General 10/17/19 documented as of this encounter
--- OUTSIDE RECORDS SUMMARY | 2024-08-18 13:05 | XMS_ITS | Encounter Summary ---
Author Organization [facility] Healthcare Address [address] [place] [address] Care Team Providers Care Patient Consumer Marketer Name Role Phone Aditya Castro MD Primary Care Provider [phone] Reason for Visit * Auth/Cert (Routine) Specialty Diagnoses / Procedures Referred By Aguilar t Referred To Contact Referral ID Status Reason Start Date Expiration Date Visits Re quested Visits Authorized [id number] 1 1 Encounter Details Date Type Department Care Team (Late st Contact Info) Description 11/16/2023 12:00 PM CDT Home Care Visit [address] [place] [address] Miriam Syed RN SN HOME VISIT Social [...] materials from doctor or pharmacy Never 11/05/2023 [facility] Utilities Answer Date Recorded In the past 12 months has th e [employer], gas, oil, or water company threatened to [...] often do you attend chur ch or jewish services? 1 to 4 times per year 10/16/2023 Do you belong to any clubs o r organizations such as jainism groups, unions, fraternal or athletic groups, or [...] place to sleep or slept in a fci (including now)? No 10/16/2023 Personal Safety Answer Date Recorded Have you ever been in or are you currently in a harmful physical or emotional relationship or is someone making you feel afraid or unsafe? 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 Gender Identity Not on file Sexual Orientation Not on file documented as of this encounter Last Filed Vital Signs Vital Sign Reading Time Taken Comments Blood Pressure 124/62 11/16/2023 11:44 AM CDT Pulse 70 11/16/2023 11:44 AM CDT Temperature 36.6 ??C (97.8 ??F) 11/16/2023 11:44 AM C DT Respiratory Rate 16 11/16/2023 11:44 AM CDT Oxygen Saturation 96% 11/16/2023 11:44 AM CDT Inhaled Oxygen Concentration - - Weight - - Height - - Body Mass Index - - documented in this encounter Miscellaneous Notes * Home Health Plan for Next Visit - Miriam Syed RN - 11/16/2023 12:06 PM CDT Reason for today's visit wound care & INR result 1.8 awaiting NO's, 3 mg Mon, Mon & Sun evenings recheck INR Monday. Discuss plan of care ongoing with wound care Discharge planning initiated and ongoing Plan for next visit wound care documented in this encounter Plan of Treatment Not on file documented as of this encounter Procedures Procedure Name Priority Date/Time Associated Diagnosis Comments POCT PROTHROMBIN TIME/INR Routine 11/16/2023 12:06 PM CDT documented in this encounter Results * POCT PT/INR (11/16/2023 12:06 PM CDT) INR, POC 1.80 HH POCT RESULTING LABORATORY Comment:Awaiting NO's for ne xt INR and dosing from Dr Mcnulty's office Blood 11/16/2023 12:0 6 PM CDT us Lorne Mcnulty MD POINT OF CARE TEST ORDERAB LES Final Result POCT RESULTING LABORATORY documented in this encounter Visit Diagnoses Not on filedocumented in this encounter Home Health Visit - Care Plan Visit Details Visit Type -SN Home Visit Discipline -Custodial Problems Problem Description Start Date Status Goals Interve ntions Homebound Status Disciplines: Skilled Disciplines Patient's homebound status 11/05/2023 Active 1 goal linked to scheduled/documen marcelo intervention 1 goal intervention scheduled/documen marcelo in this visit Medications Disciplines: Custodial Management of home medications 11/05/2023 Active 1 goal linked to scheduled/documen marcelo intervention 2 goal interventions scheduled/documen marcelo in this visit Monitor patient's vital signs every home health visit Disciplines: SN, PT, OT, COLLAR WORKER, LOOM CLEANER, Skilled Disciplines Monitor patient's vital signs every home health visit. 11/05/2023 Active 1 goal linked to scheduled/documen marcelo intervention 1 goal intervention scheduled/documen marcelo in this visit Labs Disciplines: Custodial Management of specimen samples, including lab draws, [...] visit during episode of care Description: Home animation director to measure vital signs during every home [...] medications. Assess patient/caregiver ability to verbalize accurate dose/route/frequency/reaso n for medication, how to evaluate effectiveness of [...] health visit during episode of care Completed Patient is homebound due to medical condition, fall risk and pain limiting mobility as evidenced by CAD post-op. Draw Labs Description: Draw labs per aseptic technique via venipuncture/Fingerstick INR's as ordered. May use butterfly if hard draw. Labs INR Frequency twice weekly Time Not timed lab. Fax results to Lorne Mcnulty MD. Ordering Lorne Jeffers MD. Record number of attempts, delivery to lab method, & confirmation details. Problem:Labs Scheduled Educate Patient on Infection Prevention Description: Instruct [...] Scheduled documented in this encounter Care Teams Patient Consumer Marketer Relationship Specialty Start Date End Date Aditya Castro MD [address] [facility] [place] [address] PCP - General 10/17/19 documented as of this encounter
--- OUTSIDE RECORDS SUMMARY | 2024-08-18 13:05 | XMS_ITS | Encounter Summary ---
Author Organization [facility] Healthcare Address [address] [place] [address] Care Team Providers Care Associate Professor Of Library Media Name Role Phone Aditya Castro MD Primary Care Provider Reason for Visit * Auth/Cert (Routine) Specialty Diagnoses / Procedures Referred By Aguilar t Referred To Contact Referral ID Status Reason Start Date Expiration Date Visits Re quested Visits Authorized [id number] 1 1 Encounter Details Date Type Department Care Team (Latest Contact Info) Description 11/05/2023 9:00 AM CDT Home Care Visit [address] [place] [address] Miriam Syed RN SN OASIS START OF CARE Social History Tobacco Use Types Packs/Day Years [...] materials from doctor or pharmacy Never 11/05/2023 [facility] Utilities Answer Date Recorded In the past [...] any clubs o r organizations such as holiness groups, unions, fraternal or athletic groups, or [...] place to sleep or slept in a fdc (including now)? No 10/16/2023 Personal Safety Answer Date Recorded Have you ever been in or are you currently in a harmful physical or emotional relationship or is someone making you feel afraid or unsafe? 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 Gender Identity Not on file Sexual Orientation Not on file documented as of this encounter Last Filed Vital Signs Vital Sign Reading Time Taken Comments Blood Pressure 142/60 11/05/2023 10:22 AM CDT Pulse 79 11/05/2023 10:22 AM CDT Temperature 36.4 ??C (97.6 ??F) 11/05/2023 10:22 AM C DT Respiratory Rate 18 11/05/2023 10:22 AM CDT Oxygen Saturation 97% 11/05/2023 10:22 AM CDT Inhaled Oxygen Concentration - - Weight 121.1 kg (267 lb) 11/05/2023 10:22 AM CDT Height - - Body Mass Index 38.31 10/17/2023 12:52 PM YAM CURER documented in this encounter Miscellaneous Notes * Home Health/Infusion SHAJI - Miriam Syed RN - 11/05/2023 12:50 PM CDT SITUATION Focus of Care: CAD post-op follow, wound care, disease process management & education, medication management Caregivers available: Caregiver/Spouse/Family/POA available 13/03 for all needs. BACKGROUND Pertinent Medical History/Hospitalizations: dialysis & CAD hx Prior Level of Functioning: Independent Current Living Conditions/Safety Hazards: No issues found ASSESSMENT Abnormal assessment findings: None found Medication Issues: No issues found at time of Medication reconciliation, weekly medication supply planner filled by SN at visit with patient Re-hospitalization risk: high Barriers to care/social determinants: None RECOMMENDATIONS POC confirmed with Dr.: Lorne Mcnulty MD Plan for my discipline: SN for CAD post-op follow, wound care, disease process management & education, medication management Other disciplines ordered/recommended: Usp and Physical Therapy Supply/HME/equipment needs or issues: None needed Follow ups needed: Scheduled out & cardiac rehab x4 weeks post-op * Quality Review - Marianela Webber - 11/05/2023 9:17 AM CDT [id number] - Types and Sources of Assistance - Supervision and safety 1- Non- agency caregiver(s) currently provide assistance 0- No assistance needed OASIS item is related to need/ level of assistance due to cognitive impairments. SN OASIS - Patient noted to be alert. Oriented x 4, has appropriate concentration, normal judgment and no memory loss. According to OASISI guidance, if patient does not have cognitive impairments, then [id number] would not apply. M1800 - Grooming 1- some help 2- needs assist Changed from 1 to 2. SN OASIS - noted needs CGA to groom. According to OASIS guidance, if patient requires standby assist OR verbal cues to groom self, due to physical/cognitive/environmental barriers to complete activities safely, then Code 2. M1810 - Dress Upper Body 1- some help 2- needs assist Changed from 1 to 2. SN OASIS - noted needs CGA to dress upper body. According to OASIS guidance, if patient requires standby assistance (a ??student truck driver??) to dress safely or requires verbal cueing/reminders due to physical/cognitive/environmental barriers to complete task safely, then Code 2. M1820 - Dress Lower Body 1- some help 2- needs assist Changed from 1 to 2. SN OASIS - noted needs minimum assist to dress lower body. According to OASIS guidance, if patient requires standby assistance (a ??student truck driver??) to dress safely or requires verbal cueing/reminders due to physical/cognitive/environmental barriers to complete task safely, then Code 2. M1850 - Transferring 1- able w/ min assist 2- unable to transfer self Changed from 1 to 2. SN OASIS - noted needs minimum assist to transfer, uses walker. According to OASIS guidance, if patient needs an assisted device AND minimal human assistance due to physical/cognitive impairments to transfer safely, then Code 2. M1028 - Active Diagnoses 2- Diabetes Changed from blank to 2. Patient has an active diagnosis of DM including diagnoses classified between E08-E13. documented in this encounter Plan of Treatment Not on file documented as of this encounter Visit Diagnoses Not on filedocumented in this encounter Home Health Visit - Care Plan Visit Details Visit Type -SN OASIS Start o f Care Discipline -Usp Problems Problem Description Start Date Status Goals Interve ntions Homebound Status Disciplines: Skilled Disciplines Patient's homebound status 11/05/2023 Active 1 goal linked to scheduled/documen marcelo intervention 1 goal intervention scheduled/documen marcelo in this visit Medications Disciplines: Usp Management of home medications 11/05/2023 Active 1 goal linked to scheduled/documen marcelo intervention 2 goal interventions scheduled/documen marcelo in this visit Monitor patient's vital signs every home health visit Disciplines: SN, PT, OT, CLIENT DEVELOPMENT DIRECTOR, AREA CLEANER, Skilled Disciplines Monitor patient's vital signs every home health visit. 11/05/2023 Active 1 goal linked to scheduled/documen marcelo intervention 1 goal intervention scheduled/documen marcelo in this visit Labs Disciplines: Usp Management of specimen samples, including lab draws, [...] visit during episode of care Description: Home health clinician to measure vital signs during [...] care at the most appropriate care setting Scheduled Instruct on Medication Management Description: Assess patient/caregiver ability to demonstrate management of medications, steps to obtain new/refills of medications and identification of new or changed medications. Assess patient/caregiver ability to verbalize accurate dose/route/frequency/reason for medication, how to evaluate effectiveness of [...] home health visit during episode of care Scheduled Draw Labs Description: Draw labs per aseptic [...] Scheduled documented in this encounter Care Teams Associate Professor Of Library Media Relationship Specialty Start Date End Date Aditya Castro MD [address] [facility] [place] [address] PCP - General 10/17/19 documented as of this encounter
--- OUTSIDE RECORDS SUMMARY | 2024-08-18 13:05 | XMS_ITS | Encounter Summary ---
Author Organization [facility] Healthcare Address [address] [place] [address] Care Team Providers Care Hides Soaker Name Role Phone Aditya Castro MD Primary Care Provider [phone] Encounter Details Date Type Department Care Team (Late st Contact Info) Description 11/04/2023 Telephone [facility] Home Care Services [address] [place] [address] Lissette Slade Social History Tobacco Use Types Packs/Day Years [...] materials from doctor or pharmacy Never 11/05/2023 [facility] Utilities Answer Date Recorded In the past 12 months has [facility] [employer], gas, oil, or water company threatened to [...] often do you attend chur ch or bahai services? 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 Interviewed patient via phone post hospitalization. [facility] Confirmed homebound status. Informed patient that staff will be calling within 48 hours regarding an appointment. documented in this encounter Plan of Treatment Not on file documented as of this encounter Visit Diagnoses Not on filedocumented in this encounter Care Teams Hides Soaker Relationship Specialty Start Date End Date Aditya Castro MD [address] [facility] [place] [address] PCP - General 10/17/19 documented as of this encounter
--- OUTSIDE RECORDS SUMMARY | 2024-08-18 13:05 | XMS_ITS | Encounter Summary ---
Author Organization [facility] Healthcare Address [address] [place] [address] Care Team Providers Care Senior Data Warehouse Developer Name Role Phone Aditya Castro MD Primary Care Provider [phone] Reason for Visit * Reason Comments Post-op Open Heart Surgery 10/17/23 AVR ( 27 mm On-X mechanical), CABGx3, Sternal Plating Encounter Details Date Type Department Care Team (Late st Contact Info) Description 11/22/2023 9:30 AM CDT Office Visit Cardiovascular and Thoracic Surgery [address] [place] [address] Lorne Mcnulty MD [address] [place] [address] 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 No 10/16/2023 Personal Safety Answer Date Recorded Have you ever been in or are you currently in a harmful physical or emotional relationship or is someone making you feel afraid or unsafe? 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 OFFICER Gender Identity Not on file Sexual Orientation Not on file documented as of this encounter Last Filed Vital Signs Vital Sign Reading Time Taken Comments Blood Pressure 160/60 11/22/2023 9:40 AM CDT Pulse 72 11/22/2023 9:40 AM CDT regul ar Temperature - - Respiratory Rate 16 11/22/2023 9:40 AM CDT Oxygen Saturation - - Inhaled Oxygen Concentration - - Weight 115.7 kg (255 lb) 11/22/2023 9:40 AM CDT Height 177.8 cm (5' 10 ) 11/22/2023 9:40 AM CDT Body Mass Index 36.59 11/22/2023 9:40 AM CDT documented in this encounter Patient Instructions * Patient Instructions* Margoth Grewal RN - 11/22/2023 9:30 AM CDT Sternal Plating: No further restrictions on lifting but recommend gradually increasing your liftingas tolerated OK to drive STOP AMIODARONE Recommend Cardiac Rehab, Dr. Teran will order and follow you Follow up with your Finance Assistant, Dr. Teran within next month. Dr. Ramaden or your Primary care doctor needs to take over your Coumadin (warfarin) regulation and bloodwork Possible CoaguCheck machine for home blood test, ASK the doctor who will take over your anticoagulation if he/she will order this INR GOAL FOR ON-X MECHANICAL AORTIC VALVE REPLACEMENT: 2.0-2.5 UNTIL JANUARY 14 THEN CAN DECREASE INR GOAL TO 1.5-2.0 RETIREMENT Antibiotic Prophylaxis before dental visits for prevention of valve endocarditis Antibiotic Prophylaxis Taking an antibiotic before or immediately after a surgical procedure in order to prevent an infection is called antibiotic prophylaxis. It may be recommended by a primary doctor, a restaurant crew member, or an orthopedist for patients who are at particular risk for dangerous infections, such as an infection of a heart valve or prosthetic joint. Conditions for which antibiotic prophylaxis is often recommended are: Prosthetic heart valve History of a heart valve infection Certain types of congenital heart disease Prosthetic joint Even in patients for whom antibiotic prophylaxis has been recommended, not all surgical procedures require antibiotic prophylaxis. It is often recommended for procedures of the mouth, respiratory tract, or GI tract. However, most skin procedures do not require any antibiotic prophylaxis. Whenever uncertain, patients should consult the doctor who made the recommendation for antibiotic prophylaxis. The antibiotic is typically given as a single dose 30-60 minutes before the procedure. The choice of antibiotic depends on the medical condition, the surgical procedure, and the presence of any allergies. Common antibiotics and dosing are: Amoxicillin: 2 g for adults and 50 mg/kg for children Cephalexin: 2 g for adults and 50 mg/kg for children Clindamycin: 600 mg for adults and 20 mg/kg for children Azithromycin or clarithromycin: 500 mg for adults and 15 mg/kg for children * Attachments The following attachments cannot be sent through Care Everywhere. * Cardiac Rehabilitation (General Information) (German) documented in this encounter Progress Notes * Lorne Mcnulty MD - 11/22/2023 9:30 AM CDT Subjective/Objective Patient ID: Juvenalfabi Daigle Jr. is a 53 y.o. male. Chief Complaint Post-op Open Heart Surgery (10/17/23 AVR (27 mm On-X mechanical), CABGx3, Sternal Plating) BP 160/60 Pulse 72 Comment: regular Resp 16 Ht 177.8 cm (5' 10 ) Wt 115.7 kg (255 lb) BMI36.59 kg/m?? HPI: The patient returns to the office today approximately 1 month following multivessel coronary arterybypass grafting and mechanical aortic valve replacement. He is doing very well in his recovery, at this point. He denies worsening chest pain, palpitations, shortness of breath, or lower extremity carissa ma. The postoperative cellulitis of both lower extremities he was experiencing appears to have resolved and he is ambulating reasonably well without difficulty. PHYSICAL EXAM: Lungs: Clear Cardiac: Regular with a brisk click Incision: Sternum intact and well healed, Legs intact and well healed, and Stable with coughing Lower extremity edema: Right: none Left: none READMISSION: No Current Outpatient Medications: acetaminophen 500 mg capsule, Take 1 capsule (500 mg total) by mouth every 6 (six) hours as needed for pain, Disp: , Rfl: aspirin 81 mg enteric coated tablet, Take 1 tablet (81 mg total) by mouth daily, Disp: , Rfl: atorvastatin (LIPITOR) 80 mg tablet, Take 1 tablet (80 mg total) by mouth daily, Disp: , Rfl: calcitRIOL (ROCALTROL) 0.25 mcg [...] week Monday, Monday, Monday, Disp: , Rfl: EZETIMIBE ORAL, Take 10 mg by mouth daily, Disp: , Rfl: famotidine (PEPCID) 40 mg tablet, Take 0.5 tablets (20 mg total) by mouth nightly, Disp: , Rfl: gemfibroziL (LOPID) 600 mg tablet, Take 1 tablet (600 mg total) by mouth 2 (two) times a day beforebreakfast and lunch, Disp: , Rfl: HYDROcodone-acetaminophen (NORCO) 5-325 mg per tablet, Take 1 tablet by mouth every 4 (four) hours as needed for pain, Disp: 30 tablet, Rfl: 0 icosapent ethyL (VASCEPA) 1 gram capsule, Take 2 capsules (2 g total) by mouth 2 (two) times a day,Disp: , Rfl: insulin lispro (HumaLOG, ADMELOG) 100 unit/mL vial for injection, THIS IS FOR THE INSULIN PUMP: Continue Omnipod 5 insulin pump with [employer] G6 CGM at home settings: TIME BASAL RATE TOTAL BASAL DAILY DOSE: 65.85 0330 1.7 units/hour 0800 0.8 units/hour 2000 5.8 units/hour, Disp: , Rfl: levothyroxine (SYNTHROID) 25 mcg tablet, Take 1 tablet (25 mcg total) by mouth keno writer beforebreakfast, Disp: 30 tablet, Rfl: 1 metoprolol tartrate (LOPRESSOR) 25 mg immediate release tablet, Take 0.5 tablets (12.5 mg total) bymouth 2 (two) times a day, Disp: 30 tablet, Rfl: 1 omeprazole (PriLOSEC) 20 mg capsule, Take 1 capsule (20 mg total) by mouth daily, Disp: , Rfl: pen needle, diabetic (BD Ultra-Fine Short Pen Needle) 31 gauge x 5/16 needle, , Disp: , Rfl: torsemide (DEMADEX) 100 mg tablet, Take 1 tablet (100 mg total) by mouth daily, Disp: 30 tablet, Rfl: 1 warfarin (COUMADIN) 2 mg tablet, Take 4 mg (2 tabs) daily with dinner, or as directed (Patient taking differently: Take 1.5 tablets (3 mg total) by mouth daily Take 4 mg (2 tabs) daily with dinner, or as directed), Disp: 60 tablet, Rfl: 1 Assessment/Plan Diagnoses and all orders for this visit: 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 We discontinued the amiodarone for the patient's postoperative atrial fibrillation, as he appears ghada back in normal sinus rhythm. No other changes were made to his medical regimen at this time. We r eviewed the activity restrictions of no lifting more than 10 pounds for one more month. Otherwise, the patient can return to driving and should increase his activity as tolerated. He has an excellentcandidate for cardiac rehab, as well. He will be following up with Dr. Ortega on a regular basis. All of his and his brother's questions were answered to their apparent satisfaction and he can return to our office on an as-needed basis only. 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 (CMS/HCC) (HCC)- Primary NSTEMI (non-ST elevated myocardial infarction) (CMS/HCC) (HCC) Acute myocardial infarction, subendocardial infarction, episode of care unspecified Nonrheumatic aortic valve stenosis Status post aortic valve replacement Heart valve replaced by other means Status post coronary artery bypass grafting documented in this encounter Discontinued Medications Medication Sig Discontinue Reason Start Date End Da te amiodarone (PACERONE) 200 mg tabletIndications:Cardiov ersion of Atrial Fibrillation Take 1 tablet (200 mg total) by mouth daily Therapy completed 11/04/2023 11/22/2023 documented as of this encounter Care Teams Senior Data Warehouse Developer Relationship Specialty Start Date End Date Aditya Castro MD [address] [facility] [place] [address] PCP - General 10/17/19 documented as of this encounter
--- OUTSIDE RECORDS SUMMARY | 2024-08-18 13:05 | XMS_ITS | Encounter Summary ---
Author Organization [facility] Healthcare Address [address] [place] [address] Care Team Providers Care Line Fisher Name Role Phone Aditya Castro MD Primary Care Provider [phone] Reason for Visit * Auth/Cert (Routine) Specialty Diagnoses / Procedures Referred By Aguilar t Referred To Contact Referral ID Status Reason Start Date Expiration Date Visits Re quested Visits Authorized [id number] 1 1 Encounter Details Date Type Department Care Team (Late st Contact Info) Description 11/20/2023 12:00 PM CDT Home Care Visit [address] [place] [address] Miriam Syed RN SN HOME VISIT Social [...] Never 11/05/2023 [facility] Utilities Answer Date Recorded In the past 12 months has th e [employer], gas, oil, or water company threatened to [...] often do you attend chur ch or yarsanism services? 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 Gender Identity Not on file Sexual Orientation Not on file documented as of this encounter Last Filed Vital Signs Vital Sign Reading Time Taken Comments Blood Pressure 124/62 11/20/2023 1:10 PM CDT Pulse 73 11/20/2023 1:10 PM CDT Temperature 36.4 ??C (97.6 ??F) 11/20/2023 1:10 PM CD T Respiratory Rate 16 11/20/2023 1:10 PM CDT Oxygen Saturation 97% 11/20/2023 1:10 PM CDT Inhaled Oxygen Concentration - - Weight - - Height - - Body Mass Index - - documented in this encounter Miscellaneous Notes * Home Health Plan for Next Visit - Miriam Syed RN - 11/20/2023 1:19 PM CDT Reason for today's visit wound care & 2.1 INR result w/NO's awaiting response from Lorne Mcnulty MD, NO's RN Margoth reports 3mg evenings until recheck. Discuss plan of care ongoing with wound care Discharge planning initiated and ongoing Plan for next visit wound care documented in this encounter Plan of Treatment Not on file documented as of this encounter Procedures Procedure Name Priority Date/Time Associated Diagnosis Comments POCT PROTHROMBIN TIME/INR Routine 11/20/2023 1:19 PM CDT documented in this encounter Results * POCT PT/INR (11/20/2023 1:19 PM CDT) INR, POC 2.10 [facility] Comment:Called in results Blood 11/20/2023 1:19 PM CDT us Lorne Mcnulty MD POINT OF CARE TEST ORDERAB LES Final Result [facility] documented in this encounter Visit Diagnoses Not on filedocumented in this encounter Home Health Visit - Care Plan Visit Details Visit Type -SN Home Visit Discipline -Mcc Problems Problem Description Start Date Status Goals Interve ntions Homebound Status Disciplines: Skilled Disciplines Patient's homebound status 11/05/2023 Active 1 goal linked to scheduled/documen marcelo intervention 1 goal intervention scheduled/documen marcelo in this visit Medications Disciplines: Mcc Management of home medications 11/05/2023 Active 1 goal linked to scheduled/documen marcelo intervention 2 goal interventions scheduled/documen marcelo in this visit Monitor patient's vital signs every home health visit Disciplines: SN, PT, OT, BUTTON SEWING MACHINE OPERATOR, INFORMATION CLERK BROKERAGE, Skilled Disciplines Monitor patient's vital signs every home health visit. 11/05/2023 Active 1 goal linked to scheduled/documen marcelo intervention 1 goal intervention scheduled/documen marcelo in this visit Labs Disciplines: Mcc Management of specimen samples, including lab draws, [...] visit during episode of care Description: Home chemical recovery operator to measure vital signs during every home [...] Scheduled documented in this encounter Care Teams Line Fisher Relationship Specialty Start Date End Date Aditya Castro MD [address] [facility] [place] [address] PCP - General 10/17/19 documented as of this encounter
--- OUTSIDE RECORDS SUMMARY | 2024-08-18 13:05 | XMS_ITS | Encounter Summary ---
Author Organization [facility] Healthcare Address [address] [place] [address] Care Team Providers Care Buckle Inspector Name Role Phone Aditya Castro MD Primary Care Provider [phone] Reason for Visit * Reason Onset Date Comments Anticoagulation 11/09/2023 Encounter Details Date Type Department Care Team (Late st Contact Info) Description 11/09/2023 Telephone Cardiovascular and Thoracic Surgery [address] [facility] [address] [place] [address] Magroth Grewal RN [address] [facility] [address], [place] [address] Anticoagulation Social History Tobacco Use [...] materials from doctor or pharmacy Never 11/05/2023 [facility] Utilities Answer Date Recorded In the past 12 months has e [email or web address], [employer], or [employer] threatened to shut off services in your [...] often do you attend chur ch or adventism services? 1 to 4 times per year 10/16/2023 Do you belong to any clubs o r organizations such as sabianism groups, unions, fraternal or athletic groups, or [...] in a mcfp (including now)? No 10/16/2023 Personal Safety Answer Date Recorded Have you ever been in or are you currently in a harmful physical or emotional relationship or is someone making you feel afraid or unsafe? 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 Mcnulty patient Contact: LUAN Pineda called to report an INR of 5.6 and he missed a dose of Coumadin the other night, but he has been taking 4 mg nightly. INR 5.6 on coumadin 4 mg daily (2 mg tabs) for ON-X mechanical AVR. Will hold dose tonight and tomorrow then on 11/11/23 begin Coumadin 2 mg daily. Recheck INR 11/13/23.Miriam will instruct pt. documented in this encounter Plan of Treatment Not on file documented as of this encounter Visit Diagnoses Not on filedocumented in this encounter Care Teams Buckle Inspector Relationship Specialty Start Date End Date Aditya Castro MD [address] [facility] [place] [address] PCP - General 10/17/19 documented as of this encounter
--- OUTSIDE RECORDS SUMMARY | 2024-08-18 13:05 | XMS_ITS | Encounter Summary ---
Author Organization [facility] Healthcare Address [address] [place] [address] Care Team Providers Care Process Safety Specialist Name Role Phone Aditya Castro MD Primary Care Provider [phone] Encounter Details Date Type Department Care Team (Late st Contact Info) Description 11/16/2023 Telephone [facility] Case Management [address] [place] [address] Jose Manuel Moore BS Social History Tobacco Use Types Packs/Day Years [...] doctor or pharmacy Never 12/01/2023 [facility] Utilities Answer Date Recorded In the [...] often do you attend chur ch or amish services? 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 Patient denies any questions regarding medications at this time. Cardiac Rehab Facility: Was contacted by [place] Manager [facility] Follow-up Appointment: Patient had a follow up appointment with Dr. Mcnulty on November 21. Readmission: Patient has not been readmitted to a hospital over the past 30 days. * Telephone Encounter - Jose Manuel Moore EP-C - 11/16/2023 3:03 PM CDT Initial Follow-up Call Questions Medications: Patient reports taking all medication as prescribed. Patient denies any current questions about medications. Cardiac Rehab Facility: Asked patient if [facility] cardiac rehab has contacted them yet. Patient states that they have contacted him and plan to schedule him in a few weeks. Manager [employer] Follow-up Appointment: Patient reports they see Dr. Mcnulty on 11/22/23 Readmission: Patient reports they have not been readmitted to a hospital since being discharged from [facility]. Will plan to make 30-60-day f/u call with patient. * Telephone Encounter - Jose Manuel Moore EP-C - 11/16/2023 10:33 AM CDT Called pt to ask Cardiac Rehab Navigator follow up questions. No answer. LMOR (left message on recorder) x 1 with name, department and office phone number. Will plan to call again at a later date if pt does not return call. documented in this encounter Plan of Treatment Not on file documented as of this encounter Visit Diagnoses Not on filedocumented in this encounter Care Teams Process Safety Specialist Relationship Specialty Start Date End Date Aditya Castro MD [address] [facility] [place] [address] PCP - General 10/17/19 documented as of this encounter
--- OUTSIDE RECORDS SUMMARY | 2024-08-18 13:05 | XMS_ITS | Encounter Summary ---
Author Organization [facility] Healthcare Address [address] [place] [address] Care Team Providers Care Route Driver Name Role Phone Aditya Castro MD Primary Care Provider [phone] Reason for Visit * Reason Onset Date Comments Anticoagulation 11/16/2023 Encounter Details Date Type Department Care Team (Late st Contact Info) Description 11/16/2023 Telephone Cardiovascular and Thoracic Surgery [address] [facility] [address] [place] [address] Margoth Grewal RN [address] [facility] [address], [place] [address] Anticoagulation Social History Tobacco Use [...] materials from doctor or pharmacy Never 11/05/2023 [facility] Utilities Answer Date Recorded In the past 12 months has e [employer], [employer], or [employer] threatened to shut off services in your [...] often do you attend chur ch or muslim services? 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 Mcnulty PT - INr results Contact: Miriam pt at home nurse calling with pt inr. 1.8 inr result. Miriam is the call back number INR 1.8 Will increase Coumadin 3 mg daily and recheck INR 11/20/23. Miriam will instruct pt. documented in this encounter Plan of Treatment Not on file documented as of this encounter Visit Diagnoses Not on filedocumented in this encounter Care Teams Route Driver Relationship Specialty Start Date End Date Aditya Castro MD [facility] [place] [address] PCP - General 10/17/19 documented as of this encounter
--- OUTSIDE RECORDS SUMMARY | 2024-08-18 13:05 | XMS_ITS | Encounter Summary ---
Author Organization [facility] Healthcare Address [address] [place] [address] Care Team Providers Care Alterations Expert Name Role Phone Aditya Castro MD Primary Care Provider [phone] Reason for Visit * Auth/Cert (Routine) Specialty Diagnoses / Procedures Referred By Aguilar t Referred To Contact Referral ID Status Reason Start Date Expiration Date Visits Re quested Visits Authorized [id number] 1 1 Encounter Details Date Type Department Care Team (Late st Contact Info) Description 11/27/2023 10:30 AM CDT Home Care Visit [facility] [address] [address] [address] [place] [address] Miriam Syed RN SN HOME VISIT Social [...] doctor or pharmacy Never 11/05/2023 [facility] Utilities Answer Date Recorded In the past 12 months has th e [employer], gas, oil, or water company threatened to [...] often do you attend chur ch or church services? 1 to 4 times per year 10/16/2023 Do you belong to any clubs o r organizations such as druze groups, unions, fraternal or athletic groups, or [...] a senior care (including now)? No 10/16/2023 Personal Safety Answer Date Recorded Have you ever been in or are you currently in a harmful physical or emotional relationship or is someone making you feel afraid or unsafe? 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 Gender Identity Not on file Sexual Orientation Not on file documented as of this encounter Last Filed Vital Signs Vital Sign Reading Time Taken Comments Blood Pressure 138/70 11/27/2023 12:04 PM CDT Pulse 80 11/27/2023 12:04 PM CDT Temperature 36.3 ??C (97.4 ??F) 11/27/2023 12:04 PM C DT Respiratory Rate 16 11/27/2023 12:04 PM CDT Oxygen Saturation 99% 11/27/2023 12:04 PM CDT Inhaled Oxygen Concentration - - Weight - - Height - - Body Mass Index - - documented in this encounter Miscellaneous Notes * Home Health Plan for Next Visit - Miriam Syed RN - 11/27/2023 12:22 PM CDT Reason for today's visit wound care, INR result 3.5 today with NO's MW 1.5 mg T 3 mg and recheck onThursday. Discuss plan of care ongoing with wound care Discharge planning initiated and ongoing Plan for next visit wound care documented in this encounter Plan of Treatment Not on file documented as of this encounter Procedures Procedure Name Priority Date/Time Associated Diagnosis Comments POCT PROTHROMBIN TIME/INR Routine 11/27/2023 12:11 PM CDT documented in this encounter Results * POCT PT/INR (11/27/2023 12:11 PM CDT) INR, POC 3.50 HH [facility] Comment:called Dr Shannon lima INR nurse Blood 11/27/2023 12:1 1 PM CDT us Lorne Mcnulty MD POINT OF CARE TEST ORDERAB LES Final Result POCT RESULTING LABORATORY documented in this encounter Visit Diagnoses Not on filedocumented in this encounter Home Health Visit - Care Plan Visit Details Visit Type -SN Home Visit Discipline -Detention Problems Problem Description Start Date Status Goals Interve ntions Homebound Status Disciplines: Skilled Disciplines Patient's homebound status 11/05/2023 Active 1 goal linked to scheduled/documen marcelo intervention 1 goal intervention scheduled/documen marcelo in this visit Medications Disciplines: Detention Management of home medications 11/05/2023 Active 1 goal linked to scheduled/documen marcelo intervention 2 goal interventions scheduled/documen marcelo in this visit Monitor patient's vital signs every home health visit Disciplines: SN, PT, OT, ROOM SERVICE ASSOCIATE, HEAD TRANSFER CLERK, Skilled Disciplines Monitor patient's vital signs every home health visit. 11/05/2023 Active 1 goal linked to scheduled/documen marcelo intervention 1 goal intervention scheduled/documen marcelo in this visit Labs Disciplines: Detention Management of specimen samples, including lab draws, [...] visit during episode of care Description: Home lifter to measure vital signs during every home [...] Scheduled documented in this encounter Care Teams Alterations Expert Relationship Specialty Start Date End Date Aditya Castro MD [address] [facility] [place] [address] PCP - General 10/17/19 documented as of this encounter
--- OUTSIDE RECORDS SUMMARY | 2024-08-18 13:05 | XMS_ITS | Encounter Summary ---
Author Organization [facility] Healthcare Address [address] [place] [address] Care Team Providers Care Continuous Improvement Intern Name Role Phone Aditya Castro MD Primary Care Provider [phone] Reason for Visit * Reason Onset Date Comments Anticoagulation 11/13/2023 Encounter Details Date Type Department Care Team (Late st Contact Info) Description 11/13/2023 Telephone Cardiovascular and Thoracic Surgery [address] [facility] [address] [place] [address] Margoth Grewal RN [address] [facility] [address] [place] [address] Anticoagulation Social History Tobacco Use [...] materials from doctor or pharmacy Never 11/05/2023 [facility] Utilities Answer Date Recorded In the past 12 months has e [employer], or [employer] threatened to shut off services in your [...] often do you attend chur ch or adventist services? 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 Mcnulty Contact: Miriam with [facility] Home Care calling to report INR 2.1. New dosing instructions INR 2.1 Continue Coumadin 2 mg daily for ON-X mechanical AVR. Recheck INR 11/16/23. Miriam will instruct pt. documented in this encounter Plan of Treatment Not on file documented as of this encounter Visit Diagnoses Not on filedocumented in this encounter Care Teams Continuous Improvement Intern Relationship Specialty Start Date End Date Aditya Castro MD [address] [place] [address] [place] [address] PCP - General 10/17/19 documented as of this encounter
--- OUTSIDE RECORDS SUMMARY | 2024-08-18 13:05 | XMS_ITS | Encounter Summary ---
Author Organization [facility] Healthcare Address [address] [place] [address] Care Team Providers Care Country Singer Name Role Phone Aditya Castro MD Primary Care Provider [phone] Reason for Visit * Auth/Cert (Routine) Specialty Diagnoses / Procedures Referred By Aguilar t Referred To Contact Referral ID Status Reason Start Date Expiration Date Visits Re quested Visits Authorized [id number] 1 1 Encounter Details Date Type Department Care Team (Late st Contact Info) Description 11/23/2023 12:00 PM CDT Home Care Visit [address] [address] [address] [place] [address] Miriam Syed RN SN HOME VISIT Social [...] Never 11/05/2023 [facility] Utilities Answer Date Recorded In the past 12 months has th e [employer], gas, oil, or water company threatened to [...] often do you attend chur ch or advent services? 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 Gender Identity Not on file Sexual Orientation Not on file documented as of this encounter Last Filed Vital Signs Vital Sign Reading Time Taken Comments Blood Pressure 122/62 11/23/2023 11:49 AM CDT Pulse 76 11/23/2023 11:49 AM CDT Temperature 36.4 ??C (97.5 ??F) 11/23/2023 11:49 AM C DT Respiratory Rate 16 11/23/2023 11:49 AM CDT Oxygen Saturation 96% 11/23/2023 11:49 AM CDT Inhaled Oxygen Concentration - - Weight - - Height - - Body Mass Index - - documented in this encounter Miscellaneous Notes * Home Health Plan for Next Visit - Miriam Syed RN - 11/23/2023 12:01 PM CDT Reason for today's visit wound care PENNIE, INR 2.7, 3 mg each evening dosing per Dr Covington INR nurse recheck 11/26 Discuss plan of care ongoing with wound care Discharge planning initiated and ongoing Plan for next visit wound care documented in this encounter Plan of Treatment Not on file documented as of this encounter Procedures Procedure Name Priority Date/Time Associated Diagnosis Comments POCT PROTHROMBIN TIME/INR Routine 11/23/2023 12:01 PM CDT documented in this encounter Results * POCT PT/INR (11/23/2023 12:01 PM CDT) INR, POC 2.70 HH POCT RESULTING LABORATORY Comment:3mg each evening rec heck 11/27/23 Blood 11/23/2023 12:0 1 PM CDT us Lorne Mcnulty MD [...] home health visit Disciplines: SN, PT, OT, PAPER PRODUCTS PRINTER, CONTENT ARCHITECT, Skilled Disciplines Monitor patient's vital signs every [...] visit during episode of care Description: Home behavior clinician to measure vital signs during every [...] Scheduled documented in this encounter Care Teams Country Singer Relationship Specialty Start Date End Date Aditya Castro MD [address] [facility] [place] [address] PCP - General 10/17/19 documented as of this encounter
--- OUTSIDE RECORDS SUMMARY | 2024-08-18 13:05 | XMS_ITS | Encounter Summary ---
Author Organization [facility] Healthcare Address [address] [place] [address] Care Team Providers Care Equipment Planner Name Role Phone Aditya Castro MD Primary Care Provider [phone] Reason for Visit * Auth/Cert (Routine) Specialty Diagnoses / Procedures Referred By Aguilar t Referred To Contact Referral ID Status Reason Start Date Expiration Date Visits Re quested Visits Authorized [id number] 1 1 Encounter Details Date Type Department Care Team (Late st Contact Info) Description 11/13/2023 12:45 PM CDT Home Care Visit [address] [address] [address] [place] [address] Miriam Syed RN SN HOME VISIT Social [...] from doctor or pharmacy Never 11/05/2023 [facility] Utilities Answer Date Recorded In the past 12 months has th e [employer], gas, oil, or water company threatened to [...] often do you attend chur ch or cheondoism services? 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 Gender Identity Not on file Sexual Orientation Not on file documented as of this encounter Last Filed Vital Signs Vital Sign Reading Time Taken Comments Blood Pressure 110/60 11/13/2023 1:12 PM CDT Pulse 102 11/13/2023 1:12 PM CDT Temperature 36.4 ??C (97.5 ??F) 11/13/2023 1:12 PM CD T Respiratory Rate 16 11/13/2023 1:12 PM CDT Oxygen Saturation 97% 11/13/2023 1:12 PM CDT Inhaled Oxygen Concentration - - Weight - - Height - - Body Mass Index - - documented in this encounter Miscellaneous Notes * Home Health Plan for Next Visit - Miriam Syed RN - 11/13/2023 1:18 PM CDT Reason for today's visit wound care & INR lab, Called PCP for new orders awaiting next INR order Discuss plan of care ongoing with wound care Discharge planning initiated and ongoing Plan for next visit wound care documented in this encounter Plan of Treatment Not on file documented as of this encounter Procedures Procedure Name Priority Date/Time Associated Diagnosis Comments POCT PROTHROMBIN TIME/INR Routine 11/13/2023 1:18 PM CDT documented in this encounter Results * POCT PT/INR (11/13/2023 1:18 PM CDT) INR, POC 2.10 HH POCT RESULTING LAB[facility]ATORY Comment:Called PCP for new o rders awaiting next INR order Blood 11/13/2023 1:18 PM CDT us Lorne Mcnulty MD POINT OF CARE TEST ORDERAB LES Final Result HH POCT RESULTING LAB[facility]AT[facility] documented in this encounter Visit Diagnoses Not on filedocumented in this encounter Home Health Visit - Care Plan Visit Details Visit Type -SN Home Visit Discipline -Usp Problems Problem Description Start Date [...] home health visit Disciplines: SN, PT, OT, REGULATORY COMPLIANCE SPECIALIST, SYSTEMS ENGINEER, Skilled Disciplines Monitor patient's vital signs every [...] visit during episode of care Description: Home access clinician to measure vital signs during every [...] Scheduled documented in this encounter Care Teams Equipment Planner Relationship Specialty Start Date End Date Aditya Castro MD [address] [facility] [place] [address] PCP - General 10/17/19 documented as of this encounter
--- OUTSIDE RECORDS SUMMARY | 2024-08-18 13:07 | XMS_ITS | Encounter Summary ---
Author Organization 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 Medical Group Cardiology [address] [place] [address] Mesha Castro MD [address] [place] [id number] Social History Tobacco Use Types Packs/Day Years Used Date Smoking Tobacco: Never Smokeless Tobacco: Former Alcohol Use Standard Drinks/Week Comments No 0 (1 standard drink = 0.6 oz pur e alcohol) [facility] Utilities Answer Date Recorded In the past 12 months has [employer], gas, oil, or water [employer] threatened to shut off services in your [...] week 10/16/2023 How often do you attend [facility] or evangelical services? 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 COMPANION Gender Identity Not on file Sexual Orientation Not on file documented as of this encounter Plan of Treatment Not on file documented as of this encounter Procedures Procedure Name Priority Date/Time Associated Diagnosis Comments CARDIOLOGY DOCUMENT SCAN Routine 10/13/2023 2:17 PM NURSE COMPANION CARDIOLOGY DOCUMENT SCAN Routine 10/12/2023 2:15 PM NURSE COMPANION CARDIOLOGY DOCUMENT SCAN Routine 10/11/2023 2:09 PM NURSE COMPANION documented in this encounter Results * Cardiology Document Scan (10/13/2023 2:17 PM NURSE COMPANION) Anatomical Region Laterality Modality Other us Abelardo Petit MD [facility] CARDIAC SERVICES PROC EDURES Final Result * Cardiology Document Scan (10/12/2023 2:15 PM NURSE COMPANION) Anatomical Region Laterality Modality Other us Ripa Lianne Castro MD [facility] CARDIAC SERVICES PRO CEDURES Final Result * Cardiology Document Scan (10/11/2023 2:09 PM NURSE COMPANION) Anatomical Region Laterality Modality Other us Ripa Lianne Castro MD [facility] CARDIAC SERVICES PRO CEDURES Final Result documented in this encounter Visit Diagnoses Not on filedocumented in this encounter Care Teams Vinyl Flooring Installer Relationship Specialty Start Date End Date Aditya Castro MD [address] [facility] DEPT [place] [address] PCP - General 10/17/19 documented as of this encounter
--- OUTSIDE RECORDS SUMMARY | 2024-08-18 13:07 | XMS_ITS | Encounter Summary ---
Author Organization [facility] Healthcare Address [address] [place] [address] Care Team Providers Care Motor Vehicle Technician Name Role Phone Aditya Correa MD Primary Care Provider [phone] Reason for Referral * Consultation (Routine) - Pending Review Specialty Diagnoses / Procedures Referred By Aguilar t Referred To Contact Cardiac Rehabilitation Diagnoses S/P CABG x 3 NSTEMI (non-ST elevated myocardial infarction) (CMS/HCC) (HCC) S/P AVR Jaqueline Valero MD Phone: tel: fax: [place] [address] [place] [id number] Phone: tel: Referral ID Status Reason Start Date Expiration Date Visits Requested Visits Authorized [id number] Pending Review Specialty Services Required 10/24/2023 11/22/2024 1 1 Question Answer Please select the performing region: External Order [171] To loc/pos [facility] Inpatient POS [[id number]] Select a phase: Phase 2 # of visits: [address] Valero is patient's Cardiothoracic Surgeon and will not be managing patient during Cardiac Rehab. Please contact patient's established General Surgeon, Dr. Hamlet Ortega, for additional information. DING ADMIN * Home Health (Routine) - Pending Review Specialty Diagnoses / Procedures Referred By Aguilar t Referred To Contact Home Health Services / Home Health and Hospice Diagnoses CAD in [place] artery 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[place] artery of [place] heart with stable angina pectoris (HCC) Aortic stenosis, severe Jaqueline Valero MD Phone: tel: fax: [facility] Home Care Services [address] [address] Referral ID Status Reason Start Date Expiration Date Visits Requested Visits Authorized [id number] Pending Review Specialty Services Required 10/20/2023 11/18/2024 1 1 Question Answer [facility] Primary disciplines requested: Senior Living Home Health Services Disease and Medication Management, Labs, Wound/Ostomy Care, Other Comment: cardiovascular assessment, remove sutures and dermabond tape over incisions 10-14 days post op, seriel INR twice weekly for 4-6 weeks Does the patient have a wound vac? No Wound Information: remove sutures and dermabond tape over incisions 10-14 days post op (TAPE WILL NOT FALL OFF ON OWN) Labs: INR INR frequency: INR twice weekly for 4-6 weeks with first inr at first home health visit Date to Start Labs: 10/24/2023 - or first home health visit Requested Start of Care Date: Next Week Physician to follow patient's care (the person listed here will be responsible for signing ongoing orders): Referring Provider I attest that I or another qualified licensed provider saw the patient 90 days prior to or 30 days post admission and this face to face encounter meets the necessary Home Health requirements. The face to face encounter occurred on (date): 10/20/2023 The encounter with the patient was in whole, or in part, for the following medical condition, which is the primary reason for home health care. (List medical condition): aortic stenosis, coronary artery disease with surgery,(mechanical valve requiring warfarin) I certify that, based on my findings, the following services are medically necessary skilled home health services: Wound/Ostomy Care, Other, Labs Comment cardiovascular assessment, remove sutures and dermabond tape over incisions 10-14 days post op, seriel INR called to dr valero office with first inr at first visit Clinical findings that support the need for home care: Medical condition requiring skilled assessment/education, Wound requiring care, assessment, and instruction, Lack of knowledge regarding medications, requires education and assessment I certify that my clinical findings support patient's homebound status. Homebound criteria met because: Poor endurance, Requires assistance of another to leave home safely, Disorders of thought processes impacting decision making and safety, Pain and impaired mobility post-op DING ADMIN Reason for Visit * Auth/Cert Specialty Diagnoses / Procedures Referred By Contac t Referred To Contact Diagnoses CAD in [place] artery Needs CABG (12 or 1300) Procedures N Referral ID Status Reason Start Date Expiration Date Visits Re quested Visits Authorized [id number] 1 1 Encounter Details Date Type Department Care Team (Latest Contact Info) Description 10/13/2023 11:18 PM BUILDING ADMIN - 11/03/2023 7:30 PM CDT Hospital Encounter [facility] [address] [place] [address] Julio Lopez [address] [facility] [place] [address] Frank Cody MD [address] [facility] [place] [address] Jovani Kat DO [address] [place] [address] Jaqueline Valero MD [address] [facility] [address] [place], [place] [id number] 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[place] artery of [place] heart with stable angina pectoris ([facility]/HCC) ([facility]) (Primary Dx); CAD in [place] artery; Aortic stenosis, severe; S/P CABG x 3; NSTEMI (non-ST elevated myocardial infarction) (CMS/[facility]) ([facility]); S/P AVR Discharge Disposition: Discharge to home, home health skilled care Social History Tobacco Use Types Packs/Day Years Used Date Smoking Tobacco: Never Smokeless Tobacco: Former Alcohol Use Standard Drinks/Week Comments No 0 (1 standard drink = 0.6 oz pur e alcohol) [facility] Utilities Answer Date [...] often do you attend chur ch or orthodox services? 1 to 4 times per year [...] on file Legal Sex Male 3:42 AM BUILDING ADMIN Gender Identity Not on file Sexual Orientation Not on file documented as of this encounter Last Filed Vital Signs Vital Sign Reading Time Taken Comments Blood Pressure 140/56 11/03/2023 3:55 PM CDT Pulse 65 11/03/2023 3:55 PM CDT Temperature 36.8 ??C (98.2 ??F) 11/03/2023 3:55 PM CD T Respiratory Rate 18 11/03/2023 3:55 PM CDT Oxygen Saturation 96% 11/03/2023 3:55 PM CDT Inhaled Oxygen Concentration - - Weight 124.8 kg (275 lb 2.2 oz) 11/03/2023 7:30 AM CDT Height 177.8 cm (5' 10 ) 10/17/2023 12: 52 PM BUILDING ADMIN Body Mass Index 39.48 10/17/2023 12:52 PM BUILDING ADMIN documented in this encounter Discharge Summaries * Guerline Rodriguez PA - 11/03/2023 2:32 PM CDT DISCHARGE SUMMARY Patient Name: Juvenal Garvin Jr. Attending Provider: Jaqueline Valero MD Admission Date: 10/13/2023 Discharge Date: 11/03/2023 Principal Problem(s) Severe multivessel coronary artery disease Moderate/severe aortic valve stenosis Secondary Problems Acute on chronic systolic heart failure Hypertension Hyperlipidemia Type 1 diabetes mellitus ESRD on peritoneal dialysis Paroxysmal atrial fibrillation Sleep apnea Obesity GERD Acute blood loss anemia due to surgery Hyponatremia Left lower extremity cellulitis HPI Juvenal Garvin is a 53-year-old male who has been transferred to [facility] for consideration of coronary artery bypass grafting and aortic valve replacement. His past medical history includes severe CAD with previous PCI, paroxysmal atrial fibrillation, type 1 diabetes mellitus, ESRD on peritoneal dialysis, hypertension, hyperlipidemia, and sleep apnea. He presented to [facility] in [place], [place] on 10/09/23 complaining of fatigue, malaise, and shortness of breath for about 3-4 days prior. His blood glucose levels were significantly elevated > 500 and he had an anion gap of 19 on his labs. He was admitted there for management of DKA. Additionally he noted some chest discomfort symptoms, so cardiac troponin levels were drawn which were abnormal. An echocardiogram was obtained that showed moderately severe aortic valve stenosis with a LVEF 25-30%. He subsequently had a cardiac catheterization on 10/13/23 that demonstrated severe multivessel coronary artery disease, the aortic valve was not crossed during the catheterization. He has been transferred to [facility] for consideration of coronary artery bypass and aortic valve replacement. Hospital Course The patient was taken to the operating room by Dr. Valero and underwent coronary artery bypass grafting x 3, aortic valve replacement (On-X mechanical), and sternal plating on 10/17/23. Post-operatively he was transferred to the CVR on mechanical ventilation and vasopressor and inotrope support. Hewas extubated to nasal cannula oxygen on POD1. Dr. Bethea with Endocrinology was consulted to manage his insulin regimen post-operatively. Additionally he was followed by Dr. Carranza from Nephrology to manage his peritoneal dialysis. He was weaned off inotrope support over the next few days. The patient transferred to the PCU on POD3. He was evaluated and treated by both physical therapy and occupational therapy to help regain strength and mobility after surgery. His surgical drains were removed without incident and he was weaned off oxygen therapy. He developed significant swelling and erythema in his lower extremities. He was started on antibiotic therapy for lower extremity cellulitis. His fluid removal was increased during dialysis to help reduce his swelling. This prolonged his hospit alization for several days. On POD17 the patient was ambulating with minimal assistance, pain was well controlled, breathing was stable on room air, and his surgical sites were intact and healing. Thus, he was ready for discharge from the hospital. Operative Procedures Coronary artery bypass grafting x 3, aortic valve replacement (On-X mechanical), and sternal plating on 10/17/23 Discharge Vitals & Physical Exam BP 135/58 (BP Location: Right arm, Patient Position: Sitting) Pulse 65 Temp 36.9 ??C (98.4 ??F)(Oral) Resp 18 Ht 177.8 cm (5' 10 ) Wt 124.8 kg (275 lb 2.2 oz) SpO2 94% BMI 39.48 kg/m?? Gen: A&O, NAD Lungs: slightly diminished breath sounds bilaterally Heart: regular rate and rhythm Ext: warm, 1-2+ lower extremity edema, left lower extremity erythema Skin: sternal incision c/d/i Discharge Disposition The patient was discharged to home in stable condition. Discharge Medications Current Medications TAKE these medications acetaminophen 500 mg capsule Take 1 capsule (500 mg total) by mouth every 6 (six) hours as needed for pain For: pain amiodarone 200 mg tablet Take 1 tablet (200 mg total) by mouth daily Commonly known as: PACERONE Start taking on: November 04, 2023 aspirin 81 mg enteric coated tablet Take 1 tablet (81 mg total) by mouth daily atorvastatin 80 mg tablet Take 1 tablet (80 mg total) by mouth daily Commonly known as: LIPITOR BD Ultra-Fine Short Pen Needle 31 gauge x 5/16 needle U ONE PEN NEEDLE TO INJ INSULIN SC QID Generic drug: pen needle, diabetic calcitRIOL 0.25 mcg capsule Take 1 capsule (0.25 mcg total) by mouth daily Commonly known as: ROCALTROL calcium acetate(phosphat bind) 667 mg capsule Take 1 capsule (667 mg total) by mouth 4 (four) times a day (with meals and nightly) With meals and snack Commonly known as: PHOSLO cephalexin 250 mg capsule Take 1 capsule (250 mg total) by mouth daily for 7 days Commonly known as: KEFLEX cetirizine 10 mg tablet Take 1 tablet (10 mg total) by mouth daily as needed for allergies Commonly known as: ZyrTEC cholecalciferol 2000 unit tablet Take 25 tablets (50,000 Units total) by mouth once a week Commonly known as: VITAMIN D-3 colchicine 0.6 mg tablet Take 1 tablet (0.6 mg total) by mouth 3 (three) times a week Monday, Monday, Monday Commonly known as: COLCRYS EZETIMIBE ORAL Take 10 mg by mouth daily famotidine 40 mg tablet Take 0.5 tablets (20 mg total) by mouth nightly Commonly known as: PEPCID gemfibroziL 600 mg tablet Take 1 tablet (600 mg total) by mouth 2 (two) times a day before breakfast and lunch Commonly known as: LOPID HYDROcodone-acetaminophen 5-325 mg per tablet Take 1 tablet by mouth every 4 (four) hours as needed for pain For: pain Commonly known as: NORCO icosapent ethyL 1 gram capsule Take 2 capsules (2 g total) by mouth 2 (two) times a day Commonly known as: VASCEPA insulin lispro 100 unit/mL vial for injection THIS IS FOR THE INSULIN PUMP: Continue O[employer] 5 insulin pump with M[employer]y G6 CGM at home settings: TIME BASAL RATE TOTAL BASAL DAILY DOSE: 65.85 0330 1.7 units/hour 0800 0.8 units/hour 2000 5.8 units/hour Commonly known as: HumaLOG, ADMELOG levothyroxine 25 mcg tablet Take 1 tablet (25 mcg total) by mouth clamp carrier operator before breakfast Commonly known as: SYNTHROID Start taking on: November 04, 2023 metoprolol tartrate 25 mg immediate release tablet Take 0.5 tablets (12.5 mg total) by mouth 2 (two) times a day Commonly known as: LOPRESSOR omeprazole 20 mg capsule Take 1 capsule (20 mg total) by mouth daily Commonly known as: PriLOSEC torsemide 100 mg tablet Take 1 tablet (100 mg total) by mouth daily Commonly known as: DEMADEX warfarin 2 mg tablet Take 4 mg (2 tabs) daily with dinner, or as directed For: Mechanical Valve Thromboembolism Prophylaxis Commonly known as: COUMADIN Discharge Instructions Activity Instructions Post-Discharge Activity: No strenuous exercise No strenuous exercise for 4 weeks after surgery. Avoid lifting over 10 lb for 2-3 weeks then gradually increase your lifting OK to climb stairs Home health nurse will check on you at home and check your Coumadin (warfarin) blood test Post-Discharge Activity: No water submersion for 6 weeks - including baths, hot tubs, whirlpools, swimming pools Post-Discharge Activity: Start Cardiac Rehab after 4 weeks Post-Discharge Activity: Do not drive car Do not drive car for 3-4 weeks. Post-Discharge Activity: May shower daily SHOWER DAILY WASHING INCISIONS WITH SOAP AND WATER NO LOTIONS, OINTMENTS OR CREAMS ON INCISIONS CALL DR VALERO OFFICE WITH ANY REDNESS OR DRAINAGE OF INCISIONS OR FEVERS [phone] Diet Instructions Adult Discharge Diet Diet Type: Restrict salt intake to less than 4000 mg per day Low fat intake Diabetic renal diet. Heart healthy diet. Limit foods high in Vitamin K while taking Coumadin. High protein intake. Other Instructions Ambulatory referral to Home Health Service Line: Home Health Primary disciplines requested: Senior Living Home Health Services: Disease and Medication Management Labs Wound/Ostomy Care Other Comment: cardiovascular assessment, remove sutures and dermabond tape over incisions 10-14 days post op, seriel INR twice weekly for 4-6 weeks Does the patient have a wound vac?: No Wound Information: remove sutures and dermabond tape over incisions 10-14 days post op (TAPE WILL NOT FALL OFF ON OWN) Labs: INR INR frequency: INR twice weekly for 4-6 weeks with first inr at first home health visit Date to Start Labs: 10/24/2023 Comment - or first home health visit Requested Start of Care Date: Next Week Physician to follow patient's care (the person listed here will be responsible for signing ongoing orders): Referring Provider I attest that I or another qualified licensed provider saw the patient 90 days prior to or 30 days post admission and this face to face encounter meets the necessary Home Health requirements. The face to face encounter occurred on (date): 10/20/2023 The encounter with the patient was in whole, or in part, for the following medical condition, whichis the primary reason for home health care. (List medical condition): aortic stenosis, coronary artery disease with surgery,(mechanical valve requiring warfarin) I certify that, based on my findings, the following services are medically necessary skilled home health services: Wound/Ostomy Care Other Labs Comment: cardiovascular assessment, remove sutures and dermabond tape over incisions 10-14 days post op, seriel INR called to dr valero office with first inr at first visit Clinical findings that support the need for home care: Medical condition requiring skilled assessment/education Wound requiring care, assessment, and instruction Lack of knowledge regarding medications, requires education and assessment I certify that my clinical findings support patient's homebound status. Homebound criteria met because: Poor endurance Requires assistance of another to leave home safely Disorders of thought processes impacting decision making and safety Pain and impaired mobility post-op Call surgeon for: Breathing Problems --Difficultly breathing at rest, with activity, or at night. --Increased cough. Call surgeon for: Change in drainage or if drainage starts again when none was present Call surgeon for: Check incision and call provider for the following: --Any redness, swelling, red streaks around incision/drain, or IV sites or change in appearance or abnormal bleeding. Call surgeon for: General Problems Chest pain, heaviness, or tightness Chills/fever over 100.4 degrees F Swelling in ankles, legs, or belly --Sweating, weakness, or fainting. --Persistent nausea or vomiting. --Persistent or increasing pain not resolved with medication. --Burning, pain, or urgency with urination. --Weight gain of more than 2 lbs over 2 days. Special Instructions - Medication Safety (see comment) Keep a list of all medications you take including medications you can purchase without a prescription, like vitamins and herbal products. Carry this list with you at all times in case of emergency. Give the list to your primary care doctor. Update the list whenever a medication is discontinued, a new medication is added, or a medication dose has changed. Special Instructions: Incentive spirometer USE YOUR INCENTIVE SPIROMETER 4 TIMES DAILY FOR 2 MORE WEEKS (5-10 BREATHS EACH TIME) Follow-up Future Appointments Date Time Provider Department Center 11/22/2023 9:30 AM Jaqueline Valero MD [facility] [id number] PSA Contact Information for Follow-ups [facility] Home Care Services Specialty: Home Health and Hospice [phone] [address] Next Steps: Follow up Questions: Service Line: Home Health Primary disciplines requested: Senior Living Home Health Services: Disease and Medication Management Labs Wound/Ostomy Care Other Comment: cardiovascular assessment, remove sutures and dermabond tape over incisions 10-14 days post op, seriel INR twice weekly for 4-6 weeks Does the patient have a wound vac?: No Wound Information: remove sutures and dermabond tape over incisions 10-14 days post op (TAPE WILL NOT FALL OFF ON OWN) Labs: INR INR frequency: INR twice weekly for 4-6 weeks with first inr at first home health visit Date to Start Labs: 10/24/2023 Comment - or first home health visit Requested Start of Care Date: Next Week Physician to follow patient's care (the person listed here will be responsible for signing ongoing orders): Referring Provider I attest that I or another qualified licensed provider saw the patient 90 days prior to or 30 days post admission and this face to face encounter meets the necessary Home Health requirements. The face to face encounter occurred on (date): 10/20/2023 The encounter with the patient was in whole, or in part, for the following medical condition, whichis the primary reason for home health care. (List medical condition): aortic stenosis, coronary artery disease with surgery,(mechanical valve requiring warfarin) I certify that, based on my findings, the following services are medically necessary skilled home health services: Wound/Ostomy Care Other Labs Comment: cardiovascular assessment, remove sutures and dermabond tape over incisions 10-14 days post op, samanta INR called to dr valero office with first inr at first visit Clinical findings that support the need for home care: Medical condition requiring skilled assessment/education Wound requiring care, assessment, and instruction Lack of knowledge regarding medications, requires education and assessment I certify that my clinical findings support patient's homebound status. Homebound criteria met because: Poor endurance Requires assistance of another to leave home safely Disorders of thought processes impacting decision making and safety Pain and impaired mobility post-op Referral Status: Some Visits Scheduled Aditya Correa MD Specialty: Family Medicine Relationship: PCP - General [address] [facility] [address] Next Steps: Follow up Comments: Follow up with established provider: 4 weeks Questions: To provider: ADITAY CORREA [facility] [address] [place] [phone] Next Steps: Follow up Comments: Dr. Valero is patient's Cardiothoracic Surgeon and will not be managing patient during Cardiac Rehab. Please contact patient's established General Surgeon, Dr. Hamlet Ortega, for additional information. Questions: Please select the performing region: External Order To loc/pos: [facility] Inpatient POS Select a phase: Phase 2 # of visits: 1 Referral Status: External - Ready to Schedule Cosigned by Jaqueline Valero MD at 11/04/2023 2:05 PM CDT documented in this encounter Discharge Instructions * Discharge Instr - Diet* Carly Spencer RD - 10/20/2023 3:29 PM BUILDING ADMIN Diabetic renal diet. Heart healthy diet. Limit foods high in Vitamin K while taking Coumadin. High protein intake. DING ADMIN DING ADMIN * Attachments The following attachments cannot be sent through Care Everywhere. * CABG (Coronary Artery Bypass Graft) (Discharge Care) (Tunisian) * Transcatheter Aortic Valve Replacement (Discharge Care) (Tunisian) * Sternal Precautions (Novelty Printing Machine Operator) (Tunisian) * Warfarin (By mouth) (Tunisian) documented in this encounter Medications at Time of Discharge acetaminophen 500 mg capsuleIndications:P ain Take 1 capsule (500 mg total) by mouth every 6 (six) hours as needed for pain 11/03/2023 aspirin 81 mg enteric coated tabletIndications:My ocardial Reinfarction Prevention Take 1 tablet (81 mg total) by mouth daily 11/07/2013 atorvastatin (LIPITOR) 80 mg tabletIndications:hy perlipidemia Take 1 tablet (80 mg total) by mouth daily calcitRIOL (ROCALTROL) 0.25 mcg capsuleIndications:h ypophosphatemia Take [...] (three) times a week Monday, Monday, Monday EZETIMIBE ORAL Take 10 mg by mouth daily famotidine (PEPCID) 40 mg tabletIndications:ga stroesophageal reflux disease,Heartburn Prevention Take 0.5 tablets (20 mg total) by mouth nightly gemfibroziL (LOPID) 600 mg tabletIndications:hy pertriglyceridemia Take 1 tablet (600 mg total) by mouth 2 (two) times a day before breakfast and lunch HYDROcodone-acetamin ophen (NORCO) 5-325 mg per tabletIndications:Pa in Take 1 tablet by mouth every 4 (four) hours as needed for pain 30 tablet 11/03/2023 icosapent ethyL (VASCEPA) 1 gram capsuleIndications:h ypertriglyceridemia Take 2 capsules (2 g total) by mouth 2 (two) times a day insulin lispro (HumaLOG, ADMELOG) 100 unit/mL vial for injectionIndications :type 2 diabetes mellitus THIS IS FOR THE INSULIN PUMP: Continue Omnipod 5 insulin pump with [employer] G6 CGM at home settings: TIME BASAL RATE TOTAL BASAL DAILY DOSE: 65.85 0330 1.7 units/hour 0800 0.8 units/hour 2000 5.8 units/hour 06/29/2022 ketoconazole (NIZORAL) 2 % shampoo APPLY EXTERNALLY 2 TO 3 TIMES EVERY WEEK NEEDED 04/23/2019 levothyroxine (SYNTHROID) 25 mcg tabletIndications:hy pothyroidism Take 1 tablet (25 mcg total) by mouth clamp carrier operator before breakfast 30 tablet 1 11/04/2023 Linzess 72 mcg capsule Take 1 capsule every day by oral route as directed for 90 days. 07/10/2023 metoprolol tartrate (LOPRESSOR) 25 mg immediate release tabletIndications:hy pertension Take 0.5 tablets (12.5 mg total) by mouth 2 (two) times a day 30 tablet 1 11/03/2023 nitroglycerin (NITROSTAT) 0.4 mg SL tablet 12/27/2017 omeprazole (PriLOSEC) 20 mg capsuleIndications:G I Bleed,prevention Take 1 capsule (20 mg total) by mouth daily peg [id number] cerin (ARTIFICAL TEARS) 1-0.2-0.2 % ophthalmic solution 1 drop 4 (four) times a day 07/07/2022 pen needle, diabetic (BD Ultra-Fine Short Pen Needle) 31 gauge x 01/03 needle 01/30/2018 torsemide (DEMADEX) 100 mg tabletIndications:Ed avery Take 1 tablet (100 mg total) by mouth daily 30 tablet 1 11/03/2023 warfarin (COUMADIN) 2 mg tabletIndications:Me chanical Valve Thromboembolism Prophylaxis Take 4 mg (2 tabs) daily with dinner, or as directed 60 tablet 1 11/03/2023 cephalexin (KEFLEX) 250 mg capsuleIndications:P rophylaxis, Medical Take 1 capsule (250 mg total) by mouth daily for 7 days 7 capsule 11/03/2023 11/10/19 24 amiodarone (PACERONE) 200 mg tabletIndications:Ca rdioversion of Atrial Fibrillation Take 1 tablet (200 mg total) by mouth daily 30 tablet 1 11/04/2023 11/22/19 24 documented as of this encounter Ordered Prescriptions Prescription Sig Dispense Quantity Refills Last Filled Start Date End Date torsemide (DEMADEX) 100 mg tabletIndications:Ed avery Take 1 tablet (100 mg total) by mouth daily 30 tablet 1 11/03/2023 warfarin (COUMADIN) 2 mg tabletIndications:Me chanical Valve Thromboembolism Prophylaxis Take 4 mg (2 tabs) daily with dinner, or as directed 60 tablet 1 11/03/2023 levothyroxine (SYNTHROID) 25 mcg tabletIndications:hy pothyroidism Take 1 tablet (25 mcg total) by mouth clamp carrier operator before breakfast 30 tablet 1 11/04/2023 HYDROcodone-acetamin ophen (NORCO) 5-325 mg per tabletIndications:Pa in Take 1 tablet by mouth every 4 (four) hours as needed for pain 30 tablet 11/03/2023 metoprolol tartrate (LOPRESSOR) 25 mg immediate release tabletIndications:hy pertension Take 0.5 tablets (12.5 mg total) by mouth 2 (two) times a day 30 tablet 1 11/03/2023 acetaminophen 500 mg capsuleIndications:P ain Take 1 capsule (500 mg total) by mouth every 6 (six) hours as needed for pain 11/03/2023 cephalexin (KEFLEX) 250 mg capsuleIndications:P rophylaxis, Medical Take 1 capsule (250 mg total) by mouth daily for 7 days 7 capsule 11/03/2023 amiodarone (PACERONE) 200 mg tabletIndications:Ca rdioversion of Atrial Fibrillation Take 1 tablet (200 mg total) by mouth daily 30 tablet 1 11/04/2023 4 documented in this encounter Discharge Disposition Disposition Code Departure Means Destination Comment s Discharge to home, home health skilled care documented in this encounter Progress Notes * Sukumar, Giuseppe Maggie, RD - 11/03/2023 4:22 PM CDT Nutrition Follow-up Progress Note Encounter Date: 11/03/23 4:22 PM Nutrition Progress Summary: Patient is a 53 y.o. male. Admit Dx: CAD in [place] artery [I25.10]. Admitted on 10/13/2023. Patient's intake is adequate. Objective Dietary Orders (From admission, onward) Start Ordered 10/26/23 1235 Adult Diet Restricted; Consistent Carbohydrate; Renal; 1000mL = Diet 700/Nursing 300 Diet effective now Question Answer Comment ([facility]) Diet type Restricted Diabetic: Consistent Carbohydrate Renal: Renal Fluid restriction dietary / 24h: 1000mL = Diet 700/Nursing 300 10/26/23 1235 10/19/23 2100 Bedtime snack At bedtime Comments: If bedtime BG is less than 100mg/dl, give patient a 15 gram carbohydrate snack. 10/19/23 1908 10/19/23 1147 Oral Nutrition Supplements Select Supplement: Nepro - Any Flavor With Breakfast and Dinner Question: Select Supplement: Answer: Nepro - Any Flavor 10/19/23 1146 Anthropometrics Weight: 124.8 kg (275 lb 2.2 oz) Admission Weight : 123.1 kg Weight Change: -0.69 kg (-1.54 lbs) IBW/kg (Calculated) : 75.3 kg Height: 177.8 cm (5' 10 ) Weight in (lb) to have BMI = 25: 173.9 BMI (Calculated): 39.5 Intake/Output Summary (Last 24 hours) at 11/03/2023 1622 Last data filed at 11/03/2023 1300 Gross per 24 hour Intake 30 ml Output 3929 ml Net -3899 ml Medications and Lab Review: Scheduled Meds: al & mag hydroxide rfablfttbjp-mtnjyynvmnnqruw-nurvzlpnq-nystatin, 20 mL, swish & swallow, Q6H amiodarone, 200 mg, oral, Daily aspirin, 81 mg, oral, Daily atorvastatin, 80 mg, oral, Daily calcitRIOL, 0.25 mcg, oral, Daily calcium acetate(phosphat bind), 1,334 mg, oral, TID with meals ceFAZolin, 1,000 mg, intravenous, Q24H ASHLEY docusate sodium, 100 mg, oral, BID epoetin genia-epbx, 10,000 Units, subcutaneous, Weekly - 2100 ezetimibe, 10 mg, oral, Daily gentamicin, , topical, Daily [Held by Provider] insulin lispro, 0-10 Units, subcutaneous, QID (with meals & nightly) [Held by Provider] insulin lispro, 4 Units, subcutaneous, TID with meals [Held by Provider] insulin NPH, 15 Units, subcutaneous, Daily [Held by Provider] insulin NPH, 35 Units, subcutaneous, Nightly levothyroxine, 25 mcg, oral, Daily - 0600 metoprolol tartrate, 12.5 mg, oral, BID pantoprazole DR, 40 mg, oral, Daily polyethylene glycol, 17 g, oral, Daily senna, 1 tablet, oral, BID sodium chloride 0.9%, 0.5-20 mL, intra-catheter, Q8H ASHLEY sodium chloride, 1 g, oral, BID with meals (bkfst, dinner) torsemide, 100 mg, oral, BID DIURETIC warfarin, 4 mg, oral, Once - 1800 Continuous Infusions: Dianeal low calcium-dextrose 2.5 % 6,000 mL with heparin 3,000 Units dialysis solution, Dianeal low calcium-dextrose 4.25 % 6,000 mL with heparin 3,000 Units dialysis solution, Extraneal 7.5% AMBU-FLEX 2,500 mL with heparin 1,250 Units dialysis solution, heparin, 0-33 Units/kg/hr, Last Rate: Stopped (11/03/23 1003) INSULIN SUBCUTANEOUS PUMP insulin lispro, 0-25 Units PRN Meds: acetaminophen OR [DISCONTINUED] acetaminophen OR [DISCONTINUED] acetaminophen benzocaine-menthoL bisacodyL sodium chloride 0.9% dextrose OR dextrose glucagon guaiFENesin heparin OR heparin HYDROcodone-acetaminophen OR HYDROcodone-acetaminophen insulin lispro magnesium sulfate ondansetron potassium chloride ER OR [DISCONTINUED] potassium chloride potassium chloride ER OR [DISCONTINUED] potassium chloride ramelteon sodium chloride 0.9% vancomycin Sodium Date Value Ref Range Status 11/03/2023 132 (L) 135 - 145 mmol/L Final Potassium, pl Date Value Ref Range Status 11/03/2023 3.7 3.3 - 4.9 mmol/L Final BUN Date Value Ref Range Status 11/03/2023 79 (H) 6 - 25 mg/dL Final Creatinine Date Value Ref Range Status 11/03/2023 8.23 (H) 0.80 - 1.30 mg/dL Final Phosphorus, pl Date Value Ref Range Status 11/03/2023 4.2 2.3 - 4.5 mg/dL Final Albumin Date Value Ref Range Status 11/03/2023 2.9 (L) 3.5 - 5.0 g/dL Final Magnesium Date Value Ref Range Status 11/03/2023 2.4 1.4 - 2.5 mg/dL Final Calcium Date Value Ref Range Status 11/03/2023 8.9 8.5 - 10.3 mg/dL Final Lab Results Component Value Date HGBA1C 8.1 (H) 10/16/2023 Nursing Assessment: Last BM Date: 11/01/23 Bowel Sounds (All Quadrants): Active Rex Scale Score: 20 Skin Integrity: Blister, Puncture, Surgical incision Surgical Site 10/17/23 Mid-line Sternum sternotomy-Negative Pressure Wound Therapy Used: Yes Nutrition Needs Calculations: Calculated Energy Needs Using Equations Weight: 124.8 kg (275 lb 2.2 oz) Height: 177.8 cm (5' 10 ) Minute Ventilation (L/min): 9.7 L/min Estimated Protein Needs Type of Weight Used for Estimated Protein : [place] Protein Needs Based on g/k.4 Total Protein Estimated Needs (gm): 105.42 Kcal/kg Type of Weight Used for Estimated Kcals: [place] Kcal/k Total Kcal/kg Estimated Needs : 2259 Impression: Pt screened for a follow up. Pt reported that appetite would be more consistent if food came hot, and if he was able to have what he orders from day to day. Mentioned that he will be able to order certain things from day to day, but on others he will be denied, with no explanation. Pt reported thatappetite is great, and that he will eat his entire meal when it is correct. Per chart documentationintake has been recorded at 75-100%. Pt also mentioned that he is not receiving his Nepro correctly, stated he will only receive it once per day instead of BID. Discussed that with dietary restrictions that pt currently has, foods or liquids may be removed, if A) it is too many carbohydrates, or B)if it would put him over his fluid limit. Pt reported understanding, but mentioned frustration. Discussed looking into diet restrictions, but after reviewing labs, would recommend pt continue with a consistent carbohydrate and renal diet. Plan: Added supervisor fish hatchery check to pt's diet to help with ONS getting on tray. Monitor PO intake. Follow up per policy. Current Nutrition Issues: Nutrition Diagnosis 1: Increased nutrient needs (protein) Related to: Recent surgery Evidenced by: Physical finding Nutrition Plan: Interventions: Encouragement, Medical food supplement, Education, nutrition Monitoring and Evaluation: Plan of care, Labs, PO intake, Diet-related questions Goals: Patient/caregiver able to teach back understanding of role of diet in disease process prior to discharge Diet Instructions Adult Discharge Diet Diet Type: Restrict salt intake to less than 4000 mg per day Low fat intake Diabetic renal diet. Heart healthy diet. Limit foods high in Vitamin K while taking Coumadin. High protein intake. Giuseppe Patino RD, LD * Fernandez Carranza MD - 11/03/2023 2:42 PM CDT Images from the original note were not included. Nephrology Juvenal Garvin Jr. - 1970 Primary : Aditya Correa MD History and interval events: 53-year-old gentleman with history of type 1 diabetes mellitus on insulin pump, CHF, CAD, ESRD on peritoneal dialysis initially presented to [facility] on October 09 for symptoms of general malaise for the past 4 days prior to admission. Patient was having symptoms of nausea with dry heaves. He presented hemodynamically stable. His glucose was measured to be 584, beta hydroxybutyrate 2.9 with an anion gap of 19. Patient was transferred to the ICU for insulin dripand DKA management. During this hospitalization his troponin was measured to be elevated prompting a cardiology consultation which lead to a [facility]. Results were notable for severe CAD and he was recommended to seek surgical revascularization evaluation prompting transfer to this facility. He missed his peritoneal dialysis last evening during transfer. He has been on peritoneal dialysis for approximately 2 years and tolerating this well under the care of Dr. Reyes. He does make some urine. S/P 3v CABG and Mech AVR 10/17 Sitting in a bedside chair. PD went well lost night and he tolerated this well with initial drain of 1280 and UF of 2637 Prehospital weight 270 - current weight is 275 Medication: Current medication list reviewed Intake and Output Summary: Intake/Output Summary (Last 24 hours) at 11/03/2023 1442 Last data filed at 11/03/2023 1300 Gross per 24 hour Intake 30 ml Output 3929 ml Net -3899 ml Vital Signs: Vitals: 11/03/23 1132 BP: 135/58 Pulse: 65 Resp: 18 Temp: 36.9 ??C (98.4 ??F) SpO2: 94% Physical Exam: General Sitting up on the edge of the bed with his feet dependent H&N ?JVP Eyes Pupils symmetrical with no scleral icterus Chest CTA Heart S1S2 reg Abdomen Soft and non tender PD catheter present Extremeties +2 lower extremity edema, erythema Neuro No tremor, awake and alert CBC: Recent Labs Lab Units 11/03/23 0441 11/02/23 0216 11/01/23 0209 WBC K/cumm 4.8 5.0 5.9 HEMOGLOBIN g/dL 7.6* 7.5* 7.7* HEMATOCRIT % 24.4* 24.5* 25.0* PLATELETS K/cumm 389 391 381 RFP: Recent Labs Lab Units 11/03/23 0441 11/02/23 0216 11/01/23 0209 10/31/23 0225 SODIUM mmol/L 132* 128* 131* 131* POTASSIUM PLASMA mmol/L 3.7 3.9 4.0 4.0 CHLORIDE mmol/L 92* 89* 91* 91* CO2 mmol/L 27 25 25 24 BUN SERUM mg/dL 79* 86* 89* 90* CREATININE mg/dL 8.23* 8.74* 8.97* 9.34* CALCIUM mg/dL 8.9 9.3 9.1 9.5 PHOSPHORUS PLASMA mg/dL 4.2 3.7 4.1 4.8* ALBUMIN g/dL 2.9* 2.7* 2.9* 2.7* Impression and Recommendations: 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 - [address] [place], [place] [id number] [phone] Office [phone] - Fax * Nusrat Us [facility] - 11/03/2023 11:05 AM CDT Warfarin monitoring Lab Results Component Value Date/Time INR 1.74 (H) 11/03/2023 04:41 AM HGB 7.6 (L) 11/03/2023 04:41 AM HGB 8.1 (L) 10/17/2023 12:26 PM HCT 24.4 (L) 11/03/2023 04:41 AM HCT 30.0 (L) 06/05/2022 03:22 PM LABPLAT 389 11/03/2023 04:41 AM Warfarin dose today: 4 mg Slight INR increase from 1.68 to 1.74 with acute postop goal of 2-2.5. Patient was sensitive in thevery acute postop timeframe to a 3 mg dose that was given, so expecting responses from the 4 mg doses given yesterday and today. * Joselin Strickland MD - 11/03/2023 10:59 AM CDT Daily Progress Addendum 53-year-old male with a history of hypertension, hyperlipidemia, type 1 diabetes, end-stage renal disease, paroxysmal atrial fibrillation, coronary artery disease status post coronary bypass graftingx3 and AVR with ON-X mechanical valve on 10/17/2023 with BRICE to LAD, SVG to OM, SVG to PDA EF was 2 5% preop down from 65% in May of 2022 Patient seen and examined. Feeling much better , edema is improving. Patient on heparin drip his INR today was 1.74. Hemoglobin is 7.6 monitor for now Joselin Strickland MD [facility] SUBJECTIVE: Mr. Garvin is doing well overall. No acute complaints. OBJECTIVE: Vitals: 11/02/23 2042 11/03/23 0100 11/03/23 0425 11/03/23 0730 BP: 141/67 141/57 131/66 135/53 BP Location: Right arm Right arm Right arm Right arm Patient Position: Reclining Lying Reclining Pulse: 66 66 64 67 Resp: 18 18 16 16 Temp: 37 ??C (98.6 ??F) 36.8 ??C (98.2 ??F) 36.9 ??C (98.5 ??F) TempSrc: Oral Oral Oral SpO2: 97% 97% 97% 96% Weight: 124.8 kg (275 lb 2.2 oz) Height: Intake/Output Summary (Last 24 hours) at 11/03/2023 1059 Last data filed at 11/03/2023 0846 Gross per 24 hour Intake 30 ml Output 3929 ml Net -3899 ml Scheduled Medications Medication Dose Route Frequency al & mag hydroxide yveeonzkxjl-ffpvypkmlkxuwvo-mqvvldkiq-nystatin (MAGIC MOUTHWASH) oral suspension 1-1-1-1 20 mL 20 mL swish & swallow Q6H amiodarone (PACERONE) tablet 200 mg 200 mg oral Daily aspirin chewable tablet 81 mg 81 mg oral Daily atorvastatin (LIPITOR) tablet 80 mg 80 mg oral Daily calcitRIOL (ROCALTROL) capsule 0.25 mcg 0.25 mcg oral Daily calcium acetate(phosphat bind) (PHOSLO) capsule 1,334 mg 1,334 mg oral TID with meals ceFAZolin (ANCEF) 1 gram/10 mL in sterile water (premix) 1,000 mg 1,000 mg intravenous Q24H ASHLEY docusate sodium (COLACE) capsule 100 mg 100 mg oral BID epoetin genia-epbx (RETACRIT) (10,000 unit/mL) injection 10,000 Units 10,000 Units subcutaneous Weekly - 2100 ezetimibe (ZETIA) tablet 10 mg 10 mg oral Daily gentamicin (GARAMYCIN) 0.1 % cream topical Daily [Held by Provider] insulin lispro (HumaLOG, ADMELOG) 100 unit/mL injection 0-10 Units 0-10 Units subcutaneous QID (with meals & nightly) [Held by Provider] insulin lispro (HumaLOG, ADMELOG) 100 unit/mL injection 4 Units 4 Units subcutaneous TID with meals [Held by Provider] insulin NPH (HumuLIN N, NovoLIN N) 100 unit/mL injection 15 Units 15 Units subcutaneous Daily [Held by Provider] insulin NPH (HumuLIN N, NovoLIN N) 100 unit/mL injection 35 Units 35 Units subcutaneous Nightly levothyroxine (SYNTHROID) tablet 25 mcg 25 mcg oral Daily - 0600 metoprolol tartrate (LOPRESSOR) immediate release tablet 12.5 mg 12.5 mg oral BID pantoprazole DR (PROTONIX) extended release tablet 40 mg 40 mg oral Daily polyethylene glycol (MIRALAX) packet 17 g 17 g oral Daily senna (SENOKOT) tablet 1 tablet 1 tablet oral BID sodium chloride 0.9% flush 0.5-20 mL 0.5-20 mL intra-catheter Q8H ASHLEY sodium chloride tablet 1 g 1 g oral BID with meals (bkfst, dinner) torsemide (DEMADEX) tablet 100 mg 100 mg oral BID DIURETIC LABS: Recent Labs Lab Units 11/03/23 0441 WBC K/cumm 4.8 HEMOGLOBIN g/dL 7.6* HEMATOCRIT % 24.4* PLATELETS K/cumm 389 Recent Labs Lab Units 11/03/23 0805 11/03/23 0441 SODIUM mmol/L -- 132* POTASSIUM PLASMA mmol/L -- 3.7 CHLORIDE mmol/L -- 92* CO2 mmol/L -- 27 ANIONGAP mmol/L -- 13 GLUCOSE mg/dL -- 252* POC GLUCOSE MONITOR mg/dL 235* -- BUN SERUM mg/dL -- 79* CREATININE mg/dL -- 8.23* CALCIUM mg/dL -- 8.9 ALBUMIN g/dL -- 2.9* Lab Results Component Value Date BNP 113 (H) 03/21/2017 BNP 13 11/05/2013 Lab Results Component Value Date TROPONINI 0.03 03/21/2017 TROPONINI 0.03 03/21/2017 TROPONINI <0.03 11/06/2013 Exam General: in no apparent distress Neuro: Alert and oriented x 3, moves all extremities well HEENT: normocephalic, atraumatic, thyroid not enlarged. Neck: I do not appreciate JVD. Lungs: symmetric, unlabored, clear to auscultation bilaterally Heart: S1,S2, regular rate & rhythm, no murmurs, rubs, or gallops Abdomen: obese, soft, non-tender, non-distended, bowel sounds present Extremities: 1+ BLE edema, palpable peripheral pulses BL, mild BLE erythema Neurologic: No focal deficits Skin: sternotomy healing well ASSESSMENT/PLAN: CAD - prior SC with multiple PCI - C showed multivessel disease - LVEF dropped to ~25% (was 65% in 05/2022) - s/p CABG x3 and AVR on 10/17/23 with BRICE to LAD, SVG to OM, SVG to PDA -stable, will need repeat echo in ~3 months Aortic Stenosis - AVR during CABG with 25 mm OnX mechanical prosthesis - warfarin dosing per pharmacy - INR 1.68 Hypertension - controlled on current regimen Dyslipidemia - continue Atorvastatin 80 mg and Ezetimibe 10 mg DM1 - stable with management per primary team ESRD - PD Per Nephrology Paroxysmal Atrial Fibrillation - occurred in 06/2022 during hospitalization - has had intermittent arrhythmia this admission - he is now in sinus rhythm - continue Amiodarone and Lopressor - on Warfarin DVT - h/o RLE in 2017 - was on apixaban -> heparin -> wafarin with mechanical valve Hyponatremia - 128 today - on torsemide 100 mg BID - on fluid restriction - management per primary/nephrology team BLE swelling/redness/warmth -LLE > RLE, improving -On IV antibiotics for cellulitis. -venous doppler shows no DVT SHAMIKA Donald [facility] 11/03/2023 10:59 AM * Nusrat Us RPh - 11/03/2023 10:56 AM CDT Pharmacy Vancomycin Monitoring: Day 4 - SSTI Current Regimen: 1500 mg intermittent dosing (PD) Estimated Creatinine Clearance: 10.5 mL/min (A) (by Cockcroft-Gault based on SCr of 8.23 mg/dL (H)). Plan: Patient received vancomycin dose around 09:30 yesterday. Random level ordered for tomorrow morning (11/03 0500). Pharmacy will continue to follow the patient???s regimen and clinical progress daily. * Nona Alcala PA - 11/02/2023 4:27 PM CDT Cardiothoracic Surgery Progress Note Subjective Chief Complaint: Severe multivessel coronary artery disease, moderate/severe aortic valve stenosis;s/p coronary artery bypass grafting x 3, aortic valve replacement (On-X mechanical), and sternal plating on 10/17/23 Interval History: Patient doing well today, pain controlled, ambulating in hallways, legs improved. Objective VS: BP 139/57 (BP Location: Right arm, Patient Position: Reclining) Pulse 72 Temp 36.9 ??C (98.4 ??F) (Oral) Resp 18 Ht 177.8 cm (5' 10 ) Wt 125.5 kg (276 lb 10.8 oz) SpO2 96% BMI 39.70 kg/m?? 24hr Min/Max: Temp Min: 36.7 ??C (98.1 ??F) Max: 37.4 ??C (99.4 ??F) Pulse Min: 66 Max: 75 BP Min: 133/66 Max: 163/75 Resp Min: 18 Max: 18 SpO2 Min: 93 % Max: 98 % Intake/Output Summary (Last 24 hours) at 11/02/2023 1627 Last data filed at 11/02/2023 1310 Gross per 24 hour Intake 962 ml Output 4417 ml Net -3455 ml Cardiac Telemetry: sinus rhythm Physical Exam: Gen: Awake and alert, sitting up in bed, nad. Lungs: Normal resp pattern, room air Heart: NSR Ext: 2+ lower extremity edema, bilateral lower extremity erythema L > R, improved Skin: Sternal incision c/d/i Lab Review: Lab Results Component Value Date WBC 5.0 11/02/2023 HGB 7.5 (L) 11/02/2023 HCT 24.5 (L) 11/02/2023 LABPLAT 391 11/02/2023 SODIUM 128 (L) 11/02/2023 POTASSIUM 3.9 11/02/2023 CHLORIDE 89 (L) 11/02/2023 CO2 25 11/02/2023 ANIONGAP 14 11/02/2023 BUNSER 86 (H) 11/02/2023 CREATININE 8.74 (H) 11/02/2023 GLUCOSE 178 (H) 11/02/2023 GLUCOSE 353 (H) 11/02/2023 CALCIUM 9.3 11/02/2023 MAGNESIUM 2.4 11/02/2023 APTT 36 11/02/2023 INR 1.68 (H) 11/02/2023 PT 19.1 (H) 11/02/2023 Assessment Severe multivessel coronary artery disease, moderate/severe aortic valve stenosis; s/p coronary artery bypass grafting x 3, aortic valve replacement (On- X mechanical), and sternal plating on 10/17/23 Acute on chronic systolic heart failure Hypertension Hyperlipidemia Type 1 diabetes mellitus ESRD on peritoneal dialysis Paroxysmal atrial fibrillation Sleep apnea Obesity GERD Acute blood loss anemia due to surgery Hyponatremia Left lower extremity cellulitis Plan ASA + Warfarin for anticoagulation, INR 1.68 today Metoprolol 12.5 mg BID for BP/HR control Amiodarone 200 mg daily for anti-arrhythmic therapy Atorvastatin and Ezetimibe for lipid lowering therapy Torsemide 100 mg BID and peritoneal dialysis nightly per Nephrology Continue Phoslo, Calcitriol, and Retacrit weekly Home insulin pump for glucose control, Endocrinology following Continue Ancef for left lower extremity cellulitis. Received a dose of Vanc yesterday Levothyroxine 25 mcg started per Endocrine [place] prn for pain control CPAP nightly Stress ulcer prophylaxis: Protonix DVT prophylaxis: coumadin dosing PT/OT Plan reviewed with LESLY Vallecillo 11/02/2023 * Nida Starr, FREIGHT AND PASSENGER AGENT - 11/02/2023 2:54 PM CDT Physical Therapy 11/02/23 1454 PT Last Visit Session Type Treatment PT Received On 11/02/23 Safe Environment Arm band checked;Patient found sitting in chair;Session completed bedside;Gait belt utilized for all out of bed mobility Subjective Agreeable to Therapy Subjective Comment Pt reports feeling very tired today. Agreeable to treatment just states he did not sleep well last night Family/Caregiver Present No Precautions Precautions Cardiac sternal;Fall risk Precaution Comments Pt recalls 4/4 sternal precautions Activity Tolerance Activity Tolerance Comments pre-activity vitals: BP: 133/68, HR: 70bpm, O2 sats: 97%. Post activityvitals: BP: 145/49 HR: 74bpm, O2 sats: 95% on room air Pain Assessment Pain Assessment 0-10 Pain Score 0 - No pain Clinical Progression Not changed (0/10) Cognition Overall Cognitive Status WFL Orientation Oriented X4 (person, place, time, situation) Compliance/Behavior Easy to engage Static Standing Balance Static Standing-Balance Support Bilateral upper extremity supported Static Standing-Standing Surface Floor Static Standing-Level of Assistance Distant supervision Seated Seated-Exercises Lower extremity Seated-Exercise Type Ankle pumps;Hip flexion;Glut sets;Long arc quads;ABduction;ADduction Reps/Sets 15 Seated-Motion AROM Other Activities Other Activities Comments Incentive spirometer x 10 reps fom [id number] Transfer 1 Transfer From 1 Sit;Chair with arms Transfer Type 1 To and from Transfer to 1 Stand Transfer Device 1 Wheeled walker Transfer Level of Assistance 1 Standby Assist;Distant supervision Ambulation 1 Distance (ft) 1 360' Surface 1 Level tile Device 1 Wheeled walker Assistance 1 Standby Assist Gait: Requires assist with 1 Maintaining balance Gait: Requires verbal cues to 1 Utilize pursed lip breathing Gait Deviations 1 Base of support - increased;David - decreased;Foot drop/foot slap;Heel strike -decreased;Hip/knee flexion during swing phase - decreased;Step length - decreased Quality of Gait 1 Pt with decreased foot clearance causing socks to come off of feet Ambulation Comments 1 (S) Practice ambulation without WW on next session or potentially a cane if needed. Other Comments Other PT Comments Pt tolerates treatment well this date. Pt does report increased fatigue this date. Pt encouraged to ambulate again later this date and try to stay awake more during day so he can sleep better at night as pt states he is not sleeping well. Overall, pt is improving well. Plan to trial ambulation without AD or cane next session as pt was not using a device prior to admission Safe Environment End of Therapy Session Safe Environment End of Therapy Session Patient left in recliner;RN notified;Overbed table within reach;Call light within reach Assessment Prognosis Good Problem List Gait deviations;Decreased strength;Decreased endurance;Impaired balance;Decreased mobility Plan Plan Continue with current plan;If this is the last note, consider this the discharge summary Recommendation/Plan PT Recommendation/Plan (S) Home with family;Home with intermittent assist PT Frequency during current admission 3-5x/wk Treatment/Interventions during current admission Balance Training;Bed mobility;Compensatory technique education;Endurance training;Functional activity;Functional transfer training;Gait training;Therapeutic activity;Therapeutic exercise;Transfer training PT Equipment Recommended Wheeled walker Progress during current admission Progressing toward goals Education: Patient has been educated on the safety , precautions, mobility training, and home exercise program. Education completed via explanation, teach back, and demonstration. Patient verbalized understanding and demonstrated understanding Multi-Disciplinary Problems (from Physical Therapy) Active Problems Problem: PT Misc Start Date: 10/21/23 Goal Start Date Expected End Date End Date PT [place] [facility] [place] 10/[place]/23 11/04/23 -- Goal Details: Patient will perform supine<>sit Independent. Goal Start Date Expected End Date End Date PT [facility] [place] 10/21/23 11/04/23 -- Goal Details: Patient will perform bed<>chair transfer Modified Independent with ww. Goal Start Date Expected End Date End Date PT [place] [facility] [place] 10/21/23 11/04/23 -- Goal Details: Patient will ambulate 350 feet Modified Independent with wheeled walker. Goal Start Date Expected End Date End Date PT [facility] [place] 10/21/23 11/04/23 -- Goal Details: Patient will ambulate up/down 1 step Modified Independent as needed to enter and exithome. Cosigned by Gustavo Swan, PT at 11/03/2023 9:04 AM CDT * Fernandez Carranza MD - 11/02/2023 1:00 PM CDT Images from the original note were not included. Nephrology Juvenal Garvin Jr. - 1970 Primary : Aditya Correa MD History and interval events: 53-year-old gentleman with history of type 1 diabetes mellitus on insulin pump, CHF, CAD, ESRD on peritoneal dialysis initially presented to [facility] in [facility] on October 09 for symptoms of general malaise for the past 4 days prior to admission. Patient was having symptoms of nausea with dry heaves. He presented hemodynamically stable. His glucose was measured to be 584, beta hydroxybutyrate 2.9 with an anion gap of 19. Patient was transferred to the ICU for insulin dripand DKA management. During this hospitalization his troponin was measured to be elevated prompting a cardiology consultation which lead to a C. Results were notable for severe CAD and he was recommended to seek surgical revascularization evaluation prompting transfer to this facility. He missed his peritoneal dialysis last evening during transfer. He has been on peritoneal dialysis for approximately 2 years and tolerating this well under the care of Dr. Reyes. He does make some urine. S/P 3v CABG and Mech AVR 10/17 Sitting in a bedside chair. PD went well lost night and he tolerated this well with initial drain of 1280 and UF of 2637 Prehospital weight 270 Medication: Current medication list reviewed Intake and Output Summary: Intake/Output Summary (Last 24 hours) at 11/02/2023 1300 Last data filed at 11/02/2023 0928 Gross per 24 hour Intake 1162 ml Output 4417 ml Net -3255 ml Vital Signs: Vitals: 11/02/23 1154 BP: 133/66 Pulse: 66 Resp: 18 Temp: 36.8 ??C (98.3 ??F) SpO2: 94% Physical Exam: General Sitting up and eating breakfast H&N ?JVP Eyes Pupils symmetrical with no scleral icterus Chest CTA Heart S1S2 reg Abdomen Soft and non tender PD catheter present Extremeties +2 lower extremity edema, erythema Neuro No tremor, awake and alert CBC: Recent Labs Lab Units 11/02/23 0216 11/01/23 02010/31/23 0225 WBC K/cumm 5.0 5.9 6.6 HEMOGLOBIN g/dL 7.5* 7.7* 7.9* HEMATOCRIT % 24.5* 25.0* 25.5* PLATELETS K/cumm 391 381 366 RFP: Recent Labs Lab Units 11/02/23 02111/01/23 02010/31/23 02210/30/23 0418 SODIUM mmol/L 128* 131* 131* 132* POTASSIUM PLASMA mmol/L 3.9 4.0 4.0 4.0 CHLORIDE mmol/L 89* 91* 91* 89* CO2 mmol/L 25 24 25 BUN SERUM mg/dL 86* 89* 90* 93* CREATININE mg/dL 8.74* 8.97* 9.34* 9.55* CALCIUM mg/dL 9.3 9.1 9.5 9.3 PHOSPHORUS PLASMA mg/dL 3.7 4.1 4.8* 5.4* ALBUMIN g/dL 2.7* 2.9* 2.7* 2.7* Impression and Recommendations: 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 Multivessel coronary artery disease with aortic stenosis s/p CABG x 3 and AVR on 10/17 Type 1 diabetes mellitus Hypertension Anemia of chronic kidney disease Hyponatremia - complicated in PD patients but improving Continue PD as CCPD - continue to use 1 x 2.5% and 1 x 4.25% Dianeal and 1 L icodextran as last fall Venous Dopplers negative for DVT Antibiotics for cellulitis Limit free water intake Oral high dose loop diuretic BID Resume oral salt tablets CORRINE PO4 binder with meals Elevated TSH with low free T4, synthroid started Fernandez Carranza MD [facility]: MD Chula Domínguez, MD Renny Flood, MD STANISLAV Camacho, MD Shanda Pederson, ROBERTO [address] [place], [place] [address] [phone] - Office [phone] - Fax * Pradeep Reeves NP - 11/02/2023 12:53 PM CDT Daily Progress SUBJECTIVE: Mr. Garvin is doing well overall. No acute complaints. OBJECTIVE: Vitals: 11/02/23 0406 11/02/23 0710 11/02/23 0806 11/02/23 1154 BP: 138/58 163/75 133/66 BP Location: Right arm Right arm Right arm Patient Position: Sitting Sitting Reclining Pulse: 73 74 66 Resp: 18 18 18 Temp: 37.4 ??C (99.4 ??F) 36.8 ??C (98.2 ??F) 36.8 ??C (98.3 ??F) TempSrc: Oral Oral Oral SpO2: 96% 93% 94% Weight: 125.5 kg (276 lb 10.8 oz) Height: Intake/Output Summary (Last 24 hours) at 11/02/2023 1253 Last data filed at 11/02/2023 0928 Gross per 24 hour Intake 1162 ml Output 4417 ml Net -3255 ml Scheduled Medications Medication Dose Route Frequency al & mag hydroxide dctrneucydu-fyhremxuqywsfbn-eeslzrgyb-nystatin (MAGIC MOUTHWASH) oral suspension 1-1-1-1 20 mL 20 mL swish & swallow Q6H amiodarone (PACERONE) tablet 200 mg 200 mg oral Daily aspirin chewable tablet 81 mg 81 mg oral Daily atorvastatin (LIPITOR) tablet 80 mg 80 mg oral Daily calcitRIOL (ROCALTROL) capsule 0.25 mcg 0.25 mcg oral Daily calcium acetate(phosphat bind) (PHOSLO) capsule 1,334 mg 1,334 mg oral TID with meals ceFAZolin (ANCEF) 1 gram/10 mL in sterile water (premix) 1,000 mg 1,000 mg intravenous Q24H ASHLEY docusate sodium (COLACE) capsule 100 mg 100 mg oral BID epoetin genia-epbx (RETACRIT) (10,000 unit/mL) injection 10,000 Units 10,000 Units subcutaneous Weekly - 2100 ezetimibe (ZETIA) tablet 10 mg 10 mg oral Daily gentamicin (GARAMYCIN) 0.1 % cream topical Daily [Held by Provider] insulin lispro (HumaLOG, ADMELOG) 100 unit/mL injection 0-10 Units 0-10 Units subcutaneous QID (with meals & nightly) [Held by Provider] insulin lispro (HumaLOG, ADMELOG) 100 unit/mL injection 4 Units 4 Units subcutaneous TID with meals [Held by Provider] insulin NPH (HumuLIN N, NovoLIN N) 100 unit/mL injection 15 Units 15 Units subcutaneous Daily [Held by Provider] insulin NPH (HumuLIN N, NovoLIN N) 100 unit/mL injection 35 Units 35 Units subcutaneous Nightly INSULIN PUMP REFILL lispro (HumaLOG, ADMELOG) solution 300 Units 300 Units other Once levothyroxine (SYNTHROID) tablet 25 mcg 25 mcg oral Daily - 0600 metoprolol tartrate (LOPRESSOR) immediate release tablet 12.5 mg 12.5 mg oral BID pantoprazole DR (PROTONIX) extended release tablet 40 mg 40 mg oral Daily polyethylene glycol (MIRALAX) packet 17 g 17 g oral Daily senna (SENOKOT) tablet 1 tablet 1 tablet oral BID sodium chloride 0.9% flush 0.5-20 mL 0.5-20 mL intra-catheter Q8H [facility] sodium chloride tablet 1 g 1 g oral BID with meals (bkfst, dinner) torsemide (DEMADEX) tablet 100 mg 100 mg oral BID DIURETIC warfarin (COUMADIN) tablet 4 mg 4 mg oral Once - 1800 LABS: Recent Labs Lab Units 11/02/23 0216 WBC K/cumm 5.0 HEMOGLOBIN g/dL 7.5* HEMATOCRIT % 24.5* PLATELETS K/cumm 391 Recent Labs Lab Units 11/02/23 1227 11/02/23 0815 11/02/23 0216 SODIUM mmol/L -- -- 128* POTASSIUM PLASMA mmol/L -- -- 3.9 CHLORIDE mmol/L -- -- 89* CO2 mmol/L -- -- 25 ANIONGAP mmol/L -- -- 14 GLUCOSE mg/dL -- -- 353* POC GLUCOSE MONITOR mg/dL 178* < > -- BUN SERUM mg/dL -- -- 86* CREATININE mg/dL -- -- 8.74* CALCIUM mg/dL -- -- 9.3 ALBUMIN g/dL -- -- 2.7* < > = values in this interval not displayed. Lab Results Component Value Date BNP 113 (H) 03/21/2017 BNP 13 11/05/2013 Lab Results Component Value Date TROPONINI 0.03 03/21/2017 TROPONINI 0.03 03/21/2017 TROPONINI <0.03 11/06/2013 Exam General: in no apparent distress Neuro: Alert and oriented x 3, moves all extremities well HEENT: normocephalic, atraumatic, thyroid not enlarged. Neck: I do not appreciate JVD. Lungs: symmetric, unlabored, clear to auscultation bilaterally Heart: S1,S2, regular rate & rhythm, no murmurs, rubs, or gallops Abdomen: obese, soft, non-tender, non-distended, bowel sounds present Extremities: 1+ BLE edema, palpable peripheral pulses BL, mild BLE erythema Neurologic: No focal deficits Skin: sternotomy healing well ASSESSMENT/PLAN: CAD - prior SC with multiple PCI - [facility] showed multivessel disease - LVEF dropped to ~25% (was 65% in 05/2022) - s/p CABG x3 and AVR on 10/17/23 with BRICE to LAD, SVG to OM, SVG to PDA -stable, will need repeat echo in ~3 months Aortic Stenosis - AVR during CABG with 25 mm OnX mechanical prosthesis - warfarin dosing per pharmacy - INR 1.68 Hypertension - controlled on current regimen Dyslipidemia - continue Atorvastatin 80 mg and Ezetimibe 10 mg DM1 - stable with management per primary team ESRD - PD Per Nephrology Paroxysmal Atrial Fibrillation - occurred in 06/2022 during hospitalization - has had intermittent arrhythmia this admission - continues PO Amiodarone - rates have been controlled throughout - he is now in sinus rhythm - continue Amiodarone and Lopressor - on Warfarin DVT - h/o RLE in 2017 - was on apixaban -> heparin -> wafarin with mechanical valve Hyponatremia - 128 today - on torsemide 100 mg BID - on fluid restriction - management per primary/nephrology team BLE swelling/redness/warmth -LLE > RLE, improving -On IV antibiotics for cellulitis. -venous doppler shows no DVT SHAMIKA Donald [facility] 11/02/2023 12:53 PM * Nusrat Us RPh - 11/02/2023 11:51 AM CDT Warfarin monitoring Lab Results Component Value Date/Time INR 1.68 (H) 11/02/2023 02:16 AM HGB 7.5 (L) 11/02/2023 02:16 AM HGB 8.1 (L) 10/17/2023 12:26 PM HCT 24.5 (L) 11/02/2023 02:16 AM HCT 30.0 (L) 06/05/2022 03:22 PM LABPLAT 391 11/02/2023 02:16 AM Warfarin dose today: 4 mg INR down from 1.81 to 1.68. Will dose higher at 4 mg today and likely tomorrow and reassess response. Acute postop goal INR 2-2.5. * Yolanda Campos PA - 11/01/2023 5:31 PM CDT Cardiothoracic Surgery Progress Note Subjective Chief Complaint: Severe multivessel coronary artery disease, moderate/severe aortic valve stenosis;s/p coronary artery bypass grafting x 3, aortic valve replacement (On-X mechanical), and sternal plating on 10/17/23 Interval History: There were no significant events overnight. He says his lower extremities are about the same. Objective VS: BP 148/58 (BP Location: Right arm, Patient Position: Sitting) Pulse 68 Temp 36.8 ??C (98.3 ??F) (Oral) Resp 20 Ht 177.8 cm (5' 10 ) Wt 124.1 kg (273 lb 9.5 oz) SpO2 99% BMI 39.26 kg/m?? 24hr Min/Max: Temp Min: 36.7 ??C (98.1 ??F) Max: 36.9 ??C (98.4 ??F) Pulse Min: 67 Max: 72 BP Min: 131/59 Max: 160/64 Resp Min: 20 Max: 22 SpO2 Min: 94 % Max: 100 % Intake/Output Summary (Last 24 hours) at 11/01/2023 1731 Last data filed at 11/01/2023 1345 Gross per 24 hour Intake 940 ml Output 3797 ml Net -2857 ml Cardiac Telemetry: sinus rhythm Physical Exam: Gen: Awake and alert, sitting up in chair. No distress Lungs: Normal effort Heart: RRR Ext: 2+ lower extremity edema, bilateral lower extremities erythematous L > R and warm to touch Skin: Sternal incision c/d/i Lab Review: Lab Results Component Value Date WBC 5.9 11/01/2023 HGB 7.7 (L) 11/01/2023 HCT 25.0 (L) 11/01/2023 LABPLAT 381 11/01/2023 SODIUM 131 (L) 11/01/2023 POTASSIUM 4.0 11/01/2023 CHLORIDE 91 (L) 11/01/2023 CO2 25 11/01/2023 ANIONGAP 15 11/01/2023 BUNSER 89 (H) 11/01/2023 CREATININE 8.97 (H) 11/01/2023 GLUCOSE 163 (H) 11/01/2023 GLUCOSE 302 (H) 11/01/2023 CALCIUM 9.1 11/01/2023 MAGNESIUM 2.5 11/01/2023 INR 1.81 (H) 11/01/2023 PT 20.6 (H) 11/01/2023 Assessment Severe multivessel coronary artery disease, moderate/severe aortic valve stenosis; s/p coronary artery bypass grafting x 3, aortic valve replacement (On- X mechanical), and sternal plating on 10/17/23 Acute on chronic systolic heart failure Hypertension Hyperlipidemia Type 1 diabetes mellitus ESRD on peritoneal dialysis Paroxysmal atrial fibrillation Sleep apnea Obesity GERD Acute blood loss anemia due to surgery Hyponatremia Left lower extremity cellulitis Plan ASA + Warfarin for anticoagulation, INR 1.81 today Metoprolol 12.5 mg BID for beta-umair therapy Amiodarone 200 mg daily for anti-arrhythmic therapy Atorvastatin and Ezetimibe for lipid lowering therapy Torsemide 100 mg BID for diuresis, peritoneal dialysis nightly, Nephrology managing Continue Phoslo, Calcitriol, and Retacrit weekly Home insulin pump for glucose control, Endocrinology following Continue Ancef and Vancomycin for left lower extremity cellulitis [place] prn for pain control CPAP nightly Stress ulcer prophylaxis: Protonix DVT prophylaxis: coumadin dosing PT/OT Plan reviewed with LESLY Pantoja 11/01/2023 * Fernandez Carranza MD - 11/01/2023 3:39 PM CDT Images from the original note were not included. Nephrology Juvenal Garvin Jr. - 1970 Primary : Aditya Correa MD History and interval events: 53-year-old gentleman with history of type 1 diabetes mellitus on insulin pump, CHF, CAD, ESRD on peritoneal dialysis initially presented to [facility] in [facility] on October 09 for symptoms of general malaise for the past 4 days prior to admission. Patient was having symptoms of nausea with dry heaves. He presented hemodynamically stable. His glucose was measured to be 584, beta hydroxybutyrate 2.9 with an anion gap of 19. Patient was transferred to the ICU for insulin dripand DKA management. During this hospitalization his troponin was measured to be elevated prompting a cardiology consultation which lead to a [facility]. Results were notable for severe CAD and he was recommended to seek surgical revascularization evaluation prompting transfer to this facility. He missed his peritoneal dialysis last evening during transfer. He has been on peritoneal dialysis for approximately 2 years and tolerating this well under the care of Dr. Reyes. He does make some urine. S/P 3v CABG and Mech AVR 10/17 Sitting in a bedside chair. PD went well lost night and he tolerated this well with initial drain of 1345 and UF of 2452 Prehospital weight 270 Current weight 273 Medication: Current medication list reviewed Intake and Output Summary: Intake/Output Summary (Last 24 hours) at 11/01/2023 1539 Last data filed at 11/01/2023 1345 Gross per 24 hour Intake 940 ml Output 3797 ml Net -2857 ml Vital Signs: Vitals: 11/01/23 1237 BP: 131/59 Pulse: Resp: 22 Temp: 36.8 ??C (98.3 ??F) SpO2: 98% Physical Exam: General Sitting up and eating breakfast H&N ?JVP Eyes Pupils symmetrical with no scleral icterus Chest CTA Heart S1S2 reg Abdomen Soft and non tender PD catheter present Extremeties +2 lower extremity edema, erythema Neuro No tremor, awake and alert CBC: Recent Labs Lab Units 11/01/2320810/31/2322410/30/23417 WBC K/cumm 5.9 6.6 6.5 HEMOGLOBIN g/dL 7.7* 7.9* 7.6* HEMATOCRIT % 25.0* 25.5* 24.3* PLATELETS K/cumm 381 366 317 RFP: Recent Labs Lab Units 11/01/23 02010/31/2322410/30/2341710/29/23 0404 SODIUM mmol/L 131* 131* 132* 129* POTASSIUM PLASMA mmol/L 4.0 4.0 4.0 4.1 CHLORIDE mmol/L 91* 91* 89* 87* CO2 mmol/L 23 BUN SERUM mg/dL 89* 90* 93* 85* CREATININE mg/dL 8.97* 9.34* 9.55* 9.66* CALCIUM mg/dL 9.1 9.5 9.3 9.5 PHOSPHORUS PLASMA mg/dL 4.1 4.8* 5.4* 5.8* ALBUMIN g/dL 2.9* 2.7* 2.7* 2.9* Impression and Recommendations: 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 Multivessel coronary artery disease with aortic stenosis s/p CABG x 3 and AVR on 10/17 Type 1 diabetes mellitus Hypertension Anemia of chronic kidney disease Hyponatremia - complicated in PD patients but improving Continue PD as CCPD - continue to use 1 x 2.5% and 1 x 4.25% Dianeal and 1 L icodextran as last fall Venous Dopplers negative for DVT Antibiotics for cellulitis Limit free water intake Oral high dose loop diuretic BID Resume oral salt tablets CORRINE PO4 binder with meals Elevated TSH with low free T4, synthroid started Fernandez Carranza MD [facility]: MD Chula Domínguez, MD Renny Flood PA Derek Larson, MD FASN Rose Mattli, MD Shanda Pederson, ROBERTO [address] - [address] [place] [address] [phone] - Office [phone] - Fax * Sophia Peoples COTA - 11/01/2023 2:12 PM CDT Occupational Therapy 11/01/23 1412 General Session Type Treatment OT Received On 11/01/23 Safe Environment Arm band checked;Patient found sitting in chair;Gait belt utilized for all out of bed mobility Subjective Agreeable to Therapy Subjective Comment My partial in my teeth came off and that made me crabby Family/Caregiver Present No Precautions Precautions Cardiac sternal;Fall risk Pain Assessment Pain Assessment No/denies pain Clinical Progression Not changed Grooming Grooming: Where assessed Standing at sink Grooming: Level of assistance Standby Assist Grooming: Assistance with Teeth care LE Dressing LE Dressing: Where assessed Chair LE Dressing: Level of assistance Standby Assist LE Dressing: Assistance with Don/doff R sock;Don/doff L sock Toileting Toileting: Where assessed Toilet Toileting: Level of assistance Standby Assist Toileting: Assistance with Safety Transfer 1 Transfer Type 1 To and from Transfer to 1 Sit;Stand Transfer Device 1 Wheeled walker Transfer Level of Assistance 1 Standby Assist Additional Activities Additional Activities Comments To simulate home functional mobility and to increase endurance ans strength needed for ADLs and IADLs pt ambulated within room and hallways approx 360' with WW SBA Activity Tolerance Endurance Tolerates 30 min activity with multiple rests Other Comments Comments vitals pre activity BP 137/62, HR 63, SpO2 99 Assessment Prognosis Good Problem List Decreased upper extremity strength;Decreased endurance;Decreased balance;Decreased ADLindependence;Decreased IADL independence Barriers to Discharge Current ADL Status;Current Mobility Status Plan Plan Continue with current plan;If this is the last note, consider this the discharge summary Recommendation/Plan OT Recommendation (S) Home with intermittent assist;Home with family OT Frequency during current admission 3-5x/wk Treatment/Interventions during current admission ADL/IADL retraining;Balance Training;Endurance training;Functional activity;Functional mobility training;Functional transfer training;Parent/caregivertraining and education;Strengthening;Therapeutic activity;Therapeutic exercise OT Equipment Recommended Transfer tub bench Progress during current admission Progressing toward goals Multi-Disciplinary Problems (from Occupational Therapy) Active Problems Problem: OT Misc Start Date: 10/19/23 Goal Start Date Expected End Date End Date OT LTG 1 Pt will complete UE/LE dressing modified independent. 10/19/23 11/02/23 -- Goal Start Date Expected End Date End Date OT LTG 2 Pt will complete bathing with transfer modified independent. 10/19/23 11/02/23 -- Goal Start Date Expected End Date End Date OT LTG 3 Pt will complete toileting with transfer modified independent. 10/19/23 11/02/23 -- Goal Start Date Expected End Date End Date OT LTG 4 Pt will complete grooming at sink modified independent. 10/19/23 11/02/23 -- Goal Start Date Expected End Date End Date OT LTG 5 Pt will adhere to sternal precautions while completing transfers, mobility, and ADL tasks.10/19/23 11/02/23 -- Education: Patient has been educated on the role of OT, safety, precautions, ADL training, mobilitytraining, home exercise program, body mechanics, energy conservation, and use of adaptive equipment/DME. Education completed via verbal instruction and return demonstration. Patient verbalized understanding Cosigned by Suzie Aiken OT at 11/01/2023 2:52 PM CDT * Nusrat Us RPh - 11/01/2023 10:22 AM CDT Pharmacy Vancomycin Monitoring: Day 2 Current Regimen: 1500 mg intermittent dosing (PD) Estimated Creatinine Clearance: 9.6 mL/min (A) (by Cockcroft-Gault based on SCr of 8.97 mg/dL (H)). Plan: Random level today is 17.3. Will re-dose 1500 mg tomorrow. Pharmacy will continue to follow the patient???s regimen and clinical progress daily. * Patrick Almonte MD - 11/01/2023 9:50 AM CDT Daily Progress SUBJECTIVE: Mr. Garvin lying in bed. He states that he is feeling well overall. He says that one of his teethon his permanent denture broke after biting into an tajik muffin. Incisional pain is well controlled. OBJECTIVE: Vitals: 11/01/23 0500 11/01/23 0745 11/01/23 0806 11/01/23 0900 BP: 137/67 155/81 BP Location: Right arm Left arm Patient Position: Lying;Sitting Pulse: 67 68 Resp: 20 Temp: 36.9 ??C (98.4 ??F) 36.7 ??C (98.1 ??F) TempSrc: Oral SpO2: 96% 97% Weight: 124.1 kg (273 lb 9.5 oz) Height: Intake/Output Summary (Last 24 hours) at 11/01/2023 1022 Last data filed at 11/01/2023 0915 Gross per 24 hour Intake 720 ml Output 3797 ml Net -3077 ml Scheduled Medications Medication Dose Route Frequency al & mag hydroxide fcuzeffnulz-yztouytuqgdfyvo-lqmnnjqpw-nystatin (MAGIC MOUTHWASH) oral suspension 1-1-1-1 20 mL 20 mL swish & swallow Q6H amiodarone (PACERONE) tablet 200 mg 200 mg oral Daily aspirin chewable tablet 81 mg 81 mg oral Daily atorvastatin (LIPITOR) tablet 80 mg 80 mg oral Daily calcitRIOL (ROCALTROL) capsule 0.25 mcg 0.25 mcg oral Daily calcium acetate(phosphat bind) (PHOSLO) capsule 1,334 mg 1,334 mg oral TID with meals ceFAZolin (ANCEF) 1 gram/10 mL in sterile water (premix) 1,000 mg 1,000 mg intravenous Q24H ASHLEY docusate sodium (COLACE) capsule 100 mg 100 mg oral BID epoetin genia-epbx (RETACRIT) (10,000 unit/mL) injection 10,000 Units 10,000 Units subcutaneous Weekly - 2100 ezetimibe (ZETIA) tablet 10 mg 10 mg oral Daily gentamicin (GARAMYCIN) 0.1 % cream topical Daily [Held by Provider] insulin lispro (HumaLOG, ADMELOG) 100 unit/mL injection 0-10 Units 0-10 Units subcutaneous QID (with meals & nightly) [Held by Provider] insulin lispro (HumaLOG, ADMELOG) 100 unit/mL injection 4 Units 4 Units subcutaneous TID with meals [Held by Provider] insulin NPH (HumuLIN N, NovoLIN N) 100 unit/mL injection 15 Units 15 Units subcutaneous Daily [Held by Provider] insulin NPH (HumuLIN N, NovoLIN N) 100 unit/mL injection 35 Units 35 Units subcutaneous Nightly levothyroxine (SYNTHROID) tablet 25 mcg 25 mcg oral Daily - 0600 metoprolol tartrate (LOPRESSOR) immediate release tablet 12.5 mg 12.5 mg oral BID pantoprazole DR (PROTONIX) extended release tablet 40 mg 40 mg oral Daily polyethylene glycol (MIRALAX) packet 17 g 17 g oral Daily senna (SENOKOT) tablet 1 tablet 1 tablet oral BID sodium chloride 0.9% flush 0.5-20 mL 0.5-20 mL intra-catheter Q8H [facility] sodium chloride tablet 1 g 1 g oral BID with meals (bkfst, dinner) torsemide (DEMADEX) tablet 100 mg 100 mg oral BID DIURETIC [START ON 11/02/2023] vancomycin 1500 mg/250 mL in sodium chloride 0.9% (premix) 1,500 mg 1,500 mg intravenous Once warfarin (COUMADIN) tablet 2.5 mg 2.5 mg oral Once - 1800 LABS: Recent Labs Lab Units 11/01/23 0209 WBC K/cumm 5.9 HEMOGLOBIN g/dL 7.7* HEMATOCRIT % 25.0* PLATELETS K/cumm 381 Recent Labs Lab Units 11/01/23 0827 11/01/23 0209 SODIUM mmol/L -- 131* POTASSIUM PLASMA mmol/L -- 4.0 CHLORIDE mmol/L -- 91* CO2 mmol/L -- 25 ANIONGAP mmol/L -- 15 GLUCOSE mg/dL -- 302* POC GLUCOSE MONITOR mg/dL 246* -- BUN SERUM mg/dL -- 89* CREATININE mg/dL -- 8.97* CALCIUM mg/dL -- 9.1 ALBUMIN g/dL -- 2.9* Lab Results Component Value Date BNP 113 (H) 03/21/2017 BNP 13 11/05/2013 Lab Results Component Value Date TROPONINI 0.03 03/21/2017 TROPONINI 0.03 03/21/2017 TROPONINI <0.03 11/06/2013 Exam General: in no apparent distress Neuro: Alert and oriented x 3, moves all extremities well HEENT: normocephalic, atraumatic, thyroid not enlarged. Neck: I do not appreciate JVD. Lungs: symmetric, unlabored, clear to auscultation bilaterally Heart: S1,S2, regular rate & rhythm, no murmurs, rubs, or gallops Abdomen: obese, soft, non-tender, non-distended, bowel sounds present Extremities: 1+ BLE edema, palpable peripheral pulses BL, mild BLE erythema Neurologic: No focal deficits Skin: sternotomy healing well ASSESSMENT/PLAN: CAD - prior SC with multiple PCI - [facility] showed multivessel disease - LVEF dropped to ~25% (was 65% in 05/2022) - s/p CABG x3 and AVR on 10/17/23 with BRICE to LAD, SVG to OM, SVG to PDA -stable, will need repeat echo in ~3 months Aortic Stenosis - AVR during CABG with 25 mm OnX mechanical prosthesis - warfarin dosing per pharmacy - INR 1.81 today Hypertension - controlled on current regimen Dyslipidemia - continue Atorvastatin 80 mg and Ezetimibe 10 mg DM1 - stable with management per primary team ESRD - PD Per Nephrology Paroxysmal Atrial Fibrillation - occurred in 06/2022 during hospitalization - has had intermittent arrhythmia this admission - continues PO Amiodarone - rates have been controlled throughout - he is now in sinus rhythm - continue Amiodarone and Lopressor -s/p Heparin gtt to Warfarin bridge, today INR 1.81 DVT - h/o RLE in 2017 - was on apixaban -> heparin -> wafarin with mechanical valve -INR 1.81 today Hyponatremia - today 131 - on torsemide 100 mg BID - on fluid restriction - management per primary/nephrology team BLE swelling/redness/warmth -LLE > RLE, improving -On IV antibiotics for cellulitis. -venous doppler shows no DVT SHAMIKA Donald [facility] 11/01/2023 10:22 AM Agree with above note Feels better No chest pain BP stable S/P CABG, AVR ONX Om heparin and warfarin In sinus rhythm On antibiotics for cellulitis Patrick Almonte MD, FACC * Nusrat Us, [facility] - 11/01/2023 9:40 AM CDT Warfarin monitoring Lab Results Component Value Date/Time INR 1.81 (H) 11/01/2023 02:09 AM HGB 7.7 (L) 11/01/2023 02:09 AM HGB 8.1 (L) 10/17/2023 12:26 PM HCT 25.0 (L) 11/01/2023 02:09 AM HCT 30.0 (L) 06/05/2022 03:22 PM LABPLAT 381 11/01/2023 02:09 AM Warfarin dose today: 2.5 mg Patient's INR lateral from yesterday. Lower doses of 1.5 and 1 mg likely contribute to this, but encouraging that INR did not go down. Will increase to 2.5 mg today and continue to monitor. * Guerline Rodriguez PA - 10/31/2023 4:54 PM CDT Cardiothoracic Surgery Progress Note Subjective Chief Complaint: Severe multivessel coronary artery disease, moderate/severe aortic valve stenosis;s/p coronary artery bypass grafting x 3, aortic valve replacement (On-X mechanical), and sternal plating on 10/17/23 Interval History: There were no significant events overnight. He has been trying to ambulate more today. He remains on room air. His lower extremities remain edematous and somewhat painful. Objective VS: BP 138/69 (BP Location: Right arm, Patient Position: Sitting) Pulse 69 Temp 36.9 ??C (98.4 ??F) (Oral) Resp 22 Ht 177.8 cm (5' 10 ) Wt 124.9 kg (275 lb 5.7 oz) SpO2 96% BMI 39.51 kg/m?? 24hr Min/Max: Temp Min: 36.8 ??C (98.2 ??F) Max: 37.2 ??C (99 ??F) Pulse Min: 60 Max: 73 BP Min: 130/63 Max: 144/65 Resp Min: 18 Max: 22 SpO2 Min: 93 % Max: 99 % Intake/Output Summary (Last 24 hours) at 10/31/2023 1654 Last data filed at 10/31/2023 0830 Gross per 24 hour Intake 440 ml Output 3732 ml Net -3292 ml Cardiac Telemetry: sinus rhythm Physical Exam: Gen: A&O, NAD Lungs: Diminished breath sounds Heart: RRR Ext: Warm, 2+ lower extremity edema, bilateral lower extremities erythematous L > R and warm to touch Skin: Sternal incision c/d/i Lab Review: Lab Results Component Value Date WBC 6.6 10/31/2023 HGB 7.9 (L) 10/31/2023 HCT 25.5 (L) 10/31/2023 LABPLAT 366 10/31/2023 SODIUM 131 (L) 10/31/2023 POTASSIUM 4.0 10/31/2023 CHLORIDE 91 (L) 10/31/2023 CO2 24 10/31/2023 ANIONGAP 16 (H) 10/31/2023 BUNSER 90 (H) 10/31/2023 CREATININE 9.34 (H) 10/31/2023 GLUCOSE 231 (H) 10/31/2023 GLUCOSE 275 (H) 10/31/2023 CALCIUM 9.5 10/31/2023 MAGNESIUM 2.5 10/31/2023 INR 1.81 (H) 10/31/2023 PT 20.6 (H) 10/31/2023 Assessment Severe multivessel coronary artery disease, moderate/severe aortic valve stenosis; s/p coronary artery bypass grafting x 3, aortic valve replacement (On- X mechanical), and sternal plating on 10/17/23 Acute on chronic systolic heart failure Hypertension Hyperlipidemia Type 1 diabetes mellitus ESRD on peritoneal dialysis Paroxysmal atrial fibrillation Sleep apnea Obesity GERD Acute blood loss anemia due to surgery Hyponatremia Left lower extremity cellulitis Plan ASA + Warfarin for anticoagulation, INR 1.8 today Metoprolol 12.5 mg BID for beta-umair therapy Amiodarone 200 mg BID for anti-arrhythmic therapy Atorvastatin and Ezetimibe for lipid lowering therapy Torsemide 100 mg BID for diuresis, peritoneal dialysis nightly, Nephrology managing Continue Phoslo, Calcitriol, and Retacrit weekly Home insulin pump for glucose control, Endocrinology following Continue Ancef and add Vancomycin for left lower extremity cellulitis [place] prn for pain control CPAP nightly Encouraged incentive spirometer use and increased activity Stress ulcer prophylaxis: Protonix DVT prophylaxis: INR therapeutic PT/O Plan reviewed with LESLY Larose 10/31/2023 * Suzie Aiken, OT - 10/31/2023 11:08 AM CDT Occupational Therapy 10/31/23 1108 General Session Type Treatment OT Received On 10/31/23 Safe Environment Arm band checked;Patient found sitting in chair;Gait belt utilized for all out of bed mobility Subjective Agreeable to Therapy Subjective Comment Pt is pleasant and appropriate throughout session. Reports feeling pretty good at this time and is motivated to participate Family/Caregiver Present No Precautions Precautions Cardiac sternal;Fall risk Precaution Comments Pt verbally recalls 4/4 sternal precautions from memory. OT reviews all precautions with pt as well as educating pt on UB/LB dressing techniques, energy conservation techniques, and importance/benefits of shower chair use for bathing routine at d/c Pain Assessment Pain Assessment 0-10 Pain Score 0 - No pain Clinical Progression Not changed Grooming Grooming: Where assessed Standing at sink Grooming: Level of assistance Standby Assist Grooming: Assistance with Wash/dry hands LE Dressing LE Dressing: Where assessed Chair LE Dressing: Level of assistance Standby Assist LE Dressing: Assistance with Don/doff R sock;Don/doff L sock (Pt completed in figure 4 position) Toileting Toileting: Where assessed Toilet Toileting: Level of assistance Standby Assist Toileting: Assistance with Perineal hygiene Transfers 2 Trials/Comments 2 Pt completed sit<>stand transfer from recliner and toilet with SBA for safety. WW used for stability upon standing. Verbal cues for sternal precautions due to pt attempting topush from recliner/pull from grab bar around toilet Cognition Overall Cognitive Status WFL Arousal/Alertness Alert;Appropriate responses to stimuli Attention Span Appears intact Memory Appears intact Current communication Appears Intact Orientation Oriented X4 (person, place, time, situation) Following Commands Follows all commands and directions without difficulty Compliance/Behavior Easy to engage Additional Activities Additional Activities Comments Pt completes functional mobility within room using WW and SBA for safety. No LOB noted. COmpleted to simulate household distances Activity Tolerance Activity Tolerance Comments BP 130/60, HR 73, O2 97% on room air. Pt denies lightheadedness or dizziness throughout session Other Comments Comments Pt educated on differences between tub transfer bench and shower chair and benefits of both. OT additionally educated pt on energy conservation techniques and reference cardiac packet for additional education/visual reinforcement Safe Environment End of Therapy Session Safe Environment End of Therapy Session Patient left in recliner;RN notified;Call light within reach;Overbed table within reach Assessment Prognosis Good Problem List Decreased endurance;Decreased balance;Decreased functional mobility;Decreased ADL independence;Decreased IADL independence Barriers to Discharge Current ADL Status;Current Mobility Status Plan Plan Continue with current plan;If this is the last note, consider this the discharge summary Recommendation/Plan OT Recommendation (S) Home with intermittent assist;Home with family OT Frequency during current admission 3-5x/wk Treatment/Interventions during current admission ADL/IADL retraining;Balance Training;Endurance training;Functional activity;Functional mobility training;Functional transfer training;Parent/caregivertraining and education;Strengthening;Therapeutic activity;Therapeutic exercise Progress during current admission Progressing toward goals OT Evaluation Complete Yes Multi-Disciplinary Problems (from Occupational Therapy) Active Problems Problem: OT Misc Start Date: 10/19/23 Goal Start Date Expected End Date End Date OT LTG 1 Pt will complete UE/LE dressing modified independent. 10/19/23 11/02/23 -- Goal Start Date Expected End Date End Date OT LTG 2 Pt will complete bathing with transfer modified independent. 10/19/23 11/02/23 -- Goal Start Date Expected End Date End Date OT LTG 3 Pt will complete toileting with transfer modified independent. 10/19/23 11/02/23 -- Goal Start Date Expected End Date End Date OT LTG 4 Pt will complete grooming at sink modified independent. 10/19/23 11/02/23 -- Goal Start Date Expected End Date End Date OT LTG 5 Pt will adhere to sternal precautions while completing transfers, mobility, and ADL tasks.10/19/23 11/02/23 -- Education: Patient has been educated on the role of OT, safety, precautions, ADL training, mobilitytraining, body mechanics, and use of adaptive equipment/DME. Education completed via verbal instruction, return demonstration, and handouts. Patient verbalized understanding, demonstrated understanding, and needs ongoing reinforcement * Fernandez Carranza MD - 10/31/2023 10:48 AM CDT Images from the original note were not included. Nephrology Juvenal Garvin Jr. - 1970 Primary : Aditya Correa MD History and interval events: 53-year-old gentleman with history of type 1 diabetes mellitus on insulin pump, CHF, CAD, ESRD on peritoneal dialysis initially presented to [facility] in [facility] on October 09 for symptoms of general malaise for the past 4 days prior to admission. Patient was having symptoms of nausea with dry heaves. He presented hemodynamically stable. His glucose was measured to be 584, beta hydroxybutyrate 2.9 with an anion gap of 19. Patient was transferred to the ICU for insulin dripand DKA management. During this hospitalization his troponin was measured to be elevated prompting a cardiology consultation which lead to a C. Results were notable for severe CAD and he was recommended to seek surgical revascularization evaluation prompting transfer to this facility. He missed his peritoneal dialysis last evening during transfer. He has been on peritoneal dialysis for approximately 2 years and tolerating this well under the care of Dr. Reyes. He does make some urine. S/P 3v CABG and Mech AVR 10/17 Sitting in a bedside chair. PD went well lost night and he tolerated this well with initial drain of 2000 and UF of 3530 Medication: Current medication list reviewed Intake and Output Summary: Intake/Output Summary (Last 24 hours) at 10/31/2023 1048 Last data filed at 10/31/2023 0830 Gross per 24 hour Intake 240 ml Output 3732 ml Net -3492 ml Vital Signs: Vitals: 10/31/23 0803 BP: 132/56 Pulse: 69 Resp: 18 Temp: 36.9 ??C (98.4 ??F) SpO2: 93% Physical Exam: General Sitting up and eating breakfast H&N ?JVP Eyes Pupils symmetrical with no scleral icterus Chest CTA Heart S1S2 reg Abdomen Soft and non tender PD catheter present Extremeties +2 lower extremity edema, erythema Neuro No tremor, awake and alert CBC: Recent Labs Lab Units 10/31/2322410/30/2341710/29/23 0404 WBC K/cumm 6.6 6.5 7.0 HEMOGLOBIN g/dL 7.9* 7.6* 7.9* HEMATOCRIT % 25.5* 24.3* 25.2* PLATELETS K/cumm 366 317 291 RFP: Recent Labs Lab Units 10/31/2322410/30/238 10/29/23 0404 10/28/23 0034 SODIUM mmol/L 131* 132* 129* 128* POTASSIUM PLASMA mmol/L 4.0 4.0 4.1 4.4 CHLORIDE mmol/L 91* 89* 87* 87* CO2 mmol/L 24 25 23 22 BUN SERUM mg/dL 90* 93* 85* 90* CREATININE mg/dL 9.34* 9.55* 9.66* 9.98* CALCIUM mg/dL 9.5 9.3 9.5 8.9 PHOSPHORUS PLASMA mg/dL 4.8* 5.4* 5.8* 6.3* ALBUMIN g/dL 2.7* 2.7* 2.9* 2.9* Impression and Recommendations: 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 Multivessel coronary artery disease with aortic stenosis s/p CABG x 3 and AVR on 10/17 Type 1 diabetes mellitus Hypertension Anemia of chronic kidney disease Hyponatremia - complicated in PD patients but improving Continue PD as CCPD - continue to use 1 x 2.5% and 1 x 4.25% Dianeal and 1 L icodextran as last fall Venous Dopplers negative for DVT Antibiotics for cellulitis Limit free water intake Oral high dose loop diuretic BID Resume oral salt tablets CORRINE PO4 binder with meals Elevated TSH with low free T4, synthroid started Fernandez Carranza MD [facility]: MD Chula Domínguez, MD Renny Flood PA Derek Larson, MD FASN Rose Mattli, MD Shanda Pederson, ROBERTO [address] - [address] [place], [place] [address] [phone] Office [phone] - Fax * Nida Starr, FREIGHT AND PASSENGER AGENT - 10/31/2023 10:20 AM CDT Physical Therapy 10/31/23 1020 PT Last Visit Session Type Treatment PT Received On 10/31/23 Safe Environment Arm band checked;Patient found sitting in chair;Session completed bedside;Gait belt utilized for all out of bed mobility Subjective Agreeable to Therapy Subjective Comment Pt reports he did not sleep well last night Family/Caregiver Present No Precautions Precautions Cardiac sternal;Fall risk Precaution Comments Pt recalls 3/4 sternal precautions. Verbally reviewed 4/4 precautions with pt. Activity Tolerance Activity Tolerance Comments pre-activity vitals: BP: 129/58, HR: 69bpm, O2 sats: 95% on room air. Post activity vitals: BP: 154/57, HR: 75bpm, O2 sats: 98% on room air. Pain Assessment Pain Assessment 0-10 Pain Score 0 - No pain Clinical Progression Not changed (0/10) Cognition Overall Cognitive Status WFL Orientation Oriented X4 (person, place, time, situation) Compliance/Behavior Easy to engage Dynamic Standing Balance Dynamic Standing-Balance Support Bilateral upper extremity supported (WW) Dynamic Standing-Standing Surface Floor Dynamic Standing-Level of Assistance Close supervision Dynamic Standing-Comments Standing balance with BLE exercises Standing Standing-Exercises Lower extremity Standing-Exercise Type Hip flexion;Marching;Heel raises;ABduction;ADduction Reps/Sets 10 Standing-Motion AROM Standing-Exercise Comments 1 seated rest break during exercises following 3 exercises and then increased fatigue after last exercises requiring sitting rests break. Transfer 1 Transfer From 1 Sit;Chair with arms Transfer Type 1 To and from Transfer to 1 Stand Transfer Device 1 Wheeled walker Transfer Level of Assistance 1 Standby Assist Ambulation 1 Distance (ft) 1 240' Surface 1 Level tile Device 1 Wheeled walker Assistance 1 Standby Assist Gait Deviations 1 Base of support - increased;Hip/knee flexion during swing phase - decreased;Posture - flexed;Step length - decreased Ambulation Comments 1 Pt requires no rest break during walk and activity tolerance is improving Stairs Stairs No (pt reports having no steps nor curb at home) Other Comments Other PT Comments Pt tolerated treatment well this date. Pt with improving functional mobility and transfers with decreased assist and improved activity tolerance. Safe Environment End of Therapy Session Safe Environment End of Therapy Session Patient left in recliner;RN notified;Call light within reach;Overbed table within reach (no chair alarm in use at this time) Assessment Prognosis Good Problem List Gait deviations;Decreased strength;Decreased range of motion;Decreased endurance;Impaired balance;Decreased mobility Barriers to Discharge Current Mobility Status Plan Plan If this is the last note, consider this the discharge summary;Alter current plan Recommendation/Plan PT Recommendation/Plan (S) Home with family;Home with intermittent assist (Updated d/c recommendation after speaking with Suzie Aiken OT and Kamryn Mendez, PT) PT Frequency during current admission 3-5x/wk Treatment/Interventions during current admission Balance Training;Bed mobility;Compensatory technique education;Endurance training;Functional activity;Functional transfer training;Gait training;Therapeutic activity;Therapeutic exercise;Transfer training PT Equipment Recommended Wheeled walker (pending progress) Progress during current admission Progressing toward goals Education: Patient has been educated on the safety , precautions, and mobility training. Education completed via explanation and demonstration. Patient verbalized understanding and demonstrated understanding Multi-Disciplinary Problems (from Physical Therapy) Active Problems Problem: PT Misc Start Date: 10/21/23 Goal Start Date Expected End Date End Date PT [facility] 1 10/21/23 11/04/23 -- Goal Details: Patient will perform supine<>sit Independent. Goal Start Date Expected End Date End Date PT [facility] 2 10/21/23 11/04/23 -- Goal Details: Patient will perform bed<>chair transfer Modified Independent with ww. Goal Start Date Expected End Date End Date PT [facility] 3 10/21/23 11/04/23 -- Goal Details: Patient will ambulate 350 feet Modified Independent with wheeled walker. Goal Start Date Expected End Date End Date PT [facility] 4 10/21/23 11/04/23 -- Goal Details: Patient will ambulate up/down 1 step Modified Independent as needed to enter and exithome. Cosigned by Kamryn Mendez, PT at 10/31/2023 2:01 PM CDT * Nusrat Us RPh - 10/31/2023 10:02 AM CDT Warfarin monitoring Lab Results Component Value Date/Time INR 1.81 (H) 10/31/2023 02:25 AM HGB 7.9 (L) 10/31/2023 02:25 AM HGB 8.1 (L) 10/17/2023 12:26 PM HCT 25.5 (L) 10/31/2023 02:25 AM HCT 30.0 (L) 06/05/2022 03:22 PM LABPLAT 366 10/31/2023 02:25 AM Warfarin dose today: 2 mg INR decreased from 2 to 1.81. Expect INR will increase tomorrow. Will repeat dose of 2 mg. Continueto monitor INR. * Emiliana Dickson, SENIOR CAREGIVER - 10/31/2023 8:40 AM CDT Daily Progress SUBJECTIVE: Mr. Garvin sitting up in the chair. Denies chest pain, sob, palpitations, dizziness. OBJECTIVE: Vitals: 10/30/23 2212 10/31/23 0059 10/31/23 0433 10/31/23 0803 BP: 144/65 137/63 132/56 BP Location: Right arm Right arm Right arm Patient Position: Sitting Pulse: 65 60 66 69 Resp: 20 18 Temp: 37.1 ??C (98.7 ??F) 36.9 ??C (98.4 ??F) TempSrc: Oral SpO2: 95% 99% 93% Weight: Height: Intake/Output Summary (Last 24 hours) at 10/31/2023 0840 Last data filed at 10/30/2023 2130 Gross per 24 hour Intake 240 ml Output -- Net 240 ml Scheduled Medications Medication Dose Route Frequency al & mag hydroxide jspdpcaeoao-ryxuyeelzatqwqv-kchnnskbh-nystatin (MAGIC MOUTHWASH) oral suspension 1-1-1-1 20 mL 20 mL swish & swallow Q6H amiodarone (PACERONE) tablet 200 mg 200 mg oral Daily aspirin chewable tablet 81 mg 81 mg oral Daily atorvastatin (LIPITOR) tablet 80 mg 80 mg oral Daily calcitRIOL (ROCALTROL) capsule 0.25 mcg 0.25 mcg oral Daily calcium acetate(phosphat bind) (PHOSLO) capsule 1,334 mg 1,334 mg oral TID with meals ceFAZolin (ANCEF) 1 gram/10 mL in sterile water (premix) 1,000 mg 1,000 mg intravenous Q24H ASHLEY docusate sodium (COLACE) capsule 100 mg 100 mg oral BID epoetin genia-epbx (RETACRIT) (10,000 unit/mL) injection 10,000 Units 10,000 Units subcutaneous Weekly - 2100 ezetimibe (ZETIA) tablet 10 mg 10 mg oral Daily gentamicin (GARAMYCIN) 0.1 % cream topical Daily [Held by Provider] insulin lispro (HumaLOG, ADMELOG) 100 unit/mL injection 0-10 Units 0-10 Units subcutaneous QID (with meals & nightly) [Held by Provider] insulin lispro (HumaLOG, ADMELOG) 100 unit/mL injection 4 Units 4 Units subcutaneous TID with meals [Held by Provider] insulin NPH (HumuLIN N, NovoLIN N) 100 unit/mL injection 15 Units 15 Units subcutaneous Daily [Held by Provider] insulin NPH (HumuLIN N, NovoLIN N) 100 unit/mL injection 35 Units 35 Units subcutaneous Nightly levothyroxine (SYNTHROID) tablet 25 mcg 25 mcg oral Daily - 0600 metoprolol tartrate (LOPRESSOR) immediate release tablet 12.5 mg 12.5 mg oral BID pantoprazole DR (PROTONIX) extended release tablet 40 mg 40 mg oral Daily polyethylene glycol (MIRALAX) packet 17 g 17 g oral Daily senna (SENOKOT) tablet 1 tablet 1 tablet oral BID sodium chloride 0.9% flush 0.5-20 mL 0.5-20 mL intra-catheter Q8H ASHLEY [Held by Provider] sodium chloride tablet 1 g 1 g oral TID with meals torsemide (DEMADEX) tablet 100 mg 100 mg oral BID DIURETIC vancomycin 1500 mg/250 mL in sodium chloride 0.9% (premix) 1,500 mg 1,500 mg intravenous Once LABS: Recent Labs Lab Units 10/31/23 0225 WBC K/cumm 6.6 HEMOGLOBIN g/dL 7.9* HEMATOCRIT % 25.5* PLATELETS K/cumm 366 Recent Labs Lab Units 10/31/23 0806 10/31/23 0225 SODIUM mmol/L -- 131* POTASSIUM PLASMA mmol/L -- 4.0 CHLORIDE mmol/L -- 91* CO2 mmol/L -- 24 ANIONGAP mmol/L -- 16* GLUCOSE mg/dL -- 275* POC GLUCOSE MONITOR mg/dL 338* -- BUN SERUM mg/dL -- 90* CREATININE mg/dL -- 9.34* CALCIUM mg/dL -- 9.5 ALBUMIN g/dL -- 2.7* Lab Results Component Value Date BNP 113 (H) 03/21/2017 BNP 13 11/05/2013 Lab Results Component Value Date TROPONINI 0.03 03/21/2017 TROPONINI 0.03 03/21/2017 TROPONINI <0.03 11/06/2013 Exam General: in no apparent distress Neuro: Alert and oriented x 3, moves all extremities well HEENT: normocephalic, atraumatic, thyroid not enlarged. Neck: I do not appreciate JVD. Lungs: symmetric, unlabored, clear to auscultation bilaterally Heart: S1,S2, regular rate & rhythm, no murmurs, rubs, or gallops Abdomen: obese, soft, non-tender, non-distended, bowel sounds present Extremities: 1-2+ BLE edema, palpable peripheral pulses BL, BLE with redness and warmth, weeping with blisters LLE Neurologic: No focal deficits Skin: sternotomy healing well ASSESSMENT/PLAN: CAD - prior SC with multiple PCI - [facility] showed multivessel disease - LVEF dropped to ~25% (was 65% in 05/2022) - s/p CABG x3 and AVR on 10/17/23 with BRICE to LAD, SVG to OM, SVG to PDA -stable Aortic Stenosis - AVR during CABG with 25 mm OnX mechanical prosthesis - warfarin dosing per pharmacy - INR 1.81 today Hypertension - controlled on current regimen Dyslipidemia - continue Atorvastatin 80 mg and Ezetimibe 10 mg DM1 - stable with management per primary team ESRD - PD Per Nephrology Paroxysmal Atrial Fibrillation - occurred in 06/2022 during hospitalization - has had intermittent arrhythmia this admission - continues PO Amiodarone - rates have been controlled throughout - he is now in sinus rhythm - continue Amiodarone and Lopressor -s/p Heparin gtt to Warfarin bridge, today INR 1.81 DVT - h/o RLE in 2017 - was on apixaban -> heparin -> wafarin with mechanical valve -INR 1.81 today Hyponatremia -now up-trending, today 132 (128) - on torsemide 100 mg BID - on fluid restriction - management per primary/nephrology team BLE swelling/redness/warmth -LLE > RLE -blisters and weeping to LLE -On IV antibiotics for cellulitis. -venous doppler shows no DVT Emiliana Dickson NP [facility] 10/31/2023 8:40 AM * Tim Richard RP - 10/31/2023 7:49 AM CDT Pharmacokinetic Consult - Vancomycin Dosing (Day 1) Juvenal Garvin Jr. is a 53 y.o. male who has been consulted for vancomycin dosing for B/L LE cellulitis w/ limited improvement on cefazolin . Current Antimicrobials Vancomycin Cefazolin Labs Relevant clinical data and objective history reviewed: Creatinine Date Value Ref Range Status 10/31/2023 9.34 (H) 0.80 - 1.30 mg/dL Final 10/30/2023 9.55 (H) 0.80 - 1.30 mg/dL Final 10/29/2023 9.66 (H) 0.80 - 1.30 mg/dL Final BUN Date Value Ref Range Status 10/31/2023 90 (H) 6 - 25 mg/dL Final 10/30/2023 93 (H) 6 - 25 mg/dL Final 10/29/2023 85 (H) 6 - 25 mg/dL Final Estimated Creatinine Clearance: 9.2 mL/min (A) (by Cockcroft-Gault based on SCr of 9.34 mg/dL (H)). I/O last 3 completed shifts: In: 3880 [P.O.:340; I.V.:40; Other:3500] Out: 5295 [Urine:200; Other:5095] Lab Results Component Value Date WBC 6.6 10/31/2023 HGB 7.9 (L) 10/31/2023 HCT 25.5 (L) 10/31/2023 MCV 94.4 10/31/2023 LABPLAT 366 10/31/2023 BP 137/63 (BP Location: Right arm) Pulse 66 Temp 37.1 ??C (98.7 ??F) Resp 18 Ht 177.8 cm (5' 10 ) Wt 124.8 kg (275 lb 2.2 oz) SpO2 99% BMI 39.48 kg/m?? Temp: [36.8 ??C (98.2 ??F)-37.2 ??C (99 ??F)] Pulse: [60-69] Resp: [18-20] BP: (119-148)/(57-68) Cultures: None Assessment/Plan The patient was empirically started on 1500 mg (10-15 mg/kg, and volume overloaded) x 1, then intermittent dosing thereafter given ESRD on PD. Goal random < 20 mcg/mL for cellulitis. Will obtain first random either 10/31 vs 11/01. Cefazolin dosed appropriately for PD. WBC wnl, afebrile (Tmax 99F),and mild/limited improvement in cellulitis after starting cefazolin. -- Initiate Vancomycin 1500 mg IV x 1 -- Obtain random 10/31- am -- Continue cefazolin 1 g IV Q24H -- Pending improvement would potentially wean off of cefazolin -- Will monitor daily Tim Richard, Jun BCPS Clinical Pharmacist Specialist 10/31/23 7:50 AM Vancomycin Dose: Total Body weight Dose < 40 kg 500 mg 41 - 49 kg 750 mg 50 - 74 kg 1000 mg 75 - 89 kg 1250 mg 90 - 109 kg 1500 mg 110 - 119 kg 1750 mg > 120 kg 2000 mg Initial regimen not to exceed 4000 mg/day Vancomycin Interval: CrCl (mL/min) Dosing Interval > 60 Every 12 hours 30 - 59 Every 24 hours 20 - 29 Every 48 hours < 20 Intermittent dosing Hemodialysis Intermittent dosing Peritoneal Dialysis Intermittent dosing CVVHD Every 24 hours Every 8 hour dosing may be considered for patients with CrCl > 90 mL/min Consider periodic trough levels (every 4-7 days) in patients receiving longer courses of therapy (greater than 5 days) to ensure adequate but not excessive concentrations: target between 10-20 mcg/mL Obtaining a SCr at least once weekly is recommended (more often with concomitant nephrotoxins). More frequent monitoring may be warranted. Hemodialysis patients should have serum drug concentrations measured every 3-7 days to determine time of next dose. Daily random drug levels are not warranted. Doses may be adjusted based on laboratory results and the pharmacokinetic and pharmacodynamic principles of the medication and the patient to attain target concentrations. *Consider initiating treatment in intermittent and every 48-hour patients with doses on Day 1 and Day 2. Patients on ECMO: Dose based on renal function. * Guerline Rodriguez PA - 10/30/2023 2:59 PM CDT Cardiothoracic Surgery Progress Note Subjective Chief Complaint: Severe multivessel coronary artery disease, moderate/severe aortic valve stenosis;s/p coronary artery bypass grafting x 3, aortic valve replacement (On-X mechanical), and sternal plating on 10/17/23 Interval History: No issues overnight. His stamina is improving but still remains low and he feels very edematous. He is on room air and his pain is currently under good control. He remains on a Heparin infusion. Objective VS: BP 119/60 (BP Location: Right arm, Patient Position: Sitting) Pulse 63 Temp 37.1 ??C (98.7 ??F) (Oral) Resp 20 Ht 177.8 cm (5' 10 ) Wt 124.8 kg (275 lb 2.2 oz) SpO2 99% BMI 39.48 kg/m?? 24hr Min/Max: Temp Min: 36.8 ??C (98.2 ??F) Max: 37.1 ??C (98.7 ??F) Pulse Min: 63 Max: 72 BP Min: 119/60 Max: 157/58 Resp Min: 18 Max: 20 SpO2 Min: 93 % Max: 99 % Intake/Output Summary (Last 24 hours) at 10/30/2023 1500 Last data filed at 10/30/2023 0835 Gross per 24 hour Intake 4540 ml Output 5295 ml Net -755 ml Cardiac Telemetry: sinus rhythm Physical Exam: Gen: A&O, NAD Lungs: Diminished breath sounds Heart: RRR Ext: Warm, 2+ lower extremity edema Skin: Sternal incision c/d/i Lab Review: Lab Results Component Value Date WBC 6.5 10/30/2023 HGB 7.6 (L) 10/30/2023 HCT 24.3 (L) 10/30/2023 LABPLAT 317 10/30/2023 SODIUM 132 (L) 10/30/2023 POTASSIUM 4.0 10/30/2023 CHLORIDE 89 (L) 10/30/2023 CO2 25 10/30/2023 ANIONGAP 18 (H) 10/30/2023 BUNSER 93 (H) 10/30/2023 CREATININE 9.55 (H) 10/30/2023 GLUCOSE 230 (H) 10/30/2023 GLUCOSE 292 (H) 10/30/2023 CALCIUM 9.3 10/30/2023 MAGNESIUM 2.4 10/30/2023 APTT 102 (H) 10/28/2023 INR 2.00 (H) 10/30/2023 PT 22.8 (H) 10/30/2023 Radiology Review: XR Chest 1 View - Portable - in AM [[id number]] Collected: 10/26/23 0740 Order Status: Completed Updated: 10/26/23742 Narrative: EXAMINATION: 1 view chest radiograph Impression: Comparison chest radiograph 10/25/2023 at 6:39 AM. The patient is status post a median sternotomy, sternal wires and plates are aligned. Surgical clips are present. A right internal jugular catheter is in place, tip overlies the superior vena cava. There is an unchanged small left pleural effusion with adjacent mild left basilar atelectasis. Thickening along the right minor fissure which may represent scarring and/or atelectasis. Mild right basilar airspace opacities may represent aspiration or atelectasis, new compared to prior examination. No definite right pleural effusion. No pneumothorax. No pulmonary edema. Heart size and mediastinal contours are unchanged. Assessment Severe multivessel coronary artery disease, moderate/severe aortic valve stenosis; s/p coronary artery bypass grafting x 3, aortic valve replacement (On- X mechanical), and sternal plating on 10/17/23 Acute on chronic systolic heart failure Hypertension Hyperlipidemia Type 1 diabetes mellitus ESRD on peritoneal dialysis Paroxysmal atrial fibrillation Sleep apnea Obesity GERD Acute blood loss anemia due to surgery Hyponatremia Left lower extremity cellulitis Plan ASA + Warfarin for anticoagulation, INR 2.0 today Metoprolol 12.5 mg BID for beta-umair therapy Amiodarone 200 mg BID for anti-arrhythmic therapy Atorvastatin and Ezetimibe for lipid lowering therapy Torsemide 100 mg BID for diuresis, peritoneal dialysis nightly, Nephrology managing Continue Phoslo, Calcitriol, and Retacrit weekly Home insulin pump for glucose control, Endocrinology following Continue Ancef for left lower extremity cellulitis [place] prn for pain control CPAP nightly Encouraged incentive spirometer use and increased activity Stress ulcer prophylaxis: Protonix DVT prophylaxis: INR therapeutic PT/OT: Inpatient rehab denied by insurance, will explore alternative options Plan reviewed with LESLY Larose 10/30/2023 * Nida Starr, FREIGHT AND PASSENGER AGENT - 10/30/2023 11:37 AM CDT Physical Therapy 10/30/23 1137 PT Last Visit Session Type Treatment PT Received On 10/30/23 Safe Environment Arm band checked;Patient found sitting in chair;Session completed bedside;Gait belt utilized for all out of bed mobility Subjective Agreeable to Therapy Additional Pertinent History Per nurse: Pt has cellulitis in BLE's - Doppler study was negative. Family/Caregiver Present Yes Precautions Precautions Cardiac sternal;Fall risk;Bed/Chair Alarm Precaution Comments Pt recalls 3/4 sternal precautions. Verbally reviewed 4/4 precautions with pt. Pt requires consistent cueing during session to maintain precautions Activity Tolerance Activity Tolerance Comments pre-activity vitals: BP: 125/56, HR: 64bpm, O2 sats; 98% on room air Post activity vitals: 142/52, HR: 66bpm, O2 sats: 99% on room air Pain Assessment Pain Assessment 0-10 Pain Score 0 - No pain Clinical Progression Not changed (0/10) Cognition Overall Cognitive Status WFL Orientation Oriented X4 (person, place, time, situation) Compliance/Behavior Easy to engage Seated Seated-Exercises Lower extremity Seated-Exercise Type Ankle pumps;Hip flexion;Long arc quads;ABduction;ADduction Reps/Sets 15 Seated-Motion AROM Bed Mobility 1 Bed Mobility From 1 Edge of bed Bed Mobility Type 1 To and from Bed Mobility to 1 Supine Level of Assistance 1 Standby Assist Bed Mobility Comments 1 bed flat but does use bedrail Transfer 1 Transfer From 1 Sit;Chair with arms;Bed Transfer Type 1 To and from Transfer to 1 Stand Transfer Device 1 No device;Wheeled walker Transfer Level of Assistance 1 Minimum Assist Transfers 2 Transfer From 2 Sit;Chair with arms Transfer Type 2 To and from Transfer to 2 Bed Technique 2 Stand and step Transfer Device 2 No device Transfer Level of Assistance 2 Minimum Assist Trials/Comments 2 Pt tends to reach for items to stabilize self on without WW Ambulation 1 Distance (ft) 1 180' Surface 1 Level tile Device 1 Wheeled walker Assistance 1 Minimum Assist Gait: Requires verbal cues to 1 Pace activity Gait Deviations 1 Base of support - increased;David - decreased;Hip/knee flexion during swing phase - decreased;Path deviation;Step length - decreased Quality of Gait 1 Pt takes 1 standing rest break. Pt continues with increased weight bearing on WW and shoulders elevated Ambulation Comments 1 Pt demo's improving activity tolerance this session Stairs Stairs No Stair Comments Pt reports having no stairs at home Other Comments Other PT Comments Pt tolerated treatment better this date. Pt with improving mobility with decreased rest breaks. Continue skilled PT treatment Safe Environment End of Therapy Session Safe Environment End of Therapy Session Patient left in recliner;RN notified;Call light within reach;Overbed table within reach (no chiar alarm in use at this time) Assessment Prognosis Good Problem List Gait deviations;Decreased strength;Decreased range of motion;Decreased endurance;Impaired balance;Decreased mobility Barriers to Discharge Current Mobility Status Plan Plan Continue with current plan;If this is the last note, consider this the discharge summary Recommendation/Plan PT Recommendation/Plan (S) Inpatient Rehab Facility Patient at high risk for Falls;Readmission;Injury due to decreased ability to care for self;Injury due to reduced functional status;Injury due to balance deficits;Injury at home as patient has not returned to prior level of function Recommend Inpatient Rehab/Acute Rehab due to Ability to actively participate in intensive therapy 3hours/day, 5 days/week or 900 minutes per week;Highly motivated to participate in therapy;Not at baseline due to impaired ability to complete ADLs;Impaired ability to complete functional mobility;Likely to return to the community at discharge with support system in place;Requires greater than 25% physical assistance with most mobility tasks;Requires greater than 25% physical assistance with most ADL tasks;Requires multiple therapy disciplines to address functional deficits PT Frequency during current admission 3-5x/wk Treatment/Interventions during current admission Balance Training;Bed mobility;Compensatory technique education;Endurance training;Functional activity;Functional transfer training;Gait training;Therapeutic activity;Therapeutic exercise;Transfer training PT Equipment Recommended Wheeled walker (pending progress. Pt reports owning a WW) Progress during current admission Progressing toward goals Education: Patient has been educated on the safety , precautions, mobility training, and home exercise program. Education completed via explanation, teach back, demonstration, and handout . Patient verbalized understanding and needs ongoing reinforcement Multi-Disciplinary Problems (from Physical Therapy) Active Problems Problem: PT Misc Start Date: 10/21/23 Goal Start Date Expected End Date End Date PT [place] [facility] [place] 10/21/23 11/04/23 -- Goal Details: Patient will perform supine<>sit Independent. Goal Start Date Expected End Date End Date PT [facility] 2 10/21/23 11/04/23 -- Goal Details: Patient will perform bed<>chair transfer Modified Independent with ww. Goal Start Date Expected End Date End Date PT [facility] 3 10/21/23 11/04/23 -- Goal Details: Patient will ambulate 350 feet Modified Independent with wheeled walker. Goal Start Date Expected End Date End Date PT [facility] 4 10/21/23 11/04/23 -- Goal Details: Patient will ambulate up/down 1 step Modified Independent as needed to enter and exithome. Cosigned by Annmarie Robb, PT at 10/30/2023 3:51 PM CDT * Nida Starr PTA - 10/30/2023 10:50 AM CDT Physical Therapy 10/30/23 1050 PT Last Visit Session Type Other (comment) PT Received On 10/30/23 PT Missed Visit Reason Other (comment) (Pt is currently in the shower. Will follow up as time allows.) * Yamilet Huddleston OT - 10/30/2023 9:45 AM CDT Occupational Therapy 10/30/23 0945 General Session Type Treatment OT Received On 10/30/23 Safe Environment Arm band checked;Patient found sitting in chair;Gait belt utilized for all out of bed mobility Subjective Agreeable to Therapy Subjective Comment doing alright Family/Caregiver Present No Precautions Precautions Fall risk;Bed/Chair Alarm;Sternal Pain Assessment Pain Assessment 0-10 Pain Score 3 Clinical Progression Not changed Pain Interventions Rest Grooming Grooming: Where assessed Standing at sink Grooming: Level of assistance Minimum Assist Grooming: Assistance with Wash/dry hands;Wash/dry face;Teeth care (standing balance) Tub Transfers Tub Transfers Minimal assistance Tub Transfers Comments Pt trained on tub transfer technique stepping in and sit and pivot using tubtransfer bench. Pt with increased safety using tub bench. Additional Activities Additional Activities Comments Pt participated in kitchen management task, discussed application ofsternal precautions and home set up/ Pt reports son will assist as well as moving PD bags. Activity Tolerance Endurance Tolerates 30 min activity with multiple rests Activity Tolerance Comments SpO2 97% on room air. HR 80bpm with activity. BP 133/68. Safe Environment End of Therapy Session Safe Environment End of Therapy Session Patient left in recliner;Call light within reach;Overbed table within reach Assessment Prognosis Good Problem List Decreased upper extremity strength;Decreased endurance;Decreased balance;Decreased ADLindependence;Decreased IADL independence Plan Plan Continue with current plan;If this is the last note, consider this the discharge summary Recommendation/Plan OT Recommendation (S) Inpatient Rehab Facility Patient at high risk for Falls;Readmission;Injury due to decreased ability to care for self;Injury due to reduced functional status;Injury due to balance deficits;Injury at home as patient has not returned to prior level of function Recommend Inpatient Rehab/Acute Rehab due to Ability to actively participate in intensive therapy 3hours/day, 5 days/week or 900 minutes per week;Highly motivated to participate in therapy;Not at baseline due to impaired ability to complete ADLs;Impaired ability to complete functional mobility;Likely to return to the community at discharge with support system in place;Requires greater than 25% physical assistance with most mobility tasks;Requires greater than 25% physical assistance with most ADL tasks;Requires multiple therapy disciplines to address functional deficits;Requires skilled therapy interventions to address neurological deficits OT Frequency during current admission 3-5x/wk Treatment/Interventions during current admission ADL/IADL retraining;Balance Training;Endurance training;Therapeutic activity Progress during current admission Progressing toward goals Education: Patient has been educated on the role of OT, safety, precautions, and ADL training. Education completed via verbal instruction. Patient verbalized understanding Multi-Disciplinary Problems (from Occupational Therapy) Active Problems Problem: OT Misc Start Date: 10/19/23 Goal Start Date Expected End Date End Date OT LTG 1 Pt will complete UE/LE dressing modified independent. 10/19/23 11/02/23 -- Goal Start Date Expected End Date End Date OT LTG 2 Pt will complete bathing with transfer modified independent. 10/19/23 11/02/23 -- Goal Start Date Expected End Date End Date OT LTG 3 Pt will complete toileting with transfer modified independent. 10/19/23 11/02/23 -- Goal Start Date Expected End Date End Date OT LTG 4 Pt will complete grooming at sink modified independent. 10/19/23 11/02/23 -- Goal Start Date Expected End Date End Date OT LTG 5 Pt will adhere to sternal precautions while completing transfers, mobility, and ADL tasks.10/19/23 11/02/23 -- * Nusrat Us RPh - 10/30/2023 9:30 AM CDT Warfarin monitoring Lab Results Component Value Date/Time INR 2.00 (H) 10/30/2023 04:18 AM HGB 7.6 (L) 10/30/2023 04:18 AM HGB 8.1 (L) 10/17/2023 12:26 PM HCT 24.3 (L) 10/30/2023 04:18 AM HCT 30.0 (L) 06/05/2022 03:22 PM LABPLAT 317 10/30/2023 04:18 AM Warfarin dose today: 2 mg Will continue to monitor INR. Patient at the lower end of acute postop goal of 2-2.5. Will re-dose 2 mg today. Cefazolin initiated yesterday. * Fernandez Carranza MD - 10/30/2023 9:20 AM CDT Images from the original note were not included. Nephrology Juvenal Garvin Jr. - 1970 Primary : Aditya Correa MD History and interval events: 53-year-old gentleman with history of type 1 diabetes mellitus on insulin pump, CHF, CAD, ESRD on peritoneal dialysis initially presented to [facility] in [facility] on October 09 for symptoms of general malaise for the past 4 days prior to admission. Patient was having symptoms of nausea with dry heaves. He presented hemodynamically stable. His glucose was measured to be 584, beta hydroxybutyrate 2.9 with an anion gap of 19. Patient was transferred to the ICU for insulin dripand DKA management. During this hospitalization his troponin was measured to be elevated prompting a cardiology consultation which lead to a LHC. Results were notable for severe CAD and he was recommended to seek surgical revascularization evaluation prompting transfer to this facility. He missed his peritoneal dialysis last evening during transfer. He has been on peritoneal dialysis for approximately 2 years and tolerating this well under the care of Dr. Reyes. He does make some urine. S/P 3v CABG and Mech AVR 10/17 Sitting in a bedside chair. PD went well lost night and he tolerated this well with initial drain of 2756 and UF of 2339 Medication: Current medication list reviewed Intake and Output Summary: Intake/Output Summary (Last 24 hours) at 10/30/2023 0920 Last data filed at 10/30/2023 0631 Gross per 24 hour Intake 4540 ml Output 200 ml Net 4340 ml Vital Signs: Vitals: 10/30/23 0758 BP: 133/68 Pulse: 67 Resp: 20 Temp: 36.8 ??C (98.2 ??F) SpO2: Physical Exam: General Sitting up and eating breakfast H&N ?JVP Eyes Pupils symmetrical with no scleral icterus Chest CTA Heart S1S2 reg Abdomen Soft and non tender PD catheter present Extremeties +2 lower extremity edema, erythema Neuro No tremor, awake and alert CBC: Recent Labs Lab Units 10/30/2341710/29/234 10/28/23 0034 WBC K/cumm 6.5 7.0 7.4 HEMOGLOBIN g/dL 7.6* 7.9* 7.4* HEMATOCRIT % 24.3* 25.2* 24.1* PLATELETS K/cumm 317 291 244 RFP: Recent Labs Lab Units 10/30/2341710/29/23 0404 10/28/23 0034 10/27/23 0230 SODIUM mmol/L 132* 129* 128* 123* POTASSIUM PLASMA mmol/L 4.0 4.1 4.4 4.2 CHLORIDE mmol/L 89* 87* 87* 85* CO2 mmol/L 25 23 22 24 BUN SERUM mg/dL 93* 85* 90* 87* CREATININE mg/dL 9.55* 9.66* 9.98* 10.09* CALCIUM mg/dL 9.3 9.5 8.9 8.7 PHOSPHORUS PLASMA mg/dL 5.4* 5.8* 6.3* 7.1* ALBUMIN g/dL 2.7* 2.9* 2.9* 2.9* Impression and Recommendations: 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 Multivessel coronary artery disease with aortic stenosis s/p CABG x 3 and AVR on 10/17 Type 1 diabetes mellitus Hypertension Anemia of chronic kidney disease Hyponatremia - complicated in PD patients but improving Continue PD as CCPD - continue to use 1 x 2.5% and 1 x 4.25% Dianeal and 1 L icodextran as last fall Check Venous LE doppler + antibiotics for LE cellulitis Limit free water intake Oral high dose loop diuretic BID CORRINE PO4 binder with meals Elevated TSH with low free T4, synthroid started Fernandez Carranza MD [facility]: MD Chula Domínguez PA Graeme Mindel, MD Justin Krafft, PA Derek Larson, MD FASN Rose Mattli, NP Rohan Devanpalli, MD Candace Shirley, NP [address] - [address] [place] [id number] [phone] - Office [phone] - Fax * Joselin Strickland MD - 10/30/2023 8:17 AM CDT Daily Progress Addendum 53-year-old male with coronary disease status post coronary bypass grafting x3 and AVR on 10/17/2023, hypertension, type 1 diabetes, dyslipidemia, end-stage renal disease, paroxysmal atrial fibrillation on warfarin and amiodarone, recent venous Doppler showed no evidence of DVT. Patient is on fluidrestriction and torsemide and has not had any further issues overnight Joselin Strickland MD FAC SUBJECTIVE: Mr. Garvin is sitting up in the chair. No acute events over the night. Denies chest pain, sob, palpitations, dizziness. BLE swelling/discomfort persists. Venous duplex pending results. OBJECTIVE: Vitals: 10/29/23202310/30/23 0006 10/30/23 0611 10/30/23 0758 BP: 157/58 140/60 144/75 133/68 BP Location: Right arm Right arm Right arm Right arm Patient Position: Reclining Sitting Reclining Sitting Pulse: 72 70 67 67 Resp: 18 18 18 20 Temp: 37.1 ??C (98.7 ??F) 36.9 ??C (98.4 ??F) 36.9 ??C (98.5 ??F) 36.8 ??C (98.2 ??F) TempSrc: Oral Oral Oral Oral SpO2: 95% 98% 98% Weight: Height: Intake/Output Summary (Last 24 hours) at 10/30/2023 0817 Last data filed at 10/30/2023 0631 Gross per 24 hour Intake 4540 ml Output 200 ml Net 4340 ml Scheduled Medications Medication Dose Route Frequency al & mag hydroxide meysqtvtfhg-iwxfssfeezduztr-exrduamsa-nystatin (MAGIC MOUTHWASH) oral suspension 1-1-1-1 20 mL 20 mL swish & swallow Q6H amiodarone (PACERONE) tablet 200 mg 200 mg oral Daily aspirin chewable tablet 81 mg 81 mg oral Daily atorvastatin (LIPITOR) tablet 80 mg 80 mg oral Daily calcitRIOL (ROCALTROL) capsule 0.25 mcg 0.25 mcg oral Daily calcium acetate(phosphat bind) (PHOSLO) capsule 1,334 mg 1,334 mg oral TID with meals ceFAZolin (ANCEF) 1 gram/10 mL in sterile water (premix) 1,000 mg 1,000 mg intravenous Q24H ASHLEY docusate sodium (COLACE) capsule 100 mg 100 mg oral BID epoetin genia-epbx (RETACRIT) (10,000 unit/mL) injection 10,000 Units 10,000 Units subcutaneous Weekly - 2100 ezetimibe (ZETIA) tablet 10 mg 10 mg oral Daily gentamicin (GARAMYCIN) 0.1 % cream topical Daily [Held by Provider] insulin lispro (HumaLOG, ADMELOG) 100 unit/mL injection 0-10 Units 0-10 Units subcutaneous QID (with meals & nightly) [Held by Provider] insulin lispro (HumaLOG, ADMELOG) 100 unit/mL injection 4 Units 4 Units subcutaneous TID with meals [Held by Provider] insulin NPH (HumuLIN N, NovoLIN N) 100 unit/mL injection 15 Units 15 Units subcutaneous Daily [Held by Provider] insulin NPH (HumuLIN N, NovoLIN N) 100 unit/mL injection 35 Units 35 Units subcutaneous Nightly levothyroxine (SYNTHROID) tablet 25 mcg 25 mcg oral Daily - 0600 metoprolol tartrate (LOPRESSOR) immediate release tablet 12.5 mg 12.5 mg oral BID pantoprazole DR (PROTONIX) extended release tablet 40 mg 40 mg oral Daily polyethylene glycol (MIRALAX) packet 17 g 17 g oral Daily senna (SENOKOT) tablet 1 tablet 1 tablet oral BID sodium chloride 0.9% flush 0.5-20 mL 0.5-20 mL intra-catheter Q8H ASHLEY [Held by Provider] sodium chloride tablet 1 g 1 g oral TID with meals torsemide (DEMADEX) tablet 100 mg 100 mg oral BID DIURETIC LABS: Recent Labs Lab Units 10/30/23 0418 WBC K/cumm 6.5 HEMOGLOBIN g/dL 7.6* HEMATOCRIT % 24.3* PLATELETS K/cumm 317 Recent Labs Lab Units 10/30/23 0620 10/30/23 0418 SODIUM mmol/L -- 132* POTASSIUM PLASMA mmol/L -- 4.0 CHLORIDE mmol/L -- 89* CO2 mmol/L -- 25 ANIONGAP mmol/L -- 18* GLUCOSE mg/dL -- 292* POC GLUCOSE MONITOR mg/dL 295* -- BUN SERUM mg/dL -- 93* CREATININE mg/dL -- 9.55* CALCIUM mg/dL -- 9.3 ALBUMIN g/dL -- 2.7* Lab Results Component Value Date BNP 113 (H) 03/21/2017 BNP 13 11/05/2013 Lab Results Component Value Date TROPONINI 0.03 03/21/2017 TROPONINI 0.03 03/21/2017 TROPONINI <0.03 11/06/2013 Exam General: in no apparent distress Neuro: Alert and oriented x 3, moves all extremities well HEENT: normocephalic, atraumatic, thyroid not enlarged. Neck: I do not appreciate JVD. Lungs: symmetric, unlabored, clear to auscultation bilaterally Heart: S1,S2, regular rate & rhythm, no murmurs, rubs, or gallops Abdomen: obese, soft, non-tender, non-distended, bowel sounds present Extremities: 2-3+ BLE edema, palpable peripheral pulses BL, BLE with redness and warmth, weeping with blisters LLE Neurologic: No focal deficits Skin: sternotomy healing well ASSESSMENT/PLAN: CAD - prior SC with multiple PCI - LHC showed multivessel disease - LVEF dropped to ~25% (was 65% in 05/2022) - s/p CABG x3 and AVR on 10/17/23 with BRICE to LAD, SVG to OM, SVG to PDA -stable Aortic Stenosis - AVR during CABG with 25 mm OnX mechanical prosthesis - warfarin dosing per pharmacy - INR 2.00 today Hypertension - controlled on current regimen Dyslipidemia - continue Atorvastatin 80 mg and Ezetimibe 10 mg DM1 - stable with management per primary team ESRD - PD Per Nephrology Paroxysmal Atrial Fibrillation - occurred in 06/2022 during hospitalization - has had intermittent arrhythmia this admission - continues PO Amiodarone - rates have been controlled throughout - he is now in sinus rhythm - continue Amiodarone and Lopressor -s/p Heparin gtt to Warfarin bridge, today INR 2.00 DVT - h/o RLE in 2017 - was on apixaban -> heparin -> wafarin with mechanical valve -INR 2.00 today Hyponatremia -now up-trending, today 132 (128) - on torsemide 100 mg BID - on fluid restriction - management per primary/nephrology team BLE swelling/redness/warmth -LLE > RLE -blisters and weeping to LLE -On IV antibiotics for cellulitis. -venous doppler pending Emiliana Dickson NP [facility] 10/30/2023 8:17 AM * Nida Starr, FREIGHT AND PASSENGER AGENT - 10/30/2023 7:44 AM CDT Physical Therapy 10/30/23 0744 PT Last Visit Session Type Other (comment) PT Received On 10/30/23 PT Missed Visit Reason Procedure/testing/appointment (Pt remains on PD at this time. Will follow up once completed) * Nona Alcala, LESLY - 10/29/2023 12:10 PM CDT Cardiothoracic Surgery Progress Note Subjective Chief Complaint: Severe multivessel coronary artery disease, moderate/severe aortic valve stenosis;s/p coronary artery bypass grafting x 3, aortic valve replacement (On-X mechanical), and sternal plating on 10/17/23 Interval History: patient doing well today, no new issues. Objective VS: BP 153/91 (BP Location: Right arm, Patient Position: Reclining) Pulse 66 Temp 36.8 ??C (98.2 ??F) (Oral) Resp 18 Ht 177.8 cm (5' 10 ) Wt 128.8 kg (283 lb 15.2 oz) SpO2 97% BMI 40.74kg/m?? 24hr Min/Max: Temp Min: 36.6 ??C (97.8 ??F) Max: 37.1 ??C (98.8 ??F) Pulse Min: 58 Max: 67 BP Min: 134/68 Max: 153/91 Resp Min: 18 Max: 18 SpO2 Min: 95 % Max: 97 % Intake/Output Summary (Last 24 hours) at 10/29/2023 1210 Last data filed at 10/29/2023 0406 Gross per 24 hour Intake 1200 ml Output 4508 ml Net -3308 ml Cardiac Telemetry: sinus rhythm Physical Exam: Gen: Awake and alert, sitting up in chair, nad Lungs: Normal resp pattern, room air Heart: NSR Ext: 2++ lower extremity edema, increased erythema, left > right. Oozing from blisters Skin: Sternal incision c/d/i Lab Review: Lab Results Component Value Date WBC 7.0 10/29/2023 HGB 7.9 (L) 10/29/2023 HCT 25.2 (L) 10/29/2023 LABPLAT 291 10/29/2023 SODIUM 129 (L) 10/29/2023 POTASSIUM 4.1 10/29/2023 CHLORIDE 87 (L) 10/29/2023 CO2 23 10/29/2023 ANIONGAP 19 (H) 10/29/2023 BUNSER 85 (H) 10/29/2023 CREATININE 9.66 (H) 10/29/2023 GLUCOSE 279 (H) 10/29/2023 GLUCOSE 297 (H) 10/29/2023 CALCIUM 9.5 10/29/2023 MAGNESIUM 2.4 10/29/2023 APTT 102 (H) 10/28/2023 INR 2.36 (H) 10/29/2023 PT 26.9 (H) 10/29/2023 Radiology Review: Assessment Severe multivessel coronary artery disease, moderate/severe aortic valve stenosis; s/p coronary artery bypass grafting x 3, aortic valve replacement (On- X mechanical), and sternal plating on 10/17/23 Acute on chronic systolic heart failure Hypertension Hyperlipidemia Type 1 diabetes mellitus ESRD on peritoneal dialysis Paroxysmal atrial fibrillation Sleep apnea Obesity GERD Acute blood loss anemia due to surgery Hyponatremia Concern for lower extremity cellulitis Plan Start IV Ancef for cellulitis Check LE dopplers to r/o DVT ASA + Warfarin for anticoagulation, INR 2.36 today Metoprolol 12.5 mg BID for beta-umair therapy Amiodarone 200 mg daily for anti-arrhythmic therapy Atorvastatin and Ezetimibe for lipid lowering therapy peritoneal dialysis nightly per Nephrology. D/w Dr. Walker - plans to adjust PD tonight to further maximize UF, no need for HD at this point. Continue Torsemide 100 mg BID. Continue calcitriol, phoslo, and EPA weekly. Fluid restriction 1000 ml/daily. Sodium improving, Salt tablets on hold Home insulin pump resumed per Endocrinology Levothyroxine 25 mcg added per Endocrine Tylenol and norco prn for pain control CPAP nightly Encouraged incentive spirometer use and ambulation Stress ulcer prophylaxis: Protonix DVT prophylaxis: INR therapeutic PT/OT: Inpatient rehab currently recommended at discharge Plan reviewed with LESLY Mack 10/29/2023 * Adam Walker MD - 10/29/2023 11:25 AM CDT Images from the original note were not included. Nephrology Juvenal Garvin Jr. - 1970 Primary : Aditya Correa MD History and interval events: 53-year-old gentleman with history of type 1 diabetes mellitus on insulin pump, CHF, CAD, ESRD on peritoneal dialysis initially presented to [facility] in [facility] on October 09 for symptoms of general malaise for the past 4 days prior to admission. Patient was having symptoms of nausea with dry heaves. He presented hemodynamically stable. His glucose was measured to be 584, beta hydroxybutyrate 2.9 with an anion gap of 19. Patient was transferred to the ICU for insulin dripand DKA management. During this hospitalization his troponin was measured to be elevated prompting a cardiology consultation which lead to a [facility]. Results were notable for severe CAD and he was recommended to seek surgical revascularization evaluation prompting transfer to this facility. He missed his peritoneal dialysis last evening during transfer. He has been on peritoneal dialysis for approximately 2 years and tolerating this well under the care of Dr. Reyes. He does make some urine. S/P 3v CABG and Mech AVR 10/17 Sitting in a bedside chair. Weeping of his LE noted. Legs are bright red in color. Doppler ordered. D/W Dr. Osuna today. Initial drain 2637 with total UF 1721. Medication: Current medication list reviewed Intake and Output Summary: Intake/Output Summary (Last 24 hours) at 10/29/2023 1125 Last data filed at 10/29/2023 0406 Gross per 24 hour Intake 1200 ml Output 4508 ml Net -3308 ml Vital Signs: Vitals: 10/29/23 0818 BP: 153/91 Pulse: 66 Resp: 18 Temp: 36.8 ??C (98.2 ??F) SpO2: 97% Physical Exam: General Sitting up and eating breakfast H&N ?JVP Eyes Pupils symmetrical with no scleral icterus Chest CTA Heart S1S2 reg Abdomen Soft and non tender PD catheter present Extremeties +2 lower extremity edema, weeping, erythema Neuro No tremor, awake and alert CBC: Recent Labs Lab Units 10/29/23 0404 10/28/23 0034 10/27/23 0230 WBC K/cumm 7.0 7.4 8.0 HEMOGLOBIN g/dL 7.9* 7.4* 7.5* HEMATOCRIT % 25.2* 24.1* 23.7* PLATELETS K/cumm 291 244 222 RFP: Recent Labs Lab Units 10/29/23 0404 10/28/23 0034 10/27/23 0230 10/26/23 0229 SODIUM mmol/L 129* 128* 123* 124* POTASSIUM PLASMA mmol/L 4.1 4.4 4.2 4.2 CHLORIDE mmol/L 87* 87* 85* 84* CO2 mmol/L 24 23 BUN SERUM mg/dL 85* 90* 87* 85* CREATININE mg/dL 9.66* 9.98* 10.09* 9.95* CALCIUM mg/dL 9.5 8.9 8.7 8.6 PHOSPHORUS PLASMA mg/dL 5.8* 6.3* 7.1* 6.5* ALBUMIN g/dL 2.9* 2.9* 2.9* 3.0* Impression and Recommendations: 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 Multivessel coronary artery disease with aortic stenosis s/p CABG x 3 and AVR on 10/17 Type 1 diabetes mellitus Hypertension Anemia of chronic kidney disease Hyponatremia - complicated in PD patients but improving Continue PD as CCPD His fluid removal with PD has been excellent Last night, Initial drain was 2637 and total UF was 1721 This represents a net fluid removal of 3.3L His weight has also improved by 6 lbs over the last 3 days Further fluid removal is needed but no indication to transition to HD Will add 4.25% bag with overnight PD to further maximize UF Icodextran 1 L last fill Check Venous LE doppler + antibiotics for LE cellulitis Limit free water intake Oral high dose loop diuretic BID Hold salt tablets for now CORRINE PO4 binder with meals Elevated TSH with low free T4, synthroid started D/W nursing and Dr. Thao Walker MD [facility]: MD Chula Domínguez PA Graeme Mindel, MD Justin Krafft, MD STANISLAV Camacho, MD Shanda Pederson, SENIOR CAREGIVER [address] - [address] [place], [place] [address] [phone] - Office [phone] - Fax * Manda Schaffer NP - 10/29/2023 9:35 AM CDT Daily Progress SUBJECTIVE: Mr. Garvin is resting in chair, NAD Incisional discomfort, BLE discomfort Denies SOB, dizziness and palpitations OBJECTIVE: Vitals: 10/29/23 0406 10/29/23 0432 10/29/23 0500 10/29/23 0818 BP: 139/62 153/91 BP Location: Right arm Right arm Patient Position: Reclining Pulse: 65 65 66 Resp: 18 18 Temp: 36.7 ??C (98 ??F) 36.8 ??C (98.2 ??F) TempSrc: Oral Oral SpO2: 95% 97% Weight: 128.8 kg (283 lb 15.2 oz) Height: Intake/Output Summary (Last 24 hours) at 10/29/2023 0935 Last data filed at 10/29/2023 0406 Gross per 24 hour Intake 1200 ml Output 4508 ml Net -3308 ml Scheduled Medications Medication Dose Route Frequency al & mag hydroxide jxdmtrjkszx-asiqoflmddmbuvc-jlfusabdg-nystatin (MAGIC MOUTHWASH) oral suspension 1-1-1-1 20 mL 20 mL swish & swallow Q6H amiodarone (PACERONE) tablet 200 mg 200 mg oral Daily aspirin chewable tablet 81 mg 81 mg oral Daily atorvastatin (LIPITOR) tablet 80 mg 80 mg oral Daily calcitRIOL (ROCALTROL) capsule 0.25 mcg 0.25 mcg oral Daily calcium acetate(phosphat bind) (PHOSLO) capsule 1,334 mg 1,334 mg oral TID with meals docusate sodium (COLACE) capsule 100 mg 100 mg oral BID epoetin genia-epbx (RETACRIT) (10,000 unit/mL) injection 10,000 Units 10,000 Units subcutaneous Weekly - 2100 ezetimibe (ZETIA) tablet 10 mg 10 mg oral Daily gentamicin (GARAMYCIN) 0.1 % cream topical Daily [Held by Provider] insulin lispro (HumaLOG, ADMELOG) 100 unit/mL injection 0-10 Units 0-10 Units subcutaneous QID (with meals & nightly) [Held by Provider] insulin lispro (HumaLOG, ADMELOG) 100 unit/mL injection 4 Units 4 Units subcutaneous TID with meals [Held by Provider] insulin NPH (HumuLIN N, NovoLIN N) 100 unit/mL injection 15 Units 15 Units subcutaneous Daily [Held by Provider] insulin NPH (HumuLIN N, NovoLIN N) 100 unit/mL injection 35 Units 35 Units subcutaneous Nightly levothyroxine (SYNTHROID) tablet 25 mcg 25 mcg oral Daily - 0600 metoprolol tartrate (LOPRESSOR) immediate release tablet 12.5 mg 12.5 mg oral BID pantoprazole DR (PROTONIX) extended release tablet 40 mg 40 mg oral Daily polyethylene glycol (MIRALAX) packet 17 g 17 g oral Daily senna (SENOKOT) tablet 1 tablet 1 tablet oral BID sodium chloride 0.9% flush 0.5-20 mL 0.5-20 mL intra-catheter Q8H ASHLEY sodium chloride tablet 1 g 1 g oral TID with meals torsemide (DEMADEX) tablet 100 mg 100 mg oral BID DIURETIC warfarin (COUMADIN) tablet 2 mg 2 mg oral Once - 1800 LABS: Recent Labs Lab Units 10/29/23 0404 WBC K/cumm 7.0 HEMOGLOBIN g/dL 7.9* HEMATOCRIT % 25.2* PLATELETS K/cumm 291 Recent Labs Lab Units 10/29/23 0816 10/29/23 0404 SODIUM mmol/L -- 129* POTASSIUM PLASMA mmol/L -- 4.1 CHLORIDE mmol/L -- 87* CO2 mmol/L -- 23 ANIONGAP mmol/L -- 19* GLUCOSE mg/dL -- 297* POC GLUCOSE MONITOR mg/dL 279* -- BUN SERUM mg/dL -- 85* CREATININE mg/dL -- 9.66* CALCIUM mg/dL -- 9.5 ALBUMIN g/dL -- 2.9* Lab Results Component Value Date BNP 113 (H) 03/21/2017 BNP 13 11/05/2013 Lab Results Component Value Date TROPONINI 0.03 03/21/2017 TROPONINI 0.03 03/21/2017 TROPONINI <0.03 11/06/2013 Exam General: in no apparent distress and well developed and well nourished Neuro: Alert and oriented x 3, moves all extremities well HEENT: normocephalic, atraumatic, thyroid not enlarged. Neck: I do not appreciate JVD. Lungs: symmetric, unlabored, clear to auscultation bilaterally Heart: S1,S2, regular rate & rhythm, no murmurs, rubs, or gallops Abdomen: obese, soft, non-tender, non-distended, bowel sounds present Extremities: 2-3+ BLE edema, palpable peripheral pulses BL, BLE with redness and warmth, weeping with blisters LLE Neurologic: No focal deficits Skin: sternotomy healing well ASSESSMENT/PLAN: CAD - prior SC with multiple PCI - [facility] showed multivessel disease - LVEF dropped to ~25% (was 65% in 05/2022) - s/p CABG x3 and AVR on 10/17/23 with BRICE to LAD, SVG to OM, SVG to PDA -stable Aortic Stenosis - AVR during CABG with 25 mm OnX mechanical prosthesis - warfarin dosing per pharmacy - INR 2.64 today Hypertension - controlled on current regimen Dyslipidemia - continue Atorvastatin 80 mg and Ezetimibe 10 mg DM1 - stable with management per primary team ESRD - Per Nephrology Paroxysmal Atrial Fibrillation - occurred in 06/2022 during hospitalization - has had intermittent arrhythmia this admission - continues PO Amiodarone - rates have been controlled throughout - he is now in sinus rhythm - continue Amiodarone and Lopressor -s/p Heparin gtt to Warfarin bridge, today INR 2.64 DVT - h/o RLE in 2017 - was on apixaban -> heparin -> wafarin with mechanical valve -INR 2.64 today Hyponatremia -now up-trending, today 129 (128) - on torsemide 100 mg BID - on fluid restriction - management per primary/nephrology team BLE swelling/redness/warmth -LLE > RLE -blisters and weeping to LLE -venous doppler pending Manda Schaffer NP [facility] 10/29/2023 9:35 AM Cosigned by Ramirez Newberry MD at 10/29/2023 1:46 PM CDT * Nona Alcala PA - 10/28/2023 2:53 PM CST Cardiothoracic Surgery Progress Note Subjective Chief Complaint: Severe multivessel coronary artery disease, moderate/severe aortic valve stenosis;s/p coronary artery bypass grafting x 3, aortic valve replacement (On-X mechanical), and sternal plating on 10/17/23 Interval History: patient doing well today, no new issues. Objective VS: BP 135/71 (BP Location: Right arm, Patient Position: Reclining) Pulse 58 Temp 37 ??C (98.6 ??F) (Oral) Resp 18 Ht 177.8 cm (5' 10 ) Wt 129.4 kg (285 lb 4.4 oz) SpO2 96% BMI 40.93 kg/m?? 24hr Min/Max: Temp Min: 36.6 ??C (97.8 ??F) Max: 37 ??C (98.6 ??F) Pulse Min: 58 Max: 74 BP Min: 131/62 Max: 149/60 Resp Min: 18 Max: 20 SpO2 Min: 92 % Max: 99 % Intake/Output Summary (Last 24 hours) at 10/28/2023 1453 Last data filed at 10/28/2023 0653 Gross per 24 hour Intake 120 ml Output 4537 ml Net -4417 ml Cardiac Telemetry: sinus rhythm Physical Exam: Gen: Awake and alert, resting in chair, nad Lungs: Normal resp pattern, room air Heart: NSR Ext: 2++ lower extremity edema Skin: Sternal incision c/d/i Lab Review: Lab Results Component Value Date WBC 7.4 10/28/2023 HGB 7.4 (L) 10/28/2023 HCT 24.1 (L) 10/28/2023 LABPLAT 244 10/28/2023 SODIUM 128 (L) 10/28/2023 POTASSIUM 4.4 10/28/2023 CHLORIDE 87 (L) 10/28/2023 CO2 22 10/28/2023 ANIONGAP 19 (H) 10/28/2023 BUNSER 90 (H) 10/28/2023 CREATININE 9.98 (H) 10/28/2023 GLUCOSE 201 (H) 10/28/2023 GLUCOSE 270 (H) 10/28/2023 CALCIUM 8.9 10/28/2023 MAGNESIUM 2.3 10/28/2023 APTT 102 (H) 10/28/2023 INR 2.64 (H) 10/28/2023 PT 30.1 (H) 10/28/2023 Radiology Review: CXR IMPRESSION: Comparison made to radiograph 10/27/2023. Right internal jugular approach central venous catheter tip overlying the superior vena cava. Median sternotomy wires and plates in similar alignment. Likely small bilateral pleural effusions with fluid along the right minor fissure. There is mild bibasilar atelectasis. No pneumothorax. Cardiomediastinal silhouette is stably enlarged. Assessment Severe multivessel coronary artery disease, moderate/severe aortic valve stenosis; s/p coronary artery bypass grafting x 3, aortic valve replacement (On- X mechanical), and sternal plating on 10/17/23 Acute on chronic systolic heart failure Hypertension Hyperlipidemia Type 1 diabetes mellitus ESRD on peritoneal dialysis Paroxysmal atrial fibrillation Sleep apnea Obesity GERD Acute blood loss anemia due to surgery Hyponatremia Plan ASA + Warfarin for anticoagulation, INR 2.64 today Metoprolol 12.5 mg BID for beta-umair therapy Amiodarone 200 mg daily for anti-arrhythmic therapy Atorvastatin and Ezetimibe for lipid lowering therapy Torsemide 100 mg BID for diuresis, peritoneal dialysis nightly, Nephrology managing. Continue calcitriol, phoslo, and EPA weekly. Fluid restriction 1000 ml/daily. Salt tablets 1 g TID Home insulin pump resumed per Endocrinology Levothyroxine 25 mcg added per Endocrine due high TSH and low free T4 Tylenol and norco prn for pain control CPAP nightly Encouraged incentive spirometer use and ambulation Stress ulcer prophylaxis: Protonix DVT prophylaxis: INR therapeutic PT/OT: Inpatient rehab currently recommended at discharge Plan reviewed with LESLY Mack 10/28/2023 DING ADMIN * Sophia Peoples COTA - 10/28/2023 2:17 PM CST Occupational Therapy 10/28/23 1417 General Session Type Treatment OT Received On 10/28/23 Safe Environment Arm band checked;Patient found sitting in chair;Gait belt utilized for all out of bed mobility Subjective Agreeable to Therapy Subjective Comment I'm ok Family/Caregiver Present Yes Pain Assessment Pain Assessment No/denies pain Pain Score 3 Pain Location Incision Clinical Progression Not changed Grooming Grooming: Where assessed Standing at sink Grooming: Level of assistance Minimum Assist Grooming: Assistance with Safety (balance) LE Dressing LE Dressing: Where assessed Chair;Sitting LE Dressing: Level of assistance Maximum Assist LE Dressing: Assistance with Don/doff R sock;Don/doff L sock Transfer 1 Transfer Type 1 To and from Transfer to 1 Sit;Stand Transfer Level of Assistance 1 Minimum Assist (force production of trunk) Additional Activities Additional Activities Comments To simulate home functional mobility pt ambulated within room and hallways with WW minimal assist , multiples standing est breaks Activity Tolerance Endurance Tolerates 30 min activity with multiple rests Other Comments Comments virals pre activity HR 62, SpO2 97, BP 142/54 Safe Environment End of Therapy Session Safe Environment End of Therapy Session Patient left in chair;Call light within reach;Overbed tablewithin reach Assessment Prognosis Good Problem List Decreased upper extremity strength;Decreased endurance;Visual deficit;Decreased functional mobility;Decreased ADL independence;Decreased IADL independence Plan Plan Continue with current plan;If this is the last note, consider this the discharge summary Recommendation/Plan OT Recommendation (S) Inpatient Rehab Facility Patient at high risk for Injury due to decreased ability to care for self;Injury due to balance deficits;Injury at home as patient has not returned to prior level of function;Falls Recommend Inpatient Rehab/Acute Rehab due to Ability to actively participate in intensive therapy 3hours/day, 5 days/week or 900 minutes per week;Highly motivated to participate in therapy;Not at baseline due to impaired ability to complete ADLs;Impaired ability to complete functional mobility;Requires greater than 25% physical assistance with most mobility tasks;Requires greater than 25% physical assistance with most ADL tasks;Requires multiple therapy disciplines to address functional deficits Treatment/Interventions during current admission ADL/IADL retraining;Balance Training;Bed mobility;Endurance training;Functional activity;Functional mobility training;Functional transfer training Progress during current admission Progressing toward goals Multi-Disciplinary Problems (from Occupational Therapy) Active Problems Problem: OT Misc Start Date: 10/19/23 Goal Start Date Expected End Date End Date OT LTG 1 Pt will complete UE/LE dressing modified independent. 10/19/23 11/02/23 -- Goal Start Date Expected End Date End Date OT LTG 2 Pt will complete bathing with transfer modified independent. 10/19/23 11/02/23 -- Goal Start Date Expected End Date End Date OT LTG 3 Pt will complete toileting with transfer modified independent. 10/19/23 11/02/23 -- Goal Start Date Expected End Date End Date OT LTG 4 Pt will complete grooming at sink modified independent. 10/19/23 11/02/23 -- Goal Start Date Expected End Date End Date OT LTG 5 Pt will adhere to sternal precautions while completing transfers, mobility, and ADL tasks.10/19/23 11/02/23 -- Education: Patient has been educated on the role of OT, safety, precautions, ADL training, mobilitytraining, home exercise program, body mechanics, energy conservation, and use of adaptive equipment/DME. Education completed via verbal instruction and return demonstration. Patient needs ongoing reinforcement Cosigned by Mell Hills OT at 10/30/2023 1:30 PM CDT DING ADMIN * Adam Walker MD - 10/28/2023 1:22 PM CST Images from the original note were not included. Nephrology Juvenal Garvin Jr. - 1970 Primary : Aditya Correa MD History and interval events: 53-year-old gentleman with history of type 1 diabetes mellitus on insulin pump, CHF, CAD, ESRD on peritoneal dialysis initially presented to [facility] in [facility] on October 09 for symptoms of general malaise for the past 4 days prior to admission. Patient was having symptoms of nausea with dry heaves. He presented hemodynamically stable. His glucose was measured to be 584, beta hydroxybutyrate 2.9 with an anion gap of 19. Patient was transferred to the ICU for insulin dripand DKA management. During this hospitalization his troponin was measured to be elevated prompting a cardiology consultation which lead to a [facility]. Results were notable for severe CAD and he was recommended to seek surgical revascularization evaluation prompting transfer to this facility. He missed his peritoneal dialysis last evening during transfer. He has been on peritoneal dialysis for approximately 2 years and tolerating this well under the care of Dr. Reyes. He does make some urine. S/P 3v CABG and Mech AVR 10/17 No new complaints, sitting upright in a bedside chair. Serum sodium has improved. Initial drain 2857 with total UF 1680. Medication: Current medication list reviewed Intake and Output Summary: Intake/Output Summary (Last 24 hours) at 10/28/2023 1322 Last data filed at 10/28/2023 0653 Gross per 24 hour Intake 120 ml Output 4537 ml Net -4417 ml Vital Signs: Vitals: 10/28/23 1223 BP: 135/71 Pulse: 58 Resp: 18 Temp: 37 ??C (98.6 ??F) SpO2: 96% Physical Exam: General Sitting up and eating breakfast H&N ?JVD Eyes Pupils symmetrical with no scleral icterus Chest CTA Heart S1S2 reg Abdomen Soft and non tender PD catheter present Extremeties +2 lower extremity edema Skin No rash Neuro No tremor, awake and alert Mental status CBC: Recent Labs Lab Units 10/28/233310/27/2322910/26/23228 WBC K/cumm 7.4 8.0 7.9 HEMOGLOBIN g/dL 7.4* 7.5* 7.9* HEMATOCRIT % 24.1* 23.7* 24.7* PLATELETS K/cumm 244 222 209 RFP: Recent Labs Lab Units 10/28/23 0034 10/27/23 0230 10/26/2322810/25/2333 SODIUM mmol/L 128* 123* 124* 128* POTASSIUM PLASMA mmol/L 4.4 4.2 4.2 4.0 CHLORIDE mmol/L 87* 85* 84* 86* CO2 mmol/L 24 23 21* BUN SERUM mg/dL 90* 87* 85* 86* CREATININE mg/dL 9.98* 10.09* 9.95* 10.57* CALCIUM mg/dL 8.9 8.7 8.6 9.0 PHOSPHORUS PLASMA mg/dL 6.3* 7.1* 6.5* 6.5* ALBUMIN g/dL 2.9* 2.9* 3.0* 2.9* Impression and Recommendations: 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 Bowel regimen CORRINE PO4 binder with meals - improved Elevated TSH with low free T4, consider thyroid supplementation? Adam Walker MD [facility] Consultants: MD Chula Domínguez, MD Renny Flood PA Derek Larson, MD FASN Rose Mattli, MD Shanda Pederson, ROBERTO [address] - [address] [place] [address] [id number] [phone] Office [phone] - Fax DING ADMIN * Manda Schaffer NP - 10/28/2023 8:01 AM CST Daily Progress SUBJECTIVE: Mr. Garvin is resting in bed, NAD Denies any CP, SOB, dizziness Remains in SR OBJECTIVE: Vitals: 10/27/23 2200 10/28/23 0004 10/28/23 0530 10/28/23 0734 BP: 149/60 144/61 BP Location: Right arm Left arm Patient Position: Pulse: 72 74 64 Resp: 18 18 Temp: 37 ??C (98.6 ??F) TempSrc: Oral SpO2: 98% 92% Weight: 129.4 kg (285 lb 4.4 oz) Height: Intake/Output Summary (Last 24 hours) at 10/28/2023 0802 Last data filed at 10/28/2023 0653 Gross per 24 hour Intake 276.76 ml Output 8167 ml Net -7890.24 ml Scheduled Medications Medication Dose Route Frequency al & mag hydroxide miwhvhonprp-abdyfddpthhxciv-skicceakd-nystatin (MAGIC MOUTHWASH) oral suspension 1-1-1-1 20 mL 20 mL swish & swallow Q6H amiodarone (PACERONE) tablet 200 mg 200 mg oral Daily aspirin chewable tablet 81 mg 81 mg oral Daily atorvastatin (LIPITOR) tablet 80 mg 80 mg oral Daily calcitRIOL (ROCALTROL) capsule 0.25 mcg 0.25 mcg oral Daily calcium acetate(phosphat bind) (PHOSLO) capsule 1,334 mg 1,334 mg oral TID with meals docusate sodium (COLACE) capsule 100 mg 100 mg oral BID epoetin genia-epbx (RETACRIT) (10,000 unit/mL) injection 10,000 Units 10,000 Units subcutaneous Weekly - 2100 ezetimibe (ZETIA) tablet 10 mg 10 mg oral Daily gentamicin (GARAMYCIN) 0.1 % cream topical Daily [Held by Provider] insulin lispro (HumaLOG, ADMELOG) 100 unit/mL injection 0-10 Units 0-10 Units subcutaneous QID (with meals & nightly) [Held by Provider] insulin lispro (HumaLOG, ADMELOG) 100 unit/mL injection 4 Units 4 Units subcutaneous TID with meals [Held by Provider] insulin NPH (HumuLIN N, NovoLIN N) 100 unit/mL injection 15 Units 15 Units subcutaneous Daily [Held by Provider] insulin NPH (HumuLIN N, NovoLIN N) 100 unit/mL injection 35 Units 35 Units subcutaneous Nightly metoprolol tartrate (LOPRESSOR) immediate release tablet 12.5 mg 12.5 mg oral BID pantoprazole DR (PROTONIX) extended release tablet 40 mg 40 mg oral Daily polyethylene glycol (MIRALAX) packet 17 g 17 g oral Daily senna (SENOKOT) tablet 1 tablet 1 tablet oral BID sodium chloride 0.9% flush 0.5-20 mL 0.5-20 mL intra-catheter Q8H [facility] sodium chloride tablet 1 g 1 g oral TID with meals torsemide (DEMADEX) tablet 100 mg 100 mg oral BID DIURETIC LABS: Recent Labs Lab Units 10/28/23 0034 WBC K/cumm 7.4 HEMOGLOBIN g/dL 7.4* HEMATOCRIT % 24.1* PLATELETS K/cumm 244 Recent Labs Lab Units 10/28/23 0034 SODIUM mmol/L 128* POTASSIUM PLASMA mmol/L 4.4 CHLORIDE mmol/L 87* CO2 mmol/L 22 ANIONGAP mmol/L 19* GLUCOSE mg/dL 270* BUN SERUM mg/dL 90* CREATININE mg/dL 9.98* CALCIUM mg/dL 8.9 ALBUMIN g/dL 2.9* Lab Results Component Value Date BNP 113 (H) 03/21/2017 BNP 13 11/05/2013 Lab Results Component Value Date TROPONINI 0.03 03/21/2017 TROPONINI 0.03 03/21/2017 TROPONINI <0.03 11/06/2013 Exam General: in no apparent distress and well developed and well nourished Neuro: Alert and oriented x 3, moves all extremities well HEENT: normocephalic, atraumatic, thyroid not enlarged. Neck: I do not appreciate JVD. Lungs: symmetric, unlabored, clear to auscultation bilaterally Heart: S1,S2, regular rate & rhythm, no murmurs, rubs, or gallops Abdomen: obese, soft, non-tender, non-distended, bowel sounds present Extremities: 2-3+ BLE edema, palpable peripheral pulses BL, BLE with redness and warmth, weeping LLE Neurologic: No focal deficits Skin: sternotomy healing well ASSESSMENT/PLAN: CAD - prior SC with multiple PCI - C showed multivessel disease - LVEF dropped to ~25% (was 65% in 05/2022) - s/p CABG x3 and AVR on 10/17/23 with BRICE to LAD, SVG to OM, SVG to PDA -stable Aortic Stenosis - AVR during CABG with 25 mm OnX mechanical prosthesis - warfarin dosing per pharmacy - INR 2.64 today Hypertension - controlled on current regimen Dyslipidemia - continue Atorvastatin 80 mg and Ezetimibe 10 mg DM1 - stable with management per primary team ESRD - Per Nephrology Paroxysmal Atrial Fibrillation - occurred in 06/2022 during hospitalization - has had intermittent arrhythmia this admission - continues PO Amiodarone - rates have been controlled throughout - he is now in sinus rhythm - continue Amiodarone and Lopressor -s/p Heparin gtt to Warfarin bridge, today INR 2.64 DVT - h/o RLE in 2017 - was on apixaban -> heparin -> wafarin with mechanical valve -INR 2.64 today Hyponatremia -now up-trending, today 128 - on torsemide 100 mg BID - on fluid restriction - management per primary/nephrology team Manda Schaffer NP [facility] 10/28/2023 8:02 AM Cosigned by Ramirez Newberry MD at 10/28/2023 1:08 PM BUILDING ADMIN DING ADMIN DING ADMIN * Yolanda Campos PA - 10/27/2023 6:58 PM CST Cardiothoracic Surgery Progress Note Subjective Chief Complaint: Severe multivessel coronary artery disease, moderate/severe aortic valve stenosis;s/p coronary artery bypass grafting x 3, aortic valve replacement (On-X mechanical), and sternal plating on 10/17/23 Interval History: There were no significant issues overnight. The patient has no complaints but nursing staff reported increased pain this morning. Objective VS: BP 131/52 (BP Location: Right arm, Patient Position: Reclining) Pulse 61 Temp 36.8 ??C (98.2 ??F) (Oral) Resp 18 Ht 177.8 cm (5' 10 ) Wt 131.2 kg (289 lb 3.9 oz) SpO2 99% BMI 41.50 kg/m?? 24hr Min/Max: Temp Min: 36.6 ??C (97.8 ??F) Max: 36.9 ??C (98.4 ??F) Pulse Min: 55 Max: 64 BP Min: 115/51 Max: 154/66 Resp Min: 18 Max: 18 SpO2 Min: 96 % Max: 99 % Intake/Output Summary (Last 24 hours) at 10/27/2023 1859 Last data filed at 10/27/2023 0850 Gross per 24 hour Intake 281.76 ml Output 3630 ml Net -3348.24 ml Cardiac Telemetry: sinus rhythm Physical Exam: Gen: Awake and alert, sitting up in chair. No distress Lungs: Normal effort Heart: RRR Ext: 2++ lower extremity edema Skin: Sternal incision c/d/i Lab Review: Lab Results Component Value Date WBC 8.0 10/27/2023 HGB 7.5 (L) 10/27/2023 HCT 23.7 (L) 10/27/2023 LABPLAT 222 10/27/2023 SODIUM 123 (L) 10/27/2023 POTASSIUM 4.2 10/27/2023 CHLORIDE 85 (L) 10/27/2023 CO2 24 10/27/2023 ANIONGAP 14 10/27/2023 BUNSER 87 (H) 10/27/2023 CREATININE 10.09 (H) 10/27/2023 GLUCOSE 108 10/27/2023 GLUCOSE 192 10/27/2023 CALCIUM 8.7 10/27/2023 MAGNESIUM 2.3 10/27/2023 APTT 91 (H) 10/27/2023 INR 1.99 (H) 10/27/2023 PT 22.7 (H) 10/27/2023 Radiology Review: CXR: IMPRESSION: Right internal jugular central venous catheter terminates in the superior cavoatrial junction. Unchanged small left pleural effusion with associated atelectasis. No consolidation to suggest pneumonia. No pneumothorax. Cardiac mediastinal silhouette is stable. Assessment Severe multivessel coronary artery disease, moderate/severe aortic valve stenosis; s/p coronary artery bypass grafting x 3, aortic valve replacement (On- X mechanical), and sternal plating on 10/17/23 Acute on chronic systolic heart failure Hypertension Hyperlipidemia Type 1 diabetes mellitus ESRD on peritoneal dialysis Paroxysmal atrial fibrillation Sleep apnea Obesity GERD Acute blood loss anemia due to surgery Hyponatremia Plan ASA + Warfarin for anticoagulation, stop heparin infusion per Dr. Valero. INR 1.99 Metoprolol 12.5 mg BID for beta-umair therapy Amiodarone 200 mg for anti-arrhythmic therapy, change to daily Atorvastatin and Ezetimibe for lipid lowering therapy Torsemide 100 mg BID for diuresis, peritoneal dialysis nightly, Nephrology managing Home insulin pump resumed per Endocrinology Tylenol for pain control CPAP nightly Encouraged incentive spirometer use and increased activity Stress ulcer prophylaxis: Protonix Increased to norco for pain medication DVT prophylaxis: INR therapeutic PT/OT: Inpatient rehab currently recommended at discharge Plan reviewed with LESLY Pantoja 10/27/2023 DING ADMIN * Taylor Jorge, RD - 10/27/2023 2:33 PM CST Nutrition Follow-up Progress Note Encounter Date: 10/27/23 2:33 PM Nutrition Progress Summary: Patient is a 53 y.o. male. Admit Dx: CAD in [place] artery [I25.10]. Admitted on 10/13/2023. Patient's intake is adequate. Objective Dietary Orders (From admission, onward) Start Ordered 10/26/23 1235 Adult Diet Restricted; Consistent Carbohydrate; Renal; 1000mL = Diet 700/Nursing 300 Diet effective now Question Answer Comment ([facility]) Diet type Restricted Diabetic: Consistent Carbohydrate Renal: Renal Fluid restriction dietary / 24h: 1000mL = Diet 700/Nursing 300 10/26/23 1235 10/19/23 2100 Bedtime snack At bedtime Comments: If bedtime BG is less than 100mg/dl, give patient a 15 gram carbohydrate snack. 10/19/23 1908 10/19/23 1147 Oral Nutrition Supplements Select Supplement: Nepro - Any Flavor With Breakfast and Dinner Question: Select Supplement: Answer: Nepro - Any Flavor 10/19/23 1146 Anthropometrics Weight: 131.2 kg (289 lb 3.9 oz) Admission Weight : 123.1 kg Weight Change: 2.99 kg (6.61 lbs) IBW/kg (Calculated) : 75.3 kg Height: 177.8 cm (5' 10 ) Weight in (lb) to have BMI = 25: 173.9 BMI (Calculated): 41.5 Intake/Output Summary (Last 24 hours) at 10/27/2023 1433 Last data filed at 10/27/2023 0850 Gross per 24 hour Intake 1129.76 ml Output 3630 ml Net -2500.24 ml Medications and Lab Review: Scheduled Meds: al & mag hydroxide ajafuscplll-famnrkkgwrerfjl-cuvbvdbin-nystatin, 20 mL, swish & swallow, Q6H amiodarone, 200 mg, oral, BID aspirin, 81 mg, oral, Daily atorvastatin, 80 mg, oral, Daily calcitRIOL, 0.25 mcg, oral, Daily calcium acetate(phosphat bind), 1,334 mg, oral, TID with meals docusate sodium, 100 mg, oral, BID epoetin genia-epbx, 10,000 Units, subcutaneous, Weekly - 2100 ezetimibe, 10 mg, oral, Daily gentamicin, , topical, Daily [Held by Provider] insulin lispro, 0-10 Units, subcutaneous, QID (with meals & nightly) [Held by Provider] insulin lispro, 4 Units, subcutaneous, TID with meals [Held by Provider] insulin NPH, 15 Units, subcutaneous, Daily [Held by Provider] insulin NPH, 35 Units, subcutaneous, Nightly metoprolol tartrate, 12.5 mg, oral, BID pantoprazole DR, 40 mg, oral, Daily polyethylene glycol, 17 g, oral, Daily senna, 1 tablet, oral, BID sodium chloride 0.9%, 0.5-20 mL, intra-catheter, Q8H [facility] sodium chloride, 1 g, oral, TID with meals torsemide, 100 mg, oral, BID DIURETIC warfarin, 1.5 mg, oral, Once - 1800 Continuous Infusions: Dianeal low calcium-dextrose 2.5 % 6,000 mL with heparin 3,000 Units dialysis solution, Dianeal low calcium-dextrose 2.5 % 6,000 mL with heparin 3,000 Units dialysis solution, Extraneal 7.5% AMBU-FLEX 2,500 mL with heparin 1,250 Units dialysis solution, heparin, 0-33 Units/kg/hr, Last Rate: 12.7 Units/kg/hr (10/27/23 1058) INSULIN SUBCUTANEOUS PUMP insulin lispro, 0-25 Units PRN Meds: acetaminophen OR [DISCONTINUED] acetaminophen OR [DISCONTINUED] acetaminophen benzocaine-menthoL bisacodyL sodium chloride 0.9% dextrose OR dextrose glucagon guaiFENesin HYDROcodone-acetaminophen OR HYDROcodone-acetaminophen insulin lispro magnesium sulfate ondansetron potassium chloride ER OR [DISCONTINUED] potassium chloride potassium chloride ER OR [DISCONTINUED] potassium chloride ramelteon sodium chloride 0.9% Sodium Date Value Ref Range Status 10/27/2023 123 (L) 135 - 145 mmol/L Final Potassium, pl Date Value Ref Range Status 10/27/2023 4.2 3.3 - 4.9 mmol/L Final BUN Date Value Ref Range Status 10/27/2023 87 (H) 6 - 25 mg/dL Final Creatinine Date Value Ref Range Status 10/27/2023 10.09 (H) 0.80 - 1.30 mg/dL Final Phosphorus, pl Date Value Ref Range Status 10/27/2023 7.1 (H) 2.3 - 4.5 mg/dL Final Albumin Date Value Ref Range Status 10/27/2023 2.9 (L) 3.5 - 5.0 g/dL Final Magnesium Date Value Ref Range Status 10/27/2023 2.3 1.4 - 2.5 mg/dL Final Calcium Date Value Ref Range Status 10/27/2023 8.7 8.5 - 10.3 mg/dL Final Lab Results Component Value Date HGBA1C 8.1 (H) 10/16/2023 Nursing Assessment: Last BM Date: 10/24/23 Bowel Sounds (All Quadrants): Active Rex Scale Score: 20 Skin Integrity: Surgical incision, Blister Surgical Site 10/17/23 Mid-line Sternum sternotomy-Negative Pressure Wound Therapy Used: Yes Nutrition Needs Calculations: Calculated Energy Needs Using Equations Weight: 131.2 kg (289 lb 3.9 oz) Height: 177.8 cm (5' 10 ) Minute Ventilation (L/min): 9.7 L/min Estimated Protein Needs Type of Weight Used for Estimated Protein : [place] Protein Needs Based on g/k.4 Total Protein Estimated Needs (gm): 105.42 Kcal/kg Type of Weight Used for Estimated Kcals: [place] Kcal/k Total Kcal/kg Estimated Needs : 2259 Wt Readings from Last 10 Encounters: 10/27/23 131.2 kg (289 lb 3.9 oz) 06/29/22 118.1 kg (260 lb 6.4 oz) 01/21/21 132.9 kg (293 lb) 04/19/18 118.8 kg (262 lb) 12/14/17 121.6 kg (268 lb) 09/13/17 117 kg (258 lb) 09/08/17 116.7 kg (257 lb 6.2 oz) 07/19/17 116.6 kg (257 lb) 05/23/17 123.8 kg (273 lb) 05/04/17 124.3 kg (274 lb) ] Impression: Screened for follow-up. ESRD on PD. Recent POC glucose values: 255, 220, 333 mg/dL. Pt reporting good appetite. Recent PO intakes 100%. Tolerating Nepro supplement when cold. Suggested cup of ice for supplement when needed. Questioning his current diet and what foods he is allowed and not allowed. Reviewed renal, consistent carb diet with pt. Discussed limits with sodium, potassium, phosphorus, and fluids. 1000 [address] restriction in [address]. Provided pt with diet-related handouts (related to diets mentioned above). Pt expressing understanding and agreement to diet-related recommendations at this time. Plan: Monitor diet-related questions or concerns. Current Nutrition Issues: Nutrition Diagnosis 1: Increased nutrient needs (protein) Related to: Recent surgery Evidenced by: Physical finding Nutrition Plan: Interventions: Encouragement, Medical food supplement, Education, nutrition Monitoring and Evaluation: Plan of care, Labs, PO intake, Diet-related questions Goals: Patient/caregiver able to teach back understanding of role of diet in disease process prior to discharge Diet Instructions Adult Discharge Diet Diet Type: Restrict salt intake to less than 4000 mg per day Low fat intake Diabetic renal diet. Heart healthy diet. Limit foods high in Vitamin K while taking Coumadin. High protein intake. Taylor Jorge RD, LD DING ADMIN * Sophia Peoples COTA - 10/27/2023 1:25 PM CST Occupational Therapy 10/27/23 1325 General Session Type Treatment OT Received On 10/27/23 Safe Environment Arm band checked;Patient found sitting in chair;Gait belt utilized for all out of bed mobility Subjective Agreeable to Therapy Subjective Comment pt C/O fatigue, however very motivated Family/Caregiver Present Yes (Brother) Pain Assessment Pain Score (3 in chest and 4 in both calf's, RN was notified, left leg red and swollen with a quarter size blister) Static Standing Balance Static Standing-Balance Support Unilateral upper extremity supported Static Standing-Standing Surface Floor Static Standing-Level of Assistance Close supervision Grooming Grooming: Where assessed Standing at sink Grooming: Level of assistance Standby Assist Grooming: Assistance with Teeth care;Increased time to complete LE Dressing LE Dressing: Where assessed Chair LE Dressing: Level of assistance Maximum Assist LE Dressing: Assistance with Don/doff R sock;Don/doff L sock Transfer 1 Transfer Type 1 To and from Transfer to 1 Sit;Stand Transfer Device 1 Wheeled walker Transfer Level of Assistance 1 Minimum Assist (force production of trunk) Trials/Comments 1 verbal cues for hand placement pt holds on to walker to sit and to stand Cognition Overall Cognitive Status WFL Arousal/Alertness Alert;Appropriate responses to stimuli Orientation Oriented X4 (person, place, time, situation) Activity Tolerance Endurance Tolerates 30 min activity with multiple rests (pt requires frequent rest breaks during OT session, pt is very motivated) Other Comments Comments vitals pre activity HR 60, SpO2 94, BP 129/56. Post activity HR 68, SpO2 96, BP 150/55, HR66 Safe Environment End of Therapy Session Safe Environment End of Therapy Session Patient left in chair;Call light within reach;Overbed tablewithin reach Assessment Prognosis Good Problem List Decreased upper extremity strength;Decreased endurance;Visual deficit;Decreased functional mobility;Decreased ADL independence;Decreased IADL independence Recommendation/Plan OT Recommendation (S) Inpatient Rehab Facility Patient at high risk for Injury due to decreased ability to care for self;Injury due to balance deficits;Injury at home as patient has not returned to prior level of function;Falls Recommend Inpatient Rehab/Acute Rehab due to Ability to actively participate in intensive therapy 3hours/day, 5 days/week or 900 minutes per week;Highly motivated to participate in therapy;Not at baseline due to impaired ability to complete ADLs;Impaired ability to complete functional mobility;Requires greater than 25% physical assistance with most mobility tasks;Requires greater than 25% physical assistance with most ADL tasks;Requires multiple therapy disciplines to address functional deficits Treatment/Interventions during current admission ADL/IADL retraining;Balance Training;Bed mobility;Endurance training;Functional activity;Functional mobility training;Functional transfer training Progress during current admission Progressing toward goals Multi-Disciplinary Problems (from Occupational Therapy) Active Problems Problem: OT Misc Start Date: 10/19/23 Goal Start Date Expected End Date End Date OT LTG 1 Pt will complete UE/LE dressing modified independent. 10/19/23 11/02/23 -- Goal Start Date Expected End Date End Date OT LTG 2 Pt will complete bathing with transfer modified independent. 10/19/23 11/02/23 -- Goal Start Date Expected End Date End Date OT LTG 3 Pt will complete toileting with transfer modified independent. 10/19/23 11/02/23 -- Goal Start Date Expected End Date End Date OT LTG 4 Pt will complete grooming at sink modified independent. 10/19/23 11/02/23 -- Goal Start Date Expected End Date End Date OT LTG 5 Pt will adhere to sternal precautions while completing transfers, mobility, and ADL tasks.10/19/23 11/02/23 -- Education: Patient has been educated on the role of OT, safety, precautions, ADL training, mobilitytraining, home exercise program, body mechanics, energy conservation, and use of adaptive equipment/DME. Education completed via verbal instruction and return demonstration. Patient needs ongoing reinforcement Cosigned by Suzie Aiken OT at 10/27/2023 2:23 PM BUILDING ADMIN DING ADMIN DING ADMIN * Joselin Strickland MD - 10/27/2023 12:02 PM CST HV Daily Progress SUBJECTIVE: Patient sitting comfortably in bed no new events overnight OBJECTIVE: Vitals: 10/27/23 0405 10/27/23 0753 10/27/23 0827 10/27/23 0850 BP: 119/56 137/74 BP Location: Right arm Right arm Patient Position: Sitting Pulse: 59 64 61 62 Resp: 18 18 Temp: 36.6 ??C (97.8 ??F) 36.9 ??C (98.4 ??F) TempSrc: Oral Oral SpO2: 99% 96% Weight: 131.2 kg (289 lb 3.9 oz) Height: Intake/Output Summary (Last 24 hours) at 10/27/2023 1202 Last data filed at 10/27/2023 0850 Gross per 24 hour Intake 1129.76 ml Output 3630 ml Net -2500.24 ml Exam General appearance: Alert, obese Lungs: Decreased breath sounds Heart: Regular rate and rhythm Abdomen: Soft obese Extremities: 3+ edema Current Facility-Administered Medications Medication Dose Route Frequency Last Rate Last Admin acetaminophen (TYLENOL) tablet 500 mg 500 mg oral Q6H PRN al & mag hydroxide hsjdkgunwwf-ibzevipbilfrwhh-ankdghvwl-nystatin (MAGIC MOUTHWASH) oral suspension 1-1-1-1 20 mL 20 mL swish & swallow Q6H 20 mL at 10/27/23 0829 amiodarone (PACERONE) tablet 200 mg 200 mg oral BID 200 mg at 10/27/23827 aspirin chewable tablet 81 mg 81 mg oral Daily 81 mg at 10/27/23827 atorvastatin (LIPITOR) tablet 80 mg 80 mg oral Daily 80 mg at 10/27/23827 benzocaine-menthoL (CHLORASEPTIC) lozenge 1 lozenge 1 lozenge mouth/throat Q4H PRN 1 lozenge at 10/27/23 0814 bisacodyL (DULCOLAX) suppository 10 mg 10 mg rectal Daily PRN calcitRIOL (ROCALTROL) capsule 0.25 mcg 0.25 mcg oral Daily 0.25 mcg at 10/27/23827 calcium acetate(phosphat bind) (PHOSLO) capsule 1,334 mg 1,334 mg oral TID with meals 1,334 mg at 10/27/23 115 Carrier Fluids for Secondary Infusion - 0.9% Sodium Chloride 30 mL intravenous PRN dextrose (GLUTOSE) 40 % gel 15 g 15 g oral Q15 Min PRN Or dextrose (D10W) 10% bolus 250 mL 250 mL intravenous Q15 Min PRN Dianeal low calcium-dextrose 2.5 % 6,000 mL with heparin 3,000 Units dialysis solution intraperitoneal Continuous New Bag at 10/26/232032 Dianeal low calcium-dextrose 2.5 % 6,000 mL with heparin 3,000 Units dialysis solution intraperitoneal Continuous New Bag at 10/26/232033 docusate sodium (COLACE) capsule 100 mg 100 mg oral BID 100 mg at 10/27/23827 epoetin genia-epbx (RETACRIT) (10,000 unit/mL) injection 10,000 Units 10,000 Units subcutaneous Weekly - 2100 Extraneal 7.5% AMBU-FLEX 2,500 mL with heparin 1,250 Units dialysis solution intraperitoneal Continuous New Bag at 10/26/232033 ezetimibe (ZETIA) tablet 10 mg 10 mg oral Daily 10 mg at 10/27/23827 gentamicin (GARAMYCIN) 0.1 % cream topical Daily Given at 10/26/232032 glucagon injection 1 mg 1 mg intramuscular Q30 Min PRN guaiFENesin (ROBITUSSIN) 20 mg/mL oral liquid 200 mg 200 mg oral Q4H PRN 200 mg at 10/24/23 0745 heparin in 0.45% sodium chloride 25,000 units/250 mL (100 units/mL) infusion (premix) 0-33 Units/kg/hr intravenous Titrated 16.47 mL/hr at 10/27/23 1058 12.7 Units/kg/hr at 10/27/23 1058 HYDROcodone-acetaminophen (NORCO) 5-325 mg per tablet 1 tablet 1 tablet oral Q4H PRN 1 tablet at 10/27/23 1152 Or HYDROcodone-acetaminophen (NORCO) 5-325 mg per tablet 2 tablet 2 tablet oral Q4H PRN [Held by Provider] insulin lispro (HumaLOG, ADMELOG) 100 unit/mL injection 0-10 Units 0-10 Units subcutaneous QID (with meals & nightly) 4 Units at 10/23/23 0803 [Held by Provider] insulin lispro (HumaLOG, ADMELOG) 100 unit/mL injection 4 Units 4 Units subcutaneous TID with meals 4 Units at 10/23/23 0803 insulin lispro (HumaLOG, ADMELOG) 100 unit/mL injection 5 Units 5 Units subcutaneous Once PRN [Held by Provider] insulin NPH (HumuLIN N, NovoLIN N) 100 unit/mL injection 15 Units 15 Units subcutaneous Daily 15 Units at 10/23/23 0803 [Held by Provider] insulin NPH (HumuLIN N, NovoLIN N) 100 unit/mL injection 35 Units 35 Units subcutaneous Nightly INSULIN SUBCUTANEOUS PUMP insulin lispro (HumaLOG) 100 UNIT/ML patient supplied pump 0-25 Units 0-25 Units subcutaneous Continuous 15.45 Units at 10/27/23 0833 magnesium sulfate 2 g/50 mL in water (premix) 2 g 2 g intravenous Q2H PRN metoprolol tartrate (LOPRESSOR) immediate release tablet 12.5 mg 12.5 mg oral BID 12.5 mg at 10/27/23 0829 ondansetron (ZOFRAN) injection 4 mg 4 mg intravenous Q6H PRN 4 mg at 10/25/[address] (PROTONIX) extended release tablet 40 mg 40 mg oral Daily 40 mg at 10/27/23 0829 polyethylene glycol (MIRALAX) packet 17 g 17 g oral Daily 17 g at 10/22/23 0813 potassium chloride ER (KLOR-CON) extended release tablet 20 mEq 20 mEq oral Q4H PRN potassium chloride ER (KLOR-CON) extended release tablet 40 mEq 40 mEq oral Q4H PRN ramelteon (ROZEREM) tablet 8 mg 8 mg oral Nightly PRN 8 mg at 10/26/23 2257 senna (SENOKOT) tablet 1 tablet 1 tablet oral BID 1 tablet at 10/27/23 0828 sodium chloride 0.9% flush 0.5-20 mL 0.5-20 mL intra-catheter Q8H ASHLEY 10 mL at 10/27/23 0604 sodium chloride 0.9% flush 0.5-20 mL 0.5-20 mL intra-catheter PRN 10 mL at 10/25/23 0914 sodium chloride tablet 1 g 1 g oral TID with meals 1 g at 10/27/23 1058 torsemide (DEMADEX) tablet 100 mg 100 mg oral BID DIURETIC 100 mg at 10/27/23 0828 warfarin (COUMADIN) tablet 1.5 mg 1.5 mg oral Once - 1800 LABS: Recent Labs Lab Units 10/27/23 0230 WBC K/cumm 8.0 HEMOGLOBIN g/dL 7.5* HEMATOCRIT % 23.7* PLATELETS K/cumm 222 Recent Labs Lab Units 10/27/23 1154 10/27/23 0828 10/27/23 0230 SODIUM mmol/L -- -- 123* POTASSIUM PLASMA mmol/L -- -- 4.2 CHLORIDE mmol/L -- -- 85* CO2 mmol/L -- -- 24 ANIONGAP mmol/L -- -- 14 GLUCOSE mg/dL -- -- 192 POC GLUCOSE MONITOR mg/dL 232* < > -- BUN SERUM mg/dL -- -- 87* CREATININE mg/dL -- -- 10.09* CALCIUM mg/dL -- -- 8.7 ALBUMIN g/dL -- -- 2.9* < > = values in this interval not displayed. Lab Results Component Value Date BNP 113 (H) 03/21/2017 BNP 13 11/05/2013 Lab Results Component Value Date TROPONINI 0.03 03/21/2017 TROPONINI 0.03 03/21/2017 TROPONINI <0.03 11/06/2013 Lab Results Component Value Date HGBA1C 8.1 (H) 10/16/2023 HGBA1C 7.8 (H) 06/04/2022 Lab Results Component Value Date TSH 13.20 (H) 10/27/2023 TSH 0.80 03/21/2017 EKG: Results for orders placed during the hospital encounter of 10/13/23 ECG 12 lead Narrative Vent Rate: 100 bpm RR Interval: 599 msec GA Interval: 0 msec QRS Duration: 145 msec QT Interval: 394 msec QTC Interval: 451 msec P-R-T [place]: 0 - -9 - 132 degrees IMPRESSION: NORMAL SINUS RHYTHM [REASON: NORMAL P AXIS, GA, RATE \T\ RHYTHM] LEFT BUNDLE BRANCH BLOCK OCCASIONAL PVC Electronically Signed By: Jesus Huerta MD ASSESSMENT/PLAN: CAD - prior SC with multiple PCI - [facility] showed multivessel disease - LVEF dropped to ~25% (was 65% in 05/2022) - s/p CABG x3 and AVR on 10/17/23 with BRICE to LAD, SVG to OM, SVG to PDA Aortic Stenosis - AVR during CABG with 25 mm OnX mechanical prosthesis - warfarin dosing per pharmacy - INR 1.99 today Hypertension - controlled on current regimen Dyslipidemia - continue Atorvastatin 80 mg and Ezetimibe 10 mg DM1 - stable with management per primary team ESRD - Per Nephrology Paroxysmal Atrial Fibrillation - occurred in 06/2022 during hospitalization - has had intermittent arrhythmia this admission, but now in sinus rhythm - continues PO Amiodarone - rates have been controlled throughout - he is now in sinus rhythm - continue Amiodarone and Lopressor - On Heparin gtt to Warfarin bridge DVT - h/o RLE in 2017 - was on apixaban -> heparin -> wafarin with mechanical valve Hyponatremia - down-trending - on torsemide 100 mg BID - on fluid restriction - management per primary/nephrology team Joselin Strickland MD, [facility] [phone] [facility] 10/27/2023 12:02 PM DING ADMIN * Fernandez Carranza MD - 10/27/2023 9:44 AM CST Images from the original note were not included. Nephrology Juvenal Garvin Jr. - 1970 Primary : Aditya Correa MD History and interval events: 53-year-old gentleman with history of type 1 diabetes mellitus on insulin pump, CHF, CAD, ESRD on peritoneal dialysis initially presented to [facility] in [facility] on October 09 for symptoms of general malaise for the past 4 days prior to admission. Patient was having symptoms of nausea with dry heaves. He presented hemodynamically stable. His glucose was measured to be 584, beta hydroxybutyrate 2.9 with an anion gap of 19. Patient was transferred to the ICU for insulin dripand DKA management. During this hospitalization his troponin was measured to be elevated prompting a cardiology consultation which lead to a [facility]. Results were notable for severe CAD and he was recommended to seek surgical revascularization evaluation prompting transfer to this facility. He missed his peritoneal dialysis last evening during transfer. He has been on peritoneal dialysis for approximately 2 years and tolerating this well under the care of Dr. Reyes. He does make some urine. S/P 3v CABG and Mech AVR 10/17 Warfarin started for history of RLE DVT. PD going well - I had increased his last full to 2 L of icodextran initial drain of 1425 with UF of 1715 No new complaints Sodium level to drop further to 123 Serum osmolarity was 313 Interestingly TSH was elevated at 13.2 Medication: Current medication list reviewed Intake and Output Summary: Intake/Output Summary (Last 24 hours) at 10/27/2023 0944 Last data filed at 10/27/2023 0850 Gross per 24 hour Intake 1104.76 ml Output 3630 ml Net -2525.24 ml Vital Signs: Vitals: 10/27/23 0850 BP: Pulse: 62 Resp: Temp: SpO2: Physical Exam: General Sitting up and eating breakfast H&N ?JVD Eyes Pupils symmetrical with no scleral icterus Chest CTA Heart S1S2 reg Abdomen Soft and non tender PD catheter present Extremeties +2 lower extremity edema Skin No rash Neuro A little somnolent today Mental status CBC: Recent Labs Lab Units 10/27/23 0230 10/26/23 0229 10/25/23 0034 WBC K/cumm 8.0 7.9 8.2 HEMOGLOBIN g/dL 7.5* 7.9* 7.8* HEMATOCRIT % 23.7* 24.7* 24.7* PLATELETS K/cumm 222 209 202 RFP: Recent Labs Lab Units 10/27/23 0230 10/26/23 0229 10/25/23 0034 10/24/23 0103 SODIUM mmol/L 123* 124* 128* 127* POTASSIUM PLASMA mmol/L 4.2 4.2 4.0 4.2 CHLORIDE mmol/L 85* 84* 86* 86* CO2 mmol/L 24 23 21* 21* BUN SERUM mg/dL 87* 85* 86* 90* CREATININE mg/dL 10.09* 9.95* 10.57* 11.24* CALCIUM mg/dL 8.7 8.6 9.0 8.6 PHOSPHORUS PLASMA mg/dL 7.1* 6.5* 6.5* 6.1* ALBUMIN g/dL 2.9* 3.0* 2.9* 2.7* Impression and Recommendations: 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 It appears that he does have some residual renal function. He has no history of thyroid disease. Potassium levels have been stable throughout hospitalization and not low. Increased icodextran volume in attempt to ultrafiltrate more - conversely resulted carie drop in his sodium Continue PD as CCPD Reduced icodextran back to 1 L last fill Limit free water intake Oral loop diuretic Start salt tablets 1 g t.i.d. Bowel regimen CORRINE PO4 binder with meals Repeat BMP this evening Will check free T4 and T3 A.m. labs Dr. Walker will see this weekend Fernandez Carranza MD [facility]: MD Chula Domínguez, MD Renny Flood PA Derek Larson, MD FASN Rose Mattli, NP Rohan Devanpalli, MD Candace Shirley, NP [address] - [address] [place], [place] [address] [phone] - Office [phone] - Fax DING ADMIN DING ADMIN * Guerline Rodriguez PA - 10/26/2023 4:12 PM CST Cardiothoracic Surgery Progress Note Subjective Chief Complaint: Severe multivessel coronary artery disease, moderate/severe aortic valve stenosis;s/p coronary artery bypass grafting x 3, aortic valve replacement (On-X mechanical), and sternal plating on 10/17/23 Interval History: No issues overnight. His stamina is improving but still remains low and he feels very edematous. He is on room air and his pain is currently under good control. He remains on a Heparin infusion. Objective VS: BP 142/54 (BP Location: Right arm, Patient Position: Sitting) Pulse 60 Temp 36.9 ??C (98.4 ??F) (Oral) Resp 18 Ht 177.8 cm (5' 10 ) Wt 128.2 kg (282 lb 10.1 oz) SpO2 98% BMI 40.55 kg/m?? 24hr Min/Max: Temp Min: 36.4 ??C (97.6 ??F) Max: 37.1 ??C (98.7 ??F) Pulse Min: 57 Max: 64 BP Min: 110/62 Max: 164/61 Resp Min: 18 Max: 18 SpO2 Min: 97 % Max: 98 % Intake/Output Summary (Last 24 hours) at 10/26/2023 1612 Last data filed at 10/26/2023 1445 Gross per 24 hour Intake 480 ml Output 3534 ml Net -3054 ml Cardiac Telemetry: sinus rhythm Physical Exam: Gen: A&O, NAD Lungs: Diminished breath sounds Heart: RRR Ext: Warm, 2+ lower extremity edema Skin: Sternal incision c/d/i Lab Review: Lab Results Component Value Date WBC 7.9 10/26/2023 HGB 7.9 (L) 10/26/2023 HCT 24.7 (L) 10/26/2023 LABPLAT 209 10/26/2023 SODIUM 124 (L) 10/26/2023 POTASSIUM 4.2 10/26/2023 CHLORIDE 84 (L) 10/26/2023 CO2 23 10/26/2023 ANIONGAP 17 (H) 10/26/2023 BUNSER 85 (H) 10/26/2023 CREATININE 9.95 (H) 10/26/2023 GLUCOSE 203 (H) 10/26/2023 GLUCOSE 206 (H) 10/26/2023 CALCIUM 8.6 10/26/2023 MAGNESIUM 2.2 10/26/2023 APTT 74 (H) 10/26/2023 INR 1.70 (H) 10/26/2023 PT 19.4 (H) 10/26/2023 Radiology Review: XR Chest 1 View - Portable - in AM [[id number]] Collected: 10/26/2340 Order Status: Completed Updated: 10/26/23742 Narrative: EXAMINATION: 1 view chest radiograph Impression: Comparison chest radiograph 10/25/2023 at 6:39 AM. The patient is status post a median sternotomy, sternal wires and plates are aligned. Surgical clips are present. A right internal jugular catheter is in place, tip overlies the superior vena cava. There is an unchanged small left pleural effusion with adjacent mild left basilar atelectasis. Thickening along the right minor fissure which may represent scarring and/or atelectasis. Mild right basilar airspace opacities may represent aspiration or atelectasis, new compared to prior examination. No definite right pleural effusion. No pneumothorax. No pulmonary edema. Heart size and mediastinal contours are unchanged. Assessment Severe multivessel coronary artery disease, moderate/severe aortic valve stenosis; s/p coronary artery bypass grafting x 3, aortic valve replacement (On- X mechanical), and sternal plating on 10/17/23 Acute on chronic systolic heart failure Hypertension Hyperlipidemia Type 1 diabetes mellitus ESRD on peritoneal dialysis Paroxysmal atrial fibrillation Sleep apnea Obesity GERD Acute blood loss anemia due to surgery Hyponatremia Plan ASA + Warfarin for anticoagulation, INR 1.70, continue Heparin infusion until INR is therapeutic Metoprolol 12.5 mg BID for beta-umair therapy Amiodarone 200 mg BID for anti-arrhythmic therapy Atorvastatin and Ezetimibe for lipid lowering therapy Torsemide 100 mg BID for diuresis, peritoneal dialysis nightly, Nephrology managing Home insulin pump resumed per Endocrinology Tylenol for pain control CPAP nightly Encouraged incentive spirometer use and increased activity Stress ulcer prophylaxis: Protonix DVT prophylaxis: Heparin infusion PT/OT: Inpatient rehab currently recommended at discharge Plan reviewed with LESLY Larose 10/26/2023 DING ADMIN * Pradeep Reeves NP - 10/26/2023 2:16 PM CST Cardiology Daily Progress - SL SUBJECTIVE: Mr. Garvin is lying in bed. He complains of incisional pain. Breathing is okay. Edema present. Review of Systems: Review of systems per HPI and otherwise all other systems are negative OBJECTIVE: Scheduled Medications Medication Dose Route Frequency acetaminophen (TYLENOL) tablet 1,000 mg 1,000 mg oral Q6H ASHLEY al & mag hydroxide jiiqlhtkrmm-saovawutusdokue-nfzfrevjg-nystatin (MAGIC MOUTHWASH) oral suspension 1-1-1-1 20 mL 20 mL swish & swallow Q6H amiodarone (PACERONE) tablet 200 mg 200 mg oral BID aspirin chewable tablet 81 mg 81 mg oral Daily atorvastatin (LIPITOR) tablet 80 mg 80 mg oral Daily calcitRIOL (ROCALTROL) capsule 0.25 mcg 0.25 mcg oral Daily calcium acetate(phosphat bind) (PHOSLO) capsule 1,334 mg 1,334 mg oral TID with meals docusate sodium (COLACE) capsule 100 mg 100 mg oral BID epoetin genia-epbx (RETACRIT) (10,000 unit/mL) injection 10,000 Units 10,000 Units subcutaneous Weekly - 2100 ezetimibe (ZETIA) tablet 10 mg 10 mg oral Daily gentamicin (GARAMYCIN) 0.1 % cream topical Daily [Held by Provider] insulin lispro (HumaLOG, ADMELOG) 100 unit/mL injection 0-10 Units 0-10 Units subcutaneous QID (with meals & nightly) [Held by Provider] insulin lispro (HumaLOG, ADMELOG) 100 unit/mL injection 4 Units 4 Units subcutaneous TID with meals [Held by Provider] insulin NPH (HumuLIN N, NovoLIN N) 100 unit/mL injection 15 Units 15 Units subcutaneous Daily [Held by Provider] insulin NPH (HumuLIN N, NovoLIN N) 100 unit/mL injection 35 Units 35 Units subcutaneous Nightly metoprolol tartrate (LOPRESSOR) immediate release tablet 12.5 mg 12.5 mg oral BID pantoprazole DR (PROTONIX) extended release tablet 40 mg 40 mg oral Daily polyethylene glycol (MIRALAX) packet 17 g 17 g oral Daily senna (SENOKOT) tablet 1 tablet 1 tablet oral BID sodium chloride 0.9% flush 0.5-20 mL 0.5-20 mL intra-catheter Q8H ASHLEY torsemide (DEMADEX) tablet 100 mg 100 mg oral BID DIURETIC warfarin (COUMADIN) tablet 3 mg 3 mg oral Once - 1800 Continuous Medications Medication Dose Last Rate Dianeal low calcium-dextrose 2.5 % 6,000 mL with heparin 3,000 Units dialysis solution Dianeal low calcium-dextrose 2.5 % 6,000 mL with heparin 3,000 Units dialysis solution Extraneal 7.5% AMBU-FLEX 2,500 mL with heparin 1,250 Units dialysis solution heparin in 0.45% sodium chloride 25,000 units/250 mL (100 units/mL) infusion (premix) 0-33 Units/kg/hr 12.7 Units/kg/hr (10/25/23 5442) INSULIN SUBCUTANEOUS PUMP insulin lispro (HumaLOG) 100 UNIT/ML patient supplied pump 0-25 Units 0-25 Units PRN Medications Medication Dose Route Frequency Last Admin benzocaine-menthoL (CHLORASEPTIC) lozenge 1 lozenge 1 lozenge mouth/throat Q4H PRN 1 lozenge at 10/26/23 1335 bisacodyL (DULCOLAX) suppository 10 mg 10 mg rectal Daily PRN Carrier Fluids for Secondary Infusion - 0.9% Sodium Chloride 30 mL intravenous PRN dextrose (GLUTOSE) 40 % gel 15 g 15 g oral Q15 Min PRN Or dextrose (D10W) 10% bolus 250 mL 250 mL intravenous Q15 Min PRN glucagon injection 1 mg 1 mg intramuscular Q30 Min PRN guaiFENesin (ROBITUSSIN) 20 mg/mL oral liquid 200 mg 200 mg oral Q4H PRN 200 mg at 10/24/23 0745 insulin lispro (HumaLOG, ADMELOG) 100 unit/mL injection 5 Units 5 Units subcutaneous Once PRN magnesium sulfate 2 g/50 mL in water (premix) 2 g 2 g intravenous Q2H PRN ondansetron (ZOFRAN) injection 4 mg 4 mg intravenous Q6H PRN 4 mg at 10/25/23 0913 potassium chloride ER (KLOR-CON) extended release tablet 20 mEq 20 mEq oral Q4H PRN potassium chloride ER (KLOR-CON) extended release tablet 40 mEq 40 mEq oral Q4H PRN ramelteon (ROZEREM) tablet 8 mg 8 mg oral Nightly PRN 8 mg at 10/25/23 2105 sodium chloride 0.9% flush 0.5-20 mL 0.5-20 mL intra-catheter PRN 10 mL at 10/25/23 0914 traMADoL (ULTRAM) tablet 50 mg 50 mg oral Q8H PRN 50 mg at 10/26/23 1332 Recent Labs Lab Units 10/26/23 1157 10/26/23 0800 10/26/23 0229 10/25/23 0423 10/25/23 0034 10/24/23 0744 10/24/23 0103 10/19/23 1625 10/19/23 1444 SODIUM mmol/L -- -- 124* -- 128* -- 127* < > -- POTASSIUM PLASMA mmol/L -- -- 4.2 -- 4.0 -- 4.2 < > -- CHLORIDE mmol/L -- -- 84* -- 86* -- 86* < > -- CO2 mmol/L -- -- 23 -- 21* -- 21* < > -- ANIONGAP mmol/L -- -- 17* -- 21* -- 20* < > -- GLUCOSE mg/dL -- -- 206* -- 97 -- 143 < > -- POC GLUCOSE MONITOR mg/dL 203* 90 -- < > -- < > -- < > -- BUN SERUM mg/dL -- -- 85* -- 86* -- 90* < > -- CREATININE mg/dL -- -- 9.95* -- 10.57* -- 11.24* < > -- CALCIUM mg/dL -- -- 8.6 -- 9.0 -- 8.6 < > -- ALBUMIN g/dL -- -- 3.0* -- 2.9* -- 2.7* < > 3.0* ALK PHOS Units/L -- -- -- -- -- -- -- -- 104 ALT Units/L -- -- -- -- -- -- -- -- 9 AST Units/L -- -- -- -- -- -- -- -- 39 BILIRUBIN TOTAL mg/dL -- -- -- -- -- -- -- -- 0.3 MAGNESIUM mg/dL -- -- 2.2 -- 2.3 -- 2.2 < > -- < > = values in this interval not displayed. Recent Labs Lab Units 10/26/2322810/25/23 0034 10/24/23 0103 WBC K/cumm 7.9 8.2 9.3 HEMOGLOBIN g/dL 7.9* 7.8* 7.6* HEMATOCRIT % 24.7* 24.7* 24.4* PLATELETS K/cumm 209 202 184 Recent Labs Lab Units 10/26/2322810/25/23 2115 10/25/23 1448 10/25/23 0648 10/25/23 0033 10/24/23 1715 10/24/23 0103 PROTIME (PT) sec 19.4* -- -- -- 18.5* -- 18.2* INR 1.70* -- -- -- 1.62* -- 1.60* APTT sec 74* 78* 72* < > 58* < > -- < > = values in this interval not displayed. Intake/Output Summary (Last 24 hours) at 10/26/2023 1417 Last data filed at 10/26/2023 0710 Gross per 24 hour Intake -- Output 3534 ml Net -3534 ml Wt Readings from Last 3 Encounters: 10/26/23 128.2 kg (282 lb 10.1 oz) 06/29/22 118.1 kg (260 lb 6.4 oz) 01/21/21 132.9 kg (293 lb) Patient Vitals for the past 24 hrs: BP Temp Temp src Pulse Resp SpO2 Weight 10/26/23 1211 142/54 36.9 ??C (98.4 ??F) Oral 60 18 98 % -- 10/26/23 1045 -- -- -- -- -- -- 128.2 kg (282 lb 10.1 oz) 10/26/23 0812 164/61 36.4 ??C (97.6 ??F) Oral 61 18 97 % -- 10/26/23 0427 133/56 36.8 ??C (98.3 ??F) -- 57 18 98 % -- 10/26/23 0100 110/62 -- -- 60 18 98 % -- 10/25/232057 -- -- -- 63 -- -- -- 10/25/232019 136/55 37.1 ??C (98.7 ??F) Oral 64 18 98 % -- 10/25/23 1501 126/66 36.6 ??C (97.9 ??F) Oral -- 16 98 % -- Telemetry: sinus rhythm Exam: General: In no apparent distress Neuro: Alert and oriented x 3, moves all extremities well HEENT: Normocephalic, atraumatic Lungs: Symmetric, unlabored, clear to auscultation bilaterally Heart: S1,S2, regular rate & rhythm, S1 S2 +mech click Abdomen: Soft, non-tender, non-distended Extremities: + LE edema Neurologic: No focal deficits ASSESSMENT/PLAN: CAD - prior SC with multiple PCI - [facility] showed multivessel disease - LVEF dropped to ~25% (was 65% in 05/2022) - s/p CABG x3 and AVR on 10/17/23 with BRICE to LAD, SVG to OM, SVG to PDA Aortic Stenosis - AVR during CABG with 25 mm OnX mechanical prosthesis - warfarin dosing per pharmacy Hypertension - controlled on current regimen Dyslipidemia - continue Atorvastatin 80 mg and Ezetimibe 10 mg DM1 - stable with management per primary team ESRD - stable on PD per Nephrology Paroxysmal Atrial Fibrillation - occurred in 06/2022 during hospitalization - has had intermittent arrhythmia this admission, but now in sinus rhythm - continues PO Amiodarone - rates have been controlled throughout - he is now in sinus rhythm - continue Amiodarone and Lopressor - On Heparin gtt to Warfarin bridge DVT - h/o RLE in 2017 - was on apixaban -> heparin -> wafarin with mechanical valve Hyponatremia - down-trending - on torsemide 100 mg BID - on PD - rec free fluid restriction - management per primary/nephrology team SHAMIKA Donald [facility] 10/26/2023 2:17 PM DING ADMIN * Fernandez Carranza MD - 10/26/2023 12:29 PM CST Images from the original note were not included. Nephrology Juvenal Gar[place] Jr. - 1970 Primary : Aditya Correa MD History and interval events: 53-year-old gentleman with history of type 1 diabetes mellitus on insulin pump, CHF, CAD, ESRD on peritoneal dialysis initially presented to [facility] in [facility] on October 09 for symptoms of general malaise for the past 4 days prior to admission. Patient was having symptoms of nausea with dry heaves. He presented hemodynamically stable. His glucose was measured to be 584, beta hydroxybutyrate 2.9 with an anion gap of 19. Patient was transferred to the ICU for insulin dripand DKA management. During this hospitalization his troponin was measured to be elevated prompting a cardiology consultation which lead to a C. Results were notable for severe CAD and he was recommended to seek surgical revascularization evaluation prompting transfer to this facility. He missed his peritoneal dialysis last evening during transfer. He has been on peritoneal dialysis for approximately 2 years and tolerating this well under the care of Dr. Reyes. He does make some urine. S/P 3v CABG and Mech AVR 10/17 Warfarin started for history of RLE DVT. PD going well - initial drain of 1590 with UF of 1794 - good UF based on these numbers No new complaints Medication: Current medication list reviewed Intake and Output Summary: Intake/Output Summary (Last 24 hours) at 10/26/2023 1229 Last data filed at 10/26/2023 0710 Gross per 24 hour Intake 240 ml Output 3534 ml Net -3294 ml Vital Signs: Vitals: 10/26/23 0812 BP: 164/61 Pulse: 61 Resp: 18 Temp: 36.4 ??C (97.6 ??F) SpO2: 97% Physical Exam: General Sitting up and eating breakfast H&N ?JVD Eyes Pupils symmetrical with no scleral icterus Chest CTA Heart S1S2 reg Abdomen Soft and non tender PD catheter present Extremeties +2 lower extremity edema Skin No rash Neuro A little somnolent today Mental status CBC: Recent Labs Lab Units 10/26/2322810/25/23 0034 10/24/23 0103 WBC K/cumm 7.9 8.2 9.3 HEMOGLOBIN g/dL 7.9* 7.8* 7.6* HEMATOCRIT % 24.7* 24.7* 24.4* PLATELETS K/cumm 209 202 184 RFP: Recent Labs Lab Units 10/26/2322810/25/23 0034 10/24/23 0103 10/23/23 0153 SODIUM mmol/L 124* 128* 127* 132* POTASSIUM PLASMA mmol/L 4.2 4.0 4.2 4.3 CHLORIDE mmol/L 84* 86* 86* 91* CO2 mmol/L 23 21* 21* 20* BUN SERUM mg/dL 85* 86* 90* 91* CREATININE mg/dL 9.95* 10.57* 11.24* 11.59* CALCIUM mg/dL 8.6 9.0 8.6 9.0 PHOSPHORUS PLASMA mg/dL 6.5* 6.5* 6.1* 6.2* ALBUMIN g/dL 3.0* 2.9* 2.7* 2.6* Impression and Recommendations: 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 [facility] - [address] [place], [place] [id number] [phone] - Office [phone] - Fax DING ADMIN * Nusrat Us [facility] - 10/26/2023 11:17 AM CST Warfarin monitoring Lab Results Component Value Date/Time INR 1.70 (H) 10/26/2023 02:29 AM HGB 7.9 (L) 10/26/2023 02:29 AM HGB 8.1 (L) 10/17/2023 12:26 PM HCT 24.7 (L) 10/26/2023 02:29 AM HCT 30.0 (L) 06/05/2022 03:22 PM LABPLAT 209 10/26/2023 02:29 AM Warfarin dose today: 3 mg Expect INR to continue to increase tomorrow. Giving a higher dose of 3 mg today with the expectation that this will increase his INR in a couple of days, but will cautiously monitor based on his previous supratherapeutic response to 3 mg doses. DING ADMIN * Gustavo Swan, PT - 10/26/2023 10:10 AM CST Physical Therapy Treatment 10/26/23 1010 PT Last Visit Session Type Treatment PT Received On 10/26/23 Safe Environment Arm band checked;Patient found in supine;Gait belt utilized for all out of bed mobility Subjective Agreeable to Therapy Subjective Comment Patient found laying supine in bed at the start of treatment session. Patient states that he just finished taking a nap, is agreeable to mobilization. Additional Pertinent History 53-year-old man with a history of ESRD on PD, CAD s/p PCI, SC, and DVTon chronic anticoagulation, Type 1 DM, HTN who presented to [facility] initially on 10/09/23 with general malaise and found to be in DKA and admitted to ICU. During hospitalization found to have elevated Troponins prompted cardiology evaluation and C significant for multivessel CAD and subse quently also found aortic stenosis. Transferred to [facility] 10/14/23 for surgical evaluation. Patient isnow s/p CABG x 3 (SVG-PDA, SVG-OM, BRICE-LAD) and mechanical AVR (25 Bello) by Dr. Valero on 10/17/23. Family/Caregiver Present No Precautions Precautions Bed/Chair Alarm;Cardiac sternal;Fall risk Precaution Handout Issued Yes Precaution Comments Recalls most sternal precautions. Still requires some reinforcement during taskto maintain. Activity Tolerance Endurance Tolerates 30 min activity with multiple rests Activity Tolerance Comments VS Stable. BP 144/72, 64 BPM, 98% SpO2 on RA. Post ambulation HR 72, 99% SpO2 on RA. Pain Assessment Pain Assessment 0-10 Pain Score 4 Patient's Stated Pain Goal No pain Pain Type Surgical pain Chronic Pain Precipitating Factors At Rest Chronic Pain Alleviating Factors Medication;Relaxation Pain Location Back (Lumbar) Pain Orientation Generalized Pain Descriptors Aching Pain Frequency Constant/continuous Pain Onset Ongoing Clinical Progression Not changed Pain Interventions Medication (See MAR);Repositioned;RN Notified Response to Interventions No relief Cognition Overall Cognitive Status WFL Arousal/Alertness Alert;Lethargic;Appropriate responses to stimuli Attention Span Appears intact Memory Appears intact Current communication Appears Intact Orientation Oriented X4 (person, place, time, situation) Following Commands Follows one step commands with repetition Safety Judgment Decreased awareness of need for safety Awareness of Errors Assistance required to identify errors made;Assistance required to correct errors made;Decreased awareness of errors Insight Decreased awareness of deficits Problem Solving Assistance required to identify errors made;Assistance required to generate solutions;Assistance required to implement solutions Compliance/Behavior Easy to engage Balance Balance Yes Static Sitting Balance Static Sitting-Balance Support Right upper extremity supported Static Sitting-Sitting Surface Bed Static Sitting-Level of Assistance Close supervision Static Standing Balance Static Standing-Balance Support Bilateral upper extremity supported Static Standing-Standing Surface Floor Static Standing-Level of Assistance Minimum assistance Static Standing-Comment/# of Minutes due to trunk sway and fatigue Exercises Balance Training EO/EC balance training at edge of bed with FWW and alternating UE assist Other Activities Other Activities Other (Comment) Other Activities Comments Education on pacing of activity this treatment date. Patient does requireincreased time to complete task this date due to fatigue, education on energy conservation and movement/breathing. Bed Mobility Bed Mobility Yes Bed Mobility 1 Bed Mobility From 1 Supine Bed Mobility Type 1 To Bed Mobility to 1 Edge of bed Level of Assistance 1 Minimum Assist;Moderate Assist Bed Mobility Comments 1 HOB elevated, cues needed to maintain sternal precautions this date. Transfers Transfer Yes Transfer 1 Transfer From 1 Sit Transfer Type 1 To and from Transfer to 1 Stand Technique 1 Sit to stand;Stand to sit Transfer Device 1 Wheeled walker Transfer Level of Assistance 1 Minimum Assist Trials/Comments 1 Melissa for sit to stand transfers. Ambulation Ambulation Yes Ambulation 1 Distance (ft) 1 200 Surface 1 Level tile Device 1 Wheeled walker Assistance 1 Minimum Assist Gait: Requires assist with 1 Maintaining balance;Weight shifting Gait: Requires verbal cues to 1 Use assistive device safely;Increase step length;Pace activity Gait Deviations 1 Antalgic;Base of support - increased;Shuffling;Stance time - decreased;Step length - decreased Ambulation Comments 1 Patient requires frequent (4+) rest breaks, increased time to complete task this date. Stairs Stairs No Other Comments Other PT Comments Patient was able to increase ambulation distance this treatment date however doesstill get easily tired and requires frequent breaks and increased time to complete this distance. No onset of dizziness or pain this date with gait RUE Assessment RUE Assessment X RUE Comments Funtionally weak LUE Assessment LUE Assessment X LUE Comments Functionally weak RLE Assessment RLE Assessment X RLE Comments Functionally weak LLE Assessment LLE Assessment X LLE Comments Functionally weak Safe Environment End of Therapy Session Safe Environment End of Therapy Session Patient left in recliner;Chair alarm in place and activated;RN notified;Sequential compressive devices on legs and activated;Call light within reach;Overbed table within reach Assessment Prognosis Good Problem List Gait deviations;Decreased strength;Decreased range of motion;Decreased endurance;Impaired balance;Decreased mobility;Pain Barriers to Discharge Current Mobility Status;Inaccessible home environment;Home environment challenged Modified [place] Score 1 Plan Plan Continue with current plan;If this is the last note, consider this the discharge summary Recommendation/Plan PT Recommendation/Plan (S) Inpatient Rehab Facility Patient at high risk for Falls;Readmission;Injury due to decreased ability to care for self;Injury due to reduced functional status;Injury due to impaired cognition;Injury due to balance deficits;Injury at home as patient has not returned to prior level of function;Difficulty maintaining orthopedic restrictions;Improper use of DME Recommend Inpatient Rehab/Acute Rehab due to (S) Ability to actively participate in intensive therapy 3 hours/day, 5 days/week or 900 minutes per week;Highly motivated to participate in therapy;Not at baseline due to impaired ability to complete ADLs;Impaired ability to complete functional mobility;Likely to return to the community at discharge with support system in place;Requires multiple therapy disciplines to address functional deficits;Patient and caregiver require specialized skilled training due to new level of function/diagnosis;Requires skilled therapy interventions to address neurological deficits;Requires greater than 25% physical assistance with most ADL tasks;Requires greater than 25% physical assistance with most mobility tasks PT Frequency during current admission 3-5x/wk Treatment/Interventions during current admission Balance Training;Bed mobility;Endurance training;Gait training;Stair training;Strengthening;Therapeutic activity;Therapeutic exercise;Transfer training PT Equipment Recommended Wheeled walker Progress during current admission Progressing toward goals PT - OK to Discharge No Multi-Disciplinary Problems (from Physical Therapy) Active Problems Problem: PT Mis Start Date: 10/21/23 Goal Start Date Expected End Date End Date PT [facility] [place] [facility] [place]23 11/04/23 -- Goal Details: Patient will perform supine<>sit Independent. Goal Start Date Expected End Date End Date PT [facility] [place] 10/21/23 11/04/23 -- Goal Details: Patient will perform bed<>chair transfer Modified Independent with ww. Goal Start Date Expected End Date End Date PT [facility] 3 10/21/23 11/04/23 -- Goal Details: Patient will ambulate 350 feet Modified Independent with wheeled walker. Goal Start Date Expected End Date End Date PT [facility] 4 10/21/23 11/04/23 -- Goal Details: Patient will ambulate up/down 1 step Modified Independent as needed to enter and exithome. Education: Patient has been educated on the role of PT, safety , precautions, mobility training, and home exercise program. Education completed via explanation, teach back, and demonstration. Patientverbalized understanding and demonstrated understanding DING ADMIN * Nida Starr, [employer] - 10/25/2023 3:01 PM CST Physical Therapy 10/25/23 1501 PT Last Visit Session Type Treatment PT Received On 10/25/23 Safe Environment Arm band checked;Patient found in supine;Session completed bedside;Gait belt utilized for all out of bed mobility Subjective Agreeable to Therapy Additional Pertinent History per eval: 53 y/o M presents for surgical intervention on 10/14/23 from [facility]. Pt is s/p CABG x 3 (SVG-PDA, SVG-OM, BRICE-LAD) and mechanical AVR on 10/[address] Valero. Pt has history of ESRD on PD, CAD s/p PCI, SC, and DVT on chronic anticoagulation, Type 1 DM, HTN. Family/Caregiver Present No Precautions Precautions Cardiac sternal;Fall risk;Bed/Chair Alarm Precaution Comments Pt recalls 3/4 sternal precautions. Verbally recalled 4/4 precautions. Activity Tolerance Activity Tolerance Comments pre-activity vitals: BP: 136/67, HR: 61bpm, O2 sats: 96% on room air. Post activity vitals: (pt with report of feeling lightheaded at end of walk) BP: 147/67 HR: 64bpm, O2sats: 98% on room air. Pain Assessment Pain Assessment 0-10 Pain Score 3 Pain Location Back (Lumbar) Pain Orientation Generalized Pain Descriptors Aching;Other (Comment) (Pt reports it feels like it has been stretched ) Clinical Progression Not changed (10/28) Cognition Overall Cognitive Status WFL Orientation Oriented X4 (person, place, time, situation) Compliance/Behavior Easy to engage Static Sitting Balance Static Sitting-Balance Support Bilateral upper extremity supported Static Sitting-Sitting Surface Bed Static Sitting-Level of Assistance Independent;Distant supervision Static Standing Balance Static Standing-Balance Support Bilateral upper extremity supported Static Standing-Standing Surface Floor Static Standing-Level of Assistance Minimum assistance Bed Mobility 1 Bed Mobility From 1 Supine Bed Mobility Type 1 To Bed Mobility to 1 Edge of bed Level of Assistance 1 Minimum Assist;Standby Assist Bed Mobility Comments 1 bed flat with encouragement to not use bedrail. Reinforced mintaining sternal precautions. Transfer 1 Transfer From 1 Sit;Bed;Chair with arms Transfer Type 1 To and from Transfer to 1 Stand Transfer Device 1 Wheeled walker Transfer Level of Assistance 1 Minimum Assist;Minimal verbal cues (verbal cues for sternal precautions) Ambulation 1 Distance (ft) 1 160' Surface 1 Level tile Device 1 Wheeled walker Other Apparatus 1 (S) Other (Comment) (wheelchair follow may be beneficial next treatment 2/2 pt getting lightheaded last 1/3 of walk.) Assistance 1 Minimum Assist Gait: Requires assist with 1 Maintaining balance Gait: Requires verbal cues to 1 Pace activity;Utilize pursed lip breathing Gait Deviations 1 Base of support - increased;David - decreased;Heel strike - decreased;Hip/knee flexion during swing phase - decreased;Path deviation;Shuffling;Step length - decreased Ambulation Comments 1 Pt stops 2-3 times and leans on railing in hallway for support. Pt reports his arms feel tired while walking. Walker lowered after session to see if this will help Other Comments Other PT Comments Pt tolerated treatment fair this date. Pt with demo of fatigue during mobility and continues to require cueing for safety. Safe Environment End of Therapy Session Safe Environment End of Therapy Session Patient left in recliner;RN notified;Call light within reach;Overbed table within reach (no chair alarm in use - pt aware to use call light) Assessment Prognosis Good Problem List Gait deviations;Decreased strength;Decreased range of motion;Decreased endurance;Impaired balance;Decreased mobility;Impaired judgement;Decreased safety awareness Barriers to Discharge Current Mobility Status;Decreased caregiver support;Inaccessible home environment;Home environment challenged Plan Plan Continue with current plan;If this is the last note, consider this the discharge summary Recommendation/Plan PT Recommendation/Plan (S) Inpatient Rehab Facility Patient at high risk for Falls;Readmission;Injury due to decreased ability to care for self;Injury due to reduced functional status;Injury due to balance deficits;Injury at home as patient has not returned to prior level of function Recommend Inpatient Rehab/Acute Rehab due to Ability to actively participate in intensive therapy 3hours/day, 5 days/week or 900 minutes per week;Highly motivated to participate in therapy;Not at baseline due to impaired ability to complete ADLs;Impaired ability to complete functional mobility;Likely to return to the community at discharge with support system in place;Requires greater than 25% physical assistance with most mobility tasks;Requires greater than 25% physical assistance with most ADL tasks;Requires multiple therapy disciplines to address functional deficits PT Frequency during current admission 3-5x/wk Treatment/Interventions during current admission Bed mobility;Compensatory technique education;Endurance training;Functional activity;Functional transfer training;Gait training;Therapeutic activity;Therapeutic exercise;Transfer training PT Equipment Recommended Wheeled walker (pending progress) Progress during current admission Progressing toward goals Education: Patient has been educated on the safety , precautions, and mobility training. Education completed via explanation and demonstration. Patient verbalized understanding, demonstrated understanding, and needs ongoing reinforcement Multi-Disciplinary Problems (from Physical Therapy) Active Problems Problem: PT Misc Start Date: 10/21/23 Goal Start Date Expected End Date End Date PT [facility] [place] 10/21/23 11/04/23 -- Goal Details: Patient will perform supine<>sit Independent. Goal Start Date Expected End Date End Date PT [facility] [place] [facility] [place] 2 10/21/23 11/04/23 -- Goal Details: Patient will perform bed<>chair transfer Modified Independent with ww. Goal Start Date Expected End Date End Date PT [facility] 3 10/21/23 11/04/23 -- Goal Details: Patient will ambulate 350 feet Modified Independent with wheeled walker. Goal Start Date Expected End Date End Date PT [facility] 4 10/21/23 11/04/23 -- Goal Details: Patient will ambulate up/down 1 step Modified Independent as needed to enter and exithome. Cosigned by Gustavo Swan, PT at 10/25/2023 4:45 PM BUILDING ADMIN DING ADMIN DING ADMIN * Guerline Rodriguez PA - 10/25/2023 2:13 PM CST Cardiothoracic Surgery Progress Note Subjective Chief Complaint: Severe multivessel coronary artery disease, moderate/severe aortic valve stenosis;s/p coronary artery bypass grafting x 3, aortic valve replacement (On-X mechanical), and sternal plating on 10/17/23 Interval History: There were no significant events overnight. He remains in normal sinus rhythm. His pain is under fairly good control. He is on room air with stable breathing. His stamina remains low however. Objective VS: BP 134/56 (BP Location: Left arm, Patient Position: Sitting) Pulse 59 Temp 36.9 ??C (98.5 ??F) (Oral) Resp 14 Ht 177.8 cm (5' 10 ) Wt 123.8 kg (272 lb 14.9 oz) SpO2 100% BMI 39.16 kg/m?? 24hr Min/Max: Temp Min: 36.3 ??C (97.3 ??F) Max: 36.9 ??C (98.5 ??F) Pulse Min: 59 Max: 65 BP Min: 129/57 Max: 142/59 Resp Min: 14 Max: 20 SpO2 Min: 95 % Max: 100 % Intake/Output Summary (Last 24 hours) at 10/25/2023 1413 Last data filed at 10/25/2023 1340 Gross per 24 hour Intake 2844.01 ml Output 3254 ml Net -409.99 ml Cardiac Telemetry: sinus rhythm Physical Exam: Gen: A&O, NAD Lungs: Diminished breath sounds Heart: RRR Ext: Warm, 2+ lower extremity edema Skin: Sternal incision c/d/i Lab Review: Lab Results Component Value Date WBC 8.2 10/25/2023 HGB 7.8 (L) 10/25/2023 HCT 24.7 (L) 10/25/2023 LABPLAT 202 10/25/2023 SODIUM 128 (L) 10/25/2023 POTASSIUM 4.0 10/25/2023 CHLORIDE 86 (L) 10/25/2023 CO2 21 (L) 10/25/2023 ANIONGAP 21 (H) 10/25/2023 BUNSER 86 (H) 10/25/2023 CREATININE 10.57 (H) 10/25/2023 GLUCOSE 208 (H) 10/25/2023 GLUCOSE 97 10/25/2023 CALCIUM 9.0 10/25/2023 MAGNESIUM 2.3 10/25/2023 APTT 65 (H) 10/25/2023 INR 1.62 (H) 10/25/2023 PT 18.5 (H) 10/25/2023 Radiology Review: XR Chest 1 View - Portable - in AM [[id number]] Collected: 10/25/23 1143 Order Status: Completed Updated: 10/25/23 1326 Narrative: EXAMINATION: XR CHEST 1 VIEW Impression: Comparison made to 10/24/2023. Sternal fixation wires and plates are seen and are intact. A right internal jugular catheter is in place with the tip overlying the superior vena cava. Interval improved aeration of the left lower lung with persistent trace left pleural effusion and improved, now mild atelectasis of the left lung base. Right lung is clear. There is no pneumothorax. Cardiomediastinal silhouette is unchanged. Assessment Severe multivessel coronary artery disease, moderate/severe aortic valve stenosis; s/p coronary artery bypass grafting x 3, aortic valve replacement (On- X mechanical), and sternal plating on 10/17/23 Acute on chronic systolic heart failure Hypertension Hyperlipidemia Type 1 diabetes mellitus ESRD on peritoneal dialysis Paroxysmal atrial fibrillation Sleep apnea Obesity GERD Acute blood loss anemia due to surgery Hyponatremia Plan ASA + Warfarin for anticoagulation, INR 1.62, continue Heparin infusion until INR is therapeutic Metoprolol 12.5 mg BID for beta-umair therapy Amiodarone 200 mg BID for anti-arrhythmic therapy Atorvastatin and Ezetimibe for lipid lowering therapy Torsemide 100 mg BID for diuresis, peritoneal dialysis nightly, Nephrology managing Home insulin pump resumed per Endocrinology Tylenol for pain control Encouraged incentive spirometer use and increased activity Stress ulcer prophylaxis: Protonix DVT prophylaxis: Heparin infusion PT/OT: Inpatient rehab currently recommended at discharge Plan reviewed with LESLY Larose 10/25/2023 DING ADMIN * Nusrat Us RPh - 10/25/2023 10:39 AM CST Warfarin monitoring Lab Results Component Value Date/Time INR 1.62 (H) 10/25/2023 12:33 AM HGB 7.8 (L) 10/25/2023 12:34 AM HGB 8.1 (L) 10/17/2023 12:26 PM HCT 24.7 (L) 10/25/2023 12:34 AM HCT 30.0 (L) 06/05/2022 03:22 PM LABPLAT 202 10/25/2023 12:34 AM Warfarin dose today: 1.5 mg INR is lateral from yesterday which indicates he is responding to warfarin doses (INR did not decrease). Expect INR will increase tomorrow. Continue with another 1.5 mg dose and reassess. DING ADMIN * Sophia Peoples COTA - 10/25/2023 9:43 AM CST Occupational Therapy 10/25/23 0943 General Session Type Treatment OT Received On 10/25/23 Safe Environment Arm band checked;Patient found sitting at edge of bed;Gait belt utilized for all out of bed mobility Subjective Agreeable to Therapy Family/Caregiver Present No Pain Assessment Pain Assessment No/denies pain Pain Score 4 Pain Type Surgical pain Clinical Progression Rapidly worsening (6/10) Pain Interventions (pt initially declined pain meds, but then requested pain meds towards end of the session) Static Standing Balance Static Standing-Balance Support Unilateral upper extremity supported Static Standing-Standing Surface Floor Static Standing-Level of Assistance Minimum assistance Static Standing-Comment/# of Minutes during clothes management and grooming Grooming Grooming: Where assessed Standing at sink Grooming: Level of assistance Standby Assist Grooming: Assistance with Teeth care;Increased time to complete LE Dressing LE Dressing: Where assessed Edge of bed LE Dressing: Level of assistance Maximal Verbal Cues LE Dressing: Assistance with Don/doff R sock;Don/doff L sock Toileting Toileting: Where assessed Toilet Toileting: Level of assistance Minimum Assist Toileting: Assistance with Clothing management up;Increased time to complete Transfer 1 Transfer Type 1 To and from Transfer to 1 Sit;Stand Transfer Device 1 Wheeled walker Transfer Level of Assistance 1 Minimum Assist Toilet Transfers Toilet Transfer Type To and from Toilet Transfer to Standard toilet Toilet Transfer: Equipment Wheeled walker Toilet Transfers Minimal assistance Additional Activities Additional Activities Comments To simulate home functional mobility pt ambulated in room and hallways with WW minimal assist , one sitting rest break due to pain in lower back and fatigue Other Comments Comments vitals pre activity HR 58, SpO2 96, BP 122/58. Vitals post activity BP 129/70, HR 63, [id number] Safe Environment End of Therapy Session Safe Environment End of Therapy Session Patient left in recliner;RN notified;Call light within reach;Overbed table within reach Assessment Prognosis Good Problem List Decreased upper extremity strength;Decreased endurance;Visual deficit;Decreased functional mobility;Decreased ADL independence;Decreased IADL independence Recommendation/Plan OT Recommendation (S) Inpatient Rehab Facility Patient at high risk for Injury due to decreased ability to care for self;Injury due to balance deficits;Injury at home as patient has not returned to prior level of function;Falls Recommend Inpatient Rehab/Acute Rehab due to Ability to actively participate in intensive therapy 3hours/day, 5 days/week or 900 minutes per week;Highly motivated to participate in therapy;Not at baseline due to impaired ability to complete ADLs;Impaired ability to complete functional mobility;Requires greater than 25% physical assistance with most mobility tasks;Requires greater than 25% physical assistance with most ADL tasks;Requires multiple therapy disciplines to address functional deficits Treatment/Interventions during current admission ADL/IADL retraining;Balance Training;Bed mobility;Endurance training;Functional activity;Functional mobility training;Functional transfer training Progress during current admission Progressing toward goals Multi-Disciplinary Problems (from Occupational Therapy) Active Problems Problem: OT Misc Start Date: 10/19/23 Goal Start Date Expected End Date End Date OT LTG 1 Pt will complete UE/LE dressing modified independent. 10/19/23 10/26/23 -- Goal Start Date Expected End Date End Date OT LTG 2 Pt will complete bathing with transfer modified independent. 10/19/23 10/26/23 -- Goal Start Date Expected End Date End Date OT LTG 3 Pt will complete toileting with transfer modified independent. 10/19/23 10/26/23 -- Goal Start Date Expected End Date End Date OT LTG 4 Pt will complete grooming at sink modified independent. 10/19/23 10/26/23 -- Goal Start Date Expected End Date End Date OT LTG 5 Pt will adhere to sternal precautions while completing transfers, mobility, and ADL tasks.10/19/23 10/26/23 -- Education: Patient has been educated on the role of OT, safety, precautions, ADL training, mobilitytraining, home exercise program, body mechanics, energy conservation, and use of adaptive equipment/DME. Education completed via verbal instruction and return demonstration. Patient needs ongoing reinforcement Cosigned by Suzie Aiken OT at 10/25/2023 11:49 AM BUILDING ADMIN DING ADMIN DING ADMIN * Emiliana Dickson NP - 10/25/2023 9:27 AM CST Daily Progress SUBJECTIVE: Mr. Garvin is resting in bed. No acute events over the night. C/o mild right sided chest pain, feels like heartburn.Denies chest pain, sob, palpitations, dizziness. OBJECTIVE: Vitals: 10/24/23 2041 10/24/23 2350 10/25/23 0511 10/25/23 0800 BP: 139/83 130/60 142/59 129/57 BP Location: Right arm Right arm Right arm Right arm Patient Position: HOB 30 degrees HOB 30 degrees HOB 30 degrees Sitting Pulse: 64 63 65 61 Resp: 20 20 20 20 Temp: 36.6 ??C (97.8 ??F) 36.9 ??C (98.4 ??F) 36.9 ??C (98.4 ??F) 36.3 ??C (97.3 ??F) TempSrc: Oral Oral Oral Oral SpO2: 96% 95% 98% 100% Weight: Height: Intake/Output Summary (Last 24 hours) at 10/25/2023 0928 Last data filed at 10/25/2023 0520 Gross per 24 hour Intake 1604.01 ml Output -- Net 1604.01 ml Scheduled Medications Medication Dose Route Frequency acetaminophen (TYLENOL) tablet 1,000 mg 1,000 mg oral Q6H ASHLEY amiodarone (PACERONE) tablet 200 mg 200 mg oral BID aspirin chewable tablet 81 mg 81 mg oral Daily atorvastatin (LIPITOR) tablet 80 mg 80 mg oral Daily calcitRIOL (ROCALTROL) capsule 0.25 mcg 0.25 mcg oral Daily calcium acetate(phosphat bind) (PHOSLO) capsule 1,334 mg 1,334 mg oral TID with meals docusate sodium (COLACE) capsule 100 mg 100 mg oral BID epoetin genia-epbx (RETACRIT) (10,000 unit/mL) injection 10,000 Units 10,000 Units subcutaneous Weekly - 2100 ezetimibe (ZETIA) tablet 10 mg 10 mg oral Daily gentamicin (GARAMYCIN) 0.1 % cream topical Daily [Held by Provider] insulin lispro (HumaLOG, ADMELOG) 100 unit/mL injection 0-10 Units 0-10 Units subcutaneous QID (with meals & nightly) [Held by Provider] insulin lispro (HumaLOG, ADMELOG) 100 unit/mL injection 4 Units 4 Units subcutaneous TID with meals [Held by Provider] insulin NPH (HumuLIN N, NovoLIN N) 100 unit/mL injection 15 Units 15 Units subcutaneous Daily [Held by Provider] insulin NPH (HumuLIN N, NovoLIN N) 100 unit/mL injection 35 Units 35 Units subcutaneous Nightly metoprolol tartrate (LOPRESSOR) immediate release tablet 12.5 mg 12.5 mg oral BID pantoprazole DR (PROTONIX) extended release tablet 40 mg 40 mg oral Daily polyethylene glycol (MIRALAX) packet 17 g 17 g oral Daily senna (SENOKOT) tablet 1 tablet 1 tablet oral BID sodium chloride 0.9% flush 0.5-20 mL 0.5-20 mL intra-catheter Q8H ASHLEY torsemide (DEMADEX) tablet 100 mg 100 mg oral BID DIURETIC LABS: Recent Labs Lab Units 10/25/23 0034 WBC K/cumm 8.2 HEMOGLOBIN g/dL 7.8* HEMATOCRIT % 24.7* PLATELETS K/cumm 202 Recent Labs Lab Units 10/25/23 0736 10/25/23 0423 10/25/23 0034 10/19/23 1625 10/19/23 1444 SODIUM mmol/L -- -- 128* < > -- POTASSIUM PLASMA mmol/L -- -- 4.0 < > -- CHLORIDE mmol/L -- -- 86* < > -- CO2 mmol/L -- -- 21* < > -- ANIONGAP mmol/L -- -- 21* < > -- GLUCOSE mg/dL -- -- 97 < > -- POC GLUCOSE MONITOR mg/dL 77 < > -- < > -- BUN SERUM mg/dL -- -- 86* < > -- CREATININE mg/dL -- -- 10.57* < > -- CALCIUM mg/dL -- -- 9.0 < > -- ALBUMIN g/dL -- -- 2.9* < > 3.0* ALK PHOS Units/L -- -- -- -- 104 ALT Units/L -- -- -- -- 9 AST Units/L -- -- -- -- 39 BILIRUBIN TOTAL mg/dL -- -- -- -- 0.3 < > = values in this interval not displayed. Lab Results Component Value Date BNP 113 (H) 03/21/2017 BNP 13 11/05/2013 Lab Results Component Value Date TROPONINI 0.03 03/21/2017 TROPONINI 0.03 03/21/2017 TROPONINI <0.03 11/06/2013 Exam General: in no apparent distress Neuro: Alert and oriented x 3, moves all extremities well HEENT: Normocephalic, atraumatic Neck: There are no carotid bruits. I do not appreciate JVD. Lungs: Symmetric, unlabored, clear to auscultation bilaterally Heart: Irregularly irregular with II/ BRINDA. Normal S1 and +S2 click. No JVD Abdomen: Soft, non-tender, non-distended, bowel sounds present Extremities: +2-3 BLE edema, palpable peripheral pulses BL Neurologic: No focal deficits ASSESSMENT/PLAN: CAD - prior SC with multiple PCI - LHC showed multivessel disease - LVEF dropped to ~25% (was 65% in 05/2022) - s/p CABG x3 and AVR on 10/17/23 with BRICE to LAD, SVG to OM, SVG to PDA Aortic Stenosis - AVR during CABG with 25 mm OnX mechanical prosthesis - warfarin dosing per pharmacy Hypertension - controlled on current regimen Dyslipidemia - continue Atorvastatin 80 mg and Ezetimibe 10 mg DM1 - stable with management per primary team ESRD - stable on PD per Nephrology Paroxysmal Atrial Fibrillation - occurred in 06/2022 during hospitalization - has had intermittent arrhythmia this admission - rates have been controlled throughout - amio loading completed, on PO amiodarone now - was on apixaban -> heparin -> wafarin with mechanical valve DVT - h/o RLE in 2017 - was on apixaban -> heparin -> wafarin with mechanical valve Hyponatremia - today 128 and down-trending - on torsemide 100 mg BID - rec free fluid restriction - management per primary/nephrology team Emiliana Dickson NP [facility] 10/25/2023 9:28 AM Cosigned by Dilip Cohen MD at 10/25/2023 9:55 AM BUILDING ADMIN DING ADMIN DING ADMIN Associated attestation - Dilip Cohen MD - 10/25/2023 9:55 AM BUILDING ADMIN Patient seen at the bedside Is continuing to recover Still has some edema Continue anticoagulation for both the Afib for the on X valve Total time taken was 15 minute * Nida Starr, LUIS - 10/24/2023 11:46 AM CST Physical Therapy 10/24/23 1146 PT Last Visit Session Type Treatment PT Received On 10/24/23 Safe Environment Arm band checked;Patient found sitting at edge of bed;Session completed bedside;Gait belt utilized for all out of bed mobility Subjective Agreeable to Therapy Additional Pertinent History per eval: 53 y/o M presents for surgical intervention on 10/14/23 from [facility]. Pt is s/p CABG x 3 (SVG-PDA, SVG-OM, BRICE-LAD) and mechanical AVR on 10/[address] Valero. Pt has history of ESRD on PD, CAD s/p PCI, SC, and DVT on chronic anticoagulation, Type 1 DM, HTN. Family/Caregiver Present No Precautions Precautions Cardiac sternal;Fall risk;Bed/Chair Alarm Precaution Comments Pt recalls 2/4 sternal precaution. Verbally reviewed 4/4 precautions with pt Activity Tolerance Activity Tolerance Comments pre-activity vitals: BP: 136/61, HR: 60bpm, O2 sats: 97% on room air. Post walk HR: 68bpm, O2 sats: 97% on room air. Post activity vitals: BP: 147/58, HR: 63bpm, O2 sats: 98% on room air Pain Assessment Pain Assessment 0-10 Pain Score 0 - No pain Clinical Progression Not changed (0/10) Cognition Overall Cognitive Status WFL Orientation Oriented X4 (person, place, time, situation) Compliance/Behavior Easy to engage Other Activities Other Activities Comments IS x 10 reps - pt is able to achieve 1000 with good technique Transfer 1 Transfer From 1 Sit;Bed Transfer Type 1 To and from Transfer to 1 Stand Transfer Device 1 Wheeled walker Transfer Level of Assistance 1 Minimum Assist;Minimal verbal cues Trials/Comments 1 consistent verbal cues for maintenance of sternal precautions. Ambulation 1 Distance (ft) 1 80' Surface 1 Level tile Device 1 Wheeled walker Assistance 1 Minimum Assist Gait: Requires assist with 1 Maintaining balance Gait: Requires verbal cues to 1 Use assistive device safely;Utilize appropriate gait sequencing;Pace activity;Utilize pursed lip breathing Gait Deviations 1 Base of support - increased;David - decreased;Heel strike - decreased;Hip/knee flexion during swing phase - decreased;Posture - flexed;Step length - decreased;Turns - difficulty Ambulation Comments 1 pt requires multiple standing rest breaks during mobility Stairs Stairs No Stair Comments deferred Other Comments Other PT Comments Pt tolerated treatment well this date but does demo increased fatigue and decreased activity tolerance overall. Pt is willing and motivated to participate and would benefit from continued skilled therapy to return to safe independent level of function. Safe Environment End of Therapy Session Safe Environment End of Therapy Session Patient left in recliner;RN notified;Call light within reach;Overbed table within reach (no chair alarm in use at this time.) Assessment Prognosis Good Problem List Gait deviations;Decreased strength;Decreased range of motion;Decreased endurance;Impaired balance;Decreased mobility;Impaired judgement;Decreased safety awareness Plan Plan Continue with current plan;If this is the last note, consider this the discharge summary Recommendation/Plan PT Recommendation/Plan (S) Inpatient Rehab Facility Patient at high risk for Falls;Readmission;Injury due to decreased ability to care for self;Injury due to reduced functional status;Injury due to balance deficits;Injury at home as patient has not returned to prior level of function Recommend Inpatient Rehab/Acute Rehab due to Ability to actively participate in intensive therapy 3hours/day, 5 days/week or 900 minutes per week;Highly motivated to participate in therapy;Not at baseline due to impaired ability to complete ADLs;Impaired ability to complete functional mobility;Likely to return to the community at discharge with support system in place;Requires greater than 25% physical assistance with most mobility tasks;Requires greater than 25% physical assistance with most ADL tasks;Requires multiple therapy disciplines to address functional deficits PT Frequency during current admission 3-5x/wk Treatment/Interventions during current admission Bed mobility;Compensatory technique education;Endurance training;Functional activity;Functional transfer training;Gait training;Therapeutic activity;Therapeutic exercise;Transfer training PT Equipment Recommended Wheeled walker Progress during current admission Progressing toward goals Education: Patient has been educated on the safety , precautions, and mobility training. Education completed via explanation, teach back, demonstration, and handout . Patient verbalized understandingand needs ongoing reinforcement Multi-Disciplinary Problems (from Physical Therapy) Active Problems Problem: [place] [facility] [place] Date: 10/21/23 Goal Start Date Expected End Date End Date PT [facility] [place] 10/21/23 11/04/23 -- Goal Details: Patient will perform supine<>sit Independent. Goal Start Date Expected End Date End Date PT [facility] [place] 2 10/21/23 11/04/23 -- Goal Details: Patient will perform bed<>chair transfer Modified Independent with ww. Goal Start Date Expected End Date End Date PT [facility] 3 10/21/23 11/04/23 -- Goal Details: Patient will ambulate 350 feet Modified Independent with wheeled walker. Goal Start Date Expected End Date End Date PT [facility] [place] 4 10/21/23 11/04/23 -- Goal Details: Patient will ambulate up/down 1 step Modified Independent as needed to enter and exithome. Cosigned by Gina Mason DPT at 10/24/2023 3:12 PM BUILDING ADMIN DING ADMIN DING ADMIN * Fernandez Carranza MD - 10/24/2023 10:56 AM CST Images from the original note were not included. Nephrology Juvenal Garvin Jr. - 1970 Primary : Aditya Correa MD History and interval events: 53-year-old gentleman with history of type 1 diabetes mellitus on insulin pump, CHF, CAD, ESRD on peritoneal dialysis initially presented to [facility] in [facility] on October 09 for symptoms of general malaise for the past 4 days prior to admission. Patient was having symptoms of nausea with dry heaves. He presented hemodynamically stable. His glucose was measured to be 584, beta hydroxybutyrate 2.9 with an anion gap of 19. Patient was transferred to the ICU for insulin dripand DKA management. During this hospitalization his troponin was measured to be elevated prompting a cardiology consultation which lead to a C. Results were notable for severe CAD and he was recommended to seek surgical revascularization evaluation prompting transfer to this facility. He missed his peritoneal dialysis last evening during transfer. He has been on peritoneal dialysis for approximately 2 years and tolerating this well under the care of Dr. Reyes. He does make some urine. S/P 3v CABG and Mech AVR 10/17 Warfarin started for history of RLE DVT. On heparin gtt PD going well - initial drain of 1450 with UF of 1900 No new complaints Medication: Current medication list reviewed Intake and Output Summary: Intake/Output Summary (Last 24 hours) at 10/24/2023 1056 Last data filed at 10/24/2023 0925 Gross per 24 hour Intake 600 ml Output 3365 ml Net -2765 ml Vital Signs: Vitals: 10/24/23 0925 BP: Pulse: 66 Resp: Temp: SpO2: Physical Exam: General Sitting up and eating breakfast H&N No visible JVD Eyes Pupils symmetrical with no scleral icterus Chest CTA Heart S1S2 reg Abdomen Soft and non tender PD catheter present Extremeties +2 lower extremity edema Skin No rash Neuro A little somnolent today Mental status CBC: Recent Labs Lab Units 10/24/23 0103 10/23/23 0153 10/22/23 0031 WBC K/cumm 9.3 11.7* 10.6* HEMOGLOBIN g/dL 7.6* 8.5* 8.5* HEMATOCRIT % 24.4* 27.3* 27.2* PLATELETS K/cumm 184 207 201 RFP: Recent Labs Lab Units 10/24/23 0103 10/23/23 0153 10/22/23 0031 10/21/23 0140 SODIUM mmol/L 127* 132* 134* 134* POTASSIUM PLASMA mmol/L 4.2 4.3 4.3 4.5 CHLORIDE mmol/L 86* 91* 93* 93* CO2 mmol/L 21* 20* 21* 22 BUN SERUM mg/dL 90* 91* 87* 81* CREATININE mg/dL 11.24* 11.59* 11.33* 11.40* CALCIUM mg/dL 8.6 9.0 8.8 8.6 PHOSPHORUS PLASMA mg/dL 6.1* 6.2* 7.3* 8.2* ALBUMIN g/dL 2.7* 2.6* 2.8* 2.7* Impression and Recommendations: 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 Mclouth, MD Chula Heady, PA Fernandez MD Renny Carranza PA Derek Larson, MD FASN Rose Mattli, NP Rohan Devanpalli, MD Candace Shirley, ROBERTO [address] [place], [place] [address] [phone] Office [phone] - Fax DING ADMIN * Nona Alcala PA - 10/24/2023 10:15 AM CST Cardiothoracic Surgery Daily Progress Procedure: Moderate to severe symptomatic aortic valve stenosis and severe 3 vessel coronary arterydisease s/p Aortic valve replacement, OnX mechanical prosthesis and Coronary artery bypass graftingx 3 with sternal plating on 10/17/23 Interval History: Patient not feeling well this morning, had a bad night. Had a lot of coughing overnight, headache this morning. Remains on 2L NC. Back in sinus rhythm, remains on Amio infusion Scheduled Medications: acetaminophen, 1,000 mg, oral, Q6H ASHLEY amiodarone, 200 mg, oral, BID aspirin, 81 mg, oral, Daily atorvastatin, 80 mg, oral, Daily calcitRIOL, 0.25 mcg, oral, Daily calcium acetate(phosphat bind), 1,334 mg, oral, TID with meals docusate sodium, 100 mg, oral, BID epoetin genia-epbx, 10,000 Units, subcutaneous, Weekly - 2100 ezetimibe, 10 mg, oral, Daily gentamicin, , topical, Daily [Held by Provider] insulin lispro, 0-10 Units, subcutaneous, QID (with meals & nightly) [Held by Provider] insulin lispro, 4 Units, subcutaneous, TID with meals [Held by Provider] insulin NPH, 15 Units, subcutaneous, Daily [Held by Provider] insulin NPH, 35 Units, subcutaneous, Nightly metoprolol tartrate, 12.5 mg, oral, BID pantoprazole DR, 40 mg, oral, Daily polyethylene glycol, 17 g, oral, Daily senna, 1 tablet, oral, BID sodium chloride 0.9%, 0.5-20 mL, intra-catheter, Q8H ASHLEY torsemide, 100 mg, oral, BID DIURETIC warfarin, 1.5 mg, oral, Once - 1800 OBJECTIVE Vitals: Most Recent: Vitals: 10/24/23 0745 BP: 133/61 Pulse: 59 Resp: 18 Temp: 36.6 ??C (97.9 ??F) SpO2: 98% 24hr Min/Max: Temp Min: 36.5 ??C (97.7 ??F) Max: 37.3 ??C (99.1 ??F) Pulse Min: 58 Max: 67 BP Min: 124/58 Max: 156/63 Resp Min: 18 Max: 22 SpO2 Min: 95 % Max: 99 % I/O: Intake/Output Summary (Last 24 hours) at 10/24/2023 1016 Last data filed at 10/24/2023 0600 Gross per 24 hour Intake 600 ml Output -- Net 600 ml Physical Exam: Gen: awake and alert, sitting up on side of bed, nad Lungs: normal resp pattern, 2L NC CV: NSR Skin: sternal Incision c/d/i Ext: ++ bilat LE edema Lab/Radiology/Diagnostic Review: Recent Labs Lab Units 10/24/23 0103 WBC K/cumm 9.3 HEMOGLOBIN g/dL 7.6* HEMATOCRIT % 24.4* PLATELETS K/cumm 184 Recent Labs Lab Units 10/24/23 0744 10/24/23 0103 SODIUM mmol/L -- 127* POTASSIUM PLASMA mmol/L -- 4.2 CHLORIDE mmol/L -- 86* CO2 mmol/L -- 21* ANIONGAP mmol/L -- 20* BUN SERUM mg/dL -- 90* CREATININE mg/dL -- 11.24* GLUCOSE mg/dL -- 143 POC GLUCOSE MONITOR mg/dL 202* -- CALCIUM mg/dL -- 8.6 Recent Labs Lab Units 10/24/23 0103 10/21/23 0140 10/20/23 0322 APTT sec -- -- 114* INR 1.60* < > -- < > = values in this interval not displayed. Radiology: ASSESSMENT Moderate to severe symptomatic aortic valve stenosis and severe 3 vessel coronary artery disease s/p Aortic valve replacement, OnX mechanical prosthesis and Coronary artery bypass grafting x 3 with sternal plating on 10/17/23 History CAD s/p stenting ESRD on PD History DVT on chronic anticoagulation Acute on chronic systolic congestive heart failure, EF 20-30% Paroxysmal atrial fibrillation Type 1 diabetes mellitus with recent DKA HTN Hyperlipidemia Sleep apnea Acute blood loss anemia, chronic anemia hyponatremia PLAN Coumadin dosing per pks for anticoagulation, INR 1.6 today. Epicardial wires removed this morning without issue. Resume heparin drip until INR therapeutic Convert Amiodarone to PO 200 mg bid ASA for antiplatelet therapy, plan for transition to plavix at discharge Metoprolol 12.5 mg bid for BP/HR control Continue statin and zetia Insulin regimen per endocrinology recommendations PD and diuresis with torsemide 100 mg bid per renal recommendations. CORRINE weekly. Continue calcitriol and phoslo Add robitussin for cough Remove wound vac DVT prophylaxis: resume heparin drip PT/OT. Therapy currently recommending inpatient rehab at discharge Patient discussed with LESLY Vallecillo 10/24/2023 DING ADMIN * Nusrat Us RPh - 10/24/2023 9:49 AM CST Warfarin monitoring Lab Results Component Value Date/Time INR 1.60 (H) 10/24/2023 01:03 AM HGB 7.6 (L) 10/24/2023 01:03 AM HGB 8.1 (L) 10/17/2023 12:26 PM HCT 24.4 (L) 10/24/2023 01:03 AM HCT 30.0 (L) 06/05/2022 03:22 PM LABPLAT 184 10/24/2023 01:03 AM INR decreased today as expected following no doses of warfarin on 10/20 and 10/21. Patient's INR previously responded after 2 doses of warfarin. Anticipate INR will increase after two doses of 1.5 mg, though difficult to estimate patient's warfarin requirement in acute post op setting (nutrition). Warfarin dose today: 1.5 mg DING ADMIN * Salena Rene NP - 10/24/2023 9:26 AM CST Cardiology Daily Progress - [facility] SUBJECTIVE: Mr. Garvin is resting in bed. He had no acute events overnight. Pain well controlled. States he is a bit groggy but otherwise no complaints. Review of Systems: Review of systems per HPI and otherwise all other systems are negative OBJECTIVE: Scheduled Medications Medication Dose Route Frequency acetaminophen (TYLENOL) tablet 1,000 mg 1,000 mg oral Q6H ASHLEY amiodarone (PACERONE) tablet 200 mg 200 mg oral BID aspirin chewable tablet 81 mg 81 mg oral Daily atorvastatin (LIPITOR) tablet 80 mg 80 mg oral Daily calcitRIOL (ROCALTROL) capsule 0.25 mcg 0.25 mcg oral Daily calcium acetate(phosphat bind) (PHOSLO) capsule 1,334 mg 1,334 mg oral TID with meals docusate sodium (COLACE) capsule 100 mg 100 mg oral BID epoetin genia-epbx (RETACRIT) (10,000 unit/mL) injection 10,000 Units 10,000 Units subcutaneous Weekly - 2100 ezetimibe (ZETIA) tablet 10 mg 10 mg oral Daily gentamicin (GARAMYCIN) 0.1 % cream topical Daily [Held by Provider] insulin lispro (HumaLOG, ADMELOG) 100 unit/mL injection 0-10 Units 0-10 Units subcutaneous QID (with meals & nightly) [Held by Provider] insulin lispro (HumaLOG, ADMELOG) 100 unit/mL injection 4 Units 4 Units subcutaneous TID with meals [Held by Provider] insulin NPH (HumuLIN N, NovoLIN N) 100 unit/mL injection 15 Units 15 Units subcutaneous Daily [Held by Provider] insulin NPH (HumuLIN N, NovoLIN N) 100 unit/mL injection 35 Units 35 Units subcutaneous Nightly metoprolol tartrate (LOPRESSOR) immediate release tablet 12.5 mg 12.5 mg oral BID pantoprazole DR (PROTONIX) extended release tablet 40 mg 40 mg oral Daily polyethylene glycol (MIRALAX) packet 17 g 17 g oral Daily senna (SENOKOT) tablet 1 tablet 1 tablet oral BID sodium chloride 0.9% flush 0.5-20 mL 0.5-20 mL intra-catheter Q8H ASHLEY torsemide (DEMADEX) tablet 100 mg 100 mg oral BID DIURETIC Continuous Medications Medication Dose Last Rate Dianeal low calcium-dextrose 2.5 % 6,000 mL with heparin 3,000 Units dialysis solution Dianeal low calcium-dextrose 2.5 % 6,000 mL with heparin 3,000 Units dialysis solution Extraneal 7.5% AMBU-FLEX 2,500 mL with heparin 1,250 Units dialysis solution INSULIN SUBCUTANEOUS PUMP insulin lispro (HumaLOG) 100 UNIT/ML patient supplied pump 0-25 Units 0-25 Units PRN Medications Medication Dose Route Frequency Last Admin benzocaine-menthoL (CHLORASEPTIC) lozenge 1 lozenge 1 lozenge mouth/throat Q4H PRN 1 lozenge at 10/24/23 0745 bisacodyL (DULCOLAX) suppository 10 mg 10 mg rectal Daily PRN Carrier Fluids for Secondary Infusion - 0.9% Sodium Chloride 30 mL intravenous PRN dextrose (GLUTOSE) 40 % gel 15 g 15 g oral Q15 Min PRN Or dextrose (D10W) 10% bolus 250 mL 250 mL intravenous Q15 Min PRN glucagon injection 1 mg 1 mg intramuscular Q30 Min PRN guaiFENesin (ROBITUSSIN) 20 mg/mL oral liquid 200 mg 200 mg oral Q4H PRN 200 mg at 10/24/23 0745 insulin lispro (HumaLOG, ADMELOG) 100 unit/mL injection 5 Units 5 Units subcutaneous Once PRN magnesium sulfate 2 g/50 mL in water (premix) 2 g 2 g intravenous Q2H PRN ondansetron (ZOFRAN) injection 4 mg 4 mg intravenous Q6H PRN 4 mg at 10/19/23 1721 potassium chloride ER (KLOR-CON) extended release tablet 20 mEq 20 mEq oral Q4H PRN potassium chloride ER (KLOR-CON) extended release tablet 40 mEq 40 mEq oral Q4H PRN ramelteon (ROZEREM) tablet 8 mg 8 mg oral Nightly PRN sodium chloride 0.9% flush 0.5-20 mL 0.5-20 mL intra-catheter PRN traMADoL (ULTRAM) tablet 50 mg 50 mg oral Q8H PRN Recent Labs Lab Units 10/24/23 0744 10/24/23 0103 10/23/23 2314 10/23/23 0754 10/23/23 0153 10/22/23 0812 10/22/23 0031 10/19/23 1625 10/19/23 1444 SODIUM mmol/L -- 127* -- -- 132* -- 134* < > -- POTASSIUM PLASMA mmol/L -- 4.2 -- -- 4.3 -- 4.3 < > -- CHLORIDE mmol/L -- 86* -- -- 91* -- 93* < > -- CO2 mmol/L -- 21* -- -- 20* -- 21* < > -- ANIONGAP mmol/L -- 20* -- -- 21* -- 20* < > -- GLUCOSE mg/dL -- 143 -- -- 176 -- 212* < > -- POC GLUCOSE MONITOR mg/dL 202* -- 128 < > -- < > -- < > -- BUN SERUM mg/dL -- 90* -- -- 91* -- 87* < > -- CREATININE mg/dL -- 11.24* -- -- 11.59* -- 11.33* < > -- CALCIUM mg/dL -- 8.6 -- -- 9.0 -- 8.8 < > -- ALBUMIN g/dL -- 2.7* -- -- 2.6* -- 2.8* < > 3.0* ALK PHOS Units/L -- -- -- -- -- -- -- -- 104 ALT Units/L -- -- -- -- -- -- -- -- 9 AST Units/L -- -- -- -- -- -- -- -- 39 BILIRUBIN TOTAL mg/dL -- -- -- -- -- -- -- -- 0.3 MAGNESIUM mg/dL -- 2.2 -- -- 2.4 -- 2.4 < > -- < > = values in this interval not displayed. Recent Labs Lab Units 10/24/2310210/23/2315210/22/2330 WBC K/cumm 9.3 11.7* 10.6* HEMOGLOBIN g/dL 7.6* 8.5* 8.5* HEMATOCRIT % 24.4* 27.3* 27.2* PLATELETS K/cumm 184 207 201 Recent Labs Lab Units 10/24/2310210/23/23 0153 10/22/23 0031 10/21/23 0140 10/20/23 0322 10/20/23 0021 10/19/23 2147 10/19/23 1444 PROTIME (PT) sec 18.2* 24.9* 48.4* < > -- < > -- -- INR 1.60* 2.18* 4.25* < > -- < > -- -- APTT sec -- -- -- -- 114* -- 94* 59* < > = values in this interval not displayed. Intake/Output Summary (Last 24 hours) at 10/24/2023 0926 Last data filed at 10/24/2023 0600 Gross per 24 hour Intake 1600 ml Output 3460 ml Net -1860 ml Wt Readings from Last 3 Encounters: 10/24/23 129.7 kg (285 lb 15 oz) 06/29/22 118.1 kg (260 lb 6.4 oz) 01/21/21 132.9 kg (293 lb) Patient Vitals for the past 24 hrs: BP Temp Temp src Pulse Resp SpO2 Weight 10/24/23 0900 -- -- -- -- -- -- 129.7 kg (285 lb 15 oz) 10/24/23 0745 133/61 36.6 ??C (97.9 ??F) Oral 59 18 98 % -- 10/24/23 0600 131/79 36.6 ??C (97.8 ??F) Oral 58 18 98 % -- 10/24/23 0053 124/58 -- -- 60 20 99 % -- 10/24/23 0019 -- -- -- 61 -- -- -- 10/23/23 2245 -- -- -- 67 -- -- -- 10/23/232018 156/63 36.5 ??C (97.7 ??F) Oral 66 22 97 % -- 10/23/23 1553 126/63 37.3 ??C (99.1 ??F) Oral 67 20 95 % -- 10/23/23 1214 124/60 36.9 ??C (98.5 ??F) Oral 65 18 99 % -- 10/23/23 1000 -- -- -- 70 -- -- -- Telemetry: SR 1st degree AVB; no concerning ectopy Exam: General: In no apparent distress Neuro: Alert and oriented x 3, moves all extremities well HEENT: Normocephalic, atraumatic Neck: There are no carotid bruits. I do not appreciate JVD. Lungs: Symmetric, unlabored, clear to auscultation bilaterally Heart: S1,S2, regular rate & rhythm, no murmurs, rubs, or gallops Abdomen: Soft, non-tender, non-distended, bowel sounds present Extremities: +2-3 BLE edema, palpable peripheral pulses BL Neurologic: No focal deficits ASSESSMENT/PLAN: CAD - prior SC with multiple PCI - C showed multivessel disease - LVEF dropped to ~25% (was 65% in 05/2022) - s/p CABG x3 and AVR on 10/17/23 with BRICE to LAD, SVG to OM, SVG to PDA Aortic Stenosis - AVR during CABG with 25 mm OnX mechanical prosthesis - warfarin dosing per pharmacy Hypertension - controlled on current regimen Dyslipidemia - continue Atorvastatin 80 mg and Ezetimibe 10 mg DM1 - stable with management per primary team ESRD - stable on PD per Nephrology Paroxysmal Atrial Fibrillation - occurred in 06/2022 during hospitalization - has had intermittent arrhythmia this admission - rates have been controlled throughout - amio loading completed - starting PO today - was on apixaban -> heparin -> wafarin with mechanical valve DVT - h/o RLE in 2017 - was on apixaban -> heparin -> wafarin with mechanical valve Hyponatremia - today 127 and down-trending - on torsemide 100 mg BID - rec free fluid restriction - management per primary/nephrology team Recommendations: - starting PO amiodarone today - recommend free water restriction with hyponatremia Salena Rene NP [facility] 10/24/2023 9:26 AM DING ADMIN * Wyatt Rodriguez EP-C - 10/24/2023 8:08 AM CST Inpatient Cardiac Rehab Education Patient Information Patient Name: Juvenal Garvin Jr. : 1970 Room/Bed: [place] [address]/[address] Insurance: [employer] + IDPA Progress Note Manager Configuration: ROSA Silva Date: 10/24/2023 Referring Diagnosis for Cardiac Rehab - s/p CABG x 3, AVR Education Provided Explained my role as a Cardiac Rehab Navigator (CRN). Provided Cardiac Rehab education to patient. Family was (not) present. Patient was provided with Cardiac Rehab education folder as well as a [facility] Heart Education booklet. Risk Factors: HTN, HLD, DM Discussed and provided resources for managing the above risk factors, as well as managing stress/anxiety/depression. - Briefly discussed cardiac medications, and the importance of medication adherence. Advised patient to consult their nurse, physician, and/or pharmacist if they have any questions about their medications. - Briefly discussed the benefit of lifestyle modifications such as diet (sodium and saturated fats)and exercise. Advised patient to consult their boat detailer, nurse, and/or physician if they have any questions about their diet/nutrition. Cardiac Rehab: Gave patient options of facilities for Outpatient Cardiac Rehab (OCR) in their community. Explained OCR program. Patient expressed knowledge towards local OCR program - patient prefers [facility] I anticipate no barriers for patient to participate in cardiac rehab. Patient was pleasant and opento education. Patient states that they are not currently exercising on their own. Stressed the importance/benefits of incorporating regular aerobic exercise into their lifestyle. I explained how this would assist in their recovery post-CABG, and help maintain/improve their cardiovascular health going forward. Advised patient to follow physician instructions/restrictions as prescribed post-discharge. Recommended light walking several times a day and progress as tolerated. Exercise Education: Explained the importance of trying to gradually/safely increase exercise tolerance. Educated patient on working towards eventually trying to reach the [place] [employer] recommendations in regards to exercise: 150+ minutes/week of light to moderate-intensity aerobic exercise, or 75+ minutes/ week of vigorous-intensity aerobic exercise. I explained how this would help to improve cardiovascular function, as well as quality of life. - Explained safe exercise intensities with patient, discussing how using the talk test as a frameof reference in regards to preferable intensity level for general population. - Suggested that patient avoid strenuous exercise/exertion outside if the weather is under 40 degrees, or over 85 degrees. Explained the physiological reasoning for this suggestion. - Educated patient on the signs/symptoms of over-exertion: SOB, chest discomfort, musculoskeletal pain, abnormal fatigue. Explained when it would be appropriate to call General Surgeon's office, go to the ER, or call 911. Insurance Coverage: Briefly explained general insurance coverage for OCR, but assured patient that OCR facility will usually call insurance and inform patient of more of an approximate coverage. Post-Discharge: Explained process between discharge from hospital, and getting set up in an OCR program - follow upwith General Surgeon, CRN follow up calls, OCR program contact. Conclusion Patient seems likely to participate in OCR. Reassured patient of importance and health care provider support of OCR. Patient verbalized understanding of education, and all questions were answered to the best of my ability. Will complete order for OCR to be sent to General Surgeon. Thank you for allowing us to addictions counselor assistant in the care of this patient, please don't hesitate to contact the Cardiac Rehab Navigator office with any questions: [phone]. DING ADMIN * Fernandez Carranza MD - 10/23/2023 5:30 PM CST Images from the original note were not included. Nephrology Juvenal Garvin Jr. - 1970 Primary : Aditya Correa MD History and interval events: 53-year-old gentleman with history of type 1 diabetes mellitus on insulin pump, CHF, CAD, ESRD on peritoneal dialysis initially presented to [facility] in [facility] on October 09 for symptoms of general malaise for the past 4 days prior to admission. Patient was having symptoms of nausea with dry heaves. He presented hemodynamically stable. His glucose was measured to be 584, beta hydroxybutyrate 2.9 with an anion gap of 19. Patient was transferred to the ICU for insulin dripand DKA management. During this hospitalization his troponin was measured to be elevated prompting a cardiology consultation which lead to a [facility]. Results were notable for severe CAD and he was recommended to seek surgical revascularization evaluation prompting transfer to this facility. He missed his peritoneal dialysis last evening during transfer. He has been on peritoneal dialysis for approximately 2 years and tolerating this well under the care of Dr. Reyes. He does make some urine. S/P 3v CABG and Mech AVR 10/17 Warfarin started for history of RLE DVT. On heparin gtt PD going well - initial drain of 1800 with UF of 1700 No new complaints Medication: Current medication list reviewed Intake and Output Summary: Intake/Output Summary (Last 24 hours) at 10/23/2023 1730 Last data filed at 10/23/2023 1000 Gross per 24 hour Intake 4732 ml Output 3560 ml Net 1172 ml Vital Signs: Vitals: 10/23/23 1553 BP: 126/63 Pulse: 67 Resp: 20 Temp: 37.3 ??C (99.1 ??F) SpO2: 95% Physical Exam: General Sitting up and eating breakfast H&N No visible JVD Eyes Pupils symmetrical with no scleral icterus Chest CTA Heart S1S2 reg Abdomen Soft and non tender PD catheter present Extremeties +2 lower extremity edema Skin No rash Neuro Nonfocal Mental status Alert and conversant CBC: Recent Labs Lab Units 10/23/23 0153 10/22/23 0031 10/21/23 0140 WBC K/cumm 11.7* 10.6* 8.2 HEMOGLOBIN g/dL 8.5* 8.5* 8.0* HEMATOCRIT % 27.3* 27.2* 25.6* PLATELETS K/cumm 207 201 185 RFP: Recent Labs Lab Units 10/23/23 0153 10/22/23 0031 10/21/23 0140 10/20/23 0021 SODIUM mmol/L 132* 134* 134* 137 POTASSIUM PLASMA mmol/L 4.3 4.3 4.5 4.4 CHLORIDE mmol/L 91* 93* 93* 96* CO2 mmol/L 20* 21* 22 21* BUN SERUM mg/dL 91* 87* 81* 77* CREATININE mg/dL 11.59* 11.33* 11.40* 11.28* CALCIUM mg/dL 9.0 8.8 8.6 8.9 PHOSPHORUS PLASMA mg/dL 6.2* 7.3* 8.2* 8.9* ALBUMIN g/dL 2.6* 2.8* 2.7* 2.8* Impression and Recommendations: 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 - [address] [place], [place] [address] [phone] Office [phone] - Fax DING ADMIN * Nona Alcala PA - 10/23/2023 3:04 PM CST Cardiothoracic Surgery Daily Progress Procedure: Moderate to severe symptomatic aortic valve stenosis and severe 3 vessel coronary arterydisease s/p Aortic valve replacement, OnX mechanical prosthesis and Coronary artery bypass graftingx 3 with sternal plating on 10/17/23 Interval History: Patient says his chest hurts but is otherwise doing ok today. Breathing stable, room air. Ambulated short distance with therapy. Remains in rate controlled Afib, Amiodarone infusionstarted. Scheduled Medications: acetaminophen, 1,000 mg, oral, Q6H ASHLEY aspirin, 81 mg, oral, Daily atorvastatin, 80 mg, oral, Daily calcitRIOL, 0.25 mcg, oral, Daily calcium acetate(phosphat bind), 1,334 mg, oral, TID with meals docusate sodium, 100 mg, oral, BID epoetin genia-epbx, 10,000 Units, subcutaneous, Weekly - 2100 ezetimibe, 10 mg, oral, Daily gentamicin, , topical, Daily [Held by Provider] insulin lispro, 0-10 Units, subcutaneous, QID (with meals & nightly) [Held by Provider] insulin lispro, 4 Units, subcutaneous, TID with meals [Held by Provider] insulin NPH, 15 Units, subcutaneous, Daily [Held by Provider] insulin NPH, 35 Units, subcutaneous, Nightly metoprolol tartrate, 12.5 mg, oral, BID pantoprazole DR, 40 mg, oral, Daily polyethylene glycol, 17 g, oral, Daily senna, 1 tablet, oral, BID sodium chloride 0.9%, 0.5-20 mL, intra-catheter, Q8H ASHLEY sodium chloride 0.9%, 0.5-20 mL, intra-catheter, Q8H ASHLEY torsemide, 100 mg, oral, BID DIURETIC warfarin, 1.5 mg, oral, Once - 1800 OBJECTIVE Vitals: Most Recent: Vitals: 10/23/23 1214 BP: 124/60 Pulse: 65 Resp: 18 Temp: 36.9 ??C (98.5 ??F) SpO2: 99% 24hr Min/Max: Temp Min: 36.3 ??C (97.4 ??F) Max: 37.3 ??C (99.1 ??F) Pulse Min: 65 Max: 93 BP Min: 118/87 Max: 157/95 Resp Min: 18 Max: 18 SpO2 Min: 93 % Max: 99 % I/O: Intake/Output Summary (Last 24 hours) at 10/23/2023 1504 Last data filed at 10/23/2023 1000 Gross per 24 hour Intake 4732 ml Output 3560 ml Net 1172 ml Physical Exam: Gen: awake and alert, sitting up in chair, nad Lungs: normal resp pattern, room air CV: Afib Skin: sternal Incision c/d/i Ext: Mild bilat LE edema Lab/Radiology/Diagnostic Review: Recent Labs Lab Units 10/23/23 0153 WBC K/cumm 11.7* HEMOGLOBIN g/dL 8.5* HEMATOCRIT % 27.3* PLATELETS K/cumm 207 Recent Labs Lab Units 10/23/23 1208 10/23/23 0754 10/23/23 0153 SODIUM mmol/L -- -- 132* POTASSIUM PLASMA mmol/L -- -- 4.3 CHLORIDE mmol/L -- -- 91* CO2 mmol/L -- -- 20* ANIONGAP mmol/L -- -- 21* BUN SERUM mg/dL -- -- 91* CREATININE mg/dL -- -- 11.59* GLUCOSE mg/dL -- -- 176 POC GLUCOSE MONITOR mg/dL 203* < > -- CALCIUM mg/dL -- -- 9.0 < > = values in this interval not displayed. Recent Labs Lab Units 10/23/23 0153 10/21/23 0140 10/20/23 0322 APTT sec -- -- 114* INR 2.18* < > -- < > = values in this interval not displayed. Radiology: CXR IMPRESSION: Comparison is made to 10/22/2023. There are median sternotomy wires and reconstruction plates. Right internal jugular central venous catheter has tip in the superior vena cava. No interval change in streaky opacity at the left base which could be secondary to aspiration or atelectasis in association with small left effusion. Atelectasis along the right minor fissure is unchanged. There is no pneumothorax. No edema. Overall, no change. ASSESSMENT Moderate to severe symptomatic aortic valve stenosis and severe 3 vessel coronary artery disease s/p Aortic valve replacement, OnX mechanical prosthesis and Coronary artery bypass grafting x 3 with sternal plating on 10/17/23 History CAD s/p stenting ESRD on PD History DVT on chronic anticoagulation Acute on chronic systolic congestive heart failure, EF 20-30% Paroxysmal atrial fibrillation Type 1 diabetes mellitus with recent DKA HTN Hyperlipidemia Sleep apnea Acute blood loss anemia, chronic anemia PLAN Coumadin dosing per pks for anticoagulation, INR 2.18 today Start IV Amiodarone ASA for antiplatelet therapy, plan for transition to plavix at discharge Metoprolol 12.5 mg bid for BP/HR control Continue statin and zetia Insulin regimen per endocrinology recommendations PD and diuresis with torsemide 100 mg bid per renal recommendations. CORRINE weekly. Continue calcitriol and phoslo DVT prophylaxis: therapeutic INR PT/OT. Therapy currently recommending inpatient rehab st discharge Patient discussed with LESLY Vallecillo 10/23/2023 DING ADMIN * Gustavo Swan, PT - 10/23/2023 10:42 AM CST Physical Therapy Treatment 10/23/23 1042 PT Last Visit Session Type Treatment PT Received On 10/23/23 Safe Environment Arm band checked;Patient found in supine;Gait belt utilized for all out of bed mobility Subjective Agreeable to Therapy Subjective Comment Patient found laying supine in bed at the start of treatment. Patient fatigued from OT session and dialysis earlier in the morning but is agreeable to some therapy Additional Pertinent History 53 y/o M presents for surgical intervention on 10/14/23 from [facility]. Pt is s/p CABG x 3 (SVG-PDA, SVG-OM, BRICE-LAD) and mechanical AVR on 10/[address] Valero. Pt has history of ESRD on PD, CAD s/p PCI, SC, and DVT on chronic anticoagulation, Type 1 DM, HTN. Family/Caregiver Present No Precautions Precautions Cardiac sternal;Bed/Chair Alarm;Fall risk Precaution Handout Issued Yes Precaution Comments Reviewed all sternal precautions with patient. Patient with poor recall and poor adherance to precautions even with verbal reminders during task Activity Tolerance Endurance Tolerates 10 - 20 min activity with multiple rests Activity Tolerance Comments Frequent rest breaks needed due to fatigue. BP 142/67, 72 BPM, 98% SpO2on RA. Pain Assessment Pain Assessment 0-10 Pain Score 4 Patient's Stated Pain Goal No pain Pain Type Surgical pain Chronic Pain Precipitating Factors At Rest Chronic Pain Alleviating Factors Medication;Relaxation Pain Location Sternum Pain Orientation Generalized Pain Descriptors Aching Pain Frequency With movement/cough Pain Onset Ongoing Clinical Progression Not changed Pain Interventions Medication (See MAR);Repositioned;RN Notified Response to Interventions No relief Cognition Overall Cognitive Status WFL Arousal/Alertness Alert;Lethargic;Appropriate responses to stimuli Attention Span Appears intact Memory Appears intact Current communication Appears Intact Orientation Oriented X4 (person, place, time, situation) Following Commands Follows one step commands with repetition Safety Judgment Decreased awareness of need for safety Awareness of Errors Assistance required to identify errors made;Assistance required to correct errors made;Decreased awareness of errors Insight Decreased awareness of deficits Problem Solving Assistance required to identify errors made;Assistance required to generate solutions;Assistance required to implement solutions Compliance/Behavior Easy to engage Balance Balance Yes Static Sitting Balance Static Sitting-Balance Support Right upper extremity supported;Feet supported Static Sitting-Sitting Surface Bed Static Sitting-Level of Assistance Minimum assistance Static Sitting-Comment/# of Minutes Due to trunk sway. Static Standing Balance Static Standing-Balance Support Bilateral upper extremity supported Static Standing-Standing Surface Floor Static Standing-Level of Assistance Minimum assistance Static Standing-Comment/# of Minutes To decrease weight in bilateral UE. Exercises Balance Training EO/EC balance training at edge of bed with FWW and alternating UE assist Other Activities Other Activities Other (Comment) Other Activities Comments Copious education provided on maintaining sternal precautions during treatment session, patient not compliant, requires extensive education. Bed Mobility Bed Mobility Yes Bed Mobility 1 Bed Mobility From 1 Supine Bed Mobility Type 1 To and from Bed Mobility to 1 Edge of bed Level of Assistance 1 Moderate Assist Bed Mobility Comments 1 HOB elevated, ModA for LE navigation in and out of bed and trunk stabilization. Requires cues to not break sternal precautions. Transfers Transfer Yes Transfer 1 Transfer From 1 Sit Transfer Type 1 To and from Transfer to 1 Stand Technique 1 Stand to sit;Sit to stand Transfer Device 1 Wheeled walker Transfer Level of Assistance 1 Minimum Assist Trials/Comments 1 Cues to not break sternal precautions this date, patient not always compliant even with cues Ambulation Ambulation Yes Ambulation 1 Distance (ft) 1 15 Surface 1 Level tile Device 1 Wheeled walker Assistance 1 Minimum Assist Gait: Requires assist with 1 Maintaining balance Gait: Requires verbal cues to 1 Use assistive device safely;Increase step length;Pace activity Gait Deviations 1 Antalgic;Base of support - increased;Shuffling;Stance time - decreased;Step length - decreased Ambulation Comments 1 Step-to gait pattern. Patient requires cues to not push too hard through FWW,breaks due to fatigue often utilized. Stairs Stairs No Stair Comments deferred Other Comments Other PT Comments Patient continues to require extensive cues to maintain sternal preacution with task as well as demonstrates decreased strength, endurance, balance and functional mobility that would prove home discharge impossible at this time. RUE Assessment RUE Assessment X RUE Comments Funtionally weak LUE Assessment LUE Assessment X LUE Comments Functionally weak RLE Assessment RLE Assessment X RLE Comments Functionally weak LLE Assessment LLE Assessment X LLE Comments Functionally weak Safe Environment End of Therapy Session Safe Environment End of Therapy Session Patient left in recliner;Chair alarm in place and activated;RN notified;Sequential compressive devices on legs and activated;Call light within reach;Overbed table within reach Assessment Prognosis Good Problem List Gait deviations;Decreased strength;Decreased range of motion;Decreased endurance;Impaired balance;Decreased mobility;Orthopedic restrictions;Pain;Decreased coordination;Decreased cognition Barriers to Discharge Current Mobility Status;Decreased caregiver support;Home environment challenged;Inaccessible home environment;Noncompliance Plan Plan Continue with current plan;If this is the last note, consider this the discharge summary Recommendation/Plan PT Recommendation/Plan (S) Inpatient Rehab Facility Patient at high risk for Falls;Readmission;Injury due to decreased ability to care for self;Injury due to reduced functional status;Injury due to balance deficits;Injury at home as patient has not returned to prior level of function;Difficulty maintaining orthopedic restrictions;Improper use of DME Recommend Inpatient Rehab/Acute Rehab due to (S) Ability to actively participate in intensive therapy 3 hours/day, 5 days/week or 900 minutes per week;Highly motivated to participate in therapy;Not at baseline due to impaired ability to complete ADLs;Likely to return to the community at discharge with support system in place;Requires greater than 25% physical assistance with most mobility tasks;Requires greater than 25% physical assistance with most ADL tasks;Requires skilled therapy interventions to address neurological deficits;Patient and caregiver require specialized skilled training due to new level of function/diagnosis;Requires multiple therapy disciplines to address functional deficits;Impaired ability to complete functional mobility PT Frequency during current admission 3-5x/wk Treatment/Interventions during current admission Bed mobility;Balance Training;Endurance training;Gait training;Neuromuscular re-education;Stair training;Strengthening;Therapeutic activity;Therapeutic exercise;Transfer training PT Equipment Recommended Wheeled walker Progress during current admission Progressing toward goals PT - OK to Discharge No Multi-Disciplinary Problems (from Physical Therapy) Active Problems Problem: PT [facility] Start Date: 10/21/23 Goal Start Date Expected End Date End Date PT [facility] [place] 10/21/23 11/04/23 -- Goal Details: Patient will perform supine<>sit Independent. Goal Start Date Expected End Date End Date PT [facility] 2 10/21/23 11/04/23 -- Goal Details: Patient will perform bed<>chair transfer Modified Independent with ww. Goal Start Date Expected End Date End Date PT [facility] 3 10/21/23 11/04/23 -- Goal Details: Patient will ambulate 350 feet Modified Independent with wheeled walker. Goal Start Date Expected End Date End Date PT [facility] 4 10/21/23 11/04/23 -- Goal Details: Patient will ambulate up/down 1 step Modified Independent as needed to enter and exithome. Education: Patient has been educated on the role of PT, safety , precautions, mobility training, stairs, and home exercise program. Education completed via explanation, teach back, and demonstration.Patient verbalized understanding, demonstrated understanding, and needs ongoing reinforcement DING ADMIN * Nusrat Us RPh - 10/23/2023 9:40 AM CST Warfarin monitoring Lab Results Component Value Date/Time INR 2.18 (H) 10/23/2023 01:53 AM HGB 8.5 (L) 10/23/2023 01:53 AM HGB 8.1 (L) 10/17/2023 12:26 PM HCT 27.3 (L) 10/23/2023 01:53 AM HCT 30.0 (L) 06/05/2022 03:22 PM LABPLAT 207 10/23/2023 01:53 AM Warfarin dose today: 1.5 mg Anticipate INR dropping again tomorrow. Given patient is very responsive to warfarin, will reinitiate at half of the previous starting dose of 3 mg. DING ADMIN * Nida Starr PTA - 10/23/2023 8:10 AM CST Physical Therapy 10/23/23 0810 PT Last Visit Session Type Treatment PT Received On 10/23/23 PT Missed Visit Reason Procedure/testing/appointment (Pt is currently on PD - nursing will notify when pt is finished.) DING ADMIN * Saulo Kimball COTA - 10/23/2023 7:10 AM CST Occupational Therapy 10/23/23 0710 General Session Type Treatment OT Received On 10/23/23 Safe Environment Arm band checked Subjective Agreeable to Therapy Subjective Comment Patient reports being tired this morning. Precautions Precautions Cardiac sternal;Fall risk;Drains Pain Assessment Pain Assessment No/denies pain Pain Score (reports throat discomfort, provided with as needed lozenge available in room) Clinical Progression Not changed Response to Interventions Partial pain relief Grooming Grooming: Where assessed Chair Grooming: Level of assistance Standby Assist Grooming: Assistance with Wash/dry face Bathing Bathing: Where assessed Sitting;Standing;Chair Bathing: Level of assistance Minimum Assist (Exhibits decreased endurance and shortness of breath with stable vitals during standing component.) Bathing: Assistance with Buttocks;Perineal area;Right arm;Left arm Bath (No fully assessed. Based on prior interventions, patient would benefit from long handled sponge due to difficulty accessing lower legs.) Bed Mobility 1 Bed Mobility Comments 1 SBA supine to sit with head of bed raise with moderate verbal cues for sternal precautions and increased time due to decreased endurance Transfer 1 Trials/Comments 1 Minimal assist sit to/from stand from EOB with moderate verbal cues for hand placement secondary to sternal precautions Transfers 2 Trials/Comments 2 Minimal assist bed to recliner with wheeled walker taking several steps with assist for safety and management of lines and wires Cognition Overall Cognitive Status WFL Arousal/Alertness Lethargic;Alert;Appropriate responses to stimuli Memory Appears intact Current communication Appears Intact Orientation Oriented X4 (person, place, time, situation) Following Commands Follows one step commands without difficulty Awareness of Errors Assistance required to identify errors made;Decreased awareness of errors (Moderate cues for sternal precautions) Insight Decreased awareness of deficits Activity Tolerance Activity Tolerance Comments Requires rest breaks due to SOB. HR of 82 at rest in supine at beginning of session, with BP of 131/68. 95% O2 saturation on room air Assessment Prognosis Good Problem List Decreased upper extremity strength;Decreased endurance;Visual deficit;Decreased functional mobility;Decreased ADL independence;Decreased IADL independence Barriers to Discharge Current Mobility Status;Current ADL Status Recommendation/Plan OT Recommendation (S) Inpatient Rehab Facility Patient at high risk for Injury due to decreased ability to care for self;Injury due to balance deficits;Injury at home as patient has not returned to prior level of function;Falls Recommend Inpatient Rehab/Acute Rehab due to Ability to actively participate in intensive therapy 3hours/day, 5 days/week or 900 minutes per week;Highly motivated to participate in therapy;Not at baseline due to impaired ability to complete ADLs;Impaired ability to complete functional mobility;Requires greater than 25% physical assistance with most mobility tasks;Requires greater than 25% physical assistance with most ADL tasks;Requires multiple therapy disciplines to address functional deficits OT Frequency during current admission 3-5x/wk Treatment/Interventions during current admission ADL/IADL retraining;Balance Training;Bed mobility;Endurance training;Functional activity;Functional mobility training;Functional transfer training Progress during current admission Progressing toward goals Education: Patient has been educated on the role of OT, safety, precautions, ADL training, mobilitytraining, body mechanics, and energy conservation. Education completed via verbal instruction and return demonstration. Patient verbalized understanding and needs ongoing reinforcement Multi-Disciplinary Problems (from Occupational Therapy) Active Problems Problem: OT Misc Start Date: 10/19/23 Goal Start Date Expected End Date End Date OT LTG 1 Pt will complete UE/LE dressing modified independent. 10/19/23 10/26/23 -- Goal Start Date Expected End Date End Date OT LTG 2 Pt will complete bathing with transfer modified independent. 10/19/23 10/26/23 -- Goal Start Date Expected End Date End Date OT LTG 3 Pt will complete toileting with transfer modified independent. 10/19/23 10/26/23 -- Goal Start Date Expected End Date End Date OT LTG 4 Pt will complete grooming at sink modified independent. 10/19/23 10/26/23 -- Goal Start Date Expected End Date End Date OT LTG 5 Pt will adhere to sternal precautions while completing transfers, mobility, and ADL tasks.10/19/23 10/26/23 -- Cosigned by Suzie Aiken OT at 10/23/2023 9:51 AM BUILDING ADMIN DING ADMIN DING ADMIN * Bartolo Solorio MD - 10/23/2023 6:38 AM CST Cardiology Inpatient Progress Note [facility] SUBJECTIVE: Pt had no acute events overnight. Pain remains well-controlled, and he currently has no complaints. OBJECTIVE: Vitals: 10/22/23 1601 10/22/234 10/23/23 0032 10/23/23 0401 BP: 157/95 118/87 120/62 130/64 BP Location: Right arm Right arm Right arm Right arm Patient Position: Reclining Pulse: 93 76 83 87 Resp: 18 18 18 18 Temp: 36.3 ??C (97.4 ??F) 37.3 ??C (99.1 ??F) 37.1 ??C (98.7 ??F) TempSrc: Oral SpO2: 95% 94% 93% 97% Weight: Height: General: AOx3, No acute distress. Cardiac: Irregularly irregular with II/ BRINDA. Normal S1 and +S2 click. No JVD. Vascular: Pulses are palpable in all extremities. No carotid bruits. Lungs: Clear to auscultation (B). Abdomen: Soft, NT/ND, +BS Ext: Warm without edema. No cyanosis or clubbing. ASSESSMENT/PLAN: CAD - prior SC with multiple PCI - LHC showed multivessel disease - LVEF dropped to ~25% (was 65% in 05/2022) - s/p CABG x3 and AVR on 10/17/23 with BRICE to LAD, SVG to OM, SVG to PDA Aortic Stenosis - replaced during CABG with 25 mm OnX mechanical prosthesis - INR noted to be 4.25 today with dosing per pharmacy Hypertension - blood pressure is adequately controlled on his current regimen Dyslipidemia - stable on Atorvastatin 80 mg and Ezetimibe 10 mg DM1 - stable with management per primary team ESRD - stable on PD per Nephrology Paroxysmal Atrial Fibrillation - occurred in 06/2022 during hospitalization - has had intermittent arrhythmia this admission - rates have been controlled throughout - was on apixaban -> heparin -> wafarin with mechanical valve DVT - h/o RLE in 2017 - was on apixaban -> heparin -> wafarin with mechanical valve Bartolo Solorio MD, [facility], [facility] Heart [facility] Vascular 10/23/2023 6:38 AM DING ADMIN * Ron Martinez MD - 10/22/2023 8:57 PM CST Images from the original note were not included. Nephrology Juvenal Garvin Jr. - 1970 Primary : Aditya Correa MD History and interval events: 53-year-old gentleman with history of type 1 diabetes mellitus on insulin pump, CHF, CAD, ESRD on peritoneal dialysis initially presented to [facility] in [facility] on October 09 for symptoms of general malaise for the past 4 days prior to admission. Patient was having symptoms of nausea with dry heaves. He presented hemodynamically stable. His glucose was measured to be 584, beta hydroxybutyrate 2.9 with an anion gap of 19. Patient was transferred to the ICU for insulin dripand DKA management. During this hospitalization his troponin was measured to be elevated prompting a cardiology consultation which lead to a C. Results were notable for severe CAD and he was recommended to seek surgical revascularization evaluation prompting transfer to this facility. He missed his peritoneal dialysis last evening during transfer. He has been on peritoneal dialysis for approximately 2 years and tolerating this well under the care of Dr. Reyes. He does make some urine. S/P 3v CABG and Mech AVR 10/17 Warfarin started for history of RLE DVT. On heparin gtt PD CCPD on 10/20/23 complicated by over 5 hour lost-dwell time and frequent alarms ( I was not notified until this AM). PD RN evaluated this AM and noted significant fibrin in effluent. Heparin addedto Peritoneal dialysate 10/21/23 PD rx went well last night: Initial drain and total UF good overnight, with no Lost Dwell and no low drain alarms. Medication: Current medication list reviewed Intake and Output Summary: Intake/Output Summary (Last 24 hours) at 10/22/20232056 Last data filed at 10/22/2023 1835 Gross per 24 hour Intake 210 ml Output 3590 ml Net -3380 ml Vital Signs: Vitals: 10/22/232033 BP: 118/87 Pulse: 76 Resp: 18 Temp: 37.3 ??C (99.1 ??F) SpO2: 94% Physical Exam: General Drowsy, on NC H&N No visible JVD Eyes Pupils symmetrical with no scleral icterus Chest No SOB Heart Reg Abdomen Soft and non tender PD catheter present Extremeties +2 lower extremity edema Skin No rash Neuro Nonfocal Mental status Alert and conversant CBC: Recent Labs Lab Units 10/22/23 0031 10/21/23 0140 10/20/23 0021 WBC K/cumm 10.6* 8.2 8.8 HEMOGLOBIN g/dL 8.5* 8.0* 8.3* HEMATOCRIT % 27.2* 25.6* 26.2* PLATELETS K/cumm 201 185 149* RFP: Recent Labs Lab Units 10/22/23 0031 10/21/23 0140 10/20/23 0021 10/19/23 1444 10/19/23 0211 SODIUM mmol/L 134* 134* 137 -- 138 POTASSIUM PLASMA mmol/L 4.3 4.5 4.4 -- 4.4 CHLORIDE mmol/L 93* 93* 96* -- 97 CO2 mmol/L 21* 22 21* -- 21* BUN SERUM mg/dL 87* 81* 77* -- 74* CREATININE mg/dL 11.33* 11.40* 11.28* -- 10.85* CALCIUM mg/dL 8.8 8.6 8.9 -- 9.0 PHOSPHORUS PLASMA mg/dL 7.3* 8.2* 8.9* -- 8.3* ALBUMIN g/dL 2.8* 2.7* 2.8* 3.0* 3.1* Impression and Recommendations: 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 Multivessel coronary artery disease with aortic stenosis s/p CABG x 3 and AVR on 10/17 Type 1 diabetes mellitus Hypertension Anemia of chronic kidney disease Continue PD as CCPD, with last fill of icodextrin Continue heparin in all PD fluids (500u per liter) - note: this is not systemically absorbed to anyappreciable extent Oral loop diuretic - increase to BID Bowel regimen Start CORRINE weekly Ron Martinez MD [facility]: MD Chula Domínguez PA Graeme Mindel, MD Justin Krafft, PA Derek Larson, MD FASN Rose Mattli, NP Rohan Devanpalli, MD Candace Shirley, ROBERTO [address] - [address] [place] [address] [id number] [phone] Office [phone] - Fax DING ADMIN * Yolanda Campos PA - 10/22/2023 5:09 PM CST Cardiothoracic Surgery Daily Progress Procedure: Moderate to severe symptomatic aortic valve stenosis and severe 3 vessel coronary arterydisease s/p Aortic valve replacement, OnX mechanical prosthesis and Coronary artery bypass graftingx 3 with sternal plating on 10/17/23 Interval History: The patient continues to be in / out of rate controlled atrial fibrillation this morning. He reports feeling well overall. Nursing staff reports him to have generalize weakness. Scheduled Medications: acetaminophen, 1,000 mg, oral, Q6H ASHLEY aspirin, 81 mg, oral, Daily atorvastatin, 80 mg, oral, Daily calcitRIOL, 0.25 mcg, oral, Daily calcium acetate(phosphat bind), 1,334 mg, oral, TID with meals docusate sodium, 100 mg, oral, BID epoetin genia-epbx, 10,000 Units, subcutaneous, Weekly - 2100 ezetimibe, 10 mg, oral, Daily gentamicin, , topical, Daily insulin lispro, 0-10 Units, subcutaneous, QID (with meals & nightly) insulin lispro, 6 Units, subcutaneous, TID with meals insulin NPH, 20 Units, subcutaneous, Daily insulin NPH, 40 Units, subcutaneous, Nightly metoprolol tartrate, 6.25 mg, oral, BID pantoprazole DR, 40 mg, oral, Daily polyethylene glycol, 17 g, oral, Daily senna, 1 tablet, oral, BID sodium chloride 0.9%, 0.5-20 mL, intra-catheter, Q8H ASHLEY sodium chloride 0.9%, 0.5-20 mL, intra-catheter, Q8H ASHLEY torsemide, 100 mg, oral, BID DIURETIC OBJECTIVE Vitals: Most Recent: Vitals: 10/22/23 1601 BP: 157/95 Pulse: 93 Resp: 18 Temp: 36.3 ??C (97.4 ??F) SpO2: 95% 24hr Min/Max: Temp Min: 36.3 ??C (97.4 ??F) Max: 37.8 ??C (100 ??F) Pulse Min: 68 Max: 93 BP Min: 134/65 Max: 157/95 Resp Min: 18 Max: 19 SpO2 Min: 90 % Max: 96 % I/O: Intake/Output Summary (Last 24 hours) at 10/22/2023 1709 Last data filed at 10/22/2023 1100 Gross per 24 hour Intake 200 ml Output 3590 ml Net -3390 ml Physical Exam: Gen: awake and alert, sitting up in chair. No distress Lungs: normal effort CV: NSR Incision c/d/i Mild bilat LE edema Lab/Radiology/Diagnostic Review: Recent Labs Lab Units 10/22/23 0031 WBC K/cumm 10.6* HEMOGLOBIN g/dL 8.5* HEMATOCRIT % 27.2* PLATELETS K/cumm 201 Recent Labs Lab Units 10/22/23 1249 10/22/23 0812 10/22/23 0031 SODIUM mmol/L -- -- 134* POTASSIUM PLASMA mmol/L -- -- 4.3 CHLORIDE mmol/L -- -- 93* CO2 mmol/L -- -- 21* ANIONGAP mmol/L -- -- 20* BUN SERUM mg/dL -- -- 87* CREATININE mg/dL -- -- 11.33* GLUCOSE mg/dL -- -- 212* POC GLUCOSE MONITOR mg/dL 177* < > -- CALCIUM mg/dL -- -- 8.8 < > = values in this interval not displayed. Recent Labs Lab Units 10/22/23 0031 10/21/23 0140 10/20/23 0322 APTT sec -- -- 114* INR 4.25* < > -- < > = values in this interval not displayed. CXR: IMPRESSION: Comparison is made to single view chest radiograph dated 10/21/2023. Sternotomy wires and sternal plates are unchanged. Right internal jugular central venous catheter tip overlies the superior vena cava. Persistent small lung volumes with bilateral subsegmental atelectasis. Trace left pleural effusion. No pneumothorax. Cardiomediastinal silhouette is stable ASSESSMENT Moderate to severe symptomatic aortic valve stenosis and severe 3 vessel coronary artery disease s/p Aortic valve replacement, OnX mechanical prosthesis and Coronary artery bypass grafting x 3 with sternal plating on 10/17/23 History CAD s/p stenting ESRD on PD History DVT on chronic anticoagulation Acute on chronic systolic congestive heart failure, EF 20-30% Paroxysmal atrial fibrillation Type 1 diabetes mellitus with recent DKA HTN Hyperlipidemia Sleep apnea Acute blood loss anemia, chronic anemia PLAN Continue coumadin dosing for anticoagulation (current INR supra-therapeutic at 4.25) Continue ASA, plan for transition to plavix at discharge Continue metoprolol, increase dose Continue statin and zetia Insulin regimen per endocrinology recommendations PD per renal recommendations DVT prophylaxis Patient discussed with LESLY Danielle 10/22/2023 DING ADMIN * Makayla Diallo [facility] - 10/22/2023 9:06 AM CST Warfarin monitoring Lab Results Component Value Date/Time INR 4.25 (H) 10/22/2023 12:31 AM HGB 8.5 (L) 10/22/2023 12:31 AM HGB 8.1 (L) 10/17/2023 12:26 PM HCT 27.2 (L) 10/22/2023 12:31 AM HCT 30.0 (L) 06/05/2022 03:22 PM LABPLAT 201 10/22/2023 12:31 AM Warfarin dose today: 0 mg -INR decreased but remains supratherapeutic following significant increase yesterday Makayla Diallo, PharmD [employer] 10/22/23 9:06 AM DING ADMIN * Bartolo Solorio MD - 10/22/2023 6:43 AM CST Cardiology Inpatient Progress Note [facility] SUBJECTIVE: Pt had no acute events overnight. He says that he did not sleep well but has no particular complaints and reports that pain remains controlled. OBJECTIVE: Vitals: 10/21/23 1500 10/21/23 2120 10/22/23 0011 10/22/23 0347 BP: 138/54 146/69 146/82 BP Location: Right arm Patient Position: Pulse: 72 68 84 Resp: 18 19 18 Temp: 36.9 ??C (98.5 ??F) 37 ??C (98.6 ??F) 36.6 ??C (97.8 ??F) TempSrc: Oral SpO2: 90% 90% 91% 94% Weight: Height: General: AOx3, No acute distress. Cardiac: Irregularly irregular with II/ BRINDA. Normal S1 and +S2 click. No JVD. Vascular: Pulses are palpable in all extremities. No carotid bruits. Lungs: Clear to auscultation (B). Abdomen: Soft, NT/ND, +BS Ext: Warm without edema. No cyanosis or clubbing. ASSESSMENT/PLAN: CAD - prior SC with multiple PCI - [facility] showed multivessel disease - LVEF dropped to ~25% (was 65% in 05/2022) - s/p CABG x3 and AVR on 10/17/23 with BRICE to LAD, SVG to OM, SVG to PDA Aortic Stenosis - replaced during CABG with 25 mm OnX mechanical prosthesis - INR noted to be 4.25 today with dosing per pharmacy Hypertension - blood pressure is adequately controlled on his current regimen Dyslipidemia - Stable on Atorvastatin 80 mg and Ezetimibe 10 mg DM1 - stable with management per primary team Paroxysmal Atrial Fibrillation - occurred in 06/2022 during hospitalization - has had intermittent arrhythmia this admission - rates have been controlled throughout - was on apixaban -> heparin -> wafarin with mechanical valve DVT - h/o RLE in 2017 - was on apixaban -> heparin -> wafarin with mechanical valve Bartolo Solorio MD, [facility] Heart and Vascular 10/22/2023 6:43 AM DING ADMIN * Yolanda Campos PA - 10/21/2023 4:19 PM CST Cardiothoracic Surgery Daily Progress Procedure: Moderate to severe symptomatic aortic valve stenosis and severe 3 vessel coronary arterydisease s/p Aortic valve replacement, OnX mechanical prosthesis and Coronary artery bypass graftingx 3 with sternal plating on 10/17/23 Interval History: The patient has been in / out of rate controlled atrial fibrillation overnight and this morning. He reports feeling well overall. Scheduled Medications: acetaminophen, 1,000 mg, oral, Q6H ASHLEY aspirin, 81 mg, oral, Daily atorvastatin, 80 mg, oral, Daily calcitRIOL, 0.25 mcg, oral, Daily calcium acetate(phosphat bind), 1,334 mg, oral, TID with meals docusate sodium, 100 mg, oral, BID epoetin genia-epbx, 10,000 Units, subcutaneous, Weekly - 2100 ezetimibe, 10 mg, oral, Daily gentamicin, , topical, Daily insulin lispro, 0-10 Units, subcutaneous, QID (with meals & nightly) insulin lispro, 6 Units, subcutaneous, TID with meals insulin NPH, 15 Units, subcutaneous, Daily insulin NPH, 30 Units, subcutaneous, Nightly metoprolol tartrate, 6.25 mg, oral, BID pantoprazole DR, 40 mg, oral, Daily polyethylene glycol, 17 g, oral, Daily scopolamine, 1 patch, transdermal, Once senna, 1 tablet, oral, BID sodium chloride 0.9%, 0.5-20 mL, intra-catheter, Q8H ASHLEY sodium chloride 0.9%, 0.5-20 mL, intra-catheter, Q8H ASHLEY torsemide, 100 mg, oral, BID DIURETIC OBJECTIVE Vitals: Most Recent: Vitals: 10/21/23 1500 BP: Pulse: Resp: Temp: SpO2: 90% 24hr Min/Max: Temp Min: 36.5 ??C (97.7 ??F) Max: 36.8 ??C (98.2 ??F) Pulse Min: 59 Max: 71 BP Min: 123/58 Max: 129/57 Resp Min: 16 Max: 18 SpO2 Min: 89 % Max: 99 % I/O: Intake/Output Summary (Last 24 hours) at 10/21/2023 1620 Last data filed at 10/21/2023 1320 Gross per 24 hour Intake 40 ml Output 915 ml Net -875 ml Physical Exam: Gen: awake and alert, sitting up in chair. No distress Lungs: normal effort CV: NSR Incision c/d/i Mild bilat LE edema Lab/Radiology/Diagnostic Review: Recent Labs Lab Units 10/21/23 0140 WBC K/cumm 8.2 HEMOGLOBIN g/dL 8.0* HEMATOCRIT % 25.6* PLATELETS K/cumm 185 Recent Labs Lab Units 10/21/23 1229 10/21/23 0806 10/21/23 0140 SODIUM mmol/L -- -- 134* POTASSIUM PLASMA mmol/L -- -- 4.5 CHLORIDE mmol/L -- -- 93* CO2 mmol/L -- -- 22 ANIONGAP mmol/L -- -- 19* BUN SERUM mg/dL -- -- 81* CREATININE mg/dL -- -- 11.40* GLUCOSE mg/dL -- -- 289* POC GLUCOSE MONITOR mg/dL 266* < > -- CALCIUM mg/dL -- -- 8.6 < > = values in this interval not displayed. Recent Labs Lab Units 10/21/23 0140 10/20/23 0322 APTT sec -- 114* INR 4.76* -- CXR: FINDINGS: Sternal wires and plates indicate prior cardiac surgery. Right internal jugular central venous catheter ends in the superior vena cava. There is left lower lobe atelectasis. There is no pneumothorax. Small left effusion is present. The heart is enlarged. Pulmonary vascularity is normal. Since 10/20/2023, little change has occurred. IMPRESSION: Small left effusion and bilateral lower lobe atelectasis. ASSESSMENT Moderate to severe symptomatic aortic valve stenosis and severe 3 vessel coronary artery disease s/p Aortic valve replacement, OnX mechanical prosthesis and Coronary artery bypass grafting x 3 with sternal plating on 10/17/23 History CAD s/p stenting ESRD on PD History DVT on chronic anticoagulation Acute on chronic systolic congestive heart failure, EF 20-30% Paroxysmal atrial fibrillation Type 1 diabetes mellitus with recent DKA HTN Hyperlipidemia Sleep apnea Acute blood loss anemia, chronic anemia PLAN Discontinue chest tube Continue coumadin dosing for anticoagulation (current INR supra-therapeutic at 4.76) Continue ASA, plan for transition to plavix at discharge Continue statin and zetia Insulin regimen per endocrinology recommendations PD per renal recommendations DVT prophylaxis Patient discussed with LESLY Danielle 10/21/2023 DING ADMIN DING ADMIN * Gina Mason DPT - 10/21/2023 9:05 AM CST Physical Therapy 10/21/23 0905 General Chart Reviewed Yes Session Type Evaluation PT Received On 10/21/23 Safe Environment Arm band checked;Patient found in supine;Gait belt utilized for all out of bed mobility Subjective Agreeable to Therapy Additional Pertinent History 53 y/o M presents for surgical intervention on 10/14/23 from [facility]. Pt is s/p CABG x 3 (SVG-PDA, SVG-OM, BRICE-LAD) and mechanical AVR on 10/[address] Valero. Pt has history of ESRD on PD, CAD s/p PCI, SC, and DVT on chronic anticoagulation, Type 1 DM, HTN. Family/Caregiver Present No Physical Therapy-Patient Goal return to PLOF Precautions Precautions Cardiac sternal;Fall risk;Drains Precaution Comments reviewed sternal precautions Home Living Type of Home House Home Layout One level Home Access Stairs to enter without rails Entrance Stairs-Number of Steps 1 Home Mobility Equipment-Available Wheeled walker;Single point cane Home Mobility Equipment-Currently Using Single point cane Additional Comments uses single point cane as needed due to bilateral chronic knee pain Prior Function Level of [place] Independent with ADLs;Independent functional transfers;Independent with ambulation Lives With Son Receives Help From Family Vocational/Occupation 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 [employer] Fall within the last 6 months No Pain Assessment Pain Assessment 0-10 Pain Score 1 Pain Location Sternum Clinical Progression Not changed (08/30) Cognition Orientation Oriented X4 (person, place, time, situation) Sensation Numbness/Tingling Yes Sensation Comments patient reports BLE numbness, is able to identify light touch but is diminished Motor Planning Motor Planning Appears intact Bed Mobility 1 Bed Mobility From 1 Supine Bed Mobility Type 1 To Bed Mobility to 1 Edge of bed Level of Assistance 1 Moderate Assist Bed Mobility Comments 1 cues for sternal precautions, log roll, increased time to complete Transfer 1 Transfer From 1 Sit Transfer Type 1 To and from Transfer to 1 Stand Transfer Device 1 Wheeled walker Transfer Level of Assistance 1 Moderate Assist Trials/Comments 1 assist for force production, cues for anterior weight shift and sternal precautions Ambulation 1 Distance (ft) 1 20' Surface 1 Level tile Device 1 Wheeled walker Assistance 1 Minimum Assist Ambulation Comments 1 patient ambulates with slow david, difficulty advancing BLE, reduced knee flexion in swing phase of gait bilaterally, reduced step length and foot clearance bilaterally, cues for posture, pacing, pursed lip breathing, SpO2 90% on room air PT Treatment/Exercise Comments PT Treatment/Exercise Comments pre activity: HR 59, SpO2 90%, BP 124/59, post activity: HR 83, [id number] on room air, BP 130/53 Safe Environment End of Therapy Session Safe Environment End of Therapy Session Patient left in recliner;RN notified;Call light within reach;Overbed table within reach Assessment Prognosis Good Problem List Gait deviations;Decreased strength;Decreased endurance;Decreased range of motion;Impaired balance;Decreased mobility Barriers to Discharge Current Mobility Status Plan Plan Plan of care initiated;If this is the last note, consider this the discharge summary Recommendation/Plan PT Recommendation/Plan (S) Inpatient Rehab Facility Recommend Inpatient Rehab/Acute Rehab due to Ability to actively participate in intensive therapy 3hours/day, 5 days/week or 900 minutes per week;Highly motivated to participate in therapy;Impaired ability to complete functional mobility;Likely to return to the community at discharge with support system in place;Requires greater than 25% physical assistance with most mobility tasks;Requires multiple therapy disciplines to address functional deficits PT Frequency during current admission 3-5x/wk Treatment/Interventions during current admission Balance Training;Bed mobility;Endurance training;Equipment eval/education;Functional activity;Functional transfer training;Gait training;Neuromuscularre- education;Range of motion;Stair training;Therapeutic activity;Therapeutic exercise;Transfer training PT Evaluation Complete Yes Education: Patient has been educated on the role of PT, safety , precautions, and mobility training. Education completed via explanation, teach back, and demonstration. Patient verbalized understanding, demonstrated understanding, and needs ongoing reinforcement Multi-Disciplinary Problems (from Physical Therapy) Active Problems Problem: PT Misc Start Date: 10/21/23 Goal Start Date Expected End Date End Date PT LTG - Mis 1 10/21/23 11/04/23 -- Goal Details: Patient will perform supine<>sit Independent. Goal Start Date Expected End Date End Date PT LTG - Mis 2 10/21/23 11/04/23 -- Goal Details: Patient will perform bed<>chair transfer Modified Independent with ww. Goal Start Date Expected End Date End Date PT LTG - Mis 3 10/21/23 11/04/23 -- Goal Details: Patient will ambulate 350 feet Modified Independent with wheeled walker. Goal Start Date Expected End Date End Date PT LTG - Mis 4 10/21/23 11/04/23 -- Goal Details: Patient will ambulate up/down 1 step Modified Independent as needed to enter and exithome. DING ADMIN * Ron Martinez MD - 10/21/2023 8:48 AM CST Images from the original note were not included. Nephrology Juvenal Garvin Jr. - 1970 Primary : Aditya Correa MD History and interval events: 53-year-old gentleman with history of type 1 diabetes mellitus on insulin pump, CHF, CAD, ESRD on peritoneal dialysis initially presented to [facility] in [facility] on October 09 for symptoms of general malaise for the past 4 days prior to admission. Patient was having symptoms of nausea with dry heaves. He presented hemodynamically stable. His glucose was measured to be 584, beta hydroxybutyrate 2.9 with an anion gap of 19. Patient was transferred to the ICU for insulin dripand DKA management. During this hospitalization his troponin was measured to be elevated prompting a cardiology consultation which lead to a C. Results were notable for severe CAD and he was recommended to seek surgical revascularization evaluation prompting transfer to this facility. He missed his peritoneal dialysis last evening during transfer. He has been on peritoneal dialysis for approximately 2 years and tolerating this well under the care of Dr. Reyes. He does make some urine. S/P 3v CABG and Mech AVR 10/17 Warfarin started for history of RLE DVT. On heparin gtt PD CCPD complicated by over 5 hour lost-dwell time and frequent alarms ( I was not notified untilthis AM). PD RN evaluated this AM and noted significant fibrin in effluent. Medication: Current medication list reviewed Intake and Output Summary: Intake/Output Summary (Last 24 hours) at 10/21/2023 0848 Last data filed at 10/21/2023 0837 Gross per 24 hour Intake 700 ml Output 2287 ml Net -1587 ml Vital Signs: Vitals: 10/21/23 0726 BP: 125/61 Pulse: 59 Resp: 16 Temp: 36.6 ??C (97.8 ??F) SpO2: 99% Physical Exam: General Drowsy, on NC H&N No visible JVD Eyes Pupils symmetrical with no scleral icterus Chest No SOB Heart Reg Abdomen Soft and non tender PD catheter present Extremeties +2 lower extremity edema Skin No rash Neuro Nonfocal Mental status Alert and conversant CBC: Recent Labs Lab Units 10/21/23 0140 10/20/23 0021 10/19/23 0211 WBC K/cumm 8.2 8.8 8.9 HEMOGLOBIN g/dL 8.0* 8.3* 8.7* HEMATOCRIT % 25.6* 26.2* 27.4* PLATELETS K/cumm 185 149* 157 RFP: Recent Labs Lab Units 10/21/23 0140 10/20/23 0021 10/19/23 1444 10/19/23 0211 10/18/23 0154 SODIUM mmol/L 134* 137 -- 138 136 POTASSIUM PLASMA mmol/L 4.5 4.4 -- 4.4 4.0 CHLORIDE mmol/L 93* 96* -- 97 98 CO2 mmol/L 22 21* -- 21* 20* BUN SERUM mg/dL 81* 77* -- 74* 71* CREATININE mg/dL 11.40* 11.28* -- 10.85* 10.47* CALCIUM mg/dL 8.6 8.9 -- 9.0 9.2 PHOSPHORUS PLASMA mg/dL 8.2* 8.9* -- 8.3* 6.5* ALBUMIN g/dL 2.7* 2.8* 3.0* 3.1* 2.6* Impression and Recommendations: 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 - [address] [place], [place] [address] [phone] - Office [phone] - Fax DING ADMIN * Bartolo Solorio MD - 10/21/2023 8:08 AM CST Cardiology Inpatient Progress Note [facility] SUBJECTIVE: Pt had no acute events overnight and was noted to convert to sinus rhythm at ~0445. He states that he is doing well with good pain control. OBJECTIVE: Vitals: 10/20/23202410/20/23 2247 10/21/23 0100 10/21/23 0726 BP: 129/57 123/58 125/61 BP Location: Right arm Right arm Patient Position: HOB 30 degrees Pulse: 71 70 65 Resp: 18 18 16 Temp: 36.8 ??C (98.2 ??F) 36.6 ??C (97.8 ??F) TempSrc: SpO2: (!) 89% 93% 97% 99% Weight: Height: General: AOx3, No acute distress. Cardiac: RRR with II/ BRINDA. Normal S1 and +S2 click. No JVD. Vascular: Pulses are palpable in all extremities. No carotid bruits. Lungs: Clear to auscultation (B). Abdomen: Soft, NT/ND, +BS Ext: Warm without edema. No cyanosis or clubbing. ASSESSMENT/PLAN: CAD - prior SC with multiple PCI - LHC showed multivessel disease - LVEF dropped to ~25% (was 65% in 05/2022) - s/p CABG x3 and AVR on 10/17/23 with BRICE to LAD, SVG to OM, SVG to PDA Aortic Stenosis - replaced during CABG with 25 mm OnX mechanical prosthesis - INR noted to be 4.76 today with dosing per pharmacy Hypertension - blood pressure is at goal on his current regimen Dyslipidemia - Stable on Atorvastatin 80 mg and Ezetimibe 10 mg DM1 - stable with management per primary team Paroxysmal Atrial Fibrillation - occurred in 06/2022 during hospitalization - has had intermittent arrhythmia this admission - was on apixaban -> heparin -> wafarin with mechanical valve DVT - h/o RLE in 2017 - was on apixaban -> heparin -> wafarin with mechanical valve Bartolo Solorio MD, [facility], [facility] 10/21/2023 8:08 AM DING ADMIN * Dominique Fuentes, IT INTEGRATION ARCHITECT - 10/21/2023 12:29 AM CST 10/20/232246 NPPV Information NPPV Mode CPAP NPPV Status Refused NPPV Type V-60 NPPV ID L RT Therapist Assist Charges RT Therapist Assist NPPV 1 Encouraged patient to have his CPAP unit brought in since intolerable of ours. DING ADMIN * Carly Spencer, RD - 10/20/2023 3:27 PM CST Nutrition Follow-up Progress Note Encounter Date: 10/20/23 3:30 PM Nutrition Progress Summary: Patient is a 53 y.o. male. Admit Dx: CAD in [place] artery [I25.10]. Admitted on 10/13/2023. Pt s/p CABG/AVR 10/17/23. PMH includes Type I DM, ESRD on PD. Pt reports he is tolerating his meals and drinking the Nepro supplement. Increased protein intake encouraged. Pt new on Coumadin. Educated pt on Coumadin/diet interaction. Pt is familiar with his diabetic renal diet and plans to improve his adherence to diet. Service Tech consult noted. Pt with good understanding of his nutritional goals. Objective Dietary Orders (From admission, onward) Start Ordered 10/19/23 2100 Bedtime snack At bedtime Comments: If bedtime BG is less than 100mg/dl, give patient a 15 gram carbohydrate snack. 10/19/23 1908 10/19/23 1147 Oral Nutrition Supplements Select Supplement: Nepro - Any Flavor With Breakfast and Dinner Question: Select Supplement: Answer: Nepro - Any Flavor 10/19/23 1146 10/18/23 1212 Adult Diet Restricted; Consistent Carbohydrate; Renal Diet effective now Question Answer Comment ([facility]) Diet type Restricted Diabetic: Consistent Carbohydrate Renal: Renal 10/18/23 1211 10/17/23 2100 Bedtime snack At bedtime Comments: If bedtime BG is less than 100mg/dl, give patient a 15 gram carbohydrate snack. 10/17/23 0113 Anthropometrics Weight: 126.2 kg (278 lb 3.5 oz) Admission Weight : 123.1 kg Weight Change: 1.70 kg (3.74 lbs) IBW/kg (Calculated) : 75.3 kg Height: 177.8 cm (5' 10 ) Weight in (lb) to have BMI = 25: 173.9 BMI (Calculated): 39.9 Intake/Output Summary (Last 24 hours) at 10/20/2023 1530 Last data filed at 10/20/2023 1200 Gross per 24 hour Intake 1952 ml Output 1717 ml Net 235 ml Medications and Lab Review: Scheduled Meds: aspirin, 81 mg, oral, Daily atorvastatin, 80 mg, oral, Daily calcitRIOL, 0.25 mcg, oral, Daily calcium acetate(phosphat bind), 1,334 mg, oral, TID with meals docusate sodium, 100 mg, oral, BID epoetin genia-epbx, 10,000 Units, subcutaneous, Weekly - 2100 ezetimibe, 10 mg, oral, Daily gentamicin, , topical, Daily insulin lispro, 0-10 Units, subcutaneous, TID with meals insulin lispro, 3 Units, subcutaneous, TID with meals insulin NPH, 15 Units, subcutaneous, Daily insulin NPH, 30 Units, subcutaneous, Nightly pantoprazole DR, 40 mg, oral, Daily polyethylene glycol, 17 g, oral, Daily scopolamine, 1 patch, transdermal, Once senna, 1 tablet, oral, BID sodium chloride 0.9%, 0.5-20 mL, intra-catheter, Q8H ASHLEY sodium chloride 0.9%, 0.5-20 mL, intra-catheter, Q8H ASHLEY torsemide, 100 mg, oral, Daily warfarin, 0.5 mg, oral, Once - 1800 Continuous Infusions: Dianeal low calcium-dextrose 2.5 % 6,000 mL dialysis solution, sodium chloride 0.9%, 10 mL/hr PRN Meds: acetaminophen OR [DISCONTINUED] acetaminophen OR [DISCONTINUED] acetaminophen bisacodyL sodium chloride 0.9% dextrose OR dextrose dextrose OR dextrose glucagon glucagon magnesium sulfate ondansetron potassium chloride ER OR [DISCONTINUED] potassium chloride potassium chloride ER OR [DISCONTINUED] potassium chloride ramelteon sodium chloride 0.9% sodium chloride 0.9% sodium chloride 0.9% Sodium Date Value Ref Range Status 10/20/2023 137 135 - 145 mmol/L Final Potassium, pl Date Value Ref Range Status 10/20/2023 4.4 3.3 - 4.9 mmol/L Final BUN Date Value Ref Range Status 10/20/2023 77 (H) 6 - 25 mg/dL Final Creatinine Date Value Ref Range Status 10/20/2023 11.28 (H) 0.80 - 1.30 mg/dL Final Phosphorus, pl Date Value Ref Range Status 10/20/2023 8.9 (H) 2.3 - 4.5 mg/dL Final Albumin Date Value Ref Range Status 10/20/2023 2.8 (L) 3.5 - 5.0 g/dL Final Magnesium Date Value Ref Range Status 10/20/2023 2.4 1.4 - 2.5 mg/dL Final Calcium Date Value Ref Range Status 10/20/2023 8.9 8.5 - 10.3 mg/dL Final ALT Date Value Ref Range Status 10/19/2023 9 7 - 55 Units/L Final AST Date Value Ref Range Status 10/19/2023 39 10 - 50 Units/L Final Alk phos Date Value Ref Range Status 10/19/2023 104 40 - 130 Units/L Final Lipase Date Value Ref Range Status 10/19/2023 7 (L) 10 - 99 Units/L Final Lab Results Component Value Date HGBA1C 8.1 (H) 10/16/2023 Nursing Assessment: Last BM Date: 10/19/23 Bowel Sounds (All Quadrants): Hypoactive Rex Scale Score: 20 Skin Integrity: Surgical incision Surgical Site 10/17/23 Mid-line Sternum sternotomy-Negative Pressure Wound Therapy Used: Yes Nutrition Needs Calculations: Calculated Energy Needs Using Equations Weight: 126.2 kg (278 lb 3.5 oz) Height: 177.8 cm (5' 10 ) Minute Ventilation (L/min): 9.7 L/min Estimated Protein Needs Type of Weight Used for Estimated Protein : [place] Protein Needs Based on g/k.4 Total Protein Estimated Needs (gm): 105.42 Kcal/kg Type of Weight Used for Estimated Kcals: [place] Kcal/k Total Kcal/kg Estimated Needs : 2259 Current Nutrition Issues: Nutrition Diagnosis 1: Increased nutrient needs (protein) Related to: Recent surgery Evidenced by: Physical finding Nutrition Plan: Interventions: Encouragement, Medical food supplement, Education, nutrition Monitoring and Evaluation: Plan of care, Labs, PO intake, Diet-related questions Goals: Patient/caregiver able to teach back understanding of role of diet in disease process prior to discharge Diet Instructions Adult Discharge Diet Diet Type: Restrict salt intake to less than 4000 mg per day Low fat intake Diabetic renal diet. Heart healthy diet. Limit foods high in Vitamin K while taking Coumadin. High protein intake. Carly Spencer RD, LD DING ADMIN * Rehana SauloOSITO - 10/20/2023 2:40 PM CST Occupational Therapy 10/20/23 1440 General Session Type Treatment OT Received On 10/20/23 Safe Environment Arm band checked Subjective Agreeable to Therapy Subjective Comment Patient states that he is groggy. Precautions Precautions Cardiac sternal;Drains Pain Assessment Pain Assessment No/denies pain Pain Score 0 - No pain Clinical Progression Not changed Grooming Grooming: Where assessed Chair Grooming: Level of assistance Standby Assist Grooming: Assistance with Teeth care;Wash/dry face LE Dressing LE Dressing: Where assessed Sitting;Standing;Edge of bed LE Dressing: Level of assistance (Moderate assist santa/doff B socks with biztalk administrator and sock aid, Minimal assist santa/doff sweatpants with biztalk administrator) Transfer 1 Trials/Comments 1 Minimal assist sit to/from stand from recliner with wheeled walker, SBA marching in place with wheeled walker X 30 seconds Cognition Overall Cognitive Status WFL Arousal/Alertness Lethargic;Alert Memory Appears intact Current communication Appears Intact Orientation Oriented X4 (person, place, time, situation) Following Commands Follows one step commands without difficulty Safety Judgment (moderate cues for sternal precautions) Insight Fully aware of deficits Activity Tolerance Endurance (Initial BP of 124/56 in recliner with HR of 62, HR of 74 during functional standing activity) Safe Environment End of Therapy Session Safe Environment End of Therapy Session Patient left in recliner;Call light within reach;Overbed table within reach Assessment Prognosis Good Problem List Decreased upper extremity strength;Decreased endurance;Visual deficit;Decreased functional mobility;Decreased ADL independence;Decreased IADL independence Barriers to Discharge Current Mobility Status;Current ADL Status Recommendation/Plan OT Recommendation (S) Inpatient Rehab Facility Patient at high risk for Injury due to balance deficits;Injury due to reduced functional status;Falls Recommend Inpatient Rehab/Acute Rehab due to Ability to actively participate in intensive therapy 3hours/day, 5 days/week or 900 minutes per week;Highly motivated to participate in therapy;Not at baseline due to impaired ability to complete ADLs;Impaired ability to complete functional mobility;Requires greater than 25% physical assistance with most mobility tasks;Requires greater than 25% physical assistance with most ADL tasks;Requires multiple therapy disciplines to address functional deficits OT Frequency during current admission 3-5x/wk Treatment/Interventions during current admission ADL/IADL retraining;Balance Training;Bed mobility;Endurance training;Functional activity;Functional mobility training;Functional transfer training Progress during current admission Progressing toward goals OT Evaluation Complete Yes Education: Patient has been educated on the role of OT, safety, precautions, ADL training, mobilitytraining, body mechanics, energy conservation, and use of adaptive equipment/DME. Education completed via verbal instruction and return demonstration. Patient verbalized understanding, demonstrated understanding, and needs ongoing reinforcement Multi-Disciplinary Problems (from Occupational Therapy) Active Problems Problem: OT Misc Start Date: 10/19/23 Goal Start Date Expected End Date End Date OT LTG 1 Pt will complete UE/LE dressing modified independent. 10/19/23 10/26/23 -- Goal Start Date Expected End Date End Date OT LTG 2 Pt will complete bathing with transfer modified independent. 10/19/23 10/26/23 -- Goal Start Date Expected End Date End Date OT LTG 3 Pt will complete toileting with transfer modified independent. 10/19/23 10/26/23 -- Goal Start Date Expected End Date End Date OT LTG 4 Pt will complete grooming at sink modified independent. 10/19/23 10/26/23 -- Goal Start Date Expected End Date End Date OT LTG 5 Pt will adhere to sternal precautions while completing transfers, mobility, and ADL tasks.10/19/23 10/26/23 -- Cosigned by Stephanie Goodman OT at 10/21/2023 2:07 PM BUILDING ADMIN DING ADMIN DING ADMIN * Byron Olvera NP - 10/20/2023 12:45 PM CSTAssociated Order(s): Critical Care Post-Procedure Diagnose(s): 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[place] artery of [place] heart with stable angina pectoris (HCC) Images from the original note were not included. [facility] CVR Daily Progress Note- Patient: Juvenal Garvin Jr. : 1970 Age: 53 y.o. male Admitting Physician: Jaqueline Valero MD Foundry Patternmaker: Kirsten Burns MD Shift: [facility] CVR AM Interval History: NEON Admitted to the hospital on 10/13/2023 11:18 PM for CAD in [place] artery [I25.10] Hospital Course: (10/17/23) s/p CABG x 3 (SVG-PDA, SVG-OM, BRICE-LAD) and mechanical AVR (25 Bello) by Dr. Valero Temp: [36.3 ??C (97.3 ??F)-36.6 ??C (97.9 ??F)] 36.5 ??C (97.7 ??F) Pulse: [58-82] 75 BP: (114-149)/(42-95) 117/51 Resp: [12-23] 18 SpO2: [91 %-99 %] 94 % FiO2 (%): [30 %] 30 % PAP: -- CVP: 11 mmHg (10/19 0900) PCWP: -- CO: -- CI: -- SVO2: -- Pacemaker Overdrive Pacing: -- Cardiac Rhythm: Normal sinus rhythm (10/19 1045) Pacer Mode: -- NPPV Mode: CPAP (10/20/23 0316) PEEP/CPAP/EPAP Set (cmH2O): 10 cm H20 (pt comfort) Minute Ventilation (L/min): 5.5 L/min FiO2 (%): 30 % O2 Del Method: Nasal cannula FiO2 (%): 30 % O2 Flow Rate (L/min): 2 L/min Scheduled Meds: ??? aspirin, 81 mg, Daily OR [DISCONTINUED] aspirin, 325 mg, Daily OR [DISCONTINUED] aspirin, 300 mg, Daily ??? atorvastatin, 80 mg, Daily ??? calcitRIOL, 0.25 mcg, Daily ??? calcium acetate(phosphat bind), 1,334 mg, TID with meals ??? docusate sodium, 100 mg, BID OR [DISCONTINUED] docusate, 100 mg, BID ??? epoetin genia-epbx, 10,000 Units, Weekly - 2100 ??? ezetimibe, 10 mg, Daily ??? gentamicin, , Daily ??? insulin lispro, 0-10 Units, TID with meals ??? insulin lispro, 3 Units, TID with meals ??? insulin NPH, 15 Units, Daily ??? insulin NPH, 30 Units, Nightly ??? pantoprazole DR, 40 mg, Daily ??? polyethylene glycol, 17 g, Daily ??? scopolamine, 1 patch, Once ??? senna, 1 tablet, BID OR [DISCONTINUED] senna, 8.8 mg, BID ??? sodium chloride 0.9%, 0.5-20 mL, Q8H ASHLEY ??? sodium chloride 0.9%, 0.5-20 mL, Q8H ASHLEY ??? torsemide, 100 mg, Daily ??? warfarin, 0.5 mg, Once - 1800 Physical Exam: Neuro: Alert, oriented, able to follow simple commands, PERRL 3mm, CAM (-) Cardiovascular: RRR, epicardial wires vvi bu, periphery warm with palpable pulses, no significant edema Pulmonary: Breath sounds clear to auscultation bilaterally, diminished bases, normal respiratory rate and effort GI: Abdomen obese, soft, non-distended, bowel sounds active : Nguyen in place draining clear yellow urine Skin: Warm, dry, Sternal incision with OR dressing clean, dry, intact. SVG site with dermabond PENNIE. Drains: Chest tubes to -20 suction with serosanguinous drainage, no air leak. Infusions: Dianeal low calcium-dextrose 2.5 % 6,000 mL dialysis solution, sodium chloride 0.9%, 10 mL/hr PRN Meds: ??? acetaminophen, 1,000 mg OR [DISCONTINUED] acetaminophen, 1,000 mg, 1,000 mg at 10/17/23 2312 OR [DISCONTINUED] acetaminophen, 650 mg ??? bisacodyL, 10 mg ??? sodium chloride 0.9%, 30 mL ??? dextrose, 15 g OR dextrose, 250 mL ??? dextrose, 15 g OR dextrose, 250 mL ??? glucagon, 1 mg ??? glucagon, 1 mg ??? magnesium sulfate, 2 g ??? ondansetron, 4 mg, 4 mg at 10/19/23 1721 ??? potassium chloride ER, 20 mEq OR [DISCONTINUED] potassium chloride, 20 mEq ??? potassium chloride ER, 40 mEq OR [DISCONTINUED] potassium chloride, 40 mEq ??? ramelteon, 8 mg ??? sodium chloride 0.9%, 0.5-20 mL ??? sodium chloride 0.9%, 0.5-20 mL ??? sodium chloride 0.9%, 10 mL/hr Date 10/19/23699 - 10/20/2359 10/20/23699 - 10/21/23 0659 Shift [id number] 24 Hour Total 1899-0659 24 Hour Total INTAKE P.O. 360 360 480 480 I.V.(mL/kg) 102(0.8) 310(2.5) 412(3.3) IV Piggyback 500 500 Shift Total(mL/kg) 962(7.6) 310(2.5) 1272(10.1) 480(3.8) 480(3.8) OUTPUT Urine(mL/kg/hr) 54(0) 30(0) 84(0) 100 100 Drains 0 0 0 0 Other 1459 1459 1482 1482 Chest Tube 55 25 80 20 20 Shift Total(mL/kg) 1568(12.4) 55(0.4) 1623(12.9) 1602(12.7) 1602(12.7) NET -606 255 -351 -1122 -1122 Weight (kg) 126.2 126.2 126.2 126.2 126.2 126.2 LDA CVC Quadruple Lumen 10/17/23 Right Internal jugular (Active) Number of days: 3 Pacer Wires (Active) Number of days: 3 Y Chest Tube A and B Mediastinal 28 Fr. Mediastinal 24 Fr. (Active) Number of days: 3 Recent Labs Lab Units 10/20/23 00210/19/23 02110/18/23 0154 SODIUM mmol/L 137 138 136 POTASSIUM PLASMA mmol/L 4.4 4.4 4.0 CHLORIDE mmol/L 96* 97 98 CO2 mmol/L 21* 21* 20* BUN SERUM mg/dL 77* 74* 71* CREATININE mg/dL 11.28* 10.85* 10.47* MAGNESIUM mg/dL 2.4 2.5 2.5 PHOSPHORUS PLASMA mg/dL 8.9* 8.3* 6.5* Recent Labs Lab Units 10/19/23 1444 10/19/23 0709 10/17/23 2255 10/17/23 1327 10/14/23 0104 ALK PHOS Units/L 104 -- -- -- 98 ALT Units/L 9 -- -- -- 21 AST Units/L 39 -- -- -- 28 BILIRUBIN TOTAL mg/dL 0.3 -- -- -- 0.3 LACTATE mmol/L -- 1.4 0.9 1.2 -- AMYLASE Units/L <3* -- -- -- -- LIPASE Units/L 7* -- -- -- -- Recent Labs Lab Units 10/20/232010/19/2321010/18/23 0154 WBC K/cumm 8.8 8.9 8.3 HEMOGLOBIN g/dL 8.3* 8.7* 8.5* HEMATOCRIT % 26.2* 27.4* 26.4* PLATELETS K/cumm 149* 157 164 Recent Labs Lab Units 10/20/23 0322 10/20/23 0021 10/19/23 2147 10/19/23 1444 10/19/23 0414 10/19/23 02110/18/23 1455 10/18/23 0154 APTT sec 114* -- 94* 59* < > -- < > -- INR -- 2.24* -- -- -- 1.12 -- 1.18 < > = values in this interval not displayed. Recent Labs Lab Units 10/19/2321010/18/23203310/18/23 0154 PH ART 7.28* 7.27* 7.35 PCO2 ART mmHg 44 46* 38 PO2 ART mmHg 130* 88 92 HCO3 ART (CALC) mmol/L 21 21 21 BASE EXC ART mmol/L -6 -6 -4 O2 SAT ART (CALC) % 99* 95 97 Recent Labs Lab Units 10/16/23 1527 HEMOGLOBIN A1C % 8.1* Impression and Plan: NSTEMI s/p CABG Aortic valve stenosis s/p mechanical AVR Post CPB LEIA on [employer] 5 with LVEF 40-50%, normal RV. (Told during report) no note in place. Arrived on [employer] 5, NE 0.05 with low filling pressures and AAI 90. Post op bleeding requiring multiple transfusions. Bleeding from CT slowed overnight but oozing at lines and drain sites. - EPW VVI bu - Consider DC'ing CT - ASA daily - DC Heparin drip - Continue Warfarin per pharmacy - INR goal 2-3 - terminal superintendent anticoagulation plan Warfarin and Plavix for NSTEMI - statin daily - Torsemide 100mg daily start today - DC Arterial line Paroxysmal atrial fibrillation Sinus bradycardia History of pAF. On Eliquis at home. Was on Heparin drip pre op. Arrived from OR AAI at 90 with reported bradycardia in PCU while on BB SB 50-60s. [employer] weaned off overnight and EPW to VVI bu. Hemodynamically stable. - Keep EPW VVI bu - Check Scvo2 and lactate - Avoid BB today - Keep K>4.0, Mag>2.0 Acute Respiratory Insufficiency Pleural effusions BEN History of BEN with intermittent compliance with CPAP. Currently on 2L NC. CXR with bibasilar effusions. Slight increase in fluid in right fissure. - CPAP at night - Pulmonary hygiene with IS and C&DB - Wean supplemental O2 for SpO2 > 92% Nausea/vomiting Post op nausea and vomiting. Received Zofran yesterday as well as Haldol. Started on Sclopamine patch overnight. KUB yesterday with no obstruction. May be related to gastroparesis with Type 1 DM - Repeat KUB - Lactate - LFT, Amylase, lipase - Haldol 1 mg x 1 given Acute Postoperative Pain Expected postop pain following cardiac surgery. Very drowsy on exam and denies pain. Issues with nausea and vomiting. - Scheduled acetaminophen 1gm Q6H - DC Oxycodone ESRD on PD Hyperphosphatemia On PD at home. Makes some urine. Continues to undergo PD nightly. Makes urine. - Torsemide 100mg daily - DC nguyen - Continue PD per renal - Home Phoslo, calcitrol - Avoid nephrotoxic medications - Renally dose medications - Maintain MAP > 65 for renal perfusion - AM BMP GERD - home PPI History of DVT In RLE 2016. Had been on Eliquis at home. - Increase Heparin to full nomogram, warfarin today Type 1 DM Admitted to OSH for DKA and was transitioned off Insulin drip prior to transfer to [facility]. Insulin pump not working when he presented to ER. Very labile blood sugars on basal/SSI regimen with glucose up to 300s. Likely difficulty with management due to PD. Remains on Insulin infusion, glucose labile while on PD. - Dr. Bethea for endocrine management Acute Blood Loss Anemia Chronic anemia Expected following cardiac surgery. 2 PRBC, 2 FFP, 10 Cryo, 1 PLT for intraop blood products. Chronic anemia with ESRD. Coagulopathy post op and received Protamine DDAVP, FFP, and PRBC. Minimal CT output. Hgb 8.7, PLT 154. - No current indication for transfusion, consider if patient becomes hemodynamically unstable with increased pressor requirements or Hgb < 7.0. - CBC daily Additional ICU Care: DVT prophylaxis: Systemic Heparin PUD prophylaxis: Continue home PPI. Nutrition: ADAT Bowel regimen: Scheduled docusate and senna. Polyethylene glycol and bisacodyl suppository PRN. Physical therapy/Activity: PT/OT Byron Olvera NP Critical Care Performed by: Byron Olvera NP Authorized by: Byron Olvera NP CRITICAL CARE: Team: [facility] CT Shift: AM Level of Billing: Subsequent Hospital Visit Level 3 My time spent with this patient was 60 minutes: Critical Provider Statement: I have seen and examined the patient on this day of service. I have reviewed and confirmed the history, physical exam, laboratory, and radiographic data as documented in the ICU note. I have reviewed and discussed my treatment plan with the patient's team and other medical/as400 consultant staff. This time was in addition to and separate from care provided by other practitioners on this day of service. Cosigned by Kirsten Burns MD at 10/29/2023 10:56 PM CDT DING ADMIN * Nusrat Us RPh - 10/20/2023 12:06 PM CST Warfarin monitoring Lab Results Component Value Date/Time INR 2.24 (H) 10/20/2023 12:21 AM HGB 8.3 (L) 10/20/2023 12:21 AM HGB 8.1 (L) 10/17/2023 12:26 PM HCT 26.2 (L) 10/20/2023 12:21 AM HCT 30.0 (L) 06/05/2022 03:22 PM LABPLAT 149 (L) 10/20/2023 12:21 AM Warfarin dose today: 0.5 mg Patient currently at acute postop goal of INR 2-2.5 at 2.25. Small dose today because anticipate potential increase in INR tomorrow since we haven't seen full effects from both doses. However, patient has started eating significantly more so INR may not increase as much as it did today. DING ADMIN * Bartolo Solorio MD - 10/20/2023 9:18 AM CST Cardiology Daily Progress - [facility] SUBJECTIVE: Mr. Garvin is resting comfortably in bed. Alert and breathing comfortably on 2 L/min per NC of oxygen. To be transferred out of ICU today. Tele shows he went back into atrial fibrillation last night around 1900. Review of Systems: Review of systems per HPI and otherwise all other systems are negative OBJECTIVE: Scheduled Medications Medication Dose Route Frequency acetaminophen (TYLENOL) tablet 1,000 mg 1,000 mg oral Q6H [facility] aspirin chewable tablet 81 mg 81 mg oral Daily atorvastatin (LIPITOR) tablet 80 mg 80 mg oral Daily calcitRIOL (ROCALTROL) capsule 0.25 mcg 0.25 mcg oral Daily calcium acetate(phosphat bind) (PHOSLO) capsule 1,334 mg 1,334 mg oral TID with meals docusate sodium (COLACE) capsule 100 mg 100 mg oral BID epoetin genia-epbx (RETACRIT) (10,000 unit/mL) injection 10,000 Units 10,000 Units subcutaneous Weekly - 2100 ezetimibe (ZETIA) tablet 10 mg 10 mg oral Daily gentamicin (GARAMYCIN) 0.1 % cream topical Daily insulin lispro (HumaLOG, ADMELOG) 100 unit/mL injection 0-10 Units 0-10 Units subcutaneous TID withmeals insulin lispro (HumaLOG, ADMELOG) 100 unit/mL injection 3 Units 3 Units subcutaneous TID with meals insulin NPH (HumuLIN N, NovoLIN N) 100 unit/mL injection 15 Units 15 Units subcutaneous Daily insulin NPH (HumuLIN N, NovoLIN N) 100 unit/mL injection 30 Units 30 Units subcutaneous Nightly pantoprazole DR (PROTONIX) extended release tablet 40 mg 40 mg oral Daily scopolamine patch 72 hour 1 patch 1 patch transdermal Once senna (SENOKOT) tablet 1 tablet 1 tablet oral BID sodium chloride 0.9% flush 0.5-20 mL 0.5-20 mL intra-catheter Q8H ASHLEY sodium chloride 0.9% flush 0.5-20 mL 0.5-20 mL intra-catheter Q8H ASHLEY torsemide (DEMADEX) tablet 100 mg 100 mg oral Daily Continuous Medications Medication Dose Last Rate dextrose 5% and Lactated Ringer's infusion 10 mL/hr 10 mL/hr (10/19/23 1453) Dianeal low calcium-dextrose 2.5 % 6,000 mL dialysis solution insulin regular in 0.9% sodium chloride (MYXREDLIN) 100 unit/100 mL (1 unit/mL) infusion (premix) 0-30 Units/hr 2 Units/hr (10/20/23 0200) sodium chloride 0.9% infusion 10 mL/hr sodium chloride 0.9% infusion 10 mL/hr 10 mL/hr (10/17/23 1437) PRN Medications Medication Dose Route Frequency Last Admin bisacodyL (DULCOLAX) suppository 10 mg 10 mg rectal Daily PRN calcium chloride 1 g/110 mL in sodium chloride 0.9% (premix) solution 1,000 mg 1,000 mg [id number] PRN 1,000 mg at 10/18/23 0032 Carrier Fluids for Secondary Infusion - 0.9% Sodium Chloride 30 mL intravenous PRN dextrose (D10W) 10% bolus 125 mL 125 mL intravenous Q30 Min PRN 1,000 mL at 10/19/23 1058 dextrose (GLUTOSE) 40 % gel 15 g 15 g oral Q15 Min PRN Or dextrose (D10W) 10% bolus 250 mL 250 mL intravenous Q15 Min PRN dextrose (GLUTOSE) 40 % gel 15 g 15 g oral Q15 Min PRN Or dextrose (D10W) 10% bolus 250 mL 250 mL intravenous Q15 Min PRN glucagon injection 1 mg 1 mg intramuscular Q30 Min PRN glucagon injection 1 mg 1 mg intramuscular Q30 Min PRN insulin lispro (HumaLOG, ADMELOG) 100 unit/mL injection 1-14 Units 1-14 Units subcutaneous PRN insulin regular bolus from bag 2-14 Units 2-14 Units intravenous Q1H PRN 2 Units at 10/19/23 0505 magnesium sulfate 2 g/50 mL in water (premix) 2 g 2 g intravenous Q2H PRN ondansetron (ZOFRAN) injection 4 mg 4 mg intravenous Q6H PRN 4 mg at 10/19/23 1721 polyethylene glycol (MIRALAX) packet 17 g 17 g oral Daily PRN potassium chloride ER (KLOR-CON) extended release tablet 20 mEq 20 mEq oral Q4H PRN Or potassium chloride (KLOR-CON) packet 20 mEq 20 mEq feeding tube Q4H PRN potassium chloride ER (KLOR-CON) extended release tablet 40 mEq 40 mEq oral Q4H PRN Or potassium chloride (KLOR-CON) packet 40 mEq 40 mEq feeding tube Q4H PRN potassium chloride 20 mEq/50 mL in sterile water (premix) 20 mEq 20 mEq intravenous Q1H PRN ramelteon (ROZEREM) tablet 8 mg 8 mg oral Nightly PRN sodium chloride 0.9% flush 0.5-20 mL 0.5-20 mL intra-catheter PRN sodium chloride 0.9% flush 0.5-20 mL 0.5-20 mL intra-catheter PRN sodium chloride 0.9% infusion 10 mL/hr intravenous Continuous PRN Recent Labs Lab Units 10/20/23 0915 10/20/23 0723 10/20/23 0612 10/20/23 0057 10/20/23 0021 10/19/23 1625 10/19/23 1444 10/19/23 0256 10/19/23 0211 10/18/23 0157 10/18/23 0154 10/14/23 0205 10/14/23 0104 SODIUM mmol/L -- -- -- -- 137 -- -- -- 138 -- 136 < > 130* POTASSIUM PLASMA mmol/L -- -- -- -- 4.4 -- -- -- 4.4 -- 4.0 < > 4.3 CHLORIDE mmol/L -- -- -- -- 96* -- -- -- 97 -- 98 < > 90* CO2 mmol/L -- -- -- -- 21* -- -- -- 21* -- 20* < > 21* ANIONGAP mmol/L -- -- -- -- 20* -- -- -- 20* -- 18* < > 19* GLUCOSE mg/dL -- -- -- -- 105 -- -- -- 188 -- 174 < > 453* POC GLUCOSE MONITOR mg/dL 102 109 119 < > -- < > -- < > -- < > -- < >-- BUN SERUM mg/dL -- -- -- -- 77* -- -- -- 74* -- 71* < > 66* CREATININE mg/dL -- -- -- -- 11.28* -- -- -- 10.85* -- 10.47* < > 10.57* CALCIUM mg/dL -- -- -- -- 8.9 -- -- -- 9.0 -- 9.2 < > 9.2 ALBUMIN g/dL -- -- -- -- 2.8* -- 3.0* -- 3.1* -- 2.6* < > 3.4* ALK PHOS Units/L -- -- -- -- -- -- 104 -- -- -- -- -- 98 ALT Units/L -- -- -- -- -- -- 9 -- -- -- -- -- 21 AST Units/L -- -- -- -- -- -- 39 -- -- -- -- -- 28 BILIRUBIN TOTAL mg/dL -- -- -- -- -- -- 0.3 -- -- -- -- -- 0.3 MAGNESIUM mg/dL -- -- -- -- 2.4 -- -- -- 2.5 -- 2.5 < > -- < > = values in this interval not displayed. Recent Labs Lab Units 10/20/23 0021 10/19/23 0211 10/18/23 0154 WBC K/cumm 8.8 8.9 8.3 HEMOGLOBIN g/dL 8.3* 8.7* 8.5* HEMATOCRIT % 26.2* 27.4* 26.4* PLATELETS K/cumm 149* 157 164 Recent Labs Lab Units 10/20/23 0322 10/20/23 0021 10/19/23 2147 10/19/23 1444 10/19/23 0414 10/19/23 0211 10/18/23 1455 10/18/23 0154 PROTIME (PT) sec -- 25.5* -- -- -- 12.8 -- 13.4 INR -- 2.24* -- -- -- 1.12 -- 1.18 APTT sec 114* -- 94* 59* < > -- < > -- < > = values in this interval not displayed. Intake/Output Summary (Last 24 hours) at 10/20/2023 0918 Last data filed at 10/20/2023 0740 Gross per 24 hour Intake 1272 ml Output 1683 ml Net -411 ml Wt Readings from Last 3 Encounters: 10/16/23 126.2 kg (278 lb 3.5 oz) 06/29/22 118.1 kg (260 lb 6.4 oz) 01/21/21 132.9 kg (293 lb) Patient Vitals for the past 24 hrs: BP Temp Temp src Pulse Resp SpO2 10/20/23 0700 125/61 -- -- 58 17 99 % 10/20/23 0600 119/68 -- -- 72 23 97 % 10/20/23 0500 134/63 -- -- 79 19 98 % 10/20/23 0400 139/83 36.5 ??C (97.7 ??F) Temporal 73 16 98 % 10/20/23 0300 130/58 -- -- 82 17 96 % 10/20/23 0200 141/85 -- -- 69 19 97 % 10/20/23 0100 143/60 -- -- 69 13 95 % 10/20/23 0033 -- -- -- 70 13 -- 10/20/23 0000 133/55 36.3 ??C (97.3 ??F) Temporal 67 15 94 % 10/19/23 2300 114/59 -- -- 73 13 93 % 10/19/23 2200 138/56 -- -- 71 14 92 % 10/19/23 2100 120/50 -- -- 70 12 92 % 10/19/231999 (!) 134/42 36.4 ??C (97.5 ??F) Temporal 73 14 94 % 10/19/23 1900 116/45 -- -- 74 19 97 % 10/19/23 1800 132/58 -- -- 70 21 93 % 10/19/23 1700 123/95 -- -- 73 19 93 % 10/19/23 1600 149/50 -- -- 75 12 94 % 10/19/23 1534 -- -- -- -- -- 96 % 10/19/23 1500 144/73 -- -- 75 15 92 % 10/19/23 1400 126/50 -- -- 67 13 91 % 10/19/23 1300 137/51 -- -- 68 16 92 % 10/19/23 1200 132/52 36.3 ??C (97.4 ??F) Temporal 65 14 95 % 10/19/23 1100 -- -- -- 71 24 99 % 10/19/23 1000 142/63 -- -- 63 12 97 % Echo 10/16/23 1. Severe left ventricular systolic dysfunction. There is global hypokinesis. More focal hypokinesis of the apex Ejection Fraction is measured at (Simpsons) 30 %. 2. Normal appearance of the mitral valve leaflets. Mild mitral valve regurgitation. 3. Aortic cusps appear moderately calcified. Moderate to severe aortic stenosis. 4. Normal appearance of the tricuspid leaflets. Mild tricuspid regurgitation. Telemetry: atrial fibrillation rate in 60s Exam: General: In no apparent distress Neuro: Alert and oriented x 3, moves all extremities well HEENT: Normocephalic, atraumatic Neck: There are no carotid bruits. I do not appreciate JVD. Lungs: Symmetric, unlabored, clear to auscultation bilaterally Heart: irregular rhythm, regular rate, no murmurs, rubs, or gallops +sternal dressing Abdomen: Soft, non-tender, non-distended, bowel sounds present Extremities: No LE edema, palpable peripheral pulses BL Neurologic: No focal deficits ASSESSMENT/PLAN: CAD - prior SC with multiple PCI - C showed multivessel disease - LVEF dropped to 20-25% (was 65% in 05/2022) - s/p CABG x3 and AVR on 10/17/2023; BRICE to LAD, SVG to OM, SVG to PDA Aortic Stenosis - replaced with mechanical valve Hypertension - blood pressure controlled Dyslipidemia - continue atorvastatin 80 mg and ezetimibe 10 mg DM1 - management per primary team Paroxysmal Atrial Fibrillation - occurred in 06/2022 during hospitalization - went back into atrial fibrillation around 1900 last night - was on apixaban -> heparin -> wafarin with mechanical valve DVT - h/o RLE in 2017 - was on apixaban -> heparin -> wafarin with mechanical valve Heparin gtt stopped this AM. Receiving warfarin. On 2 L/min per NC. Awake and alert. Being transferred out of ICU today Back in atrial fibrillation (HR in 60s) Salena Rene NP [facility] 10/20/2023 9:18 AM Pt evaluated with SENIOR CAREGIVER. He is doing well clinically with planned transfer from the ICU today. Afib rates are well-controlled (currently in the 60s) with plan detailed above. DING ADMIN DING ADMIN * Chula Valera PA - 10/20/2023 6:43 AM CST Images from the original note were not included. Nephrology Juvenal Garvin Jr. - 1970 Primary : Aditya Correa MD History and interval events: 53-year-old gentleman with history of type 1 diabetes mellitus on insulin pump, CHF, CAD, ESRD on peritoneal dialysis initially presented to [facility] in [facility] on October 09 for symptoms of general malaise for the past 4 days prior to admission. Patient was having symptoms of nausea with dry heaves. He presented hemodynamically stable. His glucose was measured to be 584, beta hydroxybutyrate 2.9 with an anion gap of 19. Patient was transferred to the ICU for insulin dripand DKA management. During this hospitalization his troponin was measured to be elevated prompting a cardiology consultation which lead to a C. Results were notable for severe CAD and he was recommended to seek surgical revascularization evaluation prompting transfer to this facility. He missed his peritoneal dialysis last evening during transfer. He has been on peritoneal dialysis for approximately 2 years and tolerating this well under the care of Dr. Reyes. He does make some urine. S/P 3v CABG and Mech AVR 10/17 Warfarin started for history of RLE DVT. On heparin gtt He was given some fluids for hypoglycemia Had some postop bleeding total UF 1481 Medication: Current medication list reviewed Intake and Output Summary: Intake/Output Summary (Last 24 hours) at 10/20/2023 0643 Last data filed at 10/20/2023 0600 Gross per 24 hour Intake 1272 ml Output 1623 ml Net -351 ml Vital Signs: Vitals: 10/20/23 0600 BP: 119/68 Pulse: 72 Resp: 23 Temp: SpO2: 97% Physical Exam: General Drowsy, on NC H&N No visible JVD Eyes Pupils symmetrical with no scleral icterus Chest CTA Heart S1-S2 regular Abdomen Soft and non tender PD catheter in situ Extremeties +lower extremity edema Skin No rash Neuro Nonfocal Mental status Alert and conversant CBC: Recent Labs Lab Units 10/20/23 0021 10/19/23 0211 10/18/23 0154 WBC K/cumm 8.8 8.9 8.3 HEMOGLOBIN g/dL 8.3* 8.7* 8.5* HEMATOCRIT % 26.2* 27.4* 26.4* PLATELETS K/cumm 149* 157 164 RFP: Recent Labs Lab Units 10/20/23 0021 10/19/23 1444 10/19/23 0211 10/18/23 0154 10/17/23 1814 10/17/23 1327 SODIUM mmol/L 137 -- 138 136 -- 139 POTASSIUM PLASMA mmol/L 4.4 -- 4.4 4.0 4.2 3.8 CHLORIDE mmol/L 96* -- 97 98 -- 98 CO2 mmol/L 21* -- 21* 20* -- 23 BUN SERUM mg/dL 77* -- 74* 71* -- 75* CREATININE mg/dL 11.28* -- 10.85* 10.47* -- 10.43* CALCIUM mg/dL 8.9 -- 9.0 9.2 -- 8.9 PHOSPHORUS PLASMA mg/dL 8.9* -- 8.3* 6.5* -- 6.1* ALBUMIN g/dL 2.8* 3.0* 3.1* 2.6* -- -- Impression and Recommendations: 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 Oral loop diuretic Bowel regimen Start CORRINE weekly Continue active and nutritional vitamin-D LESLY Ortiz [facility]: MD Chula Domínguez PA Graeme Mindel, MD Justin Krafft, MD STANISLAV Camacho NP Rohan Devanpalli, MD Candace Shirley, ROBERTO [address] - [address] [place], [place] [address] [phone] - Office [phone] - Fax DING ADMIN DING ADMIN * Eliana Márquez, PT - 10/19/2023 2:25 PM CST Physical Therapy Cancellation 10/19/23 1425 PT Last Visit Session Type Other (comment) PT Received On 10/19/23 Subjective Other Subjective Comment Per RN, Pt. is too fatigued to participate in therapy, will attempt evaluation 10/19. PT Missed Visit Reason MD/RN Hold;Asleep DING ADMIN * Chula Valera PA - 10/19/2023 12:42 PM CST Images from the original note were not included. Nephrology Juvenal Garvin . - 1970 Primary : Aditya Correa MD History and interval events: 53-year-old gentleman with history of type 1 diabetes mellitus on insulin pump, CHF, CAD, ESRD on peritoneal dialysis initially presented to [facility] in [facility] on October 09 for symptoms of general malaise for the past 4 days prior to admission. Patient was having symptoms of nausea with dry heaves. He presented hemodynamically stable. His glucose was measured to be 584, beta hydroxybutyrate 2.9 with an anion gap of 19. Patient was transferred to the ICU for insulin dripand DKA management. During this hospitalization his troponin was measured to be elevated prompting a cardiology consultation which lead to a [facility]. Results were notable for severe CAD and he was recommended to seek surgical revascularization evaluation prompting transfer to this facility. He missed his peritoneal dialysis last evening during transfer. He has been on peritoneal dialysis for approximately 2 years and tolerating this well under the care of Dr. Reyes. He does make some urine. Extubated On heparin drip On IV insulin Initial drain 84 ml, total UF 1375 Medication: Current medication list reviewed Intake and Output Summary: Intake/Output Summary (Last 24 hours) at 10/19/2023 1243 Last data filed at 10/19/2023 1130 Gross per 24 hour Intake 600 ml Output 1754 ml Net -1154 ml Vital Signs: Vitals: 10/19/23 0720 BP: Pulse: 63 Resp: 13 Temp: 36.3 ??C (97.4 ??F) SpO2: 98% Physical Exam: General Drowsy, on NC H&N No visible JVD Eyes Pupils symmetrical with no scleral icterus Chest CTA Heart S1-S2 regular Abdomen Soft and non tender PD catheter in situ Extremeties +lower extremity edema Skin No rash Neuro Nonfocal Mental status Alert and conversant CBC: Recent Labs Lab Units 10/19/23 0211 10/18/23 0154 10/17/23 2255 WBC K/cumm 8.9 8.3 7.7 HEMOGLOBIN g/dL 8.7* 8.5* 8.8* HEMATOCRIT % 27.4* 26.4* 27.2* PLATELETS K/cumm 157 164 165 RFP: Recent Labs Lab Units 10/19/23 0211 10/18/23 0154 10/17/23 1814 10/17/23 1327 10/15/23 0106 10/14/23 0553 10/14/23 0104 SODIUM mmol/L 138 136 -- 139 130* < > 130* POTASSIUM PLASMA mmol/L 4.4 4.0 4.2 3.8 4.3 < > 4.3 CHLORIDE mmol/L 97 98 -- 98 89* < > 90* CO2 mmol/L 21* 20* -- 23 22 < > 21* BUN SERUM mg/dL 74* 71* -- 75* 78* < > 66* CREATININE mg/dL 10.85* 10.47* -- 10.43* 10.57* < > 10.57* CALCIUM mg/dL 9.0 9.2 -- 8.9 8.2* < > 9.2 PHOSPHORUS PLASMA mg/dL 8.3* 6.5* -- 6.1* 5.7* -- -- ALBUMIN g/dL 3.1* 2.6* -- -- 3.3* -- 3.4* < > = values in this interval not displayed. 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 Would not advise changing to HD for hyperglycemia Oral loop diuretic Will hold on heparin with PD for fibrin given heparin gtt currently Continue active and nutritional vitamin-D Resume Phoslo with meals LESLY Ortiz [facility]: MD Chula Domínguez PA Graeme Mindel, MD Justin Krafft, PA Derek Larson, MD FASN Rose Mattli, NP Rohan Devanpalli, MD Candace Shirley, NP [address] [place], [place] [address] [phone] - Office [phone] - Fax DING ADMIN DING ADMIN * Reyes Odom - 10/19/2023 11:49 AM CST Occupational Therapy Evaluation 10/19/23 1035 General Chart Reviewed Yes Session Type Evaluation OT Received On 10/19/23 Safe Environment Arm band checked;Patient found in supine Subjective Agreeable to Therapy Subjective Comment I'm so cold and tired. Additional Pertinent History 53 y/o M presents for surgical intervention on 10/14/23 from [facility]. Pt is s/p CABG x 3 (SVG-PDA, SVG-OM, BRICE-LAD) and mechanical AVR on 10/[address] Valero. Pt has history of ESRD on PD, CAD s/p PCI, SC, and DVT on chronic anticoagulation, Type 1 DM, HTN. Occupational Therapy-Patient Goal I want to go back home. Precautions Precautions Cardiac sternal;Drains;Fall risk Precaution Handout Issued Yes Precaution Comments Pt was educated on sternal precautions, but due to drowsiness would benefit from further education. Home Living Type of Home House Home Layout One level Home Access Stairs to enter without rails Entrance Stairs-Number of Steps 1 Bathroom Shower/Tub Tub/shower unit Bathroom Toilet Standard Home Mobility Equipment-Available Single point cane Home Mobility Equipment-Currently Using Single point cane (Uses occassionally) Additional Comments Pt independent with transfers and mobility at baseline. 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 Pt has R arterial line splint in place which inhibits function of hand.) Grooming: Assistance with Teeth care LE Dressing LE Dressing: Where assessed Supine, bed LE Dressing: Level of assistance Maximum Assist LE Dressing: Assistance with Don/doff R sock;Don/doff L sock Pain Assessment Pain Assessment 0-10 Pain Score 3 Pain Location Sternum Clinical Progression (Post pain 3/10) Pain Interventions Medication (See MAR) Activity Tolerance Endurance Tolerates 30 min activity with multiple rests Activity Tolerance Comments Session completed on 2L supplemental O2 via NC. Pre- activity vitals:HR 63, O2 95%, BP 131/58. Post activity: HR 68, O2 97%, BP 132/86. Pt notes some dizziness once sittingEOB, resolves after a few minutes. Cognition Cognition Comments Pt drowsy and closes eyes multiple times throughout session. Pt exhibits some forgetfulness. Orientation Oriented X4 (person, place, time, situation) Bed Mobility 1 Level of Assistance 1 Moderate Assist Bed Mobility Comments 1 Supine to EOB. Pt needs assistance for trunk support and LE management. Pt needed verbal cueing for safety, adhering to sternal precautions, and sequencing. Transfer 1 Transfer Level of Assistance 1 Moderate Assist Trials/Comments 1 Sit <> stand with no device. Pt needed assist for force production as well as cueing for safety, sequencing, and adhering to sternal precautions. Pt had posterior loss of balance prior to sitting. RUE Assessment RUE Assessment X RUE Comments Functionally weak LUE Assessment LUE Assessment X LUE Comments Functionally weak Other Comments Comments Pt has bouts of nausea and dizziness. RN in room checking blood sugar which was low. Once in recliner, pt more alert and symptoms decrease. Safe Environment End of Therapy Session Safe Environment End of Therapy Session Patient left in recliner;Call light within reach;Overbed table within reach Assessment Prognosis Good Problem List Decreased upper extremity strength;Decreased endurance;Visual deficit;Decreased functional mobility;Decreased ADL independence;Decreased IADL independence Plan Plan Continue with current plan;If this is the last note, consider this the discharge summary Recommendation/Plan OT Recommendation (S) Post-Acute Therapy OT Frequency during current admission 3-5x/wk Treatment/Interventions during current admission ADL/IADL retraining;Balance Training;Bed mobility;Endurance training;Functional activity;Functional mobility training;Functional transfer training Progress during current admission Progressing toward goals OT Evaluation Complete Yes Education: Patient has been educated on the role of OT, safety, precautions, ADL training, mobilitytraining, body mechanics, and energy conservation. Education completed via verbal instruction and return demonstration. Patient verbalized understanding and demonstrated understanding. Multi-Disciplinary Problems (from Occupational Therapy) Active Problems Problem: OT Misc Start Date: 10/19/23 Goal Start Date Expected End Date End Date OT LTG 1 Pt will complete UE/LE dressing modified independent. 10/19/23 10/26/23 -- Goal Start Date Expected End Date End Date OT LTG 2 Pt will complete bathing with transfer modified independent. 10/19/23 10/26/23 -- Goal Start Date Expected End Date End Date OT LTG 3 Pt will complete toileting with transfer modified independent. 10/19/23 10/26/23 -- Goal Start Date Expected End Date End Date OT LTG 4 Pt will complete grooming at sink modified independent. 10/19/23 10/26/23 -- Goal Start Date Expected End Date End Date OT LTG 5 Pt will adhere to sternal precautions while completing transfers, mobility, and ADL tasks.10/19/23 10/26/23 -- Cosigned by Suzie Aiken OT at 10/19/2023 11:50 AM BUILDING ADMIN DING ADMIN DING ADMIN * Felipe Robledo DO - 10/19/2023 8:09 AM CST Cardiology Progress Note - [facility] SUBJECTIVE: Pain contolled Stable hemodynamics Current Medications: Scheduled Meds:acetaminophen, 1,000 mg, oral, Q6H ASHLEY aspirin, 81 mg, oral, Daily atorvastatin, 80 mg, oral, Daily calcitRIOL, 0.25 mcg, oral, Daily calcium acetate(phosphat bind), 667 mg, oral, TID with meals calcium acetate(phosphat bind), 667 mg, oral, Nightly ceFAZolin, 1,000 mg, intravenous, Q24H ASHLEY docusate sodium, 100 mg, oral, BID ezetimibe, 10 mg, oral, Daily gentamicin, , topical, Daily pantoprazole DR, 40 mg, oral, Daily scopolamine, 1 patch, transdermal, Once senna, 1 tablet, oral, BID sodium chloride 0.9%, 0.5-20 mL, intra-catheter, Q8H ASHLEY sodium chloride 0.9%, 0.5-20 mL, intra-catheter, Q8H ASHLEY Continuous Infusions:Dianeal low calcium-dextrose 2.5 % 6,000 mL dialysis solution, Dianeal low calcium-dextrose 2.5 % 6,000 mL dialysis solution, heparin, 0-33 Units/kg/hr, Last Rate: 8.3 Units/kg/hr (10/19/23 06) insulin regular, 0-30 Units/hr, Last Rate: 4.5 Units/hr (10/19/23 0726) sodium chloride 0.9%, 10 mL/hr sodium chloride 0.9%, 10 mL/hr, Last Rate: 10 mL/hr (10/17/23 1437) sodium chloride 0.9%, 3-12 mL/hr PRN Meds:. bisacodyL calcium chloride sodium chloride 0.9% dextrose dextrose OR dextrose glucagon insulin lispro insulin regular magnesium sulfate ondansetron polyethylene glycol potassium chloride ER OR potassium chloride potassium chloride ER OR potassium chloride potassium chloride ramelteon sodium chloride 0.9% sodium chloride 0.9% sodium chloride 0.9% Physical Examination: Vitals: 10/19/23 0500 10/19/23 0530 10/19/23 0600 10/19/23 0720 BP: 142/56 133/56 128/54 Pulse: 67 65 62 63 Resp: 20 14 15 13 Temp: 36.3 ??C (97.4 ??F) TempSrc: SpO2: 97% 98% 97% 98% Weight: Height: General: No acute distress Neuro: Alert and oriented x 3, moves all extremities well HEENT: normocephalic, atraumatic, thyroid not enlarged. I do not appreciate JVD. Neck: There are nocarotid bruits. Chest: symmetric, stable. Lungs: symmetric, unlabored, clear to auscultation bilaterally Heart: regular rate & rhythm, no murmurs crisp s2 Abdomen: soft, non-tender, non-distended, bowel sounds present Extremities: no LE edema, palpable peripheral pulses BL Review of LABS: Recent Labs Lab Units 10/19/23 0211 WBC K/cumm 8.9 HEMOGLOBIN g/dL 8.7* HEMATOCRIT % 27.4* PLATELETS K/cumm 157 Recent Labs Lab Units 10/19/23 0719 10/19/23 0256 10/19/23 0211 SODIUM mmol/L -- -- 138 POTASSIUM PLASMA mmol/L -- -- 4.4 CHLORIDE mmol/L -- -- 97 CO2 mmol/L -- -- 21* ANIONGAP mmol/L -- -- 20* BUN SERUM mg/dL -- -- 74* CREATININE mg/dL -- -- 10.85* GLUCOSE mg/dL -- -- 188 POC GLUCOSE MONITOR mg/dL 150* < > -- CALCIUM mg/dL -- -- 9.0 < > = values in this interval not displayed. Recent Labs Lab Units 10/16/23 1544 CHOLESTEROL mg/dL 89 TRIGLYCERIDES mg/dL 106 HDL mg/dL 34* Lab Results Component Value Date HGBA1C 8.1 (H) 10/16/2023 Lab Results Component Value Date INR 1.12 10/19/2023 INR 1.18 10/18/2023 INR 1.22 (H) 10/17/2023 Lab Results Component Value Date TSH 0.80 03/21/2017 Review of Cardiovascular Data: Echo 10/16/23 1. Severe left ventricular systolic dysfunction. There is global hypokinesis. More focal hypokinesis of the apex Ejection Fraction is measured at (Simpsons) 30 %. 2. Normal appearance of the mitral valve leaflets. Mild mitral valve regurgitation. 3. Aortic cusps appear moderately calcified. Moderate to severe aortic stenosis. 4. Normal appearance of the tricuspid leaflets. Mild tricuspid regurgitation. ASSESSMENT/PLAN: 1. CAD: prior mi and multiple pci. The patient underwent cardiac catheterization that showed multivessel disease. His echo also showed that LVEF has dropped to 20-25% (65% in 05/2022). S/P cardiac surgery 10/17 with AVR and CABG x 3 . BRICE to LAD, SVG to OM, SVG to PDA 2. : replaced w mechanical valve. 3. Hypertension: Blood pressure is controlled. 4. Dyslipidemia: Continue on high-intensity statin. 5. Diabetes: Type 1 diabetic on insulin. Management per primary team and endocrine team. 6. ESRD: On peritoneal dialysis with management per Nephrology. 7. Paroxysmal Atrial Fibrillation: Occurred in 06/2022 during a hospital admission. He was on Apixaban which was stopped and is presently on Heparin gtt with bridge to warfarin (to start per cts) given mechanical avr. 8. DVT: Hx of RLE 2016. He was on Apixaban which was stopped and is presently on Heparin/warfarin bridge. Extubated with stable hemodynamics Heparin-->warfarin when ok with cts Up to chair today progressing Felipe Robledo DO, [facility] Heart and Vascular 10/19/2023 8:09 AM DING ADMIN * Dawna Castellanos NP - 10/19/2023 6:57 AM CSTAssociated Order(s): Critical Care Post-Procedure Diagnose(s): CAD in [place] artery Images from the original note were not included. [facility] CVR Daily Progress Note- Patient: Juvenal Garvin Jr. : 1970 Age: 53 y.o. male Admitting Physician: Jaqueline Valero MD Foundry Patternmaker: Kirsten Burns MD Shift: [facility] CVR AM Interval History: CHEMICAL ENGINEERING INTERN wean q6h for Scv02 >65-> off d/t HTN Changed to VVI 50, HR 60 Nasal cpap Dc dilaudid, dec oxy to 2.5 Admitted to the hospital on 10/13/2023 11:18 PM for CAD in [place] artery [I25.10] Hospital Course: (10/17/23) s/p CABG x 3 (SVG-PDA, SVG-OM, BRICE-LAD) and mechanical AVR (25 [place]) by Dr. Valero Temp: [36.3 ??C (97.4 ??F)-37 ??C (98.6 ??F)] 36.3 ??C (97.4 ??F) Pulse: [60-87] 68 BP: (116-151)/(50-69) 137/51 Resp: [8-27] 16 SpO2: [89 %-100 %] 92 % Arterial Line BP: (109-138)/(34-50) 130/42 FiO2 (%): [30 %] 30 % PAP: 39/17 (10/18 1422) CVP: 11 mmHg ( 0900) PCWP: -- CO: -- CI: -- SVO2: -- Pacemaker Overdrive Pacing: -- Cardiac Rhythm: Normal sinus rhythm ( 0720) Pacer Mode: -- NPPV Mode: CPAP (10/19/23 0304) PEEP/CPAP/EPAP Set (cmH2O): 14 cm H20 Minute Ventilation (L/min): 7.1 L/min FiO2 (%): 30 % O2 Del Method: Nasal cannula FiO2 (%): 30 % O2 Flow Rate (L/min): 2 L/min Scheduled Meds: acetaminophen, 1,000 mg, Q6H ASHLEY OR [DISCONTINUED] acetaminophen, 1,000 mg, Q6H ASHLEY OR [DISCONTINUED] acetaminophen, 650 mg, Q6H ASHLEY aspirin, 81 mg, Daily OR [DISCONTINUED] aspirin, 325 mg, Daily OR [DISCONTINUED] aspirin, 300 mg, Daily atorvastatin, 80 mg, Daily calcitRIOL, 0.25 mcg, Daily calcium acetate(phosphat bind), 667 mg, TID with meals calcium acetate(phosphat bind), 667 mg, Nightly docusate sodium, 100 mg, BID OR [DISCONTINUED] docusate, 100 mg, BID ezetimibe, 10 mg, Daily gentamicin, , Daily Lactated Ringer's, 500 mL, Once pantoprazole DR, 40 mg, Daily scopolamine, 1 patch, Once senna, 1 tablet, BID OR [DISCONTINUED] senna, 8.8 mg, BID sodium chloride 0.9%, 0.5-20 mL, Q8H ASHLEY sodium chloride 0.9%, 0.5-20 mL, Q8H ASHLEY torsemide, 100 mg, Daily warfarin, 3 mg, Once - 1800 Physical Exam: Neuro: alert but drowsy, oriented x 2, able to follow simple commands with encouragement, PERRL 2mm Cardiovascular: S1 S2, RRR, click heard epicardial wires VVI 45, periphery warm with palpable pulses, diffuse generalized non pitting edema Pulmonary: NC Breath sounds clear but diminished to auscultation bilaterally, normal respiratory rate and effort GI: Abdomen soft, distended, bowel sounds hypoactive. : Nguyen in place draining clear gamal urine Skin: Warm, dry, Sternal incision with OR dressing clean, dry, intact. SVG site with dermabond PENNIE. Drains: Chest tubes to -20 suction with serosanguinous drainage, no air leak. Infusions: dextrose 5% and Lactated Ringer's, 20 mL/hr, Last Rate: 20 mL/hr (10/19/23 1117) Dianeal low calcium-dextrose 2.5 % 6,000 mL dialysis solution, Dianeal low calcium-dextrose 2.5 % 6,000 mL dialysis solution, heparin, 0-33 Units/kg/hr, Last Rate: 10.3 Units/kg/hr (10/19/23 1011) insulin regular, 0-30 Units/hr, Last Rate: 2 Units/hr (10/19/23 0907) sodium chloride 0.9%, 10 mL/hr sodium chloride 0.9%, 10 mL/hr, Last Rate: 10 mL/hr (10/17/23 1437) sodium chloride 0.9%, 3-12 mL/hr PRN Meds: bisacodyL, 10 mg calcium chloride, 1,000 mg, 1,000 mg at 10/18/23 0032 sodium chloride 0.9%, 30 mL dextrose, 125 mL, Last Rate: 500 mL/hr at 10/19/23 1058, 1,000 mL at 10/19/23 1058 dextrose, 15 g OR dextrose, 250 mL glucagon, 1 mg insulin lispro, 1-14 Units insulin regular, 2-14 Units, 2 Units at 10/19/23 0505 magnesium sulfate, 2 g ondansetron, 4 mg, 4 mg at 10/19/23 1048 polyethylene glycol, 17 g potassium chloride ER, 20 mEq OR potassium chloride, 20 mEq potassium chloride ER, 40 mEq OR potassium chloride, 40 mEq potassium chloride, 20 mEq ramelteon, 8 mg sodium chloride 0.9%, 0.5-20 mL sodium chloride 0.9%, 0.5-20 mL sodium chloride 0.9%, 10 mL/hr Date 10/18/23699 - 10/19/2365810/19/23699 - 10/20/23 0659 Shift 6218-1795 4545-2789 24 Hour Total 6377-9453 4830-6340 24 Hour Total INTAKE P.O. 100 100 I.V.(mL/kg) 500(4) 500(4) Shift Total(mL/kg) 600(4.8) 600(4.8) OUTPUT Urine(mL/kg/hr) 155(0.1) 135(0.1) 290(0.1) 20 20 Drains 0 0 0 Other 1279 1279 1459 1459 Chest Tube 20 115 135 Shift Total(mL/kg) 1454(11.5) 250(2) 1704(13.5) 1479(11.7) 1479(11.7) NET -1454 350 1108 -1479 147 Weight (kg) 126.2 126.2 126.2 126.2 126.2 126.2 LDA CVC Quadruple Lumen 10/17/23 Right Internal jugular (Active) Number of days: 2 Arterial Line 10/17/23 Right Radial (Active) Number of days: 2 Pacer Wires (Active) Number of days: 2 Urethral Catheter Non-latex;Temperature probe (Active) Number of days: 2 Chest Tube Left Pleural (Active) Number of days: 2 Closed/Suction/Open Drain Right;Proximal Thigh Bulb 19 Fr. (Active) Number of days: 2 Y Chest Tube A and B Mediastinal 28 Fr. Mediastinal 24 Fr. (Active) Number of days: 2 Recent Labs Lab Units 10/19/23 02110/18/23 0154 10/17/23 1814 10/17/23 1327 SODIUM mmol/L 138 136 -- 139 POTASSIUM PLASMA mmol/L 4.4 4.0 4.2 3.8 CHLORIDE mmol/L 97 98 -- 98 CO2 mmol/L 21* 20* -- 23 BUN SERUM mg/dL 74* 71* -- 75* CREATININE mg/dL 10.85* 10.47* -- 10.43* MAGNESIUM mg/dL 2.5 2.5 -- 2.3 PHOSPHORUS PLASMA mg/dL 8.3* 6.5* -- 6.1* Recent Labs Lab Units 10/19/23 0709 10/17/23 2255 10/17/23 1327 10/14/23 0104 ALK PHOS Units/L -- -- -- 98 ALT Units/L -- -- -- 21 AST Units/L -- -- -- 28 BILIRUBIN TOTAL mg/dL -- -- -- 0.3 LACTATE mmol/L 1.4 0.9 1.2 -- Recent Labs Lab Units 02/29/21010/18/23 01510/17/23 2255 WBC K/cumm 8.9 8.3 7.7 HEMOGLOBIN g/dL 8.7* 8.5* 8.8* HEMATOCRIT % 27.4* 26.4* 27.2* PLATELETS K/cumm 157 164 165 Recent Labs Lab Units 10/19/23 0858 10/19/23 0414 10/19/23 02110/18/23 2121 10/18/23 1455 10/18/23 01510/17/23 1812 APTT sec 46* 50* -- 43* < > -- 32 INR -- -- 1.12 -- -- 1.18 1.22* < > = values in this interval not displayed. Recent Labs Lab Units 10/19/2321010/18/23203310/18/23 015 PH ART 7.28* 7.27* 7.35 PCO2 ART mmHg 44 46* 38 PO2 ART mmHg 130* 88 92 HCO3 ART (CALC) mmol/L 21 21 21 BASE EXC ART mmol/L -6 -6 -4 O2 SAT ART (CALC) % 99* 95 97 Recent Labs Lab Units 10/16/23 1527 HEMOGLOBIN A1C % 8.1* Impression and Plan: Cardiogenic Shock Vasoplegia NSTEMI s/p CABG Aortic valve stenosis s/p mechanical AVR Post CPB LEIA on [employer]INE[employer] 5 with LVEF 40-50%, normal RV. (Told during report) no note in place. Arrived on [employer]INEERING INTERN 5, NE 0.05 with low filling pressures and AAI 90. Post op bleeding requiring multiple transfusions. Bleeding from CT slowed overnight but oozing at lines and drain sites. Overnight [employer]INE[employer] INTERN weaned off due to hypertension. EPW changed to VVI bu - Check Scvo2 and lactate now--->lactate 1.0, scvo2 70 - EPW VVI bu - CT to (-)20cm suction, can DC PCT today - ASA daily - Increase Heparin drip to full nomogram - Continue Warfarin per pharmacy - intermediate anticoagulation plan Warfarin and Plavix for NSTEMI - statin daily - Torsemide 100mg daily start today - DC Arterial line Paroxysmal atrial fibrillation Sinus bradycardia History of pAF. On Eliquis at home. Was on Heparin drip pre op. Arrived from OR AAI at 90 with reported bradycardia in PCU while on BB SB 50-60s. CHEM[employer]INEERING INTERN weaned off overnight and EPW to VVI bu. Hemodynamically stable. - Keep EPW VVI bu - Check Scvo2 and lactate - Avoid BB today - Keep K>4.0, Mag>2.0 Acute Respiratory Insufficiency Pleural effusions BEN History of BEN with intermittent compliance with CPAP. Currently on 2L NC. CXR with bibasilar effusions. Slight increase in fluid in right fissure. - CPAP at night - Pulmonary hygiene with IS and C&DB - Wean supplemental O2 for SpO2 > 92% Nausea/vomiting Post op nausea and vomiting. Received Zofran yesterday as well as Haldol. Started on Sclopamine patch overnight. KUB yesterday with no obstruction. May be related to gastroparesis with Type 1 DM - Repeat KUB - Lactate - LFT, Amylase, lipase - Haldol 1 mg x 1 given Acute Postoperative Pain Expected postop pain following cardiac surgery. Very drowsy on exam and denies pain. Issues with nausea and vomiting. - Scheduled acetaminophen 1gm Q6H - DC Oxycodone ESRD on PD Hyperphosphatemia On PD at home. Makes some urine. Continues to undergo PD nightly. Makes urine. - Torsemide 100mg daily - Continue PD per renal - Home Phoslo, calcitrol - Avoid nephrotoxic medications - Renally dose medications - Maintain MAP > 65 for renal perfusion - AM BMP GERD - home PPI History of DVT In RL2016. Had been on Eliquis at home. - Increase Heparin to full nomogram, warfarin today Type 1 DM Admitted to OSH for DKA and was transitioned off Insulin drip prior to transfer to [facility]. Insulin pump not working when he presented to ER. Very labile blood sugars on basal/SSI regimen with glucose up to 300s. Likely difficulty with management due to PD. Remains on Insulin infusion, glucose labile while on PD. - Continue Insulin infusion per [place] protocol - do not turn off drip - Once at 0.5units will start D5LR - Consult Dr. Bethea for endocrine management Acute Blood Loss Anemia Chronic anemia Expected following cardiac surgery. 2 PRBC, 2 FFP, 10 Cryo, 1 PLT for intraop blood products. Chronic anemia with ESRD. Coagulopathy post op and received Protamine DDAVP, FFP, and PRBC. Minimal CT output. Hgb 8.7, PLT 154. - No current indication for transfusion, consider if patient becomes hemodynamically unstable with increased pressor requirements or Hgb < 7.0. - CBC daily Additional ICU Care: DVT prophylaxis: Systemic Heparin PUD prophylaxis: Continue home PPI. Nutrition: ADAT Bowel regimen: Scheduled docusate and senna. Polyethylene glycol and bisacodyl suppository PRN. Glycemic control: [place] Protocol insulin gtt.. Lab Results Component Value Date HGBA1C 8.1 (H) 10/16/2023 Physical therapy/Activity: PT/OT ordered today to start when the patient can actively participate Updates: Hypoglycemic this afternoon. Dextrose given until glucose 100. He was very symptomatic, diaphoreticand nauseated. D5LR started, Insulin resumed at 0.5 once glucose >100. Dawna Castellanos NP Critical Care Performed by: Dawna Castellanos NP Authorized by: Dawna Castellanos NP CRITICAL CARE: Team: [facility] CT Shift: AM Level of Billing: Critical Care My time spent with this patient was 90 minutes: Critical Provider Statement: I have seen and examined the patient on this day of service. I have reviewed and confirmed the history, physical exam, laboratory and radiologic data as documented in thesigned ICU note. I have reviewed and discussed my treatment plan with the ICU team and other medical/as400 consultant staff, making frequent assessments and decisions regarding this patient's complex medical care. Critical Care time was exclusive of time spent performing separately billed procedures, treating other patients, and teaching. This time was in addition to and separate from critical care provided by other practitioners in my group on this day of service. Critical Care was necessary to treat or prevent imminent or life-threatening deterioration of the following conditions: I spent time documenting in the medical record, I spent time discussing the management of this critically ill patient with consultants and the medical staff and I spent time reviewing and interpreting data from bedside monitors, laboratory results, and imaging Cosigned by Kirsten Burns MD at 10/29/2023 10:55 PM CDT DING ADMIN * Chula Valera PA - 10/18/2023 2:46 PM CST Images from the original note were not included. Nephrology Juvenal Garvin . - 1970 Primary : Aditya Correa MD History and interval events: 53-year-old gentleman with history of type 1 diabetes mellitus on insulin pump, CHF, CAD, ESRD on peritoneal dialysis initially presented to [facility] in [facility] on October 09 for symptoms of general malaise for the past 4 days prior to admission. Patient was having symptoms of nausea with dry heaves. He presented hemodynamically stable. His glucose was measured to be 584, beta hydroxybutyrate 2.9 with an anion gap of 19. Patient was transferred to the ICU for insulin dripand DKA management. During this hospitalization his troponin was measured to be elevated prompting a cardiology consultation which lead to a [facility]. Results were notable for severe CAD and he was recommended to seek surgical revascularization evaluation prompting transfer to this facility. He missed his peritoneal dialysis last evening during transfer. He has been on peritoneal dialysis for approximately 2 years and tolerating this well under the care of Dr. Reyes. He does make some urine. Extubated On heparin drip On IV insulin Initial drain 93 ml, total UF 1186 Medication: Current medication list reviewed Intake and Output Summary: Intake/Output Summary (Last 24 hours) at 10/18/2023 1446 Last data filed at 10/18/2023 1400 Gross per 24 hour Intake 3203 ml Output 3014 ml Net 189 ml Vital Signs: Vitals: 10/18/23 1422 BP: Pulse: 80 Resp: 16 Temp: SpO2: 96% Physical Exam: General Drowsy, on NC H&N No visible JVD Eyes Pupils symmetrical with no scleral icterus Chest CTA Heart S1-S2 regular Abdomen Soft and non tender PD catheter in situ Extremeties No lower extremity edema Skin No rash Neuro Nonfocal Mental status Alert and conversant CBC: Recent Labs Lab Units 10/18/23 0154 10/17/23 2255 10/17/23 1812 WBC K/cumm 8.3 7.7 7.2 HEMOGLOBIN g/dL 8.5* 8.8* 8.0* HEMATOCRIT % 26.4* 27.2* 24.7* PLATELETS K/cumm 164 165 161 RFP: Recent Labs Lab Units 10/18/23 0154 10/17/23 1814 10/17/23 1327 10/15/23 0106 10/14/23 0553 10/14/23 0104 SODIUM mmol/L 136 -- 139 130* 131* 130* POTASSIUM PLASMA mmol/L 4.0 4.2 3.8 4.3 4.3 4.3 CHLORIDE mmol/L 98 -- 98 89* 92* 90* CO2 mmol/L 20* -- 23 22 23 21* BUN SERUM mg/dL 71* -- 75* 78* 75* 66* CREATININE mg/dL 10.47* -- 10.43* 10.57* 10.22* 10.57* CALCIUM mg/dL 9.2 -- 8.9 8.2* 9.0 9.2 PHOSPHORUS PLASMA mg/dL 6.5* -- 6.1* 5.7* -- -- ALBUMIN g/dL 2.6* -- -- 3.3* -- 3.4* Impression and Recommendations: 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 Would not advise changing to HD for hyperglycemia Oral loop diuretic Continue active and nutritional vitamin-D Resume Phoslo with meals LESLY [facility]: MD Chula Domínguez PA Graeme Mindel, MD Justin Krafft, PA Derek Larson, MD FASN Rose Mattli, NP Rohan Devanpalli, MD Candace Shirley, NP [address] - [address] [place], [place] [address] [phone] Office [phone] - Fax DING ADMIN DING ADMIN * Nusrat Us, [facility] - 10/18/2023 10:05 AM CST Pharmacy Note - Warfarin Management Juvenal Garvin Jr. is a 53 y.o. male who has been consulted for warfarin dosing and monitoring. Indication: mechanical aortic valve Goal: 2 - 2.5 (acute goal) Significant Drug Interactions Perioperative antibiotics with likely little effects on warfarin at this time. Current Hematologic Labs Recent Labs Lab Units 10/18/23 0154 10/17/23 1812 10/17/23 1632 INR 1.18 1.22* 1.23* Recent Labs Lab Units 10/18/23 0154 10/17/23 2255 10/17/23 1812 WBC K/cumm 8.3 7.7 7.2 HEMOGLOBIN g/dL 8.5* 8.8* 8.0* HEMATOCRIT % 26.4* 27.2* 24.7* PLATELETS K/cumm 164 165 161 Assessment/Plan Home Warfarin regimen: not on warfarin at home Warfarin 3 mg ordered for tonight. Daily INR ordered. Patient on postop day 1 with some bleeding post procedure. Patient also has not eaten at this time and has a lower initial INR goal postop (2-2.5). Initiating warfarin at a lower dose initially to see how he responds with anticipation of a higher maintenance dose needed eventually. Will continue to follow patient's clinical progress daily. Pharmacy Warfarin Management Medication Therapy Services Protocol: An INR should be monitored prior to pharmacy verification of a warfarin order. The pharmacist may order an INR for any patient receiving warfarin, regardless of whether or not pharmacy has been consulted for warfarin dosing. For patients with an elevated INR without a pharmacy warfarin dosing consult, the prescriber should be contacted prior to warfarin order verification. Indications Usual indications for a target INR of 2-3 Atrial fibrillation Acute Coronary Syndrome Pulmonary embolism Cardiomyopathy Deep vein thrombosis Bioprosthetic heart valve(s) Usual indications for a target INR of 2.5-3.5 Mechanical MVR Mechanical AVR with risk factor(s) (e.g. Atrial fibrillation, VTE, CHF) Recurrent VTE, CVA *Patients may require concurrent therapeutic bridging or VTE prophylaxis if subtherapeutic* *Patients likely should be on concurrent therapeutic bridging if subtherapeutic* Hold warfarin for INR greater than 3 Hold warfarin for INR greater than 3.5 Consider initial dosing 5 to 7.5 mg for new start warfarin patients Consider initiating at 7.5 mg for patients with: BMI greater than 40 kg/m2 Weight greater than 100 kg Age younger than 60 years Higher INR goal Lackof medications known to increase the INR Concurrent meds known to decrease INR or warfarin concentration (e.g. carbamazepine) Limited comorbidities Need for bridging Low risk of bleeding Consider initiating at 3 mg for patients with: Age greater than 70 years Weight less than 50 kg Comorbid conditions Medications interacting with warfarin to increase INR (liver dysfunction, CHF exacerbation) (e.g., amiodarone, antibiotics) Increased risk for bleeding (recent surgery/procedure, history of GI bleeding, history of hemorrhagic stroke) Considerations for patients resuming/continuing home dosing regimens These factors paired with the patient's home regimen should be used to select doses INR upon admission Time in therapeutic range as outpatient Impact of admitting diagnosis/comorbid conditions on INR trend Impact of any recently started medications (e.g. vitamin k, antibiotics, amiodarone) Time since last dose of warfarin Current INR Doses may be adjusted based on laboratory results and the pharmacokinetic and pharmacodynamic principles of the medication and patient. Nusrat Us RPh 10/18/23 9:53 AM DING ADMIN * Felipe Robledo DO - 10/18/2023 9:43 AM CST Cardiology Progress Note - [facility] SUBJECTIVE: Extubated this am Arousable but mumbling Stable hemodynamics On heparin drip Current Medications: Scheduled Meds:acetaminophen, 1,000 mg, oral, Q6H ASHLEY aspirin, 81 mg, oral, Daily atorvastatin, 80 mg, oral, Daily calcitRIOL, 0.25 mcg, oral, Daily calcium acetate(phosphat bind), 667 mg, oral, TID with meals calcium acetate(phosphat bind), 667 mg, oral, Nightly ceFAZolin, 1,000 mg, intravenous, Q24H ASHLEY docusate sodium, 100 mg, oral, BID ezetimibe, 10 mg, oral, Daily insulin regular, 2-14 Units, intravenous, Once pantoprazole DR, 40 mg, oral, Daily senna, 1 tablet, oral, BID sodium chloride 0.9%, 0.5-20 mL, intra-catheter, Q8H ASHLEY sodium chloride 0.9%, 0.5-20 mL, intra-catheter, Q8H ASHLEY Continuous Infusions:Dianeal low calcium-dextrose 2.5 % 6,000 mL dialysis solution, Dianeal low calcium-dextrose 2.5 % 6,000 mL dialysis solution, DOButamine, 4 mcg/kg/min, Last Rate: 4 mcg/kg/min (10/18/23 0842) heparin, 0-33 Units/kg/hr, Last Rate: 6.3 Units/kg/hr (10/18/23 0913) insulin regular, 0-30 Units/hr, Last Rate: 4 Units/hr (10/18/2318) norepinephrine, 0-2 mcg/kg/min, Last Rate: 0.01 mcg/kg/min (10/18/23 08) sodium chloride 0.9%, 10 mL/hr sodium chloride 0.9%, 10 mL/hr, Last Rate: 10 mL/hr (10/17/23 1437) sodium chloride 0.9%, 3-12 mL/hr vasopressin, 0.04 Units/min, Last Rate: 0.04 Units/min (10/18/23 0858) PRN Meds:. bisacodyL calcium chloride sodium chloride 0.9% sodium chloride 0.9% dextrose dextrose OR dextrose dextrose 5% water glucagon HYDROmorphone insulin lispro insulin regular magnesium sulfate ondansetron oxyCODONE polyethylene glycol potassium chloride ER OR potassium chloride potassium chloride ER OR potassium chloride potassium chloride ramelteon sodium chloride 0.9% sodium chloride 0.9% sodium chloride 0.9% Physical Examination: Vitals: 10/18/23 0745 10/18/23 0750 10/18/23 0800 10/18/23 0900 BP: BP Location: Pulse: 90 90 90 80 Resp: 20 17 19 15 Temp: TempSrc: SpO2: 99% 100% 100% 97% Weight: Height: General: No acute distress Neuro: Alert HEENT: normocephalic, atraumatic, thyroid not enlarged. I do not appreciate JVD. Neck: There are nocarotid bruits. Chest: symmetric, stable. Lungs: symmetric, unlabored, clear to auscultation bilaterally Heart: crisp s2, no murmurs, rubs, or gallops Abdomen: soft, non-tender, non-distended, bowel sounds present Extremities: no LE edema, palpable peripheral pulses BL Neurologic: No focal deficits Review of LABS: Recent Labs Lab Units 10/18/23 0154 WBC K/cumm 8.3 HEMOGLOBIN g/dL 8.5* HEMATOCRIT % 26.4* PLATELETS K/cumm 164 Recent Labs Lab Units 10/18/23 0846 10/18/23 0157 10/18/23 0154 SODIUM mmol/L -- -- 136 POTASSIUM PLASMA mmol/L -- -- 4.0 CHLORIDE mmol/L -- -- 98 CO2 mmol/L -- -- 20* ANIONGAP mmol/L -- -- 18* BUN SERUM mg/dL -- -- 71* CREATININE mg/dL -- -- 10.47* GLUCOSE mg/dL -- -- 174 POC GLUCOSE MONITOR mg/dL 115 < > -- CALCIUM mg/dL -- -- 9.2 < > = values in this interval not displayed. Recent Labs Lab Units 10/16/23 1544 CHOLESTEROL mg/dL 89 TRIGLYCERIDES mg/dL 106 HDL mg/dL 34* Lab Results Component Value Date HGBA1C 8.1 (H) 10/16/2023 Lab Results Component Value Date INR 1.18 10/18/2023 INR 1.22 (H) 10/17/2023 INR 1.23 (H) 10/17/2023 Lab Results Component Value Date TSH 0.80 03/21/2017 Review of Cardiovascular Data: Echo 10/16/23 1. Severe left ventricular systolic dysfunction. There is global hypokinesis. More focal hypokinesis of the apex Ejection Fraction is measured at (Simpsons) 30 %. 2. Normal appearance of the mitral valve leaflets. Mild mitral valve regurgitation. 3. Aortic cusps appear moderately calcified. Moderate to severe aortic stenosis. 4. Normal appearance of the tricuspid leaflets. Mild tricuspid regurgitation. ASSESSMENT/PLAN: 1. CAD: prior mi and multiple pci. The patient underwent cardiac catheterization that showed multivessel disease. His echo also showed that LVEF has dropped to 20-25% (65% in 05/2022). S/P cardiac surgery 10/17 with AVR and CABG x 3 . BRICE to LAD, SVG to OM, SVG to PDA 2. : replaced w mechanical valve. 3. Hypertension: Blood pressure is controlled. 4. Dyslipidemia: Continue on high-intensity statin. 5. Diabetes: Type 1 diabetic on insulin. Management per primary team. 6. ESRD: On peritoneal dialysis with management per Nephrology. 7. Paroxysmal Atrial Fibrillation: Occurred in 06/2022 during a hospital admission. He was on Apixaban which was stopped and is presently on Heparin. Will bridge to warfarin given mechanical avr. 8. DVT: Hx of RLE 2017. He was on Apixaban which was stopped and is presently on Heparin/warfarin bridge. Extubated with stable hemodynamics Heparin-->warfarin tonight Felipe Robledo DO, [facility] V[facility] 10/18/2023 9:43 AM DING ADMIN * Aleah Win DPT - 10/18/2023 8:44 AM CST Physical Therapy 10/18/23 0844 General PT Received On 10/18/23 Subjective Comment patient requiring multiple vasopressors: will re-attempt PT evaluation DING ADMIN * Dawna Castellanos NP - 10/18/2023 7:27 AM CSTAssociated Order(s): Critical Care Post-Procedure Diagnose(s): CAD in [place] artery Images from the original note were not included. [facility] CVR Daily Progress Note- Patient: Juvenal Garvin Jr. : 1970 Age: 53 y.o. male Admitting Physician: Jaqueline Valero MD Foundry Patternmaker: Kirsten Burns MD Shift: [facility] CVR AM Interval History: 1u prbc's 2 grams Mag Post transfusion labs Admitted to the hospital on 10/13/2023 11:18 PM for CAD in [place] artery [I25.10] Hospital Course: (10/17/23) s/p CABG x 3 (SVG-PDA, SVG-OM, BRICE-LAD) and mechanical AVR (25 [place]) by Dr. Valero Temp: [36.2 ??C (97.2 ??F)-37.4 ??C (99.3 ??F)] 37.3 ??C (99.1 ??F) Pulse: [80-98] 80 BP: (97-130)/(36-56) 130/56 Resp: [0-24] 15 SpO2: [92 %-100 %] 97 % Arterial Line BP: (94-131)/(33-51) 120/39 FiO2 (%): [40 %-100 %] 40 % PAP: 38/18 (10/18 1136) CVP: 8 mmHg (10/18 1136) PCWP: -- CO: 8.85 L/min (10/18 954) CI: 3.69 L/min/m2 (10/18 954) SVO2: -- Pacemaker Overdrive Pacing: -- Cardiac Rhythm: Atrial paced (10/18 999) Pacer Mode: -- NPPV Mode: CPAP (10/17/23311) PEEP/CPAP/EPAP Set (cmH2O): 16 cm H20 FiO2 (%): 40 % O2 Del Method: Nasal cannula FiO2 (%): 40 % O2 Flow Rate (L/min): 5 L/min Scheduled Meds: acetaminophen, 1,000 mg, Q6H ASHLEY OR [DISCONTINUED] acetaminophen, 1,000 mg, Q6H ASHLEY OR [DISCONTINUED] acetaminophen, 650 mg, Q6H ASHLEY aspirin, 81 mg, Daily OR [DISCONTINUED] aspirin, 325 mg, Daily OR [DISCONTINUED] aspirin, 300 mg, Daily atorvastatin, 80 mg, Daily calcitRIOL, 0.25 mcg, Daily calcium acetate(phosphat bind), 667 mg, TID with meals calcium acetate(phosphat bind), 667 mg, Nightly ceFAZolin, 1,000 mg, Q24H ASHLEY docusate sodium, 100 mg, BID OR [DISCONTINUED] docusate, 100 mg, BID ezetimibe, 10 mg, Daily insulin regular, 2-14 Units, Once pantoprazole DR, 40 mg, Daily senna, 1 tablet, BID OR [DISCONTINUED] senna, 8.8 mg, BID sodium chloride 0.9%, 0.5-20 mL, Q8H ASHLEY sodium chloride 0.9%, 0.5-20 mL, Q8H ASHLEY warfarin, 3 mg, Once - 1800 Physical Exam: Neuro: drowsy, moaning, oriented x 1, able to follow simple commands with encouragement, PERRL 2mm Cardiovascular: S1 S2, RRR, click heard epicardial wires AAI 80, periphery warm with palpable pulses, diffuse generalized non pitting edema Pulmonary: NC Breath sounds clear but diminished to auscultation bilaterally, normal respiratory rate and effort GI: Abdomen soft, distended, bowel sounds hypoactive. : Nguyen in place draining clear gamal urine Skin: Warm, dry, Sternal incision with OR dressing clean, dry, intact. SVG site with dermabond PENNIE. Drains: Chest tubes to -20 suction with serosanguinous drainage, no air leak. Infusions: Dianeal low calcium-dextrose 2.5 % 6,000 mL dialysis solution, Dianeal low calcium-dextrose 2.5 % 6,000 mL dialysis solution, DOButamine, 4 mcg/kg/min, Last Rate: 4 mcg/kg/min (10/18/23 1000) heparin, 0-33 Units/kg/hr, Last Rate: 6.3 Units/kg/hr (10/18/23 1000) insulin regular, 0-30 Units/hr, Last Rate: 1 Units/hr (10/18/23 1058) sodium chloride 0.9%, 10 mL/hr sodium chloride 0.9%, 10 mL/hr, Last Rate: 10 mL/hr (10/17/23 1437) sodium chloride 0.9%, 3-12 mL/hr vasopressin, 0-0.04 Units/min PRN Meds: bisacodyL, 10 mg calcium chloride, 1,000 mg, 1,000 mg at 10/18/23 0032 sodium chloride 0.9%, 30 mL sodium chloride 0.9%, 30 mL dextrose, 125 mL dextrose, 15 g OR dextrose, 250 mL dextrose 5% water, 10-30 mL glucagon, 1 mg HYDROmorphone, 0.5 mg, 0.5 mg at 10/18/23 0842 insulin lispro, 1-14 Units insulin regular, 2-14 Units, 2 Units at 10/18/23 0608 magnesium sulfate, 2 g ondansetron, 4 mg, 4 mg at 10/18/23 1156 oxyCODONE, 5 mg, 5 mg at 10/18/23 1052 polyethylene glycol, 17 g potassium chloride ER, 20 mEq OR potassium chloride, 20 mEq potassium chloride ER, 40 mEq OR potassium chloride, 40 mEq potassium chloride, 20 mEq ramelteon, 8 mg sodium chloride 0.9%, 0.5-20 mL sodium chloride 0.9%, 0.5-20 mL sodium chloride 0.9%, 10 mL/hr Date 10/17/23699 - 10/18/23 0659 10/18/23699 - 10/19/23 0659 Shift [id number] 24 Hour Total [id number] 24 Hour Total INTAKE I.V.(mL/kg) 2724(21.6) 950(7.5) 3674(29.1) Blood 1800 421 0807 NG/GT 60 62 122 IV Piggyback 575 50 625 Shift Total(mL/kg) 5349(42.4) 1402(11.1) 6751(53.5) OUTPUT Urine(mL/kg/hr) 77(0.1) 163(0.1) 240(0.1) 60 60 Emesis/NG output 150 150 Drains 410 60 470 0 0 Other 4000 4000 1279 1279 Blood 1000 1000 Chest Tube 652 149 7085 10 10 Shift Total(mL/kg) 6247(49.5) 658(5.2) 6905(54.7) 1349(10.7) 1349(10.7) [facility] -[phone] -[phone] -1040 -1344 Weight (kg) 126.2 126.2 126.2 126.2 126.2 126.2 LDA Introducer 10/17/23 Right Internal jugular (Active) Number of days: 1 CVC Quadruple Lumen 10/17/23 Right Internal jugular (Active) Number of days: 1 PA Catheter 7.5 Fr. Right Other (Comment) (Active) Number of days: 1 Arterial Line 10/17/23 Right Radial (Active) Number of days: 1 Pacer Wires (Active) Number of days: 0 Urethral Catheter Non-latex;Temperature probe (Active) Number of days: 1 Chest Tube Left Pleural (Active) Number of days: 0 Closed/Suction/Open Drain Right;Proximal Thigh Bulb 19 Fr. (Active) Number of days: 1 Y Chest Tube A and B Mediastinal 28 Fr. Mediastinal 24 Fr. (Active) Number of days: 0 Recent Labs Lab Units 10/18/2315310/17/23181310/17/23132610/15/23 0106 SODIUM mmol/L 136 -- 139 130* POTASSIUM PLASMA mmol/L 4.0 4.2 3.8 4.3 CHLORIDE mmol/L 98 -- 98 89* CO2 mmol/L 20* -- 23 22 BUN SERUM mg/dL 71* -- 75* 78* CREATININE mg/dL 10.47* -- 10.43* 10.57* MAGNESIUM mg/dL 2.5 -- 2.3 -- PHOSPHORUS PLASMA mg/dL 6.5* -- 6.1* 5.7* Recent Labs Lab Units 10/17/23225410/17/23132610/14/23 0104 ALK PHOS Units/L -- -- 98 ALT Units/L -- -- 21 AST Units/L -- -- 28 BILIRUBIN TOTAL mg/dL -- -- 0.3 LACTATE mmol/L 0.9 1.2 -- Recent Labs Lab Units 10/18/2315310/17/23225410/17/23 181 WBC K/cumm 8.3 7.7 7.2 HEMOGLOBIN g/dL 8.5* 8.8* 8.0* HEMATOCRIT % 26.4* 27.2* 24.7* PLATELETS K/cumm 164 165 161 Recent Labs Lab Units 10/18/2315310/17/23181110/17/23 1632 10/17/23 1327 APTT sec -- 32 63* 37 INR 1.18 1.22* 1.23* 1.29* Recent Labs Lab Units 10/18/2315310/17/23225510/17/23 181 PH ART 7.35 7.33* 7.40 PCO2 ART mmHg 38 38 35 PO2 ART mmHg 92 102 69* HCO3 ART (CALC) mmol/L 21 20 22 BASE EXC ART mmol/L -4 -5 -2 O2 SAT ART (CALC) % 97 97 94 Recent Labs Lab Units 10/16/23 1527 HEMOGLOBIN A1C % 8.1* Impression and Plan: Cardiogenic Shock Vasoplegia NSTEMI s/p CABG Aortic valve stenosis s/p mechanical AVR Post CPB LEIA on [employer] 5 with LVEF 40-50%, normal RV. (Told during report) no note in place. Arrived on [employer] 5, NE 0.05 with low filling pressures and AAI 90. Post op bleeding requiring multiple transfusions. Bleeding from CT slowed overnight but oozing at lines and drain sites. AAI 90, SBP 100-110s, PAP 20-30/10s, CVP 5-8, CI 2.8-3.9 SVR 400-500s on [employer] 5, NE 0.02, vaso 0.04 Extubated early this AM. - Wean [employer] to 4 and hold - EPW now AAI 80 - CT to (-)20cm suction - ASA daily - intermediate anticoagulation plan Warfarin and Plavix for NSTEMI - statin daily - Start heparin drip low nomogram for mAVR and Warfarin tonight, watch for bleeding - Wean NE, then Vaso for MAP >65 Paroxysmal atrial fibrillation Sinus bradycardia History of pAF. On Eliquis at home. Was on Heparin drip pre op. Arrived from OR AAI at 90 with reported bradycardia in PCU while on BB SB 50-60s. - Decrease pacing to AAI 80 - [employer] wean as above - Keep K>4.0, Mag>2.0 Acute Respiratory Insufficiency Atelectasis Pleural effusions BEN History of BEN with intermittent compliance with CPAP. Extubated this AM to PA. CXR with bibasilar atelectasis and affusions. - CPAP at night - Pulmonary hygiene with IS and C&DB - Wean supplemental O2 for SpO2 > 92% Acute Postoperative Pain Expected postop pain following cardiac surgery. Extubated this AM and moaning in pain. - Scheduled acetaminophen 1gm Q6H - Oxycodone 5mg Q3H PRN 1st line. May repeat in 1 hour if pain is uncontrolled or increasing. Max 2doses within 1 dosing interval. - Increase Hydromorphone to 0.5mg Q2H PRN for breakthrough pain ESRD on PD Hyperphosphatemia On PD at home. Makes some urine. Placed on cycler for PD last night and drained 1.3L this AM. Phos 6.5 Cr 10.47. - Continue PD per renal - Holding diuretics today - Home Phoslo, calcitrol resumed - Avoid nephrotoxic medications - Renally dose medications - Maintain MAP > 65 for renal perfusion - AM BMP GERD - home PPI History of DVT In RLE 2017. Had been on Eliquis at home. - Starting low nomogram Heparin, warfarin today Type 1 DM Admitted to OSH for DKA and was transitioned off Insulin drip prior to transfer to [facility]. Insulin pump not working when he presented to ER. Very labile blood sugars on basal/SSI regimen with glucose up to 300s. Likely difficulty with management due to PD. Up to 6 units/hr overnight. Had been on [id number] Insulin was down to 0.5units/hr. - DC D5LR - Continue Insulin infusion per [place] protocol - do not turn off drip - Consult Dr. Bethea for endocrine management Acute Blood Loss Anemia Chronic anemia Coagulopathy - improved Expected following cardiac surgery. 2 PRBC, 2 FFP, 10 Cryo, 1 PLT for intraop blood products. Chronic anemia with ESRD. Coagulopathy post op and received Protamine DDAVP, FFP, and PRBC. CT output slowed but oozing at lines and drains. Hgb 8.5, PLT 164. - No current indication for transfusion, consider if patient becomes hemodynamically unstable with increased pressor requirements or Hgb < 7.0. - CBC daily Leukocytosis Likely inflammatory following procedure. - No current indication for culture, consider if temp > 38.5 - Continue periop antibiotics to completion Additional ICU Care: DVT prophylaxis: low nomogram Heparin , warfarin tonight PUD prophylaxis: Continue home PPI. Nutrition: ADAT Bowel regimen: Scheduled docusate and senna. Polyethylene glycol and bisacodyl suppository PRN. Glycemic control: [place] Protocol insulin gtt.. Lab Results Component Value Date HGBA1C 8.1 (H) 10/16/2023 Physical therapy/Activity: PT/OT ordered today to start when the patient can actively participate Updates: 1200: Cuff pressures better than dean. NE off. Will wean Vaso via cuff pressures. CI 3.5 after DBAdown to 4. 1430: CI >3.0. Will DC PAC/cordis and decrease [employer] to 3. Vaso off. Glucose in 80s, RN aware to drop Insulin to 0.5units/kg/hr. Dawna Castellanos NP Critical Care Performed by: Dawna Castellanos NP Authorized by: Dawna Castellanos NP CRITICAL CARE: Team: [facility] CT Shift: AM Level of Billing: Critical Care My time spent with this patient was 90 minutes: Critical Provider Statement: I have seen and examined the patient on this day of service. I have reviewed and confirmed the history, physical exam, laboratory and radiologic data as documented in thesigned ICU note. I have reviewed and discussed my treatment plan with the ICU team and other medical/as400 consultant staff, making frequent assessments and decisions regarding this patient's complex medical care. Critical Care time was exclusive of time spent performing separately billed procedures, treating other patients, and teaching. This time was in addition to and separate from critical care provided by other practitioners in my group on this day of service. Critical Care was necessary to treat or prevent imminent or life-threatening deterioration of the following conditions: I spent time documenting in the medical record, I spent time discussing the management of this critically ill patient with consultants and the medical staff and I spent time reviewing and interpreting data from bedside monitors, laboratory results, and imaging Cosigned by Kirsten Burns MD at 10/19/2023 12:02 PM BUILDING ADMIN DING ADMIN DING ADMIN * Suzie Aiken OT - 10/18/2023 6:55 AM CST Occupational Therapy 10/18/23 0655 General OT Received On 10/18/23 Subjective Comment Pt remains intubated, sedated, and requiring multiple pressors for BP control. Will defer skilled OT at this time and follow up as medically appropriate OT Missed Visit Reason Other (comment) DING ADMIN * Dilip Cohen MD - 10/17/2023 4:24 PM CST Cardiology Progress note SUBJECTIVE: Mr. Limon/Duy CABG x 3 and AVR with [place] valve Intubated/sedated INTERIM CHANGE PAST 24 HOURS: none Full ROS unable to assess OBJECTIVE: Vitals: 10/17/23 1325 10/17/23 1330 10/17/23 1345 10/17/23 1538 BP: (!) 97/36 BP Location: Pulse: 90 90 91 90 Resp: 05 11 9 12 Temp: 36.2 ??C (97.2 ??F) TempSrc: Core SpO2: 97% 92% 100% 95% Weight: Height: I/O last 2 completed shifts: In: 4390 [P.O.:1320; I.V.:570; Other:2500] Out: 4945 [Other:4945] I/O this shift: In: 3548 [I.V.:2031; Blood:1142; IV Piggyback:375] Out: 5457 [Urine:77; Other:4000; Blood:1000; Chest Tube:380] General: intubated/sedated Neuro: moves all extremities well prior to CABG and AVR HEENT: normocephalic, atraumatic, thyroid not enlarged. I do not appreciate JVD. Neck: There are nocarotid bruits. Lungs: symmetric, unlabored, clear to auscultation bilaterally Heart: S1,S2, regular rate & rhythm, no murmurs, rubs, or gallops Abdomen: soft, non-tender, non-distended, bowel sounds present Extremities: no LE edema, palpable peripheral pulses BL Neurologic: No focal deficits LABS: Recent Results (from the past 48 hour(s)) POCT glucose Collection Time: 10/15/23 5:10 PM Result Value Ref Range Glucose, POC 72 70 - 140 mg/dL POCT glucose Collection Time: 10/15/23 8:12 PM Result Value Ref Range Glucose, POC 73 70 - 140 mg/dL POCT glucose Collection Time: 10/15/23 10:26 PM Result Value Ref Range Glucose, POC 69 (L) 70 - 140 mg/dL POCT glucose Collection Time: 10/15/23 10:45 PM Result Value Ref Range Glucose, POC 84 70 - 140 mg/dL Glucose comment 1 Follow Protocol POCT glucose Collection Time: 10/15/23 11:01 PM Result Value Ref Range Glucose, POC 93 70 - 140 mg/dL Glucose comment 1 Follow Protocol POCT glucose Collection Time: 10/15/23 11:20 PM Result Value Ref Range Glucose, POC 105 70 - 140 mg/dL Check Sample Collection Time: 10/16/23 12:27 AM Result Value Ref Range ABO Rh A Positive CBC with auto differential Collection Time: 10/16/23 12:31 AM Result Value Ref Range WBC 7.7 3.8 - 9.9 K/cumm Hgb 9.4 (L) 13.0 - 17.5 g/dL Hct 29.7 (L) 38.9 - 50.3 % Plt 330 150 - 400 K/cumm MPV 10.9 9.1 - 12.3 fL RBC 3.24 (L) 4.30 - 5.80 M/cumm MCV 91.7 81.3 - 96.4 fL MCH 29.0 27.1 - 33.3 pg MCHC 31.6 (L) 32.3 - 35.7 g/dL RDW CV 14.6 11.1 - 14.9 % RDW SD 47.2 35.7 - 48.1 fL NRBC abs 0.03 (H) 0.00 - 0.01 K/cumm aPTT Collection Time: 10/16/23 12:31 AM Result Value Ref Range aPTT 80 (H) 28 - 38 sec Differential, auto Collection Time: 10/16/23 12:31 AM Result Value Ref Range Neutrophil abs 4.5 1.5 - 6.5 K/cumm Imm gran abs 0.2 (H) 0.0 - 0.1 K/cumm Lymphocyte abs 1.8 0.8 - 3.3 K/cumm Monocyte abs 1.0 (H) 0.2 - 0.8 K/cumm Eosinophil abs 0.2 0.0 - 0.5 K/cumm Basophil abs 0.0 0.0 - 0.1 K/cumm Neutrophil pct 58.6 % Imm gran pct 2.1 % Lymphocyte pct 23.1 % Monocyte pct 13.2 % Eosinophil pct 2.5 % Basophil pct 0.5 % POCT glucose Collection Time: 10/16/23 12:37 AM Result Value Ref Range Glucose, POC 158 (H) 70 - 140 mg/dL POCT glucose Collection Time: 10/16/23 4:48 AM Result Value Ref Range Glucose, POC 329 (H) 70 - 140 mg/dL POCT glucose Collection Time: 10/16/23 8:11 AM Result Value Ref Range Glucose, POC 266 (H) 70 - 140 mg/dL POCT glucose Collection Time: 10/16/23 12:22 PM Result Value Ref Range Glucose, POC 74 70 - 140 mg/dL Prepare RBC: 3 Units Collection Time: 10/16/23 2:04 PM Result Value Ref Range Product code [id number] Unit Number [id number] Product Blood Type APOS Dispense Status ISSUED Product code [id number] Unit Number [id number] Product Blood Type APOS Dispense Status ISSUED Product code [id number] Unit Number [id number] Product Blood Type APOS Dispense Status CROSSMATCHED Hemoglobin A1c Collection Time: 10/16/23 3:27 PM Result Value Ref Range Hgb A1C 8.1 (H) 4.0 - 5.6 % Estimated Average Glucose 186 mg/dL Lipid panel Collection Time: 10/16/23 3:44 PM Result Value Ref Range Cholesterol 89 30 - 199 mg/dL Triglycerides 106 <=149 mg/dL HDL 34 (L) >=40 mg/dL LDL, calculated 34 <=129 mg/dL Non-HDL Cholesterol 55 mg/dL Chol/HDL ratio 3 aPTT Collection Time: 10/16/23 3:50 PM Result Value Ref Range aPTT 73 (H) 28 - 38 sec POCT glucose Collection Time: 10/16/23 5:35 PM Result Value Ref Range Glucose, POC 76 70 - 140 mg/dL POCT glucose Collection Time: 10/16/23 7:49 PM Result Value Ref Range Glucose, POC 114 70 - 140 mg/dL Type and screen Collection Time: 10/16/23 7:51 PM Result Value Ref Range Maribel, indirect Negative ABO Rh A Positive CBC with auto differential Collection Time: 10/17/23 12:29 AM Result Value Ref Range WBC 9.7 3.8 - 9.9 K/cumm Hgb 9.0 (L) 13.0 - 17.5 g/dL Hct 27.4 (L) 38.9 - 50.3 % Plt 289 150 - 400 K/cumm MPV 10.7 9.1 - 12.3 fL RBC 3.04 (L) 4.30 - 5.80 M/cumm MCV 90.1 81.3 - 96.4 fL MCH 29.6 27.1 - 33.3 pg MCHC 32.8 32.3 - 35.7 g/dL RDW CV 14.7 11.1 - 14.9 % RDW SD 46.4 35.7 - 48.1 fL NRBC abs 0.03 (H) 0.00 - 0.01 K/cumm aPTT Collection Time: 10/17/23 12:29 AM Result Value Ref Range aPTT 92 (H) 28 - 38 sec Differential, auto Collection Time: 10/17/23 12:29 AM Result Value Ref Range Neutrophil abs 6.4 1.5 - 6.5 K/cumm Imm gran abs 0.2 (H) 0.0 - 0.1 K/cumm Lymphocyte abs 1.6 0.8 - 3.3 K/cumm Monocyte abs 1.1 (H) 0.2 - 0.8 K/cumm Eosinophil abs 0.3 0.0 - 0.5 K/cumm Basophil abs 0.0 0.0 - 0.1 K/cumm Neutrophil pct 66.0 % Imm gran pct 2.1 % Lymphocyte pct 16.8 % Monocyte pct 11.6 % Eosinophil pct 3.1 % Basophil pct 0.4 % POCT glucose Collection Time: 10/17/23 12:51 AM Result Value Ref Range Glucose, POC 242 (H) 70 - 140 mg/dL POCT glucose Collection Time: 10/17/23 2:29 AM Result Value Ref Range Glucose, POC 288 (H) 70 - 140 mg/dL POCT glucose Collection Time: 10/17/23 5:50 AM Result Value Ref Range Glucose, POC 307 (H) 70 - 140 mg/dL POCT glucose Collection Time: 10/17/23 7:47 AM Result Value Ref Range Glucose, POC 279 (H) 70 - 140 mg/dL Prepare platelets: 1 Units Collection Time: 10/17/23 9:12 AM Result Value Ref Range Product code [id number] Unit Number [id number] Product Blood Type BPOS Dispense Status ISSUED Prepare plasma: 2 Units Collection Time: 10/17/23 9:12 AM Result Value Ref Range Product code [id number] Unit Number [id number] Product Blood Type APOS Dispense Status ISSUED Product code Z8445P51 Unit Number [id number] Product Blood Type ANEG Dispense Status ISSUED Prepare cryoprecipitate (pooled units): 2 Units Collection Time: 10/17/23 9:12 AM Result Value Ref Range Product code [id number] Unit Number [id number] Product Blood Type OPOS Dispense Status ISSUED Product code [id number] Unit Number [id number] Product Blood Type OPOS Dispense Status ISSUED POC Blood Gas and Chemistries, Arterial - Collection Time: 10/17/23 9:47 AM Result Value Ref Range pH, Art POC 7.30 (L) 7.35 - 7.45 pCO2, Art POC 40 35 - 45 mmHg pO2, Art POC 65 (L) 80 - 108 mmHg Na, POC 130 (L) 135 - 145 mmol/L K POC 4.3 3.3 - 4.9 mmol/L Cl, POC 97 97 - 110 mmol/L Ionized Ca, POC 4.39 (L) 4.50 - 5.10 mg/dL Glucose, POC 202 (H) 70 - 199 mg/dL Lactate, POC 1.1 0.0 - 2.0 mmol/L O2Hb, Art POC 90.8 90.0 - 95.0 % Carboxhgb fract 0.7 0.0 - 2.9 % Methemoglobin 0.0 0.0 - 1.9 % HHb, POC 8.5 (H) 0.0 - 5.0 % SO2 (oern) arterial 91 90 - 95 % Total CO2, Art POC 21 (L) 22 - 32 mmol/L BE, art, POC -6.2 (L) -2.0 - 2.0 mmol/L HCO3, Art POC 20 20 - 30 mmol/L Hct, POC 26.0 (L) 38.9 - 50.3 % Total Hb, POC 8.6 (L) 13.0 - 17.5 g/dL POC Blood Gas and Chemistries, Arterial - Collection Time: 10/17/23 10:11 AM Result Value Ref Range pH, Art POC 7.25 (L) 7.35 - 7.45 pCO2, Art POC 40 35 - 45 mmHg pO2, Art POC 400 (H) 80 - 108 mmHg Na, POC 129 (L) 135 - 145 mmol/L K POC 4.6 3.3 - 4.9 mmol/L Cl, POC 96 (L) 97 - 110 mmol/L Ionized Ca, POC 4.08 (L) 4.50 - 5.10 mg/dL Glucose, POC 182 70 - 199 mg/dL Lactate, POC 1.3 0.0 - 2.0 mmol/L O2Hb, Art POC 98.1 (H) 90.0 - 95.0 % Carboxhgb fract 0.3 0.0 - 2.9 % Methemoglobin 0.6 0.0 - 1.9 % HHb, POC 0.9 0.0 - 5.0 % SO2 (oren) arterial 99 (H) 90 - 95 % Total CO2, Art POC 19 (L) 22 - 32 mmol/L BE, art, POC -9.0 (L) -2.0 - 2.0 mmol/L HCO3, Art POC 18 (L) 20 - 30 mmol/L Hct, POC 22.0 (L) 38.9 - 50.3 % Total Hb, POC 7.4 (L) 13.0 - 17.5 g/dL POC Blood Gas and Chemistries, Venous - Collection Time: 10/17/23 10:21 AM Result Value Ref Range pH, Juice POC 7.27 (L) 7.32 - 7.45 pCO2, juice POC 53 (H) 40 - 50 mmHg pO2, juice POC 43 (H) 35 - 42 mmHg Na, POC 133 (L) 135 - 145 mmol/L K POC 4.9 3.3 - 4.9 mmol/L Cl, POC 95 (L) 97 - 110 mmol/L Ionized Ca, POC 4.19 (L) 4.50 - 5.10 mg/dL Glucose, POC 182 70 - 199 mg/dL Lactate, POC 1.5 0.0 - 2.0 mmol/L O2Hb, Juice POC 67.4 (L) 90.0 - 95.0 % Carboxhgb fract 0.8 0.0 - 2.9 % Methemoglobin 0.7 0.0 - 1.9 % HHb, POC 31.0 (H) 0.0 - 5.0 % O2 Sat, Juice POC (Oren) 68 68 - 77 % Total CO2, juice POC 26 22 - 32 mmol/L Base excess, juice POC -2.6 mmol/L HCO3, Juice POC 22 20 - 30 mmol/L Hct, POC 23.0 (L) 38.9 - 50.3 % Total Hb, POC 7.6 (L) 13.0 - 17.5 g/dL POC Blood Gas and Chemistries, Arterial - Collection Time: 10/17/23 10:38 AM Result Value Ref Range pH, Art POC 7.34 (L) 7.35 - 7.45 pCO2, Art POC 42 35 - 45 mmHg pO2, Art POC 357 (H) 80 - 108 mmHg Na, POC 132 (L) 135 - 145 mmol/L K POC 4.7 3.3 - 4.9 mmol/L Cl, POC 96 (L) 97 - 110 mmol/L Ionized Ca, POC 4.18 (L) 4.50 - 5.10 mg/dL Glucose, POC 170 70 - 199 mg/dL Lactate, POC 1.8 0.0 - 2.0 mmol/L O2Hb, Art POC 97.7 (H) 90.0 - 95.0 % Carboxhgb fract 0.0 0.0 - 2.9 % Methemoglobin 0.7 0.0 - 1.9 % HHb, POC 1.5 0.0 - 5.0 % SO2 (oren) arterial 98 (H) 90 - 95 % Total CO2, Art POC 24 22 - 32 mmol/L BE, art, POC -2.9 (L) -2.0 - 2.0 mmol/L HCO3, Art POC 23 20 - 30 mmol/L Hct, POC 24.0 (L) 38.9 - 50.3 % Total Hb, POC 8.0 (L) 13.0 - 17.5 g/dL POC Blood Gas and Chemistries, Arterial - Collection Time: 10/17/23 11:20 AM Result Value Ref Range pH, Art POC 7.32 (L) 7.35 - 7.45 pCO2, Art POC 41 35 - 45 mmHg pO2, Art POC 362 (H) 80 - 108 mmHg Na, POC 130 (L) 135 - 145 mmol/L K POC 4.5 3.3 - 4.9 mmol/L Cl, POC 97 97 - 110 mmol/L Ionized Ca, POC 4.19 (L) 4.50 - 5.10 mg/dL Glucose, POC 133 70 - 199 mg/dL Lactate, POC 2.1 (H) 0.0 - 2.0 mmol/L O2Hb, Art POC 97.8 (H) 90.0 - 95.0 % Carboxhgb fract 0.1 0.0 - 2.9 % Methemoglobin 0.5 0.0 - 1.9 % HHb, POC 1.6 0.0 - 5.0 % SO2 (oren) arterial 98 (H) 90 - 95 % Total CO2, Art POC 22 22 - 32 mmol/L BE, art, POC -4.7 (L) -2.0 - 2.0 mmol/L HCO3, Art POC 21 20 - 30 mmol/L Hct, POC 25.0 (L) 38.9 - 50.3 % Total Hb, POC 8.2 (L) 13.0 - 17.5 g/dL POC Blood Gas and Chemistries, Arterial - Collection Time: 10/17/23 11:51 AM Result Value Ref Range pH, Art POC 7.36 7.35 - 7.45 pCO2, Art POC 39 35 - 45 mmHg pO2, Art POC 407 (H) 80 - 108 mmHg Na, POC 131 (L) 135 - 145 mmol/L K POC 5.5 (H) 3.3 - 4.9 mmol/L Cl, POC 97 97 - 110 mmol/L Ionized Ca, POC 3.99 (L) 4.50 - 5.10 mg/dL Glucose, POC 115 70 - 199 mg/dL Lactate, POC 2.8 (H) 0.0 - 2.0 mmol/L O2Hb, Art POC 97.2 (H) 90.0 - 95.0 % Carboxhgb fract 0.0 0.0 - 2.9 % Methemoglobin 0.9 0.0 - 1.9 % HHb, POC 1.9 0.0 - 5.0 % SO2 (oren) arterial 98 (H) 90 - 95 % Total CO2, Art POC 23 22 - 32 mmol/L BE, art, POC -3.2 (L) -2.0 - 2.0 mmol/L HCO3, Art POC 22 20 - 30 mmol/L Hct, POC 24.0 (L) 38.9 - 50.3 % Total Hb, POC 7.9 (L) 13.0 - 17.5 g/dL Prepare RBC: 2 Units Collection Time: 10/17/23 12:11 PM Result Value Ref Range Product code Q4237J33 Unit Number [id number] Product Blood Type APOS Dispense Status ISSUED Product code P0753J85 Unit Number [id number] Product Blood Type APOS Dispense Status CROSSMATCHED POC Blood Gas and Chemistries, Arterial - Collection Time: 10/17/23 12:26 PM Result Value Ref Range pH, Art POC 7.31 (L) 7.35 - 7.45 pCO2, Art POC 48 (H) 35 - 45 mmHg pO2, Art POC 112 (H) 80 - 108 mmHg Na, POC 134 (L) 135 - 145 mmol/L K POC 4.0 3.3 - 4.9 mmol/L Cl, POC 97 97 - 110 mmol/L Ionized Ca, POC 4.80 4.50 - 5.10 mg/dL Glucose, POC 147 70 - 199 mg/dL Lactate, POC 2.9 (H) 0.0 - 2.0 mmol/L O2Hb, Art POC 96.7 (H) 90.0 - 95.0 % Carboxhgb fract 0.8 0.0 - 2.9 % Methemoglobin 0.6 0.0 - 1.9 % HHb, POC 1.9 0.0 - 5.0 % SO2 (oren) arterial 98 (H) 90 - 95 % Total CO2, Art POC 26 22 - 32 mmol/L BE, art, POC -2.1 (L) -2.0 - 2.0 mmol/L HCO3, Art POC 23 20 - 30 mmol/L Hct, POC 24.0 (L) 38.9 - 50.3 % Total Hb, POC 8.1 (L) 13.0 - 17.5 g/dL POCT glucose Collection Time: 10/17/23 1:25 PM Result Value Ref Range Glucose, POC 137 70 - 140 mg/dL Lactate Collection Time: 10/17/23 1:27 PM Result Value Ref Range Lactate 1.2 0.7 - 2.0 mmol/L Fibrinogen Collection Time: 10/17/23 1:27 PM Result Value Ref Range Fibrinogen 393 170 - 400 mg/dL Phosphorus Collection Time: 10/17/23 1:27 PM Result Value Ref Range Phosphorus, pl 6.1 (H) 2.3 - 4.5 mg/dL Basic metabolic panel Collection Time: 10/17/23 1:27 PM Result Value Ref Range Sodium 139 135 - 145 mmol/L Potassium, pl 3.8 3.3 - 4.9 mmol/L Chloride 98 97 - 110 mmol/L CO2 23 22 - 32 mmol/L Anion gap 18 (H) 2 - 15 mmol/L BUN 75 (H) 6 - 25 mg/dL Creatinine 10.43 (H) 0.80 - 1.30 mg/dL Glucose 119 70 - 199 mg/dL Calcium 8.9 8.5 - 10.3 mg/dL Magnesium Collection Time: 10/17/23 1:27 PM Result Value Ref Range Magnesium 2.3 1.4 - 2.5 mg/dL Calcium, ionized Collection Time: 10/17/23 1:27 PM Result Value Ref Range Calcium, Ionized 4.51 4.50 - 5.10 mg/dL Blood gas, arterial Collection Time: 10/17/23 1:27 PM Result Value Ref Range pH, Art 7.36 7.35 - 7.45 PCO2, Arterial 42 35 - 45 mmHg PO2, Arterial 65 (L) 83 - 108 mmHg HCO3 Art (Calculated) 24 20 - 30 mmol/L BE, art -2 mmol/L O2 Sat Art (Calculated) 92 (L) 94 - 98 % CBC without differential Collection Time: 10/17/23 1:27 PM Result Value Ref Range WBC 7.4 3.8 - 9.9 K/cumm Hgb 8.4 (L) 13.0 - 17.5 g/dL Hct 26.0 (L) 38.9 - 50.3 % Plt 167 150 - 400 K/cumm MPV 10.7 9.1 - 12.3 fL RBC 2.85 (L) 4.30 - 5.80 M/cumm MCV 91.2 81.3 - 96.4 fL MCH 29.5 27.1 - 33.3 pg MCHC 32.3 32.3 - 35.7 g/dL RDW CV 15.4 (H) 11.1 - 14.9 % RDW SD 49.8 (H) 35.7 - 48.1 fL NRBC abs 0.06 (H) 0.00 - 0.01 K/cumm Protime-INR Collection Time: 10/17/23 1:27 PM Result Value Ref Range PT 14.7 (H) 10.3 - 13.7 sec INR 1.29 (H) 0.90 - 1.20 aPTT Collection Time: 10/17/23 1:27 PM Result Value Ref Range aPTT 37 28 - 38 sec eGFR Collection Time: 10/17/23 1:27 PM Result Value Ref Range eGFR 5 mL/min/1.73 m2 POCT glucose Collection Time: 10/17/23 2:34 PM Result Value Ref Range Glucose, POC 102 70 - 140 mg/dL Prepare RBC: 1 Units Collection Time: 10/17/23 3:32 PM Result Value Ref Range Product code [id number] Unit Number [id number] Product Blood Type APOS Dispense Status CROSSMATCHED Prepare plasma: 1 Units Standard plasma Collection Time: 10/17/23 3:32 PM Result Value Ref Range Product code [id number] Unit Number [id number] Product Blood Type APOS Dispense Status ISSUED POCT glucose Collection Time: 10/17/23 3:51 PM Result Value Ref Range Glucose, POC 98 70 - 140 mg/dL RADIOLOGY: XR Chest 1 View - Portable Result Date: 10/17/2023 Narrative: EXAMINATION: 1 view chest radiograph Impression: Comparison is made to two-view chest radiograph dated 10/16/2023. Endotracheal tube projects approximately 4.5 cm above the boni. Interval postoperative changes of median sternotomy with sternal wires, sternal plating, for aortic valve replacement. Right internal jugular central venous catheter overlies the superior vena cava. Lincoln-Daniel catheter tip projects over the main pulmonary artery. Left thoracostomy tube and mediastinal drain. Gastric tube courses caudally beneath left hemidiaphragm out of the [id number]. Lung volumes are small with minimal bibasilar atelectasis, leftgreater than right. Possible trace left pleural effusion. No pneumothorax. Electronically signed by: Tania Malone M.D. US Carotids Result Date: 10/17/2023 Narrative: DATE:10/17/2023 4:30 AM EXAM: Duplex imaging of the carotid arteries. INDICATION: Pre-op eval. COMPARISON STUDY DATE: None available IMAGE QUALITY: Good FINDINGS: RIGHT SIDE: B/P: Not recorded Right: B-mode imaging demonstrates complex plaque morphology in the right common carotid artery.The right common carotid artery peak systolic velocity is 78.8 cm/sec. B-mode imaging demonstrates complex plaque morphology in the right internal carotid artery. The right internal carotid artery peak systolic velocity is 78.6 cm/ sec. The end diastolic velocity is 15.6 cm/s. The right internal carotid artery to common carotid artery ratio is 1.0. The right external carotid artery peak systolic v elocity is 124 cm/sec. The right vertebral artery demonstrates antegrade flow. Incidental findings:None. LEFT SIDE: B/P: Not recorded Left: B-mode imaging demonstrates complex plaque morphology in the left common carotid artery. The left common carotid artery peak systolic velocity is 83.6 cm/sec.B-mode imaging demonstrates complex plaque morphology in the left internal carotid artery. The leftinternal carotid artery peak systolic velocity is 66.8 cm/ sec. The end diastolic velocity is 11.6 cm/s. The left internal carotid artery to common carotid artery ratio is 0.8. The left external carotid artery peak systolic velocity is 129.9 cm/sec. The left vertebral artery demonstrates antegrade flow. Incidental findings:None. Impression: 1) Plaquing of the right internal carotid artery that is consistent with a less than 50% stenosis by duplex criteria 2) Plaquing of the left internal carotid artery that is consistent with a less than 50% stenosis by duplex criteria 3) Vertebral arteries demonstrate antegrade flow on the right, and antegrade flow on the left. 4) No comparison available. The estimated degree of stenosis of the internal carotid arteries reported on this examination is based on the diagnostic criteria proposed by the Society of Radiologists in Ultrasound (SRU) Consensus Conference. Electronically signed by: Ana Pastor MD LEIA Result Date: 10/17/2023 Narrative: Ayden Alan MD 10/17/2023 9:39 AM LEIA Date/time: 10/17/2023 9:31 AM Staff: Supervising anesthesiologist: Ayden Alan MD Performed by: Anesthesiologist: Ayden Alan MD 1st AUTHOR'S AGENT: Ravi Thacker CRNA Preprocedure checklist: patient identified, procedure contraindications assessed, procedure consent, risks, benefits and alternatives discussed, monitors and equipment checked, timeout performed and LEIA probe inserted into esophagus using lubricating jelly Generalprocedure Information: Reason for procedure/indications: assessment of surgical repair Performed: personally Procedure performed at surgeon's request: yes Results discussed with surgeon: yes Images submitted to archive: yes Patient location: OR Intubated: yes Bite blocked placed: yes Probe Insertion: easy Complications: no Probe type: adult Modalities: 2D imaging, 3D imaging, continuous wave Doppler, pulsed wave Doppler and color Doppler Billing information: Physician requesting echo: Jaqueline Valero MD CPT code: LEIA placement and diagnostic exam, non-congenital (97976) ICD code(s) for medical necessity: I35.2 - Nonrheumatic aortic (valve) stenosis with insufficiency: I25.110. Echocardiographic and doppler measurements: Ventricles: Left ventricle: Cavity size: normal Hypertrophy: No Thrombus: No Global function: severely decreased LVEF%: 20-30 Right ventricle: Cavity size: normal Hypertrophy: no Thrombus: No Global function: moderately decreased RVEF%: 30-40 Interventricular septum: normal Regional function: 1- Basal anteroseptal: hypokinetic 2- Basal anterior: hypokinetic 3- Basal anterolateral: hypokinetic 4- Basal inferolateral: hypokinetic 5- Basal inferior: hypokinetic 6- Basal inferoseptal: hypokinetic 7- Mid anteroseptal: hypokinetic 8- Mid anterior: hypokinetic 9- Mid anterolateral: hypokinetic 10- Mid inferolateral: hypokinetic 11- Mid inferior: hypokinetic 12- Mid inferoseptal: hypokinetic 13- Apical anterior: hypokinetic 14- Apical lateral: hypokinetic 15- Apical inferior: hypokinetic 16- Apical septal: hypokinetic 17- Dante: hypokinetic Valves: Aortic Valve: Annulus: calcified Leaflet morphology: calcified and thickened Leaflet motion: restricted (Right cusp is fixed) Stenosis: severe Regurgitation: mild (central jet originating from central coaptation point) Mitral valve: Annulus: normal Leaflet morphology anterior: normal Leaflet morphology posterior: normal Leaflet motion anterior: normal Leaflet motion posterior: normal Stenosis: none Regurgitation: mild (most likely ischemic in nature) Tricuspid valve: Annulus: normal Leaflet morphology: normal Leaflet motion: normal Stenosis: none Regurgitation: mild Pulmonic valve: Annulus: normal Stenosis: none Regurgitation: trace (Lincoln -Daniel is transvalvular) Aorta: Ascending aorta: Size: normal Dissection: no Plaque thickness(mm): 0-3 Plaque mobile: no Aortic arch: Size: normal Dissection: no Plaque thickness(mm): 0-3 Plaque mobile: no Descending aorta: Size: normal Dissection: no Plaque thickness(mm): 0-3 Plaque mobile: no Atria: Right atrium: Size: normal Spontaneous echo contrast: No Thrombus: no Mass: No Left atrium: Size: normal (normal) Spontaneous echo contrast: No Thrombus: no Mass: No Left atrial appendage: normal Interatrial septum: normal Diastolic function and other findings: Diastolic function: abnormal Pericardium: normal Left pleural effusion: small effusion Right pleural effusion: small effusion Pulmonary venous flow: (Abnormal) Attestation Statement: By signing this report the attending anesthesiologist certifies that he or she has personally reviewed and interpretedthe echocardiogram and has reviewed and or edited and agrees with the written comments contained within the report. ECG 12 lead Result Date: 10/16/2023 Narrative: Vent Rate: 61 bpm RR Interval: 981 msec GA Interval: 235 msec QRS Duration: 150 msec QT Interval: 447 msec QTC Interval: 449 msec P-R-T [place]: 70 - -11 - 134 degrees IMPRESSION: SINUS RHYTHM WITH FIRST DEGREE AV BLOCK LEFT BUNDLE BRANCH BLOCK ABNORMAL ECG Electronically Signed By: Payam White MD Transthoracic Echo (TTE) Complete W Doppler/CF Result Date: 10/16/2023 Narrative: [place] [id number] [place] [address] ECHOCARDIOGRAM Patient Name: JUVENAL GARVIN C : 1970 Study Date: 10/16/2023 11:39:54 AM Gender: M Tech: Location: [address] Ref Provider: GUERLINE RODRIGUEZ Height(Cm): 178 BSA: 2.5 Weight(Kg): 126.1 BP: 125/75 Order Provider: GUERLINE RODRIGUEZ - PROCEDURES: Echocardiographic Report: Transthoracic Echocardiogram with 2D, M-Mode, Spectral and Color Flow Doppler examination and administration of intravenous contrast. INDICATIONS: Coronary artery disease, [place] vessel. Measurements: 2D/M Mode Doppler Measurement Value Normal Range Measurement Value Normal Range LVPWd 2D 1 .43 [ 0.60 - 1.00 ] cm AV Peak Robe 2.9 [ 1.0 - 1.7 ] m/s LA Dimension 2D 4.47 [ 3.00 - 4.00 ] cm AVPeak PG 33 mmHg AoR Diam 2D 3.45 [ 3.10 - 3.70 ] cm AV Mean PG 19 mmHg TAPSE 1.93 [ >= 1.71 ] cm AV VTI 64.2 cm LARA V max 1.3 cm2 LARA VTI 1.4 cm2 LVOT Peak Robe 0.99 [ 0.70 - 1.10 ] m/s LVOT Diam2.2 cm LVOT Peak PG 4 mmHg LVOT VTI 23.0 cm MV Peak PG 8 mmHg MV Mean PG 2 mmHg MV E Peak Robe 1.4 [ 0.6 - 1.3 ] m/s MV A Peak Robe 0.4 [ 1.0 - 1.2 ] m/s MV PHT 78.0 [ 20.0 - 100.0 ] ms MV Decel Aota747.4 [ 104.0 - 258.0 ] ms MVA [...] study. Contrast was employed for LV opacification andendocardial border enhancement. BP: Blood pressure: 125/75 mmHg. [...] visualized. IVC: Size and compressability data are discordantsuggesting intermediate right atrial pressures. CONCLUSIONS: 1. Severe left ventricular systolic dysfunction. There is global hypokinesis. More focal hypokinesis of the apex Ejection Fraction is measured at (Simpsons) 30 %. 2. Normal appearance of the mitral valve leaflets. Mild mitral valve regurgitation. 3. Aortic cusps appear moderately calcified. Moderate to severe aortic stenosis. 4. Normal appearance of the tricuspid leaflets. Mild tricuspid regurgitation. Electronically Signed By: Dimitrios Ames MD, [facility] 2023-10-16 17:01:58 BUILDING ADMIN XR Chest PA Lateral 2 View Result Date: 10/16/2023 Narrative: EXAMINATION: XR CHEST PA LATERAL 2 VIEWS COMPARISON: 10/15/2023 Impression: Small bilateral pleural effusions with mild bibasilar atelectasis. Small volume fluid tracks into the right minor fissure. Mild pulmonary edema. No pneumothorax. Heart size and mediastinal contours are unchanged. Electronically signed by: Salina Garnica M.D. CT Chest WO Contrast Result Date: 10/15/2023 Narrative: EXAMINATION: Computed tomography of the chest without intravenous contrast HISTORY: Coronary artery disease, aortic stenosis, preoperative evaluation. TECHNIQUE: Transaxial computed tomographic images of the chest were obtained without intravenous contrast according to the standard protocol. COMPARISON: 06/20/2022 FINDINGS: Small bilateral pleural effusions with mild bibasilar atelectasis. No suspicious pulmonary nodules. No pneumothorax. Central airways are patent. Cardiomegaly withno pericardial effusion. Thoracic aorta is normal in caliber. There are mildly enlarged retrotracheal and right lower paratracheal and paraesophageal lymph nodes. Pre-sternotomy measurements: Left brachiocephalic vein is 29 mm posterior to the manubrium. Ascending aorta is 51 mm posterior to the proximal sternum. Right ventricular outflow tract is 7 mm posterior to the distal sternum. Noncontrastimaged upper abdominal viscera show small volume ascites, atrophic kidneys and cholelithiasis. No suspicious osseous lesions. Impression: 1. Small bilateral pleural effusions with mild bibasilar atelectasis. 2. Mildly enlarged likely reactive mediastinal lymph nodes. Attention on follow-up is recommended. Electronically signed by: Arjun Amador M.D. EKG: Results for orders placed during the hospital encounter of 10/13/23 ECG 12 lead Narrative Vent Rate: 61 bpm RR Interval: 981 msec GA Interval: 235 msec QRS Duration: 150 msec QT Interval: 447 msec QTC Interval: 449 msec P-R-T [place]: 70 - -11 - 134 degrees IMPRESSION: SINUS RHYTHM WITH FIRST DEGREE AV BLOCK LEFT BUNDLE BRANCH BLOCK ABNORMAL ECG Electronically Signed By: Payam White MD ASSESSMENT/PLAN: 1. CAD: The patient underwent cardiac catheterization that showed multivessel disease. His echo also showed that LVEF has dropped to 20-25% (65% in 05/2022). The patient is chest pain free. S/P AVR and CABG x 3 . Is bleeding post op and blood products arwe being replaced 2. : The patient was noted to have moderate on his echo. 3. Hypertension: Blood pressure is controlled. 4. Dyslipidemia: Continue on high-intensity statin. 5. Diabetes: Type 1 diabetic on insulin. Management per primary team. 6. ESRD: On peritoneal dialysis with management per Nephrology. 7. Paroxysmal Atrial Fibrillation: Occurred in 06/2022 during a hospital admission. He was on Apixaban which was stopped and is presently on Heparin as noted above. 8. DVT: Hx of RLE 2017. He was on Apixaban which was stopped and is presently on Heparin as noted above. Dilip Cohen MD [facility] 10/17/2023 4:24 PM DING ADMIN * Carly Spencer RD - 10/16/2023 5:26 PM CST Initial Nutrition Assessment Reason for Assessment: Initial Nutrition Assessment Encounter Date: 10/16/23 5:26 PM Nutrition Evaluation: Patient is a 53 y.o. male. Admit Dx: CAD in [place] artery [I25.10]. Admitted on 10/13/2023, current LOS is 3 days. Pt's PMH includes Type I DM, ESRD on HD. Pt reports he sees the RD regularly at the dialysis center. Discussed with pt the importance of protein intake for wound healing post-op. Pt NPOpast midnight for planned CABG 10/17/23. Will follow regarding nutritional needs. Objective Past Medical History: Diagnosis Date CAD (coronary artery disease) Chest pain Diabetes mellitus (HCC) Diabetes mellitus type I (HCC) Dialysis patient (CMS/HCC) (HCC) ESRD on dialysis (CMS/HCC) (HCC) GERD (gastroesophageal reflux disease) Hyperlipidemia Hypertension Sleep apnea SOB (shortness of breath) Past Surgical History: Procedure Laterality Date APPENDECTOMY Appendectomy APPENDECTOMY CENTRAL LINE PLACEMENT > 5 YEARS N/A 06/18/2022 CORONARY ANGIOPLASTY WITH STENT PLACEMENT FEMUR SURGERY KNEE SURGERY knee surgery OPEN REDUCTION INTERNAL FIXATION ORIF OTHER SURGICAL HISTORY eye surg-vitrectomy Anthropometrics Weight: 126.2 kg (278 lb 3.5 oz) Admission Weight : 123.1 kg Weight Change: 1.70 kg (3.74 lbs) IBW/kg (Calculated) : 75.3 kg Height: 177.8 cm (5' 10 ) Weight in (lb) to have BMI = 25: 173.9 BMI (Calculated): 39.9 Intake/Output Summary (Last 24 hours) at 10/16/2023 1726 Last data filed at 10/16/2023 1425 Gross per 24 hour Intake 4240 ml Output 2142 ml Net 2098 ml Medications and Lab Review: Scheduled Meds: aspirin, 81 mg, oral, Daily atorvastatin, 80 mg, oral, Daily bisacodyL, 10 mg, rectal, Once calcitRIOL, 0.25 mcg, oral, Daily calcium acetate(phosphat bind), 667 mg, oral, TID with meals [Held by Provider] colchicine, 0.6 mg, oral, Once per day on Monday ergocalciferol, 50,000 Units, oral, Weekly ezetimibe, 10 mg, oral, Daily famotidine, 20 mg, oral, Nightly gemfibroziL, 600 mg, oral, BID AC (bkfst, lunch) gentamicin, , topical, Daily insulin glargine, 15 Units, subcutaneous, Nightly insulin glargine, 20 Units, subcutaneous, QAM insulin lispro, 0-10 Units, subcutaneous, TID with meals insulin lispro, 10 Units, subcutaneous, TID with meals isosorbide mononitrate ER, 60 mg, oral, Daily metoprolol, 25 mg, oral, Q12H NIFEdipine, 90 mg, oral, Daily pantoprazole DR, 40 mg, oral, Daily ranolazine ER, 500 mg, oral, BID sodium chloride 0.9%, 0.5-20 mL, intra-catheter, Q8H ASHLEY torsemide, 100 mg, oral, Daily Continuous Infusions: Dianeal low calcium-dextrose 2.5 % 6,000 mL dialysis solution, Dianeal low calcium-dextrose 2.5 % 6,000 mL dialysis solution, heparin, 0-33 Units/kg/hr, Last Rate: 12.1 Units/kg/hr (10/16/23 1102) [START ON 10/17/2023] sodium chloride 0.9%, 50 mL/hr sodium chloride 0.9%, 10 mL/hr PRN Meds: acetaminophen ALPRAZolam bisacodyL sodium chloride 0.9% dextrose OR dextrose glucagon heparin OR heparin ondansetron ODT OR ondansetron polyethylene glycol ramelteon sodium chloride 0.9% sodium chloride 0.9% Sodium Date Value Ref Range Status 10/15/2023 130 (L) 135 - 145 mmol/L Final Potassium, pl Date Value Ref Range Status 10/15/2023 4.3 3.3 - 4.9 mmol/L Final BUN Date Value Ref Range Status 10/15/2023 78 (H) 6 - 25 mg/dL Final Creatinine Date Value Ref Range Status 10/15/2023 10.57 (H) 0.80 - 1.30 mg/dL Final Phosphorus, pl Date Value Ref Range Status 10/15/2023 5.7 (H) 2.3 - 4.5 mg/dL Final Albumin Date Value Ref Range Status 10/15/2023 3.3 (L) 3.5 - 5.0 g/dL Final Calcium Date Value Ref Range Status 10/15/2023 8.2 (L) 8.5 - 10.3 mg/dL Final HDL Date Value Ref Range Status 10/16/2023 34 (L) >=40 mg/dL Final Comment: Interpretive Data Ages < or = 19 years Acceptable: >45 mg/dL Borderline low: 40-45 mg/dL Low: <40 mg/dL Ages > or = 20 years Desirable: >or= 60 mg/dL Low: <40 mg/dL Literature References: 1. Expert Panel on Integrated Guidelines for Cardiovascular Health and Risk Reduction in Children and Adolescents. Pediatrics 2011;128:S213 2. NCEP Expert Panel. Circulation 2004;110:227 Current Interpretive Data was last revised on 2018. ALT Date Value Ref Range Status 10/14/2023 21 7 - 55 Units/L Final AST Date Value Ref Range Status 10/14/2023 28 10 - 50 Units/L Final Alk phos Date Value Ref Range Status 10/14/2023 98 40 - 130 Units/L Final Lab Results Component Value Date HGBA1C 8.1 (H) 10/16/2023 Nursing Assessment: Last BM Date: (pt unsure) Bowel Sounds (All Quadrants): Present Rex Scale Score: 19 Skin Integrity: Puncture Dietary Orders (From admission, onward) Start Ordered 10/17/23 0001 NPO Diet Diet effective midnight Comments: For surgery 10/17/23 10/16/23 1404 10/14/23 2100 Bedtime snack At bedtime Comments: If bedtime BG is less than 100mg/dl, give patient a 15 gram carbohydrate snack. 10/14/23 0054 10/14/23 0841 Adult Diet Restricted; Consistent Carbohydrate Diet effective now Question Answer Comment ([facility]) Diet type Restricted Diabetic: Consistent Carbohydrate 10/14/23 0841 Nutrition Needs Calculations: Calculated Energy Needs Using Equations Weight: 126.2 kg (278 lb 3.5 oz) Height: 177.8 cm (5' 10 ) Estimated Protein Needs Type of Weight Used for Estimated Protein : [place] Protein Needs Based on g/k.4 Total Protein Estimated Needs (gm): 105.42 Kcal/kg Type of Weight Used for Estimated Kcals: [place] Kcal/k Total Kcal/kg Estimated Needs : 2259 Nutritional Needs and Diagnosis: Nutrition Diagnosis 1: Increased nutrient needs (protein) Related to: (CABG scheduled for 10/17/23) Intervention and Monitoring: Goals: Adequate nutrition to meet estimated needs by next assessment Interventions: Medical food supplement, Encouragement Monitoring and Evaluation: Plan of care, Labs, PO intake Carly Spencer RD,LD DING ADMIN * Chula Valera PA - 10/16/2023 3:25 PM CST Images from the original note were not included. Nephrology Juvenal Garvin Jr. - 1970 Primary : Aditya Correa MD History and interval events: 53-year-old gentleman with history of type 1 diabetes mellitus on insulin pump, CHF, CAD, ESRD on peritoneal dialysis initially presented to [facility] on October 09 for symptoms of general malaise for the past 4 days prior to admission. Patient was having symptoms of nausea with dry heaves. He presented hemodynamically stable. His glucose was measured to be 584, beta hydroxybutyrate 2.9 with an anion gap of 19. Patient was transferred to the ICU for insulin dripand DKA management. During this hospitalization his troponin was measured to be elevated prompting a cardiology consultation which lead to a C. Results were notable for severe CAD and he was recommended to seek surgical revascularization evaluation prompting transfer to this facility. He missed his peritoneal dialysis last evening during transfer. He has been on peritoneal dialysis for approximately 2 years and tolerating this well under the care of Dr. Reyes. He does make some urine. Tolerated PD well overnight -initial drain volume 1251 mls, total UF 891 mls. Planned for surgery gail Medication: Current medication list reviewed Intake and Output Summary: Intake/Output Summary (Last 24 hours) at 10/16/2023 1525 Last data filed at 10/16/2023 1425 Gross per 24 hour Intake 4240 ml Output 2142 ml Net 2098 ml Vital Signs: Vitals: 10/16/23 1324 BP: 137/65 Pulse: 68 Resp: Temp: 36.4 ??C (97.6 ??F) SpO2: 94% Physical Exam: General Youngish man sitting up in bed no acute distress H&N No visible JVD Eyes Pupils symmetrical with no scleral icterus Chest Bibasilar inspiratory crackles Heart S1-S2 regular Abdomen Soft and non tender PD catheter in situ Extremeties Pitting lower extremity edema Skin No rash Neuro Nonfocal Mental status Alert and conversant CBC: Recent Labs Lab Units 10/16/23 0031 10/15/23 0106 10/14/23 0104 WBC K/cumm 7.7 7.6 6.2 HEMOGLOBIN g/dL 9.4* 9.4* 9.4* HEMATOCRIT % 29.7* 29.4* 29.0* PLATELETS K/cumm 330 375 357 RFP: Recent Labs Lab Units 10/15/23 0106 10/14/23 0553 10/14/23 0104 SODIUM mmol/L 130* 131* 130* POTASSIUM PLASMA mmol/L 4.3 4.3 4.3 CHLORIDE mmol/L 89* 92* 90* CO2 mmol/L 22 23 21* BUN SERUM mg/dL 78* 75* 66* CREATININE mg/dL 10.57* 10.22* 10.57* CALCIUM mg/dL 8.2* 9.0 9.2 PHOSPHORUS PLASMA mg/dL 5.7* -- -- ALBUMIN g/dL 3.3* -- 3.4* Impression and Recommendations: 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 - [address] [place] [address] [phone] - Office [phone] - Fax DING ADMIN * Nona Alcala PA - 10/16/2023 2:25 PM CST Cardiothoracic Surgery Daily Progress SUBJECTIVE Chief Complaint: multivessel coronary artery, moderate aortic stenosis Interval History: Patient doing well today, no new issues, no chest pain or shortness of breath. Remains on heparin infusion. OBJECTIVE Vitals: Most Recent: Vitals: 10/16/23 1324 BP: 137/65 Pulse: 68 Resp: Temp: 36.4 ??C (97.6 ??F) SpO2: 94% 24hr Min/Max: Temp Min: 36.3 ??C (97.4 ??F) Max: 36.6 ??C (97.8 ??F) Pulse Min: 55 Max: 68 BP Min: 111/65 Max: 137/65 Resp Min: 14 Max: 18 SpO2 Min: 90 % Max: 95 % Cardiac Rhythm: sinus I/O: Date 10/15/23 07 - 10/16/23 0659 10/16/23699 - 10/17/23 0659 Shift [id number] 24 Hour Total [id number] 0534-4900 24 Hour Total INTAKE P.O. 300 300 200 200 Other 3500 3500 Shift Total(mL/kg) 300(2.4) 3500(28.1) 3800(30.5) 200(1.6) 200(1.6) OUTPUT Other 2141 2141 Shift Total(mL/kg) 2141(17) 214(17) NET 300 3500 380 -1941 -1941 Weight (kg) 124.5 124.5 124.5 126.2 126.2 126.2 Physical Exam: General: A&O, resting in bed, nad Pulm: nml resp pattern, room air Card: sinus rhythm Lab Review: Recent Labs Lab Units 10/16/23 0031 WBC K/cumm 7.7 HEMOGLOBIN g/dL 9.4* HEMATOCRIT % 29.7* PLATELETS K/cumm 330 Recent Labs Lab Units 10/16/23 1222 10/15/23 0130 10/15/23 0106 SODIUM mmol/L -- -- 130* POTASSIUM PLASMA mmol/L -- -- 4.3 CHLORIDE mmol/L -- -- 89* CO2 mmol/L -- -- 22 ANIONGAP mmol/L -- -- 19* BUN SERUM mg/dL -- -- 78* CREATININE mg/dL -- -- 10.57* GLUCOSE mg/dL -- -- 308* POC GLUCOSE MONITOR mg/dL 74 < > -- CALCIUM mg/dL -- -- 8.2* < > = values in this interval not displayed. Recent Labs Lab Units 10/16/23 0031 10/14/23 0553 10/14/23 0104 APTT sec 80* < > 68* INR -- -- 1.18 < > = values in this interval not displayed. Radiology/Diagnostic Review: Scheduled Medications: aspirin, 81 mg, oral, Daily atorvastatin, 80 mg, oral, Daily bisacodyL, 10 mg, rectal, Once calcitRIOL, 0.25 mcg, oral, Daily [Held by Provider] colchicine, 0.6 mg, oral, Once per day on Monday ergocalciferol, 50,000 Units, oral, Weekly ezetimibe, 10 mg, oral, Daily famotidine, 20 mg, oral, Nightly gemfibroziL, 600 mg, oral, BID AC (bkfst, lunch) gentamicin, , topical, Daily insulin glargine, 15 Units, subcutaneous, Nightly insulin glargine, 20 Units, subcutaneous, QAM insulin lispro, 0-10 Units, subcutaneous, TID with meals insulin lispro, 12 Units, subcutaneous, TID with meals isosorbide mononitrate ER, 60 mg, oral, Daily metoprolol, 25 mg, oral, Q12H NIFEdipine, 90 mg, oral, Daily pantoprazole DR, 40 mg, oral, Daily ranolazine ER, 500 mg, oral, BID sodium chloride 0.9%, 0.5-20 mL, intra-catheter, Q8H ASHLEY torsemide, 100 mg, oral, Daily ASSESSMENT - coronary artery disease with prior SC and multiple prior stents - severe aortic stenosis - HFrEF, 25-30% - paroxsymal Afib - DMT1 with DKA upon admission - HTN - HLD - ESRD on PD - BEN - GERD - DVT on chronic anticoagulation PLAN - echo and carotid ultrasounds today. - continue heparin infusion - Asa 81 mg daily - lipitor, zetia, and gemfibrozil for HLD - metoprolol, imdur, and Nifedipine for BP. Cards following - PD and diuresis per renal recommendations - diabetes management per hospitalists. Check A1c - Plan for OR tomorrow for CABG and AVR Discussed with LESLY Vallecillo 10/16/2023 DING ADMIN * Emiliana Dickson NP - 10/16/2023 11:13 AM CST Daily Progress SUBJECTIVE: Mr. Garvin sitting up in the chair. NAD. Denies chest pain, sob, palpitations, dizziness. Remainson heparin gtt. OBJECTIVE: Vitals: 10/16/23 0400 10/16/23 0706 10/16/23 0845 10/16/23 0900 BP: 125/75 BP Location: Left arm Patient Position: Pulse: 56 59 63 Resp: 18 18 Temp: 36.5 ??C (97.7 ??F) 36.4 ??C (97.5 ??F) TempSrc: Oral Oral SpO2: 92% Weight: 126.2 kg (278 lb 3.5 oz) Height: Intake/Output Summary (Last 24 hours) at 10/16/2023 1113 Last data filed at 10/16/2023 0940 Gross per 24 hour Intake 4000 ml Output 2142 ml Net 1858 ml Scheduled Medications Medication Dose Route Frequency aspirin enteric coated tablet 81 mg 81 mg oral Daily atorvastatin (LIPITOR) tablet 80 mg 80 mg oral Daily calcitRIOL (ROCALTROL) capsule 0.25 mcg 0.25 mcg oral Daily colchicine (COLCRYS) tablet 0.6 mg 0.6 mg oral Once per day on Monday ergocalciferol (VITAMIN D) capsule 50,000 Units 50,000 Units oral Weekly ezetimibe (ZETIA) tablet 10 mg 10 mg oral Daily famotidine (PEPCID) tablet 20 mg 20 mg oral Nightly gemfibroziL (LOPID) tablet 600 mg 600 mg oral BID AC (bkfst, lunch) gentamicin (GARAMYCIN) 0.1 % cream topical Daily insulin glargine (LANTUS, SEMGLEE) 100 unit/mL injection 15 Units 15 Units subcutaneous Nightly insulin glargine (LANTUS, SEMGLEE) 100 unit/mL injection 20 Units 20 Units subcutaneous QAM insulin lispro (HumaLOG, ADMELOG) 100 unit/mL injection 0-10 Units 0-10 Units subcutaneous TID withmeals insulin lispro (HumaLOG, ADMELOG) 100 unit/mL injection 12 Units 12 Units subcutaneous TID with meals isosorbide mononitrate ER (IMDUR) extended release tablet 60 mg 60 mg oral Daily metoprolol tartrate (LOPRESSOR) immediate release tablet 25 mg 25 mg oral Q12H NIFEdipine (PROCARDIA XL/ADALAT CC) extended release tablet 90 mg 90 [address] Daily [address] (PROTONIX) extended release tablet 40 mg 40 mg oral Daily ranolazine ER (RANEXA) extended release tablet 500 mg 500 mg oral BID sodium chloride 0.9% flush 0.5-20 mL 0.5-20 mL intra-catheter Q8H ASHLEY torsemide (DEMADEX) tablet 100 mg 100 mg oral Daily LABS: Recent Labs Lab Units 10/16/23 0031 WBC K/cumm 7.7 HEMOGLOBIN g/dL 9.4* HEMATOCRIT % 29.7* PLATELETS K/cumm 330 Recent Labs Lab Units 10/16/23 0811 10/15/23 0130 10/15/23 0106 10/14/23 0205 10/14/23 0104 SODIUM mmol/L -- -- 130* < > 130* POTASSIUM PLASMA mmol/L -- -- 4.3 < > 4.3 CHLORIDE mmol/L -- -- 89* < > 90* CO2 mmol/L -- -- 22 < > 21* ANIONGAP mmol/L -- -- 19* < > 19* GLUCOSE mg/dL -- -- 308* < > 453* POC GLUCOSE MONITOR mg/dL 266* < > -- < > -- BUN SERUM mg/dL -- -- 78* < > 66* CREATININE mg/dL -- -- 10.57* < > 10.57* CALCIUM mg/dL -- -- 8.2* < > 9.2 ALBUMIN g/dL -- -- 3.3* -- 3.4* ALK PHOS Units/L -- -- -- -- 98 ALT Units/L -- -- -- -- 21 AST Units/L -- -- -- -- 28 BILIRUBIN TOTAL mg/dL -- -- -- -- 0.3 < > = values in this interval not displayed. Lab Results Component Value Date BNP 113 (H) 03/21/2017 BNP 13 11/05/2013 Lab Results Component Value Date TROPONINI 0.03 03/21/2017 TROPONINI 0.03 03/21/2017 TROPONINI <0.03 11/06/2013 Exam General: in no apparent distress Neuro: Alert and oriented x 3, moves all extremities well Head: Normocephalic, atraumatic Eyes: Sclera anicteric Neck: There are no carotid bruits. I do not appreciate JVD Lungs: Symmetric, unlabored, clear to auscultation bilaterally Heart: S1,S2, regular rate & rhythm, no murmurs, rubs, or gallops Abdomen: Soft, non-tender, non-distended, bowel sounds present Extremities: No LE edema, palpable peripheral pulses BL Neurologic: No focal deficits Psych: Mood and affect appropriate -Cardiac Cath (10/13/23 at [facility]): LM no dz. LCX 99% ostial stenosis and 90% stenosis atOM/LCX bifurcation. LAD mild diffuse disease in the ostium with a 90% stenosis at the origin of a very small high diagonal branch and otherwise mild LAD disease. RCA 99% mid stenosis. -Echo (10/11/23 at [facility]): LVEF 20-25%, moderate ASSESSMENT/PLAN: 1. CAD: The patient underwent cardiac catheterization that showed multivessel disease. His echo also showed that LVEF has dropped to 20-25% (65% in 05/2022). The patient is chest pain free. He is on a Heparin gtt along with Aspirin, statin, B-umair, CCB and Imdur. CTS consulted with tentative plan for CABG on 10/17. 2. : The patient was noted to have moderate on his echo. Tentative plan for AVR on 10/17 at time of CABG 3. Hypertension: Blood pressure is controlled. 4. Dyslipidemia: Continue on high-intensity statin. 5. Diabetes: Type 1 diabetic on insulin. Management per primary team. 6. ESRD: On peritoneal dialysis with management per Nephrology. 7. Paroxysmal Atrial Fibrillation: Occurred in 06/2022 during a hospital admission. He was on Apixaban which was stopped and is presently on Heparin as noted above. 8. DVT: Hx of RLE 2017. He was on Apixaban which was stopped and is presently on Heparin as noted above. Emiliana Dickson NP [facility] 10/16/2023 11:13 AM Cosigned by Kota Stover MD at 10/16/2023 2:15 PM BUILDING ADMIN DING ADMIN DING ADMIN * Frank Cody MD - 10/16/2023 9:34 AM CST [facility] Hospitalist Service Progress Note Chief complaint (on admission): Weakness Subjective: Pt had no significant events overnight. Yesterday, he was mildly hypoglycemic in the afternoon. This morning, he remains alert, comfortable, tolerating diet, BG now 300's again. He denies new problems. Objective: Vitals and I/O Temp Min: 36.3 ??C (97.4 ??F) Max: 36.8 ??C (98.2 ??F) Pulse Min: 54 Max: 59 BP Min: 111/65 Max: 125/75 Resp Min: 14 Max: 18 SpO2 Min: 90 % Max: 95 % I/O last 2 completed shifts: In: 3800 [P.O.:300; Other:3500] Out: - Body mass index is 39.38 kg/m??. Physical Exam: General Appearance: Comfortable, cooperative Head: Normocephalic, atraumatic Lungs: Normal respiratory effort Cardiovascular: Regular rate Abdomen: Soft, nondistended +PD catheter Extremities: Trace edema Skin: No new rashes, lesions or bruising Neurologic: Alert, oriented Psychosocial: Normal affect and mood Lab/Radiology/Diagnostic Review: Recent Labs Lab Units 10/16/23 0031 10/15/23 0106 10/14/23 0104 WBC K/cumm 7.7 7.6 6.2 HEMOGLOBIN g/dL 9.4* 9.4* 9.4* HEMATOCRIT % 29.7* 29.4* 29.0* Recent Labs Lab Units 10/16/23 0811 10/15/23 0130 10/15/23 0106 10/14/23 0205 10/14/23 0104 SODIUM mmol/L -- -- 130* < > 130* POTASSIUM PLASMA mmol/L -- -- 4.3 < > 4.3 CHLORIDE mmol/L -- -- 89* < > 90* CO2 mmol/L -- -- 22 < > 21* GLUCOSE mg/dL -- -- 308* < > 453* POC GLUCOSE MONITOR mg/dL 266* < > -- < > -- BUN SERUM mg/dL -- -- 78* < > 66* CREATININE mg/dL -- -- 10.57* < > 10.57* CALCIUM mg/dL -- -- 8.2* < > 9.2 ALBUMIN g/dL -- -- 3.3* -- 3.4* ALK PHOS Units/L -- -- -- -- 98 ALT Units/L -- -- -- -- 21 AST Units/L -- -- -- -- 28 BILIRUBIN TOTAL mg/dL -- -- -- -- 0.3 < > = values in this interval not displayed. Recent Labs Lab Units 10/16/23 0031 10/14/23 0553 10/14/23 0104 APTT sec 80* < > 68* INR -- -- 1.18 < > = values in this interval not displayed. Assessment/Plan: Principal Problem: CAD in [place] artery # CAD with NSTEMI, aortic stenosis, paroxysmal afib Cath at [facility] showed multivessel disease, and Echo showed EF 25%, severe aortic stenosis. Transferred to [facility] for possible surgery. - possible CABG and AVR on Tuesday 10/17, not yet scheduled - hold Eliquis, continue heparin gtt for now, hold for procedures - continue aspirin, atorvastatin, Zetia, gemfibrozil, Imdur 60, metoprolol 50 BID, Ranolazine 500 BID. Adjustments per Cardiology ([facility]) # T1DM with DKA - RESOLVED Had DKA upon admission, resolved with insulin infusion, now on basal/bolus. Insulin pump is not functioning. Hypoglycemic in the evening after receiving Lantus 30 in the morning - change Lantus to 20 AM and 15 HS, continue prandial Humalog to 12 TID, continue SSI, adjust as needed # ESRD on PD, essential HTN, gout, GERD - continue PD per Dr. Carranza, colchicine, Pepcid, calcitriol, ergocalciferol, nifedipine. # BEN - resume CPAP at night Disposition Planning Full Code Pending cardiac surgery, tentatively planned for 10/17 (to be scheduled) Medical decision-making: moderate complexity Frank Cody MD DING ADMIN * Pradeep Reeves NP - 10/15/2023 11:21 AM CST Cardiology Daily Progress - [facility] SUBJECTIVE: Mr. Garvin is doing well in no acute distress. No acute events noted overnight. Noted CTS plans. Review of Systems: Review of systems per HPI and otherwise all other systems are negative OBJECTIVE: Scheduled Medications Medication Dose Route Frequency aspirin enteric coated tablet 81 mg 81 mg oral Daily atorvastatin (LIPITOR) tablet 80 mg 80 mg oral Daily calcitRIOL (ROCALTROL) capsule 0.25 mcg 0.25 mcg oral Daily [START ON 10/16/2023] colchicine (COLCRYS) tablet 0.6 mg 0.6 mg oral Once per day on Monday ergocalciferol (VITAMIN D) capsule 50,000 Units 50,000 Units oral Weekly ezetimibe (ZETIA) tablet 10 mg 10 mg oral Daily famotidine (PEPCID) tablet 20 mg 20 mg oral Nightly gemfibroziL (LOPID) tablet 600 mg 600 mg oral BID AC (bkfst, lunch) gentamicin (GARAMYCIN) 0.1 % cream topical Daily insulin glargine (LANTUS, SEMGLEE) 100 unit/mL injection 30 Units 30 Units subcutaneous QAM insulin lispro (HumaLOG, ADMELOG) 100 unit/mL injection 0-10 Units 0-10 Units subcutaneous TID withmeals insulin lispro (HumaLOG, ADMELOG) 100 unit/mL injection 12 Units 12 Units subcutaneous TID with meals isosorbide mononitrate ER (IMDUR) extended release tablet 60 mg 60 mg oral Daily metoprolol tartrate (LOPRESSOR) immediate release tablet 50 mg 50 mg oral Q12H NIFEdipine (PROCARDIA XL/ADALAT CC) extended release tablet 90 mg [address] Daily [address] (PROTONIX) extended release tablet 40 mg 40 mg oral Daily ranolazine ER (RANEXA) extended release tablet 500 mg 500 mg oral BID sodium chloride 0.9% flush 0.5-20 mL 0.5-20 mL intra-catheter Q8H ASHLEY torsemide (DEMADEX) tablet 100 mg 100 mg oral Daily Continuous Medications Medication Dose Last Rate Dianeal low calcium-dextrose 2.5 % 6,000 mL dialysis solution Dianeal low calcium-dextrose 2.5 % 6,000 mL dialysis solution Extraneal 7.5% AMBU-FLEX 2,500 mL dialysis solution heparin in 0.45% sodium chloride 25,000 units/250 mL (100 units/mL) infusion (premix) 0-33 Units/kg/hr 12.1 Units/kg/hr (10/14/23 2200) PRN Medications Medication Dose Route Frequency Last Admin acetaminophen (TYLENOL) tablet 650 mg 650 mg oral Q4H PRN ALPRAZolam (XANAX) tablet 1 mg 1 mg oral TID PRN 1 mg at 10/14/232024 bisacodyL (DULCOLAX) suppository 10 mg 10 mg rectal Daily PRN Carrier Fluids for Secondary Infusion - 0.9% Sodium Chloride 30 mL intravenous PRN dextrose (GLUTOSE) 40 % gel 15 g 15 g oral Q15 Min PRN Or dextrose (D10W) 10% bolus 250 mL 250 mL intravenous Q15 Min PRN glucagon injection 1 mg 1 mg intramuscular Q30 Min PRN heparin 5,000 unit/mL injection 2,000 Units 2,000 Units intravenous Q6H PRN Or heparin 5,000 unit/mL injection 3,000 Units 3,000 Units intravenous Q6H PRN 3,000 Units at 459 ondansetron ODT (ZOFRAN-ODT) disintegrating tablet 4 mg 4 mg oral Q6H PRN Or ondansetron (ZOFRAN) injection 4 mg 4 mg intravenous Q6H PRN polyethylene glycol (MIRALAX) packet 17 g 17 g oral Daily PRN 17 g at 10/15/23 0849 ramelteon (ROZEREM) tablet 8 mg 8 mg oral Nightly PRN sodium chloride 0.9% flush 0.5-20 mL 0.5-20 mL intra-catheter PRN Recent Labs Lab Units 10/15/23 0756 10/15/23 0534 10/15/23 0435 10/15/23 0130 10/15/23 0106 10/14/23 0556 10/14/23 0553 10/14/23 0205 10/14/23 0104 SODIUM mmol/L -- -- -- -- 130* -- 131* -- 130* POTASSIUM PLASMA mmol/L -- -- -- -- 4.3 -- 4.3 -- 4.3 CHLORIDE mmol/L -- -- -- -- 89* -- 92* -- 90* CO2 mmol/L -- -- -- -- 22 -- 23 -- 21* ANIONGAP mmol/L -- -- -- -- 19* -- 16* -- 19* GLUCOSE mg/dL -- -- -- -- 308* -- 287* -- 453* POC GLUCOSE MONITOR mg/dL 249* 338* 344* < > -- < > -- < > -- BUN SERUM mg/dL -- -- -- -- 78* -- 75* -- 66* CREATININE mg/dL -- -- -- -- 10.57* -- 10.22* -- 10.57* CALCIUM mg/dL -- -- -- -- 8.2* -- 9.0 -- 9.2 ALBUMIN g/dL -- -- -- -- 3.3* -- -- -- 3.4* ALK PHOS Units/L -- -- -- -- -- -- -- -- 98 ALT Units/L -- -- -- -- -- -- -- -- 21 AST Units/L -- -- -- -- -- -- -- -- 28 BILIRUBIN TOTAL mg/dL -- -- -- -- -- -- -- -- 0.3 < > = values in this interval not displayed. Recent Labs Lab Units 10/15/23 0106 10/14/23 0104 WBC K/cumm 7.6 6.2 HEMOGLOBIN g/dL 9.4* 9.4* HEMATOCRIT % 29.4* 29.0* PLATELETS K/cumm 375 357 Recent Labs Lab Units 10/15/23 0427 10/15/23 0106 10/14/23 2041 10/14/23 0553 10/14/23 0104 PROTIME (PT) sec -- -- -- -- 13.5 INR -- -- -- -- 1.18 APTT sec 75* 69* 75* < > 68* < > = values in this interval not displayed. Intake/Output Summary (Last 24 hours) at 10/15/2023 1121 Last data filed at 10/15/2023 0645 Gross per 24 hour Intake 3685 ml Output 1201 ml Net 2484 ml Wt Readings from Last 3 Encounters: 10/15/23 124.5 kg (274 lb 7.6 oz) 06/29/22 118.1 kg (260 lb 6.4 oz) 01/21/21 132.9 kg (293 lb) Patient Vitals for the past 24 hrs: BP Temp Temp src Pulse Resp SpO2 Weight 10/15/23 0836 -- 36.3 ??C (97.4 ??F) Oral 52 16 -- -- 10/15/23 0811 113/56 -- -- 51 16 94 % 124.5 kg (274 lb 7.6 oz) 10/15/23 0700 -- -- -- (!) 47 -- -- -- 10/15/23 0630 138/85 -- -- (!) 48 -- 94 % -- 10/15/23 0610 148/84 36.3 ??C (97.4 ??F) Axillary 50 20 92 % -- 10/15/23 0130 -- -- -- (!) 47 -- 95 % -- 10/15/23 0055 129/75 36.3 ??C (97.4 ??F) Axillary (!) 48 20 93 % -- 10/14/23 2020 96/65 -- -- 52 -- 95 % -- 10/14/23 1710 100/64 36.6 ??C (97.8 ??F) Oral 54 20 93 % -- 10/14/23 1500 -- -- -- 56 -- -- -- 10/14/23 1459 -- -- -- 56 -- -- -- 10/14/23 1200 114/71 36.5 ??C (97.7 ??F) Oral -- 20 93 % -- Telemetry: sinus rhythm Exam: General: In no apparent distress Neuro: Alert and oriented x 3, moves all extremities well Head: Normocephalic, atraumatic Eyes: Sclera anicteric Neck: There are no carotid bruits. I do not appreciate JVD Lungs: Symmetric, unlabored, clear to auscultation bilaterally Heart: S1,S2, regular rate & rhythm, no murmurs, rubs, or gallops Abdomen: Soft, non-tender, non-distended, bowel sounds present Extremities: No LE edema, palpable peripheral pulses BL Neurologic: No focal deficits Psych: Mood and affect appropriate -Cardiac Cath (10/13/23 at [facility]): LM no dz. LCX 99% ostial stenosis and 90% stenosis atOM/LCX bifurcation. LAD mild diffuse disease in the ostium with a 90% stenosis at the origin of a very small high diagonal branch and otherwise mild LAD disease. RCA 99% mid stenosis. -Echo (10/11/23 at [facility]): LVEF 20-25%, moderate ASSESSMENT/PLAN: 1. CAD: The patient underwent cardiac catheterization that showed multivessel disease. His echo also showed that LVEF has dropped to 20-25% (65% in 05/2022). The patient is chest pain free. He is on a Heparin gtt along with Aspirin, statin, B-umair, CCB and Imdur. CTS consulted with tentative plan for CABG on 10/17. 2. : The patient was noted to have moderate on his echo. Tentative plan for AVR on 10/17 at time of CABG 3. Hypertension: Blood pressure is controlled. 4. Dyslipidemia: Continue on high-intensity statin. 5. Diabetes: Type 1 diabetic on insulin. Management per primary team. 6. ESRD: On peritoneal dialysis with management per Nephrology. 7. Paroxysmal Atrial Fibrillation: Occurred in 06/2022 during a hospital admission. He was on Apixaban which was stopped and is presently on Heparin as noted above. 8. DVT: Hx of RLE 2017. He was on Apixaban which was stopped and is presently on Heparin as noted above. SHAMIKA Donald [facility] 10/15/2023 11:21 AM Cosigned by Felipe Robledo DO at 10/26/2023 9:21 AM BUILDING ADMIN DING ADMIN DING ADMIN * Frank Cody MD - 10/15/2023 10:21 AM CST [facility] Hospitalist Service Progress Note Chief complaint (on admission): Weakness Subjective: Pt had no significant events overnight. This morning, he is alert, comfortable, tolerating diet, had PD last night without problems. Objective: Vitals and I/O Temp Min: 36.3 ??C (97.4 ??F) Max: 36.6 ??C (97.8 ??F) Pulse Min: 47 Max: 56 BP Min: 96/65 Max: 148/84 Resp Min: 16 Max: 20 SpO2 Min: 92 % Max: 95 % I/O last 2 completed shifts: In: 3685 [I.V.:185; Other:3500] Out: 1201 [Other:1201] Body mass index is 39.38 kg/m??. Physical Exam: General Appearance: Comfortable, cooperative Head: Normocephalic, atraumatic Lungs: Normal respiratory effort Cardiovascular: Regular rate Abdomen: Soft, nondistended +PD catheter Extremities: Trace edema Skin: No new rashes, lesions or bruising Neurologic: Alert, oriented Psychosocial: Normal affect and mood Lab/Radiology/Diagnostic Review: Recent Labs Lab Units 10/15/23 0106 10/14/23 010 WBC K/cumm 7.6 6.2 HEMOGLOBIN g/dL 9.4* 9.4* HEMATOCRIT % 29.4* 29.0* Recent Labs Lab Units 10/15/23 0756 10/15/23 0130 10/15/23 0106 10/14/23 0205 10/14/23 0104 SODIUM mmol/L -- -- 130* < > 130* POTASSIUM PLASMA mmol/L -- -- 4.3 < > 4.3 CHLORIDE mmol/L -- -- 89* < > 90* CO2 mmol/L -- -- 22 < > 21* GLUCOSE mg/dL -- -- 308* < > 453* POC GLUCOSE MONITOR mg/dL 249* < > -- < > -- BUN SERUM mg/dL -- -- 78* < > 66* CREATININE mg/dL -- -- 10.57* < > 10.57* CALCIUM mg/dL -- -- 8.2* < > 9.2 ALBUMIN g/dL -- -- 3.3* -- 3.4* ALK PHOS Units/L -- -- -- -- 98 ALT Units/L -- -- -- -- 21 AST Units/L -- -- -- -- 28 BILIRUBIN TOTAL mg/dL -- -- -- -- 0.3 < > = values in this interval not displayed. Recent Labs Lab Units 10/15/23 0427 10/14/23 0553 10/14/23 010 APTT sec 75* < > 68* INR -- -- 1.18 < > = values in this interval not displayed. Assessment/Plan: Principal Problem: CAD in [place] artery # CAD with NSTEMI, aortic stenosis, paroxysmal afib Cath at [facility] showed multivessel disease, and Echo showed EF 25%, severe aortic stenosis. Transferred to [facility] for possible surgery. - possible CABG and AVR on Tuesday 10/17 - hold Eliquis, continue heparin gtt for now, hold for procedures - continue aspirin, atorvastatin, Zetia, gemfibrozil, Imdur 60, metoprolol 50 BID, Ranolazine 500 BID. Adjustments per Cardiology # T1DM with DKA - RESOLVED Had DKA upon admission, resolved with insulin infusion, now on basal/bolus. Insulin pump is not functioning per pt. BG up to 300's with meals yesterday - increase Lantus to 30, prandial Humalog to 12 TID, continue SSI, adjust as needed # ESRD on PD, essential HTN, gout, GERD - continue PD per Dr. Carranza, colchicine, Pepcid, calcitriol, ergocalciferol, nifedipine. # BEN - resume CPAP at night Disposition Planning Full Code Pending cardiac surgery, tentatively planned for 10/17 (to be scheduled) Medical decision-making: moderate complexity Frank Cody MD DING ADMIN * Fernandez Carranza MD - 10/15/2023 9:42 AM CST Images from the original note were not included. Nephrology Juvenal Garvin Jr. - 1970 Primary : Aditya Correa MD History and interval events: 53-year-old gentleman with history of type 1 diabetes mellitus on insulin pump, CHF, CAD, ESRD on peritoneal dialysis initially presented to [facility] in [facility] on October 09 for symptoms of general malaise for the past 4 days prior to admission. Patient was having symptoms of nausea with dry heaves. He presented hemodynamically stable. His glucose was measured to be 584, beta hydroxybutyrate 2.9 with an anion gap of 19. Patient was transferred to the ICU for insulin dripand DKA management. During this hospitalization his troponin was measured to be elevated prompting a cardiology consultation which lead to a C. Results were notable for severe CAD and he was recommended to seek surgical revascularization evaluation prompting transfer to this facility. He missed his peritoneal dialysis last evening during transfer. He has been on peritoneal dialysis for approximately 2 years and tolerating this well under the care of Dr. Reyes. He does make some urine. Tolerated PD well overnight - initial drain was 12 cc and UF of 1189 cc No complaints today. Medication: Current medication list reviewed Intake and Output Summary: Intake/Output Summary (Last 24 hours) at 10/15/2023 0942 Last data filed at 10/15/2023 0645 Gross per 24 hour Intake 3685 ml Output 1201 ml Net 2484 ml Vital Signs: Vitals: 10/15/23 0836 BP: Pulse: 52 Resp: 16 Temp: 36.3 ??C (97.4 ??F) SpO2: Physical Exam: General Youngish man sitting up in bed no acute distress H&N No visible JVD Eyes Pupils symmetrical with no scleral icterus Chest Bibasilar inspiratory crackles Heart S1-S2 regular Abdomen Soft and non tender PD catheter in situ Extremeties Pitting lower extremity edema Skin No rash Neuro Nonfocal Mental status Alert and conversant CBC: Recent Labs Lab Units 10/15/23 0106 10/14/23 0104 WBC K/cumm 7.6 6.2 HEMOGLOBIN g/dL 9.4* 9.4* HEMATOCRIT % 29.4* 29.0* PLATELETS K/cumm 375 357 RFP: Recent Labs Lab Units 10/15/23 0106 10/14/23 0553 10/14/23 0104 SODIUM mmol/L 130* 131* 130* POTASSIUM PLASMA mmol/L 4.3 4.3 4.3 CHLORIDE mmol/L 89* 92* 90* CO2 mmol/L 22 23 21* BUN SERUM mg/dL 78* 75* 66* CREATININE mg/dL 10.57* 10.22* 10.57* CALCIUM mg/dL 8.2* 9.0 9.2 PHOSPHORUS PLASMA mg/dL 5.7* -- -- ALBUMIN g/dL 3.3* -- 3.4* Impression and Recommendations: 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 [place], [place] [address] [phone] - Office [phone] - Fax DING ADMIN * Frank Cody MD - 10/14/2023 11:39 AM CST [facility] Hospitalist Service Progress Note Chief complaint (on admission): Chest pain, weakness Subjective: Pt had no significant events overnight. 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 This morning, he is alert, comfortable, denies recurrence of chest pain since arrival. His insulin pump was not working at [facility] and he has been using basal/bolus doses. He denies any recent problems with PD, otherwise no complaints. He confirms that he follows with Dr. Ortega ([facility]) and Eric ( Nephrology in [facility]). Objective: Vitals and I/O Temp Min: 36.4 ??C (97.5 ??F) Max: 36.7 ??C (98 ??F) Pulse Min: 62 Max: 69 BP Min: 131/76 Max: 142/82 Resp Min: 18 Max: 20 SpO2 Min: 95 % Max: 95 % I/O last 2 completed shifts: In: 500 [IV Piggyback:500] Out: - Body mass index is 39 kg/m??. Physical Exam: General Appearance: Comfortable, cooperative Head: Normocephalic, atraumatic Lungs: Normal respiratory effort Cardiovascular: Regular rate Abdomen: Soft, nondistended +PD catheter in LLQ Extremities: No edema Skin: No new rashes, lesions or bruising Neurologic: Alert, oriented Psychosocial: Normal affect and mood Lab/Radiology/Diagnostic Review: Recent Labs Lab Units 10/14/23 0104 WBC K/cumm 6.2 HEMOGLOBIN g/dL 9.4* HEMATOCRIT % 29.0* Recent Labs Lab Units 10/14/23 1106 10/14/23 0556 10/14/23 0553 10/14/23 0205 10/14/23 0104 SODIUM mmol/L -- -- 131* -- 130* POTASSIUM PLASMA mmol/L -- -- 4.3 -- 4.3 CHLORIDE mmol/L -- -- 92* -- 90* CO2 mmol/L -- -- 23 -- 21* GLUCOSE mg/dL -- -- 287* -- 453* POC GLUCOSE MONITOR mg/dL 138 < > -- < > -- BUN SERUM mg/dL -- -- 75* -- 66* CREATININE mg/dL -- -- 10.22* -- 10.57* CALCIUM mg/dL -- -- 9.0 -- 9.2 ALBUMIN g/dL -- -- -- -- 3.4* ALK PHOS Units/L -- -- -- -- 98 ALT Units/L -- -- -- -- 21 AST Units/L -- -- -- -- 28 BILIRUBIN TOTAL mg/dL -- -- -- -- 0.3 < > = values in this interval not displayed. Recent Labs Lab Units 10/14/23 0553 10/14/23 0104 APTT sec 56* 68* INR -- 1.18 Assessment/Plan: Principal Problem: CAD in [place] artery # CAD with NSTEMI, aortic stenosis, paroxysmal afib Cath at [facility] showed multivessel disease, and Echo showed EF 25%, severe aortic stenosis. Transferred to [facility] for possible surgery. Discussed with CT Surgery: - tentatively plan for CABG and AVR Monday - hold Eliquis, continue heparin gtt for now, hold for procedures - continue aspirin, atorvastatin, Zetia, gemfibrozil, Imdur 60, metoprolol 50 BID, Ranolazine 500 BID. Adjustments per Cardiology ([facility]) # T1DM with DKA Had DKA upon admission, resolved with insulin infusion, now on basal/bolus. Insulin pump is not functioning per pt. - continue Lantus 15, prandial Humalog 5 TID, SSI, adjust as needed # ESRD on PD, essential HTN, gout, GERD - continue PD per Dr. Carranza, colchicine, Pepcid, calcitriol, ergocalciferol, nifedipine. # BEN - resume CPAP at night Disposition Planning Full Code Discussed extensively with Dillon Draper, Cardiology today Pending surgery, tentatively planned for Monday 10/16 Medical decision-making: high complexity Frank Cody MD DING ADMIN * Cruzito Donnelly RPh - 10/14/2023 10:08 AM CST Pharmacy Note - Formulary Substitution Cholecalciferol (Vitamin D3) 50,000 units weekly has been substituted for Ergocalciferol (Vitamin D2) 50,000 units weekly as approved by the [facility] Pharmacy and Therapeutics Committee. Cruzito Donnelly PharmD, FELIPA Clinical Pharmacist 10/14/23 10:04 AM DING ADMIN documented in this encounter H&P Notes * Dawna Castellanos NP - 10/17/2023 1:44 PM CSTAssociated Order(s): Critical Care Images from the original note were not included. [facility] CVR History & Physical - Patient: Juvenal Garvin Jr. : 1970 Age: 53 y.o. male Admitting Physician: Jaqueline Valero MD Foundry Patternmaker: Kirsten Burns MD Shift: [facility] CVR AM HPI: 53-year-old man with a history of ESRD on PD, CAD s/p PCI, SC, and DVT on chronic anticoagulation, Type 1 DM, HTN who presented to [facility] initially on 10/09/23 with general malaise and found to be in DKA and admitted to ICU. During hospitalization found to have elevated Troponins promptedcardiology evaluation and LHC significant for multivessel CAD and subsequently also found aortic stenosis. Transferred to [facility] 10/14/23 for surgical evaluation (10/17/23) s/p CABG x 3 (SVG-PDA, SVG-OM, BRICE-LAD) and mechanical AVR (25 Bello) by Dr. Valero. Anesthesia reported easy airway. Post-procedure LEIA (reported, no note available) on CHEMICAL ENGINEERING INTERN 5 of inotropicsupport revealed: LVEF 40-50% and normal RV. OR totals include: 2 PRBC, 2 FFP, 10 Cryo, 1 PLT. OR course notable for coagulopathy. Patient arrived to CVR intubated and sedated on Propofol and hemodynamically supported on CHEMICAL ENGINEERING INTERN 5, NE 0.05. ROS: Unable to obtain, patient intubated and sedated Admitted to the hospital on 10/13/2023 11:18 PM for CAD in [place] artery [I25.10] Hospital Course: (10/17/23) s/p CABG x 3 (SVG-PDA, SVG-OM, BRICE-LAD) and mechanical AVR (25 Bello) by Dr. Valero Past Medical History: Diagnosis Date CAD (coronary artery disease) Chest pain Diabetes mellitus (HCC) Diabetes mellitus type I (HCC) Dialysis patient (HCC) ESRD on dialysis (HCC) GERD (gastroesophageal reflux disease) Hyperlipidemia Hypertension Sleep apnea SOB (shortness of breath) Past Surgical History: Procedure Laterality Date APPENDECTOMY Appendectomy APPENDECTOMY CENTRAL LINE PLACEMENT > 5 YEARS N/A 06/18/2022 CORONARY ANGIOPLASTY WITH STENT PLACEMENT FEMUR SURGERY KNEE SURGERY knee surgery OPEN REDUCTION INTERNAL FIXATION ORIF OTHER SURGICAL HISTORY eye surg-vitrectomy HOME MEDICATIONS : acetaminophen 500 mg capsule aspirin 81 mg enteric coated tablet atorvastatin (LIPITOR) 80 mg tablet calcitRIOL (ROCALTROL) 0.25 mcg capsule calcium acetate,phosphat bind, (PHOSLO) 667 mg capsule cetirizine (ZyrTEC) 10 mg tablet cholecalciferol (VITAMIN D-3) 2000 unit tablet clopidogrel (PLAVIX) 75 mg tablet colchicine (COLCRYS) 0.6 mg tablet EZETIMIBE ORAL famotidine (PEPCID) 40 mg tablet gemfibroziL (LOPID) 600 mg tablet icosapent ethyL (VASCEPA) 1 gram capsule insulin lispro (HumaLOG, ADMELOG) 100 unit/mL vial for injection isosorbide mononitrate ER (IMDUR) 30 mg 24 hr tablet metoprolol (LOPRESSOR) 100 mg tablet NIFEdipine (NIFEdipine XL) 90 mg 24 hr tablet omeprazole (PriLOSEC) 20 mg capsule potassium chloride ER 10 mEq CR tablet ranolazine ER (RANEXA) 500 mg 12 hr tablet losartan (COZAAR) 25 mg tablet pen needle, diabetic (BD Ultra-Fine Short Pen Needle) 31 gauge x 5/16 needle Social History Tobacco Use Smoking status: Never Smokeless tobacco: Former Substance and Sexual Activity Drug use: No Sexual activity: Defer Alcohol Use: Not At Risk (06/07/2022) AUDIT-C Frequency of Alcohol Consumption: Monthly or less Average Number of Drinks: 3 or 4 Frequency of Binge Drinking: Never Allergies Allergen Reactions Allopurinol Other (See comments) [...] Rash Iodinated Diagnostic Agents Ticagrelor Rash Rash Family History Problem Relation Age of Onset Heart attack Father Temp: [36.2 ??C (97.2 ??F)-36.8 ??C (98.2 ??F)] 36.2 ??C (97.2 ??F) Pulse: [55-91] 90 BP: (97-128)/(36-69) 97/36 Resp: [9-21] 12 SpO2: [90 %-100 %] 95 % Arterial Line BP: (106-111)/(40-42) 111/42 FiO2 (%): [50 %-100 %] 50 % PAP: 37/20 (10/17 1345) CVP: 257 mmHg (10/17 1345) PCWP: -- CO: -- CI: -- SVO2: -- Pacemaker Overdrive Pacing: -- Cardiac Rhythm: Atrial paced (10/17 1330) Pacer Mode: -- Scheduled Meds: acetaminophen, 1,000 mg, Q6H ASHLEY OR acetaminophen, 1,000 mg, Q6H ASHLEY OR acetaminophen, 650 mg, Q6H ASHLEY aspirin, 325 mg, Daily OR aspirin, 325 mg, Daily OR aspirin, 300 mg, Daily atorvastatin, 80 mg, Daily calcitRIOL, 0.25 mcg, Daily [START ON 10/18/2023] ceFAZolin, 1,000 mg, Q24H ASHLEY docusate sodium, 100 mg, BID OR docusate, 100 mg, BID ezetimibe, 10 mg, Daily famotidine, 20 mg, Q24H [Held by Provider] heparin, 5,000 Units, Q8H ASHLEY insulin regular, 2-14 Units, Once [START ON 10/18/2023] senna, 1 tablet, BID OR [START ON 10/18/2023] senna, 8.8 mg, BID sodium chloride 0.9%, 0.5-20 mL, Q8H ASHLEY sodium chloride 0.9%, 0.5-20 mL, Q8H ASHLEY Physical Exam: Neuro: Sedated, unable to follow simple commands, pupils pinpoint. Obese Cardiovascular: S1 S2, RRR, mechanical click heard, epicardial wires set AAI 90, periphery cool with palpable distal pulses, generalized anasarca on exam Pulmonary: Intubated and mechanically ventilated, breath sounds clear to auscultation bilaterally GI: Abdomen obese soft, non-distended, bowel sounds absent. OG to LIWS. PD catheter in LLQ clamped : Nguyen catheter in place draining minimal clear, yellow urine Skin: Cool and dry. Midline sternal incision with OR dressing intact. SVG site with NICOLÁS wrap dressing intact. Drains: Chest tubes to -20 suction with small amount of sanguinous drainage, no air leak. CODEY drain to R groin to bulb suction with serosanguinous drainage. Infusions: dextrose 5% and Lactated Ringer's, 20 mL/hr, Last Rate: 20 mL/hr (10/17/23 1603) Dianeal low calcium-dextrose 2.5 % 6,000 mL dialysis solution, Dianeal low calcium-dextrose 2.5 % 6,000 mL dialysis solution, DOButamine, 5 mcg/kg/min insulin regular, 0-30 Units/hr, Last Rate: 0.5 Units/hr (10/17/23 1556) norepinephrine, 0-2 mcg/kg/min, Last Rate: 0.06 mcg/kg/min (10/17/23 1530) propofol, 0-50 mcg/kg/min sodium chloride 0.9%, 10 mL/hr sodium chloride 0.9%, 10 mL/hr, Last Rate: 10 mL/hr (10/17/23 1437) sodium chloride 0.9%, 0-250 mL sodium chloride 0.9%, 0-250 mL sodium chloride 0.9%, 3-12 mL/hr PRN Meds: bisacodyL, 10 mg calcium chloride, 1,000 mg sodium chloride 0.9%, 30 mL sodium chloride 0.9%, 30 mL dextrose, 125 mL dextrose, 15 g OR dextrose, 250 mL dextrose 5% water, 10-30 mL glucagon, 1 mg HYDROmorphone, 0.2 mg insulin lispro, 1-14 Units insulin regular, 2-14 Units magnesium sulfate, 2 g ondansetron, 4 mg oxyCODONE, 5 mg polyethylene glycol, 17 g potassium chloride ER, 20 mEq OR potassium chloride, 20 mEq potassium chloride ER, 40 mEq OR potassium chloride, 40 mEq potassium chloride, 20 mEq ramelteon, 8 mg sodium chloride 0.9%, 0.5-20 mL sodium chloride 0.9%, 0.5-20 mL sodium chloride 0.9%, 10 mL/hr Date 10/16/23699 - 10/17/23 0659 10/17/23699 - 10/18/23 0659 Shift 0342-6443 7976-4601 24 Hour Total 5969-2917 1033-7907 24 Hour Total INTAKE P.O. 122 483 4700 I.V.(mL/kg) 570(4.5) 570(4.5) 2031(16.1) 203(16.1) Blood 1142 1142 Other 2500 2500 IV Piggyback 375 375 Shift Total(mL/kg) 680(5.4) 3710(29.4) 4390(34.8) 3548(28.1) 3548(28.1) OUTPUT Urine(mL/kg/hr) 77 77 Other 2142 2803 4945 4000 4000 Blood 1000 1000 Chest Tube 380 380 Shift Total(mL/kg) 2142(17) 2803(22.2) 4945(39.2) 5457(43.2) 5457(43.2) NET -1462 907 -520 -1908 Weight (kg) 126.2 126.2 126.2 126.2 126.2 126.2 LDA Introducer 10/17/23 Right Internal jugular (Active) Number of days: 0 CVC Quadruple Lumen 10/17/23 Right Internal jugular (Active) Number of days: 0 PA Catheter 7.5 Fr. Right Other (Comment) (Active) Number of days: 0 Arterial Line 10/17/23 Right Radial (Active) Number of days: 0 Pacer Wires (Active) Number of days: 0 Urethral Catheter Non-latex;Temperature probe (Active) Number of days: 0 Chest Tube Left Pleural (Active) Number of days: 0 Closed/Suction/Open Drain Right;Proximal Thigh Bulb 19 Fr. (Active) Number of days: 0 Y Chest Tube A and B Mediastinal 28 Fr. Mediastinal 24 Fr. (Active) Number of days: 0 Recent Labs Lab Units 10/17/23 1327 10/15/23 0106 10/14/23 0553 SODIUM mmol/L 139 130* 131* POTASSIUM PLASMA mmol/L 3.8 4.3 4.3 CHLORIDE mmol/L 98 89* 92* CO2 mmol/L 23 22 23 BUN SERUM mg/dL 75* 78* 75* CREATININE mg/dL 10.43* 10.57* 10.22* MAGNESIUM mg/dL 2.3 -- -- PHOSPHORUS PLASMA mg/dL 6.1* 5.7* -- Recent Labs Lab Units 10/17/23 1327 10/14/23 0104 ALK PHOS Units/L -- 98 ALT Units/L -- 21 AST Units/L -- 28 BILIRUBIN TOTAL mg/dL -- 0.3 LACTATE mmol/L 1.2 -- Recent Labs Lab Units 10/17/23 1327 10/17/23 1226 10/17/23 1151 10/17/23 0947 10/17/23 0029 10/16/23 0031 WBC K/cumm 7.4 -- -- -- 9.7 7.7 HEMOGLOBIN, POC g/dL -- 8.1* 7.9* < > -- -- HEMOGLOBIN g/dL 8.4* -- -- -- 9.0* 9.4* HEMATOCRIT % 26.0* -- -- -- 27.4* 29.7* HEMATOCRIT POC % -- 24.0* 24.0* < > -- -- PLATELETS K/cumm 167 -- -- -- 289 330 < > = values in this interval not displayed. Recent Labs Lab Units 10/17/23 1327 10/17/23 0029 10/16/23 1550 10/14/23 0553 10/14/23 0104 APTT sec 37 92* 73* < > 68* INR 1.29* -- -- -- 1.18 < > = values in this interval not displayed. Recent Labs Lab Units 10/17/23 1327 10/17/23 1226 10/17/23 1151 PH ART 7.36 7.31* 7.36 PCO2 ART mmHg 42 -- -- PO2 ART mmHg 65* -- -- PO2 ARTERIAL POC mmHg -- 112* 407* HCO3 ART POC mmol/L -- 23 22 HCO3 ART (CALC) mmol/L 24 -- -- POCT BASE EXCESS, ARTERIAL mmol/L -- -2.1* -3.2* BASE EXC ART mmol/L -2 -- -- O2 SAT ART (CALC) % 92* -- -- Impression and Plan: Cardiogenic Shock NSTEMI s/p CABG Aortic valve stenosis s/p mechanical AVR Post CPB LEIA on CHEMICAL ENGINEERING INTERN 5 with LVEF 40-50%, normal RV. Arrived on CHEMICAL ENGINEERING INTERN 5, NE 0.05 with low filling pressures and AAI 90. Initial CI 2.2. - Give Ca+ now while on pressors. - SBP goal 100-120 - Keep CHEMICAL ENGINEERING INTERN at 5 - Maintain EPW AAI 90 - CT to (-)20cm suction - Discuss if DAPT warranted or systemic anticoagulation for mAVR - ASA within 6 hours if no bleeding - statin daily start POD 1 Paroxysmal atrial fibrillation History of pAF. On Eliquis at home. Was on Heparin drip pre op. Arrived from OR AAI at 90 with reported bradycardia pre op. - Keep K>4.0, Mag>2.0 - BB once off inotropes Acute Respiratory Insufficiency Atelectasis BEN History of BEN with intermittent compliance with CPAP. Post-procedural short-term ventilator support with anticipated extubation. Pt sedated with propofolon arrival from OR. Post op ABG with PaO2 65. CXR with L>R atelectasis. ETT 4.5cm above boni. - Plan to wean sedation for PSV trial with goal extubation if no signs of active bleeding and hemodynamically stable - Pulmonary hygiene with IS and C&DB after extubation - Wean supplemental O2 for SpO2 > 92% Acute Postoperative Pain Expected postop pain following cardiac surgery. Currently sedated on Propofol. - Scheduled acetaminophen 1gm Q6H - Oxycodone 5mg Q3H PRN 1st line. May repeat in 1 hour if pain is uncontrolled or increasing. Max 2doses within 1 dosing interval. - Hydromorphone 0.2mg Q2H PRN for breakthrough pain - Wean sedation for PSV trial when appropriate ESRD on PD Hyperphosphatemia On PD at home. Last fill 10/15pm. Makes some urine. Cr post op 10.43. Phos 6.1. - Plan for PD via cycler tonight per renal - Appreciate renal's input - Avoid nephrotoxic medications - Renally dose medications - Maintain MAP > 65 for renal perfusion - AM BMP History of DVT In RL2016. Had been on Eliquis at home. - Will need systemic anticoagulation for mAVR eventually Type 1 DM Admitted to OSH for DKA and was transitioned off Insulin drip prior to transfer to [facility]. Insulin pump not working when he presented to ER. Very labile blood sugars on basal/SSI regimen with glucose up to 300s. - Continue Insulin infusion per [place] protocol - do not turn off drip - Consider Endocrine consult in AM Acute Blood Loss Anemia Chronic anemia Coagulopathy Expected following cardiac surgery. 2 PRBC, 2 FFP, 10 Cryo, 1 PLT for intraop blood products. Chronic anemia with ESRD. Hgb 8.4, PLT 167. Coags stable. - No current indication for transfusion, consider if patient becomes hemodynamically unstable with increased pressor requirements or Hgb < 7.0. - CBC daily Leukocytosis Likely inflammatory following procedure. - No current indication for culture, consider if temp > 38.5 - Continue periop antibiotics to completion, no Vanc Additional ICU Care: DVT prophylaxis: subcutaneous heparin ordered to start tomorrow PUD prophylaxis: H2 umair IV until extubated. Nutrition: NPO Bowel regimen: Scheduled docusate and senna. Polyethylene glycol and bisacodyl suppository PRN. Glycemic control: [place] Protocol insulin gtt.. Lab Results Component Value Date HGBA1C 8.1 (H) 10/16/2023 Physical therapy/Activity: PT/OT ordered today to start when the patient can actively participate Updates: PEEP to 8, Fio2 70% with desaturations. Will FU ABG Increased CT output. Dr. Valero aware as well as CCP. DDAVP ordered. Continues to bleed ~120ml the past hour. Has been putting out 100ml an hour from CODEY. Will have RN re-wrap leg. NE at 0.06. Low filling pressures. Will give 1 PRBC, 1 FFP, FU CBC and coags after Ongoing bleeding, will send CBC and coags after transfusions. Dawna Castellanos NP Critical Care Performed by: Dawna Castellanos NP Authorized by: Dawna Castellanos NP CRITICAL CARE: Team: [facility] CT Shift: AM Level of Billing: Critical Care My time spent with this patient was 120 minutes: Critical Provider Statement: I have seen and examined the patient on this day of service. I have reviewed and confirmed the history, physical exam, laboratory and radiologic data as documented in thesigned ICU note. I have reviewed and discussed my treatment plan with the ICU team and other medical/as400 consultant staff, making frequent assessments and decisions regarding this patient's complex medical care. Critical Care time was exclusive of time spent performing separately billed procedures, treating other patients, and teaching. This time was in addition to and separate from critical care provided by other practitioners in my group on this day of service. Critical Care was necessary to treat or prevent imminent or life-threatening deterioration of the following conditions: I spent time documenting in the medical record, I spent time discussing the management of this critically ill patient with consultants and the medical staff and I spent time reviewing and interpreting data from bedside monitors, laboratory results, and imaging Cosigned by Kirsten Burns MD at 10/17/2023 6:30 PM BUILDING ADMIN DING ADMIN DING ADMIN * Jaqueline Valero MD - 10/17/2023 7:54 AM CST I have reviewed the H&P, examined the patient, and endorse the findings as written. The patientwishes to receive a mechanical valve. Plan of Care : Based on the above findings, I consider Juvenal Garvin Jr. to be an acceptable risk for : Procedure(s): CORONARY ARTERY BYPASS GRAFT (8:00 start per JS) REPLACEMENT AORTIC VALVE DING ADMIN Source Note - Guerline Rodriguez PA - 10/14/2023 2:10 PM BUILDING ADMIN Cardiothoracic Surgery Consultation Patient Name: Juvenal Garvin Jr. Admit Date: 10/13/2023 Admitting Provider: Julio Lopez DO Chief Complaint Multivessel coronary artery disease, aortic valve stenosis History of Present Illness Juvenal Garvin is a 53-year-old male who has been transferred to [facility] for consideration of coronary artery bypass grafting and aortic valve replacement. His past medical history includes severe CAD with previous PCI, paroxysmal atrial fibrillation, type 1 diabetes mellitus, ESRD on peritoneal dialysis, hypertension, hyperlipidemia, and sleep apnea. He presented to [facility] in [place], [place] on 10/09/23 complaining of fatigue, malaise, and shortness of breath for about 3-4 days prior. His blood glucose levels were significantly elevated > 500 and he had an anion gap of 19 on his labs. He was admitted there for management of DKA. Additionally he noted some chest discomfort symptoms, so cardiac troponin levels were drawn which were abnormal. An echocardiogram was obtained that showed moderately severe aortic valve stenosis with a LVEF 25-30%. He subsequently had a cardiac catheterization on 10/13/23 that demonstrated severe multivessel coronary artery disease, the aortic valve was not crossed during the catheterization. He has been transferred to [facility] for consideration of coronary artery bypass and aortic valve replacement. He had been receiving Eliquis and Plavix up until transfer to [facility]. Since arrival here he denies any additional chest pain episodes. His glucose levels continue to fluctuate but have reasonably controlled today. Past Medical History: Diagnosis Date CAD (coronary artery disease) Chest pain Diabetes mellitus (HCC) Diabetes mellitus type I ([facility]) Dialysis patient ([facility]) ([facility]) ESRD on dialysis ([facility]) ([facility]) GERD (gastroesophageal reflux disease) Hyperlipidemia Hypertension Sleep apnea SOB (shortness of breath) Past Surgical History: Procedure Laterality Date APPENDECTOMY Appendectomy APPENDECTOMY CENTRAL LINE PLACEMENT > 5 YEARS N/A 06/18/2022 CORONARY ANGIOPLASTY WITH STENT PLACEMENT FEMUR SURGERY KNEE SURGERY knee surgery OPEN REDUCTION INTERNAL FIXATION ORIF OTHER SURGICAL HISTORY eye surg-vitrectomy Family History Problem Relation Age of Onset Heart attack Father Social History Tobacco Use Smoking status: Never Smokeless tobacco: Former Substance and Sexual Activity Drug use: No Sexual activity: Defer Alcohol Use: Not At Risk (06/07/2022) AUDIT-C Frequency of Alcohol Consumption: Monthly or less Average Number of Drinks: 3 or 4 Frequency of Binge Drinking: Never Current Medications Current Facility-Administered Medications: acetaminophen (TYLENOL) tablet 650 mg, 650 mg, oral, Q4H PRN, Julio Lopez DO ALPRAZolam (XANAX) tablet 1 mg, 1 mg, oral, TID PRN, Frank Cody MD aspirin enteric coated tablet 81 mg, 81 mg, oral, Daily, Vinay Pratt DO, 81 mg at 10/14/23 0852 atorvastatin (LIPITOR) tablet 80 mg, 80 mg, oral, Daily, Vinay Pratt DO, 80 mg at 10/14/23 0844 bisacodyL (DULCOLAX) suppository 10 mg, 10 mg, rectal, Daily PRN, Julio Lopez DO calcitRIOL (ROCALTROL) capsule 0.25 mcg, 0.25 mcg, oral, Daily, Vinay Pratt DO, 0.25 mcg at 10/14/23 0844 Carrier Fluids for Secondary Infusion - 0.9% Sodium Chloride, 30 mL, intravenous, PRN, Julio Lopez DO [Held by Provider] clopidogreL (PLAVIX) tablet 75 mg, 75 mg, oral, Daily, Vinay Pratt DO [START ON 10/16/2023] colchicine (COLCRYS) tablet 0.6 mg, 0.6 mg, oral, Once per day on Monday, Vinay Pratt DO dextrose (GLUTOSE) 40 % gel 15 g, 15 g, oral, Q15 Min PRN OR dextrose (D10W) 10% bolus 250 mL, 250 mL, intravenous, Q15 Min PRN, Vinay Pratt DO ergocalciferol (VITAMIN D) capsule 50,000 Units, 50,000 Units, oral, Weekly, Frank Cody MD, 50,000 Units at 10/14/23 1228 ezetimibe (ZETIA) tablet 10 mg, 10 mg, oral, Daily, Vinay Pratt DO, 10 mg at 10/14/23 0844 famotidine (PEPCID) tablet 20 mg, 20 mg, oral, Nightly, Vinay Pratt DO gemfibroziL (LOPID) tablet 600 mg, 600 mg, oral, BID AC (bkfst, lunch), Vinay Pratt DO, 600 mg at 10/14/23 1229 glucagon injection 1 mg, 1 mg, intramuscular, Q30 Min PRN, Vinay Pratt DO heparin 5,000 unit/mL injection 2,000 Units, 2,000 Units, intravenous, Q6H PRN OR heparin 5,000unit/mL injection 3,000 Units, 3,000 Units, intravenous, Q6H PRN, Vinay Pratt DO heparin in 0.45% sodium chloride 25,000 units/250 mL (100 units/mL) infusion (premix), 0-33 Units/kg/hr, intravenous, Titrated, Vinay Pratt DO, Last Rate: 11.2 mL/hr at 10/14/23 0710, 9.1 Units/kg/hr at 10/14/23 0710 insulin glargine (LANTUS, SEMGLEE) 100 unit/mL injection 15 Units, 15 Units, subcutaneous, QAM, Frank Cody MD, 15 Units at 10/14/23 1004 insulin lispro (HumaLOG, ADMELOG) 100 unit/mL injection 0-10 Units, 0-10 Units, subcutaneous, TID with meals, Frank Cody MD, 5 Units at 10/14/23 1228 insulin lispro (HumaLOG, ADMELOG) 100 unit/mL injection 5 Units, 5 Units, subcutaneous, TID with meals, Frank Cody MD, 5 Units at 10/14/23 1004 isosorbide mononitrate ER (IMDUR) extended release tablet 60 mg, 60 mg, oral, Daily, Vinay Pratt DO, 60 mg at 10/14/23 0845 metoprolol tartrate (LOPRESSOR) immediate release tablet 50 mg, 50 mg, oral, Q12H, Vinay Pratt, , 50 mg at 10/14/23 0217 NIFEdipine (PROCARDIA XL/ADALAT CC) extended release tablet 90 mg, 90 mg, oral, Daily, Vinay Pratt, DO, 90 mg at 10/14/23 0844 ondansetron ODT (ZOFRAN-ODT) disintegrating tablet 4 mg, 4 mg, oral, Q6H PRN OR ondansetron (ZOFRAN) injection 4 mg, 4 mg, intravenous, Q6H PRN, Julio Lopez DO pantoprazole DR (PROTONIX) extended release tablet 40 mg, 40 mg, oral, Daily, Vinay Pratt, , 40 mg at 10/14/23 0844 ramelteon (ROZEREM) tablet 8 mg, 8 mg, oral, Nightly PRN, Julio Lopez DO ranolazine ER (RANEXA) extended release tablet 500 mg, 500 mg, oral, BID, Vinay Pratt, , 500 mg at 10/14/23 0844 sodium chloride 0.9% flush 0.5-20 mL, 0.5-20 mL, intra-catheter, Q8H ASHLEY, Julio Lopez DO, 10 mL at 10/14/23 0105 sodium chloride 0.9% flush 0.5-20 mL, 0.5-20 mL, intra-catheter, PRN, Julio Lopez DO Allergies Allopurinol, Chlorhexidine, Chlorhexidine gluconate, Contrast dye [iodinated contrast media], Other, and Ticagrelor Review of Systems General ROS: positive for - fatigue and malaise negative for - chills, fever, or night sweats ENT ROS: negative for - epistaxis or oral lesions Hematological and Lymphatic ROS: negative for - blood clots Endocrine ROS: positive for - polydipsia/polyuria Respiratory ROS: positive for - shortness of breath negative for - cough, hemoptysis, or wheezing Cardiovascular ROS: positive for - chest pain, edema, and shortness of breath negative for - loss of consciousness or palpitations Gastrointestinal ROS: positive for - nausea/vomiting negative for - blood in stools, diarrhea, or melena Genito-Urinary ROS: no dysuria, trouble voiding, or hematuria Neurological ROS: no TIA or stroke symptoms Dermatological ROS: negative for rash Physical Exam Vitals: 10/14/23 1200 BP: 114/71 Pulse: Resp: 20 Temp: 36.5 ??C (97.7 ??F) SpO2: 93% General Inspection: alert; pleasant affect; no apparent distress Neck: supple without lymphadenopathy or thyromegaly; no overt jugular venous distention; no carotidbruits Lungs: clear to auscultation bilaterally Heart: regular rate and rhythm; soft 1/6 murmur at the LUSB Abdomen: bowel sounds positive; soft,non-tender, non-distended; PD catheter present Extremities: minimal lower extremity edema; peripheral pulses 2+ bilaterally Neurologic: cranial nerves II-XII grossly intact; no focal neuromuscular deficit; alert and oriented x 3 Laboratory / Radiology / Diagnostic Data Recent Results (from the past 24 hour(s)) POCT glucose Collection Time: 10/13/23 11:25 PM Result Value Ref Range Glucose, POC 534 (Critical) 70 - 140 mg/dL Glucose comment 1 Glu2: Comprehensive metabolic panel Collection Time: 10/14/23 1:04 AM Result Value Ref Range Sodium 130 (L) 135 - 145 mmol/L Potassium, pl 4.3 3.3 - 4.9 mmol/L Chloride 90 (L) 97 - 110 mmol/L CO2 21 (L) 22 - 32 mmol/L Anion gap 19 (H) 2 - 15 mmol/L BUN 66 (H) 6 - 25 mg/dL Creatinine 10.57 (H) 0.80 - 1.30 mg/dL Glucose 453 (Critical) 70 - 199 mg/dL Calcium 9.2 8.5 - 10.3 mg/dL Bilirubin, total 0.3 0.1 - 1.2 mg/dL Protein, pl 6.4 (L) 6.5 - 8.5 g/dL Albumin 3.4 (L) 3.5 - 5.0 g/dL Alk phos 98 40 - 130 Units/L ALT 21 7 - 55 Units/L AST 28 10 - 50 Units/L CBC with auto differential Collection Time: 10/14/23 1:04 AM Result Value Ref Range WBC 6.2 3.8 - 9.9 K/cumm Hgb 9.4 (L) 13.0 - 17.5 g/dL Hct 29.0 (L) 38.9 - 50.3 % Plt 357 150 - 400 K/cumm MPV 11.0 9.1 - 12.3 fL RBC 3.21 (L) 4.30 - 5.80 M/cumm MCV 90.3 81.3 - 96.4 fL MCH 29.3 27.1 - 33.3 pg MCHC 32.4 32.3 - 35.7 g/dL RDW CV 13.6 11.1 - 14.9 % RDW SD 44.1 35.7 - 48.1 fL NRBC abs 0.00 0.00 - 0.01 K/cumm Protime-INR Collection Time: 10/14/23 1:04 AM Result Value Ref Range PT 13.5 10.3 - 13.7 sec INR 1.18 0.90 - 1.20 aPTT Collection Time: 10/14/23 1:04 AM Result Value Ref Range aPTT 68 (H) 28 - 38 sec Differential, auto Collection Time: 10/14/23 1:04 AM Result Value Ref Range Neutrophil abs 4.8 1.5 - 6.5 K/cumm Imm gran abs 0.1 0.0 - 0.1 K/cumm Lymphocyte abs 0.7 (L) 0.8 - 3.3 K/cumm Monocyte abs 0.7 0.2 - 0.8 K/cumm Eosinophil abs 0.0 0.0 - 0.5 K/cumm Basophil abs 0.0 0.0 - 0.1 K/cumm Neutrophil pct 77.4 % Imm gran pct 1.0 % Lymphocyte pct 10.4 % Monocyte pct 11.2 % Eosinophil pct 0.0 % Basophil pct 0.0 % eGFR Collection Time: 10/14/23 1:04 AM Result Value Ref Range eGFR 5 mL/min/1.73 m2 POCT glucose Collection Time: 10/14/23 2:05 AM Result Value Ref Range Glucose, POC 425 (H) 70 - 140 mg/dL POCT glucose Collection Time: 10/14/23 3:04 AM Result Value Ref Range Glucose, POC 378 (H) 70 - 140 mg/dL POCT glucose Collection Time: 10/14/23 3:58 AM Result Value Ref Range Glucose, POC 382 (H) 70 - 140 mg/dL Basic metabolic panel Collection Time: 10/14/23 5:53 AM Result Value Ref Range Sodium 131 (L) 135 - 145 mmol/L Potassium, pl 4.3 3.3 - 4.9 mmol/L Chloride 92 (L) 97 - 110 mmol/L CO2 23 22 - 32 mmol/L Anion gap 16 (H) 2 - 15 mmol/L BUN 75 (H) 6 - 25 mg/dL Creatinine 10.22 (H) 0.80 - 1.30 mg/dL Glucose 287 (H) 70 - 199 mg/dL Calcium 9.0 8.5 - 10.3 mg/dL aPTT Collection Time: 10/14/23 5:53 AM Result Value Ref Range aPTT 56 (H) 28 - 38 sec eGFR Collection Time: 10/14/23 5:53 AM Result Value Ref Range eGFR 5 mL/min/1.73 m2 POCT glucose Collection Time: 10/14/23 5:56 AM Result Value Ref Range Glucose, POC 259 (H) 70 - 140 mg/dL POCT glucose Collection Time: 10/14/23 8:34 AM Result Value Ref Range Glucose, POC 134 70 - 140 mg/dL POCT glucose Collection Time: 10/14/23 11:06 AM Result Value Ref Range Glucose, POC 138 70 - 140 mg/dL POCT glucose Collection Time: 10/14/23 12:15 PM Result Value Ref Range Glucose, POC 140 70 - 140 mg/dL STS Operative Risk Score Procedure Type: CABG + AVR PERIOPERATIVE OUTCOME ESTIMATE % Operative Mortality 14.7% Morbidity & Mortality 38.3% Stroke 1.95% Renal Failure NA Reoperation 9.01% Prolonged Ventilation 29.4% Deep Sternal Wound Infection 1.18% Long Hospital Stay (>14 days) 33% Short Hospital Stay (<6 days)* 5.61% Assessment and Plan Juvenal Garvin is a 53-year-old male with recurrent severe multivessel coronary artery disease as well as moderately severe aortic valve stenosis with associated severe left ventricular systolic dysfunction. He would best be served by coronary bypass grafting and surgical aortic valve replacement. However, his last dose of Plavix was on 10/13/23, so surgery will be postponed to allow sufficient time for the Plavix to washout. Surgery is tentatively scheduled for 10/17/23. In the meantime he will be maintained on a heparin infusion for anticoagulation. Continue aspirin, atorvastatin, and metoprolol. If he develops new chest pain will start a nitroglycerin infusion. Nephrology has been consulted for management of his peritoneal dialysis. Diabetes management per the hospitalist team. See Dr. Valero's attestation for additional surgical details. LESLY Lynn Cosigned by Jaqueline Valero MD at 10/15/2023 10:55 AM BUILDING ADMIN DING ADMIN DING ADMIN DING ADMIN DING ADMIN * Kash Prattian Favian, - 10/14/2023 12:11 AM CST [facility] Hospitalist Service History and Physical Encounter date: 10/14/23 PCP: Aditya Correa MD Chief Complaint: CAD HPI: has a past medical history of CAD (coronary artery disease), Chest pain, Diabetes mellitus ([facility]), Diabetes mellitus type I ([facility]), Dialysis patient ([facility]) (HCC), ESRD on dialysis ([facility]) ([facility]), GERD (gastroesophageal reflux disease), Hyperlipidemia, Hypertension, Sleep apnea, and SOB (shortnessof breath). He has no past medical history of Motion sickness or PONV (postoperative nausea and vomiting). 53-year-old gentleman with history of type 1 diabetes mellitus on insulin pump, CHF, CAD, ESRD on peritoneal dialysis initially presented to [facility] on October 09 for symptoms of general malaise for the past 4 days prior to admission. Patient was having symptoms of nausea with dry heaves. He presented hemodynamically stable. His glucose was measured to be 584, beta hydroxybutyrate 2.9 with an anion gap of 19. Patient was transferred to the ICU for insulin dripand DKA management. During this hospitalization his troponin was measured to be elevated prompting a cardiology consultation which lead to a [facility]. Results were notable for severe CAD and he was recommended to seek surgical revascularization evaluation prompting transfer to this facility. Upon evaluation of the patient he is resting comfortably in bed sitting up. He denies chest pain, SOB, N/V. He feels well and is in no discomfort. He understands he will likely be here for a number of days for CABG consideration. Past Medical History: Diagnosis Date CAD (coronary artery disease) Chest pain Diabetes mellitus ([facility]) Diabetes mellitus type I ([facility]) Dialysis patient ([facility]) ([facility]) ESRD on dialysis ([facility]) ([facility]) GERD (gastroesophageal reflux disease) Hyperlipidemia Hypertension Sleep apnea SOB (shortness of breath) Past Surgical History: Procedure Laterality Date APPENDECTOMY Appendectomy APPENDECTOMY CENTRAL LINE PLACEMENT > 5 YEARS N/A 06/18/2022 CORONARY ANGIOPLASTY WITH STENT PLACEMENT FEMUR SURGERY KNEE SURGERY knee surgery OPEN REDUCTION INTERNAL FIXATION ORIF OTHER SURGICAL HISTORY eye surg-vitrectomy Social History Tobacco Use Smoking status: Never Smokeless tobacco: Former Substance and Sexual Activity Drug use: No Sexual activity: Defer Alcohol Use: Not At Risk (06/07/2022) AUDIT-C Frequency of Alcohol Consumption: Monthly or less Average Number of Drinks: 3 or 4 Frequency of Binge Drinking: Never Family History Family History Problem Relation Age of Onset Heart attack Father Allergies Allergen Reactions Allopurinol Other (See comments) [...] Rash Iodinated Diagnostic Agents Ticagrelor Rash Rash HOME MEDICATIONS : acetaminophen 500 mg capsule aspirin 81 mg enteric coated tablet atorvastatin (LIPITOR) 80 mg tablet calcitRIOL (ROCALTROL) 0.25 mcg capsule calcium acetate,phosphat bind, (PHOSLO) 667 mg capsule cetirizine (ZyrTEC) 10 mg tablet cholecalciferol (VITAMIN D-3) 2000 unit tablet clopidogrel (PLAVIX) 75 mg tablet EZETIMIBE ORAL insulin lispro (HumaLOG, ADMELOG) 100 unit/mL vial for injection isosorbide mononitrate ER (IMDUR) 30 mg 24 hr tablet metoprolol (LOPRESSOR) 100 mg tablet omeprazole (PriLOSEC) 20 mg capsule losartan (COZAAR) 25 mg tablet pen needle, diabetic (BD Ultra-Fine Short Pen Needle) 31 gauge x 5/16 needle ROS: Pt denies significant weight loss, fever/ chills, vision/ auditory changes. Denies SOB/ cough. Denies palpitations, chest pain, Denies abdominal pain, nausea, vomiting, diarrhea. Denies dysuria, urinary incontinence, urinary frequency. Denies myalgia/ joint pain. Denies rash. Denies headache, syncope Vitals: Vitals: 10/13/23 2322 BP: 141/89 BP Location: Right arm Patient Position: Sitting Pulse: 69 Resp: 18 Temp: 36.4 ??C (97.5 ??F) TempSrc: Oral SpO2: 95% Weight: 123.1 kg (271 lb 6.2 oz) Height: 177.8 cm (5' 10 ) Body mass index is 38.94 kg/m??. Physical exam: GEN: NAD. PSYCH: Good Judgment. AOx3. Normal memory, mood, and affect. HEENT: -Head: NC/AT; -Eyes: No discharge or redness; -Ears: External ears are normal. -Nose: Normal nares. -Mouth and throat: MMM. Normal gums, mucosa, palate,. Good dentition. CV: RRR, no m/r/g. LUNGS: faint inspiratory crackles. No signs of respiratory distress on room air ABD: Soft, NT/ND, NBS, no masses or organomegaly. : N/A SKIN: Warm, well perfused. No skin rashes or abnormal lesions. MSK: Normal gait. No deformities. EXT: No clubbing, cyanosis, 2+ BLE edema NEURO: Ambulating with no limitations. No focal deficits. Recent Labs No results found for: TROPONINT Radiology/Diagnostics: See HPI Assessment/Plan: Principal Problem: CAD in [place] artery CAD -Left heart catheterization done on October 13 for elevated troponin, mild chest pressure resulted in findings of ???right coronary dominant circulation with severe multivessel coronary disease including 90% proximal LAD stenosis, 99% ostial circumflex stenosis followed by 90% stenosis at the bifurcation of the circumflex trunk with the OM branch. 99% stenosis in the mid right coronary artery that was stented in remote past this represents significant progressive disease compared to May of 2022.?? -currently denies chest pain -continue heparin drip -NPO with ice chips -CT surgery aware of consultation Type 1 diabetes mellitus DKA -transitioned off insulin drip at OSH and glucose has since been controlled with basal/bolus regimen at outside hospital -etiology of DKA thought to be secondary to Omnipod insulin pump malfunction as patient states thatthe automatic mode continued to default into manual mode which he is not as familiar with -point of care glucose in the 500s right now. Obtaining stat labs to assess if patient is in DKA again. Acute hypoxic respiratory failure Systolic heart failure exacerbation -resolved. Thought to be secondary to decompensated heart failure and ESRD. -patient received Lasix 80 mg IV b.i.d.. As of earlier yesterday it was determined that CHF exacerbation had resolved. Patient no longer requiring supplemental nasal cannula BEN -intermittent compliance with CPAP ESRD on peritoneal dialysis -nephrology consultation in the a.m. -patient does still make urine Paroxysmal atrial fibrillation -holding home Eliquis. Continue heparin drip Hypertension Full Code Expect 2 midnight admission Vinay Pratt DO DING ADMIN DING ADMIN documented in this encounter Procedure Notes * Gamal Fox, ROBERTO - 10/18/2023 6:49 PM CSTAssociated Order(s): Critical Care Post-Procedure Diagnose(s): CAD in [place] artery Day time events ASA Low dose Heparin Warfarin DC D5LR Continue PD Phoslo restart Home PPI AAI 80 CHEMICAL ENGINEERING INTERN to 4 --->3 DC PAC/cordis Vaso weaned off Consult endo Nausea---haldol ALEX renee Hemodynamic Review HR AAI @ 80, SBP 120-130, MAP 71-87, RAP 7-12 Impression and Plan for Overnight Problems: BEN Place on nasal CPAP @ HS, prior nausea/ vomiting, avoiding full face to reduce risk of aspiration Hypertension SBP goal < 130, CHEMICAL ENGINEERING INTERN @ 3 mcg, weaning to 2 mcg w/ plans to wean q6h for Scv02 >65 PONV Given haldol during day for nausea/ vomiting, scopolamine patch added at change of shift AM labs reviewed/Updates-> Tolerating cpap, on pd cycler, hypertensive, CHEMICAL ENGINEERING INTERN weaned off, will change from AAI pacing if remainshypertensive. Assessment and plan has been reviewed with CT Surgery & ICU attending on 10/18/23. Gamal Fox NP This note may have been dictated with voice-recognition software, pet care assistant so pet care assistant errors may be present. NOTICE: The above Assessments and Plans address ongoing issues and critical acute events during thenight shift of this date. It is not intended to be a comprehensive documentation of all findings, events, Assessments, or Plans that are addressed during the Critical Care Team Daily Rounds and throughout the day. Critical Care Performed by: Gamal Fox NP Authorized by: Gamal Fox NP CRITICAL CARE: Team: [facility] CT Shift: PM Level of Billing: Critical Care My time spent with this patient was 50 minutes: Critical Provider Statement: I have seen and examined the patient on this day of service. I have reviewed and confirmed the history, physical exam, laboratory and radiologic data as documented in thesigned ICU note. I have reviewed and discussed my treatment plan with the ICU team and other medical/as400 consultant staff, making frequent assessments and decisions regarding this patient's complex medical care. Critical Care time was exclusive of time spent performing separately billed procedures, treating other patients, and teaching. This time was in addition to and separate from critical care provided by other practitioners in my group on this day of service. Critical Care was necessary to treat or prevent imminent or life-threatening deterioration of the following conditions: I spent time reviewing and interpreting data from bedside monitors, laboratory results, and imaging, I spent time documenting in the medical record and I spent time discussing the management of this critically ill patient with consultants and the medical staff Cosigned by Kirsten Burns MD at 10/19/2023 11:50 AM BUILDING ADMIN DING ADMIN DING ADMIN * Gamal Fox NP - 10/17/2023 6:42 PM CSTAssociated Order(s): Critical Care Post-Procedure Diagnose(s): CAD in [place] artery Physical exam: intubated, sedated, perrl A paced, signals doppled to BLE Orally intubated, Lungs diminished throughout NPO, abdomen obese, soft, absent bowel sounds, OGT to LIWS R leg w/ SVG site COLLECTION MANAGER, wound vac to sternum R rad AL, RIJ PAC/QLC Day time events Keep intubated and sedated tonight Ca+ DDAVP Keep CHEMICAL ENGINEERING INTERN 1 PRBC, 2 FFP Plan for PD tonight D5LR 20 , keep insulin drip on RR to 18 50 Protamine Amicar 75mg/kg Hemodynamic Review HR A pace @ 90, SBP 99-107, MAP 50-59, MINESH 23-26, RAP 7-8 SVR 580-700, CI 2.1-2.8 Impression and Plan for Overnight Problems: Hypotension Acute blood loss anemia Given products post operatively d/t chest tube output, repeat CBC w/ hgb 8- given 1u prbc's for symptomatic anemia - post transfusion w/ hemoglobin up to 8.8, lactate normal 1 gram calcium given for hypocalemia 2 grams Mag given for ectopy Acute respiratory insufficiency Intubated on minimal vent settings, am cxr pending, no plans for PSV overnight AM labs reviewed/Updates-> 0200- less oozy from R leg SVG site, some ooziness from lines, chest tube output minimal. . Remainson insulin gtt for glycemic control in setting of Type 1 DM post operatively. Am hemoglobin 8.5, fibrinogen 435, chest tube output minimal, low dose dual pressors w/ stable CI Assessment and plan has been reviewed with CT Surgery & ICU attending on 10/17/23. Gamal Fox NP This note may have been dictated with voice-recognition software, pet care assistant so pet care assistant errors may be present. NOTICE: The above Assessments and Plans address ongoing issues and critical acute events during thenight shift of this date. It is not intended to be a comprehensive documentation of all findings, events, Assessments, or Plans that are addressed during the Critical Care Team Daily Rounds and throughout the day. Critical Care Performed by: Gamal Fox NP Authorized by: Gamal Fox NP CRITICAL CARE: Team: [facility] Shift: PM Level of Billing: Critical Care My time spent with this patient was 80 minutes: Critical Provider Statement: I have seen and examined the patient on this day of service. I have reviewed and confirmed the history, physical exam, laboratory and radiologic data as documented in thesigned ICU note. I have reviewed and discussed my treatment plan with the ICU team and other medical/as400 consultant staff, making frequent assessments and decisions regarding this patient's complex medical care. Critical Care time was exclusive of time spent performing separately billed procedures, treating other patients, and teaching. This time was in addition to and separate from critical care provided by other practitioners in my group on this day of service. Critical Care was necessary to treat or prevent imminent or life-threatening deterioration of the following conditions: I spent time reviewing and interpreting data from bedside monitors, laboratory results, and imaging, I spent time documenting in the medical record and I spent time discussing the management of this critically ill patient with consultants and the medical staff Cosigned by Kirsten Burns MD at 10/18/2023 9:16 AM BUILDING ADMIN DING ADMIN DING ADMIN documented in this encounter Consult Notes * Loraine Medina RN - 10/23/2023 12:00 PM CST Juvenal Garvin Jr. [id number] Jaqueline Valero MD Pre-Education Assessment Units of Service: 1 Visit Type: Follow up Introduction: ID verified, Alert/ oriented x 4, Patient present for education Treatment Prior To Admission: Diet, Blood glucose monitoring, Insulin Knowledge Base: Experienced Hemaglobin A1c: Knows value Home Testing: Greater than 2 times per day Adherence To: Insulin regimen, Blood Glucose Testing Regimen, Seldom misses Exercise Habits: Sedentary Hypoglycemia: Hardly ever Home Supplies: No assistance needed Diabetes Management Education Provided: Please see the Patient Education Activity Name: Juvenal Garvin Jr. : 1970 Room/Bed: [place] [address]/[address] Patient has had diabetes for NUMEROUS years. Follows with DR SIMONA ESTRELLA for diabetes care. Patient has been on pump therapy for 2 years. Alert and oriented - cognitively able to self-manage insulin pump. Agreement signed and logs at bedside. Understands that hospital glucometer will be used to dose pump. Most recent A1C: Lab Results Component Value Date HGBA1C 8.1 (H) 10/16/2023 Pump Poultry Husbandman: OMNIPOD Insulin Brand: NOVOLIN Does patient have supplies with them?: YES Bolus Wizard On?: YES INSULIN PUMP SETTINGS Total Daily Basal (TDB): 54 Basal Rates: 0000: 3.0 0800: 1.5 2000: 3.0 Insulin to Carb Ratio: 1:9 Sensitivity: 25 Target: 120 Active Insulin Time (AIT): 4 HOURS Thank you for this consult, Loraine Medina RN, Veneer Jointer Returner 10/23/2023 12:44 PM DING ADMIN * Loraine Medina RN - 10/20/2023 10:45 AM CSTAssociated Order(s): IP CONSULT TO VEGETABLE CUTTER Juvenal Garvin Jr. [id number] [place] [id number] Jaqueline Valero MD Pre-Education Assessment Units of Service: 2 Visit Type: Initial Introduction: ID verified, Alert/ oriented x 4, Patient present for education Treatment Prior To Admission: Diet, Blood glucose monitoring, Insulin Hemaglobin A1c: Knows value Home Testing: Greater than 2 times per day Adherence To: Diet, Carb counting, Misses greater than 2 times per week Exercise Habits: Sedentary Hypoglycemia: Hardly ever Home Supplies: No assistance needed Diabetes Management Education Provided: Please see the Patient Education Activity Patient transferred to PCU this am. Patient sitting in recliner and is very pleasant upon approach.Patient s/p CABG x3. Patient also has a history of DM-1. Patient on Omnipod insulin pump in home setting. Patient does have supplies here if Endo decides to resume pump while inpatient. Patient also uses Dexcom G6 for glucose monitoring. Patient does have G6 transmitter and sensor here if needed. Current A1c is 8.1. Diet: Patient stated he is not as diligent as he should be with maintaining a carb consistent diet.Patient voiced eating fast food frequently out of convenience and not really sticking to his diet regimen. Patient lives with 18 year old son who does help when needed. Patient stated he struggles with food prep. Discussed healthier food options and well rounded meals that include lean proteins, non starchy veggies and a serving of carbs. Patient voiced being knowledgeable regarding diet, just needs to be more conscious of his intake and making better food choices. Blood glucose monitoring: Patient uses Dexcom G6 for monitoring and has a sample in belongings if needed. Patient denies having hypoglycemic events in home setting while using pump. Medication:Patient uses Omnipod in home setting. Pump ins not being used currently while inpatient.Patient stated he has discussed with Endo to possibly apply later when appropriate. Patient has been using basal/bolus and subq injections for the last few weeks due to pump malfunction. Patient wants to use insulin pump if possible. Does follow closely with outpatient Endo for guidance. Will continue to follow if pump is applied during inpatient stay. No further questions or concerns at this time. Loraine Medina, LUAN, Veneer Jointer Returner 10/20/2023 11:27 AM DING ADMIN * Augustin Bethea MD - 10/18/2023 10:51 AM CSTAssociated Order(s): IP CONSULT TO ENDOCRINOLOGY Endocrine Diabetes Consult Reason for Consult: type 1 DM post op, insulin pump at home. uncontrolled, ESRD on PD Subjective Patient is a 53 y.o. male with chief complaint of Uncontrolled type 1 diabetes post CABG setting, end-stage renal disease on peritoneal dialysis HPI: Patient has significant past medical history of type 1 diabetes, on insulin pump at home, end-stagerenal disease on peritoneal dialysis. He came to an outside hospital with generalized weakness, further workup was noted to show that haddiabetic ketoacidosis, elevated cardiac enzymes. Further evaluation with [facility] revealed multivessel coronary artery disease. Patient transferred to [facility] for CABG. Patient underwent CABG x 3, mechanical AVR . Endocrine diabetes management. Hemoglobin A1c noted to be 8.1% 10/14, Patient has an insulin pump at home, not review his setting as the pump not available bedside. Patient continues to be confused and could not provide any history From endocrinology note in the past at [facility] 2021: BASAL RATE TOTAL BASAL DAILY DOSE: 65.85 units 0330 1.7 units/hour 0800 0.8 units/hour 2000 5.8 units/hour ICR: 1:6.5 SENSITIVITY: 1:25 IAT: 4 hours TARGET: 120 Nephrology also following patient with end-stage renal disease, yesterday had peritoneal dialysis. Past Medical History: Diagnosis Date CAD (coronary artery disease) Chest pain Diabetes mellitus (HCC) Diabetes mellitus type I (HCC) Dialysis patient (HCC) ESRD on dialysis (HCC) GERD (gastroesophageal reflux disease) Hyperlipidemia Hypertension Sleep apnea SOB (shortness of breath) Past Surgical History: Procedure Laterality Date APPENDECTOMY Appendectomy APPENDECTOMY CENTRAL LINE PLACEMENT > 5 YEARS N/A 06/18/2022 CORONARY ANGIOPLASTY WITH STENT PLACEMENT FEMUR SURGERY KNEE SURGERY knee surgery OPEN REDUCTION INTERNAL FIXATION ORIF OTHER SURGICAL HISTORY eye surg-vitrectomy Medications Prior to Admission Medication Sig Dispense Refill Last Dose acetaminophen 500 mg capsule Take 2 capsules (1,000 mg total) by mouth every 6 (six) hours as needed for pain 30 tablet 1 Past Week aspirin 81 mg enteric coated tablet Take 1 tablet (81 mg total) by mouth daily Past Week atorvastatin (LIPITOR) 80 mg tablet Take 1 tablet (80 mg total) by mouth daily 10/12/2023 calcitRIOL (ROCALTROL) 0.25 mcg capsule Take 1 capsule (0.25 mcg total) by mouth daily 10/12/2023 calcium acetate,phosphat bind, (PHOSLO) 667 mg capsule Take 1 capsule (667 mg total) by mouth 4 (four) times a day (with meals and nightly) With meals and snack 10/12/2023 cetirizine (ZyrTEC) 10 mg tablet Take 1 tablet (10 mg total) by mouth daily as needed for allergies10/12/2023 cholecalciferol (VITAMIN D-3) 2000 unit tablet Take 25 tablets (50,000 Units total) by mouth once aweek Past Week clopidogrel (PLAVIX) 75 mg tablet TAKE 1 TABLET BY MOUTH DAILY 90 tablet 0 10/12/2023 colchicine (COLCRYS) 0.6 mg tablet Take 1 tablet (0.6 mg total) by mouth 3 (three) times a week Monday, Monday, Monday10/12/2023 EZETIMIBE ORAL Take 10 mg by mouth daily 10/12/2023 famotidine (PEPCID) 40 mg tablet Take 0.5 tablets (20 mg total) by mouth nightly 10/12/2023 gemfibroziL (LOPID) 600 mg tablet Take 1 tablet (600 mg total) by mouth 2 (two) times a day before breakfast and lunch 10/12/2023 icosapent ethyL (VASCEPA) 1 gram capsule Take 2 capsules (2 g total) by mouth 2 (two) times a day 10/12/2023 insulin lispro (HumaLOG, ADMELOG) 100 unit/mL vial for injection THIS IS FOR THE INSULIN PUMP: Continue Omnipod 5 insulin pump with Mpayy G6 CGM at home settings: TIME BASAL RATE TOTAL BASAL DAILY DOSE: 65.85 0330 1.7 units/hour 0800 0.8 units/hour 2000 5.8 units/hour 10/12/2023 isosorbide mononitrate ER (IMDUR) 30 mg 24 hr tablet TAKE 1 TABLET BY MOUTH EVERY DAY 90 tablet 0 10/12/2023 metoprolol (LOPRESSOR) 100 mg tablet Take 1 tablet (100 mg total) by mouth every 12 (twelve) hours 10/12/2023 NIFEdipine (NIFEdipine XL) 90 mg 24 hr tablet Take 1 tablet (90 mg total) by mouth daily 10/12/2023 omeprazole (PriLOSEC) 20 mg capsule Take 1 capsule (20 mg total) by mouth daily 10/12/2023 potassium chloride ER 10 mEq CR tablet Take 2 tablet/capsule (20 mEq total) by mouth nightly 10/12/2023 ranolazine ER (RANEXA) 500 mg 12 hr tablet Take 1 tablet (500 mg total) by mouth 2 (two) times a day 10/12/2023 losartan (COZAAR) 25 mg tablet Take 0.5 tablets (12.5 mg total) by mouth daily 15 tablet 11 pen needle, diabetic (BD Ultra-Fine Short Pen Needle) 31 gauge x 5/16 needle U ONE PEN NEEDLE TO INJ INSULIN SC QID (Patient not taking: Reported on 10/14/2023) Not Taking Allergies Allergen Reactions Allopurinol Other (See comments) [...] Rash Iodinated Diagnostic Agents Ticagrelor Rash Rash Social History Tobacco Use Smoking status: Never Smokeless tobacco: Former Substance and Sexual Activity Drug use: No Sexual activity: Defer Alcohol Use: Not At Risk (06/07/2022) AUDIT-C Frequency of Alcohol Consumption: Monthly or less Average Number of Drinks: 3 or 4 Frequency of Binge Drinking: Never Family History Problem Relation Age of Onset Heart attack Father Review of Systems: Review of systems per HPI and otherwise all other systems are negative Objective Vitals: 24hr Min/Max: Temp Min: 36.2 ??C (97.2 ??F) Max: 37.4 ??C (99.3 ??F) Pulse Min: 80 Max: 98 BP Min: 97/36 Max: 104/37 Resp Min: 0 Max: 24 SpO2 Min: 92 % Max: 100 % Most Recent : Vitals: 10/18/23 1024 BP: Pulse: 80 Resp: 16 Temp: SpO2: 99% I/O last 2 completed shifts: In: 6751 [I.V.:3674; Blood:2330; NG/GT:122; IV Piggyback:625] Out: 6905 [Urine:240; Emesis/NG output:150; Drains:470; Other:4000; Blood:1000; Chest Tube:1045] I/O this shift: In: - Out: 1349 [Urine:60; Other:1279; Chest Tube:10] Physical Exam: General appearance: appears stated age and cooperative Lungs: clear to auscultation bilaterally Heart: regular rate and rhythm, S1, S2 normal, no murmur, click, rub or gallop Abdomen: soft, non-tender; bowel sounds normal; no masses, no organomegaly Lab/Radiology/Diagnostic Review: Laboratory review: POC Glucose: Lab Results Component Value Date GLUCOSE 92 10/18/2023 GLUCOSE 174 10/18/2023 Latest Reference Range & Units Most Recent Hgb A1C 4.0 - 5.6 % 8.1 (H) 10/16/23 15:27 (H): Data is abnormally high Assessment /Plan Principal Problem: CAD in [place] artery 1. Uncontrolled type 1 diabetes, A1c noted to be 8.1% 10/14, Off insulin pump, Continued on IV insulin in the immediate CABG setting, Just extubated, NPO for now. 2. End-stage renal disease on peritoneal dialysis, Nephrology planning to see patient, will discuss plans with peritoneal dialysis versus hemodialysis. Discussed with CVR team. This note was transcribed using Speech Recognition software. May contain unintended grammar and spelling errors. If there are any questions or major errors, please contact me. Thank you for allowing us to participate in the care of this patient. We will continue to follow. If you have any questions, please don't hesitate to call. Augustin Bethea MD [email or web address] Office phone: [phone] Office fax: [phone] DING ADMIN DING ADMIN * Fernandez Carranza MD - 10/14/2023 3:27 PM CSTAssociated Order(s): IP CONSULT TO NEPHROLOGY Images from the original note were not included. Nephrology Juvenal Garvin Jr. - 1970 Primary : Aditya Correa MD History and interval events: 53-year-old gentleman with history of type 1 diabetes mellitus on insulin pump, CHF, CAD, ESRD on peritoneal dialysis initially presented to [facility] in [facility] on October 09 for symptoms of general malaise for the past 4 days prior to admission. Patient was having symptoms of nausea with dry heaves. He presented hemodynamically stable. His glucose was measured to be 584, beta hydroxybutyrate 2.9 with an anion gap of 19. Patient was transferred to the ICU for insulin dripand DKA management. During this hospitalization his troponin was measured to be elevated prompting a cardiology consultation which lead to a C. Results were notable for severe CAD and he was recommended to seek surgical revascularization evaluation prompting transfer to this facility. He missed his peritoneal dialysis last evening during transfer. He has been on peritoneal dialysis for approximately 2 years and tolerating this well under the care of Dr. Reyes. He does make some urine. Medication: Current medication list reviewed Past History: PMX, PSX, FamHx, and SocHx are documented in EPIC and have been reviewed. Intake and Output Summary: Intake/Output Summary (Last 24 hours) at 10/14/2023 1527 Last data filed at 10/14/2023 0254 Gross per 24 hour Intake 500 ml Output -- Net 500 ml Vital Signs: Vitals: 10/14/23 1459 BP: Pulse: 56 Resp: Temp: SpO2: Physical Exam: General Youngish man sitting up in bed no acute distress H&N No visible JVD Eyes Pupils symmetrical with no scleral icterus Chest Bibasilar inspiratory crackles Heart S1-S2 regular Abdomen Soft and non tender PD catheter in situ Extremeties Pitting lower extremity edema Skin No rash Neuro Nonfocal Mental status Alert and conversant CBC: Recent Labs Lab Units 10/14/23 0104 WBC K/cumm 6.2 HEMOGLOBIN g/dL 9.4* HEMATOCRIT % 29.0* PLATELETS K/cumm 357 RFP: Recent Labs Lab Units 10/14/23 0553 10/14/23 0104 SODIUM mmol/L 131* 130* POTASSIUM PLASMA mmol/L 4.3 4.3 CHLORIDE mmol/L 92* 90* CO2 mmol/L 23 21* BUN SERUM mg/dL 75* 66* CREATININE mg/dL 10.22* 10.57* CALCIUM mg/dL 9.0 9.2 ALBUMIN g/dL -- 3.4* Impression and Recommendations: 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 Mclouth, LESLY Givens MD Justin Krafft, PA Derek Larson, MD FASN Rose Mattli, NP Rohan Devanpalli, MD Candace Shirley, NP [address] - [address] [place], [place] [address] [phone] Office [phone] - Fax DING ADMIN DING ADMIN * Guerline Rodriguez PA - 10/14/2023 2:10 PM CSTAssociated Order(s): IP CONSULT TO CARDIOTHORACIC SURGERY Cardiothoracic Surgery Consultation Patient Name: Juvenal Garvin Jr. Admit Date: 10/13/2023 Admitting Provider: Julio Lopez DO Chief Complaint Multivessel coronary artery disease, aortic valve stenosis History of Present Illness Juvenal Garvin is a 53-year-old male who has been transferred to [facility] for consideration of coronary artery bypass grafting and aortic valve replacement. His past medical history includes severe CAD with previous PCI, paroxysmal atrial fibrillation, type 1 diabetes mellitus, ESRD on peritoneal dialysis, hypertension, hyperlipidemia, and sleep apnea. He presented to [facility] in [place], [place] on 10/09/23 complaining of fatigue, malaise, and shortness of breath for about 3-4 days prior. His blood glucose levels were significantly elevated > 500 and he had an anion gap of 19 on his labs. He was admitted there for management of DKA. Additionally he noted some chest discomfort symptoms, so cardiac troponin levels were drawn which were abnormal. An echocardiogram was obtained that showed moderately severe aortic valve stenosis with a LVEF 25-30%. He subsequently had a cardiac catheterization on 10/13/23 that demonstrated severe multivessel coronary artery disease, the aortic valve was not crossed during the catheterization. He has been transferred to [facility] for consideration of coronary artery bypass and aortic valve replacement. He had been receiving Eliquis and Plavix up until transfer to [facility]. Since arrival here he denies any additional chest pain episodes. His glucose levels continue to fluctuate but have reasonably controlled today. Past Medical History: Diagnosis Date CAD (coronary artery disease) Chest pain Diabetes mellitus (HCC) Diabetes mellitus type I (HCC) Dialysis patient ([facility]) (HCC) ESRD on dialysis ([facility]) (HCC) GERD (gastroesophageal reflux disease) Hyperlipidemia Hypertension Sleep apnea SOB (shortness of breath) Past Surgical History: Procedure Laterality Date APPENDECTOMY Appendectomy APPENDECTOMY CENTRAL LINE PLACEMENT > 5 YEARS N/A 06/18/2022 CORONARY ANGIOPLASTY WITH STENT PLACEMENT FEMUR SURGERY KNEE SURGERY knee surgery OPEN REDUCTION INTERNAL FIXATION ORIF OTHER SURGICAL HISTORY eye surg-vitrectomy Family History Problem Relation Age of Onset Heart attack Father Social History Tobacco Use Smoking status: Never Smokeless tobacco: Former Substance and Sexual Activity Drug use: No Sexual activity: Defer Alcohol Use: Not At Risk (06/07/2022) AUDIT-C Frequency of Alcohol Consumption: Monthly or less Average Number of Drinks: 3 or 4 Frequency of Binge Drinking: Never Current Medications Current Facility-Administered Medications: acetaminophen (TYLENOL) tablet 650 mg, 650 mg, oral, Q4H PRN, Julio Lopez DO ALPRAZolam (XANAX) tablet 1 mg, 1 mg, oral, TID PRN, Frank Cody MD aspirin enteric coated tablet 81 mg, 81 mg, oral, Daily, Vinay Pratt DO, 81 mg at 10/14/23 0852 atorvastatin (LIPITOR) tablet 80 mg, 80 mg, oral, Daily, Vinay Pratt DO, 80 mg at 10/14/23 0844 bisacodyL (DULCOLAX) suppository 10 mg, 10 mg, rectal, Daily PRN, Julio Lopez DO calcitRIOL (ROCALTROL) capsule 0.25 mcg, 0.25 mcg, oral, Daily, Vinay Prtat DO, 0.25 mcg at 10/14/23 0844 Carrier Fluids for Secondary Infusion - 0.9% Sodium Chloride, 30 mL, intravenous, PRN, Julio Lopez DO [Held by Provider] clopidogreL (PLAVIX) tablet 75 mg, 75 mg, oral, Daily, Vinay Pratt DO [START ON 10/16/2023] colchicine (COLCRYS) tablet 0.6 mg, 0.6 mg, oral, Once per day on Monday, Vinay Pratt DO dextrose (GLUTOSE) 40 % gel 15 g, 15 g, oral, Q15 Min PRN OR dextrose (D10W) 10% bolus 250 mL, 250 mL, intravenous, Q15 Min PRN, Vinay Pratt DO ergocalciferol (VITAMIN D) capsule 50,000 Units, 50,000 Units, oral, Weekly, Frank Cody MD, 50,000 Units at 10/14/23 1228 ezetimibe (ZETIA) tablet 10 mg, 10 mg, oral, Daily, Vinay Pratt DO, 10 mg at 10/14/23 0844 famotidine (PEPCID) tablet 20 mg, 20 mg, oral, Nightly, Vinay Pratt DO gemfibroziL (LOPID) tablet 600 mg, 600 mg, oral, BID AC (bkfst, lunch), Vinay Pratt DO, 600 mg at 10/14/23 1229 glucagon injection 1 mg, 1 mg, intramuscular, Q30 Min PRN, Vinay Pratt DO heparin 5,000 unit/mL injection 2,000 Units, 2,000 Units, intravenous, Q6H PRN OR heparin 5,000unit/mL injection 3,000 Units, 3,000 Units, intravenous, Q6H PRN, Vinay Pratt DO heparin in 0.45% sodium chloride 25,000 units/250 mL (100 units/mL) infusion (premix), 0-33 Units/kg/hr, intravenous, Titrated, Vinay Pratt DO, Last Rate: 11.2 mL/hr at 10/14/23 0710, 9.1 Units/kg/hr at 10/14/23 0710 insulin glargine (LANTUS, SEMGLEE) 100 unit/mL injection 15 Units, 15 Units, subcutaneous, QAM, Frank Cody MD, 15 Units at 10/14/23 1004 insulin lispro (HumaLOG, ADMELOG) 100 unit/mL injection 0-10 Units, 0-10 Units, subcutaneous, TID with meals, Frank Cody MD, 5 Units at 10/14/23 1228 insulin lispro (HumaLOG, ADMELOG) 100 unit/mL injection 5 Units, 5 Units, subcutaneous, TID with meals, Frank Cody MD, 5 Units at 10/14/23 1004 isosorbide mononitrate ER (IMDUR) extended release tablet 60 mg, 60 mg, oral, Daily, Vinay Pratt, , 60 mg at 10/14/23 0845 metoprolol tartrate (LOPRESSOR) immediate release tablet 50 mg, 50 mg, oral, Q12H, Vinay Pratt, DO, 50 mg at 10/14/23 0217 NIFEdipine (PROCARDIA XL/ADALAT CC) extended release tablet 90 mg, 90 mg, oral, Daily, Vinay Pratt, , 90 mg at 10/14/23 0844 ondansetron ODT (ZOFRAN-ODT) disintegrating tablet 4 mg, 4 mg, oral, Q6H PRN OR ondansetron (ZOFRAN) injection 4 mg, 4 mg, intravenous, Q6H PRN, Julio Lopez DO pantoprazole DR (PROTONIX) extended release tablet 40 mg, 40 mg, oral, Daily, Vinay Pratt, , 40 mg at 10/14/23 0844 ramelteon (ROZEREM) tablet 8 mg, 8 mg, oral, Nightly PRN, Julio Lopez DO ranolazine ER (RANEXA) extended release tablet 500 mg, 500 mg, oral, BID, Vinay Pratt, , 500 mg at 10/14/23 0844 sodium chloride 0.9% flush 0.5-20 mL, 0.5-20 mL, intra-catheter, Q8H ASHLEY, Julio Lopez DO, 10 mL at 10/14/23 0105 sodium chloride 0.9% flush 0.5-20 mL, 0.5-20 mL, intra-catheter, PRN, Julio Lopez DO Allergies Allopurinol, Chlorhexidine, Chlorhexidine gluconate, Contrast dye [iodinated contrast media], Other, and Ticagrelor Review of Systems General ROS: positive for - fatigue and malaise negative for - chills, fever, or night sweats ENT ROS: negative for - epistaxis or oral lesions Hematological and Lymphatic ROS: negative for - blood clots Endocrine ROS: positive for - polydipsia/polyuria Respiratory ROS: positive for - shortness of breath negative for - cough, hemoptysis, or wheezing Cardiovascular ROS: positive for - chest pain, edema, and shortness of breath negative for - loss of consciousness or palpitations Gastrointestinal ROS: positive for - nausea/vomiting negative for - blood in stools, diarrhea, or melena Genito-Urinary ROS: no dysuria, trouble voiding, or hematuria Neurological ROS: no TIA or stroke symptoms Dermatological ROS: negative for rash Physical Exam Vitals: 10/14/23 1200 BP: 114/71 Pulse: Resp: 20 Temp: 36.5 ??C (97.7 ??F) SpO2: 93% General Inspection: alert; pleasant affect; no apparent distress Neck: supple without lymphadenopathy or thyromegaly; no overt jugular venous distention; no carotidbruits Lungs: clear to auscultation bilaterally Heart: regular rate and rhythm; soft 1/6 murmur at the LUSB Abdomen: bowel sounds positive; soft,non-tender, non-distended; PD catheter present Extremities: minimal lower extremity edema; peripheral pulses 2+ bilaterally Neurologic: cranial nerves II-XII grossly intact; no focal neuromuscular deficit; alert and oriented x 3 Laboratory / Radiology / Diagnostic Data Recent Results (from the past 24 hour(s)) POCT glucose Collection Time: 10/13/23 11:25 PM Result Value Ref Range Glucose, POC 534 (Critical) 70 - 140 mg/dL Glucose comment 1 Glu2: Comprehensive metabolic panel Collection Time: 10/14/23 1:04 AM Result Value Ref Range Sodium 130 (L) 135 - 145 mmol/L Potassium, pl 4.3 3.3 - 4.9 mmol/L Chloride 90 (L) 97 - 110 mmol/L CO2 21 (L) 22 - 32 mmol/L Anion gap 19 (H) 2 - 15 mmol/L BUN 66 (H) 6 - 25 mg/dL Creatinine 10.57 (H) 0.80 - 1.30 mg/dL Glucose 453 (Critical) 70 - 199 mg/dL Calcium 9.2 8.5 - 10.3 mg/dL Bilirubin, total 0.3 0.1 - 1.2 mg/dL Protein, pl 6.4 (L) 6.5 - 8.5 g/dL Albumin 3.4 (L) 3.5 - 5.0 g/dL Alk phos 98 40 - 130 Units/L ALT 21 7 - 55 Units/L AST 28 10 - 50 Units/L CBC with auto differential Collection Time: 10/14/23 1:04 AM Result Value Ref Range WBC 6.2 3.8 - 9.9 K/cumm Hgb 9.4 (L) 13.0 - 17.5 g/dL Hct 29.0 (L) 38.9 - 50.3 % Plt 357 150 - 400 K/cumm MPV 11.0 9.1 - 12.3 fL RBC 3.21 (L) 4.30 - 5.80 M/cumm MCV 90.3 81.3 - 96.4 fL MCH 29.3 27.1 - 33.3 pg MCHC 32.4 32.3 - 35.7 g/dL RDW CV 13.6 11.1 - 14.9 % RDW SD 44.1 35.7 - 48.1 fL NRBC abs 0.00 0.00 - 0.01 K/cumm Protime-INR Collection Time: 10/14/23 1:04 AM Result Value Ref Range PT 13.5 10.3 - 13.7 sec INR 1.18 0.90 - 1.20 aPTT Collection Time: 10/14/23 1:04 AM Result Value Ref Range aPTT 68 (H) 28 - 38 sec Differential, auto Collection Time: 10/14/23 1:04 AM Result Value Ref Range Neutrophil abs 4.8 1.5 - 6.5 K/cumm Imm gran abs 0.1 0.0 - 0.1 K/cumm Lymphocyte abs 0.7 (L) 0.8 - 3.3 K/cumm Monocyte abs 0.7 0.2 - 0.8 K/cumm Eosinophil abs 0.0 0.0 - 0.5 K/cumm Basophil abs 0.0 0.0 - 0.1 K/cumm Neutrophil pct 77.4 % Imm gran pct 1.0 % Lymphocyte pct 10.4 % Monocyte pct 11.2 % Eosinophil pct 0.0 % Basophil pct 0.0 % eGFR Collection Time: 10/14/23 1:04 AM Result Value Ref Range eGFR 5 mL/min/1.73 m2 POCT glucose Collection Time: 10/14/23 2:05 AM Result Value Ref Range Glucose, POC 425 (H) 70 - 140 mg/dL POCT glucose Collection Time: 10/14/23 3:04 AM Result Value Ref Range Glucose, POC 378 (H) 70 - 140 mg/dL POCT glucose Collection Time: 10/14/23 3:58 AM Result Value Ref Range Glucose, POC 382 (H) 70 - 140 mg/dL Basic metabolic panel Collection Time: 10/14/23 5:53 AM Result Value Ref Range Sodium 131 (L) 135 - 145 mmol/L Potassium, pl 4.3 3.3 - 4.9 mmol/L Chloride 92 (L) 97 - 110 mmol/L CO2 23 22 - 32 mmol/L Anion gap 16 (H) 2 - 15 mmol/L BUN 75 (H) 6 - 25 mg/dL Creatinine 10.22 (H) 0.80 - 1.30 mg/dL Glucose 287 (H) 70 - 199 mg/dL Calcium 9.0 8.5 - 10.3 mg/dL aPTT Collection Time: 10/14/23 5:53 AM Result Value Ref Range aPTT 56 (H) 28 - 38 sec eGFR Collection Time: 10/14/23 5:53 AM Result Value Ref Range eGFR 5 mL/min/1.73 m2 POCT glucose Collection Time: 10/14/23 5:56 AM Result Value Ref Range Glucose, POC 259 (H) 70 - 140 mg/dL POCT glucose Collection Time: 10/14/23 8:34 AM Result Value Ref Range Glucose, POC 134 70 - 140 mg/dL POCT glucose Collection Time: 10/14/23 11:06 AM Result Value Ref Range Glucose, POC 138 70 - 140 mg/dL POCT glucose Collection Time: 10/14/23 12:15 PM Result Value Ref Range Glucose, POC 140 70 - 140 mg/dL STS Operative Risk Score Procedure Type: CABG + AVR PERIOPERATIVE OUTCOME ESTIMATE % Operative Mortality 14.7% Morbidity & Mortality 38.3% Stroke 1.95% Renal Failure NA Reoperation 9.01% Prolonged Ventilation 29.4% Deep Sternal Wound Infection 1.18% Long Hospital Stay (>14 days) 33% Short Hospital Stay (<6 days)* 5.61% Assessment and Plan Juvenal Garvin is a 53-year-old male with recurrent severe multivessel coronary artery disease as well as moderately severe aortic valve stenosis with associated severe left ventricular systolic dysfunction. He would best be served by coronary bypass grafting and surgical aortic valve replacement. However, his last dose of Plavix was on 10/13/23, so surgery will be postponed to allow sufficient time for the Plavix to washout. Surgery is tentatively scheduled for 10/17/23. In the meantime he will be maintained on a heparin infusion for anticoagulation. Continue aspirin, atorvastatin, and metoprolol. If he develops new chest pain will start a nitroglycerin infusion. Nephrology has been consulted for management of his peritoneal dialysis. Diabetes management per the hospitalist team. See Dr. Valero's attestation for additional surgical details. LESLY Lynn Cosigned by Jaqueline Valero MD at 10/15/2023 10:55 AM BUILDING ADMIN DING ADMIN DING ADMIN DING ADMIN DING ADMIN Associated attestation - Jaqueline Valero MD - 10/15/2023 10:55 AM BUILDING ADMIN I have seen and examined the patient, reviewed the electronic medical record, personally reviewed the patient's cardiac catheterization, and agree with the attached history and physical. In brief, he is a 53-year-old man with a history of end-stage renal disease on peritoneal dialysis,myocardial infarction, multiple prior coronary stenting procedures, and DVT who presented to [facility] with progressive exertional shortness breath, chest pain, and hyperglycemia. Repeat cardiac catheterization there revealed progressive coronary artery disease, which is now severe in all 3main coronary arteries. His left ventricular systolic function was abnormal and an echocardiogram there revealed significant aortic valve stenosis. And severe left ventricular systolic dysfunction. He was transferred to [facility] for further workup and treatment. ASSESSMENT: 53-year-old man with a history of end-stage renal disease, coronary artery disease status post coronary stenting, myocardial infarction, and deep venous thrombosis on chronic anticoagulation who presents with acute on chronic systolic congestive heart failure, severe three-vessel coronary artery disease, and moderate aortic valve stenosis PLAN: My recommendation is to proceed this hospitalization with aortic valve replacement and coronary artery bypass grafting. I explained the operation in detail to the patient. We also discussed the options of a bioprosthetic verses a mechanical prosthesis for valve replacement . We discussed the pros and cons of each with the risk of structural valve deterioration with a bioprosthetic valve versus the need for lifelong Coumadin therapy and subsequent risk of bleeding with a mechanical prosthesis. The patient is already on chronic lifelong anticoagulation and I recommend a mechanical valve. We discussed the recovery, benefits, alternatives, and risks which include but are not limited to bleeding requiring transfusion, reoperation, infection, respiratory failure, arrhythmias, myocardial infarction, stroke, and an STS calculated perioperative risk of mortality of approximately 15%. All of the patient's questions were answered to his apparent satisfaction and he agrees to proceed as described. Surgery is currently planned for Monday. Jaqueline Valero MD Cardiothoracic Surgery [facility] * Pradeep Reeves, SENIOR CAREGIVER - 10/14/2023 12:13 PM CSTAssociated Order(s): IP CONSULT TO CARDIOLOGY Cardiology Consult - [facility] Reason For Consult: CAD Requesting Provider: Frank Cody MD SUBJECTIVE: Chief Complaint/History of Present Illness: Mr. Garvin is a 53 y/o man with hx of hypertension, dyslipidemia, diabetes, CAD s/p multiple prior PCI, ESRD, paroxysmal atrial fibrillation and DVT and BEN. The patient presented to [facility] with a complaint of hyperglycemia. He has issues with his insulin pump working appropriately andover the last day he was unable to get his blood sugar to come down. He also mentions that he has had more symptoms of shortness of breath and intermittent chest pain over the last several months. During his evaluation, troponins were drawn that were significantly elevated, and he underwent a cardiac catheterization which showed multivessel disease and also noted to have severe LV systolic dysfunction and moderate on his echo. He was transferred to [facility] for CTS evaluation. He is on a Heparin gtt at present. He denies any chest pain or shortness of breath at rest and denies any palpitations, lightheadedness and syncope. Review of Systems: Review of systems per HPI and otherwise all other systems are negative Past Medical History: Diagnosis Date CAD (coronary artery disease) Chest pain Diabetes mellitus (HCC) Diabetes mellitus type I (HCC) Dialysis patient ([facility]) (HCC) ESRD on dialysis ([facility]) (HCC) GERD (gastroesophageal reflux disease) Hyperlipidemia Hypertension Sleep apnea SOB (shortness of breath) Past Surgical History: Procedure Laterality Date APPENDECTOMY Appendectomy APPENDECTOMY CENTRAL LINE PLACEMENT > 5 YEARS N/A 06/18/2022 CORONARY ANGIOPLASTY WITH STENT PLACEMENT FEMUR SURGERY KNEE SURGERY knee surgery OPEN REDUCTION INTERNAL FIXATION ORIF OTHER SURGICAL HISTORY eye surg-vitrectomy Family History Problem Relation Age of Onset Heart attack Father Social History Tobacco Use Smoking status: Never Smokeless tobacco: Former Substance and Sexual Activity Drug use: No Sexual activity: Defer Alcohol Use: Not At Risk (06/07/2022) AUDIT-C Frequency of Alcohol Consumption: Monthly or less Average Number of Drinks: 3 or 4 Frequency of Binge Drinking: Never Allergies Allergen Reactions Allopurinol Other (See comments) [...] Rash Iodinated Diagnostic Agents Ticagrelor Rash Rash Medications Prior to Admission Medication Sig Dispense Refill Last Dose acetaminophen 500 mg capsule Take 2 capsules (1,000 mg total) by mouth every 6 (six) hours as needed for pain 30 tablet 1 Past Week aspirin 81 mg enteric coated tablet Take 1 tablet (81 mg total) by mouth daily Past Week atorvastatin (LIPITOR) 80 mg tablet Take 1 tablet (80 mg total) by mouth daily 10/12/2023 calcitRIOL (ROCALTROL) 0.25 mcg capsule Take 1 capsule (0.25 mcg total) by mouth daily 10/12/2023 calcium acetate,phosphat bind, (PHOSLO) 667 mg capsule Take 1 capsule (667 mg total) by mouth 4 (four) times a day (with meals and nightly) With meals and snack 10/12/2023 cetirizine (ZyrTEC) 10 mg tablet Take 1 tablet (10 mg total) by mouth daily as needed for allergies10/12/2023 cholecalciferol (VITAMIN D-3) 2000 unit tablet Take 25 tablets (50,000 Units total) by mouth once aweek Past Week clopidogrel (PLAVIX) 75 mg tablet TAKE 1 TABLET BY MOUTH DAILY 90 tablet 0 10/12/2023 colchicine (COLCRYS) 0.6 mg tablet Take 1 tablet (0.6 mg total) by mouth 3 (three) times a week Monday, Monday, Monday10/12/2023 EZETIMIBE ORAL Take 10 mg by mouth daily 10/12/2023 famotidine (PEPCID) 40 mg tablet Take 0.5 tablets (20 mg total) by mouth nightly 10/12/2023 gemfibroziL (LOPID) 600 mg tablet Take 1 tablet (600 mg total) by mouth 2 (two) times a day before breakfast and lunch 10/12/2023 icosapent ethyL (VASCEPA) 1 gram capsule Take 2 capsules (2 g total) by mouth 2 (two) times a day 10/12/2023 insulin lispro (HumaLOG, ADMELOG) 100 unit/mL vial for injection THIS IS FOR THE INSULIN PUMP: Continue Omnipod 5 insulin pump with [employer] G6 CGM at home settings: TIME BASAL RATE TOTAL BASAL DAILY DOSE: 65.85 0330 1.7 units/hour 0800 0.8 units/hour 2000 5.8 units/hour 10/12/2023 isosorbide mononitrate ER (IMDUR) 30 mg 24 hr tablet TAKE 1 TABLET BY MOUTH EVERY DAY 90 tablet 0 10/12/2023 metoprolol (LOPRESSOR) 100 mg tablet Take 1 tablet (100 mg total) by mouth every 12 (twelve) hours 10/12/2023 NIFEdipine (NIFEdipine XL) 90 mg 24 hr tablet Take 1 tablet (90 mg total) by mouth daily 10/12/2023 omeprazole (PriLOSEC) 20 mg capsule Take 1 capsule (20 mg total) by mouth daily 10/12/2023 potassium chloride ER 10 mEq CR tablet Take 2 tablet/capsule (20 mEq total) by mouth nightly 10/12/2023 ranolazine ER (RANEXA) 500 mg 12 hr tablet Take 1 tablet (500 mg total) by mouth 2 (two) times a day 10/12/2023 losartan (COZAAR) 25 mg tablet Take 0.5 tablets (12.5 mg total) by mouth daily 15 tablet 11 pen needle, diabetic (BD Ultra-Fine Short Pen Needle) 31 gauge x 5/16 needle U ONE PEN NEEDLE TO INJ INSULIN SC QID (Patient not taking: Reported on 10/14/2023) Not Taking OBJECTIVE: Scheduled Medications Medication Dose Route Frequency aspirin enteric coated tablet 81 mg 81 mg oral Daily atorvastatin (LIPITOR) tablet 80 mg 80 mg oral Daily calcitRIOL (ROCALTROL) capsule 0.25 mcg 0.25 mcg oral Daily [Held by Provider] clopidogreL (PLAVIX) tablet 75 mg 75 mg oral Daily [START ON 10/16/2023] colchicine (COLCRYS) tablet 0.6 mg 0.6 mg oral Once per day on Monday ergocalciferol (VITAMIN D) capsule 50,000 Units 50,000 Units oral Weekly ezetimibe (ZETIA) tablet 10 mg 10 mg oral Daily famotidine (PEPCID) tablet 20 mg 20 mg oral Nightly gemfibroziL (LOPID) tablet 600 mg 600 mg oral BID AC (bkfst, lunch) insulin glargine (LANTUS, SEMGLEE) 100 unit/mL injection 15 Units 15 Units subcutaneous QAM insulin lispro (HumaLOG, ADMELOG) 100 unit/mL injection 0-10 Units 0-10 Units subcutaneous TID withmeals insulin lispro (HumaLOG, ADMELOG) 100 unit/mL injection 5 Units 5 Units subcutaneous TID with meals isosorbide mononitrate ER (IMDUR) extended release tablet 60 mg 60 mg oral Daily metoprolol tartrate (LOPRESSOR) immediate release tablet 50 mg 50 mg oral Q12H NIFEdipine (PROCARDIA XL/ADALAT CC) extended release tablet 90 mg 90 mg oral Daily pantoprazole DR (PROTONIX) extended release tablet 40 mg 40 mg oral Daily ranolazine ER (RANEXA) extended release tablet 500 mg 500 mg oral BID sodium chloride 0.9% flush 0.5-20 mL 0.5-20 mL intra-catheter Q8H ASHLEY Continuous Medications Medication Dose Last Rate heparin in 0.45% sodium chloride 25,000 units/250 mL (100 units/mL) infusion (premix) 0-33 Units/kg/hr 9.1 Units/kg/hr (10/14/23 0710) PRN Medications Medication Dose Route Frequency Last Admin acetaminophen (TYLENOL) tablet 650 mg 650 mg oral Q4H PRN bisacodyL (DULCOLAX) suppository 10 mg 10 mg rectal Daily PRN Carrier Fluids for Secondary Infusion - 0.9% Sodium Chloride 30 mL intravenous PRN dextrose (GLUTOSE) 40 % gel 15 g 15 g oral Q15 Min PRN Or dextrose (D10W) 10% bolus 250 mL 250 mL intravenous Q15 Min PRN glucagon injection 1 mg 1 mg intramuscular Q30 Min PRN heparin 5,000 unit/mL injection 2,000 Units 2,000 Units intravenous Q6H PRN Or heparin 5,000 unit/mL injection 3,000 Units 3,000 Units intravenous Q6H PRN ondansetron ODT (ZOFRAN-ODT) disintegrating tablet 4 mg 4 mg oral Q6H PRN Or ondansetron (ZOFRAN) injection 4 mg 4 mg intravenous Q6H PRN ramelteon (ROZEREM) tablet 8 mg 8 mg oral Nightly PRN sodium chloride 0.9% flush 0.5-20 mL 0.5-20 mL intra-catheter PRN Recent Labs Lab Units 10/14/23 1106 10/14/23 0834 10/14/23 0556 10/14/23 0553 10/14/23 0205 10/14/23 0104 SODIUM mmol/L -- -- -- 131* -- 130* POTASSIUM PLASMA mmol/L -- -- -- 4.3 -- 4.3 CHLORIDE mmol/L -- -- -- 92* -- 90* CO2 mmol/L -- -- -- 23 -- 21* ANIONGAP mmol/L -- -- -- 16* -- 19* GLUCOSE mg/dL -- -- -- 287* -- 453* POC GLUCOSE MONITOR mg/dL 138 134 259* -- < > -- BUN SERUM mg/dL -- -- -- 75* -- 66* CREATININE mg/dL -- -- -- 10.22* -- 10.57* CALCIUM mg/dL -- -- -- 9.0 -- 9.2 ALBUMIN g/dL -- -- -- -- -- 3.4* ALK PHOS Units/L -- -- -- -- -- 98 ALT Units/L -- -- -- -- -- 21 AST Units/L -- -- -- -- -- 28 BILIRUBIN TOTAL mg/dL -- -- -- -- -- 0.3 < > = values in this interval not displayed. Recent Labs Lab Units 10/14/23 0104 WBC K/cumm 6.2 HEMOGLOBIN g/dL 9.4* HEMATOCRIT % 29.0* PLATELETS K/cumm 357 Recent Labs Lab Units 10/14/23 0553 10/14/23 0104 PROTIME (PT) sec -- 13.5 INR -- 1.18 APTT sec 56* 68* Intake/Output Summary (Last 24 hours) at 10/14/2023 1213 Last data filed at 10/14/2023 0254 Gross per 24 hour Intake 500 ml Output -- Net 500 ml Wt Readings from Last 3 Encounters: 10/14/23 123.3 kg (271 lb 13.2 oz) 06/29/22 118.1 kg (260 lb 6.4 oz) 01/21/21 132.9 kg (293 lb) Patient Vitals for the past 24 hrs: BP Temp Temp src Pulse Resp SpO2 Height Weight 10/14/23 0827 131/76 36.7 ??C (98 ??F) Oral 63 20 95 % -- 123.3 kg (271 lb 13.2 oz) 10/14/23 0717 -- -- -- 65 -- -- -- -- 10/14/23 0710 -- -- -- 63 -- -- -- -- 10/14/23 0555 -- 36.4 ??C (97.6 ??F) Oral 62 18 -- -- -- 10/14/23 0217 142/82 -- -- 64 -- -- -- -- 10/13/23 2322 141/89 36.4 ??C (97.5 ??F) Oral 69 18 95 % 177.8 cm (5' 10 ) 123.1 kg (271 lb 6.2 oz) Telemetry: sinus rhythm Exam: General: In no apparent distress Neuro: Alert and oriented x 3, moves all extremities well Head: Normocephalic, atraumatic Eyes: Sclera anicteric Neck: There are no carotid bruits. I do not appreciate JVD Lungs: Symmetric, unlabored, clear to auscultation bilaterally Heart: S1,S2, regular rate & rhythm, no murmurs, rubs, or gallops Abdomen: Soft, non-tender, non-distended, bowel sounds present Extremities: No LE edema, palpable peripheral pulses BL Neurologic: No focal deficits Psych: Mood and affect appropriate -Cardiac Cath (10/13/23 at [facility]): LM no dz. LCX 99% ostial stenosis and 90% stenosis atOM/LCX bifurcation. LAD mild diffuse disease in the ostium with a 90% stenosis at the origin of a very small high diagonal branch and otherwise mild LAD disease. RCA 99% mid stenosis. -Echo (10/11/23 at [facility]): LVEF 20-25%, moderate ASSESSMENT/PLAN: 1. CAD: The patient underwent cardiac catheterization that showed multivessel disease. His echo also showed that LVEF has dropped to 20-25% (65% in 05/2022). The patient is chest pain free. He is on a Heparin gtt along with Aspirin, statin, B-umair, CCB and Imdur. CTS is consulted for CABG evaluation. 2. : The patient was noted to have moderate on his echo. CTS eval ongoing. 3. Hypertension: Blood pressure is controlled. 4. Dyslipidemia: Continue on high-intensity statin. 5. Diabetes: Type 1 diabetic on insulin. Management per primary team. 6. ESRD: On peritoneal dialysis with management per Nephrology. 7. Paroxysmal Atrial Fibrillation: Occurred in 06/2022 during a hospital admission. He was on Apixaban which was stopped and is presently on Heparin as noted above. 8. DVT: Hx of RLE 2017. He was on Apixaban which was stopped and is presently on Heparin as noted above. Thank you for allowing us to participate in the care of this patient. We will continue to follow. If you have any questions, please don't hesitate to call. SHAMIKA Donald [facility] 10/14/2023 12:13 PM Cosigned by Felipe Robledo DO at 10/15/2023 10:13 AM BUILDING ADMIN DING ADMIN DING ADMIN DING ADMIN DING ADMIN documented in this encounter Nursing Notes * Jessica Rodriguez RN - 11/03/2023 7:17 PM CDT Informational packet on CABG, Mech AVR, sternal precautions, and Warfarin provided to pt. Pt statesvalve cards were given to him earlier during his admission. Educated on new medication schedule and compliance, medications delivered by mobile pharmacy. Instructions on wound care and s/sx of infection and bleeding, and activity restrictions gone over with pt. F/u visits and Dr's phone numbers highlighted. Extra supplies sent with pt until HH can seept. Pt assisted to car, no concerns raised. * Rehana Richard RN - 10/30/2023 11:33 AM CDT Wound/Ostomy Service New Consult Note Admit Date:10/13/23 Today's Date: 10/30/23 Reason for Consult:LE Wounds Nutrition BMI: 39.48 Diet Orders:Consistent Carb with Nepro Support Surfaces Type of Bed: BERT Type of Sitting Surface: Seat Cushion Heel Protection: none Skin/Wound Assessment: 10/30/23 1100 Wound 10/27/23 Left Herman/tibia blister-popped Date First Assessed/Time First Assessed: 10/27/23 1510 Location Orientation: Left Location: Herman/tibia Wound Description (Comments): blister-popped Wound Status Healing Site Assessment [place];Moist Marie-wound Assessment Fragile;Flaky;Dry;Erythematous Margins Defined edges Closure Unapproximated Drainage Amount Small Drainage Description Serous Drainage Odor No odor Dressing Status New Dressing Silver foam;Gauze rolled Interventions Cleansed Recommendations: welder plasma arc to complete Polymem dressing as ordered. Pressure injury prevention measures dn moisture management in place. Education: Plan of Care discussed with: Patient, welder plasma arc Questions answered: YES Wound/Ostomy will follow patient: NO Please contact the Wound/Ostomy Dept on Vocera with any questions or concerns. documented in this encounter Miscellaneous Notes * Plan of Care - Jessica Rodriguez RN - 11/03/2023 2:26 PM CDT Goals: Clinical Goals for the Shift: VSS, monitor labs and tele, ambulation, pain control, safety, IV abx Summary: Pt VSS throughout shift, NSR per tele. Pain controlled with PRN Oxy, no nausea worth treating. Up ad rachael, gait steady. Heparin gtt infusing per MAR, aPTT monitored per order. Call light within reach, cooperative with use. Tentative plan to discharge home today, continue with plan of care. Problem: Lack of Knowledge Goal: Ability to develop a pain control plan will improve Outcome: Progressing Problem: Medication Goal: Satisfaction with pain management medication regimen will improve Outcome: Progressing Problem: Sensory Goal: Ability to identify factors that increase pain levels will improve while working to decrease the patient's pain levels Outcome: Progressing Problem: Coping Goal: Ability to cope will improve Outcome: Progressing Problem: Health Behavior Goal: Identification of resources available to assist in meeting health care needs will improve Outcome: Progressing Problem: Discharge Planning Goal: Understanding discharge needs will improve Outcome: Progressing Problem: Obstructive Sleep Apnea (BEN) Goal: Patients ability to maintain adequate ventilation during sleep periods will improve Outcome: Progressing Problem: Health Nutrition Goal: Nutritional intake and knowledge related to Diabetes will improve Outcome: Progressing Problem: Fall Risk Goal: Ability to state ways to decrease the risk of falls will improve Outcome: Progressing Goal: Will remain free from falls Outcome: Progressing Goal: Will remain free from injury from falls Outcome: Progressing Problem: Respiratory Goal: Achieves optimal ventilation and oxygenation Outcome: Progressing Goal: Ability to maintain a clear airway will improve Outcome: Progressing Problem: Skin Integrity Impairment Risk Goal: Mobility will improve Outcome: Progressing Goal: Understanding of ways to prevent future skin breakdown will improve Outcome: Progressing Goal: Nutritional status will improve Outcome: Progressing Goal: Risk for impaired skin integrity will decrease Outcome: Progressing * Post-Procedure Note - Basilia John RN - 11/03/2023 8:00 AM CDT Peritoneal Dialysis Treatment Summary: Juvenal Garvin Jr. received peritoneal dialysis on 11/02/2023 PD catheter exit site: PD catheter dressing change completed and topical antibiotic applied per orders CCPD Duration: 8.5hrs Fill volumes: 2500ml Dianeal solution: #1 = 4.25% (6L); #2 = 2.5% (6L) Additives: Heparin; #1 & #2 each bag = 3000units of heparin Number of cycles: 4 Last fill volume: 1000ml; #3 = 7.5% (2.5L) with 1250units of heparin Total UF volume: 2160ml Initial drain volume: 1419ml CAPD In Out In Out In Out In Out In Out In Out Volume in/out: Dwell time: Number of exchanges per day: Dianeal Solution: Additives: Comments: Pt tolerated PD well. Denied any c/o. PD drsg D&I * Consults, Subsequent - Augustin Bethea MD - 11/02/2023 8:02 PM CDT Endocrine Note Reason for Consult: type 1 DM post op, insulin pump at home. uncontrolled, ESRD on PD Subjective BG high as he ran out on supplies that include insulin. Son got in pump supplies. Doing well now. Past Medical History: Diagnosis Date CAD (coronary artery disease) Chest pain Diabetes mellitus (HCC) Diabetes mellitus type I (HCC) Dialysis patient (HCC) ESRD on dialysis (HCC) GERD (gastroesophageal reflux disease) Hyperlipidemia Hypertension Sleep apnea SOB (shortness of breath) Past Surgical History: Procedure Laterality Date APPENDECTOMY Appendectomy APPENDECTOMY CENTRAL LINE PLACEMENT > 5 YEARS N/A 06/18/2022 CORONARY ANGIOPLASTY WITH STENT PLACEMENT FEMUR SURGERY KNEE SURGERY knee surgery OPEN REDUCTION INTERNAL FIXATION ORIF OTHER SURGICAL HISTORY eye surg-vitrectomy Medications Prior to Admission Medication Sig Dispense Refill Last Dose acetaminophen 500 mg capsule Take 2 capsules (1,000 mg total) by mouth every 6 (six) hours as needed for pain 30 tablet 1 Past Week aspirin 81 mg enteric coated tablet Take 1 tablet (81 mg total) by mouth daily Past Week atorvastatin (LIPITOR) 80 mg tablet Take 1 tablet (80 mg total) by mouth daily 10/12/2023 calcitRIOL (ROCALTROL) 0.25 mcg capsule Take 1 capsule (0.25 mcg total) by mouth daily 10/12/2023 calcium acetate,phosphat bind, (PHOSLO) 667 mg capsule Take 1 capsule (667 mg total) by mouth 4 (four) times a day (with meals and nightly) With meals and snack 10/12/2023 cetirizine (ZyrTEC) 10 mg tablet Take 1 tablet (10 mg total) by mouth daily as needed for allergies10/12/2023 cholecalciferol (VITAMIN D-3) 2000 unit tablet Take 25 tablets (50,000 Units total) by mouth once aweek Past Week clopidogrel (PLAVIX) 75 mg tablet TAKE 1 TABLET BY MOUTH DAILY 90 tablet 0 10/12/2023 colchicine (COLCRYS) 0.6 mg tablet Take 1 tablet (0.6 mg total) by mouth 3 (three) times a week Monday, Monday, Monday10/12/2023 EZETIMIBE ORAL Take 10 mg by mouth daily 10/12/2023 famotidine (PEPCID) 40 mg tablet Take 0.5 tablets (20 mg total) by mouth nightly 10/12/2023 gemfibroziL (LOPID) 600 mg tablet Take 1 tablet (600 mg total) by mouth 2 (two) times a day before breakfast and lunch 10/12/2023 icosapent ethyL (VASCEPA) 1 gram capsule Take 2 capsules (2 g total) by mouth 2 (two) times a day 10/12/2023 insulin lispro (HumaLOG, ADMELOG) 100 unit/mL vial for injection THIS IS FOR THE INSULIN PUMP: Continue Omnipod 5 insulin pump with [employer] G6 CGM at home settings: TIME BASAL RATE TOTAL BASAL DAILY DOSE: 65.85 0330 1.7 units/hour 0800 0.8 units/hour 1999 5.8 units/hour 10/12/2023 isosorbide mononitrate ER (IMDUR) 30 mg 24 hr tablet TAKE 1 TABLET BY MOUTH EVERY DAY 90 tablet 0 10/12/2023 metoprolol (LOPRESSOR) 100 mg tablet Take 1 tablet (100 mg total) by mouth every 12 (twelve) hours 10/12/2023 NIFEdipine (NIFEdipine XL) 90 mg 24 hr tablet Take 1 tablet (90 mg total) by mouth daily 10/12/2023 omeprazole (PriLOSEC) 20 mg capsule Take 1 capsule (20 mg total) by mouth daily 10/12/2023 potassium chloride ER 10 mEq CR tablet Take 2 tablet/capsule (20 mEq total) by mouth nightly 10/12/2023 ranolazine ER (RANEXA) 500 mg 12 hr tablet Take 1 tablet (500 mg total) by mouth 2 (two) times a day 10/12/2023 losartan (COZAAR) 25 mg tablet Take 0.5 tablets (12.5 mg total) by mouth daily 15 tablet 11 pen needle, diabetic (BD Ultra-Fine Short Pen Needle) 31 gauge x 5/16 needle U ONE PEN NEEDLE TO INJ INSULIN SC QID (Patient not taking: Reported on 10/14/2023) Not Taking Allergies Allergen Reactions Allopurinol Other (See comments) [...] Rash Iodinated Diagnostic Agents Ticagrelor Rash Rash Social History Tobacco Use Smoking status: Never Smokeless tobacco: Former Substance and Sexual Activity Drug use: No Sexual activity: Defer Alcohol Use: Not At Risk (06/07/2022) AUDIT-C Frequency of Alcohol Consumption: Monthly or less Average Number of Drinks: 3 or 4 Frequency of Binge Drinking: Never Family History Problem Relation Age of Onset Heart attack Father Review of Systems: Review of systems per HPI and otherwise all other systems are negative Objective Vitals: 24hr Min/Max: Temp Min: 36.7 ??C (98.1 ??F) Max: 37.4 ??C (99.4 ??F) Pulse Min: 66 Max: 75 BP Min: 133/66 Max: 163/75 Resp Min: 18 Max: 18 SpO2 Min: 93 % Max: 98 % Most Recent : Vitals: 11/02/23 1543 BP: 139/57 Pulse: 72 Resp: 18 Temp: 36.9 ??C (98.4 ??F) SpO2: 96% I/O last 2 completed shifts: In: 742 [P.O.:462; I.V.:20; IV Piggyback:260] Out: 4417 [Urine:500; Other:3917] No intake/output data recorded. Physical Exam: General appearance: appears stated age and cooperative Lungs: clear to auscultation bilaterally Heart: regular rate and rhythm, S1, S2 normal, no murmur, click, rub or gallop Abdomen: soft, non-tender; bowel sounds normal; no masses, no organomegaly Lab/Radiology/Diagnostic Review: Laboratory review: POC Glucose: Lab Results Component Value Date GLUCOSE 176 (H) 11/02/2023 GLUCOSE 353 (H) 11/02/2023 Latest Reference Range & Units Most Recent Hgb A1C 4.0 - 5.6 % 8.1 (H) 10/16/23 15:27 (H): Data is abnormally high Assessment /Plan Principal Problem: CAD in [place] artery 1. Uncontrolled type 1 diabetes, A1c noted to be 8.1% 10/14, BG 300's as he ran out on supplies that include insulin. Son got in pump supplies. Doing well now. Advised to bolus Q4hrs with PD. On Omnipod pump, Dexcom G6 Pump setting, Basal settin units an hour 10:00 p.m. to 8:00 a.m., 3.2 units 8:00 a.m. to 10:00 p.m. Bolus setting carb ratio 5, correction factor 15 Levothyroxine 25 mcg daily. Discussed with pt. Celina I am out of town till 11/14. Pl call enterprise resource planning consultant provider. Once ready per primary team can go home on current pump settings, advised to follow-up with me in clinic in 4-6 weeks. This note was transcribed using Speech Recognition software. May contain unintended grammar and spelling errors. If there are any questions or major errors, please contact me. Thank you for allowing us to participate in the care of this patient. We will continue to follow. If you have any questions, please don't hesitate to call. Augustin Bethea MD [facility] [email or web address] Office phone: [phone] Office fax: [phone] * Plan of Care - Jessica Rodriguez RN - 11/02/2023 3:54 PM CDT Goals: Clinical Goals for the Shift: VSS, monitor labs and tele, ambulation, pain control, safety, IV abx Summary: Pt VSS throughout shift, NSR per tele. Denies pain or nausea worth treating. Up ad rachael, gait steady. Heparin gtt started, next aPTT ordered scheduled. IV abx administered per OCT. Call lightwithin reach, cooperative with use. Continue with plan of care. Problem: Lack of Knowledge Goal: Ability to develop a pain control plan will improve Outcome: Progressing Problem: Medication Goal: Satisfaction with pain management medication regimen will improve Outcome: Progressing Problem: Sensory Goal: Ability to identify factors that increase pain levels will improve while working to decrease the patient's pain levels Outcome: Progressing Problem: Coping Goal: Ability to cope will improve Outcome: Progressing Problem: Health Behavior Goal: Identification of resources available to assist in meeting health care needs will improve Outcome: Progressing Problem: Discharge Planning Goal: Understanding discharge needs will improve Outcome: Progressing Problem: Obstructive Sleep Apnea (BEN) Goal: Patients ability to maintain adequate ventilation during sleep periods will improve Outcome: Progressing Problem: Health Nutrition Goal: Nutritional intake and knowledge related to Diabetes will improve Outcome: Progressing Problem: Fall Risk Goal: Ability to state ways to decrease the risk of falls will improve Outcome: Progressing Goal: Will remain free from falls Outcome: Progressing Goal: Will remain free from injury from falls Outcome: Progressing Problem: Respiratory Goal: Achieves optimal ventilation and oxygenation Outcome: Progressing Goal: Ability to maintain a clear airway will improve Outcome: Progressing Problem: Skin Integrity Impairment Risk Goal: Mobility will improve Outcome: Progressing Goal: Understanding of ways to prevent future skin breakdown will improve Outcome: Progressing Goal: Nutritional status will improve Outcome: Progressing Goal: Risk for impaired skin integrity will decrease Outcome: Progressing * Post-Procedure Note - Jackie Masters RN - 11/02/2023 9:54 AM CDT Peritoneal Dialysis Treatment Summary: Juvenal Garvin Jr. received peritoneal dialysis on 11/01/2023 PD catheter exit site: PD catheter dressing change completed and topical antibiotic applied per orders CCPD Duration: 8.5 hrs Fill volumes: 2500mls Dianeal solution: 2.5 % in 6000 mls bag X 1 , 4.25 % in 6000 mls bag X 1 Additives: 3000 units Number of cycles: 4 Last fill volume: 1000 mls Total UF volume: 2637 mls Initial drain volume: 1280 mls CAPD In Out In Out In Out In Out In Out In Out Volume in/out: Dwell time: Number of exchanges per day: Dianeal Solution: Additives: Comments: Pt states no c/o overnight with PD tx , effluent clear and yellow , dressing dry and intact * Consults, Subsequent - Augustin Bethea MD - 11/01/2023 11:15 AM CDT Endocrine Note Reason for Consult: type 1 DM post op, insulin pump at home. uncontrolled, ESRD on PD Subjective Doing well. BG high. Compliant with diet and pump use. Past Medical History: Diagnosis Date CAD (coronary artery disease) Chest pain Diabetes mellitus (HCC) Diabetes mellitus type I (HCC) Dialysis patient (HCC) ESRD on dialysis (HCC) GERD (gastroesophageal reflux disease) Hyperlipidemia Hypertension Sleep apnea SOB (shortness of breath) Past Surgical History: Procedure Laterality Date APPENDECTOMY Appendectomy APPENDECTOMY CENTRAL LINE PLACEMENT > 5 YEARS N/A 06/18/2022 CORONARY ANGIOPLASTY WITH STENT PLACEMENT FEMUR SURGERY KNEE SURGERY knee surgery OPEN REDUCTION INTERNAL FIXATION ORIF OTHER SURGICAL HISTORY eye surg-vitrectomy Medications Prior to Admission Medication Sig Dispense Refill Last Dose acetaminophen 500 mg capsule Take 2 capsules (1,000 mg total) by mouth every 6 (six) hours as needed for pain 30 tablet 1 Past Week aspirin 81 mg enteric coated tablet Take 1 tablet (81 mg total) by mouth daily Past Week atorvastatin (LIPITOR) 80 mg tablet Take 1 tablet (80 mg total) by mouth daily 10/12/2023 calcitRIOL (ROCALTROL) 0.25 mcg capsule Take 1 capsule (0.25 mcg total) by mouth daily 10/12/2023 calcium acetate,phosphat bind, (PHOSLO) 667 mg capsule Take 1 capsule (667 mg total) by mouth 4 (four) times a day (with meals and nightly) With meals and snack 10/12/2023 cetirizine (ZyrTEC) 10 mg tablet Take 1 tablet (10 mg total) by mouth daily as needed for allergies10/12/2023 cholecalciferol (VITAMIN D-3) 2000 unit tablet Take 25 tablets (50,000 Units total) by mouth once aweek Past Week clopidogrel (PLAVIX) 75 mg tablet TAKE 1 TABLET BY MOUTH DAILY 90 tablet 0 10/12/2023 colchicine (COLCRYS) 0.6 mg tablet Take 1 tablet (0.6 mg total) by mouth 3 (three) times a week Monday, Monday, Monday10/12/2023 EZETIMIBE ORAL Take 10 mg by mouth daily 10/12/2023 famotidine (PEPCID) 40 mg tablet Take 0.5 tablets (20 mg total) by mouth nightly 10/12/2023 gemfibroziL (LOPID) 600 mg tablet Take 1 tablet (600 mg total) by mouth 2 (two) times a day before breakfast and lunch 10/12/2023 icosapent ethyL (VASCEPA) 1 gram capsule Take 2 capsules (2 g total) by mouth 2 (two) times a day 10/12/2023 insulin lispro (HumaLOG, ADMELOG) 100 unit/mL vial for injection THIS IS FOR THE INSULIN PUMP: Continue Omnipod 5 insulin pump with Mpayy G6 CGM at home settings: TIME BASAL RATE TOTAL BASAL DAILY DOSE: 65.85 0330 1.7 units/hour 0800 0.8 units/hour 2000 5.8 units/hour 10/12/2023 isosorbide mononitrate ER (IMDUR) 30 mg 24 hr tablet TAKE 1 TABLET BY MOUTH EVERY DAY 90 tablet 0 10/12/2023 metoprolol (LOPRESSOR) 100 mg tablet Take 1 tablet (100 mg total) by mouth every 12 (twelve) hours 10/12/2023 NIFEdipine (NIFEdipine XL) 90 mg 24 hr tablet Take 1 tablet (90 mg total) by mouth daily 10/12/2023 omeprazole (PriLOSEC) 20 mg capsule Take 1 capsule (20 mg total) by mouth daily 10/12/2023 potassium chloride ER 10 mEq CR tablet Take 2 tablet/capsule (20 mEq total) by mouth nightly 10/12/2023 ranolazine ER (RANEXA) 500 mg 12 hr tablet Take 1 tablet (500 mg total) by mouth 2 (two) times a day 10/12/2023 losartan (COZAAR) 25 mg tablet Take 0.5 tablets (12.5 mg total) by mouth daily 15 tablet 11 pen needle, diabetic (BD Ultra-Fine Short Pen Needle) 31 gauge x 5/16 needle U ONE PEN NEEDLE TO INJ INSULIN SC QID (Patient not taking: Reported on 10/14/2023) Not Taking Allergies Allergen Reactions Allopurinol Other (See comments) [...] Rash Iodinated Diagnostic Agents Ticagrelor Rash Rash Social History Tobacco Use Smoking status: Never Smokeless tobacco: Former Substance and Sexual Activity Drug use: No Sexual activity: Defer Alcohol Use: Not At Risk (06/07/2022) AUDIT-C Frequency of Alcohol Consumption: Monthly or less Average Number of Drinks: 3 or 4 Frequency of Binge Drinking: Never Family History Problem Relation Age of Onset Heart attack Father Review of Systems: Review of systems per HPI and otherwise all other systems are negative Objective Vitals: 24hr Min/Max: Temp Min: 36.7 ??C (98.1 ??F) Max: 36.9 ??C (98.4 ??F) Pulse Min: 67 Max: 72 BP Min: 137/67 Max: 160/64 Resp Min: 18 Max: 22 SpO2 Min: 94 % Max: 100 % Most Recent : Vitals: 11/01/23 0806 BP: 155/81 Pulse: Resp: Temp: 36.7 ??C (98.1 ??F) SpO2: 97% I/O last 2 completed shifts: In: 650 [P.O.:650] Out: 3732 [Other:3732] I/O this shift: In: 270 [P.O.:270] Out: 3797 [Other:3797] Physical Exam: General appearance: appears stated age and cooperative Lungs: clear to auscultation bilaterally Heart: regular rate and rhythm, S1, S2 normal, no murmur, click, rub or gallop Abdomen: soft, non-tender; bowel sounds normal; no masses, no organomegaly Lab/Radiology/Diagnostic Review: Laboratory review: POC Glucose: Lab Results Component Value Date GLUCOSE 246 (H) 11/01/2023 GLUCOSE 302 (H) 11/01/2023 Latest Reference Range & Units Most Recent Hgb A1C 4.0 - 5.6 % 8.1 (H) 10/16/23 15:27 (H): Data is abnormally high Assessment /Plan Principal Problem: CAD in [place] artery 1. Uncontrolled type 1 diabetes, A1c noted to be 8.1% 10/14, BG 200's, advised to bolus Q4hrs with PD. On Omnipod pump, Dexcom G6 Pump setting, Basal settin >>>5.5units an hour 10:00 p.m. to 8:00 a.m., 3.2 units 8:00 a.m. to 10:00 p.m. Bolus setting carb ratio 5>>>7, correction factor 15>>.20 Levothyroxine 25 mcg daily. Discussed with pt. Patrick once ready per primary team can go home on current pump settings, advised to follow-up with me in clinic in 4-6 weeks. This note was transcribed using Speech Recognition software. May contain unintended grammar and spelling errors. If there are any questions or major errors, please contact me. Thank you for allowing us to participate in the care of this patient. We will continue to follow. If you have any questions, please don't hesitate to call. Augustin Bethea MD [facility] [email or web address] Office phone: [phone] Office fax: [phone] * Post-Procedure Note - Basilia John RN - 11/01/2023 8:30 AM CDT Peritoneal Dialysis Treatment Summary: Juvenal Garvin Jr. received peritoneal dialysis on 10/31/2023 PD catheter exit site: PD catheter dressing change completed and topical antibiotic applied per orders CCPD Duration: 8.5hrs Fill volumes: 2500ml Dianeal solution: #1 = 4.25% (6L); #2 = 2.5% (6L) Additives: Heparin #1 & #2 = 3000 units in each bag Number of cycles: 4 Last fill volume: 1000ml; #3 = 7.5% (2.5L) with 1250 units heparin Total UF volume: 2452ml Initial drain volume: 1345ml CAPD In Out In Out In Out In Out In Out In Out Volume in/out: Dwell time: Number of exchanges per day: Dianeal Solution: Additives: Comments: Pt tolerated PD treatment well. Denied any c/o. PD drsg D&I. * Consults, Subsequent - Augustin Bethea MD - 10/31/2023 5:11 PM CDT Endocrine Note Reason for Consult: type 1 DM post op, insulin pump at home. uncontrolled, ESRD on PD Subjective Doing well. BG high. Compliant with diet and pump use. Past Medical History: Diagnosis Date CAD (coronary artery disease) Chest pain Diabetes mellitus (HCC) Diabetes mellitus type I (HCC) Dialysis patient (HCC) ESRD on dialysis (HCC) GERD (gastroesophageal reflux disease) Hyperlipidemia Hypertension Sleep apnea SOB (shortness of breath) Past Surgical History: Procedure Laterality Date APPENDECTOMY Appendectomy APPENDECTOMY CENTRAL LINE PLACEMENT > 5 YEARS N/A 06/18/2022 CORONARY ANGIOPLASTY WITH STENT PLACEMENT FEMUR SURGERY KNEE SURGERY knee surgery OPEN REDUCTION INTERNAL FIXATION ORIF OTHER SURGICAL HISTORY eye surg-vitrectomy Medications Prior to Admission Medication Sig Dispense Refill Last Dose acetaminophen 500 mg capsule Take 2 capsules (1,000 mg total) by mouth every 6 (six) hours as needed for pain 30 tablet 1 Past Week aspirin 81 mg enteric coated tablet Take 1 tablet (81 mg total) by mouth daily Past Week atorvastatin (LIPITOR) 80 mg tablet Take 1 tablet (80 mg total) by mouth daily 10/12/2023 calcitRIOL (ROCALTROL) 0.25 mcg capsule Take 1 capsule (0.25 mcg total) by mouth daily 10/12/2023 calcium acetate,phosphat bind, (PHOSLO) 667 mg capsule Take 1 capsule (667 mg total) by mouth 4 (four) times a day (with meals and nightly) With meals and snack 10/12/2023 cetirizine (ZyrTEC) 10 mg tablet Take 1 tablet (10 mg total) by mouth daily as needed for allergies10/12/2023 cholecalciferol (VITAMIN D-3) 2000 unit tablet Take 25 tablets (50,000 Units total) by mouth once aweek Past Week clopidogrel (PLAVIX) 75 mg tablet TAKE 1 TABLET BY MOUTH DAILY 90 tablet 0 10/12/2023 colchicine (COLCRYS) 0.6 mg tablet Take 1 tablet (0.6 mg total) by mouth 3 (three) times a week Monday, Monday, Monday10/12/2023 EZETIMIBE ORAL Take 10 mg by mouth daily 10/12/2023 famotidine (PEPCID) 40 mg tablet Take 0.5 tablets (20 mg total) by mouth nightly 10/12/2023 gemfibroziL (LOPID) 600 mg tablet Take 1 tablet (600 mg total) by mouth 2 (two) times a day before breakfast and lunch 10/12/2023 icosapent ethyL (VASCEPA) 1 gram capsule Take 2 capsules (2 g total) by mouth 2 (two) times a day 10/12/2023 insulin lispro (HumaLOG, ADMELOG) 100 unit/mL vial for injection THIS IS FOR THE INSULIN PUMP: Continue Omnipod 5 insulin pump with Mpayy G6 CGM at home settings: TIME BASAL RATE TOTAL BASAL DAILY DOSE: 65.85 0330 1.7 units/hour 0800 0.8 units/hour 2000 5.8 units/hour 10/12/2023 isosorbide mononitrate ER (IMDUR) 30 mg 24 hr tablet TAKE 1 TABLET BY MOUTH EVERY DAY 90 tablet 0 10/12/2023 metoprolol (LOPRESSOR) 100 mg tablet Take 1 tablet (100 mg total) by mouth every 12 (twelve) hours 10/12/2023 NIFEdipine (NIFEdipine XL) 90 mg 24 hr tablet Take 1 tablet (90 mg total) by mouth daily 10/12/2023 omeprazole (PriLOSEC) 20 mg capsule Take 1 capsule (20 mg total) by mouth daily 10/12/2023 potassium chloride ER 10 mEq CR tablet Take 2 tablet/capsule (20 mEq total) by mouth nightly 10/12/2023 ranolazine ER (RANEXA) 500 mg 12 hr tablet Take 1 tablet (500 mg total) by mouth 2 (two) times a day 10/12/2023 losartan (COZAAR) 25 mg tablet Take 0.5 tablets (12.5 mg total) by mouth daily 15 tablet 11 pen needle, diabetic (BD Ultra-Fine Short Pen Needle) 31 gauge x 5/16 needle U ONE PEN NEEDLE TO INJ INSULIN SC QID (Patient not taking: Reported on 10/14/2023) Not Taking Allergies Allergen Reactions Allopurinol Other (See comments) [...] Rash Iodinated Diagnostic Agents Ticagrelor Rash Rash Social History Tobacco Use Smoking status: Never Smokeless tobacco: Former Substance and Sexual Activity Drug use: No Sexual activity: Defer Alcohol Use: Not At Risk (06/07/2022) AUDIT-C Frequency of Alcohol Consumption: Monthly or less Average Number of Drinks: 3 or 4 Frequency of Binge Drinking: Never Family History Problem Relation Age of Onset Heart attack Father Review of Systems: Review of systems per HPI and otherwise all other systems are negative Objective Vitals: 24hr Min/Max: Temp Min: 36.8 ??C (98.2 ??F) Max: 37.2 ??C (99 ??F) Pulse Min: 60 Max: 73 BP Min: 130/63 Max: 144/65 Resp Min: 18 Max: 22 SpO2 Min: 93 % Max: 99 % Most Recent : Vitals: 10/31/23 1617 BP: 138/69 Pulse: Resp: 22 Temp: 36.9 ??C (98.4 ??F) SpO2: 96% I/O last 2 completed shifts: In: 240 [P.O.:240] Out: 5095 [Other:5095] I/O this shift: In: 200 [P.O.:200] Out: 3732 [Other:3732] Physical Exam: General appearance: appears stated age and cooperative Lungs: clear to auscultation bilaterally Heart: regular rate and rhythm, S1, S2 normal, no murmur, click, rub or gallop Abdomen: soft, non-tender; bowel sounds normal; no masses, no organomegaly Lab/Radiology/Diagnostic Review: Laboratory review: POC Glucose: Lab Results Component Value Date GLUCOSE 231 (H) 10/31/2023 GLUCOSE 275 (H) 10/31/2023 Latest Reference Range & Units Most Recent Hgb A1C 4.0 - 5.6 % 8.1 (H) 10/16/23 15:27 (H): Data is abnormally high Assessment /Plan Principal Problem: CAD in [place] artery 1. Uncontrolled type 1 diabetes, A1c noted to be 8.1% 10/14, BG 200's, advised to bolus Q4hrs with PD. On Omnipod pump, Dexcom G6 Pump setting, Basal settin.5 >>>4.5units an hour 10:00 p.m. to 8:00 a.m., 3.2>>>2.5. units 8:00 a.m. to 10:00 p.m. Bolus setting carb ratio 5>>>7, correction factor 15>>.20 Levothyroxine 25 mcg daily. Discussed with ptSharath Patrick once ready per primary team can go home on current pump settings, advised to follow-up with me in clinic in 4-6 weeks. This note was transcribed using Speech Recognition software. May contain unintended grammar and spelling errors. If there are any questions or major errors, please contact me. Thank you for allowing us to participate in the care of this patient. We will continue to follow. If you have any questions, please don't hesitate to call. Augustin Bethea MD [facility] [email or web address] Office phone: [phone] Office fax: [phone] * Post-Procedure Note - Basilia John RN - 10/31/2023 9:10 AM CDT Peritoneal Dialysis Treatment Summary: Juvenal Garvin Jr. received peritoneal dialysis on 10/30/2023 PD catheter exit site: PD catheter dressing change completed and topical antibiotic applied per orders CCPD Duration: 8.5hrs Fill volumes: 2500ml Dianeal solution: #1 = 4.25 (6L x1); #2 = 2.5% (6L x1) Additives: Heparin to #1 & #2 bags each 3000 units of heparin. Number of cycles: 4 Last fill volume: 1000ml; #3 = 7.5% (2.5L x1) with 1250 units of heparin Total UF volume: 3530ml Initial drain volume: 202ml CAPD In Out In Out In Out In Out In Out In Out Volume in/out: Dwell time: Number of exchanges per day: Dianeal Solution: Additives: Comments: Pt tolerated PD treatment well. Denied any c/o. PD drsg D&I * Plan of Care - Yamilet Lopez RN - 10/30/2023 3:57 PM CDT Goals: Clinical Goals for the Shift: vss, PD, monitor vitals and blood sugar Summary: patient showered, worked with PT. Insulin pump adjusted per endocrine. Vss. Lower extremity re-dressed. IV abx. Problem: Lack of Knowledge Goal: Ability to develop a pain control plan will improve Outcome: Progressing Problem: Medication Goal: Satisfaction with pain management medication regimen will improve Outcome: Progressing Problem: Sensory Goal: Ability to identify factors that increase pain levels will improve while working to decrease the patient's pain levels Outcome: Progressing Problem: Coping Goal: Ability to cope will improve Outcome: Progressing * Plan of Care - Genie Benjamin RN - 10/30/2023 3:32 PM CDT Informed patient of denial of acute rehab request by his insurance company. Patient states he does not want to appeal the denial and plans to discharge home with home health care . Patient states hisadult children will be able to assist him at home and will be available 13/03. Guerline GRACE notified of above. * Plan of Care - Genie Benjamin RN - 10/30/2023 2:42 PM CDT Received notification from [facility] acute rehab assistant director of admissions, Carey Phillips , patients [employer] insurance denied request for authorization for inpatient acute rehab . Peer to peer offered at [phone] opt 4.peer to peer needs to be requested by 1200 noon tomorrow, 10/30. Reference no. [id number]. Member ID no. [id number]. Guerline GRACE notified of above. * Consults, Subsequent - Augustin Bethea MD - 10/30/2023 10:54 AM CDT Endocrine Note Reason for Consult: type 1 DM post op, insulin pump at home. uncontrolled, ESRD on PD Subjective Doing well. BG high. Compliant with diet and pump use. Past Medical History: Diagnosis Date CAD (coronary artery disease) Chest pain Diabetes mellitus (HCC) Diabetes mellitus type I (HCC) Dialysis patient (HCC) ESRD on dialysis (HCC) GERD (gastroesophageal reflux disease) Hyperlipidemia Hypertension Sleep apnea SOB (shortness of breath) Past Surgical History: Procedure Laterality Date APPENDECTOMY Appendectomy APPENDECTOMY CENTRAL LINE PLACEMENT > 5 YEARS N/A 06/18/2022 CORONARY ANGIOPLASTY WITH STENT PLACEMENT FEMUR SURGERY KNEE SURGERY knee surgery OPEN REDUCTION INTERNAL FIXATION ORIF OTHER SURGICAL HISTORY eye surg-vitrectomy Medications Prior to Admission Medication Sig Dispense Refill Last Dose acetaminophen 500 mg capsule Take 2 capsules (1,000 mg total) by mouth every 6 (six) hours as needed for pain 30 tablet 1 Past Week aspirin 81 mg enteric coated tablet Take 1 tablet (81 mg total) by mouth daily Past Week atorvastatin (LIPITOR) 80 mg tablet Take 1 tablet (80 mg total) by mouth daily 10/12/2023 calcitRIOL (ROCALTROL) 0.25 mcg capsule Take 1 capsule (0.25 mcg total) by mouth daily 10/12/2023 calcium acetate,phosphat bind, (PHOSLO) 667 mg capsule Take 1 capsule (667 mg total) by mouth 4 (four) times a day (with meals and nightly) With meals and snack 10/12/2023 cetirizine (ZyrTEC) 10 mg tablet Take 1 tablet (10 mg total) by mouth daily as needed for allergies10/12/2023 cholecalciferol (VITAMIN D-3) 2000 unit tablet Take 25 tablets (50,000 Units total) by mouth once aweek Past Week clopidogrel (PLAVIX) 75 mg tablet TAKE 1 TABLET BY MOUTH DAILY 90 tablet 0 10/12/2023 colchicine (COLCRYS) 0.6 mg tablet Take 1 tablet (0.6 mg total) by mouth 3 (three) times a week Monday, Monday, Monday10/12/2023 EZETIMIBE ORAL Take 10 mg by mouth daily 10/12/2023 famotidine (PEPCID) 40 mg tablet Take 0.5 tablets (20 mg total) by mouth nightly 10/12/2023 gemfibroziL (LOPID) 600 mg tablet Take 1 tablet (600 mg total) by mouth 2 (two) times a day before breakfast and lunch 10/12/2023 icosapent ethyL (VASCEPA) 1 gram capsule Take 2 capsules (2 g total) by mouth 2 (two) times a day 10/12/2023 insulin lispro (HumaLOG, ADMELOG) 100 unit/mL vial for injection THIS IS FOR THE INSULIN PUMP: Continue Omnipod 5 insulin pump with Mpayy G6 CGM at home settings: TIME BASAL RATE TOTAL BASAL DAILY DOSE: 65.85 0330 1.7 units/hour 0800 0.8 units/hour 2000 5.8 units/hour 10/12/2023 isosorbide mononitrate ER (IMDUR) 30 mg 24 hr tablet TAKE 1 TABLET BY MOUTH EVERY DAY 90 tablet 0 10/12/2023 metoprolol (LOPRESSOR) 100 mg tablet Take 1 tablet (100 mg total) by mouth every 12 (twelve) hours 10/12/2023 NIFEdipine (NIFEdipine XL) 90 mg 24 hr tablet Take 1 tablet (90 mg total) by mouth daily 10/12/2023 omeprazole (PriLOSEC) 20 mg capsule Take 1 capsule (20 mg total) by mouth daily 10/12/2023 potassium chloride ER 10 mEq CR tablet Take 2 tablet/capsule (20 mEq total) by mouth nightly 10/12/2023 ranolazine ER (RANEXA) 500 mg 12 hr tablet Take 1 tablet (500 mg total) by mouth 2 (two) times a day 10/12/2023 losartan (COZAAR) 25 mg tablet Take 0.5 tablets (12.5 mg total) by mouth daily 15 tablet 11 pen needle, diabetic (BD Ultra-Fine Short Pen Needle) 31 gauge x 5/16 needle U ONE PEN NEEDLE TO INJ INSULIN SC QID (Patient not taking: Reported on 10/14/2023) Not Taking Allergies Allergen Reactions Allopurinol Other (See comments) [...] Rash Iodinated Diagnostic Agents Ticagrelor Rash Rash Social History Tobacco Use Smoking status: Never Smokeless tobacco: Former Substance and Sexual Activity Drug use: No Sexual activity: Defer Alcohol Use: Not At Risk (06/07/2022) AUDIT-C Frequency of Alcohol Consumption: Monthly or less Average Number of Drinks: 3 or 4 Frequency of Binge Drinking: Never Family History Problem Relation Age of Onset Heart attack Father Review of Systems: Review of systems per HPI and otherwise all other systems are negative Objective Vitals: 24hr Min/Max: Temp Min: 36.7 ??C (98.1 ??F) Max: 37.1 ??C (98.7 ??F) Pulse Min: 62 Max: 72 BP Min: 133/68 Max: 157/58 Resp Min: 18 Max: 20 SpO2 Min: 93 % Max: 99 % Most Recent : Vitals: 10/30/23 0758 BP: 133/68 Pulse: 67 Resp: 20 Temp: 36.8 ??C (98.2 ??F) SpO2: I/O last 2 completed shifts: In: 4540 [P.O.:1000; I.V.:40; Other:3500] Out: 200 [Urine:200] I/O this shift: In: - Out: 5095 [Other:5095] Physical Exam: General appearance: appears stated age and cooperative Lungs: clear to auscultation bilaterally Heart: regular rate and rhythm, S1, S2 normal, no murmur, click, rub or gallop Abdomen: soft, non-tender; bowel sounds normal; no masses, no organomegaly Lab/Radiology/Diagnostic Review: Laboratory review: POC Glucose: Lab Results Component Value Date GLUCOSE 295 (H) 10/30/2023 GLUCOSE 292 (H) 10/30/2023 Latest Reference Range & Units Most Recent Hgb A1C 4.0 - 5.6 % 8.1 (H) 10/16/23 15:27 (H): Data is abnormally high Assessment /Plan Principal Problem: CAD in [place] artery 1. Uncontrolled type 1 diabetes, A1c noted to be 8.1% 10/14, BG 200's, advised to bolus Q4hrs with PD. On Omnipod pump, Dexcom G6 Pump setting, Basal settin.5 >>>3 units an hour 10:00 p.m. to 8:00 a.m., 2.5>>>1.8. units 8:00 a.m. to 10:00 p.m. Bolus setting carb ratio 7>>>9, correction factor 20>>.25 Levothyroxine 25 mcg daily. Discussed with ptSharath Patrick once ready per primary team can go home on current pump settings, advised to follow-up with me in clinic in 4-6 weeks. This note was transcribed using Speech Recognition software. May contain unintended grammar and spelling errors. If there are any questions or major errors, please contact me. Thank you for allowing us to participate in the care of this patient. We will continue to follow. If you have any questions, please don't hesitate to call. Augustin Bethea MD [facility] [email or web address] Office phone: [phone] Office fax: [phone] * Post-Procedure Note - Sugar Swanson RN - 10/30/2023 8:35 AM CDT Peritoneal Dialysis Treatment Summary: Juvenal Garvin Jr. received peritoneal dialysis on 10/29/2023 PD catheter exit site: PD catheter dressing change completed and topical antibiotic applied per orders CCPD Duration: 8.5 hours Fill volumes: 2500 ml Dianeal solution: 1- 6000 ml bag of 2.5% with 3000 units of heparin, 1 - 6000 ml bag of 4.25% with 3000 units of heparin and 1- 2500 ml bag of 7.5% with 1250 units of heparin Additives: Heparin Number of cycles: 4 Last fill volume: 1000 ml Total UF volume: 2339 Initial drain volume: 2756 CAPD In Out In Out In Out In Out In Out In Out Volume in/out: Dwell time: Number of exchanges per day: Dianeal Solution: Additives: Comments: Clear yellow effluent. No issues with PD. Dressing C/D/I. * Plan of Care - Cyndi Persaud RN - 10/29/2023 4:13 PM CDT Goals: Clinical Goals for the Shift: VSS. Afebrile. Room air. NSR. Monitor heart rate and rhythm. Manage pain. Walk x3. Manage blood sugars. Ensure safety and comfort. Summary: VSS. Afebrile. Room air. NSR. Pain treated with [place]. ABX started for patients right leg.Lower dopplers completed. * Post-Procedure Note - Irma Connelly RN - 10/29/2023 4:22 AM CDT Peritoneal Dialysis Treatment Summary: Juvenal Garvin Jr. received peritoneal dialysis on 10/28/2023 PD catheter exit site: PD catheter dressing change completed and topical antibiotic applied per orders CCPD CCPD Duration: 8.5 hrs Fill volumes: 2500mL Dianeal solution: #1 & #2 = 2.5% (6L) Additives: Heparin 3000 units to bag #1 & #2 Number of cycles: 4 Last fill volume: 1000ml; #3 = 7.5% (2.5L) with 1250 units of heparin Total UF volume: 1721 Initial drain volume: 2637 CAPD In Out In Out In Out In Out In Out In Out Volume in/out: Dwell time: Number of exchanges per day: Dianeal Solution: Additives: Comments: Pt tolerated PD well. Denied any c/o. PD drsg c/d/I. * Plan of Care - Cyndi Persaud RN - 10/28/2023 5:16 PM CST Goals: Clinical Goals for the Shift: VSS. Afebrile. Room air. NSR. Monitor heart rate and rhythm. Manage pain. Walk x3. Manage blood sugars. Ensure safety and comfort. Summary: VSS. Afebrile. Room air. NSR. Patient pain treated with Utopia. Left herman dressing changed x1 due to leaking. DING ADMIN * Plan of Care - Roel West LCSW - 10/28/2023 3:40 PM CST [employer] Installer covering and followed up with request to learn if patient was approved for inpatient rehabilitation/insurance authorization status. SW inquired with Dr. Mya Frederick and awaiting notification. Intake Coordinators are not on-site and not customary to receive notification from insurance on weekend. DING ADMIN * Consults, Subsequent - Augustin Bethea MD - 10/28/2023 2:50 PM BUILDING ADMIN Endocrine Note Reason for Consult: type 1 DM post op, insulin pump at home. uncontrolled, ESRD on PD Subjective Doing well. BG bit high. Past Medical History: Diagnosis Date CAD (coronary artery disease) Chest pain Diabetes mellitus (HCC) Diabetes mellitus type I (HCC) Dialysis patient (HCC) ESRD on dialysis (HCC) GERD (gastroesophageal reflux disease) Hyperlipidemia Hypertension Sleep apnea SOB (shortness of breath) Past Surgical History: Procedure Laterality Date APPENDECTOMY Appendectomy APPENDECTOMY CENTRAL LINE PLACEMENT > 5 YEARS N/A 06/18/2022 CORONARY ANGIOPLASTY WITH STENT PLACEMENT FEMUR SURGERY KNEE SURGERY knee surgery OPEN REDUCTION INTERNAL FIXATION ORIF OTHER SURGICAL HISTORY eye surg-vitrectomy Medications Prior to Admission Medication Sig Dispense Refill Last Dose acetaminophen 500 mg capsule Take 2 capsules (1,000 mg total) by mouth every 6 (six) hours as needed for pain 30 tablet 1 Past Week aspirin 81 mg enteric coated tablet Take 1 tablet (81 mg total) by mouth daily Past Week atorvastatin (LIPITOR) 80 mg tablet Take 1 tablet (80 mg total) by mouth daily 10/12/2023 calcitRIOL (ROCALTROL) 0.25 mcg capsule Take 1 capsule (0.25 mcg total) by mouth daily 10/12/2023 calcium acetate,phosphat bind, (PHOSLO) 667 mg capsule Take 1 capsule (667 mg total) by mouth 4 (four) times a day (with meals and nightly) With meals and snack 10/12/2023 cetirizine (ZyrTEC) 10 mg tablet Take 1 tablet (10 mg total) by mouth daily as needed for allergies10/12/2023 cholecalciferol (VITAMIN D-3) 2000 unit tablet Take 25 tablets (50,000 Units total) by mouth once aweek Past Week clopidogrel (PLAVIX) 75 mg tablet TAKE 1 TABLET BY MOUTH DAILY 90 tablet 0 10/12/2023 colchicine (COLCRYS) 0.6 mg tablet Take 1 tablet (0.6 mg total) by mouth 3 (three) times a week Monday, Monday, Monday10/12/2023 EZETIMIBE ORAL Take 10 mg by mouth daily 10/12/2023 famotidine (PEPCID) 40 mg tablet Take 0.5 tablets (20 mg total) by mouth nightly 10/12/2023 gemfibroziL (LOPID) 600 mg tablet Take 1 tablet (600 mg total) by mouth 2 (two) times a day before breakfast and lunch 10/12/2023 icosapent ethyL (VASCEPA) 1 gram capsule Take 2 capsules (2 g total) by mouth 2 (two) times a day 10/12/2023 insulin lispro (HumaLOG, ADMELOG) 100 unit/mL vial for injection THIS IS FOR THE INSULIN PUMP: Continue [employer] 5 insulin pump with Mpayy G6 CGM at home settings: TIME BASAL RATE TOTAL BASAL DAILY DOSE: 65.85 0330 1.7 units/hour 0800 0.8 units/hour 2000 5.8 units/hour 10/12/2023 isosorbide mononitrate ER (IMDUR) 30 mg 24 hr tablet TAKE 1 TABLET BY MOUTH EVERY DAY 90 tablet 0 10/12/2023 metoprolol (LOPRESSOR) 100 mg tablet Take 1 tablet (100 mg total) by mouth every 12 (twelve) hours 10/12/2023 NIFEdipine (NIFEdipine XL) 90 mg 24 hr tablet Take 1 tablet (90 mg total) by mouth daily 10/12/2023 omeprazole (PriLOSEC) 20 mg capsule Take 1 capsule (20 mg total) by mouth daily 10/12/2023 potassium chloride ER 10 mEq CR tablet Take 2 tablet/capsule (20 mEq total) by mouth nightly 10/12/2023 ranolazine ER (RANEXA) 500 mg 12 hr tablet Take 1 tablet (500 mg total) by mouth 2 (two) times a day 10/12/2023 losartan (COZAAR) 25 mg tablet Take 0.5 tablets (12.5 mg total) by mouth daily 15 tablet 11 pen needle, diabetic (BD Ultra-Fine Short Pen Needle) 31 gauge x 5/16 needle U ONE PEN NEEDLE TO INJ INSULIN SC QID (Patient not taking: Reported on 10/14/2023) Not Taking Allergies Allergen Reactions Allopurinol Other (See comments) [...] Rash Iodinated Diagnostic Agents Ticagrelor Rash Rash Social History Tobacco Use Smoking status: Never Smokeless tobacco: Former Substance and Sexual Activity Drug use: No Sexual activity: Defer Alcohol Use: Not At Risk (06/07/2022) AUDIT-C Frequency of Alcohol Consumption: Monthly or less Average Number of Drinks: 3 or 4 Frequency of Binge Drinking: Never Family History Problem Relation Age of Onset Heart attack Father Review of Systems: Review of systems per HPI and otherwise all other systems are negative Objective Vitals: 24hr Min/Max: Temp Min: 36.6 ??C (97.8 ??F) Max: 37 ??C (98.6 ??F) Pulse Min: 58 Max: 74 BP Min: 131/62 Max: 149/60 Resp Min: 18 Max: 20 SpO2 Min: 92 % Max: 99 % Most Recent : Vitals: 10/28/23 1223 BP: 135/71 Pulse: 58 Resp: 18 Temp: 37 ??C (98.6 ??F) SpO2: 96% I/O last 2 completed shifts: In: 276.8 [P.O.:145; I.V.:131.8] Out: 8167 [Urine:200; Other:7967] No intake/output data recorded. Physical Exam: General appearance: appears stated age and cooperative Lungs: clear to auscultation bilaterally Heart: regular rate and rhythm, S1, S2 normal, no murmur, click, rub or gallop Abdomen: soft, non-tender; bowel sounds normal; no masses, no organomegaly Lab/Radiology/Diagnostic Review: Laboratory review: POC Glucose: Lab Results Component Value Date GLUCOSE 201 (H) 10/28/2023 GLUCOSE 270 (H) 10/28/2023 Latest Reference Range & Units Most Recent Hgb A1C 4.0 - 5.6 % 8.1 (H) 10/16/23 15:27 (H): Data is abnormally high Assessment /Plan Principal Problem: CAD in [place] artery 1. Uncontrolled type 1 diabetes, A1c noted to be 8.1% 10/14, BG 100's, advised to bolus Q4hrs with PD. On Omnipod pump, Dexcom G6 Pump setting, Basal settin units an hour 10:00 p.m. to 8:00 a.m., 1.8. units 8:00 a.m. to 10:00 p.m. Bolus setting carb ratio 9, correction factor 25 Start Levothyroxine 25 mcg daily. Discussed with ptSharath Patrick once ready per primary team can go home on current pump settings, advised to follow-up with me in clinic in 4-6 weeks. This note was transcribed using Speech Recognition software. May contain unintended grammar and spelling errors. If there are any questions or major errors, please contact me. Thank you for allowing us to participate in the care of this patient. We will continue to follow. If you have any questions, please don't hesitate to call. Augustin Bethea MD [email or web address] affairs medical centerBright Computing Office phone: [phone] Office fax: [phone] DING ADMIN DING ADMIN * Post-Procedure Note - Basilia John RN - 10/28/2023 7:14 AM BUILDING ADMIN Peritoneal Dialysis Treatment Summary: Juvenla Michael Garvin Jr. received peritoneal dialysis on 10/27/2023 PD catheter exit site: PD catheter dressing change completed and topical antibiotic applied per orders CCPD Duration: 8.5hrs Fill volumes: 2500ml Dianeal solution: #1 & #2 = 2.5% (6L) Additives: Heparin 3000 units to bag #1 & #2 Number of cycles: 4 Last fill volume: 1000ml; #3 = 7.5% (2.5L) with 1250 units of heparin Total UF volume: 1680ml Initial drain volume: 2857ml CAPD In Out In Out In Out In Out In Out In Out Volume in/out: Dwell time: Number of exchanges per day: Dianeal Solution: Additives: Comments: Pt tolerated PD well. Denied any c/o. PD drsg D&I DING ADMIN * Consults, Subsequent - Augustin Bethea MD - 10/27/2023 5:47 PM BUILDING ADMIN Endocrine Note Reason for Consult: type 1 DM post op, insulin pump at home. uncontrolled, ESRD on PD Subjective Doing well. BG bit high. Past Medical History: Diagnosis Date CAD (coronary artery disease) Chest pain Diabetes mellitus (HCC) Diabetes mellitus type I (HCC) Dialysis patient (HCC) ESRD on dialysis (HCC) GERD (gastroesophageal reflux disease) Hyperlipidemia Hypertension Sleep apnea SOB (shortness of breath) Past Surgical History: Procedure Laterality Date APPENDECTOMY Appendectomy APPENDECTOMY CENTRAL LINE PLACEMENT > 5 YEARS N/A 06/18/2022 CORONARY ANGIOPLASTY WITH STENT PLACEMENT FEMUR SURGERY KNEE SURGERY knee surgery OPEN REDUCTION INTERNAL FIXATION ORIF OTHER SURGICAL HISTORY eye surg-vitrectomy Medications Prior to Admission Medication Sig Dispense Refill Last Dose acetaminophen 500 mg capsule Take 2 capsules (1,000 mg total) by mouth every 6 (six) hours as needed for pain 30 tablet 1 Past Week aspirin 81 mg enteric coated tablet Take 1 tablet (81 mg total) by mouth daily Past Week atorvastatin (LIPITOR) 80 mg tablet Take 1 tablet (80 mg total) by mouth daily 10/12/2023 calcitRIOL (ROCALTROL) 0.25 mcg capsule Take 1 capsule (0.25 mcg total) by mouth daily 10/12/2023 calcium acetate,phosphat bind, (PHOSLO) 667 mg capsule Take 1 capsule (667 mg total) by mouth 4 (four) times a day (with meals and nightly) With meals and snack 10/12/2023 cetirizine (ZyrTEC) 10 mg tablet Take 1 tablet (10 mg total) by mouth daily as needed for allergies10/12/2023 cholecalciferol (VITAMIN D-3) 2000 unit tablet Take 25 tablets (50,000 Units total) by mouth once aweek Past Week clopidogrel (PLAVIX) 75 mg tablet TAKE 1 TABLET BY MOUTH DAILY 90 tablet 0 10/12/2023 colchicine (COLCRYS) 0.6 mg tablet Take 1 tablet (0.6 mg total) by mouth 3 (three) times a week Monday, Monday, Monday10/12/2023 EZETIMIBE ORAL Take 10 mg by mouth daily 10/12/2023 famotidine (PEPCID) 40 mg tablet Take 0.5 tablets (20 mg total) by mouth nightly 10/12/2023 gemfibroziL (LOPID) 600 mg tablet Take 1 tablet (600 mg total) by mouth 2 (two) times a day before breakfast and lunch 10/12/2023 icosapent ethyL (VASCEPA) 1 gram capsule Take 2 capsules (2 g total) by mouth 2 (two) times a day 10/12/2023 insulin lispro (HumaLOG, ADMELOG) 100 unit/mL vial for injection THIS IS FOR THE INSULIN PUMP: Continue Omnipod 5 insulin pump with [employer] G6 CGM at home settings: TIME BASAL RATE TOTAL BASAL DAILY DOSE: 65.85 0330 1.7 units/hour 0800 0.8 units/hour 2000 5.8 units/hour 10/12/2023 isosorbide mononitrate ER (IMDUR) 30 mg 24 hr tablet TAKE 1 TABLET BY MOUTH EVERY DAY 90 tablet 0 10/12/2023 metoprolol (LOPRESSOR) 100 mg tablet Take 1 tablet (100 mg total) by mouth every 12 (twelve) hours 10/12/2023 NIFEdipine (NIFEdipine XL) 90 mg 24 hr tablet Take 1 tablet (90 mg total) by mouth daily 10/12/2023 omeprazole (PriLOSEC) 20 mg capsule Take 1 capsule (20 mg total) by mouth daily 10/12/2023 potassium chloride ER 10 mEq CR tablet Take 2 tablet/capsule (20 mEq total) by mouth nightly 10/12/2023 ranolazine ER (RANEXA) 500 mg 12 hr tablet Take 1 tablet (500 mg total) by mouth 2 (two) times a day 10/12/2023 losartan (COZAAR) 25 mg tablet Take 0.5 tablets (12.5 mg total) by mouth daily 15 tablet 11 pen needle, diabetic (BD Ultra-Fine Short Pen Needle) 31 gauge x 5/16 needle U ONE PEN NEEDLE TO INJ INSULIN SC QID (Patient not taking: Reported on 10/14/2023) Not Taking Allergies Allergen Reactions Allopurinol Other (See comments) [...] Rash Iodinated Diagnostic Agents Ticagrelor Rash Rash Social History Tobacco Use Smoking status: Never Smokeless tobacco: Former Substance and Sexual Activity Drug use: No Sexual activity: Defer Alcohol Use: Not At Risk (06/07/2022) AUDIT-C Frequency of Alcohol Consumption: Monthly or less Average Number of Drinks: 3 or 4 Frequency of Binge Drinking: Never Family History Problem Relation Age of Onset Heart attack Father Review of Systems: Review of systems per HPI and otherwise all other systems are negative Objective Vitals: 24hr Min/Max: Temp Min: 36.6 ??C (97.8 ??F) Max: 36.9 ??C (98.4 ??F) Pulse Min: 55 Max: 64 BP Min: 115/51 Max: 154/66 Resp Min: 18 Max: 18 SpO2 Min: 96 % Max: 99 % Most Recent : Vitals: 10/27/23 1611 BP: 131/52 Pulse: 61 Resp: 18 Temp: 36.8 ??C (98.2 ??F) SpO2: 99% I/O last 2 completed shifts: In: 973 [P.O.:848; I.V.:125] Out: 3384 [Other:3384] I/O this shift: In: 156.8 [P.O.:25; I.V.:131.8] Out: 3630 [Urine:200; Other:3430] Physical Exam: General appearance: appears stated age and cooperative Lungs: clear to auscultation bilaterally Heart: regular rate and rhythm, S1, S2 normal, no murmur, click, rub or gallop Abdomen: soft, non-tender; bowel sounds normal; no masses, no organomegaly Lab/Radiology/Diagnostic Review: Laboratory review: POC Glucose: Lab Results Component Value Date GLUCOSE 232 (H) 10/27/2023 GLUCOSE 192 10/27/2023 Latest Reference Range & Units Most Recent Hgb A1C 4.0 - 5.6 % 8.1 (H) 10/16/23 15:27 (H): Data is abnormally high Assessment /Plan Principal Problem: CAD in [place] artery 1. Uncontrolled type 1 diabetes, A1c noted to be 8.1% 10/14, BG 200's On Omnipod pump, Dexcom G6 Pump setting, Basal settin>>>2.7 units an hour 10:00 p.m. to 8:00 a.m., 1.8. units 8:00 a.m. to 10:00 p.m. Bolus setting carb ratio 9, correction factor 25 Discussed with pt. Celina once ready per primary team can go home on current pump settings, advised to follow-up with me in clinic in 4-6 weeks. This note was transcribed using Speech Recognition software. May contain unintended grammar and spelling errors. If there are any questions or major errors, please contact me. Thank you for allowing us to participate in the care of this patient. We will continue to follow. If you have any questions, please don't hesitate to call. Augustin Bethea MD [facility] [email or web address] Office phone: [phone] Office fax: [phone] DING ADMIN * Plan of Care - Genie Benjamin RN - 10/27/2023 12:55 PM CST [facility] inpatient acute rehabilitation liaison pursuing insurance authorization for rehab when patient medically stable for discharge to rehab. DING ADMIN * Post-Procedure Note - Radha Mercado RN - 10/27/2023 9:15 AM CST Peritoneal Dialysis Treatment Summary: Juvenal Garvin Jr. received peritoneal dialysis on 10/26/2023 PD catheter exit site: PD catheter dressing change completed and topical antibiotic applied per orders CCPD ccpd Duration: 8.5 hours Fill volumes: 2500 mls Dianeal solution: 2.5% 6000 mls with 3000 units Heparin x bag # 1 & 2. Extraneal 7.5% 2500 mls with 1250 units Heparin bag # 3 Additives: Heparin Number of cycles: 4 Last fill volume: 2000 Total UF volume: 1715 Initial drain volume: 1425 CAPD In Out In Out In Out In Out In Out In Out Volume in/out: Dwell time: Number of exchanges per day: Dianeal Solution: Additives: Comments: Tolerated tx without issues. Effluent clear yellow. DING ADMIN * Consults, Subsequent - Augustin Bethea MD - 10/26/2023 6:25 PM BUILDING ADMIN Endocrine Note Reason for Consult: type 1 DM post op, insulin pump at home. uncontrolled, ESRD on PD Subjective Doing well. BG bit high. Past Medical History: Diagnosis Date CAD (coronary artery disease) Chest pain Diabetes mellitus (HCC) Diabetes mellitus type I (HCC) Dialysis patient (HCC) ESRD on dialysis (HCC) GERD (gastroesophageal reflux disease) Hyperlipidemia Hypertension Sleep apnea SOB (shortness of breath) Past Surgical History: Procedure Laterality Date APPENDECTOMY Appendectomy APPENDECTOMY CENTRAL LINE PLACEMENT > 5 YEARS N/A 06/18/2022 CORONARY ANGIOPLASTY WITH STENT PLACEMENT FEMUR SURGERY KNEE SURGERY knee surgery OPEN REDUCTION INTERNAL FIXATION ORIF OTHER SURGICAL HISTORY eye surg-vitrectomy Medications Prior to Admission Medication Sig Dispense Refill Last Dose acetaminophen 500 mg capsule Take 2 capsules (1,000 mg total) by mouth every 6 (six) hours as needed for pain 30 tablet 1 Past Week aspirin 81 mg enteric coated tablet Take 1 tablet (81 mg total) by mouth daily Past Week atorvastatin (LIPITOR) 80 mg tablet Take 1 tablet (80 mg total) by mouth daily 10/12/2023 calcitRIOL (ROCALTROL) 0.25 mcg capsule Take 1 capsule (0.25 mcg total) by mouth daily 10/12/2023 calcium acetate,phosphat bind, (PHOSLO) 667 mg capsule Take 1 capsule (667 mg total) by mouth 4 (four) times a day (with meals and nightly) With meals and snack 10/12/2023 cetirizine (ZyrTEC) 10 mg tablet Take 1 tablet (10 mg total) by mouth daily as needed for allergies10/12/2023 cholecalciferol (VITAMIN D-3) 2000 unit tablet Take 25 tablets (50,000 Units total) by mouth once aweek Past Week clopidogrel (PLAVIX) 75 mg tablet TAKE 1 TABLET BY MOUTH DAILY 90 tablet 0 10/12/2023 colchicine (COLCRYS) 0.6 mg tablet Take 1 tablet (0.6 mg total) by mouth 3 (three) times a week Monday, Monday, Monday10/12/2023 EZETIMIBE ORAL Take 10 mg by mouth daily 10/12/2023 famotidine (PEPCID) 40 mg tablet Take 0.5 tablets (20 mg total) by mouth nightly 10/12/2023 gemfibroziL (LOPID) 600 mg tablet Take 1 tablet (600 mg total) by mouth 2 (two) times a day before breakfast and lunch 10/12/2023 icosapent ethyL (VASCEPA) 1 gram capsule Take 2 capsules (2 g total) by mouth 2 (two) times a day 10/12/2023 insulin lispro (HumaLOG, ADMELOG) 100 unit/mL vial for injection THIS IS FOR THE INSULIN PUMP: Continue Omnipod 5 insulin pump with [employer] G6 CGM at home settings: TIME BASAL RATE TOTAL BASAL DAILY DOSE: 65.85 0330 1.7 units/hour 0800 0.8 units/hour 2000 5.8 units/hour 10/12/2023 isosorbide mononitrate ER (IMDUR) 30 mg 24 hr tablet TAKE 1 TABLET BY MOUTH EVERY DAY 90 tablet 0 10/12/2023 metoprolol (LOPRESSOR) 100 mg tablet Take 1 tablet (100 mg total) by mouth every 12 (twelve) hours 10/12/2023 NIFEdipine (NIFEdipine XL) 90 mg 24 hr tablet Take 1 tablet (90 mg total) by mouth daily 10/12/2023 omeprazole (PriLOSEC) 20 mg capsule Take 1 capsule (20 mg total) by mouth daily 10/12/2023 potassium chloride ER 10 mEq CR tablet Take 2 tablet/capsule (20 mEq total) by mouth nightly 10/12/2023 ranolazine ER (RANEXA) 500 mg 12 hr tablet Take 1 tablet (500 mg total) by mouth 2 (two) times a day 10/12/2023 losartan (COZAAR) 25 mg tablet Take 0.5 tablets (12.5 mg total) by mouth daily 15 tablet 11 pen needle, diabetic (BD Ultra-Fine Short Pen Needle) 31 gauge x 5/16 needle U ONE PEN NEEDLE TO INJ INSULIN SC QID (Patient not taking: Reported on 10/14/2023) Not Taking Allergies Allergen Reactions Allopurinol Other (See comments) [...] Rash Iodinated Diagnostic Agents Ticagrelor Rash Rash Social History Tobacco Use Smoking status: Never Smokeless tobacco: Former Substance and Sexual Activity Drug use: No Sexual activity: Defer Alcohol Use: Not At Risk (06/07/2022) AUDIT-C Frequency of Alcohol Consumption: Monthly or less Average Number of Drinks: 3 or 4 Frequency of Binge Drinking: Never Family History Problem Relation Age of Onset Heart attack Father Review of Systems: Review of systems per HPI and otherwise all other systems are negative Objective Vitals: 24hr Min/Max: Temp Min: 36.4 ??C (97.6 ??F) Max: 37.1 ??C (98.7 ??F) Pulse Min: 57 Max: 64 BP Min: 110/62 Max: 164/61 Resp Min: 18 Max: 18 SpO2 Min: 97 % Max: 100 % Most Recent : Vitals: 10/26/23 1620 BP: 144/59 Pulse: 62 Resp: 18 Temp: 36.8 ??C (98.3 ??F) SpO2: 100% I/O last 2 completed shifts: In: 1240 [P.O.:240; Other:1000] Out: 3404 [Urine:150; Other:3254] I/O this shift: In: 848 [P.O.:848] Out: 3384 [Other:3384] Physical Exam: General appearance: appears stated age and cooperative Lungs: clear to auscultation bilaterally Heart: regular rate and rhythm, S1, S2 normal, no murmur, click, rub or gallop Abdomen: soft, non-tender; bowel sounds normal; no masses, no organomegaly Lab/Radiology/Diagnostic Review: Laboratory review: POC Glucose: Lab Results Component Value Date GLUCOSE 333 (H) 10/26/2023 GLUCOSE 206 (H) 10/26/2023 Latest Reference Range & Units Most Recent Hgb A1C 4.0 - 5.6 % 8.1 (H) 10/16/23 15:27 (H): Data is abnormally high Assessment /Plan Principal Problem: CAD in [place] artery 1. Uncontrolled type 1 diabetes, A1c noted to be 8.1% 10/14, BG 200's On Omnipod pump, Dexcom G6 Pump setting, Basal settin.7 units an hour 10:00 p.m. to 8:00 a.m., 1.8. >>>1.60 units 8:00 a.m. to 10:00 p.m. Bolus setting carb ratio 9, correction factor 25 Discussed with pt. Dispo once ready per primary team can go home on current pump settings, advised to follow-up with me in clinic in 4-6 weeks. This note was transcribed using Speech Recognition software. May contain unintended grammar and spelling errors. If there are any questions or major errors, please contact me. Thank you for allowing us to participate in the care of this patient. We will continue to follow. If you have any questions, please don't hesitate to call. Augustin Bethea MD [facility] [email or web address] Office phone: [phone] Office fax: [phone] DING ADMIN * Plan of Care - Manda Solorzano RN - 10/26/2023 12:06 PM CST Per LIANET, pt has been accepted to [facility] Rehab (auth pending). Pt will be removed from [facility] schedule and no services provided at this time. DING ADMIN * Plan of Care - Jacquelin Veliz MSW - 10/26/2023 10:43 AM CST HEAD MECHANIC received message from Michelle with [facility] and they are able to accept Pt. They will start insurance authorization as PA feels that Pt is close to discharge. HEAD MECHANIC met with Pt at bedside [facility] for him. Pt states that he is agreeable to discharging to acute rehab when ready for discharge. DING ADMIN * Post-Procedure Note - Basilia John RN - 10/26/2023 7:30 AM BUILDING ADMIN Peritoneal Dialysis Treatment Summary: Juvenal Garvin Jr. received peritoneal dialysis on 10/25/2023 PD catheter exit site: PD catheter dressing change completed and topical antibiotic applied per orders CCPD Duration: 8.5hrs Fill volumes: 2500ml Dianeal solution: #1 & #2 = 2.5% (6L x2); Additives: Heparin in #1 & #2 = 3000 units of heparin each bag Number of cycles: 4 Last fill volume: 1000 ml; #3 = 7.5% (2.5L) with 1250 units of heparin Total UF volume: 1794ml Initial drain volume: 1590ml CAPD In Out In Out In Out In Out In Out In Out Volume in/out: Dwell time: Number of exchanges per day: Dianeal Solution: Additives: Comments: Pt tolerated treatment well. Denied any c/o. PD drsg D&I DING ADMIN * Plan of Care - Cyndi Persaud RN - 10/25/2023 4:14 PM CST Goals: Clinical Goals for the Shift: VSS. Afebrile. Room air. NSR. Monitor heart rate and rhythm. Manage pain. Manage heparin drip. Monitor PTTs. PD. Walk x3. Ensure safety and comfort. Summary: VSS. Afebrile. Room air. NSR. Pain treated with a one time dose of [place]. Most recent PTT is 72. Heparin drip at 12.7units/kg/hr. DING ADMIN * Consults, Subsequent - Augustin Bethea MD - 10/25/2023 11:14 AM BUILDING ADMIN Endocrine Note Reason for Consult: type 1 DM post op, insulin pump at home. uncontrolled, ESRD on PD Subjective walking with therapy, doing well. Noted to have a blood sugar of 77 this a.m.. Past Medical History: Diagnosis Date CAD (coronary artery disease) Chest pain Diabetes mellitus (HCC) Diabetes mellitus type I (HCC) Dialysis patient (HCC) ESRD on dialysis (HCC) GERD (gastroesophageal reflux disease) Hyperlipidemia Hypertension Sleep apnea SOB (shortness of breath) Past Surgical History: Procedure Laterality Date APPENDECTOMY Appendectomy APPENDECTOMY CENTRAL LINE PLACEMENT > 5 YEARS N/A 06/18/2022 CORONARY ANGIOPLASTY WITH STENT PLACEMENT FEMUR SURGERY KNEE SURGERY knee surgery OPEN REDUCTION INTERNAL FIXATION ORIF OTHER SURGICAL HISTORY eye surg-vitrectomy Medications Prior to Admission Medication Sig Dispense Refill Last Dose acetaminophen 500 mg capsule Take 2 capsules (1,000 mg total) by mouth every 6 (six) hours as needed for pain 30 tablet 1 Past Week aspirin 81 mg enteric coated tablet Take 1 tablet (81 mg total) by mouth daily Past Week atorvastatin (LIPITOR) 80 mg tablet Take 1 tablet (80 mg total) by mouth daily 10/12/2023 calcitRIOL (ROCALTROL) 0.25 mcg capsule Take 1 capsule (0.25 mcg total) by mouth daily 10/12/2023 calcium acetate,phosphat bind, (PHOSLO) 667 mg capsule Take 1 capsule (667 mg total) by mouth 4 (four) times a day (with meals and nightly) With meals and snack 10/12/2023 cetirizine (ZyrTEC) 10 mg tablet Take 1 tablet (10 mg total) by mouth daily as needed for allergies10/12/2023 cholecalciferol (VITAMIN D-3) 2000 unit tablet Take 25 tablets (50,000 Units total) by mouth once aweek Past Week clopidogrel (PLAVIX) 75 mg tablet TAKE 1 TABLET BY MOUTH DAILY 90 tablet 0 10/12/2023 colchicine (COLCRYS) 0.6 mg tablet Take 1 tablet (0.6 mg total) by mouth 3 (three) times a week Monday, Monday, Monday10/12/2023 EZETIMIBE ORAL Take 10 mg by mouth daily 10/12/2023 famotidine (PEPCID) 40 mg tablet Take 0.5 tablets (20 mg total) by mouth nightly 10/12/2023 gemfibroziL (LOPID) 600 mg tablet Take 1 tablet (600 mg total) by mouth 2 (two) times a day before breakfast and lunch 10/12/2023 icosapent ethyL (VASCEPA) 1 gram capsule Take 2 capsules (2 g total) by mouth 2 (two) times a day 10/12/2023 insulin lispro (HumaLOG, ADMELOG) 100 unit/mL vial for injection THIS IS FOR THE INSULIN PUMP: Continue [employer] 5 insulin pump with Mpayy G6 CGM at home settings: TIME BASAL RATE TOTAL BASAL DAILY DOSE: 65.85 0330 1.7 units/hour 0800 0.8 units/hour 2000 5.8 units/hour 10/12/2023 isosorbide mononitrate ER (IMDUR) 30 mg 24 hr tablet TAKE 1 TABLET BY MOUTH EVERY DAY 90 tablet 0 10/12/2023 metoprolol (LOPRESSOR) 100 mg tablet Take 1 tablet (100 mg total) by mouth every 12 (twelve) hours 10/12/2023 NIFEdipine (NIFEdipine XL) 90 mg 24 hr tablet Take 1 tablet (90 mg total) by mouth daily 10/12/2023 omeprazole (PriLOSEC) 20 mg capsule Take 1 capsule (20 mg total) by mouth daily 10/12/2023 potassium chloride ER 10 mEq CR tablet Take 2 tablet/capsule (20 mEq total) by mouth nightly 10/12/2023 ranolazine ER (RANEXA) 500 mg 12 hr tablet Take 1 tablet (500 mg total) by mouth 2 (two) times a day 10/12/2023 losartan (COZAAR) 25 mg tablet Take 0.5 tablets (12.5 mg total) by mouth daily 15 tablet 11 pen needle, diabetic (BD Ultra-Fine Short Pen Needle) 31 gauge x 5/16 needle U ONE PEN NEEDLE TO INJ INSULIN SC QID (Patient not taking: Reported on 10/14/2023) Not Taking Allergies Allergen Reactions Allopurinol Other (See comments) [...] Rash Iodinated Diagnostic Agents Ticagrelor Rash Rash Social History Tobacco Use Smoking status: Never Smokeless tobacco: Former Substance and Sexual Activity Drug use: No Sexual activity: Defer Alcohol Use: Not At Risk (06/07/2022) AUDIT-C Frequency of Alcohol Consumption: Monthly or less Average Number of Drinks: 3 or 4 Frequency of Binge Drinking: Never Family History Problem Relation Age of Onset Heart attack Father Review of Systems: Review of systems per HPI and otherwise all other systems are negative Objective Vitals: 24hr Min/Max: Temp Min: 36.3 ??C (97.3 ??F) Max: 36.9 ??C (98.4 ??F) Pulse Min: 61 Max: 65 BP Min: 129/57 Max: 147/58 Resp Min: 18 Max: 20 SpO2 Min: 95 % Max: 100 % Most Recent : Vitals: 10/25/23 0835 BP: Pulse: 62 Resp: Temp: SpO2: I/O last 2 completed shifts: In: 1604 [P.O.:980; I.V.:624] Out: 3365 [Other:3365] I/O this shift: In: 1000 [Other:1000] Out: 3254 [Other:3254] Physical Exam: General appearance: appears stated age and cooperative Lungs: clear to auscultation bilaterally Heart: regular rate and rhythm, S1, S2 normal, no murmur, click, rub or gallop Abdomen: soft, non-tender; bowel sounds normal; no masses, no organomegaly Lab/Radiology/Diagnostic Review: Laboratory review: POC Glucose: Lab Results Component Value Date GLUCOSE 119 10/25/2023 GLUCOSE 97 10/25/2023 Latest Reference Range & Units Most Recent Hgb A1C 4.0 - 5.6 % 8.1 (H) 10/16/23 15:27 (H): Data is abnormally high Assessment /Plan Principal Problem: CAD in [place] artery 1. Uncontrolled type 1 diabetes, A1c noted to be 8.1% 10/14, BG 77 this a.m. On Omnipod pump, Dexcom G6 Pump setting, Basal setting slight lowered 2.7>>>3 units an hour 10:00 p.m. to 8:00 a.m., 1.6. >>>1.65 units 8:00 a.m. to 10:00 p.m. Bolus setting carb ratio 9, correction factor 25 Discussed with pt. Omaro once ready per primary team can go home on current pump settings, advised to follow-up with me in clinic in 4-6 weeks. This note was transcribed using Speech Recognition software. May contain unintended grammar and spelling errors. If there are any questions or major errors, please contact me. Thank you for allowing us to participate in the care of this patient. We will continue to follow. If you have any questions, please don't hesitate to call. Augustin Bethea MD [facility] [email or web address] Office phone: [phone] Office fax: [phone] DING ADMIN * Post-Procedure Note - Radha Mercado RN - 10/25/2023 10:08 AM CST Peritoneal Dialysis Treatment Summary: Juvenal Garvin Jr. received peritoneal dialysis on 10/24/2023 PD catheter exit site: PD catheter dressing change completed and topical antibiotic applied per orders CCPD Duration: 8.5 Fill volumes: 2500 mls Dianeal solution: 2.5% 6000 mls with Heparin 3000 units bags 1 & 2. Extraneal 7.5 % Ambu Flex 2500 mls with Heparin 1250 units bag # 3 Additives: Heparin Number of cycles: 4 Last fill volume: 1000 mls Total UF volume: 2122 mls Initial drain volume: 1132 mls CAPD In Out In Out In Out In Out In Out In Out Volume in/out: Dwell time: Number of exchanges per day: Dianeal Solution: Additives: Comments: Tolerated tx well. Effluent clear, yellow. DING ADMIN * Plan of Care - Carey Alas RN - 10/24/2023 6:12 PM CST Goals: Clinical Goals for the Shift: VSS, monitor tele and labs, IS, ambulation, pain management Summary: VSS, monitor tele and labs, IS, ambulation, pain management. Pain Assessment: 0-10 Pain Score: 0 - No pain Clinical Progression: Not changed Vitals this shift Temp: [36.4 ??C (97.6 ??F)-36.7 ??C (98.1 ??F)] 36.4 ??C (97.6 ??F) Pulse: [59-66] 65 BP: (133-147)/(58-61) 135/61 Resp: [18-20] 20 SpO2: [96 %-98 %] 96 % DING ADMIN * Consults, Subsequent - Augustin Bethea MD - 10/24/2023 11:07 AM BUILDING ADMIN Endocrine Note Reason for Consult: type 1 DM post op, insulin pump at home. uncontrolled, ESRD on PD Subjective On pump. Bg fair. Past Medical History: Diagnosis Date CAD (coronary artery disease) Chest pain Diabetes mellitus (HCC) Diabetes mellitus type I (HCC) Dialysis patient (HCC) ESRD on dialysis (HCC) GERD (gastroesophageal reflux disease) Hyperlipidemia Hypertension Sleep apnea SOB (shortness of breath) Past Surgical History: Procedure Laterality Date APPENDECTOMY Appendectomy APPENDECTOMY CENTRAL LINE PLACEMENT > 5 YEARS N/A 06/18/2022 CORONARY ANGIOPLASTY WITH STENT PLACEMENT FEMUR SURGERY KNEE SURGERY knee surgery OPEN REDUCTION INTERNAL FIXATION ORIF OTHER SURGICAL HISTORY eye surg-vitrectomy Medications Prior to Admission Medication Sig Dispense Refill Last Dose acetaminophen 500 mg capsule Take 2 capsules (1,000 mg total) by mouth every 6 (six) hours as needed for pain 30 tablet 1 Past Week aspirin 81 mg enteric coated tablet Take 1 tablet (81 mg total) by mouth daily Past Week atorvastatin (LIPITOR) 80 mg tablet Take 1 tablet (80 mg total) by mouth daily 10/12/2023 calcitRIOL (ROCALTROL) 0.25 mcg capsule Take 1 capsule (0.25 mcg total) by mouth daily 10/12/2023 calcium acetate,phosphat bind, (PHOSLO) 667 mg capsule Take 1 capsule (667 mg total) by mouth 4 (four) times a day (with meals and nightly) With meals and snack 10/12/2023 cetirizine (ZyrTEC) 10 mg tablet Take 1 tablet (10 mg total) by mouth daily as needed for allergies10/12/2023 cholecalciferol (VITAMIN D-3) 2000 unit tablet Take 25 tablets (50,000 Units total) by mouth once aweek Past Week clopidogrel (PLAVIX) 75 mg tablet TAKE 1 TABLET BY MOUTH DAILY 90 tablet 0 10/12/2023 colchicine (COLCRYS) 0.6 mg tablet Take 1 tablet (0.6 mg total) by mouth 3 (three) times a week Monday, Monday, Monday10/12/2023 EZETIMIBE ORAL Take 10 mg by mouth daily 10/12/2023 famotidine (PEPCID) 40 mg tablet Take 0.5 tablets (20 mg total) by mouth nightly 10/12/2023 gemfibroziL (LOPID) 600 mg tablet Take 1 tablet (600 mg total) by mouth 2 (two) times a day before breakfast and lunch 10/12/2023 icosapent ethyL (VASCEPA) 1 gram capsule Take 2 capsules (2 g total) by mouth 2 (two) times a day 10/12/2023 insulin lispro (HumaLOG, ADMELOG) 100 unit/mL vial for injection THIS IS FOR THE INSULIN PUMP: Continue Omnipod 5 insulin pump with Mpayy G6 CGM at home settings: TIME BASAL RATE TOTAL BASAL DAILY DOSE: 65.85 0330 1.7 units/hour 0800 0.8 units/hour 2000 5.8 units/hour 10/12/2023 isosorbide mononitrate ER (IMDUR) 30 mg 24 hr tablet TAKE 1 TABLET BY MOUTH EVERY DAY 90 tablet 0 10/12/2023 metoprolol (LOPRESSOR) 100 mg tablet Take 1 tablet (100 mg total) by mouth every 12 (twelve) hours 10/12/2023 NIFEdipine (NIFEdipine XL) 90 mg 24 hr tablet Take 1 tablet (90 mg total) by mouth daily 10/12/2023 omeprazole (PriLOSEC) 20 mg capsule Take 1 capsule (20 mg total) by mouth daily 10/12/2023 potassium chloride ER 10 mEq CR tablet Take 2 tablet/capsule (20 mEq total) by mouth nightly 10/12/2023 ranolazine ER (RANEXA) 500 mg 12 hr tablet Take 1 tablet (500 mg total) by mouth 2 (two) times a day 10/12/2023 losartan (COZAAR) 25 mg tablet Take 0.5 tablets (12.5 mg total) by mouth daily 15 tablet 11 pen needle, diabetic (BD Ultra-Fine Short Pen Needle) 31 gauge x 5/16 needle U ONE PEN NEEDLE TO INJ INSULIN SC QID (Patient not taking: Reported on 10/14/2023) Not Taking Allergies Allergen Reactions Allopurinol Other (See comments) [...] Rash Iodinated Diagnostic Agents Ticagrelor Rash Rash Social History Tobacco Use Smoking status: Never Smokeless tobacco: Former Substance and Sexual Activity Drug use: No Sexual activity: Defer Alcohol Use: Not At Risk (06/07/2022) AUDIT-C Frequency of Alcohol Consumption: Monthly or less Average Number of Drinks: 3 or 4 Frequency of Binge Drinking: Never Family History Problem Relation Age of Onset Heart attack Father Review of Systems: Review of systems per HPI and otherwise all other systems are negative Objective Vitals: 24hr Min/Max: Temp Min: 36.5 ??C (97.7 ??F) Max: 37.3 ??C (99.1 ??F) Pulse Min: 58 Max: 67 BP Min: 124/58 Max: 156/63 Resp Min: 18 Max: 22 SpO2 Min: 95 % Max: 99 % Most Recent : Vitals: 10/24/23 0925 BP: Pulse: 66 Resp: Temp: SpO2: I/O last 2 completed shifts: In: 1822 [P.O.:822; Other:1000] Out: 3560 [Urine:100; Other:3460] I/O this shift: In: - Out: 3365 [Other:3365] Physical Exam: General appearance: appears stated age and cooperative Lungs: clear to auscultation bilaterally Heart: regular rate and rhythm, S1, S2 normal, no murmur, click, rub or gallop Abdomen: soft, non-tender; bowel sounds normal; no masses, no organomegaly Lab/Radiology/Diagnostic Review: Laboratory review: POC Glucose: Lab Results Component Value Date GLUCOSE 202 (H) 10/24/2023 GLUCOSE 143 10/24/2023 Latest Reference Range & Units Most Recent Hgb A1C 4.0 - 5.6 % 8.1 (H) 10/16/23 15:27 (H): Data is abnormally high Assessment /Plan Principal Problem: CAD in [place] artery 1. Uncontrolled type 1 diabetes, A1c noted to be 8.1% 10/14, BG 200's in daytime. Patient wanted to be back on his Omnipod pump, already has Dexcom G6 Pump setting, Basal setting slight increase: 3 units an hour 10:00 p.m. to 8:00 a.m., 1.6.5 >>>1.8 units 8:00 a.m. to 10:00 p.m. Bolus setting carb ratio 9, correction factor 25 Discussed with pt. This note was transcribed using Speech Recognition software. May contain unintended grammar and spelling errors. If there are any questions or major errors, please contact me. Thank you for allowing us to participate in the care of this patient. We will continue to follow. If you have any questions, please don't hesitate to call. Augustin Bethea MD [facility] [email or web address] Office phone: [phone] Office fax: [phone] DING ADMIN * Post-Procedure Note - Radha Mercado RN - 10/24/2023 10:35 AM CST Peritoneal Dialysis Treatment Summary: Juvenal Garvin Jr. received peritoneal dialysis on 10/23/2023 PD catheter exit site: PD catheter dressing change completed and topical antibiotic applied per orders CCPD ccpd Duration: 8.5 hours Fill volumes: 2500 mls Dianeal solution: 2.5% 6000 mls 3000 units Heparin bag 1 & 2. Extrneal 7.5 ambu- flex 2500 mls 1250 units of Heparin Additives: Heparin Number of cycles: 4 Last fill volume: 1000 mls Total UF volume: 1913 mls Initial drain volume: 1452 mls CAPD In Out In Out In Out In Out In Out In Out Volume in/out: Dwell time: Number of exchanges per day: Dianeal Solution: Additives: Comments: Tolerated tx without issues. Effluent clear yellow. DING ADMIN * Plan of Care - Lucinda Mathews RRT - 10/23/2023 9:16 PM CST NPPV- pt expresses he will attempt CPAP tonight Patient is tolerating non-invasive ventilation well. Mask fits well with minimal leak. No skin break down noted. Will continue to monitor and titrate per MD order. 2240: Pt resting on V60 APPROX 2300: Per RN, pt states he is not tolerating CPAP, states he cannot breathe and wants it off. RN worked with pt, Placed on RA as was previously prior to CPAP, pt ultimately resting on 4L NC for comfort per RN. Problem: Obstructive Sleep Apnea (BEN) Goal: Patients ability to maintain adequate ventilation during sleep periods will improve Outcome: Progressing DING ADMIN DING ADMIN DING ADMIN * Plan of Care - Carey Alas RN - 10/23/2023 4:54 PM CST Goals: Clinical Goals for the Shift: VSS, monitor tele and labs, IS, ambulation, pain management Summary: VSS, monitor tele and labs, IS, ambulation, pain management, amio gtt Pain Assessment: 0-10 Pain Score: 4 Patient's Stated Pain Goal: No pain Pain Type: Surgical pain Chronic Pain Precipitating Factors: At Rest Chronic Pain Alleviating Factors: Medication;Relaxation Pain Location: Sternum Pain Orientation: Mid Pain Descriptors: Aching Pain Frequency: With movement/cough Pain Onset: Ongoing Clinical Progression: Not changed Pain Interventions: Medication (See MAR) Response to Interventions: No relief Vitals this shift Temp: [36.7 ??C (98.1 ??F)-37.3 ??C (99.1 ??F)] 37.3 ??C (99.1 ??F) Pulse: [65-78] 67 BP: (124-131)/(60-68) 126/63 Resp: [18-20] 20 SpO2: [95 %-99 %] 95 % DING ADMIN * Plan of Care - Genie Benjamin RN - 10/23/2023 12:17 PM CST PT/OT recommending inpatient acute rehab at discharge. Informed patient of above. Patient declined rehab facility list and states he prefers [facility] inpatient acute rehab hospital. Referral sent. Response pending. DING ADMIN * ECIN Note - Genie Benjamin RN - 10/23/2023 12:14 PM CST Images from the original note were not included. Patient Information: OT Eval and Treat Last 72 Hours OT Evaluation Row Name 10/23/23 0710 10/19/23 1035 Chart Reviewed -- Yes -HK Session Type -- Evaluation -HK OT Received On -- 10/19/23 -HK Safe Environment Arm band checked -KB Arm band checked;Patient found in supine -HK Subjective Agreeable to Therapy -KB Agreeable to Therapy -HK Subjective Comment Patient reports being tired this morning. -KB I'm so cold and tired. -HK Additional Pertinent History -- 53 y/o M presents for surgical intervention on 10/14/23 from [facility]. Pt is s/p CABG x 3 (SVG-PDA, SVG-OM, BRICE-LAD) and mechanical AVR on 10/[address] Valero. Pt has history of ESRD on PD, CAD s/p PCI, SC, and DVT on chronic anticoagulation, Type 1 DM, HTN.-HK Occupational Therapy-Patient Goal -- I want to go back home. -HK Precautions Cardiac sternal;Fall risk;Drains - Cardiac sternal;Drains;Fall risk -HK Precaution Handout Issued -- Yes -HK Precaution Comments -- Pt was educated on sternal precautions, but due to drowsiness would benefit from further education. -HK Type of Home -- House -HK Home Layout -- One level -HK Home Access -- Stairs to enter without rails -HK Entrance Stairs-Number of Steps -- 1 -HK Bathroom Shower/Tub -- Tub/shower unit -HK Bathroom Toilet -- Standard -HK Home Mobility Equipment-Available -- Single point cane - Home Mobility Equipment-Currently Using -- Single point cane Uses occassionally -HK Additional Comments -- Pt independent with transfers and mobility at baseline. 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 Pt has R arterial line splint in place which inhibits function of hand. -HK Grooming: Assistance with -- Teeth care -HK LE Dressing: Where assessed -- Supine, bed -HK LE Dressing: Level of assistance -- Maximum Assist -HK LE Dressing: Assistance with -- Don/doff R sock;Don/doff L sock -HK Pain Assessment -- 0-10 -HK Pain Score -- 3 -HK Pain Location -- Sternum -HK Clinical Progression -- -- Post pain 3/10 - Pain Interventions -- Medication (See MAR) -HK Endurance -- Tolerates 30 min activity with multiple rests -HK Activity Tolerance Comments -- Session completed on 2L supplemental O2 via NC. Pre-activity vitals:HR 63, O2 95%, BP 131/58. Post activity: HR 68, O2 97%, BP 132/86. Pt notes some dizziness once sitting EOB, resolves after a few minutes. -HK Cognition Comments -- Pt drowsy and closes eyes multiple times throughout session. Pt exhibits someforgetfulness. -HK Orientation -- Oriented X4 (person, place, time, situation) -HK Level of Assistance 1 -- Moderate Assist -HK Bed Mobility Comments 1 -- Supine to EOB. Pt needs assistance for trunk support and LE management. Pt needed verbal cueing for safety, adhering to sternal precautions, and sequencing. -HK Transfer Level of Assistance 1 -- Moderate Assist -HK Trials/Comments 1 -- Sit <> stand with no device. Pt needed assist for force production as well as cueing for safety, sequencing, and adhering to sternal precautions. Pt had posterior loss of balance prior to sitting. -HK RUE Assessment -- X -HK RUE Comments -- Functionally weak -HK LUE Assessment -- X -HK LUE Comments -- Functionally weak -HK Comments -- Pt has bouts of nausea and dizziness. RN in room checking blood sugar which was low. Once in recliner, pt more alert and symptoms decrease. -HK Safe Environment End of Therapy Session -- Patient left in recliner;Call light within reach;Overbedtable within reach - Prognosis -- Good -HK Problem List -- Decreased upper extremity strength;Decreased endurance;Visual deficit;Decreased functional mobility;Decreased ADL independence;Decreased IADL independence -HK Plan -- Continue with current plan;If this is the last note, consider this the discharge summary - OT Recommendation -- Post-Acute Therapy -HK OT Frequency during current admission -- 3-5x/wk -HK Treatment/Interventions during current admission -- ADL/IADL retraining;Balance Training;Bed mobility;Endurance training;Functional activity;Functional mobility training;Functional transfer training -HK Progress during current admission -- Progressing toward goals - OT Evaluation Complete -- Yes -HK User Jackson (r) = Recorded By, (t) = Taken By, (c) = Cosigned By Initials Name Effective Dates KB Saulo Kimball COTA 09/14/23 - HK Reyes Odom 09/01/23 - OT Treatment Row Name 10/23/23 0710 10/20/23 1440 10/18/23 0655 Session Type Treatment - Treatment -KB -- OT Received On 10/23/23 -KB 10/20/23 -KB 10/18/23 -MM Safe Environment -- Arm band checked -KB -- Subjective -- Agreeable to Therapy -KB -- Subjective Comment -- Patient states that he is groggy. - Pt remains intubated, sedated, and requiring multiple pressors for BP control. Will defer skilled OT at this time and follow up as medically appropriate -MM OT Missed Visit Reason -- -- Other (comment) -MM Precautions -- Cardiac sternal;Drains - -- Pain Assessment No/denies pain - No/denies pain - -- Pain Score -- reports throat discomfort, provided with as needed lozenge available in room - 0 - No pain -KB -- Clinical Progression Not changed -KB Not changed -KB -- Response to Interventions Partial pain relief -KB -- -- Grooming: Where assessed Chair - Chair -KB -- Grooming: Level of assistance Standby Assist -KB Standby Assist -KB -- Grooming: Assistance with Wash/dry face -KB Teeth care;Wash/dry face -KB -- Bathing: Where assessed Sitting;Standing;Chair -KB -- -- Bathing: Level of assistance Minimum Assist Exhibits decreased endurance and shortness of breath with stable vitals during standing component. -KB -- -- Bathing: Assistance with Buttocks;Perineal area;Right arm;Left arm -KB -- -- Bath -- No fully assessed. Based on prior interventions, patient would benefit from long handled sponge due to difficulty accessing lower legs. -KB -- -- LE Dressing: Where assessed -- Sitting;Standing;Edge of bed - -- LE Dressing: Level of assistance -- -- Moderate assist santa/doff B socks with biztalk administrator and sock aid,Minimal assist santa/doff sweatpants with biztalk administrator -KB -- Bed Mobility Comments 1 SBA supine to sit with head of bed raise with moderate verbal cues for sternal precautions -KB -- -- Trials/Comments 1 Minimal assist sit to/from stand from EOB with moderate verbal cues for hand placement secondary to sternal precautions -KB Minimal assist sit to/from stand from recliner with wheeled walker, SBA marching in place with wheeled walker X 30 seconds -KB -- Trials/Comments 2 Minimal assist bed to recliner with wheeled walker taking several steps with assist for safety and management of lines and wires -KB -- -- Overall Cognitive Status WFL -KB WFL -KB -- Arousal/Alertness Lethargic;Alert;Appropriate responses to stimuli -KB Lethargic;Alert -KB -- Memory Appears intact -KB Appears intact -KB -- Current communication Appears Intact -KB Appears Intact -KB -- Orientation Oriented X4 (person, place, time, situation) -KB Oriented X4 (person, place, time, situation) -KB -- Following Commands Follows one step commands without difficulty -KB Follows one step commands without difficulty -KB -- Safety Judgment -- -- moderate cues for sternal precautions -KB -- Awareness of Errors Assistance required to identify errors made;Decreased awareness of errors Moderate cues for sternal precautions -KB -- -- Insight Decreased awareness of deficits -KB Fully aware of deficits -KB -- Endurance -- -- Initial BP of 124/56 in recliner with HR of 62, HR of 74 during functional standingactivity -KB -- Activity Tolerance Comments Requires rest breaks due to SOB. HR of 82 at rest in supine at beginning of session, with BP of 131/68. 95% O2 saturation on room air -KB -- -- Safe Environment End of Therapy Session -- Patient left in recliner;Call light within reach;Overbedtable within reach -KB -- Prognosis Good -KB Good -KB -- Problem List Decreased upper extremity strength;Decreased endurance;Visual deficit;Decreased functional mobility;Decreased ADL independence;Decreased IADL independence -KB Decreased upper extremity strength;Decreased endurance;Visual deficit;Decreased functional mobility;Decreased ADL independence;Decreased IADL independence -KB -- Barriers to Discharge Current Mobility Status;Current ADL Status -KB Current Mobility Status;Current ADL Status -KB -- OT Recommendation Inpatient Rehab Facility -KB Inpatient Rehab Facility -KB -- Patient at high risk for Injury due to decreased ability to care for self;Injury due to balance deficits;Injury at home as patient has not returned to prior level of function;Falls -KB Injury due to balance deficits;Injury due to reduced functional status;Falls -KB -- Recommend Inpatient Rehab/Acute Rehab due to Ability to actively participate in intensive therapy 3hours/day, 5 days/week or 900 minutes per week;Highly motivated to participate in therapy;Not at baseline due to impaired ability to complete ADLs;Impaired ability to complete functional mobility;Requires greater than 25% physical assistance with most mobility tasks;Requires greater than 25% physical assistance with most ADL tasks;Requires multiple therapy disciplines to address functional deficits -KB Ability to actively participate in intensive therapy 3 hours/day, 5 days/week or 900 minutes per week;Highly motivated to participate in therapy;Not at baseline due to impaired ability to complete ADLs;Impaired ability to complete functional mobility;Requires greater than 25% physical assistance with most mobility tasks;Requires greater than 25% physical assistance with most ADL tasks;Requires multiple therapy disciplines to address functional deficits -KB -- OT Frequency during current admission 3-5x/wk -KB 3-5x/wk -KB -- Treatment/Interventions during current admission ADL/IADL retraining;Balance Training;Bed mobility;Endurance training;Functional activity;Functional mobility training;Functional transfer training -KBADL/IADL retraining;Balance Training;Bed mobility;Endurance training;Functional activity;Functionalmobility training;Functional transfer training -KB -- Progress during current admission Progressing toward goals -KB Progressing toward goals -KB -- OT Evaluation Complete -- Yes -KB -- User Jackson (r) = Recorded By, (t) = Taken By, (c) = Cosigned By Initials Name Effective Dates Saulo Suarez COTA 09/14/23 - Suzie Chavez, YVON 05/10/23 - OT Notes Notes from 10/21/23 through 10/23/23 No notes of this type exist for this encounter. , PT Eval and Treat Last 72 Hours PT Evaluation Row Name 10/21/23 0905 10/18/23 0844 Chart Reviewed Yes -CE -- Session Type Evaluation -CE -- Safe Environment Arm band checked;Patient found in supine;Gait belt utilized for all out of bed mobility -CE -- Subjective Agreeable to Therapy -CE -- Subjective Comment -- patient requiring multiple vasopressors: will re-attempt PT evaluation 2/29 -AM Additional Pertinent History 53 y/o M presents for surgical intervention on 10/14/23 from [facility]. Pt is s/p CABG x 3 (SVG-PDA, SVG-OM, BRICE-LAD) and mechanical AVR on 10/[address] Valero. Pt has history of ESRD on PD, CAD s/p PCI, SC, and DVT on chronic anticoagulation, Type 1 DM, HTN. -CE -- Family/Caregiver Present No -CE -- Physical Therapy-Patient Goal return to PLOF -CE -- Precautions Cardiac sternal;Fall risk;Drains -CE -- Precaution Comments reviewed sternal precautions -CE -- Type of Home House -CE -- Home Layout One level -CE -- Home Access Stairs to enter without rails -CE -- Entrance Stairs-Number of Steps 1 -CE -- Home Mobility Equipment-Available Wheeled walker;Single point cane -CE -- Home Mobility Equipment-Currently Using Single point cane -CE -- Additional Comments uses single point cane as needed due to bilateral chronic knee pain -CE -- Level of [place] Independent with ADLs;Independent functional transfers;Independent with ambulation -CE -- Lives With Son -CE -- Receives Help From Family -CE -- Vocational/Occupation Retired -CE -- 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 [employer] -CE -- Fall within the last 6 months No -CE -- Pain Assessment 0-10 -CE -- Pain Score 1 -CE -- Pain Location Sternum -CE -- Clinical Progression Not changed 08/30 -CE -- Orientation Oriented X4 (person, place, time, situation) -CE -- Numbness/Tingling Yes -CE -- Sensation Comments patient reports BLE numbness, is able to identify light touch but is diminished -CE -- Motor Planning Appears intact -CE -- Bed Mobility From 1 Supine -CE -- Bed Mobility Type 1 To -CE -- Bed Mobility to 1 Edge of bed -CE -- Level of Assistance 1 Moderate Assist -CE -- Bed Mobility Comments 1 cues for sternal precautions, log roll, increased time to complete -CE -- Transfer From 1 Sit -CE -- Transfer Type 1 To and from -CE -- Transfer to 1 Stand -CE -- Transfer Device 1 Wheeled walker -CE -- Transfer Level of Assistance 1 Moderate Assist -CE -- Trials/Comments 1 assist for force production, cues for anterior weight shift and sternal precautions -CE -- Distance (ft) 1 20' -CE -- Surface 1 Level tile -CE -- Device 1 Wheeled walker -CE -- Assistance 1 Minimum Assist -CE -- Ambulation Comments 1 patient ambulates with slow david, difficulty advancing BLE, reduced knee flexion in swing phase of gait bilaterally, reduced step length and foot clearance bilaterally, cues for posture, pacing, pursed lip breathing, SpO2 90% on room air -CE -- PT Treatment/Exercise Comments pre activity: HR 59, SpO2 90%, BP 124/59, post activity: HR 83, [id number]% on room air, BP 130/53 -CE -- Safe Environment End of Therapy Session Patient left in recliner;RN notified;Call light within reach;Overbed table within reach -CE -- Prognosis Good -CE -- Problem List Gait deviations;Decreased strength;Decreased endurance;Decreased range of motion;Impaired balance;Decreased mobility -CE -- Barriers to Discharge Current Mobility Status -CE -- Plan Plan of care initiated;If this is the last note, consider this the discharge summary -CE -- PT Recommendation/Plan Inpatient Rehab Facility -CE -- Recommend Inpatient Rehab/Acute Rehab due to Ability to actively participate in intensive therapy 3hours/day, 5 days/week or 900 minutes per week;Highly motivated to participate in therapy;Impaired ability to complete functional mobility;Likely to return to the community at discharge with support system in place;Requires greater than 25% physical assistance with most mobility tasks;Requires multiple therapy disciplines to address functional deficits -CE -- PT Frequency during current admission 3-5x/wk -CE -- Treatment/Interventions during current admission Balance Training;Bed mobility;Endurance training;Equipment eval/education;Functional activity;Functional transfer training;Gait training;Neuromuscularre- education;Range of motion;Stair training;Therapeutic activity;Therapeutic exercise;Transfer training -CE -- PT Evaluation Complete Yes -CE -- User Jackson (r) = Recorded By, (t) = Taken By, (c) = Cosigned By Initials Name Effective Dates CE Gina Mason, CHINO 05/26/20 - AM Aleah Win DPT 05/13/19 - PT TREATMENT (last 168 hours) PT Treatment Row Name 10/23/23 1042 10/23/23 0810 10/19/23 1425 PT Last Visit Session Type Treatment -NW Treatment - Other (comment) - Safe Environment Arm band checked;Patient found in supine;Gait belt utilized for all out of bed mobility -NW -- -- Subjective Agreeable to Therapy -NW -- Other - Subjective Comment Patient found laying supine in bed at the start of treatment. Patient fatigued from OT session and dialysis earlier in the morning but is agreeable to some therapy -NW -- Per RN,Pt. is too fatigued to participate in therapy, will attempt evaluation 10/19. - PT Missed Visit Reason -- Procedure/testing/appointment Pt is currently on PD - nursing will notifywhen pt is finished. - MD/RN Hold;Asleep - Additional Pertinent History 53 y/o M presents for surgical intervention on 10/14/23 from [facility]. Pt is s/p CABG x 3 (SVG-PDA, SVG-OM, BRICE-LAD) and mechanical AVR on 10/[address] Valero. Pt has history of ESRD on PD, CAD s/p PCI, SC, and DVT on chronic anticoagulation, Type 1 DM, HTN. -NW -- -- Family/Caregiver Present No -NW -- -- Precautions Precautions Cardiac sternal;Bed/Chair Alarm;Fall risk -NW -- -- Precaution Handout Issued Yes -NW -- -- Precaution Comments Reviewed all sternal precautions with patient. Patient with poor recall and poor adherance to precautions even with verbal reminders during task -NW -- -- Activity Tolerance Endurance Tolerates 10 - 20 min activity with multiple rests -NW -- -- Activity Tolerance Comments Frequent rest breaks needed due to fatigue. BP 142/67, 72 BPM, 98% SpO2on RA. -NW -- -- Pain Assessment Pain Assessment 0-10 -NW -- -- Pain Score 4 -NW -- -- Patient's Stated Pain Goal No pain -NW -- -- Pain Type Surgical pain -NW -- -- Chronic Pain Precipitating Factors At Rest -NW -- -- Chronic Pain Alleviating Factors Medication;Relaxation -NW -- -- Pain Location Sternum -NW -- -- Pain Orientation Generalized -NW -- -- Pain Descriptors Aching -NW -- -- Pain Frequency With movement/cough -NW -- -- Pain Onset Ongoing -NW -- -- Clinical Progression Not changed -NW -- -- Pain Interventions Medication (See MAR);Repositioned;RN Notified -NW -- -- Response to Interventions No relief -NW -- -- Cognition Overall Cognitive Status WFL -NW -- -- Arousal/Alertness Alert;Lethargic;Appropriate responses to stimuli -NW -- -- Attention Span Appears intact -NW -- -- Memory Appears intact -NW -- -- Current communication Appears Intact -NW -- -- Orientation Oriented X4 (person, place, time, situation) -NW -- -- Following Commands Follows one step commands with repetition -NW -- -- Safety Judgment Decreased awareness of need for safety -NW -- -- Awareness of Errors Assistance required to identify errors made;Assistance required to correct errors made;Decreased awareness of errors -NW -- -- Insight Decreased awareness of deficits -NW -- -- Problem Solving Assistance required to identify errors made;Assistance required to generate solutions;Assistance required to implement solutions -NW -- -- Compliance/Behavior Easy to engage -NW -- -- Balance Balance Yes -NW -- -- Static Sitting Balance Static Sitting-Balance Support Right upper extremity supported;Feet supported - NW -- -- Static Sitting-Sitting Surface Bed -NW -- -- Static Sitting-Level of Assistance Minimum assistance -NW -- -- Static Sitting-Comment/# of Minutes Due to trunk sway. -NW -- -- Static Standing Balance Static Standing-Balance Support Bilateral upper extremity supported -NW -- -- Static Standing-Standing Surface Floor -NW -- -- Static Standing-Level of Assistance Minimum assistance -NW -- -- Static Standing-Comment/# of Minutes To decrease weight in bilateral UE. -NW -- -- Exercises Balance Training EO/EC balance training at edge of bed with FWW and alternating UE assist -NW -- -- Other Activities Other Activities Other (Comment) -NW -- -- Other Activities Comments Copious education provided on maintaining sternal precautions during treatment session, patient not compliant, requires extensive education. -NW -- -- Bed Mobility Bed Mobility Yes -NW -- -- Bed Mobility 1 Bed Mobility From 1 Supine -NW -- -- Bed Mobility Type 1 To and from -NW -- -- Bed Mobility to 1 Edge of bed -NW -- -- Level of Assistance 1 Moderate Assist -NW -- -- Bed Mobility Comments 1 HOB elevated, ModA for LE navigation in and out of bed and trunk stabilization. Requires cues to not break sternal precautions. -NW -- -- Transfers Transfer Yes -NW -- -- Transfer 1 Transfer From 1 Sit -NW -- -- Transfer Type 1 To and from -NW -- -- Transfer to 1 Stand -NW -- -- Technique 1 Stand to sit;Sit to stand -NW -- -- Transfer Device 1 Wheeled walker -NW -- -- Transfer Level of Assistance 1 Minimum Assist -NW -- -- Trials/Comments 1 Cues to not break sternal precautions this date, patient not always compliant even with cues -NW -- -- Ambulation Ambulation Yes -NW -- -- Ambulation 1 Distance (ft) 1 15 -NW -- -- Surface 1 Level tile -NW -- -- Device 1 Wheeled walker -NW -- -- Assistance 1 Minimum Assist -NW -- -- Gait: Requires assist with 1 Maintaining balance -NW -- -- Gait: Requires verbal cues to 1 Use assistive device safely;Increase step length;Pace activity -NW -- -- Gait Deviations 1 Antalgic;Base of support - increased;Shuffling;Stance time - decreased;Step length - decreased -NW -- -- Ambulation Comments 1 Step-to gait pattern. Patient requires cues to not push too hard through FWW,breaks due to fatigue often utilized. -NW -- -- Stairs Stairs No -NW -- -- Stair Comments deferred -NW -- -- Other Comments Other PT Comments Patient continues to require extensive cues to maintain sternal preacution with task as well as demonstrates decreased strength, endurance, balance and functional mobility that would prove home discharge impossible at this time. -NW -- -- RUE Assessment RUE Assessment X -NW -- -- RUE Comments Funtionally weak -NW -- -- LUE Assessment LUE Assessment X -NW -- -- LUE Comments Functionally weak -NW -- -- RLE Assessment RLE Assessment X -NW -- -- RLE Comments Functionally weak -NW -- -- LLE Assessment LLE Assessment X -NW -- -- LLE Comments Functionally weak -NW -- -- Safe Environment End of Therapy Session Safe Environment End of Therapy Session Patient left in recliner;Chair alarm in place and activated;RN notified;Sequential compressive devices on legs and activated;Call light within reach;Overbed table within reach -NW -- -- Assessment Prognosis Good -NW -- -- Problem List Gait deviations;Decreased strength;Decreased range of motion;Decreased endurance;Impaired balance;Decreased mobility;Orthopedic restrictions;Pain;Decreased coordination;Decreased cognition -NW -- -- Barriers to Discharge Current Mobility Status;Decreased caregiver support;Home environment challenged;Inaccessible home environment;Noncompliance -NW -- -- Plan Plan Continue with current plan;If this is the last note, consider this the discharge summary -NW -- -- Recommendation/Plan PT Recommendation/Plan Inpatient Rehab Facility -NW -- -- Patient at high risk for Falls;Readmission;Injury due to decreased ability to care for self;Injury due to reduced functional status;Injury due to balance deficits;Injury at home as patient has not returned to prior level of function;Difficulty maintaining orthopedic restrictions;Improper use of DME-NW -- -- Recommend Inpatient Rehab/Acute Rehab due to Ability to actively participate in intensive therapy 3hours/day, 5 days/week or 900 minutes per week;Highly motivated to participate in therapy;Not at baseline due to impaired ability to complete ADLs;Likely to return to the community at discharge with support system in place;Requires greater than 25% physical assistance with most mobility tasks;Requires greater than 25% physical assistance with most ADL tasks;Requires skilled therapy interventions to address neurological deficits;Patient and caregiver require specialized skilled training due to new level of function/diagnosis;Requires multiple therapy disciplines to address functional deficits;Impaired ability to complete functional mobility -NW -- -- PT Frequency during current admission 3-5x/wk -NW -- -- Treatment/Interventions during current admission Bed mobility;Balance Training;Endurance training;Gait training;Neuromuscular re-education;Stair training;Strengthening;Therapeutic activity;Therapeutic exercise;Transfer training -NW -- -- PT Equipment Recommended Wheeled walker -NW -- -- Progress during current admission Progressing toward goals -NW -- -- PT - OK to Discharge No -NW -- -- User Jackson (r) = Recorded By, (t) = Taken By, (c) = Cosigned By Initials Name Effective Dates SS Nida Starr, FREIGHT AND PASSENGER AGENT 06/30/22 - Eliana Joiner, PT 12/05/22 - NW Gustavo Swan, PT 04/10/23 - PT Notes 10/21/2023 10:25 AM Progress Notes signed by Gina Mason DPT 10/23/2023 11:53 AM Progress Notes signed by Gustavo Swan, PT , GUIDANCE SECRETARY Eval and Treat Last 72 Hours GUIDANCE SECRETARY Evaluation No documentation. GUIDANCE SECRETARY Treatment No documentation. Clinical Swallow Study No documentation. GUIDANCE SECRETARY Notes Notes from 10/21/23 through 10/23/23 No notes of this type exist for this encounter. DING ADMIN * Consults, Subsequent - Augustin Bethea MD - 10/23/2023 10:48 AM BUILDING ADMIN Endocrine Note Reason for Consult: type 1 DM post op, insulin pump at home. uncontrolled, ESRD on PD Subjective Better.wants pump. Past Medical History: Diagnosis Date CAD (coronary artery disease) Chest pain Diabetes mellitus (HCC) Diabetes mellitus type I (HCC) Dialysis patient (HCC) ESRD on dialysis (HCC) GERD (gastroesophageal reflux disease) Hyperlipidemia Hypertension Sleep apnea SOB (shortness of breath) Past Surgical History: Procedure Laterality Date APPENDECTOMY Appendectomy APPENDECTOMY CENTRAL LINE PLACEMENT > 5 YEARS N/A 06/18/2022 CORONARY ANGIOPLASTY WITH STENT PLACEMENT FEMUR SURGERY KNEE SURGERY knee surgery OPEN REDUCTION INTERNAL FIXATION ORIF OTHER SURGICAL HISTORY eye surg-vitrectomy Medications Prior to Admission Medication Sig Dispense Refill Last Dose acetaminophen 500 mg capsule Take 2 capsules (1,000 mg total) by mouth every 6 (six) hours as needed for pain 30 tablet 1 Past Week aspirin 81 mg enteric coated tablet Take 1 tablet (81 mg total) by mouth daily Past Week atorvastatin (LIPITOR) 80 mg tablet Take 1 tablet (80 mg total) by mouth daily 10/12/2023 calcitRIOL (ROCALTROL) 0.25 mcg capsule Take 1 capsule (0.25 mcg total) by mouth daily 10/12/2023 calcium acetate,phosphat bind, (PHOSLO) 667 mg capsule Take 1 capsule (667 mg total) by mouth 4 (four) times a day (with meals and nightly) With meals and snack 10/12/2023 cetirizine (ZyrTEC) 10 mg tablet Take 1 tablet (10 mg total) by mouth daily as needed for allergies10/12/2023 cholecalciferol (VITAMIN D-3) 2000 unit tablet Take 25 tablets (50,000 Units total) by mouth once aweek Past Week clopidogrel (PLAVIX) 75 mg tablet TAKE 1 TABLET BY MOUTH DAILY 90 tablet 0 10/12/2023 colchicine (COLCRYS) 0.6 mg tablet Take 1 tablet (0.6 mg total) by mouth 3 (three) times a week Monday, Monday, Monday10/12/2023 EZETIMIBE ORAL Take 10 mg by mouth daily 10/12/2023 famotidine (PEPCID) 40 mg tablet Take 0.5 tablets (20 mg total) by mouth nightly 10/12/2023 gemfibroziL (LOPID) 600 mg tablet Take 1 tablet (600 mg total) by mouth 2 (two) times a day before breakfast and lunch 10/12/2023 icosapent ethyL (VASCEPA) 1 gram capsule Take 2 capsules (2 g total) by mouth 2 (two) times a day 10/12/2023 insulin lispro (HumaLOG, ADMELOG) 100 unit/mL vial for injection THIS IS FOR THE INSULIN PUMP: Continue Omnipod 5 insulin pump with Mpayy G6 CGM at home settings: TIME BASAL RATE TOTAL BASAL DAILY DOSE: 65.85 0330 1.7 units/hour 0800 0.8 units/hour 2000 5.8 units/hour 10/12/2023 isosorbide mononitrate ER (IMDUR) 30 mg 24 hr tablet TAKE 1 TABLET BY MOUTH EVERY DAY 90 tablet 0 10/12/2023 metoprolol (LOPRESSOR) 100 mg tablet Take 1 tablet (100 mg total) by mouth every 12 (twelve) hours 10/12/2023 NIFEdipine (NIFEdipine XL) 90 mg 24 hr tablet Take 1 tablet (90 mg total) by mouth daily 10/12/2023 omeprazole (PriLOSEC) 20 mg capsule Take 1 capsule (20 mg total) by mouth daily 10/12/2023 potassium chloride ER 10 mEq CR tablet Take 2 tablet/capsule (20 mEq total) by mouth nightly 10/12/2023 ranolazine ER (RANEXA) 500 mg 12 hr tablet Take 1 tablet (500 mg total) by mouth 2 (two) times a day 10/12/2023 losartan (COZAAR) 25 mg tablet Take 0.5 tablets (12.5 mg total) by mouth daily 15 tablet 11 pen needle, diabetic (BD Ultra-Fine Short Pen Needle) 31 gauge x 5/16 needle U ONE PEN NEEDLE TO INJ INSULIN SC QID (Patient not taking: Reported on 10/14/2023) Not Taking Allergies Allergen Reactions Allopurinol Other (See comments) [...] Rash Iodinated Diagnostic Agents Ticagrelor Rash Rash Social History Tobacco Use Smoking status: Never Smokeless tobacco: Former Substance and Sexual Activity Drug use: No Sexual activity: Defer Alcohol Use: Not At Risk (06/07/2022) AUDIT-C Frequency of Alcohol Consumption: Monthly or less Average Number of Drinks: 3 or 4 Frequency of Binge Drinking: Never Family History Problem Relation Age of Onset Heart attack Father Review of Systems: Review of systems per HPI and otherwise all other systems are negative Objective Vitals: 24hr Min/Max: Temp Min: 36.3 ??C (97.4 ??F) Max: 37.3 ??C (99.1 ??F) Pulse Min: 70 Max: 93 BP Min: 118/87 Max: 157/95 Resp Min: 18 Max: 18 SpO2 Min: 93 % Max: 97 % Most Recent : Vitals: 10/23/23 1000 BP: Pulse: 70 Resp: Temp: SpO2: I/O last 2 completed shifts: In: 3710 [P.O.:200; I.V.:10; Other:3500] Out: 3590 [Urine:200; Other:3390] I/O this shift: In: 1222 [P.O.:222; Other:1000] Out: 3560 [Urine:100; Other:3460] Physical Exam: General appearance: appears stated age and cooperative Lungs: clear to auscultation bilaterally Heart: regular rate and rhythm, S1, S2 normal, no murmur, click, rub or gallop Abdomen: soft, non-tender; bowel sounds normal; no masses, no organomegaly Lab/Radiology/Diagnostic Review: Laboratory review: POC Glucose: Lab Results Component Value Date GLUCOSE 205 (H) 10/23/2023 GLUCOSE 176 10/23/2023 Latest Reference Range & Units Most Recent Hgb A1C 4.0 - 5.6 % 8.1 (H) 10/16/23 15:27 (H): Data is abnormally high Assessment /Plan Principal Problem: CAD in [place] artery 1. Uncontrolled type 1 diabetes, A1c noted to be 8.1% 10/14, BG 200's Patient wanted to be back on his Omnipod pump, already has Dexcom G6 Pump setting, Basal setting lowered: 3>>>6.5 units an hour 10:00 p.m. to 8:00 a.m., 1.5 >>>1.8 units 8:00 a.m. to 10:00 p.m. Bolus setting carb ratio 9, correction factor 25 Discussed with pt. This note was transcribed using Speech Recognition software. May contain unintended grammar and spelling errors. If there are any questions or major errors, please contact me. Thank you for allowing us to participate in the care of this patient. We will continue to follow. If you have any questions, please don't hesitate to call. Augustin Bethea MD [facility] [email or web address] Office phone: [phone] Office fax: [phone] DING ADMIN * Post-Procedure Note - Radha Mercado, LUAN - 10/23/2023 10:39 AM CST Peritoneal Dialysis Treatment Summary: Juvenal Garvin Jr. received peritoneal dialysis on 10/22/2023 PD catheter exit site: PD catheter dressing change completed and topical antibiotic applied per orders CCPD Duration: 8.5 hours Fill volumes: 2500 Dianeal solution: 2.5 % 6000 with 3000 units Heparin bag # 1 & 2. Extraneal 7.5 Ambu flex 2500 mls 1250 Units Heparin bag # 3. Additives: Heparin all 3 bags. See above for dosing. Number of cycles: 4 Last fill volume: 1000 Total UF volume: 1662 Initial drain volume: 1798 CAPD In Out In Out In Out In Out In Out In Out Volume in/out: Dwell time: Number of exchanges per day: Dianeal Solution: Additives: Comments: Tolerated tx without issues. Effluent clear, yellow. DING ADMIN * Plan of Care - Jessica Rodriguez RN - 10/22/2023 4:07 PM CST Goals: Clinical Goals for the Shift: VSS, monitor labs and tele, ambulation, pain control, wean O2, I/O, safety Summary: Pt VSS throughout shift, afib rate controlled per tele. No pain or nausea worth treating. Up x1 w/WW, gait slow. Bed/chair alarm in place for fall prevention. Pacer wires and wound vac in place. Fitted for LifeVest for discharge. Call light within reach, cooperative with use. Continue withplan of care. Problem: Lack of Knowledge Goal: Ability to develop a pain control plan will improve Outcome: Progressing Problem: Medication Goal: Satisfaction with pain management medication regimen will improve Outcome: Progressing Problem: Sensory Goal: Ability to identify factors that increase pain levels will improve while working to decrease the patient's pain levels Outcome: Progressing Problem: Coping Goal: Ability to cope will improve Outcome: Progressing Problem: Health Behavior Goal: Identification of resources available to assist in meeting health care needs will improve Outcome: Progressing Problem: Discharge Planning Goal: Understanding discharge needs will improve Outcome: Progressing Problem: Obstructive Sleep Apnea (BEN) Goal: Patients ability to maintain adequate ventilation during sleep periods will improve Outcome: Progressing Problem: Health Nutrition Goal: Nutritional intake and knowledge related to Diabetes will improve Outcome: Progressing Problem: Fall Risk Goal: Ability to state ways to decrease the risk of falls will improve Outcome: Progressing Goal: Will remain free from falls Outcome: Progressing Goal: Will remain free from injury from falls Outcome: Progressing Problem: Respiratory Goal: Achieves optimal ventilation and oxygenation Outcome: Progressing Goal: Ability to maintain a clear airway will improve Outcome: Progressing Problem: Skin Integrity Impairment Risk Goal: Mobility will improve Outcome: Progressing Goal: Understanding of ways to prevent future skin breakdown will improve Outcome: Progressing Goal: Nutritional status will improve Outcome: Progressing Goal: Risk for impaired skin integrity will decrease Outcome: Progressing DING ADMIN * Post-Procedure Note - Rayna Be RN - 10/22/2023 12:03 PM BUILDING ADMIN Peritoneal Dialysis Treatment Summary: Juvenal Garvin Jr. received peritoneal dialysis on 10/22/2023 PD catheter exit site: PD catheter dressing change completed and topical antibiotic applied per orders CCPD Duration: Fill volumes: Dianeal solution: 2-6000 ml bags of 2.5% 1-2500 ml bag of 7.5% Additives: Number of cycles: 4 Last fill volume: Total UF volume: 1805 Initial drain volume: 1585 CAPD In Out In Out In Out In Out In Out In Out Volume in/out: Dwell time: Number of exchanges per day: Dianeal Solution: Additives: Comments: No pain reported by patient. Fluid yellow, no sediment. 95 minutes for dwell time. Added dwell time 7 minutes. DING ADMIN * Plan of Care - Hermes Savage, IT INTEGRATION ARCHITECT - 10/22/2023 7:30 AM CST Problem: Obstructive Sleep Apnea (BEN) Goal: Patients ability to maintain adequate ventilation during sleep periods will improve Outcome: Progressing Positive Expiratory Pressure Therapy Patient educated on goals of vibratory PEP therapy. Will continue to monitor patient technique and encourage use of Vibratory PEP device. Patient educated on effective cough and deep breathing at this time. DING ADMIN * Plan of Care - Jessica Rodriguez RN - 10/21/2023 4:44 PM CST Goals: Clinical Goals for the Shift: VSS, monitor labs and tele, ambulation, pain control, wean O2, I/O, safety Summary: Pt VSS throughout shift, in and out of Afib per tele, rate controlled and asymptomatic. Denied pain or nausea worth treating. CT removed by PA, tolerated well. Up SBA w/WW, gait slow but steady. Bed/chair alarm in place for fall prevention. Call light within reach, cooperative with use. Continue with plan of care. Problem: Lack of Knowledge Goal: Ability to develop a pain control plan will improve Outcome: Progressing Problem: Medication Goal: Satisfaction with pain management medication regimen will improve Outcome: Progressing Problem: Sensory Goal: Ability to identify factors that increase pain levels will improve while working to decrease the patient's pain levels Outcome: Progressing Problem: Coping Goal: Ability to cope will improve Outcome: Progressing Problem: Health Behavior Goal: Identification of resources available to assist in meeting health care needs will improve Outcome: Progressing Problem: Discharge Planning Goal: Understanding discharge needs will improve Outcome: Progressing Problem: Obstructive Sleep Apnea (BEN) Goal: Patients ability to maintain adequate ventilation during sleep periods will improve Outcome: Progressing Problem: Health Nutrition Goal: Nutritional intake and knowledge related to Diabetes will improve Outcome: Progressing Problem: Fall Risk Goal: Ability to state ways to decrease the risk of falls will improve Outcome: Progressing Goal: Will remain free from falls Outcome: Progressing Goal: Will remain free from injury from falls Outcome: Progressing Problem: Respiratory Goal: Achieves optimal ventilation and oxygenation Outcome: Progressing Goal: Ability to maintain a clear airway will improve Outcome: Progressing Problem: Skin Integrity Impairment Risk Goal: Mobility will improve Outcome: Progressing Goal: Understanding of ways to prevent future skin breakdown will improve Outcome: Progressing Goal: Nutritional status will improve Outcome: Progressing Goal: Risk for impaired skin integrity will decrease Outcome: Progressing DING ADMIN * Consults, Subsequent - Augustin Bethea MD - 10/21/2023 4:43 PM BUILDING ADMIN Endocrine Note Reason for Consult: type 1 DM post op, insulin pump at home. uncontrolled, ESRD on PD Subjective Better. Past Medical History: Diagnosis Date CAD (coronary artery disease) Chest pain Diabetes mellitus (HCC) Diabetes mellitus type I (HCC) Dialysis patient (HCC) ESRD on dialysis (HCC) GERD (gastroesophageal reflux disease) Hyperlipidemia Hypertension Sleep apnea SOB (shortness of breath) Past Surgical History: Procedure Laterality Date APPENDECTOMY Appendectomy APPENDECTOMY CENTRAL LINE PLACEMENT > 5 YEARS N/A 06/18/2022 CORONARY ANGIOPLASTY WITH STENT PLACEMENT FEMUR SURGERY KNEE SURGERY knee surgery OPEN REDUCTION INTERNAL FIXATION ORIF OTHER SURGICAL HISTORY eye surg-vitrectomy Medications Prior to Admission Medication Sig Dispense Refill Last Dose acetaminophen 500 mg capsule Take 2 capsules (1,000 mg total) by mouth every 6 (six) hours as needed for pain 30 tablet 1 Past Week aspirin 81 mg enteric coated tablet Take 1 tablet (81 mg total) by mouth daily Past Week atorvastatin (LIPITOR) 80 mg tablet Take 1 tablet (80 mg total) by mouth daily 10/12/2023 calcitRIOL (ROCALTROL) 0.25 mcg capsule Take 1 capsule (0.25 mcg total) by mouth daily 10/12/2023 calcium acetate,phosphat bind, (PHOSLO) 667 mg capsule Take 1 capsule (667 mg total) by mouth 4 (four) times a day (with meals and nightly) With meals and snack 10/12/2023 cetirizine (ZyrTEC) 10 mg tablet Take 1 tablet (10 mg total) by mouth daily as needed for allergies10/12/2023 cholecalciferol (VITAMIN D-3) 2000 unit tablet Take 25 tablets (50,000 Units total) by mouth once aweek Past Week clopidogrel (PLAVIX) 75 mg tablet TAKE 1 TABLET BY MOUTH DAILY 90 tablet 0 10/12/2023 colchicine (COLCRYS) 0.6 mg tablet Take 1 tablet (0.6 mg total) by mouth 3 (three) times a week Monday, Monday, Monday10/12/2023 EZETIMIBE ORAL Take 10 mg by mouth daily 10/12/2023 famotidine (PEPCID) 40 mg tablet Take 0.5 tablets (20 mg total) by mouth nightly 10/12/2023 gemfibroziL (LOPID) 600 mg tablet Take 1 tablet (600 mg total) by mouth 2 (two) times a day before breakfast and lunch 10/12/2023 icosapent ethyL (VASCEPA) 1 gram capsule Take 2 capsules (2 g total) by mouth 2 (two) times a day 10/12/2023 insulin lispro (HumaLOG, ADMELOG) 100 unit/mL vial for injection THIS IS FOR THE INSULIN PUMP: Continue Omnipod 5 insulin pump with [employer] G6 CGM at home settings: TIME BASAL RATE TOTAL BASAL DAILY DOSE: 65.85 0330 1.7 units/hour 0800 0.8 units/hour 2000 5.8 units/hour 10/12/2023 isosorbide mononitrate ER (IMDUR) 30 mg 24 hr tablet TAKE 1 TABLET BY MOUTH EVERY DAY 90 tablet 0 10/12/2023 metoprolol (LOPRESSOR) 100 mg tablet Take 1 tablet (100 mg total) by mouth every 12 (twelve) hours 10/12/2023 NIFEdipine (NIFEdipine XL) 90 mg 24 hr tablet Take 1 tablet (90 mg total) by mouth daily 10/12/2023 omeprazole (PriLOSEC) 20 mg capsule Take 1 capsule (20 mg total) by mouth daily 10/12/2023 potassium chloride ER 10 mEq CR tablet Take 2 tablet/capsule (20 mEq total) by mouth nightly 10/12/2023 ranolazine ER (RANEXA) 500 mg 12 hr tablet Take 1 tablet (500 mg total) by mouth 2 (two) times a day 10/12/2023 losartan (COZAAR) 25 mg tablet Take 0.5 tablets (12.5 mg total) by mouth daily 15 tablet 11 pen needle, diabetic (BD Ultra-Fine Short Pen Needle) 31 gauge x 5/16 needle U ONE PEN NEEDLE TO INJ INSULIN SC QID (Patient not taking: Reported on 10/14/2023) Not Taking Allergies Allergen Reactions Allopurinol Other (See comments) [...] Rash Iodinated Diagnostic Agents Ticagrelor Rash Rash Social History Tobacco Use Smoking status: Never Smokeless tobacco: Former Substance and Sexual Activity Drug use: No Sexual activity: Defer Alcohol Use: Not At Risk (06/07/2022) AUDIT-C Frequency of Alcohol Consumption: Monthly or less Average Number of Drinks: 3 or 4 Frequency of Binge Drinking: Never Family History Problem Relation Age of Onset Heart attack Father Review of Systems: Review of systems per HPI and otherwise all other systems are negative Objective Vitals: 24hr Min/Max: Temp Min: 36.5 ??C (97.7 ??F) Max: 36.8 ??C (98.2 ??F) Pulse Min: 59 Max: 71 BP Min: 123/58 Max: 129/57 Resp Min: 16 Max: 18 SpO2 Min: 89 % Max: 99 % Most Recent : Vitals: 10/21/23 1500 BP: Pulse: Resp: Temp: SpO2: 90% I/O last 2 completed shifts: In: 680 [P.O.:680] Out: 1632 [Urine:100; Other:1482; Chest Tube:50] I/O this shift: In: 40 [I.V.:40] Out: 915 [Urine:200; Other:715] Physical Exam: General appearance: appears stated age and cooperative Lungs: clear to auscultation bilaterally Heart: regular rate and rhythm, S1, S2 normal, no murmur, click, rub or gallop Abdomen: soft, non-tender; bowel sounds normal; no masses, no organomegaly Lab/Radiology/Diagnostic Review: Laboratory review: POC Glucose: Lab Results Component Value Date GLUCOSE 266 (H) 10/21/2023 GLUCOSE 289 (H) 10/21/2023 Latest Reference Range & Units Most Recent Hgb A1C 4.0 - 5.6 % 8.1 (H) 10/16/23 15:27 (H): Data is abnormally high Assessment /Plan Principal Problem: CAD in [place] artery 1. Uncontrolled type 1 diabetes, A1c noted to be 8.1% 10/14, BG 200's Off IV insulin. Offered to resume pump. Pt not wanting to do insulin pump yet. BASAL BOLUS: NPH 40 units, 10 PM. PD starting at [place] NPH 20 units QAM, Humalog 6 units QAC, TID. SSI in daytime. Discussed with pt. This note was transcribed using Speech Recognition software. May contain unintended grammar and spelling errors. If there are any questions or major errors, please contact me. Thank you for allowing us to participate in the care of this patient. We will continue to follow. If you have any questions, please don't hesitate to call. Augustin Bethea MD [facility] [email or web address] Office phone: [phone] Office fax: [phone] DING ADMIN * Plan of Care - Hermes Savage RRT - 10/21/2023 7:43 AM CST Problem: Obstructive Sleep Apnea (BEN) Goal: Patients ability to maintain adequate ventilation during sleep periods will improve Outcome: Progressing Positive Expiratory Pressure Therapy Patient educated on goals of vibratory PEP therapy. Will continue to monitor patient technique and encourage use of Vibratory PEP device. Patient educated on effective cough and deep breathing at this time. DING ADMIN * Post-Procedure Note - Sugar Swanson RN - 10/21/2023 7:05 AM CST Peritoneal Dialysis Treatment Summary: Juvenal Garvin Jr. received peritoneal dialysis on 10/20/2023 PD catheter exit site: PD catheter dressing change completed and topical antibiotic applied per orders CCPD Duration: 8.5 hours Fill volumes: 2500 ml Dianeal solution: 2 - 6000 ml bags of 2.5% 1 - 2500 ml bag of 7.5% Additives: none Number of cycles: 4 Last fill volume: 1000 ml Total UF volume: 477 Initial drain volume: 120 Manual drain on machine of 118 ml. CAPD In Out In Out In Out In Out In Out In Out Volume in/out: Dwell time: Number of exchanges per day: Dianeal Solution: Additives: Comments: Patient stated he had multiple alarms throughout the night. UF volume was low and extended lost dwell time. Tried manual drain to make sure no problem. 118 ml output. Also checked programming to make sure no problems. Slightly cloudy yellow effluent with fibrin. Dr. Martinez notified of all findings. DING ADMIN * Plan of Care - Dominique Fuentes RRT - 10/20/2023 8:19 PM CST Problem: Respiratory Goal: Achieves optimal ventilation and oxygenation Outcome: Progressing Positive Expiratory Pressure Therapy Patient educated on goals of PEP therapy. Will continue to monitor patient technique and encourage use of PEP device. Patient educated on effective cough and deep breathing at this time. DING ADMIN * Plan of Care - Summer Pradhan RN - 10/20/2023 6:24 PM CST Goals: Clinical Goals for the Shift: orient to unit, vss, monitor tele, monitor for pain, chest tube, wound vac, meds, blood sugar, comfort/safety Summary: Patient transferred to PCU around 1045. NSR on telemetry. Connected to backup pacer with no pacing noted. 2L oxygen via nasal cannula. Wound vac clean/dry/intact. Chest tube output charted. Nguyen removed upon transfer and still waiting on void. Patient denies pain except when coughing. Tylenol given. Comfort/safety ensured. DING ADMIN * Consults, Subsequent - Augustin Bethea MD - 10/20/2023 3:50 PM BUILDING ADMIN Endocrine Note Reason for Consult: type 1 DM post op, insulin pump at home. uncontrolled, ESRD on PD Subjective Better in PCU. Past Medical History: Diagnosis Date CAD (coronary artery disease) Chest pain Diabetes mellitus (HCC) Diabetes mellitus type I (HCC) Dialysis patient (HCC) ESRD on dialysis (HCC) GERD (gastroesophageal reflux disease) Hyperlipidemia Hypertension Sleep apnea SOB (shortness of breath) Past Surgical History: Procedure Laterality Date APPENDECTOMY Appendectomy APPENDECTOMY CENTRAL LINE PLACEMENT > 5 YEARS N/A 06/18/2022 CORONARY ANGIOPLASTY WITH STENT PLACEMENT FEMUR SURGERY KNEE SURGERY knee surgery OPEN REDUCTION INTERNAL FIXATION ORIF OTHER SURGICAL HISTORY eye surg-vitrectomy Medications Prior to Admission Medication Sig Dispense Refill Last Dose acetaminophen 500 mg capsule Take 2 capsules (1,000 mg total) by mouth every 6 (six) hours as needed for pain 30 tablet 1 Past Week aspirin 81 mg enteric coated tablet Take 1 tablet (81 mg total) by mouth daily Past Week atorvastatin (LIPITOR) 80 mg tablet Take 1 tablet (80 mg total) by mouth daily 10/12/2023 calcitRIOL (ROCALTROL) 0.25 mcg capsule Take 1 capsule (0.25 mcg total) by mouth daily 10/12/2023 calcium acetate,phosphat bind, (PHOSLO) 667 mg capsule Take 1 capsule (667 mg total) by mouth 4 (four) times a day (with meals and nightly) With meals and snack 10/12/2023 cetirizine (ZyrTEC) 10 mg tablet Take 1 tablet (10 mg total) by mouth daily as needed for allergies10/12/2023 cholecalciferol (VITAMIN D-3) 2000 unit tablet Take 25 tablets (50,000 Units total) by mouth once aweek Past Week clopidogrel (PLAVIX) 75 mg tablet TAKE 1 TABLET BY MOUTH DAILY 90 tablet 0 10/12/2023 colchicine (COLCRYS) 0.6 mg tablet Take 1 tablet (0.6 mg total) by mouth 3 (three) times a week Monday, Monday, Monday10/12/2023 EZETIMIBE ORAL Take 10 mg by mouth daily 10/12/2023 famotidine (PEPCID) 40 mg tablet Take 0.5 tablets (20 mg total) by mouth nightly 10/12/2023 gemfibroziL (LOPID) 600 mg tablet Take 1 tablet (600 mg total) by mouth 2 (two) times a day before breakfast and lunch 10/12/2023 icosapent ethyL (VASCEPA) 1 gram capsule Take 2 capsules (2 g total) by mouth 2 (two) times a day 10/12/2023 insulin lispro (HumaLOG, ADMELOG) 100 unit/mL vial for injection THIS IS FOR THE INSULIN PUMP: Continue Omnipod 5 insulin pump with [employer] G6 CGM at home settings: TIME BASAL RATE TOTAL BASAL DAILY DOSE: 65.85 0330 1.7 units/hour 0800 0.8 units/hour 1999 5.8 units/hour 10/12/2023 isosorbide mononitrate ER (IMDUR) 30 mg 24 hr tablet TAKE 1 TABLET BY MOUTH EVERY DAY 90 tablet 0 10/12/2023 metoprolol (LOPRESSOR) 100 mg tablet Take 1 tablet (100 mg total) by mouth every 12 (twelve) hours 10/12/2023 NIFEdipine (NIFEdipine XL) 90 mg 24 hr tablet Take 1 tablet (90 mg total) by mouth daily 10/12/2023 omeprazole (PriLOSEC) 20 mg capsule Take 1 capsule (20 mg total) by mouth daily 10/12/2023 potassium chloride ER 10 mEq CR tablet Take 2 tablet/capsule (20 mEq total) by mouth nightly 10/12/2023 ranolazine ER (RANEXA) 500 mg 12 hr tablet Take 1 tablet (500 mg total) by mouth 2 (two) times a day 10/12/2023 losartan (COZAAR) 25 mg tablet Take 0.5 tablets (12.5 mg total) by mouth daily 15 tablet 11 pen needle, diabetic (BD Ultra-Fine Short Pen Needle) 31 gauge x 5/16 needle U ONE PEN NEEDLE TO INJ INSULIN SC QID (Patient not taking: Reported on 10/14/2023) Not Taking Allergies Allergen Reactions Allopurinol Other (See comments) [...] Rash Iodinated Diagnostic Agents Ticagrelor Rash Rash Social History Tobacco Use Smoking status: Never Smokeless tobacco: Former Substance and Sexual Activity Drug use: No Sexual activity: Defer Alcohol Use: Not At Risk (06/07/2022) AUDIT-C Frequency of Alcohol Consumption: Monthly or less Average Number of Drinks: 3 or 4 Frequency of Binge Drinking: Never Family History Problem Relation Age of Onset Heart attack Father Review of Systems: Review of systems per HPI and otherwise all other systems are negative Objective Vitals: 24hr Min/Max: Temp Min: 36.3 ??C (97.3 ??F) Max: 36.6 ??C (97.9 ??F) Pulse Min: 58 Max: 82 BP Min: 114/59 Max: 149/50 Resp Min: 12 Max: 23 SpO2 Min: 92 % Max: 99 % Most Recent : Vitals: 10/20/23 1223 BP: 117/51 Pulse: 75 Resp: 18 Temp: 36.5 ??C (97.7 ??F) SpO2: 94% I/O last 2 completed shifts: In: 1272 [P.O.:360; I.V.:412; IV Piggyback:500] Out: 1623 [Urine:84; Other:1459; Chest Tube:80] I/O this shift: In: 680 [P.O.:680] Out: 1602 [Urine:100; Other:1482; Chest Tube:20] Physical Exam: General appearance: appears stated age and cooperative Lungs: clear to auscultation bilaterally Heart: regular rate and rhythm, S1, S2 normal, no murmur, click, rub or gallop Abdomen: soft, non-tender; bowel sounds normal; no masses, no organomegaly Lab/Radiology/Diagnostic Review: Laboratory review: POC Glucose: Lab Results Component Value Date GLUCOSE 115 10/20/2023 GLUCOSE 105 10/20/2023 Latest Reference Range & Units Most Recent Hgb A1C 4.0 - 5.6 % 8.1 (H) 10/16/23 15:27 (H): Data is abnormally high Assessment /Plan Principal Problem: CAD in [place] artery 1. Uncontrolled type 1 diabetes, A1c noted to be 8.1% 10/14, Off IV insulin. Offered to resume pump. Pt not wanting to do insulin pump yet. BASAL BOLUS: NPH 30 units, 10 PM. PD starting at [place] NPH 15 units QAM, Humalog 3 units QAC, TID. SSI in daytime. Discussed with pt. This note was transcribed using Speech Recognition software. May contain unintended grammar and spelling errors. If there are any questions or major errors, please contact me. Thank you for allowing us to participate in the care of this patient. We will continue to follow. If you have any questions, please don't hesitate to call. Augustin Bethea MD [email or web address] Office phone: [phone] Office fax: [phone] DING ADMIN * Post-Procedure Note - Sugar Swanson RN - 10/20/2023 9:35 AM CST Peritoneal Dialysis Treatment Summary: Juvenal Garvin Jr. received peritoneal dialysis on 10/19/2023 PD catheter exit site: PD catheter dressing change completed and topical antibiotic applied per orders CCPD Duration: 8.5 Fill volumes: 2500 Dianeal solution: 2 - 6000 ml bags of 2.5% Additives: none Number of cycles: 4 Last fill volume: N/A Total UF volume: 1481 Initial drain volume: 1 CAPD In Out In Out In Out In Out In Out In Out Volume in/out: Dwell time: Number of exchanges per day: Dianeal Solution: Additives: Comments: Patient reports no problems with PD. Dressing c/d/I. Clear yellow effluent with fibrin. DING ADMIN * Plan of Care - Hermes Savage RRT - 10/20/2023 7:23 AM CST Problem: Respiratory Goal: Achieves optimal ventilation and oxygenation Outcome: Progressing Positive Expiratory Pressure Therapy Patient educated on goals of vibratory PEP therapy. Will continue to monitor patient technique and encourage use of Vibratory PEP device. Patient educated on effective cough and deep breathing at this time. Oxygen Therapy Patient is being managed on oxygen titration protocol. Wean FiO2 to maintain SpO2 >92%. Cough Patient has a strong cough on demand. Will continue to monitor sputum amount, color, and consistency. DING ADMIN * Plan of Care - Campos Farmer RN - 10/20/2023 4:08 AM CST Problem: Lack of Knowledge Goal: Ability to develop a pain control plan will improve Outcome: Progressing Problem: Medication Goal: Satisfaction with pain management medication regimen will improve Outcome: Progressing Problem: Sensory Goal: Ability to identify factors that increase pain levels will improve while working to decrease the patient's pain levels Outcome: Progressing Problem: Coping Goal: Ability to cope will improve Outcome: Progressing Problem: Health Behavior Goal: Identification of resources available to assist in meeting health care needs will improve Outcome: Progressing Problem: Discharge Planning Goal: Understanding discharge needs will improve Outcome: Progressing Problem: Obstructive Sleep Apnea (BEN) Goal: Patients ability to maintain adequate ventilation during sleep periods will improve Outcome: Progressing Problem: Health Nutrition Goal: Nutritional intake and knowledge related to Diabetes will improve Outcome: Progressing Problem: Fall Risk Goal: Ability to state ways to decrease the risk of falls will improve Outcome: Progressing Goal: Will remain free from falls Outcome: Progressing Goal: Will remain free from injury from falls Outcome: Progressing Problem: Skin Integrity Impairment Risk Goal: Mobility will improve Outcome: Progressing Goal: Understanding of ways to prevent future skin breakdown will improve Outcome: Progressing Goal: Nutritional status will improve Outcome: Progressing Goal: Risk for impaired skin integrity will decrease Outcome: Progressing Goals: Clinical Goals for the Shift: monitor vital signs, labs, titrate heparin to therapeutic, pain control DING ADMIN * Consults, Subsequent - Augustin Bethea MD - 10/19/2023 7:08 PM BUILDING ADMIN Endocrine Note Reason for Consult: type 1 DM post op, insulin pump at home. uncontrolled, ESRD on PD Subjective Patient is a 53 y.o. male with chief complaint of Uncontrolled type 1 diabetes post CABG setting, end-stage renal disease on peritoneal dialysis HPI: More awake. Off pressors. Not eating. Iv insulin 1-2 units in daytime. 3-4 units with PD. Past Medical History: Diagnosis Date CAD (coronary artery disease) Chest pain Diabetes mellitus (HCC) Diabetes mellitus type I (HCC) Dialysis patient (HCC) ESRD on dialysis (HCC) GERD (gastroesophageal reflux disease) Hyperlipidemia Hypertension Sleep apnea SOB (shortness of breath) Past Surgical History: Procedure Laterality Date APPENDECTOMY Appendectomy APPENDECTOMY CENTRAL LINE PLACEMENT > 5 YEARS N/A 06/18/2022 CORONARY ANGIOPLASTY WITH STENT PLACEMENT FEMUR SURGERY KNEE SURGERY knee surgery OPEN REDUCTION INTERNAL FIXATION ORIF OTHER SURGICAL HISTORY eye surg-vitrectomy Medications Prior to Admission Medication Sig Dispense Refill Last Dose acetaminophen 500 mg capsule Take 2 capsules (1,000 mg total) by mouth every 6 (six) hours as needed for pain 30 tablet 1 Past Week aspirin 81 mg enteric coated tablet Take 1 tablet (81 mg total) by mouth daily Past Week atorvastatin (LIPITOR) 80 mg tablet Take 1 tablet (80 mg total) by mouth daily 10/12/2023 calcitRIOL (ROCALTROL) 0.25 mcg capsule Take 1 capsule (0.25 mcg total) by mouth daily 10/12/2023 calcium acetate,phosphat bind, (PHOSLO) 667 mg capsule Take 1 capsule (667 mg total) by mouth 4 (four) times a day (with meals and nightly) With meals and snack 10/12/2023 cetirizine (ZyrTEC) 10 mg tablet Take 1 tablet (10 mg total) by mouth daily as needed for allergies10/12/2023 cholecalciferol (VITAMIN D-3) 2000 unit tablet Take 25 tablets (50,000 Units total) by mouth once aweek Past Week clopidogrel (PLAVIX) 75 mg tablet TAKE 1 TABLET BY MOUTH DAILY 90 tablet 0 10/12/2023 colchicine (COLCRYS) 0.6 mg tablet Take 1 tablet (0.6 mg total) by mouth 3 (three) times a week Monday, Monday, Monday10/12/2023 EZETIMIBE ORAL Take 10 mg by mouth daily 10/12/2023 famotidine (PEPCID) 40 mg tablet Take 0.5 tablets (20 mg total) by mouth nightly 10/12/2023 gemfibroziL (LOPID) 600 mg tablet Take 1 tablet (600 mg total) by mouth 2 (two) times a day before breakfast and lunch 10/12/2023 icosapent ethyL (VASCEPA) 1 gram capsule Take 2 capsules (2 g total) by mouth 2 (two) times a day 10/12/2023 insulin lispro (HumaLOG, ADMELOG) 100 unit/mL vial for injection THIS IS FOR THE INSULIN PUMP: Continue Omnipod 5 insulin pump with [employer] G6 CGM at home settings: TIME BASAL RATE TOTAL BASAL DAILY DOSE: 65.85 0330 1.7 units/hour 0800 0.8 units/hour 1999 5.8 units/hour 10/12/2023 isosorbide mononitrate ER (IMDUR) 30 mg 24 hr tablet TAKE 1 TABLET BY MOUTH EVERY DAY 90 tablet 0 10/12/2023 metoprolol (LOPRESSOR) 100 mg tablet Take 1 tablet (100 mg total) by mouth every 12 (twelve) hours 10/12/2023 NIFEdipine (NIFEdipine XL) 90 mg 24 hr tablet Take 1 tablet (90 mg total) by mouth daily 10/12/2023 omeprazole (PriLOSEC) 20 mg capsule Take 1 capsule (20 mg total) by mouth daily 10/12/2023 potassium chloride ER 10 mEq CR tablet Take 2 tablet/capsule (20 mEq total) by mouth nightly 10/12/2023 ranolazine ER (RANEXA) 500 mg 12 hr tablet Take 1 tablet (500 mg total) by mouth 2 (two) times a day 10/12/2023 losartan (COZAAR) 25 mg tablet Take 0.5 tablets (12.5 mg total) by mouth daily 15 tablet 11 pen needle, diabetic (BD Ultra-Fine Short Pen Needle) 31 gauge x 5/16 needle U ONE PEN NEEDLE TO INJ INSULIN SC QID (Patient not taking: Reported on 10/14/2023) Not Taking Allergies Allergen Reactions Allopurinol Other (See comments) [...] Rash Iodinated Diagnostic Agents Ticagrelor Rash Rash Social History Tobacco Use Smoking status: Never Smokeless tobacco: Former Substance and Sexual Activity Drug use: No Sexual activity: Defer Alcohol Use: Not At Risk (06/07/2022) AUDIT-C Frequency of Alcohol Consumption: Monthly or less Average Number of Drinks: 3 or 4 Frequency of Binge Drinking: Never Family History Problem Relation Age of Onset Heart attack Father Review of Systems: Review of systems per HPI and otherwise all other systems are negative Objective Vitals: 24hr Min/Max: Temp Min: 36.3 ??C (97.4 ??F) Max: 37 ??C (98.6 ??F) Pulse Min: 60 Max: 87 BP Min: 122/68 Max: 149/50 Resp Min: 8 Max: 27 SpO2 Min: 89 % Max: 100 % Most Recent : Vitals: 10/19/23 1600 BP: 149/50 Pulse: 75 Resp: 12 Temp: SpO2: 94% I/O last 2 completed shifts: In: 600 [P.O.:100; I.V.:500] Out: 1763 [Urine:189; Other:1459; Chest Tube:115] No intake/output data recorded. Physical Exam: General appearance: appears stated age and cooperative Lungs: clear to auscultation bilaterally Heart: regular rate and rhythm, S1, S2 normal, no murmur, click, rub or gallop Abdomen: soft, non-tender; bowel sounds normal; no masses, no organomegaly Lab/Radiology/Diagnostic Review: Laboratory review: POC Glucose: Lab Results Component Value Date GLUCOSE 94 10/19/2023 GLUCOSE 188 10/19/2023 Latest Reference Range & Units Most Recent Hgb A1C 4.0 - 5.6 % 8.1 (H) 10/16/23 15:27 (H): Data is abnormally high Assessment /Plan Principal Problem: CAD in [place] artery 1. Uncontrolled type 1 diabetes, A1c noted to be 8.1% 10/14, Off insulin pump, Continued on IV insulin in the immediate CABG setting, More awake. Off pressors. Not eating. Plan to transition off IV insulin. BASAL BOLUS: NPH 30 units, 10 PM. PD starting at [place] NPH 15 units QAM, Humalog 3 units QAC, TID. SSI in daytime. Discussed with CVR team. This note was transcribed using Speech Recognition software. May contain unintended grammar and spelling errors. If there are any questions or major errors, please contact me. Thank you for allowing us to participate in the care of this patient. We will continue to follow. If you have any questions, please don't hesitate to call. Augustin Bethea MD [facility] [email or web address] Office phone: [phone] Office fax: [phone] DING ADMIN * Plan of Care - Toña Shaa RRT - 10/19/2023 3:36 PM CST Problem: Respiratory Goal: Achieves optimal ventilation and oxygenation Outcome: Progressing Goal: Ability to maintain a clear airway will improve Outcome: Progressing Positive Expiratory Pressure Therapy Patient educated on goals of vibratory PEP therapy. Will continue to monitor patient technique and encourage use of Vibratory PEP device. Patient educated on effective cough and deep breathing at this time. Oxygen Therapy Patient is being managed on oxygen titration protocol. Wean FiO2 to maintain SpO2 >92%. DING ADMIN * Post-Procedure Note - Sugar Swanson RN - 10/19/2023 11:30 AM CST Peritoneal Dialysis Treatment Summary: Juvenal Garvin Jr. received peritoneal dialysis on 10/18/2023 PD catheter exit site: PD catheter dressing change completed and topical antibiotic applied per orders CCPD Duration: 8.5 hours Fill volumes: 2500 Dianeal solution: 2 - 6000 ml bags of 2.5% Additives: none Number of cycles: 4 Last fill volume: N/A Total UF volume: 1375 Initial drain volume: 84 CAPD In Out In Out In Out In Out In Out In Out Volume in/out: Dwell time: Number of exchanges per day: Dianeal Solution: Additives: Comments: Patient reports no problems with PD. Dressing c/d/I. Clear yellow effluent with fibrin. MD notified. DING ADMIN * Plan of Care - Ken Martell RRT - 10/18/2023 10:25 PM CST NPPV Patient is tolerating non-invasive ventilation well. Mask fits well with minimal leak. No skin break down noted. Will continue to monitor and titrate per MD order. DING ADMIN * Provider Query - Dawna Castellanos NP - 10/18/2023 6:36 PM CST The documentation is unclear. Please clarify the 10/17 documentation of NSTEMI. (See Criteria Below). ___ Hx of NSTEMI (Greater than 28 days ago) _x__ Acute NSTEMI occurred at OSH and pt transferred to [facility] for continued care for NSTEMI ___ Other (Specify): Provider Response: Clinical Indicators/Treatment: - Per EPIC: Hx of NSTEMI in June 2022 - Transfer from OSH with CAD and - 10/17 PN: NSTEMI s/p CABG...During hospitalization found to have elevated Troponins prompted cardiology evaluation and LHC significant for multivessel CAD and subsequently also found aortic stenosis. - 10/18 PN : CAD.. Prior SC and multiple PCI.. the patient underwent cardiac cath that showed multivessel disease. - Labs/Notes from OSH not available - Treatment: CABG: References: Fourth [place] Definition of Myocardial Infarction Myocardial Infarction Diagnosis of myocardial infarction requires: Elevated troponin blood test (troponin value above 99th percentile upper reference limit) AND at least one of the following: Symptoms of acute myocardial ischemia (Types 1-5 SC) Clinical evidence of ischemia, as evidenced in an EKG showing new ischemic changes (Type 1, Type 2,Type 3, or Type 4a SC) Development of pathological Q waves (Types 1-5 SC) Imaging evidence of new loss of viable myocardium or new regional wall motion abnormality in a pattern consistent with an ischemic etiology (Types 1-5 SC) Identification of a coronary thrombus by angiography including intracoronary imaging or by autopsy (Type 1 SC only) Angiographic findings consistent with procedural flow-limiting complication such as coronary dissection, occlusion of a major epicardial artery or graft, side branch occlusion-thrombus, or disruptionof collateral flow or distal embolization (Type 4 or Type 5 only) If provider believes patient has had or is having a myocardial Infarction in the absence of above clinical indicators, please document rationale and clinical impression in detail Myocardial Infarction References ICD-10-CM Official Guidelines for Coding and Reporting, 2019 Fourth [place] Definition of Myocardial Infarction, Scot Uriostegui et al., Journal of [place] [employer] 2018March 2018, http://www.onlinejacc.org/content/early//j.jacc [email or web address] [place] Definition Separates SC From Myocardial Injury, Lisa Freeman., [employer], April 15, 2018, [email or web address] [place] definition of myocardial infarction, Joint ESC/ACCF/AHA/WHF Task Force for the Redefinition of Myocardial Infarction From the ICD-10-CM Coding Guidelines, use of terms such as likely, suspected, possible, or probable(associated with a specific diagnosis that is being evaluated, monitored, or treated as if it exists) are acceptable and can be coded in the inpatient setting when documented at the time of discharge. This documentation will become part of the patient???s medical record. DING ADMIN * Plan of Care - Renetta Keys RN - 10/18/2023 6:00 PM CST Problem: Lack of Knowledge Goal: Ability to develop a pain control plan will improve Outcome: Progressing Problem: Medication Goal: Satisfaction with pain management medication regimen will improve Outcome: Progressing Problem: Sensory Goal: Ability to identify factors that increase pain levels will improve while working to decrease the patient's pain levels Outcome: Progressing Problem: Coping Goal: Ability to cope will improve Outcome: Progressing Problem: Health Behavior Goal: Identification of resources available to assist in meeting health care needs will improve Outcome: Progressing Problem: Discharge Planning Goal: Understanding discharge needs will improve Outcome: Progressing Problem: Obstructive Sleep Apnea (BEN) Goal: Patients ability to maintain adequate ventilation during sleep periods will improve Outcome: Progressing Problem: Health Nutrition Goal: Nutritional intake and knowledge related to Diabetes will improve Outcome: Progressing Problem: Fall Risk Goal: Ability to state ways to decrease the risk of falls will improve Outcome: Progressing Goal: Will remain free from falls Outcome: Progressing Goal: Will remain free from injury from falls Outcome: Progressing Goals: Monitor blood sugars, labs, vitals, extubate if tolerating CPAP. Summary: Pt A/Ox3-4. Is definitely forgetful, but memory improving as day progresses. Recognized brother and called him by name. Vitals stable and able to wean off levo and vaso. Dobutamine is being weaned per orders. Extubated to 5LNC. Currently on 2L NC. Pulls 1500 on IS. 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 Insulin gtt continues per orders. Appetite hindered due to nausea and some vomiting this afternoon. Zofran and haldol given. Pt states is better but doesn't want to eat at this time. Will continue to encourage increased activity, IS, Improved appetite, DING ADMIN * Post-Procedure Note - Sugar Swanson RN - 10/18/2023 8:05 AM CST Peritoneal Dialysis Treatment Summary: Juvenal Garvin Jr. received peritoneal dialysis on 10/17/2023 PD catheter exit site: PD catheter dressing change completed and topical antibiotic applied per orders CCPD Duration: 8.5 hours Fill volumes: 2500 ml Dianeal solution: 2 - 6000 ml bags of 2.5% Additives: none Number of cycles: 4 Last fill volume: none Total UF volume: 1186 Initial drain volume: 93 CAPD In Out In Out In Out In Out In Out In Out Volume in/out: Dwell time: Number of exchanges per day: Dianeal Solution: Additives: Comments: Patient appeared to tolerated well. There was no report of problems with the machine. Dressing clean, dry and intact and effluent clear and yellow. DING ADMIN * Plan of Care - Ken Martell, FANY - 10/18/2023 3:31 AM CST Mechanical Ventilation Patient is seen on full ventilator support. Patient is synchronous with the ventilator at the time.Will continue to monitor all pertinent lab data, chest radiographs and CT scans when available. Will titrate per MD order. DING ADMIN * Op Note - Jaqueline Valero MD - 10/17/2023 8:47 AM CST OPERATIVE REPORT SURGEON Jaqueline Valero MD PREOPERATIVE DIAGNOSES End-stage renal disease History of coronary artery stenting Acute on chronic systolic congestive heart failure Moderate to severe symptomatic aortic valve stenosis Severe 3 vessel coronary artery disease Severely reduced left ventricular systolic function POSTOPERATIVE DIAGNOSES Same PROCEDURE PERFORMED 1. Aortic valve replacement (25 mm OnX mechanical prosthesis, model #ONXANE, serial #[id number] ) 2. Coronary artery bypass grafting x 3 (in situ left internal mammary artery anastomosed to the 2 mm left anterior descending coronary artery, aortocoronary reverse saphenous vein bypass graft to the2 mm obtuse marginal branch, aortocoronary reverse saphenous vein bypass graft to the 1.5 mm posterior descending artery) 3. Endoscopic greater saphenous vein harvesting 4. Sternal plating 5. Cutaneous wound VAC placement (25 cm) DATE OF PROCEDURE 10/17/2023 HEEL SCOURER CEZAR Bernstein ANESTHESIA General Endotracheal Anesthesia ANESTHESIOLOGIST Ayden Alan MD COMPLICATIONS None SPECIMENS None ESTIMATED BLOOD LOSS Unable to determine CONDITION Stable, intubated to the cardiovascular ICU. GROSS FINDINGS The aortic valve was tricuspid, heavily calcified, and severely stenotic. The coronary arteries were good quality targets. The conduits were relatively good quality. The BRICE had flow of 68 mL/min with a PI of 1.8, the vein graft to the OM had flow of 143 mL/min with a PI of 2.0, and the vein graftto the posterior descending artery had flow of 84 mL/min with a PI of 1.7. The postoperative transesophageal echocardiogram revealed a normally functioning mechanical aortic valve without periprosthetic leak. The total crossclamp time was 93 minutes and the total cardiopulmonary bypass time was 117minutes. DESCRIPTION OF PROCEDURE After informed consent was obtained, the patient was brought to the operating room. He was placed on the operating table in supine position and general endotracheal anesthesia was induced. He was given a weight based dose of IV vancomycin and 3 g of IV Ancef. The patient's neck, chest, groins, and legs were prepped and draped in a sterile fashion. The right greater saphenous vein was harvested endoscopically per protocol from the groin to the knee. The wounds were closed in layers with continuous absorbable sutures. A median sternotomy was performed. The left internal mammary artery was harvested in a semi- skeletonized fashion from the subclavian vein to the arterial bifurcation. The patient was fully systemically heparinized for cardiopulmonary bypass. The distal internal mammary artery was ligated and divided. There was excellent flow noted through the mammary graft. A standard sternal retractor was placed, the pericardium was opened in the midline, and a pericardial well was made. Through pursestring sutures, the distal ascending aorta and right atrial appendage were cannulated for cardiopulmonary bypass, which was established. Antegrade and retrograde cardioplegia catheters were placed into the ascending aorta and coronary sinus, respectively. A left atrial vent was placed via the right superior pulmonary vein. The distal ascending aorta was crossclamped and cardiac arrest was achieved by sequential antegradeand retrograde KBC solution administration. A 2nd dose of retrograde cardioplegia was given, as well as antegrade down the right vein graft, approximately 45 minutes later The distal coronary anastomoses were performed first in beveled end-to-side fashions with continuous 7-0 Prolene suture. The first reverse saphenous vein bypass graft was anastomosed to the posterior descending artery. The second reverse saphenous vein bypass graft was anastomosed to the obtuse marginal branch. The left internal mammary artery was anastomosed to the mid left anterior descending coronary artery. At this point, attention was turned toward the aortic valve. A transverse aortotomy was made just above the sinotubular junction. This incision was carried down the aortic root to just distal to the left/non commissure in order to accommodate the 25 mm mechanical valve. The aortic valve was exposedwith the above findings. The aortic valve leaflets were excised and the aortic annulus was carefully decalcified. The aortic annulus and left ventricle were copiously irrigated with normal saline to wash out any debris. After appropriately sizing the aortic annulus, the prosthetic aortic valve was sutured to the aortic annulus with interrupted horizontal mattress 2-0 Ethibond sutures, placing the pledgets on the ventricular side. Great care was taken to avoid impingement of either the right or left coronary ostia, both of which were observed to be widely patent following implantation of the valve. The transverse aortotomy was closed with continuous 5-0 Prolene suture. Prior to completion ofthe suture line, the left side of the heart was de-aired by standard de-airing maneuvers. The proximal coronary anastomoses were then performed. Two aortotomies were made in the ascending aorta, enlarged with a 4 mm punch, and used to create the proximal anastomoses separately of the reverse saphenous vein bypass grafts to the ascending aorta. The anastomoses were each created in a beveled end-to-side fashion with continuous 6-0 Prolene suture. A retrograde mixer operator helper hot metal was given, the patient was placed into Trendelenburg position and the crossclamp was removed. There was return of normal spontaneous cardiac activity without the need for electrical defibrillation. The patient was thena slow junctional rhythm so temporary epicardial pacing wires were placed on the right ventricle and right atrium and AV pacing was commenced. The patient was rewarmed to 37 degrees Celsius. After anappropriate period of reperfusion on bypass, he was easily weaned from cardiopulmonary bypass on low-dose inotropes and vasopressors. Flow was checked through the bypass grafts with a orangutrans Doppler flow probe and each was found to have acceptable flow. The postoperative transesophageal echocardiogram revealed a normally functioning mechanical aortic valve without periprosthetic leak. Therefore, protamine was administered and the patient was decannulated. All of the cannulation sites, the transverse aortotomy, and the coronary anastomoses were inspectedand hemostasis was secured. The pericardium, sternum, and wound were copiously irrigated with normal saline. Chest tubes were placed into the anterior mediastinum, posterior pericardium, and left pleural space. The sternotomy was then closed in layers with both three sternal wires as well as three 6 hole plates. The sternal wound was dressed with a cutaneous wound VAC using a 25 cm black sponge. The leg incisions were dressed with Prineo. The patient was then transported to the cardiovascular ICU intubated in stable condition. All needle, sponge, and instrument counts were correct at the completion of the procedure. JAQUELINE VALERO M.D. CC: Hamlet Ortega MD (Cardiology) (Referring Physician) Aditya Correa MD (Primary Care Provider) DING ADMIN * Brief Op Note - Jaqueline Valero MD - 10/17/2023 8:47 AM CST Operative Progress Note Surgical Team: Surgeons and Role: * Jaqueline Valero MD - Primary Anesthesiologist: Ayden Alan MD AUTHOR'S AGENT: Ravi Thacker CRNA Mate Fishing Vessel: Chang Stout CCP; Fransisco Ziegler CCP Electrical Appliance Servicer: Nini Gibbs RN Scrub: Yamilet Bolivar RN; Teresa Dillon ST RNFA: Jessica Frost RN; Carey Weber RN [place] Electrical Appliance Servicer: Dee Ibarra RN DATE OF SURGERY : 10/17/2023 Preoperative Diagnosis: Pre-op Diagnosis * Aortic valve stenosis, etiology of cardiac valve disease unspecified [I35.0] * Coronary arteriosclerosis in [place] artery [I25.10] Postoperative Diagnosis: Post-op Diagnosis * Aortic valve stenosis, etiology of cardiac valve disease unspecified [I35.0] * Coronary arteriosclerosis in [place] artery [I25.10] Procedure(s): Procedure(s) (LRB): CORONARY ARTERY BYPASS GRAFT, AORTIC VALVE REPLACEMENT (N/A) REPLACEMENT AORTIC VALVE (N/A) BRICE to LAD SVG to OM SVG to PDA Operative Findings: Good flows through the grafts at the completion of the procedure with a normally functioning mechanical aortic valve and no perivalvular leak Estimated Blood Loss: Unable to determine due to cardiopulmonary bypass. Specimens: No specimen collected in procedure Implants: Implant Name Type Inv. Item Serial No. Poultry Husbandman Lot No. [id number] No. Used Action ON-X INTRNL Valve Coronary Aortic Mechanical On X 25mm ONXANE-25 - [id number] - [id number] ON-X INTRNL Valve Coronary Aortic Mechanical On X 25mm ONXANE-25 [id number] On-X Intrnl N/A 1 Implanted Blood/Blood Products Transfused: 1 unit platelets, 2 units FFP, 10 pack cryo, 3 units PRBC Complications: None Condition on Discharge from the operating room was stable Jaqueline Valero MD Date: 10/17/2023 Time: 12:59 PM No Resident involved on case DING ADMIN * Post-Procedure Note - Zia Mahoney RN - 10/17/2023 3:38 AM BUILDING ADMIN Peritoneal Dialysis Treatment Summary: Juvenal Garvin Jr. received peritoneal dialysis on 10/16/2023 PD catheter exit site: PD catheter dressing change completed and topical antibiotic applied per orders CCPD Duration: 8.5 hours Fill volumes: 2500 ml Dianeal solution: 2.5% in 6L x2 Additives: none Number of cycles: 4 Last fill volume: 0 Total UF volume: 1302 ml Initial drain volume: 1501 ml CAPD In Out In Out In Out In Out In Out In Out Volume in/out: Dwell time: Number of exchanges per day: Dianeal Solution: Additives: Comments: Pt tolerated tx well. Effluent yellow and clear. Dressing c/d/i. DING ADMIN * Plan of Care - Lucinda Mathews, FANY - 10/16/2023 9:28 PM CST NPPV- Patient is tolerating non-invasive ventilation well. Mask fits well with minimal leak. No skin break down noted. Will continue to monitor and titrate per MD order. Problem: Obstructive Sleep Apnea (BEN) Goal: Patients ability to maintain adequate ventilation during sleep periods will improve Outcome: Progressing DING ADMIN * Plan of Care - Yamilet Lopez RN - 10/16/2023 3:52 PM CST Goals: Clinical Goals for the Shift: vss, monitor blood sugar, continue PD, possible pre-op orders Summary: patient has pre-op orders. Consent is signed. Dialysis aware that patient is pre-op in theam and needs to complete dialysis early. Vss. Consent signed in chart. NPO 0000. Insulin orders forblood glucose control. Problem: Lack of Knowledge Goal: Ability to develop a pain control plan will improve Outcome: Progressing Problem: Medication Goal: Satisfaction with pain management medication regimen will improve Outcome: Progressing Problem: Sensory Goal: Ability to identify factors that increase pain levels will improve while working to decrease the patient's pain levels Outcome: Progressing Problem: Coping Goal: Ability to cope will improve Outcome: Progressing Problem: Discharge Planning Goal: Understanding discharge needs will improve Outcome: Progressing DING ADMIN * Initial Assessments - Genie Benjamin RN - 10/16/2023 10:46 AM BUILDING ADMIN CM Initial Assessment Interview Note Information Obtained From: Patient (10/16/23 104) Admission Source: transferred from outside hospital for cardiac surgery Impression: multivessel CAD , Aortic stenosis Plan Includes: CABG/ AVR on 10/17/23. Likely home with home health care at discharge. Primary Source of Transportation: Does the patient need discharge transport arranged?: No (10/16/23 1042) Health Insurance Coverage: A[employer]na Medicare and IDPA Prescription Coverage: yes Pharmacy: [facility] #[id number] - [place], [place] - [address] [place] [address] Primary Care Provider: Aditya Correa MD Prior to Admission: Functional Status: Minimal assist with ADLs Primary Caregiver: Self Support System: Children Home Care Services: No Outpatient Services: No Durable Medical Equipment: Cane (single prong) Living Arrangements: Children Type of Residence: Private residence Steps in home?: No steps inside or outside Medication management: Independent (10/13/230) SDOH: Transportation: In the past 12 months, has lack of transportation kept you from medical appointments or from getting medications?: No In the past 12 months, has lack of transportation kept you from meetings, work, or from getting things needed for daily living?: No (10/16/231044) Financial Resource: How hard is it for you to pay for the very basics like food, housing, medical care, and heating?: Not very hard (10/16/23 104) Housing: In the last 12 months, was there a time when you were not able to pay the mortgage or rent on time?: No In the last 12 months, how many places have you lived?: 1 In the last 12 months, was there a time when you did not have a steady place to sleep or slept in ashelter (including now)?: No (10/16/231044) Utilities: No, (10/16/231044) Social Connections: In a typical week, how many times do you talk on the phone with family, friends, or neighbors?: More than three times a week How often do you get together with friends or relatives?: Twice a week How often do you attend congregational or orthodox services?: 1 to 4 times per year Do you belong to any clubs or organizations such as congregational groups, unions, fraternal or athletic groups, or school groups?: No How often do you attend meetings of the clubs or organizations you belong to?: Never Are you , , , , never , or living with a partner?: (10/16/231044) Food Insecurity: Within the past 12 months, you worried that your food would run out before you got the money to buymore.: Never true Within the past 12 months, the food you bought just didn't last and you didn't have money to get more.: Never true (10/16/23 104) Alcohol Use: PHQ Screening Potential discharge needs include: Home Health: care home (10/16/231041) Dialysis: Dialysis History Start End Type Center Comments Peritoneal [facility] Dialysis Center Information [facility] Address: [address] [place] [address] Behavioral Health Services: Behavioral Health Services: No (10/16/231041) Patient expects to be Discharged to: Private residence, (10/16/231041) Additional Information: Independent with adl's sloop captain. 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 Independent with PD sloop captain. Active with [facility] in [place], [place] under the care of Dr. Stephen. Plan is for cardiacsurgery tomorrow, 10/17. Case management will follow and monitor for discharge planning needs. Patient's Identified Problem/Goal Problem: Ensure acute medical needs are met and that patient has a safe discharge plan. Goal: Secure a discharge plan that patient/family are agreeable with and ensure patient has continuum of care. Case management will follow for discharge planning and send referrals as needed. Goals include: To assure continuity of care, To maximize coping skills, To assure patient is in a safe environment and To assure access to community resources. Plan includes: 1. Collaboration with patient, MD, direct care nurse, Vinyl Installer, and other members of the health care team to assure needed interventions completed. 2. Return patient to optimal level of self-care post discharge. 3. Full Decator Operator will follow for Discharge Planning - interventions as needed 4. Anticipated level of care at discharge 5. Planned Discharge Disposition Genie Benjamin RN DING ADMIN * Post-Procedure Note - Jackie Masters RN - 10/16/2023 9:47 AM CST Peritoneal Dialysis Treatment Summary: Juvenal Garvin Jr. received peritoneal dialysis on 10/15/2023 PD catheter exit site: PD catheter dressing change completed and topical antibiotic applied per orders CCPD Duration: 8.5 hours Fill volumes: 2500 mls Dianeal solution: 2.5 % in 6000 mld X 2 bags , Extraneal 7.5 % in 2500 mls bag X 1 Additives: 0 Number of cycles: 4 Last fill volume: 1000 mls Total UF volume: 891 mls Initial drain volume: 1251 mls CAPD In Out In Out In Out In Out In Out In Out Volume in/out: Dwell time: Number of exchanges per day: Dianeal Solution: Additives: Comments: No c/o overnight with PD tx , dressing dry & intact , Effluent clear & yellow DING ADMIN * Plan of Care - Juanito Barrett RRT - 10/15/2023 9:43 PM CST Nocturnal CPAP Patient is tolerating non-invasive ventilation well. Mask fits well with minimal leak. No skin break down noted. Will continue to monitor and titrate per MD order.Oxygen Therapy Patient is being managed on oxygen titration protocol. Wean FiO2 to maintain SpO2 >92%. DING ADMIN * Plan of Care - Janett Schulz RN - 10/15/2023 3:53 PM CST Problem: Lack of Knowledge Goal: Ability to develop a pain control plan will improve Outcome: Progressing Flowsheets (Taken 10/15/2023 1553) Ability to develop a pain control plan will improve: Educate pain scale for assessing level of pain Teach notification to healthcare provider of episodes of pain Problem: Medication Goal: Satisfaction with pain management medication regimen will improve Outcome: Progressing Goals: Clinical Goals for the Shift: vss, monitor tele, monitor cp, heparin infusion Summary: vss, SB on tele, denies c/o chest pain, therapeutic on heparin infusion DING ADMIN * Post-Procedure Note - Zia Mahoney RN - 10/15/2023 4:44 AM BUILDING ADMIN Peritoneal Dialysis Treatment Summary: Juvenal Garvin Jr. received peritoneal dialysis on 10/14/2023 PD catheter exit site: PD catheter dressing change completed and topical antibiotic applied per orders CCPD Duration: 8.5 hrs Fill volumes: 2500 ml Dianeal solution: 2.5% in 6L x2; 7.5% in 2.5L x1 Additives: none Number of cycles: 4 Last fill volume: 1000 ml Total UF volume: 1189 ml Initial drain volume: 12 ml CAPD In Out In Out In Out In Out In Out In Out Volume in/out: Dwell time: Number of exchanges per day: Dianeal Solution: Additives: Comments: Pt tolerated tx well. Effluent yellow and clear. Dressing c/d/I. DING ADMIN * Plan of Care - Juanito Barrett RRT - 10/14/2023 9:44 PM CST Nocturnal CPAP Patient is tolerating non-invasive ventilation well. Mask fits well with minimal leak. No skin break down noted. Will continue to monitor and titrate per MD order.Oxygen Therapy Patient is being managed on oxygen titration protocol. Wean FiO2 to maintain SpO2 >92%. DING ADMIN * Plan of Care - Janett Schulz RN - 10/14/2023 6:06 PM CST Problem: Lack of Knowledge Goal: Ability to develop a pain control plan will improve Outcome: Progressing Problem: Medication Goal: Satisfaction with pain management medication regimen will improve Outcome: Progressing Problem: Sensory Goal: Ability to identify factors that increase pain levels will improve while working to decrease the patient's pain levels Outcome: Progressing Goals: Clinical Goals for the Shift: vss, monitor tele, monitor cp, heparin infusion Summary: vss, sinus rosa on tele, no c/o chest pain, heparin gtt subtherapeutic, adjusted trinity MAR DING ADMIN * Plan of Care - Ellie Zeng RN - 10/14/2023 1:55 AM CST Goals: Clinical Goals for the Shift: monitor vs tele labs and blood sugars, orientate to unit, promote comfort and safety, manage pain Summary: patient stable throughout shift with no complaints of pain. Blood sugars trending down, patient had RT set up CPAP for sleep. Patient NPO since 0000. DING ADMIN DING ADMIN documented in this encounter Plan of Treatment Pending Results Name Type Priority Associated Diagnoses Date /Time Renal function panel Lab Routine 09/22 1:06 AM BUILDING ADMIN Fibrinogen Lab Routine 10/18/2023 1:5 4 AM BUILDING ADMIN Protime-INR Lab Timed 10/25/2023 12 :33 AM BUILDING ADMIN aPTT Lab Routine 10/26/2023 2:2 9 AM BUILDING ADMIN aPTT Lab Routine 10/27/2023 2:3 0 AM BUILDING ADMIN TSH Lab Routine 10/27/2023 2:3 0 AM BUILDING ADMIN Scheduled Orders Name Type Priority Associated Diagnoses Orde r Schedule Renal function panel Lab Routine Once for 1 Occurrences starting 10/15/2023 until 10/15/2023 ECG 12 lead ECG STAT As needed unt il discontinued starting 10/17/2023 Fibrinogen Lab Routine Once for 1 Occ urrences starting 10/18/2023 until 10/18/2023 Protime-INR Lab Timed Once for 1 Oc currences starting 10/25/2023 until 10/25/2023 aPTT Lab Routine Once for 1 Occ urrences starting 10/26/2023 until 10/26/2023 aPTT Lab Routine Once for 1 Occ urrences starting 10/27/2023 until 10/27/2023 TSH Lab Routine Once for 1 Occ urrences starting 10/27/2023 until 10/27/2023 Scheduled Referrals Name Type Priority Associated Diagnoses Order Schedule Ambulatory referral to Home Health Outpatient Referral Routine CAD in [place] artery 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[place] artery of [place] heart with stable angina pectoris (CMS/HCC) (HCC) Aortic stenosis, severe 1 Occurrences starting 10/20/2023 until 04/21/2024 Ambulatory referral to Cardiac Rehab Outpatient Referral Routine S/P CABG x 3 NSTEMI (non-ST elevated myocardial infarction) (CMS/HCC) (HCC) S/P AVR Expected: 11/07/2023 (Approximate), Expires: 10/23/2024 documented as of this encounter Procedures Procedure Name Priority Date/Time Associated Diagnosis Comments POCT GLUCOSE DEVICE Routine 11/03/2023 5:16 PM CDT APTT Timed 11/03/2023 11:43 AM CDT PROTIME-INR STAT 11/03/2023 11:43 AM CDT POCT GLUCOSE DEVICE Routine 11/03/2023 11:38 AM CDT POCT GLUCOSE DEVICE Routine 11/03/2023 8:05 AM CDT EGFR Routine 11/03/2023 4:41 AM CDT APTT Timed 11/03/2023 4:41 AM CDT PROTIME-INR Routine 11/03/2023 4:41 AM CDT CBC WITHOUT DIFFERENTIAL Routine 11/03/2023 4:41 AM CDT MAGNESIUM Routine 11/03/2023 4:41 AM CDT RENAL FUNCTION PANEL Routine 11/03/2023 4:41 AM CDT APTT Timed 11/02/2023 8:38 PM CDT POCT GLUCOSE DEVICE Routine 11/02/2023 8:22 PM CDT POCT GLUCOSE DEVICE Routine 11/02/2023 5:22 PM CDT APTT STAT 11/02/2023 1:17 PM CDT PEP THERAPY Routine 11/02/2023 1:00 PM CDT POCT GLUCOSE DEVICE Routine 11/02/2023 12:27 PM CDT POCT GLUCOSE DEVICE Routine 11/02/2023 8:15 AM CDT PEP THERAPY Routine 11/02/2023 8:00 AM CDT EGFR Routine 11/02/2023 2:16 AM CDT PROTIME-INR Routine 11/02/2023 2:16 AM CDT CBC WITHOUT DIFFERENTIAL Routine 11/02/2023 2:16 AM CDT MAGNESIUM Routine 11/02/2023 2:16 AM CDT RENAL FUNCTION PANEL Routine 11/02/2023 2:16 AM CDT POCT GLUCOSE DEVICE Routine 11/02/2023 2:06 AM CDT CONTINUOUS CYCLIC PERITONEAL DIALYSIS (CCPD) Routine 11/02/2023 12:30 AM CDT PEP THERAPY Routine 11/01/2023 10:00 PM CDT POCT GLUCOSE DEVICE Routine 11/01/2023 8:25 PM CDT PEP THERAPY Routine 11/01/2023 6:00 PM CDT POCT GLUCOSE DEVICE Routine 11/01/2023 5:17 PM CDT PEP THERAPY Routine 11/01/2023 1:00 PM CDT POCT GLUCOSE DEVICE Routine 11/01/2023 12:01 PM CDT POCT GLUCOSE DEVICE Routine 11/01/2023 8:27 AM CDT PEP THERAPY Routine 11/01/2023 8:00 AM CDT EGFR Routine 11/01/2023 2:09 AM CDT PROTIME-INR Routine 11/01/2023 2:09 AM CDT CBC WITHOUT DIFFERENTIAL Routine 11/01/2023 2:09 AM CDT MAGNESIUM Routine 11/01/2023 2:09 AM CDT VANCOMYCIN LEVEL RANDOM Routine 11/01/2023 2:09 AM CDT RENAL FUNCTION PANEL Routine 11/01/2023 2:09 AM CDT POCT GLUCOSE DEVICE Routine 11/01/2023 2:05 AM CDT CONTINUOUS CYCLIC PERITONEAL DIALYSIS (CCPD) Routine 11/01/2023 12:30 AM CDT PEP THERAPY Routine 10/31/2023 10:00 PM CDT POCT GLUCOSE DEVICE Routine 10/31/2023 9:21 PM CDT PEP THERAPY Routine 10/31/2023 6:00 PM CDT POCT GLUCOSE DEVICE Routine 10/31/2023 5:12 PM CDT PEP THERAPY Routine 10/31/2023 1:00 PM CDT POCT GLUCOSE DEVICE Routine 10/31/2023 12:02 PM CDT POCT GLUCOSE DEVICE Routine 10/31/2023 12:01 PM CDT POCT GLUCOSE DEVICE Routine 10/31/2023 8:06 AM CDT PEP THERAPY Routine 10/31/2023 8:00 AM CDT EGFR Routine 10/31/2023 2:25 AM CDT PROTIME-INR Routine 10/31/2023 2:25 AM CDT CBC WITHOUT DIFFERENTIAL Routine 10/31/2023 2:25 AM CDT MAGNESIUM Routine 10/31/2023 2:25 AM CDT RENAL FUNCTION PANEL Routine 10/31/2023 2:25 AM CDT CONTINUOUS CYCLIC PERITONEAL DIALYSIS (CCPD) Routine 10/31/2023 12:30 AM CDT PEP THERAPY Routine 10/30/2023 10:00 PM CDT POCT GLUCOSE DEVICE Routine 10/30/2023 9:39 PM CDT PEP THERAPY Routine 10/30/2023 6:01 PM CDT POCT GLUCOSE DEVICE Routine 10/30/2023 5:31 PM CDT PEP THERAPY Routine 10/30/2023 1:00 PM CDT POCT GLUCOSE DEVICE Routine 10/30/2023 12:17 PM CDT PEP THERAPY Routine 10/30/2023 8:00 AM CDT POCT GLUCOSE DEVICE Routine 10/30/2023 6:20 AM CDT EGFR Routine 10/30/2023 4:18 AM CDT PROTIME-INR Routine 10/30/2023 4:18 AM CDT CBC WITHOUT DIFFERENTIAL Routine 10/30/2023 4:18 AM CDT MAGNESIUM Routine 10/30/2023 4:18 AM CDT RENAL FUNCTION PANEL Routine 10/30/2023 4:18 AM CDT CONTINUOUS CYCLIC PERITONEAL DIALYSIS (CCPD) Routine 10/30/2023 12:30 AM CDT PEP THERAPY Routine 10/29/2023 10:00 PM CDT POCT GLUCOSE DEVICE Routine 10/29/2023 9:59 PM CDT PEP THERAPY Routine 10/29/2023 6:00 PM CDT POCT GLUCOSE DEVICE Routine 10/29/2023 5:41 PM CDT US VEIN DUPLEX LOWER EXTREMITY BILATERAL COMPLETE ED Urgent/IP Urgent 10/29/2023 2:40 PM CDT PEP THERAPY Routine 10/29/2023 1:00 PM CDT POCT GLUCOSE DEVICE Routine 10/29/2023 12:33 PM CDT POCT GLUCOSE DEVICE Routine 10/29/2023 8:16 AM CDT PEP THERAPY Routine 10/29/2023 8:00 AM CDT EGFR Routine 10/29/2023 4:04 AM CDT PROTIME-INR Routine 10/29/2023 4:04 AM CDT CBC WITHOUT DIFFERENTIAL Routine 10/29/2023 4:04 AM CDT MAGNESIUM Routine 10/29/2023 4:04 AM CDT RENAL FUNCTION PANEL Routine 10/29/2023 4:04 AM CDT CONTINUOUS CYCLIC PERITONEAL DIALYSIS (CCPD) Routine 10/29/2023 12:30 AM BUILDING ADMIN POCT GLUCOSE DEVICE Routine 10/28/2023 8:22 PM BUILDING ADMIN POCT GLUCOSE DEVICE Routine 10/28/2023 5:24 PM BUILDING ADMIN POCT GLUCOSE DEVICE Routine 10/28/2023 12:45 PM BUILDING ADMIN POCT GLUCOSE DEVICE Routine 10/28/2023 8:04 AM BUILDING ADMIN XR CHEST 1 VIEW IP Routine 10/28/2023 6:00 AM BUILDING ADMIN EGFR Routine 10/28/2023 12:34 AM BUILDING ADMIN APTT Routine 10/28/2023 12:34 AM BUILDING ADMIN PROTIME-INR Routine 10/28/2023 12:34 AM BUILDING ADMIN CBC WITHOUT DIFFERENTIAL Routine 10/28/2023 12:34 AM BUILDING ADMIN MAGNESIUM Routine 10/28/2023 12:34 AM BUILDING ADMIN RENAL FUNCTION PANEL Routine 10/28/2023 12:34 AM BUILDING ADMIN CONTINUOUS CYCLIC PERITONEAL DIALYSIS (CCPD) Routine 10/28/2023 12:30 AM BUILDING ADMIN POCT GLUCOSE DEVICE Routine 10/27/2023 10:01 PM BUILDING ADMIN POCT GLUCOSE DEVICE Routine 10/27/2023 5:48 PM BUILDING ADMIN CONTINUOUS CYCLIC PERITONEAL DIALYSIS (CCPD) Routine 10/27/2023 3:23 PM BUILDING ADMIN POCT GLUCOSE DEVICE Routine 10/27/2023 11:54 AM BUILDING ADMIN T4, FREE Routine 10/27/2023 11:02 AM BUILDING ADMIN POCT GLUCOSE DEVICE Routine 10/27/2023 8:28 AM BUILDING ADMIN XR CHEST 1 VIEW IP Routine 10/27/2023 6:14 AM BUILDING ADMIN OSMOLALITY, BLOOD Routine 10/27/2023 6:02 AM BUILDING ADMIN EGFR Routine 10/27/2023 2:30 AM BUILDING ADMIN APTT Routine 10/27/2023 2:30 AM BUILDING ADMIN PROTIME-INR Routine 10/27/2023 2:30 AM BUILDING ADMIN CBC WITHOUT DIFFERENTIAL Routine 10/27/2023 2:30 AM BUILDING ADMIN TSH Routine 10/27/2023 2:30 AM BUILDING ADMIN MAGNESIUM Routine 10/27/2023 2:30 AM BUILDING ADMIN RENAL FUNCTION PANEL Routine 10/27/2023 2:30 AM BUILDING ADMIN POCT GLUCOSE DEVICE Routine 10/26/2023 11:15 PM BUILDING ADMIN POCT GLUCOSE DEVICE Routine 10/26/2023 4:53 PM BUILDING ADMIN POCT GLUCOSE DEVICE Routine 10/26/2023 11:57 AM BUILDING ADMIN PEP THERAPY Routine 10/26/2023 8:00 AM BUILDING ADMIN POCT GLUCOSE DEVICE Routine 10/26/2023 8:00 AM BUILDING ADMIN XR CHEST 1 VIEW IP Routine 10/26/2023 5:09 AM BUILDING ADMIN EGFR Routine 10/26/2023 2:29 AM BUILDING ADMIN APTT Routine 10/26/2023 2:29 AM BUILDING ADMIN PROTIME-INR Routine 10/26/2023 2:29 AM BUILDING ADMIN CBC WITHOUT DIFFERENTIAL Routine 10/26/2023 2:29 AM BUILDING ADMIN MAGNESIUM Routine 10/26/2023 2:29 AM BUILDING ADMIN RENAL FUNCTION PANEL Routine 10/26/2023 2:29 AM BUILDING ADMIN APTT Timed 10/25/2023 9:15 PM BUILDING ADMIN POCT GLUCOSE DEVICE Routine 10/25/2023 9:14 PM BUILDING ADMIN POCT GLUCOSE DEVICE Routine 10/25/2023 4:51 PM BUILDING ADMIN APTT Timed 10/25/2023 2:48 PM BUILDING ADMIN POCT GLUCOSE DEVICE Routine 10/25/2023 11:15 AM BUILDING ADMIN POCT GLUCOSE DEVICE Routine 10/25/2023 9:49 AM BUILDING ADMIN POCT GLUCOSE DEVICE Routine 10/25/2023 7:36 AM BUILDING ADMIN XR CHEST 1 VIEW IP Routine 10/25/2023 6:52 AM BUILDING ADMIN APTT Routine 10/25/2023 6:48 AM BUILDING ADMIN POCT GLUCOSE DEVICE Routine 10/25/2023 4:23 AM BUILDING ADMIN EGFR Routine 10/25/2023 12:34 AM BUILDING ADMIN CBC WITHOUT DIFFERENTIAL Routine 10/25/2023 12:34 AM BUILDING ADMIN MAGNESIUM Routine 10/25/2023 12:34 AM BUILDING ADMIN RENAL FUNCTION PANEL Routine 10/25/2023 12:34 AM BUILDING ADMIN APTT Timed 10/25/2023 12:33 AM BUILDING ADMIN PROTIME-INR Timed 10/25/2023 12:33 AM BUILDING ADMIN CONTINUOUS CYCLIC PERITONEAL DIALYSIS (CCPD) Routine 10/25/2023 12:30 AM BUILDING ADMIN POCT GLUCOSE DEVICE Routine 10/24/2023 9:51 PM BUILDING ADMIN APTT STAT 10/24/2023 5:15 PM BUILDING ADMIN POCT GLUCOSE DEVICE Routine 10/24/2023 4:42 PM BUILDING ADMIN POCT GLUCOSE DEVICE Routine 10/24/2023 12:17 PM BUILDING ADMIN POCT GLUCOSE DEVICE Routine 10/24/2023 7:44 AM BUILDING ADMIN XR CHEST 1 VIEW IP Routine 10/24/2023 5:54 AM BUILDING ADMIN EGFR Routine 10/24/2023 1:03 AM BUILDING ADMIN PROTIME-INR Routine 10/24/2023 1:03 AM BUILDING ADMIN CBC WITHOUT DIFFERENTIAL Routine 10/24/2023 1:03 AM BUILDING ADMIN MAGNESIUM Routine 10/24/2023 1:03 AM BUILDING ADMIN RENAL FUNCTION PANEL Routine 10/24/2023 1:03 AM BUILDING ADMIN CONTINUOUS CYCLIC PERITONEAL DIALYSIS (CCPD) Routine 10/24/2023 12:30 AM BUILDING ADMIN POCT GLUCOSE DEVICE Routine 10/23/2023 11:14 PM BUILDING ADMIN POCT GLUCOSE DEVICE Routine 10/23/2023 10:43 PM BUILDING ADMIN PEP THERAPY Routine 10/23/2023 6:00 PM BUILDING ADMIN POCT GLUCOSE DEVICE Routine 10/23/2023 5:12 PM BUILDING ADMIN PEP THERAPY Routine 10/23/2023 1:00 PM BUILDING ADMIN POCT GLUCOSE DEVICE Routine 10/23/2023 12:08 PM BUILDING ADMIN PEP THERAPY Routine 10/23/2023 8:00 AM BUILDING ADMIN POCT GLUCOSE DEVICE Routine 10/23/2023 7:54 AM BUILDING ADMIN XR CHEST 1 VIEW IP Routine 10/23/2023 6:24 AM BUILDING ADMIN EGFR Routine 10/23/2023 1:53 AM BUILDING ADMIN PROTIME-INR Routine 10/23/2023 1:53 AM BUILDING ADMIN CBC WITHOUT DIFFERENTIAL Routine 10/23/2023 1:53 AM BUILDING ADMIN MAGNESIUM Routine 10/23/2023 1:53 AM BUILDING ADMIN RENAL FUNCTION PANEL Routine 10/23/2023 1:53 AM BUILDING ADMIN CONTINUOUS CYCLIC PERITONEAL DIALYSIS (CCPD) Routine 10/23/2023 12:30 AM BUILDING ADMIN POCT GLUCOSE DEVICE Routine 10/22/2023 11:55 PM BUILDING ADMIN PEP THERAPY Routine 10/22/2023 10:00 PM BUILDING ADMIN POCT GLUCOSE DEVICE Routine 10/22/2023 9:12 PM BUILDING ADMIN PEP THERAPY Routine 10/22/2023 6:00 PM BUILDING ADMIN POCT GLUCOSE DEVICE Routine 10/22/2023 5:22 PM BUILDING ADMIN PEP THERAPY Routine 10/22/2023 3:07 PM BUILDING ADMIN PEP THERAPY Routine 10/22/2023 3:07 PM BUILDING ADMIN PEP THERAPY Routine 10/22/2023 3:07 PM BUILDING ADMIN PEP THERAPY Routine 10/22/2023 3:07 PM BUILDING ADMIN POCT GLUCOSE DEVICE Routine 10/22/2023 12:49 PM BUILDING ADMIN POCT GLUCOSE DEVICE Routine 10/22/2023 8:12 AM BUILDING ADMIN XR CHEST 1 VIEW IP Routine 10/22/2023 6:38 AM BUILDING ADMIN EGFR Routine 10/22/2023 12:31 AM BUILDING ADMIN PROTIME-INR Routine 10/22/2023 12:31 AM BUILDING ADMIN CBC WITHOUT DIFFERENTIAL Routine 10/22/2023 12:31 AM BUILDING ADMIN MAGNESIUM Routine 10/22/2023 12:31 AM BUILDING ADMIN RENAL FUNCTION PANEL Routine 10/22/2023 12:31 AM BUILDING ADMIN CONTINUOUS CYCLIC PERITONEAL DIALYSIS (CCPD) Routine 10/22/2023 12:30 AM BUILDING ADMIN POCT GLUCOSE DEVICE Routine 10/21/2023 9:31 PM BUILDING ADMIN POCT GLUCOSE DEVICE Routine 10/21/2023 5:16 PM BUILDING ADMIN POCT GLUCOSE DEVICE Routine 10/21/2023 12:29 PM BUILDING ADMIN POCT GLUCOSE DEVICE Routine 10/21/2023 8:06 AM BUILDING ADMIN XR CHEST 1 VIEW IP Routine 10/21/2023 6:51 AM BUILDING ADMIN ECG 12-LEAD Routine 10/21/2023 4:39 AM BUILDING ADMIN EGFR Routine 10/21/2023 1:40 AM BUILDING ADMIN PROTIME-INR Routine 10/21/2023 1:40 AM BUILDING ADMIN CBC WITHOUT DIFFERENTIAL Routine 10/21/2023 1:40 AM BUILDING ADMIN MAGNESIUM Routine 10/21/2023 1:40 AM BUILDING ADMIN RENAL FUNCTION PANEL Routine 10/21/2023 1:40 AM BUILDING ADMIN CONTINUOUS CYCLIC PERITONEAL DIALYSIS (CCPD) Routine 10/21/2023 12:31 AM BUILDING ADMIN POCT GLUCOSE DEVICE Routine 10/20/2023 9:24 PM BUILDING ADMIN POCT GLUCOSE DEVICE Routine 10/20/2023 5:24 PM BUILDING ADMIN CONTINUOUS CYCLIC PERITONEAL DIALYSIS (CCPD) Routine 10/20/2023 3:51 PM BUILDING ADMIN CRITICAL CARE Routine 10/20/2023 12:45 PM BUILDING ADMIN 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[place] artery of [place] heart with stable angina pectoris ([facility]/HCC) ([facility]) POCT GLUCOSE DEVICE Routine 10/20/2023 11:47 AM BUILDING ADMIN POCT GLUCOSE DEVICE Routine 10/20/2023 10:09 AM BUILDING ADMIN POCT GLUCOSE DEVICE Routine 10/20/2023 9:15 AM BUILDING ADMIN POCT GLUCOSE DEVICE Routine 10/20/2023 7:23 AM BUILDING ADMIN XR CHEST 1 VIEW IP Routine 10/20/2023 6:37 AM BUILDING ADMIN POCT GLUCOSE DEVICE Routine 10/20/2023 6:12 AM BUILDING ADMIN POCT GLUCOSE DEVICE Routine 10/20/2023 3:57 AM BUILDING ADMIN OXYHEMOGLOBIN, CENTRAL VENOUS Timed 10/20/2023 3:22 AM BUILDING ADMIN APTT STAT 10/20/2023 3:22 AM BUILDING ADMIN POCT GLUCOSE DEVICE Routine 10/20/2023 3:21 AM BUILDING ADMIN POCT GLUCOSE DEVICE Routine 10/20/2023 2:10 AM BUILDING ADMIN POCT GLUCOSE DEVICE Routine 10/20/2023 12:57 AM BUILDING ADMIN OXYHEMOGLOBIN, CENTRAL VENOUS Routine 10/20/2023 12:21 AM BUILDING ADMIN EGFR Routine 10/20/2023 12:21 AM BUILDING ADMIN CALCIUM, IONIZED Routine 10/20/2023 12:21 AM BUILDING ADMIN PROTIME-INR Routine 10/20/2023 12:21 AM BUILDING ADMIN CBC WITHOUT DIFFERENTIAL Routine 10/20/2023 12:21 AM BUILDING ADMIN MAGNESIUM Routine 10/20/2023 12:21 AM BUILDING ADMIN RENAL FUNCTION PANEL Routine 10/20/2023 12:21 AM BUILDING ADMIN POCT GLUCOSE DEVICE Routine 10/20/2023 12:20 AM BUILDING ADMIN POCT GLUCOSE DEVICE Routine 10/19/2023 11:03 PM BUILDING ADMIN POCT GLUCOSE DEVICE Routine 10/19/2023 10:01 PM BUILDING ADMIN APTT STAT 10/19/2023 9:47 PM BUILDING ADMIN POCT GLUCOSE DEVICE Routine 10/19/2023 9:15 PM BUILDING ADMIN POCT GLUCOSE DEVICE Routine 10/19/2023 8:12 PM BUILDING ADMIN POCT GLUCOSE DEVICE Routine 10/19/2023 6:13 PM BUILDING ADMIN POCT GLUCOSE DEVICE Routine 10/19/2023 5:24 PM BUILDING ADMIN XR CHEST 1 VIEW ED Urgent/IP Urgent 10/19/2023 4:29 PM BUILDING ADMIN POCT GLUCOSE DEVICE Routine 10/19/2023 4:25 PM BUILDING ADMIN ECG 12-LEAD STAT 10/19/2023 3:21 PM BUILDING ADMIN XR KUB IP Routine 10/19/2023 2:49 PM BUILDING ADMIN APTT STAT 10/19/2023 2:44 PM BUILDING ADMIN LIPASE Routine 10/19/2023 2:44 PM BUILDING ADMIN AMYLASE Routine 10/19/2023 2:44 PM BUILDING ADMIN HEPATIC FUNCTION PANEL Routine 10/19/2023 2:44 PM BUILDING ADMIN POCT GLUCOSE DEVICE Routine 10/19/2023 2:40 PM BUILDING ADMIN POCT GLUCOSE DEVICE Routine 10/19/2023 12:25 PM BUILDING ADMIN POCT GLUCOSE DEVICE Routine 10/19/2023 11:12 AM BUILDING ADMIN POCT GLUCOSE DEVICE Routine 10/19/2023 10:54 AM BUILDING ADMIN POCT GLUCOSE DEVICE Routine 10/19/2023 9:04 AM BUILDING ADMIN OXYHEMOGLOBIN, CENTRAL VENOUS STAT 10/19/2023 8:58 AM BUILDING ADMIN APTT STAT 10/19/2023 8:58 AM BUILDING ADMIN POCT GLUCOSE DEVICE Routine 10/19/2023 7:19 AM BUILDING ADMIN OXYHEMOGLOBIN, CENTRAL VENOUS STAT 10/19/2023 7:09 AM BUILDING ADMIN LACTATE STAT 10/19/2023 7:09 AM BUILDING ADMIN CRITICAL CARE Routine 10/19/2023 6:57 AM BUILDING ADMIN CAD in [place] artery POCT GLUCOSE DEVICE Routine 10/19/2023 6:57 AM BUILDING ADMIN XR CHEST 1 VIEW IP Routine 10/19/2023 6:27 AM BUILDING ADMIN POCT GLUCOSE DEVICE Routine 10/19/2023 6:06 AM BUILDING ADMIN POCT GLUCOSE DEVICE Routine 10/19/2023 5:10 AM BUILDING ADMIN APTT STAT 10/19/2023 4:14 AM BUILDING ADMIN POCT GLUCOSE DEVICE Routine 10/19/2023 4:03 AM BUILDING ADMIN POCT GLUCOSE DEVICE Routine 10/19/2023 2:56 AM BUILDING ADMIN OXYHEMOGLOBIN, CENTRAL VENOUS Routine 10/19/2023 2:11 AM BUILDING ADMIN EGFR Routine 10/19/2023 2:11 AM BUILDING ADMIN CALCIUM, IONIZED Routine 10/19/2023 2:11 AM BUILDING ADMIN PROTIME-INR Routine 10/19/2023 2:11 AM BUILDING ADMIN CBC WITHOUT DIFFERENTIAL Routine 10/19/2023 2:11 AM BUILDING ADMIN MAGNESIUM Routine 10/19/2023 2:11 AM BUILDING ADMIN BLOOD GAS, ARTERIAL Routine 10/19/2023 2:11 AM BUILDING ADMIN RENAL FUNCTION PANEL Routine 10/19/2023 2:11 AM BUILDING ADMIN POCT GLUCOSE DEVICE Routine 10/19/2023 2:07 AM BUILDING ADMIN CONTINUOUS CYCLIC PERITONEAL DIALYSIS (CCPD) Routine 10/19/2023 12:31 AM BUILDING ADMIN POCT GLUCOSE DEVICE Routine 10/19/2023 12:01 AM BUILDING ADMIN POCT GLUCOSE DEVICE Routine 10/18/2023 11:03 PM BUILDING ADMIN POCT GLUCOSE DEVICE Routine 10/18/2023 10:11 PM BUILDING ADMIN APTT STAT 10/18/2023 9:21 PM BUILDING ADMIN POCT GLUCOSE DEVICE Routine 10/18/2023 9:19 PM BUILDING ADMIN POCT GLUCOSE DEVICE Routine 10/18/2023 8:37 PM BUILDING ADMIN BLOOD GAS, ARTERIAL STAT 10/18/2023 8:34 PM BUILDING ADMIN CRITICAL CARE Routine 10/18/2023 6:49 PM BUILDING ADMIN CAD in [place] POCT GLUCOSE DEVICE Routine 10/18/2023 6:38 PM BUILDING ADMIN POCT GLUCOSE DEVICE Routine 10/18/2023 5:45 PM BUILDING ADMIN XR KUB IP Routine 10/18/2023 5:42 PM BUILDING ADMIN POCT GLUCOSE DEVICE Routine 10/18/2023 4:47 PM BUILDING ADMIN APTT Timed 10/18/2023 2:55 PM BUILDING ADMIN POCT GLUCOSE DEVICE Routine 10/18/2023 2:52 PM BUILDING ADMIN POCT GLUCOSE DEVICE Routine 10/18/2023 1:53 PM BUILDING ADMIN POCT GLUCOSE DEVICE Routine 10/18/2023 12:48 PM BUILDING ADMIN POCT GLUCOSE DEVICE Routine 10/18/2023 12:00 PM BUILDING ADMIN POCT GLUCOSE DEVICE Routine 10/18/2023 10:57 AM BUILDING ADMIN POCT GLUCOSE DEVICE Routine 10/18/2023 9:52 AM BUILDING ADMIN POCT GLUCOSE DEVICE Routine 10/18/2023 8:46 AM BUILDING ADMIN POCT GLUCOSE DEVICE Routine 10/18/2023 7:58 AM BUILDING ADMIN CRITICAL CARE Routine 10/18/2023 7:27 AM BUILDING ADMIN CAD in [place] POCT GLUCOSE DEVICE Routine 10/18/2023 7:02 AM BUILDING ADMIN POCT GLUCOSE DEVICE Routine 10/18/2023 6:04 AM BUILDING ADMIN XR CHEST 1 VIEW IP Routine 10/18/2023 5:38 AM BUILDING ADMIN POCT GLUCOSE DEVICE Routine 10/18/2023 5:04 AM BUILDING ADMIN POCT GLUCOSE DEVICE Routine 10/18/2023 4:03 AM BUILDING ADMIN POCT GLUCOSE DEVICE Routine 10/18/2023 3:04 AM BUILDING ADMIN POCT GLUCOSE DEVICE Routine 10/18/2023 1:57 AM BUILDING ADMIN EGFR Routine 10/18/2023 1:54 AM BUILDING ADMIN CALCIUM, IONIZED Routine 10/18/2023 1:54 AM BUILDING ADMIN PROTIME-INR Routine 10/18/2023 1:54 AM BUILDING ADMIN FIBRINOGEN Routine 10/18/2023 1:54 AM BUILDING ADMIN CBC WITHOUT DIFFERENTIAL Routine 10/18/2023 1:54 AM BUILDING ADMIN MAGNESIUM Routine 10/18/2023 1:54 AM BUILDING ADMIN BLOOD GAS, ARTERIAL STAT 10/18/2023 1:54 AM BUILDING ADMIN RENAL FUNCTION PANEL Routine 10/18/2023 1:54 AM BUILDING ADMIN POCT GLUCOSE DEVICE Routine 10/18/2023 12:57 AM BUILDING ADMIN CONTINUOUS CYCLIC PERITONEAL DIALYSIS (CCPD) Routine 10/18/2023 12:31 AM BUILDING ADMIN POCT GLUCOSE DEVICE Routine 10/18/2023 12:04 AM BUILDING ADMIN POCT GLUCOSE DEVICE Routine 10/17/2023 11:00 PM BUILDING ADMIN BLOOD GAS, ARTERIAL STAT 10/17/2023 10:56 PM BUILDING ADMIN LACTATE STAT 10/17/2023 10:55 PM BUILDING ADMIN DIFFERENTIAL AUTO STAT 10/17/2023 10:55 PM BUILDING ADMIN CALCIUM, IONIZED STAT 10/17/2023 10:55 PM BUILDING ADMIN CBC WITH AUTO DIFFERENTIAL STAT 10/17/2023 10:55 PM BUILDING ADMIN POCT GLUCOSE DEVICE Routine 10/17/2023 10:19 PM BUILDING ADMIN POCT GLUCOSE DEVICE Routine 10/17/2023 9:00 PM BUILDING ADMIN POCT GLUCOSE DEVICE Routine 10/17/2023 8:07 PM BUILDING ADMIN POCT GLUCOSE DEVICE Routine 10/17/2023 7:18 PM BUILDING ADMIN TRANSFUSE RED BLOOD CELLS Timed 10/17/2023 7:13 PM BUILDING ADMIN CRITICAL CARE Routine 10/17/2023 6:42 PM BUILDING ADMIN CAD in [place] PREPARE RBC STAT 10/17/2023 6:34 PM BUILDING ADMIN POTASSIUM LEVEL STAT 10/17/2023 6:14 PM BUILDING ADMIN APTT STAT 10/17/2023 6:12 PM BUILDING ADMIN PROTIME-INR STAT 10/17/2023 6:12 PM BUILDING ADMIN FIBRINOGEN STAT 10/17/2023 6:12 PM BUILDING ADMIN CBC WITHOUT DIFFERENTIAL STAT 10/17/2023 6:12 PM BUILDING ADMIN BLOOD GAS, ARTERIAL STAT 10/17/2023 6:12 PM BUILDING ADMIN POCT GLUCOSE DEVICE Routine 10/17/2023 6:11 PM BUILDING ADMIN TRANSFUSE PLASMA Timed 10/17/2023 5:25 PM BUILDING ADMIN PREPARE PLASMA STAT 10/17/2023 5:09 PM BUILDING ADMIN POCT GLUCOSE DEVICE Routine 10/17/2023 4:50 PM BUILDING ADMIN APTT STAT 10/17/2023 4:32 PM BUILDING ADMIN PROTIME-INR STAT 10/17/2023 4:32 PM BUILDING ADMIN FIBRINOGEN STAT 10/17/2023 4:32 PM BUILDING ADMIN CBC WITHOUT DIFFERENTIAL Routine 10/17/2023 4:32 PM BUILDING ADMIN BLOOD GAS, ARTERIAL STAT 10/17/2023 4:32 PM BUILDING ADMIN POCT GLUCOSE DEVICE Routine 10/17/2023 3:51 PM BUILDING ADMIN TRANSFUSE PLASMA Timed 10/17/2023 3:43 PM BUILDING ADMIN TRANSFUSE RED BLOOD CELLS Timed 10/17/2023 3:38 PM BUILDING ADMIN PREPARE PLASMA STAT 10/17/2023 3:32 PM BUILDING ADMIN PREPARE RBC STAT 10/17/2023 3:32 PM BUILDING ADMIN POCT GLUCOSE DEVICE Routine 10/17/2023 2:34 PM BUILDING ADMIN XR CHEST 1 VIEW ED Urgent/IP Urgent 10/17/2023 1:49 PM BUILDING ADMIN CRITICAL CARE Routine 10/17/2023 1:44 PM BUILDING ADMIN LACTATE STAT 10/17/2023 1:27 PM BUILDING ADMIN EGFR STAT 10/17/2023 1:27 PM BUILDING ADMIN CALCIUM, IONIZED STAT 10/17/2023 1:27 PM BUILDING ADMIN APTT STAT 10/17/2023 1:27 PM BUILDING ADMIN PROTIME-INR STAT 10/17/2023 1:27 PM BUILDING ADMIN FIBRINOGEN STAT 10/17/2023 1:27 PM BUILDING ADMIN CBC WITHOUT DIFFERENTIAL STAT 10/17/2023 1:27 PM BUILDING ADMIN PHOSPHORUS STAT 10/17/2023 1:27 PM BUILDING ADMIN MAGNESIUM STAT 10/17/2023 1:27 PM BUILDING ADMIN BLOOD GAS, ARTERIAL STAT 10/17/2023 1:27 PM BUILDING ADMIN BASIC METABOLIC PANEL STAT 10/17/2023 1:27 PM BUILDING ADMIN POCT GLUCOSE DEVICE Routine 10/17/2023 1:25 PM BUILDING ADMIN POCT ACTIVATED CLOTTING TIME, HIGH RANGE Routine 10/17/2023 12:26 PM BUILDING ADMIN POC BLOOD GAS AND CHEMISTRIES, ARTERIAL Routine 10/17/2023 12:26 PM BUILDING ADMIN TRANSFUSE PLATELETS Timed 10/17/2023 12:24 PM BUILDING ADMIN PREPARE RBC STAT 10/17/2023 12:11 PM BUILDING ADMIN TRANSFUSE RED BLOOD CELLS Timed 10/17/2023 12:09 PM BUILDING ADMIN TRANSFUSE CRYOPRECIPITATE (POOLED UNITS) Timed 10/17/2023 12:05 PM BUILDING ADMIN TRANSFUSE CRYOPRECIPITATE (POOLED UNITS) Timed 10/17/2023 12:04 PM BUILDING ADMIN TRANSFUSE PLASMA Timed 10/17/2023 12:03 PM BUILDING ADMIN TRANSFUSE PLASMA Timed 10/17/2023 12:03 PM BUILDING ADMIN POC BLOOD GAS AND CHEMISTRIES, ARTERIAL Routine 10/17/2023 11:51 AM BUILDING ADMIN POCT ACTIVATED CLOTTING TIME, HIGH RANGE Routine 10/17/2023 11:50 AM BUILDING ADMIN POCT ACTIVATED CLOTTING TIME, HIGH RANGE Routine 10/17/2023 11:22 AM BUILDING ADMIN POC BLOOD GAS AND CHEMISTRIES, ARTERIAL Routine 10/17/2023 11:20 AM BUILDING ADMIN POCT ACTIVATED CLOTTING TIME, HIGH RANGE Routine 10/17/2023 11:05 AM BUILDING ADMIN POCT ACTIVATED CLOTTING TIME, HIGH RANGE Routine 10/17/2023 10:53 AM BUILDING ADMIN POCT ACTIVATED CLOTTING TIME, HIGH RANGE Routine 10/17/2023 10:38 AM BUILDING ADMIN POC BLOOD GAS AND CHEMISTRIES, ARTERIAL Routine 10/17/2023 10:38 AM BUILDING ADMIN POCT ACTIVATED CLOTTING TIME, HIGH RANGE Routine 10/17/2023 10:24 AM BUILDING ADMIN POC BLOOD GAS AND CHEMISTRIES, VENOUS Routine 10/17/2023 10:21 AM BUILDING ADMIN POCT ACTIVATED CLOTTING TIME, HIGH RANGE Routine 10/17/2023 10:12 AM BUILDING ADMIN POC BLOOD GAS AND CHEMISTRIES, ARTERIAL Routine 10/17/2023 10:11 AM BUILDING ADMIN POC BLOOD GAS AND CHEMISTRIES, ARTERIAL Routine 10/17/2023 9:47 AM BUILDING ADMIN POCT ACTIVATED CLOTTING TIME, HIGH RANGE Routine 10/17/2023 9:44 AM BUILDING ADMIN PREPARE PLATELETS STAT 10/17/2023 9:12 AM BUILDING ADMIN PREPARE PLASMA STAT 10/17/2023 9:12 AM BUILDING ADMIN PREPARE CRYOPRECIPITATE (POOLED UNITS) STAT 10/17/2023 9:12 AM BUILDING ADMIN POCT ACTIVATED CLOTTING TIME, HIGH RANGE Routine 10/17/2023 8:19 AM BUILDING ADMIN REPLACEMENT AORTIC VALVE 10/17/2023 8:03 AM BUILDING ADMIN Aortic valve stenosis, etiology of cardiac valve disease unspecified Coronary arteriosclerosis in [place] CORONARY ARTERY BYPASS GRAFT 10/17/2023 8:03 AM BUILDING ADMIN Aortic valve stenosis, etiology of cardiac valve disease unspecified Coronary arteriosclerosis in [place] POCT GLUCOSE DEVICE Routine 10/17/2023 7:47 AM BUILDING ADMIN POCT GLUCOSE DEVICE Routine 10/17/2023 5:50 AM BUILDING ADMIN US CAROTIDS DUPLEX BILATERAL IP Routine 10/17/2023 5:10 AM BUILDING ADMIN POCT GLUCOSE DEVICE Routine 10/17/2023 2:29 AM BUILDING ADMIN POCT GLUCOSE DEVICE Routine 10/17/2023 12:51 AM BUILDING ADMIN CONTINUOUS CYCLIC PERITONEAL DIALYSIS (CCPD) Routine 10/17/2023 12:31 AM BUILDING ADMIN DIFFERENTIAL AUTO Routine 10/17/2023 12:29 AM BUILDING ADMIN CBC WITH AUTO DIFFERENTIAL Routine 10/17/2023 12:29 AM BUILDING ADMIN APTT Routine 10/17/2023 12:29 AM BUILDING ADMIN TYPE AND SCREEN STAT 10/16/2023 7:51 PM BUILDING ADMIN POCT GLUCOSE DEVICE Routine 10/16/2023 7:49 PM BUILDING ADMIN POCT GLUCOSE DEVICE Routine 10/16/2023 5:35 PM BUILDING ADMIN TRANSTHORACIC ECHO (TTE) COMPLETE W DOPPLER/CF W CONTRAST Routine 10/16/2023 4:47 PM BUILDING ADMIN APTT Routine 10/16/2023 3:50 PM BUILDING ADMIN LIPID PANEL Routine 10/16/2023 3:44 PM BUILDING ADMIN CONTINUOUS CYCLIC PERITONEAL DIALYSIS (CCPD) Routine 10/16/2023 3:33 PM BUILDING ADMIN HEMOGLOBIN A1C Routine 10/16/2023 3:27 PM BUILDING ADMIN XR CHEST PA LATERAL 2 VIEWS ED Urgent/IP Urgent 10/16/2023 3:12 PM BUILDING ADMIN ECG 12-LEAD Routine 10/16/2023 2:17 PM BUILDING ADMIN PREPARE RBC STAT 10/16/2023 2:04 PM BUILDING ADMIN POCT GLUCOSE DEVICE Routine 10/16/2023 12:22 PM BUILDING ADMIN POCT GLUCOSE DEVICE Routine 10/16/2023 8:11 AM BUILDING ADMIN POCT GLUCOSE DEVICE Routine 10/16/2023 4:48 AM BUILDING ADMIN POCT GLUCOSE DEVICE Routine 10/16/2023 12:37 AM BUILDING ADMIN DIFFERENTIAL AUTO Routine 10/16/2023 12:31 AM BUILDING ADMIN CBC WITH AUTO DIFFERENTIAL Routine 10/16/2023 12:31 AM BUILDING ADMIN APTT Routine 10/16/2023 12:31 AM BUILDING ADMIN B CHECK SAMPLE STAT 10/16/2023 12:27 AM BUILDING ADMIN POCT GLUCOSE DEVICE Routine 10/15/2023 11:20 PM BUILDING ADMIN POCT GLUCOSE DEVICE Routine 10/15/2023 11:01 PM BUILDING ADMIN POCT GLUCOSE DEVICE Routine 10/15/2023 10:45 PM BUILDING ADMIN POCT GLUCOSE DEVICE Routine 10/15/2023 10:26 PM BUILDING ADMIN POCT GLUCOSE DEVICE Routine 10/15/2023 8:12 PM BUILDING ADMIN POCT GLUCOSE DEVICE Routine 10/15/2023 5:10 PM BUILDING ADMIN POCT GLUCOSE DEVICE Routine 10/15/2023 12:13 PM BUILDING ADMIN APTT Routine 10/15/2023 11:[address] CHEST WO CONTRAST IP Routine 10/15/2023 11:00 AM BUILDING ADMIN POCT GLUCOSE DEVICE Routine 10/15/2023 7:56 AM BUILDING ADMIN POCT GLUCOSE DEVICE Routine 10/15/2023 5:34 AM BUILDING ADMIN POCT GLUCOSE DEVICE Routine 10/15/2023 4:35 AM BUILDING ADMIN APTT STAT 10/15/2023 4:27 AM BUILDING ADMIN POCT GLUCOSE DEVICE Routine 10/15/2023 1:30 AM BUILDING ADMIN EGFR Routine 10/15/2023 1:06 AM BUILDING ADMIN DIFFERENTIAL AUTO Routine 10/15/2023 1:06 AM BUILDING ADMIN IRON PROFILE W/ IBC Routine 10/15/2023 1:06 AM BUILDING ADMIN CBC WITH AUTO DIFFERENTIAL Routine 10/15/2023 1:06 AM BUILDING ADMIN APTT Routine 10/15/2023 1:06 AM BUILDING ADMIN FERRITIN Routine 10/15/2023 1:06 AM BUILDING ADMIN RENAL FUNCTION PANEL Routine 10/15/2023 1:06 AM BUILDING ADMIN CONTINUOUS CYCLIC PERITONEAL DIALYSIS (CCPD) Routine 10/15/2023 12:31 AM BUILDING ADMIN APTT Timed 10/14/2023 8:41 PM BUILDING ADMIN POCT GLUCOSE DEVICE Routine 10/14/2023 8:24 PM BUILDING ADMIN POCT GLUCOSE DEVICE Routine 10/14/2023 5:28 PM BUILDING ADMIN CONTINUOUS CYCLIC PERITONEAL DIALYSIS (CCPD) Routine 10/14/2023 3:44 PM BUILDING ADMIN APTT Timed 10/14/2023 2:39 PM BUILDING ADMIN POCT GLUCOSE DEVICE Routine 10/14/2023 12:15 PM BUILDING ADMIN POCT GLUCOSE DEVICE Routine 10/14/2023 11:06 AM BUILDING ADMIN POCT GLUCOSE DEVICE Routine 10/14/2023 8:34 AM BUILDING ADMIN POCT GLUCOSE DEVICE Routine 10/14/2023 5:56 AM BUILDING ADMIN EGFR STAT 10/14/2023 5:53 AM BUILDING ADMIN APTT STAT 10/14/2023 5:53 AM BUILDING ADMIN BASIC METABOLIC PANEL STAT 10/14/2023 5:53 AM BUILDING ADMIN POCT GLUCOSE DEVICE Routine 10/14/2023 3:58 AM BUILDING ADMIN POCT GLUCOSE DEVICE Routine 10/14/2023 3:04 AM BUILDING ADMIN POCT GLUCOSE DEVICE Routine 10/14/2023 2:05 AM BUILDING ADMIN EGFR STAT 10/14/2023 1:04 AM BUILDING ADMIN DIFFERENTIAL AUTO STAT 10/14/2023 1:04 AM BUILDING ADMIN CBC WITH AUTO DIFFERENTIAL STAT 10/14/2023 1:04 AM BUILDING ADMIN APTT STAT 10/14/2023 1:04 AM BUILDING ADMIN PROTIME-INR STAT 10/14/2023 1:04 AM BUILDING ADMIN COMPREHENSIVE METABOLIC PANEL STAT 10/14/2023 1:04 AM BUILDING ADMIN POCT GLUCOSE DEVICE Routine 10/13/2023 11:25 PM BUILDING ADMIN documented in this encounter Results * (ABNORMAL) POCT glucose (11/03/2023 5:16 PM CDT) Glucose, POC 167(H) 70 - 140 mg/dL Comment: For Glucose values <35 mg/dl when Hematocrit is >60 mg/dl,the test may not accurately detect significant hypoglycemia,and testing in the Laboratory should be considered if clinically indicated. Blood 11/03/2023 5:16 PM CDT 11/03/2023 5:16 PM CDT us Jaqueline Valero MD LAB POCT ORDERABLES - ARPIL CE Final Result [facility] [address] [place] [address] * (ABNORMAL) Protime-INR (11/03/2023 11:43 AM CDT) PT 21.9(H) 10.3 - 13.7 sec INR 1.92(H) 0.90 - 1.20 [facility] Comment: Interpretive data Oral anticoagulant therapeutic ranges: Venous thromboembolism prophylaxis or treatment: 2.0-3.0 CARDIOLOGY Standard range: 2.0-3.0 High-intensity range: 2.5-3.5 Refer to indication-specific guidelines for appropriate target ranges for prosthetic heart valve replacement. Current interpretive data was last revised on 2019. Blood 11/03/2023 11:4 3 AM CDT 11/03/2023 12:58 PM CDT us Guerline GRACE LAB BLOOD ORDERABLES Final R esult Performing Organization Address [facility] Co de Phone Number [facility] [address] [facility] [place] [address] * (ABNORMAL) aPTT (11/03/2023 11:43 AM CDT) aPTT 62(H) 28 - 38 sec Comment: Interpretive Data Heparin therapeutic range: 66.0 - 100.0 seconds. Range based on correlation with therapeutic heparin activity range of 0.3 - 0.7 Units/mL. Current interpretive data was last revised on 2023. Blood 11/03/2023 11:4 3 AM CDT 11/03/2023 12:08 PM CDT Jaqueline Valero MD LAB BLOOD ORDERABLES Final Result Performing Organization Address [facility] Co de Phone Number [facility] [address] Department [place], [place] [id number] * (ABNORMAL) POCT glucose (11/03/2023 11:38 AM CDT) Glucose, POC 259(H) 70 - 140 mg/dL Comment: For Glucose values <35 mg/dl when Hematocrit is >60 mg/dl,the test may not accurately detect significant hypoglycemia,and testing in the Laboratory should be considered if clinically indicated. Blood 11/03/2023 11:3 8 AM CDT 11/03/2023 11:38 AM CDT Jaqueline Valero MD LAB POCT ORDERABLES - APRIL CE Final Result Performing Organization Address [facility] Co de Phone Number [facility] [address] [facility] [place], [place] [id number] * (ABNORMAL) POCT glucose (11/03/2023 8:05 AM CDT) Glucose, POC 235(H) 70 - 140 mg/dL Comment: For Glucose values <35 mg/dl when Hematocrit is >60 mg/dl,the test may not accurately detect significant hypoglycemia,and testing in the Laboratory should be considered if clinically indicated. Blood 11/03/2023 8:05 AM CDT 11/03/2023 8:05 AM CDT Jaqueline Valero MD LAB POCT ORDERABLES - APRIL CE Final Result [facility] [address] [place] [address] * eGFR (11/03/2023 4:41 AM CDT) eGFR 7 mL/min/1. 73 m2 Comment: Interpretive Data Reference [...] interpretive data was last reviewed 2021. Blood 11/03/2023 4:41 AM CDT 11/03/2023 4:41 AM CDT Byron Olvera SENIOR CAREGIVER LAB BLOOD ORDERABLES Fi nal Result Performing Organization Address [facility] Co de Phone Number [facility] [address] [facility] [place] [address] * (ABNORMAL) aPTT (11/03/2023 4:41 AM CDT) aPTT 52(H) 28 - 38 sec Comment: Interpretive Data Heparin therapeutic range: 66.0 - 100.0 seconds. Range based on correlation with therapeutic heparin activity range of 0.3 - 0.7 Units/mL. Current interpretive data was last revised on 2023. Blood 11/03/2023 4:41 AM CDT 11/03/2023 4:41 AM CDT Jaqueline Valero MD LAB BLOOD ORDERABLES Final Result Performing Organization Address [facility] Co de Phone Number [facility] [address] [facility] [place] [address] * (ABNORMAL) Protime-INR (11/03/2023 4:41 AM CDT) PT 19.8(H) 10.3 - 13.7 sec INR 1.74(H) 0.90 - 1.20 [facility] Comment: Interpretive data Oral anticoagulant therapeutic ranges: Venous thromboembolism prophylaxis or treatment: 2.0-3.0 CARDIOLOGY Standard range: 2.0-3.0 High-intensity range: 2.5-3.5 Refer to indication-specific guidelines for appropriate target ranges for prosthetic heart valve replacement. Current interpretive data was last revised on 2019. Blood 11/03/2023 4:41 AM CDT 11/03/2023 4:41 AM CDT Byron Olvera NP LAB BLOOD ORDERABLES Fi nal Result Performing Organization Address [facility] Co de Phone Number [facility] [address] [facility] [place] [address] * Magnesium (11/03/2023 4:41 AM CDT) Magnesium 2.4 1.4 - 2.5 mg/dL Blood 11/03/2023 4:41 AM CDT 11/03/2023 4:41 AM CDT Byron Olvera SENIOR CAREGIVER LAB BLOOD ORDERABLES nal Result [facility] [address] [place] [address] * (ABNORMAL) Renal function panel (11/03/2023 4:41 AM CDT) Pathologist [facility] Sodium 132(L) 135 - 145 mmol/L Potassium, pl 3.7 3.3 - 4.9 mmol/L [facility] Chloride 92(L) 97 - 110 mmol/L [facility] CO2 27 22 - 32 mmol/L [facility] Anion gap 13 2 - 15 mmol/L [facility] BUN 79(H) 6 - 25 mg/dL [facility] Creatinine 8.23(H) 0.80 - 1.30 mg/dL [facility] Glucose 252(H) 70 - 199 mg/dL [facility] Comment: Interpretive Data Fasting glucose [...] interpretive data was last revised 2022. Calcium 8.9 8.5 - 10.3 mg/dL [facility] Phosphorus, pl 4.2 2.3 - 4.5 mg/dL [facility] Albumin 2.9(L) 3.5 - 5.0 g/dL [facility] Blood 11/03/2023 4:41 AM CDT 11/03/2023 4:41 AM CDT Byron Olvera NP LAB BLOOD ORDERABLES Fi nal Result Performing Organization Address [facility] Co de Phone Number [facility] [address] [place] [address] * (ABNORMAL) CBC without differential (11/03/2023 4:41 AM CDT) [facility] WBC 4.8 3.8 - 9.9 K/cumm Hgb 7.6(L) 13.0 - 17.5 g/dL [facility] Hct 24.4(L) 38.9 - 50.3 % [facility] Plt 389 150 - 400 K/cumm [facility] MPV 9.2 9.1 - 12.3 fL [facility] RBC 2.61(L) 4.30 - 5.80 M/cumm [facility] MCV 93.5 81.3 - 96.4 fL [facility] MCH 29.1 27.1 - 33.3 pg [facility] MCHC 31.1(L) 32.3 - 35.7 g/dL [facility] RDW CV 14.6 11.1 - 14.9 % [facility] RDW SD 50.1(H) 35.7 - 48.1 fL [facility] NRBC abs 0.00 0.00 - 0.01 K/cumm [facility] Blood 11/03/2023 4:41 AM CDT 11/03/2023 4:41 AM CDT Byron Olvera NP LAB BLOOD ORDERABLES Fi nal Result Performing Organization Address [facility]/ZIP Co de Phone Number [facility] [address] [place], [place] [id number] * aPTT (11/02/2023 8:38 PM CDT) Pathologist [facility] aPTT 38 28 - 38 sec Comment: Interpretive Data Heparin therapeutic range: 66.0 - 100.0 seconds. Range based on correlation with therapeutic heparin activity range of 0.3 - 0.7 Units/mL. Current interpretive data was last revised on 2023. Blood 11/02/2023 8:38 PM CDT 11/02/2023 8:38 PM CDT Nona [facility] LAB BLOOD ORDERABLES Fin al Result Performing Organization Address [facility] Co de Phone Number [facility] [address] [place] [address] * (ABNORMAL) POCT glucose (11/02/2023 8:22 PM CDT) Glucose, POC 170(H) 70 - 140 mg/dL Comment: For Glucose values <35 mg/dl when Hematocrit is >60 mg/dl,the test may not accurately detect significant hypoglycemia,and testing in the Laboratory should be considered if clinically indicated. Blood 11/02/2023 8:22 PM CDT 11/02/2023 8:22 PM CDT Jaqueline Valero MD LAB POCT ORDERABLES - APRIL CE Final Result Performing Organization Address [facility] de Phone Number [facility] [address] [place] [address] * (ABNORMAL) POCT glucose (11/02/2023 5:22 PM CDT) Glucose, POC 176(H) 70 - 140 mg/dL Comment: For Glucose values <35 mg/dl when Hematocrit is >60 mg/dl,the test may not accurately detect significant hypoglycemia,and testing in the Laboratory should be considered if clinically indicated. Blood 11/02/2023 5:22 PM CDT 11/02/2023 5:22 PM CDT Jaqueline Valero MD LAB POCT ORDERABLES - APRIL CE Final Result Performing Organization Address [facility]/ZIP Co de Phone Number [facility] [address] [place] [address] * aPTT (11/02/2023 1:17 PM CDT) aPTT 36 28 - 38 sec Comment: Interpretive Data Heparin therapeutic range: 66.0 - 100.0 seconds. Range based on correlation with therapeutic heparin activity range of 0.3 - 0.7 Units/mL. Current interpretive data was last revised on 2023. Blood 11/02/2023 1:17 PM CDT 11/02/2023 1:33 PM CDT Narrative [facility] - 11/02/2023 1:50 PM CDT Baseline prior to heparin initiation Nona [facility] LAB BLOOD ORDERABLES Fin al Result Performing Organization Address [facility] Co de Phone Number [facility] [address] [place] [address] * (ABNORMAL) POCT glucose (11/02/2023 12:27 PM CDT) Glucose, POC 178(H) 70 - 140 mg/dL Comment: For Glucose values <35 mg/dl when Hematocrit is >60 mg/dl,the test may not accurately detect significant hypoglycemia,and testing in the Laboratory should be considered if clinically indicated. Blood 11/02/2023 12:2 7 PM CDT 11/02/2023 12:27 PM CDT us Jaqueline Valero MD LAB POCT ORDERABLES - APRIL CE Final Result Performing Organization Address [facility] Co de Phone Number [facility] [address] Department [place], [place] [id number] * (ABNORMAL) POCT glucose (11/02/2023 8:15 AM CDT) Glucose, POC 336(H) 70 - 140 mg/dL Comment: For Glucose values <35 mg/dl when Hematocrit is >60 mg/dl,the test may not accurately detect significant hypoglycemia,and testing in the Laboratory should be considered if clinically indicated. Blood 11/02/2023 8:15 AM CDT 11/02/2023 8:15 AM CDT Jaqueline Valero MD LAB POCT ORDERABLES - APRIL CE Final Result [facility] [address] [place] [address] * eGFR (11/02/2023 2:16 AM CDT) eGFR 7 mL/min/1. 73 m2 Comment: Interpretive Data Reference [...] interpretive data was last reviewed 2021. Blood 11/02/2023 2:16 AM CDT 11/02/2023 2:37 AM CDT Byron Olvera SENIOR CAREGIVER LAB BLOOD ORDERABLES Fi nal Result [facility] [address] [facility] [place] [address] * (ABNORMAL) Protime-INR (11/02/2023 2:16 AM CDT) PT 19.1(H) 10.3 - 13.7 sec INR 1.68(H) 0.90 - 1.20 [facility] Comment: Interpretive data Oral anticoagulant therapeutic ranges: Venous thromboembolism prophylaxis or treatment: 2.0-3.0 CARDIOLOGY Standard range: 2.0-3.0 High-intensity range: 2.5-3.5 Refer to indication-specific guidelines for appropriate target ranges for prosthetic heart valve replacement. Current interpretive data was last revised on 2019. Blood 11/02/2023 2:16 AM CDT 11/02/2023 2:37 AM CDT Byron Olvera SENIOR CAREGIVER LAB BLOOD ORDERABLES Fi nal Result [facility] [address] [place], [place] [id number] * Magnesium (11/02/2023 2:16 AM CDT) Pathologist [facility] Magnesium 2.4 1.4 - 2.5 mg/dL Blood 11/02/2023 2:16 AM CDT 11/02/2023 2:37 AM CDT Byron Olvera SENIOR CAREGIVER LAB BLOOD ORDERABLES Fi nal Result [facility] [address] [facility] [place] [address] * (ABNORMAL) Renal function panel (11/02/2023 2:16 AM CDT) Pathologist [facility] Sodium 128(L) 135 - 145 mmol/L Potassium, pl 3.9 3.3 - 4.9 mmol/L [facility] Chloride 89(L) 97 - 110 mmol/L [facility] CO2 25 22 - 32 mmol/L [facility] Anion gap 14 2 - 15 mmol/L [facility] BUN 86(H) 6 - 25 mg/dL [facility] Creatinine 8.74(H) 0.80 - 1.30 mg/dL [facility] Glucose 353(H) 70 - 199 mg/dL [facility] Comment: Interpretive Data Fasting glucose [...] interpretive data was last revised 2022. Calcium 9.3 8.5 - 10.3 mg/dL [facility] Phosphorus, pl 3.7 2.3 - 4.5 mg/dL [facility] Albumin 2.7(L) 3.5 - 5.0 g/dL [facility] Blood 11/02/2023 2:16 AM CDT 11/02/2023 2:37 AM CDT Byron Olvera NP LAB BLOOD ORDERABLES Fi nal Result [facility] [address] [place] [address] * (ABNORMAL) CBC without differential (11/02/2023 2:16 AM CDT) [facility] WBC 5.0 3.8 - 9.9 K/cumm Hgb 7.5(L) 13.0 - 17.5 g/dL [facility] Hct 24.5(L) 38.9 - 50.3 % [facility] Plt 391 150 - 400 K/cumm [facility] MPV 9.3 9.1 - 12.3 fL [facility] RBC 2.60(L) 4.30 - 5.80 M/cumm [facility] MCV 94.2 81.3 - 96.4 fL [facility] MCH 28.8 27.1 - 33.3 pg [facility] MCHC 30.6(L) 32.3 - 35.7 g/dL [facility] RDW CV 14.6 11.1 - 14.9 % [facility] RDW SD 50.4(H) 35.7 - 48.1 fL [facility] NRBC abs 0.00 0.00 - 0.01 K/cumm [facility] Blood 11/02/2023 2:16 AM CDT 11/02/2023 2:37 AM CDT Byron Olvera NP LAB BLOOD ORDERABLES Fi nal Result Performing Organization Address [facility]/ZIP Co de Phone Number [facility] [address] [place], [place] [id number] * (ABNORMAL) POCT glucose (11/02/2023 2:06 AM CDT) Glucose, POC 350(H) 70 - 140 mg/dL Comment: For Glucose values <35 mg/dl when Hematocrit is >60 mg/dl,the test may not accurately detect significant hypoglycemia,and testing in the Laboratory should be considered if clinically indicated. Blood 11/02/2023 2:06 AM CDT 11/02/2023 2:06 AM CDT us Jaqueline Valero MD LAB POCT ORDERABLES - APRIL CE Final Result Performing Organization Address [facility]/ZIP Co de Phone Number [facility] [address] [place], [place] [id number] * (ABNORMAL) POCT glucose (11/01/2023 8:25 PM CDT) Glucose, POC 319(H) 70 - 140 mg/dL Comment: For Glucose values <35 mg/dl when Hematocrit is >60 mg/dl,the test may not accurately detect significant hypoglycemia,and testing in the Laboratory should be considered if clinically indicated. Blood 11/01/2023 8:25 PM CDT 11/01/2023 8:25 PM CDT Jaqueline Valero MD LAB POCT ORDERABLES - APRIL CE Final Result Performing Organization Address [facility] de Phone Number [facility] [address] [facility] [place] [address] * (ABNORMAL) POCT glucose (11/01/2023 5:17 PM CDT) Glucose, POC 163(H) 70 - 140 mg/dL Comment: For Glucose values <35 mg/dl when Hematocrit is >60 mg/dl,the test may not accurately detect significant hypoglycemia,and testing in the Laboratory should be considered if clinically indicated. Blood 11/01/2023 5:17 PM CDT 11/01/2023 5:17 PM CDT Jaqueline Valero MD LAB POCT ORDERABLES - APRIL CE Final Result Performing Organization Address [facility] de Phone Number [facility] [address] [facility] [place] [address] * (ABNORMAL) POCT glucose (11/01/2023 12:01 PM CDT) Glucose, POC 167(H) 70 - 140 mg/dL Comment: For Glucose values <35 mg/dl when Hematocrit is >60 mg/dl,the test may not accurately detect significant hypoglycemia,and testing in the Laboratory should be considered if clinically indicated. Blood 11/01/2023 12:0 1 PM CDT 11/01/2023 12:01 PM CDT Jaqueline Valero MD LAB POCT ORDERABLES - APRIL CE Final Result Performing Organization Address [facility] de Phone Number [facility] [address] Department [place] [address] * (ABNORMAL) POCT glucose (11/01/2023 8:27 AM CDT) Pathologist [facility] Glucose, POC 246(H) 70 - 140 mg/dL Comment: For Glucose values <35 mg/dl when Hematocrit is >60 mg/dl,the test may not accurately detect significant hypoglycemia,and testing in the Laboratory should be considered if clinically indicated. Blood 11/01/2023 8:27 AM CDT 11/01/2023 8:27 AM CDT us Jaqueline Valero MD LAB POCT ORDERABLES - APRIL CE Final Result [facility] [address] [place] [address] * eGFR (11/01/2023 2:09 AM CDT) [facility] eGFR 6 mL/min/1. 73 m2 Comment: Interpretive Data Reference [...] interpretive data was last reviewed 2021. Blood 11/01/2023 2:09 AM CDT 11/01/2023 2:21 AM CDT Byron Olvera NP LAB BLOOD ORDERABLES Fi nal Result Performing Organization Address [facility] Co de Phone Number [facility] [address] [place] [address] * (ABNORMAL) Protime-INR (11/01/2023 2:09 AM CDT) PT 20.6(H) 10.3 - 13.7 sec INR 1.81(H) 0.90 - 1.20 [facility] Comment: Interpretive data Oral anticoagulant therapeutic ranges: Venous thromboembolism prophylaxis or treatment: 2.0-3.0 CARDIOLOGY Standard range: 2.0-3.0 High-intensity range: 2.5-3.5 Refer to indication-specific guidelines for appropriate target ranges for prosthetic heart valve replacement. Current interpretive data was last revised on 2019. Blood 11/01/2023 2:09 AM CDT 11/01/2023 2:21 AM CDT Byron Olvera NP LAB BLOOD ORDERABLES Fi nal Result Performing Organization Address [facility] Co de Phone Number [facility] [address] [place] [place] [address] * Magnesium (11/01/2023 2:09 AM CDT) Magnesium 2.5 1.4 - 2.5 mg/dL Blood 11/01/2023 2:09 AM CDT 11/01/2023 2:21 AM CDT Byron Olvera SENIOR CAREGIVER LAB BLOOD ORDERABLES Fi nal Result Performing Organization Address [facility]/State/ZIP Co de Phone Number [facility] [address] [place] [address] * (ABNORMAL) Renal function panel (11/01/2023 2:09 AM CDT) Sodium 131(L) 135 - 145 mmol/L Potassium, pl 4.0 3.3 - 4.9 mmol/L [facility] Chloride 91(L) 97 - 110 mmol/L [facility] CO2 25 22 - 32 mmol/L [facility] Anion gap 15 2 - 15 mmol/L [facility] BUN 89(H) 6 - 25 mg/dL [facility] Creatinine 8.97(H) 0.80 - 1.30 mg/dL [facility] Glucose 302(H) 70 - 199 mg/dL [facility] Comment: Interpretive Data Fasting glucose [...] interpretive data was last revised 2022. Calcium 9.1 8.5 - 10.3 mg/dL [facility] Phosphorus, pl 4.1 2.3 - 4.5 mg/dL [facility] Albumin 2.9(L) 3.5 - 5.0 g/dL [facility] Blood 11/01/2023 2:09 AM CDT 11/01/2023 2:21 AM CDT Byron Olvera NP LAB BLOOD ORDERABLES Fi nal Result [facility] [address] [place] [address] * (ABNORMAL) CBC without differential (11/01/2023 2:09 AM CDT) [facility] WBC 5.9 3.8 - 9.9 K/cumm Hgb 7.7(L) 13.0 - 17.5 g/dL [facility] Hct 25.0(L) 38.9 - 50.3 % [facility] Plt 381 150 - 400 K/cumm [facility] MPV 9.2 9.1 - 12.3 fL [facility] RBC 2.65(L) 4.30 - 5.80 M/cumm [facility] MCV 94.3 81.3 - 96.4 fL [facility] MCH 29.1 27.1 - 33.3 pg [facility] MCHC 30.8(L) 32.3 - 35.7 g/dL [facility] RDW CV 14.8 11.1 - 14.9 % [facility] RDW SD 50.6(H) 35.7 - 48.1 fL [facility] NRBC abs 0.00 0.00 - 0.01 K/cumm [facility] Blood 11/01/2023 2:09 AM CDT 11/01/2023 2:21 AM CDT us Byron Olvera SENIOR CAREGIVER LAB BLOOD ORDERABLES Fi nal Result Performing Organization Address [facility]/ZIP Co de Phone Number [facility] [address] [place], [place] [id number] * Vancomycin level random (11/01/2023 2:09 AM CDT) [facility] Vancomycin random 17.3 mcg/mL Comment: Interpretive Data No reference ranges have been established for random drug levels. Current Interpretive Data was last revised on 2020. Blood 11/01/2023 2:09 AM CDT 11/01/2023 2:21 AM CDT Guerline Rodriguez PA LAB BLOOD ORDERABLES Final R esult [facility] [address] [place], [place] [phone] * (ABNORMAL) POCT glucose (11/01/2023 2:05 AM CDT) Glucose, POC 259(H) 70 - 140 mg/dL Comment: For Glucose values <35 mg/dl when Hematocrit is >60 mg/dl,the test may not accurately detect significant hypoglycemia,and testing in the Laboratory should be considered if clinically indicated. Blood 11/01/2023 2:05 AM CDT 11/01/2023 2:05 AM CDT Jaqueline Valero MD LAB POCT ORDERABLES - APRIL CE Final Result Performing Organization Address [facility] de Phone Number [facility] [address] [facility] [place] [address] * (ABNORMAL) POCT glucose (10/31/2023 9:21 PM CDT) Glucose, POC 178(H) 70 - 140 mg/dL Comment: For Glucose values <35 mg/dl when Hematocrit is >60 mg/dl,the test may not accurately detect significant hypoglycemia,and testing in the Laboratory should be considered if clinically indicated. Blood 10/31/2023 9:21 PM CDT 10/31/2023 9:21 PM CDT Jaqueline Valero MD LAB POCT ORDERABLES - APRIL CE Final Result Performing Organization Address [facility] de Phone Number [facility] [address] [facility] [place] [address] * (ABNORMAL) POCT glucose (10/31/2023 5:12 PM CDT) Glucose, POC 188(H) 70 - 140 mg/dL Comment: For Glucose values <35 mg/dl when Hematocrit is >60 mg/dl,the test may not accurately detect significant hypoglycemia,and testing in the Laboratory should be considered if clinically indicated. Blood 10/31/2023 5:12 PM CDT 10/31/2023 5:12 PM CDT Jaqueline Valero MD LAB POCT ORDERABLES - APRIL CE Final Result Performing Organization Address [facility] Co de Phone Number [facility] [address] [facility] [place] [address] * (ABNORMAL) POCT glucose (10/31/2023 12:02 PM CDT) Glucose, POC 231(H) 70 - 140 mg/dL Comment: For Glucose values <35 mg/dl when Hematocrit is >60 mg/dl,the test may not accurately detect significant hypoglycemia,and testing in the Laboratory should be considered if clinically indicated. Blood 10/31/2023 12:0 2 PM CDT 10/31/2023 12:02 PM CDT Jaqueline Valero MD LAB POCT ORDERABLES - APRIL CE Final Result Performing Organization Address [facility] Co de Phone Number [facility] [address] [facility] [place] [address] * (ABNORMAL) POCT glucose (10/31/2023 12:01 PM CDT) Glucose, POC 248(H) 70 - 140 mg/dL Comment: For Glucose values <35 mg/dl when Hematocrit is >60 mg/dl,the test may not accurately detect significant hypoglycemia,and testing in the Laboratory should be considered if clinically indicated. Blood 10/31/2023 12:0 1 PM CDT 10/31/2023 12:01 PM CDT Jaqueline Valero MD LAB POCT ORDERABLES - APRIL CE Final Result Performing Organization Address [facility] Co de Phone Number [facility] [address] [place] [address] * (ABNORMAL) POCT glucose (10/31/2023 8:06 AM CDT) [facility] Glucose, POC 338(H) 70 - 140 mg/dL Comment: For Glucose values <35 mg/dl when Hematocrit is >60 mg/dl,the test may not accurately detect significant hypoglycemia,and testing in the Laboratory should be considered if clinically indicated. Blood 10/31/2023 8:06 AM CDT 10/31/2023 8:06 AM CDT us Jaqueline Valero MD LAB POCT ORDERABLES - APRIL CE Final Result [facility] [address] [place] [address] * eGFR (10/31/2023 2:25 AM CDT) [facility] eGFR 6 mL/min/1. 73 m2 Comment: Interpretive Data Reference [...] interpretive data was last reviewed 2021. Blood 10/31/2023 2:25 AM CDT 10/31/2023 2:35 AM CDT Byron Olvera SENIOR CAREGIVER LAB BLOOD ORDERABLES Fi nal Result Performing Organization Address [facility] Co de Phone Number [facility] [address] [facility] [place] [address] * (ABNORMAL) Protime-INR (10/31/2023 2:25 AM CDT) PT 20.6(H) 10.3 - 13.7 sec INR 1.81(H) 0.90 - 1.20 [facility] Comment: Interpretive data Oral anticoagulant therapeutic ranges: Venous thromboembolism prophylaxis or treatment: 2.0-3.0 CARDIOLOGY Standard range: 2.0-3.0 High-intensity range: 2.5-3.5 Refer to indication-specific guidelines for appropriate target ranges for prosthetic heart valve replacement. Current interpretive data was last revised on 2019. Blood 10/31/2023 2:25 AM CDT 10/31/2023 2:34 AM CDT Byron Olvera SENIOR CAREGIVER LAB BLOOD ORDERABLES Fi nal Result Performing Organization Address [facility] Co de Phone Number [facility] [address] [facility] [place] [address] * Magnesium (10/31/2023 2:25 AM CDT) Pathologist [facility] Magnesium 2.5 1.4 - 2.5 mg/dL Blood 10/31/2023 2:25 AM CDT 10/31/2023 2:35 AM CDT Byron Olvera SENIOR CAREGIVER LAB BLOOD ORDERABLES Fi nal Result Performing Organization Address [facility] Co de Phone Number [facility] [address] [place] [address] * (ABNORMAL) Renal function panel (10/31/2023 2:25 AM CDT) [facility] Sodium 131(L) 135 - 145 mmol/L Potassium, pl 4.0 3.3 - 4.9 mmol/L [facility] Chloride 91(L) 97 - 110 mmol/L [facility] CO2 24 22 - 32 mmol/L [facility] Anion gap 16(H) 2 - 15 mmol/L [facility] BUN 90(H) 6 - 25 mg/dL [facility] Creatinine 9.34(H) 0.80 - 1.30 mg/dL [facility] Glucose 275(H) 70 - 199 mg/dL [facility] Comment: Interpretive Data Fasting glucose [...] interpretive data was last revised 2022. Calcium 9.5 8.5 - 10.3 mg/dL [facility] Phosphorus, pl 4.8(H) 2.3 - 4.5 mg/dL [facility] Albumin 2.7(L) 3.5 - 5.0 g/dL [facility] Blood 10/31/2023 2:25 AM CDT 10/31/2023 2:35 AM CDT Byron Olvera NP LAB BLOOD ORDERABLES Fi nal Result [facility] [address] [place] [address] * (ABNORMAL) CBC without differential (10/31/2023 2:25 AM CDT) [facility] WBC 6.6 3.8 - 9.9 K/cumm Hgb 7.9(L) 13.0 - 17.5 g/dL [facility] Hct 25.5(L) 38.9 - 50.3 % [facility] Plt 366 150 - 400 K/cumm [facility] MPV 9.3 9.1 - 12.3 fL [facility] RBC 2.70(L) 4.30 - 5.80 M/cumm [facility] MCV 94.4 81.3 - 96.4 fL [facility] MCH 29.3 27.1 - 33.3 pg [facility] MCHC 31.0(L) 32.3 - 35.7 g/dL [facility] RDW CV 15.1(H) 11.1 - 14.9 % [facility] RDW SD 52.3(H) 35.7 - 48.1 fL [facility] NRBC abs 0.00 0.00 - 0.01 K/cumm [facility] Blood 10/31/2023 2:25 AM CDT 10/31/2023 2:34 AM CDT us Byron Olvera NP LAB BLOOD ORDERABLES Fi nal Result Performing Organization Address [facility]/ZIP Co de Phone Number [facility] [address] [place] [address] * (ABNORMAL) POCT glucose (10/30/2023 9:39 PM CDT) [facility] Glucose, POC 238(H) 70 - 140 mg/dL Comment: For Glucose values <35 mg/dl when Hematocrit is >60 mg/dl,the test may not accurately detect significant hypoglycemia,and testing in the Laboratory should be considered if clinically indicated. Blood 10/30/2023 9:39 PM CDT 10/30/2023 9:39 PM CDT Jaqueline Valero MD LAB POCT ORDERABLES - APRIL CE Final Result [facility] [address] [place] [address] * (ABNORMAL) POCT glucose (10/30/2023 5:31 PM CDT) Glucose, POC 249(H) 70 - 140 mg/dL Comment: For Glucose values <35 mg/dl when Hematocrit is >60 mg/dl,the test may not accurately detect significant hypoglycemia,and testing in the Laboratory should be considered if clinically indicated. Blood 10/30/2023 5:31 PM CDT 10/30/2023 5:31 PM CDT Jaqueline Valero MD LAB POCT ORDERABLES - APRIL CE Final Result Performing Organization Address [facility] de Phone Number [facility] [address] [facility] [place] [address] * (ABNORMAL) POCT glucose (10/30/2023 12:17 PM CDT) Glucose, POC 230(H) 70 - 140 mg/dL Comment: For Glucose values <35 mg/dl when Hematocrit is >60 mg/dl,the test may not accurately detect significant hypoglycemia,and testing in the Laboratory should be considered if clinically indicated. Blood 10/30/2023 12:1 7 PM CDT 10/30/2023 12:17 PM CDT Result [facility] Jaqueline Valero MD LAB POCT ORDERABLES - APRIL CE Final Result Performing Organization Address [facility] Co de Phone Number [facility] [address] [facility] [place] [address] * (ABNORMAL) POCT glucose (10/30/2023 6:20 AM CDT) Glucose, POC 295(H) 70 - 140 mg/dL Comment: For Glucose values <35 mg/dl when Hematocrit is >60 mg/dl,the test may not accurately detect significant hypoglycemia,and testing in the Laboratory should be considered if clinically indicated. Blood 10/30/2023 6:20 AM CDT 10/30/2023 6:20 AM CDT Jaqueline Valero MD LAB POCT ORDERABLES - APRIL CE Final Result Performing Organization Address [facility]/ZIP Co de Phone Number [facility] [address] [place], [place] [id number] * eGFR (10/30/2023 4:18 AM CDT) eGFR 6 mL/min/1. 73 m2 Comment: Interpretive Data Reference [...] interpretive data was last reviewed 2021. Blood 10/30/2023 4:18 AM CDT 10/30/2023 4:45 AM CDT us Byron Olvera SENIOR CAREGIVER LAB BLOOD ORDERABLES Fi nal Result [facility] [address] [place], [place] [id number] * (ABNORMAL) Protime-INR (10/30/2023 4:18 AM CDT) [facility] PT 22.8(H) 10.3 - 13.7 sec INR 2.00(H) 0.90 - 1.20 [facility] Comment: Interpretive data Oral anticoagulant therapeutic ranges: Venous thromboembolism prophylaxis or treatment: 2.0-3.0 CARDIOLOGY Standard range: 2.0-3.0 High-intensity range: 2.5-3.5 Refer to indication-specific guidelines for appropriate target ranges for prosthetic heart valve replacement. Current interpretive data was last revised on 2019. Blood 10/30/2023 4:18 AM CDT 10/30/2023 4:46 AM CDT Byron Olvera SENIOR CAREGIVER LAB BLOOD ORDERABLES Fi nal Result Performing Organization Address [facility] Co de Phone Number [facility] [address] [facility] [place] [address] * Magnesium (10/30/2023 4:18 AM CDT) [facility] Magnesium 2.4 1.4 - 2.5 mg/dL Blood 10/30/2023 4:18 AM CDT 10/30/2023 4:45 AM CDT Byron Olvera NP LAB BLOOD ORDERABLES Fi nal Result Performing Organization Address [facility] Co de Phone Number [facility] [address] [facility] [place] [address] * (ABNORMAL) Renal function panel (10/30/2023 4:18 AM CDT) [facility] Sodium 132(L) 135 - 145 mmol/L Potassium, pl 4.0 3.3 - 4.9 mmol/L [facility] Chloride 89(L) 97 - 110 mmol/L [facility] CO2 25 22 - 32 mmol/L [facility] Anion gap 18(H) 2 - 15 mmol/L [facility] BUN 93(H) 6 - 25 mg/dL [facility] Creatinine 9.55(H) 0.80 - 1.30 mg/dL [facility] Glucose 292(H) 70 - 199 mg/dL [facility] Comment: Interpretive Data Fasting glucose [...] interpretive data was last revised 2022. Calcium 9.3 8.5 - 10.3 mg/dL [facility] Phosphorus, pl 5.4(H) 2.3 - 4.5 mg/dL [facility] Albumin 2.7(L) 3.5 - 5.0 g/dL [facility] Blood 10/30/2023 4:18 AM CDT 10/30/2023 4:45 AM CDT us Byron Olvera NP LAB BLOOD ORDERABLES nal Result [facility] [address] [place] [address] * (ABNORMAL) CBC without differential (10/30/2023 4:18 AM CDT) WBC 6.5 3.8 - 9.9 K/cumm Hgb 7.6(L) 13.0 - 17.5 g/dL [facility] Hct 24.3(L) 38.9 - 50.3 % [facility] Plt 317 150 - 400 K/cumm [facility] MPV 9.8 9.1 - 12.3 fL [facility] RBC 2.59(L) 4.30 - 5.80 M/cumm [facility] MCV 93.8 81.3 - 96.4 fL [facility] MCH 29.3 27.1 - 33.3 pg [facility] MCHC 31.3(L) 32.3 - 35.7 g/dL [facility] RDW CV 15.1(H) 11.1 - 14.9 % [facility] RDW SD 52.2(H) 35.7 - 48.1 fL [facility] NRBC abs 0.00 0.00 - 0.01 K/cumm [facility] Blood 10/30/2023 4:18 AM CDT 10/30/2023 4:45 AM CDT us Byron Olvera SENIOR CAREGIVER LAB BLOOD ORDERABLES Fi nal Result Performing Organization Address [facility]/ZIP Co de Phone Number [facility] [address] [place], [place] [id number] * (ABNORMAL) POCT glucose (10/29/2023 9:59 PM CDT) Glucose, POC 258(H) 70 - 140 mg/dL Comment: For Glucose values <35 mg/dl when Hematocrit is >60 mg/dl,the test may not accurately detect significant hypoglycemia,and testing in the Laboratory should be considered if clinically indicated. Blood 10/29/2023 9:59 PM CDT 10/29/2023 9:59 PM CDT us Jaqueline Valero MD LAB POCT ORDERABLES - APRIL CE Final Result Performing Organization Address City/[facility]/ZIP Co de Phone Number [facility] [address] [place] [place] [address] * (ABNORMAL) POCT glucose (10/29/2023 5:41 PM CDT) Glucose, POC 315(H) 70 - 140 mg/dL Comment: For Glucose values <35 mg/dl when Hematocrit is >60 mg/dl,the test may not accurately detect significant hypoglycemia,and testing in the Laboratory should be considered if clinically indicated. Blood 10/29/2023 5:41 PM CDT 10/29/2023 5:41 PM CDT Jaqueline Valero MD LAB POCT ORDERABLES - APRIL CE Final Result [facility] [address] [place] [address] * US Vein Duplex Lower Extremity Bilateral Complete (10/29/2023 2:40 PM CDT) Anatomical Region Laterality Modality Vascular Bilateral Ultrasound 10/30/2023 6:21 PM CDT Impressions 10/30/2023 6:21 PM CDT 1. Poor quality image because of edema in the calf. 2. ??No evidence of DVT in the imaged veins of the lower extremities bilaterally. Electronically signed by: Daniel Mitchell M.D. Narrative 10/30/2023 6:21 PM CDT Lower Extremity Vein Duplex Bilateral DATE: 10/29/2023 10:00 AM EXAM: ??Venous duplex imaging of bilateral lower extremities. INDICATION: Pain and swelling. COMPARISON: None available Bilateral common femoral vein, femoral vein, popliteal vein, peroneal veins and posterior tibial veins were all assessed for compressibility and patency. FINDINGS: Right leg: The image quality is poor secondary to edema. ??The calf veins cannot be well seen. ??The veins are compressible throughout. There is phasic flow that augments normally. ??There is no reflux. There is no lymphadenopathy or cyst formation. ??Duplex images demonstrate no evidence of filling defects in the major deep veins of the right lower extremity. Left leg: The image quality is poor secondary to edema. ??The calf veins cannot be well seen. ??The veins are compressible throughout. There is phasic flow that augments normally. ??There is no reflux. There is no lymphadenopathy or cyst formation. ??Duplex images demonstrate no evidence of filling defects in the major deep veins of the left lower extremity. ?? Procedure Note Daniel Mitchell MD - 10/30/2023 Lower Extremity Vein Duplex Bilateral DATE: 10/29/2023 10:00 AM EXAM: Venous duplex imaging of bilateral lower extremities. INDICATION: Pain and swelling. COMPARISON: None available Bilateral common femoral vein, femoral vein, popliteal vein, peroneal veins and posterior tibial veins were all assessed for compressibility and patency. FINDINGS: Right leg: The image quality is poor secondary to edema. The calf veins cannot be well seen. The veins are compressible throughout. There is phasic flow that augments normally. There is no reflux. There is no lymphadenopathy or cyst formation. Duplex images demonstrate no evidence of filling defects in the major deep veins of the right lower extremity. Left leg: The image quality is poor secondary to edema. The calf veins cannot be well seen. The veins are compressible throughout. There is phasic flow that augments normally. There is no reflux. There is no lymphadenopathy or cyst formation. Duplex images demonstrate no evidence of filling defects in the major deep veins of the left lower extremity. IMPRESSION: 1. Poor quality image because of edema in the calf. 2. No evidence of DVT in the imaged veins of the lower extremities bilaterally. Electronically signed by: Daniel Mitchell M.D. Nona GRACE IMG US PROCEDURES Final Result * (ABNORMAL) POCT glucose (10/29/2023 12:33 PM CDT) Glucose, POC 275(H) 70 - 140 mg/dL Comment: For Glucose values <35 mg/dl when Hematocrit is >60 mg/dl,the test may not accurately detect significant hypoglycemia,and testing in the Laboratory should be considered if clinically indicated. Blood 10/29/2023 12:3 3 PM CDT 10/29/2023 12:33 PM CDT Jaqueline Valero MD LAB POCT ORDERABLES - APRIL CE Final Result [facility] [address] [place] [address] * (ABNORMAL) POCT glucose (10/29/2023 8:16 AM CDT) Glucose, POC 279(H) 70 - 140 mg/dL Comment: For Glucose values <35 mg/dl when Hematocrit is >60 mg/dl,the test may not accurately detect significant hypoglycemia,and testing in the Laboratory should be considered if clinically indicated. Blood 10/29/2023 8:16 AM CDT 10/29/2023 8:16 AM CDT us Jaqueline Valero MD LAB POCT ORDERABLES - APRIL CE Final Result Performing Organization Address [facility] Co de Phone Number [facility] [address] [place] [address] * eGFR (10/29/2023 4:04 AM CDT) Pathologist [facility] eGFR 6 mL/min/1. 73 m2 Comment: Interpretive Data Reference [...] interpretive data was last reviewed 2021. Blood 10/29/2023 4:04 AM CDT 10/29/2023 4:10 AM CDT us Byron Olvera NP LAB BLOOD ORDERABLES Fi nal Result Performing Organization Address City/[facility]/ZIP Co de Phone Number [facility] [address] [place] [address] * (ABNORMAL) Protime-INR (10/29/2023 4:04 AM CDT) [facility] PT 26.9(H) 10.3 - 13.7 sec INR 2.36(H) 0.90 - 1.20 [facility] Comment: Interpretive data Oral anticoagulant therapeutic ranges: Venous thromboembolism prophylaxis or treatment: 2.0-3.0 CARDIOLOGY Standard range: 2.0-3.0 High-intensity range: 2.5-3.5 Refer to indication-specific guidelines for appropriate target ranges for prosthetic heart valve replacement. Current interpretive data was last revised on 2019. Blood 10/29/2023 4:04 AM CDT 10/29/2023 4:11 AM CDT Byron Olvera NP LAB BLOOD ORDERABLES Fi nal Result Performing Organization Address [facility] Co de Phone Number [facility] [address] [facility] [place] [address] * Magnesium (10/29/2023 4:04 AM CDT) [facility] Magnesium 2.4 1.4 - 2.5 mg/dL Blood 10/29/2023 4:04 AM CDT 10/29/2023 4:10 AM CDT Byron Olvera NP LAB BLOOD ORDERABLES Fi nal Result Performing Organization Address [facility] Co de Phone Number [facility] [address] [facility] [place] [address] * (ABNORMAL) Renal function panel (10/29/2023 4:04 AM CDT) [facility] Sodium 129(L) 135 - 145 mmol/L Potassium, pl 4.1 3.3 - 4.9 mmol/L [facility] Chloride 87(L) 97 - 110 mmol/L [facility] CO2 23 22 - 32 mmol/L [facility] Anion gap 19(H) 2 - 15 mmol/L [facility] BUN 85(H) 6 - 25 mg/dL [facility] Creatinine 9.66(H) 0.80 - 1.30 mg/dL [facility] Glucose 297(H) 70 - 199 mg/dL [facility] Comment: Interpretive Data Fasting glucose [...] interpretive data was last revised 2022. Calcium 9.5 8.5 - 10.3 mg/dL [facility] Phosphorus, pl 5.8(H) 2.3 - 4.5 mg/dL [facility] Albumin 2.9(L) 3.5 - 5.0 g/dL [facility] Blood 10/29/2023 4:04 AM CDT 10/29/2023 4:10 AM CDT us Byron Olvera NP LAB BLOOD ORDERABLES Fi nal Result [facility] [address] [place] [address] * (ABNORMAL) CBC without differential (10/29/2023 4:04 AM CDT) WBC 7.0 3.8 - 9.9 K/cumm Hgb 7.9(L) 13.0 - 17.5 g/dL [facility] Hct 25.2(L) 38.9 - 50.3 % [facility] Plt 291 150 - 400 K/cumm [facility] MPV 10.0 9.1 - 12.3 fL [facility] RBC 2.70(L) 4.30 - 5.80 M/cumm [facility] MCV 93.3 81.3 - 96.4 fL [facility] MCH 29.3 27.1 - 33.3 pg [facility] MCHC 31.3(L) 32.3 - 35.7 g/dL [facility] RDW CV 15.4(H) 11.1 - 14.9 % [facility] RDW SD 52.0(H) 35.7 - 48.1 fL [facility] NRBC abs 0.00 0.00 - 0.01 K/cumm [facility] Blood 10/29/2023 4:04 AM CDT 10/29/2023 4:11 AM CDT Byron Olvera NP LAB BLOOD ORDERABLES Fi nal Result Performing Organization Address [facility] Co de Phone Number [facility] [address] [place] [place] [address] * (ABNORMAL) POCT glucose (10/28/2023 8:22 PM BUILDING ADMIN) Glucose, POC 195(H) 70 - 140 mg/dL Comment: For Glucose values <35 mg/dl when Hematocrit is >60 mg/dl,the test may not accurately detect significant hypoglycemia,and testing in the Laboratory should be considered if clinically indicated. Blood 10/28/2023 8:22 PM BUILDING ADMIN 10/28/2023 8:22 PM BUILDING ADMIN Jaqueline Valero MD LAB POCT ORDERABLES - APRIL CE Final Result Performing Organization Address City/[facility]/ZIP Co de Phone Number [facility] [address] [place], [place] [id number] * (ABNORMAL) POCT glucose (10/28/2023 5:24 PM BUILDING ADMIN) Glucose, POC 222(H) 70 - 140 mg/dL Comment: For Glucose values <35 mg/dl when Hematocrit is >60 mg/dl,the test may not accurately detect significant hypoglycemia,and testing in the Laboratory should be considered if clinically indicated. Blood 10/28/2023 5:24 PM BUILDING ADMIN 10/28/2023 5:24 PM BUILDING ADMIN Jaqueline Valero MD LAB POCT ORDERABLES - APRIL CE Final Result Performing Organization Address [facility] Co de Phone Number [facility] [address] [facility] [place] [address] * (ABNORMAL) POCT glucose (10/28/2023 12:45 PM BUILDING ADMIN) Glucose, POC 201(H) 70 - 140 mg/dL Comment: For Glucose values <35 mg/dl when Hematocrit is >60 mg/dl,the test may not accurately detect significant hypoglycemia,and testing in the Laboratory should be considered if clinically indicated. Blood 10/28/2023 12:4 5 PM BUILDING ADMIN 10/28/2023 12:45 PM BUILDING ADMIN Jaqueline Valero MD LAB POCT ORDERABLES - APRIL CE Final Result Performing Organization Address [facility] de Phone Number [facility] [address] [facility] [place] [address] * POCT glucose (10/28/2023 8:04 AM BUILDING ADMIN) Glucose, POC 101 70 - 140 mg/dL Comment: For Glucose values <35 mg/dl when Hematocrit is >60 mg/dl,the test may not accurately detect significant hypoglycemia,and testing in the Laboratory should be considered if clinically indicated. Blood 10/28/2023 8:04 AM BUILDING ADMIN 10/28/2023 8:04 AM BUILDING ADMIN Jaqueline Valero MD LAB POCT ORDERABLES - APRIL CE Final Result Performing Organization Address [facility] Co de Phone Number [facility] [address] [facility] [place] [address] * XR Chest 1 View - Portable - in AM (10/28/2023 6:00 AM BUILDING ADMIN) Anatomical Region Laterality Modality Body, Chest N/A Computed Radiogr aphy 10/28/2023 8:40 AM BUILDING ADMIN Impressions 10/28/2023 8:40 AM BUILDING ADMIN Comparison made to radiograph 10/27/2023. Right internal jugular approach central venous catheter tip overlying the superior vena cava. ??Median sternotomy wires and plates in similar alignment. Likely small bilateral pleural effusions with fluid along the right minor fissure. ??There is mild bibasilar atelectasis. ??No pneumothorax. ??Cardiomediastinal silhouette is stably enlarged. Electronically signed by: Trace Barrow M.D. Narrative 10/28/2023 8:40 AM BUILDING ADMIN EXAMINATION: XR CHEST 1 VIEW Procedure Note Trace Barrow MD - 10/28/2023 EXAMINATION: XR CHEST 1 VIEW IMPRESSION: Comparison made to radiograph 10/27/2023. Right internal jugular approach central venous catheter tip overlying the superior vena cava. Median sternotomy wires and plates in similar alignment. Likely small bilateral pleural effusions with fluid along the right minor fissure. There is mild bibasilar atelectasis. No pneumothorax. Cardiomediastinal silhouette is stably enlarged. Electronically signed by: Trace Barrow M.D. Byron Olvera SENIOR CAREGIVER IMG XR PROCEDURES Final Result * eGFR (10/28/2023 12:34 AM BUILDING ADMIN) eGFR 6 mL/min/1. 73 m2 Comment: Interpretive Data Reference [...] interpretive data was last reviewed 2021. Blood 10/28/2023 12:3 4 AM BUILDING ADMIN 10/28/2023 1:02 AM BUILDING ADMIN us yBron Olvera NP LAB BLOOD ORDERABLES Fi nal Result Performing Organization Address [facility] Co de Phone Number [facility] [address] Department [place], [place] [id number] * (ABNORMAL) aPTT (10/28/2023 12:34 AM BUILDING ADMIN) aPTT 102(H) 28 - 38 sec Comment: Interpretive Data Heparin therapeutic range: 66.0 - 100.0 seconds. Range based on correlation with therapeutic heparin activity range of 0.3 - 0.7 Units/mL. Current interpretive data was last revised on 2023. Blood 10/28/2023 12:3 4 AM BUILDING ADMIN 10/28/2023 1:02 AM BUILDING ADMIN Narrative [facility] - 10/28/2023 1:15 AM BUILDING ADMIN While on heparin Jaqueline Valero MD LAB BLOOD ORDERABLES Final Result Performing Organization Address [facility] Co de Phone Number [facility] [address] Department [place], [place] [id number] * (ABNORMAL) Protime-INR (10/28/2023 12:34 AM BUILDING ADMIN) PT 30.1(H) 10.3 - 13.7 sec INR 2.64(H) 0.90 - 1.20 [facility] Comment: Interpretive data Oral anticoagulant therapeutic ranges: Venous thromboembolism prophylaxis or treatment: 2.0-3.0 CARDIOLOGY Standard range: 2.0-3.0 High-intensity range: 2.5-3.5 Refer to indication-specific guidelines for appropriate target ranges for prosthetic heart valve replacement. Current interpretive data was last revised on 2019. Blood 10/28/2023 12:3 4 AM BUILDING ADMIN 10/28/2023 1:02 AM BUILDING ADMIN Byron Olvera NP LAB BLOOD ORDERABLES Fi nal Result Performing Organization Address City/[facility] Co de Phone Number [facility] [address] [facility] [place] [address] * Magnesium (10/28/2023 12:34 AM BUILDING ADMIN) [facility] Magnesium 2.3 1.4 - 2.5 mg/dL Blood 10/28/2023 12:3 4 AM BUILDING ADMIN 10/28/2023 1:02 AM BUILDING ADMIN Byron Olvera NP LAB BLOOD ORDERABLES Fi nal Result Performing Organization Address [facility] Co de Phone Number [facility] [address] [facility] [place] [address] * (ABNORMAL) Renal function panel (10/28/2023 12:34 AM BUILDING ADMIN) [facility] Sodium 128(L) 135 - 145 mmol/L Potassium, pl 4.4 3.3 - 4.9 mmol/L [facility] Chloride 87(L) 97 - 110 mmol/L [facility] CO2 22 22 - 32 mmol/L [facility] Anion gap 19(H) 2 - 15 mmol/L [facility] BUN 90(H) 6 - 25 mg/dL [facility] Creatinine 9.98(H) 0.80 - 1.30 mg/dL [facility] Glucose 270(H) 70 - 199 mg/dL [facility] Comment: Interpretive Data Fasting glucose [...] interpretive data was last revised 2022. Calcium 8.9 8.5 - 10.3 mg/dL [facility] Phosphorus, pl 6.3(H) 2.3 - 4.5 mg/dL [facility] Albumin 2.9(L) 3.5 - 5.0 g/dL [facility] Blood 10/28/2023 12:3 4 AM BUILDING ADMIN 10/28/2023 1:02 AM BUILDING ADMIN us Byron Olvera NP LAB BLOOD ORDERABLES Fi nal Result [facility] [address] [place] [address] * (ABNORMAL) CBC without differential (10/28/2023 12:34 AM BUILDING ADMIN) WBC 7.4 3.8 - 9.9 K/cumm Hgb 7.4(L) 13.0 - 17.5 g/dL [facility] Hct 24.1(L) 38.9 - 50.3 % [facility] Plt 244 150 - 400 K/cumm [facility] MPV 10.5 9.1 - 12.3 fL [facility] RBC 2.55(L) 4.30 - 5.80 M/cumm [facility] MCV 94.5 81.3 - 96.4 fL [facility] MCH 29.0 27.1 - 33.3 pg [facility] MCHC 30.7(L) 32.3 - 35.7 g/dL [facility] RDW CV 15.6(H) 11.1 - 14.9 % [facility] RDW SD 53.4(H) 35.7 - 48.1 fL [facility] NRBC abs 0.00 0.00 - 0.01 K/cumm [facility] Blood 10/28/2023 12:3 4 AM BUILDING ADMIN 10/28/2023 1:03 AM BUILDING ADMIN Byron Olvera SENIOR CAREGIVER LAB BLOOD ORDERABLES Fi nal Result Performing Organization Address [facility] Co de Phone Number [facility] [address] [place] [address] * (ABNORMAL) POCT glucose (10/27/2023 10:01 PM BUILDING ADMIN) Glucose, POC 312(H) 70 - 140 mg/dL Comment: For Glucose values <35 mg/dl when Hematocrit is >60 mg/dl,the test may not accurately detect significant hypoglycemia,and testing in the Laboratory should be considered if clinically indicated. Blood 10/27/2023 10:0 1 PM BUILDING ADMIN 10/27/2023 10:01 PM BUILDING ADMIN Jaqueline Valero MD LAB POCT ORDERABLES - APRIL CE Final Result Performing Organization Address [facility] de Phone Number [facility] [address] [place] [address] * POCT glucose (10/27/2023 5:48 PM BUILDING ADMIN) Glucose, POC 108 70 - 140 mg/dL Comment: For Glucose values <35 mg/dl when Hematocrit is >60 mg/dl,the test may not accurately detect significant hypoglycemia,and testing in the Laboratory should be considered if clinically indicated. Blood 10/27/2023 5:48 PM BUILDING ADMIN 10/27/2023 5:48 PM BUILDING ADMIN Jaqueline Valero MD LAB POCT ORDERABLES - APRIL CE Final Result Performing Organization Address [facility] de Phone Number [facility] [address] [place] [address] * (ABNORMAL) POCT glucose (10/27/2023 11:54 AM BUILDING ADMIN) Glucose, POC 232(H) 70 - 140 mg/dL Comment: For Glucose values <35 mg/dl when Hematocrit is >60 mg/dl,the test may not accurately detect significant hypoglycemia,and testing in the Laboratory should be considered if clinically indicated. Blood 10/27/2023 11:5 4 AM BUILDING ADMIN 10/27/2023 11:54 AM BUILDING ADMIN Jaqueline Valero MD LAB POCT ORDERABLES - APRIL CE Final Result Performing Organization Address [facility] de Phone Number [facility] [address] [facility] [place] [address] * (ABNORMAL) T4, free (10/27/2023 11:02 AM BUILDING ADMIN) Free T4 0.68(L) 0.90 - 1.70 ng/dL Blood 10/27/2023 11:0 2 AM BUILDING ADMIN 10/27/2023 11:14 AM BUILDING ADMIN us Fernandez Carranza MD LAB BLOOD ORDERABLES Final Resu lt Performing Organization Address [facility] de Phone Number [facility] [address] [place] [address] * (ABNORMAL) POCT glucose (10/27/2023 8:28 AM BUILDING ADMIN) Glucose, POC 255(H) 70 - 140 mg/dL Comment: For Glucose values <35 mg/dl when Hematocrit is >60 mg/dl,the test may not accurately detect significant hypoglycemia,and testing in the Laboratory should be considered if clinically indicated. Blood 10/27/2023 8:28 AM BUILDING ADMIN 10/27/2023 8:28 AM BUILDING ADMIN us Jaqueline Valero MD LAB POCT ORDERABLES - APRIL CE Final Result Performing Organization Address City/[facility]/ZIP Co de Phone Number [facility] [address] [place] [address] * XR Chest 1 View - Portable - in AM (10/27/2023 6:14 AM BUILDING ADMIN) Anatomical Region Laterality Modality Body, Chest N/A Computed Radiogr aphy 10/27/2023 10:5 5 AM BUILDING ADMIN Impressions 10/27/2023 10:55 AM BUILDING ADMIN Right internal jugular central venous catheter terminates in the superior cavoatrial junction. Unchanged small left pleural effusion with associated atelectasis. No consolidation to suggest pneumonia. ??No pneumothorax. ??Cardiac mediastinal silhouette is stable. Electronically signed by: Gucci Moe M.D. Narrative 10/27/2023 10:55 AM BUILDING ADMIN EXAMINATION: XR CHEST 1 VIEW HISTORY: pleural effusion Procedure Note Gucci Moe MD - 10/27/2023 EXAMINATION: XR CHEST 1 VIEW HISTORY: pleural effusion IMPRESSION: Right internal jugular central venous catheter terminates in the superior cavoatrial junction. Unchanged small left pleural effusion with associated atelectasis. No consolidation to suggest pneumonia. No pneumothorax. Cardiac mediastinal silhouette is stable. Electronically signed by: Gucci Moe M.D. Byron Olvera SENIOR CAREGIVER IMG XR PROCEDURES Final Result * (ABNORMAL) Osmolality, blood (10/27/2023 6:02 AM BUILDING ADMIN) Osmo 313(H) 275 - 295 mOsm/kg Blood 10/27/2023 6:02 AM BUILDING ADMIN 10/27/2023 6:12 AM BUILDING ADMIN us Fernandez Carranza MD LAB BLOOD ORDERABLES Final Resu lt Performing Organization Address [facility]/ZIP Co de Phone Number [facility] [address] [place] [address] * (ABNORMAL) TSH (10/27/2023 2:30 AM BUILDING ADMIN) Pathologist [facility] Thyroid Stimulating Hormone 13.20(H) 0.30 - 4.20 mcIUnit/mL Blood 10/27/2023 2:30 AM BUILDING ADMIN 10/27/2023 2:42 AM BUILDING ADMIN Jaqueline Valero MD LAB BLOOD ORDERABLES Final Result Performing Organization Address [facility] de Phone Number [facility] [address] [facility] [place] [address] * (ABNORMAL) aPTT (10/27/2023 2:30 AM BUILDING ADMIN) [facility] aPTT 91(H) 28 - 38 sec Comment: Interpretive Data Heparin therapeutic range: 66.0 - 100.0 seconds. Range based on correlation with therapeutic heparin activity range of 0.3 - 0.7 Units/mL. Current interpretive data was last revised on 2023. Blood 10/27/2023 2:30 AM BUILDING ADMIN 10/27/2023 2:34 AM BUILDING ADMIN Jaqueline Valero MD LAB BLOOD ORDERABLES Final Result Performing Organization Address [facility] de Phone Number [facility] [address] [facility] [place] [address] * eGFR (10/27/2023 2:30 AM BUILDING ADMIN) Pathologist [facility] eGFR 6 mL/min/1. 73 m2 Comment: Interpretive Data Reference [...] interpretive data was last reviewed 2021. Blood 10/27/2023 2:30 AM BUILDING ADMIN 10/27/2023 2:42 AM BUILDING ADMIN Byron Olvera NP LAB BLOOD ORDERABLES Fi nal Result Performing Organization Address [facility] de Phone Number [facility] [address] [place], [place] [id number] * (ABNORMAL) Protime-INR (10/27/2023 2:30 AM BUILDING ADMIN) PT 22.7(H) 10.3 - 13.7 sec INR 1.99(H) 0.90 - 1.20 [facility] Comment: Interpretive data Oral anticoagulant therapeutic ranges: Venous thromboembolism prophylaxis or treatment: 2.0-3.0 CARDIOLOGY Standard range: 2.0-3.0 High-intensity range: 2.5-3.5 Refer to indication-specific guidelines for appropriate target ranges for prosthetic heart valve replacement. Current interpretive data was last revised on 2019. Blood 10/27/2023 2:30 AM BUILDING ADMIN 10/27/2023 2:34 AM BUILDING ADMIN Byron Olvera NP LAB BLOOD ORDERABLES Fi nal Result Performing Organization Address [facility] de Phone Number [facility] [address] [place] [address] * Magnesium (10/27/2023 2:30 AM BUILDING ADMIN) Pathologist [facility] Magnesium 2.3 1.4 - 2.5 mg/dL Blood 10/27/2023 2:30 AM BUILDING ADMIN 10/27/2023 2:42 AM BUILDING ADMIN Byron Olvera NP LAB BLOOD ORDERABLES Fi nal Result [facility] [address] [place] [address] * (ABNORMAL) Renal function panel (10/27/2023 2:30 AM BUILDING ADMIN) Pathologist [facility] Sodium 123(L) 135 - 145 mmol/L Potassium, pl 4.2 3.3 - 4.9 mmol/L [facility] Chloride 85(L) 97 - 110 mmol/L [facility] CO2 24 22 - 32 mmol/L [facility] Anion gap 14 2 - 15 mmol/L [facility] BUN 87(H) 6 - 25 mg/dL [facility] Creatinine 10.09(H) 0.80 - 1.30 mg/dL [facility] Glucose 192 70 - 199 mg/dL [facility] Comment: Interpretive Data Fasting glucose [...] interpretive data was last revised 2022. Calcium 8.7 8.5 - 10.3 mg/dL [facility] Phosphorus, pl 7.1(H) 2.3 - 4.5 mg/dL [facility] Albumin 2.9(L) 3.5 - 5.0 g/dL [facility] Blood 10/27/2023 2:30 AM BUILDING ADMIN 10/27/2023 2:42 AM BUILDING ADMIN Byron Olvera NP LAB BLOOD ORDERABLES Fi nal Result Performing Organization Address [facility] Co de Phone Number [facility] [address] [place] [place] [address] * (ABNORMAL) CBC without differential (10/27/2023 2:30 AM BUILDING ADMIN) [facility] WBC 8.0 3.8 - 9.9 K/cumm Hgb 7.5(L) 13.0 - 17.5 g/dL [facility] Hct 23.7(L) 38.9 - 50.3 % [facility] Plt 222 150 - 400 K/cumm [facility] MPV 10.3 9.1 - 12.3 fL [facility] RBC 2.55(L) 4.30 - 5.80 M/cumm [facility] MCV 92.9 81.3 - 96.4 fL [facility] MCH 29.4 27.1 - 33.3 pg [facility] MCHC 31.6(L) 32.3 - 35.7 g/dL [facility] RDW CV 15.6(H) 11.1 - 14.9 % [facility] RDW SD 53.1(H) 35.7 - 48.1 fL [facility] NRBC abs 0.00 0.00 - 0.01 K/cumm [facility] Blood 10/27/2023 2:30 AM BUILDING ADMIN 10/27/2023 2:42 AM BUILDING ADMIN Byron Olvera NP LAB BLOOD ORDERABLES Fi nal Result Performing Organization Address [facility]/ZIP Co de Phone Number [facility] [address] [place] [address] * (ABNORMAL) POCT glucose (10/26/2023 11:15 PM BUILDING ADMIN) Pathologist [facility] Glucose, POC 220(H) 70 - 140 mg/dL Comment: For Glucose values <35 mg/dl when Hematocrit is >60 mg/dl,the test may not accurately detect significant hypoglycemia,and testing in the Laboratory should be considered if clinically indicated. Blood 10/26/2023 11:1 5 PM BUILDING ADMIN 10/26/2023 11:15 PM BUILDING ADMIN Jaqueline Valero MD LAB POCT ORDERABLES - APRIL CE Final Result Performing Organization Address [facility] de Phone Number [facility] [address] [facility] [place] [address] * (ABNORMAL) POCT glucose (10/26/2023 4:53 PM BUILDING ADMIN) Glucose, POC 333(H) 70 - 140 mg/dL Comment: For Glucose values <35 mg/dl when Hematocrit is >60 mg/dl,the test may not accurately detect significant hypoglycemia,and testing in the Laboratory should be considered if clinically indicated. Blood 10/26/2023 4:53 PM BUILDING ADMIN 10/26/2023 4:53 PM BUILDING ADMIN Jaqueline Valero MD LAB POCT ORDERABLES - APRIL CE Final Result Performing Organization Address [facility] de Phone Number [facility] [address] [place] [address] * (ABNORMAL) POCT glucose (10/26/2023 11:57 AM BUILDING ADMIN) Glucose, POC 203(H) 70 - 140 mg/dL Comment: For Glucose values <35 mg/dl when Hematocrit is >60 mg/dl,the test may not accurately detect significant hypoglycemia,and testing in the Laboratory should be considered if clinically indicated. Blood 10/26/2023 11:5 7 AM BUILDING ADMIN 10/26/2023 11:57 AM BUILDING ADMIN Jaqueline Valero MD LAB POCT ORDERABLES - APRIL CE Final Result Performing Organization Address [facility] de Phone Number [facility] [address] Department [place] [address] * POCT glucose (10/26/2023 8:00 AM BUILDING ADMIN) [facility] Signature Glucose, POC 90 70 - 140 mg/dL Comment: For Glucose values <35 mg/dl when Hematocrit is >60 mg/dl,the test may not accurately detect significant hypoglycemia,and testing in the Laboratory should be considered if clinically indicated. Blood 10/26/2023 8:00 AM BUILDING ADMIN 10/26/2023 8:00 AM BUILDING ADMIN us Jaqueline Valero MD LAB POCT ORDERABLES - APRIL CE Final Result [facility] [address] Department [place] [address] * XR Chest 1 View - Portable - in AM (10/26/2023 5:09 AM BUILDING ADMIN) Anatomical Region Laterality Modality Body, Chest N/A Computed Radiogr aphy 10/26/2023 7:40 AM BUILDING ADMIN Impressions 10/26/2023 7:40 AM BUILDING ADMIN Comparison chest radiograph 10/25/2023 at 6:39 AM. ??The patient is status post a median sternotomy, sternal wires and plates are aligned. ??Surgical clips are present. ??A right internal jugular catheter is in place, tip overlies the superior vena cava. There is an unchanged small left pleural effusion with adjacent mild left basilar atelectasis. ??Thickening along the right minor fissure which may represent scarring and/or atelectasis. ??Mild right basilar airspace opacities may represent aspiration or atelectasis, new compared to prior examination. ??No definite right pleural effusion. No pneumothorax. ??No pulmonary edema. ??Heart size and mediastinal contours are unchanged. Electronically signed by: Chris Troncoso M.D. Narrative 10/26/2023 7:40 AM BUILDING ADMIN EXAMINATION: ??1 view chest radiograph Procedure Note Chris Troncoso MD - 10/26/2023 EXAMINATION: 1 view chest radiograph IMPRESSION: Comparison chest radiograph 10/25/2023 at 6:39 AM. The patient is status post a median sternotomy, sternal wires and plates are aligned. Surgical clips are present. A right internal jugular catheter is in place, tip overlies the superior vena cava. There is an unchanged small left pleural effusion with adjacent mild left basilar atelectasis. Thickening along the right minor fissure which may represent scarring and/or atelectasis. Mild right basilar airspace opacities may represent aspiration or atelectasis, new compared to prior examination. No definite right pleural effusion. No pneumothorax. No pulmonary edema. Heart size and mediastinal contours are unchanged. Electronically signed by: Chris Troncoso M.D. Byron Olvera SENIOR CAREGIVER IMG XR PROCEDURES Final Result * eGFR (10/26/2023 2:29 AM BUILDING ADMIN) eGFR 6 mL/min/1. 73 m2 Comment: Interpretive Data Reference [...] interpretive data was last reviewed 2021. Blood 10/26/2023 2:29 AM BUILDING ADMIN 10/26/2023 3:11 AM BUILDING ADMIN Byron Olvera NP LAB BLOOD ORDERABLES Fi nal Result Performing Organization Address [facility] Co de Phone Number [facility] [address] [facility] [place], [place] [id number] * (ABNORMAL) aPTT (10/26/2023 2:29 AM BUILDING ADMIN) aPTT 74(H) 28 - 38 sec Comment: Interpretive Data Heparin therapeutic range: 66.0 - 100.0 seconds. Range based on correlation with therapeutic heparin activity range of 0.3 - 0.7 Units/mL. Current interpretive data was last revised on 2023. Blood 10/26/2023 2:29 AM BUILDING ADMIN 10/26/2023 2:57 AM BUILDING ADMIN Jaqueline Valero MD LAB BLOOD ORDERABLES Final Result Performing Organization Address [facility] Co de Phone Number [facility] [address] [facility] [place] [address] * (ABNORMAL) Protime-INR (10/26/2023 2:29 AM BUILDING ADMIN) PT 19.4(H) 10.3 - 13.7 sec INR 1.70(H) 0.90 - 1.20 [facility] Comment: Interpretive data Oral anticoagulant therapeutic ranges: Venous thromboembolism prophylaxis or treatment: 2.0-3.0 CARDIOLOGY Standard range: 2.0-3.0 High-intensity range: 2.5-3.5 Refer to indication-specific guidelines for appropriate target ranges for prosthetic heart valve replacement. Current interpretive data was last revised on 2019. Blood 10/26/2023 2:29 AM BUILDING ADMIN 10/26/2023 2:57 AM BUILDING ADMIN Byron Rudi Olvera SENIOR CAREGIVER LAB BLOOD ORDERABLES Fi nal Result [facility] [address] [place] [address] * Magnesium (10/26/2023 2:29 AM BUILDING ADMIN) [facility] Magnesium 2.2 1.4 - 2.5 mg/dL Blood 10/26/2023 2:29 AM BUILDING ADMIN 10/26/2023 3:11 AM BUILDING ADMIN Byron Rudi Olvera NP LAB BLOOD ORDERABLES Fi nal Result Performing Organization Address [facility] Co de Phone Number [facility] [address] [place] [address] * (ABNORMAL) Renal function panel (10/26/2023 2:29 AM BUILDING ADMIN) [facility] Sodium 124(L) 135 - 145 mmol/L Potassium, pl 4.2 3.3 - 4.9 mmol/L [facility] Chloride 84(L) 97 - 110 mmol/L [facility] CO2 23 22 - 32 mmol/L [facility] Anion gap 17(H) 2 - 15 mmol/L [facility] BUN 85(H) 6 - 25 mg/dL [facility] Creatinine 9.95(H) 0.80 - 1.30 mg/dL [facility] Glucose 206(H) 70 - 199 mg/dL [facility] Comment: Interpretive Data Fasting glucose [...] interpretive data was last revised 2022. Calcium 8.6 8.5 - 10.3 mg/dL [facility] Phosphorus, pl 6.5(H) 2.3 - 4.5 mg/dL [facility] Albumin 3.0(L) 3.5 - 5.0 g/dL [facility] Blood 10/26/2023 2:29 AM BUILDING ADMIN 10/26/2023 3:11 AM BUILDING ADMIN Byron Olvera NP LAB BLOOD ORDERABLES Fi nal Result Performing Organization Address [facility] Co de Phone Number [facility] [address] [place], [place] [id number] * (ABNORMAL) CBC without differential (10/26/2023 2:29 AM BUILDING ADMIN) [facility] WBC 7.9 3.8 - 9.9 K/cumm Hgb 7.9(L) 13.0 - 17.5 g/dL [facility] Hct 24.7(L) 38.9 - 50.3 % [facility] Plt 209 150 - 400 K/cumm [facility] MPV 10.6 9.1 - 12.3 fL [facility] RBC 2.64(L) 4.30 - 5.80 M/cumm [facility] MCV 93.6 81.3 - 96.4 fL [facility] MCH 29.9 27.1 - 33.3 pg [facility] MCHC 32.0(L) 32.3 - 35.7 g/dL [facility] RDW CV 15.5(H) 11.1 - 14.9 % [facility] RDW SD 52.4(H) 35.7 - 48.1 fL [facility] NRBC abs 0.00 0.00 - 0.01 K/cumm [facility] Blood 10/26/2023 2:29 AM BUILDING ADMIN 10/26/2023 3:11 AM BUILDING ADMIN Byron Olvera NP LAB BLOOD ORDERABLES Fi nal Result Performing Organization Address [facility]/ZIP Co de Phone Number [facility] [address] [place], [place] [id number] * (ABNORMAL) aPTT (10/25/2023 9:15 PM BUILDING ADMIN) aPTT 78(H) 28 - 38 sec Comment: Interpretive Data Heparin therapeutic range: 66.0 - 100.0 seconds. Range based on correlation with therapeutic heparin activity range of 0.3 - 0.7 Units/mL. Current interpretive data was last revised on 2023. Blood 10/25/2023 9:15 PM BUILDING ADMIN 10/25/2023 9:19 PM BUILDING ADMIN Jaqueline Valero MD LAB BLOOD ORDERABLES Final Result Performing Organization Address [facility] Co de Phone Number [facility] [address] [facility] [place], [place] [id number] * (ABNORMAL) POCT glucose (10/25/2023 9:14 PM BUILDING ADMIN) Glucose, POC 147(H) 70 - 140 mg/dL Comment: For Glucose values <35 mg/dl when Hematocrit is >60 mg/dl,the test may not accurately detect significant hypoglycemia,and testing in the Laboratory should be considered if clinically indicated. Blood 10/25/2023 9:14 PM BUILDING ADMIN 10/25/2023 9:14 PM BUILDING ADMIN Jaqueline Valero MD LAB POCT ORDERABLES - APRIL CE Final Result Performing Organization Address [facility] Co de Phone Number [facility] [address] [facility] [place] [address] * (ABNORMAL) POCT glucose (10/25/2023 4:51 PM BUILDING ADMIN) Glucose, POC 238(H) 70 - 140 mg/dL Comment: For Glucose values <35 mg/dl when Hematocrit is >60 mg/dl,the test may not accurately detect significant hypoglycemia,and testing in the Laboratory should be considered if clinically indicated. Blood 10/25/2023 4:51 PM BUILDING ADMIN 10/25/2023 4:51 PM BUILDING ADMIN Jaqueline Valero MD LAB POCT ORDERABLES - APRIL CE Final Result Performing Organization Address [facility] Co de Phone Number [facility] [address] [place], [place] [phone] * (ABNORMAL) aPTT (10/25/2023 2:48 PM BUILDING ADMIN) aPTT 72(H) 28 - 38 sec Comment: Interpretive Data Heparin therapeutic range: 66.0 - 100.0 seconds. Range based on correlation with therapeutic heparin activity range of 0.3 - 0.7 Units/mL. Current interpretive data was last revised on 2023. Blood 10/25/2023 2:48 PM BUILDING ADMIN 10/25/2023 3:04 PM BUILDING ADMIN Jaqueline Valero MD LAB BLOOD ORDERABLES Final Result Performing Organization Address [facility] de Phone Number [facility] [address] [place], [place] [id number] * (ABNORMAL) POCT glucose (10/25/2023 11:15 AM BUILDING ADMIN) Glucose, POC 208(H) 70 - 140 mg/dL Comment: For Glucose values <35 mg/dl when Hematocrit is >60 mg/dl,the test may not accurately detect significant hypoglycemia,and testing in the Laboratory should be considered if clinically indicated. Blood 10/25/2023 11:1 5 AM BUILDING ADMIN 10/25/2023 11:15 AM BUILDING ADMIN Jaqueline Valero MD LAB POCT ORDERABLES - APRIL CE Final Result Performing Organization Address [facility] Co de Phone Number [facility] [address] [facility] [place], [place] [phone] * POCT glucose (10/25/2023 9:49 AM BUILDING ADMIN) Glucose, POC 119 70 - 140 mg/dL Comment: For Glucose values <35 mg/dl when Hematocrit is >60 mg/dl,the test may not accurately detect significant hypoglycemia,and testing in the Laboratory should be considered if clinically indicated. Blood 10/25/2023 9:49 AM BUILDING ADMIN 10/25/2023 9:49 AM BUILDING ADMIN Jaqueline Valero MD LAB POCT ORDERABLES - APRIL CE Final Result Performing Organization Address [facility] de Phone Number [facility] [address] [place] [address] * POCT glucose (10/25/2023 7:36 AM BUILDING ADMIN) [facility] Signature Glucose, POC 77 70 - 140 mg/dL [facility] Comment: For Glucose values <35 mg/dl when Hematocrit is >60 mg/dl,the test may not accurately detect significant hypoglycemia,and testing in the Laboratory should be considered if clinically indicated. Blood 10/25/2023 7:36 AM BUILDING ADMIN 10/25/2023 7:36 AM BUILDING ADMIN Jaqueline Valero MD LAB POCT ORDERABLES - APRIL CE Final Result Performing Organization Address [facility] de Phone Number [facility] [address] [place] [address] * XR Chest 1 View - Portable - in AM (10/25/2023 6:52 AM BUILDING ADMIN) Anatomical Region Laterality Modality Body, Chest N/A Computed Radiogr aphy 10/25/2023 11:4 3 AM BUILDING ADMIN Impressions 10/25/2023 1:22 PM BUILDING ADMIN Comparison made to 10/24/2023. ??Sternal fixation wires and plates are seen and are intact. ??A right internal jugular catheter is in place with the tip overlying the superior vena cava. Interval improved aeration of the left lower lung with persistent trace left pleural effusion and improved, now mild atelectasis of the left lung base. ??Right lung is clear. ??There is no pneumothorax. Cardiomediastinal silhouette is unchanged. Dictated by: Becki Dickey MD The radiology attending physician has personally reviewed this study, and had reviewed and/or edited this written report and agrees with it. Electronically signed by: Arnoldo Abdul M.D. Narrative 10/25/2023 1:22 PM BUILDING ADMIN EXAMINATION: XR CHEST 1 VIEW Procedure Note Arnoldo Abdul MD - 10/25/2023 EXAMINATION: XR CHEST 1 VIEW IMPRESSION: Comparison made to 10/24/2023. Sternal fixation wires and plates are seen and are intact. A right internal jugular catheter is in place with the tip overlying the superior vena cava. Interval improved aeration of the left lower lung with persistent trace left pleural effusion and improved, now mild atelectasis of the left lung base. Right lung is clear. There is no pneumothorax. Cardiomediastinal silhouette is unchanged. Dictated by: Becki Dickey MD The radiology attending physician has personally reviewed this study, and had reviewed and/or edited this written report and agrees with it. Electronically signed by: Arnoldo Abdul M.D. Byron Olvera SENIOR CAREGIVER IMG XR PROCEDURES Final Result * (ABNORMAL) aPTT (10/25/2023 6:48 AM BUILDING ADMIN) aPTT 65(H) 28 - 38 sec [facility] Comment: Interpretive Data Heparin therapeutic range: 66.0 - 100.0 seconds. Range based on correlation with therapeutic heparin activity range of 0.3 - 0.7 Units/mL. Current interpretive data was last revised on 2023. Blood 10/25/2023 6:48 AM BUILDING ADMIN 10/25/2023 6:58 AM BUILDING ADMIN us Jaqueline Valero MD LAB BLOOD ORDERABLES Final Result [facility] [address] [place] [address] * POCT glucose (10/25/2023 4:23 AM BUILDING ADMIN) Glucose, POC 130 70 - 140 mg/dL [facility] Comment: For Glucose values <35 mg/dl when Hematocrit is >60 mg/dl,the test may not accurately detect significant hypoglycemia,and testing in the Laboratory should be considered if clinically indicated. Blood 10/25/2023 4:23 AM BUILDING ADMIN 10/25/2023 4:23 AM BUILDING ADMIN us Jaqueline Valero MD LAB POCT ORDERABLES - APRIL CE Final Result [facility] [address] [place] [address] * eGFR (10/25/2023 12:34 AM BUILDING ADMIN) [facility] eGFR 5 mL/min/1. 73 m2 [facility] Comment: Interpretive Data Reference Interval Normal ?>/= [...] interpretive data was last reviewed 2021. Blood 10/25/2023 12:3 4 AM BUILDING ADMIN 10/25/2023 12:42 AM BUILDING ADMIN Byron Olvera NP LAB BLOOD ORDERABLES Fi nal Result Performing Organization Address [facility]/ZIP Co de Phone Number [facility] [address] [facility] [place] [address] * Magnesium (10/25/2023 12:34 AM BUILDING ADMIN) [facility] Magnesium 2.3 1.4 - 2.5 mg/dL [facility] Blood 10/25/2023 12:3 4 AM BUILDING ADMIN 10/25/2023 12:42 AM BUILDING ADMIN Byron Olvera NP LAB BLOOD ORDERABLES Fi nal Result Performing Organization Address [facility] de Phone Number [facility] [address] [facility] [place] [address] * (ABNORMAL) Renal function panel (10/25/2023 12:34 AM BUILDING ADMIN) Pathologist [facility] Sodium 128(L) 135 - 145 mmol/L [facility] Potassium, pl 4.0 3.3 - 4.9 mmol/L [facility] Chloride 86(L) 97 - 110 mmol/L [facility] CO2 21(L) 22 - 32 mmol/L [facility] Anion gap 21(H) 2 - 15 mmol/L [facility] BUN 86(H) 6 - 25 mg/dL [facility] Creatinine 10.57(H) 0.80 - 1.30 mg/dL [facility] Glucose 97 70 - 199 mg/dL [facility] Comment: Interpretive Data Fasting glucose [...] interpretive data was last revised 2022. Calcium 9.0 8.5 - 10.3 mg/dL [facility] Phosphorus, pl 6.5(H) 2.3 - 4.5 mg/dL [facility] Albumin 2.9(L) 3.5 - 5.0 g/dL [facility] Blood 10/25/2023 12:3 4 AM BUILDING ADMIN 10/25/2023 12:42 AM BUILDING ADMIN Byron Olvera NP LAB BLOOD ORDERABLES nal Result [facility] [address] [place] [address] * (ABNORMAL) CBC without differential (10/25/2023 12:34 AM BUILDING ADMIN) WBC 8.2 3.8 - 9.9 K/cumm [facility] Hgb 7.8(L) 13.0 - 17.5 g/dL [facility] Hct 24.7(L) 38.9 - 50.3 % [facility] Plt 202 150 - 400 K/cumm [facility] MPV 10.2 9.1 - 12.3 fL [facility] RBC 2.65(L) 4.30 - 5.80 M/cumm [facility] MCV 93.2 81.3 - 96.4 fL [facility] MCH 29.4 27.1 - 33.3 pg [facility] MCHC 31.6(L) 32.3 - 35.7 g/dL [facility] RDW CV 15.9(H) 11.1 - 14.9 % [facility] RDW SD 53.1(H) 35.7 - 48.1 fL [facility] NRBC abs 0.00 0.00 - 0.01 K/cumm [facility] Blood 10/25/2023 12:3 4 AM BUILDING ADMIN 10/25/2023 12:43 AM BUILDING ADMIN Byron Olvera NP LAB BLOOD ORDERABLES Fi nal Result [facility] [address] [facility] [place] [address] * (ABNORMAL) Protime-INR (10/25/2023 12:33 AM BUILDING ADMIN) PT 18.5(H) 10.3 - 13.7 sec [facility] INR 1.62(H) 0.90 - 1.20 [facility] Comment: Interpretive data Oral anticoagulant therapeutic ranges: Venous thromboembolism prophylaxis or treatment: 2.0-3.0 CARDIOLOGY Standard range: 2.0-3.0 High-intensity range: 2.5-3.5 Refer to indication-specific guidelines for appropriate target ranges for prosthetic heart valve replacement. Current interpretive data was last revised on 2019. Blood 10/25/2023 12:3 3 AM BUILDING ADMIN 10/25/2023 12:40 AM BUILDING ADMIN us Jaqueline Valero MD LAB BLOOD ORDERABLES Final Result Performing Organization Address [facility]/ZIP Co de Phone Number [facility] [address] [facility] [place] [address] * (ABNORMAL) aPTT (10/25/2023 12:33 AM BUILDING ADMIN) aPTT 58(H) 28 - 38 sec [facility] Comment: Interpretive Data Heparin therapeutic range: 66.0 - 100.0 seconds. Range based on correlation with therapeutic heparin activity range of 0.3 - 0.7 Units/mL. Current interpretive data was last revised on 2023. Blood 10/25/2023 12:3 3 AM BUILDING ADMIN 10/25/2023 12:40 AM BUILDING ADMIN Jaqueline Valero MD LAB BLOOD ORDERABLES Final Result [facility] [address] [facility] [place] [address] * POCT glucose (10/24/2023 9:51 PM BUILDING ADMIN) Glucose, POC 130 70 - 140 mg/dL [facility] Comment: For Glucose values <35 mg/dl when Hematocrit is >60 mg/dl,the test may not accurately detect significant hypoglycemia,and testing in the Laboratory should be considered if clinically indicated. Blood 10/24/2023 9:51 PM BUILDING ADMIN 10/24/2023 9:51 PM BUILDING ADMIN Jaqueline Valero MD LAB POCT ORDERABLES - APRIL CE Final Result Performing Organization Address [facility] de Phone Number [facility] [address] [facility] [place] [address] * (ABNORMAL) aPTT (10/24/2023 5:15 PM BUILDING ADMIN) aPTT 45(H) 28 - 38 sec [facility] Comment: Interpretive Data Heparin therapeutic range: 66.0 - 100.0 seconds. Range based on correlation with therapeutic heparin activity range of 0.3 - 0.7 Units/mL. Current interpretive data was last revised on 2023. Blood 10/24/2023 5:15 PM BUILDING ADMIN 10/24/2023 5:15 PM BUILDING ADMIN Jaqueline Valero MD LAB BLOOD ORDERABLES Final Result Performing Organization Address [facility] Co de Phone Number [facility] [address] [facility] [place] [address] * (ABNORMAL) POCT glucose (10/24/2023 4:42 PM BUILDING ADMIN) Glucose, POC 149(H) 70 - 140 mg/dL [facility] Comment: For Glucose values <35 mg/dl when Hematocrit is >60 mg/dl,the test may not accurately detect significant hypoglycemia,and testing in the Laboratory should be considered if clinically indicated. Blood 10/24/2023 4:42 PM BUILDING ADMIN 10/24/2023 4:42 PM BUILDING ADMIN Jaqueline Valero MD LAB POCT ORDERABLES - APRIL CE Final Result Performing Organization Address [facility] de Phone Number [facility] [address] [facility] [place] [address] * POCT glucose (10/24/2023 12:17 PM BUILDING ADMIN) Glucose, POC 118 70 - 140 mg/dL [facility] Comment: For Glucose values <35 mg/dl when Hematocrit is >60 mg/dl,the test may not accurately detect significant hypoglycemia,and testing in the Laboratory should be considered if clinically indicated. Blood 10/24/2023 12:1 7 PM BUILDING ADMIN 10/24/2023 12:17 PM BUILDING ADMIN Jaqueline Valero MD LAB POCT ORDERABLES - APRIL CE Final Result Performing Organization Address [facility] de Phone Number [facility] [address] [facility] [place] [address] * (ABNORMAL) POCT glucose (10/24/2023 7:44 AM BUILDING ADMIN) Glucose, POC 202(H) 70 - 140 mg/dL [facility] Comment: For Glucose values <35 mg/dl when Hematocrit is >60 mg/dl,the test may not accurately detect significant hypoglycemia,and testing in the Laboratory should be considered if clinically indicated. Blood 10/24/2023 7:44 AM BUILDING ADMIN 10/24/2023 7:44 AM BUILDING ADMIN Jaqueline Valero MD LAB POCT ORDERABLES - APRIL CE Final Result Performing Organization Address [facility] de Phone Number [facility] [address] [place] [address] * XR Chest 1 View - Portable - in AM (10/24/2023 5:54 AM BUILDING ADMIN) Anatomical Region Laterality Modality Body, Chest N/A Computed Radiogr aphy 10/24/2023 10:3 4 AM BUILDING ADMIN Impressions 10/24/2023 10:34 AM BUILDING ADMIN Comparison is made to single view chest radiograph dated 10/23/2023. ??Sternotomy wires and sternal plates are unchanged. Right internal jugular central venous catheter tip overlies superior vena cava. Persistent small lung volumes with left basilar opacities compatible with a combination of atelectasis and possibly aspiration. ??Unchanged small left pleural effusion. ??No pneumothorax. ??Cardiomediastinal silhouette is stable. Electronically signed by: Tania Malone M.D. Narrative 10/24/2023 10:34 AM BUILDING ADMIN EXAMINATION: 1 view chest radiograph Procedure Note Tania Malone MD - 10/24/2023 EXAMINATION: 1 view chest radiograph IMPRESSION: Comparison is made to single view chest radiograph dated 10/23/2023. Sternotomy wires and sternal plates are unchanged. Right internal jugular central venous catheter tip overlies superior vena cava. Persistent small lung volumes with left basilar opacities compatible with a combination of atelectasis and possibly aspiration. Unchanged small left pleural effusion. No pneumothorax. Cardiomediastinal silhouette is stable. Electronically signed by: Tania Malone M.D. Byron Olvera SENIOR CAREGIVER IMG XR PROCEDURES Final Result * eGFR (10/24/2023 1:03 AM BUILDING ADMIN) eGFR 5 mL/min/1. 73 m2 [facility] Comment: Interpretive Data Reference Interval Normal ?>/= [...] interpretive data was last reviewed 2021. Blood 10/24/2023 1:03 AM BUILDING ADMIN 10/24/2023 1:13 AM BUILDING ADMIN Byron Olvera NP LAB BLOOD ORDERABLES Fi nal Result Performing Organization Address [facility] de Phone Number [facility] [address] [place] [place] [address] * (ABNORMAL) Protime-INR (10/24/2023 1:03 AM BUILDING ADMIN) PT 18.2(H) 10.3 - 13.7 sec [facility] INR 1.60(H) 0.90 - 1.20 [facility] Comment: Interpretive data Oral anticoagulant therapeutic ranges: Venous thromboembolism prophylaxis or treatment: 2.0-3.0 CARDIOLOGY Standard range: 2.0-3.0 High-intensity range: 2.5-3.5 Refer to indication-specific guidelines for appropriate target ranges for prosthetic heart valve replacement. Current interpretive data was last revised on 2019. Blood 10/24/2023 1:03 AM BUILDING ADMIN 10/24/2023 1:13 AM BUILDING ADMIN Byron Olvera NP LAB BLOOD ORDERABLES Fi nal Result Performing Organization Address [facility] Co de Phone Number [facility] [address] [place], [place] [id number] * Magnesium (10/24/2023 1:03 AM BUILDING ADMIN) Magnesium 2.2 1.4 - 2.5 mg/dL [facility] Blood 10/24/2023 1:03 AM BUILDING ADMIN 10/24/2023 1:13 AM BUILDING ADMIN us Byron Olvera SENIOR CAREGIVER LAB BLOOD ORDERABLES Fi nal Result [facility] [address] [place] [address] * (ABNORMAL) Renal function panel (10/24/2023 1:03 AM BUILDING ADMIN) Pathologist [facility] Sodium 127(L) 135 - 145 mmol/L [facility] Potassium, pl 4.2 3.3 - 4.9 mmol/L [facility] Chloride 86(L) 97 - 110 mmol/L [facility] CO2 21(L) 22 - 32 mmol/L [facility] Anion gap 20(H) 2 - 15 mmol/L [facility] BUN 90(H) 6 - 25 mg/dL [facility] Creatinine 11.24(H) 0.80 - 1.30 mg/dL [facility] Glucose 143 70 - 199 mg/dL [facility] Comment: Interpretive Data Fasting glucose [...] interpretive data was last revised 2022. Calcium 8.6 8.5 - 10.3 mg/dL [facility] Phosphorus, pl 6.1(H) 2.3 - 4.5 mg/dL [facility] Albumin 2.7(L) 3.5 - 5.0 g/dL [facility] Blood 10/24/2023 1:03 AM BUILDING ADMIN 10/24/2023 1:13 AM BUILDING ADMIN Byron Olvera NP LAB BLOOD ORDERABLES Fi nal Result Performing Organization Address [facility] Co de Phone Number [facility] [address] [place] [place] [address] * (ABNORMAL) CBC without differential (10/24/2023 1:03 AM BUILDING ADMIN) [facility] WBC 9.3 3.8 - 9.9 K/cumm [facility] Hgb 7.6(L) 13.0 - 17.5 g/dL [facility] Hct 24.4(L) 38.9 - 50.3 % [facility] Plt 184 150 - 400 K/cumm [facility] MPV 10.5 9.1 - 12.3 fL [facility] RBC 2.58(L) 4.30 - 5.80 M/cumm [facility] MCV 94.6 81.3 - 96.4 fL [facility] MCH 29.5 27.1 - 33.3 pg [facility] MCHC 31.1(L) 32.3 - 35.7 g/dL [facility] RDW CV 15.9(H) 11.1 - 14.9 % [facility] RDW SD 53.1(H) 35.7 - 48.1 fL [facility] NRBC abs 0.00 0.00 - 0.01 K/cumm [facility] Blood 10/24/2023 1:03 AM BUILDING ADMIN 10/24/2023 1:13 AM BUILDING ADMIN Byron Olvera NP LAB BLOOD ORDERABLES Fi nal Result Performing Organization Address [facility]/ZIP Co de Phone Number [facility] [address] [place] [address] * POCT glucose (10/23/2023 11:14 PM BUILDING ADMIN) Pathologist [facility] Glucose, POC 128 70 - 140 mg/dL [facility] Comment: For Glucose values <35 mg/dl when Hematocrit is >60 mg/dl,the test may not accurately detect significant hypoglycemia,and testing in the Laboratory should be considered if clinically indicated. Blood 10/23/2023 11:1 4 PM BUILDING ADMIN 10/23/2023 11:14 PM BUILDING ADMIN Jaqueline Valero MD LAB POCT ORDERABLES - APRIL CE Final Result Performing Organization Address [facility] de Phone Number [facility] [address] [place] [address] * POCT glucose (10/23/2023 10:43 PM BUILDING ADMIN) Glucose, POC 92 70 - 140 mg/dL [facility] Comment: For Glucose values <35 mg/dl when Hematocrit is >60 mg/dl,the test may not accurately detect significant hypoglycemia,and testing in the Laboratory should be considered if clinically indicated. Blood 10/23/2023 10:4 3 PM BUILDING ADMIN 10/23/2023 10:43 PM BUILDING ADMIN Result [facility] Jaqueline Valero MD LAB POCT ORDERABLES - APRIL CE Final Result Performing Organization Address [facility] de Phone Number [facility] [address] [place] [address] * POCT glucose (10/23/2023 5:12 PM BUILDING ADMIN) Glucose, POC 113 70 - 140 mg/dL [facility] Comment: For Glucose values <35 mg/dl when Hematocrit is >60 mg/dl,the test may not accurately detect significant hypoglycemia,and testing in the Laboratory should be considered if clinically indicated. Blood 10/23/2023 5:12 PM BUILDING ADMIN 10/23/2023 5:12 PM BUILDING ADMIN Jaqueline Valero MD LAB POCT ORDERABLES - APRIL CE Final Result Performing Organization Address [facility]/ZIP Co de Phone Number [facility] [address] [facility] [place] [address] * (ABNORMAL) POCT glucose (10/23/2023 12:08 PM BUILDING ADMIN) Glucose, POC 203(H) 70 - 140 mg/dL [facility] Comment: For Glucose values <35 mg/dl when Hematocrit is >60 mg/dl,the test may not accurately detect significant hypoglycemia,and testing in the Laboratory should be considered if clinically indicated. Blood 10/23/2023 12:0 8 PM BUILDING ADMIN 10/23/2023 12:08 PM BUILDING ADMIN Jaqueline Valero MD LAB POCT ORDERABLES - APRIL CE Final Result Performing Organization Address [facility] Co de Phone Number [facility] [address] [facility] [place] [address] * (ABNORMAL) POCT glucose (10/23/2023 7:54 AM BUILDING ADMIN) Glucose, POC 205(H) 70 - 140 mg/dL [facility] Comment: For Glucose values <35 mg/dl when Hematocrit is >60 mg/dl,the test may not accurately detect significant hypoglycemia,and testing in the Laboratory should be considered if clinically indicated. Blood 10/23/2023 7:54 AM BUILDING ADMIN 10/23/2023 7:54 AM BUILDING ADMIN Jaqueline Valero MD LAB POCT ORDERABLES - APRIL CE Final Result Performing Organization Address [facility] Co de Phone Number [facility] [address] [facility] [place] [address] * XR Chest 1 View - Portable - in AM (10/23/2023 6:24 AM BUILDING ADMIN) Anatomical Region Laterality Modality Body, Chest N/A Computed Radiogr aphy 10/23/2023 7:12 AM BUILDING ADMIN Impressions 10/23/2023 7:12 AM BUILDING ADMIN Comparison is made to 10/22/2023. ??There are median sternotomy wires and reconstruction plates. ??Right internal jugular central venous catheter has tip in the superior vena cava. No interval change in streaky opacity at the left base which could be secondary to aspiration or atelectasis in association with small left effusion. ??Atelectasis along the right minor fissure is unchanged. There is no pneumothorax. ??No edema. ??Overall, no change. Electronically signed by: Manuel Bruno M.D. Narrative 10/23/2023 7:12 AM BUILDING ADMIN Examination: Chest one view Procedure Note Manuel Bruno MD - 10/23/2023 Examination: Chest one view IMPRESSION: Comparison is made to 10/22/2023. There are median sternotomy wires and reconstruction plates. Right internal jugular central venous catheter has tip in the superior vena cava. No interval change in streaky opacity at the left base which could be secondary to aspiration or atelectasis in association with small left effusion. Atelectasis along the right minor fissure is unchanged. There is no pneumothorax. No edema. Overall, no change. Electronically signed by: Manuel Bruno M.D. Byron Olvera SENIOR CAREGIVER IMG XR PROCEDURES Final Result * eGFR (10/23/2023 1:53 AM BUILDING ADMIN) eGFR 5 mL/min/1. 73 m2 [facility] Comment: Interpretive Data Reference Interval Normal ?>/= [...] interpretive data was last reviewed 2021. Blood 10/23/2023 1:53 AM BUILDING ADMIN 10/23/2023 2:08 AM BUILDING ADMIN Byron Olvera NP LAB BLOOD ORDERABLES Fi nal Result Performing Organization Address [facility] de Phone Number [facility] [address] [place] [place] [address] * (ABNORMAL) Protime-INR (10/23/2023 1:53 AM BUILDING ADMIN) PT 24.9(H) 10.3 - 13.7 sec [facility] INR 2.18(H) 0.90 - 1.20 [facility] Comment: Interpretive data Oral anticoagulant therapeutic ranges: Venous thromboembolism prophylaxis or treatment: 2.0-3.0 CARDIOLOGY Standard range: 2.0-3.0 High-intensity range: 2.5-3.5 Refer to indication-specific guidelines for appropriate target ranges for prosthetic heart valve replacement. Current interpretive data was last revised on 2019. Blood 10/23/2023 1:53 AM BUILDING ADMIN 10/23/2023 2:08 AM BUILDING ADMIN Byron Olvera NP LAB BLOOD ORDERABLES Fi nal Result Performing Organization Address [facility] Co de Phone Number [facility] [address] [facility] [place], [place] [id number] * Magnesium (10/23/2023 1:53 AM BUILDING ADMIN) Magnesium 2.4 1.4 - 2.5 mg/dL [facility] Blood 10/23/2023 1:53 AM BUILDING ADMIN 10/23/2023 2:08 AM BUILDING ADMIN us Byron Olvera SENIOR CAREGIVER LAB BLOOD ORDERABLES Fi nal Result [facility] [address] Department [place] [address] * (ABNORMAL) Renal function panel (10/23/2023 1:53 AM BUILDING ADMIN) [facility] Sodium 132(L) 135 - 145 mmol/L [facility] Potassium, pl 4.3 3.3 - 4.9 mmol/L [facility] Chloride 91(L) 97 - 110 mmol/L [facility] CO2 20(L) 22 - 32 mmol/L [facility] Anion gap 21(H) 2 - 15 mmol/L [facility] BUN 91(H) 6 - 25 mg/dL [facility] Creatinine 11.59(H) 0.80 - 1.30 mg/dL [facility] Glucose 176 70 - 199 mg/dL [facility] Comment: Interpretive Data Fasting glucose [...] interpretive data was last revised 2022. Calcium 9.0 8.5 - 10.3 mg/dL [facility] Phosphorus, pl 6.2(H) 2.3 - 4.5 mg/dL [facility] Albumin 2.6(L) 3.5 - 5.0 g/dL [facility] Blood 10/23/2023 1:53 AM BUILDING ADMIN 10/23/2023 2:08 AM BUILDING ADMIN Byron Olvera SENIOR CAREGIVER LAB BLOOD ORDERABLES Fi nal Result Performing Organization Address [facility]/ZIP Co de Phone Number [facility] [address] [place], [place] [id number] * (ABNORMAL) CBC without differential (10/23/2023 1:53 AM BUILDING ADMIN) WBC 11.7(H) 3.8 - 9.9 K/cumm [facility] Hgb 8.5(L) 13.0 - 17.5 g/dL [facility] Hct 27.3(L) 38.9 - 50.3 % [facility] Plt 207 150 - 400 K/cumm [facility] MPV 10.5 9.1 - 12.3 fL [facility] RBC 2.86(L) 4.30 - 5.80 M/cumm [facility] MCV 95.5 81.3 - 96.4 fL [facility] MCH 29.7 27.1 - 33.3 pg [facility] MCHC 31.1(L) 32.3 - 35.7 g/dL [facility] RDW CV 15.9(H) 11.1 - 14.9 % [facility] RDW SD 53.6(H) 35.7 - 48.1 fL [facility] NRBC abs 0.00 0.00 - 0.01 K/cumm [facility] Blood 10/23/2023 1:53 AM BUILDING ADMIN 10/23/2023 2:08 AM BUILDING ADMIN Byron Olvera NP LAB BLOOD ORDERABLES Fi nal Result [facility] [address] [place], [place] [id number] * (ABNORMAL) POCT glucose (10/22/2023 11:55 PM BUILDING ADMIN) Glucose, POC 142(H) 70 - 140 mg/dL [facility] Comment: For Glucose values <35 mg/dl when Hematocrit is >60 mg/dl,the test may not accurately detect significant hypoglycemia,and testing in the Laboratory should be considered if clinically indicated. Blood 10/22/2023 11:5 5 PM BUILDING ADMIN 10/22/2023 11:55 PM BUILDING ADMIN Jaqueline Valero MD LAB POCT ORDERABLES - APRIL CE Final Result Performing Organization Address [facility] de Phone Number [facility] [address] [place] [address] * (ABNORMAL) POCT glucose (10/22/2023 9:12 PM BUILDING ADMIN) Glucose, POC 161(H) 70 - 140 mg/dL [facility] Comment: For Glucose values <35 mg/dl when Hematocrit is >60 mg/dl,the test may not accurately detect significant hypoglycemia,and testing in the Laboratory should be considered if clinically indicated. Blood 10/22/2023 9:12 PM BUILDING ADMIN 10/22/2023 9:12 PM BUILDING ADMIN Result [facility] Jaqueline Valero MD LAB POCT ORDERABLES - APRIL CE Final Result Performing Organization Address [facility] de Phone Number [facility] [address] [place] [address] * POCT glucose (10/22/2023 5:22 PM BUILDING ADMIN) Glucose, POC 102 70 - 140 mg/dL [facility] Comment: For Glucose values <35 mg/dl when Hematocrit is >60 mg/dl,the test may not accurately detect significant hypoglycemia,and testing in the Laboratory should be considered if clinically indicated. Blood 10/22/2023 5:22 PM BUILDING ADMIN 10/22/2023 5:22 PM BUILDING ADMIN Jaqueline Valero MD LAB POCT ORDERABLES - APRIL CE Final Result Performing Organization Address [facility] de Phone Number [facility] [address] [facility] [place] [address] * (ABNORMAL) POCT glucose (10/22/2023 12:49 PM BUILDING ADMIN) Glucose, POC 177(H) 70 - 140 mg/dL [facility] Comment: For Glucose values <35 mg/dl when Hematocrit is >60 mg/dl,the test may not accurately detect significant hypoglycemia,and testing in the Laboratory should be considered if clinically indicated. Blood 10/22/2023 12:4 9 PM BUILDING ADMIN 10/22/2023 12:49 PM BUILDING ADMIN Jaqueline Valero MD LAB POCT ORDERABLES - APRIL CE Final Result Performing Organization Address [facility] de Phone Number [facility] [address] [facility] [place] [address] * (ABNORMAL) POCT glucose (10/22/2023 8:12 AM BUILDING ADMIN) Glucose, POC 158(H) 70 - 140 mg/dL [facility] Comment: For Glucose values <35 mg/dl when Hematocrit is >60 mg/dl,the test may not accurately detect significant hypoglycemia,and testing in the Laboratory should be considered if clinically indicated. Blood 10/22/2023 8:12 AM BUILDING ADMIN 10/22/2023 8:12 AM BUILDING ADMIN Jaqueline Valero MD LAB POCT ORDERABLES - APRIL CE Final Result Performing Organization Address [facility] Co de Phone Number [facility] [address] [place] [address] * XR Chest 1 View - Portable - in AM (10/22/2023 6:38 AM BUILDING ADMIN) Anatomical Region Laterality Modality Body, Chest N/A Computed Radiogr aphy 10/22/2023 8:02 AM BUILDING ADMIN Impressions 10/22/2023 8:02 AM BUILDING ADMIN Comparison is made to single view chest radiograph dated 10/21/2023. ??Sternotomy wires and sternal plates are unchanged. Right internal jugular central venous catheter tip overlies the superior vena cava. Persistent small lung volumes with bilateral subsegmental atelectasis. ??Trace left pleural effusion. ??No pneumothorax. Cardiomediastinal silhouette is stable. Electronically signed by: Tania Malone M.D. Narrative 10/22/2023 8:02 AM BUILDING ADMIN EXAMINATION: 1 view chest radiograph Procedure Note Tania Malone MD - 10/22/2023 EXAMINATION: 1 view chest radiograph IMPRESSION: Comparison is made to single view chest radiograph dated 10/21/2023. Sternotomy wires and sternal plates are unchanged. Right internal jugular central venous catheter tip overlies the superior vena cava. Persistent small lung volumes with bilateral subsegmental atelectasis. Trace left pleural effusion. No pneumothorax. Cardiomediastinal silhouette is stable. Electronically signed by: Tania Malone M.D. Byron Olvera SENIOR CAREGIVER IMG XR PROCEDURES Final Result * eGFR (10/22/2023 12:31 AM BUILDING ADMIN) eGFR 5 mL/min/1. 73 m2 [facility] Comment: Interpretive Data Reference Interval Normal ?>/= [...] interpretive data was last reviewed 2021. Blood 10/22/2023 12:3 1 AM BUILDING ADMIN 10/22/2023 1:00 AM BUILDING ADMIN Byron Olvera NP LAB BLOOD ORDERABLES Fi nal Result Performing Organization Address [facility] Co de Phone Number [facility] [address] [place] [address] * (ABNORMAL) Protime-INR (10/22/2023 12:31 AM BUILDING ADMIN) PT 48.4(H) 10.3 - 13.7 sec [facility] INR 4.25(H) 0.90 - 1.20 [facility] Comment: Interpretive data Oral anticoagulant therapeutic ranges: Venous thromboembolism prophylaxis or treatment: 2.0-3.0 CARDIOLOGY Standard range: 2.0-3.0 High-intensity range: 2.5-3.5 Refer to indication-specific guidelines for appropriate target ranges for prosthetic heart valve replacement. Current interpretive data was last revised on 2019. Blood 10/22/2023 12:3 1 AM BUILDING ADMIN 10/22/2023 1:00 AM BUILDING ADMIN Byrno lOvera NP LAB BLOOD ORDERABLES Fi nal Result Performing Organization Address [facility] Co de Phone Number [facility] [address] [place] [address] * Magnesium (10/22/2023 12:31 AM BUILDING ADMIN) Magnesium 2.4 1.4 - 2.5 mg/dL [facility] Blood 10/22/2023 12:3 1 AM BUILDING ADMIN 10/22/2023 1:00 AM BUILDING ADMIN Byron Olvera NP LAB BLOOD ORDERABLES Fi nal Result Performing Organization Address City/[facility]/ZIP Co de Phone Number [facility] [address] [place] [address] * (ABNORMAL) Renal function panel (10/22/2023 12:31 AM BUILDING ADMIN) Sodium 134(L) 135 - 145 mmol/L [facility] Potassium, pl 4.3 3.3 - 4.9 mmol/L [facility] Chloride 93(L) 97 - 110 mmol/L [facility] CO2 21(L) 22 - 32 mmol/L [facility] Anion gap 20(H) 2 - 15 mmol/L [facility] BUN 87(H) 6 - 25 mg/dL [facility] Creatinine 11.33(H) 0.80 - 1.30 mg/dL [facility] Glucose 212(H) 70 - 199 mg/dL [facility] Comment: Interpretive Data Fasting glucose [...] interpretive data was last revised 2022. Calcium 8.8 8.5 - 10.3 mg/dL [facility] Phosphorus, pl 7.3(H) 2.3 - 4.5 mg/dL [facility] Albumin 2.8(L) 3.5 - 5.0 g/dL [facility] Blood 10/22/2023 12:3 1 AM BUILDING ADMIN 10/22/2023 1:00 AM BUILDING ADMIN Byron Olvera NP LAB BLOOD ORDERABLES Fi nal Result Performing Organization Address [facility]/ZIP Co de Phone Number [facility] [address] [place] [address] * (ABNORMAL) CBC without differential (10/22/2023 12:31 AM BUILDING ADMIN) [facility] WBC 10.6(H) 3.8 - 9.9 K/cumm [facility] Hgb 8.5(L) 13.0 - 17.5 g/dL [facility] Hct 27.2(L) 38.9 - 50.3 % [facility] Plt 201 150 - 400 K/cumm [facility] MPV 11.2 9.1 - 12.3 fL [facility] RBC 2.88(L) 4.30 - 5.80 M/cumm [facility] MCV 94.4 81.3 - 96.4 fL [facility] MCH 29.5 27.1 - 33.3 pg [facility] MCHC 31.3(L) 32.3 - 35.7 g/dL [facility] RDW CV 15.8(H) 11.1 - 14.9 % [facility] RDW SD 54.0(H) 35.7 - 48.1 fL [facility] NRBC abs 0.02(H) 0.00 - 0.01 K/cumm [facility] Blood 10/22/2023 12:3 1 AM BUILDING ADMIN 10/22/2023 1:00 AM BUILDING ADMIN Byron Olvera NP LAB BLOOD ORDERABLES Fi nal Result [facility] [address] [place] [address] * (ABNORMAL) POCT glucose (10/21/2023 9:31 PM BUILDING ADMIN) [facility] Glucose, POC 249(H) 70 - 140 mg/dL [facility] Comment: For Glucose values <35 mg/dl when Hematocrit is >60 mg/dl,the test may not accurately detect significant hypoglycemia,and testing in the Laboratory should be considered if clinically indicated. Blood 10/21/2023 9:31 PM BUILDING ADMIN 10/21/2023 9:31 PM BUILDING ADMIN Jaqueline Vlaero MD LAB POCT ORDERABLES - APRIL CE Final Result Performing Organization Address [facility] de Phone Number [facility] [address] [facility] [place] [address] * (ABNORMAL) POCT glucose (10/21/2023 5:16 PM BUILDING ADMIN) Glucose, POC 166(H) 70 - 140 mg/dL [facility] Comment: For Glucose values <35 mg/dl when Hematocrit is >60 mg/dl,the test may not accurately detect significant hypoglycemia,and testing in the Laboratory should be considered if clinically indicated. Blood 10/21/2023 5:16 PM BUILDING ADMIN 10/21/2023 5:16 PM BUILDING ADMIN Jaqueline Valero MD LAB POCT ORDERABLES - APRIL CE Final Result Performing Organization Address [facility] de Phone Number [facility] [address] [facility] [place] [address] * (ABNORMAL) POCT glucose (10/21/2023 12:29 PM BUILDING ADMIN) Glucose, POC 266(H) 70 - 140 mg/dL [facility] Comment: For Glucose values <35 mg/dl when Hematocrit is >60 mg/dl,the test may not accurately detect significant hypoglycemia,and testing in the Laboratory should be considered if clinically indicated. Blood 10/21/2023 12:2 9 PM BUILDING ADMIN 10/21/2023 12:29 PM BUILDING ADMIN Jaqueline Valero MD LAB POCT ORDERABLES - APRIL CE Final Result Performing Organization Address [facility] de Phone Number [facility] [address] [place] [address] * (ABNORMAL) POCT glucose (10/21/2023 8:06 AM BUILDING ADMIN) Glucose, POC 294(H) 70 - 140 mg/dL [facility] Comment: For Glucose values <35 mg/dl when Hematocrit is >60 mg/dl,the test may not accurately detect significant hypoglycemia,and testing in the Laboratory should be considered if clinically indicated. Blood 10/21/2023 8:06 AM BUILDING ADMIN 10/21/2023 8:06 AM BUILDING ADMIN us Jaqueline Valero MD LAB POCT ORDERABLES - APRIL CE Final Result [facility] [address] Department [place] [address] * XR Chest 1 View - Portable - in AM (10/21/2023 6:51 AM BUILDING ADMIN) Anatomical Region Laterality Modality Body, Chest N/A Computed Radiogr aphy 10/21/2023 7:17 AM BUILDING ADMIN Impressions 10/21/2023 7:17 AM BUILDING ADMIN Small left effusion and bilateral lower lobe atelectasis. Electronically signed by: Eric Cuevas M.D. Narrative 10/21/2023 7:17 AM BUILDING ADMIN EXAMINATION: XR CHEST 1 VIEW DATE: 10/21/2023 5:00 AM HISTORY: pleural effusion FINDINGS: Sternal wires and plates indicate prior cardiac surgery. ??Right internal jugular central venous catheter ends in the superior vena cava. There is left lower lobe atelectasis. ??There is no pneumothorax. Small left effusion is present. ??The heart is enlarged. ??Pulmonary vascularity is normal. Since 10/20/2023, little change has occurred. Procedure Note Eric Cuevas MD - 10/21/2023 EXAMINATION: XR CHEST 1 VIEW DATE: 10/21/2023 5:00 AM HISTORY: pleural effusion FINDINGS: Sternal wires and plates indicate prior cardiac surgery. Right internal jugular central venous catheter ends in the superior vena cava. There is left lower lobe atelectasis. There is no pneumothorax. Small left effusion is present. The heart is enlarged. Pulmonary vascularity is normal. Since 10/20/2023, little change has occurred. IMPRESSION: Small left effusion and bilateral lower lobe atelectasis. Electronically signed by: Eric Cuevas M.D. us Byron Olvera SENIOR CAREGIVER IMG XR PROCEDURES Final Result * ECG 12 lead (10/21/2023 4:39 AM BUILDING ADMIN) 10/21/2023 4:39 AM BUILDING ADMIN Narrative [facility] - 10/21/2023 8:34 AM BUILDING ADMIN Vent Rate: 100 bpm RR Interval: 599 msec GA Interval: 0 msec QRS Duration: 145 msec QT Interval: 394 msec QTC Interval: 451 msec P-R-T [place]: 0 - -9 - 132 degrees IMPRESSION: NORMAL SINUS RHYTHM [REASON: NORMAL P AXIS, GA, RATE \T\ RHYTHM] LEFT BUNDLE BRANCH BLOCK OCCASIONAL PVC Electronically Signed By: Jesus Huerta MD us Linda Oliva NP ECG ORDERABLES Final Result [facility] * eGFR (10/21/2023 1:40 AM BUILDING ADMIN) eGFR 5 mL/min/1. 73 m2 [facility] Comment: Interpretive Data Reference Interval Normal ?>/= [...] Inclusion of Race in Diagnosing Kidney Disease, SADESMyesha 2020). The CKD-EPI equation should not be used for patients with unstable renal function and has not been validated in children and those over 70. Current interpretive data was last reviewed 2021. Blood 10/21/2023 1:40 AM BUILDING ADMIN 10/21/2023 1:59 AM BUILDING ADMIN Byron Olvera NP LAB BLOOD ORDERABLES Fi nal Result Performing Organization Address [facility] de Phone Number [facility] [address] [place] [address] * (ABNORMAL) Protime-INR (10/21/2023 1:40 AM BUILDING ADMIN) PT 54.3(H) 10.3 - 13.7 sec [facility] INR 4.76(H) 0.90 - 1.20 [facility] Comment: Interpretive data Oral anticoagulant therapeutic ranges: Venous thromboembolism prophylaxis or treatment: 2.0-3.0 CARDIOLOGY Standard range: 2.0-3.0 High-intensity range: 2.5-3.5 Refer to indication-specific guidelines for appropriate target ranges for prosthetic heart valve replacement. Current interpretive data was last revised on 2019. Blood 10/21/2023 1:40 AM BUILDING ADMIN 10/21/2023 1:58 AM BUILDING ADMIN Byron Olvera NP LAB BLOOD ORDERABLES Fi nal Result Performing Organization Address [facility] Co de Phone Number [facility] [address] [place] [address] * Magnesium (10/21/2023 1:40 AM BUILDING ADMIN) Magnesium 2.4 1.4 - 2.5 mg/dL [facility] Blood 10/21/2023 1:40 AM BUILDING ADMIN 10/21/2023 1:59 AM BUILDING ADMIN Byron Olvera NP LAB BLOOD ORDERABLES Fi nal Result Performing Organization Address City/[facility]/ZIP Co de Phone Number [facility] [address] [place] [place] [address] * (ABNORMAL) Renal function panel (10/21/2023 1:40 AM BUILDING ADMIN) Sodium 134(L) 135 - 145 mmol/L [facility] Potassium, pl 4.5 3.3 - 4.9 mmol/L [facility] Chloride 93(L) 97 - 110 mmol/L [facility] CO2 22 22 - 32 mmol/L [facility] Anion gap 19(H) 2 - 15 mmol/L [facility] BUN 81(H) 6 - 25 mg/dL [facility] Creatinine 11.40(H) 0.80 - 1.30 mg/dL [facility] Glucose 289(H) 70 - 199 mg/dL [facility] Comment: Interpretive Data Fasting glucose [...] interpretive data was last revised 2022. Calcium 8.6 8.5 - 10.3 mg/dL [facility] Phosphorus, pl 8.2(H) 2.3 - 4.5 mg/dL [facility] Albumin 2.7(L) 3.5 - 5.0 g/dL [facility] Blood 10/21/2023 1:40 AM BUILDING ADMIN 10/21/2023 1:59 AM BUILDING ADMIN Byron Olvera NP LAB BLOOD ORDERABLES Fi nal Result Performing Organization Address City/[facility]/ZIP Co de Phone Number [facility] [address] [place] [address] * (ABNORMAL) CBC without differential (10/21/2023 1:40 AM BUILDING ADMIN) [facility] WBC 8.2 3.8 - 9.9 K/cumm [facility] Hgb 8.0(L) 13.0 - 17.5 g/dL [facility] Hct 25.6(L) 38.9 - 50.3 % [facility] Plt 185 150 - 400 K/cumm [facility] MPV 11.1 9.1 - 12.3 fL [facility] RBC 2.72(L) 4.30 - 5.80 M/cumm [facility] MCV 94.1 81.3 - 96.4 fL [facility] MCH 29.4 27.1 - 33.3 pg [facility] MCHC 31.3(L) 32.3 - 35.7 g/dL [facility] RDW CV 16.5(H) 11.1 - 14.9 % [facility] RDW SD 55.9(H) 35.7 - 48.1 fL [facility] NRBC abs 0.02(H) 0.00 - 0.01 K/cumm [facility] Blood 10/21/2023 1:40 AM BUILDING ADMIN 10/21/2023 1:59 AM BUILDING ADMIN Byron Olvera NP LAB BLOOD ORDERABLES Fi nal Result [facility] [address] [place] [address] * (ABNORMAL) POCT glucose (10/20/2023 9:24 PM BUILDING ADMIN) [facility] Glucose, POC 234(H) 70 - 140 mg/dL [facility] Comment: For Glucose values <35 mg/dl when Hematocrit is >60 mg/dl,the test may not accurately detect significant hypoglycemia,and testing in the Laboratory should be considered if clinically indicated. Blood 10/20/2023 9:24 PM BUILDING ADMIN 10/20/2023 9:24 PM BUILDING ADMIN us Jaqueline Valero MD LAB POCT ORDERABLES - APRIL CE Final Result Performing Organization Address [facility] Co de Phone Number [facility] [address] [facility] [place] [address] * POCT glucose (10/20/2023 5:24 PM BUILDING ADMIN) [facility] Signature Glucose, POC 89 70 - 140 mg/dL [facility] Comment: For Glucose values <35 mg/dl when Hematocrit is >60 mg/dl,the test may not accurately detect significant hypoglycemia,and testing in the Laboratory should be considered if clinically indicated. Blood 10/20/2023 5:24 PM BUILDING ADMIN 10/20/2023 5:24 PM BUILDING ADMIN us Jaqueline Valero MD LAB POCT ORDERABLES - APRIL CE Final Result Performing Organization Address [facility] Co de Phone Number [facility] [address] [place] [address] * Critical Care (10/20/2023 12:45 PM BUILDING ADMIN) Narrative Kirsten Burns MD - 10/20/2023 12:45 PM BUILDING ADMIN Byron Olvera NP ? 10/21/2023 10:22 AM Critical Care Performed by: Byron Olvera NP Authorized by: Byron Olvera NP ?? CRITICAL CARE: ??Team: ??[facility] CT ??Shift: ??AM ??Level of Billing: ??Subsequent Hospital Visit Level 3 ??My time spent with this patient was 60 minutes: Critical Provider Statement: I have seen and examined the patient on this day of service. I have reviewed and confirmed the history, physical exam, laboratory, and radiographic data as documented in the ICU note. I have reviewed and discussed my treatment plan with the patient's team and other medical/as400 consultant staff. This time was in addition to and separate from care provided by other practitioners on this day of service. ?? Byron Olvera NP IN CLINIC/BEDSIDE ORDER ROVERTO Final Result * POCT glucose (10/20/2023 11:47 AM BUILDING ADMIN) Glucose, POC 115 70 - 140 mg/dL [facility] Comment: For Glucose values <35 mg/dl when Hematocrit is >60 mg/dl,the test may not accurately detect significant hypoglycemia,and testing in the Laboratory should be considered if clinically indicated. Blood 10/20/2023 11:4 7 AM BUILDING ADMIN 10/20/2023 11:47 AM BUILDING ADMIN Result [facility] Jaqueline Valero MD LAB POCT ORDERABLES - APRIL CE Final Result Performing Organization Address [facility] de Phone Number [facility] [address] [facility] [place] [address] * POCT glucose (10/20/2023 10:09 AM BUILDING ADMIN) Glucose, POC 87 70 - 140 mg/dL [facility] Comment: For Glucose values <35 mg/dl when Hematocrit is >60 mg/dl,the test may not accurately detect significant hypoglycemia,and testing in the Laboratory should be considered if clinically indicated. Blood 10/20/2023 10:0 9 AM BUILDING ADMIN 10/20/2023 10:09 AM BUILDING ADMIN Result [facility] Jaqueline Valero MD LAB POCT ORDERABLES - APRIL CE Final Result Performing Organization Address [facility] de Phone Number [facility] [address] [facility] [place] [address] * POCT glucose (10/20/2023 9:15 AM BUILDING ADMIN) Glucose, POC 102 70 - 140 mg/dL [facility] Comment: For Glucose values <35 mg/dl when Hematocrit is >60 mg/dl,the test may not accurately detect significant hypoglycemia,and testing in the Laboratory should be considered if clinically indicated. Blood 10/20/2023 9:15 AM BUILDING ADMIN 10/20/2023 9:15 AM BUILDING ADMIN Result [facility] Jaqueline Valero MD LAB POCT ORDERABLES - APRIL CE Final Result Performing Organization Address [facility] Co de Phone Number [facility] [address] [facility] [place] [address] * POCT glucose (10/20/2023 7:23 AM BUILDING ADMIN) Glucose, POC 109 70 - 140 mg/dL [facility] Comment: For Glucose values <35 mg/dl when Hematocrit is >60 mg/dl,the test may not accurately detect significant hypoglycemia,and testing in the Laboratory should be considered if clinically indicated. Blood 10/20/2023 7:23 AM BUILDING ADMIN 10/20/2023 7:23 AM BUILDING ADMIN Jaqueline Valero MD LAB POCT ORDERABLES - APRIL CE Final Result Performing Organization Address [facility] Co de Phone Number [facility] [address] [place] [address] * XR Chest 1 View - Portable - in AM (10/20/2023 6:37 AM BUILDING ADMIN) Anatomical Region Laterality Modality Body, Chest N/A Computed Radiogr aphy 10/20/2023 7:51 AM BUILDING ADMIN Impressions 10/20/2023 7:51 AM BUILDING ADMIN Comparison is made to prior chest radiograph(s) dated 10/19/2023 at 4:24 PM. Sternal plates and median sternotomy wires, pericardial drain, and aortic valve replacement are noted. Right internal jugular central catheter terminates in the superior vena cava. Small left pleural effusion and mild bibasilar atelectasis are slightly increased from the prior exam. No pneumothorax. Cardiac size and mediastinal contours are stable. Electronically signed by: Vicki Suh M.D. Narrative 10/20/2023 7:51 AM BUILDING ADMIN EXAMINATION: XR CHEST 1 VIEW Procedure Note Vicki Suh MD - 10/20/2023 EXAMINATION: XR CHEST 1 VIEW IMPRESSION: Comparison is made to prior chest radiograph(s) dated 10/19/2023 at 4:24 PM. Sternal plates and median sternotomy wires, pericardial drain, and aortic valve replacement are noted. Right internal jugular central catheter terminates in the superior vena cava. Small left pleural effusion and mild bibasilar atelectasis are slightly increased from the prior exam. No pneumothorax. Cardiac size and mediastinal contours are stable. Electronically signed by: Vicki Suh M.D. Byron Olvera SENIOR CAREGIVER IMG XR PROCEDURES Final Result * POCT glucose (10/20/2023 6:12 AM BUILDING ADMIN) Glucose, POC 119 70 - 140 mg/dL [facility] Comment: For Glucose values <35 mg/dl when Hematocrit is >60 mg/dl,the test may not accurately detect significant hypoglycemia,and testing in the Laboratory should be considered if clinically indicated. Blood 10/20/2023 6:12 AM BUILDING ADMIN 10/20/2023 6:12 AM BUILDING ADMIN Jaqueline Valero MD LAB POCT ORDERABLES - APRIL CE Final Result Performing Organization Address [facility] Co de Phone Number [facility] [address] [place], [place] [address] * (ABNORMAL) POCT glucose (10/20/2023 3:57 AM BUILDING ADMIN) Glucose, POC 153(H) 70 - 140 mg/dL [facility] Comment: For Glucose values <35 mg/dl when Hematocrit is >60 mg/dl,the test may not accurately detect significant hypoglycemia,and testing in the Laboratory should be considered if clinically indicated. Blood 10/20/2023 3:57 AM BUILDING ADMIN 10/20/2023 3:57 AM BUILDING ADMIN Result [facility] Jaqueline Valero MD LAB POCT ORDERABLES - APRIL CE Final Result Performing Organization Address [facility] Co de Phone Number [facility] [address] [place] [address] * Oxyhemoglobin, central venous (10/20/2023 3:22 AM BUILDING ADMIN) Pathologist [facility] Oxyhemoglobin, CV 70.0 % [facility] Comment: Interpretive Data No reference range established. Current interpretive data was last revised 2019. Blood 10/20/2023 3:22 AM BUILDING ADMIN 10/20/2023 3:26 AM BUILDING ADMIN Gamal Fox SENIOR CAREGIVER LAB BLOOD ORDERABLES Final Result Performing Organization Address [facility] Co de Phone Number [facility] [address] [place] [address] * (ABNORMAL) aPTT (10/20/2023 3:22 AM BUILDING ADMIN) [facility] aPTT 114(H) 28 - 38 sec [facility] Comment: Interpretive Data Heparin therapeutic range: 66.0 - 100.0 seconds. Range based on correlation with therapeutic heparin activity range of 0.3 - 0.7 Units/mL. Current interpretive data was last revised on 2023. Blood 10/20/2023 3:22 AM BUILDING ADMIN 10/20/2023 3:28 AM BUILDING ADMIN Narrative [facility] - 10/20/2023 4:12 AM BUILDING ADMIN Draw STAT PTT 6 hrs after initiation of heparin infusion, draw STAT PTT 6 hours after each dose change, and every 6 hours until 2 consecutive PTTs are within therapeutic range. Once two consecutive PTT's are therapeutic (66-100 seconds), then draw PTT every AM until heparin is discontinued. Byron Olvera SENIOR CAREGIVER LAB BLOOD ORDERABLES Fi nal Result Performing Organization Address [facility] Co de Phone Number [facility] [address] Department [place], [place] [id number] * (ABNORMAL) POCT glucose (10/20/2023 3:21 AM BUILDING ADMIN) Pathologist [facility] Glucose, POC 156(H) 70 - 140 mg/dL [facility] Comment: For Glucose values <35 mg/dl when Hematocrit is >60 mg/dl,the test may not accurately detect significant hypoglycemia,and testing in the Laboratory should be considered if clinically indicated. Blood 10/20/2023 3:21 AM BUILDING ADMIN 10/20/2023 3:21 AM BUILDING ADMIN Jaqueline Valero MD LAB POCT ORDERABLES - APRIL CE Final Result Performing Organization Address [facility] Co de Phone Number [facility] [address] [place] [address] * (ABNORMAL) POCT glucose (10/20/2023 2:10 AM BUILDING ADMIN) Glucose, POC 164(H) 70 - 140 mg/dL [facility] Comment: For Glucose values <35 mg/dl when Hematocrit is >60 mg/dl,the test may not accurately detect significant hypoglycemia,and testing in the Laboratory should be considered if clinically indicated. Blood 10/20/2023 2:10 AM BUILDING ADMIN 10/20/2023 2:10 AM BUILDING ADMIN Result [facility] Jaqueline Valero MD LAB POCT ORDERABLES - APRIL CE Final Result Performing Organization Address [facility] de Phone Number [facility] [address] [place] [address] * POCT glucose (10/20/2023 12:57 AM BUILDING ADMIN) Glucose, POC 119 70 - 140 mg/dL [facility] Comment: For Glucose values <35 mg/dl when Hematocrit is >60 mg/dl,the test may not accurately detect significant hypoglycemia,and testing in the Laboratory should be considered if clinically indicated. Blood 10/20/2023 12:5 7 AM BUILDING ADMIN 10/20/2023 12:57 AM BUILDING ADMIN Jaqueline Valero MD LAB POCT ORDERABLES - APRIL CE Final Result Performing Organization Address [facility] Co de Phone Number [facility] [address] [place] [address] * eGFR (10/20/2023 12:21 AM BUILDING ADMIN) eGFR 5 mL/min/1. 73 m2 [facility] Comment: Interpretive Data Reference Interval Normal ?>/= [...] interpretive data was last reviewed 2021. Blood 10/20/2023 12:2 1 AM BUILDING ADMIN 10/20/2023 12:43 AM BUILDING ADMIN us Dawna Castellanos SENIOR CAREGIVER LAB BLOOD ORDERABLES Ann Marie l Result [facility] [address] [place] [address] * Oxyhemoglobin, central venous (10/20/2023 12:21 AM BUILDING ADMIN) Oxyhemoglobin, CV 51.0 % [facility] Comment: Interpretive Data No reference range established. Current interpretive data was last revised 2019. Blood 10/20/2023 12:2 1 AM BUILDING ADMIN 10/20/2023 12:35 AM BUILDING ADMIN Dawna Castellanos SENIOR CAREGIVER LAB BLOOD ORDERABLES Ann Marie l Result [facility] [address] [facility] [place] [address] * (ABNORMAL) Protime-INR (10/20/2023 12:21 AM BUILDING ADMIN) PT 25.5(H) 10.3 - 13.7 sec [facility] INR 2.24(H) 0.90 - 1.20 [facility] Comment: Interpretive data Oral anticoagulant therapeutic ranges: Venous thromboembolism prophylaxis or treatment: 2.0-3.0 CARDIOLOGY Standard range: 2.0-3.0 High-intensity range: 2.5-3.5 Refer to indication-specific guidelines for appropriate target ranges for prosthetic heart valve replacement. Current interpretive data was last revised on 2019. Blood 10/20/2023 12:2 1 AM BUILDING ADMIN 10/20/2023 12:43 AM BUILDING ADMIN Byron Olvera SENIOR CAREGIVER LAB BLOOD ORDERABLES Fi nal Result Performing Organization Address [facility] Co de Phone Number [facility] [address] [facility] [place] [address] * Magnesium (10/20/2023 12:21 AM BUILDING ADMIN) Pathologist [facility] Magnesium 2.4 1.4 - 2.5 mg/dL [facility] Blood 10/20/2023 12:2 1 AM BUILDING ADMIN 10/20/2023 12:43 AM BUILDING ADMIN Byron Olvera SENIOR CAREGIVER LAB BLOOD ORDERABLES Fi nal Result Performing Organization Address [facility]/ZIP Co de Phone Number [facility] [address] [place] [address] * (ABNORMAL) Calcium, ionized (10/20/2023 12:21 AM BUILDING ADMIN) Calcium, Ionized 4.38(L) 4.50 - 5.10 mg/dL [facility] Blood 10/20/2023 12:2 1 AM BUILDING ADMIN 10/20/2023 12:35 AM BUILDING ADMIN us Byron Olvera SENIOR CAREGIVER LAB BLOOD ORDERABLES nal Result [facility] [address] Department [place] [address] * (ABNORMAL) Renal function panel (10/20/2023 12:21 AM BUILDING ADMIN) Pathologist [facility] Sodium 137 135 - 145 mmol/L [facility] Potassium, pl 4.4 3.3 - 4.9 mmol/L [facility] Chloride 96(L) 97 - 110 mmol/L [facility] CO2 21(L) 22 - 32 mmol/L [facility] Anion gap 20(H) 2 - 15 mmol/L [facility] BUN 77(H) 6 - 25 mg/dL [facility] Creatinine 11.28(H) 0.80 - 1.30 mg/dL [facility] Glucose 105 70 - 199 mg/dL [facility] Comment: Interpretive Data Fasting glucose [...] interpretive data was last revised 2022. Calcium 8.9 8.5 - 10.3 mg/dL [facility] Phosphorus, pl 8.9(H) 2.3 - 4.5 mg/dL [facility] Albumin 2.8(L) 3.5 - 5.0 g/dL [facility] Blood 10/20/2023 12:2 1 AM BUILDING ADMIN 10/20/2023 12:43 AM BUILDING ADMIN Byron Olvera NP LAB BLOOD ORDERABLES Fi nal Result Performing Organization Address [facility] Co de Phone Number [facility] [address] [place] [place] [address] * (ABNORMAL) CBC without differential (10/20/2023 12:21 AM BUILDING ADMIN) [facility] WBC 8.8 3.8 - 9.9 K/cumm [facility] Hgb 8.3(L) 13.0 - 17.5 g/dL [facility] Hct 26.2(L) 38.9 - 50.3 % [facility] Plt 149(L) 150 - 400 K/cumm [facility] MPV 11.1 9.1 - 12.3 fL [facility] RBC 2.76(L) 4.30 - 5.80 M/cumm [facility] MCV 94.9 81.3 - 96.4 fL [facility] MCH 30.1 27.1 - 33.3 pg [facility] MCHC 31.7(L) 32.3 - 35.7 g/dL [facility] RDW CV 16.5(H) 11.1 - 14.9 % [facility] RDW SD 56.3(H) 35.7 - 48.1 fL [facility] NRBC abs 0.00 0.00 - 0.01 K/cumm [facility] Blood 10/20/2023 12:2 1 AM BUILDING ADMIN 10/20/2023 12:43 AM BUILDING ADMIN Byron Olvera NP LAB BLOOD ORDERABLES Fi nal Result Performing Organization Address [facility]/ZIP Co de Phone Number [facility] [address] [place], [place] [id number] * POCT glucose (10/20/2023 12:20 AM BUILDING ADMIN) Glucose, POC 111 70 - 140 mg/dL [facility] Comment: For Glucose values <35 mg/dl when Hematocrit is >60 mg/dl,the test may not accurately detect significant hypoglycemia,and testing in the Laboratory should be considered if clinically indicated. Blood 10/20/2023 12:2 0 AM BUILDING ADMIN 10/20/2023 12:20 AM BUILDING ADMIN Jaqueline Valero MD LAB POCT ORDERABLES - APRIL CE Final Result Performing Organization Address [facility] de Phone Number [facility] [address] [place] [address] * POCT glucose (10/19/2023 11:03 PM BUILDING ADMIN) Glucose, POC 111 70 - 140 mg/dL [facility] Comment: For Glucose values <35 mg/dl when Hematocrit is >60 mg/dl,the test may not accurately detect significant hypoglycemia,and testing in the Laboratory should be considered if clinically indicated. Blood 10/19/2023 11:0 3 PM BUILDING ADMIN 10/19/2023 11:03 PM BUILDING ADMIN Jaqueline Valero MD LAB POCT ORDERABLES - APRIL CE Final Result Performing Organization Address [facility] de Phone Number [facility] [address] [place] [address] * POCT glucose (10/19/2023 10:01 PM BUILDING ADMIN) Glucose, POC 120 70 - 140 mg/dL [facility] Comment: For Glucose values <35 mg/dl when Hematocrit is >60 mg/dl,the test may not accurately detect significant hypoglycemia,and testing in the Laboratory should be considered if clinically indicated. Blood 10/19/2023 10:0 1 PM BUILDING ADMIN 10/19/2023 10:01 PM BUILDING ADMIN Jaqueline Valero MD LAB POCT ORDERABLES - APRIL CE Final Result Performing Organization Address [facility]/State/ZIP Co de Phone Number [facility] [address] [facility] [place] [address] * (ABNORMAL) aPTT (10/19/2023 9:47 PM BUILDING ADMIN) Pathologist [facility] aPTT 94(H) 28 - 38 sec [facility] Comment: Interpretive Data Heparin therapeutic range: 66.0 - 100.0 seconds. Range based on correlation with therapeutic heparin activity range of 0.3 - 0.7 Units/mL. Current interpretive data was last revised on 2023. Blood 10/19/2023 9:47 PM BUILDING ADMIN 10/19/2023 9:54 PM BUILDING ADMIN Narrative [facility] - 10/19/2023 10:17 PM BUILDING ADMIN Draw STAT PTT 6 hrs after initiation of heparin infusion, draw STAT PTT 6 hours after each dose change, and every 6 hours until 2 consecutive PTTs are within therapeutic range. Once two consecutive PTT's are therapeutic (66-100 seconds), then draw PTT every AM until heparin is discontinued. us Byron Olvera NP LAB BLOOD ORDERABLES Fi nal Result Performing Organization Address [facility] Co de Phone Number [facility] [address] [place] [address] * (ABNORMAL) POCT glucose (10/19/2023 9:15 PM BUILDING ADMIN) [facility] Glucose, POC 143(H) 70 - 140 mg/dL [facility] Comment: For Glucose values <35 mg/dl when Hematocrit is >60 mg/dl,the test may not accurately detect significant hypoglycemia,and testing in the Laboratory should be considered if clinically indicated. Blood 10/19/2023 9:15 PM BUILDING ADMIN 10/19/2023 9:15 PM BUILDING ADMIN Jaqueline Valero MD LAB POCT ORDERABLES - APRIL CE Final Result Performing Organization Address [facility] Co de Phone Number [facility] [address] [facility] [place] [address] * (ABNORMAL) POCT glucose (10/19/2023 8:12 PM BUILDING ADMIN) Glucose, POC 156(H) 70 - 140 mg/dL [facility] Comment: For Glucose values <35 mg/dl when Hematocrit is >60 mg/dl,the test may not accurately detect significant hypoglycemia,and testing in the Laboratory should be considered if clinically indicated. Blood 10/19/2023 8:12 PM BUILDING ADMIN 10/19/2023 8:12 PM BUILDING ADMIN Jaqueline Valero MD LAB POCT ORDERABLES - APRIL CE Final Result Performing Organization Address [facility] Co de Phone Number [facility] [address] [facility] [place] [address] * POCT glucose (10/19/2023 6:13 PM BUILDING ADMIN) Glucose, POC 94 70 - 140 mg/dL [facility] Comment: For Glucose values <35 mg/dl when Hematocrit is >60 mg/dl,the test may not accurately detect significant hypoglycemia,and testing in the Laboratory should be considered if clinically indicated. Blood 10/19/2023 6:13 PM BUILDING ADMIN 10/19/2023 6:13 PM BUILDING ADMIN Jaqueline Valero MD LAB POCT ORDERABLES - APRIL CE Final Result Performing Organization Address [facility] Co de Phone Number [facility] [address] [facility] [place] [address] * POCT glucose (10/19/2023 5:24 PM BUILDING ADMIN) Glucose, POC 90 70 - 140 mg/dL [facility] Comment: For Glucose values <35 mg/dl when Hematocrit is >60 mg/dl,the test may not accurately detect significant hypoglycemia,and testing in the Laboratory should be considered if clinically indicated. Blood 10/19/2023 5:24 PM BUILDING ADMIN 10/19/2023 5:24 PM BUILDING ADMIN us Jaqueline Valero MD LAB POCT ORDERABLES - APRIL CE Final Result [facility] [address] [place] [address] * XR Chest 1 View (10/19/2023 4:29 PM BUILDING ADMIN) Anatomical Region Laterality Modality Body, Chest N/A Computed Radiogr aphy 10/19/2023 4:32 PM BUILDING ADMIN Impressions 10/19/2023 4:32 PM BUILDING ADMIN Comparison made to radiograph 10/19/2023. Right internal jugular approach central venous catheter tip at the superior cavoatrial junction. ??Median sternotomy wires in place in similar alignment. ??Mediastinal drains in place. ??Interval removal of the left thoracotomy tube. Left basilar atelectasis with possible small left pleural effusion. No pneumothorax. ??Fluid insinuates along the right minor fissure. Cardiomediastinal silhouette is stably enlarged. Electronically signed by: Trace Barrow M.D. Narrative 10/19/2023 4:32 PM BUILDING ADMIN EXAMINATION: XR CHEST 1 VIEW HISTORY: ??Chest tube removal Procedure Note Trace Barrow MD - 10/19/2023 EXAMINATION: XR CHEST 1 VIEW HISTORY: Chest tube removal IMPRESSION: Comparison made to radiograph 10/19/2023. Right internal jugular approach central venous catheter tip at the superior cavoatrial junction. Median sternotomy wires in place in similar alignment. Mediastinal drains in place. Interval removal of the left thoracotomy tube. Left basilar atelectasis with possible small left pleural effusion. No pneumothorax. Fluid insinuates along the right minor fissure. Cardiomediastinal silhouette is stably enlarged. Electronically signed by: Trace Barrow M.D. Dawna Castellanos SENIOR CAREGIVER IMG XR PROCEDURES Final R esult * POCT glucose (10/19/2023 4:25 PM BUILDING ADMIN) Glucose, POC 113 70 - 140 mg/dL [facility] Comment: For Glucose values <35 mg/dl when Hematocrit is >60 mg/dl,the test may not accurately detect significant hypoglycemia,and testing in the Laboratory should be considered if clinically indicated. Blood 10/19/2023 4:25 PM BUILDING ADMIN 10/19/2023 4:25 PM BUILDING ADMIN Jaqueline Valero MD LAB POCT ORDERABLES - APRIL CE Final Result Performing Organization Address [facility] de Phone Number [facility] [address] [place] [address] * ECG 12 lead (10/19/2023 3:21 PM BUILDING ADMIN) 10/19/2023 3:21 PM BUILDING ADMIN Narrative [facility] - 10/20/2023 9:37 AM BUILDING ADMIN Vent Rate: 78 bpm RR Interval: 769 msec GA Interval: 264 msec QRS Duration: 145 msec QT Interval: 426 msec QTC Interval: 459 msec P-R-T [place]: 47 - -19 - 115 degrees IMPRESSION: PROBABLE SINUS RHYTHM WITH FIRST DEGREE AV BLOCK FREQUENT SUPRAVENTRICULAR PREMATURE COMPLEXES IN A BIGEMINAL PATTERN INTRAVENTRICULAR CONDUCTION DELAY NONSPECIFIC T-WAVE CHANGES ABNORMAL ECG Electronically Signed By: Abelardo Randle MD Dawna Castellanos SENIOR CAREGIVER ECG ORDERABLES Final Res ult Performing Organization Address [facility] de Phone Number [facility] [employer] [facility] * XR Kub (10/19/2023 2:49 PM BUILDING ADMIN) Anatomical Region Laterality Modality Body, Abdomen N/A Computed Radiogr aphy 10/19/2023 3:00 PM BUILDING ADMIN Impressions 10/19/2023 3:00 PM BUILDING ADMIN FINDINGS/IMPRESSION: Postsurgical changes in the chest. ??Epicardial pacer wires overlie the abdomen and chest. ??Chest tube/mediastinal drains overlie the abdomen. ??Nguyen catheter superimposes the expected location of the urinary bladder. There is no dilatation of small or large bowel seen, although exam is limited secondary to body habitus. Electronically signed by: DO Luis Parker 10/19/2023 3:00 PM BUILDING ADMIN EXAM: ??XR KUB, 10/19/2023 1:50 PM HISTORY: vomiting COMPARISON: 10/18/2023 Procedure Note Nona Hebert DO - 10/19/2023 EXAM: XR KUB, 10/19/2023 1:50 PM HISTORY: vomiting COMPARISON: 10/18/2023 IMPRESSION: FINDINGS/IMPRESSION: Postsurgical changes in the chest. Epicardial pacer wires overlie the abdomen and chest. Chest tube/mediastinal drains overlie the abdomen. Nguyen catheter superimposes the expected location of the urinary bladder. There is no dilatation of small or large bowel seen, although exam is limited secondary to body habitus. Electronically signed by: Nona Carrillo DO Kirsten Burns MD IMG XR PROCEDURES Final Result * (ABNORMAL) aPTT (10/19/2023 2:44 PM BUILDING ADMIN) aPTT 59(H) 28 - 38 sec [facility] Comment: Interpretive Data Heparin therapeutic range: 66.0 - 100.0 seconds. Range based on correlation with therapeutic heparin activity range of 0.3 - 0.7 Units/mL. Current interpretive data was last revised on 2023. Blood 10/19/2023 2:44 PM BUILDING ADMIN 10/19/2023 2:48 PM BUILDING ADMIN Narrative [facility] - 10/19/2023 3:02 PM BUILDING ADMIN Draw STAT PTT 6 hrs after initiation of heparin infusion, draw STAT PTT 6 hours after each dose change, and every 6 hours until 2 consecutive PTTs are within therapeutic range. Once two consecutive PTT's are therapeutic (66-100 seconds), then draw PTT every AM until heparin is discontinued. Byron Olvera NP LAB BLOOD ORDERABLES [facility] Result [facility] [address] Department [place] [address] * (ABNORMAL) Hepatic function panel (10/19/2023 2:44 PM BUILDING ADMIN) Pathologist [facility] Bilirubin, total 0.3 0.1 - 1.2 mg/dL [facility] Bilirubin, direct <0.2 0.1 - 0.3 mg/dL [facility] Protein, pl 5.2(L) 6.5 - 8.5 g/dL [facility] Albumin 3.0(L) 3.5 - 5.0 g/dL [facility] Alk phos 104 40 - 130 Units/L [facility] ALT 9 7 - 55 Units/L [facility] AST 39 10 - 50 Units/L [facility] Blood 10/19/2023 2:44 PM BUILDING ADMIN 10/19/2023 2:48 PM BUILDING ADMIN Kirsten Burns MD LAB BLOOD ORDERABLES Fin al Result Performing Organization Address [facility] Co de Phone Number [facility] [address] [facility] [place] [address] * (ABNORMAL) Lipase (10/19/2023 2:44 PM BUILDING ADMIN) [facility] Lipase 7(L) 10 - 99 Units/L [facility] Blood 10/19/2023 2:44 PM BUILDING ADMIN 10/19/2023 2:48 PM BUILDING ADMIN Result [facility] Kirsten Burns MD LAB BLOOD ORDERABLES Fin al Result Performing Organization Address [facility] Co de Phone Number [facility] [address] [facility] [place] [address] * (ABNORMAL) Amylase (10/19/2023 2:44 PM BUILDING ADMIN) [facility] Amylase <3(L) 30 - 99 Units/L [facility] Blood 10/19/2023 2:44 PM BUILDING ADMIN 10/19/2023 2:48 PM BUILDING ADMIN Result [facility] Kirsten Burns MD LAB BLOOD ORDERABLES Fin al Result Performing Organization Address [facility] Co de Phone Number [facility] [address] [facility] [place] [address] * (ABNORMAL) POCT glucose (10/19/2023 2:40 PM BUILDING ADMIN) Glucose, POC 195(H) 70 - 140 mg/dL [facility] Comment: For Glucose values <35 mg/dl when Hematocrit is >60 mg/dl,the test may not accurately detect significant hypoglycemia,and testing in the Laboratory should be considered if clinically indicated. Blood 10/19/2023 2:40 PM BUILDING ADMIN 10/19/2023 2:40 PM BUILDING ADMIN Jaqueline Valero MD LAB POCT ORDERABLES - APRIL CE Final Result Performing Organization Address [facility] Co de Phone Number [facility] [address] [facility] [place] [address] * POCT glucose (10/19/2023 12:25 PM BUILDING ADMIN) Glucose, POC 114 70 - 140 mg/dL [facility] Comment: For Glucose values <35 mg/dl when Hematocrit is >60 mg/dl,the test may not accurately detect significant hypoglycemia,and testing in the Laboratory should be considered if clinically indicated. Blood 10/19/2023 12:2 5 PM BUILDING ADMIN 10/19/2023 12:25 PM BUILDING ADMIN Jaqueline Valero MD LAB POCT ORDERABLES - APRIL CE Final Result [facility] [address] [place] [address] * POCT glucose (10/19/2023 11:12 AM BUILDING ADMIN) Glucose, POC 116 70 - 140 mg/dL [facility] Comment: For Glucose values <35 mg/dl when Hematocrit is >60 mg/dl,the test may not accurately detect significant hypoglycemia,and testing in the Laboratory should be considered if clinically indicated. Blood 10/19/2023 11:1 2 AM BUILDING ADMIN 10/19/2023 11:12 AM BUILDING ADMIN Jaqueline Valero MD LAB POCT ORDERABLES - APRIL CE Final Result Performing Organization Address [facility] Co de Phone Number [facility] [address] [facility] [place] [address] * (ABNORMAL) POCT glucose (10/19/2023 10:54 AM BUILDING ADMIN) Glucose, POC 57(L) 70 - 140 mg/dL [facility] Comment: For Glucose values <35 mg/dl when Hematocrit is >60 mg/dl,the test may not accurately detect significant hypoglycemia,and testing in the Laboratory should be considered if clinically indicated. Blood 10/19/2023 10:5 4 AM BUILDING ADMIN 10/19/2023 10:54 AM BUILDING ADMIN Jaqueline Valero MD LAB POCT ORDERABLES - APRIL CE Final Result Performing Organization Address [facility] de Phone Number [facility] [address] [facility] [place] [address] * POCT glucose (10/19/2023 9:04 AM BUILDING ADMIN) Glucose, POC 82 70 - 140 mg/dL [facility] Comment: For Glucose values <35 mg/dl when Hematocrit is >60 mg/dl,the test may not accurately detect significant hypoglycemia,and testing in the Laboratory should be considered if clinically indicated. Blood 10/19/2023 9:04 AM BUILDING ADMIN 10/19/2023 9:04 AM BUILDING ADMIN Jaqueline Valero MD LAB POCT ORDERABLES - APRIL CE Final Result Performing Organization Address [facility] Co de Phone Number [facility] [address] [place] [address] * (ABNORMAL) aPTT (10/19/2023 8:58 AM BUILDING ADMIN) aPTT 46(H) 28 - 38 sec [facility] Comment: Interpretive Data Heparin therapeutic range: 66.0 - 100.0 seconds. Range based on correlation with therapeutic heparin activity range of 0.3 - 0.7 Units/mL. Current interpretive data was last revised on 2023. Blood 10/19/2023 8:58 AM BUILDING ADMIN 10/19/2023 9:28 AM BUILDING ADMIN Narrative [facility] - 10/19/2023 9:51 AM BUILDING ADMIN Draw STAT PTT 6 hrs after initiation of heparin infusion, draw STAT PTT 6 hours after each dose change, and every 6 hours until 2 consecutive PTTs are within therapeutic range. Once two consecutive PTT's are therapeutic (66-100 seconds), then draw PTT every AM until heparin is discontinued. Byron Olvera SENIOR CAREGIVER LAB BLOOD ORDERABLES Fi nal Result Performing Organization Address [facility] Co de Phone Number [facility] [address] [place] [address] * Oxyhemoglobin, central venous (10/19/2023 8:58 AM BUILDING ADMIN) [facility] Oxyhemoglobin, CV 70.1 % [facility] Comment: Interpretive Data No reference range established. Current interpretive data was last revised 2019. Blood 10/19/2023 8:58 AM BUILDING ADMIN 10/19/2023 9:16 AM BUILDING ADMIN Narrative [facility] - 10/19/2023 9:17 AM BUILDING ADMIN While on [facility] Dawna Castellanos SENIOR CAREGIVER LAB BLOOD ORDERABLES Ann Marie l Result Performing Organization Address City/[facility]/ZIP Co de Phone Number [facility] [address] [place] [address] * (ABNORMAL) POCT glucose (10/19/2023 7:19 AM BUILDING ADMIN) [facility] Glucose, POC 150(H) 70 - 140 mg/dL [facility] Comment: For Glucose values <35 mg/dl when Hematocrit is >60 mg/dl,the test may not accurately detect significant hypoglycemia,and testing in the Laboratory should be considered if clinically indicated. Blood 10/19/2023 7:19 AM BUILDING ADMIN 10/19/2023 7:19 AM BUILDING ADMIN Jaqueline Valero MD LAB POCT ORDERABLES - APRIL CE Final Result Performing Organization Address [facility] Co de Phone Number [facility] [address] Department [place], [place] [id number] * Lactate (10/19/2023 7:09 AM BUILDING ADMIN) Lactate 1.4 0.7 - 2.0 mmol/L [facility] Blood 10/19/2023 7:09 AM BUILDING ADMIN 10/19/2023 7:22 AM BUILDING ADMIN Dawna Castellanos SENIOR CAREGIVER LAB BLOOD ORDERABLES Ann Marie l Result Performing Organization Address [facility] Co de Phone Number [facility] [address] Department [place], [place] [phone] * Oxyhemoglobin, central venous (10/19/2023 7:09 AM BUILDING ADMIN) Oxyhemoglobin, CV 96.5 % [facility] Comment: Interpretive Data No reference range established. Current interpretive data was last revised 2019. Blood 10/19/2023 7:09 AM BUILDING ADMIN 10/19/2023 7:22 AM BUILDING ADMIN Narrative [facility] - 10/19/2023 7:24 AM BUILDING ADMIN While on [facility] Dawna Castellanos SENIOR CAREGIVER LAB BLOOD ORDERABLES Ann Marie l Result Performing Organization Address [facility] Co de Phone Number [facility] [address] Department of [place], [place] [phone] * Critical Care (10/19/2023 6:57 AM BUILDING ADMIN) Narrative Kirsten Burns MD - 10/19/2023 6:57 AM BUILDING ADMIN Dawna Castellanos NP ? 10/19/2023 ??2:12 PM Critical Care Performed by: Dawna Castellanos NP Authorized by: Dawna Castellanos NP ?? CRITICAL CARE: ??Team: ??[facility] ??Shift: ??AM ??Level of Billing: ??Critical Care ??My time spent with this patient was 90 minutes: Critical Provider Statement: I have seen and examined the patient on this day of service. I have reviewed and confirmed the history, physical exam, laboratory and radiologic data as documented in the signed ICU note. I have reviewed and discussed my treatment plan with the ICU team and other medical/as400 consultant staff, making frequent assessments and decisions regarding this patient's complex medical care. Critical Care time was exclusive of time spent performing separately billed procedures, treating other patients, and teaching. This time was in addition to and separate from critical care provided by other practitioners in my group on this day of service. Critical Care was necessary to treat or prevent imminent or life-threatening deterioration of the following conditions: ? I spent time documenting in the medical record, I spent time discussing the management of this critically ill patient with consultants and the medical staff and I spent time reviewing and interpreting data from bedside monitors, laboratory results, and imaging Dawna Castellanos NP IN CLINIC/BEDSIDE ORDERAB LES Final Result * (ABNORMAL) POCT glucose (10/19/2023 6:57 AM BUILDING ADMIN) [facility] Signature Glucose, POC 147(H) 70 - 140 mg/dL [facility] Comment: For Glucose values <35 mg/dl when Hematocrit is >60 mg/dl,the test may not accurately detect significant hypoglycemia,and testing in the Laboratory should be considered if clinically indicated. Blood 10/19/2023 6:57 AM BUILDING ADMIN 10/19/2023 6:57 AM BUILDING ADMIN Jaqueline Valero MD LAB POCT ORDERABLES - APRIL CE Final Result [facility] [address] [place] [address] * XR Chest 1 View - Portable - in AM (10/19/2023 6:27 AM BUILDING ADMIN) Anatomical Region Laterality Modality Body, Chest N/A Computed Radiogr aphy 10/19/2023 7:36 AM BUILDING ADMIN Impressions 10/19/2023 7:36 AM BUILDING ADMIN Comparison is made to 10/10/2023. ??Right internal jugular catheter tip overlies the superior vena cava, unchanged in position. ??The Lincoln-Daniel catheter has been removed. ??Sternotomy wires and replaced aortic valve are unchanged in position. ??There is a mediastinal drain and left basilar thoracostomy tube. ??A pericardial drain is unchanged in position. There is a small left pleural effusion with left basilar retrocardiac atelectasis. ??Fluid is seen within the right minor fissure. ??There is mild right basilar atelectasis. ??No pneumothorax. ??Stable heart size. Electronically signed by: John Bruno M.D. Narrative 10/19/2023 7:36 AM BUILDING ADMIN EXAMINATION: Chest 1 view frontal HISTORY: Shortness of breath Procedure Note John Bruno MD - 10/19/2023 EXAMINATION: Chest 1 view frontal HISTORY: Shortness of breath IMPRESSION: Comparison is made to 10/10/2023. Right internal jugular catheter tip overlies the superior vena cava, unchanged in position. The Lincoln-Daniel catheter has been removed. Sternotomy wires and replaced aortic valve are unchanged in position. There is a mediastinal drain and left basilar thoracostomy tube. A pericardial drain is unchanged in position. There is a small left pleural effusion with left basilar retrocardiac atelectasis. Fluid is seen within the right minor fissure. There is mild right basilar atelectasis. No pneumothorax. Stable heart size. Electronically signed by: John Bruno M.D. Byron Olvera NP IMG XR PROCEDURES Final Result * (ABNORMAL) POCT glucose (10/19/2023 6:06 AM BUILDING ADMIN) Glucose, POC 163(H) 70 - 140 mg/dL [facility] Comment: For Glucose values <35 mg/dl when Hematocrit is >60 mg/dl,the test may not accurately detect significant hypoglycemia,and testing in the Laboratory should be considered if clinically indicated. Blood 10/19/2023 6:06 AM BUILDING ADMIN 10/19/2023 6:06 AM BUILDING ADMIN Jaqueline Valero MD LAB POCT ORDERABLES - APRIL CE Final Result Performing Organization Address [facility] de Phone Number [facility] [address] [facility] [place] [address] * (ABNORMAL) POCT glucose (10/19/2023 5:10 AM BUILDING ADMIN) Glucose, POC 191(H) 70 - 140 mg/dL [facility] Comment: For Glucose values <35 mg/dl when Hematocrit is >60 mg/dl,the test may not accurately detect significant hypoglycemia,and testing in the Laboratory should be considered if clinically indicated. Blood 10/19/2023 5:10 AM BUILDING ADMIN 10/19/2023 5:10 AM BUILDING ADMIN Jaqueline Valero MD LAB POCT ORDERABLES - APRIL CE Final Result Performing Organization Address [facility] de Phone Number [facility] [address] [facility] [place] [address] * (ABNORMAL) aPTT (10/19/2023 4:14 AM BUILDING ADMIN) aPTT 50(H) 28 - 38 sec [facility] Comment: Interpretive Data Heparin therapeutic range: 66.0 - 100.0 seconds. Range based on correlation with therapeutic heparin activity range of 0.3 - 0.7 Units/mL. Current interpretive data was last revised on 2023. Blood 10/19/2023 4:14 AM BUILDING ADMIN 10/19/2023 4:27 AM BUILDING ADMIN Narrative [facility] - 10/19/2023 5:01 AM BUILDING ADMIN Draw STAT PTT 6 hrs after initiation of heparin infusion, draw STAT PTT 6 hours after each dose change, and every 6 hours until 2 consecutive PTTs are within therapeutic range. Once two consecutive PTT's are therapeutic (46-70 seconds), then draw PTT every AM until heparin is discontinued. Jaqueline Valero MD LAB BLOOD ORDERABLES Final Result Performing Organization Address [facility] Co de Phone Number [facility] [address] [facility] [place] [address] * (ABNORMAL) POCT glucose (10/19/2023 4:03 AM BUILDING ADMIN) Glucose, POC 175(H) 70 - 140 mg/dL [facility] Comment: For Glucose values <35 mg/dl when Hematocrit is >60 mg/dl,the test may not accurately detect significant hypoglycemia,and testing in the Laboratory should be considered if clinically indicated. Blood 10/19/2023 4:03 AM BUILDING ADMIN 10/19/2023 4:03 AM BUILDING ADMIN Result [facility] Jaqueline Valero MD LAB POCT ORDERABLES - APRIL CE Final Result Performing Organization Address [facility] de Phone Number [facility] [address] [facility] [place] [address] * (ABNORMAL) POCT glucose (10/19/2023 2:56 AM BUILDING ADMIN) Glucose, POC 177(H) 70 - 140 mg/dL [facility] Comment: For Glucose values <35 mg/dl when Hematocrit is >60 mg/dl,the test may not accurately detect significant hypoglycemia,and testing in the Laboratory should be considered if clinically indicated. Blood 10/19/2023 2:56 AM BUILDING ADMIN 10/19/2023 2:56 AM BUILDING ADMIN Result [facility] Jaqueline Valero MD LAB POCT ORDERABLES - APRIL CE Final Result Performing Organization Address [facility] Co de Phone Number [facility] [address] [facility] [place] [address] * eGFR (10/19/2023 2:11 AM BUILDING ADMIN) eGFR 5 mL/min/1. 73 m2 [facility] Comment: Interpretive Data Reference Interval Normal ?>/= [...] interpretive data was last reviewed 2021. Blood 10/19/2023 2:1 1 AM BUILDING ADMIN 10/19/2023 2:23 AM BUILDING ADMIN us Dawna Castellanos SENIOR CAREGIVER LAB BLOOD ORDERABLES Ann Marie l Result [facility] [address] Department [place] [address] * (ABNORMAL) Blood gas, arterial (10/19/2023 2:11 AM BUILDING ADMIN) pH, Art 7.28(L) 7.35 - 7.45 [facility] PCO2, Arterial 44 35 - 45 mmHg [facility] PO2, Arterial 130(H) 83 - 108 mmHg [facility] HCO3 Art (Calculated) 21 20 - 30 mmol/L [facility] BE, art -6 mmol/L [facility] Comment: Interpretive Data No Reference Range Established Current Interpretive Data was last revised on 2017 O2 Sat Art (Calculated) 99(H) 94 - 98 % [facility] Blood 10/19/2023 2:11 AM BUILDING ADMIN 10/19/2023 2:15 AM BUILDING ADMIN Gamal Fox SENIOR CAREGIVER LAB BLOOD ORDERABLES Final Result Performing Organization Address [facility]/ZIP Co de Phone Number [facility] [address] [facility] [place], [place] [id number] * Oxyhemoglobin, central venous (10/19/2023 2:11 AM BUILDING ADMIN) Oxyhemoglobin, CV 79.0 % [facility] Comment: Interpretive Data No reference range established. Current interpretive data was last revised 2019. Blood 10/19/2023 2:11 AM BUILDING ADMIN 10/19/2023 2:15 AM BUILDING ADMIN Dawna Castellanos SENIOR CAREGIVER LAB BLOOD ORDERABLES Ann Marie l Result Performing Organization Address [facility] Co de Phone Number [facility] [address] [place] [place] [address] * Protime-INR (10/19/2023 2:11 AM BUILDING ADMIN) PT 12.8 10.3 - 13.7 sec [facility] INR 1.12 0.90 - 1.20 [facility] Comment: Interpretive data Oral anticoagulant therapeutic ranges: Venous thromboembolism prophylaxis or treatment: 2.0-3.0 CARDIOLOGY Standard range: 2.0-3.0 High-intensity range: 2.5-3.5 Refer to indication-specific guidelines for appropriate target ranges for prosthetic heart valve replacement. Current interpretive data was last revised on 2019. Blood 10/19/2023 2:11 AM BUILDING ADMIN 10/19/2023 2:23 AM BUILDING ADMIN Byron Olvera SENIOR CAREGIVER LAB BLOOD ORDERABLES Fi nal Result Performing Organization Address [facility] Co de Phone Number [facility] [address] [facility] [place] [address] * Magnesium (10/19/2023 2:11 AM BUILDING ADMIN) Magnesium 2.5 1.4 - 2.5 mg/dL [facility] Blood 10/19/2023 2:11 AM BUILDING ADMIN 10/19/2023 2:23 AM BUILDING ADMIN Byron Olvera SENIOR CAREGIVER LAB BLOOD ORDERABLES Fi nal Result Performing Organization Address [facility] Co de Phone Number [facility] [address] [facility] [place] [address] * Calcium, ionized (10/19/2023 2:11 AM BUILDING ADMIN) Calcium, Ionized 4.69 4.50 - 5.10 mg/dL [facility] Blood 10/19/2023 2:11 AM BUILDING ADMIN 10/19/2023 2:15 AM BUILDING ADMIN Byron Olvera SENIOR CAREGIVER LAB BLOOD ORDERABLES Fi nal Result Performing Organization Address [facility] Co de Phone Number [facility] [address] [facility] [place] [address] * (ABNORMAL) Renal function panel (10/19/2023 2:11 AM BUILDING ADMIN) Sodium 138 135 - 145 mmol/L [facility] Potassium, pl 4.4 3.3 - 4.9 mmol/L [facility] Chloride 97 97 - 110 mmol/L [facility] CO2 21(L) 22 - 32 mmol/L [facility] Anion gap 20(H) 2 - 15 mmol/L [facility] BUN 74(H) 6 - 25 mg/dL [facility] Creatinine 10.85(H) 0.80 - 1.30 mg/dL [facility] Glucose 188 70 - 199 mg/dL [facility] Comment: Interpretive Data Fasting glucose [...] interpretive data was last revised 2022. Calcium 9.0 8.5 - 10.3 mg/dL [facility] Phosphorus, pl 8.3(H) 2.3 - 4.5 mg/dL [facility] Albumin 3.1(L) 3.5 - 5.0 g/dL [facility] Blood 10/19/2023 2:11 AM BUILDING ADMIN 10/19/2023 2:23 AM BUILDING ADMIN us Byron Olvera NP LAB BLOOD ORDERABLES nal Result [facility] [address] Department [place] [address] * (ABNORMAL) CBC without differential (10/19/2023 2:11 AM BUILDING ADMIN) WBC 8.9 3.8 - 9.9 K/cumm [facility] Hgb 8.7(L) 13.0 - 17.5 g/dL [facility] Hct 27.4(L) 38.9 - 50.3 % [facility] Plt 157 150 - 400 K/cumm [facility] MPV 11.0 9.1 - 12.3 fL [facility] RBC 2.91(L) 4.30 - 5.80 M/cumm [facility] MCV 94.2 81.3 - 96.4 fL [facility] MCH 29.9 27.1 - 33.3 pg [facility] MCHC 31.8(L) 32.3 - 35.7 g/dL [facility] RDW CV 16.4(H) 11.1 - 14.9 % [facility] RDW SD 55.0(H) 35.7 - 48.1 fL [facility] NRBC abs 0.00 0.00 - 0.01 K/cumm [facility] Blood 10/19/2023 2:11 AM BUILDING ADMIN 10/19/2023 2:23 AM BUILDING ADMIN us Byron Olvera SENIOR CAREGIVER LAB BLOOD ORDERABLES Fi nal Result Performing Organization Address [facility]/ZIP Co de Phone Number [facility] [address] [place], [place] [phone] * (ABNORMAL) POCT glucose (10/19/2023 2:07 AM BUILDING ADMIN) Glucose, POC 171(H) 70 - 140 mg/dL [facility] Comment: For Glucose values <35 mg/dl when Hematocrit is >60 mg/dl,the test may not accurately detect significant hypoglycemia,and testing in the Laboratory should be considered if clinically indicated. Blood 10/19/2023 2:07 AM BUILDING ADMIN 10/19/2023 2:07 AM BUILDING ADMIN us Jaqueline Valero MD LAB POCT ORDERABLES - APRIL CE Final Result Performing Organization Address [facility]/ZIP Co de Phone Number [facility] [address] [place] [address] * (ABNORMAL) POCT glucose (10/19/2023 12:01 AM BUILDING ADMIN) Glucose, POC 144(H) 70 - 140 mg/dL [facility] Comment: For Glucose values <35 mg/dl when Hematocrit is >60 mg/dl,the test may not accurately detect significant hypoglycemia,and testing in the Laboratory should be considered if clinically indicated. Blood 10/19/2023 12:0 1 AM BUILDING ADMIN 10/19/2023 12:01 AM BUILDING ADMIN Jaqueline Valero MD LAB POCT ORDERABLES - APRIL CE Final Result Performing Organization Address [facility] Co de Phone Number [facility] [address] [facility] [place] [address] * POCT glucose (10/18/2023 11:03 PM BUILDING ADMIN) Glucose, POC 106 70 - 140 mg/dL [facility] Comment: For Glucose values <35 mg/dl when Hematocrit is >60 mg/dl,the test may not accurately detect significant hypoglycemia,and testing in the Laboratory should be considered if clinically indicated. Blood 10/18/2023 11:0 3 PM BUILDING ADMIN 10/18/2023 11:03 PM BUILDING ADMIN Jaqueline Valero MD LAB POCT ORDERABLES - APRIL CE Final Result Performing Organization Address [facility] de Phone Number [facility] [address] [facility] [place] [address] * POCT glucose (10/18/2023 10:11 PM BUILDING ADMIN) Glucose, POC 114 70 - 140 mg/dL [facility] Comment: For Glucose values <35 mg/dl when Hematocrit is >60 mg/dl,the test may not accurately detect significant hypoglycemia,and testing in the Laboratory should be considered if clinically indicated. Blood 10/18/2023 10:1 1 PM BUILDING ADMIN 10/18/2023 10:11 PM BUILDING ADMIN Jaqueline Valero MD LAB POCT ORDERABLES - APRIL CE Final Result Performing Organization Address [facility] Co de Phone Number [facility] [address] [facility] [place], [place] [id number] * (ABNORMAL) aPTT (10/18/2023 9:21 PM BUILDING ADMIN) aPTT 43(H) 28 - 38 sec [facility] Comment: Interpretive Data Heparin therapeutic range: 66.0 - 100.0 seconds. Range based on correlation with therapeutic heparin activity range of 0.3 - 0.7 Units/mL. Current interpretive data was last revised on 2023. Blood 10/18/2023 9:21 PM BUILDING ADMIN 10/18/2023 9:25 PM BUILDING ADMIN [facility]ative [facility] - 10/18/2023 9:42 PM BUILDING ADMIN Draw STAT PTT 6 hrs after initiation of heparin infusion, draw STAT PTT 6 hours after each dose change, and every 6 hours until 2 consecutive PTTs are within therapeutic range. Once two consecutive PTT's are therapeutic (46-70 seconds), then draw PTT every AM until heparin is discontinued. Jaqueline Valero MD LAB BLOOD ORDERABLES Final Result Performing Organization Address [facility] Co de Phone Number [facility] [address] [place], [place] [id number] * POCT glucose (10/18/2023 9:19 PM BUILDING ADMIN) Glucose, POC 120 70 - 140 mg/dL [facility] Comment: For Glucose values <35 mg/dl when Hematocrit is >60 mg/dl,the test may not accurately detect significant hypoglycemia,and testing in the Laboratory should be considered if clinically indicated. Blood 10/18/2023 9:19 PM BUILDING ADMIN 10/18/2023 9:19 PM BUILDING ADMIN Jaqueline Valero MD LAB POCT ORDERABLES - APRIL CE Final Result Performing Organization Address [facility] Co de Phone Number [facility] [address] [facility] [place], [place] [id number] * POCT glucose (10/18/2023 8:37 PM BUILDING ADMIN) Glucose, POC 120 70 - 140 mg/dL [facility] Comment: For Glucose values <35 mg/dl when Hematocrit is >60 mg/dl,the test may not accurately detect significant hypoglycemia,and testing in the Laboratory should be considered if clinically indicated. Blood 10/18/2023 8:37 PM BUILDING ADMIN 10/18/2023 8:37 PM BUILDING ADMIN Jaqueline Valero MD LAB POCT ORDERABLES - APRIL CE Final Result Performing Organization Address [facility] Co de Phone Number [facility] [address] [place] [address] * (ABNORMAL) Blood gas, arterial (10/18/2023 8:34 PM BUILDING ADMIN) pH, Art 7.27(L) 7.35 - 7.45 [facility] PCO2, Arterial 46(H) 35 - 45 mmHg [facility] PO2, Arterial 88 83 - 108 mmHg [facility] HCO3 Art (Calculated) 21 20 - 30 mmol/L [facility] BE, art -6 mmol/L [facility] Comment: Interpretive Data No Reference Range Established Current Interpretive Data was last revised on 2017 O2 Sat Art (Calculated) 95 94 - 98 % [facility] Blood 10/18/2023 8:34 PM BUILDING ADMIN 10/18/2023 8:40 PM BUILDING ADMIN Gamal Fox NP LAB BLOOD ORDERABLES Final Result Performing Organization Address [facility] Co de Phone Number [facility] [address] [place] [address] * Critical Care (10/18/2023 6:49 PM BUILDING ADMIN) Narrative Kirsten Burns MD - 10/18/2023 6:49 PM BUILDING ADMIN Gamal Fox NP ? 10/19/2023 ??3:18 AM Critical Care Performed by: Gamal Fox NP Authorized by: Gamal Fox NP ?? CRITICAL CARE: ??Team: ??[facility] ??Shift: ??PM ??Level of Billing: ??Critical Care ??My time spent with this patient was 50 minutes: Critical Provider Statement: I have seen and examined the patient on this day of service. I have reviewed and confirmed the history, physical exam, laboratory and radiologic data as documented in the signed ICU note. I have reviewed and discussed my treatment plan with the ICU team and other medical/as400 consultant staff, making frequent assessments and decisions regarding this patient's complex medical care. Critical Care time was exclusive of time spent performing separately billed procedures, treating other patients, and teaching. This time was in addition to and separate from critical care provided by other practitioners in my group on this day of service. Critical Care was necessary to treat or prevent imminent or life-threatening deterioration of the following conditions: ? I spent time reviewing and interpreting data from bedside monitors, laboratory results, and imaging, I spent time documenting in the medical record and I spent time discussing the management of this critically ill patient with consultants and the medical staff us aGmal Fox NP IN CLINIC/BEDSIDE ORDERABL ES Final Result * POCT glucose (10/18/2023 6:38 PM BUILDING ADMIN) Glucose, POC 135 70 - 140 mg/dL [facility] Comment: For Glucose values <35 mg/dl when Hematocrit is >60 mg/dl,the test may not accurately detect significant hypoglycemia,and testing in the Laboratory should be considered if clinically indicated. Blood 10/18/2023 6:38 PM BUILDING ADMIN 10/18/2023 6:38 PM BUILDING ADMIN Jaqueline Valero MD LAB POCT ORDERABLES - APRIL CE Final Result [facility] [address] [place] [address] * POCT glucose (10/18/2023 5:45 PM BUILDING ADMIN) Glucose, POC 132 70 - 140 mg/dL [facility] Comment: For Glucose values <35 mg/dl when Hematocrit is >60 mg/dl,the test may not accurately detect significant hypoglycemia,and testing in the Laboratory should be considered if clinically indicated. Blood 10/18/2023 5:45 PM BUILDING ADMIN 10/18/2023 5:45 PM BUILDING ADMIN us Jaqueline Valero MD LAB POCT ORDERABLES - APRIL CE Final Result [facility] [address] [place] [address] * XR Kub (10/18/2023 5:42 PM BUILDING ADMIN) Anatomical Region Laterality Modality Body, Abdomen N/A Computed Radiogr aphy 10/18/2023 5:50 PM BUILDING ADMIN Impressions 10/18/2023 5:50 PM BUILDING ADMIN FINDINGS/IMPRESSION: ?? Apically oriented left-sided chest tubes and mediastinal drains. Overall paucity of gas distended bowel loops within the abdomen and pelvis. ??No visualized dilated bowel loops. ??No large volume of intraperitoneal free air, although evaluation is limited with supine positioning. ??A Gnuyen catheter temperature probe is present. ??No acute osseous abnormality. Electronically signed by: Camilo Cheatham MD Narrative 10/18/2023 5:50 PM BUILDING ADMIN EXAMINATION: XR KUB HISTORY: Nausa vomiting VIEWS: AP supine abdominal radiograph. ??3 images submitted. COMPARISON: Same day chest radiograph Procedure Note Camilo Cheatham MD - 10/18/2023 EXAMINATION: XR KUB HISTORY: Nausa vomiting VIEWS: AP supine abdominal radiograph. 3 images submitted. COMPARISON: Same day chest radiograph IMPRESSION: FINDINGS/IMPRESSION: Apically oriented left-sided chest tubes and mediastinal drains. Overall paucity of gas distended bowel loops within the abdomen and pelvis. No visualized dilated bowel loops. No large volume of intraperitoneal free air, although evaluation is limited with supine positioning. A Nguyen catheter temperature probe is present. No acute osseous abnormality. Electronically signed by: Camilo Cheatham MD Kirsten Burns MD IMG XR PROCEDURES Final Result * POCT glucose (10/18/2023 4:47 PM BUILDING ADMIN) [facility] Signature Glucose, POC 138 70 - 140 mg/dL [facility] Comment: For Glucose values <35 mg/dl when Hematocrit is >60 mg/dl,the test may not accurately detect significant hypoglycemia,and testing in the Laboratory should be considered if clinically indicated. Blood 10/18/2023 4:47 PM BUILDING ADMIN 10/18/2023 4:47 PM BUILDING ADMIN Result [facility] Jaqueline Valero MD LAB POCT ORDERABLES - APRIL CE Final Result Performing Organization Address [facility] de Phone Number [facility] [address] [place] [address] * aPTT (10/18/2023 2:55 PM BUILDING ADMIN) aPTT 38 28 - 38 sec [facility] Comment: Interpretive Data Heparin therapeutic range: 66.0 - 100.0 seconds. Range based on correlation with therapeutic heparin activity range of 0.3 - 0.7 Units/mL. Current interpretive data was last revised on 2023. Blood 10/18/2023 2:55 PM BUILDING ADMIN 10/18/2023 3:16 PM BUILDING ADMIN Result [facility] Jaqeuline Valero MD LAB BLOOD ORDERABLES Final Result Performing Organization Address [facility] de Phone Number [facility] [address] [place] [address] * POCT glucose (10/18/2023 2:52 PM BUILDING ADMIN) Glucose, POC 104 70 - 140 mg/dL [facility] Comment: For Glucose values <35 mg/dl when Hematocrit is >60 mg/dl,the test may not accurately detect significant hypoglycemia,and testing in the Laboratory should be considered if clinically indicated. Blood 10/18/2023 2:52 PM BUILDING ADMIN 10/18/2023 2:52 PM BUILDING ADMIN Result [facility] Jaqueline Valero MD LAB POCT ORDERABLES - APRIL CE Final Result Performing Organization Address [facility] Co de Phone Number [facility] [address] [facility] [place] [address] * POCT glucose (10/18/2023 1:53 PM BUILDING ADMIN) Glucose, POC 87 70 - 140 mg/dL [facility] Comment: For Glucose values <35 mg/dl when Hematocrit is >60 mg/dl,the test may not accurately detect significant hypoglycemia,and testing in the Laboratory should be considered if clinically indicated. Blood 10/18/2023 1:53 PM BUILDING ADMIN 10/18/2023 1:53 PM BUILDING ADMIN Jaqueline Valero MD LAB POCT ORDERABLES - APRIL CE Final Result Performing Organization Address [facility] Co de Phone Number [facility] [address] [facility] [place] [address] * POCT glucose (10/18/2023 12:48 PM BUILDING ADMIN) Glucose, POC 83 70 - 140 mg/dL [facility] Comment: For Glucose values <35 mg/dl when Hematocrit is >60 mg/dl,the test may not accurately detect significant hypoglycemia,and testing in the Laboratory should be considered if clinically indicated. Blood 10/18/2023 12:4 8 PM BUILDING ADMIN 10/18/2023 12:48 PM BUILDING ADMIN Jaqueline Valero MD LAB POCT ORDERABLES - APRIL CE Final Result Performing Organization Address [facility] Co de Phone Number [facility] [address] [facility] [place] [address] * POCT glucose (10/18/2023 12:00 PM BUILDING ADMIN) Glucose, POC 81 70 - 140 mg/dL [facility] Comment: For Glucose values <35 mg/dl when Hematocrit is >60 mg/dl,the test may not accurately detect significant hypoglycemia,and testing in the Laboratory should be considered if clinically indicated. Blood 10/18/2023 12:0 0 PM BUILDING ADMIN 10/18/2023 12:00 PM BUILDING ADMIN Jaqueline Valero MD LAB POCT ORDERABLES - APRIL CE Final Result Performing Organization Address [facility] Co de Phone Number [facility] [address] [place] [address] * POCT glucose (10/18/2023 10:57 AM BUILDING ADMIN) Glucose, POC 76 70 - 140 mg/dL [facility] Comment: For Glucose values <35 mg/dl when Hematocrit is >60 mg/dl,the test may not accurately detect significant hypoglycemia,and testing in the Laboratory should be considered if clinically indicated. Blood 10/18/2023 10:5 7 AM BUILDING ADMIN 10/18/2023 10:57 AM BUILDING ADMIN Jaqueline Valero MD LAB POCT ORDERABLES - APRIL CE Final Result Performing Organization Address [facility] de Phone Number [facility] [address] [facility] [place] [address] * POCT glucose (10/18/2023 9:52 AM BUILDING ADMIN) Glucose, POC 92 70 - 140 mg/dL [facility] Comment: For Glucose values <35 mg/dl when Hematocrit is >60 mg/dl,the test may not accurately detect significant hypoglycemia,and testing in the Laboratory should be considered if clinically indicated. Blood 10/18/2023 9:52 AM BUILDING ADMIN 10/18/2023 9:52 AM BUILDING ADMIN Jaqueline Valero MD LAB POCT ORDERABLES - APRIL CE Final Result Performing Organization Address [facility] Co de Phone Number [facility] [address] [place] [address] * POCT glucose (10/18/2023 8:46 AM BUILDING ADMIN) Glucose, POC 115 70 - 140 mg/dL [facility] Comment: For Glucose values <35 mg/dl when Hematocrit is >60 mg/dl,the test may not accurately detect significant hypoglycemia,and testing in the Laboratory should be considered if clinically indicated. Blood 10/18/2023 8:46 AM BUILDING ADMIN 10/18/2023 8:46 AM BUILDING ADMIN Jaqueline Valero MD LAB POCT ORDERABLES - APRIL CE Final Result Performing Organization Address [facility] Co de Phone Number [facility] [address] Department [place] [address] * POCT glucose (10/18/2023 7:58 AM BUILDING ADMIN) [facility] Signature Glucose, POC 130 70 - 140 mg/dL [facility] Comment: For Glucose values <35 mg/dl when Hematocrit is >60 mg/dl,the test may not accurately detect significant hypoglycemia,and testing in the Laboratory should be considered if clinically indicated. Blood 10/18/2023 7:58 AM BUILDING ADMIN 10/18/2023 7:58 AM BUILDING ADMIN Jaqueline Valero MD LAB POCT ORDERABLES - APRIL CE Final Result Performing Organization Address [facility] de Phone Number [facility] [address] [place] [address] * Critical Care (10/18/2023 7:27 AM BUILDING ADMIN) Narrative Kirsten Burns MD - 10/18/2023 7:27 AM BUILDING ADMIN Dawna Castellanos NP ? 10/18/2023 ??2:29 PM Critical Care Performed by: Dawna Castellanos NP Authorized by: Dawna Castellanos NP ?? CRITICAL CARE: ??Team: ??[facility] CT ??Shift: ??AM ??Level of Billing: ??Critical Care ??My time spent with this patient was 90 minutes: Critical Provider Statement: I have seen and examined the patient on this day of service. I have reviewed and confirmed the history, physical exam, laboratory and radiologic data as documented in the signed ICU note. I have reviewed and discussed my treatment plan with the ICU team and other medical/as400 consultant staff, making frequent assessments and decisions regarding this patient's complex medical care. Critical Care time was exclusive of time spent performing separately billed procedures, treating other patients, and teaching. This time was in addition to and separate from critical care provided by other practitioners in my group on this day of service. Critical Care was necessary to treat or prevent imminent or life-threatening deterioration of the following conditions: ? I spent time documenting in the medical record, I spent time discussing the management of this critically ill patient with consultants and the medical staff and I spent time reviewing and interpreting data from bedside monitors, laboratory results, and imaging Dawna Castellanos SENIOR CAREGIVER IN CLINIC/BEDSIDE ORDERAB LES Final Result * (ABNORMAL) POCT glucose (10/18/2023 7:02 AM BUILDING ADMIN) Glucose, POC 169(H) 70 - 140 mg/dL [facility] Comment: For Glucose values <35 mg/dl when Hematocrit is >60 mg/dl,the test may not accurately detect significant hypoglycemia,and testing in the Laboratory should be considered if clinically indicated. Blood 10/18/2023 7:02 AM BUILDING ADMIN 10/18/2023 7:02 AM BUILDING ADMIN Result [facility] Jaqueline Valero MD LAB POCT ORDERABLES - APRIL CE Final Result Performing Organization Address [facility]/State/ZIP Co de Phone Number [facility] [address] Department of Laboratories [place], [place] [id number] * (ABNORMAL) POCT glucose (10/18/2023 6:04 AM BUILDING ADMIN) Glucose, POC 196(H) 70 - 140 mg/dL [facility] Comment: For Glucose values <35 mg/dl when Hematocrit is >60 mg/dl,the test may not accurately detect significant hypoglycemia,and testing in the Laboratory should be considered if clinically indicated. Blood 10/18/2023 6:04 AM BUILDING ADMIN 10/18/2023 6:04 AM BUILDING ADMIN Jaqueline Valero MD LAB POCT ORDERABLES - APRIL CE Final Result [facility] [address] [place] [address] * XR Chest 1 View - Portable - in AM (10/18/2023 5:38 AM BUILDING ADMIN) Anatomical Region Laterality Modality Body, Chest N/A Computed Radiogr aphy 10/18/2023 9:33 AM BUILDING ADMIN Impressions 10/18/2023 9:33 AM BUILDING ADMIN Comparison 10/17/2023 at 1:37 PM. ??Median sternotomy wires and sternal plates again seen. ??Aortic valve replacement again noted. ??Lincoln-Daniel catheter tip projects over the proximal portion of the right pulmonary artery. ??Endotracheal tube tip approximately 5 cm above the boni. ??Gastric tube courses caudal to the diaphragm. Right internal jugular central venous catheter tip overlies the superior vena cava. ??Mediastinal tube and left basilar chest tube remain in place. Lung volumes are small. ??Cardiac mediastinal silhouette stable in keeping with postoperative change. ??Increasing now moderate bibasilar opacity most compatible with atelectasis and small bilateral pleural effusions left greater than right. ??No pneumothorax seen. Electronically signed by: Ramirez Blake M.D. Narrative 10/18/2023 9:33 AM BUILDING ADMIN EXAMINATION: Chest 1 view Procedure Note Ramirez Blake MD - 10/18/2023 EXAMINATION: Chest 1 view IMPRESSION: Comparison 10/17/2023 at 1:37 PM. Median sternotomy wires and sternal plates again seen. Aortic valve replacement again noted. Lincoln-Daniel catheter tip projects over the proximal portion of the right pulmonary artery. Endotracheal tube tip approximately 5 cm above the boni. Gastric tube courses caudal to the diaphragm. Right internal jugular central venous catheter tip overlies the superior vena cava. Mediastinal tube and left basilar chest tube remain in place. Lung volumes are small. Cardiac mediastinal silhouette stable in keeping with postoperative change. Increasing now moderate bibasilar opacity most compatible with atelectasis and small bilateral pleural effusions left greater than right. No pneumothorax seen. Electronically signed by: Ramirez Blake M.D. Byron Olvera SENIOR CAREGIVER IMG XR PROCEDURES Final Result * (ABNORMAL) POCT glucose (10/18/2023 5:04 AM BUILDING ADMIN) Glucose, POC 172(H) 70 - 140 mg/dL [facility] Comment: For Glucose values <35 mg/dl when Hematocrit is >60 mg/dl,the test may not accurately detect significant hypoglycemia,and testing in the Laboratory should be considered if clinically indicated. Blood 10/18/2023 5:04 AM BUILDING ADMIN 10/18/2023 5:04 AM BUILDING ADMIN Jaqueline Valero MD LAB POCT ORDERABLES - APRIL CE Final Result Performing Organization Address [facility] de Phone Number [facility] [address] [place], [place] [id number] * (ABNORMAL) POCT glucose (10/18/2023 4:03 AM BUILDING ADMIN) Glucose, POC 165(H) 70 - 140 mg/dL [facility] Comment: For Glucose values <35 mg/dl when Hematocrit is >60 mg/dl,the test may not accurately detect significant hypoglycemia,and testing in the Laboratory should be considered if clinically indicated. Blood 10/18/2023 4:03 AM BUILDING ADMIN 10/18/2023 4:03 AM BUILDING ADMIN Jaqueline Valero MD LAB POCT ORDERABLES - APRIL CE Final Result Performing Organization Address [facility] Co de Phone Number [facility] [address] [facility] [place] [address] * (ABNORMAL) POCT glucose (10/18/2023 3:04 AM BUILDING ADMIN) Glucose, POC 167(H) 70 - 140 mg/dL [facility] Comment: For Glucose values <35 mg/dl when Hematocrit is >60 mg/dl,the test may not accurately detect significant hypoglycemia,and testing in the Laboratory should be considered if clinically indicated. Blood 10/18/2023 3:04 AM BUILDING ADMIN 10/18/2023 3:04 AM BUILDING ADMIN Jaqueline Valero MD LAB POCT ORDERABLES - APRIL CE Final Result Performing Organization Address [facility] Co de Phone Number [facility] [address] [facility] [place], [place] [id number] * (ABNORMAL) POCT glucose (10/18/2023 1:57 AM BUILDING ADMIN) Glucose, POC 178(H) 70 - 140 mg/dL [facility] Comment: For Glucose values <35 mg/dl when Hematocrit is >60 mg/dl,the test may not accurately detect significant hypoglycemia,and testing in the Laboratory should be considered if clinically indicated. Blood 10/18/2023 1:57 AM BUILDING ADMIN 10/18/2023 1:57 AM BUILDING ADMIN Jaqueline Valero MD LAB POCT ORDERABLES - APRIL CE Final Result Performing Organization Address [facility] de Phone Number [facility] [address] [facility] [place], [place] [id number] * (ABNORMAL) Fibrinogen (10/18/2023 1:54 AM BUILDING ADMIN) [facility] Fibrinogen 435(H) 170 - 400 mg/dL [facility] Blood 10/18/2023 1:54 AM BUILDING ADMIN 10/18/2023 2:14 AM BUILDING ADMIN Jaqueline Valero MD LAB BLOOD ORDERABLES Final Result Performing Organization Address [facility] Co de Phone Number [facility] [address] [facility] [place], [place] [id number] * eGFR (10/18/2023 1:54 AM BUILDING ADMIN) [facility] eGFR 5 mL/min/1. 73 m2 [facility] Comment: Interpretive Data Reference Interval Normal ?>/= [...] interpretive data was last reviewed 2021. Blood 10/18/2023 1:54 AM BUILDING ADMIN 10/18/2023 2:14 AM BUILDING ADMIN us Dawna Castellanos SENIOR CAREGIVER LAB BLOOD ORDERABLES Ann Marie kramer Result [facility] [address] Department [place] [address] * Blood gas, arterial (10/18/2023 1:54 AM BUILDING ADMIN) pH, Art 7.35 7.35 - 7.45 [facility] PCO2, Arterial 38 35 - 45 mmHg [facility] PO2, Arterial 92 83 - 108 mmHg [facility] HCO3 Art (Calculated) 21 20 - 30 mmol/L [facility] BE, art -4 mmol/L [facility] Comment: Interpretive Data No Reference Range Established Current Interpretive Data was last revised on 2017 O2 Sat Art (Calculated) 97 94 - 98 % [facility] Blood 10/18/2023 1:54 AM BUILDING ADMIN 10/18/2023 2:11 AM BUILDING ADMIN Dawna Castellanos SENIOR CAREGIVER LAB BLOOD ORDERABLES Ann Marie l Result Performing Organization Address [facility] Co de Phone Number [facility] [address] [place] [address] * Protime-INR (10/18/2023 1:54 AM BUILDING ADMIN) PT 13.4 10.3 - 13.7 sec [facility] INR 1.18 0.90 - 1.20 [facility] Comment: Interpretive data Oral anticoagulant therapeutic ranges: Venous thromboembolism prophylaxis or treatment: 2.0-3.0 CARDIOLOGY Standard range: 2.0-3.0 High-intensity range: 2.5-3.5 Refer to indication-specific guidelines for appropriate target ranges for prosthetic heart valve replacement. Current interpretive data was last revised on 2019. Blood 10/18/2023 1:54 AM BUILDING ADMIN 10/18/2023 2:14 AM BUILDING ADMIN Jaqueline Valero MD LAB BLOOD ORDERABLES Final Result Performing Organization Address [facility] Co de Phone Number [facility] [address] [facility] [place] [address] * Magnesium (10/18/2023 1:54 AM BUILDING ADMIN) Magnesium 2.5 1.4 - 2.5 mg/dL [facility] Blood 10/18/2023 1:54 AM BUILDING ADMIN 10/18/2023 2:14 AM BUILDING ADMIN Byron Olvera SENIOR CAREGIVER LAB BLOOD ORDERABLES Fi nal Result Performing Organization Address [facility] Co de Phone Number [facility] [address] [place] [address] * Calcium, ionized (10/18/2023 1:54 AM BUILDING ADMIN) Calcium, Ionized 4.94 4.50 - 5.10 mg/dL [facility] Blood 10/18/2023 1:54 AM BUILDING ADMIN 10/18/2023 2:12 AM BUILDING ADMIN us Byron Olvera SENIOR CAREGIVER LAB BLOOD ORDERABLES Fi nal Result [facility] [address] [place] [address] * (ABNORMAL) Renal function panel (10/18/2023 1:54 AM BUILDING ADMIN) Pathologist [facility] Sodium 136 135 - 145 mmol/L [facility] Potassium, pl 4.0 3.3 - 4.9 mmol/L [facility] Chloride 98 97 - 110 mmol/L [facility] CO2 20(L) 22 - 32 mmol/L [facility] Anion gap 18(H) 2 - 15 mmol/L [facility] BUN 71(H) 6 - 25 mg/dL [facility] Creatinine 10.47(H) 0.80 - 1.30 mg/dL [facility] Glucose 174 70 - 199 mg/dL [facility] Comment: Interpretive Data Fasting glucose [...] interpretive data was last revised 2022. Calcium 9.2 8.5 - 10.3 mg/dL [facility] Phosphorus, pl 6.5(H) 2.3 - 4.5 mg/dL [facility] Albumin 2.6(L) 3.5 - 5.0 g/dL [facility] Blood 10/18/2023 1:54 AM BUILDING ADMIN 10/18/2023 2:14 AM BUILDING ADMIN Byron Olvera NP LAB BLOOD ORDERABLES Fi nal Result Performing Organization Address [facility] Co de Phone Number [facility] [address] [place] [address] * (ABNORMAL) CBC without differential (10/18/2023 1:54 AM BUILDING ADMIN) [facility] WBC 8.3 3.8 - 9.9 K/cumm [facility] Hgb 8.5(L) 13.0 - 17.5 g/dL [facility] Hct 26.4(L) 38.9 - 50.3 % [facility] Plt 164 150 - 400 K/cumm [facility] MPV 11.1 9.1 - 12.3 fL [facility] RBC 2.89(L) 4.30 - 5.80 M/cumm [facility] MCV 91.3 81.3 - 96.4 fL [facility] MCH 29.4 27.1 - 33.3 pg [facility] MCHC 32.2(L) 32.3 - 35.7 g/dL [facility] RDW CV 15.5(H) 11.1 - 14.9 % [facility] RDW SD 49.9(H) 35.7 - 48.1 fL [facility] NRBC abs 0.02(H) 0.00 - 0.01 K/cumm [facility] Blood 10/18/2023 1:54 AM BUILDING ADMIN 10/18/2023 2:14 AM BUILDING ADMIN Byron Olvera NP LAB BLOOD ORDERABLES Fi nal Result Performing Organization Address [facility]/ZIP Co de Phone Number [facility] [address] [place], [place] [id number] * (ABNORMAL) POCT glucose (10/18/2023 12:57 AM BUILDING ADMIN) [facility] Glucose, POC 169(H) 70 - 140 mg/dL [facility] Comment: For Glucose values <35 mg/dl when Hematocrit is >60 mg/dl,the test may not accurately detect significant hypoglycemia,and testing in the Laboratory should be considered if clinically indicated. Blood 10/18/2023 12:5 7 AM BUILDING ADMIN 10/18/2023 12:57 AM BUILDING ADMIN Jaqueline Valero MD LAB POCT ORDERABLES - APRIL CE Final Result Performing Organization Address [facility] de Phone Number [facility] [address] [place] [address] * (ABNORMAL) POCT glucose (10/18/2023 12:04 AM BUILDING ADMIN) Glucose, POC 150(H) 70 - 140 mg/dL [facility] Comment: For Glucose values <35 mg/dl when Hematocrit is >60 mg/dl,the test may not accurately detect significant hypoglycemia,and testing in the Laboratory should be considered if clinically indicated. Blood 10/18/2023 12:0 4 AM BUILDING ADMIN 10/18/2023 12:04 AM BUILDING ADMIN Result [facility] Jaqueline Valero MD LAB POCT ORDERABLES - APRIL CE Final Result Performing Organization Address [facility] de Phone Number [facility] [address] [facility] [place] [address] * POCT glucose (10/17/2023 11:00 PM BUILDING ADMIN) Glucose, POC 111 70 - 140 mg/dL [facility] Comment: For Glucose values <35 mg/dl when Hematocrit is >60 mg/dl,the test may not accurately detect significant hypoglycemia,and testing in the Laboratory should be considered if clinically indicated. Blood 10/17/2023 11:0 0 PM BUILDING ADMIN 10/17/2023 11:00 PM BUILDING ADMIN Jaqueline Valero MD LAB POCT ORDERABLES - APRIL CE Final Result Performing Organization Address [facility]/ZIP Co de Phone Number [facility] [address] [place] [address] * (ABNORMAL) Blood gas, arterial (10/17/2023 10:56 PM BUILDING ADMIN) [facility] pH, Art 7.33(L) 7.35 - 7.45 [facility] PCO2, Arterial 38 35 - 45 mmHg [facility] PO2, Arterial 102 83 - 108 mmHg [facility] HCO3 Art (Calculated) 20 20 - 30 mmol/L [facility] BE, art -5 mmol/L [facility] Comment: Interpretive Data No Reference Range Established Current Interpretive Data was last revised on 2017 O2 Sat Art (Calculated) 97 94 - 98 % [facility] Blood 10/17/2023 10:5 6 PM BUILDING ADMIN 10/17/2023 11:05 PM BUILDING ADMIN Dawna Castellanos SENIOR CAREGIVER LAB BLOOD ORDERABLES Ann Marie l Result [facility] [address] [place] [address] * (ABNORMAL) Differential, auto (10/17/2023 10:55 PM BUILDING ADMIN) [facility] Neutrophil abs 5.7 1.5 - 6.5 K/cumm [facility] Imm gran abs 0.1 0.0 - 0.1 K/cumm [facility] Lymphocyte abs 0.7(L) 0.8 - 3.3 K/cumm [facility] Monocyte abs 1.1(H) 0.2 - 0.8 K/cumm [facility] Eosinophil abs 0.1 0.0 - 0.5 K/cumm [facility] Basophil abs 0.0 0.0 - 0.1 K/cumm [facility] Neutrophil pct 73.6 % [facility] Comment: Interpretive Data Percent cell count reference ranges are not reported, since discordance with absolute values may lead to misinterpretation of CBC data. Current Interpretive Data was last revised on 2017. Imm gran pct 1.8 % [facility] Comment: Interpretive Data Percent cell count reference ranges are not reported, since discordance with absolute values may lead to misinterpretation of CBC data. Current Interpretive Data was last revised on 2017. Lymphocyte pct 9.3 % [facility] Comment: Interpretive Data Percent cell count reference ranges are not reported, since discordance with absolute values may lead to misinterpretation of CBC data. Current Interpretive Data was last revised on 2017. Monocyte pct 13.7 % [facility] Comment: Interpretive Data Percent cell count reference ranges are not reported, since discordance with absolute values may lead to misinterpretation of CBC data. Current Interpretive Data was last revised on 2017. Eosinophil pct 1.3 % [facility] Comment: Interpretive Data Percent cell count reference ranges are not reported, since discordance with absolute values may lead to misinterpretation of CBC data. Current Interpretive Data was last revised on 2017. Basophil pct 0.3 % [facility] Comment: Interpretive Data Percent cell count reference ranges are not reported, since discordance with absolute values may lead to misinterpretation of CBC data. Current Interpretive Data was last revised on 2017. Blood 10/17/2023 10:5 5 PM BUILDING ADMIN 10/17/2023 11:19 PM BUILDING ADMIN Gamal Fox NP LAB BLOOD ORDERABLES Final Result Performing Organization Address [facility]/ZIP Co de Phone Number [facility] [address] [place] [address] * Lactate (10/17/2023 10:55 PM BUILDING ADMIN) Lactate 0.9 0.7 - 2.0 mmol/L [facility] Blood 10/17/2023 10:5 5 PM BUILDING ADMIN 10/17/2023 11:04 PM BUILDING ADMIN Gamal Fox NP LAB BLOOD ORDERABLES Final Result Performing Organization Address [facility]/ZIP Co de Phone Number [facility] [address] [place] [address] * Calcium, ionized (10/17/2023 10:55 PM BUILDING ADMIN) [facility] Calcium, Ionized 4.51 4.50 - 5.10 mg/dL [facility] Blood 10/17/2023 10:5 5 PM BUILDING ADMIN 10/17/2023 11:05 PM BUILDING ADMIN Gamal Fox SENIOR CAREGIVER LAB BLOOD ORDERABLES Final Result Performing Organization Address [facility]/ZIP Co de Phone Number [facility] [address] [place] [place] [address] * (ABNORMAL) CBC with auto differential (10/17/2023 10:55 PM BUILDING ADMIN) [facility] WBC 7.7 3.8 - 9.9 K/cumm [facility] Hgb 8.8(L) 13.0 - 17.5 g/dL [facility] Hct 27.2(L) 38.9 - 50.3 % [facility] Plt 165 150 - 400 K/cumm [facility] MPV 11.0 9.1 - 12.3 fL [facility] RBC 2.94(L) 4.30 - 5.80 M/cumm [facility] MCV 92.5 81.3 - 96.4 fL [facility] MCH 29.9 27.1 - 33.3 pg [facility] MCHC 32.4 32.3 - 35.7 g/dL [facility] RDW CV 15.6(H) 11.1 - 14.9 % [facility] RDW SD 50.5(H) 35.7 - 48.1 fL [facility] NRBC abs 0.03(H) 0.00 - 0.01 K/cumm [facility] Blood 10/17/2023 10:5 5 PM BUILDING ADMIN 10/17/2023 11:19 PM BUILDING ADMIN Gamal Fox SENIOR CAREGIVER LAB BLOOD ORDERABLES Final Result Performing Organization Address [facility]/ZIP Co de Phone Number [facility] [address] [place] [place] [address] * POCT glucose (10/17/2023 10:19 PM BUILDING ADMIN) Glucose, POC 97 70 - 140 mg/dL [facility] Comment: For Glucose values <35 mg/dl when Hematocrit is >60 mg/dl,the test may not accurately detect significant hypoglycemia,and testing in the Laboratory should be considered if clinically indicated. Blood 10/17/2023 10:1 9 PM BUILDING ADMIN 10/17/2023 10:19 PM BUILDING ADMIN Jaqueline Valero MD LAB POCT ORDERABLES - APRIL CE Final Result Performing Organization Address [facility] Co de Phone Number [facility] [address] [facility] [place] [address] * POCT glucose (10/17/2023 9:00 PM BUILDING ADMIN) Glucose, POC 127 70 - 140 mg/dL [facility] Comment: For Glucose values <35 mg/dl when Hematocrit is >60 mg/dl,the test may not accurately detect significant hypoglycemia,and testing in the Laboratory should be considered if clinically indicated. Blood 10/17/2023 9:00 PM BUILDING ADMIN 10/17/2023 9:00 PM BUILDING ADMIN Jaqueline Valero MD LAB POCT ORDERABLES - APRIL CE Final Result Performing Organization Address [facility] Co de Phone Number [facility] [address] [facility] [place] [address] * Transfuse RBC (10/17/2023 8:13 PM BUILDING ADMIN) Blood Kirsten Burns MD BLOOD TRANSFUSION ORDERA BLES Final Result Performing Organization Address [facility] Co de Phone Number [facility] [address] [facility] [place] [address] * Transfuse RBC: 1 Units (10/17/2023 8:13 PM BUILDING ADMIN) Blood Kirsten Burns MD BLOOD TRANSFUSION ORDERA BLES Final Result * (ABNORMAL) POCT glucose (10/17/2023 8:07 PM BUILDING ADMIN) Glucose, POC 157(H) 70 - 140 mg/dL [facility] Comment: For Glucose values <35 mg/dl when Hematocrit is >60 mg/dl,the test may not accurately detect significant hypoglycemia,and testing in the Laboratory should be considered if clinically indicated. Blood 10/17/2023 8:07 PM BUILDING ADMIN 10/17/2023 8:07 PM BUILDING ADMIN Jaqueline Valero MD LAB POCT ORDERABLES - APRIL CE Final Result Performing Organization Address [facility] Co de Phone Number [facility] [address] [place], [place] [id number] * POCT glucose (10/17/2023 7:18 PM BUILDING ADMIN) Glucose, POC 135 70 - 140 mg/dL [facility] Comment: For Glucose values <35 mg/dl when Hematocrit is >60 mg/dl,the test may not accurately detect significant hypoglycemia,and testing in the Laboratory should be considered if clinically indicated. Blood 10/17/2023 7:18 PM BUILDING ADMIN 10/17/2023 7:18 PM BUILDING ADMIN Jaqueline Valero MD LAB POCT ORDERABLES - APRIL CE Final Result Performing Organization Address [facility]/ZIP Co de Phone Number [facility] [address] [facility] [place], [place] [phone] * Critical Care (10/17/2023 6:42 PM BUILDING ADMIN) Narrative Kirsten Burns MD - 10/17/2023 6:42 PM BUILDING ADMIN Gamal Fox NP ? 10/18/2023 ??5:08 AM Critical Care Performed by: Gamal Fox NP Authorized by: Gamal Fox NP ?? CRITICAL CARE: ??Team: ??[facility] ??Shift: ??PM ??Level of Billing: ??Critical Care ??My time spent with this patient was 80 minutes: Critical Provider Statement: I have seen and examined the patient on this day of service. I have reviewed and confirmed the history, physical exam, laboratory and radiologic data as documented in the signed ICU note. I have reviewed and discussed my treatment plan with the ICU team and other medical/as400 consultant staff, making frequent assessments and decisions regarding this patient's complex medical care. Critical Care time was exclusive of time spent performing separately billed procedures, treating other patients, and teaching. This time was in addition to and separate from critical care provided by other practitioners in my group on this day of service. Critical Care was necessary to treat or prevent imminent or life-threatening deterioration of the following conditions: ? I spent time reviewing and interpreting data from bedside monitors, laboratory results, and imaging, I spent time documenting in the medical record and I spent time discussing the management of this critically ill patient with consultants and the medical staff us Gamal Fox NP IN CLINIC/BEDSIDE ORDERABL ES Final Result * Prepare RBC: 1 Units (10/17/2023 6:34 PM BUILDING ADMIN) Product code [id number] Unit Number [id number] 1-2 [facility] Product Blood Type APOS [facility] Dispense Status RETURNED [facility] Blood 10/17/2023 6:34 PM BUILDING ADMIN Narrative [facility] - 10/19/2023 7:08 AM BUILDING ADMIN Other indication->Bleeding post cardiac surgery Are special requirements needed? (All products are leukoreduced and CMV- safe)- >No Date required:-20231017 LRRBC # of [id number] Reasons:-Other (specify)} us Kirsten Burns MD BLOOD BANK PRODUCT ORDER ROVERTO Final Result [facility] [address] [place] [address] * Potassium (10/17/2023 6:14 PM BUILDING ADMIN) [facility] Potassium, pl 4.2 3.3 - 4.9 mmol/L [facility] Blood 10/17/2023 6:14 PM BUILDING ADMIN 10/17/2023 6:27 PM BUILDING ADMIN Byron Olvera SENIOR CAREGIVER LAB BLOOD ORDERABLES Fi nal Result Performing Organization Address [facility]/ZIP Co de Phone Number [facility] [address] [place] [place] [address] * (ABNORMAL) CBC without differential (10/17/2023 6:12 PM BUILDING ADMIN) [facility] WBC 7.2 3.8 - 9.9 K/cumm [facility] Hgb 8.0(L) 13.0 - 17.5 g/dL [facility] Hct 24.7(L) 38.9 - 50.3 % [facility] Plt 161 150 - 400 K/cumm [facility] MPV 10.8 9.1 - 12.3 fL [facility] RBC 2.68(L) 4.30 - 5.80 M/cumm [facility] MCV 92.2 81.3 - 96.4 fL [facility] MCH 29.9 27.1 - 33.3 pg [facility] MCHC 32.4 32.3 - 35.7 g/dL [facility] RDW CV 15.5(H) 11.1 - 14.9 % [facility] RDW SD 50.4(H) 35.7 - 48.1 fL [facility] NRBC abs 0.04(H) 0.00 - 0.01 K/cumm [facility] Blood 10/17/2023 6:12 PM BUILDING ADMIN 10/17/2023 6:18 PM BUILDING ADMIN us Dawna Castellanos SENIOR CAREGIVER LAB BLOOD ORDERABLES Ann Marie l Result Performing Organization Address [facility]/ZIP Co de Phone Number [facility] [address] [place] [address] * (ABNORMAL) Protime-INR (10/17/2023 6:12 PM BUILDING ADMIN) Pathologist [facility] PT 13.9(H) 10.3 - 13.7 sec [facility] INR 1.22(H) 0.90 - 1.20 [facility] Comment: Interpretive data Oral anticoagulant therapeutic ranges: Venous thromboembolism prophylaxis or treatment: 2.0-3.0 CARDIOLOGY Standard range: 2.0-3.0 High-intensity range: 2.5-3.5 Refer to indication-specific guidelines for appropriate target ranges for prosthetic heart valve replacement. Current interpretive data was last revised on 2019. Blood 10/17/2023 6:12 PM BUILDING ADMIN 10/17/2023 6:18 PM BUILDING ADMIN Dawna Castellanos SENIOR CAREGIVER LAB BLOOD ORDERABLES Ann Marie l Result Performing Organization Address [facility] de Phone Number [facility] [address] [place] [address] * Fibrinogen (10/17/2023 6:12 PM BUILDING ADMIN) [facility] Fibrinogen 386 170 - 400 mg/dL [facility] Blood 10/17/2023 6:12 PM BUILDING ADMIN 10/17/2023 6:18 PM BUILDING ADMIN Dawna Bradshaw Castellanos SENIOR CAREGIVER LAB BLOOD ORDERABLES Ann Marie l Result Performing Organization Address [facility] de Phone Number [facility] [address] [place] [address] * aPTT (10/17/2023 6:12 PM BUILDING ADMIN) [facility] aPTT 32 28 - 38 sec [facility] Comment: Interpretive Data Heparin therapeutic range: 66.0 - 100.0 seconds. Range based on correlation with therapeutic heparin activity range of 0.3 - 0.7 Units/mL. Current interpretive data was last revised on 2023. Blood 10/17/2023 6:12 PM BUILDING ADMIN 10/17/2023 6:18 PM BUILDING ADMIN Dawna Castellanos SENIOR CAREGIVER LAB BLOOD ORDERABLES Ann Marie l Result Performing Organization Address [facility] Co de Phone Number [facility] [address] [place] [address] * (ABNORMAL) Blood gas, arterial (10/17/2023 6:12 PM BUILDING ADMIN) pH, Art 7.40 7.35 - 7.45 [facility] PCO2, Arterial 35 35 - 45 mmHg [facility] PO2, Arterial 69(L) 83 - 108 mmHg [facility] HCO3 Art (Calculated) 22 20 - 30 mmol/L [facility] BE, art -2 mmol/L [facility] Comment: Interpretive Data No Reference Range Established Current Interpretive Data was last revised on 2017 O2 Sat Art (Calculated) 94 94 - 98 % [facility] Blood 10/17/2023 6:12 PM BUILDING ADMIN 10/17/2023 6:15 PM BUILDING ADMIN Dawna Castellanos SENIOR CAREGIVER LAB BLOOD ORDERABLES Ann Marie l Result Performing Organization Address [facility] Co de Phone Number [facility] [address] [place] [address] * POCT glucose (10/17/2023 6:11 PM BUILDING ADMIN) Glucose, POC 130 70 - 140 mg/dL [facility] Comment: For Glucose values <35 mg/dl when Hematocrit is >60 mg/dl,the test may not accurately detect significant hypoglycemia,and testing in the Laboratory should be considered if clinically indicated. Blood 10/17/2023 6:11 PM BUILDING ADMIN 10/17/2023 6:11 PM BUILDING ADMIN Jaqueline Valero MD LAB POCT ORDERABLES - APRIL CE Final Result Performing Organization Address [facility] Co de Phone Number [facility] [address] [place] [address] * Transfuse plasma Standard plasma (10/17/2023 5:46 PM BUILDING ADMIN) Blood Result [facility] Kirsten Burns MD BLOOD TRANSFUSION ORDERA BLES Final Result Performing Organization Address [facility]/ZIP Co de Phone Number [facility] [address] [facility] [place] [address] * Transfuse plasma: 1 Units Standard plasma (10/17/2023 5:46 PM BUILDING ADMIN) Blood Result [facility] Kirsten Burns MD BLOOD TRANSFUSION ORDERA BLES Final Result * Prepare plasma: 1 Units Standard plasma (10/17/2023 5:09 PM BUILDING ADMIN) Product code [id number] Unit Number [id number] [facility] Product Blood Type APOS [facility] Dispense Status PRESUMED TRANSFUSED [facility] Blood (Blood, Venous) 10/17/2023 5:09 PM BUILDING ADMIN Narrative [facility] - 10/17/2023 10:15 PM BUILDING ADMIN Is this plasma order intended for a COVID-19 patient as convalescent plasma?->Standard plasma Special Requirements Needed?->No Date required:-[id number] FFP # of Units:-1-Units Reasons:-Active major bleeding with coagulopathy} Result [facility] Kirsten Burns MD BLOOD BANK PRODUCT ORDER ROVERTO Final Result Performing Organization Address [facility]/ZIP Co de Phone Number [facility] [address] [place] [address] * POCT glucose (10/17/2023 4:50 PM BUILDING ADMIN) Glucose, POC 110 70 - 140 mg/dL [facility] Comment: For Glucose values <35 mg/dl when Hematocrit is >60 mg/dl,the test may not accurately detect significant hypoglycemia,and testing in the Laboratory should be considered if clinically indicated. Blood 10/17/2023 4:50 PM BUILDING ADMIN 10/17/2023 4:50 PM BUILDING ADMIN Result [facility] Jaqueline Valero MD LAB POCT ORDERABLES - APRIL CE Final Result Performing Organization Address [facility] de Phone Number [facility] [address] [place], [place] [id number] * Transfuse plasma Standard plasma (10/17/2023 4:33 PM BUILDING ADMIN) Blood Result [facility] Kirsten Burns MD BLOOD TRANSFUSION ORDERA BLES Final Result Performing Organization Address [facility] de Phone Number [facility] [address] [place] [address] * Transfuse plasma: 1 Units Standard plasma (10/17/2023 4:33 PM BUILDING ADMIN) Blood Result [facility] Kirsten Bursn MD BLOOD TRANSFUSION ORDERA BLES Final Result * Transfuse RBC (10/17/2023 4:33 PM BUILDING ADMIN) Blood Result [facility] Kirsten Burns MD BLOOD TRANSFUSION ORDERA BLES Final Result Performing Organization Address [facility] de Phone Number [facility] [address] [place] [address] * Transfuse RBC: 1 Units (10/17/2023 4:33 PM BUILDING ADMIN) Blood Result [facility] Kirsten Burns MD BLOOD TRANSFUSION ORDERA BLES Final Result * (ABNORMAL) CBC without differential (10/17/2023 4:32 PM BUILDING ADMIN) WBC 7.2 3.8 - 9.9 K/cumm [facility] Hgb 8.5(L) 13.0 - 17.5 g/dL [facility] Hct 26.4(L) 38.9 - 50.3 % [facility] Plt 166 150 - 400 K/cumm [facility] MPV 10.9 9.1 - 12.3 fL [facility] RBC 2.85(L) 4.30 - 5.80 M/cumm [facility] MCV 92.6 81.3 - 96.4 fL [facility] MCH 29.8 27.1 - 33.3 pg [facility] MCHC 32.2(L) 32.3 - 35.7 g/dL [facility] RDW CV 15.5(H) 11.1 - 14.9 % [facility] RDW SD 51.4(H) 35.7 - 48.1 fL [facility] NRBC abs 0.06(H) 0.00 - 0.01 K/cumm [facility] Blood 10/17/2023 4:32 PM BUILDING ADMIN 10/17/2023 4:37 PM BUILDING ADMIN us Dawna Castellanos SENIOR CAREGIVER LAB BLOOD ORDERABLES Ann Marie l Result Performing Organization Address [facility]/ZIP Co de Phone Number [facility] [address] [place] [address] * (ABNORMAL) aPTT (10/17/2023 4:32 PM BUILDING ADMIN) aPTT 63(H) 28 - 38 sec [facility] Comment: Interpretive Data Heparin therapeutic range: 66.0 - 100.0 seconds. Range based on correlation with therapeutic heparin activity range of 0.3 - 0.7 Units/mL. Current interpretive data was last revised on 2023. Blood 10/17/2023 4:32 PM BUILDING ADMIN 10/17/2023 4:37 PM BUILDING ADMIN Dawna Castellanos SENIOR CAREGIVER LAB BLOOD ORDERABLES Ann Marie l Result [facility] [address] [place] [address] * Fibrinogen (10/17/2023 4:32 PM BUILDING ADMIN) Pathologist [facility] Fibrinogen 393 170 - 400 mg/dL [facility] Blood 10/17/2023 4:32 PM BUILDING ADMIN 10/17/2023 4:37 PM BUILDING ADMIN Dawna Castellanos SENIOR CAREGIVER LAB BLOOD ORDERABLES Ann Marie l Result Performing Organization Address [facility] de Phone Number [facility] [address] [place] [address] * (ABNORMAL) Protime-INR (10/17/2023 4:32 PM BUILDING ADMIN) [facility] PT 14.0(H) 10.3 - 13.7 sec [facility] INR 1.23(H) 0.90 - 1.20 [facility] Comment: Interpretive data Oral anticoagulant therapeutic ranges: Venous thromboembolism prophylaxis or treatment: 2.0-3.0 CARDIOLOGY Standard range: 2.0-3.0 High-intensity range: 2.5-3.5 Refer to indication-specific guidelines for appropriate target ranges for prosthetic heart valve replacement. Current interpretive data was last revised on 2019. Blood 10/17/2023 4:32 PM BUILDING ADMIN 10/17/2023 4:37 PM BUILDING ADMIN Dawna Castellanos SENIOR CAREGIVER LAB BLOOD ORDERABLES Ann Marie l Result Performing Organization Address [facility] Co de Phone Number [facility] [address] [place] [address] * (ABNORMAL) Blood gas, arterial (10/17/2023 4:32 PM BUILDING ADMIN) [facility] pH, Art 7.31(L) 7.35 - 7.45 [facility] PCO2, Arterial 45 35 - 45 mmHg [facility] PO2, Arterial 72(L) 83 - 108 mmHg [facility] HCO3 Art (Calculated) 23 20 - 30 mmol/L [facility] BE, art -4 mmol/L [facility] Comment: Interpretive Data No Reference Range Established Current Interpretive Data was last revised on 2017 O2 Sat Art (Calculated) 93(L) 94 - 98 % [facility] Blood 10/17/2023 4:32 PM BUILDING ADMIN 10/17/2023 4:35 PM BUILDING ADMIN us Dawna Castellanos SENIOR CAREGIVER LAB BLOOD ORDERABLES Ann Marie l Result Performing Organization Address [facility] Co de Phone Number [facility] [address] [place], [place] [id number] * POCT glucose (10/17/2023 3:51 PM BUILDING ADMIN) [facility] Glucose, POC 98 70 - 140 mg/dL [facility] Comment: For Glucose values <35 mg/dl when Hematocrit is >60 mg/dl,the test may not accurately detect significant hypoglycemia,and testing in the Laboratory should be considered if clinically indicated. Blood 10/17/2023 3:51 PM BUILDING ADMIN 10/17/2023 3:51 PM BUILDING ADMIN Jaqueline Valero MD LAB POCT ORDERABLES - APRIL CE Final Result Performing Organization Address [facility] Co de Phone Number [facility] [address] [place], [place] [phone] * Prepare plasma: 1 Units Standard plasma (10/17/2023 3:32 PM BUILDING ADMIN) [facility] Product code [id number] Unit Number [id number] [facility] Product Blood Type APOS [facility] Dispense Status PRESUMED TRANSFUSED [facility] Blood (Blood, Venous) 10/17/2023 3:32 PM BUILDING ADMIN Narrative [facility] - 10/17/2023 10:15 PM BUILDING ADMIN Is this plasma order intended for a COVID-19 patient as convalescent plasma?->Standard plasma Special Requirements Needed?->No Date required:-20231017 FFP # of Units:-1-Units Reasons:-Active major bleeding with coagulopathy} Kirsten Burns MD BLOOD BANK PRODUCT ORDER ROVERTO Final Result Performing Organization Address [facility] Co de Phone Number [facility] [address] [place], [place] [id number] * Prepare RBC: 1 Units (10/17/2023 3:32 PM BUILDING ADMIN) [facility] Product code [id number] Unit Number [id number] [facility] Product Blood Type APOS [facility] Dispense Status [facility] Blood 10/17/2023 3:32 PM BUILDING ADMIN Narrative [facility] - 10/19/2023 7:08 AM BUILDING ADMIN Are special requirements needed? (All products are leukoreduced and CMV- safe)- >No Date required:-[id number] LRRBC # of [id number] Reasons:-Hemorrhagic shock/Life-threatening bleeding} Kirsten Burns MD BLOOD BANK PRODUCT ORDER ROVERTO Final Result Performing Organization Address [facility] de Phone Number [facility] [address] [place] [address] * POCT glucose (10/17/2023 2:34 PM BUILDING ADMIN) [facility] Glucose, POC 102 70 - 140 mg/dL [facility] Comment: For Glucose values <35 mg/dl when Hematocrit is >60 mg/dl,the test may not accurately detect significant hypoglycemia,and testing in the Laboratory should be considered if clinically indicated. Blood 10/17/2023 2:34 PM BUILDING ADMIN 10/17/2023 2:34 PM BUILDING ADMIN Jaqueline Valero MD LAB POCT ORDERABLES - APRIL CE Final Result Performing Organization Address [facility] Co de Phone Number [facility] [address] Department [place], [place] [phone] * XR Chest 1 View - Portable (10/17/2023 1:49 PM BUILDING ADMIN) Anatomical Region Laterality Modality Body, Chest N/A Computed Radiogr aphy 10/17/2023 2:01 PM BUILDING ADMIN Impressions 10/17/2023 2:01 PM BUILDING ADMIN Comparison is made to two-view chest radiograph dated 10/16/2023. ??Endotracheal tube projects approximately 4.5 cm above the boni. ??Interval postoperative changes of median sternotomy with sternal wires, sternal plating, for aortic valve replacement. ??Right internal jugular central venous catheter overlies the superior vena cava. ??Lincoln-Daniel catheter tip projects over the main pulmonary artery. ??Left thoracostomy tube and mediastinal drain. ??Gastric tube courses caudally beneath left hemidiaphragm out of the [id number]. Lung volumes are small with minimal bibasilar atelectasis, left greater than right. ??Possible trace left pleural effusion. ??No pneumothorax. Electronically signed by: Tania Malone M.D. Narrative 10/17/2023 2:01 PM BUILDING ADMIN EXAMINATION: 1 view chest radiograph Procedure Note Tania Malone MD - 10/17/2023 EXAMINATION: 1 view chest radiograph IMPRESSION: Comparison is made to two-view chest radiograph dated 10/16/2023. Endotracheal tube projects approximately 4.5 cm above the boni. Interval postoperative changes of median sternotomy with sternal wires, sternal plating, for aortic valve replacement. Right internal jugular central venous catheter overlies the superior vena cava. Lincoln-Daniel catheter tip projects over the main pulmonary artery. Left thoracostomy tube and mediastinal drain. Gastric tube courses caudally beneath left hemidiaphragm out of the [id number]. Lung volumes are small with minimal bibasilar atelectasis, left greater than right. Possible trace left pleural effusion. No pneumothorax. Electronically signed by: Tania Malone M.D. Dawna Castellanos SENIOR CAREGIVER IMG XR PROCEDURES Final R esult * Critical Care (10/17/2023 1:44 PM BUILDING ADMIN) Narrative Kirsten Burns MD - 10/17/2023 1:44 PM BUILDING ADMIN Dawna Castellanos NP ? 10/17/2023 ??4:35 PM Critical Care Performed by: Dawna Castellanos NP Authorized by: Dawna Castellanos NP ?? CRITICAL CARE: ??Team: ??[facility] ??Shift: ??AM ??Level of Billing: ??Critical Care ??My time spent with this patient was 120 minutes: Critical Provider Statement: I have seen and examined the patient on this day of service. I have reviewed and confirmed the history, physical exam, laboratory and radiologic data as documented in the signed ICU note. I have reviewed and discussed my treatment plan with the ICU team and other medical/as400 consultant staff, making frequent assessments and decisions regarding this patient's complex medical care. Critical Care time was exclusive of time spent performing separately billed procedures, treating other patients, and teaching. This time was in addition to and separate from critical care provided by other practitioners in my group on this day of service. Critical Care was necessary to treat or prevent imminent or life-threatening deterioration of the following conditions: ? I spent time documenting in the medical record, I spent time discussing the management of this critically ill patient with consultants and the medical staff and I spent time reviewing and interpreting data from bedside monitors, laboratory results, and imaging Dawna Castellanos NP IN CLINIC/BEDSIDE ORDERAB LES Final Result * eGFR (10/17/2023 1:27 PM BUILDING ADMIN) [facility] eGFR 5 mL/min/1. 73 m2 [facility] Comment: Interpretive Data Reference Interval Normal ?>/= [...] interpretive data was last reviewed 2021. Blood 10/17/2023 1:27 PM BUILDING ADMIN 10/17/2023 1:37 PM BUILDING ADMIN Dawna Castellanos SENIOR CAREGIVER LAB BLOOD ORDERABLES Ann Marie l Result Performing Organization Address [facility] Co de Phone Number [facility] [address] [facility] [place] [address] * Fibrinogen (10/17/2023 1:27 PM BUILDING ADMIN) Fibrinogen 393 170 - 400 mg/dL [facility] Blood 10/17/2023 1:27 PM BUILDING ADMIN 10/17/2023 1:37 PM BUILDING ADMIN Dawna Castellanos SENIOR CAREGIVER LAB BLOOD ORDERABLES Ann Marie l Result Performing Organization Address [facility] Co de Phone Number [facility] [address] [place] [address] * Lactate (10/17/2023 1:27 PM BUILDING ADMIN) Lactate 1.2 0.7 - 2.0 mmol/L [facility] Blood 10/17/2023 1:27 PM BUILDING ADMIN 10/17/2023 1:33 PM BUILDING ADMIN Dawna Castellanos SENIOR CAREGIVER LAB BLOOD ORDERABLES Ann Marie l Result Performing Organization Address [facility] Co de Phone Number [facility] [address] [facility] [place] [address] * aPTT (10/17/2023 1:27 PM BUILDING ADMIN) Pathologist [facility] aPTT 37 28 - 38 sec [facility] Comment: Interpretive Data Heparin therapeutic range: 66.0 - 100.0 seconds. Range based on correlation with therapeutic heparin activity range of 0.3 - 0.7 Units/mL. Current interpretive data was last revised on 2023. Blood 10/17/2023 1:27 PM BUILDING ADMIN 10/17/2023 1:37 PM BUILDING ADMIN Dawna Castellanos SENIOR CAREGIVER LAB BLOOD ORDERABLES Ann Marie l Result Performing Organization Address [facility] Co de Phone Number [facility] [address] [place] [address] * (ABNORMAL) Protime-INR (10/17/2023 1:27 PM BUILDING ADMIN) [facility] PT 14.7(H) 10.3 - 13.7 sec [facility] INR 1.29(H) 0.90 - 1.20 [facility] Comment: Interpretive data Oral anticoagulant therapeutic ranges: Venous thromboembolism prophylaxis or treatment: 2.0-3.0 CARDIOLOGY Standard range: 2.0-3.0 High-intensity range: 2.5-3.5 Refer to indication-specific guidelines for appropriate target ranges for prosthetic heart valve replacement. Current interpretive data was last revised on 2019. Blood 10/17/2023 1:27 PM BUILDING ADMIN 10/17/2023 1:37 PM BUILDING ADMIN Dawna Castellanos SENIOR CAREGIVER LAB BLOOD ORDERABLES Ann Marie l Result Performing Organization Address [facility]/ZIP Co de Phone Number [facility] [address] [place] [address] * (ABNORMAL) CBC without differential (10/17/2023 1:27 PM BUILDING ADMIN) Pathologist [facility] WBC 7.4 3.8 - 9.9 K/cumm [facility] Hgb 8.4(L) 13.0 - 17.5 g/dL [facility] Hct 26.0(L) 38.9 - 50.3 % [facility] Plt 167 150 - 400 K/cumm [facility] MPV 10.7 9.1 - 12.3 fL [facility] RBC 2.85(L) 4.30 - 5.80 M/cumm [facility] MCV 91.2 81.3 - 96.4 fL [facility] MCH 29.5 27.1 - 33.3 pg [facility] MCHC 32.3 32.3 - 35.7 g/dL [facility] RDW CV 15.4(H) 11.1 - 14.9 % [facility] RDW SD 49.8(H) 35.7 - 48.1 fL [facility] NRBC abs 0.06(H) 0.00 - 0.01 K/cumm [facility] Blood 10/17/2023 1:27 PM BUILDING ADMIN 10/17/2023 1:37 PM BUILDING ADMIN us Dawna Castellanos SENIOR CAREGIVER LAB BLOOD ORDERABLES Ann Marie kramer Result [facility] [address] [place] [address] * (ABNORMAL) Blood gas, arterial (10/17/2023 1:27 PM BUILDING ADMIN) pH, Art 7.36 7.35 - 7.45 [facility] PCO2, Arterial 42 35 - 45 mmHg [facility] PO2, Arterial 65(L) 83 - 108 mmHg [facility] HCO3 Art (Calculated) 24 20 - 30 mmol/L [facility] BE, art -2 mmol/L [facility] Comment: Interpretive Data No Reference Range Established Current Interpretive Data was last revised on 2017 O2 Sat Art (Calculated) 92(L) 94 - 98 % [facility] Blood 10/17/2023 1:27 PM BUILDING ADMIN 10/17/2023 1:33 PM BUILDING ADMIN Dawna Castellanos SENIOR CAREGIVER LAB BLOOD ORDERABLES Ann Marie l Result Performing Organization Address [facility]/ZIP Co de Phone Number [facility] [address] [facility] [place], [place] [phone] * Calcium, ionized (10/17/2023 1:27 PM BUILDING ADMIN) [facility] Calcium, Ionized 4.51 4.50 - 5.10 mg/dL [facility] Blood 10/17/2023 1:27 PM BUILDING ADMIN 10/17/2023 1:34 PM BUILDING ADMIN Dawna Castellanos SENIOR CAREGIVER LAB BLOOD ORDERABLES Ann Marie l Result Performing Organization Address [facility] Co de Phone Number [facility] [address] [facility] [place] [address] * Magnesium (10/17/2023 1:27 PM BUILDING ADMIN) [facility] Magnesium 2.3 1.4 - 2.5 mg/dL [facility] Blood 10/17/2023 1:27 PM BUILDING ADMIN 10/17/2023 1:37 PM BUILDING ADMIN Dawna Castellanos SENIOR CAREGIVER LAB BLOOD ORDERABLES Ann Marie l Result Performing Organization Address [facility] Co de Phone Number [facility] [address] [place] [address] * (ABNORMAL) Basic metabolic panel (10/17/2023 1:27 PM BUILDING ADMIN) Pathologist [facility] Sodium 139 135 - 145 mmol/L [facility] Potassium, pl 3.8 3.3 - 4.9 mmol/L [facility] Chloride 98 97 - 110 mmol/L [facility] CO2 23 22 - 32 mmol/L [facility] Anion gap 18(H) 2 - 15 mmol/L [facility] BUN 75(H) 6 - 25 mg/dL [facility] Creatinine 10.43(H) 0.80 - 1.30 mg/dL [facility] Glucose 119 70 - 199 mg/dL [facility] Comment: Interpretive Data Fasting glucose [...] interpretive data was last revised 2022. Calcium 8.9 8.5 - 10.3 mg/dL [facility] Blood 10/17/2023 1:27 PM BUILDING ADMIN 10/17/2023 1:37 PM BUILDING ADMIN Dawna Castellanos SENIOR CAREGIVER LAB BLOOD ORDERABLES Ann Marie l Result Performing Organization Address [facility] Co de Phone Number [facility] [address] [place] [place] [address] * (ABNORMAL) Phosphorus (10/17/2023 1:27 PM BUILDING ADMIN) Pathologist [facility] Phosphorus, pl 6.1(H) 2.3 - 4.5 mg/dL [facility] Blood 10/17/2023 1:27 PM BUILDING ADMIN 10/17/2023 1:37 PM BUILDING ADMIN Dawna Castellanos SENIOR CAREGIVER LAB BLOOD ORDERABLES Ann Marie l Result Performing Organization Address [facility]/ZIP Co de Phone Number [facility] [address] [place] [address] * POCT glucose (10/17/2023 1:25 PM BUILDING ADMIN) Glucose, POC 137 70 - 140 mg/dL [facility] Comment: For Glucose values <35 mg/dl when Hematocrit is >60 mg/dl,the test may not accurately detect significant hypoglycemia,and testing in the Laboratory should be considered if clinically indicated. Blood 10/17/2023 1:25 PM BUILDING ADMIN 10/17/2023 1:25 PM BUILDING ADMIN us Jovani Kat DO LAB POCT ORDERABLES - DE VICE Final Result Performing Organization Address [facility]/ZIP Co de Phone Number [facility] [address] [place] [address] * POC Activated Clotting Time, High Range (10/17/2023 12:26 PM BUILDING ADMIN) [facility] ACT 104 87 - 138 sec [facility] Blood 10/17/2023 12:2 6 PM BUILDING ADMIN 10/17/2023 12:26 PM BUILDING ADMIN us Jaqueline Valero MD LAB BLOOD ORDERABLES Final Result Performing Organization Address [facility] Co de Phone Number [facility] [address] [place] [address] * (ABNORMAL) POC Blood Gas and Chemistries, Arterial - (10/17/2023 12:26 PM BUILDING ADMIN) [facility] pH, Art POC 7.31(L) 7.35 - 7.45 [facility] pCO2, Art POC 48(H) 35 - 45 mmHg [facility] pO2, Art POC 112(H) 80 - 108 mmHg [facility] Na, POC 134(L) 135 - 145 mmol/L [facility] K POC 4.0 3.3 - 4.9 mmol/L [facility] Comment: Interpretive Data This method is not able to assess for hemolysis, which may falsely increase potassium concentrations. If further testing is needed to evaluate this result, consider in-laboratory plasma potassium. Current Interpretive Data was last revised on 2022. Cl, POC 97 97 - 110 mmol/L [facility] Ionized Ca, POC 4.80 4.50 - 5.10 mg/dL [facility] Glucose, POC 147 70 - 199 mg/dL [facility] Lactate, POC 2.9(H) 0.0 - 2.0 mmol/L [facility] O2Hb, Art POC 96.7(H) 90.0 - 95.0 % [facility] Carboxhgb fract 0.8 0.0 - 2.9 % [facility] Methemoglobin 0.6 0.0 - 1.9 % [facility] HHb, POC 1.9 0.0 - 5.0 % [facility] SO2 (oren) arterial 98(H) 90 - 95 % [facility] Total CO2, Art POC 26 22 - 32 mmol/L [facility] BE, art, POC -2.1(L) -2.0 - 2.0 mmol/L [facility] HCO3, Art POC 23 20 - 30 mmol/L [facility] Hct, POC 24.0(L) 38.9 - 50.3 % [facility] Total Hb, POC 8.1(L) 13.0 - 17.5 g/dL [facility] Blood 10/17/2023 12:2 6 PM BUILDING ADMIN 10/17/2023 12:26 PM BUILDING ADMIN Jovani Kat DO LAB POCT ORDERABLES - DE VICE Final Result Performing Organization Address [facility]/ZIP Co de Phone Number [facility] [address] [facility] [place] [address] * Transfuse platelets (10/17/2023 12:24 PM BUILDING ADMIN) Blood Ayden Alan MD BLOOD TRANSFUSION ORDERABLES F inal Result [facility] [address] [facility] [place], [place] [id number] * Transfuse RBC (10/17/2023 12:11 PM BUILDING ADMIN) Blood us Ayden Alan MD BLOOD TRANSFUSION ORDERABLES F inal Result [facility] [address] [facility] [place], [place] [id number] * Prepare RBC: 2 Units (10/17/2023 12:11 PM BUILDING ADMIN) Product code [id number] Unit Number [id number] [facility] Product Blood Type APOS [facility] Dispense Status PRESUMED TRANSFUSED [facility] Product code [id number] [facility] Unit Number [id number] [facility] Product Blood [facility] Dispense Status PRESUMED TRANSFUSED [facility] Blood 10/17/2023 12:1 1 PM BUILDING ADMIN Narrative [facility] - 10/18/2023 10:15 PM BUILDING ADMIN Are special requirements needed? (All products are leukoreduced and CMV- safe)- >No Date required:-[id number] LRRBC # of [id number] Reasons:-Intra-op transfusion} Jaqueline Valero MD BLOOD BANK PRODUCT ORDERAB LES Final Result Performing Organization Address [facility] Co de Phone Number [facility] [address] [place], [place] [phone] * Transfuse cryoprecipitate (pooled units) (10/17/2023 12:05 PM BUILDING ADMIN) Blood Ayden Alan MD BLOOD TRANSFUSION ORDERABLES F inal Result Performing Organization Address [facility]/ZIP Co de Phone Number [facility] [address] [place] [address] * Transfuse cryoprecipitate (pooled units) (10/17/2023 12:05 PM BUILDING ADMIN) Blood us Ayden Alan MD BLOOD TRANSFUSION ORDERABLES F inal Result Performing Organization Address [facility]/ZIP Co de Phone Number [facility] [address] [place] [address] * Transfuse plasma (10/17/2023 12:04 PM BUILDING ADMIN) Blood Ayden Alan MD BLOOD TRANSFUSION ORDERABLES F inal Result [facility] [address] [place] [address] * Transfuse plasma (10/17/2023 12:04 PM BUILDING ADMIN) Blood Ayden Alan MD BLOOD TRANSFUSION ORDERABLES F inal Result Performing Organization Address [facility] Co de Phone Number [facility] [address] [place] [address] * (ABNORMAL) POC Blood Gas and Chemistries, Arterial - (10/17/2023 11:51 AM BUILDING ADMIN) pH, Art POC 7.36 7.35 - 7.45 [facility] pCO2, Art POC 39 35 - 45 mmHg [facility] pO2, Art POC 407(H) 80 - 108 mmHg [facility] Na, POC 131(L) 135 - 145 mmol/L [facility] K POC 5.5(H) 3.3 - 4.9 mmol/L [facility] Comment: Interpretive Data This method is not able to assess for hemolysis, which may falsely increase potassium concentrations. If further testing is needed to evaluate this result, consider in-laboratory plasma potassium. Current Interpretive Data was last revised on 2022. Cl, POC 97 97 - 110 mmol/L [facility] Ionized Ca, POC 3.99(L) 4.50 - 5.10 mg/dL [facility] Glucose, POC 115 70 - 199 mg/dL [facility] Lactate, POC 2.8(H) 0.0 - 2.0 mmol/L [facility] O2Hb, Art POC 97.2(H) 90.0 - 95.0 % [facility] Carboxhgb fract 0.0 0.0 - 2.9 % [facility] Methemoglobin 0.9 0.0 - 1.9 % [facility] HHb, POC 1.9 0.0 - 5.0 % [facility] SO2 (oren) arterial 98(H) 90 - 95 % [facility] Total CO2, Art POC 23 22 - 32 mmol/L [facility] BE, art, POC -3.2(L) -2.0 - 2.0 mmol/L [facility] HCO3, Art POC 22 20 - 30 mmol/L [facility] Hct, POC 24.0(L) 38.9 - 50.3 % [facility] Total Hb, POC 7.9(L) 13.0 - 17.5 g/dL [facility] Blood 10/17/2023 11:5 1 AM BUILDING ADMIN 10/17/2023 11:51 AM BUILDING ADMIN us Jovani Kat DO LAB POCT ORDERABLES - DE VICE Final Result Performing Organization Address [facility]/ZIP Co de Phone Number [facility] [address] [place] [address] * (ABNORMAL) POC Activated Clotting Time, High Range (10/17/2023 11:50 AM BUILDING ADMIN) ACT 507(H) 87 - 138 sec [facility] Blood 10/17/2023 11:5 0 AM BUILDING ADMIN 10/17/2023 11:50 AM BUILDING ADMIN Jaqueline Valero MD LAB BLOOD ORDERABLES Final Result Performing Organization Address [facility]/ZIP Co de Phone Number [facility] [address] [place] [address] * (ABNORMAL) POC Activated Clotting Time, High Range (10/17/2023 11:22 AM BUILDING ADMIN) ACT 582(H) 87 - 138 sec [facility] Blood 10/17/2023 11:2 2 AM BUILDING ADMIN 10/17/2023 11:22 AM BUILDING ADMIN Jaqueline Valero MD LAB BLOOD ORDERABLES Final Result [facility] [address] [place] [address] * (ABNORMAL) POC Blood Gas and Chemistries, Arterial - (10/17/2023 11:20 AM BUILDING ADMIN) pH, Art POC 7.32(L) 7.35 - 7.45 [facility] pCO2, Art POC 41 35 - 45 mmHg [facility] pO2, Art POC 362(H) 80 - 108 mmHg [facility] Na, POC 130(L) 135 - 145 mmol/L [facility] K POC 4.5 3.3 - 4.9 mmol/L [facility] Comment: Interpretive Data This method is not able to assess for hemolysis, which may falsely increase potassium concentrations. If further testing is needed to evaluate this result, consider in-laboratory plasma potassium. Current Interpretive Data was last revised on 2022. Cl, POC 97 97 - 110 mmol/L [facility] Ionized Ca, POC 4.19(L) 4.50 - 5.10 mg/dL [facility] Glucose, POC 133 70 - 199 mg/dL [facility] Lactate, POC 2.1(H) 0.0 - 2.0 mmol/L [facility] O2Hb, Art POC 97.8(H) 90.0 - 95.0 % [facility] Carboxhgb fract 0.1 0.0 - 2.9 % [facility] Methemoglobin 0.5 0.0 - 1.9 % [facility] HHb, POC 1.6 0.0 - 5.0 % [facility] SO2 (oren) arterial 98(H) 90 - 95 % [facility] Total CO2, Art POC 22 22 - 32 mmol/L [facility] BE, art, POC -4.7(L) -2.0 - 2.0 mmol/L [facility] HCO3, Art POC 21 20 - 30 mmol/L [facility] Hct, POC 25.0(L) 38.9 - 50.3 % [facility] Total Hb, POC 8.2(L) 13.0 - 17.5 g/dL [facility] Blood 10/17/2023 11:2 0 AM BUILDING ADMIN 10/17/2023 11:20 AM BUILDING ADMIN Jovani Kat DO LAB POCT ORDERABLES - DE VICE Final Result Performing Organization Address [facility] Co de Phone Number [facility] [address] [facility] [place] [address] * (ABNORMAL) POC Activated Clotting Time, High Range (10/17/2023 11:05 AM BUILDING ADMIN) ACT 533(H) 87 - 138 sec [facility] Blood 10/17/2023 11:0 5 AM BUILDING ADMIN 10/17/2023 11:05 AM BUILDING ADMIN Jaqueline Valero MD LAB BLOOD ORDERABLES Final Result Performing Organization Address [facility] Co de Phone Number [facility] [address] [facility] [place] [address] * (ABNORMAL) POC Activated Clotting Time, High Range (10/17/2023 10:53 AM BUILDING ADMIN) ACT 494(H) 87 - 138 sec [facility] Blood 10/17/2023 10:5 3 AM BUILDING ADMIN 10/17/2023 10:53 AM BUILDING ADMIN Jaqueline Valero MD LAB BLOOD ORDERABLES Final Result Performing Organization Address [facility] Co de Phone Number [facility] [address] [facility] [place] [address] * (ABNORMAL) POC Activated Clotting Time, High Range (10/17/2023 10:38 AM BUILDING ADMIN) ACT 583(H) 87 - 138 sec [facility] Blood 10/17/2023 10:3 8 AM BUILDING ADMIN 10/17/2023 10:38 AM BUILDING ADMIN us Jaqueline Valero MD LAB BLOOD ORDERABLES Final Result [facility] [address] Department [place] [address] * (ABNORMAL) POC Blood Gas and Chemistries, Arterial - (10/17/2023 10:38 AM BUILDING ADMIN) pH, Art POC 7.34(L) 7.35 - 7.45 [facility] pCO2, Art POC 42 35 - 45 mmHg [facility] pO2, Art POC 357(H) 80 - 108 mmHg [facility] Na, POC 132(L) 135 - 145 mmol/L [facility] K POC 4.7 3.3 - 4.9 mmol/L [facility] Comment: Interpretive Data This method is not able to assess for hemolysis, which may falsely increase potassium concentrations. If further testing is needed to evaluate this result, consider in-laboratory plasma potassium. Current Interpretive Data was last revised on 2022. Cl, POC 96(L) 97 - 110 mmol/L [facility] Ionized Ca, POC 4.18(L) 4.50 - 5.10 mg/dL [facility] Glucose, POC 170 70 - 199 mg/dL [facility] Lactate, POC 1.8 0.0 - 2.0 mmol/L [facility] O2Hb, Art POC 97.7(H) 90.0 - 95.0 % [facility] Carboxhgb fract 0.0 0.0 - 2.9 % [facility] Methemoglobin 0.7 0.0 - 1.9 % [facility] HHb, POC 1.5 0.0 - 5.0 % [facility] SO2 (oren) arterial 98(H) 90 - 95 % [facility] Total CO2, Art POC 24 22 - 32 mmol/L [facility] BE, art, POC -2.9(L) -2.0 - 2.0 mmol/L [facility] HCO3, Art POC 23 20 - 30 mmol/L [facility] Hct, POC 24.0(L) 38.9 - 50.3 % [facility] Total Hb, POC 8.0(L) 13.0 - 17.5 g/dL [facility] Blood 10/17/2023 10:3 8 AM BUILDING ADMIN 10/17/2023 10:38 AM BUILDING ADMIN us Jovani Kat DO LAB POCT ORDERABLES - DE VICE Final Result Performing Organization Address [facility]/ZIP Co de Phone Number [facility] [address] [place] [address] * (ABNORMAL) POC Activated Clotting Time, High Range (10/17/2023 10:24 AM BUILDING ADMIN) ACT 505(H) 87 - 138 sec [facility] Blood 10/17/2023 10:2 4 AM BUILDING ADMIN 10/17/2023 10:24 AM BUILDING ADMIN Jaqueline Valero MD LAB BLOOD ORDERABLES Final Result Performing Organization Address [facility]/ZIP Co de Phone Number [facility] [address] [place] [address] * (ABNORMAL) POC Blood Gas and Chemistries, Venous - (10/17/2023 10:21 AM BUILDING ADMIN) pH, Juice POC 7.27(L) 7.32 - 7.45 [facility] pCO2, juice POC 53(H) 40 - 50 mmHg [facility] pO2, juice POC 43(H) 35 - 42 mmHg [facility] Na, POC 133(L) 135 - 145 mmol/L [facility] K POC 4.9 3.3 - 4.9 mmol/L [facility] Comment: Interpretive Data This method is not able to assess for hemolysis, which may falsely increase potassium concentrations. If further testing is needed to evaluate this result, consider in-laboratory plasma potassium. Current Interpretive Data was last revised on 2022. Cl, POC 95(L) 97 - 110 mmol/L [facility] Ionized Ca, POC 4.19(L) 4.50 - 5.10 mg/dL [facility] Glucose, POC 182 70 - 199 mg/dL [facility] Lactate, POC 1.5 0.0 - 2.0 mmol/L [facility] O2Hb, Juice POC 67.4(L) 90.0 - 95.0 % [facility] Carboxhgb fract 0.8 0.0 - 2.9 % [facility] Methemoglobin 0.7 0.0 - 1.9 % [facility] HHb, POC 31.0(H) 0.0 - 5.0 % [facility] O2 Sat, Juice POC (Oren) 68 68 - 77 % [facility] Total CO2, juice POC 26 22 - 32 mmol/L [facility] Base excess, juice POC -2.6 mmol/L [facility] HCO3, Juice POC 22 20 - 30 mmol/L [facility] Hct, POC 23.0(L) 38.9 - 50.3 % [facility] Total Hb, POC 7.6(L) 13.0 - 17.5 g/dL [facility] Blood 10/17/2023 10:2 1 AM BUILDING ADMIN 10/17/2023 10:21 AM BUILDING ADMIN us Jovani Kat DO LAB POCT ORDERABLES - DE VICE Final Result Performing Organization Address City/[facility]/ZIP Co de Phone Number [facility] [address] [place] [address] * (ABNORMAL) POC Activated Clotting Time, High Range (10/17/2023 10:12 AM BUILDING ADMIN) ACT 467(H) 87 - 138 sec [facility] Blood 10/17/2023 10:1 2 AM BUILDING ADMIN 10/17/2023 10:12 AM BUILDING ADMIN us Jaqueline Valero MD LAB BLOOD ORDERABLES Final Result [facility] [address] [place] [address] * (ABNORMAL) POC Blood Gas and Chemistries, Arterial - (10/17/2023 10:11 AM BUILDING ADMIN) pH, Art POC 7.25(L) 7.35 - 7.45 [facility] pCO2, Art POC 40 35 - 45 mmHg [facility] pO2, Art POC 400(H) 80 - 108 mmHg [facility] Na, POC 129(L) 135 - 145 mmol/L [facility] K POC 4.6 3.3 - 4.9 mmol/L [facility] Comment: Interpretive Data This method is not able to assess for hemolysis, which may falsely increase potassium concentrations. If further testing is needed to evaluate this result, consider in-laboratory plasma potassium. Current Interpretive Data was last revised on 2022. Cl, POC 96(L) 97 - 110 mmol/L [facility] Ionized Ca, POC 4.08(L) 4.50 - 5.10 mg/dL [facility] Glucose, POC 182 70 - 199 mg/dL [facility] Lactate, POC 1.3 0.0 - 2.0 mmol/L [facility] O2Hb, Art POC 98.1(H) 90.0 - 95.0 % [facility] Carboxhgb fract 0.3 0.0 - 2.9 % [facility] Methemoglobin 0.6 0.0 - 1.9 % [facility] HHb, POC 0.9 0.0 - 5.0 % [facility] SO2 (oren) arterial 99(H) 90 - 95 % [facility] Total CO2, Art POC 19(L) 22 - 32 mmol/L [facility] BE, art, POC -9.0(L) -2.0 - 2.0 mmol/L [facility] HCO3, Art POC 18(L) 20 - 30 mmol/L [facility] Hct, POC 22.0(L) 38.9 - 50.3 % [facility] Total Hb, POC 7.4(L) 13.0 - 17.5 g/dL [facility] Blood 10/17/2023 10:1 1 AM BUILDING ADMIN 10/17/2023 10:11 AM BUILDING ADMIN us Jovani Kat DO LAB POCT ORDERABLES - DE VICE Final Result [facility] [address] [place] [address] * (ABNORMAL) POC Blood Gas and Chemistries, Arterial - (10/17/2023 9:47 AM BUILDING ADMIN) pH, Art POC 7.30(L) 7.35 - 7.45 [facility] pCO2, Art POC 40 35 - 45 mmHg [facility] pO2, Art POC 65(L) 80 - 108 mmHg [facility] Na, POC 130(L) 135 - 145 mmol/L [facility] K POC 4.3 3.3 - 4.9 mmol/L [facility] Comment: Interpretive Data This method is not able to assess for hemolysis, which may falsely increase potassium concentrations. If further testing is needed to evaluate this result, consider in-laboratory plasma potassium. Current Interpretive Data was last revised on 2022. Cl, POC 97 97 - 110 mmol/L [facility] Ionized Ca, POC 4.39(L) 4.50 - 5.10 mg/dL [facility] Glucose, POC 202(H) 70 - 199 mg/dL [facility] Lactate, POC 1.1 0.0 - 2.0 mmol/L [facility] O2Hb, Art POC 90.8 90.0 - 95.0 % [facility] Carboxhgb fract 0.7 0.0 - 2.9 % [facility] Methemoglobin 0.0 0.0 - 1.9 % [facility] HHb, POC 8.5(H) 0.0 - 5.0 % [facility] SO2 (oren) arterial 91 90 - 95 % [facility] Total CO2, Art POC 21(L) 22 - 32 mmol/L [facility] BE, art, POC -6.2(L) -2.0 - 2.0 mmol/L [facility] HCO3, Art POC 20 20 - 30 mmol/L [facility] Hct, POC 26.0(L) 38.9 - 50.3 % [facility] Total Hb, POC 8.6(L) 13.0 - 17.5 g/dL [facility] Blood 10/17/2023 9:47 AM BUILDING ADMIN 10/17/2023 9:47 AM BUILDING ADMIN us Jovani Kat DO LAB POCT ORDERABLES - DE VICE Final Result Performing Organization Address [facility] Co de Phone Number [facility] [address] [place] [address] * (ABNORMAL) POC Activated Clotting Time, High Range (10/17/2023 9:44 AM BUILDING ADMIN) ACT 428(H) 87 - 138 sec [facility] Blood 10/17/2023 9:44 AM BUILDING ADMIN 10/17/2023 9:44 AM BUILDING ADMIN us Jaqueline Valero MD LAB BLOOD ORDERABLES Final Result Performing Organization Address [facility] Co de Phone Number [facility] [address] [place] [address] * Prepare cryoprecipitate (pooled units): 2 Units (10/17/2023 9:12 AM BUILDING ADMIN) [facility] Product code [id number] Unit Number [id number]- M [facility] Product Blood Type OPOS [facility] Dispense Status PRESUMED TRANSFUSED [facility] Product code [id number] [facility] Unit Number [id number]- I [facility] Product Blood Type OPOS [facility] Dispense Status PRESUMED TRANSFUSED [facility] Blood (Blood, Venous) 10/17/2023 9:12 AM BUILDING ADMIN Narrative [facility] - 10/17/2023 10:15 PM BUILDING ADMIN Other indication->CTOR Cryo # of [id number] Reasons:-Other (Specify)} us Ayden Alan MD BLOOD BANK PRODUCT ORDERABLES Final Result Performing Organization Address [facility] Co de Phone Number [facility] [address] [place] [address] * Prepare plasma: 2 Units (10/17/2023 9:12 AM BUILDING ADMIN) Product code [id number] [facility] Unit Number [id number]- Y [facility] Product Blood Type APOS [facility] Dispense Status PRESUMED TRANSFUSED [facility] Product code [id number] Unit Number [id number]- N [facility] Product Blood Type ANEG [facility] Dispense Status PRESUMED TRANSFUSED [facility] Blood (Blood, Venous) 10/17/2023 9:12 AM BUILDING ADMIN Narrative [facility] - 10/17/2023 10:15 PM BUILDING ADMIN Other indication->CTOR Date required:-20231017 FFP # of Units:-2-Units Reasons:-Other (Specify)} Ayden Alan MD BLOOD BANK PRODUCT ORDERABLES Final Result Performing Organization Address [facility] de Phone Number [facility] [address] [facility] [place] [address] * Prepare platelets: 1 Units (10/17/2023 9:12 AM BUILDING ADMIN) Product code [id number] Unit Number [id number]- A [facility] Product Blood Type BPOS [facility] Dispense Status PRESUMED TRANSFUSED [facility] Blood (Blood, Venous) 10/17/2023 9:12 AM BUILDING ADMIN Narrative [facility] - 10/17/2023 10:15 PM BUILDING ADMIN Other indication->CTOR Are special requirements needed? (all products are leukoreduced)->No Date required:-20231017 PLT # of Units:-1-Units Reasons:-Other (Specify)} Ayden Alan MD BLOOD BANK PRODUCT ORDERABLES Final Result Performing Organization Address [facility] de Phone Number [facility] [address] [place] [address] * POC Activated Clotting Time, High Range (10/17/2023 8:19 AM BUILDING ADMIN) [facility] ACT 97 87 - 138 sec [facility] Blood 10/17/2023 8:19 AM BUILDING ADMIN 10/17/2023 8:19 AM BUILDING ADMIN Jaqueline Valero MD LAB BLOOD ORDERABLES Final Result Performing Organization Address [facility] de Phone Number [facility] [address] Department [place] [address] * (ABNORMAL) POCT glucose (10/17/2023 7:47 AM BUILDING ADMIN) [facility] Glucose, POC 279(H) 70 - 140 mg/dL [facility] Comment: For Glucose values <35 mg/dl when Hematocrit is >60 mg/dl,the test may not accurately detect significant hypoglycemia,and testing in the Laboratory should be considered if clinically indicated. Blood 10/17/2023 7:47 AM BUILDING ADMIN 10/17/2023 7:47 AM BUILDING ADMIN Result [facility] Jovani Kat DO LAB POCT ORDERABLES - DE VICE Final Result Performing Organization Address [facility] de Phone Number [facility] [address] Department [place] [address] * (ABNORMAL) POCT glucose (10/17/2023 5:50 AM BUILDING ADMIN) [facility] Glucose, POC 307(H) 70 - 140 mg/dL [facility] Comment: For Glucose values <35 mg/dl when Hematocrit is >60 mg/dl,the test may not accurately detect significant hypoglycemia,and testing in the Laboratory should be considered if clinically indicated. Blood 10/17/2023 5:50 AM BUILDING ADMIN 10/17/2023 5:50 AM BUILDING ADMIN Frank Cody MD LAB POCT ORDERABLES - DEVICE Fin al Result Performing Organization Address [facility]/State/ZIP Co de Phone Number [facility] [address] Department [place] [address] * US Carotids (10/17/2023 5:10 AM BUILDING ADMIN) Anatomical Region Laterality Modality Vascular Bilateral Ultrasound 10/17/2023 1:01 PM BUILDING ADMIN Impressions 10/17/2023 1:01 PM BUILDING ADMIN 1) ??Plaquing of the right internal carotid artery that is consistent with a less than 50% stenosis by duplex criteria 2) ??Plaquing of the left internal carotid artery that is consistent with a less than 50% stenosis by duplex criteria 3) ??Vertebral arteries demonstrate antegrade flow on the right, and antegrade flow on the left. 4) ??No comparison available. The estimated degree of stenosis of the internal carotid arteries reported on this examination is based on the diagnostic criteria proposed by the Society of Radiologists in Ultrasound (SRU) Consensus Conference. Electronically signed by: MD Luis Snyder 10/17/2023 1:01 PM BUILDING ADMIN DATE:10/17/2023 4:30 AM EXAM: Duplex imaging of the carotid arteries. INDICATION: Pre-op eval. COMPARISON STUDY DATE: None available IMAGE QUALITY: Good FINDINGS: RIGHT SIDE: B/P: Not recorded Right: B-mode imaging demonstrates complex plaque morphology in the right common carotid artery. The right common carotid artery peak systolic velocity is ??78.8 cm/sec. B-mode imaging demonstrates complex plaque morphology in the right internal carotid artery. The right internal carotid artery peak systolic velocity is 78.6 cm/ sec. The end diastolic velocity is 15.6 cm/s. The right internal carotid artery to common carotid artery ratio is 1.0. The right external carotid artery peak systolic velocity is 124 cm/sec. The right vertebral artery demonstrates antegrade flow. Incidental findings: None. LEFT SIDE: B/P: Not recorded Left: B-mode imaging demonstrates complex plaque morphology in the left common carotid artery. The left common carotid artery peak systolic velocity is ??83.6 cm/sec. B-mode imaging demonstrates complex plaque morphology in the left internal carotid artery. The left internal carotid artery peak systolic velocity is 66.8 cm/ sec. The end diastolic velocity is 11.6 cm/s. The left internal carotid artery to common carotid artery ratio is 0.8. The left external carotid artery peak systolic velocity is 129.9 cm/sec. The left vertebral artery demonstrates antegrade flow. Incidental findings:None. Procedure Note Ana Pastor MD - 10/17/2023 DATE:10/17/2023 4:30 AM EXAM: Duplex imaging of the carotid arteries. INDICATION: Pre-op eval. COMPARISON STUDY DATE: None available IMAGE QUALITY: Good FINDINGS: RIGHT SIDE: B/P: Not recorded Right: B-mode imaging demonstrates complex plaque morphology in the right common carotid artery. The right common carotid artery peak systolic velocity is 78.8 cm/sec. B-mode imaging demonstrates complex plaque morphology in the right internal carotid artery. The right internal carotid artery peak systolic velocity is 78.6 cm/ sec. The end diastolic velocity is 15.6 cm/s. The right internal carotid artery to common carotid artery ratio is 1.0. The right external carotid artery peak systolic velocity is 124 cm/sec. The right vertebral artery demonstrates antegrade flow. Incidental findings: None. LEFT SIDE: B/P: Not recorded Left: B-mode imaging demonstrates complex plaque morphology in the left common carotid artery. The left common carotid artery peak systolic velocity is 83.6 cm/sec. B-mode imaging demonstrates complex plaque morphology in the left internal carotid artery. The left internal carotid artery peak systolic velocity is 66.8 cm/ sec. The end diastolic velocity is 11.6 cm/s. The left internal carotid artery to common carotid artery ratio is 0.8. The left external carotid artery peak systolic velocity is 129.9 cm/sec. The left vertebral artery demonstrates antegrade flow. Incidental findings:None. IMPRESSION: 1) Plaquing of the right internal carotid artery that is consistent with a less than 50% stenosis by duplex criteria 2) Plaquing of the left internal carotid artery that is consistent with a less than 50% stenosis by duplex criteria 3) Vertebral arteries demonstrate antegrade flow on the right, and antegrade flow on the left. 4) No comparison available. The estimated degree of stenosis of the internal carotid arteries reported on this examination is based on the diagnostic criteria proposed by the Society of Radiologists in Ultrasound (SRU) Consensus Conference. Electronically signed by: Ana Pastor MD Jaqueline Valero MD IMG US PROCEDURES Final Re sult * (ABNORMAL) POCT glucose (10/17/2023 2:29 AM BUILDING ADMIN) Glucose, POC 288(H) 70 - 140 mg/dL [facility] Comment: For Glucose values <35 mg/dl when Hematocrit is >60 mg/dl,the test may not accurately detect significant hypoglycemia,and testing in the Laboratory should be considered if clinically indicated. Blood 10/17/2023 2:29 AM BUILDING ADMIN 10/17/2023 2:29 AM BUILDING ADMIN Frank Cody MD LAB POCT ORDERABLES - DEVICE Fin al Result Performing Organization Address [facility] Co de Phone Number [facility] [address] [place] [address] * (ABNORMAL) POCT glucose (10/17/2023 12:51 AM BUILDING ADMIN) Glucose, POC 242(H) 70 - 140 mg/dL [facility] Comment: For Glucose values <35 mg/dl when Hematocrit is >60 mg/dl,the test may not accurately detect significant hypoglycemia,and testing in the Laboratory should be considered if clinically indicated. Blood 10/17/2023 12:5 1 AM BUILDING ADMIN 10/17/2023 12:51 AM BUILDING ADMIN Frank Cody MD LAB POCT ORDERABLES - DEVICE Fin al Result Performing Organization Address [facility] Co de Phone Number [facility] [address] [place] [address] * (ABNORMAL) Differential, auto (10/17/2023 12:29 AM BUILDING ADMIN) Neutrophil abs 6.4 1.5 - 6.5 K/cumm [facility] Imm gran abs 0.2(H) 0.0 - 0.1 K/cumm [facility] Lymphocyte abs 1.6 0.8 - 3.3 K/cumm [facility] Monocyte abs 1.1(H) 0.2 - 0.8 K/cumm [facility] Eosinophil abs 0.3 0.0 - 0.5 K/cumm [facility] Basophil abs 0.0 0.0 - 0.1 K/cumm [facility] Neutrophil pct 66.0 % [facility] Comment: Interpretive Data Percent cell count reference ranges are not reported, since discordance with absolute values may lead to misinterpretation of CBC data. Current Interpretive Data was last revised on 2017. Imm gran pct 2.1 % [facility] Comment: Interpretive Data Percent cell count reference ranges are not reported, since discordance with absolute values may lead to misinterpretation of CBC data. Current Interpretive Data was last revised on 2017. Lymphocyte pct 16.8 % [facility] Comment: Interpretive Data Percent cell count reference ranges are not reported, since discordance with absolute values may lead to misinterpretation of CBC data. Current Interpretive Data was last revised on 2017. Monocyte pct 11.6 % [facility] Comment: Interpretive Data Percent cell count reference ranges are not reported, since discordance with absolute values may lead to misinterpretation of CBC data. Current Interpretive Data was last revised on 2017. Eosinophil pct 3.1 % [facility] Comment: Interpretive Data Percent cell count reference ranges are not reported, since discordance with absolute values may lead to misinterpretation of CBC data. Current Interpretive Data was last revised on 2017. Basophil pct 0.4 % [facility] Comment: Interpretive Data Percent cell count reference ranges are not reported, since discordance with absolute values may lead to misinterpretation of CBC data. Current Interpretive Data was last revised on 2017. Blood 10/17/2023 12:2 9 AM BUILDING ADMIN 10/17/2023 12:42 AM BUILDING ADMIN us Vinay Pratt DO LAB BLOOD ORDERABLES F inal Result [facility] [address] [place] [address] * (ABNORMAL) aPTT (10/17/2023 12:29 AM BUILDING ADMIN) Pathologist [facility] aPTT 92(H) 28 - 38 sec [facility] Comment: Interpretive Data Heparin therapeutic range: 66.0 - 100.0 seconds. Range based on correlation with therapeutic heparin activity range of 0.3 - 0.7 Units/mL. Current interpretive data was last revised on 2023. Blood 10/17/2023 12:2 9 AM BUILDING ADMIN 10/17/2023 12:43 AM BUILDING ADMIN us Frank Cody MD LAB BLOOD ORDERABLES Final Resul t Performing Organization Address [facility] Co de Phone Number [facility] [address] [place] [address] * (ABNORMAL) CBC with auto differential (10/17/2023 12:29 AM BUILDING ADMIN) [facility] WBC 9.7 3.8 - 9.9 K/cumm [facility] Hgb 9.0(L) 13.0 - 17.5 g/dL [facility] Hct 27.4(L) 38.9 - 50.3 % [facility] Plt 289 150 - 400 K/cumm [facility] MPV 10.7 9.1 - 12.3 fL [facility] RBC 3.04(L) 4.30 - 5.80 M/cumm [facility] MCV 90.1 81.3 - 96.4 fL [facility] MCH 29.6 27.1 - 33.3 pg [facility] MCHC 32.8 32.3 - 35.7 g/dL [facility] RDW CV 14.7 11.1 - 14.9 % [facility] RDW SD 46.4 35.7 - 48.1 fL [facility] NRBC abs 0.03(H) 0.00 - 0.01 K/cumm [facility] Blood 10/17/2023 12:2 9 AM BUILDING ADMIN 10/17/2023 12:42 AM BUILDING ADMIN Vinay Pratt DO LAB BLOOD ORDERABLES F inal Result Performing Organization Address City/[facility] Co de Phone Number [facility] [address] [facility] [place] [address] * Type and screen (10/16/2023 7:51 PM BUILDING ADMIN) Maribel, indirect Negative ABO Rh A Positive [facility] Blood 10/16/2023 7:51 PM BUILDING ADMIN 10/16/2023 8:09 PM BUILDING ADMIN us Frank Cody MD LAB BLOOD BANK TEST ORDERABLES F inal Result Performing Organization Address [facility] Co de Phone Number [facility] [address] [facility] [place], [place] [phone] * POCT glucose (10/16/2023 7:49 PM BUILDING ADMIN) Glucose, POC 114 70 - 140 mg/dL [facility] Comment: For Glucose values <35 mg/dl when Hematocrit is >60 mg/dl,the test may not accurately detect significant hypoglycemia,and testing in the Laboratory should be considered if clinically indicated. Blood 10/16/2023 7:49 PM BUILDING ADMIN 10/16/2023 7:49 PM BUILDING ADMIN us Frank Cody MD LAB POCT ORDERABLES - DEVICE Fin al Result Performing Organization Address [facility] Co de Phone Number [facility] [address] [facility] [place] [address] * POCT glucose (10/16/2023 5:35 PM BUILDING ADMIN) Glucose, POC 76 70 - 140 mg/dL [facility] Comment: For Glucose values <35 mg/dl when Hematocrit is >60 mg/dl,the test may not accurately detect significant hypoglycemia,and testing in the Laboratory should be considered if clinically indicated. Blood 10/16/2023 5:35 PM BUILDING ADMIN 10/16/2023 5:35 PM BUILDING ADMIN us Frank Cody MD LAB POCT ORDERABLES - DEVICE Fin al Result [facility] [address] [place] [address] * TRANSTHORACIC ECHO (TTE) COMPLETE W DOPPLER/CF W CONTRAST (10/16/2023 4:47 PM BUILDING ADMIN) Anatomical Region Laterality Modality Ultrasound 10/16/2023 11:3 9 AM BUILDING ADMIN Narrative 10/16/2023 5:02 PM BUILDING ADMIN [facility] [address] [place] [address] ECHOCARDIOGRAM Patient Name: JUVENAL GAVRIN C : 1970 Study Date: 10/16/2023 11:39:54 AM Gender: M Tech: Location: [address] Provider: GUERLINE RODRIGUEZ ?Height(Cm): 178 BSA: 2.5 Weight(Kg): 126.1 BP: 125/75 ?Order Provider: GUERLINE RODRIGUEZ - PROCEDURES: Echocardiographic Report: Transthoracic Echocardiogram with 2D, M-Mode, Spectral and Color Flow Doppler examination and administration of intravenous contrast. INDICATIONS: Coronary artery disease, [place] vessel. Measurements: 2D/M Mode ? Doppler Measurement ?Value ?Normal Range ?Measurement ? Value ?Normal Range LVPWd 2D ? 1.43 ? [ 0.60 - 1.00 ] cm ?AV Peak Robe ? 2.9 ?[ 1.0 - 1.7 ] m/s LA Dimension 2D ?4.47 ? [ 3.00 - 4.00 ] cm ?AV Peak PG ?33 ? mmHg AoR Diam 2D ?3.45 ? [ 3.10 - 3.70 ] cm ?AV Mean PG ?19 ? mmHg TAPSE ?1.93 ? [ >= 1.71 ] cm ?AV VTI ?64.2 ? cm LARA V max ?1.3 ? cm2 LARA VTI ?1.4 ? cm2 LVOT Peak Robe ?0.99 ?[ 0.70 - 1.10 ] m/s LVOT Diam ?2.2 ? cm LVOT Peak PG ? 4 ? mmHg LVOT VTI ? 23.0 ?cm MV Peak PG ? 8 ? mmHg MV Mean PG ? 2 ? mmHg MV E Peak Robe ?1.4 ? [ 0.6 - 1.3 ] m/s MV A Peak Robe ?0.4 ? [ 1.0 - 1.2 ] m/s MV PHT ? 78.0 ?[ 20.0 - 100.0 ] ms MV Decel Time ?161.4 ? [ 104.0 - 258.0 ] ms MVA PHT ?2.8 ? ms MV E/A Ratio ? 3.5 TR Peak Robe ?3.0 ? [ 1.0 - 2.8 ] m/s TR Peak PG ? 37 ?mmHg RVSP ? 48.6 ?[ 10.0 - 36.0 ] mmHg RA Pressure ?12.0 ?mmHg PV Peak Robe ?1.0 ? [ 0.4 - 0.8 ] m/s PV Peak PG ? 4 ? mmHg Lat E` Robe ? 0.07 ?[ 0.10 - 0.15 ] m/s Sept E' Robe ?0.03 ?[ 0.08 - 0.15 ] m/s E/E` ? 20.00 RV S' ?0.10 ?m/s Measurement ?Value ?Normal Range ?Measurement ? Value ?Normal Range 2D/M Mode ? Doppler - FINDINGS: Study Quality: Technically difficult [...] of the tricuspid leaflets. Mild tricuspid regurgitation. Electronically Signed By: Dimitrios Ames MD, [facility] 2023-10-16 17:01:58 BUILDING ADMIN Procedure Note Dimitrios Ames MD - 10/16/2023 [facility] [address] [place] [address] ECHOCARDIOGRAM Patient Name: JUVENAL GARVIN C : 1970 Study Date: 10/16/2023 11:39:54 AM Gender: M Tech: Location: [address] Ref Provider: GUERLINE RODRIGUEZ Height(Cm): 178 BSA: 2.5 Weight(Kg): 126.1 BP: 125/75 Order Provider: GUERLINE RODRIGUEZ - PROCEDURES: Echocardiographic Report: Transthoracic Echocardiogram with 2D, M-Mode, Spectral and Color FlowDoppler examination and administration of intravenous contrast. INDICATIONS: Coronary artery disease, [place] vessel. Measurements: 2D/M ModeDoppler Measurement Value Normal Range MeasurementValue Normal Range LVPWd 2D 1.43 [ 0.60 - 1.00 ] cm AV Peak Vel2.9 [ 1.0 - 1.7 ] m/s LA Dimension 2D 4.47 [ 3.00 - 4.00 ] cm AV Peak PG33 mmHg AoR Diam 2D 3.45 [ 3.10 - 3.70 ] cm AV Mean PG19 mmHg TAPSE 1.93 [ >= 1.71 ] cm AV VTI64.2 cm LARA V max 1.3 cm2 LARA [...] S' 0.10 m/s Measurement Value Normal Range MeasurementValue Normal Range 2D/M ModeDoppler - FINDINGS: Study Quality: Technically difficult study. Contrast was employed for LV opacificationand endocardial border enhancement. BP: Blood pressure: 125/75 mmHg. Left Ventricle: Severe left ventricular systolic dysfunction. There is global hypokinesis.More focal hypokinesis of the apex. Ejection Fraction is measured at ([place]) 30%. Right Ventricle: Low normal right ventricular systolic function. Left Atrium: There is moderate enlargement of the left atrium. Right Atrium: The right atrium is normal in size. Atrial Septum: Normal appearing atrial septum. Mitral Valve: Normal appearance of the mitral valve leaflets. Mild mitral valveregurgitation. Aortic Valve: Aortic cusps appear moderately calcified. Moderate to severe aorticstenosis. Tricuspid Valve: Normal appearance of the tricuspid leaflets. Mild tricuspidregurgitation. Pulmonic Valve: Pulmonic valve not well visualized. Pericardium: No significant pericardial effusion. Aortic Root and Aorta: Normal caliber aortic root. Aortic Arch: The aortic arch is poorly visualized. IVC: Size and compressability data are discordant suggesting intermediate rightatrial pressures. CONCLUSIONS: 1. Severe left ventricular systolic dysfunction. There is globalhypokinesis. More focal hypokinesis of the apex Ejection Fraction is measured at ([place]) 30%. 2. Normal appearance of the mitral valve leaflets. Mild mitral valveregurgitation. 3. Aortic cusps appear moderately calcified. Moderate to severe aorticstenosis. 4. Normal appearance of the tricuspid leaflets. Mild tricuspidregurgitation. Electronically Signed By: Dimitrios Ames MD, [facility] 2023-10-16 17:01:58 BUILDING ADMIN us Guerline GRACE CV ECHO PROCEDURES Final Res ult * (ABNORMAL) aPTT (10/16/2023 3:50 PM BUILDING ADMIN) aPTT 73(H) 28 - 38 sec [facility] Comment: Interpretive Data Heparin therapeutic range: 66.0 - 100.0 seconds. Range based on correlation with therapeutic heparin activity range of 0.3 - 0.7 Units/mL. Current interpretive data was last revised on 2023. Blood 10/16/2023 3:50 PM BUILDING ADMIN 10/16/2023 3:50 PM BUILDING ADMIN us Frank Cody MD LAB BLOOD ORDERABLES Final Resul t [facility] [address] [place] [address] * (ABNORMAL) Lipid panel (10/16/2023 3:44 PM BUILDING ADMIN) Cholesterol 89 30 - 199 mg/dL [facility] Comment: Interpretive Data Ages < [...] Data was last revised on 2018. Triglycerides 106 <=149 mg/dL [facility] Comment: Interpretive Data Ages < [...] Data was last revised on 2018. HDL 34(L) >=40 mg/dL [facility] Comment: Interpretive Data Ages < [...] was last revised on 2018. LDL, calculated 34 <=129 mg/dL [facility] Comment: Interpretive Data Ages < or = 19 years ??Acceptable: ? <110 mg/dL ??Borderline high: ??110-129 mg/dL ??High: ?>or= 130 mg/dL Ages > or = 20 years ??Optimal: ? <100 mg/dL ??Near optimal: ?100-129 mg/dL ??Borderline high: ?? 130-159 mg/dL ??High: ?>160 mg/dL Literature References: 1. Expert Panel on Integrated Guidelines for Cardiovascular Health and Risk Reduction in Children and Adolescents. Pediatrics 2011;128:S213 2. NCEP Expert Panel. Circulation 2004;110:227 Current Interpretive Data was last revised on 2018. Non-HDL Cholesterol 55 mg/dL [facility] Comment: Interpretive Data Ages < [...] was last revised on 2018. Chol/HDL ratio 3 [facility] Blood 10/16/2023 3:44 PM BUILDING ADMIN 10/16/2023 3:53 PM BUILDING ADMIN Jaqueline Valero MD LAB BLOOD ORDERABLES Final Result [facility] [address] Department [place] [address] * (ABNORMAL) Hemoglobin A1c (10/16/2023 3:27 PM BUILDING ADMIN) Hgb A1C 8.1(H) 4.0 - 5.6 % [facility] Estimated Average Glucose 186 mg/dL [facility] Comment: The ADA recommends reporting an estimated Average Glucose (eAG) with all Hemoglobin A1c results using the equation derived from a study of 507 normal and diabetic adults. ??Minority populations were underrepresented and children were not included. ?? (Diabetes Care 31:2974-5949, 2008). ??The eAG is not equivalent to a fasting glucose. Blood 10/16/2023 3:27 PM BUILDING ADMIN 10/16/2023 3:27 PM BUILDING ADMIN Jaqueline Valero MD LAB BLOOD ORDERABLES Final Result [facility] [address] Department [place] [address] * XR Chest PA Lateral 2 View (10/16/2023 3:12 PM BUILDING ADMIN) Anatomical Region Laterality Modality Body, Chest N/A Computed Radiogr aphy 10/16/2023 3:15 PM BUILDING ADMIN Impressions 10/16/2023 3:15 PM BUILDING ADMIN Small bilateral pleural effusions with mild bibasilar atelectasis. Small volume fluid tracks into the right minor fissure. ??Mild pulmonary edema. ??No pneumothorax. ??Heart size and mediastinal contours are unchanged. Electronically signed by: Salina Garnica M.D. Narrative 10/16/2023 3:15 PM BUILDING ADMIN EXAMINATION: XR CHEST PA LATERAL 2 VIEWS COMPARISON: 10/15/2023 Procedure Note Salina Garnica MD - 10/16/2023 EXAMINATION: XR CHEST PA LATERAL 2 VIEWS COMPARISON: 10/15/2023 IMPRESSION: Small bilateral pleural effusions with mild bibasilar atelectasis. Small volume fluid tracks into the right minor fissure. Mild pulmonary edema. No pneumothorax. Heart size and mediastinal contours are unchanged. Electronically signed by: Salina Garnica M.D. Jaqueline Valero MD IMG XR PROCEDURES Final Re sult * ECG 12 lead (10/16/2023 2:17 PM BUILDING ADMIN) 10/16/2023 2:17 PM BUILDING ADMIN Narrative [facility] - 10/16/2023 9:14 PM BUILDING ADMIN Vent Rate: 61 bpm RR Interval: 981 msec GA Interval: 235 msec QRS Duration: 150 msec QT Interval: 447 msec QTC Interval: 449 msec P-R-T [place]: 70 - -11 - 134 degrees IMPRESSION: SINUS RHYTHM WITH FIRST DEGREE AV BLOCK LEFT BUNDLE BRANCH BLOCK ABNORMAL ECG Electronically Signed By: Payam White MD us Jaqueline Valero MD ECG ORDERABLES Final Resu lt Performing Organization Address City/[facility]/ZIP Co de Phone Number [facility] * Prepare RBC: 3 Units (10/16/2023 2:04 PM BUILDING ADMIN) Pathologist [facility] Product code [id number] [facility] Unit Number [id number] W [facility] Product Blood Type APOS [facility] Dispense Status PRESUMED TRANSFUSED [facility] Product code [id number] Unit Number [id number] * [facility] Product Blood Type APOS [facility] Dispense Status PRESUMED TRANSFUSED [facility] Product code [id number] [facility] Unit Number [id number] M [facility] Product Blood Type APOS [facility] Dispense Status RETURNED [facility] Blood 10/16/2023 2:04 PM BUILDING ADMIN Narrative [facility] - 10/19/2023 7:08 AM BUILDING ADMIN Specify Procedure:->cabg/aortic valve replacement Are special requirements needed? (All products are leukoreduced and CMV- safe)- >No Date required:-[id number] LRRBC # of [id number] Reasons:-Hold for procedure (specify procedure)} us Jaqueline Valero MD BLOOD BANK PRODUCT ORDERAB LES Final Result Performing Organization Address [facility] Co de Phone Number [facility] [address] Department [place] [address] * POCT glucose (10/16/2023 12:22 PM BUILDING ADMIN) Pathologist [facility] Glucose, POC 74 70 - 140 mg/dL [facility] Comment: For Glucose values <35 mg/dl when Hematocrit is >60 mg/dl,the test may not accurately detect significant hypoglycemia,and testing in the Laboratory should be considered if clinically indicated. Blood 10/16/2023 12:2 2 PM BUILDING ADMIN 10/16/2023 12:22 PM BUILDING ADMIN us Frank Cody MD LAB POCT ORDERABLES - DEVICE Fin al Result Performing Organization Address [facility] de Phone Number [facility] [address] [place] [address] * (ABNORMAL) POCT glucose (10/16/2023 8:11 AM BUILDING ADMIN) Glucose, POC 266(H) 70 - 140 mg/dL [facility] Comment: For Glucose values <35 mg/dl when Hematocrit is >60 mg/dl,the test may not accurately detect significant hypoglycemia,and testing in the Laboratory should be considered if clinically indicated. Blood 10/16/2023 8:11 AM BUILDING ADMIN 10/16/2023 8:11 AM BUILDING ADMIN us Frank Cody MD LAB POCT ORDERABLES - DEVICE Fin al Result Performing Organization Address [facility] de Phone Number [facility] [address] [facility] [place] [address] * (ABNORMAL) POCT glucose (10/16/2023 4:48 AM BUILDING ADMIN) Glucose, POC 329(H) 70 - 140 mg/dL [facility] Comment: For Glucose values <35 mg/dl when Hematocrit is >60 mg/dl,the test may not accurately detect significant hypoglycemia,and testing in the Laboratory should be considered if clinically indicated. Blood 10/16/2023 4:48 AM BUILDING ADMIN 10/16/2023 4:48 AM BUILDING ADMIN us Frank Cody MD LAB POCT ORDERABLES - DEVICE Fin al Result Performing Organization Address [facility] de Phone Number [facility] [address] [facility] [place] [address] * (ABNORMAL) POCT glucose (10/16/2023 12:37 AM BUILDING ADMIN) Glucose, POC 158(H) 70 - 140 mg/dL [facility] Comment: For Glucose values <35 mg/dl when Hematocrit is >60 mg/dl,the test may not accurately detect significant hypoglycemia,and testing in the Laboratory should be considered if clinically indicated. Blood 10/16/2023 12:3 7 AM BUILDING ADMIN 10/16/2023 12:37 AM BUILDING ADMIN Frank Cody MD LAB POCT ORDERABLES - DEVICE Fin al Result [facility] [address] Department [place] [address] * (ABNORMAL) Differential, auto (10/16/2023 12:31 AM BUILDING ADMIN) Neutrophil abs 4.5 1.5 - 6.5 K/cumm [facility] Imm gran abs 0.2(H) 0.0 - 0.1 K/cumm [facility] Lymphocyte abs 1.8 0.8 - 3.3 K/cumm [facility] Monocyte abs 1.0(H) 0.2 - 0.8 K/cumm [facility] Eosinophil abs 0.2 0.0 - 0.5 K/cumm [facility] Basophil abs 0.0 0.0 - 0.1 K/cumm [facility] Neutrophil pct 58.6 % [facility] Comment: Interpretive Data Percent cell count reference ranges are not reported, since discordance with absolute values may lead to misinterpretation of CBC data. Current Interpretive Data was last revised on 2017. Imm gran pct 2.1 % [facility] Comment: Interpretive Data Percent cell count reference ranges are not reported, since discordance with absolute values may lead to misinterpretation of CBC data. Current Interpretive Data was last revised on 2017. Lymphocyte pct 23.1 % [facility] Comment: Interpretive Data Percent cell count reference ranges are not reported, since discordance with absolute values may lead to misinterpretation of CBC data. Current Interpretive Data was last revised on 2017. Monocyte pct 13.2 % [facility] Comment: Interpretive Data Percent cell count reference ranges are not reported, since discordance with absolute values may lead to misinterpretation of CBC data. Current Interpretive Data was last revised on 2017. Eosinophil pct 2.5 % [facility] Comment: Interpretive Data Percent cell count reference ranges are not reported, since discordance with absolute values may lead to misinterpretation of CBC data. Current Interpretive Data was last revised on 2017. Basophil pct 0.5 % [facility] Comment: Interpretive Data Percent cell count reference ranges are not reported, since discordance with absolute values may lead to misinterpretation of CBC data. Current Interpretive Data was last revised on 2017. Blood 10/16/2023 12:3 1 AM BUILDING ADMIN 10/16/2023 12:36 AM BUILDING ADMIN Vinay Pratt DO LAB BLOOD ORDERABLES F inal Result Performing Organization Address [facility] Co de Phone Number [facility] [address] [place] [address] * (ABNORMAL) aPTT (10/16/2023 12:31 AM BUILDING ADMIN) Pathologist [facility] aPTT 80(H) 28 - 38 sec [facility] Comment: Interpretive Data Heparin therapeutic range: 66.0 - 100.0 seconds. Range based on correlation with therapeutic heparin activity range of 0.3 - 0.7 Units/mL. Current interpretive data was last revised on 2023. Blood 10/16/2023 12:3 1 AM BUILDING ADMIN 10/16/2023 12:36 AM BUILDING ADMIN Frank Cody MD LAB BLOOD ORDERABLES Final Resul t Performing Organization Address [facility] Co de Phone Number [facility] [address] Department [place], [place] [id number] * (ABNORMAL) CBC with auto differential (10/16/2023 12:31 AM BUILDING ADMIN) WBC 7.7 3.8 - 9.9 K/cumm [facility] Hgb 9.4(L) 13.0 - 17.5 g/dL [facility] Hct 29.7(L) 38.9 - 50.3 % [facility] Plt 330 150 - 400 K/cumm [facility] MPV 10.9 9.1 - 12.3 fL [facility] RBC 3.24(L) 4.30 - 5.80 M/cumm [facility] MCV 91.7 81.3 - 96.4 fL [facility] MCH 29.0 27.1 - 33.3 pg [facility] MCHC 31.6(L) 32.3 - 35.7 g/dL [facility] RDW CV 14.6 11.1 - 14.9 % [facility] RDW SD 47.2 35.7 - 48.1 fL [facility] NRBC abs 0.03(H) 0.00 - 0.01 K/cumm [facility] Blood 10/16/2023 12:3 1 AM BUILDING ADMIN 10/16/2023 12:36 AM BUILDING ADMIN Vinay Pratt DO LAB BLOOD ORDERABLES F inal Result Performing Organization Address [facility] Co de Phone Number [facility] [address] Department [place], [place] [id number] * Check Sample (10/16/2023 12:27 AM BUILDING ADMIN) Pathologist [facility] ABO Rh A Positive [facility] OTHER 10/16/2023 12:2 7 AM BUILDING ADMIN 10/16/2023 2:18 PM BUILDING ADMIN Frank Cody MD LAB BLOOD ORDERABLES Final Resul t Performing Organization Address [facility] de Phone Number [facility] [address] [place] [address] * POCT glucose (10/15/2023 11:20 PM BUILDING ADMIN) Glucose, POC 105 70 - 140 mg/dL [facility] Comment: For Glucose values <35 mg/dl when Hematocrit is >60 mg/dl,the test may not accurately detect significant hypoglycemia,and testing in the Laboratory should be considered if clinically indicated. Blood 10/15/2023 11:2 0 PM BUILDING ADMIN 10/15/2023 11:20 PM BUILDING ADMIN Frank Cody MD LAB POCT ORDERABLES - DEVICE Fin al Result Performing Organization Address [facility] de Phone Number [facility] [address] Department [place], [place] [id number] * POCT glucose (10/15/2023 11:01 PM BUILDING ADMIN) Glucose, POC 93 70 - 140 mg/dL [facility] Comment: For Glucose values <35 mg/dl when Hematocrit is >60 mg/dl,the test may not accurately detect significant hypoglycemia,and testing in the Laboratory should be considered if clinically indicated. Glucose comment 1 Follow Protocol [facility] Blood 10/15/2023 11:0 1 PM BUILDING ADMIN 10/15/2023 11:01 PM BUILDING ADMIN Frank Cody MD LAB POCT ORDERABLES - DEVICE Fin al Result Performing Organization Address [facility] de Phone Number [facility] [address] [facility] [place] [address] * POCT glucose (10/15/2023 10:45 PM BUILDING ADMIN) Glucose, POC 84 70 - 140 mg/dL [facility] Comment: For Glucose values <35 mg/dl when Hematocrit is >60 mg/dl,the test may not accurately detect significant hypoglycemia,and testing in the Laboratory should be considered if clinically indicated. Glucose comment 1 Follow Protocol [facility] Blood 10/15/2023 10:4 5 PM BUILDING ADMIN 10/15/2023 10:45 PM BUILDING ADMIN Frank Cody MD LAB POCT ORDERABLES - DEVICE Fin al Result Performing Organization Address [facility] de Phone Number [facility] [address] Department [place], [place] [id number] * (ABNORMAL) POCT glucose (10/15/2023 10:26 PM BUILDING ADMIN) Glucose, POC 69(L) 70 - 140 mg/dL [facility] Comment: For Glucose values <35 mg/dl when Hematocrit is >60 mg/dl,the test may not accurately detect significant hypoglycemia,and testing in the Laboratory should be considered if clinically indicated. Blood 10/15/2023 10:2 6 PM BUILDING ADMIN 10/15/2023 10:26 PM BUILDING ADMIN us Frank Cody MD LAB POCT ORDERABLES - DEVICE Fin al Result Performing Organization Address [facility] de Phone Number [facility] [address] Department [place] [address] * POCT glucose (10/15/2023 8:12 PM BUILDING ADMIN) Glucose, POC 73 70 - 140 mg/dL [facility] Comment: For Glucose values <35 mg/dl when Hematocrit is >60 mg/dl,the test may not accurately detect significant hypoglycemia,and testing in the Laboratory should be considered if clinically indicated. Blood 10/15/2023 8:12 PM BUILDING ADMIN 10/15/2023 8:12 PM BUILDING ADMIN Result [facility] us Frank Cody MD LAB POCT ORDERABLES - DEVICE Fin al Result Performing Organization Address [facility] de Phone Number [facility] [address] Department [place] [address] * POCT glucose (10/15/2023 5:10 PM BUILDING ADMIN) Glucose, POC 72 70 - 140 mg/dL [facility] Comment: For Glucose values <35 mg/dl when Hematocrit is >60 mg/dl,the test may not accurately detect significant hypoglycemia,and testing in the Laboratory should be considered if clinically indicated. Blood 10/15/2023 5:10 PM BUILDING ADMIN 10/15/2023 5:10 PM BUILDING ADMIN us Frank Cody MD LAB POCT ORDERABLES - DEVICE Fin al Result Performing Organization Address [facility] Co de Phone Number [facility] [address] [facility] [place] [address] * (ABNORMAL) POCT glucose (10/15/2023 12:13 PM BUILDING ADMIN) Glucose, POC 155(H) 70 - 140 mg/dL [facility] Comment: For Glucose values <35 mg/dl when Hematocrit is >60 mg/dl,the test may not accurately detect significant hypoglycemia,and testing in the Laboratory should be considered if clinically indicated. Blood 10/15/2023 12:1 3 PM BUILDING ADMIN 10/15/2023 12:13 PM BUILDING ADMIN us Frank Cody MD LAB POCT ORDERABLES - DEVICE Fin al Result Performing Organization Address [facility] Co de Phone Number [facility] [address] [facility] [place] [address] * (ABNORMAL) aPTT (10/15/2023 11:25 AM BUILDING ADMIN) aPTT 59(H) 28 - 38 sec [facility] Comment: Interpretive Data Heparin therapeutic range: 66.0 - 100.0 seconds. Range based on correlation with therapeutic heparin activity range of 0.3 - 0.7 Units/mL. Current interpretive data was last revised on 2023. Blood 10/15/2023 11:2 5 AM BUILDING ADMIN 10/15/2023 11:31 AM BUILDING ADMIN us Frank Cody MD LAB BLOOD ORDERABLES Final Resul t Performing Organization Address [facility]/ZIP Co de Phone Number [facility] [address] [facility] [place] [address] * CT Chest WO Contrast (10/15/2023 11:00 AM BUILDING ADMIN) Anatomical Region Laterality Modality Body N/A Computed Tomogra phy 10/15/2023 11:5 8 AM BUILDING ADMIN Impressions 10/15/2023 11:58 AM BUILDING ADMIN 1. ??Small bilateral pleural effusions with mild bibasilar atelectasis. 2. ??Mildly enlarged likely reactive mediastinal lymph nodes. Attention on follow-up is recommended. Electronically signed by: Arjun Amador M.D. Narrative 10/15/2023 11:58 AM BUILDING ADMIN EXAMINATION: ??Computed tomography of the chest without intravenous contrast HISTORY: Coronary artery disease, aortic stenosis, preoperative evaluation. TECHNIQUE: ??Transaxial computed tomographic images of the chest were obtained without intravenous contrast according to the standard protocol. COMPARISON: 06/20/2022 FINDINGS: ?? Small bilateral pleural effusions with mild bibasilar atelectasis. No suspicious pulmonary nodules. ??No pneumothorax. ??Central airways are patent. Cardiomegaly with no pericardial effusion. ??Thoracic aorta is normal in caliber. ??There are mildly enlarged retrotracheal and right lower paratracheal and paraesophageal lymph nodes. Pre-sternotomy measurements: Left brachiocephalic vein is 29 mm posterior to the manubrium. Ascending aorta is 51 mm posterior to the proximal sternum. Right ventricular outflow tract is 7 mm posterior to the distal sternum. Noncontrast imaged upper abdominal viscera show small volume ascites, atrophic kidneys and cholelithiasis. ??No suspicious osseous lesions. Procedure Note Arjun Amador MD - 10/15/2023 EXAMINATION: Computed tomography of the chest without intravenous contrast HISTORY: Coronary artery disease, aortic stenosis, preoperative evaluation. TECHNIQUE: Transaxial computed tomographic images of the chest were obtained without intravenous contrast according to the standard protocol. COMPARISON: 06/20/2022 FINDINGS: Small bilateral pleural effusions with mild bibasilar atelectasis. No suspicious pulmonary nodules. No pneumothorax. Central airways are patent. Cardiomegaly with no pericardial effusion. Thoracic aorta is normal in caliber. There are mildly enlarged retrotracheal and right lower paratracheal and paraesophageal lymph nodes. Pre-sternotomy measurements: Left brachiocephalic vein is 29 mm posterior to the manubrium. Ascending aorta is 51 mm posterior to the proximal sternum. Right ventricular outflow tract is 7 mm posterior to the distal sternum. Noncontrast imaged upper abdominal viscera show small volume ascites, atrophic kidneys and cholelithiasis. No suspicious osseous lesions. IMPRESSION: 1. Small bilateral pleural effusions with mild bibasilar atelectasis. 2. Mildly enlarged likely reactive mediastinal lymph nodes. Attention on follow-up is recommended. Electronically signed by: Arjun Amador M.D. [facility] CT PROCEDURES Final Resu lt * (ABNORMAL) POCT glucose (10/15/2023 7:56 AM BUILDING ADMIN) Glucose, POC 249(H) 70 - 140 mg/dL [facility] Comment: For Glucose values <35 mg/dl when Hematocrit is >60 mg/dl,the test may not accurately detect significant hypoglycemia,and testing in the Laboratory should be considered if clinically indicated. Blood 10/15/2023 7:56 AM BUILDING ADMIN 10/15/2023 7:56 AM BUILDING ADMIN Frank Cody MD LAB POCT ORDERABLES - DEVICE Fin al Result Performing Organization Address [facility] Co de Phone Number [facility] [address] [place] [address] * (ABNORMAL) POCT glucose (10/15/2023 5:34 AM BUILDING ADMIN) [facility] Signature Glucose, POC 338(H) 70 - 140 mg/dL [facility] Comment: For Glucose values <35 mg/dl when Hematocrit is >60 mg/dl,the test may not accurately detect significant hypoglycemia,and testing in the Laboratory should be considered if clinically indicated. Glucose comment 1 RN/MD Notified [facility] Blood 10/15/2023 5:34 AM BUILDING ADMIN 10/15/2023 5:34 AM BUILDING ADMIN Result [facility] Frank Cody MD LAB POCT ORDERABLES - DEVICE Fin al Result Performing Organization Address [facility] Co de Phone Number [facility] [address] [place] [address] * (ABNORMAL) POCT glucose (10/15/2023 4:35 AM BUILDING ADMIN) Glucose, POC 344(H) 70 - 140 mg/dL [facility] Comment: For Glucose values <35 mg/dl when Hematocrit is >60 mg/dl,the test may not accurately detect significant hypoglycemia,and testing in the Laboratory should be considered if clinically indicated. Glucose comment 1 RN/MD Notified [facility] Blood 10/15/2023 4:35 AM BUILDING ADMIN 10/15/2023 4:35 AM BUILDING ADMIN Frank Cody MD LAB POCT ORDERABLES - DEVICE Fin al Result Performing Organization Address [facility]/ZIP Co de Phone Number [facility] [address] [place] [address] * (ABNORMAL) aPTT (10/15/2023 4:27 AM BUILDING ADMIN) aPTT 75(H) 28 - 38 sec [facility] Comment: Interpretive Data Heparin therapeutic range: 66.0 - 100.0 seconds. Range based on correlation with therapeutic heparin activity range of 0.3 - 0.7 Units/mL. Current interpretive data was last revised on 2023. Blood 10/15/2023 4:27 AM BUILDING ADMIN 10/15/2023 4:38 AM BUILDING ADMIN Narrative [facility] - 10/15/2023 4:55 AM BUILDING ADMIN Draw STAT PTT 6 hrs after initiation of heparin infusion, draw STAT PTT 6 hours after each dose change, and every 6 hours until 2 consecutive PTTs are within therapeutic range. Once two consecutive PTT's are therapeutic (66-100 seconds), then draw PTT every AM until heparin is discontinued. Vinay Pratt DO LAB BLOOD ORDERABLES F inal Result Performing Organization Address [facility]/ZIP Co de Phone Number [facility] [address] [place] [address] * (ABNORMAL) POCT glucose (10/15/2023 1:30 AM BUILDING ADMIN) Glucose, POC 334(H) 70 - 140 mg/dL [facility] Comment: For Glucose values <35 mg/dl when Hematocrit is >60 mg/dl,the test may not accurately detect significant hypoglycemia,and testing in the Laboratory should be considered if clinically indicated. Blood 10/15/2023 1:30 AM BUILDING ADMIN 10/15/2023 1:30 AM BUILDING ADMIN us Frank Cody MD LAB POCT ORDERABLES - DEVICE Fin al Result [facility] [address] [place] [address] * (ABNORMAL) Renal function panel (10/15/2023 1:06 AM BUILDING ADMIN) Sodium 130(L) 135 - 145 mmol/L [facility] Potassium, pl 4.3 3.3 - 4.9 mmol/L [facility] Chloride 89(L) 97 - 110 mmol/L [facility] CO2 22 22 - 32 mmol/L [facility] Anion gap 19(H) 2 - 15 mmol/L [facility] BUN 78(H) 6 - 25 mg/dL [facility] Creatinine 10.57(H) 0.80 - 1.30 mg/dL [facility] Glucose 308(H) 70 - 199 mg/dL [facility] Comment: Interpretive Data Fasting glucose [...] interpretive data was last revised 2022. Calcium 8.2(L) 8.5 - 10.3 mg/dL [facility] Phosphorus, pl 5.7(H) 2.3 - 4.5 mg/dL [facility] Albumin 3.3(L) 3.5 - 5.0 g/dL [facility] Blood 10/15/2023 1:06 AM BUILDING ADMIN 10/15/2023 1:20 AM BUILDING ADMIN Frank Cody MD LAB BLOOD ORDERABLES Final Resul t Performing Organization Address [facility] Co de Phone Number [facility] [address] [place] [address] * eGFR (10/15/2023 1:06 AM BUILDING ADMIN) eGFR 5 mL/min/1. 73 m2 [facility] Comment: Interpretive Data Reference Interval Normal ?>/= [...] interpretive data was last reviewed 2021. Blood 10/15/2023 1:06 AM BUILDING ADMIN 10/15/2023 1:20 AM BUILDING ADMIN Frank Cody MD LAB BLOOD ORDERABLES Final Resul t Performing Organization Address [facility]/ZIP Co de Phone Number [facility] [address] [place], [place] [phone] * (ABNORMAL) aPTT (10/15/2023 1:06 AM BUILDING ADMIN) Pathologist [facility] aPTT 69(H) 28 - 38 sec [facility] Comment: Interpretive Data Heparin therapeutic range: 66.0 - 100.0 seconds. Range based on correlation with therapeutic heparin activity range of 0.3 - 0.7 Units/mL. Current interpretive data was last revised on 2023. Blood 10/15/2023 1:06 AM BUILDING ADMIN 10/15/2023 1:20 AM BUILDING ADMIN us Frank Cody MD LAB BLOOD ORDERABLES Final Resul t [facility] [address] [place] [address] * (ABNORMAL) Differential, auto (10/15/2023 1:06 AM BUILDING ADMIN) Pathologist [facility] Neutrophil abs 4.3 1.5 - 6.5 K/cumm [facility] Imm gran abs 0.1 0.0 - 0.1 K/cumm [facility] Lymphocyte abs 2.2 0.8 - 3.3 K/cumm [facility] Monocyte abs 0.9(H) 0.2 - 0.8 K/cumm [facility] Eosinophil abs 0.1 0.0 - 0.5 K/cumm [facility] Basophil abs 0.0 0.0 - 0.1 K/cumm [facility] Neutrophil pct 56.6 % [facility] Comment: Interpretive Data Percent cell count reference ranges are not reported, since discordance with absolute values may lead to misinterpretation of CBC data. Current Interpretive Data was last revised on 2017. Imm gran pct 1.2 % [facility] Comment: Interpretive Data Percent cell count reference ranges are not reported, since discordance with absolute values may lead to misinterpretation of CBC data. Current Interpretive Data was last revised on 2017. Lymphocyte pct 28.4 % [facility] Comment: Interpretive Data Percent cell count reference ranges are not reported, since discordance with absolute values may lead to misinterpretation of CBC data. Current Interpretive Data was last revised on 2017. Monocyte pct 12.0 % [facility] Comment: Interpretive Data Percent cell count reference ranges are not reported, since discordance with absolute values may lead to misinterpretation of CBC data. Current Interpretive Data was last revised on 2017. Eosinophil pct 1.5 % [facility] Comment: Interpretive Data Percent cell count reference ranges are not reported, since discordance with absolute values may lead to misinterpretation of CBC data. Current Interpretive Data was last revised on 2017. Basophil pct 0.3 % [facility] Comment: Interpretive Data Percent cell count reference ranges are not reported, since discordance with absolute values may lead to misinterpretation of CBC data. Current Interpretive Data was last revised on 2017. Blood 10/15/2023 1:06 AM BUILDING ADMIN 10/15/2023 1:20 AM BUILDING ADMIN us Vinay Pratt DO LAB BLOOD ORDERABLES F inal Result Performing Organization Address [facility]/ZIP Co de Phone Number [facility] [address] [place] [address] * (ABNORMAL) Iron profile w/ IBC (10/15/2023 1:06 AM BUILDING ADMIN) Iron 72 50 - 150 mcg/dL [facility] TIBC 205(L) 250 - 400 mcg/dL [facility] Transferrin saturation 35 20 - 50 % [facility] Blood 10/15/2023 1:06 AM BUILDING ADMIN 10/15/2023 1:20 AM BUILDING ADMIN us Fernandez Carranza MD LAB BLOOD ORDERABLES Final Resu lt [facility] [address] [place] [address] * (ABNORMAL) Ferritin (10/15/2023 1:06 AM BUILDING ADMIN) Ferritin 1,322(H) 30 - 400 ng/mL [facility] Blood 10/15/2023 1:06 AM BUILDING ADMIN 10/15/2023 1:20 AM BUILDING ADMIN us Fernandez Carranza MD LAB BLOOD ORDERABLES Final Resu lt Performing Organization Address [facility] Co de Phone Number [facility] [address] [place], [place] [id number] * (ABNORMAL) CBC with auto differential (10/15/2023 1:06 AM BUILDING ADMIN) [facility] WBC 7.6 3.8 - 9.9 K/cumm [facility] Hgb 9.4(L) 13.0 - 17.5 g/dL [facility] Hct 29.4(L) 38.9 - 50.3 % [facility] Plt 375 150 - 400 K/cumm [facility] MPV 11.0 9.1 - 12.3 fL [facility] RBC 3.23(L) 4.30 - 5.80 M/cumm [facility] MCV 91.0 81.3 - 96.4 fL [facility] MCH 29.1 27.1 - 33.3 pg [facility] MCHC 32.0(L) 32.3 - 35.7 g/dL [facility] RDW CV 14.0 11.1 - 14.9 % [facility] RDW SD 45.5 35.7 - 48.1 fL [facility] NRBC abs 0.02(H) 0.00 - 0.01 K/cumm [facility] Blood 10/15/2023 1:06 AM BUILDING ADMIN 10/15/2023 1:20 AM BUILDING ADMIN us Vinay Pratt DO LAB BLOOD ORDERABLES F inal Result Performing Organization Address [facility]/ZIP Co de Phone Number [facility] [address] Department [place], [place] [phone] * (ABNORMAL) aPTT (10/14/2023 8:41 PM BUILDING ADMIN) aPTT 75(H) 28 - 38 sec [facility] Comment: Interpretive Data Heparin therapeutic range: 66.0 - 100.0 seconds. Range based on correlation with therapeutic heparin activity range of 0.3 - 0.7 Units/mL. Current interpretive data was last revised on 2023. Blood 10/14/2023 8:41 PM BUILDING ADMIN 10/14/2023 8:52 PM BUILDING ADMIN us Frank Cody MD LAB BLOOD ORDERABLES Final Resul t Performing Organization Address [facility] de Phone Number [facility] [address] [facility] [place] [address] * (ABNORMAL) POCT glucose (10/14/2023 8:24 PM BUILDING ADMIN) Glucose, POC 232(H) 70 - 140 mg/dL [facility] Comment: For Glucose values <35 mg/dl when Hematocrit is >60 mg/dl,the test may not accurately detect significant hypoglycemia,and testing in the Laboratory should be considered if clinically indicated. Blood 10/14/2023 8:24 PM BUILDING ADMIN 10/14/2023 8:24 PM BUILDING ADMIN Result Todd Cody MD LAB POCT ORDERABLES - DEVICE Fin al Result Performing Organization Address [facility] de Phone Number [facility] [address] [facility] [place] [address] * (ABNORMAL) POCT glucose (10/14/2023 5:28 PM BUILDING ADMIN) Glucose, POC 217(H) 70 - 140 mg/dL [facility] Comment: For Glucose values <35 mg/dl when Hematocrit is >60 mg/dl,the test may not accurately detect significant hypoglycemia,and testing in the Laboratory should be considered if clinically indicated. Blood 10/14/2023 5:28 PM BUILDING ADMIN 10/14/2023 5:28 PM BUILDING ADMIN us Frank Cody MD LAB POCT ORDERABLES - DEVICE Fin al Result Performing Organization Address [facility] Co de Phone Number [facility] [address] [facility] [place], [place] [phone] * (ABNORMAL) aPTT (10/14/2023 2:39 PM BUILDING ADMIN) aPTT 43(H) 28 - 38 sec [facility] Comment: Interpretive Data Heparin therapeutic range: 66.0 - 100.0 seconds. Range based on correlation with therapeutic heparin activity range of 0.3 - 0.7 Units/mL. Current interpretive data was last revised on 2023. Blood 10/14/2023 2:39 PM BUILDING ADMIN 10/14/2023 2:39 PM BUILDING ADMIN us Abelardo Randle MD LAB BLOOD ORDERABLES Final Result Performing Organization Address [facility] Co de Phone Number [facility] [address] [facility] [place] [address] * POCT glucose (10/14/2023 12:15 PM BUILDING ADMIN) Glucose, POC 140 70 - 140 mg/dL [facility] Comment: For Glucose values <35 mg/dl when Hematocrit is >60 mg/dl,the test may not accurately detect significant hypoglycemia,and testing in the Laboratory should be considered if clinically indicated. Blood 10/14/2023 12:1 5 PM BUILDING ADMIN 10/14/2023 12:15 PM BUILDING ADMIN Frank Cody MD LAB POCT ORDERABLES - DEVICE Fin al Result Performing Organization Address [facility] Co de Phone Number [facility] [address] [facility] [place], [place] [phone] * POCT glucose (10/14/2023 11:06 AM BUILDING ADMIN) Glucose, POC 138 70 - 140 mg/dL [facility] Comment: For Glucose values <35 mg/dl when Hematocrit is >60 mg/dl,the test may not accurately detect significant hypoglycemia,and testing in the Laboratory should be considered if clinically indicated. Blood 10/14/2023 11:0 6 AM BUILDING ADMIN 10/14/2023 11:06 AM BUILDING ADMIN us Frank Cody MD LAB POCT ORDERABLES - DEVICE Fin al Result Performing Organization Address [facility] de Phone Number [facility] [address] [facility] [place] [address] * POCT glucose (10/14/2023 8:34 AM BUILDING ADMIN) Glucose, POC 134 70 - 140 mg/dL [facility] Comment: For Glucose values <35 mg/dl when Hematocrit is >60 mg/dl,the test may not accurately detect significant hypoglycemia,and testing in the Laboratory should be considered if clinically indicated. Blood 10/14/2023 8:34 AM BUILDING ADMIN 10/14/2023 8:34 AM BUILDING ADMIN us Frank Cody MD LAB POCT ORDERABLES - DEVICE Fin al Result Performing Organization Address [facility] de Phone Number [facility] [address] [place] [address] * (ABNORMAL) POCT glucose (10/14/2023 5:56 AM BUILDING ADMIN) Glucose, POC 259(H) 70 - 140 mg/dL [facility] Comment: For Glucose values <35 mg/dl when Hematocrit is >60 mg/dl,the test may not accurately detect significant hypoglycemia,and testing in the Laboratory should be considered if clinically indicated. Blood 10/14/2023 5:56 AM BUILDING ADMIN 10/14/2023 5:56 AM BUILDING ADMIN us Frank Cody MD LAB POCT ORDERABLES - DEVICE Fin al Result Performing Organization Address [facility] Co de Phone Number [facility] [address] [place] [address] * eGFR (10/14/2023 5:53 AM BUILDING ADMIN) eGFR 5 mL/min/1. 73 m2 [facility] Comment: Interpretive Data Reference Interval Normal ?>/= [...] interpretive data was last reviewed 2021. Blood 10/14/2023 5:53 AM BUILDING ADMIN 10/14/2023 6:04 AM BUILDING ADMIN us Vinay Pratt DO LAB BLOOD ORDERABLES F inal Result [facility] [address] [place] [address] * (ABNORMAL) aPTT (10/14/2023 5:53 AM BUILDING ADMIN) aPTT 56(H) 28 - 38 sec [facility] Comment: Interpretive Data Heparin therapeutic range: 66.0 - 100.0 seconds. Range based on correlation with therapeutic heparin activity range of 0.3 - 0.7 Units/mL. Current interpretive data was last revised on 2023. Blood 10/14/2023 5:53 AM BUILDING ADMIN 10/14/2023 6:04 AM BUILDING ADMIN Vinay Pratt DO LAB BLOOD ORDERABLES F inal Result Performing Organization Address [facility]/ZIP Co de Phone Number [facility] [address] [place] [address] * (ABNORMAL) Basic metabolic panel (10/14/2023 5:53 AM BUILDING ADMIN) [facility] Sodium 131(L) 135 - 145 mmol/L [facility] Potassium, pl 4.3 3.3 - 4.9 mmol/L [facility] Chloride 92(L) 97 - 110 mmol/L [facility] CO2 23 22 - 32 mmol/L [facility] Anion gap 16(H) 2 - 15 mmol/L [facility] BUN 75(H) 6 - 25 mg/dL [facility] Creatinine 10.22(H) 0.80 - 1.30 mg/dL [facility] Glucose 287(H) 70 - 199 mg/dL [facility] Comment: Interpretive Data Fasting glucose [...] interpretive data was last revised 2022. Calcium 9.0 8.5 - 10.3 mg/dL [facility] Blood 10/14/2023 5:53 AM BUILDING ADMIN 10/14/2023 6:04 AM BUILDING ADMIN Vinay Pratt DO LAB BLOOD ORDERABLES F inal Result Performing Organization Address [facility]/ZIP Co de Phone Number [facility] [address] [facility] [place] [address] * (ABNORMAL) POCT glucose (10/14/2023 3:58 AM BUILDING ADMIN) Glucose, POC 382(H) 70 - 140 mg/dL [facility] Comment: For Glucose values <35 mg/dl when Hematocrit is >60 mg/dl,the test may not accurately detect significant hypoglycemia,and testing in the Laboratory should be considered if clinically indicated. Blood 10/14/2023 3:58 AM BUILDING ADMIN 10/14/2023 3:58 AM BUILDING ADMIN us Frank Cody MD LAB POCT ORDERABLES - DEVICE Fin al Result Performing Organization Address [facility] Co de Phone Number [facility] [address] [facility] [place] [address] * (ABNORMAL) POCT glucose (10/14/2023 3:04 AM BUILDING ADMIN) Glucose, POC 378(H) 70 - 140 mg/dL [facility] Comment: For Glucose values <35 mg/dl when Hematocrit is >60 mg/dl,the test may not accurately detect significant hypoglycemia,and testing in the Laboratory should be considered if clinically indicated. Blood 10/14/2023 3:04 AM BUILDING ADMIN 10/14/2023 3:04 AM BUILDING ADMIN us Frank Cody MD LAB POCT ORDERABLES - DEVICE Fin al Result Performing Organization Address [facility] Co de Phone Number [facility] [address] [facility] [place] [address] * (ABNORMAL) POCT glucose (10/14/2023 2:05 AM BUILDING ADMIN) Glucose, POC 425(H) 70 - 140 mg/dL [facility] Comment: For Glucose values <35 mg/dl when Hematocrit is >60 mg/dl,the test may not accurately detect significant hypoglycemia,and testing in the Laboratory should be considered if clinically indicated. Blood 10/14/2023 2:05 AM BUILDING ADMIN 10/14/2023 2:05 AM BUILDING ADMIN Frank Cody MD LAB POCT ORDERABLES - DEVICE Fin al Result Performing Organization Address [facility] Co de Phone Number [facility] [address] [place] [address] * eGFR (10/14/2023 1:04 AM BUILDING ADMIN) Pathologist [facility] eGFR 5 mL/min/1. 73 m2 [facility] Comment: Interpretive Data Reference Interval Normal ?>/= [...] interpretive data was last reviewed 2021. Blood 10/14/2023 1:04 AM BUILDING ADMIN 10/14/2023 1:36 AM BUILDING ADMIN Vinay Pratt DO LAB BLOOD ORDERABLES F inal Result Performing Organization Address [facility]/State/ZIP Co de Phone Number [facility] [address] Department [place] [address] * (ABNORMAL) Differential, auto (10/14/2023 1:04 AM BUILDING ADMIN) Neutrophil abs 4.8 1.5 - 6.5 K/cumm [facility] Imm gran abs 0.1 0.0 - 0.1 K/cumm [facility] Lymphocyte abs 0.7(L) 0.8 - 3.3 K/cumm [facility] Monocyte abs 0.7 0.2 - 0.8 K/cumm [facility] Eosinophil abs 0.0 0.0 - 0.5 K/cumm [facility] Basophil abs 0.0 0.0 - 0.1 K/cumm [facility] Neutrophil pct 77.4 % [facility] Comment: Interpretive Data Percent cell count reference ranges are not reported, since discordance with absolute values may lead to misinterpretation of CBC data. Current Interpretive Data was last revised on 2017. Imm gran pct 1.0 % [facility] Comment: Interpretive Data Percent cell count reference ranges are not reported, since discordance with absolute values may lead to misinterpretation of CBC data. Current Interpretive Data was last revised on 2017. Lymphocyte pct 10.4 % [facility] Comment: Interpretive Data Percent cell count reference ranges are not reported, since discordance with absolute values may lead to misinterpretation of CBC data. Current Interpretive Data was last revised on 2017. Monocyte pct 11.2 % [facility] Comment: Interpretive Data Percent cell count reference ranges are not reported, since discordance with absolute values may lead to misinterpretation of CBC data. Current Interpretive Data was last revised on 2017. Eosinophil pct 0.0 % [facility] Comment: Interpretive Data Percent cell count reference ranges are not reported, since discordance with absolute values may lead to misinterpretation of CBC data. Current Interpretive Data was last revised on 2017. Basophil pct 0.0 % [facility] Comment: Interpretive Data Percent cell count reference ranges are not reported, since discordance with absolute values may lead to misinterpretation of CBC data. Current Interpretive Data was last revised on 2017. Blood 10/14/2023 1:04 AM BUILDING ADMIN 10/14/2023 1:36 AM BUILDING ADMIN Vinay Pratt [facility] BLOOD ORDERABLES F inal Result Performing Organization Address [facility] de Phone Number [facility] [address] [facility] [place] [address] * (ABNORMAL) aPTT (10/14/2023 1:04 AM BUILDING ADMIN) aPTT 68(H) 28 - 38 sec [facility] Comment: Interpretive Data Heparin therapeutic range: 66.0 - 100.0 seconds. Range based on correlation with therapeutic heparin activity range of 0.3 - 0.7 Units/mL. Current interpretive data was last revised on 2023. Blood 10/14/2023 1:04 AM BUILDING ADMIN 10/14/2023 1:36 AM BUILDING ADMIN Narrative [facility] - 10/14/2023 1:49 AM BUILDING ADMIN Baseline prior to heparin initiation Vinay Pratt [facility] BLOOD ORDERABLES F inal Result Performing Organization Address [facility] de Phone Number [facility] [address] [place] [address] * Protime-INR (10/14/2023 1:04 AM BUILDING ADMIN) PT 13.5 10.3 - 13.7 sec [facility] INR 1.18 0.90 - 1.20 [facility] Comment: Interpretive data Oral anticoagulant therapeutic ranges: Venous thromboembolism prophylaxis or treatment: 2.0-3.0 CARDIOLOGY Standard range: 2.0-3.0 High-intensity range: 2.5-3.5 Refer to indication-specific guidelines for appropriate target ranges for prosthetic heart valve replacement. Current interpretive data was last revised on 2019. Blood 10/14/2023 1:04 AM BUILDING ADMIN 10/14/2023 1:36 AM BUILDING ADMIN Narrative [facility] - 10/14/2023 1:49 AM BUILDING ADMIN Baseline prior to heparin initiation Vinay Pratt DO LAB BLOOD ORDERABLES F inal Result Performing Organization Address [facility]/ZIP Co de Phone Number [facility] [address] [place] [address] * (ABNORMAL) CBC with auto differential (10/14/2023 1:04 AM BUILDING ADMIN) Pathologist [facility] WBC 6.2 3.8 - 9.9 K/cumm [facility] Hgb 9.4(L) 13.0 - 17.5 g/dL [facility] Hct 29.0(L) 38.9 - 50.3 % [facility] Plt 357 150 - 400 K/cumm [facility] MPV 11.0 9.1 - 12.3 fL [facility] RBC 3.21(L) 4.30 - 5.80 M/cumm [facility] MCV 90.3 81.3 - 96.4 fL [facility] MCH 29.3 27.1 - 33.3 pg [facility] MCHC 32.4 32.3 - 35.7 g/dL [facility] RDW CV 13.6 11.1 - 14.9 % [facility] RDW SD 44.1 35.7 - 48.1 fL [facility] NRBC abs 0.00 0.00 - 0.01 K/cumm [facility] Blood 10/14/2023 1:04 AM BUILDING ADMIN 10/14/2023 1:36 AM BUILDING ADMIN Vinay Pratt DO LAB BLOOD ORDERABLES F inal Result [facility] [address] [place] [address] * (ABNORMAL) Comprehensive metabolic panel (10/14/2023 1:04 AM BUILDING ADMIN) Pathologist [facility] Sodium 130(L) 135 - 145 mmol/L [facility] Potassium, pl 4.3 3.3 - 4.9 mmol/L [facility] Chloride 90(L) 97 - 110 mmol/L [facility] CO2 21(L) 22 - 32 mmol/L [facility] Anion gap 19(H) 2 - 15 mmol/L [facility] BUN 66(H) 6 - 25 mg/dL [facility] Creatinine 10.57(H) 0.80 - 1.30 mg/dL [facility] Glucose 453(C) 70 - 199 mg/dL [facility] Comment: Critical result called to and read back by Brit Zeng RN on 10/14/2023 0211 to [id number] Interpretive Data Fasting glucose >/= 126 mg/dl [...] interpretive data was last revised 2022. Calcium 9.2 8.5 - 10.3 mg/dL [facility] Bilirubin, total 0.3 0.1 - 1.2 mg/dL [facility] Protein, pl 6.4(L) 6.5 - 8.5 g/dL [facility] Albumin 3.4(L) 3.5 - 5.0 g/dL [facility] Alk phos 98 40 - 130 Units/L [facility] ALT 21 7 - 55 Units/L [facility] AST 28 10 - 50 Units/L [facility] Blood 10/14/2023 1:04 AM BUILDING ADMIN 10/14/2023 1:36 AM BUILDING ADMIN us Vinay Pratt DO LAB BLOOD ORDERABLES F inal Result [facility] [address] [place] [address] * (ABNORMAL) POCT glucose (10/13/2023 11:25 PM BUILDING ADMIN) Glucose, POC 534(C) 70 - 140 mg/dL [facility] Comment: For Glucose values <35 mg/dl when Hematocrit is >60 mg/dl,the test may not accurately detect significant hypoglycemia,and testing in the Laboratory should be considered if clinically indicated. Glucose comment 1 Glu2: [facility] Blood 10/13/2023 11:2 5 PM BUILDING ADMIN 10/13/2023 11:25 PM BUILDING ADMIN us Frank Cody MD LAB POCT ORDERABLES - DEVICE Fin al Result [facility] [address] [place] [address] documented in this encounter Visit Diagnoses Diagnosis CAD in [place] artery- Primary CAD in [place] artery 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[place] artery of [place] heart with stable angina pectoris ([facility]) ([facility]) Aortic stenosis, severe S/P CABG x 3 Postsurgical aortocoronary bypass status NSTEMI (non-ST elevated myocardial infarction) ([facility]) ([facility]) Acute myocardial infarction, subendocardial infarction, episode of care unspecified S/P AVR documented in this encounter Admitting Diagnoses Diagnosis CAD in [place] artery documented in this encounter Administered Medications Inactive Administered Medications - up to 3 most recent administrations Medication Order MAR Action Action Date Dose Rate Site acetaminophen (TYLENOL) 32 mg/mL oral liquid 1,000 mg 1,000 mg, feeding tube, Every 6 hours scheduled, First dose on Mon10/17/23 at 1400, If taking meds per tube., Indications: PainIndications:Pain Given 10/17/2023 11:12 PM BUILDING ADMIN 1,000 mg Given 10/17/2023 5:00 PM BUILDING ADMIN 1,000 mg acetaminophen (TYLENOL) tablet 1,000 mg 1,000 mg, oral, Every 6 hours scheduled, First dose on Mon10/17/23 at 1400, If able to swallow medications., Indications: PainIndications:Pain Given 10/20/2023 6:32 AM BUILDING ADMIN 1,000 mg Given 10/19/2023 11:00 PM BUILDING ADMIN 1,000 mg Given 10/19/2023 5:21 PM BUILDING ADMIN 1,000 mg acetaminophen (TYLENOL) tablet 1,000 mg 1,000 mg, oral, Every 6 hours scheduled, First dose (after last modification) on Mon10/20/23 at 1815, If able to swallow medications., Indications: PainIndications:Pain Given 10/27/2023 10:58 AM BUILDING ADMIN 1,000 mg Given 10/27/2023 6:04 AM BUILDING ADMIN 1,000 mg Given 10/26/2023 10:57 PM BUILDING ADMIN 1,000 mg acetaminophen (TYLENOL) tablet 500 mg 500 mg, oral, Every 6 hours PRN, 1st line for pain, Starting on Mon10/27/23 at 1200, If able to swallow medications., Indications: PainIndications:Pain Given 10/31/2023 5:43 AM CDT 500 mg Given 10/30/2023 9:36 PM CDT 500 mg al & mag hydroxide apgupljddyd-ednfisapckdyxvb-mlbaiyvfa-nystatin (MAGIC MOUTHWASH) oral suspension 1-1-1-1 20 mL 20 mL, swish & swallow, Every 6 hours, First dose on Mon10/26/23 at 1400 Given 11/03/2023 1:00 PM CDT 20 mL Given 11/03/2023 8:38 AM CDT 20 mL Given 11/02/2023 8:23 PM CDT 20 mL ALPRAZolam (XANAX) tablet 1 mg 1 mg, oral, 3 times daily PRN, anxiety, Starting on Mon10/14/23 at 1254 Given 10/16/2023 9:42 PM BUILDING ADMIN 1 mg Given 10/15/2023 6:18 PM BUILDING ADMIN 1 mg Given 10/14/2023 8:25 PM BUILDING ADMIN 1 mg aminocaproic acid (AMICAR) 9,500 mg in sodium chloride 0.9% 100 mL IVPB 9,500 mg (rounded from 9,465 mg = 75 mg/kg ? 126.2 kg), intravenous, at 138 mL/hr, Administer over 60 Minutes, Once, On Mon10/17/23 at 1900, For 1 dose, Indications: Postsurgical HemorrhageIndications:Postsurgica l Hemorrhage New Bag 10/17/2023 6:38 PM BUILDING ADMIN 9,500 mg 138 mL/hr amiodarone (NEXTERONE) 150 mg/100 mL (1.5 mg/mL) in dextrose (premix) 150 mg 150 mg, intravenous, at 600 mL/hr, Administer over 10 Minutes, Once, On Mon10/23/23 at 0845, For 1 dose, Use filter 0.22 micron or less New Bag 10/23/2023 9:50 AM BUILDING ADMIN 150 mg 600 mL/hr amiodarone (PACERONE) tablet 200 mg 200 mg, oral, 2 times daily, First dose on Mon10/24/23 at 0900 Given 10/27/2023 8:28 AM BUILDING ADMIN 200 mg Given 10/26/2023 10:57 PM BUILDING ADMIN 200 mg Given 10/26/2023 8:37 AM BUILDING ADMIN 200 mg amiodarone (PACERONE) tablet 200 mg 200 mg, oral, Daily, First dose (after last modification) on Mon10/28/23 at 0900 Given 11/03/2023 8:38 AM CDT 200 mg Given 11/02/2023 9:22 AM CDT 200 mg Given 11/01/2023 8:22 AM CDT 200 mg amiodarone in dextrose (NEXTERONE) 360 mg/200 mL (1.8 mg/mL) infusion (premix) 1 mg/min (33.3333 mL/hr, rounded to 33.3 mL/hr), 1.8 mg/mL, intravenous, Continuous, Starting on Mon10/23/23 at 0845, Until Mon10/23/23 at 1554, Use filter 0.22 micron or less, Routine New Bag 10/23/2023 2:08 PM BUILDING ADMIN 1 mg/min 33.3 mL/hr New Bag 10/23/2023 9:55 AM BUILDING ADMIN 1 mg/min 33.3 mL/hr amiodarone in dextrose (NEXTERONE) 360 mg/200 mL (1.8 mg/mL) infusion (premix) 0.5 mg/min (16.6667 mL/hr, rounded to 16.67 mL/hr), 1.8 mg/mL, intravenous, Continuous, Starting on Mon10/23/23 at 1555, Until Mon10/24/23 at 0726, Use filter 0.22 micron or less, Routine New Bag 10/23/2023 11:47 PM BUILDING ADMIN 0.5 mg/min 16.67 mL/hr Rate/Dose Change 10/23/2023 4:15 PM BUILDING ADMIN 0.5 mg/min 16.67 m L/hr aspirin chewable tablet 81 mg 81 mg, oral, Daily, First dose (after last modification) on Mon10/18/23 at 0915, If able to swallow medications. Within 6h of arrival to CVR if chest tube output allows. Given 11/03/2023 8:38 AM CDT 81 mg Given 11/02/2023 9:22 AM CDT 81 mg Given 11/01/2023 8:22 AM CDT 81 mg aspirin enteric coated tablet 81 mg 81 mg, oral, Daily, First dose on 10/14/23 at 0900, Do not crush, chew, cut, dissolve, open or otherwise manipulate tablet/capsule. Given 10/16/2023 8:19 AM BUILDING ADMIN 81 mg Given 10/15/2023 8:41 AM BUILDING ADMIN 81 mg Given 10/14/2023 8:52 AM BUILDING ADMIN 81 mg atorvastatin (LIPITOR) tablet 80 mg 80 mg, oral, Daily, First dose on 10/14/23 at 0900 Given 11/03/2023 8:38 AM CDT 80 mg Given 11/02/2023 9:22 AM CDT 80 mg Given 11/01/2023 8:22 AM CDT 80 mg benzocaine-menthoL (CHLORASEPTIC) lozenge 1 lozenge 1 lozenge, mouth/throat, Every 4 hours PRN, sore throat, Starting on Mon10/22/23 at 0345 Given 11/03/2023 1:00 PM CDT 1 lozenge Given 11/01/2023 3:45 PM CDT 1 lozenge Given 10/30/2023 9:45 PM CDT 1 lozenge bisacodyL (DULCOLAX) suppository 10 mg 10 mg, rectal, Daily PRN, constipation, Starting on Mon10/13/23 at 2332, Indications: constipationIndications:constipation bisacodyL (DULCOLAX) suppository 10 mg 10 mg, rectal, Once, On 10/16/23 at 2000, For 1 dose, Pre-Op/Floor, At 8 PM the evening before surgery. , Indications: Bowel EvacuationIndications:Bowel Evacuation Given 10/16/2023 8:08 PM BUILDING ADMIN 10 mg bisacodyL (DULCOLAX) suppository 10 mg 10 mg, rectal, Once, On Gregoria 10/19/23 at 1545, For 1 dose, Indications: constipationIndications:constipation Given 10/19/2023 5:21 PM BUILDING ADMIN 10 mg calcitRIOL (ROCALTROL) capsule 0.25 mcg 0.25 mcg, oral, Daily, First dose on Mon10/14/23 at 0900 Given 11/03/2023 8:38 AM CDT 0.25 mcg Given 11/02/2023 9:22 AM CDT 0.25 mcg Given 11/01/2023 8:22 AM CDT 0.25 mcg calcium acetate(phosphat bind) (PHOSLO) capsule 1,334 mg 1,334 mg, oral, 3 times daily with meals, First dose (after last modification) on Mon10/20/23 at 0800, Take with food Given 11/03/2023 5:17 PM CDT 1,334 mg Given 11/03/2023 11:38 AM CDT 1,334 mg Given 11/03/2023 8:38 AM CDT 1,334 mg calcium acetate(phosphat bind) (PHOSLO) capsule 667 mg 667 mg, oral, 3 times daily with meals, First dose on Mon10/16/23 at 1800, Take with food Given 10/16/2023 5:[address] 667 mg calcium acetate(phosphat bind) (PHOSLO) capsule 667 mg 667 mg, oral, 3 times daily with meals, First dose on Mon10/18/23 at 0830, Take with food Given 10/19/2023 5:[address] 667 mg Given 10/19/2023 12:07 PM BUILDING ADMIN 667 mg Given 10/19/2023 8:12 AM BUILDING ADMIN 667 mg calcium acetate(phosphat bind) (PHOSLO) capsule 667 mg 667 mg, oral, Nightly, First dose on Mon10/18/23 at 2100, Take with food Given 10/19/2023 9:41 PM BUILDING ADMIN 667 mg Given 10/18/2023 9:47 PM BUILDING ADMIN 667 mg calcium chloride 1 g/110 mL in sodium chloride 0.9% (premix) solution 1 g 1 g, intravenous, Administer over 60 Minutes, Once, On Mon10/17/23 at 1430, For 1 dose, Indications: hypocalcemiaIndications:hypocalce michele New Bag 10/17/2023 2:19 PM BUILDING ADMIN 1 g calcium chloride 1 g/110 mL in sodium chloride 0.9% (premix) solution 1,000 mg 1,000 mg, intravenous, Administer over 60 Minutes, Every 2 hours PRN, ionized calcium 4.5 mg/dL or less, Starting on Mon10/17/23 at 1324, Discuss with provider before administering if creatinine equal to or greater than 1.8 mg/dL, urine output less than 20 ml/hr, patient on renal replacement therapy (CRRT, hemodialysis), and/or patient hypertensive (SBP greater than or equal to 120 mmHg or receiving IV antihypertensives). , Indications: hypocalcemiaIndications:hypocalce michele New Bag 10/18/2023 12:32 AM BUILDING ADMIN 1,000 mg Carrier Fluids for Secondary Infusion - 0.9% Sodium Chloride 30 mL, intravenous, As needed, For priming tubing and/or flushing, Starting on Mon10/17/23 at 1324, 0-250 ml/hr to flush line after IV infusions when no maintenance IV ordered. Infuse 30mL at the same rate as the secondary infusion. Run as primary IV, not intended for KVO. ceFAZolin (ANCEF) 1 gram/10 mL in sterile water (premix) 1,000 mg 1,000 mg, intravenous, at 200 mL/hr, Administer over 3 Minutes, Every 24 hours scheduled, First dose on Mon10/18/23 at 0900, For 2 doses, Start 8 hours after last marie-operative dose., Indications: Prophylaxis, SurgicalIndications:Prophylaxis, Surgical Given 10/19/2023 8:17 AM BUILDING ADMIN 1,000 mg 200 mL/hr Given 10/18/2023 9:07 AM BUILDING ADMIN 1,000 mg 200 mL/hr ceFAZolin (ANCEF) 1 gram/10 mL in sterile water (premix) 1,000 mg 1,000 mg, intravenous, at 200 mL/hr, Administer over 3 Minutes, Every 24 hours scheduled, First dose on Mon10/29/23 at 1030, Indications: Skin/Soft Tissue InfectionIndications:Skin/Soft Tissue Infection Given 11/03/2023 8:46 AM CDT 1,000 mg 200 mL/hr Given 11/02/2023 9:28 AM CDT 1,000 mg 200 mL/hr Given 11/01/2023 9:55 AM CDT 1,000 mg 200 mL/hr colchicine (COLCRYS) tablet 0.6 mg 0.6 mg, oral, 3 times weekly (Once per day on Monday), First dose on Mon10/16/23 at 0900, Stop colchicine if the patient develops nausea, vomiting or diarrhea and notify MD, On hold since Mon10/16/2023 at 1404 until manually unheld Given 10/16/2023 8:20 AM BUILDING ADMIN 0.6 mg desmopressin (DDAVP) 38 mcg in sodium chloride 0.9% 50 mL IVPB 38 mcg (rounded from 37.86 mcg = 0.3 mcg/kg ? 126.2 kg), intravenous, at 119 mL/hr, Administer over 30 Minutes, Once, On Mon10/17/23 at 1515, For 1 dose New Bag 10/17/2023 3:10 PM BUILDING ADMIN 38 mcg 119 mL/hr dextrose (D10W) 10% bolus 125 mL 125 mL, intravenous, at 500 mL/hr, Administer over 15 Minutes, Every 30 min PRN, low blood glucose, Starting on Mon10/17/23 at 1329, BG less than 60 mg/dL OR BG 60-74 mg/dL and previous BG was greater than 90 mg/dL (Glucose is dropping FAST), Indications: hypoglycemic disorderIndications:hypoglyc emic disorder New Bag 10/19/2023 10:58 AM BUILDING ADMIN 1,000 mL 500 mL/hr dextrose (D10W) 10% bolus 250 mL 250 mL, intravenous, at 1,000 mL/hr, Administer over 15 Minutes, Every 15 min PRN, blood glucose less than 70 mg/dL and UNABLE to swallow/take PO glucose/juice., Starting on Mon10/23/23 at 1052, After treatment for hypoglycemia, recheck BG followed by treatment every 15 minutes until the BG is greater than 100 mg/dL. Then check BG 1 hour post treatment. If BG is less than 100 mg/dL, repeat Q15 minute BG checks and treatment. Call MD for each episode of hypoglycemia., Indications: hypoglycemic disorderIndications:hypoglyc emic disorder dextrose (GLUTOSE) 40 % gel 15 g 15 g, oral, Every 15 min PRN, low blood sugar, blood glucose less than 70 mg/dL, Starting on Mon10/23/23 at 1052, If patient is alert and able to eat/drink, give 15 gm glucose or one juice (4 fluid ounces) NOT ORANGE JUICE. After treatment for hypoglycemia, recheck BG followed by treatment every 15 minutes until the BG is greater than 100 mg/dL. Then check BG 1 hour post-treatment. If BG is less than 100 mg/dL, repeat Q15 minute BG checks and treatment. Call MD for each episode of hypoglycemia. DIVISION CHAIR STATES GLUTOSE-15 CONTAINS GLUCOSE 40% W/W (50% W/V), Indications: hypoglycemic disorderIndications:hypoglyc emic disorder dextrose 5% and Lactated Ringer's infusion 10 mL/hr, intravenous, Continuous, Starting on Tu10/17/23 at 1645 Rate/Dose Change 10/17/2023 6:00 PM BUILDING ADMIN 10 mL/hr 10 mL/hr New Bag 10/17/2023 4:03 PM BUILDING ADMIN 20 mL/hr 20 mL/hr dextrose 5% and Lactated Ringer's infusion 10 mL/hr, intravenous, Continuous, Starting on Gregoria 10/19/23 at 1145 Rate/Dose Change 10/19/2023 2:53 PM BUILDING ADMIN 10 mL/hr 10 mL/hr New Bag 10/19/2023 11:17 AM BUILDING ADMIN 20 mL/hr 20 mL/hr Dianeal low calcium-dextrose 2.5 % 6,000 mL dialysis solution intraperitoneal, Continuous, Starting on 10/14/23 at 1615, For 24 hours, CCPD bag number: 1, Indications: Peritoneal DialysisIndications:Peritoneal Dialysis New Bag 10/15/2023 10:58 PM BUILDING ADMIN New Bag 10/14/2023 7:22 PM BUILDING ADMIN Dianeal low calcium-dextrose 2.5 % 6,000 mL dialysis solution intraperitoneal, Continuous, Starting on 10/14/23 at 1615, For 24 hours, CCPD bag number: 2, Indications: Peritoneal DialysisIndications:Peritoneal Dialysis New Bag 10/15/2023 10:58 PM BUILDING ADMIN New Bag 10/14/2023 7:21 PM BUILDING ADMIN Dianeal low calcium-dextrose 2.5 % 6,000 mL dialysis solution intraperitoneal, Continuous, Starting on 10/16/23 at 1615, For 24 hours, CCPD bag number: 1, Indications: Peritoneal DialysisIndications:Peritoneal Dialysis New Bag 10/16/2023 6:53 PM BUILDING ADMIN Dianeal low calcium-dextrose 2.5 % 6,000 mL dialysis solution intraperitoneal, Continuous, Starting on Mon10/16/23 at 1615, For 24 hours, CCPD bag number: 2, Indications: Peritoneal DialysisIndications:Peritoneal Dialysis New Bag 10/16/2023 6:53 PM BUILDING ADMIN Dianeal low calcium-dextrose 2.5 % 6,000 mL dialysis solution intraperitoneal, Continuous, Starting on Mon10/17/23 at 2145, For 24 hours, CCPD bag number: 1, Indications: Peritoneal DialysisIndications:Peritoneal Dialysis New Bag 10/18/2023 10:57 PM BUILDING ADMIN New Bag 10/17/2023 10:32 PM BUILDING ADMIN Dianeal low calcium-dextrose 2.5 % 6,000 mL dialysis solution intraperitoneal, Continuous, Starting on Mon10/17/23 at 2145, For 24 hours, CCPD bag number: 2, Indications: Peritoneal DialysisIndications:Peritoneal Dialysis New Bag 10/20/2023 12:32 AM BUILDING ADMIN New Bag 10/18/2023 10:56 PM BUILDING ADMIN New Bag 10/17/2023 10:32 PM BUILDING ADMIN Dianeal low calcium-dextrose 2.5 % 6,000 mL dialysis solution intraperitoneal, Continuous, Starting on Mon10/18/23 at 2130, For 24 hours, CCPD bag number: 2, Indications: Peritoneal DialysisIndications:Peritoneal Dialysis New Bag 10/20/2023 12:32 AM BUILDING ADMIN Dianeal low calcium-dextrose 2.5 % 6,000 mL dialysis solution intraperitoneal, Continuous, Starting on Mon10/20/23 at 1630, For 24 days, CCPD bag number: 1, Indications: Peritoneal DialysisIndications:Peritoneal Dialysis New Bag 10/20/2023 7:05 PM BUILDING ADMIN Dianeal low calcium-dextrose 2.5 % 6,000 mL dialysis solution intraperitoneal, Continuous, Starting on Mon10/20/23 at 1630, For 24 days, CCPD bag number: 2, Indications: Peritoneal DialysisIndications:Peritoneal Dialysis New Bag 10/20/2023 7:04 PM BUILDING ADMIN Dianeal low calcium-dextrose 2.5 % 6,000 mL with heparin 3,000 Units dialysis solution intraperitoneal, Continuous, Starting on Mon24 at 1800, For 563 hours, CCPD bag number: 1, Indications: Peritoneal DialysisIndications:Peritoneal Dialysis New Bag 10/28/2023 6:17 PM BUILDING ADMIN New Bag 10/27/2023 7:52 PM BUILDING ADMIN New Bag 10/26/2023 8:33 PM BUILDING ADMIN Dianeal low calcium-dextrose 2.5 % 6,000 mL with heparin 3,000 Units dialysis solution intraperitoneal, Continuous, Starting on 10/21/23 at 1800, For 563 hours, CCPD bag number: 2, Indications: Peritoneal DialysisIndications:Peritoneal Dialysis New Bag 11/02/2023 8:01 PM CDT New Bag 11/01/2023 9:25 PM CDT New Bag 10/31/2023 10:03 PM CDT Dianeal low calcium-dextrose 4.25 % 6,000 mL with heparin 3,000 Units dialysis solution intraperitoneal, Continuous, Starting on 10/29/23 at 1800, For 379 hours, CCPD bag number: 1, Indications: Peritoneal DialysisIndications:Peritoneal Dialysis New Bag 11/02/2023 8:01 PM CDT New Bag 11/01/2023 9:25 PM CDT New Bag 10/31/2023 10:13 PM CDT DOBUTamine in dextrose 5% (DOBUTREX) 1,000 mg/250 mL (4,000 mcg/mL) infusion (premix) 2 mcg/kg/min ? 126.2 kg (3.786 mL/hr, rounded to 3.79 mL/hr), 4,000 mcg/mL, intravenous, Titrated, Starting on Mon10/17/23 at 1330, Until Mon10/18/23 at 2256, Initial rate: Do not titrate, Routine Rate/Dose Change 10/18/2023 10:30 PM BUILDING ADMIN 2 mcg/kg/min 3.79 mL/hr Rate/Dose Verify 10/18/2023 10:00 PM BUILDING ADMIN 3 mcg/kg/min 5.68 mL/hr Rate/Dose Verify 10/18/2023 8:00 PM BUILDING ADMIN 3 mcg/kg/min 5.68 mL/hr DOBUTamine in dextrose 5% (DOBUTREX) 1,000 mg/250 mL (4,000 mcg/mL) infusion (premix) 2 mcg/kg/min ? 126.2 kg (3.786 mL/hr, rounded to 3.79 mL/hr), 4,000 mcg/mL, intravenous, Titrated, Starting on Mon10/18/23 at 2330, Until Mon10/19/23 at 0540, Initial rate: Other (comment), Titrate: Down, Titrate DOWN by: Other (comment) / 1 mcg, Titrate DOWN every: Other (comment) / 6h, Goal: SCVO2, SCVO2 Goal: Other (comment) / 65, Routine Rate/Dose Verify 10/19/2023 4:00 AM BUILDING ADMIN 1 mcg/kg/min 1.89 mL/hr Rate/Dose Change 10/19/2023 3:00 AM BUILDING ADMIN 1 mcg/kg/min 1.89 mL/hr Rate/Dose Verify 10/19/2023 2:00 AM BUILDING ADMIN 2 mcg/kg/min 3.79 mL/hr docusate (COLACE) 10 mg/mL oral liquid 100 mg 100 mg, feeding tube, 2 times daily, First dose on Mon10/17/23 at 1400, If taking meds per tube. Hold for diarrhea., Indications: constipationIndications:constipation Given 10/17/2023 8:14 PM BUILDING ADMIN 100 mg docusate sodium (COLACE) capsule 100 mg 100 mg, oral, 2 times daily, First dose on Mon10/17/23 at 1400, If able to swallow medications. Hold for diarrhea. , Indications: constipationIndications:constipation Given 11/03/2023 8:39 AM CDT 100 mg Given 11/02/2023 8:24 PM CDT 100 mg Given 11/02/2023 9:22 AM CDT 100 mg epoetin genia-epbx (RETACRIT) (10,000 unit/mL) injection 10,000 Units 10,000 Units, subcutaneous, Weekly (for epoetins), First dose on Mon10/20/23 at 2100, Refrigerate, Indications: ESRD on DialysisIndications:ESRD on Dialysis Given 10/27/2023 10:12 PM BUILDING ADMIN 10,000 Units Left Upper Arm ergocalciferol (VITAMIN D) capsule 50,000 Units 50,000 Units, oral, Weekly, First dose on Mon10/14/23 at 1045, Do not crush, break, or open. Therapeutic Interchange for Vitamin D3 50,000 units weekly as approved by [facility] P[facility]T Committee. Given 10/14/2023 12:28 PM BUILDING ADMIN 50,000 Units Extraneal 7.5% AMBU-FLEX 2,500 mL dialysis solution intraperitoneal, Continuous, Starting on 10/14/23 at 1615, For 24 hours, This is to be used as the last fill, CCPD bag number: 3, Indications: Peritoneal DialysisIndications:Peritone al Dialysis New Bag 10/15/2023 10:59 PM BUILDING ADMIN New Bag 10/14/2023 7:32 PM BUILDING ADMIN Extraneal 7.5% AMBU-FLEX 2,500 mL dialysis solution intraperitoneal, Continuous, Starting on Mon10/20/23 at 1630, For 24 days, CCPD bag number: 3, Indications: Peritoneal DialysisIndications:Peritoneal Dialysis New Bag 10/20/2023 7:05 PM BUILDING ADMIN Extraneal 7.5% AMBU-FLEX 2,500 mL with heparin 1,250 Units dialysis solution intraperitoneal, Continuous, Starting on 10/21/23 at 1800, For 563 hours, CCPD bag number: 3, Indications: Peritoneal DialysisIndications:Peritoneal Dialysis New Bag 11/02/2023 8:01 PM CDT New Bag 11/01/2023 9:25 PM CDT New Bag 10/31/2023 10:02 PM CDT ezetimibe (ZETIA) tablet 10 mg 10 mg, oral, Daily, First dose on 10/14/23 at 0900 Given 11/03/2023 8:38 AM CDT 10 mg Given 11/02/2023 9:22 AM CDT 10 mg Given 11/01/2023 8:22 AM CDT 10 mg famotidine (PEPCID) injection 20 mg 20 mg, intravenous, Administer over 2 Minutes, Every 24 hours, First dose on Mon10/17/23 at 1400 Given 10/17/2023 4:59 PM BUILDING ADMIN 20 mg famotidine (PEPCID) tablet 20 mg 20 mg, oral, Nightly, First dose on 10/14/23 at 2100 Given 10/16/2023 9:42 PM BUILDING ADMIN 20 mg Given 10/15/2023 8:16 PM BUILDING ADMIN 20 mg Given 10/14/2023 9:26 PM BUILDING ADMIN 20 mg gemfibroziL (LOPID) tablet 600 mg 600 mg, oral, 2 times daily before meals (bkfst, lunch), First dose on 10/14/23 at 0730 Given 10/16/2023 12:24 PM BUILDING ADMIN 600 mg Given 10/16/2023 8:19 AM BUILDING ADMIN 600 mg Given 10/15/2023 12:22 PM BUILDING ADMIN 600 mg gentamicin (GARAMYCIN) 0.1 % cream topical, Daily, First dose on 10/14/23 at 1615, Apply to peritoneal dialysis catheter exit site daily during dressing change. DO NOT SUBSTITUTE WITH OINTMENT., Apply to affected area: dialysis access site, Indications: Infection ProphylaxisIndications:Infection Prophylaxis Given 10/16/2023 8:20 AM BUILDING ADMIN Given 10/14/2023 7:22 PM BUILDING ADMIN gentamicin (GARAMYCIN) 0.1 % cream topical, Daily, First dose on 10/16/23 at 1615, Apply to peritoneal dialysis catheter exit site daily during dressing change. DO NOT SUBSTITUTE WITH OINTMENT., Apply to affected area: dialysis access site, Indications: Infection ProphylaxisIndications:Infection Prophylaxis Given 10/16/2023 6:53 PM BUILDING ADMIN gentamicin (GARAMYCIN) 0.1 % cream topical, Daily, First dose on Gregoria 10/19/23 at 0900, Apply to peritoneal dialysis catheter exit site daily during dressing change. DO NOT SUBSTITUTE WITH OINTMENT., Apply to affected area: dialysis access site, Indications: Infection ProphylaxisIndications:Infection Prophylaxis Given 11/02/2023 8:03 PM CDT Given 11/01/2023 9:26 PM CDT Given 11/01/2023 5:17 PM CDT glucagon injection 1 mg 1 mg, intramuscular, Every 30 min PRN, low blood sugar, blood glucose less than 70 mg/dL AND no IV access AND unable to take PO glucose/juice., Starting on 10/23/23 at 1052, After Glucagon is administered, position patient on side if possible to avoid aspiration. Obtain IV access. Follow glucagon treatment with glucose treatment or IV dextrose. After treatment for hypoglycemia, recheck BG followed by treatment every 15 minutes until the BG is greater than 100 mg/dL. Then check BG 1 hour post treatment. If BG is less than 100 mg/dL, repeat Q15 minute BG checks and treatment. Call MD for each episode of hypoglycemia. Reconstitute 1 mg vial with 1 mL SWFI. Use immediately following reconstitution. guaiFENesin (ROBITUSSIN) 20 mg/mL oral liquid 200 mg 200 mg, oral, Every 4 hours PRN, cough, Starting on Mon10/24/23 at 0739 Given 10/24/2023 7:45 AM BUILDING ADMIN 200 mg haloperidol (HALDOL) injection 1 mg 1 mg, intravenous, Once, On Mon10/18/23 at 1615, For 1 dose, If administered IV push, administer over 5 min for adults Given 10/18/2023 3:48 PM BUILDING ADMIN 1 mg haloperidol (HALDOL) injection 1 mg 1 mg, intravenous, Once, On Gregoria 10/19/23 at 1315, For 1 dose, If administered IV push, administer over 5 min for adults Given 10/19/2023 12:36 PM BUILDING ADMIN 1 mg heparin 5,000 unit/mL injection 2,000 Units 2,000 Units, intravenous, Every 6 hours PRN, PTT 46-55 seconds, Starting on Gregoria 11/02/23 at 1225, Subsequent bolus during heparin infusion., Indications: atrial fibrillationIndications:atri al fibrillation Given 11/03/2023 5:32 AM CDT 2,000 Units heparin 5,000 unit/mL injection 3,000 Units 3,000 Units, intravenous, Every 6 hours PRN, less than 46 seconds, Starting on 10/14/23 at 0056, Subsequent bolus during heparin infusion., Indications: Acute Coronary SyndromeIndications:Acute Coronary Syndrome Given 10/14/2023 2:59 PM BUILDING ADMIN 3,000 Units heparin 5,000 unit/mL injection 3,000 Units 3,000 Units, intravenous, Every 6 hours PRN, PTT less than 46 seconds, Starting on Gregoria 11/02/23 at 1225, Subsequent bolus during heparin infusion., Indications: atrial fibrillationIndications:atri al fibrillation Given 11/02/2023 10:18 PM CDT 3,000 Units heparin in 0.45% sodium chloride 25,000 units/250 mL (100 units/mL) infusion (premix) 0-33 Units/kg/hr ? 123.1 kg (0-40.623 mL/hr, rounded to 0-40.62 mL/hr), intravenous, Titrated, Starting on 10/14/23 at 0130, WEIGHT-BASED HEPARIN INFUSION Initial dose:: 8.1 Units/kg/hr. Max initial dose:1,000 units/hr. Adjust infusion based upon nomogram: PTT less than 46 seconds: Bolus if ordered (see PRN bolus order), then increase infusion dose 3 units/kg/hour PTT 46 - 55 seconds: Bolus if ordered (see PRN bolus order), then increase infusion dose 2 units/kg/hour PTT 56 - 65 seconds: Increase infusion dose 1 unit/kg/hour PTT 66 - 100 seconds: No change PTT 101 - 110 seconds: Decrease infusion dose 1 unit/kg/hour PTT 111 - 120 seconds: Hold infusion for 30 minutes, then decrease infusion dose 2 units/kg/hour PTT greater than 120 seconds: Hold infusion for 1 hour, then decrease infusion dose 3 units/kg/hour Draw STAT PTT 6 hrs after initiation of heparin infusion, draw STAT PTT 6 hours after each dose change, and every 6 hours until 2 consecutive PTTs are within therapeutic range. Once two consecutive PTT's are therapeutic (66-100 seconds), then draw PTT every AM until heparin is discontinued., Indications: Acute Coronary SyndromeIndications:Acute Coronary Syndrome New Bag 10/17/2023 4:27 AM BUILDING ADMIN 12.1 Units/kg/hr 14.9 mL/hr New Bag 10/16/2023 11:02 AM BUILDING ADMIN 12.1 Units/kg/hr 14.9 m L/hr New Bag 10/15/2023 6:16 PM BUILDING ADMIN 12.1 Units/kg/hr 14.9 mL /hr heparin in 0.45% sodium chloride 25,000 units/250 mL (100 units/mL) infusion (premix) 0-33 Units/kg/hr ? 126.2 kg (0-41.646 mL/hr, rounded to 0-41.65 mL/hr), intravenous, Titrated, Starting on Mon10/18/23 at 0915, WEIGHT-BASED HEPARIN INFUSION Initial dose:: 9 Units/kg/hr. Max initial dose: 1,000 units/hr. Adjust infusion based upon nomogram: PTT less than 46 seconds:? Bolus if ordered (see PRN bolus order) , then increase infusion dose 3 units/kg/hour PTT 46 - 55 seconds:? Bolus if ordered (see PRN bolus order), then increase infusion dose 2 units/kg/hour PTT 56 - 65 seconds:? Increase infusion dose 1 unit/kg/hour PTT 66 - 100 seconds:? No??change PTT 101 - 110 seconds:? Decrease infusion dose 1 unit/kg/hour PTT 111 - 120 seconds:? Hold infusion for 30 minutes, then decrease infusion dose 2 units/kg/hour PTT greater than 120 seconds:?Hold infusion for 1 hour, then decreaseinfusion dose 3 units/kg/hour Draw STAT PTT 6 hrs after initiation of heparin infusion, draw STAT PTT 6 hours after each dose change, and every 6 hours until 2 consecutive PTTs are within therapeutic range. Once two consecutive PTT's are therapeutic (66-100 seconds), then draw PTT every AM until heparin is discontinued. , Indications: Mechanical Valve Thromboembolism ProphylaxisIndications:Rafter Cutting Machine Operator al Valve Thromboembolism Prophylaxis New Bag 10/20/2023 6:32 AM BUILDING ADMIN 9.3 Units/kg/hr 11.74 mL/hr Rate/Dose Change 10/20/2023 3:30 AM BUILDING ADMIN 9.3 Units/kg/hr 11 .74 mL/hr Rate/Dose Change 10/19/2023 3:21 PM BUILDING ADMIN 11.3 Units/kg/hr 1 4.26 mL/hr heparin in 0.45% sodium chloride 25,000 units/250 mL (100 units/mL) infusion (premix) 0-33 Units/kg/hr ? 129.7 kg (0-42.801 mL/hr, rounded to 0-42.8 mL/hr), intravenous, Titrated, Starting on Mon10/24/23 at 1045, WEIGHT-BASED HEPARIN INFUSION Initial dose:: 7.7 Units/kg/hr. Max initial dose: 1,000 units/hr. Adjust infusion based upon nomogram: PTT less than 46 seconds:? Bolus if ordered (see PRN bolus order) , then increase infusion dose 3 units/kg/hour PTT 46 - 55 seconds:? Bolus if ordered (see PRN bolus order), then increase infusion dose 2 units/kg/hour PTT 56 - 65 seconds:? Increase infusion dose 1 unit/kg/hour PTT 66 - 100 seconds:? No??change PTT 101 - 110 seconds:? Decrease infusion dose 1 unit/kg/hour PTT 111 - 120 seconds:? Hold infusion for 30 minutes, then decrease infusion dose 2 units/kg/hour PTT greater than 120 seconds:?Hold infusion for 1 hour, then decreaseinfusion dose 3 units/kg/hour Draw STAT PTT 6 hrs after initiation of heparin infusion, draw STAT PTT 6 hours after each dose change, and every 6 hours until 2 consecutive PTTs are within therapeutic range. Once two consecutive PTT's are therapeutic (66-100 seconds), then draw PTT every AM until heparin is discontinued., Indications: atrial fibrillationIndications:atrial fibrillation New Bag 10/27/2023 10:58 AM BUILDING ADMIN 12.7 Units/kg/hr 16.47 mL/hr New Bag 10/26/2023 4:50 PM BUILDING ADMIN 12.7 Units/kg/hr 16.47 m L/hr Rate/Dose Verify 10/26/2023 3:28 PM BUILDING ADMIN 12.7 Units/kg/hr 1 6.47 mL/hr heparin in 0.45% sodium chloride 25,000 units/250 mL (100 units/mL) infusion (premix) 0-33 Units/kg/hr ? 124.1 kg (0-40.953 mL/hr, rounded to 0-40.95 mL/hr), intravenous, Titrated, Starting on Gregoria 11/02/23 at 1300, WEIGHT-BASED HEPARIN INFUSION Initial dose:: 8 Units/kg/hr. Max initial dose: 1,000 units/hr. Adjust infusion based upon nomogram: PTT less than 46 seconds:? Bolus if ordered (see PRN bolus order) , then increase infusion dose 3 units/kg/hour PTT 46 - 55 seconds:? Bolus if ordered (see PRN bolus order), then increase infusion dose 2 units/kg/hour PTT 56 - 65 seconds:? Increase infusion dose 1 unit/kg/hour PTT 66 - 100 seconds:? No??change PTT 101 - 110 seconds:? Decrease infusion dose 1 unit/kg/hour PTT 111 - 120 seconds:? Hold infusion for 30 minutes, then decrease infusion dose 2 units/kg/hour PTT greater than 120 seconds:?Hold infusion for 1 hour, then decreaseinfusion dose 3 units/kg/hour Draw STAT PTT 6 hrs after initiation of heparin infusion, draw STAT PTT 6 hours after each dose change, and every 6 hours until 2 consecutive PTTs are within therapeutic range. Once two consecutive PTT's are therapeutic (66-100 seconds), then draw PTT every AM until heparin is discontinued., Indications: atrial fibrillationIndications:atri al fibrillation Rate/Dose Change 11/03/2023 12:57 PM CDT 14 Units/kg/hr 17.37 mL/hr New Bag 11/03/2023 9:15 AM CDT 13 Units/kg/hr 16.13 mL/ hr New Bag 11/03/2023 5:34 AM CDT 13 Units/kg/hr 16.13 mL/ hr HYDROcodone-acetaminophen (NORCO) 5-325 mg per tablet 1 tablet 1 tablet, oral, Once, On Mon10/25/23 at 1130, For 1 dose, Indications: PainIndications:Pain Given 10/25/2023 11:13 AM BUILDING ADMIN 1 tablet HYDROcodone-acetaminophen (NORCO) 5-325 mg per tablet 1 tablet 1 tablet, oral, Every 4 hours PRN, 2nd line for pain, Starting on Mon10/27/23 at 1114, Indications: PainIndications:Pain Given 11/03/2023 8:39 AM CDT 1 ta blet Given 11/02/2023 8:24 PM CDT 1 tablet Given 11/01/2023 8:22 AM CDT 1 tablet HYDROcodone-acetaminophen (NORCO) 5-325 mg per tablet 2 tablet 2 tablet, oral, Every 4 hours PRN, 3rd line for pain, Starting on Mon10/27/23 at 1114, Indications: PainIndications:Pain Given 10/30/2023 6:29 AM CDT 2 ta blets Given 10/29/2023 9:52 PM CDT 2 tablets HYDROmorphone (DILAUDID) injection 0.5 mg 0.5 mg, intravenous, Administer over 2 Minutes, Every 2 hours PRN, breakthrough pain, Starting on Mon10/18/23 at 0833, May administer 1 hour after second dose of 1st line analgesic agent for uncontrolled or increasing pain., Indications: PainIndications:Pain Given 10/18/2023 8:42 AM BUILDING ADMIN 0.5 mg HYDROmorphone (PF) (DILAUDID) injection 0.2 mg 0.2 mg, intravenous, Administer over 2 Minutes, Every 2 hours PRN, breakthrough pain, Starting on Mon10/17/23 at 1324, May administer 1 hour after second dose of 1st line analgesic agent for uncontrolled or increasing pain., Indications: PainIndications:Pain Given 10/18/2023 7:13 AM BUILDING ADMIN 0.2 mg insulin glargine (LANTUS, SEMGLEE) 100 unit/mL injection 15 Units 15 Units, subcutaneous, Every morning, First dose (after last modification) on Mon10/14/23 at 0915, Do not mix with other insulins Given 10/14/2023 10:04 AM BUILDING ADMIN 15 Units Left Upper Arm insulin glargine (LANTUS, SEMGLEE) 100 unit/mL injection 20 Units 20 Units, subcutaneous, Every morning, First dose (after last modification) on 10/16/23 at 0900, Do not mix with other insulins Given 10/16/2023 8:19 AM BUILDING ADMIN 20 Units Left Lower Abdomen insulin glargine (LANTUS, SEMGLEE) 100 unit/mL injection 30 Units 30 Units, subcutaneous, Every morning, First dose (after last modification) on 10/15/23 at 0900, Do not mix with other insulins Given 10/15/2023 8:40 AM BUILDING ADMIN 30 Units Right Upper Arm insulin lispro (HumaLOG, ADMELOG) 100 unit/mL injection 0-10 Units 0-10 Units, subcutaneous, Every 4 hours scheduled, First dose on 10/14/23 at 0130, Blood glucose mg/dL: 149 or less: No insulin 150-199: add 2 unit 200-249: add 4 units 250-299: add 6 units 300-349: add 8 units and notify physician for adjustment of insulin orders. 350-399: add 10 units and notify physician for adjustment of insulin orders. Over 400: Notify physician for adjustment of insulin orders. Do NOT hold for NPO Status, Indications: Diabetes MellitusIndications:Diabetes Mellitus Given 10/14/2023 4:01 AM BUILDING ADMIN 10 Units Left Upper Arm Given 10/14/2023 2:24 AM BUILDING ADMIN 10 Units Le ft Upper Arm insulin lispro (HumaLOG, ADMELOG) 100 unit/mL injection 0-10 Units 0-10 Units, subcutaneous, 3 times daily with meals, First dose (after last modification) on 10/14/23 at 1200, Blood glucose mg/dL: 149 or less: No insulin 150-199: add 2 unit 200-249: add 4 units 250-299: add 6 units 300-349: add 8 units and notify physician for adjustment of insulin orders. 350-399: add 10 units and notify physician for adjustment of insulin orders. Over 400: Notify physician for adjustment of insulin orders. Do NOT hold for NPO Status, Indications: Diabetes MellitusIndications:Diabetes Mellitus Given 10/16/2023 8:20 AM BUILDING ADMIN 6 Units Left Lower Abdomen Given 10/15/2023 12:22 PM BUILDING ADMIN 2 Units R ight Upper Abdomen Given 10/15/2023 8:40 AM BUILDING ADMIN 4 Units Ri ght Upper Arm insulin lispro (HumaLOG, ADMELOG) 100 unit/mL injection 0-10 Units 0-10 Units, subcutaneous, 3 times daily with meals, First dose (after last modification) on Mon10/20/23 at 0800, Blood glucose mg/dL: 149 or less: No insulin 150-199: add 2 unit 200-249: add 4 units 250-299: add 6 units 300-349: add 8 units 350-399: add 10 units Over 400: Notify physician for adjustment of insulin orders. Do NOT hold for NPO Status, Indications: Diabetes MellitusIndications:Diabetes Mellitus Given 10/21/2023 1:18 PM BUILDING ADMIN 6 Units Left Upper Arm Given 10/21/2023 8:38 AM BUILDING ADMIN 6 Units Ri ght Upper Arm insulin lispro (HumaLOG, ADMELOG) 100 unit/mL injection 0-10 Units 0-10 Units, subcutaneous, 4 times daily (with meals and nightly), First dose (after last modification) on Mon10/21/23 at 1800, Blood glucose mg/dL: 149 or less: No insulin 150-199: add 2 unit 200-249: add 4 units 250-299: add 6 units 300-349: add 8 units 350-399: add 10 units Over 400: Notify physician for adjustment of insulin orders. Do NOT hold for NPO Status, Indications: Diabetes Mellitus, On hold since Mon10/23/2023 at 1051 until manually unheldIndications:Diabetes Mellitus Given 10/23/2023 8:03 AM BUILDING ADMIN 4 Units Right Upper Arm Given 10/22/2023 9:17 PM BUILDING ADMIN 2 Units Le ft Upper Arm Given 10/22/2023 1:39 PM BUILDING ADMIN 2 Units Ri ght Upper Arm insulin lispro (HumaLOG, ADMELOG) 100 unit/mL injection 1 Units 1 Units, subcutaneous, Once, On Mon10/17/23 at 0245, For 1 dose Given 10/17/2023 2:33 AM BUILDING ADMIN 1 Units Left Lower Abdomen insulin lispro (HumaLOG, ADMELOG) 100 unit/mL injection 10 Units 10 Units, subcutaneous, 3 times daily with meals, First dose (after last modification) on Mon10/16/23 at 1800 Given 10/16/2023 5:33 PM BUILDING ADMIN 10 Units Left Lower Abdomen insulin lispro (HumaLOG, ADMELOG) 100 unit/mL injection 12 Units 12 Units, subcutaneous, 3 times daily with meals, First dose (after last modification) on Mon10/15/23 at 0800 Given 10/16/2023 12:24 PM BUILDING ADMIN 12 Units Left Lower Abdomen Given 10/16/2023 8:19 AM BUILDING ADMIN 12 Units Le ft Lower Abdomen Given 10/15/2023 6:16 PM BUILDING ADMIN 12 Units Le ft Upper Arm insulin lispro (HumaLOG, ADMELOG) 100 unit/mL injection 3 Units 3 Units, subcutaneous, Once, On Tu10/17/23 at 0700, For 1 dose Given 10/17/2023 6:24 AM BUILDING ADMIN 3 Units Left Lower Abdomen insulin lispro (HumaLOG, ADMELOG) 100 unit/mL injection 3 Units 3 Units, subcutaneous, 3 times daily with meals, First dose on Mon10/20/23 at 0800, If BG greater than or equal to 100 mg/dL, give dose with meals when tray arrives in the room. If BG less than 100 mg/dL or history of poor intake, give after meals. If patient eating less than 50% of meal, call MD for holding or reducing meal insulin dose. Hold prandial insulin if NPO, unable to eat, or if BG less than 70 mg/dL., Indications: Diabetes MellitusIndications:Diabetes Mellitus Given 10/20/2023 1:23 PM BUILDING ADMIN 3 Units Right Upper Arm Given 10/20/2023 9:40 AM BUILDING ADMIN 3 Units Le ft Upper Arm insulin lispro (HumaLOG, ADMELOG) 100 unit/mL injection 4 Units 4 Units, subcutaneous, Once, On 10/14/23 at 2200, For 1 dose Given 10/14/2023 9:27 PM BUILDING ADMIN 4 Units Left Lower Abdomen insulin lispro (HumaLOG, ADMELOG) 100 unit/mL injection 4 Units 4 Units, subcutaneous, 3 times daily with meals, First dose (after last modification) on Mon10/23/23 at 0800, If BG greater than or equal to 100 mg/dL, give dose with meals when tray arrives in the room. If BG less than 100 mg/dL or history of poor intake, give after meals. If patient eating less than 50% of meal, call MD for holding or reducing meal insulin dose. Hold prandial insulin if NPO, unable to eat, or if BG less than 70 mg/dL., Indications: Diabetes Mellitus, On hold since Mon10/23/2023 at 1051 until manually unheldIndications:Diabetes Mellitus Given 10/23/2023 8:03 AM BUILDING ADMIN 4 Units Right Upper Arm insulin lispro (HumaLOG, ADMELOG) 100 unit/mL injection 5 Units 5 Units, subcutaneous, 3 times daily with meals, First dose (after last modification) on 10/14/23 at 1030 Given 10/14/2023 5:33 PM BUILDING ADMIN 5 Units Left Upper Arm Given 10/14/2023 10:04 AM BUILDING ADMIN 5 Units L eft Upper Arm insulin lispro (HumaLOG, ADMELOG) 100 unit/mL injection 5 Units 5 Units, subcutaneous, Once as needed, other, insulin pump not functional, Starting on Mon10/23/23 at 1052, For 1 dose, Administer back up dose if insulin pump is not functional. Call MD for alternate insulin regimen., Indications: Diabetes MellitusIndications:Diabetes Mellitus insulin lispro (HumaLOG, ADMELOG) 100 unit/mL injection 6 Units 6 Units, subcutaneous, Once, On 10/15/23 at 0215, For 1 dose Given 10/15/2023 1:51 AM BUILDING ADMIN 6 Units Left Lower Abdomen insulin lispro (HumaLOG, ADMELOG) 100 unit/mL injection 6 Units 6 Units, subcutaneous, Once, On Mon10/15/23 at 0630, For 1 dose Given 10/15/2023 6:06 AM BUILDING ADMIN 6 Units Right Upper Arm insulin lispro (HumaLOG, ADMELOG) 100 unit/mL injection 6 Units 6 Units, subcutaneous, Once, On Mon10/16/23 at 0545, For 1 dose Given 10/16/2023 5:29 AM BUILDING ADMIN 6 Units Left Lower Abdomen insulin lispro (HumaLOG, ADMELOG) 100 unit/mL injection 6 Units 6 Units, subcutaneous, 3 times daily with meals, First dose (after last modification) on 10/21/23 at 1345, If BG greater than or equal to 100 mg/dL, give dose with meals when tray arrives in the room. If BG less than 100 mg/dL or history of poor intake, give after meals. If patient eating less than 50% of meal, call MD for holding or reducing meal insulin dose. Hold prandial insulin if NPO, unable to eat, or if BG less than 70 mg/dL., Indications: Diabetes MellitusIndications:Diabetes Mellitus Given 10/22/2023 6:43 PM BUILDING ADMIN 4 Units Left Upper Arm Given 10/22/2023 1:39 PM BUILDING ADMIN 6 Units Ri ght Upper Arm Given 10/22/2023 8:23 AM BUILDING ADMIN 6 Units Ri ght Upper Arm insulin NPH (HumuLIN N, NovoLIN N) 100 unit/mL injection 15 Units 15 Units, subcutaneous, Daily, First dose on Mon10/20/23 at 0900, Reason for prescribing NPH: basal, Indications: Diabetes MellitusIndications:Diabetes Mellitus Given 10/21/2023 8:38 AM BUILDING ADMIN 15 Units Left Upper Arm Given 10/20/2023 9:40 AM BUILDING ADMIN 15 Units Le ft Upper Abdomen insulin NPH (HumuLIN N, NovoLIN N) 100 unit/mL injection 15 Units 15 Units, subcutaneous, Daily, First dose (after last modification) on Mon10/23/23 at 0900, Reason for prescribing NPH: basal, Indications: Diabetes Mellitus, On hold since Mon10/23/2023 at 1051 until manually unheldIndications:Diabetes Mellitus Given 10/23/2023 8:03 AM BUILDING ADMIN 15 Units Right Upper Arm insulin NPH (HumuLIN N, NovoLIN N) 100 unit/mL injection 20 Units 20 Units, subcutaneous, Daily, First dose (after last modification) on Mon10/22/23 at 0900, Reason for prescribing NPH: basal, Indications: Diabetes MellitusIndications:Diabetes Mellitus Given 10/22/2023 8:23 AM BUILDING ADMIN 20 Units Left Upper Arm insulin NPH (HumuLIN N, NovoLIN N) 100 unit/mL injection 30 Units 30 Units, subcutaneous, Nightly, First dose on Mon10/19/23 at 2200, At 10 PM with PD at [place]. Hold if no PD planned., Reason for prescribing NPH: peritoneal dialysis, Indications: Diabetes MellitusIndications:Diabetes Mellitus Given 10/20/2023 9:24 PM BUILDING ADMIN 30 Units Left Outer Thigh Given 10/19/2023 11:00 PM BUILDING ADMIN 30 Units L eft Lower Abdomen insulin NPH (HumuLIN N, NovoLIN N) 100 unit/mL injection 35 Units 35 Units, subcutaneous, Nightly, First dose (after last modification) on Mon10/23/23 at 2200, At 10 PM with PD at [place]. Hold if no PD planned., Reason for prescribing NPH: peritoneal dialysis, Indications: Diabetes Mellitus, On hold since Mon10/23/2023 at 1051 until manually unheldIndications:Diabetes Mellitus insulin NPH (HumuLIN N, NovoLIN N) 100 unit/mL injection 40 Units 40 Units, subcutaneous, Nightly, First dose (after last modification) on 10/21/23 at 2200, At 10 PM with PD at [place]. Hold if no PD planned., Reason for prescribing NPH: peritoneal dialysis, Indications: Diabetes MellitusIndications:Diabetes Mellitus Given 10/22/2023 11:57 PM BUILDING ADMIN 40 Units Left Upper Arm Given 10/21/2023 9:35 PM BUILDING ADMIN 40 Units Le ft Upper Arm INSULIN PUMP REFILL lispro (HumaLOG, ADMELOG) solution 300 Units 300 Units, other, Once, On 10/28/23 at 2115, For 1 dose, For refill into insulin pump reservoir ONLY. Not for direct administration to the patient. Pump Refill 10/28/2023 11:18 PM BUILDING ADMIN 300 Units insulin regular bolus from bag 2-14 Units 2-14 Units, intravenous, Every 1 hour PRN, high blood sugar, Starting on Mon10/17/23 at 1329, Bolus as directed in insulin infusion orders., Indications: HyperglycemiaIndications:Hyperglyc emia Bolus from Bag 10/19/2023 5:05 AM BUILDING ADMIN 2 Units Bolus from Bag 10/18/2023 6:08 AM BUILDING ADMIN 2 Units insulin regular in 0.9% sodium chloride (MYXREDLIN) 100 unit/100 mL (1 unit/mL) infusion (premix) 0-30 Units/hr (0-30 mL/hr), 1 units/mL, intravenous, Titrated, Starting on Mon10/17/23 at 1400, Until Mon10/20/23 at 1109, Indications: Hyperglycemia, NON-WEIGHT BASED DOSING BLOOD GLUCOSE (BG) Less than 60 mg/dL Give dextrose as ordered in protocol STOP INSULIN RECHECK BLOOD GLUCOSE IN 30 MINUTES If blood glucose is greater than or equal to 75 mg/dL, restart insulin infusion at 50% of previous rate. If blood glucose is less than 75 mg/dL, call MD/OPERATING ROOM COORDINATOR 60 - 74 mg/dL: If previous BG was greater than 90 mg/dL, give 125 mL D10W (Glucose is dropping FAST) STOP INSULIN RECHECK BLOOD GLUCOSE IN 30 MINUTES If blood glucose is greater than or equal to 75 mg/dL, restart insulin infusion at 50% of previous rate. 75 - 99 mg/dL If higher than last BG, maintain same rate If lower than last BG by less than 10 mg/dL OR equal to last BG, decrease rate by 0.5 units/hr. If lower than last BG by more than 10 mg/dL, decrease rate by 50%. 100 - 150 mg/dL If higher than last BG by more than 10 mg/dL, increase rate by 0.5 units/hr. AT TARGET If within 10 mg/dL of the last BG continue current rate. If lower than last BG by more than 10 mg/dL, decrease rate by 0.5 units/hr. 151 - 180 mg/dL If higher than last BG by more than 20 mg/dL, increase rate by 1 units/hr If within 20 mg/dL of last BG, increase rate by 0.5 unit/hr If lower than last BG by 20-50 mg/dL, continue same rate If lower than last BG by more than 50 mg/dL, decrease rate by 50% (Glucose is dropping FAST) 181 - 240 mg/dL If higher than last BG OR lower than last BG by less than 50 mg/dL, bolus with 2 units IV and increase rate by 2 units/hr RECHECK BLOOD GLUCOSE IN 30 MINUTES. If BG has not decreased after 3 consecutive increases in insulin infusion, then bolus with 4 units and double the infusion rate. If lower than last BG by more than 50 mg/dL, continue same rate. 241 - 300 mg/dL If higher than last BG OR lower than last BG by less than 80 mg/dL, bolus per with 6 units and DOUBLE infusion rate up to maximum 30 units/hr RECHECK BLOOD GLUCOSE IN 30 MINUTES. If lower than last BG by more than 80 mg/dL, continue same rate. 301 - 360 mg/dL If higher than last BG OR lower than last BG by less than 80 mg/dL, bolus per with 10 units and DOUBLE infusion rate up to maximum 30 units/hr RECHECK BLOOD GLUCOSE IN 30 MINUTES. If lower than last BG by more than 80 mg/dL, continue same rate. Greater than 360 mg/dL If higher than last BG OR lower than last BG by less than 80 mg/dL, bolus per with 14 units and DOUBLE infusion rate up to maximum 30 units/hr RECHECK BLOOD GLUCOSE IN 30 MINUTES. If lower than last BG by more than 80 mg/dL, continue same rate. If blood glucose is more than 300 mg/dL for 4 consecutive readings, call MD/OPERATING ROOM COORDINATOR for additional IV bolus orders. When new IV tubing is used, completely prime the tubing. Once primed, waste an additional 20 ml of insulin infusion using the IV pump prior to connecting to patient., RoutineIndications:Hyperglyc emia Rate/Dose Change 10/20/2023 2:00 AM BUILDING ADMIN 2 Units/hr 2 mL/hr Rate/Dose Change 10/20/2023 12:00 AM BUILDING ADMIN 1 Units/hr 1 mL/h r Rate/Dose Change 10/19/2023 10:00 PM BUILDING ADMIN 1.5 Units/hr 1.5 mL/hr INSULIN SUBCUTANEOUS PUMP insulin lispro (HumaLOG) 100 UNIT/ML patient supplied pump 0-25 Units 0-25 Units, subcutaneous, Continuous, Starting on Mon10/23/23 at 1130, Current pump settings will remain until a member of the Endocrine team, Maternal- Medicine (if applicable), or designee evaluates the patient and/or adjusts the pump settings., Attestation: Possesses no safety concerns (eg. diagnosis of DKA/HHS, admit to ICU, risk of self harm), Attestation: Possesses visual acuity and fine motor skills to operate pump, Attestation: Alert and oriented x 4, Attestation: Verbalizes desire to remain on insulin pump during hospitalization and understands insulin pump agreement, Insulin Pump: Insulin Pump Settings, Insulin Pump Settings: Basal Rate, Carbohydrate Ratio, High Glucose Correction, Basal Rate (units/hr): 3, From (hh:mm): 1:00 AM, To (hh:mm): 8:00 AM, Basal Rate (units/hr): 1.5, From (hh:mm): 8:00 AM, To (hh:mm): 8:00 AM, Basal Rate (units/hr): 3, From (hh:mm): 8:00 PM, To (hh:mm): 12:00 AM, Carbohydrate Ratio: 1 unit per how many gm carbohydrate: 9, From: (hh:mm): 1:00 AM, To:(hh:mm): 1:00 PM, High Glucose Correction: 1 unit per how many mg/dL over target: 25, From:(hh:mm): 1:00 AM, To:(hh:mm): 1:00 PM, Choose Target (mg/dL): 120, Indications: Diabetes MellitusIndications:Diabe canelo Mellitus Self Administered Via Pump 10/24/2023 5:31 PM BUILDING ADMIN 8.15 Units Left Upper Arm Self Administered Via Pump 10/24/2023 12:43 PM BUILDING ADMIN 0 Units Left Upper Arm Self Administered Via Pump 10/24/2023 8:12 AM BUILDING ADMIN 13.4 Uni ts Left Upper Arm INSULIN SUBCUTANEOUS PUMP insulin lispro (HumaLOG) 100 UNIT/ML patient supplied pump 0-25 Units 0-25 Units, subcutaneous, Continuous, Starting on Mon10/25/23 at 1145, Current pump settings will remain until a member of the Endocrine team, Maternal- Medicine (if applicable), or designee evaluates the patient and/or adjusts the pump settings., Attestation: Possesses no safety concerns (eg. diagnosis of DKA/HHS, admit to ICU, risk of self harm), Attestation: Possesses visual acuity and fine motor skills to operate pump, Attestation: Alert and oriented x 4, Attestation: Verbalizes desire to remain on insulin pump during hospitalization and understands insulin pump agreement, Insulin Pump: Insulin Pump Settings, Insulin Pump Settings: Basal Rate, Carbohydrate Ratio, High Glucose Correction, Basal Rate (units/hr): 2.7, From (hh:mm): 1:00 AM, To (hh:mm): 8:00 AM, Basal Rate (units/hr): 1.6, From (hh:mm): 8:00 AM, To (hh:mm): 8:00 AM, Basal Rate (units/hr): 2.7, From (hh:mm): 8:00 PM, To (hh:mm): 12:00 AM, Carbohydrate Ratio: 1 unit per how many gm carbohydrate: 9, From: (hh:mm): 1:00 AM, To:(hh:mm): 1:00 PM, High Glucose Correction: 1 unit per how many mg/dL over target: 25, From:(hh:mm): 1:00 AM, To:(hh:mm): 1:00 PM, Choose Target (mg/dL): 120, Indications: Diabetes MellitusIndications:Diabe canelo Mellitus Self Administered Via Pump 10/30/2023 6:21 AM CDT 4.1 Units Other (Comment) Self Administered Via Pump 10/29/2023 10:04 PM CDT 3.05 Un its Other (Comment) Self Administered Via Pump 10/29/2023 5:47 PM CDT 17.5 Uni ts Left Upper Arm INSULIN SUBCUTANEOUS PUMP insulin lispro (HumaLOG) 100 UNIT/ML patient supplied pump 0-25 Units 0-25 Units, subcutaneous, Continuous, Starting on Mon10/30/23 at 1130, Current pump settings will remain until a member of the Endocrine team, Maternal- Medicine (if applicable), or designee evaluates the patient and/or adjusts the pump settings., Attestation: Possesses no safety concerns (eg. diagnosis of DKA/HHS, admit to ICU, risk of self harm), Attestation: Possesses visual acuity and fine motor skills to operate pump, Attestation: Alert and oriented x 4, Attestation: Verbalizes desire to remain on insulin pump during hospitalization and understands insulin pump agreement, Insulin Pump: Insulin Pump Settings, Insulin Pump Settings: Basal Rate, Carbohydrate Ratio, High Glucose Correction, Basal Rate (units/hr): 4.5, From (hh:mm): 1:00 AM, To (hh:mm): 8:00 AM, Basal Rate (units/hr): 2.5, From (hh:mm): 8:00 AM, To (hh:mm): 8:00 AM, Basal Rate (units/hr): 4.5, From (hh:mm): 8:00 PM, To (hh:mm): 12:00 AM, Carbohydrate Ratio: 1 unit per how many gm carbohydrate: 7, From: (hh:mm): 1:00 AM, To:(hh:mm): 1:00 PM, High Glucose Correction: 1 unit per how many mg/dL over target: 20, From:(hh:mm): 1:00 AM, To:(hh:mm): 1:00 PM, Choose Target (mg/dL): 120, Indications: Diabetes MellitusIndications:Diabe canelo Mellitus Self Administered Via Pump 10/31/2023 12:56 PM CDT 13.85 Units Left Forearm Self Administered Via Pump 10/31/2023 8:18 AM CDT 18.7 Uni ts Left Forearm Self Administered Via Pump 10/30/2023 12:15 PM CDT 2.25 Un its Left Lower Abdomen INSULIN SUBCUTANEOUS PUMP insulin lispro (HumaLOG) 100 UNIT/ML patient supplied pump 0-25 Units 0-25 Units, subcutaneous, Continuous, Starting on Mon10/31/23 at 1745, Current pump settings will remain until a member of the Endocrine team, Maternal- Medicine (if applicable), or designee evaluates the patient and/or adjusts the pump settings., Attestation: Possesses no safety concerns (eg. diagnosis of DKA/HHS, admit to ICU, risk of self harm), Attestation: Possesses visual acuity and fine motor skills to operate pump, Attestation: Alert and oriented x 4, Attestation: Verbalizes desire to remain on insulin pump during hospitalization and understands insulin pump agreement, Insulin Pump: Insulin Pump Settings, Insulin Pump Settings: Basal Rate, Carbohydrate Ratio, High Glucose Correction, Basal Rate (units/hr): 5.5, From (hh:mm): 1:00 AM, To (hh:mm): 8:00 AM, Basal Rate (units/hr): 3.2, From (hh:mm): 8:00 AM, To (hh:mm): 8:00 AM, Basal Rate (units/hr): 5.5, From (hh:mm): 8:00 PM, To (hh:mm): 12:00 AM, Carbohydrate Ratio: 1 unit per how many gm carbohydrate: 5, From: (hh:mm): 1:00 AM, To:(hh:mm): 1:00 PM, High Glucose Correction: 1 unit per how many mg/dL over target: 15, From:(hh:mm): 1:00 AM, To:(hh:mm): 1:00 PM, Choose Target (mg/dL): 120, Indications: Diabetes MellitusIndications:Diabe canelo Mellitus Self Administered Via Pump 11/01/2023 8:30 AM CDT 15.55 Units Left Forearm Self Administered Via Pump 10/31/2023 5:48 PM CDT 21.9 Uni ts Left Forearm INSULIN SUBCUTANEOUS PUMP insulin lispro (HumaLOG) 100 UNIT/ML patient supplied pump 0-25 Units 0-25 Units, subcutaneous, Continuous, Starting on Mon11/01/23 at 1200, Current pump settings will remain until a member of the Endocrine team, Maternal- Medicine (if applicable), or designee evaluates the patient and/or adjusts the pump settings., Attestation: Possesses no safety concerns (eg. diagnosis of DKA/HHS, admit to ICU, risk of self harm), Attestation: Possesses visual acuity and fine motor skills to operate pump, Attestation: Alert and oriented x 4, Attestation: Verbalizes desire to remain on insulin pump during hospitalization and understands insulin pump agreement, Insulin Pump: Insulin Pump Settings, Insulin Pump Settings: Basal Rate, Carbohydrate Ratio, High Glucose Correction, Basal Rate (units/hr): 6, From (hh:mm): 1:00 AM, To (hh:mm): 8:00 AM, Basal Rate (units/hr): 3.2, From (hh:mm): 8:00 AM, To (hh:mm): 8:00 AM, Basal Rate (units/hr): 6, From (hh:mm): 8:00 PM, To (hh:mm): 12:00 AM, Carbohydrate Ratio: 1 unit per how many gm carbohydrate: 5, From: (hh:mm): 1:00 AM, To:(hh:mm): 1:00 PM, High Glucose Correction: 1 unit per how many mg/dL over target: 15, From:(hh:mm): 1:00 AM, To:(hh:mm): 1:00 PM, Choose Target (mg/dL): 120, Indications: Diabetes MellitusIndications:Diab etes Mellitus Self Administered Via Pump 11/03/2023 6:32 PM CDT 23.15 Units Left Upper Arm Self Administered Via Pump 11/03/2023 1:03 PM CDT 13.95 Un its Left Upper Arm Self Administered Via Pump 11/03/2023 11:39 AM CDT 4.7 Uni ts Left Upper Arm isosorbide mononitrate ER (IMDUR) extended release tablet 60 mg 60 mg, oral, Daily, First dose on Mon10/14/23 at 0900, Tablets that are scored may be split, but do not crush, chew, dissolve, open or otherwise manipulate tablet/capsule. Given 10/16/2023 8:18 AM BUILDING ADMIN 60 m g Given 10/15/2023 8:41 AM BUILDING ADMIN 60 mg Given 10/14/2023 8:45 AM BUILDING ADMIN 60 mg Lactated Ringer's (LR) bolus 500 mL 500 mL, intravenous, Once, On Gregoria 10/19/23 at 1400, For 1 dose New Bag 10/19/2023 2:55 PM BUILDING ADMIN 500 mL 999 mL/hr levothyroxine (SYNTHROID) tablet 25 mcg 25 mcg, oral, Daily (early AM), First dose on Mon10/29/23 at 0600, Administer on an empty stomach, preferably 30 minutes before breakfast. Take 4 hours apart from antacids, iron and calcium products. Separate from tube feeds, if applicable. Given 11/03/2023 5:30 AM CDT 25 mcg Given 11/02/2023 6:22 AM CDT 25 mcg Given 11/01/2023 5:47 AM CDT 25 mcg magnesium sulfate 2 g/50 mL in water (premix) 2 g 2 g, intravenous, Administer over 60 Minutes, Every 2 hours PRN, magnesium level 2 mg/dL or less, Starting on Mon10/17/23 at 1324, Discuss with provider before administering if creatinine equal to or greater than 1.8 mg/dL, urine output less than 20 ml/hr, and/or patient on renal replacement therapy (CRRT, hemodialysis). magnesium sulfate 2 g/50 mL in water (premix) 2 g 2 g, intravenous, Administer over 60 Minutes, Once, On Mon10/17/23 at 2000, For 1 dose, Indications: hypomagnesemiaIndications:hypomagnesemia New Bag 10/17/2023 8:15 PM BUILDING ADMIN 2 g metoprolol tartrate (LOPRESSOR) immediate release split tablet 6.25 mg 6.25 mg, oral, Once, On Mon10/20/23 at 1100, For 1 dose Given 10/20/2023 10:29 AM BUILDING ADMIN 6.25 mg metoprolol tartrate (LOPRESSOR) immediate release split tablet 6.25 mg 6.25 mg, oral, 2 times daily, First dose (after last reorder) on Mon10/20/23 at 2100 Given 10/22/2023 8:23 AM BUILDING ADMIN 6.25 mg Given 10/21/2023 9:21 PM BUILDING ADMIN 6.25 mg Given 10/21/2023 4:41 AM BUILDING ADMIN 6.25 mg metoprolol tartrate (LOPRESSOR) immediate release tablet 12.5 mg 12.5 mg, oral, 2 times daily, First dose (after last modification) on Mon10/22/23 at 2100 Given 11/03/2023 8:39 AM CDT 12.5 mg Given 11/02/2023 8:23 PM CDT 12.5 mg Given 11/02/2023 9:21 AM CDT 12.5 mg metoprolol tartrate (LOPRESSOR) immediate release tablet 25 mg 25 mg, oral, Every 12 hours, First dose (after last modification) on Mon10/16/23 at 0130, Hold for HR less than 60 Given 10/16/2023 12:23 PM BUILDING ADMIN 25 mg metoprolol tartrate (LOPRESSOR) immediate release tablet 50 mg 50 mg, oral, Every 12 hours, First dose on 10/14/23 at 0130 Given 10/14/2023 2:59 PM BUILDING ADMIN 50 mg Given 10/14/2023 2:17 AM BUILDING ADMIN 50 mg NIFEdipine (PROCARDIA XL/ADALAT CC) extended release tablet 90 mg 90 mg, oral, Daily, First dose on 10/14/23 at 0900, Do not crush, chew, cut, dissolve, open or otherwise manipulate tablet/capsule. Given 10/16/2023 8:19 AM BUILDING ADMIN 90 mg Given 10/15/2023 12:21 PM BUILDING ADMIN 90 mg Given 10/14/2023 8:44 AM BUILDING ADMIN 90 mg norepinephrine in dextrose 5% (LEVOPHED) 8,000 mcg/250 mL (32 mcg/mL) infusion (premix) 0-2 mcg/kg/min ? 126.2 kg (0-473.25 mL/hr), 32 mcg/mL, intravenous, Titrated, Starting on Mon10/17/23 at 1400, Until Mon10/18/23 at 1204, Indications: hypotension, Initial rate: 0.05 mcg/kg/min, Titrate: Up/Down, Titrate by: 0.01 mcg/kg/min, Every: 2 minutes, Goal: MAP, MAP Goal: 65-75 mmHg, Discontinue when drip is off and stable at goal. , RoutineIndications:hypo tension Rate/Dose Verify 10/18/2023 10:00 AM BUILDING ADMIN 0.01 mcg/kg/min 2.37 mL/hr Rate/Dose Change 10/18/2023 8:01 AM BUILDING ADMIN 0.01 mcg/kg/min 2. 37 mL/hr Rate/Dose Change 10/18/2023 6:00 AM BUILDING ADMIN 0.02 mcg/kg/min 4. 73 mL/hr ondansetron (ZOFRAN) injection 4 mg 4 mg, intravenous, Administer over 2 Minutes, Every 6 hours PRN, nausea, vomiting, Starting on Mon10/17/23 at 1324, Administer no sooner than 6 hours after last dose. , Indications: Nausea and VomitingIndications:Nausea and Vomiting Given 10/25/2023 9:13 AM BUILDING ADMIN 4 mg Given 10/19/2023 5:21 PM BUILDING ADMIN 4 mg Given 10/19/2023 10:48 AM BUILDING ADMIN 4 mg oxyCODONE (ROXICODONE) tablet 2.5 mg 2.5 mg, oral, Once, On Mon10/20/23 at 0115, For 1 dose, Indications: PainIndications:Pain Given 10/20/2023 12:37 AM BUILDING ADMIN 2.5 mg oxyCODONE (ROXICODONE) tablet 5 mg 5 mg, oral, Every 3 hours PRN, 1st line for pain, Starting on Mon10/17/23 at 1324, May repeat in 1 hour if pain is uncontrolled or increasing. Max 2 doses within 1 dosing interval. Given 10/18/2023 3:58 PM BUILDING ADMIN 5 mg Given 10/18/2023 10:52 AM BUILDING ADMIN 5 mg Given 10/18/2023 7:13 AM BUILDING ADMIN [address] (PROTONIX) extended release tablet 40 mg 40 mg, oral, Daily, First dose on Mon10/14/23 at 0900, Do not crush, chew, cut, dissolve, open or otherwise manipulate tablet/capsule., Indications: Treatment of Non-Bleeding Gastric DisorderIndications:Treatment of Non-Bleeding Gastric Disorder Given 10/16/2023 8:19 AM BUILDING ADMIN 40 mg Given 10/15/2023 8:41 AM BUILDING ADMIN 40 mg Given 10/14/2023 8:44 AM BUILDING ADMIN [address] (PROTONIX) extended release tablet 40 mg 40 mg, oral, Daily, First dose on Mon10/18/23 at 0900, Do not crush, chew, cut, dissolve, open or otherwise manipulate tablet/capsule., Indications: Stress Ulcer ProphylaxisIndications:Stress Ulcer Prophylaxis Given 11/03/2023 8:39 AM CDT 40 mg Given 11/02/2023 9:22 AM CDT 40 mg Given 11/01/2023 8:22 AM CDT 40 mg perflutren protein-a (OPTISON) 3 mL in sodium chloride 0.9% 8 mL syringe 1-8 mL, intravenous, Once in imaging, contrast, Starting on Mon10/16/23 at 1412, For 1 dose, Intra-Procedure (CV) Contrast Given 10/16/2023 4:47 PM CS T 6 mL polyethylene glycol (MIRALAX) packet 17 g 17 g, oral, Daily PRN, constipation, Starting on 10/14/23 at 1726, Indications: constipationIndications:constipation Given 10/15/2023 8:49 AM BUILDING ADMIN 17 g Given 10/14/2023 5:33 PM BUILDING ADMIN 17 g polyethylene glycol (MIRALAX) packet 17 g 17 g, oral, Daily, First dose (after last modification) on Mon10/20/23 at 1045, Hold for diarrhea, Indications: constipationIndications:constipation Given 10/30/2023 8:15 AM CDT 17 g Given 10/29/2023 8:19 AM CDT 17 g Given 10/22/2023 8:13 AM BUILDING ADMIN 17 g potassium chloride ER (KLOR-CON) extended release tablet 20 mEq 20 mEq, oral, Every 4 hours PRN, potassium level 3-8 to 4.4 mmol/L, Starting on Mon10/17/23 at 1324, If able to swallow tablets/capsules. Discuss with provider before administering if creatinine equal to or greater than 1.8 mg/dL, urine output less than 20 ml/hr, and/or patient on renal replacement therapy (CRRT, hemodialysis). Do not crush, chew, cut, dissolve, open or otherwise manipulate tablet/capsule., Indications: hypokalemiaIndications:hy pokalemia potassium chloride ER (KLOR-CON) extended release tablet 40 mEq 40 mEq, oral, Every 4 hours PRN, potassium level 3.7 mmol/L or less, Starting on Mon10/17/23 at 1324, If able to swallow tablets/capsules. Discuss with provider before administering if creatinine equal to or greater than 1.8 mg/dL, urine output less than 20 ml/hr, and/or patient on renal replacement therapy (CRRT, hemodialysis). Do not crush, chew, cut, dissolve, open or otherwise manipulate tablet/capsule., Indications: hypokalemiaIndications:hy pokalemia Given 11/03/2023 5:30 AM CDT 40 mEq propofol (DIPRIVAN) 10 mg/mL infusion 0-50 mcg/kg/min ? 126.2 kg (0-37.86 mL/hr), 10 mg/mL, intravenous, Continuous, Starting on Mon10/17/23 at 1400, Until Mon10/18/23 at 0754, Titration instructions: Titrate, Initial dose: 10 mcg/kg/min, Titrate: Up/Down, Titrate by: 10 mcg/kg/min, Every: 5 minutes, Goal: RASS, RASS Goal: -1, -2, Discontinue when patient extubated. Room temperature only, Routine Rate/Dose Verify 10/18/2023 6:00 AM BUILDING ADMIN 25 mcg/kg/min 18.93 mL/hr Rate/Dose Verify 10/18/2023 5:00 AM BUILDING ADMIN 25 mcg/kg/min 18.9 3 mL/hr Rate/Dose Verify 10/18/2023 4:00 AM BUILDING ADMIN 25 mcg/kg/min 18.9 3 mL/hr protamine 50 mg in sodium chloride 0.9% 50 mL IVPB 50 mg, intravenous, at 110 mL/hr, Administer over 30 Minutes, Once, On Mon10/17/23 at 1730, For 1 dose, Rate not to exceed 50 mg over 10 minutes, Indications: Heparin ToxicityIndications:Heparin Toxicity New Bag 10/17/2023 5:15 PM BUILDING ADMIN 50 m g 110 mL/hr ramelteon (ROZEREM) tablet 8 mg 8 mg, oral, Nightly PRN, sleep, Starting on Mon10/13/23 at 2332, Indications: Sleep-Onset InsomniaIndications:Sleep-Onset Insomnia Given 11/02/2023 8:24 PM CDT 8 mg Given 10/26/2023 10:57 PM BUILDING ADMIN 8 mg Given 10/25/2023 9:05 PM BUILDING ADMIN 8 mg ranolazine ER (RANEXA) extended release tablet 500 mg 500 mg, oral, 2 times daily, First dose on Mon10/14/23 at 0130 Given 10/16/2023 9:42 PM BUILDING ADMIN 500 mg Given 10/16/2023 8:18 AM BUILDING ADMIN 500 mg Given 10/15/2023 8:41 AM BUILDING ADMIN 500 mg scopolamine patch 72 hour 1 patch 1 patch, transdermal, Administer over 72 Hours, Once, On Mon10/18/23 at 1945, For 1 dose Medication Applied 10/18/2023 7:28 PM BUILDING ADMIN 1 patch Behind Right Ear senna (SENOKOT) tablet 1 tablet 1 tablet, oral, 2 times daily, First dose on Mon10/18/23 at 0900, If able to swallow medications. Hold for diarrhea., Indications: constipationIndications :constipation Given 11/03/2023 8:38 AM CDT 1 tablet Given 11/02/2023 8:24 PM CDT 1 tablet Given 11/02/2023 9:22 AM CDT 1 tablet sodium chloride 0.9% bolus 500 mL 500 mL, intravenous, Once, On Mon10/14/23 at 0315, For 1 dose New Bag 10/14/2023 2:54 AM BUILDING ADMIN 500 mL sodium chloride 0.9% flush 0.5-20 mL 0.5-20 mL, intra-catheter, Every 8 hours scheduled, First dose on Mon10/14/23 at 0015, Flush volume based on line type and size. Given 10/22/2023 9:19 PM BUILDING ADMIN 10 mL Given 10/22/2023 6:36 PM BUILDING ADMIN 10 mL Given 10/22/2023 8:15 AM BUILDING ADMIN 10 mL sodium chloride 0.9% flush 0.5-20 mL 0.5-20 mL, intra-catheter, Every 8 hours scheduled, First dose on Mon10/17/23 at 1400, Flush volume based on line type and size. , Indications: FlushingIndications:Flushing Given 11/03/2023 1:00 PM CDT 10 mL Given 11/02/2023 8:24 PM CDT 10 mL Given 11/02/2023 1:10 PM CDT 10 mL sodium chloride 0.9% flush 0.5-20 mL 0.5-20 mL, intra-catheter, As needed, line care, Starting on Mon10/17/23 at 1324, Flush volume based on line type and size. Flush before and after each use. , Indications: FlushingIndications:Flushing Given 10/29/2023 10:29 AM CDT 10 mL Given 10/28/2023 12:40 AM BUILDING ADMIN 20 mL Given 10/25/2023 9:14 AM BUILDING ADMIN 10 mL sodium chloride 0.9% infusion 50 mL/hr, intravenous, Continuous, Starting on Mon10/17/23 at 0015, Pre-Op/Floor, Start at midnight the day of surgery. New Bag 10/17/2023 12:45 AM BUILDING ADMIN 50 mL/hr 50 mL/hr sodium chloride 0.9% infusion 10 mL/hr, intravenous, Continuous, Starting on Mon10/17/23 at 1400 New Bag 10/17/2023 2:37 PM BUILDING ADMIN 10 mL/hr 10 mL/hr sodium chloride 0.9% IVPB 0-250 mL 0-250 mL, intravenous, Once, On Mon10/17/23 at 1615, For 1 dose, Prime blood tubing and administer amount needed to clear line (usually 50-100 mL) after transfusion complete. New Bag 10/17/2023 4:35 PM BUILDING ADMIN 250 mL sodium chloride 0.9% IVPB 0-250 mL 0-250 mL, intravenous, Once, On Mon10/17/23 at 1615, For 1 dose, Prime blood tubing and administer amount needed to clear line (usually 50-100 mL) after transfusion complete. New Bag 10/17/2023 4:34 PM BUILDING ADMIN 250 mL sodium chloride 0.9% IVPB 0-250 mL 0-250 mL, intravenous, Once, On Mon10/17/23 at 1745, For 1 dose, Prime blood tubing and administer amount needed to clear line (usually 50-100 mL) after transfusion complete. New Bag 10/17/2023 6:27 PM BUILDING ADMIN 250 mL sodium chloride 0.9% IVPB 0-250 mL 0-250 mL, intravenous, Once, On Mon10/17/23 at 1915, For 1 dose, Prime blood tubing and administer amount needed to clear line (usually 50-100 mL) after transfusion complete. New Bag 10/17/2023 8:00 PM BUILDING ADMIN 50 mL sodium chloride tablet 1 g 1 g, oral, 3 times daily with meals, First dose on Mon10/27/23 at 1030, Each 1 gram tablet contains 17 mEq of sodium., On hold since Mon10/29/2023 at 1130 until manually unheld Given 10/29/2023 8:18 AM CDT 1 g Given 10/28/2023 5:24 PM BUILDING ADMIN 1 g Given 10/28/2023 12:46 PM BUILDING ADMIN 1 g sodium chloride tablet 1 g 1 g, oral, 2 times daily with meals (bkfst, dinner), First dose on Mon10/31/23 at 1130, Each 1 gram tablet contains 17 mEq of sodium. Given 11/03/2023 5:16 PM CDT 1 g Given 11/03/2023 8:38 AM CDT 1 g Given 11/02/2023 5:52 PM CDT 1 g torsemide (DEMADEX) tablet 100 mg 100 mg, oral, Daily, First dose on Mon10/14/23 at 1615 Given 10/16/2023 8:19 AM BUILDING ADMIN 100 mg Given 10/15/2023 8:41 AM BUILDING ADMIN 100 mg Given 10/14/2023 4:40 PM BUILDING ADMIN 100 mg torsemide (DEMADEX) tablet 100 mg 100 mg, oral, Daily, First dose on Mon10/19/23 at 0930 Given 10/21/2023 8:37 AM BUILDING ADMIN 100 mg Given 10/20/2023 9:39 AM BUILDING ADMIN 100 mg Given 10/19/2023 11:05 AM BUILDING ADMIN 100 mg torsemide (DEMADEX) tablet 100 mg 100 mg, oral, 2 times daily (for diuretics), First dose (after last modification) on Mon10/21/23 at 1600 Given 11/03/2023 5:17 PM CDT 100 mg Given 11/03/2023 8:38 AM CDT 100 mg Given 11/02/2023 5:52 PM CDT 100 mg traMADoL (ULTRAM) tablet 50 mg 50 mg, oral, Once, On Mon10/20/23 at 2330, For 1 dose Given 10/20/2023 11:08 PM BUILDING ADMIN 50 mg traMADoL (ULTRAM) tablet 50 mg 50 mg, oral, Once, On Mon10/24/23 at 0000, For 1 dose Given 10/23/2023 11:32 PM BUILDING ADMIN 50 mg traMADoL (ULTRAM) tablet 50 mg 50 mg, oral, Every 8 hours PRN, 1st line for pain, Starting on Mon10/24/23 at 0741 Given 10/27/2023 6:04 AM BUILDING ADMIN 50 mg Given 10/26/2023 10:57 PM BUILDING ADMIN 50 mg Given 10/26/2023 1:32 PM BUILDING ADMIN 50 mg vancomycin 1500 mg/250 mL in sodium chloride 0.9% (premix) 1,500 mg 1,500 mg, intravenous, Administer over 90 Minutes, Once, On Mon10/31/23 at 0830, For 1 dose, Indications: Skin/Soft Tissue InfectionIndications:Skin/ Soft Tissue Infection New Bag 10/31/2023 9:37 AM CDT 1,500 mg vancomycin 1500 mg/250 mL in sodium chloride 0.9% (premix) 1,500 mg 1,500 mg, intravenous, Administer over 90 Minutes, Once, On Gregoria 11/02/23 at 0900, For 1 dose, Indications: Skin/Soft Tissue InfectionIndications:Skin/ Soft Tissue Infection New Bag 11/02/2023 9:28 AM CDT 1,500 mg vancomycin INTERMITTENT dosing per Pharmacy 1 mg, intravenous, at 100 mL/hr, Administer over 60 Minutes, As needed, for INTERMITTENT DOSING PER PHARMACY, Starting on Mon10/31/23 at 0748, FOR INFORMATIONAL PURPOSES ONLY--DO NOT ADMINISTER FROM THIS ORDER, Indications: Skin/Soft Tissue InfectionIndications:Skin/ Soft Tissue Infection vasopressin in 5% dextrose (VASOSTRICT) 20 unit/100 mL (0.2 unit/mL) infusion 0-0.06 Units/min (0-18 mL/hr), 0.2 Units/mL, intravenous, Titrated, Starting on Mon10/17/23 at 2200, Until Mon10/18/23 at 0840, Initial rate: 0.04 units/min, Titrate: Up/Down, Titrate by: 0.01 units/min, Every: 5 minutes, Goal: SBP, SBP Goal: Other (comment) / 100-120, Routine Rate/Dose Verify 10/18/2023 8:00 AM BUILDING ADMIN 0.04 Units/min 12 mL/hr Rate/Dose Verify 10/18/2023 6:00 AM BUILDING ADMIN 0.04 Units/min 12 mL/hr Rate/Dose Verify 10/18/2023 5:00 AM BUILDING ADMIN 0.04 Units/min 12 mL/hr vasopressin in 5% dextrose (VASOSTRICT) 20 unit/100 mL (0.2 unit/mL) infusion 0.04 Units/min (12 mL/hr), 0.2 Units/mL, intravenous, Titrated, Starting on Mon10/18/23 at 0915, Until Mon10/18/23 at 1204, Initial rate: Do not titrate, Routine Rate/Dose Verify 10/18/2023 10:00 AM BUILDING ADMIN 0.04 Units/min 12 mL/hr Rate/Dose Verify 10/18/2023 8:58 AM BUILDING ADMIN 0.04 Units/min 12 mL/hr vasopressin in 5% dextrose (VASOSTRICT) 20 unit/100 mL (0.2 unit/mL) infusion 0-0.04 Units/min (0-12 mL/hr), 0.2 Units/mL, intravenous, Titrated, Starting on Mon10/18/23 at 1245, Until Gregoria 10/19/23 at 0541, Initial rate: 0.04 units/min, Titrate: Up/Down, Titrate by: 0.01 units/min, Every: 5 minutes, Goal: SBP, SBP Goal: 110-130 mmHg, Routine Rate/Dose Change 10/18/2023 1:20 PM BUILDING ADMIN 0.01 Units/min 3 mL/hr Rate/Dose Change 10/18/2023 12:30 PM BUILDING ADMIN 0.02 Units/min 6 mL/hr New Bag 10/18/2023 12:15 PM BUILDING ADMIN 0.03 Units/min 9 mL/hr warfarin (COUMADIN) tablet 0.5 mg 0.5 mg, oral, Once (for warfarin), On Mon10/20/23 at 1800, For 1 dose, Target INR: 2 - 2.5, Indications: Mechanical Valve Thromboembolism ProphylaxisIndications:Mechanical Valve Thromboembolism Prophylaxis Given 10/20/2023 5:25 PM BUILDING ADMIN 0.5 mg warfarin (COUMADIN) tablet 1 mg 1 mg, oral, Once (for warfarin), On Mon10/28/23 at 1800, For 1 dose, Target INR: 2 - 2.5, Indications: Mechanical Valve Thromboembolism ProphylaxisIndications:Mechanical Valve Thromboembolism Prophylaxis Given 10/28/2023 5:24 PM BUILDING ADMIN 1 mg warfarin (COUMADIN) tablet 1.5 mg 1.5 mg, oral, Once (for warfarin), On Mon10/23/23 at 1800, For 1 dose, Target INR: 2 - 2.5, Indications: Mechanical Valve Thromboembolism ProphylaxisIndications:Mechanical Valve Thromboembolism Prophylaxis Given 10/23/2023 5:10 PM BUILDING ADMIN 1.5 mg warfarin (COUMADIN) tablet 1.5 mg 1.5 mg, oral, Once (for warfarin), On Mon10/24/23 at 1800, For 1 dose, Target INR: 2 - 2.5, Indications: Mechanical Valve Thromboembolism ProphylaxisIndications:Mechanical Valve Thromboembolism Prophylaxis Given 10/24/2023 5:48 PM BUILDING ADMIN 1.5 mg warfarin (COUMADIN) tablet 1.5 mg 1.5 mg, oral, Once (for warfarin), On Mon10/25/23 at 1800, For 1 dose, Target INR: 2 - 2.5, Indications: Mechanical Valve Thromboembolism ProphylaxisIndications:Mechanical Valve Thromboembolism Prophylaxis Given 10/25/2023 5:36 PM BUILDING ADMIN 1.5 mg warfarin (COUMADIN) tablet 1.5 mg 1.5 mg, oral, Once (for warfarin), On Mon10/27/23 at 1800, For 1 dose, Target INR: 2 - 2.5, Indications: Mechanical Valve Thromboembolism ProphylaxisIndications:Mechanical Valve Thromboembolism Prophylaxis Given 10/27/2023 5:49 PM BUILDING ADMIN 1.5 mg warfarin (COUMADIN) tablet 2 mg 2 mg, oral, Once (for warfarin), On Mon10/29/23 at 1800, For 1 dose, Target INR: 2 - 2.5, Indications: Mechanical Valve Thromboembolism ProphylaxisIndications:Mechanical Valve Thromboembolism Prophylaxis Given 10/29/2023 5:06 PM CDT 2 mg warfarin (COUMADIN) tablet 2 mg 2 mg, oral, Once (for warfarin), On Mon10/30/23 at 1800, For 1 dose, Target INR: 2 - 2.5, Indications: Mechanical Valve Thromboembolism ProphylaxisIndications:Mechanical Valve Thromboembolism Prophylaxis Given 10/30/2023 5:31 PM CDT 2 mg warfarin (COUMADIN) tablet 2 mg 2 mg, oral, Once (for warfarin), On Mon10/31/23 at 1800, For 1 dose, Target INR: 2 - 2.5, Indications: Mechanical Valve Thromboembolism ProphylaxisIndications:Mechanical Valve Thromboembolism Prophylaxis Given 10/31/2023 5:07 PM CDT 2 mg warfarin (COUMADIN) tablet 2.5 mg 2.5 mg, oral, Once (for warfarin), On Mon11/01/23 at 1800, For 1 dose, Target INR: 2 - 2.5, Indications: Mechanical Valve Thromboembolism ProphylaxisIndications:Mechanical Valve Thromboembolism Prophylaxis Given 11/01/2023 5:17 PM CDT 2.5 mg warfarin (COUMADIN) tablet 3 mg 3 mg, oral, Once (for warfarin), On Mon10/18/23 at 1800, For 1 dose, Target INR: 2 - 2.5, Indications: Mechanical Valve Thromboembolism ProphylaxisIndications:Mechanical Valve Thromboembolism Prophylaxis Given 10/18/2023 6:13 PM BUILDING ADMIN 3 mg warfarin (COUMADIN) tablet 3 mg 3 mg, oral, Once (for warfarin), On Gregoria 10/19/23 at 1800, For 1 dose, Target INR: 2 - 2.5, Indications: Mechanical Valve Thromboembolism ProphylaxisIndications:Mechanical Valve Thromboembolism Prophylaxis Given 10/19/2023 5:21 PM BUILDING ADMIN 3 mg warfarin (COUMADIN) tablet 3 mg 3 mg, oral, Once (for warfarin), On Gregoria 10/26/23 at 1800, For 1 dose, Target INR: 2 - 2.5, Indications: Mechanical Valve Thromboembolism ProphylaxisIndications:Mechanical Valve Thromboembolism Prophylaxis Given 10/26/2023 6:03 PM BUILDING ADMIN 3 mg warfarin (COUMADIN) tablet 4 mg 4 mg, oral, Once (for warfarin), On Gregoria 11/02/23 at 1800, For 1 dose, Target INR: 2 - 2.5, Indications: Mechanical Valve Thromboembolism ProphylaxisIndications:Mechanical Valve Thromboembolism Prophylaxis Given 11/02/2023 5:52 PM CDT 4 mg warfarin (COUMADIN) tablet 4 mg 4 mg, oral, Once (for warfarin), On Mon11/03/23 at 1800, For 1 dose, Target INR: 2 - 2.5, Indications: Mechanical Valve Thromboembolism ProphylaxisIndications:Mechanical Valve Thromboembolism Prophylaxis Given 11/03/2023 5:16 PM CDT 4 mg documented in this encounter Discontinued Medications Medication Sig Discontinue Reason Start Date End Da te isosorbide mononitrate ER (IMDUR) 30 mg 24 hr tablet TAKE 1 TABLET BY MOUTH EVERY DAY Stop Taking at Discharge 12/24/2018 11/03/2023 clopidogrel (PLAVIX) 75 mg tablet TAKE 1 TABLET BY MOUTH DAILY Stop Taking at Discharge 01/28/2019 11/03/2023 metoprolol (LOPRESSOR) 100 mg tablet Take 1 tablet (100 mg total) by mouth every 12 (twelve) hours Stop Taking at Discharge 11/03/2023 acetaminophen 500 mg capsule Take 2 capsules (1,000 mg total) by mouth every 6 (six) hours as needed for pain Stop Taking at Discharge 06/29/2022 11/03/2023 losartan (COZAAR) 25 mg tablet Take 0.5 tablets (12.5 mg total) by mouth daily Stop Taking at Discharge 06/30/2022 11/03/2023 NIFEdipine (NIFEdipine XL) 90 mg 24 hr tablet Take 1 tablet (90 mg total) by mouth daily Stop Taking at Discharge 11/03/2023 potassium chloride ER 10 mEq CR tablet Take 2 tablet/capsule (20 mEq total) by mouth nightly Stop Taking at Discharge 11/03/2023 ranolazine ER (RANEXA) 500 mg 12 hr tablet Take 1 tablet (500 mg total) by mouth 2 (two) times a day Stop Taking at Discharge 11/03/2023 documented as of this encounter Historical Medications * This list may reflect changes made after this encounter. icosapent ethyL (VASCEPA) 1 gram capsuleIndicatio ns:hypertriglyce ridemia Take 2 capsules (2 g total) by mouth 2 (two) times a day colchicine (COLCRYS) 0.6 mg tabletIndication s:prevention of acute gout attack Take 1 tablet (0.6 mg total) by mouth 3 (three) times a week Monday, Monday, Monday gemfibroziL (LOPID) 600 mg tabletIndication s:hypertriglycer idemia Take 1 tablet (600 mg total) by mouth 2 (two) times a day before breakfast and lunch famotidine (PEPCID) 40 mg tabletIndication s:gastroesophage al reflux disease,Heartbur n Prevention Take 0.5 tablets (20 mg total) by mouth nightly ranolazine ER (RANEXA) 500 mg 12 hr tablet Take 1 tablet (500 mg total) by mouth 2 (two) times a day potassium chloride ER 10 mEq CR tablet Take 2 tablet/capsule (20 mEq total) by mouth nightly 4 NIFEdipine (NIFEdipine XL) 90 mg 24 hr tablet Take 1 tablet (90 mg total) by mouth daily 4 added in this encounter Active and Recently Administered Medications Times are shown in CDT. Scheduled Medication Order 11/01/2023 11/02/2023 11/03/2023 al & mag hydroxide simethicone-diphenhydrami [id number]-jvoezduw (MAGIC MOUTHWASH) oral suspension 1-1-1-1 20 mL 20 mL, swish & swallow, Every 6 hours, First dose on Gregoria 10/26/23 at 1400 0203 (Given - Provider: Kezia Palmer, LUAN)0823 (Given - Provider: Yamilet Hay RN)1412 (Given - Provider: Yamilet Hay RN)2027 (Given - Provider: Kezia Palmer RN) 0214 (Given - Provider: Kezia Palmer RN)0924 (Given - Provider: Jessica Rodriguez RN)1310 (Given - Provider: Jessica Rodriguez RN)2023 (Given - Provider: Abelardo Brar, LUAN) 0146 (Not Given - Provider: Abelardo Brar RN - Reason: Other)0838 (Given - Provider: Jessica Rodriguez RN)1300 (Given - Provider: Jessica Rodriguez, LUAN) amiodarone (PACERONE) tablet 200 mg 200 mg, oral, Daily, First dose (after last modification) on 10/28/23 at 0900 0822 (Given - Provider: Yamilet Hay RN) 0922 (Given - Provider: Jessica Rodriguez RN) 0838 (Given - Provider: Jessica Rodriguez, LAUN) aspirin chewable tablet 81 mg(Linked Group 1) 81 mg, oral, Daily, First dose (after last modification) on 10/18/23 at 0915, If able to swallow medications. Within 6h of arrival to CVR if chest tube output allows. 0822 (Given - Provider: Yamilet Hay RN) 0922 (Given - Provider: Jessica Rodriguez RN) 0838 (Given - Provider: Jessica Rodriguez RN) atorvastatin (LIPITOR) tablet 80 mg 80 mg, oral, Daily, First dose on Mon10/14/23 at 0900 0822 (Given - Provider: Yamilet Hay RN) 0922 (Given - Provider: Jessica Rodriguez RN) 0838 (Given - Provider: Jessica Rodriguez RN) calcitRIOL (ROCALTROL) capsule 0.25 mcg 0.25 mcg, oral, Daily, First dose on Mon10/14/23 at 0900 0822 (Given - Provider: Yamilet Hay RN) 0922 (Given - Provider: Jessica Rodriguez RN) 0838 (Given - Provider: Jessica Rodriguez RN) calcium acetate(phosphat bind) (PHOSLO) capsule 1,334 mg 1,334 mg, oral, 3 times daily with meals, First dose (after last modification) on Mon10/20/23 at 0800, Take with food 0822 (Given - Provider: Yamilet Hay RN)1218 (Given - Provider: Yamilet Hay RN)1717 (Given - Provider: Yamilet Hay RN) 0922 (Given - Provider: Jessica Rodriguez RN)1310 (Given - Provider: Jessica Rodriguez RN)1752 (Given - Provider: Jessica Rodriguez RN) 0838 (Given - Provider: Jessica Rodriguez RN)1138 (Given - Provider: Jessica Rodriguez RN)1717 (Given - Provider: Jessica Rodriguez RN) ceFAZolin (ANCEF) 1 gram/10 mL in sterile water (premix) 1,000 mg 1,000 mg, intravenous, at 200 mL/hr, Administer over 3 Minutes, Every 24 hours scheduled, First dose on Mon10/29/23 at 1030, Indications: Skin/Soft Tissue Infection 0955 (Given - Provider: Yamilet Hay RN) 0928 (Given - Provider: Jessica Rodriguez RN) 0846 (Given - Provider: Jessica Rodriguez RN) docusate sodium (COLACE) capsule 100 mg(Linked Group 2) 100 mg, oral, 2 times daily, First dose on Mon10/17/23 at 1400, If able to swallow medications. Hold for diarrhea. , Indications: constipation 821 (Given - Provider: Yamilet Hay RN)2027 (Given - Provider: Kezia Palmer RN) 921 (Given - Provider: Jessica Rodriguez, RN)2023 (Given - Provider: Abelardo Brar RN) 08 (Given - Provider: Jessica Rodriguez, RN) epoetin genia-epbx (RETACRIT) (10,000 unit/mL) injection 10,000 Units 10,000 Units, subcutaneous, Weekly (for epoetins), First dose on Mon10/20/23 at 2100, Refrigerate, Indications: ESRD on Dialysis ezetimibe (ZETIA) tablet 10 mg 10 mg, oral, Daily, First dose on 10/14/23 at 0900 08 (Given - Provider: Yamilet Hay RN) 921 (Given - Provider: Jessica Rodriguez, LUAN) 08 (Given - Provider: Jessica Rodriguez, RN) gentamicin (GARAMYCIN) 0.1 % cream topical, Daily, First dose on Gregoria 10/19/23 at 0900, Apply to peritoneal dialysis catheter exit site daily during dressing change. DO NOT SUBSTITUTE WITH OINTMENT., Apply to affected area: dialysis access site, Indications: Infection Prophylaxis 1716 (Given - Provider: Yamilet Hay RN)2125 (Given - Provider: Irma Connelly, LUAN) 2002 (Given - Provider: Jackie Masters, LUAN) 1831 (Not Given - Provider: Jessica Rodriguez, RN - Reason: Other - Comment: pt not receiving PD here tonight, discharging home; cream given to pt for use at home with PD) insulin lispro (HumaLOG, ADMELOG) 100 unit/mL injection 0-10 Units 0-10 Units, subcutaneous, 4 times daily (with meals and nightly), First dose (after last modification) on 10/21/23 at 1800, Blood glucose mg/dL: 149 or less: No insulin 150-199: add 2 unit 200-249: add 4 units 250-299: add 6 units 300-349: add 8 units 350-399: add 10 units Over 400: Notify physician for adjustment of insulin orders. Do NOT hold for NPO Status, Indications: Diabetes Mellitus, On hold since Mon10/23/2023 at 1051 until manually unheld 0800 (Dose Auto Held)1200 (Dose Auto Held)1800 (Dose Auto Held)2100 (Dose Auto Held) 0800 (Hold - Provider: Jessica Rodriguez, RN - Reason: See Provider Order)1200 (Hold - Provider: Jessica Rodriguez, RN - Reason: See Provider Order)1800 (Hold - Provider: Jessica Rodriguez, RN - Reason: See Provider Order)2100 (Dose Auto Held) 0800 (Hold - Provider: Jessica Rodriguez, RN - Reason: See Provider Order)1200 (Hold - Provider: Jessica Rodriguez, RN - Reason: See Provider Order)1800 (Hold - Provider: Jessica Rodriguez, RN - Reason: See Provider Order)2337 (Unheld by Provider - Provider: Automatic Discharge Provider) insulin lispro (HumaLOG, ADMELOG) 100 unit/mL injection 4 Units 4 Units, subcutaneous, 3 times daily with meals, First dose (after last modification) on Mon10/23/23 at 0800, If BG greater than or equal to 100 mg/dL, give dose with meals when tray arrives in the room. If BG less than 100 mg/dL or history of poor intake, give after meals. If patient eating less than 50% of meal, call MD for holding or reducing meal insulin dose. Hold prandial insulin if NPO, unable to eat, or if BG less than 70 mg/dL., Indications: Diabetes Mellitus, On hold since Mon10/23/2023 at 1051 until manually unheld 0800 (Dose Auto Held)1200 (Dose Auto Held)1800 (Dose Auto Held) 0800 (Hold - Provider: Jessica Rodriguez, RN - Reason: See Provider Order)1200 (Hold - Provider: Jessica Rodriguez, RN - Reason: See Provider Order)1800 (Hold - Provider: Jessica Rodriguez, RN - Reason: See Provider Order) 0800 (Hold - Provider: Jessica Rodriguez, RN - Reason: See Provider Order)1200 (Hold - Provider: Jessica Rodriguez, RN - Reason: See Provider Order)1800 (Hold - Provider: Jessica Rodriguez, RN - Reason: See Provider Order)2337 (Unheld by Provider - Provider: Automatic Discharge Provider) insulin NPH (HumuLIN N, NovoLIN N) 100 unit/mL injection 15 Units 15 Units, subcutaneous, Daily, First dose (after last modification) on Mon10/23/23 at 0900, Reason for prescribing NPH: basal, Indications: Diabetes Mellitus, On hold since Mon10/23/2023 at 1051 until manually unheld 0900 (Dose Auto Held) 0900 (Hold - Provider: Jessica Rodriguez RN - Reason: See Provider Order) 0900 (Hold - Provider: Jessica Rodriguez RN - Reason: See Provider Order)2337 (Unheld by Provider - Provider: Automatic Discharge Provider) insulin NPH (HumuLIN N, NovoLIN N) 100 unit/mL injection 35 Units 35 Units, subcutaneous, Nightly, First dose (after last modification) on Mon10/23/23 at 2200, At 10 PM with PD at [place]. Hold if no PD planned., Reason for prescribing NPH: peritoneal dialysis, Indications: Diabetes Mellitus, On hold since Mon10/23/2023 at 1051 until manually unheld 2200 (Dose Auto Held) 2200 (Dose Auto Held) 2337 (Unheld by Provider - Provider: Automatic Discharge Provider) levothyroxine (SYNTHROID) tablet 25 mcg 25 mcg, oral, Daily (early AM), First dose on Mon10/29/23 at 0600, Administer on an empty stomach, preferably 30 minutes before breakfast. Take 4 hours apart from antacids, iron and calcium products. Separate from tube feeds, if applicable. 0547 (Given - Provider: Kezia Palmer RN) 0622 (Given - Provider: Kezia Palmer RN) 05 (Given - Provider: Abelardo Brar, LUAN) metoprolol tartrate (LOPRESSOR) immediate release tablet 12.5 mg 12.5 mg, oral, 2 times daily, First dose (after last modification) on Mon10/22/23 at 2100 0822 (Given - Provider: Yamilet Hay RN)2027 (Given - Provider: Kezia Palmer RN) 09 (Given - Provider: Jessica Rodriguez, LUAN)2022 (Given - Provider: Abelardo Brar, LUAN) 08 (Given - Provider: Jessica Rodriguez, LUAN) pantoprazole DR (PROTONIX) extended release tablet 40 mg 40 mg, oral, Daily, First dose on Mon10/18/23 at 0900, Do not crush, chew, cut, dissolve, open or otherwise manipulate tablet/capsule., Indications: Stress Ulcer Prophylaxis 0822 (Given - Provider: Yamilet Hay RN) 09 (Given - Provider: Jessica Rodriguez RN) 0839 (Given - Provider: Jessica Rodriguez RN) polyethylene glycol (MIRALAX) packet 17 g 17 g, oral, Daily, First dose (after last modification) on Mon10/20/23 at 1045, Hold for diarrhea, Indications: constipation 0823 (Not Given - Provider: Yamilet Hay RN - Reason: Order parameters not met) 0921 (Not Given - Provider: Jessica Rodriguez RN - Reason: Patient/family refused) 0838 (Not Given - Provider: Jessica Rodriguez RN - Reason: Patient/family refused) senna (SENOKOT) tablet 1 tablet(Linked Group 3) 1 tablet, oral, 2 times daily, First dose on Mon10/18/23 at 0900, If able to swallow medications. Hold for diarrhea., Indications: constipation 0822 (Given - Provider: Yamilet Hay RN)2027 (Given - Provider: Kezia Palmer RN) 09 (Given - Provider: Jessica Rodriguez, LUAN)202 (Given - Provider: Abelardo Brar, LUAN) 0838 (Given - Provider: Jessica Rodriguez RN) sodium chloride 0.9% flush 0.5-20 mL 0.5-20 mL, intra-catheter, Every 8 hours scheduled, First dose on Mon10/17/23 at 1400, Flush volume based on line type and size. , Indications: Flushing 0547 (Given - Provider: Kezia Palmer, LUAN)1430 (Given - Provider: Yamilet Hay RN)2029 (Given - Provider: Kezia Palmer, LUAN) 0624 (Given - Provider: Kezia Palmer RN)1310 (Given - Provider: Jessica Rodriguez, LUAN)202 (Given - Provider: Abelardo Brar, LUAN) 0538 (Not Given - Provider: Abelardo Brar RN - Reason: Other)1300 (Given - Provider: Jessica Rodriguez RN) sodium chloride tablet 1 g 1 g, oral, 2 times daily with meals (bkfst, dinner), First dose on Mon10/31/23 at 1130, Each 1 gram tablet contains 17 mEq of sodium. 0822 (Given - Provider: Yamilet Hay RN)1717 (Given - Provider: Yamilet Hay RN) 0922 (Given - Provider: Jessica Rodriguez, LUAN)175 (Given - Provider: Jessica Rodriguez RN) 0838 (Given - Provider: Jessica Rodriguez RN)171 (Given - Provider: Jessica Rodriguez RN) torsemide (DEMADEX) tablet 100 mg 100 mg, oral, 2 times daily (for diuretics), First dose (after last modification) on Mon10/21/23 at 1600 0821 (Given - Provider: Yamilet Hay RN)1544 (Given - Provider: Yamilet Hay RN) 0922 (Given - Provider: Jessica Rodriguez, LUAN)175 (Given - Provider: Jessica Rodriguez RN) 0838 (Given - Provider: Jessica Rodriguez RN)171 (Given - Provider: Jessica Rodriguez, LUAN) vancomycin 1500 mg/250 mL in sodium chloride 0.9% (premix) 1,500 mg (COMPLETED) 1,500 mg, intravenous, Administer over 90 Minutes, Once, On Mon11/02/23 at 0900, For 1 dose, Indications: Skin/Soft Tissue Infection 0928 (New Bag - Provider: Jessica Rodriguez, LUAN) warfarin (COUMADIN) tablet 2.5 mg (COMPLETED) 2.5 mg, oral, Once (for warfarin), On Mon11/01/23 at 1800, For 1 dose, Target INR: 2 - 2.5, Indications: Mechanical Valve Thromboembolism Prophylaxis 1716 (Given - Provider: Yamilet Hay RN) warfarin (COUMADIN) tablet 4 mg (COMPLETED) 4 mg, oral, Once (for warfarin), On Mon11/02/23 at 1800, For 1 dose, Target INR: 2 - 2.5, Indications: Mechanical Valve Thromboembolism Prophylaxis 1751 (Given - Provider: Jessica Rodriguez, LUAN) warfarin (COUMADIN) tablet 4 mg (COMPLETED) 4 mg, oral, Once (for warfarin), On Mon11/03/23 at 1800, For 1 dose, Target INR: 2 - 2.5, Indications: Mechanical Valve Thromboembolism Prophylaxis 1716 (Given - Provider: Jessica Rodriguez RN) Continuous Medication Order 11/01/2023 11/02/2023 11/03/2023 Dianeal low calcium-dextrose 2.5 % 6,000 mL with heparin 3,000 Units dialysis solution intraperitoneal, Continuous, Starting on 10/21/23 at 1800, For 563 hours, CCPD bag number: 2, Indications: Peritoneal Dialysis 2124 (New Bag - Provider: Irma Connelly RN) 2000 (New Bag - Provider: Jackie Masters, LUAN) 2336 (Due: Stopped) Dianeal low calcium-dextrose 4.25 % 6,000 mL with heparin 3,000 Units dialysis solution intraperitoneal, Continuous, Starting on 10/29/23 at 1800, For 379 hours, CCPD bag number: 1, Indications: Peritoneal Dialysis 2124 (New Bag - Provider: Irma Connelly RN) 2000 (New Bag - Provider: Jackie Masters RN) 2336 (Due: Stopped) Extraneal 7.5% AMBU-FLEX 2,500 mL with heparin 1,250 Units dialysis solution intraperitoneal, Continuous, Starting on 10/21/23 at 1800, For 563 hours, CCPD bag number: 3, Indications: Peritoneal Dialysis 2124 (New Bag - Provider: Irma Connelly RN) 2000 (New Bag - Provider: Jackie Masters RN) 2336 (Due: Stopped) heparin in 0.45% sodium chloride 25,000 units/250 mL (100 units/mL) infusion (premix) 0-33 Units/kg/hr ? 124.1 kg (0-40.953 mL/hr, rounded to 0-40.95 mL/hr), intravenous, Titrated, Starting on Gregoria 11/02/23 at 1300, WEIGHT-BASED HEPARIN INFUSION Initial dose:: 8 Units/kg/hr. Max initial dose: 1,000 units/hr. Adjust infusion based upon nomogram: PTT less than 46 seconds:? Bolus if ordered (see PRN bolus order) , then increase infusion dose 3 units/kg/hour PTT 46 - 55 seconds:? Bolus if ordered (see PRN bolus order), then increase infusion dose 2 units/kg/hour PTT 56 - 65 seconds:? Increase infusion dose 1 unit/kg/hour PTT 66 - 100 seconds:? No??change PTT 101 - 110 seconds:? Decrease infusion dose 1 unit/kg/hour PTT 111 - 120 seconds:? Hold infusion for 30 minutes, then decrease infusion dose 2 units/kg/hour PTT greater than 120 seconds:?Hold infusion for 1 hour, then decreaseinfusion dose 3 units/kg/hour Draw STAT PTT 6 hrs after initiation of heparin infusion, draw STAT PTT 6 hours after each dose change, and every 6 hours until 2 consecutive PTTs are within therapeutic range. Once two consecutive PTT's are therapeutic (66-100 seconds), then draw PTT every AM until heparin is discontinued., Indications: atrial fibrillation 1406 (New Bag - Provider: Jessica Rodriguez RN - Comment: initial dose)1412 (Canceled Entry - Provider: Jessica Rodriguez RN)2219 (New Bag - Provider: Abelardo Brar RN) 0534 (New Bag - Provider: Abelardo Brar, RN)0915 (New Bag - Provider: Jessica Rodriguez, RN)1257 (Rate/Dose Change - Provider: Jessica Rodriguez RN - Comment: aPTT 62)1453 (Stopped - Provider: Jessica Rodriguez RN) INSULIN SUBCUTANEOUS PUMP insulin lispro (HumaLOG) 100 UNIT/ML patient supplied pump 0-25 Units (CANCELED) 0-25 Units, subcutaneous, Continuous, Starting on Mon10/31/23 at 1745, Current pump settings will remain until a member of the Endocrine team, Maternal- Medicine (if applicable), or designee evaluates the patient and/or adjusts the pump settings., Attestation: Possesses no safety concerns (eg. diagnosis of DKA/HHS, admit to ICU, risk of self harm), Attestation: Possesses visual acuity and fine motor skills to operate pump, Attestation: Alert and oriented x 4, Attestation: Verbalizes desire to remain on insulin pump during hospitalization and understands insulin pump agreement, Insulin Pump: Insulin Pump Settings, Insulin Pump Settings: Basal Rate, Carbohydrate Ratio, High Glucose Correction, Basal Rate (units/hr): 5.5, From (hh:mm): 1:00 AM, To (hh:mm): 8:00 AM, Basal Rate (units/hr): 3.2, From (hh:mm): 8:00 AM, To (hh:mm): 8:00 AM, Basal Rate (units/hr): 5.5, From (hh:mm): 8:00 PM, To (hh:mm): 12:00 AM, Carbohydrate Ratio: 1 unit per how many gm carbohydrate: 5, From: (hh:mm): 1:00 AM, To:(hh:mm): 1:00 PM, High Glucose Correction: 1 unit per how many mg/dL over target: 15, From:(hh:mm): 1:00 AM, To:(hh:mm): 1:00 PM, Choose Target (mg/dL): 120, Indications: Diabetes Mellitus 0830 (Self Administered Via Pump - Provider: Yamilet Hay RN) INSULIN SUBCUTANEOUS PUMP insulin lispro (HumaLOG) 100 UNIT/ML patient supplied pump 0-25 Units 0-25 Units, subcutaneous, Continuous, Starting on Mon11/01/23 at 1200, Current pump settings will remain until a member of the Endocrine team, Maternal- Medicine (if applicable), or designee evaluates the patient and/or adjusts the pump settings., Attestation: Possesses no safety concerns (eg. diagnosis of DKA/HHS, admit to ICU, risk of self harm), Attestation: Possesses visual acuity and fine motor skills to operate pump, Attestation: Alert and oriented x 4, Attestation: Verbalizes desire to remain on insulin pump during hospitalization and understands insulin pump agreement, Insulin Pump: Insulin Pump Settings, Insulin Pump Settings: Basal Rate, Carbohydrate Ratio, High Glucose Correction, Basal Rate (units/hr): 6, From (hh:mm): 1:00 AM, To (hh:mm): 8:00 AM, Basal Rate (units/hr): 3.2, From (hh:mm): 8:00 AM, To (hh:mm): 8:00 AM, Basal Rate (units/hr): 6, From (hh:mm): 8:00 PM, To (hh:mm): 12:00 AM, Carbohydrate Ratio: 1 unit per how many gm carbohydrate: 5, From: (hh:mm): 1:00 AM, To:(hh:mm): 1:00 PM, High Glucose Correction: 1 unit per how many mg/dL over target: 15, From:(hh:mm): 1:00 AM, To:(hh:mm): 1:00 PM, Choose Target (mg/dL): 120, Indications: Diabetes Mellitus 1247 (Self Administered Via Pump - Provider: Yamilet Hay RN)1815 (Self Administered Via Pump - Provider: Yamilet Hay RN - Comment: 75 carbs) 0933 (Self Administered Via Pump - Provider: Jessica Rodriguez RN - Comment: bg 336pt bolused 18.25)1308 (Self Administered Via Pump - Provider: Jessica Rodrgiuez RN - Comment: bg 178)1751 (Self Administered Via Pump - Provider: Jessica Rodriguez, LUAN)2020 (Self Administered Via Pump - Provider: Abelardo Brar RN - Comment: Patient stated he would not do a bolus for a blood sugar of 170.) 0845 (Self Administered Via Pump - Provider: Jessica Rodriguez RN - Comment: bg 235)1139 (Self Administered Via Pump - Provider: Jessica Rodriguez RN - Comment: bg 259)1303 (Self Administered Via Pump - Provider: Jessica Rodriguez RN)1832 (Self Administered Via Pump - Provider: Jessica Rodriguez RN) PRN Medication Order 11/01/2023 11/02/2023 11/03/2023 acetaminophen (TYLENOL) tablet 500 mg(Linked Group 4) 500 mg, oral, Every 6 hours PRN, 1st line for pain, Starting on Mon10/27/23 at 1200, If able to swallow medications., Indications: Pain benzocaine-menthoL (CHLORASEPTIC) lozenge 1 lozenge 1 lozenge, mouth/throat, Every 4 hours PRN, sore throat, Starting on Mon10/22/23 at 0345 1545 (Given - Provider: Yamilet Hay, RN) 1300 (Given - Provider: Jessica Rodriguez RN) bisacodyL (DULCOLAX) suppository 10 mg 10 mg, rectal, Daily PRN, constipation, Starting on Mon10/13/23 at 2332, Indications: constipation Carrier Fluids for Secondary Infusion - 0.9% Sodium Chloride 30 mL, intravenous, As needed, For priming tubing and/or flushing, Starting on Mon10/17/23 at 1324, 0-250 ml/hr to flush line after IV infusions when no maintenance IV ordered. Infuse 30mL at the same rate as the secondary infusion. Run as primary IV, not intended for KVO. dextrose (D10W) 10% bolus 250 mL(Linked Group 5) 250 mL, intravenous, at 1,000 mL/hr, Administer over 15 Minutes, Every 15 min PRN, blood glucose less than 70 mg/dL and UNABLE to swallow/take PO glucose/juice., Starting on Mon10/23/23 at 1052, After treatment for hypoglycemia, recheck BG followed by treatment every 15 minutes until the BG is greater than 100 mg/dL. Then check BG 1 hour post treatment. If BG is less than 100 mg/dL, repeat Q15 minute BG checks and treatment. Call MD for each episode of hypoglycemia., Indications: hypoglycemic disorder dextrose (GLUTOSE) 40 % gel 15 g(Linked Group 5) 15 g, oral, Every 15 min PRN, low blood sugar, blood glucose less than 70 mg/dL, Starting on Mon10/23/23 at 1052, If patient is alert and able to eat/drink, give 15 gm glucose or one juice (4 fluid ounces) NOT ORANGE JUICE. After treatment for hypoglycemia, recheck BG followed by treatment every 15 minutes until the BG is greater than 100 mg/dL. Then check BG 1 hour post-treatment. If BG is less than 100 mg/dL, repeat Q15 minute BG checks and treatment. Call MD for each episode of hypoglycemia. DIVISION CHAIR STATES GLUTOSE-15 CONTAINS GLUCOSE 40% W/W (50% W/V), Indications: hypoglycemic disorder glucagon injection 1 mg 1 mg, intramuscular, Every 30 min PRN, low blood sugar, blood glucose less than 70 mg/dL AND no IV access AND unable to take PO glucose/juice., Starting on 10/23/23 at 1052, After Glucagon is administered, position patient on side if possible to avoid aspiration. Obtain IV access. Follow glucagon treatment with glucose treatment or IV dextrose. After treatment for hypoglycemia, recheck BG followed by treatment every 15 minutes until the BG is greater than 100 mg/dL. Then check BG 1 hour post treatment. If BG is less than 100 mg/dL, repeat Q15 minute BG checks and treatment. Call MD for each episode of hypoglycemia. Reconstitute 1 mg vial with 1 mL SWFI. Use immediately following reconstitution. guaiFENesin (ROBITUSSIN) 20 mg/mL oral liquid 200 mg 200 mg, oral, Every 4 hours PRN, cough, Starting on Mon10/24/23 at 0739 heparin 5,000 unit/mL injection 2,000 Units(Linked Group 6) 2,000 Units, intravenous, Every 6 hours PRN, PTT 46-55 seconds, Starting on Gregoria 11/02/23 at 1225, Subsequent bolus during heparin infusion., Indications: atrial fibrillation 8 (See Alternative - Provider: Abelardo rBar RN) 0532 (Given - Provider: Abelardo Brar RN) heparin 5,000 unit/mL injection 3,000 Units(Linked Group 6) 3,000 Units, intravenous, Every 6 hours PRN, PTT less than 46 seconds, Starting on Gregoria 11/02/23 at 1225, Subsequent bolus during heparin infusion., Indications: atrial fibrillation 2218 (Given - Provider: Abelardo Brar RN) 0532 (See Alternative - Provider: Abelardo Brar RN) HYDROcodone-acetaminoph en (NORCO) 5-325 mg per tablet 1 tablet(Linked Group 7) 1 tablet, oral, Every 4 hours PRN, 2nd line for pain, Starting on Mon10/27/23 at 1114, Indications: Pain 0822 (Given - Provider: Yamilet Hay RN) 2023 (Given - Provider: Abelardo Brar RN) 0839 (Given - Provider: Jessica Rodriguez, LUAN) HYDROcodone-acetaminoph en (NORCO) 5-325 mg per tablet 2 tablet(Linked Group 7) 2 tablet, oral, Every 4 hours PRN, 3rd line for pain, Starting on Mon10/27/23 at 1114, Indications: Pain 0822 (See Alternative - Provider: Yamilet Hay RN) 2023 (See Alternative - Provider: Abelardo Brar RN) 08 (See Alternative - Provider: Jessica Rodriguez, LUAN) insulin lispro (HumaLOG, ADMELOG) 100 unit/mL injection 5 Units 5 Units, subcutaneous, Once as needed, other, insulin pump not functional, Starting on Mon10/23/23 at 1052, For 1 dose, Administer back up dose if insulin pump is not functional. Call MD for alternate insulin regimen., Indications: Diabetes Mellitus magnesium sulfate 2 g/50 mL in water (premix) 2 g 2 g, intravenous, Administer over 60 Minutes, Every 2 hours PRN, magnesium level 2 mg/dL or less, Starting on Mon10/17/23 at 1324, Discuss with provider before administering if creatinine equal to or greater than 1.8 mg/dL, urine output less than 20 ml/hr, and/or patient on renal replacement therapy (CRRT, hemodialysis). ondansetron (ZOFRAN) injection 4 mg 4 mg, intravenous, Administer over 2 Minutes, Every 6 hours PRN, nausea, vomiting, Starting on Mon10/17/23 at 1324, Administer no sooner than 6 hours after last dose. , Indications: Nausea and Vomiting potassium chloride ER (KLOR-CON) extended release tablet 20 mEq(Linked Group 8) 20 mEq, oral, Every 4 hours PRN, potassium level 3-8 to 4.4 mmol/L, Starting on Mon10/17/23 at 1324, If able to swallow tablets/capsules. Discuss with provider before administering if creatinine equal to or greater than 1.8 mg/dL, urine output less than 20 ml/hr, and/or patient on renal replacement therapy (CRRT, hemodialysis). Do not crush, chew, cut, dissolve, open or otherwise manipulate tablet/capsule., Indications: hypokalemia potassium chloride ER (KLOR-CON) extended release tablet 40 mEq(Linked Group 9) 40 mEq, oral, Every 4 hours PRN, potassium level 3.7 mmol/L or less, Starting on Mon10/17/23 at 1324, If able to swallow tablets/capsules. Discuss with provider before administering if creatinine equal to or greater than 1.8 mg/dL, urine output less than 20 ml/hr, and/or patient on renal replacement therapy (CRRT, hemodialysis). Do not crush, chew, cut, dissolve, open or otherwise manipulate tablet/capsule., Indications: hypokalemia 0530 (Given - Provider: Abelardo Brar, LUAN) ramelteon (ROZEREM) tablet 8 mg 8 mg, oral, Nightly PRN, sleep, Starting on Mon10/13/23 at 2332, Indications: Sleep-Onset Insomnia 2023 (Given - Provider: Abelardo Brar, LUAN) sodium chloride 0.9% flush 0.5-20 mL 0.5-20 mL, intra-catheter, As needed, line care, Starting on Mon10/17/23 at 1324, Flush volume based on line type and size. Flush before and after each use. , Indications: Flushing vancomycin INTERMITTENT dosing per Pharmacy 1 mg, intravenous, at 100 mL/hr, Administer over 60 Minutes, As needed, for INTERMITTENT DOSING PER PHARMACY, Starting on Mon10/31/23 at 0748, FOR INFORMATIONAL PURPOSES ONLY--DO NOT ADMINISTER FROM THIS ORDER, Indications: Skin/Soft Tissue Infection Linked Groups Order Group 1: aspirin chewable tablet 81 mgJump to med 81 mg, oral, Daily, First dose (after last modification) on Mon10/18/23 at 0915, If able to swallow medications. Within 6h of arrival to CVR if chest tube output allows. Group 2: docusate sodium (COLACE) capsule 100 mgJump to med 100 mg, oral, 2 times daily, First dose on Mon10/17/23 at 1400, If able to swallow medications. Hold for diarrhea. , Indications: constipation Or docusate (COLACE) 10 mg/mL oral liquid 100 mg (CANCELED) 100 mg, feeding tube, 2 times daily, First dose on Mon10/17/23 at 1400, If taking meds per tube. Hold for diarrhea., Indications: constipation Group 3: senna (SENOKOT) tablet 1 tabletJump to med 1 tablet, oral, 2 times daily, First dose on Mon10/18/23 at 0900, If able to swallow medications. Hold for diarrhea., Indications: constipation Or senna 1.76 mg/mL syrup 8.8 mg (CANCELED) 8.8 mg, feeding tube, 2 times daily, First dose on Mon10/18/23 at 0900, If taking meds per tube. Hold for diarrhea., Indications: constipation Group 4: acetaminophen (TYLENOL) tablet 500 mgJump to med 500 mg, oral, Every 6 hours PRN, 1st line for pain, Starting on Mon10/27/23 at 1200, If able to swallow medications., Indications: Pain Group 5: dextrose (GLUTOSE) 40 % gel 15 gJump to med 15 g, oral, Every 15 min PRN, low blood sugar, blood glucose less than 70 mg/dL, Starting on Mon10/23/23 at 1052, If patient is alert and able to eat/drink, give 15 gm glucose or one juice (4 fluid ounces) NOT ORANGE JUICE. After treatment for hypoglycemia, recheck BG followed by treatment every 15 minutes until the BG is greater than 100 mg/dL. Then check BG 1 hour post-treatment. If BG is less than 100 mg/dL, repeat Q15 minute BG checks and treatment. Call MD for each episode of hypoglycemia. DIVISION CHAIR STATES GLUTOSE-15 CONTAINS GLUCOSE 40% W/W (50% W/V), Indications: hypoglycemic disorder Or dextrose (D10W) 10% bolus 250 mLJump to med 250 mL, intravenous, at 1,000 mL/hr, Administer over 15 Minutes, Every 15 min PRN, blood glucose less than 70 mg/dL and UNABLE to swallow/take PO glucose/juice., Starting on Mon10/23/23 at 1052, After treatment for hypoglycemia, recheck BG followed by treatment every 15 minutes until the BG is greater than 100 mg/dL. Then check BG 1 hour post treatment. If BG is less than 100 mg/dL, repeat Q15 minute BG checks and treatment. Call MD for each episode of hypoglycemia., Indications: hypoglycemic disorder Group 6: heparin 5,000 unit/mL injection 2,000 UnitsJump to med 2,000 Units, intravenous, Every 6 hours PRN, PTT 46-55 seconds, Starting on Gregoria 11/02/23 at 1225, Subsequent bolus during heparin infusion., Indications: atrial fibrillation Or heparin 5,000 unit/mL injection 3,000 UnitsJump to med 3,000 Units, intravenous, Every 6 hours PRN, PTT less than 46 seconds, Starting on Gregoria 11/02/23 at 1225, Subsequent bolus during heparin infusion., Indications: atrial fibrillation Group 7: HYDROcodone-acetaminophen (NORCO) 5-325 mg per tablet 1 tabletJump to med 1 tablet, oral, Every 4 hours PRN, 2nd line for pain, Starting on Mon10/27/23 at 1114, Indications: Pain Or HYDROcodone-acetaminophen (NORCO) 5-325 mg per tablet 2 tabletJump to med 2 tablet, oral, Every 4 hours PRN, 3rd line for pain, Starting on Mon10/27/23 at 1114, Indications: Pain Group 8: potassium chloride ER (KLOR-CON) extended release tablet 20 mEqJump to med 20 mEq, oral, Every 4 hours PRN, potassium level 3-8 to 4.4 mmol/L, Starting on Mon10/17/23 at 1324, If able to swallow tablets/capsules. Discuss with provider before administering if creatinine equal to or greater than 1.8 mg/dL, urine output less than 20 ml/hr, and/or patient on renal replacement therapy (CRRT, hemodialysis). Do not crush, chew, cut, dissolve, open or otherwise manipulate tablet/capsule., Indications: hypokalemia Or potassium chloride (KLOR-CON) packet 20 mEq (CANCELED) 20 mEq, feeding tube, Every 4 hours PRN, potassium level 3.8 to 4.4 mmol/L, Starting on Mon10/17/23 at 1324, If receiving meds per tube. Discuss with provider before administering if creatinine equal to or greater than 1.8 mg/dL, urine output less than 20 ml/hr, and/or patient on renal replacement therapy (CRRT, hemodialysis). Dissolve one packet in at least 120 mL of cold water or other beverage prior to administration., Indications: hypokalemia Group 9: potassium chloride ER (KLOR-CON) extended release tablet 40 mEqJump to med 40 mEq, oral, Every 4 hours PRN, potassium level 3.7 mmol/L or less, Starting on Mon10/17/23 at 1324, If able to swallow tablets/capsules. Discuss with provider before administering if creatinine equal to or greater than 1.8 mg/dL, urine output less than 20 ml/hr, and/or patient on renal replacement therapy (CRRT, hemodialysis). Do not crush, chew, cut, dissolve, open or otherwise manipulate tablet/capsule., Indications: hypokalemia Or potassium chloride (KLOR-CON) packet 40 mEq (CANCELED) 40 mEq, feeding tube, Every 4 hours PRN, potassium level 3.7 mmol/L or less, Starting on Mon10/17/23 at 1324, If receiving meds per tube. Discuss with provider before administering if creatinine equal to or greater than 1.8 mg/dL, urine output less than 20 ml/hr, and/or patient on renal replacement therapy (CRRT, hemodialysis). Dissolve one packet in at least 120 mL of cold water or other beverage prior to administration., Indications: hypokalemia documented in this encounter Orders Medications Ordered That Pablo ht Not Have Been Administered Count Last Ordered Date First Ordered Date INSULIN PUMP REFILL lispro ( HumaLOG, ADMELOG) solution 300 Units 1 11/01/2023 vancomycin INTERMITTENT dosi ng per Pharmacy 1 10/31/2023 Dianeal low calcium-dextrose 4.25 % 6,000 mL with heparin 3,000 Units dialysis solution 1 10/29/2023 dextrose (D10W) 10% bolus 250 mL 4 10/23/19 24 10/14/2023 dextrose (GLUTOSE) 40 % gel 15 g 4 10/23/19 24 10/14/2023 glucagon injection 1 mg 3 10/23/2023 02/2 11/2023 insulin lispro (HumaLOG, ADM ELOG) 100 unit/mL injection 5 Units 2 10/23/2023 10/14/2023 insulin NPH (HumuLIN N, Abel JAYA N) 100 unit/mL injection 35 Units 1 10/23/2023 acetaminophen (TYLENOL) tablet 1,000 mg 1 0 10/20/2023 insulin lispro (HumaLOG, ADM ELOG) 100 unit/mL injection 0-5 Units 2 10/19/2023 10/17/2023 oxyCODONE (ROXICODONE) tablet 2.5 mg 1 09/22 Dianeal low calcium-dextrose 2.5 % 6,000 mL dialysis solution 10/18/2023 HYDROmorphone (PF) (DILAUDID ) injection 0.2 mg 1 10/18/2023 acetaminophen (TYLENOL) suppository 650 mg 1 10/17/2023 aspirin suppository 300 mg 1 10/17/2023 aspirin tablet 325 mg 2 10/17/2023 bisacodyL (DULCOLAX) suppository 10 mg 2 10/13/2023 Carrier Fluids for Secondary Infusion - 0.9% Sodium Chloride 2 10/17/2023 10/13/2023 ceFAZolin (ANCEF) 3,000 mg/3 0 mL in sterile water (premix) 3,000 mg 2 10/17/2023 10/16/19 dextrose 5% water flush 10-30 mL 10/17/19 heparin 5,000 unit/mL inject ion 5,000 Units 10/17/2023 insulin lispro (HumaLOG, ADM ELOG) 100 unit/mL injection 0-4 Units 1 10/17/2023 insulin lispro (HumaLOG, ADM ELOG) 100 unit/mL injection 1-14 Units 1 10/17/2023 insulin regular bolus from bag 2-14 Units 1 10/17/2023 magnesium sulfate 2 g/50 mL in water (premix) 2 g 1 10/17/2023 milrinone (PRIMACOR) 3.3 mg in sodium chloride 0.9% 46.7 mL solution 1 10/17/2023 papaverine 120 mg, heparin 1 0,000 Units in Lactated Ringer's (LR) 500 mL irrigation solution 10/17/2023 polyethylene glycol (MIRALAX) packet 17 g 10/17/2023 potassium chloride (KLOR-CON ) packet 20 mEq 10/17/2023 potassium chloride (KLOR-CON ) packet 40 mEq 10/17/2023 potassium chloride 20 mEq/50 mL in sterile water (premix) 20 mEq 1 10/17/2023 potassium chloride ER (KLOR- CON) extended release tablet 20 mEq 1 10/17/2023 senna 1.76 mg/mL syrup 8.8 mg 1 10/17/2023 sodium chloride 0.9% irrigation 1 sodium chloride 0.9% solution 1 10/17/2023 vancomycin 2,000 mg/520 mL i n sodium chloride 0.9% (premix) 2,000 mg 2 10/17/2023 10/16/19 insulin glargine (LANTUS, SE MGLEE) 100 unit/mL injection 15 Units 1 10/16/2023 sodium chloride 0.9% infusion 1 10/16/2023 cholecalciferol (VITAMIN D-3 ) tablet 50,000 Units 1 10/14/2023 clopidogreL (PLAVIX) tablet 75 mg 1 024 heparin 5,000 unit/mL inject ion 2,000 Units 1 10/14/2023 insulin glargine (LANTUS, SE MGLEE) 100 unit/mL injection 22 Units 1 10/14/2023 acetaminophen (TYLENOL) tablet 650 mg 1 enoxaparin (LOVENOX) syringe 40 mg 1 2023 ondansetron (ZOFRAN) injection 4 mg 1 10/13 ondansetron ODT (ZOFRAN-ODT) disintegrating tablet 4 mg 1 10/13/2023 sodium chloride 0.9% flush 0.5-20 mL 1 09/22 Lab Orders Without Results Count Last Ordered D ate First Ordered Date POCT GLUCOSE DEVICE 121 11/03/2023 10/14/19 Imaging Orders Without Results Count Last Order ed Date First Ordered Date PEP THERAPY/AIRWAY CLEARANCE 28 11/02/2023 10/22/2023 Diet Count Last Ordered Date First Orde red Date ADULT DISCHARGE DIET 1 10/20/2023 Nursing Count Last Ordered Date First Orde red Date NO WARFARIN 2 10/22/2023 10/21/2023 TELEMETRY MONITORING 1 10/21/2023 DISCHARGE ACTIVITY 5 10/20/2023 DISCHARGE CALL PROVIDER 4 10/20/2023 DISCHARGE INSTRUCTIONS 2 10/20/2023 FOLLOW UP WITH ESTABLISHED PROVIDER 1 10/19 DISCONTINUE VASCULAR ACCESS (SPECIFY) 1 WEIGH PATIENT 1 10/13/2023 Consult Count Last Ordered Date First Orde red Date IP CONSULT TO ENDOCRINOLOGY 1 10/18/2023 IP CONSULT TO VEGETABLE CUTTER 1 IP CONSULT TO CARDIOLOGY 1 10/14/2023 IP CONSULT TO CARDIOTHORACIC SURGERY 1 09/22 IP CONSULT TO NEPHROLOGY 1 10/14/2023 Dialysis Count Last Ordered Date First Orde red Date CONTINUOUS CYCLIC PERITONEAL DIALYSIS ([facility]) 19 11/02/2023 10/14/2023 Admission Count Last Ordered Date First Orde red Date ADMIT TO INPATIENT 1 10/13/2023 Transfer Count Last Ordered Date First Orde red Date TRANSFER PATIENT TO NEW UNIT 2 10/20/2023 10/17/2023 Discharge Count Last Ordered Date First Orde red Date DISCHARGE PATIENT 1 11/03/2023 documented in this encounter Care Teams Motor Vehicle 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
--- OUTSIDE RECORDS SUMMARY | 2024-08-18 13:07 | XMS_ITS | Encounter Summary ---
Author Organization [facility] Healthcare Address [address] [place] [address] Care Team Providers Care Fast Food Delivery Driver Name Role Phone Aditya Castro MD Primary Care Provider [phone] Reason for Visit * Auth/Cert Specialty Diagnoses / Procedures Referred By Aguilar t Referred To Contact Diagnoses CAD in muscogee artery Needs CABG (12 or 1300) Procedures N Referral ID Status Reason Start Date Expiration Date Visits Re quested Visits Authorized [id number] 1 1 Encounter Details Date Type Department Care Team (Late st Contact Info) Description 10/17/2023 8:03 AM WET PROCESS HEAD MILLER Anesthesia Event [facility] Operating Room [address] [place] [id number] Ayden Alan MD [address] [place] [address] Ravi Tahcker CRNA [address] [place] [address] Anesthesia Record Procedure Summary Procedure Name Responsible Anesthesiologist Anesthesia Start Time Anesthesia Stop Time CORONARY ARTERY BYPASS GRAFT, AORTIC VALVE REPLACEMENT (Chest) Ayden Alan MD 10/17/23 0803 10/17/23 1335 Events Date Time Event Comment 10/17/2023 0639 0803 An Start 0803 In Room 0803 An Start Data 0804 Perfusion Ready 0804 Start Data 0804 An Induction The patient was reevaluated immediately before moderate or deep sedation use and before anesthesia induction. 0806 An Intubation 0840 LEIA placed 0842 Anesthesia Ready 0847 Incision Start 1002 CO2 On 3 lpm 1006 CPB ON Arterial 24 fr Venous [id number] fr Cdpg kbc 1006 Cooling Start 1006 Ultrafiltration On 1013 Aortic Clamp ON 1030 Cooling Stop 1042 Flow Up Per Surgeon nassar 1130 Rewarming Start 1146 Aortic Clamp OFF 1146 CO2 Off 1203 CPB OFF 1203 Ultrafiltration Off 1203 Rewarming Stop 1313 Out of Room 1314 an stop data 1335 Handoff to RN I completed my handoff to the receiving nurse during which we: 1. Patient identified 2. Responsible provider identified 3. Pertinent medical history reviewed 4. Procedure type and surgical course discussed 5. Intraoperative anesthetic management and any significant issues discussed 6. Expectations and concerns for postop period discussed 7. Questions solicited from receiving nurse 8. Patient disposition at the time of handoff: No value filed. 1335 An Stop 1335 Release from care Meds Name Total midazolam 5 mg fentaNYL 1,000 mcg rocuronium 180 mg heparin 1,000 unit/ml 50,000 Units heparin injection 1,000 unit/mL 30,000 U nits protamine 500 mg insulin regular 10 Units insulin regular infusion 9.73 Units norepinephrine infusion 1.46 mg DOBUTamine 70.67 mg ceFAZolin 6,000 mg propofol 60 mg propofol 930.73 mg phenylephrine (JOAQUÍN-SYNEPHRINE) injection 2,400 mcg anticoagulant citrate dextrose solution A injection 1,000 mL mannitol 26 mL, lidocaine (c ardiac) (XYLOCAINE) 13 mL, magnesium sulfate 8 mL solution 31 mL potassium chloride 2 mEq/mL (ARREST SOLU TION) 46 mEq Lactated Ringer's (LR) 1,000 mL with albumin 100 mL, heparin 10 mL, mannitol 25 g solution 1,000 mL sodium bicarbonate injection 1 mEq/mL 12 5 mEq calcium chloride 1 g albumin 5 % 250 mL * Agents Name O2 N2O Air Isoflurane Inspired Isoflurane * Blood Name Total PLATELETS - CROSSMATCHED 200 mL FFP - CROSSMATCHED 519 mL CRYOPRECIP - CROSSMATCHED 173 mL PRBC - CROSSMATCHED 250 mL Lines, Drains, and Airways Type Details Placement Removal Peritoneal Dialysis Catheter Other (Comment); Continuous cycling 06/05/22 0143 by Peripheral IV Placement Date: 10/06/23; Existing LDA Placed by: Other [facility]; Catheter Size: 18 G; Orientation: Anterior, Distal, Right, Upper; Location: Antecubital; Removal Date: 10/18/23; Removal Time: 199910/06/23 0000 by Ellie Zeng RN 10/18/231999 by Belle Stevenson RN Peripheral IV Placement Date: 10/07/23; Existing LDA Placed by: Other hospital; Catheter Size: 20 G; Orientation: Anterior, Left; Location: Forearm; Removal Date: 10/18/23; Removal Time: 3910/07/23 0000 by Ellie Zeng RN 10/18/23 0040 by Belle Stevenson RN NG/OG/Gastric tube Placement Date: 10/17/23; Type: Orogastric; Location: Right mouth; Removal Date: 10/18/23; Removal Time: 0745; Removal Reason: Therapy complete 10/17/23 0000 by Amena Irving RN 10/18/23 0745 by Renetta Keys RN Urethral Catheter Placement Date: 10/17/23; Placement Time: 0814; Inserted by: Jessica Frost; Type: Non-latex, Temperature probe; Balloon Size: 10 mL; Urine Returned: Yes; Removal Date: 10/20/23; Removal Time: 1006; Removal Reason: Therapy complete 10/17/23 0814 by Dee Ibarra RN 10/20/23 1006 by Renetta Keys RN RETIRED Surgical Site 10/17/23; 0848; No ; Right, Proximal; Knee; vein harvest site; 07/23/24 (Retired LDA, Removed/Completed by [facility] with LDA Utility); 1213 (Retired LDA, Removed/Completed by [employer] with LDA Utility) 10/17/23 0848 by Dee Ibarra RN 07/23/24 1213 by Discharge Provider, Automatic ETT Placement Date: 10/17/23; Placement Time: 0854 (created via procedure documentation); Mask Ventilation: 1; Technique: Video laryngoscopy; Type: ETT - single; Single Lumen Tube Size: 8 mm; Cuffed: Yes; Laryngoscope: Breann; Blade Size: 3; Location: Oral; Grade View: Grade I; Insertion Attempts: 1; Placement Verification: Auscultation, Capnometry; Removal Date: 10/18/23; Removal Time: 0745 10/17/23 0854 by Ayden Alan MD 10/18/23 0745 by Chula Bennett RRT Arterial Line Placement Date: 10/17/23; Placemnt Time: 0855 (created via procedure documentation); Size: 20 G; Orientation: Right; Location: Radial; Securement: Taped, Transparent dressing; Removal Date: 10/19/23; Removal Time: 1200 10/17/23 0855 by Ayden Alan MD 10/19/23 1200 by Magalie Riley RN Introducer Placement Date: 10/17/23; Placement Time: 0856 (created via procedure documentation); Existing LDA Placed by: Yes; Size: introducer sheath; Insertion Attempts: 10/18/23; Securement: 1510 10/17/23 0856 by Ayden Alan MD 10/18/23 1510 by Renetta Keys RN PA Catheter Placement Date: 10/17/23; Placement Time: 0856 (created via procedure documentation); Site Prep: Other (Comment); Removal Date: 10/18/23; Removal Time: 1510; Cath Tip Cultured: No 10/17/23 0856 by Ayden Alan MD 10/18/23 1510 by Renetta Keys RN CVC Quadruple Lumen Placement Date: 10/17/23; Placement Time: 0857 (created via procedure documentation); Hand Hygiene: Yes; Site Prep: Other (Comment); Size: 8.5 Fr; Orientation: Right; Location: Internal jugular; Placement Verification: Ultrasound; Removal Date: 11/03/23; Removal Time: 1525; Removal Reason: Discharge 10/17/23 0857 by Ayden Alan MD 11/03/23 1525 by Carey Alas RN RETIRED Surgical Site 10/17/23; 0914; No ; Mid-line; Sternum; sternotomy; 07/23/24 (Retired LDA, Removed/Completed by [facility] with LDA Utility); 1213 (Retired LDA, Removed/Completed by [facility] with LDA Utility) 10/17/23 0914 by Dee Ibarra RN 07/23/24 1213 by Discharge Provider, Automatic RETIRED Surgical Site 10/17/23; 0930; No ; Anterior, Proximal, Right; Herman/tibia; 07/23/24 (Retired LDA, Removed/Completed by [facility] with LDA Utility); 1213 (Retired LDA, Removed/Completed by [facility] with LDA Utility) 10/17/23 0930 by Dee Ibarra RN 07/23/24 1213 by Discharge Provider, Automatic Closed/Suction/Open Drain 10/17/23; 0930; No; Right, Proximal; Thigh; Bulb; 19 Fr.; 1 10/17/23 0930 by Dee Ibarra RN 10/19/23 1515 by Magalie Riley RN RETIRED Surgical Site 10/17/23; 0931; No ; Right, Upper, Anterior, Proximal; Thigh; vein harvest site; 07/23/24 (Retired LDA, Removed/Completed by [facility] with LDA Utility); 1213 (Retired LDA, Removed/Completed by [facility] with LDA Utility) 10/17/23 0931 by Dee Ibarra RN 07/23/24 1213 by Discharge Provider, Automatic Pacer Wires 10/17/23; 1215; Dr. Mcnulty; Atrial and Ventricular (x1 A, x1 V, x2 skin); 10/24/23; 0730 (removed by Nona GRACE) 10/17/23 1215 by Dee Ibarra RN 10/24/23 0730 by Carey Alas RN Chest Tube Placement Date: 10/17/23; Placement Time: 1227; Inserted by: Dr. Mcnulty; Orientation: Left; Location: Pleural; Size: 28 Fr; Drainage System: Drummond/nonsuction water seal drainage, Suction; Sutures Placed: 1; Removal Date: 10/19/23; Removal Time: 1500 10/17/23 1227 by Dee Ibarra RN 10/19/23 1500 by Magalie Riley RN Y Chest Tube A and B 10/17/23; 1227; Mediastinal; 28 Fr.; 1; Mediastinal; 24 Fr.; 1; Therapy complete (Removed and dressed by PA) 10/17/23 1227 by Dee Ibarra RN 10/21/23 1200 by Jessica Rodriguez RN RETIRED Negative Pressure Wound Therapy 10/17/23; 1255; Surgical incision; Mid-line; Sternum; 10/24/23; 1243 10/17/23 1255 by Dee Ibarra RN 10/24/23 1243 by Carey Alas RN documented in this encounter Social History Tobacco Use Types Packs/Day Years Used Date Smoking Tobacco: Never Smokeless Tobacco: Former Alcohol Use Standard Drinks/Week Comments No 0 (1 standard drink = 0.6 oz pur e alcohol) [facility] Utilities Answer Date Recorded In the past 12 months has [employer], gas, oil, or water [employer] threatened to shut off services in your [...] place to sleep or slept in a residential (including now)? No 10/16/2023 Personal Safety Answer Date Recorded Have you ever been in or are you currently in a harmful physical or emotional relationship or is someone making you feel afraid or unsafe? 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 Male 3:42 AM WET PROCESS HEAD MILLER Gender Identity Not on file Sexual Orientation Not on file documented as of this encounter OR Notes * Anesthesia Postprocedure Evaluation - Ayden Alan MD - 10/17/2023 1:35 PM CST Patient: Juvenal Daigle Jr. Procedure Summary Date: 10/17/23 Room / Location: [facility] Anesthesia Start: 802 Anesthesia Stop: 1334 Procedures: CORONARY ARTERY BYPASS GRAFT, AORTIC VALVE REPLACEMENT (Chest) REPLACEMENT AORTIC VALVE (Chest) Diagnosis: Aortic valve stenosis, etiology of cardiac valve disease unspecified Coronary arteriosclerosis in muscogee artery (Aortic valve stenosis, etiology of cardiac valve disease unspecified [I35.0]) (Coronary arteriosclerosis in muscogee artery [I25.10]) Surgeons: Lorne Mcnulty MD Responsible Provider: Ayden Alan MD Anesthesia Type: general ASA Status: 4 Anesthesia Type: general Last vitals BP 118/59 (BP Location: Left arm) Pulse 90 Temp 36.8 ??C (98.2 ??F) (Core) Resp 9 SpO2 97% Anesthesia Post Evaluation Patient location during evaluation: ICU Patient participation: waiting for patient participation Level of consciousness: unconscious Pain score: unable to evaluate Pain management: satisfactory to patient Airway patency: adequate Evidence of recall: unable to evaluate Cardiovascular status: acceptable Respiratory status: ETT and ventilator Hydration status: acceptable Pt is: normothermic Nausea/Vomiting status: unable to evaluate No notable events documented. PROCESS HEAD MILLER * Anesthesia Procedure Notes - Ayden Alan MD - 10/17/2023 9:31 AM WET PROCESS HEAD MILLER Associated Order(s): LEIA LEIA Date/time: 10/17/2023 9:31 AM Staff: Supervising anesthesiologist: Ayden Alan MD Performed by: Anesthesiologist: Ayden Alan MD 1st PRESS WORKER HELPER: Ravi Thacker CRNA Preprocedure checklist: patient identified, procedure contraindications assessed, procedure consent, risks, benefits and alternatives discussed, monitors and equipment checked, timeout performed and LEIA probe inserted into esophagus using lubricating jelly General procedure Information: Reason for procedure/indications: assessment of surgical repair Performed: personally Procedure performed at surgeon's request: yes Results discussed with surgeon: yes Images submitted to archive: yes Patient location: OR Intubated: yes Bite blocked placed: yes Probe Insertion: easy Complications: no Probe type: adult Modalities: 2D imaging, 3D imaging, continuous wave Doppler, pulsed wave Doppler and color Doppler Billing information: Physician requesting echo: Lorne Mcnulty MD CPT code: LEIA placement and diagnostic exam, non-congenital (35232) ICD code(s) for medical necessity: I35.2 - Nonrheumatic aortic (valve) stenosis with insufficiency:I25.110. Echocardiographic and doppler measurements: Ventricles: Left ventricle: [...] inferior: hypokinetic 16- Apical septal: hypokinetic 17- [place]: hypokinetic Valves: Aortic Valve: Annulus: calcified Leaflet [...] valve: Annulus: normal Stenosis: none Regurgitation: trace ([place] is transvalvular) Aorta: Ascending aorta: Size: [...] he or she has personally reviewed and interpreted the echocardiogram and has reviewed and or edited and agrees with the written comments contained within the report. PROCESS HEAD MILLER * Anesthesia Procedure Notes - Ayden Alan MD - 10/17/2023 8:56 AM WET PROCESS HEAD MILLER Associated Order(s): Central Venous Line Central Venous Line Patient location: OR Indication: central venous access and CVP monitoring Staff: Supervising provider: Ayden Alan MD Placed by: PRESS WORKER HELPER: Ravi Thacker CRNA Procedure prep: Patient position: Trendelenburg. PPE: provider hand hygiene, provider hat/mask, sterile gloves, sterile gown and full body drape. Prep solution: other was applied to area. Ultrasound Evaluation: Ultrasound was prepped into field. Central line: Laterality: right Site: internal jugular Catheter type: quad lumen Catheter size: 8.5 Fr. Catheter length: 16 cm Technique: wire threaded easily, anatomy identified with surface landmarks, anatomy identified withultrasound, vein located with finder needle, Seldinger technique and wire removed intact Venous verification: manometry, ultrasound confirmation and LEIA confirmation Post insertion: all ports aspirated, all ports flushed easily, line sutured in place and occlusive dressing applied Number of attempts: 1 Assessment: Events: patient tolerated procedure well with no complications PROCESS HEAD MILLER * Anesthesia Procedure Notes - Ayden Alan MD - 10/17/2023 8:55 AM WET PROCESS HEAD MILLER Associated Order(s): Central Venous Line Central Venous Line Patient location: OR Indication: central venous access and CVP monitoring Staff: Supervising provider: Ayden Alan MD Placed by: PRESS WORKER HELPER: Ravi Thacker CRNA Procedure prep: Patient position: Trendelenburg. PPE: provider hand hygiene, provider hat/mask, sterile gloves, sterile gown and full body drape. Prep solution: other was applied to area. Ultrasound Evaluation: Ultrasound was prepped into field. Central line: Laterality: right Site: internal jugular Catheter type: introducer sheath Catheter size: 9 Fr. Catheter length: 10 cm Technique: anatomy identified with surface landmarks, anatomy identified with ultrasound, vein located with finder needle, Seldinger technique, wire threaded easily and wire removed intact Venous verification: manometry, ultrasound confirmation and LEIA confirmation Post insertion: all ports aspirated, all ports flushed easily, line sutured in place and occlusive dressing applied Number of attempts: 1 PA catheter placement: PA catheter type: non-oximetric PA catheter size: 7.5 Fr PA catheter laterality: right PA catheter site: internal jugular Placement guided by: pressure tracing changes PA catheter depth 46 cmNo Assessment: Events: patient tolerated procedure well with no complications PROCESS HEAD MILLER * Anesthesia Procedure Notes - Ayden Alan MD - 10/17/2023 8:54 AM WET PROCESS HEAD MILLER Associated Order(s): Arterial Line Arterial Line Patient location: OR Indication: continuous blood pressure monitoring and blood sampling needed Staff: Supervising provider: Ayden Alan MD Placed by: PRESS WORKER HELPER: Ravi Thacker CRNA Procedure prep: Prep solution: other Prep: provider hat/mask Arterial line: Catheter size: 20 gauge Catheter length: 1 and 3/4 inch Catheter type: wire-guided catheter Seldinger technique: yes Laterality: right Site: radial artery Line secured: tape and Tegaderm Results: good waveform and good blood return Number of attempts: 1 Assessment: Events: patient tolerated procedure well with no complications PROCESS HEAD MILLER * Anesthesia Procedure Notes - Ayden Alan MD - 10/17/2023 8:53 AM WET PROCESS HEAD MILLER Associated Order(s): Airway Airway Patient location: OR Urgency: elective Indications for airway management: anesthesia Difficult airway: no Staff: Placed by: Anesthesiologist: Ayden Alan MD Emergent airway documentation: Risks and benefits discussed: yes Consent obtained: yes Consent given by: patient Airway prep: Preoxygenated: yes Patient position: sniffing Mask difficulty assessment: 1 - vent by mask Sedation level during airway: GA Final airway details: Final airway type: endotracheal airway Tube type: ETT ETT size: 8.0 mm Cuffed: yes Technique used for successful ETT placement: video laryngoscopy Insertion site: oral Blade type: Breann Video blade type: Morales Blade size: 3 Cormack-Lehane (direct): grade I - full view of glottis Cuff inflated with: air Placement verified by: auscultation and CO2 detection Airway secured with: silk tape Number of attempts: 1no PROCESS HEAD MILLER * Anesthesia Preprocedure Evaluation - Ayden Alan MD - 10/17/2023 6:38 AM CST Images from the original note were not included. Anesthesia Evaluation Juvenal Daigle Jr. is a 53 y.o. male CORONARY ARTERY BYPASS GRAFT (8:00 start per JS) (Chest) REPLACEMENT AORTIC VALVE (Chest) Pre-Op Diagnosis Codes: * Aortic valve stenosis, etiology of cardiac valve disease unspecified [I35.0] * Coronary arteriosclerosis in muscogee artery [I25.10] Patient Active Problem List Diagnosis Date Noted CAD in muscogee artery 10/13/2023 Anemia 06/22/2022 ESRD (end stage renal disease) ([facility] ([facility]) 06/22/2022 Acute on chronic HFrEF (heart failure with reduced ejection fraction) ([facility]) 06/22/2022 Atrial fibrillation ([facility]) ([facility]) 06/22/2022 NSTEMI (non-ST elevated myocardial infarction) ([facility]) ([facility]) 06/22/2022 Cardiogenic shock ([facility]) 06/22/2022 Acute hypoxemic respiratory failure ([facility]) 06/09/2022 Hypotension 06/03/2022 Abnormal cardiovascular stress test 12/29/2020 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 ([facility]) ([facility]) 05/23/2017 History of coronary artery stent placement 05/23/2017 Macular ischemia 03/17/2017 Combined forms of age-related cataract 03/17/2017 Proliferative diabetic retinopathy associated with type 2 diabetes mellitus ([facility]) 03/17/2017 Type 2 diabetes mellitus treated with insulin ([facility]) ([facility]) 03/25/2015 Chronic kidney disease, stage III (moderate) ([facility]) 03/25/2015 Benign essential hypertension 03/25/2015 Hyperlipidemia 03/25/2015 Pain of finger 11/24/2014 Hypersomnia 11/22/2013 Chronic kidney disease 11/22/2013 Hypertension 01/18/2013 Type 1 diabetes mellitus ([facility]) 01/18/2013 Past Medical History: Diagnosis Date CAD (coronary artery disease) Chest pain Diabetes mellitus ([facility]) Diabetes mellitus type I ([facility]) Dialysis patient ([facility] ([facility]) ESRD on dialysis ([facility]) ([facility]) GERD (gastroesophageal reflux disease) Hyperlipidemia Hypertension Sleep apnea SOB (shortness of breath) Past Surgical History: Procedure Laterality Date APPENDECTOMY Appendectomy APPENDECTOMY CENTRAL LINE PLACEMENT > 5 YEARS N/A 06/18/2022 CORONARY ANGIOPLASTY WITH STENT PLACEMENT FEMUR SURGERY KNEE SURGERY knee surgery OPEN REDUCTION INTERNAL FIXATION ORIF OTHER SURGICAL HISTORY eye surg-vitrectomy Allergies Allergen Reactions Allopurinol Other (See comments) [...] Rash Iodinated Diagnostic Agents Ticagrelor Rash Rash Med List Status: Nurse Complete Set By: Ellie Zeng RN at 10/14/2023 12:02 AM Taking? Last Dose Start Date End Date Provider acetaminophen 500 mg capsule Past Week 06/29/22 -- Frank Bowers MD Take 2 capsules (1,000 mg total) by mouth every 6 (six) hours as needed for pain aspirin 81 mg enteric coated tablet Past Week 11/07/13 -- Zev Adames MD atorvastatin (LIPITOR) 80 mg tablet 10/12/2023 -- -- Zev Adames MD calcitRIOL (ROCALTROL) 0.25 mcg capsule 10/12/2023 -- -- Zev Adames MD calcium acetate,phosphat bind, (PHOSLO) 667 mg capsule 10/12/2023 -- -- Zev Adames MD cetirizine (ZyrTEC) 10 mg tablet 10/12/2023 -- -- Zev Adames MD cholecalciferol (VITAMIN D-3) 2000 unit tablet Past Week -- -- Provider, MD Zev clopidogrel (PLAVIX) 75 mg tablet 10/12/2023 01/28/19 -- Abelardo Petit MD TAKE 1 TABLET BY MOUTH DAILY colchicine (COLCRYS) 0.6 mg tablet 10/12/2023 -- -- Zev Adames MD EZETIMIBE ORAL 10/12/2023 -- -- Zev Adames MD famotidine (PEPCID) 40 mg tablet 10/12/2023 -- -- Provider, MD Zev gemfibroziL (LOPID) 600 mg tablet 10/12/2023 -- -- Zev Adames MD icosapent ethyL (VASCEPA) 1 gram capsule 10/12/2023 -- -- Zev Adames MD insulin lispro (HumaLOG, ADMELOG) 100 unit/mL vial for injection 10/12/2023 06/29/22 -- Frank Bowers MD THIS IS FOR THE INSULIN PUMP: Continue Omnipod 5 insulin pump with [employer] G6 CGM at home settings: TIME BASAL RATE TOTAL BASAL DAILY DOSE: 65.85 0330 1.7 units/hour 0800 0.8 units/hour 2000 5.8 units/hour isosorbide mononitrate ER (IMDUR) 30 mg 24 hr tablet 10/12/2023 12/24/18 -- Abelardo Petit MD TAKE 1 TABLET BY MOUTH EVERY DAY losartan (COZAAR) 25 mg tablet () -- 06/30/22 06/30/23 Frank Bowers MD Take 0.5 tablets (12.5 mg total) by mouth daily metoprolol (LOPRESSOR) 100 mg tablet 10/12/2023 -- -- ProviderZev MD NIFEdipine (NIFEdipine XL) 90 mg 24 hr tablet 10/12/2023 -- -- Zev Adames MD omeprazole (PriLOSEC) 20 mg capsule 10/12/2023 -- -- ProviderZev MD pen needle, diabetic (BD Ultra-Fine Short Pen Needle) 31 gauge x 5/16 needle Not Taking 01/30/18 -- Zev Adames MD potassium chloride ER 10 mEq CR tablet 10/12/2023 -- -- ProviderZev MD ranolazine ER (RANEXA) 500 mg 12 hr tablet 10/12/2023 -- -- Zev Adames MD Current Facility-Administered Medications: [Transfer Hold] acetaminophen (TYLENOL) tablet 650 mg, 650 mg, oral, Q4H PRN [Transfer Hold] ALPRAZolam (XANAX) tablet 1 mg, 1 mg, oral, TID PRN, 1 mg at 10/16/232141 [Transfer Hold] aspirin enteric coated tablet 81 mg, 81 mg, oral, Daily, 81 mg at 10/16/23818 [Transfer Hold] atorvastatin (LIPITOR) tablet 80 mg, 80 mg, oral, Daily, 80 mg at 10/16/23818 [Transfer Hold] bisacodyL (DULCOLAX) suppository 10 mg, 10 mg, rectal, Daily PRN [Transfer Hold] calcitRIOL (ROCALTROL) capsule 0.25 mcg, 0.25 mcg, oral, Daily, 0.25 mcg at 10/16/23 0818 [Transfer Hold] calcium acetate(phosphat bind) (PHOSLO) capsule 667 mg, 667 mg, oral, TID with meals, 667 mg at 10/16/23 1733 [Transfer Hold] Carrier Fluids for Secondary Infusion - 0.9% Sodium Chloride, 30 mL, intravenous, PRN ceFAZolin (ANCEF) 3,000 mg/30 mL in sterile water (premix) 3,000 mg, 3,000 mg, intravenous, Once [Held by Provider] colchicine (COLCRYS) tablet 0.6 mg, 0.6 mg, oral, Once per day on Monday, 0.6 mg at 10/16/23 0820 [Transfer Hold] dextrose (GLUTOSE) 40 % gel 15 g, 15 g, oral, Q15 Min PRN OR [Transfer Hold] dextrose (D10W) 10% bolus 250 mL, 250 mL, intravenous, Q15 Min PRN Dianeal low calcium-dextrose 2.5 % 6,000 mL dialysis solution, , intraperitoneal, Continuous, New Bag at 10/16/231852 Dianeal low calcium-dextrose 2.5 % 6,000 mL dialysis solution, , intraperitoneal, Continuous, New Bag at 10/16/231852 [Transfer Hold] ergocalciferol (VITAMIN D) capsule 50,000 Units, 50,000 Units, oral, Weekly, 50,000Units at 10/14/23 1228 [Transfer Hold] ezetimibe (ZETIA) tablet 10 mg, 10 mg, oral, Daily, 10 mg at 10/16/23 0819 [Transfer Hold] famotidine (PEPCID) tablet 20 mg, 20 mg, oral, Nightly, 20 mg at 10/16/23 214 [Transfer Hold] gemfibroziL (LOPID) tablet 600 mg, 600 mg, oral, BID AC (bkfst, lunch), 600 mg at 10/16/23 122 [Transfer Hold] gentamicin (GARAMYCIN) 0.1 % cream, , topical, Daily, Given at 10/16/231852 [Transfer Hold] glucagon injection 1 mg, 1 mg, intramuscular, Q30 Min PRN [Transfer Hold] heparin 5,000 unit/mL injection 2,000 Units, 2,000 Units, intravenous, Q6H PRN OR [Transfer Hold] heparin 5,000 unit/mL injection 3,000 Units, 3,000 Units, intravenous, Q6H PRN, 3,000 Units at 10/14/23 1459 heparin in 0.45% sodium chloride 25,000 units/250 mL (100 units/mL) infusion (premix), 0-33 Units/kg/hr, intravenous, Titrated, Last Rate: 14.9 mL/hr at 10/17/23 0427, 12.1 Units/kg/hr at 10/17/23 0427 [Transfer Hold] insulin glargine (LANTUS, SEMGLEE) 100 unit/mL injection 15 Units, 15 Units, subcutaneous, Nightly [Transfer Hold] insulin glargine (LANTUS, SEMGLEE) 100 unit/mL injection 20 Units, 20 Units, subcutaneous, QAM, 20 Units at 10/16/23 08 [Transfer Hold] insulin lispro (HumaLOG, ADMELOG) 100 unit/mL injection 0-10 Units, 0-10 Units, subcutaneous, TID with meals, 6 Units at 10/16/23 0820 [Transfer Hold] insulin lispro (HumaLOG, ADMELOG) 100 unit/mL injection 0-4 Units, 0-4 Units, subcutaneous, Nightly [Transfer Hold] insulin lispro (HumaLOG, ADMELOG) 100 unit/mL injection 0-5 Units, 0-5 Units, subcutaneous, TID with meals [Transfer Hold] insulin lispro (HumaLOG, ADMELOG) 100 unit/mL injection 10 Units, 10 Units, subcutaneous, TID with meals, 10 Units at 10/16/23 1733 [Transfer Hold] isosorbide mononitrate ER (IMDUR) extended release tablet 60 mg, 60 mg, oral, Daily, 60 mg at 10/16/23 0818 [Transfer Hold] metoprolol tartrate (LOPRESSOR) immediate release tablet 25 mg, 25 mg, oral, Q12H, 25 mg at 10/16/23 1223 [Transfer Hold] NIFEdipine (PROCARDIA XL/ADALAT CC) extended release tablet 90 mg, 90 mg, oral, Daily, 90 mg at 10/16/23 0819 [Transfer Hold] ondansetron ODT (ZOFRAN-ODT) disintegrating tablet 4 mg, 4 mg, oral, Q6H PRN OR[Transfer Hold] ondansetron (ZOFRAN) injection 4 mg, 4 mg, intravenous, Q6H PRN [Transfer Hold] pantoprazole DR (PROTONIX) extended release tablet 40 mg, 40 mg, oral, Daily, 40 mgat 10/16/23 0819 [Transfer Hold] polyethylene glycol (MIRALAX) packet 17 g, 17 g, oral, Daily PRN, 17 g at 10/15/23 0849 [Transfer Hold] ramelteon (ROZEREM) tablet 8 mg, 8 mg, oral, Nightly PRN [Transfer Hold] ranolazine ER (RANEXA) extended release tablet 500 mg, 500 mg, oral, BID, 500 mg at10/16/232141 [Transfer Hold] sodium chloride 0.9% flush 0.5-20 mL, 0.5-20 mL, intra-catheter, Q8H ASHLEY, 10 mL at 10/16/232141 [Transfer Hold] sodium chloride 0.9% flush 0.5-20 mL, 0.5-20 mL, intra-catheter, PRN sodium chloride 0.9% infusion, 50 mL/hr, intravenous, Continuous, Last Rate: 50 mL/hr at 10/17/23 0045, 50 mL/hr at 10/17/23 0045 sodium chloride 0.9% infusion, 10 mL/hr, intravenous, Continuous PRN [Transfer Hold] torsemide (DEMADEX) tablet 100 mg, 100 mg, oral, Daily, 100 mg at 10/16/23 0819 vancomycin 2,000 mg/520 mL in sodium chloride 0.9% (premix) 2,000 mg, 2,000 mg, intravenous, Once Social History Tobacco Use Smoking Status Never Smokeless Tobacco Former Alcohol Use: Not At Risk (06/07/2022) AUDIT-C Frequency of Alcohol Consumption: Monthly or less Average Number of Drinks: 3 or 4 Frequency of Binge Drinking: Never Substance and Sexual Activity Drug Use No Family History Problem Relation Age of Onset Heart attack Father Vitals: 10/17/23 0015 10/17/23 0020 10/17/23 0312 BP: 120/65 126/65 Pulse: 56 57 55 Resp: Temp: 36.8 ??C (98.2 ??F) SpO2: 93% 90% 94% PT: 10/14/2023: 13.5 sec INR: 10/14/2023: 1.18 APTT: 10/17/2023: 92 sec (H) Hgb A1C: 10/16/2023: 8.1 % (H) CBC RBC: 10/17/2023: 3.04 M/cumm (L) RDW: No results found for requested labs within last 30 days. MCHC: 10/17/2023: 32.8 g/dL MCH: 10/17/2023: 29.6 pg MCV: 10/17/2023: 90.1 fL Hct: 10/17/2023: 27.4 % (L) Hgb: 10/17/2023: 9.0 g/dL (L) WBC: 10/17/2023: 9.7 K/cumm MPV: 10/17/2023: 10.7 fL Platelets: 10/17/2023: 289 K/cumm RDW CV: 10/17/2023: 14.7 % RDW Sd: 10/17/2023: 46.4 fL BMP Glucose: 10/17/2023: 307 mg/dL (H) Calcium: 10/15/2023: 8.2 mg/dL (L) Sodium: 10/15/2023: 130 mmol/L (L) Potassium: 10/15/2023: 4.3 mmol/L CO2: 10/15/2023: 22 mmol/L Chloride: 10/15/2023: 89 mmol/L (L) BUN: 10/15/2023: 78 mg/dL (H) Creatinine: 10/15/2023: 10.57 mg/dL (H) DOS Physical Exam Medical history, medications, and allergies reviewed. Attestation: This PAT evaluation 10/17/2023. Airway Exam: Cervical ROM: FROM Cardiovascular Exam: Rate: regular Rhythm: regular Pulmonary Exam: LCTA, bilat EENT Exam: trachea midline Dental Exam: Appears intact Skin Exam: Skin is warm. Turgor is normal. Abdominal Exam: Abdomen is soft. Current state: Patient's current state is cooperative. Anesthesia Plan ASA 4 Planned anesthesia: General Invasive Monitors Planned: Invasive monitors planned: arterial line, central venous catheter, pulmonary artery catheter and LEIA. Induction: Induction: intravenous. Postoperative Plan: Postoperative administration opioids intended. Postoperative mechanical ventilation intended. Patient's planned disposition post procedure is ICU. Informed Consent: Anesthesia plan and risks discussed with patient. Consent and Attending signature: I and/or my designee have discussed the anesthesia plan, benefits, possible alternatives, parental presence at time of induction (if indicated), and clinically relevant risks that may include dental injury, unintentional awareness, and/or other complications. The patient and/or parent/legal guardian understand, and agree to proceed. All questions answered. PROCESS HEAD MILLER PROCESS HEAD MILLER PROCESS HEAD MILLER documented in this encounter Miscellaneous Notes * Addendum Note - Ayden Alan MD - 10/18/2023 10:55 AM CST Addendum created 10/18/23 1055 by Ayden Alan MD Intraprocedure Meds edited (Anesthesia) PROCESS HEAD MILLER * Post-Perfusion - Chang Stout, CCP - 10/17/2023 12:33 PM CST schMedications midazolam (mg) Date/Time Rate/Dose/Volume Action Admin User Audit 10/17/23 0803 2 mg Given Ayden Alan MD 0847 3 mg Given Ayden Alan MD fentaNYL (mcg) Date/Time Rate/Dose/Volume Action Admin User Audit 10/17/23 0803 150 mcg Given Ayden Aaln MD 0847 100 mcg Given Ayden Alan MD 0920 250 mcg Given Ayden Alan MD 0948 250 mcg Given Ayden Alan MD 1011 250 mcg Given Ayden Alan MD rocuronium (mg) Date/Time Rate/Dose/Volume Action Admin User Audit 10/17/23 0804 100 mg Given Ayden Alan MD 0946 50 mg Given Ayden Alan MD 1150 30 mg Given Ayden Alan MD protamine (mg) Date/Time Rate/Dose/Volume Action Admin User Audit 10/17/23 1209 500 mg Given Ayden Alan MD insulin regular (Units) Date/Time Rate/Dose/Volume Action Admin User Audit 10/17/23 0940 45,000 Units Given Ayden Alan MD 0949 5,000 Units Given Ayden Alan MD 1012 5 Units Given Ayden Alan MD 1040 5 Units Given Ayden Alan MD insulin regular infusion (Units/hr) Date/Time Rate/Dose/Volume Action Admin User Audit 10/17/23 0843 2 Units/hr - 2 mL/hr New Bag Ayden Alan MD norepinephrine infusion (mcg/kg/min) Dosing weight: 126.2 Date/Time Rate/Dose/Volume Action Admin User Audit 10/17/23 0825 0.03 mcg/kg/min - 7.099 mL/hr New Bag Ayden Alan MD 1143 0.05 mcg/kg/min - 11.831 mL/hr Rate Change Ayden Alan MD DOBUTamine (mcg/kg/min) Dosing weight: 126.2 Date/Time Rate/Dose/Volume Action Admin User Audit 10/17/23 1143 5 mcg/kg/min - 9.465 mL/hr Ayden Antony MD ceFAZolin (mg) Date/Time Rate/Dose/Volume Action Admin User Audit 10/17/23 0834 3,000 mg Given Ayden Alan MD propofol (mg) Date/Time Rate/Dose/Volume Action Admin User Audit 10/17/23 0804 60 mg Ayden Antony MD propofol (mcg/kg/min) Dosing weight: 126.2 Date/Time Rate/Dose/Volume Action Admin User Audit 10/17/23 0840 25 mcg/kg/min - 18.93 mL/hr Ayden Antony MD phenylephrine (JOAQUÍN-SYNEPHRINE) injection (mcg) Date/Time Rate/Dose/Volume Action Admin User Audit 10/17/23 1007 300 mcg Given Girish, Chang, CCP 1011 300 mcg Given Girish, Chang, CCP 1015 300 mcg Given Girish, Chang, CCP 1018 300 mcg Given Girish, Chang, CCP 1023 300 mcg Given Girish, Chang, CCP 1032 300 mcg Given Girish, Chang, CCP 1039 300 mcg Given Girish, Chang, CCP 1148 300 mcg Given Girish, Chang, CCP anticoagulant citrate dextrose solution A injection (mL) Date/Time Rate/Dose/Volume Action Admin User Audit 10/17/23 0847 1,000 mL Given Girish, Chang, CCP mannitol 26 mL, lidocaine (cardiac) (XYLOCAINE) 13 mL, magnesium sulfate 8 mL solution (mL) Date/Time Rate/Dose/Volume Action Admin User Audit 10/17/23 1203 31 mL - 31 mL New Bag Girish Chang, CCP heparin injection 1,000 unit/mL (Units) Date/Time Rate/Dose/Volume Action Admin User Audit 10/17/23 1019 10,000 Units (over 1 min) New Bag Girish, Chang, CCP 1031 10,000 Units (over 1 min) Bolus Girish, Chang, CCP 1100 10,000 Units Bolus Girish, Chang, CCP potassium chloride 2 mEq/mL (ARREST SOLUTION) (mEq) Date/Time Rate/Dose/Volume Action Admin User Audit 10/17/23 1146 46 mEq Given Girish, Chang, CCP Lactated Ringer's (LR) 1,000 mL with albumin 100 mL, heparin 10 mL, mannitol 25 g solution (mL) Date/Time Rate/Dose/Volume Action Admin User Audit 10/17/23 1006 1,000 mL - 1,000 mL New Bag Girish, Chang, CCP sodium bicarbonate injection 1 mEq/mL (mEq) Date/Time Rate/Dose/Volume Action Admin User Audit 10/17/23 1019 50 mEq - 50 mL Given Girish, Chang, CCP 1030 25 mEq - 25 mL Given Girish, Chang, CCP 1034 25 mEq - 25 mL Given Girish, Chang, CCP 1124 25 mEq - 25 mL Given Girish, Chang, CCP calcium chloride (g) Date/Time Rate/Dose/Volume Action Admin User Audit 10/17/23 1203 1 g Given Ayden Alan MD albumin 5 % (mL) Date/Time Rate/Dose/Volume Action Admin User Audit 10/17/23 1045 New Bag Girish, Chang, CCP 1047 250 mL Stopped Girish Chang, CCP PLATELETS - CROSSMATCHED [id number] (mL) Date/Time Rate/Volume Action Admin User Audit 10/17/23 1224 New Bag Ayden Alan MD 1225 200 mL Stopped Ayden Alan MD FFP - CROSSMATCHED [id number] 24 [id number] (mL) Date/Time Rate/Volume Action Admin User Audit 10/17/23 1203 New Bag Ayden Alan MD 1204 277 mL Stopped Ayden Alan MD [id number] 24 [id number] (mL) Date/Time Rate/Volume Action Admin User Audit 10/17/23 1203 New Bag Ayden Alan MD 1204 242 mL Stopped Ayden Alan MD CRYOPRECIP - CROSSMATCHED [id number] 23 [id number] (mL) Date/Time Rate/Volume Action Admin User Audit 10/17/23 1204 New Bag Ayden Alan MD 1205 85 mL Stopped Ayden Alan MD [id number] 24 [id number] (mL) Date/Time Rate/Volume Action Admin User Audit 10/17/23 1205 New Bag Ayden Alan MD 1206 88 mL Stopped Ayden Alan MD PRBC - CROSSMATCHED [id number] 24 [id number] (mL) Date/Time Rate/Volume Action Admin User Audit 10/17/23 1209 New Bag Ayden Alan MD 1210 250 mL Stopped Ayden Alan MD Events Date Time Event 10/17/2023 0639 Ready for Procedure 0803 Anesthesia Start 0803 Patient in Room 0803 Start Data Collection 0804 Perfusion Ready 0804 Start data Collection 0804 Induction The patient was reevaluated immediately before moderate or deep sedation use and before anesthesia induction. 0806 Intubation 0840 LEIA placed 0842 Anesthesia Ready 0847 Incision Start 1002 CO2 On 3 lpm 1006 CPB ON Arterial 24 fr Venous [id number] fr Cdpg kbc 1006 Cooling Start 1006 Ultrafiltration On 1013 Aortic Clamp ON 1030 Cooling Stop 1042 Flow Up Per Surgeon nassar 1130 Rewarming Start 1146 Aortic Clamp OFF 1146 CO2 Off 1203 CPB OFF 1203 Ultrafiltration Off 1203 Rewarming Stop Cpb 118 mins Aox 93 mins Conduit Cor target 1 Cor target 2 Connected Flow (ml/min) PI nassar lad 68 1.8 svg pda 84 1.7 svg om 143 2.0 Cosigned by Lorne Mcnulty MD at 10/17/2023 5:16 PM WET PROCESS HEAD MILLER PROCESS HEAD MILLER PROCESS HEAD MILLER documented in this encounter Plan of Treatment Not on file documented as of this encounter Procedures Procedure Name Priority Date/Time Associated Diagnosis Comments AK AN PROCEDURE PLACEHOLDER Routine 10/17/2023 9:31 AM WET PROCESS HEAD MILLER AK AN PROCEDURE PLACEHOLDER Routine 10/17/2023 8:56 AM WET PROCESS HEAD MILLER AK AN CENTRAL LINE QUADRUPLE LUMEN Routine 10/17/2023 8:56 AM WET PROCESS HEAD MILLER AK AN PROCEDURE PLACEHOLDER Routine 10/17/2023 8:55 AM WET PROCESS HEAD MILLER PULMONARY ARTERY CATH Routine 10/17/2023 8:55 AM WET PROCESS HEAD MILLER BW AN SHEATH INTRODUCER PERFORMABLE Routine 10/17/2023 8:55 AM WET PROCESS HEAD MILLER AK AN PROCEDURE PLACEHOLDER Routine 10/17/2023 8:54 AM WET PROCESS HEAD MILLER AK AN PROCEDURE PLACEHOLDER Routine 10/17/2023 8:53 AM WET PROCESS HEAD MILLER AK AN ELECTIVE ENDOTRACHEAL AIRWAY Routine 10/17/2023 8:53 AM WET PROCESS HEAD MILLER documented in this encounter Results * AK AN PROCEDURE PLACEHOLDER (10/17/2023 9:31 AM WET PROCESS HEAD MILLER) Anatomical Region Laterality Modality Other Narrative 10/17/2023 9:31 AM WET PROCESS HEAD MILLER Ayden Alan MD ? 10/17/2023 ??9:39 AM LEIA Date/time: 10/17/2023 9:31 AM Staff: Supervising anesthesiologist: Ayden Alan MD Performed by: Anesthesiologist: Ayden Alan MD 1st PRESS WORKER HELPER: Ravi Thacker CRNA Preprocedure checklist: patient identified, procedure contraindications assessed, procedure consent, risks, benefits and alternatives discussed, monitors and equipment checked, timeout performed and LEIA probe inserted into esophagus using lubricating jelly General procedure Information: Reason for procedure/indications: assessment of surgical repair Performed: personally Procedure performed at surgeon's request: yes Results discussed with surgeon: yes Images submitted to archive: ??yes Patient location: OR Intubated: yes Bite blocked placed: yes Probe Insertion: easy Complications: no Probe type: adult Modalities: 2D imaging, 3D imaging, continuous wave Doppler, pulsed wave Doppler and color Doppler Billing information: Physician requesting echo: Lorne Mcnulty MD CPT code: LEIA placement and diagnostic exam, non-congenital (54266) ICD code(s) for medical necessity: I35.2 - [...] inferior: hypokinetic 16- Apical septal: hypokinetic 17- [place]: hypokinetic Valves: Aortic Valve: Annulus: calcified Leaflet [...] valve: Annulus: normal Stenosis: none Regurgitation: trace ([place] is transvalvular) Aorta: Ascending aorta: Size: [...] he or she has personally reviewed and interpreted the echocardiogram and has reviewed and or edited and agrees with the written comments contained within the report. Ayden Alan MD ANESTHESIA ORDERABLES Final Re sult * AK AN CENTRAL LINE QUADRUPLE LUMEN, AK AN PROCEDURE PLACEHOLDER (10/17/2023 8:56 AM WET PROCESS HEAD MILLER) Narrative Ayden Alan MD - 10/17/2023 8:56 AM WET PROCESS HEAD MILLER Ayden Alan MD ? 10/17/2023 ??8:57 AM Central Venous Line Patient location: OR Indication: central venous access and CVP monitoring Staff: Supervising provider: Ayden Alan MD Placed by: PRESS WORKER HELPER: Ravi Thacker CRNA Procedure prep: Patient position: Trendelenburg. PPE: provider hand hygiene, provider hat/mask, sterile gloves, sterile gown and full body drape. Prep solution: other was applied to area. Ultrasound Evaluation: Ultrasound was prepped into field. Central line: Laterality: right Site: internal jugular Catheter type: quad lumen Catheter size: 8.5 Fr. Catheter length: 16 cm Technique: wire threaded easily, anatomy identified with surface landmarks, anatomy identified with ultrasound, vein located with finder needle, Seldinger technique and wire removed intact Venous verification: manometry, ultrasound confirmation and LEIA confirmation Post insertion: all ports aspirated, all ports flushed easily, line sutured in place and occlusive dressing applied Number of attempts: 1 Assessment: Events: patient tolerated procedure well with no complications Ayden Alan MD ANESTHESIA ORDERABLES Final Re sult * BW AN SHEATH INTRODUCER PERFORMABLE, PULMONARY ARTERY CATH, AK AN PROCEDURE PLACEHOLDER (48:55 AM WET PROCESS HEAD MILLER) Narrative Ayden Alan MD - 10/17/2023 8:55 AM WET PROCESS HEAD MILLER Ayden Alan MD ? 10/17/2023 ??8:56 AM Central Venous Line Patient location: OR Indication: central venous access and CVP monitoring Staff: Supervising provider: Ayden Alan MD Placed by: PRESS WORKER HELPER: Ravi Thacker CRNA Procedure prep: Patient position: Trendelenburg. PPE: provider hand hygiene, provider hat/mask, sterile gloves, sterile gown and full body drape. Prep solution: other was applied to area. Ultrasound Evaluation: Ultrasound was prepped into field. Central line: Laterality: right Site: internal jugular Catheter type: introducer sheath Catheter size: 9 Fr. Catheter length: 10 cm Technique: anatomy identified with surface landmarks, anatomy identified with ultrasound, vein located with finder needle, Seldinger technique, wire threaded easily and wire removed intact Venous verification: manometry, ultrasound confirmation and LEIA confirmation Post insertion: all ports aspirated, all ports flushed easily, line sutured in place and occlusive dressing applied Number of attempts: 1 PA catheter placement: PA catheter type: non-oximetric PA catheter size: 7.5 Fr PA catheter laterality: right PA catheter site: internal jugular Placement guided by: pressure tracing changes PA catheter depth 46 cmNo Assessment: Events: patient tolerated procedure well with no complications us Ayden Alan MD ANESTHESIA ORDERABLES Final Re sult * AK AN PROCEDURE PLACEHOLDER (10/17/2023 8:54 AM WET PROCESS HEAD MILLER) Ayden Barahona MD - 10/17/2023 8:54 AM WET PROCESS HEAD MILLER Ayden Alan MD ? 10/17/2023 ??8:55 AM Arterial Line Patient location: OR Indication: continuous blood pressure monitoring and blood sampling needed Staff: Supervising provider: Ayden Alan MD Placed by: PRESS WORKER HELPER: Ravi Thacker CRNA Procedure prep: Prep solution: other Prep: provider hat/mask Arterial line: Catheter size: 20 gauge Catheter length: 1 and 3/4 inch Catheter type: wire-guided catheter Seldinger technique: yes Laterality: right Site: radial artery Line secured: tape and Tegaderm Results: good waveform and good blood return Number of attempts: 1 Assessment: Events: patient tolerated procedure well with no complications us Ayden Alan MD ANESTHESIA ORDERABLES Final Re sult * AK AN ELECTIVE ENDOTRACHEAL AIRWAY, AK AN PROCEDURE PLACEHOLDER (10/17/2023 8:53 AM WET PROCESS HEAD MILLER) Ayden Barahona MD - 10/17/2023 8:53 AM WET PROCESS HEAD MILLER Ayden Alan MD ? 10/17/2023 ??8:54 AM Airway Patient location: OR Urgency: elective Indications for airway management: anesthesia Difficult airway: no Staff: Placed by: Anesthesiologist: Ayden Alan MD Emergent airway documentation: Risks and benefits discussed: yes Consent obtained: yes Consent given by: patient Airway prep: Preoxygenated: yes Patient position: sniffing Mask difficulty assessment: 1 - vent by mask Sedation level during airway: GA Final airway details: Final airway type: endotracheal airway Tube type: ETT ETT size: 8.0 mm Cuffed: yes Technique used for successful ETT placement: video laryngoscopy Insertion site: oral Blade type: Breann Video blade type: Morales Blade size: 3 Cormack-Lehane (direct): grade I - full view of glottis Cuff inflated with: air Placement verified by: auscultation and CO2 detection Airway secured with: silk tape Number of attempts: 1no Ayden Alan MD ANESTHESIA ORDERABLES Final Re sult documented in this encounter Visit Diagnoses Not on filedocumented in this encounter Administered Medications Inactive Administered Medications - up to 3 most recent administrations Medication Order MAR Action Action Date Dose Rate Site albumin 5 % bottle intravenous, Continuous PRN, Starting on Mon10/17/23 at 1045, Anesthesia Intra-op New Bag 10/17/2023 10:45 AM WET PROCESS HEAD MILLER calcium chloride IV syringe intravenous, As needed, Starting on Mon10/17/23 at 1203, Anesthesia Intra-op Given 10/17/2023 12:03 PM WET PROCESS HEAD MILLER 1 g ceFAZolin (ANCEF) injection intravenous, Administer over 3 Minutes, As needed, Starting on Mon10/17/23 at 0834, Anesthesia Intra-op Given 10/17/2023 1:00 PM WET PROCESS HEAD MILLER 3,000 mg Given 10/17/2023 8:34 AM WET PROCESS HEAD MILLER 3,000 mg citrate dextrose solution (ACD-A) infusion intravenous, As needed, Starting on Mon10/17/23 at 0847, Anesthesia Intra-op Given 10/17/2023 8:47 AM WET PROCESS HEAD MILLER 1,000 mL DOBUTamine in dextrose 5% (DOBUTREX) 1,000 mg/250 mL (4,000 mcg/mL) infusion (premix) intravenous, Continuous PRN, Starting on Mon10/17/23 at 1143, Anesthesia Intra-op New Bag 10/17/2023 11:43 AM WET PROCESS HEAD MILLER 5 mcg/kg/min 9.465 mL/hr fentaNYL (SUBLIMAZE) preservative free injection intravenous, As needed, Starting on Mon10/17/23 at 0803, Anesthesia Intra-op Given 10/17/2023 10:11 AM WET PROCESS HEAD MILLER 250 mcg Given 10/17/2023 9:48 AM WET PROCESS HEAD MILLER 250 mcg Given 10/17/2023 9:20 AM WET PROCESS HEAD MILLER 250 mcg heparin 1,000 unit/mL injection intravenous, As needed, Starting on Mon10/17/23 at 1019, Anesthesia Intra-op Bolus 10/17/2023 11:00 AM WET PROCESS HEAD MILLER 10,000 Units Bolus 10/17/2023 10:31 AM WET PROCESS HEAD MILLER 10,000 Units New Bag 10/17/2023 10:19 AM WET PROCESS HEAD MILLER 10,000 Units heparin 1,000 unit/mL injection intravenous, As needed, Starting on Mon10/17/23 at 0940, Anesthesia Intra-op Bolus 10/17/2023 9:49 AM WET PROCESS HEAD MILLER 5,000 Units New Bag 10/17/2023 9:40 AM WET PROCESS HEAD MILLER 45,000 Units insulin regular (HumuLIN R, NovoLIN R) 100 unit/mL injection intravenous, As needed, Starting on Mon10/17/23 at 0940, Anesthesia Intra-op Given 10/17/2023 10:40 AM WET PROCESS HEAD MILLER 5 Unit s Given 10/17/2023 10:12 AM WET PROCESS HEAD MILLER 5 Units insulin regular in 0.9% sodium chloride (MYXREDLIN) 100 unit/100 mL (1 unit/mL) infusion (premix) intravenous, Continuous PRN, Starting on Mon10/17/23 at 0843, Anesthesia Intra-op New Bag 10/17/2023 8:43 AM WET PROCESS HEAD MILLER 2 Units/hr 2 mL/hr Lactated Ringer's (LR) 1,000 mL with albumin 100 mL, heparin 10 mL, mannitol 25 g solution intravenous, Continuous PRN, Starting on Mon10/17/23 at 1006, Anesthesia Intra-op New Bag 10/17/2023 10:06 AM WET PROCESS HEAD MILLER 1,000 mL mannitol 26 mL, lidocaine (cardiac) (XYLOCAINE) 13 mL, magnesium sulfate 8 mL solution intravenous, Continuous PRN, Starting on Mon10/17/23 at 1203, Anesthesia Intra-op New Bag 10/17/2023 12:03 PM WET PROCESS HEAD MILLER 31 mL midazolam (VERSED) 1 mg/mL preservative free injection intravenous, Administer over 2 Minutes, As needed, Starting on Mon10/17/23 at 0803, Anesthesia Intra-op Given 10/17/2023 8:47 AM WET PROCESS HEAD MILLER 3 mg Given 10/17/2023 8:03 AM WET PROCESS HEAD MILLER 2 mg norepinephrine in dextrose 5% (LEVOPHED) 8,000 mcg/250 mL (32 mcg/mL) infusion (premix) intravenous, Continuous PRN, Starting on Mon10/17/23 at 0825, Anesthesia Intra-op Rate/Dose Change 10/17/2023 11:43 AM WET PROCESS HEAD MILLER 0.05 mcg/kg/min 11.831 mL/hr New Bag 10/17/2023 8:25 AM WET PROCESS HEAD MILLER 0.03 mcg/kg/min 7.099 mL /hr phenylephrine (JOAQUÍN-SYNEPHRINE) injection intravenous, As needed, Starting on Mon10/17/23 at 1148, Anesthesia Intra-op Given 10/17/2023 11:48 AM WET PROCESS HEAD MILLER 300 mc g Given 10/17/2023 10:39 AM WET PROCESS HEAD MILLER 300 mcg Given 10/17/2023 10:32 AM WET PROCESS HEAD MILLER 300 mcg potassium chloride 2 mEq/mL arrest solution intracardiac, As needed, Starting on Mon10/17/23 at 1146, Anesthesia Intra-op Given 10/17/2023 11:46 AM WET PROCESS HEAD MILLER 46 mEq propofoL (DIPRIVAN) 10 mg/mL IV intravenous, As needed, Starting on Mon10/17/23 at 0804, Anesthesia Intra-op New Bag 10/17/2023 8:04 AM WET PROCESS HEAD MILLER 60 mg propofoL (DIPRIVAN) 10 mg/mL IV intravenous, Continuous PRN, Starting on Mon10/17/23 at 0840, Anesthesia Intra-op New Bag 10/17/2023 8:40 AM WET PROCESS HEAD MILLER 25 mcg/kg/min 18.93 mL/hr protamine injection intravenous, As needed, Starting on Mon10/17/23 at 1209, Anesthesia Intra-op, Indications: Heparin ToxicityIndications:Heparin Toxicity Given 10/17/2023 12:09 PM WET PROCESS HEAD MILLER 500 mg rocuronium (ZEMURON) injection intravenous, As needed, Starting on Mon10/17/23 at 0804, Anesthesia Intra-op Given 10/17/2023 11:50 AM WET PROCESS HEAD MILLER 30 mg Given 10/17/2023 9:46 AM WET PROCESS HEAD MILLER 50 mg Given 10/17/2023 8:04 AM WET PROCESS HEAD MILLER 100 mg sodium bicarbonate 8.4 % (1 mEq/mL) injection intravenous, Administer over 5 Minutes, As needed, Starting on Mon10/17/23 at 1019, Anesthesia Intra-op Given 10/17/2023 11:24 AM [employer] 25 mEq Given 10/17/2023 10:34 AM [employer] 25 mEq Given 10/17/2023 10:30 AM [employer] 25 mEq Transfuse cryoprecipitate (pooled units) Timed New Bag 10/17/2023 12:04 PM [employer] Transfuse cryoprecipitate (pooled units) Timed New Bag 10/17/2023 12:05 PM [employer] Transfuse plasma Timed New Bag 10/17/2023 12:03 PM [employer] Transfuse plasma Timed New Bag 10/17/2023 12:03 PM [employer] Transfuse platelets Timed New Bag 10/17/2023 12:24 PM [employer] Transfuse RBC Timed New Bag 10/17/2023 12:09 PM W[employer] documented in this encounter Care Teams Fast Food Delivery Driver Relationship Specialty Start Date End Date Aditya Castro MD [address] [place] [address] PCP - General 10/17/19 documented as of this encounter
--- OUTSIDE RECORDS SUMMARY | 2024-08-18 13:08 | XMS_ITS | Encounter Summary ---
Author Organization [facility] Healthcare Address [address] [place] [address] Care Team Providers Care Sales Representative Public Utilities Name Role Phone Aditya Correa MD Primary Care Provider [phone] Reason for Visit * Auth/Cert Specialty Diagnoses / Procedures Referred By Aguilar t Referred To Contact Diagnoses CAD in [place] artery Needs CABG (12 or 1300) Procedures N Referral ID Status Reason Start Date Expiration Date Visits Re quested Visits Authorized [id number] 1 1 Encounter Details Date Type Department Care Team (Late st Contact Info) Description 10/17/2023 8:00 AM TROMPER - 10/17/2023 12:50 PM TROMPER Surgery [facility] Operating Room [address] [place] [address] Jaqueline Valero MD [address] [facility] [address] [place] [address] CORONARY ARTERY BYPASS GRAFT, AORTIC VALVE REPLACEMENT Surgery Details Date/Time Status Location OR Service Patient Class Case Class Case Type Trauma Case? 10/17/2023 8:00 AM Posted [facility] OPERATING ROOM OR Cardiothoracic Inpatient Elective Panel 1 Procedure LRB Anes Op Region Wound Class Comments CORONARY ARTERY BYPASS GRAFT, AORTIC VALVE REPLACEMENT N/A General Chest Class I - Clean 8:[address] Valero REPLACEMENT AORTIC VALVE N/A General Chest Class I - Clean Surgeon Surgeon Role Service Panel Jaqueline Valero MD Primary Cardiothoracic 1 documented in this encounter Social History Tobacco Use Types Packs/Day Years Used Date Smoking Tobacco: Never Smokeless Tobacco: Former Alcohol Use Standard Drinks/Week Comments No 0 (1 standard drink = 0.6 oz pur e alcohol) [facility] Utilities Answer Date Recorded In [...] often do you attend chur ch or religion services? 1 to 4 times per year [...] place to sleep or slept in a mcc (including now)? No 10/16/2023 Personal Safety Answer Date Recorded Have you ever been in or are you currently in a harmful physical or emotional relationship or is someone making you feel afraid or unsafe? 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 Male 3:42 AM TROMPER Gender Identity Not on file Sexual Orientation Not on file documented as of this encounter Last Filed Vital Signs Vital Sign Reading Time Taken Comments Blood Pressure 118/59 10/17/2023 7:16 AM TROMPER Pulse 60 10/17/2023 7:22 AM TROMPER Temperature 36.8 ??C (98.2 ??F) 10/17/2023 1 2:15 AM TROMPER Respiratory Rate 12 10/17/2023 7:16 AM TROMPER Oxygen Saturation 96% 10/17/2023 7:16 AM TROMPER Inhaled Oxygen Concentration - - Weight 126.2 kg (278 lb 3.5 oz) 10/16/2023 9:00 AM TROMPER Height 177.8 cm (5' 10 ) 10/13/2023 11: 22 PM TROMPER Body Mass Index 39.48 10/17/2023 12:52 PM TROMPER documented in this encounter Discharge Summaries * Guerline Rodriguez PA - 11/03/2023 2:32 PM CDT DISCHARGE SUMMARY Patient Name: Juvenal Michael Garvin Jr. Attending Provider: Jaqueline Valero MD Admission Date: 10/13/2023 Discharge Date: 11/03/2023 Principal Problem(s) Severe multivessel coronary artery disease Moderate/severe aortic valve stenosis Secondary Problems Acute on chronic systolic heart failure Hypertension Hyperlipidemia Type 1 diabetes mellitus ESRD on peritoneal dialysis Paroxysmal atrial fibrillation Sleep apnea Obesity GERD Acute blood loss anemia due to surgery Hyponatremia Left lower extremity cellulitis JODEE Garvin is a 53-year-old male who has been transferred to [facility] for consideration of coronary artery bypass grafting and aortic valve replacement. His past medical history includes severe CAD with previous PCI, paroxysmal atrial fibrillation, type 1 diabetes mellitus, ESRD on peritoneal dialysis, hypertension, hyperlipidemia, and sleep apnea. He presented to [facility] in [place], [place] on 10/09/23 complaining of fatigue, malaise, [...] the catheterization. He has been transferred to [facility] for consideration of coronary artery bypass and [...] PUMP: Continue Omnipod 5 insulin pump with Ozmosis G6 CGM at home settings: TIME BASAL RATE TOTAL BASAL DAILY DOSE: 65.85 0330 1.7 units/hour 0800 0.8 units/hour 2000 5.8 units/hour Commonly known as: HumaLOG, ADMELOG levothyroxine 25 mcg tablet Take 1 tablet (25 mcg total) by mouth steward/stewardess economy class before breakfast Commonly known as: SYNTHROID Start [...] REDNESS OR DRAINAGE OF INCISIONS OR FEVERS [phone] Diet Instructions Adult Discharge Diet Diet Type: Restrict salt intake to less than 4000 mg per day Low fat intake Diabetic renal diet. Heart healthy diet. Limit foods high in Vitamin K while taking Coumadin. High protein intake. Other Instructions Ambulatory referral to Home Health Service Line: Home Health Primary disciplines requested: [facility]: Disease and Medication Management [...] tape over incisions 10-14 days post op, mainoriel INR called to dr valero office with [...] Center 11/22/2023 9:30 AM Jaqueline Valero MD [facility] [id number] PSA Contact Information for Follow-ups [facility] Home Care Services Specialty: Home Health and Hospice [address] [facility] [address] Next Steps: Follow up Questions: Service Line: Home Health Primary disciplines requested: [facility]: Disease and Medication Management [...] Family Medicine Relationship: PCP - General [address] [facility] [id number] Next Steps: Follow up Comments: Follow up with established provider: 4 weeks Questions: To provider: ADITYA CORREA [facility] [address] [place] [id number] Next Steps: Follow up Comments: Dr. Valero is patient's Cardiothoracic Surgeon and will not be managing patient during Cardiac Rehab. Please contact patient's established Watershed Coordinator, Dr. Hamlet Ortega, for additional information. Questions: Please select the performing region: External Order To loc/pos: [facility] Inpatient POS Select a phase: Phase 2 # of visits: 1 Referral Status: External - Ready to Schedule Cosigned by Jaqueline Valero MD at 11/04/2023 2:05 PM CDT documented in this encounter Discharge Instructions * Discharge Instr - Diet* Carly Spencer RD - 10/20/2023 3:29 PM TROMPER Diabetic renal diet. Heart healthy diet. Limit foods high in Vitamin K while taking Coumadin. High protein intake. PER PER * Attachments The following attachments cannot be sent through Care Everywhere. * CABG (Coronary Artery Bypass Graft) (Discharge Care) (Mauritian) * Transcatheter Aortic Valve Replacement (Discharge Care) (Mauritian) * Sternal Precautions (Parliamentary Librarian) (Mauritian) * Warfarin (By mouth) (Mauritian) documented in this encounter Medications at Time [...] units/hour 0800 0.8 units/hour 1999 5.8 units/hour 06/29/2022 ketoconazole (NIZORAL) 2 % shampoo APPLY EXTERNALLY 2 TO 3 TIMES EVERY WEEK NEEDED 04/23/2019 levothyroxine (SYNTHROID) 25 mcg tabletIndications:hy pothyroidism Take 1 tablet (25 mcg total) by mouth steward/stewardess economy class before breakfast 30 tablet 1 11/04/2023 Linzess [...] (20 mg total) by mouth daily peg 589-lcojvppsohkv-rxz cerin (ARTIFICAL TEARS) 1-0.2-0.2 % ophthalmic solution [...] 1 tablet (25 mcg total) by mouth steward/stewardess economy class before breakfast 30 tablet 1 11/04/2023 HYDROcodone-acetamin [...] documented in this encounter Progress Notes * Giuseppe Patino, RD - 11/03/2023 4:22 PM CDT Nutrition Follow-up Progress Note Encounter Date: 11/03/23 4:22 PM Nutrition Progress Summary: Patient is a 53 y.o. male. Admit Dx: CAD in [place] artery [I25.10]. Admitted on 10/13/2023. Patient's intake is adequate. Objective Dietary Orders (From admission, onward) Start Ordered 10/26/23 1235 Adult Diet Restricted; Consistent Carbohydrate; Renal; 1000mL = Diet 700/Nursing 300 Diet effective now Question Answer Comment ([facility]) Diet type Restricted Diabetic: Consistent Carbohydrate Renal: [...] Review: Scheduled Meds: al & mag hydroxide jquubkxmqbn-qjdtedqbkrqazct-tcmqyfnly-nystatin, 20 mL, swish & swallow, Q6H amiodarone, [...] heparin, 0-33 Units/kg/hr, Last Rate: Stopped (11/03/23 1453) INSULIN SUBCUTANEOUS PUMP insulin lispro, 0-25 Units [...] of Weight Used for Estimated Protein : [place] Protein Needs Based on g/k.4 Total Protein Estimated Needs (gm): 105.42 Kcal/kg Type of Weight Used for Estimated Kcals: [place] Kcal/k Total Kcal/kg Estimated Needs : 2259 [...] carbohydrate and renal diet. Plan: Added supervisor production managing check to pt's diet to help with [...] ESRD on peritoneal dialysis initially presented to [facility] in [facility] on October 09 for symptoms [...] regimen of PD Follow-up with his primary billing spec Fernandez Carranza MD [facility]: MD Chula Domínguez, MD Renny Flood PA Derek Larson, MD FASN Rose Mattli, NP Rohan Devanpalli, MD Candace Shirley, ROBERTO [address] [place], [place] [address] [phone] - Office [phone] - Fax * Nusrat Us [facility] - 11/03/2023 11:05 AM CDT Warfarin monitoring [...] 7.6 monitor for now Joselin Strickland MD [facility] SUBJECTIVE: Mr. Garvin is doing well overall. [...] Dose Route Frequency al & mag hydroxide yvzrqiqocsw-iqqohfqpwcubwgs-ubjgllrji-nystatin (MAGIC MOUTHWASH) oral suspension 1-1-1-1 20 mL [...] sternotomy healing well ASSESSMENT/PLAN: CAD - prior RI with multiple PCI - [facility] showed multivessel disease - LVEF dropped to [...] -venous doppler shows no DVT SHAMIKA Donald [facility] 11/03/2023 10:59 AM * [...] (276 lb 10.8 oz) SpO2 96% BMI 39.70kg/m?? 24hr Min/Max: Temp Min: 36.7 ??C (98.1 [...] yesterday Levothyroxine 25 mcg started per Endocrine [place] prn for pain control CPAP nightly Stress ulcer prophylaxis: Protonix DVT prophylaxis: coumadin dosing PT/OT Plan reviewed with LESLY Vallecillo 11/02/2023 * Nida Starr, AUTOMATIC DRILLING MACHINE OPERATOR - 11/02/2023 2:54 PM CDT Physical Therapy [...] Comments Incentive spirometer x 10 reps fom [id number] Transfer 1 Transfer From 1 Sit;Chair with [...] (from Physical Therapy) Active Problems Problem: PT [facility] Start Date: 10/21/23 Goal Start Date Expected End Date End Date PT LTG - [facility] 1 10/21/23 11/04/23 -- Goal Details: Patient will perform supine<>sit Independent. Goal Start Date Expected End Date End Date PT [facility] - [facility] 2 10/21/23 11/04/23 -- Goal Details: Patient will perform bed<>chair transfer Modified Independent with ww. Goal Start Date Expected End Date End Date PT [facility] - [facility] 3 10/21/23 11/04/23 -- Goal Details: Patient will ambulate 350 feet Modified Independent with wheeled walker. Goal Start Date Expected End Date End Date PT [facility] - [facility] 4 10/21/23 11/04/23 -- Goal Details: Patient [...] ESRD on peritoneal dialysis initially presented to [facility] in [facility] on October 09 for symptoms [...] Recent Labs Lab Units 11/02/23 0216 11/01/23 0209 10/31/23 0225 WBC K/cumm 5.0 5.9 6.6 HEMOGLOBIN g/dL 7.5* 7.7* 7.9* HEMATOCRIT % 24.5* 25.0* 25.5* PLATELETS K/cumm [phone] RFP: Recent Labs Lab Units 11/02/23 0216 11/01/23 0209 10/31/23 0225 10/30/23 0418 SODIUM mmol/L 128* 131* 131* 132* POTASSIUM PLASMA mmol/L 3.9 4.0 4.0 4.0 CHLORIDE mmol/L 89* 91* 91* 89* CO2 mmol/L 25 25 24 25 BUN SERUM mg/dL 86* [...] free T4, synthroid started Fernandez Carranza MD [facility]: MD Chula Domínguez, MD Renny Flood, MD STANISLAV Camacho, MD Shanda Pederson NP [address] [place], [place] [address] [phone] - Office [phone] - Fax * Pradeep Reeves NP - [...] Dose Route Frequency al & mag hydroxide grhnoihgnhh-xjkglsebuobojjt-kgbxdnjxg-nystatin (MAGIC MOUTHWASH) oral suspension 1-1-1-1 20 mL [...] sternotomy healing well ASSESSMENT/PLAN: CAD - prior RI with multiple PCI - [facility] showed multivessel disease - LVEF dropped to [...] -venous doppler shows no DVT SHAMIKA Donald [facility] 11/02/2023 12:53 PM * [...] and Vancomycin for left lower extremity cellulitis [place] prn for pain control CPAP nightly Stress [...] ESRD on peritoneal dialysis initially presented to [facility] in [facility] on October 09 for symptoms [...] a cardiology consultation which lead to a [facility]. Results were notable for severe CAD and [...] and alert CBC: Recent Labs Lab Units 11/01/23 02010/31/2322410/30/23417 WBC K/cumm 5.9 6.6 6.5 HEMOGLOBIN g/dL 7.7* 7.9* 7.6* HEMATOCRIT % 25.0* 25.5* 24.3* PLATELETS K/cumm [phone] RFP: Recent Labs Lab Units 11/01/23 02010/31/2322410/30/2341710/29/23 040 SODIUM mmol/L 131* 131* 132* 129* POTASSIUM PLASMA mmol/L 4.0 4.0 4.0 4.1 CHLORIDE mmol/L 91* 91* 89* 87* CO2 mmol/L 25 24 25 23 BUN SERUM mg/dL 89* 90* 93* [...] free T4, synthroid started Fernandez Carranza MD [facility]: MD Chula Domínguez, MD Renny Flood PA Derek Larson, MD FASN Rose Mattli, NP Rohan Devanpalli, MD Candace Shirley, ROBERTO [address] [place] [address] [phone] - Office [phone] - Fax * Sophia Peoples COTA - [...] permanent denture broke after biting into an armenian muffin. Incisional pain is well controlled. OBJECTIVE: [...] Dose Route Frequency al & mag hydroxide frdtvnzihci-impfdiacbmmfzxa-ixuokalzp-nystatin (MAGIC MOUTHWASH) oral suspension 1-1-1-1 20 mL [...] sternotomy healing well ASSESSMENT/PLAN: CAD - prior RI with multiple PCI - [facility] showed multivessel disease - LVEF dropped to [...] -venous doppler shows no DVT SHAMIKA Donald [facility] 11/01/2023 10:22 AM Agree with above note Feels better No chest pain BP stable S/P CABG, AVR ONX Om heparin and warfarin In sinus rhythm On antibiotics for cellulitis Patrick Almonte MD, FACC * Nusrat Us [facility] - 11/01/2023 9:40 AM CDT Warfarin monitoring [...] add Vancomycin for left lower extremity cellulitis [place] prn for pain control CPAP nightly Encouraged [...] ESRD on peritoneal dialysis initially presented to [facility] in [facility] on October 09 for symptoms [...] [phone] RFP: Recent Labs Lab Units 10/31/2322410/30/2341710/29/23 0404 10/28/23 0034 SODIUM mmol/L 131* 132* [...] free T4, synthroid started Fernandez Carranza MD [facility]: MD Chula Domínguez PA Graeme Mindel, MD Justin Krafft, PA Derek Larson, MD FASN Rose Mattli, NP Rohan Devanpalli, MD Candace Shirley, NP [address] [place], [place] [address] [phone] - Office [phone] - Fax * Nida Starr, LUIS - 10/31/2023 10:20 AM CDT Physical Therapy [...] Date Expected End Date End Date PT [facility] 1 10/21/23 11/04/23 -- Goal Details: Patient will perform supine<>sit Independent. Goal Start Date Expected End Date End Date PT [facility] 2 10/21/23 11/04/23 -- Goal Details: Patient will perform bed<>chair transfer Modified Independent with ww. Goal Start Date Expected End Date End Date PT [facility] 3 10/21/23 11/04/23 -- Goal Details: Patient will ambulate 350 feet Modified Independent with wheeled walker. Goal Start Date Expected End Date End Date PT [facility] 4 10/21/23 11/04/23 -- Goal Details: Patient will ambulate up/down 1 step Modified Independent as needed to enter and exithome. Cosigned by Kamryn Mendez, PT at 10/31/2023 2:01 PM CDT * Nusrat Us [facility] - 10/31/2023 10:02 AM CDT Warfarin monitoring [...] 2 mg. Continueto monitor INR. * Emiliana Dickson NP - 10/31/2023 8:40 AM CDT Daily Progress SUBJECTIVE: Mr. Garvin sitting up in the chair. NAD. Denies chest pain, sob, palpitations, dizziness. OBJECTIVE: Vitals: 10/30/23 2212 10/31/23 0059 10/31/23 0433 10/31/23 0803 BP: 144/65 137/63 132/56 BP Location: Right arm Right arm Right arm Patient Position: Sitting Pulse: 65 60 66 69 Resp: 20 18 18 Temp: 37.1 ??C (98.7 ??F) 36.9 ??C (98.4 ??F) TempSrc: Oral SpO2: 95% 99% 93% Weight: Height: Intake/Output Summary (Last 24 hours) at 10/31/2023 0840 Last data filed at 10/30/2023 2130 Gross per 24 hour Intake 240 ml Output -- Net 240 ml Scheduled Medications Medication Dose Route Frequency al & mag hydroxide mebatszdyep-pmgwtdnsncwddkw-vbjpwjgxl-nystatin (MAGIC MOUTHWASH) oral suspension 1-1-1-1 20 mL [...] sternotomy healing well ASSESSMENT/PLAN: CAD - prior RI with multiple PCI - [facility] showed multivessel disease - LVEF dropped to [...] doppler shows no DVT Emiliana Dickson NP [facility] 10/31/2023 8:40 AM * Tim Richard RPh - 10/31/2023 7:49 AM CDT Pharmacokinetic Consult [...] of cefazolin -- Will monitor daily Tim Richard PharmD [facility] Clinical Pharmacist Specialist 10/31/23 7:50 AM Vancomycin [...] Dose based on renal function. * Guerline Rodriguez, LESLY - 10/30/2023 2:59 PM CDT Cardiothoracic Surgery [...] 1 View - Portable - in AM [[id number]] Collected: 10/26/2340 Order Status: Completed Updated: 10/26/23742 [...] Continue Ancef for left lower extremity cellulitis [place] prn for pain control CPAP nightly Encouraged incentive spirometer use and increased activity Stress ulcer prophylaxis: Protonix DVT prophylaxis: INR therapeutic PT/OT: Inpatient rehab denied by insurance, will explore alternative options Plan reviewed with LESLY Larose 10/30/2023 * Nida Starr, AUTOMATIC DRILLING MACHINE OPERATOR - 10/30/2023 11:37 AM CDT Physical Therapy [...] and shoulders elevated Ambulation Comments 1 Pt marcelinoo's improving activity tolerance this session Stairs Stairs [...] Date Expected End Date End Date PT [facility] - [facility] 1 10/21/23 11/04/23 -- Goal Details: Patient will perform supine<>sit Independent. Goal Start Date Expected End Date End Date PT [facility] - [facility] 2 10/21/23 11/04/23 -- Goal Details: Patient will perform bed<>chair transfer Modified Independent with ww. Goal Start Date Expected End Date End Date PT [facility] - [facility] 3 10/21/23 11/04/23 -- Goal Details: Patient will ambulate 350 feet Modified Independent with wheeled walker. Goal Start Date Expected End Date End Date PT [facility] - [facility] 4 10/21/23 11/04/23 -- Goal Details: Patient [...] ESRD on peritoneal dialysis initially presented to [facility] in [facility] on October 09 for symptoms [...] and alert CBC: Recent Labs Lab Units 10/30/2341710/29/23 0404 10/28/23 0034 WBC K/cumm 6.5 7.0 7.4 HEMOGLOBIN g/dL 7.6* 7.9* 7.4* HEMATOCRIT % 24.3* 25.2* 24.1* PLATELETS K/cumm 317 291 244 RFP: Recent Labs Lab Units 10/30/238 10/29/23 0404 10/28/23 0034 10/27/23 0230 SODIUM mmol/L [...] free T4, synthroid started Fernandez Carranza MD [facility]: MD Chula Domínguez, MD Renny Flood PA Derek Larson, MD FASN Rose Mattli, MD Shanda Pederson, ROBERTO [address] [place] [address] [phone] - Office [phone] - Fax * Joselin Strickland MD - [...] any further issues overnight Joselin Strickland MD [facility] SUBJECTIVE: Mr. Garvin is sitting up in [...] Dose Route Frequency al & mag hydroxide kblugxpdyoa-ohljzvvjrduhwuq-cjtsrarum-nystatin (MAGIC MOUTHWASH) oral suspension 1-1-1-1 20 mL [...] sternotomy healing well ASSESSMENT/PLAN: CAD - prior RI with multiple PCI - [facility] showed multivessel [...] cellulitis. -venous doppler pending Emiliana Dickson NP [facility] 10/30/2023 8:17 AM * Nida Starr PTA - 10/30/2023 7:44 AM CDT Physical Therapy 10/30/23 0744 PT Last Visit Session Type Other (comment) PT Received On 10/30/23 PT Missed Visit Reason Procedure/testing/appointment (Pt remains on PD at this time. Will follow up once completed) * Nona Alcala PA - 10/29/2023 12:10 PM CDT Cardiothoracic Surgery [...] ESRD on peritoneal dialysis initially presented to [facility] in [facility] on October 09 for symptoms [...] mmol/L 87* 87* 85* 84* CO2 mmol/L BUN SERUM mg/dL 85* 90* 87* 85* [...] D/W nursing and Dr. Thao Walker MD [facility]: Ron R. [place], MD ChulaLESLY Queen MD Justin Krafft, PA Derek Larson, MD FASN Rose Mattli, NP Rohan Devanpalli, MD Candace Shirley, NP [address] [place], [place] [address] [phone] - Office [phone] - Fax * Manda Schaffer NP - [...] Dose Route Frequency al & mag hydroxide mpuieogfhgi-wpdtpqlspleuqcq-ehpgqfhvh-nystatin (MAGIC MOUTHWASH) oral suspension 1-1-1-1 20 mL [...] sternotomy healing well ASSESSMENT/PLAN: CAD - prior RI with multiple PCI - [facility] showed multivessel [...] LLE -venous doppler pending Manda Schaffer NP [facility] 10/29/2023 9:35 AM Cosigned by Ramirez Newberry MD at 10/29/2023 1:46 PM CDT * Cari Nonamegan Wang, PA - 10/28/2023 2:53 PM CST Cardiothoracic [...] discharge Plan reviewed with LESLY Mack 10/28/2023 PER * oSphia Peoples COTA - 10/28/2023 2:17 PM CST [...] [facility] OT at 10/30/2023 1:30 PM CDT PER * Adam Walker MD - 10/28/2023 1:22 PM CST Images from the original note were not included. Nephrology Juvenal Garvin Jr. - 1970 Primary : Aditya Correa MD History and interval events: 53-year-old gentleman with history of type 1 diabetes mellitus on insulin pump, CHF, CAD, ESRD on peritoneal dialysis initially presented to [facility] in [facility] on October 09 for symptoms [...] Mental status CBC: Recent Labs Lab Units 10/28/23 0034 10/27/2322910/26/23228 WBC K/cumm 7.4 8.0 7.9 HEMOGLOBIN g/dL 7.4* 7.5* 7.9* HEMATOCRIT % 24.1* 23.7* 24.7* PLATELETS K/cumm 244 222 209 RFP: Recent Labs Lab Units 10/28/23 0034 10/27/2322910/26/2322810/25/2333 SODIUM mmol/L 128* 123* 124* 128* POTASSIUM [...] T4, consider thyroid supplementation? Adam Walker MD [facility]: MD Chula Domínguez, MD Renny lFood PA Derek Larson, MD FASN Rose Mattli, NP Rohan Devanpalli, MD Candace Shirley, ROBERTO [address] [place] [address] [phone] - Office [phone] - Fax PER * Manda Schaffer NP - 10/28/2023 8:01 [...] Dose Route Frequency al & mag hydroxide fdcpgohwtqv-iqfzbzccozuovlk-akunvqdqu-nystatin (MAGIC MOUTHWASH) oral suspension 1-1-1-1 20 mL [...] sternotomy healing well ASSESSMENT/PLAN: CAD - prior RI with multiple PCI - [facility] showed multivessel [...] restriction - management per primary/nephrology team Manda Schaffer, ROBERTO [facility] 10/28/2023 8:02 AM Cosigned by Ramirez Newberry MD at 10/28/2023 1:08 PM TROMPER PER PER * Yolanda Campos PA - 10/27/2023 6:58 [...] Intake/Output Summary (Last 24 hours) at 10/27/2023 9439 Last data filed at 10/27/2023 0850 Gross [...] discharge Plan reviewed with LESLY Pantoja 10/27/2023 PER * Taylor Jorge, GAVIN - 10/27/2023 2:33 PM CST Nutrition Follow-up Progress Note Encounter Date: 10/27/23 2:33 PM Nutrition Progress Summary: Patient is a 53 y.o. male. Admit Dx: CAD in [place] artery [I25.10]. Admitted on 10/13/2023. Patient's intake is adequate. Objective Dietary Orders (From admission, onward) Start Ordered 10/26/23 1235 Adult Diet Restricted; Consistent Carbohydrate; Renal; 1000mL = Diet 700/Nursing 300 Diet effective now Question Answer Comment ([facility]) Diet type Restricted Diabetic: Consistent Carbohydrate Renal: [...] Review: Scheduled Meds: al & mag hydroxide cfwwmdzoggm-jcmcavwvdjzreid-cyldyaeyh-nystatin, 20 mL, swish & swallow, Q6H amiodarone, [...] of Weight Used for Estimated Protein : [place] Protein Needs Based on g/k.4 Total Protein Estimated Needs (gm): 105.42 Kcal/kg Type of Weight Used for Estimated Kcals: [place] Kcal/k Total Kcal/kg Estimated Needs : 2259 [...] High protein intake. Taylor Jorge RD, LD PER * Sophia Peoples COTA - 10/27/2023 1:25 [...] Suzie Aiken OT at 10/27/2023 2:23 PM TROMPER PER PER * Joselin Strickland MD - 10/27/2023 12:02 PM CST [facility] Daily Progress SUBJECTIVE: Patient sitting comfortably in [...] oral Q6H PRN al & mag hydroxide avlabwwmmik-oldmhcctrmjueiw-ityrzkhbo-nystatin (MAGIC MOUTHWASH) oral suspension 1-1-1-1 20 mL 20 mL swish & swallow Q6H 20 mL at 10/27/23 0829 amiodarone (PACERONE) tablet 200 mg 200 mg oral BID 200 mg at 10/27/23827 aspirin chewable tablet 81 mg 81 mg oral Daily 81 mg at 10/27/23827 atorvastatin (LIPITOR) tablet 80 mg 80 mg oral Daily 80 mg at 10/27/2328 benzocaine-menthoL (CHLORASEPTIC) lozenge 1 lozenge 1 lozenge mouth/throat Q4H PRN 1 lozenge at 10/27/23813 bisacodyL (DULCOLAX) suppository 10 mg 10 mg [...] 10 mg oral Daily 10 mg at 03/08/24 0828 gentamicin (GARAMYCIN) 0.1 % cream topical Daily [...] meals & nightly) 4 Units at 10/23/23 08 [Held by Provider] insulin lispro (HumaLOG, ADMELOG) 100 unit/mL injection 4 Units 4 Units subcutaneous TID with meals 4 Units at 10/23/23 08 insulin lispro (HumaLOG, ADMELOG) 100 unit/mL injection 5 Units 5 Units subcutaneous Once PRN [Held by Provider] insulin NPH (HumuLIN N, NovoLIN N) 100 unit/mL injection 15 Units 15 Units subcutaneous Daily 15 Units at 10/23/23 08 [Held by Provider] insulin NPH (HumuLIN N, [...] Rate: 100 bpm RR Interval: 599 msec [place] Interval: 0 msec QRS Duration: 145 msec QT Interval: 394 msec QTC Interval: 451 msec P-R-T [place]: 0 - -9 - 132 degrees IMPRESSION: NORMAL SINUS RHYTHM [REASON: NORMAL P AXIS, [place], RATE \T\ RHYTHM] LEFT BUNDLE BRANCH BLOCK OCCASIONAL PVC Electronically Signed By: Jesus uHerta MD ASSESSMENT/PLAN: CAD - prior RI with multiple PCI - LHC showed multivessel [...] management per primary/nephrology team Joselin Strickland MD, [facility] [phone] [facility] 10/27/2023 12:02 PM PER * Fernandez Carranza MD - 10/27/2023 9:44 AM CST Images from the original note were not included. Nephrology Juvenal Garvin Jr. - 1970 Primary : Aditya Correa MD History and interval events: 53-year-old gentleman with history of type 1 diabetes mellitus on insulin pump, CHF, CAD, ESRD on peritoneal dialysis initially presented to [facility] in [facility] on October 09 for symptoms [...] RFP: Recent Labs Lab Units 10/27/23 0230 10/26/2322810/25/23 0034 10/24/23 0103 SODIUM mmol/L 123* 124* [...] attempt to ultrafiltrate more - conversely resulted craie drop in his sodium Continue PD as CCPD Reduced icodextran back to 1 L last fill Limit free water intake Oral loop diuretic Start salt tablets 1 g t.i.d. Bowel regimen CORRINE PO4 binder with meals Repeat BMP this evening Will check free T4 and T3 A.m. labs Dr. Walker will see this weekend Fernandez Carranza MD [facility]: MD Chula Domínguez PA Graeme Mindel, MD Justin Krafft, PA Derek Larson, MD FASN Rose Mattli, NP Rohan Devanpalli, MD Candace Shirley, NP [address] [place], [place] [address] [phone] - Office [phone] - Fax PER PER * Guerline Rodriguez PA - 10/26/2023 4:12 [...] 1 View - Portable - in AM [[id number]] Collected: 10/26/23739 Order Status: Completed Updated: 10/26/23742 Narrative: EXAMINATION: [...] discharge Plan reviewed with LESLY Larose 10/26/2023 PER * Pradeep Reeves NP - 10/26/2023 2:16 PM CST Cardiology Daily Progress - [facility] SUBJECTIVE: Mr. Garvin is lying in bed. He complains of incisional pain. Breathing is okay. Edema present. Review of Systems: Review of systems per HPI and otherwise all other systems are negative OBJECTIVE: Scheduled Medications Medication Dose Route Frequency acetaminophen (TYLENOL) tablet 1,000 mg 1,000 mg oral Q6H ASHLEY al & mag hydroxide hprbqgobbwh-knlflrbufrmmyrc-ttvrdrbmx-nystatin (MAGIC MOUTHWASH) oral suspension 1-1-1-1 20 mL [...] infusion (premix) 0-33 Units/kg/hr 12.7 Units/kg/hr (10/25/23 2352) INSULIN SUBCUTANEOUS PUMP insulin lispro (HumaLOG) 100 [...] No focal deficits ASSESSMENT/PLAN: CAD - prior RI with multiple PCI - [facility] showed multivessel disease - LVEF dropped to [...] - management per primary/nephrology team SHAMIKA Donald [facility] 10/26/2023 2:17 PM PER * Fernandez Carranza MD - 10/26/2023 12:29 PM CST Images from the original note were not included. Nephrology Juvenal Garvin Jr. - 1970 Primary : Aditya Correa MD History and interval events: 53-year-old gentleman with history of type 1 diabetes mellitus on insulin pump, CHF, CAD, ESRD on peritoneal dialysis initially presented to [facility] in [facility] on October 09 for symptoms [...] a cardiology consultation which lead to a [facility]. Results were notable for severe CAD and he was recommended to seek surgical revascularization evaluation prompting transfer to this facility. He missed his peritoneal dialysis last evening during transfer. He has been on peritoneal dialysis for approximately 2 years and tolerating this well under the care of Dr. Reyes. He does make some urine. [facility] Warfarin started for history of [...] 184 RFP: Recent Labs Lab Units 10/26/2322810/25/23 00310/24/23 0103 10/23/23 0153 SODIUM mmol/L 124* 128* [...] PO4 binder with meals Fernandez Carranza MD [facility]: MD Chula Domínguez, MD Renny Flood PA Derek Larson, MD FASN Rose Mattli, NP Rohan Devanpalli, MD Candace Shirley, NP [address] [place], [place] [address] [phone] - Office [phone] - Fax PER * Nusrat Us RPh - 10/26/2023 11:17 AM CST Warfarin monitoring [...] previous supratherapeutic response to 3 mg doses. PER * Gustavo Swan, PT - 10/26/2023 10:10 [...] of ESRD on PD, CAD s/p PCI, RI, and DVTon chronic anticoagulation, Type 1 DM, HTN who presented to [facility] initially on 10/09/23 with general malaise and found to be in DKA and admitted to ICU. During hospitalization found to have elevated Troponins prompted cardiology evaluation and LHC significant for multivessel CAD and subse quently also found aortic stenosis. Transferred to [facility] 10/14/23 for surgical evaluation. Patient isnow s/p [...] Mobility Status;Inaccessible home environment;Home environment challenged Modified Madelyn Score 1 Plan Plan Continue with current [...] (from Physical Therapy) Active Problems Problem: PT [facility] Start Date: 10/21/23 Goal Start Date Expected End Date End Date PT [facility] - [facility] 1 10/21/23 11/04/23 -- Goal Details: Patient will perform supine<>sit Independent. Goal Start Date Expected End Date End Date PT [facility] - [facility] 2 10/21/23 11/04/23 -- Goal Details: Patient will perform bed<>chair transfer Modified Independent with ww. Goal Start Date Expected End Date End Date PT [facility] - [facility] 3 10/21/23 11/04/23 -- Goal Details: Patient will ambulate 350 feet Modified Independent with wheeled walker. Goal Start Date Expected End Date End Date PT [facility] - [facility] 4 10/21/23 11/04/23 -- Goal Details: Patient will ambulate up/down 1 step Modified Independent as needed to enter and exithome. Education: Patient has been educated on the role of PT, safety , precautions, mobility training, and home exercise program. Education completed via explanation, teach back, and demonstration. Patient verbalized understanding and demonstrated understanding PER * Nida Starr, AUTOMATIC DRILLING MACHINE OPERATOR - 10/25/2023 3:01 PM CST Physical Therapy 10/25/23 1501 PT Last Visit Session Type Treatment PT Received On 10/25/23 Safe Environment Arm band checked;Patient found in supine;Session completed bedside;Gait belt utilized for all out of bed mobility Subjective Agreeable to Therapy Additional Pertinent History per eval: 53 y/o M presents for surgical intervention on 10/14/23 from [facility]. Pt is s/p CABG x 3 (SVG-PDA, SVG-OM, BRICE-LAD) and mechanical AVR on 10/[address] Valero. Pt has history of ESRD on PD, CAD s/p PCI, RI, and DVT on chronic anticoagulation, Type 1 [...] Date Expected End Date End Date PT G - [facility] 3 10/21/23 11/04/23 -- Goal Details: Patient will ambulate 350 feet Modified Independent with wheeled walker. Goal Start Date Expected End Date End Date PT [facility] - [facility] 4 10/21/23 11/04/23 -- Goal Details: Patient will ambulate up/down 1 step Modified Independent as needed to enter and exithome. Cosigned by Gustavo Swan, PT at 10/25/2023 4:45 PM TROMPER PER PER * Guerline Rodriguez PA - 10/25/2023 2:13 [...] 1 View - Portable - in AM [[id number]] Collected: 10/25/23 1143 Order Status: Completed Updated: [...] discharge Plan reviewed with LESLY Larose 10/25/2023 PER * Nusrat Us RPh - 10/25/2023 10:39 [...] with another 1.5 mg dose and reassess. PER * Sophia Peoples COTA - 10/25/2023 9:43 [...] Type Surgical pain Clinical Progression Rapidly worsening (01/28) Pain Interventions (pt initially declined pain meds, [...] Vitals post activity BP 129/70, HR 63, [id number] Safe Environment End of Therapy Session Safe [...] Suzie Aiken OT at 10/25/2023 11:49 AM TROMPER PER PER * Emiliana Dickson NP - 10/25/2023 9:27 [...] No focal deficits ASSESSMENT/PLAN: CAD - prior RI with multiple PCI - C showed multivessel [...] management per primary/nephrology team Emiliana Dickson NP [facility] 10/25/2023 9:28 AM Cosigned by Dilip Cohen MD at 10/25/2023 9:55 AM TROMPER PER PER Associated attestation - Dilip Cohen MD - 10/25/2023 9:55 AM TROMPER Patient seen at the bedside Is continuing to recover Still has some edema Continue anticoagulation for both the Afib for the on X valve Total time taken was 15 minute * Nida Starr, AUTOMATIC DRILLING MACHINE OPERATOR - 10/24/2023 11:46 AM CST Physical Therapy 10/24/23 1146 PT Last Visit Session Type Treatment PT Received On 10/24/23 Safe Environment Arm band checked;Patient found sitting at edge of bed;Session completed bedside;Gait belt utilized for all out of bed mobility Subjective Agreeable to Therapy Additional Pertinent History per eval: 53 y/o M presents for surgical intervention on 10/14/23 from [facility]. Pt is s/p CABG x 3 (SVG-PDA, SVG-OM, BRICE-LAD) and mechanical AVR on 10/[address] Valero. Pt has history of ESRD on PD, CAD s/p PCI, RI, and DVT on chronic anticoagulation, Type 1 [...] (from Physical Therapy) Active Problems Problem: PT [facility] Start Date: 10/21/23 Goal Start Date Expected End Date End Date PT [facility] 1 10/21/23 11/04/23 -- Goal Details: Patient will perform supine<>sit Independent. Goal Start Date Expected End Date End Date PT [facility] - [facility] 2 10/21/23 11/04/23 -- Goal Details: Patient will perform bed<>chair transfer Modified Independent with ww. Goal Start Date Expected End Date End Date PT [facility] - [facility] 3 10/21/23 11/04/23 -- Goal Details: Patient will ambulate 350 feet Modified Independent with wheeled walker. Goal Start Date Expected End Date End Date PT [facility] - [facility] 4 10/21/23 11/04/23 -- Goal Details: Patient will ambulate up/down 1 step Modified Independent as needed to enter and exithome. Cosigned by Gina Mason DPT at 10/24/2023 3:12 PM TROMPER PER PER * Fernandez Carranza MD - 10/24/2023 10:56 AM CST Images from the original note were not included. Nephrology Juvenal Garvin . - 1970 Primary : Aditya Correa MD History and interval events: 53-year-old gentleman with history of type 1 diabetes mellitus on insulin pump, CHF, CAD, ESRD on peritoneal dialysis initially presented to [facility] in [facility] on October 09 for symptoms [...] a cardiology consultation which lead to a [facility]. Results were notable for severe CAD and [...] PO4 binder with meals Fernandez Carranza MD [facility]: MD Chula Domínguez, MD Renny Flood PA Derek Larson, MD FASN Rose Mattli, NP Rohan Devanpalli, MD Candace Shirley, ROBERTO [address] [place], [place] [address] [phone] - Office [phone] - Fax PER * Nona Alcala PA - 10/24/2023 10:15 [...] discharge Patient discussed with LESLY Vallecillo 10/24/2023 PER * Nusrat Us RPh - 10/24/2023 9:49 [...] setting (nutrition). Warfarin dose today: 1.5 mg PER * Salena Rene NP - 10/24/2023 9:26 AM CST Cardiology Daily Progress - [facility] SUBJECTIVE: Mr. Garvin is resting in bed. [...] 10/23/23 0754 10/23/23 0153 10/22/23 0812 10/22/23 00310/19/23 1625 10/19/23 1444 SODIUM mmol/L -- 127* [...] 184 207 201 Recent Labs Lab Units 10/24/2310210/23/2315203/24 0031 10/21/23 0140 10/20/23 0322 10/20/23 0021 [...] -- -- -- 61 -- -- -- 10/23/235 -- -- -- 67 -- -- -- [...] No focal deficits ASSESSMENT/PLAN: CAD - prior RI with multiple PCI - LHC showed multivessel [...] water restriction with hyponatremia Salena Rene NP [facility] 10/24/2023 9:26 AM PER * Wyatt Rodriguez EP-C - 10/24/2023 8:08 AM CST Inpatient Cardiac Rehab Education Patient Information Patient Name: Juvenal Garvin Jr. : 1970 Room/Bed: [place] [id number] Insurance: [employer] + IDPA Progress Note Computer Systems Analyst: ROSA Silva Date: 10/24/2023 Referring Diagnosis for Cardiac Rehab - s/p CABG x 3, AVR Education Provided Explained my role as a Cardiac Rehab Navigator (CRN). Provided Cardiac Rehab education to patient. Family was (not) present. Patient was provided with Cardiac Rehab education folder as well as a [facility] Heart Education booklet. Risk Factors: HTN, [...] fats)and exercise. Advised patient to consult their refinery operator polymerization plant, nurse, and/or physician if they have any questions about their diet/nutrition. Cardiac Rehab: Gave patient options of facilities for Outpatient Cardiac Rehab (OCR) in their community. Explained OCR program. Patient expressed knowledge towards local OCR program - patient prefers [facility] I anticipate no barriers for patient [...] working towards eventually trying to reach the [employer] recommendations in regards to exercise: [...] when it would be appropriate to call Watershed Coordinator's office, go to the ER, or call 911. Insurance Coverage: Briefly explained general insurance coverage for OCR, but assured patient that OCR facility will usually call insurance and inform patient of more of an approximate coverage. Post-Discharge: Explained process between discharge from hospital, and getting set up in an OCR program - follow upwith Watershed Coordinator, CRN follow up calls, OCR program contact. Conclusion Patient seems likely to participate in OCR. Reassured patient of importance and health care provider support of OCR. Patient verbalized understanding of education, and all questions were answered to the best of my ability. Will complete order for OCR to be sent to Watershed Coordinator. Thank you for allowing us to warehouse administrative assistant in the care of this patient, please don't hesitate to contact the Cardiac Rehab Navigator office with any questions: [phone]. PER * Fernandez Carranza MD - 10/23/2023 5:30 PM CST Images from the original note were not included. Nephrology Juvenal Garvin Jr. - 1970 Primary : Aditya Correa MD History and interval events: 53-year-old gentleman with history of type 1 diabetes mellitus on insulin pump, CHF, CAD, ESRD on peritoneal dialysis initially presented to [facility] in [facility] on October 09 for symptoms [...] PO4 binder with meals Fernandez Carranza MD [facility]: MD Chula Domínguez, MD Renny Flood PA Derek Larson, MD FASN Rose Mattli, NP Rohan Devanpalli, MD Candace Shirley, NP [address] [place], [place] [address] [phone] - Office [phone] - Fax PER * Nona Alcala PA - 10/23/2023 3:04 [...] discharge Patient discussed with LESLY Vallecillo 10/23/2023 PER * Gustavo Swan, PT - 10/23/2023 10:42 [...] presents for surgical intervention on 10/14/23 from [facility]. Pt is s/p CABG x 3 (SVG-PDA, SVG-OM, BRICE-LAD) and mechanical AVR on 10/[address] Valero. Pt has history of ESRD on PD, CAD s/p PCI, RI, and DVT on chronic anticoagulation, Type 1 [...] (from Physical Therapy) Active Problems Problem: PT [facility] Start Date: 10/21/23 Goal Start Date Expected End Date End Date PT [facility] - [facility] 1 10/21/23 11/04/23 -- Goal Details: Patient will perform supine<>sit Independent. Goal Start Date Expected End Date End Date PT [facility] - [facility] 2 10/21/23 11/04/23 -- Goal Details: Patient will perform bed<>chair transfer Modified Independent with ww. Goal Start Date Expected End Date End Date PT [facility] - [facility] 3 10/21/23 11/04/23 -- Goal Details: Patient will ambulate 350 feet Modified Independent with wheeled walker. Goal Start Date Expected End Date End Date PT [facility] - [facility] 4 10/21/23 11/04/23 -- Goal Details: Patient will ambulate up/down 1 step Modified Independent as needed to enter and exithome. Education: Patient has been educated on the role of PT, safety , precautions, mobility training, stairs, and home exercise program. Education completed via explanation, teach back, and demonstration.Patient verbalized understanding, demonstrated understanding, and needs ongoing reinforcement PER * Nusrat Us RPh - 10/23/2023 9:40 [...] the previous starting dose of 3 mg. PER * Nida Starr PTA - 10/23/2023 8:10 AM CST Physical Therapy 10/23/23 0810 PT Last Visit Session Type Treatment PT Received On 10/23/23 PT Missed Visit Reason Procedure/testing/appointment (Pt is currently on PD - nursing will notify when pt is finished.) PER * Saulo Kimball COTA - 10/23/2023 7:10 [...] Suzie Aiken OT at 10/23/2023 9:51 AM TROMPER PER PER * Bartolo Solorio MD - 10/23/2023 6:38 AM CST Cardiology Inpatient Progress Note [facility] SUBJECTIVE: Pt had no [...] cyanosis or clubbing. ASSESSMENT/PLAN: CAD - prior RI with multiple PCI - C showed multivessel [...] wafarin with mechanical valve Bartolo Solorio MD, [facility], [place] [facility] 10/23/2023 6:38 AM PER * Ron Martinez MD - 10/22/2023 8:57 PM CST Images from the original note were not included. Nephrology Juvenal Garvin Jr. - 1970 Primary : Aditya Correa MD History and interval events: 53-year-old gentleman with history of type 1 diabetes mellitus on insulin pump, CHF, CAD, ESRD on peritoneal dialysis initially presented to [facility] in [facility] on October 09 for symptoms [...] make some urine. S[facility] Warfarin started for history of [...] regimen Start CORRINE weekly Ron Martinez MD [facility]: MD Chula Domínguez PA Graeme Mindel, MD Justin Krafft, PA Derek Larson, MD FASN Rose Mattli, NP Rohan Devanpalli, MD Candace Shirley, NP [address] [place] [address] [phone] - Office [phone] - Fax PER * Yolanda Campos PA - 10/22/2023 5:09 [...] prophylaxis Patient discussed with LESLY Danielle 10/22/2023 PER * Makayla Diallo [facility] - 10/22/2023 9:06 AM CST Warfarin monitoring [...] following significant increase yesterday Makayla Diallo, PharmD [place] 10/22/23 9:06 AM PER * Bartolo Solorio MD - 10/22/2023 6:43 AM CST Cardiology Inpatient Progress Note [facility] SUBJECTIVE: Pt had no [...] cyanosis or clubbing. ASSESSMENT/PLAN: CAD - prior RI with multiple PCI - [facility] showed multivessel disease - LVEF dropped to [...] wafarin with mechanical valve Bartolo Solorio MD, [facility], [place] [facility] 10/22/2023 6:43 AM PER * Yolanda Campos PA - 10/21/2023 4:19 [...] prophylaxis Patient discussed with LESLY Danielle 10/21/2023 PER PER * iGna Mason DPT - 10/21/2023 9:05 AM CST Physical Therapy 10/21/23 09 General Chart Reviewed Yes Session Type Evaluation PT Received On 10/21/23 Safe Environment Arm band checked;Patient found in supine;Gait belt utilized for all out of bed mobility Subjective Agreeable to Therapy Additional Pertinent History 53 y/o M presents for surgical intervention on 10/14/23 from [facility]. Pt is s/p CABG x 3 (SVG-PDA, SVG-OM, BRICE-LAD) and mechanical AVR on 10/[address] Valero. 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 Goal Start Date Expected End Date End Date PT [facility] - [facility] 2 10/21/23 11/04/23 -- Goal Details: Patient will perform bed<>chair transfer Modified Independent with ww. Goal Start Date Expected End Date End Date PT [facility] - [facility] 3 10/21/23 11/04/23 -- Goal Details: Patient will ambulate 350 feet Modified Independent with wheeled walker. Goal Start Date Expected End Date End Date PT [facility] - [facility] 4 10/21/23 11/04/23 -- Goal Details: Patient will ambulate up/down 1 step Modified Independent as needed to enter and exithome. PER * Ron Martinez MD - 10/21/2023 8:48 AM CST Images from the original note were not included. Nephrology Juvenal Michael Pilo . - 1970 Primary : Aditya Correa MD History and interval events: 53-year-old gentleman with history of type 1 diabetes mellitus on insulin pump, CHF, CAD, ESRD on peritoneal dialysis initially presented to [facility] in [facility] on October 09 for symptoms [...] regimen Start CORRINE weekly Ron Martinez MD [facility]: MD Chula Domínguez PA Graeme Mindel, MD Justin Krafft, PA Derek Larson, MD FASN Rose Mattli, NP Rohan Devanpalli, MD Candace Shirley, NP [address] [place], [place] [address] [phone] - Office [phone] - Fax PER * Bartolo Solorio MD - 10/21/2023 8:08 AM CST Cardiology Inpatient Progress Note [facility] SUBJECTIVE: Pt had no acute events overnight and was noted to convert to sinus rhythm at ~0445. He states that he is doing well with good pain control. OBJECTIVE: Vitals: 10/20/235 10/20/23 2247 10/21/23 0100 10/21/23 0726 BP: 129/57 [...] cyanosis or clubbing. ASSESSMENT/PLAN: CAD - prior RI with multiple PCI - [facility] showed multivessel disease - LVEF dropped to [...] wafarin with mechanical valve Bartolo Solorio MD, [facility] [facility] [place], [place] [facility] 10/21/2023 8:08 AM PER * Dominique Fuentes RRT - 10/21/2023 12:29 AM CST 10/20/232246 NPPV Information NPPV Mode CPAP NPPV Status Refused NPPV Type V-60 NPPV ID L RT Therapist Assist Charges RT Therapist Assist NPPV 1 Encouraged patient to have his CPAP unit brought in since intolerable of ours. PER * Carly Spencer RD - 10/20/2023 3:27 PM CST Nutrition Follow-up Progress Note Encounter Date: 10/20/23 3:30 PM Nutrition Progress Summary: Patient is a 53 y.o. male. Admit Dx: CAD in [place] artery [I25.10]. Admitted on 10/13/2023. Pt s/p CABG/AVR 10/17/23. PMH includes Type I DM, ESRD on PD. Pt reports he is tolerating his meals and drinking the Nepro supplement. Increased protein intake encouraged. Pt new on Coumadin. Educated pt on Coumadin/diet interaction. Pt is familiar with his diabetic renal diet and plans to improve his adherence to diet. Cargo Mate consult noted. Pt with good understanding of [...] Renal Diet effective now Question Answer Comment ([facility]) Diet type Restricted Diabetic: Consistent Carbohydrate Renal: [...] of Weight Used for Estimated Protein : [place] Protein Needs Based on g/k.4 Total Protein Estimated Needs (gm): 105.42 Kcal/kg Type of Weight Used for Estimated Kcals: [place] Kcal/k Total Kcal/kg Estimated Needs : 2259 [...] High protein intake. Carly Spencer RD, LD PER * Saulo Kimball COTA - 10/20/2023 2:40 PM CST Occupational Therapy [...] assistance (Moderate assist santa/doff B socks with slide developer and sock aid, Minimal assist santa/doff sweatpants with slide developer) Transfer 1 Trials/Comments 1 Minimal assist sit [...] Stephanie Goodman OT at 10/21/2023 2:07 PM TROMPER PER PER * Byron Olvera, ROBERTO - 10/20/2023 12:45 PM CSTAssociated Order(s): Critical Care Post-Procedure Diagnose(s): 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[place] artery of [place] heart with stable angina pectoris (HCC) Images from the original note were not included. [facility] CVR Daily Progress Note- Patient: Juvenal Garvin Jr. : 1970 Age: 53 y.o. male Admitting Physician: Jaqueline Valero MD Research Worker Encyclopedia: Kirsten Burns MD Shift: [facility] CVR AM Interval History: NEON Admitted to the hospital on 10/13/2023 11:18 PM for CAD in [place] artery [I25.10] Hospital Course: (10/17/23) s/p CABG [...] 0.9%, 10 mL/hr Date 10/19/23699 - 10/20/2359 10/20/23 07 - 10/21/23 0659 Shift 2344-3483 8338-3647 24 Hour Total 3875-4860 6218-4721 24 Hour Total INTAKE P.O. 360 360 [...] days: 3 Recent Labs Lab Units 10/20/23 00210/19/2321010/18/23 015 SODIUM mmol/L 137 138 136 POTASSIUM PLASMA [...] -- -- Recent Labs Lab Units 10/20/232010/19/2321010/18/23 015 WBC K/cumm 8.8 8.9 8.3 HEMOGLOBIN g/dL 8.3* 8.7* 8.5* HEMATOCRIT % 26.2* 27.4* 26.4* PLATELETS K/cumm 149* 157 164 Recent Labs Lab Units 10/20/23 0322 10/20/23 0021 10/19/23 2147 10/19/23 1444 10/19/23 0414 10/19/23 02110/18/23 1455 10/18/23 015 APTT sec 114* -- 94* 59* < [...] s/p mechanical AVR Post CPB LEIA on ENTERPRISE INTEGRATION DEVELOPER 5 with LVEF 40-50%, normal RV. (Told during report) no note in place. Arrived on ENTERPRISE INTEGRATION DEVELOPER 5, NE 0.05 with low filling pressures and AAI 90. Post op bleeding requiring multiple transfusions. Bleeding from CT slowed overnight but oozing at lines and drain sites. 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 On Eliquis at home. Was on Heparin drip pre op. Arrived from [place] AAI at 90 with reported bradycardia in PCU while on BB SB 50-60s. ENTERPRISE INTEGRATION DEVELOPER weaned off overnight and EPW to VVI [...] off Insulin drip prior to transfer to [facility]. Insulin pump not working when he presented [...] by: Byron Olvera NP CRITICAL CARE: Team: [facility] CT Shift: AM Level of Billing: Subsequent [...] plan with the patient's team and other medical/seo consultant staff. This time was in addition to and separate from care provided by other practitioners on this day of service. Cosigned by Kirsten Burns MD at 10/29/2023 10:56 PM CDT PER * Nusrat Us RPh - 10/20/2023 12:06 [...] increase as much as it did today. PER * Bartolo Solorio MD - 10/20/2023 9:18 AM CST Cardiology Daily Progress - [facility] SUBJECTIVE: Mr. Garvin is resting comfortably in [...] tablet 1,000 mg 1,000 mg oral Q6H [facility] aspirin chewable tablet 81 mg 81 mg [...] 0.9% (premix) solution 1,000 mg 1,000 mg [id number] PRN 1,000 mg at 10/18/23 0032 Carrier [...] 0057 10/20/23 0021 10/19/23 1625 10/19/23 1444 02/25510/19/2321010/18/23 01510/18/23 01510/14/23 02010/14/23 0104 SODIUM mmol/L -- -- -- -- [...] not displayed. Recent Labs Lab Units 10/20/23 00210/19/2321010/18/23 0154 WBC K/cumm 8.8 8.9 8.3 HEMOGLOBIN g/dL 8.3* 8.7* 8.5* HEMATOCRIT % 26.2* 27.4* 26.4* PLATELETS K/cumm 149* 157 164 Recent Labs Lab Units 10/20/23 0322 10/20/23 0021 10/19/23 2147 10/19/23 1444 10/19/23 0414 10/19/2321010/18/23 1455 10/18/23 0154 PROTIME (PT) sec -- [...] No focal deficits ASSESSMENT/PLAN: CAD - prior RI with multiple PCI - [facility] showed multivessel disease - LVEF dropped to [...] fibrillation (HR in 60s) Salena Rene NP [facility] 10/20/2023 9:18 AM Pt evaluated with RESPIRATORY CARE TECHNICIAN. He is doing well clinically with planned transfer from the ICU today. Afib rates are well-controlled (currently in the 60s) with plan detailed above. PER PER * Chula Valera PA - 10/20/2023 6:43 AM CST Images from the original note were not included. Nephrology Juvenal Garvin Jr. - 1970 Primary : Aditya Correa MD History and interval events: 53-year-old gentleman with history of type 1 diabetes mellitus on insulin pump, CHF, CAD, ESRD on peritoneal dialysis initially presented to [facility] in [facility] on October 09 for symptoms [...] Continue active and nutritional vitamin-D LESLY Ortiz [facility]: MD Chula Domínguez PA Graeme Mindel, MD Justin Krafft, PA Derek Larson, MD FASN Rose Mattli, NP Rohan Devanpalli, MD Candace Shirley, NP [address] [place], [place] [address] [phone] - Office [phone] - Fax PER PER * Eliana Márquez, PT - 10/19/2023 2:25 PM CST Physical Therapy Cancellation 10/19/23 1425 PT Last Visit Session Type Other (comment) PT Received On 10/19/23 Subjective Other Subjective Comment Per RN, Pt. is too fatigued to participate in therapy, will attempt evaluation 10/19. PT Missed Visit Reason MD/RN Hold;Asleep PER * Chula Valera PA - 10/19/2023 12:42 PM CST Images from the original note were not included. Nephrology Juvenalfabi Garvin . - 1970 Primary : Aditya Correa MD History and interval events: 53-year-old gentleman with history of type 1 diabetes mellitus on insulin pump, CHF, CAD, ESRD on peritoneal dialysis initially presented to [facility] in [facility] on October 09 for symptoms [...] vitamin-D Resume Phoslo with meals LESLY Ortiz [facility]: MD Chula Domínguez PA Graeme Mindel, MD Justin Krafft, PA Derek Larson, MD FASN Rose Mattli, NP Rohan Devanpalli, MD Candace Shirley, ROBERTO [address] [place], [place] [address] [phone] - Office [phone] - Fax PER PER * Reyes Odom - 10/19/2023 11:49 AM CST Occupational Therapy Evaluation 10/19/23 1035 General Chart Reviewed Yes Session Type Evaluation OT Received On 10/19/23 Safe Environment Arm band checked;Patient found in supine Subjective Agreeable to Therapy Subjective Comment I'm so cold and tired. Additional Pertinent History 53 y/o M presents for surgical intervention on 10/14/23 from [facility]. Pt is s/p CABG x 3 (SVG-PDA, SVG-OM, BRICE-LAD) and mechanical AVR on 10/[address] Valero. Pt has history of ESRD on PD, CAD s/p PCI, RI, and DVT on chronic anticoagulation, Type 1 [...] mobility at baseline. 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 Grooming Grooming: Where assessed Chair Grooming: Level of assistance Minimum Assist (Pt exhibiting functionally weak survey engineer strength and fine motor skills with BUEs. [...] Pain Location Sternum Clinical Progression (Post pain 10/28) Pain Interventions Medication (See MAR) Activity Tolerance [...] Suzie Aiken OT at 10/19/2023 11:50 AM TROMPER PER PER * Felipe Robledo DO - 10/19/2023 8:09 AM CST Cardiology Progress Note - [facility] SUBJECTIVE: Pain contolled Stable hemodynamics Current Medications: [...] 0-33 Units/kg/hr, Last Rate: 8.3 Units/kg/hr (10/19/23 0600) insulin regular, 0-30 Units/hr, Last Rate: 4.5 [...] to chair today progressing Felipe Robledo DO, [facility] 10/19/2023 8:09 AM PER * Dawna Castellanos NP - 10/19/2023 6:57 AM CSTAssociated Order(s): Critical Care Post-Procedure Diagnose(s): CAD in [place] artery Images from the original note were not included. [facility] CVR Daily Progress Note- Patient: Juvenal Garvin Jr. : 1970 Age: 53 y.o. male Admitting Physician: Jaqueline Valero MD Research Worker Encyclopedia: Kirsten Burns MD Shift: [facility] CVR AM Interval History: ENTER[employer]ISE INTEGRATION DEVELOPER wean q6h for Scv02 >65-> off d/t HTN Changed to VVI 50, HR 60 Nasal cpap Dc dilaudid, dec oxy to 2.5 Admitted to the hospital on 10/13/2023 11:18 PM for CAD in [place] artery [I25.10] Hospital Course: (10/17/23) s/p CABG x 3 (SVG-PDA, SVG-OM, BRICE-LAD) and mechanical AVR (25 Bello) by Dr. Valero Temp: [36.3 ??C (97.4 [...] -- Cardiac Rhythm: Normal sinus rhythm (10/19 719) Pacer Mode: -- NPPV Mode: CPAP (10/19/23 [...] mL sodium chloride 0.9%, 10 mL/hr Date 10/18/23 07 - 10/19/23 0659 10/19/23 07 - 10/20/23 0659 Shift 9673-6224 1970-6465 24 Hour Total 0067-1354 5913-1467 24 Hour Total INTAKE P.O. 100 100 I.V.(mL/kg) 500(4) 500(4) Shift Total(mL/kg) 600(4.8) 600(4.8) OUTPUT Urine(mL/kg/hr) 155(0.1) 135(0.1) 290(0.1) 20 20 Drains 0 0 0 Other 1279 1279 1459 1459 Chest Tube 20 115 135 Shift Total(mL/kg) 1454(11.5) 250(2) 1704(13.5) 1479(11.7) 1479(11.7) NET -145 592 -1376 -0058 -0629 Weight (kg) 126.2 126.2 126.2 126.2 126.2 [...] days: 2 Recent Labs Lab Units 10/19/23 0211 10/18/23 [...] 0.9 1.2 -- Recent Labs Lab Units 10/19/2321010/18/23 01510/17/23 2255 WBC K/cumm 8.9 8.3 7.7 HEMOGLOBIN g/dL 8.7* 8.5* 8.8* HEMATOCRIT % 27.4* 26.4* 27.2* PLATELETS K/cumm 157 164 165 Recent Labs Lab Units 10/19/23 0858 10/19/23 0414 10/19/23 0211 10/18/23 2121 10/18/23 1455 10/18/23 0154 10/17/23 1812 APTT sec 46* 50* -- 43* [...] s/p mechanical AVR Post CPB LEIA on EN[employer]TEGRATION DEVELOPER 5 with LVEF 40-50%, normal RV. (Told during report) no note in place. Arrived on ENTER[employer]TEGRATION DEVELOPER 5, NE 0.05 with low filling pressures and AAI 90. Post op bleeding requiring multiple transfusions. Bleeding from CT slowed overnight but oozing at lines and drain sites. Overnight ENTERPRISE INTEGRATION DEVELOPER weaned off due to hypertension. 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 On Eliquis at home. Was on Heparin drip pre op. Arrived from [place] AAI at 90 with reported bradycardia in PCU while on BB SB 50-60s. ENTERPRISE INTEGRATION DEVELOPER weaned off overnight and EPW to VVI [...] off Insulin drip prior to transfer to [facility]. Insulin pump not working when he presented to ER. Very labile blood sugars on basal/SSI regimen with glucose up to 300s. Likely difficulty with management due to PD. Remains on Insulin infusion, glucose labile while on PD. - Continue Insulin infusion per Silvis protocol - do not turn off drip [...] glycol and bisacodyl suppository PRN. Glycemic control: Silvis Protocol insulin gtt.. Lab Results Component Value [...] by: Dawna Castellanos NP CRITICAL CARE: Team: [facility] CT Shift: AM Level of Billing: Critical [...] plan with the ICU team and other medical/seo consultant staff, making frequent assessments and decisions [...] Burns MD at 10/29/2023 10:55 PM CDT PER * Chula Valera PA - 10/18/2023 2:46 PM CST Images from the original note were not included. Nephrology Juvenal Garvin Jr. - 1970 Primary : Aditya Correa MD History and interval events: 53-year-old gentleman with history of type 1 diabetes mellitus on insulin pump, CHF, CAD, ESRD on peritoneal dialysis initially presented to [facility] in [facility] on October 09 for symptoms [...] vitamin-D Resume Phoslo with meals LESLY Ortiz [facility]: MD Chula Domínguez PA Graeme Mindel, MD Justin Krafft, PA Derek Larson, MD FASN Rose Mattli, NP Rohan Devanpalli, MD Candace Shirley, NP [address] [place], [place] [address] [phone] - Office [phone] - Fax PER PER * Nusrat Us, [facility] - 10/18/2023 10:05 AM CST Pharmacy Note [...] patient. Nusrat Us RPh 10/18/23 9:53 AM PER * Felipe Robledo DO - 10/18/2023 9:43 AM CST Cardiology Progress Note - [facility] SUBJECTIVE: Extubated this am Arousable but mumbling Stable hemodynamics On heparin drip Current Medications: Scheduled Meds:acetaminophen, 1,000 mg, oral, Q6H ASHLEY aspirin, 81 mg, oral, Daily atorvastatin, 80 mg, oral, Daily calcitRIOL, 0.25 mcg, oral, Daily calcium acetate(phosphat bind), 667 mg, oral, TID with meals calcium acetate(phosphat bind), 667 mg, oral, Nightly ceFAZolin, 1,000 mg, intravenous, Q24H AHSLEY docusate sodium, 100 mg, oral, BID ezetimibe, [...] heparin, 0-33 Units/kg/hr, Last Rate: 6.3 Units/kg/hr (10/18/2313) insulin regular, 0-30 Units/hr, Last Rate: 4 Units/hr (10/18/23917) norepinephrine, 0-2 mcg/kg/min, Last Rate: 0.01 mcg/kg/min [...] stable hemodynamics Heparin-->warfarin tonight Felipe Robledo DO, [place] [facility] 10/18/2023 9:43 AM PER * Aleah Win DPT - 10/18/2023 8:44 AM CST Physical Therapy 10/18/23 0844 General PT Received On 10/18/23 Subjective Comment patient requiring multiple vasopressors: will re-attempt PT evaluation PER * Dawna Castellanos NP - 10/18/2023 7:27 AM CSTAssociated Order(s): Critical Care Post-Procedure Diagnose(s): CAD in [place] artery Images from the original note were not included. [facility] CVR Daily Progress Note- Patient: Juvenal Garvin Jr. : 1970 Age: 53 y.o. male Admitting Physician: Jaqueline Valero MD Research Worker Encyclopedia: Kirsten Burns MD Shift: [facility] CVR AM Interval History: 1u prbc's 2 grams Mag Post transfusion labs Admitted to the hospital on 10/13/2023 11:18 PM for CAD in [place] artery [I25.10] Hospital Course: (10/17/23) s/p CABG x 3 (SVG-PDA, SVG-OM, BRICE-LAD) and mechanical AVR (25 Bello) by Dr. Valero Temp: [36.2 ??C (97.2 [...] Pacing: -- Cardiac Rhythm: Atrial paced (10/18 1000) Pacer Mode: -- NPPV Mode: CPAP (10/17/23311) [...] clean, dry, intact. SVG site with dermabond TICKET AGENT. Drains: Chest tubes to -20 suction with [...] 10/18/23 0659 10/18/23699 - 10/19/23 0659 Shift 7142-5505 0831-6842 24 Hour Total 5577-1182 4450-4274 24 Hour Total INTAKE I.V.(mL/kg) 2724(21.6) 950(7.5) 3674(29.1) Blood 1324 307 6108 NG/GT 60 62 122 IV Piggyback 575 50 625 Shift Total(mL/kg) 5349(42.4) 1402(11.1) 6751(53.5) OUTPUT Urine(mL/kg/hr) 77(0.1) 163(0.1) 240(0.1) 60 60 Emesis/NG output 150 150 Drains 410 60 470 0 0 Other 4000 4000 1279 1279 Blood 1000 1000 Chest Tube 801 481 1766 10 10 Shift Total(mL/kg) 6247(49.5) 658(5.2) 6905(54.7) 1349(10.7) 1349(10.7) [facility] -898 744 -154 -9668 -3591 Weight (kg) 126.2 126.2 126.2 126.2 126.2 [...] 0.9 1.2 -- Recent Labs Lab Units 10/18/2315310/17/23225410/17/231811 WBC K/cumm 8.3 7.7 7.2 HEMOGLOBIN g/dL 8.5* 8.8* 8.0* HEMATOCRIT % 26.4* 27.2* 24.7* PLATELETS K/cumm 164 165 161 Recent Labs Lab Units 10/18/2315310/17/23181110/17/23 16310/17/23 132 APTT sec -- 32 63* 37 INR 1.18 1.22* 1.23* 1.29* Recent Labs Lab Units 10/18/2315310/17/23225510/17/231811 PH ART 7.35 7.33* 7.40 PCO2 ART [...] s/p mechanical AVR Post CPB LEIA on ENTER[employer]ISE INTEGRATION DEVELOPER 5 with LVEF 40-50%, normal RV. (Told during report) no note in place. Arrived on ENTER[employer]ISE INTEGRATION DEVELOPER 5, NE 0.05 with low filling pressures and AAI 90. Post op bleeding requiring multiple transfusions. Bleeding from CT slowed overnight but oozing at lines and drain sites. AAI 90, SBP 100-110s, PAP 20-30/10s, CVP 5-8, CI 2.8-3.9 SVR 400-500s on ENTERPRISE INTEGRATION DEVELOPER 5, NE 0.02, vaso 0.04 Extubated early this AM. 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 Extubated this AM to LA. CXR with bibasilar atelectasis and affusions. - [...] off Insulin drip prior to transfer to [facility]. Insulin pump not working when he presented to ER. Very labile blood sugars on basal/SSI regimen with glucose up to 300s. Likely difficulty with management due to PD. Up to 6 units/hr overnight. Had been on [id number] Insulin was down to 0.5units/hr. - DC D5LR - Continue Insulin infusion per Silvis protocol - do not turn off drip [...] glycol and bisacodyl suppository PRN. Glycemic control: Silvis Protocol insulin gtt.. Lab Results Component Value Date HGBA1C 8.1 (H) 10/16/2023 Physical therapy/Activity: PT/OT ordered today to start when the patient can actively participate Updates: 1200: Cuff pressures better than dean. NE off. Will wean Vaso via cuff pressures. CI 3.5 after DBAdown to 4. 1430: CI >3.0. Will DC PAC/cordis and decrease ENTERPRISE INTEGRATION DEVELOPER to 3. Vaso off. Glucose in 80s, RN aware to drop Insulin to 0.5units/kg/hr. Dawna Castellanos NP Critical Care Performed by: Dawna Castellanos NP Authorized by: Dawna Castellanos NP CRITICAL CARE: Team: [facility] CT Shift: AM Level of Billing: Critical [...] plan with the ICU team and other medical/seo consultant staff, making frequent assessments and decisions [...] Kirsten Burns MD at 10/19/2023 12:02 PM TROMPER PER PER * Suzie Aiken OT - 10/18/2023 6:55 AM CST Occupational Therapy 10/18/23 0655 General OT Received On 10/18/23 Subjective Comment Pt remains intubated, sedated, and requiring multiple pressors for BP control. Will defer skilled OT at this time and follow up as medically appropriate OT Missed Visit Reason Other (comment) PER * Dilip Cohen MD - 10/17/2023 4:24 PM CST Cardiology Progress note SUBJECTIVE: Mr. Limon/P CABG x 3 and AVR with [place] valve Intubated/sedated INTERIM CHANGE PAST 24 HOURS: none Full ROS unable to assess OBJECTIVE: Vitals: 10/17/23 1325 10/17/23 1330 10/17/23 1345 10/17/23 1538 BP: (!) 97/36 BP Location: Pulse: 90 90 91 90 Resp: Temp: 36.2 ??C (97.2 ??F) TempSrc: Core [...] PM Result Value Ref Range Product code B8813N64 Unit Number [id number] Product Blood Type APOS Dispense Status ISSUED Product code I1738Y51 Unit Number [id number] Product Blood Type APOS Dispense Status ISSUED Product code D2139U19 Unit Number [id number] Product Blood Type APOS Dispense Status CROSSMATCHED [...] AM Result Value Ref Range Product code H9340X87 Unit Number [id number] Product Blood Type BPOS Dispense Status ISSUED Prepare plasma: 2 Units Collection Time: 10/17/23 9:12 AM Result Value Ref Range Product code E8029K83 Unit Number [id number] Product Blood Type APOS Dispense Status ISSUED Product code V3902G05 Unit Number [id number] Product Blood Type ANEG Dispense Status ISSUED Prepare cryoprecipitate (pooled units): 2 Units Collection Time: 10/17/23 9:12 AM Result Value Ref Range Product code T2187P84 Unit Number [id number] Product Blood Type OPOS Dispense Status ISSUED Product code U0913C45 Unit Number [id number] Product Blood Type OPOS Dispense Status ISSUED [...] 8.5 (H) 0.0 - 5.0 % SO2 (oren) arterial 91 90 - 95 % Total [...] PM Result Value Ref Range Product code R6189Z22 Unit Number [id number] Product Blood Type APOS Dispense Status ISSUED Product code L7901F73 Unit Number [id number] Product Blood Type APOS Dispense Status CROSSMATCHED [...] PM Result Value Ref Range Product code M7961S87 Unit Number [id number] Product Blood Type APOS Dispense Status CROSSMATCHED Prepare plasma: 1 Units Standard plasma Collection Time: 10/17/23 3:32 PM Result Value Ref Range Product code A1698P98 Unit Number [id number] Product Blood Type APOS Dispense Status ISSUED [...] venous catheter overlies the superior vena cava. [place]-Daniel catheter tip projects over the main pulmonary artery. Left thoracostomy tube and mediastinal drain. Gastric tube courses caudally beneath left hemidiaphragm out of the [id number]. Lung volumes are small with minimal bibasilar [...] Performed by: Anesthesiologist: Ayden Alan MD 1st NEEDLE LOOM OPERATOR: Ravi Thacker CRNA Preprocedure checklist: patient identified, [...] code: LEIA placement and diagnostic exam, non-congenital (03861) ICD code(s) for medical necessity: I35.2 - [...] inferior: hypokinetic 16- Apical septal: hypokinetic 17- [place]: hypokinetic Valves: Aortic Valve: Annulus: calcified Leaflet [...] valve: Annulus: normal Stenosis: none Regurgitation: trace ([place] -Daniel is transvalvular) Aorta: Ascending aorta: Size: [...] Rate: 61 bpm RR Interval: 981 msec [place] Interval: 235 msec QRS Duration: 150 msec QT Interval: 447 msec QTC Interval: 449 msec P-R-T [place]: 70 - -11 - 134 degrees IMPRESSION: SINUS RHYTHM WITH FIRST DEGREE AV BLOCK LEFT BUNDLE BRANCH BLOCK ABNORMAL ECG Electronically Signed By: Payam White MD Transthoracic Echo (TTE) Complete W Doppler/CF Result Date: 10/16/2023 Narrative: [id number] [place] [address] ECHOCARDIOGRAM Patient Name: JUVENAL GARVIN C : 1970 Study Date: 10/16/2023 11:39:54 AM Gender: M Tech: Location: [id number] Ref Provider: GUERLINE RODRIGUEZ Height(Cm): 178 BSA: 2.5 Weight(Kg): 126.1 BP: 125/75 Order Provider: GUERLINE RODRIGUEZ - PROCEDURES: Echocardiographic Report: Transthoracic Echocardiogram with 2D, M-Mode, Spectral and Color Flow Doppler examination and administration of intravenous contrast. INDICATIONS: Coronary artery disease, [place] vessel. Measurements: 2D/M Mode Doppler Measurement Value [...] PG 2 mmHg MV E Peak Rob[place] 1.4[ 0.6 - 1.3 ] m/s MV A [place] 0.4 [ 1.0 - 1.2 ] m/s MV PHT 78.0 [ 20.0 - 100.0 ] ms MV Decel Ucsc188.4 [ 104.0 - 258.0 ] ms MVA [...] hypokinesis. More focal hypokinesis of the apex. EjectionFraction is measured at ([place]) 30 %. Right Ventricle: Low normal right ventricular systolic function. Left Atrium: There is moderate enlargement of the left atrium. Right Atrium: The right atriumis normal in size. Atrial Septum: Normal appearing [...] regurgitation. Electronically Signed By: Dimitrios Ames MD, [facility] 2023-10-16 17:01:58 TROMPER XR Chest PA Lateral 2 View Result [...] Rate: 61 bpm RR Interval: 981 msec [place] Interval: 235 msec QRS Duration: 150 msec QT Interval: 447 msec QTC Interval: 449 msec P-R-T [place]: 70 - -11 - 134 degrees IMPRESSION: [...] Heparin as noted above. Dilip Cohen MD [facility] 10/17/2023 4:24 PM PER * Carly Spencer RD - 10/16/2023 5:26 PM CST Initial Nutrition Assessment Reason for Assessment: Initial Nutrition Assessment Encounter Date: 10/16/23 5:26 PM Nutrition Evaluation: Patient is a 53 y.o. male. Admit Dx: CAD in [place] artery [I25.10]. Admitted on 10/13/2023, current LOS [...] Dialysis patient (CMS/HCC) (HCC) ESRD on dialysis ([facility]/HCC) (HCC) GERD (gastroesophageal reflux disease) Hyperlipidemia Hypertension [...] Carbohydrate Diet effective now Question Answer Comment ([facility]) Diet type Restricted Diabetic: Consistent Carbohydrate 10/14/23 0841 Nutrition Needs Calculations: Calculated Energy Needs Using Equations Weight: 126.2 kg (278 lb 3.5 oz) Height: 177.8 cm (5' 10 ) Estimated Protein Needs Type of Weight Used for Estimated Protein : [place] Protein Needs Based on g/k.4 Total Protein Estimated Needs (gm): 105.42 Kcal/kg Type of Weight Used for Estimated Kcals: [place] Kcal/k Total Kcal/kg Estimated Needs : 2259 Nutritional Needs and Diagnosis: Nutrition Diagnosis 1: Increased nutrient needs (protein) Related to: (CABG scheduled for 10/17/23) Intervention and Monitoring: Goals: Adequate nutrition to meet estimated needs by next assessment Interventions: Medical food supplement, Encouragement Monitoring and Evaluation: Plan of care, Labs, PO intake Carly Spencer RD,LD PER * Chula Valera PA - 10/16/2023 3:25 PM CST Images from the original note were not included. Nephrology Juvenal Garvin Jr. - 1970 Primary : Aditya Correa MD History and interval events: 53-year-old gentleman with history of type 1 diabetes mellitus on insulin pump, CHF, CAD, ESRD on peritoneal dialysis initially presented to [facility] in [facility] on October 09 for symptoms [...] vitamin-D Resume Phoslo with meals LESLY Ortiz [facility]: MD Chula Domínguez PA Graeme Mindel, MD Justin Krafft, PA Derek Larson, MD FASN Rose Mattli, NP Rohan Devanpalli, MD Candace Shirley, NP [address] - [address] [place] [address] [phone] Office [phone] - Fax PER * Nona Alcala PA - 10/16/2023 2:25 [...] 95 % Cardiac Rhythm: sinus I/O: Date 10/15/23699 - 10/16/2365810/16/23699 - 10/17/23 0659 Shift 8737-6459 9592-0590 24 Hour Total 3271-0985 6588-8645 24 Hour Total INTAKE P.O. 300 300 200 200 Other 3500 3500 Shift Total(mL/kg) 300(2.4) 3500(28.1) 3800(30.5) 200(1.6) 200(1.6) OUTPUT Other 2141 2141 Shift Total(mL/kg) 2141(17) 2141(17) NET 300 3500 3800 -1941 -1941 Weight (kg) 124.5 124.5 124.5 [...] ASSESSMENT - coronary artery disease with prior RI and multiple prior stents - severe aortic [...] and AVR Discussed with LESLY Vallecillo 10/16/2023 PER * Emiliana Dickson NP - 10/16/2023 11:13 [...] and affect appropriate -Cardiac Cath (10/13/23 at [facility]): LM no dz. LCX 99% ostial stenosis and 90% stenosis atOM/LCX bifurcation. LAD mild diffuse disease in the ostium with a 90% stenosis at the origin of a very small high diagonal branch and otherwise mild LAD disease. RCA 99% mid stenosis. -Echo (10/11/23 at [facility]): LVEF 20-25%, moderate ASSESSMENT/PLAN: 1. CAD: [...] Heparin as noted above. Emiliana Dickson NP [facility] 10/16/2023 11:13 AM Cosigned by Kota Stover MD at 10/16/2023 2:15 PM TROMPER PER PER * Frank Cody MD - 10/16/2023 9:34 AM CST [facility] [place] [facility] Hospitalist Service Progress Note Chief complaint [...] not displayed. Assessment/Plan: Principal Problem: CAD in [place] artery # CAD with NSTEMI, aortic stenosis, paroxysmal afib Cath at [facility] showed multivessel disease, and Echo showed EF 25%, severe aortic stenosis. Transferred to [facility] for possible surgery. - possible CABG and AVR on Tuesday 10/17, not yet scheduled - hold Eliquis, continue heparin gtt for now, hold for procedures - continue aspirin, atorvastatin, Zetia, gemfibrozil, Imdur 60, metoprolol 50 BID, Ranolazine 500 BID. Adjustments per Cardiology ([facility]) # T1DM with DKA [...] Medical decision-making: moderate complexity Frank Cody MD PER * Pradeep Reeves NP - 10/15/2023 11:21 AM CST Cardiology Daily Progress - [facility] SUBJECTIVE: Mr. Garvin is doing well in [...] units/mL) infusion (premix) 0-33 Units/kg/hr 12.1 Units/kg/hr (10/14/230) PRN Medications Medication Dose Route Frequency Last [...] and affect appropriate -Cardiac Cath (10/13/23 at [facility]): LM no dz. LCX 99% ostial stenosis and 90% stenosis atOM/LCX bifurcation. LAD mild diffuse disease in the ostium with a 90% stenosis at the origin of a very small high diagonal branch and otherwise mild LAD disease. RCA 99% mid stenosis. -Echo (10/11/23 at [facility]): LVEF 20-25%, moderate ASSESSMENT/PLAN: 1. CAD: [...] on Heparin as noted above. SHAMIKA Donald [facility] 10/15/2023 11:21 AM Cosigned by Felipe Robledo DO at 10/26/2023 9:21 AM TROMPER PER PER * Frank Cody MD - 10/15/2023 10:21 AM CST [facility] [place] [facility] Hospitalist Service Progress Note Chief complaint [...] Lab Units 10/15/23 0427 10/14/23 0553 10/14/23 0104 APTT sec 75* < > 68* INR -- -- 1.18 < > = values in this interval not displayed. Assessment/Plan: Principal Problem: CAD in [place] artery # CAD with NSTEMI, aortic stenosis, paroxysmal afib Cath at [facility] showed multivessel disease, and Echo showed EF 25%, severe aortic stenosis. Transferred to [facility] for possible surgery. - possible CABG and [...] Medical decision-making: moderate complexity Frank Cody MD PER * Fernandez Carranza MD - 10/15/2023 9:42 AM CST Images from the original note were not included. Nephrology Juvenal Garvin Jr. - 1970 Primary : Aditya Correa MD History and interval events: 53-year-old gentleman with history of type 1 diabetes mellitus on insulin pump, CHF, CAD, ESRD on peritoneal dialysis initially presented to [facility] in [facility] on October 09 for symptoms [...] a cardiology consultation which lead to a [facility]. Results were notable for severe CAD and [...] Will check phosphorus level Fernandez Carranza MD [facility]: MD Chula Domínguez, MD Renny Flood PA Derek Larson, MD FASN Rose Mattli, NP Rohan Devanpalli, MD Candace Shirley, NP [address] - [address] [place], [place] [address] [phone] - Office [phone] - Fax PER * Frank Cody MD - 10/14/2023 11:39 AM CST [facility] Hospitalist Service Progress Note Chief complaint (on admission): Chest pain, weakness Subjective: Pt had no significant events overnight. 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 This morning, he is alert, comfortable, denies recurrence of chest pain since arrival. His insulin pump was not working at [facility] and he has been using basal/bolus doses. He denies any recent problems with PD, otherwise no complaints. He confirms that he follows with Dr. Ortega ([facility]) and Eric ( Nephrology in [facility]). Objective: Vitals and I/O Temp Min: [...] -- 1.18 Assessment/Plan: Principal Problem: CAD in [place] artery # CAD with NSTEMI, aortic stenosis, paroxysmal afib Cath at [facility] showed multivessel disease, and Echo showed EF 25%, severe aortic stenosis. Transferred to [facility] for possible surgery. Discussed with CT Surgery: - tentatively plan for CABG and AVR Monday - hold Eliquis, continue heparin gtt for now, hold for procedures - continue aspirin, atorvastatin, Zetia, gemfibrozil, Imdur 60, metoprolol 50 BID, Ranolazine 500 BID. Adjustments per Cardiology ([facility]) # T1DM with DKA [...] Medical decision-making: high complexity Frank Cody MD PER * Cruzito Donnelly RPh - 10/14/2023 10:08 AM CST Pharmacy Note - Formulary Substitution Cholecalciferol (Vitamin D3) 50,000 units weekly has been substituted for Ergocalciferol (Vitamin D2) 50,000 units weekly as approved by the [facility] Pharmacy and Therapeutics Committee. Cruzito Donnelly, PharmD, [facility] Clinical Pharmacist 10/14/23 10:04 AM PER documented in this encounter H&P Notes * Dawna Castellanos NP - 10/17/2023 1:44 PM CSTAssociated Order(s): Critical Care Images from the original note were not included. [facility] CVR History & Physical - Patient: Juvenal Garvin . : 1970 Age: 53 y.o. male Admitting Physician: Jaqueline Valero MD Research Worker Encyclopedia: Kirsten Burns MD Shift: [facility] CVR AM HPI: 53-year-old man with a history of ESRD on PD, CAD s/p PCI, RI, and DVT on chronic anticoagulation, Type 1 DM, HTN who presented to [facility] initially on 10/09/23 with general malaise and found to be in DKA and admitted to ICU. During hospitalization found to have elevated Troponins promptedcardiology evaluation and LHC significant for multivessel CAD and subsequently also found aortic stenosis. Transferred to [facility] 10/14/23 for surgical evaluation (10/17/23) s/p CABG x 3 (SVG-PDA, SVG-OM, BRICE-LAD) and mechanical AVR (25 Bello) by Dr. Valero. Anesthesia reported easy airway. Post-procedure LEIA (reported, no note available) on ENTERPRISE INTEGRATION DEVELOPER 5 of inotropicsupport revealed: LVEF 40-50% and normal RV. OR totals include: 2 PRBC, 2 FFP, 10 Cryo, 1 PLT. OR course notable for coagulopathy. Patient arrived to CVR intubated and sedated on Propofol and hemodynamically supported on ENTERPRISE INTEGRATION DEVELOPER 5, NE 0.05. ROS: Unable to obtain, patient intubated and sedated Admitted to the hospital on 10/13/2023 11:18 PM for CAD in [place] artery [I25.10] Hospital Course: (10/17/23) s/p CABG [...] 10/17/23 0659 10/17/23699 - 10/18/23 0659 Shift 6060-5669 1050-0502 24 Hour Total 4094-9207 4256-2374 24 Hour Total INTAKE P.O. 186 674 2133 I.V.(mL/kg) 570(4.5) 570(4.5) 2031(16.1) 2031(16.1) Blood 1142 1142 Other 2500 2500 IV Piggyback 375 375 Shift Total(mL/kg) 680(5.4) 3710(29.4) 4390(34.8) 3548(28.1) 3548(28.1) OUTPUT Urine(mL/kg/hr) 77 77 Other 2142 2803 4945 4000 4000 Blood 1000 1000 Chest Tube 380 380 Shift Total(mL/kg) 2142(17) 2803(22.2) 4945(39.2) 5457(43.2) 5457(43.2) [facility]1462 185 -147 -1074 -2604 Weight (kg) 126.2 126.2 126.2 126.2 126.2 [...] s/p mechanical AVR Post CPB LEIA on ENTERPRISE INTEGRATION DEVELOPER 5 with LVEF 40-50%, normal RV. Arrived on ENTERPRISE INTEGRATION DEVELOPER 5, NE 0.05 with low filling pressures and AAI 90. Initial CI 2.2. - Give Ca+ now while on pressors. - SBP goal 100-120 - Keep ENTERPRISE INTEGRATION DEVELOPER at 5 - Maintain EPW AAI 90 [...] off Insulin drip prior to transfer to [facility]. Insulin pump not working when he presented to ER. Very labile blood sugars on basal/SSI regimen with glucose up to 300s. - Continue Insulin infusion per Silvis protocol - do not turn off drip [...] glycol and bisacodyl suppository PRN. Glycemic control: Silvis Protocol insulin gtt.. Lab Results Component Value [...] by: Dawna Castellanos NP CRITICAL CARE: Team: [facility] CT Shift: AM Level of Billing: Critical [...] plan with the ICU team and other medical/seo consultant staff, making frequent assessments and decisions [...] Kirsten Burns MD at 10/17/2023 6:30 PM TROMPER PER PER * Jaqueline Valero MD - 10/17/2023 7:54 AM CST I have reviewed the H&P, examined the patient, and endorse the findings as written. The patientwishes to receive a mechanical valve. Plan of Care : Based on the above findings, I consider Juvenal Garvin Jr. to be an acceptable risk for : Procedure(s): CORONARY ARTERY BYPASS GRAFT (8:00 start per JS) REPLACEMENT AORTIC VALVE PER Source Note - Guerline Rodriguez PA - 10/14/2023 2:10 PM TROMPER Cardiothoracic Surgery Consultation Patient Name: Juvenal Garvin Jr. Admit Date: 10/13/2023 Admitting Provider: Julio Lopez DO Chief Complaint Multivessel coronary artery disease, aortic valve stenosis History of Present Illness Juvenal Garvin is a 53-year-old male who has been transferred to [facility] for consideration of coronary artery bypass grafting and aortic valve replacement. His past medical history includes severe CAD with previous PCI, paroxysmal atrial fibrillation, type 1 diabetes mellitus, ESRD on peritoneal dialysis, hypertension, hyperlipidemia, and sleep apnea. He presented to [facility] in [place], [place] on 10/09/23 complaining of fatigue, malaise, [...] the catheterization. He has been transferred to [facility] for consideration of coronary artery bypass and aortic valve replacement. He had been receiving Eliquis and Plavix up until transfer to [facility]. Since arrival here he denies any additional chest pain episodes. His glucose levels continue to fluctuate but have reasonably controlled today. Past Medical History: Diagnosis Date CAD (coronary artery disease) Chest pain Diabetes mellitus (HCC) Diabetes mellitus type I (HCC) Dialysis patient ([facility]) (HCC) ESRD on dialysis ([facility]) (HCC) GERD (gastroesophageal reflux disease) Hyperlipidemia Hypertension [...] 0.5-20 mL, 0.5-20 mL, intra-catheter, PRN, Julio Loepz DO Allergies Allopurinol, Chlorhexidine, Chlorhexidine gluconate, Contrast [...] Jaqueline Valero MD at 10/15/2023 10:55 AM TROMPER PER PER PER PER * Vinay Pratt, - 10/14/2023 12:11 AM CST [facility] [place] [facility] Hospitalist Service History and Physical Encounter date: 10/14/23 PCP: Aditya Correa MD Chief Complaint: CAD HPI: has a past medical history of CAD (coronary artery disease), Chest pain, Diabetes mellitus ([facility]), Diabetes mellitus type I ([facility]), Dialysis patient ([facility]) ([facility]), ESRD on dialysis ([facility]) ([facility]), GERD (gastroesophageal reflux disease), Hyperlipidemia, Hypertension, Sleep apnea, and SOB (shortnessof breath). He has no past medical history of Motion sickness or PONV (postoperative nausea and vomiting). 53-year-old gentleman with history of type 1 diabetes mellitus on insulin pump, CHF, CAD, ESRD on peritoneal dialysis initially presented to [facility] in [facility] on October 09 for symptoms [...] (coronary artery disease) Chest pain Diabetes mellitus ([facility]) Diabetes mellitus type I ([facility]) Dialysis patient ([facility]) ([facility]) ESRD on dialysis ([facility]) ([facility]) GERD (gastroesophageal reflux disease) Hyperlipidemia Hypertension Sleep [...] See HPI Assessment/Plan: Principal Problem: CAD in [place] artery CAD -Left heart catheterization done on [...] Expect 2 midnight admission Vinay Pratt DO PER PER documented in this encounter Procedure Notes * Gamal Fox NP - 10/18/2023 6:49 PM CSTAssociated Order(s): Critical Care Post-Procedure Diagnose(s): CAD in [place] artery Day time events ASA Low dose Heparin Warfarin DC D5LR Continue PD Phoslo restart Home PPI AAI 80 ENTERPRISE INTEGRATION DEVELOPER to 4 --->3 DC PAC/cordis Vaso weaned off Consult endo Nausea---alfredo renee Hemodynamic Review HR AAI @ 80, SBP 120-130, MAP 71-87, RAP 7-12 Impression and Plan for Overnight Problems: BEN Place on nasal CPAP @ HS, prior nausea/ vomiting, avoiding full face to reduce risk of aspiration Hypertension SBP goal < 130, ENTERPRISE INTEGRATION DEVELOPER @ 3 mcg, weaning to 2 mcg w/ plans to wean q6h for Scv02 >65 PONV Given haldol during day for nausea/ vomiting, scopolamine patch added at change of shift AM labs reviewed/Updates-> Tolerating cpap, on pd cycler, hypertensive, ENTERPRISE INTEGRATION DEVELOPER weaned off, will change from AAI pacing if remainshypertensive. Assessment and plan has been reviewed with CT Surgery & ICU attending on 10/18/23. Gamal Fox NP This note may have been dictated with voice-recognition software, senior abap developer so senior abap developer errors may be present. NOTICE: The above [...] by: Gamal Fox NP CRITICAL CARE: Team: [facility] CT Shift: PM Level of Billing: Critical [...] plan with the ICU team and other medical/seo consultant staff, making frequent assessments and decisions [...] Kirsten Burns MD at 10/19/2023 11:50 AM TROMPER PER PER * Gamal Fox NP - 10/17/2023 6:42 PM CSTAssociated Order(s): Critical Care Post-Procedure Diagnose(s): CAD in [place] artery Physical exam: intubated, sedated, perrl A paced, signals doppled to BLE Orally intubated, Lungs diminished throughout NPO, abdomen obese, soft, absent bowel sounds, OGT to LIWS R leg w/ SVG site TICKET AGENT, wound vac to sternum R rad AL, RIJ PAC/QLC Day time events Keep intubated and sedated tonight Ca+ DDAVP Keep ENTERPRISE INTEGRATION DEVELOPER 1 PRBC, 2 FFP Plan for PD [...] may have been dictated with voice-recognition software, senior abap developer so senior abap developer errors may be present. NOTICE: The above [...] by: Gamal Fox NP CRITICAL CARE: Team: [facility] CT Shift: PM Level of Billing: Critical [...] plan with the ICU team and other medical/seo consultant staff, making frequent assessments and decisions [...] Kirsten Burns MD at 10/18/2023 9:16 AM TROMPER PER PER documented in this encounter Consult Notes * Loraine Medina RN - 10/23/2023 12:00 PM CST Juvenal Garvin Jr. [id number] Jaqueline Valreo MD Pre-Education Assessment Units of Service: 1 [...] Name: Juvenal Garvin Jr. : 1970 Room/Bed: [place] [address]/[address] Patient has had diabetes for NUMEROUS [...] Value Date HGBA1C 8.1 (H) 10/16/2023 Pump Machine Shop Repair Technician: OMNIPOD Insulin Brand: NOVOLIN Does patient have supplies with them?: YES Bolus Wizard On?: YES INSULIN PUMP SETTINGS Total Daily Basal (TDB): 54 Basal Rates: 0000: 3.0 0800: 1.5 2000: 3.0 Insulin to Carb Ratio: 1:9 Sensitivity: 25 Target: 120 Active Insulin Time (AIT): 4 HOURS Thank you for this consult, Loraine Medina RN, Generator Operator 10/23/2023 12:44 PM PER * Loraine Medina RN - 10/20/2023 10:45 AM CSTAssociated Order(s): IP CONSULT TO PARTS COUNTER SALESPERSON Juvenal Garvin Jr. [id number] [place] [id number] Jaqueline Valero MD Pre-Education Assessment Units of [...] questions or concerns at this time. Loraine Medina RN, Generator Operator 10/20/2023 11:27 AM PER * Augustin Bethea MD - 10/18/2023 10:51 [...] ketoacidosis, elevated cardiac enzymes. Further evaluation with [facility] revealed multivessel coronary artery disease. Patient transferred to [facility] [place] [facility] for CABG. Patient underwent CABG x 3, mechanical AVR . Endocrine diabetes management. Hemoglobin A1c noted to be 8.1% 10/14, Patient has an insulin pump at home, not review his setting as the pump not available bedside. Patient continues to be confused and could not provide any history From endocrinology note in the past at [facility] 2021: BASAL RATE TOTAL BASAL DAILY DOSE: 65.85 units 0330 1.7 units/hour 0800 0.8 units/hour 1999 5.8 units/hour ICR: 1:6.5 SENSITIVITY: 1:25 IAT: [...] PUMP: Continue Omnipod 5 insulin pump with Ozmosis G6 CGM at home settings: TIME BASAL [...] high Assessment /Plan Principal Problem: CAD in [place] artery 1. Uncontrolled type 1 diabetes, A1c [...] don't hesitate to call. Augustin Bethea MD [facility] [email or web address] Office phone: [phone] Office fax: [phone] PER PER * Fernandez Carranza MD - 10/14/2023 3:27 PM CSTAssociated Order(s): IP CONSULT TO NEPHROLOGY Images from the original note were not included. Nephrology Juvenal Garvin Jr. - 1970 Primary : Aditya Correa MD History and interval events: 53-year-old gentleman with history of type 1 diabetes mellitus on insulin pump, CHF, CAD, ESRD on peritoneal dialysis initially presented to [facility] in [facility] on October 09 for symptoms [...] him to hemodialysis perioperatively Fernandez Carranza MD [facility]: MD Chula Domínguez PA Graeme Mindel, MD Justin Krafft, PA Derek Larson, MD FASN Rose Mattli, NP Rohan Devanpalli, MD Candace Shirley, ROBERTO [address] [place], [place] [address] [phone] - Office [phone] - Fax PER PER * Guerline Rodriguez PA - 10/14/2023 2:10 PM CSTAssociated Order(s): IP CONSULT TO CARDIOTHORACIC SURGERY Cardiothoracic Surgery Consultation Patient Name: Juvenal Garvin Jr. Admit Date: 10/13/2023 Admitting Provider: Julio Lopez DO Chief Complaint Multivessel coronary artery disease, aortic valve stenosis History of Present Illness Juvenal Garvin is a 53-year-old male who has been transferred to [facility] for consideration of coronary artery bypass grafting and aortic valve replacement. His past medical history includes severe CAD with previous PCI, paroxysmal atrial fibrillation, type 1 diabetes mellitus, ESRD on peritoneal dialysis, hypertension, hyperlipidemia, and sleep apnea. He presented to [facility] in [place], [place] on 10/09/23 complaining of fatigue, malaise, [...] the catheterization. He has been transferred to [facility] for consideration of coronary artery bypass and aortic valve replacement. He had been receiving Eliquis and Plavix up until transfer to [facility]. Since arrival here he denies any additional chest pain episodes. His glucose levels continue to fluctuate but have reasonably controlled today. Past Medical History: Diagnosis Date CAD (coronary artery disease) Chest pain Diabetes mellitus (HCC) Diabetes mellitus type I (HCC) Dialysis patient ([facility]) (HCC) ESRD on dialysis ([facility]) ([facility]) GERD (gastroesophageal reflux disease) Hyperlipidemia Hypertension Sleep [...] 50 mg, 50 mg, oral, Q12H, Vinay Pratt DO, 50 mg at 10/14/23 0217 NIFEdipine [...] mg, 40 mg, oral, Daily, Vinay Pratt, DO, 40 mg at 10/14/23 0844 ramelteon (ROZEREM) tablet 8 mg, 8 mg, oral, Nightly PRN, Julio Lopez DO ranolazine ER (RANEXA) extended release tablet 500 mg, 500 mg, oral, BID, Vinay Pratt, DO, 500 mg at 10/14/23 0844 sodium chloride 0.9% flush 0.5-20 mL, 0.5-20 mL, intra-catheter, Q8H ASHLEY, Julio Lopez DO, 10 mL at 10/14/23 0105 sodium chloride 0.9% flush 0.5-20 mL, 0.5-20 mL, intra-catheter, PRN, Julio Lpoez DO Allergies Allopurinol, Chlorhexidine, Chlorhexidine gluconate, Contrast [...] Jaqueline Valero MD at 10/15/2023 10:55 AM TROMPER PER PER PER PER Associated attestation - Jaqueline Valero MD - 10/15/2023 10:55 AM TROMPER I have seen and examined the patient, reviewed the electronic medical record, personally reviewed the patient's cardiac catheterization, and agree with the attached history and physical. In brief, he is a 53-year-old man with a history of end-stage renal disease on peritoneal dialysis,myocardial infarction, multiple prior coronary stenting procedures, and DVT who presented to [facility] with progressive exertional shortness breath, chest pain, and hyperglycemia. Repeat cardiac catheterization there revealed progressive coronary artery disease, which is now severe in all 3main coronary arteries. His left ventricular systolic function was abnormal and an echocardiogram there revealed significant aortic valve stenosis. And severe left ventricular systolic dysfunction. He was transferred to [facility] for further workup and treatment. ASSESSMENT: [...] for Monday. Jaqueline Valero MD Cardiothoracic Surgery [facility] * Pradeep Reeves, ROBERTO - 10/14/2023 12:13 PM CSTAssociated Order(s): IP CONSULT TO CARDIOLOGY Cardiology Consult - [facility] Reason For Consult: CAD Requesting Provider: Frank Cody MD SUBJECTIVE: Chief Complaint/History of Present Illness: Mr. Garvin is a 53 y/o man with hx of hypertension, dyslipidemia, diabetes, CAD s/p multiple prior PCI, ESRD, paroxysmal atrial fibrillation and DVT and BEN. The patient presented to [facility] with a complaint of hyperglycemia. He [...] on his echo. He was transferred to [facility] for CTS evaluation. He is on a Heparin gtt at present. He denies any chest pain or shortness of breath at rest and denies any palpitations, lightheadedness and syncope. Review of Systems: Review of systems per HPI and otherwise all other systems are negative Past Medical History: Diagnosis Date CAD (coronary artery disease) Chest pain Diabetes mellitus (HCC) Diabetes mellitus type I (FORM[facility]) Dialysis patient ([facility]) ([facility]) ESRD on dialysis ([facility]) ([facility]) GERD (gastroesophageal reflux disease) Hyperlipidemia Hypertension Sleep [...] PUMP: Continue Omnipod 5 insulin pump with inWebo Technologiescom G6 CGM at home settings: TIME BASAL [...] and affect appropriate -Cardiac Cath (10/13/23 at [facility]): LM no dz. LCX 99% ostial stenosis and 90% stenosis atOM/LCX bifurcation. LAD mild diffuse disease in the ostium with a 90% stenosis at the origin of a very small high diagonal branch and otherwise mild LAD disease. RCA 99% mid stenosis. -Echo (10/11/23 at [facility]): LVEF 20-25%, moderate ASSESSMENT/PLAN: 1. CAD: [...] please don't hesitate to call. SHAMIKA [facility] 10/14/2023 12:13 PM Cosigned by Felipe Robledo DO at 10/15/2023 10:13 AM TROMPER PER PER PER PER documented in this encounter Nursing Notes * [...] gone over with pt. F/u visits and 's phone numbers highlighted. Extra supplies sent with [...] (Comments): blister-popped Wound Status Healing Site Assessment Larke;Moist Marie-wound Assessment Fragile;Flaky;Dry;Erythematous Margins Defined edges Closure Unapproximated Drainage Amount Small Drainage Description Serous Drainage Odor No odor Dressing Status New Dressing Silver foam;Gauze rolled Interventions Cleansed Recommendations: paper inserter to complete Polymem dressing as ordered. Pressure injury prevention measures dn moisture management in place. Education: Plan of Care discussed with: Patient, paper inserter Questions answered: YES Wound/Ostomy will follow patient: [...] high Assessment /Plan Principal Problem: CAD in [place] artery 1. Uncontrolled type 1 diabetes, A1c [...] 25 mcg daily. Discussed with pt. Patrick I am out of town till 11/14. Pl call center receptionist provider. Once ready per primary team can [...] don't hesitate to call. Augustin Bethea MD [facility] [email or web address] Office phone: [phone] Office fax: [phone] * Plan of Care - Jessica Rodriguez [...] PUMP: Continue Omnipod 5 insulin pump with Ozmosis G6 CGM at home settings: TIME BASAL [...] high Assessment /Plan Principal Problem: CAD in [place] artery 1. Uncontrolled type 1 diabetes, A1c noted to be 8.1% 10/14, BG 200's, advised to bolus Q4hrs with PD. On Omnipod pump, Dexcom G6 Pump setting, Basal settin >>>5.5units an hour 10:00 p.m. to 8:00 a.m., 3.2 units 8:00 a.m. to 10:00 p.m. Bolus setting carb ratio 5>>>7, correction factor 15>>.20 Levothyroxine 25 mcg daily. Discussed with pt. Celina once ready per [...] don't hesitate to call. Augustin Bethea MD [facility] [email or web address] Office phone: [phone] Office fax: [phone] * Post-Procedure Note - Basilia John RN [...] THIS IS FOR THE INSULIN PUMP: Continue iFrat WarsipPrizzm 5 insulin pump with Ozmosis G6 CGM at home settings: TIME BASAL [...] high Assessment /Plan Principal Problem: CAD in [place] artery 1. Uncontrolled type 1 diabetes, A1c [...] don't hesitate to call. Augustin Bethea MD [facility] [email or web address] Office phone: [phone] Office fax: [phone] * Post-Procedure Note - Basilia John RN [...] 10/30/2023 2:42 PM CDT Received notification from [facility] acute rehab health care liaison, Carey Phillips , patients [employer] Medicare insurance denied request for authorization for inpatient acute rehab . Peer to peer offered at [phone] opt 4.peer to peer needs to be requested by 1200 noon tomorrow, 10/30. Reference no. [id number]. Member ID no. [id number]. Guerline GRACE notified of above. * Consults, [...] high Assessment /Plan Principal Problem: CAD in [place] artery 1. Uncontrolled type 1 diabetes, A1c noted to be 8.1% 10/14, BG 200's, advised to bolus Q4hrs with PD. On Omnipod pump, Dexcom G6 Pump setting, Basal settin.5 >>>3 units an hour 10:00 p.m. to 8:00 a.m., 2.5>>>1.8. units 8:00 a.m. to 10:00 p.m. Bolus setting carb ratio 7>>>9, correction factor 20>>.25 Levothyroxine 25 mcg daily. Discussed with pt. Dispo once ready per [...] don't hesitate to call. Augustin Bethea MD [facility] [email or web address] Office phone: [phone] Office fax: [phone] * Post-Procedure Note - Sugar Swanson RN - 10/30/2023 8:35 AM CDT Peritoneal Dialysis Treatment Summary: Juvenal Michael Garvin Jr. received peritoneal dialysis on 10/29/2023 [...] Afebrile. Room air. NSR. Pain treated with Arapahoe. ABX started for patients right leg.Lower dopplers [...] Room air. NSR. Patient pain treated with Arapahoe. Left herman dressing changed x1 due to leaking. PER * Plan of Care - Roel West LCSW - 10/28/2023 3:40 PM CST Emergency Communications Dispatcher covering and followed up with request to learn if patient was approved for inpatient rehabilitation/insurance authorization status. SW inquired with Dr. Mya Frederick and awaiting notification. Intake Coordinators are not on-site and not customary to receive notification from insurance on weekend. PER * Consults, Subsequent - Augustin Bethea MD - 10/28/2023 2:50 PM TROMPER Endocrine Note Reason for Consult: type 1 [...] THIS IS FOR THE INSULIN PUMP: Continue iFrat WarsipPrizzm 5 insulin pump with Ozmosis G6 CGM at home settings: TIME BASAL [...] A1C 4.0 - 5.6 % 8.1 (H) 2/26/24 15:27 (H): Data is abnormally high Assessment /Plan Principal Problem: CAD in [place] artery 1. Uncontrolled type 1 diabetes, A1c noted to be 8.1% 10/14, BG 100's, advised to bolus Q4hrs with PD. On Omnipod pump, Dexcom G6 Pump setting, Basal settin units an hour 10:00 p.m. to 8:00 a.m., 1.8. units 8:00 a.m. to 10:00 p.m. Bolus setting carb ratio 9, correction factor 25 Start Levothyroxine 25 mcg daily. Discussed with pt. Celina once ready per [...] don't hesitate to call. Augustin Bethea MD [facility] [email or web address] Office phone: [phone] Office fax: [phone] PER PER * Post-Procedure Note - Basilia John RN - 10/28/2023 7:14 AM TROMPER Peritoneal Dialysis Treatment Summary: Juvenal Garvin . received peritoneal dialysis on 10/27/2023 PD catheter [...] well. Denied any c/o. PD drsg D&I PER * Consults, Subsequent - Augustin Bethea MD - 10/27/2023 5:47 PM TROMPER Endocrine Note Reason for Consult: type 1 [...] THIS IS FOR THE INSULIN PUMP: Continue Parsely 5 insulin pump with Ozmosis G6 CGM at home settings: TIME BASAL [...] high Assessment /Plan Principal Problem: CAD in [place] artery 1. Uncontrolled type 1 diabetes, A1c [...] don't hesitate to call. Augustin Bethea MD [facility] [email or web address] Office phone: [phone] Office fax: [phone] PER * Plan of Care - Genie Benjamin RN - 10/27/2023 12:55 PM CST [facility] inpatient acute facility rehab director pursuing insurance authorization for rehab when patient medically stable for discharge to rehab. PER * Post-Procedure Note - Radha Mercado RN - 10/27/2023 9:15 AM CST Peritoneal Dialysis Treatment Summary: Juvenalfabi Garvin Jr. received peritoneal dialysis on 10/26/2023 [...] Tolerated tx without issues. Effluent clear yellow. PER * Consults, Subsequent - Augustin Bethea MD - 10/26/2023 6:25 PM TROMPER Endocrine Note Reason for Consult: type 1 [...] PUMP: Continue Omnipod 5 insulin pump with inWebo Technologiescom G6 CGM at home settings: TIME BASAL [...] high Assessment /Plan Principal Problem: CAD in [place] artery 1. Uncontrolled type 1 diabetes, A1c [...] don't hesitate to call. Augustin Bethea MD [facility] [email or web address] Office phone: [phone] Office fax: [phone] PER * Plan of Care - Manda Solorzano RN - 10/26/2023 12:06 PM CST Per , pt has been accepted to [facility] Rehab (auth pending). Pt will be removed from [facility] HH schedule and no services provided at this time. PER * Plan of Care - Jacquelin Veliz MSW - 10/26/2023 10:43 AM CST PATRON ATTENDANT received message from Michelle with [facility] and they are able to accept Pt. They will start insurance authorization as PA feels that Pt is close to discharge. PATRON ATTENDANT met with Pt at bedside [facility] will be [facility] insurance authorization for him. Pt states that he is agreeable to discharging to acute rehab when ready for discharge. PER * Post-Procedure Note - Basilia John RN - 10/26/2023 7:30 AM TROMPER Peritoneal Dialysis Treatment Summary: Juvenal Garvin Jr. [...] well. Denied any c/o. PD drsg D&I PER * Plan of Care - Cyndi Persaud RN - 10/25/2023 4:14 PM CST Goals: Clinical Goals for the Shift: VSS. Afebrile. Room air. NSR. Monitor heart rate and rhythm. Manage pain. Manage heparin drip. Monitor PTTs. PD. Walk x3. Ensure safety and comfort. Summary: VSS. Afebrile. Room air. NSR. Pain treated with a one time dose of Arapahoe. Most recent PTT is 72. Heparin drip at 12.7units/kg/hr. PER * Consults, Subsequent - Augustin Bethea MD - 10/25/2023 11:14 AM TROMPER Endocrine Note Reason for Consult: type 1 [...] PUMP: Continue Omnipod 5 insulin pump with Ozmosis G6 CGM at home settings: TIME BASAL [...] high Assessment /Plan Principal Problem: CAD in [place] artery 1. Uncontrolled type 1 diabetes, A1c [...] don't hesitate to call. Augustin Bethea MD [facility] [email or web address] Office phone: [phone] Office fax: [phone] PER * Post-Procedure Note - Radha Mercado, LUAN - 10/25/2023 10:08 AM CST Peritoneal Dialysis [...] Comments: Tolerated tx well. Effluent clear, yellow. PER * Plan of Care - Carey Alas [...] 20 SpO2: [96 %-98 %] 96 % PER * Consults, Subsequent - Augustin Bethea MD - 10/24/2023 11:07 AM TROMPER Endocrine Note Reason for Consult: type 1 [...] PUMP: Continue Omnipod 5 insulin pump with Ozmosis G6 CGM at home settings: TIME BASAL [...] high Assessment /Plan Principal Problem: CAD in [place] artery 1. Uncontrolled type 1 diabetes, A1c [...] don't hesitate to call. Augustin Bethea MD [facility] [email or web address] Office phone: [phone] Office fax: [phone] PER * Post-Procedure Note - Radha Mercado RN [...] Tolerated tx without issues. Effluent clear yellow. PER * Plan of Care - Lucinda Mathews [...] during sleep periods will improve Outcome: Progressing PER PER PER * Plan of Care - Carey Alas [...] 20 SpO2: [95 %-99 %] 95 % PER * Plan of Care - Genie Benjamin RN - 10/23/2023 12:17 PM CST PT/OT recommending inpatient acute rehab at discharge. Informed patient of above. Patient declined rehab facility list and states he prefers [facility] inpatient acute rehab hospital. Referral sent. Response pending. PER * ECIN Note - Genie Benjamin RN [...] presents for surgical intervention on 10/14/23 from [facility]. Pt is s/p CABG x 3 (SVG-PDA, SVG-OM, BRICE-LAD) and mechanical AVR on 10/[address] Valero. Pt has history of ESRD on PD, CAD s/p PCI, RI, and DVT on chronic anticoagulation, Type 1 DM, HTN.-HK Occupational Therapy-Patient Goal -- I want to go back home. -HK Precautions Cardiac sternal;Fall risk;Drains -KB Cardiac sternal;Drains;Fall risk -HK Precaution Handout Issued -- Yes -HK Precaution Comments -- Pt was educated on sternal precautions, but due to drowsiness would benefit from further education. -HK Type of Home -- House -HK Home Layout -- One level - Home Access -- Stairs to enter without rails -HK Entrance Stairs-Number of Steps -- 1 -HK Bathroom Shower/Tub -- Tub/shower unit -HK Bathroom Toilet -- Standard - Home Mobility Equipment-Available -- Single point cane - Home Mobility Equipment-Currently Using -- Single point cane Uses occassionally -HK Additional Comments -- Pt independent with transfers and mobility at baseline. 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 -HK Grooming: Where assessed -- Chair -HK Grooming: Level of assistance -- Minimum Assist Pt exhibiting functionally weak survey engineer strength and fine motor skills with BUEs. [...] -HK Clinical Progression -- -- Post pain 10/28 -HK Pain Interventions -- Medication (See MAR) -HK [...] deficit;Decreased functional mobility;Decreased ADL independence;Decreased IADL independence - Plan -- Continue with current plan;If this is the last note, consider this the discharge summary - OT Recommendation -- Post-Acute Therapy -HK OT Frequency during current admission -- 3-5x/wk -HK Treatment/Interventions during current admission -- ADL/IADL retraining;Balance Training;Bed mobility;Endurance training;Functional activity;Functional mobility training;Functional transfer training -HK Progress during current admission -- Progressing toward goals - OT Evaluation Complete -- Yes - User Jackson (r) = Recorded By, (t) = Taken By, (c) = Cosigned By Initials Name Effective Dates Saulo Kimball COTA 09/14/23 - Reyes Odom 09/01/23 - OT Treatment Row Name 10/23/23 0710 10/20/23 1440 10/18/23 0655 Session Type Treatment - Treatment -KB -- OT Received On 10/23/23 -KB 10/20/23 -KB 10/18/23 -MM Safe Environment -- Arm band checked - -- Subjective -- Agreeable to Therapy - -- Subjective Comment -- Patient states that [...] in room - 0 - No pain - -- Clinical Progression Not changed -KB Not changed - -- Response to Interventions Partial pain relief -KB -- -- Grooming: Where assessed Chair - Chair - -- Grooming: Level of assistance Standby Assist -KB Standby Assist - -- Grooming: Assistance with Wash/dry face -KB Teeth care;Wash/dry face - -- Bathing: Where assessed Sitting;Standing;Chair -KB -- [...] -- Moderate assist santa/doff B socks with slide developer and sock aid,Minimal assist santa/doff sweatpants with slide developer -KB -- Bed Mobility Comments 1 SBA [...] Dates KB Saulo Kimball COTA 09/14/23 - Suzie Chavez OT 05/10/23 - OT Notes Notes from 10/21/23 [...] requiring multiple vasopressors: will re-attempt PT evaluation -AM Additional Pertinent History 53 y/o M presents for surgical intervention on 10/14/23 from [facility]. Pt is s/p CABG x 3 (SVG-PDA, SVG-OM, BRICE-LAD) and mechanical AVR on 10/[address] Valero. 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 Pt is s/p CABG x 3 (SVG-PDA, SVG-OM, BRICE-LAD) and mechanical AVR on 10/[address] Valero. Pt has history of ESRD on PD, CAD s/p PCI, RI, and DVT on chronic anticoagulation, Type 1 [...] Initials Name Effective Dates SS Nida Starr, AUTOMATIC DRILLING MACHINE OPERATOR 06/30/22 - Eliana Joiner, PT 12/05/22 - Gustavo Olivas, PT 04/10/23 - PT Notes 10/21/2023 10:25 AM Progress Notes signed by Gina Mason DPT 10/23/2023 11:53 AM Progress Notes signed by Gustavo Swan, PT , AUTOMOTIVE MAINTENANCE TECHNICIAN Eval and Treat Last 72 Hours AUTOMOTIVE MAINTENANCE TECHNICIAN Evaluation No documentation. AUTOMOTIVE MAINTENANCE TECHNICIAN Treatment No documentation. Clinical Swallow Study No documentation. AUTOMOTIVE MAINTENANCE TECHNICIAN Notes Notes from 10/21/23 through 10/23/23 No notes of this type exist for this encounter. PER * Consults, Subsequent - Augustin Bethea MD - 10/23/2023 10:48 AM TROMPER Endocrine Note Reason for Consult: type 1 [...] PUMP: Continue Omnipod 5 insulin pump with inWebo Technologiescom G6 CGM at home settings: TIME BASAL [...] high Assessment /Plan Principal Problem: CAD in [place] 1. Uncontrolled type 1 diabetes, A1c [...] don't hesitate to call. Augustin Bethea MD [facility] [email or web address] Office phone: [phone] Office fax: [phone] PER * Post-Procedure Note - Radha Mercado RN - 10/23/2023 10:39 AM CST Peritoneal Dialysis [...] Tolerated tx without issues. Effluent clear, yellow. PER * Plan of Care - Jessica Rodriguez [...] impaired skin integrity will decrease Outcome: Progressing PER * Post-Procedure Note - Rayna Be RN - 10/22/2023 12:03 PM TROMPER Peritoneal Dialysis Treatment Summary: Juvenal Garvin Jr. [...] dwell time. Added dwell time 7 minutes. PER * Plan of Care - Hermes Savage RRT - 10/22/2023 7:30 AM CST Problem: Obstructive Sleep Apnea (BEN) Goal: Patients ability to maintain adequate ventilation during sleep periods will improve Outcome: Progressing Positive Expiratory Pressure Therapy Patient educated on goals of vibratory PEP therapy. Will continue to monitor patient technique and encourage use of Vibratory PEP device. Patient educated on effective cough and deep breathing at this time. PER * Plan of Care - Jessica Rodriguez [...] impaired skin integrity will decrease Outcome: Progressing PER * Consults, Subsequent - Augustin Bethea MD - 10/21/2023 4:43 PM TROMPER Endocrine Note Reason for Consult: type 1 [...] high Assessment /Plan Principal Problem: CAD in [place] 1. Uncontrolled type 1 diabetes, A1c [...] don't hesitate to call. Augustin Bethea MD [facility] [email or web address] Office phone: [phone] Office fax: [phone] PER * Plan of Care - Hermes Savage, FANY - 10/21/2023 7:43 AM CST Problem: Obstructive Sleep Apnea (BEN) Goal: Patients ability to maintain adequate ventilation during sleep periods will improve Outcome: Progressing Positive Expiratory Pressure Therapy Patient educated on goals of vibratory PEP therapy. Will continue to monitor patient technique and encourage use of Vibratory PEP device. Patient educated on effective cough and deep breathing at this time. PER * Post-Procedure Note - Sugar Swanson RN [...] fibrin. Dr. Martinez notified of all findings. PER * Plan of Care - Dominique Fuentes RRT - 10/20/2023 8:19 PM CST Problem: Respiratory Goal: Achieves optimal ventilation and oxygenation Outcome: Progressing Positive Expiratory Pressure Therapy Patient educated on goals of PEP therapy. Will continue to monitor patient technique and encourage use of PEP device. Patient educated on effective cough and deep breathing at this time. PER * Plan of Care - Summer Pradhan [...] except when coughing. Tylenol given. Comfort/safety ensured. PER * Consults, Subsequent - Augustin Bethea MD - 10/20/2023 3:50 PM TROMPER Endocrine Note Reason for Consult: type 1 [...] PUMP: Continue Omnipod 5 insulin pump with Ozmosis G6 CGM at home settings: TIME BASAL [...] high Assessment /Plan Principal Problem: CAD in [place] 1. Uncontrolled type 1 diabetes, A1c [...] don't hesitate to call. Augustin Bethea MD [facility] [email or web address] Office phone: [phone] Office fax: [phone] PER * Post-Procedure Note - Sugar Swanson RN [...] Dressing c/d/I. Clear yellow effluent with fibrin. PER * Plan of Care - Hermes Savage [...] to monitor sputum amount, color, and consistency. PER * Plan of Care - Campos Farmer [...] labs, titrate heparin to therapeutic, pain control PER * Consults, Subsequent - Augustin Bethea MD - 10/19/2023 7:08 PM TROMPER Endocrine Note Reason for Consult: type 1 [...] PUMP: Continue Omnipod 5 insulin pump with Ozmosis G6 CGM at home settings: TIME BASAL [...] high Assessment /Plan Principal Problem: CAD in [place] artery 1. Uncontrolled type 1 diabetes, A1c [...] don't hesitate to call. Augustin Bethea MD [facility] [email or web address] Office phone: [phone] Office fax: [phone] PER * Plan of Care - Toña Saha, FANY - 10/19/2023 3:36 PM CST Problem: Respiratory [...] protocol. Wean FiO2 to maintain SpO2 >92%. PER * Post-Procedure Note - Sugar Swanson RN [...] Clear yellow effluent with fibrin. MD notified. PER * Plan of Care - Ken Martell RRT - 10/18/2023 10:25 PM CST NPPV Patient is tolerating non-invasive ventilation well. Mask fits well with minimal leak. No skin break down noted. Will continue to monitor and titrate per MD order. PER * Provider Query - Dawna Castellanos NP - 10/18/2023 6:36 PM CST The documentation is unclear. Please clarify the 10/17 documentation of NSTEMI. (See Criteria Below). ___ Hx of NSTEMI (Greater than 28 days ago) _x__ Acute NSTEMI occurred at OSH and pt transferred to [facility] for continued care for NSTEMI ___ Other (Specify): Provider Response: Clinical Indicators/Treatment: - Per EPIC: Hx of NSTEMI in June 2022 - Transfer from OSH with CAD and - 10/17 PN: NSTEMI s/p CABG...During hospitalization found to have elevated Troponins prompted cardiology evaluation and LHC significant for multivessel CAD and subsequently also found aortic stenosis. - 10/18 PN : CAD.. Prior RI and multiple PCI.. the patient underwent cardiac cath that showed multivessel disease. - Labs/Notes from OSH not available - Treatment: CABG: References: Fourth [place] Definition of Myocardial Infarction Myocardial Infarction Diagnosis of myocardial infarction requires: Elevated troponin blood test (troponin value above 99th percentile upper reference limit) AND at least one of the following: Symptoms of acute myocardial ischemia (Types 1-5 RI) Clinical evidence of ischemia, as evidenced in an EKG showing new ischemic changes (Type 1, Type 2,Type 3, or Type 4a RI) Development of pathological Q waves (Types 1-5 RI) Imaging evidence of new loss of viable myocardium or new regional wall motion abnormality in a pattern consistent with an ischemic etiology (Types 1-5 RI) Identification of a coronary thrombus by angiography including intracoronary imaging or by autopsy (Type 1 RI only) Angiographic findings consistent with procedural flow-limiting [...] Guidelines for Coding and Reporting, 2019 Fourth [place] Definition of Myocardial Infarction, Scot Uriostegui, et al., Journal of [place] [employer] 2018March 2018, http://www.onlinejacc.org/content/early//j.jacc ..1037?_ga=[id number] Fourth [place] Definition Separates RI From Myocardial Injury, Rolly Freeman, [employer], April 15, 2018, [email or web address] [place] definition of myocardial infarction, Joint ESC/ACCF/AHA/WHF Task [...] become part of the patient???s medical record. PER * Plan of Care - Renetta Keys [...] 2L NC. Pulls 1500 on IS. Occasional RESPIRATORY CARE TECHNICIAN Cough. Insulin gtt continues per orders. Appetite hindered due to nausea and some vomiting this afternoon. Zofran and haldol given. Pt states is better but doesn't want to eat at this time. Will continue to encourage increased activity, IS, Improved appetite, PER * Post-Procedure Note - Sugar Swanson RN [...] and intact and effluent clear and yellow. PER * Plan of Care - Ken Martell RRT - 10/18/2023 3:31 AM CST Mechanical Ventilation Patient is seen on full ventilator support. Patient is synchronous with the ventilator at the time.Will continue to monitor all pertinent lab data, chest radiographs and CT scans when available. Will titrate per MD order. PER * Op Note - Jaqueline Valero MD [...] mm OnX mechanical prosthesis, model #ONXANE, serial #[id number] ) 2. Coronary artery bypass grafting x [...] placement (25 cm) DATE OF PROCEDURE 10/17/2023 TABLE TENDER CEZAR Bernstein ANESTHESIA General Endotracheal Anesthesia ANESTHESIOLOGIST [...] with continuous 6-0 Prolene suture. A retrograde hot dip plater was given, the patient was placed into [...] checked through the bypass grafts with a Glide Doppler flow probe and each was found [...] Physician) Aditya Correa MD (Primary Care Provider) PER * Brief Op Note - Jaqueline Valero MD - 10/17/2023 8:47 AM CST Operative Progress Note Surgical Team: Surgeons and Role: * Jaqueline Valero MD - Primary Anesthesiologist: Ayden Alan MD NEEDLE LOOM OPERATOR: Ravi Thacker CRNA Vice President Client Services: Chang Stout CCP; Fransisco Ziegler CCP Channel Opener Outsoles: Nini Gibbs RN Scrub: Yamilet Bolivar RN; Teresa Dillon ST RNFA: Jessica Frost RN; Carey Weber RN Orientee Channel Opener Outsoles: Dee Ibarra RN DATE OF SURGERY : 10/17/2023 Preoperative Diagnosis: Pre-op Diagnosis * Aortic valve stenosis, etiology of cardiac valve disease unspecified [I35.0] * Coronary arteriosclerosis in [place] artery [I25.10] Postoperative Diagnosis: Post-op Diagnosis * Aortic valve stenosis, etiology of cardiac valve disease unspecified [I35.0] * Coronary arteriosclerosis in [place] artery [I25.10] Procedure(s): Procedure(s) (LRB): CORONARY ARTERY [...] Implant Name Type Inv. Item Serial No. Machine Shop Repair Technician Lot No. LRB No. Used Action ON-X INTRNL Valve Coronary Aortic Mechanical On X 25mm ONXANE-25 - [id number] - [id number] ON-X INTRNL Valve Coronary Aortic Mechanical On X 25mm ONXANE-25 [id number] On-X Intrnl N/A 1 Implanted Blood/Blood Products Transfused: 1 unit platelets, 2 units FFP, 10 pack cryo, 3 units PRBC Complications: None Condition on Discharge from the operating room was stable Jaqueline Valero MD Date: 10/17/2023 Time: 12:59 PM No Resident involved on case PER * Post-Procedure Note - Zia Mahoney RN - 10/17/2023 3:38 AM TROMPER Peritoneal Dialysis Treatment Summary: Juvenal Garvin JrSharath received peritoneal dialysis on 10/16/2023 PD catheter [...] well. Effluent yellow and clear. Dressing c/d/i. PER * Plan of Care - Lucinda Mathews, FANY - 10/16/2023 9:28 PM CST NPPV- Patient is tolerating non-invasive ventilation well. Mask fits well with minimal leak. No skin break down noted. Will continue to monitor and titrate per MD order. Problem: Obstructive Sleep Apnea (BEN) Goal: Patients ability to maintain adequate ventilation during sleep periods will improve Outcome: Progressing PER * Plan of Care - Yamilet Lopez [...] Understanding discharge needs will improve Outcome: Progressing PER * Initial Assessments - Genie Benjamin RN - 10/16/2023 10:46 AM TROMPER PURNIMA Initial Assessment Interview Note Information Obtained From: Patient (10/16/23 1042) Admission Source: transferred from outside hospital for cardiac surgery Impression: multivessel CAD , Aortic stenosis Plan Includes: CABG/ AVR on 10/17/23. Likely home with home health care at discharge. Primary Source of Transportation: Does the patient need discharge transport arranged?: No (10/16/23 1042) Health Insurance Coverage: A[employer]na Medicare and IDPA Prescription Coverage: yes Pharmacy: [id number] - [place], [place] - [address] [place] [address] [place] [address] Primary Care Provider: Aditya Correa MD Prior to Admission: Functional Status: Minimal assist with ADLs Primary Caregiver: Self Support System: Children Home Care Services: No Outpatient Services: No Durable Medical Equipment: Cane (single prong) Living Arrangements: Children Type of Residence: Private residence Steps in home?: No steps inside or outside Medication management: Independent (10/13/23 0360) SDOH: Transportation: In the past 12 months, has lack of transportation kept you from medical appointments or from getting medications?: No In the past 12 months, has lack of transportation kept you from meetings, work, or from getting things needed for daily living?: No (10/16/23 104) Financial Resource: How hard is it for you to pay for the very basics like food, housing, medical care, and heating?: Not very hard (10/16/23 1044) Housing: In the last 12 months, was there a time when you were not able to pay the mortgage or rent on time?: No In the last 12 months, how many places have you lived?: 1 In the last 12 months, was there a time when you did not have a steady place to sleep or slept in ashelter (including now)?: No (10/16/23 104) Utilities: No, (10/16/23 104) Social Connections: In a typical week, how many times do you talk on the phone with family, friends, or neighbors?: More than three times a week How often do you get together with friends or relatives?: Twice a week How often do you attend advent or religion services?: 1 to 4 times per year Do you belong to any clubs or organizations such as advent groups, unions, fraternal or athletic groups, or school groups?: No How often do you attend meetings of the clubs or organizations you belong to?: Never Are you , , , , never , or living with a partner?: (10/16/23 104) Food Insecurity: Within the past 12 months, you worried that your food would run out before you got the money to buymore.: Never true Within the past 12 months, the food you bought just didn't last and you didn't have money to get more.: Never true (10/16/23 104) Alcohol Use: PHQ Screening Potential discharge needs include: Home Health: care home (10/16/23 104) Dialysis: Dialysis History Start End Type Center Comments Peritoneal [facility] Dialysis Center Information [facility] Address: [facility] [place] [address] Behavioral Health Services: Behavioral Health Services: No (10/16/231041) Patient expects to be Discharged to: Private residence, (10/16/231041) Additional Information: 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 Active with [facility] in [place], [place] under the care of Dr. Stephen. [...] Collaboration with patient, MD, direct care nurse, Emergency Communications Dispatcher, and other members of the health care team to assure needed interventions completed. 2. Return patient to optimal level of self-care post discharge. 3. Clinical Case Manager will follow for Discharge Planning - interventions as needed 4. Anticipated level of care at discharge 5. Planned Discharge Disposition Genie Benjamin RN PER * Post-Procedure Note - Jackie Masters RN [...] & intact , Effluent clear & yellow PER * Plan of Care - Juanito Barrett RRT - 10/15/2023 9:43 PM CST Nocturnal CPAP Patient is tolerating non-invasive ventilation well. Mask fits well with minimal leak. No skin break down noted. Will continue to monitor and titrate per MD order.Oxygen Therapy Patient is being managed on oxygen titration protocol. Wean FiO2 to maintain SpO2 >92%. PER * Plan of Care - Janett Schulz [...] c/o chest pain, therapeutic on heparin infusion PER * Post-Procedure Note - Zia Mahoney RN - 10/15/2023 4:44 AM TROMPER Peritoneal Dialysis Treatment Summary: Juvenal Garvin Jr. [...] well. Effluent yellow and clear. Dressing c/d/I. PER * Plan of Care - Juanito Barrett RRT - 10/14/2023 9:44 PM CST Nocturnal CPAP Patient is tolerating non-invasive ventilation well. Mask fits well with minimal leak. No skin break down noted. Will continue to monitor and titrate per MD order.Oxygen Therapy Patient is being managed on oxygen titration protocol. Wean FiO2 to maintain SpO2 >92%. PER * Plan of Care - Janett Schulz [...] pain, heparin gtt subtherapeutic, adjusted trinity MAR PER * Plan of Care - Ellie Zeng RN - 10/14/2023 1:55 AM CST Goals: Clinical Goals for the Shift: monitor vs tele labs and blood sugars, orientate to unit, promote comfort and safety, manage pain Summary: patient stable throughout shift with no complaints of pain. Blood sugars trending down, patient had RT set up CPAP for sleep. Patient NPO since 0000. PER PER documented in this encounter Plan of Treatment Pending Results Name Type Priority Associated Diagnoses Date /Time Renal function panel Lab Routine 09/22 1:06 AM TROMPER Fibrinogen Lab Routine 10/18/2023 1:5 4 AM TROMPER Protime-INR Lab Timed 10/25/2023 12 :33 AM TROMPER aPTT Lab Routine 10/26/2023 2:2 9 AM TROMPER aPTT Lab Routine 10/27/2023 2:3 0 AM TROMPER TSH Lab Routine 10/27/2023 2:3 0 AM TROMPER Scheduled Orders Name Type Priority Associated Diagnoses [...] Home Health Outpatient Referral Routine CAD in [place] artery 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[place] artery of [place] heart with stable angina pectoris ([facility] ([facility]) Aortic stenosis, severe 1 Occurrences starting 10/20/2023 until 04/21/2024 Ambulatory referral to Cardiac Rehab Outpatient Referral Routine S/P CABG x 3 NSTEMI (non-ST elevated myocardial infarction) ([facility] ([facility]) S/P AVR Expected: 11/07/2023 (Approximate), Expires: 10/23/2024 [...] PERITONEAL DIALYSIS (CCPD) Routine 10/29/2023 12:30 AM TROMPER POCT GLUCOSE DEVICE Routine 10/28/2023 8:22 PM TROMPER POCT GLUCOSE DEVICE Routine 10/28/2023 5:24 PM TROMPER POCT GLUCOSE DEVICE Routine 10/28/2023 12:45 PM TROMPER POCT GLUCOSE DEVICE Routine 10/28/2023 8:04 AM TROMPER XR CHEST 1 VIEW IP Routine 10/28/2023 6:00 AM TROMPER EGFR Routine 10/28/2023 12:34 AM TROMPER APTT Routine 10/28/2023 12:34 AM TROMPER PROTIME-INR Routine 10/28/2023 12:34 AM TROMPER CBC WITHOUT DIFFERENTIAL Routine 10/28/2023 12:34 AM TROMPER MAGNESIUM Routine 10/28/2023 12:34 AM TROMPER RENAL FUNCTION PANEL Routine 10/28/2023 12:34 AM TROMPER CONTINUOUS CYCLIC PERITONEAL DIALYSIS (CCPD) Routine 10/28/2023 12:30 AM TROMPER POCT GLUCOSE DEVICE Routine 10/27/2023 10:01 PM TROMPER POCT GLUCOSE DEVICE Routine 10/27/2023 5:48 PM TROMPER CONTINUOUS CYCLIC PERITONEAL DIALYSIS (CCPD) Routine 10/27/2023 3:23 PM TROMPER POCT GLUCOSE DEVICE Routine 10/27/2023 11:54 AM TROMPER T4, FREE Routine 10/27/2023 11:02 AM TROMPER POCT GLUCOSE DEVICE Routine 10/27/2023 8:28 AM TROMPER XR CHEST 1 VIEW IP Routine 10/27/2023 6:14 AM TROMPER OSMOLALITY, BLOOD Routine 10/27/2023 6:02 AM TROMPER EGFR Routine 10/27/2023 2:30 AM TROMPER APTT Routine 10/27/2023 2:30 AM TROMPER PROTIME-INR Routine 10/27/2023 2:30 AM TROMPER CBC WITHOUT DIFFERENTIAL Routine 10/27/2023 2:30 AM TROMPER TSH Routine 10/27/2023 2:30 AM TROMPER MAGNESIUM Routine 10/27/2023 2:30 AM TROMPER RENAL FUNCTION PANEL Routine 10/27/2023 2:30 AM TROMPER POCT GLUCOSE DEVICE Routine 10/26/2023 11:15 PM TROMPER POCT GLUCOSE DEVICE Routine 10/26/2023 4:53 PM TROMPER POCT GLUCOSE DEVICE Routine 10/26/2023 11:57 AM TROMPER PEP THERAPY Routine 10/26/2023 8:00 AM TROMPER POCT GLUCOSE DEVICE Routine 10/26/2023 8:00 AM TROMPER XR CHEST 1 VIEW IP Routine 10/26/2023 5:09 AM TROMPER EGFR Routine 10/26/2023 2:29 AM TROMPER APTT Routine 10/26/2023 2:29 AM TROMPER PROTIME-INR Routine 10/26/2023 2:29 AM TROMPER CBC WITHOUT DIFFERENTIAL Routine 10/26/2023 2:29 AM TROMPER MAGNESIUM Routine 10/26/2023 2:29 AM TROMPER RENAL FUNCTION PANEL Routine 10/26/2023 2:29 AM TROMPER APTT Timed 10/25/2023 9:15 PM TROMPER POCT GLUCOSE DEVICE Routine 10/25/2023 9:14 PM TROMPER POCT GLUCOSE DEVICE Routine 10/25/2023 4:51 PM TROMPER APTT Timed 10/25/2023 2:48 PM TROMPER POCT GLUCOSE DEVICE Routine 10/25/2023 11:15 AM TROMPER POCT GLUCOSE DEVICE Routine 10/25/2023 9:49 AM TROMPER POCT GLUCOSE DEVICE Routine 10/25/2023 7:36 AM TROMPER XR CHEST 1 VIEW IP Routine 10/25/2023 6:52 AM TROMPER APTT Routine 10/25/2023 6:48 AM TROMPER POCT GLUCOSE DEVICE Routine 10/25/2023 4:23 AM TROMPER EGFR Routine 10/25/2023 12:34 AM TROMPER CBC WITHOUT DIFFERENTIAL Routine 10/25/2023 12:34 AM TROMPER MAGNESIUM Routine 10/25/2023 12:34 AM TROMPER RENAL FUNCTION PANEL Routine 10/25/2023 12:34 AM TROMPER APTT Timed 10/25/2023 12:33 AM TROMPER PROTIME-INR Timed 10/25/2023 12:33 AM TROMPER CONTINUOUS CYCLIC PERITONEAL DIALYSIS (CCPD) Routine 10/25/2023 12:30 AM TROMPER POCT GLUCOSE DEVICE Routine 10/24/2023 9:51 PM TROMPER APTT STAT 10/24/2023 5:15 PM TROMPER POCT GLUCOSE DEVICE Routine 10/24/2023 4:42 PM TROMPER POCT GLUCOSE DEVICE Routine 10/24/2023 12:17 PM TROMPER POCT GLUCOSE DEVICE Routine 10/24/2023 7:44 AM TROMPER XR CHEST 1 VIEW IP Routine 10/24/2023 5:54 AM TROMPER EGFR Routine 10/24/2023 1:03 AM TROMPER PROTIME-INR Routine 10/24/2023 1:03 AM TROMPER CBC WITHOUT DIFFERENTIAL Routine 10/24/2023 1:03 AM TROMPER MAGNESIUM Routine 10/24/2023 1:03 AM TROMPER RENAL FUNCTION PANEL Routine 10/24/2023 1:03 AM TROMPER CONTINUOUS CYCLIC PERITONEAL DIALYSIS (CCPD) Routine 10/24/2023 12:30 AM TROMPER POCT GLUCOSE DEVICE Routine 10/23/2023 11:14 PM TROMPER POCT GLUCOSE DEVICE Routine 10/23/2023 10:43 PM TROMPER PEP THERAPY Routine 10/23/2023 6:00 PM TROMPER POCT GLUCOSE DEVICE Routine 10/23/2023 5:12 PM TROMPER PEP THERAPY Routine 10/23/2023 1:00 PM TROMPER POCT GLUCOSE DEVICE Routine 10/23/2023 12:08 PM TROMPER PEP THERAPY Routine 10/23/2023 8:00 AM TROMPER POCT GLUCOSE DEVICE Routine 10/23/2023 7:54 AM TROMPER XR CHEST 1 VIEW IP Routine 10/23/2023 6:24 AM TROMPER EGFR Routine 10/23/2023 1:53 AM TROMPER PROTIME-INR Routine 10/23/2023 1:53 AM TROMPER CBC WITHOUT DIFFERENTIAL Routine 10/23/2023 1:53 AM TROMPER MAGNESIUM Routine 10/23/2023 1:53 AM TROMPER RENAL FUNCTION PANEL Routine 10/23/2023 1:53 AM TROMPER CONTINUOUS CYCLIC PERITONEAL DIALYSIS (CCPD) Routine 10/23/2023 12:30 AM TROMPER POCT GLUCOSE DEVICE Routine 10/22/2023 11:55 PM TROMPER PEP THERAPY Routine 10/22/2023 10:00 PM TROMPER POCT GLUCOSE DEVICE Routine 10/22/2023 9:12 PM TROMPER PEP THERAPY Routine 10/22/2023 6:00 PM TROMPER POCT GLUCOSE DEVICE Routine 10/22/2023 5:22 PM TROMPER PEP THERAPY Routine 10/22/2023 3:07 PM TROMPER PEP THERAPY Routine 10/22/2023 3:07 PM TROMPER PEP THERAPY Routine 10/22/2023 3:07 PM TROMPER PEP THERAPY Routine 10/22/2023 3:07 PM TROMPER POCT GLUCOSE DEVICE Routine 10/22/2023 12:49 PM TROMPER POCT GLUCOSE DEVICE Routine 10/22/2023 8:12 AM TROMPER XR CHEST 1 VIEW IP Routine 10/22/2023 6:38 AM TROMPER EGFR Routine 10/22/2023 12:31 AM TROMPER PROTIME-INR Routine 10/22/2023 12:31 AM TROMPER CBC WITHOUT DIFFERENTIAL Routine 10/22/2023 12:31 AM TROMPER MAGNESIUM Routine 10/22/2023 12:31 AM TROMPER RENAL FUNCTION PANEL Routine 10/22/2023 12:31 AM TROMPER CONTINUOUS CYCLIC PERITONEAL DIALYSIS (CCPD) Routine 10/22/2023 12:30 AM TROMPER POCT GLUCOSE DEVICE Routine 10/21/2023 9:31 PM TROMPER POCT GLUCOSE DEVICE Routine 10/21/2023 5:16 PM TROMPER POCT GLUCOSE DEVICE Routine 10/21/2023 12:29 PM TROMPER POCT GLUCOSE DEVICE Routine 10/21/2023 8:06 AM TROMPER XR CHEST 1 VIEW IP Routine 10/21/2023 6:51 AM TROMPER ECG 12-LEAD Routine 10/21/2023 4:39 AM TROMPER EGFR Routine 10/21/2023 1:40 AM TROMPER PROTIME-INR Routine 10/21/2023 1:40 AM TROMPER CBC WITHOUT DIFFERENTIAL Routine 10/21/2023 1:40 AM TROMPER MAGNESIUM Routine 10/21/2023 1:40 AM TROMPER RENAL FUNCTION PANEL Routine 10/21/2023 1:40 AM TROMPER CONTINUOUS CYCLIC PERITONEAL DIALYSIS (CCPD) Routine 10/21/2023 12:31 AM TROMPER POCT GLUCOSE DEVICE Routine 10/20/2023 9:24 PM TROMPER POCT GLUCOSE DEVICE Routine 10/20/2023 5:24 PM TROMPER CONTINUOUS CYCLIC PERITONEAL DIALYSIS (CCPD) Routine 10/20/2023 3:51 PM TROMPER CRITICAL CARE Routine 10/20/2023 12:45 PM TROMPER 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[place] artery of [place] heart with stable angina pectoris (CMS/HCC) (HCC) POCT GLUCOSE DEVICE Routine 10/20/2023 11:47 AM TROMPER POCT GLUCOSE DEVICE Routine 10/20/2023 10:09 AM TROMPER POCT GLUCOSE DEVICE Routine 10/20/2023 9:15 AM TROMPER POCT GLUCOSE DEVICE Routine 10/20/2023 7:23 AM TROMPER XR CHEST 1 VIEW IP Routine 10/20/2023 6:37 AM TROMPER POCT GLUCOSE DEVICE Routine 10/20/2023 6:12 AM TROMPER POCT GLUCOSE DEVICE Routine 10/20/2023 3:57 AM TROMPER OXYHEMOGLOBIN, CENTRAL VENOUS Timed 10/20/2023 3:22 AM TROMPER APTT STAT 10/20/2023 3:22 AM TROMPER POCT GLUCOSE DEVICE Routine 10/20/2023 3:21 AM TROMPER POCT GLUCOSE DEVICE Routine 10/20/2023 2:10 AM TROMPER POCT GLUCOSE DEVICE Routine 10/20/2023 12:57 AM TROMPER OXYHEMOGLOBIN, CENTRAL VENOUS Routine 10/20/2023 12:21 AM TROMPER EGFR Routine 10/20/2023 12:21 AM TROMPER CALCIUM, IONIZED Routine 10/20/2023 12:21 AM TROMPER PROTIME-INR Routine 10/20/2023 12:21 AM TROMPER CBC WITHOUT DIFFERENTIAL Routine 10/20/2023 12:21 AM TROMPER MAGNESIUM Routine 10/20/2023 12:21 AM TROMPER RENAL FUNCTION PANEL Routine 10/20/2023 12:21 AM TROMPER POCT GLUCOSE DEVICE Routine 10/20/2023 12:20 AM TROMPER POCT GLUCOSE DEVICE Routine 10/19/2023 11:03 PM TROMPER POCT GLUCOSE DEVICE Routine 10/19/2023 10:01 PM TROMPER APTT STAT 10/19/2023 9:47 PM TROMPER POCT GLUCOSE DEVICE Routine 10/19/2023 9:15 PM TROMPER POCT GLUCOSE DEVICE Routine 10/19/2023 8:12 PM TROMPER POCT GLUCOSE DEVICE Routine 10/19/2023 6:13 PM TROMPER POCT GLUCOSE DEVICE Routine 10/19/2023 5:24 PM TROMPER XR CHEST 1 VIEW ED Urgent/IP Urgent 10/19/2023 4:29 PM TROMPER POCT GLUCOSE DEVICE Routine 10/19/2023 4:25 PM TROMPER ECG 12-LEAD STAT 10/19/2023 3:21 PM TROMPER XR KUB IP Routine 10/19/2023 2:49 PM TROMPER APTT STAT 10/19/2023 2:44 PM TROMPER LIPASE Routine 10/19/2023 2:44 PM TROMPER AMYLASE Routine 10/19/2023 2:44 PM TROMPER HEPATIC FUNCTION PANEL Routine 10/19/2023 2:44 PM TROMPER POCT GLUCOSE DEVICE Routine 10/19/2023 2:40 PM TROMPER POCT GLUCOSE DEVICE Routine 10/19/2023 12:25 PM TROMPER POCT GLUCOSE DEVICE Routine 10/19/2023 11:12 AM TROMPER POCT GLUCOSE DEVICE Routine 10/19/2023 10:54 AM TROMPER POCT GLUCOSE DEVICE Routine 10/19/2023 9:04 AM TROMPER OXYHEMOGLOBIN, CENTRAL VENOUS STAT 10/19/2023 8:58 AM TROMPER APTT STAT 10/19/2023 8:58 AM TROMPER POCT GLUCOSE DEVICE Routine 10/19/2023 7:19 AM TROMPER OXYHEMOGLOBIN, CENTRAL VENOUS STAT 10/19/2023 7:09 AM TROMPER LACTATE STAT 10/19/2023 7:09 AM TROMPER CRITICAL CARE Routine 10/19/2023 6:57 AM TROMPER CAD in [place] artery POCT GLUCOSE DEVICE Routine 10/19/2023 6:57 AM TROMPER XR CHEST 1 VIEW IP Routine 10/19/2023 6:27 AM TROMPER POCT GLUCOSE DEVICE Routine 10/19/2023 6:06 AM TROMPER POCT GLUCOSE DEVICE Routine 10/19/2023 5:10 AM TROMPER APTT STAT 10/19/2023 4:14 AM TROMPER POCT GLUCOSE DEVICE Routine 10/19/2023 4:03 AM TROMPER POCT GLUCOSE DEVICE Routine 10/19/2023 2:56 AM TROMPER OXYHEMOGLOBIN, CENTRAL VENOUS Routine 10/19/2023 2:11 AM TROMPER EGFR Routine 10/19/2023 2:11 AM TROMPER CALCIUM, IONIZED Routine 10/19/2023 2:11 AM TROMPER PROTIME-INR Routine 10/19/2023 2:11 AM TROMPER CBC WITHOUT DIFFERENTIAL Routine 10/19/2023 2:11 AM TROMPER MAGNESIUM Routine 10/19/2023 2:11 AM TROMPER BLOOD GAS, ARTERIAL Routine 10/19/2023 2:11 AM TROMPER RENAL FUNCTION PANEL Routine 10/19/2023 2:11 AM TROMPER POCT GLUCOSE DEVICE Routine 10/19/2023 2:07 AM TROMPER CONTINUOUS CYCLIC PERITONEAL DIALYSIS (CCPD) Routine 10/19/2023 12:31 AM TROMPER POCT GLUCOSE DEVICE Routine 10/19/2023 12:01 AM TROMPER POCT GLUCOSE DEVICE Routine 10/18/2023 11:03 PM TROMPER POCT GLUCOSE DEVICE Routine 10/18/2023 10:11 PM TROMPER APTT STAT 10/18/2023 9:21 PM TROMPER POCT GLUCOSE DEVICE Routine 10/18/2023 9:19 PM TROMPER POCT GLUCOSE DEVICE Routine 10/18/2023 8:37 PM TROMPER BLOOD GAS, ARTERIAL STAT 10/18/2023 8:34 PM TROMPER CRITICAL CARE Routine 10/18/2023 6:49 PM TROMPER CAD in [place] artery POCT GLUCOSE DEVICE Routine 10/18/2023 6:38 PM TROMPER POCT GLUCOSE DEVICE Routine 10/18/2023 5:45 PM TROMPER XR KUB IP Routine 10/18/2023 5:42 PM TROMPER POCT GLUCOSE DEVICE Routine 10/18/2023 4:47 PM TROMPER APTT Timed 10/18/2023 2:55 PM TROMPER POCT GLUCOSE DEVICE Routine 10/18/2023 2:52 PM TROMPER POCT GLUCOSE DEVICE Routine 10/18/2023 1:53 PM TROMPER POCT GLUCOSE DEVICE Routine 10/18/2023 12:48 PM TROMPER POCT GLUCOSE DEVICE Routine 10/18/2023 12:00 PM TROMPER POCT GLUCOSE DEVICE Routine 10/18/2023 10:57 AM TROMPER POCT GLUCOSE DEVICE Routine 10/18/2023 9:52 AM TROMPER POCT GLUCOSE DEVICE Routine 10/18/2023 8:46 AM TROMPER POCT GLUCOSE DEVICE Routine 10/18/2023 7:58 AM TROMPER CRITICAL CARE Routine 10/18/2023 7:27 AM TROMPER CAD in [place] artery POCT GLUCOSE DEVICE Routine 10/18/2023 7:02 AM TROMPER POCT GLUCOSE DEVICE Routine 10/18/2023 6:04 AM TROMPER XR CHEST 1 VIEW IP Routine 10/18/2023 5:38 AM TROMPER POCT GLUCOSE DEVICE Routine 10/18/2023 5:04 AM TROMPER POCT GLUCOSE DEVICE Routine 10/18/2023 4:03 AM TROMPER POCT GLUCOSE DEVICE Routine 10/18/2023 3:04 AM TROMPER POCT GLUCOSE DEVICE Routine 10/18/2023 1:57 AM TROMPER EGFR Routine 10/18/2023 1:54 AM TROMPER CALCIUM, IONIZED Routine 10/18/2023 1:54 AM TROMPER PROTIME-INR Routine 10/18/2023 1:54 AM TROMPER FIBRINOGEN Routine 10/18/2023 1:54 AM TROMPER CBC WITHOUT DIFFERENTIAL Routine 10/18/2023 1:54 AM TROMPER MAGNESIUM Routine 10/18/2023 1:54 AM TROMPER BLOOD GAS, ARTERIAL STAT 10/18/2023 1:54 AM TROMPER RENAL FUNCTION PANEL Routine 10/18/2023 1:54 AM TROMPER POCT GLUCOSE DEVICE Routine 10/18/2023 12:57 AM TROMPER CONTINUOUS CYCLIC PERITONEAL DIALYSIS (CCPD) Routine 10/18/2023 12:31 AM TROM[facility] POCT GLUCOSE DEVICE Routine 10/18/2023 12:04 AM [facility] POCT GLUCOSE DEVICE Routine 10/17/2023 11:00 PM [facility] BLOOD GAS, ARTERIAL STAT 10/17/2023 10:56 PM [facility]OM[facility] LACTATE STAT 10/17/2023 10:55 PM [facility]OM[facility] DIFFERENTIAL AUTO STAT 10/17/2023 10:55 PM [facility] CALCIUM, IONIZED STAT 10/17/2023 10:55 PM TROMPER CBC WITH AUTO DIFFERENTIAL STAT 10/17/2023 10:55 PM [facility]OM[facility] POCT GLUCOSE DEVICE Routine 10/17/2023 10:19 PM TROM[facility] POCT GLUCOSE DEVICE Routine 10/17/2023 9:00 PM [facility] POCT GLUCOSE DEVICE Routine 10/17/2023 8:07 PM [facility] POCT GLUCOSE DEVICE Routine 10/17/2023 7:18 PM [facility] TRANSFUSE RED BLOOD CELLS Timed 10/17/2023 7:13 PM [facility] CRITICAL CARE Routine 10/17/2023 6:42 PM TROM[facility] CAD in [place] artery PREPARE RBC STAT 10/17/2023 6:34 PM [facility] POTASSIUM LEVEL STAT 10/17/2023 6:14 PM TROM[facility] APTT STAT 10/17/2023 6:12 PM [facility] PROTIME-INR STAT 10/17/2023 6:12 PM [facility] FIBRINOGEN STAT 10/17/2023 6:12 PM TROMPER CBC WITHOUT DIFFERENTIAL STAT 10/17/2023 6:12 PM [facility] BLOOD GAS, ARTERIAL STAT 10/17/2023 6:12 PM [facility] POCT GLUCOSE DEVICE Routine 10/17/2023 6:11 PM [facility] TRANSFUSE PLASMA Timed 10/17/2023 5:25 PM [facility] PREPARE PLASMA STAT 10/17/2023 5:09 PM [facility]OM[facility] POCT GLUCOSE DEVICE Routine 10/17/2023 4:50 PM [facility] APTT STAT 10/17/2023 4:32 PM [facility] PROTIME-INR STAT 10/17/2023 4:32 PM [facility] FIBRINOGEN STAT 10/17/2023 4:32 PM [facility]OM[facility] CBC WITHOUT DIFFERENTIAL Routine 10/17/2023 4:32 PM [facility] BLOOD GAS, ARTERIAL STAT 10/17/2023 4:32 PM [facility]OM[facility] POCT GLUCOSE DEVICE Routine 10/17/2023 3:51 PM [facility] TRANSFUSE PLASMA Timed 10/17/2023 3:43 PM [facility] TRANSFUSE RED BLOOD CELLS Timed 10/17/2023 3:38 PM [facility] PREPARE PLASMA STAT 10/17/2023 3:32 PM [facility] PREPARE RBC STAT 10/17/2023 3:32 PM [facility] POCT GLUCOSE DEVICE Routine 10/17/2023 2:34 PM [facility] XR CHEST 1 VIEW ED Urgent/IP Urgent 10/17/2023 1:49 PM [facility] CRITICAL CARE Routine 10/17/2023 1:44 PM [facility] LACTATE STAT 10/17/2023 1:27 PM [facility] EGFR STAT 10/17/2023 1:27 PM [facility] CALCIUM, IONIZED STAT 10/17/2023 1:27 PM [facility] APTT STAT 10/17/2023 1:27 PM [facility] PROTIME-INR STAT 10/17/2023 1:27 PM [facility] FIBRINOGEN STAT 10/17/2023 1:27 PM TR[facility] CBC WITHOUT DIFFERENTIAL STAT 10/17/2023 1:27 PM [facility] PHOSPHORUS STAT 10/17/2023 1:27 PM [facility] MAGNESIUM STAT 10/17/2023 1:27 PM [facility] BLOOD GAS, ARTERIAL STAT 10/17/2023 1:27 PM [facility] BASIC METABOLIC PANEL STAT 10/17/2023 1:27 PM [facility]OM[facility] POCT GLUCOSE DEVICE Routine 10/17/2023 1:25 PM TROMPER POCT ACTIVATED CLOTTING TIME, HIGH RANGE Routine 10/17/2023 12:26 PM [facility] POC BLOOD GAS AND CHEMISTRIES, ARTERIAL Routine 10/17/2023 12:26 PM [facility] TRANSFUSE PLATELETS Timed 10/17/2023 12:24 PM [facility] PREPARE RBC STAT 10/17/2023 12:11 PM [facility] TRANSFUSE RED BLOOD CELLS Timed 10/17/2023 12:09 PM [facility] TRANSFUSE CRYOPRECIPITATE (POOLED UNITS) Timed 10/17/2023 12:05 PM [facility] TRANSFUSE CRYOPRECIPITATE (POOLED UNITS) Timed 10/17/2023 12:04 PM [facility] TRANSFUSE PLASMA Timed 10/17/2023 12:03 PM [facility] TRANSFUSE PLASMA Timed 10/17/2023 12:03 PM [facility] POC BLOOD GAS AND CHEMISTRIES, ARTERIAL Routine 10/17/2023 11:51 AM TROM[facility] POCT ACTIVATED CLOTTING TIME, HIGH RANGE Routine 10/17/2023 11:50 AM [facility] POCT ACTIVATED CLOTTING TIME, HIGH RANGE Routine 10/17/2023 11:22 AM [facility] POC BLOOD GAS AND CHEMISTRIES, ARTERIAL Routine 10/17/2023 11:20 AM [facility] POCT ACTIVATED CLOTTING TIME, HIGH RANGE Routine 10/17/2023 11:05 AM [facility] POCT ACTIVATED CLOTTING TIME, HIGH RANGE Routine 10/17/2023 10:53 AM [facility] POCT ACTIVATED CLOTTING TIME, HIGH RANGE Routine 10/17/2023 10:38 AM [facility] POC BLOOD GAS AND CHEMISTRIES, ARTERIAL Routine 10/17/2023 10:38 AM [facility] POCT ACTIVATED CLOTTING TIME, HIGH RANGE Routine 10/17/2023 10:24 AM [facility] POC BLOOD GAS AND CHEMISTRIES, VENOUS Routine 10/17/2023 10:21 AM TR[facility] POCT ACTIVATED CLOTTING TIME, HIGH RANGE Routine 10/17/2023 10:12 AM [facility] POC BLOOD GAS AND CHEMISTRIES, ARTERIAL Routine 10/17/2023 10:11 AM [facility] POC BLOOD GAS AND CHEMISTRIES, ARTERIAL Routine 10/17/2023 9:47 AM TROM[facility] POCT ACTIVATED CLOTTING TIME, HIGH RANGE Routine 10/17/2023 9:44 AM [facility] PREPARE PLATELETS STAT 10/17/2023 9:12 AM [facility] PREPARE PLASMA STAT 10/17/2023 9:12 AM [facility] PREPARE CRYOPRECIPITATE (POOLED UNITS) STAT 10/17/2023 9:12 AM [facility] POCT ACTIVATED CLOTTING TIME, HIGH RANGE Routine 10/17/2023 8:19 AM [facility] REPLACEMENT AORTIC VALVE 10/17/2023 8:03 AM TR[facility] Aortic valve stenosis, etiology of cardiac valve disease unspecified Coronary arteriosclerosis in [place] artery CORONARY ARTERY BYPASS GRAFT 10/17/2023 8:03 AM TR[facility] Aortic valve stenosis, etiology of cardiac valve disease unspecified Coronary arteriosclerosis in [place] artery POCT GLUCOSE DEVICE Routine 10/17/2023 7:47 AM [facility] POCT GLUCOSE DEVICE Routine 10/17/2023 5:50 AM TROM[facility] US CAROTIDS DUPLEX BILATERAL IP Routine 10/17/2023 5:10 AM [facility] POCT GLUCOSE DEVICE Routine 10/17/2023 2:29 AM [facility] POCT GLUCOSE DEVICE Routine 10/17/2023 12:51 AM [facility] CONTINUOUS CYCLIC PERITONEAL DIALYSIS (CCPD) Routine 10/17/2023 12:31 AM [facility] DIFFERENTIAL AUTO Routine 10/17/2023 12:29 AM [facility] CBC WITH AUTO DIFFERENTIAL Routine 10/17/2023 12:29 AM [facility] APTT Routine 10/17/2023 12:29 AM [facility] TYPE AND SCREEN STAT 10/16/2023 7:51 PM [facility] POCT GLUCOSE DEVICE Routine 10/16/2023 7:49 PM [facility] POCT GLUCOSE DEVICE Routine 10/16/2023 5:35 PM [facility] TRANSTHORACIC ECHO (TTE) COMPLETE W DOPPLER/CF W CONTRAST Routine 10/16/2023 4:47 PM [facility] APTT Routine 10/16/2023 3:50 PM [facility] LIPID PANEL Routine 10/16/2023 3:44 PM [facility] CONTINUOUS CYCLIC PERITONEAL DIALYSIS (CCPD) Routine 10/16/2023 3:33 PM [facility] HEMOGLOBIN A1C Routine 10/16/2023 3:27 PM [facility] XR CHEST PA LATERAL 2 VIEWS ED Urgent/IP Urgent 10/16/2023 3:12 PM [facility] ECG 12-LEAD Routine 10/16/2023 2:17 PM [facility] PREPARE RBC STAT 10/16/2023 2:04 PM [facility] POCT GLUCOSE DEVICE Routine 10/16/2023 12:22 PM [facility] POCT GLUCOSE DEVICE Routine 10/16/2023 8:11 AM [facility] POCT GLUCOSE DEVICE Routine 10/16/2023 4:48 AM [facility] POCT GLUCOSE DEVICE Routine 10/16/2023 12:37 AM [facility] DIFFERENTIAL AUTO Routine 10/16/2023 12:31 AM [facility] CBC WITH AUTO DIFFERENTIAL Routine 10/16/2023 12:31 AM [facility] APTT Routine 10/16/2023 12:31 AM [facility] B CHECK SAMPLE STAT 10/16/2023 12:27 AM [facility] POCT GLUCOSE DEVICE Routine 10/15/2023 11:20 PM [facility] POCT GLUCOSE DEVICE Routine 10/15/2023 11:01 PM [facility] POCT GLUCOSE DEVICE Routine 10/15/2023 10:45 PM [facility] POCT GLUCOSE DEVICE Routine 10/15/2023 10:26 PM [facility] POCT GLUCOSE DEVICE Routine 10/15/2023 8:12 PM [facility] POCT GLUCOSE DEVICE Routine 10/15/2023 5:10 PM [facility] POCT GLUCOSE DEVICE Routine 10/15/2023 12:13 PM [facility] APTT Routine 10/15/2023 11:[address] CHEST WO CONTRAST IP Routine 10/15/2023 11:00 AM [facility] POCT GLUCOSE DEVICE Routine 10/15/2023 7:56 AM [facility] POCT GLUCOSE DEVICE Routine 10/15/2023 5:34 AM [facility] POCT GLUCOSE DEVICE Routine 10/15/2023 4:35 AM [facility] APTT STAT 10/15/2023 4:27 AM [facility] POCT GLUCOSE DEVICE Routine 10/15/2023 1:30 AM [facility] EGFR Routine 10/15/2023 1:06 AM [facility] DIFFERENTIAL AUTO Routine 10/15/2023 1:06 AM [facility] IRON PROFILE W/ IBC Routine 10/15/2023 1:06 AM [facility] CBC WITH AUTO DIFFERENTIAL Routine 10/15/2023 1:06 AM [facility] APTT Routine 10/15/2023 1:06 AM [facility] FERRITIN Routine 10/15/2023 1:06 AM [facility] RENAL FUNCTION PANEL Routine 10/15/2023 1:06 AM [facility] CONTINUOUS CYCLIC PERITONEAL DIALYSIS (CCPD) Routine 10/15/2023 12:31 AM [facility] APTT Timed 10/14/2023 8:41 PM [facility] POCT GLUCOSE DEVICE Routine 10/14/2023 8:24 PM [facility] POCT GLUCOSE DEVICE Routine 10/14/2023 5:28 PM [facility] CONTINUOUS CYCLIC PERITONEAL DIALYSIS (CCPD) Routine 10/14/2023 3:44 PM [facility] APTT Timed 10/14/2023 2:39 PM [facility] POCT GLUCOSE DEVICE Routine 10/14/2023 12:15 PM [facility] POCT GLUCOSE DEVICE Routine 10/14/2023 11:06 AM [facility] POCT GLUCOSE DEVICE Routine 10/14/2023 8:34 AM [facility] POCT GLUCOSE DEVICE Routine 10/14/2023 5:56 AM [facility] EGFR STAT 10/14/2023 5:53 AM [facility] APTT STAT 10/14/2023 5:53 AM [facility] BASIC METABOLIC PANEL STAT 10/14/2023 5:53 AM [facility] POCT GLUCOSE DEVICE Routine 10/14/2023 3:58 AM TR[facility] POCT GLUCOSE DEVICE Routine 10/14/2023 3:04 AM TR[facility] POCT GLUCOSE DEVICE Routine 10/14/2023 2:05 AM TR[facility] EGFR STAT 10/14/2023 1:04 AM [facility] DIFFERENTIAL AUTO STAT 10/14/2023 1:04 AM TROM[facility] CBC WITH AUTO DIFFERENTIAL STAT 10/14/2023 1:04 AM [facility] APTT STAT 10/14/2023 1:04 AM [facility] PROTIME-INR STAT 10/14/2023 1:04 AM [facility] COMPREHENSIVE METABOLIC PANEL STAT 10/14/2023 1:04 AM TROM[facility] POCT GLUCOSE DEVICE Routine 10/13/2023 11:25 PM TROMPER documented in this encounter Results * (ABNORMAL) [...] ORDERABLES - APRIL CE Final Result [facility] [address] Department [place] [address] * (ABNORMAL) Protime-INR (11/03/2023 11:43 AM CDT) PT 21.9(H) 10.3 - 13.7 sec INR 1.92(H) 0.90 - 1.20 [facility] Comment: Interpretive data Oral anticoagulant therapeutic ranges: Venous thromboembolism prophylaxis or treatment: 2.0-3.0 CARDIOLOGY Standard range: 2.0-3.0 High-intensity range: 2.5-3.5 Refer to indication-specific guidelines for appropriate target ranges for prosthetic heart valve replacement. Current interpretive data was last revised on 2019. Blood 11/03/2023 11:4 3 AM CDT 11/03/2023 12:58 PM CDT Guerline GRACE LAB BLOOD ORDERABLES Final R esult Performing Organization Address [facility] Co de Phone Number [facility] [address] Department [place] [place] [address] * (ABNORMAL) aPTT (11/03/2023 11:43 AM CDT) [...] BLOOD ORDERABLES Final Result Performing Organization Address [facility] Co de Phone Number [facility] [address] [place] [place] [address] * (ABNORMAL) POCT glucose (11/03/2023 11:38 AM [...] APRIL CE Final Result Performing Organization Address [facility] Co de Phone Number [facility] [address] [place] [place] [address] * (ABNORMAL) POCT glucose (11/03/2023 8:05 AM CDT) Glucose, POC 235(H) 70 - 140 mg/dL Comment: For Glucose values <35 mg/dl when Hematocrit is >60 mg/dl,the test may not accurately detect significant hypoglycemia,and testing in the Laboratory should be considered if clinically indicated. Blood 11/03/2023 8:05 AM CDT 11/03/2023 8:05 AM CDT us Jaqueline Valero MD LAB POCT ORDERABLES - APRIL CE Final Result [facility] [address] Department [place] [address] * eGFR (11/03/2023 4:41 AM CDT) Pathologist [facility] eGFR 7 mL/min/1. 73 m2 Comment: Interpretive [...] CDT 11/03/2023 4:41 AM CDT Byron Olvera RESPIRATORY CARE TECHNICIAN LAB BLOOD ORDERABLES Fi nal Result Performing Organization Address [facility] Co de Phone Number [facility] [address] [facility] [employer] [place], [place] [phone] * (ABNORMAL) aPTT (11/03/2023 4:41 AM CDT) [...] BLOOD ORDERABLES Final Result Performing Organization Address [facility] Co de Phone Number [facility] [address] [facility] [place] [place] [address] * (ABNORMAL) Protime-INR (11/03/2023 4:41 AM CDT) PT 19.8(H) 10.3 - 13.7 sec INR 1.74(H) 0.90 - 1.20 [facility] Comment: Interpretive data Oral anticoagulant [...] ORDERABLES Fi nal Result Performing Organization Address City/[facility]/ZIP Co de Phone Number [facility] [address] Department [place] [place] [address] * Magnesium (11/03/2023 4:41 AM CDT) [facility] Magnesium 2.4 1.4 - 2.5 mg/dL Blood 11/03/2023 4:41 AM CDT 11/03/2023 4:41 AM CDT Byron Rudi Wade MEJIA LAB BLOOD ORDERABLES Fi nal Result Performing Organization Address [facility] Co de Phone Number [facility] [address] [place] [place] [address] * (ABNORMAL) Renal function panel (11/03/2023 4:41 AM CDT) [facility] Sodium 132(L) 135 - 145 mmol/L Potassium, pl 3.7 3.3 - 4.9 mmol/L [facility] Chloride 92(L) 97 - 110 mmol/L [facility] CO2 27 22 - 32 mmol/L [facility] Anion gap 13 2 - 15 mmol/L [facility] BUN 79(H) 6 - 25 mg/dL [facility] Creatinine 8.23(H) 0.80 - 1.30 mg/dL [facility] Glucose 252(H) 70 - 199 mg/dL [facility] Comment: Interpretive Data Fasting glucose [...] 2022. Calcium 8.9 8.5 - 10.3 mg/dL [facility] Phosphorus, pl 4.2 2.3 - 4.5 mg/dL [facility] Albumin 2.9(L) 3.5 - 5.0 g/dL [facility] Blood 11/03/2023 4:41 AM CDT 11/03/2023 4:41 AM CDT Byron Olvera RESPIRATORY CARE TECHNICIAN LAB BLOOD ORDERABLES Fi nal Result Performing Organization Address [facility] Co de Phone Number [facility] [address] [employer] [place], [place] [phone] * (ABNORMAL) CBC without differential (11/03/2023 4:41 AM CDT) [facility] WBC 4.8 3.8 - 9.9 K/cumm Hgb 7.6(L) 13.0 - 17.5 g/dL [facility] Hct 24.4(L) 38.9 - 50.3 % [facility] Plt 389 150 - 400 K/cumm [facility] MPV 9.2 9.1 - 12.3 fL [facility] RBC 2.61(L) 4.30 - 5.80 M/cumm [facility] MCV 93.5 81.3 - 96.4 fL [facility] MCH 29.1 27.1 - 33.3 pg [facility] MCHC 31.1(L) 32.3 - 35.7 g/dL [facility] RDW CV 14.6 11.1 - 14.9 % [facility] RDW SD 50.1(H) 35.7 - 48.1 fL [facility] NRBC abs 0.00 0.00 - 0.01 K/cumm [facility] Blood 11/03/2023 4:41 AM CDT 11/03/2023 4:41 AM CDT Byron Olvera NP LAB BLOOD ORDERABLES Fi nal Result Performing Organization Address City/[facility]/ZIP Co de Phone Number [facility] [address] Department [facility] [place], [place] [id number] * aPTT (11/02/2023 8:38 PM CDT) aPTT 38 28 - 38 sec Comment: Interpretive Data Heparin therapeutic range: 66.0 - 100.0 seconds. Range based on correlation with therapeutic heparin activity range of 0.3 - 0.7 Units/mL. Current interpretive data was last revised on 2023. Blood 11/02/2023 8:38 PM CDT 11/02/2023 8:38 PM CDT Nona GRACE LAB BLOOD ORDERABLES Fin al Result Performing Organization Address [facility] Co de Phone Number [facility] [address] [facility] [place], [place] [phone] * (ABNORMAL) POCT glucose (11/02/2023 8:22 PM CDT) Pathologist [facility] Glucose, POC 170(H) 70 - 140 mg/dL Comment: For Glucose values <35 mg/dl when Hematocrit is >60 mg/dl,the test may not accurately detect significant hypoglycemia,and testing in the Laboratory should be considered if clinically indicated. Blood 11/02/2023 8:22 PM CDT 11/02/2023 8:22 PM CDT Jaqueline Valero MD LAB POCT ORDERABLES - APRIL CE Final Result Performing Organization Address [facility] Co de Phone Number [facility] [address] [place] [address] * (ABNORMAL) POCT glucose (11/02/2023 5:22 PM [...] APRIL CE Final Result Performing Organization Address City/[facility] Co de Phone Number [facility] [address] Department [place] [place] [address] * aPTT (11/02/2023 1:17 PM CDT) aPTT 36 28 - 38 sec Comment: Interpretive Data Heparin therapeutic range: 66.0 - 100.0 seconds. Range based on correlation with therapeutic heparin activity range of 0.3 - 0.7 Units/mL. Current interpretive data was last revised on 2023. Blood 11/02/2023 1:17 PM CDT 11/02/2023 1:33 PM CDT Narrative [facility] - 11/02/2023 1:50 PM CDT Baseline prior to heparin initiation Nona GRACE LAB BLOOD ORDERABLES Fin al Result Performing Organization Address [facility] Co de Phone Number [facility] [address] Department [employer] [place], [place] [phone] * (ABNORMAL) POCT glucose (11/02/2023 12:27 PM CDT) Glucose, POC 178(H) 70 - 140 mg/dL Comment: For Glucose values <35 mg/dl when Hematocrit is >60 mg/dl,the test may not accurately detect significant hypoglycemia,and testing in the Laboratory should be considered if clinically indicated. Blood 11/02/2023 12:2 7 PM CDT 11/02/2023 12:27 PM CDT Jaqueline Valero MD LAB POCT ORDERABLES - APRIL CE Final Result Performing Organization Address City/[facility] Co de Phone Number [facility] [address] Department [employer] [place], [place] [phone] * (ABNORMAL) POCT glucose (11/02/2023 8:15 AM CDT) Glucose, POC 336(H) 70 - 140 mg/dL Comment: For Glucose values <35 mg/dl when Hematocrit is >60 mg/dl,the test may not accurately detect significant hypoglycemia,and testing in the Laboratory should be considered if clinically indicated. Blood 11/02/2023 8:15 AM CDT 11/02/2023 8:15 AM CDT us Jaqueline Valero MD LAB POCT ORDERABLES - APRIL CE Final Result [facility] [address] Department [place] [address] * eGFR (11/02/2023 2:16 AM CDT) Pathologist [facility] eGFR 7 mL/min/1. 73 m2 Comment: Interpretive [...] CDT 11/02/2023 2:37 AM CDT Byron Olvera RESPIRATORY CARE TECHNICIAN LAB BLOOD ORDERABLES Fi nal Result Performing Organization Address [facility] Co de Phone Number [facility] [address] [facility] [employer] [place] [address] * (ABNORMAL) Protime-INR (11/02/2023 2:16 AM CDT) PT 19.1(H) 10.3 - 13.7 sec INR 1.68(H) 0.90 - 1.20 [facility] Comment: Interpretive data Oral anticoagulant therapeutic ranges: Venous thromboembolism prophylaxis or treatment: 2.0-3.0 CARDIOLOGY Standard range: 2.0-3.0 High-intensity range: 2.5-3.5 Refer to indication-specific guidelines for appropriate target ranges for prosthetic heart valve replacement. Current interpretive data was last revised on 2019. Blood 11/02/2023 2:16 AM CDT 11/02/2023 2:37 AM CDT Byron Olvera RESPIRATORY CARE TECHNICIAN LAB BLOOD ORDERABLES Fi nal Result Performing Organization Address [facility] Co de Phone Number [facility] [address] [facility] [employer] [place] [address] * Magnesium (11/02/2023 2:16 AM CDT) Magnesium 2.4 1.4 - 2.5 mg/dL Blood 11/02/2023 2:16 AM CDT 11/02/2023 2:37 AM CDT Byron Olvera RESPIRATORY CARE TECHNICIAN LAB BLOOD ORDERABLES Fi nal Result Performing Organization Address City/[facility] Co de Phone Number [facility] [address] [facility] [employer] [place] [address] * (ABNORMAL) Renal function panel (11/02/2023 2:16 AM CDT) Sodium 128(L) 135 - 145 mmol/L Potassium, pl 3.9 3.3 - 4.9 mmol/L [facility] Chloride 89(L) 97 - 110 mmol/L [facility] CO2 25 22 - 32 mmol/L [facility] Anion gap 14 2 - 15 mmol/L [facility] BUN 86(H) 6 - 25 mg/dL [facility] Creatinine 8.74(H) 0.80 - 1.30 mg/dL [facility] Glucose 353(H) 70 - 199 mg/dL [facility] Comment: Interpretive Data Fasting glucose [...] 2022. Calcium 9.3 8.5 - 10.3 mg/dL [facility] Phosphorus, pl 3.7 2.3 - 4.5 mg/dL [facility] Albumin 2.7(L) 3.5 - 5.0 g/dL [facility] Blood 11/02/2023 2:16 AM CDT 11/02/2023 2:37 AM CDT us Byron Olvera NP LAB BLOOD ORDERABLES Fi nal Result [facility] [address] Department [place] [address] * (ABNORMAL) CBC without differential (11/02/2023 2:16 AM CDT) [facility] WBC 5.0 3.8 - 9.9 K/cumm Hgb 7.5(L) 13.0 - 17.5 g/dL [facility] Hct 24.5(L) 38.9 - 50.3 % [facility] Plt 391 150 - 400 K/cumm [facility] MPV 9.3 9.1 - 12.3 fL [facility] RBC 2.60(L) 4.30 - 5.80 M/cumm [facility] MCV 94.2 81.3 - 96.4 fL [facility] MCH 28.8 27.1 - 33.3 pg [facility] MCHC 30.6(L) 32.3 - 35.7 g/dL [facility] RDW CV 14.6 11.1 - 14.9 % [facility] RDW SD 50.4(H) 35.7 - 48.1 fL [facility] NRBC abs 0.00 0.00 - 0.01 K/cumm [facility] Blood 11/02/2023 2:16 AM CDT 11/02/2023 2:37 AM CDT us Byron Olvera NP LAB BLOOD ORDERABLES Fi nal Result Performing Organization Address City/[facility]/ZIP Co de Phone Number [facility] [address] [employer] [place] [address] * (ABNORMAL) POCT glucose (11/02/2023 2:06 AM CDT) [facility] Glucose, POC 350(H) 70 - 140 mg/dL Comment: For Glucose values <35 mg/dl when Hematocrit is >60 mg/dl,the test may not accurately detect significant hypoglycemia,and testing in the Laboratory should be considered if clinically indicated. Blood 11/02/2023 2:06 AM CDT 11/02/2023 2:06 AM CDT Jaqueline Valero MD LAB POCT ORDERABLES - APRIL CE Final Result Performing Organization Address City/[facility]/ZIP Co de Phone Number [facility] [address] [place] [address] * (ABNORMAL) POCT glucose (11/01/2023 8:25 PM [...] APRIL CE Final Result Performing Organization Address [facility] de Phone Number [facility] [address] [facility] [employer] [place], [place] [id number] * (ABNORMAL) POCT glucose (11/01/2023 5:17 PM [...] APRIL CE Final Result Performing Organization Address [facility] de Phone Number [facility] [address] [facility] [place] [place] [address] * (ABNORMAL) POCT glucose (11/01/2023 12:01 PM [...] APRIL CE Final Result Performing Organization Address [facility] de Phone Number [facility] [address] [facility] [employer] [place], [place] [id number] * (ABNORMAL) POCT glucose (11/01/2023 8:27 AM CDT) Pathologist [facility] Glucose, POC 246(H) 70 - 140 mg/dL Comment: For Glucose values <35 mg/dl when Hematocrit is >60 mg/dl,the test may not accurately detect significant hypoglycemia,and testing in the Laboratory should be considered if clinically indicated. Blood 11/01/2023 8:27 AM CDT 11/01/2023 8:27 AM CDT Jaqueline Valero MD LAB POCT ORDERABLES - APRIL CE Final Result Performing Organization Address [facility] de Phone Number [facility] [address] [place] [address] * eGFR (11/01/2023 2:09 AM CDT) Pathologist [facility] eGFR 6 mL/min/1. 73 m2 [...] ORDERABLES Fi nal Result Performing Organization Address City/[facility]/ZIP Co de Phone Number [facility] [address] [employer] [place] [address] * (ABNORMAL) Protime-INR (11/01/2023 2:09 AM CDT) PT 20.6(H) 10.3 - 13.7 sec INR 1.81(H) 0.90 - 1.20 [facility] Comment: Interpretive data Oral anticoagulant therapeutic ranges: Venous thromboembolism prophylaxis or treatment: 2.0-3.0 CARDIOLOGY Standard range: 2.0-3.0 High-intensity range: 2.5-3.5 Refer to indication-specific guidelines for appropriate target ranges for prosthetic heart valve replacement. Current interpretive data was last revised on 2019. Blood 11/01/2023 2:09 AM CDT 11/01/2023 2:21 AM CDT Byron Olvera NP LAB BLOOD ORDERABLES Fi nal Result Performing Organization Address City/[facility]/ZIP Co de Phone Number [facility] [address] [employer] [place] [address] * Magnesium (11/01/2023 2:09 AM CDT) Magnesium 2.5 1.4 - 2.5 mg/dL Blood 11/01/2023 2:09 AM CDT 11/01/2023 2:21 AM CDT Byron Olvera NP LAB BLOOD ORDERABLES Fi nal Result [facility] [address] Department [place] [address] * (ABNORMAL) Renal function panel (11/01/2023 2:09 AM CDT) Sodium 131(L) 135 - 145 mmol/L Potassium, pl 4.0 3.3 - 4.9 mmol/L [facility] Chloride 91(L) 97 - 110 mmol/L [facility] CO2 25 22 - 32 mmol/L [facility] Anion gap 15 2 - 15 mmol/L [facility] BUN 89(H) 6 - 25 mg/dL [facility] Creatinine 8.97(H) 0.80 - 1.30 mg/dL [facility] Glucose 302(H) 70 - 199 mg/dL [facility] Comment: Interpretive Data Fasting glucose [...] 2022. Calcium 9.1 8.5 - 10.3 mg/dL [facility] Phosphorus, pl 4.1 2.3 - 4.5 mg/dL [facility] Albumin 2.9(L) 3.5 - 5.0 g/dL [facility] Blood 11/01/2023 2:09 AM CDT 11/01/2023 2:21 AM CDT Byron Olvera NP LAB BLOOD ORDERABLES Fi nal Result [facility] [address] Department [place] [address] * (ABNORMAL) CBC without differential (11/01/2023 2:09 AM CDT) [facility] WBC 5.9 3.8 - 9.9 K/cumm Hgb 7.7(L) 13.0 - 17.5 g/dL [facility] Hct 25.0(L) 38.9 - 50.3 % [facility] Plt 381 150 - 400 K/cumm [facility] MPV 9.2 9.1 - 12.3 fL [facility] RBC 2.65(L) 4.30 - 5.80 M/cumm [facility] MCV 94.3 81.3 - 96.4 fL [facility] MCH 29.1 27.1 - 33.3 pg [facility] MCHC 30.8(L) 32.3 - 35.7 g/dL [facility] RDW CV 14.8 11.1 - 14.9 % [facility] RDW SD 50.6(H) 35.7 - 48.1 fL [facility] NRBC abs 0.00 0.00 - 0.01 K/cumm [facility] Blood 11/01/2023 2:09 AM CDT 11/01/2023 2:21 AM CDT us Byron Olvera RESPIRATORY CARE TECHNICIAN LAB BLOOD ORDERABLES nal Result [facility] [address] Department [place] [address] * Vancomycin level random (11/01/2023 2:09 AM CDT) [facility] Vancomycin random 17.3 mcg/mL Comment: Interpretive Data No reference ranges have been established for random drug levels. Current Interpretive Data was last revised on 2020. Blood 11/01/2023 2:09 AM CDT 11/01/2023 2:21 AM CDT us Guerline Rodriguez PA LAB BLOOD ORDERABLES Final R esult Performing Organization Address [facility] Co de Phone Number [facility] [address] [facility] [employer] [place], [place] [phone] * (ABNORMAL) POCT glucose (11/01/2023 2:05 AM [...] APRIL CE Final Result Performing Organization Address [facility] Co de Phone Number [facility] [address] [facility] [place] [place] [address] * (ABNORMAL) POCT glucose (10/31/2023 9:21 PM [...] APRIL CE Final Result Performing Organization Address [facility] Co de Phone Number [facility] [address] [facility] [employer] [place], [place] [phone] * (ABNORMAL) POCT glucose (10/31/2023 5:12 PM [...] APRIL CE Final Result Performing Organization Address [facility] Co de Phone Number [facility] [address] [facility] [place] [place] [address] * (ABNORMAL) POCT glucose (10/31/2023 12:02 PM [...] APRIL CE Final Result Performing Organization Address [facility] de Phone Number [facility] [address] [facility] [place] [place] [address] * (ABNORMAL) POCT glucose (10/31/2023 12:01 PM [...] APRIL CE Final Result Performing Organization Address [facility] Co de Phone Number [facility] [address] Department [place] [address] * (ABNORMAL) POCT glucose (10/31/2023 8:06 AM CDT) [facility] Glucose, POC 338(H) 70 - 140 mg/dL Comment: For Glucose values <35 mg/dl when Hematocrit is >60 mg/dl,the test may not accurately detect significant hypoglycemia,and testing in the Laboratory should be considered if clinically indicated. Blood 10/31/2023 8:06 AM CDT 10/31/2023 8:06 AM CDT us Jaqueline Valero MD LAB POCT ORDERABLES - APRIL CE Final Result [facility] [address] Department [place] [address] * eGFR (10/31/2023 2:25 AM CDT) [facility] eGFR 6 mL/min/1. 73 m2 Comment: Interpretive [...] ORDERABLES Fi nal Result Performing Organization Address City/[facility] Co de Phone Number [facility] [address] [facility] [place] [place] [address] * (ABNORMAL) Protime-INR (10/31/2023 2:25 AM CDT) PT 20.6(H) 10.3 - 13.7 sec INR 1.81(H) 0.90 - 1.20 [facility] Comment: Interpretive data Oral anticoagulant therapeutic ranges: Venous thromboembolism prophylaxis or treatment: 2.0-3.0 CARDIOLOGY Standard range: 2.0-3.0 High-intensity range: 2.5-3.5 Refer to indication-specific guidelines for appropriate target ranges for prosthetic heart valve replacement. Current interpretive data was last revised on 2019. Blood 10/31/2023 2:25 AM CDT 10/31/2023 2:34 AM CDT Byron Olvera NP LAB BLOOD ORDERABLES Fi nal Result Performing Organization Address [facility] Co de Phone Number [facility] [address] [facility] [place] [place] [address] * Magnesium (10/31/2023 2:25 AM CDT) Magnesium 2.5 1.4 - 2.5 mg/dL Blood 10/31/2023 2:25 AM CDT 10/31/2023 2:35 AM CDT Byron Olvera NP LAB BLOOD ORDERABLES Fi nal Result Performing Organization Address City/[facility] Co de Phone Number [facility] [address] [facility] [place] [address] * (ABNORMAL) Renal function panel (10/31/2023 2:25 AM CDT) [facility] Sodium 131(L) 135 - 145 mmol/L Potassium, pl 4.0 3.3 - 4.9 mmol/L [facility] Chloride 91(L) 97 - 110 mmol/L [facility] CO2 24 22 - 32 mmol/L [facility] Anion gap 16(H) 2 - 15 mmol/L [facility] BUN 90(H) 6 - 25 mg/dL [facility] Creatinine 9.34(H) 0.80 - 1.30 mg/dL [facility] Glucose 275(H) 70 - 199 mg/dL [facility] Comment: Interpretive Data Fasting glucose [...] 2022. Calcium 9.5 8.5 - 10.3 mg/dL [facility] Phosphorus, pl 4.8(H) 2.3 - 4.5 mg/dL [facility] Albumin 2.7(L) 3.5 - 5.0 g/dL [facility] Blood 10/31/2023 2:25 AM CDT 10/31/2023 2:35 AM CDT Byron Olvera NP LAB BLOOD ORDERABLES nal Result [facility] [address] Department [place] [address] * (ABNORMAL) CBC without differential (10/31/2023 2:25 AM CDT) [facility] WBC 6.6 3.8 - 9.9 K/cumm Hgb 7.9(L) 13.0 - 17.5 g/dL [facility] Hct 25.5(L) 38.9 - 50.3 % [facility] Plt 366 150 - 400 K/cumm [facility] MPV 9.3 9.1 - 12.3 fL [facility] RBC 2.70(L) 4.30 - 5.80 M/cumm [facility] MCV 94.4 81.3 - 96.4 fL [facility] MCH 29.3 27.1 - 33.3 pg [facility] MCHC 31.0(L) 32.3 - 35.7 g/dL [facility] RDW CV 15.1(H) 11.1 - 14.9 % [facility] RDW SD 52.3(H) 35.7 - 48.1 fL [facility] NRBC abs 0.00 0.00 - 0.01 K/cumm [facility] Blood 10/31/2023 2:25 AM CDT 10/31/2023 2:34 AM CDT us Byron Olvera RESPIRATORY CARE TECHNICIAN LAB BLOOD ORDERABLES Fi nal Result [facility] [address] Department [place] [address] * (ABNORMAL) POCT glucose (10/30/2023 9:39 PM CDT) [facility] Glucose, POC 238(H) 70 - 140 mg/dL Comment: For Glucose values <35 mg/dl when Hematocrit is >60 mg/dl,the test may not accurately detect significant hypoglycemia,and testing in the Laboratory should be considered if clinically indicated. Blood 10/30/2023 9:39 PM CDT 10/30/2023 9:39 PM CDT us Jaqueline Valero MD LAB POCT ORDERABLES - APRIL CE Final Result [facility] [address] [place] [address] * (ABNORMAL) POCT glucose (10/30/2023 5:31 PM [...] APRIL CE Final Result Performing Organization Address [facility] de Phone Number [facility] [address] [place] [address] * (ABNORMAL) POCT glucose (10/30/2023 12:17 PM CDT) Glucose, POC 230(H) 70 - 140 mg/dL Comment: For Glucose values <35 mg/dl when Hematocrit is >60 mg/dl,the test may not accurately detect significant hypoglycemia,and testing in the Laboratory should be considered if clinically indicated. Blood 10/30/2023 12:1 7 PM CDT 10/30/2023 12:17 PM CDT Jaqueline Valero MD LAB POCT ORDERABLES - APRIL CE Final Result Performing Organization Address [facility] Co de Phone Number [facility] [address] [place] [address] * (ABNORMAL) POCT glucose (10/30/2023 6:20 AM CDT) Glucose, POC 295(H) 70 - 140 mg/dL Comment: For Glucose values <35 mg/dl when Hematocrit is >60 mg/dl,the test may not accurately detect significant hypoglycemia,and testing in the Laboratory should be considered if clinically indicated. Blood 10/30/2023 6:20 AM CDT 10/30/2023 6:20 AM CDT us Jaqueline Valero MD LAB POCT ORDERABLES - APRIL CE Final Result Performing Organization Address City/[facility]/ZIP Co de Phone Number [facility] [address] Department [place] [address] * eGFR (10/30/2023 4:18 AM CDT) eGFR [...] NP LAB BLOOD ORDERABLES Fi nal Result [facility] [address] [facility] [place] [place] [address] * (ABNORMAL) Protime-INR (10/30/2023 4:18 AM CDT) [facility] PT 22.8(H) 10.3 - 13.7 sec INR 2.00(H) 0.90 - 1.20 [facility] Comment: Interpretive data Oral anticoagulant therapeutic ranges: Venous thromboembolism prophylaxis or treatment: 2.0-3.0 CARDIOLOGY Standard range: 2.0-3.0 High-intensity range: 2.5-3.5 Refer to indication-specific guidelines for appropriate target ranges for prosthetic heart valve replacement. Current interpretive data was last revised on 2019. Blood 10/30/2023 4:18 AM CDT 10/30/2023 4:46 AM CDT Byron Olvera NP LAB BLOOD ORDERABLES Fi nal Result Performing Organization Address City/[facility]/ZIP Co de Phone Number [facility] [address] [facility] [place] [place] [address] * Magnesium (10/30/2023 4:18 AM CDT) [facility] Magnesium 2.4 1.4 - 2.5 mg/dL Blood 10/30/2023 4:18 AM CDT 10/30/2023 4:45 AM CDT Byron Olvear RESPIRATORY CARE TECHNICIAN LAB BLOOD ORDERABLES Fi nal Result [facility] [address] [facility] [place] [place] [address] * (ABNORMAL) Renal function panel (10/30/2023 4:18 AM CDT) [facility] Sodium 132(L) 135 - 145 mmol/L Potassium, pl 4.0 3.3 - 4.9 mmol/L [facility] Chloride 89(L) 97 - 110 mmol/L [facility] CO2 25 22 - 32 mmol/L [facility] Anion gap 18(H) 2 - 15 mmol/L [facility] BUN 93(H) 6 - 25 mg/dL [facility] Creatinine 9.55(H) 0.80 - 1.30 mg/dL [facility] Glucose 292(H) 70 - 199 mg/dL [facility] Comment: Interpretive Data Fasting glucose [...] 2022. Calcium 9.3 8.5 - 10.3 mg/dL [facility] Phosphorus, pl 5.4(H) 2.3 - 4.5 mg/dL [facility] Albumin 2.7(L) 3.5 - 5.0 g/dL [facility] Blood 10/30/2023 4:18 AM CDT 10/30/2023 4:45 AM CDT us Byron Olvera NP LAB BLOOD ORDERABLES Fi nal Result [facility] [address] Department [place] [address] * (ABNORMAL) CBC without differential (10/30/2023 4:18 AM CDT) WBC 6.5 3.8 - 9.9 K/cumm Hgb 7.6(L) 13.0 - 17.5 g/dL [facility] Hct 24.3(L) 38.9 - 50.3 % [facility] Plt 317 150 - 400 K/cumm [facility] MPV 9.8 9.1 - 12.3 fL [facility] RBC 2.59(L) 4.30 - 5.80 M/cumm [facility] MCV 93.8 81.3 - 96.4 fL [facility] MCH 29.3 27.1 - 33.3 pg [facility] MCHC 31.3(L) 32.3 - 35.7 g/dL [facility] RDW CV 15.1(H) 11.1 - 14.9 % [facility] RDW SD 52.2(H) 35.7 - 48.1 fL [facility] NRBC abs 0.00 0.00 - 0.01 K/cumm [facility] Blood 10/30/2023 4:18 AM CDT 10/30/2023 4:45 AM CDT Byron Olvera RESPIRATORY CARE TECHNICIAN LAB BLOOD ORDERABLES Fi nal Result Performing Organization Address [facility]/ZIP Co de Phone Number [facility] [address] [place] [address] * (ABNORMAL) POCT glucose (10/29/2023 9:59 PM CDT) Glucose, POC 258(H) 70 - 140 mg/dL Comment: For Glucose values <35 mg/dl when Hematocrit is >60 mg/dl,the test may not accurately detect significant hypoglycemia,and testing in the Laboratory should be considered if clinically indicated. Blood 10/29/2023 9:59 PM CDT 10/29/2023 9:59 PM CDT Jaqueline Valero MD LAB POCT ORDERABLES - APRIL CE Final Result Performing Organization Address City/[facility]/ZIP Co de Phone Number [facility] [address] [place] [address] * (ABNORMAL) POCT glucose (10/29/2023 5:41 PM [...] ORDERABLES - APRIL CE Final Result [facility] [address] [place] [address] * US Vein Duplex Lower Extremity Bilateral [...] ORDERABLES - APRIL CE Final Result [facility] [address] Department [place] [address] * (ABNORMAL) POCT glucose (10/29/2023 [...] ORDERABLES - APRIL CE Final Result [facility] [address] Department [place] [address] * eGFR (10/29/2023 4:04 AM CDT) eGFR 6 mL/min/1. 73 m2 [...] CDT 10/29/2023 4:10 AM CDT Byron Olvera RESPIRATORY CARE TECHNICIAN LAB BLOOD ORDERABLES Fi nal Result [facility] [address] [place] [place] [address] * (ABNORMAL) Protime-INR (10/29/2023 4:04 AM CDT) Pathologist [facility] PT 26.9(H) 10.3 - 13.7 sec INR 2.36(H) 0.90 - 1.20 [facility] Comment: Interpretive data Oral anticoagulant therapeutic ranges: Venous thromboembolism prophylaxis or treatment: 2.0-3.0 CARDIOLOGY Standard range: 2.0-3.0 High-intensity range: 2.5-3.5 Refer to indication-specific guidelines for appropriate target ranges for prosthetic heart valve replacement. Current interpretive data was last revised on 2019. Blood 10/29/2023 4:04 AM CDT 10/29/2023 4:11 AM CDT Byron Olvera RESPIRATORY CARE TECHNICIAN LAB BLOOD ORDERABLES Fi nal Result [facility] [address] [place] [address] * Magnesium (10/29/2023 4:04 AM CDT) Pathologist [facility] Magnesium 2.4 1.4 - 2.5 mg/dL Blood 10/29/2023 4:04 AM CDT 10/29/2023 4:10 AM CDT Byron Olvera RESPIRATORY CARE TECHNICIAN LAB BLOOD ORDERABLES Fi nal Result [facility] [address] [place] [place] [address] * (ABNORMAL) Renal function panel (10/29/2023 4:04 AM CDT) Pathologist [facility] Sodium 129(L) 135 - 145 mmol/L Potassium, pl 4.1 3.3 - 4.9 mmol/L [facility] Chloride 87(L) 97 - 110 mmol/L [facility] CO2 23 22 - 32 mmol/L [facility] Anion gap 19(H) 2 - 15 mmol/L [facility] BUN 85(H) 6 - 25 mg/dL [facility] Creatinine 9.66(H) 0.80 - 1.30 mg/dL [facility] Glucose 297(H) 70 - 199 mg/dL [facility] Comment: Interpretive Data Fasting glucose [...] 2022. Calcium 9.5 8.5 - 10.3 mg/dL [facility] Phosphorus, pl 5.8(H) 2.3 - 4.5 mg/dL [facility] Albumin 2.9(L) 3.5 - 5.0 g/dL [facility] Blood 10/29/2023 4:04 AM CDT 10/29/2023 4:10 AM CDT Byron Olvera NP LAB BLOOD ORDERABLES Fi nal Result [facility] [address] Department [place] [address] * (ABNORMAL) CBC without differential (10/29/2023 4:04 AM CDT) WBC 7.0 3.8 - 9.9 K/cumm Hgb 7.9(L) 13.0 - 17.5 g/dL [facility] Hct 25.2(L) 38.9 - 50.3 % [facility] Plt 291 150 - 400 K/cumm [facility] MPV 10.0 9.1 - 12.3 fL [facility] RBC 2.70(L) 4.30 - 5.80 M/cumm [facility] MCV 93.3 81.3 - 96.4 fL [facility] MCH 29.3 27.1 - 33.3 pg [facility] MCHC 31.3(L) 32.3 - 35.7 g/dL [facility] RDW CV 15.4(H) 11.1 - 14.9 % [facility] RDW SD 52.0(H) 35.7 - 48.1 fL [facility] NRBC abs 0.00 0.00 - 0.01 K/cumm [facility] Blood 10/29/2023 4:04 AM CDT 10/29/2023 4:11 AM CDT us Byron Olvera RESPIRATORY CARE TECHNICIAN LAB BLOOD ORDERABLES Fi nal Result Performing Organization Address [facility]/ZIP Co de Phone Number [facility] [address] [employer] [place], [place] [id number] * (ABNORMAL) POCT glucose (10/28/2023 8:22 PM TROMPER) Glucose, POC 195(H) 70 - 140 mg/dL Comment: For Glucose values <35 mg/dl when Hematocrit is >60 mg/dl,the test may not accurately detect significant hypoglycemia,and testing in the Laboratory should be considered if clinically indicated. Blood 10/28/2023 8:22 PM TROMPER 10/28/2023 8:22 PM TROMPER Jaqueline Valero MD LAB POCT ORDERABLES - APRIL CE Final Result Performing Organization Address [facility]/ZIP Co de Phone Number [facility] [address] Department [facility] [place], [place] [id number] * (ABNORMAL) POCT glucose (10/28/2023 5:24 PM TROMPER) Glucose, POC 222(H) 70 - 140 mg/dL Comment: For Glucose values <35 mg/dl when Hematocrit is >60 mg/dl,the test may not accurately detect significant hypoglycemia,and testing in the Laboratory should be considered if clinically indicated. Blood 10/28/2023 5:24 PM TROMPER 10/28/2023 5:24 PM TROMPER Jaqueline Valero MD LAB POCT ORDERABLES - APRIL CE Final Result Performing Organization Address [facility] de Phone Number [facility] [address] [facility] [place] [place] [address] * (ABNORMAL) POCT glucose (10/28/2023 12:45 PM TROMPER) Glucose, POC 201(H) 70 - 140 mg/dL Comment: For Glucose values <35 mg/dl when Hematocrit is >60 mg/dl,the test may not accurately detect significant hypoglycemia,and testing in the Laboratory should be considered if clinically indicated. Blood 10/28/2023 12:4 5 PM TROMPER 10/28/2023 12:45 PM TROMPER Jaqueline Valero MD LAB POCT ORDERABLES - APRIL CE Final Result Performing Organization Address [facility] de Phone Number [facility] [address] [facility] [place] [place] [address] * POCT glucose (10/28/2023 8:04 AM TROMPER) Glucose, POC 101 70 - 140 mg/dL Comment: For Glucose values <35 mg/dl when Hematocrit is >60 mg/dl,the test may not accurately detect significant hypoglycemia,and testing in the Laboratory should be considered if clinically indicated. Blood 10/28/2023 8:0 4 AM TROMPER 10/28/2023 8:04 AM TROMPER Jaqueline Valero MD LAB POCT ORDERABLES - APRIL CE Final Result Performing Organization Address [facility]/ZIP Co de Phone Number [facility] [address] Department [place] [address] * XR Chest 1 View - Portable - in AM (10/28/2023 6:00 AM TROMPER) Anatomical Region Laterality Modality Body, Chest N/A Computed Radiogr aphy 10/28/2023 8:40 AM TROMPER Impressions 10/28/2023 8:40 AM TROMPER Comparison made to radiograph 10/27/2023. Right internal jugular approach central venous catheter tip overlying the superior vena cava. ??Median sternotomy wires and plates in similar alignment. Likely small bilateral pleural effusions with fluid along the right minor fissure. ??There is mild bibasilar atelectasis. ??No pneumothorax. ??Cardiomediastinal silhouette is stably enlarged. Electronically signed by: Trace Barrow M.D. Narrative 10/28/2023 8:40 AM TROMPER EXAMINATION: XR CHEST 1 VIEW Procedure Note [...] signed by: Trace Barrow M.D. Byron Olvera RESPIRATORY CARE TECHNICIAN IMG XR PROCEDURES Final Result * eGFR (10/28/2023 12:34 AM TROMPER) eGFR 6 mL/min/1. 73 m2 Comment: Interpretive [...] reviewed 2021. Blood 10/28/2023 12:3 4 AM TROMPER 10/28/2023 1:02 AM TROMPER us Byron Olvera NP LAB BLOOD ORDERABLES Fi nal Result Performing Organization Address [facility] Co de Phone Number [facility] [address] [employer] [place] [address] * (ABNORMAL) aPTT (10/28/2023 12:34 AM TROMPER) aPTT 102(H) 28 - 38 sec Comment: Interpretive Data Heparin therapeutic range: 66.0 - 100.0 seconds. Range based on correlation with therapeutic heparin activity range of 0.3 - 0.7 Units/mL. Current interpretive data was last revised on 2023. Blood 10/28/2023 12:3 4 AM TROMPER 10/28/2023 1:02 AM TROMPER Narrative ALESSANDRA MACKENZIE - 10/28/2023 1:15 AM TROMPER While on heparin us Jaqueline Valero MD LAB BLOOD ORDERABLES Final Result Performing Organization Address [facility] Co de Phone Number [facility] [address] [place] [address] * (ABNORMAL) Protime-INR (10/28/2023 12:34 AM TROMPER) [facility] PT 30.1(H) 10.3 - 13.7 sec INR 2.64(H) 0.90 - 1.20 [facility] Comment: Interpretive data Oral anticoagulant therapeutic ranges: Venous thromboembolism prophylaxis or treatment: 2.0-3.0 CARDIOLOGY Standard range: 2.0-3.0 High-intensity range: 2.5-3.5 Refer to indication-specific guidelines for appropriate target ranges for prosthetic heart valve replacement. Current interpretive data was last revised on 2019. Blood 10/28/2023 12:3 4 AM TROMPER 10/28/2023 1:02 AM TROMPER Byron Olvera NP LAB BLOOD ORDERABLES Fi nal Result Performing Organization Address [facility]/ZIP Co de Phone Number [facility] [address] [employer] [place] [place] [address] * Magnesium (10/28/2023 12:34 AM TROMPER) [facility] Magnesium 2.3 1.4 - 2.5 mg/dL Blood 10/28/2023 12:3 4 AM TROMPER 10/28/2023 1:02 AM TROMPER Byron Olvera NP LAB BLOOD ORDERABLES Fi nal Result Performing Organization Address City/[facility]/ZIP Co de Phone Number [facility] [address] [facility] [employer] [place] [address] * (ABNORMAL) Renal function panel (10/28/2023 12:34 AM TROMPER) [facility] Sodium 128(L) 135 - 145 mmol/L Potassium, pl 4.4 3.3 - 4.9 mmol/L [facility] Chloride 87(L) 97 - 110 mmol/L [facility] CO2 22 22 - 32 mmol/L [facility] Anion gap 19(H) 2 - 15 mmol/L [facility] BUN 90(H) 6 - 25 mg/dL [facility] Creatinine 9.98(H) 0.80 - 1.30 mg/dL [facility] Glucose 270(H) 70 - 199 mg/dL [facility] Comment: Interpretive Data Fasting glucose [...] 2022. Calcium 8.9 8.5 - 10.3 mg/dL [facility] Phosphorus, pl 6.3(H) 2.3 - 4.5 mg/dL [facility] Albumin 2.9(L) 3.5 - 5.0 g/dL [facility] Blood 10/28/2023 12:3 4 AM TROMPER 10/28/2023 1:02 AM TROMPER Byron Olvera NP LAB BLOOD ORDERABLES Fi nal Result [facility] [address] Department of Laboratories [place], [place] [id number] * (ABNORMAL) CBC without differential (10/28/2023 12:34 AM TROMPER) Pathologist [facility] WBC 7.4 3.8 - 9.9 K/cumm Hgb 7.4(L) 13.0 - 17.5 g/dL [facility] Hct 24.1(L) 38.9 - 50.3 % [facility] Plt 244 150 - 400 K/cumm [facility] MPV 10.5 9.1 - 12.3 fL [facility] RBC 2.55(L) 4.30 - 5.80 M/cumm [facility] MCV 94.5 81.3 - 96.4 fL [facility] MCH 29.0 27.1 - 33.3 pg [facility] MCHC 30.7(L) 32.3 - 35.7 g/dL [facility] RDW CV 15.6(H) 11.1 - 14.9 % [facility] RDW SD 53.4(H) 35.7 - 48.1 fL [facility] NRBC abs 0.00 0.00 - 0.01 K/cumm [facility] Blood 10/28/2023 12:3 4 AM TROMPER 10/28/2023 1:03 AM TROMPER Byron Olvera RESPIRATORY CARE TECHNICIAN LAB BLOOD ORDERABLES Fi nal Result Performing Organization Address [facility] Co de Phone Number [facility] [address] [employer] [place] [address] * (ABNORMAL) POCT glucose (10/27/2023 10:01 PM TROMPER) Glucose, POC 312(H) 70 - 140 mg/dL Comment: For Glucose values <35 mg/dl when Hematocrit is >60 mg/dl,the test may not accurately detect significant hypoglycemia,and testing in the Laboratory should be considered if clinically indicated. Blood 10/27/2023 10:0 1 PM TROMPER 10/27/2023 10:01 PM TROMPER us Jaqueline Valero MD LAB POCT ORDERABLES - APRIL CE Final Result Performing Organization Address [facility] Co de Phone Number [facility] [address] [employer] [place] [address] * POCT glucose (10/27/2023 5:48 PM TROMPER) Glucose, POC 108 70 - 140 mg/dL Comment: For Glucose values <35 mg/dl when Hematocrit is >60 mg/dl,the test may not accurately detect significant hypoglycemia,and testing in the Laboratory should be considered if clinically indicated. Blood 10/27/2023 5:48 PM TROMPER 10/27/2023 5:48 PM TROMPER Jaqueline Valero MD LAB POCT ORDERABLES - APRIL CE Final Result Performing Organization Address [facility] de Phone Number [facility] [address] [facility] [place] [place] [address] * (ABNORMAL) POCT glucose (10/27/2023 11:54 AM TROMPER) Glucose, POC 232(H) 70 - 140 mg/dL Comment: For Glucose values <35 mg/dl when Hematocrit is >60 mg/dl,the test may not accurately detect significant hypoglycemia,and testing in the Laboratory should be considered if clinically indicated. Blood 10/27/2023 11:5 4 AM TROMPER 10/27/2023 11:54 AM TROMPER Jaqueline Valero MD LAB POCT ORDERABLES - APRIL CE Final Result Performing Organization Address [facility] de Phone Number [facility] [address] [facility] [employer] [place] [address] * (ABNORMAL) T4, free (10/27/2023 11:02 AM TROMPER) Free T4 0.68(L) 0.90 - 1.70 ng/dL Blood 10/27/2023 11:0 2 AM TROMPER 10/27/2023 11:14 AM TROMPER Result [facility] Fernandez Carranza MD LAB BLOOD ORDERABLES Final Resu lt Performing Organization Address [facility] de Phone Number [facility] [address] [facility] [place] [place] [address] * (ABNORMAL) POCT glucose (10/27/2023 8:28 AM TROMPER) Glucose, POC 255(H) 70 - 140 mg/dL Comment: For Glucose values <35 mg/dl when Hematocrit is >60 mg/dl,the test may not accurately detect significant hypoglycemia,and testing in the Laboratory should be considered if clinically indicated. Blood 10/27/2023 8:28 AM TROMPER 10/27/2023 8:28 AM TROMPER Jaqueline Valero MD LAB POCT ORDERABLES - APRIL CE Final Result [facility] [address] Department [place] [address] * XR Chest 1 View - Portable - in AM (10/27/2023 6:14 AM TROMPER) Anatomical Region Laterality Modality Body, Chest N/A Computed Radiogr aphy 10/27/2023 10:5 5 AM TROMPER Impressions 10/27/2023 10:55 AM TROMPER Right internal jugular central venous catheter terminates in the superior cavoatrial junction. Unchanged small left pleural effusion with associated atelectasis. No consolidation to suggest pneumonia. ??No pneumothorax. ??Cardiac mediastinal silhouette is stable. Electronically signed by: Gucci Moe M.D. Narrative 10/27/2023 10:55 AM TROMPER EXAMINATION: XR CHEST 1 VIEW HISTORY: pleural effusion Procedure Note Gucci Moe MD - 10/27/2023 EXAMINATION: XR CHEST 1 VIEW HISTORY: pleural effusion IMPRESSION: Right internal jugular central venous catheter terminates in the superior cavoatrial junction. Unchanged small left pleural effusion with associated atelectasis. No consolidation to suggest pneumonia. No pneumothorax. Cardiac mediastinal silhouette is stable. Electronically signed by: Gucci Moe M.D. us Byron Olvera RESPIRATORY CARE TECHNICIAN IMG XR PROCEDURES Final Result * (ABNORMAL) Osmolality, blood (10/27/2023 6:02 AM TROMPER) Osmo 313(H) 275 - 295 mOsm/kg Blood 10/27/2023 6:02 AM TROMPER 10/27/2023 6:12 AM TROMPER Fernandez Carranza MD LAB BLOOD ORDERABLES Final Resu lt Performing Organization Address [facility] de Phone Number [facility] [address] [facility] [employer] [place], [place] [id number] * (ABNORMAL) TSH (10/27/2023 2:30 AM TROMPER) Pathologist [facility] Thyroid Stimulating Hormone 13.20(H) 0.30 - 4.20 mcIUnit/mL Blood 10/27/2023 2:30 AM TROMPER 10/27/2023 2:42 AM TROMPER Jaqueline Valero MD LAB BLOOD ORDERABLES Final Result Performing Organization Address [facility] de Phone Number [facility] [address] [facility] [place] [place] [address] * (ABNORMAL) aPTT (10/27/2023 2:30 AM TROMPER) [facility] aPTT 91(H) 28 - 38 sec Comment: Interpretive Data Heparin therapeutic range: 66.0 - 100.0 seconds. Range based on correlation with therapeutic heparin activity range of 0.3 - 0.7 Units/mL. Current interpretive data was last revised on 2023. Blood 10/27/2023 2:30 AM TROMPER 10/27/2023 2:34 AM TROMPER Jaqueline Valero MD LAB BLOOD ORDERABLES Final Result Performing Organization Address [facility] de Phone Number [facility] [address] [facility] [place] [place] [address] * eGFR (10/27/2023 2:30 AM TROMPER) Pathologist [facility] eGFR 6 mL/min/1. 73 m2 [...] last reviewed 2021. Blood 10/27/2023 2:30 AM TROMPER 10/27/2023 2:42 AM TROMPER us Byron Olvera NP LAB BLOOD ORDERABLES Fi nal Result [facility] [address] Department [place] [address] * (ABNORMAL) Protime-INR (10/27/2023 2:30 AM TROMPER) PT 22.7(H) 10.3 - 13.7 sec INR 1.99(H) 0.90 - 1.20 [facility] Comment: Interpretive data Oral anticoagulant therapeutic ranges: Venous thromboembolism prophylaxis or treatment: 2.0-3.0 CARDIOLOGY Standard range: 2.0-3.0 High-intensity range: 2.5-3.5 Refer to indication-specific guidelines for appropriate target ranges for prosthetic heart valve replacement. Current interpretive data was last revised on 2019. Blood 10/27/2023 2:30 AM TROMPER 10/27/2023 2:34 AM TROMPER us Byron Olvera RESPIRATORY CARE TECHNICIAN LAB BLOOD ORDERABLES Fi nal Result Performing Organization Address City/[facility]/ZIP Co de Phone Number [facility] [address] [employer] [place] [address] * Magnesium (10/27/2023 2:30 AM TROMPER) [facility] Magnesium 2.3 1.4 - 2.5 mg/dL Blood 10/27/2023 2:30 AM TROMPER 10/27/2023 2:42 AM TROMPER Byron Olvera RESPIRATORY CARE TECHNICIAN LAB BLOOD ORDERABLES Fi nal Result Performing Organization Address [facility] Co de Phone Number [facility] [address] [employer] [place] [place] [place] [address] * (ABNORMAL) Renal function panel (10/27/2023 2:30 AM TROMPER) [facility] Sodium 123(L) 135 - 145 mmol/L Potassium, pl 4.2 3.3 - 4.9 mmol/L [facility] Chloride 85(L) 97 - 110 mmol/L [facility] CO2 24 22 - 32 mmol/L [facility] Anion gap 14 2 - 15 mmol/L [facility] BUN 87(H) 6 - 25 mg/dL [facility] Creatinine 10.09(H) 0.80 - 1.30 mg/dL [facility] Glucose 192 70 - 199 mg/dL [facility] Comment: Interpretive Data Fasting glucose [...] 2022. Calcium 8.7 8.5 - 10.3 mg/dL [facility] Phosphorus, pl 7.1(H) 2.3 - 4.5 mg/dL [facility] Albumin 2.9(L) 3.5 - 5.0 g/dL [facility] Blood 10/27/2023 2:30 AM TROMPER 10/27/2023 2:42 AM TROMPER Byron Olvera NP LAB BLOOD ORDERABLES Fi nal Result Performing Organization Address [facility] Co de Phone Number [facility] [address] [employer] [place], [place] [id number] * (ABNORMAL) CBC without differential (10/27/2023 2:30 AM TROMPER) [facility] WBC 8.0 3.8 - 9.9 K/cumm Hgb 7.5(L) 13.0 - 17.5 g/dL [facility] Hct 23.7(L) 38.9 - 50.3 % [facility] Plt 222 150 - 400 K/cumm [facility] MPV 10.3 9.1 - 12.3 fL [facility] RBC 2.55(L) 4.30 - 5.80 M/cumm [facility] MCV 92.9 81.3 - 96.4 fL [facility] MCH 29.4 27.1 - 33.3 pg [facility] MCHC 31.6(L) 32.3 - 35.7 g/dL [facility] RDW CV 15.6(H) 11.1 - 14.9 % [facility] RDW SD 53.1(H) 35.7 - 48.1 fL [facility] NRBC abs 0.00 0.00 - 0.01 K/cumm [facility] Blood 10/27/2023 2:30 AM TROMPER 10/27/2023 2:42 AM TROMPER Byron Olvera NP LAB BLOOD ORDERABLES Fi nal Result Performing Organization Address [facility]/ZIP Co de Phone Number [facility] [address] Department [facility] [place], [place] [id number] * (ABNORMAL) POCT glucose (10/26/2023 11:15 PM TROMPER) Glucose, POC 220(H) 70 - 140 mg/dL Comment: For Glucose values <35 mg/dl when Hematocrit is >60 mg/dl,the test may not accurately detect significant hypoglycemia,and testing in the Laboratory should be considered if clinically indicated. Blood 10/26/2023 11:1 5 PM TROMPER 10/26/2023 11:15 PM TROMPER Jaqueline Valero MD LAB POCT ORDERABLES - APRIL CE Final Result Performing Organization Address [facility] Co de Phone Number [facility] [address] [facility] [place] [place] [address] * (ABNORMAL) POCT glucose (10/26/2023 4:53 PM TROMPER) Glucose, POC 333(H) 70 - 140 mg/dL Comment: For Glucose values <35 mg/dl when Hematocrit is >60 mg/dl,the test may not accurately detect significant hypoglycemia,and testing in the Laboratory should be considered if clinically indicated. Blood 10/26/2023 4:53 PM TROMPER 10/26/2023 4:53 PM TROMPER Jaqueline Valero MD LAB POCT ORDERABLES - APRIL CE Final Result Performing Organization Address [facility] Co de Phone Number [facility] [address] [facility] [place] [place] [address] * (ABNORMAL) POCT glucose (10/26/2023 11:57 AM TROMPER) Glucose, POC 203(H) 70 - 140 mg/dL Comment: For Glucose values <35 mg/dl when Hematocrit is >60 mg/dl,the test may not accurately detect significant hypoglycemia,and testing in the Laboratory should be considered if clinically indicated. Blood 10/26/2023 11:5 7 AM TROMPER 10/26/2023 11:57 AM TROMPER Jaqueline Valero MD LAB POCT ORDERABLES - APRIL CE Final Result Performing Organization Address [facility] Co de Phone Number [facility] [address] Department [place] [address] * POCT glucose (10/26/2023 8:00 AM TROMPER) [facility] Signature Glucose, POC 90 70 - 140 mg/dL Comment: For Glucose values <35 mg/dl when Hematocrit is >60 mg/dl,the test may not accurately detect significant hypoglycemia,and testing in the Laboratory should be considered if clinically indicated. Blood 10/26/2023 8:00 AM TROMPER 10/26/2023 8:00 AM TROMPER Jaqueline Valero MD LAB POCT ORDERABLES - APRIL CE Final Result Performing Organization Address [facility] de Phone Number [facility] [address] Department [place] [address] * XR Chest 1 View - Portable - in AM (10/26/2023 5:09 AM TROMPER) Anatomical Region Laterality Modality Body, Chest N/A Computed Radiogr aphy 10/26/2023 7:40 AM TROMPER Impressions 10/26/2023 7:40 AM TROMPER Comparison chest radiograph 10/25/2023 at 6:39 AM. [...] Chris Troncoso M.D. Narrative 10/26/2023 7:40 AM TROMPER EXAMINATION: ??1 view chest radiograph Procedure Note [...] signed by: Chris Troncoso M.D. Byron Olvera RESPIRATORY CARE TECHNICIAN IMG XR PROCEDURES Final Result * eGFR (10/26/2023 2:29 AM TROMPER) eGFR 6 mL/min/1. 73 m2 Comment: Interpretive [...] last reviewed 2021. Blood 10/26/2023 2:29 AM TROMPER 10/26/2023 3:11 AM TROMPER Byron Olvera RESPIRATORY CARE TECHNICIAN LAB BLOOD ORDERABLES Fi nal Result Performing Organization Address [facility] Co de Phone Number [facility] [address] [place] [place] [address] * (ABNORMAL) aPTT (10/26/2023 2:29 AM TROMPER) aPTT 74(H) 28 - 38 sec Comment: Interpretive Data Heparin therapeutic range: 66.0 - 100.0 seconds. Range based on correlation with therapeutic heparin activity range of 0.3 - 0.7 Units/mL. Current interpretive data was last revised on 2023. Blood 10/26/2023 2:29 AM TROMPER 10/26/2023 2:57 AM TROMPER Jaqueline Valero MD LAB BLOOD ORDERABLES Final Result Performing Organization Address [facility] de Phone Number [facility] [address] [facility] [employer] [place] [address] * (ABNORMAL) Protime-INR (10/26/2023 2:29 AM TROMPER) PT 19.4(H) 10.3 - 13.7 sec INR 1.70(H) 0.90 - 1.20 [facility] Comment: Interpretive data Oral anticoagulant therapeutic ranges: Venous thromboembolism prophylaxis or treatment: 2.0-3.0 CARDIOLOGY Standard range: 2.0-3.0 High-intensity range: 2.5-3.5 Refer to indication-specific guidelines for appropriate target ranges for prosthetic heart valve replacement. Current interpretive data was last revised on 2019. Blood 10/26/2023 2:29 AM TROMPER 10/26/2023 2:57 AM TROMPER Byron Olvera RESPIRATORY CARE TECHNICIAN LAB BLOOD ORDERABLES Fi nal Result Performing Organization Address [facility] Co de Phone Number [facility] [address] [facility] [place] [employer] [place] [address] * Magnesium (10/26/2023 2:29 AM TROMPER) [facility] Magnesium 2.2 1.4 - 2.5 mg/dL Blood 10/26/2023 2:29 AM TROMPER 10/26/2023 3:11 AM TROMPER Byron Olvera RESPIRATORY CARE TECHNICIAN LAB BLOOD ORDERABLES Fi nal Result Performing Organization Address [facility] de Phone Number [facility] [address] [facility] [employer] [place] [address] * (ABNORMAL) Renal function panel (10/26/2023 2:29 AM TROMPER) [facility] Sodium 124(L) 135 - 145 mmol/L Potassium, pl 4.2 3.3 - 4.9 mmol/L [facility] Chloride 84(L) 97 - 110 mmol/L [facility] CO2 23 22 - 32 mmol/L [facility] Anion gap 17(H) 2 - 15 mmol/L [facility] BUN 85(H) 6 - 25 mg/dL [facility] Creatinine 9.95(H) 0.80 - 1.30 mg/dL [facility] Glucose 206(H) 70 - 199 mg/dL [facility] Comment: Interpretive Data Fasting glucose [...] 2022. Calcium 8.6 8.5 - 10.3 mg/dL [facility] Phosphorus, pl 6.5(H) 2.3 - 4.5 mg/dL [facility] Albumin 3.0(L) 3.5 - 5.0 g/dL [facility] Blood 10/26/2023 2:29 AM TROMPER 10/26/2023 3:11 AM TROMPER Byron Olvera NP LAB BLOOD ORDERABLES Fi nal Result Performing Organization Address City/[facility]/ZIP Co de Phone Number [facility] [address] Department [place] [address] * (ABNORMAL) CBC without differential (10/26/2023 2:29 AM TROMPER) WBC 7.9 3.8 - 9.9 K/cumm Hgb 7.9(L) 13.0 - 17.5 g/dL [facility] Hct 24.7(L) 38.9 - 50.3 % [facility] Plt 209 150 - 400 K/cumm [facility] MPV 10.6 9.1 - 12.3 fL [facility] RBC 2.64(L) 4.30 - 5.80 M/cumm [facility] MCV 93.6 81.3 - 96.4 fL [facility] MCH 29.9 27.1 - 33.3 pg [facility] MCHC 32.0(L) 32.3 - 35.7 g/dL [facility] RDW CV 15.5(H) 11.1 - 14.9 % [facility] RDW SD 52.4(H) 35.7 - 48.1 fL [facility] NRBC abs 0.00 0.00 - 0.01 K/cumm [facility] Blood 10/26/2023 2:29 AM TROMPER 10/26/2023 3:11 AM TROMPER Byron Olvera NP LAB BLOOD ORDERABLES Fi nal Result Performing Organization Address City/[facility]/ZIP Co de Phone Number [facility] [address] [place] [place] [address] * (ABNORMAL) aPTT (10/25/2023 9:15 PM TROMPER) aPTT 78(H) 28 - 38 sec Comment: Interpretive Data Heparin therapeutic range: 66.0 - 100.0 seconds. Range based on correlation with therapeutic heparin activity range of 0.3 - 0.7 Units/mL. Current interpretive data was last revised on 2023. Blood 10/25/2023 9:15 PM TROMPER 10/25/2023 9:19 PM TROMPER Jaqueline Valero MD LAB BLOOD ORDERABLES Final Result Performing Organization Address [facility] Co de Phone Number [facility] [address] [facility] [place] [place] [address] * (ABNORMAL) POCT glucose (10/25/2023 9:14 PM TROMPER) Glucose, POC 147(H) 70 - 140 mg/dL Comment: For Glucose values <35 mg/dl when Hematocrit is >60 mg/dl,the test may not accurately detect significant hypoglycemia,and testing in the Laboratory should be considered if clinically indicated. Blood 10/25/2023 9:14 PM TROMPER 10/25/2023 9:14 PM TROMPER Jaqueline Valero MD LAB POCT ORDERABLES - APRIL CE Final Result Performing Organization Address [facility] Co de Phone Number [facility] [facility] [address] [facility] [employer] [place] [address] * (ABNORMAL) POCT glucose (10/25/2023 4:51 PM TROMPER) Glucose, POC 238(H) 70 - 140 mg/dL Comment: For Glucose values <35 mg/dl when Hematocrit is >60 mg/dl,the test may not accurately detect significant hypoglycemia,and testing in the Laboratory should be considered if clinically indicated. Blood 10/25/2023 4:51 PM TROMPER 10/25/2023 4:51 PM TROMPER Jaqueline Valero MD LAB POCT ORDERABLES - APRIL CE Final Result Performing Organization Address [facility] Co de Phone Number [facility] [address] [facility] [employer] [place] [address] * (ABNORMAL) aPTT (10/25/2023 2:48 PM TROMPER) aPTT 72(H) 28 - 38 sec Comment: Interpretive Data Heparin therapeutic range: 66.0 - 100.0 seconds. Range based on correlation with therapeutic heparin activity range of 0.3 - 0.7 Units/mL. Current interpretive data was last revised on 2023. Blood 10/25/2023 2:48 PM TROMPER 10/25/2023 3:04 PM TROMPER Jaqueline Valero MD LAB BLOOD ORDERABLES Final Result Performing Organization Address [facility] de Phone Number [facility] [address] [facility] [place] [place] [address] * (ABNORMAL) POCT glucose (10/25/2023 11:15 AM TROMPER) Glucose, POC 208(H) 70 - 140 mg/dL Comment: For Glucose values <35 mg/dl when Hematocrit is >60 mg/dl,the test may not accurately detect significant hypoglycemia,and testing in the Laboratory should be considered if clinically indicated. Blood 10/25/2023 11:1 5 AM TROMPER 10/25/2023 11:15 AM TROMPER Jaqueline Valero MD LAB POCT ORDERABLES - APRIL CE Final Result Performing Organization Address [facility] Co de Phone Number [facility] [address] [facility] [employer] [place] [address] * POCT glucose (10/25/2023 9:49 AM TROMPER) Glucose, POC 119 70 - 140 mg/dL Comment: For Glucose values <35 mg/dl when Hematocrit is >60 mg/dl,the test may not accurately detect significant hypoglycemia,and testing in the Laboratory should be considered if clinically indicated. Blood 10/25/2023 9:49 AM TROMPER 10/25/2023 9:49 AM TROMPER Jaqueline Valero MD LAB POCT ORDERABLES - APRIL CE Final Result Performing Organization Address [facility] Co de Phone Number [facility] [address] [facility] [place] [place] [address] * POCT glucose (10/25/2023 7:36 AM TROMPER) Glucose, POC 77 70 - 140 mg/dL [facility] Comment: For Glucose values <35 mg/dl when Hematocrit is >60 mg/dl,the test may not accurately detect significant hypoglycemia,and testing in the Laboratory should be considered if clinically indicated. Blood 10/25/2023 7:36 AM TROMPER 10/25/2023 7:36 AM TROMPER Jaqueline Valero MD LAB POCT ORDERABLES - APRIL CE Final Result Performing Organization Address [facility] de Phone Number [facility] [address] [place] [place] [address] * XR Chest 1 View - Portable - in AM (10/25/2023 6:52 AM TROMPER) Anatomical Region Laterality Modality Body, Chest N/A Computed Radiogr aphy 10/25/2023 11:4 3 AM TROMPER Impressions 10/25/2023 1:22 PM TROMPER Comparison made to 10/24/2023. ??Sternal fixation wires [...] Arnoldo Abdul M.D. Narrative 10/25/2023 1:22 PM TROMPER EXAMINATION: XR CHEST 1 VIEW Procedure Note [...] it. Electronically signed by: Arnoldo Abdul M.D. us Byron Olvera RESPIRATORY CARE TECHNICIAN IMG XR PROCEDURES Final Result * (ABNORMAL) aPTT (10/25/2023 6:48 AM TROMPER) aPTT 65(H) 28 - 38 sec [facility] Comment: Interpretive Data Heparin therapeutic range: 66.0 - 100.0 seconds. Range based on correlation with therapeutic heparin activity range of 0.3 - 0.7 Units/mL. Current interpretive data was last revised on 2023. Blood 10/25/2023 6:48 AM TROMPER 10/25/2023 6:58 AM TROMPER us Jaqueline Valero MD LAB BLOOD ORDERABLES Final Result [facility] [address] Department [place] [address] * POCT glucose (10/25/2023 4:23 AM TROMPER) [facility] Glucose, POC 130 70 - 140 mg/dL [facility] Comment: For Glucose values <35 mg/dl when Hematocrit is >60 mg/dl,the test may not accurately detect significant hypoglycemia,and testing in the Laboratory should be considered if clinically indicated. Blood 10/25/2023 4:23 AM TROMPER 10/25/2023 4:23 AM TROMPER us Jaqueline Valero MD LAB POCT ORDERABLES - APRIL CE Final Result Performing Organization Address City/State/[facility] Co de Phone Number [facility] [address] Department [place] [address] * eGFR (10/25/2023 12:34 AM TROMPER) [facility] eGFR 5 mL/min/1. 73 m2 [facility] Comment: Interpretive Data Reference Interval [...] reviewed 2021. Blood 10/25/2023 12:3 4 AM TROMPER 10/25/2023 12:42 AM TROMPER Byron Olvera NP LAB BLOOD ORDERABLES Fi nal Result Performing Organization Address [facility] Co de Phone Number [facility] [address] [facility] [place] [place] [address] * Magnesium (10/25/2023 12:34 AM TROMPER) Pathologist [facility] Magnesium 2.3 1.4 - 2.5 mg/dL [facility] Blood 10/25/2023 12:3 4 AM TROMPER 10/25/2023 12:42 AM TROMPER Byron Olvera NP LAB BLOOD ORDERABLES Fi nal Result Performing Organization Address [facility] de Phone Number [facility] [address] [facility] [place] [place] [address] * (ABNORMAL) Renal function panel (10/25/2023 12:34 AM TROMPER) Sodium 128(L) 135 - 145 mmol/L [facility] Potassium, pl 4.0 3.3 - 4.9 mmol/L [facility] Chloride 86(L) 97 - 110 mmol/L [facility] CO2 21(L) 22 - 32 mmol/L [facility] Anion gap 21(H) 2 - 15 mmol/L [facility] BUN 86(H) 6 - 25 mg/dL [facility] Creatinine 10.57(H) 0.80 - 1.30 mg/dL [facility] Glucose 97 70 - 199 mg/dL [facility] Comment: Interpretive Data Fasting glucose [...] 2022. Calcium 9.0 8.5 - 10.3 mg/dL [facility] Phosphorus, pl 6.5(H) 2.3 - 4.5 mg/dL [facility] Albumin 2.9(L) 3.5 - 5.0 g/dL [facility] Blood 10/25/2023 12:3 4 AM TROMPER 10/25/2023 12:42 AM TROMPER Byron Olvera NP LAB BLOOD ORDERABLES Fi nal Result [facility] [address] Department [place] [address] * (ABNORMAL) CBC without differential (10/25/2023 12:34 AM TROMPER) WBC 8.2 3.8 - 9.9 K/cumm [facility] Hgb 7.8(L) 13.0 - 17.5 g/dL [facility] Hct 24.7(L) 38.9 - 50.3 % [facility] Plt 202 150 - 400 K/cumm [facility] MPV 10.2 9.1 - 12.3 fL [facility] RBC 2.65(L) 4.30 - 5.80 M/cumm [facility] MCV 93.2 81.3 - 96.4 fL [facility] MCH 29.4 27.1 - 33.3 pg [facility] MCHC 31.6(L) 32.3 - 35.7 g/dL [facility] RDW CV 15.9(H) 11.1 - 14.9 % [facility] RDW SD 53.1(H) 35.7 - 48.1 fL [facility] NRBC abs 0.00 0.00 - 0.01 K/cumm [facility] Blood 10/25/2023 12:3 4 AM TROMPER 10/25/2023 12:43 AM TROMPER Byron Olvera NP LAB BLOOD ORDERABLES Fi nal Result Performing Organization Address [facility] Co de Phone Number [facility] [address] Department [place] [address] * (ABNORMAL) Protime-INR (10/25/2023 12:33 AM TROMPER) PT 18.5(H) 10.3 - 13.7 sec [facility] INR 1.62(H) 0.90 - 1.20 [facility] Comment: Interpretive data Oral anticoagulant therapeutic ranges: Venous thromboembolism prophylaxis or treatment: 2.0-3.0 CARDIOLOGY Standard range: 2.0-3.0 High-intensity range: 2.5-3.5 Refer to indication-specific guidelines for appropriate target ranges for prosthetic heart valve replacement. Current interpretive data was last revised on 2019. Blood 10/25/2023 12:3 3 AM TROMPER 10/25/2023 12:40 AM TROMPER Jaqueline Valero MD LAB BLOOD ORDERABLES Final Result Performing Organization Address [facility] Co de Phone Number [facility] [address] Department [place] [address] * (ABNORMAL) aPTT (10/25/2023 12:33 AM TROMPER) aPTT 58(H) 28 - 38 sec [facility] Comment: Interpretive Data Heparin therapeutic range: 66.0 - 100.0 seconds. Range based on correlation with therapeutic heparin activity range of 0.3 - 0.7 Units/mL. Current interpretive data was last revised on 2023. Blood 10/25/2023 12:3 3 AM TROMPER 10/25/2023 12:40 AM TROMPER Jaqueline Valero MD LAB BLOOD ORDERABLES Final Result Performing Organization Address [facility] Co de Phone Number [facility] [address] [facility] [employer] [place], [place] [id number] * POCT glucose (10/24/2023 9:51 PM TROMPER) Glucose, POC 130 70 - 140 mg/dL [facility] Comment: For Glucose values <35 mg/dl when Hematocrit is >60 mg/dl,the test may not accurately detect significant hypoglycemia,and testing in the Laboratory should be considered if clinically indicated. Blood 10/24/2023 9:51 PM TROMPER 10/24/2023 9:51 PM TROMPER Jaqueline Valero MD LAB POCT ORDERABLES - APRIL CE Final Result Performing Organization Address [facility] Co de Phone Number [facility] [address] [facility] [employer] [place], [place] [id number] * (ABNORMAL) aPTT (10/24/2023 5:15 PM TROMPER) aPTT 45(H) 28 - 38 sec [facility] Comment: Interpretive Data Heparin therapeutic range: 66.0 - 100.0 seconds. Range based on correlation with therapeutic heparin activity range of 0.3 - 0.7 Units/mL. Current interpretive data was last revised on 2023. Blood 10/24/2023 5:15 PM TROMPER 10/24/2023 5:15 PM TROMPER us Jaqueline Valero MD LAB BLOOD ORDERABLES Final Result Performing Organization Address [facility] Co de Phone Number [facility] [address] [facility] [employer] [place], [place] [id number] * (ABNORMAL) POCT glucose (10/24/2023 4:42 PM TROMPER) Glucose, POC 149(H) 70 - 140 mg/dL [facility] Comment: For Glucose values <35 mg/dl when Hematocrit is >60 mg/dl,the test may not accurately detect significant hypoglycemia,and testing in the Laboratory should be considered if clinically indicated. Blood 10/24/2023 4:42 PM TROMPER 10/24/2023 4:42 PM TROMPER Jaqueline Valero MD LAB POCT ORDERABLES - APRIL CE Final Result Performing Organization Address [facility] de Phone Number [facility] [address] [place] [address] * POCT glucose (10/24/2023 12:17 PM TROMPER) Glucose, POC 118 70 - 140 mg/dL [facility] Comment: For Glucose values <35 mg/dl when Hematocrit is >60 mg/dl,the test may not accurately detect significant hypoglycemia,and testing in the Laboratory should be considered if clinically indicated. Blood 10/24/2023 12:1 7 PM TROMPER 10/24/2023 12:17 PM TROMPER Jaqueline Valero MD LAB POCT ORDERABLES - APRIL CE Final Result Performing Organization Address [facility] de Phone Number [facility] [address] [place] [address] * (ABNORMAL) POCT glucose (10/24/2023 7:44 AM TROMPER) Glucose, POC 202(H) 70 - 140 mg/dL [facility] Comment: For Glucose values <35 mg/dl when Hematocrit is >60 mg/dl,the test may not accurately detect significant hypoglycemia,and testing in the Laboratory should be considered if clinically indicated. Blood 10/24/2023 7:44 AM TROMPER 10/24/2023 7:44 AM TROMPER Jaqueline Valero MD LAB POCT ORDERABLES - APRIL CE Final Result Performing Organization Address [facility] de Phone Number [facility] [address] [place] [id number] * XR Chest 1 View - Portable - in AM (10/24/2023 5:54 AM TROMPER) Anatomical Region Laterality Modality Body, Chest N/A Computed Radiogr aphy 10/24/2023 10:3 4 AM TROMPER Impressions 10/24/2023 10:34 AM TROMPER Comparison is made to single view chest [...] Tania Malone M.D. Narrative 10/24/2023 10:34 AM TROMPER EXAMINATION: 1 view chest radiograph Procedure Note [...] signed by: Tania Malone M.D. Byron Olvera RESPIRATORY CARE TECHNICIAN IMG XR PROCEDURES Final Result * eGFR (10/24/2023 1:03 AM TROMPER) eGFR 5 mL/min/1. 73 m2 [facility] Comment: Interpretive Data Reference Interval Normal ?>/= [...] last reviewed 2021. Blood 10/24/2023 1:03 AM TROMPER 10/24/2023 1:13 AM TROMPER us Byron Olvera NP LAB BLOOD ORDERABLES Fi nal Result [facility] [address] Department [place] [address] * (ABNORMAL) Protime-INR (10/24/2023 1:03 AM TROMPER) PT 18.2(H) 10.3 - 13.7 sec [facility] INR 1.60(H) 0.90 - 1.20 [facility] Comment: Interpretive data Oral anticoagulant therapeutic ranges: Venous thromboembolism prophylaxis or treatment: 2.0-3.0 CARDIOLOGY Standard range: 2.0-3.0 High-intensity range: 2.5-3.5 Refer to indication-specific guidelines for appropriate target ranges for prosthetic heart valve replacement. Current interpretive data was last revised on 2019. Blood 10/24/2023 1:03 AM TROMPER 10/24/2023 1:13 AM TROMPER Byron Olvera NP LAB BLOOD ORDERABLES Fi nal Result Performing Organization Address City/[facility]/ZIP Co de Phone Number [facility] [address] [place] [place] [address] * Magnesium (10/24/2023 1:03 AM TROMPER) Pathologist [facility] Magnesium 2.2 1.4 - 2.5 mg/dL [facility] Blood 10/24/2023 1:03 AM TROMPER 10/24/2023 1:13 AM TROMPER Byron Rudi Olvera NP LAB BLOOD ORDERABLES Fi nal Result Performing Organization Address [facility] Co de Phone Number [facility] [address] Department [place] [place] [address] * (ABNORMAL) Renal function panel (10/24/2023 1:03 AM TROMPER) Sodium 127(L) 135 - 145 mmol/L [facility] Potassium, pl 4.2 3.3 - 4.9 mmol/L [facility] Chloride 86(L) 97 - 110 mmol/L [facility] CO2 21(L) 22 - 32 mmol/L [facility] Anion gap 20(H) 2 - 15 mmol/L [facility] BUN 90(H) 6 - 25 mg/dL [facility] Creatinine 11.24(H) 0.80 - 1.30 mg/dL [facility] Glucose 143 70 - 199 mg/dL [facility] Comment: Interpretive Data Fasting glucose [...] 2022. Calcium 8.6 8.5 - 10.3 mg/dL [facility] Phosphorus, pl 6.1(H) 2.3 - 4.5 mg/dL [facility] Albumin 2.7(L) 3.5 - 5.0 g/dL [facility] Blood 10/24/2023 1:03 AM TROMPER 10/24/2023 1:13 AM TROMPER Byron Olvera NP LAB BLOOD ORDERABLES Fi nal Result Performing Organization Address City/[facility]/ZIP Co de Phone Number [facility] [address] [employer] [place] [address] * (ABNORMAL) CBC without differential (10/24/2023 1:03 AM TROMPER) WBC 9.3 3.8 - 9.9 K/cumm [facility] Hgb 7.6(L) 13.0 - 17.5 g/dL [facility] Hct 24.4(L) 38.9 - 50.3 % [facility] Plt 184 150 - 400 K/cumm [facility] MPV 10.5 9.1 - 12.3 fL [facility] RBC 2.58(L) 4.30 - 5.80 M/cumm [facility] MCV 94.6 81.3 - 96.4 fL [facility] MCH 29.5 27.1 - 33.3 pg [facility] MCHC 31.1(L) 32.3 - 35.7 g/dL [facility] RDW CV 15.9(H) 11.1 - 14.9 % [facility] RDW SD 53.1(H) 35.7 - 48.1 fL [facility] NRBC abs 0.00 0.00 - 0.01 K/cumm [facility] Blood 10/24/2023 1:03 AM TROMPER 10/24/2023 1:13 AM TROMPER Byron Olvera NP LAB BLOOD ORDERABLES Fi nal Result [facility] [address] [employer] [place], [place] [id number] * POCT glucose (10/23/2023 11:14 PM TROMPER) Glucose, POC 128 70 - 140 mg/dL [facility] Comment: For Glucose values <35 mg/dl when Hematocrit is >60 mg/dl,the test may not accurately detect significant hypoglycemia,and testing in the Laboratory should be considered if clinically indicated. Blood 10/23/2023 11:1 4 PM TROMPER 10/23/2023 11:14 PM TROMPER Jaqueline Valero MD LAB POCT ORDERABLES - APRIL CE Final Result Performing Organization Address [facility] Co de Phone Number [facility] [address] [facility] [employer] [place] [address] * POCT glucose (10/23/2023 10:43 PM TROMPER) Glucose, POC 92 70 - 140 mg/dL [facility] Comment: For Glucose values <35 mg/dl when Hematocrit is >60 mg/dl,the test may not accurately detect significant hypoglycemia,and testing in the Laboratory should be considered if clinically indicated. Blood 10/23/2023 10:4 3 PM TROMPER 10/23/2023 10:43 PM TROMPER Jaqueline Valero MD LAB POCT ORDERABLES - APRIL CE Final Result Performing Organization Address [facility] Co de Phone Number [facility] [address] [facility] [place] [place] [address] * POCT glucose (10/23/2023 5:12 PM TROMPER) Glucose, POC 113 70 - 140 mg/dL [facility] Comment: For Glucose values <35 mg/dl when Hematocrit is >60 mg/dl,the test may not accurately detect significant hypoglycemia,and testing in the Laboratory should be considered if clinically indicated. Blood 10/23/2023 5:12 PM TROMPER 10/23/2023 5:12 PM TROMPER Jaqueline Vaelro MD LAB POCT ORDERABLES - APRIL CE Final Result Performing Organization Address [facility] de Phone Number [facility] [address] [facility] [employer] [place], [place] [id number] * (ABNORMAL) POCT glucose (10/23/2023 12:08 PM TROMPER) Glucose, POC 203(H) 70 - 140 mg/dL [facility] Comment: For Glucose values <35 mg/dl when Hematocrit is >60 mg/dl,the test may not accurately detect significant hypoglycemia,and testing in the Laboratory should be considered if clinically indicated. Blood 10/23/2023 12:0 8 PM TROMPER 10/23/2023 12:08 PM TROMPER Jaqueline Valero MD LAB POCT ORDERABLES - APRIL CE Final Result Performing Organization Address [facility] de Phone Number [facility] [address] [facility] [employer] [place] [address] * (ABNORMAL) POCT glucose (10/23/2023 7:54 AM TROMPER) Glucose, POC 205(H) 70 - 140 mg/dL [facility] Comment: For Glucose values <35 mg/dl when Hematocrit is >60 mg/dl,the test may not accurately detect significant hypoglycemia,and testing in the Laboratory should be considered if clinically indicated. Blood 10/23/2023 7:54 AM TROMPER 10/23/2023 7:54 AM TROMPER Jaqueline Valero MD LAB POCT ORDERABLES - APRIL CE Final Result Performing Organization Address [facility] Co de Phone Number [facility] [address] [facility] [place] [employer] [place] [address] * XR Chest 1 View - Portable - in AM (10/23/2023 6:24 AM TROMPER) Anatomical Region Laterality Modality Body, Chest N/A Computed Radiogr aphy 10/23/2023 7:12 AM TROMPER Impressions 10/23/2023 7:12 AM TROMPER Comparison is made to 10/22/2023. ??There are [...] Manuel Bruno M.D. Narrative 10/23/2023 7:12 AM TROMPER Examination: Chest one view Procedure Note Manuel [...] signed by: Manuel Bruno M.D. Byron Olvera NP IMG XR PROCEDURES Final Result * eGFR (10/23/2023 1:53 AM TROMPER) eGFR 5 mL/min/1. 73 m2 [facility] Comment: Interpretive Data Reference Interval Normal ?>/= [...] last reviewed 2021. Blood 10/23/2023 1:53 AM TROMPER 10/23/2023 2:08 AM TROMPER Byron Olvera NP LAB BLOOD ORDERABLES Fi nal Result Performing Organization Address [facility] de Phone Number [facility] [address] [employer] [place] [address] * (ABNORMAL) Protime-INR (10/23/2023 1:53 AM TROMPER) PT 24.9(H) 10.3 - 13.7 sec [facility] INR 2.18(H) 0.90 - 1.20 [facility] Comment: Interpretive data Oral anticoagulant therapeutic ranges: Venous thromboembolism prophylaxis or treatment: 2.0-3.0 CARDIOLOGY Standard range: 2.0-3.0 High-intensity range: 2.5-3.5 Refer to indication-specific guidelines for appropriate target ranges for prosthetic heart valve replacement. Current interpretive data was last revised on 2019. Blood 10/23/2023 1:53 AM TROMPER 10/23/2023 2:08 AM TROMPER Byron Olvera NP LAB BLOOD ORDERABLES Fi nal Result Performing Organization Address [facility] de Phone Number [facility] [address] Department [place] [address] * Magnesium (10/23/2023 1:53 AM TROMPER) Pathologist [facility] Magnesium 2.4 1.4 - 2.5 mg/dL [facility] Blood 10/23/2023 1:53 AM TROMPER 10/23/2023 2:08 AM TROMPER Byron Olvera NP LAB BLOOD ORDERABLES Fi nal Result [facility] [address] Department [place] [address] * (ABNORMAL) Renal function panel (10/23/2023 1:53 AM TROMPER) Pathologist [facility] Sodium 132(L) 135 - 145 mmol/L [facility] Potassium, pl 4.3 3.3 - 4.9 mmol/L [facility] Chloride 91(L) 97 - 110 mmol/L [facility] CO2 20(L) 22 - 32 mmol/L [facility] Anion gap 21(H) 2 - 15 mmol/L [facility] BUN 91(H) 6 - 25 mg/dL [facility] Creatinine 11.59(H) 0.80 - 1.30 mg/dL [facility] Glucose 176 70 - 199 mg/dL [facility] Comment: Interpretive Data Fasting glucose [...] 2022. Calcium 9.0 8.5 - 10.3 mg/dL [facility] Phosphorus, pl 6.2(H) 2.3 - 4.5 mg/dL [facility] Albumin 2.6(L) 3.5 - 5.0 g/dL [facility] Blood 10/23/2023 1:53 AM TROMPER 10/23/2023 2:08 AM TROMPER Byron Olvera NP LAB BLOOD ORDERABLES Fi nal Result Performing Organization Address [facility] Co de Phone Number [facility] [address] Department [employer] [place], [place] [id number] * (ABNORMAL) CBC without differential (10/23/2023 1:53 AM TROMPER) Pathologist [facility] WBC 11.7(H) 3.8 - 9.9 K/cumm [facility] Hgb 8.5(L) 13.0 - 17.5 g/dL [facility] Hct 27.3(L) 38.9 - 50.3 % [facility] Plt 207 150 - 400 K/cumm [facility] MPV 10.5 9.1 - 12.3 fL [facility] RBC 2.86(L) 4.30 - 5.80 M/cumm [facility] MCV 95.5 81.3 - 96.4 fL [facility] MCH 29.7 27.1 - 33.3 pg [facility] MCHC 31.1(L) 32.3 - 35.7 g/dL [facility] RDW CV 15.9(H) 11.1 - 14.9 % [facility] RDW SD 53.6(H) 35.7 - 48.1 fL [facility] NRBC abs 0.00 0.00 - 0.01 K/cumm [facility] Blood 10/23/2023 1:53 AM TROMPER 10/23/2023 2:08 AM TROMPER Byron Olvera NP LAB BLOOD ORDERABLES Fi nal Result Performing Organization Address [facility] Co de Phone Number [facility] [address] Department [employer] [place], [place] [id number] * (ABNORMAL) POCT glucose (10/22/2023 11:55 PM TROMPER) Glucose, POC 142(H) 70 - 140 mg/dL [facility] Comment: For Glucose values <35 mg/dl when Hematocrit is >60 mg/dl,the test may not accurately detect significant hypoglycemia,and testing in the Laboratory should be considered if clinically indicated. Blood 10/22/2023 11:5 5 PM TROMPER 10/22/2023 11:55 PM TROMPER Result [facility] Jaqueline Valero MD LAB POCT ORDERABLES - APRIL CE Final Result Performing Organization Address [facility] de Phone Number [facility] [address] [facility] [place] [place] [address] * (ABNORMAL) POCT glucose (10/22/2023 9:12 PM TROMPER) Glucose, POC 161(H) 70 - 140 mg/dL [facility] Comment: For Glucose values <35 mg/dl when Hematocrit is >60 mg/dl,the test may not accurately detect significant hypoglycemia,and testing in the Laboratory should be considered if clinically indicated. Blood 10/22/2023 9:12 PM TROMPER 10/22/2023 9:12 PM TROMPER Result [facility] Jaqueline Valero MD LAB POCT ORDERABLES - APRIL CE Final Result Performing Organization Address [facility] de Phone Number [facility] [address] [facility] [place] [place] [address] * POCT glucose (10/22/2023 5:22 PM TROMPER) Glucose, POC 102 70 - 140 mg/dL [facility] Comment: For Glucose values <35 mg/dl when Hematocrit is >60 mg/dl,the test may not accurately detect significant hypoglycemia,and testing in the Laboratory should be considered if clinically indicated. Blood 10/22/2023 5:22 PM TROMPER 10/22/2023 5:22 PM TROMPER Result [facility] Jaqueline Valero MD LAB POCT ORDERABLES - APRIL CE Final Result Performing Organization Address [facility] Co de Phone Number [facility] [address] [facility] [place] [place] [address] * (ABNORMAL) POCT glucose (10/22/2023 12:49 PM TROMPER) Glucose, POC 177(H) 70 - 140 mg/dL [facility] Comment: For Glucose values <35 mg/dl when Hematocrit is >60 mg/dl,the test may not accurately detect significant hypoglycemia,and testing in the Laboratory should be considered if clinically indicated. Blood 10/22/2023 12:4 9 PM TROMPER 10/22/2023 12:49 PM TROMPER Jaqueline Valero MD LAB POCT ORDERABLES - APRIL CE Final Result Performing Organization Address [facility] de Phone Number [facility] [address] [facility] [place] [place] [address] * (ABNORMAL) POCT glucose (10/22/2023 8:12 AM TROMPER) Glucose, POC 158(H) 70 - 140 mg/dL [facility] Comment: For Glucose values <35 mg/dl when Hematocrit is >60 mg/dl,the test may not accurately detect significant hypoglycemia,and testing in the Laboratory should be considered if clinically indicated. Blood 10/22/2023 8:12 AM TROMPER 10/22/2023 8:12 AM TROMPER Jaqueline Valero MD LAB POCT ORDERABLES - APRIL CE Final Result Performing Organization Address [facility] Co de Phone Number [facility] [address] [place] [address] * XR Chest 1 View - Portable - in AM (10/22/2023 6:38 AM TROMPER) Anatomical Region Laterality Modality Body, Chest N/A Computed Radiogr aphy 10/22/2023 8:02 AM TROMPER Impressions 10/22/2023 8:02 AM TROMPER Comparison is made to single view chest radiograph dated 10/21/2023. ??Sternotomy wires and sternal plates are unchanged. Right internal jugular central venous catheter tip overlies the superior vena cava. Persistent small lung volumes with bilateral subsegmental atelectasis. ??Trace left pleural effusion. ??No pneumothorax. Cardiomediastinal silhouette is stable. Electronically signed by: Tania Malone M.D. Narrative 10/22/2023 8:02 AM TROMPER EXAMINATION: 1 view chest radiograph Procedure Note [...] signed by: Tania Malone M.D. Byron Olvera RESPIRATORY CARE TECHNICIAN IMG XR PROCEDURES Final Result * eGFR (10/22/2023 12:31 AM TROMPER) [facility] Signature eGFR 5 mL/min/1. 73 m2 [facility] Comment: Interpretive Data Reference Interval [...] reviewed 2021. Blood 10/22/2023 12:3 1 AM TROMPER 10/22/2023 1:00 AM TROMPER Byron Olvera NP LAB BLOOD ORDERABLES Fi nal Result Performing Organization Address [facility] de Phone Number [facility] [address] [employer] [place] [address] * (ABNORMAL) Protime-INR (10/22/2023 12:31 AM TROMPER) PT 48.4(H) 10.3 - 13.7 sec [facility] INR 4.25(H) 0.90 - 1.20 [facility] Comment: Interpretive data Oral anticoagulant therapeutic ranges: Venous thromboembolism prophylaxis or treatment: 2.0-3.0 CARDIOLOGY Standard range: 2.0-3.0 High-intensity range: 2.5-3.5 Refer to indication-specific guidelines for appropriate target ranges for prosthetic heart valve replacement. Current interpretive data was last revised on 2019. Blood 10/22/2023 12:3 1 AM TROMPER 10/22/2023 1:00 AM TROMPER Byron Olvera NP LAB BLOOD ORDERABLES Fi nal Result Performing Organization Address [facility] Co de Phone Number [facility] [address] [employer] [place], [place] [id number] * Magnesium (10/22/2023 12:31 AM TROMPER) Magnesium 2.4 1.4 - 2.5 mg/dL [facility] Blood 10/22/2023 12:3 1 AM TROMPER 10/22/2023 1:00 AM TROMPER Byron Olvera RESPIRATORY CARE TECHNICIAN LAB BLOOD ORDERABLES Fi nal Result [facility] [address] Department [place] [address] * (ABNORMAL) Renal function panel (10/22/2023 12:31 AM TROMPER) Pathologist [facility] Sodium 134(L) 135 - 145 mmol/L [facility] Potassium, pl 4.3 3.3 - 4.9 mmol/L [facility] Chloride 93(L) 97 - 110 mmol/L [facility] CO2 21(L) 22 - 32 mmol/L [facility] Anion gap 20(H) 2 - 15 mmol/L [facility] BUN 87(H) 6 - 25 mg/dL [facility] Creatinine 11.33(H) 0.80 - 1.30 mg/dL [facility] Glucose 212(H) 70 - 199 mg/dL [facility] Comment: Interpretive Data Fasting glucose [...] 2022. Calcium 8.8 8.5 - 10.3 mg/dL [facility] Phosphorus, pl 7.3(H) 2.3 - 4.5 mg/dL [facility] Albumin 2.8(L) 3.5 - 5.0 g/dL [facility] Blood 10/22/2023 12:3 1 AM TROMPER 10/22/2023 1:00 AM TROMPER Byron Olvera NP LAB BLOOD ORDERABLES Fi nal Result Performing Organization Address [facility]/ZIP Co de Phone Number [facility] [address] [employer] [place] [address] * (ABNORMAL) CBC without differential (10/22/2023 12:31 AM TROMPER) Pathologist [facility] WBC 10.6(H) 3.8 - 9.9 K/cumm [facility] Hgb 8.5(L) 13.0 - 17.5 g/dL [facility] Hct 27.2(L) 38.9 - 50.3 % [facility] Plt 201 150 - 400 K/cumm [facility] MPV 11.2 9.1 - 12.3 fL [facility] RBC 2.88(L) 4.30 - 5.80 M/cumm [facility] MCV 94.4 81.3 - 96.4 fL [facility] MCH 29.5 27.1 - 33.3 pg [facility] MCHC 31.3(L) 32.3 - 35.7 g/dL [facility] RDW CV 15.8(H) 11.1 - 14.9 % [facility] RDW SD 54.0(H) 35.7 - 48.1 fL [facility] NRBC abs 0.02(H) 0.00 - 0.01 K/cumm [facility] Blood 10/22/2023 12:3 1 AM TROMPER 10/22/2023 1:00 AM TROMPER Byron Olvera NP LAB BLOOD ORDERABLES Fi nal Result Performing Organization Address [facility]/ZIP Co de Phone Number [facility] [address] [place] [address] * (ABNORMAL) POCT glucose (10/21/2023 9:31 PM TROMPER) Pathologist [facility] Glucose, POC 249(H) 70 - 140 mg/dL [facility] Comment: For Glucose values <35 mg/dl when Hematocrit is >60 mg/dl,the test may not accurately detect significant hypoglycemia,and testing in the Laboratory should be considered if clinically indicated. Blood 10/21/2023 9:31 PM TROMPER 10/21/2023 9:31 PM TROMPER Jaqueline Valero MD LAB POCT ORDERABLES - APRIL CE Final Result Performing Organization Address [facility] de Phone Number [facility] [address] [facility] [place] [place] [address] * (ABNORMAL) POCT glucose (10/21/2023 5:16 PM TROMPER) Glucose, POC 166(H) 70 - 140 mg/dL [facility] Comment: For Glucose values <35 mg/dl when Hematocrit is >60 mg/dl,the test may not accurately detect significant hypoglycemia,and testing in the Laboratory should be considered if clinically indicated. Blood 10/21/2023 5:16 PM TROMPER 10/21/2023 5:16 PM TROMPER Jaqueline Valero MD LAB POCT ORDERABLES - APRIL CE Final Result Performing Organization Address [facility] de Phone Number [facility] [address] [place] [address] * (ABNORMAL) POCT glucose (10/21/2023 12:29 PM TROMPER) Glucose, POC 266(H) 70 - 140 mg/dL [facility] Comment: For Glucose values <35 mg/dl when Hematocrit is >60 mg/dl,the test may not accurately detect significant hypoglycemia,and testing in the Laboratory should be considered if clinically indicated. Blood 10/21/2023 12:2 9 PM TROMPER 10/21/2023 12:29 PM TROMPER Jaqueline Valero MD LAB POCT ORDERABLES - APRIL CE Final Result Performing Organization Address [facility] Co de Phone Number [facility] [address] Department [place] [address] * (ABNORMAL) POCT glucose (10/21/2023 8:06 AM TROMPER) Glucose, POC 294(H) 70 - 140 mg/dL [facility] Comment: For Glucose values <35 mg/dl when Hematocrit is >60 mg/dl,the test may not accurately detect significant hypoglycemia,and testing in the Laboratory should be considered if clinically indicated. Blood 10/21/2023 8:06 AM TROMPER 10/21/2023 8:06 AM TROMPER us Jaqueline Valero MD LAB POCT ORDERABLES - APRIL CE Final Result [facility] [address] Department [place] [address] * XR Chest 1 View - Portable - in AM (10/21/2023 6:51 AM TROMPER) Anatomical Region Laterality Modality Body, Chest N/A Computed Radiogr aphy 10/21/2023 7:17 AM TROMPER Impressions 10/21/2023 7:17 AM TROMPER Small left effusion and bilateral lower lobe atelectasis. Electronically signed by: Eric Cuevas M.D. Narrative 10/21/2023 7:17 AM TROMPER EXAMINATION: XR CHEST 1 VIEW DATE: 10/21/2023 [...] by: Eric Cuevas M.D. us Byron Olvera RESPIRATORY CARE TECHNICIAN IMG XR PROCEDURES Final Result * ECG 12 lead (10/21/2023 4:39 AM TROMPER) 10/21/2023 4:39 AM TROMPER Narrative [facility] - 10/21/2023 8:34 AM TROMPER Vent Rate: 100 bpm RR Interval: 599 msec [place] Interval: 0 msec QRS Duration: 145 msec QT Interval: 394 msec QTC Interval: 451 msec P-R-T [place]: 0 - -9 - 132 degrees IMPRESSION: NORMAL SINUS RHYTHM [REASON: NORMAL P AXIS, [place], RATE \T\ RHYTHM] LEFT BUNDLE BRANCH BLOCK OCCASIONAL PVC Electronically Signed By: Jesus Huerta MD us Linda Oliva NP ECG ORDERABLES Final Result [facility] [employer] [place] * eGFR (10/21/2023 1:40 AM TROMPER) eGFR 5 mL/min/1. 73 m2 [facility] Comment: Interpretive Data Reference Interval [...] last reviewed 2021. Blood 10/21/2023 1:40 AM TROMPER 10/21/2023 1:59 AM TROMPER Byron Olvera NP LAB BLOOD ORDERABLES Fi nal Result Performing Organization Address [facility] Co de Phone Number [facility] [address] [employer] [place] [address] * (ABNORMAL) Protime-INR (10/21/2023 1:40 AM TROMPER) PT 54.3(H) 10.3 - 13.7 sec [facility] INR 4.76(H) 0.90 - 1.20 [facility] Comment: Interpretive data Oral anticoagulant therapeutic ranges: Venous thromboembolism prophylaxis or treatment: 2.0-3.0 CARDIOLOGY Standard range: 2.0-3.0 High-intensity range: 2.5-3.5 Refer to indication-specific guidelines for appropriate target ranges for prosthetic heart valve replacement. Current interpretive data was last revised on 2019. Blood 10/21/2023 1:40 AM TROMPER 10/21/2023 1:58 AM TROMPER Byron Olvera NP LAB BLOOD ORDERABLES Fi nal Result Performing Organization Address [facility] Co de Phone Number [facility] [address] [employer] [place] [address] * Magnesium (10/21/2023 1:40 AM TROMPER) Magnesium 2.4 1.4 - 2.5 mg/dL [facility] Blood 10/21/2023 1:40 AM TROMPER 10/21/2023 1:59 AM TROMPER Byron Olvera NP LAB BLOOD ORDERABLES Fi nal Result [facility] [address] Department [place] [address] * (ABNORMAL) Renal function panel (10/21/2023 1:40 AM TROMPER) Pathologist [facility] Sodium 134(L) 135 - 145 mmol/L [facility] Potassium, pl 4.5 3.3 - 4.9 mmol/L [facility] Chloride 93(L) 97 - 110 mmol/L [facility] CO2 22 22 - 32 mmol/L [facility] Anion gap 19(H) 2 - 15 mmol/L [facility] BUN 81(H) 6 - 25 mg/dL [facility] Creatinine 11.40(H) 0.80 - 1.30 mg/dL [facility] Glucose 289(H) 70 - 199 mg/dL [facility] Comment: Interpretive Data Fasting glucose [...] 2022. Calcium 8.6 8.5 - 10.3 mg/dL [facility] Phosphorus, pl 8.2(H) 2.3 - 4.5 mg/dL [facility] Albumin 2.7(L) 3.5 - 5.0 g/dL [facility] Blood 10/21/2023 1:40 AM TROMPER 10/21/2023 1:59 AM TROMPER Byron Olvera NP LAB BLOOD ORDERABLES Fi nal Result Performing Organization Address [facility] Co de Phone Number [facility] [address] [place] [address] * (ABNORMAL) CBC without differential (10/21/2023 1:40 AM TROMPER) [facility] WBC 8.2 3.8 - 9.9 K/cumm [facility] Hgb 8.0(L) 13.0 - 17.5 g/dL [facility] Hct 25.6(L) 38.9 - 50.3 % [facility] Plt 185 150 - 400 K/cumm [facility] MPV 11.1 9.1 - 12.3 fL [facility] RBC 2.72(L) 4.30 - 5.80 M/cumm [facility] MCV 94.1 81.3 - 96.4 fL [facility] MCH 29.4 27.1 - 33.3 pg [facility] MCHC 31.3(L) 32.3 - 35.7 g/dL [facility] RDW CV 16.5(H) 11.1 - 14.9 % [facility] RDW SD 55.9(H) 35.7 - 48.1 fL [facility] NRBC abs 0.02(H) 0.00 - 0.01 K/cumm [facility] Blood 10/21/2023 1:40 AM TROMPER 10/21/2023 1:59 AM TROMPER Byron Olvera NP LAB BLOOD ORDERABLES Fi nal Result Performing Organization Address [facility] Co de Phone Number [facility] [address] [place] [address] * (ABNORMAL) POCT glucose (10/20/2023 9:24 PM TROMPER) [facility] Glucose, POC 234(H) 70 - 140 mg/dL [facility] Comment: For Glucose values <35 mg/dl when Hematocrit is >60 mg/dl,the test may not accurately detect significant hypoglycemia,and testing in the Laboratory should be considered if clinically indicated. Blood 10/20/2023 9:24 PM TROMPER 10/20/2023 9:24 PM TROMPER Jaqueline Valero MD LAB POCT ORDERABLES - APRIL CE Final Result Performing Organization Address [facility] Co de Phone Number [facility] [address] [place] [place] [address] * POCT glucose (10/20/2023 5:24 PM TROMPER) [facility] Glucose, POC 89 70 - 140 mg/dL [facility] Comment: For Glucose values <35 mg/dl when Hematocrit is >60 mg/dl,the test may not accurately detect significant hypoglycemia,and testing in the Laboratory should be considered if clinically indicated. Blood 10/20/2023 5:24 PM TROMPER 10/20/2023 5:24 PM TROMPER Jaqueline Valero MD LAB POCT ORDERABLES - APRIL CE Final Result Performing Organization Address [facility] de Phone Number [facility] [address] [place] [place] [address] * Critical Care (10/20/2023 12:45 PM TROMPER) Narrative Kirsten Burns MD - 10/20/2023 12:45 PM TROMPER Byron Olvera NP ? 10/21/2023 10:22 AM Critical Care Performed by: Byron Olvera NP Authorized by: Byron Olvera NP ?? CRITICAL CARE: ??Team: ??[facility] ??Shift: ??AM ??Level of Billing: ??Subsequent [...] plan with the patient's team and other medical/seo consultant staff. This time was in addition to and separate from care provided by other practitioners on this day of service. ?? Byron Olvera RESPIRATORY CARE TECHNICIAN IN CLINIC/BEDSIDE ORDER ROVERTO Final Result * POCT glucose (10/20/2023 11:47 AM TROMPER) Glucose, POC 115 70 - 140 mg/dL [facility] Comment: For Glucose values <35 mg/dl when Hematocrit is >60 mg/dl,the test may not accurately detect significant hypoglycemia,and testing in the Laboratory should be considered if clinically indicated. Blood 10/20/2023 11:4 7 AM TROMPER 10/20/2023 11:47 AM TROMPER Jaquelnie Valero MD LAB POCT ORDERABLES - APRIL CE Final Result Performing Organization Address [facility] Co de Phone Number [facility] [address] [facility] [employer] [place], [place] [id number] * POCT glucose (10/20/2023 10:09 AM TROMPER) Glucose, POC 87 70 - 140 mg/dL [facility] Comment: For Glucose values <35 mg/dl when Hematocrit is >60 mg/dl,the test may not accurately detect significant hypoglycemia,and testing in the Laboratory should be considered if clinically indicated. Blood 10/20/2023 10:0 9 AM TROMPER 10/20/2023 10:09 AM TROMPER Jaqueline Valero MD LAB POCT ORDERABLES - APRIL CE Final Result Performing Organization Address [facility] Co de Phone Number [facility] [address] [facility] [place] [place] [address] * POCT glucose (10/20/2023 9:15 AM TROMPER) Glucose, POC 102 70 - 140 mg/dL [facility] Comment: For Glucose values <35 mg/dl when Hematocrit is >60 mg/dl,the test may not accurately detect significant hypoglycemia,and testing in the Laboratory should be considered if clinically indicated. Blood 10/20/2023 9:15 AM TROMPER 10/20/2023 9:15 AM TROMPER Jaqueline Valero MD LAB POCT ORDERABLES - APRIL CE Final Result Performing Organization Address [facility] Co de Phone Number [facility] [address] Department [place] [address] * POCT glucose (10/20/2023 7:23 AM TROMPER) [facility] Glucose, POC 109 70 - 140 mg/dL [facility] Comment: For Glucose values <35 mg/dl when Hematocrit is >60 mg/dl,the test may not accurately detect significant hypoglycemia,and testing in the Laboratory should be considered if clinically indicated. Blood 10/20/2023 7:23 AM TROMPER 10/20/2023 7:23 AM TROMPER Jaqueline Valero MD LAB POCT ORDERABLES - APRIL CE Final Result Performing Organization Address [facility] de Phone Number [facility] [address] Department [place] [address] * XR Chest 1 View - Portable - in AM (10/20/2023 6:37 AM TROMPER) Anatomical Region Laterality Modality Body, Chest N/A Computed Radiogr aphy 10/20/2023 7:51 AM TROMPER Impressions 10/20/2023 7:51 AM TROMPER Comparison is made to prior chest radiograph(s) [...] Vicki Suh M.D. Narrative 10/20/2023 7:51 AM TROMPER EXAMINATION: XR CHEST 1 VIEW Procedure Note [...] signed by: Vicki Suh M.D. Byron Olvera RESPIRATORY CARE TECHNICIAN IMG XR PROCEDURES Final Result * POCT glucose (10/20/2023 6:12 AM TROMPER) Glucose, POC 119 70 - 140 mg/dL [facility] Comment: For Glucose values <35 mg/dl when Hematocrit is >60 mg/dl,the test may not accurately detect significant hypoglycemia,and testing in the Laboratory should be considered if clinically indicated. Blood 10/20/2023 6:12 AM TROMPER 10/20/2023 6:12 AM TROMPER Result [facility] Jaqueline Valero MD LAB POCT ORDERABLES - APRIL CE Final Result Performing Organization Address [facility] Co de Phone Number [facility] [address] Department [place] [address] * (ABNORMAL) POCT glucose (10/20/2023 3:57 AM TROMPER) Glucose, POC 153(H) 70 - 140 mg/dL [facility] Comment: For Glucose values <35 mg/dl when Hematocrit is >60 mg/dl,the test may not accurately detect significant hypoglycemia,and testing in the Laboratory should be considered if clinically indicated. Blood 10/20/2023 3:57 AM TROMPER 10/20/2023 3:57 AM TROMPER Jaqueline Valero MD LAB POCT ORDERABLES - APRIL CE Final Result Performing Organization Address [facility]/ZIP Co de Phone Number [facility] [address] [place] [address] * Oxyhemoglobin, central venous (10/20/2023 3:22 AM TROMPER) [facility] Oxyhemoglobin, CV 70.0 % [facility] Comment: Interpretive Data No reference range established. Current interpretive data was last revised 2019. Blood 10/20/2023 3:22 AM TROMPER 10/20/2023 3:26 AM TROMPER Gamal Fox RESPIRATORY CARE TECHNICIAN LAB BLOOD ORDERABLES Final Result Performing Organization Address [facility] Co de Phone Number [facility] [address] [place] [address] * (ABNORMAL) aPTT (10/20/2023 3:22 AM TROMPER) [facility] aPTT 114(H) 28 - 38 sec [facility] Comment: Interpretive Data Heparin therapeutic range: 66.0 - 100.0 seconds. Range based on correlation with therapeutic heparin activity range of 0.3 - 0.7 Units/mL. Current interpretive data was last revised on 2023. Blood 10/20/2023 3:22 AM TROMPER 10/20/2023 3:28 AM TROMPER Narrative [facility] - 10/20/2023 4:12 AM TROMPER Draw STAT PTT 6 hrs after initiation of heparin infusion, draw STAT PTT 6 hours after each dose change, and every 6 hours until 2 consecutive PTTs are within therapeutic range. Once two consecutive PTT's are therapeutic (66-100 seconds), then draw PTT every AM until heparin is discontinued. Byron Olvera RESPIRATORY CARE TECHNICIAN LAB BLOOD ORDERABLES Fi nal Result Performing Organization Address City/[facility]/ZIP Co de Phone Number [facility] [address] [facility] [employer] [place] [address] * (ABNORMAL) POCT glucose (10/20/2023 3:21 AM TROMPER) [facility] Glucose, POC 156(H) 70 - 140 mg/dL [facility] Comment: For Glucose values <35 mg/dl when Hematocrit is >60 mg/dl,the test may not accurately detect significant hypoglycemia,and testing in the Laboratory should be considered if clinically indicated. Blood 10/20/2023 3:21 AM TROMPER 10/20/2023 3:21 AM TROMPER Jaqueline Valero MD LAB POCT ORDERABLES - APRIL CE Final Result Performing Organization Address [facility] de Phone Number [facility] [address] [facility] [place] [place] [address] * (ABNORMAL) POCT glucose (10/20/2023 2:10 AM TROMPER) Glucose, POC 164(H) 70 - 140 mg/dL [facility] Comment: For Glucose values <35 mg/dl when Hematocrit is >60 mg/dl,the test may not accurately detect significant hypoglycemia,and testing in the Laboratory should be considered if clinically indicated. Blood 10/20/2023 2:10 AM TROMPER 10/20/2023 2:10 AM TROMPER Result [facility] Jaqueline Valero MD LAB POCT ORDERABLES - APRIL CE Final Result Performing Organization Address [facility] de Phone Number [facility] [address] [facility] [employer] [place] [address] * POCT glucose (10/20/2023 12:57 AM TROMPER) Glucose, POC 119 70 - 140 mg/dL [facility] Comment: For Glucose values <35 mg/dl when Hematocrit is >60 mg/dl,the test may not accurately detect significant hypoglycemia,and testing in the Laboratory should be considered if clinically indicated. Blood 10/20/2023 12:5 7 AM TROMPER 10/20/2023 12:57 AM TROMPER Result [facility] Jaqueline Valero MD LAB POCT ORDERABLES - APRIL CE Final Result Performing Organization Address [facility] Co de Phone Number [facility] [address] Department [place] [address] * eGFR (10/20/2023 12:21 AM TROMPER) Pathologist [facility] eGFR 5 mL/min/1. 73 m2 [facility] Comment: Interpretive Data Reference Interval [...] reviewed 2021. Blood 10/20/2023 12:2 1 AM TROMPER 10/20/2023 12:43 AM TROMPER Dawna Castellanos RESPIRATORY CARE TECHNICIAN LAB BLOOD ORDERABLES Ann Marie l Result Performing Organization Address [facility] Co de Phone Number [facility] [address] Department [place] [address] * Oxyhemoglobin, central venous (10/20/2023 12:21 AM TROMPER) [facility] Oxyhemoglobin, CV 51.0 % [facility] Comment: Interpretive Data No reference range established. Current interpretive data was last revised 2019. Blood 10/20/2023 12:2 1 AM TROMPER 10/20/2023 12:35 AM TROMPER Dawna Castellanos RESPIRATORY CARE TECHNICIAN LAB BLOOD ORDERABLES Ann Marie l Result Performing Organization Address [facility] Co de Phone Number [facility] [address] Department [place] [address] * (ABNORMAL) Protime-INR (10/20/2023 12:21 AM TROMPER) Pathologist [facility] PT 25.5(H) 10.3 - 13.7 sec [facility] INR 2.24(H) 0.90 - 1.20 [facility] Comment: Interpretive data Oral anticoagulant therapeutic ranges: Venous thromboembolism prophylaxis or treatment: 2.0-3.0 CARDIOLOGY Standard range: 2.0-3.0 High-intensity range: 2.5-3.5 Refer to indication-specific guidelines for appropriate target ranges for prosthetic heart valve replacement. Current interpretive data was last revised on 2019. Blood 10/20/2023 12:2 1 AM TROMPER 10/20/2023 12:43 AM TROMPER Byron Olvera RESPIRATORY CARE TECHNICIAN LAB BLOOD ORDERABLES Fi nal Result Performing Organization Address [facility] Co de Phone Number [facility] [address] Department [place] [address] * Magnesium (10/20/2023 12:21 AM TROMPER) Pathologist [facility] Magnesium 2.4 1.4 - 2.5 mg/dL [facility] Blood 10/20/2023 12:2 1 AM TROMPER 10/20/2023 12:43 AM TROMPER Byron Olvera RESPIRATORY CARE TECHNICIAN LAB BLOOD ORDERABLES Fi nal Result Performing Organization Address City/[facility]/ZIP Co de Phone Number [facility] [address] Department [place] [address] * (ABNORMAL) Calcium, ionized (10/20/2023 12:21 AM TROMPER) Pathologist [facility] Calcium, Ionized 4.38(L) 4.50 - 5.10 mg/dL [facility] Blood 10/20/2023 12:2 1 AM TROMPER 10/20/2023 12:35 AM TROMPER Byron Olvera RESPIRATORY CARE TECHNICIAN LAB BLOOD ORDERABLES Fi nal Result Performing Organization Address [facility] Co de Phone Number [facility] [address] [place] [place] [address] * (ABNORMAL) Renal function panel (10/20/2023 12:21 AM TROMPER) [facility] Sodium 137 135 - 145 mmol/L [facility] Potassium, pl 4.4 3.3 - 4.9 mmol/L [facility] Chloride 96(L) 97 - 110 mmol/L [facility] CO2 21(L) 22 - 32 mmol/L [facility] Anion gap 20(H) 2 - 15 mmol/L [facility] BUN 77(H) 6 - 25 mg/dL [facility] Creatinine 11.28(H) 0.80 - 1.30 mg/dL [facility] Glucose 105 70 - 199 mg/dL [facility] Comment: Interpretive Data Fasting glucose [...] 2022. Calcium 8.9 8.5 - 10.3 mg/dL [facility] Phosphorus, pl 8.9(H) 2.3 - 4.5 mg/dL [facility] Albumin 2.8(L) 3.5 - 5.0 g/dL [facility] Blood 10/20/2023 12:2 1 AM TROMPER 10/20/2023 12:43 AM TROMPER Byron Olvera RESPIRATORY CARE TECHNICIAN LAB BLOOD ORDERABLES Fi nal Result Performing Organization Address [facility]/ZIP Co de Phone Number [facility] [address] [employer] [place] [address] * (ABNORMAL) CBC without differential (10/20/2023 12:21 AM TROMPER) WBC 8.8 3.8 - 9.9 K/cumm [facility] Hgb 8.3(L) 13.0 - 17.5 g/dL [facility] Hct 26.2(L) 38.9 - 50.3 % [facility] Plt 149(L) 150 - 400 K/cumm [facility] MPV 11.1 9.1 - 12.3 fL [facility] RBC 2.76(L) 4.30 - 5.80 M/cumm [facility] MCV 94.9 81.3 - 96.4 fL [facility] MCH 30.1 27.1 - 33.3 pg [facility] MCHC 31.7(L) 32.3 - 35.7 g/dL [facility] RDW CV 16.5(H) 11.1 - 14.9 % [facility] RDW SD 56.3(H) 35.7 - 48.1 fL [facility] NRBC abs 0.00 0.00 - 0.01 K/cumm [facility] Blood 10/20/2023 12:2 1 AM TROMPER 10/20/2023 12:43 AM TROMPER Byron Olvera NP LAB BLOOD ORDERABLES Fi nal Result Performing Organization Address City/[facility]/ZIP Co de Phone Number [facility] [address] [place] [address] * POCT glucose (10/20/2023 12:20 AM TROMPER) Glucose, POC 111 70 - 140 mg/dL [facility] Comment: For Glucose values <35 mg/dl when Hematocrit is >60 mg/dl,the test may not accurately detect significant hypoglycemia,and testing in the Laboratory should be considered if clinically indicated. Blood 10/20/2023 12:2 0 AM TROMPER 10/20/2023 12:20 AM TROMPER Jaqueline Valero MD LAB POCT ORDERABLES - APRIL CE Final Result Performing Organization Address [facility] Co de Phone Number [facility] [address] [facility] [place] [place] [address] * POCT glucose (10/19/2023 11:03 PM TROMPER) Glucose, POC 111 70 - 140 mg/dL [facility] Comment: For Glucose values <35 mg/dl when Hematocrit is >60 mg/dl,the test may not accurately detect significant hypoglycemia,and testing in the Laboratory should be considered if clinically indicated. Blood 10/19/2023 11:0 3 PM TROMPER 10/19/2023 11:03 PM TROMPER Jaqueline Valero MD LAB POCT ORDERABLES - APRIL CE Final Result Performing Organization Address [facility] Co de Phone Number [facility] [address] [facility] [employer] [place] [address] * POCT glucose (10/19/2023 10:01 PM TROMPER) Glucose, POC 120 70 - 140 mg/dL [facility] Comment: For Glucose values <35 mg/dl when Hematocrit is >60 mg/dl,the test may not accurately detect significant hypoglycemia,and testing in the Laboratory should be considered if clinically indicated. Blood 10/19/2023 10:0 1 PM TROMPER 10/19/2023 10:01 PM TROMPER Jaqueline Valero MD LAB POCT ORDERABLES - APRIL CE Final Result Performing Organization Address [facility] Co de Phone Number [facility] [address] [place] [address] * (ABNORMAL) aPTT (10/19/2023 9:47 PM TROMPER) aPTT 94(H) 28 - 38 sec [facility] Comment: Interpretive Data Heparin therapeutic range: 66.0 - 100.0 seconds. Range based on correlation with therapeutic heparin activity range of 0.3 - 0.7 Units/mL. Current interpretive data was last revised on 2023. Blood 10/19/2023 9:47 PM TROMPER 10/19/2023 9:54 PM TROMPER Narrative [facility] - 10/19/2023 10:17 PM TROMPER Draw STAT PTT 6 hrs after initiation of heparin infusion, draw STAT PTT 6 hours after each dose change, and every 6 hours until 2 consecutive PTTs are within therapeutic range. Once two consecutive PTT's are therapeutic (66-100 seconds), then draw PTT every AM until heparin is discontinued. Byron Olvera NP LAB BLOOD ORDERABLES Fi nal Result Performing Organization Address [facility] de Phone Number [facility] [address] [place] [place] [address] * (ABNORMAL) POCT glucose (10/19/2023 9:15 PM TROMPER) Glucose, POC 143(H) 70 - 140 mg/dL [facility] Comment: For Glucose values <35 mg/dl when Hematocrit is >60 mg/dl,the test may not accurately detect significant hypoglycemia,and testing in the Laboratory should be considered if clinically indicated. Blood 10/19/2023 9:15 PM TROMPER 10/19/2023 9:15 PM TROMPER Jaqueline Valero MD LAB POCT ORDERABLES - APRIL CE Final Result Performing Organization Address [facility] de Phone Number [facility] [address] [facility] [place] [place] [address] * (ABNORMAL) POCT glucose (10/19/2023 8:12 PM TROMPER) Glucose, POC 156(H) 70 - 140 mg/dL [facility] Comment: For Glucose values <35 mg/dl when Hematocrit is >60 mg/dl,the test may not accurately detect significant hypoglycemia,and testing in the Laboratory should be considered if clinically indicated. Blood 10/19/2023 8:12 PM TROMPER 10/19/2023 8:12 PM TROMPER Jaqueline Valero MD LAB POCT ORDERABLES - APRIL CE Final Result Performing Organization Address [facility] de Phone Number [facility] [address] [facility] [place] [place] [address] * POCT glucose (10/19/2023 6:13 PM TROMPER) Glucose, POC 94 70 - 140 mg/dL [facility] Comment: For Glucose values <35 mg/dl when Hematocrit is >60 mg/dl,the test may not accurately detect significant hypoglycemia,and testing in the Laboratory should be considered if clinically indicated. Blood 10/19/2023 6:13 PM TROMPER 10/19/2023 6:13 PM TROMPER Jaqueline Valero MD LAB POCT ORDERABLES - APRIL CE Final Result Performing Organization Address [facility] de Phone Number [facility] [address] [facility] [place] [place] [address] * POCT glucose (10/19/2023 5:24 PM TROMPER) Glucose, POC 90 70 - 140 mg/dL [facility] Comment: For Glucose values <35 mg/dl when Hematocrit is >60 mg/dl,the test may not accurately detect significant hypoglycemia,and testing in the Laboratory should be considered if clinically indicated. Blood 10/19/2023 5:24 PM TROMPER 10/19/2023 5:24 PM TROMPER us Jaqueline Valero MD LAB POCT ORDERABLES - APRIL CE Final Result [facility] [address] Department [place] [address] * XR Chest 1 View (10/19/2023 4:29 PM TROMPER) Anatomical Region Laterality Modality Body, Chest N/A Computed Radiogr aphy 10/19/2023 4:32 PM TROMPER Impressions 10/19/2023 4:32 PM TROMPER Comparison made to radiograph 10/19/2023. Right internal [...] Trace Barrow M.D. Narrative 10/19/2023 4:32 PM TROMPER EXAMINATION: XR CHEST 1 VIEW HISTORY: ??Chest [...] enlarged. Electronically signed by: Trace Barrow M.D. us Dawna Castellanos RESPIRATORY CARE TECHNICIAN IMG XR PROCEDURES Final R esult * POCT glucose (10/19/2023 4:25 PM TROMPER) Glucose, POC 113 70 - 140 mg/dL [facility] Comment: For Glucose values <35 mg/dl when Hematocrit is >60 mg/dl,the test may not accurately detect significant hypoglycemia,and testing in the Laboratory should be considered if clinically indicated. Blood 10/19/2023 4:25 PM TROMPER 10/19/2023 4:25 PM TROMPER Jaqueline Valero MD LAB POCT ORDERABLES - APRIL CE Final Result Performing Organization Address [facility] Co de Phone Number [facility] [address] Department [place] [address] * ECG 12 lead (10/19/2023 3:21 PM TROMPER) 10/19/2023 3:21 PM TROMPER Narrative [facility] - 10/20/2023 9:37 AM TROMPER Vent Rate: 78 bpm RR Interval: 769 msec [place] Interval: 264 msec QRS Duration: 145 msec QT Interval: 426 msec QTC Interval: 459 msec P-R-T [place]: 47 - -19 - 115 degrees IMPRESSION: PROBABLE SINUS RHYTHM WITH FIRST DEGREE AV BLOCK FREQUENT SUPRAVENTRICULAR PREMATURE COMPLEXES IN A BIGEMINAL PATTERN INTRAVENTRICULAR CONDUCTION DELAY NONSPECIFIC T-WAVE CHANGES ABNORMAL ECG Electronically Signed By: Abelardo Randle MD Dawna Castellanos RESPIRATORY CARE TECHNICIAN ECG ORDERABLES Final Res ult Performing Organization Address [facility] Co de Phone Number [facility] [employer] [place] * XR Kub (10/19/2023 2:49 PM TROMPER) Anatomical Region Laterality Modality Body, Abdomen N/A Computed Radiogr aphy 10/19/2023 3:00 PM TROMPER Impressions 10/19/2023 3:00 PM TROMPER FINDINGS/IMPRESSION: Postsurgical changes in the chest. ??Epicardial pacer wires overlie the abdomen and chest. ??Chest tube/mediastinal drains overlie the abdomen. ??Nguyen catheter superimposes the expected location of the urinary bladder. There is no dilatation of small or large bowel seen, although exam is limited secondary to body habitus. Electronically signed by: Nona Carrillo DO Narrative 10/19/2023 3:00 PM TROMPER EXAM: ??XR KUB, 10/19/2023 1:50 PM HISTORY: [...] Result * (ABNORMAL) aPTT (10/19/2023 2:44 PM TROMPER) aPTT 59(H) 28 - 38 sec [facility] Comment: Interpretive Data Heparin therapeutic range: 66.0 - 100.0 seconds. Range based on correlation with therapeutic heparin activity range of 0.3 - 0.7 Units/mL. Current interpretive data was last revised on 2023. Blood 10/19/2023 2:44 PM TROMPER 10/19/2023 2:48 PM TROMPER Narrative [facility] - 10/19/2023 3:02 PM TROMPER Draw STAT PTT 6 hrs after initiation of heparin infusion, draw STAT PTT 6 hours after each dose change, and every 6 hours until 2 consecutive PTTs are within therapeutic range. Once two consecutive PTT's are therapeutic (66-100 seconds), then draw PTT every AM until heparin is discontinued. us Byron Olvera NP LAB BLOOD ORDERABLES Fi nal Result [facility] [address] Department [place] [place] [address] [phone] * (ABNORMAL) Hepatic function panel (10/19/2023 2:44 PM TROMPER) [facility] Bilirubin, total 0.3 0.1 - 1.2 mg/dL [facility] Bilirubin, direct <0.2 0.1 - 0.3 mg/dL [facility] Protein, pl 5.2(L) 6.5 - 8.5 g/dL [facility] Albumin 3.0(L) 3.5 - 5.0 g/dL [facility] Alk phos 104 40 - 130 Units/L [facility] ALT 9 7 - 55 Units/L [facility] AST 39 10 - 50 Units/L [facility] Blood 10/19/2023 2:44 PM TROMPER 10/19/2023 2:48 PM TROMPER Kirsten Burns MD LAB BLOOD ORDERABLES Fin al Result Performing Organization Address [facility]/ZIP Co de Phone Number [facility] [address] [facility] [place] [employer] [place] [address] * (ABNORMAL) Lipase (10/19/2023 2:44 PM TROMPER) [facility] Lipase 7(L) 10 - 99 Units/L [facility] Blood 10/19/2023 2:44 PM TROMPER 10/19/2023 2:48 PM TROMPER Kirsten Burns MD LAB BLOOD ORDERABLES Fin al Result Performing Organization Address City/[facility]/ZIP Co de Phone Number [facility] [address] [facility] [place] [place] [address] * (ABNORMAL) Amylase (10/19/2023 2:44 PM TROMPER) [facility] Amylase <3(L) 30 - 99 Units/L [facility] Blood 10/19/2023 2:44 PM TROMPER 10/19/2023 2:48 PM TROMPER Kirsten Burns MD LAB BLOOD ORDERABLES Fin al Result Performing Organization Address [facility] Co de Phone Number [facility] [address] [facility] [employer] [place], [place] [id number] * (ABNORMAL) POCT glucose (10/19/2023 2:40 PM TROMPER) Glucose, POC 195(H) 70 - 140 mg/dL [facility] Comment: For Glucose values <35 mg/dl when Hematocrit is >60 mg/dl,the test may not accurately detect significant hypoglycemia,and testing in the Laboratory should be considered if clinically indicated. Blood 10/19/2023 2:40 PM TROMPER 10/19/2023 2:40 PM TROMPER Jaqueline Valero MD LAB POCT ORDERABLES - APRIL CE Final Result Performing Organization Address [facility] de Phone Number [facility] [address] [facility] [place] [employer] [place] [address] * POCT glucose (10/19/2023 12:25 PM TROMPER) Glucose, POC 114 70 - 140 mg/dL [facility] Comment: For Glucose values <35 mg/dl when Hematocrit is >60 mg/dl,the test may not accurately detect significant hypoglycemia,and testing in the Laboratory should be considered if clinically indicated. Blood 10/19/2023 12:2 5 PM TROMPER 10/19/2023 12:25 PM TROMPER Jaqueline Valero MD LAB POCT ORDERABLES - APRIL CE Final Result Performing Organization Address [facility] Co de Phone Number [facility] [address] [facility] [employer] [place], [place] [id number] * POCT glucose (10/19/2023 11:12 AM TROMPER) Glucose, POC 116 70 - 140 mg/dL [facility] Comment: For Glucose values <35 mg/dl when Hematocrit is >60 mg/dl,the test may not accurately detect significant hypoglycemia,and testing in the Laboratory should be considered if clinically indicated. Blood 10/19/2023 11:1 2 AM TROMPER 10/19/2023 11:12 AM TROMPER Jaqueline Valero MD LAB POCT ORDERABLES - APRIL CE Final Result Performing Organization Address [facility] de Phone Number [facility] [address] [place] [address] * (ABNORMAL) POCT glucose (10/19/2023 10:54 AM TROMPER) Glucose, POC 57(L) 70 - 140 mg/dL [facility] Comment: For Glucose values <35 mg/dl when Hematocrit is >60 mg/dl,the test may not accurately detect significant hypoglycemia,and testing in the Laboratory should be considered if clinically indicated. Blood 10/19/2023 10:5 4 AM TROMPER 10/19/2023 10:54 AM TROMPER Jaqueline Valero MD LAB POCT ORDERABLES - APRIL CE Final Result Performing Organization Address [facility] de Phone Number [facility] [address] [place] [address] * POCT glucose (10/19/2023 9:04 AM TROMPER) Glucose, POC 82 70 - 140 mg/dL [facility] Comment: For Glucose values <35 mg/dl when Hematocrit is >60 mg/dl,the test may not accurately detect significant hypoglycemia,and testing in the Laboratory should be considered if clinically indicated. Blood 10/19/2023 9:04 AM TROMPER 10/19/2023 9:04 AM TROMPER Jaqueline Valero MD LAB POCT ORDERABLES - APRIL CE Final Result Performing Organization Address [facility] de Phone Number [facility] [address] [place] [address] * (ABNORMAL) aPTT (10/19/2023 8:58 AM TROMPER) aPTT 46(H) 28 - 38 sec [facility] Comment: Interpretive Data Heparin therapeutic range: 66.0 - 100.0 seconds. Range based on correlation with therapeutic heparin activity range of 0.3 - 0.7 Units/mL. Current interpretive data was last revised on 2023. Blood 10/19/2023 8:58 AM TROMPER 10/19/2023 9:28 AM TROMPER Narrative [facility] - 10/19/2023 9:51 AM TROMPER Draw STAT PTT 6 hrs after initiation of heparin infusion, draw STAT PTT 6 hours after each dose change, and every 6 hours until 2 consecutive PTTs are within therapeutic range. Once two consecutive PTT's are therapeutic (66-100 seconds), then draw PTT every AM until heparin is discontinued. Byron Olvera RESPIRATORY CARE TECHNICIAN LAB BLOOD ORDERABLES Fi nal Result Performing Organization Address [facility]/ZIP Co de Phone Number [facility] [address] [place] [address] * Oxyhemoglobin, central venous (10/19/2023 8:58 AM TROMPER) Pathologist [facility] Oxyhemoglobin, CV 70.1 % [facility] Comment: Interpretive Data No reference range established. Current interpretive data was last revised 2019. Blood 10/19/2023 8:58 AM TROMPER 10/19/2023 9:16 AM TROMPER Narrative [facility] - 10/19/2023 9:17 AM TROMPER While on [facility] Dawna Castellanos RESPIRATORY CARE TECHNICIAN LAB BLOOD ORDERABLES Ann Marie l Result [facility] [address] [place] [address] * (ABNORMAL) POCT glucose (10/19/2023 7:19 AM TROMPER) Glucose, POC 150(H) 70 - 140 mg/dL [facility] Comment: For Glucose values <35 mg/dl when Hematocrit is >60 mg/dl,the test may not accurately detect significant hypoglycemia,and testing in the Laboratory should be considered if clinically indicated. Blood 10/19/2023 7:19 AM TROMPER 10/19/2023 7:19 AM TROMPER Jaqueline Valero MD LAB POCT ORDERABLES - APRIL CE Final Result Performing Organization Address [facility] Co de Phone Number [facility] [address] Department [employer] [place], [place] [id number] * Lactate (10/19/2023 7:09 AM TROMPER) [facility] Lactate 1.4 0.7 - 2.0 mmol/L [facility] Blood 10/19/2023 7:09 AM TROMPER 10/19/2023 7:22 AM TROMPER Dawna Castellanos RESPIRATORY CARE TECHNICIAN LAB BLOOD ORDERABLES Ann Marie l Result Performing Organization Address [facility] Co de Phone Number [facility] [address] [place] [place] [address] * Oxyhemoglobin, central venous (10/19/2023 7:09 AM TROMPER) [facility] Oxyhemoglobin, CV 96.5 % [facility] Comment: Interpretive Data No reference range established. Current interpretive data was last revised 2019. Blood 10/19/2023 7:09 AM TROMPER 10/19/2023 7:22 AM TROMPER Narrative [facility] - 10/19/2023 7:24 AM TROMPER While on [facility] Dawna Castellanos RESPIRATORY CARE TECHNICIAN LAB BLOOD ORDERABLES Ann Marie l Result Performing Organization Address [facility] Co de Phone Number [facility] [address] [place] [place] [address] * Critical Care (10/19/2023 6:57 AM TROMPER) Narrative Kirsten Burns MD - 10/19/2023 6:57 AM TROMPER Dawna Castellanos NP ? 10/19/2023 ??2:12 PM Critical Care Performed by: Dawna Castellanos NP Authorized by: Dawna Castellanos NP ?? CRITICAL CARE: ??Team: ??[facility] CT ??Shift: ??AM ??Level of Billing: ??Critical [...] plan with the ICU team and other medical/seo consultant staff, making frequent assessments and decisions [...] from bedside monitors, laboratory results, and imaging us Dawna Castellanos NP IN CLINIC/BEDSIDE ORDERAB LES Final Result * (ABNORMAL) POCT glucose (10/19/2023 6:57 AM TROMPER) [facility] Signature Glucose, POC 147(H) 70 - 140 mg/dL [facility] Comment: For Glucose values <35 mg/dl when Hematocrit is >60 mg/dl,the test may not accurately detect significant hypoglycemia,and testing in the Laboratory should be considered if clinically indicated. Blood 10/19/2023 6:57 AM TROMPER 10/19/2023 6:57 AM TROMPER Jaqueline Valero MD LAB POCT ORDERABLES - APRIL CE Final Result [facility] [address] Department [place] [address] * XR Chest 1 View - Portable - in AM (10/19/2023 6:27 AM TROMPER) Anatomical Region Laterality Modality Body, Chest N/A Computed Radiogr aphy 10/19/2023 7:36 AM TROMPER Impressions 10/19/2023 7:36 AM TROMPER Comparison is made to 10/10/2023. ??Right internal jugular catheter tip overlies the superior vena cava, unchanged in position. ??The [place]-Daniel catheter has been removed. ??Sternotomy wires and [...] John Bruno M.D. Narrative 10/19/2023 7:36 AM TROMPER EXAMINATION: Chest 1 view frontal HISTORY: Shortness of breath Procedure Note John Bruno MD - 10/19/2023 EXAMINATION: Chest 1 view frontal HISTORY: Shortness of breath IMPRESSION: Comparison is made to 10/10/2023. Right internal jugular catheter tip overlies the superior vena cava, unchanged in position. The [place]Daniel catheter has been removed. Sternotomy wires and [...] * (ABNORMAL) POCT glucose (10/19/2023 6:06 AM TROMPER) Glucose, POC 163(H) 70 - 140 mg/dL [facility] Comment: For Glucose values <35 mg/dl when Hematocrit is >60 mg/dl,the test may not accurately detect significant hypoglycemia,and testing in the Laboratory should be considered if clinically indicated. Blood 10/19/2023 6:06 AM TROMPER 10/19/2023 6:06 AM TROMPER Jaqueline Valero MD LAB POCT ORDERABLES - APRIL CE Final Result Performing Organization Address [facility] Co de Phone Number [facility] [address] [facility] [employer] [place], [place] [phone] * (ABNORMAL) POCT glucose (10/19/2023 5:10 AM TROMPER) Glucose, POC 191(H) 70 - 140 mg/dL [facility] Comment: For Glucose values <35 mg/dl when Hematocrit is >60 mg/dl,the test may not accurately detect significant hypoglycemia,and testing in the Laboratory should be considered if clinically indicated. Blood 10/19/2023 5:10 AM TROMPER 10/19/2023 5:10 AM TROMPER Jaqueline Valero MD LAB POCT ORDERABLES - APRIL CE Final Result Performing Organization Address [facility] de Phone Number [facility] [address] [facility] [place] [address] * (ABNORMAL) aPTT (10/19/2023 4:14 AM TROMPER) aPTT 50(H) 28 - 38 sec [facility] Comment: Interpretive Data Heparin therapeutic range: 66.0 - 100.0 seconds. Range based on correlation with therapeutic heparin activity range of 0.3 - 0.7 Units/mL. Current interpretive data was last revised on 2023. Blood 10/19/2023 4:14 AM TROMPER 10/19/2023 4:27 AM TROMPER Narrative [facility] - 10/19/2023 5:01 AM TROMPER Draw STAT PTT 6 hrs after initiation of heparin infusion, draw STAT PTT 6 hours after each dose change, and every 6 hours until 2 consecutive PTTs are within therapeutic range. Once two consecutive PTT's are therapeutic (46-70 seconds), then draw PTT every AM until heparin is discontinued. Jaqueline Valero MD LAB BLOOD ORDERABLES Final Result Performing Organization Address [facility] de Phone Number [facility] [address] [facility] [place] [place] [address] * (ABNORMAL) POCT glucose (10/19/2023 4:03 AM TROMPER) Glucose, POC 175(H) 70 - 140 mg/dL [facility] Comment: For Glucose values <35 mg/dl when Hematocrit is >60 mg/dl,the test may not accurately detect significant hypoglycemia,and testing in the Laboratory should be considered if clinically indicated. Blood 10/19/2023 4:03 AM TROMPER 10/19/2023 4:03 AM TROMPER Jaqueline Valero MD LAB POCT ORDERABLES - APRIL CE Final Result Performing Organization Address [facility] de Phone Number [facility] [address] [facility] [place] [place] [address] * (ABNORMAL) POCT glucose (10/19/2023 2:56 AM TROMPER) Glucose, POC 177(H) 70 - 140 mg/dL [facility] Comment: For Glucose values <35 mg/dl when Hematocrit is >60 mg/dl,the test may not accurately detect significant hypoglycemia,and testing in the Laboratory should be considered if clinically indicated. Blood 10/19/2023 2:56 AM TROMPER 10/19/2023 2:56 AM TROMPER Result [facility] Jaqueline Valero MD LAB POCT ORDERABLES - APRIL CE Final Result Performing Organization Address [facility]/ZIP Co de Phone Number [facility] [address] Department [place] [address] * eGFR (10/19/2023 2:11 AM TROMPER) eGFR 5 mL/min/1. 73 m2 [facility] Comment: Interpretive Data Reference Interval [...] data was last reviewed 2021. Blood 10/19/2023 2:11 AM TROMPER 10/19/2023 2:23 AM TROMPER Dawna Castellanos RESPIRATORY CARE TECHNICIAN LAB BLOOD ORDERABLES Ann Marie l Result Performing Organization Address [facility]/ZIP Co de Phone Number [facility] [address] Department [place] [address] * (ABNORMAL) Blood gas, arterial (10/19/2023 2:11 AM TROMPER) Pathologist [facility] pH, Art 7.28(L) 7.35 - 7.45 [facility] PCO2, Arterial 44 35 - 45 mmHg [facility] PO2, Arterial 130(H) 83 - 108 mmHg [facility] HCO3 Art (Calculated) 21 20 - 30 mmol/L [facility] BE, art -6 mmol/L [facility] Comment: Interpretive Data No Reference Range Established Current Interpretive Data was last revised on 2017 O2 Sat Art (Calculated) 99(H) 94 - 98 % [facility] Blood 10/19/2023 2:11 AM TROMPER 10/19/2023 2:15 AM TROMPER Gamal Fox RESPIRATORY CARE TECHNICIAN LAB BLOOD ORDERABLES Final Result Performing Organization Address [facility] Co de Phone Number [facility] [address] Department of [employer] [place], [place] [phone] * Oxyhemoglobin, central venous (10/19/2023 2:11 AM TROMPER) [facility] Oxyhemoglobin, CV 79.0 % [facility] Comment: Interpretive Data No reference range established. Current interpretive data was last revised 2019. Blood 10/19/2023 2:11 AM TROMPER 10/19/2023 2:15 AM TROMPER Dawna Castellanos RESPIRATORY CARE TECHNICIAN LAB BLOOD ORDERABLES Ann Maire l Result Performing Organization Address [facility]/ZIP Co de Phone Number [facility] [address] [place] [address] * Protime-INR (10/19/2023 2:11 AM TROMPER) [facility] PT 12.8 10.3 - 13.7 sec [facility] INR 1.12 0.90 - 1.20 [facility] Comment: Interpretive data Oral anticoagulant therapeutic ranges: Venous thromboembolism prophylaxis or treatment: 2.0-3.0 CARDIOLOGY Standard range: 2.0-3.0 High-intensity range: 2.5-3.5 Refer to indication-specific guidelines for appropriate target ranges for prosthetic heart valve replacement. Current interpretive data was last revised on 2019. Blood 10/19/2023 2:11 AM TROMPER 10/19/2023 2:23 AM TROMPER Byron Olvera NP LAB BLOOD ORDERABLES Fi nal Result Performing Organization Address [facility] Co de Phone Number [facility] [address] [facility] [employer] [place], [place] [phone] * Magnesium (10/19/2023 2:11 AM TROMPER) Magnesium 2.5 1.4 - 2.5 mg/dL [facility] Blood 10/19/2023 2:11 AM TROMPER 10/19/2023 2:23 AM TROMPER Byron Olvera NP LAB BLOOD ORDERABLES Fi nal Result Performing Organization Address [facility] Co de Phone Number [facility] [address] [facility] [place] [address] * Calcium, ionized (10/19/2023 2:11 AM TROMPER) Pathologist [facility] Calcium, Ionized 4.69 4.50 - 5.10 mg/dL [facility] Blood 10/19/2023 2:11 AM TROMPER 10/19/2023 2:15 AM TROMPER Byron Olvera NP LAB BLOOD ORDERABLES Fi nal Result Performing Organization Address [facility] Co de Phone Number [facility] [address] [facility] [employer] [place], [place] [phone] * (ABNORMAL) Renal function panel (10/19/2023 2:11 AM TROMPER) Sodium 138 135 - 145 mmol/L [facility] Potassium, pl 4.4 3.3 - 4.9 mmol/L [facility] Chloride 97 97 - 110 mmol/L [facility] CO2 21(L) 22 - 32 mmol/L [facility] Anion gap 20(H) 2 - 15 mmol/L [facility] BUN 74(H) 6 - 25 mg/dL [facility] Creatinine 10.85(H) 0.80 - 1.30 mg/dL [facility] Glucose 188 70 - 199 mg/dL [facility] Comment: Interpretive Data Fasting glucose [...] 2022. Calcium 9.0 8.5 - 10.3 mg/dL [facility] Phosphorus, pl 8.3(H) 2.3 - 4.5 mg/dL [facility] Albumin 3.1(L) 3.5 - 5.0 g/dL [facility] Blood 10/19/2023 2:11 AM TROMPER 10/19/2023 2:23 AM TROMPER us Byron Olvera NP LAB BLOOD ORDERABLES Fi nal Result [facility] [address] Department [place] [address] * (ABNORMAL) CBC without differential (10/19/2023 2:11 AM TROMPER) WBC 8.9 3.8 - 9.9 K/cumm [facility] Hgb 8.7(L) 13.0 - 17.5 g/dL [facility] Hct 27.4(L) 38.9 - 50.3 % [facility] Plt 157 150 - 400 K/cumm [facility] MPV 11.0 9.1 - 12.3 fL [facility] RBC 2.91(L) 4.30 - 5.80 M/cumm [facility] MCV 94.2 81.3 - 96.4 fL [facility] MCH 29.9 27.1 - 33.3 pg [facility] MCHC 31.8(L) 32.3 - 35.7 g/dL [facility] RDW CV 16.4(H) 11.1 - 14.9 % [facility] RDW SD 55.0(H) 35.7 - 48.1 fL [facility] NRBC abs 0.00 0.00 - 0.01 K/cumm [facility] Blood 10/19/2023 2:11 AM TROMPER 10/19/2023 2:23 AM TROMPER Byron Olvera RESPIRATORY CARE TECHNICIAN LAB BLOOD ORDERABLES Fi nal Result Performing Organization Address [facility]/ZIP Co de Phone Number [facility] [address] [place] [address] * (ABNORMAL) POCT glucose (10/19/2023 2:07 AM TROMPER) Glucose, POC 171(H) 70 - 140 mg/dL [facility] Comment: For Glucose values <35 mg/dl when Hematocrit is >60 mg/dl,the test may not accurately detect significant hypoglycemia,and testing in the Laboratory should be considered if clinically indicated. Blood 10/19/2023 2:07 AM TROMPER 10/19/2023 2:07 AM TROMPER Jaqueline Valero MD LAB POCT ORDERABLES - APRIL CE Final Result Performing Organization Address City/[facility]/ZIP Co de Phone Number [facility] [address] [facility] [place] [address] * (ABNORMAL) POCT glucose (10/19/2023 12:01 AM TROMPER) Glucose, POC 144(H) 70 - 140 mg/dL [facility] Comment: For Glucose values <35 mg/dl when Hematocrit is >60 mg/dl,the test may not accurately detect significant hypoglycemia,and testing in the Laboratory should be considered if clinically indicated. Blood 10/19/2023 12:0 1 AM TROMPER 10/19/2023 12:01 AM TROMPER Jaqueline Valero MD LAB POCT ORDERABLES - APRIL CE Final Result Performing Organization Address [facility] Co de Phone Number [facility] [address] [place] [address] * POCT glucose (10/18/2023 11:03 PM TROMPER) Glucose, POC 106 70 - 140 mg/dL [facility] Comment: For Glucose values <35 mg/dl when Hematocrit is >60 mg/dl,the test may not accurately detect significant hypoglycemia,and testing in the Laboratory should be considered if clinically indicated. Blood 10/18/2023 11:0 3 PM TROMPER 10/18/2023 11:03 PM TROMPER Result [facility] Jaqueline Valero MD LAB POCT ORDERABLES - APRIL CE Final Result Performing Organization Address [facility] Co de Phone Number [facility] [address] [place] [address] * POCT glucose (10/18/2023 10:11 PM TROMPER) Glucose, POC 114 70 - 140 mg/dL [facility] Comment: For Glucose values <35 mg/dl when Hematocrit is >60 mg/dl,the test may not accurately detect significant hypoglycemia,and testing in the Laboratory should be considered if clinically indicated. Blood 10/18/2023 10:1 1 PM TROMPER 10/18/2023 10:11 PM TROMPER Jaqueline Valero MD LAB POCT ORDERABLES - APRIL CE Final Result Performing Organization Address [facility] Co de Phone Number [facility] [address] [place] [address] * (ABNORMAL) aPTT (10/18/2023 9:21 PM TROMPER) aPTT 43(H) 28 - 38 sec [facility] Comment: Interpretive Data Heparin therapeutic range: 66.0 - 100.0 seconds. Range based on correlation with therapeutic heparin activity range of 0.3 - 0.7 Units/mL. Current interpretive data was last revised on 2023. Blood 10/18/2023 9:21 PM TROMPER 10/18/2023 9:25 PM TROMPER Narrative [facility] - 10/18/2023 9:42 PM TROMPER Draw STAT PTT 6 hrs after initiation of heparin infusion, draw STAT PTT 6 hours after each dose change, and every 6 hours until 2 consecutive PTTs are within therapeutic range. Once two consecutive PTT's are therapeutic (46-70 seconds), then draw PTT every AM until heparin is discontinued. Jaqueline Valero MD LAB BLOOD ORDERABLES Final Result Performing Organization Address City/[facility]/ZIP Co de Phone Number [facility] [address] [employer] [place], [place] [phone] * POCT glucose (10/18/2023 9:19 PM TROMPER) [facility] Glucose, POC 120 70 - 140 mg/dL [facility] Comment: For Glucose values <35 mg/dl when Hematocrit is >60 mg/dl,the test may not accurately detect significant hypoglycemia,and testing in the Laboratory should be considered if clinically indicated. Blood 10/18/2023 9:19 PM TROMPER 10/18/2023 9:19 PM TROMPER Jaqueline Valero MD LAB POCT ORDERABLES - APRIL CE Final Result [facility] [address] [employer] [place], [place] [phone] * POCT glucose (10/18/2023 8:37 PM TROMPER) Pathologist [facility] Glucose, POC 120 70 - 140 mg/dL [facility] Comment: For Glucose values <35 mg/dl when Hematocrit is >60 mg/dl,the test may not accurately detect significant hypoglycemia,and testing in the Laboratory should be considered if clinically indicated. Blood 10/18/2023 8:37 PM TROMPER 10/18/2023 8:37 PM TROMPER Jaqueline Valero MD LAB POCT ORDERABLES - APRIL CE Final Result Performing Organization Address [facility] Co de Phone Number [facility] [address] Department [place] [address] * (ABNORMAL) Blood gas, arterial (10/18/2023 8:34 PM TROMPER) pH, Art 7.27(L) 7.35 - 7.45 [facility] PCO2, Arterial 46(H) 35 - 45 mmHg [facility] PO2, Arterial 88 83 - 108 mmHg [facility] HCO3 Art (Calculated) 21 20 - 30 mmol/L [facility] BE, art -6 mmol/L [facility] Comment: Interpretive Data No Reference Range Established Current Interpretive Data was last revised on 2017 O2 Sat Art (Calculated) 95 94 - 98 % [facility] Blood 10/18/2023 8:34 PM TROMPER 10/18/2023 8:40 PM TROMPER Result [facility] Gamal Fox NP LAB BLOOD ORDERABLES Final Result Performing Organization Address [facility] Co de Phone Number [facility] [address] Department [place] [address] * Critical Care (10/18/2023 6:49 PM TROMPER) Narrative Kirsten Burns MD - 10/18/2023 6:49 PM TROMPER Gamal Fox NP ? 10/19/2023 ??3:18 AM Critical Care Performed by: Gamal Fox NP Authorized by: Gamal Fox NP ?? CRITICAL CARE: ??Team: ??[facility] CT ??Shift: ??PM ??Level of Billing: ??Critical [...] plan with the ICU team and other medical/seo consultant staff, making frequent assessments and decisions [...] patient with consultants and the medical staff Gamal Fox NP IN CLINIC/BEDSIDE ORDERABL ES Final Result * POCT glucose (10/18/2023 6:38 PM TROMPER) Glucose, POC 135 70 - 140 mg/dL [facility] Comment: For Glucose values <35 mg/dl when Hematocrit is >60 mg/dl,the test may not accurately detect significant hypoglycemia,and testing in the Laboratory should be considered if clinically indicated. Blood 10/18/2023 6:38 PM TROMPER 10/18/2023 6:38 PM TROMPER Jaqueline Valero MD LAB POCT ORDERABLES - APRIL CE Final Result [facility] [address] [place] [address] * POCT glucose (10/18/2023 5:45 PM TROMPER) Glucose, POC 132 70 - 140 mg/dL [facility] Comment: For Glucose values <35 mg/dl when Hematocrit is >60 mg/dl,the test may not accurately detect significant hypoglycemia,and testing in the Laboratory should be considered if clinically indicated. Blood 10/18/2023 5:45 PM TROMPER 10/18/2023 5:45 PM TROMPER us Jaqueline Valero MD LAB POCT ORDERABLES - APRIL CE Final Result [facility] [address] Department [place] [address] * XR Kub (10/18/2023 5:42 PM TROMPER) Anatomical Region Laterality Modality Body, Abdomen N/A Computed Radiogr aphy 10/18/2023 5:50 PM TROMPER Impressions 10/18/2023 5:50 PM TROMPER FINDINGS/IMPRESSION: ?? Apically oriented left-sided chest tubes and mediastinal drains. Overall paucity of gas distended bowel loops within the abdomen and pelvis. ??No visualized dilated bowel loops. ??No large volume of intraperitoneal free air, although evaluation is limited with supine positioning. ??A Nguyen catheter temperature probe is present. ??No acute osseous abnormality. Electronically signed by: Camilo Cheatham MD Narrative 10/18/2023 5:50 PM TROMPER EXAMINATION: XR KUB HISTORY: Nausa vomiting VIEWS: [...] Result * POCT glucose (10/18/2023 4:47 PM TROMPER) Glucose, POC 138 70 - 140 mg/dL [facility] Comment: For Glucose values <35 mg/dl when Hematocrit is >60 mg/dl,the test may not accurately detect significant hypoglycemia,and testing in the Laboratory should be considered if clinically indicated. Blood 10/18/2023 4:47 PM TROMPER 10/18/2023 4:47 PM TROMPER Jaqueline Valero MD LAB POCT ORDERABLES - APRIL CE Final Result Performing Organization Address [facility] de Phone Number [facility] [address] [facility] [place] [address] * aPTT (10/18/2023 2:55 PM TROMPER) [facility] Signature aPTT 38 28 - 38 sec [facility] Comment: Interpretive Data Heparin therapeutic range: 66.0 - 100.0 seconds. Range based on correlation with therapeutic heparin activity range of 0.3 - 0.7 Units/mL. Current interpretive data was last revised on 2023. Blood 10/18/2023 2:55 PM TROMPER 10/18/2023 3:16 PM TROMPER Result [facility] Jaqueline Valero MD LAB BLOOD ORDERABLES Final Result Performing Organization Address [facility] de Phone Number [facility] [address] [facility] [place] [place] [address] * POCT glucose (10/18/2023 2:52 PM TROMPER) Glucose, POC 104 70 - 140 mg/dL [facility] Comment: For Glucose values <35 mg/dl when Hematocrit is >60 mg/dl,the test may not accurately detect significant hypoglycemia,and testing in the Laboratory should be considered if clinically indicated. Blood 10/18/2023 2:52 PM TROMPER 10/18/2023 2:52 PM TROMPER Result [facility] Jaqueline Valero MD LAB POCT ORDERABLES - APRIL CE Final Result Performing Organization Address [facility] Co de Phone Number [facility] [address] [facility] [employer] [place] [address] * POCT glucose (10/18/2023 1:53 PM TROMPER) Glucose, POC 87 70 - 140 mg/dL [facility] Comment: For Glucose values <35 mg/dl when Hematocrit is >60 mg/dl,the test may not accurately detect significant hypoglycemia,and testing in the Laboratory should be considered if clinically indicated. Blood 10/18/2023 1:53 PM TROMPER 10/18/2023 1:53 PM TROMPER Jaqueline Valero MD LAB POCT ORDERABLES - APRIL CE Final Result Performing Organization Address [facility] Co de Phone Number [facility] [address] [facility] [place] [place] [address] * POCT glucose (10/18/2023 12:48 PM TROMPER) Glucose, POC 83 70 - 140 mg/dL [facility] Comment: For Glucose values <35 mg/dl when Hematocrit is >60 mg/dl,the test may not accurately detect significant hypoglycemia,and testing in the Laboratory should be considered if clinically indicated. Blood 10/18/2023 12:4 8 PM TROMPER 10/18/2023 12:48 PM TROMPER Jaqueline Valero MD LAB POCT ORDERABLES - APRIL CE Final Result Performing Organization Address [facility] Co de Phone Number [facility] [address] [place] [address] * POCT glucose (10/18/2023 12:00 PM TROMPER) Glucose, POC 81 70 - 140 mg/dL [facility] Comment: For Glucose values <35 mg/dl when Hematocrit is >60 mg/dl,the test may not accurately detect significant hypoglycemia,and testing in the Laboratory should be considered if clinically indicated. Blood 10/18/2023 12:0 0 PM TROMPER 10/18/2023 12:00 PM TROMPER Jaqueline Valero MD LAB POCT ORDERABLES - APRIL CE Final Result Performing Organization Address [facility] Co de Phone Number [facility] [address] [facility] [place] [place] [address] * POCT glucose (10/18/2023 10:57 AM TROMPER) Glucose, POC 76 70 - 140 mg/dL [facility] Comment: For Glucose values <35 mg/dl when Hematocrit is >60 mg/dl,the test may not accurately detect significant hypoglycemia,and testing in the Laboratory should be considered if clinically indicated. Blood 10/18/2023 10:5 7 AM TROMPER 10/18/2023 10:57 AM TROMPER Result [facility] Jaqueline Valero MD LAB POCT ORDERABLES - APRIL CE Final Result Performing Organization Address [facility] de Phone Number [facility] [address] [facility] [employer] [place] [address] * POCT glucose (10/18/2023 9:52 AM TROMPER) Glucose, POC 92 70 - 140 mg/dL [facility] Comment: For Glucose values <35 mg/dl when Hematocrit is >60 mg/dl,the test may not accurately detect significant hypoglycemia,and testing in the Laboratory should be considered if clinically indicated. Blood 10/18/2023 9:52 AM TROMPER 10/18/2023 9:52 AM TROMPER Result [facility] Jaqueline Valero MD LAB POCT ORDERABLES - APRIL CE Final Result Performing Organization Address [facility] Co de Phone Number [facility] [address] [facility] [place] [place] [address] * POCT glucose (10/18/2023 8:46 AM TROMPER) Glucose, POC 115 70 - 140 mg/dL [facility] Comment: For Glucose values <35 mg/dl when Hematocrit is >60 mg/dl,the test may not accurately detect significant hypoglycemia,and testing in the Laboratory should be considered if clinically indicated. Blood 10/18/2023 8:46 AM TROMPER 10/18/2023 8:46 AM TROMPER Jaqueline Valero MD LAB POCT ORDERABLES - APRIL CE Final Result Performing Organization Address [facility] de Phone Number [facility] [address] Department [place] [address] * POCT glucose (10/18/2023 7:58 AM TROMPER) Glucose, POC 130 70 - 140 mg/dL [facility] Comment: For Glucose values <35 mg/dl when Hematocrit is >60 mg/dl,the test may not accurately detect significant hypoglycemia,and testing in the Laboratory should be considered if clinically indicated. Blood 10/18/2023 7:58 AM TROMPER 10/18/2023 7:58 AM TROMPER Jaqueline Valero MD LAB POCT ORDERABLES - APRIL CE Final Result Performing Organization Address [facility] de Phone Number [facility] [address] [place] [place] [address] * Critical Care (10/18/2023 7:27 AM TROMPER) Narrative Kirsten Burns MD - 10/18/2023 7:27 AM TROMPER Dawna Castellanos NP ? 10/18/2023 ??2:29 PM Critical Care Performed by: Dawna Castellanos NP Authorized by: Dawna Castellanos NP ?? CRITICAL CARE: ??Team: ??[facility] ??Shift: ??AM ??Level of Billing: ??Critical [...] plan with the ICU team and other medical/seo consultant staff, making frequent assessments and decisions [...] from bedside monitors, laboratory results, and imaging us Dawna Castellanos NP IN CLINIC/BEDSIDE ORDERAB LES Final Result * (ABNORMAL) POCT glucose (10/18/2023 7:02 AM TROMPER) Glucose, POC 169(H) 70 - 140 mg/dL [facility] Comment: For Glucose values <35 mg/dl when Hematocrit is >60 mg/dl,the test may not accurately detect significant hypoglycemia,and testing in the Laboratory should be considered if clinically indicated. Blood 10/18/2023 7:02 AM TROMPER 10/18/2023 7:02 AM TROMPER Jaqueline Valero MD LAB POCT ORDERABLES - APRIL CE Final Result [facility] [address] Department [place] [address] * (ABNORMAL) POCT glucose (10/18/2023 6:04 AM TROMPER) Glucose, POC 196(H) 70 - 140 mg/dL [facility] Comment: For Glucose values <35 mg/dl when Hematocrit is >60 mg/dl,the test may not accurately detect significant hypoglycemia,and testing in the Laboratory should be considered if clinically indicated. Blood 10/18/2023 6:04 AM TROMPER 10/18/2023 6:04 AM TROMPER us Jaqueline Valero MD LAB POCT ORDERABLES - APRIL CE Final Result [facility] [address] Department [place] [address] * XR Chest 1 View - Portable - in AM (10/18/2023 5:38 AM TROMPER) Anatomical Region Laterality Modality Body, Chest N/A Computed Radiogr aphy 10/18/2023 9:33 AM TROMPER Impressions 10/18/2023 9:33 AM TROMPER Comparison 10/17/2023 at 1:37 PM. ??Median sternotomy wires and sternal plates again seen. ??Aortic valve replacement again noted. ??[place] catheter tip projects over the proximal portion [...] Ramirez Blake M.D. Narrative 10/18/2023 9:33 AM TROMPER EXAMINATION: Chest 1 view Procedure Note Ramirez Blake MD - 10/18/2023 EXAMINATION: Chest 1 view IMPRESSION: Comparison 10/17/2023 at 1:37 PM. Median sternotomy wires and sternal plates again seen. Aortic valve replacement again noted. [place]Daniel catheter tip projects over the proximal portion [...] signed by: Ramirez Blake M.D. Byron Olvera RESPIRATORY CARE TECHNICIAN IMG XR PROCEDURES Final Result * (ABNORMAL) POCT glucose (10/18/2023 5:04 AM TROMPER) Glucose, POC 172(H) 70 - 140 mg/dL [facility] Comment: For Glucose values <35 mg/dl when Hematocrit is >60 mg/dl,the test may not accurately detect significant hypoglycemia,and testing in the Laboratory should be considered if clinically indicated. Blood 10/18/2023 5:04 AM TROMPER 10/18/2023 5:04 AM TROMPER Result [facility] Jaqueline Valero MD LAB POCT ORDERABLES - APRIL CE Final Result Performing Organization Address [facility] de Phone Number [facility] [address] [employer] [place], [place] [id number] * (ABNORMAL) POCT glucose (10/18/2023 4:03 AM TROMPER) Glucose, POC 165(H) 70 - 140 mg/dL [facility] Comment: For Glucose values <35 mg/dl when Hematocrit is >60 mg/dl,the test may not accurately detect significant hypoglycemia,and testing in the Laboratory should be considered if clinically indicated. Blood 10/18/2023 4:03 AM TROMPER 10/18/2023 4:03 AM TROMPER Result [facility] Jaqueline Valero MD LAB POCT ORDERABLES - APRIL CE Final Result Performing Organization Address [facility] Co de Phone Number [facility] [address] [facility] [place] [address] * (ABNORMAL) POCT glucose (10/18/2023 3:04 AM TROMPER) Glucose, POC 167(H) 70 - 140 mg/dL [facility] Comment: For Glucose values <35 mg/dl when Hematocrit is >60 mg/dl,the test may not accurately detect significant hypoglycemia,and testing in the Laboratory should be considered if clinically indicated. Blood 10/18/2023 3:04 AM TROMPER 10/18/2023 3:04 AM TROMPER Jaqueline Valeor MD LAB POCT ORDERABLES - APRIL CE Final Result Performing Organization Address [facility] Co de Phone Number [facility] [address] [facility] [employer] [place] [address] * (ABNORMAL) POCT glucose (10/18/2023 1:57 AM TROMPER) Glucose, POC 178(H) 70 - 140 mg/dL [facility] Comment: For Glucose values <35 mg/dl when Hematocrit is >60 mg/dl,the test may not accurately detect significant hypoglycemia,and testing in the Laboratory should be considered if clinically indicated. Blood 10/18/2023 1:57 AM TROMPER 10/18/2023 1:57 AM TROMPER us Jaqueline Valero MD LAB POCT ORDERABLES - APRIL CE Final Result Performing Organization Address [facility] de Phone Number [facility] [address] [facility] [employer] [place] [address] * (ABNORMAL) Fibrinogen (10/18/2023 1:54 AM TROMPER) [facility] Fibrinogen 435(H) 170 - 400 mg/dL [facility] Blood 10/18/2023 1:54 AM TROMPER 10/18/2023 2:14 AM TROMPER us Jaqueline Valero MD LAB BLOOD ORDERABLES Final Result Performing Organization Address [facility] Co de Phone Number [facility] [address] [place] [place] [address] * eGFR (10/18/2023 1:54 AM TROMPER) Pathologist [facility] eGFR 5 mL/min/1. 73 m2 [facility] Comment: Interpretive Data Reference Interval [...] last reviewed 2021. Blood 10/18/2023 1:54 AM TROMPER 10/18/2023 2:14 AM TROMPER us Dawna Castellanos RESPIRATORY CARE TECHNICIAN LAB BLOOD ORDERABLES Ann Marie kramer Result [facility] [address] Department [place] [address] * Blood gas, arterial (10/18/2023 1:54 AM TROMPER) Pathologist [facility] pH, Art 7.35 7.35 - 7.45 [facility] PCO2, Arterial 38 35 - 45 mmHg [facility] PO2, Arterial 92 83 - 108 mmHg [facility] HCO3 Art (Calculated) 21 20 - 30 mmol/L [facility] BE, art -4 mmol/L [facility] Comment: Interpretive Data No Reference Range Established Current Interpretive Data was last revised on 2017 O2 Sat Art (Calculated) 97 94 - 98 % [facility] Blood 10/18/2023 1:54 AM TROMPER 10/18/2023 2:11 AM TROMPER Dawna Castellanos RESPIRATORY CARE TECHNICIAN LAB BLOOD ORDERABLES Ann Marie l Result Performing Organization Address [facility] Co de Phone Number [facility] [address] [place] [place] [address] * Protime-INR (10/18/2023 1:54 AM TROMPER) PT 13.4 10.3 - 13.7 sec [facility] INR 1.18 0.90 - 1.20 [facility] Comment: Interpretive data Oral anticoagulant therapeutic ranges: Venous thromboembolism prophylaxis or treatment: 2.0-3.0 CARDIOLOGY Standard range: 2.0-3.0 High-intensity range: 2.5-3.5 Refer to indication-specific guidelines for appropriate target ranges for prosthetic heart valve replacement. Current interpretive data was last revised on 2019. Blood 10/18/2023 1:54 AM TROMPER 10/18/2023 2:14 AM TROMPER Jaqueline Valero MD LAB BLOOD ORDERABLES Final Result Performing Organization Address [facility] Co de Phone Number [facility] [address] [employer] [place] [address] * Magnesium (10/18/2023 1:54 AM TROMPER) Magnesium 2.5 1.4 - 2.5 mg/dL [facility] Blood 10/18/2023 1:54 AM TROMPER 10/18/2023 2:14 AM TROMPER Byron Olvera RESPIRATORY CARE TECHNICIAN LAB BLOOD ORDERABLES Fi nal Result Performing Organization Address [facility]/State/ZIP Co de Phone Number [facility] [address] Department [place] [address] * Calcium, ionized (10/18/2023 1:54 AM TROMPER) Calcium, Ionized 4.94 4.50 - 5.10 mg/dL [facility] Blood 10/18/2023 1:54 AM TROMPER 10/18/2023 2:12 AM TROMPER Byron Olvera NP LAB BLOOD ORDERABLES Fi nal Result [facility] [address] Department [place] [address] * (ABNORMAL) Renal function panel (10/18/2023 1:54 AM TROMPER) Pathologist [facility] Sodium 136 135 - 145 mmol/L [facility] Potassium, pl 4.0 3.3 - 4.9 mmol/L [facility] Chloride 98 97 - 110 mmol/L [facility] CO2 20(L) 22 - 32 mmol/L [facility] Anion gap 18(H) 2 - 15 mmol/L [facility] BUN 71(H) 6 - 25 mg/dL [facility] Creatinine 10.47(H) 0.80 - 1.30 mg/dL [facility] Glucose 174 70 - 199 mg/dL [facility] Comment: Interpretive Data Fasting glucose [...] 2022. Calcium 9.2 8.5 - 10.3 mg/dL [facility] Phosphorus, pl 6.5(H) 2.3 - 4.5 mg/dL [facility] Albumin 2.6(L) 3.5 - 5.0 g/dL [facility] Blood 10/18/2023 1:54 AM TROMPER 10/18/2023 2:14 AM TROMPER Byron Olvera RESPIRATORY CARE TECHNICIAN LAB BLOOD ORDERABLES Fi nal Result Performing Organization Address [facility] Co de Phone Number [facility] [address] [employer] [place] [address] * (ABNORMAL) CBC without differential (10/18/2023 1:54 AM TROMPER) [facility] WBC 8.3 3.8 - 9.9 K/cumm [facility] Hgb 8.5(L) 13.0 - 17.5 g/dL [facility] Hct 26.4(L) 38.9 - 50.3 % [facility] Plt 164 150 - 400 K/cumm [facility] MPV 11.1 9.1 - 12.3 fL [facility] RBC 2.89(L) 4.30 - 5.80 M/cumm [facility] MCV 91.3 81.3 - 96.4 fL [facility] MCH 29.4 27.1 - 33.3 pg [facility] MCHC 32.2(L) 32.3 - 35.7 g/dL [facility] RDW CV 15.5(H) 11.1 - 14.9 % [facility] RDW SD 49.9(H) 35.7 - 48.1 fL [facility] NRBC abs 0.02(H) 0.00 - 0.01 K/cumm [facility] Blood 10/18/2023 1:54 AM TROMPER 10/18/2023 2:14 AM TROMPER Byron Olvera NP LAB BLOOD ORDERABLES Fi nal Result Performing Organization Address City/[facility]/ZIP Co de Phone Number [facility] [address] [place] [address] * (ABNORMAL) POCT glucose (10/18/2023 12:57 AM TROMPER) Glucose, POC 169(H) 70 - 140 mg/dL [facility] Comment: For Glucose values <35 mg/dl when Hematocrit is >60 mg/dl,the test may not accurately detect significant hypoglycemia,and testing in the Laboratory should be considered if clinically indicated. Blood 10/18/2023 12:5 7 AM TROMPER 10/18/2023 12:57 AM TROMPER Jaqueline Valero MD LAB POCT ORDERABLES - APRIL CE Final Result Performing Organization Address [facility] Co de Phone Number [facility] [address] [facility] [place] [place] [address] * (ABNORMAL) POCT glucose (10/18/2023 12:04 AM TROMPER) Glucose, POC 150(H) 70 - 140 mg/dL [facility] Comment: For Glucose values <35 mg/dl when Hematocrit is >60 mg/dl,the test may not accurately detect significant hypoglycemia,and testing in the Laboratory should be considered if clinically indicated. Blood 10/18/2023 12:0 4 AM TROMPER 10/18/2023 12:04 AM TROMPER Jaqueline Valero MD LAB POCT ORDERABLES - APRIL CE Final Result Performing Organization Address [facility] Co de Phone Number [facility] [address] [facility] [place] [place] [address] * POCT glucose (10/17/2023 11:00 PM TROMPER) Glucose, POC 111 70 - 140 mg/dL [facility] Comment: For Glucose values <35 mg/dl when Hematocrit is >60 mg/dl,the test may not accurately detect significant hypoglycemia,and testing in the Laboratory should be considered if clinically indicated. Blood 10/17/2023 11:0 0 PM TROMPER 10/17/2023 11:00 PM TROMPER Jaqueline Valero MD LAB POCT ORDERABLES - APRIL CE Final Result [facility] [address] Department [place] [address] * (ABNORMAL) Blood gas, arterial (10/17/2023 10:56 PM TROMPER) Pathologist [facility] pH, Art 7.33(L) 7.35 - 7.45 [facility] PCO2, Arterial 38 35 - 45 mmHg [facility] PO2, Arterial 102 83 - 108 mmHg [facility] HCO3 Art (Calculated) 20 20 - 30 mmol/L [facility] BE, art -5 mmol/L [facility] Comment: Interpretive Data No Reference Range Established Current Interpretive Data was last revised on 2017 O2 Sat Art (Calculated) 97 94 - 98 % [facility] Blood 10/17/2023 10:5 6 PM TROMPER 10/17/2023 11:05 PM TROMPER Dawna Castellanos RESPIRATORY CARE TECHNICIAN LAB BLOOD ORDERABLES Ann Marie l Result [facility] [address] Department [place] [address] * (ABNORMAL) Differential, auto (10/17/2023 10:55 PM TROMPER) Pathologist [facility] Neutrophil abs 5.7 1.5 - 6.5 K/cumm [facility] Imm gran abs 0.1 0.0 - 0.1 K/cumm [facility] Lymphocyte abs 0.7(L) 0.8 - 3.3 K/cumm [facility] Monocyte abs 1.1(H) 0.2 - 0.8 K/cumm [facility] Eosinophil abs 0.1 0.0 - 0.5 K/cumm [facility] Basophil abs 0.0 0.0 - 0.1 K/cumm [facility] Neutrophil pct 73.6 % [facility] Comment: Interpretive Data Percent cell count reference ranges are not reported, since discordance with absolute values may lead to misinterpretation of CBC data. Current Interpretive Data was last revised on 2017. Imm gran pct 1.8 % [facility] Comment: Interpretive Data Percent cell count reference ranges are not reported, since discordance with absolute values may lead to misinterpretation of CBC data. Current Interpretive Data was last revised on 2017. Lymphocyte pct 9.3 % [facility] Comment: Interpretive Data Percent cell count reference ranges are not reported, since discordance with absolute values may lead to misinterpretation of CBC data. Current Interpretive Data was last revised on 2017. Monocyte pct 13.7 % [facility] Comment: Interpretive Data Percent cell count reference ranges are not reported, since discordance with absolute values may lead to misinterpretation of CBC data. Current Interpretive Data was last revised on 2017. Eosinophil pct 1.3 % [facility] Comment: Interpretive Data Percent cell count reference ranges are not reported, since discordance with absolute values may lead to misinterpretation of CBC data. Current Interpretive Data was last revised on 2017. Basophil pct 0.3 % [facility] Comment: Interpretive Data Percent cell count reference ranges are not reported, since discordance with absolute values may lead to misinterpretation of CBC data. Current Interpretive Data was last revised on 2017. Blood 10/17/2023 10:5 5 PM TROMPER 10/17/2023 11:19 PM TROMPER Gamal Fox NP LAB BLOOD ORDERABLES Final Result Performing Organization Address City/[facility]/ZIP Co de Phone Number [facility] [address] Department [place] [address] * Lactate (10/17/2023 10:55 PM TROMPER) Lactate 0.9 0.7 - 2.0 mmol/L [facility] Blood 10/17/2023 10:5 5 PM TROMPER 10/17/2023 11:04 PM TROMPER Gamal Fox NP LAB BLOOD ORDERABLES Final Result [facility] [address] [facility] [place] [address] * Calcium, ionized (10/17/2023 10:55 PM TROMPER) [facility] Calcium, Ionized 4.51 4.50 - 5.10 mg/dL [facility] Blood 10/17/2023 10:5 5 PM TROMPER 10/17/2023 11:05 PM TROMPER Gamal Fox RESPIRATORY CARE TECHNICIAN LAB BLOOD ORDERABLES Final Result Performing Organization Address [facility] Co de Phone Number [facility] Quintin MeganSharath [address] [employer] [place] [place] [address] * (ABNORMAL) CBC with auto differential (10/17/2023 10:55 PM TROMPER) [facility] WBC 7.7 3.8 - 9.9 K/cumm [facility] Hgb 8.8(L) 13.0 - 17.5 g/dL [facility] Hct 27.2(L) 38.9 - 50.3 % [facility] Plt 165 150 - 400 K/cumm [facility] MPV 11.0 9.1 - 12.3 fL [facility] RBC 2.94(L) 4.30 - 5.80 M/cumm [facility] MCV 92.5 81.3 - 96.4 fL [facility] MCH 29.9 27.1 - 33.3 pg [facility] MCHC 32.4 32.3 - 35.7 g/dL [facility] RDW CV 15.6(H) 11.1 - 14.9 % [facility] RDW SD 50.5(H) 35.7 - 48.1 fL [facility] NRBC abs 0.03(H) 0.00 - 0.01 K/cumm [facility] Blood 10/17/2023 10:5 5 PM TROMPER 10/17/2023 11:19 PM TROMPER Gamal Fox NP LAB BLOOD ORDERABLES Final Result Performing Organization Address [facility] Co de Phone Number [facility] [address] [place] [address] * POCT glucose (10/17/2023 10:19 PM TROMPER) Glucose, POC 97 70 - 140 mg/dL [facility] Comment: For Glucose values <35 mg/dl when Hematocrit is >60 mg/dl,the test may not accurately detect significant hypoglycemia,and testing in the Laboratory should be considered if clinically indicated. Blood 10/17/2023 10:1 9 PM TROMPER 10/17/2023 10:19 PM TROMPER Jaqueline Valero MD LAB POCT ORDERABLES - APRIL CE Final Result Performing Organization Address [facility] de Phone Number [facility] [address] [facility] [employer] [place] [address] * POCT glucose (10/17/2023 9:00 PM TROMPER) Glucose, POC 127 70 - 140 mg/dL [facility] Comment: For Glucose values <35 mg/dl when Hematocrit is >60 mg/dl,the test may not accurately detect significant hypoglycemia,and testing in the Laboratory should be considered if clinically indicated. Blood 10/17/2023 9:00 PM TROMPER 10/17/2023 9:00 PM TROMPER Jaqueline Valero MD LAB POCT ORDERABLES - APRIL CE Final Result Performing Organization Address [facility] Co de Phone Number [facility] [address] Department [employer] [place], [place] [address] [phone] * Transfuse RBC (10/17/2023 8:13 PM TROMPER) Blood Kirsten Burns MD BLOOD TRANSFUSION ORDERA BLES Final Result Performing Organization Address [facility] Co de Phone Number [facility] [address] Department [place] [address] * Transfuse RBC: 1 Units (10/17/2023 8:13 PM TROMPER) Blood Kirsten Burns MD BLOOD TRANSFUSION ORDERA BLES Final Result * (ABNORMAL) POCT glucose (10/17/2023 8:07 PM TROMPER) Glucose, POC 157(H) 70 - 140 mg/dL [facility] Comment: For Glucose values <35 mg/dl when Hematocrit is >60 mg/dl,the test may not accurately detect significant hypoglycemia,and testing in the Laboratory should be considered if clinically indicated. Blood 10/17/2023 8:07 PM TROMPER 10/17/2023 8:07 PM TROMPER Result [facility] Jaqueline Valero MD LAB POCT ORDERABLES - APRIL CE Final Result Performing Organization Address [facility] Co de Phone Number [facility] [address] [facility] [employer] [place] [address] * POCT glucose (10/17/2023 7:18 PM TROMPER) Glucose, POC 135 70 - 140 mg/dL [facility] Comment: For Glucose values <35 mg/dl when Hematocrit is >60 mg/dl,the test may not accurately detect significant hypoglycemia,and testing in the Laboratory should be considered if clinically indicated. Blood 10/17/2023 7:18 PM TROMPER 10/17/2023 7:18 PM TROMPER Jaqueline Valero MD LAB POCT ORDERABLES - APRIL CE Final Result Performing Organization Address City/[facility]/ZIP Co de Phone Number [facility] [address] Department [place] [address] * Critical Care (10/17/2023 6:42 PM TROMPER) Narrative Kirsten Burns MD - 10/17/2023 6:42 PM TROMPER Gamal Fox NP ? 10/18/2023 ??5:08 AM Critical Care Performed by: Gamal Fox NP Authorized by: Gamal Fox NP ?? CRITICAL CARE: ??Team: ??[facility] ??Shift: ??PM ??Level of Billing: ??Critical [...] plan with the ICU team and other medical/seo consultant staff, making frequent assessments and decisions [...] patient with consultants and the medical staff Gamal Fox NP IN CLINIC/BEDSIDE ORDERABL ES Final Result * Prepare RBC: 1 Units (10/17/2023 6:34 PM TROMPER) Product code [id number] Unit Number [id number] [id number] [facility] Product Blood Type APOS [facility] Dispense Status RETURNED [facility] Blood 10/17/2023 6:34 PM TROMPER Narrative [facility] - 10/19/2023 7:08 AM TROMPER Other indication->Bleeding post cardiac surgery Are special requirements needed? (All products are leukoreduced and CMV- safe)- >No Date required:-20231017 LRRBC # of [id number] Reasons:-Other (specify)} Kirsten Burns MD BLOOD BANK PRODUCT ORDER ROVERTO Final Result Performing Organization Address [facility]/ZIP Co de Phone Number [facility] [address] [facility] [place] [place] [address] * Potassium (10/17/2023 6:14 PM TROMPER) [facility] Potassium, pl 4.2 3.3 - 4.9 mmol/L [facility] Blood 10/17/2023 6:14 PM TROMPER 10/17/2023 6:27 PM TROMPER Byron Olvera RESPIRATORY CARE TECHNICIAN LAB BLOOD ORDERABLES Fi nal Result Performing Organization Address [facility] Co de Phone Number [facility] [address] [employer] [place] [place] [address] * (ABNORMAL) CBC without differential (10/17/2023 6:12 PM TROMPER) [facility] WBC 7.2 3.8 - 9.9 K/cumm [facility] Hgb 8.0(L) 13.0 - 17.5 g/dL [facility] Hct 24.7(L) 38.9 - 50.3 % [facility] Plt 161 150 - 400 K/cumm [facility] MPV 10.8 9.1 - 12.3 fL [facility] RBC 2.68(L) 4.30 - 5.80 M/cumm [facility] MCV 92.2 81.3 - 96.4 fL [facility] MCH 29.9 27.1 - 33.3 pg [facility] MCHC 32.4 32.3 - 35.7 g/dL [facility] RDW CV 15.5(H) 11.1 - 14.9 % [facility] RDW SD 50.4(H) 35.7 - 48.1 fL [facility] NRBC abs 0.04(H) 0.00 - 0.01 K/cumm [facility] Blood 10/17/2023 6:12 PM TROMPER 10/17/2023 6:18 PM TROMPER us Dawna Castellanos RESPIRATORY CARE TECHNICIAN LAB BLOOD ORDERABLES Ann Marie l Result Performing Organization Address [facility] Co de Phone Number [facility] [address] [facility] [place] [place] [address] * (ABNORMAL) Protime-INR (10/17/2023 6:12 PM TROMPER) PT 13.9(H) 10.3 - 13.7 sec [facility] INR 1.22(H) 0.90 - 1.20 [facility] Comment: Interpretive data Oral anticoagulant therapeutic ranges: Venous thromboembolism prophylaxis or treatment: 2.0-3.0 CARDIOLOGY Standard range: 2.0-3.0 High-intensity range: 2.5-3.5 Refer to indication-specific guidelines for appropriate target ranges for prosthetic heart valve replacement. Current interpretive data was last revised on 2019. Blood 10/17/2023 6:12 PM TROMPER 10/17/2023 6:18 PM TROMPER [facility] LAB BLOOD ORDERABLES Ann Marie l Result Performing Organization Address [facility] Co de Phone Number [facility] [address] [facility] [place] [place] [address] * Fibrinogen (10/17/2023 6:12 PM TROMPER) Pathologist [facility] Fibrinogen 386 170 - 400 mg/dL [facility] Blood 10/17/2023 6:12 PM TROMPER 10/17/2023 6:18 PM TROMPER [facility] Leeann Seville RESPIRATORY CARE TECHNICIAN LAB BLOOD ORDERABLES Ann Marie l Result Performing Organization Address City/[facility] Co de Phone Number [facility] [address] [facility] [place] [place] [address] * aPTT (10/17/2023 6:12 PM TROMPER) aPTT 32 28 - 38 sec [facility] Comment: Interpretive Data Heparin therapeutic range: 66.0 - 100.0 seconds. Range based on correlation with therapeutic heparin activity range of 0.3 - 0.7 Units/mL. Current interpretive data was last revised on 2023. Blood 10/17/2023 6:12 PM TROMPER 10/17/2023 6:18 PM TROMPER Dawna Castellanos RESPIRATORY CARE TECHNICIAN LAB BLOOD ORDERABLES Ann Marie l Result Performing Organization Address [facility] de Phone Number [facility] [address] Department [place] [address] * (ABNORMAL) Blood gas, arterial (10/17/2023 6:12 PM TROMPER) pH, Art 7.40 7.35 - 7.45 [facility] PCO2, Arterial 35 35 - 45 mmHg [facility] PO2, Arterial 69(L) 83 - 108 mmHg [facility] HCO3 Art (Calculated) 22 20 - 30 mmol/L [facility] BE, art -2 mmol/L [facility] Comment: Interpretive Data No Reference Range Established Current Interpretive Data was last revised on 2017 O2 Sat Art (Calculated) 94 94 - 98 % [facility] Blood 10/17/2023 6:12 PM TROMPER 10/17/2023 6:15 PM TROMPER Dawna Castellanos RESPIRATORY CARE TECHNICIAN LAB BLOOD ORDERABLES Ann Marie l Result Performing Organization Address [facility] Co de Phone Number [facility] [address] Department [place] [address] * POCT glucose (10/17/2023 6:11 PM TROMPER) Glucose, POC 130 70 - 140 mg/dL [facility] Comment: For Glucose values <35 mg/dl when Hematocrit is >60 mg/dl,the test may not accurately detect significant hypoglycemia,and testing in the Laboratory should be considered if clinically indicated. Blood 10/17/2023 6:11 PM TROMPER 10/17/2023 6:11 PM TROMPER Jaqueline Valero MD LAB POCT ORDERABLES - APRIL CE Final Result Performing Organization Address [facility] Co de Phone Number [facility] [address] [employer] [place] [address] * Transfuse plasma Standard plasma (10/17/2023 5:46 PM TROMPER) Blood Kirsten Burns MD BLOOD TRANSFUSION ORDERA BLES Final Result Performing Organization Address [facility] Co de Phone Number [facility] [address] [place] [address] * Transfuse plasma: 1 Units Standard plasma (10/17/2023 5:46 PM TROMPER) Blood Kirsten Burns MD BLOOD TRANSFUSION ORDERA BLES Final Result * Prepare plasma: 1 Units Standard plasma (10/17/2023 5:09 PM TROMPER) Product code [id number] Unit Number [id number] [facility] Product Blood Type APOS [facility] Dispense Status PRESUMED TRANSFUSED [facility] Blood (Blood, Venous) 10/17/2023 5:09 PM TROMPER Narrative [facility] - 10/17/2023 10:15 PM TROMPER Is this plasma order intended for a COVID-19 patient as convalescent plasma?->Standard plasma Special Requirements Needed?->No Date required:-[id number] FFP # of Units:-1-Units Reasons:-Active major bleeding with coagulopathy} Kirsten Burns MD BLOOD BANK PRODUCT ORDER ROVERTO Final Result Performing Organization Address [facility] Co de Phone Number [facility] [address] [place] [place] [address] * POCT glucose (10/17/2023 4:50 PM TROMPER) Glucose, POC 110 70 - 140 mg/dL [facility] Comment: For Glucose values <35 mg/dl when Hematocrit is >60 mg/dl,the test may not accurately detect significant hypoglycemia,and testing in the Laboratory should be considered if clinically indicated. Blood 10/17/2023 4:50 PM TROMPER 10/17/2023 4:50 PM TROMPER Result [facility] Jaqueline Valero MD LAB POCT ORDERABLES - APRIL CE Final Result Performing Organization Address [facility] Co de Phone Number [facility] [address] Department of [employer] [place], [place] [id number] * Transfuse plasma Standard plasma (10/17/2023 4:33 PM TROMPER) Blood Result [facility] Kirsten Burns MD BLOOD TRANSFUSION ORDERA BLES Final Result Performing Organization Address [facility] de Phone Number [facility] [address] [place] [place] [address] * Transfuse plasma: 1 Units Standard plasma (10/17/2023 4:33 PM TROMPER) Blood Result [facility] Kirsten Burns MD BLOOD TRANSFUSION ORDERA BLES Final Result * Transfuse RBC (10/17/2023 4:33 PM TROMPER) Blood Result [facility] Kirsten Burns MD BLOOD TRANSFUSION ORDERA BLES Final Result Performing Organization Address [facility] de Phone Number [facility] [address] Department [employer] [place], [place] [id number] * Transfuse RBC: 1 Units (10/17/2023 4:33 PM TROMPER) Blood Result [facility] Kirsten Burns MD BLOOD TRANSFUSION ORDERA BLES Final Result * (ABNORMAL) CBC without differential (10/17/2023 4:32 PM TROMPER) [facility] WBC 7.2 3.8 - 9.9 K/cumm [facility] Hgb 8.5(L) 13.0 - 17.5 g/dL [facility] Hct 26.4(L) 38.9 - 50.3 % [facility] Plt 166 150 - 400 K/cumm [facility] MPV 10.9 9.1 - 12.3 fL [facility] RBC 2.85(L) 4.30 - 5.80 M/cumm [facility] MCV 92.6 81.3 - 96.4 fL [facility] MCH 29.8 27.1 - 33.3 pg [facility] MCHC 32.2(L) 32.3 - 35.7 g/dL [facility] RDW CV 15.5(H) 11.1 - 14.9 % [facility] RDW SD 51.4(H) 35.7 - 48.1 fL [facility] NRBC abs 0.06(H) 0.00 - 0.01 K/cumm [facility] Blood 10/17/2023 4:32 PM TROMPER 10/17/2023 4:37 PM TROMPER Dawna Castellanos RESPIRATORY CARE TECHNICIAN LAB BLOOD ORDERABLES Ann Marie kramer Result [facility] [address] Department [place] [address] * (ABNORMAL) aPTT (10/17/2023 4:32 PM TROMPER) [facility] aPTT 63(H) 28 - 38 sec [facility] Comment: Interpretive Data Heparin therapeutic range: 66.0 - 100.0 seconds. Range based on correlation with therapeutic heparin activity range of 0.3 - 0.7 Units/mL. Current interpretive data was last revised on 2023. Blood 10/17/2023 4:32 PM TROMPER 10/17/2023 4:37 PM TROMPER Dawna Castellanos RESPIRATORY CARE TECHNICIAN LAB BLOOD ORDERABLES Ann Marie l Result [facility] [address] [facility] [employer] [place] [address] * Fibrinogen (10/17/2023 4:32 PM TROMPER) [facility] Fibrinogen 393 170 - 400 mg/dL [facility] Blood 10/17/2023 4:32 PM TROMPER 10/17/2023 4:37 PM TROMPER Dawna Bradshaw Castellanos RESPIRATORY CARE TECHNICIAN LAB BLOOD ORDERABLES Ann Marie l Result Performing Organization Address [facility] Co de Phone Number [facility] [address] [facility] [employer] [place] [address] * (ABNORMAL) Protime-INR (10/17/2023 4:32 PM TROMPER) [facility] PT 14.0(H) 10.3 - 13.7 sec [facility] INR 1.23(H) 0.90 - 1.20 [facility] Comment: Interpretive data Oral anticoagulant therapeutic ranges: Venous thromboembolism prophylaxis or treatment: 2.0-3.0 CARDIOLOGY Standard range: 2.0-3.0 High-intensity range: 2.5-3.5 Refer to indication-specific guidelines for appropriate target ranges for prosthetic heart valve replacement. Current interpretive data was last revised on 2019. Blood 10/17/2023 4:32 PM TROMPER 10/17/2023 4:37 PM TROMPER Dawna Bradshaw [place]ville RESPIRATORY CARE TECHNICIAN LAB BLOOD ORDERABLES Ann Marie l Result Performing Organization Address City/[facility]/ZIP Co de Phone Number [facility] [address] [facility] [employer] [place], [place] [id number] * (ABNORMAL) Blood gas, arterial (10/17/2023 4:32 PM TROMPER) Pathologist [facility] pH, Art 7.31(L) 7.35 - 7.45 [facility] PCO2, Arterial 45 35 - 45 mmHg [facility] PO2, Arterial 72(L) 83 - 108 mmHg [facility] HCO3 Art (Calculated) 23 20 - 30 mmol/L [facility] BE, art -4 mmol/L [facility] Comment: Interpretive Data No Reference Range Established Current Interpretive Data was last revised on 2017 O2 Sat Art (Calculated) 93(L) 94 - 98 % [facility] Blood 10/17/2023 4:32 PM TROMPER 10/17/2023 4:35 PM TROMPER Dawna Castellanos RESPIRATORY CARE TECHNICIAN LAB BLOOD ORDERABLES Ann Marie l Result Performing Organization Address City/[facility]/ZIP Co de Phone Number [facility] [address] Department [place] [address] * POCT glucose (10/17/2023 3:51 PM TROMPER) [facility] Glucose, POC 98 70 - 140 mg/dL [facility] Comment: For Glucose values <35 mg/dl when Hematocrit is >60 mg/dl,the test may not accurately detect significant hypoglycemia,and testing in the Laboratory should be considered if clinically indicated. Blood 10/17/2023 3:51 PM TROMPER 10/17/2023 3:51 PM TROMPER Jaqueline Valero MD LAB POCT ORDERABLES - APRIL CE Final Result Performing Organization Address [facility]/ZIP Co de Phone Number [facility] [address] Department [place] [address] * Prepare plasma: 1 Units Standard plasma (10/17/2023 3:32 PM TROMPER) Pathologist [facility] Product code [id number] Unit Number [id number] [facility] Product Blood Type APOS [facility] Dispense Status PRESUMED TRANSFUSED [facility] Blood (Blood, Venous) 10/17/2023 3:32 PM TROMPER Narrative [facility] - 10/17/2023 10:15 PM TROMPER Is this plasma order intended for a COVID-19 patient as convalescent plasma?->Standard plasma Special Requirements Needed?->No Date required:-20231017 FFP # of Units:-1-Units Reasons:-Active major bleeding with coagulopathy} Result [facility] Kirsten Burns MD BLOOD BANK PRODUCT ORDER ROVERTO Final Result Performing Organization Address [facility] de Phone Number [facility] [address] [place] [address] * Prepare RBC: 1 Units (10/17/2023 3:32 PM TROMPER) [facility] Product code [id number] Unit Number [id number] [facility] Product Blood Type APOS [facility] Dispense Status RETURNED [facility] Blood 10/17/2023 3:32 PM TROMPER Narrative [facility] - 10/19/2023 7:08 AM TROMPER Are special requirements needed? (All products are leukoreduced and CMV- safe)- >No Date required:-20231017 LRRBC # of [id number] Reasons:-Hemorrhagic shock/Life-threatening bleeding} Result [facility] Kirsten Burns MD BLOOD BANK PRODUCT ORDER ROVERTO Final Result Performing Organization Address [facility] de Phone Number [facility] [address] [place] [address] * POCT glucose (10/17/2023 2:34 PM TROMPER) [facility] Glucose, POC 102 70 - 140 mg/dL [facility] Comment: For Glucose values <35 mg/dl when Hematocrit is >60 mg/dl,the test may not accurately detect significant hypoglycemia,and testing in the Laboratory should be considered if clinically indicated. Blood 10/17/2023 2:34 PM TROMPER 10/17/2023 2:34 PM TROMPER Result [facility] Jaqueline Valero MD LAB POCT ORDERABLES - APRIL CE Final Result Performing Organization Address [facility] de Phone Number [facility] [address] Department [place] [address] * XR Chest 1 View - Portable (10/17/2023 1:49 PM TROMPER) Anatomical Region Laterality Modality Body, Chest N/A Computed Radiogr aphy 10/17/2023 2:01 PM TROMPER Impressions 10/17/2023 2:01 PM TROMPER Comparison is made to two-view chest radiograph dated 10/16/2023. ??Endotracheal tube projects approximately 4.5 cm above the boni. ??Interval postoperative changes of median sternotomy with sternal wires, sternal plating, for aortic valve replacement. ??Right internal jugular central venous catheter overlies the superior vena cava. ??[place]-Daniel catheter tip projects over the main pulmonary artery. ??Left thoracostomy tube and mediastinal drain. ??Gastric tube courses caudally beneath left hemidiaphragm out of the [id number]. Lung volumes are small with minimal bibasilar atelectasis, left greater than right. ??Possible trace left pleural effusion. ??No pneumothorax. Electronically signed by: Tania Malone M.D. Narrative 10/17/2023 2:01 PM TROMPER EXAMINATION: 1 view chest radiograph Procedure Note Tania Malone MD - 10/17/2023 EXAMINATION: 1 view chest radiograph IMPRESSION: Comparison is made to two-view chest radiograph dated 10/16/2023. Endotracheal tube projects approximately 4.5 cm above the boni. Interval postoperative changes of median sternotomy with sternal wires, sternal plating, for aortic valve replacement. Right internal jugular central venous catheter overlies the superior vena cava. [place]-Daniel catheter tip projects over the main pulmonary artery. Left thoracostomy tube and mediastinal drain. Gastric tube courses caudally beneath left hemidiaphragm out of the [id number]. Lung volumes are small with minimal bibasilar atelectasis, left greater than right. Possible trace left pleural effusion. No pneumothorax. Electronically signed by: Tania Malone M.D. Dawna Castellanos RESPIRATORY CARE TECHNICIAN IMG XR PROCEDURES Final R esult * Critical Care (10/17/2023 1:44 PM TROMPER) Narrative Kirsten Burns MD - 10/17/2023 1:44 PM TROMPER Dawna Castellanos NP ? 10/17/2023 ??4:35 PM Critical Care Performed by: Dawna Castellanos NP Authorized by: Dawna Castellanos NP ?? CRITICAL CARE: ??Team: ??[facility] ??Shift: ??AM ??Level of Billing: ??Critical [...] plan with the ICU team and other medical/seo consultant staff, making frequent assessments and decisions [...] monitors, laboratory results, and imaging Dawna Castellanos RESPIRATORY CARE TECHNICIAN IN CLINIC/BEDSIDE ORDERAB LES Final Result * eGFR (10/17/2023 1:27 PM TROMPER) [facility] eGFR 5 mL/min/1. 73 m2 [facility] Comment: Interpretive Data Reference Interval [...] last reviewed 2021. Blood 10/17/2023 1:27 PM TROMPER 10/17/2023 1:37 PM TROMPER Dawna Castellanos RESPIRATORY CARE TECHNICIAN LAB BLOOD ORDERABLES Ann Marie l Result Performing Organization Address [facility]/ZIP Co de Phone Number [facility] [address] [place] [place] [address] * Fibrinogen (10/17/2023 1:27 PM TROMPER) Fibrinogen 393 170 - 400 mg/dL [facility] Blood 10/17/2023 1:27 PM TROMPER 10/17/2023 1:37 PM TROMPER Dawna Castellanos RESPIRATORY CARE TECHNICIAN LAB BLOOD ORDERABLES Ann Marie l Result [facility] [address] [place] [place] [address] * Lactate (10/17/2023 1:27 PM TROMPER) Lactate 1.2 0.7 - 2.0 mmol/L [facility] Blood 10/17/2023 1:27 PM TROMPER 10/17/2023 1:33 PM TROMPER Dawna Castellanos RESPIRATORY CARE TECHNICIAN LAB BLOOD ORDERABLES Ann Marie l Result Performing Organization Address [facility] Co de Phone Number [facility] [address] [facility] [place] [employer] [place] [address] * aPTT (10/17/2023 1:27 PM TROMPER) aPTT 37 28 - 38 sec [facility] Comment: Interpretive Data Heparin therapeutic range: 66.0 - 100.0 seconds. Range based on correlation with therapeutic heparin activity range of 0.3 - 0.7 Units/mL. Current interpretive data was last revised on 2023. Blood 10/17/2023 1:27 PM TROMPER 10/17/2023 1:37 PM TROMPER Dawna Bradshaw [facility] LAB BLOOD ORDERABLES Ann Marie l Result Performing Organization Address [facility] de Phone Number [facility] [address] [facility] [place] [place] [address] * (ABNORMAL) Protime-INR (10/17/2023 1:27 PM TROMPER) PT 14.7(H) 10.3 - 13.7 sec [facility] INR 1.29(H) 0.90 - 1.20 [facility] Comment: Interpretive data Oral anticoagulant therapeutic ranges: Venous thromboembolism prophylaxis or treatment: 2.0-3.0 CARDIOLOGY Standard range: 2.0-3.0 High-intensity range: 2.5-3.5 Refer to indication-specific guidelines for appropriate target ranges for prosthetic heart valve replacement. Current interpretive data was last revised on 2019. Blood 10/17/2023 1:27 PM TROMPER 10/17/2023 1:37 PM TROMPER Dawna Bradshaw [facility] LAB BLOOD ORDERABLES Ann Marie l Result Performing Organization Address [facility] Co de Phone Number [facility] [address] [facility] [place] [place] [address] * (ABNORMAL) CBC without differential (10/17/2023 1:27 PM TROMPER) Pathologist [facility] WBC 7.4 3.8 - 9.9 K/cumm [facility] Hgb 8.4(L) 13.0 - 17.5 g/dL [facility] Hct 26.0(L) 38.9 - 50.3 % [facility] Plt 167 150 - 400 K/cumm [facility] MPV 10.7 9.1 - 12.3 fL [facility] RBC 2.85(L) 4.30 - 5.80 M/cumm [facility] MCV 91.2 81.3 - 96.4 fL [facility] MCH 29.5 27.1 - 33.3 pg [facility] MCHC 32.3 32.3 - 35.7 g/dL [facility] RDW CV 15.4(H) 11.1 - 14.9 % [facility] RDW SD 49.8(H) 35.7 - 48.1 fL [facility] NRBC abs 0.06(H) 0.00 - 0.01 K/cumm [facility] Blood 10/17/2023 1:27 PM TROMPER 10/17/2023 1:37 PM TROMPER Dawna Castellanos RESPIRATORY CARE TECHNICIAN LAB BLOOD ORDERABLES Ann Marie kramer Result [facility] [address] Department [place] [address] * (ABNORMAL) Blood gas, arterial (10/17/2023 1:27 PM TROMPER) Pathologist [facility] pH, Art 7.36 7.35 - 7.45 [facility] PCO2, Arterial 42 35 - 45 mmHg [facility] PO2, Arterial 65(L) 83 - 108 mmHg [facility] HCO3 Art (Calculated) 24 20 - 30 mmol/L [facility] BE, art -2 mmol/L [facility] Comment: Interpretive Data No Reference Range Established Current Interpretive Data was last revised on 2017 O2 Sat Art (Calculated) 92(L) 94 - 98 % [facility] Blood 10/17/2023 1:27 PM TROMPER 10/17/2023 1:33 PM TROMPER Dawna Bradshaw Emanuel RESPIRATORY CARE TECHNICIAN LAB BLOOD ORDERABLES Ann Marie l Result Performing Organization Address [facility] Co de Phone Number [facility] [address] [facility] [place] [place] [address] * Calcium, ionized (10/17/2023 1:27 PM TROMPER) [facility] Calcium, Ionized 4.51 4.50 - 5.10 mg/dL [facility] Blood 10/17/2023 1:27 PM TROMPER 10/17/2023 1:34 PM TROMPER Dawna Castellanos RESPIRATORY CARE TECHNICIAN LAB BLOOD ORDERABLES Ann Marie l Result Performing Organization Address [facility] Co de Phone Number [facility] [address] [place] [place] [address] * Magnesium (10/17/2023 1:27 PM TROMPER) [facility] Magnesium 2.3 1.4 - 2.5 mg/dL [facility] Blood 10/17/2023 1:27 PM TROMPER 10/17/2023 1:37 PM TROMPER Dawna Mcginnisisaias Castellanos RESPIRATORY CARE TECHNICIAN LAB BLOOD ORDERABLES Ann Marie l Result Performing Organization Address [facility] Co de Phone Number [facility] [address] [facility] [place] [place] [address] * (ABNORMAL) Basic metabolic panel (10/17/2023 1:27 PM TROMPER) [facility] Sodium 139 135 - 145 mmol/L [facility] Potassium, pl 3.8 3.3 - 4.9 mmol/L [facility] Chloride 98 97 - 110 mmol/L [facility] CO2 23 22 - 32 mmol/L [facility] Anion gap 18(H) 2 - 15 mmol/L [facility] BUN 75(H) 6 - 25 mg/dL [facility] Creatinine 10.43(H) 0.80 - 1.30 mg/dL [facility] Glucose 119 70 - 199 mg/dL [facility] Comment: Interpretive Data Fasting glucose [...] 2022. Calcium 8.9 8.5 - 10.3 mg/dL [facility] Blood 10/17/2023 1:2 7 PM TROMPER 10/17/2023 1:37 PM TROMPER Dawna Castellanos RESPIRATORY CARE TECHNICIAN LAB BLOOD ORDERABLES Ann Marie l Result [facility] [address] [employer] [place], [place] [id number] * (ABNORMAL) Phosphorus (10/17/2023 1:27 PM TROMPER) Phosphorus, pl 6.1(H) 2.3 - 4.5 mg/dL [facility] Blood 10/17/2023 1:27 PM TROMPER 10/17/2023 1:37 PM TROMPER Dawna Castellanos RESPIRATORY CARE TECHNICIAN LAB BLOOD ORDERABLES Ann Marie l Result [facility] [address] [facility] [place] [address] * POCT glucose (10/17/2023 1:25 PM TROMPER) Glucose, POC 137 70 - 140 mg/dL [facility] Comment: For Glucose values <35 mg/dl when Hematocrit is >60 mg/dl,the test may not accurately detect significant hypoglycemia,and testing in the Laboratory should be considered if clinically indicated. Blood 10/17/2023 1:25 PM TROMPER 10/17/2023 1:25 PM TROMPER Jovani Kat DO LAB POCT ORDERABLES - DE VICE Final Result Performing Organization Address City/[facility]/ZIP Co de Phone Number [facility] [address] Department [place] [place] [address] * POC Activated Clotting Time, High Range (10/17/2023 12:26 PM TROMPER) [facility] ACT 104 87 - 138 sec [facility] Blood 10/17/2023 12:2 6 PM TROMPER 10/17/2023 12:26 PM TROMPER Jaqueline Valero MD LAB BLOOD ORDERABLES Final Result Performing Organization Address [facility]/ZIP Co de Phone Number [facility] [address] [place] [place] [address] * (ABNORMAL) POC Blood Gas and Chemistries, Arterial - (10/17/2023 12:26 PM TROMPER) [facility] pH, Art POC 7.31(L) 7.35 - 7.45 [facility] pCO2, Art POC 48(H) 35 - 45 mmHg [facility] pO2, Art POC 112(H) 80 - 108 mmHg [facility] Na, POC 134(L) 135 - 145 mmol/L [facility] K POC 4.0 3.3 - 4.9 mmol/L [facility] Comment: Interpretive Data This method is not able to assess for hemolysis, which may falsely increase potassium concentrations. If further testing is needed to evaluate this result, consider in-laboratory plasma potassium. Current Interpretive Data was last revised on 2022. Cl, POC 97 97 - 110 mmol/L [facility] Ionized Ca, POC 4.80 4.50 - 5.10 mg/dL [facility] Glucose, POC 147 70 - 199 mg/dL [facility] Lactate, POC 2.9(H) 0.0 - 2.0 mmol/L [facility] O2Hb, Art POC 96.7(H) 90.0 - 95.0 % [facility] Carboxhgb fract 0.8 0.0 - 2.9 % [facility] Methemoglobin 0.6 0.0 - 1.9 % [facility] HHb, POC 1.9 0.0 - 5.0 % [facility] SO2 (oren) arterial 98(H) 90 - 95 % [facility] Total CO2, Art POC 26 22 - 32 mmol/L [facility] BE, art, POC -2.1(L) -2.0 - 2.0 mmol/L [facility] HCO3, Art POC 23 20 - 30 mmol/L [facility] Hct, POC 24.0(L) 38.9 - 50.3 % [facility] Total Hb, POC 8.1(L) 13.0 - 17.5 g/dL [facility] Blood 10/17/2023 12:2 6 PM TROMPER 10/17/2023 12:26 PM TROMPER Jovani Kat DO LAB POCT ORDERABLES - DE VICE Final Result Performing Organization Address [facility]/ZIP Co de Phone Number [facility] [address] [facility] [place] [address] * Transfuse platelets (10/17/2023 12:24 PM TROMPER) Blood Ayden Alan MD BLOOD TRANSFUSION ORDERABLES F inal Result [facility] [address] [place] [place] [address] * Transfuse RBC (10/17/2023 12:11 PM TROMPER) Blood us Ayden Alan MD BLOOD TRANSFUSION ORDERABLES F inal Result Performing Organization Address [facility] Co de Phone Number [facility] [address] [facility] [employer] [place], [place] [id number] * Prepare RBC: 2 Units (10/17/2023 12:11 PM TROMPER) Product code [id number] Unit Number [id number] [facility] Product Blood Type APOS [facility] Dispense Status PRESUMED TRANSFUSED [facility] Product code [id number] [facility] Unit Number [id number] [facility] Product Blood Type APOS [facility] Dispense Status PRESUMED TRANSFUSED [facility] Blood 10/17/2023 12:1 1 PM TROMPER Narrative [facility] - 10/18/2023 10:15 PM TROMPER Are special requirements needed? (All products are leukoreduced and CMV- safe)- >No Date required:-[id number] LRRBC # of [id number] Reasons:-Intra-op transfusion} Jaqueline Valero MD BLOOD BANK PRODUCT ORDERAB LES Final Result Performing Organization Address [facility] Co de Phone Number [facility] [address] Department [employer] [place], [place] [id number] * Transfuse cryoprecipitate (pooled units) (10/17/2023 12:05 PM TROMPER) Blood Ayden Alan MD BLOOD TRANSFUSION ORDERABLES F inal Result Performing Organization Address [facility] Co de Phone Number [facility] [address] [facility] [employer] [place], [place] [phone] * Transfuse cryoprecipitate (pooled units) (10/17/2023 12:05 PM TROMPER) Blood us Ayden Alan MD BLOOD TRANSFUSION ORDERABLES F inal Result Performing Organization Address [facility] Co de Phone Number [facility] [address] [facility] [place] [place] [address] * Transfuse plasma (10/17/2023 12:04 PM TROMPER) Blood us Ayden Alan MD BLOOD TRANSFUSION ORDERABLES F inal Result [facility] [address] [place] [address] * Transfuse plasma (10/17/2023 12:04 PM TROMPER) Blood us Ayden Alan MD BLOOD TRANSFUSION ORDERABLES F inal Result Performing Organization Address City/[facility]/ZIP Co de Phone Number [facility] [address] [place] [address] * (ABNORMAL) POC Blood Gas and Chemistries, Arterial - (10/17/2023 11:51 AM TROMPER) Pathologist [facility] pH, Art POC 7.36 7.35 - 7.45 [facility] pCO2, Art POC 39 35 - 45 mmHg [facility] pO2, Art POC 407(H) 80 - 108 mmHg [facility] Na, POC 131(L) 135 - 145 mmol/L [facility] K POC 5.5(H) 3.3 - 4.9 mmol/L [facility] Comment: Interpretive Data This method is not able to assess for hemolysis, which may falsely increase potassium concentrations. If further testing is needed to evaluate this result, consider in-laboratory plasma potassium. Current Interpretive Data was last revised on 2022. Cl, POC 97 97 - 110 mmol/L [facility] Ionized Ca, POC 3.99(L) 4.50 - 5.10 mg/dL [facility] Glucose, POC 115 70 - 199 mg/dL [facility] Lactate, POC 2.8(H) 0.0 - 2.0 mmol/L [facility] O2Hb, Art POC 97.2(H) 90.0 - 95.0 % [facility] Carboxhgb fract 0.0 0.0 - 2.9 % [facility] Methemoglobin 0.9 0.0 - 1.9 % [facility] HHb, POC 1.9 0.0 - 5.0 % [facility] SO2 (oren) arterial 98(H) 90 - 95 % [facility] Total CO2, Art POC 23 22 - 32 mmol/L [facility] BE, art, POC -3.2(L) -2.0 - 2.0 mmol/L [facility] HCO3, Art POC 22 20 - 30 mmol/L [facility] Hct, POC 24.0(L) 38.9 - 50.3 % [facility] Total Hb, POC 7.9(L) 13.0 - 17.5 g/dL [facility] Blood 10/17/2023 11:5 1 AM TROMPER 10/17/2023 11:51 AM TROMPER us Jovani Kat DO LAB POCT ORDERABLES - DE VICE Final Result [facility] [address] Department [employer] [place], [place] [id number] * (ABNORMAL) POC Activated Clotting Time, High Range (10/17/2023 11:50 AM TROMPER) ACT 507(H) 87 - 138 sec [facility] Blood 10/17/2023 11:5 0 AM TROMPER 10/17/2023 11:50 AM TROMPER Jaqueline Valero MD LAB BLOOD ORDERABLES Final Result [facility] [address] Department [facility] [place], [place] [id number] * (ABNORMAL) POC Activated Clotting Time, High Range (10/17/2023 11:22 AM TROMPER) ACT 582(H) 87 - 138 sec [facility] Blood 10/17/2023 11:2 2 AM TROMPER 10/17/2023 11:22 AM TROMPER us Jaqueline Valero MD LAB BLOOD ORDERABLES Final Result [facility] [address] Department [place] [address] * (ABNORMAL) POC Blood Gas and Chemistries, Arterial - (10/17/2023 11:20 AM TROMPER) pH, Art POC 7.32(L) 7.35 - 7.45 [facility] pCO2, Art POC 41 35 - 45 mmHg [facility] pO2, Art POC 362(H) 80 - 108 mmHg [facility] Na, POC 130(L) 135 - 145 mmol/L [facility] K POC 4.5 3.3 - 4.9 mmol/L [facility] Comment: Interpretive Data This method is not able to assess for hemolysis, which may falsely increase potassium concentrations. If further testing is needed to evaluate this result, consider in-laboratory plasma potassium. Current Interpretive Data was last revised on 2022. Cl, POC 97 97 - 110 mmol/L [facility] Ionized Ca, POC 4.19(L) 4.50 - 5.10 mg/dL [facility] Glucose, POC 133 70 - 199 mg/dL [facility] Lactate, POC 2.1(H) 0.0 - 2.0 mmol/L [facility] O2Hb, Art POC 97.8(H) 90.0 - 95.0 % [facility] Carboxhgb fract 0.1 0.0 - 2.9 % [facility] Methemoglobin 0.5 0.0 - 1.9 % [facility] HHb, POC 1.6 0.0 - 5.0 % [facility] SO2 (oren) arterial 98(H) 90 - 95 % [facility] Total CO2, Art POC 22 22 - 32 mmol/L [facility] BE, art, POC -4.7(L) -2.0 - 2.0 mmol/L [facility] HCO3, Art POC 21 20 - 30 mmol/L [facility] Hct, POC 25.0(L) 38.9 - 50.3 % [facility] Total Hb, POC 8.2(L) 13.0 - 17.5 g/dL [facility] Blood 10/17/2023 11:2 0 AM TROMPER 10/17/2023 11:20 AM TROMPER Jovani Kat DO LAB POCT ORDERABLES - DE VICE Final Result Performing Organization Address [facility] Co de Phone Number [facility] [address] [facility] [place] [place] [address] * (ABNORMAL) POC Activated Clotting Time, High Range (10/17/2023 11:05 AM TROMPER) ACT 533(H) 87 - 138 sec [facility] Blood 10/17/2023 11:0 5 AM TROMPER 10/17/2023 11:05 AM TROMPER us Jaqueline Valero MD LAB BLOOD ORDERABLES Final Result Performing Organization Address [facility] Co de Phone Number [facility] [address] [facility] [place] [place] [address] * (ABNORMAL) POC Activated Clotting Time, High Range (10/17/2023 10:53 AM TROMPER) ACT 494(H) 87 - 138 sec [facility] Blood 10/17/2023 10:5 3 AM TROMPER 10/17/2023 10:53 AM TROMPER Jaqueline Valero MD LAB BLOOD ORDERABLES Final Result Performing Organization Address [facility] Co de Phone Number [facility] [address] [facility] [place] [place] [address] * (ABNORMAL) POC Activated Clotting Time, High Range (10/17/2023 10:38 AM TROMPER) ACT 583(H) 87 - 138 sec [facility] Blood 10/17/2023 10:3 8 AM TROMPER 10/17/2023 10:38 AM TROMPER us Jaqueline Valero MD LAB BLOOD ORDERABLES Final Result [facility] [address] Department [place] [address] * (ABNORMAL) POC Blood Gas and Chemistries, Arterial - (10/17/2023 10:38 AM TROMPER) pH, Art POC 7.34(L) 7.35 - 7.45 [facility] pCO2, Art POC 42 35 - 45 mmHg [facility] pO2, Art POC 357(H) 80 - 108 mmHg [facility] Na, POC 132(L) 135 - 145 mmol/L [facility] K POC 4.7 3.3 - 4.9 mmol/L [facility] Comment: Interpretive Data This method is not able to assess for hemolysis, which may falsely increase potassium concentrations. If further testing is needed to evaluate this result, consider in-laboratory plasma potassium. Current Interpretive Data was last revised on 2022. Cl, POC 96(L) 97 - 110 mmol/L [facility] Ionized Ca, POC 4.18(L) 4.50 - 5.10 mg/dL [facility] Glucose, POC 170 70 - 199 mg/dL [facility] Lactate, POC 1.8 0.0 - 2.0 mmol/L [facility] O2Hb, Art POC 97.7(H) 90.0 - 95.0 % [facility] Carboxhgb fract 0.0 0.0 - 2.9 % [facility] Methemoglobin 0.7 0.0 - 1.9 % [facility] HHb, POC 1.5 0.0 - 5.0 % [facility] SO2 (oren) arterial 98(H) 90 - 95 % [facility] Total CO2, Art POC 24 22 - 32 mmol/L [facility] BE, art, POC -2.9(L) -2.0 - 2.0 mmol/L [facility] HCO3, Art POC 23 20 - 30 mmol/L [facility] Hct, POC 24.0(L) 38.9 - 50.3 % [facility] Total Hb, POC 8.0(L) 13.0 - 17.5 g/dL [facility] Blood 10/17/2023 10:3 8 AM TROMPER 10/17/2023 10:38 AM TROMPER Jovani Kat DO LAB POCT ORDERABLES - DE VICE Final Result Performing Organization Address City/[facility]/ZIP Co de Phone Number [facility] [address] Department of Laboratories [place], [place] [phone] * (ABNORMAL) POC Activated Clotting Time, High Range (10/17/2023 10:24 AM TROMPER) ACT 505(H) 87 - 138 sec [facility] Blood 10/17/2023 10:2 4 AM TROMPER 10/17/2023 10:24 AM TROMPER us Jaqueline Valero MD LAB BLOOD ORDERABLES Final Result Performing Organization Address City/[facility]/ZIP Co de Phone Number [facility] [address] Department [place] [place] [address] * (ABNORMAL) POC Blood Gas and Chemistries, Venous - (10/17/2023 10:21 AM TROMPER) pH, Juice POC 7.27(L) 7.32 - 7.45 [facility] pCO2, juice POC 53(H) 40 - 50 mmHg [facility] pO2, juice POC 43(H) 35 - 42 mmHg [facility] Na, POC 133(L) 135 - 145 mmol/L [facility] K POC 4.9 3.3 - 4.9 mmol/L [facility] Comment: Interpretive Data This method is not able to assess for hemolysis, which may falsely increase potassium concentrations. If further testing is needed to evaluate this result, consider in-laboratory plasma potassium. Current Interpretive Data was last revised on 2022. Cl, POC 95(L) 97 - 110 mmol/L [facility] Ionized Ca, POC 4.19(L) 4.50 - 5.10 mg/dL [facility] Glucose, POC 182 70 - 199 mg/dL [facility] Lactate, POC 1.5 0.0 - 2.0 mmol/L [facility] O2Hb, Juice POC 67.4(L) 90.0 - 95.0 % [facility] Carboxhgb fract 0.8 0.0 - 2.9 % [facility] Methemoglobin 0.7 0.0 - 1.9 % [facility] HHb, POC 31.0(H) 0.0 - 5.0 % [facility] O2 Sat, Juice POC (Oren) 68 68 - 77 % [facility] Total CO2, juice POC 26 22 - 32 mmol/L [facility] Base excess, juice POC -2.6 mmol/L [facility] HCO3, Juice POC 22 20 - 30 mmol/L [facility] Hct, POC 23.0(L) 38.9 - 50.3 % [facility] Total Hb, POC 7.6(L) 13.0 - 17.5 g/dL [facility] Blood 10/17/2023 10:2 1 AM [facility] 10/17/2023 10:21 AM TROMPER us Jovani Kat DO LAB POCT ORDERABLES - DE VICE Final Result Performing Organization Address City/[facility]/ZIP Co de Phone Number [facility] [address] [place] [address] * (ABNORMAL) POC Activated Clotting Time, High Range (10/17/2023 10:12 AM TROMPER) ACT 467(H) 87 - 138 sec [facility] Blood 10/17/2023 10:1 2 AM TROMPER 10/17/2023 10:12 AM TROMPER us Jaqueline Valero MD LAB BLOOD ORDERABLES Final Result [facility] [address] Department [place] [address] * (ABNORMAL) POC Blood Gas and Chemistries, Arterial - (10/17/2023 10:11 AM TROMPER) pH, Art POC 7.25(L) 7.35 - 7.45 [facility] pCO2, Art POC 40 35 - 45 mmHg [facility] pO2, Art POC 400(H) 80 - 108 mmHg [facility] Na, POC 129(L) 135 - 145 mmol/L [facility] K POC 4.6 3.3 - 4.9 mmol/L [facility] Comment: Interpretive Data This method is not able to assess for hemolysis, which may falsely increase potassium concentrations. If further testing is needed to evaluate this result, consider in-laboratory plasma potassium. Current Interpretive Data was last revised on 2022. Cl, POC 96(L) 97 - 110 mmol/L [facility] Ionized Ca, POC 4.08(L) 4.50 - 5.10 mg/dL [facility] Glucose, POC 182 70 - 199 mg/dL [facility] Lactate, POC 1.3 0.0 - 2.0 mmol/L [facility] O2Hb, Art POC 98.1(H) 90.0 - 95.0 % [facility] Carboxhgb fract 0.3 0.0 - 2.9 % [facility] Methemoglobin 0.6 0.0 - 1.9 % [facility] HHb, POC 0.9 0.0 - 5.0 % [facility] SO2 (oren) arterial 99(H) 90 - 95 % [facility] Total CO2, Art POC 19(L) 22 - 32 mmol/L [facility] BE, art, POC -9.0(L) -2.0 - 2.0 mmol/L [facility] HCO3, Art POC 18(L) 20 - 30 mmol/L [facility] Hct, POC 22.0(L) 38.9 - 50.3 % [facility] Total Hb, POC 7.4(L) 13.0 - 17.5 g/dL [facility] Blood 10/17/2023 10:1 1 AM TROMPER 10/17/2023 10:11 AM TROMPER us Jovani Kat DO LAB POCT ORDERABLES - DE VICE Final Result [facility] [address] Department [place] [address] * (ABNORMAL) POC Blood Gas and Chemistries, Arterial - (10/17/2023 9:47 AM TROMPER) [facility] pH, Art POC 7.30(L) 7.35 - 7.45 [facility] pCO2, Art POC 40 35 - 45 mmHg [facility] pO2, Art POC 65(L) 80 - 108 mmHg [facility] Na, POC 130(L) 135 - 145 mmol/L [facility] K POC 4.3 3.3 - 4.9 mmol/L [facility] Comment: Interpretive Data This method is not able to assess for hemolysis, which may falsely increase potassium concentrations. If further testing is needed to evaluate this result, consider in-laboratory plasma potassium. Current Interpretive Data was last revised on 2022. Cl, POC 97 97 - 110 mmol/L [facility] Ionized Ca, POC 4.39(L) 4.50 - 5.10 mg/dL [facility] Glucose, POC 202(H) 70 - 199 mg/dL [facility] Lactate, POC 1.1 0.0 - 2.0 mmol/L [facility] O2Hb, Art POC 90.8 90.0 - 95.0 % [facility] Carboxhgb fract 0.7 0.0 - 2.9 % [facility] Methemoglobin 0.0 0.0 - 1.9 % [facility] HHb, POC 8.5(H) 0.0 - 5.0 % [facility] SO2 (oren) arterial 91 90 - 95 % [facility] Total CO2, Art POC 21(L) 22 - 32 mmol/L [facility] BE, art, POC -6.2(L) -2.0 - 2.0 mmol/L [facility] HCO3, Art POC 20 20 - 30 mmol/L [facility] Hct, POC 26.0(L) 38.9 - 50.3 % [facility] Total Hb, POC 8.6(L) 13.0 - 17.5 g/dL [facility] Blood 10/17/2023 9:47 AM TROMPER 10/17/2023 9:47 AM TROMPER us Jovani Kat DO LAB POCT ORDERABLES - DE VICE Final Result Performing Organization Address City/[facility]/ZIP Co de Phone Number [facility] [address] Department of [employer] [place], [place] [id number] * (ABNORMAL) POC Activated Clotting Time, High Range (10/17/2023 9:44 AM TROMPER) ACT 428(H) 87 - 138 sec [facility] Blood 10/17/2023 9:44 AM TROMPER 10/17/2023 9:44 AM TROMPER us Jaqueline Valero MD LAB BLOOD ORDERABLES Final Result Performing Organization Address City/[facility]/ZIP Co de Phone Number [facility] [address] [facility] [place] [address] * Prepare cryoprecipitate (pooled units): 2 Units (10/17/2023 9:12 AM TROMPER) Product code [id number] Unit Number [id number] M [facility] Product Blood Type OPOS [facility] Dispense Status PRESUMED TRANSFUSED [facility] Product code [id number] [facility] Unit Number [id number]- I [facility] Product Blood Type OPOS [facility] Dispense Status PRESUMED TRANSFUSED [facility] Blood (Blood, Venous) 10/17/2023 9:12 AM TROMPER Narrative [facility] - 10/17/2023 10:15 PM TROMPER Other indication->CTOR Cryo # of [id number]-3-Ledmp Reasons:-Other (Specify)} Ayden Alan MD BLOOD BANK PRODUCT ORDERABLES Final Result Performing Organization Address [facility] Co de Phone Number [facility] [address] [facility] [place] [place] [address] * Prepare plasma: 2 Units (10/17/2023 9:12 AM TROMPER) Product code [id number] [facility] Unit Number [id number]- Y [facility] Product Blood Type APOS [facility] Dispense Status PRESUMED TRANSFUSED [facility] Product code [id number] Unit Number [id number]- N [facility] Product Blood Type ANEG [facility] Dispense Status PRESUMED TRANSFUSED [facility] Blood (Blood, Venous) 10/17/2023 9:12 AM TROMPER Narrative [facility] - 10/17/2023 10:15 PM TROMPER Other indication->CTOR Date required:-20231017 FFP # of Units:-2-Units Reasons:-Other (Specify)} Ayden Alan MD BLOOD BANK PRODUCT ORDERABLES Final Result Performing Organization Address [facility] de Phone Number [facility] [address] [facility] [place] [place] [address] * Prepare platelets: 1 Units (10/17/2023 9:12 AM TROMPER) Product code [id number] Unit Number [id number]- A [facility] Product Blood Type BPOS [facility] Dispense Status PRESUMED TRANSFUSED [facility] Blood (Blood, Venous) 10/17/2023 9:12 AM TROMPER Narrative [facility] - 10/17/2023 10:15 PM TROMPER Other indication->CTOR Are special requirements needed? (all products are leukoreduced)->No Date required:-20231017 PLT # of Units:-1-Units Reasons:-Other (Specify)} Ayden Alan MD BLOOD BANK PRODUCT ORDERABLES Final Result Performing Organization Address [facility] Co de Phone Number [facility] [address] [facility] [place] [place] [address] * POC Activated Clotting Time, High Range (10/17/2023 8:19 AM TROMPER) [facility] ACT 97 87 - 138 sec [facility] Blood 10/17/2023 8:19 AM TROMPER 10/17/2023 8:19 AM TROMPER us Jaqueline Valero MD LAB BLOOD ORDERABLES Final Result Performing Organization Address [facility] Co de Phone Number [facility] [address] [facility] [place] [place] [address] * (ABNORMAL) POCT glucose (10/17/2023 7:47 AM TROMPER) [facility] Glucose, POC 279(H) 70 - 140 mg/dL [facility] Comment: For Glucose values <35 mg/dl when Hematocrit is >60 mg/dl,the test may not accurately detect significant hypoglycemia,and testing in the Laboratory should be considered if clinically indicated. Blood 10/17/2023 7:47 AM TROMPER 10/17/2023 7:47 AM TROMPER us Jovani Kat DO LAB POCT ORDERABLES - DE VICE Final Result Performing Organization Address [facility] Co de Phone Number [facility] [address] [place] [place] [address] * (ABNORMAL) POCT glucose (10/17/2023 5:50 AM TROMPER) [facility] Glucose, POC 307(H) 70 - 140 mg/dL [facility] Comment: For Glucose values <35 mg/dl when Hematocrit is >60 mg/dl,the test may not accurately detect significant hypoglycemia,and testing in the Laboratory should be considered if clinically indicated. Blood 10/17/2023 5:50 AM TROMPER 10/17/2023 5:50 AM TROMPER us Frank Cody MD LAB POCT ORDERABLES - DEVICE Fin al Result [facility] [address] Department [place] [address] * US Carotids (10/17/2023 5:10 AM TROMPER) Anatomical Region Laterality Modality Vascular Bilateral Ultrasound 10/17/2023 1:01 PM TROMPER Impressions 10/17/2023 1:01 PM TROMPER 1) ??Plaquing of the right internal carotid [...] Conference. Electronically signed by: Ana Pastor MD Narrative 10/17/2023 1:01 PM TROMPER DATE:10/17/2023 4:30 AM EXAM: Duplex imaging of [...] * (ABNORMAL) POCT glucose (10/17/2023 2:29 AM TROMPER) Glucose, POC 288(H) 70 - 140 mg/dL [facility] Comment: For Glucose values <35 mg/dl when Hematocrit is >60 mg/dl,the test may not accurately detect significant hypoglycemia,and testing in the Laboratory should be considered if clinically indicated. Blood 10/17/2023 2:29 AM TROMPER 10/17/2023 2:29 AM TROMPER Frank Cody MD LAB POCT ORDERABLES - DEVICE Fin al Result Performing Organization Address [facility] Co de Phone Number [facility] [address] Department [facility] [place], [place] [id number] * (ABNORMAL) POCT glucose (10/17/2023 12:51 AM TROMPER) Glucose, POC 242(H) 70 - 140 mg/dL [facility] Comment: For Glucose values <35 mg/dl when Hematocrit is >60 mg/dl,the test may not accurately detect significant hypoglycemia,and testing in the Laboratory should be considered if clinically indicated. Blood 10/17/2023 12:5 1 AM TROMPER 10/17/2023 12:51 AM TROMPER Frank Cody MD LAB POCT ORDERABLES - DEVICE Fin al Result Performing Organization Address City/[facility]/ZIP Co de Phone Number [facility] [address] Department of [employer] [place], [place] [id number] * (ABNORMAL) Differential, auto (10/17/2023 12:29 AM TROMPER) Neutrophil abs 6.4 1.5 - 6.5 K/cumm [facility] Imm gran abs 0.2(H) 0.0 - 0.1 K/cumm [facility] Lymphocyte abs 1.6 0.8 - 3.3 K/cumm [facility] Monocyte abs 1.1(H) 0.2 - 0.8 K/cumm [facility] Eosinophil abs 0.3 0.0 - 0.5 K/cumm [facility] Basophil abs 0.0 0.0 - 0.1 K/cumm [facility] Neutrophil pct 66.0 % [facility] Comment: Interpretive Data Percent cell count reference ranges are not reported, since discordance with absolute values may lead to misinterpretation of CBC data. Current Interpretive Data was last revised on 2017. Imm gran pct 2.1 % [facility] Comment: Interpretive Data Percent cell count reference ranges are not reported, since discordance with absolute values may lead to misinterpretation of CBC data. Current Interpretive Data was last revised on 2017. Lymphocyte pct 16.8 % [facility] Comment: Interpretive Data Percent cell count reference ranges are not reported, since discordance with absolute values may lead to misinterpretation of CBC data. Current Interpretive Data was last revised on 2017. Monocyte pct 11.6 % [facility] Comment: Interpretive Data Percent cell count reference ranges are not reported, since discordance with absolute values may lead to misinterpretation of CBC data. Current Interpretive Data was last revised on 2017. Eosinophil pct 3.1 % [facility] Comment: Interpretive Data Percent cell count reference ranges are not reported, since discordance with absolute values may lead to misinterpretation of CBC data. Current Interpretive Data was last revised on 2017. Basophil pct 0.4 % [facility] Comment: Interpretive Data Percent cell count reference ranges are not reported, since discordance with absolute values may lead to misinterpretation of CBC data. Current Interpretive Data was last revised on 2017. Blood 10/17/2023 12:2 9 AM TROMPER 10/17/2023 12:42 AM TROMPER us Vinay Pratt DO LAB BLOOD ORDERABLES F inal Result [facility] [address] Department [place] [address] * (ABNORMAL) aPTT (10/17/2023 12:29 AM TROMPER) [facility] aPTT 92(H) 28 - 38 sec [facility] Comment: Interpretive Data Heparin therapeutic range: 66.0 - 100.0 seconds. Range based on correlation with therapeutic heparin activity range of 0.3 - 0.7 Units/mL. Current interpretive data was last revised on 2023. Blood 10/17/2023 12:2 9 AM TROMPER 10/17/2023 12:43 AM TROMPER Frank Cody MD LAB BLOOD ORDERABLES Final Resul t [facility] [address] Department [place] [address] * (ABNORMAL) CBC with auto differential (10/17/2023 12:29 AM TROMPER) [facility] WBC 9.7 3.8 - 9.9 K/cumm [facility] Hgb 9.0(L) 13.0 - 17.5 g/dL [facility] Hct 27.4(L) 38.9 - 50.3 % [facility] Plt 289 150 - 400 K/cumm [facility] MPV 10.7 9.1 - 12.3 fL [facility] RBC 3.04(L) 4.30 - 5.80 M/cumm [facility] MCV 90.1 81.3 - 96.4 fL [facility] MCH 29.6 27.1 - 33.3 pg [facility] MCHC 32.8 32.3 - 35.7 g/dL [facility] RDW CV 14.7 11.1 - 14.9 % [facility] RDW SD 46.4 35.7 - 48.1 fL [facility] NRBC abs 0.03(H) 0.00 - 0.01 K/cumm [facility] Blood 10/17/2023 12:2 9 AM TROMPER 10/17/2023 12:42 AM TROMPER Vinay Pratt DO LAB BLOOD ORDERABLES F inal Result Performing Organization Address [facility] Co de Phone Number [facility] [address] Department of Laboratories [place], [place] [phone] * Type and screen (10/16/2023 7:51 PM TROMPER) Maribel, indirect Negative ABO Rh A Positive [facility] Blood 10/16/2023 7:51 PM TROMPER 10/16/2023 8:09 PM TROMPER Result [facility] Frank Cody MD LAB BLOOD BANK TEST ORDERABLES F inal Result Performing Organization Address [facility] de Phone Number [facility] [address] [place] [place] [address] * POCT glucose (10/16/2023 7:49 PM TROMPER) Glucose, POC 114 70 - 140 mg/dL [facility] Comment: For Glucose values <35 mg/dl when Hematocrit is >60 mg/dl,the test may not accurately detect significant hypoglycemia,and testing in the Laboratory should be considered if clinically indicated. Blood 10/16/2023 7:49 PM TROMPER 10/16/2023 7:49 PM TROMPER Frank Cody MD LAB POCT ORDERABLES - DEVICE Fin al Result Performing Organization Address [facility] de Phone Number [facility] [address] Department [place] [address] * POCT glucose (10/16/2023 5:35 PM TROMPER) Glucose, POC 76 70 - 140 mg/dL [facility] Comment: For Glucose values <35 mg/dl when Hematocrit is >60 mg/dl,the test may not accurately detect significant hypoglycemia,and testing in the Laboratory should be considered if clinically indicated. Blood 10/16/2023 5:3 5 PM TROMPER 10/16/2023 5:35 PM TROMPER us Frank Cody MD LAB POCT ORDERABLES - DEVICE Fin al Result [facility] [address] Department [place] [address] * TRANSTHORACIC ECHO (TTE) COMPLETE W DOPPLER/CF W CONTRAST (10/16/2023 4:47 PM TROMPER) Anatomical Region Laterality Modality Ultrasound 10/16/2023 11:3 9 AM TROMPER Narrative 10/16/2023 5:02 PM TROMPER [facility] [address] [place] [address] ECHOCARDIOGRAM Patient Name: JUVENAL GARVIN C : 1970 Study Date: 10/16/2023 11:39:54 AM Gender: M Tech: Location: [id number] Ref Provider: GUERLINE RODRIGUEZ ?Height(Cm): 178 BSA: 2.5 Weight(Kg): 126.1 BP: 125/75 ?Order Provider: GUERLINE RODRIGUEZ - PROCEDURES: Echocardiographic Report: Transthoracic Echocardiogram with 2D, M-Mode, Spectral and Color Flow Doppler examination and administration of intravenous contrast. INDICATIONS: Coronary artery disease, [place] vessel. Measurements: 2D/M Mode ? Doppler Measurement [...] regurgitation. Electronically Signed By: Dimitrios Ames MD, [facility] 2023-10-16 17:01:58 TROMPER Procedure Note Dimitrios mAes MD - 10/16/[address] [facility] [address] [place] [address] ECHOCARDIOGRAM Patient Name: JUVENAL GARVIN C : 1970 Study Date: 10/16/2023 11:39:54 AM Gender: M Tech: Location: [id number] Ref Provider: GUERLINE RODRIGUEZ Height(Cm): 178 BSA: 2.5 Weight(Kg): 126.1 BP: 125/75 Order Provider: GUERLINE RODRIGUEZ - PROCEDURES: Echocardiographic Report: Transthoracic Echocardiogram with 2D, M-Mode, Spectral and Color FlowDoppler examination and administration of intravenous contrast. INDICATIONS: Coronary artery disease, [place] vessel. Measurements: 2D/M ModeDoppler Measurement Value Normal [...] tricuspidregurgitation. Electronically Signed By: Dimitrios Ames MD, [facility] 2023-10-16 17:01:58 TROMPER us Guerline GRACE CV ECHO PROCEDURES Final Res ult * (ABNORMAL) aPTT (10/16/2023 3:50 PM TROMPER) aPTT 73(H) 28 - 38 sec [facility] Comment: Interpretive Data Heparin therapeutic range: 66.0 - 100.0 seconds. Range based on correlation with therapeutic heparin activity range of 0.3 - 0.7 Units/mL. Current interpretive data was last revised on 2023. Blood 10/16/2023 3:50 PM TROMPER 10/16/2023 3:50 PM TROMPER us Frank Cody MD LAB BLOOD ORDERABLES Final Resul t [facility] [address] Department of Laboratories [place], [place] [id number] * (ABNORMAL) Lipid panel (10/16/2023 3:44 PM TROMPER) Cholesterol 89 30 - 199 mg/dL [facility] Comment: Interpretive Data Ages < [...] revised on 2018. Triglycerides 106 <=149 mg/dL [facility] Comment: Interpretive Data Ages < [...] revised on 2018. HDL 34(L) >=40 mg/dL [facility] Comment: Interpretive Data Ages < [...] on 2018. LDL, calculated 34 <=129 mg/dL [facility] Comment: Interpretive Data Ages < [...] revised on 2018. Non-HDL Cholesterol 55 mg/dL [facility] Comment: Interpretive Data Ages < [...] last revised on 2018. Chol/HDL ratio 3 [facility] Blood 10/16/2023 3:44 PM TROMPER 10/16/2023 3:53 PM TROMPER us Jaqueline Valero MD LAB BLOOD ORDERABLES Final Result [facility] [address] Department [place] [address] * (ABNORMAL) Hemoglobin A1c (10/16/2023 3:27 PM TROMPER) Hgb A1C 8.1(H) 4.0 - 5.6 % [facility] Estimated Average Glucose 186 mg/dL [facility] Comment: The ADA recommends reporting an estimated Average Glucose (eAG) with all Hemoglobin A1c results using the equation derived from a study of 507 normal and diabetic adults. ??Minority populations were underrepresented and children were not included. ?? (Diabetes Care 31:9555-9081, 2008). ??The eAG is not equivalent to a fasting glucose. Blood 10/16/2023 3:27 PM TROMPER 10/16/2023 3:27 PM TROMPER Jaqueline Valero MD LAB BLOOD ORDERABLES Final Result [facility] [address] Department [place] [address] * XR Chest PA Lateral 2 View (10/16/2023 3:12 PM TROMPER) Anatomical Region Laterality Modality Body, Chest N/A Computed Radiogr aphy 10/16/2023 3:15 PM TROMPER Impressions 10/16/2023 3:15 PM TROMPER Small bilateral pleural effusions with mild bibasilar atelectasis. Small volume fluid tracks into the right minor fissure. ??Mild pulmonary edema. ??No pneumothorax. ??Heart size and mediastinal contours are unchanged. Electronically signed by: Salina Garnica M.D. Narrative 10/16/2023 3:15 PM TROMPER EXAMINATION: XR CHEST PA LATERAL 2 VIEWS [...] * ECG 12 lead (10/16/2023 2:17 PM TROMPER) 10/16/2023 2:17 PM TROMPER Narrative [facility] - 10/16/2023 9:14 PM TROMPER Vent Rate: 61 bpm RR Interval: 981 msec [place] Interval: 235 msec QRS Duration: 150 msec QT Interval: 447 msec QTC Interval: 449 msec P-R-T [place]: 70 - -11 - 134 degrees IMPRESSION: SINUS RHYTHM WITH FIRST DEGREE AV BLOCK LEFT BUNDLE BRANCH BLOCK ABNORMAL ECG Electronically Signed By: Payam White MD Jaqueline Valero MD ECG ORDERABLES Final Resu lt Performing Organization Address [facility] Co de Phone Number [facility] * Prepare RBC: 3 Units (10/16/2023 2:04 PM TROMPER) [facility] Product code [id number] [facility] Unit Number [id number] W [facility] Product Blood Type APOS [facility] Dispense Status PRESUMED TRANSFUSED [facility] Product code [id number] Unit Number [id number] * [facility] Product [facility] Dispense Status PRESUMED TRANSFUSED [facility] Product code [id number] [facility] Unit Number [id number] M [facility] Product Blood Type [facility] Dispense Status RETURNED [facility] Blood 10/16/2023 2:04 PM TROMPER Narrative [facility] - 10/19/2023 7:08 AM TROMPER Specify Procedure:->cabg/aortic valve replacement Are special requirements needed? (All products are leukoreduced and CMV- safe)- >No Date required:-20231017 LRRBC # of [id number] Reasons:-Hold for procedure (specify procedure)} Jaqueline Valero MD BLOOD BANK PRODUCT ORDERAB LES Final Result Performing Organization Address [facility] Co de Phone Number [facility] [address] [place] [address] * POCT glucose (10/16/2023 12:22 PM TROMPER) [facility] Glucose, POC 74 70 - 140 mg/dL [facility] Comment: For Glucose values <35 mg/dl when Hematocrit is >60 mg/dl,the test may not accurately detect significant hypoglycemia,and testing in the Laboratory should be considered if clinically indicated. Blood 10/16/2023 12:2 2 PM TROMPER 10/16/2023 12:22 PM TROMPER us Frank Cody MD LAB POCT ORDERABLES - DEVICE Fin al Result Performing Organization Address [facility] [facility] de Phone Number [facility] [address] [facility] [place] [address] * (ABNORMAL) POCT glucose (10/16/2023 8:11 AM TROMPER) Glucose, POC 266(H) 70 - 140 mg/dL [facility] Comment: For Glucose values <35 mg/dl when Hematocrit is >60 mg/dl,the test may not accurately detect significant hypoglycemia,and testing in the Laboratory should be considered if clinically indicated. Blood 10/16/2023 8:11 AM TROMPER 10/16/2023 8:11 AM TROMPER us Frank Cody MD LAB POCT ORDERABLES - DEVICE Fin al Result Performing Organization Address [facility] de Phone Number [facility] [address] [facility] [employer] [place] [address] * (ABNORMAL) POCT glucose (10/16/2023 4:48 AM TROMPER) Glucose, POC 329(H) 70 - 140 mg/dL [facility] Comment: For Glucose values <35 mg/dl when Hematocrit is >60 mg/dl,the test may not accurately detect significant hypoglycemia,and testing in the Laboratory should be considered if clinically indicated. Blood 10/16/2023 4:48 AM TROMPER 10/16/2023 4:48 AM TROMPER us Frank Cody MD LAB POCT ORDERABLES - DEVICE Fin al Result Performing Organization Address [facility] de Phone Number [facility] [address] [facility] [employer] [place] [address] * (ABNORMAL) POCT glucose (10/16/2023 12:37 AM TROMPER) Glucose, POC 158(H) 70 - 140 mg/dL [facility] Comment: For Glucose values <35 mg/dl when Hematocrit is >60 mg/dl,the test may not accurately detect significant hypoglycemia,and testing in the Laboratory should be considered if clinically indicated. Blood 10/16/2023 12:3 7 AM TROMPER 10/16/2023 12:37 AM TROMPER us Frank Cody MD LAB POCT ORDERABLES - DEVICE Fin al Result [facility] [address] Department [place] [address] * (ABNORMAL) Differential, auto (10/16/2023 12:31 AM TROMPER) [facility] Neutrophil abs 4.5 1.5 - 6.5 K/cumm [facility] Imm gran abs 0.2(H) 0.0 - 0.1 K/cumm [facility] Lymphocyte abs 1.8 0.8 - 3.3 K/cumm [facility] Monocyte abs 1.0(H) 0.2 - 0.8 K/cumm [facility] Eosinophil abs 0.2 0.0 - 0.5 K/cumm [facility] Basophil abs 0.0 0.0 - 0.1 K/cumm [facility] Neutrophil pct 58.6 % [facility] Comment: Interpretive Data Percent cell count reference ranges are not reported, since discordance with absolute values may lead to misinterpretation of CBC data. Current Interpretive Data was last revised on 2017. Imm gran pct 2.1 % [facility] Comment: Interpretive Data Percent cell count reference ranges are not reported, since discordance with absolute values may lead to misinterpretation of CBC data. Current Interpretive Data was last revised on 2017. Lymphocyte pct 23.1 % [facility] Comment: Interpretive Data Percent cell count reference ranges are not reported, since discordance with absolute values may lead to misinterpretation of CBC data. Current Interpretive Data was last revised on 2017. Monocyte pct 13.2 % [facility] Comment: Interpretive Data Percent cell count reference ranges are not reported, since discordance with absolute values may lead to misinterpretation of CBC data. Current Interpretive Data was last revised on 2017. Eosinophil pct 2.5 % [facility] Comment: Interpretive Data Percent cell count reference ranges are not reported, since discordance with absolute values may lead to misinterpretation of CBC data. Current Interpretive Data was last revised on 2017. Basophil pct 0.5 % [facility] Comment: Interpretive Data Percent cell count reference ranges are not reported, since discordance with absolute values may lead to misinterpretation of CBC data. Current Interpretive Data was last revised on 2017. Blood 10/16/2023 12:3 1 AM TROMPER 10/16/2023 12:36 AM TROMPER Vinay Pratt DO LAB BLOOD ORDERABLES F inal Result Performing Organization Address [facility] Co de Phone Number [facility] [address] [facility] [place] [address] * (ABNORMAL) aPTT (10/16/2023 12:31 AM TROMPER) aPTT 80(H) 28 - 38 sec [facility] Comment: Interpretive Data Heparin therapeutic range: 66.0 - 100.0 seconds. Range based on correlation with therapeutic heparin activity range of 0.3 - 0.7 Units/mL. Current interpretive data was last revised on 2023. Blood 10/16/2023 12:3 1 AM TROMPER 10/16/2023 12:36 AM TROMPER Frank Cody MD LAB BLOOD ORDERABLES Final Resul t Performing Organization Address [facility]/ZIP Co de Phone Number [facility] [address] [facility] [place] [address] * (ABNORMAL) CBC with auto differential (10/16/2023 12:31 AM TROMPER) WBC 7.7 3.8 - 9.9 K/cumm [facility] Hgb 9.4(L) 13.0 - 17.5 g/dL [facility] Hct 29.7(L) 38.9 - 50.3 % [facility] Plt 330 150 - 400 K/cumm [facility] MPV 10.9 9.1 - 12.3 fL [facility] RBC 3.24(L) 4.30 - 5.80 M/cumm [facility] MCV 91.7 81.3 - 96.4 fL [facility] MCH 29.0 27.1 - 33.3 pg [facility] MCHC 31.6(L) 32.3 - 35.7 g/dL [facility] RDW CV 14.6 11.1 - 14.9 % [facility] RDW SD 47.2 35.7 - 48.1 fL [facility] NRBC abs 0.03(H) 0.00 - 0.01 K/cumm [facility] Blood 10/16/2023 12:3 1 AM TROMPER 10/16/2023 12:36 AM TROMPER Vinay Pratt DO LAB BLOOD ORDERABLES F inal Result [facility] [address] Department [place] [place] [address] * Check Sample (10/16/2023 12:27 AM TROMPER) Pathologist [facility] ABO Rh A Positive HCLL OTHER 10/16/2023 12:2 7 AM TROMPER 10/16/2023 2:18 PM TROMPER Frank Cody MD LAB BLOOD ORDERABLES Final Resul t [facility] [address] [place] [place] [address] * POCT glucose (10/15/2023 11:20 PM TROMPER) Glucose, POC 105 70 - 140 mg/dL [facility] Comment: For Glucose values <35 mg/dl when Hematocrit is >60 mg/dl,the test may not accurately detect significant hypoglycemia,and testing in the Laboratory should be considered if clinically indicated. Blood 10/15/2023 11:2 0 PM TROMPER 10/15/2023 11:20 PM TROMPER us Frank Cody MD LAB POCT ORDERABLES - DEVICE Fin al Result Performing Organization Address [facility] de Phone Number [facility] [address] [facility] [place] [employer] [place] [address] * POCT glucose (10/15/2023 11:01 PM TROMPER) Glucose, POC 93 70 - 140 mg/dL [facility] Comment: For Glucose values <35 mg/dl when Hematocrit is >60 mg/dl,the test may not accurately detect significant hypoglycemia,and testing in the Laboratory should be considered if clinically indicated. Glucose comment 1 Follow Protocol [facility] Blood 10/15/2023 11:0 1 PM TROMPER 10/15/2023 11:01 PM TROMPER Result [facility] us Frank Cody MD LAB POCT ORDERABLES - DEVICE Fin al Result Performing Organization Address [facility] de Phone Number [facility] [address] [facility] [employer] [place], [place] [id number] * POCT glucose (10/15/2023 10:45 PM TROMPER) Glucose, POC 84 70 - 140 mg/dL [facility] Comment: For Glucose values <35 mg/dl when Hematocrit is >60 mg/dl,the test may not accurately detect significant hypoglycemia,and testing in the Laboratory should be considered if clinically indicated. Glucose comment 1 Follow Protocol [facility] Blood 10/15/2023 10:4 5 PM TROMPER 10/15/2023 10:45 PM TROMPER us Frank Cody MD LAB POCT ORDERABLES - DEVICE Fin al Result Performing Organization Address [facility] de Phone Number [facility] [address] [facility] [employer] [place] [address] * (ABNORMAL) POCT glucose (10/15/2023 10:26 PM TROMPER) Glucose, POC 69(L) 70 - 140 mg/dL [facility] Comment: For Glucose values <35 mg/dl when Hematocrit is >60 mg/dl,the test may not accurately detect significant hypoglycemia,and testing in the Laboratory should be considered if clinically indicated. Blood 10/15/2023 10:2 6 PM TROMPER 10/15/2023 10:26 PM TROMPER Frank Cody MD LAB POCT ORDERABLES - DEVICE Fin al Result Performing Organization Address [facility] Co de Phone Number [facility] [address] [facility] [place] [employer] [place] [address] * POCT glucose (10/15/2023 8:12 PM TROMPER) Glucose, POC 73 70 - 140 mg/dL [facility] Comment: For Glucose values <35 mg/dl when Hematocrit is >60 mg/dl,the test may not accurately detect significant hypoglycemia,and testing in the Laboratory should be considered if clinically indicated. Blood 10/15/2023 8:12 PM TROMPER 10/15/2023 8:12 PM TROMPER Frank Cody MD LAB POCT ORDERABLES - DEVICE Fin al Result Performing Organization Address [facility] Co de Phone Number [facility] [address] [place] [employer] [place] [address] * POCT glucose (10/15/2023 5:10 PM TROMPER) Glucose, POC 72 70 - 140 mg/dL [facility] Comment: For Glucose values <35 mg/dl when Hematocrit is >60 mg/dl,the test may not accurately detect significant hypoglycemia,and testing in the Laboratory should be considered if clinically indicated. Blood 10/15/2023 5:10 PM TROMPER 10/15/2023 5:10 PM TROMPER us Frank Cody MD LAB POCT ORDERABLES - DEVICE Fin al Result Performing Organization Address [facility] de Phone Number [facility] [address] [facility] [employer] [place], [place] [id number] * (ABNORMAL) POCT glucose (10/15/2023 12:13 PM TROMPER) Glucose, POC 155(H) 70 - 140 mg/dL [facility] Comment: For Glucose values <35 mg/dl when Hematocrit is >60 mg/dl,the test may not accurately detect significant hypoglycemia,and testing in the Laboratory should be considered if clinically indicated. Blood 10/15/2023 12:1 3 PM TROMPER 10/15/2023 12:13 PM TROMPER us Frank Cody MD LAB POCT ORDERABLES - DEVICE Fin al Result Performing Organization Address [facility] de Phone Number [facility] [address] [facility] [employer] [place], [place] [id number] * (ABNORMAL) aPTT (10/15/2023 11:25 AM TROMPER) aPTT 59(H) 28 - 38 sec [facility] Comment: Interpretive Data Heparin therapeutic range: 66.0 - 100.0 seconds. Range based on correlation with therapeutic heparin activity range of 0.3 - 0.7 Units/mL. Current interpretive data was last revised on 2023. Blood 10/15/2023 11:2 5 AM TROMPER 10/15/2023 11:31 AM TROMPER us Frank Cody MD LAB BLOOD ORDERABLES Final Resul t Performing Organization Address [facility] Co de Phone Number [facility] [address] [facility] [employer] [place], [place] [id number] * CT Chest WO Contrast (10/15/2023 11:00 AM TROMPER) Anatomical Region Laterality Modality Body N/A Computed Tomogra phy 10/15/2023 11:5 8 AM TROMPER Impressions 10/15/2023 11:58 AM TROMPER 1. ??Small bilateral pleural effusions with mild bibasilar atelectasis. 2. ??Mildly enlarged likely reactive mediastinal lymph nodes. Attention on follow-up is recommended. Electronically signed by: Arjun Amador M.D. Narrative 10/15/2023 11:58 AM TROMPER EXAMINATION: ??Computed tomography of the chest without [...] * (ABNORMAL) POCT glucose (10/15/2023 7:56 AM TROMPER) Glucose, POC 249(H) 70 - 140 mg/dL [facility] Comment: For Glucose values <35 mg/dl when Hematocrit is >60 mg/dl,the test may not accurately detect significant hypoglycemia,and testing in the Laboratory should be considered if clinically indicated. Blood 10/15/2023 7:56 AM TROMPER 10/15/2023 7:56 AM TROMPER Frank Cody MD LAB POCT ORDERABLES - DEVICE Fin al Result Performing Organization Address [facility]/ZIP Co de Phone Number [facility] [address] [employer] [place] [address] * (ABNORMAL) POCT glucose (10/15/2023 5:34 AM TROMPER) Glucose, POC 338(H) 70 - 140 mg/dL [facility] Comment: For Glucose values <35 mg/dl when Hematocrit is >60 mg/dl,the test may not accurately detect significant hypoglycemia,and testing in the Laboratory should be considered if clinically indicated. Glucose comment 1 RN/MD Notified [facility] Blood 10/15/2023 5:34 AM TROMPER 10/15/2023 5:34 AM TROMPER Frank Cody MD LAB POCT ORDERABLES - DEVICE Fin al Result [facility] [address] [place] [address] * (ABNORMAL) POCT glucose (10/15/2023 4:35 AM TROMPER) Glucose, POC 344(H) 70 - 140 mg/dL [facility] Comment: For Glucose values <35 mg/dl when Hematocrit is >60 mg/dl,the test may not accurately detect significant hypoglycemia,and testing in the Laboratory should be considered if clinically indicated. Glucose comment 1 RN/MD Notified [facility] Blood 10/15/2023 4:35 AM TROMPER 10/15/2023 4:35 AM TROMPER us Frank Cody MD LAB POCT ORDERABLES - DEVICE Fin al Result Performing Organization Address [facility]/ZIP Co de Phone Number [facility] [address] [place] [address] * (ABNORMAL) aPTT (10/15/2023 4:27 AM TROMPER) aPTT 75(H) 28 - 38 sec [facility] Comment: Interpretive Data Heparin therapeutic range: 66.0 - 100.0 seconds. Range based on correlation with therapeutic heparin activity range of 0.3 - 0.7 Units/mL. Current interpretive data was last revised on 2023. Blood 10/15/2023 4:27 AM TROMPER 10/15/2023 4:38 AM TROMPER Narrative [facility] - 10/15/2023 4:55 AM TROMPER Draw STAT PTT 6 hrs after initiation of heparin infusion, draw STAT PTT 6 hours after each dose change, and every 6 hours until 2 consecutive PTTs are within therapeutic range. Once two consecutive PTT's are therapeutic (66-100 seconds), then draw PTT every AM until heparin is discontinued. us Vinay Pratt DO LAB BLOOD ORDERABLES F inal Result Performing Organization Address [facility]/ZIP Co de Phone Number [facility] [address] [place] [place] [address] * (ABNORMAL) POCT glucose (10/15/2023 1:30 AM TROMPER) Glucose, POC 334(H) 70 - 140 mg/dL [facility] Comment: For Glucose values <35 mg/dl when Hematocrit is >60 mg/dl,the test may not accurately detect significant hypoglycemia,and testing in the Laboratory should be considered if clinically indicated. Blood 10/15/2023 1:30 AM TROMPER 10/15/2023 1:30 AM TROMPER us Frank Cody MD LAB POCT ORDERABLES - DEVICE Fin al Result [facility] [address] Department [place] [address] * (ABNORMAL) Renal function panel (10/15/2023 1:06 AM TROMPER) [facility] Sodium 130(L) 135 - 145 mmol/L [facility] Potassium, pl 4.3 3.3 - 4.9 mmol/L [facility] Chloride 89(L) 97 - 110 mmol/L [facility] CO2 22 22 - 32 mmol/L [facility] Anion gap 19(H) 2 - 15 mmol/L [facility] BUN 78(H) 6 - 25 mg/dL [facility] Creatinine 10.57(H) 0.80 - 1.30 mg/dL [facility] Glucose 308(H) 70 - 199 mg/dL [facility] Comment: Interpretive Data Fasting glucose [...] 2022. Calcium 8.2(L) 8.5 - 10.3 mg/dL [facility] Phosphorus, pl 5.7(H) 2.3 - 4.5 mg/dL [facility] Albumin 3.3(L) 3.5 - 5.0 g/dL [facility] Blood 10/15/2023 1:06 AM TROMPER 10/15/2023 1:20 AM TROMPER Frank Cody MD LAB BLOOD ORDERABLES Final Resul t [facility] [address] Department [place] [address] * eGFR (10/15/2023 1:06 AM TROMPER) eGFR 5 mL/min/1. 73 m2 [facility] Comment: Interpretive Data Reference Interval [...] last reviewed 2021. Blood 10/15/2023 1:06 AM TROMPER 10/15/2023 1:20 AM TROMPER us Frank Cody MD LAB BLOOD ORDERABLES Final Resul t Performing Organization Address [facility] Co de Phone Number [facility] [address] [facility] [employer] [place] [address] * (ABNORMAL) aPTT (10/15/2023 1:06 AM TROMPER) aPTT 69(H) 28 - 38 sec [facility] Comment: Interpretive Data Heparin therapeutic range: 66.0 - 100.0 seconds. Range based on correlation with therapeutic heparin activity range of 0.3 - 0.7 Units/mL. Current interpretive data was last revised on 2023. Blood 10/15/2023 1:06 AM TROMPER 10/15/2023 1:20 AM TROMPER us Frank Cody MD LAB BLOOD ORDERABLES Final Resul t Performing Organization Address [facility] de Phone Number [facility] [address] [facility] [place] [place] [address] * (ABNORMAL) Differential, auto (10/15/2023 1:06 AM TROMPER) Neutrophil abs 4.3 1.5 - 6.5 K/cumm [facility] Imm gran abs 0.1 0.0 - 0.1 K/cumm [facility] Lymphocyte abs 2.2 0.8 - 3.3 K/cumm [facility] Monocyte abs 0.9(H) 0.2 - 0.8 K/cumm [facility] Eosinophil abs 0.1 0.0 - 0.5 K/cumm [facility] Basophil abs 0.0 0.0 - 0.1 K/cumm [facility] Neutrophil pct 56.6 % [facility] Comment: Interpretive Data Percent cell count reference ranges are not reported, since discordance with absolute values may lead to misinterpretation of CBC data. Current Interpretive Data was last revised on 2017. Imm gran pct 1.2 % [facility] Comment: Interpretive Data Percent cell count reference ranges are not reported, since discordance with absolute values may lead to misinterpretation of CBC data. Current Interpretive Data was last revised on 2017. Lymphocyte pct 28.4 % [facility] Comment: Interpretive Data Percent cell count reference ranges are not reported, since discordance with absolute values may lead to misinterpretation of CBC data. Current Interpretive Data was last revised on 2017. Monocyte pct 12.0 % [facility] Comment: Interpretive Data Percent cell count reference ranges are not reported, since discordance with absolute values may lead to misinterpretation of CBC data. Current Interpretive Data was last revised on 2017. Eosinophil pct 1.5 % [facility] Comment: Interpretive Data Percent cell count reference ranges are not reported, since discordance with absolute values may lead to misinterpretation of CBC data. Current Interpretive Data was last revised on 2017. Basophil pct 0.3 % [facility] Comment: Interpretive Data Percent cell count reference ranges are not reported, since discordance with absolute values may lead to misinterpretation of CBC data. Current Interpretive Data was last revised on 2017. Blood 10/15/2023 1:06 AM TROMPER 10/15/2023 1:20 AM TROMPER Vinay Pratt DO LAB BLOOD ORDERABLES F inal Result [facility] [address] [place] [address] * (ABNORMAL) Iron profile w/ IBC (10/15/2023 1:06 AM TROMPER) Iron 72 50 - 150 mcg/dL [facility] TIBC 205(L) 250 - 400 mcg/dL [facility] Transferrin saturation 35 20 - 50 % [facility] Blood 10/15/2023 1:06 AM TROMPER 10/15/2023 1:20 AM TROMPER us Fernandez Carranza MD LAB BLOOD ORDERABLES Final Resu lt [facility] [address] Department [place] [place] [address] * (ABNORMAL) Ferritin (10/15/2023 1:06 AM TROMPER) [facility] Ferritin 1,322(H) 30 - 400 ng/mL [facility] Blood 10/15/2023 1:06 AM TROMPER 10/15/2023 1:20 AM TROMPER us Fernandez Carranza MD LAB BLOOD ORDERABLES Final Resu lt Performing Organization Address [facility]/ZIP Co de Phone Number [facility] [address] [place] [address] * (ABNORMAL) CBC with auto differential (10/15/2023 1:06 AM TROMPER) [facility] WBC 7.6 3.8 - 9.9 K/cumm [facility] Hgb 9.4(L) 13.0 - 17.5 g/dL [facility] Hct 29.4(L) 38.9 - 50.3 % [facility] Plt 375 150 - 400 K/cumm [facility] MPV 11.0 9.1 - 12.3 fL [facility] RBC 3.23(L) 4.30 - 5.80 M/cumm [facility] MCV 91.0 81.3 - 96.4 fL [facility] MCH 29.1 27.1 - 33.3 pg [facility] MCHC 32.0(L) 32.3 - 35.7 g/dL [facility] RDW CV 14.0 11.1 - 14.9 % [facility] RDW SD 45.5 35.7 - 48.1 fL [facility] NRBC abs 0.02(H) 0.00 - 0.01 K/cumm [facility] Blood 10/15/2023 1:06 AM TROMPER 10/15/2023 1:20 AM TROMPER Vinay Pratt DO LAB BLOOD ORDERABLES F inal Result Performing Organization Address City/[facility]/ZIP Co de Phone Number [facility] [address] [place] [place] [address] * (ABNORMAL) aPTT (10/14/2023 8:41 PM TROMPER) aPTT 75(H) 28 - 38 sec [facility] Comment: Interpretive Data Heparin therapeutic range: 66.0 - 100.0 seconds. Range based on correlation with therapeutic heparin activity range of 0.3 - 0.7 Units/mL. Current interpretive data was last revised on 2023. Blood 10/14/2023 8:41 PM TROMPER 10/14/2023 8:52 PM TROMPER us Frank Cody MD LAB BLOOD ORDERABLES Final Resul t Performing Organization Address [facility] Co de Phone Number [facility] [address] [place] [address] * (ABNORMAL) POCT glucose (10/14/2023 8:24 PM TROMPER) Glucose, POC 232(H) 70 - 140 mg/dL [facility] Comment: For Glucose values <35 mg/dl when Hematocrit is >60 mg/dl,the test may not accurately detect significant hypoglycemia,and testing in the Laboratory should be considered if clinically indicated. Blood 10/14/2023 8:24 PM TROMPER 10/14/2023 8:24 PM TROMPER us Frank Cody MD LAB POCT ORDERABLES - DEVICE Fin al Result Performing Organization Address [facility] Co de Phone Number [facility] [address] [place] [address] * (ABNORMAL) POCT glucose (10/14/2023 5:28 PM TROMPER) Glucose, POC 217(H) 70 - 140 mg/dL [facility] Comment: For Glucose values <35 mg/dl when Hematocrit is >60 mg/dl,the test may not accurately detect significant hypoglycemia,and testing in the Laboratory should be considered if clinically indicated. Blood 10/14/2023 5:28 PM TROMPER 10/14/2023 5:28 PM TROMPER Result [facility] Frank Cody MD LAB POCT ORDERABLES - DEVICE Fin al Result Performing Organization Address [facility] Co de Phone Number [facility] [address] Department [place] [address] * (ABNORMAL) aPTT (10/14/2023 2:39 PM TROMPER) aPTT 43(H) 28 - 38 sec [facility] Comment: Interpretive Data Heparin therapeutic range: 66.0 - 100.0 seconds. Range based on correlation with therapeutic heparin activity range of 0.3 - 0.7 Units/mL. Current interpretive data was last revised on 2023. Blood 10/14/2023 2:39 PM TROMPER 10/14/2023 2:39 PM TROMPER Abelardo Randle MD LAB BLOOD ORDERABLES Final Result Performing Organization Address [facility] de Phone Number [facility] [address] [facility] [place] [place] [address] * POCT glucose (10/14/2023 12:15 PM TROMPER) [facility] Glucose, POC 140 70 - 140 mg/dL [facility] Comment: For Glucose values <35 mg/dl when Hematocrit is >60 mg/dl,the test may not accurately detect significant hypoglycemia,and testing in the Laboratory should be considered if clinically indicated. Blood 10/14/2023 12:1 5 PM TROMPER 10/14/2023 12:15 PM TROMPER Result [facility] Frank Cody MD LAB POCT ORDERABLES - DEVICE Fin al Result Performing Organization Address [facility] Co de Phone Number [facility] [address] Department [place] [employer] [place] [address] * POCT glucose (10/14/2023 11:06 AM TROMPER) Glucose, POC 138 70 - 140 mg/dL [facility] Comment: For Glucose values <35 mg/dl when Hematocrit is >60 mg/dl,the test may not accurately detect significant hypoglycemia,and testing in the Laboratory should be considered if clinically indicated. Blood 10/14/2023 11:0 6 AM TROMPER 10/14/2023 11:06 AM TROMPER us Frank Cody MD LAB POCT ORDERABLES - DEVICE Fin al Result Performing Organization Address [facility] de Phone Number [facility] [address] Department [place] [address] * POCT glucose (10/14/2023 8:34 AM TROMPER) Glucose, POC 134 70 - 140 mg/dL [facility] Comment: For Glucose values <35 mg/dl when Hematocrit is >60 mg/dl,the test may not accurately detect significant hypoglycemia,and testing in the Laboratory should be considered if clinically indicated. Blood 10/14/2023 8:34 AM TROMPER 10/14/2023 8:34 AM TROMPER us Frank Cody MD LAB POCT ORDERABLES - DEVICE Fin al Result Performing Organization Address [facility] de Phone Number [facility] [address] Department [place] [address] * (ABNORMAL) POCT glucose (10/14/2023 5:56 AM TROMPER) Glucose, POC 259(H) 70 - 140 mg/dL [facility] Comment: For Glucose values <35 mg/dl when Hematocrit is >60 mg/dl,the test may not accurately detect significant hypoglycemia,and testing in the Laboratory should be considered if clinically indicated. Blood 10/14/2023 5:56 AM TROMPER 10/14/2023 5:56 AM TROMPER us Frank Cody MD LAB POCT ORDERABLES - DEVICE Fin al Result Performing Organization Address [facility]/State/ZIP Co de Phone Number [facility] [address] Department [place] [address] * eGFR (10/14/2023 5:53 AM TROMPER) eGFR 5 mL/min/1. 73 m2 [facility] Comment: Interpretive Data Reference Interval [...] last reviewed 2021. Blood 10/14/2023 5:53 AM TROMPER 10/14/2023 6:04 AM TROMPER us Vinay Pratt DO LAB BLOOD ORDERABLES F inal Result [facility] [address] Department of Laboratories [place], [place] [id number] * (ABNORMAL) aPTT (10/14/2023 5:53 AM TROMPER) aPTT 56(H) 28 - 38 sec [facility] Comment: Interpretive Data Heparin therapeutic range: 66.0 - 100.0 seconds. Range based on correlation with therapeutic heparin activity range of 0.3 - 0.7 Units/mL. Current interpretive data was last revised on 2023. Blood 10/14/2023 5:53 AM TROMPER 10/14/2023 6:04 AM TROMPER Vinay Pratt DO LAB BLOOD ORDERABLES F inal Result [facility] [address] Department [place] [address] * (ABNORMAL) Basic metabolic panel (10/14/2023 5:53 AM TROMPER) Sodium 131(L) 135 - 145 mmol/L [facility] Potassium, pl 4.3 3.3 - 4.9 mmol/L [facility] Chloride 92(L) 97 - 110 mmol/L [facility] CO2 23 22 - 32 mmol/L [facility] Anion gap 16(H) 2 - 15 mmol/L [facility] BUN 75(H) 6 - 25 mg/dL [facility] Creatinine 10.22(H) 0.80 - 1.30 mg/dL [facility] Glucose 287(H) 70 - 199 mg/dL [facility] Comment: Interpretive Data Fasting glucose [...] 2022. Calcium 9.0 8.5 - 10.3 mg/dL [facility] Blood 10/14/2023 5:53 AM TROMPER 10/14/2023 6:04 AM TROMPER Vinay Pratt DO LAB BLOOD ORDERABLES F inal Result Performing Organization Address [facility] Co de Phone Number [facility] [address] [place], [place] [id number] * (ABNORMAL) POCT glucose (10/14/2023 3:58 AM TROMPER) Glucose, POC 382(H) 70 - 140 mg/dL [facility] Comment: For Glucose values <35 mg/dl when Hematocrit is >60 mg/dl,the test may not accurately detect significant hypoglycemia,and testing in the Laboratory should be considered if clinically indicated. Blood 10/14/2023 3:58 AM TROMPER 10/14/2023 3:58 AM TROMPER Frank Cody MD LAB POCT ORDERABLES - DEVICE Fin al Result Performing Organization Address [facility] de Phone Number [facility] [address] [facility] [employer] [place], [place] [id number] * (ABNORMAL) POCT glucose (10/14/2023 3:04 AM TROMPER) Glucose, POC 378(H) 70 - 140 mg/dL [facility] Comment: For Glucose values <35 mg/dl when Hematocrit is >60 mg/dl,the test may not accurately detect significant hypoglycemia,and testing in the Laboratory should be considered if clinically indicated. Blood 10/14/2023 3:04 AM TROMPER 10/14/2023 3:04 AM TROMPER Frank Cody MD LAB POCT ORDERABLES - DEVICE Fin al Result Performing Organization Address [facility] de Phone Number [facility] [address] [place], [place] [phone] * (ABNORMAL) POCT glucose (10/14/2023 2:05 AM TROMPER) Glucose, POC 425(H) 70 - 140 mg/dL [facility] Comment: For Glucose values <35 mg/dl when Hematocrit is >60 mg/dl,the test may not accurately detect significant hypoglycemia,and testing in the Laboratory should be considered if clinically indicated. Blood 10/14/2023 2:05 AM TROMPER 10/14/2023 2:05 AM TROMPER us Frank Cody MD LAB POCT ORDERABLES - DEVICE Fin al Result [facility] [address] Department [place] [address] * eGFR (10/14/2023 1:04 AM TROMPER) eGFR 5 mL/min/1. 73 m2 [facility] Comment: Interpretive Data Reference Interval [...] last reviewed 2021. Blood 10/14/2023 1:04 AM TROMPER 10/14/2023 1:36 AM TROMPER us Vinay Pratt DO LAB BLOOD ORDERABLES F inal Result [facility] [address] Department [place] [address] * (ABNORMAL) Differential, auto (10/14/2023 1:04 AM TROMPER) Neutrophil abs 4.8 1.5 - 6.5 K/cumm [facility] Imm gran abs 0.1 0.0 - 0.1 K/cumm [facility] Lymphocyte abs 0.7(L) 0.8 - 3.3 K/cumm [facility] Monocyte abs 0.7 0.2 - 0.8 K/cumm [facility] Eosinophil abs 0.0 0.0 - 0.5 K/cumm [facility] Basophil abs 0.0 0.0 - 0.1 K/cumm [facility] Neutrophil pct 77.4 % [facility] Comment: Interpretive Data Percent cell count reference ranges are not reported, since discordance with absolute values may lead to misinterpretation of CBC data. Current Interpretive Data was last revised on 2017. Imm gran pct 1.0 % [facility] Comment: Interpretive Data Percent cell count reference ranges are not reported, since discordance with absolute values may lead to misinterpretation of CBC data. Current Interpretive Data was last revised on 2017. Lymphocyte pct 10.4 % [facility] Comment: Interpretive Data Percent cell count reference ranges are not reported, since discordance with absolute values may lead to misinterpretation of CBC data. Current Interpretive Data was last revised on 2017. Monocyte pct 11.2 % [facility] Comment: Interpretive Data Percent cell count reference ranges are not reported, since discordance with absolute values may lead to misinterpretation of CBC data. Current Interpretive Data was last revised on 2017. Eosinophil pct 0.0 % [facility] Comment: Interpretive Data Percent cell count reference ranges are not reported, since discordance with absolute values may lead to misinterpretation of CBC data. Current Interpretive Data was last revised on 2017. Basophil pct 0.0 % [facility] Comment: Interpretive Data Percent cell count reference ranges are not reported, since discordance with absolute values may lead to misinterpretation of CBC data. Current Interpretive Data was last revised on 2017. Blood 10/14/2023 1:04 AM TROMPER 10/14/2023 1:36 AM TROMPER Vinay Pratt LAB BLOOD ORDERABLES F inal Result Performing Organization Address [facility] de Phone Number [facility] [address] [place] [place] [address] * (ABNORMAL) aPTT (10/14/2023 1:04 AM TROMPER) aPTT 68(H) 28 - 38 sec [facility] Comment: Interpretive Data Heparin therapeutic range: 66.0 - 100.0 seconds. Range based on correlation with therapeutic heparin activity range of 0.3 - 0.7 Units/mL. Current interpretive data was last revised on 2023. Blood 10/14/2023 1:04 AM TROMPER 10/14/2023 1:36 AM TROMPER Narrative [facility] - 10/14/2023 1:49 AM TROMPER Baseline prior to heparin initiation Vinay Favian Pratt LAB BLOOD ORDERABLES F inal Result Performing Organization Address [facility] de Phone Number [facility] [address] [facility] [place] [employer] [place] [address] * Protime-INR (10/14/2023 1:04 AM TROMPER) PT 13.5 10.3 - 13.7 sec [facility] INR 1.18 0.90 - 1.20 [facility] Comment: Interpretive data Oral anticoagulant therapeutic ranges: Venous thromboembolism prophylaxis or treatment: 2.0-3.0 CARDIOLOGY Standard range: 2.0-3.0 High-intensity range: 2.5-3.5 Refer to indication-specific guidelines for appropriate target ranges for prosthetic heart valve replacement. Current interpretive data was last revised on 2019. Blood 10/14/2023 1:04 AM TROMPER 10/14/2023 1:36 AM TROMPER Narrative [facility] - 10/14/2023 1:49 AM TROMPER Baseline prior to heparin initiation Vinay Pratt LAB BLOOD ORDERABLES F inal Result Performing Organization Address [facility]/ZIP Co de Phone Number [facility] [address] [employer] [place] [address] * (ABNORMAL) CBC with auto differential (10/14/2023 1:04 AM TROMPER) WBC 6.2 3.8 - 9.9 K/cumm [facility] Hgb 9.4(L) 13.0 - 17.5 g/dL [facility] Hct 29.0(L) 38.9 - 50.3 % [facility] Plt 357 150 - 400 K/cumm [facility] MPV 11.0 9.1 - 12.3 fL [facility] RBC 3.21(L) 4.30 - 5.80 M/cumm [facility] MCV 90.3 81.3 - 96.4 fL [facility] MCH 29.3 27.1 - 33.3 pg [facility] MCHC 32.4 32.3 - 35.7 g/dL [facility] RDW CV 13.6 11.1 - 14.9 % [facility] RDW SD 44.1 35.7 - 48.1 fL [facility] NRBC abs 0.00 0.00 - 0.01 K/cumm [facility] Blood 10/14/2023 1:04 AM TROMPER 10/14/2023 1:36 AM TROMPER Vinay Pratt LAB BLOOD ORDERABLES F inal Result Performing Organization Address [facility]/ZIP Co de Phone Number [facility] [address] [place] [address] * (ABNORMAL) Comprehensive metabolic panel (10/14/2023 1:04 AM TROMPER) Sodium 130(L) 135 - 145 mmol/L [facility] Potassium, pl 4.3 3.3 - 4.9 mmol/L [facility] Chloride 90(L) 97 - 110 mmol/L [facility] CO2 21(L) 22 - 32 mmol/L [facility] Anion gap 19(H) 2 - 15 mmol/L [facility] BUN 66(H) 6 - 25 mg/dL [facility] Creatinine 10.57(H) 0.80 - 1.30 mg/dL [facility] Glucose 453(C) 70 - 199 mg/dL [facility] Comment: Critical result called to and read back by Brit Zeng RN on 10/14/2023 0211 to [id number] Interpretive Data Fasting glucose >/= 126 mg/dl [...] 2022. Calcium 9.2 8.5 - 10.3 mg/dL [facility] Bilirubin, total 0.3 0.1 - 1.2 mg/dL [facility] Protein, pl 6.4(L) 6.5 - 8.5 g/dL [facility] Albumin 3.4(L) 3.5 - 5.0 g/dL [facility] Alk phos 98 40 - 130 Units/L [facility] ALT 21 7 - 55 Units/L [facility] AST 28 10 - 50 Units/L [facility] Blood 10/14/2023 1:04 AM TROMPER 10/14/2023 1:36 AM TROMPER Vinay Pratt DO LAB BLOOD ORDERABLES F inal Result [facility] [address] Department [place] [address] * (ABNORMAL) POCT glucose (10/13/2023 11:25 PM TROMPER) [facility] Signature Glucose, POC 534(C) 70 - 140 mg/dL [facility] Comment: For Glucose values <35 mg/dl when Hematocrit is >60 mg/dl,the test may not accurately detect significant hypoglycemia,and testing in the Laboratory should be considered if clinically indicated. Glucose comment 1 Glu2: [facility] Blood 10/13/2023 11:2 5 PM TROMPER 10/13/2023 11:25 PM TROMPER Frank Cody MD LAB POCT ORDERABLES - DEVICE Fin al Result Performing Organization Address [facility] Co de Phone Number [facility] [address] Department [place] [address] documented in this encounter Visit Diagnoses Diagnosis CAD in [place] artery- Primary CAD in [place] artery 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[place] artery of [place] heart with stable angina pectoris ([facility] ([facility]) Aortic stenosis, severe S/P CABG x 3 Postsurgical aortocoronary bypass status NSTEMI (non-ST elevated myocardial infarction) ([facility] ([facility]) Acute myocardial infarction, subendocardial infarction, episode of care unspecified S/P AVR Aortic valve stenosis, etiology of cardiac valve disease unspecified Coronary arteriosclerosis in [place] artery documented in this encounter Admitting Diagnoses Diagnosis CAD in [place] artery documented in this encounter Administered Medications Inactive Administered Medications - up to 3 most recent administrations Medication Order MAR Action Action Date Dose Rate Site acetaminophen (TYLENOL) tablet 500 mg 500 mg, oral, Every 6 hours PRN, 1st line for pain, Starting on Mon10/27/23 at 1200, If able to swallow medications., Indications: PainIndications:Pain Given 10/31/2023 5:43 AM CDT 500 mg Given 10/30/2023 9:36 PM CDT 500 mg al & mag hydroxide atynhvfyfvy-xhxidaskgefteia-lqyrgbaqj-nystatin (MAGIC MOUTHWASH) oral suspension 1-1-1-1 20 mL 20 mL, swish & swallow, Every 6 hours, First dose on Gregoria 10/26/23 at 1400 Given 11/03/2023 1:00 PM CDT 20 mL Given 11/03/2023 8:38 AM CDT 20 mL Given 11/02/2023 8:23 PM CDT 20 mL amiodarone (PACERONE) tablet 200 mg 200 mg, oral, Daily, First dose (after last modification) on 10/28/23 at 0900 Given 11/03/2023 8:38 AM CDT 200 mg Given 11/02/2023 9:22 AM CDT 200 mg Given 11/01/2023 8:22 AM CDT 200 mg aspirin chewable tablet 81 mg 81 mg, oral, Daily, First dose (after last modification) on Mon10/18/23 at 0915, If able to swallow medications. Within 6h of arrival to CVR if chest tube output allows. Given 11/03/2023 8:38 AM CDT 81 mg Given 11/02/2023 9:22 AM CDT 81 mg Given 11/01/2023 8:22 AM CDT 81 mg atorvastatin (LIPITOR) tablet 80 mg [...] Starting on Mon10/13/23 at 2332, Indications: constipationIndications:constipation calcitRIOL (ROCALTROL) capsule 0.25 mcg 0.25 mcg, oral, Daily, First dose on 2/24/24 at 0900 Given 11/03/2023 8:38 AM CDT [...] Given 11/03/2023 8:38 AM CDT 1,334 mg Carrier Fluids for Secondary Infusion - [...] 9:55 AM CDT 1,000 mg 200 mL/hr dextrose (D10W) 10% bolus 250 mL [...] for each episode of hypoglycemia., Indications: hypoglycemic disorderIndications:hypoglycemic disorder dextrose (GLUTOSE) 40 % gel 15 [...] Call MD for each episode of hypoglycemia. EROSION CONTROL COORDINATOR STATES GLUTOSE-15 CONTAINS GLUCOSE 40% W/W (50% W/V), Indications: hypoglycemic disorderIndications:hypoglycemic disorder Dianeal low calcium-dextrose 2.5 % 6,000 mL with heparin 3,000 Units dialysis solution intraperitoneal, Continuous, Starting on Mon10/21/23 at 1800, For 563 hours, CCPD bag number: 2, Indications: Peritoneal DialysisIndications:Peritoneal Dialysis New Bag 11/02/2023 8:01 PM CDT New Bag 11/01/2023 9:25 PM CDT New Bag 10/31/2023 10:03 PM CDT Dianeal low calcium-dextrose 4.25 % 6,000 mL with heparin 3,000 Units dialysis solution intraperitoneal, Continuous, Starting on Mon10/29/23 at 1800, For 379 hours, CCPD bag number: 1, Indications: Peritoneal DialysisIndications:Peritoneal Dialysis New Bag 11/02/2023 8:01 PM CDT New Bag 11/01/2023 9:25 PM CDT New Bag 10/31/2023 10:13 PM CDT docusate sodium (COLACE) capsule 100 mg 100 [...] DialysisIndications:ESRD on Dialysis Given 10/27/2023 10:12 PM TROMPER 10,000 Units Left Upper Arm Extraneal 7.5% AMBU-FLEX 2,500 mL with heparin 1,250 Units dialysis solution intraperitoneal, Continuous, Starting on 10/21/23 at 1800, For 563 hours, CCPD bag number: 3, Indications: Peritoneal DialysisIndications:Periton eal Dialysis New Bag 11/02/2023 8:01 PM CDT New Bag 11/01/2023 9:25 PM CDT New Bag 10/31/2023 10:02 PM CDT ezetimibe (ZETIA) tablet 10 mg 10 mg, oral, Daily, First dose on 10/14/23 at 0900 Given 11/03/2023 8:38 AM CDT 10 mg Given 11/02/2023 9:22 AM CDT 10 mg Given 11/01/2023 8:22 AM CDT 10 mg gentamicin (GARAMYCIN) 0.1 % cream topical, [...] Mon10/24/23 at 0739 Given 10/24/2023 7:45 AM TROMPER 200 mg heparin 5,000 unit/mL injection 2,000 Units 2,000 Units, intravenous, Every 6 hours PRN, PTT 46-55 seconds, Starting on Gregoria 11/02/23 at 1225, Subsequent bolus during heparin infusion., Indications: atrial fibrillationIndications:atr ial fibrillation Given 11/03/2023 5:32 AM CDT 2,000 Units heparin 5,000 unit/mL injection 3,000 Units 3,000 Units, intravenous, Every 6 hours PRN, PTT less than 46 seconds, Starting on Gregoria 11/02/23 at 1225, Subsequent bolus during heparin infusion., Indications: atrial fibrillationIndications:atr ial fibrillation Given 11/02/2023 10:18 PM CDT 3,000 [...] AM until heparin is discontinued., Indications: atrial fibrillationIndications:atr ial fibrillation Rate/Dose Change 11/03/2023 12:57 PM CDT [...] PainIndications:Pain Given 11/03/2023 8:39 AM CDT 1 tablet Given 11/02/2023 8:24 PM CDT 1 tablet Given 11/01/2023 8:22 AM CDT 1 tablet HYDROcodone-acetaminophen (NORCO) 5-325 mg per tablet 2 tablet 2 tablet, oral, Every 4 hours PRN, 3rd line for pain, Starting on Mon10/27/23 at 1114, Indications: PainIndications:Pain Given 10/30/2023 6:29 AM CDT 2 ta blets Given 10/29/2023 9:52 PM CDT 2 tablets insulin lispro (HumaLOG, ADMELOG) 100 unit/mL injection [...] manually unheldIndications:Diabetes Mellitus Given 10/23/2023 8:03 AM TROMPER 4 Units Right Upper Arm Given 10/22/2023 9:17 PM TROMPER 2 Units Le ft Upper Arm Given 10/22/2023 1:39 PM TROMPER 2 Units Ri ght Upper Arm insulin [...] hold since Mon10/23/2023 at 1051 until manually unheldIndications:Diabet es Mellitus Given 10/23/2023 8:03 AM TROMPER 4 Units Right Upper Arm insulin lispro (HumaLOG, ADMELOG) 100 unit/mL injection 5 Units 5 Units, subcutaneous, Once as needed, other, insulin pump not functional, Starting on Mon10/23/23 at 1052, For 1 dose, Administer back up dose if insulin pump is not functional. Call MD for alternate insulin regimen., Indications: Diabetes MellitusIndications:Diab etes Mellitus insulin NPH (HumuLIN N, NovoLIN N) 100 unit/mL injection 15 Units 15 Units, subcutaneous, Daily, First dose (after last modification) on Mon10/23/23 at 0900, Reason for prescribing NPH: basal, Indications: Diabetes Mellitus, On hold since Mon10/23/2023 at 1051 until manually unheldIndications:Diabet es Mellitus Given 10/23/2023 8:03 AM TROMPER 15 Units Right Upper Arm insulin NPH (HumuLIN N, NovoLIN N) 100 unit/mL injection 35 Units 35 Units, subcutaneous, Nightly, First dose (after last modification) on Mon10/23/23 at 2200, At [address] at [place]. Hold if no PD planned., Reason for prescribing NPH: peritoneal dialysis, Indications: Diabetes Mellitus, On hold since Mon10/23/2023 at 1051 until manually unheldIndications:Diabet es Mellitus INSULIN SUBCUTANEOUS PUMP insulin lispro (HumaLOG) 100 [...] CDT 4.7 Uni ts Left Upper Arm levothyroxine (SYNTHROID) tablet 25 mcg 25 mcg, [...] patient on renal replacement therapy (CRRT, hemodialysis). metoprolol tartrate (LOPRESSOR) immediate release tablet 12.5 mg 12.5 mg, oral, 2 times daily, First dose (after last modification) on Mon10/22/23 at 2100 Given 11/03/2023 8:39 AM CDT 12.5 mg Given 11/02/2023 8:23 PM CDT 12.5 mg Given 11/02/2023 9:21 AM CDT 12.5 mg milrinone (PRIMACOR) 3.3 mg in sodium chloride 0.9% 46.7 mL solution As needed, Starting on Mon10/17/23 at 0905, Intra-Op Given 10/17/2023 9:05 AM TROMPER 50 mL Surgical Site ondansetron (ZOFRAN) injection 4 mg 4 mg, intravenous, Administer over 2 Minutes, Every 6 hours PRN, nausea, vomiting, Starting on Mon10/17/23 at 1324, Administer no sooner than 6 hours after last dose. , Indications: Nausea and VomitingIndications:Nausea and Vomiting Given 10/25/2023 9:13 AM TROMPER 4 mg Given 10/19/2023 5:21 PM TROMPER 4 mg Given 10/19/2023 10:48 AM TROMPER [address] (PROTONIX) extended release tablet 40 mg 40 mg, oral, Daily, First dose on Mon10/18/23 at 0900, Do not crush, chew, cut, dissolve, open or otherwise manipulate tablet/capsule., Indications: Stress Ulcer ProphylaxisIndications:Stress Ulcer Prophylaxis Given 11/03/2023 8:39 AM CDT 40 mg Given 11/02/2023 9:22 AM CDT 40 mg Given 11/01/2023 8:22 AM CDT 40 mg papaverine 120 mg, heparin 10,000 Units in Lactated Ringer's (LR) 500 mL irrigation solution As needed, Starting on Mon10/17/23 at 0906, Intra-Op Given 10/17/2023 9:06 AM TROMPER 500 mL Other (Comment) polyethylene glycol (MIRALAX) packet 17 g 17 g, oral, Daily, First dose (after last modification) on Mon10/20/23 at 1045, Hold for diarrhea, Indications: constipationIndications:constip ation Given 10/30/2023 8:15 AM CDT 17 g Given 10/29/2023 8:19 AM CDT 17 g Given 10/22/2023 8:13 AM TROMPER 17 g potassium chloride ER (KLOR-CON) extended [...] dissolve, open or otherwise manipulate tablet/capsule., Indications: hypokalemiaIndications:hypokalemia potassium chloride ER (KLOR-CON) extended release tablet [...] dissolve, open or otherwise manipulate tablet/capsule., Indications: hypokalemiaIndications:hypokalemia Given 11/03/2023 5:30 AM CDT 40 mEq ramelteon (ROZEREM) tablet 8 mg 8 mg, oral, Nightly PRN, sleep, Starting on Mon10/13/23 at 2332, Indications: Sleep-Onset InsomniaIndications:Sleep-Onset Insomnia Given 11/02/2023 8:24 PM CDT 8 m g Given 10/26/2023 10:57 PM TROMPER 8 mg Given 10/25/2023 9:05 PM TROMPER 8 mg senna (SENOKOT) tablet 1 tablet 1 tablet, oral, 2 times daily, First dose on Mon10/18/23 at 0900, If able to swallow medications. Hold for diarrhea., Indications: constipationIndications:constipation Given 11/03/2023 8:38 AM CDT 1 table t Given 11/02/2023 8:24 PM CDT 1 tablet Given 11/02/2023 9:22 AM CDT 1 tablet sodium chloride 0.9% flush 0.5-20 mL 0.5-20 [...] CDT 10 mL Given 10/28/2023 12:40 AM TROMPER 20 mL Given 10/25/2023 9:14 AM TROMPER 10 mL sodium chloride 0.9% irrigation As needed, Starting on Mon10/17/23 at 0908, Intra-Op Given 10/17/2023 9:08 AM TROMPER 4,000 mL Surgical Site sodium chloride tablet 1 g 1 g, [...] Given 11/02/2023 5:52 PM CDT 100 mg vancomycin INTERMITTENT dosing per Pharmacy 1 mg, intravenous, at 100 mL/hr, Administer over 60 Minutes, As needed, for INTERMITTENT DOSING PER PHARMACY, Starting on Mon10/31/23 at 0748, FOR INFORMATIONAL PURPOSES ONLY--DO NOT ADMINISTER FROM THIS ORDER, Indications: Skin/Soft Tissue InfectionIndications:Skin/Soft Tissue Infection documented in this encounter Discontinued Medications Medication [...] by mouth 2 (two) times a day 4 potassium chloride ER 10 mEq CR tablet Take 2 tablet/capsule (20 mEq total) by mouth nightly 4 NIFEdipine (NIFEdipine XL) 90 mg 24 hr tablet Take 1 tablet (90 mg total) by mouth daily 4 added in this encounter Active and Recently Administered Medications Times are shown in CDT. Scheduled Medication Order 11/01/2023 11/02/2023 11/03/2023 al & mag hydroxide simethicone-diphenhydrami hz-gazmqgmrf-ccypbtnd (MAGIC MOUTHWASH) oral suspension 1-1-1-1 20 mL 20 mL, swish & swallow, Every 6 hours, First dose on Mon10/26/23 at 1400 0203 (Given - Provider: Kezia Palmer RN)0823 (Given - Provider: Yamilet Hay RN)1412 (Given - Provider: Yamilet Hay RN)202 (Given - Provider: Kezia Palmer RN) 0214 (Given - Provider: Kezia Palmer RN)0924 (Given - Provider: Jessica Rodriguez RN)1310 (Given - Provider: Jessica Rodriguez RN)202 (Given - Provider: Abelardo Brar RN) 0146 (Not Given - Provider: Abelardo Brar RN - Reason: Other)0838 (Given - Provider: Jessica Rodriguez RN)1300 (Given - Provider: Jessica Rodriguez RN) amiodarone (PACERONE) tablet 200 mg 200 mg, oral, Daily, First dose (after last modification) on 10/28/23 at 0900 0822 (Given - Provider: Yamilet Hay RN) 09 (Given - Provider: Jessica Rodriguez RN) 0838 (Given - Provider: Jessica Rodriguez RN) aspirin chewable tablet 81 mg(Linked Group 1) [...] Daily, First dose on 10/14/23 at 0900 0822 (Given - Provider: Yamilet Hay RN) 0922 (Given - Provider: Jessica Rodriguez RN) 0838 (Given - Provider: Jessica Rodriguez RN) calcitRIOL (ROCALTROL) capsule 0.25 mcg 0.25 mcg, oral, Daily, First dose on 10/14/23 at 0900 0822 (Given - Provider: Yamilet [...] RN) 0838 (Given - Provider: Jessica Rodriguez, LUAN)1138 (Given - Provider: Jessica Rodriguez RN)1717 (Given [...] medications. Hold for diarrhea. , Indications: constipation 08 (Given - Provider: Yamilet Hay RN)2027 (Given - Provider: Kezia Palmer RN) 0922 (Given - Provider: Jessica Rodriguez, LUAN)2023 (Given - Provider: Abelardo Brar RN) 0839 (Given - Provider: Jessica Rodriguez RN) epoetin genia-epbx (RETACRIT) (10,000 unit/mL) injection 10,000 Units 10,000 Units, subcutaneous, Weekly (for epoetins), First dose on Mon10/20/23 at 2100, Refrigerate, Indications: ESRD on Dialysis ezetimibe (ZETIA) tablet 10 mg 10 mg, oral, Daily, First dose on 10/14/23 at 0900 0822 (Given - Provider: Yamilet Hay, RN) 0922 (Given - Provider: Jessica Rodriguez, RN) 0838 (Given - Provider: Jessica Rodriguez, RN) gentamicin (GARAMYCIN) 0.1 % cream topical, Daily, First dose on Gregoria 10/19/23 at 0900, Apply to peritoneal dialysis catheter exit site daily during dressing change. DO NOT SUBSTITUTE WITH OINTMENT., Apply to affected area: dialysis access site, Indications: Infection Prophylaxis 1716 (Given - Provider: Yamilet Hay, RN)2125 (Given - Provider: Irma Connelly, LUAN) 2002 (Given - Provider: Jackie Masters, LUAN) 1831 (Not Given - Provider: Jessica Rodriguez RN - Reason: Other - Comment: pt [...] Auto Held) 0800 (Hold - Provider: Jessica Rodriguez RN - Reason: See Provider Order)1200 (Hold - Provider: Jessica Rodriguez RN - Reason: See Provider Order)1800 (Hold - Provider: Jessica Rodriguez RN - Reason: See Provider Order)2100 (Dose Auto Held) 0800 (Hold - Provider: Jessica Rodriguez RN - Reason: See Provider Order)1200 (Hold - Provider: Jessica Rodriguez RN - Reason: See Provider Order)1800 (Hold [...] Auto Held) 0900 (Hold - Provider: Jessica Rodriguez, RN - Reason: See Provider Order) 0900 (Hold - Provider: Jessica Rodriguez, RN - Reason: See Provider Order)2337 (Unheld by Provider - Provider: Automatic Discharge Provider) insulin NPH (HumuLIN N, NovoLIN N) 100 unit/mL injection 35 Units 35 Units, subcutaneous, Nightly, First dose (after last modification) on Mon10/23/23 at 2200, At 10 PM with PD at [place]. Hold if no PD planned., Reason for [...] 0622 (Given - Provider: Kezia Palmer RN) 0530 (Given - Provider: Abelardo Brar, LUAN) metoprolol tartrate (LOPRESSOR) immediate release tablet 12.5 mg 12.5 mg, oral, 2 times daily, First dose (after last modification) on Mon10/22/23 at 2100 0822 (Given - Provider: Yamilet Hay RN)2027 (Given - Provider: Kezia Palmer RN) 09 (Given - Provider: Jessica Rodriguez, LUAN)2022 (Given - Provider: Abelardo Brar, LUAN) 0839 (Given - Provider: Jessica Rodriguez, LUAN) pantoprazole DR (PROTONIX) extended release tablet 40 mg 40 mg, oral, Daily, First dose on Mon10/18/23 at 0900, Do not crush, chew, cut, dissolve, open or otherwise manipulate tablet/capsule., Indications: Stress Ulcer Prophylaxis 0822 (Given - Provider: Yamilet Hay RN) 09 (Given - Provider: Jessica Rodriguez, LUAN) 0839 (Given - Provider: Jessica Rodriguez RN) polyethylene glycol (MIRALAX) packet 17 g 17 g, oral, Daily, First dose (after last modification) on Mon10/20/23 at 1045, Hold for diarrhea, Indications: constipation 0823 (Not Given - Provider: Yamilet Hay RN - Reason: Order parameters not met) 09 (Not Given - Provider: Jessica Rodriguez RN [...] Palmer RN) 09 (Given - Provider: Jessica Rodriguez RN)2023 (Given - Provider: Abelardo Brar, LUAN) 0838 (Given - Provider: Jessica Rodriguez RN) sodium chloride 0.9% flush 0.5-20 mL 0.5-20 mL, intra-catheter, Every 8 hours scheduled, First dose on Mon10/17/23 at 1400, Flush volume based on line type and size. , Indications: Flushing 0547 (Given - Provider: Kezia Palmer RN)1430 (Given - Provider: Yamilet Hay RN)202 (Given - Provider: Kezia Palmer RN) 0624 (Given - Provider: Kezia Palmer RN)1310 (Given - Provider: Jessica Rodriguez RN)202 (Given - Provider: Abelardo Brar, LUAN) 0538 [...] RN) 0922 (Given - Provider: Jessica Rodriguez RN)1752 (Given - Provider: Jessica Rodriguez RN) 0838 (Given - Provider: Jessica Rodriguez RN)1716 (Given - Provider: Jessica Rodriguez RN) torsemide (DEMADEX) tablet 100 mg 100 mg, oral, 2 times daily (for diuretics), First dose (after last modification) on 10/21/23 at 1600 0821 (Given - Provider: Yamilet Hay RN)1544 (Given - Provider: Yamilet Hay RN) 0922 (Given - Provider: Jessica Rodriguez RN)1752 (Given - Provider: Jessica Rodriguez, LUAN) 0838 (Given - Provider: Jessica Rodriguez RN)1717 (Given - Provider: Jessica Rodriguez RN) vancomycin 1500 mg/250 mL in sodium chloride 0.9% (premix) 1,500 mg (COMPLETED) 1,500 mg, intravenous, Administer over 90 Minutes, Once, On Gregoria 11/02/23 at 0900, For 1 dose, Indications: Skin/Soft Tissue Infection 0928 (New Bag - Provider: Jessica Rodriguez RN) warfarin (COUMADIN) tablet 2.5 mg (COMPLETED) 2.5 mg, oral, Once (for warfarin), On Mon11/01/23 at 1800, For 1 dose, Target INR: 2 - 2.5, Indications: Mechanical Valve Thromboembolism Prophylaxis 171 (Given - Provider: Yamilet Hay RN) warfarin (COUMADIN) tablet 4 mg (COMPLETED) 4 mg, oral, Once (for warfarin), On Gregoria 11/02/23 at 1800, For 1 dose, Target INR: 2 - 2.5, Indications: Mechanical Valve Thromboembolism Prophylaxis 175 (Given - Provider: Jessica Rodriguez RN) warfarin (COUMADIN) tablet 4 mg (COMPLETED) 4 mg, oral, Once (for warfarin), On Mon11/03/23 at 1800, For 1 dose, Target INR: 2 - 2.5, Indications: Mechanical Valve Thromboembolism Prophylaxis 171 (Given - Provider: Jessica Rodriguez RN) Continuous Medication Order 11/01/2023 11/02/2023 11/03/2023 Dianeal low calcium-dextrose 2.5 % 6,000 mL with heparin 3,000 Units dialysis solution intraperitoneal, Continuous, Starting on 10/21/23 at 1800, For 563 hours, CCPD bag number: 2, Indications: Peritoneal Dialysis 2124 (New Bag - Provider: Irma Connelly RN) 2000 (New Bag - Provider: Jackie Masters RN) 2336 (Due: Stopped) Dianeal low calcium-dextrose 4.25 [...] RN) 0534 (New Bag - Provider: Abelardo Brar RN)0915 (New Bag - Provider: Jessica Rodriguez, [...] Provider: Jessica Rodriguez RN - Comment: bg [phone] (Self Administered Via Pump - Provider: Jessica Rodriguez RN)2020 (Self Administered Via Pump - Provider: Abelardo Brar RN - Comment: Patient stated he would not do a bolus for a blood sugar of 170.) 0845 (Self Administered Via Pump - Provider: Jessica Rodriguez RN - Comment: bg [phone] (Self Administered Via Pump - Provider: Jessica Rodriguez, LUAN - Comment: bg [phone] (Self Administered Via [...] at 0345 1545 (Given - Provider: Yamilet Hay RN) 1300 (Given - Provider: Jessica Rodriguez [...] Call MD for each episode of hypoglycemia. EROSION CONTROL COORDINATOR STATES GLUTOSE-15 CONTAINS GLUCOSE 40% W/W (50% W/V), Indications: hypoglycemic disorder glucagon injection 1 mg 1 mg, intramuscular, Every 30 min PRN, low blood sugar, blood glucose less than 70 mg/dL AND no IV access AND unable to take PO glucose/juice., Starting on Mon10/23/23 at 1052, After Glucagon is administered, position [...] during heparin infusion., Indications: atrial fibrillation 2218 (See Alternative - Provider: Abelardo Brar RN) 0532 (Given - Provider: Abelardo Brar [...] (See Alternative - Provider: Abelardo Brar RN) 0839 (See Alternative - Provider: Jessica Rodriguez RN) insulin lispro (HumaLOG, ADMELOG) 100 unit/mL injection [...] Sleep-Onset Insomnia 2023 (Given - Provider: Abelardo Brar RN) sodium chloride 0.9% flush 0.5-20 mL [...] Call MD for each episode of hypoglycemia. EROSION CONTROL COORDINATOR STATES GLUTOSE-15 CONTAINS GLUCOSE 40% W/W (50% [...] Count Last Ordered Date First Ordered Date warfarin (COUMADIN) tablet 4 mg 2 4 11/02/2023 heparin 5,000 unit/mL inject ion 2,000 Units 2 11/02/2023 10/14/2023 heparin 5,000 unit/mL inject ion 3,000 Units 2 11/02/2023 10/14/2023 heparin in 0.45% sodium chlo ride 25,000 units/250 mL (100 units/mL) infusion (premix) 4 11/02/2023 10/14/2023 INSULIN PUMP REFILL lispro ( HumaLOG, ADMELOG) solution 300 Units 2 11/01/2023 10/28/2023 INSULIN SUBCUTANEOUS PUMP in sulin lispro (HumaLOG) 100 UNIT/ML patient supplied pump 0-25 Units 5 11/01/2023 10/23/2023 vancomycin 1500 mg/250 mL in sodium chloride 0.9% (premix) 1,500 mg 2 11/01/2023 10/31/19 24 warfarin (COUMADIN) tablet 2.5 mg 1 024 sodium chloride tablet 1 g 2 10/31/2023 0 10/27/2023 vancomycin INTERMITTENT dosi ng per Pharmacy 1 10/31/2023 warfarin (COUMADIN) tablet 2 mg 3 4 10/29/2023 ceFAZolin (ANCEF) 1 gram/10 mL in sterile water (premix) 1,000 mg 2 10/29/2023 10/17/2023 Dianeal low calcium-dextrose 4.25 % 6,000 mL with heparin 3,000 Units dialysis solution 2 10/29/2023 levothyroxine (SYNTHROID) tablet 25 mcg 1 0 10/28/2023 warfarin (COUMADIN) tablet 1 mg 1 acetaminophen (TYLENOL) tablet 500 mg 1 03/2024 amiodarone (PACERONE) tablet 200 mg 2 10/2610/24/2023 HYDROcodone-acetaminophen (N ORCO) 5-325 mg per tablet 1 tablet 2 10/27/2023 10/25/2023 HYDROcodone-acetaminophen (N ORCO) 5-325 mg per tablet 2 tablet 1 10/27/2023 warfarin (COUMADIN) tablet 1.5 mg 4 024 10/23/2023 al & mag hydroxide dzhlhmsikhg-nluzsvnwkjhktut-ngcxnjkxe-nyst atin (MAGIC MOUTHWASH) oral suspension 1-1-1-1 20 mL 1 10/26/2023 warfarin (COUMADIN) tablet 3 mg 3 4 10/18/2023 guaiFENesin (ROBITUSSIN) 20 mg/mL oral liquid 200 mg 1 10/24/2023 traMADoL (ULTRAM) tablet 50 mg 3 10/24/2023 10/20/2023 amiodarone (NEXTERONE) 150 m g/100 mL (1.5 mg/mL) in dextrose (premix) 150 mg 1 10/23/2023 amiodarone in dextrose (NEXT ERONE) 360 mg/200 mL (1.8 mg/mL) infusion (premix) 2 10/23/2023 dextrose (D10W) 10% bolus 250 mL 4 10/23/19 24 10/14/2023 dextrose (GLUTOSE) 40 % gel 15 g 4 10/23/19 24 10/14/2023 glucagon injection 1 mg 3 10/23/2023 02/11/2023 insulin lispro (HumaLOG, ADM ELOG) 100 unit/mL injection 4 Units 2 10/23/2023 10/14/2023 insulin lispro (HumaLOG, ADM ELOG) 100 unit/mL injection 5 Units 3 10/23/2023 10/14/2023 insulin NPH (HumuLIN N, Abel JAYA N) 100 unit/mL injection 15 Units 2 10/23/2023 10/19/2023 insulin NPH (HumuLIN N, Abel JAYA N) 100 unit/mL injection 35 Units 1 10/23/2023 benzocaine-menthoL (CHLORASE PTIC) lozenge 1 lozenge 1 10/22/2023 metoprolol tartrate (LOPRESS OR) immediate release tablet 12.5 mg 1 10/22/2023 Dianeal low calcium-dextrose 2.5 % 6,000 mL with heparin 3,000 Units dialysis solution 2 10/21/2023 Extraneal 7.5% AMBU-FLEX 2,5 00 mL with heparin 1,250 Units dialysis solution 1 10/21/2023 insulin lispro (HumaLOG, ADM ELOG) 100 unit/mL injection 0-10 Units 4 10/21/2023 10/14/2023 insulin lispro (HumaLOG, ADM ELOG) 100 unit/mL injection 6 Units 4 10/21/2023 10/15/2023 insulin NPH (HumuLIN N, Abel JAYA N) 100 unit/mL injection 20 Units 1 10/21/2023 insulin NPH (HumuLIN N, Abel JAYA N) 100 unit/mL injection 40 Units 1 10/21/2023 torsemide (DEMADEX) tablet 100 mg 3 024 10/14/2023 acetaminophen (TYLENOL) tablet 1,000 mg 3 0 10/20/2023 10/17/2023 calcium acetate(phosphat bin d) (PHOSLO) capsule 1,334 mg 1 10/20/2023 Dianeal low calcium-dextrose 2.5 % 6,000 mL dialysis solution 10 10/20/2023 10/14/2023 epoetin genia-epbx (RETACRIT) (10,000 unit/mL) injection 10,000 Units 1 10/20/2023 Extraneal 7.5% AMBU-FLEX 2,5 00 mL dialysis solution 2 10/20/2023 10/14/2023 metoprolol tartrate (LOPRESS OR) immediate release split tablet 6.25 mg 2 10/20/2023 oxyCODONE (ROXICODONE) tablet 2.5 mg 2 /08/202310/19/2023 polyethylene glycol (MIRALAX) packet 17 g 3 10/20/2023 10/14/2023 warfarin (COUMADIN) tablet 0.5 mg 1 bisacodyL (DULCOLAX) suppository 10 mg 4 10/13/2023 dextrose 5% and Lactated Ringer's infusion 2 10/19/2023 10/17/2023 haloperidol (HALDOL) injection 1 mg 2 10/18/2023 insulin lispro (HumaLOG, ADM ELOG) 100 unit/mL injection 0-5 Units 2 10/19/2023 10/17/2023 insulin lispro (HumaLOG, ADM ELOG) 100 unit/mL injection 3 Units 2 10/19/2023 10/17/2023 insulin NPH (HumuLIN N, Abel JAYA N) 100 unit/mL injection 30 Units 1 10/19/2023 Lactated Ringer's (LR) bolus 500 mL 1 aspirin chewable tablet 81 mg 1 10/18/2023 calcium acetate(phosphat bin d) (PHOSLO) capsule 667 mg 3 10/18/2023 10/16/2023 DOBUTamine in dextrose 5% (D OBUTREX) 1,000 mg/250 mL (4,000 mcg/mL) infusion (premix) 2 10/18/2023 10/17/2023 gentamicin (GARAMYCIN) 0.1 % cream 3 202310/14/2023 HYDROmorphone (DILAUDID) injection 0.5 mg 1 10/18/2023 HYDROmorphone (PF) (DILAUDID ) injection 0.2 mg 2 10/18/2023 10/17/[address] (PROTONIX) e xtended release tablet 40 mg 2 10/18/2023 10/14/2023 scopolamine patch 72 hour 1 patch 1 024 vasopressin in 5% dextrose ( VASOSTRICT) 20 unit/100 mL (0.2 unit/mL) infusion 3 10/18/202310/17 acetaminophen (TYLENOL) 32 m g/mL oral liquid 1,000 mg 1 10/17/2023 acetaminophen (TYLENOL) suppository 650 mg 1 10/17/2023 aminocaproic acid (AMICAR) 9 ,500 mg in sodium chloride 0.9% 100 mL IVPB 1 10/17/2023 aspirin suppository 300 mg 1 10/17/2023 aspirin tablet 325 mg 2 10/17/2023 calcium chloride 1 g/110 mL in sodium chloride 0.9% (premix) solution 1 g 1 10/17/2023 calcium chloride 1 g/110 mL in sodium chloride 0.9% (premix) solution 1,000 mg 10/17/2023 Carrier Fluids for Secondary Infusion - 0.9% Sodium Chloride 2 10/17/2023 10/13/2023 ceFAZolin (ANCEF) 3,000 mg/3 0 mL in sterile water (premix) 3,000 mg 2 10/17/2023 10/16/19 desmopressin (DDAVP) 38 mcg in sodium chloride 0.9% 50 mL IVPB 1 10/17/2023 dextrose (D10W) 10% bolus 125 mL 10/17/19 dextrose 5% water flush 10-30 mL 10/17/19 docusate (COLACE) 10 mg/mL o ral liquid 100 mg 10/17/2023 docusate sodium (COLACE) capsule 100 mg 1 0 10/17/2023 famotidine (PEPCID) injection 20 mg 1 10/17 heparin 5,000 unit/mL inject ion 5,000 Units 1 10/17/2023 insulin lispro (HumaLOG, ADM ELOG) 100 unit/mL injection 0-4 Units 1 10/17/2023 insulin lispro (HumaLOG, ADM ELOG) 100 unit/mL injection 1 Units 1 10/17/2023 insulin lispro (HumaLOG, ADM ELOG) 100 unit/mL injection 1-14 Units 1 10/17/2023 insulin regular bolus from bag 2-14 Units 2 10/17/2023 insulin regular in 0.9% sodi um chloride (MYXREDLIN) 100 unit/100 mL (1 unit/mL) infusion (premix) 1 10/17/2023 magnesium sulfate 2 g/50 mL in water (premix) 2 g 2 10/17/2023 norepinephrine in dextrose 5 % (LEVOPHED) 8,000 mcg/250 mL (32 mcg/mL) infusion (premix) 10/17/2023 ondansetron (ZOFRAN) injection 4 mg 2 10/1710/13/2023 oxyCODONE (ROXICODONE) tablet 5 mg 1 2023 potassium chloride (KLOR-CON ) packet 20 mEq 1 10/17/2023 potassium chloride (KLOR-CON ) packet 40 mEq 1 10/17/2023 potassium chloride 20 mEq/50 mL in sterile water (premix) 20 mEq 1 10/17/2023 potassium chloride ER (KLOR- CON) extended release tablet 20 mEq 1 10/17/2023 potassium chloride ER (KLOR- CON) extended release tablet 40 mEq 1 10/17/2023 propofol (DIPRIVAN) 10 mg/mL infusion 1 protamine 50 mg in sodium ch loride 0.9% 50 mL IVPB 1 10/17/2023 senna (SENOKOT) tablet 1 tablet 1 senna 1.76 mg/mL syrup 8.8 mg 1 10/17/2023 sodium chloride 0.9% flush 0.5-20 mL 4 09/2210/13/2023 sodium chloride 0.9% infusion 3 10/17/2023 10/16/2023 sodium chloride 0.9% IVPB 0-250 mL 4 2023 sodium chloride 0.9% solution 1 10/17/2023 vancomycin 2,000 mg/520 mL i n sodium chloride 0.9% (premix) 2,000 mg 2 10/17/2023 10/16/19 insulin glargine (LANTUS, SE MGLEE) 100 unit/mL injection 15 Units 2 10/16/2023 10/14/2023 insulin glargine (LANTUS, SE MGLEE) 100 unit/mL injection 20 Units 1 10/16/2023 insulin lispro (HumaLOG, ADM ELOG) 100 unit/mL injection 10 Units 1 10/16/2023 perflutren protein-a (OPTISO N) 3 mL in sodium chloride 0.9% 8 mL syringe 1 10/16/2023 insulin glargine (LANTUS, SE MGLEE) 100 unit/mL injection 30 Units 1 10/15/2023 insulin lispro (HumaLOG, ADM ELOG) 100 unit/mL injection 12 Units 1 10/15/2023 metoprolol tartrate (LOPRESS OR) immediate release tablet 25 mg 1 10/15/2023 ALPRAZolam (XANAX) tablet 1 mg 1 10/14/2023 aspirin enteric coated tablet 81 mg 1 10/14 atorvastatin (LIPITOR) tablet 80 mg 1 10/14 calcitRIOL (ROCALTROL) capsule 0.25 mcg 1 0 10/14/2023 cholecalciferol (VITAMIN D-3 ) tablet 50,000 Units 10/14/2023 clopidogreL (PLAVIX) tablet 75 mg 1 colchicine (COLCRYS) tablet 0.6 mg 1 2023 ergocalciferol (VITAMIN D) c apsule 50,000 Units 10/14/2023 ezetimibe (ZETIA) tablet 10 mg 1 10/14/2023 famotidine (PEPCID) tablet 20 mg 10/14/19 gemfibroziL (LOPID) tablet 600 mg insulin glargine (LANTUS, SE MGLEE) 100 unit/mL injection 22 Units 10/14/2023 isosorbide mononitrate ER (I MDUR) extended release tablet 60 mg 10/14/2023 metoprolol tartrate (LOPRESS OR) immediate release tablet 50 mg 10/14/2023 NIFEdipine (PROCARDIA XL/ADA LAT CC) extended release tablet 90 mg 10/14/2023 ranolazine ER (RANEXA) exten ded release tablet 500 mg 10/14/2023 sodium chloride 0.9% bolus 500 mL acetaminophen (TYLENOL) tablet 650 mg enoxaparin (LOVENOX) syringe 40 mg 2023 ondansetron ODT (ZOFRAN-ODT) disintegrating tablet 4 mg 1 10/13/2023 ramelteon (ROZEREM) tablet 8 mg 1 4 Lab Orders Without Results Count Last Ordered D ate First Ordered Date POCT GLUCOSE DEVICE 121 11/03/2023 10/14/19 24 Imaging Orders Without Results Count Last Order [...] TO ENDOCRINOLOGY 1 10/18/2023 IP CONSULT TO PARTS COUNTER SALESPERSON 1 IP CONSULT TO CARDIOLOGY 1 10/14/2023 [...] 11/03/2023 documented in this encounter Care Teams Sales Representative Public Utilities Relationship Specialty Start Date End Date Aditya Correa MD [address] [facility] [place] [address] PCP - General 10/17/19 documented as of this encounter
--- OUTSIDE RECORDS SUMMARY | 2024-08-18 13:08 | XMS_ITS | Encounter Summary ---
Author Organization [facility] Healthcare Address [address] [place] [address] Care Team Providers Care Rodeo Rider Name Role Phone Aditya Castro MD Primary Care Provider [phone] Encounter Details Date Type Department Care Team (Late st Contact Info) Description 10/13/2023 Orders Only [facility] [address] [place] [id number] Julio Lopez DO [facility] [place] [address] Social History Tobacco Use Types Packs/Day Years Used Date Smoking Tobacco: Never Smokeless Tobacco: Former Alcohol Use Standard Drinks/Week Comments No 0 (1 standard drink = 0.6 oz pur e alcohol) [facility] Utilities Answer Date Recorded In the past 12 months has [employer], gas, oil, or water [employer] threatened to shut off services in your [...] week 10/16/2023 How often do you attend [facility] or [facility] services? 1 to 4 times per year [...] place to sleep or slept in a nursing home (including now)? No 10/16/2023 Personal Safety Answer Date Recorded Have you ever been in or are you currently in a harmful physical or emotional relationship or is someone making you feel afraid or unsafe? 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
--- OUTSIDE RECORDS SUMMARY | 2024-08-18 13:08 | XMS_ITS | Encounter Summary ---
Author Organization [facility] Address [address] [address] Care Team Providers Care Psych Therapist Name Role Phone Aditya Castro MD Primary Care Provider [phone] Encounter Details Date Type Department Care Team (Late st Contact Info) Description 05/22/2023 Orders Only [facility] Cardiology [address] [facility] 162 [facility] [address] [place] [address] Abelardo Petit MD [address] [facility] [address] [place] [address] Social History Tobacco Use Types Packs/Day Years Used Date Smoking Tobacco: Never Smokeless Tobacco: Former Alcohol Use Standard Drinks/Week Comments No 0 (1 standard drink = 0.6 oz pur e alcohol) AUDIT-C Answer Date Recorded Q1: How often do you have a drink containing alc ohol? Monthly or less 06/07/2022 Q2: How many drinks containi ng alcohol do you have on a typical day when you are drinking? 3 or 4 06/07/2022 Q3: How often do you have si x or more drinks on one occasion? 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 Gender Identity Not on file Sexual Orientation Not on file documented as of this encounter Plan of Treatment Not on file documented as of this encounter Procedures Procedure Name Priority Date/Time Associated Diagnosis Comments CARDIOLOGY DOCUMENT SCAN Routine 05/20/2023 2:36 PM CDT documented in this encounter Results * Cardiology Document Scan (05/20/2023 2:36 PM CDT) Anatomical Region Laterality Modality Other us Abelardo Petit MD CV CARDIAC SERVICES PROC EDURES Final Result documented in this encounter Visit Diagnoses Not on filedocumented in this encounter Care Teams Psych Therapist Relationship Specialty Start Date End Date Aditya Castro MD [address] [facility] [place] [address] PCP - General 10/17/19 documented as of this encounter
--- OUTSIDE RECORDS SUMMARY | 2024-08-18 13:08 | XMS_ITS | Encounter Summary ---
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 Gender Identity Not on file Sexual Orientation Not on file documented as of this encounter Medications at Time of Discharge aspirin 81 mg enteric coated tabletIndications: Myocardial Reinfarction Prevention Take 1 tablet (81 mg total) by mouth daily 11/07/2013 atorvastatin (LIPITOR) 80 mg tabletIndications: hyperlipidemia Take 1 tablet (80 mg total) by mouth daily calcitRIOL (ROCALTROL) 0.25 mcg capsuleIndications :hypophosphatemia Take 1 capsule (0.25 mcg total) by mouth daily calcium acetate,phosphat bind, (PHOSLO) 667 mg capsuleIndications :hypocalcemia Take 1 capsule (667 mg total) by mouth 4 (four) times a day (with meals and nightly) With meals and snack cetirizine (ZyrTEC) 10 mg tabletIndications: Allergic Rhinitis Take 1 tablet (10 mg total) by mouth daily as needed for allergies cholecalciferol (VITAMIN D-3) 2000 unit tabletIndications: Vitamin D Deficiency Take 25 tablets (50,000 Units total) by mouth once a week EZETIMIBE ORAL Take 10 mg by mouth daily insulin lispro (HumaLOG, ADMELOG) 100 unit/mL vial for injectionIndicatio ns:type 2 diabetes mellitus THIS IS FOR THE INSULIN PUMP: Continue [email or web address] 5 insulin pump with Dydra G6 CGM at home settings: TIME BASAL RATE TOTAL BASAL DAILY DOSE: 65.85 0330 1.7 units/hour 0800 0.8 units/hour 2000 5.8 units/hour 06/29/2022 ketoconazole (NIZORAL) 2 % shampoo APPLY EXTERNALLY 2 TO 3 TIMES EVERY WEEK NEEDED 04/23/2019 nitroglycerin (NITROSTAT) 0.4 mg SL tablet 12/27/2017 omeprazole (PriLOSEC) 20 mg capsuleIndications :GI Bleed,prevention Take 1 capsule (20 mg total) by mouth daily pen needle, diabetic (BD Ultra-Fine Short Pen Needle) 31 gauge x 5/16 needle 01/30/2018 acetaminophen 500 mg capsule Take 2 capsules (1,000 mg total) by mouth every 6 (six) hours as needed for pain 30 tablet 1 06/29/2022 4 clopidogrel (PLAVIX) 75 mg tablet TAKE 1 TABLET BY MOUTH DAILY 90 tablet 01/28/2019 4 isosorbide mononitrate ER (IMDUR) 30 mg 24 hr tablet TAKE 1 TABLET BY MOUTH EVERY DAY 90 tablet 12/24/2018 4 losartan (COZAAR) 25 mg tablet Take 0.5 tablets (12.5 mg total) by mouth daily 15 tablet 11 06/30/2022 4 metoprolol (LOPRESSOR) 100 mg tablet Take 1 tablet (100 mg total) by mouth every 12 (twelve) hours 4 documented as of this encounter Discharge Disposition Disposition Code Departure Means Destination Discharge to home or self care documented in this encounter Plan of Treatment Not on file documented as of this encounter Visit Diagnoses Not on filedocumented in this encounter Care Teams Computer Help Desk Specialist Relationship Specialty Start Date End Date Aditya Castro MD [address] [facility] [place] [address] PCP - General 10/17/19 documented as of this encounter
--- OUTSIDE RECORDS SUMMARY | 2024-08-18 13:08 | XMS_ITS | Encounter Summary ---
Author Organization [facility] Healthcare Address [address] [place] [address] Care Team Providers Care Police Sergeant Precinct Name Role Phone Aditya Castro MD Primary Care Provider [phone] Encounter Details Date Type Department Care Team (Late st Contact Info) Description 07/28/2023 Orders Only [facility] Medical Group Cardiology [address] [facility] 162 [facility] 102 [place] [address] Cyndi Nielson MD [address] [facility] [address] [place] [address] Social History Tobacco Use Types [...] more drinks on one occasion? 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 Gender Identity Not on file Sexual Orientation Not on file documented as of this encounter Plan of Treatment Not on file documented as of this encounter Procedures Procedure Name Priority Date/Time Associated Diagnosis Comments CARDIOLOGY DOCUMENT SCAN Routine 023 10:15 AM HIGH VOLTAGE ELECTRICIAN documented in this encounter Results * Cardiology Document Scan (07/26/2023 10:15 AM HIGH VOLTAGE ELECTRICIAN) Anatomical Region Laterality Modality Other us Cyndi Nielson MD CV CARDIAC SERVICES PROCEDU RES Final Result documented in this encounter Visit Diagnoses Not on filedocumented in this encounter Care Teams Police Sergeant Precinct Relationship Specialty Start Date End Date Aditya Castro MD [address] [facility] [place] [address] PCP - General 10/17/19 documented as of this encounter
--- OUTSIDE RECORDS SUMMARY | 2024-08-18 13:11 | XMS_ITS | Encounter Summary ---
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 - Department of Vascular Surgery, Vascular Laboratory [address] [place] [address] Lower Extremity Venous Ultrasound Report Patient Name: JUVENAL GARVIN C : 1970 (51y 9m) Study Date: 06/15/2022 10:29:44 AM Gender: M Tech: CD Location: [id number] Ref.Provider: KIMBERLEE ADAMS Quality: Adequate Order Provider: KIMBERLEE ADAMS Procedures: Vascular Report: Venous Duplex imaging was performed bilaterally in the lower extremities. The common femoral, femoral, popliteal, posterior tibial, peroneal veins were evaluated for patency, spontaneity and phasicity with Doppler, compression and augmentation maneuvers. Great saphenous vein proximal at the junction was evaluated with compression maneuvers. Indications: Localized edema. Findings: Performing Baling Machine Operator: Faye Zheng RVT, RDMS. Bilateral: Venous Doppler signals in the bilateral lower extremity are within normal limits for compression maneuvers. No evidence of deep vein thrombus by duplex, proximal to the calf. Comments: Testing protocol is modified due to positive COVID result or possible COVID. Conclusions: 1. There is no evidence of acute deep vein thrombosis in the lower extremities bilaterally. Noninvasive venous studies cannot rule out isolated calf vein obstruction. History: Covid suspected. Intubated. DM. HTN. HLD. Remove perc Arterial VAD(Impella) 06/10/22 Unstable coroanry angina. Previous Studies: No previous studies for comparison. Disclaimer: The signing physician has reviewed all images pertaining to this test. These images and this report will be retained in the patient chart by the Vascular Laboratory for the legally required time period. This chart constitutes the legal record of any testing performed. Electronically Signed By: Jase Mendez MD [facility] 2022-06-15 12:34:44 CDT CC: CC: Procedure Note Jase Mendez MD - 06/15/2022 [facility] - Department of Vascular Surgery,Vascular Laboratory [address] [place] [address] Lower Extremity Venous Ultrasound Report Patient Name: JUVENAL GARVIN CPatient ID: [id number] : 1970 (51y 9m)Study Date: 06/15/2022 10:29:44 AM Gender: MAccession #: [id number] Tech: CDLocation: [id number] Ref.Provider: Leandro ADAMSality: Adequate Order Provider: Ramez ADAMS #: [id number] Procedures: Vascular Report: Venous Duplex imaging was performed bilaterally in the lower extremities.The common femoral, femoral, popliteal, posterior tibial, peroneal veins wereevaluated for patency, spontaneity and phasicity with Doppler, compression and augmentationmaneuvers. Great saphenous vein proximal at the junction was evaluated with compressionmaneuvers. Indications: Localized edema. Findings: Performing Baling Machine Operator: Faye Zheng RVT, RDMS. Bilateral: Venous Doppler signals in the bilateral lower extremity are within normallimits for compression maneuvers. No evidence of deep vein thrombus by duplex,proximal to the calf. Comments: Testing protocol is modified due to positive COVID result or possibleCOVID. Conclusions: 1. There is no evidence of acute deep vein thrombosis in the lowerextremities bilaterally. Noninvasive venous studies cannot rule out isolated calf veinobstruction. History: Covid suspected. Intubated. DM. HTN. HLD. Remove perc ArterialVAD(Impella) 06/10/22 Unstable coroanry angina. Previous Studies: No previous studies for comparison. Disclaimer: The signing physician has reviewed all images pertaining to this test.These images and this report will be retained in the patient chart by the VascularLaboratory for the legally required time period. This chart constitutes the legal record ofany testing performed. Electronically Signed By: Jase Mendez MD [facility] 2022-06-15 12:34:44 CDT CC: CC: us Kimberlee Adams MD IMG US PROCEDURES Final Res ult documented in this encounter Visit Diagnoses Not on filedocumented in this encounter Additional Health Concerns Infection Onset Date Last Indicated Resolved Time COVID: Suspected 06/15/2022 06/15/2022 06/15/2022 1:03 PM CDT documented as of this encounter Care Teams Standard Machine Stitcher Relationship Specialty Start Date End Date Aditya Castro MD [address] [facility] [place] [address] PCP - General 10/17/19 documented as of this encounter
--- OUTSIDE RECORDS SUMMARY | 2024-08-18 13:11 | XMS_ITS | Encounter Summary ---
Author Organization [facility] Healthcare Address [address] [place] [address] Care Team Providers Care Curing Press Operator Name Role Phone Aditya Castro MD Primary Care Provider [phone] Encounter Details Date Type Department Care Team (Late st Contact Info) Description 06/08/2022 Orders Only [facility] [address] [place] [address] Marcelina Lo, MANAGER PSYCHOLOGY [address] [facility] [phone] [place] [address] Status post insertion of drug eluting coronary artery stent (Primary Dx) Social History Tobacco Use Types [...] on file 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 Gender Identity Not on file Sexual Orientation Not on file documented as of this encounter Plan of Treatment Not on file documented as of this encounter Procedures Procedure Name Priority Date/Time Associated Diagnosis Comments PREPARE RBC STAT 06/17/2022 10:25 PM CDT documented in this encounter Results * Prepare RBC (06/17/2022 10:25 PM CDT) Product code [id number] [facility] Unit Number [id number] [facility] Product Blood Type APOS [facility] Dispense Status PRESUMED TRANSFUSED [facility] Blood 06/17/2022 10:2 5 PM CDT 06/17/2022 10:25 PM CDT Narrative [facility] - 06/21/2022 12:50 AM CDT Are special requirements needed? (All products are leukoreduced and CMV- safe)- >No Date required:-[id number] LRRBC # of [id number] Reasons:-Hgb <7 g/dL} us Tyra De La Torre MD BLOOD BANK PRODUCT ORDERABLES F inal Result [facility] Department [place] [address] documented in this encounter Visit Diagnoses Diagnosis Status post insertion of drug eluting coronary artery stent- Primary documented in this encounter Care Teams Curing Press Operator Relationship Specialty Start Date End Date Aditya Castro MD [address] [facility] [place] [address] PCP - General 10/17/19 documented as of this encounter
--- OUTSIDE RECORDS SUMMARY | 2024-08-18 13:11 | XMS_ITS | Encounter Summary ---
Author Organization [facility] Healthcare Address [address] [place] [address] Care Team Providers Care Technical Healthcare Consultant Name Role Phone Aditya Castro MD Primary Care Provider [phone] Reason for Visit * Auth/Cert Specialty Diagnoses / Procedures Referred By Contac t Referred To Contact Diagnoses Angina pectoris (HCC) NON STEMI CARDS FIRM, PD, covid neg Procedures N/A Referral ID Status Reason Start Date Expiration Date Visits Re quested Visits Authorized [id number] 1 1 Encounter Details Date Type Department Care Team (Late st Contact Info) Description 06/04/2022 9:32 PM CDT - 06/29/2022 2:07 PM SENIOR ART DIRECTOR Hospital Encounter [facility] [address] [place] [id number] Champ Osborne MD PhD [address] [place] [address] Gunnar José MD [address] [place] [address] Conrad Akers MD [address] [place] [address] Catherine Adams MD [address] [place] [address] Carey East MD [address] [place] [address] Roberth Mas MD [address] [place] [address] Frank Bowers MD [address] [place] [address] Hypotension, unspecified hypotension type (Primary Dx); Diagnosis unknown; CAD (coronary artery disease); Unstable angina ([facility]) ([facility]); Coronary artery disease involving ass[place]iboine and [place] tribes coronary artery of assiniboine and [place] tribes heart with unstable angina pectoris ([facility]) ([facility]); Hyperlipidemia, unspecified hyperlipidemia type; Coronary artery disease involving assiniboine and g[place] tribes heart without angina pectoris, unspecified vessel or lesion type; Acute hypoxemic respiratory failure ([facility]); Angina pectoris ([facility]); End stage renal disease ([facility]) ([facility]) Discharge Disposition: Discharge to an IP Rehab facility Social History Tobacco Use Types Packs/Day Years [...] on file Legal Sex Male 3:42 AM SENIOR ART DIRECTOR Gender Identity Not on file Sexual Orientation Not on file documented as of this encounter Last Filed Vital Signs Vital Sign Reading Time Taken Comments Blood Pressure 118/59 06/29/2022 1:25 PM SENIOR ART DIRECTOR Pulse 77 06/29/2022 1:25 PM SENIOR ART DIRECTOR Temperature 36.7 ??C (98 ??F) 06/29/2022 1:25 PM SENIOR ART DIRECTOR Respiratory Rate 18 06/29/2022 7:43 AM SENIOR ART DIRECTOR Oxygen Saturation 100% 06/29/2022 1:25 PM SENIOR ART DIRECTOR Inhaled Oxygen Concentration - - Weight 118.1 kg (260 lb 6.4 oz) 06/29/2022 6:32 AM SENIOR ART DIRECTOR Height 177.8 cm (5' 10 ) 06/04/2022 9:35 PM CDT Body Mass Index 37.36 06/04/2022 9:35 PM CDT documented in this encounter Discharge Summaries * Frank Bowers MD - 06/29/2022 10:13 AM CST Inpatient Discharge Summary BRIEF OVERVIEW Admitting Provider: Catherine Adams MD Discharge Provider: Frank Bowers MD Primary Care Physician at Discharge: Aditya Castro MD [phone] Admission Date: 06/04/2022 Discharge Date: 06/29/2022 Admission Location: [facility] Problems/Diagnoses: Principal Problem: NSTEMI (non-ST elevated myocardial infarction) ([facility]) ([facility]) Active Problems: Cardiogenic shock ([facility]) Type 1 diabetes mellitus (HCC) ESRD (end stage renal disease) ([facility]) ([facility]) Acute hypoxemic respiratory failure ([facility]) Anemia Acute on chronic HFrEF (heart failure with reduced ejection fraction) ([facility]) Atrial fibrillation ([facility]) ([facility]) Resolved Problems: No resolved hospital problems. DETAILS OF HOSPITAL STAY Presenting Problem/History of Present Illness: As per Admission H&P AC), HTN, CAD s/p stent 04/06 and 3 stent 12/07, T1DM (insulin pump at home), ESRD on PD, HLD, GERD, hyperparathyroidism, DDD, OA, gout, BEN on CPAP initially presented to [facility] for n/v andchest pain, transferred to [facility] for LHC/PCI, now presenting to CCU s/p complex PCI with impella and intubated. At the OSH he presented with 3d generalized weakness, chills, ROONEY, n/v, chest pain relieved by sublingual ntg. His labs were notable for trop 1.0-->1.09-->0.729, BNP 14468. He had a CT CAP showing cholelithiasis and likely PNA. RUQUS showed distended gallbladder with gallstones and gallbladder wall thickening, recommended HIDA scan. He was treated with ctx/azithromycin. He was started on a heparin gtt, cath 06/03 showed previous PCI to proximal and distal right coronary patent, 99% ostialcircumflex stenosis as well as 90% circumflex lesion after origin of largest OM branch, mild diffuse disease in LAD which does not appear to be flow limiting. Recommended PCI of left circumflex as optimal treatment, prompting transfer to [place]. He arrived at [place] 06/05. EKG showed sinus bradycardia, 1st deg AV block. Overnight, ACT was called for substernal chest pressure and hypoxemia, he was placed on BiPAP with improvement in oxygen saturation and transferred to the MICU, where he was placed on AVAPS. CXR showed significantly worsened pulmonary edema. Trop 4797 -> 4266 in the MICU, ekg unchanged from prior. NT ProBNP 15,490. Lactate 2.0. NT ProBNP 15,490. Lactate 2.0. Started on kaylah for cholecystitis. He was continued on heparin gtt, started on nitro gtt for BP control. He was weaned to nasal cannula. Underwent complex PCI 06/07, PCI revealed ostial circ lesion of 90%, large OM with 70% narrowing. Patient became hypotensive and hypoxemic requiring levo and epi gtt. The patient was intubated. The left dominant circumflex and OM were then stented. Impella was inserted. A swan liv catheter and L IJ trialysis were also placed. Arrived to CCU on ventilator settings 34/500/90/15, not on pressors, sedated with propofol. Impellaat p9. The trialysis line that was inserted had too long of a sheath so had to be exchanged. Hospital Course: Adelia Garvin Jr. is 51 y.o. male with history of DMI on insulin pump c/b ESRD on PD and CAD s/pPCI, HFrEF and Afib not on AC admitted on 06/04/2022 from OSH for complex PCI. Patient initially presented with chest pain and nausea, workup showed Trop peak of 1.09, LHC on 06/03 at OSH showed 90%+ostial LCx and OM lesion and accepted by cardiology for complex PCI. Patient underwent PCI on 06/07with successful placement of MARIELLA to LCx and OM bifurcation, procedure was complicated by cardiogenic shock requiring Impella and respiratory failure requiring intubation. Temp Trialysis placed and patient was placed on CRRT, patient received supportive care and weaned on Impella on 06/10 and extubated on 06/19 and transferred to the floor on 06/22. * NSTEMI (non-ST elevated myocardial infarction) ([facility]) ([facility]) With interventions described above. Post-transfer and post-cath, he developed recurrent substernal chest pain with no EKG changes. Per cardiology, despite being s/p complex PCI to LCx and OM bifurcation with MARIELLA, he still has significant residual disease. He was treated with uptrending doses of metoprolol for rate controlled AFib, imdur and good control of chest pain prior to discharge. He was continued on DAPT and atorvastatin as well. Ranolazine was held on discharge given pressure tolerance. Atrial fibrillation ([facility]) ([facility]) He was in atrial fibrillation on transfer to medicine with rates ~90-110s. Metoprolol was uptitrated for improved rate control, ultimately his rhythm converted to NSR overnight on 06/24. Metoprolol was de-escalated for sinus bradycardia; stable on metop 25 BID at discharge. CHADsVASc=4, but he was not on anticoagulation prior to admission. While on DAPT, he was not started on anticoagulation during this hospitalization either with high HAS-BLED score. Acute on chronic HFrEF (heart failure with reduced ejection fraction) ([facility]) He developed cardiogenic shock requiring impella in the setting of cath c/b AHRF 2/2 pulmonary edema. Post-cath, TTE demonstrated recovered EF 65% with grade I diastolic dysfunction. Volume was managed with CRRT in ICU, then by resumption of PD on the medical floor. In discussion with nephrology, low dose losartan was started for GDMT in addition to metoprolol. ESRD (end stage renal disease) ([facility]) ([facility]) Renal consulted on admission with history of ESRD on PD. While in ICU, temporary dialysis catheter was placed to facilitate CRRT for volume removal. Upon transfer to the floor, PD was continued and tolerated well. He was continued on his home vitamins for renal bone mineral disease and phoslo. Trialysis removed 06/25. Type 1 diabetes mellitus ([facility]) Prior to admission, his A1c was well controlled on home insulin pump. The patient didn't bring the pump to the hospital, and while critically ill/on CRRT he was initiated on basal/bolus insulin regimen in conjunction with the endocrine service. He had both hyperglycemic and hypoglycemic episodes onthis regimen 2/2 complicated regimen related to PD. Patient was resumed on home insulin pump on 06/27 with improved control. INSULIN PUMP SETTINGS per endocrinology Continue Omnipod 5 insulin pump with Dexcom G6 CGM at home settings: TIME BASAL RATE TOTAL BASAL DAILY DOSE: 65.85 0330 1.7 units/hour 0800 0.8 units/hour 2000 5.8 units/hour ICR: 1:6.5 SENSITIVITY: 1:25 IAT: 4 hours TARGET: 120 If pump fails, give lispro 4 units once and restart insulin pump. If pump supplies are not available: - Lantus 35 units qAM - Humalog 10 units with meals - Continue resistant correction scale TID/HS/0200 - NPH 45 units with start of peritoneal dialysis session Acute hypoxemic respiratory failure (HCC) Secondary to ACS and flash pulmonary edema, since resolved with CRRT and extubated on 06/19. Patient passed barium swallow on 06/21. Remained on RA. Active Issues Requiring Follow-up: Rehab Endocrine follow up in 1-2 weeks for pump evaluation Test Results Pending at Discharge: Pending Labs Order Current Status Infection Prevention MRSA Only (Staphylococcus aureus) Culture Nasal In process Pneumonia PCR with aerobic culture and Gram stain Tracheal aspirate In process Type and screen In process Operative Procedures Performed: Procedure(s): REMOVE PERC ARTERIAL VAD (IMPELLA), DIFFERENT SESSION 05907 Other Procedures: Pertinent Test Results: See hospital course Discharge Details Physical Exam at Discharge: Discharge Condition: stable Pulse: 71 Resp: 18 BP: 124/52 Temp: 36.8 ??C (98.2 ??F) Weight: 118.1 kg (260 lb 6.4 oz) Pertinent Exam Findings at Discharge: See note from day of discharge Discharge Disposition: Inpatient Rehab Code Status at Discharge: Full Discharge Instructions: Mr. Adelia Garvin, You were admitted to the hospital for chest pain, and you were seen by our cardiology specialists where you received a new stent placed. As you have improved and are tolerating your insulin pump wellas well as your dialysis, you are stable to be discharged to the rehab facility. Discharge Medications: Current Medications TAKE these medications amLODIPine 10 mg tablet Take 10 mg by mouth daily Commonly known as: NORVASC aspirin 81 mg enteric coated tablet Take 1 tablet by mouth daily atorvastatin 80 mg tablet Take 80 mg by mouth daily Commonly known as: LIPITOR BD Ultra-Fine Short Pen Needle 31 gauge x 5/16 needle U ONE PEN NEEDLE TO INJ INSULIN SC QID Generic drug: pen needle, diabetic calcitRIOL 0.25 mcg capsule Take 0.25 mcg by mouth daily Commonly known as: ROCALTROL calcium acetate(phosphat bind) 667 mg capsule Take 667 mg by mouth 4 (four) times a day (with meals and nightly) With meals and snack Commonly known as: PHOSLO cetirizine 10 mg tablet Take 10 mg by mouth daily as needed for allergies Commonly known as: ZyrTEC cholecalciferol 2000 unit tablet Take 50,000 Units by mouth once a week Commonly known as: VITAMIN D-3 cloNIDine 0.1 mg tablet Take 0.2 mg by mouth every 8 (eight) hours Commonly known as: CATAPRES clopidogreL 75 mg tablet TAKE 1 TABLET BY MOUTH DAILY Commonly known as: PLAVIX Colcrys 0.6 mg tablet Take one tablet po every Monday, Monday and Monday. Generic drug: colchicine doxycycline monohydrate 50 mg tablet Take 50 mg by mouth 2 (two) times a day Commonly known as: ADOXA EZETIMIBE ORAL Take 10 mg by mouth daily furosemide 80 mg tablet Take 80 mg by mouth 2 (two) times a day Commonly known as: LASIX hydrALAZINE 100 mg tablet TAKE 1 TABLET BY MOUTH EVERY 8 HOURS Commonly known as: APRESOLINE insulin aspart U-100 100 unit/mL cartridge Inject under the skin Basal rate 1200 am to 0500 am 5.25; from 5 am to 8 pm 1.8; from 8pm to 12 am 5.5 Commonly known as: NovoLOG isosorbide mononitrate ER 30 mg 24 hr tablet TAKE 1 TABLET BY MOUTH EVERY DAY Commonly known as: IMDUR meloxicam 7.5 mg tablet Take 7.5 mg by mouth 2 (two) times a day Commonly known as: MOBIC metoprolol 100 mg tablet Take 100 mg by mouth every 12 (twelve) hours Commonly known as: LOPRESSOR omeprazole 20 mg capsule Take 20 mg by mouth daily Commonly known as: PriLOSEC ranolazine ER 500 mg 12 hr tablet Take 500 mg by mouth 2 (two) times a day Commonly known as: RANEXA UNABLE TO FIND Zalacyclovir take one tablet three times daily Outpatient Follow-Up: OR ART DIRECTOR documented in this encounter Discharge Instructions * Discharge Instructions* Frank Bowers MD - 06/29/2022 9:19 AM SENIOR ART DIRECTOR Mr. Adelia Garvin, You were admitted to the hospital for chest pain, and you were seen by our cardiology specialists where you received a new stent placed. As you have improved and are tolerating your insulin pump wellas well as your dialysis, you are stable to be discharged to the rehab facility. Continue Omnipod 5 insulin pump with [place] G6 CGM at home settings: TIME BASAL RATE TOTAL BASAL DAILY DOSE: 65.85 0330 1.7 units/hour 0800 0.8 units/hour 2000 5.8 units/hour ICR: 1:6.5 SENSITIVITY: 1:25 IAT: 4 hours TARGET: 120 If pump fails, give lispro 4 units once and restart insulin pump. If pump supplies are not available: - Lantus 35 units qAM - Humalog 10 units with meals - Continue resistant correction scale TID/HS/0200 - NPH 45 units with start of peritoneal dialysis session Labs/Frequency to be Monitored: continuous glucose monitoring HbA1c every 3 months or 6 months if appropriate, Urine microalbumin/creatinine test yearly, and Dilated eye exam yearly or sooner as indicated by your eye dropper assembler Pending results for primary service or primary care physician to follow up on: None at time of discharge Follow Up Plan: Follow up with endocrinology near his home 1-2 weeks after discharge to reassess glycemic management and adjust insulin pump settings as needed. OR ART DIRECTOR OR ART DIRECTOR documented in this encounter Medications at Time [...] hours 4 documented as of this encounter Ordered Prescriptions Prescription Sig Dispense Quantity Refills Last Filled Start Date End Date insulin lispro (HumaLOG, ADMELOG) 100 unit/mL vial for injectionIndicatio ns:type 2 diabetes mellitus THIS IS FOR THE INSULIN PUMP: Continue Omnipod 5 insulin pump with Dexcom G6 CGM at home settings: TIME BASAL RATE TOTAL BASAL DAILY DOSE: 65.85 0330 1.7 units/hour 0800 0.8 units/hour 2000 5.8 units/hour 06/29/2022 losartan (COZAAR) 25 mg tablet Take 0.5 tablets (12.5 mg total) by mouth daily 15 tablet 11 06/30/2022 4 acetaminophen 500 mg capsule Take 2 capsules (1,000 mg total) by mouth every 6 (six) hours as needed for pain 30 tablet 1 06/29/2022 4 documented in this encounter Discharge Disposition Disposition Code Departure Means Destination Discharge to an Rehab facility [facility] documented in this encounter Progress Notes * Elsie Gonzalez RN - 06/29/2022 11:30 AM CST 06/06/22 1203 Discharge Summary Chart reviewed For Medical Necessity Does patient have a planned readmission to hospital planned? No Discharge Disposition Home;Inpatient (Acute) Rehab Hospital Specify Facility [facility] Contact Number Contact- Minerva Hurt- [phone] for report- [phone] fax [phone] Equipment/Provider Needs No Home Needs Identified Discharge Additional Assistance Does the patient need discharge transport arranged? No (family to transport to [facility]) Post Discharge Care Provider Post Discharge Care Plan DC Summary and post acute care report has been faxed to next level of careprovider (see Follow Up Providers) Patient is medically stable to discharge home today. Patient will have transportation provided by the patient's brother. Patient instructed to f/u with PCP after release from [facility]. No additional needs noted at this time. OR ART DIRECTOR OR ART DIRECTOR * Frank Bowers MD - 06/29/2022 10:12 AM CST Daily Progress Note Division of Hospital Medicine Name: Adelia Garvin Jr. Today: June 29, 2022 : 1970 Age: 51 y.o. male Admit: 06/04/2022 Bed: [id number] Subjective Chief complaint: NSTEMI Interval History: Pt feeling well this am, has no acute complaints Objective Medications: Scheduled: aspirin, 81 mg, oral, Daily atorvastatin, 80 mg, oral, Daily calcitRIOL, 0.25 mcg, oral, Daily calcium acetate(phosphat bind), 667 mg, oral, QID clopidogreL, 75 mg, oral, Daily ezetimibe, 10 mg, oral, Daily gentamicin, , topical, Daily heparin, 5,000 Units, subcutaneous, Q8H ASHLEY isosorbide mononitrate ER, 30 mg, oral, Daily losartan, 12.5 mg, oral, Daily metoprolol tartrate, 25 mg, oral, BID pantoprazole DR, 40 mg, oral, Daily polyvinyl alcohol-povidone, 1 drop, each eye, QID Infusions: INSULIN PUMP - insulin lispro (HUMALOG), 0-25 Units PRN: acetaminophen albuterol HFA dextrose OR dextrose dextrose 5% water dextrose 5% water fluticasone propionate glucagon insulin lispro lidocaine nitroglycerin ondansetron ODT OR ondansetron ramelteon Vitals: 24hr Min/Max: Temp Min: 36.8 ??C (98.2 ??F) Max: 37.2 ??C (99 ??F) Pulse Min: 70 Max: 73 BP Min: 98/54 Max: 124/52 Resp Min: 18 Max: 20 SpO2 Min: 93 % Max: 99 % Most Recent: Vitals: 06/29/22 0815 BP: Pulse: 71 Resp: Temp: SpO2: Intake/Output Summary (Last 24 hours) at 06/29/2022 1010 Last data filed at 06/29/2022 0815 Gross per 24 hour Intake 74967 ml Output 22145 ml Net -664 ml Physical Exam Constitutional: NAD, well developed, well nourished Eyes: PERRL, EOMI, anicteric ENT: NCAT, oropharynx normal, moist mucus membranes Lungs: Clear to auscultation in all lung chrales, unlabored Cardiovascular: RRR, normal S1 and S2, no murmurs, no JVD GI: Soft, non-tender, non-distended, PD catheter in place, insulin pump in place Skin: No new rashes, lesions or bruises on visible skin Extremities: Normal without edema or cyanosis Lymph: No cervical, supraclavicular, axillary or inguinal adenopathy Neurologic: AOx4, CNII-XII intact, normal strength and sensation Psychiatric: Normal affect and mood I have reviewed the patient's vital signs. Lab/Diagnostic Review: Recent Results (from the past 36 hour(s)) POCT glucose Collection Time: 06/28/22 7:41 AM Result Value Ref Range Glucose, POC 68 (L) 70 - 199 mg/dL Glucose comment 1 Glu2: RN/ Notified POCT glucose Collection Time: 06/28/22 8:02 AM Result Value Ref Range Glucose, POC 75 70 - 199 mg/dL POCT glucose Collection Time: 06/28/22 8:20 AM Result Value Ref Range Glucose, POC 95 70 - 199 mg/dL POCT glucose Collection Time: 06/28/22 8:37 AM Result Value Ref Range Glucose, POC 121 70 - 199 mg/dL POCT glucose Collection Time: 06/28/22 9:53 AM Result Value Ref Range Glucose, POC 181 70 - 199 mg/dL POCT glucose Collection Time: 06/28/22 11:42 AM Result Value Ref Range Glucose, POC 281 (H) 70 - 199 mg/dL Glucose comment 1 Glu2: RN/MD Notified POCT glucose Collection Time: 06/28/22 3:33 PM Result Value Ref Range Glucose, POC 299 (H) 70 - 199 mg/dL COVID-19 Coronavirus RNA Nasopharyngeal Collection Time: 06/28/22 3:46 PM Specimen: Nasopharyngeal Result Value Ref Range COVID-19 RNA Negative Negative POCT glucose Collection Time: 06/28/22 8:08 PM Result Value Ref Range Glucose, POC 260 (H) 70 - 199 mg/dL POCT glucose Collection Time: 06/29/22 7:43 AM Result Value Ref Range Glucose, POC 262 (H) 70 - 199 mg/dL Glucose comment 1 Glu2: RN/MD Notified I have reviewed the laboratory results. Imaging Results: FL Modified Barium Swallow W Video Narrative: EXAMINATION: MODIFIED BARIUM SWALLOW HISTORY: Concern for dysphagia. TECHNIQUE: This procedure was completed in conjunction with a Speech Language Pathologist. The patient was given barium of multiple different consistencies to swallow. Video fluoroscopy was employed during the exam. FINDINGS: Oral-pharyngeal swallow function is mildly impaired. Penetration: Yes There is penetration of thin liquids and nectar thick liquids. Penetration is sensed. The penetrated material is cleared. Aspiration: No Residue:Yes There is oral-pharyngeal residue of purees and solids. Residue is not sensed. The residual material is cleared. Other comments: None Impression: The swallowing mechanism is abnormal; see above comments. Please refer to the Speech Pathology procedure note for safe swallow recommendations as well as additional information regarding the oral-pharyngeal swallow function, plan of care, and recommended follow up. Dictated by: Adam Aiken M.D. The radiology attending physician has personally reviewed this study, and had reviewed and/or edited this written report and agrees with it. Electronically signed by: Félix Chahal M.D. I have independently reviewed and interpreted the following Bg better controlled, some low 200 Negative covid test. Assessment/Plan Cardiogenic shock (HCC) Assessment & Plan Secondary to NSTEMI, s/p Impella since removed on 06/10. Resolved. * NSTEMI (non-ST elevated myocardial infarction) ([facility]) ([facility]) Assessment & Plan With recurrent chest pain post-cath. He has [...] Pt overall improving, DC to rehab today ESRD (end stage renal disease) (CMS/HCC) ([facility]) Assessment & Plan - Renal consulted, s/p CRRT in the ICU now back on PD. Tolerated well and nephrology following - Trialysis catheter removed - Continue vitamins for renal bone mineral disease. Type 1 diabetes mellitus (HCC) Assessment & Plan A1c well controlled on admission. He uses [...] SENSITIVITY: 1:25 IAT: 4 hours TARGET: 120 If pump fails, give lispro 4 units once and restart insulin pump. If pump supplies are not available: - Lantus 35 units qAM - Humalog 10 units with meals - Continue resistant correction scale TID/HS/0200 - NPH 45 units with start of peritoneal dialysis session Atrial fibrillation ([facility]/HCC) ([facility]) Assessment & Plan Converted to NSR overnight on 06/24. CHADsVASc of 4 not on anticoagulation prior to admission. - cardiology consulted - recommended ongoing rate control - holding off on a/c with high risk for bleeding while on DAPT - reduced metop to 25mg BID in the setting of hypotension, HR 70s NSR Acute on chronic HFrEF (heart failure with reduced ejection fraction) ([facility]) Assessment & Plan C/b cardiogenic shock requiring impella in the setting of cath and AHRF 2/2 pulmonary edema, now resolved. TTE demonstrating recovered EF 65% with grade I diastolic dysfunction. - metop as above - continue low dose losartan 12.5mg daily, ok per nephro. Tolerating well - volume management per PD Anemia Assessment & Plan Stable, likely 2/2 anemia from ESRD, no evidence of bleeding. Underwent CT c/a/p without internal hematoma. - Monitor and trend Hb. Acute hypoxemic respiratory failure ([facility]) Assessment & Plan Secondary to ACS and flash pulmonary edema, since resolved and extubated on 06/19. Patient passed barium swallow on 06/21. 46 minutes spent on discharge planning and care coordination including recommendations regarding insulin pump at discharge OR ART DIRECTOR OR ART DIRECTOR * Janelle Romero, OT - 06/29/2022 9:30 AM CST Occupational Therapy Occupational Therapy Progress Note NOTE: This is a summary note of the oliver components of the treatment session. For full details, review chart for all flowsheets documented on by this occupational therapy clinician on this date. Vitalsigns documented in vital signs flowsheet. Care plan progress documented in Care Plan Activity. For questions, please review the treatment team and contact the occupational therapist currently assigned to this patient. If an occupational therapist is not assigned to this patient, please call [phone]. 06/29/22 0930 General Session Type Treatment OT Received On 06/29/22 Safe Environment Arm Band Checked;Call Light within Reach;Notified RN;Patient found in Supine;Overbed Table within Reach (up to chair) Subjective Agreeable to Therapy Family/Caregiver Present No Precautions Precautions Fall risk Pain Assessment Pain Assessment 0-10 Pain Score 0 - No pain Balance Balance Yes Static Standing Balance Static Standing-Balance Support Bilateral upper extremity supported Static Standing-Standing Surface Floor Static Standing-Level of Assistance Contact guard Static Standing-Comment/# of Minutes using WW Dynamic Standing Balance Dynamic Standing-Balance Support Unilateral upper extremity supported Dynamic Standing-Balance Forward lean;Reaching for objects Dynamic Standing-Standing Surface Floor Dynamic Standing-Level of Assistance Minimum assistance Dynamic Standing-Comments using WW; dynamic standing balance during ADLs ADL ADLS (WDL) X Grooming Grooming: Where assessed Chair Grooming: Level of assistance Moderate Assist Grooming: Assistance with Increased time to complete;Safety (unable to tolerate in standing d/t fatigue) Toileting Toileting: Where assessed Toilet Toileting: Level of assistance Moderate Assist Toileting: Assistance with Clothing management up;Clothing management down;Perineal hygiene;Posterior Bed Mobility Bed Mobility Yes Bed Mobility 1 Bed Mobility From 1 Supine Bed Mobility Type 1 To Bed Mobility to 1 Edge of bed Level of Assistance 1 Standby Assist Bed Mobility Comments 1 HOB elevated, using bed rail. Increased time, multiple scoots to advance forward enough to reach feet on floor Transfers Transfer Yes Transfer 1 Transfer From 1 Bed;Sit Transfer Type 1 To Transfer to 1 Stand Technique 1 Sit to stand Transfer Device 1 Wheeled walker Transfer Level of Assistance 1 Minimum Assist Trials/Comments 1 assist for force production Transfers 2 Transfer From 2 Toilet Transfer Type 2 To Transfer to 2 Chair with arms Technique 2 (ambulation) Transfer Device 2 Wheeled walker Transfer Level of Assistance 2 Minimum Assist Trials/Comments 2 Decreased distance for return bout from bathroom to bedside d/t fatigue; reporteddizziness with exertion Toilet Transfers Toilet Transfer From Bed Toilet Transfer Type To Toilet Transfer to Standard toilet Toilet Transfer Technique Ambulating Toilet Transfer: Equipment Wheeled walker Toilet Transfers Minimal assistance Toilet Transfers Comments steadying with ambulation; assist for sit>stand from lower height surface Cognition Arousal/Alertness Alert;Appropriate responses to stimuli Attention Span Appears intact Memory Decreased short term memory Current communication Appears Intact Orientation Oriented X4 (person, place, time, situation) Following Commands Follows multistep commands with increased time Safety Judgment Good awareness of safety precautions Awareness of Errors Good awareness of errors made Insight Fully aware of deficits Problem Solving Able to problem solve independently Compliance/Behavior Easy to engage Activity Tolerance Activity Tolerance Comments cyrus: hard (toileting) Other Comments Comments Patient tolerated session fairly well this date. Motivated to participate, utilizing intermittent seated rest breaks d/t fatigue. Reports onset of slight dizziness during toileting routine in bathroom, but recovers with sitting rest break and BP stable. Pt will benefit from transition to in tensive inpatient therapy program at d/c given baseline independence prior to admission Daily Activity - 6 Clicks Putting on and taking off regular lower body clothing 2 Bathing 2 Toileting 2 Putting on and taking off upper body clothing 3 Personal Grooming 2 Eating Meals 3 Total Score (range 6-24) 14 Score Interpretation 33.39 Assessment Problem List Decreased endurance;Decreased cognition;Decreased safe judgment during ADL;Decreased balance;Decreased functional mobility;Decreased gross motor control;Decreased ADL independence;Decreased IADL independence;Decreased ROM;Pain Barriers to Discharge Current Mobility Status;Decreased caregiver support;Cognition;Decreased safety awareness Plan Plan Continue with current plan;If this is the last note, consider this the discharge summary Recommendation/Plan OT Recommendation Inpatient Rehab Facility Patient at high risk for Falls;Readmission Recommend Inpatient Rehab/Acute Rehab due to Ability [...] disciplines to address functional deficits OT Frequency 3-5x/wk Treatment/Interventions ADL/IADL retraining;Balance Training;Bed mobility;Cognitive retraining;Compensatory technique education;Endurance training;Functional activity;Functional transfer training;Functional mobility training;Parent/caregiver training and education;Strengthening;Therapeutic activity;Therapeutic exercise;Transfer training Progress Progressing toward goals OT - Next Appointment 07/01/22 OT - OK to Discharge No Multi-Disciplinary Problems (from Occupational Therapy) Active Problems Problem: Dressings Lower Extremities Start Date: 06/25/22 Goal Start Date Expected End Date End Date STG - Patient to complete lower body dressing 06/25/22 07/08/22 -- Goal Details: With modified independence. Problem: Grooming Start Date: 06/25/22 Goal Start Date Expected End Date End Date STG - Patient will complete grooming 06/25/22 07/08/22 -- Goal Details: In standing with modified independence. Problem: Toileting Start Date: 06/25/22 Goal Start Date Expected End Date End Date STG - Patient will complete toileting tasks with 06/25/22 07/08/22 -- Goal Details: Modified independence. Problem: Transfers Start Date: 06/25/22 Goal Start Date Expected End Date End Date STG - Patient will perform toilet transfer 06/25/22 07/08/22 -- Goal Details: To standard toilet with modified independence. Problem: OT Misc Start Date: 06/25/22 Goal Start Date Expected End Date End Date OT LTG - Misc 1 06/25/22 07/08/22 -- Goal Details: Patient will demonstrate modified independence/independence with ADL task completion. OR ART DIRECTOR * Kip Julian, PT - 06/29/2022 8:53 AM CST Physical Therapy 06/29/22 0853 General PT Missed Visit Reason Patient declined OR ART DIRECTOR * Frank Bowers MD - 06/28/2022 3:30 PM CST Daily Progress Note Division of Hospital Medicine Name: Adelia Garvin Jr. Today: June 28, 2022 : 1970 Age: 51 y.o. male Admit: 06/04/2022 Bed: [id number] Subjective Chief complaint: NSTEMI Interval History: Pt feeling well, he has no complaints currently other than some fatigue and generalized weakness Objective Medications: Scheduled: aspirin, 81 mg, oral, Daily atorvastatin, 80 mg, oral, Daily calcitRIOL, 0.25 mcg, oral, Daily calcium acetate(phosphat bind), 667 mg, oral, QID clopidogreL, 75 mg, oral, Daily ezetimibe, 10 mg, oral, Daily gentamicin, , topical, Daily heparin, 5,000 Units, subcutaneous, Q8H ASHLEY isosorbide mononitrate ER, 30 mg, oral, Daily losartan, 12.5 mg, oral, Daily metoprolol tartrate, 25 mg, oral, BID pantoprazole DR, 40 mg, oral, Daily polyvinyl alcohol-povidone, 1 drop, each eye, QID [Held by Provider] ranolazine ER, 500 mg, oral, BID Infusions: peritoneal fluid with or without additives for CCPD, peritoneal fluid with or without additives for CCPD, peritoneal fluid with or without additives for CCPD, peritoneal fluid with or without additives for CCPD, INSULIN PUMP - insulin lispro (HUMALOG), 0-25 Units PRN: ??? acetaminophen ??? albuterol HFA ??? dextrose OR dextrose ??? dextrose 5% water ??? dextrose 5% water ??? fluticasone propionate ??? glucagon ??? insulin lispro ??? lidocaine ??? nitroglycerin ??? ondansetron ODT OR ondansetron ??? ramelteon Vitals: 24hr Min/Max: Temp Min: 36.4 ??C (97.5 ??F) Max: 36.7 ??C (98.1 ??F) Pulse Min: 70 Max: 73 BP Min: 124/62 Max: 125/59 Resp Min: 16 Max: 18 SpO2 Min: 94 % Max: 98 % Most Recent: Vitals: 06/28/22 0823 BP: 125/59 Pulse: 71 Resp: 18 Temp: 36.4 ??C (97.5 ??F) SpO2: 97% Intake/Output Summary (Last 24 hours) at 06/28/2022 1521 Last data filed at 06/28/2022 1300 Gross per 24 hour Intake 39233 ml Output 50045 ml Net -851 ml Physical Exam Constitutional: NAD, well developed, well nourished Eyes: PERRL, EOMI, anicteric ENT: NCAT, oropharynx normal, moist mucus membranes Lungs: Clear to auscultation in all lung charles, unlabored Cardiovascular: RRR, normal S1 and S2, no murmurs, no JVD GI: Soft, non-tender, non-distended, bowel sounds +, no organomegaly Skin: No new rashes, lesions or bruises on visible skin Extremities: Normal without edema or cyanosis Lymph: No cervical, supraclavicular, axillary or inguinal adenopathy Neurologic: AOx4, CNII-XII intact, normal strength and sensation Psychiatric: Normal affect and mood I have reviewed the patient's vital signs. Lab/Diagnostic Review: Recent Results (from the past 36 hour(s)) Basic metabolic panel Collection Time: 06/27/22 3:51 AM Result Value Ref Range Sodium 132 (L) 135 - 145 mmol/L Potassium, pl 3.1 (L) 3.3 - 4.9 mmol/L Chloride 89 (L) 97 - 110 mmol/L CO2 26 22 - 32 mmol/L Anion gap 17 (H) 2 - 15 mmol/L BUN 46 (H) 8 - 25 mg/dL Creatinine 10.21 (H) 0.80 - 1.30 mg/dL Glucose 274 (H) 70 - 199 mg/dL Calcium 8.4 (L) 8.5 - 10.3 mg/dL CBC without differential Collection Time: 06/27/22 3:51 AM Result Value Ref Range WBC 3.8 3.8 - 9.9 K/cumm Hgb 7.5 (L) 13.0 - 17.5 g/dL Hct 22.8 (L) 38.9 - 50.3 % Plt 294 150 - 400 K/cumm MPV 10.0 9.1 - 12.3 fL RBC 2.49 (L) 4.30 - 5.80 M/cumm MCV 91.6 81.3 - 96.4 fL MCH 30.1 27.1 - 33.3 pg MCHC 32.9 32.3 - 35.7 g/dL RDW CV 17.5 (H) 11.1 - 14.9 % RDW SD 57.9 (H) 35.7 - 48.1 fL NRBC abs 0.00 0.00 - 0.01 K/cumm eGFR Collection Time: 06/27/22 3:51 AM Result Value Ref Range eGFR 6 (L) 90 - 130 mL/min/1.73 m2 POCT glucose Collection Time: 06/27/22 7:54 AM Result Value Ref Range Glucose, POC 350 (H) 70 - 199 mg/dL POCT glucose Collection Time: 06/27/22 11:37 AM Result Value Ref Range Glucose, POC 228 (H) 70 - 199 mg/dL Glucose comment 1 Glu2: RN/ Notified POCT glucose Collection Time: 06/27/22 4:54 PM Result Value Ref Range Glucose, POC 143 70 - 199 mg/dL POCT glucose Collection Time: 06/27/22 7:51 PM Result Value Ref Range Glucose, POC 199 70 - 199 mg/dL POCT glucose Collection Time: 06/28/22 7:41 AM Result Value Ref Range Glucose, POC 68 (L) 70 - 199 mg/dL Glucose comment 1 Glu2: RN/ Notified POCT glucose Collection Time: 06/28/22 8:02 AM Result Value Ref Range Glucose, POC 75 70 - 199 mg/dL POCT glucose Collection Time: 06/28/22 8:20 AM Result Value Ref Range Glucose, POC 95 70 - 199 mg/dL POCT glucose Collection Time: 06/28/22 8:37 AM Result Value Ref Range Glucose, POC 121 70 - 199 mg/dL POCT glucose Collection Time: 06/28/22 9:53 AM Result Value Ref Range Glucose, POC 181 70 - 199 mg/dL POCT glucose Collection Time: 06/28/22 11:42 AM Result Value Ref Range Glucose, POC 281 (H) 70 - 199 mg/dL Glucose comment 1 Glu2: RN/ Notified I have reviewed the laboratory results. Imaging Results: FL Modified Barium Swallow W Video Narrative: EXAMINATION: MODIFIED BARIUM SWALLOW HISTORY: Concern for dysphagia. TECHNIQUE: This procedure was completed in conjunction with a Speech Language Pathologist. The patient was given barium of multiple different consistencies to swallow. Video fluoroscopy was employed during the exam. FINDINGS: Oral-pharyngeal swallow function is mildly impaired. Penetration: Yes There is penetration of thin liquids and nectar thick liquids. Penetration is sensed. The penetrated material is cleared. Aspiration: No Residue:Yes There is oral-pharyngeal residue of purees and solids. Residue is not sensed. The residual material is cleared. Other comments: None Impression: The swallowing mechanism is abnormal; see above comments. Please refer to the Speech Pathology procedure note for safe swallow recommendations as well as additional information regarding the oral-pharyngeal swallow function, plan of care, and recommended follow up. Dictated by: Adam Aiken M.D. The radiology attending physician has personally reviewed this study, and had reviewed and/or edited this written report and agrees with it. Electronically signed by: Félix Chahal M.D. Assessment/Plan Cardiogenic shock ([facility]) Assessment & Plan Secondary to NSTEMI, s/p Impella since removed on 06/10. Resolved. * NSTEMI (non-ST elevated myocardial infarction) (CMS/HCC) ([facility]) Assessment & Plan With recurrent chest pain post-cath. He has [...] dc tomorrow as pt has been accepted ESRD (end stage renal disease) (CMS/[facility]) ([facility]) Assessment & Plan - Renal consulted, s/p CRRT in the ICU now back on PD. Tolerated well and nephrology following - Trialysis catheter removed - Continue vitamins for renal bone mineral disease. Type 1 diabetes mellitus ([facility]) Assessment & Plan A1c well controlled on admission. He uses [...] resistant SSI increase NPH 45u before PD Atrial fibrillation (CMS/HCC) ([facility]) Assessment & Plan Converted to NSR overnight on 06/24. CHADsVASc of 4 not on anticoagulation prior to admission. - cardiology consulted - recommended ongoing rate control - holding off on a/c with high risk for bleeding while on DAPT - reduced metop to 25mg BID in the setting of hypotension, HR 70s NSR Acute on chronic HFrEF (heart failure with reduced ejection fraction) ([facility]) Assessment & Plan C/b cardiogenic shock requiring impella in the setting of cath and AHRF 2/2 pulmonary edema, now resolved. TTE demonstrating recovered EF 65% with grade I diastolic dysfunction. - metop as above - continue low dose losartan 12.5mg daily, ok per nephro. Tolerating well - volume management per PD Anemia Assessment & Plan Stable, likely 2/2 anemia from ESRD, no evidence of bleeding. Underwent CT c/a/p without internal hematoma. - Monitor and trend Hb. Acute hypoxemic respiratory failure (HCC) Assessment & Plan Secondary to ACS and flash pulmonary edema, since resolved and extubated on 06/19. Patient passed barium swallow on 06/21. OR ART DIRECTOR * Shelbie Garcia, RD - 06/28/2022 2:38 PM CST Nutrition Assessment Reason for Assessment: Follow Up Encounter Date: 06/28/22 2:39 PM Patient is a 51 y.o. male with chief complaint of CAD s/p PCI, T1DM, ESRD on PD, cardiogenic shock . LOS is 24 days. HPI: 51yo M with PMH DM1 on insulin pump c/b ESRD on PD and CAD s/p PCI, HFrecEF and Afib who was admitted on 06/04 from OSH for complex PCI after presenting with ACS, now s/p MARIELLA to LCx and OM bifurcation, which was c/b cardiogenic shock requiring impella and respiratory failure requiring intubation. CCU course c/b progressive ESRD requiring CRRT. Now resolved and transferred to the floor, improving. Objective Past Medical History: Diagnosis Date CAD [...] activity: Defer Alcohol Use: Not At Risk Frequency of Alcohol Consumption: Monthly or less Average Number of Drinks: 3 or 4 Frequency of Binge Drinking: Never Family History Problem Relation Age of Onset Heart attack Father Anthropometrics: Wt Readings from Last 3 Encounters: 06/28/22 120.3 kg (265 lb 3.4 oz) 01/21/21 132.9 kg (293 lb) 04/19/18 118.8 kg (262 lb) Anthropometrics Weight: 120.3 kg (265 lb 3.4 oz) Admission Weight : 142 kg Weight Change: 1.39 kg (3.08 lbs) IBW/kg (Calculated) : 75.3 kg Height: 177.8 cm (5' 10 ) Weight in (lb) to have BMI = 25: 173.9 BMI (Calculated): 38.1 Nutrition Needs Calculations: Calculated Energy Needs Using Equations Weight: 120.3 kg (265 lb 3.4 oz) Height: 177.8 cm (5' 10 ) Minute Ventilation (L/min): 6.8 L/min Estimated Protein Needs Type of Weight Used for Estimated Protein : [place] Protein Needs Based on g/k.5 Total Protein Estimated Needs (gm): 112.95 Kcal/kg Type of Weight Used for Estimated Kcals: Admission Kcal/k Total Kcal/kg Estimated Needs : 1703.71 Vital Signs: BP: 125/59 Temp: 36.4 ??C (97.5 ??F) Pulse: 71 Resp: 18 SpO2: 97 % Medications: Scheduled Meds: aspirin, 81 mg, oral, Daily atorvastatin, 80 mg, oral, Daily calcitRIOL, 0.25 mcg, oral, Daily calcium acetate(phosphat bind), 667 mg, oral, QID clopidogreL, 75 mg, oral, Daily ezetimibe, 10 mg, oral, Daily gentamicin, , topical, Daily heparin, 5,000 Units, subcutaneous, Q8H ASHLEY isosorbide mononitrate ER, 30 mg, oral, Daily losartan, 12.5 mg, oral, Daily metoprolol tartrate, 25 mg, oral, BID pantoprazole DR, 40 mg, oral, Daily polyvinyl alcohol-povidone, 1 drop, each eye, QID [Held by Provider] ranolazine ER, 500 mg, oral, BID Continuous Infusions: peritoneal fluid with or without additives for CCPD, peritoneal fluid with or without additives for CCPD, peritoneal fluid with or without additives for CCPD, peritoneal fluid with or without additives for CCPD, INSULIN PUMP - insulin lispro (HUMALOG), 0-25 Units PRN Meds: acetaminophen albuterol HFA dextrose OR dextrose dextrose 5% water dextrose 5% water fluticasone propionate glucagon insulin lispro lidocaine nitroglycerin ondansetron ODT OR ondansetron ramelteon Lab Review: Sodium Date Value Ref Range Status 06/27/2022 132 (L) 135 - 145 mmol/L Final Potassium, pl Date Value Ref Range Status 06/27/2022 3.1 (L) 3.3 - 4.9 mmol/L Final BUN Date Value Ref Range Status 06/27/2022 46 (H) 8 - 25 mg/dL Final Creatinine Date Value Ref Range Status 06/27/2022 10.21 (H) 0.80 - 1.30 mg/dL Final Calcium Date Value Ref Range Status 06/27/2022 8.4 (L) 8.5 - 10.3 mg/dL Final Lab Results Component Value Date HGBA1C 7.8 (H) 06/04/2022 HDL 34 (L) 06/04/2022 LDLCALC 82 06/04/2022 CHOL 149 06/04/2022 TRIG 183 (H) 06/21/2022 Nursing Assessment: Intake/Output Summary (Last 24 hours) at 06/28/2022 1439 Last data filed at 06/28/2022 1300 Gross per 24 hour Intake 76817 ml Output 15756 ml Net -851 ml Gastrointestinal Gastrointestinal (WDL): Within Defined Limits Abdomen Inspection: Rounded Bowel Sounds (All Quadrants): Present Palpation: No guarding Last BM Date: 06/24/22 Passing Flatus: Yes GI Symptoms: None Gastrointestinal Additional Assessments: No Last BM Date: 06/24/22 Emesis: 0 mL Rex Scale Score: 16 Skin Integrity: Cracking Edema: Mild pitting, silght indention Dietary Orders (From admission, onward) Start Ordered 06/23/22 1700 Oral Nutrition Supplements Select Supplement: Glucerna Shake - Yinka; Quantity (# of cans): 1 can All Meals Question Answer Comment Select Supplement: Glucerna Shake - Yinka Quantity (# of cans): 1 can 06/23/22 1201 06/22/22 1921 Adult Diet Restricted; 2 GM Sodium; Consistent Carbohydrate Diet effective now Comments: Heart Healthy Diet Question Answer Comment ([facility]) Diet type Restricted Fat / Sodium Restriction: 2 GM Sodium Diabetic: Consistent Carbohydrate 06/22/22 1924 06/21/22 2100 Bedtime snack At bedtime Comments: If bedtime BG is less than 100mg/dl, give patient a 15 gram carbohydrate snack. 06/21/22 1522 Impression: Followed up to assess intake. The pt states his appetite is improving. He ate 100% of his breakfastand lunch. He would like to continue to receive Glucerna shakes should he not care for his meal. Endo is following for management of his insulin pump. Pt seen by [facility]MER today. Can continue on regular textured foods and liquids. Last BM 06/27. NUTRITION DIAGNOSIS Nutrition Diagnosis 1: Predicted suboptimal energy intake Related to: Food choices Evidenced by: Patient interview INTERVENTION Continue consistent carb, 2 gm NA diet. Glucerna shakes for meal replacement if eating < 50% of meal GOALS / MONITORING: Goals: Adequate nutrition to meet estimated needs by next assessment, Tolerance of medical food supplement by next assessment Interventions: Modify supplement, Medical food supplement Monitoring and Evaluation: Appetite, Blood glucoses, Supplement tolerance, PO intake, Stool patterns, Weight changes Shelbie Garcia RD [phone] OR ART DIRECTOR * Carey East MD - 06/27/2022 4:57 PM CST Daily Progress Note Division of Hospital Medicine Name: Adelia Garvin Jr. Today: June 27, 2022 : 1970 Age: 51 y.o. male Admit: 06/04/2022 Bed: [id number] Subjective Chief complaint: CAD s/p PCI, T1DM, ESRD on PD, cardiogenic shock Interval History: - PRABHJOT overnight - BG still above goal on basal/bolus regimen, pending resumption of insulin pump He feels well. He got up to walk with nursing and feels generally weaker than usual but not unexpected. No chest pain or dyspnea with walking. Eating well. Objective Vitals: 24hr Min/Max: Temp Min: 36.6 ??C (97.9 ??F) Max: 37.2 ??C (99 ??F) Pulse Min: 69 Max: 76 BP Min: 92/36 Max: 117/73 Resp Min: 18 Max: 18 SpO2 Min: 94 % Max: 99 % Most Recent: Vitals: 06/27/22 1446 BP: 98/48 Pulse: 70 Resp: 18 Temp: 36.8 ??C (98.2 ??F) SpO2: 98% Intake/Output Summary (Last 24 hours) at 06/27/2022 1657 Last data filed at 06/27/2022 0745 Gross per 24 hour Intake 55288 ml Output 71884 ml Net -1949 ml Physical Exam Constitutional: NAD, well developed, well nourished Eyes: Conjunctiva normal, sclera anicteric Lungs: Clear to auscultation in all lung charles, breathing unlabored Cardiovascular: RRR, normal S1 and S2, no murmurs GI: Soft, NT, mildly distended, NABS Skin: No new rashes, lesions or bruises on visible skin. Former [facility] site c/d/I, covered with gauze bandage Extremities: WWP, no edema or cyanosis Neurologic: AOx4, grossly normal strength and sensation Psych: Depressed affect but improved from prior I have reviewed the patient's vital signs. Lab/Diagnostic Review: Recent Results (from the past 24 hour(s)) POCT glucose Collection Time: 06/26/22 5:53 PM Result Value Ref Range Glucose, POC 98 70 - 199 mg/dL POCT glucose Collection Time: 06/26/22 9:14 PM Result Value Ref Range Glucose, POC 184 70 - 199 mg/dL POCT glucose Collection Time: 06/27/22 1:54 AM Result Value Ref Range Glucose, POC 276 (H) 70 - 199 mg/dL Basic metabolic panel Collection Time: 06/27/22 3:51 AM Result Value Ref Range Sodium 132 (L) 135 - 145 mmol/L Potassium, pl 3.1 (L) 3.3 - 4.9 mmol/L Chloride 89 (L) 97 - 110 mmol/L CO2 26 22 - 32 mmol/L Anion gap 17 (H) 2 - 15 mmol/L BUN 46 (H) 8 - 25 mg/dL Creatinine 10.21 (H) 0.80 - 1.30 mg/dL Glucose 274 (H) 70 - 199 mg/dL Calcium 8.4 (L) 8.5 - 10.3 mg/dL CBC without differential Collection Time: 06/27/22 3:51 AM Result Value Ref Range WBC 3.8 3.8 - 9.9 K/cumm Hgb 7.5 (L) 13.0 - 17.5 g/dL Hct 22.8 (L) 38.9 - 50.3 % Plt 294 150 - 400 K/cumm MPV 10.0 9.1 - 12.3 fL RBC 2.49 (L) 4.30 - 5.80 M/cumm MCV 91.6 81.3 - 96.4 fL MCH 30.1 27.1 - 33.3 pg MCHC 32.9 32.3 - 35.7 g/dL RDW CV 17.5 (H) 11.1 - 14.9 % RDW SD 57.9 (H) 35.7 - 48.1 fL NRBC abs 0.00 0.00 - 0.01 K/cumm eGFR Collection Time: 06/27/22 3:51 AM Result Value Ref Range eGFR 6 (L) 90 - 130 mL/min/1.73 m2 POCT glucose Collection Time: 06/27/22 7:54 AM Result Value Ref Range Glucose, POC 350 (H) 70 - 199 mg/dL POCT glucose Collection Time: 06/27/22 11:37 AM Result Value Ref Range Glucose, POC 228 (H) 70 - 199 mg/dL Glucose comment 1 Glu2: RN/MD Notified POCT glucose Collection Time: 06/27/22 4:54 PM Result Value Ref Range Glucose, POC 143 70 - 199 mg/dL I have reviewed the laboratory results. Imaging Results: FL Modified Barium Swallow W Video Narrative: EXAMINATION: MODIFIED BARIUM SWALLOW HISTORY: Concern for dysphagia. TECHNIQUE: This procedure was completed in conjunction with a Speech Language Pathologist. The patient was given barium of multiple different consistencies to swallow. Video fluoroscopy was employed during the exam. FINDINGS: Oral-pharyngeal swallow function is mildly impaired. Penetration: Yes There is penetration of thin liquids and nectar thick liquids. Penetration is sensed. The penetrated material is cleared. Aspiration: No Residue:Yes There is oral-pharyngeal residue of purees and solids. Residue is not sensed. The residual material is cleared. Other comments: None Impression: The swallowing mechanism is abnormal; see above comments. Please refer to the Speech Pathology procedure note for safe swallow recommendations as well as additional information regarding the oral-pharyngeal swallow function, plan of care, and recommended follow up. Dictated by: Adam Aiken M.D. The radiology attending physician has personally reviewed this study, and had reviewed and/or edited this written report and agrees with it. Electronically signed by: Félix Chahal M.D. I have independently reviewed and interpreted: - telemetry, which showed NSR Assessment/Plan Assessment & Plan 51yo M with PMH DM1 on insulin pump c/b ESRD on PD and CAD s/p PCI, HFrecEF and Afib who was admitted on 06/04 from OSH for complex PCI after presenting with ACS, now s/p MARIELLA to LCx and OM bifurcation, which was c/b cardiogenic shock requiring impella and respiratory failure requiring intubation. CCU course c/b progressive ESRD requiring CRRT. Now resolved and transferred to the floor, improving. Atrial fibrillation (CMS/HCC) ([facility]) Assessment & Plan Converted to NSR overnight on 06/24. CHADsVASc of 4 not on anticoagulation prior to admission. - cardiology consulted - recommended ongoing rate control - holding off on a/c with high risk for bleeding while on DAPT - reduced metop to 25mg BID in the setting of hypotension, HR 70s NSR Acute on chronic HFrEF (heart failure with reduced ejection fraction) ([facility]) Assessment & Plan C/b cardiogenic shock requiring impella in the setting of cath and AHRF 2/2 pulmonary edema, now resolved. TTE demonstrating recovered EF 65% with grade I diastolic dysfunction. - metop as above - continue low dose losartan 12.5mg daily, ok per nephro - volume management per PD ESRD (end stage renal disease) ([facility]) ([facility]) Assessment & Plan - Renal consulted, s/p CRRT in the ICU now back on PD. - Continue vitamins for renal bone mineral disease - continue phoslo Type 1 diabetes mellitus ([facility]) Assessment & Plan A1c well controlled on admission. He uses an insulin pump at home, since admission has been followed by endocrine service on basal bolus regimen with NPH for PD/hyperglycemic episodes. Hospital course has been c/b by both hypo and hyperglycemia intermittently. - endo consulted, appreciate recs -- anticipate resuming home insulin pump today - basal bolus regimen (if no insulin pump) lantus 35 qAM premeal lispro 10u Continue resistant SSI increase NPH 45u before PD * NSTEMI (non-ST elevated myocardial infarction) ([facility]) ([facility]) Assessment & Plan With recurrent chest pain post-cath. He has multiple risk factors for CAD, now s/p complex PCI to LCx and OM bifurcation with MARIELLA, though still with significant residual disease. CP free since 06/24. - Continue DAPT with aspirin, Plavix and atorvastatin - continue home imdur per cards, holding ranolazine in the setting of hypotension - metop, ARB as above - continue tele Anemia Assessment & Plan Stable, likely 2/2 anemia from ESRD, no evidence of bleeding. Underwent CT c/a/p without internal hematoma. - Monitor and trend Hb. - empirically started on BID PPI while in ICU with concern for ?bleeding --> has been on for >2 weeks, decreased to daily Acute hypoxemic respiratory failure (HCC) Assessment & Plan Secondary to ACS and flash pulmonary edema, since resolved and extubated on 06/19. Patient passed barium swallow on 06/21. Currently on RA. Cardiogenic shock ([facility]) Assessment & Plan Secondary to NSTEMI, s/p Impella since removed on 06/10. Resolved. Post-acute planning: - inpatient acute rehab per PT recs, CM aware and searching for facilities OR ART DIRECTOR * Arleen Andre MD - 06/27/2022 3:50 PM CST ASSESSMENT AND RECOMMENDATIONS ESRD: He is doing well on the current PD regimen. Ultrafilters approximately 4696-8164 ml/day. Continue current regimen Hypokalemia: Start Kcl 20 mEq po bid Hyperphosphatemia: Pt is on calcium acetate but has to be given with meals. Please change to 667 mg2 tabs tid with meals instead of qid Anemia of ESRD: Please start Epo 4000 units 3 times/week. NEPHROLOGY PROCEDURE NOTE Date of Service: 06/27/2022 I saw and evaluated the patient during PD. Indication was ESRD. My evaluation during the procedure showed the following: Dialysis Type: Continuous Cycling Peritoneal Dialysis Machine Type: [facility] Diane[facility] Solution: Dextrose 2.5% in 5000 mL (+ 7.5% last fill) Dwell Time (min): 77 min Drain Time (min): 39 min Initial Drain Volume (mL): 690 mL Last Fill Volume (mL): 785 mL Fill Volume In (mL): 56997 mL Effluent Volume Out (mL): 13997 ml Balance This Exchange (mL): 1944 mL Temp: [36.6 ??C (97.9 ??F)-37.2 ??C (99 ??F)] 36.8 ??C (98.2 ??F) Pulse: [69-76] 70 BP: (92-117)/(36-73) 98/48 Resp: [18] 18 SpO2: [94 %-99 %] 98 % FiO2 (%): [30 %] 30 % Vitals: 06/27/22 0937 06/27/22 1000 06/27/22 1021 06/27/22 1446 BP: 107/53 108/63 101/58 98/48 BP Location: Right arm Right arm Right arm Right arm Patient Position: Lying Sitting Sitting Lying;HOB 30 degrees Pulse: 75 76 74 70 Resp: 18 Temp: 36.8 ??C (98.2 ??F) TempSrc: Oral SpO2: 95% 98% 97% 98% Weight: Height: PD CATHETER: PD Catheter Site: LLQ PD Site Assessment: other findings scaly skin around the site Other findings: pleasant, conversing appropriately. Mild peripheral edema I/O last 2 completed shifts: In: 38270 [P.O.:440; Other:21177] Out: 61318 [Urine:300; Other:50254] I have reviewed current medications and the following labs. aspirin, 81 mg, oral, Daily atorvastatin, 80 mg, oral, Daily calcitRIOL, 0.25 mcg, oral, Daily calcium acetate(phosphat bind), 667 mg, oral, QID clopidogreL, 75 mg, oral, Daily ezetimibe, 10 mg, oral, Daily heparin, 5,000 Units, subcutaneous, Q8H ASHLEY INSULIN PUMP REFILL lispro, 300 Units, other, Once isosorbide mononitrate ER, 30 mg, oral, Daily losartan, 12.5 mg, oral, Daily metoprolol tartrate, 25 mg, oral, BID pantoprazole DR, 40 mg, oral, Daily polyvinyl alcohol-povidone, 1 drop, each eye, QID [Held by Provider] ranolazine ER, 500 mg, oral, BID peritoneal fluid with or without additives for CCPD, peritoneal fluid with or without additives for CCPD, peritoneal fluid with or without additives for CCPD, peritoneal fluid with or without additives for CAPD, INSULIN PUMP - insulin lispro (HUMALOG), 0-25 Units Recent Labs Lab Units 06/27/22 0351 06/26/22 0323 06/24/22 0410 WBC K/cumm 3.8 4.1 4.3 HEMOGLOBIN g/dL 7.5* 7.6* 7.9* PLATELETS K/cumm 294 250 206 Recent Labs Lab Units 06/27/22 0351 06/26/22 0323 06/25/22 0436 06/23/22 1435 06/23/22 1401 06/23/22 0421 06/22/22 2128 06/22/22 1521 06/21/22 2155 06/21/22 0838 SODIUM mmol/L 132* 134* 135 < > 136 -- -- 138 136 139 POTASSIUM PLASMA mmol/L 3.1* 3.6 3.9 < > 3.4 -- -- 3.7 4.0 4.0 CHLORIDE mmol/L 89* 91* 93* < > 96* -- -- 99 98 101 CO2 mmol/L 26 26 28 < > 25 -- -- 27 24 27 BUN SERUM mg/dL 46* 47* 44* < > 45* -- -- 42* 41* 36* CREATININE mg/dL 10.21* 10.28* 9.57* < > 8.21* -- -- 7.25* 6.03* 5.26* ALBUMIN g/dL -- -- -- -- -- -- -- 2.9* 2.7* 2.7* CALCIUM mg/dL 8.4* 8.5 8.6 < > 8.3* -- -- 8.6 8.4* 8.4* MAGNESIUM mg/dL -- -- -- -- 2.8* 2.9* -- 2.9* 2.8* 2.8* PHOSPHORUS PLASMA mg/dL -- -- 7.9* -- 5.2* -- 5.8* -- 4.8* -- < > = values in this interval not displayed. Lab Results Component Value Date CALCIUM 8.4 (L) 06/27/2022 CAION 4.62 06/07/2022 PHOS 7.9 (H) 06/25/2022 Lab Results Component Value Date IRON 50 06/07/2022 TIBC 130 (L) 06/07/2022 TRANSFERSAT 38 06/07/2022 FERRITIN 2,062 (H) 06/07/2022 Arleen Andre MD publishing systems analyst Division of Nephrology OR ART DIRECTOR * So Lawrence, OT - 06/27/2022 9:37 AM CST Occupational Therapy Occupational Therapy Progress Note NOTE: This is a summary note of the oliver components of the treatment session. For full details, review chart for all flowsheets documented on by this occupational therapy clinician on this date. Vitalsigns documented in vital signs flowsheet. Care plan progress documented in Care Plan Activity. For questions, please review the treatment team and contact the occupational therapist currently assigned to this patient. If an occupational therapist is not assigned to this patient, please call [phone]. 06/27/22 0937 General Session Type Treatment OT Received On 06/27/22 Safe Environment Arm Band Checked;Call Light within Reach;Notified RN;Patient found in Supine (Pt. in chair at end of session.) Subjective Agreeable to Therapy Family/Caregiver Present No Precautions Precautions Fall risk Precaution Comments PPE: [id number], gloves Pain Assessment Pain Assessment 0-10 Pain Score 2 Pain Orientation Generalized Balance Balance Yes Static Sitting Balance Static Sitting-Balance Support No upper extremity supported;Feet supported Static Sitting-Sitting Surface Bed;Chair Static Sitting-Level of Assistance Independent Dynamic Sitting Balance Dynamic Sitting-Balance Support No upper extremity supported;Feet supported Dynamic Sitting-Balance Lateral lean;Forward lean;Reaching for objects;Reaching across midline Dynamic Sitting-Sitting Surface Bed (Toilet) Dynamic Sitting-Level of Assistance Distant supervision Static Standing Balance Static Standing-Balance Support Bilateral upper extremity supported Static Standing-Standing Surface Floor Static Standing-Level of Assistance Minimum assistance Dynamic Standing Balance Dynamic Standing-Balance Support Unilateral upper extremity supported;No upper extremity supported Dynamic Standing-Balance Lateral lean;Forward lean;Reaching for objects;Reaching across midline Dynamic Standing-Standing Surface Floor Dynamic Standing-Level of Assistance Minimum assistance Dynamic Standing-Comments Limited dynamic standing tolerance during ADLs after ambulation to bathroom (required >2 minute seated rest break) Grooming Grooming: Where assessed Chair Grooming: Level of assistance Moderate Assist (Set up task; Total balance) Grooming: Assistance with Other (Comment) (Unable to tolerate prolonged standing for task performance) Toileting Toileting: Where assessed Toilet Toileting: Level of assistance Moderate Assist (Mod task; Min balance) Toileting: Assistance with Posterior;Perineal hygiene;Clothing management up;Clothing management down Bed Mobility Bed Mobility Yes Bed Mobility 1 Bed Mobility From 1 Supine (HOB flat) Bed Mobility Type 1 To Bed Mobility to 1 Edge of bed Level of Assistance 1 Standby Assist Bed Mobility Comments 1 Increased time; compensatory movements for force production; SBA for balance Transfers Transfer Yes (Gait belt used for all OOB activity) Transfer 1 Transfer From 1 Sit Transfer Type 1 To and from Transfer to 1 Stand Technique 1 Sit to stand;Stand to sit Transfer Device 1 Wheeled walker Transfer Level of Assistance 1 Minimum Assist Trials/Comments 1 Assist for force production and controlled descent; Min cues for optimal postioning and hand placement. 3 trials (1 EOB, 2 toilet height) Transfers 2 Trials/Comments 2 Patient performed functional room mobility to bathroom (~12-15 feet) with wheeledwalker and min assist/increased time. Patient required seated rest break 2/2 dizziness/fatigue. Toilet Transfers Toilet Transfer Type To and from Toilet Transfer to Standard toilet Toilet Transfer Technique Ambulating Toilet Transfer: Equipment Wheeled walker;Grab bar Toilet Transfers Minimal assistance Toilet Transfers Comments Assist for force production and controlled descent; Min cues for optimal postioning and hand placement Cognition Cognition Comments Verbalized awareness of slowed cognition/processing speed during admission. Patient educated on potential impact on IADL task management (medication) and patient verbalized understanding and use of compensatory strategies and/or assistance to ensure accurate management. Arousal/Alertness Appropriate responses to stimuli;Delayed responses to stimuli Attention Span Appears intact;Controlled environment Current communication Appears Intact Orientation Oriented X4 (person, place, time, situation) Following Commands Follows multistep commands with increased time Safety Judgment Good awareness of safety precautions Awareness of Errors Good awareness of errors made Problem Solving Assistance required to implement solutions;Assistance required to generate solutions Compliance/Behavior Easy to engage Activity Tolerance Activity Tolerance Comments CYRUS: Hard Other Comments Comments Patient presents with dizziness following mobility this date VSS and RN notified; Delayed processing speed/motor planning observed. Daily Activity - 6 Clicks Putting on and taking off regular lower body clothing 2 Bathing 2 Toileting 2 Putting on and taking off upper body clothing 3 Personal Grooming 2 Eating Meals 3 Total Score (range 6-24) 14 Score Interpretation 33.39 Assessment Problem List Decreased cognition;Decreased safe judgment during ADL;Decreased endurance;Decreased balance;Decreased functional mobility;Decreased ADL independence;Decreased IADL independence Barriers to Discharge Current Mobility Status;Decreased caregiver support;Cognition (Current ADL status; Fall risk) Plan Plan Continue with current plan;If this is the last note, consider this the discharge summary Recommendation/Plan OT Recommendation Inpatient Rehab Facility Patient at high risk [...] minutes per week;Highly motivated to participate in therapy;Requires greater than 25% physical assistance with most mobility tasks;Requires greater than 25% physical assi stance with most ADL tasks;Not at baseline due to impaired ability to complete ADLs;Impaired ability to complete functional mobility OT Frequency 3-5x/wk Treatment/Interventions ADL/IADL retraining;Balance Training;Compensatory technique education;Cognitive retraining;Endurance training;Functional activity;Functional mobility training;Functional transfer training;Therapeutic exercise;Therapeutic activity;Strengthening Progress Slow progress, medical status limitations OT - Next Appointment 06/29/22 OT - OK to Discharge No Multi-Disciplinary Problems (from Occupational Therapy) Active Problems Problem: Dressings Lower Extremities Start Date: 06/25/22 Goal Start Date Expected End Date End Date STG - Patient to complete lower body dressing 06/25/22 07/08/22 -- Goal Details: With modified independence. Problem: Grooming Start Date: 06/25/22 Goal Start Date Expected End Date End Date STG - Patient will complete grooming 06/25/22 07/08/22 -- Goal Details: In standing with modified independence. Problem: Toileting Start Date: 06/25/22 Goal Start Date Expected End Date End Date STG - Patient will complete toileting tasks with 06/25/22 07/08/22 -- Goal Details: Modified independence. Problem: Transfers Start Date: 06/25/22 Goal Start Date Expected End Date End Date STG - Patient will perform toilet transfer 06/25/22 07/08/22 -- Goal Details: To standard toilet with modified independence. Problem: OT Misc Start Date: 06/25/22 Goal Start Date Expected End Date End Date OT LTG - Misc 1 06/25/22 07/08/22 -- Goal Details: Patient will demonstrate modified independence/independence with ADL task completion. OR ART DIRECTOR * Carlos Dupree MD - 06/26/2022 4:13 PM CST Endocrinology & Diabetes Progress Note Patient: Adelia Garvin Jr., 51 y.o. male (: 1970) Room: [place] [id number] ( ) LOS: 22 Adelia Garvin Jr. is a 51 y.o. male with PMH significant for T1DM on insulin pump, atrial fibrillation, HTN, HLD, CAD s/p PCI, ESRD on PD, and hyperparathyroidism who presented to the hospital with weakness, N/V, diarrhea and chest pain. Hospital course complicated by respiratory failure requiring intubation, cardiogenic shock and agitation. The Endocrinology/Diabetes Service is providing diabetes/insulin pump management and discharge planning recommendations during this hospitalization. Interval Events & Subjective There were no acute events overnight. Mr. Garvin reports his appetite is so- so. I'm tired, but otherwise OK . Denies nausea/vomiting/diarrhea, chest pain, shortness of breath, fever or chills today. Peritoneal dialysis continues during night. Voiding without difficulty; passing flatus, BM last night. Diet: Adult Diet Restricted; 2 GM Sodium; Consistent Carbohydrate Over the previous 24 hours, blood glucose not at target with range of 202-335 mg/dl with 78 units TDD insulin coverage. Target inpatient blood glucose is 100- 180 mg/dl. AM blood glucose was 415 mg/dl; treated with lispro 10 units subcutaneously. Peritoneal dialysis and D10W bolus of 250 ml likely contributed to severe hyperglycemia this morning. Diet: Adult Diet Restricted; 2 GM Sodium; Consistent Carbohydrate Recent Labs Lab Units 06/26/22 1316 06/26/22 1109 06/26/22 0907 06/26/22 0725 06/26/22 0323 06/26/22 0132 06/25/22 2102 06/25/22 1830 06/25/22 1621 06/25/22 1142 GLUCOSE mg/dL -- -- -- -- 335* -- -- -- -- -- POC GLUCOSE MONITOR mg/dL 202* 320* 400* 393* -- 334* 257* 223* 241* 296* Interval Review of Systems Twelve point ROS reviewed and negative except as noted in HPI. All other systems negative. Vitals & Exam Temp: [36.9 ??C (98.4 ??F)-37.2 ??C (99 ??F)] 36.9 ??C (98.4 ??F) Pulse: [62-80] 79 BP: (86-116)/(40-54) 86/40 Resp: [18-20] 18 SpO2: [99 %] 99 % I/O this shift: In: - Out: 300 [Urine:300] Physical Exam Gen : no acute distress, alert, appropriate, cooperative, appears stated age, well-developed, well-nourished HENT : normocephalic, atraumatic, moist mucus membranes Eyes : conjunctiva clear, anicteric, no proptosis/exophthalmos/lid lag Pulm : non-labored, on room air Extr : atraumatic, no cyanosis/clubbing/edema Skin : turgor normal, no rashes/wounds/lesions Neuro : alert, speech fluent, comprehension intact, moving all extremities Psych : cooperative, appropriate affect & mood, good insight & judgment Data Medications, labs, imaging, and diagnostics independently reviewed in Epic and commented on below. Lab Results Component Value Date TSH 0.80 03/21/2017 Lab Results Component Value Date CHOL 149 06/04/2022 TRIG 183 (H) 06/21/2022 HDL 34 (L) 06/04/2022 LDLCALC 82 06/04/2022 Lab Results Component Value Date 25HYDROVITD 22.7 (L) 03/22/2017 Lab Results Component Value Date HGBA1C 7.8 (H) 06/04/2022 Assessment & Plan 51 y.o. male with PMH significant for T1DM on insulin pump, atrial fibrillation, HTN, HLD, CAD s/p PCI, ESRD on PD, and hyperparathyroidism who presented to the hospital with weakness, N/V, diarrhea and chest pain. Hospital course complicated by respiratory failure requiring intubation, cardiogenicshock and agitation. 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, with prison use of insulin, complicated by ESRD on PD, CAD s/p PCI, CHF - HbA1c 7.4% - Uses Omnipod and Dexcom G6 at home, not currently on this- doesn't have the supplies -On significantly higher basal rates on pump at night due to peritoneal dialysis -home settings: Basal rate 0330 >>1.7 0800 >> 0.8 2000 >> 5.8 ICR1:6.5 ISF1:25 [id number] TIA 4 Inpatient glycemic management complicated by variable oral intake, stress, impaired renal function and acute illness. Glycemia trending up overnight with resumption of peritoneal dialysis recommend increasing basal and bolus insulin with meals and increasing the NPH dose with peritoneal dialysis today. We will continue to intensely monitor blood glucose and titrate insulin as needed to optimize glycemic control toavoid hypoglycemic/hyperglycemic events. Recommendations for diabetes management were discussed with the primary team. Recommendations: - continue Lantus 33 units qAM - continue Humalog 8 units with meals - Continue resistant correction scale TID/HS/0200 - Increase NPH from 35 units to 45 units with start of peritoneal dialysis session - POC glucoses TID/HS/0200 Tried to start his OmniPod5 and Dexcom G6; however, he does not have his cell phone with Zoie to control the system and he does not remember his logon information to use the control unit provided withthe starter kit. Will help start this when he obtains his cell phone or logon information. Discharge recommendations: - TBD # ESRD on PD - Serum Cr = 3.87=>5.26=>6.03=>7.25=>8.83 today - CKD and ESRD are independent risk factors for hypoglycemia ## Discharge Planning - Follow-up with home green house manager -- Carlos Dupree MD Endocrinology, Metabolism, & Lipid Research Contact Info: New Consults: [phone]) General Endocrine (Non-Diabetes): [phone] (Check 'Treatment Team' assignment for Diabetes 1 vs 2 vs 3) Diabetes 1: Diabetes Fellow: [phone] Diabetes 2: Dora Delarosa, CHIEF AIRLINE RADIO OPERATOR: [phone] Diabetes 3: See Treatment Team Provider (or call Dora Delarosa, above) Diabetes After-Hours & Weekends: Diabetes Fellow OR ART DIRECTOR * Carey East MD - 06/26/2022 12:39 PM CST Daily Progress Note Division of Hospital Medicine Name: Adelia Garvin Jr. Today: June 26, 2022 : 1970 Age: 51 y.o. male Admit: 06/04/2022 Bed: [id number] Subjective Chief complaint: CAD s/p PCI, T1DM, ESRD on PD, cardiogenic shock Interval History: - remains hyperglycemic after adjustment of insulin regimen, no changes recommended by endo yesterday - s/p removal of trialysis line Feeling well this morning, eating breakfast. Looking forward to getting up and going for a walk with nursing today. He's worried about his glucose being so high, wants to resume his pump today. Objective Vitals: 24hr Min/Max: Temp Min: 36.8 ??C (98.2 ??F) Max: 37.4 ??C (99.3 ??F) Pulse Min: 62 Max: 77 BP Min: 83/30 Max: 116/53 Resp Min: 18 Max: 20 SpO2 Min: 92 % Max: 99 % Most Recent: Vitals: 06/26/22 1210 BP: Pulse: 72 Resp: Temp: SpO2: Intake/Output Summary (Last 24 hours) at 06/26/2022 1239 Last data filed at 06/26/2022 1110 Gross per 24 hour Intake 95468 ml Output 48764 ml Net -1847 ml Physical Exam Constitutional: NAD, well developed, well nourished Eyes: Conjunctiva normal, sclera anicteric Lungs: Clear to auscultation in all lung charles, breathing unlabored Cardiovascular: RRR, normal S1 and S2, no murmurs GI: Soft, NT, mildly distended, NABS Skin: No new rashes, lesions or bruises on visible skin. Former TDC site c/d/I, covered with gauze bandage Extremities: WWP, no edema or cyanosis Neurologic: AOx4, grossly normal strength and sensation Psych: Depressed affect but improved from prior I have reviewed the patient's vital signs. Lab/Diagnostic Review: Recent Results (from the past 24 hour(s)) POCT glucose Collection Time: 06/25/22 4:21 PM Result Value Ref Range Glucose, POC 241 (H) 70 - 199 mg/dL Glucose comment 1 Glu2: RN/MD Notified POCT glucose Collection Time: 06/25/22 6:30 PM Result Value Ref Range Glucose, POC 223 (H) 70 - 199 mg/dL POCT glucose Collection Time: 06/25/22 9:02 PM Result Value Ref Range Glucose, POC 257 (H) 70 - 199 mg/dL POCT glucose Collection Time: 06/26/22 1:32 AM Result Value Ref Range Glucose, POC 334 (H) 70 - 199 mg/dL Basic metabolic panel Collection Time: 06/26/22 3:23 AM Result Value Ref Range Sodium 134 (L) 135 - 145 mmol/L Potassium, pl 3.6 3.3 - 4.9 mmol/L Chloride 91 (L) 97 - 110 mmol/L CO2 26 22 - 32 mmol/L Anion gap 17 (H) 2 - 15 mmol/L BUN 47 (H) 8 - 25 mg/dL Creatinine 10.28 (H) 0.80 - 1.30 mg/dL Glucose 335 (H) 70 - 199 mg/dL Calcium 8.5 8.5 - 10.3 mg/dL CBC without differential Collection Time: 06/26/22 3:23 AM Result Value Ref Range WBC 4.1 3.8 - 9.9 K/cumm Hgb 7.6 (L) 13.0 - 17.5 g/dL Hct 23.3 (L) 38.9 - 50.3 % Plt 250 150 - 400 K/cumm MPV 10.7 9.1 - 12.3 fL RBC 2.49 (L) 4.30 - 5.80 M/cumm MCV 93.6 81.3 - 96.4 fL MCH 30.5 27.1 - 33.3 pg MCHC 32.6 32.3 - 35.7 g/dL RDW CV 17.8 (H) 11.1 - 14.9 % RDW SD 59.3 (H) 35.7 - 48.1 fL NRBC abs 0.00 0.00 - 0.01 K/cumm eGFR Collection Time: 06/26/22 3:23 AM Result Value Ref Range eGFR 5 (L) 90 - 130 mL/min/1.73 m2 POCT glucose Collection Time: 06/26/22 7:25 AM Result Value Ref Range Glucose, POC 393 (H) 70 - 199 mg/dL Glucose comment 1 Glu2: RN/ Notified POCT glucose Collection Time: 06/26/22 9:07 AM Result Value Ref Range Glucose, POC 400 (H) 70 - 199 mg/dL POCT glucose Collection Time: 06/26/22 11:09 AM Result Value Ref Range Glucose, POC 320 (H) 70 - 199 mg/dL Glucose comment 1 Glu2: RN/MD Notified I have reviewed the laboratory results. Imaging Results: FL Modified Barium Swallow W Video Narrative: EXAMINATION: MODIFIED BARIUM SWALLOW HISTORY: Concern for dysphagia. TECHNIQUE: This procedure was completed in conjunction with a Speech Language Pathologist. The patient was given barium of multiple different consistencies to swallow. Video fluoroscopy was employed during the exam. FINDINGS: Oral-pharyngeal swallow function is mildly impaired. Penetration: Yes There is penetration of thin liquids and nectar thick liquids. Penetration is sensed. The penetrated material is cleared. Aspiration: No Residue:Yes There is oral-pharyngeal residue of purees and solids. Residue is not sensed. The residual material is cleared. Other comments: None Impression: The swallowing mechanism is abnormal; see above comments. Please refer to the Speech Pathology procedure note for safe swallow recommendations as well as additional information regarding the oral-pharyngeal swallow function, plan of care, and recommended follow up. Dictated by: Adam Aiken M.D. The radiology attending physician has personally reviewed this study, and had reviewed and/or edited this written report and agrees with it. Electronically signed by: Félix Chahal M.D. I have independently reviewed and interpreted: - telemetry, which showed NSR Assessment/Plan Assessment & Plan 51yo M with PMH DM1 on insulin pump c/b ESRD on PD and CAD s/p PCI, HFrecEF and Afib who was admitted on 06/04 from OSH for complex PCI after presenting with ACS, now s/p MARIELLA to LCx and OM bifurcation, which was c/b cardiogenic shock requiring impella and respiratory failure requiring intubation. CCU course c/b progressive ESRD requiring CRRT. Now resolved and transferred to the floor, improving. Atrial fibrillation (CMS/HCC) ([facility]) Assessment & Plan Converted to NSR overnight on 06/24. CHADsVASc of 4 not on anticoagulation prior to admission. - cardiology consulted - recommended ongoing rate control - holding off on a/c with high risk for bleeding while on DAPT - reduce metop to 25mg BID today in the setting of hypotension, HR 60s Acute on chronic HFrEF (heart failure with reduced ejection fraction) ([facility]) Assessment & Plan C/b cardiogenic shock requiring impella in the setting of cath and AHRF 2/2 pulmonary edema, now resolved. TTE demonstrating recovered EF 65% with grade I diastolic dysfunction. - metop as above - continue low dose losartan 12.5mg daily, ok per nephro - volume management per PD ESRD (end stage renal disease) ([facility]) ([facility]) Assessment & Plan - Renal consulted, s/p CRRT in the ICU now back on PD. - Trialysis catheter still in place --> removed today - Continue vitamins for renal bone mineral disease - resume phoslo today Type 1 diabetes mellitus ([facility]) Assessment & Plan A1c well controlled on admission. He uses an insulin pump at home, since admission has been followed by endocrine service on basal bolus regimen with NPH for PD/hyperglycemic episodes. Hospital course has been c/b by both hypo and hyperglycemia intermittently. - endo consulted, appreciate recs -- anticipate resuming home insulin pump today - basal bolus regimen (pending insulin pump) increase lantus 35 qAM increase premeal lispro 10u Continue resistant SSI increase NPH 40u before PD * NSTEMI (non-ST elevated myocardial infarction) ([facility]) ([facility]) Assessment & Plan With recurrent chest pain. He has multiple risk factors for CAD, now s/p complex PCI to LCx and OM bifurcation with MARIELLA, though still with significant residual disease. CP free since 06/24. - Continue DAPT with aspirin, Plavix and atorvastatin - continue home imdur and ranolazine per cards - continue tele Anemia Assessment & Plan Stable, likely 2/2 anemia from ESRD, no evidence of bleeding. Underwent CT c/a/p without internal hematoma. - Monitor and trend Hb. - empirically started on BID PPI while in ICU with concern for ?bleeding --> has been on for >2 weeks, decreased to daily 06/25 Acute hypoxemic respiratory failure (HCC) Assessment & Plan Secondary to ACS and flash pulmonary edema, since resolved and extubated on 06/19. Patient passed barium swallow on 06/21. Currently on RA. Cardiogenic shock ([facility]) Assessment & Plan Secondary to NSTEMI, s/p Impella since removed on 06/10. Resolved. Post-acute planning: - inpatient acute rehab per PT recs CM aware OR ART DIRECTOR * Carey East MD - 06/25/2022 11:51 AM CDT Daily Progress Note Division of Hospital Medicine Name: Adelia Garvin Jr. Today: June 25, 2022 : 1970 Age: 51 y.o. male Admit: 06/04/2022 Bed: [id number] Subjective Chief complaint: CAD s/p PCI, T1DM, ESRD on PD, cardiogenic shock Interval History: - remains hyperglycemic after adjustment of insulin regimen, though somewhat improved. No hypoglycemia noted - UF 3L overnight Feeling well this morning, eating breakfast. No further chest pain. Objective Vitals: 24hr Min/Max: Temp Min: 36.8 ??C (98.2 ??F) Max: 37.9 ??C (100.2 ??F) Pulse Min: 81 Max: 102 BP Min: 105/50 Max: 124/62 Resp Min: 18 Max: 18 SpO2 Min: 93 % Max: 100 % Most Recent: Vitals: 06/25/22 0941 BP: 118/63 Pulse: Resp: Temp: SpO2: Intake/Output Summary (Last 24 hours) at 06/25/2022 1151 Last data filed at 06/25/2022 0600 Gross per 24 hour Intake 12788 ml Output 80676 ml Net -2404 ml Physical Exam Constitutional: NAD, well developed, well nourished Eyes: Conjunctiva normal, sclera anicteric Lungs: Clear to auscultation in all lung charles, breathing unlabored Cardiovascular: RRR, normal S1 and S2, no murmurs GI: Soft, NT, mildly distended, NABS Skin: No new rashes, lesions or bruises on visible skin. TDC R chest without surrounding hematoma or erythema. Extremities: WWP, no edema or cyanosis Neurologic: AOx4, grossly normal strength and sensation Psych: Depressed affect, +psychomotor slowing in conversation I have reviewed the patient's vital signs. Lab/Diagnostic Review: Recent Results (from the past 24 hour(s)) POCT glucose Collection Time: 06/24/22 12:53 PM Result Value Ref Range Glucose, POC 275 (H) 70 - 199 mg/dL Glucose comment 1 Glu2: RN/MD Notified POCT glucose Collection Time: 06/24/22 4:55 PM Result Value Ref Range Glucose, POC 185 70 - 199 mg/dL POCT glucose Collection Time: 06/24/22 8:01 PM Result Value Ref Range Glucose, POC 246 (H) 70 - 199 mg/dL POCT glucose Collection Time: 06/25/22 1:41 AM Result Value Ref Range Glucose, POC 265 (H) 70 - 199 mg/dL Basic metabolic panel Collection Time: 06/25/22 4:36 AM Result Value Ref Range Sodium 135 135 - 145 mmol/L Potassium, pl 3.9 3.3 - 4.9 mmol/L Chloride 93 (L) 97 - 110 mmol/L CO2 28 22 - 32 mmol/L Anion gap 14 2 - 15 mmol/L BUN 44 (H) 8 - 25 mg/dL Creatinine 9.57 (H) 0.80 - 1.30 mg/dL Glucose 281 (H) 70 - 199 mg/dL Calcium 8.6 8.5 - 10.3 mg/dL Phosphorus Collection Time: 06/25/22 4:36 AM Result Value Ref Range Phosphorus, pl 7.9 (H) 2.3 - 4.5 mg/dL eGFR Collection Time: 06/25/22 4:36 AM Result Value Ref Range eGFR 6 (L) 90 - 130 mL/min/1.73 m2 POCT glucose Collection Time: 06/25/22 7:42 AM Result Value Ref Range Glucose, POC 363 (H) 70 - 199 mg/dL Glucose comment 1 Glu2: RN/ Notified POCT glucose Collection Time: 06/25/22 11:42 AM Result Value Ref Range Glucose, POC 296 (H) 70 - 199 mg/dL Glucose comment 1 Glu2: RN/ Notified I have reviewed the laboratory results. Imaging Results: FL Modified Barium Swallow W Video Narrative: EXAMINATION: MODIFIED BARIUM SWALLOW HISTORY: Concern for dysphagia. TECHNIQUE: This procedure was completed in conjunction with a Speech Language Pathologist. The patient was given barium of multiple different consistencies to swallow. Video fluoroscopy was employed during the exam. FINDINGS: Oral-pharyngeal swallow function is mildly impaired. Penetration: Yes There is penetration of thin liquids and nectar thick liquids. Penetration is sensed. The penetrated material is cleared. Aspiration: No Residue:Yes There is oral-pharyngeal residue of purees and solids. Residue is not sensed. The residual material is cleared. Other comments: None Impression: The swallowing mechanism is abnormal; see above comments. Please refer to the Speech Pathology procedure note for safe swallow recommendations as well as additional information regarding the oral-pharyngeal swallow function, plan of care, and recommended follow up. Dictated by: Adam Aiken M.D. The radiology attending physician has personally reviewed this study, and had reviewed and/or edited this written report and agrees with it. Electronically signed by: Félix Chahal M.D. I have independently reviewed and interpreted: - telemetry, which showed NSR - converted from AFib Assessment/Plan Assessment & Plan 51yo M with PMH DM1 on insulin pump c/b ESRD on PD and CAD s/p PCI, HFrecEF and Afib who was admitted on 06/04 from OSH for complex PCI after presenting with ACS, now s/p MARIELLA to LCx and OM bifurcation, which was c/b cardiogenic shock requiring impella and respiratory failure requiring intubation. CCU course c/b progressive ESRD requiring CRRT. Now resolved and transferred to the floor, improving. Atrial fibrillation ([facility]) ([facility]) Assessment & Plan Converted to NSR overnight. CHADsVASc of 4 not on anticoagulation prior to admission. - cardiology consulted - recommended ongoing rate control - holding off on a/c with high risk for bleeding while on DAPT - continue metop 50mg BID Acute on chronic HFrEF (heart failure with reduced ejection fraction) ([facility]) Assessment & Plan C/b cardiogenic shock requiring impella in the setting of cath and AHRF 2/2 pulmonary edema, now resolved. TTE demonstrating recovered EF 65% with grade I diastolic dysfunction. - metop as above - start low dose losartan 12.5mg daily today, ok per nephro - volume management per PD ESRD (end stage renal disease) ([facility]) ([facility]) Assessment & Plan - Renal consulted, s/p CRRT in the ICU now back on PD. - Trialysis catheter still in place --> removed today - Continue vitamins for renal bone mineral disease. Type 1 diabetes mellitus ([facility]) Assessment & Plan A1c well controlled on admission. He uses an insulin pump at home, since admission has been followed by endocrine service on basal bolus regimen with NPH for PD/hyperglycemic episodes. Hospital course has been c/b by both hypo and hyperglycemia intermittently. - endo consulted, appreciate recs continue lantus 33 qAM continue premeal lispro 8u Continue resistant SSI Continue NPH 35u before PD tonight - patient's family to bring his pump into hospital for use today * NSTEMI (non-ST elevated myocardial infarction) (CMS/HCC) (HCC) Assessment & Plan With recurrent chest pain. He has multiple risk factors for CAD, now s/p complex PCI to LCx and OM bifurcation with MARIELLA, though still with significant residual disease. - Continue DAPT with aspirin, Plavix and atorvastatin - continue home imdur and ranolazine per cards - tele Anemia Assessment & Plan Stable, likely 2/2 anemia from ESRD, no evidence of bleeding. Underwent CT c/a/p without internal hematoma. - Monitor and trend Hb. - empirically started on BID PPI while in ICU with concern for ?bleeding --> has been on for >2 weeks, ok to decrease to daily Acute hypoxemic respiratory failure (HCC) Assessment & Plan Secondary to ACS and flash pulmonary edema, since resolved and extubated on 06/19. Patient passed barium swallow on 06/21. Cardiogenic shock (HCC) Assessment & Plan Secondary to NSTEMI, s/p Impella since removed on 06/10. Resolved. Post-acute planning: - inpatient acute rehab per PT joseph, CM aware * Chula Melgar OT - 06/25/2022 9:25 AM CDT Occupational Therapy Occupational Therapy Initial Assessment NOTE:This is a summary note for the oliver assessments completed during the evaluation session. For full details, review chart review for all flowsheets documented on by this Occupational Therapist on this date. Vital signs documented in vital signs flowsheet. Assessment Assessment Problem List: Decreased cognition, Decreased endurance, Decreased balance, Decreased functional mobility, Decreased ADL independence, Decreased IADL independence Barriers to Discharge: Current Mobility Status, Decreased caregiver support, Cognition Plan Plan Plan: Plan of care initiated, If this is the last note, consider this the discharge summary OT Recommendation and Plan Recommendation/Plan OT Recommendation: Inpatient Rehab Facility Patient at high risk for: Falls, Readmission, Injury due to reduced functional status, Injury due to decreased ability to care for self, Injury due to impaired cognition, Injury due to balance deficits, Injury at home as patient has not returned to prior level of function, Cognitive decline due to decreased social participation Recommend Inpatient Rehab/Acute Rehab due to: Ability to actively participate in intensive therapy 3 hours/day, 5 days/week or 900 minutes per week, Highly motivated to participate in therapy, Not atbaseline due to impaired ability to complete ADLs, Impaired ability to complete functional mobility, Likely to return to the community at discharge with support system in place, Requires greater than25% physical assistance with most mobility tasks, Requires greater than 25% physical assistance with most ADL tasks, Requires multiple therapy disciplines to address functional deficits, Requires skilled therapy interventions to address neurological deficits OT Frequency: 3-5x/wk Comments: Patient reports dizziness following second sit to stand, impacting ability to complete ADLs in standing. Patient demonstrating decreased and delayed responses due to fatigue. Treatment/Interventions: ADL/IADL retraining, Balance Training, Bed mobility, Compensatory technique education, Endurance training, Functional activity, Functional transfer training, Functional mobility training, Transfer training, Therapeutic exercise, Therapeutic activity, Strengthening, Range ofmotion OT - Next Appointment: 06/27/22 OT - OK to Discharge: No OT Evaluation Complete: Yes General Information General Chart Reviewed: Yes Session Type: Evaluation OT Received On: 06/25/22 Safe Environment: Arm Band Checked, Call Light within Reach, Notified RN, Patient found in Supine, Overbed Table within Reach (in chair, needs in reach at end) Subjective: Agreeable to Therapy Family/Caregiver Present: No Precautions Precautions Precautions: Fall risk Home Living Home Living Type of Home: House Home Layout: One level Home Access: Stairs to enter without rails Entrance Stairs-Rails: None Entrance Stairs-Number of Steps: 1 Bathroom Shower/Tub: Tub/shower unit Bathroom Toilet: Standard Home Mobility Equipment: None Additional Comments: No AD at baseline for functional mobility Prior Function Prior Function Level of [place]: Independent with ADLs, Independent functional transfers, Independent with ambulation, Independent with homemaking with ambulation Lives With: Son (17 year old son) Receives Help From: Family (PT assist available) Driving: Yes ADL Assistance: Independent Instrumental ADL (IADL) Assistance: Independent Vocational/Occupation: On disability Fall within the last 6 months: No Activities of Daily Living Grooming Grooming: Where assessed: Chair (unable in standing due to dizziness) Grooming: Level of assistance: Moderate Assist (set up task, total balance) Grooming: Assistance with: Safety, Other (Comment) (balance) LE Dressing LE Dressing: Where assessed: Sitting, Chair LE Dressing: Level of assistance: Moderate Assist LE Dressing: Assistance with: Don/doff R sock, Don/doff L sock, Safety, Other (Comment) (balance) Toilet Transfers Toilet Transfer From: Bed Toilet Transfer Type: To Toilet Transfer to: (chair, sim) Toilet Transfer Technique: Ambulating (4 feet) Toilet Transfer: Equipment: No device Toilet Transfers: Minimal assistance Toilet Transfers Comments: Force production, balance, increased time required Pain Pain Assessment Pain Assessment: No/denies pain Cognition Cognition Arousal/Alertness: Lethargic Attention Span: Appears intact Memory: Appears intact Current communication: Appears Intact Orientation : Oriented X4 (person, place, time, situation) Following Commands: Follows all commands and directions without difficulty (increased time required) Compliance/Behavior: Easy to engage [place] Cognitive Assessment (MOCA) MOCA Version: Version 3 Visuospatial/Executive: 3 Namin Memory: Memory not scored Attention: 4 Language: 1 Abstraction: 2 Delayed Recall: 3 Orientation: 5 Education Level: Education Greater than 12 years MOCA Total Score: 21 Score Evaluation: 0-25 Impaired Recommendations for further assessment/interventions: Medication Management 6 Clicks Daily Activity - 6 Clicks Putting on and taking off regular lower body clothing: A lot Bathing: A lot Toileting: A lot Putting on and taking off upper body clothing: A Little Personal Grooming: A lot Eating Meals: A little Total Score (range 6-24): 14 Score Interpretation: 14 Balance Dynamic Sitting Balance Dynamic Sitting-Balance Support: Feet supported, No upper extremity supported Dynamic Sitting-Balance: Lateral lean, Forward lean, Reaching for objects, Reaching across midline Dynamic Sitting-Sitting Surface: Bed, Chair Dynamic Sitting-Level of Assistance: Distant supervision Dynamic Sitting-Comments: safety Dynamic Standing Balance Dynamic Standing-Balance Support: Bilateral upper extremity supported (ww) Dynamic Standing-Balance: Lateral lean, Forward lean, Reaching for objects Dynamic Standing-Standing Surface: Floor Dynamic Standing-Level of Assistance: Minimum assistance Dynamic Standing-Comments: to ensure safety and balance Transfers Transfers Transfer: Yes (gait belt utilized for all mobility) Transfer 1 Transfer From 1: Sit Transfer Type 1: To and from Transfer to 1: Stand Technique 1: Sit to stand, Stand to sit Transfer Device 1: No device Transfer Level of Assistance 1: Minimum Assist Trials/Comments 1: force production Transfers 2 Trials/Comments 2: functional mobility: Min assist w/ ww for 4 feet for balance and increased time required Bed Mobility Bed Mobility Bed Mobility: No RUE Assessment RUE Assessment RUE Assessment: Within Functional Limits LUE Assessment LUE Assessment LUE Assessment: Within Functional Limits Other Comments Other Comments Comments: Patient reports dizziness following second sit to stand, impacting ability to complete ADLs in standing. Patient demonstrating decreased and delayed responses due to fatigue. OT Goals Multi-Disciplinary Problems (from Occupational Therapy) Active Problems Problem: Dressings Lower Extremities Start Date: 06/25/22 Goal Start Date Expected End Date End Date STG - Patient to complete lower body dressing 06/25/22 07/08/22 -- Goal Details: With modified independence. Problem: Grooming Start Date: 06/25/22 Goal Start Date Expected End Date End Date STG - Patient will complete grooming 06/25/22 07/08/22 -- Goal Details: In standing with modified independence. Problem: Toileting Start Date: 06/25/22 Goal Start Date Expected End Date End Date STG - Patient will complete toileting tasks with 06/25/22 07/08/22 -- Goal Details: Modified independence. Problem: Transfers Start Date: 06/25/22 Goal Start Date Expected End Date End Date STG - Patient will perform toilet transfer 06/25/22 07/08/22 -- Goal Details: To standard toilet with modified independence. Problem: OT Misc Start Date: 06/25/22 Goal Start Date Expected End Date End Date OT LTG - Misc 1 06/25/22 07/08/22 -- Goal Details: Patient will demonstrate modified independence/independence with ADL task completion. For questions, please review the treatment team and contact the occupational therapist currently assigned to this patient. If an occupational therapist is not assigned to this patient, please call [phone]. * Carey East MD - 06/24/2022 4:30 PM CDT Daily Progress Note Division of Hospital Medicine Name: Adelia Garvin Jr. Today: June 24, 2022 : 1970 Age: 51 y.o. male Admit: 06/04/2022 Bed: [id number] Subjective Chief complaint: CAD s/p PCI, T1DM, ESRD on PD, cardiogenic shock Interval History: - was somnolent, hypoglycemic yesterday requiring PO glucose and IV dextrose - rebounded with hyperglycemia yesterday PM, likely exacerbated by PD dialysate - had CP yesterday afternoon with unchanged EKG and trops lower than previous --> cards consulted, no change in management, pain resolved This morning is more alert, reports chest pain has not recurred. Not having pain. Has a slight cough but otherwise no concerns. Objective Vitals: 24hr Min/Max: Temp Min: 36.7 ??C (98.1 ??F) Max: 37.9 ??C (100.2 ??F) Pulse Min: 73 Max: 102 BP Min: 97/56 Max: 119/59 Resp Min: 16 Max: 18 SpO2 Min: 93 % Max: 100 % Most Recent: Vitals: 06/24/22 1621 BP: (!) 111/42 Pulse: 92 Resp: 18 Temp: 37.9 ??C (100.2 ??F) SpO2: 93% Intake/Output Summary (Last 24 hours) at 06/24/2022 1630 Last data filed at 06/24/2022 0536 Gross per 24 hour Intake 31004 ml Output 32272 ml Net -347 ml Physical Exam Constitutional: NAD, well developed, well nourished Eyes: Conjunctiva normal, sclera anicteric ENT: NCAT, oropharynx normal, moist mucus membranes Lungs: Clear to auscultation in all lung charles, breathing unlabored Cardiovascular: Irreg irreg, normal S1 and S2, no murmurs GI: Soft, NT, mildly distended, NABS Skin: No new rashes, lesions or bruises on visible skin. TDC R chest without surrounding hematoma or erythema. Extremities: WWP, no edema or cyanosis Neurologic: AOx4, grossly normal strength and sensation Psych: Depressed affect, +psychomotor slowing in conversation I have reviewed the patient's vital signs. Lab/Diagnostic Review: Recent Results (from the past 24 hour(s)) POCT glucose Collection Time: 06/23/22 4:48 PM Result Value Ref Range Glucose, POC 152 70 - 199 mg/dL POCT glucose Collection Time: 06/23/22 5:57 PM Result Value Ref Range Glucose, POC 180 70 - 199 mg/dL POCT glucose Collection Time: 06/23/22 7:45 PM Result Value Ref Range Glucose, POC 284 (H) 70 - 199 mg/dL POCT glucose Collection Time: 06/23/22 8:49 PM Result Value Ref Range Glucose, POC 306 (H) 70 - 199 mg/dL POCT glucose Collection Time: 06/24/22 1:26 AM Result Value Ref Range Glucose, POC 428 (H) 70 - 199 mg/dL POCT glucose Collection Time: 06/24/22 1:44 AM Result Value Ref Range Glucose, POC 389 (H) 70 - 199 mg/dL Basic metabolic panel Collection Time: 06/24/22 4:10 AM Result Value Ref Range Sodium 134 (L) 135 - 145 mmol/L Potassium, pl 3.9 3.3 - 4.9 mmol/L Chloride 94 (L) 97 - 110 mmol/L CO2 25 22 - 32 mmol/L Anion gap 15 2 - 15 mmol/L BUN 46 (H) 8 - 25 mg/dL Creatinine 8.83 (H) 0.80 - 1.30 mg/dL Glucose 390 (H) 70 - 199 mg/dL Calcium 8.5 8.5 - 10.3 mg/dL CBC without differential Collection Time: 06/24/22 4:10 AM Result Value Ref Range WBC 4.3 3.8 - 9.9 K/cumm Hgb 7.9 (L) 13.0 - 17.5 g/dL Hct 24.0 (L) 38.9 - 50.3 % Plt 206 150 - 400 K/cumm MPV 10.3 9.1 - 12.3 fL RBC 2.61 (L) 4.30 - 5.80 M/cumm MCV 92.0 81.3 - 96.4 fL MCH 30.3 27.1 - 33.3 pg MCHC 32.9 32.3 - 35.7 g/dL RDW CV 18.5 (H) 11.1 - 14.9 % RDW SD 58.3 (H) 35.7 - 48.1 fL NRBC abs 0.00 0.00 - 0.01 K/cumm eGFR Collection Time: 06/24/22 4:10 AM Result Value Ref Range eGFR 7 (L) 90 - 130 mL/min/1.73 m2 POCT glucose Collection Time: 06/24/22 7:33 AM Result Value Ref Range Glucose, POC 415 (H) 70 - 199 mg/dL Glucose comment 1 Glu2: RN/MD Notified POCT glucose Collection Time: 06/24/22 9:54 AM Result Value Ref Range Glucose, POC 411 (H) 70 - 199 mg/dL POCT glucose Collection Time: 06/24/22 11:31 AM Result Value Ref Range Glucose, POC 346 (H) 70 - 199 mg/dL Glucose comment 1 Glu2: RN/MD Notified POCT glucose Collection Time: 06/24/22 12:53 PM Result Value Ref Range Glucose, POC 275 (H) 70 - 199 mg/dL Glucose comment 1 Glu2: RN/MD Notified I have reviewed the laboratory results. Imaging Results: FL Modified Barium Swallow W Video Narrative: EXAMINATION: MODIFIED BARIUM SWALLOW HISTORY: Concern for dysphagia. TECHNIQUE: This procedure was completed in conjunction with a Speech Language Pathologist. The patient was given barium of multiple different consistencies to swallow. Video fluoroscopy was employed during the exam. FINDINGS: Oral-pharyngeal swallow function is mildly impaired. Penetration: Yes There is penetration of thin liquids and nectar thick liquids. Penetration is sensed. The penetrated material is cleared. Aspiration: No Residue:Yes There is oral-pharyngeal residue of purees and solids. Residue is not sensed. The residual material is cleared. Other comments: None Impression: The swallowing mechanism is abnormal; see above comments. Please refer to the Speech Pathology procedure note for safe swallow recommendations as well as additional information regarding the oral-pharyngeal swallow function, plan of care, and recommended follow up. Dictated by: Adam Aiken M.D. The radiology attending physician has personally reviewed this study, and had reviewed and/or edited this written report and agrees with it. Electronically signed by: Félix Chahal M.D. I have independently reviewed and interpreted: - telemetry, which showed Atrial fibrillation Assessment/Plan Assessment & Plan 51yo M with PMH DM1 on insulin pump c/b ESRD on PD and CAD s/p PCI, HFrecEF and Afib who was admitted on 06/04 from OSH for complex PCI after presenting with ACS, now s/p MARIELLA to LCx and OM bifurcation, which was c/b cardiogenic shock requiring impella and respiratory failure requiring intubation. CCU course c/b progressive ESRD requiring CRRT. Now resolved and transferred to the floor, but with new chest pressure today. Atrial fibrillation ([facility]) ([facility]) Assessment & Plan Currently rated controlled with metoprolol, CHADsVASc of 4 not on anticoagulation prior to admission. Rates have been consistently 90-100, not optimal for HF and possibly contributing to demand/chestpain yesterday. - cardiology consulted - consolidated metop to 50mg BID today --> will uptitrate as tolerated by BP for improved HR control Acute on chronic HFrEF (heart failure with reduced ejection fraction) ([facility]) Assessment & Plan C/b cardiogenic shock requiring impella in the setting of cath and AHRF 2/2 pulmonary edema, now resolved. TTE demonstrating recovered EF 65% with grade I diastolic dysfunction. - metop as above - not on NICOLÁS/ARB due to ESRD, d/w nephro - volume management per PD ESRD (end stage renal disease) ([facility]) ([facility]) Assessment & Plan - Renal consulted, s/p CRRT in the ICU now back on PD. - Trialysis catheter still in place --> will remove tomorrow - Continue vitamins for renal bone mineral disease. Type 1 diabetes mellitus ([facility]) Assessment & Plan A1c well controlled on admission. He uses an insulin pump at home, since admission has been followed by endocrine service on basal bolus regimen with NPH for PD/hyperglycemic episodes. Hospital course has been c/b by both hypo and hyperglycemia intermittently. - endo consulted, appreciate recs continue lantus 33 qAM continue premeal lispro 8u Continue resistant SSI increase NPH 30 to 35u before PD tonight - patient's family to bring his pump into hospital for use * NSTEMI (non-ST elevated myocardial infarction) ([facility]) ([facility]) Assessment & Plan With recurrent chest pain. He has multiple risk factors for CAD, now s/p complex PCI to LCx and OM bifurcation with MARIELLA, though still with significant residual disease. - Continue DAPT with aspirin, Plavix and atorvastatin - resume home imdur and ranolazine per cards - tele Anemia Assessment & Plan Stable, likely 2/2 anemia from ESRD, no evidence of bleeding. Underwent CT c/a/p without internal hematoma. - Monitor and trend Hb. Acute hypoxemic respiratory failure (HCC) Assessment & Plan Secondary to ACS and flash pulmonary edema, since resolved and extubated on 06/19. Patient passed barium swallow on 06/21. Cardiogenic shock (HCC) Assessment & Plan Secondary to NSTEMI, s/p Impella since removed on 06/10. Resolved. Post-acute planning: - pending PT/OT evaluation * Roberto Carlos Newberry, PT - 06/24/2022 1:35 PM CDT Physical Therapy Physical Therapy Initial Assessment NOTE: This is a summary note for the oliver assessments completed during the evaluation session. For full details, review chart review for all flowsheets documented on by this physical therapist on thisdate. Vital signs documented in vital signs flowsheet. Assessment Assessment Prognosis: Good Problem List: Gait deviations, Decreased strength, Decreased range of motion, Decreased endurance, Impaired balance, Decreased mobility Problem List Comments: PT Diagnosis: Gen. Weakness, N/V, diarrhea, chest pain. Resp failure, [id number]: S/p complex PCI and Impella placement for cardiogenic shock. results in above listed activity deficits and impairments which prevent full participation in home and community mobility. Barriers to Discharge: Current Mobility Status, Decreased caregiver support Plan Plan Plan : Plan of care initiated, If this is the last note, consider this the discharge summary PT Recommendation and Plan Recommendation/Plan PT Recommendation/Plan: Inpatient Rehab Facility Patient at high risk for: Falls, Readmission, Injury due to balance deficits, Injury due to reducedfunctional status, Injury due to decreased ability to care for self, Injury at home as patient has not returned to prior level of function, Developing secondary complications: poor health management Recommend Inpatient Rehab/Acute Rehab due to: Ability to actively participate in intensive therapy 3 hours/day, 5 days/week or 900 minutes per week, Highly motivated to participate in therapy, Not atbaseline due to impaired ability to complete ADLs, Likely to return to the community at discharge with support system in place, Impaired ability to complete functional mobility, Requires greater than25% physical assistance with most mobility tasks, Requires multiple therapy disciplines to address functional deficits, Patient and caregiver require specialized skilled training due to new level of function/diagnosis PT Recommendation/Plan Comments: pt agreeable to PT POC PT Frequency: 3-5x/wk Treatment/Interventions: Balance Training, Bed mobility, Functional transfer training, Gait training, Stair training, Therapeutic activity, Strengthening, Therapeutic exercise, Transfer training PT - Next Appointment: 06/27/22 PT - OK to Discharge: No PT Evaluation Complete: Yes General Information General Chart Reviewed: Yes Session Type: Evaluation PT Received On: 06/24/22 Safe Environment: Arm Band Checked, Call Light within Reach, Notified RN, Patient found in Supine, Overbed Table within Reach Subjective: Agreeable to Therapy PT Missed Visit Reason: Sedated, Other (comment) (pt intubated, sedated, primaflex CVVHD.) Family/Caregiver Present: No Prior Function Prior Function Level of [place]: Independent functional transfers, Independent with ambulation Lives With: Son (17 year old son) Receives Help From: Family (PT assist only) Fall within the last 6 months: No Home Living Home Living Type of Home: House Home Layout: One level Home Access: Stairs to enter without rails Entrance Stairs-Rails: None Entrance Stairs-Number of Steps: 1 Home Mobility Equipment: None Additional Comments: no DME use at baseline Precautions Precautions Precautions: Fall risk Precaution Comments: PPE worn by PT:gloves, mask. Pain Cognition Cognition Arousal/Alertness: Lethargic Orientation : Oriented X4 (person, place, time, situation) Following Commands: Follows one step commands with repetition (and time) 6 Clicks Basic Mobility - 6 Click How much difficulty does the patient have: Turning over in bed: A little How much difficulty does the patient currently have: Sitting down and standing up from a chair witharms?: A lot How much difficulty does the patient have: Moving from lying on back to sitting on the side of the bed?: A little How much difficulty does the patient have: Moving to and from a bed to a chair including wheelchair?: A lot How much help does the patient currently need: Walk in hospital room?: A lot How much help from another person does the patient currently need: Climbing 3-5 steps with a railing?: A lot Total 6 Click Score (range 6-24): 14 Score Interpretation: 14 Bed Mobility Bed Mobility Bed Mobility: Yes Bed Mobility 1 Bed Mobility From 1: Supine Bed Mobility Type 1: To and from Bed Mobility to 1: Edge of bed Level of Assistance 1: Minimum Assist Bed Mobility Comments 1: assist for trunk elevation, LE management. Transfers Transfers Transfer: Yes Transfer 1 Transfer From 1: Sit Transfer Type 1: To and from Transfer to 1: Stand Technique 1: Stand to sit, Sit to stand Transfer Device 1: Wheeled walker Transfer Level of Assistance 1: Moderate Assist Trials/Comments 1: assist for force production, safety, balance. 3 trials performed. symptomatic with dizziness despite BP WNL. Balance Static Sitting Balance Static Sitting-Balance Support: Bilateral upper extremity supported, Feet supported Static Sitting-Sitting Surface: Bed Static Sitting-Level of Assistance: Close supervision Static Sitting-Comment/# of Minutes: safety Static Standing Balance Static Standing-Balance Support: Bilateral upper extremity supported (WW) Static Standing-Standing Surface: Floor Static Standing-Level of Assistance: Minimum assistance Static Standing-Comment/# of Minutes: safety/balance Dynamic Standing Balance Dynamic Standing-Balance Support: Bilateral upper extremity supported (WW) Dynamic Standing-Standing Surface: Floor Dynamic Standing-Level of Assistance: Minimum assistance Dynamic Standing-Comments: standing marching Ambulation Ambulation Ambulation: No (safety concerns with dizziness/lethargic) Stairs Curbs RLE Assessment RLE Assessment RLE Assessment: Within Functional Limits LLE Assessment LLE Assessment LLE Assessment: Within Functional Limits Equipment Used Equipment Use Equipment Use Comments: gait belt utilized Other Comments Other Comments Other PT Comments: pt left supine in bed with all lines intact, RN aware. PT Goals Multi-Disciplinary Problems (from Physical Therapy) Active Problems Problem: Mobility Start Date: 06/24/22 Goal Start Date Expected End Date End Date STG - Patient will ambulate 06/24/22 07/08/22 -- Goal Details: 100 ft, LRAD, SBA Goal Start Date Expected End Date End Date STG - Patient will ambulate up and down a curb/step 06/24/22 07/08/22 -- Goal Details: SBA Problem: Transfers Start Date: 06/24/22 Goal Start Date Expected End Date End Date STG - Transfer from bed to chair 06/24/22 07/08/22 -- Goal Details: SBA Goal Start Date Expected End Date End Date STG - Patient to transfer to and from sit to supine 06/24/22 07/08/22 -- Goal Details: Mod I Goal Start Date Expected End Date End Date STG - Patient will transfer sit to and from stand 06/24/22 07/08/22 -- Goal Details: SBA For questions, please review the treatment team and contact the PT or SHALLOT PACKER currently assigned to this patient. If a physical therapy clinician is not assigned to this patient, please call [phone]. * Carey East MD - 06/23/2022 4:37 PM CDT Daily Progress Note Division of [facility] Medicine Name: Adelia Garvin Jr. Today: June 23, 2022 : 1970 Age: 51 y.o. male Admit: 06/04/2022 Bed: [id number] Subjective Chief complaint: CAD s/p PCI, T1DM, ESRD on PD, cardiogenic shock Interval History: transferred from CCU to medicine floors overnight. Today, somewhat somnolent thismorning which he attributes to moving from the ICU and PD overnight. This AM, no chest pain but later in the day, reported new nausea and substernal chest pressure without radiation. Objective Vitals: 24hr Min/Max: Temp Min: 36.7 ??C (98.1 ??F) Max: 37 ??C (98.6 ??F) Pulse Min: 72 Max: 114 BP Min: 86/64 Max: 126/50 Resp Min: 18 Max: 24 SpO2 Min: 95 % Max: 100 % Most Recent: Vitals: 06/23/22 1415 BP: 109/66 Pulse: 98 Resp: Temp: SpO2: Intake/Output Summary (Last 24 hours) at 06/23/2022 1655 Last data filed at 06/23/2022 0625 Gross per 24 hour Intake 26137 ml Output 57196 ml Net -2575 ml Physical Exam Constitutional: NAD, well developed, well nourished Eyes: Conjunctiva normal, sclera anicteric ENT: NCAT, oropharynx normal, moist mucus membranes Lungs: Clear to auscultation in all lung charles, breathing unlabored Cardiovascular: RRR, normal S1 and S2, no murmurs GI: Soft, NT, mildly distended, NABS Skin: No new rashes, lesions or bruises on visible skin. TDC R chest without surrounding hematoma or erythema. Extremities: WWP, no edema or cyanosis Neurologic: AOx4, grossly normal strength and sensation, somewhat somnolent and slow to respond to questions I have reviewed the patient's vital signs. Lab/Diagnostic Review: Recent Results (from the past 24 hour(s)) POCT glucose Collection Time: 06/22/22 5:37 PM Result Value Ref Range Glucose, POC 88 70 - 199 mg/dL POCT glucose Collection Time: 06/22/22 9:14 PM Result Value Ref Range Glucose, POC 176 70 - 199 mg/dL Phosphorus Collection Time: 06/22/22 9:28 PM Result Value Ref Range Phosphorus, pl 5.8 (H) 2.3 - 4.5 mg/dL POCT glucose Collection Time: 06/23/22 1:38 AM Result Value Ref Range Glucose, POC 244 (H) 70 - 199 mg/dL CBC without differential Collection Time: 06/23/22 4:21 AM Result Value Ref Range WBC 4.4 3.8 - 9.9 K/cumm Hgb 8.1 (L) 13.0 - 17.5 g/dL Hct 25.8 (L) 38.9 - 50.3 % Plt 206 150 - 400 K/cumm MPV 10.4 9.1 - 12.3 fL RBC 2.76 (L) 4.30 - 5.80 M/cumm MCV 93.5 81.3 - 96.4 fL MCH 29.3 27.1 - 33.3 pg MCHC 31.4 (L) 32.3 - 35.7 g/dL RDW CV 18.8 (H) 11.1 - 14.9 % RDW SD 58.8 (H) 35.7 - 48.1 fL NRBC abs 0.00 0.00 - 0.01 K/cumm Magnesium Collection Time: 06/23/22 4:21 AM Result Value Ref Range Magnesium 2.9 (H) 1.4 - 2.5 mg/dL POCT glucose Collection Time: 06/23/22 7:28 AM Result Value Ref Range Glucose, POC 320 (H) 70 - 199 mg/dL POCT glucose Collection Time: 06/23/22 11:48 AM Result Value Ref Range Glucose, POC 163 70 - 199 mg/dL POCT glucose Collection Time: 06/23/22 1:20 PM Result Value Ref Range Glucose, POC 88 70 - 199 mg/dL ECG 12 lead Collection Time: 06/23/22 1:30 PM Result Value Ref Range Ventricular Rate EKG/Min 100 BPM Atrial Rate 100 BPM [place]-Interval (MSEC) 182 ms QRS-Interval (MSEC) 106 ms QT-Interval (MSEC) 380 ms QTc 490 ms R [place] -47 degrees T [place] 105 degrees Diagnosis Sinus rhythm with Premature supraventricular complexes Left axis deviation Minimal voltage criteria for LVH, may be normal variant Poor precordial R wave progression consistent with faulty lead placement ,copd, anterior infarction, etc. Anterior infarct (cited on or before 19-JUN-2022) ST & T wave abnormality, consider lateral ischemia Abnormal ECG When compared with ECG of 19-JUN-2022 13:03, Sinus rhythm has replaced Atrial fibrillation ST elevation now present in Inferior leads ST no longer depressed in Lateral leads Confirmed by HUDSON SAL M.D ([id number]) on 06/23/2022 4:28:23 PM POCT glucose Collection Time: 06/23/22 1:42 PM Result Value Ref Range Glucose, POC 79 70 - 199 mg/dL Basic metabolic panel Collection Time: 06/23/22 2:01 PM Result Value Ref Range Sodium 136 135 - 145 mmol/L Potassium, pl 3.4 3.3 - 4.9 mmol/L Chloride 96 (L) 97 - 110 mmol/L CO2 25 22 - 32 mmol/L Anion gap 15 2 - 15 mmol/L BUN 45 (H) 8 - 25 mg/dL Creatinine 8.21 (H) 0.80 - 1.30 mg/dL Glucose 60 (L) 70 - 199 mg/dL Calcium 8.3 (L) 8.5 - 10.3 mg/dL CBC without differential Collection Time: 06/23/22 2:01 PM Result Value Ref Range WBC 5.9 3.8 - 9.9 K/cumm Hgb 4.6 (Critical) 13.0 - 17.5 g/dL Hct 14.2 (L) 38.9 - 50.3 % Plt 253 150 - 400 K/cumm MPV 10.1 9.1 - 12.3 fL RBC 1.51 (L) 4.30 - 5.80 M/cumm MCV 94.0 81.3 - 96.4 fL MCH 30.5 27.1 - 33.3 pg MCHC 32.4 32.3 - 35.7 g/dL RDW CV 18.4 (H) 11.1 - 14.9 % RDW SD 58.0 (H) 35.7 - 48.1 fL NRBC abs 0.00 0.00 - 0.01 K/cumm Magnesium Collection Time: 06/23/22 2:01 PM Result Value Ref Range Magnesium 2.8 (H) 1.4 - 2.5 mg/dL Phosphorus Collection Time: 06/23/22 2:01 PM Result Value Ref Range Phosphorus, pl 5.2 (H) 2.3 - 4.5 mg/dL Troponin I high-sensitivity series (baseline, 2hr, 4hr, 6hr) Collection Time: 06/23/22 2:01 PM Result Value Ref Range Trop I hs 3,653 (Critical) <=35 ng/L eGFR Collection Time: 06/23/22 2:01 PM Result Value Ref Range eGFR 7 (L) 90 - 130 mL/min/1.73 m2 Critical result callback Cardio chemistry Collection Time: 06/23/22 2:01 PM Result Value Ref Range Date Notified [id number] Time Notified 1454 Test name Trop I hs base Called/Read Back Fartun Vaughanentials RN Called By karen POCT glucose Collection Time: 06/23/22 2:25 PM Result Value Ref Range Glucose, POC 69 (L) 70 - 199 mg/dL Troponin I high-sensitivity 2-hour Collection Time: 06/23/22 2:34 PM Result Value Ref Range Trop I hs 3,636 (Critical) <=35 ng/L Trop I hs delta See Comment ng/L Trop I hs pct delta See Comment % Trop I hs interp See Comment CBC with auto differential Collection Time: 06/23/22 2:34 PM Result Value Ref Range WBC 5.4 3.8 - 9.9 K/cumm Hgb 8.2 (L) 13.0 - 17.5 g/dL Hct 25.2 (L) 38.9 - 50.3 % Plt 215 150 - 400 K/cumm MPV 10.2 9.1 - 12.3 fL RBC 2.71 (L) 4.30 - 5.80 M/cumm MCV 93.0 81.3 - 96.4 fL MCH 30.3 27.1 - 33.3 pg MCHC 32.5 32.3 - 35.7 g/dL RDW CV 18.7 (H) 11.1 - 14.9 % RDW SD 57.2 (H) 35.7 - 48.1 fL NRBC abs 0.00 0.00 - 0.01 K/cumm Differential, auto Collection Time: 06/23/22 2:34 PM Result Value Ref Range Neutrophil abs 2.7 1.7 - 6.5 K/cumm Imm gran abs 0.0 0.0 - 0.1 K/cumm Lymphocyte abs 1.3 0.8 - 3.3 K/cumm Monocyte abs 0.8 0.2 - 0.8 K/cumm Eosinophil abs 0.5 0.0 - 0.5 K/cumm Basophil abs 0.0 0.0 - 0.1 K/cumm Neutrophil pct 50.3 % Imm gran pct 0.6 % Lymphocyte pct 23.7 % Monocyte pct 15.5 % Eosinophil pct 9.2 % Basophil pct 0.7 % POCT glucose Collection Time: 06/23/22 3:01 PM Result Value Ref Range Glucose, POC 66 (L) 70 - 199 mg/dL POCT glucose Collection Time: 06/23/22 3:43 PM Result Value Ref Range Glucose, POC 174 70 - 199 mg/dL POCT glucose Collection Time: 06/23/22 4:48 PM Result Value Ref Range Glucose, POC 152 70 - 199 mg/dL I have reviewed the laboratory results. Imaging Results: FL Modified Barium Swallow W Video Narrative: EXAMINATION: MODIFIED BARIUM SWALLOW HISTORY: Concern for dysphagia. TECHNIQUE: This procedure was completed in conjunction with a Speech Language Pathologist. The patient was given barium of multiple different consistencies to swallow. Video fluoroscopy was employed during the exam. FINDINGS: Oral-pharyngeal swallow function is mildly impaired. Penetration: Yes There is penetration of thin liquids and nectar thick liquids. Penetration is sensed. The penetrated material is cleared. Aspiration: No Residue:Yes There is oral-pharyngeal residue of purees and solids. Residue is not sensed. The residual material is cleared. Other comments: None Impression: The swallowing mechanism is abnormal; see above comments. Please refer to the Speech Pathology procedure note for safe swallow recommendations as well as additional information regarding the oral-pharyngeal swallow function, plan of care, and recommended follow up. Dictated by: Adam Aiken M.D. The radiology attending physician has personally reviewed this study, and had reviewed and/or edited this written report and agrees with it. Electronically signed by: Félix Chahal M.D. I have independently reviewed and interpreted: - telemetry, which showed Atrial fibrillation - EKG: findings include: EKG findings: unchanged from previous tracings, normal sinus rhythm, nonspecific ST and T waves changes Assessment/Plan Assessment & Plan 51yo M with PMH DM1 on insulin pump c/b ESRD on PD and CAD s/p PCI, HFrecEF and Afib who was admitted on 06/04 from OSH for complex PCI after presenting with ACS, now s/p MARIELLA to LCx and OM bifurcation, which was c/b cardiogenic shock requiring impella and respiratory failure requiring intubation. CCU course c/b progressive ESRD requiring CRRT. Now resolved and transferred to the floor, but with new chest pressure today. Cardiogenic shock (HCC) Assessment & Plan Secondary to NSTEMI, s/p Impella since removed on 06/10. Resolved. Atrial fibrillation (CMS/HCC) ([facility]) Assessment & Plan Currently rated controlled with metoprolol, CHADsVASc of 4 not on anticoagulation prior to admission. - cardiology consulted - metop as elsewhere Acute on chronic HFrEF (heart failure with reduced ejection fraction) ([facility]) Assessment & Plan C/b cardiogenic shock requiring impella in the setting of cath and AHRF 2/2 pulmonary edema, now resolved. TTE demonstrating recovered EF 65% with grade I diastolic dysfunction. - consolidate metoprolol today: 25 q6h --> 50mg BID - not on NICOLÁS/ARB due to ESRD, will d/w nephro - volume management per PD ESRD (end stage renal disease) (CMS/HCC) ([facility]) Assessment & Plan - Renal consulted, s/p CRRT in the ICU now back on PD. - Trialysis catheter still in place --> will remove tomorrow - Continue vitamins for renal bone mineral disease. Anemia Assessment & Plan Stable, likely 2/2 anemia from ESRD, no evidence of bleeding. Underwent CT c/a/p without internal hematoma. - Monitor and trend Hb. Acute hypoxemic respiratory failure (HCC) Assessment & Plan Secondary to ACS and flash pulmonary edema, since resolved and extubated on 06/19. Patient passed barium swallow on 06/21. Type 1 diabetes mellitus (HCC) Assessment & Plan A1c well controlled on admission. He uses an insulin pump at home, since admission has been followed by endocrine service on basal bolus regimen with NPH for PD/hyperglycemic episodes. Today, developed hypoglycemia in the setting of poor PO intake and increased doses of lantus/lispro. - endo consulted, appreciate recs - in light of hypoglycemia today, planning to: reduce lantus 33 --> 28u tomorrow AM Reduce premeal lispro 10 --> 6u Continue resistant SSI Continue NPH 30u before PD tonight - patient's family to bring his pump into hospital for use * NSTEMI (non-ST elevated myocardial infarction) ([facility]) ([facility]) Assessment & Plan With recurrent chest pain. He has multiple risk factors for CAD, now s/p complex PCI to LCx and OM bifurcation with MARIELLA. - Continue DAPT with aspirin, Plavix and atorvastatin - trend trops today - cardiology re-consulted - tele * Ronny Vasquez - 06/23/2022 12:02 PM CDT Nutrition Assessment Reason for Assessment: Follow Up Encounter Date: 06/23/22 12:02 PM Patient is a 51 y.o. male with chief complaint of generalized weakness, n/v, diarrhea, and chest pain. LOS is 19 days. HPI: 51 y.o. male with a history of CHF (EF 50% 2016), Afib (not on AC), HTN, CAD s/p stent 04/06 and 3 stent 12/07, T1DM (insulin pump at home), ESRD on PD, HLD, GERD, hyperparathyroidism, DDD, OA, gout, BEN on CPAP initially presented to [facility] for generalized weakness, n/v, diarrhea, and chest pain now being transferred for LHC/PCI 06/06. Objective Past Medical History: Diagnosis Date CAD (coronary artery disease) Chest pain Diabetes mellitus (HCC) Diabetes mellitus type I (HCC) Dialysis patient ([facility]) ([facility]) ESRD on dialysis ([facility]) ([facility]) GERD (gastroesophageal reflux disease) Hyperlipidemia Hypertension Sleep [...] activity: Defer Alcohol Use: Not At Risk Frequency of Alcohol Consumption: Monthly or less Average Number of Drinks: 3 or 4 Frequency of Binge Drinking: Never Family History Problem Relation Age of Onset Heart attack Father Anthropometrics: Wt Readings from Last 3 Encounters: 06/23/22 119.9 kg (264 lb 5.3 oz) 01/21/21 132.9 kg (293 lb) 04/19/18 118.8 kg (262 lb) Anthropometrics Weight: 119.9 kg (264 lb 5.3 oz) Admission Weight : 142 kg Weight Change: -0.60 kg (-1.32 lbs) IBW/kg (Calculated) : 75.3 kg Height: 177.8 cm (5' 10 ) Weight in (lb) to have BMI = 25: 173.9 BMI (Calculated): 37.9 Nutrition Needs Calculations: Calculated Energy Needs Using Equations Weight: 119.9 kg (264 lb 5.3 oz) Height: 177.8 cm (5' 10 ) Minute Ventilation (L/min): 6.8 L/min Estimated Protein Needs Type of Weight Used for Estimated Protein : [place] Protein Needs Based on g/k.5 Total Protein Estimated Needs (gm): 112.95 Kcal/kg Type of Weight Used for Estimated Kcals: Admission Kcal/k Total Kcal/kg Estimated Needs : 1703.71 Vital Signs: BP: 126/50 Temp: 36.7 ??C (98.1 ??F) Pulse: 75 Resp: 18 SpO2: 97 % Medications: Scheduled Meds: aspirin, 81 mg, oral, Daily atorvastatin, 80 mg, oral, Daily calcitRIOL, 0.25 mcg, oral, Daily [Held by Provider] calcium acetate(phosphat bind), 667 mg, oral, QID clopidogreL, 75 mg, oral, Daily ezetimibe, 10 mg, oral, Daily heparin, 5,000 Units, subcutaneous, Q8H ASHLEY insulin glargine, 33 Units, subcutaneous, QAM insulin lispro, 0-10 Units, subcutaneous, TID with meals insulin lispro, 0-5 Units, subcutaneous, Nightly insulin lispro, 0-5 Units, subcutaneous, Daily insulin lispro, 10 Units, subcutaneous, TID with meals insulin NPH, 30 Units, subcutaneous, Nightly metoprolol tartrate, 25 mg, oral, Q6H pantoprazole, 40 mg, intravenous, BID polyvinyl alcohol-povidone, 1 drop, each eye, QID Continuous Infusions: PRN Meds: acetaminophen albuterol HFA dextrose 5% water dextrose 5% water fluticasone propionate lidocaine ondansetron ODT OR ondansetron ramelteon Lab Review: Sodium Date Value Ref Range Status 06/22/2022 138 135 - 145 mmol/L Final Potassium, pl Date Value Ref Range Status 06/22/2022 3.7 3.3 - 4.9 mmol/L Final BUN Date Value Ref Range Status 06/22/2022 42 (H) 8 - 25 mg/dL Final Creatinine Date Value Ref Range Status 06/22/2022 7.25 (H) 0.80 - 1.30 mg/dL Final Phosphorus, pl Date Value Ref Range Status 06/22/2022 5.8 (H) 2.3 - 4.5 mg/dL Final Albumin Date Value Ref Range Status 06/22/2022 2.9 (L) 3.5 - 5.0 g/dL Final Magnesium Date Value Ref Range Status 06/23/2022 2.9 (H) 1.4 - 2.5 mg/dL Final Calcium Date Value Ref Range Status 06/22/2022 8.6 8.5 - 10.3 mg/dL Final ALT Date Value Ref Range Status 06/22/2022 31 7 - 55 Units/L Final AST Date Value Ref Range Status 06/22/2022 41 10 - 50 Units/L Final Alk phos Date Value Ref Range Status 06/22/2022 112 40 - 130 Units/L Final Lipase Date Value Ref Range Status 06/21/2022 227 (H) 10 - 99 Units/L Final Lab Results Component Value Date HGBA1C 7.8 (H) 06/04/2022 HDL 34 (L) 06/04/2022 LDLCALC 82 06/04/2022 CHOL 149 06/04/2022 TRIG 183 (H) 06/21/2022 Nursing Assessment: Intake/Output Summary (Last 24 hours) at 06/23/2022 1202 Last data filed at 06/23/2022 0625 Gross per 24 hour Intake 55213 ml Output 09082 ml Net -2575 ml Gastrointestinal Gastrointestinal (WDL): Exceptions to WDL Abdomen Inspection: Soft, Rounded Bowel Sounds (All Quadrants): Active Palpation: Soft, Nontender Last BM Date: 06/20/22 Passing Flatus: Yes GI Symptoms: None Gastrointestinal Additional Assessments: No Last BM Date: 06/20/22 Rex Scale Score: 15 Skin Integrity: Excoriation Edema: Trace Dietary Orders (From admission, onward) Start Ordered 06/23/22 1700 Oral Nutrition Supplements Select Supplement: Glucerna Shake - Yinka; Quantity (# of cans): 1 can All Meals Question Answer Comment Select Supplement: Glucerna Shake - Yinka Quantity (# of cans): 1 can 06/23/22 1201 06/22/22 192 Adult Diet Restricted; 2 GM Sodium; Consistent Carbohydrate Diet effective now Comments: Heart Healthy Diet Question Answer Comment ([facility]) Diet type Restricted Fat / Sodium Restriction: 2 GM Sodium Diabetic: Consistent Carbohydrate 06/22/22 1924 06/21/22 2100 Bedtime snack At bedtime Comments: If bedtime BG is less than 100mg/dl, give patient a 15 gram carbohydrate snack. 06/21/22 1522 Impression: Pt seen by RD for nutrition follow up. Pt reports appetite has improved, and he is eating 25-75% atmeals. Pt reports that his appetite varies depending on the food served to him. Pt reports that if food is too dry, or looks unappealing then he will choose not to eat. Pt denies n/v/d/c. NUTRITION DIAGNOSIS Nutrition Diagnosis 1: Inadequate oral intake Related to: Loss of appetite Evidenced by: Patient interview INTERVENTION Encouraged adequate intake at meals as tolerated. Discussed drinking a nutritional supplement when intake at meals is <50%. Add Glucerna TID chocolate Continue current diet. RD Following. GOALS / MONITORING: Goals: Adequate nutrition to meet estimated needs by next assessment, Tolerance of medical food supplement by next assessment Interventions: Medical food supplement Monitoring and Evaluation: Supplement tolerance Ronny Vasquez MS, RDN LD Nut Sifter RD number [phone] * Luiz LewisDO valencia - 06/22/2022 8:22 PM CDT Transfer Note Division of Hospital Medicine I have seen and examined the patient on 06/22/2022. Subjective: Hospital course: Adelia Garvin Jr. is 51 y.o. male with history of DMI on insulin pump c/b ESRD on PD and CAD s/pPCI, HFrEF and Afib not on AC admitted on 06/04/2022 from OSH for complex PCI. Patient initially presented with chest pain and nausea, workup showed Trop peak of 1.09, LHC on 06/03 at OSH showed 90%+ostial LCx and OM lesion and accepted by cardiology for complex PCI. Patient underwent PCI on 06/07with successful placement of MARIELLA to LCx and OM bifurcation, procedure was complicated by cardiogenic shock requiring Impella and respiratory failure requiring intubation. Temp Trialysis placed and patient was placed on CRRT, patient received supportive care and weaned on Impella on 06/10 and extubated on 06/19 and transferred to the floor on 06/22. On interview patient reports resolution of chest pain, reports no complaints. Objective: Vitals: 24hr Min/Max: Temp Min: 36.7 ??C (98.1 ??F) Max: 37 ??C (98.6 ??F) Pulse Min: 79 Max: 114 BP Min: 99/66 Max: 145/57 Resp Min: 18 Max: 26 SpO2 Min: 91 % Max: 100 % Most Recent Vitals: Vitals: 06/22/221927 BP: 99/66 Pulse: 79 Resp: 20 Temp: 36.7 ??C (98.1 ??F) SpO2: 96% Intake/Output Summary (Last 24 hours) at 06/22/20221950 Last data filed at 06/22/20221944 Gross per 24 hour Intake 78938 ml Output 40625 ml Net -2209 ml Constitutional - chronically ill appearing, afebrile, obese HEENT - NC/AT, EOMI, clear conjunctivae, supple, no LAD, no JVD Respiratory - CTAB no crackles or wheezes bilaterally CV - RRR no murmurs, radial and DP pulses 2/4, no peripheral edema Gastrointestinal - Soft, NT/ND, +BS Musculoskeletal - Moves all four extremities Skin - No rashes, lesions or jaundice Neurologic - A&O x 3, no focal neurological deficits Psych - Appropriate mood and affect Lab/Diagnostic Review: Recent Results (from the past 36 hour(s)) POCT glucose Collection Time: 06/21/22 8:34 AM Result Value Ref Range Glucose, POC 199 70 - 199 mg/dL Comprehensive metabolic panel Collection Time: 06/21/22 8:38 AM Result Value Ref Range Sodium 139 135 - 145 mmol/L Potassium, pl 4.0 3.3 - 4.9 mmol/L Chloride 101 97 - 110 mmol/L CO2 27 22 - 32 mmol/L Anion gap 11 2 - 15 mmol/L BUN 36 (H) 8 - 25 mg/dL Creatinine 5.26 (H) 0.80 - 1.30 mg/dL Glucose 199 70 - 199 mg/dL Calcium 8.4 (L) 8.5 - 10.3 mg/dL Bilirubin, total 0.4 0.1 - 1.2 mg/dL Protein, pl 5.6 (L) 6.5 - 8.5 g/dL Albumin 2.7 (L) 3.5 - 5.0 g/dL Alk phos 115 40 - 130 Units/L ALT 28 7 - 55 Units/L AST 52 (H) 10 - 50 Units/L Magnesium Collection Time: 06/21/22 8:38 AM Result Value Ref Range Magnesium 2.8 (H) 1.4 - 2.5 mg/dL CBC with auto differential Collection Time: 06/21/22 8:38 AM Result Value Ref Range WBC 5.4 3.8 - 9.9 K/cumm Hgb 9.0 (L) 13.0 - 17.5 g/dL Hct 27.8 (L) 38.9 - 50.3 % Plt 171 150 - 400 K/cumm MPV 9.8 9.1 - 12.3 fL RBC 3.01 (L) 4.30 - 5.80 M/cumm MCV 92.4 81.3 - 96.4 fL MCH 29.9 27.1 - 33.3 pg MCHC 32.4 32.3 - 35.7 g/dL RDW CV 19.9 (H) 11.1 - 14.9 % RDW SD 63.2 (H) 35.7 - 48.1 fL NRBC abs 0.02 (H) 0.00 - 0.01 K/cumm Differential, auto Collection Time: 06/21/22 8:38 AM Result Value Ref Range Neutrophil abs 3.3 1.7 - 6.5 K/cumm Imm gran abs 0.0 0.0 - 0.1 K/cumm Lymphocyte abs 1.2 0.8 - 3.3 K/cumm Monocyte abs 0.7 0.2 - 0.8 K/cumm Eosinophil abs 0.1 0.0 - 0.5 K/cumm Basophil abs 0.1 0.0 - 0.1 K/cumm Neutrophil pct 60.8 % Imm gran pct 0.7 % Lymphocyte pct 22.0 % Monocyte pct 13.7 % Eosinophil pct 1.9 % Basophil pct 0.9 % eGFR Collection Time: 06/21/22 8:38 AM Result Value Ref Range eGFR 12 (L) 90 - 130 mL/min/1.73 m2 POCT glucose Collection Time: 06/21/22 12:00 PM Result Value Ref Range Glucose, POC 157 70 - 199 mg/dL POCT glucose Collection Time: 06/21/22 4:08 PM Result Value Ref Range Glucose, POC 138 70 - 199 mg/dL CBC with auto differential Collection Time: 06/21/22 5:23 PM Result Value Ref Range WBC 6.5 3.8 - 9.9 K/cumm Hgb 7.5 (L) 13.0 - 17.5 g/dL Hct 23.0 (L) 38.9 - 50.3 % Plt 177 150 - 400 K/cumm MPV 9.8 9.1 - 12.3 fL RBC 2.44 (L) 4.30 - 5.80 M/cumm MCV 94.3 81.3 - 96.4 fL MCH 30.7 27.1 - 33.3 pg MCHC 32.6 32.3 - 35.7 g/dL RDW CV 19.0 (H) 11.1 - 14.9 % RDW SD 60.9 (H) 35.7 - 48.1 fL NRBC abs 0.00 0.00 - 0.01 K/cumm Differential, auto Collection Time: 06/21/22 5:23 PM Result Value Ref Range Neutrophil abs 4.1 1.7 - 6.5 K/cumm Imm gran abs 0.1 0.0 - 0.1 K/cumm Lymphocyte abs 1.2 0.8 - 3.3 K/cumm Monocyte abs 0.9 (H) 0.2 - 0.8 K/cumm Eosinophil abs 0.3 0.0 - 0.5 K/cumm Basophil abs 0.0 0.0 - 0.1 K/cumm Neutrophil pct 62.4 % Imm gran pct 0.8 % Lymphocyte pct 18.5 % Monocyte pct 13.7 % Eosinophil pct 4.0 % Basophil pct 0.6 % Comprehensive metabolic panel Collection Time: 06/21/22 9:55 PM Result Value Ref Range Sodium 136 135 - 145 mmol/L Potassium, pl 4.0 3.3 - 4.9 mmol/L Chloride 98 97 - 110 mmol/L CO2 24 22 - 32 mmol/L Anion gap 14 2 - 15 mmol/L BUN 41 (H) 8 - 25 mg/dL Creatinine 6.03 (H) 0.80 - 1.30 mg/dL Glucose 276 (H) 70 - 199 mg/dL Calcium 8.4 (L) 8.5 - 10.3 mg/dL Bilirubin, total 0.5 0.1 - 1.2 mg/dL Protein, pl 5.9 (L) 6.5 - 8.5 g/dL Albumin 2.7 (L) 3.5 - 5.0 g/dL Alk phos 111 40 - 130 Units/L ALT 32 7 - 55 Units/L AST 48 10 - 50 Units/L Magnesium Collection Time: 06/21/22 9:55 PM Result Value Ref Range Magnesium 2.8 (H) 1.4 - 2.5 mg/dL Lipase Collection Time: 06/21/22 9:55 PM Result Value Ref Range Lipase 227 (H) 10 - 99 Units/L Phosphorus Collection Time: 06/21/22 9:55 PM Result Value Ref Range Phosphorus, pl 4.8 (H) 2.3 - 4.5 mg/dL Triglycerides Collection Time: 06/21/22 9:55 PM Result Value Ref Range Triglycerides 183 (H) <=149 mg/dL Lactate Collection Time: 06/21/22 9:55 PM Result Value Ref Range Lactate 0.8 0.7 - 2.0 mmol/L CBC with auto differential Collection Time: 06/21/22 9:55 PM Result Value Ref Range WBC 5.9 3.8 - 9.9 K/cumm Hgb 7.5 (L) 13.0 - 17.5 g/dL Hct 23.6 (L) 38.9 - 50.3 % Plt 174 150 - 400 K/cumm MPV 9.7 9.1 - 12.3 fL RBC 2.51 (L) 4.30 - 5.80 M/cumm MCV 94.0 81.3 - 96.4 fL MCH 29.9 27.1 - 33.3 pg MCHC 31.8 (L) 32.3 - 35.7 g/dL RDW CV 18.9 (H) 11.1 - 14.9 % RDW SD 60.0 (H) 35.7 - 48.1 fL NRBC abs 0.02 (H) 0.00 - 0.01 K/cumm POCT glucose Collection Time: 06/21/22 9:55 PM Result Value Ref Range Glucose, POC 272 (H) 70 - 199 mg/dL Differential, auto Collection Time: 06/21/22 9:55 PM Result Value Ref Range Neutrophil abs 3.7 1.7 - 6.5 K/cumm Imm gran abs 0.0 0.0 - 0.1 K/cumm Lymphocyte abs 1.0 0.8 - 3.3 K/cumm Monocyte abs 0.8 0.2 - 0.8 K/cumm Eosinophil abs 0.3 0.0 - 0.5 K/cumm Basophil abs 0.0 0.0 - 0.1 K/cumm Neutrophil pct 63.3 % Imm gran pct 0.5 % Lymphocyte pct 16.3 % Monocyte pct 14.3 % Eosinophil pct 5.1 % Basophil pct 0.5 % eGFR Collection Time: 06/21/22 9:55 PM Result Value Ref Range eGFR 10 (L) 90 - 130 mL/min/1.73 m2 POCT glucose Collection Time: 06/22/22 5:54 AM Result Value Ref Range Glucose, POC 370 (H) 70 - 199 mg/dL POCT glucose Collection Time: 06/22/22 7:38 AM Result Value Ref Range Glucose, POC 318 (H) 70 - 199 mg/dL POCT glucose Collection Time: 06/22/22 7:40 AM Result Value Ref Range Glucose, POC 364 (H) 70 - 199 mg/dL POCT glucose Collection Time: 06/22/22 9:07 AM Result Value Ref Range Glucose, POC 313 (H) 70 - 199 mg/dL POCT glucose Collection Time: 06/22/22 10:46 AM Result Value Ref Range Glucose, POC 197 70 - 199 mg/dL POCT glucose Collection Time: 06/22/22 11:38 AM Result Value Ref Range Glucose, POC 162 70 - 199 mg/dL Comprehensive metabolic panel Collection Time: 06/22/22 3:21 PM Result Value Ref Range Sodium 138 135 - 145 mmol/L Potassium, pl 3.7 3.3 - 4.9 mmol/L Chloride 99 97 - 110 mmol/L CO2 27 22 - 32 mmol/L Anion gap 12 2 - 15 mmol/L BUN 42 (H) 8 - 25 mg/dL Creatinine 7.25 (H) 0.80 - 1.30 mg/dL Glucose 103 70 - 199 mg/dL Calcium 8.6 8.5 - 10.3 mg/dL Bilirubin, total 0.4 0.1 - 1.2 mg/dL Protein, pl 6.1 (L) 6.5 - 8.5 g/dL Albumin 2.9 (L) 3.5 - 5.0 g/dL Alk phos 112 40 - 130 Units/L ALT 31 7 - 55 Units/L AST 41 10 - 50 Units/L Magnesium Collection Time: 06/22/22 3:21 PM Result Value Ref Range Magnesium 2.9 (H) 1.4 - 2.5 mg/dL CBC with auto differential Collection Time: 06/22/22 3:21 PM Result Value Ref Range WBC 4.9 3.8 - 9.9 K/cumm Hgb 7.8 (L) 13.0 - 17.5 g/dL Hct 24.1 (L) 38.9 - 50.3 % Plt 183 150 - 400 K/cumm MPV 10.2 9.1 - 12.3 fL RBC 2.54 (L) 4.30 - 5.80 M/cumm MCV 94.9 81.3 - 96.4 fL MCH 30.7 27.1 - 33.3 pg MCHC 32.4 32.3 - 35.7 g/dL RDW CV 18.5 (H) 11.1 - 14.9 % RDW SD 58.2 (H) 35.7 - 48.1 fL NRBC abs 0.00 0.00 - 0.01 K/cumm Differential, auto Collection Time: 06/22/22 3:21 PM Result Value Ref Range Neutrophil abs 2.5 1.7 - 6.5 K/cumm Imm gran abs 0.0 0.0 - 0.1 K/cumm Lymphocyte abs 1.2 0.8 - 3.3 K/cumm Monocyte abs 0.8 0.2 - 0.8 K/cumm Eosinophil abs 0.5 0.0 - 0.5 K/cumm Basophil abs 0.0 0.0 - 0.1 K/cumm Neutrophil pct 51.2 % Imm gran pct 0.4 % Lymphocyte pct 23.3 % Monocyte pct 15.4 % Eosinophil pct 9.3 % Basophil pct 0.4 % eGFR Collection Time: 06/22/22 3:21 PM Result Value Ref Range eGFR 8 (L) 90 - 130 mL/min/1.73 m2 POCT glucose Collection Time: 06/22/22 5:37 PM Result Value Ref Range Glucose, POC 88 70 - 199 mg/dL I have reviewed the laboratory results. Imaging Results: FL Modified Barium Swallow W Video Narrative: EXAMINATION: MODIFIED BARIUM SWALLOW HISTORY: Concern for dysphagia. TECHNIQUE: This procedure was completed in conjunction with a Speech Language Pathologist. The patient was given barium of multiple different consistencies to swallow. Video fluoroscopy was employed during the exam. FINDINGS: Oral-pharyngeal swallow function is mildly impaired. Penetration: Yes There is penetration of thin liquids and nectar thick liquids. Penetration is sensed. The penetrated material is cleared. Aspiration: No Residue:Yes There is oral-pharyngeal residue of purees and solids. Residue is not sensed. The residual material is cleared. Other comments: None Impression: The swallowing mechanism is abnormal; see above comments. Please refer to the Speech Pathology procedure note for safe swallow recommendations as well as additional information regarding the oral-pharyngeal swallow function, plan of care, and recommended follow up. Dictated by: Adam Aiken M.D. The radiology attending physician has personally reviewed this study, and had reviewed and/or edited this written report and agrees with it. Electronically signed by: Félix Chahal M.D. I have independently reviewed and interpreted all results. Assessment/Plan Cardiogenic shock (HCC) Assessment & Plan -Secondary to NSTEMI, s/p Impella since removed on 06/10. Atrial fibrillation (CMS/HCC) ([facility]) Assessment & Plan -Currently rated controlled with metoprolol, CHADsVASc of 4 not on anticoagulation prior to admission. -Follow cardiology for initiation of AC. Acute on chronic HFrEF (heart failure with reduced ejection fraction) ([facility]) Assessment & Plan -With acute exacerbation complicated by pulmonary edema since resolved. -Repeat TTE following Impella removal showed recovered EF of 65% with grade I diastolic dysfunction. -Continue metoprolol tartrate, start GDMT per cardiology. ESRD (end stage renal disease) (CMS/HCC) ([facility]) Assessment & Plan -Renal consulted, s/p CRRT in the ICU now back on PD. -Trialysis catheter still in place. -Continue vitamins for renal bone mineral disease. Anemia Assessment & Plan -Likely due to anemia from ESRD, continue trending Hb, no evidence of bleeding. Underwent CT c/a/p without internal hematoma. -Monitor and trend Hb. Acute hypoxemic respiratory failure (HCC) Assessment & Plan -Secondary to ACS and flash pulmonary edema, since resolved and extubated on 06/19. Patient passed barium swallow on 06/21. Type 1 diabetes mellitus ([facility]) Assessment & Plan -Patient on insulin pump at home. -Endocrine consulted, patient currently on basal bolus regimen with NPH for hyperglycemic episodes. -Continue insulin regimen per endocrine. * NSTEMI (non-ST elevated myocardial infarction) (CMS/HCC) ([facility]) Assessment & Plan -Patient with multiple risk factors, s/p complex PCI to LCx and OM bifurcation with MARIELLA. -Continue DAPT with aspirin, Plavix and atorvastatin. Luiz Lewis DO Hospital Medicine * Tyra De La Torre MD - 06/22/2022 4:17 PM CDT CCU DAILY PROGRESS Patient: Adelia Garvin Jr. Room: [id number] Date: 06/22/2022 Summary Statement: Adelia Garvin Jr. is a 51 y.o. male with a history of CHF (EF 50% 2016), Afib (not on AC), HTN, CAD s/p stent 04/06 and 3 stent 12/07, T1DM (insulin pump at home), ESRD on PD, HLD, GERD, hyperparathyroidism, DDD, OA, gout, BEN on CPAP initially presented to OSH for n/v and chest pain, transferred to [facility] for LHC/PCI, who presented to CCU s/p complex PCI with impella and intubated. SUBJECTIVE Interval: - PD tolerated well overnight - passed barium swallow, started on diet yesterday - satting well on 2L NC - otherwise feeling well, no new complaints Brief Plan Updates: - medically stable for transfer to floor - increase metoprolol tartrate to 25 q6 hours - continue holding heparin gtt - wean NC as tolerated - stool guaiac iso yesterday's hgb decrease - tolerate afib with HR in the 110s-130 MEDICATIONS Scheduled Meds: Scheduled Meds:aspirin, 81 mg, feeding tube, Daily atorvastatin, 80 mg, feeding tube, Daily calcitRIOL, 0.25 mcg, oral, Daily [Held by Provider] calcium acetate(phosphat bind), 667 mg, oral, QID clopidogreL, 75 mg, feeding tube, Daily ezetimibe, 10 mg, feeding tube, Daily gentamicin, , topical, Daily heparin, 5,000 Units, subcutaneous, Q8H ASHLEY insulin glargine, 33 Units, subcutaneous, QAM insulin lispro, 0-10 Units, subcutaneous, TID with meals insulin lispro, 0-5 Units, subcutaneous, Nightly insulin lispro, 0-5 Units, subcutaneous, Daily insulin lispro, 10 Units, subcutaneous, TID with meals insulin NPH, 20 Units, subcutaneous, Nightly metoprolol tartrate, 25 mg, oral, Q6H pantoprazole, 40 mg, intravenous, BID polyvinyl alcohol-povidone, 1 drop, each eye, QID Continuous Infusions:peritoneal fluid with or without additives for CCPD, peritoneal fluid with or without additives for CCPD, peritoneal fluid with or without additives for CCPD, peritoneal fluid with or without additives for CCPD, [Held by Provider] heparin, 0-33 Units/kg/hr, Last Rate: Stopped (06/20/22 0014) norepinephrine, 0-2 mcg/kg/min, Last Rate: Stopped (10/31/22 0130) sodium chloride 0.9%, 10 mL/hr, Last Rate: 10 mL/hr (06/12/22 0834) sodium chloride 0.9%, 3-12 mL/hr sodium chloride 0.9%, 3-12 mL/hr, Last Rate: 3 mL/hr (06/20/22 0100) PRN Meds:. acetaminophen albuterol HFA bisacodyL bisacodyl EC dextrose 5% water dextrose 5% water fluticasone propionate heparin OR heparin lidocaine midazolam ondansetron ODT OR ondansetron phenoL polyethylene glycol ramelteon PRN Meds: acetaminophen albuterol HFA bisacodyL bisacodyl EC dextrose 5% water dextrose 5% water fluticasone propionate heparin OR heparin lidocaine midazolam ondansetron ODT OR ondansetron phenoL polyethylene glycol ramelteon OBJECTIVE Vitals: Vitals: 06/22/22 1300 BP: 143/59 Pulse: 114 Resp: Temp: SpO2: 91% Input and Output: Intake/Output Summary (Last 24 hours) at 06/22/2022 1617 Last data filed at 06/22/2022 0500 Gross per 24 hour Intake 57279 ml Output 45529 ml Net -1759 ml Ventilator Settings: N/a Physical Exam: General: Lying in bed in NAD Eyes: PERRL. Sclera nonicteric. ENT: MMM. Trialysis line in R subclavian. Cardiac: Regular rate and rhythm. Pulm: Mild diffuse crackles. No increased WOB on 2L NC. GI/Abd: Soft, obese, nondistended, BS positive Lymphatic: No significant LAD Extremities: No peripheral cyanosis. Warm extremities. Trace edema. Skin: No rash. Some bruising around L groin site. Neuro: PERRL. Able to move all four extremities. LABORATORY DATA CBC Recent Labs Lab Units 06/22/22 1521 WBC K/cumm 4.9 HEMOGLOBIN g/dL 7.8* HEMATOCRIT % 24.1* PLATELETS K/cumm 183 NEUTROS PCT % 51.2 LYMPHS PCT % 23.3 MONOS PCT % 15.4 EOS PCT % 9.3 Chem Recent Labs Lab Units 06/22/22 1138 06/22/22 0554 06/21/22 2155 SODIUM mmol/L -- -- 136 POTASSIUM PLASMA mmol/L -- -- 4.0 CHLORIDE mmol/L -- -- 98 CO2 mmol/L -- -- 24 ANIONGAP mmol/L -- -- 14 BUN SERUM mg/dL -- -- 41* CREATININE mg/dL -- -- 6.03* GLUCOSE mg/dL -- -- 276* POC GLUCOSE MONITOR mg/dL 162 < > 272* CALCIUM mg/dL -- -- 8.4* < > = values in this interval not displayed. LFTs Recent Labs Lab Units 06/21/222154 ALK PHOS Units/L 111 BILIRUBIN TOTAL mg/dL 0.5 TOTAL PROTEIN g/dL 5.9* ALT Units/L 32 AST Units/L 48 Coags Recent Labs Lab Units 06/19/222053 APTT sec 37 Cardiac Enzymes No results found for: TROPONINT Lab Results Lab Value Date/Time TROPONINI 0.03 03/21/2017 2232 TROPONINI 0.03 03/21/2017 0715 TROPONINI <0.03 11/06/2013 0612 TROPONINI <0.03 11/05/2013 2147 TROPONINI <0.03 11/05/2013 1430 TROPONINI <0.03 11/05/2013 0937 Urine Analysis ABG Recent Labs Lab Units 06/19/222053 PH ART 7.45 PCO2 ART mmHg 32* PO2 ART mmHg 75* HCO3 ART (CALC) mmol/L 23 BASE EXC ART mmol/L -1 O2 SAT ART (UYEN) % 95 Screening Labs: Iron Studies Cholesterol Hgb A1C Radiology and Other Diagnostics: XR Chest 1 View Result Date: 06/06/2022 The current study is compared with the prior radiograph dated 06/05/2022 3:14 PM. The cardiomediastinal silhouette is stable. There are persistent diffuse bilateral airspace opacities compatible withmoderate to severe pulmonary edema. The extent of the opacities is similar to slightly increased compared to the prior examination. No definite pleural effusion, though the left costophrenic angle isexcluded. No pneumothorax. Dictated by: Jersey Morales MD The radiology attending physician has personally reviewed this study, and had reviewed and/or edited this written report and agrees with it. Electronically signed by: Saurav Emerson M.D. TTE (06/08/22): SUMMARY: s/p Impella placement across the aortic valve into the LV cavity. HR 48 bpm. Pacer wire in the RA and RV. LV cavity size is moderately dilated Eccentric LV hypertrophy. Mild hypokientsis in anterior wall and anterior septem sugegsting CAD/[place] in the LAD territory. LVEF is in normal range 56%. Impaired LV relaxation. LA is mildly dilated. Mildly dilated RV cavity size with normal RV systolic function. Mildly dilated RA size. Normal Inferior vena cava. Normal aortic root. Mils to mod AR. Trace TR. PASP= 23 mm Hg +RAP. ASSESSMENT and PLAN Adelia Garvin Jr. is a 51 y.o. male with a history of CHF (EF 50% 2016), Afib (not on AC), HTN, CAD s/p stent 04/06 and 3 stent 12/07, T1DM (insulin pump at home), ESRD on PD, HLD, GERD, hyperparathyroidism, DDD, OA, gout, BEN on CPAP initially presented to [facility] for n/v and chest pain, transferred to [facility] for LHC/PCI, who presented to the CCU s/p complex PCI complicated by hypoxemic respiratory failure requiring intubation, impella support, veletri gtt. Active Issues: #Cardiogenic shock #NSTEMI s/p complex PCI #CAD S/p complex PCI to the LCx and OM, impella placed and pt was intubated and transferred to the CCU. Etiology of decompensation likely flash pulmonary edema leading to acute hypoxic respiratory distress. Impella removed and veletri weaned off 06/10/22. TTE following impella removal shows LVEF 65%, though LVSVi 25ml/m2. - contine PD per renal - dapt, atorva, ezetimibe - holding heparin gtt for now; can reintroduce once subclavian line removed - serial lactates - IR placed right SC trialysis line 06/18 #Afib Not on anticoagulation at home. CHADsVasc 4. Home metop 100 mg BID. - increase to metoprolol 25 q6h - tolerating rates up to the 130s - heparin ggt as above #Concern for distributive shock - resolved #Leukocytosis - resolved Previously elevated temp and WBC were concerning for infection. No concerns for cholecystitis, RP bleed on CT noncon c/a/p 06/11, possible VAP vs aspiration. 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 Etiology of respiratory decompensation likely flash pulmonary edema, ARDS also possible. Less likely but also possible PNA. Arrived to CCU on ventilator settings: 34/500/90/15, not requiring pressors. Impella removed 06/10. - s/p extubation - CPAP overnight - on 2 L NC - wean as able CARDIAC #HFrEF TTE (2016): EF 50%. TTE (2021) with bubble study showed moderate concentric LVH with EF 65% and bubble study was positive with valsalva. - holding home hydral/imdur/lasix RENAL #ESRD on PD #Volume overload Presented to CCU in AHRF likely s/t volume overload. - restarted on PD on 06/21 - renal following, recs appreciated - trialysis placed 06/18 GI #Cholecystitis Patient with CT CAP and RUQ US c/f cholecystitis at OSH. Repeat CT 06/11 without e/o cholecystitis.Has been unable to get HIDA scan due to decompensation. - HIDA scan when stable - gen surg consulted: recommended against surgical procedure or perc cholesystostomy - D/c IV Abx: vanc (06/10-06/19), kaylah (06/05-06/19) - Repeat RUQ US: Overdistended gallbladder with biliary sludge. No wall thickening or other signs of cholecystitis. Findings are probably related to prolonged fasting. If there is persistent clinicalconcern, consider HIDA scan. #Nutrition - continue tube feeds - LOCKSTITCH HEMMER eval - remove NGT and restart diet as able; plan for barium swallow today - d/c laxatives and d/c fecal management system if able ENDO #T1DM #DKA - resolved Pt has T1DM; has insulin pump at home. Prior to intubation was on lantus 33u qam, humalog 9u tidac,resistant correctional humalog tidac, hs. In CCU, patient with DKA: BG in 300s, AG 21, K 3.3, BHB 2.3, ABG with pCO2 27. Treated with insulin gtt, D5, and K repletion. Labs improved to BG 100s, AG 10, K 4.0, BHB 0.1, pCO2 37. - TF currently held iso diarrhea; transition to PO pending mbs - glargine 33U, humalog 10u post-meal, NPH 20u pre-PD - continue to adjust regimen as patient transitions to PO and PD HEME/ONC #Anemia Hgb 9.5 on admission to [facility] and 7.8 on arrival to CCU. Hgb subsequently measured at 4.3, but actually 7.5 on re-draw. Received consent for blood transfusion if necessary from patient's brother. - transfuse for Hgb <7, maintain active T&S - s/p 1 unit pRBC on 06/20, f/u H/H - unclear source of bleed - no melena/hematochezia, no flank pain, no overt sign of bleeding - could consider repeat CT if Hgb continues to fall - CTM H/H #Agitation - resolved #Sedation - resolved Intubated 06/07. Extubated 06/20. Checklist [] Central Line/ PICC: right SC trialysis placed 06/18 [] DVT PPX: heparin gtt held [] PUD PPX: IV 40 pantoprazole BID [] Glucose Control: glargine 33U, lispro 6 q4h, SSI q4h [] Weaning/Extubation: on vent, plan to extubate today [] HOB >30 [] Sedation: fentanyl, precedex [] Volume Status: FBG neg [] Medication Reviewed [] Nutrition: NG placed, currently sedated/on vent [] PT/OT: not consulted as patient intubated/sedated [] AM Labs: ordered [] Invasive Devices: none [] External urinary Catheter: placed 06/08 [] Family Updated: called evening 06/07 [] Code Status: Full Code Attending MD to make comment on patient risk/complexity. Tyra De La Torre MD Resident Physician, Internal Medicine Cosigned by Rafa Youngblood MD PhD at 06/22/2022 9:56 PM CDT Associated attestation - Rafa Youngblood MD PhD - 06/22/2022 9:56 PM CDT Critical Care Time: I have spent 45 minutes in full attendance with this critically ill patient making frequent reassessments and decisions regarding this patient's complex medical care. Critical care time was exclusive of separately billable procedures, treating other patients and teaching time. Critical care was necessary to treat or prevent imminent or life-threatening deterioration of the following conditions: Acute hypoxemic respiratory failure Complex CAD Cardiogenic shock ESRD, on PD C/F cholecystitis Diabetes mellitus Atrial fibrillation Acute blood loss anemia HISTORY Tolerated PD overnight. Feels well. Eating this AM. DIAGNOSTIC REVIEW Blood pressure 99/66, pulse 79, temperature 36.7 ??C (98.1 ??F), temperature source Oral, resp. rate 20, height 177.8 cm (5' 10 ), weight 120.5 kg (265 lb 10.5 oz), SpO2 96 %. I have reviewed the pertinent laboratory test results, including: ASSESSMENT AND PLAN: 1) ESRD -Continue PD, per renal 2) Acute blood loss anemia -In setting of triple tx (ASA, plavix, hep gtt); appears to have subsided. CT neg for bleed. -Holding heparin -Transfusion to Hgb >7 -Continue large bore IV access, PPI BID -Guiac stools 2) Acute hypoxic respiratory failure -Remains on NC 3) CAD -Remains on ASA, statin, plaviz, Ezitimibe 4) Afib -Holding A/C for now; will need to balance risks / benefits moving forward. -Continue low dose metop and increase as tolerated 5) DM -Continue basal / bolus insulin regimen -Passed swallow; continue modified diet. Attending Documentation: I have seen and examined this patient on the day of service. I have reviewed and confirmed the history, physical exam, laboratory and radiographic data with the house staff as documented in the ICU resident note. I have reviewed and discussed my treatment plan with the ICU team and other medical/investigations consultant staff. * Tyra De La Torre MD - 06/21/2022 9:15 AM CDT CCU DAILY PROGRESS Patient: Adelia Garvin Jr. Room: [id number] Date: 06/21/2022 Summary Statement: Adelia Garvin Jr. is a 51 y.o. male with a history of CHF (EF 50% 2016), Afib (not on AC), HTN, CAD s/p stent 04/06 and 3 stent 12/07, T1DM (insulin pump at home), ESRD on PD, HLD, GERD, hyperparathyroidism, DDD, OA, gout, BEN on CPAP initially presented to [facility]SH for n/v and chest pain, transferred to [facility] for LHC/PCI, who presented to CCU s/p complex PCI with impella and intubated. SUBJECTIVE Interval: - CT CAP with no evidence of hematoma - did not tolerate SLED yesterday; shaking / chills / afib w rvr to 140s - increased amio ggt from 0.5 to 1/hr for afib w rvr to 140s iso SLED> SLED discontinued - d/c'd laxatives and dignicare but had diarrhea overnight - tube feeds held overnight iso GI upset - satting well on 2L NC - otherwise feeling well, no new complaints Brief Plan Updates: - touch base with nephrology regarding dialysis and plan transition back to PD/HD - start metoprolol tartrate 12.5 q6 hours - continue holding heparin gtt due to c/f bleeding - discontinue amio gtt - modified barium swallow for possible removal of NGT; will modify insulin pending PO - wean NC as tolerated - stool guaiac iso yesterday's hgb decrease - tolerate afib with HR in the 110s-130 MEDICATIONS Scheduled Meds: Scheduled Meds:aspirin, 81 mg, feeding tube, Daily atorvastatin, 80 mg, feeding tube, Daily calcitRIOL, 0.25 mcg, feeding tube, Daily [Held by Provider] calcium acetate(phosphat bind), 667 mg, oral, QID chlorhexidine, 15 mL, mouth/throat, BID clopidogreL, 75 mg, feeding tube, Daily ezetimibe, 10 mg, feeding tube, Daily gentamicin, , topical, Daily insulin glargine, 33 Units, subcutaneous, QAM insulin lispro, 0-10 Units, subcutaneous, Q4H ASHLEY insulin lispro, 6 Units, subcutaneous, Q4H pantoprazole, 40 mg, intravenous, BID polyvinyl alcohol-povidone, 1 drop, each eye, QID Continuous Infusions:amiodarone, 1 mg/min, Last Rate: 1 mg/min (06/21/22 0900) peritoneal fluid with or without additives for CAPD, [Held by Provider] heparin, 0-33 Units/kg/hr, Last Rate: Stopped (06/20/22 0014) norepinephrine, 0-2 mcg/kg/min, Last Rate: Stopped (06/20/22 0130) sodium chloride 0.9%, 10 mL/hr, Last Rate: 10 mL/hr (06/12/22 0834) sodium chloride 0.9%, 3-12 mL/hr sodium chloride 0.9%, 3-12 mL/hr, Last Rate: 3 mL/hr (06/20/22 0100) PRN Meds:. acetaminophen albuterol HFA bisacodyL bisacodyl EC dextrose 5% water dextrose 5% water fluticasone propionate heparin OR heparin lidocaine midazolam ondansetron ODT OR ondansetron phenoL polyethylene glycol ramelteon PRN Meds: acetaminophen albuterol HFA bisacodyL bisacodyl EC dextrose 5% water dextrose 5% water fluticasone propionate heparin OR heparin lidocaine midazolam ondansetron ODT OR ondansetron phenoL polyethylene glycol ramelteon OBJECTIVE Vitals: Vitals: 06/21/22 0900 BP: 133/70 Pulse: 109 Resp: 17 Temp: SpO2: 98% Input and Output: Intake/Output Summary (Last 24 hours) at 06/21/2022914 Last data filed at 06/21/2022 0900 Gross per 24 hour Intake 1374.48 ml Output 717 ml Net 657.48 ml Ventilator Settings: N/a Physical Exam: General: Lying in bed in NAD Eyes: PERRL. Sclera nonicteric. ENT: MMM. Trialysis line in R subclavian. Cardiac: Regular rate and rhythm. Pulm: Mild diffuse crackles. No increased WOB on 2L NC. GI/Abd: Soft, obese, nondistended, BS positive Lymphatic: No significant LAD Extremities: No peripheral cyanosis. Warm extremities. Trace edema. Skin: No rash. Some bruising around L groin site. Neuro: PERRL. Able to move all four extremities. LABORATORY DATA CBC Recent Labs Lab Units 06/21/22 0021 WBC K/cumm 6.5 HEMOGLOBIN g/dL 7.4* HEMATOCRIT % 23.6* PLATELETS K/cumm 179 NEUTROS PCT % 67.5 LYMPHS PCT % 18.3 MONOS PCT % 11.7 EOS PCT % 1.1 Chem Recent Labs Lab Units 06/21/22 0834 06/20/22194806/20/221945 SODIUM mmol/L -- -- 137 POTASSIUM PLASMA mmol/L -- -- 4.9 CHLORIDE mmol/L -- -- 102 CO2 mmol/L -- -- 23 ANIONGAP mmol/L -- -- 12 BUN SERUM mg/dL -- -- 26* CREATININE mg/dL -- -- 3.87* GLUCOSE mg/dL -- -- 188 POC GLUCOSE MONITOR mg/dL 199 < > -- CALCIUM mg/dL -- -- 8.5 < > = values in this interval not displayed. LFTs Recent Labs Lab Units 06/20/221945 ALK PHOS Units/L 123 BILIRUBIN TOTAL mg/dL 0.6 TOTAL PROTEIN g/dL 5.7* ALT Units/L 29 AST Units/L 61* Coags Recent Labs Lab Units 06/19/222053 APTT sec 37 Cardiac Enzymes No results found for: TROPONINT Lab Results Lab Value Date/Time TROPONINI 0.03 03/21/2017 2232 TROPONINI 0.03 03/21/2017 0715 TROPONINI <0.03 11/06/2013 0612 TROPONINI <0.03 11/05/2013 2147 TROPONINI <0.03 11/05/2013 1430 TROPONINI <0.03 11/05/2013 0937 Urine Analysis ABG Recent Labs Lab Units 06/19/222053 PH ART 7.45 PCO2 ART mmHg 32* PO2 ART mmHg 75* HCO3 ART (CALC) mmol/L 23 BASE EXC ART mmol/L -1 O2 SAT ART (UYEN) % 95 Screening Labs: Iron Studies Cholesterol Hgb A1C Radiology and Other Diagnostics: XR Chest 1 View Result Date: 06/06/2022 The current study is compared with the prior radiograph dated 06/05/2022 3:14 PM. The cardiomediastinal silhouette is stable. There are persistent diffuse bilateral airspace opacities compatible withmoderate to severe pulmonary edema. The extent of the opacities is similar to slightly increased compared to the prior examination. No definite pleural effusion, though the left costophrenic angle isexcluded. No pneumothorax. Dictated by: Jersey Morales MD The radiology attending physician has personally reviewed this study, and had reviewed and/or edited this written report and agrees with it. Electronically signed by: Saurav Emerson M.D. TTE (06/08/22): SUMMARY: s/p Impella placement across the aortic valve into the LV cavity. HR 48 bpm. Pacer wire in the RA and RV. LV cavity size is moderately dilated Eccentric LV hypertrophy. Mild hypokientsis in anterior wall and anterior septem sugegsting CAD/[place] in the LAD territory. LVEF is in normal range 56%. Impaired LV relaxation. LA is mildly dilated. Mildly dilated RV cavity size with normal RV systolic function. Mildly dilated RA size. Normal Inferior vena cava. Normal aortic root. Mils to mod AR. Trace TR. PASP= 23 mm Hg +RAP. ASSESSMENT and PLAN Adelia Garvin Jr. is a 51 y.o. male with a history of CHF (EF 50% 2017), Afib (not on AC), HTN, CAD s/p stent 04/06 and 3 stent 12/07, T1DM (insulin pump at home), ESRD on PD, HLD, GERD, hyperparathyroidism, DDD, OA, gout, BEN on CPAP initially presented to [facility] for n/v and chest pain, transferred to [facility] for LHC/PCI, who presented to the CCU s/p complex PCI complicated by hypoxemic respiratory failure requiring intubation, impella support, veletri gtt. Active Issues: #Cardiogenic shock #NSTEMI s/p complex PCI #CAD S/p complex PCI to the LCx and OM, impella placed and pt was intubated and transferred to the CCU. Etiology of decompensation likely flash pulmonary edema leading to acute hypoxic respiratory distress. Impella removed and veletri weaned off 06/10/22. TTE following impella removal shows LVEF 65%, though LVSVi 25ml/m2. - dialysis per renal today - SLED vs PD - dapt, atorva, ezetimibe - holding heparin gtt iso low hemoglobin - serial lactates - IR placed right SC trialysis line 06/18 #Afib Not on anticoagulation at home. CHADsVasc 4. Home metop 100 mg BID. - stop amio gtt - tolerating rates up to the 130s - heparin ggt as above - start metoprolol 12.5 q6h #Concern for distributive shock - resolved #Leukocytosis - resolved Previously elevated temp and WBC were concerning for infection. No concerns for cholecystitis, RP bleed on CT noncon c/a/p 06/11, possible VAP vs aspiration. 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 Etiology of respiratory decompensation likely flash pulmonary edema, ARDS also possible. Less likely but also possible PNA. Arrived to CCU on ventilator settings: 34/500/90/15, not requiring pressors. Impella removed 06/10. - s/p extubation - CPAP overnight - on 2 L NC - wean as able CARDIAC #HFrEF TTE (2016): EF 50%. TTE (2021) with bubble study showed moderate concentric LVH with EF 65% and bubble study was positive with valsalva. - holding home hydral/imdur/lasix RENAL #ESRD on PD #Volume overload Presented to CCU in AHRF likely s/t volume overload. - renal following, recs appreciated - goal to transition to PD - trialysis placed 06/18 GI #Cholecystitis Patient with CT CAP and RUQ US c/f cholecystitis at OSH. Repeat CT 06/11 without e/o cholecystitis.Has been unable to get HIDA scan due to decompensation. - HIDA scan when stable - gen surg consulted: recommended against surgical procedure or perc cholesystostomy - D/c IV Abx: vanc (06/10-06/19), kaylah (06/05-06/19) - Repeat RUQ US: Overdistended gallbladder with biliary sludge. No wall thickening or other signs of cholecystitis. Findings are probably related to prolonged fasting. If there is persistent clinicalconcern, consider HIDA scan. #Nutrition - continue tube feeds - LOCKSTITCH HEMMER eval - remove NGT and restart diet as able; plan for barium swallow today - d/c laxatives and d/c fecal management system if able ENDO #T1DM #DKA - resolved Pt has T1DM; has insulin pump at home. Prior to intubation was on lantus 33u qam, humalog 9u tidac,resistant correctional humalog tidac, hs. In CCU, patient with DKA: BG in 300s, AG 21, K 3.3, BHB 2.3, ABG with pCO2 27. Treated with insulin gtt, D5, and K repletion. Labs improved to BG 100s, AG 10, K 4.0, BHB 0.1, pCO2 37. - TF currently held iso diarrhea; transition to PO pending mbs - glargine 33U, humalog 6U q4h + SSI - if TF: humalog to 8u q4h - if PO: transition short-acting to humalog 4u post-meal - continue to adjust regimen as patient transitions from TF to oral intake HEME/ONC #Anemia Hgb 9.5 on admission to [facility] and 7.8 on arrival to CCU. Hgb subsequently measured at 4.3, but actually 7.5 on re-draw. Received consent for blood transfusion if necessary from patient's brother. - transfuse for Hgb <7, maintain active T&S - s/p 1 unit pRBC on 06/20, f/u H/H - unclear source of bleed - no melena/hematochezia, no flank pain, no overt sign of bleeding - could consider repeat CT if Hgb continues to fall - CTM H/H #Agitation - resolved #Sedation - resolved Intubated 06/07. Extubated 06/20. Checklist [] Central Line/ PICC: right SC trialysis placed 06/18 [] DVT PPX: heparin gtt held [] PUD PPX: IV 40 pantoprazole BID [] Glucose Control: glargine 33U, lispro 6 q4h, SSI q4h [] Weaning/Extubation: on vent, plan to extubate today [] HOB >30 [] Sedation: fentanyl, precedex [] Volume Status: FBG neg [] Medication Reviewed [] Nutrition: NG placed, currently sedated/on vent [] PT/OT: not consulted as patient intubated/sedated [] AM Labs: ordered [] Invasive Devices: none [] External urinary Catheter: placed 06/08 [] Family Updated: called evening 06/07 [] Code Status: Full Code Attending MD to make comment on patient risk/complexity. Tyra De La Torre MD Resident Physician, Internal Medicine Cosigned by Rafa Youngblood MD PhD at 06/21/2022 2:32 PM CDT Associated attestation - Rafa Youngblood MD PhD - 06/21/2022 2:32 PM CDT Critical Care Time: I have spent 45 minutes in full attendance with this critically ill patient making frequent reassessments and decisions regarding this patient's complex medical care. Critical care time was exclusive of separately billable procedures, treating other patients and teaching time. Critical care was necessary to treat or prevent imminent or life-threatening deterioration of the following conditions: Acute hypoxemic respiratory failure Complex CAD Cardiogenic shock ESRD, on PD C/F cholecystitis Diabetes mellitus Atrial fibrillation Acute blood loss anemia HISTORY Did not tolerate SLED overnight; rigors / chills, Afib/ RVR. Recent diarrhea. This AM, actually feels significantly anthony.r DIAGNOSTIC REVIEW Blood pressure 147/53, pulse 101, temperature 37.2 ??C (99 ??F), temperature source Oral, resp. rate 29, height 177.8 cm (5' 10 ), weight 118.6 kg (261 lb 7.5 oz), SpO2 93 %. I have reviewed the pertinent laboratory test results, including: -Hgb 9.0, LA 1.0 ASSESSMENT AND PLAN: 1) ESRD -Tolerating IHD; transition to PD and continue with line for a few days until we are sure he is volume euvolemic 2) Acute blood loss anemia -In setting of triple tx (ASA, plavix, hep gtt); appears to have subsided. CT neg for bleed. -Holding heparin -Transfusion to Hgb >7 -Continue large bore IV access, PPI BID -Guiac stools 2) Acute hypoxic respiratory failure -Remains on NC 3) CAD -Remains on ASA, statin, plaviz, Ezitimibe 4) Afib -Holding A/C in setting of ABLA -Restart low dose metop and increase as tolerated 5) DM -Continue basal / bolus insulin regimen 6) FEN/GI -Speech eval /barrium swallow today Attending Documentation: I have seen and examined this patient on the day of service. I have reviewed and confirmed the history, physical exam, laboratory and radiographic data with the house staff as documented in the ICU resident note. I have reviewed and discussed my treatment plan with the ICU team and other medical/investigations consultant staff. * Jess Redmond, PT - 06/21/2022 7:55 AM CDT Physical Therapy 06/21/22 0755 General PT Missed Visit Reason Bedrest Recommendation/Plan PT Frequency Monitor status PT - Next Appointment 06/23/22 * Margaret Escobar RN - 06/20/2022 4:58 PM CDT Patient required 1 Unit RBC, tolerated transfusion well. Completionof CRRT to transition SLED. Patient increase of tachyrhythmia to 140. MD notified attempt for ECG, however unable to due to severityof patient shivering.Up titrate in warming blanket unable to resolve shivering. Md order of increase of Amio to 1 and Amio bolus. Patient pressures remained stable, tachyarrythmia decreased and back to baseline afib 110s. * Lavern Morrison MD - 06/20/2022 6:32 AM CDT CCU DAILY PROGRESS Patient: Adelia Garvin Jr. Room: [place] [id number] Date: 06/20/2022 Summary Statement: Adelia Garvin Jr. is a 51 y.o. male with a history of CHF (EF 50% 2016), Afib (not on AC), HTN, CAD s/p stent 04/06 and 3 stent 12/07, T1DM (insulin pump at home), ESRD on PD, HLD, GERD, hyperparathyroidism, DDD, OA, gout, BEN on CPAP initially presented to OSH for n/v and chest pain, transferred to [facility] for LHC/PCI, who presented to CCU s/p complex PCI with impella and intubated. SUBJECTIVE Interval: - Extubated yesterday - Remains in Afib RVR with some rates up to 130s, remains on amio gtt 0.5 mg/min and s/p IV amio bolus - Hgb 6.8, repeat at 6.2, s/p 1 unit pRBCs - Heparin gtt held - Levo stopped at 1:30 am - RUQ US read: Overdistended gallbladder with biliary sludge. No wall thickening or other signs of cholecystitis. Findings are probably related to prolonged fasting. If there is persistent clinical concern, consider HIDA scan. Brief Plan Updates: - tolerate Afib with HR in the 110s-130s - f/u CBC s/p transfusion - continue holding heparin gtt - continue amio gtt 0.5 - LOCKSTITCH HEMMER eval for possible removal of NGT - d/c laxatives and d/c fecal management system if able - touch base with nephrology regarding dialysis and plan transition back to PD/HD MEDICATIONS Scheduled Meds: Scheduled Meds:aspirin, 81 mg, feeding tube, Daily atorvastatin, 80 mg, feeding tube, Daily calcitRIOL, 0.25 mcg, feeding tube, Daily [Held by Provider] calcium acetate(phosphat bind), 667 mg, oral, QID chlorhexidine, 15 mL, mouth/throat, BID clopidogreL, 75 mg, feeding tube, Daily docusate, 100 mg, feeding tube, Daily ezetimibe, 10 mg, feeding tube, Daily gentamicin, , topical, Daily insulin glargine, 33 Units, subcutaneous, QAM insulin lispro, 0-10 Units, subcutaneous, Q4H ASHLEY insulin lispro, 6 Units, subcutaneous, Q4H pantoprazole, 40 mg, intravenous, BID polyethylene glycol, 17 g, feeding tube, BID polyvinyl alcohol-povidone, 1 drop, each eye, QID senna, 8.8 mg, oral, Nightly Continuous Infusions:amiodarone, 0.5 mg/min, Last Rate: 0.5 mg/min (06/20/22 0600) [Held by Provider] heparin, 0-33 Units/kg/hr, Last Rate: Stopped (06/20/22 0014) norepinephrine, 0-2 mcg/kg/min, Last Rate: Stopped (06/20/22 0130) NxStage 4-potassium/2.5-calcium, 1,400 mL/hr, Last Rate: 1,400 mL/hr (06/20/22210) NxStage 4-potassium/2.5-calcium, 1,400 mL/hr, Last Rate: 1,400 mL/hr (06/20/22211) sodium chloride 0.9%, 10 mL/hr, Last Rate: 10 mL/hr (06/12/22 0834) sodium chloride 0.9%, 1,000 mL sodium chloride 0.9%, 3-12 mL/hr sodium chloride 0.9%, 3-12 mL/hr, Last Rate: 3 mL/hr (06/20/22 0100) vasopressin in 5% dextrose, PRN Meds:. acetaminophen albuterol HFA bisacodyL bisacodyl EC dextrose 5% water dextrose 5% water fluticasone propionate Dialysis Access Care AND heparin heparin OR heparin lidocaine midazolam ondansetron ODT OR ondansetron phenoL polyethylene glycol ramelteon sodium chloride 0.9% PRN Meds: acetaminophen albuterol HFA bisacodyL bisacodyl EC dextrose 5% water dextrose 5% water fluticasone propionate [facility] AND heparin heparin OR heparin lidocaine midazolam ondansetron ODT OR ondansetron phenoL polyethylene glycol ramelteon sodium chloride 0.9% OBJECTIVE Vitals: Vitals: 06/20/22 0600 BP: Pulse: 110 Resp: 19 Temp: SpO2: 97% Input and Output: Intake/Output Summary (Last 24 hours) at 06/20/2022 0632 Last data filed at 06/20/2022 0600 Gross per 24 hour Intake 1523.13 ml Output 2775 ml Net -1251.87 ml Ventilator Settings: N/a Physical Exam: General: Lying in bed in NAD Eyes: PERRL. Sclera nonicteric. ENT: MMM. Trialysis line in R subclavian. Cardiac: Regular rate and rhythm. Pulm: Mild diffuse crackles. No increased WOB on 2L NC. GI/Abd: Soft, obese, nondistended, BS positive Lymphatic: No significant LAD Extremities: No peripheral cyanosis. Warm extremities. Trace edema. Skin: No rash. Some bruising around L groin site. Neuro: PERRL. Able to move all four extremities. LABORATORY DATA CBC Recent Labs Lab Units 06/20/22 0025 06/19/225 06/19/222053 WBC K/cumm -- -- 8.4 HEMOGLOBIN g/dL 6.2* < > 6.8* HEMATOCRIT % 19.8* < > 20.5* PLATELETS K/cumm -- -- 255 NEUTROS PCT % -- -- 59.1 LYMPHS PCT % -- -- 24.4 MONOS PCT % -- -- 13.7 EOS PCT % -- -- 1.3 < > = values in this interval not displayed. Chem Recent Labs Lab Units 06/20/22 0457 06/19/22205406/19/222053 SODIUM mmol/L -- -- 140 POTASSIUM PLASMA mmol/L -- -- 4.8 CHLORIDE mmol/L -- -- 102 CO2 mmol/L -- -- 25 ANIONGAP mmol/L -- -- 13 BUN SERUM mg/dL -- -- 32* CREATININE mg/dL -- -- 4.27* GLUCOSE mg/dL -- -- 148 POC GLUCOSE MONITOR mg/dL 174 < > -- CALCIUM mg/dL -- -- 8.3* < > = values in this interval not displayed. LFTs Recent Labs Lab Units 06/19/222053 ALK PHOS Units/L 150* BILIRUBIN TOTAL mg/dL 0.5 TOTAL PROTEIN g/dL 6.1* ALT Units/L 32 AST Units/L 61* Coags Recent Labs Lab Units 06/19/222053 APTT sec 37 Cardiac Enzymes No results found for: TROPONINT Lab Results Lab Value Date/Time TROPONINI 0.03 03/21/2017 2232 TROPONINI 0.03 03/21/2017 0715 TROPONINI <0.03 11/06/2013 0612 TROPONINI <0.03 11/05/2013 2147 TROPONINI <0.03 11/05/2013 1430 TROPONINI <0.03 11/05/2013 0937 Urine Analysis ABG Recent Labs Lab Units 06/19/222053 PH ART 7.45 PCO2 ART mmHg 32* PO2 ART mmHg 75* HCO3 ART (CALC) mmol/L 23 BASE EXC ART mmol/L -1 O2 SAT ART (UYEN) % 95 Screening Labs: Iron Studies Cholesterol Hgb A1C Radiology and Other Diagnostics: XR Chest 1 View Result Date: 06/06/2022 The current study is compared with the prior radiograph dated 06/05/2022 3:14 PM. The cardiomediastinal silhouette is stable. There are persistent diffuse bilateral airspace opacities compatible withmoderate to severe pulmonary edema. The extent of the opacities is similar to slightly increased compared to the prior examination. No definite pleural effusion, though the left costophrenic angle isexcluded. No pneumothorax. Dictated by: Jersey Morales MD The radiology attending physician has personally reviewed this study, and had reviewed and/or edited this written report and agrees with it. Electronically signed by: Saurav Emerson M.D. TTE (06/08/22): SUMMARY: s/p Impella placement across the aortic valve into the LV cavity. HR 48 bpm. Pacer wire in the RA and RV. LV cavity size is moderately dilated Eccentric LV hypertrophy. Mild hypokientsis in anterior wall and anterior septem sugegsting CAD/[place] in the LAD territory. LVEF is in normal range 56%. Impaired LV relaxation. LA is mildly dilated. Mildly dilated RV cavity size with normal RV systolic function. Mildly dilated RA size. Normal Inferior vena cava. Normal aortic root. Mils to mod AR. Trace TR. PASP= 23 mm Hg +RAP. ASSESSMENT and PLAN Adelia Garvin Jr. is a 51 y.o. male with a history of CHF (EF 50% 2016), Afib (not on AC), HTN, CAD s/p stent 04/06 and 3 stent 12/07, T1DM (insulin pump at home), ESRD on PD, HLD, GERD, hyperparathyroidism, DDD, OA, gout, BEN on CPAP initially presented to [facility] for n/v and chest pain, transferred to [facility] for LHC/PCI, who presented to the CCU s/p complex PCI complicated by hypoxemic respiratory failure requiring intubation, impella support, veletri gtt. Active Issues: #Cardiogenic shock #NSTEMI s/p complex PCI #CAD S/p complex PCI to the LCx and OM, impella placed and pt was intubated and transferred to the CCU. Etiology of decompensation likely flash pulmonary edema leading to acute hypoxic respiratory distress. Impella removed and veletri weaned off 06/10/22. TTE following impella removal shows LVEF 65%, though LVSVi 25ml/m2. - IR placed right SC trialysis line 06/18 - CRRT for fluid removal - set at 200 ml/hr fluid removal rate - dapt, atorva - heparin gtt held iso low hemoglobin - serial lactates #Afib Not on anticoagulation at home. CHADsVasc 4. Home metop 100 mg BID. - s/p amio bolux overnight, continue on amio gtt 0.5 - tolerating rates up to the 130s - holding heparin ggt - continue to hold home metoprolol #Concern for distributive shock - resolved #Leukocytosis - resolved Previously elevated temp and WBC were concerning for infection. No concerns for cholecystitis, RP bleed on CT noncon c/a/p 06/11, possible VAP vs aspiration. - NGTD on tracheal aspirate cx, blood cx, negative c.diff 06/15 - WBC stable at 8.4 - antibiotics discontinued. 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 Etiology of respiratory decompensation likely flash pulmonary edema, ARDS also possible. Less likely but also possible PNA. Arrived to CCU on ventilator settings: 34/500/90/15, not requiring pressors. Impella removed 06/10. - s/p extubation - CPAP overnight - on 4 L NC - wean as able CARDIAC #HFrEF TTE (2016): EF 50%. TTE (2021) with bubble study showed moderate concentric LVH with EF 65% and bubble study was positive with valsalva. - holding home hydral/imdur/lasix RENAL #ESRD on PD #Volume overload Presented to CCU in AHRF likely s/t volume overload. - continue CRRT via trialysis placed 06/18 - renal following, recs appreciated - FBG negative 1L on CRRT - touch base with renal regarding transition back to PD GI #Cholecystitis Patient with CT CAP and RUQ US c/f cholecystitis at OSH. Repeat CT 06/11 without e/o cholecystitis.Has been unable to get HIDA scan due to decompensation. - HIDA scan when stable - gen surg consulted: recommended against surgical procedure or perc cholesystostomy - D/c IV Abx: vanc (06/10-06/19), kaylah (06/05-06/19) - Repeat RUQ US: Overdistended gallbladder with biliary sludge. No wall thickening or other signs of cholecystitis. Findings are probably related to prolonged fasting. If there is persistent clinicalconcern, consider HIDA scan. #Nutrition - Has NG tube, was previously getting TF while intubated - restart tube feeds - LOCKSTITCH HEMMER eval - remove NGT and restart diet as able - d/c laxatives and d/c fecal management system if able ENDO #T1DM #DKA - resolved Pt has T1DM; has insulin pump at home. Prior to intubation was on lantus 33u qam, humalog 9u tidac,resistant correctional humalog tidac, hs. In CCU, patient with DKA: BG in 300s, AG 21, K 3.3, BHB 2.3, ABG with pCO2 27. Treated with insulin gtt, D5, and K repletion. Labs improved to BG 100s, AG 10, K 4.0, BHB 0.1, pCO2 37. - TF stopped since line placed by IR - BHB improved to 0.7 from 1.3 from 0.9 after insulin regimen increased to: glargine 33U, humalog 6U q4h + SSI - continue to adjust regimen as patient transitions from TF to oral intake HEME/ONC #Anemia Hgb 9.5 on admission to [facility] and 7.8 on arrival to CCU. Hgb subsequently measured at 4.3, but actually 7.5 on re-draw. Received consent for blood transfusion if necessary from patient's brother. - transfuse for Hgb <7 - maintain active T&S - s/p 1 unit pRBC on 06/20, f/u H/H - Unclear source of bleed - no melena/hematochezia, no flank pain, no overt sign of bleeding - could consider repeat CT if Hgb continues to fall - CTM H/H #Agitation - resolved #Sedation - resolved Intubated 06/07. Extubated 06/20. Checklist [] Central Line/ PICC: right SC trialysis placed 06/18 [] DVT PPX: heparin gtt held [] PUD PPX: IV 40 pantoprazole BID [] Glucose Control: glargine 33U, lispro 6 q4h, SSI q4h [] Weaning/Extubation: on vent, plan to extubate today [] HOB >30 [] Sedation: fentanyl, precedex [] Volume Status: FBG neg [] Medication Reviewed [] Nutrition: NG placed, currently sedated/on vent [] PT/OT: not consulted as patient intubated/sedated [] AM Labs: ordered [] Invasive Devices: none [] External urinary Catheter: placed 06/08 [] Family Updated: called evening 06/07 [] Code Status: Full Code Attending MD to make comment on patient risk/complexity. Lavern Morrison MD Resident Physician, Internal Medicine Cosigned by Rafa Youngblood MD PhD at 06/20/2022 1:07 PM CDT Associated attestation - Rafa Youngblood MD PhD - 06/20/2022 1:07 PM CDT Critical Care Time: I have spent 60 minutes in full attendance with this critically ill patient making frequent reassessments and decisions regarding this patient's complex medical care. Critical care time was exclusive of separately billable procedures, treating other patients and teaching time. Critical care was necessary to treat or prevent imminent or life-threatening deterioration of the following conditions: Acute hypoxemic respiratory failure Complex CAD Cardiogenic shock ESRD, on PD C/F cholecystitis Diabetes mellitus Atrial fibrillation Acute blood loss anemia HISTORY Overnight, became anemic with Hgb to 6.2. Received 1U pRBCs. 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 DIAGNOSTIC REVIEW Blood pressure 126/58, pulse 120, temperature 36.9 ??C (98.4 ??F), temperature source Oral, resp. rate 16, height 177.8 cm (5' 10 ), weight 123 kg (271 lb 2.7 oz), SpO2 92 %. I have reviewed the pertinent laboratory test results, including: -Hgb 6.2-->6.6 (1U) -RUQ US: overdistended GB, no other c/f cholecysitis -LA 1.3 ASSESSMENT AND PLAN: 1) ESRD -Tolerating IHD with fluid removal 2) Acute blood loss anemia -In setting of triple tx (ASA, plavix, hep gtt) -Holding heparin -Transfusion to Hgb >7 -Will plan on CT C/A/P given inappropriate bump in Hgb -Continue large bore IV access, PPI BID; consult GI if melena 2) Acute hypoxic respiratory failure -Remains on NC 3) CAD -Cotninue medical management 4) C/F cholecystitis -Follow clinically; RUQ not suggestive 5) Afib -Holding A/C in setting of ABLA 6) DM -Continue basal / bolus insulin regimen 7) FEN/GI -Speech eval for swallow Attending Documentation: I have seen and examined this patient on the day of service. I have reviewed and confirmed the history, physical exam, laboratory and radiographic data with the house staff as documented in the ICU resident note. I have reviewed and discussed my treatment plan with the ICU team and other medical/investigations consultant staff. * Bobby Mary MD - 06/19/2022 2:07 PM CDT Pulmonary Daily Progress Subjective Interval History: CVVHD resumed and was negative ~3L yesterday. More alert this AM on same sedation. PSV trial ongoing and ABG reassuring after 2 hours of PSV. Objective Vitals: 24hr Min/Max: Temp Min: 35.8 ??C (96.4 ??F) Max: 38.8 ??C (101.8 ??F) Pulse Min: 82 Max: 130 Resp Min: 16 Max: 27 SpO2 Min: 93 % Max: 99 % Most Recent : Vitals: 06/19/22 1300 BP: Pulse: 120 Resp: 24 Temp: 36.8 ??C (98.2 ??F) SpO2: 93% I/O last 2 completed shifts: In: 11564.4 [I.V.:1014.4; Other:87578; NG/GT:190; IV Piggyback:420] Out: 44605 [Other:60035] I/O this shift: In: 480.2 [I.V.:480.2] Out: 767 [Other:767] Physical Exam: Awake, following simple commands PIP upper 20s, Ve ~11 l/min Coarse = BS RRR Mild OLVIN Lab/Radiology/Diagnostic Review: Laboratory review: Lab results in the last 24 hours: Recent Results (from the past 24 hour(s)) POCT glucose Collection Time: 06/18/22 2:38 PM Result Value Ref Range Glucose, POC 264 (H) 70 - 199 mg/dL POCT glucose Collection Time: 06/18/22 4:16 PM Result Value Ref Range Glucose, POC 181 70 - 199 mg/dL POCT glucose Collection Time: 06/18/22 5:11 PM Result Value Ref Range Glucose, POC 168 70 - 199 mg/dL POCT glucose Collection Time: 06/18/22 7:51 PM Result Value Ref Range Glucose, POC 256 (H) 70 - 199 mg/dL CBC with auto differential Collection Time: 06/18/22 10:50 PM Result Value Ref Range WBC 8.4 3.8 - 9.9 K/cumm Hgb 7.5 (L) 13.0 - 17.5 g/dL Hct 23.6 (L) 38.9 - 50.3 % Plt 313 150 - 400 K/cumm MPV 9.8 9.1 - 12.3 fL RBC 2.41 (L) 4.30 - 5.80 M/cumm MCV 97.9 (H) 81.3 - 96.4 fL MCH 31.1 27.1 - 33.3 pg MCHC 31.8 (L) 32.3 - 35.7 g/dL RDW CV 16.5 (H) 11.1 - 14.9 % RDW SD 56.5 (H) 35.7 - 48.1 fL NRBC abs 0.00 0.00 - 0.01 K/cumm Comprehensive metabolic panel Collection Time: 06/18/22 10:50 PM Result Value Ref Range Sodium 140 135 - 145 mmol/L Potassium, pl 4.3 3.3 - 4.9 mmol/L Chloride 103 97 - 110 mmol/L CO2 22 22 - 32 mmol/L Anion gap 15 2 - 15 mmol/L BUN 35 (H) 8 - 25 mg/dL Creatinine 5.01 (H) 0.80 - 1.30 mg/dL Glucose 199 70 - 199 mg/dL Calcium 8.7 8.5 - 10.3 mg/dL Bilirubin, total 0.4 0.1 - 1.2 mg/dL Protein, pl 6.5 6.5 - 8.5 g/dL Albumin 2.8 (L) 3.5 - 5.0 g/dL Alk phos 163 (H) 40 - 130 Units/L ALT 34 7 - 55 Units/L AST 56 (H) 10 - 50 Units/L Magnesium Collection Time: 06/18/22 10:50 PM Result Value Ref Range Magnesium 3.1 (H) 1.4 - 2.5 mg/dL Lipase Collection Time: 06/18/22 10:50 PM Result Value Ref Range Lipase 22 10 - 99 Units/L Beta-hydroxybutyrate Collection Time: 06/18/22 10:50 PM Result Value Ref Range Beta-Hydroxybutyrate 1.3 (H) 0.0 - 0.5 mmol/L Phosphorus Collection Time: 06/18/22 10:50 PM Result Value Ref Range Phosphorus, pl 5.2 (H) 2.3 - 4.5 mg/dL Triglycerides Collection Time: 06/18/22 10:50 PM Result Value Ref Range Triglycerides 226 (H) <=149 mg/dL Lactate Collection Time: 06/18/22 10:50 PM Result Value Ref Range Lactate 1.0 0.7 - 2.0 mmol/L Differential, auto Collection Time: 06/18/22 10:50 PM Result Value Ref Range Neutrophil abs 5.0 1.7 - 6.5 K/cumm Imm gran abs 0.1 0.0 - 0.1 K/cumm Lymphocyte abs 1.7 0.8 - 3.3 K/cumm Monocyte abs 1.3 (H) 0.2 - 0.8 K/cumm Eosinophil abs 0.2 0.0 - 0.5 K/cumm Basophil abs 0.1 0.0 - 0.1 K/cumm Neutrophil pct 60.3 % Imm gran pct 0.7 % Lymphocyte pct 20.4 % Monocyte pct 16.0 % Eosinophil pct 2.0 % Basophil pct 0.6 % Vancomycin level random Collection Time: 06/18/22 10:50 PM Result Value Ref Range Vancomycin random 38.4 mcg/mL eGFR Collection Time: 06/18/22 10:50 PM Result Value Ref Range eGFR 13 (L) 90 - 130 mL/min/1.73 m2 POCT glucose Collection Time: 06/19/22 9:08 AM Result Value Ref Range Glucose, POC 217 (H) 70 - 199 mg/dL CBC with auto differential Collection Time: 06/19/22 9:09 AM Result Value Ref Range WBC 4.9 3.8 - 9.9 K/cumm Hgb 9.9 (L) 13.0 - 17.5 g/dL Hct 31.5 (L) 38.9 - 50.3 % Plt 237 150 - 400 K/cumm MPV 9.9 9.1 - 12.3 fL RBC 3.20 (L) 4.30 - 5.80 M/cumm MCV 98.4 (H) 81.3 - 96.4 fL MCH 30.9 27.1 - 33.3 pg MCHC 31.4 (L) 32.3 - 35.7 g/dL RDW CV 16.4 (H) 11.1 - 14.9 % RDW SD 57.2 (H) 35.7 - 48.1 fL NRBC abs 0.00 0.00 - 0.01 K/cumm Comprehensive metabolic panel Collection Time: 06/19/22 9:09 AM Result Value Ref Range Sodium 137 135 - 145 mmol/L Potassium, pl 4.6 3.3 - 4.9 mmol/L Chloride 101 97 - 110 mmol/L CO2 23 22 - 32 mmol/L Anion gap 13 2 - 15 mmol/L BUN 35 (H) 8 - 25 mg/dL Creatinine 5.02 (H) 0.80 - 1.30 mg/dL Glucose 205 (H) 70 - 199 mg/dL Calcium 8.4 (L) 8.5 - 10.3 mg/dL Bilirubin, total 0.4 0.1 - 1.2 mg/dL Protein, pl 6.1 (L) 6.5 - 8.5 g/dL Albumin 2.9 (L) 3.5 - 5.0 g/dL Alk phos 156 (H) 40 - 130 Units/L ALT 32 7 - 55 Units/L AST 54 (H) 10 - 50 Units/L Magnesium Collection Time: 06/19/22 9:09 AM Result Value Ref Range Magnesium 2.9 (H) 1.4 - 2.5 mg/dL Blood gas, arterial Collection Time: 06/19/22 9:09 AM Result Value Ref Range pH, Art 7.41 7.35 - 7.45 PCO2, Arterial 33 (L) 35 - 45 mmHg PO2, Arterial 87 83 - 108 mmHg HCO3 Art (Calculated) 21 20 - 30 mmol/L BE, art -4 mmol/L O2 Sat Art (Measured) 96 (H) 90 - 95 % Differential, auto Collection Time: 06/19/22 9:09 AM Result Value Ref Range Neutrophil abs 2.8 1.7 - 6.5 K/cumm Imm gran abs 0.0 0.0 - 0.1 K/cumm Lymphocyte abs 1.2 0.8 - 3.3 K/cumm Monocyte abs 0.7 0.2 - 0.8 K/cumm Eosinophil abs 0.1 0.0 - 0.5 K/cumm Basophil abs 0.1 0.0 - 0.1 K/cumm Neutrophil pct 56.1 % Imm gran pct 0.8 % Lymphocyte pct 24.9 % Monocyte pct 14.2 % Eosinophil pct 2.8 % Basophil pct 1.2 % eGFR Collection Time: 06/19/22 9:09 AM Result Value Ref Range eGFR 13 (L) 90 - 130 mL/min/1.73 m2 POCT glucose Collection Time: 06/19/22 1:22 PM Result Value Ref Range Glucose, POC 101 70 - 199 mg/dL I personally reviewed CXR and noted following: small LF but no edema/infiltrates Assessment/Plan Acute hypoxemic respiratory failure (HCC) Assessment & Plan Mr. Garvin is a 51 y/o M with medical [...] agitation as well as tachypnea, which is likelycomplicated by need for PD following clotting of [...] BiPAP liberally; wean Fentanyl further in the marie- extubation period. --Continue IPV to assist with mucous clearance --Continue antibiotics per primary team --Continue to keep as dry as possible I discussed findings with CCU Team/Attending. * Lavern Morrison MD - 06/19/2022 5:22 AM CDT CCU DAILY PROGRESS Patient: Adelia Garvin Jr. Room: [id number] Date: 06/19/2022 Summary Statement: Adelia Garvin Jr. is a 51 y.o. male with a history of CHF (EF 50% 2016), Afib (not on AC), HTN, CAD s/p stent 04/06 and 3 stent 12/07, T1DM (insulin pump at home), ESRD on PD, HLD, GERD, hyperparathyroidism, DDD, OA, gout, BEN on CPAP initially presented to OSH for n/v and chest pain, transferred to [facility] for LHC/PCI, who presented to CCU s/p complex PCI with impella and intubated. SUBJECTIVE Interval: - Right subclavian trialysis catheter placed yesterday by IR - Afib with rvr around 1800, MAPs stable, bolused 150 amio, patient continued in afib with HR 110s,bolused another 150 amio and amio drip started around 2:30am - On CRRT - increased fluid removal from 100 to 200 ml/hr - Started on levo yesterday afternoon (MAPs 40s), currently on levo 0.09 - 17 beats of NSVT at 3:59 am - net negative 2.7 L - febrile to 100.4 this AM - PSV since around 6 am - BHB elevated to 1.3 (from 0.9) Brief Plan Updates: - check ABG, rest on vent, touch base with pulmonology, plant to attempt extubation to NC/BiPAP - f/u PNA PCR/trach aspirate, blood cultures - d/c antibiotics (vanc/kaylah) as WBC normal and NGTD on cultures - order repeat RUQ US - continue amio gtt for 24 hours before switching to PO - restart heparin gtt - increase insulin regimen: glargine 33U, humalog 6U q4h + SSI MEDICATIONS Scheduled Meds: Scheduled Meds:aspirin, 81 mg, feeding tube, Daily atorvastatin, 80 mg, feeding tube, Daily calcitRIOL, 0.25 mcg, feeding tube, Daily [Held by Provider] calcium acetate(phosphat bind), 667 mg, oral, QID chlorhexidine, 15 mL, mouth/throat, BID clopidogreL, 75 mg, feeding tube, Daily docusate, 100 mg, feeding tube, Daily ezetimibe, 10 mg, feeding tube, Daily gentamicin, , topical, Daily insulin glargine, 30 Units, subcutaneous, QAM insulin lispro, 0-10 Units, subcutaneous, Q4H ASHLEY insulin lispro, 5 Units, subcutaneous, Q4H magnesium sulfate, 2 g, intravenous, Once meropenem, 2,000 mg, intravenous, Q12H ASHLEY pantoprazole, 40 mg, intravenous, BID polyethylene glycol, 17 g, feeding tube, BID polyvinyl alcohol-povidone, 1 drop, each eye, QID senna, 8.8 mg, oral, Nightly Continuous Infusions:amiodarone, 150 mg amiodarone, 1 mg/min, Last Rate: 1 mg/min (06/19/22 0500) Followed by amiodarone, 0.5 mg/min dexmedeTOMIDine, 0-1.5 mcg/kg/hr, Last Rate: 0.7 mcg/kg/hr (06/19/22 0500) fentaNYL, 0-400 mcg/hr, Last Rate: 175 mcg/hr (06/19/22 0500) [Held by Provider] heparin, 0-33 Units/kg/hr, Last Rate: Stopped (06/18/22 1400) midazolam, 0-12 mg/hr, Last Rate: Stopped (06/18/22 0749) norepinephrine, 0-2 mcg/kg/min (Dosing Weight), Last Rate: 0.09 mcg/kg/min (06/19/22 0400) NxStage 4-potassium/2.5-calcium, 1,400 mL/hr, Last Rate: 1,400 mL/hr (06/19/22 0213) NxStage 4-potassium/2.5-calcium, 1,400 mL/hr, Last Rate: 1,400 mL/hr (06/19/22 0214) propofol, 0-50 mcg/kg/min, Last Rate: Stopped (06/15/22 1018) sodium chloride 0.9%, 10 mL/hr, Last Rate: 10 mL/hr (06/12/22 0834) sodium chloride 0.9%, 1,000 mL sodium chloride 0.9%, 3-12 mL/hr sodium chloride 0.9%, 3-12 mL/hr, Last Rate: 3 mL/hr (06/19/22 0500) PRN Meds:. acetaminophen albuterol HFA bisacodyL bisacodyl EC dextrose OR dextrose dextrose 5% water dextrose 5% water fentaNYL fentaNYL fluticasone propionate glucagon Dialysis Access Care AND heparin heparin OR heparin lidocaine midazolam ondansetron ODT OR ondansetron phenoL polyethylene glycol ramelteon sodium chloride 0.9% PRN Meds: acetaminophen albuterol HFA bisacodyL bisacodyl EC dextrose OR dextrose dextrose 5% water dextrose 5% water fentaNYL fentaNYL fluticasone propionate glucagon Dialysis Access Care AND heparin heparin OR heparin lidocaine midazolam ondansetron ODT OR ondansetron phenoL polyethylene glycol ramelteon sodium chloride 0.9% OBJECTIVE Vitals: Vitals: 06/19/22 0412 BP: Pulse: 112 Resp: Temp: SpO2: 97% Input and Output: Intake/Output Summary (Last 24 hours) at 06/19/2022 0522 Last data filed at 06/19/2022 0500 Gross per 24 hour Intake 56436.7 ml Output 37498 ml Net -2782.3 ml Ventilator Settings: 20/500/80/12 Physical Exam: General: Intubated. Alert Eyes: Eyes open. PERRL. Sclera nonicteric. ENT: MMM. ETT in place. Trialysis line in L neck. +large L neck hematoma Cardiac: Regular rate and rhythm. Pulm: On ventilator. Soft crackles throughout lung charles GI/Abd: Soft, obese, nondistended, BS positive Lymphatic: No significant LAD Extremities: No peripheral cyanosis. Warm extremities 1+ pitting edema. Skin: No rash or bruises Neuro: PERRL. Patient able to follow simple commands (raise head off pillow, squeeze hand). Moving all extremities. LABORATORY DATA CBC Recent Labs Lab Units 06/18/22 2250 WBC K/cumm 8.4 HEMOGLOBIN g/dL 7.5* HEMATOCRIT % 23.6* PLATELETS K/cumm 313 NEUTROS PCT % 60.3 LYMPHS PCT % 20.4 MONOS PCT % 16.0 EOS PCT % 2.0 Chem Recent Labs Lab Units 06/18/22 2250 SODIUM mmol/L 140 POTASSIUM PLASMA mmol/L 4.3 CHLORIDE mmol/L 103 CO2 mmol/L 22 ANIONGAP mmol/L 15 BUN SERUM mg/dL 35* CREATININE mg/dL 5.01* GLUCOSE mg/dL 199 CALCIUM mg/dL 8.7 LFTs Recent Labs Lab Units 06/18/22 2250 ALK PHOS Units/L 163* BILIRUBIN TOTAL mg/dL 0.4 TOTAL PROTEIN g/dL 6.5 ALT Units/L 34 AST Units/L 56* Coags Recent Labs Lab Units 06/18/22 0513 APTT sec 63* Cardiac Enzymes No results found for: TROPONINT Lab Results Lab Value Date/Time TROPONINI 0.03 03/21/2017 2232 TROPONINI 0.03 03/21/2017 0715 TROPONINI <0.03 11/06/2013 0612 TROPONINI <0.03 11/05/2013 2147 TROPONINI <0.03 11/05/2013 1430 TROPONINI <0.03 11/05/2013 0937 Urine Analysis ABG Recent Labs Lab Units 06/18/22 1014 PH ART 7.36 PCO2 ART mmHg 37 PO2 ART mmHg 74* HCO3 ART (CALC) mmol/L 21 BASE EXC ART mmol/L -4 O2 SAT ART (UYEN) % 94 Screening Labs: Iron Studies Cholesterol Hgb A1C Radiology and Other Diagnostics: XR Chest 1 View Result Date: 06/06/2022 The current study is compared with the prior radiograph dated 06/05/2022 3:14 PM. The cardiomediastinal silhouette is stable. There are persistent diffuse bilateral airspace opacities compatible withmoderate to severe pulmonary edema. The extent of the opacities is similar to slightly increased compared to the prior examination. No definite pleural effusion, though the left costophrenic angle isexcluded. No pneumothorax. Dictated by: Jersey Morales MD The radiology attending physician has personally reviewed this study, and had reviewed and/or edited this written report and agrees with it. Electronically signed by: Saurav Emerson M.D. TTE (06/08/22): SUMMARY: s/p Impella placement across the aortic valve into the LV cavity. HR 48 bpm. Pacer wire in the RA and RV. LV cavity size is moderately dilated Eccentric LV hypertrophy. Mild hypokientsis in anterior wall and anterior septem sugegsting CAD/[place] in the LAD territory. LVEF is in normal range 56%. Impaired LV relaxation. LA is mildly dilated. Mildly dilated RV cavity size with normal RV systolic function. Mildly dilated RA size. Normal Inferior vena cava. Normal aortic root. Mils to mod AR. Trace TR. PASP= 23 mm Hg +RAP. ASSESSMENT and PLAN Adelia Garvin Jr. is a 51 y.o. male with a history of CHF (EF 50% 2016), Afib (not on AC), HTN, CAD s/p stent 04/06 and 3 stent 12/07, T1DM (insulin pump at home), ESRD on PD, HLD, GERD, hyperparathyroidism, DDD, OA, gout, BEN on CPAP initially presented to [facility] for n/v and chest pain, transferred to [facility] for LHC/PCI, who presented to the CCU s/p complex PCI complicated by hypoxemic respiratory failure requiring intubation, impella support, veletri gtt. Active Issues: #Cardiogenic shock #NSTEMI s/p complex PCI #CAD S/p complex PCI to the LCx and OM, impella placed and pt was intubated and transferred to the CCU. Etiology of decompensation likely flash pulmonary edema leading to acute hypoxic respiratory distress. Impella removed and veletri weaned off 06/10/22. TTE following impella removal shows LVEF 65%, though LVSVi 25ml/m2. - IR placed right SC trialysis line 06/18 - CRRT for fluid removal - set at 200 ml/hr fluid removal rate - dapt, atorva, restart heparin gtt - serial lactates #Afib Not on anticoagulation at home. CHADsVasc 4 - holding home metoprolol given cardiogenic shock - s/p amio bolux x2 yesterday, on amio gtt - continue for 24 hours before switching to PO amio - restart heparin ggt #Concern for distributive shock #Leukocytosis - resolved Increasing temperature (T 100.2 on 06/15, white count) concerning for infection. No concerns for cholecystitis, RP bleed on CT noncon c/a/p 06/11, possible VAP vs aspiration. 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 Etiology of respiratory decompensation likely flash pulmonary edema, ARDS also possible. Less likely but also possible PNA. Arrived to CCU on ventilator settings: 34/500/90/15, not requiring pressors. Impella removed 06/10. - 10 days intubated - Continue vent at current settings - patient able to lift head and squeeze hands this AM - PSV'd well this AM - plan to rest on vent and then extubate during the late morning to NC/BiPAP - pulmonary following, recs appreciated #Agitation #Sedation Intubated 06/07. Tolerated PSV on 06/15 for several hours but required re- sedation due to altered mental status. - Versed weaned off; now just on fent and precedex, improved agitation - propofol weaned off on 06/15 due to triglyceridemia; triglycerides now down trending -wean fentanyl and precedex as needed for extubation Remaining issues: CARDIAC #HFrEF TTE (2016): EF 50%. TTE (2021) with bubble study showed moderate concentric LVH with EF 65% and bubble study was positive with valsalva. - holding home hydral/imdur/lasix RENAL #ESRD on PD #Volume overload Presented to CCU in AHRF likely s/t volume overload. - continue CRRT via trialysis placed 06/18 - renal following, recs appreciated - FBG negative with 200 ml/hr fluid removal on CRRT GI #Cholecystitis Patient with CT CAP and RUQ US c/f cholecystitis at OSH. Repeat CT 06/11 without e/o cholecystitis.Has been unable to get HIDA scan due to decompensation. - HIDA scan when stable - gen surg consulted: recommended against surgical procedure or perc cholesystostomy - D/c IV Abx: vanc (06/10-06/19), kaylah (06/05-06/19) - Repeat RUQ US ENDO #T1DM #DKA - resolved Pt has T1DM; has insulin pump at home. Prior to intubation was on lantus 33u qam, humalog 9u tidac,resistant correctional humalog tidac, hs. In CCU, patient with DKA: BG in 300s, AG 21, K 3.3, BHB 2.3, ABG with pCO2 27. Treated with insulin gtt, D5, and K repletion. Labs improved to BG 100s, AG 10, K 4.0, BHB 0.1, pCO2 37. - TF stopped since line placed by IR - BHB elevated to 1.3 from 0.9, AG 15, POC glucose 168 - 376 - increase insulin regimen: glargine 33U, humalog 6U q4h + SSI HEME/ONC #Anemia Hgb 9.5 on admission to [facility] and 7.8 on arrival to CCU. Hgb subsequently measured at 4.3, but actually 7.5 on re-draw. Received consent for blood transfusion if necessary from patient's brother. - transfuse for Hgb <7 - maintain active T&S - CTM H/H Checklist [] Central Line/ PICC: right SC trialysis placed 06/18 [] DVT PPX: heparin gtt [] PUD PPX: IV 40 pantoprazole BID [] Glucose Control: glargine 33U, lispro 6 q4h, SSI q4h [] Weaning/Extubation: on vent, plan to extubate today [] HOB >30 [] Sedation: fentanyl, precedex [] Volume Status: FBG neg [] Medication Reviewed [] Nutrition: NG placed, currently sedated/on vent [] PT/OT: not consulted as patient intubated/sedated [] AM Labs: ordered [] Invasive Devices: none [] External urinary Catheter: placed 06/08 [] Family Updated: called evening 06/07 [] Code Status: Full Code Attending MD to make comment on patient risk/complexity. Lavern Morrison MD Resident Physician, Internal Medicine Cosigned by Rafa Youngblood MD PhD at 06/19/2022 1:07 PM CDT Associated attestation - Rafa Youngblood MD PhD - 06/19/2022 1:07 PM CDT Critical Care Time: I have spent 60 minutes in full attendance with this critically ill patient making frequent reassessments and decisions regarding this patient's complex medical care. Critical care time was exclusive of separately billable procedures, treating other patients and teaching time. Critical care was necessary to treat or prevent imminent or life-threatening deterioration of the following conditions: Acute hypoxemic respiratory failure Complex CAD Cardiogenic shock ESRD, on PD C/F cholecystitis Diabetes mellitus Atrial fibrillation HISTORY No acute events overnight. Tolerated PSV today. Trial of extubation DIAGNOSTIC REVIEW Blood pressure 146/57, pulse 110, temperature 37.7 ??C (99.9 ??F), temperature source Esophageal, resp. rate 16, height 177.8 cm (5' 10 ), weight 125 kg (275 lb 9.2 oz), SpO2 99 %. I have reviewed the pertinent laboratory test results, including: -Hgb 7.5, Cr 5.01, LA 1.0 -Net output neg 2.7L -CXR personally reviewed: low lung volumes ASSESSMENT AND PLAN: 1) ESRD -Tolerating IHD with fluid removal 2) Acute hypoxic respiratory failure -S/P successful PSV (RSBI 68 this AM with acceptable gas) 3) CAD -Cotninue medical management 4) C/F cholecystitis -S/P long course of abx; fevers possibly drug reaction / central -DC Abx today and trend fever curves -Repeat RUQ US 5) Afib -Restart heparin -Amio gtt x 24 hrs, then re-evaluate 6) DM -Increase basal / bolus insulin regimen Attending Documentation: I have seen and examined this patient on the day of service. I have reviewed and confirmed the history, physical exam, laboratory and radiographic data with the house staff as documented in the ICU resident note. I have reviewed and discussed my treatment plan with the ICU team and other medical/investigations consultant staff. * Jeffrey Green MD - 06/18/2022 6:17 AM CDT CCU DAILY PROGRESS Patient: Adelia Garvin Jr. Room: [place] [address]/[place] [id number] Date: 06/18/2022 Summary Statement: Adelia Garvin Jr. is a 51 y.o. male with a history of CHF (EF 50% 2016), Afib (not on AC), HTN, CAD s/p stent 04/06 and 3 stent 12/07, T1DM (insulin pump at home), ESRD on PD, HLD, GERD, hyperparathyroidism, DDD, OA, gout, BEN on CPAP initially presented to [facility]SH for n/v and chest pain, transferred to [facility] for LHC/PCI, who presented to CCU s/p complex PCI with impella and intubated. SUBJECTIVE Interval: - Unable to place trialysis yesterday, received PD overnight - hgb 6.2, rechecked --> 7.9, did not transfuse - Weaned of levo gtt - Versed weaned off - Afib with rvr around 1800, MAPs stable, bolused 150 amio Brief Plan Updates: - IR for trialysis catheter for CRRT - Continue insulin gtt while on PD - PSV - pending tracheal aspirate cx, blood cultures - continue vanc/kaylah - discontinue asa once extubated / respiratory status is stable MEDICATIONS Scheduled Meds: Scheduled Meds:aspirin, 81 mg, feeding tube, Daily atorvastatin, 80 mg, feeding tube, Daily calcitRIOL, 0.25 mcg, feeding tube, Daily [Held by Provider] calcium acetate(phosphat bind), 667 mg, oral, QID chlorhexidine, 15 mL, mouth/throat, BID [Held by Provider] cloNIDine, 0.1 mg, oral, BID clopidogreL, 75 mg, feeding tube, Daily docusate, 100 mg, feeding tube, Daily ezetimibe, 10 mg, feeding tube, Daily gentamicin, , topical, Daily [Held by Provider] insulin glargine, 40 Units, subcutaneous, QAM [Held by Provider] insulin lispro, 0-10 Units, subcutaneous, Q4H ASHLEY [Held by Provider] insulin lispro, 10 Units, subcutaneous, Q4H [Held by Provider] insulin NPH, 15 Units, subcutaneous, Nightly meropenem, 1,000 mg, intravenous, Q24H [Held by Provider] nystatin, 500,000 Units, swish & spit, QID pantoprazole, 40 mg, intravenous, BID polyethylene glycol, 17 g, feeding tube, BID polyvinyl alcohol-povidone, 1 drop, each eye, QID senna, 8.8 mg, oral, Nightly Continuous Infusions:dexmedeTOMIDine, 0-1.5 mcg/kg/hr, Last Rate: 0.3 mcg/kg/hr (06/18/22 0500) insulin regular, 0-30 Units/hr, Last Rate: 6 Units/hr (06/18/22 0552) And dextrose 5%, 40 mL/hr peritoneal fluid with or without additives for CCPD, peritoneal fluid with or without additives for CCPD, peritoneal fluid with or without additives for CCPD, fentaNYL, 0-400 mcg/hr, Last Rate: 175 mcg/hr (06/18/22 0500) [Held by Provider] heparin, 0-33 Units/kg/hr, Last Rate: 10.5 Units/kg/hr (06/18/22 0554) midazolam, 0-12 mg/hr, Last Rate: 2.5 mg/hr (06/18/22 0500) norepinephrine, 0-2 mcg/kg/min (Dosing Weight), Last Rate: 0.0001 mcg/kg/min (06/18/22 0552) propofol, 0-50 mcg/kg/min, Last Rate: Stopped (06/15/22 1018) sodium chloride 0.9%, 10 mL/hr, Last Rate: 10 mL/hr (06/12/22 0834) sodium chloride 0.9%, 3-12 mL/hr sodium chloride 0.9%, 3-12 mL/hr, Last Rate: 3 mL/hr (06/18/22 0500) PRN Meds:. acetaminophen albuterol HFA bisacodyL bisacodyl EC dextrose OR dextrose Nursing communication - ICU Insulin Infusion AND insulin regular AND insulin regular AND insulin regular AND dextrose 5% AND POCT glucose AND POCT glucose dextrose 5% water dextrose 5% water fentaNYL fentaNYL fluticasone propionate glucagon heparin OR heparin lidocaine midazolam ondansetron ODT OR ondansetron phenoL polyethylene glycol ramelteon PRN Meds: acetaminophen albuterol HFA bisacodyL bisacodyl EC dextrose OR dextrose Nursing communication - ICU Insulin Infusion AND insulin regular AND insulin regular AND insulin regular AND dextrose 5% AND POCT glucose AND POCT glucose dextrose 5% water dextrose 5% water fentaNYL fentaNYL fluticasone propionate glucagon heparin OR heparin lidocaine midazolam ondansetron ODT OR ondansetron phenoL polyethylene glycol ramelteon OBJECTIVE Vitals: Vitals: 06/18/22 0500 BP: Pulse: 105 Resp: 22 Temp: 37.8 ??C (100 ??F) SpO2: 95% Input and Output: Intake/Output Summary (Last 24 hours) at 06/18/2022 0617 Last data filed at 06/18/2022 0500 Gross per 24 hour Intake 03886.41 ml Output 73145 ml Net 897.41 ml Ventilator Settings: 20/500/80/12 Physical Exam: General: Intubated and sedated Eyes: PERRL. Sclera nonicteric. ENT: MMM. ETT in place. Trialysis line in L neck. +large L neck hematoma Cardiac: Regular rate and rhythm. Pulm: On ventilator. Soft crackles throughout lung charles GI/Abd: Soft, obese, nondistended, BS positive Lymphatic: No significant LAD Extremities: No peripheral cyanosis. Warm extremities 1+ pitting edema. Skin: No rash or bruises Neuro: Sedated on ventilator. PERRL. LABORATORY DATA CBC Recent Labs Lab Units 06/17/22223006/17/222116 WBC K/cumm -- 7.7 HEMOGLOBIN g/dL 7.9* 6.2* HEMATOCRIT % 24.0* 19.1* PLATELETS K/cumm -- 300 NEUTROS PCT % -- 58.5 LYMPHS PCT % -- 19.0 MONOS PCT % -- 17.6 EOS PCT % -- 3.5 Chem Recent Labs Lab Units 06/18/22 0506/17/[id number] SODIUM mmol/L -- -- 142 POTASSIUM PLASMA mmol/L -- -- 3.2* CHLORIDE mmol/L -- -- 104 CO2 mmol/L -- -- 23 ANIONGAP mmol/L -- -- 15 BUN SERUM mg/dL -- -- 41* CREATININE mg/dL -- -- 5.65* GLUCOSE mg/dL -- -- 121 POC GLUCOSE MONITOR mg/dL 205* < > -- CALCIUM mg/dL -- -- 9.3 < > = values in this interval not displayed. LFTs Recent Labs Lab Units 06/17/222116 ALK PHOS Units/L 181* BILIRUBIN TOTAL mg/dL 0.4 TOTAL PROTEIN g/dL 6.4* ALT Units/L 33 AST Units/L 52* Coags Recent Labs Lab Units 06/18/22 0513 06/12/22 0152 06/11/22 1521 APTT sec 63* < > 30 INR -- -- 1.0 < > = values in this interval not displayed. Cardiac Enzymes No results found for: TROPONINT Lab Results Lab Value Date/Time TROPONINI 0.03 03/21/20172231 TROPONINI 0.03 03/21/2017 0715 TROPONINI <0.03 11/06/2013 0612 TROPONINI <0.03 11/05/2013 2147 TROPONINI <0.03 11/05/2013 1430 TROPONINI <0.03 11/05/2013 0937 Urine Analysis ABG Recent Labs Lab Units 06/18/22 05 PH ART 7.33* PCO2 ART mmHg 39 PO2 ART mmHg 92 HCO3 ART (CALC) mmol/L 21 BASE EXC ART mmol/L -5 O2 SAT ART (UYEN) % 96* Screening Labs: Iron Studies Cholesterol Hgb A1C Radiology and Other Diagnostics: XR Chest 1 View Result Date: 06/06/2022 The current study is compared with the prior radiograph dated 06/05/2022 3:14 PM. The cardiomediastinal silhouette is stable. There are persistent diffuse bilateral airspace opacities compatible withmoderate to severe pulmonary edema. The extent of the opacities is similar to slightly increased compared to the prior examination. No definite pleural effusion, though the left costophrenic angle isexcluded. No pneumothorax. Dictated by: Jersey Morales MD The radiology attending physician has personally reviewed this study, and had reviewed and/or edited this written report and agrees with it. Electronically signed by: Saurav Emerson M.D. TTE (06/08/22): SUMMARY: s/p Impella placement across the aortic valve into the LV cavity. HR 48 bpm. Pacer wire in the RA and RV. LV cavity size is moderately dilated Eccentric LV hypertrophy. Mild hypokientsis in anterior wall and anterior septem sugegsting CAD/[place] in the LAD territory. LVEF is in normal range 56%. Impaired LV relaxation. LA is mildly dilated. Mildly dilated RV cavity size with normal RV systolic function. Mildly dilated RA size. Normal Inferior vena cava. Normal aortic root. Mils to mod AR. Trace TR. PASP= 23 mm Hg +RAP. ASSESSMENT and PLAN Adelia Garvin Jr. is a 51 y.o. male with a history of CHF (EF 50% 2016), Afib (not on AC), HTN, CAD s/p stent 04/06 and 3 stent 12/07, T1DM (insulin pump at home), ESRD on PD, HLD, GERD, hyperparathyroidism, DDD, OA, gout, BEN on CPAP initially presented to [facility] for n/v and chest pain, transferred to [facility] for LHC/PCI, who presented to the CCU s/p complex PCI complicated by hypoxemic respiratory failure requiring intubation, impella support, veletri gtt. Active Issues: #Cardiogenic shock #NSTEMI s/p complex PCI #CAD S/p complex PCI to the LCx and OM, impella placed and pt was intubated and transferred to the CCU. Etiology of decompensation likely flash pulmonary edema leading to acute hypoxic respiratory distress. Impella removed and veletri weaned off 06/10/22. TTE following impella removal shows LVEF 65%, though LVSVi 25ml/m2. - IR placed trialysis line - CRRT tonight for fluid removal - heparin ggt, dapt, atorva --> d/c aspirin and replace heparin with DOAC once extubated - serial lactates #Concern for distributive shock #Leukocytosis Increasing temperature (T 100.2 on 06/15, white count) concerning for infection. No concerns for cholecystitis, RP bleed on CT noncon c/a/p 06/11, possible VAP vs aspiration. - pending tracheal aspirate cx, blood cx, c. 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 Etiology of respiratory decompensation likely flash pulmonary edema, ARDS also possible. Less likely but also possible PNA. Arrived to CCU on ventilator settings: 34/500/90/15, not requiring pressors. Impella removed 06/10. - Continue vent at current settings - PSV trial tomorrow - family discussions about possible trach (9d intuabted) - pulmonary following, recs appreciated #Agitation #Sedation Intubated 06/07. Tolerated PSV on 06/15 for several hours but required re- sedation due to altered mental status. - Versed weaned off; now just on fent and precedex, improved agitation - propofol weaned off on 06/15 due to triglyceridemia; triglycerides now down trending Remaining issues: CARDIAC #HFrEF TTE (2016): EF 50%. TTE (2021) with bubble study showed moderate concentric LVH with EF 65% and bubble study was positive with valsalva. - holding home hydral/imdur/lasix #Afib Not on anticoagulation at home. CHADsVasc 4 - holding home metoprolol given cardiogenic shock - heparin ggt RENAL #ESRD on PD #Volume overload Presented to CCU in AHRF likely s/t volume overload. - continue CRRT via trialysis placed 06/18 - renal following, recs appreciated GI #Cholecystitis Patient with CT CAP and RUQ US c/f cholecystitis at OSH. Repeat CT 06/11 without e/o cholecystitis.Has been unable to get HIDA scan due to decompensation. - HIDA scan when stable - continue IV Abx: meropenem, vanc - gen surg consulted: recommended against surgical procedure or perc cholesystostomy ENDO #T1DM #DKA - resolved Pt has T1DM; has insulin pump at home. Prior to intubation was on lantus 33u qam, humalog 9u tidac,resistant correctional humalog tidac, hs. In CCU, patient with DKA: BG in 300s, AG 21, K 3.3, BHB 2.3, ABG with pCO2 27. Treated with insulin gtt, D5, and K repletion. Labs improved to BG 100s, AG 10, K 4.0, BHB 0.1, pCO2 37. - insulin gtt discontinued, transitioned to lantus 33, lispro 5 q4h, HDSSI - continue TF at 45/hr, appreciate endo recs HEME/ONC #Anemia Hgb 9.5 on admission to [facility] and 7.8 on arrival to CCU. Hgb subsequently measured at 4.3, but actually 7.5 on re-draw. Received consent for blood transfusion if necessary from patient's brother. - transfuse for Hgb <7 - maintain active T&S - CTM H/H Checklist [] Central Line/ PICC: PAC, trialysis [] DVT PPX: heparin gtt [] PUD PPX: IV 40 pantoprazole BID [] Glucose Control: glargine 33U, lispro 5 q4h, SSI q4h [] Weaning/Extubation: on vent, wean as able [] HOB >30 [] Sedation: fentanyl, propofol [] Volume Status: FBG neg [] Medication Reviewed [] Nutrition: NG placed, currently sedated/on vent [] PT/OT: not consulted as patient intubated/sedated [] AM Labs: ordered [] Invasive Devices: none [] External urinary Catheter: placed 06/08 [] Family Updated: called evening 06/07 [] Code Status: Full Code Attending MD to make comment on patient risk/complexity. Jeffrey Green MD Resident Physician, Internal Medicine Cosigned by Rafa Youngblood MD PhD at 06/18/2022 10:43 PM CDT Associated attestation - Rafa Youngblood MD PhD - 06/18/2022 10:43 PM CDT Critical Care Time: I have spent 60 minutes in full attendance with this critically ill patient making frequent reassessments and decisions regarding this patient's complex medical care. Critical care time was exclusive of separately billable procedures, treating other patients and teaching time. Critical care was necessary to treat or prevent imminent or life-threatening deterioration of the following conditions: Acute hypoxemic respiratory failure Complex CAD Cardiogenic shock ESRD, on PD C/F cholecystitis HISTORY No acute events overnight. Much more awake interactive today. Doing well on PSV. DIAGNOSTIC REVIEW Blood pressure 146/57, pulse 102, temperature 36 ??C (96.8 ??F), temperature source Esophageal, resp. rate 20, height 177.8 cm (5' 10 ), weight 131.1 kg (289 lb), SpO2 98 %. I have reviewed the pertinent laboratory test results, including: -Hgb 7.9, Cr 5.65 -CXR personally reviewed: small lung volumes, and bibasilar atelectasis ASSESSMENT AND PLAN: 1) ESRD on PD -Appreciate IR assistance with subclavian HD line for IHD to help with fluid removal. Appreciate renal assistance. 2) Acute hypoxic respiratory failure -Appreciate pulm assistance -Plan to PSV again tomorrow after net negative fluid removal, and plan for trial of extubation to BiPap 3) CAD -Cotninue medical management 4) C/F cholecystitis -Continue antibiotics for now Attending Documentation: I have seen and examined this patient on the day of service. I have reviewed and confirmed the history, physical exam, laboratory and radiographic data with the house staff as documented in the ICU resident note. I have reviewed and discussed my treatment plan with the ICU team and other medical/investigations consultant staff. * Jeffrey Green MD - 06/17/2022 6:39 AM CDT CCU DAILY PROGRESS Patient: Adelia Garvin Jr. Room: [place] [id number] Date: 06/17/2022 Summary Statement: Adelia Garvin Jr. is a 51 y.o. male with a history of CHF (EF 50% 2016), Afib (not on AC), HTN, CAD s/p stent 04/06 and 3 stent 12/07, T1DM (insulin pump at home), ESRD on PD, HLD, GERD, hyperparathyroidism, DDD, OA, gout, BEN on CPAP initially presented to OSH for n/v and chest pain, transferred to [facility] for LHC/PCI, who presented to CCU s/p complex PCI with impella and intubated. SUBJECTIVE Interval: - PEEP at 8, FiO2 decreased to 50% overnight - Febrile overnight, maps low to 50s, low dose levo 0.05 --> weaned off during the day - Requiring versed pushes overnight for agitation - Attempted L IJ trialysis but unsuccessful, L fem trialysis line also unsuccessful Brief Plan Updates: - continue volume removal with peritoneal dialysis - Continue insulin gtt while on PD - Attempt to wean sedation overnight, prioritize versed wean - pending tracheal aspirate cx, blood cultures - continue vanc/kaylah - discontinue asa once extubated / respiratory status is stable - begin discussions with family (ronny - brother) about possible trach MEDICATIONS Scheduled Meds: Scheduled Meds:aspirin, 81 mg, feeding tube, Daily atorvastatin, 80 mg, feeding tube, Daily calcitRIOL, 0.25 mcg, feeding tube, Daily [Held by Provider] calcium acetate(phosphat bind), 667 mg, oral, QID chlorhexidine, 15 mL, mouth/throat, BID [Held by Provider] cloNIDine, 0.1 mg, oral, BID clopidogreL, 75 mg, feeding tube, Daily docusate, 100 mg, feeding tube, Daily ezetimibe, 10 mg, feeding tube, Daily gentamicin, , topical, Daily [Held by Provider] insulin glargine, 40 Units, subcutaneous, QAM [Held by Provider] insulin lispro, 0-10 Units, subcutaneous, Q4H ASHLEY [Held by Provider] insulin lispro, 10 Units, subcutaneous, Q4H [Held by Provider] insulin NPH, 15 Units, subcutaneous, Nightly meropenem, 1,000 mg, intravenous, Q24H [Held by Provider] nystatin, 500,000 Units, swish & spit, QID pantoprazole, 40 mg, intravenous, BID polyethylene glycol, 17 g, feeding tube, BID polyvinyl alcohol-povidone, 1 drop, each eye, QID senna, 8.8 mg, oral, Nightly vancomycin, 1,750 mg, intravenous, Q24H Continuous Infusions:dexmedeTOMIDine, 0-1.5 mcg/kg/hr, Last Rate: 0.7 mcg/kg/hr (06/17/22 0531) insulin regular, 0-30 Units/hr, Last Rate: 4.5 Units/hr (06/17/22 0632) And dextrose 5%, 40 mL/hr peritoneal fluid with or without additives for CCPD, peritoneal fluid with or without additives for CCPD, peritoneal fluid with or without additives for CCPD, peritoneal fluid with or without additives for CCPD, fentaNYL, 0-400 mcg/hr, Last Rate: 200 mcg/hr (06/16/22 2315) heparin, 0-33 Units/kg/hr, Last Rate: 10.5 Units/kg/hr (06/17/22 0111) midazolam, 0-12 mg/hr, Last Rate: 4.5 mg/hr (06/17/22 0528) norepinephrine, 0-2 mcg/kg/min (Dosing Weight), Last Rate: 0.05 mcg/kg/min (06/15/22 1150) propofol, 0-50 mcg/kg/min, Last Rate: Stopped (06/15/22 1018) sodium chloride 0.9%, 10 mL/hr, Last Rate: 10 mL/hr (06/12/22 0834) sodium chloride 0.9%, 3-12 mL/hr sodium chloride 0.9%, 3-12 mL/hr, Last Rate: 3 mL/hr (06/16/22 1900) PRN Meds:. acetaminophen albuterol HFA bisacodyL bisacodyl EC dextrose OR dextrose Nursing communication - ICU Insulin Infusion AND insulin regular AND insulin regular AND insulin regular AND dextrose 5% AND POCT glucose AND POCT glucose dextrose 5% water dextrose 5% water fentaNYL fentaNYL fluticasone propionate glucagon heparin OR heparin lidocaine midazolam ondansetron ODT OR ondansetron phenoL polyethylene glycol ramelteon PRN Meds: acetaminophen albuterol HFA bisacodyL bisacodyl EC dextrose OR dextrose Nursing communication - ICU Insulin Infusion AND insulin regular AND insulin regular AND insulin regular AND dextrose 5% AND POCT glucose AND POCT glucose dextrose 5% water dextrose 5% water fentaNYL fentaNYL fluticasone propionate glucagon heparin OR heparin lidocaine midazolam ondansetron ODT OR ondansetron phenoL polyethylene glycol ramelteon OBJECTIVE Vitals: Vitals: 06/17/22 0346 BP: Pulse: 87 Resp: Temp: SpO2: 96% Input and Output: Intake/Output Summary (Last 24 hours) at 06/17/2022 0639 Last data filed at 06/16/2022 2300 Gross per 24 hour Intake 1534.97 ml Output 0 ml Net 1534.97 ml Ventilator Settings: 20/500/80/12 Physical Exam: General: Intubated and sedated Eyes: PERRL. Sclera nonicteric. ENT: MMM. ETT in place. Trialysis line in L neck. +large L neck hematoma Cardiac: Regular rate and rhythm. Pulm: On ventilator. Soft crackles throughout lung charles GI/Abd: Soft, obese, nondistended, BS positive Lymphatic: No significant LAD Extremities: No peripheral cyanosis. Warm extremities 1+ pitting edema. Skin: No rash or bruises Neuro: Sedated on ventilator. PERRL. LABORATORY DATA CBC Recent Labs Lab Units 06/16/222051 WBC K/cumm 7.9 HEMOGLOBIN g/dL 7.4* HEMATOCRIT % 22.8* PLATELETS K/cumm 214 NEUTROS PCT % 68.6 LYMPHS PCT % 12.9 MONOS PCT % 14.3 EOS PCT % 1.9 Chem Recent Labs Lab Units 06/17/22 0613 06/16/22220606/16/222051 SODIUM mmol/L -- -- 140 POTASSIUM PLASMA mmol/L -- -- 4.0 CHLORIDE mmol/L -- -- 104 CO2 mmol/L -- -- 25 ANIONGAP mmol/L -- -- 11 BUN SERUM mg/dL -- -- 36* CREATININE mg/dL -- -- 4.65* GLUCOSE mg/dL -- -- 197 POC GLUCOSE MONITOR mg/dL 234* < > -- CALCIUM mg/dL -- -- 9.3 < > = values in this interval not displayed. LFTs Recent Labs Lab Units 06/16/22 2052 ALK PHOS Units/L 197* BILIRUBIN TOTAL mg/dL 0.4 TOTAL PROTEIN g/dL 6.5 ALT Units/L 35 AST Units/L 36 Coags Recent Labs Lab Units 06/17/22 0036 06/12/22 0152 06/11/22 1521 APTT sec 67* < > 30 INR -- -- 1.0 < > = values in this interval not displayed. Cardiac Enzymes No results found for: TROPONINT Lab Results Lab Value Date/Time TROPONINI 0.03 03/21/2017 2232 TROPONINI 0.03 03/21/2017 0715 TROPONINI <0.03 11/06/2013 0612 TROPONINI <0.03 11/05/2013 2147 TROPONINI <0.03 11/05/2013 1430 TROPONINI <0.03 11/05/2013 0937 Urine Analysis ABG Recent Labs Lab Units 06/17/22 0346 PH ART 7.32* PCO2 ART mmHg 44 PO2 ART mmHg 93 HCO3 ART (CALC) mmol/L 24 BASE EXC ART mmol/L -3 O2 SAT ART (UYEN) % 96* Screening Labs: Iron Studies Cholesterol Hgb A1C Radiology and Other Diagnostics: XR Chest 1 View Result Date: 06/06/2022 The current study is compared with the prior radiograph dated 06/05/2022 3:14 PM. The cardiomediastinal silhouette is stable. There are persistent diffuse bilateral airspace opacities compatible withmoderate to severe pulmonary edema. The extent of the opacities is similar to slightly increased compared to the prior examination. No definite pleural effusion, though the left costophrenic angle isexcluded. No pneumothorax. Dictated by: Jersey Morales MD The radiology attending physician has personally reviewed this study, and had reviewed and/or edited this written report and agrees with it. Electronically signed by: Saurav Emerson M.D. TTE (06/08/22): SUMMARY: s/p Impella placement across the aortic valve into the LV cavity. HR 48 bpm. Pacer wire in the RA and RV. LV cavity size is moderately dilated Eccentric LV hypertrophy. Mild hypokientsis in anterior wall and anterior septem sugegsting CAD/NY in the LAD territory. LVEF is in normal range 56%. Impaired LV relaxation. LA is mildly dilated. Mildly dilated RV cavity size with normal RV systolic function. Mildly dilated RA size. Normal Inferior vena cava. Normal aortic root. Mils to mod AR. Trace TR. PASP= 23 mm Hg +RAP. ASSESSMENT and PLAN Adelia Garvin Jr. is a 51 y.o. male with a history of CHF (EF 50% 2017), Afib (not on AC), HTN, CAD s/p stent 04/06 and 3 stent 12/07, T1DM (insulin pump at home), ESRD on PD, HLD, GERD, hyperparathyroidism, DDD, OA, gout, BEN on CPAP initially presented to [facility] for n/v and chest pain, transferred to [facility] for LHC/PCI, who presented to the CCU s/p complex PCI complicated by hypoxemic respiratory failure requiring intubation, impella support, veletri gtt. Active Issues: #Cardiogenic shock #NSTEMI s/p complex PCI #CAD S/p complex PCI to the LCx and OM, impella placed and pt was intubated and transferred to the CCU. Etiology of decompensation likely flash pulmonary edema leading to acute hypoxic respiratory distress. Impella removed and veletri weaned off 06/10/22. TTE following impella removal shows LVEF 65%, though LVSVi 25ml/m2. - continue PD for fluid removal - heparin ggt, dapt, atorva --> d/c aspirin and replace heparin with DOAC once extubated - serial lactates #Concern for distributive shock #Leukocytosis Increasing temperature (T 100.2 on 06/15, white count) concerning for infection. No concerns for cholecystitis, RP bleed on CT noncon c/a/p 06/11, possible VAP vs aspiration. - pending tracheal aspirate cx, blood cx, c. 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 Etiology of respiratory decompensation likely flash pulmonary edema, ARDS also possible. Less likely but also possible PNA. Arrived to CCU on ventilator settings: 34/500/90/15, not requiring pressors. Impella removed 06/10. - Continue vent at current settings - PSV trial tomorrow - family discussions about possible trach (9d intuabted) - pulmonary following, recs appreciated #Agitation #Sedation Intubated 06/07. Tolerated PSV on 06/15 for several hours but required re- sedation due to altered mental status. - weaning versed as tolerated - propofol weaned off on 06/15 due to triglyceridemia; triglycerides now down trending Remaining issues: CARDIAC #HFrEF TTE (2016): EF 50%. TTE (2021) with bubble study showed moderate concentric LVH with EF 65% and bubble study was positive with valsalva. - holding home hydral/imdur/lasix #Afib Not on anticoagulation at home. CHADsVasc 4 - holding home metoprolol given cardiogenic shock - heparin ggt RENAL #ESRD on PD #Volume overload Presented to CCU in AHRF likely s/t volume overload. - continue PD - removed trialysis line 06/16 overnight - renal following, recs appreciated GI #Cholecystitis Patient with CT CAP and RUQ US c/f cholecystitis at OSH. Repeat CT 06/11 without e/o cholecystitis.Has been unable to get HIDA scan due to decompensation. - HIDA scan when stable - continue IV Abx: meropenem, vanc - gen surg consulted: recommended against surgical procedure or perc cholesystostomy ENDO #T1DM #DKA - resolved Pt has T1DM; has insulin pump at home. Prior to intubation was on lantus 33u qam, humalog 9u tidac,resistant correctional humalog tidac, hs. In CCU, patient with DKA: BG in 300s, AG 21, K 3.3, BHB 2.3, ABG with pCO2 27. Treated with insulin gtt, D5, and K repletion. Labs improved to BG 100s, AG 10, K 4.0, BHB 0.1, pCO2 37. - glucose increased with PD -- tbw nephrology/endocrine about insulin requirements - insulin gtt - continue TF at 45/hr, appreciate endo recs HEME/ONC #Anemia Hgb 9.5 on admission to [facility] and 7.8 on arrival to CCU. Hgb subsequently measured at 4.3, but actually 7.5 on re-draw. Received consent for blood transfusion if necessary from patient's brother. - transfuse for Hgb <7 - maintain active T&S - CTM H/H Checklist [] Central Line/ PICC: PAC, trialysis [] DVT PPX: heparin gtt [] PUD PPX: IV 40 pantoprazole BID [] Glucose Control: glargine 33U, lispro 5 q4h, SSI q4h [] Weaning/Extubation: on vent, wean as able [] HOB >30 [] Sedation: fentanyl, propofol [] Volume Status: FBG neg [] Medication Reviewed [] Nutrition: NG placed, currently sedated/on vent [] PT/OT: not consulted as patient intubated/sedated [] AM Labs: ordered [] Invasive Devices: none [] External urinary Catheter: placed 06/08 [] Family Updated: called evening 06/07 [] Code Status: Full Code Attending MD to make comment on patient risk/complexity. Jeffrey Green MD Resident Physician, Internal Medicine Cosigned by Rufino Flores MD at 06/20/2022 9:33 AM CDT Associated attestation - Rufino Flores MD - 06/20/2022 9:33 AM CDT Critical Care Time: I have spent 35 minutes in full attendance with this critically ill patient making frequent reassessments and decisions regarding this patient's complex medical care. Critical care time was exclusive of separately billable procedures, treating other patients and teaching time. Critical care was necessary to treat or prevent imminent or life-threatening deterioration of the following conditions: Cardiogenic shock Acute hypoxemic respiratory failure Recommendations for treatment include: 1) Mixed cardiogenic/distributive shock. - Degree of decompensation out of proportion to cardiac etiology - Repeat TTE following impella removal shows LVEF 65%, though LVSVi 25ml/m2 Concern for mixed shock, likely a distributive/septic component from possible cholecystitis vs pneumonia (both suspected on initial CT imaging) vs line infection vs aspiration PNA - Trach aspirate / blood cultures NGTD, Cdiff negative; abdominal CT without worsening abdominal pathology; broadened antibiotics - Continue supportive care - Serial lactates, surrogates of perfusion 2) Acute hypoxemic respiratory failure - Patient is net negative several L and has a slowly improving oxygen requirement. Pulmonology feltthis was not consistent with ARDS but just pulmonary edema. - Continue volume removal with CVVHD - Decrease PEEP as tolerated, goal to decrease by 2.5 per day, if tolerated - On Vanc/Kaylah; hold if afebrile >48 hours - Discuss further ventilator optimizations given rising FiO2 3) Agitation - Precedex, fentanyl/versed combination - Current barrier to successful extubation 4) CAD/Afib - DAPT and systemic AC - Hep gtt - Preference for at least 7 days of triple therapy, followed by DOAC +P2Y12 therapy if possible to decrease bleeding risk Attending Documentation: I have seen and examined this patient on the day of service. I have reviewed and confirmed the history, physical exam, laboratory and radiographic data with the house staff as documented in the ICU resident note. I have reviewed and discussed my treatment plan with the ICU team and other medical/investigations consultant staff. * Tyra De La Torre MD - 06/16/2022 5:49 AM CDT CCU DAILY PROGRESS Patient: Adelia Garvin Jr. Room: [id number] Date: 06/16/2022 Summary Statement: Adelia Garvin Jr. is a 51 y.o. male with a history of CHF (EF 50% 2016), Afib (not on AC), HTN, CAD s/p stent 04/06 and 3 stent 12/07, T1DM (insulin pump at home), ESRD on PD, HLD, GERD, hyperparathyroidism, DDD, OA, gout, BEN on CPAP initially presented to [facility] for n/v and chest pain, transferred to [facility] for LHC/PCI, who presented to CCU s/p complex PCI with impella and intubated. SUBJECTIVE Interval: - PSV for several hours yesterday, limited by mental status - PEEP at 8, FiO2 increased to 50% overnight - off propofol; triglycerides decreased to 227 (from 482) - started peritoneal dialysis, pulled trialysis line - glucose to 400s with peritoneal dialysis Brief Plan Updates: - continue volume removal with peritoneal dialysis - tbw nephrology and endocrine about insulin recs with PD - decrease FiO2, PEEP as tolerated by ABG/SpO2 & consider repeat PSV trial - pending tracheal aspirate cx, blood cultures - continue vanc/kaylah - discontinue asa once extubated / respiratory status is stable - begin discussions with family (ronny - brother) about possible trach as this is 9d intubated MEDICATIONS Scheduled Meds: Scheduled Meds:aspirin, 81 mg, feeding tube, Daily atorvastatin, 80 mg, feeding tube, Daily calcitRIOL, 0.25 mcg, feeding tube, Daily [Held by Provider] calcium acetate(phosphat bind), 667 mg, oral, QID chlorhexidine, 15 mL, mouth/throat, BID [Held by Provider] cloNIDine, 0.1 mg, oral, BID clopidogreL, 75 mg, feeding tube, Daily docusate, 100 mg, feeding tube, Daily ezetimibe, 10 mg, feeding tube, Daily gentamicin, , topical, Daily insulin glargine, 33 Units, subcutaneous, QAM insulin lispro, 0-10 Units, subcutaneous, Q4H ASHLEY insulin lispro, 7 Units, subcutaneous, Q4H meropenem, 1,000 mg, intravenous, Q12H ASHLEY [Held by Provider] nystatin, 500,000 Units, swish & spit, QID pantoprazole, 40 mg, intravenous, BID polyethylene glycol, 17 g, feeding tube, BID senna, 8.8 mg, oral, Nightly vancomycin, 1,750 mg, intravenous, Q24H Continuous Infusions:dexmedeTOMIDine, 0-1.5 mcg/kg/hr, Last Rate: 1.3 mcg/kg/hr (06/16/22 0532) peritoneal fluid with or without additives for CCPD, peritoneal fluid with or without additives for CCPD, peritoneal fluid with or without additives for CCPD, peritoneal fluid with or without additives for CCPD, fentaNYL, 0-400 mcg/hr, Last Rate: 200 mcg/hr (06/16/22 0155) heparin, 0-33 Units/kg/hr, Last Rate: 8.5 Units/kg/hr (06/16/22 0500) norepinephrine, 0-2 mcg/kg/min (Dosing Weight), Last Rate: 0.05 mcg/kg/min (06/15/22 1150) propofol, 0-50 mcg/kg/min, Last Rate: Stopped (06/15/22 1018) sodium chloride 0.9%, 10 mL/hr, Last Rate: 10 mL/hr (06/12/22 0834) sodium chloride 0.9%, 3-12 mL/hr sodium chloride 0.9%, 3-12 mL/hr, Last Rate: 3 mL/hr (06/15/22 1700) PRN Meds:. acetaminophen albuterol HFA bisacodyL bisacodyl EC dextrose OR dextrose dextrose 5% water dextrose 5% water fentaNYL fentaNYL fluticasone propionate glucagon heparin OR heparin lidocaine midazolam ondansetron ODT OR ondansetron phenoL polyethylene glycol ramelteon PRN Meds: acetaminophen albuterol HFA bisacodyL bisacodyl EC dextrose OR dextrose dextrose 5% water dextrose 5% water fentaNYL fentaNYL fluticasone propionate glucagon heparin OR heparin lidocaine midazolam ondansetron ODT OR ondansetron phenoL polyethylene glycol ramelteon OBJECTIVE Vitals: Vitals: 06/16/22 0434 BP: Pulse: 53 Resp: Temp: SpO2: 95% Input and Output: Intake/Output Summary (Last 24 hours) at 06/16/2022 0549 Last data filed at 06/16/2022 0500 Gross per 24 hour Intake 2601.57 ml Output 270 ml Net 2331.57 ml Ventilator Settings: 20/500/80/12 Physical Exam: General: Intubated and sedated Eyes: PERRL. Sclera nonicteric. ENT: MMM. ETT in place. Trialysis line in L neck. +large L neck hematoma Cardiac: Regular rate and rhythm. Pulm: On ventilator. Soft crackles throughout lung charles GI/Abd: Soft, obese, nondistended, BS positive Lymphatic: No significant LAD Extremities: No peripheral cyanosis. Warm extremities 1+ pitting edema. Skin: No rash or bruises Neuro: Sedated on ventilator. PERRL. LABORATORY DATA CBC Recent Labs Lab Units 06/16/22 0001 06/15/222050 WBC K/cumm 11.1* 12.7* HEMOGLOBIN g/dL 7.4* 7.2* HEMATOCRIT % 22.6* 21.9* PLATELETS K/cumm 215 204 NEUTROS PCT % -- 67.7 LYMPHS PCT % -- 11.2 MONOS PCT % -- 13.3 EOS PCT % -- 1.5 Chem Recent Labs Lab Units 06/16/22 0452 06/16/22 0001 06/15/222050 SODIUM mmol/L -- -- 137 POTASSIUM PLASMA mmol/L -- -- 4.6 CHLORIDE mmol/L -- -- 101 CO2 mmol/L -- -- 26 ANIONGAP mmol/L -- -- 10 BUN SERUM mg/dL -- -- 29* CREATININE mg/dL -- -- 3.93* GLUCOSE mg/dL -- -- 179 POC GLUCOSE MONITOR mg/dL 425* < > -- CALCIUM mg/dL -- -- 9.5 < > = values in this interval not displayed. LFTs Recent Labs Lab Units 06/15/222050 ALK PHOS Units/L 235* BILIRUBIN TOTAL mg/dL 0.5 TOTAL PROTEIN g/dL 6.5 ALT Units/L 36 AST Units/L 50 Coags Recent Labs Lab Units 06/16/22 0001 06/12/22 0152 06/11/22 1521 APTT sec 53* < > 30 INR -- -- 1.0 < > = values in this interval not displayed. Cardiac Enzymes No results found for: TROPONINT Lab Results Lab Value Date/Time TROPONINI 0.03 03/21/2017 2232 TROPONINI 0.03 03/21/2017 0715 TROPONINI <0.03 11/06/2013 0612 TROPONINI <0.03 11/05/2013 2147 TROPONINI <0.03 11/05/2013 1430 TROPONINI <0.03 11/05/2013 0937 Urine Analysis ABG Recent Labs Lab Units 06/15/22 1121 PH ART 7.38 PCO2 ART mmHg 39 PO2 ART mmHg 100 HCO3 ART (CALC) mmol/L 23 BASE EXC ART mmol/L -2 O2 SAT ART (UYEN) % 98* Screening Labs: Iron Studies Cholesterol Hgb A1C Radiology and Other Diagnostics: XR Chest 1 View Result Date: 06/06/2022 The current study is compared with the prior radiograph dated 06/05/2022 3:14 PM. The cardiomediastinal silhouette is stable. There are persistent diffuse bilateral airspace opacities compatible withmoderate to severe pulmonary edema. The extent of the opacities is similar to slightly increased compared to the prior examination. No definite pleural effusion, though the left costophrenic angle isexcluded. No pneumothorax. Dictated by: Jersey Morales MD The radiology attending physician has personally reviewed this study, and had reviewed and/or edited this written report and agrees with it. Electronically signed by: Saurav Emerson M.D. TTE (06/08/22): SUMMARY: s/p Impella placement across the aortic valve into the LV cavity. HR 48 bpm. Pacer wire in the RA and RV. LV cavity size is moderately dilated Eccentric LV hypertrophy. Mild hypokientsis in anterior wall and anterior septem sugegsting CAD/[place] in the LAD territory. LVEF is in normal range 56%. Impaired LV relaxation. LA is mildly dilated. Mildly dilated RV cavity size with normal RV systolic function. Mildly dilated RA size. Normal Inferior vena cava. Normal aortic root. Mils to mod AR. Trace TR. PASP= 23 mm Hg +RAP. ASSESSMENT and PLAN Adelia Garvin Jr. is a 51 y.o. male with a history of CHF (EF 50% 2017), Afib (not on AC), HTN, CAD s/p stent 04/06 and 3 stent 12/07, T1DM (insulin pump at home), ESRD on PD, HLD, GERD, hyperparathyroidism, DDD, OA, gout, BEN on CPAP initially presented to [facility] for n/v and chest pain, transferred to [facility] for LHC/PCI, who presented to the CCU s/p complex PCI complicated by hypoxemic respiratory failure requiring intubation, impella support, veletri gtt. Active Issues: #Cardiogenic shock #NSTEMI s/p complex PCI #CAD S/p complex PCI to the LCx and OM, impella placed and pt was intubated and transferred to the CCU. Etiology of decompensation likely flash pulmonary edema leading to acute hypoxic respiratory distress. Impella removed and veletri weaned off 06/10/22. TTE following impella removal shows LVEF 65%, though LVSVi 25ml/m2. - continue PD for fluid removal; tbw renal about pulling volume with PD - heparin ggt, dapt, atorva --> d/c aspirin and replace heparin with DOAC once extubated - serial lactates #Concern for distributive shock #Leukocytosis Increasing temperature (T 100.2 on 06/15, white count) concerning for infection. No concerns for cholecystitis, RP bleed on CT noncon c/a/p 06/11, possible VAP vs aspiration. - pending tracheal aspirate cx, blood cx, c. 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 Etiology of respiratory decompensation likely flash pulmonary edema, ARDS also possible. Less likely but also possible PNA. Arrived to CCU on ventilator settings: 34/500/90/15, not requiring pressors. Impella removed 06/10. - wean ventilator settings as tolerated; goal decrease by 2.5 per day - PSV trial today if able - start family discussions about possible trach (9d intuabted) - pulmonary following, recs appreciated - daily CXR #Agitation #Sedation Intubated 06/07. Tolerated PSV on 06/15 for several hours but required re- sedation due to altered mental status. - weaning dexmedetomidine, fentanyl as tolerated - versed 2 q2h prn - propofol weaned off on 06/15 due to triglyceridemia; triglycerides now down trending Remaining issues: CARDIAC #HFrEF TTE (2016): EF 50%. TTE (2021) with bubble study showed moderate concentric LVH with EF 65% and bubble study was positive with valsalva. - holding home hydral/imdur/lasix #Afib Not on anticoagulation at home. CHADsVasc 4 - holding home metoprolol given cardiogenic shock - heparin ggt RENAL #ESRD on PD #Volume overload Presented to CCU in AHRF likely s/t volume overload. - continue PD - removed trialysis line 06/16 overnight - renal following, recs appreciated GI #Cholecystitis Patient with CT CAP and RUQ US c/f cholecystitis at OSH. Repeat CT 06/11 without e/o cholecystitis.Has been unable to get HIDA scan due to decompensation. - HIDA scan when stable - continue IV Abx: meropenem, vanc - gen surg consulted: recommended against surgical procedure or perc cholesystostomy ENDO #T1DM #DKA - resolved Pt has T1DM; has insulin pump at home. Prior to intubation was on lantus 33u qam, humalog 9u tidac,resistant correctional humalog tidac, hs. In CCU, patient with DKA: BG in 300s, AG 21, K 3.3, BHB 2.3, ABG with pCO2 27. Treated with insulin gtt, D5, and K repletion. Labs improved to BG 100s, AG 10, K 4.0, BHB 0.1, pCO2 37. - glucose increased with PD -- tbw nephrology/endocrine about insulin requirements - continue basal insulin 33 units - continue resistant SSI q4h - lispro 5 q4h - continue TF at 45/hr, appreciate endo recs HEME/ONC #Anemia Hgb 9.5 on admission to [facility] and 7.8 on arrival to CCU. Hgb subsequently measured at 4.3, but actually 7.5 on re-draw. Received consent for blood transfusion if necessary from patient's brother. - transfuse for Hgb <7 - maintain active T&S - CTM H/H Checklist [] Central Line/ PICC: PAC, trialysis [] DVT PPX: heparin gtt [] PUD PPX: IV 40 pantoprazole BID [] Glucose Control: glargine 33U, lispro 5 q4h, SSI q4h [] Weaning/Extubation: on vent, wean as able [] HOB >30 [] Sedation: fentanyl, propofol [] Volume Status: FBG neg [] Medication Reviewed [] Nutrition: NG placed, currently sedated/on vent [] PT/OT: not consulted as patient intubated/sedated [] AM Labs: ordered [] Invasive Devices: none [] External urinary Catheter: placed 06/08 [] Family Updated: called evening 06/07 [] Code Status: Full Code Attending MD to make comment on patient risk/complexity. Tyra De La Torre MD Resident Physician, Internal Medicine Cosigned by Rufino Flores MD at 06/16/2022 1:51 PM CDT Associated attestation - Rufino Flores MD - 06/16/2022 1:51 PM CDT Critical Care Time: I have spent 35 minutes in full attendance with this critically ill patient making frequent reassessments and decisions regarding this patient's complex medical care. Critical care time was exclusive of separately billable procedures, treating other patients and teaching time. Critical care was necessary to treat or prevent imminent or life-threatening deterioration of the following conditions: Cardiogenic shock Acute hypoxemic respiratory failure Recommendations for treatment include: 1) Mixed cardiogenic/distributive shock. - Degree of decompensation out of proportion to cardiac etiology - Repeat TTE following impella removal shows LVEF 65%, though LVSVi 25ml/m2 Concern for mixed shock, likely a distributive/septic component from possible cholecystitis vs pneumonia (both suspected on initial CT imaging) vs line infection vs aspiration PNA - Trach aspirate / blood cultures NGTD, Cdiff negative; abdominal CT without worsening abdominal pathology; broadened antibiotics - Continue supportive care - Serial lactates, surrogates of perfusion 2) Acute hypoxemic respiratory failure - Patient is net negative several L and has a slowly improving oxygen requirement. Pulmonology feltthis was not consistent with ARDS but just pulmonary edema. - Continue volume removal with CVVHD - Decrease PEEP as tolerated, goal to decrease by 2.5 per day, if tolerated - On Vanc/Kaylah (day 5, day 8 respectively) - Discuss further ventilator optimizations given rising FiO2 3) Agitation - Precedex, fentanyl/versed combination - Current barrier to successful extubation 4) CAD/Afib - DAPT and systemic AC - Hep gtt - Preference for at least 7 days of triple therapy, followed by DOAC +P2Y12 therapy if possible to decrease bleeding risk Attending Documentation: I have seen and examined this patient on the day of service. I have reviewed and confirmed the history, physical exam, laboratory and radiographic data with the house staff as documented in the ICU resident note. I have reviewed and discussed my treatment plan with the ICU team and other medical/investigations consultant staff. * Flax, Brekk - 06/15/2022 4:15 PM CDT 06/15/22 1614 PT Last Visit PT Missed Visit Reason Sedated (pt intubated/sedated) Recommendation/Plan PT Frequency Monitor status PT - Next Appointment 06/17/22 Cosigned by Faby Poole, PT at 06/15/2022 4:45 PM CDT * Tyra De La Torre MD - 06/15/2022 5:23 AM CDT CCU DAILY PROGRESS Patient: Adelia Garvin Jr. Room: [place] [id number] Date: 06/15/2022 Summary Statement: Adelia Garvin Jr. is a 51 y.o. male with a history of CHF (EF 50% 2016), Afib (not on AC), HTN, CAD s/p stent 04/06 and 3 stent 12/07, T1DM (insulin pump at home), ESRD on PD, HLD, GERD, hyperparathyroidism, DDD, OA, gout, BEN on CPAP initially presented to OSH for n/v and chest pain, transferred to [facility] for LHC/PCI, who presented to CCU s/p complex PCI with impella and intubated. SUBJECTIVE Interval: - PEEP weaned to 8, FiO2 to 40% overnight - triglycerides increased to 482 (from 324) - dialysis line continuing to clot; likely line issue - Tmax overnight 100.2 Brief Plan Updates: - c diff, repeat blood cx, repeat ua/ucx given temperature trend - consider replacement of trialysis line vs starting PD - wean propofol; switch over to precedex MEDICATIONS Scheduled Meds: Scheduled Meds:aspirin, 81 mg, feeding tube, Daily atorvastatin, 80 mg, feeding tube, Daily calcitRIOL, 0.25 mcg, feeding tube, Daily [Held by Provider] calcium acetate(phosphat bind), 667 mg, oral, QID chlorhexidine, 15 mL, mouth/throat, BID [Held by Provider] cloNIDine, 0.1 mg, oral, BID clopidogreL, 75 mg, feeding tube, Daily docusate, 100 mg, feeding tube, Daily ezetimibe, 10 mg, feeding tube, Daily gentamicin, , topical, Daily insulin glargine, 33 Units, subcutaneous, QAM insulin lispro, 0-10 Units, subcutaneous, Q4H ASHLEY insulin lispro, 5 Units, subcutaneous, Q4H meropenem, 1,000 mg, intravenous, Q12H ASHLEY [Held by Provider] nystatin, 500,000 Units, swish & spit, QID pantoprazole, 40 mg, intravenous, BID phenylephrine, , , polyethylene glycol, 17 g, feeding tube, BID senna, 8.8 mg, oral, Nightly vancomycin, 1,750 mg, intravenous, Q24H Continuous Infusions:dexmedeTOMIDine, 0-1.5 mcg/kg/hr, Last Rate: Stopped (06/10/22 2300) fentaNYL, 0-400 mcg/hr, Last Rate: 175 mcg/hr (06/15/22 040) heparin, 0-33 Units/kg/hr, Last Rate: 7.5 Units/kg/hr (06/15/22 040) midazolam, 0-12 mg/hr, Last Rate: Stopped (06/13/22 1327) norepinephrine, 0-2 mcg/kg/min (Dosing Weight), Last Rate: Stopped (06/11/22399) NxStage 3-potassium/3-calcium, 1,400 mL/hr, Last Rate: 1,400 mL/hr (06/14/22 2133) NxStage 3-potassium/3-calcium, 1,400 mL/hr, Last Rate: 1,400 mL/hr (06/15/22 0344) propofol, 0-50 mcg/kg/min, Last Rate: 40 mcg/kg/min (06/15/22 0400) sodium chloride 0.9%, 10 mL/hr, Last Rate: 10 mL/hr (06/12/22 0834) sodium chloride 0.9%, 1,000 mL sodium chloride 0.9%, 3-12 mL/hr sodium chloride 0.9%, 3-12 mL/hr, Last Rate: 3 mL/hr (06/15/22 0100) PRN Meds:. acetaminophen albuterol HFA bisacodyL bisacodyl EC dextrose OR dextrose dextrose 5% water dextrose 5% water fentaNYL fentaNYL fluticasone propionate glucagon Dialysis Access Care AND heparin heparin OR heparin lidocaine ondansetron ODT OR ondansetron phenoL polyethylene glycol ramelteon sodium chloride 0.9% PRN Meds: acetaminophen albuterol HFA bisacodyL bisacodyl EC dextrose OR dextrose dextrose 5% water dextrose 5% water fentaNYL fentaNYL fluticasone propionate glucagon Dialysis Access Care AND heparin heparin OR heparin lidocaine ondansetron ODT OR ondansetron phenoL polyethylene glycol ramelteon sodium chloride 0.9% OBJECTIVE Vitals: Vitals: 06/15/22 0400 BP: Pulse: 94 Resp: 18 Temp: 37.7 ??C (99.9 ??F) SpO2: 91% Input and Output: Intake/Output Summary (Last 24 hours) at 06/15/2022 0523 Last data filed at 06/15/2022 0400 Gross per 24 hour Intake 1849.71 ml Output 3012 ml Net -1162.29 ml Ventilator Settings: 20/500/80/12 Physical Exam: General: Intubated and sedated Eyes: PERRL. Sclera nonicteric. ENT: MMM. ETT in place. Trialysis line in L neck. +large L neck hematoma Cardiac: Regular rate and rhythm. Pulm: On ventilator. Soft crackles throughout lung charles GI/Abd: Soft, obese, nondistended, BS positive Lymphatic: No significant LAD Extremities: No peripheral cyanosis. Warm extremities 1+ pitting edema. Skin: No rash or bruises Neuro: Sedated on ventilator. PERRL. LABORATORY DATA CBC Recent Labs Lab Units 06/14/221940 WBC K/cumm 15.0* HEMOGLOBIN g/dL 8.3* HEMATOCRIT % 24.9* PLATELETS K/cumm 218 NEUTROS PCT % 66.0 LYMPHS PCT % 11.2 MONOS PCT % 10.8 EOS PCT % 2.1 Chem Recent Labs Lab Units 06/15/22 0337 06/14/22 2352 06/14/22 1941 SODIUM mmol/L -- -- 138 POTASSIUM PLASMA mmol/L -- -- 4.7 CHLORIDE mmol/L -- -- 102 CO2 mmol/L -- -- 27 ANIONGAP mmol/L -- -- 9 BUN SERUM mg/dL -- -- 17 CREATININE mg/dL -- -- 2.22* GLUCOSE mg/dL -- -- 182 POC GLUCOSE MONITOR mg/dL 264* < > -- CALCIUM mg/dL -- -- 9.1 < > = values in this interval not displayed. LFTs Recent Labs Lab Units 06/14/22 1941 ALK PHOS Units/L 264* BILIRUBIN TOTAL mg/dL 0.6 TOTAL PROTEIN g/dL 6.5 ALT Units/L 45 AST Units/L 73* Coags Recent Labs Lab Units 06/14/22 0816 06/12/22 0152 06/11/22 1521 APTT sec 67* < > 30 INR -- -- 1.0 < > = values in this interval not displayed. Cardiac Enzymes No results found for: TROPONINT Lab Results Lab Value Date/Time TROPONINI 0.03 03/21/2017 2232 TROPONINI 0.03 03/21/2017 0715 TROPONINI <0.03 11/06/2013 0612 TROPONINI <0.03 11/05/2013 2147 TROPONINI <0.03 11/05/2013 1430 TROPONINI <0.03 11/05/2013 0937 Urine Analysis Recent Labs Lab Units 06/09/22 0408 COLOR U Yellow CLARITY U Clear SPEC GRAV U 1.018 PH, URINE 5.5 PROTEIN UR QL 1+* GLUCOSE URQL 4+* KETONES UR Negative BLOOD UR 2+* NITRITE UR Negative LEUKOCYTE ESTERASE UR Negative ABG Recent Labs Lab Units 06/15/22 0337 PH ART 7.36 PCO2 ART mmHg 41 PO2 ART mmHg 64* HCO3 ART (CALC) mmol/L 24 BASE EXC ART mmol/L -2 O2 SAT ART (UYEN) % 92 Screening Labs: Iron Studies Cholesterol Hgb A1C Radiology and Other Diagnostics: XR Chest 1 View Result Date: 06/06/2022 The current study is compared with the prior radiograph dated 06/05/2022 3:14 PM. The cardiomediastinal silhouette is stable. There are persistent diffuse bilateral airspace opacities compatible withmoderate to severe pulmonary edema. The extent of the opacities is similar to slightly increased compared to the prior examination. No definite pleural effusion, though the left costophrenic angle isexcluded. No pneumothorax. Dictated by: Jersey Morales MD The radiology attending physician has personally reviewed this study, and had reviewed and/or edited this written report and agrees with it. Electronically signed by: Saurav Emerson M.D. TTE (06/08/22): SUMMARY: s/p Impella placement across the aortic valve into the LV cavity. HR 48 bpm. Pacer wire in the RA and RV. LV cavity size is moderately dilated Eccentric LV hypertrophy. Mild hypokientsis in anterior wall and anterior septem sugegsting CAD/NY in the LAD territory. LVEF is in normal range 56%. Impaired LV relaxation. LA is mildly dilated. Mildly dilated RV cavity size with normal RV systolic function. Mildly dilated RA size. Normal Inferior vena cava. Normal aortic root. Mils to mod AR. Trace TR. PASP= 23 mm Hg +RAP. ASSESSMENT and PLAN Adelia Garvin Jr. is a 51 y.o. male with a history of CHF (EF 50% 2016), Afib (not on AC), HTN, CAD s/p stent 04/06 and 3 stent 12/07, T1DM (insulin pump at home), ESRD on PD, HLD, GERD, hyperparathyroidism, DDD, OA, gout, BEN on CPAP initially presented to [facility] for n/v and chest pain, transferred to [facility] for LHC/PCI, who presented to the CCU s/p complex PCI complicated by hypoxemic respiratory failure requiring intubation, impella support, veletri gtt. Active Issues: NEURO #Sedation On propofol, fentanyl gtt. Versed stopped 06/14. - triglycerides continuing to increase - wean propofol to precedex as tolerated given triglyceridemia CARDIAC #Cardiogenic shock #NSTEMI s/p complex PCI #CAD S/p complex PCI to the LCx and OM, impella placed and pt was intubated and transferred to the CCU. Etiology of decompensation likely flash pulmonary edema leading to acute hypoxic respiratory distress. Impella removed and veletri weaned off 06/10/22. - continue cvvhd for fluid removal - daily cxr - continue dapt, atorva #HFrEF TTE (2016): EF 50%. TTE with bubble study showed moderate concentric LVH with EF 65% and bubble study was positive with valsalva - holding home hydral/imdur/lasix #Concern for sepsis #Leukocytosis Increasing temperature (T 100.2 on 06/15, white count) concerning for infection. No concerns for cholecystitis, RP bleed on CT noncon c/a/p 06/11, possible VAP vs aspiration. - repeat UA, blood cx - pending tracheal aspirate cx - c diff - vanc (06/10-), kaylah (06/05-) #Afib Not on anticoagulation at home. 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 Etiology of respiratory decompensation likely flash pulmonary edema, ARDS also possible. Less likely but also possible PNA. Arrived to CCU on ventilator settings: 34/500/90/15, not requiring pressors. Impella removed 06/10. - wean ventilator settings as tolerated - daily CXR - CVVHD for fluid removal per renal recs - pulmonary following, recs appreciated RENAL #ESRD on PD #Volume overload Presented to CCU in AHRF likely s/t volume overload. - continue cvvhd - consider replacing trialysis line vs starting PD - renal following, recs appreciated GI #Cholecystitis Patient with CT CAP and RUQ US c/f cholecystitis at OSH. Repeat CT 06/11 without e/o cholecystitis.Has been unable to get HIDA scan due to decompensation. - HIDA scan when stable - continue IV Abx: meropenem, vanc - gen surg consulted: recommended against surgical procedure or perc cholesystostomy ENDO #T1DM #DKA - resolved Pt has T1DM; has insulin pump at home. Prior to intubation was on lantus 33u qam, humalog 9u tidac,resistant correctional humalog tidac, hs. In CCU, patient with DKA: BG in 300s, AG 21, K 3.3, BHB 2.3, ABG with pCO2 27. Treated with insulin gtt, D5, and K repletion. Labs improved to BG 100s, AG 10, K 4.0, BHB 0.1, pCO2 37. - continue basal insulin 33 units - continue resistant SSI q4h - lispro 5 q4h - continue TF at 45/hr, appreciate endo recs HEME/ONC #Anemia Hgb 9.5 on admission to [facility] and 7.8 on arrival to CCU. Hgb subsequently measured at 4.3, but actually 7.5 on re-draw. Received consent for blood transfusion if necessary from patient's brother. - transfuse for Hgb <7 - maintain active T&S - CTM H/H Checklist [] Central Line/ PICC: PAC, trialysis [] DVT PPX: heparin gtt [] PUD PPX: IV 40 pantoprazole BID [] Glucose Control: glargine 33U, lispro 5 q4h, SSI q4h [] Weaning/Extubation: on vent, wean as able [] HOB >30 [] Sedation: fentanyl, propofol [] Volume Status: FBG neg [] Medication Reviewed [] Nutrition: NG placed, currently sedated/on vent [] PT/OT: not consulted as patient intubated/sedated [] AM Labs: ordered [] Invasive Devices: none [] External urinary Catheter: placed 06/08 [] Family Updated: called evening 06/07 [] Code Status: Full Code Attending MD to make comment on patient risk/complexity. Tyra De La Torre MD Resident Physician, Internal Medicine Cosigned by Rufino Flores MD at 06/15/2022 8:32 AM CDT Associated attestation - Rufino Flores MD - 06/15/2022 8:32 AM CDT Critical Care Time: I have spent 35 minutes in full attendance with this critically ill patient making frequent reassessments and decisions regarding this patient's complex medical care. Critical care time was exclusive of separately billable procedures, treating other patients and teaching time. Critical care was necessary to treat or prevent imminent or life-threatening deterioration of the following conditions: Cardiogenic shock Acute hypoxemic respiratory failure Recommendations for treatment include: 1) Mixed cardiogenic/distributive shock. - Degree of decompensation out of proportion to cardiac etiology - Repeat TTE following impella removal shows LVEF 65%, though LVSVi 25ml/m2 Concern for mixed shock, likely a distributive/septic component from possible cholecystitis vs pneumonia (both suspected on initial CT imaging) vs line infection vs aspiration PNA - Trach aspirate cultures pending, abdominal CT without worsening abdominal pathology; broadened antibiotics, cultures sent - Continue supportive care - Serial lactates, surrogates of perfusion 2) Acute hypoxemic respiratory failure - Patient is net negative several L and has a slowly improving oxygen requirement. Pulmonology feltthis was not consistent with ARDS but just pulmonary edema. - Continue volume removal with CVVHD - Decrease PEEP as tolerated, goal to decrease by 2.5 per day, if tolerated - On Vanc/Kaylah (day 4, day 7 respectively) - Discuss further ventilator optimizations given rising FiO2 3) Agitation - Weaning propofol given elevated TG; transition attempt to precedex or fentanyl/versed combination - Trend lipases given elevated TG with propofol 4) CAD/Afib - DAPT and systemic AC will be needed; - Hep gtt - Preference for at least 7 days of triple therapy, followed by DOAC +P2Y12 therapy if possible to decrease bleeding risk Attending Documentation: I have seen and examined this patient on the day of service. I have reviewed and confirmed the history, physical exam, laboratory and radiographic data with the house staff as documented in the ICU resident note. I have reviewed and discussed my treatment plan with the ICU team and other medical/investigations consultant staff. * Lavern Morrison MD - 06/14/2022 4:39 PM CDT CCU DAILY PROGRESS Patient: Adelia Garvin Jr. Room: [id number] Date: 06/14/2022 Summary Statement: Adelia Garvin Jr. is a 51 y.o. male with a history of CHF (EF 50% 2016), Afib (not on AC), HTN, CAD s/p stent 04/06 and 3 stent 12/07, T1DM (insulin pump at home), ESRD on PD, HLD, GERD, hyperparathyroidism, DDD, OA, gout, BEN on CPAP initially presented to OSH for n/v and chest pain, transferred to [facility] for LHC/PCI, who presented to CCU s/p complex PCI with impella and intubated. SUBJECTIVE Interval: -ETT pushed further in and CXR now with ETT 3 cm above the boni -Patient weaned to FiO2 40 overnight, increased to FiO2 100 later this morning and was eventually weaned back to FiO2 40 later today after suction of thick mucous -Patient remains off pressors -Triglycerides increased to 324 from 248 - TTE with bubble study showed moderate concentric LVH with EF 65% and bubble study was positive with valsalva - CXR from 4 AM with small L pleural effusion and associated LLL collapse Brief Plan Updates: - Repeat CXR - Touch base with pulmonology for recs re: thick mucous - Wean propofol as able; switch over to fentanyl/versed MEDICATIONS Scheduled Meds: Scheduled Meds:[Held by Provider] amLODIPine, 10 mg, oral, Daily aspirin, 81 mg, feeding tube, Daily atorvastatin, 80 mg, feeding tube, Daily calcitRIOL, 0.25 mcg, feeding tube, Daily [Held by Provider] calcium acetate(phosphat bind), 667 mg, oral, QID chlorhexidine, 15 mL, mouth/throat, BID [Held by Provider] cloNIDine, 0.1 mg, oral, BID clopidogreL, 75 mg, feeding tube, Daily docusate, 100 mg, feeding tube, Daily [Held by Provider] ergocalciferol, 50,000 Units, oral, Weekly ezetimibe, 10 mg, feeding tube, Daily gentamicin, , topical, Daily [Held by Provider] hydrALAZINE, 100 mg, oral, Q8H insulin glargine, 33 Units, subcutaneous, QAM insulin lispro, 0-10 Units, subcutaneous, Q4H ASHLEY insulin lispro, 5 Units, subcutaneous, Q4H [Held by Provider] isosorbide mononitrate ER, 30 mg, oral, Daily meropenem, 1,000 mg, intravenous, Q12H ASHLEY [Held by Provider] metoprolol tartrate, 12.5 mg, oral, Q6H [Held by Provider] nystatin, 500,000 Units, swish & spit, QID pantoprazole, 40 mg, intravenous, BID perflutren protein-a, , , polyethylene glycol, 17 g, feeding tube, BID [Held by Provider] ranolazine ER, 500 mg, oral, BID senna, 8.8 mg, oral, Nightly [Held by Provider] terazosin, 2 mg, oral, Nightly vancomycin, 1,750 mg, intravenous, Q24H Continuous Infusions:dexmedeTOMIDine, 0-1.5 mcg/kg/hr, Last Rate: Stopped (06/10/22 2300) fentaNYL, 0-400 mcg/hr, Last Rate: 150 mcg/hr (06/14/22 1600) heparin, 0-33 Units/kg/hr, Last Rate: 7.5 Units/kg/hr (06/14/22 1600) midazolam, 0-12 mg/hr, Last Rate: Stopped (06/13/22 1327) nitroglycerin, 0-400 mcg/min, Last Rate: Stopped (06/05/22 2100) norepinephrine, 0-2 mcg/kg/min (Dosing Weight), Last Rate: Stopped (06/11/22 0400) NxStage 3-potassium/3-calcium, 1,400 mL/hr, Last Rate: 1,400 mL/hr (06/14/22 1025) NxStage 3-potassium/3-calcium, 1,400 mL/hr, Last Rate: 1,400 mL/hr (06/14/22 1419) propofol, 0-50 mcg/kg/min, Last Rate: 30 mcg/kg/min (06/14/22 1600) sodium chloride 0.9%, 10 mL/hr, Last Rate: 10 mL/hr (06/12/22 0834) sodium chloride 0.9%, 10 mL/hr, Last Rate: 10 mL/hr (06/09/22 0700) sodium chloride 0.9%, 10 mL/hr sodium chloride 0.9%, 10 mL/hr, Last Rate: 10 mL/hr (06/09/22 0700) sodium chloride 0.9%, 6 mL/hr, Last Rate: 6 mL/hr (06/10/22 1700) sodium chloride 0.9%, 1,000 mL sodium chloride 0.9%, 3-12 mL/hr, Last Rate: 3 mL/hr (06/14/22 1014) sodium chloride 0.9%, 3-12 mL/hr sodium chloride 0.9%, 3-12 mL/hr, Last Rate: 3 mL/hr (06/14/22 1200) PRN Meds:. acetaminophen albuterol HFA bisacodyL bisacodyl EC dextrose OR dextrose dextrose 5% water dextrose 5% water fentaNYL fentaNYL fluticasone propionate glucagon Dialysis Access Care AND heparin heparin OR heparin lidocaine ondansetron ODT OR ondansetron phenoL polyethylene glycol ramelteon sodium chloride 0.9% PRN Meds: acetaminophen albuterol HFA bisacodyL bisacodyl EC dextrose OR dextrose dextrose 5% water dextrose 5% water fentaNYL fentaNYL fluticasone propionate glucagon Dialysis Access Care AND heparin heparin OR heparin lidocaine ondansetron ODT OR ondansetron phenoL polyethylene glycol ramelteon sodium chloride 0.9% OBJECTIVE Vitals: Vitals: 06/14/22 1600 BP: Pulse: 75 Resp: 20 Temp: SpO2: 97% Input and Output: Intake/Output Summary (Last 24 hours) at 06/14/2022 1639 Last data filed at 06/14/2022 1600 Gross per 24 hour Intake 2272.31 ml Output 4742 ml Net -2469.69 ml Ventilator Settings: 20/500/80/12 Physical Exam: General: Intubated and sedated Eyes: PERRL. Sclera nonicteric. ENT: MMM. ETT in place. Trialysis line in L neck. +large L neck hematoma Cardiac: Regular rate and rhythm. Pulm: On ventilator. Soft crackles throughout lung charles GI/Abd: Soft, obese, nondistended, BS positive Lymphatic: No significant LAD Extremities: No peripheral cyanosis. Warm extremities 1+ pitting edema. Skin: No rash or bruises Neuro: Sedated on ventilator. PERRL. LABORATORY DATA CBC Recent Labs Lab Units 06/14/22 0816 WBC K/cumm 15.7* HEMOGLOBIN g/dL 8.3* HEMATOCRIT % 25.5* PLATELETS K/cumm 217 NEUTROS PCT % 64.1 LYMPHS PCT % 12.7 MONOS PCT % 9.5 EOS PCT % 1.9 Chem Recent Labs Lab Units 06/14/22 1616 06/14/22 0818 06/14/22 0816 SODIUM mmol/L -- -- 134* POTASSIUM PLASMA mmol/L -- -- 4.7 CHLORIDE mmol/L -- -- 100 CO2 mmol/L -- -- 25 ANIONGAP mmol/L -- -- 9 BUN SERUM mg/dL -- -- 16 CREATININE mg/dL -- -- 2.19* GLUCOSE mg/dL -- -- 171 POC GLUCOSE MONITOR mg/dL 229* < > -- CALCIUM mg/dL -- -- 9.5 < > = values in this interval not displayed. LFTs Recent Labs Lab Units 06/14/22 0816 ALK PHOS Units/L 276* BILIRUBIN TOTAL mg/dL 0.6 TOTAL PROTEIN g/dL 6.6 ALT Units/L 48 AST Units/L 81* Coags Recent Labs Lab Units 06/14/22 0816 06/12/22 0152 06/11/22 1521 APTT sec 67* < > 30 INR -- -- 1.0 < > = values in this interval not displayed. Cardiac Enzymes No results found for: TROPONINT Lab Results Lab Value Date/Time TROPONINI 0.03 03/21/2017 2232 TROPONINI 0.03 03/21/2017 0715 TROPONINI <0.03 11/06/2013 0612 TROPONINI <0.03 11/05/2013 2147 TROPONINI <0.03 11/05/2013 1430 TROPONINI <0.03 11/05/2013 0937 Urine Analysis Recent Labs Lab Units 06/09/22 0408 COLOR U Yellow CLARITY U Clear SPEC GRAV U 1.018 PH, URINE 5.5 PROTEIN UR QL 1+* GLUCOSE URQL 4+* KETONES UR Negative BLOOD UR 2+* NITRITE UR Negative LEUKOCYTE ESTERASE UR Negative ABG Recent Labs Lab Units 06/14/22 0816 PH ART 7.41 PCO2 ART mmHg 38 PO2 ART mmHg 89 HCO3 ART (CALC) mmol/L 25 BASE EXC ART mmol/L 0 O2 SAT ART (UYEN) % 97* Screening Labs: Iron Studies Recent Labs Lab Units 06/07/221999 IRON mcg/dL 50 TIBC mcg/dL 130* Recent Labs Lab Units 06/07/221999 FERRITIN ng/mL 2,062* Cholesterol Hgb A1C Radiology and Other Diagnostics: XR Chest 1 View Result Date: 06/06/2022 The current study is compared with the prior radiograph dated 06/05/2022 3:14 PM. The cardiomediastinal silhouette is stable. There are persistent diffuse bilateral airspace opacities compatible withmoderate to severe pulmonary edema. The extent of the opacities is similar to slightly increased compared to the prior examination. No definite pleural effusion, though the left costophrenic angle isexcluded. No pneumothorax. Dictated by: Jersey Morales MD The radiology attending physician has personally reviewed this study, and had reviewed and/or edited this written report and agrees with it. Electronically signed by: Saurav Emerson M.D. TTE (06/08/22): SUMMARY: s/p Impella placement across the aortic valve into the LV cavity. HR 48 bpm. Pacer wire in the RA and RV. LV cavity size is moderately dilated Eccentric LV hypertrophy. Mild hypokientsis in anterior wall and anterior septem sugegsting CAD/[place] in the LAD territory. LVEF is in normal range 56%. Impaired LV relaxation. LA is mildly dilated. Mildly dilated RV cavity size with normal RV systolic function. Mildly dilated RA size. Normal Inferior vena cava. Normal aortic root. Mils to mod AR. Trace TR. PASP= 23 mm Hg +RAP. ASSESSMENT and PLAN Adelia Garvin Jr. is a 51 y.o. male with a history of CHF (EF 50% 2017), Afib (not on AC), HTN, CAD s/p stent 04/06 and 3 stent 12/07, T1DM (insulin pump at home), ESRD on PD, HLD, GERD, hyperparathyroidism, DDD, OA, gout, BEN on CPAP initially presented to [facility] for n/v and chest pain, transferred to [facility] for LHC/PCI, who presented to the CCU s/p complex PCI complicated by hypoxemic respiratory failure requiring intubation, impella support, veletri gtt. Active Issues: NEURO #Sedation On propofol, fentanyl, versed gtt -Triglycerides increased to 324 from 248 -Wean propofol as tolerated given triglyceridemia CARDIAC #Septic shock #Leukocytosis Increasing pressor requirement, white count, hypothermia overnight 06/10 concerning for septic shock. No concerns for cholecystitis, RP bleed on CT noncon c/a/p 06/11, possible VAP vs aspiration -Vanc(06/11-), kaylah (06/05-) -f/u repeat UA, blood cx, tracheal aspirate cx neg #Cardiogenic shock #NSTEMI s/p complex PCI #CAD S/p complex PCI to the LCx and OM, impella placed and pt was intubated and transferred to the CCU. Etiology of decompensation likely flash pulmonary edema leading to acute hypoxic respiratory distress. Impella removed and veletri weaned off 06/10/22. - continue cvvhd for fluid removal - daily cxr - continue dapt, atorva #Afib Not on anticoagulation at home. CHADsVasc 4 - holding home metoprolol given cardiogenic shock. 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 Etiology of respiratory decompensation likely flash pulmonary edema, ARDS also possible. Less likely but also possible PNA. Arrived to CCU on ventilator settings: 34/500/90/15, not requiring pressors. Has been stable at 20/50/70/12 for several days while impella, veletri have been weaning. Now off veletri. - wean ventilator settings as tolerated - TTE with bubble - CVVHD for fluid removal per renal recs - pulmonary following, recs appreciated - Daily CXR - ETT repositioned to 3 cm above boni - CXR from 4 AM with small L pleural effusion and associated LLL collapse - Touch base with pulmonology for recs re: thick mucous - repeat CXR RENAL #ESRD on PD #Volume overload Presented to CCU in AHRF likely s/t volume overload. - continue cvvhd - renal following, recs appreciated GI #Cholecystitis Patient with CT CAP and RUQ US c/f cholecystitis at OSH. Repeat CT 06/11 without e/o cholecystitis.Has been unable to get HIDA scan due to decompensation. - HIDA scan when stable - continue IV Abx: meropenem, vanc - gen surg consulted: recommended against surgical procedure or perc cholesystostomy ENDO #T1DM #DKA - resolved Pt has T1DM; has insulin pump at home. Prior to intubation was on lantus 33u qam, humalog 9u tidac,resistant correctional humalog tidac, hs. In CCU, patient with DKA: BG in 300s, AG 21, K 3.3, BHB 2.3, ABG with pCO2 27. Treated with insulin gtt, D5, and K repletion. Labs improved to BG 100s, AG 10, K 4.0, BHB 0.1, pCO2 37. - continue basal insulin 33 units - continue resistant SSI q4h - lispro 5 q4h - continue TF at 45/hr, appreciate endo recs HEME/ONC #Anemia Hgb 9.5 on admission to [facility] and 7.8 on arrival to CCU. Hgb subsequently measured at 4.3, but actually 7.5 on re-draw. Received consent for blood transfusion if necessary from patient's brother. - transfuse for Hgb <7 - maintain active T&S - CTM H/H Checklist [] Central Line/ PICC: PAC, trialysis [] DVT PPX: heparin gtt [] PUD PPX: IV 40 pantoprazole BID [] Glucose Control: glargine 33U, lispro 5 q4h, SSI q4h [] Weaning/Extubation: on vent, wean as able [] HOB >30 [] Sedation: propofol 40 [] Volume Status: FBG neg [] Medication Reviewed [] Nutrition: NG placed, currently sedated/on vent [] PT/OT: not consulted as patient intubated/sedated [] AM Labs: ordered [] Invasive Devices: none [] External urinary Catheter: placed 06/08 [] Family Updated: called evening 06/07 [] Code Status: Full Code Attending MD to make comment on patient risk/complexity. Lavern Morrison MD Resident Physician, Internal Medicine Cosigned by Rufino Flores MD at 06/20/2022 9:29 AM CDT Associated attestation - Rufino Flores MD - 06/20/2022 9:29 AM CDT Critical Care Time: I have spent 35 minutes in full attendance with this critically ill patient making frequent reassessments and decisions regarding this patient's complex medical care. Critical care time was exclusive of separately billable procedures, treating other patients and teaching time. Critical care was necessary to treat or prevent imminent or life-threatening deterioration of the following conditions: Cardiogenic shock Acute hypoxemic respiratory failure Recommendations for treatment include: 1) Mixed cardiogenic/distributive shock. - Degree of decompensation out of proportion to cardiac etiology - Repeat TTE following impella removal shows LVEF 65%, though LVSVi 25ml/m2 Concern for mixed shock, likely a distributive/septic component from possible cholecystitis vs pneumonia (both suspected on initial CT imaging) vs line infection vs aspiration PNA - Trach aspirate / blood cultures NGTD, Cdiff negative; abdominal CT without worsening abdominal pathology; broadened antibiotics - Continue supportive care - Serial lactates, surrogates of perfusion 2) Acute hypoxemic respiratory failure - Patient is net negative several L and has a slowly improving oxygen requirement. Pulmonology feltthis was not consistent with ARDS but just pulmonary edema. - Continue volume removal with CVVHD - Decrease PEEP as tolerated, goal to decrease by 2.5 per day, if tolerated - On Vanc/Kaylah (day 5, day 8 respectively) - Discuss further ventilator optimizations given rising FiO2 3) Agitation - Wean propofol - Precedex, fentanyl/versed combination - Current barrier to successful extubation 4) CAD/Afib - DAPT and systemic AC - Hep gtt - Preference for at least 7 days of triple therapy, followed by DOAC +P2Y12 therapy if possible to decrease bleeding risk Attending Documentation: I have seen and examined this patient on the day of service. I have reviewed and confirmed the history, physical exam, laboratory and radiographic data with the house staff as documented in the ICU resident note. I have reviewed and discussed my treatment plan with the ICU team and other medical/investigations consultant staff. * Payam Johnson, DEFLECTOR OPERATOR - 06/14/2022 11:56 AM CDT 06/14/22 1135 Airway Type of Airway ETT Vent Information Adult Vent Mode VC/AC Vent ID [id number] Vent Type PB 980 Vent Status In Use ETT ETT - single 8 mm Placement Date/Time: 06/07/22 1319 Mask Ventilation: Vent by mask Technique: Rapid sequence;Stylet ETT Type: ETT - single Single Lumen Tube Size: 8 mm Cuffed: Yes Laryngoscope: Breann Location: Oral Airway Insertion Attempts: 1 Placement ... Secured at (cm) 26 cm Measured from Teeth Secured Location Left Secured by Commercial tube watson secured Minimal occlusion volume Yes Air Leak No Settings FiO2 (%) 80 % Resp Rate (Set) 20 Vt (Set, mL) 500 mL PEEP/CPAP/EPAP (cm H2O) 10 cm H20 Peak Insp. Flow (set) 70 l/m Trigger Sensitivity Flow (L/min) 2 L/min Humidification Heater Heater Temperature (set) 37 ??C (98.6 ??F) Vital Signs Pulse 90 ETCO2 (mmHg) Vent 23 mmHg SpO2 100 % Measured (Vent) Resp Rate Observed 22 VT (exhaled) 527 mL PIP Observed (cm H2O) 19 cm H2O Minute Ventilation (L/min) 11.4 L/min MAP (cmH2O) 11 Heater Temperature (measured) 37.1 ??C (98.8 ??F) Alarms High Rate (alarm) 40 bpm High Insp. Press (alarm) 45 cmH2O Apnea Alarm On Yes MV High (L/min) (alarm) 20 L/min MV Low (alarm) 3 L/min VT High (alarm) 800 mL VT Low (alarm) 200 mL Safety Bundle Suction Available Yes Suction Catheter Present Yes Extra Trach Present Yes Flow Meter Present Not applicable Resuscitation Bag Present Yes Respiratory Device Secured Commerical tube watson secure to skin External alarm connected? Yes IHI Ventilator Associated Pneumonia Bundle Head of Bed Elevated HOB 30 VAE Reporting Vent Mode for VAE Reporting VC/AC RT Therapist Assist Charges RT Therapist Assist Ventilation 1 The patient continues on full support at this time. * Lavern Morrison MD - 06/13/2022 6:02 PM CDT CCU DAILY PROGRESS Patient: Adelia Garvin Jr. Room: [id number] Date: 06/13/2022 Summary Statement: Adelia Garvin Jr. is a 51 y.o. male with a history of CHF (EF 50% 2017), Afib (not on AC), HTN, CAD s/p stent 04/06 and 3 stent 12/07, T1DM (insulin pump at home), ESRD on PD, HLD, GERD, hyperparathyroidism, DDD, OA, gout, BEN on CPAP initially presented to OSH for n/v and chest pain, transferred to [facility] for LHC/PCI, who presented to CCU s/p complex PCI with impella and intubated. SUBJECTIVE Interval: -CXR with ETT 5.5 cm above the boni -Hyperkalemia to 5.6 this AM -Patient weaned to FiO2 40 overnight. ABG this AM: 7.40 / 40 / 66 / 26 -Patient remains off pressors -Triglycerides improved from 345 to 248 Brief Plan Updates: - TTE with bubble study - Daily CXR - Touch base with nephrology re CVVHD and hyperkalemia - Continue to wean propofol; switch to fentanyl/versed MEDICATIONS Scheduled Meds: Scheduled Meds:[Held by Provider] amLODIPine, 10 mg, oral, Daily aspirin, 81 mg, feeding tube, Daily atorvastatin, 80 mg, feeding tube, Daily calcitRIOL, 0.25 mcg, feeding tube, Daily [Held by Provider] calcium acetate(phosphat bind), 667 mg, oral, QID chlorhexidine, 15 mL, mouth/throat, BID [Held by Provider] cloNIDine, 0.1 mg, oral, BID clopidogreL, 75 mg, feeding tube, Daily docusate, 100 mg, feeding tube, Daily [Held by Provider] ergocalciferol, 50,000 Units, oral, Weekly ezetimibe, 10 mg, feeding tube, Daily gentamicin, , topical, Daily [Held by Provider] hydrALAZINE, 100 mg, oral, Q8H insulin glargine, 33 Units, subcutaneous, QAM insulin lispro, 0-10 Units, subcutaneous, Q4H ASHLEY insulin lispro, 5 Units, subcutaneous, Q4H [Held by Provider] isosorbide mononitrate ER, 30 mg, oral, Daily meropenem, 1,000 mg, intravenous, Q12H ASHLEY [Held by Provider] metoprolol tartrate, 12.5 mg, oral, Q6H [Held by Provider] nystatin, 500,000 Units, swish & spit, QID pantoprazole, 40 mg, intravenous, BID polyethylene glycol, 17 g, feeding tube, BID [Held by Provider] ranolazine ER, 500 mg, oral, BID senna, 8.8 mg, oral, Nightly [Held by Provider] terazosin, 2 mg, oral, Nightly vancomycin, 15 mg/kg, intravenous, Q24H Continuous Infusions:dexmedeTOMIDine, 0-1.5 mcg/kg/hr, Last Rate: Stopped (06/10/22 2300) peritoneal fluid with or without additives for CAPD, , Last Rate: 500 mL/hr at 06/13/22 1047 fentaNYL, 0-400 mcg/hr, Last Rate: 125 mcg/hr (06/13/22 170) heparin, 0-2,000 Units/hr, Last Rate: 1,100 Units/hr (06/13/22 07) heparin, 0-33 Units/kg/hr, Last Rate: 7.5 Units/kg/hr (06/13/221699) midazolam, 0-12 mg/hr, Last Rate: Stopped (06/13/22 1327) nitroglycerin, 0-400 mcg/min, Last Rate: Stopped (06/05/22 2100) norepinephrine, 0-2 mcg/kg/min (Dosing Weight), Last Rate: Stopped (06/11/22 0400) NxStage 3-potassium/3-calcium, 1,400 mL/hr, Last Rate: 1,400 mL/hr (06/13/22 1318) NxStage 3-potassium/3-calcium, 1,400 mL/hr, Last Rate: 1,400 mL/hr (06/13/22 131) propofol, 0-50 mcg/kg/min, Last Rate: 40 mcg/kg/min (06/13/22 170) sodium chloride 0.9%, 10 mL/hr, Last Rate: 10 mL/hr (06/12/22 0834) sodium chloride 0.9%, 10 mL/hr, Last Rate: 10 mL/hr (06/09/22 07) sodium chloride 0.9%, 10 mL/hr sodium chloride 0.9%, 10 mL/hr, Last Rate: 10 mL/hr (06/09/22 07) sodium chloride 0.9%, 6 mL/hr, Last Rate: 6 mL/hr (06/10/22 170) sodium chloride 0.9%, 1,000 mL sodium chloride 0.9%, 1,000 mL sodium chloride 0.9%, 3-12 mL/hr sodium chloride 0.9%, 3-12 mL/hr sodium chloride 0.9%, 3-12 mL/hr, Last Rate: 3 mL/hr (06/13/22 1700) PRN Meds:. acetaminophen albuterol HFA bisacodyL bisacodyl EC dextrose OR dextrose dextrose 5% water dextrose 5% water fentaNYL fentaNYL fluticasone propionate glucagon Dialysis Access Care AND heparin Dialysis Access Care AND heparin heparin OR heparin lidocaine ondansetron ODT OR ondansetron phenoL polyethylene glycol ramelteon sodium chloride 0.9% sodium chloride 0.9% PRN Meds: acetaminophen albuterol HFA bisacodyL bisacodyl EC dextrose OR dextrose dextrose 5% water dextrose 5% water fentaNYL fentaNYL fluticasone propionate glucagon Dialysis Access Care AND heparin Dialysis Access Care AND heparin heparin OR heparin lidocaine ondansetron ODT OR ondansetron phenoL polyethylene glycol ramelteon sodium chloride 0.9% sodium chloride 0.9% OBJECTIVE Vitals: Vitals: 06/13/22 1700 BP: Pulse: 74 Resp: 20 Temp: SpO2: 96% Input and Output: Intake/Output Summary (Last 24 hours) at 06/13/2022 1803 Last data filed at 06/13/2022 1700 Gross per 24 hour Intake 3256.46 ml Output 4843 ml Net -1586.54 ml Ventilator Settings: 20/500/80/12 Physical Exam: General: Intubated and sedated Eyes: PERRL. Sclera nonicteric. ENT: MMM. ETT in place. Trialysis line in L neck. +large L neck hematoma Cardiac: Regular rate and rhythm. Pulm: On ventilator. Soft crackles throughout lung charles GI/Abd: Soft, obese, nondistended, BS positive Lymphatic: No significant LAD Extremities: No peripheral cyanosis. Warm extremities 2+ pitting edema. Small erythematous area on right lateral thigh, now covered with dressing. Skin: No rash or bruises Neuro: Sedated on ventilator. PERRL. LABORATORY DATA CBC Recent Labs Lab Units 06/13/22 0933 WBC K/cumm 15.6* HEMOGLOBIN g/dL 7.7* HEMATOCRIT % 23.1* PLATELETS K/cumm 191 NEUTROS PCT % 83.6 LYMPHS PCT % 4.3 MONOS PCT % 2.6 EOS PCT % 1.7 Chem Recent Labs Lab Units 06/13/22 1611 06/13/22 0938 06/13/22 0933 SODIUM mmol/L -- -- 135 POTASSIUM PLASMA mmol/L -- -- 5.6* CHLORIDE mmol/L -- -- 98 CO2 mmol/L -- -- 26 ANIONGAP mmol/L -- -- 11 BUN SERUM mg/dL -- -- 19 CREATININE mg/dL -- -- 2.26* GLUCOSE mg/dL -- -- 217* POC GLUCOSE MONITOR mg/dL 99 < > -- CALCIUM mg/dL -- -- 8.7 < > = values in this interval not displayed. LFTs Recent Labs Lab Units 06/13/22 0933 ALK PHOS Units/L 300* BILIRUBIN TOTAL mg/dL 0.7 TOTAL PROTEIN g/dL 6.5 ALT Units/L 55 AST Units/L 90* Coags Recent Labs Lab Units 06/13/22 1612 06/12/22 0152 06/11/22 1521 APTT sec 71* < > 30 INR -- -- 1.0 < > = values in this interval not displayed. Cardiac Enzymes No results found for: TROPONINT Lab Results Lab Value Date/Time TROPONINI 0.03 03/21/2017 2232 TROPONINI 0.03 03/21/2017 0715 TROPONINI <0.03 11/06/2013 0612 TROPONINI <0.03 11/05/2013 2147 TROPONINI <0.03 11/05/2013 1430 TROPONINI <0.03 11/05/2013 0937 Urine Analysis Recent Labs Lab Units 06/09/22 0408 COLOR U Yellow CLARITY U Clear SPEC GRAV U 1.018 PH, URINE 5.5 PROTEIN UR QL 1+* GLUCOSE URQL 4+* KETONES UR Negative BLOOD UR 2+* NITRITE UR Negative LEUKOCYTE ESTERASE UR Negative ABG Recent Labs Lab Units 06/13/22 1612 PH ART 7.43 PCO2 ART mmHg 39 PO2 ART mmHg 63* HCO3 ART (CALC) mmol/L 27 BASE EXC ART mmol/L 2 O2 SAT ART (UYEN) % 92 Screening Labs: Iron Studies Recent Labs Lab Units 06/07/22 2000 IRON mcg/dL 50 TIBC mcg/dL 130* Recent Labs Lab Units 06/07/221999 FERRITIN ng/mL 2,062* Cholesterol Hgb A1C Radiology and Other Diagnostics: XR Chest 1 View Result Date: 06/06/2022 The current study is compared with the prior radiograph dated 06/05/2022 3:14 PM. The cardiomediastinal silhouette is stable. There are persistent diffuse bilateral airspace opacities compatible withmoderate to severe pulmonary edema. The extent of the opacities is similar to slightly increased compared to the prior examination. No definite pleural effusion, though the left costophrenic angle isexcluded. No pneumothorax. Dictated by: Jersey Morales MD The radiology attending physician has personally reviewed this study, and had reviewed and/or edited this written report and agrees with it. Electronically signed by: Saurav Emerson M.D. TTE (06/08/22): SUMMARY: s/p Impella placement across the aortic valve into the LV cavity. HR 48 bpm. Pacer wire in the RA and RV. LV cavity size is moderately dilated Eccentric LV hypertrophy. Mild hypokientsis in anterior wall and anterior septem sugegsting CAD/[place] in the LAD territory. LVEF is in normal range 56%. Impaired LV relaxation. LA is mildly dilated. Mildly dilated RV cavity size with normal RV systolic function. Mildly dilated RA size. Normal Inferior vena cava. Normal aortic root. Mils to mod AR. Trace TR. PASP= 23 mm Hg +RAP. ASSESSMENT and PLAN Adelia Garvin Jr. is a 51 y.o. male with a history of CHF (EF 50% 2016), Afib (not on AC), HTN, CAD s/p stent 04/06 and 3 stent 12/07, T1DM (insulin pump at home), ESRD on PD, HLD, GERD, hyperparathyroidism, DDD, OA, gout, BEN on CPAP initially presented to [facility] for n/v and chest pain, transferred to [facility] for LHC/PCI, who presented to the CCU s/p complex PCI complicated by hypoxemic respiratory failure requiring intubation, impella support, veletri gtt. Active Issues: NEURO #Sedation On propofol, fentanyl, versed gtt Wean propofol as tolerated given triglyceridemia CARDIAC #Septic shock #Leukocytosis Increasing pressor requirement, white count, hypothermia overnight 06/10 concerning for septic shock. No concerns for cholecystitis, RP bleed on CT noncon c/a/p 06/11, possible VAP vs aspiration -Vanc(06/11-), kaylah (06/05-) -f/u repeat UA, blood cx, tracheal aspirate cx neg #Cardiogenic shock #NSTEMI s/p complex PCI #CAD S/p complex PCI to the LCx and OM, impella placed and pt was intubated and transferred to the CCU. Etiology of decompensation likely flash pulmonary edema leading to acute hypoxic respiratory distress. Impella removed and veletri weaned off 06/10/22. - continue cvvhd for fluid removal - daily cxr - continue dapt, atorva #Afib Not on anticoagulation at home. CHADsVasc 4 - holding home metoprolol given cardiogenic shock. 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 Etiology of respiratory decompensation likely flash pulmonary edema, ARDS also possible. Less likely but also possible PNA. Arrived to CCU on ventilator settings: 34/500/90/15, not requiring pressors. Has been stable at 20/50/70/12 for several days while impella, veletri have been weaning. Now off veletri. - wean ventilator settings as tolerated - TTE with bubble - CVVHD for fluid removal per renal recs - pulmonary following, recs appreciated - Daily CXR - Reposition ETT (5.5 cm above boni on cxr) RENAL #ESRD on PD #Volume overload Presented to CCU in AHRF likely s/t volume overload. - continue cvvhd - renal following, recs appreciated GI #Cholecystitis Patient with CT CAP and RUQ US c/f cholecystitis at OSH. Repeat CT 06/11 without e/o cholecystitis.Has been unable to get HIDA scan due to decompensation. - HIDA scan when stable - continue IV Abx: meropenem, vanc - gen surg consulted: recommended against surgical procedure or perc cholesystostomy ENDO #T1DM #DKA - resolved Pt has T1DM; has insulin pump at home. Prior to intubation was on lantus 33u qam, humalog 9u tidac,resistant correctional humalog tidac, hs. In CCU, patient with DKA: BG in 300s, AG 21, K 3.3, BHB 2.3, ABG with pCO2 27. Treated with insulin gtt, D5, and K repletion. Labs improved to BG 100s, AG 10, K 4.0, BHB 0.1, pCO2 37. - continue basal insulin 33 units - continue resistant SSI q4h - lispro 5 q4h - continue TF at 45/hr, appreciate endo recs HEME/ONC #Anemia Hgb 9.5 on admission to [facility] and 7.8 on arrival to CCU. Hgb subsequently measured at 4.3, but actually 7.5 on re-draw. Received consent for blood transfusion if necessary from patient's brother. - transfuse for Hgb <7 - maintain active T&S - CTM H/H Checklist [] Central Line/ PICC: PAC, trialysis [] DVT PPX: heparin gtt [] PUD PPX: IV 40 pantoprazole BID [] Glucose Control: glargine 33U, lispro 5 q4h, SSI q4h [] Weaning/Extubation: on vent, wean as able [] HOB >30 [] Sedation: propofol 40 [] Volume Status: FBG neg [] Medication Reviewed [] Nutrition: NG placed, currently sedated/on vent [] PT/OT: not consulted as patient intubated/sedated [] AM Labs: ordered [] Invasive Devices: none [] External urinary Catheter: placed 06/08 [] Family Updated: called evening 06/07 [] Code Status: Full Code Attending MD to make comment on patient risk/complexity. Lavern Morrison MD Resident Physician, Internal Medicine Cosigned by Rufino Flores MD at 06/14/2022 2:28 PM CDT Associated attestation - Rufino Flores MD - 06/14/2022 2:28 PM CDT Critical Care Time: I have spent 35 minutes in full attendance with this critically ill patient making frequent reassessments and decisions regarding this patient's complex medical care. Critical care time was exclusive of separately billable procedures, treating other patients and teaching time. Critical care was necessary to treat or prevent imminent or life-threatening deterioration of the following conditions: Cardiogenic shock Acute hypoxemic respiratory failure Recommendations for treatment include: 1) Mixed cardiogenic/distributive shock. - Degree of decompensation out of proportion to cardiac etiology - Repeat TTE following impella removal shows LVEF 65%, though LVSVi 25ml/m2 Concern for mixed shock, likely a distributive/septic component from possible cholecystitis vs pneumonia (both suspected on initial CT imaging) vs line infection vs aspiration PNA - Trach aspirate cultures pending, abdominal CT without worsening abdominal pathology; broadened antibiotics, cultures sent - Continue supportive care - Serial lactates, surrogates of perfusion 2) Acute hypoxemic respiratory failure - Patient is net negative several L and has a slowly improving oxygen requirement. Pulmonology feltthis was not consistent with ARDS but just pulmonary edema. - Continue volume removal with CVVHD - Decrease PEEP as tolerated, goal to decrease by 2.5 per day, if tolerated - On Vanc/Kaylah (day 3, day 6 respectively) - Discuss further ventilator optimizations given rising FiO2 3) Agitation - Weaning propofol given elevated TG; transition attempt to precedex or fentanyl/versed combination - Trend lipases given elevated TG with propofol 4) CAD/Afib - DAPT and systemic AC will be needed; - Hep gtt - Preference for at least 7 days of triple therapy, followed by DOAC +P2Y12 therapy if possible to decrease bleeding risk Attending Documentation: I have seen and examined this patient on the day of service. I have reviewed and confirmed the history, physical exam, laboratory and radiographic data with the house staff as documented in the ICU resident note. I have reviewed and discussed my treatment plan with the ICU team and other medical/investigations consultant staff. * Olga Bernstein, PT - 06/13/2022 9:14 AM CDT Physical Therapy 06/13/22 0913 General PT Missed Visit Reason Bedrest;Sedated (impella, CVVHD) Recommendation/Plan PT Frequency Monitor status PT - Next Appointment 06/15/22 * Jeffrey Green MD - 06/12/2022 4:58 AM CDT CCU DAILY PROGRESS Patient: Adelia Garvin Jr. Room: [place] [id number] Date: 06/12/2022 Summary Statement: Adelia Garvin Jr. is a 51 y.o. male with a history of CHF (EF 50% 2016), Afib (not on AC), HTN, CAD s/p stent 04/06 and 3 stent 12/07, T1DM (insulin pump at home), ESRD on PD, HLD, GERD, hyperparathyroidism, DDD, OA, gout, BEN on CPAP initially presented to OSH for n/v and chest pain, transferred to [facility] for LHC/PCI, who presented to CCU s/p complex PCI with impella and intubated. SUBJECTIVE Interval: -Went for CT-CAP (non-con), no e/o bleeding cholecystitis. Possible VAP vs aspiration/atelectasis. -Dialysis circuit has had issues clotting off several times, a couple times unable to return blood,--> Hgb drop 1.5 points. Ran UF at 150 to avoid clotting issues -1999 ABG 7.38/39/111/, weaned fio2 to 50% -Weaned vaso to 0.01 Brief Plan Updates: MEDICATIONS Scheduled Meds: Scheduled Meds:[Held by Provider] amLODIPine, 10 mg, oral, Daily aspirin, 81 mg, feeding tube, Daily atorvastatin, 80 mg, feeding tube, Daily calcitRIOL, 0.25 mcg, feeding tube, Daily [Held by Provider] calcium acetate(phosphat bind), 667 mg, oral, QID chlorhexidine, 15 mL, mouth/throat, BID [Held by Provider] cloNIDine, 0.1 mg, oral, BID clopidogreL, 75 mg, feeding tube, Daily docusate, 100 mg, feeding tube, Daily [Held by Provider] ergocalciferol, 50,000 Units, oral, Weekly ezetimibe, 10 mg, feeding tube, Daily [Held by Provider] hydrALAZINE, 100 mg, oral, Q8H insulin glargine, 33 Units, subcutaneous, QAM insulin lispro, 0-10 Units, subcutaneous, Q4H ASHLEY insulin lispro, 2 Units, subcutaneous, Q4H [Held by Provider] isosorbide mononitrate ER, 30 mg, oral, Daily meropenem, 1,000 mg, intravenous, Q12H ASHLEY [Held by Provider] metoprolol tartrate, 12.5 mg, oral, Q6H [Held by Provider] nystatin, 500,000 Units, swish & spit, QID pantoprazole, 40 mg, intravenous, BID polyethylene glycol, 17 g, feeding tube, BID [Held by Provider] ranolazine ER, 500 mg, oral, BID senna, 1 tablet, feeding tube, Daily [Held by Provider] terazosin, 2 mg, oral, Nightly vancomycin, 15 mg/kg, intravenous, Q24H Continuous Infusions:dexmedeTOMIDine, 0-1.5 mcg/kg/hr, Last Rate: Stopped (06/10/22 2300) fentaNYL, 0-400 mcg/hr, Last Rate: 200 mcg/hr (06/12/22 040) heparin, 0-2,000 Units/hr, Last Rate: 1,100 Units/hr (06/12/22 040) midazolam, 0-12 mg/hr, Last Rate: 2.5 mg/hr (06/12/22399) nitroglycerin, 0-400 mcg/min, Last Rate: Stopped (06/05/22 2100) norepinephrine, 0-2 mcg/kg/min (Dosing Weight), Last Rate: Stopped (06/11/22 040) NxStage 4-potassium/2.5-calcium, 1,400 mL/hr, Last Rate: 1,400 mL/hr (06/12/22 0254) NxStage 4-potassium/2.5-calcium, 1,400 mL/hr, Last Rate: 1,400 mL/hr (06/11/22 1626) propofol, 0-50 mcg/kg/min, Last Rate: 25 mcg/kg/min (06/12/22 0400) sodium chloride 0.9%, 10 mL/hr, Last Rate: 10 mL/hr (06/11/22 1200) sodium chloride 0.9%, 10 mL/hr, Last Rate: 10 mL/hr (06/09/22 0700) sodium chloride 0.9%, 10 mL/hr sodium chloride 0.9%, 10 mL/hr, Last Rate: 10 mL/hr (06/09/22 0700) sodium chloride 0.9%, 6 mL/hr, Last Rate: 6 mL/hr (06/10/22 1700) sodium chloride 0.9%, 1,000 mL sodium chloride 0.9%, 3-12 mL/hr sodium chloride 0.9%, 3-12 mL/hr sodium chloride 0.9%, 3-12 mL/hr, Last Rate: 3 mL/hr (06/11/22 1900) vasopressin, 0-0.06 Units/min, Last Rate: 0.02 Units/min (06/12/22 044) PRN Meds:. acetaminophen albuterol HFA bisacodyL bisacodyl EC dextrose OR dextrose dextrose 5% water dextrose 5% water fentaNYL fentaNYL fluticasone propionate glucagon Dialysis Access Care AND heparin lidocaine ondansetron ODT OR ondansetron phenoL polyethylene glycol ramelteon sodium chloride 0.9% PRN Meds: acetaminophen albuterol HFA bisacodyL bisacodyl EC dextrose OR dextrose dextrose 5% water dextrose 5% water fentaNYL fentaNYL fluticasone propionate glucagon Dialysis Access Care AND heparin lidocaine ondansetron ODT OR ondansetron phenoL polyethylene glycol ramelteon sodium chloride 0.9% OBJECTIVE Vitals: Vitals: 06/12/22 0440 BP: Pulse: 69 Resp: 21 Temp: SpO2: Input and Output: Intake/Output Summary (Last 24 hours) at 06/12/2022 0458 Last data filed at 06/12/2022 0400 Gross per 24 hour Intake 2437.55 ml Output 1903 ml Net 534.55 ml Ventilator Settings: 20/500/80/12 Physical Exam: General: Intubated and sedated Eyes: PERRL. Sclera nonicteric. ENT: MMM. ETT in place. Trialysis line in L neck. +large L neck hematoma Cardiac: Regular rate and rhythm. Pulm: On ventilator. Soft crackles throughout lung charles GI/Abd: Soft, obese, nondistended, BS positive Lymphatic: No significant LAD Extremities: No peripheral cyanosis. Warm extremities 2+ pitting edema Skin: No rash or bruises Neuro: Sedated on ventilator. PERRL. LABORATORY DATA CBC Recent Labs Lab Units 06/11/22 2325 WBC K/cumm 13.5* HEMOGLOBIN g/dL 7.9* HEMATOCRIT % 23.7* PLATELETS K/cumm 188 NEUTROS PCT % 79.9 LYMPHS PCT % 10.1 MONOS PCT % 4.2 EOS PCT % 1.7 Chem Recent Labs Lab Units 06/11/22 2332 06/11/222011 SODIUM mmol/L -- 135 POTASSIUM PLASMA mmol/L -- 4.7 CHLORIDE mmol/L -- 101 CO2 mmol/L -- 23 ANIONGAP mmol/L -- 11 BUN SERUM mg/dL -- 28* CREATININE mg/dL -- 3.01* GLUCOSE mg/dL -- 185 POC GLUCOSE MONITOR mg/dL 206* -- CALCIUM mg/dL -- 8.1* LFTs Recent Labs Lab Units 06/11/222011 ALK PHOS Units/L 211* BILIRUBIN TOTAL mg/dL 0.9 TOTAL PROTEIN g/dL 5.5* ALT Units/L 45 AST Units/L 95* Coags Recent Labs Lab Units 06/12/22 0152 06/11/22 1521 APTT sec 52* 30 INR -- 1.0 Cardiac Enzymes No results found for: TROPONINT Lab Results Lab Value Date/Time TROPONINI 0.03 03/21/2017 2232 TROPONINI 0.03 03/21/2017 0715 TROPONINI <0.03 11/06/2013 0612 TROPONINI <0.03 11/05/2013 2147 TROPONINI <0.03 11/05/2013 1430 TROPONINI <0.03 11/05/2013 0937 Urine Analysis Recent Labs Lab Units 06/09/22 0408 COLOR U Yellow CLARITY U Clear SPEC GRAV U 1.018 PH, URINE 5.5 PROTEIN UR QL 1+* GLUCOSE URQL 4+* KETONES UR Negative BLOOD UR 2+* NITRITE UR Negative LEUKOCYTE ESTERASE UR Negative ABG Recent Labs Lab Units 06/11/22 2325 PH ART 7.37 PCO2 ART mmHg 41 PO2 ART mmHg 91 HCO3 ART (CALC) mmol/L 24 BASE EXC ART mmol/L -1 O2 SAT ART (UYEN) % 97* Screening Labs: Iron Studies Recent Labs Lab Units 06/07/22 2000 IRON mcg/dL 50 TIBC mcg/dL 130* Recent Labs Lab Units 06/07/221999 FERRITIN ng/mL 2,062* Cholesterol Hgb A1C Radiology and Other Diagnostics: XR Chest 1 View Result Date: 06/06/2022 The current study is compared with the prior radiograph dated 06/05/2022 3:14 PM. The cardiomediastinal silhouette is stable. There are persistent diffuse bilateral airspace opacities compatible withmoderate to severe pulmonary edema. The extent of the opacities is similar to slightly increased compared to the prior examination. No definite pleural effusion, though the left costophrenic angle isexcluded. No pneumothorax. Dictated by: Jersey Morales MD The radiology attending physician has personally reviewed this study, and had reviewed and/or edited this written report and agrees with it. Electronically signed by: Saurav Emerson M.D. TTE (06/08/22): SUMMARY: s/p Impella placement across the aortic valve into the LV cavity. HR 48 bpm. Pacer wire in the RA and RV. LV cavity size is moderately dilated Eccentric LV hypertrophy. Mild hypokientsis in anterior wall and anterior septem sugegsting CAD/[place] in the LAD territory. LVEF is in normal range 56%. Impaired LV relaxation. LA is mildly dilated. Mildly dilated RV cavity size with normal RV systolic function. Mildly dilated RA size. Normal Inferior vena cava. Normal aortic root. Mils to mod AR. Trace TR. PASP= 23 mm Hg +RAP. ASSESSMENT and PLAN Adelia Garvin Jr. is a 51 y.o. male with a history of CHF (EF 50% 2016), Afib (not on AC), HTN, CAD s/p stent 04/06 and 3 stent 12/07, T1DM (insulin pump at home), ESRD on PD, HLD, GERD, hyperparathyroidism, DDD, OA, gout, BEN on CPAP initially presented to [facility] for n/v and chest pain, transferred to [facility] for LHC/PCI, who presented to the CCU s/p complex PCI complicated by hypoxemic respiratory failure requiring intubation, impella support, veletri gtt. Active Issues: NEURO #Sedation On propofol, fentanyl, versed gtt Wean propofol as tolerated given triglyceridemia CARDIAC #Septic shock #Leukocytosis Increasing pressor requirement, white count, hypothermia overnight 06/10 concerning for septic shock. No concerns for cholecystitis, RP bleed on CT noncon c/a/p 06/11, possible VAP vs aspiration -Vanc(06/11-), kaylah (06/05-) -f/u repeat UA, blood cx, tracheal aspirate cx neg #Cardiogenic shock #NSTEMI s/p complex PCI #CAD S/p complex PCI to the LCx and OM, impella placed and pt was intubated and transferred to the CCU. Etiology of decompensation likely flash pulmonary edema leading to acute hypoxic respiratory distress. Impella removed and veletri weaned off 06/10/22. - continue cvvhd for fluid removal - daily cxr - continue dapt, atorva #Afib Not on anticoagulation at home. CHADsVasc 4 - holding home metoprolol given cardiogenic shock. 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 Etiology of respiratory decompensation likely flash pulmonary edema, ARDS also possible. Less likely but also possible PNA. Arrived to CCU on ventilator settings: 34/500/90/15, not requiring pressors. Has been stable at 20/50/70/12 for several days while impella, veletri have been weaning. Now off veletri. - wean ventilator settings as tolerated - TTE with bubble - CVVHD for fluid removal per renal recs - pulmonary following, recs appreciated RENAL #ESRD on PD #Volume overload Presented to CCU in AHRF likely s/t volume overload. - continue cvvhd - renal following, recs appreciated GI #Cholecystitis Patient with CT CAP and RUQ US c/f cholecystitis at OSH. Repeat CT 06/11 without e/o cholecystitis.Has been unable to get HIDA scan due to decompensation. - HIDA scan when stable - continue IV Abx: meropenem, vanc - gen surg consulted: recommended against surgical procedure or perc cholesystostomy ENDO #T1DM #DKA - resolved Pt has T1DM; has insulin pump at home. Prior to intubation was on lantus 33u qam, humalog 9u tidac,resistant correctional humalog tidac, hs. In CCU, patient with DKA: BG in 300s, AG 21, K 3.3, BHB 2.3, ABG with pCO2 27. Treated with insulin gtt, D5, and K repletion. Labs improved to BG 100s, AG 10, K 4.0, BHB 0.1, pCO2 37. - continue basal insulin 33 units - continue resistant SSI q4h - lispro 2 q4h - TF started, appreciate endo recs HEME/ONC #Anemia Hgb 9.5 on admission to [facility] and 7.8 on arrival to CCU. Hgb subsequently measured at 4.3, but actually 7.5 on re-draw. Received consent for blood transfusion if necessary from patient's brother. - transfuse for Hgb <7 - maintain active T&S - CTM H/H Checklist [] Central Line/ PICC: PAC, trialysis [] DVT PPX: heparin gtt [] PUD PPX: IV 40 pantoprazole BID [] Glucose Control: glargine 33U, SSI q4h [] Weaning/Extubation: on vent, wean as able [] HOB >30 [] Sedation: propofol 20 [] Volume Status: FBG neg [] Medication Reviewed [] Nutrition: NG placed, currently sedated/on vent [] PT/OT: not consulted as patient intubated/sedated [] AM Labs: ordered [] Invasive Devices: Impella CP [] External urinary Catheter: placed 06/08 [] Family Updated: called evening 06/07 [] Code Status: Full Code Attending MD to make comment on patient risk/complexity. Jeffrey Green MD Resident Physician, Internal Medicine Cosigned by Rufino Flores MD at 06/12/2022 12:55 PM CDT Associated attestation - Rufino Flores MD - 06/12/2022 12:55 PM CDT Critical Care Time: I have spent 35 minutes in full attendance with this critically ill patient making frequent reassessments and decisions regarding this patient's complex medical care. Critical care time was exclusive of separately billable procedures, treating other patients and teaching time. Critical care was necessary to treat or prevent imminent or life-threatening deterioration of the following conditions: 1) Acute hypoxemic respiratory failure 2) Cardiogenic shock Recommendations for treatment include: 1) acute hypoxemic respiratory failure. Patient is net negative several L and has a slowly improving oxygen requirement. Pulmonology felt this was not consistent with ARDS but just pulmonary edema. - Continue volume removal with CVVHD 2) Mixed cardiogenic/distributive shock. - Degree of decompensation out of proportion to cardiac etiology - Concern for mixed shock, likely a distributive/septic component from possible cholecystitis vs pneumonia (both suspected on initial CT imaging) vs line infection vs aspiration PNA - Trach aspirate cultures pending, abdominal CT without worsening abdominal pathology; broadened antibiotics, cultures sent - Continue supportive care - Serial lactates, surrogates of perfusion 3) Agitation - Weaning propofol given elevated TG; transition attempt to precedex or fentanyl/versed combination - Trend lipases given elevated TG with propofol 4) CAD/Afib - DAPT and systemic AC will be needed; awaiting stability in hemodynamics, hgb levels - Preference for at least 7 days of triple therapy, followed by DOAC +P2Y12 therapy if possible to decrease bleeding risk Attending Documentation: I have seen and examined this patient on the day of service. I have reviewed and confirmed the history, physical exam, laboratory and radiographic data with the house staff as documented in the ICU resident note. I have reviewed and discussed my treatment plan with the ICU team and other medical/investigations consultant staff. * Jeffrey Green MD - 06/11/2022 2:46 AM CDT CCU DAILY PROGRESS Patient: Adelia Garvin Jr. Room: [id number] Date: 06/11/2022 Summary Statement: Adelia Garvin Jr. is a 51 y.o. male with a history of CHF (EF 50% 2016), Afib (not on AC), HTN, CAD s/p stent 04/06 and 3 stent 12/07, T1DM (insulin pump at home), ESRD on PD, HLD, GERD, hyperparathyroidism, DDD, OA, gout, BEN on CPAP initially presented to [facility] for n/v and chest pain, transferred to [facility] for LHC/PCI, who presented to CCU s/p complex PCI with impella and intubated. SUBJECTIVE Overnight: - Impella removed -[place] removed -Veletri weaned off -Tube feeds started -Triglycerides in 400s so propofol weaned, precedex started; Overnight, rosa to 40s, precedex weaned but pt continued to be restless, trying to sit up, so versed was started -Hypotensive overnight, maps in 40s, levo+vaso gtt started, pt also spiked white count to 17 and was hypothermic to 35.3 so he was recultured and vanc was started. UF rate slowed to 100 given hypotension. Levo weaned off, vaso weaned to 0.02 -Weaned Fio2 to 70% overnight, PEEP to 10 Brief Plan Updates: MEDICATIONS Scheduled Meds: Scheduled Meds:[Held by Provider] amLODIPine, 10 mg, oral, Daily aspirin, 81 mg, feeding tube, Daily atorvastatin, 80 mg, feeding tube, Daily calcitRIOL, 0.25 mcg, feeding tube, Daily [Held by Provider] calcium acetate(phosphat bind), 667 mg, oral, QID chlorhexidine, 15 mL, mouth/throat, BID [Held by Provider] cloNIDine, 0.1 mg, oral, BID clopidogreL, 75 mg, feeding tube, Daily docusate, 100 mg, feeding tube, Daily [Held by Provider] ergocalciferol, 50,000 Units, oral, Weekly ezetimibe, 10 mg, feeding tube, Daily [Held by Provider] hydrALAZINE, 100 mg, oral, Q8H insulin glargine, 33 Units, subcutaneous, QAM insulin lispro, 0-10 Units, subcutaneous, Q4H ASHLEY [Held by Provider] isosorbide mononitrate ER, 30 mg, oral, Daily meropenem, 1,000 mg, intravenous, Q12H ASHLEY [Held by Provider] metoprolol tartrate, 12.5 mg, oral, Q6H [Held by Provider] nystatin, 500,000 Units, swish & spit, QID pantoprazole, 40 mg, intravenous, BID polyethylene glycol, 17 g, feeding tube, BID [Held by Provider] ranolazine ER, 500 mg, oral, BID senna, 1 tablet, feeding tube, Daily [Held by Provider] terazosin, 2 mg, oral, Nightly vancomycin, 15 mg/kg, intravenous, Q24H vasopressin, , , Continuous Infusions:dexmedeTOMIDine, 0-1.5 mcg/kg/hr, Last Rate: Stopped (06/10/22 230) fentaNYL, 0-400 mcg/hr, Last Rate: 200 mcg/hr (06/11/22199) midazolam, 0-12 mg/hr, Last Rate: 1.5 mg/hr (06/11/22199) nitroglycerin, 0-400 mcg/min, Last Rate: Stopped (06/05/222099) norepinephrine, 0-2 mcg/kg/min (Dosing Weight), Last Rate: 0.03 mcg/kg/min (06/11/22199) NxStage 4-potassium/2.5-calcium, 1,400 mL/hr, Last Rate: 1,400 mL/hr (06/10/221720) NxStage 4-potassium/2.5-calcium, 1,400 mL/hr, Last Rate: 1,400 mL/hr (06/10/221719) propofol, 0-50 mcg/kg/min, Last Rate: 30 mcg/kg/min (06/11/22199) sodium chloride 0.9%, 10 mL/hr, Last Rate: 10 mL/hr (06/10/221699) sodium chloride 0.9%, 10 mL/hr, Last Rate: 10 mL/hr (06/09/22699) sodium chloride 0.9%, 10 mL/hr sodium chloride 0.9%, 10 mL/hr, Last Rate: 10 mL/hr (06/09/22699) sodium chloride 0.9%, 6 mL/hr, Last Rate: 6 mL/hr (06/10/221699) sodium chloride 0.9%, 1,000 mL sodium chloride 0.9%, 3-12 mL/hr sodium chloride 0.9%, 3-12 mL/hr sodium chloride 0.9%, 3-12 mL/hr, Last Rate: 3 mL/hr (06/11/22199) vasopressin, 0-0.06 Units/min, Last Rate: 0.02 Units/min (06/11/22199) PRN Meds:. acetaminophen albuterol HFA bisacodyL bisacodyl EC dextrose OR dextrose dextrose 5% water dextrose 5% water fentaNYL fentaNYL fluticasone propionate glucagon Dialysis Access Care AND heparin lidocaine ondansetron ODT OR ondansetron phenoL polyethylene glycol ramelteon sodium chloride 0.9% PRN Meds: acetaminophen albuterol HFA bisacodyL bisacodyl EC dextrose OR dextrose dextrose 5% water dextrose 5% water fentaNYL fentaNYL fluticasone propionate glucagon Dialysis Access Care AND heparin lidocaine ondansetron ODT OR ondansetron phenoL polyethylene glycol ramelteon sodium chloride 0.9% OBJECTIVE Vitals: Vitals: 06/11/22 0200 BP: Pulse: 65 Resp: 20 Temp: (!) 35.4 ??C (95.7 ??F) SpO2: 94% Input and Output: Intake/Output Summary (Last 24 hours) at 06/11/2022 0246 Last data filed at 06/11/2022 0200 Gross per 24 hour Intake 2432.94 ml Output 4302 ml Net -1869.06 ml Ventilator Settings: 20/500/80/12 Physical Exam: General: Intubated and sedated Eyes: PERRL. Sclera nonicteric. ENT: MMM. ETT in place. Trialysis line in L neck. Cardiac: Regular rate and rhythm. Pulm: On ventilator. Soft crackles throughout lung charles GI/Abd: Soft, obese, nondistended, BS positive Lymphatic: No significant LAD Extremities: No peripheral cyanosis. 2+ pitting edema Skin: No rash or bruises Neuro: Sedated on ventilator. PERRL. LABORATORY DATA CBC Recent Labs Lab Units 06/10/222226 WBC K/cumm 17.2* HEMOGLOBIN g/dL 9.0* HEMATOCRIT % 27.0* PLATELETS K/cumm 274 NEUTROS PCT % 75.6 LYMPHS PCT % 7.6 MONOS PCT % 8.5 EOS PCT % 4.2 Chem Recent Labs Lab Units 06/11/22 0049 06/10/22222706/10/222226 SODIUM mmol/L -- -- 136 POTASSIUM PLASMA mmol/L -- -- 4.9 CHLORIDE mmol/L -- -- 99 CO2 mmol/L -- -- 25 ANIONGAP mmol/L -- -- 12 BUN SERUM mg/dL -- -- 20 CREATININE mg/dL -- -- 2.33* GLUCOSE mg/dL -- -- 158 POC GLUCOSE MONITOR mg/dL 165 < > -- CALCIUM mg/dL -- -- 8.6 < > = values in this interval not displayed. LFTs Recent Labs Lab Units 06/10/22 2227 ALK PHOS Units/L 216* BILIRUBIN TOTAL mg/dL 1.0 TOTAL PROTEIN g/dL 6.2* ALT Units/L 49 AST Units/L 114* Coags Recent Labs Lab Units 06/09/22 2033 06/05/22 1834 06/05/22 1554 APTT sec 92* < > 45* INR -- -- 1.0 < > = values in this interval not displayed. Cardiac Enzymes No results found for: TROPONINT Lab Results Lab Value Date/Time TROPONINI 0.03 03/21/2017 2232 TROPONINI 0.03 03/21/2017 0715 TROPONINI <0.03 11/06/2013 0612 TROPONINI <0.03 11/05/2013 2147 TROPONINI <0.03 11/05/2013 1430 TROPONINI <0.03 11/05/2013 0937 Urine Analysis Recent Labs Lab Units 06/09/22 0408 COLOR U Yellow CLARITY U Clear SPEC GRAV U 1.018 PH, URINE 5.5 PROTEIN UR QL 1+* GLUCOSE URQL 4+* KETONES UR Negative BLOOD UR 2+* NITRITE UR Negative LEUKOCYTE ESTERASE UR Negative ABG Recent Labs Lab Units 06/10/22 2227 PH ART 7.39 PCO2 ART mmHg 37 PO2 ART mmHg 98 HCO3 ART (CALC) mmol/L 23 BASE EXC ART mmol/L -2 O2 SAT ART (UYEN) % 97* Screening Labs: Iron Studies Recent Labs Lab Units 06/07/221999 IRON mcg/dL 50 TIBC mcg/dL 130* Recent Labs Lab Units 06/07/221999 FERRITIN ng/mL 2,062* Cholesterol Recent Labs Lab Units 06/04/222251 CHOLESTEROL mg/dL 149 Hgb A1C Recent Labs Lab Units 06/04/222251 HEMOGLOBIN A1C % 7.8* Radiology and Other Diagnostics: XR Chest 1 View Result Date: 06/06/2022 The current study is compared with the prior radiograph dated 06/05/2022 3:14 PM. The cardiomediastinal silhouette is stable. There are persistent diffuse bilateral airspace opacities compatible withmoderate to severe pulmonary edema. The extent of the opacities is similar to slightly increased compared to the prior examination. No definite pleural effusion, though the left costophrenic angle isexcluded. No pneumothorax. Dictated by: Jersey Morales MD The radiology attending physician has personally reviewed this study, and had reviewed and/or edited this written report and agrees with it. Electronically signed by: Saurav Emerson M.D. TTE (06/08/22): SUMMARY: s/p Impella placement across the aortic valve into the LV cavity. HR 48 bpm. Pacer wire in the RA and RV. LV cavity size is moderately dilated Eccentric LV hypertrophy. Mild hypokientsis in anterior wall and anterior septem sugegsting CAD/[place] in the LAD territory. LVEF is in normal range 56%. Impaired LV relaxation. LA is mildly dilated. Mildly dilated RV cavity size with normal RV systolic function. Mildly dilated RA size. Normal Inferior vena cava. Normal aortic root. Mils to mod AR. Trace TR. PASP= 23 mm Hg +RAP. ASSESSMENT and PLAN Adelia Garvin Jr. is a 51 y.o. male with a history of CHF (EF 50% 2017), Afib (not on AC), HTN, CAD s/p stent 04/06 and 3 stent 12/07, T1DM (insulin pump at home), ESRD on PD, HLD, GERD, hyperparathyroidism, DDD, OA, gout, BEN on CPAP initially presented to [facility] for n/v and chest pain, transferred to [facility] for LHC/PCI, who presented to the CCU s/p complex PCI complicated by hypoxemic respiratory failure requiring intubation, impella support, veletri gtt. Active Issues: NEURO #Sedation On propofol, fentanyl, versed gtt CARDIAC #Septic shock #Leukocytosis Increasing pressor requirement, white count, hypothermia overnight 06/10 concerning for septic shock. Distributive shock from RP bleed vs cardiogenic shock also possible -CXR -Vanc(06/11-), kaylah (06/05-) -Echo -serial SCVO2 -CT C/A/P; will need to call radiology for pretreatment protocol given contrast allergy -Repeat UA, blood cx, tracheal aspirate cx #Cardiogenic shock #NSTEMI s/p complex PCI #CAD S/p complex PCI to the LCx and OM, impella placed and pt was intubated and transferred to the CCU. Etiology of decompensation likely flash pulmonary edema leading to acute hypoxic respiratory distress. Impella removed and veletri weaned off 06/10/22. - continue cvvhd for fluid removal - daily cxr - continue dapt, atorva #Afib Not on anticoagulation at home. CHADsVasc 4 - holding home metoprolol given cardiogenic shock. 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 Etiology of respiratory decompensation likely flash pulmonary edema, ARDS also possible. Less likely but also possible PNA. Arrived to CCU on ventilator settings: 34/500/90/15, not requiring pressors. Has been stable at 20/50/70/12 for several days while impella, veletri have been weaning. Now off veletri. - wean ventilator settings as tolerated -CVVHD for fluid removal per renal recs - pulmonary following, recs appreciated RENAL #ESRD on PD #Volume overload Presented to CCU in AHRF likely s/t volume overload. - continue cvvhd - renal following, recs appreciated GI #Cholecystitis Patient with CT CAP and RUQ US c/f cholecystitis at OSH. Has been unable to get HIDA scan due to decompensation. - HIDA scan when stable -CT C/A/P as above - continue IV Abx: meropenem, vanc - gen surg consulted: recommended against surgical procedure or perc cholesystostomy ENDO #T1DM #DKA - resolved Pt has T1DM; has insulin pump at home. Prior to intubation was on lantus 33u qam, humalog 9u tidac,resistant correctional humalog tidac, hs. In CCU, patient with DKA: BG in 300s, AG 21, K 3.3, BHB 2.3, ABG with pCO2 27. Treated with insulin gtt, D5, and K repletion. Labs improved to BG 100s, AG 10, K 4.0, BHB 0.1, pCO2 37. - continue basal insulin 33 units - continue resistant SSI q4h - TF started, appreciate endo recs HEME/ONC #Anemia Hgb 9.5 on admission to [facility] and 7.8 on arrival to CCU. Hgb subsequently measured at 4.3, but actually 7.5 on re-draw. Received consent for blood transfusion if necessary from patient's brother. - transfuse for Hgb <7 - maintain active T&S - CTM H/H Checklist [] Central Line/ PICC: PAC, trialysis [] DVT PPX: heparin gtt [] PUD PPX: IV 40 pantoprazole BID [] Glucose Control: glargine 33U, SSI q4h [] Weaning/Extubation: on vent, wean as able [] HOB >30 [] Sedation: propofol 20 [] Volume Status: FBG neg [] Medication Reviewed [] Nutrition: NG placed, currently sedated/on vent [] PT/OT: not consulted as patient intubated/sedated [] AM Labs: ordered [] Invasive Devices: Impella CP [] External urinary Catheter: placed 06/08 [] Family Updated: called evening 06/07 [] Code Status: Full Code Attending MD to make comment on patient risk/complexity. Jeffrey Green MD Resident Physician, Internal Medicine Cosigned by Rufino Flores MD at 06/11/2022 12:56 PM CDT Associated attestation - Rufino Flores MD - 06/11/2022 12:56 PM CDT Critical Care Time: I have spent 35 minutes in full attendance with this critically ill patient making frequent reassessments and decisions regarding this patient's complex medical care. Critical care time was exclusive of separately billable procedures, treating other patients and teaching time. Critical care was necessary to treat or prevent imminent or life-threatening deterioration of the following conditions: 1( acute hypoxemic respiratory failure 2) cardiogenic shock Recommendations for treatment include: 1( acute hypoxemic respiratory failure. Patient is net negative several L and has a slowly improving oxygen requirement. Pulmonology felt this was not consistent with ARDS but just pulmonary edema. -continue volume removal with CVVHD 2) Mixed cardiogenic/distributive shock. - Patient has had stable cardiac output despite decreasing his Impella to P2; Removed Impella 06/10/2022, hemodynamics stable - Degree of decompensation out of proportion to cardiac etiology - Concern for mixed shock, likely a distributive/septic component from possible cholecystitis vs pneumonia (both suspected on initial CT imaging) vs line infection vs aspiration PNA - Trach aspirate, abdominal CT vs LUQ US, broadened antibiotics, cultures sent - Abdominal CT will also be pursued if Hgb further drops given suspicion for RP bleed (recent impella removal) - continue supportive care - Serial lactates, surrogates of perfusion 3) Agitation - Weaning propofol given elevated TG; transition attempt to precedex or fentanyl/versed combination - Trend lipases given elevated TG with propofol 4) CAD/Afib - DAPT and systemic AC will be needed; awaiting stability in hemodynamics, hgb levels, and CT investigation above - Preference for at least 7 days of triple therapy, followed by DOAC +P2Y12 therapy if possible to decrease bleeding risk Attending Documentation: I have seen and examined this patient on the day of service. I have reviewed and confirmed the history, physical exam, laboratory and radiographic data with the house staff as documented in the ICU resident note. I have reviewed and discussed my treatment plan with the ICU team and other medical/investigations consultant staff. * Tyra De La Torre MD - 06/10/2022 12:46 PM CDT CCU DAILY PROGRESS Patient: Adelia Garvin Jr. Room: [facility] CARDIAC CATH ROOM/NO* Date: 06/10/2022 Summary Statement: Adelia Garvin Jr. is a 51 y.o. male with a history of CHF (EF 50% 2016), Afib (not on AC), HTN, CAD s/p stent 04/06 and 3 stent 12/07, T1DM (insulin pump at home), ESRD on PD, HLD, GERD, hyperparathyroidism, DDD, OA, gout, BEN on CPAP initially presented to OSH for n/v and chest pain, transferred to [facility] for LHC/PCI, who presented to CCU s/p complex PCI with impella and intubated. SUBJECTIVE Overnight: - CVVHD with 5 L removed for net negative 3.5 L - weaned impella to P2, veletri to 2 - vent settings unchanged: RR 20 / Vt 500 / FiO2 70, PEEP 12 Brief Plan Updates: - continue cvvhd - remove impella today, stop heparin prior - start tube feeds once impella removed - stop veletri - wean FiO2 as able - continue meropenem MEDICATIONS Scheduled Meds: Scheduled Meds:[Held by Provider] amLODIPine, 10 mg, oral, Daily [MAR Hold] aspirin, 81 mg, feeding tube, Daily [OCT Hold] atorvastatin, 80 mg, feeding tube, Daily [MAR Hold] calcitRIOL, 0.25 mcg, feeding tube, Daily [Held by Provider] calcium acetate(phosphat bind), 667 mg, oral, QID [MAR Hold] chlorhexidine, 15 mL, mouth/throat, BID [Held by Provider] cloNIDine, 0.1 mg, oral, BID [MAR Hold] clopidogreL, 75 mg, feeding tube, Daily [OCT Hold] docusate, 100 mg, feeding tube, Daily [Held by Provider] ergocalciferol, 50,000 Units, oral, Weekly [MAR Hold] ezetimibe, 10 mg, feeding tube, Daily [Held by Provider] hydrALAZINE, 100 mg, oral, Q8H [MAR Hold] insulin glargine, 33 Units, subcutaneous, QAM [MAR Hold] insulin lispro, 0-10 Units, subcutaneous, Q4H ASHLEY [Held by Provider] isosorbide mononitrate ER, 30 mg, oral, Daily [MAR Hold] meropenem, 1,000 mg, intravenous, Q12H ASHLEY [Held by Provider] metoprolol tartrate, 12.5 mg, oral, Q6H [Held by Provider] nystatin, 500,000 Units, swish & spit, QID [MAR Hold] pantoprazole, 40 mg, intravenous, BID [MAR Hold] polyethylene glycol, 17 g, feeding tube, BID [Held by Provider] ranolazine ER, 500 mg, oral, BID [MAR Hold] senna, 1 tablet, feeding tube, Daily [Held by Provider] terazosin, 2 mg, oral, Nightly Continuous Infusions:dextrose 10%, 10 mL/hr, Last Rate: 10 mL/hr (06/10/22 1000) [Held by Provider] epoprostenol, 40 mcg/hr, Last Rate: Stopped (06/10/22 0956) fentaNYL, 0-400 mcg/hr, Last Rate: 0 mcg/hr (06/10/22 1140) impella purge solution infusion, 0-30 mL/hr, Last Rate: 15.4 mL/hr (06/10/22 1000) heparin, 0-33 Units/kg/hr, Last Rate: Stopped (06/10/22 1034) nitroglycerin, 0-400 mcg/min, Last Rate: Stopped (06/05/22 2100) norepinephrine, 0-2 mcg/kg/min (Dosing Weight), Last Rate: Stopped (06/08/22 0745) NxStage 4-potassium/2.5-calcium, 1,400 mL/hr, Last Rate: 1,400 mL/hr (06/10/22 0905) NxStage 4-potassium/2.5-calcium, 1,400 mL/hr, Last Rate: 1,400 mL/hr (06/10/22 0905) propofol, 0-50 mcg/kg/min, Last Rate: 50 mcg/kg/min (06/10/22 1006) sodium chloride 0.9%, 10 mL/hr, Last Rate: 10 mL/hr (06/10/22 1000) sodium chloride 0.9%, 10 mL/hr, Last Rate: 10 mL/hr (06/09/22 0700) sodium chloride 0.9%, 10 mL/hr sodium chloride 0.9%, 10 mL/hr, Last Rate: 10 mL/hr (06/09/22 0700) sodium chloride 0.9%, 6 mL/hr, Last Rate: 6 mL/hr (06/10/22 1000) [MAR Hold] sodium chloride 0.9%, 1,000 mL sodium chloride 0.9%, 3-12 mL/hr sodium chloride 0.9%, 3-12 mL/hr sodium chloride 0.9%, 3-12 mL/hr, Last Rate: 3 mL/hr (06/10/22 1000) PRN Meds:. [MAR Hold] acetaminophen [MAR Hold] albuterol HFA [MAR Hold] bisacodyL [MAR Hold] bisacodyl EC [MAR Hold] dextrose OR [MAR Hold] dextrose [MAR Hold] dextrose 5% water [OCT Hold] dextrose 5% water [OCT Hold] fentaNYL [OCT Hold] fentaNYL [OCT Hold] fluticasone propionate [OCT Hold] glucagon Dialysis Access Care AND [OCT Hold] heparin [OCT Hold] heparin OR [OCT Hold] heparin [OCT Hold] lidocaine [OCT Hold] ondansetron ODT OR [OCT Hold] ondansetron [OCT Hold] phenoL [OCT Hold] polyethylene glycol [OCT Hold] ramelteon [Oct] sodium chloride 0.9% PRN Meds: [OCT Hold] acetaminophen [OCT Hold] albuterol HFA [OCT Hold] bisacodyL [OCT Hold] bisacodyl EC [Oct] dextrose OR [Oct] dextrose [OCT Hold] dextrose 5% water [OCT Hold] dextrose 5% water [OCT Hold] fentaNYL [OCT Hold] fentaNYL [OCT Hold] fluticasone propionate [OCT Hold] glucagon Dialysis Access Care AND [Oct] heparin [OCT Hold] heparin OR [OCT Hold] heparin [OCT Hold] lidocaine [OCT Hold] ondansetron ODT OR [OCT Hold] ondansetron [Oct] phenoL [Oct] polyethylene glycol [Oct] ramelteon [Oct] sodium chloride 0.9% OBJECTIVE Vitals: Vitals: 06/10/22 1133 BP: Pulse: 67 Resp: Temp: SpO2: 97% Input and Output: Intake/Output Summary (Last 24 hours) at 06/10/2022 1246 Last data filed at 06/10/2022 1000 Gross per 24 hour Intake 2420.18 ml Output 5810 ml Net -3389.82 ml Ventilator Settings: 20/500/80/12 Physical Exam: General: Intubated and sedated Eyes: PERRL. Sclera nonicteric. ENT: MMM. ETT in place. Trialysis line in L neck. Cardiac: Regular rate and rhythm. Pulm: On ventilator. GI/Abd: Soft, obese, nondistended, BS positive Lymphatic: No significant LAD Extremities: No peripheral cyanosis. 2+ pitting edema Skin: No rash or bruises Neuro: Sedated on ventilator. PERRL. LABORATORY DATA CBC Recent Labs Lab Units 10/21/22 0752 WBC K/cumm 10.2* HEMOGLOBIN g/dL 8.3* HEMATOCRIT % 25.1* PLATELETS K/cumm 201 NEUTROS PCT % 65.5 LYMPHS PCT % 13.4 MONOS PCT % 8.8 EOS PCT % 2.6 Chem Recent Labs Lab Units 06/10/22 0754 06/10/22 0752 SODIUM mmol/L -- 135 POTASSIUM PLASMA mmol/L -- 4.3 CHLORIDE mmol/L -- 100 CO2 mmol/L -- 26 ANIONGAP mmol/L -- 9 BUN SERUM mg/dL -- 20 CREATININE mg/dL -- 2.44* GLUCOSE mg/dL -- 138 POC GLUCOSE MONITOR mg/dL 138 -- CALCIUM mg/dL -- 8.4* LFTs Recent Labs Lab Units 06/10/22 0752 ALK PHOS Units/L 169* BILIRUBIN TOTAL mg/dL 0.8 TOTAL PROTEIN g/dL 6.2* ALT Units/L 45 AST Units/L 117* Coags Recent Labs Lab Units 06/09/22 2033 06/05/22 1834 06/05/22 1554 APTT sec 92* < > 45* INR -- -- 1.0 < > = values in this interval not displayed. Cardiac Enzymes No results found for: TROPONINT Lab Results Lab Value Date/Time TROPONINI 0.03 03/21/2017 2232 TROPONINI 0.03 03/21/2017 0715 TROPONINI <0.03 11/06/2013 0612 TROPONINI <0.03 11/05/2013 2147 TROPONINI <0.03 11/05/2013 1430 TROPONINI <0.03 11/05/2013 0937 Urine Analysis Recent Labs Lab Units 06/09/22 0408 COLOR U Yellow CLARITY U Clear SPEC GRAV U 1.018 PH, URINE 5.5 PROTEIN UR QL 1+* GLUCOSE URQL 4+* KETONES UR Negative BLOOD UR 2+* NITRITE UR Negative LEUKOCYTE ESTERASE UR Negative ABG Recent Labs Lab Units 06/10/22 0752 PH ART 7.46* PCO2 ART mmHg 34* PO2 ART mmHg 99 HCO3 ART (CALC) mmol/L 25 BASE EXC ART mmol/L 1 O2 SAT ART (UYEN) % 98* Screening Labs: Iron Studies Recent Labs Lab Units 06/07/22 2000 IRON mcg/dL 50 TIBC mcg/dL 130* Recent Labs Lab Units 06/07/221999 FERRITIN ng/mL 2,062* Cholesterol Recent Labs Lab Units 06/04/22 2252 CHOLESTEROL mg/dL 149 Hgb A1C Recent Labs Lab Units 06/04/22 225 HEMOGLOBIN A1C % 7.8* Radiology and Other Diagnostics: XR Chest 1 View Result Date: 06/06/2022 The current study is compared with the prior radiograph dated 06/05/2022 3:14 PM. The cardiomediastinal silhouette is stable. There are persistent diffuse bilateral airspace opacities compatible withmoderate to severe pulmonary edema. The extent of the opacities is similar to slightly increased compared to the prior examination. No definite pleural effusion, though the left costophrenic angle isexcluded. No pneumothorax. Dictated by: Jersey Morales MD The radiology attending physician has personally reviewed this study, and had reviewed and/or edited this written report and agrees with it. Electronically signed by: Saurav Emerson M.D. TTE (06/08/22): SUMMARY: s/p Impella placement across the aortic valve into the LV cavity. HR 48 bpm. Pacer wire in the RA and RV. LV cavity size is moderately dilated Eccentric LV hypertrophy. Mild hypokientsis in anterior wall and anterior septem sugegsting CAD/NY in the LAD territory. LVEF is in normal range 56%. Impaired LV relaxation. LA is mildly dilated. Mildly dilated RV cavity size with normal RV systolic function. Mildly dilated RA size. Normal Inferior vena cava. Normal aortic root. Mils to mod AR. Trace TR. PASP= 23 mm Hg +RAP. ASSESSMENT and PLAN Adelia Garvin Jr. is a 51 y.o. male with a history of CHF (EF 50% 2017), Afib (not on AC), HTN, CAD s/p stent 04/06 and 3 stent 12/07, T1DM (insulin pump at home), ESRD on PD, HLD, GERD, hyperparathyroidism, DDD, OA, gout, BEN on CPAP initially presented to [facility] for n/v and chest pain, transferred to [facility] for LHC/PCI, who presented to the CCU s/p complex PCI with impella and intubated. Active Issues: #Cardiogenic shock #NSTEMI s/p complex PCI #CAD S/p complex PCI to the LCx and OM, impella placed and pt was intubated and transferred to the CCU. Etiology of decompensation likely flash pulmonary edema leading to acute hypoxic respiratory distress. 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 Etiology of respiratory decompensation likely flash pulmonary edema, ARDS also possible. Less likely but also possible PNA. Arrived to CCU on ventilator settings: 34/500/90/15, not requiring pressors. Has been stable at 20/50/70/12 for several days while impella, veletri have been weaning. - wean ventilator settings as tolerated - pulmonary following, recs appreciated #ESRD on PD #Volume overload Presented to CCU in AHRF likely s/t volume overload. - continue cvvhd - renal following, recs appreciated #Cholecystitis Patient with CT CAP and RUQ US c/f cholecystitis at OSH. Has been unable to get HIDA scan due to decompensation. - HIDA scan when stable - continue IV Abx: meropenem - gen surg consulted: recommended against surgical procedure or perc cholesystostomy Other admission issues: ENDO #T1DM #DKA - resolved Pt has T1DM; has insulin pump at home. Prior to intubation was on lantus 33u qam, humalog 9u tidac,resistant correctional humalog tidac, hs. In CCU, patient with DKA: BG in 300s, AG 21, K 3.3, BHB 2.3, ABG with pCO2 27. Treated with insulin gtt, D5, and K repletion. Labs improved to BG 100s, AG 10, K 4.0, BHB 0.1, pCO2 37. - continue basal insulin 33 units - continue resistant SSI q4h - plan to start TF after impella removal; can remove D10 at this time - hold mealtime insulin NEURO #Sedation On propofol, fentanyl gtt CV #HFrEF TTE (2016): EF 50% Holding home hydral/imdur/lasix -repeat TTE #Afib Not on anticoagulation at home. - holding home metoprolol given cardiogenic shock. - heparin gtt HEME/ONC #Anemia Hgb 9.5 on admission to [facility] and 7.8 on arrival to CCU. Hgb subsequently measured at 4.3, but actually 7.5 on re-draw. Received consent for blood transfusion if necessary from patient's brother. - transfuse for Hgb <7 - maintain active T&S - CTM H/H Checklist [] Central Line/ PICC: PAC, trialysis [] DVT PPX: heparin gtt [] PUD PPX: IV 40 pantoprazole BID [] Glucose Control: glargine 33U, SSI q4h [] Weaning/Extubation: on vent, wean as able [] HOB >30 [] Sedation: propofol 20 [] Volume Status: FBG neg [] Medication Reviewed [] Nutrition: NG placed, currently sedated/on vent [] PT/OT: not consulted as patient intubated/sedated [] AM Labs: ordered [] Invasive Devices: Impella CP [] External urinary Catheter: placed 06/08 [] Family Updated: called evening 06/07 [] Code Status: Full Code Attending MD to make comment on patient risk/complexity. Tyra De La Torre MD Resident Physician, Internal Medicine Cosigned by Eric Reed MD at 06/10/2022 1:52 PM CDT Associated attestation - Eric Reed MD - 06/10/2022 1:52 PM CDT Critital Care Services: Total Time Spent 35 minutes. Date:06/10/22 Critical Care Time: I have spent 35 minutes in full attendance with this critically ill patient making frequent reassessments and decisions regarding this patient's complex medical care. Critical care time was exclusive of separately billable procedures, treating other patients and teaching time. Critical care was necessary to treat or prevent imminent or life-threatening deterioration of the following conditions: 1( acute hypoxemic respiratory failure 2) cardiogenic shock Recommendations for treatment include: 1( acute hypoxemic respiratory failure. Patient is net negative several L and has a slowly improving oxygen requirement. Pulmonology felt this was not consistent with ARDS but just pulmonary edema. -continue volume removal -main pulmonary vasodilators and continue PT 2) cardiogenic shock. Patient has had stable cardiac output despite decreasing his Impella to P2. -remove Impella today -continue supportive care Attending Documentation: I have seen and examined this patient on the day of service. I have reviewed and confirmed the history, physical exam, laboratory and radiographic data with the house staff as documented in the ICU resident note. I have reviewed and discussed my treatment plan with the ICU team and other medical/investigations consultant staff. * Lavern Morrison MD - 06/09/2022 6:31 AM CDT CCU DAILY PROGRESS Patient: Adelia Garvin Jr. Room: [id number] Date: 06/09/2022 Summary Statement: Adelia Garvin Jr. is a 51 y.o. male with a history of CHF (EF 50% 2016), Afib (not on AC), HTN, CAD s/p stent 04/06 and 3 stent 12/07, T1DM (insulin pump at home), ESRD on PD, HLD, GERD, hyperparathyroidism, DDD, OA, gout, BEN on CPAP initially presented to OSH for n/v and chest pain, transferred to [facility] for LHC/PCI, who presented to CCU s/p complex PCI with impella and intubated. SUBJECTIVE Overnight: -CVVHD with 3.92 L removed for net negative 1.25 L -Vent settings unchanged: RR 20 / Vt 500 / FiO2 80, PEEP 12 -Weaned veletri from 8 ml/hr to 6 ml/hr. Patient desaturating down to 90 with attempt to wean to 4 ml/hr, so increased back to 6 ml/hr -TTE: Impella in place. LVEF 56% with moderately dilated LV hypertrophy and mild hypokinesis in anterior wall/septum. Impaired LV relaxation. Mild LAE. Mildly dilated RV and RA. Normal IVC. Mild TR. -Episode of possible vfib/torsades this AM at 7:08am and NSVT yesterday afternoon x2 (25-40 beats) at 4:20pm -CXR this AM with interval increased opacity of left lung Brief Plan Updates: -Repeat CXR -Pulmonary consult -FBG: -1L -Wean veletri as tolerated -Wean vent as tolerated -Wean impella as tolerated -Continue meropenem MEDICATIONS Scheduled Meds: Scheduled Meds:[Held by Provider] amLODIPine, 10 mg, oral, Daily aspirin, 81 mg, feeding tube, Daily atorvastatin, 80 mg, feeding tube, Daily calcitRIOL, 0.25 mcg, feeding tube, Daily [Held by Provider] calcium acetate(phosphat bind), 667 mg, oral, QID chlorhexidine, 15 mL, mouth/throat, BID [Held by Provider] cloNIDine, 0.1 mg, oral, BID clopidogreL, 75 mg, feeding tube, Daily docusate, 100 mg, feeding tube, Daily [Held by Provider] ergocalciferol, 50,000 Units, oral, Weekly ezetimibe, 10 mg, feeding tube, Daily [Held by Provider] hydrALAZINE, 100 mg, oral, Q8H insulin glargine, 33 Units, subcutaneous, QAM insulin lispro, 0-10 Units, subcutaneous, Q4H ASHLEY [Held by Provider] isosorbide mononitrate ER, 30 mg, oral, Daily meropenem, 1,000 mg, intravenous, Q12H ASHLEY [Held by Provider] metoprolol tartrate, 12.5 mg, oral, Q6H [Held by Provider] nystatin, 500,000 Units, swish & spit, QID pantoprazole, 40 mg, intravenous, BID polyethylene glycol, 17 g, feeding tube, Daily [Held by Provider] ranolazine ER, 500 mg, oral, BID [Held by Provider] terazosin, 2 mg, oral, Nightly Continuous Infusions:dextrose 10%, 10 mL/hr, Last Rate: 10 mL/hr (06/09/22599) epoprostenol, 120 mcg/hr, Last Rate: 120 mcg/hr (06/09/22614) fentaNYL, 0-400 mcg/hr, Last Rate: 150 mcg/hr (06/09/22599) impella purge solution infusion, 0-30 mL/hr, Last Rate: 16.1 mL/hr (06/09/22599) heparin, 0-33 Units/kg/hr, Last Rate: 9 Units/kg/hr (06/09/22599) nitroglycerin, 0-400 mcg/min, Last Rate: Stopped (06/05/22 2100) norepinephrine, 0-2 mcg/kg/min (Dosing Weight), Last Rate: Stopped (06/08/22 0745) NxStage 4-potassium/2.5-calcium, 1,400 mL/hr, Last Rate: 1,400 mL/hr (06/09/22 0357) NxStage 4-potassium/2.5-calcium, 1,400 mL/hr, Last Rate: 1,400 mL/hr (06/09/22 0356) propofol, 0-50 mcg/kg/min, Last Rate: 40 mcg/kg/min (06/09/22599) sodium chloride 0.9%, 10 mL/hr, Last Rate: 10 mL/hr (06/09/22599) sodium chloride 0.9%, 10 mL/hr, Last Rate: 10 mL/hr (06/09/22599) sodium chloride 0.9%, 10 mL/hr sodium chloride 0.9%, 10 mL/hr, Last Rate: 10 mL/hr (06/09/22599) sodium chloride 0.9%, 6 mL/hr, Last Rate: 6 mL/hr (06/09/22599) sodium chloride 0.9%, 1,000 mL sodium chloride 0.9%, 3-12 mL/hr sodium chloride 0.9%, 3-12 mL/hr sodium chloride 0.9%, 3-12 mL/hr, Last Rate: Stopped (06/07/22 190) PRN Meds:. acetaminophen albuterol HFA bisacodyL bisacodyl EC dextrose OR dextrose dextrose 5% water dextrose 5% water fentaNYL fentaNYL fluticasone propionate glucagon Dialysis Access Care AND heparin heparin OR heparin lidocaine ondansetron ODT OR ondansetron phenoL polyethylene glycol ramelteon sodium chloride 0.9% PRN Meds: acetaminophen albuterol HFA bisacodyL bisacodyl EC dextrose OR dextrose dextrose 5% water dextrose 5% water fentaNYL fentaNYL fluticasone propionate glucagon Dialysis Access Care AND heparin heparin OR heparin lidocaine ondansetron ODT OR ondansetron phenoL polyethylene glycol ramelteon sodium chloride 0.9% OBJECTIVE Vitals: Vitals: 06/09/22 0600 BP: Pulse: (!) 46 Resp: 20 Temp: SpO2: 92% Input and Output: Intake/Output Summary (Last 24 hours) at 06/09/2022 0631 Last data filed at 06/09/2022 0600 Gross per 24 hour Intake 2665.87 ml Output 3920 ml Net -1254.13 ml Ventilator Settings: 20/500/80/12 Physical Exam: General: Intubated and sedated Eyes: PERRL. Sclera nonicteric. ENT: MMM. ETT in place. Trialysis line in L neck. Cardiac: Regular rate and rhythm. Pulm: On ventilator. GI/Abd: Soft, obese, nondistended, BS positive Lymphatic: No significant LAD Extremities: No peripheral cyanosis. 2+ pitting edema Skin: No rash or bruises Neuro: Sedated on ventilator. PERRL. LABORATORY DATA CBC Recent Labs Lab Units 06/08/22232606/08/222007 WBC K/cumm -- 9.3 HEMOGLOBIN g/dL 7.5* 6.9* HEMATOCRIT % 22.0* 19.9* PLATELETS K/cumm -- 207 NEUTROS PCT % -- 75.3 LYMPHS PCT % -- 10.0 MONOS PCT % -- 9.8 EOS PCT % -- 1.0 Chem Recent Labs Lab Units 06/09/22 0406 06/08/22 2325 06/08/222007 SODIUM mmol/L -- -- 136 POTASSIUM PLASMA mmol/L -- -- 4.3 CHLORIDE mmol/L -- -- 100 CO2 mmol/L -- -- 27 ANIONGAP mmol/L -- -- 9 BUN SERUM mg/dL -- -- 42* CREATININE mg/dL -- -- 4.73* GLUCOSE mg/dL -- -- 146 POC GLUCOSE MONITOR mg/dL 147 < > -- CALCIUM mg/dL -- -- 8.4* < > = values in this interval not displayed. LFTs Recent Labs Lab Units 06/08/222007 ALK PHOS Units/L 153* BILIRUBIN TOTAL mg/dL 0.5 TOTAL PROTEIN g/dL 5.8* ALT Units/L 40 AST Units/L 137* Coags Recent Labs Lab Units 06/09/22 0524 06/05/22 1834 06/05/22 1554 APTT sec 66* < > 45* INR -- -- 1.0 < > = values in this interval not displayed. Cardiac Enzymes No results found for: TROPONINT Lab Results Lab Value Date/Time TROPONINI 0.03 03/21/2017 2232 TROPONINI 0.03 03/21/2017 0715 TROPONINI <0.03 11/06/2013 0612 TROPONINI <0.03 11/05/2013 2147 TROPONINI <0.03 11/05/2013 1430 TROPONINI <0.03 11/05/2013 0937 Urine Analysis Recent Labs Lab Units 06/09/22 0408 COLOR U Yellow CLARITY U Clear SPEC GRAV U 1.018 PH, URINE 5.5 PROTEIN UR QL 1+* GLUCOSE URQL 4+* KETONES UR Negative BLOOD UR 2+* NITRITE UR Negative LEUKOCYTE ESTERASE UR Negative ABG Recent Labs Lab Units 06/09/22 0524 PH ART 7.44 PCO2 ART mmHg 38 PO2 ART mmHg 71* HCO3 ART (CALC) mmol/L 26 BASE EXC ART mmol/L 2 O2 SAT ART (UYEN) % 94 Screening Labs: Iron Studies Recent Labs Lab Units 06/07/22 2000 IRON mcg/dL 50 TIBC mcg/dL 130* Recent Labs Lab Units 06/07/221999 FERRITIN ng/mL 2,062* Cholesterol Recent Labs Lab Units 06/04/22 2252 CHOLESTEROL mg/dL 149 Hgb A1C Recent Labs Lab Units 06/04/22 2252 HEMOGLOBIN A1C % 7.8* Radiology and Other Diagnostics: XR Chest 1 View Result Date: 06/06/2022 The current study is compared with the prior radiograph dated 06/05/2022 3:14 PM. The cardiomediastinal silhouette is stable. There are persistent diffuse bilateral airspace opacities compatible withmoderate to severe pulmonary edema. The extent of the opacities is similar to slightly increased compared to the prior examination. No definite pleural effusion, though the left costophrenic angle isexcluded. No pneumothorax. Dictated by: Jersey Morales MD The radiology attending physician has personally reviewed this study, and had reviewed and/or edited this written report and agrees with it. Electronically signed by: Dorys Amaral (06/08/22): SUMMARY: s/p Impella placement across the aortic valve into the LV cavity. HR 48 bpm. Pacer wire in the RA and RV. LV cavity size is moderately dilated Eccentric LV hypertrophy. Mild hypokientsis in anterior wall and anterior septem sugegsting CAD/[place] in the LAD territory. LVEF is in normal range 56%. Impaired LV relaxation. LA is mildly dilated. Mildly dilated RV cavity size with normal RV systolic function. Mildly dilated RA size. Normal Inferior vena cava. Normal aortic root. Mils to mod AR. Trace TR. PASP= 23 mm Hg +RAP. ASSESSMENT and PLAN Adelia Garvin Jr. is a 51 y.o. male with a history of CHF (EF 50% 2017), Afib (not on AC), HTN, CAD s/p stent 04/06 and 3 stent 12/07, T1DM (insulin pump at home), ESRD on PD, HLD, GERD, hyperparathyroidism, DDD, OA, gout, BEN on CPAP initially presented to [facility] for n/v and chest pain, transferred to [facility] for LHC/PCI, who presented to the CCU s/p complex PCI with impella and intubated. Active Issues: CARDIOVASCULAR #Cardiogenic shock #NSTEMI s/p complex PCI #CAD S/p complex PCI to the LCx and OM, impella placed and pt was intubated and transferred to the CCU. Etiology of decompensation likely flash pulmonary edema leading to acute hypoxic respiratory distress. -TTE: Impella in place. LVEF 56% with moderately dilated LV hypertrophy and mild hypokinesis in anterior wall/septum. Impaired LV relaxation. Mild LAE. Mildly dilated RV and RA. Normal IVC. Mild TR. 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 Etiology of respiratory decompensation likely flash pulmonary edema, ARDS also possible. Less likely but also possible PNA. Arrived to CCU on ventilator settings: 34/500/90/15, not requiring pressors. -pCO2 improved on RR decreased to 20 -Patient desaturated on PEEP 10, increased to PEEP 12 -Vent settings: 20/500/80/12 -CXR this AM with significantly increased opacity of left lung -FBG negative -Repeat CXR -Pulmonary consult -Wean ventilator settings as tolerated RENAL #ESRD on PD #Volume overload Presented to CCU in AHRF likely s/t volume overload. -Renal consulted -Started on CVVHD -Held off on pulling off fluid as patient hypotensive to 70s-80s/50s-60s with PCWP ~16 -FBG negative GI #Cholecystitis Patient with CT CAP and RUQ US c/f cholecystitis at OSH. Has been unable to get HIDA scan due to decompensation. -Gen surg consulted: recommended against surgical procedure or Perc cholesystostomy. Recommended IVAbx and trending WBC, LFTs, lipase -HIDA scan when stable -Continue IV Abx: meropenem Other admission issues: ENDO #T1DM #DKA - resolved Pt has T1DM; has insulin pump at home. Prior to intubation was on lantus 33u qam, humalog 9u tidac,resistant correctional humalog tidac, hs. In CCU, patient with DKA: BG in 300s, AG 21, K 3.3, BHB 2.3, ABG with pCO2 27. Treated with insulin gtt, D5, and K repletion. Labs improved to BG 100s, AG 10, K 4.0, BHB 0.1, pCO2 37. -Insulin gtt d/c'd -Continue basal insulin 33 units -Continue resistant SSI q4h -Per endo: D10% 20 ml/hr as a source of calories; consider starting TF -Hold mealtime insulin NEURO #Sedation On propofol, fentanyl gtt CV #HFrEF TTE (2017): EF 50% Holding home hydral/imdur/lasix -repeat TTE #Afib Not on anticoagulation at home. -Holding home metoprolol given cardiogenic shock. -heparin gtt HEME/ONC #Anemia Hgb 9.5 on admission to [facility] and 7.8 on arrival to CCU. Hgb subsequently measured at 4.3, but actually 7.5 on re-draw. Received consent for blood transfusion if necessary from patient's brother. -Transfuse for Hgb <7 -Maintain active T&S -CTM H/H Checklist [] Central Line/ PICC: PAC, trialysis [] DVT PPX: heparin gtt [] PUD PPX: IV 40 pantoprazole BID [] Glucose Control: glargine 33U, SSI q4h [] Weaning/Extubation: on vent, wean as able [] HOB >30 [] Sedation: propofol 20 [] Volume Status: FBG neg [] Medication Reviewed [] Nutrition: NG placed, currently sedated/on vent [] PT/OT: not consulted as patient intubated/sedated [] AM Labs: ordered [] Invasive Devices: Impella CP [] External urinary Catheter: placed 06/08 [] Family Updated: called evening 06/07 [] Code Status: Full Code Attending MD to make comment on patient risk/complexity. Lavern Morrison MD Resident Physician, Internal Medicine Cosigned by Eric Reed MD at 06/09/2022 1:13 PM CDT Associated attestation - Eric Reed MD - 06/09/2022 1:13 PM CDT Critital Care Services: Total Time Spent 35 minutes. Date:06/09/22 Critical Care Time: I have spent 35 minutes in full attendance with this critically ill patient making frequent reassessments and decisions regarding this patient's complex medical care. Critical care time was exclusive of separately billable procedures, treating other patients and teaching time. Critical care was necessary to treat or prevent imminent or life-threatening deterioration of the following conditions: 1) acute hypoxemic respiratory failure 2) cardiogenic shock Recommendations for treatment include: 1) acute hypoxemic respiratory failure. Patient's chest x-ray shows improvement in his pulmonary edema with still some persistent infiltrates and potentially a large effusion on the left-hand side. Overall his hypoxemia appears to be in the severe ARDS range and is not fully explained by his pulmonary edema. -pulmonology to see about severe ARDS -continue fluid removal with dialysis 2) cardiogenic shock. Hemodynamics reviewed that shows stable filling pressures and cardiac output Impella reviewed and appears to be high with respect to its positioning -continue Impella support with weaning today as tolerated -continue current medications Attending Documentation: I have seen and examined this patient on the day of service. I have reviewed and confirmed the history, physical exam, laboratory and radiographic data with the house staff as documented in the ICU resident note. I have reviewed and discussed my treatment plan with the ICU team and other medical/investigations consultant staff. * Roberto Carlos Newberry, PT - 06/08/2022 3:00 PM CDT Physical Therapy 06/08/22 1500 General PT Missed Visit Reason Sedated;Other (comment) (pt intubated, sedated, primaflex CVVHD.) * Marcelina Pickard, ROBERTO - 06/08/2022 7:58 AM CDT PROCEDURE: [facility] w/ complex PCI and Impella CP placement on 06/07/22 ACCESS: 14 RFA Impella sheath RESULTS: 1. High-risk but successful PCI of left dominant circumflex and OM bifurcation with Synergy drug-eluting stents placed as above. 2. Cardiogenic shock and pulmonary edema resulting from PCI requiring pressor support, intubation and subsequent placement of Impella CP. PRE-PROCEDURE LABS: Hgb- 9.3 Creat- DIAL Referral to Cardiac Rehab ordered. For aggressive risk factor modification and medical therapy for secondary prevention of coronary artery disease, patient should be discharged on DAPT with aspirin/clopidogrel, and statin therapy. Follow up appt with primary residential lawn specialist, Dr Petit in 2-4 weeks post discharge. KATIE Dos Santos-C Interventional Cardiology Nurse Practitioner [phone] Please refer to [facility] Blood Management Reduction Decision Tool prior to blood transfusions Stable Patient: Restrictive Threshold for Transfusion Hgb < 7.0 g/dL 1. Reassess if spurious lab by repeat Hgb 2. Evaluate based on Clinical Symptoms and Hgb 3. Do not transfuse RBCs for Fe deficient anemia without instability 4. Unnecessary blood draws lead to blood loss 5. Conserve resources 6. Evaluate first Hgb of day unless bleeding or unstable Prior to Stable Patient Transfusion Contact: 7 am to 5 pm - CCU Fellow 5 pm to 7 am Consults - CCU Night Call Fellow * Lavern Morrison MD - 06/08/2022 3:06 AM CDT CCU DAILY PROGRESS Patient: Adelia Garvin Jr. Room: [place] [id number] Date: 06/08/2022 Summary Statement: Adelia Garvin Jr. is a 51 y.o. male with a history of CHF (EF 50% 2016), Afib (not on AC), HTN, CAD s/p stent 04/06 and 3 stent 12/07, T1DM (insulin pump at home), ESRD on PD, HLD, GERD, hyperparathyroidism, DDD, OA, gout, BEN on CPAP initially presented to OSH for n/v and chest pain, transferred to [facility] for LHC/PCI, who presented to CCU s/p complex PCI with impella and intubated. SUBJECTIVE Overnight: -CVVHD started with intention of fluid removal. Patient became hypotensive to 70s-80s/50s-60s requiring levophed to be started and A-line placed. Only 107ml off overnight. -C/f DKA given BG in 300s, AG 21, K 3.3, BHB 2.3, ABG with pCO2 27; Started on insulin gtt, D5, andK repletion. -Weaned vent settings: Decreased RR to 20 with improvement in pCO2. Decreased FiO2 and PEEP to 70 and 10 but patient desatting into the 80s, so subsequently increased to FiO2 80 and PEEP 12. -Weaned veletri from 160 mcg/hr to 120 mcg/hr -Weaned off levo this AM Brief Plan Updates: -Plan for fluid removal today. FBG: -500ml to -1L -TTE -Wean veletri as tolerated -Wean vent as tolerated -Continue meropenem MEDICATIONS Scheduled Meds: Scheduled Meds:[Held by Provider] amLODIPine, 10 mg, oral, Daily aspirin, 81 mg, oral, Daily atorvastatin, 80 mg, oral, Daily calcitRIOL, 0.25 mcg, oral, Daily [Held by Provider] calcium acetate(phosphat bind), 667 mg, oral, QID [Held by Provider] cloNIDine, 0.1 mg, oral, BID clopidogreL, 75 mg, oral, Daily docusate sodium, 100 mg, oral, Daily [Held by Provider] ergocalciferol, 50,000 Units, oral, Weekly ezetimibe, 10 mg, oral, Daily [Held by Provider] hydrALAZINE, 100 mg, oral, Q8H insulin glargine, 33 Units, subcutaneous, QAM insulin lispro, 0-10 Units, subcutaneous, Q4H ASHLEY [Held by Provider] isosorbide mononitrate ER, 30 mg, oral, Daily lidocaine EPINEPHrine, 10 mL, infiltration, Once meropenem, 500 mg, intravenous, Q24H [Held by Provider] metoprolol tartrate, 12.5 mg, oral, Q6H [Held by Provider] nystatin, 500,000 Units, swish & spit, QID pantoprazole, 40 mg, intravenous, BID polyethylene glycol, 17 g, oral, Daily potassium chloride, 40 mEq, intravenous, Q4H [Held by Provider] ranolazine ER, 500 mg, oral, BID [Held by Provider] terazosin, 2 mg, oral, Nightly Continuous Infusions:dextrose 5%, 50 mL/hr, Last Rate: 50 mL/hr (06/08/22 0500) epoprostenol, 160 mcg/hr, Last Rate: 160 mcg/hr (06/08/22 0330) fentaNYL, 0-400 mcg/hr, Last Rate: 75 mcg/hr (06/08/22 0500) impella purge solution infusion, 0-30 mL/hr, Last Rate: 16.6 mL/hr (06/08/22 0500) heparin, 0-33 Units/kg/hr, Last Rate: Stopped (06/07/22 1105) nitroglycerin, 0-400 mcg/min, Last Rate: Stopped (06/05/22 2100) norepinephrine, 0-2 mcg/kg/min (Dosing Weight), Last Rate: 0.01 mcg/kg/min (06/08/22 0500) NxStage 4-potassium/2.5-calcium, 1,000 mL/hr, Last Rate: 1,000 mL/hr (06/08/22 05) NxStage 4-potassium/2.5-calcium, 1,000 mL/hr, Last Rate: 1,000 mL/hr (06/08/22 05) propofol, 0-50 mcg/kg/min, Last Rate: 20 mcg/kg/min (06/08/22 0500) sodium chloride 0.9%, 10 mL/hr, Last Rate: 10 mL/hr (06/08/22 050) sodium chloride 0.9%, 10 mL/hr, Last Rate: 10 mL/hr (06/08/22 0500) sodium chloride 0.9%, 10 mL/hr sodium chloride 0.9%, 10 mL/hr, Last Rate: 10 mL/hr (06/08/22 050) sodium chloride 0.9%, 6 mL/hr, Last Rate: 6 mL/hr (06/08/22 0500) sodium chloride 0.9%, 1,000 mL sodium chloride 0.9%, 3-12 mL/hr sodium chloride 0.9%, 3-12 mL/hr sodium chloride 0.9%, 3-12 mL/hr, Last Rate: Stopped (06/07/22 190) PRN Meds:. acetaminophen albuterol HFA bisacodyL bisacodyl EC dextrose OR dextrose dextrose 5% water dextrose 5% water fentaNYL fentaNYL fluticasone propionate glucagon Dialysis Access Care AND heparin heparin OR heparin lidocaine ondansetron ODT OR ondansetron phenoL polyethylene glycol ramelteon sodium chloride 0.9% PRN Meds: acetaminophen albuterol HFA bisacodyL bisacodyl EC dextrose OR dextrose dextrose 5% water dextrose 5% water fentaNYL fentaNYL fluticasone propionate glucagon Dialysis Access Care AND heparin heparin OR heparin lidocaine ondansetron ODT OR ondansetron phenoL polyethylene glycol ramelteon sodium chloride 0.9% OBJECTIVE Vitals: Vitals: 06/08/22 0500 BP: Pulse: (!) 47 Resp: 20 Temp: SpO2: 92% Input and Output: Intake/Output Summary (Last 24 hours) at 06/08/2022 0558 Last data filed at 06/08/2022 0500 Gross per 24 hour Intake 21065.23 ml Output 05438 ml Net -328.77 ml Ventilator Settings: 20/500/80/12 Physical Exam: General: Intubated and sedated Eyes: PERRL. Sclera nonicteric. ENT: MMM. ETT in place. Trialysis line in L neck. Cardiac: Regular rate and rhythm. Pulm: On ventilator. GI/Abd: Soft, obese, nondistended, BS positive Lymphatic: No significant LAD Extremities: No peripheral cyanosis. 2+ pitting edema Skin: No rash or bruises Neuro: Sedated on ventilator. PERRL. LABORATORY DATA CBC Recent Labs Lab Units 06/08/22 0214 WBC K/cumm 10.1* HEMOGLOBIN g/dL 8.3* HEMATOCRIT % 23.1* PLATELETS K/cumm 218 NEUTROS PCT % 81.0 LYMPHS PCT % 5.0 MONOS PCT % 10.1 EOS PCT % 0.0 Chem Recent Labs Lab Units 06/08/22 0526 06/08/22 0416 06/08/22 0412 SODIUM mmol/L -- -- 135 POTASSIUM PLASMA mmol/L -- -- 4.0 CHLORIDE mmol/L -- -- 99 CO2 mmol/L -- -- 26 ANIONGAP mmol/L -- -- 10 BUN SERUM mg/dL -- -- 67* CREATININE mg/dL -- -- 7.65* GLUCOSE mg/dL -- -- 109 POC GLUCOSE MONITOR mg/dL 121 < > -- CALCIUM mg/dL -- -- 8.2* < > = values in this interval not displayed. LFTs Recent Labs Lab Units 06/07/22 1708 ALK PHOS Units/L 177* BILIRUBIN TOTAL mg/dL 0.8 TOTAL PROTEIN g/dL 6.0* ALT Units/L See Comment AST Units/L See Comment Coags Recent Labs Lab Units 06/07/22 1957 06/05/22 1834 06/05/22 1554 APTT sec 44* < > 45* INR -- -- 1.0 < > = values in this interval not displayed. Cardiac Enzymes No results found for: TROPONINT Lab Results Lab Value Date/Time TROPONINI 0.03 03/21/2017 2232 TROPONINI 0.03 03/21/2017 0715 TROPONINI <0.03 11/06/2013 0612 TROPONINI <0.03 11/05/2013 2147 TROPONINI <0.03 11/05/2013 1430 TROPONINI <0.03 11/05/2013 0937 Urine Analysis Recent Labs Lab Units 06/05/222046 COLOR U Yellow CLARITY U Cloudy* SPEC GRAV U 1.037* PH, URINE 6.0 PROTEIN UR QL 3+* GLUCOSE URQL 3+* KETONES UR Negative BLOOD UR 3+* NITRITE UR Negative LEUKOCYTE ESTERASE UR Negative ABG Recent Labs Lab Units 06/08/22 0412 PH ART 7.41 PCO2 ART mmHg 37 PO2 ART mmHg 57* HCO3 ART (CALC) mmol/L 24 BASE EXC ART mmol/L -1 O2 SAT ART (UYEN) % 88* Screening Labs: Iron Studies Recent Labs Lab Units 06/07/221999 IRON mcg/dL 50 TIBC mcg/dL 130* Recent Labs Lab Units 06/07/221999 FERRITIN ng/mL 2,062* Cholesterol Recent Labs Lab Units 06/04/22 2252 CHOLESTEROL mg/dL 149 Hgb A1C Recent Labs Lab Units 06/04/22 2252 HEMOGLOBIN A1C % 7.8* Radiology and Other Diagnostics: XR Chest 1 View Result Date: 06/06/2022 The current study is compared with the prior radiograph dated 06/05/2022 3:14 PM. The cardiomediastinal silhouette is stable. There are persistent diffuse bilateral airspace opacities compatible withmoderate to severe pulmonary edema. The extent of the opacities is similar to slightly increased compared to the prior examination. No definite pleural effusion, though the left costophrenic angle isexcluded. No pneumothorax. Dictated by: Jersey Morales MD The radiology attending physician has personally reviewed this study, and had reviewed and/or edited this written report and agrees with it. Electronically signed by: Saurav Emerson M.D. ASSESSMENT and PLAN Adelia Garvin Jr. is a 51 y.o. male with a history of CHF (EF 50% 2017), Afib (not on AC), HTN, CAD s/p stent 04/06 and 3 stent 12/07, T1DM (insulin pump at home), ESRD on PD, HLD, GERD, hyperparathyroidism, DDD, OA, gout, BEN on CPAP initially presented to [facility] for n/v and chest pain, transferred to [facility] for LHC/PCI, who presented to the CCU s/p complex PCI with impella and intubated. CARDIOVASCULAR #Cardiogenic shock #NSTEMI s/p complex PCI #CAD S/p complex PCI to the LCx and OM, impella placed and pt was intubated and transferred to the CCU. Etiology of decompensation likely flash pulmonary edema leading to acute hypoxic respiratory distress. 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 Etiology of respiratory decompensation likely flash pulmonary edema, ARDS also possible. Less likely but also possible PNA. Arrived to CCU on ventilator settings: 34/500/90/15, not requiring pressors. -pCO2 improved on RR decreased to 20 -Patient desaturated on PEEP 10, increased to PEEP 12 -Vent settings: 20/500/80/12 -Wean ventilator settings as tolerated RENAL #ESRD on PD #Volume overload Presented to CCU in AHRF likely s/t volume overload. -Renal consulted -Started on CVVHD -Held off on pulling off fluid as patient hypotensive to 70s-80s/50s-60s with PCWP ~16 -Plan for fluid removal today. FBG: -500ml to -1L GI #Cholecystitis Patient with CT CAP and RUQ US c/f cholecystitis at OSH. Has been unable to get HIDA scan due to decompensation. -Gen surg consulted: recommended against surgical procedure or Perc cholesystostomy. Recommended IVAbx and trending WBC, LFTs, lipase -HIDA scan when stable -Continue IV Abx: meropenem ENDO #T1DM #DKA - resolved Pt has T1DM; has insulin pump at home. Prior to intubation was on lantus 33u qam, humalog 9u tidac,resistant correctional humalog tidac, hs. In CCU, patient with DKA: BG in 300s, AG 21, K 3.3, BHB 2.3, ABG with pCO2 27. Treated with insulin gtt, D5, and K repletion. Labs improved to BG 100s, AG 10, K 4.0, BHB 0.1, pCO2 37. -Insulin gtt d/c'd -Continue basal insulin 33 units -Continue resistant SSI q4h -Hold mealtime insulin -Endo consult, appreciate recs NEURO #Sedation On propofol, fentanyl gtt CV #HFrEF TTE (2017): EF 50% Holding home hydral/imdur/lasix -repeat TTE #Afib Not on anticoagulation at home. -Holding home metoprolol given cardiogenic shock. -heparin gtt HEME/ONC #Anemia Hgb 9.5 on admission to [facility] and 7.8 on arrival to CCU. Hgb subsequently measured at 4.3, but actually 7.5 on re-draw. Received consent for blood transfusion if necessary from patient's brother. -Transfuse for Hgb <7 -Maintain active T&S -CTM H/H Checklist [] Central Line/ PICC: PAC, trialysis [] DVT PPX: heparin gtt [] PUD PPX: IV 40 pantoprazole BID [] Glucose Control: glargine 33U, SSI q4h [] Weaning/Extubation: on vent, wean as able [] HOB >30 [] Sedation: propofol 20 [] Volume Status: FBG neg [] Medication Reviewed [] Nutrition: NG placed, currently sedated/on vent [] PT/OT: not consulted as patient intubated/sedated [] AM Labs: ordered [] Invasive Devices: Impella CP [] External urinary Catheter: placed 06/08 [] Family Updated: called evening 06/07 [] Code Status: Full Code Attending MD to make comment on patient risk/complexity. Lavern Morrison MD Resident Physician, Internal Medicine Cosigned by Eric Reed MD at 06/09/2022 12:58 PM CDT Associated attestation - Eric Reed MD - 06/09/2022 12:58 PM CDT Critital Care Services: Total Time Spent 35 minutes. Date:06/08/2022 Critical Care Time: I have spent 35 minutes in full attendance with this critically ill patient making frequent reassessments and decisions regarding this patient's complex medical care. Critical care time was exclusive of separately billable procedures, treating other patients and teaching time. Critical care was necessary to treat or prevent imminent or life-threatening deterioration of the following conditions: 1) acute hypoxemic respiratory failure 2) cardiogenic shock Recommendations for treatment include: 1) acute hypoxemic respiratory failure. The patient still has a significant oxygen requirement and no fluid was removed from the night prior. -continue PEEP support and pulmonary vasodilators -aggressive fluid removal with dialysis today 2) cardiogenic shock. Hemodynamics personally reviewed that shows stable cardiac output with modestelevation in his filling pressures. -continue Impella support Attending Documentation: I have seen and examined this patient on the day of service. I have reviewed and confirmed the history, physical exam, laboratory and radiographic data with the house staff as documented in the ICU resident note. I have reviewed and discussed my treatment plan with the ICU team and other medical/investigations consultant staff. 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 Bed: [id number] : 1970 Age: 51 y.o. male Admit: 06/04/2022 Date of service: 06/07/2022 Critical Care Time: I have spent 45 minutes in full attendance with this critically ill patient making frequent reassessments and decisions regarding this patient's complex medical care in addition and separately from other providers. Critical care time was exclusive of separately billable procedures, treatment of other patients, and teaching time. Critical care was necessary to treat or prevent imminent or life-threatening deterioration of the following conditions: NSTEMI Cholecystitis Acute hypoxemic respiratory failure Interval History: He wore NIV overnight (uses NIV at home for BEN), then was weaned to NC this morning. He had 2.5L of UF with PD. RUQ pain still present with palpation, but not at rest. He has been receiving pre-medications for contrast allergy in anticipation of [facility] today. Scheduled Meds:amLODIPine, 10 mg, oral, Daily aspirin, 81 mg, oral, Daily atorvastatin, 80 mg, oral, Daily calcitRIOL, 0.25 mcg, oral, Daily calcium acetate(phosphat bind), 667 mg, oral, QID cloNIDine, 0.1 mg, oral, BID clopidogreL, 600 mg, oral, Once clopidogreL, 75 mg, oral, Daily diphenhydrAMINE, 50 mg, oral, Once docusate sodium, 100 mg, oral, Daily ergocalciferol, 50,000 Units, oral, Weekly ezetimibe, 10 mg, oral, Daily hydrALAZINE, 100 mg, oral, TID insulin glargine, 33 Units, subcutaneous, QAM insulin lispro, 0-10 Units, subcutaneous, TID with meals insulin lispro, 0.04 Units/kg, subcutaneous, TID insulin lispro, 9 Units, subcutaneous, TID with meals isosorbide mononitrate ER, 30 mg, oral, Daily meropenem, 500 mg, intravenous, Q24H metoprolol tartrate, 12.5 mg, oral, QID nystatin, 500,000 Units, swish & spit, QID pantoprazole DR, 40 mg, oral, Daily polyethylene glycol, 17 g, oral, Daily predniSONE, 50 mg, oral, Q6H ranolazine ER, 500 mg, oral, BID terazosin, 2 mg, oral, Nightly Continuous Infusions:heparin, 0-33 Units/kg/hr, Last Rate: 14 Units/kg/hr (06/07/22 0800) nitroglycerin, 0-400 mcg/min, Last Rate: Stopped (06/05/22 2100) PRN Meds:. acetaminophen albuterol HFA dextrose OR dextrose fluticasone propionate glucagon heparin OR heparin lidocaine ondansetron ODT OR ondansetron phenoL ramelteon Intake/Output Summary (Last 24 hours) at 06/07/2022932 Last data filed at 06/07/2022 0800 Gross per 24 hour Intake 89254.7 ml Output 01650 ml Net -1579.3 ml 24hr Min/Max: Temp Min: 36.6 ??C (97.9 ??F) Max: 37.7 ??C (99.9 ??F) Pulse Min: 59 Max: 70 BP Min: 130/49 Max: 161/58 Resp Min: 14 Max: 49 SpO2 Min: 85 % Max: 100 % Most Recent: Vitals: 06/07/22 0800 BP: 145/58 Pulse: 66 Resp: 22 Temp: 36.7 ??C (98.1 ??F) SpO2: 98% Exam: Const: Chronically ill-appearing male sitting up in bed. HEENT: No scleral icterus. NC in place. CV: Regular rate and rhythm Resp: Coarse breath sounds bilaterally, mild crackles noted Abd: Soft, non-distended, tender to palpation in RUQ. Left-sided PD catheter Extr: Trace LE edema Neuro: Moves all extremities Data: Recent Results (from the past 24 hour(s)) aPTT Collection Time: 06/06/22 10:26 AM Result Value Ref Range aPTT 71 (H) 27 - 37 sec POCT glucose Collection Time: 06/06/22 11:38 AM Result Value Ref Range Glucose, POC 108 70 - 199 mg/dL POCT glucose Collection Time: 06/06/22 5:53 PM Result Value Ref Range Glucose, POC 99 70 - 199 mg/dL Comprehensive metabolic panel Collection Time: 06/06/22 8:16 PM Result Value Ref Range Sodium 132 (L) 135 - 145 mmol/L Potassium, pl 3.4 3.3 - 4.9 mmol/L Chloride 89 (L) 97 - 110 mmol/L CO2 25 22 - 32 mmol/L Anion gap 18 (H) 2 - 15 mmol/L BUN 82 (H) 8 - 25 mg/dL Creatinine 10.45 (H) 0.80 - 1.30 mg/dL Glucose 112 70 - 199 mg/dL Calcium 7.5 (L) 8.5 - 10.3 mg/dL Bilirubin, total 0.7 0.1 - 1.2 mg/dL Protein, pl 6.5 6.5 - 8.5 g/dL Albumin 3.2 (L) 3.5 - 5.0 g/dL Alk phos 135 (H) 40 - 130 Units/L ALT 40 7 - 55 Units/L AST 45 10 - 50 Units/L CBC with auto differential Collection Time: 06/06/22 8:16 PM Result Value Ref Range WBC 11.6 (H) 3.8 - 9.9 K/cumm Hgb 9.3 (L) 13.0 - 17.5 g/dL Hct 26.4 (L) 38.9 - 50.3 % Plt 207 150 - 400 K/cumm MPV 11.1 9.1 - 12.3 fL RBC 2.99 (L) 4.30 - 5.80 M/cumm MCV 88.3 81.3 - 96.4 fL MCH 31.1 27.1 - 33.3 pg MCHC 35.2 32.3 - 35.7 g/dL RDW CV 13.1 11.1 - 14.9 % RDW SD 42.2 35.7 - 48.1 fL NRBC abs 0.00 0.00 - 0.01 K/cumm Magnesium Collection Time: 06/06/22 8:16 PM Result Value Ref Range Magnesium 2.1 1.4 - 2.5 mg/dL Phosphorus Collection Time: 06/06/22 8:16 PM Result Value Ref Range Phosphorus, pl 6.6 (H) 2.3 - 4.5 mg/dL Differential, auto Collection Time: 06/06/22 8:16 PM Result Value Ref Range Neutrophil abs 9.8 (H) 1.7 - 6.5 K/cumm Imm gran abs 0.2 (H) 0.0 - 0.1 K/cumm Lymphocyte abs 0.7 (L) 0.8 - 3.3 K/cumm Monocyte abs 0.9 (H) 0.2 - 0.8 K/cumm Eosinophil abs 0.1 0.0 - 0.5 K/cumm Basophil abs 0.0 0.0 - 0.1 K/cumm Neutrophil pct 84.4 % Imm gran pct 1.3 % Lymphocyte pct 6.0 % Monocyte pct 7.6 % Eosinophil pct 0.5 % Basophil pct 0.2 % eGFR Collection Time: 06/06/22 8:16 PM Result Value Ref Range eGFR 5 (L) 90 - 130 mL/min/1.73 m2 POCT glucose Collection Time: 06/06/22 8:18 PM Result Value Ref Range Glucose, POC 123 70 - 199 mg/dL POCT glucose Collection Time: 06/06/22 11:51 PM Result Value Ref Range Glucose, POC 170 70 - 199 mg/dL aPTT Collection Time: 06/07/22 4:17 AM Result Value Ref Range aPTT 57 (H) 27 - 37 sec POCT glucose Collection Time: 06/07/22 4:17 AM Result Value Ref Range Glucose, POC 239 (H) 70 - 199 mg/dL POCT glucose Collection Time: 06/07/22 7:59 AM Result Value Ref Range Glucose, POC 247 (H) 70 - 199 mg/dL I have reviewed the laboratory and radiology results. Pertinent findings include: Cr 10.45 Potassium 3.4 WBC 11.6 Hgb 9.3 Assessment/Plan: Mr. Garvin is a 51 year-old male who presented for complex PCI, also found to have likely cholecystitis, who was transferred to the ICU for management of acute hypoxemic respiratory failure. His hypoxemic respiratory failure improved significantly with hypertensive control, and he has been able to lay flat on NC alone. He will hopefully be able to undergo PCI today for his NSTEMI, after which further diagnostics and operative planning (if any) will be undertaken for his suspected cholecystitis. ADDENDUM: After evaluation this morning, Mr. Garvin was taken for [facility] but developed profound hypoxemia requiring intubation. Per discussion with Cardiology, he will be undergoing Impella placement and will be transferred to the CCU. This was discussed directly with the CCU attending as well. The plan below was formulated prior to these events. NSTEMI In the setting of known coronary disease, cholecystitis, ESRD with poor clearance [facility] today, has received contrast allergy pre-medication Plavix load per Cardiology Ideally would be revascularized prior to any intervention (if any) to his gallbladder given concerns for cholecystitis Continue dual antiplatelet therapy Continue atorvastatin Change metoprolol to q6 dosing from QID to ensure appropriately spaced administration Weaned off nitroglycerin, on Imdur Continue heparin drip, can transition to alternative anticoagulation afterwards for atrial fibrillation Cholecystitis With RUQ pain and ultrasound consistent with this diagnosis ACCS following HIDA scan ordered, to be performed whenever feasible but would not delay [facility] For this Continue meropenem for gram negative and anaerobic coverage Will almost certainly need to be revascularized prior to any open surgical management, and given necessity of DAPT he may ultimately require a percutaneous cholecystostomy tube, but this will be complicated by his peritoneal dialysis needs Acute hypoxemic respiratory failure Likely related to flash pulmonary edema in the setting of hypertension, NSTEMI, HFpEF Continue aggressive volume removal with PD given minimal response to diuretics Aggressive blood pressure control Wean O2 as tolerated, currently on NC Hypertensive urgency/emergency With associated flash pulmonary edema Now controlled on oral agents Goal SBP 140-160 for now Continue low dose clonidine 0.1 mg BID to prevent rebound Continue amlodipine 10 mg daily, hydralazine 100 mg TID, Imdur 30 mg daily, dose-reduced metoprolol ESRD On PD at home Renal following Needs aggressive fluid removal with PD, did not respond well to diuretics Clarify PD feasibility with ongoing suspicion for cholecystitis, suspect that any intervention would potentially seed his peritoneal cavity On calcitriol, phosphate binders DM Basal/bolus insulin per endocrinology Allow diet when feasible from procedural perspective Therapeutic anticoagulation Full code I have seen and examined this patient on the day of service. I have reviewed and confirmed the history, physical exam, laboratory and radiographic data with the resident as documented in his/her note. I have reviewed and discussed my treatment plan with the ICU team and other medical/investigations consultant staff. Conrad Akers MD Pulmonary/Critical Care * Girish Kirk MD - 06/07/2022 7:56 AM CDT [facility] Acute and Critical Care Surgery (ACCS) Consult Service Daily Progress Note Admit: 06/04/2022 9:32 PM Date: June 07, 2022 Length of Stay: 3 Attending: Conrad Akers MD POD:1 Day Post-Op Subjective Interval History: No acute overnight events AF VSS Pain well controlled, present with palpation Objective Medications: Current Facility-Administered Medications: acetaminophen (TYLENOL) tablet 325 mg, 325 mg, oral, Q4H PRN, HoDewey MD albuterol HFA (PROVENTIL HFA,VENTOLIN HFA,PROAIR HFA) 90 mcg/actuation inhaler 2 puff, 2 puff, inhalation, Q6H PRN (RT), Dewey Parra MD amLODIPine (NORVASC) tablet 10 mg, 10 mg, oral, Daily, Dewey Parra MD, 10 mg at 06/06/22819 aspirin enteric coated tablet 81 mg, 81 mg, oral, Daily, Dewey Parra MD, 81 mg at 06/06/22819 atorvastatin (LIPITOR) tablet 80 mg, 80 mg, oral, Daily, Dewey Parra MD, 80 mg at 06/06/22819 calcitRIOL (ROCALTROL) capsule 0.25 mcg, 0.25 mcg, oral, Daily, Dewey Parra MD, 0.25 mcg at 06/06/22819 calcium acetate(phosphat bind) (PHOSLO) capsule 667 mg, 667 mg, oral, QID, Dewey Parra MD, 667 mgat 06/06/222018 cloNIDine (CATAPRES) tablet 0.1 mg, 0.1 mg, oral, BID, Anurag Mortensen MD, 0.1 mg at 06/06/222018 clopidogreL (PLAVIX) tablet 75 mg, 75 mg, oral, Daily, Dewey Parra MD, 75 mg at 06/06/22819 dextrose gel in packet 15 g, 15 g, oral, Q15 Min PRN OR dextrose (D10W) 10% bolus 250 mL, 250 mL, intravenous, Q15 Min PRN, Dewey Parra MD diphenhydrAMINE (BENADRYL) capsule 50 mg, 50 mg, oral, Once, Veronica Tavares MD docusate sodium (COLACE) capsule 100 mg, 100 mg, oral, Daily, Dewey Parra MD, 100 mg at 06/06/22819 ergocalciferol (VITAMIN D) capsule 50,000 Units, 50,000 Units, oral, Weekly, Dewey Parra MD, 50,000 Units at 06/06/22819 ezetimibe (ZETIA) tablet 10 mg, 10 mg, oral, Daily, Dewey Parra MD, 10 mg at 06/06/22 0820 fluticasone propionate (FLONASE) 50 mcg/actuation nasal spray 2 spray, 2 spray, each nostril, BID PRN, Dewey Parra MD glucagon injection 1 mg, 1 mg, intramuscular, Q30 Min PRN, Dewey Parra MD heparin 1,000 unit/mL injection 2,000 Units, 2,000 Units, intravenous, Q6H PRN OR heparin 1,000unit/mL injection 3,000 Units, 3,000 Units, intravenous, Q6H PRN, Dewey Parra MD, 3,000 Units at 06/05/22 2100 heparin in 0.9% sodium chloride 25,000 unit/250 mL infusion (premix), 0-33 Units/kg/hr, intravenous, Titrated, Dewey Parra MD, Last Rate: 19.88 mL/hr at 06/07/22 0600, 14 Units/kg/hr at 06/07/22 0600 hydrALAZINE (APRESOLINE) tablet 100 mg, 100 mg, oral, TID, Dewey Parra MD, 100 mg at 06/06/22 2019 insulin glargine (LANTUS, SEMGLEE) 100 unit/mL injection 33 Units, 33 Units, subcutaneous, QAM, Dewey Parra MD, 33 Units at 06/06/22 0819 insulin lispro (HumaLOG, ADMELOG) 100 unit/mL injection 0-10 Units, 0-10 Units, subcutaneous, TID with meals, Dewey Parra MD, 6 Units at 06/05/22 1723 insulin lispro (HumaLOG, ADMELOG) 100 unit/mL injection 6 Units, 0.04 Units/kg, subcutaneous, TID, Dweey Parra MD, 6 Units at 06/07/22 0417 insulin lispro (HumaLOG, ADMELOG) 100 unit/mL injection 9 Units, 9 Units, subcutaneous, TID with meals, Dbouk, Veronica Gee MD, 9 Units at 06/06/22 1805 isosorbide mononitrate ER (IMDUR) extended release tablet 30 mg, 30 mg, oral, Daily, Dewey Parra MD, 30 mg at 06/06/22 0820 lidocaine (LIDODERM) 5 % patch 1 patch, 1 patch, transdermal, Daily PRN, Dewey Parra MD meropenem (MERREM) 500 mg/105 mL in sodium chloride 0.9% (premix) 500 mg, 500 mg, intravenous, Q24H, Dewey Parra MD, 500 mg at 06/06/22 1651 metoprolol tartrate (LOPRESSOR) immediate release tablet 12.5 mg, 12.5 mg, oral, QID, Anurag Mortensen MD, 12.5 mg at 06/06/22 2019 nitroglycerin in dextrose 5% 50 mg/250 mL (200 mcg/mL) infusion (premix), 0-400 mcg/min, intravenous, Titrated, Dewey Parra MD, Stopped at 06/05/222099 nystatin 100,000 unit/mL oral suspension 500,000 Units, 500,000 Units, zbigniew & nayla, NAUN, Low Cardoso MD, 500,000 Units at 06/06/22 2019 ondansetron ODT (ZOFRAN-ODT) disintegrating tablet 4 mg, 4 mg, oral, Q6H PRN OR ondansetron (ZOFRAN) injection 4 mg, 4 mg, intravenous, Q6H PRN, Dewey Parra MD pantoprazole DR (PROTONIX) extended release tablet 40 mg, 40 mg, oral, Daily, Dewey Parra MD, 40 mg at 06/06/22 0820 phenoL (CHLORASEPTIC) 1.4 % oral spray 1 spray, 1 spray, mouth/throat, Q2H PRN, Dewey Parra MD polyethylene glycol (MIRALAX) packet 17 g, 17 g, oral, Daily, Dewey Parra MD, 17 g at 06/06/22 0819 predniSONE (DELTASONE) tablet 50 mg, 50 mg, oral, Q6H, DblouiekVeronica MD, 50 mg at 601 ramelteon (ROZEREM) tablet 8 mg, 8 mg, oral, Nightly PRN, Dewey Parra MD ranolazine ER (RANEXA) extended release tablet 500 mg, 500 mg, oral, BID, Dewey Parra MD, 500 mg at 06/06/222018 terazosin (HYTRIN) capsule 2 mg, 2 mg, oral, Nightly, Dewey Parra MD, 2 mg at 06/06/222018 Diet: Dietary Orders (From admission, onward) Start Ordered 06/07/22 0001 NPO Diet Diet effective midnight 06/06/22 1228 06/05/22 2100 Bedtime snack At bedtime Comments: If bedtime BG is less than 100mg/dl, give patient a 15 gram carbohydrate snack. 06/05/22 0245 Is&Os: I/O last 2 completed shifts: In: 58225.3 [P.O.:780; I.V.:444.3; Other:08370; IV Piggyback:100] Out: 85510 [Other:06592] No intake/output data recorded. Physical Exam: BP 154/58 (BP Location: Left arm, Patient Position: HOB 30 degrees) Pulse 65 Temp 36.6 ??C (97.9 ??F) (Transdermal) Resp 14 Ht 177.8 cm (5' 10 ) Wt (!) 140.8 kg (310 lb 6.4 oz) SpO2 98% BMI 44.54 kg/m?? General: No acute distress. HEENT: EOM grossly intact, anicteric. CV: Normal rate and regular rhythm. Respiratory: Non-labored chest rise. Abdomen: Soft, non-distended, obese, tender to palpation in RUQ and epigastrium. Psychiatric: Normal mood/affect. Neurologic: Alert, non-focal. Skin: No rashes or lesions. MSK: Extremities warm, non-edematous. Grossly normal range of motion Labs/Imaging: Recent Labs Lab Units 06/06/22201506/05/22 2047 06/05/22 1554 WBC K/cumm 11.6* 9.1 10.7* HEMOGLOBIN g/dL 9.3* 9.3* 10.3* HEMATOCRIT % 26.4* 26.0* 29.1* PLATELETS K/cumm 207 201 238 Recent Labs Lab Units 06/07/22 0417 06/06/22 2351 10/17/22 201706/06/22201506/05/22211206/05/22204606/05/22 1707 06/05/22 1554 SODIUM mmol/L -- -- -- 132* -- 132* -- 132* POTASSIUM PLASMA mmol/L -- -- -- 3.4 -- 3.6 -- 4.1 CHLORIDE mmol/L -- -- -- 89* -- 90* -- 87* CO2 mmol/L -- -- -- 25 -- 25 -- 26 BUN SERUM mg/dL -- -- -- 82* -- 84* -- 81* CREATININE mg/dL -- -- -- 10.45* -- 9.77* -- 9.08* GLUCOSE mg/dL -- -- -- 112 -- 180 -- 276* POC GLUCOSE MONITOR mg/dL 239* 170 123 -- < > -- < > -- CALCIUM mg/dL -- -- -- 7.5* -- 7.8* -- 8.1* < > = values in this interval not displayed. Recent Labs Lab Units 06/05/22 1554 PROTIME (PT) sec 10.8 INR 1.0 XR Abdomen Ap 1 Vw Result Date: 06/06/2022 A single view of the abdomen is submitted for evaluation. The pelvis is excluded from the [id number] and unavailable for interpretation. A rounded density projecting over the left upper quadrant may be external to the patient. Bowel within the imaged upper abdomen is normal in caliber. Dictated by: Shiva Anaya MD The radiology attending physician has personally reviewed this study, and had reviewed and/or edited this written report and agrees with it. Electronically signed by: Kameron Muñoz M.D. XR Chest 1 View Result Date: 06/06/2022 The current study is compared with the prior radiograph dated 06/05/2022 3:14 PM. The cardiomediastinal silhouette is stable. There are persistent diffuse bilateral airspace opacities compatible withmoderate to severe pulmonary edema. The extent of the opacities is similar to slightly increased compared to the prior examination. No definite pleural effusion, though the left costophrenic angle isexcluded. No pneumothorax. Dictated by: Jersey Morales MD The radiology attending physician has personally reviewed this study, and had reviewed and/or edited this written report and agrees with it. Electronically signed by: Saurav Emerson M.D. XR Chest 1 View Result Date: 06/05/2022 Comparison is made to prior study of 06/04/2022 10:32 PM. In the interval, there has been development of moderate to severe pulmonary edema. No pneumothorax is present. No definite pleural effusion on the left. There is a tiny right pleural effusion. The heart size and mediastinal contour are unchanged. Electronically signed by: Saurav Emerson M.D. US RUQ Result Date: 06/06/2022 Sonographic findings concerning for cholecystitis. Limited evaluation of sonographic Jade's sign.Consider hepatobiliary nuclear scintigraphy / HIDA scan for more complete evaluation. Dictated by: Ponce Garcia M.D. The radiology attending physician has personally reviewed this study, and had reviewed and/or edited this written report and agrees with it. Electronically signed by: Joyce Carbone M.D., Ph.D Assessment/Plan Patient Active Problem List Diagnosis Type 2 diabetes mellitus treated with insulin (CMS/HCC) (HCC) Chronic kidney disease, stage III (moderate) ([facility]) Benign essential hypertension Hyperlipidemia 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[place] artery of [place] heart with stable angina pectoris (CMS/HCC) ([facility]) History of coronary artery stent placement Hypertension Diabetes mellitus (HCC) Snoring Hypersomnia Chronic kidney disease Pain of finger Macular ischemia Combined forms of age-related cataract Proliferative diabetic retinopathy associated with type 2 diabetes mellitus (CMS/HCC) (HCC) Abnormal cardiovascular stress test Angina pectoris ([facility]) Adelia Garvin Jr. is a C/F CHOLECYSTITIS 51M w/PMHB CHF (EF 50% 2016), Afib (not on AC), HTN, CAD s/p stent 04/06 and 3 stent 12/07, T1DM (insulin pump at home), ESRD on PD, HLD, GERD, hyperparathyroidism, DDD, OA, gout, BEN on CPAP [facility], [facility]/v, diarrhea, and chest pain, [facility] for LHC/PCI scheduled for 06/06. Pt was found to have an NSTEMI at OSH and was continued on hep gtt, asa81, plavix at [facility]. He was transferred to MICU after he was placed on NIPPV during an ACT for hypoxic respiratory failure. Pt is now currently on 10L 60% HFNC. Pt has also endorsed RUQ abdominal pain for the past 4 days. Pt notes he has had this pain prior, 2-3 times every few months for the past few years but it has always resolved a few hours after onset.Pt was started on meropenem on 06/05 for presumed cholecystitis. RUQ US performed 06/05/22 that showed: GB enlarged, stones/sludge in GB, GB wall thickening, pericholecystic fluid. tBili 0.6, WBC 9.1, BMI 44.9. Edited by: Jersey Mayer MD at 06/06/20222037 - No acute surgical intervention at this time - Recommend HIDA scan to rule out GB pathology - Serial abdominal exams - ACCS will continue to follow The care plan above has been or will be discussed with attending physician. Any changes will be communicated to the primary team. Please contact the [facility] Inpatient Consult Service at the number listed below with any questions or concerns regarding the surgical management of this patient. Girish Kirk MD Resident Physician General Surgery [facility]S ED Consult [facility] Inpatient Consult [facility] Outpatient Clinic - option 1 Cosigned by Modesta Gamez MD at 06/07/2022 9:33 PM CDT Associated attestation - Modesta Gamez MD - 06/07/2022 9:33 PM CDT I agree with the findings and plan of care as documented in the resident's/fellow's note. I did not evaluate the patient today, as he was in the lab technician upon my arrival. Later chart reviewrevealed a significant decompensation requiring intubation and Impella. It remains unclear if he has cholecystitis but symptoms reported yesterday are consistent with recurrent biliary colic. Even ifcholecystitis were present, I would not recommend surgery given his poor clinical status. Percutaneous cholecystostomy is also likely not possible given his anticoagulation. Antibiotics remains the preferred treatment approach. Because HIDA may not be feasible or safe, I would recommend empiric treatment of possible cholecystitis with IV antibiotics. Recommend trending WBC, LFTs and lipase for the next few days. Surgery will sign off, but please call us with any questions or concerns. Nona Gamez MD Instructor, Acute and Critical Care Surgery [employer] [facility] [employer] * Amira Davenport RN - 06/06/2022 12:04 PM CDT CM Initial Assessment Interview Note Information Obtained From: Patient (06/06/22 115) Admission Source: from [facility] Impression: Hx - CHF, Afib, HTN, CAD x/p Stent, DM, ESRD, HLD, GERD, hyperparathyroidism, DDD, OA, gout BEN Acute hypoxic respiratory failure, NSTEMI, Pneumonia, DVT, HLD, Chronic angina, GERD, BPH, Vit D Def., Constipation Plan Includes: No home needs identified at this time. Primary Source of Transportation: Does the patient need discharge transport arranged?: No (06/06/22 1203) Health Insurance Coverage: Medicare & [place] Medicaid Prescription Coverage: yes [facility] Primary Care Provider: Aditya Castro MD - verified Prior to Admission: Primary Caregiver: Self Who does the patient or legal guardian want to receive education instruction and discharge plans for after care assistance?: No Caregiver Available Support System: Children, Family members Support system contact info (name, phone, availablity): Brother Jude Gallardo - [phone] Home Care Services: No Durable Medical Equipment: Walker (wheeled) Living Arrangements: Children Type of Residence: Private residence (06/05/22 0000) SDOH: Transportation: Financial Resource: Housing: Social Connections: Food Insecurity: Alcohol Use: PHQ Screening Potential discharge needs include: Dialysis: Behavioral Health Services: Behavioral Health Services: No (06/06/22 115) Patient expects to be Discharged to: Private residence, (06/06/22 115) Additional Information: Patient has applied for Choreworker services Patient's Identified Problem/Goal Problem: Ensure acute medical [...] Collaboration with patient, MD, direct care nurse, Psychiatric Nurse, and other members of the health care team to assure needed interventions completed. 2. Return patient to optimal level of self-care post discharge. 3. Back Shoe Worker will follow for Discharge Planning - interventions as needed 4. Anticipated level of care at discharge 5. Planned Discharge Disposition Based on a comprehensive family assessment, assistance with instrumental activities of daily livingafter discharge will be provided by the patient's family. Through the course of our work I determined that the patient's family possesses the skill and ability to provide and monitor the care of the patient when he returns home. The patient's family has thecapacity to provide/monitor/arrange for the care of the patient. Finally, we determined that the patient's family has the knowledge of available resources and that combining them with their existing resources will suffice to sustain and care for the patient when he returns home. The treatment team is aware of this information. All are in agreement with the aftercare plan. Amira Davenport RN * Conrad Akers MD - 06/06/2022 9:56 AM CDT MICU Attending Daily Note Name: Adelia Garvin Jr. Bed: [id number] : 1970 Age: 51 y.o. male Admit: 06/04/2022 Date of service: 06/06/2022 Critical Care Time: I have spent 45 minutes in full attendance with this critically ill patient making frequent reassessments and decisions regarding this patient's complex medical care in addition and separately from other providers. Critical care time was exclusive of separately billable procedures, treatment of other patients, and teaching time. Critical care was necessary to treat or prevent imminent or life-threatening deterioration of the following conditions: NSTEMI Cholecystitis Acute hypoxemic respiratory failure Interval History: Overnight he was maintained on NIV with adequate oxygenation, weaned to NC this morning. RUQ ultrasound concerning for cholecystitis. He is feeling better this morning but still having RUQ pain. Scheduled Meds:amLODIPine, 10 mg, oral, Daily aspirin, 81 mg, oral, Daily atorvastatin, 80 mg, oral, Daily calcitRIOL, 0.25 mcg, oral, Daily calcium acetate(phosphat bind), 667 mg, oral, QID [Held by Provider] cloNIDine, 0.3 mg, oral, Q8H clopidogreL, 75 mg, oral, Daily docusate sodium, 100 mg, oral, Daily ergocalciferol, 50,000 Units, oral, Weekly ezetimibe, 10 mg, oral, Daily gentamicin, , topical, Daily hydrALAZINE, 100 mg, oral, TID insulin glargine, 33 Units, subcutaneous, QAM insulin lispro, 0-10 Units, subcutaneous, TID with meals insulin lispro, 0.02 Units/kg, subcutaneous, TID with meals insulin lispro, 0.04 Units/kg, subcutaneous, TID isosorbide mononitrate ER, 30 mg, oral, Daily meropenem, 500 mg, intravenous, Q24H metoprolol tartrate, 50 mg, oral, BID pantoprazole DR, 40 mg, oral, Daily polyethylene glycol, 17 g, oral, Daily ranolazine ER, 500 mg, oral, BID terazosin, 2 mg, oral, Nightly Continuous Infusions:heparin, 0-33 Units/kg/hr, Last Rate: 13 Units/kg/hr (06/06/22 0900) nitroglycerin, 0-400 mcg/min, Last Rate: Stopped (06/05/22 2100) PRN Meds:. acetaminophen albuterol HFA dextrose OR dextrose fluticasone propionate glucagon heparin OR heparin lidocaine ondansetron ODT OR ondansetron phenoL ramelteon Intake/Output Summary (Last 24 hours) at 06/06/2022 0957 Last data filed at 06/06/2022 0900 Gross per 24 hour Intake 62274.47 ml Output 37180 ml Net -2112.53 ml 24hr Min/Max: Temp Min: 35.5 ??C (95.9 ??F) Max: 38.5 ??C (101.3 ??F) Pulse Min: 60 Max: 75 BP Min: 101/33 Max: 204/79 Resp Min: 10 Max: 27 SpO2 Min: 92 % Max: 100 % Most Recent: Vitals: 06/06/22 0900 BP: 142/57 Pulse: 60 Resp: 15 Temp: 37.4 ??C (99.3 ??F) SpO2: 95% Exam: Const: Chronically ill-appearing male sitting up in bed. Responds fluently and appropriately HEENT: No scleral icterus. NC in place. CV: Regular rate and rhythm Resp: Coarse breath sounds bilaterally, diffuse crackles Abd: Soft, non-distended, tender to palpation in RUQ. Left-sided PD catheter noted Extr: Trace LE edema Derm: No rashes noted MSK: No significant sarcopenia Neuro: Moves all extremities Data: Recent Results (from the past 24 hour(s)) POCT glucose Collection Time: 06/05/22 10:07 AM Result Value Ref Range Glucose, POC 403 (H) 70 - 199 mg/dL aPTT Collection Time: 06/05/22 11:04 AM Result Value Ref Range aPTT 29 27 - 37 sec POCT glucose Collection Time: 06/05/22 11:23 AM Result Value Ref Range Glucose, POC 402 (H) 70 - 199 mg/dL Glucose comment 1 Glu2: RN/MD Notified Beta-hydroxybutyrate Collection Time: 06/05/22 12:10 PM Result Value Ref Range Beta-Hydroxybutyrate <0.1 0.0 - 0.5 mmol/L Lactate Collection Time: 06/05/22 12:10 PM Result Value Ref Range Lactate 2.0 0.7 - 2.0 mmol/L Respiratory pathogen panel Nasopharyngeal Collection Time: 06/05/22 1:05 PM Specimen: Nasopharyngeal Result Value Ref Range Influenza A RNA Not Detected Not Detected Influenza B RNA Not Detected Not Detected RSV RNA Not Detected Not Detected COVID-19 RNA Not Detected Not Detected Coronavirus 229E RNA Not Detected Not Detected Coronavirus HKU1 RNA Not Detected Not Detected Coronavirus NL63 RNA Not Detected Not Detected Coronavirus OC43 RNA Not Detected Not Detected Adenovirus DNA Not Detected Not Detected Metapneumovirus RNA Not Detected Not Detected Rhinovirus/Enterovirus RNA Not Detected Not Detected Parainfluenza 1 RNA Not Detected Not Detected Parainfluenza 2 RNA Not Detected Not Detected Parainfluenza 3 RNA Not Detected Not Detected Parainfluenza 4 RNA Not Detected Not Detected B. pertussis DNA Not Detected Not Detected B. parapertussis DNA Not Detected Not Detected C. pneumoniae DNA Not Detected Not Detected M. pneumoniae DNA Not Detected Not Detected POCT glucose Collection Time: 06/05/22 2:22 PM Result Value Ref Range Glucose, POC 389 (H) 70 - 199 mg/dL ECG 12 lead Collection Time: 06/05/22 2:52 PM Result Value Ref Range Ventricular Rate EKG/Min 73 BPM Atrial Rate 73 BPM [place]-Interval (MSEC) 184 ms QRS-Interval (MSEC) 106 ms QT-Interval (MSEC) 442 ms QTc 486 ms P [place] 49 degrees R [place] -33 degrees T [place] 87 degrees Diagnosis Normal sinus rhythm Possible Left atrial enlargement Left axis deviation Septal infarct , age undetermined Abnormal ECG Arterial Blood gas w/Lactate POCT Collection Time: 06/05/22 3:17 PM Result Value Ref Range Lactate POC i-STAT 2.0 0.7 - 2.2 mmol/L pH POC 7.38 7.35 - 7.45 pCO2, Art POC 37 35 - 45 mmHg PO2 POC 53 (L) 80 - 105 mmHg CO2, total POC 23 20 - 30 mmol/L HCO3, POC 22 21 - 30 mmol/L BE POC -3 (L) -2 - 3 mmol/L O2 sat POC 86 (L) 95 - 98 % Troponin I high-sensitivity Collection Time: 06/05/22 3:21 PM Result Value Ref Range Trop I hs 4,261 (Critical) <=35 ng/L Basic metabolic panel Collection Time: 06/05/22 3:22 PM Result Value Ref Range Sodium 127 (L) 135 - 145 mmol/L Potassium, pl 3.9 3.3 - 4.9 mmol/L Chloride 88 (L) 97 - 110 mmol/L CO2 19 (L) 22 - 32 mmol/L Anion gap 20 (H) 2 - 15 mmol/L BUN 79 (H) 8 - 25 mg/dL Creatinine 9.13 (H) 0.80 - 1.30 mg/dL Glucose 294 (H) 70 - 199 mg/dL Calcium 8.2 (L) 8.5 - 10.3 mg/dL Magnesium Collection Time: 06/05/22 3:22 PM Result Value Ref Range Magnesium 2.1 1.4 - 2.5 mg/dL POCT [id number]-GLU-HCT, WB - ISTAT Collection Time: 06/05/22 3:22 PM Result Value Ref Range Na POC 126 (L) 135 - 145 mmol/L K POC 3.6 3.3 - 4.9 mmol/L Glucose POC i-STAT 287 (H) 70 - 199 mg/dL Hct, POC 30.0 (L) 38.9 - 50.3 % eGFR Collection Time: 06/05/22 3:22 PM Result Value Ref Range eGFR 6 (L) 90 - 130 mL/min/1.73 m2 POCT glucose Collection Time: 06/05/22 3:46 PM Result Value Ref Range Glucose, POC 279 (H) 70 - 199 mg/dL Basic metabolic panel Collection Time: 06/05/22 3:54 PM Result Value Ref Range Sodium 132 (L) 135 - 145 mmol/L Potassium, pl 4.1 3.3 - 4.9 mmol/L Chloride 87 (L) 97 - 110 mmol/L CO2 26 22 - 32 mmol/L Anion gap 19 (H) 2 - 15 mmol/L BUN 81 (H) 8 - 25 mg/dL Creatinine 9.08 (H) 0.80 - 1.30 mg/dL Glucose 276 (H) 70 - 199 mg/dL Calcium 8.1 (L) 8.5 - 10.3 mg/dL Lactate Collection Time: 06/05/22 3:54 PM Result Value Ref Range Lactate 1.6 0.7 - 2.0 mmol/L CBC with auto differential Collection Time: 06/05/22 3:54 PM Result Value Ref Range WBC 10.7 (H) 3.8 - 9.9 K/cumm Hgb 10.3 (L) 13.0 - 17.5 g/dL Hct 29.1 (L) 38.9 - 50.3 % Plt 238 150 - 400 K/cumm MPV 11.1 9.1 - 12.3 fL RBC 3.32 (L) 4.30 - 5.80 M/cumm MCV 87.7 81.3 - 96.4 fL MCH 31.0 27.1 - 33.3 pg MCHC 35.4 32.3 - 35.7 g/dL RDW CV 12.5 11.1 - 14.9 % RDW SD 40.3 35.7 - 48.1 fL NRBC abs 0.00 0.00 - 0.01 K/cumm Protime-INR Collection Time: 06/05/22 3:54 PM Result Value Ref Range PT 10.8 9.2 - 13.5 sec INR 1.0 0.9 - 1.2 aPTT Collection Time: 06/05/22 3:54 PM Result Value Ref Range aPTT 45 (H) 27 - 37 sec Type and screen Collection Time: 06/05/22 3:54 PM Result Value Ref Range ABO Rh A Positive Maribel, indirect Negative Differential, auto Collection Time: 06/05/22 3:54 PM Result Value Ref Range Neutrophil abs 9.2 (H) 1.7 - 6.5 K/cumm Imm gran abs 0.1 0.0 - 0.1 K/cumm Lymphocyte abs 0.6 (L) 0.8 - 3.3 K/cumm Monocyte abs 0.8 0.2 - 0.8 K/cumm Eosinophil abs 0.0 0.0 - 0.5 K/cumm Basophil abs 0.0 0.0 - 0.1 K/cumm Neutrophil pct 86.0 % Imm gran pct 0.8 % Lymphocyte pct 5.6 % Monocyte pct 7.4 % Eosinophil pct 0.1 % Basophil pct 0.1 % eGFR Collection Time: 06/05/22 3:54 PM Result Value Ref Range eGFR 6 (L) 90 - 130 mL/min/1.73 m2 Troponin I high-sensitivity Collection Time: 06/05/22 4:07 PM Result Value Ref Range Trop I hs 4,266 (Critical) <=35 ng/L Blood culture Blood Antecubital, right Collection Time: 06/05/22 5:06 PM Specimen: Antecubital, right; Blood Result Value Ref Range Report Preliminary Report: No growth to date. Blood culture Blood Antecubital, left Collection Time: 06/05/22 5:06 PM Specimen: Antecubital, left; Blood Result Value Ref Range Report Preliminary Report: No growth to date. POCT glucose Collection Time: 06/05/22 5:07 PM Result Value Ref Range Glucose, POC 275 (H) 70 - 199 mg/dL aPTT Collection Time: 06/05/22 6:34 PM Result Value Ref Range aPTT 38 (H) 27 - 37 sec Lipase Collection Time: 06/05/22 6:39 PM Result Value Ref Range Lipase 14 10 - 99 Units/L Cell count with reflex to differential, body fluid Collection Time: 06/05/22 8:36 PM Result Value Ref Range Specimen type, fld Peritoneal Color, fld Straw Clarity, fld Clear Clear Nucleated cells, fld 11 /cumm RBC, fld 0 /cumm Aerobic and anaerobic culture and gram stain Peritoneal dialysis fluid Abdominal Collection Time: 06/05/22 8:36 PM Specimen: Abdominal; Peritoneal dialysis fluid Result Value Ref Range Direct Specimen Exam Stain: Cytospin Gram stain shows: No polymorphonuclear leukocytes seen. Other cellular material present. No organisms seen. Report Preliminary Report: No growth to date. Cell Differential, Body Fluid Collection Time: 06/05/22 8:36 PM Result Value Ref Range Total cells diffed 100 cells Neutrophils, fld 4 % Lymphs, fld 9 % Monocyte, fld 68 % Macrophages, fld 18 % Mesothelial cells, fld 1 % Comprehensive metabolic panel Collection Time: 06/05/22 8:47 PM Result Value Ref Range Sodium 132 (L) 135 - 145 mmol/L Potassium, pl 3.6 3.3 - 4.9 mmol/L Chloride 90 (L) 97 - 110 mmol/L CO2 25 22 - 32 mmol/L Anion gap 17 (H) 2 - 15 mmol/L BUN 84 (H) 8 - 25 mg/dL Creatinine 9.77 (H) 0.80 - 1.30 mg/dL Glucose 180 70 - 199 mg/dL Calcium 7.8 (L) 8.5 - 10.3 mg/dL Bilirubin, total 0.6 0.1 - 1.2 mg/dL Protein, pl 6.3 (L) 6.5 - 8.5 g/dL Albumin 3.4 (L) 3.5 - 5.0 g/dL Alk phos 126 40 - 130 Units/L ALT 43 7 - 55 Units/L AST 46 10 - 50 Units/L CBC with auto differential Collection Time: 06/05/22 8:47 PM Result Value Ref Range WBC 9.1 3.8 - 9.9 K/cumm Hgb 9.3 (L) 13.0 - 17.5 g/dL Hct 26.0 (L) 38.9 - 50.3 % Plt 201 150 - 400 K/cumm MPV 11.3 9.1 - 12.3 fL RBC 2.95 (L) 4.30 - 5.80 M/cumm MCV 88.1 81.3 - 96.4 fL MCH 31.5 27.1 - 33.3 pg MCHC 35.8 (H) 32.3 - 35.7 g/dL RDW CV 12.6 11.1 - 14.9 % RDW SD 40.7 35.7 - 48.1 fL NRBC abs 0.00 0.00 - 0.01 K/cumm Magnesium Collection Time: 06/05/22 8:47 PM Result Value Ref Range Magnesium 1.9 1.4 - 2.5 mg/dL Phosphorus Collection Time: 06/05/22 8:47 PM Result Value Ref Range Phosphorus, pl 6.5 (H) 2.3 - 4.5 mg/dL Urinalysis reflex to microscopic and culture Urine Collection Time: 06/05/22 8:47 PM Specimen: Urine Result Value Ref Range Color, ur Yellow Yellow Clarity, ur Cloudy (A) Clear Specific gravity, ur 1.037 (H) 1.003 - 1.030 pH, urine 6.0 Protein, ur ql 3+ (A) Negative Glucose, ur ql 3+ (A) Negative Ketones, ur Negative Negative Bilirubin, ur Negative Negative Blood, ur 3+ (A) Negative Urobilinogen, ur <2.0 <2.0 mg/dL Nitrite, ur Negative Negative Leukocyte esterase, ur Negative Negative UA reflex comment Reflex to microscopic UA will be performed. Troponin I high-sensitivity Collection Time: 06/05/22 8:47 PM Result Value Ref Range Trop I hs 3,996 (Critical) <=35 ng/L Blood gas, arterial Collection Time: 06/05/22 8:47 PM Result Value Ref Range pH, Art 7.38 7.35 - 7.45 PCO2, Arterial 37 35 - 45 mmHg PO2, Arterial 76 (L) 83 - 108 mmHg HCO3 Art (Calculated) 22 20 - 30 mmol/L BE, art -3 mmol/L O2 Sat Art (Measured) 94 90 - 95 % Differential, auto Collection Time: 06/05/22 8:47 PM Result Value Ref Range Neutrophil abs 7.7 (H) 1.7 - 6.5 K/cumm Imm gran abs 0.1 0.0 - 0.1 K/cumm Lymphocyte abs 0.5 (L) 0.8 - 3.3 K/cumm Monocyte abs 0.7 0.2 - 0.8 K/cumm Eosinophil abs 0.0 0.0 - 0.5 K/cumm Basophil abs 0.0 0.0 - 0.1 K/cumm Neutrophil pct 85.3 % Imm gran pct 1.3 % Lymphocyte pct 5.8 % Monocyte pct 7.5 % Eosinophil pct 0.0 % Basophil pct 0.1 % Urinalysis, microscopic only Collection Time: 06/05/22 8:47 PM Result Value Ref Range WBC, ur 6-10 (A) 0 - 5 /HPF RBC, ur >50 (A) 0 - 2 /HPF Epithelial cells, squamous, ur 1-5 0 - 5 /HPF Epithelial cells, transitional, ur 1-5 0 - 0 /HPF Bacteria, ur 2+ (A) Mucous, ur Present (A) Hyaline casts, ur 11-20 (A) 0 - 10 /LPF Culture Reflex Comment Reflex conditions for urine culture (WBC >10) not met. eGFR Collection Time: 06/05/22 8:47 PM Result Value Ref Range eGFR 6 (L) 90 - 130 mL/min/1.73 m2 POCT glucose Collection Time: 06/05/22 9:13 PM Result Value Ref Range Glucose, POC 195 70 - 199 mg/dL POCT glucose Collection Time: 06/06/22 12:01 AM Result Value Ref Range Glucose, POC 192 70 - 199 mg/dL Blood gas, arterial Collection Time: 06/06/22 1:14 AM Result Value Ref Range pH, Art 7.39 7.35 - 7.45 PCO2, Arterial 37 35 - 45 mmHg PO2, Arterial 169 (H) 83 - 108 mmHg HCO3 Art (Calculated) 23 20 - 30 mmol/L BE, art -2 mmol/L O2 Sat Art (Measured) 99 (H) 90 - 95 % aPTT Collection Time: 06/06/22 3:41 AM Result Value Ref Range aPTT 65 (H) 27 - 37 sec POCT glucose Collection Time: 06/06/22 3:49 AM Result Value Ref Range Glucose, POC 164 70 - 199 mg/dL POCT glucose Collection Time: 06/06/22 8:06 AM Result Value Ref Range Glucose, POC 109 70 - 199 mg/dL I have reviewed the laboratory and radiology results. Pertinent findings include: Troponin peak at 4800 NT-proBNP 10907 CXR with bilateral fluffy opacities RUQ US reviewed consistent with cholecystitis Assessment/Plan: Mr. Garvin is a 51 year-old male who presented for complex PCI, also found to have likely cholecystitis, who was transferred to the ICU for management of acute hypoxemic respiratory failure. His hypoxemic respiratory failure was likely flash pulmonary edema in the setting of his known cardiac disease and hypertension, and fortunately he appears to be improved as of this morning with decrease inoxygen requirement. The concurrent issues of his NSTEMI, known CAD, and cholecystitis are complicated, however, as it is likely that he will need to be revascularized prior to any surgical intervention. He may be temporized with a percutaneous cholecystostomy if need be, although this would be higher risk given the need to remain on DAPT and potentially therapeutic anticoagulation. Interventions on his gallbladder are also further complicated by his dependence on peritoneal dialysis, as he may seed his peritoneal fluid with any interventions. NSTEMI In the setting of known coronary disease, cholecystitis, ESRD with poor clearance Consult cardiology regarding LHC and timing Able to lay flat as of this morning Will need pre-medication for contrast allergy (received prior to last cath at OSH without issue) Ideally would be revascularized prior to any intervention (if any) to his gallbladder given concerns for cholecystitis Continue dual antiplatelet therapy Continue atorvastatin Change metoprolol to q6 dosing Nitrogycerin drip currently off, on Imdur Continue heparin drip for 48 hours or unless directed otherwise by cardiology Cholecystitis With RUQ pain and ultrasound consistent with this diagnosis May need HIDA scan when feasible, would not delay LHC for this Continue meropenem for gram negative and anaerobic coverage Consult HPB pending LHC plans Will almost certainly need to be revascularized prior to any open surgical management, and given necessity of DAPT he may ultimately require a percutaneous cholecystostomy tube, but this will be complicated by his peritoneal dialysis needs Acute hypoxemic respiratory failure Likely related to flash pulmonary edema in the setting of hypertension, NSTEMI, HFpEF Needs aggressive volume removal with PD given minimal response to diuretics Aggressive blood pressure control Wean O2 as tolerated, currently on SC Hypertensive urgency/emergency With associated flash pulmonary edema Now controlled on oral agents Goal SBP 140-160 today Add back low dose clonidine to prevent rebound hypertension Continue amlodipine 10 mg daily, hydralazine 100 mg TID, Imdur 30 mg daily Decrease metoprolol and switch to q6 dosing (I.e. 12.5 mg q6 hours) ESRD On PD at home Renal following Needs aggressive fluid removal with PD, did not respond well to diuretics Clarify PD feasibility with ongoing suspicion for cholecystitis On calcitriol, phosphate binders DM Basal/bolus insulin per endocrinology Allow diet when feasible from procedural perspective Therapeutic anticoagulation Full code I have seen and examined this patient on the day of service. I have reviewed and confirmed the history, physical exam, laboratory and radiographic data with the resident as documented in his/her note. I have reviewed and discussed my treatment plan with the ICU team and other medical/investigations consultant staff. Conrad Akers MD Pulmonary/Critical Care documented in this encounter H&P Notes * Marcelina Pickard NP - 06/10/2022 10:33 AM CDT I have reviewed the H&P, examined the patient, and endorse the findings as written. Plan of Care : Based on the above findings, I consider Adelia Garvin Jr. to be an acceptable risk for : Procedure(s): REMOVE PERC ARTERIAL VAD (IMPELLA), DIFFERENT SESSION [id number] Cosigned by Champ Osborne MD PhD at 06/10/2022 10:55 AM CDT Source Note - Jeffrey Green MD - 06/07/2022 2:03 PM CDT . CCU ADMISSION HISTORY AND PHYSICAL Patient: Adelia Garvin Jr. Room: [facility] CATH ROOM/NO* Date: 06/07/2022 SUBJECTIVE CCU INDICATION: Cardiogenic shock HISTORY OF PRESENT ILLNESS Adelia Garvin Jr. is a 51 y.o. male with a history of CHF (EF 50% 2017), Afib (not on AC), HTN, CAD s/p stent 04/06 and 3 stent 12/07, T1DM (insulin pump at home), ESRD on PD, HLD, GERD, hyperparathyroidism, DDD, OA, gout, BEN on CPAP initially presented to [facility] for n/v and chest pain, transferred to [facility] for LHC/PCI, now presenting to CCU s/p complex PCI with impella and intubated. At the OSH he presented with 3d generalized weakness, chills, ROONEY, n/v, chest pain relieved by sublingual ntg. His labs were notable for trop 1.0-->1.09-->0.729, BNP 21114. He had a CT CAP showing cholelithiasis and likely PNA. RUQUS showed distended gallbladder with gallstones and gallbladder wall thickening, recommended HIDA scan. He was treated with ctx/azithromycin. He was started on a heparin gtt, cath 06/03 showed previous PCI to proximal and distal right coronary patent, 99% ostialcircumflex stenosis as well as 90% circumflex lesion after origin of largest OM branch, mild diffuse disease in LAD which does not appear to be flow limiting. Recommended PCI of left circumflex as optimal treatment, prompting transfer to [place]. He arrived at [place] 06/05. EKG showed sinus bradycardia, 1st deg AV block. Overnight, ACT was called for substernal chest pressure and hypoxemia, he was placed on BiPAP with improvement in oxygen saturation and transferred to the MICU, where he was placed on AVAPS. CXR showed significantly worsened pulmonary edema. Trop 4797 -> 4266 in the MICU, ekg unchanged from prior. NT ProBNP 15,490. Lactate 2.0. NT ProBNP 15,490. Lactate 2.0. Started on kaylah for cholecystitis. He was continued on heparin gtt, started on nitro gtt for BP control. He was weaned to nasal cannula. Underwent complex PCI 06/07, PCI revealed ostial circ lesion of 90%, large OM with 70% narrowing. Patient became hypotensive and hypoxemic requiring levo and epi gtt. The patient was intubated. The left dominant circumflex and OM were then stented. Impella was inserted. A swan liv catheter and L IJ trialysis were also placed. Arrived to CCU on ventilator settings 34/500/90/15, not on pressors, sedated with propofol. Impellaat p9. The trialysis line that was inserted had too long of a sheath so had to be exchanged. PAST MEDICAL HISTORY Past Medical History: Diagnosis Date CAD (coronary artery disease) Chest pain Diabetes mellitus (HCC) Diabetes mellitus type I (HCC) Dialysis patient ([facility]) (HCC) ESRD on dialysis ([facility]) ([facility]) GERD (gastroesophageal reflux disease) Hyperlipidemia Hypertension Sleep apnea SOB (shortness of breath) PAST SURGICAL HISTORY Past Surgical History: Procedure Laterality Date APPENDECTOMY Appendectomy APPENDECTOMY CORONARY ANGIOPLASTY WITH STENT PLACEMENT FEMUR SURGERY KNEE SURGERY knee surgery OPEN REDUCTION INTERNAL FIXATION ORIF OTHER SURGICAL HISTORY eye surg-vitrectomy ALLERGIES AND DRUG REACTIONS Allergies Allergen Reactions Allopurinol Other (See comments) and Shortness of breath Shuts my kidneys down per patient. Shuts my kidneys down per patient. Contrast Dye [Iodinated Contrast Media] Rash Other Rash Rash Iodinated Diagnostic Agents Ticagrelor Rash Rash FAMILY HISTORY Family History Problem Relation Age of Onset Heart attack Father SOCIAL AND FUNCTIONAL HISTORY Social History Tobacco Use Smoking status: Never Smokeless tobacco: Former Substance and Sexual Activity Drug use: No Sexual activity: Defer Alcohol Use: Not At Risk Frequency of Alcohol Consumption: Monthly or less Average Number of Drinks: 3 or 4 Frequency of Binge Drinking: Never PRIOR TO ADMISSION MEDICATIONS Medications Prior to Admission Medication Sig Dispense Refill Last Dose amLODIPine (NORVASC) 10 mg tablet Take 10 mg by mouth daily aspirin 81 mg enteric coated tablet Take 1 tablet by mouth daily atorvastatin (LIPITOR) 80 mg tablet Take 80 mg by mouth daily calcitRIOL (ROCALTROL) 0.25 mcg capsule Take 0.25 mcg by mouth daily calcium acetate,phosphat bind, (PHOSLO) 667 mg capsule Take 667 mg by mouth 4 (four) times a day (with meals and nightly) With meals and snack cetirizine (ZyrTEC) 10 mg tablet Take 10 mg by mouth daily as needed for allergies cholecalciferol (VITAMIN D-3) 2000 unit tablet Take 50,000 Units by mouth once a week cloNIDine (CATAPRES) 0.1 mg tablet Take 0.2 mg by mouth every 8 (eight) hours clopidogrel (PLAVIX) 75 mg tablet TAKE 1 TABLET BY MOUTH DAILY 90 tablet 0 colchicine (Colcrys) 0.6 mg tablet Take one tablet po every Monday, Monday and Christofer. doxycycline monohydrate (ADOXA) 50 mg tablet Take 50 mg by mouth 2 (two) times a day EZETIMIBE ORAL Take 10 mg by mouth daily furosemide (LASIX) 80 mg tablet Take 80 mg by mouth 2 (two) times a day hydrALAZINE (APRESOLINE) 100 mg tablet TAKE 1 TABLET BY MOUTH EVERY 8 HOURS 90 tablet 5 insulin aspart U-100 (NovoLOG) 100 unit/mL cartridge Inject under the skin Basal rate 1200 am to 0500 am 5.25; from 5 am to 8 pm 1.8; from 8pm to 12 am 5.5 isosorbide mononitrate ER (IMDUR) 30 mg 24 hr tablet TAKE 1 TABLET BY MOUTH EVERY DAY 90 tablet 0 meloxicam (MOBIC) 7.5 mg tablet Take 7.5 mg by mouth 2 (two) times a day metoprolol (LOPRESSOR) 100 mg tablet Take 100 mg by mouth every 12 (twelve) hours omeprazole (PriLOSEC) 20 mg capsule Take 20 mg by mouth daily pen needle, diabetic (BD Ultra-Fine Short Pen Needle) 31 gauge x 5/16 needle U ONE PEN NEEDLE TO INJ INSULIN SC QID ranolazine ER (RANEXA) 500 mg 12 hr tablet Take 500 mg by mouth 2 (two) times a day UNABLE TO FIND Zalacyclovir take one tablet three times daily CURRENT MEDICATIONS Scheduled Meds: [Oct] amLODIPine, 10 mg, oral, Daily aspirin, 162 mg, oral, Once [Oct] aspirin, 81 mg, oral, Daily [OCT Hold] atorvastatin, 80 mg, oral, Daily [Oct] calcitRIOL, 0.25 mcg, oral, Daily [OCT Hold] calcium acetate(phosphat bind), 667 mg, oral, QID [OCT Hold] cloNIDine, 0.1 mg, oral, BID [OCT Hold] clopidogreL, 75 mg, oral, Daily [OCT Hold] docusate sodium, 100 mg, oral, Daily [OCT Hold] ergocalciferol, 50,000 Units, oral, Weekly [Oct] ezetimibe, 10 mg, oral, Daily [OCT Hold] hydrALAZINE, 100 mg, oral, Q8H [OCT Hold] insulin glargine, 33 Units, subcutaneous, QAM [OCT Hold] insulin lispro, 0-10 Units, subcutaneous, TID with meals [OCT Hold] insulin lispro, 0.04 Units/kg, subcutaneous, TID [OCT Hold] insulin lispro, 9 Units, subcutaneous, TID with meals [OCT Hold] isosorbide mononitrate ER, 30 mg, oral, Daily [OCT Hold] meropenem, 500 mg, intravenous, Q24H [OCT Hold] metoprolol tartrate, 12.5 mg, oral, Q6H [OCT Hold] nystatin, 500,000 Units, swish & spit, QID [OCT Hold] pantoprazole DR, 40 mg, oral, Daily [Oct] polyethylene glycol, 17 g, oral, Daily [OCT Hold] ranolazine ER, 500 mg, oral, BID [Oct] terazosin, 2 mg, oral, Nightly PRN Medications Medication Dose Route Frequency Last Admin [Oct] acetaminophen (TYLENOL) tablet 325 mg 325 mg oral Q4H PRN [Oct] albuterol HFA (PROVENTIL HFA,VENTOLIN HFA,PROAIR HFA) 90 mcg/actuation inhaler 2 puff 2 puff inhalation Q6H PRN (RT) [Oct] dextrose gel in packet 15 g 15 g oral Q15 Min PRN Or [Oct] dextrose (D10W) 10% bolus 250 mL 250 mL intravenous Q15 Min PRN EPINEPHrine 2 mg in sodium chloride 0.9% 100 mL (0.02 mg/mL) infusion Continuous PRN 0.1 mcg/kg/minat 06/07/22 1346 fentaNYL (SUBLIMAZE) preservative free injection PRN 12.5 mcg at 06/07/22 1205 [OCT Hold] fluticasone propionate (FLONASE) 50 mcg/actuation nasal spray 2 spray 2 spray each nostril BID PRN [Oct] glucagon injection 1 mg 1 mg intramuscular Q30 Min PRN [Oct] heparin 1,000 unit/mL injection 2,000 Units 2,000 Units intravenous Q6H PRN Or [OCT Hold] heparin 1,000 unit/mL injection 3,000 Units 3,000 Units intravenous Q6H PRN 3,000 Units at 06/05/22 2100 heparin 1,000 unit/mL injection PRN 1,000 Units at 06/07/22 1319 [OCT Hold] lidocaine (LIDODERM) 5 % patch 1 patch 1 patch transdermal Daily PRN midazolam (VERSED) 1 mg/mL preservative free injection PRN 0.5 mg at 06/07/22 1310 norepinephrine in dextrose 5% (LEVOPHED) 8,000 mcg/250 mL (32 mcg/mL) infusion (premix) Continuous PRN 0.08 mcg/kg/min at 06/07/22 1359 [OCT Hold] ondansetron ODT (ZOFRAN-ODT) disintegrating tablet 4 mg 4 mg oral Q6H PRN Or [OCT Hold] ondansetron (ZOFRAN) injection 4 mg 4 mg intravenous Q6H PRN [OCT Hold] phenoL (CHLORASEPTIC) 1.4 % oral spray 1 spray 1 spray mouth/throat Q2H PRN phenylephrine (JONN-SYNEPHRINE) 0.5 mg/5 mL (100 mcg/mL) in sodium chloride 0.9% (premix) PRN 200 mcg at 06/07/22 1321 [OCT Hold] ramelteon (ROZEREM) tablet 8 mg 8 mg oral Nightly PRN REVIEW OF SYSTEMS 12 system review of systems performed. All negative except those listed in HPI. OBJECTIVE PHYSICAL EXAMINATION Vitals: 06/07/22 1115 BP: 155/69 Pulse: 73 Resp: 10 Temp: 37 ??C (98.6 ??F) SpO2: 96% Wt Readings from Last 3 Encounters: 06/06/22 (!) 140.8 kg (310 lb 6.4 oz) 01/21/21 132.9 kg (293 lb) 04/19/18 118.8 kg (262 lb) Gen: Intuabted, sedated HEENT: ETT in place. Trialysis line in L neck Eyes: PERRL. EOMI. Sclerae nonicteric noninjected. CV: Regular rate and rhythm. Normal S1-S2. No murmurs rubs or gallops. Lungs: Crackles throughout lung charles bilaterally Abdomen: Soft, nontender, nondistended, normal bowel sounds. Ext: No peripheral cyanosis. 2+ pitting edema MSK: Joints without gross effusions or limited ROM. Skin: No rashes. Neuro: PERRL, EOMI, moves all extremities to pain VENTILATOR SETTINGS (IF APPLICABLE) FiO2 (%): [60 %] 60 % INTAKE/OUTPUT DATA Intake/Output Summary (Last 24 hours) at 06/07/2022 1403 Last data filed at 06/07/2022 1100 Gross per 24 hour Intake 42199.04 ml Output 37656 ml Net -1701.96 ml REVIEW OF LABORATORY DATA I have reviewed the following: Lab Results Component Value Date WBC 11.6 (H) 06/06/2022 HGB 9.9 (L) 06/07/2022 HCT 30.0 (L) 06/07/2022 MCV 88.3 06/06/2022 LABPLAT 207 06/06/2022 Lab Results Component Value Date GLUCOSE 293 (H) 06/07/2022 CALCIUM 7.5 (L) 06/06/2022 SODIUM 132 (L) 06/06/2022 POTASSIUM 3.4 06/06/2022 CO2 25 06/06/2022 CHLORIDE 89 (L) 06/06/2022 BUNSER 82 (H) 06/06/2022 CREATININE 10.45 (H) 06/06/2022 Lab Results Component Value Date ALT 40 06/06/2022 AST 45 06/06/2022 ALKPHOS 135 (H) 06/06/2022 BILITOT 0.7 06/06/2022 Lab Results Component Value Date IRON 22 (L) 03/21/2017 TIBC 185 (L) 03/21/2017 FERRITIN 210 03/21/2017 Lab Results Component Value Date INR 1.0 06/05/2022 Lab Results Component Value Date HGBA1C 7.8 (H) 06/04/2022 Lab Results Component Value Date TSH 0.80 03/21/2017 Lab Results Component Value Date SPECGRAVU 1.037 (H) 06/05/2022 BLOODUR 3+ (A) 06/05/2022 LEUKESTUR Negative 06/05/2022 Lab Results Component Value Date TROPONINI 0.03 03/21/2017 Lab Results Component Value Date CHOL 149 06/04/2022 Lab Results Component Value Date HDL 34 (L) 06/04/2022 Lab Results Component Value Date LDLCALC 82 06/04/2022 LDL 101 11/05/2013 POCLDL 118 04/19/2018 Lab Results Component Value Date TRIG 165 (H) 06/04/2022 No components found for: 25OHVITD REVIEW OF IMAGES AND STUDIES I have reviewed the following: ASSESSMENT & PLAN No new Assessment & Plan notes have been filed under this hospital service since the last note was generated. Service: Critical Care Adelia Garvin Jr. is a 51 y.o. male with a history of CHF (EF 50% 2016), Afib (not on AC), HTN, CAD s/p stent 04/06 and 3 stent 12/07, T1DM (insulin pump at home), ESRD on PD, HLD, GERD, hyperparathyroidism, DDD, OA, gout, BEN on CPAP initially presented to [facility] for n/v and chest pain, transferred to [facility] for LHC/PCI, now presenting to CCU s/p complex PCI with impella and intubated. #Neuro #Sedation On propofol, fent gtt #Cardiac #Cardiogenic shock #NSTEMI s/p complex PCI #CAD S/p complex PCI to the LCx and OM, impella placed and pt was intubated and transferred to the CCU. Etiology of decompensation likely flash pulmonary edema leading to acute hypoxic respiratory distress. -Impella weaning as tolerated according to SG numbers; currently weaned to p8 -Renal consult for urgent HD -Continue veletri, wean as able -Daily CXR -Heparin gtt -Cont DAPT, atorva #HFrEF EF 50% Holding GDMT at this time #Afib Not on anticoagulation at home. -Holding BB given cardiogenic shock. 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 Etiology of respiratory decompensation is likely flash pulmonary edema, ARDS also possible. Less likely but also possible PNA -Wean ventilator settings as tolerated #Renal Pt has ESRD, on PD at home. Presenting to CCU in AHRF likely s/t volume overload. -Renal consult for CVVHD #Endo #T1DM Pt has T1DM; has insulin pump at home. Prior to intubation was on lantus 33u qam, humalog 9u tidac,resistant correctional humalog tidac, hs. -Continue current basal insulin -continue current slide -Hold mealtime insulin -Endo consult, appreciate recs #GI #Cholecystitis Patient with CT CAP and RUQUS c/f cholecystitis at OSH. Has been unable to get HIDA scan due to decompensation. -Gen surg consult, appreciate recs -HIDA scan when stable -Continue meropenem Jeffrey Green MD PGY2 Internal Medicine 06/07/22 2:03 PM Cosigned by Eric Reed MD at 06/09/2022 12:51 PM CDT * Jeffrey Green MD - 06/07/2022 2:03 PM CDT . CCU ADMISSION HISTORY AND PHYSICAL Patient: Adelia Garvin Jr. Room: [facility] CARDIAC CATH ROOM/NO* Date: 06/07/2022 SUBJECTIVE CCU INDICATION: Cardiogenic shock HISTORY OF PRESENT ILLNESS Adelia Garvin Jr. is a 51 y.o. male with a history of CHF (EF 50% 2016), Afib (not on AC), HTN, CAD s/p stent 04/06 and 3 stent 12/07, T1DM (insulin pump at home), ESRD on PD, HLD, GERD, hyperparathyroidism, DDD, OA, gout, BEN on CPAP initially presented to [facility] for n/v and chest pain, transferred to [facility] for LHC/PCI, now presenting to CCU s/p complex PCI with impella and intubated. At the OSH he presented with 3d generalized weakness, chills, ROONEY, n/v, chest pain relieved by sublingual ntg. His labs were notable for trop 1.0-->1.09-->0.729, BNP 46701. He had a CT CAP showing cholelithiasis and likely PNA. RUQUS showed distended gallbladder with gallstones and gallbladder wall thickening, recommended HIDA scan. He was treated with ctx/azithromycin. He was started on a heparin gtt, cath 06/03 showed previous PCI to proximal and distal right coronary patent, 99% ostialcircumflex stenosis as well as 90% circumflex lesion after origin of largest OM branch, mild diffuse disease in LAD which does not appear to be flow limiting. Recommended PCI of left circumflex as optimal treatment, prompting transfer to [place]. He arrived at [place] 06/05. EKG showed sinus bradycardia, 1st deg AV block. Overnight, ACT was called for substernal chest pressure and hypoxemia, he was placed on BiPAP with improvement in oxygen saturation and transferred to the MICU, where he was placed on AVAPS. CXR showed significantly worsened pulmonary edema. Trop 4797 -> 4266 in the MICU, ekg unchanged from prior. NT ProBNP 15,490. Lactate 2.0. NT ProBNP 15,490. Lactate 2.0. Started on kaylah for cholecystitis. He was continued on heparin gtt, started on nitro gtt for BP control. He was weaned to nasal cannula. Underwent complex PCI 06/07, PCI revealed ostial circ lesion of 90%, large OM with 70% narrowing. Patient became hypotensive and hypoxemic requiring levo and epi gtt. The patient was intubated. The left dominant circumflex and OM were then stented. Impella was inserted. A swan liv catheter and L IJ trialysis were also placed. Arrived to CCU on ventilator settings 34/500/90/15, not on pressors, sedated with propofol. Impellaat p9. The trialysis line that was inserted had too long of a sheath so had to be exchanged. PAST MEDICAL HISTORY Past Medical History: Diagnosis Date CAD (coronary artery disease) Chest pain Diabetes mellitus (HCC) Diabetes mellitus type I (HCC) Dialysis patient ([facility]) (HCC) ESRD on dialysis ([facility]) ([facility]) GERD (gastroesophageal reflux disease) Hyperlipidemia Hypertension Sleep apnea SOB (shortness of breath) PAST SURGICAL HISTORY Past Surgical History: Procedure Laterality Date APPENDECTOMY Appendectomy APPENDECTOMY CORONARY ANGIOPLASTY WITH STENT PLACEMENT FEMUR SURGERY KNEE SURGERY knee surgery OPEN REDUCTION INTERNAL FIXATION ORIF OTHER SURGICAL HISTORY eye surg-vitrectomy ALLERGIES AND DRUG REACTIONS Allergies Allergen Reactions Allopurinol Other (See comments) and Shortness of breath Shuts my kidneys down per patient. Shuts my kidneys down per patient. Contrast Dye [Iodinated Contrast Media] Rash Other Rash Rash Iodinated Diagnostic Agents Ticagrelor Rash Rash FAMILY HISTORY Family History Problem Relation Age of Onset Heart attack Father SOCIAL AND FUNCTIONAL HISTORY Social History Tobacco Use Smoking status: Never Smokeless tobacco: Former Substance and Sexual Activity Drug use: No Sexual activity: Defer Alcohol Use: Not At Risk Frequency of Alcohol Consumption: Monthly or less Average Number of Drinks: 3 or 4 Frequency of Binge Drinking: Never PRIOR TO ADMISSION MEDICATIONS Medications Prior to Admission Medication Sig Dispense Refill Last Dose amLODIPine (NORVASC) 10 mg tablet Take 10 mg by mouth daily aspirin 81 mg enteric coated tablet Take 1 tablet by mouth daily atorvastatin (LIPITOR) 80 mg tablet Take 80 mg by mouth daily calcitRIOL (ROCALTROL) 0.25 mcg capsule Take 0.25 mcg by mouth daily calcium acetate,phosphat bind, (PHOSLO) 667 mg capsule Take 667 mg by mouth 4 (four) times a day (with meals and nightly) With meals and snack cetirizine (ZyrTEC) 10 mg tablet Take 10 mg by mouth daily as needed for allergies cholecalciferol (VITAMIN D-3) 2000 unit tablet Take 50,000 Units by mouth once a week cloNIDine (CATAPRES) 0.1 mg tablet Take 0.2 mg by mouth every 8 (eight) hours clopidogrel (PLAVIX) 75 mg tablet TAKE 1 TABLET BY MOUTH DAILY 90 tablet 0 colchicine (Colcrys) 0.6 mg tablet Take one tablet po every Monday, Monday and Monday. doxycycline monohydrate (ADOXA) 50 mg tablet Take 50 mg by mouth 2 (two) times a day EZETIMIBE ORAL Take 10 mg by mouth daily furosemide (LASIX) 80 mg tablet Take 80 mg by mouth 2 (two) times a day hydrALAZINE (APRESOLINE) 100 mg tablet TAKE 1 TABLET BY MOUTH EVERY 8 HOURS 90 tablet 5 insulin aspart U-100 (NovoLOG) 100 unit/mL cartridge Inject under the skin Basal rate 1200 am to 0500 am 5.25; from 5 am to 8 pm 1.8; from 8pm to 12 am 5.5 isosorbide mononitrate ER (IMDUR) 30 mg 24 hr tablet TAKE 1 TABLET BY MOUTH EVERY DAY 90 tablet 0 meloxicam (MOBIC) 7.5 mg tablet Take 7.5 mg by mouth 2 (two) times a day metoprolol (LOPRESSOR) 100 mg tablet Take 100 mg by mouth every 12 (twelve) hours omeprazole (PriLOSEC) 20 mg capsule Take 20 mg by mouth daily pen needle, diabetic (BD Ultra-Fine Short Pen Needle) 31 gauge x 5/16 needle U ONE PEN NEEDLE TO INJ INSULIN SC QID ranolazine ER (RANEXA) 500 mg 12 hr tablet Take 500 mg by mouth 2 (two) times a day UNABLE TO FIND Zalacyclovir take one tablet three times daily CURRENT MEDICATIONS Scheduled Meds: [OCT Hold] amLODIPine, 10 mg, oral, Daily aspirin, 162 mg, oral, Once [Oct] aspirin, 81 mg, oral, Daily [OCT Hold] atorvastatin, 80 mg, oral, Daily [OCT Hold] calcitRIOL, 0.25 mcg, oral, Daily [OCT Hold] calcium acetate(phosphat bind), 667 mg, oral, QID [OCT Hold] cloNIDine, 0.1 mg, oral, BID [OCT Hold] clopidogreL, 75 mg, oral, Daily [OCT Hold] docusate sodium, 100 mg, oral, Daily [Oct] ergocalciferol, 50,000 Units, oral, Weekly [Oct] ezetimibe, 10 mg, oral, Daily [OCT Hold] hydrALAZINE, 100 mg, oral, Q8H [Oct] insulin glargine, 33 Units, subcutaneous, QAM [Oct] insulin lispro, 0-10 Units, subcutaneous, TID with meals [Oct] insulin lispro, 0.04 Units/kg, subcutaneous, TID [OCT Hold] insulin lispro, 9 Units, subcutaneous, TID with meals [Oct] isosorbide mononitrate ER, 30 mg, oral, Daily [Oct] meropenem, 500 mg, intravenous, Q24H [OCT Hold] metoprolol tartrate, 12.5 mg, oral, Q6H [Oct] nystatin, 500,000 Units, swish & spit, QID [Oct] pantoprazole DR, 40 mg, oral, Daily [Oct] polyethylene glycol, 17 g, oral, Daily [OCT Hold] ranolazine ER, 500 mg, oral, BID [Oct] terazosin, 2 mg, oral, Nightly PRN Medications Medication Dose Route Frequency Last Admin [Oct] acetaminophen (TYLENOL) tablet 325 mg 325 mg oral Q4H PRN [OCT Hold] albuterol HFA (PROVENTIL HFA,VENTOLIN HFA,PROAIR HFA) 90 mcg/actuation inhaler 2 puff 2 puff inhalation Q6H PRN (RT) [OCT Hold] dextrose gel in packet 15 g 15 g oral Q15 Min PRN Or [OCT Hold] dextrose (D10W) 10% bolus 250 mL 250 mL intravenous Q15 Min PRN EPINEPHrine 2 mg in sodium chloride 0.9% 100 mL (0.02 mg/mL) infusion Continuous PRN 0.1 mcg/kg/minat 06/07/22 1346 fentaNYL (SUBLIMAZE) preservative free injection PRN 12.5 mcg at 06/07/22 1205 [OCT Hold] fluticasone propionate (FLONASE) 50 mcg/actuation nasal spray 2 spray 2 spray each nostril BID PRN [OCT Hold] glucagon injection 1 mg 1 mg intramuscular Q30 Min PRN [OCT Hold] heparin 1,000 unit/mL injection 2,000 Units 2,000 Units intravenous Q6H PRN Or [OCT Hold] heparin 1,000 unit/mL injection 3,000 Units 3,000 Units intravenous Q6H PRN 3,000 Units at 06/05/22 2100 heparin 1,000 unit/mL injection PRN 1,000 Units at 06/07/22 1319 [OCT Hold] lidocaine (LIDODERM) 5 % patch 1 patch 1 patch transdermal Daily PRN midazolam (VERSED) 1 mg/mL preservative free injection PRN 0.5 mg at 06/07/22 1310 norepinephrine in dextrose 5% (LEVOPHED) 8,000 mcg/250 mL (32 mcg/mL) infusion (premix) Continuous PRN 0.08 mcg/kg/min at 06/07/22 1359 [OCT Hold] ondansetron ODT (ZOFRAN-ODT) disintegrating tablet 4 mg 4 mg oral Q6H PRN Or [OCT Hold] ondansetron (ZOFRAN) injection 4 mg 4 mg intravenous Q6H PRN [OCT Hold] phenoL (CHLORASEPTIC) 1.4 % oral spray 1 spray 1 spray mouth/throat Q2H PRN phenylephrine (JONN-SYNEPHRINE) 0.5 mg/5 mL (100 mcg/mL) in sodium chloride 0.9% (premix) PRN 200 mcg at 06/07/22 1321 [OCT Hold] ramelteon (ROZEREM) tablet 8 mg 8 mg oral Nightly PRN REVIEW OF SYSTEMS 12 system review of systems performed. All negative except those listed in HPI. OBJECTIVE PHYSICAL EXAMINATION Vitals: 06/07/22 1115 BP: 155/69 Pulse: 73 Resp: 10 Temp: 37 ??C (98.6 ??F) SpO2: 96% Wt Readings from Last 3 Encounters: 06/06/22 (!) 140.8 kg (310 lb 6.4 oz) 01/21/21 132.9 kg (293 lb) 04/19/18 118.8 kg (262 lb) Gen: Intuabted, sedated HEENT: ETT in place. Trialysis line in L neck Eyes: PERRL. EOMI. Sclerae nonicteric noninjected. CV: Regular rate and rhythm. Normal S1-S2. No murmurs rubs or gallops. Lungs: Crackles throughout lung charles bilaterally Abdomen: Soft, nontender, nondistended, normal bowel sounds. Ext: No peripheral cyanosis. 2+ pitting edema MSK: Joints without gross effusions or limited ROM. Skin: No rashes. Neuro: PERRL, EOMI, moves all extremities to pain VENTILATOR SETTINGS (IF APPLICABLE) FiO2 (%): [60 %] 60 % INTAKE/OUTPUT DATA Intake/Output Summary (Last 24 hours) at 06/07/2022 1403 Last data filed at 06/07/2022 1100 Gross per 24 hour Intake 58316.04 ml Output 44897 ml Net -1701.96 ml REVIEW OF LABORATORY DATA I have reviewed the following: Lab Results Component Value Date WBC 11.6 (H) 06/06/2022 HGB 9.9 (L) 06/07/2022 HCT 30.0 (L) 06/07/2022 MCV 88.3 06/06/2022 LABPLAT 207 06/06/2022 Lab Results Component Value Date GLUCOSE 293 (H) 06/07/2022 CALCIUM 7.5 (L) 06/06/2022 SODIUM 132 (L) 06/06/2022 POTASSIUM 3.4 06/06/2022 CO2 25 06/06/2022 CHLORIDE 89 (L) 06/06/2022 BUNSER 82 (H) 06/06/2022 CREATININE 10.45 (H) 06/06/2022 Lab Results Component Value Date ALT 40 06/06/2022 AST 45 06/06/2022 ALKPHOS 135 (H) 06/06/2022 BILITOT 0.7 06/06/2022 Lab Results Component Value Date IRON 22 (L) 03/21/2017 TIBC 185 (L) 03/21/2017 FERRITIN 210 03/21/2017 Lab Results Component Value Date INR 1.0 06/05/2022 Lab Results Component Value Date HGBA1C 7.8 (H) 06/04/2022 Lab Results Component Value Date TSH 0.80 03/21/2017 Lab Results Component Value Date SPECGRAVU 1.037 (H) 06/05/2022 BLOODUR 3+ (A) 06/05/2022 LEUKESTUR Negative 06/05/2022 Lab Results Component Value Date TROPONINI 0.03 03/21/2017 Lab Results Component Value Date CHOL 149 06/04/2022 Lab Results Component Value Date HDL 34 (L) 06/04/2022 Lab Results Component Value Date LDLCALC 82 06/04/2022 LDL 101 11/05/2013 POCLDL 118 04/19/2018 Lab Results Component Value Date TRIG 165 (H) 06/04/2022 No components found for: 25OHVITD REVIEW OF IMAGES AND STUDIES I have reviewed the following: ASSESSMENT & PLAN No new Assessment & Plan notes have been filed under this hospital service since the last note was generated. Service: Critical Care Adelia Garvin Jr. is a 51 y.o. male with a history of CHF (EF 50% 2016), Afib (not on AC), HTN, CAD s/p stent 04/06 and 3 stent 12/07, T1DM (insulin pump at home), ESRD on PD, HLD, GERD, hyperparathyroidism, DDD, OA, gout, BEN on CPAP initially presented to [facility] for n/v and chest pain, transferred to [facility] for LHC/PCI, now presenting to CCU s/p complex PCI with impella and intubated. #Neuro #Sedation On propofol, fent gtt #Cardiac #Cardiogenic shock #NSTEMI s/p complex PCI #CAD S/p complex PCI to the LCx and OM, impella placed and pt was intubated and transferred to the CCU. Etiology of decompensation likely flash pulmonary edema leading to acute hypoxic respiratory distress. -Impella weaning as tolerated according to SG numbers; currently weaned to p8 -Renal consult for urgent HD -Continue veletri, wean as able -Daily CXR -Heparin gtt -Cont DAPT, atorva #HFrEF EF 50% Holding GDMT at this time #Afib Not on anticoagulation at home. -Holding BB given cardiogenic shock. 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 Etiology of respiratory decompensation is likely flash pulmonary edema, ARDS also possible. Less likely but also possible PNA -Wean ventilator settings as tolerated #Renal Pt has ESRD, on PD at home. Presenting to CCU in AHRF likely s/t volume overload. -Renal consult for CVVHD #Endo #T1DM Pt has T1DM; has insulin pump at home. Prior to intubation was on lantus 33u qam, humalog 9u tidac,resistant correctional humalog tidac, hs. -Continue current basal insulin -continue current slide -Hold mealtime insulin -Endo consult, appreciate recs #GI #Cholecystitis Patient with CT CAP and RUQUS c/f cholecystitis at OSH. Has been unable to get HIDA scan due to decompensation. -Gen surg consult, appreciate recs -HIDA scan when stable -Continue meropenem Jeffrey Green MD PGY2 Internal Medicine 06/07/22 2:03 PM Cosigned by Eric Reed MD at 06/09/2022 12:51 PM CDT Associated attestation - Eric Reed MD - 06/09/2022 12:51 PM CDT Critital Care Services: Total Time Spent 45 minutes. Date:06/07/2022 Critical Care Time: I have spent 45 minutes in full attendance with this critically ill patient making frequent reassessments and decisions regarding this patient's complex medical care. Critical care time was exclusive of separately billable procedures, treating other patients and teaching time. Critical care was necessary to treat or prevent imminent or life-threatening deterioration of the following conditions: 1) acute hypoxemic respiratory failure 2) cardiogenic shock 3) acute cholecystitis Recommendations for treatment include: 1) acute hypoxemic respiratory failure. Chest x-ray reviewed that shows massive pulmonary edema. Patient had a very difficult time with oxygenation during his interventional procedure. Currently on-later support with pulmonary vasodilators -and continue ventilators support with pulmonary vasodilators. Wean oxygen as tolerated. -hemodialysis to remove fluid 2) cardiogenic shock . Impella placed for hypotension and low EF. [place]-Liv catheter reviewed that shows adequate cardiac output -continue Impella with heparin -continue dual antiplatelet therapy 3) acute cholecystitis. Patient cholecystitis initially diagnosed. -continue antibiotics Attending Documentation: I have seen and examined this patient on the day of service. I have reviewed and confirmed the history, physical exam, laboratory and radiographic data with the house staff as documented in the ICU resident note. I have reviewed and discussed my treatment plan with the ICU team and other medical/investigations consultant staff. * Marcelina Pickard NP - 06/07/2022 10:26 AM CDT I have reviewed the H&P, examined the patient, and endorse the findings as written. Plan of Care : Based on the above findings, I consider Adelia Garvin Jr. to be an acceptable risk for : Procedure(s): PCI MARIELLA MAJOR CORONARY C9600 - [id number] Cosigned by Champ Osborne MD PhD at 06/07/2022 11:04 AM CDT Source Note - Dewey Parra MD - 06/05/2022 5:40 PM CDT Critical Care Medicine History and Physical Subjective Patient is a 51 y.o. male admitted on 06/04/2022 9:32 PM with chief complaint of generalized weakness, n/v, diarrhea, and chest pain. HPI: Adelia Garvin Jr. is a 51 y.o. male with a history of CHF (EF 50% 2017), Afib (not on AC), HTN, CAD s/p stent 04/06 and 3 stent 12/07, T1DM (insulin pump at home), ESRD on PD, HLD, GERD, hyperparathyroidism, DDD, OA, gout, BEN on CPAP initially presented to [facility] for generalized weakness, n/v, diarrhea, and chest pain, transferred to [facility] for LHC/PCI scheduled for 06/06, and presenting to the MICU after he was placed on NIPPV during an ACT for hypoxic respiratory failure. At OSH, pt presented w 3d of generalized weakness, loss of appetite, chills, ROONEY, n/v/d, and intermittent chest pain relieved by sublingual ntg. Labs at OSH notable for WBC 6.1, hgb 10.2, plt 206, trop I 1.0->1.09->0.729, BNP 14405. CTAP cholelithiasis w mild gallbladder distension, airspace opacities of lingula/LL likely pna. RUQUS showed distended gallbladder with gallstones and gallbladder wall thickening, read as indeterminate and recommended hepatobiliary scintigraphy. He was startedon ctx/azithro for CAP. Cards consulted, started on heparin gtt, cath on 06/03 showed right coronary dominant circulation with previous PCI to proximal and distal right coronary patent. 99% ostial circumflex stenosis as well as 90% circumflex lesion after origin of largest OM branch. Mild diffuse disease in LAD which does not appear to be flow limiting. Recommended PCI of left circumflex as optimal treatment but given complexity and high risk given proximity to left main, recommended it be doneat tertiary center. Pt was transferred to [facility] floor overnight. Labs notable for Na 129, Wbc 7.7, hgb 9.5. EKG still sinus rosa, 1st degree AV block. Trop 4797 -> 4266 in the MICU. NT ProBNP 15,490. Lactate 2.0. RPP negative. He was continued on heparin gtt ASA81, plavix 75, atorva 80, zetia 10mg, imdur, metop at a reduced dose for rosa for his NSTEMI. He got PD overnight, net -600. Pt was transferred to the MICU after an ACT for hypoxic resp failure. CXR showed significantly worsened pulmonary edema. He was put on NIPPV, and put on AVAPS at 100% FiO2 in the MICU. Trop downtrended to 4266. EKG no significant changes from prior. He was started nitro gtt for blood pressure control. Past Medical History: Diagnosis Date CAD (coronary artery disease) Chest pain Diabetes mellitus ([facility]) Diabetes mellitus type I ([facility]) Dialysis patient ([facility]) ESRD on dialysis ([facility]) GERD (gastroesophageal reflux disease) Hyperlipidemia Hypertension Sleep apnea SOB (shortness of breath) Past Surgical History: Procedure Laterality Date APPENDECTOMY Appendectomy APPENDECTOMY CORONARY ANGIOPLASTY WITH STENT PLACEMENT FEMUR SURGERY KNEE SURGERY knee surgery OPEN REDUCTION INTERNAL FIXATION ORIF OTHER SURGICAL HISTORY eye surg-vitrectomy Medications Prior to Admission Medication Sig Dispense Refill Last Dose amLODIPine (NORVASC) 10 mg tablet Take 10 mg by mouth daily aspirin 81 mg enteric coated tablet Take 1 tablet by mouth daily atorvastatin (LIPITOR) 80 mg tablet Take 80 mg by mouth daily calcitRIOL (ROCALTROL) 0.25 mcg capsule Take 0.25 mcg by mouth daily calcium acetate,phosphat bind, (PHOSLO) 667 mg capsule Take 667 mg by mouth 4 (four) times a day (with meals and nightly) With meals and snack cetirizine (ZyrTEC) 10 mg tablet Take 10 mg by mouth daily as needed for allergies cholecalciferol (VITAMIN D-3) 2000 unit tablet Take 50,000 Units by mouth once a week cloNIDine (CATAPRES) 0.1 mg tablet Take 0.2 mg by mouth every 8 (eight) hours clopidogrel (PLAVIX) 75 mg tablet TAKE 1 TABLET BY MOUTH DAILY 90 tablet 0 colchicine (Colcrys) 0.6 mg tablet Take one tablet po every Monday, Monday and Monday. doxycycline monohydrate (ADOXA) 50 mg tablet Take 50 mg by mouth 2 (two) times a day EZETIMIBE ORAL Take 10 mg by mouth daily furosemide (LASIX) 80 mg tablet Take 80 mg by mouth 2 (two) times a day hydrALAZINE (APRESOLINE) 100 mg tablet TAKE 1 TABLET BY MOUTH EVERY 8 HOURS 90 tablet 5 insulin aspart U-100 (NovoLOG) 100 unit/mL cartridge Inject under the skin Basal rate 1200 am to 0500 am 5.25; from 5 am to 8 pm 1.8; from 8pm to 12 am 5.5 isosorbide mononitrate ER (IMDUR) 30 mg 24 hr tablet TAKE 1 TABLET BY MOUTH EVERY DAY 90 tablet 0 meloxicam (MOBIC) 7.5 mg tablet Take 7.5 mg by mouth 2 (two) times a day metoprolol (LOPRESSOR) 100 mg tablet Take 100 mg by mouth every 12 (twelve) hours omeprazole (PriLOSEC) 20 mg capsule Take 20 mg by mouth daily pen needle, diabetic (BD Ultra-Fine Short Pen Needle) 31 gauge x 5/16 needle U ONE PEN NEEDLE TO INJ INSULIN SC QID ranolazine ER (RANEXA) 500 mg 12 hr tablet Take 500 mg by mouth 2 (two) times a day UNABLE TO FIND Zalacyclovir take one tablet three times daily Allergies Allergen Reactions Allopurinol Other (See comments) and Shortness of breath Shuts my kidneys down per patient. Shuts my kidneys down per patient. Contrast Dye [Iodinated Contrast Media] Rash Other Rash Rash Iodinated Diagnostic Agents Ticagrelor Rash Rash Social History Tobacco Use Smoking status: Never Smokeless tobacco: Former Substance and Sexual Activity Drug use: No Sexual activity: Defer Alcohol Use: Not on file Family History Problem Relation Age of Onset Heart attack Father Scheduled Medications: amLODIPine, 10 mg, oral, Daily aspirin, 81 mg, oral, Daily atorvastatin, 80 mg, oral, Daily calcitRIOL, 0.25 mcg, oral, Daily calcium acetate(phosphat bind), 667 mg, oral, QID [Held by Provider] cloNIDine, 0.3 mg, oral, Q8H clopidogreL, 75 mg, oral, Daily docusate sodium, 100 mg, oral, Daily [START ON 06/06/2022] ergocalciferol, 50,000 Units, oral, Weekly ezetimibe, 10 mg, oral, Daily furosemide, , , gentamicin, , topical, Daily [START ON 06/06/2022] hydrALAZINE, 100 mg, oral, TID insulin glargine, 33 Units, subcutaneous, QAM insulin lispro, 0-10 Units, subcutaneous, TID with meals insulin lispro, 0.02 Units/kg, subcutaneous, TID with meals insulin lispro, 0.04 Units/kg, subcutaneous, TID isosorbide mononitrate ER, 30 mg, oral, Daily meropenem, 500 mg, intravenous, Q24H metoprolol tartrate, 50 mg, oral, BID pantoprazole DR, 40 mg, oral, Daily polyethylene glycol, 17 g, oral, Daily ranolazine ER, 500 mg, oral, BID terazosin, 2 mg, oral, Nightly Continuous Medications: peritoneal fluid with or without additives for CAPD, peritoneal fluid with or without additives for CCPD, peritoneal fluid with or without additives for CCPD, peritoneal fluid with or without additives for CCPD, peritoneal fluid with or without additives for CCPD, peritoneal fluid with or without additives for CCPD, peritoneal fluid with or without additives for CCPD, peritoneal fluid with or without additives for CCPD, peritoneal fluid with or without additives for CAPD, heparin, 0-33 Units/kg/hr, Last Rate: 10 Units/kg/hr (06/05/22 1600) nitroglycerin, 0-400 mcg/min, Last Rate: 60 mcg/min (06/05/22 172) PRN Medications: acetaminophen albuterol HFA dextrose OR dextrose fluticasone propionate glucagon heparin OR heparin lidocaine ondansetron ODT OR ondansetron phenoL ramelteon Review of Systems: Review of systems per HPI and otherwise all other systems are negative. Objective Vitals: Most Recent: Temp: [35.5 ??C (95.9 ??F)-37.8 ??C (100 ??F)] 37.8 ??C (100 ??F) Pulse: [49-75] 69 Resp: [20-27] 24 BP: (129-204)/(53-92) 167/92 FiO2 (%): [100 %] 100 % LDA: Urethral Catheter Temperature probe (Active) Placement Date/Time: 06/05/22 165 Catheter Type: Temperature probe Tube Size (Fr.): 14 Fr Number of days: 0 Vent settings: FiO2 (%): [100 %] 100 % Hemodynamic parameters for last 24 hours: I/O: Date 06/04/22699 - 06/05/2265806/05/22699 - 06/06/22 0659 Shift 2665-9449 2860-0792 24 Hour Total 8556-5757 0319-9488 24 Hour Total INTAKE P.O. 60 60 Other 50421 33955 Shift Total(mL/kg) 27786(83.5) 71090(83.5) OUTPUT Urine 0 0 Other 13008 64129 Stool 0 0 Shift Total(mL/kg) 72756(87.7) 59314(87.7) NET -603 -603 Weight (kg) 142 142 142 142 142 Physical Exam Constitutional: General: He is in acute distress. Appearance: He is obese. Eyes: General: No scleral icterus. Extraocular Movements: Extraocular movements intact. Pupils: Pupils are equal, round, and reactive to light. Cardiovascular: Rate and Rhythm: Normal rate and regular rhythm. Heart sounds: Normal heart sounds. Pulmonary: Breath sounds: Rales present. Abdominal: General: Bowel sounds are normal. Tenderness: There is abdominal tenderness. There is guarding. Musculoskeletal: Right lower leg: Edema present. Left lower leg: Edema present. Skin: General: Skin is warm and dry. Neurological: General: No focal deficit present. Mental Status: He is alert and oriented to person, place, and time. Psychiatric: Mood and Affect: Mood normal. Behavior: Behavior normal. Lab/Radiology/Diagnostic Review: Recent Results (from the past 24 hour(s)) Comprehensive metabolic panel Collection Time: 06/04/22 10:52 PM Result Value Ref Range Sodium 129 (L) 135 - 145 mmol/L Potassium, pl 4.0 3.3 - 4.9 mmol/L Chloride 88 (L) 97 - 110 mmol/L CO2 24 22 - 32 mmol/L Anion gap 17 (H) 2 - 15 mmol/L BUN 82 (H) 8 - 25 mg/dL Creatinine 8.95 (H) 0.80 - 1.30 mg/dL Glucose 185 70 - 199 mg/dL Calcium 8.6 8.5 - 10.3 mg/dL Bilirubin, total 0.5 0.1 - 1.2 mg/dL Protein, pl 6.5 6.5 - 8.5 g/dL Albumin 3.6 3.5 - 5.0 g/dL Alk phos 115 40 - 130 Units/L ALT 37 7 - 55 Units/L AST 53 (H) 10 - 50 Units/L CBC with auto differential Collection Time: 06/04/22 10:52 PM Result Value Ref Range WBC 7.7 3.8 - 9.9 K/cumm Hgb 9.5 (L) 13.0 - 17.5 g/dL Hct 27.2 (L) 38.9 - 50.3 % Plt 195 150 - 400 K/cumm MPV 11.3 9.1 - 12.3 fL RBC 3.10 (L) 4.30 - 5.80 M/cumm MCV 87.7 81.3 - 96.4 fL MCH 30.6 27.1 - 33.3 pg MCHC 34.9 32.3 - 35.7 g/dL RDW CV 12.5 11.1 - 14.9 % RDW SD 40.2 35.7 - 48.1 fL NRBC abs 0.00 0.00 - 0.01 K/cumm Pro B-type natriuretic peptide Collection Time: 06/04/22 10:52 PM Result Value Ref Range NT-proBNP 15,490 (H) <=300 pg/mL Troponin I high-sensitivity Collection Time: 06/04/22 10:52 PM Result Value Ref Range Trop I hs 4,797 (Critical) <=35 ng/L Differential, auto Collection Time: 06/04/22 10:52 PM Result Value Ref Range Neutrophil abs 6.1 1.7 - 6.5 K/cumm Imm gran abs 0.1 0.0 - 0.1 K/cumm Lymphocyte abs 0.8 0.8 - 3.3 K/cumm Monocyte abs 0.8 0.2 - 0.8 K/cumm Eosinophil abs 0.0 0.0 - 0.5 K/cumm Basophil abs 0.0 0.0 - 0.1 K/cumm Neutrophil pct 79.1 % Imm gran pct 0.6 % Lymphocyte pct 10.1 % Monocyte pct 10.2 % Eosinophil pct 0.0 % Basophil pct 0.0 % eGFR Collection Time: 06/04/22 10:52 PM Result Value Ref Range eGFR 6 (L) 90 - 130 mL/min/1.73 m2 Critical result callback Cardio chemistry Collection Time: 06/04/22 10:52 PM Result Value Ref Range Date Notified [id number] Time Notified 99 Test name Trop Called/Read Back Denisse Connelly RN Credentials RN Called By dm Lipid panel Collection Time: 06/04/22 10:52 PM Result Value Ref Range Cholesterol 149 30 - 199 mg/dL Triglycerides 165 (H) <=149 mg/dL HDL 34 (L) >=40 mg/dL LDL, calculated 82 <=129 mg/dL Non-HDL Cholesterol 115 mg/dL Chol/HDL ratio 4 Beta-hydroxybutyrate Collection Time: 06/04/22 10:52 PM Result Value Ref Range Beta-Hydroxybutyrate <0.1 0.0 - 0.5 mmol/L Hemoglobin A1c Collection Time: 06/04/22 10:52 PM Result Value Ref Range Hgb A1C 7.8 (H) 4.0 - 5.6 % Estimated Average Glucose 177 mg/dL POCT glucose Collection Time: 06/04/22 11:04 PM Result Value Ref Range Glucose, POC 191 70 - 199 mg/dL Troponin I high-sensitivity series (baseline, 2hr, 4hr, 6hr) Collection Time: 06/05/22 2:37 AM Result Value Ref Range Trop I hs 4,614 (Critical) <=35 ng/L Protime-INR Collection Time: 06/05/22 4:27 AM Result Value Ref Range PT 10.1 9.2 - 13.5 sec INR 0.9 0.9 - 1.2 aPTT Collection Time: 06/05/22 4:27 AM Result Value Ref Range aPTT 23 (L) 27 - 37 sec Troponin I high-sensitivity 2-hour Collection Time: 06/05/22 4:27 AM Result Value Ref Range Trop I hs 4,555 (Critical) <=35 ng/L Trop I hs pct delta -1 % Trop I hs interp Insignificant POCT glucose Collection Time: 06/05/22 6:33 AM Result Value Ref Range Glucose, POC 373 (H) 70 - 199 mg/dL POCT glucose Collection Time: 06/05/22 8:45 AM Result Value Ref Range Glucose, POC 458 (Critical) 70 - 199 mg/dL Glucose comment 1 Glu2: RN/ Notified POCT glucose Collection Time: 06/05/22 8:47 AM Result Value Ref Range Glucose, POC 398 (H) 70 - 199 mg/dL POCT glucose Collection Time: 06/05/22 10:07 AM Result Value Ref Range Glucose, POC 403 (H) 70 - 199 mg/dL aPTT Collection Time: 06/05/22 11:04 AM Result Value Ref Range aPTT 29 27 - 37 sec POCT glucose Collection Time: 06/05/22 11:23 AM Result Value Ref Range Glucose, POC 402 (H) 70 - 199 mg/dL Glucose comment 1 Glu2: RN/MD Notified Beta-hydroxybutyrate Collection Time: 06/05/22 12:10 PM Result Value Ref Range Beta-Hydroxybutyrate <0.1 0.0 - 0.5 mmol/L Lactate Collection Time: 06/05/22 12:10 PM Result Value Ref Range Lactate 2.0 0.7 - 2.0 mmol/L Respiratory pathogen panel Nasopharyngeal Collection Time: 06/05/22 1:05 PM Specimen: Nasopharyngeal Result Value Ref Range Influenza A RNA Not Detected Not Detected Influenza B RNA Not Detected Not Detected RSV RNA Not Detected Not Detected COVID-19 RNA Not Detected Not Detected Coronavirus 229E RNA Not Detected Not Detected Coronavirus HKU1 RNA Not Detected Not Detected Coronavirus NL63 RNA Not Detected Not Detected Coronavirus OC43 RNA Not Detected Not Detected Adenovirus DNA Not Detected Not Detected Metapneumovirus RNA Not Detected Not Detected Rhinovirus/Enterovirus RNA Not Detected Not Detected Parainfluenza 1 RNA Not Detected Not Detected Parainfluenza 2 RNA Not Detected Not Detected Parainfluenza 3 RNA Not Detected Not Detected Parainfluenza 4 RNA Not Detected Not Detected B. pertussis DNA Not Detected Not Detected B. parapertussis DNA Not Detected Not Detected C. pneumoniae DNA Not Detected Not Detected M. pneumoniae DNA Not Detected Not Detected POCT glucose Collection Time: 06/05/22 2:22 PM Result Value Ref Range Glucose, POC 389 (H) 70 - 199 mg/dL Arterial Blood gas w/Lactate POCT Collection Time: 06/05/22 3:17 PM Result Value Ref Range Lactate POC i-STAT 2.0 0.7 - 2.2 mmol/L pH POC 7.38 7.35 - 7.45 pCO2, Art POC 37 35 - 45 mmHg PO2 POC 53 (L) 80 - 105 mmHg CO2, total POC 23 20 - 30 mmol/L HCO3, POC 22 21 - 30 mmol/L BE POC -3 (L) -2 - 3 mmol/L O2 sat POC 86 (L) 95 - 98 % Troponin I high-sensitivity Collection Time: 06/05/22 3:21 PM Result Value Ref Range Trop I hs 4,261 (Critical) <=35 ng/L Basic metabolic panel Collection Time: 06/05/22 3:22 PM Result Value Ref Range Sodium 127 (L) 135 - 145 mmol/L Potassium, pl 3.9 3.3 - 4.9 mmol/L Chloride 88 (L) 97 - 110 mmol/L CO2 19 (L) 22 - 32 mmol/L Anion gap 20 (H) 2 - 15 mmol/L BUN 79 (H) 8 - 25 mg/dL Creatinine 9.13 (H) 0.80 - 1.30 mg/dL Glucose 294 (H) 70 - 199 mg/dL Calcium 8.2 (L) 8.5 - 10.3 mg/dL Magnesium Collection Time: 06/05/22 3:22 PM Result Value Ref Range Magnesium 2.1 1.4 - 2.5 mg/dL POCT [id number], WB - ISTAT Collection Time: 06/05/22 3:22 PM Result Value Ref Range Na POC 126 (L) 135 - 145 mmol/L K POC 3.6 3.3 - 4.9 mmol/L Glucose POC i-STAT 287 (H) 70 - 199 mg/dL Hct, POC 30.0 (L) 38.9 - 50.3 % eGFR Collection Time: 06/05/22 3:22 PM Result Value Ref Range eGFR 6 (L) 90 - 130 mL/min/1.73 m2 Basic metabolic panel Collection Time: 06/05/22 3:54 PM Result Value Ref Range Sodium 132 (L) 135 - 145 mmol/L Potassium, pl 4.1 3.3 - 4.9 mmol/L Chloride 87 (L) 97 - 110 mmol/L CO2 26 22 - 32 mmol/L Anion gap 19 (H) 2 - 15 mmol/L BUN 81 (H) 8 - 25 mg/dL Creatinine 9.08 (H) 0.80 - 1.30 mg/dL Glucose 276 (H) 70 - 199 mg/dL Calcium 8.1 (L) 8.5 - 10.3 mg/dL Lactate Collection Time: 06/05/22 3:54 PM Result Value Ref Range Lactate 1.6 0.7 - 2.0 mmol/L CBC with auto differential Collection Time: 06/05/22 3:54 PM Result Value Ref Range WBC 10.7 (H) 3.8 - 9.9 K/cumm Hgb 10.3 (L) 13.0 - 17.5 g/dL Hct 29.1 (L) 38.9 - 50.3 % Plt 238 150 - 400 K/cumm MPV 11.1 9.1 - 12.3 fL RBC 3.32 (L) 4.30 - 5.80 M/cumm MCV 87.7 81.3 - 96.4 fL MCH 31.0 27.1 - 33.3 pg MCHC 35.4 32.3 - 35.7 g/dL RDW CV 12.5 11.1 - 14.9 % RDW SD 40.3 35.7 - 48.1 fL NRBC abs 0.00 0.00 - 0.01 K/cumm Protime-INR Collection Time: 06/05/22 3:54 PM Result Value Ref Range PT 10.8 9.2 - 13.5 sec INR 1.0 0.9 - 1.2 aPTT Collection Time: 06/05/22 3:54 PM Result Value Ref Range aPTT 45 (H) 27 - 37 sec Type and screen Collection Time: 06/05/22 3:54 PM Result Value Ref Range ABO Rh A Positive Maribel, indirect Negative Differential, auto Collection Time: 06/05/22 3:54 PM Result Value Ref Range Neutrophil abs 9.2 (H) 1.7 - 6.5 K/cumm Imm gran abs 0.1 0.0 - 0.1 K/cumm Lymphocyte abs 0.6 (L) 0.8 - 3.3 K/cumm Monocyte abs 0.8 0.2 - 0.8 K/cumm Eosinophil abs 0.0 0.0 - 0.5 K/cumm Basophil abs 0.0 0.0 - 0.1 K/cumm Neutrophil pct 86.0 % Imm gran pct 0.8 % Lymphocyte pct 5.6 % Monocyte pct 7.4 % Eosinophil pct 0.1 % Basophil pct 0.1 % eGFR Collection Time: 06/05/22 3:54 PM Result Value Ref Range eGFR 6 (L) 90 - 130 mL/min/1.73 m2 Troponin I high-sensitivity Collection Time: 06/05/22 4:07 PM Result Value Ref Range Trop I hs 4,266 (Critical) <=35 ng/L Images: XR Chest 1 View Result Date: 06/05/2022 Comparison is made to prior study of 06/04/2022 10:32 PM. In the interval, there has been development of moderate to severe pulmonary edema. No pneumothorax is present. No definite pleural effusion on the left. There is a tiny right pleural effusion. The heart size and mediastinal contour are unchanged. Electronically signed by: Saurav Emerson M.D. XR Chest 1 View Result Date: 06/05/2022 Stable cardiomediastinal silhouette with normal heart size. Increase in left base and retrocardiac airspace opacities which could be due to worsening atelectasis or pneumonia. Left lateral costophrenic angle haziness suggestive of small pleural effusion. Increased right infrahilar streaky opacitiesmay represent atelectasis or aspiration. No pneumothorax. Electronically signed by: Dimitrios Slater M.D. Assessment/Plan 51 y.o. male with a history of CHF (EF 50% 2016), Afib (not on AC), HTN, CAD s/p stent 04/06 and 3 stent 12/07, T1DM (insulin pump at home), ESRD on PD, HLD, GERD, hyperparathyroidism, DDD, OA, gout, BEN on CPAP presents to OSH with NSTEMI, CAP, transferred to [facility] for LHC/PCI scheduled for 06/06, andpresenting to the MICU after he was placed on NIPPV during an ACT for hypoxic respiratory failure. #Acute hypoxic respiratory failure From flash pulm edema; ddx includes worsening NSTEMI, decompensated HF, hypertensive emergency, worsening pneumonia - AVAPS - FBG -2L - S/p metolazone and 120 IV lasix during ACT. Minimal UOP in response. Makes urine at baseline 1w ago. #NSTEMI #CAD s/p PCI 03/2017 (RCA) and 3 stent 12/07 (prox, mid, and distal RCA) #CHF Trop downtrending since admission. EKG unchanged. - LHC 06/06 at 10:30am (NPO MN) - hep gtt - trend trop, EKG -ASA 81, Plavix 75 mg daily, atorvastatin 80 mg qhs, ezetimibe 10 mg daily -Isosorbide mononitrate 30 mg daily -continue lower dose metoprolol 50 mg PO q12h given bradycardia -Ranolazine 500 mg q12h - nitro gtt for chest pain and BP control #Abd pain Ddx includes gallstones, ascending cholangitis, pancreatitis, other intraabdominal infection. Very tender on exam cheko in RUQ. - check lipase, BCx, peritoneal fluid cell count/diff + culture/stain from PD 06/05 - Re-scan RUQUS, consider HIDA - KUB - start meropenam (06/05), 500 q24 for dialysis dosing. #ESRD on PD Discussed pulling off large volume of fluid with renal. - PD tonight - renal aware of plans for peritoneal labs - ctn home calcitriol 0.25, calcium acetate 667 #Pneumonia S/p 3d azithromycin, 4d CTX switched to meropenam on 06/05 for concern for intraabdominal infection RPP negative on admission - continue abx as above. #T1DM A1c 8.1 06/03. On insulin pump at home 1.7 units per hour for 8 AM-8Pm, 5.7 units at night. Has been given 33 units of lantus qAM and SSI at OSH. -lantus 33 units of lantus qAM, SSI, consistent carb when eating -endocrine c/s #Afib: #Hx DVT On metop 100 mg BID at home, not on home AC due to multiple bruising and bleeding per patient. -on tele - continue reduced dose metop 50 mg BID given bradycardia -on heparin gtt #HTN: -ctn home amlodipine 10, hydralazine 100 mg TID, imdur 30 mg daily -nitro gtt #HLD: - ctn home atorva 80, ezetimibe 10, gemfibrozil 600 BID, vascepa 1g BID. On both statin and fibrateagent at home. -hold gemfibrozil per pharmacy #Chronic angina: ctn home ranolozine 400 BID #Gout // #OA: No allopurinol. -hold colchicine 0.6 3x weekly due to n/v/diarrhea #BEN: cont CPAP #GERD: home famotidine 40 and omeprazole 20 -pantoprazole 40 mg #BPH: ctn home terazosin 2 #Constipation: ctn home docusate 100, miralax prn #Vit D def: ctn Vit D3 #DDD: home meloxicam 7.5 daily, lidocaine patch -tylenol prn, lidocaine patches Code Status: Full Dispo: Pending resp failure F (Feeding): consistent carb A (Analgesia): n/a S (Sedation): n/a T (Thromboembolic) ppx: hep gtt H (Head of Bed Elevation): 30 U (stress Ulcer ppx): pantoprazole 40 po G (Glycemic control): 33 glargine + 3U lispro TID + HDSSI Attending MD to make comment on patient risk/complexity. Dewey Parra MD Internal Medicine PGY-1 Cosigned by Matthew Lundy MD at 06/06/2022 7:52 AM CDT * Dewey Parra MD - 06/05/2022 5:40 PM CDT Critical Care Medicine History and Physical Subjective Patient is a 51 y.o. male admitted on 06/04/2022 9:32 PM with chief complaint of generalized weakness, n/v, diarrhea, and chest pain. HPI: Adelia Garvin Jr. is a 51 y.o. male with a history of CHF (EF 50% 2016), Afib (not on AC), HTN, CAD s/p stent 04/06 and 3 stent 12/07, T1DM (insulin pump at home), ESRD on PD, HLD, GERD, hyperparathyroidism, DDD, OA, gout, BEN on CPAP initially presented to [facility] for generalized weakness, n/v, diarrhea, and chest pain, transferred to [facility] for LHC/PCI scheduled for 06/06, and presenting to the MICU after he was placed on NIPPV during an ACT for hypoxic respiratory failure. At OSH, pt presented w 3d of generalized weakness, loss of appetite, chills, ROONEY, n/v/d, and intermittent chest pain relieved by sublingual ntg. Labs at OSH notable for WBC 6.1, hgb 10.2, plt 206, trop I 1.0->1.09->0.729, BNP 46111. CTAP cholelithiasis w mild gallbladder distension, airspace opacities of lingula/LL likely pna. RUQUS showed distended gallbladder with gallstones and gallbladder wall thickening, read as indeterminate and recommended hepatobiliary scintigraphy. He was startedon ctx/azithro for CAP. Cards consulted, started on heparin gtt, cath on 06/03 showed right coronary dominant circulation with previous PCI to proximal and distal right coronary patent. 99% ostial circumflex stenosis as well as 90% circumflex lesion after origin of largest OM branch. Mild diffuse disease in LAD which does not appear to be flow limiting. Recommended PCI of left circumflex as optimal treatment but given complexity and high risk given proximity to left main, recommended it be doneat tertiary center. Pt was transferred to [facility] floor overnight. Labs notable for Na 129, Wbc 7.7, hgb 9.5. EKG still sinus rosa, 1st degree AV block. Trop 4797 -> 4266 in the MICU. NT ProBNP 15,490. Lactate 2.0. RPP negative. He was continued on heparin gtt ASA81, plavix 75, atorva 80, zetia 10mg, imdur, metop at a reduced dose for rosa for his NSTEMI. He got PD overnight, net -600. Pt was transferred to the MICU after an ACT for hypoxic resp failure. CXR showed significantly worsened pulmonary edema. He was put on NIPPV, and put on AVAPS at 100% FiO2 in the MICU. Trop downtrended to 4266. EKG no significant changes from prior. He was started nitro gtt for blood pressure control. Past Medical History: Diagnosis Date CAD (coronary artery disease) Chest pain Diabetes mellitus ([facility]) Diabetes mellitus type I ([facility]) Dialysis patient ([facility]) ESRD on dialysis ([facility]) GERD (gastroesophageal reflux disease) Hyperlipidemia Hypertension Sleep apnea SOB (shortness of breath) Past Surgical History: Procedure Laterality Date APPENDECTOMY Appendectomy APPENDECTOMY CORONARY ANGIOPLASTY WITH STENT PLACEMENT FEMUR SURGERY KNEE SURGERY knee surgery OPEN REDUCTION INTERNAL FIXATION ORIF OTHER SURGICAL HISTORY eye surg-vitrectomy Medications Prior to Admission Medication Sig Dispense Refill Last Dose amLODIPine (NORVASC) 10 mg tablet Take 10 mg by mouth daily aspirin 81 mg enteric coated tablet Take 1 tablet by mouth daily atorvastatin (LIPITOR) 80 mg tablet Take 80 mg by mouth daily calcitRIOL (ROCALTROL) 0.25 mcg capsule Take 0.25 mcg by mouth daily calcium acetate,phosphat bind, (PHOSLO) 667 mg capsule Take 667 mg by mouth 4 (four) times a day (with meals and nightly) With meals and snack cetirizine (ZyrTEC) 10 mg tablet Take 10 mg by mouth daily as needed for allergies cholecalciferol (VITAMIN D-3) 2000 unit tablet Take 50,000 Units by mouth once a week cloNIDine (CATAPRES) 0.1 mg tablet Take 0.2 mg by mouth every 8 (eight) hours clopidogrel (PLAVIX) 75 mg tablet TAKE 1 TABLET BY MOUTH DAILY 90 tablet 0 colchicine (Colcrys) 0.6 mg tablet Take one tablet po every Monday, Monday and Monday. doxycycline monohydrate (ADOXA) 50 mg tablet Take 50 mg by mouth 2 (two) times a day EZETIMIBE ORAL Take 10 mg by mouth daily furosemide (LASIX) 80 mg tablet Take 80 mg by mouth 2 (two) times a day hydrALAZINE (APRESOLINE) 100 mg tablet TAKE 1 TABLET BY MOUTH EVERY 8 HOURS 90 tablet 5 insulin aspart U-100 (NovoLOG) 100 unit/mL cartridge Inject under the skin Basal rate 1200 am to 0500 am 5.25; from 5 am to 8 pm 1.8; from 8pm to 12 am 5.5 isosorbide mononitrate ER (IMDUR) 30 mg 24 hr tablet TAKE 1 TABLET BY MOUTH EVERY DAY 90 tablet 0 meloxicam (MOBIC) 7.5 mg tablet Take 7.5 mg by mouth 2 (two) times a day metoprolol (LOPRESSOR) 100 mg tablet Take 100 mg by mouth every 12 (twelve) hours omeprazole (PriLOSEC) 20 mg capsule Take 20 mg by mouth daily pen needle, diabetic (BD Ultra-Fine Short Pen Needle) 31 gauge x 5/16 needle U ONE PEN NEEDLE TO INJ INSULIN SC QID ranolazine ER (RANEXA) 500 mg 12 hr tablet Take 500 mg by mouth 2 (two) times a day UNABLE TO FIND Zalacyclovir take one tablet three times daily Allergies Allergen Reactions Allopurinol Other (See comments) and Shortness of breath Shuts my kidneys down per patient. Shuts my kidneys down per patient. Contrast Dye [Iodinated Contrast Media] Rash Other Rash Rash Iodinated Diagnostic Agents Ticagrelor Rash Rash Social History Tobacco Use Smoking status: Never Smokeless tobacco: Former Substance and Sexual Activity Drug use: No Sexual activity: Defer Alcohol Use: Not on file Family History Problem Relation Age of Onset Heart attack Father Scheduled Medications: amLODIPine, 10 mg, oral, Daily aspirin, 81 mg, oral, Daily atorvastatin, 80 mg, oral, Daily calcitRIOL, 0.25 mcg, oral, Daily calcium acetate(phosphat bind), 667 mg, oral, QID [Held by Provider] cloNIDine, 0.3 mg, oral, Q8H clopidogreL, 75 mg, oral, Daily docusate sodium, 100 mg, oral, Daily [START ON 06/06/2022] ergocalciferol, 50,000 Units, oral, Weekly ezetimibe, 10 mg, oral, Daily furosemide, , , gentamicin, , topical, Daily [START ON 06/06/2022] hydrALAZINE, 100 mg, oral, TID insulin glargine, 33 Units, subcutaneous, QAM insulin lispro, 0-10 Units, subcutaneous, TID with meals insulin lispro, 0.02 Units/kg, subcutaneous, TID with meals insulin lispro, 0.04 Units/kg, subcutaneous, TID isosorbide mononitrate ER, 30 mg, oral, Daily meropenem, 500 mg, intravenous, Q24H metoprolol tartrate, 50 mg, oral, BID pantoprazole DR, 40 mg, oral, Daily polyethylene glycol, 17 g, oral, Daily ranolazine ER, 500 mg, oral, BID terazosin, 2 mg, oral, Nightly Continuous Medications: peritoneal fluid with or without additives for CAPD, peritoneal fluid with or without additives for CCPD, peritoneal fluid with or without additives for CCPD, peritoneal fluid with or without additives for CCPD, peritoneal fluid with or without additives for CCPD, peritoneal fluid with or without additives for CCPD, peritoneal fluid with or without additives for CCPD, peritoneal fluid with or without additives for CCPD, peritoneal fluid with or without additives for CAPD, heparin, 0-33 Units/kg/hr, Last Rate: 10 Units/kg/hr (06/05/22 1600) nitroglycerin, 0-400 mcg/min, Last Rate: 60 mcg/min (06/05/22 1722) PRN Medications: acetaminophen albuterol HFA dextrose OR dextrose fluticasone propionate glucagon heparin OR heparin lidocaine ondansetron ODT OR ondansetron phenoL ramelteon Review of Systems: Review of systems per HPI and otherwise all other systems are negative. Objective Vitals: Most Recent: Temp: [35.5 ??C (95.9 ??F)-37.8 ??C (100 ??F)] 37.8 ??C (100 ??F) Pulse: [49-75] 69 Resp: [20-27] 24 BP: (129-204)/(53-92) 167/92 FiO2 (%): [100 %] 100 % LDA: Urethral Catheter Temperature probe (Active) Placement Date/Time: 06/05/22 1650 Catheter Type: Temperature probe Tube Size (Fr.): 14 Fr Number of days: 0 Vent settings: FiO2 (%): [100 %] 100 % Hemodynamic parameters for last 24 hours: I/O: Date 06/04/22 0700 - 06/05/22 0659 06/05/22 0700 - 06/06/22 0659 Shift 2625-2938 0245-3551 24 Hour Total 8388-9777 0833-5582 24 Hour Total INTAKE P.O. 60 60 Other 59232 84313 Shift Total(mL/kg) 62797(83.5) 91534(83.5) OUTPUT Urine 0 0 Other 88565 46693 Stool 0 0 Shift Total(mL/kg) 05901(87.7) 69050(87.7) NET -603 -603 Weight (kg) 142 142 142 142 142 Physical Exam Constitutional: General: He is in acute distress. Appearance: He is obese. Eyes: General: No scleral icterus. Extraocular Movements: Extraocular movements intact. Pupils: Pupils are equal, round, and reactive to light. Cardiovascular: Rate and Rhythm: Normal rate and regular rhythm. Heart sounds: Normal heart sounds. Pulmonary: Breath sounds: Rales present. Abdominal: General: Bowel sounds are normal. Tenderness: There is abdominal tenderness. There is guarding. Musculoskeletal: Right lower leg: Edema present. Left lower leg: Edema present. Skin: General: Skin is warm and dry. Neurological: General: No focal deficit present. Mental Status: He is alert and oriented to person, place, and time. Psychiatric: Mood and Affect: Mood normal. Behavior: Behavior normal. Lab/Radiology/Diagnostic Review: Recent Results (from the past 24 hour(s)) Comprehensive metabolic panel Collection Time: 06/04/22 10:52 PM Result Value Ref Range Sodium 129 (L) 135 - 145 mmol/L Potassium, pl 4.0 3.3 - 4.9 mmol/L Chloride 88 (L) 97 - 110 mmol/L CO2 24 22 - 32 mmol/L Anion gap 17 (H) 2 - 15 mmol/L BUN 82 (H) 8 - 25 mg/dL Creatinine 8.95 (H) 0.80 - 1.30 mg/dL Glucose 185 70 - 199 mg/dL Calcium 8.6 8.5 - 10.3 mg/dL Bilirubin, total 0.5 0.1 - 1.2 mg/dL Protein, pl 6.5 6.5 - 8.5 g/dL Albumin 3.6 3.5 - 5.0 g/dL Alk phos 115 40 - 130 Units/L ALT 37 7 - 55 Units/L AST 53 (H) 10 - 50 Units/L CBC with auto differential Collection Time: 06/04/22 10:52 PM Result Value Ref Range WBC 7.7 3.8 - 9.9 K/cumm Hgb 9.5 (L) 13.0 - 17.5 g/dL Hct 27.2 (L) 38.9 - 50.3 % Plt 195 150 - 400 K/cumm MPV 11.3 9.1 - 12.3 fL RBC 3.10 (L) 4.30 - 5.80 M/cumm MCV 87.7 81.3 - 96.4 fL MCH 30.6 27.1 - 33.3 pg MCHC 34.9 32.3 - 35.7 g/dL RDW CV 12.5 11.1 - 14.9 % RDW SD 40.2 35.7 - 48.1 fL NRBC abs 0.00 0.00 - 0.01 K/cumm Pro B-type natriuretic peptide Collection Time: 06/04/22 10:52 PM Result Value Ref Range NT-proBNP 15,490 (H) <=300 pg/mL Troponin I high-sensitivity Collection Time: 06/04/22 10:52 PM Result Value Ref Range Trop I hs 4,797 (Critical) <=35 ng/L Differential, auto Collection Time: 06/04/22 10:52 PM Result Value Ref Range Neutrophil abs 6.1 1.7 - 6.5 K/cumm Imm gran abs 0.1 0.0 - 0.1 K/cumm Lymphocyte abs 0.8 0.8 - 3.3 K/cumm Monocyte abs 0.8 0.2 - 0.8 K/cumm Eosinophil abs 0.0 0.0 - 0.5 K/cumm Basophil abs 0.0 0.0 - 0.1 K/cumm Neutrophil pct 79.1 % Imm gran pct 0.6 % Lymphocyte pct 10.1 % Monocyte pct 10.2 % Eosinophil pct 0.0 % Basophil pct 0.0 % eGFR Collection Time: 06/04/22 10:52 PM Result Value Ref Range eGFR 6 (L) 90 - 130 mL/min/1.73 m2 Critical result callback Cardio chemistry Collection Time: 06/04/22 10:52 PM Result Value Ref Range Date Notified [id number] Time Notified 99 Test name Trop Called/Read Back Denisse Connelly RN Credentials RN Called By dm Lipid panel Collection Time: 06/04/22 10:52 PM Result Value Ref Range Cholesterol 149 30 - 199 mg/dL Triglycerides 165 (H) <=149 mg/dL HDL 34 (L) >=40 mg/dL LDL, calculated 82 <=129 mg/dL Non-HDL Cholesterol 115 mg/dL Chol/HDL ratio 4 Beta-hydroxybutyrate Collection Time: 06/04/22 10:52 PM Result Value Ref Range Beta-Hydroxybutyrate <0.1 0.0 - 0.5 mmol/L Hemoglobin A1c Collection Time: 06/04/22 10:52 PM Result Value Ref Range Hgb A1C 7.8 (H) 4.0 - 5.6 % Estimated Average Glucose 177 mg/dL POCT glucose Collection Time: 06/04/22 11:04 PM Result Value Ref Range Glucose, POC 191 70 - 199 mg/dL Troponin I high-sensitivity series (baseline, 2hr, 4hr, 6hr) Collection Time: 06/05/22 2:37 AM Result Value Ref Range Trop I hs 4,614 (Critical) <=35 ng/L Protime-INR Collection Time: 06/05/22 4:27 AM Result Value Ref Range PT 10.1 9.2 - 13.5 sec INR 0.9 0.9 - 1.2 aPTT Collection Time: 06/05/22 4:27 AM Result Value Ref Range aPTT 23 (L) 27 - 37 sec Troponin I high-sensitivity 2-hour Collection Time: 06/05/22 4:27 AM Result Value Ref Range Trop I hs 4,555 (Critical) <=35 ng/L Trop I hs pct delta -1 % Trop I hs interp Insignificant POCT glucose Collection Time: 06/05/22 6:33 AM Result Value Ref Range Glucose, POC 373 (H) 70 - 199 mg/dL POCT glucose Collection Time: 06/05/22 8:45 AM Result Value Ref Range Glucose, POC 458 (Critical) 70 - 199 mg/dL Glucose comment 1 Glu2: RN/MD Notified POCT glucose Collection Time: 06/05/22 8:47 AM Result Value Ref Range Glucose, POC 398 (H) 70 - 199 mg/dL POCT glucose Collection Time: 06/05/22 10:07 AM Result Value Ref Range Glucose, POC 403 (H) 70 - 199 mg/dL aPTT Collection Time: 06/05/22 11:04 AM Result Value Ref Range aPTT 29 27 - 37 sec POCT glucose Collection Time: 06/05/22 11:23 AM Result Value Ref Range Glucose, POC 402 (H) 70 - 199 mg/dL Glucose comment 1 Glu2: RN/MD Notified Beta-hydroxybutyrate Collection Time: 06/05/22 12:10 PM Result Value Ref Range Beta-Hydroxybutyrate <0.1 0.0 - 0.5 mmol/L Lactate Collection Time: 06/05/22 12:10 PM Result Value Ref Range Lactate 2.0 0.7 - 2.0 mmol/L Respiratory pathogen panel Nasopharyngeal Collection Time: 06/05/22 1:05 PM Specimen: Nasopharyngeal Result Value Ref Range Influenza A RNA Not Detected Not Detected Influenza B RNA Not Detected Not Detected RSV RNA Not Detected Not Detected COVID-19 RNA Not Detected Not Detected Coronavirus 229E RNA Not Detected Not Detected Coronavirus HKU1 RNA Not Detected Not Detected Coronavirus NL63 RNA Not Detected Not Detected Coronavirus OC43 RNA Not Detected Not Detected Adenovirus DNA Not Detected Not Detected Metapneumovirus RNA Not Detected Not Detected Rhinovirus/Enterovirus RNA Not Detected Not Detected Parainfluenza 1 RNA Not Detected Not Detected Parainfluenza 2 RNA Not Detected Not Detected Parainfluenza 3 RNA Not Detected Not Detected Parainfluenza 4 RNA Not Detected Not Detected B. pertussis DNA Not Detected Not Detected B. parapertussis DNA Not Detected Not Detected C. pneumoniae DNA Not Detected Not Detected M. pneumoniae DNA Not Detected Not Detected POCT glucose Collection Time: 06/05/22 2:22 PM Result Value Ref Range Glucose, POC 389 (H) 70 - 199 mg/dL Arterial Blood gas w/Lactate POCT Collection Time: 06/05/22 3:17 PM Result Value Ref Range Lactate POC i-STAT 2.0 0.7 - 2.2 mmol/L pH POC 7.38 7.35 - 7.45 pCO2, Art POC 37 35 - 45 mmHg PO2 POC 53 (L) 80 - 105 mmHg CO2, total POC 23 20 - 30 mmol/L HCO3, POC 22 21 - 30 mmol/L BE POC -3 (L) -2 - 3 mmol/L O2 sat POC 86 (L) 95 - 98 % Troponin I high-sensitivity Collection Time: 06/05/22 3:21 PM Result Value Ref Range Trop I hs 4,261 (Critical) <=35 ng/L Basic metabolic panel Collection Time: 06/05/22 3:22 PM Result Value Ref Range Sodium 127 (L) 135 - 145 mmol/L Potassium, pl 3.9 3.3 - 4.9 mmol/L Chloride 88 (L) 97 - 110 mmol/L CO2 19 (L) 22 - 32 mmol/L Anion gap 20 (H) 2 - 15 mmol/L BUN 79 (H) 8 - 25 mg/dL Creatinine 9.13 (H) 0.80 - 1.30 mg/dL Glucose 294 (H) 70 - 199 mg/dL Calcium 8.2 (L) 8.5 - 10.3 mg/dL Magnesium Collection Time: 06/05/22 3:22 PM Result Value Ref Range Magnesium 2.1 1.4 - 2.5 mg/dL POCT FY-G-POP-GLU-HCT, WB - ISTAT Collection Time: 06/05/22 3:22 PM Result Value Ref Range Na POC 126 (L) 135 - 145 mmol/L K POC 3.6 3.3 - 4.9 mmol/L Glucose POC i-STAT 287 (H) 70 - 199 mg/dL Hct, POC 30.0 (L) 38.9 - 50.3 % eGFR Collection Time: 06/05/22 3:22 PM Result Value Ref Range eGFR 6 (L) 90 - 130 mL/min/1.73 m2 Basic metabolic panel Collection Time: 06/05/22 3:54 PM Result Value Ref Range Sodium 132 (L) 135 - 145 mmol/L Potassium, pl 4.1 3.3 - 4.9 mmol/L Chloride 87 (L) 97 - 110 mmol/L CO2 26 22 - 32 mmol/L Anion gap 19 (H) 2 - 15 mmol/L BUN 81 (H) 8 - 25 mg/dL Creatinine 9.08 (H) 0.80 - 1.30 mg/dL Glucose 276 (H) 70 - 199 mg/dL Calcium 8.1 (L) 8.5 - 10.3 mg/dL Lactate Collection Time: 06/05/22 3:54 PM Result Value Ref Range Lactate 1.6 0.7 - 2.0 mmol/L CBC with auto differential Collection Time: 06/05/22 3:54 PM Result Value Ref Range WBC 10.7 (H) 3.8 - 9.9 K/cumm Hgb 10.3 (L) 13.0 - 17.5 g/dL Hct 29.1 (L) 38.9 - 50.3 % Plt 238 150 - 400 K/cumm MPV 11.1 9.1 - 12.3 fL RBC 3.32 (L) 4.30 - 5.80 M/cumm MCV 87.7 81.3 - 96.4 fL MCH 31.0 27.1 - 33.3 pg MCHC 35.4 32.3 - 35.7 g/dL RDW CV 12.5 11.1 - 14.9 % RDW SD 40.3 35.7 - 48.1 fL NRBC abs 0.00 0.00 - 0.01 K/cumm Protime-INR Collection Time: 06/05/22 3:54 PM Result Value Ref Range PT 10.8 9.2 - 13.5 sec INR 1.0 0.9 - 1.2 aPTT Collection Time: 06/05/22 3:54 PM Result Value Ref Range aPTT 45 (H) 27 - 37 sec Type and screen Collection Time: 06/05/22 3:54 PM Result Value Ref Range ABO Rh A Positive Maribel, indirect Negative Differential, auto Collection Time: 06/05/22 3:54 PM Result Value Ref Range Neutrophil abs 9.2 (H) 1.7 - 6.5 K/cumm Imm gran abs 0.1 0.0 - 0.1 K/cumm Lymphocyte abs 0.6 (L) 0.8 - 3.3 K/cumm Monocyte abs 0.8 0.2 - 0.8 K/cumm Eosinophil abs 0.0 0.0 - 0.5 K/cumm Basophil abs 0.0 0.0 - 0.1 K/cumm Neutrophil pct 86.0 % Imm gran pct 0.8 % Lymphocyte pct 5.6 % Monocyte pct 7.4 % Eosinophil pct 0.1 % Basophil pct 0.1 % eGFR Collection Time: 06/05/22 3:54 PM Result Value Ref Range eGFR 6 (L) 90 - 130 mL/min/1.73 m2 Troponin I high-sensitivity Collection Time: 06/05/22 4:07 PM Result Value Ref Range Trop I hs 4,266 (Critical) <=35 ng/L Images: XR Chest 1 View Result Date: 06/05/2022 Comparison is made to prior study of 06/04/2022 10:32 PM. In the interval, there has been development of moderate to severe pulmonary edema. No pneumothorax is present. No definite pleural effusion on the left. There is a tiny right pleural effusion. The heart size and mediastinal contour are unchanged. Electronically signed by: Saurav Emerson M.D. XR Chest 1 View Result Date: 06/05/2022 Stable cardiomediastinal silhouette with normal heart size. Increase in left base and retrocardiac airspace opacities which could be due to worsening atelectasis or pneumonia. Left lateral costophrenic angle haziness suggestive of small pleural effusion. Increased right infrahilar streaky opacitiesmay represent atelectasis or aspiration. No pneumothorax. Electronically signed by: Dimitrios Slater M.D. Assessment/Plan 51 y.o. male with a history of CHF (EF 50% 2017), Afib (not on AC), HTN, CAD s/p stent 04/06 and 3 stent 12/07, T1DM (insulin pump at home), ESRD on PD, HLD, GERD, hyperparathyroidism, DDD, OA, gout, BEN on CPAP presents to OSH with NSTEMI, CAP, transferred to [facility] for LHC/PCI scheduled for 06/06, andpresenting to the MICU after he was placed on NIPPV during an ACT for hypoxic respiratory failure. #Acute hypoxic respiratory failure From flash pulm edema; ddx includes worsening NSTEMI, decompensated HF, hypertensive emergency, worsening pneumonia - AVAPS - FBG -2L - S/p metolazone and 120 IV lasix during ACT. Minimal UOP in response. Makes urine at baseline 1w ago. #NSTEMI #CAD s/p PCI 03/2017 (RCA) and 3 stent 12/07 (prox, mid, and distal RCA) #CHF Trop downtrending since admission. EKG unchanged. - C 06/06 at 10:30am (NPO MN) - hep gtt - trend trop, EKG -ASA 81, Plavix 75 mg daily, atorvastatin 80 mg qhs, ezetimibe 10 mg daily -Isosorbide mononitrate 30 mg daily -continue lower dose metoprolol 50 mg PO q12h given bradycardia -Ranolazine 500 mg q12h - nitro gtt for chest pain and BP control #Abd pain Ddx includes gallstones, ascending cholangitis, pancreatitis, other intraabdominal infection. Very tender on exam cheko in RUQ. - check lipase, BCx, peritoneal fluid cell count/diff + culture/stain from PD 06/05 - Re-scan RUQUS, consider HIDA - KUB - start meropenam (06/05), 500 q24 for dialysis dosing. #ESRD on PD Discussed pulling off large volume of fluid with renal. - PD tonight - renal aware of plans for peritoneal labs - ctn home calcitriol 0.25, calcium acetate 667 #Pneumonia S/p 3d azithromycin, 4d CTX switched to meropenam on 06/05 for concern for intraabdominal infection RPP negative on admission - continue abx as above. #T1DM A1c 8.1 06/03. On insulin pump at home 1.7 units per hour for 8 AM-8Pm, 5.7 units at night. Has been given 33 units of lantus qAM and SSI at OSH. -lantus 33 units of lantus qAM, SSI, consistent carb when eating -endocrine c/s #Afib: #Hx DVT On metop 100 mg BID at home, not on home AC due to multiple bruising and bleeding per patient. -on tele - continue reduced dose metop 50 mg BID given bradycardia -on heparin gtt #HTN: -ctn home amlodipine 10, hydralazine 100 mg TID, imdur 30 mg daily -nitro gtt #HLD: - ctn home atorva 80, ezetimibe 10, gemfibrozil 600 BID, vascepa 1g BID. On both statin and fibrateagent at home. -hold gemfibrozil per pharmacy #Chronic angina: ctn home ranolozine 400 BID #Gout // #OA: No allopurinol. -hold colchicine 0.6 3x weekly due to n/v/diarrhea #BEN: cont CPAP #GERD: home famotidine 40 and omeprazole 20 -pantoprazole 40 mg #BPH: ctn home terazosin 2 #Constipation: ctn home docusate 100, miralax prn #Vit D def: ctn Vit D3 #DDD: home meloxicam 7.5 daily, lidocaine patch -tylenol prn, lidocaine patches Code Status: Full Dispo: Pending resp failure F (Feeding): consistent carb A (Analgesia): n/a S (Sedation): n/a T (Thromboembolic) ppx: hep gtt H (Head of Bed Elevation): 30 U (stress Ulcer ppx): pantoprazole 40 po G (Glycemic control): 33 glargine + 3U lispro TID + HDSSI Attending MD to make comment on patient risk/complexity. Dewey Parra MD Internal Medicine PGY-1 Cosigned by Matthew Lundy MD at 06/06/2022 7:52 AM CDT Associated attestation - Matthew Lundy MD - 06/06/2022 7:52 AM CDT Critical Care Time: I have spent 45 minutes in full attendance with this critically ill patient making frequent reassessments and decisions regarding this patient's complex medical care. Critical care time was exclusive of separately billable procedures, treating other patients and teaching time. Critical care was necessary to treat or prevent imminent or life-threatening deterioration of the following conditions: Acute respiratory failure, NSTEMI, ESRD, hyponatremia, possible pneumonia, pulmonary edema, possible cholecystitis. IDDM. Attending Documentation: NIV support. Nitro drip, f/u CXR/Blood gas, NSTEMI medical management. Cardiology recs. Rate control. Renal recs, Urgent RUQ US for cholecystitis assessment, meropenem added on to abx coverage. F/u BMP. BS control. I have seen and examined this patient on the day of service. I have reviewed and confirmed the history, physical exam, laboratory and radiographic data with the house staff as documented in the ICU resident note. I have reviewed and discussed my treatment plan with the ICU team and other medical/investigations consultant staff. * Russ Milner MD - 06/05/2022 12:51 AM CDT Cardiology History and Physical - General Cardiology Patient Name: Adelia Garvin Jr. : 1970 Date of Service: 06/05/22 Chief Complaint: generalized weakness, n/v, diarrhea, and chest pain HPI HPI: Adelia Garvin Jr. is a 51 y.o. male with a history of CHF (EF 50% 2016), Afib (not on AC), HTN, CAD s/p stent 04/06 and 3 stent 12/07, T1DM (insulin pump at home), ESRD on PD, HLD, GERD, hyperparathyroidism, DDD, OA, gout, BEN on CPAP initially presented to [facility] for generalized weakness, n/v, diarrhea, and chest pain now being transferred for LHC/PCI 06/06. Patient initially presented with generalized weakness for the last 3 days. He then began to endorsen/v and diarrhea as well as chest pain which waxes and wanes and improves with sublingual ntg. He also reported decreased appetite, chills, dyspnea with exertion, and nonproductive cough. Patient follows with [facility] for cardiology. He did have angiogram in 2020 which showed patent stents in RCA and PDA, previously jailed posterolateral occluded and 50% stenosis in branch of OM1. Initial labs on 06/02 significant for Na 136, K 3, Cr 5.90, WBC 6.1, Hgb 10.2, Plt 206, tbili 1.3, AST 29, ALT 33, Alk Phos 105, Lipase 65, troponin I 1.0->1.09->0.729, BNP 60157. Covid, influenza negative. CXR showed left basilar atelectasis-scarring. Abdominal pelvis CT showed cholelithiasis w/ mild gallbladder distention, airspace opacities of lingula and lower lobes likely pneumonia.RUQ US showed distended gallbladder with gallstones and gallbladder wall thickening, read as indeterminate and recommended hepatobiliary scintigraphy. Cardiology was consulted and started on heparin gtt as well as ceftriaxone/azithromycin. Did require 2L NC at OSH. Cardiac Cath on 06/03 showed right coronary dominant circulation with previous PCI to proximal and distal right coronary patent. 99% ostial circumflex stenosis as well as 90% circumflex lesion after origin of largest OM branch. Mild diffuse disease in LAD which does not appear to be flow limiting. Recommended PCI of left circumflexas optimal treatment but given complexity and high risk given proximity to left main, recommended it be done at tertiary center. Here, patient was afebrile, intermittently bradycardic to 49 (HR 49-52 intermittently at OSH well, asymptomatic), BP 129/61, O2 92 on RA. He did note 1-2/10 chest pain which he reports is better thanat the OSH, mild dyspnea, chronic nausea, and RUQ abdominal pain. (Pre-dialysis which delayed due to transfer) labs notable for Na 129, K 4.0, Cr 8.95, tbili 0.5, Alk phos 115, AST 53, ALT 37, NT-proBNP 15,490, Trop 4797, WBC 7.7, Hgb 9.5. EKG unchanged from prior (sinus rosa with 1st degree AV block). CXR on my review with LLL opacity and b/l pulmonary edema. Restarted heparin gtt overnight. Review of Systems: Review of systems as per HPI and, otherwise all other systems are negative. PMHX: has a past medical history of CAD (coronary artery disease), Chest pain, Diabetes mellitus (CMS/HCC), Diabetes mellitus type I (CMS/HCC), Dialysis patient (CMS/HCC), ESRD on dialysis (CMS/HCC),GERD (gastroesophageal reflux disease), Hyperlipidemia, Hypertension, Sleep apnea, and SOB (shortness of breath). PSHX: has a past surgical history that includes Other surgical history; Appendectomy; open reduction internal fixation; Knee surgery; Femur Surgery; Appendectomy; and Coronary angioplasty with stent. Family Hx: family history includes Heart attack in his father. Social Hx: Patient lives with son and is on disability. Denies smoking, alcohol, or other drug use. Allergies: Allergies Allergen Reactions Allopurinol Other (See comments) and Shortness of breath Shuts my kidneys down per patient. Shuts my kidneys down per patient. Contrast Dye [Iodinated Contrast Media] Rash Other Rash Rash Iodinated Diagnostic Agents Ticagrelor Rash Rash Home Medications: Plavix 75 mg daily Vitamin D 50,000 units weekly SL NTG 0.4 mg prn Asa 81 mg daily Calcitriol 0.25 mcg qAM Hydralazine 100 mg q8h Isosorbide mononitrate 30 mg daily Metoprolol tartrate 100 mg PO q12h Ezetimibe 10 mg daily Ranolazine 500 mg q12h Cetrizine 10 mg daily Furosemide 120 mg BID Calcium acetate 667 mg PO QID Famotidine 40 mg qhs Meloxicam 7.5 mg daily prn Atorvastatin 80 mg qhs Omeprazole 20 mg qam Colchicine 0.6 mg MWF Clonidine 0.3 mg PO q8h Gemfibrozil 600 mg BID Insulin pump Metolazone 5 mg daily Amlodipine 10 mg tablet Albuterol prn Vascepa 1g PO BID Docusate 100 mg daily Terazosin 2 mg qhs Current Medications: heparin, 7,500 Units, subcutaneous, Q8H ASHLEY peritoneal fluid with or without additives for CCPD, peritoneal fluid with or without additives for CCPD, peritoneal fluid with or without additives for CCPD, peritoneal fluid with or without additives for CAPD, Objective Vital Signs: 24hr Min/Max: Temp Min: 36.6 ??C (97.9 ??F) Max: 36.6 ??C (97.9 ??F) Pulse Min: 49 Max: 49 BP Min: 129/61 Max: 129/61 Resp Min: 20 Max: 20 SpO2 Min: 92 % Max: 92 % Most Recent: Vitals: 06/04/22 2135 BP: 129/61 Pulse: (!) 49 Resp: 20 Temp: 36.6 ??C (97.9 ??F) SpO2: 92% Intake/Output: No intake or output data in the 24 hours ending 06/05/22 005 Physical Exam: General appearance: no acute distress HEENT: NCAT, MMM, anicteric Lungs: b/l crackles noted, non-labored, on RA Heart: RRR, S1, S2 normal, no murmur, rub or gallop. Difficult to assess JVP due to body habitus, 2+ pitting edema up to knee b/l (pre-dialysis) Abdomen: soft, RUQ tenderness, no rebound guarding, normal bowel sounds. Extremities: extremities 2+ pitting edema, warm and well-perfused, equal pulses Skin: warm and dry Neurologic: No abnormal movements, non-focal exam Psych: Normal mood and affect Lab/Radiology/Diagnostic Review: Labs: Recent Labs Lab Units 06/04/22 2252 HEMOGLOBIN g/dL 9.5* HEMATOCRIT % 27.2* WBC K/cumm 7.7 PLATELETS K/cumm 195 Recent Labs Lab Units 06/04/22 2252 SODIUM mmol/L 129* POTASSIUM PLASMA mmol/L 4.0 CHLORIDE mmol/L 88* CO2 mmol/L 24 ANIONGAP mmol/L 17* BUN SERUM mg/dL 82* CREATININE mg/dL 8.95* CALCIUM mg/dL 8.6 Recent Labs Lab Units 06/04/22 2252 ALBUMIN g/dL 3.6 ALK PHOS Units/L 115 AST Units/L 53* ALT Units/L 37 BILIRUBIN TOTAL mg/dL 0.5 Cultures: Lab Results Component Value Date MICROBIOLOGY Final Report: No growth 03/23/2017 MICROBIOLOGY 03/21/2017 Final Report: Negative for: Chlamydia trachomatis rRNA Negative for: Neisseria gonorrhoeae rRNA MICROBIOLOGY Final Report: No growth 03/21/2017 MICROBIOLOGY Final Report: No growth 03/21/2017 I personally reviewed the Telemetry images with the following findings: N/a I personally reviewed the ECG images with the following findings: Sinus bradycardia w/ 1st degree AV block, left axis deviation, unchanged from prior TTE: 2017 EF 50% with hypokinetic apical, inferior, and basal inferior lateral segment, mild enlargementof left atrium Stress test: N/a Cardiac catheterization: Cath on 06/03 showed right coronary dominant circulation with previous PCI to proximal and distal right coronary patent. 99% ostial circumflex stenosis as well as 90% circumflex lesion after origin of largest OM branch. Mild diffuse disease in LAD which does not appear to be flow limiting. I personally reviewed the following images with the following findings: CXR on my review with LLL opacity and b/l pulmonary edema. Assessment/Plan Mr. Garvin is a 51 y.o. male with a history of CHF, Afib (not on AC), HTN, CAD s/p stent 04/06 and3 stent 12/07, T1DM (insulin pump at home), ESRD on PD, HLD, GERD, hyperparathyroidism, DDD, OA, gout, BEN on CPAP initially presented to [facility] for generalized weakness, n/v, diarrhea, andchest pain now being transferred for LHC/PCI 06/06. #CHF #CAD s/p PCI 03/2017 (RCA) and 3 stent 12/07 (prox, mid, and distal RCA) OSH txf for LHC/PCI w Dr. Osborne 06/06 at 10:30am. [facility]. He did have angiogram in 2020 which showed patent stents in RCA and PDA, previouslyjailed posterolateral occluded and 50% stenosis in branch of OM1. Endorsing chest pain iso n/v/diarrhea/ROONEY. Elevated troponin I 1.0->1.09->0.729, BNP 60595. EKG with sinus rhythm with left anterior superior hemiblock (no acute changes). Cardiology was consulted and started on heparin gtt. Did require 2L NC at OSH. Cardiac Cath on 06/03 showed right coronary dominant circulation with previous PCI to proximal and distal right coronary patent. 99% ostial circumflex stenosis as well as 90% circumflex lesion after origin of largest OM branch. Mild diffuse disease in LAD which does not appear to be flow limiting. Recommended PCI of left circumflex as optimal treatment but given complexity and high risk given proximity to left main, recommended it be done at tertiary center. Here trop HS elevated to 4797 (4.7 compared to previous trops), no chest pain, no changes in EKG->restarted heparin gtt -[facility] 06/06 at 10:30am (NPO MN) -heparin gtt -trend trops -ASA 81, Plavix 75 mg daily, atorvastatin 80 mg qhs, ezetimibe 10 mg daily, vascepa 1g PO BID -Isosorbide mononitrate 30 mg daily -reduce Metoprolol tartrate 100 mg PO q12h to metoprolol 50 mg PO q12h given bradycardia -Ranolazine 500 mg q12h -SL NTG 0.4 mg prn -hold Gemfibrozil 600 mg BID as contraindicated in renal replacement therapy per pharamcy #generalized weakness #RUQ abd pain Initially p/w nausea/ vomiting/CP improved with nitro, diarrhea, SOB, nonproductive cough. Labs notable for normal white count, elevated troponin I 1.0->1.09->0.729, BNP 45853, lipase 65. Covid, influenza negative. CXR showed left basilar atelectasis-scarring. Abdominal pelvis CT showed cholelithiasis w/ mild gallbladder distention, airspace opacities of lingula and lower lobes likely pneumonia. RUQ US showed distended gallbladder with gallstones and gallbladder wall thickening, read as indeterminate and recommended hepatobiliary scintigraphy. Continues to have RUQ abdominal pain on exam. Continues to have nausea which is chronic though vomiting and diarrhea have improved. Able to tole rate food. -consider HIDA scan (on PD, could consider timing MRCP with dialysis if necessary) (made NPO around4 AM) -CAD management as above -pneumonia management as below -holding home colchicine iso n/v/diarrhea #pneumonia Presented with 3 days of chills, nonproductive ROONEY. Initial WBC 6.1. CT with airspace opacities of lingula and lower lobes likely pneumonia. Treated w/ ceftriaxone, azithromycin. Now on RA. CXR on eview with LLL opacity and pulmonary edema. Continue to treat as CAP. -continue ceftriaxone 1g q24h (06/03-, azithromycin 500 mg x3 days (06/02-06/05) #T1DM A1c 8.1 06/03. On insulin pump at home 1.7 units per hour for 8 AM-8Pm, 5.7 units at night. Has been given 33 units of lantus qAM and SSI at OSH. -lantus 33 units of lantus qAM, SSI, consistent carb when eating -endocrine c/s #ESRD on PD // #Hyperparathyroidism 2/2 T1DM. Started PD 10/2019. Makes 1L urine/day. Does note urine has been decreasing for the past couple of days. -ctn home calcitriol 0.25, calcium acetate 667 -ctn home lasix 120 mg BID, metolazone 5 -renal c/s for PD #Afib: #Hx DVT On metop 100 mg BID at home, not on home AC due to multiple bruising and bleeding per patient. Did tolerate heparin gtt at OSH. -on tele -reduce metop 100 mg BID to metop 50 mg BID given bradycardia -on heparin gtt #HTN: ctn home amlodipine 10, hydral 100 TID, imdur 30 daily, metop 100 BID -ctn home amlodipine 10, hydralazine 100 mg TID, imdur 30 mg daily -metop reduced to 50 mg BID -held clonidine 0.3 mg Q8H due to bradycardia, re-evaluate later in day #HLD: ctn home atorva 80, ezetimibe 10, gemfibrozil 600 BID, vascepa 1g BID. On both statin and fibrate agent at home. -lipid panel -hold gemfibrozil per pharmacy #Chronic angina: ctn home ranolozine 400 BID #Gout // #OA: No allopurinol. -hold colchicine 0.6 3x weekly due to n/v/diarrhea #BEN: cont CPAP #GERD: home famotidine 40 and omeprazole 20 -pantoprazole 40 mg #BPH: ctn home terazosin 2 #Constipation: ctn home docusate 100, miralax prn #Vit D def: ctn Vit D3 #DDD: home meloxicam 7.5 daily, lidocaine patch -tylenol prn, lidocaine patches Code Status: full code Diet: NPO pending HIDA or MRCP scan DVT prophylaxis: heparin gtt Dispo: pending cath Russ Milner MD Internal Medicine, PGY-2 12:51 AM 06/05/22 Cosigned by Catherine Adams MD at 06/05/2022 1:44 PM CDT Associated attestation - Catherine Adams MD - 06/05/2022 1:44 PM CDT I have seen and examined the patient on 06/05/22. I agree with the findings and plan of care as documented in the resident's/fellow's note. Transferred for ACS/NSTEMI, CHF exacerbation (baseline EF unknown), pneumonia, cholecystitis. Has pul edema, hypoxia and shortness of breath on exertion along with orthopnea/PND. Continuing diuresis.Cards on board and on schedule for LHC and PCI ?tomorrow (per team). TTE after that. US liver at OSH concerning for cholecystitis - has constant RUQ pain, nausea, and had diarrhea last week. Patient tells me he has had intermittent symptoms like these since 2017 when he was first diagnosed with gall bladder disease but it was never this severe. LFT WNL now. HDS. Will pursue HIDA scan. documented in this encounter Procedure Notes * Won Navarro MD - 06/26/2022 1:08 PM CST Procedures ASSESSMENT AND PLAN Undergoing CCPD. Rx: 11.2 L/4 Exchs/(2.8L each) Last fill Icodexran 1 L. 24h UF 1074 ml Won Navarro MD publishing systems analyst Division of Nephrology NEPHROLOGY PROCEDURE NOTE Date of Service: 06/26/2022 I saw and evaluated the patient during PD. Indication was ESRD. 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 360 360 Other 02927 18582 Shift Total(mL/kg) 360(3) 14219(105.7) 87025(108.8) OUTPUT Urine(mL/kg/hr) 100(0.1) 100(0) 300 300 Other 38882 54822 Shift Total(mL/kg) 100(0.8) 20237(119) 66031(119.9) 300(2.6) 300(2.6) NET 260 -1547 -1287 -300 -300 Weight (kg) 119.7 116.1 116.1 116.1 116.1 116.1 I have reviewed current medications and the following labs. aspirin, 81 mg, oral, Daily atorvastatin, 80 mg, oral, Daily calcitRIOL, 0.25 mcg, oral, Daily calcium acetate(phosphat bind), 667 mg, oral, QID clopidogreL, 75 mg, oral, Daily ezetimibe, 10 mg, oral, Daily heparin, 5,000 Units, subcutaneous, Q8H [facility] [START ON 06/27/2022] insulin glargine, 35 Units, subcutaneous, QAM insulin lispro, 0-10 Units, subcutaneous, TID with meals insulin lispro, 0-5 Units, subcutaneous, Nightly insulin lispro, 0-5 Units, subcutaneous, Daily insulin lispro, 10 Units, subcutaneous, TID with meals insulin NPH, 40 Units, subcutaneous, Nightly isosorbide mononitrate ER, 30 mg, oral, Daily losartan, 12.5 mg, oral, Daily metoprolol tartrate, 25 mg, oral, BID pantoprazole DR, 40 mg, oral, Daily polyvinyl alcohol-povidone, 1 drop, each eye, QID ranolazine ER, 500 mg, oral, BID Recent Labs Lab Units 06/26/22 0323 06/24/22 0410 06/23/22 1434 WBC K/cumm 4.1 4.3 5.4 HEMOGLOBIN g/dL 7.6* 7.9* 8.2* PLATELETS K/cumm 250 206 215 Recent Labs Lab Units 06/26/22 0323 06/25/22 0436 06/24/22 0410 06/23/22 1435 06/23/22 1401 06/23/22 0421 06/22/22 2128 06/22/22 1521 06/21/22 2155 06/21/22 0838 SODIUM mmol/L 134* 135 134* < > 136 -- -- 138 136 139 POTASSIUM PLASMA mmol/L 3.6 3.9 3.9 < > 3.4 -- -- 3.7 4.0 4.0 CHLORIDE mmol/L 91* 93* 94* < > 96* -- -- 99 98 101 CO2 mmol/L 26 28 25 < > 25 -- -- 27 24 27 BUN SERUM mg/dL 47* 44* 46* < > 45* -- -- 42* 41* 36* CREATININE mg/dL 10.28* 9.57* 8.83* < > 8.21* -- -- 7.25* 6.03* 5.26* ALBUMIN g/dL -- -- -- -- -- -- -- 2.9* 2.7* 2.7* CALCIUM mg/dL 8.5 8.6 8.5 < > 8.3* -- -- 8.6 8.4* 8.4* MAGNESIUM mg/dL -- -- -- -- 2.8* 2.9* -- 2.9* 2.8* 2.8* PHOSPHORUS PLASMA mg/dL -- 7.9* -- -- 5.2* -- 5.8* -- 4.8* -- < > = values in this interval not displayed. Lab Results Component Value Date CALCIUM 8.5 06/26/2022 CAION 4.62 06/07/2022 PHOS 7.9 (H) 06/25/2022 Lab Results Component Value Date IRON 50 06/07/2022 TIBC 130 (L) 06/07/2022 TRANSFERSAT 38 06/07/2022 FERRITIN 2,062 (H) 06/07/2022 Won Navarro MD publishing systems analyst Nephrology Division OR ART DIRECTOR * Aleida Lambert, LOCKSTITCH HEMMER - 06/21/2022 2:02 PM CDTAssociated Order(s): LOCKSTITCH HEMMER EVALUATE AND TREAT VIDEOFLUOROSCOPIC SWALLOW STUDY Speech-Language Pathology: Videofluoroscopic Study of Swallow (VFSS/MBS) HPI/PMH CHF, CAD s/p multiple interventions, DM1, ESRD on PD, GERD, BEN CPAP transfer from OSH on 06/05. ACT for hypoxemia and chest pressure. S/p complex PCI with impella. Also has cholecystitis. Respiratory/Intubation Status: 06/07-06/19. Now 2L Imaging: CT 06/20 c/f bleeding: Esophagus appears normal...Minimal bibasilar dependent atelectasis.No pleural effusion or pneumothorax. No noncontrast CT evidence of bleeding Precautions: fall Current Diet Order: NPO Baseline Feeding Status: no dysphagia reported General Information Adelia Garvin Jr. 06/21/22 LOCKSTITCH HEMMER Received On: 06/21/22 General Observations: presents alert, easily followed instructions Reason for Referral:dysphagia/aspiration Did not c/o pain, RN present Patient Stated Goal/Comments: did not state Clinical Impression & Professional Recommendations Diet Solids Recommendation: Dysphagia diet-Phase 2 Diet Liquids Recommendations: Thin/regular Recommended Form of Medications: Crushed, With puree Compensatory Strategies/Modifications: Alternate solids and liquids, Swallow 2 times per bite, Small bites, Single sips Postural Recommendations: Upright 90 degrees, Upright 30 min after meal Assistance with feeding/swallowing: One to one assist with meals Specialty Instructions: assist with brushing teeth 2-3x/day Overall Clinical Impression/Additional Information: 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 Delayed swallow initiation and incomplete epiglottic inversion result in occasional laryngeal penetration of thin liquid (x3 of 7 trials) and of nectar-thick liquid x1 that is ejected fromthe laryngeal vestibule with completion of the swallow (deep laryngeal penetration to the level of the anterior VF x1 with thin liquid in absence of pharyngeal residue of pudding/solid). Incomplete epiglottic inversion, decreased tongue base retraction, and general pharyngeal weakness resulted in vallecular residue of pudding and solid that fills the vallecular space, with no sensation (pt denied sensation of residue and did not reflexively re-swallow). Cued repeat swallows and thin liquid washcleared vallecular residue of pudding, and moved vallecular residue of solid to pyriform where it was finally cleared with >1 cued repeat swallows. No aspiration. Assessment Details & Results Purpose and Procedure of Videofluoroscopic Study of Swallow: Videofluoroscopic Study of Swallow completed to assess oropharyngeal swallow function and safety/efficiency of the swallow so that diet recommendations can be made. This test is completed in conjunction with Radiology. Results of this test are indicative of performance at the time of the exam. Standard procedure is in lateral view at 90 degrees. Consistencies Administered: Thin liquids (via spoon & straw), Paterson thickened liquids (via spoon & straw), Purees, Honey thickened liquids via spoon, Solids. Patient took large sips requiring more than 1 swallow even when cued for small sip. Administered consistencies contain barium product. Thin Liquids: Laryngeal Penetration: Present Aspiration Present: No Penetration Aspiration Scale-Thin: 4-Material enters the airway, contacts the vocal folds and is ejected from the airway Paterson Thickened Liquids: Laryngeal Penetration: Present Aspiration Present: No Penetration Aspiration Scale-Paterson: 2-Material enters the airway, remains above the vocal folds and is ejected from the airway Honey Thickened Liquids: Laryngeal Penetration: None Aspiration Present: No Penetration Aspiration Scale-Honey: 1-Material does not enter airway Purees: Laryngeal Penetration: None Aspiration Present: No Penetration Aspiration Scale-Puree: 1-Material does not enter airway Solids: Laryngeal Penetration: None Aspiration Present: No Penetration Aspiration Scale-Solids: 1-Material does not enter airway MBSImp: MBSImp Results: Lip closure : 0-No labial escape Tongue Control with Bolus Hold: 0-Cohesive bolus between tongue to palatal seal Bolus Preparation/Mastication : 1-Slow prolonged chewing/mashing with complete re-collection Bolus Transport/Lingual Motion : 2-Slowed tongue motion Oral Residue: 2-Residue collection on oral structures Initiation of Pharyngeal Swallow : 2-Bolus head at posterior laryngeal surface of epiglottis Laryngeal Elevation : 1-Partial superior movement of thyroid cartilage with partial approximation of arytenoids to epiglottic petiole Anterior Hyoid Excursion: 1-Partial anterior movement Epiglottic Movement: 1-Partial inversion Laryngeal Vestibular Closure: 1-Incomplete, narrow column of air/contrast in laryngeal vestibule Pharyngeal Stripping Wave: 1-Present but diminished Pharyngeal Contraction (AP view only): Not assessed, No AP view Pharyngoesophageal Segment Opening : 0-Complete distention and complete duration, no obstruction offlow Tongue Base Retraction : 2-Narrow column of contrast or air between tongue base and posterior pharyngeal wall Pharyngeal Residue : 2-Collection of residue within or on pharyngeal structures Esophageal Clearance (upright position): Not assessed, No AP view NOMS: National Outcomes Measurement System: Level 5 Dysphagia Outcome and Severity Scale: Dysphagia Outcomes and Severity Scale: 5 Mild dysphagia Levels 1 & 2 on the MARK indicate need for nonoral nutrition. Treatment Treatment was not provided this date. Please reference care plan for treatment goals and details, if indicated. Plan LOCKSTITCH HEMMER Frequency of Services: 2-3x/wk LOCKSTITCH HEMMER Recommendation (Add'l Services): Inpatient Rehab Facility Next Visit Plan: treatment/therapy Additional Referrals: none at this time Discharge Summary Statement If this is the last swallow therapy visit, this serves as the discharge summary. * Aleida Lambert SLP - 06/21/2022 9:43 AM CDT Speech-Language Pathology: Clinical Bedside Swallow [facility]/PM Patient has medical history including: CHF, CAD, DM1, ESRD on PD, GERD, BEN CPAP transfer from OSH on 06/05. ACT for hypoxemia and chest pressure. S/p complex PCI with impella. Also has cholecystitis. Respiratory/Intubation Status: 06/07-06/19. Now 2L Imaging: CT 06/20 c/f bleeding: Esophagus appears normal...Minimal bibasilar dependent atelectasis.No pleural effusion or pneumothorax. No noncontrast CT evidence of bleeding Precautions: fall Current Diet Order:NPO, NG Baseline Feeding Status: no dysphagia reported General Information Adelia Garvin Jr. 06/21/22 General Observations: presents alert, oriented If pain >4, was RN notified? N/A Patient Stated Goal/Comments: not stated, agreeable to evaluation Clinical Impression & Professional Recommendations Diet Solids Recommendation: NPO Diet Liquids Recommendations: NPO for liquids, Ice chips only Recommended Form of Medications: Feeding tube Postural Recommendations: Upright 90 degrees Dysphagia Diagnosis: Suspect pharyngeal dysphagia Overall Clinical Impression/Additional Information: Patient's oral mechanism is unremarkable. Notedhoarse vocal quality, though good cued and reflexive cough strength and able to produce glottal stop. Presented PO trials of ice chips, thin liquid (via spoon and straw, single and consecutive swallows), puree, solid. Good mastication, good oral clearance. Mildly increased AP transit vs delayed swallow suspected with thin liquid. Palpable laryngeal elevation with swallow. Noted overt cough with thin liquids x1, across several trials. Recommend MBS for more definitive assessment of pharyngeal swallow function, to determine PO candidacy and guide potential diet recommendations, and to guide plan of care for dysphagia therapy. Patient is at increased risk for silent aspiration given prolonged intubation. Recommend MBS for more definitive assessment of pharyngeal swallow function, to determine PO candidacy and guide potential diet recommendations, and to guide plan of care for dysphagia therapy. Assessment Details & Results Consistencies Administered: Ice chips, Thin liquids, Purees, Solids MASA: Morrell Assessment of Swallowing Ability (MASA) Alertness: Alert Cooperation: Cooperative Auditory Comprehension: No abnormality detected Respiration: Chest clear Respiratory Rate (for swallow): Able to control breath rate for swallow Aphasia: Mild difficulty finding words or expressing ideas Apraxia: No abnormality detected Dysarthria: No abnormality detected Saliva: No abnormality detected Lip Seal: No abnormality detected Tongue Movement: Full range of motion Tongue Strength: No abnormality detected Tongue Coordination: No abnormality detected Gag: No gag (not tested) Palate: No abnormality detected Cough Reflex: No deficit noted Voluntary Cough: No abnormality detected Voice: Hoarse Trach: No trach Oral Preparation: No deficits noted Bolus Clearance: Fully cleared Oral Transit: Delay > 1 second Delay consistency: Thin liquids Pharyngeal Phase: Mildly restricted laryngeal elevation, Slow initiation Pharyngeal Response: Cough before, during, or after swallow MASA Score: 182 Dysphagia: No dysphagia detected (178-200) Aspiration Risk: No aspiration risk (170-200) NOMS: National Outcomes Measurement System: (pending MBS) Plan LOCKSTITCH HEMMER Frequency of Services: Pending instrumental assessment Further Assessment/Follow up Indicated: Recommendations: Follow-up videofluoroscopic swallowing study Next Visit Plan:instrumental evaluation Additional Referrals: none at this time Please reference care plan for treatment goals, if indicated. Discharge Summary Statement If this is the last swallow therapy visit, this serves as the discharge summary. * Aj Poe MD - 06/17/2022 7:27 PM CDTAssociated Order(s): Central Line Insertion Post-Procedure Diagnose(s): End stage renal disease (CMS/HCC) (HCC); Hypotension, unspecified hypotension type Central Line Insertion Date/Time: 06/17/2022 7:30 PM Performed by: Aj Poe MD Authorized by: Aj Poe MD [place] Protocol: RN Notified of Procedure: yes Informed consent: Patient/strategic partnership representative/guardian agrees and accepts and risks, benefits, alternatives discussed Patient's stated name/ matches armband: Patient unable to verbalize - armband matched to name and within medical record Allergies confirmed: yes Consent form signed, dated, timed; matches correct patient, intended procedure and site: YesImmediately prior to the procedure a time out was called: a verbal verification by the procedure participants confirmed correct patient identity, correct site/side marked and visible (if applicable); agreement on procedure to be done; and correct patient positioning Indications: Dialysis Anesthesia (see MAR for exact dosage) Anesthesia method: Local infiltration Local anesthetic: Lidocaine 1% Patient position: Flat Skin preparation: Skin prepped with 2% chlorhexidine Provider preparation: Cap, full body drape, gloves, gown, handwashing and mask Location: Left femoral Ultrasound guidance: Used for site marking, used for needle insertion and sterile probe cover used Needle inserted, vein idenitified then guidewire inserted easily into vein: No Successful placement: No First attempted left IJ HD line placement. Unable to pass micropuncture wire or stiff wire beyond about 10cm of wire. Next tried left femoral line. Passed wire without difficulty with supine position, but after dilation steps while advancing the catheter the patient flexed his hips, causing the catheter to kink. Given moderate venous bleeding, I decided to abort the procedure and hold pressure for 25 minutes. Hemostasis was achieved at this interval. Discuss failure to place a line with Ronny Brody, the patient's brother. Aj Poe MD Hat Blocking Operator, PGY-5 Cosigned by Rufino Flores MD at 06/20/2022 9:33 AM CDT * Lavern Morrison MD - 06/07/2022 10:17 PM CDTAssociated Order(s): Arterial Line Insertion Post-Procedure Diagnose(s): Hypotension, unspecified hypotension type Arterial Line Insertion Date/Time: 06/07/2022 10:17 PM Performed by: Lavern Morrison MD Authorized by: Lavern Morrison MD [place] Protocol: RN Notified of Procedure: yes Informed consent: Risks, benefits, alternatives discussed Patient's stated name/ matches armband: Patient unable to verbalize - armband matched to name and within medical record Allergies confirmed: yes Consent form signed, dated, timed; matches correct patient, intended procedure and site: Yes Imaging: N/a and pertinent imaging reviewed, correctly oriented and match to patient identifiers Lab/Diag test results: Pertinent lab/diag tests reviewed and match to patient identifiers Supplies, devices and special equipment are available: yes Site/side marked: yes Immediately prior to the procedure a time out was called: a verbal verification by the procedure participants confirmed correct patient identity, correct site/side marked and visible (if applicable);agreement on procedure to be done; and correct patient positioning Indications: multiple ABGs and hemodynamic monitoring Location: Left radial Anesthesia: None Patient skin preparation: chlorhexidine Ultrasound guidance: Sterile probe cover used, landmarks identified, used for needle insertion and used for site marking Patient preparation: Cap, gloves, gown and sterile probe cover Single percutaneous needle puncture: Yes Number of attempts: 2 Placement confirmed with arterial waveform: Yes Post-procedure: Line sutured, dressing applied and securement device afixed Post-procedure CMS: Unchanged Patient tolerance: Patient tolerated the procedure well with no immediate complications Complications: hematoma during insertion Complications comment: Small hematoma near insertion point Post Procedure Debrief: All guidewires, needles, sponges or other items are accounted for: yes Any special post procedure monitoring, testing or other considerations: n/a All specimens identified, labeled and matched to patient identification: n/a Responsible libertarian for transporting specimen(s) to lab determined: n/a Cosigned by Eric Reed MD at 06/09/2022 12:51 PM CDT documented in this encounter Consult Notes * Will Villavicencio MD - 06/23/2022 5:59 PM CDTAssociated Order(s): IP CONSULT TO CARDIOLOGY Cardiology Consult Note - General Cardiology Patient Name: Adelia Garvin Jr. : 1970 Date of Service: 06/23/22 Requesting Attending: Carey East* Reason for Consult: Other: NSTEMI HPI Adelia Garvin Jr. is a 51 y.o. male with a history of CHF (EF 50% 2016), Afib (not on AC), HTN, CAD s/p stent 04/06 and 3 stent 12/07, T1DM (insulin pump at home), ESRD on PD, HLD, GERD, hyperparathyroidism, DDD, OA, gout, BEN on CPAP initially presented to OSH for n/v and chest pain, transferred to [facility] for LHC/PCI, who presented to CCU s/p complex PCI with impella and intubated. Now extubated, tolerating PO intake, on home PD. Arrived at [place] from OSH on 06/05. EKG showed sinus bradycardia, 1st deg AV block. Transferred toMICU overnight after ACT called for acute hypoxic respiratory failure. In the MICU was started on kaylah for cholecystitis, continued on heparin gtt, and started on nitro gtt for BP control. He was weaned to nasal cannula and underwent complex PCI 06/07, PCI revealed ostial circ lesion of 90%, large OM with 70% narrowing. During PCI, patient became hypotensive and hypoxic. He was sent to the CCU intubated with impella, SGC, and LIJ trialysis. Over course of stay, had concern for mixed cardiogenic/distributive shock inaddition to acute hypoxic respiratory failure. Veletri, norepi, ccvrt were required for support. Impella was weaned slowly and removed 06/10. Pressors and vent settings were weaned slowly, and patient was ultimately extubated 06/20. Passed MBS, now tolerating PO intake. General Cardiology has been consulted for chest pain. Review of Systems: Review of systems as per HPI and, otherwise all other systems are negative. PMHX: has a past medical history of CAD (coronary artery disease), Chest pain, Diabetes mellitus (HCC), Diabetes mellitus type I (HCC), Dialysis patient ([facility]) (HCC), ESRD on dialysis ([facility]) (HCC), GERD (gastroesophageal reflux disease), Hyperlipidemia, Hypertension, Sleep apnea, and SOB (shortness of breath). PSHX: has a past surgical history that includes Other surgical history; Appendectomy; open reduction internal fixation; Knee surgery; Femur Surgery; Appendectomy; Coronary angioplasty with stent; andIR Central Line Placement > 5 Years (N/A, 06/18/2022). Family Hx: family history includes Heart attack in his father. Social Hx: reports that he has never smoked. He has quit using smokeless tobacco. He reports that he does not use drugs. Patient reports consuming alcoholic drinks monthly or less, with a daily consumption of 3 or 4 drinks. Patient denies daily consumption of 6 or more alcoholic drinks at one occasion. Allergies: Allergies Allergen Reactions Allopurinol Other (See comments) and Shortness of breath Shuts my kidneys down per patient. Shuts my kidneys down per patient. Chlorhexidine Gluconate Blisters With CHG bath Contrast Dye [Iodinated Contrast Media] Rash Other Rash Rash Iodinated Diagnostic Agents Ticagrelor Rash Rash Chlorhexidine Flushing (skin) CHG bath soap, Patient skin peels all over and becomes tender Home Medications: HOME MEDICATIONS : amLODIPine (NORVASC) 10 mg tablet aspirin 81 mg enteric coated tablet atorvastatin (LIPITOR) 80 mg tablet calcitRIOL (ROCALTROL) 0.25 mcg capsule calcium acetate,phosphat bind, (PHOSLO) 667 mg capsule cetirizine (ZyrTEC) 10 mg tablet cholecalciferol (VITAMIN D-3) 2000 unit tablet cloNIDine (CATAPRES) 0.1 mg tablet clopidogrel (PLAVIX) 75 mg tablet colchicine (Colcrys) 0.6 mg tablet doxycycline monohydrate (ADOXA) 50 mg tablet EZETIMIBE ORAL furosemide (LASIX) 80 mg tablet hydrALAZINE (APRESOLINE) 100 mg tablet insulin aspart U-100 (NovoLOG) 100 unit/mL cartridge isosorbide mononitrate ER (IMDUR) 30 mg 24 hr tablet meloxicam (MOBIC) 7.5 mg tablet metoprolol (LOPRESSOR) 100 mg tablet omeprazole (PriLOSEC) 20 mg capsule pen needle, diabetic (BD Ultra-Fine Short Pen Needle) 31 gauge x 5/16 needle ranolazine ER (RANEXA) 500 mg 12 hr tablet UNABLE TO FIND Current Medications: aspirin, 81 mg, oral, Daily atorvastatin, 80 mg, oral, Daily calcitRIOL, 0.25 mcg, oral, Daily [Held by Provider] calcium acetate(phosphat bind), 667 mg, oral, QID clopidogreL, 75 mg, oral, Daily ezetimibe, 10 mg, oral, Daily gentamicin, , topical, Daily heparin, 5,000 Units, subcutaneous, Q8H ASHLEY [START ON 06/24/2022] insulin glargine, 28 Units, subcutaneous, QAM insulin lispro, 0-10 Units, subcutaneous, TID with meals insulin lispro, 0-5 Units, subcutaneous, Nightly insulin lispro, 0-5 Units, subcutaneous, Daily insulin lispro, 6 Units, subcutaneous, TID with meals insulin NPH, 30 Units, subcutaneous, Nightly metoprolol tartrate, 50 mg, oral, BID pantoprazole, 40 mg, intravenous, BID polyvinyl alcohol-povidone, 1 drop, each eye, QID peritoneal fluid with or without additives for CCPD, peritoneal fluid with or without additives for CCPD, peritoneal fluid with or without additives for CCPD, peritoneal fluid with or without additives for CCPD, Objective Vital Signs: 24hr Min/Max: Temp Min: 36.7 ??C (98.1 ??F) Max: 37 ??C (98.6 ??F) Pulse Min: 72 Max: 105 BP Min: 86/64 Max: 126/50 Resp Min: 18 Max: 20 SpO2 Min: 96 % Max: 100 % Most Recent: Vitals: 06/23/22 1415 BP: 109/66 Pulse: 98 Resp: Temp: SpO2: Intake/Output: Intake/Output Summary (Last 24 hours) at 06/23/2022 1759 Last data filed at 06/23/2022 1747 Gross per 24 hour Intake 31209 ml Output 30183 ml Net -2325 ml Physical Exam: General: well appearing in NAD, pleasant, conversational without dyspnea HEENT: NCAT, MMM, anicteric Neck: supple, no JVD appreciated Lungs: non-labored breathing, CTAB Heart: RRR, normal S1/S2, no M/R/G's Abdomen: +BS, soft, NT, ND Groin: left femoral access site c/d/I, no echhmyoses, no hematoma palpated Extremities: WWP, no LE edema, 2+ DP/PT/Radial pulses bilaterally Neurologic: A&Ox3, no focal deficits appreciated Psych: Normal mood and affect Lab/Radiology/Diagnostic Review: Recent Labs Lab Units 06/23/22 1434 06/23/22 1401 06/23/22 0421 06/22/22 1521 06/21/22 2155 HEMOGLOBIN g/dL 8.2* 4.6* 8.1* 7.8* 7.5* HEMATOCRIT % 25.2* 14.2* 25.8* 24.1* 23.6* WBC K/cumm 5.4 5.9 4.4 4.9 5.9 PLATELETS K/cumm 215 253 206 183 174 Recent Labs Lab Units 06/23/22 1435 06/23/22 1401 06/23/22 0421 06/22/22 1521 06/21/22 2155 06/21/22 0838 SODIUM mmol/L 137 136 -- 138 136 139 POTASSIUM PLASMA mmol/L 3.6 3.4 -- 3.7 4.0 4.0 CHLORIDE mmol/L 96* 96* -- 99 98 101 CO2 mmol/L 25 25 -- 27 24 27 ANIONGAP mmol/L 16* 15 -- 12 14 11 BUN SERUM mg/dL 45* 45* -- 42* 41* 36* CREATININE mg/dL 8.33* 8.21* -- 7.25* 6.03* 5.26* CALCIUM mg/dL 8.3* 8.3* -- 8.6 8.4* 8.4* MAGNESIUM mg/dL -- 2.8* 2.9* 2.9* 2.8* 2.8* Recent Labs Lab Units 06/22/22 1521 ALBUMIN g/dL 2.9* ALK PHOS Units/L 112 AST Units/L 41 ALT Units/L 31 BILIRUBIN TOTAL mg/dL 0.4 Recent Labs Lab Units 06/19/222053 APTT sec 37 Recent Labs Lab Units 06/19/22205306/19/22 0909 06/18/22 1014 PH ART 7.45 7.41 7.36 PCO2 ART mmHg 32* 33* 37 PO2 ART mmHg 75* 87 74* BASE EXC ART mmol/L -1 -4 -4 Cultures: Lab Results Component Value Date MICROBIOLOGY Final Report: No growth 06/17/2022 MICROBIOLOGY Final Report: No growth 06/17/2022 MICROBIOLOGY Final Report: Negative 06/15/2022 MICROBIOLOGY Final Report: No growth 06/15/2022 MICROBIOLOGY Final Report: No growth 06/15/2022 Assessment/Plan Mr Adelia Garvin Jr. is a 51 year-old gentleman with history of HTN, HLD, CAD, ICM/HFrecEF (LVEF65% on TTE 06/12/22), paroxysmal AF, T1DM and ESRD on PD who was transferred to [facility] for an impella-supported complex PCI on 06/07/22 with MARIELLA to ostial LCx and OM1 bifurcation. General Cardiology was consulted because of chest pain today after transfer from CCU overnight. Chest pain resolved without intervention/nitro. Rated 4/10 with some mild associated SOB but no other symptoms. No significant EKG changes. Remains in AF and tachycardic to 100's. - please increase Metoprolol tartrate 50mg BID to 62.5mg BID, will continue to uptitrate as tolerated targeting HR's 60's-70's - continue DAPT with ASA 81mg daily and Plavix 75mg daily - continue Atorvastatin 80mg qhs - continue Zetia 10mg daily - will consider starting anti-anginal therapies, Imdur and/or Ranolazine We appreciate the ability to be involved in this patient's care. Please do not hesitate to contact us if questions arise. If after 5PM or on weekends, please page the yardage caller manager field investigations with any questions or concerns. Will Villavicencio MD Hat Blocking Operator 5:59 PM 06/23/22 Cosigned by Musa Fernando MD at 06/23/2022 7:53 PM CDT Associated attestation - Musa Fernando MD - 06/23/2022 7:53 PM CDT 06/23/2022 I have personally seen and examined this pt with resident/Fellow/CHIEF AIRLINE RADIO OPERATOR . I have reviewed History/Physical exam and plan for management. I agree with it . Musa Fernando M.D., F.A.CSharathC. education program associate [employer] [facility] [employer] [facility]. [place] This note contains information and findings from prior encounters which remain the same for today'sencounter. I have reviewed and made updates where applicable. This note was written using a voice recognition system hardware device. Please note there may be variance in spelling, grammar, and syntax because of the voice recognition system hardware. Therefor, not every sentence has been reviewed in its entirety. If there are any concerns about verbage above please contact me at [phone]. . * Mckenzie Phelan, GAVIN - 06/15/2022 4:40 PM CDT Nutrition Assessment Reason for Assessment: Length of Stay Encounter Date: 06/15/22 4:49 PM Patient is a 51 y.o. male with chief complaint of generalized weakness, n/v, diarrhea, and chest pain. LOS is 11 days. HPI: 51 y.o. male with a history of CHF (EF 50% 2017), Afib (not on AC), HTN, CAD s/p stent 04/06 and 3 stent 12/07, T1DM (insulin pump at home), ESRD on PD, HLD, GERD, hyperparathyroidism, DDD, OA, gout, BEN on CPAP initially presented to [facility] for generalized weakness, n/v, diarrhea, and chest pain now being transferred for LHC/PCI 06/06. Objective Past Medical History: Diagnosis Date CAD (coronary artery disease) Chest pain Diabetes mellitus (HCC) Diabetes mellitus type I (HCC) Dialysis patient ([facility]) (HCC) ESRD on dialysis ([facility]) (HCC) GERD (gastroesophageal reflux disease) Hyperlipidemia Hypertension Sleep apnea SOB (shortness of breath) Past Surgical History: Procedure Laterality Date APPENDECTOMY Appendectomy APPENDECTOMY CORONARY ANGIOPLASTY WITH STENT PLACEMENT FEMUR SURGERY KNEE SURGERY knee surgery OPEN REDUCTION INTERNAL FIXATION ORIF OTHER SURGICAL HISTORY eye surg-vitrectomy Social History Tobacco Use Smoking status: Never Smokeless tobacco: Former Substance and Sexual Activity Drug use: No Sexual activity: Defer Alcohol Use: Not At Risk Frequency of Alcohol Consumption: Monthly or less Average Number of Drinks: 3 or 4 Frequency of Binge Drinking: Never Family History Problem Relation Age of Onset Heart attack Father Anthropometrics: Wt Readings from Last 3 Encounters: 06/15/22 123 kg (271 lb 2.7 oz) 01/21/21 132.9 kg (293 lb) 04/19/18 118.8 kg (262 lb) Anthropometrics Weight: 123 kg (271 lb 2.7 oz) Admission Weight : 142 kg Weight Change: -5.80 kg (-12.78 lbs) IBW/kg (Calculated) : 75.3 kg Height: 177.8 cm (5' 10 ) Weight in (lb) to have BMI = 25: 173.9 BMI (Calculated): 38.9 Nutrition Needs Calculations: Calculated Energy Needs Using Equations Weight: 123 kg (271 lb 2.7 oz) Height: 177.8 cm (5' 10 ) Minute Ventilation (L/min): 12.7 L/min Estimated Protein Needs Type of Weight Used for Estimated Protein : [place] Protein Needs Based on g/k.7 Total Protein Estimated Needs (gm): 128.01 Kcal/kg Type of Weight Used for Estimated Kcals: Admission Kcal/k Total Kcal/kg Estimated Needs : 1703.71 Vital Signs: BP: 146/57 Temp: 38.1 ??C (100.6 ??F) Pulse: 62 Resp: 20 SpO2: (!) 89 % Medications: Scheduled Meds: aspirin, 81 mg, feeding tube, Daily atorvastatin, 80 mg, feeding tube, Daily calcitRIOL, 0.25 mcg, feeding tube, Daily [Held by Provider] calcium acetate(phosphat bind), 667 mg, oral, QID chlorhexidine, 15 mL, mouth/throat, BID [Held by Provider] cloNIDine, 0.1 mg, oral, BID clopidogreL, 75 mg, feeding tube, Daily docusate, 100 mg, feeding tube, Daily ezetimibe, 10 mg, feeding tube, Daily gentamicin, , topical, Daily insulin glargine, 33 Units, subcutaneous, QAM insulin lispro, 0-10 Units, subcutaneous, Q4H ASHLEY insulin lispro, 7 Units, subcutaneous, Q4H meropenem, 1,000 mg, intravenous, Q12H ASHLEY [Held by Provider] nystatin, 500,000 Units, swish & spit, QID pantoprazole, 40 mg, intravenous, BID polyethylene glycol, 17 g, feeding tube, BID senna, 8.8 mg, oral, Nightly vancomycin, 1,750 mg, intravenous, Q24H Continuous Infusions: dexmedeTOMIDine, 0-1.5 mcg/kg/hr, Last Rate: 1.5 mcg/kg/hr (06/15/22 1443) fentaNYL, 0-400 mcg/hr, Last Rate: 200 mcg/hr (06/15/22 1548) heparin, 0-33 Units/kg/hr, Last Rate: 7.5 Units/kg/hr (06/15/22 1400) norepinephrine, 0-2 mcg/kg/min (Dosing Weight), Last Rate: 0.05 mcg/kg/min (06/15/22 1150) NxStage 3-potassium/3-calcium, 1,400 mL/hr, Last Rate: 1,400 mL/hr (06/14/22 2133) NxStage 3-potassium/3-calcium, 1,400 mL/hr, Last Rate: 1,400 mL/hr (06/15/22 0613) propofol, 0-50 mcg/kg/min, Last Rate: Stopped (06/15/22 1018) sodium chloride 0.9%, 10 mL/hr, Last Rate: 10 mL/hr (06/12/22 0834) sodium chloride 0.9%, 1,000 mL sodium chloride 0.9%, 3-12 mL/hr sodium chloride 0.9%, 3-12 mL/hr, Last Rate: 3 mL/hr (06/15/22 0900) PRN Meds: acetaminophen albuterol HFA bisacodyL bisacodyl EC dextrose OR dextrose dextrose 5% water dextrose 5% water fentaNYL fentaNYL fluticasone propionate glucagon Dialysis Access Care AND heparin heparin OR heparin lidocaine ondansetron ODT OR ondansetron phenoL polyethylene glycol ramelteon sodium chloride 0.9% Lab Review: Sodium Date Value Ref Range Status 06/15/2022 134 (L) 135 - 145 mmol/L Final Potassium, pl Date Value Ref Range Status 06/15/2022 5.0 (H) 3.3 - 4.9 mmol/L Final BUN Date Value Ref Range Status 06/15/2022 21 8 - 25 mg/dL Final Creatinine Date Value Ref Range Status 06/15/2022 2.73 (H) 0.80 - 1.30 mg/dL Final Phosphorus, pl Date Value Ref Range Status 06/14/2022 3.1 2.3 - 4.5 mg/dL Final Albumin Date Value Ref Range Status 06/15/2022 2.7 (L) 3.5 - 5.0 g/dL Final Magnesium Date Value Ref Range Status 06/15/2022 2.8 (H) 1.4 - 2.5 mg/dL Final Calcium Date Value Ref Range Status 06/15/2022 8.8 8.5 - 10.3 mg/dL Final ALT Date Value Ref Range Status 06/15/2022 44 7 - 55 Units/L Final AST Date Value Ref Range Status 06/15/2022 61 (H) 10 - 50 Units/L Final Alk phos Date Value Ref Range Status 06/15/2022 256 (H) 40 - 130 Units/L Final Lipase Date Value Ref Range Status 06/14/2022 25 10 - 99 Units/L Final Lab Results Component Value Date HGBA1C 7.8 (H) 06/04/2022 HDL 34 (L) 06/04/2022 LDLCALC 82 06/04/2022 CHOL 149 06/04/2022 TRIG 482 (H) 06/14/2022 Nursing Assessment: Intake/Output Summary (Last 24 hours) at 06/15/2022 1649 Last data filed at 06/15/2022 1500 Gross per 24 hour Intake 2062.42 ml Output 1222 ml Net 840.42 ml Gastrointestinal Gastrointestinal (WDL): Exceptions to WDL Abdomen Inspection: Distended, Rounded Bowel Sounds (All Quadrants): Active, Present Palpation: Soft, No guarding Last BM Date: 06/13/22 Passing Flatus: Yes GI Symptoms: None Gastrointestinal Additional Assessments: No Last BM Date: 06/13/22 Rex Scale Score: 14 Skin Integrity: Blanchable redness, Bruising Edema: Moderate pitting, indentation subsides rapidly Dietary Orders (From admission, onward) Start Ordered 06/15/22 1154 Diet, Tube Feeding With Tray Impact Peptide 1.5 Inkos; 30; 30; Water; Every 4 hours; Prosource TF 45 ml QID Diet effective now Question Answer Comment Tube Feeding Formula: Impact Peptide 1.5 Nikos Tube Feeding Continuous (mL/hr): 30 Tube Feeding Flush (mL): 30 Flush Type: Water Flush Frequency: Every 4 hours Nutrition Additives: Prosource TF 45 ml QID 06/15/22 1154 Impression: TF changed to Impact 1.5 to increase protein since pt is on CVVHD. TF held later today d/t hyperglycemia. Endocrine consulted 06/15 Na 134 K 5.0 creatinine 2.73 Mg 2.8 06/13 Phos 3.1 NUTRITION DIAGNOSIS Nutrition Diagnosis 1: Inadequate energy intake Related to: NPO status Evidenced by: Need for full tube feeding INTERVENTION Propofol @ 7.59 ml/hr = 182 calories/day from lipids. Weaning propofol Recommend Impact 1.5 to begin @ 10 ml/hr. Increase 10 ml q 4 hr until goal of 50 ml/hr is reached =1800 calories (15 nikos/kg) 168 g CHO (only 8 g CHO higher than Glucerna at the same rate) 113 g protein 912 ml free water Prosource 45 ml daily adds 11 g protein 44 calories Flush with 30 ml water q 4 hr for tube patency/adjust per hydration status Monitor electrolytes, replete PRN Follow aspiration precautions GOALS / MONITORING: Goals: Tolerance of enteral feeding at goal rate Interventions: Enteral nutrition administration Monitoring and Evaluation: TF tolerance Mckenzie Phelan RDN LD [phone] * Sandrine Myers MD - 06/15/2022 10:42 AM CDT Pulmonary Daily Progress Subjective Chief complaint of respiratory failure, right chest tube. Interval History: Reported desaturation yesterday with improvement with suction, back to prior FiO2of 40% and able to wean PEEP to 8. Otherwise no acute events reported. Scheduled Meds:acetaminophen, 325 mg, oral, Once aspirin, 81 mg, feeding tube, Daily atorvastatin, 80 mg, feeding tube, Daily calcitRIOL, 0.25 mcg, feeding tube, Daily [Held by Provider] calcium acetate(phosphat bind), 667 mg, oral, QID chlorhexidine, 15 mL, mouth/throat, BID [Held by Provider] cloNIDine, 0.1 mg, oral, BID clopidogreL, 75 mg, feeding tube, Daily docusate, 100 mg, feeding tube, Daily ezetimibe, 10 mg, feeding tube, Daily gentamicin, , topical, Daily insulin glargine, 33 Units, subcutaneous, QAM insulin lispro, 0-10 Units, subcutaneous, Q4H ASHLEY insulin lispro, 5 Units, subcutaneous, Q4H meropenem, 1,000 mg, intravenous, Q12H ASHLEY [Held by Provider] nystatin, 500,000 Units, swish & spit, QID pantoprazole, 40 mg, intravenous, BID phenylephrine, , , polyethylene glycol, 17 g, feeding tube, BID senna, 8.8 mg, oral, Nightly vancomycin, 1,750 mg, intravenous, Q24H Continuous Infusions:dexmedeTOMIDine, 0-1.5 mcg/kg/hr, Last Rate: 0.2 mcg/kg/hr (06/15/22 1017) fentaNYL, 0-400 mcg/hr, Last Rate: 175 mcg/hr (06/15/22 1000) heparin, 0-33 Units/kg/hr, Last Rate: 7.5 Units/kg/hr (06/15/22 1000) norepinephrine, 0-2 mcg/kg/min (Dosing Weight), Last Rate: Stopped (06/11/22 0400) NxStage 3-potassium/3-calcium, 1,400 mL/hr, Last Rate: 1,400 mL/hr (06/14/222132) NxStage 3-potassium/3-calcium, 1,400 mL/hr, Last Rate: 1,400 mL/hr (06/15/22 0613) propofol, 0-50 mcg/kg/min, Last Rate: Stopped (06/15/22 1018) sodium chloride 0.9%, 10 mL/hr, Last Rate: 10 mL/hr (06/12/22 0834) sodium chloride 0.9%, 1,000 mL sodium chloride 0.9%, 3-12 mL/hr sodium chloride 0.9%, 3-12 mL/hr, Last Rate: 3 mL/hr (06/15/22 0900) PRN Meds:. acetaminophen albuterol HFA bisacodyL bisacodyl EC dextrose OR dextrose dextrose 5% water dextrose 5% water fentaNYL fentaNYL fluticasone propionate glucagon Dialysis Access Care AND heparin heparin OR heparin lidocaine ondansetron ODT OR ondansetron phenoL polyethylene glycol ramelteon sodium chloride 0.9% I/O last 2 completed shifts: In: 2184.4 [I.V.:1019.4; NG/GT:1165] Out: 3111 [Urine:8; Other:2943; Stool:160] Objective Vitals: Vitals: 06/15/22 1000 BP: Pulse: 92 Resp: 13 Temp: 38 ??C (100.4 ??F) SpO2: 95% Physical Exam: Constitutional: Intubated, sedated, RASS -1 Head: ETT in place Cardiac: Normal rate, regular rhythm. No murmurs Resp: Clear to auscultation bilaterally. No wheezes, rhonchi, or rales. Vent AC/VC 500/20/40%/8, plateau pressure ~20. Abdomen: Soft. Obese, non distended. Extremities: +Peripheral edema though improved, no cyanosis Data: I have reviewed labs from last 24 hours. Pertinent findings include: stable/improving leukocytosis 13.2, anemia 7.7, ABG this AM 7.36/41/64/34 Recent Results (from the past 24 hour(s)) POCT glucose Collection Time: 06/14/22 11:21 AM Result Value Ref Range Glucose, POC 202 (H) 70 - 199 mg/dL POCT glucose Collection Time: 06/14/22 4:16 PM Result Value Ref Range Glucose, POC 229 (H) 70 - 199 mg/dL Glucose comment 1 Glu2: RN/ Notified Blood gas, arterial Collection Time: 06/14/22 4:19 PM Result Value Ref Range pH, Art 7.38 7.35 - 7.45 PCO2, Arterial 41 35 - 45 mmHg PO2, Arterial 76 (L) 83 - 108 mmHg HCO3 Art (Calculated) 25 20 - 30 mmol/L BE, art -1 mmol/L O2 Sat Art (Measured) 94 90 - 95 % POCT glucose Collection Time: 06/14/22 7:40 PM Result Value Ref Range Glucose, POC 190 70 - 199 mg/dL CBC with auto differential Collection Time: 06/14/22 7:41 PM Result Value Ref Range WBC 15.0 (H) 3.8 - 9.9 K/cumm Hgb 8.3 (L) 13.0 - 17.5 g/dL Hct 24.9 (L) 38.9 - 50.3 % Plt 218 150 - 400 K/cumm MPV 10.4 9.1 - 12.3 fL RBC 2.62 (L) 4.30 - 5.80 M/cumm MCV 95.0 81.3 - 96.4 fL MCH 31.7 27.1 - 33.3 pg MCHC 33.3 32.3 - 35.7 g/dL RDW CV 14.1 11.1 - 14.9 % RDW SD 47.3 35.7 - 48.1 fL NRBC abs 0.08 (H) 0.00 - 0.01 K/cumm Lipase Collection Time: 06/14/22 7:41 PM Result Value Ref Range Lipase 25 10 - 99 Units/L Beta-hydroxybutyrate Collection Time: 06/14/22 7:41 PM Result Value Ref Range Beta-Hydroxybutyrate 0.7 (H) 0.0 - 0.5 mmol/L Phosphorus Collection Time: 06/14/22 7:41 PM Result Value Ref Range Phosphorus, pl 3.1 2.3 - 4.5 mg/dL Triglycerides Collection Time: 06/14/22 7:41 PM Result Value Ref Range Triglycerides 482 (H) <=149 mg/dL Comprehensive metabolic panel Collection Time: 06/14/22 7:41 PM Result Value Ref Range Sodium 138 135 - 145 mmol/L Potassium, pl 4.7 3.3 - 4.9 mmol/L Chloride 102 97 - 110 mmol/L CO2 27 22 - 32 mmol/L Anion gap 9 2 - 15 mmol/L BUN 17 8 - 25 mg/dL Creatinine 2.22 (H) 0.80 - 1.30 mg/dL Glucose 182 70 - 199 mg/dL Calcium 9.1 8.5 - 10.3 mg/dL Bilirubin, total 0.6 0.1 - 1.2 mg/dL Protein, pl 6.5 6.5 - 8.5 g/dL Albumin 3.1 (L) 3.5 - 5.0 g/dL Alk phos 264 (H) 40 - 130 Units/L ALT 45 7 - 55 Units/L AST 73 (H) 10 - 50 Units/L Magnesium Collection Time: 06/14/22 7:41 PM Result Value Ref Range Magnesium 3.0 (H) 1.4 - 2.5 mg/dL Differential, auto Collection Time: 06/14/22 7:41 PM Result Value Ref Range Neutrophil abs 9.9 (H) 1.7 - 6.5 K/cumm Imm gran abs 1.5 (H) 0.0 - 0.1 K/cumm Lymphocyte abs 1.7 0.8 - 3.3 K/cumm Monocyte abs 1.6 (H) 0.2 - 0.8 K/cumm Eosinophil abs 0.3 0.0 - 0.5 K/cumm Basophil abs 0.0 0.0 - 0.1 K/cumm Neutrophil pct 66.0 % Imm gran pct 9.6 % Lymphocyte pct 11.2 % Monocyte pct 10.8 % Eosinophil pct 2.1 % Basophil pct 0.3 % eGFR Collection Time: 06/14/22 7:41 PM Result Value Ref Range eGFR 35 (L) 90 - 130 mL/min/1.73 m2 POCT glucose Collection Time: 06/14/22 11:52 PM Result Value Ref Range Glucose, POC 176 70 - 199 mg/dL Blood gas, arterial Collection Time: 06/14/22 11:53 PM Result Value Ref Range pH, Art 7.36 7.35 - 7.45 PCO2, Arterial 43 35 - 45 mmHg PO2, Arterial 77 (L) 83 - 108 mmHg HCO3 Art (Calculated) 25 20 - 30 mmol/L BE, art -1 mmol/L O2 Sat Art (Measured) 94 90 - 95 % Pneumonia PCR with aerobic culture and Gram stain Tracheal aspirate Collection Time: 06/15/22 1:53 AM Specimen: Tracheal aspirate Result Value Ref Range Direct Specimen Exam Molecular Analysis: Rapid molecular analysis has NOT detected bacterial targets (for a list of targets evaluated, referto the interpretive data for this specimen). Correlation of molecular analysis with culture resultsis recommended. Direct Specimen Exam Stain: Few polymorphonuclear leukocytes seen. Few squamous epithelial cells seen. Few mixed bacterial stone seen on Gram stain. Pneumonia PCR Tracheal aspirate Collection Time: 06/15/22 1:53 AM Specimen: Tracheal aspirate Result Value Ref Range C. pneumoniae DNA Not Detected Not Detected Legionella pneumophila DNA Not Detected Not Detected M. pneumoniae DNA Not Detected Not Detected Adenovirus DNA Not Detected Not Detected Coronavirus (229E, OC43, HKU1, NL63) RNA Not Detected Not Detected Metapneumovirus RNA Not Detected Not Detected Rhinovirus/Enterovirus RNA Not Detected Not Detected Influenza A RNA Not Detected Not Detected Influenza B RNA Not Detected Not Detected Parainfluenza virus (1-4) RNA Not Detected Not Detected RSV RNA Not Detected Not Detected Blood gas, arterial Collection Time: 06/15/22 3:37 AM Result Value Ref Range pH, Art 7.36 7.35 - 7.45 PCO2, Arterial 41 35 - 45 mmHg PO2, Arterial 64 (L) 83 - 108 mmHg HCO3 Art (Calculated) 24 20 - 30 mmol/L BE, art -2 mmol/L O2 Sat Art (Measured) 92 90 - 95 % Lactate, whole blood Collection Time: 06/15/22 3:37 AM Result Value Ref Range Lactate, bld 0.8 0.7 - 2.0 mmol/L POCT glucose Collection Time: 06/15/22 3:37 AM Result Value Ref Range Glucose, POC 264 (H) 70 - 199 mg/dL CBC with auto differential Collection Time: 06/15/22 8:06 AM Result Value Ref Range WBC 13.2 (H) 3.8 - 9.9 K/cumm Hgb 7.7 (L) 13.0 - 17.5 g/dL Hct 24.1 (L) 38.9 - 50.3 % Plt 228 150 - 400 K/cumm MPV 10.6 9.1 - 12.3 fL RBC 2.45 (L) 4.30 - 5.80 M/cumm MCV 98.4 (H) 81.3 - 96.4 fL MCH 31.4 27.1 - 33.3 pg MCHC 32.0 (L) 32.3 - 35.7 g/dL RDW CV 14.5 11.1 - 14.9 % RDW SD 49.6 (H) 35.7 - 48.1 fL NRBC abs 0.11 (H) 0.00 - 0.01 K/cumm Comprehensive metabolic panel Collection Time: 06/15/22 8:06 AM Result Value Ref Range Sodium 134 (L) 135 - 145 mmol/L Potassium, pl 5.0 (H) 3.3 - 4.9 mmol/L Chloride 99 97 - 110 mmol/L CO2 26 22 - 32 mmol/L Anion gap 9 2 - 15 mmol/L BUN 21 8 - 25 mg/dL Creatinine 2.73 (H) 0.80 - 1.30 mg/dL Glucose 273 (H) 70 - 199 mg/dL Calcium 8.8 8.5 - 10.3 mg/dL Bilirubin, total 0.5 0.1 - 1.2 mg/dL Protein, pl 6.2 (L) 6.5 - 8.5 g/dL Albumin 2.7 (L) 3.5 - 5.0 g/dL Alk phos 256 (H) 40 - 130 Units/L ALT 44 7 - 55 Units/L AST 61 (H) 10 - 50 Units/L Magnesium Collection Time: 06/15/22 8:06 AM Result Value Ref Range Magnesium 2.8 (H) 1.4 - 2.5 mg/dL Differential, auto Collection Time: 06/15/22 8:06 AM Result Value Ref Range Neutrophil abs 9.0 (H) 1.7 - 6.5 K/cumm Imm gran abs 1.0 (H) 0.0 - 0.1 K/cumm Lymphocyte abs 1.6 0.8 - 3.3 K/cumm Monocyte abs 1.5 (H) 0.2 - 0.8 K/cumm Eosinophil abs 0.2 0.0 - 0.5 K/cumm Basophil abs 0.1 0.0 - 0.1 K/cumm Neutrophil pct 67.6 % Imm gran pct 7.4 % Lymphocyte pct 11.8 % Monocyte pct 11.2 % Eosinophil pct 1.5 % Basophil pct 0.5 % eGFR Collection Time: 06/15/22 8:06 AM Result Value Ref Range eGFR 27 (L) 90 - 130 mL/min/1.73 m2 aPTT Collection Time: 06/15/22 8:11 AM Result Value Ref Range aPTT 60 (H) 27 - 37 sec Oxyhemoglobin, central venous Collection Time: 06/15/22 8:11 AM Result Value Ref Range Oxyhemoglobin, CV 66.6 % POCT glucose Collection Time: 06/15/22 8:21 AM Result Value Ref Range Glucose, POC 260 (H) 70 - 199 mg/dL I have reviewed radiology images from last 24 hours: Pertinent findings include: CXR this AM reviewed, unchanged atelectasis with low lung volumes and no new consolidation per my read. Assessment/Plan Acute hypoxemic respiratory failure (HCC) Assessment & Plan Mr. Garvin is a 51 y/o M with medical history most significant for CAD, DM1, ESRD on PD, initially presenting for complex PCI, found to have cholecystitis, now in CCU with cardiogenic shock. Pulmonary is consulted for hypoxemic respiratory failure. Problem List: - Acute hypoxemic respiratory failure, secondary to cardiogenic pulmonary edema, atelectasis - Cardiogenic shock, NSTEMI s/p complex PCI, impella - BEN on home CPAP - Acute cholecystitis, meropenem/vancomycin Acute hypoxemic respiratory failure continues to be most consistent with a combination of cardiogenic pulmonary edema and lower lobe atelectasis with continued improvement following diuresis and suctioning. Given continued secretions with likely intermittent mucous plugging, recommend addition of IPV for airway clearance. Recommendations: --Recommend initiation of IPV or VEST therapy to assist with mucous clearance --Continue diuresis/volume removal as tolerated --Continue lung protective ventilation keeping plat pressures < 30, PEEP 8 --Continue antibiotics per primary team Pulmonary will continue to follow. Please call manager field investigations pulmonary consult fellow with additional questions or concerns. Sandrine Myers MD Pulmonary and Critical Care, PGY-4 Cosigned by Girish Grant MD at 06/15/2022 11:40 AM CDT Associated attestation - Girish Grant MD - 06/15/2022 11:40 AM CDT I have seen and examined the patient on 06/15/22. I agree with the findings and plan of care as documented in the resident's/fellow's note. and as discussed with the resident/fellow. Plans as noted below. Would lighten sedation and consider PSV trials when fevers have resolved and hemodynamically stable. * Mckenzie Phelan, GAVIN - 06/14/2022 2:36 PM CDT Nutrition Assessment Reason for Assessment: Length of Stay Encounter Date: 06/14/22 3:11 PM Patient is a 51 y.o. male with chief complaint of generalized weakness, n/v, diarrhea, and chest pain. LOS is 10 days. HPI: 51 y.o. male with a history of CHF (EF 50% 2016), Afib (not on AC), HTN, CAD s/p stent 04/06 and 3 stent 12/07, T1DM (insulin pump at home), ESRD on PD, HLD, GERD, hyperparathyroidism, DDD, OA, gout, BEN on CPAP initially presented to [facility] for generalized weakness, n/v, diarrhea, and chest pain now being transferred for LHC/PCI 06/06. Objective Past Medical History: Diagnosis Date CAD (coronary artery disease) Chest pain Diabetes mellitus (HCC) Diabetes mellitus type I (HCC) Dialysis patient ([facility]) (HCC) ESRD on dialysis ([facility]) (HCC) GERD (gastroesophageal reflux disease) Hyperlipidemia Hypertension Sleep apnea SOB (shortness of breath) Past Surgical History: Procedure Laterality Date APPENDECTOMY Appendectomy APPENDECTOMY CORONARY ANGIOPLASTY WITH STENT PLACEMENT FEMUR SURGERY KNEE SURGERY knee surgery OPEN REDUCTION INTERNAL FIXATION ORIF OTHER SURGICAL HISTORY eye surg-vitrectomy Social History Tobacco Use Smoking status: Never Smokeless tobacco: Former Substance and Sexual Activity Drug use: No Sexual activity: Defer Alcohol Use: Not At Risk Frequency of Alcohol Consumption: Monthly or less Average Number of Drinks: 3 or 4 Frequency of Binge Drinking: Never Family History Problem Relation Age of Onset Heart attack Father Anthropometrics: Wt Readings from Last 3 Encounters: 06/14/22 128.8 kg (283 lb 15.2 oz) 01/21/21 132.9 kg (293 lb) 04/19/18 118.8 kg (262 lb) Anthropometrics Weight: 128.8 kg (283 lb 15.2 oz) Admission Weight : 142 kg Weight Change: -3.10 kg (-6.83 lbs) IBW/kg (Calculated) : 75.3 kg Height: 177.8 cm (5' 10 ) Weight in (lb) to have BMI = 25: 173.9 BMI (Calculated): 40.7 Nutrition Needs Calculations: Calculated Energy Needs Using Equations Weight: 128.8 kg (283 lb 15.2 oz) Height: 177.8 cm (5' 10 ) Minute Ventilation (L/min): 11.4 L/min Estimated Protein Needs Type of Weight Used for Estimated Protein : [place] Protein Needs Based on g/k.5 Total Protein Estimated Needs (gm): 112.95 Vital Signs: BP: 146/57 Temp: 37.5 ??C (99.5 ??F) Pulse: 78 Resp: 20 SpO2: 96 % Medications: Scheduled Meds: [Held by Provider] amLODIPine, 10 mg, oral, Daily aspirin, 81 mg, feeding tube, Daily atorvastatin, 80 mg, feeding tube, Daily calcitRIOL, 0.25 mcg, feeding tube, Daily [Held by Provider] calcium acetate(phosphat bind), 667 mg, oral, QID chlorhexidine, 15 mL, mouth/throat, BID [Held by Provider] cloNIDine, 0.1 mg, oral, BID clopidogreL, 75 mg, feeding tube, Daily docusate, 100 mg, feeding tube, Daily [Held by Provider] ergocalciferol, 50,000 Units, oral, Weekly ezetimibe, 10 mg, feeding tube, Daily gentamicin, , topical, Daily [Held by Provider] hydrALAZINE, 100 mg, oral, Q8H insulin glargine, 33 Units, subcutaneous, QAM insulin lispro, 0-10 Units, subcutaneous, Q4H ASHLEY insulin lispro, 5 Units, subcutaneous, Q4H [Held by Provider] isosorbide mononitrate ER, 30 mg, oral, Daily meropenem, 1,000 mg, intravenous, Q12H ASHLEY [Held by Provider] metoprolol tartrate, 12.5 mg, oral, Q6H [Held by Provider] nystatin, 500,000 Units, swish & spit, QID pantoprazole, 40 mg, intravenous, BID perflutren protein-a, , , polyethylene glycol, 17 g, feeding tube, BID [Held by Provider] ranolazine ER, 500 mg, oral, BID senna, 8.8 mg, oral, Nightly [Held by Provider] terazosin, 2 mg, oral, Nightly vancomycin, 1,750 mg, intravenous, Q24H Continuous Infusions: dexmedeTOMIDine, 0-1.5 mcg/kg/hr, Last Rate: Stopped (06/10/22 2300) fentaNYL, 0-400 mcg/hr, Last Rate: 150 mcg/hr (06/14/22 1500) heparin, 0-33 Units/kg/hr, Last Rate: 7.5 Units/kg/hr (06/14/22 1500) midazolam, 0-12 mg/hr, Last Rate: Stopped (06/13/22 1327) nitroglycerin, 0-400 mcg/min, Last Rate: Stopped (06/05/22 2100) norepinephrine, 0-2 mcg/kg/min (Dosing Weight), Last Rate: Stopped (06/11/22 0400) NxStage 3-potassium/3-calcium, 1,400 mL/hr, Last Rate: 1,400 mL/hr (06/14/22 1025) NxStage 3-potassium/3-calcium, 1,400 mL/hr, Last Rate: 1,400 mL/hr (06/14/22 1419) propofol, 0-50 mcg/kg/min, Last Rate: 30 mcg/kg/min (06/14/22 1500) sodium chloride 0.9%, 10 mL/hr, Last Rate: 10 mL/hr (06/12/22 0834) sodium chloride 0.9%, 10 mL/hr, Last Rate: 10 mL/hr (06/09/22 0700) sodium chloride 0.9%, 10 mL/hr sodium chloride 0.9%, 10 mL/hr, Last Rate: 10 mL/hr (06/09/22 0700) sodium chloride 0.9%, 6 mL/hr, Last Rate: 6 mL/hr (06/10/22 1700) sodium chloride 0.9%, 1,000 mL sodium chloride 0.9%, 3-12 mL/hr, Last Rate: 3 mL/hr (06/14/22 1014) sodium chloride 0.9%, 3-12 mL/hr sodium chloride 0.9%, 3-12 mL/hr, Last Rate: 3 mL/hr (06/14/22 1200) PRN Meds: acetaminophen albuterol HFA bisacodyL bisacodyl EC dextrose OR dextrose dextrose 5% water dextrose 5% water fentaNYL fentaNYL fluticasone propionate glucagon Dialysis Access Care AND heparin heparin OR heparin lidocaine ondansetron ODT OR ondansetron phenoL polyethylene glycol ramelteon sodium chloride 0.9% Lab Review: Sodium Date Value Ref Range Status 06/14/2022 134 (L) 135 - 145 mmol/L Final Potassium, pl Date Value Ref Range Status 06/14/2022 4.7 3.3 - 4.9 mmol/L Final Comment: Hemolyzed; Potassium value may be falsely elevated by as much as 0.3-0.5 mmol/L. Suggest redraw andreanalysis. BUN Date Value Ref Range Status 06/14/2022 16 8 - 25 mg/dL Final Creatinine Date Value Ref Range Status 06/14/2022 2.19 (H) 0.80 - 1.30 mg/dL Final Phosphorus, pl Date Value Ref Range Status 06/13/2022 3.1 2.3 - 4.5 mg/dL Final Albumin Date Value Ref Range Status 06/14/2022 3.1 (L) 3.5 - 5.0 g/dL Final Magnesium Date Value Ref Range Status 06/14/2022 2.9 (H) 1.4 - 2.5 mg/dL Final Calcium Date Value Ref Range Status 06/14/2022 9.5 8.5 - 10.3 mg/dL Final ALT Date Value Ref Range Status 06/14/2022 48 7 - 55 Units/L Final AST Date Value Ref Range Status 06/14/2022 81 (H) 10 - 50 Units/L Final Comment: Hemolyzed; result may be falsely elevated Alk phos Date Value Ref Range Status 06/14/2022 276 (H) 40 - 130 Units/L Final Lipase Date Value Ref Range Status 06/13/2022 16 10 - 99 Units/L Final Lab Results Component Value Date HGBA1C 7.8 (H) 06/04/2022 HDL 34 (L) 06/04/2022 LDLCALC 82 06/04/2022 CHOL 149 06/04/2022 TRIG 324 (H) 06/13/2022 Nursing Assessment: Intake/Output Summary (Last 24 hours) at 06/14/2022 1511 Last data filed at 06/14/2022 1500 Gross per 24 hour Intake 2304.39 ml Output 4616 ml Net -2311.61 ml Gastrointestinal Gastrointestinal (WDL): Exceptions to WDL Abdomen Inspection: Rounded, Distended Bowel Sounds (All Quadrants): Hypoactive Palpation: No guarding Last BM Date: 06/13/22 Passing Flatus: Yes GI Symptoms: None Gastrointestinal Additional Assessments: No Last BM Date: 06/13/22 Rex Scale Score: 14 Skin Integrity: Redness Edema: Mild pitting, silght indention Dietary Orders (From admission, onward) Start Ordered 06/10/22 1404 Diet, Tube Feeding With Tray Glucerna 1.5 nikos; 45 (begin at 10 ml/hr, and increase 10ml/hr q 8 hrs until goal rate 45 ml/hr reached); 30; Water; Every 4 hours Diet effective now Question Answer Comment Tube Feeding Formula: Glucerna 1.5 nikos Tube Feeding Continuous (mL/hr): 45 begin at 10 ml/hr, and increase 10 ml/hr q 8 hrs until goal rate 45 ml/hr reached Tube Feeding Flush (mL): 30 Flush Type: Water Flush Frequency: Every 4 hours 06/10/22 1415 06/10/22 0001 NPO Diet Diet effective midnight 06/09/22 2139 06/08/22 2100 Bedtime snack At bedtime Comments: If bedtime BG is less than 100mg/dl, give patient a 15 gram carbohydrate snack. 06/08/22 0424 06/05/22 2100 Bedtime snack At bedtime Comments: If bedtime BG is less than 100mg/dl, give patient a 15 gram carbohydrate snack. 06/05/22 0245 Impression: Pt intubated, with NGT in place. Glucerna 1.5 @ 45 ml/hr. Per nurse, pt is tolerating TF, no diarrhea, no skin issues 06/14 Na 134 creatinine 2.19 elevated transaminases Mg 2.9 glucose 171-202 Propofol @ 25.1 ml/hr 06/13 last BM. BS hypoactive, abdomen distended NUTRITION DIAGNOSIS Nutrition Diagnosis 1: Inadequate energy intake Related to: NPO status Evidenced by: Need for full tube feeding INTERVENTION Propofol @ 25.1 ml/hr = 663 calories/day from lipids Glucerna 1.5 @ 45 ml/hr = 1620 kcal/day (11.9 kcal/kg), 89 g protein/day (1.2 g/kg IBW), 144 g CHO and 820 ml fluid/day Total = 2283 calories 89 g protein, overfeeding Recommend Impact 1.5 @ 30 ml/hr (while propofol @ current rate) = 1080 calories 68 g protein 548 mlfree water Add prosource QID = 44 g protein 176 calories Flush with 30 ml water q 4 hr for tube patency Monitor electrolytes, replete PRN Follow aspiration precautions GOALS / MONITORING: Goals: Tolerance of enteral feeding at goal rate Interventions: Enteral nutrition administration Monitoring and Evaluation: TF tolerance Mckenzie Phelan RDN LD Nut Sifter RD number [phone] * Ronny Vasquez - 06/10/2022 2:21 PM CDT Nutrition Assessment Reason for Assessment: Length of Stay Encounter Date: 06/10/22 2:21 PM Patient is a 51 y.o. male with chief complaint of generalized weakness, n/v, diarrhea, and chest pain. LOS is 6 days. HPI: 51 y.o. male with a history of CHF (EF 50% 2016), Afib (not on AC), HTN, CAD s/p stent 04/06 and 3 stent 12/07, T1DM (insulin pump at home), ESRD on PD, HLD, GERD, hyperparathyroidism, DDD, OA, gout, BEN on CPAP initially presented to [facility] for generalized weakness, n/v, diarrhea, and chest pain now being transferred for LHC/PCI 06/06. Objective Past Medical History: Diagnosis Date CAD (coronary artery disease) Chest pain Diabetes mellitus (HCC) Diabetes mellitus type I (HCC) Dialysis patient (CMS/HCC) (HCC) ESRD on dialysis (CMS/HCC) (HCC) GERD (gastroesophageal reflux disease) Hyperlipidemia Hypertension Sleep apnea SOB (shortness of breath) Past Surgical History: Procedure Laterality Date APPENDECTOMY Appendectomy APPENDECTOMY CORONARY ANGIOPLASTY WITH STENT PLACEMENT FEMUR SURGERY KNEE SURGERY knee surgery OPEN REDUCTION INTERNAL FIXATION ORIF OTHER SURGICAL HISTORY eye surg-vitrectomy Social History Tobacco Use Smoking status: Never Smokeless tobacco: Former Substance and Sexual Activity Drug use: No Sexual activity: Defer Alcohol Use: Not At Risk Frequency of Alcohol Consumption: Monthly or less Average Number of Drinks: 3 or 4 Frequency of Binge Drinking: Never Family History Problem Relation Age of Onset Heart attack Father Anthropometrics: Wt Readings from Last 3 Encounters: 06/10/22 135.8 kg (299 lb 6.2 oz) 01/21/21 132.9 kg (293 lb) 04/19/18 118.8 kg (262 lb) Anthropometrics Weight: 135.8 kg (299 lb 6.2 oz) Admission Weight : 142 kg Weight Change: -0.80 kg (-1.76 lbs) IBW/kg (Calculated) : 75.3 kg Height: 177.8 cm (5' 10 ) Weight in (lb) to have BMI = 25: 173.9 BMI (Calculated): 43 Nutrition Needs Calculations: Calculated Energy Needs Using Equations Weight: 135.8 kg (299 lb 6.2 oz) Height: 177.8 cm (5' 10 ) Minute Ventilation (L/min): 14.9 L/min Vital Signs: BP: 146/57 Temp: 36.6 ??C (97.9 ??F) Pulse: 77 Resp: 20 SpO2: 94 % Medications: Scheduled Meds: [Held by Provider] amLODIPine, 10 mg, oral, Daily aspirin, 81 mg, feeding tube, Daily atorvastatin, 80 mg, feeding tube, Daily calcitRIOL, 0.25 mcg, feeding tube, Daily [Held by Provider] calcium acetate(phosphat bind), 667 mg, oral, QID chlorhexidine, 15 mL, mouth/throat, BID [Held by Provider] cloNIDine, 0.1 mg, oral, BID clopidogreL, 75 mg, feeding tube, Daily docusate, 100 mg, feeding tube, Daily [Held by Provider] ergocalciferol, 50,000 Units, oral, Weekly ezetimibe, 10 mg, feeding tube, Daily [Held by Provider] hydrALAZINE, 100 mg, oral, Q8H insulin glargine, 33 Units, subcutaneous, QAM insulin lispro, 0-10 Units, subcutaneous, Q4H ASHLEY [Held by Provider] isosorbide mononitrate ER, 30 mg, oral, Daily meropenem, 1,000 mg, intravenous, Q12H ASHLEY [Held by Provider] metoprolol tartrate, 12.5 mg, oral, Q6H [Held by Provider] nystatin, 500,000 Units, swish & spit, QID pantoprazole, 40 mg, intravenous, BID polyethylene glycol, 17 g, feeding tube, BID [Held by Provider] ranolazine ER, 500 mg, oral, BID senna, 1 tablet, feeding tube, Daily [Held by Provider] terazosin, 2 mg, oral, Nightly Continuous Infusions: dextrose 10%, 10 mL/hr, Last Rate: 10 mL/hr (06/10/22 1000) fentaNYL, 0-400 mcg/hr, Last Rate: 200 mcg/hr (06/10/22 1314) impella purge solution infusion, 0-30 mL/hr, Last Rate: 15.4 mL/hr (06/10/22 1000) heparin, 0-33 Units/kg/hr, Last Rate: Stopped (06/10/22 1034) nitroglycerin, 0-400 mcg/min, Last Rate: Stopped (06/05/22 2100) norepinephrine, 0-2 mcg/kg/min (Dosing Weight), Last Rate: Stopped (06/08/22 0745) NxStage 4-potassium/2.5-calcium, 1,400 mL/hr, Last Rate: 1,400 mL/hr (06/10/22 0905) NxStage 4-potassium/2.5-calcium, 1,400 mL/hr, Last Rate: 1,400 mL/hr (06/10/22 0905) propofol, 0-50 mcg/kg/min, Last Rate: 50 mcg/kg/min (06/10/22 1006) sodium chloride 0.9%, 10 mL/hr, Last Rate: 10 mL/hr (06/10/22 1000) sodium chloride 0.9%, 10 mL/hr, Last Rate: 10 mL/hr (06/09/22 0700) sodium chloride 0.9%, 10 mL/hr sodium chloride 0.9%, 10 mL/hr, Last Rate: 10 mL/hr (06/09/22 0700) sodium chloride 0.9%, 6 mL/hr, Last Rate: 6 mL/hr (06/10/22 1000) sodium chloride 0.9%, 1,000 mL sodium chloride 0.9%, 3-12 mL/hr sodium chloride 0.9%, 3-12 mL/hr sodium chloride 0.9%, 3-12 mL/hr, Last Rate: 3 mL/hr (06/10/22 1000) PRN Meds: acetaminophen albuterol HFA bisacodyL bisacodyl EC dextrose OR dextrose dextrose 5% water dextrose 5% water fentaNYL fentaNYL fluticasone propionate glucagon Dialysis Access Care AND heparin heparin OR heparin lidocaine ondansetron ODT OR ondansetron phenoL polyethylene glycol ramelteon sodium chloride 0.9% Lab Review: Sodium Date Value Ref Range Status 06/10/2022 135 135 - 145 mmol/L Final Potassium, pl Date Value Ref Range Status 06/10/2022 4.3 3.3 - 4.9 mmol/L Final BUN Date Value Ref Range Status 06/10/2022 20 8 - 25 mg/dL Final Creatinine Date Value Ref Range Status 06/10/2022 2.44 (H) 0.80 - 1.30 mg/dL Final Phosphorus, pl Date Value Ref Range Status 06/09/2022 3.2 2.3 - 4.5 mg/dL Final Albumin Date Value Ref Range Status 06/10/2022 3.0 (L) 3.5 - 5.0 g/dL Final Magnesium Date Value Ref Range Status 06/10/2022 2.4 1.4 - 2.5 mg/dL Final Calcium Date Value Ref Range Status 06/10/2022 8.4 (L) 8.5 - 10.3 mg/dL Final ALT Date Value Ref Range Status 06/10/2022 45 7 - 55 Units/L Final AST Date Value Ref Range Status 06/10/2022 117 (H) 10 - 50 Units/L Final Alk phos Date Value Ref Range Status 06/10/2022 169 (H) 40 - 130 Units/L Final Lipase Date Value Ref Range Status 06/09/2022 21 10 - 99 Units/L Final Lab Results Component Value Date HGBA1C 7.8 (H) 06/04/2022 HDL 34 (L) 06/04/2022 LDLCALC 82 06/04/2022 CHOL 149 06/04/2022 TRIG 172 (H) 06/07/2022 Nursing Assessment: Intake/Output Summary (Last 24 hours) at 06/10/2022 1421 Last data filed at 06/10/2022 1300 Gross per 24 hour Intake 2229.62 ml Output 5063 ml Net -2833.38 ml Gastrointestinal Gastrointestinal (WDL): Exceptions to WDL Abdomen Inspection: Rounded, Taut Bowel Sounds (All Quadrants): Hypoactive Palpation: Rigid Last BM Date: 06/03/22 Passing Flatus: Yes GI Symptoms: Constipation Gastrointestinal Additional Assessments: No Last BM Date: 06/03/22 Rex Scale Score: 12 Skin Integrity: Puncture, Bruising Edema: Mild pitting, silght indention Dietary Orders (From admission, onward) Start Ordered 06/10/22 1404 Diet, Tube Feeding With Tray Glucerna 1.5 nikos; 45 (begin at 10 ml/hr, and increase 10ml/hr q 8 hrs until goal rate 45 ml/hr reached); 30; Water; Every 4 hours Diet effective now Question Answer Comment Tube Feeding Formula: Glucerna 1.5 nikos Tube Feeding Continuous (mL/hr): 45 begin at 10 ml/hr, and increase 10 ml/hr q 8 hrs until goal rate 45 ml/hr reached Tube Feeding Flush (mL): 30 Flush Type: Water Flush Frequency: Every 4 hours 06/10/22 1415 06/10/22 0001 NPO Diet Diet effective midnight 06/09/22213806/08/22 2100 Bedtime snack At bedtime Comments: If bedtime BG is less than 100mg/dl, give patient a 15 gram carbohydrate snack. 06/08/22 0424 06/05/22 2100 Bedtime snack At bedtime Comments: If bedtime BG is less than 100mg/dl, give patient a 15 gram carbohydrate snack. 06/05/22 0245 Impression: Pt intubate, with NGT in place. BUN 20, Creat 2.44, Na 135, Ca 8.4, A1c 7.8 NUTRITION DIAGNOSIS Nutrition Diagnosis 1: Inadequate energy intake Related to: NPO status Evidenced by: Need for full tube feeding INTERVENTION Recommend Glucerna 1.5 @ 45 ml/hr begin at 10 ml/hr and increased 10 ml q 8 hrs with 30 ml flush q 4 hrs TF provides 1620 kcal/day (11.9 kcal/kg), 89 g protein/day(1.21g/kg IBW), and 1000 ml fluid/day Monitor electrolytes, replete PRN Follow aspiration precautions GOALS / MONITORING: Goals: Tolerance of enteral feeding at goal rate Interventions: Enteral nutrition administration Monitoring and Evaluation: TF tolerance Ronny Vasquez MS RDN LD Nut Sifter RD number [phone] * Patricio Pearce MD - 06/09/2022 1:10 PM CDTAssociated Order(s): IP CONSULT TO PULMONOLOGY Pulmonary Consult Subjective Patient is a 51 y.o. male with chief complaint of hypoxemic respiratory failure. Reason for Consult: Concern for ARDS given hypoxia out of proportion to volume overload. Would loveyour help with severe hypoxic respiratory failure management. Requesting Provider: Brianna ARNOLD HPI: Mr. Garvin is a 51 year old man history of CAD, DM1, ESRD on PD, presented for complex PCI, foundto have cholecystitis, now in CCU with cardiogenic shock; pulmonary is consulted for hypoxemic respiratory failure. Briefly, the patient was transferred to [facility] for complex PCI for NSTEMI on 06/04. He was initially on the medicine floor then went into flash pulmonary edema in setting of hypertension and NSTEMI and was transferred to the MICU for NPPV. CXR showed significant pulmonary edema. Labs notable for BNP 58746, trops 4000. He was also found to have cholecystitis; deemed too high risk for procedures by teresa gical service, managed with antibiotics (meropenem). On 06/07 he went for C and PCI was performed to L dominant circumflex and OM. During the procedure he developed profound hypoxemia and was emergently intubated by anesthesia. An impella was placed and the patient started on inhaled epoprostenol. He was admitted to CCU initially on 100%/15. SerialCXR show pulmonary edema that is asymmetric L > R, and no significant pleural effusion. A temporary dialysis line was placed and he has been getting CVVHD instead of PD with aggressive fluid removal (currently at 350/hr UF). Impella still in place. TTE demonstrated a tilated LV with anterior wall hypokinesis, dilated RV with normal RV systolic function. [place] numbers from earlier today indicat PA 36/17, CVP 10, wedge 14. He remains on inhaled epo @ 6 and hypoxemia has improved over the last 48h, now down to 20/500/70%/12 with gas on that 7.43/39/107. On my exam plat 25 on PEEP [address] of 13[address] Synchronous with ventilator. Primary team is concerned that his degree of hypoxemic respiratory failure is not fully explained by the volume overload, in light of relatively unimpressive [place] numbers and is wondering if there iscomponent of non-cardiogenic edema. Past Medical History: Diagnosis Date CAD (coronary artery disease) Chest pain Diabetes mellitus ([facility]) Diabetes mellitus type I (HCC) Dialysis patient ([facility]) (HCC) ESRD on dialysis ([facility]) ([facility]) GERD (gastroesophageal reflux disease) Hyperlipidemia Hypertension Sleep apnea SOB (shortness of breath) Past Surgical History: Procedure Laterality Date APPENDECTOMY Appendectomy APPENDECTOMY CORONARY ANGIOPLASTY WITH STENT PLACEMENT FEMUR SURGERY KNEE SURGERY knee surgery OPEN REDUCTION INTERNAL FIXATION ORIF OTHER SURGICAL HISTORY eye surg-vitrectomy Medications Prior to Admission Medication Sig Dispense Refill Last Dose amLODIPine (NORVASC) 10 mg tablet Take 10 mg by mouth daily aspirin 81 mg enteric coated tablet Take 1 tablet by mouth daily atorvastatin (LIPITOR) 80 mg tablet Take 80 mg by mouth daily calcitRIOL (ROCALTROL) 0.25 mcg capsule Take 0.25 mcg by mouth daily calcium acetate,phosphat bind, (PHOSLO) 667 mg capsule Take 667 mg by mouth 4 (four) times a day (with meals and nightly) With meals and snack cetirizine (ZyrTEC) 10 mg tablet Take 10 mg by mouth daily as needed for allergies cholecalciferol (VITAMIN D-3) 2000 unit tablet Take 50,000 Units by mouth once a week cloNIDine (CATAPRES) 0.1 mg tablet Take 0.2 mg by mouth every 8 (eight) hours clopidogrel (PLAVIX) 75 mg tablet TAKE 1 TABLET BY MOUTH DAILY 90 tablet 0 colchicine (Colcrys) 0.6 mg tablet Take one tablet po every Monday, Monday and Monday. doxycycline monohydrate (ADOXA) 50 mg tablet Take 50 mg by mouth 2 (two) times a day EZETIMIBE ORAL Take 10 mg by mouth daily furosemide (LASIX) 80 mg tablet Take 80 mg by mouth 2 (two) times a day hydrALAZINE (APRESOLINE) 100 mg tablet TAKE 1 TABLET BY MOUTH EVERY 8 HOURS 90 tablet 5 insulin aspart U-100 (NovoLOG) 100 unit/mL cartridge Inject under the skin Basal rate 1200 am to 0500 am 5.25; from 5 am to 8 pm 1.8; from 8pm to 12 am 5.5 isosorbide mononitrate ER (IMDUR) 30 mg 24 hr tablet TAKE 1 TABLET BY MOUTH EVERY DAY 90 tablet 0 meloxicam (MOBIC) 7.5 mg tablet Take 7.5 mg by mouth 2 (two) times a day metoprolol (LOPRESSOR) 100 mg tablet Take 100 mg by mouth every 12 (twelve) hours omeprazole (PriLOSEC) 20 mg capsule Take 20 mg by mouth daily pen needle, diabetic (BD Ultra-Fine Short Pen Needle) 31 gauge x 5/16 needle U ONE PEN NEEDLE TO INJ INSULIN SC QID ranolazine ER (RANEXA) 500 mg 12 hr tablet Take 500 mg by mouth 2 (two) times a day UNABLE TO FIND Zalacyclovir take one tablet three times daily Scheduled Meds:[Held by Provider] amLODIPine, 10 mg, oral, Daily aspirin, 81 mg, feeding tube, Daily atorvastatin, 80 mg, feeding tube, Daily calcitRIOL, 0.25 mcg, feeding tube, Daily [Held by Provider] calcium acetate(phosphat bind), 667 mg, oral, QID chlorhexidine, 15 mL, mouth/throat, BID [Held by Provider] cloNIDine, 0.1 mg, oral, BID clopidogreL, 75 mg, feeding tube, Daily docusate, 100 mg, feeding tube, Daily [Held by Provider] ergocalciferol, 50,000 Units, oral, Weekly ezetimibe, 10 mg, feeding tube, Daily [Held by Provider] hydrALAZINE, 100 mg, oral, Q8H insulin glargine, 33 Units, subcutaneous, QAM insulin lispro, 0-10 Units, subcutaneous, Q4H ASHLEY [Held by Provider] isosorbide mononitrate ER, 30 mg, oral, Daily meropenem, 1,000 mg, intravenous, Q12H ASHLEY [Held by Provider] metoprolol tartrate, 12.5 mg, oral, Q6H [Held by Provider] nystatin, 500,000 Units, swish & spit, QID pantoprazole, 40 mg, intravenous, BID polyethylene glycol, 17 g, feeding tube, Daily [Held by Provider] ranolazine ER, 500 mg, oral, BID [Held by Provider] terazosin, 2 mg, oral, Nightly Continuous Infusions:dextrose 10%, 10 mL/hr, Last Rate: 10 mL/hr (06/09/22 0800) epoprostenol, 120 mcg/hr, Last Rate: 120 mcg/hr (06/09/22 1144) fentaNYL, 0-400 mcg/hr, Last Rate: 150 mcg/hr (06/09/22 1300) impella purge solution infusion, 0-30 mL/hr, Last Rate: 16.1 mL/hr (06/09/22 0800) heparin, 0-33 Units/kg/hr, Last Rate: 9 Units/kg/hr (06/09/22 1300) nitroglycerin, 0-400 mcg/min, Last Rate: Stopped (06/05/22 2100) norepinephrine, 0-2 mcg/kg/min (Dosing Weight), Last Rate: Stopped (06/08/22 0745) NxStage 4-potassium/2.5-calcium, 1,400 mL/hr, Last Rate: 1,400 mL/hr (06/09/22 1031) NxStage 4-potassium/2.5-calcium, 1,400 mL/hr, Last Rate: 1,400 mL/hr (06/09/22 1030) propofol, 0-50 mcg/kg/min, Last Rate: 40 mcg/kg/min (06/09/22 1300) sodium chloride 0.9%, 10 mL/hr, Last Rate: 10 mL/hr (06/09/22 0700) sodium chloride 0.9%, 10 mL/hr, Last Rate: 10 mL/hr (06/09/22 0700) sodium chloride 0.9%, 10 mL/hr sodium chloride 0.9%, 10 mL/hr, Last Rate: 10 mL/hr (06/09/22 0700) sodium chloride 0.9%, 6 mL/hr, Last Rate: 6 mL/hr (06/09/22 0700) sodium chloride 0.9%, 1,000 mL sodium chloride 0.9%, 3-12 mL/hr sodium chloride 0.9%, 3-12 mL/hr sodium chloride 0.9%, 3-12 mL/hr, Last Rate: Stopped (06/07/22 1901) PRN Meds:. acetaminophen albuterol HFA bisacodyL bisacodyl EC dextrose OR dextrose dextrose 5% water dextrose 5% water fentaNYL fentaNYL fluticasone propionate glucagon Dialysis Access Care AND heparin heparin OR heparin lidocaine ondansetron ODT OR ondansetron phenoL polyethylene glycol ramelteon sodium chloride 0.9% Allergies Allergen Reactions Allopurinol Other (See comments) and Shortness of breath Shuts my kidneys down per patient. Shuts my kidneys down per patient. Contrast Dye [Iodinated Contrast Media] Rash Other Rash Rash Iodinated Diagnostic Agents Ticagrelor Rash Rash Social History Tobacco Use Smoking status: Never Smokeless tobacco: Former Substance and Sexual Activity Drug use: No Sexual activity: Defer Alcohol Use: Not At Risk Frequency of Alcohol Consumption: Monthly or less Average Number of Drinks: 3 or 4 Frequency of Binge Drinking: Never Family History Problem Relation Age of Onset Heart attack Father Review of Systems: Review of systems per HPI and otherwise all other systems are negative Objective Vitals: 24hr Min/Max: Pulse Min: 42 Max: 76 Resp Min: 20 Max: 21 SpO2 Min: 86 % Max: 96 % Most Recent : Vitals: 06/09/22 1300 BP: Pulse: (!) 48 Resp: 20 Temp: SpO2: 94% Intake/Output Summary (Last 24 hours) at 06/09/2022 1310 Last data filed at 06/09/2022 1300 Gross per 24 hour Intake 2390.45 ml Output 5345 ml Net -2954.55 ml Physical Exam: Gen: intubated and sedated HEENT: ETT in place, NGT in place Pulm: synchronous with ventilator, coarse breath sounds bilaterally CV: impella device Abd: soft and non-tender Ext: 2+ edema Skin: no rashes Neuro: sedated. Moved all extremities spontaneously Lab/Radiology/Diagnostic Review: I have reviewed labs. Pertinent findings include: normal wbc Recent Results (from the past 24 hour(s)) Oxyhemoglobin, pulmonary artery Collection Time: 06/08/22 4:20 PM Result Value Ref Range Oxyhemoglobin, PA 63.1 % Blood gas, arterial Collection Time: 06/08/22 4:20 PM Result Value Ref Range pH, Art 7.44 7.35 - 7.45 PCO2, Arterial 36 35 - 45 mmHg PO2, Arterial 156 (H) 83 - 108 mmHg HCO3 Art (Calculated) 25 20 - 30 mmol/L BE, art 0 mmol/L O2 Sat Art (Measured) 98 (H) 90 - 95 % Hemoglobin total, pulmonary artery Collection Time: 06/08/22 4:20 PM Result Value Ref Range Hemoglobin total, PA 8.4 (L) 13.0 - 17.5 g/dL aPTT Collection Time: 06/08/22 4:20 PM Result Value Ref Range aPTT 25 (L) 27 - 37 sec Lactate, whole blood Collection Time: 06/08/22 4:20 PM Result Value Ref Range Lactate, bld 1.2 0.7 - 2.0 mmol/L POCT glucose Collection Time: 06/08/22 4:20 PM Result Value Ref Range Glucose, POC 135 70 - 199 mg/dL POCT glucose Collection Time: 06/08/22 8:03 PM Result Value Ref Range Glucose, POC 162 70 - 199 mg/dL POCT glucose Collection Time: 06/08/22 8:04 PM Result Value Ref Range Glucose, POC 153 70 - 199 mg/dL CBC with auto differential Collection Time: 06/08/22 8:08 PM Result Value Ref Range WBC 9.3 3.8 - 9.9 K/cumm Hgb 6.9 (L) 13.0 - 17.5 g/dL Hct 19.9 (L) 38.9 - 50.3 % Plt 207 150 - 400 K/cumm MPV 11.2 9.1 - 12.3 fL RBC 2.20 (L) 4.30 - 5.80 M/cumm MCV 90.5 81.3 - 96.4 fL MCH 31.4 27.1 - 33.3 pg MCHC 34.7 32.3 - 35.7 g/dL RDW CV 13.5 11.1 - 14.9 % RDW SD 44.4 35.7 - 48.1 fL NRBC abs 0.00 0.00 - 0.01 K/cumm Comprehensive metabolic panel Collection Time: 06/08/22 8:08 PM Result Value Ref Range Sodium 136 135 - 145 mmol/L Potassium, pl 4.3 3.3 - 4.9 mmol/L Chloride 100 97 - 110 mmol/L CO2 27 22 - 32 mmol/L Anion gap 9 2 - 15 mmol/L BUN 42 (H) 8 - 25 mg/dL Creatinine 4.73 (H) 0.80 - 1.30 mg/dL Glucose 146 70 - 199 mg/dL Calcium 8.4 (L) 8.5 - 10.3 mg/dL Bilirubin, total 0.5 0.1 - 1.2 mg/dL Protein, pl 5.8 (L) 6.5 - 8.5 g/dL Albumin 2.8 (L) 3.5 - 5.0 g/dL Alk phos 153 (H) 40 - 130 Units/L ALT 40 7 - 55 Units/L AST 137 (H) 10 - 50 Units/L Lactate dehydrogenase (LD) Collection Time: 06/08/22 8:08 PM Result Value Ref Range Lactate dehydrogenase (LDH) 444 (H) 100 - 250 Units/L Beta-hydroxybutyrate Collection Time: 06/08/22 8:08 PM Result Value Ref Range Beta-Hydroxybutyrate 0.3 0.0 - 0.5 mmol/L Respiratory pathogen panel Nasopharyngeal Collection Time: 06/08/22 8:08 PM Specimen: Nasopharyngeal Result Value Ref Range Influenza A RNA Not Detected Not Detected Influenza B RNA Not Detected Not Detected RSV RNA Not Detected Not Detected COVID-19 RNA Not Detected Not Detected Coronavirus 229E RNA Not Detected Not Detected Coronavirus HKU1 RNA Not Detected Not Detected Coronavirus NL63 RNA Not Detected Not Detected Coronavirus OC43 RNA Not Detected Not Detected Adenovirus DNA Not Detected Not Detected Metapneumovirus RNA Not Detected Not Detected Rhinovirus/Enterovirus RNA Not Detected Not Detected Parainfluenza 1 RNA Not Detected Not Detected Parainfluenza 2 RNA Not Detected Not Detected Parainfluenza 3 RNA Not Detected Not Detected Parainfluenza 4 RNA Not Detected Not Detected B. pertussis DNA Not Detected Not Detected B. parapertussis DNA Not Detected Not Detected C. pneumoniae DNA Not Detected Not Detected M. pneumoniae DNA Not Detected Not Detected Oxyhemoglobin, pulmonary artery Collection Time: 06/08/22 8:08 PM Result Value Ref Range Oxyhemoglobin, PA 69.9 % Hemoglobin total, pulmonary artery Collection Time: 06/08/22 8:08 PM Result Value Ref Range Hemoglobin total, PA 8.7 (L) 13.0 - 17.5 g/dL Blood gas, arterial Collection Time: 06/08/22 8:08 PM Result Value Ref Range pH, Art 7.44 7.35 - 7.45 PCO2, Arterial 36 35 - 45 mmHg PO2, Arterial 140 (H) 83 - 108 mmHg HCO3 Art (Calculated) 25 20 - 30 mmol/L BE, art 0 mmol/L O2 Sat Art (Measured) 99 (H) 90 - 95 % Differential, auto Collection Time: 06/08/22 8:08 PM Result Value Ref Range Neutrophil abs 7.0 (H) 1.7 - 6.5 K/cumm Imm gran abs 0.4 (H) 0.0 - 0.1 K/cumm Lymphocyte abs 0.9 0.8 - 3.3 K/cumm Monocyte abs 0.9 (H) 0.2 - 0.8 K/cumm Eosinophil abs 0.1 0.0 - 0.5 K/cumm Basophil abs 0.0 0.0 - 0.1 K/cumm Neutrophil pct 75.3 % Imm gran pct 3.8 % Lymphocyte pct 10.0 % Monocyte pct 9.8 % Eosinophil pct 1.0 % Basophil pct 0.1 % Lipase Collection Time: 06/08/22 8:08 PM Result Value Ref Range Lipase 11 10 - 99 Units/L Haptoglobin Collection Time: 06/08/22 8:08 PM Result Value Ref Range Haptoglobin 219.0 (H) 30.0 - 200.0 mg/dL eGFR Collection Time: 06/08/22 8:08 PM Result Value Ref Range eGFR 14 (L) 90 - 130 mL/min/1.73 m2 Magnesium Collection Time: 06/08/22 8:08 PM Result Value Ref Range Magnesium 2.4 1.4 - 2.5 mg/dL Phosphorus Collection Time: 06/08/22 8:08 PM Result Value Ref Range Phosphorus, pl 3.7 2.3 - 4.5 mg/dL POCT glucose Collection Time: 06/08/22 11:25 PM Result Value Ref Range Glucose, POC 156 70 - 199 mg/dL aPTT Collection Time: 06/08/22 11:27 PM Result Value Ref Range aPTT 44 (H) 27 - 37 sec Oxyhemoglobin, pulmonary artery Collection Time: 06/08/22 11:27 PM Result Value Ref Range Oxyhemoglobin, PA 57.4 % Hemoglobin total, pulmonary artery Collection Time: 06/08/22 11:27 PM Result Value Ref Range Hemoglobin total, PA 8.1 (L) 13.0 - 17.5 g/dL Hemoglobin and hematocrit Collection Time: 06/08/22 11:27 PM Result Value Ref Range Hgb 7.5 (L) 13.0 - 17.5 g/dL Hct 22.0 (L) 38.9 - 50.3 % POCT glucose Collection Time: 06/09/22 4:06 AM Result Value Ref Range Glucose, POC 147 70 - 199 mg/dL Urinalysis reflex to microscopic and culture Urine Collection Time: 06/09/22 4:08 AM Specimen: Urine Result Value Ref Range Color, ur Yellow Yellow Clarity, ur Clear Clear Specific gravity, ur 1.018 1.003 - 1.030 pH, urine 5.5 Protein, ur ql 1+ (A) Negative Glucose, ur ql 4+ (A) Negative Ketones, ur Negative Negative Bilirubin, ur Negative Negative Blood, ur 2+ (A) Negative Urobilinogen, ur <2.0 <2.0 mg/dL Nitrite, ur Negative Negative Leukocyte esterase, ur Negative Negative UA reflex comment Reflex to microscopic UA will be performed. Urinalysis, microscopic only Collection Time: 06/09/22 4:08 AM Result Value Ref Range WBC, ur 0-5 0 - 5 /HPF RBC, ur 6-10 (A) 0 - 2 /HPF Hyaline casts, ur 1-5 0 - 10 /LPF Granular casts, ur 1-5 (A) 0 - 0 /LPF Culture Reflex Comment Reflex conditions for urine culture (WBC >10) not met. Blood gas, arterial Collection Time: 06/09/22 5:24 AM Result Value Ref Range pH, Art 7.44 7.35 - 7.45 PCO2, Arterial 38 35 - 45 mmHg PO2, Arterial 71 (L) 83 - 108 mmHg HCO3 Art (Calculated) 26 20 - 30 mmol/L BE, art 2 mmol/L O2 Sat Art (Measured) 94 90 - 95 % aPTT Collection Time: 06/09/22 5:24 AM Result Value Ref Range aPTT 66 (H) 27 - 37 sec POCT glucose Collection Time: 06/09/22 7:55 AM Result Value Ref Range Glucose, POC 155 70 - 199 mg/dL CBC with auto differential Collection Time: 06/09/22 7:57 AM Result Value Ref Range WBC 8.6 3.8 - 9.9 K/cumm Hgb 8.1 (L) 13.0 - 17.5 g/dL Hct 23.5 (L) 38.9 - 50.3 % Plt 179 150 - 400 K/cumm MPV 11.1 9.1 - 12.3 fL RBC 2.61 (L) 4.30 - 5.80 M/cumm MCV 90.0 81.3 - 96.4 fL MCH 31.0 27.1 - 33.3 pg MCHC 34.5 32.3 - 35.7 g/dL RDW CV 13.4 11.1 - 14.9 % RDW SD 44.2 35.7 - 48.1 fL NRBC abs 0.00 0.00 - 0.01 K/cumm Oxyhemoglobin, pulmonary artery Collection Time: 06/09/22 7:57 AM Result Value Ref Range Oxyhemoglobin, PA 55.8 % Hemoglobin total, pulmonary artery Collection Time: 06/09/22 7:57 AM Result Value Ref Range Hemoglobin total, PA 8.7 (L) 13.0 - 17.5 g/dL Type and screen Collection Time: 06/09/22 7:57 AM Result Value Ref Range ABO Rh A Positive Maribel, indirect Negative Lactate, whole blood Collection Time: 06/09/22 7:57 AM Result Value Ref Range Lactate, bld 1.1 0.7 - 2.0 mmol/L Blood gas, arterial Collection Time: 06/09/22 7:57 AM Result Value Ref Range pH, Art 7.43 7.35 - 7.45 PCO2, Arterial 39 35 - 45 mmHg PO2, Arterial 107 83 - 108 mmHg HCO3 Art (Calculated) 27 20 - 30 mmol/L BE, art 2 mmol/L O2 Sat Art (Measured) 97 (H) 90 - 95 % Potassium, whole blood Collection Time: 06/09/22 7:57 AM Result Value Ref Range Potassium, bld 4.2 3.3 - 4.9 mmol/L Comprehensive metabolic panel Collection Time: 06/09/22 7:57 AM Result Value Ref Range Sodium 134 (L) 135 - 145 mmol/L Potassium, pl 4.5 3.3 - 4.9 mmol/L Chloride 99 97 - 110 mmol/L CO2 28 22 - 32 mmol/L Anion gap 7 2 - 15 mmol/L BUN 32 (H) 8 - 25 mg/dL Creatinine 3.50 (H) 0.80 - 1.30 mg/dL Glucose 171 70 - 199 mg/dL Calcium 8.4 (L) 8.5 - 10.3 mg/dL Bilirubin, total 0.6 0.1 - 1.2 mg/dL Protein, pl 5.8 (L) 6.5 - 8.5 g/dL Albumin 2.8 (L) 3.5 - 5.0 g/dL Alk phos 165 (H) 40 - 130 Units/L ALT 43 7 - 55 Units/L AST 133 (H) 10 - 50 Units/L Magnesium Collection Time: 06/09/22 7:57 AM Result Value Ref Range Magnesium 2.3 1.4 - 2.5 mg/dL Differential, auto Collection Time: 06/09/22 7:57 AM Result Value Ref Range Neutrophil abs 5.8 1.7 - 6.5 K/cumm Imm gran abs 0.5 (H) 0.0 - 0.1 K/cumm Lymphocyte abs 1.2 0.8 - 3.3 K/cumm Monocyte abs 1.0 (H) 0.2 - 0.8 K/cumm Eosinophil abs 0.2 0.0 - 0.5 K/cumm Basophil abs 0.0 0.0 - 0.1 K/cumm Neutrophil pct 67.0 % Imm gran pct 5.6 % Lymphocyte pct 13.6 % Monocyte pct 11.4 % Eosinophil pct 2.2 % Basophil pct 0.2 % eGFR Collection Time: 06/09/22 7:57 AM Result Value Ref Range eGFR 20 (L) 90 - 130 mL/min/1.73 m2 POCT glucose Collection Time: 06/09/22 11:58 AM Result Value Ref Range Glucose, POC 171 70 - 199 mg/dL aPTT Collection Time: 06/09/22 11:59 AM Result Value Ref Range aPTT 79 (H) 27 - 37 sec Oxyhemoglobin, pulmonary artery Collection Time: 06/09/22 11:59 AM Result Value Ref Range Oxyhemoglobin, PA 65.2 % Hemoglobin total, pulmonary artery Collection Time: 06/09/22 11:59 AM Result Value Ref Range Hemoglobin total, PA 10.2 (L) 13.0 - 17.5 g/dL Lactate, whole blood Collection Time: 06/09/22 11:59 AM Result Value Ref Range Lactate, bld 1.3 0.7 - 2.0 mmol/L I have reviewed radiology images: Pertinent findings include: asymmetric L > R pulmonary edema with trace L pleural effusion. Assessment/Plan Acute hypoxemic respiratory failure (HCC) Assessment & Plan Mr. Garvin is a 51 year old man history of CAD, DM1, ESRD on PD, presented for complex PCI, foundto have cholecystitis, now in CCU with cardiogenic shock; pulmonary is consulted for hypoxemic respiratory failure. Primary team is concerned that his degree of hypoxemic respiratory failure is not fully explained by the volume overload, in light of his swan numbers and is wondering if there is component of non-cardiogenic edema. Overall the clinical picture and imaging is consistent with cardiogenic pulmonary edema, and his hypoxemia is improving over the last 48h with aggressive volume removal and treatment of his cardiogenic shock. There certainly could be a component of non-cardiogenic pulmonary edema (ie acute lung injury) caused by infection, aspiration or other process. Regardless, lung protective ventilation wouldbe the management and he is getting appropriate ventilation and his pressures on the vent are at goal (plat 25, drive 13). No clear evidence of pneumonia; he is on meropenem for cholecystitis with nosigns of worsening sepsis (blood cultures negative) and WBC has normalized. No evidence of intracardiac shunting or other reason for profound hypoxemia. Next step would be to try to wean off epo; TTEshowed no significant RV dysfunction. Recommendations: -continue aggressive volume removal -continue lung protective ventilation keeping plat pressures < 30 -would try to wean off epoprostenol over the next day Pulmonary consults will continue to follow. Please contact the pulmonary consult fellow with questions New Pearce MD Pulmonary & Critical Care Fellow Cosigned by Girish Grant MD at 06/09/2022 4:35 PM CDT Associated attestation - Girish Grant MD - 06/09/2022 4:35 PM CDT I have seen and examined the patient on 06/09/22. I agree with the findings and plan of care as documented in the resident's/fellow's note. and as discussed with the resident/fellow.. * Jersey Mayer MD - 06/06/2022 2:00 PM CDTAssociated Order(s): IP CONSULT TO GENERAL SURGERY [facility] Acute Care Surgery Consult Note Requesting Consult: Conrad Akers MD Reason for Consult: cholecystitis Assessment: 51M w/PMHB CHF (EF 50% 2016), Afib (not on AC), HTN, CAD s/p stent 04/06 and 3 stent 12/07, T1DM (insulin pump at home), ESRD on PD, HLD, GERD, hyperparathyroidism, DDD, OA, gout, BEN on CPAP [facility] weakness, n/v, diarrhea, and chest pain, transferred[facility] on 06/[facility] for LHC/PCI scheduled for 06/06. Pt was found to have an NSTEMI at OSH and was continued on hep gtt, asa81, plavix at [facility]. He was transferred to MICU after he was placed on NIPPV during an ACT for hypoxic respiratory failure. Pt is now currently on 10L 60% HFNC. Pt has also endorsed RUQ abdominal pain for the past 4 days. Pt notes he has had this pain prior, 2-3 times every few months for the past few years but it has always resolved a few hours after onset.Pt was started on meropenem on 06/05 for presumed cholecystitis. RUQ US performed 06/05/22 that showed: GB enlarged, stones/sludge in GB, GB wall thickening, pericholecystic fluid. tBili 0.6, WBC 9.1, BMI 44.9. Plan: - no acute surgical intervention at this time - HIDA scan for further evaluation of GB pathology - [facility] will continue to follow Plan above has been discussed with attending Dr. Gamez. Please contact [facility] Inpatient Consults at with any questions or concerns regarding the surgical management of this patient. Addy Mayer MD Resident Physician General Surgery [facility] Inpatient Consult History of Present Illness: 51M w/PMHB CHF (EF 50% 2016), Afib (not on AC), HTN, CAD s/p stent 04/06 and 3 stent 12/07, T1DM (insulin pump at home), ESRD on PD, HLD, GERD, hyperparathyroidism, DDD, OA, gout, BEN on CPAP initiallypresented to [facility] for generalized weakness, n/v, diarrhea, and chest pain, transferredto [facility] on 06/05 for LHC/PCI scheduled for 06/06. Pt was found to have an NSTEMI at OSH and was continued on hep gtt, asa81, plavix at [facility]. He was transferred to MICU after he was placed on NIPPV during an ACT for hypoxic respiratory failure. Pt is now currently on 10L 60% HFNC. Pt has also endorsed RUQ abdominal pain for the past 4 days. Pt notes it is worse with palpation, no palliating factors, not associated with meals. Pt also notes multiple days of n/v, diarrhea prior to presentation. Pt notes he has had this pain prior, 2-3 times every few months for the past few years but it has always resolved a few hours after onset. Pt was started on meropenem on 06/05 for presumed cholecystitis. RUQ US performed 06/05/22 that showed: GB enlarged, stones/sludge in GB, GB wall thickening, pericholecystic fluid. tBili 0.6, WBC 9.1, BMI 44.9. Past Medical History: Past Medical History: Diagnosis Date CAD (coronary artery disease) Chest pain Diabetes mellitus ([facility]) Diabetes mellitus type I ([facility]) Dialysis patient ([facility]) ESRD on dialysis ([facility]) GERD (gastroesophageal reflux disease) Hyperlipidemia Hypertension Sleep apnea SOB (shortness of breath) Past Surgical History: Past Surgical History: Procedure Laterality Date APPENDECTOMY Appendectomy APPENDECTOMY CORONARY ANGIOPLASTY WITH STENT PLACEMENT FEMUR SURGERY KNEE SURGERY knee surgery OPEN REDUCTION INTERNAL FIXATION ORIF OTHER SURGICAL HISTORY eye surg-vitrectomy Allergies: Allergies Allergen Reactions Allopurinol Other (See comments) and Shortness of breath Shuts my kidneys down per patient. Shuts my kidneys down per patient. Contrast Dye [Iodinated Contrast Media] Rash Other Rash Rash Iodinated Diagnostic Agents Ticagrelor Rash Rash Family History: Family History Problem Relation Age of Onset Heart attack Father Social History: Social History Tobacco Use Smoking status: Never Smokeless tobacco: Former Vaping Use Vaping Use: Never used Substance and Sexual Activity Alcohol use: No Drug use: No Sexual activity: Defer Home Medications: HOME MEDICATIONS : amLODIPine (NORVASC) 10 mg tablet aspirin 81 mg enteric coated tablet atorvastatin (LIPITOR) 80 mg tablet calcitRIOL (ROCALTROL) 0.25 mcg capsule calcium acetate,phosphat bind, (PHOSLO) 667 mg capsule cetirizine (ZyrTEC) 10 mg tablet cholecalciferol (VITAMIN D-3) 2000 unit tablet cloNIDine (CATAPRES) 0.1 mg tablet clopidogrel (PLAVIX) 75 mg tablet colchicine (Colcrys) 0.6 mg tablet doxycycline monohydrate (ADOXA) 50 mg tablet EZETIMIBE ORAL furosemide (LASIX) 80 mg tablet hydrALAZINE (APRESOLINE) 100 mg tablet insulin aspart U-100 (NovoLOG) 100 unit/mL cartridge isosorbide mononitrate ER (IMDUR) 30 mg 24 hr tablet meloxicam (MOBIC) 7.5 mg tablet metoprolol (LOPRESSOR) 100 mg tablet omeprazole (PriLOSEC) 20 mg capsule pen needle, diabetic (BD Ultra-Fine Short Pen Needle) 31 gauge x 5/16 needle ranolazine ER (RANEXA) 500 mg 12 hr tablet UNABLE TO FIND Review of Systems: A full review of systems was completed and was negative unless otherwise stated in the HPI. Objective: BP 136/53 (BP Location: Left arm, Patient Position: HOB 30 degrees) Pulse 63 Temp 37.7 ??C (99.9 ??F) (Bladder) Resp 17 Ht 177.8 cm (5' 10 ) Wt (!) 142 kg (313 lb) SpO2 94% BMI 44.91 kg/m?? Physical Exam: General: No acute distress. HEENT: EOM grossly intact, anicteric. CV: Normal rate and regular rhythm. Respiratory: Non-labored chest rise. Abdomen: Soft, non-distended, obese, tender to palpation in RUQ and epigastrium. Psychiatric: Normal mood/affect. Neurologic: Alert, non-focal. Skin: No rashes or lesions. MSK: Extremities warm, non-edematous. Grossly normal range of motion Labs: Lab Results Component Value Date WBC 9.1 06/05/2022 HGB 9.3 (L) 06/05/2022 HCT 26.0 (L) 06/05/2022 LABPLAT 201 06/05/2022 SODIUM 132 (L) 06/05/2022 POTASSIUM 3.6 06/05/2022 BUN 94 (H) 10/17/2019 CREATININE 9.77 (H) 06/05/2022 BILITOT 0.6 06/05/2022 BILIDIR <0.2 03/21/2017 ALKPHOS 126 06/05/2022 AST 46 06/05/2022 ALT 43 06/05/2022 LIPASE 14 06/05/2022 LACTATE 1.6 06/05/2022 Imaging: XR Abdomen Ap 1 Vw Result Date: 06/06/2022 A single view of the abdomen is submitted for evaluation. The pelvis is excluded from the [id number] and unavailable for interpretation. A rounded density projecting over the left upper quadrant may be external to the patient. Bowel within the imaged upper abdomen is normal in caliber. Dictated by: Shiva Anaya MD The radiology attending physician has personally reviewed this study, and had reviewed and/or edited this written report and agrees with it. Electronically signed by: Kameron Muñoz M.D. XR Chest 1 View Result Date: 06/06/2022 The current study is compared with the prior radiograph dated 06/05/2022 3:14 PM. The cardiomediastinal silhouette is stable. There are persistent diffuse bilateral airspace opacities compatible withmoderate to severe pulmonary edema. The extent of the opacities is similar to slightly increased compared to the prior examination. No definite pleural effusion, though the left costophrenic angle isexcluded. No pneumothorax. Dictated by: Jersey Morales MD The radiology attending physician has personally reviewed this study, and had reviewed and/or edited this written report and agrees with it. Electronically signed by: Saurav Emerson M.D. XR Chest 1 View Result Date: 06/05/2022 Comparison is made to prior study of 06/04/2022 10:32 PM. In the interval, there has been development of moderate to severe pulmonary edema. No pneumothorax is present. No definite pleural effusion on the left. There is a tiny right pleural effusion. The heart size and mediastinal contour are unchanged. Electronically signed by: Saurav Emerson M.D. XR Chest 1 View Result Date: 06/05/2022 Stable cardiomediastinal silhouette with normal heart size. Increase in left base and retrocardiac airspace opacities which could be due to worsening atelectasis or pneumonia. Left lateral costophrenic angle haziness suggestive of small pleural effusion. Increased right infrahilar streaky opacitiesmay represent atelectasis or aspiration. No pneumothorax. Electronically signed by: Dimitrios Slater M.D. US Outside Reference Result Date: 06/05/2022 These images are for Reference purposes only and have not been reviewed by [facility]. There will be no report generated by a [facility] Radiologist. XR Outside Reference Result Date: 06/05/2022 These images are for Reference purposes only and have not been reviewed by [facility]. There will be no report generated by a [facility] Radiologist. US RUQ Result Date: 06/06/2022 Sonographic findings concerning for cholecystitis. Limited evaluation of sonographic Jade's sign.Consider hepatobiliary nuclear scintigraphy / HIDA scan for more complete evaluation. Dictated by: Ponce Garcia M.D. The radiology attending physician has personally reviewed this study, and had reviewed and/or edited this written report and agrees with it. Electronically signed by: Joyce Carbone M.D., Ph.D CT Body Outside Reference Result Date: 06/05/2022 These images are for Reference purposes only and have not been reviewed by [facility]. There will be no report generated by a [facility] Radiologist. IR Outside Reference Result Date: 06/05/2022 These images are for Reference purposes only and have not been reviewed by [facility]. There will be no report generated by a [facility] Radiologist. Assessment/Plan: Please see top of note. Cosigned by Modesta Gamez MD at 06/07/2022 9:34 PM CDT Associated attestation - Modesta Gamez MD - 06/07/2022 9:34 PM CDT I have seen and examined the patient on 06/06/2022. I agree with the findings and plan of care as documented in the resident's/fellow's note. Nona Gamez MD Instructor, Acute and Critical Care Surgery [facility] ' * Hortencia Slade MD - 06/05/2022 2:37 PM CDTAssociated Order(s): CONSULT TO ENDOCRINOLOGY DIABETES Endocrinology & Diabetes Consult Note Patient: Adelia Garvin Jr., 51 y.o. male (: 1970) Room: [place] [address] ( ) LOS: 1 Consult Question: T1DM on insulin pump (Requesting Provider: Champ Osborne MD PhD) Adelia Garvin Jr. is a 51 y.o. male with PMHx CHF (EF 50% in 2017), atrial fibrillation not on OAC, HTN/HLD, CAD s/p PCI, ESRD on PD, hyperparathyroidism presenting with weakness, N/V, diarrhea and chest pain. He is scheduled for LHC on 06/06. Diabetes service consulted for T1DM on insulin pump. HPI Patient is on Omnipod insulin pump and has been for past 1.5 years, uses a Dexcom G6. Insulin pump settings per patient are 1.7u/hr between 8AM and 8PM, and 5.7u/hr between 8PM and 8AM (this is when he gets peritoneal dialysis) Transferred from OSH, currently on Lantus and RSSI. He will be NPO 06/06 for LHC. Type of Diabetes: 1 Duration of diabetes: dx at age 13 Microvascular complications: ESRD on PD Macrovascular complications: CAD s/p PCI, CHF Diet: Adult Diet Restricted; 2 GM Sodium, Low Fat, Low Chol; Consistent Carbohydrate; Renal NPO Diet Recent Labs Lab Units 06/05/22 1422 06/05/22 1123 06/05/22 1007 06/05/22 0847 06/05/22 0845 06/05/22 0633 06/04/22 2304 06/04/22 2252 GLUCOSE mg/dL -- -- -- -- -- -- -- 185 POC GLUCOSE MONITOR mg/dL 389* 402* 403* 398* 458* 373* 191 -- Lab Results Component Value Date HGBA1C 7.4 (H) 03/21/2017 PMH & PSH He has a past medical history of CAD (coronary artery disease), Chest pain, Diabetes mellitus ([facility]), Diabetes mellitus type I ([facility]), Dialysis patient ([facility]), ESRD on dialysis ([facility]), GERD (gastroesophageal reflux disease), Hyperlipidemia, Hypertension, Sleep apnea, and SOB (shortness of breath). He has a past surgical history that includes Other surgical history; Appendectomy; open reduction internal fixation; Knee surgery; Femur Surgery; Appendectomy; and Coronary angioplasty with stent. Social & Family History He reports that he has never smoked. He has quit using smokeless tobacco. He reports that he does not use drugs. Patient denies consuming alcoholic drinks. His family history includes Heart attack in his father. Review of Systems Twelve point ROS reviewed and negative except as noted in HPI. All other systems negative. Vitals & Physical Exam Temp: [36.4 ??C (97.5 ??F)] 36.4 ??C (97.5 ??F) Pulse: [49-71] 53 BP: (138)/(53-71) 138/53 Resp: [20] 20 SpO2: [93 %-95 %] 93 % Body mass index is 44.91 kg/m??. I/O this shift: In: 51332 [P.O.:60; Other:76805] Out: 00566 [Other:19808] Physical Exam Gen : no acute distress, alert, appropriate, cooperative, appears stated age, well-developed, well-nourished HENT : normocephalic, atraumatic, moist mucus membranes Eyes : conjunctiva clear, anicteric, no proptosis/exophthalmos/lid lag, EOMI Pulm : clear to auscultation in anterior charles, non-labored, on room air CV : regular rate & rhythm, no murmurs/rubs/gallops, no JVD Abd : soft, non-tender, non-distended, normoactive bowel sounds Extr : atraumatic, no cyanosis/clubbing/edema Skin : turgor normal, no rashes/wounds/lesions Neuro : alert, speech fluent, comprehension intact, moving all extremities Psych : cooperative, appropriate affect & mood, good insight & judgment Data Medications, labs, imaging, and diagnostics independently reviewed in Epic and commented on below. Lab Results Component Value Date TSH 0.80 03/21/2017 Lab Results Component Value Date CHOL 149 06/04/2022 TRIG 165 (H) 06/04/2022 HDL 34 (L) 06/04/2022 LDLCALC 82 06/04/2022 Lab Results Component Value Date 25HYDROVITD 22.7 (L) 03/22/2017 Lab Results Component Value Date HGBA1C 7.4 (H) 03/21/2017 Assessment & Plan 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, with rodent exterminator use of insulin, complicated by ESRD on PD, CAD s/p PCI, CHF - HbA1c 7.4% - Uses Omnipod and Dexcom G6 at home, not currently on this - On significantly higher basal rates on pump at night due to peritoneal dialysis - Patient's BS spiked this AM into 400s, likely because these were taken while PD was running; given 4u IV regular insulin which did not improve BS, recheck when PD was stopped 389, another 6u IV regular insulin given Recommendations: - Lantus 33 units qAM - Humalog 3 units TID AC - Resistant correctional Humalog TID AC, HS - Start 6u lispro q4 while he gets peritoneal dialysis (8PM, 12AM and 4AM) - POC glucoses TID AC, HS, 2AM - Carb consistent diet; no juice or regular soda If NPO: Continue Lantus Hold mealtime Humalog Change correctional Humalog and POC glucoses to Q4hr Consider D5/0.45NS 100 mls/hr or D10 50 ml/shr if prolonged NPO (>12hrs) Discharge recommendations: Start Omnipod insulin pump at pre-hospital settings ## Discharge Planning - 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 Huynh and primary team -- Hortencia Slade MD Endocrinology, Metabolism, & Lipid Research Diabetes #: Cosigned by Patricio Huynh Jr., MD at 06/05/2022 7:21 PM CDT Associated attestation - Patricio Huynh Jr., MD - 06/05/2022 7:21 PM CDT I have seen and examined the patient on 06/05/22. I agree with the findings and plan of care as documented in the resident's/fellow's note. * Tom Mendez MD - 06/04/2022 10:16 PM CDTAssociated Order(s): IP CONSULT TO NEPHROLOGY NEPHROLOGY INITIAL CONSULTATION REASON FOR CONSULT: 51 yo patient here for PCI, on peritoneal dialysis REQUESTING PROVIDER: Catherine Adams MD CHIEF COMPLAINT: chest pain HPI: Patient is 51 y.o. year old, male with diabetes, coronary artery disease and ESRD on PD who presented to the hospital with chest pain found to have CAD requiring PCI. Renal consultation is requested for the management of ESRD. Pt denies headache, dizziness, chest pain, shortness of breath, or urinary symptoms. Still has residual renal function - makes about 1L urine per day. ESRD Dialysis History: Dialysis History: Peritoneal dialysis. Dialysis Start Date: 2019 Dialysis Days: nightly Dialysis Center: [place], [place] Dialysis Medicine: Dialysis Prescription: CCPD - 4 exchanges of 2.8 L each, total time 9 hours, total volume : 11.2 L.All 2.5 % bags and then a manual day time exchange with 1 L purple bag. Past Medical History: Diagnosis Date CAD (coronary artery disease) Chest pain Diabetes mellitus ([facility]) Diabetes mellitus type I ([facility]) Dialysis patient ([facility]) ESRD on dialysis ([facility]) GERD (gastroesophageal reflux disease) Hyperlipidemia Hypertension Sleep apnea SOB (shortness of breath) Past Surgical History: Procedure Laterality Date APPENDECTOMY Appendectomy APPENDECTOMY CORONARY ANGIOPLASTY WITH STENT PLACEMENT FEMUR SURGERY KNEE SURGERY knee surgery OPEN REDUCTION INTERNAL FIXATION ORIF OTHER SURGICAL HISTORY eye surg-vitrectomy Medications Prior to Admission Medication Sig Dispense Refill Last Dose amLODIPine (NORVASC) 10 mg tablet Take 10 mg by mouth daily aspirin 81 mg enteric coated tablet Take 1 tablet by mouth daily atorvastatin (LIPITOR) 80 mg tablet Take 80 mg by mouth daily calcitRIOL (ROCALTROL) 0.25 mcg capsule Take 0.25 mcg by mouth daily calcium acetate,phosphat bind, (PHOSLO) 667 mg capsule Take 667 mg by mouth 4 (four) times a day (with meals and nightly) With meals and snack cetirizine (ZyrTEC) 10 mg tablet Take 10 mg by mouth daily as needed for allergies cholecalciferol (VITAMIN D-3) 2000 unit tablet Take 50,000 Units by mouth once a week cloNIDine (CATAPRES) 0.1 mg tablet Take 0.2 mg by mouth every 8 (eight) hours clopidogrel (PLAVIX) 75 mg tablet TAKE 1 TABLET BY MOUTH DAILY 90 tablet 0 colchicine (Colcrys) 0.6 mg tablet Take one tablet po every Monday, Monday and Monday. doxycycline monohydrate (ADOXA) 50 mg tablet Take 50 mg by mouth 2 (two) times a day EZETIMIBE ORAL Take 10 mg by mouth daily furosemide (LASIX) 80 mg tablet Take 80 mg by mouth 2 (two) times a day hydrALAZINE (APRESOLINE) 100 mg tablet TAKE 1 TABLET BY MOUTH EVERY 8 HOURS 90 tablet 5 insulin aspart U-100 (NovoLOG) 100 unit/mL cartridge Inject under the skin Basal rate 1200 am to 0500 am 5.25; from 5 am to 8 pm 1.8; from 8pm to 12 am 5.5 isosorbide mononitrate ER (IMDUR) 30 mg 24 hr tablet TAKE 1 TABLET BY MOUTH EVERY DAY 90 tablet 0 meloxicam (MOBIC) 7.5 mg tablet Take 7.5 mg by mouth 2 (two) times a day metoprolol (LOPRESSOR) 100 mg tablet Take 100 mg by mouth every 12 (twelve) hours omeprazole (PriLOSEC) 20 mg capsule Take 20 mg by mouth daily pen needle, diabetic (BD Ultra-Fine Short Pen Needle) 31 gauge x 5/16 needle U ONE PEN NEEDLE TO INJ INSULIN SC QID ranolazine ER (RANEXA) 500 mg 12 hr tablet Take 500 mg by mouth 2 (two) times a day UNABLE TO FIND Zalacyclovir take one tablet three times daily heparin, 7,500 Units, subcutaneous, Q8H ASHLEY Allergies Allergen Reactions Allopurinol Other (See comments) and Shortness of breath Shuts my kidneys down per patient. Shuts my kidneys down per patient. Contrast Dye [Iodinated Contrast Media] Rash Other Rash Rash Iodinated Diagnostic Agents Ticagrelor Rash Rash Social History Socioeconomic History Marital status: Single Spouse name: Not on file Number of children: Not on file Years of education: Not on file Highest education level: Not on file Occupational History Not on file Tobacco Use Smoking status: Never Smokeless tobacco: Former Vaping Use Vaping Use: Never used Substance and Sexual Activity Alcohol use: No Drug use: No Sexual activity: Defer Other Topics Concern Not on file Social History Narrative Not on file Social Determinants of Health Financial Resource Strain: Not on file Food Insecurity: Not on file Transportation Needs: Not on file Physical Activity: Not on file Stress: Not on file Social Connections: Not on file Intimate Partner Violence: Not on file Housing Stability: Not on file Family History Problem Relation Age of Onset Heart attack Father REVIEW OF SYSTEMS: ROS PHYSICAL EXAM: A very pleasant gentleman in no apparent distress VITAL SIGNS: BP 129/61 (BP Location: Left arm, Patient Position: Sitting) Pulse (!) 49 Temp 36.6 ??C (97.9 ??F) (Oral) Resp 20 Ht 177.8 cm (5' 10 ) Wt (!) 142 kg (313 lb) SpO2 92% BMI 44.91 kg/m?? Temp: [36.6 ??C (97.9 ??F)] 36.6 ??C (97.9 ??F) Pulse: [49] 49 BP: (129)/(61) 129/61 Resp: [20] 20 SpO2: [92 %] 92 % HENT: NC / AT. Oral mucosa moist EYES: sclera anicteric, EOMI CVS: RRR, no murmur. Bilateral LE edema. LUNGS: clear to auscultation bilaterally, symmetric expansion, non labored ABD: Soft, non-tender, BS normal. SKIN: No rash or lesions on visible skin BARYTES GRINDER: Alert Ox3. No focal motor deficits, no tremors PSYCH: Pleasant, cooperative, appropriate affect MSK: No joint swelling or tenderness Dialysis Access Exam: PD Catheter Site: LUQ No intake/output data recorded. LABORATORY DATA Lab Results Component Value Date CALCIUM 9.1 10/17/2019 PHOS 5.2 (H) 02/03/2015 Lab Results Component Value Date IRON 22 (L) 03/21/2017 TIBC 185 (L) 03/21/2017 TRANSFERSAT 12 (L) 03/21/2017 FERRITIN 210 03/21/2017 ASSESSMENT AND PLAN ESRD on PD - Schedule: nightly - last OP HD: 06/03/2022 - Access: Lt LQ PD catheter - plan for PD tonight - monitor for intra-dialytic hypotension - monitor daily weights and adjust UF accordingly - dose medication for CrCl < 15ml/min Hypertension - Achieves BP control: yes - adjust UF accordingly Hyperkalemia - renal diet. Monitor daily. Secondary hyperparathyroidism of renal origin - Monitor Ca and Phos daily. Continue calcitriol at this time. Restart phos binder (phos-Lo) once taking PO. Anemia of ESRD - CORRINE and IV iron per outpatient unit, resume if prolonged hospital stay - transfuse for hgb < 7.0 Coronary artery disease - Management per Cardiology service 06/04/22 Tom Mendez MD Nephrology Fellow Cosigned by Vonnie Cody MD at 06/05/2022 1:13 PM CDT Associated attestation - Vonnie Cody MD - 06/05/2022 1:13 PM CDT I saw and examined the patient on 06/05/2022. I agree with the findings and plan of care as documented in the renal fellow's note. Pt transferred from OSH for LHC/PCI which is scheduled for tomorrow. Will continue CCPD while he ishere and adjust PD prescription if needed. Hyponatremia: Please place pt on fluid restriction of < 1.5 L per day. Anemia of ESRD: Monitor Hb but hold off CORRINE given possible ACS. Abdominal pain: Workup per primary team. Could send PD fluid for cell count and diff. Vonnie Cody MD publishing systems analyst documented in this encounter Nursing Notes * Tequila Ingram V., RN - 06/28/2022 8:08 PM CST 9 hour CCPD treatment started as ordered. PD catheter site is clear and free of drainage. PD site was cleansed and gentamicin cream applied at entrance. Covered with gauze dressing. Treatment setup aseptically per protocol. OR ART DIRECTOR * Pj Duckworth RN - 06/28/2022 6:15 AM CST 06/28/22 0600 Vitals BP 124/62 Temp 36.7 ??C (98.1 ??F) Temp src Oral Pulse 70 Resp 16 SpO2 98 % Weight 120.3 kg (265 lb 3.4 oz) Peritoneal Dialysis Dialysis Type CCPD Peritoneal Dialysis Setup Completed by bulb brandercooky machine operator Status End Cycle Number 4 Machine Type [employer] Pro Machine # [id number] Initial Drain Volume (mL) 312 mL Last Fill Volume (mL) 999 mL Fill Volume In (mL) 06803 mL Effluent Volume Out (mL) 41147 ml Effluent Appearance Clear;Yellow Balance This Exchange (mL) 1788 mL Peritoneal Dialysis Catheter Continuous cycling No placement date or time found. Placed by External Staff?: Other (Comment) Dialysis Type: Continuous cycling Status Deaccessed;Clamped Dressing Gauze Dressing Status Clean, dry, intact OR ART DIRECTOR * Pj Duckworth RN - 06/27/2022 8:21 PM CST Started CCPD. Target treatment time is 9 hours. OR ART DIRECTOR * Pj Duckworth RN - 06/27/2022 6:24 AM CST 06/27/22 0600 Peritoneal Dialysis Dialysis Type CCPD Peritoneal Dialysis Setup Completed by bulb brandercooky machine operator Status End Cycle Number 4 Machine Type [employer] Pro Machine # [id number] Initial Drain Volume (mL) 690 mL Last Fill Volume (mL) 785 mL Fill Volume In (mL) 19715 mL Effluent Volume Out (mL) 04598 ml Effluent Appearance Clear;Yellow Balance This Exchange (mL) 1944 mL Peritoneal Dialysis Catheter Continuous cycling No placement date or time found. Placed by External Staff?: Other (Comment) Dialysis Type: Continuous cycling Status Deaccessed;Clamped Dressing Gauze Dressing Status Clean, dry, intact OR ART DIRECTOR * Pj Duckworth RN - 06/26/2022 7:52 PM CST Started CCPD. Target treatment time is 9 hours. OR ART DIRECTOR * Pj Duckworth RN - 06/25/2022 8:41 PM CDT Started CCPD. Target treatment time is 9 hours. * Pj Duckworth RN - 06/25/2022 6:09 AM CDT 06/25/22 0600 Peritoneal Dialysis Dialysis Type CCPD Peritoneal Dialysis Setup Completed by bulb brandercooky machine operator Status End Cycle Number 4 Machine Type [employer] Pro Machine # [id number] Initial Drain Volume (mL) 423 mL Last Fill Volume (mL) 999 mL Fill Volume In (mL) 89631 mL Effluent Volume Out (mL) 52970 ml Effluent Appearance Clear;Yellow Balance This Exchange (mL) 2980 mL Peritoneal Dialysis Catheter Continuous cycling No placement date or time found. Placed by External Staff?: Other (Comment) Dialysis Type: Continuous cycling Status Deaccessed;Clamped Dressing Gauze Dressing Status Clean, dry, intact * Pj Duckworth RN - 06/24/2022 8:32 PM CDT Started CCPD. Target treatment time is 9 hours. * John Rizzo RN - 06/23/2022 6:28 AM CDT Therapy complete, pt disconnected from CCPD cycler per protocol, effluent clear yellow, no noted fibrin, mini cap connected to PD catheter. Patient is comfortable, has no question at this time. * Tequila Ingram RN - 06/21/2022 7:35 PM CDT 9 hour CCPD treatment started as ordered. PD catheter site is clear and free of drainage. PD site was cleansed and gentamicin cream applied at entrance. Covered with gauze dressing. Treatment setup aseptically per protocol. * Stephie Jo RN - 06/20/2022 6:37 PM CDT Spoke with primary ICU nurse at approx 1730, informed patient was taken off Nx stage due to tachycardia and ICU team does not want SLED restarted at this time. Dr. Nava made aware, this nurse informed by MD to hold off on dialysis. * Stephie Jo RN - 06/20/2022 4:08 PM CDT 10 hr SLED ordered, UF goal to be determined by ICU team Primary nurse aware, 300 BF, 3K/3CA Dialysate. Dressing clean, dry , intact. Lumens cleansed with CHG and allowed to dry. Hubs cleansed with CHG and allowed to dry. 3 ml blood drawn for waste. Lines flushed with 10 ml NS without complication.Bloodlines connected to Right tunneled line, SLED treatment initiated as ordered. Warmer on and noted in the 12 o'clock position. All dialysate bags activated and marked with expiration stickers. No questions from primary nurse or patient/family at this time. Contact number left at bedside. * Pj Duckworth RN - 06/20/2022 4:48 AM CDT Reset CVVHDF per protocol with initial fluid removal at 100 mL/h per ICU nurse. All pressures WNL. * Mell Daniel RN - 06/19/2022 7:03 PM CDT CVVHDF checked. Prismaflex #12 used. Warmer set at 40.5 using toney tubing through RIJ catheter. Allpressures within normal limits. UF rate at 150 ml/hr. 4K/2.5Ca dialysate fluid used. FORMING MACHINE UPKEEP MECHANIC HELPER has no questions or concerns at this time, contact number left at bedside. * Mell Daniel RN - 06/19/2022 10:01 AM CDT CVVHDF reset. Prismaflex #12 used. Warmer set at 40.5 using toney tubing through RIJ catheter. All pressures within normal limits. UF rate at 200 ml/hr. 4K/2.5Ca dialysate fluid used. FORMING MACHINE UPKEEP MECHANIC HELPER has no questions or concerns at this time, contact number left at bedside. * Tequila Ingram RN - 06/18/2022 10:38 PM CDT Reset CVVHDF d/t filter clotted resumed orders see CRRT flow sheet * Marianela Strong RN - 06/18/2022 3:21 PM CDT Order for CVVHDF verified. Prismaflex machine primed and set. Checked vitals signs, stable. Startedtreatment via right IJ catheter, triple lumen. Third lumen ongoing IV. Catheter just inserted today, with bleeding on the site. Disinfected lumen, scrubbed hub and allowed to dry prior to accessing. Both lumen with good blood flow and infusing well. Pressures within acceptable limits. Set UF to 50ml /hr with blood flow of 300ml. Used 4K/2.5Ca bath with dialysate/replacement flow of 1400ml as ordered. Connections checked and tightened for safety. Updated my number and informed ICU Nurse. * Lissy Zuleta RN - 06/18/2022 12:19 PM CDT PD terminated early, patient will be brought to IR for procedure. Cycle 5/6 completed, with 20 minutes remaining for the 5th cycle. Manual drain done. Disconnected patient from the PD cycler per protocol, covered PD catheter tip with betadine mini caps. Informed renal MD. * Linda Carbajal RN - 06/18/2022 1:52 AM CDT 06/18/22 0140 Peritoneal Dialysis Dialysis Type CCPD Peritoneal Dialysis Setup Completed by bulb brandercooky machine operator Status End Initial Drain Volume (mL) 429 mL Last Fill Volume (mL) 2496 mL Fill Volume In (mL) 4987 mL Effluent Volume Out (mL) 5155 ml Effluent Appearance Bambi;Clear Balance This Exchange (mL) 168 mL Peritoneal Dialysis Catheter Continuous cycling No placement date or time found. Placed by External Staff?: Other (Comment) Dialysis Type: Continuous cycling Status Deaccessed Dressing Gauze Dressing Status New;Clean, dry, intact Dressing Intervention Dressing changed;Site cleansed;Gentamicin applied Dressing Change Due 06/19/22 Site Assessment Clean and dry;[place] * Jaja Mojica RN - 06/17/2022 12:43 PM CDT CCPD initiated per protocol and per order. Aury FORMING MACHINE UPKEEP MECHANIC HELPER notified and contact phone number left atthe bedside. * Jaja Mojica RN - 06/17/2022 12:21 PM CDT Pt's CCPD tx ended per protocol. Last fill of 0mL, total UF of 1213 clear, yellow, non odorous effluent. Aury FORMING MACHINE UPKEEP MECHANIC HELPER notified. Setting up next CCPD ordered to start directly after this tx. Contactnumber left at bedside. * John Rizzo RN - 06/16/2022 11:21 PM CDT 12-hr CCPD setup aseptically as per orders entered earlier today. Total Volume is 7500 ml over 3 Cycles of 2500 ml each using 2.5% dextrose. Pt has NOT a Last Fill . CCPD then started as per pt request. * Jp Magallon RN - 06/15/2022 8:38 PM CDT PD Tx started using 2.5% Ca Low dianeal fluid last bag 1000cc 7.5% after soaking catheter cap and first 4 inches of catheter with Alkavis and 4x4s for >5 minutes while setting up machine and doingdressing change. Area of insertion of Catheter in abdomen is without redness or drainage. Skin cleaned with [place] Secura skin cleanser, dried, then a thin layer of gentamycin ointment applied to insertion site, with 2x2s and Tegaderm. Monitored for complications while first drain performed, without evidence at this time. * Tequila Ingram RN - 06/14/2022 8:24 PM CDT Reset cvvhdf Alonso Machine # 6 d/t cassette resumed orders BF 250 Replacement/Dialysate 1400/1400 UF at 100/hr Blood warmer at venous line temp 42.9 Pressure WNL. See CRRT flowsheet. * Liliana Cobb RN - 06/14/2022 7:45 AM CDT Checked CVVHDF on alonso flex machine #6, running without difficulty via left IJ. Blood flow and pressures WNL. Spoke to FORMING MACHINE UPKEEP MECHANIC HELPER Rachel, she has no questions or concerns at present time, no travel plans noted. Left a contact number for the ICU nurse to notify AD of any changes. Venous line placed in toney warmer, current warmer temperature 42.8 C. * Elly Shipman RN - 06/13/2022 11:02 AM CDT PD catheter flushed with 500 ml 1.5% Dianeal without difficulty and complications. 500 ml clear effluent obtained. Patient tolerated well. * Elly Shipman RN - 06/13/2022 8:05 AM CDT CVVHDF check..Dialysate and replacement fluids are both 4K, 2.5Ca, Toney warmer on venous line. Blood flow and pressures WNL.pulp grinder and blender has no questions or concerns at present time. * Marianela Strong RN - 06/12/2022 9:07 AM CDT Morning rounds done. Filter ongoing for 13 hours and 39 minutes. Prismaflex connected via left IJ catheter, triple lumen. Third lumen ongoing IV. Dressing peeling off, for change of dressing today, ICU aware. Both catheter lumen infusing well with BFR at 150. Pressures within acceptable limits. Connections and lines checked and tightened for safety. Checked machine input based on doctors order. Correct component of bag hanging on scale. Fluid warmer on and deaeration chamber adjusted. Updated my number and informed ICU Nurse Cheryl. * Liliana Cobb RN - 06/11/2022 7:30 PM CDT CVVHDF was reset with alonso flex machine #6 due to system clotting, now running without difficultyvia left IJ trialysis and started Heparin in the circuit @ 1000 units/hr flow. Blood flow and pressure WNL. Spoke to ICU nurse Margaret, she has no questions or concerns at present time, no travel plans noted, she was aware to check the aPTT 6 hours after initiation of treatment which is due @ 0130. Left a contact number for ICU nurse to notify AD of any changes. Venous line placed in toney warmer, current warmer temperature 42.9C. * Liliana Cobb RN - 06/11/2022 11:10 AM CDT CVVHDF was reset with alonso flex machine #6 due to system clotted and post Alteplase dwelling, nowrunning without difficulty via left IJ trialysis. Blood flow and pressure WNL. Spoke to ICU nurse Cheryl, she has no questions or concerns at present time, no travel plans noted. Left a contact number for ICU nurse to notify AD of any changes. Venous line placed in toney warmer, current warmer temperature 42.9C. * Lissy Zuleta RN - 06/10/2022 1:44 PM CDT 24 hr CVVHDF machine reset done due to procedure done off floor. Prismaflex # 6 in use. Left IJ catheter in use with clean and dry CHG dressing. Warmer set at 42.9. All pressures are within normal set limit. 4K/2.5Ca dialysate being used rates are 1400/1400. Bags are activated and expiration stickers attached. Scrubbed HD catheter with CHG and allowed to dry. Blue lumen has better blood return, lines were reversed. CVVHDF started. ICU nurse informed and left contact number on the board. * Elsie Patricia RN - 06/08/2022 9:55 AM CDT 24 hr CVVHDF check. Prismaflex # 2 in use. Warmer set at 42.9. All pressures are within normal set limit. 4K/2.5Ca dialysate being used rates are 1400/1400. ICU nurse Figueroa informed and left contact number on the board. * Figueroa Jack RN - 06/07/2022 7:32 PM CDT [place] [id number] at 1637 and all initial hookups made. VSS. Impella numbers as charted. Trialysis that was placed in CCL was noted to be 30 cn in length which was placed in his Left IJ. Plan was made to swap out for a 20 cm trialysis line. Swap was made. Blood cultures x 2 were sent with admission labs. At 1842 moderate oozing at new trialysis line noted. MD notified. Pressure held. Epi/lido injected subcutaneously around insertion site. Post-procedure VS as charted in flow sheets. * Sabrina Christian RN - 06/07/2022 7:12 PM CDT CVVHDF initiated using PrismaFlex machine # 6 , via Left trialysis catheter, both ports aspirate and flush well. All pressures are WDL, BFR is 300 .Dialysate and replacement fluid is 4K/2.5 Ca, all bags are activated with stickers present. UF is set at 0 ml/ hr. Heater is # 3 , set at 40.8 degrees,reading at 40.8 degrees with alexander cord on return line. FORMING MACHINE UPKEEP MECHANIC HELPER has no questions or concerns at this time. Patient has no travel plans out of unit today, and phone number has been placed on communication board in patient's room. * John Rizzo RN - 06/07/2022 6:59 AM CDT Therapy complete, pt disconnected from CCPD cycler per protocol, effluent clear yellow, no noted fibrin, mini cap connected to PD catheter. UF was 2513 ml.Patient is comfortable, has no question at this time. * John Rizzo RN - 06/06/2022 9:35 PM CDT 9-hr CCPD setup aseptically as per orders [place] [address] ml over 4Cycles of 2800 ml each using 4.25% mix of 2.5% dextrose. Pt has a Last Fill of 1000 ml using 7.5% icodextrin. CCPD then started as per pt request. * Nona Fernandez RN - 06/05/2022 3:51 PM CDT While in pt room pt reported chest pain that would not go resolve EKG and VS obtained. Pt on 3L satting in 60s. NRB placed pt only satting at low 80s. ACT called. Pt given lasix IV and nitro PO x2. Placed on BIPAP and transferred to 8310. Report given and belongs sent. * Marianela Strong RN - 06/05/2022 11:47 AM CDT CCPD completed. Effluent yellow/clear. Dressing clean and dry. * Tequila Ingram RN - 06/05/2022 2:12 AM CDT 9 hour CCPD treatment started as ordered. PD catheter site is clear and free of drainage. PD site was cleansed no gentamicin cream order jay reinier renal fellow Covered with gauze dressing. Treatment setup aseptically per protocol. documented in this encounter Miscellaneous Notes * Provider Query - Delmar Longo MD PhD - 06/29/2022 2:07 PM CST Clinical Indicators/Treatments: Admission Date: 06/04/2022 Discharge Date: 06/29/2022 H&P: 51 y.o. male with a history of CHF (EF 50% 2016), Afib (not on AC), HTN, CAD s/p stent 04/06 and 3 stent 12/07, T1DM (insulin pump at home), ESRD on PD, HLD, GERD, hyperparathyroidism, DDD, OA, gout, BEN on CPAP initially presented to [facility] for generalized weakness, n/v, diarrhea, and chest pain now being transferred for LHC/PCI 06/06... labs notable for Na 129, K 4.0, Cr 8.95, tbili 0.5, Alk phos 115, AST 53, ALT 37, NT-proBNP 15,490, Trop 4797, WBC 7.7, 06/04: Anion gap - 17 (H) 06/05: H&P - #T1DM A1c 8.1 06/03. On insulin pump at home 1.7 units per hour for 8 AM-8Pm, 5.7 units at night. Has been given 33 units of lantus qAM and SSI at OSH. -lantus 33 units of lantus qAM, SSI, consistent carb when eating -endocrine c/s 06/05: Endocrinology - - Patient's BS spiked this AM into 400s, likely because these were taken while PD was running; given 4u IV regular insulin which did not improve BS, recheck when PD was stopped 389, another 6u IV regular insulin given 06/08: [facility] - -C/f DKA given BG in 300s, AG 21, K 3.3, BHB 2.3, ABG with pCO2 27; Started on insulingtt, D5, and K repletion. Treated with insulin gtt, D5, and K repletion. Labs improved to BG 100s, AG 10, K 4.0, BHB 0.1, pCO2 37. -Insulin gtt d/c'd 06/08: Endocrinology - When he got transferred his initial labs showed elevated AG of 27, pco 2 27,ph 7.49, BHB 2.3. he was started on an insulin drip until his BHB and AG improved. - please start him on D10% 20 ml/hr as a source of calories until TF is started to prevent him from going to [id number]: [facility] - #DKA - resolved In CCU, patient with DKA DCS 06/29: Type 1 diabetes mellitus (HCC) Prior to admission, his A1c was well controlled on home insulin pump. The patient didn't bring the pump to the hospital, and while critically ill/on CRRT he was initiated on basal/bolus insulin regimen in conjunction with the endocrine service. He had both hy perglycemic and hypoglycemic episodes on this regimen 2/2 complicated regimen related to PD. Patient was resumed on home insulin pump on 06/27 with improved control. Specify if the diagnosis DKAhas been confirmed or ruled out after study: _X__ Diagnosis confirmed ___ Diagnosis ruled out ___ Other, specify below 2. If confirmed, please clarify the DKA present on admission status: ___Present on Admission ___Not present on admission _X__Unable to determine present on admission status Additional Provider Response: Use of terms such as likely, suspected, possible, or probable (associated with a specific diagnosisthat is being evaluated, monitored, or treated as if it exists) are acceptable and can be coded in the inpatient setting when documented at the time of discharge. This documentation will become part of the patient???s medical record. Sincerely, [facility] Information Management OR ART DIRECTOR * Consults, Subsequent - Dora Delarosa CHIEF AIRLINE RADIO OPERATOR - 06/29/2022 12:55 PM SENIOR ART DIRECTOR Endocrinology & Diabetes Progress Note Patient: Adelia Garvin Jr., 51 y.o. male (: 1970) Room: [place] [address] ( ) LOS: 25 Adelia Garvin Jr. is a 51 y.o. male with PMH significant for T1DM on insulin pump, atrial fibrillation, HTN, HLD, CAD s/p PCI, ESRD on PD, and hyperparathyroidism who presented to the hospital with weakness, N/V, diarrhea and chest pain. Hospital course complicated by respiratory failure requiring intubation, cardiogenic shock and agitation. The Endocrinology/Diabetes Service is providing diabetes/insulin pump management and discharge planning recommendations during this hospitalization. Interval Events & Subjective There were no acute events overnight. Mr. Garvin reports his appetite is OK today. My sugar has been higher since we treated the low yesterday. I think we need to readjust the pump. Denies nausea/vomiting/diarrhea, chest pain, shortness of breath, fever or chills today. Peritoneal dialysis continues during night. Voiding without difficulty; passing flatus, BM today. Diet: Adult Diet Restricted; 2 GM Sodium; Consistent Carbohydrate Over the previous 24 hours, blood glucose improving, but not at target with range of 68-299 mg/dl with 75 units TDD insulin coverage (57.7 units basal and 17.3 units bolus to cover 90 grams CHO. Target inpatient blood glucose is 100- 180 mg/dl. Fasting blood glucose this morning was 262 mg/dl. Pre-lunch blood glucose was 302 mg/dl. Recent Labs Lab Units 06/29/22 1151 06/29/22 0743 06/28/22200706/28/22 1533 06/28/22 1142 06/28/22 0953 06/28/22 0837 06/28/22 0820 06/28/22 0802 06/28/22 0741 POC GLUCOSE MONITOR mg/dL 302* 262* 260* 299* 281* 181 121 95 75 68* Interval Review of Systems Twelve point ROS reviewed and negative except as noted in HPI. All other systems negative. Vitals & Exam Temp: [36.8 ??C (98.2 ??F)] 36.8 ??C (98.2 ??F) Pulse: [70-77] 76 BP: (94-124)/(51-53) 94/53 Resp: [18] 18 SpO2: [99 %-100 %] 100 % FiO2 (%): [30 %] 30 % I/O this shift: In: 360 [P.O.:360] Out: - Physical Exam Gen : pleasant 51 year old male sitting quietly in chair in no acute distress, alert, appropriate, cooperative, appears stated age, well-developed, well-nourished HENT : normocephalic, atraumatic, moist mucus membranes Eyes : conjunctiva clear, anicteric, no proptosis/exophthalmos/lid lag Pulm : non-labored, supplemental oxygen Extr : atraumatic, no cyanosis/clubbing/edema Skin : turgor normal, no rashes/wounds/lesions, Dexcom CGM LLQ abdomen, insulin pump insertion siteLLQ Neuro : alert, speech fluent, comprehension intact, moving all extremities, IV access LUE/RUE, HD catheter right chest wall Psych : cooperative, appropriate affect & mood, good insight & judgment Data Medications, labs, imaging, and diagnostics independently reviewed in Epic and commented on below. Lab Results Component Value Date TSH 0.80 03/21/2017 Lab Results Component Value Date CHOL 149 06/04/2022 TRIG 183 (H) 06/21/2022 HDL 34 (L) 06/04/2022 LDLCALC 82 06/04/2022 Lab Results Component Value Date 25HYDROVITD 22.7 (L) 03/22/2017 Lab Results Component Value Date HGBA1C 7.8 (H) 06/04/2022 Assessment & Plan 51 y.o. male with PMH significant for T1DM on insulin pump, atrial fibrillation, HTN, HLD, CAD s/p PCI, ESRD on PD, and hyperparathyroidism who presented to the hospital with weakness, N/V, diarrhea and chest pain. Hospital course complicated by respiratory failure requiring intubation, cardiogenicshock and agitation. 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, with prison use of insulin, complicated by ESRD on PD, CAD s/p PCI, CHF - HbA1c 7.4% - Uses Omnipod and Dexcom G6 at home, not currently on this- doesn't have the supplies -On significantly higher basal rates on pump at night due to peritoneal dialysis -home settings: Basal rate 0330 >>1.7 0800 >> 0.8 2000 >> 5.8 ICR1:6.5 ISF1:25 [id number] TIA 4 Over the previous 24 hours, blood glucose improving, but not at target with range of 68-299 mg/dl with 75 units TDD insulin coverage (57.7 units basal and 17.3 units bolus to cover 90 grams CHO. Target inpatient blood glucose is 100- 180 mg/dl. Fasting blood glucose this morning was 262 mg/dl. Pre-lunch blood glucose was 302 mg/dl. Inpatient glycemic management complicated by variable oral intake, stress, impaired renal function and acute illness. As glycemia trended up overnight, we recommend increasing the basal insulin dose from 2662-7035 today. We will continue to intensely monitor blood glucose and titrate insulin as needed to optimize glycemic control to avoid hypoglycemic/hyperglycemic events. Recommendations for diabetes management were discussed with the primary team. Insulin pump and supplies at bedside. Mr. Garvin is alert and oriented x 3 and has the mental capacity and manual dexterity to self-administer his own insulin pump. We reviewed the need to completethe insulin pump bedside log as a stipulation to use the insulin pump as an inpatient. He agrees tocomplete the insulin pump bedside log as required. Insulin pump settings adjusted to reflect current insulin requirements during this admission. Recommendations: TIME BASAL RATE TOTAL BASAL DAILY DOSE: 60.6=>65.85 0330 1.0=>1.7 units/hour 0800 0.8 units/hour 1999 5.8 units/hour ICR: 1:6.5 SENSITIVITY: 1:25 IAT: 4 hours TARGET: 120 If pump fails, give lispro 4 units once and restart insulin pump. If pump supplies are not available: - Lantus 35 units qAM - Humalog 10 units with meals - Continue resistant correction scale TID/HS/0200 - NPH 45 units with start of peritoneal dialysis session - POC glucoses TID/HS/0200 Discharge recommendations: Continue Omnipod 5 insulin pump with Dexcom G6 CGM at home settings: TIME BASAL RATE TOTAL BASAL DAILY DOSE: 65.85 0330 1.7 units/hour 0800 0.8 units/hour 2000 5.8 units/hour ICR: 1:6.5 SENSITIVITY: 1:25 IAT: 4 hours TARGET: 120 If pump fails, give lispro 4 units once and restart insulin pump. If pump supplies are not available: - Lantus 35 units qAM - Humalog 10 units with meals - Continue resistant correction scale TID/HS/0200 - NPH 45 units with start of peritoneal dialysis session Labs/Frequency to be Monitored: continuous glucose monitoring HbA1c every 3 months or 6 months if appropriate, Urine microalbumin/creatinine test yearly, and Dilated eye exam yearly or sooner as indicated by your eye dropper assembler # ESRD on PD - CKD and ESRD are independent risk factors for hypoglycemia ## Discharge Planning - Follow-up with home green house manager -- Dora Delarosa NP Endocrinology, Metabolism, & Lipid Research Contact Info: New Consults: [phone]) General Endocrine (Non-Diabetes): [phone] (Check 'Treatment Team' assignment for Diabetes 1 vs 2 vs 3) Diabetes 1: Diabetes Fellow: [phone] Diabetes 2: Dora Delarosa CHIEF AIRLINE RADIO OPERATOR: [phone] Diabetes 3: See Treatment Team Provider (or call Dora Delarosa, above) Diabetes After-Hours & Weekends: Diabetes Fellow OR ART DIRECTOR * Plan of Care - Elsie Gonzalez RN - 06/29/2022 11:32 AM CST [facility] [id number] Post Acute Care Transfer Report SamdreAdelia Jr. , : 1970, Sex: M Adm: 06/04/2022, D/C: Post Acute Care Transfer Report Patient Demographics Address [address] [place] [address] (Home) *Preferred* E-mail Address [email or web address] PCP and Center Primary Care Provider Aditya Castro MD [address] [place] [address] Parent Location Code Status Information Code Status Full Code Physicians Chat With All Treatment Team Provider ED Prov Role Provider Team Specialty From To Frank Bowers MD -- Attending Provider -- Internal Medicine 06/28/22 0513 -- Champ Osborne MD PhD -- Surgeon -- Cardiology 06/06/22 0626 -- Allergies as of 06/29/2022 Reviewed by Carey Vallejo, RT on 06/21/2022 Noted Reaction Type Reactions Deletion Reason Allopurinol 07/31/2019 Allergy Other (See comments), Shortness of breath Shuts my kidneys down per patient. Shuts my kidneys down per patient. Chlorhexidine Gluconate 06/21/2022 Blisters With CHG bath Contrast Dye [iodinated Contrast Media] 07/10/2017 Rash Other 10/23/2019 Rash Rash Iodinated Diagnostic Agents Ticagrelor 05/04/2017 Rash Rash Chlorhexidine 06/21/2022 Allergy Flushing (skin) CHG bath soap, Patient skin peels all over and becomes tender Problem List Priority Class Noted - Resolved Last Modified Type 2 diabetes mellitus treated with insulin (CMS/HCC) (HCC) (Chronic) Chronic 03/25/2015 - Present 03/25/2015 by Yamilet Valerio PA Entered by Yamilet Valerio PA Overview Signed 11/25/2016 5:29 AM by Yamilet Valerio PA Insulin treated Type II diabetes mellitus Chronic kidney disease, stage III (moderate) (HCC) (Chronic) Chronic 03/25/2015 - Present 03/25/2015 byYamilet Valerio PA Entered by Yamilet Valerio PA Overview Signed 11/25/2016 5:29 AM by Yamilet Valerio PA Chronic kidney disease, stage 3 Benign essential hypertension (Chronic) Chronic 03/25/2015 - Present 03/25/2015 by Yamilet Valerio PA Entered by Yamilet Valerio PA Overview Signed 11/25/2016 5:29 AM by Yamilet Valerio PA Benign essential HTN Hyperlipidemia (Chronic) Chronic 03/25/2015 - Present 03/25/2015 by Yamilet Valerio PA Entered by Yamilet Valerio PA Overview Signed 11/25/2016 5:29 AM by Yamilet Valerio PA Hyperlipidemia 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[place] artery of [place] heart with stable angina pectoris (CMS/HCC) (HCC) 05/23/2017 - Present 06/22/2022 by Luiz Lewis DO Entered by Abelardo Petit MD History of coronary artery stent placement 05/23/2017 - Present 05/23/2017 by Abelardo Petit MD Entered by Abelardo Petit MD Hypertension (Chronic) Chronic 01/18/2013 - Present 11/22/2013 by Intf Conv, Tw Problems Entered by Intf Conv, Tw Problems Type 1 diabetes mellitus (HCC) Chronic 01/18/2013 - Present 06/29/2022 by Frank Bowers MD Entered by Intf Conv, Tw Problems All Assessment & Plan Notes DELETED: Snoring (Chronic) Chronic 11/22/2013 - Present 06/22/2022 by Luiz Lewis DO Entered by Intf Conv, Tw Problems Hypersomnia (Chronic) Chronic 11/22/2013 - Present 11/22/2013 by Intf Conv, Tw Problems Entered by Intf Conv, Tw Problems Chronic kidney disease (Chronic) Chronic 11/22/2013 - Present 11/22/2013 by Intf Conv, Tw Problems Entered by Intf Conv, Tw Problems Pain of finger (Chronic) Chronic 11/24/2014 - Present 11/24/2014 by Intf Conv, Tw Problems Entered by Intf Conv, Tw Problems Macular ischemia (Chronic) Chronic 03/17/2017 - Present 03/17/2017 by Zully Arriaga MD Entered by Zully Arriaga MD Combined forms of age-related cataract (Chronic) Chronic 03/17/2017 - Present 06/01/2017 by Zully Arriaga MD Entered by Zully Arriaga MD Proliferative diabetic retinopathy associated with type 2 diabetes mellitus (CMS/HCC) (HCC) (Chronic) Chronic 03/17/2017 - Present 06/01/2017 by Zully Arriaga MD Entered by Zully Arriaga MD Abnormal cardiovascular stress test 12/29/2020 - Present 12/29/2020 by Valerie Robbins Entered by Valerie Robbins Overview Signed 12/29/2020 3:35 PM by Valerie Robbins Added automatically from request for surgery [id number] DELETED: Angina pectoris (HCC) 06/04/2022 - Present 06/22/2022 by Luiz Lewis DO Entered by Russ Milner MD Acute hypoxemic respiratory failure (HCC) 06/09/2022 - Present 06/29/2022 by Frank Bowers MD Entered by Patricio Pearce MD Current Assessment & Plan 06/03/2022 Hospital Encounter Written 06/20/2022 5:55 PM by Sandrine Myers MD Mr. Garvin is a 51 y/o M with medical history most significant for CAD, DM1, ESRD on PD, initially presenting for complex PCI, found to have cholecystitis, now in CCU with cardiogenic shock. Pulmonary is consulted for hypoxemic respiratory failure. Problem List: - Acute hypoxemic respiratory failure, [...] --Continue to keep as dry as possible All Assessment & Plan Notes Hypotension 06/03/2022 - Present 06/22/2022 by Luiz Lewis DO Entered by Aj Poe MD Overview Signed 06/10/2022 7:33 AM by Aj Poe MD Added automatically from request for surgery [id number] Anemia 06/22/2022 - Present 06/29/2022 by Frank Bowers MD Entered by Luiz Lewis DO All Assessment & Plan Notes ESRD (end stage renal disease) (CMS/HCC) (HCC) 06/22/2022 - Present 06/29/2022 by Frank Bowers MD Entered by Luiz Lewis DO All Assessment & Plan Notes Acute on chronic HFrEF (heart failure with reduced ejection fraction) ([facility]) 06/22/2022 - Present 06/29/2022 by Frank Bowers MD Entered by Luiz Lewis DO All Assessment & Plan Notes Atrial fibrillation ([facility]) ([facility]) 06/22/2022 - Present 06/29/2022 by Frank Bowers MD Entered by Luiz Lewis DO All Assessment & Plan Notes Principal NSTEMI (non-ST elevated myocardial infarction) ([facility]) ([facility]) 06/22/2022 - Present 06/29/2022 by Frank Bowers MD Entered by Luiz Lewis DO All Assessment & Plan Notes Cardiogenic shock ([facility]) 06/22/2022 - Present 06/29/2022 by Frank Bowers MD Entered by Luiz Lewis DO All Assessment & Plan Notes Patient Infection Status Infection Onset Added Last Indicated Last Indicated By Review Planned Expiration Resolved Resolved By Specimen Information None active Resolved COVID: Suspected 06/15/22 06/15/22 06/15/22 Respiratory pathogen panel Nasopharyngeal (Ordered) 06/15/22 Rule-Out Test Resulted Nasopharyngeal COVID: Suspected 06/08/22 06/08/22 06/08/22 Respiratory pathogen panel Nasopharyngeal (Ordered) 06/08/22 Rule-Out Test Resulted Nasopharyngeal Primary Learner Learning Barriers Primary Learner Name: Adelia Garvin Jr Does the primary learner have any barriers to learning?: No Barriers Pain Assessment Flowsheet Row Most Recent Value Pain Assessment Pain Assessment No/denies pain Pain Score 0 - No pain Patient's Stated Pain Goal No pain Pain Orientation Generalized Response to Interventions Partial pain relief Advanced Directive Flowsheet Documentation Flowsheet Row Most Recent Value Have you reviewed your Advance Directive and is it valid for this stay? Not applicable ...filed at 06/04/2022 2300 Advance Directive Patient does not have advance directive, Patient would like information ...filed at 06/10/2022 1111 Advance Directive not in Chart -- [n/a] ...filed at 06/07/2022 1128 Type of Healthcare Directive -- [n/a] ...filed at 06/07/2022 1128 Information Provided on Healthcare Directives No ...filed at 06/04/2022 2300 Patient Language and Rastafarian Flowsheet Row Most Recent Value Patient's Preferred Language eng Cultural Requests During Hospitalization none Spiritual Requests During Hospitalization none Nutrition Assess Flowsheet Row Most Recent Value Feeding Level of Assistance Able to feed self ............filed at 06/28/2022 1300 Appetite Good ............filed at 06/28/2022 1300 Vitals (last day) Date/Time Temp Core (Body) Temperature Pulse Resp BP SpO2 Weight Who 06/29/2215 -- -- 71 -- -- -- -- JR 06/29/22 0743 36.8 ??C (98.2 ??F) -- 70 18 124/52 99 % -- RS 06/29/22 0632 -- -- -- -- -- -- 118.1 kg (260 lb 6.4 oz) LC 06/28/22 2317 37.2 ??C (99 ??F) -- 71 18 113/51 95 % -- LC 06/28/22 2010 37.2 ??C (99 ??F) -- 70 18 113/56 96 % -- LC 06/28/22 1500 37.2 ??C (99 ??F) -- 73 20 98/54 93 % -- VM 06/28/22 0823 36.4 ??C (97.5 ??F) -- 71 18 125/59 97 % -- TM 06/28/22 0600 36.7 ??C (98.1 ??F) -- 70 16 124/62 98 % 120.3 kg (265 lb 3.4 oz) SURINDER Intake/Output 06/26/22 07 - 06/27/22 0659 06/27/22 0700 - 06/28/22 0659 06/28/22 0700 - 06/29/22 0659 06/29/22 0700 - 06/30/22 0659 Total Total 0634-2226 1047-3844 1986-2743 Total 7079-4166 7896-9004 3627-0961 Total Intake (ml) 27108 24494 400 360 33568 41526 360 -- -- 360 Output (ml) 16775 94446 150 -- 18271 48798 -- -- -- -- Net (ml) -1709 -1301 255 360 -7987 -1177 360 -- -- 360 Last Weight -- 120.3 kg (265 lb 3.4 oz) -- -- 118.1 kg (260 lb 6.4 oz) -- -- -- -- -- Discharge Medications TAKE these medications acetaminophen 500 mg capsule 1,000 mg, oral, Every 6 hours PRN aspirin 81 mg enteric coated tablet 1 tablet, oral, Daily atorvastatin 80 mg tablet 80 mg, oral, Daily Commonly known as: LIPITOR BD Ultra-Fine Short Pen Needle 31 gauge x 5/16 needle U ONE PEN NEEDLE TO INJ INSULIN SC QID Generic drug: pen needle, diabetic calcitRIOL 0.25 mcg capsule 0.25 mcg, oral, Daily Commonly known as: ROCALTROL calcium acetate(phosphat bind) 667 mg capsule 667 mg, oral, 4 times daily (with meals and nightly), With meals and snack Commonly known as: PHOSLO cetirizine 10 mg tablet 10 mg, oral, Daily PRN Commonly known as: ZyrTEC cholecalciferol 2000 unit tablet 50,000 Units, oral, Weekly Commonly known as: VITAMIN D-3 clopidogreL 75 mg tablet TAKE 1 TABLET BY MOUTH DAILY Commonly known as: PLAVIX EZETIMIBE ORAL 10 mg, oral, Daily insulin lispro 100 unit/mL vial for injection THIS IS FOR THE INSULIN PUMP: Continue Omnipod 5 insulin pump with Dexcom G6 CGM at home settings: TIME BASAL RATE TOTAL BASAL DAILY DOSE: 65.85 0330 1.7 units/hour 0800 0.8 units/hour 2000 5.8 units/hour For: diabetes Commonly known as: HumaLOG, ADMELOG isosorbide mononitrate ER 30 mg 24 hr tablet TAKE 1 TABLET BY MOUTH EVERY DAY Commonly known as: IMDUR losartan 25 mg tablet 12.5 mg, oral, Daily Commonly known as: COZAAR Start taking on: June 30, 2022 metoprolol 100 mg tablet 100 mg, oral, Every 12 hours Commonly known as: LOPRESSOR omeprazole 20 mg capsule 20 mg, oral, Daily Commonly known as: PriLOSEC acetaminophen (TYLENOL) tablet 1,000 mg [[id number]] Ordering Provider: Gu, Luiz Bohao, DO Status: Dispensed Ordered On: 06/22/221923 Start: 06/22/221929 Ordered Dose (Remaining/Total): 1,000 mg (--/--) Route: oral Frequency: Every 6 hours PRN Ordered Rate/Order Duration: -- / -- Timestamps Action Dose Route Other Information Performed 06/27/221746 Documented: 06/27/221746 Given 1,000 mg oral Performed by: Manda Lake RN Scanned Package: [id number], [id number] acetaminophen (TYLENOL) tablet 325 mg [[id number]] Ordering Provider: Meme Castro MD Status: Completed (Past End Date/Time) Ordered On: 06/15/22 1014 Starts/Ends: 06/15/221044 - 06/15/22944 Ordered Dose (Remaining/Total): 325 mg (0/1) Route: oral Frequency: Once Ordered Rate/Order Duration: -- / -- Timestamps Action Dose Route Other Information Performed 06/15/22944 Documented: 06/15/221103 Given 325 mg oral Performed by: Ravi Hollingsworth RN Scanned Package: [address]-3 albuterol HFA (PROVENTIL HFA,VENTOLIN HFA,PROAIR HFA) 90 mcg/actuation inhaler 2 puff [[id number]] Ordering Provider: Fernando Torres MD Status: Dispensed Ordered On: 06/05/22244 Start: 06/05/22228 Ordered Dose (Remaining/Total): 2 puff (--/--) Route: inhalation Frequency: Every 6 hours PRN (socially responsible investment adviser) Ordered Rate/Order Duration: -- / -- Timestamps Action Dose Route Other Information Performed 06/15/22249 Documented: 06/15/22252 Given 2 puff inhalation Performed by: Juanito Hernandez RRT Scanned Package: 4314-8986-64 alteplase (CATHFLO) 1 mg/mL syringe (premix) 1 mg [[id number]] Ordering Provider: Lavern Morrison MD Status: Completed (Past End Date/Time) Ordered On: 10/0 Starts/Ends: 06/09/22 0445 - 06/09/22447 Ordered Dose (Remaining/Total): 1 mg (0/1) Route: intra-catheter Frequency: Once Ordered Rate/Order Duration: -- / -- Admin Instructions: 60 to 120 minute dwell time. Refrigerate Timestamps Action Dose Route Other Information Performed 06/09/22447 Documented: 06/09/22447 Given 1 mg intra-catheter Performed by: Rachel Masters RN Scanned Package: 2860-8869-24 alteplase (CATHFLO) 1 mg/mL syringe (premix) 1 mg [[id number]] Ordering Provider: Robert Henry MD Status: Completed (Past End Date/Time) Ordered On: 06/11/22755 Starts/Ends: 06/11/22829 - 06/11/22920 Ordered Dose (Remaining/Total): 1 mg (0/1) Route: intra-catheter Frequency: Once Ordered Rate/Order Duration: -- / -- Admin Instructions: 60 to 120 minute dwell time. Refrigerate Timestamps Action Dose Route Other Information Performed 06/11/22920 Documented: 06/11/22924 Given 1 mg intra-catheter Performed by: Manda Pickett RN Scanned Package: 1861-2990-17 alteplase (CATHFLO) 1 mg/mL syringe (premix) 2 mg [[id number]] Ordering Provider: Robert Henry MD Status: Completed (Past End Date/Time) Ordered On: 06/11/221655 Starts/Ends: 06/11/221729 - 06/11/221809 Ordered Dose (Remaining/Total): 2 mg (0/1) Route: intra-catheter Frequency: Once Ordered Rate/Order Duration: -- / -- Admin Instructions: 60 to 120 minute dwell time. Refrigerate Timestamps Action Dose Route Other Information Performed 06/11/221809 Documented: 06/11/221809 Given 2 mg intra-catheter Performed by: Manda Pickett RN Scanned Package: 9466-9717-16, 6593-0486-70 alteplase (CATHFLO) 1 mg/mL syringe (premix) 2 mg [[id number]] Ordering Provider: Robert Henry MD Status: Completed (Past End Date/Time) Ordered On: 06/11/221655 Starts/Ends: 06/11/221729 - 06/11/221810 Ordered Dose (Remaining/Total): 2 mg (0/1) Route: intra-catheter Frequency: Once Ordered Rate/Order Duration: -- / -- Admin Instructions: 60 to 120 minute dwell time. Refrigerate Timestamps Action Dose Route Other Information Performed 06/11/221810 Documented: 06/11/221810 Given 2 mg intra-catheter Performed by: Manda Pickett RN Scanned Package: 4271-2824-93, 0141-3852-17 amiodarone (NEXTERONE) 150 mg/100 mL (1.5 mg/mL) in dextrose (premix) 150 mg [[id number]] Ordering Provider: Jeffrey Green MD Status: Completed (Past End Date/Time) Ordered On: 06/18/221835 Starts/Ends: 06/18/221914 - 06/18/221851 Ordered Dose (Remaining/Total): 150 mg (0/1) Route: intravenous Frequency: Once Ordered Rate/Order Duration: 600 mL/hr / 10 Minutes Admin Instructions: Use filter 0.22 micron or less Timestamps Action Dose / Rate / Duration Route Other Information Performed 06/18/221841 Documented: 06/18/221842 New Bag 150 mg 600 mL/hr 10 Minutes intravenous Performed by: Aleah Pavon RN amiodarone (NEXTERONE) 150 mg/100 mL (1.5 mg/mL) in dextrose (premix) 150 mg [[id number]] Ordering Provider: Lavern Morrison MD Status: Completed (Past End Date/Time) Ordered On: 06/19/22133 Starts/Ends: 06/19/22214 - 06/19/22235 Ordered Dose (Remaining/Total): 150 mg (0/1) Route: intravenous Frequency: Once Ordered Rate/Order Duration: 600 mL/hr / 10 Minutes Admin Instructions: Use filter 0.22 micron or less Timestamps Action Dose / Rate / Duration Route Other Information Performed 06/19/22225 Documented: 06/19/22225 New Bag 150 mg 600 mL/hr 10 Minutes intravenous Performed by: Carlos Esparza RN Scanned Package: 64341-693-89 amiodarone (NEXTERONE) 150 mg/100 mL (1.5 mg/mL) in dextrose (premix) 150 mg [[id number]] Ordering Provider: Lavern Morrison MD Status: Completed (Past End Date/Time) Ordered On: 06/19/222150 Starts/Ends: 06/19/222229 - 06/19/222236 Ordered Dose (Remaining/Total): 150 mg (0/1) Route: intravenous Frequency: Once Ordered Rate/Order Duration: 600 mL/hr / 10 Minutes Admin Instructions: Use filter 0.22 micron or less Timestamps Action Dose / Rate / Duration Route Other Information Performed 06/19/222226 Documented: 06/19/222226 New Bag 150 mg 600 mL/hr 10 Minutes intravenous Performed by: Carlos Esparza RN Scanned Package: 22639-768-75 amiodarone (NEXTERONE) 150 mg/100 mL (1.5 mg/mL) in dextrose (premix) 150 mg [[id number]] Ordering Provider: Tyra De La Torre MD Status: Completed (Past End Date/Time) Ordered On: 06/20/221629 Starts/Ends: 06/20/221699 - 06/20/221746 Ordered Dose (Remaining/Total): 150 mg (0/1) Route: intravenous Frequency: Once Ordered Rate/Order Duration: 600 mL/hr / 10 Minutes Admin Instructions: Use filter 0.22 micron or less Timestamps Action Dose / Rate / Duration Route Other Information Performed 06/20/221736 Documented: 06/20/221736 New Bag 150 mg 600 mL/hr 10 Minutes intravenous Performed by: Margaret Escobar RN aspirin chewable tablet 81 mg [[id number]] Ordering Provider: Marcelina Pickard NP Status: Completed (Past End Date/Time) Ordered On: 06/07/22 1112 Starts/Ends: 06/07/22 1145 - 06/07/221136 Ordered Dose (Remaining/Total): 81 mg (0/1) Route: oral Frequency: Once Ordered Rate/Order Duration: -- / -- Timestamps Action Dose Route Other Information Performed 06/07/221136 Documented: 06/07/221137 Given 81 mg oral Performed by: Carolyn Troncoso RN Scanned Package: 4310-2075-55 aspirin chewable tablet 81 mg [[id number]] Ordering Provider: Luiz Lewis DO Status: Dispensed Ordered On: 06/22/221923 Start: 06/23/22899 Ordered Dose (Remaining/Total): 81 mg (--/--) Route: oral Frequency: Daily Ordered Rate/Order Duration: -- / -- Timestamps Action Dose Route Other Information Performed 06/29/22822 Documented: 06/29/22823 Given 81 mg oral Performed by: Manda Lake RN Scanned Package: 8070-3092-60 atorvastatin (LIPITOR) tablet 80 mg [[id number]] Ordering Provider: Luiz Lewis DO Status: Dispensed Ordered On: 06/22/221923 Start: 06/23/22899 Ordered Dose (Remaining/Total): 80 mg (--/--) Route: oral Frequency: Daily Ordered Rate/Order Duration: -- / -- Timestamps Action Dose Route Other Information Performed 06/29/22822 Documented: 06/29/22823 Given 80 mg oral Performed by: Manda Lake RN Scanned Package: [address]-7 azithromycin (ZITHROMAX) tablet 500 mg [[id number]] Ordering Provider: Russ Milner MD Status: Completed (Past End Date/Time) Ordered On: 06/05/22 0245 Starts/Ends: 06/05/22 09 - 06/05/22 0849 Ordered Dose (Remaining/Total): 500 mg (0/1) Route: oral Frequency: Once Ordered Rate/Order Duration: -- / -- Timestamps Action Dose Route Other Information Performed 06/05/2249 Documented: 06/05/22 0850 Given 500 mg oral Performed by: Nona Fernandez RN Scanned Package: [address]-2, [address]-9 barium sulfate (VARIBAR NECTAR) 40 % (w/v) nectar [[id number]] Ordering Provider: Tyra De La Torre MD Status: Completed (Past End Date/Time) Ordered On: 06/21/221416 Starts/Ends: 06/21/22 141 - 06/21/22 141 Ordered Dose (Remaining/Total): -- (0/1) Route: oral Frequency: Once in imaging Ordered Rate/Order Duration: -- / -- Admin Instructions: Shake well Timestamps Action Dose Route Other Information Performed 06/21/221413 Documented: 06/21/221427 Contrast Given 20 mL oral Performed by: Carey Vallejo RT barium sulfate (VARIBAR PUDDING) 40 % (w/v), 30% (w/w) pudding [[id number]] Ordering Provider: Tyra De La Torre MD Status: Completed (Past End Date/Time) Ordered On: 06/21/221416 Starts/Ends: 06/21/221408 - 06/21/221408 Ordered Dose (Remaining/Total): -- (0/1) Route: oral Frequency: Once in imaging Ordered Rate/Order Duration: -- / -- Timestamps Action Dose Route Other Information Performed 06/21/221408 Documented: 06/21/221427 Contrast Given 10 mL oral Performed by: Carey Vallejo RT barium sulfate (VARIBAR THIN LIQUID) 81 % (w/w) thin liquid [[id number]] Ordering Provider: Tyra De La Torre MD Status: Completed (Past End Date/Time) Ordered On: 06/21/221416 Starts/Ends: 06/21/22 140 - 06/21/22 140 Ordered Dose (Remaining/Total): -- (0/1) Route: oral Frequency: Once in imaging Ordered Rate/Order Duration: -- / -- Timestamps Action Dose Route Other Information Performed 06/21/221406 Documented: 06/21/221426 Contrast Given 60 mL oral Performed by: Carey Vallejo RT barium sulfate (VARIBAR) 40 % (w/v) 29% (w/w) suspension 250 mL [[id number]] Ordering Provider: Tyra De La Torre MD Status: Completed (Past End Date/Time) Ordered On: 06/21/221416 Starts/Ends: 06/21/221416 - 06/21/221416 Ordered Dose (Remaining/Total): 250 mL (0/1) Route: oral Frequency: Once in imaging Ordered Rate/Order Duration: -- / -- Admin Instructions: Shake well Timestamps Action Dose Route Other Information Performed 06/21/221416 Documented: 06/21/221428 Contrast Given 250 mL oral Performed by: Carey Vallejo, RT Comments: 15 ml given calcitRIOL (ROCALTROL) capsule 0.25 mcg [[id number]] Ordering Provider: Tyra De La Torre MD Status: Dispensed Ordered On: 06/22/22921 Start: 06/22/22 1000 Ordered Dose (Remaining/Total): 0.25 mcg (--/--) Route: oral Frequency: Daily Ordered Rate/Order Duration: -- / -- Timestamps Action Dose Route Other Information Performed 06/29/22822 Documented: 06/29/22823 Given 0.25 mcg oral Performed by: Manda Lake RN Scanned Package: 86843-292-86 calcium acetate(phosphat bind) (PHOSLO) capsule 667 mg [[id number]] Ordering Provider: Fernando Torres MD Status: Dispensed Ordered On: 06/05/22 0245 Start: 06/05/22 08 Ordered Dose (Remaining/Total): 667 mg (--/--) Route: oral Frequency: 4 times daily Ordered Rate/Order Duration: -- / -- Admin Instructions: Take with food Timestamps Action Dose Route Other Information Performed 06/29/22822 Documented: 06/29/22823 Given 667 mg oral Performed by: Manda Lake RN Scanned Package: 31342-112-48 calcium carbonate (TUMS) chewable tablet 500 mg [[id number]] Ordering Provider: Earl Samuels MD Status: Completed (Past End Date/Time) Ordered On: 06/24/222111 Starts/Ends: 06/24/222144 - 06/24/222137 Ordered Dose (Remaining/Total): 200 mg of elemental calcium (0/1) Route: oral Frequency: Once Ordered Rate/Order Duration: -- / -- Timestamps Action Dose Route Other Information Performed 06/24/222137 Documented: 06/24/222137 Given 500 mg oral Performed by: Sasha Subramanian RN Scanned Package: 2344-2402-89 clopidogreL (PLAVIX) tablet 600 mg [[id number]] Ordering Provider: Finn Dupont MD Status: Completed (Past End Date/Time) Ordered On: 06/07/22806 Starts/Ends: 06/07/22844 - 06/07/22956 Ordered Dose (Remaining/Total): 600 mg (0/1) Route: oral Frequency: Once Ordered Rate/Order Duration: -- / -- Timestamps Action Dose Route Other Information Performed 06/07/22956 Documented: 06/07/22957 Given 600 mg oral Performed by: Caitlyn Guzman RN Scanned Package: 02924-066-54, 01520-856-36 clopidogreL (PLAVIX) tablet 75 mg [[id number]] Ordering Provider: Luiz Lewis DO Status: Dispensed Ordered On: 06/22/221923 Start: 06/23/22899 Ordered Dose (Remaining/Total): 75 mg (--/--) Route: oral Frequency: Daily Ordered Rate/Order Duration: -- / -- Timestamps Action Dose Route Other Information Performed 06/29/22822 Documented: 06/29/22823 Given 75 mg oral Performed by: Manda Lake RN Scanned Package: 6997-8332-15 Dianeal low calcium-dextrose 1.5 % 2,000 mL dialysis solution [[id number]] Ordering Provider: James Horvath MD Status: Dispensed (Past End Date/Time) Ordered On: 06/13/22 0723 Starts/Ends: 06/13/22 0800 - 06/14/22 1046 Ordered Dose (Remaining/Total): -- (--/--) Route: intraperitoneal Frequency: Continuous Ordered Rate/Order Duration: -- / -- Timestamps Action Rate Route Other Information Performed 06/13/221046 Documented: 06/13/221046 New Bag 500 mL/hr intraperitoneal Performed by: Elly Shipman RN Dianeal low calcium-dextrose 2.5 % 2,000 mL dialysis solution [[id number]] Ordering Provider: Tom Mendez MD Status: Dispensed (Past End Date/Time) Ordered On: 06/26/22 1309 Starts/Ends: 06/26/221344 - 06/27/221936 Ordered Dose (Remaining/Total): -- (--/--) Route: intraperitoneal Frequency: Continuous Ordered Rate/Order Duration: -- / -- Question Answer Comment CCPD bag number: 3 -- Timestamps Action Dose / Rate / Duration Route Other Information Performed 06/26/221937 Documented: 06/26/221937 New Bag -- intraperitoneal Performed by: Pj Duckworth RN Dianeal low calcium-dextrose 2.5 % 5,000 mL dialysis solution [[id number]] Ordering Provider: Yovanny Curtis MD Status: Dispensed (Past End Date/Time) Ordered On: 06/16/221939 Starts/Ends: 06/16/222014 - 06/17/222310 Ordered Dose (Remaining/Total): -- (--/--) Route: intraperitoneal Frequency: Continuous Ordered Rate/Order Duration: -- / -- Question Answer Comment CCPD bag number: 1 -- Timestamps Action Dose / Rate / Duration Route Other Information Performed 06/16/222311 Documented: 06/16/222311 New Bag -- intraperitoneal Performed by: John Rizzo RN Dianeal low calcium-dextrose 2.5 % 5,000 mL dialysis solution [[id number]] Ordering Provider: Yovanny Curtis MD Status: Dispensed (Past End Date/Time) Ordered On: 06/16/221939 Starts/Ends: 06/16/222014 - 06/17/222310 Ordered Dose (Remaining/Total): -- (--/--) Route: intraperitoneal Frequency: Continuous Ordered Rate/Order Duration: -- / -- Question Answer Comment CCPD bag number: 2 -- Timestamps Action Dose / Rate / Duration Route Other Information Performed 06/16/222311 Documented: 06/16/222311 New Bag -- intraperitoneal Performed by: John Rizzo RN Dianeal low calcium-dextrose 2.5 % 5,000 mL dialysis solution [[id number]] Ordering Provider: Tom Mendez MD Status: Dispensed (Past End Date/Time) Ordered On: 06/26/22 130 Starts/Ends: 06/26/221344 - 06/27/221935 Ordered Dose (Remaining/Total): -- (--/--) Route: intraperitoneal Frequency: Continuous Ordered Rate/Order Duration: -- / -- Question Answer Comment CCPD bag number: 1 -- Timestamps Action Dose / Rate / Duration Route Other Information Performed 06/26/221936 Documented: 06/26/221937 New Bag -- intraperitoneal Performed by: Pj Duckworth RN Dianeal low calcium-dextrose 2.5 % 5,000 mL dialysis solution [[id number]] Ordering Provider: Tom Mendez MD Status: Dispensed (Past End Date/Time) Ordered On: 06/26/221308 Starts/Ends: 06/26/221344 - 06/27/221935 Ordered Dose (Remaining/Total): -- (--/--) Route: intraperitoneal Frequency: Continuous Ordered Rate/Order Duration: -- / -- Question Answer Comment CCPD bag number: 2 -- Timestamps Action Dose / Rate / Duration Route Other Information Performed 06/26/221936 Documented: 06/26/221936 New Bag -- intraperitoneal Performed by: jP Duckworth RN diphenhydrAMINE (BENADRYL) capsule 50 mg [[id number]] Ordering Provider: Veronica Tavares MD Status: Completed (Past End Date/Time) Ordered On: 06/06/22 1344 Starts/Ends: 06/07/22 1200 - 06/07/22 1018 Ordered Dose (Remaining/Total): 50 mg (0/1) Route: oral Frequency: Once Ordered Rate/Order Duration: -- / -- Admin Instructions: Administer dose 1 hour prior to contrast media injection. Note to pharmacy: Fordoses of 1/2 tab, ensure tablets are dispensed or have order changed to liquid formulation Timestamps Action Dose Route Other Information Performed 06/07/22 1018 Documented: 06/07/22 1019 Given 50 mg oral Performed by: Caitlyn Guzman RN Comments: lab technician premed Scanned Package: 3836-9044-97 Extraneal 7.5% ULTRABAG 2,000 mL dialysis solution [[id number]] Ordering Provider: Tom Mendez MD Status: Dispensed (Past End Date/Time) Ordered On: 06/26/22 1309 Starts/Ends: 06/26/22 1345 - 06/27/221936 Ordered Dose (Remaining/Total): -- (--/--) Route: intraperitoneal Frequency: Continuous Ordered Rate/Order Duration: -- / -- Timestamps Action Dose / Rate / Duration Route Other Information Performed 06/26/221937 Documented: 06/26/221937 New Bag -- intraperitoneal Performed by: Pj Duckworth RN ezetimibe (ZETIA) tablet 10 mg [[id number]] Ordering Provider: Luiz Lewis DO Status: Dispensed Ordered On: 06/22/221923 Start: 06/23/22 09 Ordered Dose (Remaining/Total): 10 mg (--/--) Route: oral Frequency: Daily Ordered Rate/Order Duration: -- / -- Timestamps Action Dose Route Other Information Performed 06/29/22822 Documented: 06/29/22 0824 Given 10 mg oral Performed by: Manda Lake RN Scanned Package: 21822-687-39 furosemide (LASIX) 10 mg/mL injection 120 mg [[id number]] Ordering Provider: Dimitrios Hensley MD Status: Completed (Past End Date/Time) Ordered On: 06/05/221517 Starts/Ends: 06/05/22 1600 - 06/05/221517 Ordered Dose (Remaining/Total): 120 mg (0/1) Route: intravenous Frequency: Once Ordered Rate/Order Duration: -- / -- Admin Instructions: For IV push: administer doses < 160 mg at a rate of 20 -40 mg/min. Doses >/= 160 mg should be administered no faster than 4 mg/min. Room temperature only Timestamps Action Dose Route Other Information Performed 06/05/22 1518 Documented: 06/05/22 1518 Given 120 mg intravenous Performed by: Nona Fernandez RN Scanned Package: 8891-4899-63, 5827-2039-64 gentamicin (GARAMYCIN) 0.1 % cream [[id number]] Ordering Provider: James Horvath MD Status: Dispensed Ordered On: 06/28/22 1211 Start: 06/28/22 1245 Ordered Dose (Remaining/Total): -- (--/--) Route: topical Frequency: Daily Ordered Rate/Order Duration: -- / -- Admin Instructions: Apply to peritoneal dialysis catheter exit site daily during dressing change. DO NOT SUBSTITUTE WITH OINTMENT. Question Answer Comment Apply to affected area:: dialysis access site -- Timestamps Action Dose / Rate / Duration Route Other Information Performed 06/28/222004 Documented: 06/28/222005 Given -- topical Performed by: Tequila Ingram RN Scanned Package: 06139-412-10 heparin 1,000 unit/mL injection 1.5-6.9 mL [[id number]] Ordering Provider: James Horvath MD Status: Completed (Past End Date/Time) Ordered On: 06/20/22 1224 Starts/Ends: 06/20/22 1300 - 06/20/22 1233 Ordered Dose (Remaining/Total): 1.5-6.9 mL (0/1) Route: intra-catheter Frequency: Once Ordered Rate/Order Duration: -- / -- Admin Instructions: Indwell volume of catheter lumens post treatment. Give volume based upon radioactivity technician's recommendation (usual range 1.2 - 3 mL) in each lumen. Timestamps Action Dose Route Other Information Performed 06/20/22 1233 Documented: 06/20/22 1233 Given 3 mL intra-catheter Performed by: Margaret Escobar RN Scanned Package: 8122-3998-49 heparin 1,000 unit/mL injection 4,000 Units [[id number]] Ordering Provider: Russ Milner MD Status: Completed (Past End Date/Time) Ordered On: 06/05/22 0245 Starts/Ends: 06/05/22 0330 - 06/05/22423 Ordered Dose (Remaining/Total): 4,000 Units (0/1) Route: intravenous Frequency: Once Ordered Rate/Order Duration: -- / -- Admin Instructions: Initial bolus prior to starting heparin infusion. Do not adjust initial bolus based on patient PTT. Timestamps Action Dose Route Other Information Performed 06/05/22423 Documented: 06/05/22423 Given 4,000 Units intravenous Performed by: Kristie Banegas RN Dual Signoff by: Ayleen Doan RN Scanned Package: 4096-9960-80 heparin 5,000 unit/mL injection 5,000 Units [[id number]] Ordering Provider: Robert Henry MD Status: Dispensed Ordered On: 06/22/22 1107 Start: 06/22/22 1400 Ordered Dose (Remaining/Total): 5,000 Units (--/--) Route: subcutaneous Frequency: Every 8 hours scheduled Ordered Rate/Order Duration: -- / -- Timestamps Action Dose Route / Site Other Information Performed 06/29/22500 Documented: 06/29/22500 Given 5,000 Units subcutaneous Left Lower Abdomen Performed by: Radha Paul RN Scanned Package: 99677-944-48 heparin in 0.9% sodium chloride 25,000 unit/250 mL infusion (premix) [[id number]] Ordering Provider: Champ Osborne MD PhD Status: Completed (Past End Date/Time) Ordered On: 06/07/22 143 Frequency: Continuous PRN Timestamps Action Dose / Rate Route / Site / Linked Line Other Information Performed 06/07/221429 Documented: 06/07/22 143 New Bag 14 Units/kg/hr 19.88 mL/hr -- Performed by: Stephanie Bacon RN influenza quadrivalent 7222-9488 (FLULAVAL,FLUARIX,FLUZONE) 60 mcg (15 mcg x 4)/0.5 mL vaccine (STANDARD age 6 months and up) 0.5 mL [[id number]] Ordering Provider: Champ Osborne MD PhD Status: Completed (Past End Date/Time) Ordered On: 06/04/222316 Starts/Ends: 06/04/222316 - 06/04/222335 Ordered Dose (Remaining/Total): 0.5 mL (0/1) Route: intramuscular Frequency: During hospitalization Ordered Rate/Order Duration: -- / -- Timestamps Action Dose Route / Site Other Information Performed 06/04/222335 Documented: 06/04/222337 Given 0.5 mL intramuscular Right Deltoid Performed by: Kristie Banegas, LUAN Scanned Package: 67584-571-12 insulin lispro (HumaLOG, ADMELOG) 100 unit/mL injection 5 Units [[id number]] Ordering Provider: Lavern Morrison MD Status: Completed (Past End Date/Time) Ordered On: 06/22/22604 Starts/Ends: 06/22/22604 - 06/22/22621 Ordered Dose (Remaining/Total): 5 Units (0/1) Route: subcutaneous Frequency: Once Ordered Rate/Order Duration: -- / -- Timestamps Action Dose Route / Site Other Information Performed 06/22/22621 Documented: 06/22/22621 Given 5 Units subcutaneous Left Lower Abdomen Performed by: Annmarie Ayala RN Scanned Package: 4271-9401-16 insulin lispro (HumaLOG, ADMELOG) 100 unit/mL injection 5 Units [[id number]] Ordering Provider: Indiana Irwin III, MD Status: Completed (Past End Date/Time) Ordered On: 06/24/22140 Starts/Ends: 06/24/22214 - 06/24/22156 Ordered Dose (Remaining/Total): 5 Units (0/1) Route: subcutaneous Frequency: Once Ordered Rate/Order Duration: -- / -- Timestamps Action Dose Route / Site Other Information Performed 06/24/22156 Documented: 06/24/22157 Given 5 Units subcutaneous Right Upper Arm Performed by: Mell Wild RN Scanned Package: 7896-5092-89 insulin lispro (HumaLOG, ADMELOG) 100 unit/mL injection 2 Units [[id number]] Ordering Provider: Carey East MD Status: Completed (Past End Date/Time) Ordered On: 06/26/22912 Starts/Ends: 06/26/22944 - 06/26/22914 Ordered Dose (Remaining/Total): 2 Units (0/1) Route: subcutaneous Frequency: Once Ordered Rate/Order Duration: -- / -- Admin Instructions: 2 additional units for total a of 20 units this AM. Timestamps Action Dose Route / Site Other Information Performed 06/26/22914 Documented: 06/26/22914 Given 2 Units subcutaneous Right Upper Arm Performed by: Adelita Self RN Scanned Package: 2148-4521-40 insulin regular (HumuLIN R, NovoLIN R) 100 unit/mL injection 4 Units [[id number]] Ordering Provider: Payam Connor MD Status: Completed (Past End Date/Time) Ordered On: 06/05/22 1013 Starts/Ends: 06/05/22 1045 - 06/05/22 103 Ordered Dose (Remaining/Total): 4 Units (0/1) Route: intravenous Frequency: Once Ordered Rate/Order Duration: -- / -- Timestamps Action Dose Route Other Information Performed 06/05/221031 Documented: 06/05/22 103 Given 4 Units intravenous Performed by: Nona Fernandez RN Dual Signoff by: Milagros Hinojosa RN Scanned Package: 6746-4085-17 insulin regular (HumuLIN R, NovoLIN R) 100 unit/mL injection 6 Units [[id number]] Ordering Provider: Toyin Alberto MD Status: Completed (Past End Date/Time) Ordered On: 06/05/221429 Starts/Ends: 06/05/22 1515 - 06/05/22 143 Ordered Dose (Remaining/Total): 6 Units (0/1) Route: intravenous Frequency: Once Ordered Rate/Order Duration: -- / -- Timestamps Action Dose Route Other Information Performed 06/05/221433 Documented: 06/05/221433 Given 6 Units intravenous Performed by: Nona Fernandez RN Dual Signoff by: Jacob uLna RN Scanned Package: 2490-4003-56 insulin regular (HumuLIN R, NovoLIN R) 100 unit/mL injection 5 Units [[id number]] Ordering Provider: Jeffrey Green MD Status: Completed (Past End Date/Time) Ordered On: 06/07/221746 Starts/Ends: 06/07/221829 - 06/07/221756 Ordered Dose (Remaining/Total): 5 Units (0/1) Route: intravenous Frequency: Once Ordered Rate/Order Duration: -- / -- Timestamps Action Dose Route Other Information Performed 06/07/221756 Documented: 06/07/221801 Given 5 Units intravenous Performed by: Figueroa Jack RN Dual Signoff by: Ravi Hollingsworth RN Scanned Package: 7410-3126-43 insulin regular (HumuLIN R, NovoLIN R) 100 unit/mL injection 7 Units [[id number]] Ordering Provider: Meme Castro MD Status: Completed (Past End Date/Time) Ordered On: 06/07/222001 Starts/Ends: 06/07/222044 - 06/07/222013 Ordered Dose (Remaining/Total): 7 Units (0/1) Route: intravenous Frequency: Once Ordered Rate/Order Duration: -- / -- Line Med Link Info Comment Peripheral IV 20 G Right Antecubital 06/07/222013 by Cora Samaniego RN -- Timestamps Action Dose Route Other Information Performed 06/07/222013 Documented: 06/07/222015 Given 7 Units intravenous Performed by: Cora Samaniego RN Dual Signoff by: Rachel Masters RN Scanned Package: 8752-7211-84 insulin regular (HumuLIN R, NovoLIN R) 100 unit/mL injection 4 Units [[id number]] Ordering Provider: Jeffrey Green MD Status: Completed (Past End Date/Time) Ordered On: 06/16/22 1133 Starts/Ends: 06/16/22 1215 - 06/16/22 1204 Ordered Dose (Remaining/Total): 4 Units (0/1) Route: intravenous Frequency: Once Ordered Rate/Order Duration: -- / -- Timestamps Action Dose Route Other Information Performed 06/16/22 120 Documented: 06/16/22 120 Given 4 Units intravenous Performed by: Ravi Hollingsworth RN Dual Signoff by: Rachel Masters RN Scanned Package: 0321-8209-69 INSULIN SUBCUTANEOUS PUMP (HUMALOG) 100 UNITS/ML INSULIN PUMP INFUSION (HumaLOG) patient supplied pump 0-25 Units [[id number]] Ordering Provider: Dora Delarosa NP Status: Verified Ordered On: 06/28/22 1152 Start: 06/28/22 1230 Ordered Dose (Remaining/Total): 0-25 Units (--/--) Route: subcutaneous Frequency: Continuous Ordered Rate/Order Duration: -- / -- Admin Instructions: Current pump settings will remain until a member of the Endocrine team, Maternal- Medicine (if applicable), or designee evaluates the patient and/or adjusts the pump settings. Note to pharmacy: Pharmacist enter and dispense a one-time order when RN requests a refill. Question Answer Comment Attestation:: Possesses no safety concerns (eg. diagnosis of DKA/HHS, admit to ICU, risk of self harm) -- Attestation: Possesses visual acuity and fine motor skills to operate pump -- Attestation:: Alert and oriented x 4 -- Attestation:: Verbalizes desire to remain on insulin pump during hospitalization and understands insulin pump agreement -- Insulin Pump:: Insulin Pump Settings -- Insulin Pump Settings:: Basal Rate -- -- Carbohydrate Ratio -- -- High Glucose Correction -- Basal Rate (units/hr):: 1 -- From (hh:mm):: 3:30 AM -- To (hh:mm):: 8:00 AM -- Basal Rate (units/hr):: 0.8 -- From (hh:mm):: 8:00 AM -- To (hh:mm):: 8:00 PM -- Basal Rate (units/hr):: 5.8 -- From (hh:mm):: 8:00 PM -- To (hh:mm):: 3:30 AM -- Carbohydrate Ratio: 1 unit per how many gm carbohydrate: 6.5 -- From: (hh:mm): 12:00 AM -- To:(hh:mm): 12:00 AM -- High Glucose Correction: 1 unit per how many mg/dL over target: 25 -- From:(hh:mm): 12:00 AM -- To:(hh:mm): 12:00 AM -- Choose Target (mg/dL):: 120 -- Timestamps Action Dose Route / Site Other Information Performed 06/29/22826 Documented: 06/29/22826 Self Administered Via Pump 7 Units subcutaneous Left Lower Abdomen Performed by: Manda Lake RN isosorbide mononitrate ER (IMDUR) extended release tablet 30 mg [[id number]] Ordering Provider: Carey East MD Status: Dispensed Ordered On: 06/24/22 163 Start: 06/24/221714 Ordered Dose (Remaining/Total): 30 mg (--/--) Route: oral Frequency: Daily Ordered Rate/Order Duration: -- / -- Admin Instructions: Tablets that are scored may be split, but do not crush, chew, dissolve, open or otherwise manipulate tablet/capsule. Timestamps Action Dose Route Other Information Performed 06/29/22821 Documented: 06/29/22823 Given 30 mg oral Performed by: Manda Lake RN Scanned Package: 0928-1572-23 lidocaine PF (XYLOCAINE) 10 mg/mL (1 %) preservative free injection [[id number]] Ordering Provider: Aric Cordova MD Status: Completed (Past End Date/Time) Ordered On: 06/18/22 123 Frequency: Code/trauma/sedation medication Timestamps Action Dose Route Other Information Performed 06/18/22 1231 Documented: 06/18/22 123 Given 10 mL Injection Performed by: Aric Cordova MD Documented by: Nick Delarosa RN losartan (COZAAR) tablet 12.5 mg [[id number]] Ordering Provider: Carey East MD Status: Dispensed Ordered On: 06/24/221717 Start: 06/25/22 09 Ordered Dose (Remaining/Total): 12.5 mg (--/--) Route: oral Frequency: Daily Ordered Rate/Order Duration: -- / -- Timestamps Action Dose Route Other Information Performed 06/29/22821 Documented: 06/29/22823 Given 12.5 mg oral Performed by: Manda Lake RN Scanned Package: 49501-038-63 magnesium sulfate 2 g/50 mL in water (premix) 2 g [[id number]] Ordering Provider: Jeffrey Green MD Status: Completed (Past End Date/Time) Ordered On: 06/18/221837 Starts/Ends: 06/18/221914 - 06/18/222024 Ordered Dose (Remaining/Total): 2 g (0/1) Route: intravenous Frequency: Once Ordered Rate/Order Duration: -- / 60 Minutes Timestamps Action Dose / Duration Route Other Information Performed 06/18/221924 Documented: 06/18/221924 New Bag 2 g 60 Minutes intravenous Performed by: Carlos Esparza RN Scanned Package: 7709-1800-50 metoprolol tartrate (LOPRESSOR) immediate release tablet 25 mg [[id number]] Ordering Provider: Carey East MD Status: Dispensed Ordered On: 06/26/22 1551 Start: 06/27/22 0900 Ordered Dose (Remaining/Total): 25 mg (--/--) Route: oral Frequency: 2 times daily Ordered Rate/Order Duration: -- / -- Timestamps Action Dose Route Other Information Performed 06/29/22821 Documented: 06/29/22 08 Given 25 mg oral Performed by: Manda Lake RN Scanned Package: 66958-795-38 midazolam (VERSED) 1 mg/mL injection 2 mg [[id number]] Ordering Provider: Lavern Morrison MD Status: Completed (Past End Date/Time) Ordered On: 06/15/221756 Starts/Ends: 06/15/221829 - 06/15/221804 Ordered Dose (Remaining/Total): 2 mg (0/1) Route: intravenous Frequency: Once Ordered Rate/Order Duration: -- / -- Timestamps Action Dose Route Other Information Performed 06/15/221804 Documented: 06/15/221805 Given 2 mg intravenous Performed by: Ravi Hollingsworth RN Scanned Package: 4608-0049-67 midazolam (VERSED) bolus from bag 2 mg [[id number]] Ordering Provider: Jeffrey Green MD Status: Completed (Past End Date/Time) Ordered On: 06/16/221719 Starts/Ends: 06/16/22 1800 - 06/16/221744 Ordered Dose (Remaining/Total): 2 mg (0/1) Route: intravenous Frequency: Once Ordered Rate/Order Duration: -- / -- Timestamps Action Dose Route Other Information Performed 06/16/221744 Documented: 06/16/221756 Bolus from Bag 2 mg intravenous Performed by: Ravi Hollingsworth RN pantoprazole DR (PROTONIX) extended release tablet 40 mg [[id number]] Ordering Provider: Carey East MD Status: Dispensed Ordered On: 06/25/22 115 Start: 06/26/22 09 Ordered Dose (Remaining/Total): 40 mg (--/--) Route: oral Frequency: Daily Ordered Rate/Order Duration: -- / -- Admin Instructions: Do not crush, chew, cut, dissolve, open or otherwise manipulate tablet/capsule. Timestamps Action Dose Route Other Information Performed 06/29/22821 Documented: 06/29/22823 Given 40 mg oral Performed by: Manda Lake RN Scanned Package: 3490-2615-36 perflutren protein-a (OPTISON) 0.22 mg/mL injection - ADS Override Pull [[id number]] Status: Completed (Past End Date/Time) Ordered On: 06/08/221422 Starts/Ends: 06/08/221422 - 06/08/221441 Ordered Dose (Remaining/Total): -- (0/1) Route: -- Frequency: -- Ordered Rate/Order Duration: -- / -- Admin Instructions: Created by cabinet override Note to pharmacy: Created by cabinet override Timestamps Action Dose Route / Site / Linked Line Other Information Performed 06/08/22 144 Documented: 06/08/22 1451 Contrast Given 3 mL -- Performed by: Elli Larsen RDCS perflutren protein-a (OPTISON) 3 mL in sodium chloride 0.9% 8 mL syringe [[id number]] Ordering Provider: Meme Castro MD Status: Completed (Past End Date/Time) Ordered On: 06/13/22837 Starts/Ends: 06/13/22837 - 06/13/22934 Ordered Dose (Remaining/Total): 1-8 mL (0/1) Route: intravenous Frequency: Once in imaging Ordered Rate/Order Duration: -- / -- Timestamps Action Dose Route Other Information Performed 06/13/22934 Documented: 06/13/22934 Contrast Given 2 mL intravenous Performed by: Elli Larsen, RDJEROME polyvinyl alcohol-povidone (REFRESH CLASSIC) 1.4-0.6 % ophthalmic solution 1 drop [[id number]] Ordering Provider: Jeffrey Green MD Status: Dispensed Ordered On: 06/16/221911 Start: 06/16/222099 Ordered Dose (Remaining/Total): 1 drop (--/--) Route: each eye Frequency: 4 times daily Ordered Rate/Order Duration: -- / -- Timestamps Action Dose Route Other Information Performed 06/29/22821 Documented: 06/29/22823 Given 1 drop each eye Performed by: Manda Lake RN Scanned Package: 3899-2164-00 potassium chloride (KLOR-CON) packet 40 mEq [[id number]] Ordering Provider: Meme Castro MD Status: Completed (Past End Date/Time) Ordered On: 06/07/222224 Starts/Ends: 06/07/222299 - 06/07/222348 Ordered Dose (Remaining/Total): 40 mEq (0/1) Route: feeding tube Frequency: Once Ordered Rate/Order Duration: -- / -- Admin Instructions: Dissolve one packet in at least 120 mL of cold water or other beverage prior toadministration. Timestamps Action Dose Route Other Information Performed 06/07/222348 Documented: 06/07/222348 Given 40 mEq feeding tube Performed by: Rachel Masters RN Scanned Package: [address]-2, [address]-3 potassium chloride 40 mEq/100 mL in sterile water (premix) 40 mEq [[id number]] Ordering Provider: Ashley Baer MD Status: Completed (Past End Date/Time) Ordered On: 06/07/222156 Starts/Ends: 06/07/222229 - 10/19/22 0209 Ordered Dose (Remaining/Total): 40 mEq (0/1) Route: intravenous Frequency: Once Ordered Rate/Order Duration: 25 mL/hr / 4 Hours Admin Instructions: Total dose = 60 mEq Central line only Timestamps Action Rate Route Other Information Performed 06/07/22 230 Documented: 06/08/22 0104 Rate/Dose Verify 25 mL/hr intravenous Performed by: Rachel Masters RN potassium chloride 40 mEq/100 mL in sterile water (premix) 40 mEq [[id number]] Ordering Provider: Meme Castro MD Status: Dispensed (Past End Date/Time) Ordered On: 06/07/222329 Starts/Ends: 06/08/22 0015 - 06/08/22 0814 Ordered Dose (Remaining/Total): 40 mEq (1/2) Route: intravenous Frequency: Every 4 hours Ordered Rate/Order Duration: 25 mL/hr / 4 Hours Admin Instructions: Total dose = 80 mEq Central line only Timestamps Action Dose / Rate / Duration Route Other Information Performed 06/07/222350 Documented: 06/07/222350 New Bag 40 mEq 25 mL/hr 4 Hours intravenous Performed by: Rachel Masters RN Scanned Package: 5420-7942-36 potassium chloride ER (KLOR-CON) extended release tablet 30 mEq [[id number]] Ordering Provider: Tyra De La Torre MD Status: Completed (Past End Date/Time) Ordered On: 06/17/222230 Starts/Ends: 06/17/222314 - 06/17/222239 Ordered Dose (Remaining/Total): 30 mEq (0/1) Route: oral Frequency: Once Ordered Rate/Order Duration: -- / -- Admin Instructions: Do not crush, chew, cut, dissolve, open or otherwise manipulate tablet/capsule. Timestamps Action Dose Route Other Information Performed 06/17/222239 Documented: 06/17/222239 Given 30 mEq oral Performed by: Carlos Esparza RN Scanned Package: 48286-863-19, 12119-925-68, 30944-865-66 potassium chloride ER (KLOR-CON) extended release tablet 20 mEq [[id number]] Ordering Provider: Carey East MD Status: Completed (Past End Date/Time) Ordered On: 06/27/22825 Starts/Ends: 06/27/22899 - 06/27/22856 Ordered Dose (Remaining/Total): 20 mEq (0/1) Route: oral Frequency: Once Ordered Rate/Order Duration: -- / -- Admin Instructions: Do not crush, chew, cut, dissolve, open or otherwise manipulate tablet/capsule. Timestamps Action Dose Route Other Information Performed 06/27/22856 Documented: 06/27/22856 Given 20 mEq oral Performed by: Mnada Lake RN Scanned Package: 8227-4492-41, 6050-4172-05 predniSONE (DELTASONE) tablet 50 mg [[id number]] Ordering Provider: Veronica Tavares MD Status: Completed (Past End Date/Time) Ordered On: 06/06/22 1344 Starts/Ends: 06/07/22 0000 - 06/07/22 1018 Ordered Dose (Remaining/Total): 50 mg (0/3) Route: oral Frequency: Every 6 hours Ordered Rate/Order Duration: -- / -- Admin Instructions: Call Radiology to schedule procedure after the 1st dose is administered. 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 technician premed Scanned Package: 3870-2328-20 ramelteon (ROZEREM) tablet 8 mg [[id number]] Ordering Provider: Marcelina Pickard NP Status: Dispensed Ordered On: 06/08/22918 Start: 06/08/22918 Ordered Dose (Remaining/Total): 8 mg (--/--) Route: feeding tube Frequency: Nightly PRN Ordered Rate/Order Duration: -- / -- Timestamps Action Dose Route Other Information Performed 06/08/222040 Documented: 06/08/222040 Given 8 mg feeding tube Performed by: Rachel Masters RN Scanned Package: [address]-5 sodium bicarbonate 8.4 % (1 mEq/mL) injection 50 mEq [[id number]] Ordering Provider: Champ Osborne MD PhD Status: Completed (Past End Date/Time) Ordered On: 06/07/22 1348 Starts/Ends: 06/07/22 1430 - 06/07/22 1335 Ordered Dose (Remaining/Total): 50 mEq (0/1) Route: intravenous Frequency: Once Ordered Rate/Order Duration: -- / -- Timestamps Action Dose Route Other Information Performed 06/07/221334 Documented: 06/07/22 1351 Given 50 mEq intravenous Performed by: Stephaine Bacon RN sodium chloride 0.9% IVPB 0-250 mL [[id number]] Ordering Provider: Meme Castro MD Status: Completed (Past End Date/Time) Ordered On: 06/20/22 0015 Starts/Ends: 06/20/22 0100 - 06/20/22 0058 Ordered Dose (Remaining/Total): 0-250 mL (0/1) Route: intravenous Frequency: Once Ordered Rate/Order Duration: -- / -- Admin Instructions: Prime blood tubing and administer amount needed to clear line (usually 50-100 mL) after transfusion complete. Timestamps Action Dose / Rate Route Other Information Performed 06/20/2257 Documented: 06/20/22 005 New Bag 250 mL 50 mL/hr intravenous Performed by: Carlos Esparza RN Scanned Package: 4839-3381-88 sodium chloride 0.9% IVPB 0-250 mL [[id number]] Ordering Provider: Robert Henry MD Status: Completed (Past End Date/Time) Ordered On: 06/20/2234 Starts/Ends: 06/20/22 1015 - 06/20/22 0953 Ordered Dose (Remaining/Total): 0-250 mL (0/1) Route: intravenous Frequency: Once Ordered Rate/Order Duration: -- / -- Admin Instructions: Prime blood tubing and administer amount needed to clear line (usually 50-100 mL) after transfusion complete. Timestamps Action Dose Route Other Information Performed 06/20/22952 Documented: 06/20/22952 New Bag 250 mL intravenous Performed by: Margaret Escobar RN Scanned Package: 4284-8034-12 Rex Scale Flowsheet Row Most Recent Value Sensory Perceptions 4 ............filed at 06/29/2022814 Moisture 4 ............filed at 06/29/2022814 Activity 3 ............filed at 06/29/2022814 Mobility 3 ............filed at 06/29/2022814 Nutrition 3 ............filed at 06/29/2022814 Friction and Shear 3 ............filed at 06/29/2022814 Rex Scale Score 20 ............filed at 06/29/2022814 Neuro Assessment Flowsheet Row Most Recent Value Level of Consciousness Alert, Awake ............filed at 06/29/2022814 Orientation Oriented X4 (person, place, time, situation) ............filed at 06/29/2022814 Speech Clear ............filed at 06/29/2022814 Neuro (WDL) X ............filed at 06/22/2022799 Other Neuro Symptoms Fatigue ............filed at 06/27/20221999 Motor Function/Sensation Assessment Motor response ............filed at 06/22/2022799 Respiratory Assessment Flowsheet Row Most Recent Value Respiratory (WDL) X .............filed at 06/22/2022799 Bilateral Breath Sounds (All Lobes) Diminished .............filed at 06/27/20221999 R Breath Sounds Diminished .............filed at 06/27/20221999 L Breath Sounds Diminished .............filed at 06/27/20221999 Respiratory Pattern Normal .............filed at 06/29/2022814 Chest Assessment Symmetrical .............filed at 06/27/20221999 Cough Absent .............filed at 06/24/2022 0400 NPPV Patient Yes .............filed at 06/27/20221999 Respiratory Effort Unlabored .............filed at 06/27/20221999 Respiratory Depth/Rhythm Regular .............filed at 06/27/20221999 Peripheral Vascular Assess Flowsheet Row Most Recent Value Peripheral Vascular (WDL) WDL .............filed at 06/29/2022814 R Radial Pulse +2 .............filed at 06/27/20221999 L Radial Pulse +2 .............filed at 06/27/20221999 Capillary Refill Less than/equal to 3 seconds (All extremities) .............filed at 06/29/2022814 Pulses R pedal, L pedal .............filed at 06/29/2022814 Cyanosis None .............filed at 06/29/2022 08 All Pulses Palpable .............filed at 06/29/2022814 R Posterior Tibial Pulse +1 .............filed at 06/27/20221999 R Pedal Pulse +2 .............filed at 06/29/2022814 L Posterior Tibial Pulse +1 .............filed at 06/27/2022 2000 L Pedal Pulse +2 .............filed at 06/29/2022814 Edema +1 .............filed at 06/29/2022814 RUE Edema No pitting .............filed at 06/29/2022814 RLE Edema No pitting .............filed at 06/29/2022814 LUE Edema No pitting .............filed at 06/29/2022814 LLE Edema No pitting .............filed at 06/29/2022814 Edema Generalized .............filed at 06/29/2022814 Genitourinary Assess Flowsheet Row Most Recent Value Genitourinary (WDL) X ............filed at 06/29/2022814 Genitourinary Symptoms Oliguric ............filed at 06/29/2022814 Musculoskeletal Assess Flowsheet Row Most Recent Value RUE Full movement ............filed at 06/29/2022814 RLE Limited movement ............filed at 06/29/2022814 LUE Full movement ............filed at 06/29/2022814 LLE Limited movement ............filed at 06/29/2022814 Musculoskeletal (WDL) X ............filed at 06/29/2022814 Urine Assess Flowsheet Row Most Recent Value Urinary Incontinence No ............filed at 06/24/2022807 Urine Color Bambi, Brown ............filed at 06/27/2022 0745 Urine Appearance Clear ............filed at 06/27/2022744 Urine Odor No odor ............filed at 06/27/2022744 Bladder Scan Volume (mL) 182 mL ............filed at 06/08/2022 0235 Torres Fall Risk Flowsheet Row Most Recent Value Prior Fall Event (Autopopulated from EMR) None found ............filed at 06/29/2022814 History of Falling 0 ............filed at 06/29/2022814 Secondary Diagnosis 15 ............filed at 06/29/2022814 Ambulatory Aids 0 ............filed at 06/29/2022814 Intravenous Therapy/Heparin/Saline Lock 20 ............filed at 06/29/2022814 Gait/Transferring 0 ............filed at 06/29/2022 08 Mental Status 0 ............filed at 06/29/2022814 Torres Fall Risk Score 35 ............filed at 06/29/2022814 ADLs Flowsheet Row Most Recent Value Patient's Vision Adequate to Safely Complete Daily Activities Yes ............filed at 06/04/20222299 Patient's Judgement Adequate to Safely Complete Daily Activities Yes ............filed at 06/04/20222299 Patient's Memory Adequate to Safely Complete Daily Activities Yes ............filed at 06/04/20222299 Patient Able to Express Needs/Desires Yes ............filed at 06/04/20222299 Dominant hand? Right ............filed at 06/04/20222299 Dressing Independent ............filed at 06/04/20222299 Grooming Independent ............filed at 06/04/20222299 Feeding Independent ............filed at 06/04/20222299 Bathing Independent ............filed at 06/04/20222299 Toileting Independent ............filed at 06/04/20222299 In/Out Bed Independent ............filed at 06/04/20222299 Walks in Home Independent ............filed at 06/04/20222299 Weakness of Legs None ............filed at 06/04/20222299 Weakness of Arms/Hands None ............filed at 06/04/20222299 Hearing - Right Ear Functional ............filed at 06/04/20222299 Hearing - Left Ear Functional ............filed at 06/04/20222299 Decline in ADLs in last 2 weeks? No ............filed at 06/04/20222299 HEENT Assessment Flowsheet Row Most Recent Value HEENT (WDL) WDL ............filed at 06/29/2022 0815 R Eye Intact ............filed at 06/23/2022129 L Eye Intact ............filed at 06/23/2022129 R Ear Intact ............filed at 06/23/2022129 L Ear Intact ............filed at 06/23/2022129 Nose Intact ............filed at 06/23/2022129 Throat Intact ............filed at 06/23/2022129 Tongue [place], Moist ............filed at 06/23/2022129 Voice Deep ............filed at 06/22/2022 08 Mucous Membrane(s) Moist, [place] ............filed at 06/22/2022 08 Teeth and Gums Intact ............filed at 06/23/2022129 Head and Face Symmetrical ............filed at 06/23/2022129 Neck Symmetrical ............filed at 06/23/2022129 Lips Symmetrical ............filed at 06/23/2022129 Cardiac Assess Flowsheet Row Most Recent Value Ectopy Premature ventricular contractions ............filed at 06/24/2022 0808 Ectopy Frequency Rare ............filed at 06/24/2022 0808 Cardiac Regularity Regular ............filed at 06/22/2022 08 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........filed at 06/27/20221999 GI Symptoms None ............filed at 06/24/2022 0808 Psych/Social Assess Flowsheet Row Most Recent Value Psychosocial (WDL) X filed at 06/29/2022 0815 Facial Expression Flat filed at 06/29/2022 0815 Mood Depressed filed at 06/29/2022 0815 Affect Calm filed at 06/24/2022 0808 Eye Contact Good filed at 06/24/2022 0808 Exhibited Behavior Calm, Cooperative filed at 06/24/2022 0808 Needs Expressed Denies filed at 06/24/2022 0808 Interaction Minimal filed at 06/24/2022 0808 Motor Activity WDL filed at 06/24/2022 0808 Appearance/Hygiene Appropriate/neat/clean filed at 06/22/2022 0800 Currently suicidal? No filed at 06/06/20221999 History of Violence/Physical Aggression No filed at 06/06/2022 2000 Currently Homicidal? No filed at 06/06/20221999 Integumentary Assess Flowsheet Row Most Recent Value Integumentary (WDL) WDL ............filed at 06/28/20221999 Skin Color Appropriate for ethnicity ............filed at 06/27/20221999 Skin Condition/Temp Flaky, Peeling ............filed at 06/27/20221999 Skin Integrity Cracking ............filed at 06/26/2022 0725 Skin Turgor Non-tenting ............filed at 06/24/2022 0808 Skin Location generalized ............filed at 06/27/20221999 Anus/Rectum Assess Flowsheet Row Most Recent Value Anus/Rectum (WDL) WDL ............filed at 06/29/2022 0815 Evaluation/Tone Foreign object (Comment) ............filed at 06/22/2022 0800 Patient Lines/Drains/Airways Status Active Airway / Central venous catheter / Drain / Epidural cathether / Intraosseous line / Peripherally inserted central catheter / Peripheral intravenous line / Arterial line Active Airway / Central venous catheter / Drain / Epidural cathether / Intraosseous line / Peripherally inserted central catheter / Peripheral intravenous line / Arterial line Name Placement date Placement time Site Days Peripheral IV 06/21/22 20 G Anterior;Left;Proximal Forearm 06/21/22 1006 Forearm 8 Peripheral IV 06/25/22 20 G Anterior;Proximal;Right Forearm 06/25/22 0700 Forearm 4 Patient Lines/Drains/Airways Status Active Wound / Pressure ulcer / [place] / Negative Pressure Wound Wound 06/12/22 Hematoma Left Neck Hematoma in the IJ Date First Assessed 06/12/22 Site Neck Time First Assessed 0410 Days 17 Present on Hospital Admission: No Wound Type: Hematoma Location Orientation: Left Wound Description (Comments): Hematoma in the IJ Assessments Assessments Row Name 06/29/22 0815 06/28/22 0900 06/27/221999 Wound Status Evolving Evolving -- Wound 06/13/22 Rash Anterior;Right Thigh Date First Assessed 06/13/22 Site Thigh Time First Assessed 0127 Days 16 Wound Type: Rash Location Orientation: Anterior;Right Assessments Assessments Row Name 06/29/22 0815 06/28/22 0900 06/27/221999 Wound Status Evolving Evolving -- Wound 06/21/22 MASD (Moisture associated skin damage) Bilateral Buttocks Date First Assessed 06/21/22 Site Buttocks Time First Assessed 1541 Days 7 Wound Type: MASD (Moisture associated skin damage) Location Orientation: Bilateral Assessments Assessments Row Name 06/29/22 0815 06/28/22 0900 06/27/221999 Wound Status Evolving Evolving Evolving Site Assessment -- -- Fragile;Painful Closure -- -- Open to air Lab Micro Path Results - last 72 hours COVID-19 Coronavirus RNA Nasopharyngeal [[id number]] Resulted: 06/28/22 1703, Result status: Final result Ordering provider: Frank Bowers MD 06/28/22 1517 Resulting lab: [facility] Narrative: Is the patient experiencing any symptoms consistent with COVID (eg. Fever, cough, shortness of breath)?->No What is the reason for testing?->Placement in post-acute care setting (Rapid) Interpretive data: Synonyms for this test include: PCR and NAAT . This test is performed using the [employer] Xpert Xpress plus assay. This is a real-time RT-PCR test intended for the qualitative detection of nucleic acid from the SARS-CoV-2. This assay has been reviewed by the FDA for Emergency Use Authorization (EUA). The performance characteristics have been verified by the performing laboratory. Results must be considered in the clinical context and a negative result does not rule out infection. Interpretive data last revised January 19, 2022. Interpretive data: Synonyms for this test include: PCR and NAAT . This test is performed using the [employer] Xpert Xpress plus assay. This is a real-time RT-PCR test intended for the qualitative detection of nucleic acid from the SARS-CoV-2. This assay has been reviewed by the FDA for Emergency Use Authorization (EUA). The performance characteristics have been verified by the performing laboratory. Results must be considered in the clinical context and a negative result does not rule out infection. Interpretive data last revised January 19, 2022. Specimen Information Type Source Collected On Nasopharyngeal -- 06/28/22 1546 Components Component Value Reference Range Flag Lab COVID-19 RNA Negative Negative -- -- eGFR [[id number]] (Abnormal) Resulted: 06/27/22457, Result status: Final result Ordering provider: Carey East MD 06/27/22350 Resulting lab: [facility] Specimen Information Type Source Collected On Blood -- 06/27/22 035 Components Component Value Reference Range Flag Lab eGFR 6 90 - 130 mL/min/1.73 m2 L Low -- Basic metabolic panel [[id number]] (Abnormal) Resulted: 06/27/22457, Result status: Final result Ordering provider: Carey East MD 06/26/22 1800 Resulting lab: [facility] Specimen Information Type Source Collected On Blood -- 06/27/22350 Components Component Value Reference Range Flag Lab Sodium 132 135 - 145 mmol/L L Low -- Potassium, pl 3.1 3.3 - 4.9 mmol/L L Low -- Chloride 89 97 - 110 mmol/L L Low -- CO2 26 22 - 32 mmol/L -- -- Anion gap 17 2 - 15 mmol/L H High -- BUN 46 8 - 25 mg/dL H High -- Creatinine 10.21 0.80 - 1.30 mg/dL H High -- Glucose 274 70 - 199 mg/dL H High -- Calcium 8.4 8.5 - 10.3 mg/dL L Low -- CBC without differential [[id number]] (Abnormal) Resulted: 06/27/22 0435, Result status: Final result Ordering provider: Carey East MD 06/26/22 1800 Resulting lab: [facility] Specimen Information Type Source Collected On Blood -- 06/27/22 0351 Components Component Value Reference Range Flag Lab WBC 3.8 3.8 - 9.9 K/cumm -- -- Hgb 7.5 13.0 - 17.5 g/dL L Low -- Hct 22.8 38.9 - 50.3 % L Low -- Plt 294 150 - 400 K/cumm -- -- MPV 10.0 9.1 - 12.3 fL -- -- RBC 2.49 4.30 - 5.80 M/cumm L Low -- MCV 91.6 81.3 - 96.4 fL -- -- MCH 30.1 27.1 - 33.3 pg -- -- MCHC 32.9 32.3 - 35.7 g/dL -- -- RDW CV 17.5 11.1 - 14.9 % H High -- RDW SD 57.9 35.7 - 48.1 fL H High -- NRBC abs 0.00 0.00 - 0.01 K/cumm -- -- Imaging Results-last 72 hours No matching results found ECG/EMG Results ECG 12 lead [[id number]] Resulted: 06/23/22 162, Result status: Final result Ordering provider: Carey East MD 06/23/22 1330 Resulted by: Hudson Sal Jr., MD PhD Accession number: [id number] Resulting lab: [facility] Components Component Value Reference Range Flag Lab Ventricular Rate EKG/Min 100 BPM -- -- Atrial Rate 100 BPM -- -- KY-Interval (MSEC) 182 ms -- -- QRS-Interval (MSEC) 106 ms -- -- QT-Interval (MSEC) 380 ms -- -- QTc 490 ms -- -- R Oxford -47 degrees -- -- T Oxford 105 degrees -- -- Diagnosis -- -- -- -- Result: Sinus rhythm with Premature supraventricular complexes Left axis deviation Minimal voltage criteria for LVH, may be normal variant Poor precordial R wave progression consistent with faulty lead placement ,copd, anterior infarction, etc. Anterior infarct (cited on or before 19-JUN-2022) ST & T wave abnormality, consider lateral ischemia Abnormal ECG When compared with ECG of 19-JUN-2022 13:03, Sinus rhythm has replaced Atrial fibrillation ST elevation now present in Inferior leads ST no longer depressed in Lateral leads Confirmed by HUDSON SAL M.D ([id number]) on 06/23/2022 4:28:23 PM ECG 12 lead [[id number]] Resulted: 06/23/22 1444, Result status: Preliminary result Ordering provider: Carey East MD 06/23/22 1330 Resulted by: Hudson Sal Jr., MD PhD Accession number: [id number] Resulting lab: [facility] [employer] Component Value Reference Range Flag Lab Ventricular Rate EKG/Min 100 BPM -- -- Atrial Rate 100 BPM -- -- KY-Interval (MSEC) 182 ms -- -- QRS-Interval (MSEC) 106 ms -- -- QT-Interval (MSEC) 380 ms -- -- QTc 490 ms -- -- R Oxford -47 degrees -- -- T Oxford 105 degrees -- -- Diagnosis -- -- -- -- Result: Sinus rhythm with Premature supraventricular complexes Left axis deviation Minimal voltage criteria for LVH, may be normal variant Anterior infarct (cited on or before 19-JUN-2022) ST & T wave abnormality, consider lateral ischemia Abnormal ECG When compared with ECG of 19-JUN-2022 13:03, Sinus rhythm has replaced Atrial fibrillation ST elevation now present in Inferior leads ST no longer depressed in Lateral leads ECG 12 lead [[id number]] Resulted: 06/22/22 1055, Result status: Final result Ordering provider: Fernando Torres MD 06/19/22 1255 Resulted by: Hudson Sal Jr., MD PhD Accession number: [id number] Resulting lab: [facility] [employer] Comp[employer] Component Value Reference Range Flag Lab Ventricular Rate EKG/Min 126 BPM -- -- Atrial Rate 63 BPM -- -- QRS-Interval (MSEC) 106 ms -- -- QT-Interval (MSEC) 360 ms -- -- QTc 521 ms -- -- R Oxford -53 degrees -- -- T Oxford 125 degrees -- -- Diagnosis -- -- -- -- Result: Atrial fibrillation with rapid ventricular response with premature ventricular or aberrantly conducted complexes Left axis deviation Poor precordial R wave progression Anterior infarct , age undetermined ST & T wave abnormality, consider lateral ischemia Abnormal ECG When compared with ECG of 18-JUN-2022 18:40, (unconfirmed) No significant change was found Confirmed by HUDSON SAL M.D ([id number]) on 06/22/2022 10:55:43 AM ECG 12 lead [[id number]] Resulted: 06/21/22 1328, Result status: Final result Ordering provider: Fernando Torres MD 06/18/22 1831 Resulted by: Kenn Billingsley MD Accession number: [id number] Resulting lab: [facility] [employer] Component Value Reference Range Flag Lab Ventricular Rate EKG/Min 133 BPM -- -- Atrial Rate 147 BPM -- -- QRS-Interval (MSEC) 102 ms -- -- QT-Interval (MSEC) 332 ms -- -- QTc 494 ms -- -- R Oxford -43 degrees -- -- T Oxford 123 degrees -- -- Diagnosis -- -- -- -- Result: Atrial fibrillation with rapid ventricular response Left axis deviation ST & T wave abnormality, consider lateral ischemia Long QTc When compared with ECG of 07-JUN-2022 16:59, Atrial fibrillation has replaced Sinus rhythm Vent. rate has increased BY 82 BPM QRS duration has decreased Inverted T waves have replaced nonspecific T wave abnormality in Lateral leads T wave abnormalities have improved in anyterior leads Confirmed by KENN BILLINGSLEY M.D ([id number]) on 06/21/2022 1:28:53 PM ECG 12 lead [[id number]] Resulted: 06/08/22 0942, Result status: Final result Ordering provider: Jeffrey Green MD 06/07/22 1647 Resulted by: Jess Bustos MD Accession number: [id number] Resulting lab: [facility] [employer] Component Value Reference Range Flag Lab Ventricular Rate EKG/Min 51 BPM -- -- Atrial Rate 51 BPM -- -- KY-Interval (MSEC) 212 ms -- -- QRS-Interval (MSEC) 130 ms -- -- QT-Interval (MSEC) 580 ms -- -- QTc 534 ms -- -- P Oxford 69 degrees -- -- R Oxford -38 degrees -- -- T Oxford 95 degrees -- -- Diagnosis -- -- -- -- Result: Sinus bradycardia with 1st degree A-V block Left axis deviation Long QT interval Non-specific intra-ventricular conduction block Abnormal QRS-T angle, consider primary T wave abnormality Abnormal ECG When compared with ECG of 05-JUN-2022 14:52, QRS duration has increased Criteria for Septal infarct are no longer Present Nonspecific T wave abnormality now evident in Anterior leads Confirmed by JESS BUSTOS M.D ([id number]) on 06/08/2022 9:42:26 AM ECG 12 lead [[id number]] Resulted: 06/07/22 0830, Result status: Final result Ordering provider: Toyin Alberto MD 06/05/22 1448 Resulted by: Jess Bustos MD Accession number: [id number] Resulting lab: [facility] [employer] Component Value Reference Range Flag Lab Ventricular Rate EKG/Min 73 BPM -- -- Atrial Rate 73 BPM -- -- KY-Interval (MSEC) 184 ms -- -- QRS-Interval (MSEC) 106 ms -- -- QT-Interval (MSEC) 442 ms -- -- QTc 486 ms -- -- P Oxford 49 degrees -- -- R [place] -33 degrees -- -- T Oxford 87 degrees -- -- Diagnosis -- -- -- -- Result: Normal sinus rhythm Left axis deviation QS in V1 and V2, a nonspecific finding with multiple causes, including lead misplacement or septal infarction in 20% Abnormal ECG Confirmed by JESS BUSTOS M.D ([id number]) on 06/07/2022 8:30:06 AM ECG 12 lead [[id number]] Resulted: 06/07/22624, Result status: Preliminary result Ordering provider: Toyin Alberto MD 06/05/22 1448 Resulted by: Jess Bustos MD Accession number: [id number] Resulting lab: [facility] [employer] Component Value Reference Range Flag Lab Ventricular Rate EKG/Min 73 BPM -- -- Atrial Rate 73 BPM -- -- KY-Interval (MSEC) 184 ms -- -- QRS-Interval (MSEC) 106 ms -- -- QT-Interval (MSEC) 442 ms -- -- QTc 486 ms -- -- P Oxford 49 degrees -- -- R Oxford -33 degrees -- -- T Oxford 87 degrees -- -- Diagnosis -- -- -- -- Result: Normal sinus rhythm Possible Left atrial enlargement Left axis deviation Septal infarct , age undetermined Abnormal ECG ECG 12 lead [[id number]] Resulted: 06/06/222156, Result status: Final result Ordering provider: Russ Milner MD 06/04/222154 Resulted by: Kenn Billingsley MD Accession number: [id number] Resulting lab: [facility] [employer] Component Value Reference Range Flag Lab Ventricular Rate EKG/Min 47 BPM -- -- Atrial Rate 47 BPM -- -- KY-Interval (MSEC) 228 ms -- -- QRS-Interval (MSEC) 116 ms -- -- QT-Interval (MSEC) 532 ms -- -- QTc 470 ms -- -- P Oxford 39 degrees -- -- R [place] -33 degrees -- -- T Oxford 105 degrees -- -- Diagnosis -- -- -- -- Result: Sinus bradycardia with 1st degree A-V block Left axis deviation Incomplete left bundle branch block Nonspecific ST and T wave abnormality Long QTc When compared with ECG of 23-MAR-2017 00:14, KY interval has increased QTc has increased Rate has decreased by 15 bpm Incomplete left bundle branch block is now Present Criteria for Septal infarct are not Present Confirmed by KENN BILLINGSLEY M.D ([id number]) on 06/06/2022 9:57:10 PM ECG 12 lead [[id number]] Resulted: 06/06/22943, Result status: Preliminary result Ordering provider: Russ Milner MD 06/04/222154 Resulted by: Kenn Billingsley MD Accession number: [id number] Resulting lab: [facility] [employer] Component Value Reference Range Flag Lab Ventricular Rate EKG/Min 47 BPM -- -- Atrial Rate 47 BPM -- -- KY-Interval (MSEC) 228 ms -- -- QRS-Interval (MSEC) 116 ms -- -- QT-Interval (MSEC) 532 ms -- -- QTc 470 ms -- -- P Oxford 39 degrees -- -- R Oxford -33 degrees -- -- T Oxford 105 degrees -- -- Diagnosis -- -- -- -- Result: Sinus bradycardia with 1st degree A-V block Left axis deviation Incomplete left bundle branch block Abnormal QRS-T angle, consider primary T wave abnormality Abnormal ECG When compared with ECG of 23-MAR-2017 00:14, KY interval has increased Incomplete left bundle branch block is now Present Criteria for Septal infarct are no longer Present ECG 12 lead [[id number]] Resulted: 06/06/22931, Result status: Preliminary result Ordering provider: Toyin Alberto MD 06/05/22 144 Resulted by: Jess Bustos MD Accession number: [id number] Resulting lab: [facility] [employer] Component Value Reference Range Flag Lab Ventricular Rate EKG/Min 73 BPM -- -- Atrial Rate 73 BPM -- -- KY-Interval (MSEC) 184 ms -- -- QRS-Interval (MSEC) 106 ms -- -- QT-Interval (MSEC) 442 ms -- -- QTc 486 ms -- -- P Oxford 49 degrees -- -- R Oxford -33 degrees -- -- T Oxford 87 degrees -- -- Diagnosis -- -- -- -- Result: Normal sinus rhythm Possible Left atrial enlargement Left axis deviation Septal infarct , age undetermined Abnormal ECG ECG 12 lead [[id number]] Resulted: 06/06/22908, Result status: Preliminary result Ordering provider: Russ Milner MD 06/04/222154 Resulted by: Kenn Billingsley MD Accession number: [id number] Resulting lab: [facility] Component Value Reference Range Flag Lab Ventricular Rate EKG/Min 47 BPM -- -- Atrial Rate 47 BPM -- -- KY-Interval (MSEC) 228 ms -- -- QRS-Interval (MSEC) 116 ms -- -- QT-Interval (MSEC) 532 ms -- -- QTc 470 ms -- -- P Oxford 39 degrees -- -- R Oxford -33 degrees -- -- T Oxford 105 degrees -- -- Diagnosis -- -- -- -- Result: Sinus bradycardia with 1st degree A-V block Left axis deviation Incomplete left bundle branch block Abnormal QRS-T angle, consider primary T wave abnormality Abnormal ECG When compared with ECG of 23-MAR-2017 00:14, KY interval has increased Incomplete left bundle branch block is now Present Criteria for Septal infarct are no longer Present Testing Performed By Lab - Abbreviation Name Director Address Valid Date Range 24 - [facility] Unknown 03/28/17 2200 - Present Progress Notes - Encounter Notes Notes from 06/27/22 through 06/29/22 Progress Notes by So Lawrence OT at 06/27/2022 9:37 AM Version 1 of 1 Author: So Lawrence OT Specialty: Occupational Therapy Author Type: Occupational Therapist Filed: 06/27/2022 11:01 AM Date of Service: 06/27/2022 9:37 AM Status: Signed Factory Supervisor: So Lawrence OT (Occupational Therapist) Occupational Therapy Occupational Therapy Progress Note NOTE: This is a summary note of the oliver components of the treatment session. For full details, review chart for all flowsheets documented on by this occupational therapy clinician on this date. Vitalsigns documented in vital signs flowsheet. Care plan progress documented in Care Plan Activity. For questions, please review the treatment team and contact the occupational therapist currently assigned to this patient. If an occupational therapist is not assigned to this patient, please call [phone]. 06/27/22 0915 General Session Type Treatment OT Received On 06/27/22 Safe Environment Arm Band Checked;Call Light within Reach;Notified RN;Patient found in Supine (Pt. in chair at end of session.) Subjective Agreeable to Therapy Family/Caregiver Present No Precautions Precautions Fall risk Precaution Comments PPE: [id number], gloves Pain Assessment Pain Assessment 0-10 Pain Score 2 Pain Orientation Generalized Balance Balance Yes Static Sitting Balance Static Sitting-Balance Support No upper extremity supported;Feet supported Static Sitting-Sitting Surface Bed;Chair Static Sitting-Level of Assistance Independent Dynamic Sitting Balance Dynamic Sitting-Balance Support No upper extremity supported;Feet supported Dynamic Sitting-Balance Lateral lean;Forward lean;Reaching for objects;Reaching across midline Dynamic Sitting-Sitting Surface Bed (Toilet) Dynamic Sitting-Level of Assistance Distant supervision Static Standing Balance Static Standing-Balance Support Bilateral upper extremity supported Static Standing-Standing Surface Floor Static Standing-Level of Assistance Minimum assistance Dynamic Standing Balance Dynamic Standing-Balance Support Unilateral upper extremity supported;No upper extremity supported Dynamic Standing-Balance Lateral lean;Forward lean;Reaching for objects;Reaching across midline Dynamic Standing-Standing Surface Floor Dynamic Standing-Level of Assistance Minimum assistance Dynamic Standing-Comments Limited dynamic standing tolerance during ADLs after ambulation to bathroom (required >2 minute seated rest break) Grooming Grooming: Where assessed Chair Grooming: Level of assistance Moderate Assist (Set up task; Total balance) Grooming: Assistance with Other (Comment) (Unable to tolerate prolonged standing for task performance) Toileting Toileting: Where assessed Toilet Toileting: Level of assistance Moderate Assist (Mod task; Min balance) Toileting: Assistance with Posterior;Perineal hygiene;Clothing management up;Clothing management down Bed Mobility Bed Mobility Yes Bed Mobility 1 Bed Mobility From 1 Supine (HOB flat) Bed Mobility Type 1 To Bed Mobility to 1 Edge of bed Level of Assistance 1 Standby Assist Bed Mobility Comments 1 Increased time; compensatory movements for force production; SBA for balance Transfers Transfer Yes (Gait belt used for all OOB activity) Transfer 1 Transfer From 1 Sit Transfer Type 1 To and from Transfer to 1 Stand Technique 1 Sit to stand;Stand to sit Transfer Device 1 Wheeled walker Transfer Level of Assistance 1 Minimum Assist Trials/Comments 1 Assist for force production and controlled descent; Min cues for optimal postioning and hand placement. 3 trials (1 EOB, 2 toilet height) Transfers 2 Trials/Comments 2 Patient performed functional room mobility to bathroom (~12-15 feet) with wheeled walker and min assist/increased time. Patient required seated rest break 2/2 dizziness/fatigue. Toilet Transfers Toilet Transfer Type To and from Toilet Transfer to Standard toilet Toilet Transfer Technique Ambulating Toilet Transfer: Equipment Wheeled walker;Grab bar Toilet Transfers Minimal assistance Toilet Transfers Comments Assist for force production and controlled descent; Min cues for optimal postioning and hand placement Cognition Cognition Comments Verbalized awareness of slowed cognition/processing speed during admission. Patient educated on potential impact on IADL task management (medication) and patient verbalized understanding and use of compensatory strategies and/or assistance to ensure accurate management. Arousal/Alertness Appropriate responses to stimuli;Delayed responses to stimuli Attention Span Appears intact;Controlled environment Current communication Appears Intact Orientation Oriented X4 (person, place, time, situation) Following Commands Follows multistep commands with increased time Safety Judgment Good awareness of safety precautions Awareness of Errors Good awareness of errors made Problem Solving Assistance required to implement solutions;Assistance required to generate solutions Compliance/Behavior Easy to engage Activity Tolerance Activity Tolerance Comments CYRUS: Hard Other Comments Comments Patient presents with dizziness following mobility this date VSS and RN notified; Delayed processing speed/motor planning observed. Daily Activity - 6 Clicks Putting on and taking off regular lower body clothing 2 Bathing 2 Toileting 2 Putting on and taking off upper body clothing 3 Personal Grooming 2 Eating Meals 3 Total Score (range 6-24) 14 Score Interpretation 33.39 Assessment Problem List Decreased cognition;Decreased safe judgment during ADL;Decreased endurance;Decreased balance;Decreased functional mobility;Decreased ADL independence;Decreased IADL independence Barriers to Discharge Current Mobility Status;Decreased caregiver support;Cognition (Current ADL status; Fall risk) Plan Plan Continue with current plan;If this is the last note, consider this the discharge summary Recommendation/Plan OT Recommendation Inpatient Rehab Facility Patient at high risk for Falls;Readmission;Injury due to decreased ability to care for self;Injury due to reduced functionalstatus;Injury due to impaired cognition;Injury due to balance deficits;Injury at home as patient has not returned to prior level of function Recommend Inpatient Rehab/Acute Rehab due to Ability to actively participate in intensive therapy 3 hours/day, 5 days/week or 900 minutes per week;Highly motivated to participate in therapy;Requires greater than 25% physical assistance with most mobility tasks;Requires greater than 25% physical assistance with most ADL tasks;Not at baseline due to impaired ability to complete ADLs;Impaired ability to complete functional mobility OT Frequency 3-5x/wk Treatment/Interventions ADL/IADL retraining;Balance Training;Compensatory technique education;Cognitive retraining;Endurance training;Functional activity;Functional mobility training;Functional transfer training;Therapeuticexercise;Therapeutic activity;Strengthening Progress Slow progress, medical status limitations OT - Next Appointment 06/29/22 OT - OK to Discharge No Multi-Disciplinary Problems (from Occupational Therapy) Active Problems Problem: Dressings Lower Extremities Start Date: 06/25/22 Goal Start Date Expected End Date End Date STG - Patient to complete lower body dressing 06/25/22 07/08/22 -- Goal Details: With modified independence. Problem: Grooming Start Date: 06/25/22 Goal Start Date Expected End Date End Date STG - Patient will complete grooming 06/25/22 07/08/22 -- Goal Details: In standing with modified independence. Problem: Toileting Start Date: 06/25/22 Goal Start Date Expected End Date End Date STG - Patient will complete toileting tasks with 06/25/22 07/08/22 -- Goal Details: Modified independence. Problem: Transfers Start Date: 06/25/22 Goal Start Date Expected End Date End Date STG - Patient will perform toilet transfer 06/25/22 07/08/22 -- Goal Details: To standard toilet with modified independence. Problem: OT Misc Start Date: 06/25/22 Goal Start Date Expected End Date End Date OT LTG - Misc 1 06/25/22 07/08/22 -- Goal Details: Patient will demonstrate modified independence/independence with ADL task completion. Progress Notes by Carey East MD at 06/27/2022 4:57 PM Version 1 of 1 Author: Carey East MD Specialty: Internal Medicine Author Type: Physician Filed: 06/27/2022 5:03 PM Date of Service: 06/27/2022 4:57 PM Status: Signed Factory Supervisor: Carey East MD (Physician) Daily Progress Note Division of Hospital Medicine Name: Adelia Garvin Jr. Today: June 27, 2022 : 1970 Age: 51 y.o. male Admit: 06/04/2022 Bed: [id number] Subjective Chief complaint: CAD s/p PCI, T1DM, ESRD on PD, cardiogenic shock Interval History: - PRABHJOT overnight - BG still above goal on basal/bolus regimen, pending resumption of insulin pump He feels well. He got up to walk with nursing and feels generally weaker than usual but not unexpected. No chest pain or dyspnea with walking. Eating well. Objective Vitals: 24hr Min/Max: Temp Min: 36.6 ??C (97.9 ??F) Max: 37.2 ??C (99 ??F) Pulse Min: 69 Max: 76 BP Min: 92/36 Max: 117/73 Resp Min: 18 Max: 18 SpO2 Min: 94 % Max: 99 % Most Recent: Vitals: 06/27/22 1446 BP: 98/48 Pulse: 70 Resp: 18 Temp: 36.8 ??C (98.2 ??F) SpO2: 98% Intake/Output Summary (Last 24 hours) at 06/27/2022 1657 Last data filed at 06/27/2022 0745 Gross per 24 hour Intake 13669 ml Output 31633 ml Net -1949 ml Physical Exam Constitutional: NAD, well developed, well nourished Eyes: Conjunctiva normal, sclera anicteric Lungs: Clear to auscultation in all lung charles, breathing unlabored Cardiovascular: RRR, normal S1 and S2, no murmurs GI: Soft, NT, mildly distended, NABS Skin: No new rashes, lesions or bruises on visible skin. Former TDC site c/d/I, covered with gauze bandage Extremities: WWP, no edema or cyanosis Neurologic: AOx4, grossly normal strength and sensation Psych: Depressed affect but improved from prior I have reviewed the patient's vital signs. Lab/Diagnostic Review: Recent Results (from the past 24 hour(s)) POCT glucose Collection Time: 06/26/22 5:53 PM Result Value Ref Range Glucose, POC 98 70 - 199 mg/dL POCT glucose Collection Time: 06/26/22 9:14 PM Result Value Ref Range Glucose, POC 184 70 - 199 mg/dL POCT glucose Collection Time: 06/27/22 1:54 AM Result Value Ref Range Glucose, POC 276 (H) 70 - 199 mg/dL Basic metabolic panel Collection Time: 06/27/22 3:51 AM Result Value Ref Range Sodium 132 (L) 135 - 145 mmol/L Potassium, pl 3.1 (L) 3.3 - 4.9 mmol/L Chloride 89 (L) 97 - 110 mmol/L CO2 26 22 - 32 mmol/L Anion gap 17 (H) 2 - 15 mmol/L BUN 46 (H) 8 - 25 mg/dL Creatinine 10.21 (H) 0.80 - 1.30 mg/dL Glucose 274 (H) 70 - 199 mg/dL Calcium 8.4 (L) 8.5 - 10.3 mg/dL CBC without differential Collection Time: 06/27/22 3:51 AM Result Value Ref Range WBC 3.8 3.8 - 9.9 K/cumm Hgb 7.5 (L) 13.0 - 17.5 g/dL Hct 22.8 (L) 38.9 - 50.3 % Plt 294 150 - 400 K/cumm MPV 10.0 9.1 - 12.3 fL RBC 2.49 (L) 4.30 - 5.80 M/cumm MCV 91.6 81.3 - 96.4 fL MCH 30.1 27.1 - 33.3 pg MCHC 32.9 32.3 - 35.7 g/dL RDW CV 17.5 (H) 11.1 - 14.9 % RDW SD 57.9 (H) 35.7 - 48.1 fL NRBC abs 0.00 0.00 - 0.01 K/cumm eGFR Collection Time: 06/27/22 3:51 AM Result Value Ref Range eGFR 6 (L) 90 - 130 mL/min/1.73 m2 POCT glucose Collection Time: 06/27/22 7:54 AM Result Value Ref Range Glucose, POC 350 (H) 70 - 199 mg/dL POCT glucose Collection Time: 06/27/22 11:37 AM Result Value Ref Range Glucose, POC 228 (H) 70 - 199 mg/dL Glucose comment 1 Glu2: RN/MD Notified POCT glucose Collection Time: 06/27/22 4:54 PM Result Value Ref Range Glucose, POC 143 70 - 199 mg/dL I have reviewed the laboratory results. Imaging Results: FL Modified Barium Swallow W Video Narrative: EXAMINATION: MODIFIED BARIUM SWALLOW HISTORY: Concern for dysphagia. TECHNIQUE: This procedure was completed in conjunction with a Speech Language Pathologist. The patient was given barium of multiple different consistencies to swallow. Video fluoroscopy was employed during the exam. FINDINGS: Oral-pharyngeal swallow function is mildly impaired. Penetration: Yes There is penetration of thin liquids and nectar thick liquids. Penetration is sensed. The penetrated material is cleared. Aspiration: No Residue:Yes There is oral-pharyngeal residue of purees and solids. Residue is not sensed. The residual material is cleared. Other comments: None Impression: The swallowing mechanism is abnormal; see above comments. Please refer to the Speech Pathology procedure note for safe swallow recommendations as well as additional information regarding the oral-pharyngeal swallow function, plan of care, and recommended follow up. Dictated by: Adam Aiken M.D. The radiology attending physician has personally reviewed this study, and had reviewed and/or edited this written report and agrees with it. Electronically signed by: Félix Chahal M.D. I have independently reviewed and interpreted: - telemetry, which showed NSR Assessment/Plan Assessment & Plan 51yo M with PMH DM1 on insulin pump c/b ESRD on PD and CAD s/p PCI, HFrecEF and Afib who was admitted on 06/04 from OSH for complex PCI after presenting with ACS, now s/p MARIELLA to LCx and OM bifurcation, which was c/b cardiogenic shock requiring impella and respiratory failure requiring intubation. CCU course c/b progressive ESRD requiring CRRT. Now resolved and transferred to the floor, improving. Atrial fibrillation ([facility]) ([facility]) Assessment & Plan Converted to NSR overnight on 06/24. CHADsVASc of 4 not on anticoagulation prior to admission. - cardiology consulted - recommended ongoing rate control - holding off on a/c with high risk for bleeding while on DAPT - reduced metop to 25mg BID in the setting of hypotension, HR 70s NSR Acute on chronic HFrEF (heart failure with reduced ejection fraction) ([facility]) Assessment & Plan C/b cardiogenic shock requiring impella in the setting of cath and AHRF 2/2 pulmonary edema, now resolved. TTE demonstrating recovered EF 65% with grade I diastolic dysfunction. - metop as above - continue low dose losartan 12.5mg daily, ok per nephro - volume management per PD ESRD (end stage renal disease) ([facility]/HCC) ([facility]) Assessment & Plan - Renal consulted, s/p CRRT in the ICU now back on PD. - Continue vitamins for renal bone mineral disease - continue phoslo Type 1 diabetes mellitus ([facility]) Assessment & Plan A1c well controlled on admission. He uses an insulin pump at home, since admission has been followed by endocrine service on basal bolus regimen with NPH for PD/hyperglycemic episodes. Hospital course has been c/b by both hypo and hyperglycemia intermittently. - endo consulted, appreciate recs -- anticipate resuming home insulin pump today - basal bolus regimen (if no insulin pump) lantus 35 qAM premeal lispro 10u Continue resistant SSI increase NPH 45u before PD * NSTEMI (non-ST elevated myocardial infarction) (CMS/HCC) (HCC) Assessment & Plan With recurrent chest pain post-cath. He has multiple risk factors for CAD, now s/p complex PCI to LCx and OM bifurcation with MARIELLA, though still with significant residual disease. CP free since 06/24. - Continue DAPT with aspirin, Plavix and atorvastatin - continue home imdur per cards, holding ranolazine in the setting of hypotension - metop, ARB as above - continue tele Anemia Assessment & Plan Stable, likely 2/2 anemia from ESRD, no evidence of bleeding. Underwent CT c/a/p without internal hematoma. - Monitor and trend Hb. - empirically started on BID PPI while in ICU with concern for ?bleeding --> has been on for >2 weeks, decreased to daily Acute hypoxemic respiratory failure (HCC) Assessment & Plan Secondary to ACS and flash pulmonary edema, since resolved and extubated on 06/19. Patient passed barium swallow on 06/21. Currently on RA. Cardiogenic shock (HCC) Assessment & Plan Secondary to NSTEMI, s/p Impella since removed on 06/10. Resolved. Post-acute planning: - inpatient acute rehab per PT recs, CM aware and searching for facilities Progress Notes by Arleen Andre MD at 06/27/2022 3:50 PM Version 1 of 1 Author: Arleen Andre MD Specialty: Nephrology, Internal Medicine Author Type: Physician Filed: 06/27/2022 8:17 PM Date of Service: 06/27/2022 3:50 PM Status: Signed Factory Supervisor: Arleen Andre MD (Physician) ASSESSMENT AND RECOMMENDATIONS ESRD: He is doing well on the current PD regimen. Ultrafilters approximately 0405-0841 ml/day. Continue current regimen Hypokalemia: Start Kcl 20 mEq po bid Hyperphosphatemia: Pt is on calcium acetate but has to be given with meals. Please change to 667 mg2 tabs tid with meals instead of qid Anemia of ESRD: Please start Epo 4000 units 3 times/week. NEPHROLOGY PROCEDURE NOTE Date of Service: 06/27/2022 I saw and evaluated the patient during PD. Indication was ESRD. My evaluation during the procedure showed the following: Dialysis Type: Continuous Cycling Peritoneal Dialysis Machine Type: [facility] Solution: Dextrose 2.5% in 5000 mL (+ 7.5% last fill) Dwell Time (min): 77 min Drain Time (min): 39 min Initial Drain Volume (mL): 690 mL Last Fill Volume (mL): 785 mL Fill Volume In (mL): 72609 mL Effluent Volume Out (mL): 29292 ml Balance This Exchange (mL): 1944 mL Temp: [36.6 ??C (97.9 ??F)-37.2 ??C (99 ??F)] 36.8 ??C (98.2 ??F) Pulse: [69-76] 70 BP: (92-117)/(36-73) 98/48 Resp: [18] 18 SpO2: [94 %-99 %] 98 % FiO2 (%): [30 %] 30 % Vitals: 06/27/22 0937 06/27/22 1000 06/27/22 1021 06/27/22 1446 BP: 107/53 108/63 101/58 98/48 BP Location: Right arm Right arm Right arm Right arm Patient Position: Lying Sitting Sitting Lying;HOB 30 degrees Pulse: 75 76 74 70 Resp: 18 Temp: 36.8 ??C (98.2 ??F) TempSrc: Oral SpO2: 95% 98% 97% 98% Weight: Height: PD CATHETER: PD Catheter Site: LLQ PD Site Assessment: other findings scaly skin around the site Other findings: pleasant, conversing appropriately. Mild peripheral edema I/O last 2 completed shifts: In: 68885 [P.O.:440; Other:76938] Out: 55343 [Urine:300; Other:08285] I have reviewed current medications and the following labs. aspirin, 81 mg, oral, Daily atorvastatin, 80 mg, oral, Daily calcitRIOL, 0.25 mcg, oral, Daily calcium acetate(phosphat bind), 667 mg, oral, QID clopidogreL, 75 mg, oral, Daily ezetimibe, 10 mg, oral, Daily heparin, 5,000 Units, subcutaneous, Q8H ASHLEY INSULIN PUMP REFILL lispro, 300 Units, other, Once isosorbide mononitrate ER, 30 mg, oral, Daily losartan, 12.5 mg, oral, Daily metoprolol tartrate, 25 mg, oral, BID pantoprazole DR, 40 mg, oral, Daily polyvinyl alcohol-povidone, 1 drop, each eye, QID [Held by Provider] ranolazine ER, 500 mg, oral, BID peritoneal fluid with or without additives for CCPD, peritoneal fluid with or without additives for CCPD, peritoneal fluid with or without additives for CCPD, peritoneal fluid with or without additives for CAPD, INSULIN PUMP - insulin lispro (HUMALOG), 0-25 Units Recent Labs Lab Units 06/27/22 0351 06/26/22 0323 06/24/22 0410 WBC K/cumm 3.8 4.1 4.3 HEMOGLOBIN g/dL 7.5* 7.6* 7.9* PLATELETS K/cumm 294 250 206 Recent Labs Lab Units 06/27/22 0351 06/26/22 0323 06/25/22 0436 06/23/22 1435 06/23/22 1401 06/23/22 0421 06/22/22 2128 06/22/22 1521 06/21/22 2155 06/21/22 0838 SODIUM mmol/L 132* 134* 135 < > 136 -- -- 138 136 139 POTASSIUM PLASMA mmol/L 3.1* 3.6 3.9 < > 3.4 -- -- 3.7 4.0 4.0 CHLORIDE mmol/L 89* 91* 93* < > 96* -- -- 99 98 101 CO2 mmol/L 26 26 28 < > 25 -- -- 27 24 27 BUN SERUM mg/dL 46* 47* 44* < > 45* -- -- 42* 41* 36* CREATININE mg/dL 10.21* 10.28* 9.57* < > 8.21* -- -- 7.25* 6.03* 5.26* ALBUMIN g/dL -- -- -- -- -- -- -- 2.9* 2.7* 2.7* CALCIUM mg/dL 8.4* 8.5 8.6 < > 8.3* -- -- 8.6 8.4* 8.4* MAGNESIUM mg/dL -- -- -- -- 2.8* 2.9* -- 2.9* 2.8* 2.8* PHOSPHORUS PLASMA mg/dL -- -- 7.9* -- 5.2* -- 5.8* -- 4.8* -- < > = values in this interval not displayed. Lab Results Component Value Date CALCIUM 8.4 (L) 06/27/2022 CAION 4.62 06/07/2022 PHOS 7.9 (H) 06/25/2022 Lab Results Component Value Date IRON 50 06/07/2022 TIBC 130 (L) 06/07/2022 TRANSFERSAT 38 06/07/2022 FERRITIN 2,062 (H) 06/07/2022 Arleen Andre MD publishing systems analyst Division of Nephrology Progress Notes by Frank Bowers MD at 06/28/2022 3:30 PM Version 1 of 1 Author: Frank Bowers MD Specialty: Internal Medicine Author Type: Physician Filed: 06/28/2022 3:30 PM Date of Service: 06/28/2022 3:30 PM Status: Signed Factory Supervisor: Frank Bowers MD (Physician) Daily Progress Note Division of Hospital Medicine Name: Adelia Garvin Jr. Today: June 28, 2022 : 1970 Age: 51 y.o. male Admit: 06/04/2022 Bed: [id number] Subjective Chief complaint: NSTEMI Interval History: Pt feeling well, he has no complaints currently other than some fatigue and generalized weakness Objective Medications: Scheduled: aspirin, 81 mg, oral, Daily atorvastatin, 80 mg, oral, Daily calcitRIOL, 0.25 mcg, oral, Daily calcium acetate(phosphat bind), 667 mg, oral, QID clopidogreL, 75 mg, oral, Daily ezetimibe, 10 mg, oral, Daily gentamicin, , topical, Daily heparin, 5,000 Units, subcutaneous, Q8H ASHLEY isosorbide mononitrate ER, 30 mg, oral, Daily losartan, 12.5 mg, oral, Daily metoprolol tartrate, 25 mg, oral, BID pantoprazole DR, 40 mg, oral, Daily polyvinyl alcohol-povidone, 1 drop, each eye, QID [Held by Provider] ranolazine ER, 500 mg, oral, BID Infusions: peritoneal fluid with or without additives for CCPD, peritoneal fluid with or without additives for CCPD, peritoneal fluid with or without additives for CCPD, peritoneal fluid with or without additives for CCPD, INSULIN PUMP - insulin lispro (HUMALOG), 0-25 Units PRN: acetaminophen albuterol HFA dextrose OR dextrose dextrose 5% water dextrose 5% water fluticasone propionate glucagon insulin lispro lidocaine nitroglycerin ondansetron ODT OR ondansetron ramelteon Vitals: 24hr Min/Max: Temp Min: 36.4 ??C (97.5 ??F) Max: 36.7 ??C (98.1 ??F) Pulse Min: 70 Max: 73 BP Min: 124/62 Max: 125/59 Resp Min: 16 Max: 18 SpO2 Min: 94 % Max: 98 % Most Recent: Vitals: 06/28/22 0823 BP: 125/59 Pulse: 71 Resp: 18 Temp: 36.4 ??C (97.5 ??F) SpO2: 97% Intake/Output Summary (Last 24 hours) at 06/28/2022 1521 Last data filed at 06/28/2022 1300 Gross per 24 hour Intake 05343 ml Output 63501 ml Net -851 ml Physical Exam Constitutional: NAD, well developed, well nourished Eyes: PERRL, EOMI, anicteric ENT: NCAT, oropharynx normal, moist mucus membranes Lungs: Clear to auscultation in all lung charles, unlabored Cardiovascular: RRR, normal S1 and S2, no murmurs, no JVD GI: Soft, non-tender, non-distended, bowel sounds +, no organomegaly Skin: No new rashes, lesions or bruises on visible skin Extremities: Normal without edema or cyanosis Lymph: No cervical, supraclavicular, axillary or inguinal adenopathy Neurologic: AOx4, CNII-XII intact, normal strength and sensation Psychiatric: Normal affect and mood I have reviewed the patient's vital signs. Lab/Diagnostic Review: Recent Results (from the past 36 hour(s)) Basic metabolic panel Collection Time: 06/27/22 3:51 AM Result Value Ref Range Sodium 132 (L) 135 - 145 mmol/L Potassium, pl 3.1 (L) 3.3 - 4.9 mmol/L Chloride 89 (L) 97 - 110 mmol/L CO2 26 22 - 32 mmol/L Anion gap 17 (H) 2 - 15 mmol/L BUN 46 (H) 8 - 25 mg/dL Creatinine 10.21 (H) 0.80 - 1.30 mg/dL Glucose 274 (H) 70 - 199 mg/dL Calcium 8.4 (L) 8.5 - 10.3 mg/dL CBC without differential Collection Time: 06/27/22 3:51 AM Result Value Ref Range WBC 3.8 3.8 - 9.9 K/cumm Hgb 7.5 (L) 13.0 - 17.5 g/dL Hct 22.8 (L) 38.9 - 50.3 % Plt 294 150 - 400 K/cumm MPV 10.0 9.1 - 12.3 fL RBC 2.49 (L) 4.30 - 5.80 M/cumm MCV 91.6 81.3 - 96.4 fL MCH 30.1 27.1 - 33.3 pg MCHC 32.9 32.3 - 35.7 g/dL RDW CV 17.5 (H) 11.1 - 14.9 % RDW SD 57.9 (H) 35.7 - 48.1 fL NRBC abs 0.00 0.00 - 0.01 K/cumm eGFR Collection Time: 06/27/22 3:51 AM Result Value Ref Range eGFR 6 (L) 90 - 130 mL/min/1.73 m2 POCT glucose Collection Time: 06/27/22 7:54 AM Result Value Ref Range Glucose, POC 350 (H) 70 - 199 mg/dL POCT glucose Collection Time: 06/27/22 11:37 AM Result Value Ref Range Glucose, POC 228 (H) 70 - 199 mg/dL Glucose comment 1 Glu2: RN/MD Notified POCT glucose Collection Time: 06/27/22 4:54 PM Result Value Ref Range Glucose, POC 143 70 - 199 mg/dL POCT glucose Collection Time: 06/27/22 7:51 PM Result Value Ref Range Glucose, POC 199 70 - 199 mg/dL POCT glucose Collection Time: 06/28/22 7:41 AM Result Value Ref Range Glucose, POC 68 (L) 70 - 199 mg/dL Glucose comment 1 Glu2: RN/MD Notified POCT glucose Collection Time: 06/28/22 8:02 AM Result Value Ref Range Glucose, POC 75 70 - 199 mg/dL POCT glucose Collection Time: 06/28/22 8:20 AM Result Value Ref Range Glucose, POC 95 70 - 199 mg/dL POCT glucose Collection Time: 06/28/22 8:37 AM Result Value Ref Range Glucose, POC 121 70 - 199 mg/dL POCT glucose Collection Time: 06/28/22 9:53 AM Result Value Ref Range Glucose, POC 181 70 - 199 mg/dL POCT glucose Collection Time: 06/28/22 11:42 AM Result Value Ref Range Glucose, POC 281 (H) 70 - 199 mg/dL Glucose comment 1 Glu2: RN/MD Notified I have reviewed the laboratory results. Imaging Results: FL Modified Barium Swallow W Video Narrative: EXAMINATION: MODIFIED BARIUM SWALLOW HISTORY: Concern for dysphagia. TECHNIQUE: This procedure was completed in conjunction with a Speech Language Pathologist. The patient was given barium of multiple different consistencies to swallow. Video fluoroscopy was employed during the exam. FINDINGS: Oral-pharyngeal swallow function is mildly impaired. Penetration: Yes There is penetration of thin liquids and nectar thick liquids. Penetration is sensed. The penetrated material is cleared. Aspiration: No Residue:Yes There is oral-pharyngeal residue of purees and solids. Residue is not sensed. The residual material is cleared. Other comments: None Impression: The swallowing mechanism is abnormal; see above comments. Please refer to the Speech Pathology procedure note for safe swallow recommendations as well as additional information regarding the oral-pharyngeal swallow function, plan of care, and recommended follow up. Dictated by: Adam Aiken M.D. The radiology attending physician has personally reviewed this study, and had reviewed and/or edited this written report and agrees with it. Electronically signed by: Félix Chahal M.D. Assessment/Plan Cardiogenic shock ([facility]) Assessment & Plan Secondary to NSTEMI, s/p Impella since removed on 06/10. Resolved. * NSTEMI (non-ST elevated myocardial infarction) ([facility]) ([facility]) Assessment & Plan With recurrent chest pain post-cath. He has [...] dc tomorrow as pt has been accepted ESRD (end stage renal disease) ([facility]) ([facility]) Assessment & Plan - Renal consulted, s/p CRRT in the ICU now back on PD. Tolerated well and nephrology following - Trialysis catheter removed - Continue vitamins for renal bone mineral disease. Type 1 diabetes mellitus ([facility]) Assessment & Plan A1c well controlled on admission. He uses [...] resistant SSI increase NPH 45u before PD Atrial fibrillation ([facility]) ([facility]) Assessment & Plan Converted to NSR overnight on 06/24. CHADsVASc of 4 not on anticoagulation prior to admission. - cardiology consulted - recommended ongoing rate control - holding off on a/c with high risk for bleeding while on DAPT - reduced metop to 25mg BID in the setting of hypotension, HR 70s NSR Acute on chronic HFrEF (heart failure with reduced ejection fraction) (HCC) Assessment & Plan C/b cardiogenic shock requiring impella in the setting of cath and AHRF 2/2 pulmonary edema, now resolved. TTE demonstrating recovered EF 65% with grade I diastolic dysfunction. - metop as above - continue low dose losartan 12.5mg daily, ok per nephro. Tolerating well - volume management per PD Anemia Assessment & Plan Stable, likely 2/2 anemia from ESRD, no evidence of bleeding. Underwent CT c/a/p without internal hematoma. - Monitor and trend Hb. Acute hypoxemic respiratory failure (HCC) Assessment & Plan Secondary to ACS and flash pulmonary edema, since resolved and extubated on 06/19. Patient passed barium swallow on 06/21. Progress Notes by Frank Bowers MD at 06/29/2022 10:12 AM Version 1 of 1 Author: Frank Bowers MD Specialty: Internal Medicine Author Type: Physician Filed: 06/29/2022 10:12 AM Date of Service: 06/29/2022 10:12 AM Status: Signed Factory Supervisor: Frank Bowers MD (Physician) Daily Progress Note Division of Hospital Medicine Name: Adelia Garvin Jr. Today: June 29, 2022 : 1970 Age: 51 y.o. male Admit: 06/04/2022 Bed: [id number] Subjective Chief complaint: NSTEMI Interval History: Pt feeling well this am, has no acute complaints Objective Medications: Scheduled: aspirin, 81 mg, oral, Daily atorvastatin, 80 mg, oral, Daily calcitRIOL, 0.25 mcg, oral, Daily calcium acetate(phosphat bind), 667 mg, oral, QID clopidogreL, 75 mg, oral, Daily ezetimibe, 10 mg, oral, Daily gentamicin, , topical, Daily heparin, 5,000 Units, subcutaneous, Q8H ASHLEY isosorbide mononitrate ER, 30 mg, oral, Daily losartan, 12.5 mg, oral, Daily metoprolol tartrate, 25 mg, oral, BID pantoprazole DR, 40 mg, oral, Daily polyvinyl alcohol-povidone, 1 drop, each eye, QID Infusions: INSULIN PUMP - insulin lispro (HUMALOG), 0-25 Units PRN: acetaminophen albuterol HFA dextrose OR dextrose dextrose 5% water dextrose 5% water fluticasone propionate glucagon insulin lispro lidocaine nitroglycerin ondansetron ODT OR ondansetron ramelteon Vitals: 24hr Min/Max: Temp Min: 36.8 ??C (98.2 ??F) Max: 37.2 ??C (99 ??F) Pulse Min: 70 Max: 73 BP Min: 98/54 Max: 124/52 Resp Min: 18 Max: 20 SpO2 Min: 93 % Max: 99 % Most Recent: Vitals: 06/29/22 0815 BP: Pulse: 71 Resp: Temp: SpO2: Intake/Output Summary (Last 24 hours) at 06/29/2022 1010 Last data filed at 06/29/2022 0815 Gross per 24 hour Intake 48942 ml Output 94937 ml Net -664 ml Physical Exam Constitutional: NAD, well developed, well nourished Eyes: PERRL, EOMI, anicteric ENT: NCAT, oropharynx normal, moist mucus membranes Lungs: Clear to auscultation in all lung charles, unlabored Cardiovascular: RRR, normal S1 and S2, no murmurs, no JVD GI: Soft, non-tender, non-distended, PD catheter in place, insulin pump in place Skin: No new rashes, lesions or bruises on visible skin Extremities: Normal without edema or cyanosis Lymph: No cervical, supraclavicular, axillary or inguinal adenopathy Neurologic: AOx4, CNII-XII intact, normal strength and sensation Psychiatric: Normal affect and mood I have reviewed the patient's vital signs. Lab/Diagnostic Review: Recent Results (from the past 36 hour(s)) POCT glucose Collection Time: 06/28/22 7:41 AM Result Value Ref Range Glucose, POC 68 (L) 70 - 199 mg/dL Glucose comment 1 Glu2: RN/MD Notified POCT glucose Collection Time: 06/28/22 8:02 AM Result Value Ref Range Glucose, POC 75 70 - 199 mg/dL POCT glucose Collection Time: 06/28/22 8:20 AM Result Value Ref Range Glucose, POC 95 70 - 199 mg/dL POCT glucose Collection Time: 06/28/22 8:37 AM Result Value Ref Range Glucose, POC 121 70 - 199 mg/dL POCT glucose Collection Time: 06/28/22 9:53 AM Result Value Ref Range Glucose, POC 181 70 - 199 mg/dL POCT glucose Collection Time: 06/28/22 11:42 AM Result Value Ref Range Glucose, POC 281 (H) 70 - 199 mg/dL Glucose comment 1 Glu2: RN/MD Notified POCT glucose Collection Time: 06/28/22 3:33 PM Result Value Ref Range Glucose, POC 299 (H) 70 - 199 mg/dL COVID-19 Coronavirus RNA Nasopharyngeal Collection Time: 06/28/22 3:46 PM Specimen: Nasopharyngeal Result Value Ref Range COVID-19 RNA Negative Negative POCT glucose Collection Time: 06/28/22 8:08 PM Result Value Ref Range Glucose, POC 260 (H) 70 - 199 mg/dL POCT glucose Collection Time: 06/29/22 7:43 AM Result Value Ref Range Glucose, POC 262 (H) 70 - 199 mg/dL Glucose comment 1 Glu2: RN/MD Notified I have reviewed the laboratory results. Imaging Results: FL Modified Barium Swallow W Video Narrative: EXAMINATION: MODIFIED BARIUM SWALLOW HISTORY: Concern for dysphagia. TECHNIQUE: This procedure was completed in conjunction with a Speech Language Pathologist. The patient was given barium of multiple different consistencies to swallow. Video fluoroscopy was employed during the exam. FINDINGS: Oral-pharyngeal swallow function is mildly impaired. Penetration: Yes There is penetration of thin liquids and nectar thick liquids. Penetration is sensed. The penetrated material is cleared. Aspiration: No Residue:Yes There is oral-pharyngeal residue of purees and solids. Residue is not sensed. The residual material is cleared. Other comments: None Impression: The swallowing mechanism is abnormal; see above comments. Please refer to the Speech Pathology procedure note for safe swallow recommendations as well as additional information regarding the oral-pharyngeal swallow function, plan of care, and recommended follow up. Dictated by: Adma Aiken M.D. The radiology attending physician has personally reviewed this study, and had reviewed and/or edited this written report and agrees with it. Electronically signed by: Félix Chahal M.D. I have independently reviewed and interpreted the following Bg better controlled, some low 200 Negative covid test. Assessment/Plan Cardiogenic shock (HCC) Assessment & Plan Secondary to NSTEMI, s/p Impella since removed on 06/10. Resolved. * NSTEMI (non-ST elevated myocardial infarction) (CMS/HCC) ([facility]) Assessment & Plan With recurrent chest pain post-cath. He has [...] Pt overall improving, DC to rehab today ESRD (end stage renal disease) ([facility]) ([facility]) Assessment & Plan - Renal consulted, s/p CRRT in the ICU now back on PD. Tolerated well and nephrology following - Trialysis catheter removed - Continue vitamins for renal bone mineral disease. Type 1 diabetes mellitus ([facility]) Assessment & Plan A1c well controlled on admission. He uses [...] SENSITIVITY: 1:25 IAT: 4 hours TARGET: 120 If pump fails, give lispro 4 units once and restart insulin pump. If pump supplies are not available: - Lantus 35 units qAM - Humalog 10 units with meals - Continue resistant correction scale TID/HS/0200 - NPH 45 units with start of peritoneal dialysis session Atrial fibrillation ([facility]/HCC) ([facility]) Assessment & Plan Converted to NSR overnight on 06/24. CHADsVASc of 4 not on anticoagulation prior to admission. - cardiology consulted - recommended ongoing rate control - holding off on a/c with high risk for bleeding while on DAPT - reduced metop to 25mg BID in the setting of hypotension, HR 70s NSR Acute on chronic HFrEF (heart failure with reduced ejection fraction) (HCC) Assessment & Plan C/b cardiogenic shock requiring impella in the setting of cath and AHRF 2/2 pulmonary edema, now resolved. TTE demonstrating recovered EF 65% with grade I diastolic dysfunction. - metop as above - continue low dose losartan 12.5mg daily, ok per nephro. Tolerating well - volume management per PD Anemia Assessment & Plan Stable, likely 2/2 anemia from ESRD, no evidence of bleeding. Underwent CT c/a/p without internal hematoma. - Monitor and trend Hb. Acute hypoxemic respiratory failure (HCC) Assessment & Plan Secondary to ACS and flash pulmonary edema, since resolved and extubated on 06/19. Patient passed barium swallow on 06/21. Discharge Summary - Encounter Notes Notes from 06/27/22 through 06/29/22 Discharge Summary by Frank Bowers MD at 06/29/2022 10:13 AM Version 1 of 1 Author: Frank Bowers MD Specialty: Internal Medicine Author Type: Physician Filed: 06/29/2022 10:23 AM Date of Service: 06/29/2022 10:13 AM Status: Signed Factory Supervisor: Frank Bowers MD (Physician) Inpatient Discharge Summary BRIEF OVERVIEW Admitting Provider: Catherine Adams MD Discharge Provider: Frank Bowers MD Primary Care Physician at Discharge: Aditya Castro MD [phone] Admission Date: 06/04/2022 Discharge Date: 06/29/2022 Admission Location: [facility] Problems/Diagnoses: Principal Problem: NSTEMI (non-ST elevated myocardial infarction) ([facility]/HCC) ([facility]) Active Problems: Cardiogenic shock (HCC) Type 1 diabetes mellitus (HCC) ESRD (end stage renal disease) (CMS/HCC) (HCC) Acute hypoxemic respiratory failure (HCC) Anemia Acute on chronic HFrEF (heart failure with reduced ejection fraction) (HCC) Atrial fibrillation (CMS/HCC) (HCC) Resolved Problems: No resolved hospital problems. DETAILS OF HOSPITAL STAY Presenting Problem/History of Present Illness: As per Admission H&P AC), HTN, CAD s/p stent 04/06 and 3 stent 12/07, T1DM (insulin pump at home), ESRD on PD, HLD, GERD, hyperparathyroidism, DDD, OA, gout, BEN on CPAP initially presented to [facility] for n/v andchest pain, transferred to [facility] for LHC/PCI, now presenting to CCU s/p complex PCI with impella and intubated. At the OSH he presented with 3d generalized weakness, chills, ROONEY, n/v, chest pain relieved by sublingual ntg. His labs were notable for trop 1.0-->1.09-->0.729, BNP 79794. He had a CT CAP showing cholelithiasis and likely PNA. RUQUS showed distended gallbladder with gallstones and gallbladder wall thickening, recommended HIDA scan. He was treated with ctx/azithromycin. He was started on a heparin gtt, cath 06/03 showed previous PCI to proximal and distal right coronary patent, 99% ostialcircumflex stenosis as well as 90% circumflex lesion after origin of largest OM branch, mild diffuse disease in LAD which does not appear to be flow limiting. Recommended PCI of left circumflex as optimal treatment, prompting transfer to [place]. He arrived at [place] 06/05. EKG showed sinus bradycardia, 1st deg AV block. Overnight, ACT was called for substernal chest pressure and hypoxemia, he was placed on BiPAP with improvement in oxygen saturation and transferred to the MICU, where he was placed on AVAPS. CXR showed significantly worsened pulmonary edema. Trop 4797 -> 4266 in the MICU, ekg unchanged from prior. NT ProBNP 15,490. Lactate 2.0. NT ProBNP 15,490. Lactate 2.0. Started on kaylah for cholecystitis. He was continued on heparin gtt, started on nitro gtt for BP control. He was weaned to nasal cannula. Underwent complex PCI 06/07, PCI revealed ostial circ lesion of 90%, large OM with 70% narrowing. Patient became hypotensive and hypoxemic requiring levo and epi gtt. The patient was intubated. The left dominant circumflex and OM were then stented. Impella was inserted. A swan liv catheter and L IJ trialysis were also placed. Arrived to CCU on ventilator settings 34/500/90/15, not on pressors, sedated with propofol. Impellaat p9. The trialysis line that was inserted had too long of a sheath so had to be exchanged. Hospital Course: Adelia Garvin Jr. is 51 y.o. male with history of DMI on insulin pump c/b ESRD on PD and CAD s/pPCI, HFrEF and Afib not on AC admitted on 06/04/2022 from OSH for complex PCI. Patient initially presented with chest pain and nausea, workup showed Trop peak of 1.09, LHC on 06/03 at OSH showed 90%+ostial LCx and OM lesion and accepted by cardiology for complex PCI. Patient underwent PCI on 06/07with successful placement of MARIELLA to LCx and OM bifurcation, procedure was complicated by cardiogenic shock requiring Impella and respiratory failure requiring intubation. Temp Trialysis placed and patient was placed on CRRT, patient received supportive care and weaned on Impella on 06/10 and extubated on 06/19 and transferred to the floor on 06/22. * NSTEMI (non-ST elevated myocardial infarction) (CMS/HCC) ([facility]) With interventions described above. Post-transfer and post-cath, he developed recurrent substernal chest pain with no EKG changes. Per cardiology, despite being s/p complex PCI to LCx and OM bifurcation with MARIELLA, he still has significant residual disease. He was treated with uptrending doses of metoprolol for rate controlled AFib, imdur and good control of chest pain prior to discharge. He was continued on DAPT and atorvastatin as well. Ranolazine was held on discharge given pressure tolerance. Atrial fibrillation (CMS/HCC) ([facility]) He was in atrial fibrillation on transfer to medicine with rates ~90-110s. Metoprolol was uptitrated for improved rate control, ultimately his rhythm converted to NSR overnight on 06/24. Metoprolol was de-escalated for sinus bradycardia; stable on metop 25 BID at discharge. CHADsVASc=4, but he was not on anticoagulation prior to admission. While on DAPT, he was not started on anticoagulation during this hospitalization either with high HAS-BLED score. Acute on chronic HFrEF (heart failure with reduced ejection fraction) ([facility]) He developed cardiogenic shock requiring impella in the setting of cath c/b AHRF 2/2 pulmonary edema. Post-cath, TTE demonstrated recovered EF 65% with grade I diastolic dysfunction. Volume was managed with CRRT in ICU, then by resumption of PD on the medical floor. In discussion with nephrology, low dose losartan was started for GDMT in addition to metoprolol. ESRD (end stage renal disease) ([facility]) ([facility]) Renal consulted on admission with history of ESRD on PD. While in ICU, temporary dialysis catheter was placed to facilitate CRRT for volume removal. Upon transfer to the floor, PD was continued and tolerated well. He was continued on his home vitamins for renal bone mineral disease and phoslo. Trialysis removed 06/25. Type 1 diabetes mellitus ([facility]) Prior to admission, his A1c was well controlled on home insulin pump. The patient didn't bring the pump to the hospital, and while critically ill/on CRRT he was initiated on basal/bolus insulin regimen in conjunction with the endocrine service. He had both hyperglycemic and hypoglycemic episodes onthis regimen 2/2 complicated regimen related to PD. Patient was resumed on home insulin pump on 06/27 with improved control. INSULIN PUMP SETTINGS per endocrinology Continue Omnipod 5 insulin pump with Dexcom G6 CGM at home settings: TIME BASAL RATE TOTAL BASAL DAILY DOSE: 65.85 0330 1.7 units/hour 0800 0.8 units/hour 2000 5.8 units/hour ICR: 1:6.5 SENSITIVITY: 1:25 IAT: 4 hours TARGET: 120 If pump fails, give lispro 4 units once and restart insulin pump. If pump supplies are not available: - Lantus 35 units qAM - Humalog 10 units with meals - Continue resistant correction scale TID/HS/0200 - NPH 45 units with start of peritoneal dialysis session Acute hypoxemic respiratory failure (HCC) Secondary to ACS and flash pulmonary edema, since resolved with CRRT and extubated on 06/19. Patient passed barium swallow on 06/21. Remained on RA. Active Issues Requiring Follow-up: Rehab Endocrine follow up in 1-2 weeks for pump evaluation Test Results Pending at Discharge: Pending Labs Order Current Status Infection Prevention MRSA Only (Staphylococcus aureus) Culture Nasal In process Pneumonia PCR with aerobic culture and Gram stain Tracheal aspirate In process Type and screen In process Operative Procedures Performed: Procedure(s): REMOVE PERC ARTERIAL VAD (IMPELLA), DIFFERENT SESSION [id number] Other Procedures: Pertinent Test Results: See hospital course Discharge Details Physical Exam at Discharge: Discharge Condition: stable Pulse: 71 Resp: 18 BP: 124/52 Temp: 36.8 ??C (98.2 ??F) Weight: 118.1 kg (260 lb 6.4 oz) Pertinent Exam Findings at Discharge: See note from day of discharge Discharge Disposition: Inpatient Rehab Code Status at Discharge: Full Discharge Instructions: Mr. Adelia Garvin, You were admitted to the hospital for chest pain, and you were seen by our cardiology specialists where you received a new stent placed. As you have improved and are tolerating your insulin pump wellas well as your dialysis, you are stable to be discharged to the rehab facility. Discharge Medications: Current Medications TAKE these medications amLODIPine 10 mg tablet Take 10 mg by mouth daily Commonly known as: NORVASC aspirin 81 mg enteric coated tablet Take 1 tablet by mouth daily atorvastatin 80 mg tablet Take 80 mg by mouth daily Commonly known as: LIPITOR BD Ultra-Fine Short Pen Needle 31 gauge x 5/16 needle U ONE PEN NEEDLE TO INJ INSULIN SC QID Generic drug: pen needle, diabetic calcitRIOL 0.25 mcg capsule Take 0.25 mcg by mouth daily Commonly known as: ROCALTROL calcium acetate(phosphat bind) 667 mg capsule Take 667 mg by mouth 4 (four) times a day (with meals and nightly) With meals and snack Commonly known as: PHOSLO cetirizine 10 mg tablet Take 10 mg by mouth daily as needed for allergies Commonly known as: ZyrTEC cholecalciferol 2000 unit tablet Take 50,000 Units by mouth once a week Commonly known as: VITAMIN D-3 cloNIDine 0.1 mg tablet Take 0.2 mg by mouth every 8 (eight) hours Commonly known as: CATAPRES clopidogreL 75 mg tablet TAKE 1 TABLET BY MOUTH DAILY Commonly known as: PLAVIX Colcrys 0.6 mg tablet Take one tablet po every Monday, Monday and Monday. Generic drug: colchicine doxycycline monohydrate 50 mg tablet Take 50 mg by mouth 2 (two) times a day Commonly known as: ADOXA EZETIMIBE ORAL Take 10 mg by mouth daily furosemide 80 mg tablet Take 80 mg by mouth 2 (two) times a day Commonly known as: LASIX hydrALAZINE 100 mg tablet TAKE 1 TABLET BY MOUTH EVERY 8 HOURS Commonly known as: APRESOLINE insulin aspart U-100 100 unit/mL cartridge Inject under the skin Basal rate 1200 am to 0500 am 5.25; from 5 am to 8 pm 1.8; from 8pm to 12 am 5.5 Commonly known as: NovoLOG isosorbide mononitrate ER 30 mg 24 hr tablet TAKE 1 TABLET BY MOUTH EVERY DAY Commonly known as: IMDUR meloxicam 7.5 mg tablet Take 7.5 mg by mouth 2 (two) times a day Commonly known as: MOBIC metoprolol 100 mg tablet Take 100 mg by mouth every 12 (twelve) hours Commonly known as: LOPRESSOR omeprazole 20 mg capsule Take 20 mg by mouth daily Commonly known as: PriLOSEC ranolazine ER 500 mg 12 hr tablet Take 500 mg by mouth 2 (two) times a day Commonly known as: RANEXA UNABLE TO FIND Zalacyclovir take one tablet three times daily Outpatient Follow-Up: Immunizations Name Date Influenza, Quadrivalent, Split, Preservative Free, Intramuscular 06/04/22 Suzan (J&J) SARS-CoV-2 Vaccination 11/04/20 Moderna SARS-CoV-2 Vaccination (12+ YRS) 09/21/21 Generated by [id number] at 06/29/22 11:31 AM Page OR ART DIRECTOR * Assessment & Plan Note - Frank Bowers MD - 06/29/2022 10:12 AM SENIOR ART DIRECTOR Associated Problem(s): Atrial fibrillation (CMS/HCC) (HCC) Converted to NSR overnight on 06/24. CHADsVASc of 4 not on anticoagulation prior to admission. - cardiology consulted - recommended ongoing rate control - holding off on a/c with high risk for bleeding while on DAPT - reduced metop to 25mg BID in the setting of hypotension, HR 70s NSR OR ART DIRECTOR * Assessment & Plan Note - Frank Bowers MD - 06/29/2022 10:12 AM SENIOR ART DIRECTOR Associated Problem(s): Acute on chronic HFrEF (heart failure with reduced ejection fraction) ([facility]) C/b cardiogenic shock requiring impella in the setting of cath and AHRF 2/2 pulmonary edema, now resolved. TTE demonstrating recovered EF 65% with grade I diastolic dysfunction. - metop as above - continue low dose losartan 12.5mg daily, ok per nephro. Tolerating well - volume management per PD OR ART DIRECTOR * Assessment & Plan Note - Frank Bowers MD - 06/29/2022 10:12 AM SENIOR ART DIRECTOR Associated Problem(s): Anemia Stable, likely 2/2 anemia from ESRD, no evidence of bleeding. Underwent CT c/a/p without internal hematoma. - Monitor and trend Hb. OR ART DIRECTOR * Assessment & Plan Note - Frank Bowers MD - 06/29/2022 10:12 AM SENIOR ART DIRECTOR Associated Problem(s): Acute hypoxemic respiratory failure (HCC) Secondary to ACS and flash pulmonary edema, since resolved and extubated on 06/19. Patient passed barium swallow on 06/21. OR ART DIRECTOR * Assessment & Plan Note - Frank Bowers MD - 06/29/2022 10:12 AM SENIOR ART DIRECTOR Associated Problem(s): ESRD (end stage renal disease) ([facility]/HCC) ([facility]) - Renal consulted, s/p CRRT in the ICU now back on PD. Tolerated well and nephrology following - Trialysis catheter removed - Continue vitamins for renal bone mineral disease. OR ART DIRECTOR * Assessment & Plan Note - Frank Bowers MD - 06/29/2022 10:11 AM SENIOR ART DIRECTOR Associated Problem(s): Type 1 diabetes mellitus (HCC) A1c well controlled on admission. He uses [...] units with start of peritoneal dialysis session OR ART DIRECTOR * Assessment & Plan Note - Frank Bowers MD - 06/29/2022 10:11 AM SENIOR ART DIRECTOR Associated Problem(s): Cardiogenic shock (HCC) Secondary to NSTEMI, s/p Impella since removed on 06/10. Resolved. OR ART DIRECTOR * Assessment & Plan Note - Frank Bowers MD - 06/29/2022 10:11 AM SENIOR ART DIRECTOR Associated Problem(s): NSTEMI (non-ST elevated myocardial infarction) (CMS/HCC) (HCC) With recurrent chest pain post-cath. He has [...] Pt overall improving, DC to rehab today OR ART DIRECTOR * Subjective & Objective - Frank Bowers MD - 06/29/2022 10:10 AM SENIOR ART DIRECTOR Daily Progress Note Division of [facility] Medicine Name: Adelia Garvin Jr. Today: June 29, 2022 : 1970 Age: 51 y.o. male Admit: 06/04/2022 Bed: [id number] Subjective Chief complaint: NSTEMI Interval History: Pt feeling well this am, has no acute complaints Objective Medications: Scheduled: aspirin, 81 mg, oral, Daily atorvastatin, 80 mg, oral, Daily calcitRIOL, 0.25 mcg, oral, Daily calcium acetate(phosphat bind), 667 mg, oral, QID clopidogreL, 75 mg, oral, Daily ezetimibe, 10 mg, oral, Daily gentamicin, , topical, Daily heparin, 5,000 Units, subcutaneous, Q8H ASHLEY isosorbide mononitrate ER, 30 mg, oral, Daily losartan, 12.5 mg, oral, Daily metoprolol tartrate, 25 mg, oral, BID pantoprazole DR, 40 mg, oral, Daily polyvinyl alcohol-povidone, 1 drop, each eye, QID Infusions: INSULIN PUMP - insulin lispro (HUMALOG), 0-25 Units PRN: acetaminophen albuterol HFA dextrose OR dextrose dextrose 5% water dextrose 5% water fluticasone propionate glucagon insulin lispro lidocaine nitroglycerin ondansetron ODT OR ondansetron ramelteon Vitals: 24hr Min/Max: Temp Min: 36.8 ??C (98.2 ??F) Max: 37.2 ??C (99 ??F) Pulse Min: 70 Max: 73 BP Min: 98/54 Max: 124/52 Resp Min: 18 Max: 20 SpO2 Min: 93 % Max: 99 % Most Recent: Vitals: 06/29/22 0815 BP: Pulse: 71 Resp: Temp: SpO2: Intake/Output Summary (Last 24 hours) at 06/29/2022 1010 Last data filed at 06/29/2022 0815 Gross per 24 hour Intake 30756 ml Output 85840 ml Net -664 ml Physical Exam Constitutional: NAD, well developed, well nourished Eyes: PERRL, EOMI, anicteric ENT: NCAT, oropharynx normal, moist mucus membranes Lungs: Clear to auscultation in all lung charles, unlabored Cardiovascular: RRR, normal S1 and S2, no murmurs, no JVD GI: Soft, non-tender, non-distended, PD catheter in place, insulin pump in place Skin: No new rashes, lesions or bruises on visible skin Extremities: Normal without edema or cyanosis Lymph: No cervical, supraclavicular, axillary or inguinal adenopathy Neurologic: AOx4, CNII-XII intact, normal strength and sensation Psychiatric: Normal affect and mood I have reviewed the patient's vital signs. Lab/Diagnostic Review: Recent Results (from the past 36 hour(s)) POCT glucose Collection Time: 06/28/22 7:41 AM Result Value Ref Range Glucose, POC 68 (L) 70 - 199 mg/dL Glucose comment 1 Glu2: RN/MD Notified POCT glucose Collection Time: 06/28/22 8:02 AM Result Value Ref Range Glucose, POC 75 70 - 199 mg/dL POCT glucose Collection Time: 06/28/22 8:20 AM Result Value Ref Range Glucose, POC 95 70 - 199 mg/dL POCT glucose Collection Time: 06/28/22 8:37 AM Result Value Ref Range Glucose, POC 121 70 - 199 mg/dL POCT glucose Collection Time: 06/28/22 9:53 AM Result Value Ref Range Glucose, POC 181 70 - 199 mg/dL POCT glucose Collection Time: 06/28/22 11:42 AM Result Value Ref Range Glucose, POC 281 (H) 70 - 199 mg/dL Glucose comment 1 Glu2: RN/MD Notified POCT glucose Collection Time: 06/28/22 3:33 PM Result Value Ref Range Glucose, POC 299 (H) 70 - 199 mg/dL COVID-19 Coronavirus RNA Nasopharyngeal Collection Time: 06/28/22 3:46 PM Specimen: Nasopharyngeal Result Value Ref Range COVID-19 RNA Negative Negative POCT glucose Collection Time: 06/28/22 8:08 PM Result Value Ref Range Glucose, POC 260 (H) 70 - 199 mg/dL POCT glucose Collection Time: 06/29/22 7:43 AM Result Value Ref Range Glucose, POC 262 (H) 70 - 199 mg/dL Glucose comment 1 Glu2: RN/MD Notified I have reviewed the laboratory results. Imaging Results: FL Modified Barium Swallow W Video Narrative: EXAMINATION: MODIFIED BARIUM SWALLOW HISTORY: Concern for dysphagia. TECHNIQUE: This procedure was completed in conjunction with a Speech Language Pathologist. The patient was given barium of multiple different consistencies to swallow. Video fluoroscopy was employed during the exam. FINDINGS: Oral-pharyngeal swallow function is mildly impaired. Penetration: Yes There is penetration of thin liquids and nectar thick liquids. Penetration is sensed. The penetrated material is cleared. Aspiration: No Residue:Yes There is oral-pharyngeal residue of purees and solids. Residue is not sensed. The residual material is cleared. Other comments: None Impression: The swallowing mechanism is abnormal; see above comments. Please refer to the Speech Pathology procedure note for safe swallow recommendations as well as additional information regarding the oral-pharyngeal swallow function, plan of care, and recommended follow up. Dictated by: Adam Aiken M.D. The radiology attending physician has personally reviewed this study, and had reviewed and/or edited this written report and agrees with it. Electronically signed by: Félix Chahal M.D. I have independently reviewed and interpreted the following Bg better controlled, some low 200 Negative covid test. OR ART DIRECTOR * Plan of Care - Manda Lake RN - 06/29/2022 9:17 AM CST Problem: Health Behavior: Goal: Understanding of discharge needs will improve Outcome: Progressing Problem: Lack of Knowledge: Goal: Ability to state ways to decrease the risk of falls will improve Outcome: Progressing Problem: Safety: Goal: Will remain free from falls Outcome: Progressing Goal: Will remain free from injury from falls Outcome: Progressing Goal: Will remain free from falls and injury in home environment Outcome: Progressing Problem: Lack of Knowledge: Goal: Knowledge of disease or condition and prescribed therapeutic regimen will improve Outcome: Progressing Problem: Coping: Goal: Level of anxiety will decrease Outcome: Progressing Problem: Sensory: Goal: Pain level will decrease Outcome: Progressing Problem: Lack of Knowledge: Goal: Ability to describe self-care measures that may prevent or decrease complications will improve Outcome: Progressing Goal: Knowledge of disease or condition will improve Outcome: Progressing Goal: Knowledge of the prescribed therapeutic regimen will improve Outcome: Progressing Goal: Knowledge of prevention and discharge planning will improve Outcome: Progressing Problem: Coping: Goal: Ability to adjust to condition or change in health will improve Outcome: Progressing Problem: Fluid Volume: Goal: Ability to maintain a balanced intake and output will improve Outcome: Progressing Problem: Health Behavior: Goal: Ability to identify and alter actions that are detrimental to health will improve Outcome: Progressing Goal: Ability to identify and utilize available resources and services will improve Outcome: Progressing Goal: Ability to manage health-related needs will improve Outcome: Progressing Problem: Nutritional: Goal: Maintenance of adequate nutrition will improve Outcome: Progressing Goal: Progress toward achieving an optimal weight will improve Outcome: Progressing Problem: Physical Regulation: Goal: Complications related to the disease process, condition or treatment will be avoided or minimized Outcome: Progressing Goal: Diagnostic test results will improve Outcome: Progressing Problem: Skin Integrity: Goal: Risk for impaired skin integrity will decrease Outcome: Progressing Problem: Lack of Knowledge: Goal: Ability to develop a pain control plan will improve Outcome: Progressing Goal: Ability to identify pain intensity on a pain scale and rate it consistently will improve Outcome: Progressing Goal: Ability to notify healthcare provider of pain before it becomes unmanageable or unbearable will improve Outcome: Progressing Problem: Medication: Goal: Satisfaction with pain management regimen will improve Outcome: Progressing Problem: Sensory: Goal: Ability to identify factors that increase the pain will improve Outcome: Progressing Goal: Pain level will decrease Outcome: Progressing Problem: Activity: Goal: Ability to return to normal activity level will improve Outcome: Progressing Problem: Lack of Knowledge: Goal: Knowledge of the prescribed therapeutic regimen will improve Outcome: Progressing Problem: Coping: Goal: Ability to cope will improve Outcome: Progressing Problem: Health Behavior: Goal: Identification of resources available to assist in meeting health care needs will improve Outcome: Progressing Problem: Sensory: Goal: Pain level will decrease Outcome: Progressing Problem: Cardiac: Goal: Ability to maintain an adequate cardiac output will improve Outcome: Progressing Goal: Hemodynamic stability will improve Outcome: Progressing Problem: Lack of Knowledge: Goal: Ability to state signs and symptoms to report to health care provider will improve Outcome: Progressing Goal: Knowledge of the prescribed therapeutic regimen will improve Outcome: Progressing Goal: Mental status will improve Outcome: Progressing Problem: Fluid Volume: Goal: Ability to achieve and maintain adequate urine output will improve Outcome: Progressing Problem: Respiratory: Goal: Respiratory status will improve Outcome: Progressing Problem: Lack of Knowledge: Goal: Verbalization of understanding the information provided will improve Outcome: Progressing Problem: Lack of Knowledge: Goal: Ability to develop a pain control plan will improve Outcome: Progressing Goal: Ability to identify pain intensity on a pain scale and rate it consistently will improve Outcome: Progressing Goal: Ability to notify healthcare provider of pain before it becomes unmanageable or unbearable will improve Outcome: Progressing Problem: Medication: Goal: Satisfaction with pain management regimen will improve Outcome: Progressing Problem: Sensory: Goal: Ability to identify factors that increase the pain will improve Outcome: Progressing Goal: Pain level will decrease Outcome: Progressing Goals: Clinical Goals for the Shift: up to chair Summary: monitor tele, vitals, blood sugar, up to chair, discharge to inpatient rehab today OR ART DIRECTOR * Summary of Treatment Recommendations Non-Billable - Dora Delarosa NP - 06/29/2022 8:12 AM CST Diabetes Service Discharge/Sign Off Recommendations Type of DM: T1DM Diagnosis: Angina pectoris (HCC) [I20.9] PMD: Aditya Castro MD Medication Recommendations (Please use the ADULT END DIABETES DISCHARGE order set): Continue Omnipod 5 insulin pump with Dexcom G6 CGM at home settings: TIME BASAL RATE TOTAL BASAL DAILY DOSE: 65.85 0330 1.7 units/hour 0800 0.8 units/hour 2000 5.8 units/hour ICR: 1:6.5 SENSITIVITY: 1:25 IAT: 4 hours TARGET: 120 If pump fails, give lispro 4 units once and restart insulin pump. If pump supplies are not available: - Lantus 35 units qAM - Humalog 10 units with meals - Continue resistant correction scale TID/HS/0200 - NPH 45 units with start of peritoneal dialysis session Labs/Frequency to be Monitored: continuous glucose monitoring HbA1c every 3 months or 6 months if appropriate, Urine microalbumin/creatinine test yearly, and Dilated eye exam yearly or sooner as indicated by your eye dropper assembler Pending results for primary service or primary care physician to follow up on: None at time of discharge Follow Up Plan: Follow up with endocrinology near his home 1-2 weeks after discharge to reassess glycemic management and adjust insulin pump settings as needed. OR ART DIRECTOR * Plan of Care - Gucci Macedo, DEFLECTOR OPERATOR - 06/29/2022 1:28 AM CST BEN Continue on NPPV OR ART DIRECTOR * Consults, Subsequent - James Horvath MD - 06/28/2022 5:36 PM SENIOR ART DIRECTOR NEPHROLOGY CONSULT SUBSEQUENT VISIT INTERVAL HISTORY: NAEO. Patient reports he is doing well, and has been eating well. He now has his insulin pump againand reports his sugars are much better controlled now. About 1.1L of UF. OBJECTIVE Vitals: 06/27/22 1900 06/28/22 0600 06/28/22 0823 06/28/22 1500 BP: 125/52 124/62 125/59 98/54 BP Location: Right arm Right arm Right arm Right arm Patient Position: Lying Lying;HOB 30 degrees Lying;HOB 30 degrees Pulse: 73 70 71 73 Resp: 18 16 18 20 Temp: 36.6 ??C (97.9 ??F) 36.7 ??C (98.1 ??F) 36.4 ??C (97.5 ??F) 37.2 ??C (99 ??F) TempSrc: Oral Oral Oral Oral SpO2: 94% 98% 97% 93% Weight: 120.3 kg (265 lb 3.4 oz) Height: PHYSICAL EXAM: General: Alert and awake Eyes: PERRL. Sclera nonicteric. ENT: MMM. Trialysis line in L neck. Cardiac: Regular rate and rhythm. Pulm: Soft crackles throughout lung charlse GI/Abd: Soft, obese, nondistended, BS positive Lymphatic: No significant LAD Extremities: No peripheral cyanosis. Warm extremities 1+ pitting edema. Skin: No rash or bruises Date 06/27/22699 - 06/28/2265806/28/22699 - 06/29/2259 Shift 0101-8086 4738-7421 24 Hour Total 8851-8712 3038-5208 24 Hour Total INTAKE P.O. 400 400 Other 46695 56910 Shift Total(mL/kg) 64886(101.4) 97208(101.4) 400(3.3) 400(3.3) OUTPUT Urine(mL/kg/hr) 200(0.1) 200(0.1) 150 150 Other 81765 44375 Shift Total(mL/kg) 200(1.7) 62731(110.5) 36171(112.2) 150(1.2) 150(1.2) NET -200 -1101 -1301 250 250 Weight (kg) 118.9 120.3 120.3 120.3 120.3 120.3 LABORATORY DATA: Recent Labs Lab Units 06/27/22 0351 06/26/22 0323 06/24/22 0410 WBC K/cumm 3.8 4.1 4.3 HEMOGLOBIN g/dL 7.5* 7.6* 7.9* PLATELETS K/cumm 294 250 206 Recent Labs Lab Units 06/27/22 0351 06/26/22 0323 06/25/22 0436 06/23/22 1435 06/23/22 1401 06/23/22 0421 06/22/22 2128 06/22/22 1521 06/21/22 2155 SODIUM mmol/L 132* 134* 135 < > 136 -- -- 138 136 POTASSIUM PLASMA mmol/L 3.1* 3.6 3.9 < > 3.4 -- -- 3.7 4.0 CHLORIDE mmol/L 89* 91* 93* < > 96* -- -- 99 98 CO2 mmol/L 26 26 28 < > 25 -- -- 27 24 BUN SERUM mg/dL 46* 47* 44* < > 45* -- -- 42* 41* CREATININE mg/dL 10.21* 10.28* 9.57* < > 8.21* -- -- 7.25* 6.03* ALBUMIN g/dL -- -- -- -- -- -- -- 2.9* 2.7* CALCIUM mg/dL 8.4* 8.5 8.6 < > 8.3* -- -- 8.6 8.4* MAGNESIUM mg/dL -- -- -- -- 2.8* 2.9* -- 2.9* 2.8* PHOSPHORUS PLASMA mg/dL -- -- 7.9* -- 5.2* -- 5.8* -- 4.8* < > = values in this interval not displayed. Lab Results Component Value Date CALCIUM 8.4 (L) 06/27/2022 CAION 4.62 06/07/2022 PHOS 7.9 (H) 06/25/2022 Lab Results Component Value Date IRON 50 06/07/2022 TIBC 130 (L) 06/07/2022 TRANSFERSAT 38 06/07/2022 FERRITIN 2,062 (H) 06/07/2022 CURRENT MEDICATIONS: aspirin, 81 mg, oral, Daily atorvastatin, 80 mg, oral, Daily calcitRIOL, 0.25 mcg, oral, Daily calcium acetate(phosphat bind), 667 mg, oral, QID clopidogreL, 75 mg, oral, Daily ezetimibe, 10 mg, oral, Daily gentamicin, , topical, Daily heparin, 5,000 Units, subcutaneous, Q8H ASHLEY isosorbide mononitrate ER, 30 mg, oral, Daily losartan, 12.5 mg, oral, Daily metoprolol tartrate, 25 mg, oral, BID pantoprazole DR, 40 mg, oral, Daily polyvinyl alcohol-povidone, 1 drop, each eye, QID [Held by Provider] ranolazine ER, 500 mg, oral, BID peritoneal fluid with or without additives for CCPD, peritoneal fluid with or without additives for CCPD, peritoneal fluid with or without additives for CCPD, peritoneal fluid with or without additives for CCPD, INSULIN PUMP - insulin lispro (HUMALOG), 0-25 Units ASSESSMENT AND RECOMMENDATIONS ESRD on PD - Schedule: nightly - last OP HD: 06/03/2022 - Access: Lt LQ PD catheter Patient was on CVVHDF from 06/07-06/15, when attempt was made to switch back to CCPD given line issues. Was on continuous PD 06/15-06/18. CRRT again from 06/18- 06/19, SLED 06/20. CCPD resumed 06/21. -Continue with CCPD tonight with his home prescription. -Daily dressing changes for PD catheter, with gentamycin -Daily BM to prevent catheter malpositioning 2. Hypertension - Currently well controlled - adjust UF accordingly 3. Hyperkalemia - Potassium 3.1 - No need for renal diet in PD patients - Follow up K after repletion 4. Secondary hyperparathyroidism of renal origin - Calcium 8.4 and last phos 7.9 - Recommend re-starting phos binder (PhosLo) 5. Anemia of ESRD - hgb 7.5 - CORRINE and IV iron per outpatient unit, resume if prolonged hospital stay - transfuse for hgb < 7.0 Patient seen and discussed with my attending, Dr. Andre 06/28/22 James Horvath MD Nephrology Fellow PGY-4 Consult 1 Service Contact (phone): [phone] After hours and weekends: please page [phone] Cosigned by Arleen Andre MD at 06/28/2022 8:35 PM SENIOR ART DIRECTOR OR ART DIRECTOR OR ART DIRECTOR Associated attestation - Arleen Andre MD - 06/28/2022 8:35 PM SENIOR ART DIRECTOR I saw and examined the patient on 06/28/2022. I have discussed the patient's management with the nephrology fellow/resident. I agree with the findings, assessment and plan of care as documented in thefellow's/resident's note. Additional history, findings, assessment and recommendations, if any, are outlined below. Arleen Andre MD publishing systems analyst Division of Nephrology * Subjective & Objective - Frank Bowers MD - 06/28/2022 3:21 PM SENIOR ART DIRECTOR Daily Progress Note Division of Hospital Medicine Name: Adelia Garvin Jr. Today: June 28, 2022 : 1970 Age: 51 y.o. male Admit: 06/04/2022 Bed: [id number] Subjective Chief complaint: NSTEMI Interval History: Pt feeling well, he has no complaints currently other than some fatigue and generalized weakness Objective Medications: Scheduled: aspirin, 81 mg, oral, Daily atorvastatin, 80 mg, oral, Daily calcitRIOL, 0.25 mcg, oral, Daily calcium acetate(phosphat bind), 667 mg, oral, QID clopidogreL, 75 mg, oral, Daily ezetimibe, 10 mg, oral, Daily gentamicin, , topical, Daily heparin, 5,000 Units, subcutaneous, Q8H ASHLEY isosorbide mononitrate ER, 30 mg, oral, Daily losartan, 12.5 mg, oral, Daily metoprolol tartrate, 25 mg, oral, BID pantoprazole DR, 40 mg, oral, Daily polyvinyl alcohol-povidone, 1 drop, each eye, QID [Held by Provider] ranolazine ER, 500 mg, oral, BID Infusions: peritoneal fluid with or without additives for CCPD, peritoneal fluid with or without additives for CCPD, peritoneal fluid with or without additives for CCPD, peritoneal fluid with or without additives for CCPD, INSULIN PUMP - insulin lispro (HUMALOG), 0-25 Units PRN: acetaminophen albuterol HFA dextrose OR dextrose dextrose 5% water dextrose 5% water fluticasone propionate glucagon insulin lispro lidocaine nitroglycerin ondansetron ODT OR ondansetron ramelteon Vitals: 24hr Min/Max: Temp Min: 36.4 ??C (97.5 ??F) Max: 36.7 ??C (98.1 ??F) Pulse Min: 70 Max: 73 BP Min: 124/62 Max: 125/59 Resp Min: 16 Max: 18 SpO2 Min: 94 % Max: 98 % Most Recent: Vitals: 06/28/22 0823 BP: 125/59 Pulse: 71 Resp: 18 Temp: 36.4 ??C (97.5 ??F) SpO2: 97% Intake/Output Summary (Last 24 hours) at 06/28/2022 1521 Last data filed at 06/28/2022 1300 Gross per 24 hour Intake 47357 ml Output 30579 ml Net -851 ml Physical Exam Constitutional: NAD, well developed, well nourished Eyes: PERRL, EOMI, anicteric ENT: NCAT, oropharynx normal, moist mucus membranes Lungs: Clear to auscultation in all lung charles, unlabored Cardiovascular: RRR, normal S1 and S2, no murmurs, no JVD GI: Soft, non-tender, non-distended, bowel sounds +, no organomegaly Skin: No new rashes, lesions or bruises on visible skin Extremities: Normal without edema or cyanosis Lymph: No cervical, supraclavicular, axillary or inguinal adenopathy Neurologic: AOx4, CNII-XII intact, normal strength and sensation Psychiatric: Normal affect and mood I have reviewed the patient's vital signs. Lab/Diagnostic Review: Recent Results (from the past 36 hour(s)) Basic metabolic panel Collection Time: 06/27/22 3:51 AM Result Value Ref Range Sodium 132 (L) 135 - 145 mmol/L Potassium, pl 3.1 (L) 3.3 - 4.9 mmol/L Chloride 89 (L) 97 - 110 mmol/L CO2 26 22 - 32 mmol/L Anion gap 17 (H) 2 - 15 mmol/L BUN 46 (H) 8 - 25 mg/dL Creatinine 10.21 (H) 0.80 - 1.30 mg/dL Glucose 274 (H) 70 - 199 mg/dL Calcium 8.4 (L) 8.5 - 10.3 mg/dL CBC without differential Collection Time: 06/27/22 3:51 AM Result Value Ref Range WBC 3.8 3.8 - 9.9 K/cumm Hgb 7.5 (L) 13.0 - 17.5 g/dL Hct 22.8 (L) 38.9 - 50.3 % Plt 294 150 - 400 K/cumm MPV 10.0 9.1 - 12.3 fL RBC 2.49 (L) 4.30 - 5.80 M/cumm MCV 91.6 81.3 - 96.4 fL MCH 30.1 27.1 - 33.3 pg MCHC 32.9 32.3 - 35.7 g/dL RDW CV 17.5 (H) 11.1 - 14.9 % RDW SD 57.9 (H) 35.7 - 48.1 fL NRBC abs 0.00 0.00 - 0.01 K/cumm eGFR Collection Time: 06/27/22 3:51 AM Result Value Ref Range eGFR 6 (L) 90 - 130 mL/min/1.73 m2 POCT glucose Collection Time: 06/27/22 7:54 AM Result Value Ref Range Glucose, POC 350 (H) 70 - 199 mg/dL POCT glucose Collection Time: 06/27/22 11:37 AM Result Value Ref Range Glucose, POC 228 (H) 70 - 199 mg/dL Glucose comment 1 Glu2: LUAN/ Notified POCT glucose Collection Time: 06/27/22 4:54 PM Result Value Ref Range Glucose, POC 143 70 - 199 mg/dL POCT glucose Collection Time: 06/27/22 7:51 PM Result Value Ref Range Glucose, POC 199 70 - 199 mg/dL POCT glucose Collection Time: 06/28/22 7:41 AM Result Value Ref Range Glucose, POC 68 (L) 70 - 199 mg/dL Glucose comment 1 Glu2: LUAN/ Notified POCT glucose Collection Time: 06/28/22 8:02 AM Result Value Ref Range Glucose, POC 75 70 - 199 mg/dL POCT glucose Collection Time: 06/28/22 8:20 AM Result Value Ref Range Glucose, POC 95 70 - 199 mg/dL POCT glucose Collection Time: 06/28/22 8:37 AM Result Value Ref Range Glucose, POC 121 70 - 199 mg/dL POCT glucose Collection Time: 06/28/22 9:53 AM Result Value Ref Range Glucose, POC 181 70 - 199 mg/dL POCT glucose Collection Time: 06/28/22 11:42 AM Result Value Ref Range Glucose, POC 281 (H) 70 - 199 mg/dL Glucose comment 1 Glu2: RN/MD Notified I have reviewed the laboratory results. Imaging Results: FL Modified Barium Swallow W Video Narrative: EXAMINATION: MODIFIED BARIUM SWALLOW HISTORY: Concern for dysphagia. TECHNIQUE: This procedure was completed in conjunction with a Speech Language Pathologist. The patient was given barium of multiple different consistencies to swallow. Video fluoroscopy was employed during the exam. FINDINGS: Oral-pharyngeal swallow function is mildly impaired. Penetration: Yes There is penetration of thin liquids and nectar thick liquids. Penetration is sensed. The penetrated material is cleared. Aspiration: No Residue:Yes There is oral-pharyngeal residue of purees and solids. Residue is not sensed. The residual material is cleared. Other comments: None Impression: The swallowing mechanism is abnormal; see above comments. Please refer to the Speech Pathology procedure note for safe swallow recommendations as well as additional information regarding the oral-pharyngeal swallow function, plan of care, and recommended follow up. Dictated by: Adam Aiken M.D. The radiology attending physician has personally reviewed this study, and had reviewed and/or edited this written report and agrees with it. OR ART DIRECTOR * Plan of Care - Elsie Gonzalez RN - 06/28/2022 3:16 PM CST Back Shoe Worker noted patient has been recommended for inpatient rehab by PT/OT. city manager met withthe patient at bedside to discuss recommendations by therapy and to work on a potential discharge disposition plan. Back Shoe Worker provided education to patient on inpt rehab facilities and the rehabilitation process.Patient reported he was interested in short term inpatient rehab. city manager explained to the patient the choices were limited due to his PD. Per patient request, CM sent referrals to inpatient rehab facilities near [facility]. Facilities in [place] unable to accept PD at this time. CM sent referrals to [facility]. [facility] is able to accept PD patient and they have beds available tomorrow. Per patient choice will transfer to [facility] tomorrow. [facility] intake coord and care team notified of patient choice. OR ART DIRECTOR * Consults, Subsequent - Dora Delarosa NP - 06/28/2022 1:30 PM CST Endocrinology & Diabetes Progress Note Patient: Adelia Garvin Jr., 51 y.o. male (: 1970) Room: [place] [address] ( ) LOS: 24 Adelia Garvin Jr. is a 51 y.o. male with PMH significant for T1DM on insulin pump, atrial fibrillation, HTN, HLD, CAD s/p PCI, ESRD on PD, and hyperparathyroidism who presented to the hospital with weakness, N/V, diarrhea and chest pain. Hospital course complicated by respiratory failure requiring intubation, cardiogenic shock and agitation. The Endocrinology/Diabetes Service is providing diabetes/insulin pump management and discharge planning recommendations during this hospitalization. Interval Events & Subjective There were no acute events overnight. Mr. Garvin reports his appetite is good today. I felt jittery this morning when my blood sugar was 68 mg/dl. I knew I needed them to check it when the Dexcom was reading in the 90s. I fall fast. Denies nausea/vomiting/diarrhea, chest pain, shortness of breath, fever or chills today. Peritoneal dialysis continues during night. Voiding without difficulty; passing flatus. Diet: Adult Diet Restricted; 2 GM Sodium; Consistent Carbohydrate Over the previous 24 hours, blood glucose improving, but not at target with range of 143-350 mg/dl with 92.7 units TDD insulin coverage (67 units subcutaneously and 25.7 units via insulin pump. Peritoneal dialysis likely contributed to severe hyperglycemia yesterday morning as blood glucose trending up with start of PD. Target inpatient blood glucose is 100-180 mg/dl. Fasting blood glucose this morning was 68 mg/dl; symptomatic - felt jittery. This was treated with juice, basal insulin paused and no bolus administered for breakfast. Pre-lunch blood glucose was 281 mg/dl. Recent Labs Lab Units 06/28/22 1142 06/28/22 0953 06/28/22 0837 06/28/22 0820 06/28/22 0802 06/28/22 0741 06/27/22 1951 06/27/22 1654 06/27/22 1137 06/27/22 0754 POC GLUCOSE MONITOR mg/dL 281* 181 121 95 75 68* 199 143 228* 350* Interval Review of Systems Twelve point ROS reviewed and negative except as noted in HPI. All other systems negative. Vitals & Exam Temp: [36.4 ??C (97.5 ??F)-36.7 ??C (98.1 ??F)] 36.4 ??C (97.5 ??F) Pulse: [70-71] 71 BP: (124-125)/(59-62) 125/59 Resp: [16-18] 18 SpO2: [97 %-98 %] 97 % I/O this shift: In: 300 [P.O.:300] Out: 150 [Urine:150] Physical Exam Gen : pleasant 51 year old male resting quietly in bed in no acute distress, alert, appropriate, cooperative, appears stated age, well-developed, well-nourished HENT : normocephalic, atraumatic, moist mucus membranes Eyes : conjunctiva clear, anicteric, no proptosis/exophthalmos/lid lag Pulm : non-labored, supplemental oxygen Extr : atraumatic, no cyanosis/clubbing/edema Skin : turgor normal, no rashes/wounds/lesions, Dexcom CGM LLQ abdomen, insulin pump insertion siteLLQ Neuro : alert, speech fluent, comprehension intact, moving all extremities, IV access LUE/RUE, HD catheter right chest wall Psych : cooperative, appropriate affect & mood, good insight & judgment Data Medications, labs, imaging, and diagnostics independently reviewed in [facility] and commented on below. Lab Results Component Value Date TSH 0.80 03/21/2017 Lab Results Component Value Date CHOL 149 06/04/2022 TRIG 183 (H) 06/21/2022 HDL 34 (L) 06/04/2022 LDLCALC 82 06/04/2022 Lab Results Component Value Date 25HYDROVITD 22.7 (L) 03/22/2017 Lab Results Component Value Date HGBA1C 7.8 (H) 06/04/2022 Assessment & Plan 51 y.o. male with PMH significant for T1DM on insulin pump, atrial fibrillation, HTN, HLD, CAD s/p PCI, ESRD on PD, and hyperparathyroidism who presented to the hospital with weakness, N/V, diarrhea and chest pain. Hospital course complicated by respiratory failure requiring intubation, cardiogenicshock and agitation. 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, with prison use of insulin, complicated by ESRD on PD, CAD s/p PCI, CHF - HbA1c 7.4% - Uses Omnipod and Dexcom G6 at home, not currently on this- doesn't have the supplies -On significantly higher basal rates on pump at night due to peritoneal dialysis -home settings: Basal rate 0330 >>1.7 0800 >> 0.8 2000 >> 5.8 ICR1:6.5 ISF1:25 [id number] TIA 4 Over the previous 24 hours, blood glucose improving, but not at target with range of 143-350 mg/dl with 92.7 units TDD insulin coverage (67 units subcutaneously and 25.7 units via insulin pump. Peritoneal dialysis likely contributed to severe hyperglycemia yesterday morning as blood glucose trending up with start of PD. Target inpatient blood glucose is 100-180 mg/dl. Fasting blood glucose this morning was 68 mg/dl; symptomatic - felt jittery. This was treated with juice, basal insulin paused and no bolus administered for breakfast. Pre-lunch blood glucose was 281 mg/dl. Inpatient glycemic management complicated by variable oral intake, stress, impaired renal function and acute illness. As glycemia tightly controlled this morning, we recommend decreasing the basal insulin dose from 6746-3625 today. We will continue to intensely monitor blood glucose and titrate insulin as needed to optimize glycemic control to avoid hypoglycemic/hyperglycemic events. Recommendations for diabetes management were discussed with the primary team. Insulin pump and supplies at bedside. Mr. Garvin is alert and oriented x 3 and has the mental capacity and manual dexterity to self-administer his own insulin pump. We reviewed the need to completethe insulin pump bedside log as a stipulation to use the insulin pump as an inpatient. He agrees tocomplete the insulin pump bedside log as required. Insulin pump settings adjusted to reflect current insulin requirements during this admission. Recommendations: TIME BASAL RATE TOTAL BASAL DAILY DOSE: 65.85=>60.6 0330 1.7=>1.0 units/hour 0800 0.8 units/hour 2000 5.8 units/hour ICR: 1:6.5 SENSITIVITY: 1:25 IAT: 4 hours TARGET: 120 If pump fails, give lispro 4 units once and restart insulin pump. If pump supplies are not available: - Lantus 35 units qAM - Humalog 10 units with meals - Continue resistant correction scale TID/HS/0200 - NPH 45 units with start of peritoneal dialysis session - POC glucoses TID/HS/0200 Discharge recommendations: - likely insulin pump; settings TBD # ESRD on PD - Serum Cr = 10.21 today - CKD and ESRD are independent risk factors for hypoglycemia ## Discharge Planning - Follow-up with home green house manager -- Dora Delarosa NP Endocrinology, Metabolism, & Lipid Research Contact Info: New Consults: [phone]) General Endocrine (Non-Diabetes): [phone] (Check 'Treatment Team' assignment for Diabetes 1 vs 2 vs 3) Diabetes 1: Diabetes Fellow: [phone] Diabetes 2: Dora Delarosa CHIEF AIRLINE RADIO OPERATOR: [phone] Diabetes 3: See Treatment Team Provider (or call Dora Delarosa, above) Diabetes After-Hours & Weekends: Diabetes Fellow OR ART DIRECTOR * Plan of Care - Elsie Gonzalez RN - 06/28/2022 1:24 PM CST CM sent 5 more referrals in [facility] for inpt rehab- awaiting response from facility that can accept PD patients OR ART DIRECTOR * Plan of Care - Manda Lake RN - 06/28/2022 9:46 AM CST Problem: Health Behavior: Goal: Understanding of discharge needs will improve Outcome: Progressing Problem: Lack of Knowledge: Goal: Ability to state ways to decrease the risk of falls will improve Outcome: Progressing Problem: Safety: Goal: Will remain free from falls Outcome: Progressing Goal: Will remain free from injury from falls Outcome: Progressing Goal: Will remain free from falls and injury in home environment Outcome: Progressing Problem: Lack of Knowledge: Goal: Knowledge of disease or condition and prescribed therapeutic regimen will improve Outcome: Progressing Problem: Coping: Goal: Level of anxiety will decrease Outcome: Progressing Problem: Sensory: Goal: Pain level will decrease Outcome: Progressing Problem: Lack of Knowledge: Goal: Ability to describe self-care measures that may prevent or decrease complications will improve Outcome: Progressing Goal: Knowledge of disease or condition will improve Outcome: Progressing Goal: Knowledge of the prescribed therapeutic regimen will improve Outcome: Progressing Goal: Knowledge of prevention and discharge planning will improve Outcome: Progressing Problem: Coping: Goal: Ability to adjust to condition or change in health will improve Outcome: Progressing Problem: Fluid Volume: Goal: Ability to maintain a balanced intake and output will improve Outcome: Progressing Problem: Health Behavior: Goal: Ability to identify and alter actions that are detrimental to health will improve Outcome: Progressing Goal: Ability to identify and utilize available resources and services will improve Outcome: Progressing Goal: Ability to manage health-related needs will improve Outcome: Progressing Problem: Nutritional: Goal: Maintenance of adequate nutrition will improve Outcome: Progressing Goal: Progress toward achieving an optimal weight will improve Outcome: Progressing Problem: Physical Regulation: Goal: Complications related to the disease process, condition or treatment will be avoided or minimized Outcome: Progressing Goal: Diagnostic test results will improve Outcome: Progressing Problem: Skin Integrity: Goal: Risk for impaired skin integrity will decrease Outcome: Progressing Problem: Lack of Knowledge: Goal: Ability to develop a pain control plan will improve Outcome: Progressing Goal: Ability to identify pain intensity on a pain scale and rate it consistently will improve Outcome: Progressing Goal: Ability to notify healthcare provider of pain before it becomes unmanageable or unbearable will improve Outcome: Progressing Problem: Medication: Goal: Satisfaction with pain management regimen will improve Outcome: Progressing Problem: Sensory: Goal: Ability to identify factors that increase the pain will improve Outcome: Progressing Goal: Pain level will decrease Outcome: Progressing Problem: Activity: Goal: Ability to return to normal activity level will improve Outcome: Progressing Problem: Lack of Knowledge: Goal: Knowledge of the prescribed therapeutic regimen will improve Outcome: Progressing Problem: Coping: Goal: Ability to cope will improve Outcome: Progressing Problem: Health Behavior: Goal: Identification of resources available to assist in meeting health care needs will improve Outcome: Progressing Problem: Sensory: Goal: Pain level will decrease Outcome: Progressing Problem: Cardiac: Goal: Ability to maintain an adequate cardiac output will improve Outcome: Progressing Goal: Hemodynamic stability will improve Outcome: Progressing Problem: Lack of Knowledge: Goal: Ability to state signs and symptoms to report to health care provider will improve Outcome: Progressing Goal: Knowledge of the prescribed therapeutic regimen will improve Outcome: Progressing Goal: Mental status will improve Outcome: Progressing Problem: Fluid Volume: Goal: Ability to achieve and maintain adequate urine output will improve Outcome: Progressing Problem: Respiratory: Goal: Respiratory status will improve Outcome: Progressing Problem: Lack of Knowledge: Goal: Verbalization of understanding the information provided will improve Outcome: Progressing Problem: Lack of Knowledge: Goal: Ability to develop a pain control plan will improve Outcome: Progressing Goal: Ability to identify pain intensity on a pain scale and rate it consistently will improve Outcome: Progressing Goal: Ability to notify healthcare provider of pain before it becomes unmanageable or unbearable will improve Outcome: Progressing Problem: Medication: Goal: Satisfaction with pain management regimen will improve Outcome: Progressing Problem: Sensory: Goal: Ability to identify factors that increase the pain will improve Outcome: Progressing Goal: Pain level will decrease Outcome: Progressing Goals: Clinical Goals for the Shift: up to chair Summary: Control blood sugars, up to chair, monitor tele and vitals OR ART DIRECTOR * Plan of Care - Sasha Leonard SLP - 06/28/2022 9:33 AM CST Problem: Swallowing Goal: LTG - Patient will tolerate the least restrictive diet consistency to allow for safe consumption of daily meals Outcome: Completed Goal: STG - Patient will follow recommended swallowing strategies Outcome: Completed Professional Recommendations Diet Solids Recommendation: Regular Diet Liquids Recommendations: Thin/regular Recommended Form of Medications: As tolerated Compensatory Strategies/Modifications: Alternate solids and liquids, Single sips, Small bites, Double/repeat swallows to clear Postural Recommendations: Upright Assistance with feeding/swallowing: Setup only, Assist with aggressive oral hygiene prior to po Specialty Instructions/Modifications: none Pt seated upright in bed and alert t/o session. RN agreeable to PO trials, reported no observed difficulty with PO. No clinical s/s of aspiration per EMR. Pt with improved mental status compared to previous sessions. Pt completed PO trials of thin liquids via large bore straw and dry solid. Pt withadequate mastication and complete oral clearance. No overt signs and symptoms of penetration/aspiration t/o trials. Provided ed to pt and RN re: on-going diet recs, safe swallow strategies, and LOCKSTITCH HEMMER POC, they verbalized understanding and agreement. ST to s/o. OR ART DIRECTOR * Hospital Course - Carey East MD - 06/27/2022 9:31 PM SENIOR ART DIRECTOR Adelia Garvin Jr. is 51 y.o. male with history of DMI on insulin pump c/b ESRD on PD and CAD s/pPCI, HFrEF and Afib not on AC admitted on 06/04/2022 from OSH for complex PCI. Patient initially presented with chest pain and nausea, workup showed Trop peak of 1.09, LHC on 06/03 at OSH showed 90%+ostial LCx and OM lesion and accepted by cardiology for complex PCI. Patient underwent PCI on 06/07with successful placement of MARIELLA to LCx and OM bifurcation, procedure was complicated by cardiogenic shock requiring Impella and respiratory failure requiring intubation. Temp Trialysis placed and patient was placed on CRRT, patient received supportive care and weaned on Impella on 06/10 and extubated on 06/19 and transferred to the floor on 06/22. * NSTEMI (non-ST elevated myocardial infarction) (CMS/HCC) ([facility]) With interventions described above. Post-transfer and post-cath, he developed recurrent substernal chest pain with no EKG changes. Per cardiology, despite being s/p complex PCI to LCx and OM bifurcation with MARIELLA, he still has significant residual disease. He was treated with uptrending doses of metoprolol for rate controlled AFib, imdur, and ranolazine with good control of chest pain prior to discharge. He was continued on DAPT and atorvastatin as well. Atrial fibrillation (CMS/HCC) ([facility]) He was in atrial fibrillation on transfer to medicine with rates ~90-110s. Metoprolol was uptitrated for improved rate control, ultimately his rhythm converted to NSR overnight on 06/24. Metoprolol was de-escalated for sinus bradycardia; stable on metop at discharge. CHADsVASc=4, but he was not on anticoagulation prior to admission. While on DAPT, he was not started on anticoagulation during this hospitalization either with high HAS-BLED score. Acute on chronic HFrEF (heart failure with reduced ejection fraction) ([facility]) He developed cardiogenic shock requiring impella in the setting of cath c/b AHRF 2/2 pulmonary edema. Post-cath, TTE demonstrated recovered EF 65% with grade I diastolic dysfunction. Volume was managed with CRRT in ICU, then by resumption of PD on the medical floor. In discussion with nephrology, low dose losartan was started for GDMT in addition to metoprolol. ESRD (end stage renal disease) ([facility]) ([facility]) Renal consulted on admission with history of ESRD on PD. While in ICU, temporary dialysis catheter was placed to facilitate CRRT for volume removal. Upon transfer to the floor, PD was continued and tolerated well. He was continued on his home vitamins for renal bone mineral disease and phoslo. Trialysis removed 06/25. Type 1 diabetes mellitus ([facility]) Prior to admission, his A1c was well controlled on home insulin pump. The patient didn't bring the pump to the hospital, and while critically ill/on CRRT he was initiated on basal/bolus insulin regimen in conjunction with the endocrine service. He had both hyperglycemic and hypoglycemic episodes onthis regimen 2/2 complicated regimen related to PD. Patient was resumed on home insulin pump on 06/27 with improved control. Acute hypoxemic respiratory failure (HCC) Secondary to ACS and flash pulmonary edema, since resolved with CRRT and extubated on 06/19. Patient passed barium swallow on 06/21. Remained on RA. OR ART DIRECTOR OR ART DIRECTOR * [facility]IN Note - Elsie Gonzalez RN - 06/27/2022 1:25 PM CST Images from the original note were not included. Patient Information: Comprehensive Nursing Documentation Attending Provider: Carey East MD Allergies: Allopurinol, Chlorhexidine Gluconate, Contrast Dye [Iodinated Contrast Media], Other, Ticagrelor, Chlorhexidine Isolation: None Infection: None Code Status: FULL Ht: 177.8 cm (5' 10 ) Wt: 118.9 kg (262 lb 2 oz) Admission Cmt: None Principal Problem: NSTEMI (non-ST elevated myocardial infarction) ([facility]/HCC) (HCC) [I21.4] Elopement Risk Date/Time Risk/Reason for Elopement User 06/04/22 2300 No risk HCE 06/04/22 2100 No risk IRP Intake/Output 06/24/22 0700 - 06/25/22 0659 06/25/22 0700 - 06/26/22 0659 06/26/22 0700 - 06/27/22 0659 06/27/22 0700 - 06/28/22 0659 Total Total 5490-3350 1967-8246 8014-9747 Total 0456-7484 4989-2755 3320-3109 Total Intake (ml) 55881 61111 340 100 22355 89689 -- -- -- -- Output (ml) 62742 53538 300 -- 48629 07038 200 -- -- 200 Net (ml) -2404 -1287 40 100 -1849 -1709 -200 -- -- -200 Last Weight 119.7 kg (263 lb 14.3 oz) 116.1 kg (255 lb 15.3 oz) -- -- -- -- 118.9 kg (262 lb 2 oz) -- -- -- Patient Lines/Drains/Airways Status Active Airway / Central venous catheter / Drain / Epidural cathether / Intraosseous line / Peripherally inserted central catheter / Peripheral intravenous line / Arterial line Name Placement date Placement time Site Days Peripheral IV 06/21/22 20 G Anterior;Left;Proximal Forearm 06/21/22 1006 Forearm 6 Peripheral IV 06/25/22 20 G Anterior;Proximal;Right Forearm 06/25/22 0700 Forearm 2 Patient Lines/Drains/Airways Status Active Wound / Pressure ulcer / [place] / Negative Pressure Wound Wound 06/12/22 Hematoma Left Neck Hematoma in the IJ Date First Assessed 06/12/22 Site Neck Time First Assessed 0410 Days 15 Present on Hospital Admission: No Wound Type: Hematoma Location Orientation: Left Wound Description (Comments): Hematoma in the IJ Assessments Row Name 06/26/22 2030 06/26/22 0706/25/221999 Wound Status -- Evolving -- Site Assessment -- Clean;Dry;Intact -- Dressing -- Dry dressing -- Wound 06/13/22 Rash Anterior;Right Thigh Date First Assessed 06/13/22 Site Thigh Time First Assessed 0127 Days 14 Wound Type: Rash Location Orientation: Anterior;Right Assessments Row Name 06/26/22202906/26/22 0725 06/25/221999 Wound Status -- Evolving -- Site Assessment -- Clean;Dry;Intact -- Marie-wound Assessment -- Color appropriate for ethnicity -- Dressing -- Transparent film -- Wound 06/21/22 MASD (Moisture associated skin damage) Bilateral Buttocks Date First Assessed 06/21/22 Site Buttocks Time First Assessed 1541 Days 5 Wound Type: MASD (Moisture associated skin damage) Location Orientation: Bilateral Assessments Row Name 06/26/22202906/26/22 0725 06/25/221999 Wound Status Evolving Evolving Evolving Site Assessment Fragile;Painful Clean;Dry;Intact Fragile;Painful Marie-wound Assessment -- Color appropriate for ethnicity -- Closure Open to air -- Open to air Dressing -- Open to air -- Interventions -- -- Cleansed Torres Fall Risk Flowsheet Row Most Recent Value Prior Fall Event (Autopopulated from EMR) None found ............filed at 06/27/2022 0830 History of Falling 0 ............filed at 06/27/2022 0830 Secondary Diagnosis 15 ............filed at 06/27/2022 0830 Ambulatory Aids 15 ............filed at 06/27/2022 0830 Intravenous Therapy/Heparin/Saline Lock 20 ............filed at 06/27/2022 0830 Gait/Transferring 10 ............filed at 06/27/2022 0830 Mental Status 0 ............filed at 06/27/2022 0830 Torres Fall Risk Score 60 ............filed at 06/27/2022 0830 Vital Signs 06/26 0659 06/27 0706/27 1326 Most Recent Temp (??C) 36.9 - 37.2 36.6 36.6 (97.9) 06/27 744 Pulse 62 - 80 74 - 76 74 06/27 1021 Resp 18 - 20 18 18 06/27 0744 SpO2 (%) 94 - 99 95 - 99 97 06/27 1021 FiO2 (%) (%) 30 BP 86/40 - 117/73 101/58 - 108/63 101/58 06/27 1021 MAP (mmHg) 50 - 83 66 66 06/27 0744 Non Violent Restraint Flowsheet Row Most Recent Value Restraint Alternative Less Restrictive Alternative Reorientation to surroundings filed at 06/20/2022 0800 Restraint Reason Clinical Justification Picking/pulling at drains/lines/tubes/devices filed at 06/20/2022 0000 Restraint Type (NV) Every 2 Hours Soft Restraint R Wrist (NV) DISCONTINUED filed at 06/20/2022 0830 Soft Restraint L Wrist (NV) DISCONTINUED filed at 06/20/2022 0830 Default Flowsheet Data (most recent) Endurance Tests No documentation. Default Flowsheet Data (most recent) Balance Tests - 06/25/22 0925 Tinetti Sitting Balance 1 Arises 0 Attempts to Arise 0 Immediate Standing Balance (First 5 Seconds) 0 Standing Balance 0 Nudged 0 Eyes Closed 0 Turned 360 Degrees: Steadiness 0 Turned 360 Degrees: Continuity of Steps 0 Sitting Down 0 Balance Score 1 Nursing Nutrition None Nursing Mobility Activity 06/26 2030 Resting in bed 06/26 142 Resting in bed 06/26 725 Resting in bed 06/25 1615 Commode 06/25 735 Resting in bed 06/24 193 Resting in bed 06/24 1622 Sleeping;Resting in bed 06/24 1600 Resting in bed 06/24 1500 Dangle Level of Assistance 06/25 735 Standby assist, set-up cues, supervision of patient - no hands on 06/24 1930 Standby assist, set-up cues, supervision of patient - no hands on Repositioned 06/27 830 Turns self 06/26 2030 Turns self 06/26 725 Turns self 06/25 2000 Turns self 06/25 735 Turns self 06/24 1930 Turns self Positioning Frequency 06/27 830 Able to turn self 06/26 2030 Able to turn self 06/26 725 Able to turn self 06/25 2000 Able to turn self 06/25 735 Able to turn self 06/24 1930 Able to turn self Head of Bed Elevated 06/26 2030 Self regulated 06/25 2000 Self regulated 11/04 1930 Self regulated Heels/Feet 06/25 2000 Heels elevated off bed 06/24 1930 Heels elevated off bed , OT Eval and Treat Last Documented OT ASSESSMENT FLOWSHEET LAST DOCUMENTED (most recent) OT Evaluation - 06/27/22 0937 General Session Type Treatment OT Received On 06/27/22 Safe Environment Arm Band Checked;Call Light within Reach;Notified RN;Patient found in Supine Pt. in chair at end of session. Subjective Agreeable to Therapy Family/Caregiver Present No Precautions Precautions Fall risk Precaution Comments PPE: KN95, gloves Grooming Grooming: Where assessed Chair Grooming: Level of assistance Moderate Assist Set up task; Total balance Grooming: Assistance with Other (Comment) Unable to tolerate prolonged standing for task performance Toileting Toileting: Where assessed Toilet Toileting: Level of assistance Moderate Assist Mod task; Min balance Toileting: Assistance with Posterior;Perineal hygiene;Clothing management up;Clothing management down Toilet Transfers Toilet Transfer Type To and from Toilet Transfer to Standard toilet Toilet Transfer Technique Ambulating Toilet Transfer: Equipment Wheeled walker;Grab bar Toilet Transfers Minimal assistance Toilet Transfers Comments Assist for force production and controlled descent; Min cues for optimal postioning and hand placement Pain Assessment Pain Assessment 0-10 Pain Score 2 Pain Orientation Generalized Activity Tolerance Activity Tolerance Comments CYRUS: Hard Cognition Cognition Comments Verbalized awareness of slowed cognition/processing speed during admission. Patient educated on potential impact on IADL task management (medication) and patient verbalized understanding and use of compensatory strategies and/or assistance to ensure accurate management. Arousal/Alertness Appropriate responses to stimuli;Delayed responses to stimuli Attention Span Appears intact;Controlled environment Current communication Appears Intact Orientation Oriented X4 (person, place, time, situation) Following Commands Follows multistep commands with increased time Safety Judgment Good awareness of safety precautions Awareness of Errors Good awareness of errors made Problem Solving Assistance required to implement solutions;Assistance required to generate solutions Compliance/Behavior Easy to engage Balance Balance Yes Static Sitting Balance Static Sitting-Balance Support No upper extremity supported;Feet supported Static Sitting-Sitting Surface Bed;Chair Static Sitting-Level of Assistance Independent Dynamic Sitting Balance Dynamic Sitting-Balance Support No upper extremity supported;Feet supported Dynamic Sitting-BalanceLateral lean;Forward lean;Reaching for objects;Reaching across midline Dynamic Sitting-Sitting Surface Bed Toilet Dynamic Sitting-Level of Assistance Distant supervision Static Standing Balance Static Standing-Balance Support Bilateral upper extremity supported Static Standing-Standing Surface Floor Static Standing-Level of Assistance Minimum assistance Dynamic Standing Balance Dynamic Standing-Balance Support Unilateral upper extremity supported;No upper extremity supported Dynamic Standing-Balance Lateral lean;Forward lean;Reaching for objects;Reaching across midline Dynamic Standing-Standing Surface Floor Dynamic Standing-Level of Assistance Minimum assistance Dynamic Standing- Comments Limited dynamic standing tolerance during ADLs after ambulation to bathroom (required >2 minute seated rest break) Bed Mobility Bed Mobility Yes Bed Mobility 1 Bed Mobility From 1 Supine HOB flat Bed Mobility Type 1 To Bed Mobility to 1 Edge of bed Level of Assistance 1 Standby Assist Bed Mobility Comments 1 Increased time; compensatory movementsfor force production; SBA for balance Transfers Transfer Yes Gait belt used for all OOB activity Transfer 1 Transfer From 1 Sit Transfer Type 1 To and from Transfer to 1 Stand Technique 1 Sit to stand;Stand to sit Transfer Device 1 Wheeled walker Transfer Level of Assistance1 Minimum Assist Trials/Comments 1 Assist for force production and controlled descent; Min cues for optimal postioning and hand placement. 3 trials (1 EOB, 2 toilet height) Transfers 2 Trials/Comments 2 Patient performed functional room mobility to bathroom (~12-15 feet) with wheeledwalker and min assist/increased time. Patient required seated rest break 2/2 dizziness/fatigue. Other Comments Comments Patient presents with dizziness following mobility this date VSS and RN notified; Delayed processing speed/motor planning observed. Daily Activity - 6 Clicks Putting on and taking off regular lower body clothing 2 Bathing 2 Toileting 2 Putting on and taking off upper body clothing 3 Personal Grooming 2 Eating Meals 3 Total Score (range 6-24) 14 Score Interpretation 33.39 Assessment Problem List Decreased cognition;Decreased safe judgment during ADL;Decreased endurance;Decreased balance;Decreased functional mobility;Decreased ADL independence;Decreased IADL independence Barriersto Discharge Current Mobility Status;Decreased caregiver support;Cognition Current ADL status; Fallrisk Plan Plan Continue with current plan;If this is the last note, consider this the discharge summary Recommendation/Plan OT Recommendation Inpatient Rehab Facility Patient at high risk for Falls;Readmission;Injury due todecreased ability to care for self;Injury due to reduced functional status;Injury due to impaired cognition;Injury due to balance deficits;Injury at home as patient has not returned to prior level offunction Recommend Inpatient Rehab/Acute Rehab due to Ability to actively participate in intensive therapy 3 hours/day, 5 days/week or 900 minutes per week;Highly motivated to participate in therapy;Requires greater than 25% physical assistance with most mobility tasks;Requires greater than 25% physical assistance with most ADL tasks;Not at baseline due to impaired ability to complete ADLs;Impaired ability to complete functional mobility OT Frequency 3-5x/wk Treatment/Interventions ADL/IADL retraining;Balance Training;Compensatory technique education;Cognitive retraining;Endurance training;Functional activity;Functional mobility training;Functional transfer training;Therapeutic exercise;Therapeutic activity;Strengthening Progress Slow progress, medical status limitations OT - Next Appointment 06/29/22 OT - OK to Discharge No OT TREATMENT FLOWSHEET LAST DOCUMENTED (most recent) OT Treatment - 06/27/22 0937 General Session Type Treatment OT Received On 06/27/22 Safe Environment Arm Band Checked;Call Light within Reach;Notified RN;Patient found in Supine Pt. in chair at end of session. Subjective Agreeable to Therapy Family/Caregiver Present No Precautions Precautions Fall risk Precaution Comments PPE: KN95, gloves Pain Assessment Pain Assessment 0-10 Pain Score 2 Pain Orientation Generalized Balance Balance Yes Static Sitting Balance Static Sitting-Balance Support No upper extremity supported;Feet supported Static Sitting-Sitting Surface Bed;Chair Static Sitting-Level of Assistance Independent Dynamic Sitting Balance Dynamic Sitting-Balance Support No upper extremity supported;Feet supported Dynamic Sitting-BalanceLateral lean;Forward lean;Reaching for objects;Reaching across midline Dynamic Sitting-Sitting Surface Bed Toilet Dynamic Sitting-Level of Assistance Distant supervision Static Standing Balance Static Standing-Balance Support Bilateral upper extremity supported Static Standing-Standing Surface Floor Static Standing-Level of Assistance Minimum assistance Dynamic Standing Balance Dynamic Standing-Balance Support Unilateral upper extremity supported;No upper extremity supported Dynamic Standing-Balance Lateral lean;Forward lean;Reaching for objects;Reaching across midline Dynamic Standing-Standing Surface Floor Dynamic Standing-Level of Assistance Minimum assistance Dynamic Standing- Comments Limited dynamic standing tolerance during ADLs after ambulation to bathroom (required >2 minute seated rest break) Grooming Grooming: Where assessed Chair Grooming: Level of assistance Moderate Assist Set up task; Total balance Grooming: Assistance with Other (Comment) Unable to tolerate prolonged standing for task performance Toileting Toileting: Where assessed Toilet Toileting: Level of assistance Moderate Assist Mod task; Min balance Toileting: Assistance with Posterior;Perineal hygiene;Clothing management up;Clothing management down Bed Mobility Bed Mobility Yes Bed Mobility 1 Bed Mobility From 1 Supine HOB flat Bed Mobility Type 1 To Bed Mobility to 1 Edge of bed Level of Assistance 1 Standby Assist Bed Mobility Comments 1 Increased time; compensatory movementsfor force production; SBA for balance Transfers Transfer Yes Gait belt used for all OOB activity Transfer 1 Transfer From 1 Sit Transfer Type 1 To and from Transfer to 1 Stand Technique 1 Sit to stand;Stand to sit Transfer Device 1 Wheeled walker Transfer Level of Assistance1 Minimum Assist Trials/Comments 1 Assist for force production and controlled descent; Min cues for optimal postioning and hand placement. 3 trials (1 EOB, 2 toilet height) Transfers 2 Trials/Comments 2 Patient performed functional room mobility to bathroom (~12-15 feet) with wheeledwalker and min assist/increased time. Patient required seated rest break 2/2 dizziness/fatigue. Toilet Transfers Toilet Transfer Type To and from Toilet Transfer to Standard toilet Toilet Transfer Technique Ambulating Toilet Transfer: Equipment Wheeled walker;Grab bar Toilet Transfers Minimal assistance Toilet Transfers Comments Assist for force production and controlled descent; Min cues for optimal postioning and hand placement Cognition Cognition Comments Verbalized awareness of slowed cognition/processing speed during admission. Patient educated on potential impact on IADL task management (medication) and patient verbalized understanding and use of compensatory strategies and/or assistance to ensure accurate management. Arousal/Alertness Appropriate responses to stimuli;Delayed responses to stimuli Attention Span Appears intact;Controlled environment Current communication Appears Intact Orientation Oriented X4 (person, place, time, situation) Following Commands Follows multistep commands with increased time Safety Judgment Good awareness of safety precautions Awareness of Errors Good awareness of errors made Problem Solving Assistance required to implement solutions;Assistance required to generate solutions Compliance/Behavior Easy to engage Activity Tolerance Activity Tolerance Comments CYRUS: Hard Other Comments Comments Patient presents with dizziness following mobility this date VSS and RN notified; Delayed processing speed/motor planning observed. Daily Activity - 6 Clicks Putting on and taking off regular lower body clothing 2 Bathing 2 Toileting 2 Putting on and taking off upper body clothing 3 Personal Grooming 2 Eating Meals 3 Total Score (range 6-24) 14 Score Interpretation 33.39 Assessment Problem List Decreased cognition;Decreased safe judgment during ADL;Decreased endurance;Decreased balance;Decreased functional mobility;Decreased ADL independence;Decreased IADL independence Barriersto Discharge Current Mobility Status;Decreased caregiver support;Cognition Current ADL status; Fallrisk Plan Plan Continue with current plan;If this is the last note, consider this the discharge summary Recommendation/Plan OT Recommendation Inpatient Rehab Facility Patient at high risk for Falls;Readmission;Injury due todecreased ability to care for self;Injury due to reduced functional status;Injury due to impaired cognition;Injury due to balance deficits;Injury at home as patient has not returned to prior level offunction Recommend Inpatient Rehab/Acute Rehab due to Ability to actively participate in intensive therapy 3 hours/day, 5 days/week or 900 minutes per week;Highly motivated to participate in therapy;Requires greater than 25% physical assistance with most mobility tasks;Requires greater than 25% physical assistance with most ADL tasks;Not at baseline due to impaired ability to complete ADLs;Impaired ability to complete functional mobility OT Frequency 3-5x/wk Treatment/Interventions ADL/IADL retraining;Balance Training;Compensatory technique education;Cognitive retraining;Endurance training;Functional activity;Functional mobility training;Functional transfer training;Therapeutic exercise;Therapeutic activity;Strengthening Progress Slow progress, medical status limitations OT - Next Appointment 06/29/22 OT - OK to Discharge No OT Notes 06/25/2022 12:01 PM Progress Notes signed by Chula Melgar OT 06/27/2022 11:01 AM Progress Notes signed by So Lawrence, OT , PT Eval and Treat Last Documented OT ASSESSMENT FLOWSHEET LAST DOCUMENTED (most recent) PT Evaluation - 06/27/22 0937 General Session Type Treatment Safe Environment Arm Band Checked;Call Light within Reach;Notified RN;Patient found in Supine Pt. in chair at end of session. Precautions Precautions Fall risk Precaution Comments PPE: KN95, gloves Grooming Grooming: Where assessed Chair Grooming: Level of assistance Moderate Assist Set up task; Total balance Grooming: Assistance with Other (Comment) Unable to tolerate prolonged standing for task performance Toileting Toileting: Where assessed Toilet Toileting: Level of assistance Moderate Assist Mod task; Min balance Toileting: Assistance with Posterior;Perineal hygiene;Clothing management up;Clothing management down Toilet Transfers Toilet Transfer Type To and from Toilet Transfer to Standard toilet Toilet Transfer Technique Ambulating Toilet Transfer: Equipment Wheeled walker;Grab bar Toilet Transfers Minimal assistance Toilet Transfers Comments Assist for force production and controlled descent; Min cues for optimal postioning and hand placement Activity Tolerance Activity Tolerance Comments CYRUS: Hard Pain Assessment Pain Assessment 0-10 Pain Score 2 Pain Orientation Generalized Cognition Cognition Comments Verbalized awareness of slowed cognition/processing speed during admission. Patient educated on potential impact on IADL task management (medication) and patient verbalized understanding and use of compensatory strategies and/or assistance to ensure accurate management. Arousal/Alertness Appropriate responses to stimuli;Delayed responses to stimuli Attention Span Appears intact;Controlled environment Current communication Appears Intact Orientation Oriented X4 (person, place, time, situation) Following Commands Follows multistep commands with increased time Safety Judgment Good awareness of safety precautions Awareness of Errors Good awareness of errors made Problem Solving Assistance required to implement solutions;Assistance required to generate solutions Compliance/Behavior Easy to engage Balance Balance Yes Static Sitting Balance Static Sitting-Balance Support No upper extremity supported;Feet supported Static Sitting-Sitting Surface Bed;Chair Static Sitting-Level of Assistance Independent Dynamic Sitting Balance Dynamic Sitting-Balance Support No upper extremity supported;Feet supported Dynamic Sitting-BalanceLateral lean;Forward lean;Reaching for objects;Reaching across midline Dynamic Sitting-Sitting Surface Bed Toilet Dynamic Sitting-Level of Assistance Distant supervision Static Standing Balance Static Standing-Balance Support Bilateral upper extremity supported Static Standing-Standing Surface Floor Static Standing-Level of Assistance Minimum assistance Dynamic Standing Balance Dynamic Standing-Balance Support Unilateral upper extremity supported;No upper extremity supported Dynamic Standing-Balance Lateral lean;Forward lean;Reaching for objects;Reaching across midline Dynamic Standing-Standing Surface Floor Dynamic Standing-Level of Assistance Minimum assistance Dynamic Standing- Comments Limited dynamic standing tolerance during ADLs after ambulation to bathroom (required >2 minute seated rest break) Bed Mobility Bed Mobility Yes Bed Mobility 1 Bed Mobility From 1 Supine HOB flat Bed Mobility Type 1 To Bed Mobility to 1 Edge of bed Level of Assistance 1 Standby Assist Bed Mobility Comments 1 Increased time; compensatory movementsfor force production; SBA for balance Transfers Transfer Yes Gait belt used for all OOB activity Transfer 1 Transfer From 1 Sit Transfer Type 1 To and from Transfer to 1 Stand Technique 1 Sit to stand;Stand to sit Transfer Device 1 Wheeled walker Transfer Level of Assistance1 Minimum Assist Trials/Comments 1 Assist for force production and controlled descent; Min cues for optimal postioning and hand placement. 3 trials (1 EOB, 2 toilet height) Transfers 2 Trials/Comments 2 Patient performed functional room mobility to bathroom (~12-15 feet) with wheeledwalker and min assist/increased time. Patient required seated rest break 2/2 dizziness/fatigue. PT TREATMENT (most recent) PT Treatment - 06/27/22 0937 PT Last Visit Session Type Treatment Safe Environment Arm Band Checked;Call Light within Reach;Notified RN;Patient found in Supine Pt. in chair at end of session. Precautions Precautions Fall risk Precaution Comments PPE: KN95, gloves Activity Tolerance Activity Tolerance Comments CYRUS: Hard Pain Assessment Pain Assessment 0-10 Pain Score 2 Pain Orientation Generalized Cognition Cognition Comments Verbalized awareness of slowed cognition/processing speed during admission. Patient educated on potential impact on IADL task management (medication) and patient verbalized understanding and use of compensatory strategies and/or assistance to ensure accurate management. Arousal/Alertness Appropriate responses to stimuli;Delayed responses to stimuli Attention Span Appears intact;Controlled environment Current communication Appears Intact Orientation Oriented X4 (person, place, time, situation) Following Commands Follows multistep commands with increased time Safety Judgment Good awareness of safety precautions Awareness of Errors Good awareness of errors made Problem Solving Assistance required to implement solutions;Assistance required to generate solutions Compliance/Behavior Easy to engage Balance Balance Yes Static Sitting Balance Static Sitting-Balance Support No upper extremity supported;Feet supported Static Sitting-Sitting Surface Bed;Chair Static Sitting-Level of Assistance Independent Dynamic Sitting Balance Dynamic Sitting-Balance Support No upper extremity supported;Feet supported Dynamic Sitting-BalanceLateral lean;Forward lean;Reaching for objects;Reaching across midline Dynamic Sitting-Sitting Surface Bed Toilet Dynamic Sitting-Level of Assistance Distant supervision Static Standing Balance Static Standing-Balance Support Bilateral upper extremity supported Static Standing-Standing Surface Floor Static Standing-Level of Assistance Minimum assistance Dynamic Standing Balance Dynamic Standing-Balance Support Unilateral upper extremity supported;No upper extremity supported Dynamic Standing-Balance Lateral lean;Forward lean;Reaching for objects;Reaching across midline Dynamic Standing-Standing Surface Floor Dynamic Standing-Level of Assistance Minimum assistance Dynamic Standing- Comments Limited dynamic standing tolerance during ADLs after ambulation to bathroom (required >2 minute seated rest break) Bed Mobility Bed Mobility Yes Bed Mobility 1 Bed Mobility From 1 Supine HOB flat Bed Mobility Type 1 To Bed Mobility to 1 Edge of bed Level of Assistance 1 Standby Assist Bed Mobility Comments 1 Increased time; compensatory movementsfor force production; SBA for balance Transfers Transfer Yes Gait belt used for all OOB activity Transfer 1 Transfer From 1 Sit Transfer Type 1 To and from Transfer to 1 Stand Technique 1 Sit to stand;Stand to sit Transfer Device 1 Wheeled walker Transfer Level of Assistance1 Minimum Assist Trials/Comments 1 Assist for force production and controlled descent; Min cues for optimal postioning and hand placement. 3 trials (1 EOB, 2 toilet height) Transfers 2 Trials/Comments 2 Patient performed functional room mobility to bathroom (~12-15 feet) with wheeledwalker and min assist/increased time. Patient required seated rest break 2/2 dizziness/fatigue. PT Notes Notes from 06/25/22 through 06/27/22 No notes of this type exist for this encounter. , Referral Order Details (96h ago through 96h from now) None , Wound Info Only Patient Lines/Drains/Airways Status Active Wound / Pressure ulcer / [place] / Negative Pressure Wound Wound 06/12/22 Hematoma Left Neck Hematoma in the IJ Date First Assessed 06/12/22 Site Neck Time First Assessed 0410 Days 15 Present on Hospital Admission: No Wound Type: Hematoma Location Orientation: Left Wound Description (Comments): Hematoma in the IJ Assessments Row Name 06/26/22202906/26/2272406/25/221999 Wound Status -- Evolving -- Site Assessment -- Clean;Dry;Intact -- Dressing -- Dry dressing -- Wound 06/13/22 Rash Anterior;Right Thigh Date First Assessed 06/13/22 Site Thigh Time First Assessed 0127 Days 14 Wound Type: Rash Location Orientation: Anterior;Right Assessments Row Name 06/26/22202906/26/2272406/25/221999 Wound Status -- Evolving -- Site Assessment -- Clean;Dry;Intact -- Marie-wound Assessment -- Color appropriate for ethnicity -- Dressing -- Transparent film -- Wound 06/21/22 MASD (Moisture associated skin damage) Bilateral Buttocks Date First Assessed 06/21/22 Site Buttocks Time First Assessed 1541 Days 5 Wound Type: MASD (Moisture associated skin damage) Location Orientation: Bilateral Assessments Row Name 06/26/22202906/26/2272406/25/221999 Wound Status Evolving Evolving Evolving Site Assessment Fragile;Painful Clean;Dry;Intact Fragile;Painful Marie-wound Assessment -- Color appropriate for ethnicity -- Closure Open to air -- Open to air Dressing -- Open to air -- Interventions -- -- Cleansed , Oxygen Info Only Default Flowsheet Data (most recent) Endurance Tests No documentation. Default Flowsheet Data (last 48 hours) Oxygen Row Name 06/27/22 1021 06/27/22 1000 06/27/22 0937 06/27/22 0744 06/27/22 0347 Oxygen Therapy/Pulse Ox O2 Therapy -- -- -- None (Room air) None (Room air) SpO2 97 % 98 % 95 % 99 % 94 % Row Name 06/27/22 0047 06/26/22202106/26/22 1529 06/26/22 0743 06/26/22 0320 Oxygen Therapy/Pulse Ox O2 Therapy -- None (Room air) None (Room air) None (Room air) None (Room air) FiO2 (%) 30 % -- -- -- -- SpO2 -- 96 % 99 % 99 % 96 % Row Name 06/26/22 0100 06/25/22 1943 06/25/22 1618 Oxygen Therapy/Pulse Ox O2 Therapy -- None (Room air) None (Room air) FiO2 (%) 30 % -- -- SpO2 -- 92 % 96 % OR ART DIRECTOR * Consults, Subsequent - Dora Delarosa NP - 06/27/2022 1:13 PM CST Endocrinology & Diabetes Progress Note Patient: Adelia Garvin Jr., 51 y.o. male (: 1970) Room: [place] [address] [address] ( ) LOS: 23 Adelia Garvin Jr. is a 51 y.o. male with PMH significant for T1DM on insulin pump, atrial fibrillation, HTN, HLD, CAD s/p PCI, ESRD on PD, and hyperparathyroidism who presented to the hospital with weakness, N/V, diarrhea and chest pain. Hospital course complicated by respiratory failure requiring intubation, cardiogenic shock and agitation. The Endocrinology/Diabetes Service is providing diabetes/insulin pump management and discharge planning recommendations during this hospitalization. Interval Events & Subjective There were no acute events overnight. Mr. Garvin reports his appetite is so- so. I'm tired, but otherwise OK . Denies nausea/vomiting/diarrhea, chest pain, shortness of breath, fever or chills today. Peritoneal dialysis continues during night. Voiding without difficulty; passing flatus, BM 2-3 days ago. Diet: Adult Diet Restricted; 2 GM Sodium; Consistent Carbohydrate Over the previous 24 hours, blood glucose not at target with range of 98-400 mg/dl with 121 units TDD insulin coverage. Peritoneal dialysis likely contributed to severe hyperglycemia yesterday morning as blood glucose trending up with start of PD. Target inpatient blood glucose is 100-180 mg/dl. AMblood glucose was 350 mg/dl; treated with lispro 18 units (8 units scheduled insulin for breakfast and 10 units correction) subcutaneously. Peritoneal dialysis likely contributed to severe hyperglycemia this morning. Pre-lunch blood glucose was 228 mg/dl. Recent Labs Lab Units 06/27/22 1137 06/27/22 0754 06/27/22 0351 06/27/22 0154 06/26/22 2114 06/26/22 1753 06/26/22 1316 06/26/22 1109 06/26/22 0907 06/26/22 0725 GLUCOSE mg/dL -- -- 274* -- -- -- -- -- -- -- POC GLUCOSE MONITOR mg/dL 228* 350* -- 276* 184 98 202* 320* 400* 393* Interval Review of Systems Twelve point ROS reviewed and negative except as noted in HPI. All other systems negative. Vitals & Exam Temp: [36.6 ??C (97.9 ??F)-37.2 ??C (99 ??F)] 36.6 ??C (97.9 ??F) Pulse: [69-76] 74 BP: (101-117)/(53-73) 101/58 Resp: [18] 18 SpO2: [94 %-99 %] 97 % I/O this shift: In: - Out: 200 [Urine:200] Physical Exam Gen : pleasant 51 year old male sitting quietly in chair in no acute distress, alert, appropriate, cooperative, appears stated age, well-developed, well-nourished HENT : normocephalic, atraumatic, moist mucus membranes Eyes : conjunctiva clear, anicteric, no proptosis/exophthalmos/lid lag, glasses in place Pulm : non-labored, supplemental oxygen Extr : atraumatic, no cyanosis/clubbing/edema Skin : turgor normal, no rashes/wounds/lesions, Dexcom CGM LLQ abdomen, insulin pump insertion site Neuro : alert, speech fluent, comprehension intact, moving all extremities, IV access LUE/RUE, HD catheter right chest wall Psych : cooperative, appropriate affect & mood, good insight & judgment Data Medications, labs, imaging, and diagnostics independently reviewed in Epic and commented on below. Lab Results Component Value Date TSH 0.80 03/21/2017 Lab Results Component Value Date CHOL 149 06/04/2022 TRIG 183 (H) 06/21/2022 HDL 34 (L) 06/04/2022 LDLCALC 82 06/04/2022 Lab Results Component Value Date 25HYDROVITD 22.7 (L) 03/22/2017 Lab Results Component Value Date HGBA1C 7.8 (H) 06/04/2022 Assessment & Plan 51 y.o. male with PMH significant for T1DM on insulin pump, atrial fibrillation, HTN, HLD, CAD s/p PCI, ESRD on PD, and hyperparathyroidism who presented to the hospital with weakness, N/V, diarrhea and chest pain. Hospital course complicated by respiratory failure requiring intubation, cardiogenicshock and agitation. 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, with rodent exterminator use of insulin, complicated by ESRD on PD, CAD s/p PCI, CHF - HbA1c 7.4% - Uses Omnipod and Dexcom G6 at home, not currently on this- doesn't have the supplies -On significantly higher basal rates on pump at night due to peritoneal dialysis -home settings: Basal rate 0330 >>1.7 0800 >> 0.8 2000 >> 5.8 ICR1:6.5 ISF1:25 [id number] TIA 4 Over the previous 24 hours, blood glucose not at target with range of 98-400 mg/dl with 121 units TDD insulin coverage. Peritoneal dialysis likely contributed to severe hyperglycemia yesterday morning as blood glucose trending up with start of PD. Target inpatient blood glucose is 100-180 mg/dl. AMblood glucose was 350 mg/dl; treated with lispro 18 units (8 units scheduled insulin for breakfast and 10 units correction) subcutaneously. Peritoneal dialysis likely contributed to severe hyperglycemia this morning. Pre-lunch blood glucose was 228 mg/dl. Inpatient glycemic management complicated by variable oral intake, stress, impaired renal function and acute illness. Glycemia trending up overnight with resumption of peritoneal dialysis. Mr.n Garvin has pump and CGM supplies at the bedside, therefore recommend resuming insulin pump today. We will continue to intensely monitor blood glucose and titrate insulin as needed to optimize glycemic control to avoid hypo glycemic/hyperglycemic events. Recommendations for diabetes management were discussed with the primary team. Insulin pump and supplies at bedside. Mr. Garvin is alert and oriented x 3 and has the mental capacity and manual dexterity to self-administer his own insulin pump. We reviewed the need to completethe insulin pump bedside log as a stipulation to use the insulin pump as an inpatient. He agrees tocomplete the insulin pump bedside log as required. Insulin pump settings adjusted to reflect current insulin requirements during this admission. Recommendations: TIME BASAL RATE TOTAL BASAL DAILY DOSE: 0330 1.7 units/hour 0800 0.8 units/hour 2000 5.8 units/hour ICR: 1:6.5 SENSITIVITY: 1:25 IAT: 4 hours TARGET: 120 If pump fails, give lispro 4 units once and restart insulin pump. If pump supplies are not available: - Lantus 35 units qAM - Humalog 10 units with meals - Continue resistant correction scale TID/HS/0200 - NPH 45 units with start of peritoneal dialysis session - POC glucoses TID/HS/0200 Discharge recommendations: - likely insulin pump; settings TBD # ESRD on PD - Serum Cr = 10.21 today - CKD and ESRD are independent risk factors for hypoglycemia ## Discharge Planning - Follow-up with home green house manager -- Dora Delarosa NP Endocrinology, Metabolism, & Lipid Research Contact Info: New Consults: [phone]) General Endocrine (Non-Diabetes): [phone] (Check 'Treatment Team' assignment for Diabetes 1 vs 2 vs 3) Diabetes 1: Diabetes Fellow: [phone] Diabetes 2: Dora Delarosa NP: [phone] Diabetes 3: See Treatment Team Provider (or call Dora Delarosa, above) Diabetes After-Hours & Weekends: Diabetes Fellow OR ART DIRECTOR * Plan of Care - Adelita Self RN - 06/26/2022 3:00 PM CST Problem: Lack of Knowledge: Goal: Knowledge of disease or condition will improve Outcome: Progressing Goals: Clinical Goals for the Shift: up to chair Summary: Up to chair for about 2 hours. OR ART DIRECTOR * Plan of Care - Gucci Macedo, DEFLECTOR OPERATOR - 06/26/2022 1:28 AM CDT BEN Continue on NPPV * Consults, Subsequent - James Horvath MD - 06/25/2022 12:17 PM CDT NEPHROLOGY CONSULT SUBSEQUENT VISIT INTERVAL HISTORY: NAEO. Patient continues to be more alert. Was able to walk a few feet with PT today. Tolerated PD well. About 2.4L of UF. OBJECTIVE Vitals: 06/25/22 0428 06/25/22 0740 06/25/22 0925 06/25/22 0941 BP: 105/50 111/54 121/55 118/63 BP Location: Left arm Left arm Right arm Right arm Patient Position: Lying Lying Sitting Sitting Pulse: 82 81 82 Resp: 18 18 Temp: 37.1 ??C (98.8 ??F) 37 ??C (98.6 ??F) TempSrc: Axillary Axillary SpO2: 100% 95% 93% Weight: 119.7 kg (263 lb 14.3 oz) Height: PHYSICAL EXAM: General: Alert and awake Eyes: PERRL. Sclera nonicteric. ENT: MMM. Trialysis line in L neck. Cardiac: Regular rate and rhythm. Pulm: Soft crackles throughout lung charles GI/Abd: Soft, obese, nondistended, BS positive Lymphatic: No significant LAD Extremities: No peripheral cyanosis. Warm extremities 1+ pitting edema. Skin: No rash or bruises Date 06/24/22 07 - 06/25/2259 06/25/22 07 - 06/26/22 0659 Shift 1712-6692 6502-7650 24 Hour Total 8659-5361 0805-1719 24 Hour Total INTAKE Other 11690 55433 Shift Total(mL/kg) 55925(101.9) 36909(101.9) OUTPUT Other 69993 29775 Shift Total(mL/kg) 47505(122) 69330(122) NET -2404 -2404 Weight (kg) 119 119.7 119.7 119.7 119.7 119.7 LABORATORY DATA: Recent Labs Lab Units 06/24/22 0410 06/23/22 1434 06/23/22 1401 WBC K/cumm 4.3 5.4 5.9 HEMOGLOBIN g/dL 7.9* 8.2* 4.6* PLATELETS K/cumm 206 215 253 Recent Labs Lab Units 06/25/22 0436 06/24/22 0410 06/23/22 1435 06/23/22 1401 06/23/22 0421 06/22/22 2128 06/22/22 1521 06/21/22 2155 06/21/22 0838 06/19/22 0909 06/18/22 2250 SODIUM mmol/L 135 134* 137 136 -- -- 138 136 139 < > 140 POTASSIUM PLASMA mmol/L 3.9 3.9 3.6 3.4 -- -- 3.7 4.0 4.0 < > 4.3 CHLORIDE mmol/L 93* 94* 96* 96* -- -- 99 98 101 < > 103 CO2 mmol/L 28 25 25 25 -- -- 27 24 27 < > 22 BUN SERUM mg/dL 44* 46* 45* 45* -- -- 42* 41* 36* < > 35* CREATININE mg/dL 9.57* 8.83* 8.33* 8.21* -- -- 7.25* 6.03* 5.26* < > 5.01* ALBUMIN g/dL -- -- -- -- -- -- 2.9* 2.7* 2.7* < > 2.8* CALCIUM mg/dL 8.6 8.5 8.3* 8.3* -- -- 8.6 8.4* 8.4* < > 8.7 MAGNESIUM mg/dL -- -- -- 2.8* 2.9* -- 2.9* 2.8* 2.8* < > 3.1* PHOSPHORUS PLASMA mg/dL 7.9* -- -- 5.2* -- 5.8* -- 4.8* -- < > 5.2* VANCOMYCIN RM mcg/mL -- -- -- -- -- -- -- -- -- -- 38.4 < > = values in this interval not displayed. Lab Results Component Value Date CALCIUM 8.6 06/25/2022 CAION 4.62 06/07/2022 PHOS 7.9 (H) 06/25/2022 Lab Results Component Value Date IRON 50 06/07/2022 TIBC 130 (L) 06/07/2022 TRANSFERSAT 38 06/07/2022 FERRITIN 2,062 (H) 06/07/2022 CURRENT MEDICATIONS: aspirin, 81 mg, oral, Daily atorvastatin, 80 mg, oral, Daily calcitRIOL, 0.25 mcg, oral, Daily [Held by Provider] calcium acetate(phosphat bind), 667 mg, oral, QID clopidogreL, 75 mg, oral, Daily ezetimibe, 10 mg, oral, Daily heparin, 5,000 Units, subcutaneous, Q8H ASHLEY insulin glargine, 33 Units, subcutaneous, QAM insulin lispro, 0-10 Units, subcutaneous, TID with meals insulin lispro, 0-5 Units, subcutaneous, Nightly insulin lispro, 0-5 Units, subcutaneous, Daily insulin lispro, 8 Units, subcutaneous, TID with meals insulin NPH, 35 Units, subcutaneous, Nightly isosorbide mononitrate ER, 30 mg, oral, Daily losartan, 12.5 mg, oral, Daily metoprolol tartrate, 50 mg, oral, BID [START ON 06/26/2022] pantoprazole DR, 40 mg, oral, Daily polyvinyl alcohol-povidone, 1 drop, each eye, QID ranolazine ER, 500 mg, oral, BID ASSESSMENT AND RECOMMENDATIONS ESRD on PD - Schedule: nightly - last OP HD: 06/03/2022 - Access: Lt LQ PD catheter Patient was on CVVHDF from 06/07-06/15, when attempt was made to switch back to CCPD given line issues. Was on continuous PD 06/15-06/18. CRRT again from 06/18- 06/19, SLED 06/20. CCPD resumed 06/21. -Continue with CCPD tonight with his home prescription. -Daily dressing changes for PD catheter, with gentamycin -Daily BM to prevent catheter malpositioning 2. Hypertension - Currently well controlled - adjust UF accordingly 3. Hyperkalemia - Potassium 3.9 - renal diet 4. Secondary hyperparathyroidism of renal origin - Calcium 8.6 and phos 7.9 - Recommend re-starting phos binder (PhosLo) 5. Anemia of ESRD - hgb 7.9 - CORRINE and IV iron per outpatient unit, resume if prolonged hospital stay - transfuse for hgb < 7.0 Patient seen and discussed with my attending, Dr. Driver 06/25/22 James Horvath MD Nephrology Fellow PGY-4 Consult 1 Service Contact (phone): [phone] After hours and weekends: please page [phone] Cosigned by Miriam Driver MD at 06/28/2022 8:11 AM SENIOR ART DIRECTOR OR ART DIRECTOR Associated attestation - Miriam Driver MD - 06/28/2022 8:11 AM SENIOR ART DIRECTOR I have seen and examined the patient on 06/25/22. I agree with the findings and plan of care as documented in the nephrology fellow's note. Miriam Driver MD Biology Department Chair Division of Nephrology * Plan of Care - Adelita Self, LUAN - 06/25/2022 10:00 AM CDT Problem: Health Behavior: Goal: Understanding of discharge needs will improve Outcome: Progressing Goals: Clinical Goals for the Shift: up to chair Summary: Up to chair for short period this am. * Plan of Care - Wandy Garay, DEFLECTOR OPERATOR - 06/25/2022 4:45 AM CDT NPPV Situation: Patient was placed on their hospital provided NPPV machine. Settings: NPPV Mode: CPAP PEEP/CPAP/EPAP Set (cmH2O): 11 cm H20 FiO2 (%): 40 %. Tolerance: The patient tolerated the NPPV without issue. Plan: Proceed as ordered and continue to monitor the patient. * Consults, Subsequent - James Horvath MD - 06/24/2022 4:48 PM CDT NEPHROLOGY CONSULT SUBSEQUENT VISIT INTERVAL HISTORY: NAEO. Patient much more alert and awake today. Tolerating PD well. Has dry skin which he reports isdue to contrast he received previously. Glucose very uncontrolled during his PD tx. OBJECTIVE Vitals: 06/24/22 0715 06/24/22 0808 06/24/22 1405 06/24/22 1621 BP: 97/56 111/66 (!) 111/42 BP Location: Left arm Left arm Left arm Patient Position: Sitting Lying;HOB 30 degrees Lying;HOB 30 degrees Pulse: 75 98 92 Resp: 18 18 Temp: 37 ??C (98.6 ??F) 37.9 ??C (100.2 ??F) TempSrc: Oral Oral SpO2: 95% 96% 93% Weight: 119 kg (262 lb 5.6 oz) Height: PHYSICAL EXAM: General: Alert and awake Eyes: PERRL. Sclera nonicteric. ENT: MMM. Trialysis line in L neck. Cardiac: Regular rate and rhythm. Pulm: Soft crackles throughout lung charles GI/Abd: Soft, obese, nondistended, BS positive Lymphatic: No significant LAD Extremities: No peripheral cyanosis. Warm extremities 1+ pitting edema. Skin: No rash or bruises Date 06/23/22 07 - 06/24/22 0659 06/24/22 07 - 06/25/22 0659 Shift 24 Hour Total 24 Hour Total INTAKE Other 50890 30951 IV Piggyback 250 250 Shift Total(mL/kg) 250(2.1) 63927(101.5) 86048(103.6) OUTPUT Urine(mL/kg/hr) 250(0.2) 250(0.1) Emesis/NG output 0 0 Other 93237 03541 Stool 0 0 Shift Total(mL/kg) 59030(106.5) 24323(106.5) NET 846 -900 -210 Weight (kg) 119.9 119.9 119.9 119 119 119 LABORATORY DATA: Recent Labs Lab Units 06/24/22 0410 06/23/22 1434 06/23/22 1401 WBC K/cumm 4.3 5.4 5.9 HEMOGLOBIN g/dL 7.9* 8.2* 4.6* PLATELETS K/cumm 206 215 253 Recent Labs Lab Units 06/24/22 0410 06/23/22 1435 06/23/22 1401 06/23/22 0421 06/22/22 2128 06/22/22 1521 06/21/22 2155 06/21/22 0838 06/19/22 0909 06/18/22 2250 06/18/22 0852 SODIUM mmol/L 134* 137 136 -- -- 138 136 139 < > 140 143 POTASSIUM PLASMA mmol/L 3.9 3.6 3.4 -- -- 3.7 4.0 4.0 < > 4.3 4.0 CHLORIDE mmol/L 94* 96* 96* -- -- 99 98 101 < > 103 104 CO2 mmol/L 25 25 25 -- -- 27 24 27 < > 22 23 BUN SERUM mg/dL 46* 45* 45* -- -- 42* 41* 36* < > 35* 40* CREATININE mg/dL 8.83* 8.33* 8.21* -- -- 7.25* 6.03* 5.26* < > 5.01* 6.24* ALBUMIN g/dL -- -- -- -- -- 2.9* 2.7* 2.7* < > 2.8* 3.3* CALCIUM mg/dL 8.5 8.3* 8.3* -- -- 8.6 8.4* 8.4* < > 8.7 9.5 MAGNESIUM mg/dL -- -- 2.8* 2.9* -- 2.9* 2.8* 2.8* < > 3.1* 2.9* PHOSPHORUS PLASMA mg/dL -- -- 5.2* -- 5.8* -- 4.8* -- < > 5.2* -- VANCOMYCIN RM mcg/mL -- -- -- -- -- -- -- -- -- 38.4 51.8 < > = values in this interval not displayed. Lab Results Component Value Date CALCIUM 8.5 06/24/2022 CAION 4.62 06/07/2022 PHOS 5.2 (H) 06/23/2022 Lab Results Component Value Date IRON 50 06/07/2022 TIBC 130 (L) 06/07/2022 TRANSFERSAT 38 06/07/2022 FERRITIN 2,062 (H) 06/07/2022 CURRENT MEDICATIONS: aspirin, 81 mg, oral, Daily atorvastatin, 80 mg, oral, Daily calcitRIOL, 0.25 mcg, oral, Daily [Held by Provider] calcium acetate(phosphat bind), 667 mg, oral, QID clopidogreL, 75 mg, oral, Daily ezetimibe, 10 mg, oral, Daily gentamicin, , topical, Daily heparin, 5,000 Units, subcutaneous, Q8H ASHLEY insulin glargine, 33 Units, subcutaneous, QAM insulin lispro, 0-10 Units, subcutaneous, TID with meals insulin lispro, 0-5 Units, subcutaneous, Nightly insulin lispro, 0-5 Units, subcutaneous, Daily insulin lispro, 8 Units, subcutaneous, TID with meals insulin NPH, 35 Units, subcutaneous, Nightly isosorbide mononitrate ER, 30 mg, oral, Daily metoprolol tartrate, 50 mg, oral, BID pantoprazole, 40 mg, intravenous, BID polyvinyl alcohol-povidone, 1 drop, each eye, QID ranolazine ER, 500 mg, oral, BID peritoneal fluid with or without additives for CCPD, peritoneal fluid with or without additives for CCPD, peritoneal fluid with or without additives for CCPD, peritoneal fluid with or without additives for CCPD, ASSESSMENT AND RECOMMENDATIONS ESRD on PD - Schedule: nightly - last OP HD: 06/03/2022 - Access: Lt LQ PD catheter Patient was on CVVHDF from 06/07-06/15, when attempt was made to switch back to CCPD given line issues. Was on continuous PD 06/15-06/18. CRRT again from 06/18- 06/19, SLED 06/20. CCPD resumed 06/21. -Continue with CCPD tonight with his home prescription. -Okay to remove trialysis -Okay to start NICOLÁS/ARB for HF -Daily dressing changes for PD catheter, with gentamycin -Daily BM to prevent catheter malpositioning Patient seen and discussed with my attending, Dr. Driver 06/24/22 James Horvath MD Nephrology Fellow PGY-4 Consult 1 Service Contact (phone): [phone] After hours and weekends: please page [phone] Cosigned by Miriam Driver MD at 06/24/2022 8:25 PM CDT Associated attestation - Miriam Driver MD - 06/24/2022 8:25 PM CDT I have seen and examined the patient on 06/24/22. I agree with the findings and plan of care as documented in the nephrology fellow's note. Agree with endocrinology. Continue PD settings. Miriam Driver MD Biology Department Chair Division of Nephrology * Plan of Care - Manda Ramsay RN - 06/24/2022 4:30 PM CDT Goals: Clinical Goals for the Shift: Monitor vs, tele, labs, blood glucose levels; manage discomfort. PT/OT/PD Summary: Problem: Health Behavior: Goal: Understanding of discharge needs will improve Outcome: Progressing Problem: Lack of Knowledge: Goal: Ability to state ways to decrease the risk of falls will improve Outcome: Progressing Problem: Safety: Goal: Will remain free from falls Outcome: Progressing Goal: Will remain free from injury from falls Outcome: Progressing Goal: Will remain free from falls and injury in home environment Outcome: Progressing Problem: Lack of Knowledge: Goal: Knowledge of disease or condition and prescribed therapeutic regimen will improve Outcome: Progressing Problem: Coping: Goal: Level of anxiety will decrease Outcome: Progressing Problem: Sensory: Goal: Pain level will decrease Outcome: Progressing Problem: Lack of Knowledge: Goal: Ability to describe self-care measures that may prevent or decrease complications will improve Outcome: Progressing Goal: Knowledge of disease or condition will improve Outcome: Progressing Goal: Knowledge of the prescribed therapeutic regimen will improve Outcome: Progressing Goal: Knowledge of prevention and discharge planning will improve Outcome: Progressing Problem: Coping: Goal: Ability to adjust to condition or change in health will improve Outcome: Progressing Problem: Fluid Volume: Goal: Ability to maintain a balanced intake and output will improve Outcome: Progressing Problem: Health Behavior: Goal: Ability to identify and alter actions that are detrimental to health will improve Outcome: Progressing Goal: Ability to identify and utilize available resources and services will improve Outcome: Progressing Goal: Ability to manage health-related needs will improve Outcome: Progressing Problem: Nutritional: Goal: Maintenance of adequate nutrition will improve Outcome: Progressing Goal: Progress toward achieving an optimal weight will improve Outcome: Progressing Problem: Physical Regulation: Goal: Complications related to the disease process, condition or treatment will be avoided or minimized Outcome: Progressing Goal: Diagnostic test results will improve Outcome: Progressing Problem: Skin Integrity: Goal: Risk for impaired skin integrity will decrease Outcome: Progressing Problem: Lack of Knowledge: Goal: Ability to develop a pain control plan will improve Outcome: Progressing Goal: Ability to identify pain intensity on a pain scale and rate it consistently will improve Outcome: Progressing Goal: Ability to notify healthcare provider of pain before it becomes unmanageable or unbearable will improve Outcome: Progressing Problem: Medication: Goal: Satisfaction with pain management regimen will improve Outcome: Progressing Problem: Sensory: Goal: Ability to identify factors that increase the pain will improve Outcome: Progressing Goal: Pain level will decrease Outcome: Progressing Problem: Activity: Goal: Ability to return to normal activity level will improve Outcome: Progressing Problem: Lack of Knowledge: Goal: Knowledge of the prescribed therapeutic regimen will improve Outcome: Progressing Problem: Coping: Goal: Ability to cope will improve Outcome: Progressing Problem: Health Behavior: Goal: Identification of resources available to assist in meeting health care needs will improve Outcome: Progressing Problem: Sensory: Goal: Pain level will decrease Outcome: Progressing Problem: Cardiac: Goal: Ability to maintain an adequate cardiac output will improve Outcome: Progressing Goal: Hemodynamic stability will improve Outcome: Progressing Problem: Lack of Knowledge: Goal: Ability to state signs and symptoms to report to health care provider will improve Outcome: Progressing Goal: Knowledge of the prescribed therapeutic regimen will improve Outcome: Progressing Goal: Mental status will improve Outcome: Progressing Problem: Fluid Volume: Goal: Ability to achieve and maintain adequate urine output will improve Outcome: Progressing Problem: Respiratory: Goal: Respiratory status will improve Outcome: Progressing Problem: Lack of Knowledge: Goal: Verbalization of understanding the information provided will improve Outcome: Progressing Problem: Lack of Knowledge: Goal: Ability to develop a pain control plan will improve Outcome: Progressing Goal: Ability to identify pain intensity on a pain scale and rate it consistently will improve Outcome: Progressing Goal: Ability to notify healthcare provider of pain before it becomes unmanageable or unbearable will improve Outcome: Progressing Problem: Medication: Goal: Satisfaction with pain management regimen will improve Outcome: Progressing Problem: Sensory: Goal: Ability to identify factors that increase the pain will improve Outcome: Progressing Goal: Pain level will decrease Outcome: Progressing * Plan of Care - Sasha Leonard SLP - 06/24/2022 2:50 PM CDT Problem: Swallowing Goal: LTG - Patient will tolerate the least restrictive diet consistency to allow for safe consumption of daily meals Outcome: Progressing Goal: STG - Patient will follow recommended swallowing strategies Outcome: Progressing Problem: Swallowing Goal: STG - Patient will demonstrate safe oral intake to advance diet Outcome: Completed Professional Recommendations Diet Solids Recommendation: Regular Diet Liquids Recommendations: Thin/regular Recommended Form of Medications: Crushed Compensatory Strategies/Modifications: Alternate solids and liquids, Single sips, Small bites, Double/repeat swallows to clear Postural Recommendations: Upright Assistance with feeding/swallowing: Frequent supervision, Setup only, Assist with aggressive oral hygiene prior to po Specialty Instructions/Modifications: alert LOCKSTITCH HEMMER if pt coughing with meals LOCKSTITCH HEMMER noted pt was advanced to regular diet (despite recommendation for dysphagia 2), per EMR, pt with no clinical s/s of aspiration (lung sounds, O2 needs, etc.). RN agreeable to PO trials, reported pt slow to respond but no observed difficulty with PO. Pt seated upright in bed and alert t/o session. Pt slow to respond but able to answer basic prompts, follow 1 step commands, and self-fed trials. Pt completed PO trials of thin liquids via regular and large bore straw, puree, dry solid, and pineapple. Pt c/o pain with swallowing (most notable with pineapple). Pt with adequate mastication and complete oral clearance. No overt signs and symptoms of penetration/aspiration t/o trials. Provided edto pt and RN re: updated diet recs, safe swallow strategies, and LOCKSTITCH HEMMER POC, they verbalized understanding and agreement. ST will briefly continue to follow. * Consults, Subsequent - Dora Delarosa NP - 06/24/2022 12:29 PM CDT Endocrinology & Diabetes Progress Note Patient: Adelia Garvin Jr., 51 y.o. male (: 1970) Room: [place] [address] [address] ( ) LOS: 20 Adelia Garvin Jr. is a 51 y.o. male with PMH significant for T1DM on insulin pump, atrial fibrillation, HTN, HLD, CAD s/p PCI, ESRD on PD, and hyperparathyroidism who presented to the hospital with weakness, N/V, diarrhea and chest pain. Hospital course complicated by respiratory failure requiring intubation, cardiogenic shock and agitation. The Endocrinology/Diabetes Service is providing diabetes/insulin pump management and discharge planning recommendations during this hospitalization. Interval Events & Subjective There were no acute events overnight. Mr. Garvin reports his appetite is so- so. I'm tired, but otherwise OK . Denies nausea/vomiting/diarrhea, chest pain, shortness of breath, fever or chills today. Peritoneal dialysis continues during night. Voiding without difficulty; passing flatus, BM last night. Diet: Adult Diet Restricted; 2 GM Sodium; Consistent Carbohydrate Over the previous 24 hours, blood glucose not at target with range of 55-428 mg/dl with 105 units TDD insulin coverage. Severe hypoglycemia yesterday after Mr. Garvin received 12 units of lispro (10 scheduled and 2 correctional) for lunch, then only ate a few bites of mashed potatoes/gravy. Peritoneal dialysis likely contributed to severe hyperglycemia yesterday morning as blood glucose trending up with start of PD. Target inpatient blood glucose is 100-180 mg/dl. AM blood glucose was 415 mg/dl; treated with lispro 10 units subcutaneously. Peritoneal dialysis and D10W bolus of 250 ml likelycontributed to severe hyperglycemia this morning. Pre-lunch blood glucose was 346 mg/dl. Recent Labs Lab Units 06/24/22 1131 06/24/22 0954 06/24/22 0733 06/24/22 0410 06/24/22 0144 06/24/22 0126 06/23/22 2049 06/23/22 1945 06/23/22 1757 06/23/22 1648 GLUCOSE mg/dL -- -- -- 390* -- -- -- -- -- -- POC GLUCOSE MONITOR mg/dL 346* 411* 415* -- 389* 428* 306* 284* 180 152 Interval Review of Systems Twelve point ROS reviewed and negative except as noted in HPI. All other systems negative. Vitals & Exam Temp: [36.7 ??C (98.1 ??F)-37 ??C (98.6 ??F)] 37 ??C (98.6 ??F) Pulse: [75-102] 75 BP: (97-112)/(56-64) 97/56 Resp: [18] 18 SpO2: [95 %-96 %] 95 % FiO2 (%): [40 %] 40 % No intake/output data recorded. Physical Exam Gen : pleasant 51 year old male resting quietly in bed in no acute distress, alert, appropriate, cooperative, appears stated age, well-developed, well-nourished HENT : normocephalic, atraumatic, moist mucus membranes Eyes : conjunctiva clear, anicteric, no proptosis/exophthalmos/lid lag Pulm : non-labored, supplemental oxygen Extr : atraumatic, no cyanosis/clubbing/edema Skin : turgor normal, no rashes/wounds/lesions Neuro : alert, speech fluent, comprehension intact, moving all extremities, IV access LUE, HD catheter right chest wall Psych : cooperative, appropriate affect & mood, good insight & judgment Data Medications, labs, imaging, and diagnostics independently reviewed in Epic and commented on below. Lab Results Component Value Date TSH 0.80 03/21/2017 Lab Results Component Value Date CHOL 149 06/04/2022 TRIG 183 (H) 06/21/2022 HDL 34 (L) 06/04/2022 LDLCALC 82 06/04/2022 Lab Results Component Value Date 25HYDROVITD 22.7 (L) 03/22/2017 Lab Results Component Value Date HGBA1C 7.8 (H) 06/04/2022 Assessment & Plan 51 y.o. male with PMH significant for T1DM on insulin pump, atrial fibrillation, HTN, HLD, CAD s/p PCI, ESRD on PD, and hyperparathyroidism who presented to the hospital with weakness, N/V, diarrhea and chest pain. Hospital course complicated by respiratory failure requiring intubation, cardiogenicshock and agitation. 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, with prison use of insulin, complicated by ESRD on PD, CAD s/p PCI, CHF - HbA1c 7.4% - Uses Omnipod and Dexcom G6 at home, not currently on this- doesn't have the supplies -On significantly higher basal rates on pump at night due to peritoneal dialysis -home settings: Basal rate 0330 >>1.7 0800 >> 0.8 2000 >> 5.8 ICR1:6.5 ISF1:25 [id number] TIA 4 Over the previous 24 hours, blood glucose not at target with range of 55-428 mg/dl with 105 units TDD insulin coverage. Severe hypoglycemia yesterday after Mr. Garvin received 12 units of lispro (10 scheduled and 2 correctional) for lunch, then only ate a few bites of mashed potatoes/gravy. Peritoneal dialysis likely contributed to severe hyperglycemia yesterday morning as blood glucose trending up with start of PD. Target inpatient blood glucose is 100-180 mg/dl. AM blood glucose was 415 mg/dl; treated with lispro 10 units subcutaneously. Peritoneal dialysis and D10W bolus of 250 ml likelycontributed to severe hyperglycemia this morning. Pre-lunch blood glucose was 346 mg/dl. Inpatient glycemic management complicated by variable oral intake, stress, impaired renal function and acute illness. Glycemia trending up overnight with resumption of peritoneal dialysis recommend increasing basal and bolus insulin with meals and increasing the NPH dose with peritoneal dialysis today. We will continue to intensely monitor blood glucose and titrate insulin as needed to optimize glycemic control toavoid hypoglycemic/hyperglycemic events. Recommendations for diabetes management were discussed with the primary team. Recommendations: - increase Lantus from 28 units to 33 units qAM - increase Humalog from 6 units to 8 units with meals - Continue resistant correction scale TID/HS/0200 - Increase NPH from 30 units to 35 units with start of peritoneal dialysis session - POC glucoses TID/HS/0200 Discharge recommendations: - TBD # ESRD on PD - Serum Cr = 3.87=>5.26=>6.03=>7.25=>8.83 today - CKD and ESRD are independent risk factors for hypoglycemia ## Discharge Planning - Follow-up with home green house manager -- Dora Delarosa NP Endocrinology, Metabolism, & Lipid Research Contact Info: New Consults: [phone]) General Endocrine (Non-Diabetes): [phone] (Check 'Treatment Team' assignment for Diabetes 1 vs 2 vs 3) Diabetes 1: Diabetes Fellow: [phone] Diabetes 2: Dora Delarosa NP: [phone] Diabetes 3: See Treatment Team Provider (or call Dora Delarosa, above) Diabetes After-Hours & Weekends: Diabetes Fellow * Plan of Care - Elsie Gonzalez RN - 06/24/2022 12:23 PM CDT Per Medical Chart/Rounds/IDR: meets ADD: 06/27 Plan/referrals made/in place: awaiting pt/ot recs Support following discharge: family Transportation: family F/U Appointments: unable to reach PCP at this time Plan for weekend discharge: For weekend assistance, please check the treatment team in [facility] for the assigned keycase assembler or contact the weekend Case Management phone * Consults, Subsequent - Will Villavicencio MD - 06/24/2022 11:36 AM CDT Cardiology Progress Note - General Cardiology Patient Name: Adelia Garvin Jr. : 1970 Date of Service: 06/24/22 Requesting Attending: Carey East* Reason for Consult: Other: NSTEMI Interval Events: - NAEON Current Medications: aspirin, 81 mg, oral, Daily atorvastatin, 80 mg, oral, Daily calcitRIOL, 0.25 mcg, oral, Daily [Held by Provider] calcium acetate(phosphat bind), 667 mg, oral, QID clopidogreL, 75 mg, oral, Daily ezetimibe, 10 mg, oral, Daily gentamicin, , topical, Daily heparin, 5,000 Units, subcutaneous, Q8H ASHLEY insulin glargine, 33 Units, subcutaneous, QAM insulin lispro, 0-10 Units, subcutaneous, TID with meals insulin lispro, 0-5 Units, subcutaneous, Nightly insulin lispro, 0-5 Units, subcutaneous, Daily insulin lispro, 8 Units, subcutaneous, TID with meals insulin NPH, 30 Units, subcutaneous, Nightly metoprolol tartrate, 50 mg, oral, BID pantoprazole, 40 mg, intravenous, BID polyvinyl alcohol-povidone, 1 drop, each eye, QID Objective Vital Signs: 24hr Min/Max: Temp Min: 36.7 ??C (98.1 ??F) Max: 37.9 ??C (100.2 ??F) Pulse Min: 72 Max: 105 BP Min: 86/64 Max: 119/59 Resp Min: 16 Max: 18 SpO2 Min: 95 % Max: 100 % Most Recent: Vitals: 06/24/22 0808 BP: 97/56 Pulse: 75 Resp: 18 Temp: 37 ??C (98.6 ??F) SpO2: 95% Intake/Output: Intake/Output Summary (Last 24 hours) at 06/24/2022 1136 Last data filed at 06/24/2022 0536 Gross per 24 hour Intake 93084 ml Output 08322 ml Net -347 ml Physical Exam: General: well appearing in NAD, pleasant, conversational without dyspnea, uremic hall scattered throughout on skin HEENT: NCAT, MMM, anicteric Neck: supple, no JVD appreciated Lungs: non-labored breathing, CTAB Heart: RRR, normal S1/S2, no M/R/G's Abdomen: +BS, soft, NT, ND Groin: left femoral access site c/d/I, no echhmyoses, no hematoma palpated Extremities: WWP, no LE edema, 2+ DP/PT/Radial pulses bilaterally Neurologic: A&Ox3, no focal deficits appreciated Psych: Normal mood and affect Lab/Radiology/Diagnostic Review: Recent Labs Lab Units 06/24/22 0410 06/23/22 1434 06/23/22 1401 06/23/22 0421 06/22/22 1521 HEMOGLOBIN g/dL 7.9* 8.2* 4.6* 8.1* 7.8* HEMATOCRIT % 24.0* 25.2* 14.2* 25.8* 24.1* WBC K/cumm 4.3 5.4 5.9 4.4 4.9 PLATELETS K/cumm 206 215 253 206 183 Recent Labs Lab Units 06/24/22 0410 06/23/22 1435 06/23/22 1401 06/23/22 0421 06/22/22 1521 06/21/22 2155 06/21/22 0838 SODIUM mmol/L 134* < > 136 -- 138 136 139 POTASSIUM PLASMA mmol/L 3.9 < > 3.4 -- 3.7 4.0 4.0 CHLORIDE mmol/L 94* < > 96* -- 99 98 101 CO2 mmol/L 25 < > 25 -- 27 24 27 ANIONGAP mmol/L 15 < > 15 -- 12 14 11 BUN SERUM mg/dL 46* < > 45* -- 42* 41* 36* CREATININE mg/dL 8.83* < > 8.21* -- 7.25* 6.03* 5.26* CALCIUM mg/dL 8.5 < > 8.3* -- 8.6 8.4* 8.4* MAGNESIUM mg/dL -- -- 2.8* 2.9* 2.9* 2.8* 2.8* < > = values in this interval not displayed. Recent Labs Lab Units 06/22/22 1521 ALBUMIN g/dL 2.9* ALK PHOS Units/L 112 AST Units/L 41 ALT Units/L 31 BILIRUBIN TOTAL mg/dL 0.4 Recent Labs Lab Units 06/19/222053 APTT sec 37 Recent Labs Lab Units 06/19/22205306/19/22 0909 06/18/22 1014 PH ART 7.45 7.41 7.36 PCO2 ART mmHg 32* 33* 37 PO2 ART mmHg 75* 87 74* BASE EXC ART mmol/L -1 -4 -4 Cultures: Lab Results Component Value Date MICROBIOLOGY Final Report: No growth 06/17/2022 MICROBIOLOGY Final Report: No growth 06/17/2022 MICROBIOLOGY Final Report: Negative 06/15/2022 MICROBIOLOGY Final Report: No growth 06/15/2022 MICROBIOLOGY Final Report: No growth 06/15/2022 LHC (06/07/22): 90% ostial LCx 98% mid LCx 70% prox OM1 Overall impression: 1. High-risk but successful PCI of left dominant circumflex and OM bifurcation with Synergy drug-eluting stents placed as above. 2. Cardiogenic shock and pulmonary edema resulting from PCI requiring pressor support, intubation and subsequent placement of Impella CP. 3. End-stage renal disease on peritoneal dialysis. 4. Morbid obesity/COPD. 5. Hypoxemic respiratory failure, recurrent. Assessment/Plan Mr Adelia Garvin Jr. is a 51 year-old gentleman with history of HTN, HLD, CAD, ICM/HFrecEF (LVEF65% on TTE 06/12/22), paroxysmal AF, T1DM and ESRD on PD who was transferred to [facility] for an impella-supported complex PCI on 06/07/22 with MARIELLA to ostial LCx and OM1 bifurcation. General Cardiology was consulted for chest pain. # CAD s/p complex Impella supported PCI with MARIELLA to ostial LCx and OM1 bifurcation (06/07/22) and multiple prior OSH PCI # ICM/HFrecEF (LVEF 65% on TTE 06/12/22) # Paroxysmal AF (CHADS-VASc: 4; HF, HTN, Vascular dz, DM; HAS-BLED: 3, high risk for bleeding) not currently on anticoagulation # T1DM (HgbA1c 7.8% on 06/04/22) # ESRD on PD CAD: - continue DAPT with ASA 81mg daily and Plavix 75mg daily - continue Atorvastatin 80mg qhs - continue Zetia 10mg daily - can restart home Imdur 30mg daily and Ranolazine 500mg BID - SLN prn Recommend uptitrating Metoprolol tartrate to target resting HR's 60's-70's as tolerated by BP and symptoms. Thank you for this consult. We will sign-off at this time. Please do not hesitate to contact us if questions arise. Will Villavicencio MD Hat Blocking Operator 11:36 AM 06/24/22 Cosigned by Musa Fernando MD at 06/25/2022 9:04 PM CDT Associated attestation - Musa Fernando MD - 06/25/2022 9:04 PM CDT 06/24/2022 I have personally seen and examined this pt with resident/Fellow/CHIEF AIRLINE RADIO OPERATOR . I have reviewed History/Physical exam and plan for management. I agree with it . Musa Fernando M.D., F.A.C.C. education program associate [employer] [facility]. [place] This note contains information and findings from prior encounters which remain the same for today'sencounter. I have reviewed and made updates where applicable. This note was written using a voice recognition system hardware device. Please note there may be variance in spelling, grammar, and syntax because of the voice recognition system hardware. Therefor, not every sentence has been reviewed in its entirety. If there are any concerns about verbage above please contact me at [phone]. . * Plan of Care - Jefferson White RRT - 06/24/2022 4:09 AM CDT NPPV Situation: The patient was ordered on NPPV for Nocturnal Use due to a history of Obstructive Sleep Apnea (BEN). Patient was placed on their hospital provided NPPV machine. Settings: NPPV Mode: CPAP PEEP/CPAP/EPAP Set (cmH2O): 11 cm H20 FiO2 (%): 40 %. Tolerance: The patient tolerated the NPPV without issue. Plan: Proceed as tolerated and continue to monitor the patient. * Consults, Subsequent - James Horvath MD - 06/23/2022 8:16 PM CDT NEPHROLOGY CONSULT SUBSEQUENT VISIT INTERVAL HISTORY: NAEO. Patient transferred out of the ICU last ngiht. Patient had CCPD yesterday and tolerated it well. Much more alert this morning, reports he feels well. 2L UF on CCPD. OBJECTIVE Vitals: 06/23/22 1315 06/23/22 1335 06/23/22 1400 06/23/22 1415 BP: 104/64 96/68 110/72 109/66 BP Location: Right arm Right arm Patient Position: Lying;HOB 30 degrees Lying;HOB 30 degrees Pulse: 105 100 98 Resp: Temp: TempSrc: SpO2: 100% Weight: Height: PHYSICAL EXAM: General: Alert and awake Eyes: PERRL. Sclera nonicteric. ENT: MMM. Trialysis line in L neck. Cardiac: Regular rate and rhythm. Pulm: Soft crackles throughout lung charles GI/Abd: Soft, obese, nondistended, BS positive Lymphatic: No significant LAD Extremities: No peripheral cyanosis. Warm extremities 1+ pitting edema. Skin: No rash or bruises Date 06/22/221899 - 06/23/22 0606/23/22 07 - 06/24/22 0659 Shift 9756-0187 24 Hour Total 0044-5417 9964-6039 24 Hour Total INTAKE Other 95966 10742 IV Piggyback 250 250 Shift Total(mL/kg) 27866(101.2) 23875(101.2) 250(2.1) 250(2.1) OUTPUT Urine(mL/kg/hr) 450 450 Other 43277 29783 Shift Total(mL/kg) 49550(122.6) 82796(122.6) NET -2573 -2579 250 250 Weight (kg) 120.5 120.5 119.9 119.9 119.9 LABORATORY DATA: Recent Labs Lab Units 06/23/22 1434 06/23/22 1401 06/23/22 0421 WBC K/cumm 5.4 5.9 4.4 HEMOGLOBIN g/dL 8.2* 4.6* 8.1* PLATELETS K/cumm 215 253 206 Recent Labs Lab Units 06/23/22 1435 06/23/22 1401 06/23/22 0421 06/22/228 06/22/22 1521 06/21/225 06/21/22 0838 06/19/22 0909 06/18/22 2250 06/18/22 0852 SODIUM mmol/L 137 136 -- -- 138 136 139 < > 140 143 POTASSIUM PLASMA mmol/L 3.6 3.4 -- -- 3.7 4.0 4.0 < > 4.3 4.0 CHLORIDE mmol/L 96* 96* -- -- 99 98 101 < > 103 104 CO2 mmol/L 25 25 -- -- 27 24 27 < > 22 23 BUN SERUM mg/dL 45* 45* -- -- 42* 41* 36* < > 35* 40* CREATININE mg/dL 8.33* 8.21* -- -- 7.25* 6.03* 5.26* < > 5.01* 6.24* ALBUMIN g/dL -- -- -- -- 2.9* 2.7* 2.7* < > 2.8* 3.3* CALCIUM mg/dL 8.3* 8.3* -- -- 8.6 8.4* 8.4* < > 8.7 9.5 MAGNESIUM mg/dL -- 2.8* 2.9* -- 2.9* 2.8* 2.8* < > 3.1* 2.9* PHOSPHORUS PLASMA mg/dL -- 5.2* -- 5.8* -- 4.8* -- < > 5.2* -- VANCOMYCIN RM mcg/mL -- -- -- -- -- -- -- -- 38.4 51.8 < > = values in this interval not displayed. Lab Results Component Value Date CALCIUM 8.3 (L) 06/23/2022 CAION 4.62 06/07/2022 PHOS 5.2 (H) 06/23/2022 Lab Results Component Value Date IRON 50 06/07/2022 TIBC 130 (L) 06/07/2022 TRANSFERSAT 38 06/07/2022 FERRITIN 2,062 (H) 06/07/2022 CURRENT MEDICATIONS: aspirin, 81 mg, oral, Daily atorvastatin, 80 mg, oral, Daily calcitRIOL, 0.25 mcg, oral, Daily [Held by Provider] calcium acetate(phosphat bind), 667 mg, oral, QID clopidogreL, 75 mg, oral, Daily ezetimibe, 10 mg, oral, Daily gentamicin, , topical, Daily heparin, 5,000 Units, subcutaneous, Q8H ASHLEY [START ON 06/24/2022] insulin glargine, 28 Units, subcutaneous, QAM insulin lispro, 0-10 Units, subcutaneous, TID with meals insulin lispro, 0-5 Units, subcutaneous, Nightly insulin lispro, 0-5 Units, subcutaneous, Daily insulin lispro, 6 Units, subcutaneous, TID with meals insulin NPH, 30 Units, subcutaneous, Nightly metoprolol tartrate, 50 mg, oral, BID pantoprazole, 40 mg, intravenous, BID polyvinyl alcohol-povidone, 1 drop, each eye, QID peritoneal fluid with or without additives for CCPD, peritoneal fluid with or without additives for CCPD, peritoneal fluid with or without additives for CCPD, peritoneal fluid with or without additives for CCPD, ASSESSMENT AND RECOMMENDATIONS ESRD on PD - Schedule: nightly - last OP HD: 06/03/2022 - Access: Lt LQ PD catheter Patient was on CVVHDF from 06/07-06/15, when attempt was made to switch back to CCPD given line issues. Was on continuous PD 06/15-06/18. CRRT again from 06/18- 06/19, SLED 06/20. CCPD resumed 06/21. -Continue with CCPD tonight with his home prescription. Had excellent UF yesterday with 2.0L. -Daily dressing changes for PD catheter, with gentamycin -Daily BM to prevent catheter malpositioning Patient seen and discussed with my attending, Dr. Driver 06/23/22 James Horvath MD Nephrology Fellow PGY-4 Consult 1 Service Contact (phone): [phone] After hours and weekends: please page [phone] Cosigned by Miriam Driver MD at 06/23/2022 8:48 PM CDT Associated attestation - Miriam Driver MD - 06/23/2022 8:48 PM CDT I have seen and examined the patient on 06/23/22. I agree with the findings and plan of care as documented in the nephrology fellow's note. Miriam Driver MD Biology Department Chair Division of Nephrology * Assessment & Plan Note - Carey East MD - 06/23/2022 4:54 PM CDTAssociated Problem(s): Cardiogenic shock (HCC) Secondary to NSTEMI, s/p Impella since removed on 06/10. Resolved. * Assessment & Plan Note - Frank Bowers MD - 06/23/2022 4:54 PM CDT Associated Problem(s): NSTEMI (non-ST elevated myocardial infarction) (CMS/HCC) (HCC) With recurrent chest pain post-cath. He has [...] dc tomorrow as pt has been accepted OR ART DIRECTOR OR ART DIRECTOR * Assessment & Plan Note - Frank Bowers MD - 06/23/2022 4:52 PM CDT Associated Problem(s): Atrial fibrillation (CMS/HCC) ([facility]) Converted to NSR overnight on 06/24. CHADsVASc of 4 not on anticoagulation prior to admission. - cardiology consulted - recommended ongoing rate control - holding off on a/c with high risk for bleeding while on DAPT - reduced metop to 25mg BID in the setting of hypotension, HR 70s NSR OR ART DIRECTOR * Assessment & Plan Note - Frank Bowers MD - 06/23/2022 4:47 PM CDT Associated Problem(s): Acute on chronic HFrEF (heart failure with reduced ejection fraction) ([facility]) C/b cardiogenic shock requiring impella in the setting of cath and AHRF 2/2 pulmonary edema, now resolved. TTE demonstrating recovered EF 65% with grade I diastolic dysfunction. - metop as above - continue low dose losartan 12.5mg daily, ok per nephro. Tolerating well - volume management per PD OR ART DIRECTOR * Assessment & Plan Note - Frank Bowers MD - 06/23/2022 4:47 PM CDT Associated Problem(s): ESRD (end stage renal disease) (CMS/HCC) ([facility]) - Renal consulted, s/p CRRT in the ICU now back on PD. Tolerated well and nephrology following - Trialysis catheter removed - Continue vitamins for renal bone mineral disease. OR ART DIRECTOR * Assessment & Plan Note - Carey East MD - 06/23/2022 4:47 PM CDTAssociated Problem(s): Anemia Stable, likely 2/2 anemia from ESRD, no evidence of bleeding. Underwent CT c/a/p without internal hematoma. - Monitor and trend Hb. * Assessment & Plan Note - Carey East MD - 06/23/2022 4:46 PM CDTAssociated Problem(s): Acute hypoxemic respiratory failure (HCC) Secondary to ACS and flash pulmonary edema, since resolved and extubated on 06/19. Patient passed barium swallow on 06/21. * Assessment & Plan Note - Frank Bowers MD - 06/23/2022 4:43 PM CDT Associated Problem(s): Type 1 diabetes mellitus (HCC) A1c well controlled on admission. He uses [...] resistant SSI increase NPH 45u before PD OR ART DIRECTOR * Consults, Subsequent - Dora eDlarosa NP - 06/23/2022 1:48 PM CDT Endocrinology & Diabetes Progress Note Patient: Adelia Garvin Jr., 51 y.o. male (: 1970) Room: [place] [address] ( ) LOS: 19 Adelia Garvin Jr. is a 51 y.o. male with PMH significant for T1DM on insulin pump, atrial fibrillation, HTN, HLD, CAD s/p PCI, ESRD on PD, and hyperparathyroidism who presented to the hospital with weakness, N/V, diarrhea and chest pain. Hospital course complicated by respiratory failure requiring intubation, cardiogenic shock and agitation. The Endocrinology/Diabetes Service is providing diabetes/insulin pump management and discharge planning recommendations during this hospitalization. Interval Events & Subjective There were no acute events overnight. Mr. Garvin reports his appetite is so- so . Denies nausea/vomiting/diarrhea, chest pain, shortness of breath, fever or chills today. Peritoneal dialysis continues during night. Diet: Adult Diet Restricted; 2 GM Sodium; Consistent Carbohydrate Over the previous 24 hours, blood glucose not at target with range of 88-364 mg/dl with 84 units TDD insulin coverage. Peritoneal dialysis likely contributed to severe hyperglycemia this morning as blood glucose trending up with start of PD. Target inpatient blood glucose is 100-180 mg/dl. AM bloodglucose was 320 mg/dl; treated with lispro 18 units subcutaneously. Pre-lunch blood glucose was 163mg/dl. At 1320, blood glucose was 88 mg/dl; treated with juice and hospitalist at bedside due to chest pain. Recent Labs Lab Units 06/23/22 1320 06/23/22 1148 06/23/22 0728 06/23/22 0138 06/22/22 2114 06/22/22 1737 06/22/22 1521 06/22/22 1138 06/22/22 1046 06/22/22 0907 GLUCOSE mg/dL -- -- -- -- -- -- 103 -- -- -- POC GLUCOSE MONITOR mg/dL 88 163 320* 244* 176 88 -- 162 197 313* Interval Review of Systems Twelve point ROS reviewed and negative except as noted in HPI. All other systems negative. Vitals & Exam Temp: [36.7 ??C (98.1 ??F)-36.9 ??C (98.4 ??F)] 36.9 ??C (98.4 ??F) Pulse: [72-105] 105 BP: (86-126)/(50-64) 104/64 Resp: [18] 18 SpO2: [97 %-100 %] 100 % FiO2 (%): [40 %] 40 % No intake/output data recorded. Physical Exam Gen : 51 year old male resting quietly in bed in no acute distress, alert, appropriate, cooperative, appears stated age, well-developed, well-nourished HENT : normocephalic, atraumatic, moist mucus membranes Eyes : conjunctiva clear, anicteric, no proptosis/exophthalmos/lid lag Pulm : non-labored, supplemental oxygen Extr : atraumatic, no cyanosis/clubbing/edema Skin : turgor normal, no rashes/wounds/lesions Neuro : alert, speech fluent, comprehension intact, moving all extremities, IV access LUE Psych : cooperative, appropriate affect & mood, good insight & judgment Data Medications, labs, imaging, and diagnostics independently reviewed in Epic and commented on below. Lab Results Component Value Date TSH 0.80 03/21/2017 Lab Results Component Value Date CHOL 149 06/04/2022 TRIG 183 (H) 06/21/2022 HDL 34 (L) 06/04/2022 LDLCALC 82 06/04/2022 Lab Results Component Value Date 25HYDROVITD 22.7 (L) 03/22/2017 Lab Results Component Value Date HGBA1C 7.8 (H) 06/04/2022 Assessment & Plan 51 y.o. male with PMH significant for T1DM on insulin pump, atrial fibrillation, HTN, HLD, CAD s/p PCI, ESRD on PD, and hyperparathyroidism who presented to the hospital with weakness, N/V, diarrhea and chest pain. Hospital course complicated by respiratory failure requiring intubation, cardiogenicshock and agitation. 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, with prison use of insulin, complicated by ESRD on PD, CAD s/p PCI, CHF - HbA1c 7.4% - Uses Omnipod and Dexcom G6 at home, not currently on this- doesn't have the supplies -On significantly higher basal rates on pump at night due to peritoneal dialysis -home settings: Basal rate 0330 >>1.7 0800 >> 0.8 2000 >> 5.8 ICR1:6.5 ISF1:25 [id number] TIA 4 Over the previous 24 hours, blood glucose not at target with range of 88-364 mg/dl with 84 units TDD insulin coverage. Peritoneal dialysis likely contributed to severe hyperglycemia this morning as blood glucose trending up with start of PD. Target inpatient blood glucose is 100-180 mg/dl. AM bloodglucose was 320 mg/dl; treated with lispro 18 units subcutaneously. Pre-lunch blood glucose was 163mg/dl. At 1320, blood glucose was 88 mg/dl; treated with juice and hospitalist at bedside due to chest pain. Inpatient glycemic management complicated by variable oral intake, stress, impaired renal function and acute illness. Glycemia trending up overnight with resumption of peritoneal dialysis and down post-prandially; recommend decreasing basal and bolus insulin with meals and increasing the NPH dose with peritoneal dialysis today. We will continue to intensely monitor blood glucose and titrate insulin as needed to optimize glycemic control to avoid hypoglycemic/hyperglycemic events. Recommendations for diabetes management were discussed with the primary team. Recommendations: - decrease Lantus from 33 units to 30 units qAM - decrease Humalog from 10 units to 8 units with meals - Continue resistant correction scale TID/HS/0200 - Increase NPH from 20 units to 30 units with start of peritoneal dialysis session - POC glucoses TID/HS/0200 Discharge recommendations: - TBD # ESRD on PD - Serum Cr = 3.87=>5.26=>6.03=>7.25 today - CKD and ESRD are independent risk factors for hypoglycemia ## Discharge Planning - Follow-up with home green house manager -- Dora Delarosa NP Endocrinology, Metabolism, & Lipid Research Contact Info: New Consults: [phone]) General Endocrine (Non-Diabetes): [phone] (Check 'Treatment Team' assignment for Diabetes 1 vs 2 vs 3) Diabetes 1: Diabetes Fellow: [phone] Diabetes 2: Dora Delarosa NP: [phone] Diabetes 3: See Treatment Team Provider (or call Dora Delarosa, above) Diabetes After-Hours & Weekends: Diabetes Fellow * Plan of Care - Maeve Read RN - 06/23/2022 2:12 AM CDT Problem: Health Behavior: Goal: Understanding of discharge needs will improve Outcome: Progressing Problem: Lack of Knowledge: Goal: Ability to state ways to decrease the risk of falls will improve Outcome: Progressing Problem: Safety: Goal: Will remain free from falls Outcome: Progressing Goal: Will remain free from injury from falls Outcome: Progressing Goal: Will remain free from falls and injury in home environment Outcome: Progressing Problem: Lack of Knowledge: Goal: Knowledge of disease or condition and prescribed therapeutic regimen will improve Outcome: Progressing Problem: Coping: Goal: Level of anxiety will decrease Outcome: Progressing Problem: Sensory: Goal: Pain level will decrease Outcome: Progressing Problem: Lack of Knowledge: Goal: Ability to describe self-care measures that may prevent or decrease complications will improve Outcome: Progressing Goal: Knowledge of disease or condition will improve Outcome: Progressing Goal: Knowledge of the prescribed therapeutic regimen will improve Outcome: Progressing Goal: Knowledge of prevention and discharge planning will improve Outcome: Progressing Problem: Coping: Goal: Ability to adjust to condition or change in health will improve Outcome: Progressing Problem: Fluid Volume: Goal: Ability to maintain a balanced intake and output will improve Outcome: Progressing Problem: Health Behavior: Goal: Ability to identify and alter actions that are detrimental to health will improve Outcome: Progressing Goal: Ability to identify and utilize available resources and services will improve Outcome: Progressing Goal: Ability to manage health-related needs will improve Outcome: Progressing Problem: Nutritional: Goal: Maintenance of adequate nutrition will improve Outcome: Progressing Goal: Progress toward achieving an optimal weight will improve Outcome: Progressing Problem: Physical Regulation: Goal: Complications related to the disease process, condition or treatment will be avoided or minimized Outcome: Progressing Goal: Diagnostic test results will improve Outcome: Progressing Problem: Skin Integrity: Goal: Risk for impaired skin integrity will decrease Outcome: Progressing Problem: Lack of Knowledge: Goal: Ability to develop a pain control plan will improve Outcome: Progressing Goal: Ability to identify pain intensity on a pain scale and rate it consistently will improve Outcome: Progressing Goal: Ability to notify healthcare provider of pain before it becomes unmanageable or unbearable will improve Outcome: Progressing Problem: Medication: Goal: Satisfaction with pain management regimen will improve Outcome: Progressing Problem: Sensory: Goal: Ability to identify factors that increase the pain will improve Outcome: Progressing Goal: Pain level will decrease Outcome: Progressing Problem: Activity: Goal: Ability to return to normal activity level will improve Outcome: Progressing Problem: Lack of Knowledge: Goal: Knowledge of the prescribed therapeutic regimen will improve Outcome: Progressing Problem: Coping: Goal: Ability to cope will improve Outcome: Progressing Problem: Health Behavior: Goal: Identification of resources available to assist in meeting health care needs will improve Outcome: Progressing Problem: Sensory: Goal: Pain level will decrease Outcome: Progressing Problem: Cardiac: Goal: Ability to maintain an adequate cardiac output will improve Outcome: Progressing Goal: Hemodynamic stability will improve Outcome: Progressing Problem: Lack of Knowledge: Goal: Ability to state signs and symptoms to report to health care provider will improve Outcome: Progressing Goal: Knowledge of the prescribed therapeutic regimen will improve Outcome: Progressing Goal: Mental status will improve Outcome: Progressing Problem: Fluid Volume: Goal: Ability to achieve and maintain adequate urine output will improve Outcome: Progressing Problem: Respiratory: Goal: Respiratory status will improve Outcome: Progressing Problem: Lack of Knowledge: Goal: Verbalization of understanding the information provided will improve Outcome: Progressing Problem: Lack of Knowledge: Goal: Ability to develop a pain control plan will improve Outcome: Progressing Goal: Ability to identify pain intensity on a pain scale and rate it consistently will improve Outcome: Progressing Goal: Ability to notify healthcare provider of pain before it becomes unmanageable or unbearable will improve Outcome: Progressing Problem: Medication: Goal: Satisfaction with pain management regimen will improve Outcome: Progressing Problem: Sensory: Goal: Ability to identify factors that increase the pain will improve Outcome: Progressing Goal: Pain level will decrease Outcome: Progressing Goals: Clinical Goals for the Shift: PD Summary: * Consults, Subsequent - James Horvath MD - 06/22/2022 8:29 PM CDT NEPHROLOGY CONSULT SUBSEQUENT VISIT INTERVAL HISTORY: NAEO. Patient had CCPD yesterday and tolerated it well. Much more alert this morning, reports he feels well. 1.7L UF on CCPD. OBJECTIVE Vitals: 06/22/22 1600 06/22/22 1700 06/22/22 1750 06/22/228 BP: 115/61 106/62 119/47 99/66 BP Location: Right arm Right arm Right arm Right arm Patient Position: Lying Lying Lying;HOB 30 degrees HOB 30 degrees Pulse: 112 114 109 79 Resp: Temp: 37 ??C (98.6 ??F) 36.7 ??C (98.1 ??F) TempSrc: Oral Oral SpO2: 97% 97% 95% 96% Weight: Height: PHYSICAL EXAM: General: Alert and awake Eyes: PERRL. Sclera nonicteric. ENT: MMM. Trialysis line in L neck. Cardiac: Regular rate and rhythm. Pulm: Soft crackles throughout lung charles GI/Abd: Soft, obese, nondistended, BS positive Lymphatic: No significant LAD Extremities: No peripheral cyanosis. Warm extremities 1+ pitting edema. Skin: No rash or bruises Date 06/21/221899 - 06/22/22 0659 06/22/22 07 - 06/23/22 0659 Shift 2039-0241 24 Hour Total 2721-1298 5875-9617 24 Hour Total INTAKE I.V.(mL/kg) 133.2(1.1) Other 32159 36521 NG/GT 100 Shift Total(mL/kg) 88994(93.8) 07168.2(95.7) OUTPUT Urine(mL/kg/hr) 450 450 Emesis/NG output 0 Other 99576 52544 Shift Total(mL/kg) 75889(108.4) 84479(108.4) 450(3.7) 450(3.7) NET -1759 -1525.8 -450 -450 Weight (kg) 120.5 120.5 120.5 120.5 120.5 LABORATORY DATA: Recent Labs Lab Units 06/22/22 1521 06/21/225 06/21/22 1723 WBC K/cumm 4.9 5.9 6.5 HEMOGLOBIN g/dL 7.8* 7.5* 7.5* PLATELETS K/cumm 183 174 177 Recent Labs Lab Units 06/22/22 1521 06/21/22 2155 06/21/22 0838 06/20/22 1946 06/19/22 0909 06/18/22 2250 06/18/22 0852 SODIUM mmol/L 138 136 139 137 < > 140 143 POTASSIUM PLASMA mmol/L 3.7 4.0 4.0 4.9 < > 4.3 4.0 CHLORIDE mmol/L 99 98 101 102 < > 103 104 CO2 mmol/L 27 24 27 23 < > 22 23 BUN SERUM mg/dL 42* 41* 36* 26* < > 35* 40* CREATININE mg/dL 7.25* 6.03* 5.26* 3.87* < > 5.01* 6.24* ALBUMIN g/dL 2.9* 2.7* 2.7* 2.7* < > 2.8* 3.3* CALCIUM mg/dL 8.6 8.4* 8.4* 8.5 < > 8.7 9.5 MAGNESIUM mg/dL 2.9* 2.8* 2.8* 2.6* < > 3.1* 2.9* PHOSPHORUS PLASMA mg/dL -- 4.8* -- 2.9 -- 5.2* -- VANCOMYCIN RM mcg/mL -- -- -- -- -- 38.4 51.8 < > = values in this interval not displayed. Lab Results Component Value Date CALCIUM 8.6 06/22/2022 CAION 4.62 06/07/2022 PHOS 4.8 (H) 06/21/2022 Lab Results Component Value Date IRON 50 06/07/2022 TIBC 130 (L) 06/07/2022 TRANSFERSAT 38 06/07/2022 FERRITIN 2,062 (H) 06/07/2022 CURRENT MEDICATIONS: [START ON 06/23/2022] aspirin, 81 mg, oral, Daily [START ON 06/23/2022] atorvastatin, 80 mg, oral, Daily calcitRIOL, 0.25 mcg, oral, Daily [Held by Provider] calcium acetate(phosphat bind), 667 mg, oral, QID [START ON 06/23/2022] clopidogreL, 75 mg, oral, Daily [START ON 06/23/2022] ezetimibe, 10 mg, oral, Daily gentamicin, , topical, Daily heparin, 5,000 Units, subcutaneous, Q8H ASHLEY insulin glargine, 33 Units, subcutaneous, QAM insulin lispro, 0-10 Units, subcutaneous, TID with meals insulin lispro, 0-5 Units, subcutaneous, Nightly insulin lispro, 0-5 Units, subcutaneous, Daily insulin lispro, 10 Units, subcutaneous, TID with meals insulin NPH, 20 Units, subcutaneous, Nightly metoprolol tartrate, 25 mg, oral, Q6H pantoprazole, 40 mg, intravenous, BID polyvinyl alcohol-povidone, 1 drop, each eye, QID peritoneal fluid with or without additives for CCPD, peritoneal fluid with or without additives for CCPD, peritoneal fluid with or without additives for CCPD, peritoneal fluid with or without additives for CCPD, ASSESSMENT AND RECOMMENDATIONS ESRD on PD - Schedule: nightly - last OP HD: 06/03/2022 - Access: Lt LQ PD catheter Patient was on CVVHDF from 06/07-06/15, when attempt was made to switch back to CCPD given line issues. Was on continuous PD 06/15-06/18. CRRT again from 06/18- 06/19, SLED 06/20. CCPD resumed 06/21. -Continue with CCPD tonight with his home prescription. Had excellent UF yesterday with 1.7L. Continue to monitor fluid status for further hemodialysis needs while in the ICU. -Daily dressing changes for PD catheter, with gentamycin -Daily BM to prevent catheter malpositioning Patient seen and discussed with my attending, Dr. Driver 06/22/22 James Horvath MD Nephrology Fellow PGY-4 Consult 1 Service Contact (phone): [phone] After hours and weekends: please page [phone] Cosigned by Miriam Driver MD at 06/23/2022 11:57 AM CDT Associated attestation - Miriam Driver MD - 06/23/2022 11:57 AM CDT I have seen and examined the patient on 06/22/22. I agree with the findings and plan of care as documented in the nephrology fellow's note. Miriam Driver MD Biology Department Chair Division of Nephrology * Assessment & Plan Note - Luiz Lewis DO - 06/22/2022 8:21 PM CDT Associated Problem(s): Cardiogenic shock (HCC) -Secondary to NSTEMI, s/p Impella since removed on 06/10. * Assessment & Plan Note - Luiz Lewis DO - 06/22/2022 8:20 PM CDT Associated Problem(s): NSTEMI (non-ST elevated myocardial infarction) (CMS/HCC) (HCC) -Patient with multiple risk factors, s/p complex PCI to LCx and OM bifurcation with MARIELLA. -Continue DAPT with aspirin, Plavix and atorvastatin. * Assessment & Plan Note - Luiz Lewis DO - 06/22/2022 8:18 PM CDT Associated Problem(s): Atrial fibrillation (CMS/HCC) (HCC) -Currently rated controlled with metoprolol, CHADsVASc of 4 not on anticoagulation prior to admission. -Follow cardiology for initiation of AC. * Assessment & Plan Note - Luiz Lewis DO - 06/22/2022 8:16 PM CDT Associated Problem(s): Acute on chronic HFrEF (heart failure with reduced ejection fraction) (HCC) -With acute exacerbation complicated by pulmonary edema since resolved. -Repeat TTE following Impella removal showed recovered EF of 65% with grade I diastolic dysfunction. -Continue metoprolol tartrate, start GDMT per cardiology. * Assessment & Plan Note - Luiz Lewis DO - 06/22/2022 8:15 PM CDT Associated Problem(s): ESRD (end stage renal disease) (CMS/HCC) (HCC) -Renal consulted, s/p CRRT in the ICU now back on PD. -Trialysis catheter still in place. -Continue vitamins for renal bone mineral disease. * Assessment & Plan Note - Luiz Lewis DO - 06/22/2022 8:12 PM CDT Associated Problem(s): Anemia -Likely due to anemia from ESRD, continue trending Hb, no evidence of bleeding. Underwent CT c/a/p without internal hematoma. -Monitor and trend Hb. * Assessment & Plan Note - Luiz Lewis DO - 06/22/2022 8:06 PM CDT Associated Problem(s): Acute hypoxemic respiratory failure (HCC) -Secondary to ACS and flash pulmonary edema, since resolved and extubated on 06/19. Patient passed barium swallow on 06/21. * Assessment & Plan Note - Luiz Lewis DO - 06/22/2022 8:04 PM CDT Associated Problem(s): Type 1 diabetes mellitus (HCC) -Patient on insulin pump at home. -Endocrine consulted, patient currently on basal bolus regimen with NPH for hyperglycemic episodes. -Continue insulin regimen per endocrine. * Significant Event - Tyra De La Torre MD - 06/22/2022 7:57 PM CDT CCU TO MEDICINE HANDOFF TOOL Primary reason for CCU admission: Acute hypoxic respiratory failure s/p complex PCI with impella Brief CCU Course: Adelia Garvin Jr. is a 51 y.o. male with a history of CHF (EF 50% 2016), Afib (not on AC), HTN, CAD s/p stent 04/06 and 3 stent 12/07, T1DM (insulin pump at home), ESRD on PD, HLD, GERD, hyperparathyroidism, DDD, OA, gout, BEN on CPAP initially presented to OSH for n/v and chest pain, transferred to [facility] for LHC/PCI, who presented to CCU s/p complex PCI with impella and intubated. Now extubated, tolerating PO intake, on home PD. Arrived at [place] from OSH on 06/05. EKG showed sinus bradycardia, 1st deg AV block. Transferred toMICU overnight after ACT called for acute hypoxic respiratory failure. In the MICU was started on kaylah for cholecystitis, continued on heparin gtt, and started on nitro gtt for BP control. He was weaned to nasal cannula and underwent complex PCI 06/07, PCI revealed ostial circ lesion of 90%, large OM with 70% narrowing. During PCI, patient became hypotensive and hypoxic. He was sent to the CCU intubated with impella, SGC, and LIJ trialysis. Over course of stay, had concern for mixed cardiogenic/distributive shock inaddition to acute hypoxic respiratory failure. Veletri, norepi, ccvrt were required for support. Impella was weaned slowly and removed 06/10. Pressors and vent settings were weaned slowly, and patient was ultimately extubated 06/20. Passed MBS, now tolerating PO intake. Also consulted endocrine during stay for management of T1DM and renal for initiation of cvvrt and transition to peritoneal dialysis (PD). Was also treated with one week course of cefepime and kaylah given concern for distributive shock / cholecystitis. Active consultants: Endocrine (T1DM) New findings that warrant follow-up and pending studies: [ ] remove subclavian (trialysis) line [ ] restart anticoagulation for afib once line out (eliquis 2.5 bid) [ ] start nicolás/arb for renal protection [ ] uptitrate metoprolol as needed PERTINENT physical exam findings on day of transfer: NA Important changes to home medications: Dose changes: metoprolol at 25 q6h (vs 100 q12h) Stopped: amlodipine, clonidine, colchicine, lasix, hydralazine, imdur, Medications to consider stopping prior to discharge: [] New antipsychotic (started for ICU delirium): [] Other: Major problems/Plans: #NSTEMI s/p complex PCI #CAD S/p complex PCI to the LCx and OM, impella placed and pt was intubated and transferred to the CCU. Etiology of decompensation likely flash pulmonary edema leading to acute hypoxic respiratory distress. Impella removed and veletri weaned off 06/10/22. TTE following impella removal shows LVEF 65%, though LVSVi 25ml/m2. - dapt, atorva, ezetimibe [ ] holding heparin gtt for now; can reintroduce once subclavian line removed [ ] has IR placed SC trialysis line from 06/18 #Afib Not on anticoagulation at home. CHADsVasc 4. Home metop 100 mg BID. [ ] metoprolol 25 q6h; can uptitrate as able [ ] start anticoagulation once able; chadsvasc is 3 - tolerating rates up to the 130s #ESRD on PD #Volume overload Restarted PD on 06/21, tolerating well. - renal following, continue PD - trialysis placed 06/18 #Cholecystitis Patient with CT CAP and RUQ US c/f cholecystitis at OSH. Gen surg recommended against surgery/procedure. Repeat CT 06/11 without e/o cholecystitis. Was unable to get HIDA scan due to decompensation. [ ] can consider HIDA scan - s/p vanc (06/10-06/19), kaylah (06/05-06/19) #T1DM #DKA - resolved Pt has T1DM; has insulin pump at home. - endocrine following, recs appreciated - glargine 33U, humalog 10u post-meal, NPH 20u pre-PD [ ] continue to adjust regimen as patient transitions to PO and PD Rehab/Ancillary Consults: [] BI (trauma patient with LOC) [] Chemical dependency [] PT [] OT [] Speech [] PM&R [] SMART (stroke patient) [] Wound care Anticoagulation therapy: [x] VTE Prophylaxis [x] Heparin [] Lovenox [] SCDs [] IVC Filter [] Other: [] None - Reason: [] Therapeutic Anticoagulation Indication: AFIB [] Heparin [] Lovenox [] Other: Any previous issues with tolerating anticoagulants? [] Yes [x] No Describe: Venous duplex performed? [] Yes ---> Most recent findings: [x] No Current antimicrobial therapy: Note - Planned duration may be a number of days or a criterion such as while drain in place or until blood cultures negative [x] N/A - No current antimicrobial therapy Lines/drains/airways present Peripheral IV 06/21/22 20 G Anterior;Left;Proximal Forearm (Active) Number of days: 1 Hemodialysis Cath Double (Active) Number of days: 4 To-do list prior to transfer: Make sure the following monitors or precautions are ordered if indicated: Telemetry [x] Yes [] No Continuous pulse oximetry [x] Yes [] No BEN precautions [x] Yes [] No Difficult airway [] Yes [x] No Trach orders/signage [] Yes [x] No Size/Type: Date placed: Responsible service: Glycemic control plan [x] Long acting insulin [x] SSI --> change from scheduled to AC/HS blood glucose checks [] None ----> d/c ICU insulin and blood glucose checks Central line necessary? [] Yes [] No [x] N/A Nguyen catheter necessary? [] Yes [] No [x] N/A [x] Sign-out was called to Elsie of the [facility] service. QUESTIONS? Call [phone] * Subjective & Objective - Luiz Lewis DO - 06/22/2022 7:50 PM CDT Transfer Note Division of Hospital Medicine I have seen and examined the patient on 06/22/2022. Subjective: Hospital course: Adelia Garvin is 51 y.o. male with history of DMI on insulin pump c/b ESRD on PD and CAD s/pPCI, HFrEF and Afib not on AC admitted on 06/04/2022 from OSH for complex PCI. Patient initially presented with chest pain and nausea, workup showed Trop peak of 1.09, LHC on 06/03 at OSH showed 90%+ostial LCx and OM lesion and accepted by cardiology for complex PCI. Patient underwent PCI on 06/07with successful placement of MARIELLA to LCx and OM bifurcation, procedure was complicated by cardiogenic shock requiring Impella and respiratory failure requiring intubation. Temp Trialysis placed and patient was placed on CRRT, patient received supportive care and weaned on Impella on 06/10 and extubated on 06/19 and transferred to the floor on 06/22. On interview patient reports resolution of chest pain, reports no complaints. Objective: Vitals: 24hr Min/Max: Temp Min: 36.7 ??C (98.1 ??F) Max: 37 ??C (98.6 ??F) Pulse Min: 79 Max: 114 BP Min: 99/66 Max: 145/57 Resp Min: 18 Max: 26 SpO2 Min: 91 % Max: 100 % Most Recent Vitals: Vitals: 06/22/22 1928 BP: 99/66 Pulse: 79 Resp: 20 Temp: 36.7 ??C (98.1 ??F) SpO2: 96% Intake/Output Summary (Last 24 hours) at 06/22/20221950 Last data filed at 06/22/20221944 Gross per 24 hour Intake 79020 ml Output 37959 ml Net -2209 ml Constitutional - chronically ill appearing, afebrile, obese HEENT - NC/AT, EOMI, clear conjunctivae, supple, no LAD, no JVD Respiratory - CTAB no crackles or wheezes bilaterally CV - RRR no murmurs, radial and DP pulses 2/4, no peripheral edema Gastrointestinal - Soft, NT/ND, +BS Musculoskeletal - Moves all four extremities Skin - No rashes, lesions or jaundice Neurologic - A&O x 3, no focal neurological deficits Psych - Appropriate mood and affect Lab/Diagnostic Review: Recent Results (from the past 36 hour(s)) POCT glucose Collection Time: 06/21/22 8:34 AM Result Value Ref Range Glucose, POC 199 70 - 199 mg/dL Comprehensive metabolic panel Collection Time: 06/21/22 8:38 AM Result Value Ref Range Sodium 139 135 - 145 mmol/L Potassium, pl 4.0 3.3 - 4.9 mmol/L Chloride 101 97 - 110 mmol/L CO2 27 22 - 32 mmol/L Anion gap 11 2 - 15 mmol/L BUN 36 (H) 8 - 25 mg/dL Creatinine 5.26 (H) 0.80 - 1.30 mg/dL Glucose 199 70 - 199 mg/dL Calcium 8.4 (L) 8.5 - 10.3 mg/dL Bilirubin, total 0.4 0.1 - 1.2 mg/dL Protein, pl 5.6 (L) 6.5 - 8.5 g/dL Albumin 2.7 (L) 3.5 - 5.0 g/dL Alk phos 115 40 - 130 Units/L ALT 28 7 - 55 Units/L AST 52 (H) 10 - 50 Units/L Magnesium Collection Time: 06/21/22 8:38 AM Result Value Ref Range Magnesium 2.8 (H) 1.4 - 2.5 mg/dL CBC with auto differential Collection Time: 06/21/22 8:38 AM Result Value Ref Range WBC 5.4 3.8 - 9.9 K/cumm Hgb 9.0 (L) 13.0 - 17.5 g/dL Hct 27.8 (L) 38.9 - 50.3 % Plt 171 150 - 400 K/cumm MPV 9.8 9.1 - 12.3 fL RBC 3.01 (L) 4.30 - 5.80 M/cumm MCV 92.4 81.3 - 96.4 fL MCH 29.9 27.1 - 33.3 pg MCHC 32.4 32.3 - 35.7 g/dL RDW CV 19.9 (H) 11.1 - 14.9 % RDW SD 63.2 (H) 35.7 - 48.1 fL NRBC abs 0.02 (H) 0.00 - 0.01 K/cumm Differential, auto Collection Time: 06/21/22 8:38 AM Result Value Ref Range Neutrophil abs 3.3 1.7 - 6.5 K/cumm Imm gran abs 0.0 0.0 - 0.1 K/cumm Lymphocyte abs 1.2 0.8 - 3.3 K/cumm Monocyte abs 0.7 0.2 - 0.8 K/cumm Eosinophil abs 0.1 0.0 - 0.5 K/cumm Basophil abs 0.1 0.0 - 0.1 K/cumm Neutrophil pct 60.8 % Imm gran pct 0.7 % Lymphocyte pct 22.0 % Monocyte pct 13.7 % Eosinophil pct 1.9 % Basophil pct 0.9 % eGFR Collection Time: 06/21/22 8:38 AM Result Value Ref Range eGFR 12 (L) 90 - 130 mL/min/1.73 m2 POCT glucose Collection Time: 06/21/22 12:00 PM Result Value Ref Range Glucose, POC 157 70 - 199 mg/dL POCT glucose Collection Time: 06/21/22 4:08 PM Result Value Ref Range Glucose, POC 138 70 - 199 mg/dL CBC with auto differential Collection Time: 06/21/22 5:23 PM Result Value Ref Range WBC 6.5 3.8 - 9.9 K/cumm Hgb 7.5 (L) 13.0 - 17.5 g/dL Hct 23.0 (L) 38.9 - 50.3 % Plt 177 150 - 400 K/cumm MPV 9.8 9.1 - 12.3 fL RBC 2.44 (L) 4.30 - 5.80 M/cumm MCV 94.3 81.3 - 96.4 fL MCH 30.7 27.1 - 33.3 pg MCHC 32.6 32.3 - 35.7 g/dL RDW CV 19.0 (H) 11.1 - 14.9 % RDW SD 60.9 (H) 35.7 - 48.1 fL NRBC abs 0.00 0.00 - 0.01 K/cumm Differential, auto Collection Time: 06/21/22 5:23 PM Result Value Ref Range Neutrophil abs 4.1 1.7 - 6.5 K/cumm Imm gran abs 0.1 0.0 - 0.1 K/cumm Lymphocyte abs 1.2 0.8 - 3.3 K/cumm Monocyte abs 0.9 (H) 0.2 - 0.8 K/cumm Eosinophil abs 0.3 0.0 - 0.5 K/cumm Basophil abs 0.0 0.0 - 0.1 K/cumm Neutrophil pct 62.4 % Imm gran pct 0.8 % Lymphocyte pct 18.5 % Monocyte pct 13.7 % Eosinophil pct 4.0 % Basophil pct 0.6 % Comprehensive metabolic panel Collection Time: 06/21/22 9:55 PM Result Value Ref Range Sodium 136 135 - 145 mmol/L Potassium, pl 4.0 3.3 - 4.9 mmol/L Chloride 98 97 - 110 mmol/L CO2 24 22 - 32 mmol/L Anion gap 14 2 - 15 mmol/L BUN 41 (H) 8 - 25 mg/dL Creatinine 6.03 (H) 0.80 - 1.30 mg/dL Glucose 276 (H) 70 - 199 mg/dL Calcium 8.4 (L) 8.5 - 10.3 mg/dL Bilirubin, total 0.5 0.1 - 1.2 mg/dL Protein, pl 5.9 (L) 6.5 - 8.5 g/dL Albumin 2.7 (L) 3.5 - 5.0 g/dL Alk phos 111 40 - 130 Units/L ALT 32 7 - 55 Units/L AST 48 10 - 50 Units/L Magnesium Collection Time: 06/21/22 9:55 PM Result Value Ref Range Magnesium 2.8 (H) 1.4 - 2.5 mg/dL Lipase Collection Time: 06/21/22 9:55 PM Result Value Ref Range Lipase 227 (H) 10 - 99 Units/L Phosphorus Collection Time: 06/21/22 9:55 PM Result Value Ref Range Phosphorus, pl 4.8 (H) 2.3 - 4.5 mg/dL Triglycerides Collection Time: 06/21/22 9:55 PM Result Value Ref Range Triglycerides 183 (H) <=149 mg/dL Lactate Collection Time: 06/21/22 9:55 PM Result Value Ref Range Lactate 0.8 0.7 - 2.0 mmol/L CBC with auto differential Collection Time: 06/21/22 9:55 PM Result Value Ref Range WBC 5.9 3.8 - 9.9 K/cumm Hgb 7.5 (L) 13.0 - 17.5 g/dL Hct 23.6 (L) 38.9 - 50.3 % Plt 174 150 - 400 K/cumm MPV 9.7 9.1 - 12.3 fL RBC 2.51 (L) 4.30 - 5.80 M/cumm MCV 94.0 81.3 - 96.4 fL MCH 29.9 27.1 - 33.3 pg MCHC 31.8 (L) 32.3 - 35.7 g/dL RDW CV 18.9 (H) 11.1 - 14.9 % RDW SD 60.0 (H) 35.7 - 48.1 fL NRBC abs 0.02 (H) 0.00 - 0.01 K/cumm POCT glucose Collection Time: 06/21/22 9:55 PM Result Value Ref Range Glucose, POC 272 (H) 70 - 199 mg/dL Differential, auto Collection Time: 06/21/22 9:55 PM Result Value Ref Range Neutrophil abs 3.7 1.7 - 6.5 K/cumm Imm gran abs 0.0 0.0 - 0.1 K/cumm Lymphocyte abs 1.0 0.8 - 3.3 K/cumm Monocyte abs 0.8 0.2 - 0.8 K/cumm Eosinophil abs 0.3 0.0 - 0.5 K/cumm Basophil abs 0.0 0.0 - 0.1 K/cumm Neutrophil pct 63.3 % Imm gran pct 0.5 % Lymphocyte pct 16.3 % Monocyte pct 14.3 % Eosinophil pct 5.1 % Basophil pct 0.5 % eGFR Collection Time: 06/21/22 9:55 PM Result Value Ref Range eGFR 10 (L) 90 - 130 mL/min/1.73 m2 POCT glucose Collection Time: 06/22/22 5:54 AM Result Value Ref Range Glucose, POC 370 (H) 70 - 199 mg/dL POCT glucose Collection Time: 06/22/22 7:38 AM Result Value Ref Range Glucose, POC 318 (H) 70 - 199 mg/dL POCT glucose Collection Time: 06/22/22 7:40 AM Result Value Ref Range Glucose, POC 364 (H) 70 - 199 mg/dL POCT glucose Collection Time: 06/22/22 9:07 AM Result Value Ref Range Glucose, POC 313 (H) 70 - 199 mg/dL POCT glucose Collection Time: 06/22/22 10:46 AM Result Value Ref Range Glucose, POC 197 70 - 199 mg/dL POCT glucose Collection Time: 06/22/22 11:38 AM Result Value Ref Range Glucose, POC 162 70 - 199 mg/dL Comprehensive metabolic panel Collection Time: 06/22/22 3:21 PM Result Value Ref Range Sodium 138 135 - 145 mmol/L Potassium, pl 3.7 3.3 - 4.9 mmol/L Chloride 99 97 - 110 mmol/L CO2 27 22 - 32 mmol/L Anion gap 12 2 - 15 mmol/L BUN 42 (H) 8 - 25 mg/dL Creatinine 7.25 (H) 0.80 - 1.30 mg/dL Glucose 103 70 - 199 mg/dL Calcium 8.6 8.5 - 10.3 mg/dL Bilirubin, total 0.4 0.1 - 1.2 mg/dL Protein, pl 6.1 (L) 6.5 - 8.5 g/dL Albumin 2.9 (L) 3.5 - 5.0 g/dL Alk phos 112 40 - 130 Units/L ALT 31 7 - 55 Units/L AST 41 10 - 50 Units/L Magnesium Collection Time: 06/22/22 3:21 PM Result Value Ref Range Magnesium 2.9 (H) 1.4 - 2.5 mg/dL CBC with auto differential Collection Time: 06/22/22 3:21 PM Result Value Ref Range WBC 4.9 3.8 - 9.9 K/cumm Hgb 7.8 (L) 13.0 - 17.5 g/dL Hct 24.1 (L) 38.9 - 50.3 % Plt 183 150 - 400 K/cumm MPV 10.2 9.1 - 12.3 fL RBC 2.54 (L) 4.30 - 5.80 M/cumm MCV 94.9 81.3 - 96.4 fL MCH 30.7 27.1 - 33.3 pg MCHC 32.4 32.3 - 35.7 g/dL RDW CV 18.5 (H) 11.1 - 14.9 % RDW SD 58.2 (H) 35.7 - 48.1 fL NRBC abs 0.00 0.00 - 0.01 K/cumm Differential, auto Collection Time: 06/22/22 3:21 PM Result Value Ref Range Neutrophil abs 2.5 1.7 - 6.5 K/cumm Imm gran abs 0.0 0.0 - 0.1 K/cumm Lymphocyte abs 1.2 0.8 - 3.3 K/cumm Monocyte abs 0.8 0.2 - 0.8 K/cumm Eosinophil abs 0.5 0.0 - 0.5 K/cumm Basophil abs 0.0 0.0 - 0.1 K/cumm Neutrophil pct 51.2 % Imm gran pct 0.4 % Lymphocyte pct 23.3 % Monocyte pct 15.4 % Eosinophil pct 9.3 % Basophil pct 0.4 % eGFR Collection Time: 06/22/22 3:21 PM Result Value Ref Range eGFR 8 (L) 90 - 130 mL/min/1.73 m2 POCT glucose Collection Time: 06/22/22 5:37 PM Result Value Ref Range Glucose, POC 88 70 - 199 mg/dL I have reviewed the laboratory results. Imaging Results: FL Modified Barium Swallow W Video Narrative: EXAMINATION: MODIFIED BARIUM SWALLOW HISTORY: Concern for dysphagia. TECHNIQUE: This procedure was completed in conjunction with a Speech Language Pathologist. The patient was given barium of multiple different consistencies to swallow. Video fluoroscopy was employed during the exam. FINDINGS: Oral-pharyngeal swallow function is mildly impaired. Penetration: Yes There is penetration of thin liquids and nectar thick liquids. Penetration is sensed. The penetrated material is cleared. Aspiration: No Residue:Yes There is oral-pharyngeal residue of purees and solids. Residue is not sensed. The residual material is cleared. Other comments: None Impression: The swallowing mechanism is abnormal; see above comments. Please refer to the Speech Pathology procedure note for safe swallow recommendations as well as additional information regarding the oral-pharyngeal swallow function, plan of care, and recommended follow up. Dictated by: Adam Aiken M.D. The radiology attending physician has personally reviewed this study, and had reviewed and/or edited this written report and agrees with it. Electronically signed by: Félix Chahal M.D. I have independently reviewed and interpreted all results. * Plan of Care - Nisha Oneil RN - 06/22/2022 5:01 PM CDT Goals: Clinical Goals for the Shift: PD Summary:monitor hemodynamics; TTF * Plan of Care - Rossi Hay RN - 06/22/2022 2:33 PM CDT Per Medical Chart/Rounds/IDR: Patient not medically ready for discharge ADD: 06/27 Plan & referrals made/in place: 51 yo male transferred to [facility] ICU for complex PCI with impella.Unable to tolerate SLED, transitioned to CCPD No referrals at this time. Pending PT/OT eval Support following discharge: Family Transportation: TBD F/U Appointments: None at this time Patient's Identified Problem/Goal Problem: Ensure acute medical needs are met and that patient has a safe discharge plan. Goal: Secure a discharge plan that patient/family are agreeable with and ensure patient has continuum of care. Patient and/or family are agreeable with plan. city manager will continue to follow and assist with discharge planning as needed. If any further discharge needs arise, please contact the covering keycase assembler. Rossi Hay RN * Consults, Subsequent - Dora Delarosa NP - 06/22/2022 12:39 PM CDT Endocrinology & Diabetes Progress Note Patient: Adelia Garvin Jr., 51 y.o. male (: 1970) Room: [place] [address] ( ) LOS: 18 Adelia Garvin Jr. is a 51 y.o. male with PMH significant for T1DM on insulin pump, atrial fibrillation, HTN, HLD, CAD s/p PCI, ESRD on PD, and hyperparathyroidism who presented to the hospital with weakness, N/V, diarrhea and chest pain. Hospital course complicated by respiratory failure requiring intubation, cardiogenic shock and agitation. The Endocrinology/Diabetes Service is providing diabetes/insulin pump management and discharge planning recommendations during this hospitalization. Interval Events & Subjective There were no acute events overnight. Mr. Garvin reports his appetite is so- so . Denies nausea/vomiting/diarrhea, chest pain, shortness of breath, fever or chills today. Non-productive cough. Peritoneal dialysis resumed last night. Diet: Adult Diet Restricted; [facility] Consistent Carbohydrate; Renal Over the previous 24 hours, blood glucose not at target with range of 138-370 mg/dl with 72 units TDD insulin coverage. Tube feeding discontinued; diet started. Peritoneal dialysis likely contributedto severe hyperglycemia this morning as blood glucose trending up with start of PD. Target inpatient blood glucose is 100-180 mg/dl. AM blood glucose was 364 mg/dl; breakfast held and treated with lispro 14 units subcutaneously. Pre-lunch blood glucose was 162 mg/dl; diet resumed. Recent Labs Lab Units 06/22/22 1138 06/22/22 1046 06/22/22 0907 06/22/22 0740 06/22/22 0738 06/22/22 0554 06/21/22 2155 06/21/22 1608 06/21/22 1200 GLUCOSE mg/dL -- -- -- -- -- -- 276* -- -- POC GLUCOSE MONITOR mg/dL 162 197 313* 364* 318* 370* 272* 138 157 Interval Review of Systems Twelve point ROS reviewed and negative except as noted in HPI. All other systems negative. Vitals & Exam Temp: [36.9 ??C (98.4 ??F)] 36.9 ??C (98.4 ??F) Pulse: [104-114] 110 BP: (121-145)/(57-75) 127/73 Resp: [18-24] 19 SpO2: [94 %-100 %] 99 % No intake/output data recorded. Physical Exam Gen : pleasant 51 year old male resting quietly in bed in no acute distress, alert, appropriate, cooperative, appears stated age, well-developed, well-nourished HENT : normocephalic, atraumatic, moist mucus membranes Eyes : conjunctiva clear, anicteric, no proptosis/exophthalmos/lid lag Pulm : non-labored, supplemental oxygen Extr : atraumatic, no cyanosis/clubbing/edema Skin : turgor normal, no rashes/wounds/lesions Neuro : alert, speech fluent, comprehension intact, moving all extremities, IV access x 2 LUE Psych : cooperative, appropriate affect & mood, good insight & judgment Data Medications, labs, imaging, and diagnostics independently reviewed in Epic and commented on below. Lab Results Component Value Date TSH 0.80 03/21/2017 Lab Results Component Value Date CHOL 149 06/04/2022 TRIG 183 (H) 06/21/2022 HDL 34 (L) 06/04/2022 LDLCALC 82 06/04/2022 Lab Results Component Value Date 25HYDROVITD 22.7 (L) 03/22/2017 Lab Results Component Value Date HGBA1C 7.8 (H) 06/04/2022 Assessment & Plan 51 y.o. male with PMH significant for T1DM on insulin pump, atrial fibrillation, HTN, HLD, CAD s/p PCI, ESRD on PD, and hyperparathyroidism who presented to the hospital with weakness, N/V, diarrhea and chest pain. Hospital course complicated by respiratory failure requiring intubation, cardiogenicshock and agitation. 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, with prison use of insulin, complicated by ESRD on PD, CAD s/p PCI, CHF - HbA1c 7.4% - Uses Omnipod and Dexcom G6 at home, not currently on this- doesn't have the supplies -On significantly higher basal rates on pump at night due to peritoneal dialysis -home settings: Basal rate 0330 >>1.7 0800 >> 0.8 2000 >> 5.8 ICR1:6.5 ISF1:25 FIT106 TIA 4 Over the previous 24 hours, blood glucose not at target with range of 138-370 mg/dl with 72 units TDD insulin coverage. Tube feeding discontinued; diet started. Peritoneal dialysis likely contributedto severe hyperglycemia this morning as blood glucose trending up with start of PD. Target inpatient blood glucose is 100-180 mg/dl. AM blood glucose was 364 mg/dl; breakfast held and treated with lispro 14 units subcutaneously. Pre-lunch blood glucose was 162 mg/dl; diet resumed. Inpatient glycemic management complicated by variable oral intake, stress and acute illness. Glycemia trending up post prandially and overnight with resumption of peritoneal dialysis; recommend increasing bolus insulin with meals and NPH dose with peritoneal dialysis today. We will continue to intensely monitor blood glucose and titrate insulin as needed to optimize glycemic control to avoid hypoglycemic/hyperglycemic events. Recommendations for diabetes management were discussed with the primary team. Recommendations: - Continue Lantus 33 units qAM - Increase Humalog from 4 units to 10 units with meals - Continue resistant correction scale TID/HS/0200 - Increase NPH from 15 units to 20 units with start of peritoneal dialysis session - POC glucoses TID/HS/0200 Discharge recommendations: - TBD # ESRD on PD - Serum Cr = 3.87=>5.26=>6.03 today - CKD and ESRD are independent risk factors for hypoglycemia ## Discharge Planning - Follow-up with home green house manager -- Dora Delarosa NP Endocrinology, Metabolism, & Lipid Research Contact Info: New Consults: [phone]) General Endocrine (Non-Diabetes): [phone] (Check 'Treatment Team' assignment for Diabetes 1 vs 2 vs 3) Diabetes 1: Diabetes Fellow: [phone] Diabetes 2: Dora Delarosa NP: [phone] Diabetes 3: See Treatment Team Provider (or call Dora Delarosa, above) Diabetes After-Hours & Weekends: Diabetes Fellow * Plan of Care - Jersey Castano, FANY - 06/22/2022 1:10 AM CDT Plan of Care: continue with CPAP overnight. * Plan of Care - Annmarie Ayala RN - 06/22/2022 12:00 AM CDT Problem: Health Behavior: Goal: Understanding of discharge needs will improve Outcome: Progressing Problem: Lack of Knowledge: Goal: Ability to state ways to decrease the risk of falls will improve Outcome: Progressing Problem: Safety: Goal: Will remain free from falls Outcome: Progressing Goal: Will remain free from injury from falls Outcome: Progressing Goal: Will remain free from falls and injury in home environment Outcome: Progressing Problem: Lack of Knowledge: Goal: Knowledge of disease or condition and prescribed therapeutic regimen will improve Outcome: Progressing Problem: Coping: Goal: Level of anxiety will decrease Outcome: Progressing Problem: Sensory: Goal: Pain level will decrease Outcome: Progressing Problem: Lack of Knowledge: Goal: Ability to describe self-care measures that may prevent or decrease complications will improve Outcome: Progressing Goal: Knowledge of disease or condition will improve Outcome: Progressing Goal: Knowledge of the prescribed therapeutic regimen will improve Outcome: Progressing Goal: Knowledge of prevention and discharge planning will improve Outcome: Progressing Problem: Coping: Goal: Ability to adjust to condition or change in health will improve Outcome: Progressing Problem: Fluid Volume: Goal: Ability to maintain a balanced intake and output will improve Outcome: Progressing Problem: Health Behavior: Goal: Ability to identify and alter actions that are detrimental to health will improve Outcome: Progressing Goal: Ability to identify and utilize available resources and services will improve Outcome: Progressing Goal: Ability to manage health-related needs will improve Outcome: Progressing Problem: Nutritional: Goal: Maintenance of adequate nutrition will improve Outcome: Progressing Goal: Progress toward achieving an optimal weight will improve Outcome: Progressing Problem: Physical Regulation: Goal: Complications related to the disease process, condition or treatment will be avoided or minimized Outcome: Progressing Goal: Diagnostic test results will improve Outcome: Progressing Problem: Skin Integrity: Goal: Risk for impaired skin integrity will decrease Outcome: Progressing Problem: Lack of Knowledge: Goal: Ability to develop a pain control plan will improve Outcome: Progressing Goal: Ability to identify pain intensity on a pain scale and rate it consistently will improve Outcome: Progressing Goal: Ability to notify healthcare provider of pain before it becomes unmanageable or unbearable will improve Outcome: Progressing Problem: Medication: Goal: Satisfaction with pain management regimen will improve Outcome: Progressing Problem: Sensory: Goal: Ability to identify factors that increase the pain will improve Outcome: Progressing Goal: Pain level will decrease Outcome: Progressing Problem: Lack of Knowledge: Goal: Ability to develop a pain control plan will improve Outcome: Progressing Goal: Ability to identify pain intensity on a pain scale and rate it consistently will improve Outcome: Progressing Goal: Ability to notify healthcare provider of pain before it becomes unmanageable or unbearable will improve Outcome: Progressing Problem: Medication: Goal: Satisfaction with pain management regimen will improve Outcome: Progressing Problem: Sensory: Goal: Ability to identify factors that increase the pain will improve Outcome: Progressing Goal: Pain level will decrease Outcome: Progressing Problem: Activity: Goal: Ability to return to normal activity level will improve Outcome: Progressing Problem: Lack of Knowledge: Goal: Knowledge of the prescribed therapeutic regimen will improve Outcome: Progressing Problem: Coping: Goal: Ability to cope will improve Outcome: Progressing Problem: Health Behavior: Goal: Identification of resources available to assist in meeting health care needs will improve Outcome: Progressing Problem: Sensory: Goal: Pain level will decrease Outcome: Progressing Problem: Cardiac: Goal: Ability to maintain an adequate cardiac output will improve Outcome: Progressing Goal: Hemodynamic stability will improve Outcome: Progressing Problem: Lack of Knowledge: Goal: Ability to state signs and symptoms to report to health care provider will improve Outcome: Progressing Goal: Knowledge of the prescribed therapeutic regimen will improve Outcome: Progressing Goal: Mental status will improve Outcome: Progressing Problem: Fluid Volume: Goal: Ability to achieve and maintain adequate urine output will improve Outcome: Progressing Problem: Respiratory: Goal: Respiratory status will improve Outcome: Progressing Problem: Lack of Knowledge: Goal: Verbalization of understanding the information provided will improve Outcome: Progressing Goals: Clinical Goals for the Shift: PD Summary: tolerating PD * Consults, Subsequent - James Horvath MD - 06/21/2022 5:24 PM CDT NEPHROLOGY CONSULT SUBSEQUENT VISIT INTERVAL HISTORY: NAEO. Patient had SLED yesterday, which unfortunately was stopped early due to chills and afib withRVR. He got 1 unit of PRBC. Phos this morning of 2.9. OBJECTIVE Vitals: 06/21/22 1400 06/21/22 1452 06/21/22 1500 06/21/22 1600 BP: 144/78 107/69 100/58 121/62 BP Location: Right arm Right arm Right arm Patient Position: HOB 30 degrees HOB 30 degrees HOB 30 degrees Pulse: 98 101 107 Resp: 21 24 17 Temp: TempSrc: SpO2: 94% 95% 91% Weight: Height: PHYSICAL EXAM: General: Intubated and sedated Eyes: PERRL. Sclera nonicteric. ENT: MMM. ETT in place. Trialysis line in L neck. Cardiac: Regular rate and rhythm. Pulm: On ventilator. Soft crackles throughout lung charles GI/Abd: Soft, obese, nondistended, BS positive Lymphatic: No significant LAD Extremities: No peripheral cyanosis. Warm extremities 1+ pitting edema. Skin: No rash or bruises Neuro: Sedated on ventilator. PERRL. Date 06/20/22 07 - 06/21/22 0659 06/21/22 07 - 06/22/22 0659 Shift [id number] 5448-7549 24 Hour Total 1843-5688 5950-3865 24 Hour Total INTAKE I.V.(mL/kg) 225(1.8) 399.6(3.4) 624.6(5.3) 133.2(1.1) 133.2(1.1) Blood 350 350 NG/GT 100 190 290 100 100 IV Piggyback 150 150 Shift Total(mL/kg) 825(6.7) 589.6(5) 1414.6(11.9) 233.2(2) 233.2(2) OUTPUT Urine(mL/kg/hr) 350(0.2) 350(0.1) Emesis/NG output 0 0 0 0 Other 837 837 Stool 50 50 Shift Total(mL/kg) 887(7.2) 350(3) 1237(10.4) 0(0) 0(0) NET -62 239.6 177.6 233.2 233.2 Weight (kg) 123 118.6 118.6 118.6 118.6 118.6 LABORATORY DATA: Recent Labs Lab Units 06/21/22 0838 06/21/22 0021 06/20/22 1818 WBC K/cumm 5.4 6.5 8.3 HEMOGLOBIN g/dL 9.0* 7.4* 7.7* PLATELETS K/cumm 171 179 188 Recent Labs Lab Units 06/21/22 0838 06/20/22 1946 06/20/22 0824 06/19/22 0909 06/18/22 2250 06/18/22 0852 06/17/22 2117 SODIUM mmol/L 139 137 140 < > 140 143 142 POTASSIUM PLASMA mmol/L 4.0 4.9 4.9 < > 4.3 4.0 3.2* CHLORIDE mmol/L 101 102 104 < > 103 104 104 CO2 mmol/L 27 23 25 < > 22 23 23 BUN SERUM mg/dL 36* 26* 25 < > 35* 40* 41* CREATININE mg/dL 5.26* 3.87* 3.43* < > 5.01* 6.24* 5.65* ALBUMIN g/dL 2.7* 2.7* 2.8* < > 2.8* 3.3* 2.7* CALCIUM mg/dL 8.4* 8.5 8.4* < > 8.7 9.5 9.3 MAGNESIUM mg/dL 2.8* 2.6* 2.7* < > 3.1* 2.9* 2.9* PHOSPHORUS PLASMA mg/dL -- 2.9 -- -- 5.2* -- 5.8* VANCOMYCIN RM mcg/mL -- -- -- -- 38.4 51.8 -- < > = values in this interval not displayed. Lab Results Component Value Date CALCIUM 8.4 (L) 06/21/2022 CAION 4.62 06/07/2022 PHOS 2.9 06/20/2022 Lab Results Component Value Date IRON 50 06/07/2022 TIBC 130 (L) 06/07/2022 TRANSFERSAT 38 06/07/2022 FERRITIN 2,062 (H) 06/07/2022 CURRENT MEDICATIONS: aspirin, 81 mg, feeding tube, Daily atorvastatin, 80 mg, feeding tube, Daily calcitRIOL, 0.25 mcg, feeding tube, Daily [Held by Provider] calcium acetate(phosphat bind), 667 mg, oral, QID clopidogreL, 75 mg, feeding tube, Daily ezetimibe, 10 mg, feeding tube, Daily gentamicin, , topical, Daily insulin glargine, 33 Units, subcutaneous, QAM insulin lispro, 0-10 Units, subcutaneous, TID with meals insulin lispro, 0-5 Units, subcutaneous, Nightly insulin lispro, 4 Units, subcutaneous, TID with meals insulin NPH, 15 Units, subcutaneous, Nightly metoprolol tartrate, 12.5 mg, oral, Q6H pantoprazole, 40 mg, intravenous, BID polyvinyl alcohol-povidone, 1 drop, each eye, QID peritoneal fluid with or without additives for CCPD, peritoneal fluid with or without additives for CCPD, peritoneal fluid with or without additives for CCPD, peritoneal fluid with or without additives for CCPD, [Held by Provider] heparin, 0-33 Units/kg/hr, Last Rate: Stopped (06/20/22 0014) norepinephrine, 0-2 mcg/kg/min, Last Rate: Stopped (06/20/22129) sodium chloride 0.9%, 10 mL/hr, Last Rate: 10 mL/hr (06/12/22 0834) sodium chloride 0.9%, 3-12 mL/hr sodium chloride 0.9%, 3-12 mL/hr, Last Rate: 3 mL/hr (06/20/22 0100) ASSESSMENT AND RECOMMENDATIONS ESRD on PD - Schedule: nightly - last OP HD: 06/03/2022 - Access: Lt LQ PD catheter Patient was on CVVHDF from 06/07-06/15, when attempt was made to switch back to CCPD given line issues. Was on continuous PD 06/15-06/18. CRRT again from 06/18- 06/19, SLED 06/20. -Now that patient is extubated and volume status is better controlled, we will switch back to CCPD.Monitor UF from CCPD, will make changes as needed to ensure fluid balance. -Daily dressing changes for PD catheter, with gentamycin -Daily BM to prevent catheter malpositioning Patient seen and discussed with my attending, Dr. Driver 06/21/22 James Horvath MD Nephrology Fellow PGY-4 Consult 1 Service Contact (phone): [phone] After hours and weekends: please page [phone] Cosigned by Miriam Driver MD at 07/04/2022 10:00 AM SENIOR ART DIRECTOR OR ART DIRECTOR Associated attestation - Miriam Driver MD - 07/04/2022 10:00 AM SENIOR ART DIRECTOR I have seen and examined the patient on 06/21/22. I agree with the findings and plan of care as documented in the nephrology Fellow's note. Miriam Driver MD Biology Department Chair Division of Nephrology * Consults, Subsequent - Dora Delarosa NP - 06/21/2022 1:09 PM CDT Endocrinology & Diabetes Progress Note Patient: Adelia Garvin Jr., 51 y.o. male (: 1970) Room: [place] [id number] ( ) LOS: 17 Adelia Garvin Jr. is a 51 y.o. male with PMH significant for T1DM on insulin pump, atrial fibrillation, HTN, HLD, CAD s/p PCI, ESRD on PD, and hyperparathyroidism who presented to the hospital with weakness, N/V, diarrhea and chest pain. Hospital course complicated by respiratory failure requiring intubation, cardiogenic shock and agitation. The Endocrinology/Diabetes Service is providing diabetes/insulin pump management and discharge planning recommendations during this hospitalization. Interval Events & Subjective There were no acute events overnight. Mr. Garvin reports diarrhea. Denies nausea/vomiting, chest pain, shortness of breath, fever or chills today. To have modified barium swallow to determine if diet can be started and tube feeding discontinued. Diet: Diet, Tube Feeding No Tray Impact Peptide 1.5 Nikos; 30; Every 4 hours; Prosource TF 45 ml QID Over the previous 24 hours, blood glucose not at target with range of 124-270 mg/dl with 77 units TDD insulin coverage. Impact Peptide 1.5 at 30 ml/hour provides ~16.8 grams CHO every 4 hours; currently on hold pending swallow evaluation. Target inpatient blood glucose is 100-180 mg/dl. AM blood glucose was 199 mg/dl. At 1200, blood glucose was 157 mg/dl while NPO. Recent Labs Lab Units 06/21/22 1200 06/21/22 0838 06/21/22 0834 06/21/22 0530 06/21/22 0022 06/20/22 1949 06/20/22 1946 06/20/22 1553 06/20/22 0824 06/20/22 0821 GLUCOSE mg/dL -- 199 -- -- -- -- 188 -- 144 -- POC GLUCOSE MONITOR mg/dL 157 -- 199 270* 231* 177 -- 124 -- 152 Interval Review of Systems Twelve point ROS reviewed and negative except as noted in HPI. All other systems negative. Vitals & Exam Pulse: [99-111] 101 BP: (118-162)/(37-83) 147/53 Resp: [14-29] 29 SpO2: [91 %-99 %] 93 % I/O this shift: In: 233.2 [I.V.:133.2; NG/GT:100] Out: 0 Physical Exam Gen : pleasant 51 year old male resting quietly in bed in no acute distress, alert, appropriate, cooperative, appears stated age, well-developed, well-nourished HENT : normocephalic, atraumatic, moist mucus membranes, NGT, HD double cath Eyes : conjunctiva clear, anicteric, no proptosis/exophthalmos/lid lag Pulm : non-labored, supplemental oxygen Extr : atraumatic, no cyanosis/clubbing/edema Skin : turgor normal, no rashes/wounds/lesions Neuro : alert, speech fluent, comprehension intact, moving all extremities, IV access x 2 LUE Psych : cooperative, appropriate affect & mood, good insight & judgment Data Medications, labs, imaging, and diagnostics independently reviewed in Epic and commented on below. Lab Results Component Value Date TSH 0.80 03/21/2017 Lab Results Component Value Date CHOL 149 06/04/2022 TRIG 181 (H) 06/20/2022 HDL 34 (L) 06/04/2022 LDLCALC 82 06/04/2022 Lab Results Component Value Date 25HYDROVITD 22.7 (L) 03/22/2017 Lab Results Component Value Date HGBA1C 7.8 (H) 06/04/2022 Assessment & Plan 51 y.o. male with PMH significant for T1DM on insulin pump, atrial fibrillation, HTN, HLD, CAD s/p PCI, ESRD on PD, and hyperparathyroidism who presented to the hospital with weakness, N/V, diarrhea and chest pain. Hospital course complicated by respiratory failure requiring intubation, cardiogenicshock and agitation. 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 Impact Peptide 1.5 at 30 ml/hour provides ~16.8 grams CHO every 4 hours; currently on hold pending swallow evaluation. Target inpatient blood glucose is 100-180 mg/dl. AM blood glucose was 199 mg/dl. At 1200, blood glucose was 157 mg/dl while NPO. Inpatient glycemic management complicated by variable oral intake, stress and acute illness. Glycemia trending up overnight with resumption of tube feeding; recommend increasing bolus insulin with tube feeding (if resumed and diet not started). We will continue to intensely monitor blood glucose and titrate insulin as needed to optimize glycemic control to avoid hypoglycemic/hyperglycemic events. Recommendations for diabetes management were discussed with the primary team. Recommendations: - Continue Lantus 33 units qAM - Increase Humalog from 6 units to 8 units Q4hrs while getting tube feeds; hold if tube feeds are held - If he starts on a diet, recommend changing to Humalog 4 units post meals (if he takes at least 25g of carbs or eats at least 50% of meal) - Continue resistant NPO correction scale q4h for now; if starting diet please change to resistant CS TID, HS for patients on diet - If peritoneal dialysis is resumed, please restart NPH 15 units at the beginning of PD session - POC glucoses q4hrs Discharge recommendations: - TBD # ESRD on PD - Serum Cr = 3.87=>5.26 today - CKD and ESRD are independent risk factors for hypoglycemia - May need NPH at PD start once transitioned back from SLED ## Discharge Planning - Follow-up with home green house manager -- Dora Delarosa NP Endocrinology, Metabolism, & Lipid Research Contact Info: New Consults: [phone]) General Endocrine (Non-Diabetes): [phone] (Check 'Treatment Team' assignment for Diabetes 1 vs 2 vs 3) Diabetes 1: Diabetes Fellow: [phone] Diabetes 2: Dora Delarosa CHIEF AIRLINE RADIO OPERATOR: [phone] Diabetes 3: See Treatment Team Provider (or call Dora Delarosa, above) Diabetes After-Hours & Weekends: Diabetes Fellow * Plan of Care - Rossi Hay RN - 06/21/2022 12:11 PM CDT Outlier review meeting held today with this CM, CM leadership team and physician advisors present. Patient's current plan of care, expected discharge date, and disposition discussed. Rossi Hay RN * Plan of Care - Margaret Escobar RN - 06/21/2022 9:37 AM CDT Goals: Clinical Goals for the Shift: Speech eval, modified barrium swallow, trend labs, monitor hemodynamics, Summary: Problem: Health Behavior: Goal: Understanding of discharge needs will improve Outcome: Progressing Problem: Lack of Knowledge: Goal: Ability to state ways to decrease the risk of falls will improve Outcome: Progressing Problem: Safety: Goal: Will remain free from falls Outcome: Progressing Problem: Lack of Knowledge: Goal: Knowledge of the prescribed therapeutic regimen will improve Outcome: Progressing Problem: Lack of Knowledge: Goal: Knowledge of prevention and discharge planning will improve Outcome: Progressing Problem: Nutritional: Goal: Maintenance of adequate nutrition will improve Outcome: Progressing * Plan of Care - Devan Costa RRT - 06/21/2022 5:17 AM CDT Pt. wore their hospital provided NPPV as ordered. They tolerated with no issue. Patient requires RTassistance with their NPPV. Plan - Continue as ordered * Plan of Care - Annmarie Ayala RN - 06/21/2022 1:10 AM CDT Problem: Health Behavior: Goal: Understanding of discharge needs will improve Outcome: Progressing Problem: Lack of Knowledge: Goal: Ability to state ways to decrease the risk of falls will improve Outcome: Progressing Problem: Safety: Goal: Will remain free from falls Outcome: Progressing Goal: Will remain free from injury from falls Outcome: Progressing Goal: Will remain free from falls and injury in home environment Outcome: Progressing Problem: Lack of Knowledge: Goal: Knowledge of disease or condition and prescribed therapeutic regimen will improve Outcome: Progressing Problem: Coping: Goal: Level of anxiety will decrease Outcome: Progressing Problem: Sensory: Goal: Pain level will decrease Outcome: Progressing Problem: Lack of Knowledge: Goal: Ability to describe self-care measures that may prevent or decrease complications will improve Outcome: Progressing Goal: Knowledge of disease or condition will improve Outcome: Progressing Goal: Knowledge of the prescribed therapeutic regimen will improve Outcome: Progressing Goal: Knowledge of prevention and discharge planning will improve Outcome: Progressing Problem: Coping: Goal: Ability to adjust to condition or change in health will improve Outcome: Progressing Problem: Fluid Volume: Goal: Ability to maintain a balanced intake and output will improve Outcome: Progressing Problem: Health Behavior: Goal: Ability to identify and alter actions that are detrimental to health will improve Outcome: Progressing Goal: Ability to identify and utilize available resources and services will improve Outcome: Progressing Goal: Ability to manage health-related needs will improve Outcome: Progressing Problem: Nutritional: Goal: Maintenance of adequate nutrition will improve Outcome: Progressing Goal: Progress toward achieving an optimal weight will improve Outcome: Progressing Problem: Physical Regulation: Goal: Complications related to the disease process, condition or treatment will be avoided or minimized Outcome: Progressing Goal: Diagnostic test results will improve Outcome: Progressing Problem: Skin Integrity: Goal: Risk for impaired skin integrity will decrease Outcome: Progressing Problem: Lack of Knowledge: Goal: Ability to develop a pain control plan will improve Outcome: Progressing Goal: Ability to identify pain intensity on a pain scale and rate it consistently will improve Outcome: Progressing Goal: Ability to notify healthcare provider of pain before it becomes unmanageable or unbearable will improve Outcome: Progressing Problem: Medication: Goal: Satisfaction with pain management regimen will improve Outcome: Progressing Problem: Sensory: Goal: Ability to identify factors that increase the pain will improve Outcome: Progressing Goal: Pain level will decrease Outcome: Progressing Problem: Lack of Knowledge: Goal: Ability to develop a pain control plan will improve Outcome: Progressing Goal: Ability to identify pain intensity on a pain scale and rate it consistently will improve Outcome: Progressing Goal: Ability to notify healthcare provider of pain before it becomes unmanageable or unbearable will improve Outcome: Progressing Problem: Medication: Goal: Satisfaction with pain management regimen will improve Outcome: Progressing Problem: Sensory: Goal: Ability to identify factors that increase the pain will improve Outcome: Progressing Goal: Pain level will decrease Outcome: Progressing Problem: Activity: Goal: Ability to return to normal activity level will improve Outcome: Progressing Problem: Lack of Knowledge: Goal: Knowledge of the prescribed therapeutic regimen will improve Outcome: Progressing Problem: Health Behavior: Goal: Identification of resources available to assist in meeting health care needs will improve Outcome: Progressing Problem: Sensory: Goal: Pain level will decrease Outcome: Progressing Problem: Cardiac: Goal: Ability to maintain an adequate cardiac output will improve Outcome: Progressing Goal: Hemodynamic stability will improve Outcome: Progressing Problem: Lack of Knowledge: Goal: Ability to state signs and symptoms to report to health care provider will improve Outcome: Progressing Goal: Knowledge of the prescribed therapeutic regimen will improve Outcome: Progressing Goal: Mental status will improve Outcome: Progressing Problem: Fluid Volume: Goal: Ability to achieve and maintain adequate urine output will improve Outcome: Progressing Problem: Respiratory: Goal: Respiratory status will improve Outcome: Progressing Problem: Lack of Knowledge: Goal: Verbalization of understanding the information provided will improve Outcome: Progressing Goals: Clinical Goals for the Shift: trend HGB Summary: * Assessment & Plan Note - Sandrine Myers MD - 06/20/2022 5:53 PM CDT Associated Problem(s): Acute hypoxemic respiratory failure (HCC) Mr. Garvin is a 51 y/o M with medical [...] --Continue to keep as dry as possible * Significant Event - Chandrakant Kulkarni MD - 06/20/2022 5:42 PM CDT I got called around 5:35pm by dialysis staff regarding SLED being stopped and plan to hold for now.I called team on floor and discussed that patient had chills, and cardiac rhythm developed into Afib with AVR. Amiodarone bolus started. I was informed the current plan is to hold off dialysis tonight. Informed dialysis nursing of the conversation. I am manager field investigations tonight, please do not hesitate to page if plans change. Chandrakant Nava MD Nephrology Fellow, PGY-4 Night Service [phone]. * Consults, Subsequent - Carol Sanchez MD - 06/20/2022 1:59 PM CDT Endocrinology & Diabetes Progress Note Patient: Adelia Garvin Jr., 51 y.o. male (: 1970) Room: [id number] ( ) LOS: 16 Adelia Garvin Jr. is a 51 y.o. male with PMHx CHF (EF 50% in 2017), atrial fibrillation not on OAC, HTN/HLD, CAD s/p PCI, ESRD on PD, hyperparathyroidism presenting with weakness, N/V, diarrhea and chest pain. He is scheduled for C on 06/06. Diabetes service consulted for T1DM on insulin pump. Interval Events & Subjective He was extubated and off pressors as of this morning. Still on CRRT, previously on PD but per Nephrology notes would transition first to SLED. Brother at bedside. Primary service examining Hb drop. TF held currently but may be restarted. No plan to transition Ra diet today pending Hb eval, possibly tm. Mr. Garvin states he is doing better, is tired, no focal complaints besides the feeding tube. Diet: Diet, Tube Feeding No Tray Impact Peptide 1.5 Nikos; 30; Every 4 hours; Prosource TF 45 ml QID Recent Labs Lab Units 06/20/22 0824 06/20/22 0821 06/20/22 0457 06/20/22 0001 06/19/22 2055 06/19/22 2054 06/19/22 1659 06/19/22 1322 06/19/22 0909 06/19/22 0908 GLUCOSE mg/dL 144 -- -- -- -- 148 -- -- 205* -- POC GLUCOSE MONITOR mg/dL -- 152 174 206* 161 -- 205* 101 -- 217* Interval Review of Systems Twelve point ROS reviewed and negative except as noted in HPI. All other systems negative. Vitals & Exam Temp: [36.4 ??C (97.5 ??F)-36.9 ??C (98.4 ??F)] 36.9 ??C (98.4 ??F) Pulse: [105-123] 112 BP: (106-138)/(56-94) 132/81 Resp: [12-36] 28 SpO2: [91 %-98 %] 93 % Arterial Line BP: (98-133)/(39-56) 98/47 FiO2 (%): [40 %] 40 % I/O this shift: In: 516.7 [I.V.:116.7; Blood:350; IV Piggyback:50] Out: 837 [Other:837] Physical Exam Physical Exam General: older than stated age, comfortable appearing, no acute distress HENT: Normocephalic, atraumatic Eyes: Anicteric, no conjunctival erythema, no proptosis or lid edema CV: Warm and well perfused throughout, no edema Pulm: Normal work of breathing, not cyanotic MSK: Normal muscle bulk, moves all 4 extremities Skin: No rashes on exposed skin Psych: Normal mood and affect Data Medications, labs, imaging, and diagnostics independently reviewed in Epic and commented on below. Lab Results Component Value Date TSH 0.80 03/21/2017 Lab Results Component Value Date CHOL 149 06/04/2022 TRIG 226 (H) 06/18/2022 HDL 34 (L) 06/04/2022 LDLCALC 82 06/04/2022 Lab Results Component Value Date 25HYDROVITD 22.7 (L) 03/22/2017 Lab Results Component Value Date HGBA1C 7.8 (H) 06/04/2022 Assessment & Plan 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, with prison use of insulin, complicated by ESRD on PD, CAD s/p PCI, CHF - HbA1c 7.4% - Uses Omnipod and Dexcom G6 at home, not currently on this- doesn't have the supplies -On significantly higher basal rates on pump at night due to peritoneal dialysis -home settings: Basal rate 0330 >>1.7 0800 >> 0.8 2000 >> 5.8 ICR1:6.5 ISF1:25 MSR568 TIA 4 High insulin requirements in setting acute illness, prior pressor requirements Recommendations: - Continue Lantus 33 units qAM - Continue Humalog 6 units Q4hrs while getting tube feeds; hold if tube feeds are held - If he starts on a diet, recommend changing to Humalog 4U post meals (if he takes at least 25g of carbs or eats at least 50% of meal) - Continue resistant NPO correction scale q4h for now; if starting diet please changes to resistantCS TID, HS for patients on diet - HOLDING NPH 15 units at the beginning of PD session (was previously on this) - POC glucoses q4hrs Discharge recommendations: - TBD # ESRD on PD - Serum Cr = 4.65 -> 5.16 - CKD and ESRD are independent risk factors for hypoglycemia - May need NPH at PD start once transitioned ## Discharge Planning - Follow-up with home green house manager -- Carol Sanchez MD Endocrinology, Metabolism, & Lipid Research Contact Info: New Consults: [phone]) General Endocrine (Non-Diabetes): [phone] (Check 'Treatment Team' assignment for Diabetes 1 vs 2 vs 3) Diabetes 1: Diabetes Fellow: [phone] Diabetes 2: Dora Delarosa, CHIEF AIRLINE RADIO OPERATOR: [phone] Diabetes 3: See Treatment Team Provider (or call Dora Delarosa, above) Diabetes After-Hours & Weekends: Diabetes Fellow * Plan of Care - Milly Cooper RN - 06/20/2022 12:41 PM CDT Rounds with MD, keycase assembler, social work, & charge nurse Medical chart reviewed for medical necessity. Report per rounds: The patient is not medically stable to discharge today. ADD: 06/27 Referrals made: TBD Support following discharge: family Transportation: Family or ambulance Patient's Identified Problem/Goal Problem: Ensure acute medical needs are met and that patient has a safe discharge plan. Goal: Secure a discharge plan that patient/family are agreeable with and ensure patient has continuum of care. Patient and family are agreeable with plan. city manager will continue to follow and assist with discharge planning as needed * Consults, Subsequent - Miriam Driver MD - 06/20/2022 12:06 PM CDT NEPHROLOGY PROCEDURE NOTE Date of Service: 06/20/2022 I saw and evaluated the patient during CRRT. Indication was ESRD. My evaluation during the procedure showed the following: Off pressors Treatment Type: Continuous veno-venous hemodiafiltration Machine Type: Prismaflex Filter Type: M150 Dialysate Fluid: NxStage 4Potassium/2.5Calcium Pre-Pump Replacement Fluid: NxStage 4Potassium/2.5Calcium Flow Rates Blood Flow Rate (mL/min): 300 mL/min Pre-Blood Pump Rate (mL/hr): 0 mL/hr Dialysate Flow Rate (mL/hr): 1400 mL/hr Pre-Pump Replacement Rate (mL/hr): 1400 mL/hr Post-Pump Replacement Rate (mL/hr): 0 mL/hr Heparin Syringe Rate (unit/hr): 1100 unit/hr Patient Fluid Removal Set Rate (mL/hr): 0 mL/hr Pressures Access Pressure (mmHg): -143 mmHg Filter Pressure (mmHg): 433 mmHg Effluent Pressure (mmHg): 203 mmHg Return Pressure (mmHg): 234 mmHg Trans-Membrane Pressure (mmHg): 116 mmHg Delta P (mmHg): 154 mmHg Off Reason: Clogged/clotted Temp: [36.4 ??C (97.5 ??F)-37.2 ??C (99 ??F)] (P) 36.9 ??C (98.4 ??F) Pulse: [105-133] 122 BP: (103-138)/(54-94) 126/58 Resp: [12-36] 19 SpO2: [91 %-100 %] 94 % Arterial Line BP: (87-146)/(35-56) 98/47 FiO2 (%): [40 %] 40 % Vascular Access Exam: Primary Access: temporary catheter Other findings: I/O last 2 completed shifts: In: 1523.1 [I.V.:1068.1; Blood:325; NG/GT:30; IV Piggyback:100] Out: 2775 [Other:2815] I have reviewed current medications and the following labs. aspirin, 81 mg, feeding tube, Daily atorvastatin, 80 mg, feeding tube, Daily calcitRIOL, 0.25 mcg, feeding tube, Daily [Held by Provider] calcium acetate(phosphat bind), 667 mg, oral, QID chlorhexidine, 15 mL, mouth/throat, BID clopidogreL, 75 mg, feeding tube, Daily ezetimibe, 10 mg, feeding tube, Daily gentamicin, , topical, Daily insulin glargine, 33 Units, subcutaneous, QAM insulin lispro, 0-10 Units, subcutaneous, Q4H ASHLEY insulin lispro, 6 Units, subcutaneous, Q4H pantoprazole, 40 mg, intravenous, BID polyvinyl alcohol-povidone, 1 drop, each eye, QID amiodarone, 0.5 mg/min, Last Rate: 0.5 mg/min (06/20/22 1200) [Held by Provider] heparin, 0-33 Units/kg/hr, Last Rate: Stopped (06/20/22 0014) norepinephrine, 0-2 mcg/kg/min, Last Rate: Stopped (06/20/22 0130) NxStage 4-potassium/2.5-calcium, 1,400 mL/hr, Last Rate: 1,400 mL/hr (06/20/22 1058) NxStage 4-potassium/2.5-calcium, 1,400 mL/hr, Last Rate: 1,400 mL/hr (06/20/22 0212) sodium chloride 0.9%, 10 mL/hr, Last Rate: 10 mL/hr (06/12/22 0834) sodium chloride 0.9%, 1,000 mL sodium chloride 0.9%, 3-12 mL/hr sodium chloride 0.9%, 3-12 mL/hr, Last Rate: 3 mL/hr (06/20/22 0100) vasopressin in 5% dextrose, Recent Labs Lab Units 06/20/22 0824 06/20/22 0025 06/19/225 06/19/22205306/19/22 0909 WBC K/cumm 8.3 -- -- 8.4 4.9 HEMOGLOBIN g/dL 6.6* 6.2* 6.2* 6.8* 9.9* PLATELETS K/cumm 271 -- -- 255 237 Recent Labs Lab Units 06/20/22 0824 06/19/22205306/19/22 0909 06/18/22 2250 06/18/22 0852 06/17/22 2117 06/17/22 0802 06/16/22 20506/14/22 0816 06/13/22 2249 SODIUM mmol/L 140 140 137 140 143 142 < > 140 < > -- POTASSIUM PLASMA mmol/L 4.9 4.8 4.6 4.3 4.0 3.2* < > 4.0 < > -- CHLORIDE mmol/L 104 102 101 103 104 104 < > 104 < > -- CO2 mmol/L 25 25 23 22 23 23 < > 25 < > -- BUN SERUM mg/dL 25 32* 35* 35* 40* 41* < > 36* < > -- CREATININE mg/dL 3.43* 4.27* 5.02* 5.01* 6.24* 5.65* < > 4.65* < > -- ALBUMIN g/dL 2.8* 2.9* 2.9* 2.8* 3.3* 2.7* < > 2.7* < > -- CALCIUM mg/dL 8.4* 8.3* 8.4* 8.7 9.5 9.3 < > 9.3 < > -- MAGNESIUM mg/dL 2.7* 2.7* 2.9* 3.1* 2.9* 2.9* < > 3.0* < > -- PHOSPHORUS PLASMA mg/dL -- -- -- 5.2* -- 5.8* -- 5.4* < > -- VANCOMYCIN RM mcg/mL -- -- -- 38.4 51.8 -- -- -- -- -- VANCOMYCIN TR mcg/mL -- -- -- -- -- -- -- -- -- 23.3* < > = values in this interval not displayed. Lab Results Component Value Date CALCIUM 8.4 (L) 06/20/2022 CAION 4.62 06/07/2022 PHOS 5.2 (H) 06/18/2022 Lab Results Component Value Date IRON 50 06/07/2022 TIBC 130 (L) 06/07/2022 TRANSFERSAT 38 06/07/2022 FERRITIN 2,062 (H) 06/07/2022 Continue CVVHDF CRRT Prescription: CVVHDF Dialysate Fluid Rate 4K/2.5 Ca 1400 cc/hour Replacement Fluid Rate 4K/2.5 Ca 1400 cc/hour Fluid Removal net negative as tolerated Will discuss with the primary team transitioning to SLED for volume control, then eventually back to PD Miriam Driver MD Biology Department Chair Division of Nephrology * Consults, Subsequent - Sandrine Myers MD - 06/20/2022 6:56 AM CDT Pulmonary Daily Progress Subjective Chief complaint of acute hypoxemic respiratory failure. Interval History: Extubated yesterday to nasal cannula, since weaned off. States he feels tired, but that his breathing does not feel labored. Reports a prior diagnosis of EBN with a home CPAP machine and that his daughter can bring this in. Denies wheezing, cough or other new/concerning respiratory symptoms. Scheduled Meds:aspirin, 81 mg, feeding tube, Daily atorvastatin, 80 mg, feeding tube, Daily calcitRIOL, 0.25 mcg, feeding tube, Daily [Held by Provider] calcium acetate(phosphat bind), 667 mg, oral, QID chlorhexidine, 15 mL, mouth/throat, BID clopidogreL, 75 mg, feeding tube, Daily docusate, 100 mg, feeding tube, Daily ezetimibe, 10 mg, feeding tube, Daily gentamicin, , topical, Daily insulin glargine, 33 Units, subcutaneous, QAM insulin lispro, 0-10 Units, subcutaneous, Q4H ASHLEY insulin lispro, 6 Units, subcutaneous, Q4H pantoprazole, 40 mg, intravenous, BID polyethylene glycol, 17 g, feeding tube, BID polyvinyl alcohol-povidone, 1 drop, each eye, QID senna, 8.8 mg, oral, Nightly Continuous Infusions:amiodarone, 0.5 mg/min, Last Rate: 0.5 mg/min (06/20/22 0600) [Held by Provider] heparin, 0-33 Units/kg/hr, Last Rate: Stopped (06/20/22 0014) norepinephrine, 0-2 mcg/kg/min, Last Rate: Stopped (06/20/22 0130) NxStage 4-potassium/2.5-calcium, 1,400 mL/hr, Last Rate: 1,400 mL/hr (06/20/22 0211) NxStage 4-potassium/2.5-calcium, 1,400 mL/hr, Last Rate: 1,400 mL/hr (06/20/22 0212) sodium chloride 0.9%, 10 mL/hr, Last Rate: 10 mL/hr (06/12/22 0834) sodium chloride 0.9%, 1,000 mL sodium chloride 0.9%, 3-12 mL/hr sodium chloride 0.9%, 3-12 mL/hr, Last Rate: 3 mL/hr (06/20/22 0100) vasopressin in 5% dextrose, PRN Meds:. acetaminophen albuterol HFA bisacodyL bisacodyl EC dextrose 5% water dextrose 5% water fluticasone propionate Dialysis Access Care AND heparin heparin OR heparin lidocaine midazolam ondansetron ODT OR ondansetron phenoL polyethylene glycol ramelteon sodium chloride 0.9% I/O last 2 completed shifts: In: 188 [I.V.:1431; NG/GT:30; IV Piggyback:420] Out: 2222 [Other:2268] Objective Vitals: Vitals: 06/20/22 0600 BP: Pulse: 110 Resp: 19 Temp: SpO2: 97% Physical Exam: Constitutional: No acute distress, lying in bed Head: NCAT, EOMI Cardiac: Regular rate, regular rhythm. No murmurs Resp: Clear to auscultation bilaterally. No wheezes, rhonchi, or rales. Normal work of breathing, no conversational dyspnea Abdomen: Soft. Obese, non distended Extremities: +Peripheral edema, no cyanosis Data: I have reviewed labs from last 24 hours. Pertinent findings include: Hgb 6.2, no leukocytosis, yesterday evening ABG 7.45/32/75, BCx negative 06/17, pneumonia PCR pending Recent Results (from the past 24 hour(s)) CBC with auto differential Collection Time: 06/19/22 8:54 PM Result Value Ref Range WBC 8.4 3.8 - 9.9 K/cumm Hgb 6.8 (L) 13.0 - 17.5 g/dL Hct 20.5 (L) 38.9 - 50.3 % Plt 255 150 - 400 K/cumm MPV 9.6 9.1 - 12.3 fL RBC 2.15 (L) 4.30 - 5.80 M/cumm MCV 95.3 81.3 - 96.4 fL MCH 31.6 27.1 - 33.3 pg MCHC 33.2 32.3 - 35.7 g/dL RDW CV 16.5 (H) 11.1 - 14.9 % RDW SD 55.8 (H) 35.7 - 48.1 fL NRBC abs 0.03 (H) 0.00 - 0.01 K/cumm Comprehensive metabolic panel Collection Time: 06/19/22 8:54 PM Result Value Ref Range Sodium 140 135 - 145 mmol/L Potassium, pl 4.8 3.3 - 4.9 mmol/L Chloride 102 97 - 110 mmol/L CO2 25 22 - 32 mmol/L Anion gap 13 2 - 15 mmol/L BUN 32 (H) 8 - 25 mg/dL Creatinine 4.27 (H) 0.80 - 1.30 mg/dL Glucose 148 70 - 199 mg/dL Calcium 8.3 (L) 8.5 - 10.3 mg/dL Bilirubin, total 0.5 0.1 - 1.2 mg/dL Protein, pl 6.1 (L) 6.5 - 8.5 g/dL Albumin 2.9 (L) 3.5 - 5.0 g/dL Alk phos 150 (H) 40 - 130 Units/L ALT 32 7 - 55 Units/L AST 61 (H) 10 - 50 Units/L Magnesium Collection Time: 06/19/22 8:54 PM Result Value Ref Range Magnesium 2.7 (H) 1.4 - 2.5 mg/dL Beta-hydroxybutyrate Collection Time: 06/19/22 8:54 PM Result Value Ref Range Beta-Hydroxybutyrate 0.7 (H) 0.0 - 0.5 mmol/L Lactate Collection Time: 06/19/22 8:54 PM Result Value Ref Range Lactate 1.3 0.7 - 2.0 mmol/L aPTT Collection Time: 06/19/22 8:54 PM Result Value Ref Range aPTT 37 27 - 37 sec Blood gas, arterial Collection Time: 06/19/22 8:54 PM Result Value Ref Range pH, Art 7.45 7.35 - 7.45 PCO2, Arterial 32 (L) 35 - 45 mmHg PO2, Arterial 75 (L) 83 - 108 mmHg HCO3 Art (Calculated) 23 20 - 30 mmol/L BE, art -1 mmol/L O2 Sat Art (Measured) 95 90 - 95 % Differential, auto Collection Time: 06/19/22 8:54 PM Result Value Ref Range Neutrophil abs 5.0 1.7 - 6.5 K/cumm Imm gran abs 0.1 0.0 - 0.1 K/cumm Lymphocyte abs 2.1 0.8 - 3.3 K/cumm Monocyte abs 1.2 (H) 0.2 - 0.8 K/cumm Eosinophil abs 0.1 0.0 - 0.5 K/cumm Basophil abs 0.1 0.0 - 0.1 K/cumm Neutrophil pct 59.1 % Imm gran pct 0.7 % Lymphocyte pct 24.4 % Monocyte pct 13.7 % Eosinophil pct 1.3 % Basophil pct 0.8 % eGFR Collection Time: 06/19/22 8:54 PM Result Value Ref Range eGFR 16 (L) 90 - 130 mL/min/1.73 m2 POCT glucose Collection Time: 06/19/22 8:55 PM Result Value Ref Range Glucose, POC 161 70 - 199 mg/dL Hemoglobin and hematocrit Collection Time: 06/19/22 11:25 PM Result Value Ref Range Hgb 6.2 (Critical) 13.0 - 17.5 g/dL Hct 19.5 (L) 38.9 - 50.3 % POCT glucose Collection Time: 06/20/22 12:01 AM Result Value Ref Range Glucose, POC 206 (H) 70 - 199 mg/dL Prepare RBC: 1 Units Collection Time: 06/20/22 12:15 AM Result Value Ref Range Product code C6691M17 Unit Number [id number] Product Blood Type APOS Dispense Status ISSUED Type and screen Collection Time: 06/20/22 12:23 AM Result Value Ref Range Maribel, indirect Negative ABO Rh A Positive Hemoglobin and hematocrit Collection Time: 06/20/22 12:25 AM Result Value Ref Range Hgb 6.2 (Critical) 13.0 - 17.5 g/dL Hct 19.8 (L) 38.9 - 50.3 % POCT glucose Collection Time: 06/20/22 4:57 AM Result Value Ref Range Glucose, POC 174 70 - 199 mg/dL POCT glucose Collection Time: 06/20/22 8:21 AM Result Value Ref Range Glucose, POC 152 70 - 199 mg/dL Comprehensive metabolic panel Collection Time: 06/20/22 8:24 AM Result Value Ref Range Sodium 140 135 - 145 mmol/L Potassium, pl 4.9 3.3 - 4.9 mmol/L Chloride 104 97 - 110 mmol/L CO2 25 22 - 32 mmol/L Anion gap 11 2 - 15 mmol/L BUN 25 8 - 25 mg/dL Creatinine 3.43 (H) 0.80 - 1.30 mg/dL Glucose 144 70 - 199 mg/dL Calcium 8.4 (L) 8.5 - 10.3 mg/dL Bilirubin, total 0.6 0.1 - 1.2 mg/dL Protein, pl 6.2 (L) 6.5 - 8.5 g/dL Albumin 2.8 (L) 3.5 - 5.0 g/dL Alk phos 143 (H) 40 - 130 Units/L ALT 35 7 - 55 Units/L AST 79 (H) 10 - 50 Units/L Magnesium Collection Time: 06/20/22 8:24 AM Result Value Ref Range Magnesium 2.7 (H) 1.4 - 2.5 mg/dL CBC with auto differential Collection Time: 06/20/22 8:24 AM Result Value Ref Range WBC 8.3 3.8 - 9.9 K/cumm Hgb 6.6 (L) 13.0 - 17.5 g/dL Hct 20.7 (L) 38.9 - 50.3 % Plt 271 150 - 400 K/cumm MPV 9.6 9.1 - 12.3 fL RBC 2.12 (L) 4.30 - 5.80 M/cumm MCV 97.6 (H) 81.3 - 96.4 fL MCH 31.1 27.1 - 33.3 pg MCHC 31.9 (L) 32.3 - 35.7 g/dL RDW CV 17.4 (H) 11.1 - 14.9 % RDW SD 59.6 (H) 35.7 - 48.1 fL NRBC abs 0.00 0.00 - 0.01 K/cumm Differential, auto Collection Time: 06/20/22 8:24 AM Result Value Ref Range Neutrophil abs 5.1 1.7 - 6.5 K/cumm Imm gran abs 0.1 0.0 - 0.1 K/cumm Lymphocyte abs 1.6 0.8 - 3.3 K/cumm Monocyte abs 1.3 (H) 0.2 - 0.8 K/cumm Eosinophil abs 0.1 0.0 - 0.5 K/cumm Basophil abs 0.1 0.0 - 0.1 K/cumm Neutrophil pct 62.3 % Imm gran pct 0.7 % Lymphocyte pct 19.9 % Monocyte pct 15.9 % Eosinophil pct 0.6 % Basophil pct 0.6 % eGFR Collection Time: 06/20/22 8:24 AM Result Value Ref Range eGFR 21 (L) 90 - 130 mL/min/1.73 m2 Prepare RBC: 1 Units Collection Time: 06/20/22 9:35 AM Result Value Ref Range Product code [id number] Unit Number [id number] Product Blood Type APOS Dispense Status RETURNED CBC with auto differential Collection Time: 06/20/22 3:22 PM Result Value Ref Range WBC 7.2 3.8 - 9.9 K/cumm Hgb 8.0 (L) 13.0 - 17.5 g/dL Hct 24.5 (L) 38.9 - 50.3 % Plt 207 150 - 400 K/cumm MPV 9.8 9.1 - 12.3 fL RBC 2.67 (L) 4.30 - 5.80 M/cumm MCV 91.8 81.3 - 96.4 fL MCH 30.0 27.1 - 33.3 pg MCHC 32.7 32.3 - 35.7 g/dL RDW CV 19.9 (H) 11.1 - 14.9 % RDW SD 63.6 (H) 35.7 - 48.1 fL NRBC abs 0.03 (H) 0.00 - 0.01 K/cumm Differential, auto Collection Time: 06/20/22 3:22 PM Result Value Ref Range Neutrophil abs 4.7 1.7 - 6.5 K/cumm Imm gran abs 0.1 0.0 - 0.1 K/cumm Lymphocyte abs 1.4 0.8 - 3.3 K/cumm Monocyte abs 1.0 (H) 0.2 - 0.8 K/cumm Eosinophil abs 0.0 0.0 - 0.5 K/cumm Basophil abs 0.1 0.0 - 0.1 K/cumm Neutrophil pct 64.5 % Imm gran pct 0.7 % Lymphocyte pct 19.4 % Monocyte pct 14.1 % Eosinophil pct 0.6 % Basophil pct 0.7 % POCT glucose Collection Time: 06/20/22 3:53 PM Result Value Ref Range Glucose, POC 124 70 - 199 mg/dL I have reviewed radiology images from last 24 hours: Pertinent findings include: RUQUS with sludge w/o wall thickening to suggest cholecystitis Assessment/Plan Acute hypoxemic respiratory failure (HCC) Assessment & Plan Mr. Garvin is a 51 y/o M with medical history most significant for CAD, DM1, ESRD on PD, initially presenting for complex PCI, found to have cholecystitis, now in CCU with cardiogenic shock. Pulmonary is consulted for hypoxemic respiratory failure. Problem List: - Acute hypoxemic respiratory failure, [...] --Continue to keep as dry as possible Pulmonary will sign off and patient does not require specific follow up. Please call manager field investigations pulmonary consult fellow with additional questions or concerns. Sandrine Myers MD Pulmonary and Critical Care, PGY-4 Cosigned by Stanton Gonzales MD at 06/20/2022 9:11 PM CDT Associated attestation - Stanton Gonzales MD - 06/20/2022 9:11 PM CDT I have seen and examined the patient on 06/20/22. I agree with the findings and plan of care as documented in the resident's/fellow's note. * Consults, Subsequent - Davion Marquez MD - 06/19/2022 3:34 PM CDT ASSESSMENT AND RECOMMENDATIONS Continue CVVHD 1.4L/hr + 1.4 L/hr NEPHROLOGY PROCEDURE NOTE Date of Service: 06/19/2022 I saw and evaluated the patient during CRRT. Indication was ESRD. My evaluation during the procedure showed the following: On levo Anuric Treatment Type: Continuous veno-venous hemodiafiltration Machine Type: Prismaflex Filter Type: M150 Dialysate Fluid: NxStage 4Potassium/2.5Calcium Pre-Pump Replacement Fluid: NxStage 4Potassium/2.5Calcium Flow Rates Blood Flow Rate (mL/min): 250 mL/min Pre-Blood Pump Rate (mL/hr): 0 mL/hr Dialysate Flow Rate (mL/hr): 1400 mL/hr Pre-Pump Replacement Rate (mL/hr): 1400 mL/hr Post-Pump Replacement Rate (mL/hr): 0 mL/hr Heparin Syringe Rate (unit/hr): 1100 unit/hr Patient Fluid Removal Set Rate (mL/hr): 150 mL/hr Pressures Access Pressure (mmHg): -111 mmHg Filter Pressure (mmHg): 292 mmHg Effluent Pressure (mmHg): -4 mmHg Return Pressure (mmHg): 86 mmHg Trans-Membrane Pressure (mmHg): 161 mmHg Delta P (mmHg): 204 mmHg Off Reason: Clogged/clotted Temp: [35.8 ??C (96.4 ??F)-38.8 ??C (101.8 ??F)] 37.2 ??C (99 ??F) Pulse: [89-130] 129 Resp: [16-27] 22 SpO2: [93 %-100 %] 98 % Arterial Line BP: (80-151)/(35-105) 114/44 FiO2 (%): [40 %] 40 % Vascular Access Exam: Primary Access: temporary catheter Other findings: I/O last 2 completed shifts: In: 74934.4 [I.V.:1014.4; Other:20055; NG/GT:190; IV Piggyback:420] Out: 94195 [Other:32558] I have reviewed current medications and the following labs. aspirin, 81 mg, feeding tube, Daily atorvastatin, 80 mg, feeding tube, Daily calcitRIOL, 0.25 mcg, feeding tube, Daily [Held by Provider] calcium acetate(phosphat bind), 667 mg, oral, QID chlorhexidine, 15 mL, mouth/throat, BID clopidogreL, 75 mg, feeding tube, Daily docusate, 100 mg, feeding tube, Daily ezetimibe, 10 mg, feeding tube, Daily gentamicin, , topical, Daily insulin glargine, 33 Units, subcutaneous, QAM insulin lispro, 0-10 Units, subcutaneous, Q4H ASHLEY insulin lispro, 6 Units, subcutaneous, Q4H magnesium sulfate, 2 g, intravenous, Once pantoprazole, 40 mg, intravenous, BID polyethylene glycol, 17 g, feeding tube, BID polyvinyl alcohol-povidone, 1 drop, each eye, QID senna, 8.8 mg, oral, Nightly amiodarone, 150 mg amiodarone, 0.5 mg/min, Last Rate: 0.5 mg/min (06/19/22 1500) dexmedeTOMIDine, 0-1.5 mcg/kg/hr, Last Rate: Stopped (06/19/22 1200) fentaNYL, 0-400 mcg/hr, Last Rate: Stopped (06/19/22 1055) [Held by Provider] heparin, 0-33 Units/kg/hr, Last Rate: Stopped (06/18/22 1400) midazolam, 0-12 mg/hr, Last Rate: Stopped (06/18/22 0749) norepinephrine, 0-2 mcg/kg/min (Dosing Weight), Last Rate: 0.08 mcg/kg/min (06/19/22 1500) NxStage 4-potassium/2.5-calcium, 1,400 mL/hr, Last Rate: 1,400 mL/hr (06/19/22 1225) NxStage 4-potassium/2.5-calcium, 1,400 mL/hr, Last Rate: 1,400 mL/hr (06/19/22 1223) propofol, 0-50 mcg/kg/min, Last Rate: Stopped (06/15/22 1018) sodium chloride 0.9%, 10 mL/hr, Last Rate: 10 mL/hr (06/12/22 0834) sodium chloride 0.9%, 1,000 mL sodium chloride 0.9%, 3-12 mL/hr sodium chloride 0.9%, 3-12 mL/hr, Last Rate: 3 mL/hr (06/19/22 1500) Recent Labs Lab Units 06/19/22 0906/18/22224906/18/22 0852 WBC K/cumm 4.9 8.4 8.9 HEMOGLOBIN g/dL 9.9* 7.5* 8.8* PLATELETS K/cumm 237 313 283 Recent Labs Lab Units 06/19/22 0909 06/18/22224906/18/2252 06/17/22211606/17/22 0806/16/22205106/14/22 0816 06/13/22 2249 SODIUM mmol/L 137 140 143 142 < > 140 < > -- POTASSIUM PLASMA mmol/L 4.6 4.3 4.0 3.2* < > 4.0 < > -- CHLORIDE mmol/L 101 103 104 104 < > 104 < > -- CO2 mmol/L 23 22 23 23 < > 25 < > -- BUN SERUM mg/dL 35* 35* 40* 41* < > 36* < > -- CREATININE mg/dL 5.02* 5.01* 6.24* 5.65* < > 4.65* < > -- ALBUMIN g/dL 2.9* 2.8* 3.3* 2.7* < > 2.7* < > -- CALCIUM mg/dL 8.4* 8.7 9.5 9.3 < > 9.3 < > -- MAGNESIUM mg/dL 2.9* 3.1* 2.9* 2.9* < > 3.0* < > -- PHOSPHORUS PLASMA mg/dL -- 5.2* -- 5.8* -- 5.4* < > -- VANCOMYCIN RM mcg/mL -- 38.4 51.8 -- -- -- -- -- VANCOMYCIN TR mcg/mL -- -- -- -- -- -- -- 23.3* < > = values in this interval not displayed. Lab Results Component Value Date CALCIUM 8.4 (L) 06/19/2022 CAION 4.62 06/07/2022 PHOS 5.2 (H) 06/18/2022 Lab Results Component Value Date IRON 50 06/07/2022 TIBC 130 (L) 06/07/2022 TRANSFERSAT 38 06/07/2022 FERRITIN 2,062 (H) 06/07/2022 Davion Esquivel MD Division of Nephrology * Subjective & Objective - Bobby Mary MD - 06/19/2022 2:03 PM CDT Pulmonary Daily Progress Subjective Interval History: CVVHD resumed and was negative ~3L yesterday. More alert this AM on same sedation. PSV trial ongoing and ABG reassuring after 2 hours of PSV. Objective Vitals: 24hr Min/Max: Temp Min: 35.8 ??C (96.4 ??F) Max: 38.8 ??C (101.8 ??F) Pulse Min: 82 Max: 130 Resp Min: 16 Max: 27 SpO2 Min: 93 % Max: 99 % Most Recent : Vitals: 06/19/22 1300 BP: Pulse: 120 Resp: 24 Temp: 36.8 ??C (98.2 ??F) SpO2: 93% I/O last 2 completed shifts: In: 21990.4 [I.V.:1014.4; Other:12133; NG/GT:190; IV Piggyback:420] Out: 57418 [Other:34558] I/O this shift: In: 480.2 [I.V.:480.2] Out: 767 [Other:767] Physical Exam: Awake, following simple commands PIP upper 20s, Ve ~11 l/min Coarse = BS RRR Mild OLVIN Lab/Radiology/Diagnostic Review: Laboratory review: Lab results in the last 24 hours: Recent Results (from the past 24 hour(s)) POCT glucose Collection Time: 06/18/22 2:38 PM Result Value Ref Range Glucose, POC 264 (H) 70 - 199 mg/dL POCT glucose Collection Time: 06/18/22 4:16 PM Result Value Ref Range Glucose, POC 181 70 - 199 mg/dL POCT glucose Collection Time: 06/18/22 5:11 PM Result Value Ref Range Glucose, POC 168 70 - 199 mg/dL POCT glucose Collection Time: 06/18/22 7:51 PM Result Value Ref Range Glucose, POC 256 (H) 70 - 199 mg/dL CBC with auto differential Collection Time: 06/18/22 10:50 PM Result Value Ref Range WBC 8.4 3.8 - 9.9 K/cumm Hgb 7.5 (L) 13.0 - 17.5 g/dL Hct 23.6 (L) 38.9 - 50.3 % Plt 313 150 - 400 K/cumm MPV 9.8 9.1 - 12.3 fL RBC 2.41 (L) 4.30 - 5.80 M/cumm MCV 97.9 (H) 81.3 - 96.4 fL MCH 31.1 27.1 - 33.3 pg MCHC 31.8 (L) 32.3 - 35.7 g/dL RDW CV 16.5 (H) 11.1 - 14.9 % RDW SD 56.5 (H) 35.7 - 48.1 fL NRBC abs 0.00 0.00 - 0.01 K/cumm Comprehensive metabolic panel Collection Time: 06/18/22 10:50 PM Result Value Ref Range Sodium 140 135 - 145 mmol/L Potassium, pl 4.3 3.3 - 4.9 mmol/L Chloride 103 97 - 110 mmol/L CO2 22 22 - 32 mmol/L Anion gap 15 2 - 15 mmol/L BUN 35 (H) 8 - 25 mg/dL Creatinine 5.01 (H) 0.80 - 1.30 mg/dL Glucose 199 70 - 199 mg/dL Calcium 8.7 8.5 - 10.3 mg/dL Bilirubin, total 0.4 0.1 - 1.2 mg/dL Protein, pl 6.5 6.5 - 8.5 g/dL Albumin 2.8 (L) 3.5 - 5.0 g/dL Alk phos 163 (H) 40 - 130 Units/L ALT 34 7 - 55 Units/L AST 56 (H) 10 - 50 Units/L Magnesium Collection Time: 06/18/22 10:50 PM Result Value Ref Range Magnesium 3.1 (H) 1.4 - 2.5 mg/dL Lipase Collection Time: 06/18/22 10:50 PM Result Value Ref Range Lipase 22 10 - 99 Units/L Beta-hydroxybutyrate Collection Time: 06/18/22 10:50 PM Result Value Ref Range Beta-Hydroxybutyrate 1.3 (H) 0.0 - 0.5 mmol/L Phosphorus Collection Time: 06/18/22 10:50 PM Result Value Ref Range Phosphorus, pl 5.2 (H) 2.3 - 4.5 mg/dL Triglycerides Collection Time: 06/18/22 10:50 PM Result Value Ref Range Triglycerides 226 (H) <=149 mg/dL Lactate Collection Time: 06/18/22 10:50 PM Result Value Ref Range Lactate 1.0 0.7 - 2.0 mmol/L Differential, auto Collection Time: 06/18/22 10:50 PM Result Value Ref Range Neutrophil abs 5.0 1.7 - 6.5 K/cumm Imm gran abs 0.1 0.0 - 0.1 K/cumm Lymphocyte abs 1.7 0.8 - 3.3 K/cumm Monocyte abs 1.3 (H) 0.2 - 0.8 K/cumm Eosinophil abs 0.2 0.0 - 0.5 K/cumm Basophil abs 0.1 0.0 - 0.1 K/cumm Neutrophil pct 60.3 % Imm gran pct 0.7 % Lymphocyte pct 20.4 % Monocyte pct 16.0 % Eosinophil pct 2.0 % Basophil pct 0.6 % Vancomycin level random Collection Time: 06/18/22 10:50 PM Result Value Ref Range Vancomycin random 38.4 mcg/mL eGFR Collection Time: 06/18/22 10:50 PM Result Value Ref Range eGFR 13 (L) 90 - 130 mL/min/1.73 m2 POCT glucose Collection Time: 06/19/22 9:08 AM Result Value Ref Range Glucose, POC 217 (H) 70 - 199 mg/dL CBC with auto differential Collection Time: 06/19/22 9:09 AM Result Value Ref Range WBC 4.9 3.8 - 9.9 K/cumm Hgb 9.9 (L) 13.0 - 17.5 g/dL Hct 31.5 (L) 38.9 - 50.3 % Plt 237 150 - 400 K/cumm MPV 9.9 9.1 - 12.3 fL RBC 3.20 (L) 4.30 - 5.80 M/cumm MCV 98.4 (H) 81.3 - 96.4 fL MCH 30.9 27.1 - 33.3 pg MCHC 31.4 (L) 32.3 - 35.7 g/dL RDW CV 16.4 (H) 11.1 - 14.9 % RDW SD 57.2 (H) 35.7 - 48.1 fL NRBC abs 0.00 0.00 - 0.01 K/cumm Comprehensive metabolic panel Collection Time: 06/19/22 9:09 AM Result Value Ref Range Sodium 137 135 - 145 mmol/L Potassium, pl 4.6 3.3 - 4.9 mmol/L Chloride 101 97 - 110 mmol/L CO2 23 22 - 32 mmol/L Anion gap 13 2 - 15 mmol/L BUN 35 (H) 8 - 25 mg/dL Creatinine 5.02 (H) 0.80 - 1.30 mg/dL Glucose 205 (H) 70 - 199 mg/dL Calcium 8.4 (L) 8.5 - 10.3 mg/dL Bilirubin, total 0.4 0.1 - 1.2 mg/dL Protein, pl 6.1 (L) 6.5 - 8.5 g/dL Albumin 2.9 (L) 3.5 - 5.0 g/dL Alk phos 156 (H) 40 - 130 Units/L ALT 32 7 - 55 Units/L AST 54 (H) 10 - 50 Units/L Magnesium Collection Time: 06/19/22 9:09 AM Result Value Ref Range Magnesium 2.9 (H) 1.4 - 2.5 mg/dL Blood gas, arterial Collection Time: 06/19/22 9:09 AM Result Value Ref Range pH, Art 7.41 7.35 - 7.45 PCO2, Arterial 33 (L) 35 - 45 mmHg PO2, Arterial 87 83 - 108 mmHg HCO3 Art (Calculated) 21 20 - 30 mmol/L BE, art -4 mmol/L O2 Sat Art (Measured) 96 (H) 90 - 95 % Differential, auto Collection Time: 06/19/22 9:09 AM Result Value Ref Range Neutrophil abs 2.8 1.7 - 6.5 K/cumm Imm gran abs 0.0 0.0 - 0.1 K/cumm Lymphocyte abs 1.2 0.8 - 3.3 K/cumm Monocyte abs 0.7 0.2 - 0.8 K/cumm Eosinophil abs 0.1 0.0 - 0.5 K/cumm Basophil abs 0.1 0.0 - 0.1 K/cumm Neutrophil pct 56.1 % Imm gran pct 0.8 % Lymphocyte pct 24.9 % Monocyte pct 14.2 % Eosinophil pct 2.8 % Basophil pct 1.2 % eGFR Collection Time: 06/19/22 9:09 AM Result Value Ref Range eGFR 13 (L) 90 - 130 mL/min/1.73 m2 POCT glucose Collection Time: 06/19/22 1:22 PM Result Value Ref Range Glucose, POC 101 70 - 199 mg/dL I personally reviewed CXR and noted following: small LF but no edema/infiltrates * Plan of Care - Robert Taylor RN - 06/19/2022 1:34 PM CDT Goals: Clinical Goals for the Shift: Extubate Summary: Problem: Health Behavior: Goal: Understanding of discharge needs will improve Outcome: Progressing Problem: Lack of Knowledge: Goal: Ability to state ways to decrease the risk of falls will improve Outcome: Progressing Problem: Safety: Goal: Will remain free from falls Outcome: Progressing Goal: Will remain free from injury from falls Outcome: Progressing Goal: Will remain free from falls and injury in home environment Outcome: Progressing Problem: Lack of Knowledge: Goal: Knowledge of disease or condition and prescribed therapeutic regimen will improve Outcome: Progressing Problem: Coping: Goal: Level of anxiety will decrease Outcome: Progressing Problem: Sensory: Goal: Pain level will decrease Outcome: Progressing Problem: Lack of Knowledge: Goal: Ability to describe self-care measures that may prevent or decrease complications will improve Outcome: Progressing Goal: Knowledge of disease or condition will improve Outcome: Progressing Goal: Knowledge of the prescribed therapeutic regimen will improve Outcome: Progressing Goal: Knowledge of prevention and discharge planning will improve Outcome: Progressing Problem: Coping: Goal: Ability to adjust to condition or change in health will improve Outcome: Progressing Problem: Fluid Volume: Goal: Ability to maintain a balanced intake and output will improve Outcome: Progressing Problem: Health Behavior: Goal: Ability to identify and alter actions that are detrimental to health will improve Outcome: Progressing Goal: Ability to identify and utilize available resources and services will improve Outcome: Progressing Goal: Ability to manage health-related needs will improve Outcome: Progressing Problem: Nutritional: Goal: Maintenance of adequate nutrition will improve Outcome: Progressing Goal: Progress toward achieving an optimal weight will improve Outcome: Progressing Problem: Physical Regulation: Goal: Complications related to the disease process, condition or treatment will be avoided or minimized Outcome: Progressing Goal: Diagnostic test results will improve Outcome: Progressing Problem: Skin Integrity: Goal: Risk for impaired skin integrity will decrease Outcome: Progressing Problem: Lack of Knowledge: Goal: Ability to develop a pain control plan will improve Outcome: Progressing Goal: Ability to identify pain intensity on a pain scale and rate it consistently will improve Outcome: Progressing Goal: Ability to notify healthcare provider of pain before it becomes unmanageable or unbearable will improve Outcome: Progressing Problem: Medication: Goal: Satisfaction with pain management regimen will improve Outcome: Progressing Problem: Sensory: Goal: Ability to identify factors that increase the pain will improve Outcome: Progressing Goal: Pain level will decrease Outcome: Progressing Problem: Activity: Goal: Ability to return to normal activity level will improve Outcome: Progressing Problem: Lack of Knowledge: Goal: Knowledge of the prescribed therapeutic regimen will improve Outcome: Progressing Problem: Coping: Goal: Ability to cope will improve Outcome: Progressing Problem: Health Behavior: Goal: Identification of resources available to assist in meeting health care needs will improve Outcome: Progressing Problem: Sensory: Goal: Pain level will decrease Outcome: Progressing Problem: Cardiac: Goal: Ability to maintain an adequate cardiac output will improve Outcome: Progressing Goal: Hemodynamic stability will improve Outcome: Progressing Problem: Lack of Knowledge: Goal: Ability to state signs and symptoms to report to health care provider will improve Outcome: Progressing Goal: Knowledge of the prescribed therapeutic regimen will improve Outcome: Progressing Goal: Mental status will improve Outcome: Progressing Problem: Fluid Volume: Goal: Ability to achieve and maintain adequate urine output will improve Outcome: Progressing Problem: Respiratory: Goal: Respiratory status will improve Outcome: Progressing Problem: Lack of Knowledge: Goal: Verbalization of understanding the information provided will improve Outcome: Progressing Problem: Lack of Knowledge: Goal: Ability to develop a pain control plan will improve Outcome: Progressing Goal: Ability to identify pain intensity on a pain scale and rate it consistently will improve Outcome: Progressing Goal: Ability to notify healthcare provider of pain before it becomes unmanageable or unbearable will improve Outcome: Progressing Problem: Medication: Goal: Satisfaction with pain management regimen will improve Outcome: Progressing Problem: Sensory: Goal: Ability to identify factors that increase the pain will improve Outcome: Progressing Goal: Pain level will decrease Outcome: Progressing * Plan of Care - Yolanda Rose RRT - 06/18/2022 4:44 PM CDT CPT bid to facilitate secretions. * Consults, Subsequent - Sandrine Myers MD - 06/18/2022 4:03 PM CDT Pulmonary Daily Progress Subjective Chief complaint of hypoxemic respiratory failure. Interval History: No acute events overnight. Remains net positive on continuous PD, though with unchanged ventilator settings PEEP 8, FiO2 40%, Pplat ~20. Versed and levophed weaned off overnight. Scheduled Meds:aspirin, 81 mg, feeding tube, Daily atorvastatin, 80 mg, feeding tube, Daily calcitRIOL, 0.25 mcg, feeding tube, Daily [Held by Provider] calcium acetate(phosphat bind), 667 mg, oral, QID chlorhexidine, 15 mL, mouth/throat, BID clopidogreL, 75 mg, feeding tube, Daily docusate, 100 mg, feeding tube, Daily ezetimibe, 10 mg, feeding tube, Daily gentamicin, , topical, Daily insulin glargine, 30 Units, subcutaneous, QAM insulin lispro, 0-10 Units, subcutaneous, Q4H ASHLEY insulin lispro, 5 Units, subcutaneous, Q4H meropenem, 2,000 mg, intravenous, Q12H ASHLEY pantoprazole, 40 mg, intravenous, BID polyethylene glycol, 17 g, feeding tube, BID polyvinyl alcohol-povidone, 1 drop, each eye, QID senna, 8.8 mg, oral, Nightly Continuous Infusions:dexmedeTOMIDine, 0-1.5 mcg/kg/hr, Last Rate: 0.3 mcg/kg/hr (06/18/22 1400) fentaNYL, 0-400 mcg/hr, Last Rate: 175 mcg/hr (06/18/22 1400) [Held by Provider] heparin, 0-33 Units/kg/hr, Last Rate: Stopped (06/18/22 1400) midazolam, 0-12 mg/hr, Last Rate: Stopped (06/18/22 0749) norepinephrine, 0-2 mcg/kg/min (Dosing Weight), Last Rate: 0.02 mcg/kg/min (06/18/221399) NxStage 4-potassium/2.5-calcium, 1,400 mL/hr, Last Rate: 1,400 mL/hr (06/18/22 1518) NxStage 4-potassium/2.5-calcium, 1,400 mL/hr, Last Rate: 1,400 mL/hr (06/18/22 1517) propofol, 0-50 mcg/kg/min, Last Rate: Stopped (06/15/22 1018) sodium chloride 0.9%, 10 mL/hr, Last Rate: 10 mL/hr (06/12/22 0834) sodium chloride 0.9%, 1,000 mL sodium chloride 0.9%, 3-12 mL/hr sodium chloride 0.9%, 3-12 mL/hr, Last Rate: 3 mL/hr (06/18/22 0600) PRN Meds:. acetaminophen albuterol HFA bisacodyL bisacodyl EC dextrose OR dextrose dextrose 5% water dextrose 5% water fentaNYL fentaNYL fluticasone propionate glucagon Dialysis Access Care AND heparin heparin OR heparin lidocaine midazolam ondansetron ODT OR ondansetron phenoL polyethylene glycol ramelteon sodium chloride 0.9% I/O last 2 completed shifts: In: 53948.3 [I.V.:1388.3; Other:50725; NG/GT:90; IV Piggyback:110] Out: 08098 [Other:47706; Stool:170] Objective Vitals: Vitals: 06/18/22 1508 BP: Pulse: 86 Resp: Temp: SpO2: 95% Physical Exam: Constitutional: Intubated, sedated, responds to questions appropriately Head: ETT in place Cardiac: Regular rate, regular rhythm. No murmurs Resp: Clear to auscultation bilaterally. No wheezes, rhonchi, or rales. Vent AC/VC 500/20/40%/8, plateau pressure remains ~20 Abdomen: Soft. Obese, non distended, on PD Extremities: +Peripheral edema, no cyanosis Data: I have reviewed labs from last 24 hours. Recent Results (from the past 24 hour(s)) POCT glucose Collection Time: 06/17/22 5:11 PM Result Value Ref Range Glucose, POC 133 70 - 199 mg/dL POCT glucose Collection Time: 06/17/22 7:40 PM Result Value Ref Range Glucose, POC 118 70 - 199 mg/dL POCT glucose Collection Time: 06/17/22 8:52 PM Result Value Ref Range Glucose, POC 129 70 - 199 mg/dL CBC with auto differential Collection Time: 06/17/22 9:17 PM Result Value Ref Range WBC 7.7 3.8 - 9.9 K/cumm Hgb 6.2 (Critical) 13.0 - 17.5 g/dL Hct 19.1 (L) 38.9 - 50.3 % Plt 300 150 - 400 K/cumm MPV 10.1 9.1 - 12.3 fL RBC 1.98 (L) 4.30 - 5.80 M/cumm MCV 96.5 (H) 81.3 - 96.4 fL MCH 31.3 27.1 - 33.3 pg MCHC 32.5 32.3 - 35.7 g/dL RDW CV 15.9 (H) 11.1 - 14.9 % RDW SD 50.9 (H) 35.7 - 48.1 fL NRBC abs 0.00 0.00 - 0.01 K/cumm Lipase Collection Time: 06/17/22 9:17 PM Result Value Ref Range Lipase 22 10 - 99 Units/L Beta-hydroxybutyrate Collection Time: 06/17/22 9:17 PM Result Value Ref Range Beta-Hydroxybutyrate 0.1 0.0 - 0.5 mmol/L Phosphorus Collection Time: 06/17/22 9:17 PM Result Value Ref Range Phosphorus, pl 5.8 (H) 2.3 - 4.5 mg/dL Triglycerides Collection Time: 06/17/22 9:17 PM Result Value Ref Range Triglycerides 272 (H) <=149 mg/dL Lactate Collection Time: 06/17/22 9:17 PM Result Value Ref Range Lactate 1.3 0.7 - 2.0 mmol/L Differential, auto Collection Time: 06/17/22 9:17 PM Result Value Ref Range Neutrophil abs 4.5 1.7 - 6.5 K/cumm Imm gran abs 0.1 0.0 - 0.1 K/cumm Lymphocyte abs 1.5 0.8 - 3.3 K/cumm Monocyte abs 1.4 (H) 0.2 - 0.8 K/cumm Eosinophil abs 0.3 0.0 - 0.5 K/cumm Basophil abs 0.0 0.0 - 0.1 K/cumm Neutrophil pct 58.5 % Imm gran pct 1.0 % Lymphocyte pct 19.0 % Monocyte pct 17.6 % Eosinophil pct 3.5 % Basophil pct 0.4 % Comprehensive metabolic panel Collection Time: 06/17/22 9:17 PM Result Value Ref Range Sodium 142 135 - 145 mmol/L Potassium, pl 3.2 (L) 3.3 - 4.9 mmol/L Chloride 104 97 - 110 mmol/L CO2 23 22 - 32 mmol/L Anion gap 15 2 - 15 mmol/L BUN 41 (H) 8 - 25 mg/dL Creatinine 5.65 (H) 0.80 - 1.30 mg/dL Glucose 121 70 - 199 mg/dL Calcium 9.3 8.5 - 10.3 mg/dL Bilirubin, total 0.4 0.1 - 1.2 mg/dL Protein, pl 6.4 (L) 6.5 - 8.5 g/dL Albumin 2.7 (L) 3.5 - 5.0 g/dL Alk phos 181 (H) 40 - 130 Units/L ALT 33 7 - 55 Units/L AST 52 (H) 10 - 50 Units/L Magnesium Collection Time: 06/17/22 9:17 PM Result Value Ref Range Magnesium 2.9 (H) 1.4 - 2.5 mg/dL eGFR Collection Time: 06/17/22 9:17 PM Result Value Ref Range eGFR 11 (L) 90 - 130 mL/min/1.73 m2 Type and screen Collection Time: 06/17/22 10:31 PM Result Value Ref Range Maribel, indirect Negative ABO Rh A Positive Hemoglobin and hematocrit Collection Time: 06/17/22 10:31 PM Result Value Ref Range Hgb 7.9 (L) 13.0 - 17.5 g/dL Hct 24.0 (L) 38.9 - 50.3 % POCT glucose Collection Time: 06/17/22 10:45 PM Result Value Ref Range Glucose, POC 138 70 - 199 mg/dL POCT glucose Collection Time: 06/18/22 1:27 AM Result Value Ref Range Glucose, POC 105 70 - 199 mg/dL POCT glucose Collection Time: 06/18/22 2:25 AM Result Value Ref Range Glucose, POC 132 70 - 199 mg/dL POCT glucose Collection Time: 06/18/22 3:24 AM Result Value Ref Range Glucose, POC 179 70 - 199 mg/dL POCT glucose Collection Time: 06/18/22 4:08 AM Result Value Ref Range Glucose, POC 186 70 - 199 mg/dL POCT glucose Collection Time: 06/18/22 5:10 AM Result Value Ref Range Glucose, POC 205 (H) 70 - 199 mg/dL Blood gas, arterial Collection Time: 06/18/22 5:13 AM Result Value Ref Range pH, Art 7.33 (L) 7.35 - 7.45 PCO2, Arterial 39 35 - 45 mmHg PO2, Arterial 92 83 - 108 mmHg HCO3 Art (Calculated) 21 20 - 30 mmol/L BE, art -5 mmol/L O2 Sat Art (Measured) 96 (H) 90 - 95 % aPTT Collection Time: 06/18/22 5:13 AM Result Value Ref Range aPTT 63 (H) 27 - 37 sec POCT glucose Collection Time: 06/18/22 6:11 AM Result Value Ref Range Glucose, POC 164 70 - 199 mg/dL POCT glucose Collection Time: 06/18/22 6:53 AM Result Value Ref Range Glucose, POC 145 70 - 199 mg/dL POCT glucose Collection Time: 06/18/22 8:49 AM Result Value Ref Range Glucose, POC 109 70 - 199 mg/dL CBC with auto differential Collection Time: 06/18/22 8:52 AM Result Value Ref Range WBC 8.9 3.8 - 9.9 K/cumm Hgb 8.8 (L) 13.0 - 17.5 g/dL Hct 27.1 (L) 38.9 - 50.3 % Plt 283 150 - 400 K/cumm MPV 9.7 9.1 - 12.3 fL RBC 2.81 (L) 4.30 - 5.80 M/cumm MCV 96.4 81.3 - 96.4 fL MCH 31.3 27.1 - 33.3 pg MCHC 32.5 32.3 - 35.7 g/dL RDW CV 16.2 (H) 11.1 - 14.9 % RDW SD 54.0 (H) 35.7 - 48.1 fL NRBC abs 0.00 0.00 - 0.01 K/cumm Comprehensive metabolic panel Collection Time: 06/18/22 8:52 AM Result Value Ref Range Sodium 143 135 - 145 mmol/L Potassium, pl 4.0 3.3 - 4.9 mmol/L Chloride 104 97 - 110 mmol/L CO2 23 22 - 32 mmol/L Anion gap 16 (H) 2 - 15 mmol/L BUN 40 (H) 8 - 25 mg/dL Creatinine 6.24 (H) 0.80 - 1.30 mg/dL Glucose 116 70 - 199 mg/dL Calcium 9.5 8.5 - 10.3 mg/dL Bilirubin, total 0.4 0.1 - 1.2 mg/dL Protein, pl 7.4 6.5 - 8.5 g/dL Albumin 3.3 (L) 3.5 - 5.0 g/dL Alk phos 197 (H) 40 - 130 Units/L ALT 36 7 - 55 Units/L AST 60 (H) 10 - 50 Units/L Magnesium Collection Time: 06/18/22 8:52 AM Result Value Ref Range Magnesium 2.9 (H) 1.4 - 2.5 mg/dL Differential, auto Collection Time: 06/18/22 8:52 AM Result Value Ref Range Neutrophil abs 5.2 1.7 - 6.5 K/cumm Imm gran abs 0.1 0.0 - 0.1 K/cumm Lymphocyte abs 1.8 0.8 - 3.3 K/cumm Monocyte abs 1.6 (H) 0.2 - 0.8 K/cumm Eosinophil abs 0.2 0.0 - 0.5 K/cumm Basophil abs 0.1 0.0 - 0.1 K/cumm Neutrophil pct 58.4 % Imm gran pct 1.0 % Lymphocyte pct 19.8 % Monocyte pct 17.5 % Eosinophil pct 2.6 % Basophil pct 0.7 % Vancomycin level random Collection Time: 06/18/22 8:52 AM Result Value Ref Range Vancomycin random 51.8 mcg/mL eGFR Collection Time: 06/18/22 8:52 AM Result Value Ref Range eGFR 10 (L) 90 - 130 mL/min/1.73 m2 POCT glucose Collection Time: 06/18/22 10:13 AM Result Value Ref Range Glucose, POC 83 70 - 199 mg/dL Blood gas, arterial Collection Time: 06/18/22 10:14 AM Result Value Ref Range pH, Art 7.36 7.35 - 7.45 PCO2, Arterial 37 35 - 45 mmHg PO2, Arterial 74 (L) 83 - 108 mmHg HCO3 Art (Calculated) 21 20 - 30 mmol/L BE, art -4 mmol/L O2 Sat Art (Measured) 94 90 - 95 % POCT glucose Collection Time: 06/18/22 11:34 AM Result Value Ref Range Glucose, POC 170 70 - 199 mg/dL Beta-hydroxybutyrate Collection Time: 06/18/22 1:32 PM Result Value Ref Range Beta-Hydroxybutyrate 0.9 (H) 0.0 - 0.5 mmol/L POCT glucose Collection Time: 06/18/22 1:34 PM Result Value Ref Range Glucose, POC 376 (H) 70 - 199 mg/dL POCT glucose Collection Time: 06/18/22 2:38 PM Result Value Ref Range Glucose, POC 264 (H) 70 - 199 mg/dL I have reviewed radiology images from last 24 hours: Pertinent findings include: Chest x-ray this AM 06/18/22 largely unchanged with small lung volumes and bibasilar atelectasis Assessment/Plan Acute hypoxemic respiratory failure (HCC) Assessment & Plan Mr. Garvin is a 51 y/o M with medical history most significant for CAD, DM1, ESRD on PD, initially presenting for complex PCI, found to have cholecystitis, now in CCU with cardiogenic shock. Pulmonary is consulted for hypoxemic respiratory failure. Problem List: - Acute hypoxemic respiratory failure, secondary to cardiogenic pulmonary edema, atelectasis - Cardiogenic shock, NSTEMI s/p complex PCI, impella - BEN on home CPAP - Acute cholecystitis, meropenem/vancomycin - ESRD on home PD Difficulty with PSV trials thus far due to reported agitation as well as tachypnea, which is likelycomplicated by need for PD following clotting of [...] extubation directly to BiPAP once optimized. Recommendations: --Consider replacement of dialysis line and re-initiation of HD given difficult respiratory mechanics and volume removal with PD in the setting of obesity --Consider trial of PSV/extubation on low-dose fentanyl and precedex if mental status appropriate --Would extubate directly to BiPAP given BEN and obesity --Continue IPV to assist with mucous clearance --Continue lung protective ventilation keeping plat pressures < 30, PEEP 8 --Continue antibiotics per primary team Pulmonary will continue to follow. Please call manager field investigations pulmonary consult fellow with additional questions or concerns. Sandrine Myers MD Pulmonary and Critical Care, PGY-4 Cosigned by Bobby Mary MD at 06/18/2022 11:20 PM CDT Associated attestation - Bobby Mary MD - 06/18/2022 11:20 PM CDT I have seen and examined the patient on 06/18/22. I agree with the findings and plan of care as documented in the resident's/fellow's note. * Plan of Care - Porsche Vallejo RN - 06/18/2022 2:28 PM CDT Goals: Clinical Goals for the Shift: PSV for exercise; Trialysis line placement Summary: Problem: Health Behavior: Goal: Understanding of discharge needs will improve Outcome: Progressing Problem: Lack of Knowledge: Goal: Ability to state ways to decrease the risk of falls will improve Outcome: Progressing Problem: Safety: Goal: Will remain free from falls Outcome: Progressing Goal: Will remain free from injury from falls Outcome: Progressing Goal: Will remain free from falls and injury in home environment Outcome: Progressing Problem: Lack of Knowledge: Goal: Knowledge of disease or condition and prescribed therapeutic regimen will improve Outcome: Progressing Problem: Coping: Goal: Level of anxiety will decrease Outcome: Progressing Problem: Sensory: Goal: Pain level will decrease Outcome: Progressing Problem: Lack of Knowledge: Goal: Ability to describe self-care measures that may prevent or decrease complications will improve Outcome: Progressing Goal: Knowledge of disease or condition will improve Outcome: Progressing Goal: Knowledge of the prescribed therapeutic regimen will improve Outcome: Progressing Goal: Knowledge of prevention and discharge planning will improve Outcome: Progressing Problem: Coping: Goal: Ability to adjust to condition or change in health will improve Outcome: Progressing Problem: Fluid Volume: Goal: Ability to maintain a balanced intake and output will improve Outcome: Progressing Problem: Health Behavior: Goal: Ability to identify and alter actions that are detrimental to health will improve Outcome: Progressing Goal: Ability to identify and utilize available resources and services will improve Outcome: Progressing Goal: Ability to manage health-related needs will improve Outcome: Progressing Problem: Nutritional: Goal: Maintenance of adequate nutrition will improve Outcome: Progressing Goal: Progress toward achieving an optimal weight will improve Outcome: Progressing Problem: Physical Regulation: Goal: Complications related to the disease process, condition or treatment will be avoided or minimized Outcome: Progressing Goal: Diagnostic test results will improve Outcome: Progressing Problem: Skin Integrity: Goal: Risk for impaired skin integrity will decrease Outcome: Progressing Problem: Lack of Knowledge: Goal: Ability to develop a pain control plan will improve Outcome: Progressing Goal: Ability to identify pain intensity on a pain scale and rate it consistently will improve Outcome: Progressing Goal: Ability to notify healthcare provider of pain before it becomes unmanageable or unbearable will improve Outcome: Progressing Problem: Medication: Goal: Satisfaction with pain management regimen will improve Outcome: Progressing Problem: Sensory: Goal: Ability to identify factors that increase the pain will improve Outcome: Progressing Goal: Pain level will decrease Outcome: Progressing Problem: Activity: Goal: Ability to return to normal activity level will improve Outcome: Progressing Problem: Lack of Knowledge: Goal: Knowledge of the prescribed therapeutic regimen will improve Outcome: Progressing Problem: Coping: Goal: Ability to cope will improve Outcome: Progressing Problem: Health Behavior: Goal: Identification of resources available to assist in meeting health care needs will improve Outcome: Progressing Problem: Sensory: Goal: Pain level will decrease Outcome: Progressing Problem: Cardiac: Goal: Ability to maintain an adequate cardiac output will improve Outcome: Progressing Goal: Hemodynamic stability will improve Outcome: Progressing Problem: Lack of Knowledge: Goal: Ability to state signs and symptoms to report to health care provider will improve Outcome: Progressing Goal: Knowledge of the prescribed therapeutic regimen will improve Outcome: Progressing Goal: Mental status will improve Outcome: Progressing Problem: Fluid Volume: Goal: Ability to achieve and maintain adequate urine output will improve Outcome: Progressing Problem: Respiratory: Goal: Respiratory status will improve Outcome: Progressing Problem: Lack of Knowledge: Goal: Verbalization of understanding the information provided will improve Outcome: Progressing Problem: Lack of Knowledge: Goal: Ability to develop a pain control plan will improve Outcome: Progressing Goal: Ability to identify pain intensity on a pain scale and rate it consistently will improve Outcome: Progressing Goal: Ability to notify healthcare provider of pain before it becomes unmanageable or unbearable will improve Outcome: Progressing Problem: Medication: Goal: Satisfaction with pain management regimen will improve Outcome: Progressing Problem: Sensory: Goal: Ability to identify factors that increase the pain will improve Outcome: Progressing Goal: Pain level will decrease Outcome: Progressing * Post-Procedure Note - Aric Cordova MD - 06/18/2022 12:47 PM CDT Radiology Brief Post Procedure Note Attending: Dr Payam Allison Rough Planer Tender: Dr. Aric Whitlock Sedation/Anesthesia: Local Pre-Op/Pre-Procedure Diagnosis: Needing access for dialysis Post-Op/Post-Procedure Diagnosis: Trialysis catheter placement Procedure Performed: Right IJ catheter placement Procedure Findings: Patent right IJ, proper position of the catheter tip Complications: None Estimated Blood Loss: None Specimens: None Condition: Stable Full report to follow. * Consults, Subsequent - James Horvath MD - 06/18/2022 12:20 PM CDT NEPHROLOGY CONSULT SUBSEQUENT VISIT INTERVAL HISTORY: NAEO. Patients tolerating PD well, only 750 UF this morning. ICU team unable to place trialysis, will ask IR for help. Patient remains intubated and sedated. REVIEW OF SYSTEMS: Unable to obtain as patient is intubated. OBJECTIVE Vitals: 06/18/22 0927 06/18/22 1000 06/18/22 1100 06/18/22 1216 BP: BP Location: Pulse: 107 110 100 103 Resp: 20 23 Temp: 37.3 ??C (99.1 ??F) 37.4 ??C (99.3 ??F) TempSrc: Esophageal Esophageal SpO2: 93% 94% 93% 98% Weight: Height: PHYSICAL EXAM: General: Intubated and sedated Eyes: PERRL. Sclera nonicteric. ENT: MMM. ETT in place. Trialysis line in L neck. Cardiac: Regular rate and rhythm. Pulm: On ventilator. Soft crackles throughout lung charles GI/Abd: Soft, obese, nondistended, BS positive Lymphatic: No significant LAD Extremities: No peripheral cyanosis. Warm extremities 1+ pitting edema. Skin: No rash or bruises Neuro: Sedated on ventilator. PERRL. Date 06/17/22 07 - 06/18/2259 06/18/22699 - 06/19/22 0659 Shift 3169-7527 4322-6696 24 Hour Total 9117-4970 9296-2559 24 Hour Total INTAKE I.V.(mL/kg) 953(7.3) 435.3(3.3) 1388.3(10.6) 189(1.4) 189(1.4) Other 7498 7483 30722 40977 31680 NG/GT 90 90 160 160 IV Piggyback 110 110 Shift Total(mL/kg) 8561(65.8) 8008.3(61.1) 06239.3(126.4) 70373(94.3) 48711(94.3) OUTPUT Urine(mL/kg/hr) 0(0) 0(0) Other 9865 5584 14200 19109 60066 Stool 170 170 Shift Total(mL/kg) 9865(75.8) 5754(43.9) 32797(119.1) 30327(115.6) 75514(115.6) NET -1304 2254.3 950.3 -2790 -2790 Weight (kg) 130.1 131.1 131.1 131.1 131.1 131.1 LABORATORY DATA: Recent Labs Lab Units 06/18/2252 06/17/22223006/17/22211606/17/22801 WBC K/cumm 8.9 -- 7.7 8.5 HEMOGLOBIN g/dL 8.8* 7.9* 6.2* 7.9* PLATELETS K/cumm 283 -- 300 262 Recent Labs Lab Units 06/18/2252 06/17/22211606/17/22 0806/16/22205106/16/22 0754 06/15/22205006/14/22 0816 06/13/22 2249 SODIUM mmol/L 143 142 140 140 < > 137 < > -- POTASSIUM PLASMA mmol/L 4.0 3.2* 3.9 4.0 < > 4.6 < > -- CHLORIDE mmol/L 104 104 104 104 < > 101 < > -- CO2 mmol/L 23 23 24 25 < > 26 < > -- BUN SERUM mg/dL 40* 41* 41* 36* < > 29* < > -- CREATININE mg/dL 6.24* 5.65* 5.16* 4.65* < > 3.93* < > -- ALBUMIN g/dL 3.3* 2.7* 3.0* 2.7* < > 3.0* < > -- CALCIUM mg/dL 9.5 9.3 9.1 9.3 < > 9.5 < > -- MAGNESIUM mg/dL 2.9* 2.9* 2.9* 3.0* < > 3.2* < > -- PHOSPHORUS PLASMA mg/dL -- 5.8* -- 5.4* -- 5.0* < > -- VANCOMYCIN RM mcg/mL 51.8 -- -- -- -- -- -- -- VANCOMYCIN TR mcg/mL -- -- -- -- -- -- -- 23.3* < > = values in this interval not displayed. Lab Results Component Value Date CALCIUM 9.5 06/18/2022 CAION 4.62 06/07/2022 PHOS 5.8 (H) 06/17/2022 Lab Results Component Value Date IRON 50 06/07/2022 TIBC 130 (L) 06/07/2022 TRANSFERSAT 38 06/07/2022 FERRITIN 2,062 (H) 06/07/2022 CURRENT MEDICATIONS: aspirin, 81 mg, feeding tube, Daily atorvastatin, 80 mg, feeding tube, Daily calcitRIOL, 0.25 mcg, feeding tube, Daily [Held by Provider] calcium acetate(phosphat bind), 667 mg, oral, QID chlorhexidine, 15 mL, mouth/throat, BID clopidogreL, 75 mg, feeding tube, Daily docusate, 100 mg, feeding tube, Daily ezetimibe, 10 mg, feeding tube, Daily gentamicin, , topical, Daily [Held by Provider] insulin glargine, 40 Units, subcutaneous, QAM [Held by Provider] insulin lispro, 0-10 Units, subcutaneous, Q4H ASHLEY [Held by Provider] insulin lispro, 10 Units, subcutaneous, Q4H [Held by Provider] insulin NPH, 15 Units, subcutaneous, Nightly meropenem, 1,000 mg, intravenous, Q24H [Held by Provider] nystatin, 500,000 Units, swish & spit, QID pantoprazole, 40 mg, intravenous, BID polyethylene glycol, 17 g, feeding tube, BID polyvinyl alcohol-povidone, 1 drop, each eye, QID senna, 8.8 mg, oral, Nightly dexmedeTOMIDine, 0-1.5 mcg/kg/hr, Last Rate: 0.3 mcg/kg/hr (06/18/22 1100) insulin regular, 0-30 Units/hr, Last Rate: Stopped (06/18/22 1013) And dextrose 5%, 40 mL/hr peritoneal fluid with or without additives for CCPD, peritoneal fluid with or without additives for CCPD, peritoneal fluid with or without additives for CCPD, fentaNYL, 0-400 mcg/hr, Last Rate: 175 mcg/hr (06/18/22 1100) [Held by Provider] heparin, 0-33 Units/kg/hr, Last Rate: 10.5 Units/kg/hr (06/18/22 1100) midazolam, 0-12 mg/hr, Last Rate: Stopped (06/18/22 0749) norepinephrine, 0-2 mcg/kg/min (Dosing Weight), Last Rate: Stopped (06/18/22 0600) propofol, 0-50 mcg/kg/min, Last Rate: Stopped (06/15/22 1018) sodium chloride 0.9%, 10 mL/hr, Last Rate: 10 mL/hr (06/12/22 0834) sodium chloride 0.9%, 3-12 mL/hr sodium chloride 0.9%, 3-12 mL/hr, Last Rate: 3 mL/hr (06/18/22 0600) ASSESSMENT AND RECOMMENDATIONS ESRD on PD - Schedule: nightly - last OP HD: 06/03/2022 - Access: Lt LQ PD catheter -Patient was on CCVHDF from 06/07-06/15, when attempt was made to switch back to CCPD given line issues. Has been on continuous PD 06/15-06/18. IR to place trialysis today, if they are successful we will start CRRT again for better volume removal. -Please obtain daily P while on CRRT, replete with PO if <3.5, replete with IV if <2 -Dose medications with consideration of effluent dose and any residual renal function -Maintain map >65 for renal perfusion -Avoid nephrotoxins including NSAIDs, RAASi, withhold contrast containing diagnostic studies unlessabsolutely necessary Strict I/Os Patient seen and discussed with my attending, Dr. Driver 06/18/22 James Horvath MD Nephrology Fellow PGY-4 Consult 1 Service Contact (phone): [phone] After hours and weekends: please page [phone] Cosigned by Miriam Driver MD at 06/18/2022 7:03 PM CDT Associated attestation - Miriam Driver MD - 06/18/2022 7:03 PM CDT I have seen and examined the patient on 06/18/2022. I agree with the findings and plan of care as documented in the nephrology Fellow's note. Miriam Driver MD Biology Department Chair Division of Nephrology * Pre-Procedure Note - Champ Paul MD - 06/18/2022 10:58 AM CDT PRE-SEDATION ASSESSMENT/H&P (LONG FORM) Patient is a 51 y.o. male with chief complaint of congestive heart failure, end- stage renal diseaseon dialysis. Procedure: Non tunneled dialysis catheter placement Indications/History: Assessment and Plan: 51 year old man intubated and sedated in the ICU with need for hemodialysis. Reportedly over 10 attempts have been made in the ICU by both the ICU team and interventional cardiology team to place central lines. These attempts were unsuccessful. The patient requires additional fluid removal via hemodialysis. IR was consulted for non tunneled hemodialysis catheter placement. The patient is currently intubated and sedated in the ICU PMH: Past Medical History: Diagnosis Date CAD (coronary artery disease) Chest pain Diabetes mellitus (HCC) Diabetes mellitus type I (HCC) Dialysis patient ([facility]) (HCC) ESRD on dialysis ([facility]) ([facility]) GERD (gastroesophageal reflux disease) Hyperlipidemia Hypertension Sleep apnea SOB (shortness of breath) History of Sedation/Anesthesia Complications: No patient is currently intubated and sedated History of Difficult Airway: No PSH Past Surgical History: Procedure Laterality Date APPENDECTOMY Appendectomy APPENDECTOMY CORONARY ANGIOPLASTY WITH STENT PLACEMENT FEMUR SURGERY KNEE SURGERY knee surgery OPEN REDUCTION INTERNAL FIXATION ORIF OTHER SURGICAL HISTORY eye surg-vitrectomy Social History: Social History Tobacco Use Smoking status: Never Smokeless tobacco: Former Substance and Sexual Activity Drug use: No Sexual activity: Defer Alcohol Use: Not At Risk Frequency of Alcohol Consumption: Monthly or less Average Number of Drinks: 3 or 4 Frequency of Binge Drinking: Never Family History: Family History Problem Relation Age of Onset Heart attack Father Current Meds: Current Facility-Administered Medications: acetaminophen (TYLENOL) tablet 650 mg, 650 mg, oral, Q4H PRN, Meme Castro MD, 650 mg at 06/15/22 1354 albuterol HFA (PROVENTIL HFA,VENTOLIN HFA,PROAIR HFA) 90 mcg/actuation inhaler 2 puff, 2 puff, inhalation, Q6H PRN (RT), Fernando Torres MD, 2 puff at 06/15/22 0250 aspirin chewable tablet 81 mg, 81 mg, feeding tube, Daily, Marcelina Pickard NP, 81 mg at 06/18/22 0947 atorvastatin (LIPITOR) tablet 80 mg, 80 mg, feeding tube, Daily, Marcelina Pickard NP, 80 mg at 06/18/22 0947 bisacodyL (DULCOLAX) suppository 10 mg, 10 mg, rectal, Daily PRN, Jeffrey Green MD bisacodyl EC (DULCOLAX EC) tablet 10 mg, 10 mg, oral, Daily PRN, Jeffrey Green MD calcitRIOL (ROCALTROL) 1 mcg/mL oral solution 0.25 mcg, 0.25 mcg, feeding tube, Daily, Miki Pickard NP, 0.25 mcg at 06/18/22 1016 [Held by Provider] calcium acetate(phosphat bind) (PHOSLO) capsule 667 mg, 667 mg, oral, QID, Fernando Torres MD, 667 mg at 06/07/22 0801 chlorhexidine (PERIDEX) 0.12 % solution 15 mL, 15 mL, mouth/throat, BID, Marcelina Pickard NP,15 mL at 06/18/22 0947 clopidogreL (PLAVIX) tablet 75 mg, 75 mg, feeding tube, Daily, Marcelina Pickard NP, 75 mg at 06/18/22 0948 dexmedeTOMIDine in 0.9% sodium chloride (PRECEDEX) 400 mcg/100 mL (4 mcg/mL) infusion (premix), 0-1.5 mcg/kg/hr, intravenous, Titrated, Meme Castro MD, Last Rate: 10.19 mL/hr at 06/18/22 0948, 0.3 mcg/kg/hr at 06/18/22 0948 dextrose gel in packet 15 g, 15 g, oral, Q15 Min PRN OR dextrose (D10W) 10% bolus 250 mL, 250 mL, intravenous, Q15 Min PRN, Jeffrey Green MD Nursing communication - ICU Insulin Infusion, , , Continuous AND insulin regular bolus from bag4-10 Units, 4-10 Units, intravenous, PRN, 4 Units at 06/18/22 0516 AND insulin regular in 0.9% sodium chloride (MYXREDLIN) 100 unit/100 mL (1 unit/mL) infusion (premix), 0-30 Units/hr, intravenous, Titrated, Stopped at 06/18/22 1013 AND insulin regular bolus from bag 4-6 Units, 4-6 Units, intravenous, Q1H PRN AND dextrose 5% infusion, 40 mL/hr, intravenous, Continuous PRN AND POCTglucose, , , PRN AND POCT glucose, , , q2h, Jeffrey Green MD dextrose 5% water flush 10 mL, 10 mL, intra-catheter, PRN, Jeffrey Green MD dextrose 5% water flush 10-30 mL, 10-30 mL, intra-catheter, PRN, Jeffrey Green MD Dianeal low calcium-dextrose 2.5 % 5,000 mL dialysis solution, , intraperitoneal, Continuous, James Horvath MD, New Bag at 06/18/22 015 Dianeal low calcium-dextrose 2.5 % 5,000 mL dialysis solution, , intraperitoneal, Continuous, James Horvath MD, New Bag at 06/18/22 015 Dianeal low calcium-dextrose 2.5 % 5,000 mL dialysis solution, , intraperitoneal, Continuous, James Horvath MD, New Bag at 06/18/22 0156 docusate (COLACE) 10 mg/mL oral liquid 100 mg, 100 mg, feeding tube, Daily, Marcelina Pickard NP, 100 mg at 06/18/22 0947 ezetimibe (ZETIA) tablet 10 mg, 10 mg, feeding tube, Daily, Marcelina Pickard NP, 10 mg at 06/18/22 0948 fentaNYL (SUBLIMAZE) bolus from bag 50 mcg, 50 mcg, intravenous, Q15 Min PRN, Marcelina Pickard NP, 50 mcg at 06/17/22 2323 fentaNYL (SUBLIMAZE) bolus from bag 50 mcg, 50 mcg, intravenous, Q15 Min PRN, Marcelina Pickard, ROBERTO, 50 mcg at 06/17/22 1826 fentaNYL 2500 mcg/50 mL cassette/syringe (premix), 0-400 mcg/hr, intravenous, Titrated, Marcelina Pickard NP, Last Rate: 3.5 mL/hr at 06/18/22 1029, 175 mcg/hr at 06/18/22 1029 fluticasone propionate (FLONASE) 50 mcg/actuation nasal spray 2 spray, 2 spray, each nostril, BID PRN, Fernando Torres MD gentamicin (GARAMYCIN) 0.1 % cream, , topical, Daily, James Horvath MD, Given at 06/18/22 0155 glucagon injection 1 mg, 1 mg, intramuscular, Q30 Min PRN, Jeffrey rGeen MD heparin 1,000 unit/mL injection 2,000 Units, 2,000 Units, intravenous, Q6H PRN OR heparin 1,000unit/mL injection 3,000 Units, 3,000 Units, intravenous, Q6H PRN, Meme Castro MD [Held by Provider] heparin in 0.9% sodium chloride 25,000 unit/250 mL infusion (premix), 0-33 Units/kg/hr, intravenous, Titrated, Meme Castro MD, Last Rate: 13.85 mL/hr at 06/18/22 0600, 10.5Units/kg/hr at 06/18/22 0600 [Held by Provider] insulin glargine (LANTUS, SEMGLEE) 100 unit/mL injection 40 Units, 40 Units, subcutaneous, QAM, Jeffrey Green MD [Held by Provider] insulin lispro (HumaLOG, ADMELOG) 100 unit/mL injection 0-10 Units, 0-10 Units, subcutaneous, Q4H ASHLEY, Jeffrey Green MD, 8 Units at 06/16/22 1327 [Held by Provider] insulin lispro (HumaLOG, ADMELOG) 100 unit/mL injection 10 Units, 10 Units, subcutaneous, Q4H, Jeffrey Green MD, 10 Units at 06/16/22 1327 [Held by Provider] insulin NPH (HumuLIN N, NovoLIN N) 100 unit/mL injection 15 Units, 15 Units, subcutaneous, Nightly, Jeffrey Green MD lidocaine (LIDODERM) 5 % patch 1 patch, 1 patch, transdermal, Daily PRN, Fernando Torres MD meropenem (MERREM) 1,000 mg/110 mL in sodium chloride 0.9% (premix) 1,000 mg, 1,000 mg, intravenous, Q24H, Jeffrey Green MD, Last Rate: 220 mL/hr at 06/17/22 1216, 1,000 mg at 06/17/22 1216 midazolam (VERSED) 1 mg/mL in sodium chloride 0.9% (premix) solution, 0-12 mg/hr, intravenous, Titrated, Jeffrey Green MD, Stopped (Dual Sign) at 06/18/22 0749 midazolam (VERSED) 1 mg/mL injection 2 mg, 2 mg, intravenous, Q2H PRN, Tyra De La Torre MD, 2 mg at 06/17/22 1544 norepinephrine in 0.9% sodium chloride (LEVOPHED) 8,000 mcg/250 mL (32 mcg/mL) infusion (premix), 0-2 mcg/kg/min (Dosing Weight), intravenous, Titrated, Jeffrey Green MD, Stopped at 06/18/22 0600 [Held by Provider] nystatin 100,000 unit/mL oral suspension 500,000 Units, 500,000 Units, swish & spit, QINadege, Fernando Torres MD, 500,000 Units at 06/07/22 0802 ondansetron ODT (ZOFRAN-ODT) disintegrating tablet 4 mg, 4 mg, feeding tube, Q6H PRN OR ondansetron (ZOFRAN) injection 4 mg, 4 mg, intravenous, Q6H PRN, Tyra De La Torre MD pantoprazole (PROTONIX) 4 mg/mL injection 40 mg, 40 mg, intravenous, BID, Marcelina Pickard NP, 40 mg at 06/18/22 0948 phenoL (CHLORASEPTIC) 1.4 % oral spray 1 spray, 1 spray, mouth/throat, Q2H PRN, Nadia Torres MD polyethylene glycol (MIRALAX) packet 17 g, 17 g, feeding tube, Daily PRN, Marcelina Pickard NP polyethylene glycol (MIRALAX) packet 17 g, 17 g, feeding tube, BID, Marcelina Pickard NP, 17 gat 06/18/22 0947 polyvinyl alcohol-povidone (REFRESH CLASSIC) 1.4-0.6 % ophthalmic solution 1 drop, 1 drop, each eye, QID, Jeffrey Green MD, 1 drop at 06/18/22 0947 propofol (DIPRIVAN) 10 mg/mL infusion, 0-50 mcg/kg/min, intravenous, Titrated, Fernando Torres MD, Stopped at 06/15/22 1018 ramelteon (ROZEREM) tablet 8 mg, 8 mg, feeding tube, Nightly PRN, Tyra De La Torre MD, 8 mg at 06/08/222040 senna 1.76 mg/mL syrup 8.8 mg, 8.8 mg, oral, Nightly, CastroMeme josue MD, 8.8 mg at 06/16/222109 sodium chloride 0.9% infusion, 10 mL/hr, intravenous, Continuous, Fernando Torres MD, Last Rate: 10 mL/hr at 06/12/22 0834, 10 mL/hr at 06/12/22 0834 sodium chloride 0.9% solution, 3-12 mL/hr, intra-catheter, Continuous, Jeffrey Green MD sodium chloride 0.9% solution, 3-12 mL/hr, intra-catheter, Continuous, Jeffrey Green MD, LastRate: 3 mL/hr at 06/18/22 0600, 3 mL/hr at 06/18/22 0600 Home Meds: HOME MEDICATIONS : amLODIPine (NORVASC) 10 mg tablet aspirin 81 mg enteric coated tablet atorvastatin (LIPITOR) 80 mg tablet calcitRIOL (ROCALTROL) 0.25 mcg capsule calcium acetate,phosphat bind, (PHOSLO) 667 mg capsule cetirizine (ZyrTEC) 10 mg tablet cholecalciferol (VITAMIN D-3) 2000 unit tablet cloNIDine (CATAPRES) 0.1 mg tablet clopidogrel (PLAVIX) 75 mg tablet colchicine (Colcrys) 0.6 mg tablet doxycycline monohydrate (ADOXA) 50 mg tablet EZETIMIBE ORAL furosemide (LASIX) 80 mg tablet hydrALAZINE (APRESOLINE) 100 mg tablet insulin aspart U-100 (NovoLOG) 100 unit/mL cartridge isosorbide mononitrate ER (IMDUR) 30 mg 24 hr tablet meloxicam (MOBIC) 7.5 mg tablet metoprolol (LOPRESSOR) 100 mg tablet omeprazole (PriLOSEC) 20 mg capsule pen needle, diabetic (BD Ultra-Fine Short Pen Needle) 31 gauge x 5/16 needle ranolazine ER (RANEXA) 500 mg 12 hr tablet UNABLE TO FIND Allergies: Allergies Allergen Reactions Allopurinol Other (See comments) and Shortness of breath Shuts my kidneys down per patient. Shuts my kidneys down per patient. Contrast Dye [Iodinated Contrast Media] Rash Other Rash Rash Iodinated Diagnostic Agents Ticagrelor Rash Rash REVIEW OF SYSTEMS: Review of systems per HPI and otherwise all other systems are negative Vitals: Vitals: 06/18/22 0927 BP: Pulse: 107 Resp: Temp: SpO2: 93% Pertinent Labs: Recent Labs Lab Units 06/18/22 0852 06/17/22223006/17/22211606/17/22 0802 WBC K/cumm 8.9 -- 7.7 8.5 HEMOGLOBIN g/dL 8.8* 7.9* 6.2* 7.9* HEMATOCRIT % 27.1* 24.0* 19.1* 24.6* PLATELETS K/cumm 283 -- 300 262 Recent Labs Lab Units 06/18/22 0852 06/17/22211606/17/22 0802 SODIUM mmol/L 143 142 140 POTASSIUM PLASMA mmol/L 4.0 3.2* 3.9 CHLORIDE mmol/L 104 104 104 CO2 mmol/L 23 23 24 BUN SERUM mg/dL 40* 41* 41* CREATININE mg/dL 6.24* 5.65* 5.16* CALCIUM mg/dL 9.5 9.3 9.1 AST Units/L 60* 52* 43 ALT Units/L 36 33 35 Recent Labs Lab Units 06/18/22 0513 06/17/22 0614 06/17/22 0036 06/12/22 0152 06/11/22 1521 PROTIME (PT) sec -- -- -- -- 10.7 INR -- -- -- -- 1.0 APTT sec 63* 64* 67* < > 30 < > = values in this interval not displayed. Recent Labs Lab Units 06/18/22 1014 06/18/22 0513 06/17/22 0346 PH ART 7.36 7.33* 7.32* PCO2 ART mmHg 37 39 44 PO2 ART mmHg 74* 92 93 BASE EXC ART mmol/L -4 -5 -3 Imaging PERTINENT PHYSICAL EXAM: General: Inubated and sedated, does not respond to touch Respiratory: Ventilated breaths, expiratory wheezes Cardiovascular: Regular rate and rhythm Abdominal: Distended abdomen Assessment: Proceed with non tunneled hemodialysis catheter placement Consent obtained from brother Ronny by phone Airway Exam: Intubated ASA Classification:Class 3: Patient with severe systemic disease Sedation Plan: Sedation PO status: Irrelevant Benefits, risks and alternatives of procedure and planned sedation have been discussed with the patient and/or their strategic partnership representative. All questions answered and they agree to proceed. * This addendum was created to correct the sedation plan. Patient is already intubated and sedated.We will continue with current sedation. * Plan of Care - Jersey Castano, FANY - 06/18/2022 12:59 AM CDT Mechanical Ventilation Situation - Patient remains on full support throughout the night. Plan - Continue to monitor, evaluate and wean FIO2 as tolerated. * Plan of Care - Aury Paul RN - 06/17/2022 6:34 PM CDT Problem: Lack of Knowledge: Goal: Knowledge of disease or condition and prescribed therapeutic regimen will improve Outcome: Progressing Problem: Coping: Goal: Level of anxiety will decrease Outcome: Progressing Problem: Lack of Knowledge: Goal: Ability to describe self-care measures that may prevent or decrease complications will improve Outcome: Progressing Goal: Knowledge of disease or condition will improve Outcome: Progressing Goal: Knowledge of the prescribed therapeutic regimen will improve Outcome: Progressing Goal: Knowledge of prevention and discharge planning will improve Outcome: Progressing Problem: Fluid Volume: Goal: Ability to maintain a balanced intake and output will improve Outcome: Progressing * Consults, Subsequent - James Horvath MD - 06/17/2022 5:00 PM CDT NEPHROLOGY CONSULT SUBSEQUENT VISIT INTERVAL HISTORY: NAEO. Patients tolerating PD well, but no I & O's documented. Glucose better controlled now. Patient remains intubated and sedated. REVIEW OF SYSTEMS: Unable to obtain as patient is intubated. OBJECTIVE Vitals: 06/17/22 1530 06/17/22 1531 06/17/22 1545 06/17/22 1600 BP: BP Location: Pulse: 77 91 81 75 Resp: 20 20 20 Temp: 37.7 ??C (99.9 ??F) 37.8 ??C (100 ??F) 38 ??C (100.4 ??F) TempSrc: Esophageal SpO2: 95% 94% 94% 96% Weight: Height: PHYSICAL EXAM: General: Intubated and sedated Eyes: PERRL. Sclera nonicteric. ENT: MMM. ETT in place. Trialysis line in L neck. Cardiac: Regular rate and rhythm. Pulm: On ventilator. Soft crackles throughout lung charles GI/Abd: Soft, obese, nondistended, BS positive Lymphatic: No significant LAD Extremities: No peripheral cyanosis. Warm extremities 1+ pitting edema. Skin: No rash or bruises Neuro: Sedated on ventilator. PERRL. Date 06/16/22699 - 06/17/2265806/17/22699 - 06/18/22 0659 Shift 7689-3359 6302-7184 24 Hour Total 3074-7861 9859-5511 24 Hour Total INTAKE I.V.(mL/kg) 856.1(6.8) 544.4(4.3) 1400.5(11) 911.3(7) 911.3(7) Other 7498 7498 NG/GT 460 460 IV Piggyback 110 110 Shift Total(mL/kg) 1316.1(10.5) 544.4(4.3) 1860.5(14.6) 8519.3(65.5) 8519.3(65.5) OUTPUT Urine(mL/kg/hr) 0(0) 0(0) Other 9865 9865 Shift Total(mL/kg) 0(0) 0(0) 9865(75.8) 9865(75.8) NET 1316.1 544.4 1860.5 -1345.7 -1345.7 Weight (kg) 125 127.2 127.2 130.1 130.1 130.1 LABORATORY DATA: Recent Labs Lab Units 06/17/22 0802 06/16/22205106/16/22 075 WBC K/cumm 8.5 7.9 9.1 HEMOGLOBIN g/dL 7.9* 7.4* 7.5* PLATELETS K/cumm 262 214 214 Recent Labs Lab Units 06/17/22 0802 06/16/22205106/16/22 1257 06/16/22 0754 06/15/22205006/15/22 0806 06/14/22 1941 06/14/22 0816 06/13/22 2249 SODIUM mmol/L 140 140 137 136 137 < > 138 < > -- POTASSIUM PLASMA mmol/L 3.9 4.0 3.9 4.2 4.6 < > 4.7 < > -- CHLORIDE mmol/L 104 104 101 100 101 < > 102 < > -- CO2 mmol/L 24 25 26 26 26 < > 27 < > -- BUN SERUM mg/dL 41* 36* 33* 33* 29* < > 17 < > -- CREATININE mg/dL 5.16* 4.65* 4.34* 4.13* 3.93* < > 2.22* < > -- ALBUMIN g/dL 3.0* 2.7* -- 3.1* 3.0* < > 3.1* < > -- CALCIUM mg/dL 9.1 9.3 9.0 8.9 9.5 < > 9.1 < > -- MAGNESIUM mg/dL 2.9* 3.0* -- 2.9* 3.2* < > 3.0* < > -- PHOSPHORUS PLASMA mg/dL -- 5.4* -- -- 5.0* -- 3.1 -- -- VANCOMYCIN TR mcg/mL -- -- -- -- -- -- -- -- 23.3* < > = values in this interval not displayed. Lab Results Component Value Date CALCIUM 9.1 06/17/2022 CAION 4.62 06/07/2022 PHOS 5.4 (H) 06/16/2022 Lab Results Component Value Date IRON 50 06/07/2022 TIBC 130 (L) 06/07/2022 TRANSFERSAT 38 06/07/2022 FERRITIN 2,062 (H) 06/07/2022 CURRENT MEDICATIONS: aspirin, 81 mg, feeding tube, Daily atorvastatin, 80 mg, feeding tube, Daily calcitRIOL, 0.25 mcg, feeding tube, Daily [Held by Provider] calcium acetate(phosphat bind), 667 mg, oral, QID chlorhexidine, 15 mL, mouth/throat, BID [Held by Provider] cloNIDine, 0.1 mg, oral, BID clopidogreL, 75 mg, feeding tube, Daily docusate, 100 mg, feeding tube, Daily ezetimibe, 10 mg, feeding tube, Daily gentamicin, , topical, Daily [Held by Provider] insulin glargine, 40 Units, subcutaneous, QAM [Held by Provider] insulin lispro, 0-10 Units, subcutaneous, Q4H ASHLEY [Held by Provider] insulin lispro, 10 Units, subcutaneous, Q4H [Held by Provider] insulin NPH, 15 Units, subcutaneous, Nightly meropenem, 1,000 mg, intravenous, Q24H [Held by Provider] nystatin, 500,000 Units, swish & spit, QID pantoprazole, 40 mg, intravenous, BID polyethylene glycol, 17 g, feeding tube, BID polyvinyl alcohol-povidone, 1 drop, each eye, QID senna, 8.8 mg, oral, Nightly dexmedeTOMIDine, 0-1.5 mcg/kg/hr, Last Rate: 0.04 mcg/kg/hr (06/17/22 1600) insulin regular, 0-30 Units/hr, Last Rate: 4.5 Units/hr (06/17/22 1600) And dextrose 5%, 40 mL/hr peritoneal fluid with or without additives for CCPD, peritoneal fluid with or without additives for CCPD, peritoneal fluid with or without additives for CCPD, peritoneal fluid with or without additives for CCPD, peritoneal fluid with or without additives for CCPD, peritoneal fluid with or without additives for CCPD, peritoneal fluid with or without additives for CCPD, fentaNYL, 0-400 mcg/hr, Last Rate: 200 mcg/hr (06/17/22 1600) [Held by Provider] heparin, 0-33 Units/kg/hr, Last Rate: Stopped (06/17/22 1420) midazolam, 0-12 mg/hr, Last Rate: 3 mg/hr (06/17/22 1056) norepinephrine, 0-2 mcg/kg/min (Dosing Weight), Last Rate: 0.03 mcg/kg/min (06/17/22 1600) propofol, 0-50 mcg/kg/min, Last Rate: Stopped (06/15/22 1018) sodium chloride 0.9%, 10 mL/hr, Last Rate: 10 mL/hr (06/12/22 0834) sodium chloride 0.9%, 3-12 mL/hr sodium chloride 0.9%, 3-12 mL/hr, Last Rate: 3 mL/hr (06/16/22 1900) ASSESSMENT AND RECOMMENDATIONS ESRD on PD - Schedule: nightly - last OP HD: 06/03/2022 - Access: Lt LQ PD catheter -Patient was on CCVHDF from 06/07-06/15, when attempt was made to switch back to CCPD given line issues. Have not been able to remove as much fluid with PD, which is expected. For now, we will continue with CCPD, but increase the frequency of exchanges. Will place order for 12 hours with 6 exchanges of 2500 mL 2.5% dianeal. This will carry over until 1 PM tomorrow. -If patient requires more volumes removal, or more controlled volume removal, he will need a trialysis or a tunneled catheter to do CRRT. Patient seen and discussed with my attending, Dr. Driver 06/17/22 James Horvath MD Nephrology Fellow PGY-4 Consult 1 Service Contact (phone): [phone] After hours and weekends: please page [phone] Cosigned by Miriam Driver MD at 06/17/2022 7:02 PM CDT Associated attestation - Miriam Driver MD - 06/17/2022 7:02 PM CDT I have seen and examined the patient on 06/17/2022. I agree with the findings and plan of care as documented in the nephrology Fellow's note. Miriam Driver MD Biology Department Chair Division of Nephrology * Consults, Subsequent - Sandrine Myers MD - 06/17/2022 1:40 PM CDT Pulmonary Daily Progress Subjective Chief complaint of respiratory failure. Interval History: Febrile overnight, transitioned to continuous 24hr PD per Nephrology. FiO2 to 40%with unchanged PEEP at 8. No reported significant increase in secretions or respiratory status. Scheduled Meds:aspirin, 81 mg, feeding tube, Daily atorvastatin, 80 mg, feeding tube, Daily calcitRIOL, 0.25 mcg, feeding tube, Daily [Held by Provider] calcium acetate(phosphat bind), 667 mg, oral, QID chlorhexidine, 15 mL, mouth/throat, BID [Held by Provider] cloNIDine, 0.1 mg, oral, BID clopidogreL, 75 mg, feeding tube, Daily docusate, 100 mg, feeding tube, Daily ezetimibe, 10 mg, feeding tube, Daily gentamicin, , topical, Daily [Held by Provider] insulin glargine, 40 Units, subcutaneous, QAM [Held by Provider] insulin lispro, 0-10 Units, subcutaneous, Q4H ASHLEY [Held by Provider] insulin lispro, 10 Units, subcutaneous, Q4H [Held by Provider] insulin NPH, 15 Units, subcutaneous, Nightly meropenem, 1,000 mg, intravenous, Q24H [Held by Provider] nystatin, 500,000 Units, swish & spit, QID pantoprazole, 40 mg, intravenous, BID polyethylene glycol, 17 g, feeding tube, BID polyvinyl alcohol-povidone, 1 drop, each eye, QID senna, 8.8 mg, oral, Nightly Continuous Infusions:dexmedeTOMIDine, 0-1.5 mcg/kg/hr, Last Rate: 0.04 mcg/kg/hr (06/17/22 1337) insulin regular, 0-30 Units/hr, Last Rate: 4.5 Units/hr (06/17/22 0940) And dextrose 5%, 40 mL/hr peritoneal fluid with or without additives for CCPD, peritoneal fluid with or without additives for CCPD, peritoneal fluid with or without additives for CCPD, peritoneal fluid with or without additives for CCPD, fentaNYL, 0-400 mcg/hr, Last Rate: 175 mcg/hr (06/17/22 1135) heparin, 0-33 Units/kg/hr, Last Rate: 10.5 Units/kg/hr (06/17/22 1000) midazolam, 0-12 mg/hr, Last Rate: 3 mg/hr (06/17/22 1056) norepinephrine, 0-2 mcg/kg/min (Dosing Weight), Last Rate: 0.03 mcg/kg/min (06/17/22 1000) propofol, 0-50 mcg/kg/min, Last Rate: Stopped (06/15/22 1018) sodium chloride 0.9%, 10 mL/hr, Last Rate: 10 mL/hr (06/12/22 0834) sodium chloride 0.9%, 3-12 mL/hr sodium chloride 0.9%, 3-12 mL/hr, Last Rate: 3 mL/hr (06/16/22 1900) PRN Meds:. acetaminophen albuterol HFA bisacodyL bisacodyl EC dextrose OR dextrose Nursing communication - ICU Insulin Infusion AND insulin regular AND insulin regular AND insulin regular AND dextrose 5% AND POCT glucose AND POCT glucose dextrose 5% water dextrose 5% water fentaNYL fentaNYL fluticasone propionate glucagon heparin OR heparin lidocaine midazolam ondansetron ODT OR ondansetron phenoL polyethylene glycol ramelteon I/O last 2 completed shifts: In: 1860.5 [I.V.:1400.5; NG/GT:460] Out: 0 Objective Vitals: Vitals: 06/17/22 1300 BP: Pulse: 96 Resp: 20 Temp: SpO2: 92% Physical Exam: Constitutional: Intubated, sedated, RASS -2 Head: ETT in place Cardiac: Regular rate, regular rhythm. No murmurs Resp: Clear to auscultation bilaterally. No wheezes, rhonchi, or rales. Vent AC/VC 500/20/40%/8, plateau pressure remains ~20 Abdomen: Soft. Obese, non distended, on PD Extremities: +Peripheral edema though improved, no cyanosis Data: I have reviewed labs from last 24 hours. Pertinent findings include: AM ABG 06/17/22 7.32/44/93, tracheal aspirate 06/12 NGTD Recent Results (from the past 24 hour(s)) POCT glucose Collection Time: 06/16/22 3:27 PM Result Value Ref Range Glucose, POC 316 (H) 70 - 199 mg/dL Blood gas, arterial Collection Time: 06/16/22 3:31 PM Result Value Ref Range pH, Art 7.41 7.35 - 7.45 PCO2, Arterial 36 35 - 45 mmHg PO2, Arterial 82 (L) 83 - 108 mmHg HCO3 Art (Calculated) 23 20 - 30 mmol/L BE, art -1 mmol/L O2 Sat Art (Measured) 96 (H) 90 - 95 % POCT glucose Collection Time: 06/16/22 4:41 PM Result Value Ref Range Glucose, POC 305 (H) 70 - 199 mg/dL aPTT Collection Time: 06/16/22 4:49 PM Result Value Ref Range aPTT 58 (H) 27 - 37 sec POCT glucose Collection Time: 06/16/22 5:52 PM Result Value Ref Range Glucose, POC 328 (H) 70 - 199 mg/dL POCT glucose Collection Time: 06/16/22 7:16 PM Result Value Ref Range Glucose, POC 250 (H) 70 - 199 mg/dL POCT glucose Collection Time: 06/16/22 8:06 PM Result Value Ref Range Glucose, POC 230 (H) 70 - 199 mg/dL CBC with auto differential Collection Time: 06/16/22 8:52 PM Result Value Ref Range WBC 7.9 3.8 - 9.9 K/cumm Hgb 7.4 (L) 13.0 - 17.5 g/dL Hct 22.8 (L) 38.9 - 50.3 % Plt 214 150 - 400 K/cumm MPV 10.1 9.1 - 12.3 fL RBC 2.41 (L) 4.30 - 5.80 M/cumm MCV 94.6 81.3 - 96.4 fL MCH 30.7 27.1 - 33.3 pg MCHC 32.5 32.3 - 35.7 g/dL RDW CV 14.9 11.1 - 14.9 % RDW SD 47.8 35.7 - 48.1 fL NRBC abs 0.00 0.00 - 0.01 K/cumm Comprehensive metabolic panel Collection Time: 06/16/22 8:52 PM Result Value Ref Range Sodium 140 135 - 145 mmol/L Potassium, pl 4.0 3.3 - 4.9 mmol/L Chloride 104 97 - 110 mmol/L CO2 25 22 - 32 mmol/L Anion gap 11 2 - 15 mmol/L BUN 36 (H) 8 - 25 mg/dL Creatinine 4.65 (H) 0.80 - 1.30 mg/dL Glucose 197 70 - 199 mg/dL Calcium 9.3 8.5 - 10.3 mg/dL Bilirubin, total 0.4 0.1 - 1.2 mg/dL Protein, pl 6.5 6.5 - 8.5 g/dL Albumin 2.7 (L) 3.5 - 5.0 g/dL Alk phos 197 (H) 40 - 130 Units/L ALT 35 7 - 55 Units/L AST 36 10 - 50 Units/L Magnesium Collection Time: 06/16/22 8:52 PM Result Value Ref Range Magnesium 3.0 (H) 1.4 - 2.5 mg/dL Lipase Collection Time: 06/16/22 8:52 PM Result Value Ref Range Lipase 26 10 - 99 Units/L Beta-hydroxybutyrate Collection Time: 06/16/22 8:52 PM Result Value Ref Range Beta-Hydroxybutyrate 0.1 0.0 - 0.5 mmol/L Phosphorus Collection Time: 06/16/22 8:52 PM Result Value Ref Range Phosphorus, pl 5.4 (H) 2.3 - 4.5 mg/dL Triglycerides Collection Time: 06/16/22 8:52 PM Result Value Ref Range Triglycerides 253 (H) <=149 mg/dL Lactate Collection Time: 06/16/22 8:52 PM Result Value Ref Range Lactate 1.1 0.7 - 2.0 mmol/L Differential, auto Collection Time: 06/16/22 8:52 PM Result Value Ref Range Neutrophil abs 5.4 1.7 - 6.5 K/cumm Imm gran abs 0.2 (H) 0.0 - 0.1 K/cumm Lymphocyte abs 1.0 0.8 - 3.3 K/cumm Monocyte abs 1.1 (H) 0.2 - 0.8 K/cumm Eosinophil abs 0.2 0.0 - 0.5 K/cumm Basophil abs 0.0 0.0 - 0.1 K/cumm Neutrophil pct 68.6 % Imm gran pct 2.0 % Lymphocyte pct 12.9 % Monocyte pct 14.3 % Eosinophil pct 1.9 % Basophil pct 0.3 % eGFR Collection Time: 06/16/22 8:52 PM Result Value Ref Range eGFR 14 (L) 90 - 130 mL/min/1.73 m2 POCT glucose Collection Time: 06/16/22 10:07 PM Result Value Ref Range Glucose, POC 166 70 - 199 mg/dL POCT glucose Collection Time: 06/16/22 11:11 PM Result Value Ref Range Glucose, POC 172 70 - 199 mg/dL Blood gas, arterial Collection Time: 06/16/22 11:19 PM Result Value Ref Range pH, Art 7.38 7.35 - 7.45 PCO2, Arterial 37 35 - 45 mmHg PO2, Arterial 99 83 - 108 mmHg HCO3 Art (Calculated) 22 20 - 30 mmol/L BE, art -3 mmol/L O2 Sat Art (Measured) 97 (H) 90 - 95 % aPTT Collection Time: 06/17/22 12:36 AM Result Value Ref Range aPTT 67 (H) 27 - 37 sec POCT glucose Collection Time: 06/17/22 12:36 AM Result Value Ref Range Glucose, POC 165 70 - 199 mg/dL POCT glucose Collection Time: 06/17/22 1:52 AM Result Value Ref Range Glucose, POC 127 70 - 199 mg/dL POCT glucose Collection Time: 06/17/22 2:52 AM Result Value Ref Range Glucose, POC 119 70 - 199 mg/dL POCT glucose Collection Time: 06/17/22 3:44 AM Result Value Ref Range Glucose, POC 94 70 - 199 mg/dL Blood gas, arterial Collection Time: 06/17/22 3:46 AM Result Value Ref Range pH, Art 7.32 (L) 7.35 - 7.45 PCO2, Arterial 44 35 - 45 mmHg PO2, Arterial 93 83 - 108 mmHg HCO3 Art (Calculated) 24 20 - 30 mmol/L BE, art -3 mmol/L O2 Sat Art (Measured) 96 (H) 90 - 95 % POCT glucose Collection Time: 06/17/22 4:53 AM Result Value Ref Range Glucose, POC 176 70 - 199 mg/dL POCT glucose Collection Time: 06/17/22 6:13 AM Result Value Ref Range Glucose, POC 234 (H) 70 - 199 mg/dL aPTT Collection Time: 06/17/22 6:14 AM Result Value Ref Range aPTT 64 (H) 27 - 37 sec POCT glucose Collection Time: 06/17/22 7:37 AM Result Value Ref Range Glucose, POC 202 (H) 70 - 199 mg/dL CBC with auto differential Collection Time: 06/17/22 8:02 AM Result Value Ref Range WBC 8.5 3.8 - 9.9 K/cumm Hgb 7.9 (L) 13.0 - 17.5 g/dL Hct 24.6 (L) 38.9 - 50.3 % Plt 262 150 - 400 K/cumm MPV 10.1 9.1 - 12.3 fL RBC 2.55 (L) 4.30 - 5.80 M/cumm MCV 96.5 (H) 81.3 - 96.4 fL MCH 31.0 27.1 - 33.3 pg MCHC 32.1 (L) 32.3 - 35.7 g/dL RDW CV 15.6 (H) 11.1 - 14.9 % RDW SD 49.9 (H) 35.7 - 48.1 fL NRBC abs 0.00 0.00 - 0.01 K/cumm Comprehensive metabolic panel Collection Time: 06/17/22 8:02 AM Result Value Ref Range Sodium 140 135 - 145 mmol/L Potassium, pl 3.9 3.3 - 4.9 mmol/L Chloride 104 97 - 110 mmol/L CO2 24 22 - 32 mmol/L Anion gap 12 2 - 15 mmol/L BUN 41 (H) 8 - 25 mg/dL Creatinine 5.16 (H) 0.80 - 1.30 mg/dL Glucose 206 (H) 70 - 199 mg/dL Calcium 9.1 8.5 - 10.3 mg/dL Bilirubin, total 0.4 0.1 - 1.2 mg/dL Protein, pl 6.9 6.5 - 8.5 g/dL Albumin 3.0 (L) 3.5 - 5.0 g/dL Alk phos 199 (H) 40 - 130 Units/L ALT 35 7 - 55 Units/L AST 43 10 - 50 Units/L Magnesium Collection Time: 06/17/22 8:02 AM Result Value Ref Range Magnesium 2.9 (H) 1.4 - 2.5 mg/dL Differential, auto Collection Time: 06/17/22 8:02 AM Result Value Ref Range Neutrophil abs 5.2 1.7 - 6.5 K/cumm Imm gran abs 0.1 0.0 - 0.1 K/cumm Lymphocyte abs 1.6 0.8 - 3.3 K/cumm Monocyte abs 1.3 (H) 0.2 - 0.8 K/cumm Eosinophil abs 0.2 0.0 - 0.5 K/cumm Basophil abs 0.1 0.0 - 0.1 K/cumm Neutrophil pct 61.7 % Imm gran pct 1.3 % Lymphocyte pct 18.6 % Monocyte pct 15.2 % Eosinophil pct 2.6 % Basophil pct 0.6 % eGFR Collection Time: 06/17/22 8:02 AM Result Value Ref Range eGFR 13 (L) 90 - 130 mL/min/1.73 m2 POCT glucose Collection Time: 06/17/22 9:39 AM Result Value Ref Range Glucose, POC 181 70 - 199 mg/dL POCT glucose Collection Time: 06/17/22 10:11 AM Result Value Ref Range Glucose, POC 119 70 - 199 mg/dL POCT glucose Collection Time: 06/17/22 10:51 AM Result Value Ref Range Glucose, POC 185 70 - 199 mg/dL POCT glucose Collection Time: 06/17/22 11:55 AM Result Value Ref Range Glucose, POC 167 70 - 199 mg/dL POCT glucose Collection Time: 06/17/22 12:59 PM Result Value Ref Range Glucose, POC 151 70 - 199 mg/dL I have reviewed radiology images from last 24 hours: Pertinent findings include: CXR 06/17/22 IMPRESSION: First exam: Comparison is made to chest radiograph dated 06/16/2022 at 3:42 AM. Endotracheal tube terminates 5 cm above the boni. Gastric tube extends below diaphragm and terminates out of the field of view. Hypoinflated lungs with bibasilar atelectasis, similar to prior study. No right pleural effusion. A small left pleural effusion may be present. No pneumothorax. Stable cardiomediastinal silhouette. Second exam: No significant interval change. Assessment/Plan Acute hypoxemic respiratory failure (HCC) Assessment & Plan Mr. Garvin is a 51 y/o M with medical history most significant for CAD, DM1, ESRD on PD, initially presenting for complex PCI, found to have cholecystitis, now in CCU with cardiogenic shock. Pulmonary is consulted for hypoxemic respiratory failure. Problem List: - Acute hypoxemic respiratory failure, secondary to cardiogenic pulmonary edema, atelectasis - Cardiogenic shock, NSTEMI s/p complex PCI, impella - BEN on home CPAP - Acute cholecystitis, meropenem/vancomycin Acute hypoxemic respiratory failure initially with a component of cardiogenic pulmonary edema, though now most likely secondary to lower lobe atelectasis. FiO2 currently 40%, PEEP 8; continue to weanFiO2 as tolerated, would keep PEEP at 8 given PD and obesity. Would continue to lighten sedation and consider PSV trials once he is hemodynamically stable without fevers. Recommendations: --Continue to wean sedation and consider PSV trials once hemodynamically stable, afebrile, with compensated acid-base balance --Continue IPV to assist with mucous clearance --Continue volume removal as tolerated --Continue lung protective ventilation keeping plat pressures < 30, PEEP 8 --Continue antibiotics per primary team Pulmonary will continue to follow. Please call manager field investigations pulmonary consult fellow with additional questions or concerns. Sandrine Myers MD Pulmonary and Critical Care, PGY-4 Cosigned by Girish Grant MD at 06/17/2022 4:05 PM CDT Associated attestation - Girish Grant MD - 06/17/2022 4:05 PM CDT I have seen and examined the patient on 06/17/22. I agree with the findings and plan of care as documented in the resident's/fellow's note. and as discussed with the resident/fellow.. * Consults, Subsequent - Delmar Longo MD PhD - 06/17/2022 9:13 AM CDT Endocrinology & Diabetes Progress Note Patient: Adelia Garvin Jr., 51 y.o. male (: 1970) Room: [place] [address] ( ) LOS: 13 Adelia Garvin Jr. is a 51 y.o. male with PMHx CHF (EF 50% in 2017), atrial fibrillation not on OAC, HTN/HLD, CAD s/p PCI, ESRD on PD, hyperparathyroidism presenting with weakness, N/V, diarrhea and chest pain. He is scheduled for C on 06/06. Diabetes service consulted for T1DM on insulin pump. Interval Events & Subjective He is still sedated intubated on mechanical ventilation High insulin requirements in setting acute illness on Levophed (vasopressor) BG range: 202-234 06/17/2022 Now on continuous insulin infusion per protocol (4.5 units/hr) TF at rate 30 ml/hr - held On PD overnight Diet: No diet orders on file Recent Labs Lab Units 06/17/22 0737 06/17/22 0613 06/17/22 0453 06/17/22 0344 06/17/22 0252 06/17/22 0152 06/17/22 0036 06/16/22 2311 06/16/22 2207 06/16/22 2052 GLUCOSE mg/dL -- -- -- -- -- -- -- -- -- 197 POC GLUCOSE MONITOR mg/dL 202* 234* 176 94 119 127 165 172 166 -- Interval Review of Systems Twelve point ROS reviewed and negative except as noted in HPI. All other systems negative. Vitals & Exam Temp: [37.3 ??C (99.1 ??F)-38.5 ??C (101.3 ??F)] 37.5 ??C (99.5 ??F) Pulse: [56-102] 64 Resp: [19-23] 20 SpO2: [91 %-99 %] 96 % Arterial Line BP: (79-174)/(33-61) 80/33 FiO2 (%): [40 %-70 %] 40 % No intake/output data recorded. Physical Exam Gen : sedated, intubated, doesn't follow commands Eyes : conjunctiva clear, anicteric Pulm : intubated , bilateral crackles Extr : Bilateral pitting edema Skin : turgor normal, no rashes/wounds/lesions Neuro : sedated, doesn't follow commands Data Medications, labs, imaging, and diagnostics independently reviewed in Epic and commented on below. Lab Results Component Value Date TSH 0.80 03/21/2017 Lab Results Component Value Date CHOL 149 06/04/2022 TRIG 253 (H) 06/16/2022 HDL 34 (L) 06/04/2022 LDLCALC 82 06/04/2022 Lab Results Component Value Date 25HYDROVITD 22.7 (L) 03/22/2017 Lab Results Component Value Date HGBA1C 7.8 (H) 06/04/2022 Assessment & Plan 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, with rodent exterminator use of insulin, complicated by ESRD on PD, CAD s/p PCI, CHF - HbA1c 7.4% - Uses Omnipod and Dexcom G6 at home, not currently on this- doesn't have the supplies -On significantly higher basal rates on pump at night due to peritoneal dialysis -home settings: Basal rate 0330 >>1.7 0800 >> 0.8 2000 >> 5.8 ICR1:6.5 ISF1:25 [id number] TIA 4 High insulin requirements in setting acute illness on Levophed (vasopressor) Recommendations: - Continue insulin infusion per protocol (rate = 4.5 units/hr) while on vasopressors - We will help consolidate to basal-bolus insulin when more stable - POC glucoses q1hr while on gtt HOLD following while on gtt - Lantus to 40 units qAM - Humalog 10 units Q4hrs - NPH 15 units at the beginning of PD session - Resistant correctional Humalog q4 hrs - POC glucoses q4hrs Discharge recommendations: - TBD # ESRD on PD - Serum Cr = 4.65 -> 5.16 - CKD and ESRD are independent risk factors for hypoglycemia - Now on insulin gtt (but can give NPH 15 units at the beginning of PD session, if insulin gtt stopped) ## Discharge Planning - Follow-up with home green house manager -- Delmar Longo MD PhD Endocrinology, Metabolism, & Lipid Research Contact Info: New Consults: [phone]) General Endocrine (Non-Diabetes): [phone] (Check 'Treatment Team' assignment for Diabetes 1 vs 2 vs 3) Diabetes 1: Diabetes Fellow: [phone] Diabetes 2: Dora Delarosa, CHIEF AIRLINE RADIO OPERATOR: [phone] Diabetes 3: See Treatment Team Provider (or call Dora Delarosa, above) Diabetes After-Hours & Weekends: Diabetes Fellow * Plan of Care - Jersey Castano, DEFLECTOR OPERATOR - 06/17/2022 12:49 AM CDT Mechanical Ventilation Situation - Patient remains on full support throughout the night. Plan - Continue to monitor, evaluate and wean FIO2 as tolerated. * Consults, Subsequent - James Horvath MD - 06/16/2022 5:58 PM CDT NEPHROLOGY CONSULT SUBSEQUENT VISIT INTERVAL HISTORY: NAEO. Patients switched to PD yesterday. Tolerated it well, but glucose as high as 450. Patient remains intubated and sedated, now requiring versed pushes. REVIEW OF SYSTEMS: Unable to obtain as patient is intubated. OBJECTIVE Vitals: 06/16/22 1500 06/16/22 1501 06/16/22 1600 06/16/22 1700 BP: BP Location: Pulse: 54 54 69 75 Resp: Temp: 37.1 ??C (98.8 ??F) 37.4 ??C (99.3 ??F) 37.4 ??C (99.3 ??F) TempSrc: Skin Skin SpO2: 95% 95% 98% 94% Weight: Height: PHYSICAL EXAM: General: Intubated and sedated Eyes: PERRL. Sclera nonicteric. ENT: MMM. ETT in place. Trialysis line in L neck. Cardiac: Regular rate and rhythm. Pulm: On ventilator. Soft crackles throughout lung charles GI/Abd: Soft, obese, nondistended, BS positive Lymphatic: No significant LAD Extremities: No peripheral cyanosis. Warm extremities 1+ pitting edema. Skin: No rash or bruises Neuro: Sedated on ventilator. PERRL. Date 06/15/22 07 - 06/16/2265806/16/22699 - 06/17/2259 Shift [id number] 24 Hour Total 6400-5465 9347-8842 24 Hour Total INTAKE I.V.(mL/kg) 624.4(5.1) 669(5.4) 1293.4(10.3) 729.7(5.8) 729.7(5.8) Other 1000 88613 99443 NG/GT 275 275 100 100 Shift Total(mL/kg) 1899.4(15.4) 08341(102.8) 34895.4(118) 829.7(6.6) 829.7(6.6) OUTPUT Urine(mL/kg/hr) 0(0) 0(0) 0(0) 0 0 Other 79735 04171 Shift Total(mL/kg) 0(0) 35538(96.7) 71405(96.7) 0(0) 0(0) NET 1899.4 768 2667.4 829.7 829.7 Weight (kg) 123 125 125 125 125 125 LABORATORY DATA: Recent Labs Lab Units 06/16/22 0754 06/16/22 0001 06/15/222050 WBC K/cumm 9.1 11.1* 12.7* HEMOGLOBIN g/dL 7.5* 7.4* 7.2* PLATELETS K/cumm 214 215 204 Recent Labs Lab Units 06/16/22 1257 06/16/22 0754 06/15/22205006/15/22 0806 06/14/22 19406/14/22 0816 06/13/22224806/13/222016 SODIUM mmol/L 137 136 137 134* 138 < > -- 135 POTASSIUM PLASMA mmol/L 3.9 4.2 4.6 5.0* 4.7 < > -- 4.9 CHLORIDE mmol/L 101 100 101 99 102 < > -- 99 CO2 mmol/L 26 26 26 26 27 < > -- 26 BUN SERUM mg/dL 33* 33* 29* 21 17 < > -- 17 CREATININE mg/dL 4.34* 4.13* 3.93* 2.73* 2.22* < > -- 2.21* ALBUMIN g/dL -- 3.1* 3.0* 2.7* 3.1* < > -- 3.0* CALCIUM mg/dL 9.0 8.9 9.5 8.8 9.1 < > -- 8.9 MAGNESIUM mg/dL -- 2.9* 3.2* 2.8* 3.0* < > -- 2.7* PHOSPHORUS PLASMA mg/dL -- -- 5.0* -- 3.1 -- -- 3.1 VANCOMYCIN TR mcg/mL -- -- -- -- -- -- 23.3* -- < > = values in this interval not displayed. Lab Results Component Value Date CALCIUM 9.0 06/16/2022 CAION 4.62 06/07/2022 PHOS 5.0 (H) 06/15/2022 Lab Results Component Value Date IRON 50 06/07/2022 TIBC 130 (L) 06/07/2022 TRANSFERSAT 38 06/07/2022 FERRITIN 2,062 (H) 06/07/2022 CURRENT MEDICATIONS: aspirin, 81 mg, feeding tube, Daily atorvastatin, 80 mg, feeding tube, Daily calcitRIOL, 0.25 mcg, feeding tube, Daily [Held by Provider] calcium acetate(phosphat bind), 667 mg, oral, QID chlorhexidine, 15 mL, mouth/throat, BID [Held by Provider] cloNIDine, 0.1 mg, oral, BID clopidogreL, 75 mg, feeding tube, Daily peritoneal fluid with or without additives for CCPD, , intraperitoneal, Q4H peritoneal fluid with or without additives for CCPD, , intraperitoneal, Q4H docusate, 100 mg, feeding tube, Daily ezetimibe, 10 mg, feeding tube, Daily gentamicin, , topical, Daily [Held by Provider] insulin glargine, 40 Units, subcutaneous, QAM [Held by Provider] insulin lispro, 0-10 Units, subcutaneous, Q4H ASHLEY [Held by Provider] insulin lispro, 10 Units, subcutaneous, Q4H [Held by Provider] insulin NPH, 15 Units, subcutaneous, Nightly [START ON 06/17/2022] meropenem, 1,000 mg, intravenous, Q24H [Held by Provider] nystatin, 500,000 Units, swish & spit, QID pantoprazole, 40 mg, intravenous, BID polyethylene glycol, 17 g, feeding tube, BID senna, 8.8 mg, oral, Nightly vancomycin, 1,750 mg, intravenous, Q24H dexmedeTOMIDine, 0-1.5 mcg/kg/hr, Last Rate: 1.3 mcg/kg/hr (06/16/22 1755) insulin regular, 2 Units/hr, Last Rate: 2 Units/hr (06/16/22 1647) And dextrose 5%, 40 mL/hr fentaNYL, 0-400 mcg/hr, Last Rate: 200 mcg/hr (06/16/22 1600) heparin, 0-33 Units/kg/hr, Last Rate: 10.5 Units/kg/hr (06/16/22 1752) midazolam, 0-12 mg/hr, Last Rate: 0.5 mg/hr (06/16/22 1656) norepinephrine, 0-2 mcg/kg/min (Dosing Weight), Last Rate: 0.05 mcg/kg/min (06/15/22 1150) propofol, 0-50 mcg/kg/min, Last Rate: Stopped (06/15/22 1018) sodium chloride 0.9%, 10 mL/hr, Last Rate: 10 mL/hr (06/12/22 0834) sodium chloride 0.9%, 3-12 mL/hr sodium chloride 0.9%, 3-12 mL/hr, Last Rate: 3 mL/hr (06/16/22 1600) ASSESSMENT AND RECOMMENDATIONS ESRD on PD - Schedule: nightly - last OP HD: 06/03/2022 - Access: Lt LQ PD catheter -Patient has been on CCVHDF since 06/07. Patients access continues clotting, even with systemic anticoagulation. Plan was for patient to be extubated today, but he is not tolerating being off sedation. Concerns for fluid overload still. PD overnight resulted in net positive. -Will attempt to do PD around the clock, with exchanges of 2500 ml 2.5% dianeal every 4 hours -If patient requirs more volumes removal, or more controlled volume removal, he will need a trialysis or a tunneled catheter to do CRRT. Patient seen and discussed with my attending, Dr. Driver 06/16/22 James Horvath MD Nephrology Fellow PGY-4 Consult 1 Service Contact (phone): [phone] After hours and weekends: please page [phone] Cosigned by Miriam Driver MD at 06/16/2022 8:16 PM CDT Associated attestation - Miriam Driver MD - 06/16/2022 8:16 PM CDT I have seen and examined the patient on 06/16/2022. I agree with the findings and plan of care as documented in the nephrology Fellow's note. Restart PD with additional exchanges for more ultrafiltration: 6 exchanges, 2.5%, 2.5L fill volume. Avoiding higher dextrose solutions for now due to hyperglycemia. Miriam Driver MD Biology Department Chair Division of Nephrology * Pre-Procedure Note - Girish Subramanian MD - 06/16/2022 4:03 PM CDT Interventional Radiology Consult Resolution Note Reason for Consult: tunneled hemodialysis catheter placement Assessment and Plan: 51 year old man intubated and sedated in the ICU with need for hemodialysis. IR was consulted for possible tunneled HD catheter placement. Per the ordering provider, the patient will likely be in theICU for an extended period of time. Given this, IR recommend non-tunneled HD catheter placed by theICU team or renal. Once the patient is out of the ICU, if he still needs a tunneled HD catheter, IRcan be re-consulted. As discussed with Dr. Green on June 16, 2022, the prior consult request has been closed and the order cancelled in [facility]. Thank you for the opportunity to participate in this patient's care. If the clinical situation changes, a new consult request will be needed. This consult request was discussed with Dr. Edwards, the IR Attending. Cosigned by Jaylen Edwards MD at 06/16/2022 4:47 PM CDT * Plan of Care - Linda Mccollum LCSW - 06/16/2022 2:14 PM CDT Images from the original note were not included. Per the request of his Dialysis Home Program, I have sent updated notes: Linda Mccollum LCSW. * Consults, Subsequent - Sandrine Myers MD - 06/16/2022 12:28 PM CDT Pulmonary Daily Progress Subjective Chief complaint of respiratory failure. Interval History: Febrile overnight, transitioned to PD yesterday with removal of LIJ dialysis line. FiO2 increased to 50% from 40% with PEEP unchanged at 8. No significant increase in secretions. Scheduled Meds:aspirin, 81 mg, feeding tube, Daily atorvastatin, 80 mg, feeding tube, Daily calcitRIOL, 0.25 mcg, feeding tube, Daily [Held by Provider] calcium acetate(phosphat bind), 667 mg, oral, QID chlorhexidine, 15 mL, mouth/throat, BID [Held by Provider] cloNIDine, 0.1 mg, oral, BID clopidogreL, 75 mg, feeding tube, Daily docusate, 100 mg, feeding tube, Daily ezetimibe, 10 mg, feeding tube, Daily gentamicin, , topical, Daily insulin glargine, 33 Units, subcutaneous, QAM insulin lispro, 0-10 Units, subcutaneous, Q4H ASHLEY insulin lispro, 7 Units, subcutaneous, Q4H meropenem, 1,000 mg, intravenous, Q12H ASHLEY [Held by Provider] nystatin, 500,000 Units, swish & spit, QID pantoprazole, 40 mg, intravenous, BID polyethylene glycol, 17 g, feeding tube, BID senna, 8.8 mg, oral, Nightly vancomycin, 1,750 mg, intravenous, Q24H Continuous Infusions:dexmedeTOMIDine, 0-1.5 mcg/kg/hr, Last Rate: 1.3 mcg/kg/hr (06/16/22 1200) fentaNYL, 0-400 mcg/hr, Last Rate: 200 mcg/hr (06/16/22 1200) heparin, 0-33 Units/kg/hr, Last Rate: 9.5 Units/kg/hr (06/16/22 1200) norepinephrine, 0-2 mcg/kg/min (Dosing Weight), Last Rate: 0.05 mcg/kg/min (06/15/22 1150) propofol, 0-50 mcg/kg/min, Last Rate: Stopped (06/15/22 1018) sodium chloride 0.9%, 10 mL/hr, Last Rate: 10 mL/hr (06/12/22 0834) sodium chloride 0.9%, 3-12 mL/hr sodium chloride 0.9%, 3-12 mL/hr, Last Rate: 3 mL/hr (06/16/22 1200) PRN Meds:. acetaminophen albuterol HFA bisacodyL bisacodyl EC dextrose OR dextrose dextrose 5% water dextrose 5% water fentaNYL fentaNYL fluticasone propionate glucagon heparin OR heparin lidocaine midazolam ondansetron ODT OR ondansetron phenoL polyethylene glycol ramelteon I/O last 2 completed shifts: In: 90941.4 [I.V.:1293.4; Other:98823; NG/GT:275] Out: 15372 [Other:21268] Objective Vitals: Vitals: 06/16/221199 BP: Pulse: 81 Resp: 22 Temp: 36.9 ??C (98.4 ??F) SpO2: 97% Physical Exam: Constitutional: Intubated, sedated, RASS -2 Head: ETT in place Cardiac: Regular rate, regular rhythm. No murmurs Resp: Clear to auscultation bilaterally. No wheezes, rhonchi, or rales. Vent AC/VC 500/20/50%/8, plateau pressure remains ~20 Abdomen: Soft. Obese, non distended. Extremities: +Peripheral edema though improved, no cyanosis Data: I have reviewed labs from last 24 hours. Pertinent findings include: WBC stable 11.1, BCx 06/15 NGTD, AM ABG 7.40/38/66/24 Recent Results (from the past 24 hour(s)) POCT glucose Collection Time: 06/15/22 3:21 PM Result Value Ref Range Glucose, POC 260 (H) 70 - 199 mg/dL C. difficile testing Stool Collection Time: 06/15/22 6:15 PM Specimen: Stool Result Value Ref Range C. diff result Negative, free toxin Negative, free toxin C. diff interp Negative for toxigenic Clostridioides (Clostridium) difficile. Analysis was performed using a glutatmate dehydrogenase antigen detection assay combined with a C. difficile toxin detection assay. POCT glucose Collection Time: 06/15/22 8:49 PM Result Value Ref Range Glucose, POC 183 70 - 199 mg/dL CBC with auto differential Collection Time: 06/15/22 8:51 PM Result Value Ref Range WBC 12.7 (H) 3.8 - 9.9 K/cumm Hgb 7.2 (L) 13.0 - 17.5 g/dL Hct 21.9 (L) 38.9 - 50.3 % Plt 204 150 - 400 K/cumm MPV 10.4 9.1 - 12.3 fL RBC 2.30 (L) 4.30 - 5.80 M/cumm MCV 95.2 81.3 - 96.4 fL MCH 31.3 27.1 - 33.3 pg MCHC 32.9 32.3 - 35.7 g/dL RDW CV 14.6 11.1 - 14.9 % RDW SD 47.4 35.7 - 48.1 fL NRBC abs 0.05 (H) 0.00 - 0.01 K/cumm Comprehensive metabolic panel Collection Time: 06/15/22 8:51 PM Result Value Ref Range Sodium 137 135 - 145 mmol/L Potassium, pl 4.6 3.3 - 4.9 mmol/L Chloride 101 97 - 110 mmol/L CO2 26 22 - 32 mmol/L Anion gap 10 2 - 15 mmol/L BUN 29 (H) 8 - 25 mg/dL Creatinine 3.93 (H) 0.80 - 1.30 mg/dL Glucose 179 70 - 199 mg/dL Calcium 9.5 8.5 - 10.3 mg/dL Bilirubin, total 0.5 0.1 - 1.2 mg/dL Protein, pl 6.5 6.5 - 8.5 g/dL Albumin 3.0 (L) 3.5 - 5.0 g/dL Alk phos 235 (H) 40 - 130 Units/L ALT 36 7 - 55 Units/L AST 50 10 - 50 Units/L Magnesium Collection Time: 06/15/22 8:51 PM Result Value Ref Range Magnesium 3.2 (H) 1.4 - 2.5 mg/dL Lipase Collection Time: 06/15/22 8:51 PM Result Value Ref Range Lipase 27 10 - 99 Units/L Beta-hydroxybutyrate Collection Time: 06/15/22 8:51 PM Result Value Ref Range Beta-Hydroxybutyrate 0.2 0.0 - 0.5 mmol/L Phosphorus Collection Time: 06/15/22 8:51 PM Result Value Ref Range Phosphorus, pl 5.0 (H) 2.3 - 4.5 mg/dL Triglycerides Collection Time: 06/15/22 8:51 PM Result Value Ref Range Triglycerides 227 (H) <=149 mg/dL Differential, auto Collection Time: 06/15/22 8:51 PM Result Value Ref Range Neutrophil abs 8.6 (H) 1.7 - 6.5 K/cumm Imm gran abs 0.8 (H) 0.0 - 0.1 K/cumm Lymphocyte abs 1.4 0.8 - 3.3 K/cumm Monocyte abs 1.7 (H) 0.2 - 0.8 K/cumm Eosinophil abs 0.2 0.0 - 0.5 K/cumm Basophil abs 0.0 0.0 - 0.1 K/cumm Neutrophil pct 67.7 % Imm gran pct 6.1 % Lymphocyte pct 11.2 % Monocyte pct 13.3 % Eosinophil pct 1.5 % Basophil pct 0.2 % eGFR Collection Time: 06/15/22 8:51 PM Result Value Ref Range eGFR 17 (L) 90 - 130 mL/min/1.73 m2 CBC without differential Collection Time: 06/16/22 12:01 AM Result Value Ref Range WBC 11.1 (H) 3.8 - 9.9 K/cumm Hgb 7.4 (L) 13.0 - 17.5 g/dL Hct 22.6 (L) 38.9 - 50.3 % Plt 215 150 - 400 K/cumm MPV 10.3 9.1 - 12.3 fL RBC 2.38 (L) 4.30 - 5.80 M/cumm MCV 95.0 81.3 - 96.4 fL MCH 31.1 27.1 - 33.3 pg MCHC 32.7 32.3 - 35.7 g/dL RDW CV 14.4 11.1 - 14.9 % RDW SD 46.4 35.7 - 48.1 fL NRBC abs 0.05 (H) 0.00 - 0.01 K/cumm aPTT Collection Time: 06/16/22 12:01 AM Result Value Ref Range aPTT 53 (H) 27 - 37 sec POCT glucose Collection Time: 06/16/22 12:01 AM Result Value Ref Range Glucose, POC 239 (H) 70 - 199 mg/dL POCT glucose Collection Time: 06/16/22 4:52 AM Result Value Ref Range Glucose, POC 425 (H) 70 - 199 mg/dL POCT glucose Collection Time: 06/16/22 7:52 AM Result Value Ref Range Glucose, POC 408 (H) 70 - 199 mg/dL CBC with auto differential Collection Time: 06/16/22 7:54 AM Result Value Ref Range WBC 9.1 3.8 - 9.9 K/cumm Hgb 7.5 (L) 13.0 - 17.5 g/dL Hct 22.8 (L) 38.9 - 50.3 % Plt 214 150 - 400 K/cumm MPV 10.1 9.1 - 12.3 fL RBC 2.42 (L) 4.30 - 5.80 M/cumm MCV 94.2 81.3 - 96.4 fL MCH 31.0 27.1 - 33.3 pg MCHC 32.9 32.3 - 35.7 g/dL RDW CV 14.6 11.1 - 14.9 % RDW SD 46.9 35.7 - 48.1 fL NRBC abs 0.02 (H) 0.00 - 0.01 K/cumm Comprehensive metabolic panel Collection Time: 06/16/22 7:54 AM Result Value Ref Range Sodium 136 135 - 145 mmol/L Potassium, pl 4.2 3.3 - 4.9 mmol/L Chloride 100 97 - 110 mmol/L CO2 26 22 - 32 mmol/L Anion gap 10 2 - 15 mmol/L BUN 33 (H) 8 - 25 mg/dL Creatinine 4.13 (H) 0.80 - 1.30 mg/dL Glucose 434 (H) 70 - 199 mg/dL Calcium 8.9 8.5 - 10.3 mg/dL Bilirubin, total 0.4 0.1 - 1.2 mg/dL Protein, pl 6.2 (L) 6.5 - 8.5 g/dL Albumin 3.1 (L) 3.5 - 5.0 g/dL Alk phos 218 (H) 40 - 130 Units/L ALT 36 7 - 55 Units/L AST 42 10 - 50 Units/L Magnesium Collection Time: 06/16/22 7:54 AM Result Value Ref Range Magnesium 2.9 (H) 1.4 - 2.5 mg/dL Blood gas, arterial Collection Time: 06/16/22 7:54 AM Result Value Ref Range pH, Art 7.44 7.35 - 7.45 PCO2, Arterial 35 35 - 45 mmHg PO2, Arterial 58 (L) 83 - 108 mmHg HCO3 Art (Calculated) 25 20 - 30 mmol/L BE, art 0 mmol/L O2 Sat Art (Measured) 90 90 - 95 % Differential, auto Collection Time: 06/16/22 7:54 AM Result Value Ref Range Neutrophil abs 6.3 1.7 - 6.5 K/cumm Imm gran abs 0.4 (H) 0.0 - 0.1 K/cumm Lymphocyte abs 1.0 0.8 - 3.3 K/cumm Monocyte abs 1.2 (H) 0.2 - 0.8 K/cumm Eosinophil abs 0.2 0.0 - 0.5 K/cumm Basophil abs 0.0 0.0 - 0.1 K/cumm Neutrophil pct 69.4 % Imm gran pct 4.3 % Lymphocyte pct 11.0 % Monocyte pct 13.3 % Eosinophil pct 1.7 % Basophil pct 0.3 % eGFR Collection Time: 06/16/22 7:54 AM Result Value Ref Range eGFR 16 (L) 90 - 130 mL/min/1.73 m2 Beta-hydroxybutyrate Collection Time: 06/16/22 7:54 AM Result Value Ref Range Beta-Hydroxybutyrate 0.1 0.0 - 0.5 mmol/L aPTT Collection Time: 06/16/22 9:14 AM Result Value Ref Range aPTT 54 (H) 27 - 37 sec POCT glucose Collection Time: 06/16/22 10:50 AM Result Value Ref Range Glucose, POC 393 (H) 70 - 199 mg/dL Blood gas, arterial Collection Time: 06/16/22 10:54 AM Result Value Ref Range pH, Art 7.40 7.35 - 7.45 PCO2, Arterial 38 35 - 45 mmHg PO2, Arterial 66 (L) 83 - 108 mmHg HCO3 Art (Calculated) 24 20 - 30 mmol/L BE, art -1 mmol/L O2 Sat Art (Measured) 92 90 - 95 % I have reviewed radiology images from last 24 hours: Pertinent findings include: CXR AM 06/16: ETT approximately 6.5cm from boni, unchanged bibasilar atelectasis with low lung volumes per my read Assessment/Plan Acute hypoxemic respiratory failure (HCC) Assessment & Plan Mr. Garvin is a 51 y/o M with medical history most significant for CAD, DM1, ESRD on PD, initially presenting for complex PCI, found to have cholecystitis, now in CCU with cardiogenic shock. Pulmonary is consulted for hypoxemic respiratory failure. Problem List: - Acute hypoxemic respiratory failure, secondary to cardiogenic pulmonary edema, atelectasis - Cardiogenic shock, NSTEMI s/p complex PCI, impella - BEN on home CPAP - Acute cholecystitis, meropenem/vancomycin Acute hypoxemic respiratory failure initially with a component of cardiogenic pulmonary edema, though now most likely secondary to lower lobe atelectasis with increase in FiO2 potentially related to transition to PD and its effect on respiratory mechanics. Given this, PD may not be the optimal long-term strategy from a pulmonary perspective. No significant change in respiratory secretions, thoughwould continue Vest therapy. Would continue to lighten sedation and consider PSV trials once he is hemodynamically stable without fevers. Recommendations: --Continue to wean sedation and consider PSV trials once hemodynamically stable, afebrile --Consider advancement of ETT by 2-3cm --Continue IPV to assist with mucous clearance --Continue diuresis/volume removal as tolerated --Continue lung protective ventilation keeping plat pressures < 30, PEEP 8 --Continue antibiotics per primary team Pulmonary will continue to follow. Please call manager field investigations pulmonary consult fellow with additional questions or concerns. Sandrine Myers MD Pulmonary and Critical Care, PGY-4 Cosigned by Girish Grant MD at 06/16/2022 3:51 PM CDT Associated attestation - Girish Grant MD - 06/16/2022 3:51 PM CDT I have seen and examined the patient on 06/16/22. I agree with the findings and plan of care as documented in the resident's/fellow's note. and as discussed with the resident/fellow.. * Consults, Subsequent - Kellee Magallanes MD - 06/16/2022 12:28 PM CDT Endocrinology & Diabetes Progress Note Patient: Adelia Garvin Jr., 51 y.o. male (: 1970) Room: [place] [address] ( ) LOS: 12 Adelia Garvin Jr. is a 51 y.o. male with PMHx CHF (EF 50% in 2017), atrial fibrillation not on OAC, HTN/HLD, CAD s/p PCI, ESRD on PD, hyperparathyroidism presenting with weakness, N/V, diarrhea and chest pain. He is scheduled for C on 06/06. Diabetes service consulted for T1DM on insulin pump. Interval Events & Subjective He is still sedated intubated On TF at rate 30 ml/hr On PD overnight BG readings are 300-400's Diet: No diet orders on file Recent Labs Lab Units 06/16/22 1050 06/16/22 0754 06/16/22 0752 06/16/22 0452 06/16/22 0001 06/15/22205006/15/22 2049 06/15/22 1521 06/15/22 1120 06/15/22 0821 GLUCOSE mg/dL -- 434* -- -- -- 179 -- -- -- -- POC GLUCOSE MONITOR mg/dL 393* -- 408* 425* 239* -- 183 260* 332* 260* Interval Review of Systems Twelve point ROS reviewed and negative except as noted in HPI. All other systems negative. Vitals & Exam Temp: [36 ??C (96.8 ??F)-37.5 ??C (99.5 ??F)] 36.9 ??C (98.4 ??F) Pulse: [53-87] 81 Resp: [18-22] 22 SpO2: [91 %-97 %] 97 % Arterial Line BP: (111-164)/(38-61) 156/57 FiO2 (%): [50 %-70 %] 60 % I/O this shift: In: 566.2 [I.V.:466.2; NG/GT:100] Out: 0 Physical Exam Gen : sedated, intubated, doesn't follow commands Eyes : conjunctiva clear, anicteric Pulm : intubated , bilateral crackles Extr : Bilateral pitting edema Skin : turgor normal, no rashes/wounds/lesions Neuro : sedated, doesn't follow commands Data Medications, labs, imaging, and diagnostics independently reviewed in Epic and commented on below. Lab Results Component Value Date TSH 0.80 03/21/2017 Lab Results Component Value Date CHOL 149 06/04/2022 TRIG 227 (H) 06/15/2022 HDL 34 (L) 06/04/2022 LDLCALC 82 06/04/2022 Lab Results Component Value Date 25HYDROVITD 22.7 (L) 03/22/2017 Lab Results Component Value Date HGBA1C 7.8 (H) 06/04/2022 Assessment & Plan 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, with prison use of insulin, complicated by ESRD on PD, CAD s/p PCI, CHF - HbA1c 7.4% - Uses Omnipod and Dexcom G6 at home, not currently on this- doesn't have the supplies -On significantly higher basal rates on pump at night due to peritoneal dialysis -home settings: Basal rate 0330 >>1.7 0800 >> 0.8 2000 >> 5.8 ICR1:6.5 ISF1:25 VIG523 TIA 4 Currently on TF Glucerna 1.5 ( CHO 133) Recommendations: - please increase Lantus to 40 units qAM - Humalog 10 units Q4hrs - NPH 15 units at the beginning of PD session - Resistant correctional Humalog q4 hrs - POC glucoses q4hrs Discharge recommendations: - TBD ## Discharge Planning - Follow-up with home green house manager -- Kellee Magallanes MD Endocrinology, Metabolism, & Lipid Research Contact Info: New Consults: [phone]) General Endocrine (Non-Diabetes): [phone] (Check 'Treatment Team' assignment for Diabetes 1 vs 2 vs 3) Diabetes 1: Diabetes Fellow: [phone] Diabetes 2: Dora Delarosa, CHIEF AIRLINE RADIO OPERATOR: [phone] Diabetes 3: See Treatment Team Provider (or call Dora Delarosa, above) Diabetes After-Hours & Weekends: Diabetes Fellow Cosigned by Bryce Langley MD at 06/16/2022 1:27 PM CDT Associated attestation - Bryce Langley MD - 06/16/2022 1:27 PM CDT I have seen and examined the patient on 06/16/22. I agree with the findings and plan of care as documented in the resident's/fellow's note.. and I spent a total of 25 minutes of which more than 50% of the time was spent in counseling and coordination of care. This time included review of the patient's chart, glucose flowsheet, recent laboratory data and bedside visit to the patient. Bryce Langley MD, [facility] Biology Department Chairpublishing systems analyst Division of Endocrinology, Metabolism & Lipid Research * Plan of Care - Ravi Hollingsworth RN - 06/16/2022 11:48 AM CDT Clinical Goals for the Shift: Monitor VS, pain control , adequate turn ,comfort and rest Problem: Health Behavior: Goal: Understanding of discharge needs will improve Outcome: Progressing Problem: Lack of Knowledge: Goal: Ability to state ways to decrease the risk of falls will improve Outcome: Progressing Problem: Safety: Goal: Will remain free from falls Outcome: Progressing Goal: Will remain free from injury from falls Outcome: Progressing Goal: Will remain free from falls and injury in home environment Outcome: Progressing Problem: Lack of Knowledge: Goal: Knowledge of disease or condition and prescribed therapeutic regimen will improve Outcome: Progressing Problem: Coping: Goal: Level of anxiety will decrease Outcome: Progressing Problem: Sensory: Goal: Pain level will decrease Outcome: Progressing Problem: Lack of Knowledge: Goal: Ability to describe self-care measures that may prevent or decrease complications will improve Outcome: Progressing Goal: Knowledge of disease or condition will improve Outcome: Progressing Goal: Knowledge of the prescribed therapeutic regimen will improve Outcome: Progressing Goal: Knowledge of prevention and discharge planning will improve Outcome: Progressing Problem: Coping: Goal: Ability to adjust to condition or change in health will improve Outcome: Progressing Problem: Fluid Volume: Goal: Ability to maintain a balanced intake and output will improve Outcome: Progressing Problem: Health Behavior: Goal: Ability to identify and alter actions that are detrimental to health will improve Outcome: Progressing Goal: Ability to identify and utilize available resources and services will improve Outcome: Progressing Goal: Ability to manage health-related needs will improve Outcome: Progressing Problem: Nutritional: Goal: Maintenance of adequate nutrition will improve Outcome: Progressing Goal: Progress toward achieving an optimal weight will improve Outcome: Progressing Problem: Physical Regulation: Goal: Complications related to the disease process, condition or treatment will be avoided or minimized Outcome: Progressing Goal: Diagnostic test results will improve Outcome: Progressing Problem: Skin Integrity: Goal: Risk for impaired skin integrity will decrease Outcome: Progressing Problem: Lack of Knowledge: Goal: Ability to develop a pain control plan will improve Outcome: Progressing Goal: Ability to identify pain intensity on a pain scale and rate it consistently will improve Outcome: Progressing Goal: Ability to notify healthcare provider of pain before it becomes unmanageable or unbearable will improve Outcome: Progressing Problem: Medication: Goal: Satisfaction with pain management regimen will improve Outcome: Progressing Problem: Sensory: Goal: Ability to identify factors that increase the pain will improve Outcome: Progressing Goal: Pain level will decrease Outcome: Progressing Problem: Lack of Knowledge: Goal: Ability to develop a pain control plan will improve Outcome: Progressing Goal: Ability to identify pain intensity on a pain scale and rate it consistently will improve Outcome: Progressing Goal: Ability to notify healthcare provider of pain before it becomes unmanageable or unbearable will improve Outcome: Progressing Problem: Medication: Goal: Satisfaction with pain management regimen will improve Outcome: Progressing Problem: Sensory: Goal: Ability to identify factors that increase the pain will improve Outcome: Progressing Goal: Pain level will decrease Outcome: Progressing Problem: Activity: Goal: Ability to return to normal activity level will improve Outcome: Progressing Problem: Lack of Knowledge: Goal: Knowledge of the prescribed therapeutic regimen will improve Outcome: Progressing Problem: Coping: Goal: Ability to cope will improve Outcome: Progressing Problem: Health Behavior: Goal: Identification of resources available to assist in meeting health care needs will improve Outcome: Progressing Problem: Sensory: Goal: Pain level will decrease Outcome: Progressing Problem: Cardiac: Goal: Ability to maintain an adequate cardiac output will improve Outcome: Progressing Goal: Hemodynamic stability will improve Outcome: Progressing Problem: Lack of Knowledge: Goal: Ability to state signs and symptoms to report to health care provider will improve Outcome: Progressing Goal: Knowledge of the prescribed therapeutic regimen will improve Outcome: Progressing Goal: Mental status will improve Outcome: Progressing Problem: Fluid Volume: Goal: Ability to achieve and maintain adequate urine output will improve Outcome: Progressing Problem: Respiratory: Goal: Respiratory status will improve Outcome: Progressing Problem: Lack of Knowledge: Goal: Verbalization of understanding the information provided will improve Outcome: Progressing * Plan of Gayathri - Neymar Chiu RN - 06/16/2022 6:00 AM CDT Goals: Clinical Goals for the Shift: Monitor VS, pain control , adequate turn ,comfort and rest Summary Problem: Health Behavior: Goal: Understanding of discharge needs will improve Outcome: Progressing Problem: Lack of Knowledge: Goal: Ability to state ways to decrease the risk of falls will improve Outcome: Progressing Problem: Safety: Goal: Will remain free from falls Outcome: Progressing Goal: Will remain free from injury from falls Outcome: Progressing Goal: Will remain free from falls and injury in home environment Outcome: Progressing Problem: Lack of Knowledge: Goal: Knowledge of disease or condition and prescribed therapeutic regimen will improve Outcome: Progressing Problem: Coping: Goal: Level of anxiety will decrease Outcome: Progressing Problem: Sensory: Goal: Pain level will decrease Outcome: Progressing Problem: Lack of Knowledge: Goal: Ability to describe self-care measures that may prevent or decrease complications will improve Outcome: Progressing Goal: Knowledge of disease or condition will improve Outcome: Progressing Goal: Knowledge of the prescribed therapeutic regimen will improve Outcome: Progressing Goal: Knowledge of prevention and discharge planning will improve Outcome: Progressing Problem: Coping: Goal: Ability to adjust to condition or change in health will improve Outcome: Progressing Problem: Fluid Volume: Goal: Ability to maintain a balanced intake and output will improve Outcome: Progressing Problem: Health Behavior: Goal: Ability to identify and alter actions that are detrimental to health will improve Outcome: Progressing Goal: Ability to identify and utilize available resources and services will improve Outcome: Progressing Goal: Ability to manage health-related needs will improve Outcome: Progressing Problem: Nutritional: Goal: Maintenance of adequate nutrition will improve Outcome: Progressing Goal: Progress toward achieving an optimal weight will improve Outcome: Progressing Problem: Physical Regulation: Goal: Complications related to the disease process, condition or treatment will be avoided or minimized Outcome: Progressing Goal: Diagnostic test results will improve Outcome: Progressing Problem: Skin Integrity: Goal: Risk for impaired skin integrity will decrease Outcome: Progressing Problem: Lack of Knowledge: Goal: Ability to develop a pain control plan will improve Outcome: Progressing Goal: Ability to identify pain intensity on a pain scale and rate it consistently will improve Outcome: Progressing Goal: Ability to notify healthcare provider of pain before it becomes unmanageable or unbearable will improve Outcome: Progressing Problem: Medication: Goal: Satisfaction with pain management regimen will improve Outcome: Progressing Problem: Sensory: Goal: Ability to identify factors that increase the pain will improve Outcome: Progressing Goal: Pain level will decrease Outcome: Progressing Problem: Activity: Goal: Ability to return to normal activity level will improve Outcome: Progressing Problem: Lack of Knowledge: Goal: Knowledge of the prescribed therapeutic regimen will improve Outcome: Progressing Problem: Coping: Goal: Ability to cope will improve Outcome: Progressing Problem: Health Behavior: Goal: Identification of resources available to assist in meeting health care needs will improve Outcome: Progressing Problem: Sensory: Goal: Pain level will decrease Outcome: Progressing Problem: Cardiac: Goal: Ability to maintain an adequate cardiac output will improve Outcome: Progressing Goal: Hemodynamic stability will improve Outcome: Progressing Problem: Lack of Knowledge: Goal: Ability to state signs and symptoms to report to health care provider will improve Outcome: Progressing Goal: Knowledge of the prescribed therapeutic regimen will improve Outcome: Progressing Goal: Mental status will improve Outcome: Progressing Problem: Fluid Volume: Goal: Ability to achieve and maintain adequate urine output will improve Outcome: Progressing Problem: Respiratory: Goal: Respiratory status will improve Outcome: Progressing Problem: Lack of Knowledge: Goal: Verbalization of understanding the information provided will improve Outcome: Progressing Problem: Lack of Knowledge: Goal: Ability to develop a pain control plan will improve Outcome: Progressing Goal: Ability to identify pain intensity on a pain scale and rate it consistently will improve Outcome: Progressing Goal: Ability to notify healthcare provider of pain before it becomes unmanageable or unbearable will improve Outcome: Progressing Problem: Medication: Goal: Satisfaction with pain management regimen will improve Outcome: Progressing Problem: Sensory: Goal: Ability to identify factors that increase the pain will improve Outcome: Progressing Goal: Pain level will decrease Outcome: Progressing * Plan of Care - Juanito Hernandez RRT - 06/15/2022 10:13 PM CDT Patient was able to get 5 mins of IPV chest CPT however he became agitated and began pulling at et tube. Will switch to vest for next treatment. * Consults, Subsequent - James Horvath MD - 06/15/2022 6:49 PM CDT NEPHROLOGY CONSULT SUBSEQUENT VISIT INTERVAL HISTORY: NAEO. Patients CVVHDF continues to clot, seems to be an access issues given high pressures. REVIEW OF SYSTEMS: Unable to obtain as patient is intubated. OBJECTIVE Vitals: 06/15/22 1500 06/15/22 1600 06/15/22 1700 06/15/22 1800 BP: BP Location: Pulse: 62 59 68 62 Resp: 20 20 20 20 Temp: 38.1 ??C (100.6 ??F) 37.6 ??C (99.7 ??F) 36.9 ??C (98.4 ??F) 36.4 ??C (97.5 ??F) TempSrc: Skin Skin Skin Skin SpO2: (!) 89% 91% 93% 95% Weight: Height: PHYSICAL EXAM: General: Intubated and sedated Eyes: PERRL. Sclera nonicteric. ENT: MMM. ETT in place. Trialysis line in L neck. Cardiac: Regular rate and rhythm. Pulm: On ventilator. Soft crackles throughout lung charles GI/Abd: Soft, obese, nondistended, BS positive Lymphatic: No significant LAD Extremities: No peripheral cyanosis. Warm extremities 1+ pitting edema. Skin: No rash or bruises Neuro: Sedated on ventilator. PERRL. Date 06/14/22699 - 06/15/2265806/15/22699 - 06/16/22 0659 Shift 6728-3787 5812-0053 24 Hour Total 6782-5616 7312-8984 24 Hour Total INTAKE I.V.(mL/kg) 520.5(4) 498.9(4.1) 1019.4(8.3) 624.4(5.1) 624.4(5.1) NG/GT 110 495 8414 275 275 Shift Total(mL/kg) 905.5(7) 1278.9(10.4) 2184.4(17.8) 899.4(7.3) 899.4(7.3) OUTPUT Urine(mL/kg/hr) 8(0) 0(0) 8(0) 0 0 Other 2248 695 2943 Stool 160 160 Shift Total(mL/kg) 2256(17.5) 855(7) 3111(25.3) 0(0) 0(0) NET -1350.5 423.9 -926.6 899.4 899.4 Weight (kg) 128.8 123 123 123 123 123 LABORATORY DATA: Recent Labs Lab Units 06/15/22 0806 06/14/22 19406/14/22 0816 WBC K/cumm 13.2* 15.0* 15.7* HEMOGLOBIN g/dL 7.7* 8.3* 8.3* PLATELETS K/cumm 228 218 217 Recent Labs Lab Units 06/15/22 0806 06/14/22 1941 06/14/22 0816 06/13/22 2249 06/13/22201606/13/22 0933 06/12/22 2047 SODIUM mmol/L 134* 138 134* -- 135 < > 134* POTASSIUM PLASMA mmol/L 5.0* 4.7 4.7 -- 4.9 < > 5.1* CHLORIDE mmol/L 99 102 100 -- 99 < > 101 CO2 mmol/L 26 27 25 -- 26 < > 24 BUN SERUM mg/dL 21 17 16 -- 17 < > 19 CREATININE mg/dL 2.73* 2.22* 2.19* -- 2.21* < > 2.22* ALBUMIN g/dL 2.7* 3.1* 3.1* -- 3.0* < > 2.7* CALCIUM mg/dL 8.8 9.1 9.5 -- 8.9 < > 8.7 MAGNESIUM mg/dL 2.8* 3.0* 2.9* -- 2.7* < > 2.7* PHOSPHORUS PLASMA mg/dL -- 3.1 -- -- 3.1 -- 3.5 VANCOMYCIN TR mcg/mL -- -- -- 23.3* -- -- -- < > = values in this interval not displayed. Lab Results Component Value Date CALCIUM 8.8 06/15/2022 CAION 4.62 06/07/2022 PHOS 3.1 06/14/2022 Lab Results Component Value Date IRON 50 06/07/2022 TIBC 130 (L) 06/07/2022 TRANSFERSAT 38 06/07/2022 FERRITIN 2,062 (H) 06/07/2022 CURRENT MEDICATIONS: aspirin, 81 mg, feeding tube, Daily atorvastatin, 80 mg, feeding tube, Daily calcitRIOL, 0.25 mcg, feeding tube, Daily [Held by Provider] calcium acetate(phosphat bind), 667 mg, oral, QID chlorhexidine, 15 mL, mouth/throat, BID [Held by Provider] cloNIDine, 0.1 mg, oral, BID clopidogreL, 75 mg, feeding tube, Daily docusate, 100 mg, feeding tube, Daily ezetimibe, 10 mg, feeding tube, Daily gentamicin, , topical, Daily insulin glargine, 33 Units, subcutaneous, QAM insulin lispro, 0-10 Units, subcutaneous, Q4H ASHLEY insulin lispro, 7 Units, subcutaneous, Q4H meropenem, 1,000 mg, intravenous, Q12H ASHLEY [Held by Provider] nystatin, 500,000 Units, swish & spit, QID pantoprazole, 40 mg, intravenous, BID polyethylene glycol, 17 g, feeding tube, BID senna, 8.8 mg, oral, Nightly vancomycin, 1,750 mg, intravenous, Q24H dexmedeTOMIDine, 0-1.5 mcg/kg/hr, Last Rate: 1.5 mcg/kg/hr (06/15/22 1831) peritoneal fluid with or without additives for CCPD, peritoneal fluid with or without additives for CCPD, peritoneal fluid with or without additives for CCPD, peritoneal fluid with or without additives for CCPD, fentaNYL, 0-400 mcg/hr, Last Rate: 200 mcg/hr (06/15/22 1800) heparin, 0-33 Units/kg/hr, Last Rate: 7.5 Units/kg/hr (06/15/22 1800) norepinephrine, 0-2 mcg/kg/min (Dosing Weight), Last Rate: 0.05 mcg/kg/min (06/15/22 1150) propofol, 0-50 mcg/kg/min, Last Rate: Stopped (06/15/22 1018) sodium chloride 0.9%, 10 mL/hr, Last Rate: 10 mL/hr (06/12/22 0834) sodium chloride 0.9%, 3-12 mL/hr sodium chloride 0.9%, 3-12 mL/hr, Last Rate: 3 mL/hr (06/15/22 1700) ASSESSMENT AND RECOMMENDATIONS ESRD on PD - Schedule: nightly - last OP HD: 06/03/2022 - Access: Lt LQ PD catheter -Patient has been on CCVHDF since 06/07. Patients access continues clotting, even with systemic anticoagulation. Unable to have femoral trialysis placed as patient will be likely extubated tomorrow, and will need to be sitting up. -We will resume CCPD today for clearance and volume removal. Patient seen and discussed with my attending, Dr. Driver 06/15/22 James Horvath MD Nephrology Fellow PGY-4 Consult 1 Service Contact (phone): [phone] After hours and weekends: please page [phone] Cosigned by Miriam Driver MD at 06/15/2022 7:33 PM CDT Associated attestation - Miriam Driver MD - 06/15/2022 7:33 PM CDT I have seen and examined the patient on 06/15/2022. I agree with the findings and plan of care as documented in the nephrology Fellow's note. Miriam Driver MD Biology Department Chair Division of Nephrology * Plan of Care - Wandy Maradiaga RN - 06/14/2022 10:47 PM CDT Goals: Clinical Goals for the Shift: monitor hemodynamics, labs, I&O's, wean ventilator and sedation Summary: Problem: Health Behavior: Goal: Understanding of discharge needs will improve Outcome: Progressing Problem: Lack of Knowledge: Goal: Ability to state ways to decrease the risk of falls will improve Outcome: Progressing Problem: Safety: Goal: Will remain free from falls Outcome: Progressing Goal: Will remain free from injury from falls Outcome: Progressing Goal: Will remain free from falls and injury in home environment Outcome: Progressing Problem: Lack of Knowledge: Goal: Knowledge of disease or condition and prescribed therapeutic regimen will improve Outcome: Progressing Problem: Coping: Goal: Level of anxiety will decrease Outcome: Progressing Problem: Sensory: Goal: Pain level will decrease Outcome: Progressing Problem: Lack of Knowledge: Goal: Ability to describe self-care measures that may prevent or decrease complications will improve Outcome: Progressing Goal: Knowledge of disease or condition will improve Outcome: Progressing Goal: Knowledge of the prescribed therapeutic regimen will improve Outcome: Progressing Goal: Knowledge of prevention and discharge planning will improve Outcome: Progressing Problem: Coping: Goal: Ability to adjust to condition or change in health will improve Outcome: Progressing Problem: Fluid Volume: Goal: Ability to maintain a balanced intake and output will improve Outcome: Progressing Problem: Health Behavior: Goal: Ability to identify and alter actions that are detrimental to health will improve Outcome: Progressing Goal: Ability to identify and utilize available resources and services will improve Outcome: Progressing Goal: Ability to manage health-related needs will improve Outcome: Progressing Problem: Nutritional: Goal: Maintenance of adequate nutrition will improve Outcome: Progressing Goal: Progress toward achieving an optimal weight will improve Outcome: Progressing Problem: Physical Regulation: Goal: Complications related to the disease process, condition or treatment will be avoided or minimized Outcome: Progressing Goal: Diagnostic test results will improve Outcome: Progressing Problem: Skin Integrity: Goal: Risk for impaired skin integrity will decrease Outcome: Progressing Problem: Lack of Knowledge: Goal: Ability to develop a pain control plan will improve Outcome: Progressing Goal: Ability to identify pain intensity on a pain scale and rate it consistently will improve Outcome: Progressing Goal: Ability to notify healthcare provider of pain before it becomes unmanageable or unbearable will improve Outcome: Progressing Problem: Medication: Goal: Satisfaction with pain management regimen will improve Outcome: Progressing Problem: Sensory: Goal: Ability to identify factors that increase the pain will improve Outcome: Progressing Goal: Pain level will decrease Outcome: Progressing Problem: Activity: Goal: Ability to return to normal activity level will improve Outcome: Progressing Problem: Lack of Knowledge: Goal: Knowledge of the prescribed therapeutic regimen will improve Outcome: Progressing Problem: Coping: Goal: Ability to cope will improve Outcome: Progressing Problem: Health Behavior: Goal: Identification of resources available to assist in meeting health care needs will improve Outcome: Progressing Problem: Sensory: Goal: Pain level will decrease Outcome: Progressing Problem: Cardiac: Goal: Ability to maintain an adequate cardiac output will improve Outcome: Progressing Goal: Hemodynamic stability will improve Outcome: Progressing Problem: Lack of Knowledge: Goal: Ability to state signs and symptoms to report to health care provider will improve Outcome: Progressing Goal: Knowledge of the prescribed therapeutic regimen will improve Outcome: Progressing Goal: Mental status will improve Outcome: Progressing Problem: Fluid Volume: Goal: Ability to achieve and maintain adequate urine output will improve Outcome: Progressing Problem: Respiratory: Goal: Respiratory status will improve Outcome: Progressing Problem: Lack of Knowledge: Goal: Verbalization of understanding the information provided will improve Outcome: Progressing Problem: Lack of Knowledge: Goal: Ability to develop a pain control plan will improve Outcome: Progressing Goal: Ability to identify pain intensity on a pain scale and rate it consistently will improve Outcome: Progressing Goal: Ability to notify healthcare provider of pain before it becomes unmanageable or unbearable will improve Outcome: Progressing Problem: Medication: Goal: Satisfaction with pain management regimen will improve Outcome: Progressing Problem: Sensory: Goal: Ability to identify factors that increase the pain will improve Outcome: Progressing Goal: Pain level will decrease Outcome: Progressing * Plan of Care - Rachel Masters RN - 06/14/2022 6:45 PM CDT Goals: Clinical Goals for the Shift: CRRT, wean vent settings Summary: pt 40/9 on vent, august d/c, CRRT Problem: Health Behavior: Goal: Understanding of discharge needs will improve Outcome: Progressing Problem: Lack of Knowledge: Goal: Ability to state ways to decrease the risk of falls will improve Outcome: Progressing Problem: Safety: Goal: Will remain free from falls Outcome: Progressing Goal: Will remain free from injury from falls Outcome: Progressing Goal: Will remain free from falls and injury in home environment Outcome: Progressing Problem: Lack of Knowledge: Goal: Knowledge of disease or condition and prescribed therapeutic regimen will improve Outcome: Progressing Problem: Coping: Goal: Level of anxiety will decrease Outcome: Progressing Problem: Sensory: Goal: Pain level will decrease Outcome: Progressing Problem: Lack of Knowledge: Goal: Ability to describe self-care measures that may prevent or decrease complications will improve Outcome: Progressing Goal: Knowledge of disease or condition will improve Outcome: Progressing Goal: Knowledge of the prescribed therapeutic regimen will improve Outcome: Progressing Goal: Knowledge of prevention and discharge planning will improve Outcome: Progressing Problem: Coping: Goal: Ability to adjust to condition or change in health will improve Outcome: Progressing Problem: Nutritional: Goal: Maintenance of adequate nutrition will improve Outcome: Progressing Goal: Progress toward achieving an optimal weight will improve Outcome: Progressing Problem: Skin Integrity: Goal: Risk for impaired skin integrity will decrease Outcome: Progressing Problem: Lack of Knowledge: Goal: Ability to develop a pain control plan will improve Outcome: Progressing Goal: Ability to identify pain intensity on a pain scale and rate it consistently will improve Outcome: Progressing Goal: Ability to notify healthcare provider of pain before it becomes unmanageable or unbearable will improve Outcome: Progressing Problem: Medication: Goal: Satisfaction with pain management regimen will improve Outcome: Progressing Problem: Sensory: Goal: Ability to identify factors that increase the pain will improve Outcome: Progressing Goal: Pain level will decrease Outcome: Progressing Problem: Lack of Knowledge: Goal: Ability to develop a pain control plan will improve Outcome: Progressing Goal: Ability to identify pain intensity on a pain scale and rate it consistently will improve Outcome: Progressing Goal: Ability to notify healthcare provider of pain before it becomes unmanageable or unbearable will improve Outcome: Progressing Problem: Medication: Goal: Satisfaction with pain management regimen will improve Outcome: Progressing * Plan of Care - Milly Cooper RN - 06/14/2022 2:12 PM CDT Rounds with MD, keycase assembler, social work, & charge nurse Medical chart reviewed for medical necessity. Report per rounds: The patient is not medically stable to discharge today. ADD: TBD Referrals made: TBD Support following discharge: family Transportation: TBD Patient's Identified Problem/Goal Problem: Ensure acute medical needs are met and that patient has a safe discharge plan. Goal: Secure a discharge plan that patient/family are agreeable with and ensure patient has continuum of care. Patient and family are agreeable with plan. city manager will continue to follow and assist with discharge planning as needed * Consults, Subsequent - Miriam Driver MD - 06/14/2022 1:58 PM CDT Nephrology [facility]/CRRT Procedure Note Date of Service: 06/14/2022 I saw and evaluated the patient during CRRT. 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 No recent issues with clotting. On systemic heparin Off levophed support Treatment Type: Continuous veno-venous hemodiafiltration Machine Type: Prismaflex Filter Type: M150 Dialysate Fluid: NxStage 3Potassium/3Calcium Pre-Pump Replacement Fluid: NxStage 3Potassium/3Calcium Flow Rates Blood Flow Rate (mL/min): 200 mL/min Dialysate Flow Rate (mL/hr): 1400 mL/hr Pre-Pump Replacement Rate (mL/hr): 1400 mL/hr Heparin Syringe Rate (unit/hr): 1100 unit/hr Patient Fluid Removal Set Rate (mL/hr): 200 mL/hr Pressures Access Pressure (mmHg): -83 mmHg Filter Pressure (mmHg): 136 mmHg Effluent Pressure (mmHg): -24 mmHg Return Pressure (mmHg): 65 mmHg Trans-Membrane Pressure (mmHg): 112 mmHg Delta P (mmHg): 37 mmHg Off Reason: Access issues 24hr Min/Max: Temp Min: 36.6 ??C (97.8 ??F) Max: 37.3 ??C (99.1 ??F) Pulse Min: 69 Max: 90 Resp Min: 20 Max: 26 SpO2 Min: 93 % Max: 100 % Most Recent: BP 146/57 (Patient Position: Lying) Comment (BP Location): A line Pulse 72 Temp 37.1 ??C (98.8 ??F) (Skin) Resp 20 Ht 177.8 cm (5' 10 ) Wt 128.8 kg (283 lb 15.2 oz) SpO2 98% BMI 40.74 kg/m?? I/O last 2 completed shifts: In: 3061.4 [I.V.:1076.4; Other:500; NG/GT:1375; IV Piggyback:110] Out: 5139 [Urine:13; Other:5226] I/O this shift: In: 532.3 [I.V.:327.3; NG/GT:205] Out: 1369 [Urine:4; Other:1365] Medications, laboratory findings, and imaging studies reviewed. Medications: [Held by Provider] amLODIPine, 10 mg, oral, Daily aspirin, 81 mg, feeding tube, Daily atorvastatin, 80 mg, feeding tube, Daily calcitRIOL, 0.25 mcg, feeding tube, Daily [Held by Provider] calcium acetate(phosphat bind), 667 mg, oral, QID chlorhexidine, 15 mL, mouth/throat, BID [Held by Provider] cloNIDine, 0.1 mg, oral, BID clopidogreL, 75 mg, feeding tube, Daily docusate, 100 mg, feeding tube, Daily [Held by Provider] ergocalciferol, 50,000 Units, oral, Weekly ezetimibe, 10 mg, feeding tube, Daily gentamicin, , topical, Daily [Held by Provider] hydrALAZINE, 100 mg, oral, Q8H insulin glargine, 33 Units, subcutaneous, QAM insulin lispro, 0-10 Units, subcutaneous, Q4H ASHLEY insulin lispro, 5 Units, subcutaneous, Q4H [Held by Provider] isosorbide mononitrate ER, 30 mg, oral, Daily meropenem, 1,000 mg, intravenous, Q12H ASHLEY [Held by Provider] metoprolol tartrate, 12.5 mg, oral, Q6H [Held by Provider] nystatin, 500,000 Units, swish & spit, QID pantoprazole, 40 mg, intravenous, BID perflutren protein-a, , , polyethylene glycol, 17 g, feeding tube, BID [Held by Provider] ranolazine ER, 500 mg, oral, BID senna, 8.8 mg, oral, Nightly [Held by Provider] terazosin, 2 mg, oral, Nightly vancomycin, 1,750 mg, intravenous, Q24H dexmedeTOMIDine, 0-1.5 mcg/kg/hr, Last Rate: Stopped (06/10/22 2300) fentaNYL, 0-400 mcg/hr, Last Rate: 125 mcg/hr (06/14/22 1300) heparin, 0-33 Units/kg/hr, Last Rate: 7.5 Units/kg/hr (06/14/22 1300) midazolam, 0-12 mg/hr, Last Rate: Stopped (06/13/22 1327) nitroglycerin, 0-400 mcg/min, Last Rate: Stopped (06/05/22 2100) norepinephrine, 0-2 mcg/kg/min (Dosing Weight), Last Rate: Stopped (06/11/22 0400) NxStage 3-potassium/3-calcium, 1,400 mL/hr, Last Rate: 1,400 mL/hr (06/14/22 1025) NxStage 3-potassium/3-calcium, 1,400 mL/hr, Last Rate: 1,400 mL/hr (06/14/22 1025) propofol, 0-50 mcg/kg/min, Last Rate: 30 mcg/kg/min (06/14/22 1300) sodium chloride 0.9%, 10 mL/hr, Last Rate: 10 mL/hr (06/12/22 0834) sodium chloride 0.9%, 10 mL/hr, Last Rate: 10 mL/hr (06/09/22 0700) sodium chloride 0.9%, 10 mL/hr sodium chloride 0.9%, 10 mL/hr, Last Rate: 10 mL/hr (06/09/22 0700) sodium chloride 0.9%, 6 mL/hr, Last Rate: 6 mL/hr (06/10/22 1700) sodium chloride 0.9%, 1,000 mL sodium chloride 0.9%, 3-12 mL/hr, Last Rate: 3 mL/hr (06/14/22 1014) sodium chloride 0.9%, 3-12 mL/hr sodium chloride 0.9%, 3-12 mL/hr, Last Rate: 3 mL/hr (06/14/22 1200) Recent Labs Lab Units 06/14/22 0816 06/13/22 2249 06/13/222016 WBC K/cumm 15.7* 15.0* 16.9* HEMOGLOBIN g/dL 8.3* 7.7* 8.0* PLATELETS K/cumm 217 206 202 Recent Labs Lab Units 06/14/22 0816 06/13/22 2017 06/13/22 0933 06/12/22 2047 06/12/22 0802 06/11/222011 SODIUM mmol/L 134* 135 135 134* < > 135 POTASSIUM PLASMA mmol/L 4.7 4.9 5.6* 5.1* < > 4.7 CHLORIDE mmol/L 100 99 98 101 < > 101 CO2 mmol/L 25 26 26 24 < > 23 BUN SERUM mg/dL 16 17 19 19 < > 28* CREATININE mg/dL 2.19* 2.21* 2.26* 2.22* < > 3.01* CALCIUM mg/dL 9.5 8.9 8.7 8.7 < > 8.1* MAGNESIUM mg/dL 2.9* 2.7* 2.8* 2.7* < > 2.5 PHOSPHORUS PLASMA mg/dL -- 3.1 -- 3.5 -- 4.4 < > = values in this interval not displayed. Continue CVVHDF for now Will consider transtioning to [facility] in the following days, if BP remains stable On systemic heparin Miriam Driver MD Biology Department Chair Division of Nephrology Consult 1: After 4 PM on , after 12 PM on Monday, and all day Monday, please contact on-call renal fellow at with questions. * Consults, Subsequent - Girish Grant MD - 06/14/2022 9:03 AM CDT Pulmonary Daily Progress Subjective Chief complaint of respiratory failure Interval History: Remains sedated on ventilator. FiO2 40% with PEEP of 10. Scheduled Meds:[Held by Provider] amLODIPine, 10 mg, oral, Daily aspirin, 81 mg, feeding tube, Daily atorvastatin, 80 mg, feeding tube, Daily calcitRIOL, 0.25 mcg, feeding tube, Daily [Held by Provider] calcium acetate(phosphat bind), 667 mg, oral, QID chlorhexidine, 15 mL, mouth/throat, BID [Held by Provider] cloNIDine, 0.1 mg, oral, BID clopidogreL, 75 mg, feeding tube, Daily docusate, 100 mg, feeding tube, Daily [Held by Provider] ergocalciferol, 50,000 Units, oral, Weekly ezetimibe, 10 mg, feeding tube, Daily gentamicin, , topical, Daily [Held by Provider] hydrALAZINE, 100 mg, oral, Q8H insulin glargine, 33 Units, subcutaneous, QAM insulin lispro, 0-10 Units, subcutaneous, Q4H ASHLEY insulin lispro, 5 Units, subcutaneous, Q4H [Held by Provider] isosorbide mononitrate ER, 30 mg, oral, Daily meropenem, 1,000 mg, intravenous, Q12H ASHLEY [Held by Provider] metoprolol tartrate, 12.5 mg, oral, Q6H [Held by Provider] nystatin, 500,000 Units, swish & spit, QID pantoprazole, 40 mg, intravenous, BID perflutren protein-a, , , polyethylene glycol, 17 g, feeding tube, BID [Held by Provider] ranolazine ER, 500 mg, oral, BID senna, 8.8 mg, oral, Nightly [Held by Provider] terazosin, 2 mg, oral, Nightly vancomycin, 1,750 mg, intravenous, Q24H Continuous Infusions:dexmedeTOMIDine, 0-1.5 mcg/kg/hr, Last Rate: Stopped (06/10/22 2300) peritoneal fluid with or without additives for CAPD, , Last Rate: 500 mL/hr at 06/13/22 1047 fentaNYL, 0-400 mcg/hr, Last Rate: 125 mcg/hr (06/14/22 08) heparin, 0-33 Units/kg/hr, Last Rate: 7.5 Units/kg/hr (06/14/22 08) midazolam, 0-12 mg/hr, Last Rate: Stopped (06/13/22 1327) nitroglycerin, 0-400 mcg/min, Last Rate: Stopped (06/05/22 2100) norepinephrine, 0-2 mcg/kg/min (Dosing Weight), Last Rate: Stopped (06/11/22 0400) NxStage 3-potassium/3-calcium, 1,400 mL/hr, Last Rate: 1,400 mL/hr (06/13/22 1318) NxStage 3-potassium/3-calcium, 1,400 mL/hr, Last Rate: 1,400 mL/hr (06/13/22 2035) propofol, 0-50 mcg/kg/min, Last Rate: 40 mcg/kg/min (06/14/22 0800) sodium chloride 0.9%, sodium chloride 0.9%, 10 mL/hr, Last Rate: 10 mL/hr (06/12/22 0834) sodium chloride 0.9%, 10 mL/hr, Last Rate: 10 mL/hr (06/09/22 0700) sodium chloride 0.9%, 10 mL/hr sodium chloride 0.9%, 10 mL/hr, Last Rate: 10 mL/hr (06/09/22 0700) sodium chloride 0.9%, 6 mL/hr, Last Rate: 6 mL/hr (06/10/22 1700) sodium chloride 0.9%, 1,000 mL sodium chloride 0.9%, 3-12 mL/hr sodium chloride 0.9%, 3-12 mL/hr sodium chloride 0.9%, 3-12 mL/hr, Last Rate: 3 mL/hr (06/14/22 0800) PRN Meds:. acetaminophen albuterol HFA bisacodyL bisacodyl EC dextrose OR dextrose dextrose 5% water dextrose 5% water fentaNYL fentaNYL fluticasone propionate glucagon Dialysis Access Care AND heparin heparin OR heparin lidocaine ondansetron ODT OR ondansetron phenoL polyethylene glycol ramelteon sodium chloride 0.9% Objective Vitals: 24hr Min/Max: Temp Min: 36.6 ??C (97.8 ??F) Max: 37.1 ??C (98.7 ??F) Pulse Min: 69 Max: 77 Resp Min: 20 Max: 21 SpO2 Min: 95 % Max: 100 % Most Recent : Vitals: 06/14/22 0800 BP: Pulse: 72 Resp: 20 Temp: SpO2: 100% I/O last 2 completed shifts: In: 3061.4 [I.V.:1076.4; Other:500; NG/GT:1375; IV Piggyback:110] Out: 5139 [Urine:13; Other:5226] Physical Exam: CV: RRR S1S2 Lungs: Coarse breath sounds Abd: Obese Ext: no cyanosis +edema Lab/Radiology/Diagnostic Review: I have reviewed labs from last 24 hours. Recent Results (from the past 24 hour(s)) CBC with auto differential Collection Time: 06/13/22 9:33 AM Result Value Ref Range WBC 15.6 (H) 3.8 - 9.9 K/cumm Hgb 7.7 (L) 13.0 - 17.5 g/dL Hct 23.1 (L) 38.9 - 50.3 % Plt 191 150 - 400 K/cumm MPV 10.9 9.1 - 12.3 fL RBC 2.45 (L) 4.30 - 5.80 M/cumm MCV 94.3 81.3 - 96.4 fL MCH 31.4 27.1 - 33.3 pg MCHC 33.3 32.3 - 35.7 g/dL RDW CV 13.6 11.1 - 14.9 % RDW SD 46.7 35.7 - 48.1 fL NRBC abs 0.05 (H) 0.00 - 0.01 K/cumm Comprehensive metabolic panel Collection Time: 06/13/22 9:33 AM Result Value Ref Range Sodium 135 135 - 145 mmol/L Potassium, pl 5.6 (H) 3.3 - 4.9 mmol/L Chloride 98 97 - 110 mmol/L CO2 26 22 - 32 mmol/L Anion gap 11 2 - 15 mmol/L BUN 19 8 - 25 mg/dL Creatinine 2.26 (H) 0.80 - 1.30 mg/dL Glucose 217 (H) 70 - 199 mg/dL Calcium 8.7 8.5 - 10.3 mg/dL Bilirubin, total 0.7 0.1 - 1.2 mg/dL Protein, pl 6.5 6.5 - 8.5 g/dL Albumin 3.2 (L) 3.5 - 5.0 g/dL Alk phos 300 (H) 40 - 130 Units/L ALT 55 7 - 55 Units/L AST 90 (H) 10 - 50 Units/L Magnesium Collection Time: 06/13/22 9:33 AM Result Value Ref Range Magnesium 2.8 (H) 1.4 - 2.5 mg/dL eGFR Collection Time: 06/13/22 9:33 AM Result Value Ref Range eGFR 34 (L) 90 - 130 mL/min/1.73 m2 Manual Differential Collection Time: 06/13/22 9:33 AM Result Value Ref Range Differential Manual Cells Counted 115 Neutrophil abs 13.0 (H) 1.7 - 6.5 K/cumm Imm gran abs 1.2 (H) 0.0 - 0.1 K/cumm Lymphocyte abs 0.7 (L) 0.8 - 3.3 K/cumm Monocyte abs 0.4 0.2 - 0.8 K/cumm Eosinophil abs 0.3 0.0 - 0.5 K/cumm Neutrophil pct 83.6 % Lymphocyte pct 4.3 % Monocyte pct 2.6 % Eosinophil pct 1.7 % Neutrophilic metamyelocytes 5.2 % Myelocytes 2.6 % Transthoracic Echo (TTE) With Bubble Study Collection Time: 06/13/22 9:34 AM Result Value Ref Range LV EF 65 % POCT glucose Collection Time: 06/13/22 9:38 AM Result Value Ref Range Glucose, POC 215 (H) 70 - 199 mg/dL Blood gas, arterial Collection Time: 06/13/22 9:41 AM Result Value Ref Range pH, Art 7.40 7.35 - 7.45 PCO2, Arterial 40 35 - 45 mmHg PO2, Arterial 66 (L) 83 - 108 mmHg HCO3 Art (Calculated) 26 20 - 30 mmol/L BE, art 0 mmol/L O2 Sat Art (Measured) 93 90 - 95 % Lactate, whole blood Collection Time: 06/13/22 9:41 AM Result Value Ref Range Lactate, bld 1.0 0.7 - 2.0 mmol/L Potassium, whole blood Collection Time: 06/13/22 9:41 AM Result Value Ref Range Potassium, bld 5.7 (H) 3.3 - 4.9 mmol/L Blood gas, arterial Collection Time: 06/13/22 12:20 PM Result Value Ref Range pH, Art 7.40 7.35 - 7.45 PCO2, Arterial 42 35 - 45 mmHg PO2, Arterial 60 (L) 83 - 108 mmHg HCO3 Art (Calculated) 27 20 - 30 mmol/L BE, art 2 mmol/L O2 Sat Art (Measured) 90 90 - 95 % POCT glucose Collection Time: 06/13/22 12:29 PM Result Value Ref Range Glucose, POC 129 70 - 199 mg/dL POCT glucose Collection Time: 06/13/22 4:11 PM Result Value Ref Range Glucose, POC 99 70 - 199 mg/dL Lactate, whole blood Collection Time: 06/13/22 4:12 PM Result Value Ref Range Lactate, bld 0.9 0.7 - 2.0 mmol/L Potassium, whole blood Collection Time: 06/13/22 4:12 PM Result Value Ref Range Potassium, bld 4.5 3.3 - 4.9 mmol/L Blood gas, arterial Collection Time: 06/13/22 4:12 PM Result Value Ref Range pH, Art 7.43 7.35 - 7.45 PCO2, Arterial 39 35 - 45 mmHg PO2, Arterial 63 (L) 83 - 108 mmHg HCO3 Art (Calculated) 27 20 - 30 mmol/L BE, art 2 mmol/L O2 Sat Art (Measured) 92 90 - 95 % aPTT Collection Time: 06/13/22 4:12 PM Result Value Ref Range aPTT 71 (H) 27 - 37 sec CBC with auto differential Collection Time: 06/13/22 8:17 PM Result Value Ref Range WBC 16.9 (H) 3.8 - 9.9 K/cumm Hgb 8.0 (L) 13.0 - 17.5 g/dL Hct 24.2 (L) 38.9 - 50.3 % Plt 202 150 - 400 K/cumm MPV 10.7 9.1 - 12.3 fL RBC 2.55 (L) 4.30 - 5.80 M/cumm MCV 94.9 81.3 - 96.4 fL MCH 31.4 27.1 - 33.3 pg MCHC 33.1 32.3 - 35.7 g/dL RDW CV 13.7 11.1 - 14.9 % RDW SD 46.6 35.7 - 48.1 fL NRBC abs 0.07 (H) 0.00 - 0.01 K/cumm Lipase Collection Time: 06/13/22 8:17 PM Result Value Ref Range Lipase 16 10 - 99 Units/L Beta-hydroxybutyrate Collection Time: 06/13/22 8:17 PM Result Value Ref Range Beta-Hydroxybutyrate 1.2 (H) 0.0 - 0.5 mmol/L Phosphorus Collection Time: 06/13/22 8:17 PM Result Value Ref Range Phosphorus, pl 3.1 2.3 - 4.5 mg/dL Triglycerides Collection Time: 06/13/22 8:17 PM Result Value Ref Range Triglycerides 324 (H) <=149 mg/dL Blood gas, arterial Collection Time: 06/13/22 8:17 PM Result Value Ref Range pH, Art 7.42 7.35 - 7.45 PCO2, Arterial 37 35 - 45 mmHg PO2, Arterial 73 (L) 83 - 108 mmHg HCO3 Art (Calculated) 24 20 - 30 mmol/L BE, art 0 mmol/L O2 Sat Art (Measured) 94 90 - 95 % Lactate, whole blood Collection Time: 06/13/22 8:17 PM Result Value Ref Range Lactate, bld 0.8 0.7 - 2.0 mmol/L Comprehensive metabolic panel Collection Time: 06/13/22 8:17 PM Result Value Ref Range Sodium 135 135 - 145 mmol/L Potassium, pl 4.9 3.3 - 4.9 mmol/L Chloride 99 97 - 110 mmol/L CO2 26 22 - 32 mmol/L Anion gap 10 2 - 15 mmol/L BUN 17 8 - 25 mg/dL Creatinine 2.21 (H) 0.80 - 1.30 mg/dL Glucose 179 70 - 199 mg/dL Calcium 8.9 8.5 - 10.3 mg/dL Bilirubin, total 0.6 0.1 - 1.2 mg/dL Protein, pl 6.2 (L) 6.5 - 8.5 g/dL Albumin 3.0 (L) 3.5 - 5.0 g/dL Alk phos 274 (H) 40 - 130 Units/L ALT 47 7 - 55 Units/L AST 80 (H) 10 - 50 Units/L Magnesium Collection Time: 06/13/22 8:17 PM Result Value Ref Range Magnesium 2.7 (H) 1.4 - 2.5 mg/dL Differential, auto Collection Time: 06/13/22 8:17 PM Result Value Ref Range Neutrophil abs 10.6 (H) 1.7 - 6.5 K/cumm Imm gran abs 2.2 (H) 0.0 - 0.1 K/cumm Lymphocyte abs 2.3 0.8 - 3.3 K/cumm Monocyte abs 1.5 (H) 0.2 - 0.8 K/cumm Eosinophil abs 0.3 0.0 - 0.5 K/cumm Basophil abs 0.1 0.0 - 0.1 K/cumm Neutrophil pct 62.7 % Imm gran pct 13.0 % Lymphocyte pct 13.4 % Monocyte pct 8.9 % Eosinophil pct 1.7 % Basophil pct 0.3 % eGFR Collection Time: 06/13/22 8:17 PM Result Value Ref Range eGFR 35 (L) 90 - 130 mL/min/1.73 m2 POCT glucose Collection Time: 06/13/22 8:28 PM Result Value Ref Range Glucose, POC 182 70 - 199 mg/dL POCT glucose Collection Time: 06/13/22 10:48 PM Result Value Ref Range Glucose, POC 200 (H) 70 - 199 mg/dL CBC without differential Collection Time: 06/13/22 10:49 PM Result Value Ref Range WBC 15.0 (H) 3.8 - 9.9 K/cumm Hgb 7.7 (L) 13.0 - 17.5 g/dL Hct 22.7 (L) 38.9 - 50.3 % Plt 206 150 - 400 K/cumm MPV 10.6 9.1 - 12.3 fL RBC 2.41 (L) 4.30 - 5.80 M/cumm MCV 94.2 81.3 - 96.4 fL MCH 32.0 27.1 - 33.3 pg MCHC 33.9 32.3 - 35.7 g/dL RDW CV 13.7 11.1 - 14.9 % RDW SD 46.4 35.7 - 48.1 fL NRBC abs 0.05 (H) 0.00 - 0.01 K/cumm Vancomycin level trough Collection Time: 06/13/22 10:49 PM Result Value Ref Range Vancomycin trough 23.3 (H) 10.0 - 20.0 mcg/mL aPTT Collection Time: 06/13/22 10:49 PM Result Value Ref Range aPTT 72 (H) 27 - 37 sec POCT glucose Collection Time: 06/13/22 11:38 PM Result Value Ref Range Glucose, POC 175 70 - 199 mg/dL POCT glucose Collection Time: 06/14/22 4:01 AM Result Value Ref Range Glucose, POC 163 70 - 199 mg/dL POCT glucose Collection Time: 06/14/22 7:46 AM Result Value Ref Range Glucose, POC 180 70 - 199 mg/dL CBC with auto differential Collection Time: 06/14/22 8:16 AM Result Value Ref Range WBC 15.7 (H) 3.8 - 9.9 K/cumm Hgb 8.3 (L) 13.0 - 17.5 g/dL Hct 25.5 (L) 38.9 - 50.3 % Plt 217 150 - 400 K/cumm MPV 10.6 9.1 - 12.3 fL RBC 2.63 (L) 4.30 - 5.80 M/cumm MCV 97.0 (H) 81.3 - 96.4 fL MCH 31.6 27.1 - 33.3 pg MCHC 32.5 32.3 - 35.7 g/dL RDW CV 13.8 11.1 - 14.9 % RDW SD 48.2 (H) 35.7 - 48.1 fL NRBC abs 0.07 (H) 0.00 - 0.01 K/cumm Comprehensive metabolic panel Collection Time: 06/14/22 8:16 AM Result Value Ref Range Sodium 134 (L) 135 - 145 mmol/L Potassium, pl 4.7 3.3 - 4.9 mmol/L Chloride 100 97 - 110 mmol/L CO2 25 22 - 32 mmol/L Anion gap 9 2 - 15 mmol/L BUN 16 8 - 25 mg/dL Creatinine 2.19 (H) 0.80 - 1.30 mg/dL Glucose 171 70 - 199 mg/dL Calcium 9.5 8.5 - 10.3 mg/dL Bilirubin, total 0.6 0.1 - 1.2 mg/dL Protein, pl 6.6 6.5 - 8.5 g/dL Albumin 3.1 (L) 3.5 - 5.0 g/dL Alk phos 276 (H) 40 - 130 Units/L ALT 48 7 - 55 Units/L AST 81 (H) 10 - 50 Units/L Magnesium Collection Time: 06/14/22 8:16 AM Result Value Ref Range Magnesium 2.9 (H) 1.4 - 2.5 mg/dL Blood gas, arterial Collection Time: 06/14/22 8:16 AM Result Value Ref Range pH, Art 7.41 7.35 - 7.45 PCO2, Arterial 38 35 - 45 mmHg PO2, Arterial 89 83 - 108 mmHg HCO3 Art (Calculated) 25 20 - 30 mmol/L BE, art 0 mmol/L O2 Sat Art (Measured) 97 (H) 90 - 95 % aPTT Collection Time: 06/14/22 8:16 AM Result Value Ref Range aPTT 67 (H) 27 - 37 sec eGFR Collection Time: 06/14/22 8:16 AM Result Value Ref Range eGFR 35 (L) 90 - 130 mL/min/1.73 m2 POCT glucose Collection Time: 06/14/22 8:18 AM Result Value Ref Range Glucose, POC 172 70 - 199 mg/dL Chest x-ray today was personally reviewed and shows some improvement in left lower lobe atelectasis. No new confluent infiltrates. ASSESSMENT AND PLAN Acute hypoxemic respiratory failure (HCC) Assessment & Plan Mr. Garvin is a 51 y/o M with medical history most significant for CAD, DM1, ESRD on PD, initially presenting for complex PCI, found to have cholecystitis, now in CCU with cardiogenic shock. Pulmonary is consulted for hypoxemic respiratory failure. Problem List: - Acute hypoxemic respiratory failure, secondary to cardiogenic pulmonary edema, atelectasis - Cardiogenic shock, NSTEMI s/p complex PCI, impella - BEN on home CPAP - Acute cholecystitis, meropenem/vancomycin Acute hypoxemic respiratory failure continues to be most consistent with a combination of cardiogenic pulmonary edema and lower lobe atelectasis with improvement following diuresis. Recommendations: - Continue diuresis as tolerated - Continue lung protective ventilation keeping plat pressures < 30 - consider decreasing PEEP to 7.5. Given the extent of his underlying atelectasis would not decrease be by more than 2.5 daily - Continue antibiotics per primary team * Plan of Care - Joyce Begum RRT - 06/14/2022 4:33 AM CDT Patient on mechanical ventilation. Wean as tolerated. * Plan of Care - Wandy Maradiaga RN - 06/13/2022 11:31 PM CDT Goals: Clinical Goals for the Shift: strict I&O's, dialysis, monitor vitals and labs Summary: Problem: Health Behavior: Goal: Understanding of discharge needs will improve Outcome: Progressing Problem: Lack of Knowledge: Goal: Ability to state ways to decrease the risk of falls will improve Outcome: Progressing Problem: Safety: Goal: Will remain free from falls Outcome: Progressing Goal: Will remain free from injury from falls Outcome: Progressing Goal: Will remain free from falls and injury in home environment Outcome: Progressing Problem: Lack of Knowledge: Goal: Knowledge of disease or condition and prescribed therapeutic regimen will improve Outcome: Progressing Problem: Coping: Goal: Level of anxiety will decrease Outcome: Progressing Problem: Sensory: Goal: Pain level will decrease Outcome: Progressing Problem: Lack of Knowledge: Goal: Ability to describe self-care measures that may prevent or decrease complications will improve Outcome: Progressing Goal: Knowledge of disease or condition will improve Outcome: Progressing Goal: Knowledge of the prescribed therapeutic regimen will improve Outcome: Progressing Goal: Knowledge of prevention and discharge planning will improve Outcome: Progressing Problem: Coping: Goal: Ability to adjust to condition or change in health will improve Outcome: Progressing Problem: Fluid Volume: Goal: Ability to maintain a balanced intake and output will improve Outcome: Progressing Problem: Health Behavior: Goal: Ability to identify and alter actions that are detrimental to health will improve Outcome: Progressing Goal: Ability to identify and utilize available resources and services will improve Outcome: Progressing Goal: Ability to manage health-related needs will improve Outcome: Progressing Problem: Nutritional: Goal: Maintenance of adequate nutrition will improve Outcome: Progressing Goal: Progress toward achieving an optimal weight will improve Outcome: Progressing Problem: Physical Regulation: Goal: Complications related to the disease process, condition or treatment will be avoided or minimized Outcome: Progressing Goal: Diagnostic test results will improve Outcome: Progressing Problem: Skin Integrity: Goal: Risk for impaired skin integrity will decrease Outcome: Progressing Problem: Lack of Knowledge: Goal: Ability to develop a pain control plan will improve Outcome: Progressing Goal: Ability to identify pain intensity on a pain scale and rate it consistently will improve Outcome: Progressing Goal: Ability to notify healthcare provider of pain before it becomes unmanageable or unbearable will improve Outcome: Progressing Problem: Medication: Goal: Satisfaction with pain management regimen will improve Outcome: Progressing Problem: Sensory: Goal: Ability to identify factors that increase the pain will improve Outcome: Progressing Goal: Pain level will decrease Outcome: Progressing Problem: Activity: Goal: Ability to return to normal activity level will improve Outcome: Progressing Problem: Lack of Knowledge: Goal: Knowledge of the prescribed therapeutic regimen will improve Outcome: Progressing Problem: Coping: Goal: Ability to cope will improve Outcome: Progressing Problem: Health Behavior: Goal: Identification of resources available to assist in meeting health care needs will improve Outcome: Progressing Problem: Sensory: Goal: Pain level will decrease Outcome: Progressing Problem: Cardiac: Goal: Ability to maintain an adequate cardiac output will improve Outcome: Progressing Goal: Hemodynamic stability will improve Outcome: Progressing Problem: Lack of Knowledge: Goal: Ability to state signs and symptoms to report to health care provider will improve Outcome: Progressing Goal: Knowledge of the prescribed therapeutic regimen will improve Outcome: Progressing Goal: Mental status will improve Outcome: Progressing Problem: Fluid Volume: Goal: Ability to achieve and maintain adequate urine output will improve Outcome: Progressing Problem: Respiratory: Goal: Respiratory status will improve Outcome: Progressing Problem: Lack of Knowledge: Goal: Verbalization of understanding the information provided will improve Outcome: Progressing Problem: Lack of Knowledge: Goal: Ability to develop a pain control plan will improve Outcome: Progressing Goal: Ability to identify pain intensity on a pain scale and rate it consistently will improve Outcome: Progressing Goal: Ability to notify healthcare provider of pain before it becomes unmanageable or unbearable will improve Outcome: Progressing Problem: Medication: Goal: Satisfaction with pain management regimen will improve Outcome: Progressing Problem: Sensory: Goal: Ability to identify factors that increase the pain will improve Outcome: Progressing Goal: Pain level will decrease Outcome: Progressing * Consults, Subsequent - Sandrine Myers MD - 06/13/2022 2:22 PM CDT Pulmonary Daily Progress Subjective Chief complaint of respiratory failure. Interval History: No acute events, FiO2 weaned to 40% from 70% over the weekend. Scheduled Meds:[Held by Provider] amLODIPine, 10 mg, oral, Daily aspirin, 81 mg, feeding tube, Daily atorvastatin, 80 mg, feeding tube, Daily calcitRIOL, 0.25 mcg, feeding tube, Daily [Held by Provider] calcium acetate(phosphat bind), 667 mg, oral, QID chlorhexidine, 15 mL, mouth/throat, BID [Held by Provider] cloNIDine, 0.1 mg, oral, BID clopidogreL, 75 mg, feeding tube, Daily docusate, 100 mg, feeding tube, Daily [Held by Provider] ergocalciferol, 50,000 Units, oral, Weekly ezetimibe, 10 mg, feeding tube, Daily gentamicin, , topical, Daily [Held by Provider] hydrALAZINE, 100 mg, oral, Q8H insulin glargine, 33 Units, subcutaneous, QAM insulin lispro, 0-10 Units, subcutaneous, Q4H ASHLEY insulin lispro, 5 Units, subcutaneous, Q4H [Held by Provider] isosorbide mononitrate ER, 30 mg, oral, Daily meropenem, 1,000 mg, intravenous, Q12H ASHLEY [Held by Provider] metoprolol tartrate, 12.5 mg, oral, Q6H [Held by Provider] nystatin, 500,000 Units, swish & spit, QID pantoprazole, 40 mg, intravenous, BID polyethylene glycol, 17 g, feeding tube, BID [Held by Provider] ranolazine ER, 500 mg, oral, BID senna, 8.8 mg, oral, Nightly [Held by Provider] terazosin, 2 mg, oral, Nightly vancomycin, 15 mg/kg, intravenous, Q24H Continuous Infusions:dexmedeTOMIDine, 0-1.5 mcg/kg/hr, Last Rate: Stopped (06/10/22 2300) peritoneal fluid with or without additives for CAPD, , Last Rate: 500 mL/hr at 06/13/22 1047 fentaNYL, 0-400 mcg/hr, Last Rate: 100 mcg/hr (06/13/22 1400) heparin, 0-2,000 Units/hr, Last Rate: 1,100 Units/hr (06/13/22 0700) heparin, 0-33 Units/kg/hr, Last Rate: 7.5 Units/kg/hr (06/13/22 1400) midazolam, 0-12 mg/hr, Last Rate: Stopped (06/13/22 1327) nitroglycerin, 0-400 mcg/min, Last Rate: Stopped (06/05/22 2100) norepinephrine, 0-2 mcg/kg/min (Dosing Weight), Last Rate: Stopped (06/11/22 0400) NxStage 3-potassium/3-calcium, 1,400 mL/hr, Last Rate: 1,400 mL/hr (06/13/22 1318) NxStage 3-potassium/3-calcium, 1,400 mL/hr, Last Rate: 1,400 mL/hr (06/13/22 1318) propofol, 0-50 mcg/kg/min, Last Rate: 30 mcg/kg/min (06/13/22 1400) sodium chloride 0.9%, 10 mL/hr, Last Rate: 10 mL/hr (06/12/22 0834) sodium chloride 0.9%, 10 mL/hr, Last Rate: 10 mL/hr (06/09/22 0700) sodium chloride 0.9%, 10 mL/hr sodium chloride 0.9%, 10 mL/hr, Last Rate: 10 mL/hr (06/09/22 0700) sodium chloride 0.9%, 6 mL/hr, Last Rate: 6 mL/hr (06/10/22 1700) sodium chloride 0.9%, 1,000 mL sodium chloride 0.9%, 1,000 mL sodium chloride 0.9%, 3-12 mL/hr sodium chloride 0.9%, 3-12 mL/hr sodium chloride 0.9%, 3-12 mL/hr, Last Rate: 3 mL/hr (06/13/22 1200) PRN Meds:. acetaminophen albuterol HFA bisacodyL bisacodyl EC dextrose OR dextrose dextrose 5% water dextrose 5% water fentaNYL fentaNYL fluticasone propionate glucagon Dialysis Access Care AND heparin Dialysis Access Care AND heparin heparin OR heparin lidocaine ondansetron ODT OR ondansetron phenoL polyethylene glycol ramelteon sodium chloride 0.9% sodium chloride 0.9% I/O last 2 completed shifts: In: 2676.5 [I.V.:641.5; NG/GT:1425; IV Piggyback:610] Out: 4709 [Urine:145; Other:4104; Stool:460] Objective Vitals: Vitals: 06/13/22 1400 BP: Pulse: 72 Resp: 20 Temp: SpO2: 96% Net negative 2L Physical Exam: Constitutional: Intubated, sedated Head: ETT in place Cardiac: Normal rate, regular rhythm. No murmurs Resp: Clear to auscultation bilaterally. No wheezes, rhonchi, or rales. Vent AC/VC 500/20/40%/10, plateau pressure ~25. Abdomen: Soft. Obese, non distended. Extremities: +Peripheral edema, no cyanosis Data: I have reviewed labs from last 24 hours. Pertinent findings include: BCx 06/09 and 06/11 NGTD. Recent Results (from the past 24 hour(s)) Aerobic culture and gram stain Tracheal aspirate Tracheal Collection Time: 06/12/22 2:31 PM Specimen: Tracheal aspirate Result Value Ref Range Direct Specimen Exam Stain: Rare polymorphonuclear leukocytes seen. Few squamous epithelial cells seen. Rare mixed bacterial stone seen on Gram stain. Report Preliminary Report: Insignificant growth based on current clinical standards. Blood gas, arterial Collection Time: 06/12/22 4:01 PM Result Value Ref Range pH, Art 7.42 7.35 - 7.45 PCO2, Arterial 41 35 - 45 mmHg PO2, Arterial 94 83 - 108 mmHg HCO3 Art (Calculated) 27 20 - 30 mmol/L BE, art 2 mmol/L aPTT Collection Time: 06/12/22 4:01 PM Result Value Ref Range aPTT 75 (H) 27 - 37 sec POCT glucose Collection Time: 06/12/22 4:01 PM Result Value Ref Range Glucose, POC 110 70 - 199 mg/dL POCT glucose Collection Time: 06/12/22 8:44 PM Result Value Ref Range Glucose, POC 99 70 - 199 mg/dL CBC with auto differential Collection Time: 06/12/22 8:47 PM Result Value Ref Range WBC 14.6 (H) 3.8 - 9.9 K/cumm Hgb 8.1 (L) 13.0 - 17.5 g/dL Hct 24.7 (L) 38.9 - 50.3 % Plt 207 150 - 400 K/cumm MPV 11.0 9.1 - 12.3 fL RBC 2.61 (L) 4.30 - 5.80 M/cumm MCV 94.6 81.3 - 96.4 fL MCH 31.0 27.1 - 33.3 pg MCHC 32.8 32.3 - 35.7 g/dL RDW CV 13.4 11.1 - 14.9 % RDW SD 45.9 35.7 - 48.1 fL NRBC abs 0.03 (H) 0.00 - 0.01 K/cumm Lipase Collection Time: 06/12/22 8:47 PM Result Value Ref Range Lipase 16 10 - 99 Units/L Beta-hydroxybutyrate Collection Time: 06/12/22 8:47 PM Result Value Ref Range Beta-Hydroxybutyrate 0.2 0.0 - 0.5 mmol/L Phosphorus Collection Time: 06/12/22 8:47 PM Result Value Ref Range Phosphorus, pl 3.5 2.3 - 4.5 mg/dL Triglycerides Collection Time: 06/12/22 8:47 PM Result Value Ref Range Triglycerides 248 (H) <=149 mg/dL aPTT Collection Time: 06/12/22 8:47 PM Result Value Ref Range aPTT 78 (H) 27 - 37 sec Blood gas, arterial Collection Time: 06/12/22 8:47 PM Result Value Ref Range pH, Art 7.36 7.35 - 7.45 PCO2, Arterial 47 (H) 35 - 45 mmHg PO2, Arterial 84 83 - 108 mmHg HCO3 Art (Calculated) 27 20 - 30 mmol/L BE, art 1 mmol/L O2 Sat Art (Measured) 96 (H) 90 - 95 % Comprehensive metabolic panel Collection Time: 06/12/22 8:47 PM Result Value Ref Range Sodium 134 (L) 135 - 145 mmol/L Potassium, pl 5.1 (H) 3.3 - 4.9 mmol/L Chloride 101 97 - 110 mmol/L CO2 24 22 - 32 mmol/L Anion gap 9 2 - 15 mmol/L BUN 19 8 - 25 mg/dL Creatinine 2.22 (H) 0.80 - 1.30 mg/dL Glucose 101 70 - 199 mg/dL Calcium 8.7 8.5 - 10.3 mg/dL Bilirubin, total 0.8 0.1 - 1.2 mg/dL Protein, pl 6.5 6.5 - 8.5 g/dL Albumin 2.7 (L) 3.5 - 5.0 g/dL Alk phos 300 (H) 40 - 130 Units/L ALT 57 (H) 7 - 55 Units/L AST 110 (H) 10 - 50 Units/L Magnesium Collection Time: 06/12/22 8:47 PM Result Value Ref Range Magnesium 2.7 (H) 1.4 - 2.5 mg/dL Differential, auto Collection Time: 06/12/22 8:47 PM Result Value Ref Range Neutrophil abs 9.5 (H) 1.7 - 6.5 K/cumm Imm gran abs 1.9 (H) 0.0 - 0.1 K/cumm Lymphocyte abs 1.8 0.8 - 3.3 K/cumm Monocyte abs 1.0 (H) 0.2 - 0.8 K/cumm Eosinophil abs 0.3 0.0 - 0.5 K/cumm Basophil abs 0.0 0.0 - 0.1 K/cumm Neutrophil pct 65.3 % Imm gran pct 13.1 % Lymphocyte pct 12.0 % Monocyte pct 7.0 % Eosinophil pct 2.3 % Basophil pct 0.3 % eGFR Collection Time: 06/12/22 8:47 PM Result Value Ref Range eGFR 35 (L) 90 - 130 mL/min/1.73 m2 Lactate, whole blood Collection Time: 06/12/22 8:55 PM Result Value Ref Range Lactate, bld 1.2 0.7 - 2.0 mmol/L POCT glucose Collection Time: 06/12/22 11:26 PM Result Value Ref Range Glucose, POC 123 70 - 199 mg/dL Potassium, whole blood Collection Time: 06/13/22 1:11 AM Result Value Ref Range Potassium, bld 4.8 3.3 - 4.9 mmol/L Blood gas, arterial Collection Time: 06/13/22 1:11 AM Result Value Ref Range pH, Art 7.35 7.35 - 7.45 PCO2, Arterial 44 35 - 45 mmHg PO2, Arterial 72 (L) 83 - 108 mmHg HCO3 Art (Calculated) 25 20 - 30 mmol/L BE, art -1 mmol/L O2 Sat Art (Measured) 94 90 - 95 % Blood gas, arterial Collection Time: 06/13/22 2:26 AM Result Value Ref Range pH, Art 7.35 7.35 - 7.45 PCO2, Arterial 42 35 - 45 mmHg PO2, Arterial 78 (L) 83 - 108 mmHg HCO3 Art (Calculated) 24 20 - 30 mmol/L BE, art -3 mmol/L O2 Sat Art (Measured) 94 90 - 95 % POCT glucose Collection Time: 06/13/22 4:40 AM Result Value Ref Range Glucose, POC 280 (H) 70 - 199 mg/dL CBC with auto differential Collection Time: 06/13/22 9:33 AM Result Value Ref Range WBC 15.6 (H) 3.8 - 9.9 K/cumm Hgb 7.7 (L) 13.0 - 17.5 g/dL Hct 23.1 (L) 38.9 - 50.3 % Plt 191 150 - 400 K/cumm MPV 10.9 9.1 - 12.3 fL RBC 2.45 (L) 4.30 - 5.80 M/cumm MCV 94.3 81.3 - 96.4 fL MCH 31.4 27.1 - 33.3 pg MCHC 33.3 32.3 - 35.7 g/dL RDW CV 13.6 11.1 - 14.9 % RDW SD 46.7 35.7 - 48.1 fL NRBC abs 0.05 (H) 0.00 - 0.01 K/cumm Comprehensive metabolic panel Collection Time: 06/13/22 9:33 AM Result Value Ref Range Sodium 135 135 - 145 mmol/L Potassium, pl 5.6 (H) 3.3 - 4.9 mmol/L Chloride 98 97 - 110 mmol/L CO2 26 22 - 32 mmol/L Anion gap 11 2 - 15 mmol/L BUN 19 8 - 25 mg/dL Creatinine 2.26 (H) 0.80 - 1.30 mg/dL Glucose 217 (H) 70 - 199 mg/dL Calcium 8.7 8.5 - 10.3 mg/dL Bilirubin, total 0.7 0.1 - 1.2 mg/dL Protein, pl 6.5 6.5 - 8.5 g/dL Albumin 3.2 (L) 3.5 - 5.0 g/dL Alk phos 300 (H) 40 - 130 Units/L ALT 55 7 - 55 Units/L AST 90 (H) 10 - 50 Units/L Magnesium Collection Time: 06/13/22 9:33 AM Result Value Ref Range Magnesium 2.8 (H) 1.4 - 2.5 mg/dL eGFR Collection Time: 06/13/22 9:33 AM Result Value Ref Range eGFR 34 (L) 90 - 130 mL/min/1.73 m2 Manual Differential Collection Time: 06/13/22 9:33 AM Result Value Ref Range Differential Manual Cells Counted 115 Neutrophil abs 13.0 (H) 1.7 - 6.5 K/cumm Imm gran abs 1.2 (H) 0.0 - 0.1 K/cumm Lymphocyte abs 0.7 (L) 0.8 - 3.3 K/cumm Monocyte abs 0.4 0.2 - 0.8 K/cumm Eosinophil abs 0.3 0.0 - 0.5 K/cumm Neutrophil pct 83.6 % Lymphocyte pct 4.3 % Monocyte pct 2.6 % Eosinophil pct 1.7 % Neutrophilic metamyelocytes 5.2 % Myelocytes 2.6 % Transthoracic Echo (TTE) With Bubble Study Collection Time: 06/13/22 9:34 AM Result Value Ref Range LV EF 65 % POCT glucose Collection Time: 06/13/22 9:38 AM Result Value Ref Range Glucose, POC 215 (H) 70 - 199 mg/dL Blood gas, arterial Collection Time: 06/13/22 9:41 AM Result Value Ref Range pH, Art 7.40 7.35 - 7.45 PCO2, Arterial 40 35 - 45 mmHg PO2, Arterial 66 (L) 83 - 108 mmHg HCO3 Art (Calculated) 26 20 - 30 mmol/L BE, art 0 mmol/L O2 Sat Art (Measured) 93 90 - 95 % Lactate, whole blood Collection Time: 06/13/22 9:41 AM Result Value Ref Range Lactate, bld 1.0 0.7 - 2.0 mmol/L Potassium, whole blood Collection Time: 06/13/22 9:41 AM Result Value Ref Range Potassium, bld 5.7 (H) 3.3 - 4.9 mmol/L Blood gas, arterial Collection Time: 06/13/22 12:20 PM Result Value Ref Range pH, Art 7.40 7.35 - 7.45 PCO2, Arterial 42 35 - 45 mmHg PO2, Arterial 60 (L) 83 - 108 mmHg HCO3 Art (Calculated) 27 20 - 30 mmol/L BE, art 2 mmol/L O2 Sat Art (Measured) 90 90 - 95 % POCT glucose Collection Time: 06/13/22 12:29 PM Result Value Ref Range Glucose, POC 129 70 - 199 mg/dL I have reviewed radiology images from last 24 hours: Pertinent findings include: CXR 06/13 with bilateral opacities improved from 06/12 with persistent bibasilar atelectasis, small left pleural effusion per my read Assessment/Plan Acute hypoxemic respiratory failure (HCC) Assessment & Plan Mr. Garvin is a 51 y/o M with medical history most significant for CAD, DM1, ESRD on PD, initially presenting for complex PCI, found to have cholecystitis, now in CCU with cardiogenic shock. Pulmonary is consulted for hypoxemic respiratory failure. Problem List: - Acute hypoxemic respiratory failure, secondary to cardiogenic pulmonary edema, atelectasis - Cardiogenic shock, NSTEMI s/p complex PCI, impella - BEN on home CPAP - Acute cholecystitis, meropenem/vancomycin Acute hypoxemic respiratory failure continues to be most consistent with a combination of cardiogenic pulmonary edema and lower lobe atelectasis with improvement following diuresis; net negative 2L yesterday, on 40% FiO2 from 70% over the past few days. Agree with aggressive diuresis as tolerated and continuation of lung protective ventilation (Pplat 25, drive 15 today). Recommendations: - Continue diuresis as tolerated - Continue lung protective ventilation keeping plat pressures < 30 - Continue to wean FIO2 as tolerated - If desat on the monitor obtain an ABG at the same time, the pulse ox seems to be reading a few % lower than synchronous blood gas - Continue antibiotics per primary team Pulmonary will continue to follow. Please call manager field investigations pulmonary consult fellow with additional questions or concerns. Sandrine Myers MD Pulmonary and Critical Care, PGY-4 Cosigned by Girish Grant MD at 06/13/2022 3:02 PM CDT Associated attestation - Girish Grant MD - 06/13/2022 3:02 PM CDT I have seen and examined the patient on 06/13/22. I agree with the findings and plan of care as documented in the resident's/fellow's note. and as discussed with the resident/fellow.. * Consults, Subsequent - Miriam Driver MD - 06/13/2022 1:55 PM CDT Nephrology SLED/CRRT Procedure Note Date of Service: 06/13/2022 I saw and evaluated the patient during CRRT. 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 No recent issues with clotting. On systemic heparin Treatment Type: Continuous veno-venous hemodiafiltration Machine Type: Prismaflex Filter Type: M150 Dialysate Fluid: NxStage 4Potassium/2.5Calcium Pre-Pump Replacement Fluid: NxStage 4Potassium/2.5Calcium Flow Rates Blood Flow Rate (mL/min): 200 mL/min Dialysate Flow Rate (mL/hr): 1400 mL/hr Pre-Pump Replacement Rate (mL/hr): 1400 mL/hr Heparin Syringe Rate (unit/hr): 1100 unit/hr Patient Fluid Removal Set Rate (mL/hr): 150 mL/hr Pressures Access Pressure (mmHg): -95 mmHg Filter Pressure (mmHg): 205 mmHg Effluent Pressure (mmHg): 62 mmHg Return Pressure (mmHg): 100 mmHg Trans-Membrane Pressure (mmHg): 90 mmHg Delta P (mmHg): 60 mmHg Off Reason: Access issues 24hr Min/Max: Temp Min: 35.8 ??C (96.4 ??F) Max: 37.1 ??C (98.8 ??F) Pulse Min: 62 Max: 87 Resp Min: 20 Max: 27 SpO2 Min: 92 % Max: 100 % Most Recent: BP 146/57 (Patient Position: Lying) Comment (BP Location): A line Pulse 70 Temp 36.8 ??C (98.2 ??F) (Temporal) Resp 20 Ht 177.8 cm (5' 10 ) Wt 131.9 kg (290 lb 12.6 oz) SpO2 96% BMI 41.72 kg/m?? I/O last 2 completed shifts: In: 2676.5 [I.V.:641.5; NG/GT:1425; IV Piggyback:610] Out: 4709 [Urine:145; Other:4104; Stool:460] I/O this shift: In: 1170.5 [I.V.:265.5; Other:500; NG/GT:295; IV Piggyback:110] Out: 1743 [Urine:8; Other:1785] Medications, laboratory findings, and imaging studies reviewed. Medications: [Held by Provider] amLODIPine, 10 mg, oral, Daily aspirin, 81 mg, feeding tube, Daily atorvastatin, 80 mg, feeding tube, Daily calcitRIOL, 0.25 mcg, feeding tube, Daily [Held by Provider] calcium acetate(phosphat bind), 667 mg, oral, QID chlorhexidine, 15 mL, mouth/throat, BID [Held by Provider] cloNIDine, 0.1 mg, oral, BID clopidogreL, 75 mg, feeding tube, Daily docusate, 100 mg, feeding tube, Daily [Held by Provider] ergocalciferol, 50,000 Units, oral, Weekly ezetimibe, 10 mg, feeding tube, Daily gentamicin, , topical, Daily [Held by Provider] hydrALAZINE, 100 mg, oral, Q8H insulin glargine, 33 Units, subcutaneous, QAM insulin lispro, 0-10 Units, subcutaneous, Q4H ASHLEY insulin lispro, 5 Units, subcutaneous, Q4H [Held by Provider] isosorbide mononitrate ER, 30 mg, oral, Daily meropenem, 1,000 mg, intravenous, Q12H ASHLEY [Held by Provider] metoprolol tartrate, 12.5 mg, oral, Q6H [Held by Provider] nystatin, 500,000 Units, swish & spit, QID pantoprazole, 40 mg, intravenous, BID polyethylene glycol, 17 g, feeding tube, BID [Held by Provider] ranolazine ER, 500 mg, oral, BID senna, 8.8 mg, oral, Nightly [Held by Provider] terazosin, 2 mg, oral, Nightly vancomycin, 15 mg/kg, intravenous, Q24H dexmedeTOMIDine, 0-1.5 mcg/kg/hr, Last Rate: Stopped (06/10/22 2300) peritoneal fluid with or without additives for CAPD, , Last Rate: 500 mL/hr at 06/13/22 1047 fentaNYL, 0-400 mcg/hr, Last Rate: 100 mcg/hr (06/13/22 1327) heparin, 0-2,000 Units/hr, Last Rate: 1,100 Units/hr (06/13/22 0700) heparin, 0-33 Units/kg/hr, Last Rate: 7.5 Units/kg/hr (06/13/22 1300) midazolam, 0-12 mg/hr, Last Rate: Stopped (06/13/22 1327) nitroglycerin, 0-400 mcg/min, Last Rate: Stopped (06/05/22 2100) norepinephrine, 0-2 mcg/kg/min (Dosing Weight), Last Rate: Stopped (06/11/22 0400) NxStage 3-potassium/3-calcium, 1,400 mL/hr, Last Rate: 1,400 mL/hr (06/13/22 1318) NxStage 3-potassium/3-calcium, 1,400 mL/hr, Last Rate: 1,400 mL/hr (06/13/22 1318) propofol, 0-50 mcg/kg/min, Last Rate: 20 mcg/kg/min (06/13/22 1300) sodium chloride 0.9%, 10 mL/hr, Last Rate: 10 mL/hr (06/12/22 0834) sodium chloride 0.9%, 10 mL/hr, Last Rate: 10 mL/hr (06/09/22 0700) sodium chloride 0.9%, 10 mL/hr sodium chloride 0.9%, 10 mL/hr, Last Rate: 10 mL/hr (06/09/22 0700) sodium chloride 0.9%, 6 mL/hr, Last Rate: 6 mL/hr (06/10/22 1700) sodium chloride 0.9%, 1,000 mL sodium chloride 0.9%, 1,000 mL sodium chloride 0.9%, 3-12 mL/hr sodium chloride 0.9%, 3-12 mL/hr sodium chloride 0.9%, 3-12 mL/hr, Last Rate: 3 mL/hr (06/13/22 1200) Recent Labs Lab Units 06/13/2233 06/12/22204606/12/22 0802 WBC K/cumm 15.6* 14.6* 12.5* HEMOGLOBIN g/dL 7.7* 8.1* 7.5* PLATELETS K/cumm 191 207 174 Recent Labs Lab Units 06/13/2233 06/12/22204606/12/22 0802 06/11/22201106/11/22 0848 06/10/22 2227 SODIUM mmol/L 135 134* 135 135 < > 136 POTASSIUM PLASMA mmol/L 5.6* 5.1* 4.4 4.7 < > 4.9 CHLORIDE mmol/L 98 101 101 101 < > 99 CO2 mmol/L 26 24 26 23 < > 25 BUN SERUM mg/dL 19 19 23 28* < > 20 CREATININE mg/dL 2.26* 2.22* 2.45* 3.01* < > 2.33* CALCIUM mg/dL 8.7 8.7 8.4* 8.1* < > 8.6 MAGNESIUM mg/dL 2.8* 2.7* 2.5 2.5 < > 2.5 PHOSPHORUS PLASMA mg/dL -- 3.5 -- 4.4 -- 3.6 < > = values in this interval not displayed. Continue CVVHF for now Will consider transtioning to SLED in the following days, if BP remains stable On systemic heparin Consult 1: After 4 PM on , after 12 PM on Monday, and all day Monday, please contact on-call renal fellow at with questions. * Consults, Subsequent - Kellee Magallanes MD - 06/13/2022 12:44 PM CDT Endocrinology & Diabetes Progress Note Patient: Adelia Garvin Jr., 51 y.o. male (: 1970) Room: [place] [address]/[place] [address] ( ) LOS: 9 Adelia Garvin Jr. is a 51 y.o. male with PMHx CHF (EF 50% in 2017), atrial fibrillation not on OAC, HTN/HLD, CAD s/p PCI, ESRD on PD, hyperparathyroidism presenting with weakness, N/V, diarrhea and chest pain. He is scheduled for [facility] on 06/06. Diabetes service consulted for T1DM on insulin pump. Interval Events & Subjective He is still sedated intubated On TF at rate 45 ml/hr On CRRT BS readings are controlled except for one reading of 280 Diet: NPO Diet Recent Labs Lab Units 06/13/22 1229 06/13/22 0938 06/13/22 0933 06/13/22 0440 06/12/22 2326 06/12/22 2047 06/12/22 2044 06/12/22 1601 06/12/22 1136 06/12/22 0802 GLUCOSE mg/dL -- -- 217* -- -- 101 -- -- -- 157 POC GLUCOSE MONITOR mg/dL 129 215* -- 280* 123 -- 99 110 161 -- Interval Review of Systems Twelve point ROS reviewed and negative except as noted in HPI. All other systems negative. Vitals & Exam Temp: [36.8 ??C (98.2 ??F)-37.1 ??C (98.8 ??F)] 36.8 ??C (98.2 ??F) Pulse: [72-87] 72 Resp: [20-21] 20 SpO2: [92 %-97 %] 95 % Arterial Line BP: (101-148)/(41-56) 115/46 FiO2 (%): [40 %] 40 % I/O this shift: In: 1141.5 [I.V.:236.5; Other:500; NG/GT:295; IV Piggyback:110] Out: 1593 [Urine:8; Other:1635] Physical Exam Gen : sedated, intubated, doesn't follow commands Eyes : conjunctiva clear, anicteric Pulm : intubated , bilateral crackles Extr : Bilateral pitting edema Skin : turgor normal, no rashes/wounds/lesions Neuro : sedated, doesn't follow commands Data Medications, labs, imaging, and diagnostics independently reviewed in Epic and commented on below. Lab Results Component Value Date TSH 0.80 03/21/2017 Lab Results Component Value Date CHOL 149 06/04/2022 TRIG 248 (H) 06/12/2022 HDL 34 (L) 06/04/2022 LDLCALC 82 06/04/2022 Lab Results Component Value Date 25HYDROVITD 22.7 (L) 03/22/2017 Lab Results Component Value Date HGBA1C 7.8 (H) 06/04/2022 Assessment & Plan 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, with prison use of insulin, complicated by ESRD on PD, CAD s/p PCI, CHF - HbA1c 7.4% - Uses Omnipod and Dexcom G6 at home, not currently on this- doesn't have the supplies -On significantly higher basal rates on pump at night due to peritoneal dialysis -home settings: Basal rate 0330 >>1.7 0800 >> 0.8 2000 >> 5.8 ICR1:6.5 ISF1:25 [id number] TIA 4 Currently on TF Glucerna 1.5 ( CHO 133) Recommendations: - please decrease Lantus to 30 units qAM - Humalog 5 units Q4hrs - Resistant correctional Humalog q4 hrs - POC glucoses q4hrs Discharge recommendations: Start Omnipod insulin pump at pre-hospital settings #Acute hypoxic respiratory failure #ESRD on PD at home - on CRRT ## Discharge Planning - Follow-up with home green house manager We will sign off, we are happy to come back on board once he is back on his PD -- Kellee Magallanes MD Endocrinology, Metabolism, & Lipid Research Contact Info: New Consults: [phone]) General Endocrine (Non-Diabetes): [phone] (Check 'Treatment Team' assignment for Diabetes 1 vs 2 vs 3) Diabetes 1: Diabetes Fellow: [phone] Diabetes 2: Dora Delarosa, CHIEF AIRLINE RADIO OPERATOR: [phone] Diabetes 3: See Treatment Team Provider (or call Dora Delarosa, above) Diabetes After-Hours & Weekends: Diabetes Fellow Cosigned by Bryce Langley MD at 06/13/2022 12:55 PM CDT Associated attestation - Bryce Langley MD - 06/13/2022 12:55 PM CDT I have seen and examined the patient on 06/13/22. I agree with the findings and plan of care as documented in the resident's/fellow's note. I spent a total of 15 minutes of which more than 50% of thetime was spent in counseling and coordination of care. This time included review of the patient's chart, glucose flowsheet, recent laboratory data and bedside discussion with the patient. Bryce Langley MD, [facility] Biology Department Chairpublishing systems analyst Division of Endocrinology, Metabolism & Lipid Research * Plan of Care - Robert Taylor RN - 06/13/2022 8:55 AM CDT Goals: Clinical Goals for the Shift: Trend labs, i&o,monitor dialysis Summary: Problem: Health Behavior: Goal: Understanding of discharge needs will improve Outcome: Progressing Problem: Lack of Knowledge: Goal: Ability to state ways to decrease the risk of falls will improve Outcome: Progressing Problem: Safety: Goal: Will remain free from falls Outcome: Progressing Goal: Will remain free from injury from falls Outcome: Progressing Goal: Will remain free from falls and injury in home environment Outcome: Progressing Problem: Lack of Knowledge: Goal: Knowledge of disease or condition and prescribed therapeutic regimen will improve Outcome: Progressing Problem: Coping: Goal: Level of anxiety will decrease Outcome: Progressing Problem: Sensory: Goal: Pain level will decrease Outcome: Progressing Problem: Lack of Knowledge: Goal: Ability to describe self-care measures that may prevent or decrease complications will improve Outcome: Progressing Goal: Knowledge of disease or condition will improve Outcome: Progressing Goal: Knowledge of the prescribed therapeutic regimen will improve Outcome: Progressing Goal: Knowledge of prevention and discharge planning will improve Outcome: Progressing Problem: Coping: Goal: Ability to adjust to condition or change in health will improve Outcome: Progressing Problem: Fluid Volume: Goal: Ability to maintain a balanced intake and output will improve Outcome: Progressing Problem: Health Behavior: Goal: Ability to identify and alter actions that are detrimental to health will improve Outcome: Progressing Goal: Ability to identify and utilize available resources and services will improve Outcome: Progressing Goal: Ability to manage health-related needs will improve Outcome: Progressing Problem: Nutritional: Goal: Maintenance of adequate nutrition will improve Outcome: Progressing Goal: Progress toward achieving an optimal weight will improve Outcome: Progressing Problem: Physical Regulation: Goal: Complications related to the disease process, condition or treatment will be avoided or minimized Outcome: Progressing Goal: Diagnostic test results will improve Outcome: Progressing Problem: Skin Integrity: Goal: Risk for impaired skin integrity will decrease Outcome: Progressing Problem: Lack of Knowledge: Goal: Ability to develop a pain control plan will improve Outcome: Progressing Goal: Ability to identify pain intensity on a pain scale and rate it consistently will improve Outcome: Progressing Goal: Ability to notify healthcare provider of pain before it becomes unmanageable or unbearable will improve Outcome: Progressing Problem: Medication: Goal: Satisfaction with pain management regimen will improve Outcome: Progressing Problem: Sensory: Goal: Ability to identify factors that increase the pain will improve Outcome: Progressing Goal: Pain level will decrease Outcome: Progressing Problem: Activity: Goal: Ability to return to normal activity level will improve Outcome: Progressing Problem: Lack of Knowledge: Goal: Knowledge of the prescribed therapeutic regimen will improve Outcome: Progressing Problem: Coping: Goal: Ability to cope will improve Outcome: Progressing Problem: Health Behavior: Goal: Identification of resources available to assist in meeting health care needs will improve Outcome: Progressing Problem: Sensory: Goal: Pain level will decrease Outcome: Progressing Problem: Cardiac: Goal: Ability to maintain an adequate cardiac output will improve Outcome: Progressing Goal: Hemodynamic stability will improve Outcome: Progressing Problem: Lack of Knowledge: Goal: Ability to state signs and symptoms to report to health care provider will improve Outcome: Progressing Goal: Knowledge of the prescribed therapeutic regimen will improve Outcome: Progressing Goal: Mental status will improve Outcome: Progressing Problem: Fluid Volume: Goal: Ability to achieve and maintain adequate urine output will improve Outcome: Progressing Problem: Respiratory: Goal: Respiratory status will improve Outcome: Progressing Problem: Lack of Knowledge: Goal: Verbalization of understanding the information provided will improve Outcome: Progressing Problem: Lack of Knowledge: Goal: Ability to develop a pain control plan will improve Outcome: Progressing Goal: Ability to identify pain intensity on a pain scale and rate it consistently will improve Outcome: Progressing Goal: Ability to notify healthcare provider of pain before it becomes unmanageable or unbearable will improve Outcome: Progressing Problem: Medication: Goal: Satisfaction with pain management regimen will improve Outcome: Progressing Problem: Sensory: Goal: Ability to identify factors that increase the pain will improve Outcome: Progressing Goal: Pain level will decrease Outcome: Progressing * Plan of Care - Joyce Begum RRT - 06/13/2022 4:03 AM CDT Patient on mechanical ventilation. Wean as tolerated. * Plan of Care - Margaret Escobar RN - 06/13/2022 3:37 AM CDT Goals: Clinical Goals for the Shift: Trend labs, i&o,monitor dialysis Summary: Titrate mechanical ventilation, nai porter Md notified will continue to monitor Problem: Health Behavior: Goal: Understanding of discharge needs will improve Outcome: Not Progressing Problem: Lack of Knowledge: Goal: Ability to state ways to decrease the risk of falls will improve Outcome: Not Progressing Problem: Safety: Goal: Will remain free from falls Outcome: Progressing Problem: Cardiac: Goal: Hemodynamic stability will improve Outcome: Progressing Problem: Lack of Knowledge: Goal: Mental status will improve Outcome: Not Progressing Problem: Fluid Volume: Goal: Ability to achieve and maintain adequate urine output will improve Outcome: Not Progressing Problem: Respiratory: Goal: Respiratory status will improve Outcome: Progressing * Consults, Subsequent - Ghazala Lepe MD - 06/12/2022 5:44 PM CDT Nephrology SLED/CRRT Procedure Note Date of Service: 06/12/2022 Currently on 1 pressor. More stable this AM. Continue CRRT for now and reassess in AM. Can change to SLED as he becomes hemodynamically stable. Consider PD next week. Will need catheter care while inhouse if not in use. I saw and evaluated the patient during CRRT. 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 On low-dose vasopressin at this time. Tolerating CVVHDF with fluid removal rate of 200 ml/hour. Remains with 2+ edema. 700cc UOP noted. Treatment Type: Continuous veno-venous hemodiafiltration Machine Type: Prismaflex Filter Type: M150 Dialysate Fluid: NxStage 4Potassium/2.5Calcium Pre-Pump Replacement Fluid: NxStage 4Potassium/2.5Calcium Flow Rates Blood Flow Rate (mL/min): 1500 mL/min Dialysate Flow Rate (mL/hr): 1400 mL/hr Pre-Pump Replacement Rate (mL/hr): 1400 mL/hr Heparin Syringe Rate (unit/hr): 1100 unit/hr Patient Fluid Removal Set Rate (mL/hr): 200 mL/hr Pressures Access Pressure (mmHg): -52 mmHg Filter Pressure (mmHg): 86 mmHg Effluent Pressure (mmHg): -37 mmHg Return Pressure (mmHg): 34 mmHg Trans-Membrane Pressure (mmHg): 83 mmHg Delta P (mmHg): 30 mmHg Off Reason: Access issues 24hr Min/Max: Temp Min: 35.8 ??C (96.4 ??F) Max: 36.1 ??C (97 ??F) Pulse Min: 56 Max: 78 Resp Min: 18 Max: 21 SpO2 Min: 87 % Max: 100 % Most Recent: BP 146/57 (Patient Position: Lying) Comment (BP Location): A line Pulse 66 Temp (!) 35.9 ??C (96.6 ??F) (Temporal) Resp 20 Ht 177.8 cm (5' 10 ) Wt 133.7 kg (294 lb 12.1 oz) SpO2 100% BMI 42.29 kg/m?? I/O last 2 completed shifts: In: 2548.8 [I.V.:938.8; NG/GT:1000; IV Piggyback:610] Out: 268 [Urine:700; Other:1984] I/O this shift: In: 971.4 [I.V.:331.4; NG/GT:640] Out: 2179 [Urine:110; Other:2069] Medications, laboratory findings, and imaging studies reviewed. Medications: [Held by Provider] amLODIPine, 10 mg, oral, Daily aspirin, 81 mg, feeding tube, Daily atorvastatin, 80 mg, feeding tube, Daily calcitRIOL, 0.25 mcg, feeding tube, Daily [Held by Provider] calcium acetate(phosphat bind), 667 mg, oral, QID chlorhexidine, 15 mL, mouth/throat, BID [Held by Provider] cloNIDine, 0.1 mg, oral, BID clopidogreL, 75 mg, feeding tube, Daily docusate, 100 mg, feeding tube, Daily [Held by Provider] ergocalciferol, 50,000 Units, oral, Weekly ezetimibe, 10 mg, feeding tube, Daily [Held by Provider] hydrALAZINE, 100 mg, oral, Q8H insulin glargine, 33 Units, subcutaneous, QAM insulin lispro, 0-10 Units, subcutaneous, Q4H ASHLEY insulin lispro, 5 Units, subcutaneous, Q4H [Held by Provider] isosorbide mononitrate ER, 30 mg, oral, Daily meropenem, 1,000 mg, intravenous, Q12H ASHLEY [Held by Provider] metoprolol tartrate, 12.5 mg, oral, Q6H [Held by Provider] nystatin, 500,000 Units, swish & spit, QID pantoprazole, 40 mg, intravenous, BID polyethylene glycol, 17 g, feeding tube, BID [Held by Provider] ranolazine ER, 500 mg, oral, BID senna, 1 tablet, feeding tube, Daily [Held by Provider] terazosin, 2 mg, oral, Nightly vancomycin, 15 mg/kg, intravenous, Q24H dexmedeTOMIDine, 0-1.5 mcg/kg/hr, Last Rate: Stopped (06/10/22 2300) fentaNYL, 0-400 mcg/hr, Last Rate: 200 mcg/hr (06/12/22 170) heparin, 0-2,000 Units/hr, Last Rate: 1,100 Units/hr (06/12/22 1232) midazolam, 0-12 mg/hr, Last Rate: 1.5 mg/hr (06/12/22 170) nitroglycerin, 0-400 mcg/min, Last Rate: Stopped (06/05/22 2100) norepinephrine, 0-2 mcg/kg/min (Dosing Weight), Last Rate: Stopped (06/11/22 0400) NxStage 4-potassium/2.5-calcium, 1,400 mL/hr, Last Rate: 1,400 mL/hr (06/12/22 1729) NxStage 4-potassium/2.5-calcium, 1,400 mL/hr, Last Rate: 1,400 mL/hr (06/12/22 1731) propofol, 0-50 mcg/kg/min, Last Rate: 15 mcg/kg/min (06/12/22 1741) sodium chloride 0.9%, 10 mL/hr, Last Rate: 10 mL/hr (06/12/22 0834) sodium chloride 0.9%, 10 mL/hr, Last Rate: 10 mL/hr (06/09/22 07) sodium chloride 0.9%, 10 mL/hr sodium chloride 0.9%, 10 mL/hr, Last Rate: 10 mL/hr (06/09/22 07) sodium chloride 0.9%, 6 mL/hr, Last Rate: 6 mL/hr (06/10/22 170) sodium chloride 0.9%, 1,000 mL sodium chloride 0.9%, 3-12 mL/hr sodium chloride 0.9%, 3-12 mL/hr sodium chloride 0.9%, 3-12 mL/hr, Last Rate: 3 mL/hr (06/12/22 170) vasopressin, 0-0.06 Units/min, Last Rate: Stopped (06/12/22 0837) Recent Labs Lab Units 06/12/22 0802 06/11/22 2325 06/11/22 1521 WBC K/cumm 12.5* 13.5* 10.7* HEMOGLOBIN g/dL 7.5* 7.9* 7.6* PLATELETS K/cumm 174 188 175 Recent Labs Lab Units 06/12/22 0802 06/11/22201106/11/22 0848 06/10/22 2227 06/10/22 0752 06/09/22 2033 SODIUM mmol/L 135 135 134* 136 < > 134* POTASSIUM PLASMA mmol/L 4.4 4.7 4.8 4.9 < > 4.4 CHLORIDE mmol/L 101 101 100 99 < > 99 CO2 mmol/L 26 23 23 25 < > 25 BUN SERUM mg/dL 23 28* 22 20 < > 24 CREATININE mg/dL 2.45* 3.01* 2.53* 2.33* < > 2.82* CALCIUM mg/dL 8.4* 8.1* 8.4* 8.6 < > 8.3* MAGNESIUM mg/dL 2.5 2.5 2.5 2.5 < > 2.4 PHOSPHORUS PLASMA mg/dL -- 4.4 -- 3.6 -- 3.2 < > = values in this interval not displayed. May need catheter care of PD cath while not in use. Consider transition to SLED in am if off pressors. Can transition back ot PD as he stabilizes. May be able augment UOP with diuretics as needed. Ghazala Lepe MD Division of Nephology Consult 1: After 4 PM on , after 12 PM on Monday, and all day Monday, please contact on-call renal fellow at with questions. * Consults, Ayah Reyes MD - 06/12/2022 3:40 PM CDT Endocrine Brief Note Adelia Garvin Jr. is a 51 y.o. male with history of T1DM on insulin pump, atrial fibrillation, HTN, HLD, CAD s/p PCI, ESRD on PD, hyperparathyroidism, presenting with weakness, N/V, diarrhea and chest pain. His hospital stay was complicated by respiratory failure requiring intubation, cardiogenic shock, agitation. Endocrinology is consulted for glycemic management. Chart reviewed. Discussed plan of care with primary team. Patient not seen or examined today. Glucerna rate increased to goal - 45 ml/h. BG reviewed. Diet: NPO Diet Recent Labs Lab Units 06/12/22 1136 06/12/22 0802 06/12/22 0801 06/12/22 0457 06/11/22 2332 06/11/22 2012 06/11/22 2007 06/11/22 1520 06/11/22 1210 06/11/22 0848 GLUCOSE mg/dL -- 157 -- -- -- 185 -- -- -- 175 POC GLUCOSE MONITOR mg/dL 161 -- 143 163 206* -- 169 130 142 -- Recommendations: - continue glargine 33 units QAM - increase lispro to 5 units Q4h to cover TF - HOLD if TF discontinued - continue resistant correction scale Q4h Ayah Hoang MD Endocrinology Fellow [phone] Cosigned by Ann Boston MD at 06/12/2022 3:41 PM CDT * Plan of Care - Manda Pickett RN - 06/12/2022 12:45 PM CDT Problem: Health Behavior: Goal: Understanding of discharge needs will improve Outcome: Progressing Problem: Lack of Knowledge: Goal: Ability to state ways to decrease the risk of falls will improve Outcome: Progressing Problem: Safety: Goal: Will remain free from falls Outcome: Progressing Goal: Will remain free from injury from falls Outcome: Progressing Goal: Will remain free from falls and injury in home environment Outcome: Progressing Problem: Lack of Knowledge: Goal: Knowledge of disease or condition and prescribed therapeutic regimen will improve Outcome: Progressing Problem: Coping: Goal: Level of anxiety will decrease Outcome: Progressing Problem: Sensory: Goal: Pain level will decrease Outcome: Progressing Problem: Lack of Knowledge: Goal: Ability to describe self-care measures that may prevent or decrease complications will improve Outcome: Progressing Goal: Knowledge of disease or condition will improve Outcome: Progressing Goal: Knowledge of the prescribed therapeutic regimen will improve Outcome: Progressing Goal: Knowledge of prevention and discharge planning will improve Outcome: Progressing Problem: Coping: Goal: Ability to adjust to condition or change in health will improve Outcome: Progressing Problem: Fluid Volume: Goal: Ability to maintain a balanced intake and output will improve Outcome: Progressing Problem: Health Behavior: Goal: Ability to identify and alter actions that are detrimental to health will improve Outcome: Progressing Goal: Ability to identify and utilize available resources and services will improve Outcome: Progressing Goal: Ability to manage health-related needs will improve Outcome: Progressing Problem: Nutritional: Goal: Maintenance of adequate nutrition will improve Outcome: Progressing Goal: Progress toward achieving an optimal weight will improve Outcome: Progressing Problem: Physical Regulation: Goal: Complications related to the disease process, condition or treatment will be avoided or minimized Outcome: Progressing Goal: Diagnostic test results will improve Outcome: Progressing Problem: Skin Integrity: Goal: Risk for impaired skin integrity will decrease Outcome: Progressing Problem: Lack of Knowledge: Goal: Ability to develop a pain control plan will improve Outcome: Progressing Goal: Ability to identify pain intensity on a pain scale and rate it consistently will improve Outcome: Progressing Goal: Ability to notify healthcare provider of pain before it becomes unmanageable or unbearable will improve Outcome: Progressing Problem: Medication: Goal: Satisfaction with pain management regimen will improve Outcome: Progressing Problem: Sensory: Goal: Ability to identify factors that increase the pain will improve Outcome: Progressing Goal: Pain level will decrease Outcome: Progressing Problem: Activity: Goal: Ability to return to normal activity level will improve Outcome: Progressing Problem: Lack of Knowledge: Goal: Knowledge of the prescribed therapeutic regimen will improve Outcome: Progressing Problem: Coping: Goal: Ability to cope will improve Outcome: Progressing Problem: Health Behavior: Goal: Identification of resources available to assist in meeting health care needs will improve Outcome: Progressing Problem: Sensory: Goal: Pain level will decrease Outcome: Progressing Problem: Cardiac: Goal: Ability to maintain an adequate cardiac output will improve Outcome: Progressing Goal: Hemodynamic stability will improve Outcome: Progressing Problem: Lack of Knowledge: Goal: Ability to state signs and symptoms to report to health care provider will improve Outcome: Progressing Goal: Knowledge of the prescribed therapeutic regimen will improve Outcome: Progressing Goal: Mental status will improve Outcome: Progressing Problem: Fluid Volume: Goal: Ability to achieve and maintain adequate urine output will improve Outcome: Progressing Problem: Respiratory: Goal: Respiratory status will improve Outcome: Progressing Problem: Lack of Knowledge: Goal: Verbalization of understanding the information provided will improve Outcome: Progressing Problem: Lack of Knowledge: Goal: Ability to develop a pain control plan will improve Outcome: Progressing Goal: Ability to identify pain intensity on a pain scale and rate it consistently will improve Outcome: Progressing Goal: Ability to notify healthcare provider of pain before it becomes unmanageable or unbearable will improve Outcome: Progressing Problem: Medication: Goal: Satisfaction with pain management regimen will improve Outcome: Progressing Problem: Sensory: Goal: Ability to identify factors that increase the pain will improve Outcome: Progressing Goal: Pain level will decrease Outcome: Progressing Goals: Clinical Goals for the Shift: monitor dialysis and lab work Summary: pt remains on dialysis, intubated and sedated. Pt dressings changed. Pt family educated onplan of care. All questions answered to satisfaction * Consults, Subsequent - Stacia Beard MD - 06/12/2022 9:03 AM CDT Pulmonary Daily Progress Subjective Chief complaint of respiratory failure. Interval History: FIO2 weaned to 50%. Current Facility-Administered Medications: acetaminophen (TYLENOL) tablet 325 mg, 325 mg, oral, Q4H PRN, Dewey Parra MD albuterol HFA (PROVENTIL HFA,VENTOLIN HFA,PROAIR HFA) 90 mcg/actuation inhaler 2 puff, 2 puff, inhalation, Q6H PRN (RT), Dewey Parra MD [Held by Provider] amLODIPine (NORVASC) tablet 10 mg, 10 mg, oral, Daily, Dewey Parra MD, 10 mg at 06/07/22 0802 aspirin chewable tablet 81 mg, 81 mg, feeding tube, Daily, Tyra De La Torre MD, 81 mg at 06/12/22 0840 atorvastatin (LIPITOR) tablet 80 mg, 80 mg, feeding tube, Daily, Tyra De La Torre MD, 80 mg at 06/12/22 0840 bisacodyL (DULCOLAX) suppository 10 mg, 10 mg, rectal, Daily PRN, Jeffrey Green MD bisacodyl EC (DULCOLAX EC) tablet 10 mg, 10 mg, oral, Daily PRN, Jeffrey Green MD calcitRIOL (ROCALTROL) 1 mcg/mL oral solution 0.25 mcg, 0.25 mcg, feeding tube, Daily, Tyra De La Torre MD, 0.25 mcg at 06/12/22 0841 [Held by Provider] calcium acetate(phosphat bind) (PHOSLO) capsule 667 mg, 667 mg, oral, QID, HoDewey MD, 667 mg at 06/07/22 0801 chlorhexidine (PERIDEX) 0.12 % solution 15 mL, 15 mL, mouth/throat, BID, Meme Castro MD, 15mL at 06/12/22 0839 [Held by Provider] cloNIDine (CATAPRES) tablet 0.1 mg, 0.1 mg, oral, BID, Anurag Mortensen MD, 0.1 mg at 06/07/22 0802 clopidogreL (PLAVIX) tablet 75 mg, 75 mg, feeding tube, Daily, Tyra De La Torre MD, 75 mg at 06/12/22 0840 dexmedeTOMIDine in 0.9% sodium chloride (PRECEDEX) 400 mcg/100 mL (4 mcg/mL) infusion (premix), 0-1.5 mcg/kg/hr, intravenous, Titrated, Robert Henry MD, Stopped at 06/10/22 2300 dextrose gel in packet 15 g, 15 g, oral, Q15 Min PRN OR dextrose (D10W) 10% bolus 250 mL, 250 mL, intravenous, Q15 Min PRN, Meme Castro MD dextrose 5% water flush 10 mL, 10 mL, intra-catheter, PRN, Jeffrey Green MD dextrose 5% water flush 10-30 mL, 10-30 mL, intra-catheter, PRN, Jeffrey Green MD docusate (COLACE) 10 mg/mL oral liquid 100 mg, 100 mg, feeding tube, Daily, Tyra De La Torre MD, 100mg at 06/12/22 0839 [Held by Provider] ergocalciferol (VITAMIN D) capsule 50,000 Units, 50,000 Units, oral, Weekly, Dewey Parra MD, 50,000 Units at 06/06/22 0820 ezetimibe (ZETIA) tablet 10 mg, 10 mg, feeding tube, Daily, Tyra De La Torre MD, 10 mg at 06/12/22 0840 fentaNYL (SUBLIMAZE) bolus from bag 50 mcg, 50 mcg, intravenous, Q15 Min PRN, Jeffrey Green MD, 50 mcg at 06/12/22 0903 fentaNYL (SUBLIMAZE) bolus from bag 50 mcg, 50 mcg, intravenous, Q15 Min PRN, Jeffrey Green MD, 50 mcg at 06/11/22 0930 fentaNYL 2500 mcg/50 mL cassette/syringe (premix), 0-400 mcg/hr, intravenous, Titrated, Jeffrey Green MD, Last Rate: 4 mL/hr at 06/12/22 0800, 200 mcg/hr at 06/12/22 0800 fluticasone propionate (FLONASE) 50 mcg/actuation nasal spray 2 spray, 2 spray, each nostril, BID PRN, Dewey Parra MD glucagon injection 1 mg, 1 mg, intramuscular, Q30 Min PRN, Meme Castro MD [facility], , , q2h PRN AND heparin 1,000 unit/mL injection 1.5- 6.9 mL, 1.5-6.9 mL, intra-catheter, Q2H PRN, James Horvath MD heparin 1,000 unit/mL injection syringe, 0-2,000 Units/hr, dialysis circuit, Continuous, Stopped (Dual Sign) at 06/12/22 0700 AND [COMPLETED] CBC without differential, , , STAT AND [COMPLETED] Protime-INR, , , STAT AND [COMPLETED] aPTT, , , STAT AND [START ON 06/14/2022] CBC without differential, , , q72h AND aPTT, , , PRN/Timed, James Horvath MD [Held by Provider] hydrALAZINE (APRESOLINE) tablet 100 mg, 100 mg, oral, Q8H, Anurag Mortensen MD insulin glargine (LANTUS, SEMGLEE) 100 unit/mL injection 33 Units, 33 Units, subcutaneous, [facility]ENTERMatthew Payal Rohit, MD, 33 Units at 06/12/22 0837 insulin lispro (HumaLOG, ADMELOG) 100 unit/mL injection 0-10 Units, 0-10 Units, subcutaneous, Q4H [facility] Pay[facility] Rohit, MD, 4 Units at 06/12/22 0459 insulin lispro (HumaLOG, ADMELOG) 100 unit/mL injection 5 Units, 5 Units, subcutaneous, Q4H, Lavern Morrison MD, 5 Units at 06/12/22 0837 [Held by Provider] isosorbide mononitrate ER (IMDUR) extended release tablet 30 mg, 30 mg, oral, Daily, Dewey Parra MD, 30 mg at 06/07/22 0801 lidocaine (LIDODERM) 5 % patch 1 patch, 1 patch, transdermal, Daily PRN, Dewey Parra MD meropenem (MERREM) 1,000 mg/110 mL in sodium chloride 0.9% (premix) 1,000 mg, 1,000 mg, intravenous, Q12H Wil RAMIREZ Sowmya, MD, Last Rate: 220 mL/hr at 06/12/22 0001, 1,000 mg at 06/12/22 0001 [Held by Provider] metoprolol tartrate (LOPRESSOR) immediate release tablet 12.5 mg, 12.5 mg, oral,Q6H, Anurag Mortensen MD midazolam (VERSED) 1 mg/mL in sodium chloride 0.9% (premix) solution, 0-12 mg/hr, intravenous, Titrated, Jeffrey Green MD, Last Rate: 2.5 mL/hr at 06/12/22 0800, 2.5 mg/hr at 06/12/22 0800 nitroglycerin in dextrose 5% 50 mg/250 mL (200 mcg/mL) infusion (premix), 0-400 mcg/min, intravenous, Titrated, Dewey Parra MD, Stopped at 06/05/22 2100 norepinephrine in 0.9% sodium chloride (LEVOPHED) 8,000 mcg/250 mL (32 mcg/mL) infusion (premix), 0-2 mcg/kg/min (Dosing Weight), intravenous, Titrated, Jeffrey Green MD, Stopped at 06/11/22 0400 NxStage 4-potassium/2.5-calcium solution, 1,400 mL/hr, CRRT, Continuous, James Horvath MD, Last Rate: 1,400 mL/hr at 06/12/22 0634, 1,400 mL/hr at 06/12/22 0634 NxStage 4-potassium/2.5-calcium solution, 1,400 mL/hr, CRRT, Continuous, James Horvath MD, Last Rate: 1,400 mL/hr at 06/11/22 1626, 1,400 mL/hr at 06/11/22 1626 [Held by Provider] nystatin 100,000 unit/mL oral suspension 500,000 Units, 500,000 Units, zbigniew & nayla, Janae MAGALLON Abdullah Bin, MD, 500,000 Units at 06/07/22 0802 ondansetron ODT (ZOFRAN-ODT) disintegrating tablet 4 mg, 4 mg, feeding tube, Q6H PRN OR ondansetron (ZOFRAN) injection 4 mg, 4 mg, intravenous, Q6H PRN, Tyra De La Torre MD pantoprazole (PROTONIX) 4 mg/mL injection 40 mg, 40 mg, intravenous, BID, Meme Castro MD, 40 mg at 06/12/22 0840 phenoL (CHLORASEPTIC) 1.4 % oral spray 1 spray, 1 spray, mouth/throat, Q2H PRN, Dewey Parra MD polyethylene glycol (MIRALAX) packet 17 g, 17 g, feeding tube, Daily PRN, Tyra De La Torre MD polyethylene glycol (MIRALAX) packet 17 g, 17 g, feeding tube, BID, Lavern Morrison MD, 17g at 06/12/22 0839 propofol (DIPRIVAN) 10 mg/mL infusion, 0-50 mcg/kg/min, intravenous, Titrated, Jeffrey Green MD, Last Rate: 16.9 mL/hr at 06/12/22 0800, 20 mcg/kg/min at 06/12/22 0800 ramelteon (ROZEREM) tablet 8 mg, 8 mg, feeding tube, Nightly PRN, Tyra De La Torre MD, 8 mg at 06/08/222040 [Held by Provider] ranolazine ER (RANEXA) extended release tablet 500 mg, 500 mg, oral, BID, HoDewey MD, 500 mg at 06/07/22 0801 senna (SENOKOT) tablet 1 tablet, 1 tablet, feeding tube, Daily, Lavern Morrison MD, 1 tablet at 06/12/22 0840 sodium chloride 0.9% infusion, 10 mL/hr, intravenous, Continuous, Champ Osborne MD PhD, Last Rate: 10 mL/hr at 06/12/22 0834, 10 mL/hr at 06/12/22 0834 sodium chloride 0.9% infusion, 10 mL/hr, intravenous, Continuous, Champ Osborne MD PhD, Last Rate: 10 mL/hr at 06/09/22 0700, 10 mL/hr at 06/09/22 0700 sodium chloride 0.9% infusion, 10 mL/hr, intravenous, Continuous, Jeffrey Green MD sodium chloride 0.9% infusion, 10 mL/hr, intravenous, Continuous, Jeffrey Green MD, Last Rate: 10 mL/hr at 06/09/22 0700, 10 mL/hr at 06/09/22 0700 sodium chloride 0.9% infusion, 6 mL/hr, intravenous, Continuous, Jeffrey Green MD, Last Rate:6 mL/hr at 06/10/22 1700, 6 mL/hr at 06/10/22 1700 sodium chloride 0.9% solution 1,000 mL, 1,000 mL, dialysis circuit, PRN, James Horvath MD sodium chloride 0.9% solution, 3-12 mL/hr, intra-catheter, Continuous, Jeffrey Green MD sodium chloride 0.9% solution, 3-12 mL/hr, intra-catheter, Continuous, Jeffrey Green MD sodium chloride 0.9% solution, 3-12 mL/hr, intra-catheter, Continuous, Jeffrey Green MD, LastRate: 3 mL/hr at 06/11/22 1900, 3 mL/hr at 06/11/22 1900 [Held by Provider] terazosin (HYTRIN) capsule 2 mg, 2 mg, oral, Nightly, Dewey Parra MD, 2 mg at 06/06/222018 vancomycin (VANCOCIN) 2,000 mg in sodium chloride 0.9% 500 mL IVPB, 15 mg/kg, intravenous, Q24H, Jeffrey Green MD, Last Rate: 260 mL/hr at 06/12/22 0001, 2,000 mg at 06/12/222350 vasopressin in 5% dextrose (VASOSTRICT) 20 unit/100 mL (0.2 unit/mL) infusion, 0-0.06 Units/min, intravenous, Titrated, Jeffrey Green MD, Stopped at 06/12/22 0837 Objective Vitals: 24hr Min/Max: Temp Min: 36 ??C (96.8 ??F) Max: 37.3 ??C (99.2 ??F) Pulse Min: 56 Max: 78 Resp Min: 18 Max: 22 SpO2 Min: 89 % Max: 97 % Most Recent : Vitals: 06/12/22 0835 BP: Pulse: 65 Resp: Temp: SpO2: I/O last 2 completed shifts: In: 2548.8 [I.V.:938.8; NG/GT:1000; IV Piggyback:610] Out: 2685 [Urine:700; Other:1985] I/O this shift: In: 101.2 [I.V.:61.2; NG/GT:40] Out: 604 [Urine:40; Other:564] Physical Exam: GEN: intubated, sedated HEENT: ETT in place PUL: clear to ausculation bilaterally CV: S1, S2 ABD: soft nontnender EXT: + edema, no cyanosis Lab/Radiology/Diagnostic Review: Recent Results (from the past 24 hour(s)) POCT glucose Collection Time: 06/11/22 12:10 PM Result Value Ref Range Glucose, POC 142 70 - 199 mg/dL Blood gas, arterial Collection Time: 06/11/22 12:11 PM Result Value Ref Range pH, Art 7.38 7.35 - 7.45 PCO2, Arterial 37 35 - 45 mmHg PO2, Arterial 139 (H) 83 - 108 mmHg HCO3 Art (Calculated) 22 20 - 30 mmol/L BE, art -3 mmol/L O2 Sat Art (Measured) 98 (H) 90 - 95 % POCT glucose Collection Time: 06/11/22 3:20 PM Result Value Ref Range Glucose, POC 130 70 - 199 mg/dL CBC without differential Collection Time: 06/11/22 3:21 PM Result Value Ref Range WBC 10.7 (H) 3.8 - 9.9 K/cumm Hgb 7.6 (L) 13.0 - 17.5 g/dL Hct 22.8 (L) 38.9 - 50.3 % Plt 175 150 - 400 K/cumm MPV 10.7 9.1 - 12.3 fL RBC 2.45 (L) 4.30 - 5.80 M/cumm MCV 93.1 81.3 - 96.4 fL MCH 31.0 27.1 - 33.3 pg MCHC 33.3 32.3 - 35.7 g/dL RDW CV 13.1 11.1 - 14.9 % RDW SD 44.3 35.7 - 48.1 fL NRBC abs 0.02 (H) 0.00 - 0.01 K/cumm Protime-INR Collection Time: 06/11/22 3:21 PM Result Value Ref Range PT 10.7 9.2 - 13.5 sec INR 1.0 0.9 - 1.2 aPTT Collection Time: 06/11/22 3:21 PM Result Value Ref Range aPTT 30 27 - 37 sec Blood gas, arterial Collection Time: 06/11/22 3:21 PM Result Value Ref Range pH, Art 7.39 7.35 - 7.45 PCO2, Arterial 39 35 - 45 mmHg PO2, Arterial 92 83 - 108 mmHg HCO3 Art (Calculated) 24 20 - 30 mmol/L BE, art -1 mmol/L O2 Sat Art (Measured) 96 (H) 90 - 95 % Lactate, whole blood Collection Time: 06/11/22 3:21 PM Result Value Ref Range Lactate, bld 0.9 0.7 - 2.0 mmol/L Potassium, whole blood Collection Time: 06/11/22 3:21 PM Result Value Ref Range Potassium, bld 4.5 3.3 - 4.9 mmol/L POCT glucose Collection Time: 06/11/22 8:07 PM Result Value Ref Range Glucose, POC 169 70 - 199 mg/dL Lipase Collection Time: 06/11/22 8:12 PM Result Value Ref Range Lipase 15 10 - 99 Units/L Beta-hydroxybutyrate Collection Time: 06/11/22 8:12 PM Result Value Ref Range Beta-Hydroxybutyrate 0.3 0.0 - 0.5 mmol/L Phosphorus Collection Time: 06/11/22 8:12 PM Result Value Ref Range Phosphorus, pl 4.4 2.3 - 4.5 mg/dL Triglycerides Collection Time: 06/11/22 8:12 PM Result Value Ref Range Triglycerides 345 (H) <=149 mg/dL Comprehensive metabolic panel Collection Time: 06/11/22 8:12 PM Result Value Ref Range Sodium 135 135 - 145 mmol/L Potassium, pl 4.7 3.3 - 4.9 mmol/L Chloride 101 97 - 110 mmol/L CO2 23 22 - 32 mmol/L Anion gap 11 2 - 15 mmol/L BUN 28 (H) 8 - 25 mg/dL Creatinine 3.01 (H) 0.80 - 1.30 mg/dL Glucose 185 70 - 199 mg/dL Calcium 8.1 (L) 8.5 - 10.3 mg/dL Bilirubin, total 0.9 0.1 - 1.2 mg/dL Protein, pl 5.5 (L) 6.5 - 8.5 g/dL Albumin 2.3 (L) 3.5 - 5.0 g/dL Alk phos 211 (H) 40 - 130 Units/L ALT 45 7 - 55 Units/L AST 95 (H) 10 - 50 Units/L Magnesium Collection Time: 06/11/22 8:12 PM Result Value Ref Range Magnesium 2.5 1.4 - 2.5 mg/dL eGFR Collection Time: 06/11/22 8:12 PM Result Value Ref Range eGFR 24 (L) 90 - 130 mL/min/1.73 m2 Lactate, whole blood Collection Time: 06/11/22 8:17 PM Result Value Ref Range Lactate, bld 0.8 0.7 - 2.0 mmol/L Blood gas, arterial Collection Time: 06/11/22 8:17 PM Result Value Ref Range pH, Art 7.38 7.35 - 7.45 PCO2, Arterial 39 35 - 45 mmHg PO2, Arterial 111 (H) 83 - 108 mmHg HCO3 Art (Calculated) 23 20 - 30 mmol/L BE, art -2 mmol/L O2 Sat Art (Measured) 98 (H) 90 - 95 % Blood gas, arterial Collection Time: 06/11/22 11:25 PM Result Value Ref Range pH, Art 7.37 7.35 - 7.45 PCO2, Arterial 41 35 - 45 mmHg PO2, Arterial 91 83 - 108 mmHg HCO3 Art (Calculated) 24 20 - 30 mmol/L BE, art -1 mmol/L O2 Sat Art (Measured) 97 (H) 90 - 95 % CBC with auto differential Collection Time: 06/11/22 11:25 PM Result Value Ref Range WBC 13.5 (H) 3.8 - 9.9 K/cumm Hgb 7.9 (L) 13.0 - 17.5 g/dL Hct 23.7 (L) 38.9 - 50.3 % Plt 188 150 - 400 K/cumm MPV 10.7 9.1 - 12.3 fL RBC 2.55 (L) 4.30 - 5.80 M/cumm MCV 92.9 81.3 - 96.4 fL MCH 31.0 27.1 - 33.3 pg MCHC 33.3 32.3 - 35.7 g/dL RDW CV 13.3 11.1 - 14.9 % RDW SD 45.1 35.7 - 48.1 fL NRBC abs 0.02 (H) 0.00 - 0.01 K/cumm Manual Differential Collection Time: 06/11/22 11:25 PM Result Value Ref Range Differential Manual Cells Counted 119 Neutrophil abs 10.8 (H) 1.7 - 6.5 K/cumm Imm gran abs 0.6 (H) 0.0 - 0.1 K/cumm Lymphocyte abs 1.4 0.8 - 3.3 K/cumm Monocyte abs 0.6 0.2 - 0.8 K/cumm Eosinophil abs 0.2 0.0 - 0.5 K/cumm Neutrophil pct 79.9 % Lymphocyte pct 10.1 % Monocyte pct 4.2 % Eosinophil pct 1.7 % Neutrophilic metamyelocytes 0.8 % Myelocytes 2.5 % Promyelocyte 0.8 % POCT glucose Collection Time: 06/11/22 11:32 PM Result Value Ref Range Glucose, POC 206 (H) 70 - 199 mg/dL aPTT Collection Time: 06/12/22 1:52 AM Result Value Ref Range aPTT 52 (H) 27 - 37 sec POCT glucose Collection Time: 06/12/22 4:57 AM Result Value Ref Range Glucose, POC 163 70 - 199 mg/dL Blood gas, arterial Collection Time: 06/12/22 6:21 AM Result Value Ref Range pH, Art 7.41 7.35 - 7.45 PCO2, Arterial 40 35 - 45 mmHg PO2, Arterial 86 83 - 108 mmHg HCO3 Art (Calculated) 26 20 - 30 mmol/L BE, art 1 mmol/L O2 Sat Art (Measured) 96 (H) 90 - 95 % POCT glucose Collection Time: 06/12/22 8:01 AM Result Value Ref Range Glucose, POC 143 70 - 199 mg/dL CBC with auto differential Collection Time: 06/12/22 8:02 AM Result Value Ref Range WBC 12.5 (H) 3.8 - 9.9 K/cumm Hgb 7.5 (L) 13.0 - 17.5 g/dL Hct 22.3 (L) 38.9 - 50.3 % Plt 174 150 - 400 K/cumm MPV 11.0 9.1 - 12.3 fL RBC 2.36 (L) 4.30 - 5.80 M/cumm MCV 94.5 81.3 - 96.4 fL MCH 31.8 27.1 - 33.3 pg MCHC 33.6 32.3 - 35.7 g/dL RDW CV 13.5 11.1 - 14.9 % RDW SD 45.5 35.7 - 48.1 fL NRBC abs 0.02 (H) 0.00 - 0.01 K/cumm Comprehensive metabolic panel Collection Time: 06/12/22 8:02 AM Result Value Ref Range Sodium 135 135 - 145 mmol/L Potassium, pl 4.4 3.3 - 4.9 mmol/L Chloride 101 97 - 110 mmol/L CO2 26 22 - 32 mmol/L Anion gap 8 2 - 15 mmol/L BUN 23 8 - 25 mg/dL Creatinine 2.45 (H) 0.80 - 1.30 mg/dL Glucose 157 70 - 199 mg/dL Calcium 8.4 (L) 8.5 - 10.3 mg/dL Bilirubin, total 0.7 0.1 - 1.2 mg/dL Protein, pl 5.8 (L) 6.5 - 8.5 g/dL Albumin 2.6 (L) 3.5 - 5.0 g/dL Alk phos 248 (H) 40 - 130 Units/L ALT 49 7 - 55 Units/L AST 95 (H) 10 - 50 Units/L Magnesium Collection Time: 06/12/22 8:02 AM Result Value Ref Range Magnesium 2.5 1.4 - 2.5 mg/dL Blood gas, arterial Collection Time: 06/12/22 8:02 AM Result Value Ref Range pH, Art 7.47 (H) 7.35 - 7.45 PCO2, Arterial 34 (L) 35 - 45 mmHg PO2, Arterial 71 (L) 83 - 108 mmHg HCO3 Art (Calculated) 25 20 - 30 mmol/L BE, art 1 mmol/L O2 Sat Art (Measured) 95 90 - 95 % aPTT Collection Time: 06/12/22 8:02 AM Result Value Ref Range aPTT 70 (H) 27 - 37 sec eGFR Collection Time: 06/12/22 8:02 AM Result Value Ref Range eGFR 31 (L) 90 - 130 mL/min/1.73 m2 Manual Differential Collection Time: 06/12/22 8:02 AM Result Value Ref Range Differential Manual Cells Counted 116 Neutrophil abs 9.1 (H) 1.7 - 6.5 K/cumm Imm gran abs 0.8 (H) 0.0 - 0.1 K/cumm Lymphocyte abs 1.9 0.8 - 3.3 K/cumm Monocyte abs 0.3 0.2 - 0.8 K/cumm Eosinophil abs 0.4 0.0 - 0.5 K/cumm Neutrophil pct 72.5 % Lymphocyte pct 15.5 % Monocyte pct 2.6 % Eosinophil pct 3.4 % Neutrophilic metamyelocytes 2.6 % Myelocytes 3.4 % CXR from 06/11/22 afternoon: Comparison made to examination of 06/11/2022 at 0543 hours Tip of the endotracheal tube projects approximately 5.5 cm above the boni. Nasogastric tube extends below the diaphragm with the tip excluded from the [id number]. Left internal jugular catheter projects at superior vena cava. Small bilateral pleural effusions and bibasilar atelectasis are stable. There is trace pulmonary edema, decreased from the prior examination. No pneumothorax is seen. Heart size and mediastinal contours unchanged. Electronically signed by: Hellen Schaffer M.D. Chest/abd/pelvis CT from 06/11/22: COMPARISON: 06/12/2022 FINDINGS: Chest: Imaged thyroid is heterogeneous with no dominant nodules. No thoracic lymphadenopathy. Mildly prominent mediastinal lymph nodes are favored to be reactive. Debris is seen within the trachea. There is respiratory motion at the lung bases. Heart size is mildly enlarged, stable. Hypodense blood relative to myocardium, consistent with anemia. Thoracic aorta and main pulmonary artery are normal in caliber. Vascular calcifications/stents are seen within the coronary arteries. Aortic calcifications are seen. No pleural effusion or pneumothorax. Bibasilar areas of airspace opacities with volume loss favored to be atelectasis, though this is increased in severity from 06/02/2022. Patchy areas of groundglass with possible tree-in-bud opacities are seen within the bilateral upper lobes, greater on the left, suboptimally evaluated due to motion artifacts. There is mild pulmonary edema. No suspicious pulmonary nodule. Abdomen/Pelvis: No focal hepatic lesion. Vicarious excretion of contrast within the gallbladder likely from prior coronary catheterization. Gallstones are seen within the gallbladder neck. No evidence of gallbladder wall thickening or pericholecystic fluid. No evidence of perforation. No biliary ductal dilatation. Spleen is normal. Pancreas is normal. Adrenals are normal. Kidneys are atrophic. Urinary bladder is decompressed with a Nguyen catheter. Prostate is present. Nasogastric tube terminates in the gastric antrum. There is no evidence of bowel wall thickening or obstruction. No abdominal or pelvic lymphadenopathy. No evidence of retroperitoneal hematoma. No free fluid or pneumoperitoneum. Abdominal aorta is normal in caliber with moderate atherosclerotic disease. Stranding is seen in the right groin likely from prior vascular access site. There is a prominent umbilicus with improving mild surrounding stranding and soft tissue thickening, slightly less prominent from 06/02/2022. There is a peritoneal dialysis catheter present that terminates in the upper quadrant. Degenerative changes within the spine. No suspicious solid osseous lesion. Schmorl's nodes are seen at the inferior plate of T6 and L4 and L5. Partially visualized are asymmetric right anterior neck muscles. IMPRESSION: 1. No CT explanation for the patient's anemia. 2. Mild pulmonary edema with biapical groundglass and possible tree-in-bud opacities which can be related to edema and/or aspiration. Progressive bibasilar airspace opacities that are favored to be predominantly atelectasis/aspiration due to volume loss, though evaluation for pneumonia is limited on this noncontrast examination. 3. Mildly dilated gallbladder with cholelithiasis, likely related to fasting state. No radiologic signs of cholecystitis. 4. Interval improvement of soft tissue thickening around the umbilicus which is atypical but can be seen in cellulitis, recommend correlation with physical exam. 5. Partially visualized asymmetric right anterior neck muscles might be related to positioning versus a small infiltrative hematoma. Impression/Plan: Acute hypoxemic respiratory failure (HCC) Assessment & Plan Mr. Garvin is a 51 year old man history of CAD, DM1, ESRD on PD, presented for complex PCI, foundto have cholecystitis, now in CCU with cardiogenic shock; pulmonary is consulted for hypoxemic respiratory failure. Primary team is concerned that his degree of hypoxemic respiratory failure is not fully explained by the volume overload, in light of his swan numbers and is wondering if there is component of non-cardiogenic edema. Overall the clinical picture and imaging is consistent with cardiogenic pulmonary edema, and his hypoxemia is improving over the last 48h with aggressive volume removal and treatment of his cardiogenic shock. There certainly could be a component of non-cardiogenic pulmonary edema (ie acute lung injury) caused by infection, aspiration or other process. Regardless, lung protective ventilation wouldbe the management and he is getting appropriate ventilation and his pressures on the vent are at goal (plat 25, drive 13). He is on meropenem for cholecystitis with no signs of worsening sepsis (blood cultures negative) and WBC has normalized. No evidence of intracardiac shunting or other reason for profound hypoxemia. Recommendations: - bibasilar consolidations more c/w atelectasis on CT scan. Suspect areas of ground glass in upper lungs are related to edema. - ETT on yesterday afternoon's CXR was 5.5 cm above boni - would recheck CXR today to make sure it is not higher -continue volume removal -continue lung protective ventilation keeping plat pressures < 30 -continue to wean FIO2 as tolerated -if desat on the monitor obtain an ABG at the same time, the pulse ox seems to be reading a few % lower than synchronous blood gas - continue antibiotics - on vanc and meropenem Stacia Beard MD * Plan of Care - Hung Morrison RRT - 06/12/2022 8:38 AM CDT Pt remains on AC/VC vent setting. I will assess and evaluate pt throughout the day * Plan of Care - Joyce Begum RRT - 06/12/2022 4:21 AM CDT Patient on mechanical ventilation. Wean as tolerated. * Plan of Care - Margaret Escobar RN - 06/12/2022 4:14 AM CDT Goals: Clinical Goals for the Shift: Initiated dialysis, trend labs, monitor hemodynamics, strict i&o Summary: L ij hematoma assessed, MD called to bedside for further assessment. 300 ml residual from NG, opted to keep tube feeds at 40ml/hr. Comfort/Sleep hygiene.Titrate vasso. Problem: Health Behavior: Goal: Understanding of discharge needs will improve Outcome: Not Progressing Problem: Lack of Knowledge: Goal: Ability to state ways to decrease the risk of falls will improve Outcome: Not Progressing Problem: Safety: Goal: Will remain free from falls Outcome: Progressing Problem: Fluid Volume: Goal: Ability to maintain a balanced intake and output will improve Outcome: Progressing Problem: Health Behavior: Goal: Ability to identify and alter actions that are detrimental to health will improve Outcome: Not Progressing * Consults, Subsequent - Ayah Hoang MD - 06/11/2022 4:36 PM CDT Endocrine Brief Note Adelia Garvin Jr. is a 51 y.o. male with history of T1DM on insulin pump, atrial fibrillation, HTN, HLD, CAD s/p PCI, ESRD on PD, hyperparathyroidism, presenting with weakness, N/V, diarrhea and chest pain. His hospital stay was complicated by respiratory failure requiring intubation, cardiogenic shock, agitation. Endocrinology is consulted for glycemic management. Chart reviewed. Discussed plan of care with primary team. Patient not seen or examined today. Patient was started on TF - Glucerna, continuous, goal 45 ml/h, currently 30 ml/h. Diet: NPO Diet Recent Labs Lab Units 06/11/22 1520 06/11/22 1210 06/11/22 0848 06/11/22 0846 06/11/22 0328 06/11/22 0049 06/10/22 2228 06/10/22 2227 06/10/22 1713 06/10/22 1313 GLUCOSE mg/dL -- -- 175 -- -- -- -- 158 -- -- POC GLUCOSE MONITOR mg/dL 130 142 -- 169 155 165 163 -- 106 189 Recommendations: - continue glargine 33 units QAM - start lispro 2 units Q4h to cover TF - HOLD if TF discontinued - continue resistant correction scale Q4h Ayah Hoang MD Endocrinology Fellow [phone] Cosigned by Ann Boston MD at 06/12/2022 8:45 AM CDT * Plan of Care - Manda Pickett RN - 06/11/2022 1:40 PM CDT Problem: Health Behavior: Goal: Understanding of discharge needs will improve Outcome: Progressing Problem: Lack of Knowledge: Goal: Ability to state ways to decrease the risk of falls will improve Outcome: Progressing Problem: Safety: Goal: Will remain free from falls Outcome: Progressing Goal: Will remain free from injury from falls Outcome: Progressing Goal: Will remain free from falls and injury in home environment Outcome: Progressing Problem: Lack of Knowledge: Goal: Knowledge of disease or condition and prescribed therapeutic regimen will improve Outcome: Progressing Problem: Coping: Goal: Level of anxiety will decrease Outcome: Progressing Problem: Sensory: Goal: Pain level will decrease Outcome: Progressing Problem: Lack of Knowledge: Goal: Ability to describe self-care measures that may prevent or decrease complications will improve Outcome: Progressing Goal: Knowledge of disease or condition will improve Outcome: Progressing Goal: Knowledge of the prescribed therapeutic regimen will improve Outcome: Progressing Goal: Knowledge of prevention and discharge planning will improve Outcome: Progressing Problem: Coping: Goal: Ability to adjust to condition or change in health will improve Outcome: Progressing Problem: Fluid Volume: Goal: Ability to maintain a balanced intake and output will improve Outcome: Progressing Problem: Health Behavior: Goal: Ability to identify and alter actions that are detrimental to health will improve Outcome: Progressing Goal: Ability to identify and utilize available resources and services will improve Outcome: Progressing Goal: Ability to manage health-related needs will improve Outcome: Progressing Problem: Nutritional: Goal: Maintenance of adequate nutrition will improve Outcome: Progressing Goal: Progress toward achieving an optimal weight will improve Outcome: Progressing Problem: Physical Regulation: Goal: Complications related to the disease process, condition or treatment will be avoided or minimized Outcome: Progressing Goal: Diagnostic test results will improve Outcome: Progressing Problem: Skin Integrity: Goal: Risk for impaired skin integrity will decrease Outcome: Progressing Problem: Lack of Knowledge: Goal: Ability to develop a pain control plan will improve Outcome: Progressing Goal: Ability to identify pain intensity on a pain scale and rate it consistently will improve Outcome: Progressing Goal: Ability to notify healthcare provider of pain before it becomes unmanageable or unbearable will improve Outcome: Progressing Problem: Medication: Goal: Satisfaction with pain management regimen will improve Outcome: Progressing Problem: Sensory: Goal: Ability to identify factors that increase the pain will improve Outcome: Progressing Goal: Pain level will decrease Outcome: Progressing Problem: Activity: Goal: Ability to return to normal activity level will improve Outcome: Progressing Problem: Lack of Knowledge: Goal: Knowledge of the prescribed therapeutic regimen will improve Outcome: Progressing Problem: Coping: Goal: Ability to cope will improve Outcome: Progressing Problem: Health Behavior: Goal: Identification of resources available to assist in meeting health care needs will improve Outcome: Progressing Problem: Sensory: Goal: Pain level will decrease Outcome: Progressing Problem: Cardiac: Goal: Ability to maintain an adequate cardiac output will improve Outcome: Progressing Goal: Hemodynamic stability will improve Outcome: Progressing Problem: Lack of Knowledge: Goal: Ability to state signs and symptoms to report to health care provider will improve Outcome: Progressing Goal: Knowledge of the prescribed therapeutic regimen will improve Outcome: Progressing Goal: Mental status will improve Outcome: Progressing Problem: Fluid Volume: Goal: Ability to achieve and maintain adequate urine output will improve Outcome: Progressing Problem: Respiratory: Goal: Respiratory status will improve Outcome: Progressing Problem: Lack of Knowledge: Goal: Verbalization of understanding the information provided will improve Outcome: Progressing Problem: Lack of Knowledge: Goal: Ability to develop a pain control plan will improve Outcome: Progressing Goal: Ability to identify pain intensity on a pain scale and rate it consistently will improve Outcome: Progressing Goal: Ability to notify healthcare provider of pain before it becomes unmanageable or unbearable will improve Outcome: Progressing Problem: Medication: Goal: Satisfaction with pain management regimen will improve Outcome: Progressing Problem: Sensory: Goal: Ability to identify factors that increase the pain will improve Outcome: Progressing Goal: Pain level will decrease Outcome: Progressing Goals: Clinical Goals for the Shift: wean pressors and vent Summary: Pt remains on vent, pt dialysis line clotting. Pt and pt family educated on plan of care. All questions answered to family satisfaction. * Consults, Subsequent - Vonnie Cody MD - 06/11/2022 12:40 PM CDT Nephrology SLED/CRRT Procedure Note Date of Service: 06/11/2022 Impella removed yesterday. Hypotensive overnight and required pressors. More stable this AM and vasopressin is being weaned off. Continue CRRT for now and reassess in AM. Can change to SLED tomorrow if hemodynamically stable. Consider PD next week. I saw and evaluated the patient during CRRT. 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 On low-dose vasopressin at this time. Tolerating CVVHDF with fluid removal rate of 200 ml/hour. Treatment Type: Continuous veno-venous hemodiafiltration Machine Type: Prismaflex Filter Type: M150 Dialysate Fluid: NxStage 4Potassium/2.5Calcium Pre-Pump Replacement Fluid: NxStage 4Potassium/2.5Calcium Flow Rates Blood Flow Rate (mL/min): 300 mL/min Dialysate Flow Rate (mL/hr): 1400 mL/hr Pre-Pump Replacement Rate (mL/hr): 1400 mL/hr Patient Fluid Removal Set Rate (mL/hr): 200 mL/hr Pressures Access Pressure (mmHg): -114 mmHg Filter Pressure (mmHg): 152 mmHg Effluent Pressure (mmHg): 69 mmHg Return Pressure (mmHg): 114 mmHg Trans-Membrane Pressure (mmHg): 41 mmHg Delta P (mmHg): 22 mmHg Off Reason: Access issues 24hr Min/Max: Temp Min: 35.5 ??C (95.9 ??F) Max: 36.8 ??C (98.2 ??F) Pulse Min: 48 Max: 87 Resp Min: 18 Max: 26 SpO2 Min: 87 % Max: 97 % Most Recent: BP 146/57 (Patient Position: Lying) Comment (BP Location): A line Pulse 69 Temp 36.8 ??C (98.2 ??F) (Axillary) Resp 22 Ht 177.8 cm (5' 10 ) Wt 130 kg (286 lb 9.6 oz) SpO2 94% BMI 41.12 kg/m?? I/O last 2 completed shifts: In: 2429 [I.V.:1334; NG/GT:470; IV Piggyback:625] Out: 4385 [Urine:80; Emesis/NG output:25; Other:4280] I/O this shift: In: 502.3 [I.V.:212.3; NG/GT:290] Out: 0 Medications, laboratory findings, and imaging studies reviewed. Medications: [Held by Provider] amLODIPine, 10 mg, oral, Daily aspirin, 81 mg, feeding tube, Daily atorvastatin, 80 mg, feeding tube, Daily calcitRIOL, 0.25 mcg, feeding tube, Daily [Held by Provider] calcium acetate(phosphat bind), 667 mg, oral, QID chlorhexidine, 15 mL, mouth/throat, BID [Held by Provider] cloNIDine, 0.1 mg, oral, BID clopidogreL, 75 mg, feeding tube, Daily docusate, 100 mg, feeding tube, Daily [Held by Provider] ergocalciferol, 50,000 Units, oral, Weekly ezetimibe, 10 mg, feeding tube, Daily [Held by Provider] hydrALAZINE, 100 mg, oral, Q8H insulin glargine, 33 Units, subcutaneous, QAM insulin lispro, 0-10 Units, subcutaneous, Q4H ASHLEY insulin lispro, 2 Units, subcutaneous, Q4H [Held by Provider] isosorbide mononitrate ER, 30 mg, oral, Daily meropenem, 1,000 mg, intravenous, Q12H ASHLEY [Held by Provider] metoprolol tartrate, 12.5 mg, oral, Q6H [Held by Provider] nystatin, 500,000 Units, swish & spit, QID pantoprazole, 40 mg, intravenous, BID polyethylene glycol, 17 g, feeding tube, BID [Held by Provider] ranolazine ER, 500 mg, oral, BID senna, 1 tablet, feeding tube, Daily [Held by Provider] terazosin, 2 mg, oral, Nightly vancomycin, 15 mg/kg, intravenous, Q24H dexmedeTOMIDine, 0-1.5 mcg/kg/hr, Last Rate: Stopped (06/10/22 2300) fentaNYL, 0-400 mcg/hr, Last Rate: 250 mcg/hr (06/11/22 1205) midazolam, 0-12 mg/hr, Last Rate: 2.5 mg/hr (06/11/22 1208) nitroglycerin, 0-400 mcg/min, Last Rate: Stopped (06/05/22 2100) norepinephrine, 0-2 mcg/kg/min (Dosing Weight), Last Rate: Stopped (06/11/22 0400) NxStage 4-potassium/2.5-calcium, 1,400 mL/hr, Last Rate: 1,400 mL/hr (06/11/22 0636) NxStage 4-potassium/2.5-calcium, 1,400 mL/hr, Last Rate: 1,400 mL/hr (06/11/22 0635) propofol, 0-50 mcg/kg/min, Last Rate: 40 mcg/kg/min (06/11/22 1227) sodium chloride 0.9%, 10 mL/hr, Last Rate: 10 mL/hr (06/11/22 1200) sodium chloride 0.9%, 10 mL/hr, Last Rate: 10 mL/hr (06/09/22 0700) sodium chloride 0.9%, 10 mL/hr sodium chloride 0.9%, 10 mL/hr, Last Rate: 10 mL/hr (06/09/22 0700) sodium chloride 0.9%, 6 mL/hr, Last Rate: 6 mL/hr (06/10/22 1700) sodium chloride 0.9%, 1,000 mL sodium chloride 0.9%, 3-12 mL/hr sodium chloride 0.9%, 3-12 mL/hr sodium chloride 0.9%, 3-12 mL/hr, Last Rate: 3 mL/hr (06/11/22 1200) vasopressin, 0-0.06 Units/min, Last Rate: Stopped (06/11/22 1145) Recent Labs Lab Units 06/11/22 0848 06/10/22 2227 06/10/22 0752 WBC K/cumm 10.4* 17.2* 10.2* HEMOGLOBIN g/dL 7.8* 9.0* 8.3* PLATELETS K/cumm 191 274 201 Recent Labs Lab Units 06/11/22 0848 06/10/22 2227 06/10/22 0752 06/09/22 2033 06/09/22 0757 06/08/222007 SODIUM mmol/L 134* 136 135 134* < > 136 POTASSIUM PLASMA mmol/L 4.8 4.9 4.3 4.4 < > 4.3 CHLORIDE mmol/L 100 99 100 99 < > 100 CO2 mmol/L 23 25 26 25 < > 27 BUN SERUM mg/dL 22 20 20 24 < > 42* CREATININE mg/dL 2.53* 2.33* 2.44* 2.82* < > 4.73* CALCIUM mg/dL 8.4* 8.6 8.4* 8.3* < > 8.4* MAGNESIUM mg/dL 2.5 2.5 2.4 2.4 < > 2.4 PHOSPHORUS PLASMA mg/dL -- 3.6 -- 3.2 -- 3.7 < > = values in this interval not displayed. Vonnie Cody MD publishing systems analyst Division of Nephology Consult 1: After 4 PM on , after 12 PM on Monday, and all day Monday, please contact on-call renal fellow at with questions. * Consults, Subsequent - Reji Rosales, Patricio Jauregui MD - 06/11/2022 9:42 AM CDT Pulmonary Daily Progress Subjective Chief complaint of hypoxemic resp failure. Interval History: Off epo. Impella out. PEEP down slightly to 10. Now on 70%/10. Increased WBC count - primary team culturing and adding vancomycin Plat [address] 14 this AM Most recent gas 7.42/36/115 Scheduled Meds:[Held by Provider] amLODIPine, 10 mg, oral, Daily aspirin, 81 mg, feeding tube, Daily atorvastatin, 80 mg, feeding tube, Daily calcitRIOL, 0.25 mcg, feeding tube, Daily [Held by Provider] calcium acetate(phosphat bind), 667 mg, oral, QID chlorhexidine, 15 mL, mouth/throat, BID [Held by Provider] cloNIDine, 0.1 mg, oral, BID clopidogreL, 75 mg, feeding tube, Daily docusate, 100 mg, feeding tube, Daily [Held by Provider] ergocalciferol, 50,000 Units, oral, Weekly ezetimibe, 10 mg, feeding tube, Daily [Held by Provider] hydrALAZINE, 100 mg, oral, Q8H insulin glargine, 33 Units, subcutaneous, QAM insulin lispro, 0-10 Units, subcutaneous, Q4H ASHLEY [Held by Provider] isosorbide mononitrate ER, 30 mg, oral, Daily meropenem, 1,000 mg, intravenous, Q12H ASHLEY [Held by Provider] metoprolol tartrate, 12.5 mg, oral, Q6H [Held by Provider] nystatin, 500,000 Units, swish & spit, QID pantoprazole, 40 mg, intravenous, BID polyethylene glycol, 17 g, feeding tube, BID [Held by Provider] ranolazine ER, 500 mg, oral, BID senna, 1 tablet, feeding tube, Daily [Held by Provider] terazosin, 2 mg, oral, Nightly vancomycin, 15 mg/kg, intravenous, Q24H Continuous Infusions:dexmedeTOMIDine, 0-1.5 mcg/kg/hr, Last Rate: Stopped (06/10/22 2300) fentaNYL, 0-400 mcg/hr, Last Rate: 200 mcg/hr (06/11/22899) midazolam, 0-12 mg/hr, Last Rate: 1.5 mg/hr (06/11/22899) nitroglycerin, 0-400 mcg/min, Last Rate: Stopped (06/05/22 2100) norepinephrine, 0-2 mcg/kg/min (Dosing Weight), Last Rate: Stopped (06/11/22 0400) NxStage 4-potassium/2.5-calcium, 1,400 mL/hr, Last Rate: 1,400 mL/hr (06/11/22 0636) NxStage 4-potassium/2.5-calcium, 1,400 mL/hr, Last Rate: 1,400 mL/hr (06/11/22 0635) propofol, 0-50 mcg/kg/min, Last Rate: 30 mcg/kg/min (06/11/22899) sodium chloride 0.9%, 10 mL/hr, Last Rate: 10 mL/hr (06/10/22 170) sodium chloride 0.9%, 10 mL/hr, Last Rate: 10 mL/hr (06/09/22 07) sodium chloride 0.9%, 10 mL/hr sodium chloride 0.9%, 10 mL/hr, Last Rate: 10 mL/hr (06/09/22 07) sodium chloride 0.9%, 6 mL/hr, Last Rate: 6 mL/hr (06/10/22 170) sodium chloride 0.9%, 1,000 mL sodium chloride 0.9%, 3-12 mL/hr sodium chloride 0.9%, 3-12 mL/hr sodium chloride 0.9%, 3-12 mL/hr, Last Rate: 3 mL/hr (06/11/22 09) vasopressin, 0-0.06 Units/min, Last Rate: 0.02 Units/min (06/11/22 0900) PRN Meds:. acetaminophen albuterol HFA bisacodyL bisacodyl EC dextrose OR dextrose dextrose 5% water dextrose 5% water fentaNYL fentaNYL fluticasone propionate glucagon Dialysis Access Care AND heparin lidocaine ondansetron ODT OR ondansetron phenoL polyethylene glycol ramelteon sodium chloride 0.9% I/O last 2 completed shifts: In: 2429 [I.V.:1334; NG/GT:470; IV Piggyback:625] Out: 4385 [Urine:80; Emesis/NG output:25; Other:4280] Objective Vitals: Vitals: 06/11/22 0900 BP: Pulse: 58 Resp: 20 Temp: SpO2: 93% Physical Exam: Gen: intubated and sedated HEENT: ETT in place, NGT in place Pulm: synchronous with ventilator, coarse breath sounds bilaterally CV: impella device Abd: soft and non-tender Ext: 2+ edema Skin: no rashes Neuro: sedated. Moved all extremities spontaneously Data: I have reviewed labs from last 24 hours. Pertinent findings include: ABG as above Recent Results (from the past 24 hour(s)) Blood gas, arterial Collection Time: 06/10/22 1:12 PM Result Value Ref Range pH, Art 7.40 7.35 - 7.45 PCO2, Arterial 36 35 - 45 mmHg PO2, Arterial 67 (L) 83 - 108 mmHg HCO3 Art (Calculated) 23 20 - 30 mmol/L BE, art -2 mmol/L O2 Sat Art (Measured) 92 90 - 95 % Lactate, whole blood Collection Time: 06/10/22 1:12 PM Result Value Ref Range Lactate, bld 1.1 0.7 - 2.0 mmol/L POCT glucose Collection Time: 06/10/22 1:13 PM Result Value Ref Range Glucose, POC 189 70 - 199 mg/dL Blood gas, arterial Collection Time: 06/10/22 2:24 PM Result Value Ref Range pH, Art 7.38 7.35 - 7.45 PCO2, Arterial 39 35 - 45 mmHg PO2, Arterial 66 (L) 83 - 108 mmHg HCO3 Art (Calculated) 24 20 - 30 mmol/L BE, art -2 mmol/L O2 Sat Art (Measured) 91 90 - 95 % Triglycerides Collection Time: 06/10/22 5:13 PM Result Value Ref Range Triglycerides 401 (H) <=149 mg/dL POCT glucose Collection Time: 06/10/22 5:13 PM Result Value Ref Range Glucose, POC 106 70 - 199 mg/dL CBC with auto differential Collection Time: 06/10/22 10:27 PM Result Value Ref Range WBC 17.2 (H) 3.8 - 9.9 K/cumm Hgb 9.0 (L) 13.0 - 17.5 g/dL Hct 27.0 (L) 38.9 - 50.3 % Plt 274 150 - 400 K/cumm MPV 10.7 9.1 - 12.3 fL RBC 2.88 (L) 4.30 - 5.80 M/cumm MCV 93.8 81.3 - 96.4 fL MCH 31.3 27.1 - 33.3 pg MCHC 33.3 32.3 - 35.7 g/dL RDW CV 13.5 11.1 - 14.9 % RDW SD 46.1 35.7 - 48.1 fL NRBC abs 0.08 (H) 0.00 - 0.01 K/cumm Lipase Collection Time: 06/10/22 10:27 PM Result Value Ref Range Lipase 26 10 - 99 Units/L Beta-hydroxybutyrate Collection Time: 06/10/22 10:27 PM Result Value Ref Range Beta-Hydroxybutyrate 1.1 (H) 0.0 - 0.5 mmol/L Phosphorus Collection Time: 06/10/22 10:27 PM Result Value Ref Range Phosphorus, pl 3.6 2.3 - 4.5 mg/dL Blood gas, arterial Collection Time: 06/10/22 10:27 PM Result Value Ref Range pH, Art 7.39 7.35 - 7.45 PCO2, Arterial 37 35 - 45 mmHg PO2, Arterial 98 83 - 108 mmHg HCO3 Art (Calculated) 23 20 - 30 mmol/L BE, art -2 mmol/L O2 Sat Art (Measured) 97 (H) 90 - 95 % Lactate, whole blood Collection Time: 06/10/22 10:27 PM Result Value Ref Range Lactate, bld 1.1 0.7 - 2.0 mmol/L Magnesium Collection Time: 06/10/22 10:27 PM Result Value Ref Range Magnesium 2.5 1.4 - 2.5 mg/dL Comprehensive metabolic panel Collection Time: 06/10/22 10:27 PM Result Value Ref Range Sodium 136 135 - 145 mmol/L Potassium, pl 4.9 3.3 - 4.9 mmol/L Chloride 99 97 - 110 mmol/L CO2 25 22 - 32 mmol/L Anion gap 12 2 - 15 mmol/L BUN 20 8 - 25 mg/dL Creatinine 2.33 (H) 0.80 - 1.30 mg/dL Glucose 158 70 - 199 mg/dL Calcium 8.6 8.5 - 10.3 mg/dL Bilirubin, total 1.0 0.1 - 1.2 mg/dL Protein, pl 6.2 (L) 6.5 - 8.5 g/dL Albumin 3.1 (L) 3.5 - 5.0 g/dL Alk phos 216 (H) 40 - 130 Units/L ALT 49 7 - 55 Units/L AST 114 (H) 10 - 50 Units/L Manual Differential Collection Time: 06/10/22 10:27 PM Result Value Ref Range Differential Manual Cells Counted 118 Neutrophil abs 13.0 (H) 1.7 - 6.5 K/cumm Imm gran abs 0.6 (H) 0.0 - 0.1 K/cumm Lymphocyte abs 1.3 0.8 - 3.3 K/cumm Monocyte abs 1.5 (H) 0.2 - 0.8 K/cumm Eosinophil abs 0.7 (H) 0.0 - 0.5 K/cumm Basophil abs 0.1 0.0 - 0.1 K/cumm Neutrophil pct 75.6 % Lymphocyte pct 7.6 % Monocyte pct 8.5 % Eosinophil pct 4.2 % Basophil pct 0.8 % Neutrophilic metamyelocytes 1.7 % Myelocytes 0.8 % Promyelocyte 0.8 % eGFR Collection Time: 06/10/22 10:27 PM Result Value Ref Range eGFR 33 (L) 90 - 130 mL/min/1.73 m2 POCT glucose Collection Time: 06/10/22 10:28 PM Result Value Ref Range Glucose, POC 163 70 - 199 mg/dL POCT glucose Collection Time: 06/11/22 12:49 AM Result Value Ref Range Glucose, POC 165 70 - 199 mg/dL POCT glucose Collection Time: 06/11/22 3:28 AM Result Value Ref Range Glucose, POC 155 70 - 199 mg/dL Lactate, whole blood Collection Time: 06/11/22 3:31 AM Result Value Ref Range Lactate, bld 1.1 0.7 - 2.0 mmol/L Blood gas, arterial Collection Time: 06/11/22 3:31 AM Result Value Ref Range pH, Art 7.42 7.35 - 7.45 PCO2, Arterial 36 35 - 45 mmHg PO2, Arterial 115 (H) 83 - 108 mmHg HCO3 Art (Calculated) 24 20 - 30 mmol/L BE, art -1 mmol/L O2 Sat Art (Measured) 98 (H) 90 - 95 % Blood gas, arterial Collection Time: 06/11/22 6:34 AM Result Value Ref Range pH, Art 7.43 7.35 - 7.45 PCO2, Arterial 34 (L) 35 - 45 mmHg PO2, Arterial 87 83 - 108 mmHg HCO3 Art (Calculated) 24 20 - 30 mmol/L BE, art -1 mmol/L O2 Sat Art (Measured) 97 (H) 90 - 95 % POCT glucose Collection Time: 06/11/22 8:46 AM Result Value Ref Range Glucose, POC 169 70 - 199 mg/dL CBC with auto differential Collection Time: 06/11/22 8:48 AM Result Value Ref Range WBC 10.4 (H) 3.8 - 9.9 K/cumm Hgb 7.8 (L) 13.0 - 17.5 g/dL Hct 23.4 (L) 38.9 - 50.3 % Plt 191 150 - 400 K/cumm MPV 10.7 9.1 - 12.3 fL RBC 2.49 (L) 4.30 - 5.80 M/cumm MCV 94.0 81.3 - 96.4 fL MCH 31.3 27.1 - 33.3 pg MCHC 33.3 32.3 - 35.7 g/dL RDW CV 13.2 11.1 - 14.9 % RDW SD 45.3 35.7 - 48.1 fL NRBC abs 0.03 (H) 0.00 - 0.01 K/cumm Lactate, whole blood Collection Time: 06/11/22 8:48 AM Result Value Ref Range Lactate, bld 1.1 0.7 - 2.0 mmol/L I have reviewed radiology images from last 24 hours: Pertinent findings include: assymetric pulmonary edema with small L pleural effusion Acute hypoxemic respiratory failure (HCC) Assessment & Plan Mr. Garvin is a 51 year old man history of CAD, DM1, ESRD on PD, presented for complex PCI, foundto have cholecystitis, now in CCU with cardiogenic shock; pulmonary is consulted for hypoxemic respiratory failure. Primary team is concerned that his degree of hypoxemic respiratory failure is not fully explained by the volume overload, in light of his swan numbers and is wondering if there is component of non-cardiogenic edema. Overall the clinical picture and imaging is consistent with cardiogenic pulmonary edema, and his hypoxemia is improving with aggressive volume removal and treatment of his cardiogenic shock. There certainly could be a component of non-cardiogenic pulmonary edema (ie acute lung injury) caused by infection, aspiration or other process. Regardless, lung protective ventilation would be the managementand he is getting appropriate ventilation and his pressures on the vent are at goal (plat 25). No evidence of intracardiac shunting or other reason for profound hypoxemia. Epo now off Elevated WBC noted. CXR looks unchanged from yesterday and vent settings slightly improved making VAP less likely, though reasonable to send trach aspirate and add MRSA coverage. Recommendations: -continue aggressive volume removal -agree with addition of MRSA coverage. Would obtain tracheal aspirate -continue lung protective ventilation keeping plat pressures < 30 - decrease FiO2 as tolerated -if desat on the monitor obtain an ABG at the same time, the pulse ox seems to be reading a few % lower than synchronous blood gas Pulmonary consults will continue to follow. Please contact the consult fellow with any questions. Cosigned by Stacia Beard MD at 06/11/2022 10:52 AM CDT Associated attestation - Stacia Beard MD - 06/11/2022 10:52 AM CDT I have seen and examined the patient on 06/11/22. I agree with the findings and plan of care as documented in the resident's/fellow's note.. * Plan of Care - WaBambi bauer RN - 06/11/2022 5:36 AM CDT Problem: Safety: Goal: Will remain free from falls Outcome: Progressing Goal: Will remain free from injury from falls Outcome: Progressing Problem: Coping: Goal: Level of anxiety will decrease Outcome: Not Progressing Problem: Sensory: Goal: Pain level will decrease Outcome: Not Progressing Goals: Clinical Goals for the Shift: monitor hemodynamics; vent management; CRRT management; labs Summary: Pt dropped pressures around 1999. Vaso and levo added. Levo weaned off. Versed added and precedex turned off d/t bradycardia. Patient still having issues with being sedated and breaking through. Pt popped WBC, blood cultures drawn and sent. UOP decreased and UA unable to be sent. AM shift will be notified. Will continue with plan of care and update as needed. * Consults, Subsequent - Vonnie Cody MD - 06/10/2022 2:53 PM CDT Nephrology SLED/CRRT Procedure Note Date of Service: 06/10/2022 Stable overnight. Likely removal of Impella today. Still significant volume overloaded - continue CRRT today and reassess tomorrow AM and consider SLED tomorrow. I saw and evaluated the patient during CRRT. 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 Off pressors as of this morning. Tolerating CVVHDF with fluid removal rate of 200 ml/hour. Treatment Type: Continuous veno-venous hemodiafiltration Machine Type: Prismaflex Filter Type: M150 Dialysate Fluid: NxStage 4Potassium/2.5Calcium Pre-Pump Replacement Fluid: NxStage 4Potassium/2.5Calcium Flow Rates Blood Flow Rate (mL/min): 280 mL/min Dialysate Flow Rate (mL/hr): 1400 mL/hr Pre-Pump Replacement Rate (mL/hr): 1400 mL/hr Patient Fluid Removal Set Rate (mL/hr): 200 mL/hr Pressures Access Pressure (mmHg): -76 mmHg Filter Pressure (mmHg): 154 mmHg Effluent Pressure (mmHg): 58 mmHg Return Pressure (mmHg): 110 mmHg Trans-Membrane Pressure (mmHg): 65 mmHg Delta P (mmHg): 18 mmHg Off Reason: Off unit 24hr Min/Max: Temp Min: 36.6 ??C (97.9 ??F) Max: 36.6 ??C (97.9 ??F) Pulse Min: 49 Max: 87 BP Min: 146/57 Max: 146/57 Resp Min: 18 Max: 20 SpO2 Min: 88 % Max: 97 % Most Recent: BP 146/57 (Patient Position: Lying) Comment (BP Location): A line Pulse 76 Temp 36.6 ??C (97.9 ??F) (Axillary) Resp 20 Ht 177.8 cm (5' 10 ) Wt 135.8 kg (299 lb 6.2 oz) SpO2 (!) 88% BMI 42.96 kg/m?? I/O last 2 completed shifts: In: 2721 [P.O.:120; I.V.:2361; NG/GT:240] Out: 6430 [Urine:590; Other:5840] I/O this shift: In: 707.3 [I.V.:587.3; NG/GT:120] Out: 925 [Urine:20; Emesis/NG output:25; Other:880] Medications, laboratory findings, and imaging studies reviewed. Medications: [Held by Provider] amLODIPine, 10 mg, oral, Daily aspirin, 81 mg, feeding tube, Daily atorvastatin, 80 mg, feeding tube, Daily calcitRIOL, 0.25 mcg, feeding tube, Daily [Held by Provider] calcium acetate(phosphat bind), 667 mg, oral, QID chlorhexidine, 15 mL, mouth/throat, BID [Held by Provider] cloNIDine, 0.1 mg, oral, BID clopidogreL, 75 mg, feeding tube, Daily docusate, 100 mg, feeding tube, Daily [Held by Provider] ergocalciferol, 50,000 Units, oral, Weekly ezetimibe, 10 mg, feeding tube, Daily [Held by Provider] hydrALAZINE, 100 mg, oral, Q8H insulin glargine, 33 Units, subcutaneous, QAM insulin lispro, 0-10 Units, subcutaneous, Q4H ASHLEY [Held by Provider] isosorbide mononitrate ER, 30 mg, oral, Daily meropenem, 1,000 mg, intravenous, Q12H ASHLEY [Held by Provider] metoprolol tartrate, 12.5 mg, oral, Q6H [Held by Provider] nystatin, 500,000 Units, swish & spit, QID pantoprazole, 40 mg, intravenous, BID polyethylene glycol, 17 g, feeding tube, BID [Held by Provider] ranolazine ER, 500 mg, oral, BID senna, 1 tablet, feeding tube, Daily [Held by Provider] terazosin, 2 mg, oral, Nightly dextrose 10%, 10 mL/hr, Last Rate: 10 mL/hr (06/10/22 1000) fentaNYL, 0-400 mcg/hr, Last Rate: 200 mcg/hr (06/10/22 1400) impella purge solution infusion, 0-30 mL/hr, Last Rate: 15.4 mL/hr (06/10/22 1000) heparin, 0-33 Units/kg/hr, Last Rate: Stopped (06/10/22 1034) nitroglycerin, 0-400 mcg/min, Last Rate: Stopped (06/05/22 2100) norepinephrine, 0-2 mcg/kg/min (Dosing Weight), Last Rate: Stopped (06/08/22 0745) NxStage 4-potassium/2.5-calcium, 1,400 mL/hr, Last Rate: 1,400 mL/hr (06/10/22 0905) NxStage 4-potassium/2.5-calcium, 1,400 mL/hr, Last Rate: 1,400 mL/hr (06/10/22 0905) propofol, 0-50 mcg/kg/min, Last Rate: 50 mcg/kg/min (06/10/22 1400) sodium chloride 0.9%, 10 mL/hr, Last Rate: 10 mL/hr (06/10/22 1000) sodium chloride 0.9%, 10 mL/hr, Last Rate: 10 mL/hr (06/09/22 0700) sodium chloride 0.9%, 10 mL/hr sodium chloride 0.9%, 10 mL/hr, Last Rate: 10 mL/hr (06/09/22 0700) sodium chloride 0.9%, 6 mL/hr, Last Rate: 6 mL/hr (06/10/22 1000) sodium chloride 0.9%, 1,000 mL sodium chloride 0.9%, 3-12 mL/hr sodium chloride 0.9%, 3-12 mL/hr sodium chloride 0.9%, 3-12 mL/hr, Last Rate: 3 mL/hr (06/10/22 1000) Recent Labs Lab Units 06/10/22 07506/09/22203206/09/22 0757 WBC K/cumm 10.2* 9.1 8.6 HEMOGLOBIN g/dL 8.3* 8.2* 8.1* PLATELETS K/cumm 201 208 179 Recent Labs Lab Units 06/10/2275106/09/22203206/09/22 0757 06/08/22200706/08/22 0028 06/07/22 2258 SODIUM mmol/L 135 134* 134* 136 < > 134* POTASSIUM PLASMA mmol/L 4.3 4.4 4.5 4.3 < > 3.4 CHLORIDE mmol/L 100 99 99 100 < > 95* CO2 mmol/L 26 25 28 27 < > 23 BUN SERUM mg/dL 20 24 32* 42* < > 75* CREATININE mg/dL 2.44* 2.82* 3.50* 4.73* < > 8.92* CALCIUM mg/dL 8.4* 8.3* 8.4* 8.4* < > 8.1* MAGNESIUM mg/dL 2.4 2.4 2.3 2.4 < > 2.2 PHOSPHORUS PLASMA mg/dL -- 3.2 -- 3.7 -- 4.7* < > = values in this interval not displayed. Vonnie Cody MD publishing systems analyst Division of Nephology Consult 1: After 4 PM on , after 12 PM on Monday, and all day Monday, please contact on-call renal fellow at with questions. * Consults, Subsequent - Kellee Magallanes MD - 06/10/2022 1:00 PM CDT Endocrinology & Diabetes Progress Note Patient: Adelia Garvin Jr., 51 y.o. male (: 1970) Room: [place] [address] ( ) LOS: 6 Adelia Garvin Jr. is a 51 y.o. male with PMHx CHF (EF 50% in 2017), atrial fibrillation not on OAC, HTN/HLD, CAD s/p PCI, ESRD on PD, hyperparathyroidism presenting with weakness, N/V, diarrhea and chest pain. He is scheduled for C on 06/06. Diabetes service consulted for T1DM on insulin pump. Interval Events & Subjective He is still sedated intubated He is currently on D10% 20 ml/hr Minimal requirements on ISS BS readings are controlled Diet: NPO Diet Recent Labs Lab Units 06/10/22 0754 06/10/22 0752 06/10/22 0342 06/10/22 0021 06/09/22 2040 06/09/22 2033 06/09/22 1550 06/09/22 1158 06/09/22 0757 06/09/22 0755 GLUCOSE mg/dL -- 138 -- -- -- 173 -- -- 171 -- POC GLUCOSE MONITOR mg/dL 138 -- 150 157 182 -- 136 171 -- 155 Interval Review of Systems Twelve point ROS reviewed and negative except as noted in HPI. All other systems negative. Vitals & Exam Temp: [36.6 ??C (97.9 ??F)] 36.6 ??C (97.9 ??F) Pulse: [49-87] 87 BP: (146)/(57) 146/57 Resp: [20] 20 SpO2: [89 %-97 %] 96 % Arterial Line BP: (102-147)/(39-51) 126/51 FiO2 (%): [70 %-100 %] 70 % I/O this shift: In: 533.5 [I.V.:413.5; NG/GT:120] Out: 915 [Urine:10; Emesis/NG output:25; Other:880] Physical Exam Gen : sedated, intubated, doesn't follow commands Eyes : conjunctiva clear, anicteric Pulm : intubated , bilateral crackles Extr : Bilateral pitting edema Skin : turgor normal, no rashes/wounds/lesions Neuro : sedated, doesn't follow commands Data Medications, labs, imaging, and diagnostics independently reviewed in Epic and commented on below. Lab Results Component Value Date TSH 0.80 03/21/2017 Lab Results Component Value Date CHOL 149 06/04/2022 TRIG 172 (H) 06/07/2022 HDL 34 (L) 06/04/2022 LDLCALC 82 06/04/2022 Lab Results Component Value Date 25HYDROVITD 22.7 (L) 03/22/2017 Lab Results Component Value Date HGBA1C 7.8 (H) 06/04/2022 Assessment & Plan 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, with prison use of insulin, complicated by ESRD on PD, CAD s/p PCI, CHF - HbA1c 7.4% - Uses Omnipod and Dexcom G6 at home, not currently on this- doesn't have the supplies -On significantly higher basal rates on pump at night due to peritoneal dialysis -home settings: Basal rate 0330 >>1.7 0800 >> 0.8 2000 >> 5.8 ICR1:6.5 ISF1:25 [id number] TIA 4 Recommendations: - Lantus 33 units qAM - continue on D10% 20 ml/hr as a source of calories until TF is started to prevent him from going to ketosis, please notify the diabetes team if TF got started - Resistant correctional Humalog q4 hrs - POC glucoses q4hrs Discharge recommendations: Start Omnipod insulin pump at pre-hospital settings #Acute hypoxic respiratory failure #ESRD on PD at home - on CRRT ## Discharge Planning - Follow-up with home green house manager -- Kellee Magallanes MD Endocrinology, Metabolism, & Lipid Research Contact Info: New Consults: [phone]) General Endocrine (Non-Diabetes): [phone] (Check 'Treatment Team' assignment for Diabetes 1 vs 2 vs 3) Diabetes 1: Diabetes Fellow: [phone] Diabetes 2: Dora Delarosa, CHIEF AIRLINE RADIO OPERATOR: [phone] Diabetes 3: See Treatment Team Provider (or call Dora Delarosa, above) Diabetes After-Hours & Weekends: Diabetes Fellow Cosigned by Bryce Langley MD at 06/10/2022 1:17 PM CDT Associated attestation - Bryce Langley MD - 06/10/2022 1:17 PM CDT I have seen and examined the patient on 06/10/22. I agree with the findings and plan of care as documented in the resident's/fellow's note.. and I spent a total of 20 minutes of which more than 50% of the time was spent in counseling and coordination of care. This time included review of the patient's chart, glucose flowsheet, recent laboratory data and bedside discussion with the patient. Bryce Langley MD, [facility] Biology Department Chairpublishing systems analyst Division of Endocrinology, Metabolism & Lipid Research * Consults, Subsequent - Patricio Pearce MD - 06/10/2022 11:27 AM CDT Pulmonary Daily Progress Subjective Chief complaint of hypoxemic resp failure. Interval History: Remains on same vent settings; trying to wean epoprostenol. Significant fluid removal with CVVHDF. Seems to be a discorrelate with pulse ox reading several % lower than should be based on ABGs Plat [address] 11 this AM Most recent gas 7. Scheduled Meds:[Held by Provider] amLODIPine, 10 mg, oral, Daily [OCT Hold] aspirin, 81 mg, feeding tube, Daily [OCT Hold] atorvastatin, 80 mg, feeding tube, Daily [MAR Hold] calcitRIOL, 0.25 mcg, feeding tube, Daily [Held by Provider] calcium acetate(phosphat bind), 667 mg, oral, QID [MAR Hold] chlorhexidine, 15 mL, mouth/throat, BID [Held by Provider] cloNIDine, 0.1 mg, oral, BID [MAR Hold] clopidogreL, 75 mg, feeding tube, Daily [OCT Hold] docusate, 100 mg, feeding tube, Daily [Held by Provider] ergocalciferol, 50,000 Units, oral, Weekly [MAR Hold] ezetimibe, 10 mg, feeding tube, Daily [Held by Provider] hydrALAZINE, 100 mg, oral, Q8H [OCT Hold] insulin glargine, 33 Units, subcutaneous, QAM [MAR Hold] insulin lispro, 0-10 Units, subcutaneous, Q4H ASHLEY [Held by Provider] isosorbide mononitrate ER, 30 mg, oral, Daily [OCT Hold] meropenem, 1,000 mg, intravenous, Q12H ASHLEY [Held by Provider] metoprolol tartrate, 12.5 mg, oral, Q6H [Held by Provider] nystatin, 500,000 Units, swish & spit, QID [OCT Hold] pantoprazole, 40 mg, intravenous, BID [OCT Hold] polyethylene glycol, 17 g, feeding tube, BID [Held by Provider] ranolazine ER, 500 mg, oral, BID [OCT Hold] senna, 1 tablet, feeding tube, Daily [Held by Provider] terazosin, 2 mg, oral, Nightly Continuous Infusions:dextrose 10%, 10 mL/hr, Last Rate: 10 mL/hr (06/10/22 1000) [Held by Provider] epoprostenol, 40 mcg/hr, Last Rate: Stopped (06/10/22 0956) fentaNYL, 0-400 mcg/hr, Last Rate: 200 mcg/hr (06/10/22 1000) impella purge solution infusion, 0-30 mL/hr, Last Rate: 15.4 mL/hr (06/10/22 1000) heparin, 0-33 Units/kg/hr, Last Rate: Stopped (06/10/22 1034) nitroglycerin, 0-400 mcg/min, Last Rate: Stopped (06/05/22 2100) norepinephrine, 0-2 mcg/kg/min (Dosing Weight), Last Rate: Stopped (06/08/22 0745) NxStage 4-potassium/2.5-calcium, 1,400 mL/hr, Last Rate: 1,400 mL/hr (06/10/22 0905) NxStage 4-potassium/2.5-calcium, 1,400 mL/hr, Last Rate: 1,400 mL/hr (06/10/22 0905) propofol, 0-50 mcg/kg/min, Last Rate: 50 mcg/kg/min (06/10/22 1006) sodium chloride 0.9%, 10 mL/hr, Last Rate: 10 mL/hr (06/10/22 1000) sodium chloride 0.9%, 10 mL/hr, Last Rate: 10 mL/hr (06/09/22 0700) sodium chloride 0.9%, 10 mL/hr sodium chloride 0.9%, 10 mL/hr, Last Rate: 10 mL/hr (06/09/22 0700) sodium chloride 0.9%, 6 mL/hr, Last Rate: 6 mL/hr (06/10/22 1000) [OCT Hold] sodium chloride 0.9%, 1,000 mL sodium chloride 0.9%, 3-12 mL/hr sodium chloride 0.9%, 3-12 mL/hr sodium chloride 0.9%, 3-12 mL/hr, Last Rate: 3 mL/hr (06/10/22 1000) PRN Meds:. [Oct] acetaminophen [Oct] albuterol HFA [Oct] bisacodyL [Oct] bisacodyl EC [Oct] dextrose OR [Oct] dextrose [Oct] dextrose 5% water [Oct] dextrose 5% water [Oct] fentaNYL [Oct] fentaNYL [Oct] fluticasone propionate [Oct] glucagon Dialysis Access Care AND [Oct] heparin [Oct] heparin OR [Oct] heparin [Oct] lidocaine [Oct] ondansetron ODT OR [Oct] ondansetron [Oct] phenoL [Oct] polyethylene glycol [Oct] ramelteon [Oct] sodium chloride 0.9% I/O last 2 completed shifts: In: 2721 [P.O.:120; I.V.:2361; NG/GT:240] Out: 6430 [Urine:590; Other:5840] Objective Vitals: Vitals: 06/10/22 1034 BP: Pulse: 52 Resp: 20 Temp: SpO2: 92% Physical Exam: Gen: intubated and sedated HEENT: ETT in place, NGT in place Pulm: synchronous with ventilator, coarse breath sounds bilaterally CV: impella device Abd: soft and non-tender Ext: 2+ edema Skin: no rashes Neuro: sedated. Moved all extremities spontaneously Data: I have reviewed labs from last 24 hours. Pertinent findings include: ABG as above Recent Results (from the past 24 hour(s)) POCT glucose Collection Time: 06/09/22 11:58 AM Result Value Ref Range Glucose, POC 171 70 - 199 mg/dL aPTT Collection Time: 06/09/22 11:59 AM Result Value Ref Range aPTT 79 (H) 27 - 37 sec Oxyhemoglobin, pulmonary artery Collection Time: 06/09/22 11:59 AM Result Value Ref Range Oxyhemoglobin, PA 65.2 % Hemoglobin total, pulmonary artery Collection Time: 06/09/22 11:59 AM Result Value Ref Range Hemoglobin total, PA 10.2 (L) 13.0 - 17.5 g/dL Lactate, whole blood Collection Time: 06/09/22 11:59 AM Result Value Ref Range Lactate, bld 1.3 0.7 - 2.0 mmol/L POCT glucose Collection Time: 06/09/22 3:50 PM Result Value Ref Range Glucose, POC 136 70 - 199 mg/dL Blood gas, arterial Collection Time: 06/09/22 3:52 PM Result Value Ref Range pH, Art 7.38 7.35 - 7.45 PCO2, Arterial 45 35 - 45 mmHg PO2, Arterial 80 (L) 83 - 108 mmHg HCO3 Art (Calculated) 27 20 - 30 mmol/L BE, art 1 mmol/L O2 Sat Art (Measured) 94 90 - 95 % Hemoglobin total, pulmonary artery Collection Time: 06/09/22 3:52 PM Result Value Ref Range Hemoglobin total, PA 8.9 (L) 13.0 - 17.5 g/dL Lactate, whole blood Collection Time: 06/09/22 3:52 PM Result Value Ref Range Lactate, bld 1.4 0.7 - 2.0 mmol/L Oxyhemoglobin, pulmonary artery Collection Time: 06/09/22 3:52 PM Result Value Ref Range Oxyhemoglobin, PA 66.5 % CBC with auto differential Collection Time: 06/09/22 8:33 PM Result Value Ref Range WBC 9.1 3.8 - 9.9 K/cumm Hgb 8.2 (L) 13.0 - 17.5 g/dL Hct 24.8 (L) 38.9 - 50.3 % Plt 208 150 - 400 K/cumm MPV 11.0 9.1 - 12.3 fL RBC 2.66 (L) 4.30 - 5.80 M/cumm MCV 93.2 81.3 - 96.4 fL MCH 30.8 27.1 - 33.3 pg MCHC 33.1 32.3 - 35.7 g/dL RDW CV 13.2 11.1 - 14.9 % RDW SD 45.5 35.7 - 48.1 fL NRBC abs 0.00 0.00 - 0.01 K/cumm Comprehensive metabolic panel Collection Time: 06/09/22 8:33 PM Result Value Ref Range Sodium 134 (L) 135 - 145 mmol/L Potassium, pl 4.4 3.3 - 4.9 mmol/L Chloride 99 97 - 110 mmol/L CO2 25 22 - 32 mmol/L Anion gap 10 2 - 15 mmol/L BUN 24 8 - 25 mg/dL Creatinine 2.82 (H) 0.80 - 1.30 mg/dL Glucose 173 70 - 199 mg/dL Calcium 8.3 (L) 8.5 - 10.3 mg/dL Bilirubin, total 0.8 0.1 - 1.2 mg/dL Protein, pl 6.1 (L) 6.5 - 8.5 g/dL Albumin 2.8 (L) 3.5 - 5.0 g/dL Alk phos 168 (H) 40 - 130 Units/L ALT 45 7 - 55 Units/L AST 129 (H) 10 - 50 Units/L Magnesium Collection Time: 06/09/22 8:33 PM Result Value Ref Range Magnesium 2.4 1.4 - 2.5 mg/dL Lactate dehydrogenase (LD) Collection Time: 06/09/22 8:33 PM Result Value Ref Range Lactate dehydrogenase (LDH) 528 (H) 100 - 250 Units/L Lipase Collection Time: 06/09/22 8:33 PM Result Value Ref Range Lipase 21 10 - 99 Units/L Haptoglobin Collection Time: 06/09/22 8:33 PM Result Value Ref Range Haptoglobin 153.0 30.0 - 200.0 mg/dL Beta-hydroxybutyrate Collection Time: 06/09/22 8:33 PM Result Value Ref Range Beta-Hydroxybutyrate 0.3 0.0 - 0.5 mmol/L Phosphorus Collection Time: 06/09/22 8:33 PM Result Value Ref Range Phosphorus, pl 3.2 2.3 - 4.5 mg/dL aPTT Collection Time: 06/09/22 8:33 PM Result Value Ref Range aPTT 92 (H) 27 - 37 sec Blood gas, arterial Collection Time: 06/09/22 8:33 PM Result Value Ref Range pH, Art 7.41 7.35 - 7.45 PCO2, Arterial 39 35 - 45 mmHg PO2, Arterial 92 83 - 108 mmHg HCO3 Art (Calculated) 25 20 - 30 mmol/L BE, art 0 mmol/L O2 Sat Art (Measured) 96 (H) 90 - 95 % Differential, auto Collection Time: 06/09/22 8:33 PM Result Value Ref Range Neutrophil abs 5.8 1.7 - 6.5 K/cumm Imm gran abs 0.7 (H) 0.0 - 0.1 K/cumm Lymphocyte abs 1.2 0.8 - 3.3 K/cumm Monocyte abs 1.0 (H) 0.2 - 0.8 K/cumm Eosinophil abs 0.3 0.0 - 0.5 K/cumm Basophil abs 0.0 0.0 - 0.1 K/cumm Neutrophil pct 64.3 % Imm gran pct 7.7 % Lymphocyte pct 13.4 % Monocyte pct 11.5 % Eosinophil pct 2.8 % Basophil pct 0.3 % eGFR Collection Time: 06/09/22 8:33 PM Result Value Ref Range eGFR 26 (L) 90 - 130 mL/min/1.73 m2 POCT glucose Collection Time: 06/09/22 8:40 PM Result Value Ref Range Glucose, POC 182 70 - 199 mg/dL Blood gas, arterial Collection Time: 06/09/22 10:28 PM Result Value Ref Range pH, Art 7.43 7.35 - 7.45 PCO2, Arterial 38 35 - 45 mmHg PO2, Arterial 93 83 - 108 mmHg HCO3 Art (Calculated) 26 20 - 30 mmol/L BE, art 1 mmol/L O2 Sat Art (Measured) 97 (H) 90 - 95 % POCT glucose Collection Time: 06/10/22 12:21 AM Result Value Ref Range Glucose, POC 157 70 - 199 mg/dL Blood gas, arterial Collection Time: 06/10/22 12:26 AM Result Value Ref Range pH, Art 7.45 7.35 - 7.45 PCO2, Arterial 36 35 - 45 mmHg PO2, Arterial 102 83 - 108 mmHg HCO3 Art (Calculated) 26 20 - 30 mmol/L BE, art 2 mmol/L O2 Sat Art (Measured) 96 (H) 90 - 95 % Lactate, whole blood Collection Time: 06/10/22 12:26 AM Result Value Ref Range Lactate, bld 1.4 0.7 - 2.0 mmol/L POCT glucose Collection Time: 06/10/22 3:42 AM Result Value Ref Range Glucose, POC 150 70 - 199 mg/dL Blood gas, arterial Collection Time: 06/10/22 3:45 AM Result Value Ref Range pH, Art 7.45 7.35 - 7.45 PCO2, Arterial 36 35 - 45 mmHg PO2, Arterial 92 83 - 108 mmHg HCO3 Art (Calculated) 26 20 - 30 mmol/L BE, art 1 mmol/L O2 Sat Art (Measured) 97 (H) 90 - 95 % Lactate, whole blood Collection Time: 06/10/22 5:36 AM Result Value Ref Range Lactate, bld 1.4 0.7 - 2.0 mmol/L Oxyhemoglobin, central venous Collection Time: 06/10/22 5:36 AM Result Value Ref Range Oxyhemoglobin, CV 70.2 % CBC with auto differential Collection Time: 06/10/22 7:52 AM Result Value Ref Range WBC 10.2 (H) 3.8 - 9.9 K/cumm Hgb 8.3 (L) 13.0 - 17.5 g/dL Hct 25.1 (L) 38.9 - 50.3 % Plt 201 150 - 400 K/cumm MPV 10.9 9.1 - 12.3 fL RBC 2.70 (L) 4.30 - 5.80 M/cumm MCV 93.0 81.3 - 96.4 fL MCH 30.7 27.1 - 33.3 pg MCHC 33.1 32.3 - 35.7 g/dL RDW CV 13.3 11.1 - 14.9 % RDW SD 45.1 35.7 - 48.1 fL NRBC abs 0.02 (H) 0.00 - 0.01 K/cumm Comprehensive metabolic panel Collection Time: 06/10/22 7:52 AM Result Value Ref Range Sodium 135 135 - 145 mmol/L Potassium, pl 4.3 3.3 - 4.9 mmol/L Chloride 100 97 - 110 mmol/L CO2 26 22 - 32 mmol/L Anion gap 9 2 - 15 mmol/L BUN 20 8 - 25 mg/dL Creatinine 2.44 (H) 0.80 - 1.30 mg/dL Glucose 138 70 - 199 mg/dL Calcium 8.4 (L) 8.5 - 10.3 mg/dL Bilirubin, total 0.8 0.1 - 1.2 mg/dL Protein, pl 6.2 (L) 6.5 - 8.5 g/dL Albumin 3.0 (L) 3.5 - 5.0 g/dL Alk phos 169 (H) 40 - 130 Units/L ALT 45 7 - 55 Units/L AST 117 (H) 10 - 50 Units/L Magnesium Collection Time: 06/10/22 7:52 AM Result Value Ref Range Magnesium 2.4 1.4 - 2.5 mg/dL Blood gas, arterial Collection Time: 06/10/22 7:52 AM Result Value Ref Range pH, Art 7.46 (H) 7.35 - 7.45 PCO2, Arterial 34 (L) 35 - 45 mmHg PO2, Arterial 99 83 - 108 mmHg HCO3 Art (Calculated) 25 20 - 30 mmol/L BE, art 1 mmol/L O2 Sat Art (Measured) 98 (H) 90 - 95 % Lactate, whole blood Collection Time: 06/10/22 7:52 AM Result Value Ref Range Lactate, bld 1.2 0.7 - 2.0 mmol/L Differential, auto Collection Time: 06/10/22 7:52 AM Result Value Ref Range Neutrophil abs 6.7 (H) 1.7 - 6.5 K/cumm Imm gran abs 1.0 (H) 0.0 - 0.1 K/cumm Lymphocyte abs 1.4 0.8 - 3.3 K/cumm Monocyte abs 0.9 (H) 0.2 - 0.8 K/cumm Eosinophil abs 0.3 0.0 - 0.5 K/cumm Basophil abs 0.0 0.0 - 0.1 K/cumm Neutrophil pct 65.5 % Imm gran pct 9.4 % Lymphocyte pct 13.4 % Monocyte pct 8.8 % Eosinophil pct 2.6 % Basophil pct 0.3 % eGFR Collection Time: 06/10/22 7:52 AM Result Value Ref Range eGFR 31 (L) 90 - 130 mL/min/1.73 m2 POCT glucose Collection Time: 06/10/22 7:54 AM Result Value Ref Range Glucose, POC 138 70 - 199 mg/dL I have reviewed radiology images from last 24 hours: Pertinent findings include: assymetric pulmonary edema with small L pleural effusion Acute hypoxemic respiratory failure (HCC) Assessment & Plan Mr. Garvin is a 51 year old man history of CAD, DM1, ESRD on PD, presented for complex PCI, foundto have cholecystitis, now in CCU with cardiogenic shock; pulmonary is consulted for hypoxemic respiratory failure. Primary team is concerned that his degree of hypoxemic respiratory failure is not fully explained by the volume overload, in light of his swan numbers and is wondering if there is component of non-cardiogenic edema. Overall the clinical picture and imaging is consistent with cardiogenic pulmonary edema, and his hypoxemia is improving over the last 48h with aggressive volume removal and treatment of his cardiogenic shock. There certainly could be a component of non-cardiogenic pulmonary edema (ie acute lung injury) caused by infection, aspiration or other process. Regardless, lung protective ventilation wouldbe the management and he is getting appropriate ventilation and his pressures on the vent are at goal (plat 25, drive 13). No clear evidence of pneumonia; he is on meropenem for cholecystitis with nosigns of worsening sepsis (blood cultures negative) and WBC has normalized. No evidence of intracardiac shunting or other reason for profound hypoxemia. Next step would be to try to wean off epo; TTEshowed no significant RV dysfunction. Recommendations: -continue aggressive volume removal -continue lung protective ventilation keeping plat pressures < 30 -would try to wean off epoprostenol - decrease FiO2 as tolerated once epo has been d/c'ed -if desat on the monitor obtain an ABG at the same time, the pulse ox seems to be reading a few % lower than synchronous blood gas Pulmonary consults will continue to follow. Please contact the consult fellow with any questions. Cosigned by Girish Grant MD at 06/10/2022 12:14 PM CDT Associated attestation - Girish Grant MD - 06/10/2022 12:14 PM CDT I have seen and examined the patient on 06/10/22. I agree with the findings and plan of care as documented in the resident's/fellow's note. and as discussed with the resident/fellow.. * Pre-Sedation Documentation - Marcelina Pickard NP - 06/10/2022 10:33 AM CDT Sedation Plan ASA 3 - Severe systemic disease Risks, benefits, and alternatives discussed with patient. History of sedation/Anesthesia complications:No History of transfusion reaction: No Current Facility-Administered Medications Medication Dose Route Frequency Provider Last Rate Last Admin acetaminophen (TYLENOL) tablet 325 mg 325 mg oral Q4H PRN Dewey Parra MD albuterol HFA (PROVENTIL HFA,VENTOLIN HFA,PROAIR HFA) 90 mcg/actuation inhaler 2 puff 2 puff inhalation Q6H PRN (RT) Dewey Parra MD [Held by Provider] amLODIPine (NORVASC) tablet 10 mg 10 mg oral Daily Dewey Parra MD 10 mg at 06/07/22 0802 aspirin chewable tablet 81 mg 81 mg feeding tube Daily Tyra De La Torre MD 81 mg at 06/10/22 0847 atorvastatin (LIPITOR) tablet 80 mg 80 mg feeding tube Daily Tyra De La Torre MD 80 mg at 06/10/22 0847 bisacodyL (DULCOLAX) suppository 10 mg 10 mg rectal Daily PRN Jeffrey Green MD bisacodyl EC (DULCOLAX EC) tablet 10 mg 10 mg oral Daily PRN Jeffrey Green MD calcitRIOL (ROCALTROL) 1 mcg/mL oral solution 0.25 mcg 0.25 mcg feeding tube Daily Tyra De La Torre MD 0.25 mcg at 06/10/22 0850 [Held by Provider] calcium acetate(phosphat bind) (PHOSLO) capsule 667 mg 667 mg oral QID Dewey Parra MD 667 mg at 06/07/22 0801 chlorhexidine (PERIDEX) 0.12 % solution 15 mL 15 mL mouth/throat BID Meme Castro MD 15 mL at 06/10/22 0847 [Held by Provider] cloNIDine (CATAPRES) tablet 0.1 mg 0.1 mg oral BID Anurag Mortensen MD 0.1 mg at 06/07/22 0802 clopidogreL (PLAVIX) tablet 75 mg 75 mg feeding tube Daily Tyra De La Torre MD 75 mg at 06/10/22 0847 dextrose gel in packet 15 g 15 g oral Q15 Min PRN Meme Castro MD Or dextrose (D10W) 10% bolus 250 mL 250 mL intravenous Q15 Min PRN Meme Castro MD dextrose 10% infusion 10 mL/hr intravenous Continuous Tyra De La Torre MD 10 mL/hr at 06/10/22 1000 10 mL/hr at 06/10/22 1000 dextrose 5% water flush 10 mL 10 mL intra-catheter PRN Jeffrey Green MD dextrose 5% water flush 10-30 mL 10-30 mL intra-catheter PRN Jeffrey Green MD docusate (COLACE) 10 mg/mL oral liquid 100 mg 100 mg feeding tube Daily Tyra De La Torre MD 100 mg at 06/10/22 0847 DOPamine in dextrose 5% 400 mg/250 mL (1,600 mcg/mL) infusion (premix) - ADS Override Pull [Held by Provider] epoprostenol (VELETRI) 20 mcg/ml in 0.9% sodium chloride inhalation solution 40 mcg/hr nebulization Continuous (RT) Lavern Morrison MD Stopped at 06/10/22 0956 [Held by Provider] ergocalciferol (VITAMIN D) capsule 50,000 Units 50,000 Units oral Weekly Dewey Parra MD 50,000 Units at 06/06/22 0820 ezetimibe (ZETIA) tablet 10 mg 10 mg feeding tube Daily Tyra De La Torre MD 10 mg at 06/10/22 0847 fentaNYL (SUBLIMAZE) bolus from bag 50 mcg 50 mcg intravenous Q15 Min PRN Jeffrey Green MD 50mcg at 06/09/22 2030 fentaNYL (SUBLIMAZE) bolus from bag 50 mcg 50 mcg intravenous Q15 Min PRN Jeffrey Green MD 50mcg at 06/10/22 0500 fentaNYL 2500 mcg/50 mL cassette/syringe (premix) 0-400 mcg/hr intravenous Titrated Jeffrey Green MD 4 mL/hr at 06/10/22 1000 200 mcg/hr at 06/10/22 1000 fluticasone propionate (FLONASE) 50 mcg/actuation nasal spray 2 spray 2 spray each nostril BID PRN Dewey Parra MD glucagon injection 1 mg 1 mg intramuscular Q30 Min PRN Meme Castro MD heparin 1,000 unit/mL injection 1.5-6.9 mL 1.5-6.9 mL intra-catheter Q2H PRN Low Cardoso MD heparin 1,000 unit/mL injection 2,000 Units 2,000 Units intravenous Q6H PRN Dewey Parra MD Or heparin 1,000 unit/mL injection 3,000 Units 3,000 Units intravenous Q6H PRN Dewey Parra MD 3,000 Units at 06/05/22 2100 heparin 25 Units/mL in dextrose 5% 500 mL Impella purge fluid 0-30 mL/hr to machine Continuous Jeffrey Green MD 15.4 mL/hr at 06/10/22 1000 15.4 mL/hr at 06/10/22 1000 heparin in 0.9% sodium chloride 25,000 unit/250 mL infusion (premix) 0-33 Units/kg/hr intravenous Titrated Dewey Parra MD 12.78 mL/hr at 06/10/22 1000 9 Units/kg/hr at 06/10/22 1000 [Held by Provider] hydrALAZINE (APRESOLINE) tablet 100 mg 100 mg oral Q8H Anurag Mortensen MD insulin glargine (LANTUS, SEMGLEE) 100 unit/mL injection 33 Units 33 Units subcutaneous QAM Meme Castro MD 33 Units at 06/10/22 0847 insulin lispro (HumaLOG, ADMELOG) 100 unit/mL injection 0-10 Units 0-10 Units subcutaneous Q4H [facility] Meme Castro MD 2 Units at 06/10/22 0353 [Held by Provider] isosorbide mononitrate ER (IMDUR) extended release tablet 30 mg 30 mg oral DailyDewey Parra MD 30 mg at 06/07/22 0801 lidocaine (LIDODERM) 5 % patch 1 patch 1 patch transdermal Daily PRN Dewey Parra MD meropenem (MERREM) 1,000 mg/110 mL in sodium chloride 0.9% (premix) 1,000 mg 1,000 mg intravenous Q12H [facility] Tyra De La Torre MD 220 mL/hr at 06/10/22 0000 1,000 mg at 06/10/22 0000 [Held by Provider] metoprolol tartrate (LOPRESSOR) immediate release tablet 12.5 mg 12.5 mg oral Q6H Anurag Mortensen MD nitroglycerin in dextrose 5% 50 mg/250 mL (200 mcg/mL) infusion (premix) 0-400 mcg/min intravenous Titrated Dewey Parar MD Stopped at 06/05/22 2100 norepinephrine in 0.9% sodium chloride (LEVOPHED) 8,000 mcg/250 mL (32 mcg/mL) infusion (premix) 0-2 mcg/kg/min (Dosing Weight) intravenous Titrated Jeffrey Green MD Stopped at 06/08/22 0745 NxStage 4-potassium/2.5-calcium solution 1,400 mL/hr CRRT Continuous James Horvath MD 1,400mL/hr at 06/10/22 0905 1,400 mL/hr at 06/10/22 0905 NxStage 4-potassium/2.5-calcium solution 1,400 mL/hr CRRT Continuous James Horvath MD 1,400mL/hr at 06/10/22 0905 1,400 mL/hr at 06/10/22 0905 [Held by Provider] nystatin 100,000 unit/mL oral suspension 500,000 Units 500,000 Units swish &spit QID Low Cardoso MD 500,000 Units at 06/07/22 0802 ondansetron ODT (ZOFRAN-ODT) disintegrating tablet 4 mg 4 mg feeding tube Q6H PRN Tyra De La Torre MD Or ondansetron (ZOFRAN) injection 4 mg 4 mg intravenous Q6H PRN Tyra De La Torre MD pantoprazole (PROTONIX) 4 mg/mL injection 40 mg 40 mg intravenous BID Meme Castro MD 40 mg at 06/10/22 0847 phenoL (CHLORASEPTIC) 1.4 % oral spray 1 spray 1 spray mouth/throat Q2H PRN Dewey Parra MD polyethylene glycol (MIRALAX) packet 17 g 17 g feeding tube Daily PRN Tyra De La Torre MD polyethylene glycol (MIRALAX) packet 17 g 17 g feeding tube BID Lavern Morrison MD 17 g at1 0848 propofol (DIPRIVAN) 10 mg/mL infusion 0-50 mcg/kg/min intravenous Titrated Jeffrey Green MD 42.2 mL/hr at 06/10/22 1006 50 mcg/kg/min at 06/10/22 1006 ramelteon (ROZEREM) tablet 8 mg 8 mg feeding tube Nightly PRN Tyra De La Torre MD 8 mg at 06/08/22 2041 [Held by Provider] ranolazine ER (RANEXA) extended release tablet 500 mg 500 mg oral BID Dewey Parra MD 500 mg at 06/07/22 0801 senna (SENOKOT) tablet 1 tablet 1 tablet feeding tube Daily Lavern Morrison MD 1 tablet at1 0850 sodium chloride 0.9% infusion 10 mL/hr intravenous Continuous Champ Osborne MD PhD 10 mL/hr at 06/10/22 1000 10 mL/hr at 06/10/22 1000 sodium chloride 0.9% infusion 10 mL/hr intravenous Continuous Champ Osborne MD PhD 10 mL/hr at 06/09/22 0700 10 mL/hr at 06/09/22 0700 sodium chloride 0.9% infusion 10 mL/hr intravenous Continuous Jeffrey Green MD sodium chloride 0.9% infusion 10 mL/hr intravenous Continuous Jeffrey Green MD 10 mL/hr at 06/09/22 0700 10 mL/hr at 06/09/22 0700 sodium chloride 0.9% infusion 6 mL/hr intravenous Continuous Jeffrey Green MD 6 mL/hr at 06/10/22 1000 6 mL/hr at 06/10/22 1000 sodium chloride 0.9% solution 1,000 mL 1,000 mL dialysis circuit Low Fuller MD sodium chloride 0.9% solution 3-12 mL/hr intra-catheter Continuous Jeffrey Green MD sodium chloride 0.9% solution 3-12 mL/hr intra-catheter Continuous Jeffrey Green MD sodium chloride 0.9% solution 3-12 mL/hr intra-catheter Continuous Jeffrey Green MD 3 mL/hr at 06/10/22 1000 3 mL/hr at 06/10/22 1000 [Held by Provider] terazosin (HYTRIN) capsule 2 mg 2 mg oral Nightly Dewey Parra MD 2 mg at 06/06/222018 Laboratory review: Chemistry BMP Lab Results Component Value Date GLUCOSE 138 06/10/2022 GLUCOSE 138 06/10/2022 CALCIUM 8.4 (L) 06/10/2022 SODIUM 135 06/10/2022 POTASSIUM 4.3 06/10/2022 CO2 26 06/10/2022 BUNSER 20 06/10/2022 CREATININE 2.44 (H) 06/10/2022 , CBC: Lab Results Component Value Date WBC 10.2 (H) 06/10/2022 RBC 2.70 (L) 06/10/2022 HGB 8.3 (L) 06/10/2022 HGB 9.9 (L) 06/07/2022 HCT 25.1 (L) 06/10/2022 MCV 93.0 06/10/2022 MCH 30.7 06/10/2022 MCHC 33.1 06/10/2022 RDWCV 13.3 06/10/2022 RDWSD 45.1 06/10/2022 MPV 10.9 06/10/2022 NRBCABS 0.02 (H) 06/10/2022 , and Coags: Lab Results Component Value Date APTT 92 (H) 06/09/2022 Current meds/Labs/Test Results that may affect sedation reviewed: Yes Last PO Intake: Date of Last Liquid: 06/07/22, Time of Last Liquid: 1134 (water with meds) Date of Last Solid: 06/06/22, Time of Last Solid: 1800 HEENT Exam: negative Sedation Plan: Moderate Cosigned by Champ Osborne MD PhD at 06/10/2022 10:55 AM CDT * Plan of Care - Bambi Guerrero RN - 06/10/2022 6:52 AM CDT Problem: Safety: Goal: Will remain free from falls Outcome: Progressing Goal: Will remain free from injury from falls Outcome: Progressing Problem: Health Behavior: Goal: Understanding of discharge needs will improve Outcome: Not Progressing Problem: Activity: Goal: Ability to return to normal activity level will improve Outcome: Not Progressing Goals: Clinical Goals for the Shift: monitor hemodynamics; CVVHD management; impella/SGC #; I&O; appropriate sedation Summary: Impella weaned to p2 overnight. Veletri weaned off. Patient desatted to low 80s. MDs at bedside. Veletri turned back on to 2. CI all > 2. Will continue with plan of care and update as needed. * Plan of Care - Aury Reveles RRT - 06/10/2022 2:12 AM CDT Mechanical Ventilation Situation - Patient remains on full support throughout the night. Plan - Continue to monitor, evaluate and wean FIO2 as tolerated. Daily Medication Plan Situation - Patient was ordered on respiratory medications for pulmonary edema and lowering pulmonary artery pressures. . Patient tolerated treatment without issue. Plan - Continue treatment as ordered Veletri titrated down to 4 mL/hr from 6 mL/hr * Plan of Care - Perla Lino RN - 06/09/2022 6:24 PM CDT Goals: Problem: Health Behavior: Goal: Understanding of discharge needs will improve Outcome: Progressing Problem: Lack of Knowledge: Goal: Ability to state ways to decrease the risk of falls will improve Outcome: Progressing Problem: Safety: Goal: Will remain free from falls Outcome: Progressing Goal: Will remain free from injury from falls Outcome: Progressing Goal: Will remain free from falls and injury in home environment Outcome: Progressing Problem: Lack of Knowledge: Goal: Knowledge of disease or condition and prescribed therapeutic regimen will improve Outcome: Progressing Problem: Coping: Goal: Level of anxiety will decrease Outcome: Progressing Problem: Sensory: Goal: Pain level will decrease Outcome: Progressing Problem: Lack of Knowledge: Goal: Ability to describe self-care measures that may prevent or decrease complications will improve Outcome: Progressing Goal: Knowledge of disease or condition will improve Outcome: Progressing Goal: Knowledge of the prescribed therapeutic regimen will improve Outcome: Progressing Goal: Knowledge of prevention and discharge planning will improve Outcome: Progressing Problem: Coping: Goal: Ability to adjust to condition or change in health will improve Outcome: Progressing Problem: Fluid Volume: Goal: Ability to maintain a balanced intake and output will improve Outcome: Progressing Problem: Health Behavior: Goal: Ability to identify and alter actions that are detrimental to health will improve Outcome: Progressing Goal: Ability to identify and utilize available resources and services will improve Outcome: Progressing Goal: Ability to manage health-related needs will improve Outcome: Progressing Problem: Nutritional: Goal: Maintenance of adequate nutrition will improve Outcome: Progressing Goal: Progress toward achieving an optimal weight will improve Outcome: Progressing Problem: Physical Regulation: Goal: Complications related to the disease process, condition or treatment will be avoided or minimized Outcome: Progressing Goal: Diagnostic test results will improve Outcome: Progressing Problem: Skin Integrity: Goal: Risk for impaired skin integrity will decrease Outcome: Progressing Problem: Lack of Knowledge: Goal: Ability to develop a pain control plan will improve Outcome: Progressing Goal: Ability to identify pain intensity on a pain scale and rate it consistently will improve Outcome: Progressing Goal: Ability to notify healthcare provider of pain before it becomes unmanageable or unbearable will improve Outcome: Progressing Problem: Medication: Goal: Satisfaction with pain management regimen will improve Outcome: Progressing Problem: Sensory: Goal: Ability to identify factors that increase the pain will improve Outcome: Progressing Goal: Pain level will decrease Outcome: Progressing Problem: Activity: Goal: Ability to return to normal activity level will improve Outcome: Progressing Problem: Lack of Knowledge: Goal: Knowledge of the prescribed therapeutic regimen will improve Outcome: Progressing Problem: Coping: Goal: Ability to cope will improve Outcome: Progressing Problem: Health Behavior: Goal: Identification of resources available to assist in meeting health care needs will improve Outcome: Progressing Problem: Sensory: Goal: Pain level will decrease Outcome: Progressing Problem: Cardiac: Goal: Ability to maintain an adequate cardiac output will improve Outcome: Progressing Goal: Hemodynamic stability will improve Outcome: Progressing Problem: Lack of Knowledge: Goal: Ability to state signs and symptoms to report to health care provider will improve Outcome: Progressing Goal: Knowledge of the prescribed therapeutic regimen will improve Outcome: Progressing Goal: Mental status will improve Outcome: Progressing Problem: Fluid Volume: Goal: Ability to achieve and maintain adequate urine output will improve Outcome: Progressing Problem: Respiratory: Goal: Respiratory status will improve Outcome: Progressing Problem: Lack of Knowledge: Goal: Verbalization of understanding the information provided will improve Outcome: Progressing Problem: Lack of Knowledge: Goal: Ability to develop a pain control plan will improve Outcome: Progressing Goal: Ability to identify pain intensity on a pain scale and rate it consistently will improve Outcome: Progressing Goal: Ability to notify healthcare provider of pain before it becomes unmanageable or unbearable will improve Outcome: Progressing Problem: Medication: Goal: Satisfaction with pain management regimen will improve Outcome: Progressing Problem: Sensory: Goal: Ability to identify factors that increase the pain will improve Outcome: Progressing Goal: Pain level will decrease Outcome: Progressing Clinical Goals for the Shift: increase CVVHD as pt cody to fluid balance -2L; monitor pressure effectiveness, pulmonary toileting/preoxygenate prior to suctioning, pulmonary consult, wean veletri as cody/ordered, vent changes as ordered, sedation to maintain RASS -2, explain plan of care to pt, thermo dilution for hemodynamics, monitor fluid balance, monitor Impella effect, comfort Summary: CVVHD managed and titrated for fluid balance, FiO2 lowered to 70%. Plan to wean veletri, sedation on fentanyl increased due to agitation, care explained to pt and brother Ronny, comfort promoted by regularly turning, Impella weaned to P4, thermodilutions started due to swan not working * Consults, Subsequent - Vonnie Cody MD - 06/09/2022 6:04 PM CDT Nephrology SLED/CRRT Procedure Note Date of Service: 06/09/2022 I saw and evaluated the patient during CRRT. 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 Tolerating CVVHDF with fluid removal rate of 200 ml/hour. Treatment Type: Continuous veno-venous hemodiafiltration Machine Type: Prismaflex Filter Type: M150 Dialysate Fluid: NxStage 4Potassium/2.5Calcium Pre-Pump Replacement Fluid: NxStage 4Potassium/2.5Calcium Flow Rates Blood Flow Rate (mL/min): 300 mL/min Dialysate Flow Rate (mL/hr): 1400 mL/hr Pre-Pump Replacement Rate (mL/hr): 1400 mL/hr Patient Fluid Removal Set Rate (mL/hr): 350 mL/hr Pressures Access Pressure (mmHg): -121 mmHg Filter Pressure (mmHg): 237 mmHg Effluent Pressure (mmHg): 11 mmHg Return Pressure (mmHg): 115 mmHg Trans-Membrane Pressure (mmHg): 150 mmHg Delta P (mmHg): 100 mmHg 24hr Min/Max: Temp Min: 36.6 ??C (97.9 ??F) Max: 36.6 ??C (97.9 ??F) Pulse Min: 42 Max: 76 Resp Min: 20 Max: 21 SpO2 Min: 89 % Max: 96 % Most Recent: BP 100/48 Pulse 56 Temp 36.6 ??C (97.9 ??F) (Axillary) Resp 20 Ht 177.8 cm (5' 10 ) Wt (!) 136.6 kg (301 lb 2.4 oz) SpO2 92% BMI 43.21 kg/m?? I/O last 2 completed shifts: In: 2665.9 [I.V.:2355.9; NG/GT:70; IV Piggyback:240] Out: 4620 [Urine:700; Other:3920] I/O this shift: In: 1128.5 [I.V.:1008.5; NG/GT:120] Out: 3726 [Urine:415; Other:3311] Medications, laboratory findings, and imaging studies reviewed. Medications: [Held by Provider] amLODIPine, 10 mg, oral, Daily aspirin, 81 mg, feeding tube, Daily atorvastatin, 80 mg, feeding tube, Daily calcitRIOL, 0.25 mcg, feeding tube, Daily [Held by Provider] calcium acetate(phosphat bind), 667 mg, oral, QID chlorhexidine, 15 mL, mouth/throat, BID [Held by Provider] cloNIDine, 0.1 mg, oral, BID clopidogreL, 75 mg, feeding tube, Daily docusate, 100 mg, feeding tube, Daily [Held by Provider] ergocalciferol, 50,000 Units, oral, Weekly ezetimibe, 10 mg, feeding tube, Daily [Held by Provider] hydrALAZINE, 100 mg, oral, Q8H insulin glargine, 33 Units, subcutaneous, QAM insulin lispro, 0-10 Units, subcutaneous, Q4H ASHLEY [Held by Provider] isosorbide mononitrate ER, 30 mg, oral, Daily meropenem, 1,000 mg, intravenous, Q12H ASHLEY [Held by Provider] metoprolol tartrate, 12.5 mg, oral, Q6H [Held by Provider] nystatin, 500,000 Units, swish & spit, QID pantoprazole, 40 mg, intravenous, BID polyethylene glycol, 17 g, feeding tube, Daily [Held by Provider] ranolazine ER, 500 mg, oral, BID [Held by Provider] terazosin, 2 mg, oral, Nightly dextrose 10%, 10 mL/hr, Last Rate: 10 mL/hr (06/09/22 1540) epoprostenol, 120 mcg/hr, Last Rate: 120 mcg/hr (06/09/22 1600) fentaNYL, 0-400 mcg/hr, Last Rate: 175 mcg/hr (06/09/22 1800) impella purge solution infusion, 0-30 mL/hr, Last Rate: 15.8 mL/hr (06/09/22 1400) heparin, 0-33 Units/kg/hr, Last Rate: 9 Units/kg/hr (06/09/22 1800) nitroglycerin, 0-400 mcg/min, Last Rate: Stopped (06/05/22 2100) norepinephrine, 0-2 mcg/kg/min (Dosing Weight), Last Rate: Stopped (06/08/22 0745) NxStage 4-potassium/2.5-calcium, 1,400 mL/hr, Last Rate: 1,400 mL/hr (06/09/22 1419) NxStage 4-potassium/2.5-calcium, 1,400 mL/hr, Last Rate: 1,400 mL/hr (06/09/22 1418) propofol, 0-50 mcg/kg/min, Last Rate: 40 mcg/kg/min (06/09/22 1800) sodium chloride 0.9%, 10 mL/hr, Last Rate: 10 mL/hr (06/09/22 1700) sodium chloride 0.9%, 10 mL/hr, Last Rate: 10 mL/hr (06/09/22 0700) sodium chloride 0.9%, 10 mL/hr sodium chloride 0.9%, 10 mL/hr, Last Rate: 10 mL/hr (06/09/22 0700) sodium chloride 0.9%, 6 mL/hr, Last Rate: 9 mL/hr (06/09/22 0700) sodium chloride 0.9%, 1,000 mL sodium chloride 0.9%, 3-12 mL/hr sodium chloride 0.9%, 3-12 mL/hr sodium chloride 0.9%, 3-12 mL/hr, Last Rate: Stopped (06/07/22 1901) Recent Labs Lab Units 06/09/22 0757 06/08/22 2327 06/08/22200706/08/22 0214 WBC K/cumm 8.6 -- 9.3 10.1* HEMOGLOBIN g/dL 8.1* 7.5* 6.9* 8.3* PLATELETS K/cumm 179 -- 207 218 Recent Labs Lab Units 06/09/22 0757 06/08/22200706/08/22 0412 06/08/22 0028 06/07/22 2258 06/07/22 1708 SODIUM mmol/L 134* 136 135 < > 134* 129* POTASSIUM PLASMA mmol/L 4.5 4.3 4.0 < > 3.4 See Comment CHLORIDE mmol/L 99 100 99 < > 95* 87* CO2 mmol/L 28 27 26 < > 23 21* BUN SERUM mg/dL 32* 42* 67* < > 75* 80* CREATININE mg/dL 3.50* 4.73* 7.65* < > 8.92* 10.36* CALCIUM mg/dL 8.4* 8.4* 8.2* < > 8.1* 8.1* MAGNESIUM mg/dL 2.3 2.4 2.3 < > 2.2 2.2 PHOSPHORUS PLASMA mg/dL -- 3.7 -- -- 4.7* 7.2* < > = values in this interval not displayed. Vonnie Cody MD publishing systems analyst Division of Nephology Consult 1: After 4 PM on , after 12 PM on Monday, and all day Monday, please contact on-call renal fellow at with questions. * Assessment & Plan Note - Bobby Mary MD - 06/09/2022 3:51 PM CDT Associated Problem(s): Acute hypoxemic respiratory failure (HCC) Mr. Garvin is a 51 y/o M with medical [...] agitation as well as tachypnea, which is likelycomplicated by need for PD following clotting of [...] BiPAP liberally; wean Fentanyl further in the marie- extubation period. --Continue IPV to assist with mucous clearance --Continue antibiotics per primary team --Continue to keep as dry as possible * Consults, Subsequent - Kellee Magallanes MD - 06/09/2022 11:48 AM CDT Endocrinology & Diabetes Progress Note Patient: Adelia Rodriguez Pilo Brock, 51 y.o. male (: 1970) Room: [place] [address]/[place] [address] ( ) LOS: 5 Adelia Garvin Jr. is a 51 y.o. male with PMHx CHF (EF 50% in 2017), atrial fibrillation not on OAC, HTN/HLD, CAD s/p PCI, ESRD on PD, hyperparathyroidism presenting with weakness, N/V, diarrhea and chest pain. He is scheduled for [facility] on 06/06. Diabetes service consulted for T1DM on insulin pump. Interval Events & Subjective He is still sedated intubated , no significant improvement in his oxygen needs. He is currently on D10% 20 ml/hr Minimal requirements on ISS BS readings are controlled Diet: No diet orders on file Recent Labs Lab Units 06/09/22 0757 06/09/22 0755 06/09/22 0406 06/08/22 2325 06/08/22200706/08/22 2004 06/08/22200206/08/22 1620 06/08/22 1146 06/08/22 0831 GLUCOSE mg/dL 171 -- -- -- 146 -- -- -- -- -- POC GLUCOSE MONITOR mg/dL -- 155 147 156 -- 153 162 135 140 160 Interval Review of Systems Twelve point ROS reviewed and negative except as noted in HPI. All other systems negative. Vitals & Exam Pulse: [42-60] 51 Resp: [20-21] 20 SpO2: [90 %-96 %] 93 % Arterial Line BP: (100-143)/(44-54) 127/52 FiO2 (%): [70 %-80 %] 70 % I/O this shift: In: 339.1 [I.V.:339.1] Out: 1152 [Urine:230; Other:922] Physical Exam Gen : sedated, intubated, doesn't follow commands Eyes : conjunctiva clear, anicteric Pulm : intubated , bilateral crackles Extr : Bilateral pitting edema Skin : turgor normal, no rashes/wounds/lesions Neuro : sedated, doesn't follow commands Data Medications, labs, imaging, and diagnostics independently reviewed in Epic and commented on below. Lab Results Component Value Date TSH 0.80 03/21/2017 Lab Results Component Value Date CHOL 149 06/04/2022 TRIG 172 (H) 06/07/2022 HDL 34 (L) 06/04/2022 LDLCALC 82 06/04/2022 Lab Results Component Value Date 25HYDROVITD 22.7 (L) 03/22/2017 Lab Results Component Value Date HGBA1C 7.8 (H) 06/04/2022 Assessment & Plan 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, with prison use of insulin, complicated by ESRD on PD, CAD s/p PCI, CHF - HbA1c 7.4% - Uses Omnipod and Dexcom G6 at home, not currently on this- doesn't have the supplies -On significantly higher basal rates on pump at night due to peritoneal dialysis -home settings: Basal rate 0330 >>1.7 0800 >> 0.8 2000 >> 5.8 ICR1:6.5 ISF1:25 [id number] TIA 4 Recommendations: - Lantus 33 units qAM - continue on D10% 20 ml/hr as a source of calories until TF is started to prevent him from going to ketosis - Resistant correctional Humalog q4 hrs - POC glucoses q4hrs Discharge recommendations: Start Omnipod insulin pump at pre-hospital settings #Acute hypoxic respiratory failure #ESRD on PD at home - on CRRT ## Discharge Planning - Follow-up with home green house manager -- Kellee Magallanes MD Endocrinology, Metabolism, & Lipid Research Contact Info: New Consults: [phone]) General Endocrine (Non-Diabetes): [phone] (Check 'Treatment Team' assignment for Diabetes 1 vs 2 vs 3) Diabetes 1: Diabetes Fellow: [phone] Diabetes 2: Dora Delarosa, CHIEF AIRLINE RADIO OPERATOR: [phone] Diabetes 3: See Treatment Team Provider (or call Dora Delarosa, above) Diabetes After-Hours & Weekends: Diabetes Fellow Cosigned by Bryce Langley MD at 06/09/2022 12:58 PM CDT Associated attestation - Bryce Langley MD - 06/09/2022 12:58 PM CDT I have seen and examined the patient on 06/09/22. I agree with the findings and plan of care as documented in the resident's/fellow's note.I spent a total of 20 minutes of which more than 50% of the time was spent in counseling and coordination of care. This time included review of the patient's chart, glucose flowsheet, recent laboratory data and bedside discussion with the patient. Bryce Langley MD, [facility] Biology Department Chairpublishing systems analyst Division of Endocrinology, Metabolism & Lipid Research * Plan of Care - Willow Ruiz RRT - 06/09/2022 4:50 AM CDT Mechanical Ventilation Situation - Patient remains on full support throughout the night. AC/VC 20/500/12+/80%. He is also on continuous Veletri. Shift start was 6mL/hr, at 2021 a new syringe was placed, at 0330 rate was changed to 4mL/hr, at 0615 rate was changed back to 6mL/hr Plan - Continue to monitor, evaluate and wean FIO2 as tolerated. * Plan of Care - Rachel Masters RN - 06/09/2022 1:45 AM CDT Goals: Clinical Goals for the Shift: monitor hemodynamics, CRRT, impella/sgc mgmt. wean veletri/vent settings as tolerated Summary: Problem: Health Behavior: Goal: Understanding of discharge needs will improve Outcome: Progressing Problem: Lack of Knowledge: Goal: Ability to state ways to decrease the risk of falls will improve Outcome: Progressing Problem: Safety: Goal: Will remain free from falls Outcome: Progressing Goal: Will remain free from injury from falls Outcome: Progressing Goal: Will remain free from falls and injury in home environment Outcome: Progressing Problem: Lack of Knowledge: Goal: Knowledge of disease or condition and prescribed therapeutic regimen will improve Outcome: Progressing Problem: Coping: Goal: Level of anxiety will decrease Outcome: Progressing Problem: Sensory: Goal: Pain level will decrease Outcome: Progressing Problem: Lack of Knowledge: Goal: Ability to describe self-care measures that may prevent or decrease complications will improve Outcome: Progressing Goal: Knowledge of disease or condition will improve Outcome: Progressing Goal: Knowledge of the prescribed therapeutic regimen will improve Outcome: Progressing Goal: Knowledge of prevention and discharge planning will improve Outcome: Progressing Problem: Coping: Goal: Ability to adjust to condition or change in health will improve Outcome: Progressing Problem: Fluid Volume: Goal: Ability to maintain a balanced intake and output will improve Outcome: Progressing Problem: Health Behavior: Goal: Ability to identify and alter actions that are detrimental to health will improve Outcome: Progressing Goal: Ability to identify and utilize available resources and services will improve Outcome: Progressing Goal: Ability to manage health-related needs will improve Outcome: Progressing Problem: Nutritional: Goal: Maintenance of adequate nutrition will improve Outcome: Progressing Goal: Progress toward achieving an optimal weight will improve Outcome: Progressing Problem: Physical Regulation: Goal: Complications related to the disease process, condition or treatment will be avoided or minimized Outcome: Progressing Goal: Diagnostic test results will improve Outcome: Progressing Problem: Skin Integrity: Goal: Risk for impaired skin integrity will decrease Outcome: Progressing Problem: Lack of Knowledge: Goal: Ability to develop a pain control plan will improve Outcome: Progressing Goal: Ability to identify pain intensity on a pain scale and rate it consistently will improve Outcome: Progressing Goal: Ability to notify healthcare provider of pain before it becomes unmanageable or unbearable will improve Outcome: Progressing Problem: Medication: Goal: Satisfaction with pain management regimen will improve Outcome: Progressing Problem: Sensory: Goal: Ability to identify factors that increase the pain will improve Outcome: Progressing Goal: Pain level will decrease Outcome: Progressing Problem: Lack of Knowledge: Goal: Ability to develop a pain control plan will improve Outcome: Progressing Goal: Ability to identify pain intensity on a pain scale and rate it consistently will improve Outcome: Progressing Goal: Ability to notify healthcare provider of pain before it becomes unmanageable or unbearable will improve Outcome: Progressing Problem: Medication: Goal: Satisfaction with pain management regimen will improve Outcome: Progressing Problem: Sensory: Goal: Ability to identify factors that increase the pain will improve Outcome: Progressing Goal: Pain level will decrease Outcome: Progressing Problem: Activity: Goal: Ability to return to normal activity level will improve Outcome: Progressing Problem: Lack of Knowledge: Goal: Knowledge of the prescribed therapeutic regimen will improve Outcome: Progressing Problem: Coping: Goal: Ability to cope will improve Outcome: Progressing Problem: Health Behavior: Goal: Identification of resources available to assist in meeting health care needs will improve Outcome: Progressing Problem: Sensory: Goal: Pain level will decrease Outcome: Progressing Problem: Cardiac: Goal: Ability to maintain an adequate cardiac output will improve Outcome: Progressing Goal: Hemodynamic stability will improve Outcome: Progressing Problem: Lack of Knowledge: Goal: Ability to state signs and symptoms to report to health care provider will improve Outcome: Progressing Goal: Knowledge of the prescribed therapeutic regimen will improve Outcome: Progressing Goal: Mental status will improve Outcome: Progressing Problem: Fluid Volume: Goal: Ability to achieve and maintain adequate urine output will improve Outcome: Progressing Problem: Lack of Knowledge: Goal: Verbalization of understanding the information provided will improve Outcome: Progressing Problem: Respiratory: Goal: Patient will maintain patent airway Outcome: Progressing Goal: Ability to achieve and maintain a regular respiratory rate will improve Outcome: Progressing Goal: ET Tube will be safely managed Outcome: Progressing Goal: Ability to express needs and understand communication will be maintained or improved Outcome: Progressing Goal: Ability to avoid complications of mobility impairment will be maintained or improved Outcome: Progressing Problem: Skin/Mucous Membrane Integrity: Goal: Risk for impaired skin integrity will decrease Outcome: Progressing Goal: Status of oral mucous membranes will be maintained or improved Outcome: Progressing Problem: Activity: Goal: Risk for activity intolerance will decrease Outcome: Progressing Goal: Will verbalize the importance of balancing activity with adequate rest periods Outcome: Progressing Problem: Cardiac: Goal: Hemodynamic stability will improve Outcome: Progressing Problem: Lack of Knowledge: Goal: Family's and patient's knowledge of disease or condition will improve Outcome: Progressing Goal: Family's and patient's knowledge of the prescribed therapeutic regimen will improve Outcome: Progressing Problem: Health Behavior: Goal: Ability to identify changes in lifestyle to reduce recurrence of condition will improve Outcome: Progressing Goal: Ability to manage health-related needs will improve Outcome: Progressing Problem: Nutritional: Goal: Ability to identify appropriate dietary choices will improve Outcome: Progressing Problem: Physical Regulation: Goal: Complications related to the disease process, condition or treatment will be avoided or minimized Outcome: Progressing Goal: Diagnostic test results will improve Outcome: Progressing Problem: Self-Concept: Goal: Ability to identify strategies to decrease anxiety will improve Outcome: Progressing Goal: Ability to verbalize feelings about condition will improve Outcome: Progressing Problem: Sensory: Goal: Expressions of feelings of enhanced comfort will increase Outcome: Progressing Goal: Pain level will decrease Outcome: Progressing Problem: Lack of Knowledge: Goal: Knowledge of safety precautions will improve Outcome: Progressing Goal: Ability to identify signs and symptoms will improve Outcome: Progressing Goal: Verbalization of understanding the information provided will improve Outcome: Progressing Problem: Fluid Volume: Goal: Ability to achieve a balanced intake and output will improve Outcome: Progressing Goal: Will show no signs and symptoms of excessive bleeding Outcome: Progressing Problem: Physical Regulation: Description: Module scope: This module is for use by staff nurses caring for patients who receive hemodialysis. - This module is not intended to be all- inclusive and has been created for use by a wide variety of institutions with a multiplicity of available resources, patient populations, and specific needs. Goal: Complications related to the disease process, condition or treatment will be avoided or minimized Outcome: Progressing * Consults, Subsequent - Kellee Magallanes MD - 06/08/2022 5:06 PM CDT Endocrinology & Diabetes Progress Note Patient: Adelia Garvin Jr., 51 y.o. male (: 1970) Room: [place] [id number] ( ) LOS: 4 Adelia Garvin Jr. is a 51 y.o. male with PMHx CHF (EF 50% in 2017), atrial fibrillation not on OAC, HTN/HLD, CAD s/p PCI, ESRD on PD, hyperparathyroidism presenting with weakness, N/V, diarrhea and chest pain. He is scheduled for C on 06/06. Diabetes service consulted for T1DM on insulin pump. Interval Events & Subjective Yesterday he had a heart cath and during the procedure he became hypoxic and hypotensive. He was transferred to the ICU. Initially needed levophed and epi, but they were able to wean him off pressorsthis morning. He is currently intubated and sedated on CRRT. When he got transferred his initial labs showed elevated AG of 27, pco 2 27, ph 7.49, BHB 2.3. he was started on an insulin drip until hisBHB and AG improved. Diet: No diet orders on file Recent Labs Lab Units 06/08/22 1620 06/08/22 1146 06/08/22 0831 06/08/22 0629 06/08/22 0526 06/08/22 0416 06/08/22 0412 06/08/22 0300 06/08/22 0214 06/08/22 0113 GLUCOSE mg/dL -- -- -- -- -- -- 109 -- -- -- POC GLUCOSE MONITOR mg/dL 135 140 160 157 121 111 -- 135 141 151 Interval Review of Systems Twelve point ROS reviewed and negative except as noted in HPI. All other systems negative. Vitals & Exam Temp: [36.6 ??C (97.9 ??F)] 36.6 ??C (97.9 ??F) Pulse: [43-53] 49 Resp: [20] 20 SpO2: [86 %-95 %] 91 % Arterial Line BP: (99-123)/(45-53) 105/47 FiO2 (%): [80 %] 80 % I/O this shift: In: 1150.9 [I.V.:960.9; NG/GT:70; IV Piggyback:120] Out: 1489 [Other:1489] Physical Exam Gen : sedated, intubated, doesn't follow commands Eyes : conjunctiva clear, anicteric Pulm : intubated , bilateral crackles Extr : Bilateral pitting edema Skin : turgor normal, no rashes/wounds/lesions Neuro : sedated, doesn't follow commands Data Medications, labs, imaging, and diagnostics independently reviewed in Epic and commented on below. Lab Results Component Value Date TSH 0.80 03/21/2017 Lab Results Component Value Date CHOL 149 06/04/2022 TRIG 172 (H) 06/07/2022 HDL 34 (L) 06/04/2022 LDLCALC 82 06/04/2022 Lab Results Component Value Date 25HYDROVITD 22.7 (L) 03/22/2017 Lab Results Component Value Date HGBA1C 7.8 (H) 06/04/2022 Assessment & Plan 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, with prison use of insulin, complicated by ESRD on PD, CAD s/p PCI, CHF - HbA1c 7.4% - Uses Omnipod and Dexcom G6 at home, not currently on this- doesn't have the supplies -On significantly higher basal rates on pump at night due to peritoneal dialysis -home settings: Basal rate 0330 >>1.7 0800 >> 0.8 2000 >> 5.8 ICR1:6.5 ISF1:25 AHB328 TIA 4 Recommendations: - Lantus 33 units qAM - please start him on D10% 20 ml/hr as a source of calories until TF is started to prevent him fromgoing to ketosis - Resistant correctional Humalog q4 hrs - POC glucoses q4hrs Discharge recommendations: Start Omnipod insulin pump at pre-hospital settings #Acute hypoxic respiratory failure - on CRRT , they are able to remove 200 ml/hr #NSTEMI #CAD s/p PCI 03/2017 (RCA) and 3 stent 12/07 (prox, mid, and distal RCA) #CHF - he is on a heparin drip #ESRD on PD - currently on CRRT ## Discharge Planning - Follow-up with home green house manager -- Kellee Magallanes MD Endocrinology, Metabolism, & Lipid Research Contact Info: New Consults: [phone]) General Endocrine (Non-Diabetes): [phone] (Check 'Treatment Team' assignment for Diabetes 1 vs 2 vs 3) Diabetes 1: Diabetes Fellow: [phone] Diabetes 2: Dora Delarosa, CHIEF AIRLINE RADIO OPERATOR: [phone] Diabetes 3: See Treatment Team Provider (or call Dora Delarosa, above) Diabetes After-Hours & Weekends: Diabetes Fellow Cosigned by Teresa Garcia MD at 06/08/2022 7:09 PM CDT Associated attestation - Teresa Garcia MD - 06/08/2022 7:09 PM CDT I have seen and examined the patient on 06/08/22. I agree with the findings and plan of care as documented in the resident's/fellow's note.. * Incidental Note - Fernando Torres MD - 06/08/2022 1:49 PM CDT Trialysis catheter placement: Following percutaneous coronary intervention from 06/07/2022, given patients deteriorating clinicalstatus and flash pulmonary edema we proceeded with the placement of a trialysis line for continuousdialysis. This was placed emergently and under fluoroscopy with catheter tip at the junction of the superior vena cava and right atrium. The catheter was a 30 cm catheter and was secured at the 20 cm joyce. He was then taken to the cardiac critical care unit where I was informed that this catheter could not be used as 10 cm worth of catheter were outside the patients body. After talking to CCU team we decided to exchange this catheter for a 20 cm trialysis line over the wire. Chest X-ray was obtained and appropriate catheter position was confirmed and per chart review he was started on hemodialysis. Family has been informed of this procedure. * Plan of Care - Figueroa Jack RN - 06/08/2022 10:21 AM CDT Goals: Problem: Health Behavior: Goal: Understanding of discharge needs will improve Outcome: Progressing Problem: Lack of Knowledge: Goal: Ability to state ways to decrease the risk of falls will improve Outcome: Progressing Problem: Safety: Goal: Will remain free from falls Outcome: Progressing Goal: Will remain free from injury from falls Outcome: Progressing Goal: Will remain free from falls and injury in home environment Outcome: Progressing Problem: Lack of Knowledge: Goal: Knowledge of disease or condition and prescribed therapeutic regimen will improve Outcome: Progressing Problem: Coping: Goal: Level of anxiety will decrease Outcome: Progressing Problem: Sensory: Goal: Pain level will decrease Outcome: Progressing Problem: Lack of Knowledge: Goal: Ability to describe self-care measures that may prevent or decrease complications will improve Outcome: Progressing Goal: Knowledge of disease or condition will improve Outcome: Progressing Goal: Knowledge of the prescribed therapeutic regimen will improve Outcome: Progressing Goal: Knowledge of prevention and discharge planning will improve Outcome: Progressing Problem: Coping: Goal: Ability to adjust to condition or change in health will improve Outcome: Progressing Problem: Fluid Volume: Goal: Ability to maintain a balanced intake and output will improve Outcome: Progressing Problem: Health Behavior: Goal: Ability to identify and alter actions that are detrimental to health will improve Outcome: Progressing Goal: Ability to identify and utilize available resources and services will improve Outcome: Progressing Goal: Ability to manage health-related needs will improve Outcome: Progressing Problem: Nutritional: Goal: Maintenance of adequate nutrition will improve Outcome: Progressing Goal: Progress toward achieving an optimal weight will improve Outcome: Progressing Problem: Physical Regulation: Goal: Complications related to the disease process, condition or treatment will be avoided or minimized Outcome: Progressing Goal: Diagnostic test results will improve Outcome: Progressing Problem: Skin Integrity: Goal: Risk for impaired skin integrity will decrease Outcome: Progressing Problem: Lack of Knowledge: Goal: Ability to develop a pain control plan will improve Outcome: Progressing Goal: Ability to identify pain intensity on a pain scale and rate it consistently will improve Outcome: Progressing Goal: Ability to notify healthcare provider of pain before it becomes unmanageable or unbearable will improve Outcome: Progressing Problem: Medication: Goal: Satisfaction with pain management regimen will improve Outcome: Progressing Problem: Sensory: Goal: Ability to identify factors that increase the pain will improve Outcome: Progressing Goal: Pain level will decrease Outcome: Progressing Problem: Activity: Goal: Ability to return to normal activity level will improve Outcome: Progressing Problem: Lack of Knowledge: Goal: Knowledge of the prescribed therapeutic regimen will improve Outcome: Progressing Problem: Coping: Goal: Ability to cope will improve Outcome: Progressing Problem: Health Behavior: Goal: Identification of resources available to assist in meeting health care needs will improve Outcome: Progressing Problem: Sensory: Goal: Pain level will decrease Outcome: Progressing Clinical Goals for the Shift: Monitor hemodynamics, labs, I/O. Wean pressors and sedation as tolerated. Impella managment. CVVHDF management. * Consults, Subsequent - Vonnie Cody MD - 06/08/2022 9:38 AM CDT Nephrology SLED/CRRT Procedure Note Date of Service: 06/08/2022 Events yesterday noted. S/p complex PCI and Impella placement for cardiogenic shock. Transferred toICU and started CRRT. ESRD: Continue CRRT in setting of hemodynamic instability. Plan to flush PD catheter weekly. ResumePD in the future once pt is more stable. Volume overload: Increase UF as tolerated. Monitor K and phos daily. D/C phos binder (phos-Lo). I saw and evaluated the patient during CRRT. 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 Tolerating CVVHDF with fluid removal rate of 150 ml/hour. Treatment Type: Continuous veno-venous hemodiafiltration Machine Type: Prismaflex Filter Type: M150 Dialysate Fluid: NxStage 4Potassium/2.5Calcium Pre-Pump Replacement Fluid: NxStage 4Potassium/2.5Calcium Flow Rates Blood Flow Rate (mL/min): 300 mL/min Dialysate Flow Rate (mL/hr): 1400 mL/hr Pre-Pump Replacement Rate (mL/hr): 1400 mL/hr Patient Fluid Removal Set Rate (mL/hr): 150 mL/hr Pressures Access Pressure (mmHg): -119 mmHg Filter Pressure (mmHg): 225 mmHg Effluent Pressure (mmHg): 59 mmHg Return Pressure (mmHg): 122 mmHg Trans-Membrane Pressure (mmHg): 101 mmHg Delta P (mmHg): 62 mmHg 24hr Min/Max: Temp Min: 36.6 ??C (97.9 ??F) Max: 37 ??C (98.6 ??F) Pulse Min: 42 Max: 73 BP Min: 79/67 Max: 155/69 Resp Min: 10 Max: 34 SpO2 Min: 90 % Max: 100 % Most Recent: BP 100/48 Pulse 50 Temp 36.6 ??C (97.9 ??F) (Axillary) Resp 20 Ht 177.8 cm (5' 10 ) Wt (!) 139.6 kg (307 lb 12.2 oz) SpO2 94% BMI 44.16 kg/m?? I/O last 2 completed shifts: In: 2420.1 [P.O.:330; I.V.:1675.1; NG/GT:60; IV Piggyback:355] Out: -107 I/O this shift: In: 427.7 [I.V.:347.7; NG/GT:70; IV Piggyback:10] Out: 91 [Other:91] Medications, laboratory findings, and imaging studies reviewed. Medications: [Held by Provider] amLODIPine, 10 mg, oral, Daily aspirin, 81 mg, oral, Daily [START ON 06/09/2022] atorvastatin, 80 mg, feeding tube, Daily [START ON 06/09/2022] calcitRIOL, 0.25 mcg, feeding tube, Daily [Held by Provider] calcium acetate(phosphat bind), 667 mg, oral, QID [Held by Provider] cloNIDine, 0.1 mg, oral, BID [START ON 06/09/2022] clopidogreL, 75 mg, feeding tube, Daily [START ON 06/09/2022] docusate sodium, 100 mg, feeding tube, Daily [Held by Provider] ergocalciferol, 50,000 Units, oral, Weekly [START ON 06/09/2022] ezetimibe, 10 mg, feeding tube, Daily [Held by Provider] hydrALAZINE, 100 mg, oral, Q8H insulin glargine, 33 Units, subcutaneous, QAM insulin lispro, 0-10 Units, subcutaneous, Q4H ASHLEY [Held by Provider] isosorbide mononitrate ER, 30 mg, oral, Daily lidocaine EPINEPHrine, 10 mL, infiltration, Once meropenem, 500 mg, intravenous, Q24H [Held by Provider] metoprolol tartrate, 12.5 mg, oral, Q6H [Held by Provider] nystatin, 500,000 Units, swish & spit, QID pantoprazole, 40 mg, intravenous, BID [START ON 06/09/2022] polyethylene glycol, 17 g, feeding tube, Daily [Held by Provider] ranolazine ER, 500 mg, oral, BID [Held by Provider] terazosin, 2 mg, oral, Nightly epoprostenol, 120 mcg/hr, Last Rate: 120 mcg/hr (06/08/22717) fentaNYL, 0-400 mcg/hr, Last Rate: 100 mcg/hr (06/08/22899) impella purge solution infusion, 0-30 mL/hr, Last Rate: 16.6 mL/hr (06/08/22899) heparin, 0-33 Units/kg/hr, Last Rate: Stopped (06/07/22 1105) nitroglycerin, 0-400 mcg/min, Last Rate: Stopped (06/05/22 2100) norepinephrine, 0-2 mcg/kg/min (Dosing Weight), Last Rate: Stopped (06/08/22744) NxStage 4-potassium/2.5-calcium, 1,400 mL/hr, Last Rate: 1,000 mL/hr (06/08/22522) NxStage 4-potassium/2.5-calcium, 1,400 mL/hr, Last Rate: 1,000 mL/hr (06/08/22520) propofol, 0-50 mcg/kg/min, Last Rate: 20 mcg/kg/min (06/08/22899) sodium chloride 0.9%, 10 mL/hr, Last Rate: 10 mL/hr (06/08/22899) sodium chloride 0.9%, 10 mL/hr, Last Rate: 10 mL/hr (06/08/22899) sodium chloride 0.9%, 10 mL/hr sodium chloride 0.9%, 10 mL/hr, Last Rate: 10 mL/hr (06/08/22899) sodium chloride 0.9%, 6 mL/hr, Last Rate: 6 mL/hr (06/08/22899) sodium chloride 0.9%, 1,000 mL sodium chloride 0.9%, 3-12 mL/hr sodium chloride 0.9%, 3-12 mL/hr sodium chloride 0.9%, 3-12 mL/hr, Last Rate: Stopped (06/07/221900) Recent Labs Lab Units 06/08/224 06/07/22205306/07/22194106/07/221823 WBC K/cumm 10.1* -- 8.6 7.3 HEMOGLOBIN g/dL 8.3* 7.5* 4.3* 7.8* PLATELETS K/cumm 218 -- 233 194 Recent Labs Lab Units 06/08/22 0412 06/08/22 0028 06/07/22 2258 06/07/22 1708 06/06/222015 SODIUM mmol/L 135 135 134* 129* 132* POTASSIUM PLASMA mmol/L 4.0 3.5 3.4 See Comment 3.4 CHLORIDE mmol/L 99 96* 95* 87* 89* CO2 mmol/L 26 23 23 21* 25 BUN SERUM mg/dL 67* 69* 75* 80* 82* CREATININE mg/dL 7.65* 8.46* 8.92* 10.36* 10.45* CALCIUM mg/dL 8.2* 7.8* 8.1* 8.1* 7.5* MAGNESIUM mg/dL 2.3 2.2 2.2 2.2 2.1 PHOSPHORUS PLASMA mg/dL -- -- 4.7* 7.2* 6.6* Vonnie Cody MD publishing systems analyst Division of Nephology Consult 1: After 4 PM on , after 12 PM on Monday, and all day Monday, please contact on-call renal fellow at with questions. * Plan of Care - Joyce Begum, DEFLECTOR OPERATOR - 06/08/2022 3:33 AM CDT Patient on mechanical ventilation. Wean as tolerated. * Plan of Care - Low Cardoso MD - 06/07/2022 4:37 PM CDT Nephrology update note Patient not seen, off the floor for cardiac catheterization Patient reportedly had cardiopulmonary decompensation requiring intubation. Additionally had Impella placed and undergoing ECMO evaluation Trialysis catheter placed while in cardiac lab technician Given need for aggressive volume removal, will start CVVHDF Low Cardoso MD Nephrology Fellow Consult 2 Service Contact via [employer] Message After 4pm on , after 12pm on Monday, and all day Monday, page the on- call fellow at Cosigned by Ghazala Lepe MD at 06/07/2022 10:18 PM CDT Associated attestation - Ghazala Lepe MD - 06/07/2022 10:18 PM CDT I have seen and examined the patient on 06/07/2022. I agree with the findings and plan of care as documented in the nephrology fellows's note. Discussed in detail with fellow after today's events. Will transition to CVVHDF due to hemodynamic instability. Will evaluate daily for dialytic needs. Callfor any additional needs. Ghazala Lepe MD * Significant Event - Cj Yang MD - 06/07/2022 2:51 PM CDT Anesthesiology Significant Event Note Anesthesia Stat paged received, arrived in [facility], patient SpO2 40s, apneic, bag mask ventilation, hypotensive, patient undergoing cath procedure. Given acute cardiopulmonary decompensation, Dr. Mendosa, attending anesthesiologist, was called for assistance. 30mg prop and 30mg ree given, DL Mac 4, grade 1 view, 8.0 ETT placed, 26 @ the teeth, backed up to 24 @ teeth based on flouro, sat slow improved, however continued to be hypotensive. 1g CaCl and 50mEq Bicarb given. Additionally hypoxic on blood gas. Assisted IMAGE CONSULTANT team in getting levo and epi gtt started, titrated up to 0.1mcg/kg/min each. Impella placed by interventional cardiology team. CTS at bedside for ECMO evaluation. Cj Yang CA-3, Anesthesiology [facility] [employer] Cosigned by Cody Mendosa MD at 06/08/2022 2:17 PM CDT Associated attestation - Cody Mendosa MD - 06/08/2022 2:17 PM CDT Anesthesia STAT was called while patient in lab technician for complex PCI. Upon my arrival, he was beingmask ventilated with oral airway and two-person ventilation with SpO2 in 40-50s despite adequate manual ventilation. Patient was obtunded and unresponsive but still making some respiratory effort. Per report he had received 12.5 mcg of fentanyl and 1 mg of versed for sedation. We urgently intubatedthe patient using 30 mg of propofol and 30 mg of rocuronium; easy DL by resident, grade I VCV, 8.0 ETT placed initially at 26 cm with bilateral breath sounds, retracted to 24 cm per cardiology based on flouro appeared near right mainstem. He remained significantly hypoxic despite aggressive mechanical ventilation (AC/VC 34/500/15/100%) and SpO2 improved slightly to mid-80s. I recommended to startinhaled epoprostenol and inotropes and pressors while the cardiology team worked to complete his PCI and place a femoral Impella. In the interm, we recommended to consult CT surgery for possible ECMOevaluation, but was ultimately deemed to not be a candidate. Most likely patient went into worsening pulmonary edema related to cardiogenic shock and developed hypoxic and hypercarbic respiratory failure. We were unable to administer any diuretics as he was essentially anuric in chronic renal failure on peritoneal dialysis. Care was resumed by the cardiology team with plans to transfer to CCU andconsult renal for CVVHD to help with his volume overloaded state. Cody Mendosa MD Anesthesiology and Critical Care Medicine * Consults, Subsequent - Kellee Magallanes MD - 06/07/2022 12:14 PM CDT Endocrinology & Diabetes Progress Note Patient: Adelia Garvin Jr., 51 y.o. male (: 1970) Room: [facility]/NO* ( ) LOS: 3 Adelia Garvin Jr. is a 51 y.o. male with PMHx CHF (EF 50% in 2017), atrial fibrillation not on OAC, HTN/HLD, CAD s/p PCI, ESRD on PD, hyperparathyroidism presenting with weakness, N/V, diarrhea and chest pain. He is scheduled for C on 06/06. Diabetes service consulted for T1DM on insulin pump. Interval Events & Subjective He feels well, denies any CP or SOB He was evaluated by the surgery team to rule out cholecystitis , he will get a HIDA scan today , bcof his contrast allergy he received pred 50 mg Q6hrs for 3 doses He doesn't have any POD with him Diet: NPO Diet Recent Labs Lab Units 06/07/22 1127 06/07/22 0759 06/07/22 0417 06/06/22 2351 06/06/22 2018 06/06/22 2016 06/06/22 1753 06/06/22 1138 06/06/22 0806 06/06/22 0349 GLUCOSE mg/dL -- -- -- -- -- 112 -- -- -- -- POC GLUCOSE MONITOR mg/dL 179 247* 239* 170 123 -- 99 108 109 164 Interval Review of Systems Twelve point ROS reviewed and negative except as noted in HPI. All other systems negative. Vitals & Exam Temp: [36.6 ??C (97.9 ??F)-37 ??C (98.6 ??F)] 37 ??C (98.6 ??F) Pulse: [64-73] 73 BP: (144-161)/(52-69) 155/69 Resp: [10-49] 10 SpO2: [95 %-100 %] 96 % FiO2 (%): [60 %] 60 % I/O this shift: In: 129.4 [P.O.:30; I.V.:99.4] Out: - Physical Exam Gen : alert, appropriate, cooperative HENT : normocephalic, atraumatic, moist mucus membranes Eyes : conjunctiva clear, anicteric Pulm : non-labored Extr : Bilateral pitting edema Skin : turgor normal, no rashes/wounds/lesions Neuro : alert, speech fluent, comprehension intact, moving all extremities Psych : cooperative, appropriate affect & mood, good insight & judgment Data Medications, labs, imaging, and diagnostics independently reviewed in Epic and commented on below. Lab Results Component Value Date TSH 0.80 03/21/2017 Lab Results Component Value Date CHOL 149 06/04/2022 TRIG 165 (H) 06/04/2022 HDL 34 (L) 06/04/2022 LDLCALC 82 06/04/2022 Lab Results Component Value Date 25HYDROVITD 22.7 (L) 03/22/2017 Lab Results Component Value Date HGBA1C 7.8 (H) 06/04/2022 Assessment & Plan 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, with rodent exterminator use of insulin, complicated by ESRD on PD, CAD s/p PCI, CHF - HbA1c 7.4% - Uses Omnipod and Dexcom G6 at home, not currently on this- doesn't have the supplies - - On significantly higher basal rates on pump at night due to peritoneal dialysis -home settings: Basal rate 0330 >>1.7 0800 >> 0.8 2000 >> 5.8 ICR1:6.5 ISF1:25 [id number] TIA 4 Recommendations: - Lantus 33 units qAM - Humalog to 9 units TID AC - Resistant correctional Humalog TID AC, HS - continue on 6u lispro q4 while he gets peritoneal dialysis (8PM, 12AM and 4AM) - POC glucoses TID AC, HS, 2AM - Carb consistent diet; no juice or regular soda If NPO: Continue Lantus Hold mealtime Humalog Change correctional Humalog and POC glucoses to Q4hr Consider D5/0.45NS 100 mls/hr or D10 50 ml/shr if prolonged NPO (>12hrs) Discharge recommendations: Start Omnipod insulin pump at pre-hospital settings #Acute hypoxic respiratory failure - cardiology is trying to diurese him #NSTEMI #CAD s/p PCI 03/2017 (RCA) and 3 stent 12/07 (prox, mid, and distal RCA) #CHF - he is on a heparin drip , possibly needs a bypass surgery #ESRD on PD - he is at risk of hypoglycemia with ESRD and hyperglycemia while getting the dialysis from the dextrose in the dialyser ## Discharge Planning - Follow-up with home green house manager -- Kellee Magallanes MD Endocrinology, Metabolism, & Lipid Research Contact Info: New Consults: [phone]) General Endocrine (Non-Diabetes): [phone] (Check 'Treatment Team' assignment for Diabetes 1 vs 2 vs 3) Diabetes 1: Diabetes Fellow: [phone] Diabetes 2: Dora Delarosa, CHIEF AIRLINE RADIO OPERATOR: [phone] Diabetes 3: See Treatment Team Provider (or call Dora Delarosa, above) Diabetes After-Hours & Weekends: Diabetes Fellow Cosigned by Delmar Longo MD PhD at 06/07/2022 1:46 PM CDT Associated attestation - Delmar Longo MD PhD - 06/07/2022 1:46 PM CDT I have seen and examined the patient on 06/07/22. I agree with the findings and plan of care as documented in the resident's/fellow's note. * Pre-Sedation Documentation - Marcelina Pickard NP - 06/07/2022 10:26 AM CDT Sedation Plan ASA 3 - Severe systemic disease Risks, benefits, and alternatives discussed with patient. History of sedation/Anesthesia complications:No History of transfusion reaction: No Current Facility-Administered Medications Medication Dose Route Frequency Provider Last Rate Last Admin acetaminophen (TYLENOL) tablet 325 mg 325 mg oral Q4H PRN Dewey Parra MD albuterol HFA (PROVENTIL HFA,VENTOLIN HFA,PROAIR HFA) 90 mcg/actuation inhaler 2 puff 2 puff inhalation Q6H PRN (RT) Dewey Parra MD amLODIPine (NORVASC) tablet 10 mg 10 mg oral Daily Dewey Parra MD 10 mg at 06/07/22 0802 aspirin enteric coated tablet 81 mg 81 mg oral Daily Dewey Parra MD 81 mg at 06/07/22 0802 atorvastatin (LIPITOR) tablet 80 mg 80 mg oral Daily Dewey Parra MD 80 mg at 06/07/22 0801 calcitRIOL (ROCALTROL) capsule 0.25 mcg 0.25 mcg oral Daily Dewey Parra MD 0.25 mcg at 06/07/22 0801 calcium acetate(phosphat bind) (PHOSLO) capsule 667 mg 667 mg oral QID Dewey Parra MD 667 mg at 06/07/22 08 cloNIDine (CATAPRES) tablet 0.1 mg 0.1 mg oral BID Anurag Mortensen MD 0.1 mg at 06/07/22 0802 clopidogreL (PLAVIX) tablet 75 mg 75 mg oral Daily Dewey Parra MD 75 mg at 06/07/22 0801 dextrose gel in packet 15 g 15 g oral Q15 Min PRN Dewey Parra MD Or dextrose (D10W) 10% bolus 250 mL 250 mL intravenous Q15 Min PRN Dewey Parra MD docusate sodium (COLACE) capsule 100 mg 100 mg oral Daily Dewey Parra MD 100 mg at 06/07/22 0802 ergocalciferol (VITAMIN D) capsule 50,000 Units 50,000 Units oral Weekly Dewey Parra MD 50,000 Units at 06/06/22 0820 ezetimibe (ZETIA) tablet 10 mg 10 mg oral Daily Dewey Parra MD 10 mg at 06/07/22 0802 fluticasone propionate (FLONASE) 50 mcg/actuation nasal spray 2 spray 2 spray each nostril BID PRN Dewey Parra MD glucagon injection 1 mg 1 mg intramuscular Q30 Min PRN Dewey Parra MD heparin 1,000 unit/mL injection 2,000 Units 2,000 Units intravenous Q6H PRN Dewey Parra MD Or heparin 1,000 unit/mL injection 3,000 Units 3,000 Units intravenous Q6H PRN Dewey Parra MD 3,000 Units at 06/05/22 2100 heparin in 0.9% sodium chloride 25,000 unit/250 mL infusion (premix) 0-33 Units/kg/hr intravenous Titrated Dewey Parra MD 19.88 mL/hr at 06/07/22 0900 14 Units/kg/hr at 06/07/22 0900 hydrALAZINE (APRESOLINE) tablet 100 mg 100 mg oral Q8H Anurag Mortensen MD insulin glargine (LANTUS, SEMGLEE) 100 unit/mL injection 33 Units 33 Units subcutaneous QAM Dewey Parra MD 33 Units at 06/07/22 0803 insulin lispro (HumaLOG, ADMELOG) 100 unit/mL injection 0-10 Units 0-10 Units subcutaneous TID withmeals Dewey Parra MD 4 Units at 06/07/22 0802 insulin lispro (HumaLOG, ADMELOG) 100 unit/mL injection 6 Units 0.04 Units/kg subcutaneous TID Dewey Parra MD 6 Units at 06/07/22 0417 insulin lispro (HumaLOG, ADMELOG) 100 unit/mL injection 9 Units 9 Units subcutaneous TID with Veronica Pandey MD 9 Units at 06/07/22 0803 isosorbide mononitrate ER (IMDUR) extended release tablet 30 mg 30 mg oral Daily Dewey Parra MD 30 mg at 06/07/22 0801 lidocaine (LIDODERM) 5 % patch 1 patch 1 patch transdermal Daily PRN Dewey Parra MD meropenem (MERREM) 500 mg/105 mL in sodium chloride 0.9% (premix) 500 mg 500 mg intravenous Q24H Dewey Parra MD 500 mg at 06/06/22 1651 metoprolol tartrate (LOPRESSOR) immediate release tablet 12.5 mg 12.5 mg oral Q6H Anurag Mortensen MD nitroglycerin in dextrose 5% 50 mg/250 mL (200 mcg/mL) infusion (premix) 0-400 mcg/min intravenous Titrated Dewey Parra MD Stopped at 06/05/22 2100 nystatin 100,000 unit/mL oral suspension 500,000 Units 500,000 Units swish & spit QID Low Cardoso MD 500,000 Units at 06/07/22 0802 ondansetron ODT (ZOFRAN-ODT) disintegrating tablet 4 mg 4 mg oral Q6H PRN Dewey Parra MD Or ondansetron (ZOFRAN) injection 4 mg 4 mg intravenous Q6H PRN Dewey Parra MD pantoprazole DR (PROTONIX) extended release tablet 40 mg 40 mg oral Daily Dewey Parra MD 40 mg at1 0802 phenoL (CHLORASEPTIC) 1.4 % oral spray 1 spray 1 spray mouth/throat Q2H PRN Dewey Parra MD polyethylene glycol (MIRALAX) packet 17 g 17 g oral Daily Dewey Parra MD 17 g at 06/07/22 0802 ramelteon (ROZEREM) tablet 8 mg 8 mg oral Nightly PRN Dewey Parra MD ranolazine ER (RANEXA) extended release tablet 500 mg 500 mg oral BID Dewey Parra MD 500 mg at 06/07/22 0801 terazosin (HYTRIN) capsule 2 mg 2 mg oral Nightly Dewey Parra MD 2 mg at 06/06/22 2019 Laboratory review: Chemistry BMP Lab Results Component Value Date GLUCOSE 247 (H) 06/07/2022 GLUCOSE 112 06/06/2022 CALCIUM 7.5 (L) 06/06/2022 SODIUM 132 (L) 06/06/2022 POTASSIUM 3.4 06/06/2022 CO2 25 06/06/2022 CO2 23 06/05/2022 BUNSER 82 (H) 06/06/2022 CREATININE 10.45 (H) 06/06/2022 , CBC: Lab Results Component Value Date WBC 11.6 (H) 06/06/2022 RBC 2.99 (L) 06/06/2022 HGB 9.3 (L) 06/06/2022 HCT 26.4 (L) 06/06/2022 HCT 30.0 (L) 06/05/2022 MCV 88.3 06/06/2022 MCH 31.1 06/06/2022 MCHC 35.2 06/06/2022 RDWCV 13.1 06/06/2022 RDWSD 42.2 06/06/2022 MPV 11.1 06/06/2022 NRBCABS 0.00 06/06/2022 , and Coags: Lab Results Component Value Date PT 10.8 06/05/2022 APTT 57 (H) 06/07/2022 INR 1.0 06/05/2022 Current meds/Labs/Test Results that may affect sedation reviewed: Yes Last PO Intake: NPO since 06/07/22 HEENT Exam: negative Sedation Plan: Moderate * Plan of Care - Sachi Starr RN - 06/07/2022 6:29 AM CDT Clinical goals for the shift: monitor VS, improve oxygenation status, go to lab technician for LHC today,possibly do another scan for gallbladder, keep comfortable, decrease anxiety * Plan of Care - Eugene Tillman RRT - 06/07/2022 3:40 AM CDT NPPV Situation: The patient was ordered on NPPV for Respiratory Distress. due to Hypercarbia. Patient was placed on their hospital provided NPPV machine. Settings: NPPV Rate Set: 14 breaths/min VT (setting): 500 ml Min-P (setting): 6 cmH2O Max-P (setting): 14 cmH2O Insp Time (sec): 0.85 sec PEEP/CPAP/EPAP Set (cmH2O): 5 cm H20 FiO2 (%): 60 %. Tolerance: The patient tolerated the NPPV without issue. Plan: Proceed as ordered and continue to monitor the patient. * Provider Query - Dewey Parra MD - 06/06/2022 9:30 PM CDT Specify the significance of the abnormal BMI (body mass index) and document in the medical record and on the form below. Elevated BMI __x_Morbid (severe) Obesity ___Other, specify below ___Clinically unable to determine Additional Provider Response: Clinical Indicators/Treatments: Nursing Admission Assessment: BMI 44.91 BMI definitions per www.NHLBI.nih.gov BMI Weight Status <18.5 Underweight 18.5 to 24.9 Normal/Healthy 25 to 29.9 Overweight 30 to 39.9 Obesity >40 Extreme Obesity (Morbid) Use of terms such as likely, suspected, possible, or probable (associated with a specific diagnosisthat is being evaluated, monitored, or treated as if it exists) are acceptable and can be coded in the inpatient setting when documented at the time of discharge. This documentation will become part of the patient???s medical record. Thank you, SIL Avilez, RN, CCDS Email: [email or web address] * Consults, Subsequent - Low Cardoso MD - 06/06/2022 4:27 PM CDT NEPHROLOGY CONSULT SUBSEQUENT VISIT INTERVAL HISTORY: - pt seen at bedside - no acute complaints - overnight UF 2.2L - off NIPPV, on NC REVIEW OF SYSTEMS: As per HPI. All other systems are negative. OBJECTIVE Vitals: 06/06/22 1245 06/06/22 1247 06/06/22 1300 06/06/22 1400 BP: 136/53 138/56 BP Location: Left arm Left arm Patient Position: HOB 30 degrees HOB 30 degrees Pulse: 66 64 63 62 Resp: 15 15 17 19 Temp: 37.7 ??C (99.9 ??F) 37.7 ??C (99.9 ??F) 37.7 ??C (99.9 ??F) 37.7 ??C (99.9 ??F) TempSrc: Bladder Bladder SpO2: 91% 91% 94% 90% Weight: Height: PHYSICAL EXAM: Physical Exam Vitals reviewed. Constitutional: Appearance: He is not ill-appearing. HENT: Head: Normocephalic and atraumatic. Eyes: General: No scleral icterus. Cardiovascular: Rate and Rhythm: Normal rate and regular rhythm. Pulmonary: Effort: Pulmonary effort is normal. No respiratory distress. Breath sounds: Rales present. Abdominal: General: There is no distension. Palpations: Abdomen is soft. Tenderness: There is no guarding or rebound. Musculoskeletal: Cervical back: Normal range of motion. Right lower leg: Edema present. Left lower leg: Edema present. Skin: General: Skin is warm and dry. Neurological: Mental Status: He is alert and oriented to person, place, and time. Psychiatric: Mood and Affect: Mood normal. Behavior: Behavior normal. Date 06/05/22699 - 06/06/2265806/06/22699 - 06/07/22 06 Shift 24 Hour Total 24 Hour Total INTAKE P.O. 60 60 450 450 I.V.(mL/kg) 443.1(3.1) 443.1(3.1) 147.7(1) 147.7(1) Other 47024 52889 34535 IV Piggyback 105 105 Shift Total(mL/kg) 64490(84.2) 59073.1(86.1) 36903.1(170.3) 597.7(4.2) 597.7(4.2) OUTPUT Urine(mL/kg/hr) 0(0) 6(0) 6(0) 0 0 Other 59976 43833 62428 Stool 0 0 Shift Total(mL/kg) 79451(87.7) 75209(98.3) 61547(186) 0(0) 0(0) NET -498 -1729.9 -2227.9 597.7 597.7 Weight (kg) 142 142 142 142 142 142 LABORATORY DATA: Recent Labs Lab Units 06/05/22204606/05/22 1554 06/04/22 2252 WBC K/cumm 9.1 10.7* 7.7 HEMOGLOBIN g/dL 9.3* 10.3* 9.5* PLATELETS K/cumm 201 238 195 Recent Labs Lab Units 06/05/22204606/05/224 06/05/22 1522 06/05/22 1517 06/04/22 2252 SODIUM mmol/L 132* 132* 127* -- 129* POTASSIUM PLASMA mmol/L 3.6 4.1 3.9 -- 4.0 CHLORIDE mmol/L 90* 87* 88* -- 88* CO2 mmol/L 25 26 19* -- 24 CO2 POC -- -- -- < > -- BUN SERUM mg/dL 84* 81* 79* -- 82* CREATININE mg/dL 9.77* 9.08* 9.13* -- 8.95* ALBUMIN g/dL 3.4* -- -- -- 3.6 CALCIUM mg/dL 7.8* 8.1* 8.2* -- 8.6 MAGNESIUM mg/dL 1.9 -- 2.1 -- -- PHOSPHORUS PLASMA mg/dL 6.5* -- -- -- -- < > = values in this interval not displayed. Lab Results Component Value Date CALCIUM 7.8 (L) 06/05/2022 PHOS 6.5 (H) 06/05/2022 Lab Results Component Value Date IRON 22 (L) 03/21/2017 TIBC 185 (L) 03/21/2017 TRANSFERSAT 12 (L) 03/21/2017 FERRITIN 210 03/21/2017 CURRENT MEDICATIONS: amLODIPine, 10 mg, oral, Daily aspirin, 81 mg, oral, Daily atorvastatin, 80 mg, oral, Daily calcitRIOL, 0.25 mcg, oral, Daily calcium acetate(phosphat bind), 667 mg, oral, QID cloNIDine, 0.1 mg, oral, BID clopidogreL, 75 mg, oral, Daily [START ON 06/07/2022] diphenhydrAMINE, 50 mg, oral, Once docusate sodium, 100 mg, oral, Daily ergocalciferol, 50,000 Units, oral, Weekly ezetimibe, 10 mg, oral, Daily gentamicin, , topical, Daily hydrALAZINE, 100 mg, oral, TID insulin glargine, 33 Units, subcutaneous, QAM insulin lispro, 0-10 Units, subcutaneous, TID with meals insulin lispro, 0.04 Units/kg, subcutaneous, TID insulin lispro, 9 Units, subcutaneous, TID with meals isosorbide mononitrate ER, 30 mg, oral, Daily meropenem, 500 mg, intravenous, Q24H metoprolol tartrate, 12.5 mg, oral, QID nystatin, 500,000 Units, swish & spit, QID pantoprazole DR, 40 mg, oral, Daily polyethylene glycol, 17 g, oral, Daily [START ON 06/07/2022] predniSONE, 50 mg, oral, Q6H ranolazine ER, 500 mg, oral, BID terazosin, 2 mg, oral, Nightly peritoneal fluid with or without additives for CCPD, peritoneal fluid with or without additives for CCPD, peritoneal fluid with or without additives for CCPD, peritoneal fluid with or without additives for CCPD, heparin, 0-33 Units/kg/hr, Last Rate: 13 Units/kg/hr (06/06/22 1400) nitroglycerin, 0-400 mcg/min, Last Rate: Stopped (06/05/22 2100) ASSESSMENT AND RECOMMENDATIONS ESRD on PD - Schedule: nightly - last OP HD: 06/03/2022 - Access: Lt LQ PD catheter - plan for PD tonight - monitor for intra-dialytic hypotension - monitor daily weights and adjust UF accordingly - dose medication for CrCl < 15ml/min - will start oral nystatin swish/spit for fungal prophylaxis for PD (in the setting of IV abx) - overnight UF 2.2L - given recent pulmonary edema, will attempt to increase UF with peritoneal dialysis. - pending results of HIDA scan tomorrow given concern for cholecystitis. If PTC is pursued, this will likely interrupt his peritoneal dialysis. Will check a cell count tomorrow. Hypertension - Achieves BP control: yes - adjust UF accordingly Hyperkalemia - renal diet. Monitor daily. Secondary hyperparathyroidism of renal origin - Monitor Ca and Phos daily. Continue calcitriol at this time. Restart phos binder (phos-Lo) once taking PO. Anemia of ESRD - CORRINE and IV iron per outpatient unit, resume if prolonged hospital stay - transfuse for hgb < 7.0 Coronary artery disease - Management per Cardiology service Low Cardoso MD Nephrology Fellow Consult 2 Service Contact via [employer] Message After 4pm on , after 12pm on Monday, and all day Monday, page the on- call fellow at Cosigned by Ghazala Lepe MD at 06/06/2022 9:06 PM CDT Associated attestation - Ghazala Lepe MD - 06/06/2022 9:06 PM CDT I have seen and examined the patient on 06/06/2022. I agree with the findings and plan of care as documented in the nephrology fellows's note. Ghazala Lepe MD * Consults, Subsequent - Kellee Magallanes MD - 06/06/2022 12:23 PM CDT Endocrinology & Diabetes Progress Note Patient: Adelia Garvin Jr., 51 y.o. male (: 1970) Room: [place] [address]/[place] [address] ( ) LOS: 2 Adelia Garvin Jr. is a 51 y.o. male with PMHx CHF (EF 50% in 2017), atrial fibrillation not on OAC, HTN/HLD, CAD s/p PCI, ESRD on PD, hyperparathyroidism presenting with weakness, N/V, diarrhea and chest pain. He is scheduled for LHC on 06/06. Diabetes service consulted for T1DM on insulin pump. Interval Events & Subjective He feels well, denies any CP or SOB No nausea or vomiting He was told that he will get a bypass surgery He doesn't have any POD with him TDD 70 Diet: NPO Diet Recent Labs Lab Units 06/06/22 1138 06/06/22 0806 06/06/22 0349 06/06/22 0001 06/05/22 2113 06/05/22 2047 06/05/22 1707 06/05/22 1554 06/05/22 1546 06/05/22 1522 GLUCOSE mg/dL -- -- -- -- -- 180 -- 276* -- 294* POC GLUCOSE MONITOR mg/dL 108 109 164 192 195 -- 275* -- 279* -- POC GLUCOSE mg/dL -- -- -- -- -- -- -- -- -- 287* Interval Review of Systems Twelve point ROS reviewed and negative except as noted in HPI. All other systems negative. Vitals & Exam Temp: [37.1 ??C (98.8 ??F)-37.8 ??C (100 ??F)] 37.7 ??C (99.9 ??F) Pulse: [59-69] 62 BP: (138-152)/(52-122) 142/52 Resp: [10-21] 20 SpO2: [85 %-100 %] 94 % FiO2 (%): [60 %-100 %] 60 % I/O this shift: In: 410.8 [P.O.:300; I.V.:110.8] Out: 0 Physical Exam Gen : alert, appropriate, cooperative HENT : normocephalic, atraumatic, moist mucus membranes Eyes : conjunctiva clear, anicteric Pulm : non-labored Extr : Bilateral pitting edema Skin : turgor normal, no rashes/wounds/lesions Neuro : alert, speech fluent, comprehension intact, moving all extremities Psych : cooperative, appropriate affect & mood, good insight & judgment Data Medications, labs, imaging, and diagnostics independently reviewed in Epic and commented on below. Lab Results Component Value Date TSH 0.80 03/21/2017 Lab Results Component Value Date CHOL 149 06/04/2022 TRIG 165 (H) 06/04/2022 HDL 34 (L) 06/04/2022 LDLCALC 82 06/04/2022 Lab Results Component Value Date 25HYDROVITD 22.7 (L) 03/22/2017 Lab Results Component Value Date HGBA1C 7.8 (H) 06/04/2022 Assessment & Plan 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, with prison use of insulin, complicated by ESRD on PD, CAD s/p PCI, CHF - HbA1c 7.4% - Uses Omnipod and Dexcom G6 at home, not currently on this- doesn't have the supplies - - On significantly higher basal rates on pump at night due to peritoneal dialysis -home settings: Basal rate 0330 >>1.7 0800 >> 0.8 2000 >> 5.8 ICR1:6.5 ISF1:25 [id number] TIA 4 Recommendations: - Lantus 33 units qAM - please increase Humalog to 9 units TID AC - Resistant correctional Humalog TID AC, HS - continue on 6u lispro q4 while he gets peritoneal dialysis (8PM, 12AM and 4AM) - POC glucoses TID AC, HS, 2AM - Carb consistent diet; no juice or regular soda If NPO: Continue Lantus Hold mealtime Humalog Change correctional Humalog and POC glucoses to Q4hr Consider D5/0.45NS 100 mls/hr or D10 50 ml/shr if prolonged NPO (>12hrs) Discharge recommendations: Start Omnipod insulin pump at pre-hospital settings ## Discharge Planning - Follow-up with home green house manager -- Kellee Magallanes MD Endocrinology, Metabolism, & Lipid Research Contact Info: New Consults: [phone]) General Endocrine (Non-Diabetes): [phone] (Check 'Treatment Team' assignment for Diabetes 1 vs 2 vs 3) Diabetes 1: Diabetes Fellow: [phone] Diabetes 2: Dora Delarosa, CHIEF AIRLINE RADIO OPERATOR: [phone] Diabetes 3: See Treatment Team Provider (or call Dora Delarosa, above) Diabetes After-Hours & Weekends: Diabetes Fellow Cosigned by Delmar Longo MD PhD at 06/06/2022 3:15 PM CDT Associated attestation - Delmar Longo MD PhD - 06/06/2022 3:15 PM CDT I have seen and examined the patient on 06/06/22. I agree with the findings and plan of care as documented in the resident's/fellow's note. * Plan of Care - Margaret Carreno RN - 06/06/2022 9:24 AM CDT Problem: Health Behavior: Goal: Understanding of discharge needs will improve Outcome: Not Progressing Problem: Lack of Knowledge: Goal: Ability to state ways to decrease the risk of falls will improve Outcome: Not Progressing Problem: Safety: Goal: Will remain free from falls Outcome: Not Progressing Goal: Will remain free from injury from falls Outcome: Not Progressing Goal: Will remain free from falls and injury in home environment Outcome: Not Progressing Problem: Lack of Knowledge: Goal: Knowledge of disease or condition and prescribed therapeutic regimen will improve Outcome: Not Progressing Problem: Coping: Goal: Level of anxiety will decrease Outcome: Not Progressing Problem: Sensory: Goal: Pain level will decrease Outcome: Not Progressing Problem: Lack of Knowledge: Goal: Ability to describe self-care measures that may prevent or decrease complications will improve Outcome: Not Progressing Goal: Knowledge of disease or condition will improve Outcome: Not Progressing Goal: Knowledge of the prescribed therapeutic regimen will improve Outcome: Not Progressing Goal: Knowledge of prevention and discharge planning will improve Outcome: Not Progressing Problem: Coping: Goal: Ability to adjust to condition or change in health will improve Outcome: Not Progressing Problem: Fluid Volume: Goal: Ability to maintain a balanced intake and output will improve Outcome: Not Progressing Problem: Health Behavior: Goal: Ability to identify and alter actions that are detrimental to health will improve Outcome: Not Progressing Goal: Ability to identify and utilize available resources and services will improve Outcome: Not Progressing Goal: Ability to manage health-related needs will improve Outcome: Not Progressing Problem: Nutritional: Goal: Maintenance of adequate nutrition will improve Outcome: Not Progressing Goal: Progress toward achieving an optimal weight will improve Outcome: Not Progressing Problem: Physical Regulation: Goal: Complications related to the disease process, condition or treatment will be avoided or minimized Outcome: Not Progressing Goal: Diagnostic test results will improve Outcome: Not Progressing Problem: Skin Integrity: Goal: Risk for impaired skin integrity will decrease Outcome: Not Progressing Goals: Clinical Goals for the Shift: Monitor VS and keep SBP 140-160, analytical lab analyst for [facility] Summary: * Plan of Care - Karuna Spencer LCSW - 06/06/2022 8:53 AM CDT SW received consult for high risk for readmission. Pt not currently scoring high risk. SW also consulted for Advanced Care Planning. Met with pt at bedside. Pt declined to do an Advanced Directive stating he has already talked to his brother about his wishes and that we should call his brother Ronny Garvin [phone] or [phone] (pt not sure which is the correct number). Provided and discussed forms in case pt changed his mind. Pt stated intent to request SW return if he decides to complete. Asked pt about other needs. Pt stated that money is sometimes tight and that he has looked into utility assistance programs but has not been successful so far. Pt stated that he called about LIHEAP once but they were out of funding but he hasn't followed-up on other options at this time. Provided and discussed utility assistance and LIHEAP assistance programs for [facility]. Pt denied other needs stating he has good support from his brother and son. SÁNCHEZ Virk, EDUCATIONAL ASSISTANT TEACHER * Plan of Care - Manisha Wogn RRT - 06/06/2022 5:14 AM CDT NPPV Situation: The patient was ordered on NPPV for Respiratory Distress. due to Hypoxia. Patient was placed on their hospital provided NPPV machine. Settings: NPPV Rate Set: 14 breaths/min VT (setting): 500 ml Min-P (setting): 8 cmH2O Max-P (setting): 14 cmH2O Insp Time (sec): 0.85 sec PEEP/CPAP/EPAP Set (cmH2O): 7 cm H20 FiO2 (%): (S) 70 %. Tolerance: The patient tolerated the NPPV without issue. Plan: Proceed as ordered and continue to monitor the patient. * Plan of Care - Kerry Henley RN - 06/05/2022 6:43 PM CDT Goals: Clinical Goals for the Shift: Monitor VSS, maintain rest/ pain/ comfort/ safety measures, monitor I/O's, serial labs, monitor blood glucose level and manage, nguyen catheter placed, educate and updatept and family, notify pertinent c/s's, additional IV access, nitro gtt, heparin gtt, serial aPTT's,diagnostic exams as ordered, wean oxygen as tolerated, maintain SBP less than or equal to 160. Summary: Pt transferred to [address] MICU at 1600, heparin gtt infusing, nitro gtt started for SBP goal 140-160, SSI given for high blood glucose levels, pt arrived on 100% FiO2 on bipap and remains at such, family at bedside, educated and updated pt and family, serial labs drawn, heparin gtt not therapeutic, serial aPTT's, nguyen catheter placed to monitor strict I/O's, blood cultures drawn, new PIV placed, US RUQ completed, CXR, pt developing low grade temp, PD to be performed tonight with culturesto be sent, pt oriented to unit and call light at side, XR ABD ordered, ABG to be obtained. Blood pressure 119/95, pulse 64, temperature 38.3 ??C (100.9 ??F), resp. rate 22, height 177.8 cm (5' 10 ), weight (!) 142 kg (313 lb), SpO2 92 %. Problem: Health Behavior: Goal: Understanding of discharge needs will improve 06/05/20221842 by Kerry Henley RN Outcome: Progressing 06/05/20221813 by Kerry Henley RN Outcome: Progressing Problem: Lack of Knowledge: Goal: Ability to state ways to decrease the risk of falls will improve 06/05/20221842 by Kerry Henley RN Outcome: Progressing 06/05/20221813 by Kerry Henley RN Outcome: Progressing Problem: Safety: Goal: Will remain free from falls 06/05/20221842 by Kerry Henley, LUAN Outcome: Progressing 06/05/20221813 by Kerry Henley, LUAN Outcome: Progressing Goal: Will remain free from injury from falls 06/05/20221842 by Kerry Henley, RN Outcome: Progressing 06/05/20221813 by Kerry Henley, RN Outcome: Progressing Goal: Will remain free from falls and injury in home environment 06/05/20221842 by Kerry Henley, LUAN Outcome: Progressing 06/05/20221813 by Kerry Henley, RN Outcome: Progressing Problem: Lack of Knowledge: Goal: Knowledge of disease or condition and prescribed therapeutic regimen will improve 06/05/20221842 by Kerry Henley, LUAN Outcome: Progressing 06/05/20221813 by Kerry Henley, RN Outcome: Progressing Problem: Coping: Goal: Level of anxiety will decrease 06/05/2022 1843 by Kerry Henley, RN Outcome: Progressing 06/05/2022 181 by Kerry Henley, RN Outcome: Progressing Problem: Sensory: Goal: Pain level will decrease 06/05/2022 1843 by Kerry Henley, RN Outcome: Progressing 06/05/2022 181 by Kerry Henley, RN Outcome: Progressing Problem: Lack of Knowledge: Goal: Ability to describe self-care measures that may prevent or decrease complications will improve 06/05/2022 1843 by Kerry Henley, RN Outcome: Progressing 06/05/2022 181 by Kerry Henley RN Outcome: Progressing Goal: Knowledge of disease or condition will improve 06/05/2022 1843 by Kerry Henley, RN Outcome: Progressing 06/05/2022 181 by Kerry Henley, RN Outcome: Progressing Goal: Knowledge of the prescribed therapeutic regimen will improve 06/05/2022 1843 by Kerry Henley, RN Outcome: Progressing 06/05/2022 181 by Kerry Henley, RN Outcome: Progressing Goal: Knowledge of prevention and discharge planning will improve 06/05/2022 1843 by Kerry Henley, RN Outcome: Progressing 06/05/2022 181 by Kerry Henley, RN Outcome: Progressing Problem: Coping: Goal: Ability to adjust to condition or change in health will improve 06/05/2022 1843 by Kerry Henley, RN Outcome: Progressing 06/05/2022 181 by Kerry Henley, RN Outcome: Progressing Problem: Fluid Volume: Goal: Ability to maintain a balanced intake and output will improve 06/05/2022 1843 by Kerry Henley, RN Outcome: Progressing 06/05/2022 181 by Kerry Henley, RN Outcome: Not Progressing Problem: Health Behavior: Goal: Ability to identify and alter actions that are detrimental to health will improve 06/05/2022 1843 by Kerry Henley, RN Outcome: Progressing 06/05/2022 181 by Kerry Henley RN Outcome: Progressing Goal: Ability to identify and utilize available resources and services will improve 06/05/2022 184 by Kerry Henley, LUAN Outcome: Progressing 06/05/20221813 by Kerry Henley RN Outcome: Progressing Goal: Ability to manage health-related needs will improve 06/05/2022 184 by Kerry Henley RN Outcome: Progressing 06/05/20221813 by Kerry Henley RN Outcome: Progressing Problem: Nutritional: Goal: Maintenance of adequate nutrition will improve 06/05/2022 184 by Kerry Henley, LUAN Outcome: Progressing 06/05/20221813 by Kerry Henley RN Outcome: Progressing Goal: Progress toward achieving an optimal weight will improve 06/05/2022 184 by Kerry Henley RN Outcome: Progressing 06/05/20221813 by Kerry Henley RN Outcome: Not Progressing Problem: Physical Regulation: Goal: Complications related to the disease process, condition or treatment will be avoided or minimized 06/05/2022 184 by Kerry Henley RN Outcome: Progressing 06/05/20221813 by Kerry Henley, LUAN Outcome: Progressing Goal: Diagnostic test results will improve 06/05/20221842 by Kerry Henley RN Outcome: Progressing 06/05/20221813 by Kerry Henley RN Outcome: Progressing Problem: Skin Integrity: Goal: Risk for impaired skin integrity will decrease 06/05/2022 184 by Kerry Henley RN Outcome: Progressing 06/05/20221813 by Kerry Henley RN Outcome: Progressing * Significant Event - Sinan Fuentes MD - 06/05/2022 3:57 PM CDT ACT NOTE: Covering team called to bedside for complaints of substernal chest pressure and shortness of breaththat was acutely worsening. This MD was notified by covering team and presented to bedside to evaluate patient. Patient was satting mid 80s on non rebreather from previously mid 70s on nasal cannula. Appeared uncomfortable, tachypneic and complaining of substernal chest pain. He received 2 doses of sublingual nitro prior to arrival. An ACT was called and he was promptly placed on BiPAP with return of oxygen saturation to mid 90s. Chest x- ray was performed which showed pulmonary edema. Labs including BMP, troponins were collected per action nurse. EKG was performed at bedside. It was a low moris lity EKG but did not show any gross ischemic changes, and looked largely unchanged from prior on comparison. Point of care ABG showed significant hypoxia: 7.37/37/53. Patient was given 120 mg IV Lasix for concern of volume overload in the setting of decreased renal function/possible new onset heart failure. ICU triage was contacted and patient was taken to 8310 for in-person sign-out was given to ICU team. * Plan of Care - Nona Fernandez RN - 06/05/2022 10:56 AM CDT Problem: Health Behavior: Goal: Understanding of discharge needs will improve Outcome: Progressing Problem: Lack of Knowledge: Goal: Ability to state ways to decrease the risk of falls will improve Outcome: Progressing Problem: Safety: Goal: Will remain free from falls Outcome: Progressing Goal: Will remain free from injury from falls Outcome: Progressing Goal: Will remain free from falls and injury in home environment Outcome: Progressing Problem: Lack of Knowledge: Goal: Knowledge of disease or condition and prescribed therapeutic regimen will improve Outcome: Progressing Problem: Coping: Goal: Level of anxiety will decrease Outcome: Progressing Problem: Sensory: Goal: Pain level will decrease Outcome: Progressing Problem: Lack of Knowledge: Goal: Ability to describe self-care measures that may prevent or decrease complications will improve Outcome: Progressing Goal: Knowledge of disease or condition will improve Outcome: Progressing Goal: Knowledge of the prescribed therapeutic regimen will improve Outcome: Progressing Goal: Knowledge of prevention and discharge planning will improve Outcome: Progressing Problem: Coping: Goal: Ability to adjust to condition or change in health will improve Outcome: Progressing Problem: Fluid Volume: Goal: Ability to maintain a balanced intake and output will improve Outcome: Progressing Problem: Health Behavior: Goal: Ability to identify and alter actions that are detrimental to health will improve Outcome: Progressing Goal: Ability to identify and utilize available resources and services will improve Outcome: Progressing Goal: Ability to manage health-related needs will improve Outcome: Progressing Problem: Nutritional: Goal: Maintenance of adequate nutrition will improve Outcome: Progressing Goal: Progress toward achieving an optimal weight will improve Outcome: Progressing Problem: Physical Regulation: Goal: Complications related to the disease process, condition or treatment will be avoided or minimized Outcome: Progressing Goal: Diagnostic test results will improve Outcome: Progressing Problem: Skin Integrity: Goal: Risk for impaired skin integrity will decrease Outcome: Progressing Goals: Clinical Goals for the Shift: pt will remain HDS Summary: pt will remain HDS * Plan of Care - Kristie Banegas RN - 06/05/2022 12:02 AM CDT Goals: Clinical Goals for the Shift: Pt will remain hds Summary: Patient participating in care plan goals. Patient verbalized education and is progressing towards goals. Problem: Health Behavior: Goal: Understanding of discharge needs will improve Outcome: Progressing Problem: Lack of Knowledge: Goal: Ability to state ways to decrease the risk of falls will improve Outcome: Progressing Problem: Safety: Goal: Will remain free from falls Outcome: Progressing Goal: Will remain free from injury from falls Outcome: Progressing Goal: Will remain free from falls and injury in home environment Outcome: Progressing Problem: Lack of Knowledge: Goal: Knowledge of disease or condition and prescribed therapeutic regimen will improve Outcome: Progressing Problem: Coping: Goal: Level of anxiety will decrease Outcome: Progressing Problem: Sensory: Goal: Pain level will decrease Outcome: Progressing Problem: Lack of Knowledge: Goal: Ability to describe self-care measures that may prevent or decrease complications will improve Outcome: Progressing Goal: Knowledge of disease or condition will improve Outcome: Progressing Goal: Knowledge of the prescribed therapeutic regimen will improve Outcome: Progressing Goal: Knowledge of prevention and discharge planning will improve Outcome: Progressing Problem: Coping: Goal: Ability to adjust to condition or change in health will improve Outcome: Progressing Problem: Fluid Volume: Goal: Ability to maintain a balanced intake and output will improve Outcome: Progressing Problem: Health Behavior: Goal: Ability to identify and alter actions that are detrimental to health will improve Outcome: Progressing Goal: Ability to identify and utilize available resources and services will improve Outcome: Progressing Goal: Ability to manage health-related needs will improve Outcome: Progressing Problem: Nutritional: Goal: Maintenance of adequate nutrition will improve Outcome: Progressing Goal: Progress toward achieving an optimal weight will improve Outcome: Progressing Problem: Physical Regulation: Goal: Complications related to the disease process, condition or treatment will be avoided or minimized Outcome: Progressing Goal: Diagnostic test results will improve Outcome: Progressing Problem: Skin Integrity: Goal: Risk for impaired skin integrity will decrease Outcome: Progressing documented in this encounter Plan of Treatment Pending Results Name Type Priority Associated Diagnoses Date /Time Infection Prevention MRSA Only (Staphylococcus aureus) Culture Nasal Microbiology Routine 06/05/2022 8:47 PM CDT Pneumonia PCR with aerobic culture and Gram stain Tracheal aspirate Microbiology Routine 06/18/2022 1:32 PM CDT Type and screen Lab STAT 8:28 AM CDT Scheduled Orders Name Type Priority Associated Diagnoses Orde r Schedule Infection Prevention MRSA Only (Staphylococcus aureus) Culture Nasal Microbiology Routine Once for 1 Occurrences starting 06/05/2022 until 06/05/2022 Pneumonia PCR with aerobic culture and Gram stain Tracheal aspirate Microbiology Routine Once for 1 Occurrences starting 06/17/2022 until 06/17/2022 Type and screen Lab STAT STAT for 1 Occurrences starting 06/20/2022 until 06/20/2022 documented as of this encounter Procedures Procedure Name Priority Date/Time Associated Diagnosis Comments POCT GLUCOSE DEVICE Routine 06/29/2022 11:51 AM SENIOR ART DIRECTOR POCT GLUCOSE DEVICE Routine 06/29/2022 7 :43 AM SENIOR ART DIRECTOR POCT GLUCOSE DEVICE Routine 06/28/2022 8 :08 PM SENIOR ART DIRECTOR COVID-19 CORONAVIRUS RNA Routine 06/28/2022 3:46 PM SENIOR ART DIRECTOR POCT GLUCOSE DEVICE Routine 06/28/2022 3 :33 PM SENIOR ART DIRECTOR POCT GLUCOSE DEVICE Routine 06/28/2022 11:42 AM SENIOR ART DIRECTOR POCT GLUCOSE DEVICE Routine 06/28/2022 9:53 AM SENIOR ART DIRECTOR POCT GLUCOSE DEVICE Routine 06/28/2022 8 :37 AM SENIOR ART DIRECTOR POCT GLUCOSE DEVICE Routine 06/28/2022 8 :20 AM SENIOR ART DIRECTOR POCT GLUCOSE DEVICE Routine 06/28/2022 8 :02 AM SENIOR ART DIRECTOR POCT GLUCOSE DEVICE Routine 06/28/2022 7 :41 AM SENIOR ART DIRECTOR POCT GLUCOSE DEVICE Routine 06/27/2022 7 :51 PM SENIOR ART DIRECTOR POCT GLUCOSE DEVICE Routine 06/27/2022 4 :54 PM SENIOR ART DIRECTOR POCT GLUCOSE DEVICE Routine 06/27/2022 11:37 AM SENIOR ART DIRECTOR POCT GLUCOSE DEVICE Routine 06/27/2022 7 :54 AM SENIOR ART DIRECTOR EGFR Routine 06/27/2022 3:51 AM SENIOR ART DIRECTOR CBC WITHOUT DIFFERENTIAL Routine 06/27/2022 3:51 AM SENIOR ART DIRECTOR BASIC METABOLIC PANEL Routine 06/27/2022 3:51 AM SENIOR ART DIRECTOR POCT GLUCOSE DEVICE Routine 06/27/2022 1 :54 AM SENIOR ART DIRECTOR POCT GLUCOSE DEVICE Routine 06/26/2022 9 :14 PM SENIOR ART DIRECTOR POCT GLUCOSE DEVICE Routine 06/26/2022 5 :53 PM SENIOR ART DIRECTOR POCT GLUCOSE DEVICE Routine 06/26/2022 1 :16 PM SENIOR ART DIRECTOR POCT GLUCOSE DEVICE Routine 06/26/2022 11:09 AM SENIOR ART DIRECTOR POCT GLUCOSE DEVICE Routine 06/26/2022 9 :07 AM SENIOR ART DIRECTOR POCT GLUCOSE DEVICE Routine 06/26/2022 7 :25 AM SENIOR ART DIRECTOR EGFR Routine 06/26/2022 3:23 AM SENIOR ART DIRECTOR CBC WITHOUT DIFFERENTIAL Routine 06/26/2022 3:23 AM SENIOR ART DIRECTOR BASIC METABOLIC PANEL Routine 06/26/2022 3:23 AM SENIOR ART DIRECTOR POCT GLUCOSE DEVICE Routine 06/26/2022 1 :32 AM CDT POCT GLUCOSE DEVICE Routine 06/25/2022 9 :02 PM CDT POCT GLUCOSE DEVICE Routine 06/25/2022 6 :30 PM CDT POCT GLUCOSE DEVICE Routine 06/25/2022 4 :21 PM CDT POCT GLUCOSE DEVICE Routine 06/25/2022 11:42 AM CDT POCT GLUCOSE DEVICE Routine 06/25/2022 7 :42 AM CDT EGFR Routine 06/25/2022 4:36 AM CDT PHOSPHORUS Routine 06/25/2022 4:36 AM CDT BASIC METABOLIC PANEL Routine 06/25/2022 4:36 AM CDT POCT GLUCOSE DEVICE Routine 06/25/2022 1 :41 AM CDT POCT GLUCOSE DEVICE Routine 06/24/2022 8 :01 PM CDT POCT GLUCOSE DEVICE Routine 06/24/2022 4 :55 PM CDT POCT GLUCOSE DEVICE Routine 06/24/2022 12:53 PM CDT CONTINUOUS CYCLIC PERITONEAL DIALYSIS (CCPD) Routine 06/24/2022 12:47 PM CDT POCT GLUCOSE DEVICE Routine 06/24/2022 11:31 AM CDT POCT GLUCOSE DEVICE Routine 06/24/2022 9 :54 AM CDT POCT GLUCOSE DEVICE Routine 06/24/2022 7 :33 AM CDT EGFR Routine 06/24/2022 4:10 AM CDT CBC WITHOUT DIFFERENTIAL Routine 06/24/2022 4:10 AM CDT BASIC METABOLIC PANEL Routine 06/24/2022 4:10 AM CDT POCT GLUCOSE DEVICE Routine 06/24/2022 1 :44 AM CDT POCT GLUCOSE DEVICE Routine 06/24/2022 1 :26 AM CDT POCT GLUCOSE DEVICE Routine 06/23/2022 8 :49 PM CDT POCT GLUCOSE DEVICE Routine 06/23/2022 7 :45 PM CDT POCT GLUCOSE DEVICE Routine 06/23/2022 5 :57 PM CDT POCT GLUCOSE DEVICE Routine 06/23/2022 4 :48 PM CDT POCT GLUCOSE DEVICE Routine 06/23/2022 3 :43 PM CDT POCT GLUCOSE DEVICE Routine 06/23/2022 3 :01 PM CDT EGFR Routine 06/23/2022 2:35 PM CDT BASIC METABOLIC PANEL Routine 06/23/2022 2:35 PM CDT TROPONIN I HIGH-SENSITIVITY 2-HOUR Timed 06/23/2022 2:34 PM CDT DIFFERENTIAL AUTO STAT 06/23/2022 2:3 4 PM CDT CBC WITH AUTO DIFFERENTIAL STAT 06/23/2022 2:34 PM CDT POCT GLUCOSE DEVICE Routine 06/23/2022 2 :25 PM CDT TROPONIN I HIGH-SENSITIVITY SERIES (BASELINE, 2HR, 4HR, 6HR) STAT 06/23/2022 2:01 PM CDT CRITICAL RESULT CALLBACK CARDIO CHEM STAT 06/23/2022 2:01 PM CDT EGFR STAT 06/23/2022 2:01 PM CDT CBC WITHOUT DIFFERENTIAL STAT 06/23/2022 2:01 PM CDT PHOSPHORUS STAT 06/23/2022 2:01 PM CDT MAGNESIUM STAT 06/23/2022 2:01 PM CDT BASIC METABOLIC PANEL STAT 06/23/2022 2:01 PM CDT POCT GLUCOSE DEVICE Routine 06/23/2022 1 :42 PM CDT ECG 12-LEAD STAT 06/23/2022 1:30 PM CDT POCT GLUCOSE DEVICE Routine 06/23/2022 1 :20 PM CDT POCT GLUCOSE DEVICE Routine 06/23/2022 11:48 AM CDT POCT GLUCOSE DEVICE Routine 06/23/2022 7 :28 AM CDT CBC WITHOUT DIFFERENTIAL Routine 06/23/2022 4:21 AM CDT MAGNESIUM Routine 06/23/2022 4:21 AM CDT POCT GLUCOSE DEVICE Routine 06/23/2022 1 :38 AM CDT PHOSPHORUS Routine 06/22/2022 9:28 PM CDT POCT GLUCOSE DEVICE Routine 06/22/2022 9 :14 PM CDT POCT GLUCOSE DEVICE Routine 06/22/2022 5 :37 PM CDT EGFR Timed 06/22/2022 3:21 PM CDT DIFFERENTIAL AUTO Timed 06/22/2022 3:2 1 PM CDT CBC WITH AUTO DIFFERENTIAL Timed 06/22/2022 3:21 PM CDT MAGNESIUM Timed 06/22/2022 3:21 PM CDT COMPREHENSIVE METABOLIC PANEL Timed 06/22/2022 3:21 PM CDT POCT GLUCOSE DEVICE Routine 06/22/2022 11:38 AM CDT POCT GLUCOSE DEVICE Routine 06/22/2022 10:46 AM CDT POCT GLUCOSE DEVICE Routine 06/22/2022 9 :07 AM CDT POCT GLUCOSE DEVICE Routine 06/22/2022 7 :40 AM CDT POCT GLUCOSE DEVICE Routine 06/22/2022 7 :38 AM CDT POCT GLUCOSE DEVICE Routine 06/22/2022 5 :54 AM CDT LACTATE Routine 06/21/2022 9:55 PM CDT EGFR Timed 06/21/2022 9:55 PM CDT DIFFERENTIAL AUTO Timed 06/21/2022 9:5 5 PM CDT POCT GLUCOSE DEVICE Routine 06/21/2022 9 :55 PM CDT CBC WITH AUTO DIFFERENTIAL Timed 06/21/2022 9:55 PM CDT TRIGLYCERIDES Routine 06/21/2022 9:55 PM CDT PHOSPHORUS Routine 06/21/2022 9:55 PM CDT MAGNESIUM Timed 06/21/2022 9:55 PM CDT LIPASE Routine 06/21/2022 9:55 PM CDT COMPREHENSIVE METABOLIC PANEL Timed 06/21/2022 9:55 PM CDT DIFFERENTIAL AUTO Timed 06/21/2022 5:2 3 PM CDT CBC WITH AUTO DIFFERENTIAL Timed 06/21/2022 5:23 PM CDT POCT GLUCOSE DEVICE Routine 06/21/2022 4 :08 PM CDT FL MODIFIED BARIUM SWALLOW W VIDEO IP Routine 06/21/2022 2:06 PM CDT LOCKSTITCH HEMMER EVALUATE AND TREAT VIDEOFLUOROSCOPIC SWALLOW STUDY Routine 06/21/2022 2:02 PM CDT POCT GLUCOSE DEVICE Routine 06/21/2022 12:00 PM CDT EGFR Timed 06/21/2022 8:38 AM CDT DIFFERENTIAL AUTO Timed 06/21/2022 8:3 8 AM CDT CBC WITH AUTO DIFFERENTIAL Timed 06/21/2022 8:38 AM CDT MAGNESIUM Timed 06/21/2022 8:38 AM CDT COMPREHENSIVE METABOLIC PANEL Timed 06/21/2022 8:38 AM CDT POCT GLUCOSE DEVICE Routine 06/21/2022 8 :34 AM CDT POCT GLUCOSE DEVICE Routine 06/21/2022 5 :30 AM CDT POCT GLUCOSE DEVICE Routine 06/21/2022 12:22 AM CDT DIFFERENTIAL AUTO Timed 06/21/2022 12:21 AM CDT CBC WITH AUTO DIFFERENTIAL Timed 06/21/2022 12:21 AM CDT POCT GLUCOSE DEVICE Routine 06/20/2022 7 :49 PM CDT LACTATE Routine 06/20/2022 7:46 PM CDT EGFR Timed 06/20/2022 7:46 PM CDT BETA-HYDROXYBUTYRATE Routine 06/20/2022 7:46 PM CDT TRIGLYCERIDES Routine 06/20/2022 7:46 PM CDT PHOSPHORUS Routine 06/20/2022 7:46 PM CDT MAGNESIUM Timed 06/20/2022 7:46 PM CDT LIPASE Routine 06/20/2022 7:46 PM CDT COMPREHENSIVE METABOLIC PANEL Timed 06/20/2022 7:46 PM CDT DIFFERENTIAL AUTO Routine 06/20/2022 6:1 8 PM CDT CBC WITH AUTO DIFFERENTIAL Routine 06/20/2022 6:18 PM CDT POCT GLUCOSE DEVICE Routine 06/20/2022 3 :53 PM CDT DIFFERENTIAL AUTO Timed 06/20/2022 3:2 2 PM CDT CBC WITH AUTO DIFFERENTIAL Timed 06/20/2022 3:[address] CHEST ABDOMEN PELVIS WO CONTRAST Timed 06/20/2022 2:15 PM CDT TRANSFUSE RED BLOOD CELLS Timed 06/20/2022 10:00 AM CDT PREPARE RBC Timed 06/20/2022 9:35 AM CDT EGFR Timed 06/20/2022 8:24 AM CDT DIFFERENTIAL AUTO Timed 06/20/2022 8:2 4 AM CDT CBC WITH AUTO DIFFERENTIAL Timed 06/20/2022 8:24 AM CDT MAGNESIUM Timed 06/20/2022 8:24 AM CDT COMPREHENSIVE METABOLIC PANEL Timed 06/20/2022 8:24 AM CDT POCT GLUCOSE DEVICE Routine 06/20/2022 8 :21 AM CDT POCT GLUCOSE DEVICE Routine 06/20/2022 4 :57 AM CDT TRANSFUSE RED BLOOD CELLS Timed 06/20/2022 1:20 AM CDT HEMOGLOBIN AND HEMATOCRIT Routine 06/20/2022 12:25 AM CDT HC ANTIBODY SCREEN RBC Timed 12:23 AM CDT PREPARE RBC Timed 06/20/2022 12:15 AM CDT POCT GLUCOSE DEVICE Routine 06/20/2022 12:01 AM CDT HEMOGLOBIN AND HEMATOCRIT Routine 06/19/2022 11:25 PM CDT POCT GLUCOSE DEVICE Routine 06/19/2022 8 :55 PM CDT LACTATE Routine 06/19/2022 8:54 PM CDT EGFR Timed 06/19/2022 8:54 PM CDT DIFFERENTIAL AUTO Timed 06/19/2022 8:5 4 PM CDT BETA-HYDROXYBUTYRATE Routine 06/19/2022 8:54 PM CDT CBC WITH AUTO DIFFERENTIAL Timed 06/19/2022 8:54 PM CDT APTT STAT 06/19/2022 8:54 PM CDT MAGNESIUM Timed 06/19/2022 8:54 PM CDT BLOOD GAS, ARTERIAL STAT 06/19/2022 8 :54 PM CDT COMPREHENSIVE METABOLIC PANEL Timed 06/19/2022 8:54 PM CDT POCT GLUCOSE DEVICE Routine 06/19/2022 4 :59 PM CDT POCT GLUCOSE DEVICE Routine 06/19/2022 1 :22 PM CDT ECG 12-LEAD STAT 06/19/2022 1:03 PM CDT US RUQ ED Urgent/IP Urgent 06/19/2022 10:35 AM CDT EGFR Timed 06/19/2022 9:09 AM CDT DIFFERENTIAL AUTO Timed 06/19/2022 9:0 9 AM CDT CBC WITH AUTO DIFFERENTIAL Timed 06/19/2022 9:09 AM CDT MAGNESIUM Timed 06/19/2022 9:09 AM CDT BLOOD GAS, ARTERIAL STAT 06/19/2022 9 :09 AM CDT COMPREHENSIVE METABOLIC PANEL Timed 06/19/2022 9:09 AM CDT POCT GLUCOSE DEVICE Routine 06/19/2022 9 :08 AM CDT XR CHEST 1 VIEW Timed 06/19/2022 5:51 AM CDT LACTATE Routine 06/18/2022 10:50 PM CDT EGFR Timed 06/18/2022 10:50 PM CDT DIFFERENTIAL AUTO Timed 06/18/2022 10:50 PM CDT BETA-HYDROXYBUTYRATE Routine 06/18/2022 10:50 PM CDT CBC WITH AUTO DIFFERENTIAL Timed 06/18/2022 10:50 PM CDT TRIGLYCERIDES Routine 06/18/2022 10:50 PM CDT PHOSPHORUS Routine 06/18/2022 10:50 PM CDT MAGNESIUM Timed 06/18/2022 10:50 PM CDT LIPASE Routine 06/18/2022 10:50 PM CDT VANCOMYCIN LEVEL RANDOM Routine 06/18/20 10:50 PM CDT COMPREHENSIVE METABOLIC PANEL Timed 06/18/2022 10:50 PM CDT POCT GLUCOSE DEVICE Routine 06/18/2022 7 :51 PM CDT ECG 12-LEAD STAT 06/18/2022 6:40 PM CDT POCT GLUCOSE DEVICE Routine 06/18/2022 5 :11 PM CDT POCT GLUCOSE DEVICE Routine 06/18/2022 4 :16 PM CDT POCT GLUCOSE DEVICE Routine 06/18/2022 2 :38 PM CDT POCT GLUCOSE DEVICE Routine 06/18/2022 1 :34 PM CDT BETA-HYDROXYBUTYRATE Routine 06/18/2022 1:32 PM CDT CENTRAL LINE PLACEMENT > 5 YEARS ED Urgent/IP Urgent 06/18/2022 12:47 PM CDT POCT GLUCOSE DEVICE Routine 06/18/2022 11:34 AM CDT BLOOD GAS, ARTERIAL STAT 06/18/2022 10:14 AM CDT POCT GLUCOSE DEVICE Routine 06/18/2022 10:13 AM CDT EGFR Timed 06/18/2022 8:52 AM CDT DIFFERENTIAL AUTO Timed 06/18/2022 8:5 2 AM CDT CBC WITH AUTO DIFFERENTIAL Timed 06/18/2022 8:52 AM CDT MAGNESIUM Timed 06/18/2022 8:52 AM CDT VANCOMYCIN LEVEL RANDOM Timed 06/18/20 8:52 AM CDT COMPREHENSIVE METABOLIC PANEL Timed 06/18/2022 8:52 AM CDT POCT GLUCOSE DEVICE Routine 06/18/2022 8 :49 AM CDT POCT GLUCOSE DEVICE Routine 06/18/2022 6 :53 AM CDT POCT GLUCOSE DEVICE Routine 06/18/2022 6 :11 AM CDT CHEST PHYSIO THERAPY Routine 06/18/2022 6:00 AM CDT XR CHEST 1 VIEW Routine 06/18/2022 5:48 AM CDT APTT STAT 06/18/2022 5:13 AM CDT BLOOD GAS, ARTERIAL STAT 06/18/2022 5 :13 AM CDT POCT GLUCOSE DEVICE Routine 06/18/2022 5 :10 AM CDT POCT GLUCOSE DEVICE Routine 06/18/2022 4 :08 AM CDT POCT GLUCOSE DEVICE Routine 06/18/2022 3 :24 AM CDT POCT GLUCOSE DEVICE Routine 06/18/2022 2 :25 AM CDT POCT GLUCOSE DEVICE Routine 06/18/2022 1 :27 AM CDT POCT GLUCOSE DEVICE Routine 06/17/2022 10:45 PM CDT HEMOGLOBIN AND HEMATOCRIT STAT 06/17/2022 10:31 PM CDT HC ANTIBODY SCREEN RBC STAT 10:31 PM CDT LACTATE Routine 06/17/2022 9:17 PM CDT EGFR Routine 06/17/2022 9:17 PM CDT DIFFERENTIAL AUTO Timed 06/17/2022 9:1 7 PM CDT BETA-HYDROXYBUTYRATE Routine 06/17/2022 9:17 PM CDT CBC WITH AUTO DIFFERENTIAL Timed 06/17/2022 9:17 PM CDT TRIGLYCERIDES Routine 06/17/2022 9:17 PM CDT PHOSPHORUS Routine 06/17/2022 9:17 PM CDT MAGNESIUM Routine 06/17/2022 9:17 PM CDT LIPASE Routine 06/17/2022 9:17 PM CDT COMPREHENSIVE METABOLIC PANEL Routine 06/17/2022 9:17 PM CDT POCT GLUCOSE DEVICE Routine 06/17/2022 8 :52 PM CDT POCT GLUCOSE DEVICE Routine 06/17/2022 7 :40 PM CDT [place] INSJ NON-TUNNELED CENTRAL VENOUS CATH AGE 3 YR/> Routine 06/17/2022 7:30 PM CDT Hypotension, unspecified hypotension type End stage renal disease (CMS/HCC) (HCC) CHEST PHYSIO THERAPY Routine 06/17/2022 6:00 PM CDT POCT GLUCOSE DEVICE Routine 06/17/2022 5 :11 PM CDT POCT GLUCOSE DEVICE Routine 06/17/2022 3 :01 PM CDT POCT GLUCOSE DEVICE Routine 06/17/2022 1 :50 PM CDT POCT GLUCOSE DEVICE Routine 06/17/2022 12:59 PM CDT POCT GLUCOSE DEVICE Routine 06/17/2022 11:55 AM CDT POCT GLUCOSE DEVICE Routine 06/17/2022 10:51 AM CDT POCT GLUCOSE DEVICE Routine 06/17/2022 10:11 AM CDT POCT GLUCOSE DEVICE Routine 06/17/2022 9 :39 AM CDT BLOOD CULTURE Routine 06/17/2022 8:13 AM CDT BLOOD CULTURE Routine 06/17/2022 8:13 AM CDT EGFR Timed 06/17/2022 8:02 AM CDT DIFFERENTIAL AUTO Timed 06/17/2022 8:0 2 AM CDT CBC WITH AUTO DIFFERENTIAL Timed 06/17/2022 8:02 AM CDT MAGNESIUM Timed 06/17/2022 8:02 AM CDT COMPREHENSIVE METABOLIC PANEL Timed 06/17/2022 8:02 AM CDT POCT GLUCOSE DEVICE Routine 06/17/2022 7 :37 AM CDT APTT STAT 06/17/2022 6:14 AM CDT POCT GLUCOSE DEVICE Routine 06/17/2022 6 :13 AM CDT CHEST PHYSIO THERAPY Routine 06/17/2022 6:00 AM CDT XR CHEST 1 VIEW IP Routine 06/17/2022 5:29 AM CDT POCT GLUCOSE DEVICE Routine 06/17/2022 4 :53 AM CDT BLOOD GAS, ARTERIAL STAT 06/17/2022 3 :46 AM CDT POCT GLUCOSE DEVICE Routine 06/17/2022 3 :44 AM CDT POCT GLUCOSE DEVICE Routine 06/17/2022 2 :52 AM CDT POCT GLUCOSE DEVICE Routine 06/17/2022 1 :52 AM CDT POCT GLUCOSE DEVICE Routine 06/17/2022 12:36 AM CDT APTT STAT 06/17/2022 12:36 AM CDT BLOOD GAS, ARTERIAL STAT 06/16/2022 11:19 PM CDT POCT GLUCOSE DEVICE Routine 06/16/2022 11:11 PM CDT POCT GLUCOSE DEVICE Routine 06/16/2022 10:07 PM CDT XR CHEST 1 VIEW ED Urgent/IP Urgent 06/16/2022 9:03 PM CDT LACTATE Routine 06/16/2022 8:52 PM CDT EGFR Timed 06/16/2022 8:52 PM CDT DIFFERENTIAL AUTO Timed 06/16/2022 8:5 2 PM CDT BETA-HYDROXYBUTYRATE Routine 06/16/2022 8:52 PM CDT CBC WITH AUTO DIFFERENTIAL Timed 06/16/2022 8:52 PM CDT TRIGLYCERIDES Routine 06/16/2022 8:52 PM CDT PHOSPHORUS Routine 06/16/2022 8:52 PM CDT MAGNESIUM Timed 06/16/2022 8:52 PM CDT LIPASE Routine 06/16/2022 8:52 PM CDT COMPREHENSIVE METABOLIC PANEL Timed 06/16/2022 8:52 PM CDT POCT GLUCOSE DEVICE Routine 06/16/2022 8 :06 PM CDT POCT GLUCOSE DEVICE Routine 06/16/2022 7 :16 PM CDT POCT GLUCOSE DEVICE Routine 06/16/2022 5 :52 PM CDT APTT STAT 06/16/2022 4:49 PM CDT POCT GLUCOSE DEVICE Routine 06/16/2022 4 :41 PM CDT BLOOD GAS, ARTERIAL STAT 06/16/2022 3 :31 PM CDT POCT GLUCOSE DEVICE Routine 06/16/2022 3 :27 PM CDT POCT GLUCOSE DEVICE Routine 06/16/2022 1 :00 PM CDT EGFR Routine 06/16/2022 12:57 PM CDT BASIC METABOLIC PANEL Routine 06/16/2022 12:57 PM CDT BLOOD GAS, ARTERIAL STAT 06/16/2022 10:54 AM CDT POCT GLUCOSE DEVICE Routine 06/16/2022 10:50 AM CDT APTT STAT 06/16/2022 9:14 AM CDT EGFR Timed 06/16/2022 7:54 AM CDT DIFFERENTIAL AUTO Timed 06/16/2022 7:5 4 AM CDT BETA-HYDROXYBUTYRATE Timed 06/16/2022 7:54 AM CDT CBC WITH AUTO DIFFERENTIAL Timed 06/16/2022 7:54 AM CDT MAGNESIUM Timed 06/16/2022 7:54 AM CDT BLOOD GAS, ARTERIAL STAT 06/16/2022 7 :54 AM CDT COMPREHENSIVE METABOLIC PANEL Timed 06/16/2022 7:54 AM CDT POCT GLUCOSE DEVICE Routine 06/16/2022 7 :52 AM CDT CHEST PHYSIO THERAPY Routine 06/16/2022 6:00 AM CDT POCT GLUCOSE DEVICE Routine 06/16/2022 4 :52 AM CDT XR CHEST 1 VIEW Timed 06/16/2022 4:43 AM CDT POCT GLUCOSE DEVICE Routine 06/16/2022 12:01 AM CDT APTT STAT 06/16/2022 12:01 AM CDT CBC WITHOUT DIFFERENTIAL Timed 06/16/2022 12:01 AM CDT EGFR Timed 06/15/2022 8:51 PM CDT DIFFERENTIAL AUTO Timed 06/15/2022 8:5 1 PM CDT BETA-HYDROXYBUTYRATE Routine 06/15/2022 8:51 PM CDT CBC WITH AUTO DIFFERENTIAL Timed 06/15/2022 8:51 PM CDT TRIGLYCERIDES Routine 06/15/2022 8:51 PM CDT PHOSPHORUS Routine 06/15/2022 8:51 PM CDT MAGNESIUM Timed 06/15/2022 8:51 PM CDT LIPASE Routine 06/15/2022 8:51 PM CDT COMPREHENSIVE METABOLIC PANEL Timed 06/15/2022 8:51 PM CDT POCT GLUCOSE DEVICE Routine 06/15/2022 8 :49 PM CDT C. DIFFICILE TESTING Routine 06/15/2022 6:15 PM CDT VRE CULTURE, SURVEILLANCE Routine 06/15/2022 6:14 PM CDT POCT GLUCOSE DEVICE Routine 06/15/2022 3 :21 PM CDT BLOOD GAS, ARTERIAL STAT 06/15/2022 11:21 AM CDT POCT GLUCOSE DEVICE Routine 06/15/2022 11:20 AM CDT RESPIRATORY PATHOGEN PANEL Routine 06/15/2022 11:05 AM CDT US VEIN DUPLEX LOWER EXTREMITY BILATERAL COMPLETE ED Urgent/IP Urgent 06/15/2022 11:00 AM CDT POCT GLUCOSE DEVICE Routine 06/15/2022 8 :21 AM CDT OXYHEMOGLOBIN, CENTRAL VENOUS STAT 06/15/2022 8:11 AM CDT APTT STAT 06/15/2022 8:11 AM CDT EGFR Timed 06/15/2022 8:06 AM CDT DIFFERENTIAL AUTO Timed 06/15/2022 8:0 6 AM CDT CBC WITH AUTO DIFFERENTIAL Timed 06/15/2022 8:06 AM CDT BLOOD CULTURE Routine 06/15/2022 8:06 AM CDT BLOOD CULTURE Routine 06/15/2022 8:06 AM CDT MAGNESIUM Timed 06/15/2022 8:06 AM CDT COMPREHENSIVE METABOLIC PANEL Timed 06/15/2022 8:06 AM CDT XR CHEST 1 VIEW Timed 06/15/2022 5:21 AM CDT POCT GLUCOSE DEVICE Routine 06/15/2022 3 :37 AM CDT LACTATE, WHOLE BLOOD STAT 06/15/2022 3:37 AM CDT BLOOD GAS, ARTERIAL STAT 06/15/2022 3 :37 AM CDT PNEUMONIA PCR Routine 06/15/2022 1:53 AM CDT PNEUMONIA PCR WITH AEROBIC CULTURE AND GRAM STAIN Routine 06/15/2022 1:53 AM CDT BLOOD GAS, ARTERIAL STAT 06/14/2022 11:53 PM CDT POCT GLUCOSE DEVICE Routine 06/14/2022 11:52 PM CDT EGFR Routine 06/14/2022 7:41 PM CDT DIFFERENTIAL AUTO Timed 06/14/2022 7:4 1 PM CDT BETA-HYDROXYBUTYRATE Routine 06/14/2022 7:41 PM CDT CBC WITH AUTO DIFFERENTIAL Timed 06/14/2022 7:41 PM CDT TRIGLYCERIDES Routine 06/14/2022 7:41 PM CDT PHOSPHORUS Routine 06/14/2022 7:41 PM CDT MAGNESIUM Routine 06/14/2022 7:41 PM CDT LIPASE Routine 06/14/2022 7:41 PM CDT COMPREHENSIVE METABOLIC PANEL Routine 06/14/2022 7:41 PM CDT POCT GLUCOSE DEVICE Routine 06/14/2022 7 :40 PM CDT BLOOD GAS, ARTERIAL STAT 06/14/2022 4 :19 PM CDT POCT GLUCOSE DEVICE Routine 06/14/2022 4 :16 PM CDT POCT GLUCOSE DEVICE Routine 06/14/2022 11:21 AM CDT XR CHEST 1 VIEW ED Urgent/IP Urgent 06/14/2022 10:56 AM CDT POCT GLUCOSE DEVICE Routine 06/14/2022 8 :18 AM CDT EGFR Timed 06/14/2022 8:16 AM CDT DIFFERENTIAL AUTO Timed 06/14/2022 8:1 6 AM CDT CBC WITH AUTO DIFFERENTIAL Timed 06/14/2022 8:16 AM CDT APTT STAT 06/14/2022 8:16 AM CDT MAGNESIUM Timed 06/14/2022 8:16 AM CDT BLOOD GAS, ARTERIAL STAT 06/14/2022 8 :16 AM CDT COMPREHENSIVE METABOLIC PANEL Timed 06/14/2022 8:16 AM CDT POCT GLUCOSE DEVICE Routine 06/14/2022 7 :46 AM CDT XR CHEST 1 VIEW Timed 06/14/2022 4:14 AM CDT POCT GLUCOSE DEVICE Routine 06/14/2022 4 :01 AM CDT POCT GLUCOSE DEVICE Routine 06/13/2022 11:38 PM CDT APTT Routine 06/13/2022 10:49 PM CDT CBC WITHOUT DIFFERENTIAL Timed 06/13/2022 10:49 PM CDT VANCOMYCIN LEVEL TROUGH Routine 06/13/20 10:49 PM CDT POCT GLUCOSE DEVICE Routine 06/13/2022 10:48 PM CDT POCT GLUCOSE DEVICE Routine 06/13/2022 8 :28 PM CDT EGFR Routine 06/13/2022 8:17 PM CDT DIFFERENTIAL AUTO Timed 06/13/2022 8:1 7 PM CDT BETA-HYDROXYBUTYRATE Routine 06/13/2022 8:17 PM CDT CBC WITH AUTO DIFFERENTIAL Timed 06/13/2022 8:17 PM CDT LACTATE, WHOLE BLOOD STAT 06/13/2022 8:17 PM CDT TRIGLYCERIDES Routine 06/13/2022 8:17 PM CDT PHOSPHORUS Routine 06/13/2022 8:17 PM CDT MAGNESIUM Routine 06/13/2022 8:17 PM CDT LIPASE Routine 06/13/2022 8:17 PM CDT BLOOD GAS, ARTERIAL STAT 06/13/2022 8 :17 PM CDT COMPREHENSIVE METABOLIC PANEL Routine 06/13/2022 8:17 PM CDT XR CHEST 1 VIEW ED Urgent/IP Urgent 06/13/2022 4:45 PM CDT POTASSIUM, WHOLE BLOOD STAT 4:12 PM CDT LACTATE, WHOLE BLOOD STAT 06/13/2022 4:12 PM CDT APTT STAT 06/13/2022 4:12 PM CDT BLOOD GAS, ARTERIAL STAT 06/13/2022 4 :12 PM CDT POCT GLUCOSE DEVICE Routine 06/13/2022 4 :11 PM CDT POCT GLUCOSE DEVICE Routine 06/13/2022 12:29 PM CDT BLOOD GAS, ARTERIAL STAT 06/13/2022 12:20 PM CDT XR CHEST 1 VIEW ED Urgent/IP Urgent 06/13/2022 11:11 AM CDT POTASSIUM, WHOLE BLOOD STAT 9:41 AM CDT LACTATE, WHOLE BLOOD STAT 06/13/2022 9:41 AM CDT BLOOD GAS, ARTERIAL STAT 06/13/2022 9 :41 AM CDT POCT GLUCOSE DEVICE Routine 06/13/2022 9 :38 AM CDT TRANSTHORACIC ECHO (TTE) COMPLETE W DOPPLER/CF W CONTRAST W BUBBLE Routine 06/13/2022 9:34 AM CDT EGFR Timed 06/13/2022 9:33 AM CDT CBC WITH AUTO DIFFERENTIAL Timed 06/13/2022 9:33 AM CDT MANUAL DIFFERENTIAL Timed 06/13/2022 9 :33 AM CDT MAGNESIUM Timed 06/13/2022 9:33 AM CDT COMPREHENSIVE METABOLIC PANEL Timed 06/13/2022 9:33 AM CDT POCT GLUCOSE DEVICE Routine 06/13/2022 4 :40 AM CDT BLOOD GAS, ARTERIAL STAT 06/13/2022 2 :26 AM CDT POTASSIUM, WHOLE BLOOD Routine 1:11 AM CDT BLOOD GAS, ARTERIAL STAT 06/13/2022 1 :11 AM CDT POCT GLUCOSE DEVICE Routine 06/12/2022 11:26 PM CDT LACTATE, WHOLE BLOOD STAT 06/12/2022 8:55 PM CDT EGFR Routine 06/12/2022 8:47 PM CDT DIFFERENTIAL AUTO Timed 06/12/2022 8:4 7 PM CDT BETA-HYDROXYBUTYRATE Routine 06/12/2022 8:47 PM CDT CBC WITH AUTO DIFFERENTIAL Timed 06/12/2022 8:47 PM CDT APTT Routine 06/12/2022 8:47 PM CDT TRIGLYCERIDES Routine 06/12/2022 8:47 PM CDT PHOSPHORUS Routine 06/12/2022 8:47 PM CDT MAGNESIUM Routine 06/12/2022 8:47 PM CDT LIPASE Routine 06/12/2022 8:47 PM CDT BLOOD GAS, ARTERIAL STAT 06/12/2022 8 :47 PM CDT COMPREHENSIVE METABOLIC PANEL Routine 06/12/2022 8:47 PM CDT POCT GLUCOSE DEVICE Routine 06/12/2022 8 :44 PM CDT POCT GLUCOSE DEVICE Routine 06/12/2022 4 :01 PM CDT APTT Routine 06/12/2022 4:01 PM CDT BLOOD GAS, ARTERIAL STAT 06/12/2022 4 :01 PM CDT AEROBIC CULTURE AND GRAM STAIN Routine 06/12/2022 2:31 PM CDT XR CHEST 1 VIEW IP Routine 06/12/2022 1:10 PM CDT BLOOD GAS, ARTERIAL STAT 06/12/2022 12:56 PM CDT BLOOD GAS, ARTERIAL STAT 06/12/2022 11:37 AM CDT POCT GLUCOSE DEVICE Routine 06/12/2022 11:36 AM CDT BLOOD GAS, ARTERIAL STAT 06/12/2022 9 :53 AM CDT EGFR Timed 06/12/2022 8:02 AM CDT CBC WITH AUTO DIFFERENTIAL Timed 06/12/2022 8:02 AM CDT MANUAL DIFFERENTIAL Timed 06/12/2022 8 :02 AM CDT APTT Routine 06/12/2022 8:02 AM CDT MAGNESIUM Timed 06/12/2022 8:02 AM CDT BLOOD GAS, ARTERIAL STAT 06/12/2022 8 :02 AM CDT COMPREHENSIVE METABOLIC PANEL Timed 06/12/2022 8:02 AM CDT POCT GLUCOSE DEVICE Routine 06/12/2022 8 :01 AM CDT BLOOD GAS, ARTERIAL STAT 06/12/2022 6 :21 AM CDT POCT GLUCOSE DEVICE Routine 06/12/2022 4 :57 AM CDT APTT Routine 06/12/2022 1:52 AM CDT POCT GLUCOSE DEVICE Routine 06/11/2022 11:32 PM CDT CBC WITH AUTO DIFFERENTIAL Routine 06/11/2022 11:25 PM CDT MANUAL DIFFERENTIAL Routine 06/11/2022 11:25 PM CDT BLOOD GAS, ARTERIAL STAT 06/11/2022 11:25 PM CDT LACTATE, WHOLE BLOOD STAT 06/11/2022 8:17 PM CDT BLOOD GAS, ARTERIAL STAT 06/11/2022 8 :17 PM CDT EGFR Routine 06/11/2022 8:12 PM CDT BETA-HYDROXYBUTYRATE Routine 06/11/2022 8:12 PM CDT TRIGLYCERIDES Routine 06/11/2022 8:12 PM CDT PHOSPHORUS Routine 06/11/2022 8:12 PM CDT MAGNESIUM Routine 06/11/2022 8:12 PM CDT LIPASE Routine 06/11/2022 8:12 PM CDT COMPREHENSIVE METABOLIC PANEL Routine 06/11/2022 8:12 PM CDT POCT GLUCOSE DEVICE Routine 06/11/2022 8 :07 PM CDT XR CHEST 1 VIEW ED Urgent/IP Urgent 06/11/2022 4:07 PM CDT POTASSIUM, WHOLE BLOOD STAT 3:21 PM CDT LACTATE, WHOLE BLOOD STAT 06/11/2022 3:21 PM CDT APTT STAT 06/11/2022 3:21 PM CDT PROTIME-INR STAT 06/11/2022 3:21 PM CDT CBC WITHOUT DIFFERENTIAL STAT 06/11/2022 3:21 PM CDT BLOOD GAS, ARTERIAL STAT 06/11/2022 3 :21 PM CDT POCT GLUCOSE DEVICE Routine 06/11/2022 3 :[address] CHEST ABDOMEN PELVIS WO CONTRAST ED Urgent/IP Urgent 06/11/2022 2:32 PM CDT BLOOD GAS, ARTERIAL Timed 06/11/2022 12:11 PM CDT POCT GLUCOSE DEVICE Routine 06/11/2022 12:10 PM CDT EGFR Timed 06/11/2022 8:48 AM CDT CBC WITH AUTO DIFFERENTIAL Timed 06/11/2022 8:48 AM CDT LACTATE, WHOLE BLOOD STAT 06/11/2022 8:48 AM CDT MANUAL DIFFERENTIAL Timed 06/11/2022 8 :48 AM CDT MAGNESIUM Timed 06/11/2022 8:48 AM CDT COMPREHENSIVE METABOLIC PANEL Timed 06/11/2022 8:48 AM CDT POCT GLUCOSE DEVICE Routine 06/11/2022 8 :46 AM CDT BLOOD GAS, ARTERIAL STAT 06/11/2022 6 :34 AM CDT XR CHEST 1 VIEW Timed 06/11/2022 5:48 AM CDT LACTATE, WHOLE BLOOD STAT 06/11/2022 3:31 AM CDT BLOOD GAS, ARTERIAL STAT 06/11/2022 3 :31 AM CDT POCT GLUCOSE DEVICE Routine 06/11/2022 3 :28 AM CDT BLOOD CULTURE STAT 06/11/2022 1:03 AM CDT BLOOD CULTURE STAT 06/11/2022 1:03 AM CDT POCT GLUCOSE DEVICE Routine 06/11/2022 12:49 AM CDT POCT GLUCOSE DEVICE Routine 06/10/2022 10:28 PM CDT EGFR Routine 06/10/2022 10:27 PM CDT BETA-HYDROXYBUTYRATE Routine 06/10/2022 10:27 PM CDT CBC WITH AUTO DIFFERENTIAL Timed 06/10/2022 10:27 PM CDT LACTATE, WHOLE BLOOD STAT 06/10/2022 10:27 PM CDT MANUAL DIFFERENTIAL Timed 06/10/2022 10:27 PM CDT PHOSPHORUS Routine 06/10/2022 10:27 PM CDT MAGNESIUM Routine 06/10/2022 10:27 PM CDT LIPASE Routine 06/10/2022 10:27 PM CDT BLOOD GAS, ARTERIAL STAT 06/10/2022 10:27 PM CDT COMPREHENSIVE METABOLIC PANEL Routine 06/10/2022 10:27 PM CDT POCT GLUCOSE DEVICE Routine 06/10/2022 5 :13 PM CDT TRIGLYCERIDES Timed 06/10/2022 5:13 PM CDT BLOOD GAS, ARTERIAL STAT 06/10/2022 2 :24 PM CDT POCT GLUCOSE DEVICE Routine 06/10/2022 1 :13 PM CDT LACTATE, WHOLE BLOOD STAT 06/10/2022 1:12 PM CDT BLOOD GAS, ARTERIAL STAT 06/10/2022 1 :12 PM CDT REMOVE VAD - DIFFERENT SESSION Routine 06/10/2022 11:54 AM CDT Hypotension, unspecified hypotension type POCT ACTIVATED CLOTTING TIME, LOW RANGE Routine 06/10/2022 9:56 AM CDT POCT ACTIVATED CLOTTING TIME, LOW RANGE Routine 06/10/2022 8:08 AM CDT POCT GLUCOSE DEVICE Routine 06/10/2022 7 :54 AM CDT EGFR Timed 06/10/2022 7:52 AM CDT DIFFERENTIAL AUTO Timed 06/10/2022 7:5 2 AM CDT CBC WITH AUTO DIFFERENTIAL Timed 06/10/2022 7:52 AM CDT LACTATE, WHOLE BLOOD STAT 06/10/2022 7:52 AM CDT MAGNESIUM Timed 06/10/2022 7:52 AM CDT BLOOD GAS, ARTERIAL STAT 06/10/2022 7 :52 AM CDT COMPREHENSIVE METABOLIC PANEL Timed 06/10/2022 7:52 AM CDT OXYHEMOGLOBIN, CENTRAL VENOUS STAT 06/10/2022 5:36 AM CDT LACTATE, WHOLE BLOOD STAT 06/10/2022 5:36 AM CDT XR CHEST 1 VIEW Timed 06/10/2022 5:32 AM CDT BLOOD GAS, ARTERIAL STAT 06/10/2022 3 :45 AM CDT POCT GLUCOSE DEVICE Routine 06/10/2022 3 :42 AM CDT LACTATE, WHOLE BLOOD STAT 06/10/2022 12:26 AM CDT BLOOD GAS, ARTERIAL STAT 06/10/2022 12:26 AM CDT POCT GLUCOSE DEVICE Routine 06/10/2022 12:21 AM CDT BLOOD GAS, ARTERIAL Routine 06/09/2022 10:28 PM CDT POCT GLUCOSE DEVICE Routine 06/09/2022 8 :40 PM CDT EGFR Timed 06/09/2022 8:33 PM CDT DIFFERENTIAL AUTO Timed 06/09/2022 8:3 3 PM CDT BETA-HYDROXYBUTYRATE Routine 06/09/2022 8:33 PM CDT CBC WITH AUTO DIFFERENTIAL Timed 06/09/2022 8:33 PM CDT APTT STAT 06/09/2022 8:33 PM CDT PHOSPHORUS Routine 06/09/2022 8:33 PM CDT MAGNESIUM Timed 06/09/2022 8:33 PM CDT LIPASE Routine 06/09/2022 8:33 PM CDT LACTATE DEHYDROGENASE Routine 06/09/2022 8:33 PM CDT HAPTOGLOBIN Routine 06/09/2022 8:33 PM CDT BLOOD GAS, ARTERIAL STAT 06/09/2022 8 :33 PM CDT COMPREHENSIVE METABOLIC PANEL Timed 06/09/2022 8:33 PM CDT OXYHEMOGLOBIN, PULMONARY ARTERY STAT 06/09/2022 3:52 PM CDT HEMOGLOBIN TOTAL, PULMONARY ARTERY STAT 06/09/2022 3:52 PM CDT LACTATE, WHOLE BLOOD STAT 06/09/2022 3:52 PM CDT BLOOD GAS, ARTERIAL STAT 06/09/2022 3 :52 PM CDT POCT GLUCOSE DEVICE Routine 06/09/2022 3 :50 PM CDT OXYHEMOGLOBIN, PULMONARY ARTERY STAT 06/09/2022 11:59 AM CDT HEMOGLOBIN TOTAL, PULMONARY ARTERY STAT 06/09/2022 11:59 AM CDT LACTATE, WHOLE BLOOD STAT 06/09/2022 11:59 AM CDT APTT STAT 06/09/2022 11:59 AM CDT POCT GLUCOSE DEVICE Routine 06/09/2022 11:58 AM CDT XR CHEST 1 VIEW ED Urgent/IP Urgent 06/09/2022 8:57 AM CDT OXYHEMOGLOBIN, PULMONARY ARTERY STAT 06/09/2022 7:57 AM CDT HEMOGLOBIN TOTAL, PULMONARY ARTERY STAT 06/09/2022 7:57 AM CDT POTASSIUM, WHOLE BLOOD STAT 7:57 AM CDT EGFR Timed 06/09/2022 7:57 AM CDT DIFFERENTIAL AUTO Timed 06/09/2022 7:5 7 AM CDT CBC WITH AUTO DIFFERENTIAL Timed 06/09/2022 7:57 AM CDT LACTATE, WHOLE BLOOD STAT 06/09/2022 7:57 AM CDT HC ANTIBODY SCREEN RBC Timed 7:57 AM CDT MAGNESIUM Timed 06/09/2022 7:57 AM CDT BLOOD GAS, ARTERIAL STAT 06/09/2022 7 :57 AM CDT COMPREHENSIVE METABOLIC PANEL Timed 06/09/2022 7:57 AM CDT POCT GLUCOSE DEVICE Routine 06/09/2022 7 :55 AM CDT APTT STAT 06/09/2022 5:24 AM CDT BLOOD GAS, ARTERIAL STAT 06/09/2022 5 :24 AM CDT XR CHEST 1 VIEW Timed 06/09/2022 4:30 AM CDT URINALYSIS AND REFLEX TO MICROSCOPIC AND CULTURE Routine 06/09/2022 4:08 AM CDT URINALYSIS, MICROSCOPIC ONLY Routine 06/09/2022 4:08 AM CDT POCT GLUCOSE DEVICE Routine 06/09/2022 4 :06 AM CDT OXYHEMOGLOBIN, PULMONARY ARTERY STAT 06/08/2022 11:27 PM CDT HEMOGLOBIN TOTAL, PULMONARY ARTERY STAT 06/08/2022 11:27 PM CDT HEMOGLOBIN AND HEMATOCRIT Routine 06/08/2022 11:27 PM CDT APTT STAT 06/08/2022 11:27 PM CDT POCT GLUCOSE DEVICE Routine 06/08/2022 11:25 PM CDT OXYHEMOGLOBIN, PULMONARY ARTERY STAT 06/08/2022 8:08 PM CDT HEMOGLOBIN TOTAL, PULMONARY ARTERY STAT 06/08/2022 8:08 PM CDT EGFR Routine 06/08/2022 8:08 PM CDT DIFFERENTIAL AUTO Timed 06/08/2022 8:0 8 PM CDT BETA-HYDROXYBUTYRATE Routine 06/08/2022 8:08 PM CDT RESPIRATORY PATHOGEN PANEL Routine 06/08/2022 8:08 PM CDT CBC WITH AUTO DIFFERENTIAL Timed 06/08/2022 8:08 PM CDT PHOSPHORUS Routine 06/08/2022 8:08 PM CDT MAGNESIUM Routine 06/08/2022 8:08 PM CDT LIPASE Routine 06/08/2022 8:08 PM CDT LACTATE DEHYDROGENASE Routine 06/08/2022 8:08 PM CDT HAPTOGLOBIN Routine 06/08/2022 8:08 PM CDT BLOOD GAS, ARTERIAL STAT 06/08/2022 8 :08 PM CDT COMPREHENSIVE METABOLIC PANEL Routine 06/08/2022 8:08 PM CDT POCT GLUCOSE DEVICE Routine 06/08/2022 8 :04 PM CDT POCT GLUCOSE DEVICE Routine 06/08/2022 8 :03 PM CDT OXYHEMOGLOBIN, PULMONARY ARTERY STAT 06/08/2022 4:20 PM CDT HEMOGLOBIN TOTAL, PULMONARY ARTERY STAT 06/08/2022 4:20 PM CDT POCT GLUCOSE DEVICE Routine 06/08/2022 4 :20 PM CDT LACTATE, WHOLE BLOOD STAT 06/08/2022 4:20 PM CDT APTT STAT 06/08/2022 4:20 PM CDT BLOOD GAS, ARTERIAL STAT 06/08/2022 4 :20 PM CDT TRANSTHORACIC ECHO (TTE) COMPLETE W DOPPLER/CF W CONTRAST ED Urgent/IP Urgent 06/08/2022 2:50 PM CDT XR CHEST 1 VIEW ED Urgent/IP Urgent 06/08/2022 2:02 PM CDT OXYHEMOGLOBIN, PULMONARY ARTERY STAT 06/08/2022 11:49 AM CDT HEMOGLOBIN TOTAL, PULMONARY ARTERY STAT 06/08/2022 11:49 AM CDT POTASSIUM, WHOLE BLOOD STAT 11:49 AM CDT POCT GLUCOSE DEVICE Routine 06/08/2022 11:46 AM CDT BLOOD GAS, ARTERIAL STAT 06/08/2022 10:44 AM CDT POCT GLUCOSE DEVICE Routine 06/08/2022 8 :31 AM CDT OXYHEMOGLOBIN, PULMONARY ARTERY STAT 06/08/2022 7:57 AM CDT HEMOGLOBIN TOTAL, PULMONARY ARTERY STAT 06/08/2022 7:57 AM CDT BLOOD GAS, ARTERIAL STAT 06/08/2022 7 :57 AM CDT XR CHEST 1 VIEW IP Routine 06/08/2022 6:40 AM CDT POCT GLUCOSE DEVICE Routine 06/08/2022 6 :29 AM CDT POCT GLUCOSE DEVICE Routine 06/08/2022 5 :26 AM CDT POCT GLUCOSE DEVICE Routine 06/08/2022 4 :16 AM CDT OXYHEMOGLOBIN, PULMONARY ARTERY STAT 06/08/2022 4:12 AM CDT HEMOGLOBIN TOTAL, PULMONARY ARTERY STAT 06/08/2022 4:12 AM CDT EGFR Routine 06/08/2022 4:12 AM CDT MAGNESIUM Routine 06/08/2022 4:12 AM CDT BLOOD GAS, ARTERIAL STAT 06/08/2022 4 :12 AM CDT BASIC METABOLIC PANEL Routine 06/08/2022 4:12 AM CDT POCT GLUCOSE DEVICE Routine 06/08/2022 3 :00 AM CDT POTASSIUM, WHOLE BLOOD STAT 2:14 AM CDT DIFFERENTIAL AUTO Timed 06/08/2022 2:1 4 AM CDT POCT GLUCOSE DEVICE Routine 06/08/2022 2 :14 AM CDT CBC WITH AUTO DIFFERENTIAL Timed 06/08/2022 2:14 AM CDT BLOOD GAS, ARTERIAL STAT 06/08/2022 2 :14 AM CDT POCT GLUCOSE DEVICE Routine 06/08/2022 1 :13 AM CDT BLOOD GAS, ARTERIAL STAT 06/08/2022 12:30 AM CDT OXYHEMOGLOBIN, PULMONARY ARTERY STAT 06/08/2022 12:28 AM CDT HEMOGLOBIN TOTAL, PULMONARY ARTERY STAT 06/08/2022 12:28 AM CDT POTASSIUM, WHOLE BLOOD STAT 12:28 AM CDT EGFR STAT 06/08/2022 12:28 AM CDT BETA-HYDROXYBUTYRATE STAT 06/08/2022 12:28 AM CDT MAGNESIUM STAT 06/08/2022 12:28 AM CDT BASIC METABOLIC PANEL STAT 06/08/2022 12:28 AM CDT POCT GLUCOSE DEVICE Routine 06/08/2022 12:09 AM CDT POTASSIUM, WHOLE BLOOD STAT 10:58 PM CDT EGFR STAT 06/07/2022 10:58 PM CDT BETA-HYDROXYBUTYRATE STAT 06/07/2022 10:58 PM CDT POCT GLUCOSE DEVICE Routine 06/07/2022 10:58 PM CDT LACTATE, WHOLE BLOOD STAT 06/07/2022 10:58 PM CDT PHOSPHORUS STAT 06/07/2022 10:58 PM CDT MAGNESIUM STAT 06/07/2022 10:58 PM CDT BLOOD GAS, ARTERIAL STAT 06/07/2022 10:58 PM CDT BASIC METABOLIC PANEL STAT 06/07/2022 10:58 PM CDT [place] ARTL CATHJ/CANNULJ MNTR/TRANSFUSION SPX PRQ Routine 06/07/2022 10:17 PM CDT Hypotension, unspecified hypotension type POCT GLUCOSE DEVICE Routine 06/07/2022 9 :58 PM CDT XR ABDOMEN AP 1 VIEW ED Urgent/IP Urgent 06/07/2022 8:58 PM CDT HEMOGLOBIN AND HEMATOCRIT STAT 06/07/2022 8:54 PM CDT RETICULOCYTES STAT 06/07/2022 8:54 PM CDT POCT GLUCOSE DEVICE Routine 06/07/2022 8 :50 PM CDT IRON PROFILE W/ IBC Routine 06/07/2022 8 :00 PM CDT LACTATE DEHYDROGENASE Routine 06/07/2022 8:00 PM CDT HAPTOGLOBIN Routine 06/07/2022 8:00 PM CDT FOLATE Routine 06/07/2022 8:00 PM CDT FERRITIN Routine 06/07/2022 8:00 PM CDT VITAMIN B12 Routine 06/07/2022 8:00 PM CDT OXYHEMOGLOBIN, PULMONARY ARTERY STAT 06/07/2022 7:57 PM CDT HEMOGLOBIN TOTAL, PULMONARY ARTERY STAT 06/07/2022 7:57 PM CDT POTASSIUM, WHOLE BLOOD STAT 7:57 PM CDT APTT STAT 06/07/2022 7:57 PM CDT POCT GLUCOSE DEVICE Routine 06/07/2022 7 :51 PM CDT DIFFERENTIAL AUTO STAT 06/07/2022 7:4 2 PM CDT CBC WITH AUTO DIFFERENTIAL STAT 06/07/2022 7:42 PM CDT DIFFERENTIAL AUTO STAT 06/07/2022 6:2 4 PM CDT BETA-HYDROXYBUTYRATE STAT 06/07/2022 6:24 PM CDT CBC WITH AUTO DIFFERENTIAL STAT 06/07/2022 6:24 PM CDT BLOOD CULTURE Routine 06/07/2022 6:24 PM CDT BLOOD CULTURE Routine 06/07/2022 6:24 PM CDT XR CHEST 1 VIEW ED Urgent/IP Urgent 06/07/2022 6:20 PM CDT BLOOD GAS, ARTERIAL STAT 06/07/2022 5 :20 PM CDT TROPONIN I HIGH-SENSITIVITY STAT 06/07/2022 5:12 PM CDT LACTATE STAT 06/07/2022 5:12 PM CDT CRITICAL RESULT CALLBACK CARDIO CHEM STAT 06/07/2022 5:12 PM CDT HEMOGLOBIN TOTAL, CENTRAL VENOUS Routine 06/07/2022 5:08 PM CDT OXYHEMOGLOBIN, CENTRAL VENOUS Routine 06/07/2022 5:08 PM CDT METHEMOGLOBIN, CENTRAL VENOUS Routine 06/07/2022 5:08 PM CDT CARBOXYHEMOGLOBIN, CENTRAL VENOUS Routine 06/07/2022 5:08 PM CDT EGFR Routine 06/07/2022 5:08 PM CDT TRIGLYCERIDES Routine 06/07/2022 5:08 PM CDT PHOSPHORUS Routine 06/07/2022 5:08 PM CDT MAGNESIUM Routine 06/07/2022 5:08 PM CDT COMPREHENSIVE METABOLIC PANEL Routine 06/07/2022 5:08 PM CDT POCT GLUCOSE DEVICE Routine 06/07/2022 5 :00 PM CDT ECG 12-LEAD STAT 06/07/2022 4:59 PM CDT MARIELLA MAJOR CORONARY Routine 06/07/2022 3: 57 PM CDT CAD (coronary artery disease) Unstable angina (CMS/HCC) (HCC) POCT ACTIVATED CLOTTING TIME, LOW RANGE Routine 06/07/2022 2:15 PM CDT POC BLOOD GAS AND CHEMISTRIES, ARTERIAL Routine 06/07/2022 1:52 PM CDT POCT ACTIVATED CLOTTING TIME, LOW RANGE Routine 06/07/2022 1:49 PM CDT POC BLOOD GAS AND CHEMISTRIES, ARTERIAL Routine 06/07/2022 1:31 PM CDT POCT ACTIVATED CLOTTING TIME, LOW RANGE Routine 06/07/2022 12:47 PM CDT POCT ACTIVATED CLOTTING TIME, LOW RANGE Routine 06/07/2022 12:32 PM CDT POCT GLUCOSE DEVICE Routine 06/07/2022 11:27 AM CDT APTT STAT 06/07/2022 9:59 AM CDT POCT GLUCOSE DEVICE Routine 06/07/2022 7 :59 AM CDT POCT GLUCOSE DEVICE Routine 06/07/2022 4 :17 AM CDT APTT STAT 06/07/2022 4:17 AM CDT POCT GLUCOSE DEVICE Routine 06/06/2022 11:51 PM CDT POCT GLUCOSE DEVICE Routine 06/06/2022 8 :18 PM CDT EGFR Routine 06/06/2022 8:16 PM CDT DIFFERENTIAL AUTO Routine 06/06/2022 8:1 6 PM CDT CBC WITH AUTO DIFFERENTIAL Routine 06/06/2022 8:16 PM CDT PHOSPHORUS Routine 06/06/2022 8:16 PM CDT MAGNESIUM Routine 06/06/2022 8:16 PM CDT COMPREHENSIVE METABOLIC PANEL Routine 06/06/2022 8:16 PM CDT POCT GLUCOSE DEVICE Routine 06/06/2022 5 :53 PM CDT POCT GLUCOSE DEVICE Routine 06/06/2022 11:38 AM CDT APTT STAT 06/06/2022 10:26 AM CDT POCT GLUCOSE DEVICE Routine 06/06/2022 8 :06 AM CDT XR CHEST 1 VIEW Timed 06/06/2022 4:45 AM CDT POCT GLUCOSE DEVICE Routine 06/06/2022 3 :49 AM CDT APTT STAT 06/06/2022 3:41 AM CDT BLOOD GAS, ARTERIAL Timed 06/06/2022 1 :14 AM CDT POCT GLUCOSE DEVICE Routine 06/06/2022 12:01 AM CDT XR ABDOMEN AP 1 VIEW Today 06/05/2022 11:30 PM CDT POCT GLUCOSE DEVICE Routine 06/05/2022 9 :13 PM CDT TROPONIN I HIGH-SENSITIVITY Routine 06/05/2022 8:47 PM CDT EGFR Routine 06/05/2022 8:47 PM CDT DIFFERENTIAL AUTO Routine 06/05/2022 8:4 7 PM CDT URINALYSIS AND REFLEX TO MICROSCOPIC AND CULTURE Routine 06/05/2022 8:47 PM CDT CBC WITH AUTO DIFFERENTIAL Routine 06/05/2022 8:47 PM CDT URINALYSIS, MICROSCOPIC ONLY Routine 06/05/2022 8:47 PM CDT PHOSPHORUS Routine 06/05/2022 8:47 PM CDT MAGNESIUM Routine 06/05/2022 8:47 PM CDT BLOOD GAS, ARTERIAL Timed 06/05/2022 8 :47 PM CDT COMPREHENSIVE METABOLIC PANEL Routine 06/05/2022 8:47 PM CDT CELL DIFFERENTIAL, BODY FLUID Routine 06/05/2022 8:36 PM CDT CELL COUNT W/REFLEX DIFFERENTIAL, BODY FLUID Routine 06/05/2022 8:36 PM CDT AEROBIC AND ANAEROBIC CULTURE AND GRAM STAIN Routine 06/05/2022 8:36 PM CDT LIPASE Routine 06/05/2022 6:39 PM CDT APTT Routine 06/05/2022 6:34 PM CDT US RUQ ED Urgent/IP Urgent 06/05/2022 6:12 PM CDT POCT GLUCOSE DEVICE Routine 06/05/2022 5 :07 PM CDT BLOOD CULTURE Routine 06/05/2022 5:06 PM CDT BLOOD CULTURE Routine 06/05/2022 5:06 PM CDT TROPONIN I HIGH-SENSITIVITY Timed 06/05/2022 4:07 PM CDT LACTATE STAT 06/05/2022 3:54 PM CDT EGFR STAT 06/05/2022 3:54 PM CDT DIFFERENTIAL AUTO STAT 06/05/2022 3:5 4 PM CDT CBC WITH AUTO DIFFERENTIAL STAT 06/05/2022 3:54 PM CDT APTT STAT 06/05/2022 3:54 PM CDT PROTIME-INR STAT 06/05/2022 3:54 PM CDT HC ANTIBODY SCREEN RBC STAT 3:54 PM CDT BASIC METABOLIC PANEL STAT 06/05/2022 3:54 PM CDT POCT GLUCOSE DEVICE Routine 06/05/2022 3 :46 PM CDT EGFR STAT 06/05/2022 3:22 PM CDT POCT LZ-D-GMB-GLU-HCT,WB - ISTAT Routine 06/05/2022 3:22 PM CDT MAGNESIUM STAT 06/05/2022 3:22 PM CDT BASIC METABOLIC PANEL STAT 06/05/2022 3:22 PM CDT TROPONIN I HIGH-SENSITIVITY STAT 06/05/2022 3:21 PM CDT ARTERIAL BLOOD GAS W/LACTATE Routine 06/05/2022 3:17 PM CDT XR CHEST 1 VIEW Critical/Life- Threatening 06/05/2022 3:15 PM CDT ECG 12-LEAD STAT 06/05/2022 2:52 PM CDT POCT GLUCOSE DEVICE Routine 06/05/2022 2 :22 PM CDT RESPIRATORY PATHOGEN PANEL Routine 06/05/2022 1:05 PM CDT LACTATE STAT 06/05/2022 12:10 PM CDT BETA-HYDROXYBUTYRATE STAT 06/05/2022 12:10 PM CDT POCT GLUCOSE DEVICE Routine 06/05/2022 11:23 AM CDT APTT Timed 06/05/2022 11:04 AM CDT POCT GLUCOSE DEVICE Routine 06/05/2022 10:07 AM CDT POCT GLUCOSE DEVICE Routine 06/05/2022 8 :47 AM CDT POCT GLUCOSE DEVICE Routine 06/05/2022 8 :45 AM CDT POCT GLUCOSE DEVICE Routine 06/05/2022 6 :33 AM CDT IR OUTSIDE REFERENCE Routine 06/05/2022 5:59 AM CDT Diagnosis unknown XR TRANSFER OF OUTSIDE FILMS Routine 06/05/2022 5:57 AM CDT Diagnosis unknown US TRANSFER OF OUTSIDE FILMS Routine 06/05/2022 5:56 AM CDT Diagnosis unknown [address] BODY OUTSIDE REFERENCE Routine 06/05/2022 5:54 AM CDT Diagnosis unknown TROPONIN I HIGH-SENSITIVITY 2-HOUR Timed 06/05/2022 4:27 AM CDT APTT STAT 06/05/2022 4:27 AM CDT PROTIME-INR STAT 06/05/2022 4:27 AM CDT TROPONIN I HIGH-SENSITIVITY SERIES (BASELINE, 2HR, 4HR, 6HR) Routine 06/05/2022 2:37 AM CDT POCT GLUCOSE DEVICE Routine 06/04/2022 11:04 PM CDT ECG 12-LEAD Routine 06/04/2022 10:59 PM CDT TROPONIN I HIGH-SENSITIVITY Timed 06/04/2022 10:52 PM CDT CRITICAL RESULT CALLBACK CARDIO CHEM Timed 06/04/2022 10:52 PM CDT EGFR Timed 06/04/2022 10:52 PM CDT DIFFERENTIAL AUTO Timed 06/04/2022 10:52 PM CDT PRO B-TYPE NATRIURETIC PEPTIDE Timed 06/04/2022 10:52 PM CDT BETA-HYDROXYBUTYRATE Timed 06/04/2022 10:52 PM CDT CBC WITH AUTO DIFFERENTIAL Timed 06/04/2022 10:52 PM CDT HEMOGLOBIN A1C Timed 06/04/2022 10:52 PM CDT LIPID PANEL Timed 06/04/2022 10:52 PM CDT COMPREHENSIVE METABOLIC PANEL Timed 06/04/2022 10:52 PM CDT XR CHEST 1 VIEW ED Urgent/IP Urgent 06/04/2022 10:50 PM CDT documented in this encounter Results * (ABNORMAL) POCT glucose (06/29/2022 11:51 AM SENIOR ART DIRECTOR) Glucose, POC 302(H) 70 - 199 mg/dL [facility] Blood 06/29/2022 11:5 1 AM SENIOR ART DIRECTOR 06/29/2022 11:51 AM SENIOR ART DIRECTOR Frank Bowers MD LAB POCT ORDERABLES - DEVICE F inal Result Performing Organization Address City/[facility]/ZIP Co de Phone Number [facility] [place] [address] * (ABNORMAL) POCT glucose (06/29/2022 7:43 AM SENIOR ART DIRECTOR) Glucose, POC 262(H) 70 - 199 mg/dL [facility] Glucose comment 1 Glu2: RN/MD Notified [facility] Blood 06/29/2022 7:43 AM SENIOR ART DIRECTOR 06/29/2022 7:43 AM SENIOR ART DIRECTOR Frank Bowers MD LAB POCT ORDERABLES - DEVICE F inal Result Performing Organization Address [facility] Co de Phone Number [facility] Department [place] [address] * (ABNORMAL) POCT glucose (06/28/2022 8:08 PM SENIOR ART DIRECTOR) Glucose, POC 260(H) 70 - 199 mg/dL [facility] Blood 06/28/2022 8:08 PM SENIOR ART DIRECTOR 06/28/2022 8:08 PM SENIOR ART DIRECTOR Frank Bowers MD LAB POCT ORDERABLES - DEVICE F inal Result Performing Organization Address City/[facility]/ZIP Co de Phone Number [facility] Department [place] [address] * COVID-19 Coronavirus RNA Nasopharyngeal (06/28/2022 3:46 PM SENIOR ART DIRECTOR) COVID-19 RNA Negative Negative [facility] Nasopharyngeal 06/28/2022 3: 46 PM SENIOR ART DIRECTOR 06/28/2022 4:22 PM SENIOR ART DIRECTOR Narrative ALESSANDRA AVILA - 06/28/2022 5:03 PM SENIOR ART DIRECTOR Is the patient experiencing any symptoms consistent with COVID (eg. Fever, cough, shortness of breath)?->No What is the reason for testing?->Placement in post-acute care setting (Rapid) ??Interpretive data: Synonyms for this test include: PCR and NAAT . ??This test is performed using the [employer] Xpert Xpress plus assay. This is a real-time RT-PCR test intended for the qualitative detection of nucleic acid from the SARS-CoV-2. This assay has been reviewed by the FDA for Emergency Use Authorization (EUA). The performance characteristics have been verified by the performing laboratory. Results must be considered in the clinical context and a negative result does not rule out infection. Interpretive data last revised January 19, 2022. ??Interpretive data: Synonyms for this test include: PCR and NAAT . ??This test is performed using the [employer] Xpert Xpress plus assay. This is a real-time RT-PCR test intended for the qualitative detection of nucleic acid from the SARS-CoV-2. This assay has been reviewed by the FDA for Emergency Use Authorization (EUA). The performance characteristics have been verified by the performing laboratory. Results must be considered in the clinical context and a negative result does not rule out infection. Interpretive data last revised January 19, 2022. us Frank Bowers MD LAB MICROBIOLOGY - GENERAL ORD ERABLES Final Result [facility] Department [place] [address] * (ABNORMAL) POCT glucose (06/28/2022 3:33 PM SENIOR ART DIRECTOR) Glucose, POC 299(H) 70 - 199 mg/dL [facility] Blood 06/28/2022 3:33 PM SENIOR ART DIRECTOR 06/28/2022 3:33 PM SENIOR ART DIRECTOR us Frank Bowers MD LAB POCT ORDERABLES - DEVICE F inal Result Performing Organization Address [facility] Phone Number [facility] [place] [address] * (ABNORMAL) POCT glucose (06/28/2022 11:42 AM SENIOR ART DIRECTOR) Glucose, POC 281(H) 70 - 199 mg/dL [facility] Glucose comment 1 Glu2: RN/MD Notified [facility] Blood 06/28/2022 11:4 2 AM SENIOR ART DIRECTOR 06/28/2022 11:42 AM SENIOR ART DIRECTOR us Frank Bowers MD LAB POCT ORDERABLES - DEVICE F inal Result Performing Organization Address [facility] Phone Number [facility] Department [place] [address] * POCT glucose (06/28/2022 9:53 AM SENIOR ART DIRECTOR) Glucose, POC 181 70 - 199 mg/dL [facility] Blood 06/28/2022 9:53 AM SENIOR ART DIRECTOR 06/28/2022 9:53 AM SENIOR ART DIRECTOR us Frank Bowers MD LAB POCT ORDERABLES - DEVICE F inal Result Performing Organization Address [facility] de Phone Number [facility] [place] [address] * POCT glucose (06/28/2022 8:37 AM SENIOR ART DIRECTOR) Glucose, POC 121 70 - 199 mg/dL [facility] Blood 06/28/2022 8:37 AM SENIOR ART DIRECTOR 06/28/2022 8:37 AM SENIOR ART DIRECTOR us Frank Bowers MD LAB POCT ORDERABLES - DEVICE F inal Result Performing Organization Address [facility] [place] [address] * POCT glucose (06/28/2022 8:20 AM SENIOR ART DIRECTOR) Glucose, POC 95 70 - 199 mg/dL [facility] Blood 06/28/2022 8:20 AM SENIOR ART DIRECTOR 06/28/2022 8:20 AM SENIOR ART DIRECTOR us Frank Bowers MD LAB POCT ORDERABLES - DEVICE F inal Result Performing Organization Address [facility] [place] [address] * POCT glucose (06/28/2022 8:02 AM SENIOR ART DIRECTOR) Glucose, POC 75 70 - 199 mg/dL [facility] Blood 06/28/2022 8:02 AM SENIOR ART DIRECTOR 06/28/2022 8:02 AM SENIOR ART DIRECTOR us Frank Bowers MD LAB POCT ORDERABLES - DEVICE F inal Result Performing Organization Address [facility] de Phone Number [facility] [place] [address] * (ABNORMAL) POCT glucose (06/28/2022 7:41 AM SENIOR ART DIRECTOR) Glucose, POC 68(L) 70 - 199 mg/dL [facility] Glucose comment 1 Glu2: RN/MD Notified [facility] Blood 06/28/2022 7:41 AM SENIOR ART DIRECTOR 06/28/2022 7:41 AM SENIOR ART DIRECTOR us Frank Bowers MD LAB POCT ORDERABLES - DEVICE F inal Result Performing Organization Address [facility] Co de Phone Number [facility] [place] [address] * POCT glucose (06/27/2022 7:51 PM SENIOR ART DIRECTOR) Glucose, POC 199 70 - 199 mg/dL [facility] Blood 06/27/2022 7:51 PM SENIOR ART DIRECTOR 06/27/2022 7:51 PM SENIOR ART DIRECTOR Carey East MD LAB POCT ORDERABLES - [place] [address] * POCT glucose (06/27/2022 4:54 PM SENIOR ART DIRECTOR) Glucose, POC 143 70 - 199 mg/dL [facility] Blood 06/27/2022 4:54 PM SENIOR ART DIRECTOR 06/27/2022 4:54 PM SENIOR ART DIRECTOR Carey East MD LAB POCT ORDERABLES - DEVICE Final Result Performing Organization Address City/[facility] [place] [address] * (ABNORMAL) POCT glucose (06/27/2022 11:37 AM SENIOR ART DIRECTOR) Glucose, POC 228(H) 70 - 199 mg/dL [facility] Glucose comment 1 Glu2: RN/MD Notified [facility] Blood 06/27/2022 11:3 7 AM SENIOR ART DIRECTOR 06/27/2022 11:37 AM SENIOR ART DIRECTOR Carey East MD LAB POCT ORDERABLES - DEVICE Final Result Performing Organization Address City/[facility]/[place] [address] * (ABNORMAL) POCT glucose (06/27/2022 7:54 AM SENIOR ART DIRECTOR) Glucose, POC 350(H) 70 - 199 mg/dL [facility] Blood 06/27/2022 7:54 AM SENIOR ART DIRECTOR 06/27/2022 7:54 AM SENIOR ART DIRECTOR Carey East MD LAB POCT ORDERABLES - DEVICE Final Result [facility] Department [place] [address] * (ABNORMAL) eGFR (06/27/2022 3:51 AM SENIOR ART DIRECTOR) [facility] eGFR 6(L) 90 - 130 mL/min/1. 73 m2 [facility] Comment: Interpretive Data Reference Interval [...] interpretive data was last reviewed 2021. Blood 06/27/2022 3:51 AM SENIOR ART DIRECTOR 06/27/2022 4:28 AM SENIOR ART DIRECTOR Carey East MD LAB BLOOD ORDERABLES Final Result Performing Organization Address City/[facility] Co de Phone Number [facility] Department [place] [address] * (ABNORMAL) CBC without differential (06/27/2022 3:51 AM SENIOR ART DIRECTOR) Pathologist [facility] WBC 3.8 3.8 - 9.9 K/cumm [facility] Hgb 7.5(L) 13.0 - 17.5 g/dL [facility] Hct 22.8(L) 38.9 - 50.3 % [facility] Plt 294 150 - 400 K/cumm [facility] MPV 10.0 9.1 - 12.3 fL [facility] RBC 2.49(L) 4.30 - 5.80 M/cumm [facility] MCV 91.6 81.3 - 96.4 fL [facility] MCH 30.1 27.1 - 33.3 pg [facility] MCHC 32.9 32.3 - 35.7 g/dL [facility] RDW CV 17.5(H) 11.1 - 14.9 % [facility] RDW SD 57.9(H) 35.7 - 48.1 fL [facility] NRBC abs 0.00 0.00 - 0.01 K/cumm [facility] Blood 06/27/2022 3:51 AM SENIOR ART DIRECTOR 06/27/2022 4:28 AM SENIOR ART DIRECTOR us Carey East MD LAB BLOOD ORDERABLES Final Result Performing Organization Address City/[facility]/ZIP Co de Phone Number [facility] [place] [address] * (ABNORMAL) Basic metabolic panel (06/27/2022 3:51 AM SENIOR ART DIRECTOR) Pathologist [facility] Sodium 132(L) 135 - 145 mmol/L [facility] Potassium, pl 3.1(L) 3.3 - 4.9 mmol/L [facility] Chloride 89(L) 97 - 110 mmol/L [facility] CO2 26 22 - 32 mmol/L [facility] Anion gap 17(H) 2 - 15 mmol/L [facility] BUN 46(H) 8 - 25 mg/dL [facility] Creatinine 10.21(H) 0.80 - 1.30 mg/dL [facility] Glucose 274(H) 70 - 199 mg/dL [facility] Comment: Interpretive Data Fasting glucose >/= [...] classification and Diagnosis of Diabetes Diabetes Care 2017;40 (Suppl. 1):S11. Current interpretive data was last revised 2017. Calcium 8.4(L) 8.5 - 10.3 mg/dL [facility] Blood 06/27/2022 3:51 AM SENIOR ART DIRECTOR 06/27/2022 4:28 AM SENIOR ART DIRECTOR Carey East MD LAB BLOOD ORDERABLES Final Result Performing Organization Address [facility] Co de Phone Number [facility] Department [place] [address] * (ABNORMAL) POCT glucose (06/27/2022 1:54 AM SENIOR ART DIRECTOR) [facility] Signature Glucose, POC 276(H) 70 - 199 mg/dL [facility] Blood 06/27/2022 1:54 AM SENIOR ART DIRECTOR 06/27/2022 1:54 AM SENIOR ART DIRECTOR Carey East MD LAB POCT ORDERABLES - DEVICE Final Result Performing Organization Address [facility] Co de Phone Number [facility] [place] [address] * POCT glucose (06/26/2022 9:14 PM SENIOR ART DIRECTOR) Glucose, POC 184 70 - 199 mg/dL [facility] Blood 06/26/2022 9:14 PM SENIOR ART DIRECTOR 06/26/2022 9:14 PM SENIOR ART DIRECTOR Carey East MD LAB POCT ORDERABLES - [place] [address] * POCT glucose (06/26/2022 5:53 PM SENIOR ART DIRECTOR) [facility] Signature Glucose, POC 98 70 - 199 mg/dL [facility] Blood 06/26/2022 5:53 PM SENIOR ART DIRECTOR 06/26/2022 5:53 PM SENIOR ART DIRECTOR us Carey East MD LAB POCT ORDERABLES - DEVICE Final Result Performing Organization Address City/[facility]/[place] [address] * (ABNORMAL) POCT glucose (06/26/2022 1:16 PM SENIOR ART DIRECTOR) [facility] Signature Glucose, POC 202(H) 70 - 199 mg/dL [facility] Blood 06/26/2022 1:16 PM SENIOR ART DIRECTOR 06/26/2022 1:16 PM SENIOR ART DIRECTOR us Carey East MD LAB POCT ORDERABLES - DEVICE Final Result Performing Organization Address City/[facility]/[place] [address] * (ABNORMAL) POCT glucose (06/26/2022 11:09 AM SENIOR ART DIRECTOR) Glucose, POC 320(H) 70 - 199 mg/dL [facility] Glucose comment 1 Glu2: RN/MD Notified [facility] Blood 06/26/2022 11:0 9 AM SENIOR ART DIRECTOR 06/26/2022 11:09 AM SENIOR ART DIRECTOR Carey East MD LAB POCT ORDERABLES - DEVICE Final Result Performing Organization Address [facility] de Phone Number [facility] Department [place] [address] * (ABNORMAL) POCT glucose (06/26/2022 9:07 AM SENIOR ART DIRECTOR) [facility] Glucose, POC 400(H) 70 - 199 mg/dL [facility] Blood 06/26/2022 9:07 AM SENIOR ART DIRECTOR 06/26/2022 9:07 AM SENIOR ART DIRECTOR Carey East MD LAB POCT ORDERABLES - DEVICE Final Result Performing Organization Address [facility] de Phone Number [facility] [place] [address] * (ABNORMAL) POCT glucose (06/26/2022 7:25 AM SENIOR ART DIRECTOR) [facility] Glucose, POC 393(H) 70 - 199 mg/dL [facility] Glucose comment 1 Glu2: RN/ Notified [facility] Blood 06/26/2022 7:25 AM SENIOR ART DIRECTOR 06/26/2022 7:25 AM SENIOR ART DIRECTOR Carey East MD LAB POCT ORDERABLES - DEVICE Final Result Performing Organization Address [facility] de Phone Number [facility] [place] [address] * (ABNORMAL) eGFR (06/26/2022 3:23 AM SENIOR ART DIRECTOR) [facility] eGFR 5(L) 90 - 130 mL/min/1. 73 m2 [facility] Comment: Interpretive Data Reference Interval [...] interpretive data was last reviewed 2021. Blood 06/26/2022 3:23 AM SENIOR ART DIRECTOR 06/26/2022 5:00 AM SENIOR ART DIRECTOR Carey East MD LAB BLOOD ORDERABLES Final Result [facility] Department [place] [address] * (ABNORMAL) CBC without differential (06/26/2022 3:23 AM SENIOR ART DIRECTOR) [facility] WBC 4.1 3.8 - 9.9 K/cumm [facility] Hgb 7.6(L) 13.0 - 17.5 g/dL [facility] Hct 23.3(L) 38.9 - 50.3 % [facility] Plt 250 150 - 400 K/cumm [facility] MPV 10.7 9.1 - 12.3 fL [facility] RBC 2.49(L) 4.30 - 5.80 M/cumm [facility] MCV 93.6 81.3 - 96.4 fL [facility] MCH 30.5 27.1 - 33.3 pg [facility] MCHC 32.6 32.3 - 35.7 g/dL [facility] RDW CV 17.8(H) 11.1 - 14.9 % [facility] RDW SD 59.3(H) 35.7 - 48.1 fL [facility] NRBC abs 0.00 0.00 - 0.01 K/cumm [facility] Blood 06/26/2022 3:23 AM SENIOR ART DIRECTOR 06/26/2022 5:00 AM SENIOR ART DIRECTOR us Carey East MD LAB BLOOD ORDERABLES Final Result [facility] Department [place] [address] * (ABNORMAL) Basic metabolic panel (06/26/2022 3:23 AM SENIOR ART DIRECTOR) Sodium 134(L) 135 - 145 mmol/L [facility] Potassium, pl 3.6 3.3 - 4.9 mmol/L [facility] Chloride 91(L) 97 - 110 mmol/L [facility] CO2 26 22 - 32 mmol/L [facility] Anion gap 17(H) 2 - 15 mmol/L [facility] BUN 47(H) 8 - 25 mg/dL [facility] Creatinine 10.28(H) 0.80 - 1.30 mg/dL [facility] Glucose 335(H) 70 - 199 mg/dL [facility] Comment: Interpretive Data Fasting glucose >/= [...] classification and Diagnosis of Diabetes Diabetes Care 2017;40 (Suppl. 1):S11. Current interpretive data was last revised 2017. Calcium 8.5 8.5 - 10.3 mg/dL [facility] Blood 06/26/2022 3:23 AM SENIOR ART DIRECTOR 06/26/2022 5:00 AM SENIOR ART DIRECTOR Carey East MD LAB BLOOD ORDERABLES Final Result Performing Organization Address City/[facility] Co de Phone Number [facility] [place] [address] * (ABNORMAL) POCT glucose (06/26/2022 1:32 AM CDT) Glucose, POC 334(H) 70 - 199 mg/dL [facility] Blood 06/26/2022 1:32 AM CDT 06/26/2022 1:32 AM CDT Carey East MD LAB POCT ORDERABLES - DEVICE Final Result Performing Organization Address [facility] Co de Phone Number [facility] Department [place] [address] * (ABNORMAL) POCT glucose (06/25/2022 9:02 PM CDT) Glucose, POC 257(H) 70 - 199 mg/dL [facility] Blood 06/25/2022 9:02 PM CDT 06/25/2022 9:02 PM CDT Carey East MD LAB POCT ORDERABLES - DEVICE Final Result Performing Organization Address City/[facility] Co de Phone Number [facility] Department [place] [address] * (ABNORMAL) POCT glucose (06/25/2022 6:30 PM CDT) Glucose, POC 223(H) 70 - 199 mg/dL [facility] Blood 06/25/2022 6:30 PM CDT 06/25/2022 6:30 PM CDT Carey East MD LAB POCT ORDERABLES - DEVICE Final Result Performing Organization Address City/[facility] Co de Phone Number [facility] [place] [address] * (ABNORMAL) POCT glucose (06/25/2022 4:21 PM CDT) Glucose, POC 241(H) 70 - 199 mg/dL [facility] Glucose comment 1 Glu2: RN/ Notified [facility] Blood 06/25/2022 4:21 PM CDT 06/25/2022 4:21 PM CDT Carey East MD LAB POCT ORDERABLES - DEVICE Final Result Performing Organization Address [facility] [place] [address] * (ABNORMAL) POCT glucose (06/25/2022 11:42 AM CDT) Glucose, POC 296(H) 70 - 199 mg/dL [facility] Glucose comment 1 Glu2: RN/MD Notified [facility] Blood 06/25/2022 11:4 2 AM CDT 06/25/2022 11:42 AM CDT Carey East MD LAB POCT ORDERABLES - DEVICE Final Result Performing Organization Address City/[facility] Co de Phone Number [facility] [place] [address] * (ABNORMAL) POCT glucose (06/25/2022 7:42 AM CDT) Glucose, POC 363(H) 70 - 199 mg/dL [facility] Glucose comment 1 Glu2: RN/MD Notified [facility] Blood 06/25/2022 7:42 AM CDT 06/25/2022 7:42 AM CDT us Carey East MD LAB POCT ORDERABLES - DEVICE Final Result [facility] Department [place] [address] * (ABNORMAL) eGFR (06/25/2022 4:36 AM CDT) eGFR 6(L) 90 - 130 mL/min/1. 73 m2 [facility] Comment: Interpretive Data Reference Interval [...] interpretive data was last reviewed 2021. Blood 06/25/2022 4:36 AM CDT 06/25/2022 5:15 AM CDT Carey East MD LAB BLOOD ORDERABLES Final Result Performing Organization Address [facility] de Phone Number [facility] [place] [address] * (ABNORMAL) Phosphorus (06/25/2022 4:36 AM CDT) Phosphorus, pl 7.9(H) 2.3 - 4.5 mg/dL [facility] Comment:Reviewed Blood 06/25/2022 4:36 AM CDT 06/25/2022 5:15 AM CDT Carey East MD LAB BLOOD ORDERABLES Final Result Performing Organization Address [facility] de Phone Number [facility] [place] [address] * (ABNORMAL) Basic metabolic panel (06/25/2022 4:36 AM CDT) Pathologist [facility] Sodium 135 135 - 145 mmol/L [facility] Potassium, pl 3.9 3.3 - 4.9 mmol/L [facility] Chloride 93(L) 97 - 110 mmol/L [facility] CO2 28 22 - 32 mmol/L [facility] Anion gap 14 2 - 15 mmol/L [facility] BUN 44(H) 8 - 25 mg/dL [facility] Creatinine 9.57(H) 0.80 - 1.30 mg/dL [facility] Glucose 281(H) 70 - 199 mg/dL [facility] Comment: Interpretive Data Fasting glucose >/= [...] classification and Diagnosis of Diabetes Diabetes Care 2017;40 (Suppl. 1):S11. Current interpretive data was last revised 2017. Calcium 8.6 8.5 - 10.3 mg/dL [facility] Blood 06/25/2022 4:36 AM CDT 06/25/2022 5:15 AM CDT Carey East MD LAB BLOOD ORDERABLES Final Result Performing Organization Address City/[facility]/ZIP Co de Phone Number [facility] [place] [address] * (ABNORMAL) POCT glucose (06/25/2022 1:41 AM CDT) Glucose, POC 265(H) 70 - 199 mg/dL [facility] Blood 06/25/2022 1:41 AM CDT 06/25/2022 1:41 AM CDT Result [facility] Carey East MD LAB POCT ORDERABLES - DEVICE Final Result Performing Organization Address [facility] Co de Phone Number [facility] [place] [address] * (ABNORMAL) POCT glucose (06/24/2022 8:01 PM CDT) Glucose, POC 246(H) 70 - 199 mg/dL [facility] Blood 06/24/2022 8:01 PM CDT 06/24/2022 8:01 PM CDT Result [facility] Carey East MD LAB POCT ORDERABLES - DEVICE Final Result Performing Organization Address City/[facility] Co de Phone Number [facility] [place] [address] * POCT glucose (06/24/2022 4:55 PM CDT) Glucose, POC 185 70 - 199 mg/dL [facility] Blood 06/24/2022 4:55 PM CDT 06/24/2022 4:55 PM CDT Carey East MD LAB POCT ORDERABLES - DEVICE Final Result Performing Organization Address City/[facility] Co de Phone Number [facility] [place] [address] * (ABNORMAL) POCT glucose (06/24/2022 12:53 PM CDT) Glucose, POC 275(H) 70 - 199 mg/dL [facility] Glucose comment 1 Glu2: RN/ Notified [facility] Blood 06/24/2022 12:5 3 PM CDT 06/24/2022 12:53 PM CDT Carey East MD LAB POCT ORDERABLES - DEVICE Final Result Performing Organization Address [facility] Co de Phone Number [facility] [place] [address] * (ABNORMAL) POCT glucose (06/24/2022 11:31 AM CDT) Glucose, POC 346(H) 70 - 199 mg/dL [facility] Glucose comment 1 Glu2: RN/MD Notified [facility] Blood 06/24/2022 11:3 1 AM CDT 06/24/2022 11:31 AM CDT Carey East MD LAB POCT ORDERABLES - DEVICE Final Result Performing Organization Address City/[facility] Co de Phone Number [facility] [place] [address] * (ABNORMAL) POCT glucose (06/24/2022 9:54 AM CDT) Pathologist [facility] Glucose, POC 411(H) 70 - 199 mg/dL [facility] Blood 06/24/2022 9:54 AM CDT 06/24/2022 9:54 AM CDT Carey East MD LAB POCT ORDERABLES - DEVICE Final Result Performing Organization Address [facility] [place] [address] * (ABNORMAL) POCT glucose (06/24/2022 7:33 AM CDT) [facility] Glucose, POC 415(H) 70 - 199 mg/dL [facility] Glucose comment 1 Glu2: RN/MD Notified [facility] Blood 06/24/2022 7:33 AM CDT 06/24/2022 7:33 AM CDT Carey East MD LAB POCT ORDERABLES - DEVICE Final Result Performing Organization Address [facility] [place] [address] * (ABNORMAL) eGFR (06/24/2022 4:10 AM CDT) [facility] eGFR 7(L) 90 - 130 mL/min/1. 73 m2 [facility] Comment: Interpretive Data Reference Interval [...] interpretive data was last reviewed 2021. Blood 06/24/2022 4:10 AM CDT 06/24/2022 4:34 AM CDT us Carey East MD LAB BLOOD ORDERABLES Final Result [facility] Department [place] [address] * (ABNORMAL) CBC without differential (06/24/2022 4:10 AM CDT) WBC 4.3 3.8 - 9.9 K/cumm [facility] Hgb 7.9(L) 13.0 - 17.5 g/dL [facility] Hct 24.0(L) 38.9 - 50.3 % [facility] Plt 206 150 - 400 K/cumm [facility] MPV 10.3 9.1 - 12.3 fL [facility] RBC 2.61(L) 4.30 - 5.80 M/cumm [facility] MCV 92.0 81.3 - 96.4 fL [facility] MCH 30.3 27.1 - 33.3 pg [facility] MCHC 32.9 32.3 - 35.7 g/dL [facility] RDW CV 18.5(H) 11.1 - 14.9 % [facility] RDW SD 58.3(H) 35.7 - 48.1 fL [facility] NRBC abs 0.00 0.00 - 0.01 K/cumm [facility] Blood 06/24/2022 4:10 AM CDT 06/24/2022 4:34 AM CDT Carey East MD LAB BLOOD ORDERABLES Final Result [facility] Department [place] [address] * (ABNORMAL) Basic metabolic panel (06/24/2022 4:10 AM CDT) Sodium 134(L) 135 - 145 mmol/L [facility] Potassium, pl 3.9 3.3 - 4.9 mmol/L [facility] Chloride 94(L) 97 - 110 mmol/L [facility] CO2 25 22 - 32 mmol/L [facility] Anion gap 15 2 - 15 mmol/L [facility] BUN 46(H) 8 - 25 mg/dL [facility] Creatinine 8.83(H) 0.80 - 1.30 mg/dL [facility] Glucose 390(H) 70 - 199 mg/dL [facility] Comment: Interpretive Data Fasting glucose >/= [...] classification and Diagnosis of Diabetes Diabetes Care 2017;40 (Suppl. 1):S11. Current interpretive data was last revised 2017. Calcium 8.5 8.5 - 10.3 mg/dL [facility] Blood 06/24/2022 4:10 AM CDT 06/24/2022 4:34 AM CDT Carey East MD LAB BLOOD ORDERABLES Final Result Performing Organization Address [facility] Co de Phone Number [facility] [place] [address] * (ABNORMAL) POCT glucose (06/24/2022 1:44 AM CDT) Glucose, POC 389(H) 70 - 199 mg/dL [facility] Blood 06/24/2022 1:44 AM CDT 06/24/2022 1:44 AM CDT Carey East MD LAB POCT ORDERABLES - DEVICE Final Result Performing Organization Address [facility] Co de Phone Number [facility] [place] [address] * (ABNORMAL) POCT glucose (06/24/2022 1:26 AM CDT) Glucose, POC 428(H) 70 - 199 mg/dL [facility] Blood 06/24/2022 1:26 AM CDT 06/24/2022 1:26 AM CDT Carey East MD LAB POCT ORDERABLES - DEVICE Final Result Performing Organization Address [facility] Co de Phone Number [facility] Department [place] [address] * (ABNORMAL) POCT glucose (06/23/2022 8:49 PM CDT) Glucose, POC 306(H) 70 - 199 mg/dL [facility] Blood 06/23/2022 8:49 PM CDT 06/23/2022 8:49 PM CDT Carey East MD LAB POCT ORDERABLES - DEVICE Final Result Performing Organization Address City/[facility] Co de Phone Number [facility] [place] [address] * (ABNORMAL) POCT glucose (06/23/2022 7:45 PM CDT) Glucose, POC 284(H) 70 - 199 mg/dL [facility] Blood 06/23/2022 7:45 PM CDT 06/23/2022 7:45 PM CDT Carey East MD LAB POCT ORDERABLES - DEVICE Final Result Performing Organization Address [facility] [place] [address] * POCT glucose (06/23/2022 5:57 PM CDT) Glucose, POC 180 70 - 199 mg/dL [facility] Blood 06/23/2022 5:57 PM CDT 06/23/2022 5:57 PM CDT Carey East MD LAB POCT ORDERABLES - DEVICE Final Result Performing Organization Address [facility] Co de Phone Number [facility] [place] [address] * POCT glucose (06/23/2022 4:48 PM CDT) Glucose, POC 152 70 - 199 mg/dL [facility] Blood 06/23/2022 4:48 PM CDT 06/23/2022 4:48 PM CDT Carey East MD LAB POCT ORDERABLES - DEVICE Final Result Performing Organization Address [facility] Co de Phone Number [facility] [place] [address] * POCT glucose (06/23/2022 3:43 PM CDT) [facility] Glucose, POC 174 70 - 199 mg/dL [facility] Blood 06/23/2022 3:43 PM CDT 06/23/2022 3:43 PM CDT Carey East MD LAB POCT ORDERABLES - DEVICE Final Result Performing Organization Address City/[facility] Co de Phone Number [facility] Department [place] [address] * (ABNORMAL) POCT glucose (06/23/2022 3:01 PM CDT) [facility] Glucose, POC 66(L) 70 - 199 mg/dL [facility] Blood 06/23/2022 3:01 PM CDT 06/23/2022 3:01 PM CDT Carey East MD LAB POCT ORDERABLES - DEVICE Final Result Performing Organization Address [facility] Co de Phone Number [facility] Department [place] [address] * (ABNORMAL) eGFR (06/23/2022 2:35 PM CDT) [facility] eGFR 7(L) 90 - 130 mL/min/1. 73 m2 [facility] Comment: Interpretive Data Reference Interval [...] interpretive data was last reviewed 2021. Blood 06/23/2022 2:35 PM CDT 06/23/2022 3:14 PM CDT us Carey East MD LAB BLOOD ORDERABLES Final Result [facility] One [facility] Department [place] [address] * (ABNORMAL) Basic metabolic panel (06/23/2022 2:35 PM CDT) [facility] Sodium 137 135 - 145 mmol/L [facility] Potassium, pl 3.6 3.3 - 4.9 mmol/L [facility] Chloride 96(L) 97 - 110 mmol/L [facility] CO2 25 22 - 32 mmol/L [facility] Anion gap 16(H) 2 - 15 mmol/L [facility] BUN 45(H) 8 - 25 mg/dL [facility] Creatinine 8.33(H) 0.80 - 1.30 mg/dL [facility] Glucose 55(L) 70 - 199 mg/dL [facility] Comment: Interpretive Data Fasting glucose >/= [...] classification and Diagnosis of Diabetes Diabetes Care 2017;40 (Suppl. 1):S11. Current interpretive data was last revised 2017. Calcium 8.3(L) 8.5 - 10.3 mg/dL [facility] Blood 06/23/2022 2:35 PM CDT 06/23/2022 3:04 PM CDT us Carey East MD LAB BLOOD ORDERABLES Final Result [facility] One [facility] Department [place] [address] * Differential, auto (06/23/2022 2:34 PM CDT) Neutrophil abs 2.7 1.7 - 6.5 K/cumm [facility] Imm gran abs 0.0 0.0 - 0.1 K/cumm [facility] Lymphocyte abs 1.3 0.8 - 3.3 K/cumm [facility] Monocyte abs 0.8 0.2 - 0.8 K/cumm [facility] Eosinophil abs 0.5 0.0 - 0.5 K/cumm [facility] Basophil abs 0.0 0.0 - 0.1 K/cumm [facility] Neutrophil pct 50.3 % [facility] Comment: Interpretive Data Percent cell count reference ranges are not reported, since discordance with absolute values may lead to misinterpretation of CBC data. Current Interpretive Data was last revised on 2017. Imm gran pct 0.6 % [facility] Comment: Interpretive Data Percent cell count reference ranges are not reported, since discordance with absolute values may lead to misinterpretation of CBC data. Current Interpretive Data was last revised on 2017. Lymphocyte pct 23.7 % [facility] Comment: Interpretive Data Percent cell count reference ranges are not reported, since discordance with absolute values may lead to misinterpretation of CBC data. Current Interpretive Data was last revised on 2017. Monocyte pct 15.5 % [facility] Comment: Interpretive Data Percent cell count reference ranges are not reported, since discordance with absolute values may lead to misinterpretation of CBC data. Current Interpretive Data was last revised on 2017. Eosinophil pct 9.2 % [facility] Comment: Interpretive Data Percent cell count reference ranges are not reported, since discordance with absolute values may lead to misinterpretation of CBC data. Current Interpretive Data was last revised on 2017. Basophil pct 0.7 % [facility] Comment: Interpretive Data Percent cell count reference ranges are not reported, since discordance with absolute values may lead to misinterpretation of CBC data. Current Interpretive Data was last revised on 2017. Blood 06/23/2022 2:34 PM CDT 06/23/2022 3:14 PM CDT Carey East MD LAB BLOOD ORDERABLES Final Result [facility] One [facility] Department [place] [address] * (ABNORMAL) CBC with auto differential (06/23/2022 2:34 PM CDT) WBC 5.4 3.8 - 9.9 K/cumm [facility] Hgb 8.2(L) 13.0 - 17.5 g/dL [facility] Comment:Consistent with ita ent history. Hct 25.2(L) 38.9 - 50.3 % [facility] Plt 215 150 - 400 K/cumm [facility] MPV 10.2 9.1 - 12.3 fL [facility] RBC 2.71(L) 4.30 - 5.80 M/cumm [facility] MCV 93.0 81.3 - 96.4 fL [facility] MCH 30.3 27.1 - 33.3 pg [facility] MCHC 32.5 32.3 - 35.7 g/dL [facility] RDW CV 18.7(H) 11.1 - 14.9 % [facility] RDW SD 57.2(H) 35.7 - 48.1 fL [facility] NRBC abs 0.00 0.00 - 0.01 K/cumm [facility] Blood 06/23/2022 2:34 PM CDT 06/23/2022 3:14 PM CDT Carey East MD LAB BLOOD ORDERABLES Final Result Performing Organization Address [facility] de Phone Number [facility] [place] [address] * (ABNORMAL) Troponin I high-sensitivity 2-hour (06/23/2022 2:34 PM CDT) Trop I hs 3,636(C) <=35 ng/L [facility] Comment: Previous critical value noted within 48 hours ago. Interpretive Data For further hscTnI resources including the diagnostic algorithm and an aid in interpretation, copy and paste this link: https://bjhlab.testcatalog.org/show/hsTrop-1 Current Interpretive Data last revised 2020. Trop I hs delta See Comment ng/L [facility] Comment:Inappropriate collec tion time to report a delta. Trop I hs pct delta See Comment % [facility] Comment:Inappropriate collec tion time to report a delta. Trop I hs interp See Comment [facility] Comment:Inappropriate collec tion time to report a delta. Blood 06/23/2022 2:34 PM CDT 06/23/2022 3:14 PM CDT Carey East MD LAB BLOOD ORDERABLES Final Result Performing Organization Address [facility] Co de Phone Number [facility] One [facility] [place] [address] * (ABNORMAL) POCT glucose (06/23/2022 2:25 PM CDT) Glucose, POC 69(L) 70 - 199 mg/dL [facility] Blood 06/23/2022 2:25 PM CDT 06/23/2022 2:25 PM CDT Carey East MD LAB POCT ORDERABLES - DEVICE Final Result Performing Organization Address [facility] de Phone Number [facility] [place] [address] * Critical result callback Cardio chemistry (06/23/2022 2:01 PM CDT) Date Notified [id number] [facility] Time Notified 1454 [facility] Test name Trop I hs base [facility] Called/Read Back Fartun [facility] Credentials RN [facility] Called By karen [facility] Blood 06/23/2022 2:01 PM CDT 06/23/2022 2:16 PM CDT Carey East MD LAB BLOOD ORDERABLES Final Result Performing Organization Address [facility] de Phone Number [facility] [place] [address] * (ABNORMAL) eGFR (06/23/2022 2:01 PM CDT) eGFR 7(L) 90 - 130 mL/min/1. 73 m2 [facility] Comment: Interpretive Data Reference Interval [...] interpretive data was last reviewed 2021. Blood 06/23/2022 2:01 PM CDT 06/23/2022 2:16 PM CDT Carey East MD LAB BLOOD ORDERABLES Final Result Performing Organization Address City/[facility] Co de Phone Number [facility] Department [place] [address] * (ABNORMAL) Troponin I high-sensitivity series (baseline, 2hr, 4hr, 6hr) (06/23/2022 2:01 PM CDT) Trop I hs 3,653(C) <=35 ng/L [facility] Comment: Interpretive Data For further hscTnI resources including the diagnostic algorithm and an aid in interpretation, copy and paste this link: https://bjhlab.testcatalog.org/show/hsTrop-1 Current Interpretive Data last revised 2020. Blood 06/23/2022 2:01 PM CDT 06/23/2022 2:16 PM CDT Carey East MD LAB BLOOD ORDERABLES Final Result Performing Organization Address City/[facility]/ZIP Co de Phone Number [facility] Department [place] [address] * (ABNORMAL) Phosphorus (06/23/2022 2:01 PM CDT) Phosphorus, pl 5.2(H) 2.3 - 4.5 mg/dL [facility] Blood 06/23/2022 2:01 PM CDT 06/23/2022 2:16 PM CDT Carey East MD LAB BLOOD ORDERABLES Final Result Performing Organization Address [facility] Co de Phone Number [facility] [place] [address] * (ABNORMAL) Magnesium (06/23/2022 2:01 PM CDT) [facility] Magnesium 2.8(H) 1.4 - 2.5 mg/dL [facility] Blood 06/23/2022 2:01 PM CDT 06/23/2022 2:16 PM CDT Carey East MD LAB BLOOD ORDERABLES Final Result Performing Organization Address [facility] de Phone Number [facility] [place] [address] * (ABNORMAL) CBC without differential (06/23/2022 2:01 PM CDT) [facility] WBC 5.9 3.8 - 9.9 K/cumm [facility] Hgb 4.6(C) 13.0 - 17.5 g/dL [facility] Comment:Critical result call ed to and read back by MOUSTAPHA RAMSAY(RN) on 06 23 2022 at 1428 to Erin Kidd. Hct 14.2(L) 38.9 - 50.3 % [facility] Plt 253 150 - 400 K/cumm [facility] MPV 10.1 9.1 - 12.3 fL [facility] RBC 1.51(L) 4.30 - 5.80 M/cumm [facility] MCV 94.0 81.3 - 96.4 fL [facility] MCH 30.5 27.1 - 33.3 pg [facility] MCHC 32.4 32.3 - 35.7 g/dL [facility] RDW CV 18.4(H) 11.1 - 14.9 % [facility] RDW SD 58.0(H) 35.7 - 48.1 fL [facility] NRBC abs 0.00 0.00 - 0.01 K/cumm [facility] Blood 06/23/2022 2:01 PM CDT 06/23/2022 2:17 PM CDT Narrative [facility] - 06/23/2022 2:29 PM CDT While on heparin infusion us Carey East MD LAB BLOOD ORDERABLES Final Result [facility] One [facility] Department [place] [address] * (ABNORMAL) Basic metabolic panel (06/23/2022 2:01 PM CDT) Pathologist [facility] Sodium 136 135 - 145 mmol/L [facility] Potassium, pl 3.4 3.3 - 4.9 mmol/L [facility] Chloride 96(L) 97 - 110 mmol/L [facility] CO2 25 22 - 32 mmol/L [facility] Anion gap 15 2 - 15 mmol/L [facility] BUN 45(H) 8 - 25 mg/dL [facility] Creatinine 8.21(H) 0.80 - 1.30 mg/dL [facility] Glucose 60(L) 70 - 199 mg/dL [facility] Comment: Interpretive Data Fasting glucose >/= [...] classification and Diagnosis of Diabetes Diabetes Care 2017;40 (Suppl. 1):S11. Current interpretive data was last revised 2017. Calcium 8.3(L) 8.5 - 10.3 mg/dL [facility] Blood 06/23/2022 2:01 PM CDT 06/23/2022 2:16 PM CDT Carey East MD LAB BLOOD ORDERABLES Final Result Performing Organization Address City/[facility] Co de Phone Number [facility] [place] [address] * POCT glucose (06/23/2022 1:42 PM CDT) Pathologist [facility] Glucose, POC 79 70 - 199 mg/dL [facility] Blood 06/23/2022 1:42 PM CDT 06/23/2022 1:42 PM CDT Carey East MD LAB POCT ORDERABLES - DEVICE Final Result Performing Organization Address [facility] Co de Phone Number [facility] [place] [address] * ECG 12 lead (06/23/2022 1:30 PM CDT) [facility] Ventricular Rate EKG/Min 100 BPM [facility] Atrial Rate 100 BPM [facility] [place]-Interval (MSEC) 182 ms [facility] QRS-Interval (MSEC) 106 ms [facility] QT-Interval (MSEC) 380 ms [facility] QTc 490 ms [facility] R [place] -47 degrees [facility] T [place] 105 degrees [facility] Diagnosis Sinus rhythm with Premature supraventricular complexes Left axis deviation Minimal voltage criteria for LVH, may be normal variant Poor precordial R wave progression consistent with faulty lead placement ,copd, anterior infarction, etc. Anterior infarct (cited on or before 19-JUN-2022) ST & T wave abnormality, consider lateral ischemia Abnormal ECG When compared with ECG of 19-JUN-2022 13:03, Sinus rhythm has replaced Atrial fibrillation ST elevation now present in Inferior leads ST no longer depressed in Lateral leads Confirmed by HUDSON SAL M.D ([id number]) on 06/23/2022 4:28:23 PM [facility] 06/23/2022 1:30 PM CDT 06/23/2022 4:28 PM CDT us Carey East MD ECG ORDERABLES Ann Marie l Result Performing Organization Address [facility]/ZIP Co de Phone Number [facility] * POCT glucose (06/23/2022 1:20 PM CDT) Glucose, POC 88 70 - 199 mg/dL [facility] Blood 06/23/2022 1:20 PM CDT 06/23/2022 1:20 PM CDT us Carey East MD LAB POCT ORDERABLES - DEVICE Final Result Performing Organization Address [facility] Co de Phone Number [facility] Department [place] [address] * POCT glucose (06/23/2022 11:48 AM CDT) Glucose, POC 163 70 - 199 mg/dL [facility] Blood 06/23/2022 11:4 8 AM CDT 06/23/2022 11:48 AM CDT Carey East MD LAB POCT ORDERABLES - DEVICE Final Result Performing Organization Address [facility] Phone Number [facility] Department [place] [address] * (ABNORMAL) POCT glucose (06/23/2022 7:28 AM CDT) Glucose, POC 320(H) 70 - 199 mg/dL [facility] Blood 06/23/2022 7:28 AM CDT 06/23/2022 7:28 AM CDT Catherine Adams MD LAB POCT ORDERABLES - DEVIC E Final Result [facility] Department [place] [address] * (ABNORMAL) Magnesium (06/23/2022 4:21 AM CDT) [facility] Magnesium 2.9(H) 1.4 - 2.5 mg/dL [facility] Blood 06/23/2022 4:21 AM CDT 06/23/2022 5:58 AM CDT us Luiz Lewis DO LAB BLOOD ORDERABLES Final Res ult Performing Organization Address City/[facility] Co de Phone Number [facility] Department [place] [address] * (ABNORMAL) CBC without differential (06/23/2022 4:21 AM CDT) [facility] WBC 4.4 3.8 - 9.9 K/cumm [facility] Hgb 8.1(L) 13.0 - 17.5 g/dL [facility] Hct 25.8(L) 38.9 - 50.3 % [facility] Plt 206 150 - 400 K/cumm [facility] MPV 10.4 9.1 - 12.3 fL [facility] RBC 2.76(L) 4.30 - 5.80 M/cumm [facility] MCV 93.5 81.3 - 96.4 fL [facility] MCH 29.3 27.1 - 33.3 pg [facility] MCHC 31.4(L) 32.3 - 35.7 g/dL [facility] RDW CV 18.8(H) 11.1 - 14.9 % [facility] RDW SD 58.8(H) 35.7 - 48.1 fL [facility] NRBC abs 0.00 0.00 - 0.01 K/cumm [facility] Blood 06/23/2022 4:21 AM CDT 06/23/2022 5:58 AM CDT Narrative [facility] - 06/23/2022 6:08 AM CDT While on heparin infusion us Luiz Lewis DO LAB BLOOD ORDERABLES Final Res ult Performing Organization Address [facility] Co de Phone Number [facility] [place] [address] * (ABNORMAL) POCT glucose (06/23/2022 1:38 AM CDT) Glucose, POC 244(H) 70 - 199 mg/dL [facility] Blood 06/23/2022 1:38 AM CDT 06/23/2022 1:38 AM CDT us Catherine Adams MD LAB POCT ORDERABLES - DEVIC E Final Result Performing Organization Address [facility] Co de Phone Number [facility] Department [place] [address] * (ABNORMAL) Phosphorus (06/22/2022 9:28 PM CDT) Phosphorus, pl 5.8(H) 2.3 - 4.5 mg/dL [facility] Blood 06/22/2022 9:28 PM CDT 06/22/2022 10:27 PM CDT us Catherine Adams MD LAB BLOOD ORDERABLES Final Result Performing Organization Address City/[facility] Co de Phone Number [facility] [place] [address] * POCT glucose (06/22/2022 9:14 PM CDT) Glucose, POC 176 70 - 199 mg/dL [facility] Blood 06/22/2022 9:14 PM CDT 06/22/2022 9:14 PM CDT us Catherine Adams MD LAB POCT ORDERABLES - DEVIC E Final Result [facility] Department [place] [address] * POCT glucose (06/22/2022 5:37 PM CDT) Pathologist [facility] Glucose, POC 88 70 - 199 mg/dL [facility] Blood 06/22/2022 5:37 PM CDT 06/22/2022 5:37 PM CDT Catherine Adams MD LAB POCT ORDERABLES - DEVIC E Final Result Performing Organization Address [facility] de Phone Number [facility] Department [place] [address] * (ABNORMAL) eGFR (06/22/2022 3:21 PM CDT) Pathologist [facility] eGFR 8(L) 90 - 130 mL/min/1. 73 m2 [facility] Comment: Interpretive Data Reference Interval [...] interpretive data was last reviewed 2021. Blood 06/22/2022 3:21 PM CDT 06/22/2022 3:52 PM CDT us Marcelina Lo NP LAB BLOOD ORDERABLES Final Re sult [facility] Department [place] [address] * Differential, auto (06/22/2022 3:21 PM CDT) Neutrophil abs 2.5 1.7 - 6.5 K/cumm [facility] Imm gran abs 0.0 0.0 - 0.1 K/cumm [facility] Lymphocyte abs 1.2 0.8 - 3.3 K/cumm [facility] Monocyte abs 0.8 0.2 - 0.8 K/cumm [facility] Eosinophil abs 0.5 0.0 - 0.5 K/cumm [facility] Basophil abs 0.0 0.0 - 0.1 K/cumm [facility] Neutrophil pct 51.2 % [facility] Comment: Interpretive Data Percent cell count reference ranges are not reported, since discordance with absolute values may lead to misinterpretation of CBC data. Current Interpretive Data was last revised on 2017. Imm gran pct 0.4 % [facility] Comment: Interpretive Data Percent cell count reference ranges are not reported, since discordance with absolute values may lead to misinterpretation of CBC data. Current Interpretive Data was last revised on 2017. Lymphocyte pct 23.3 % [facility] Comment: Interpretive Data Percent cell count reference ranges are not reported, since discordance with absolute values may lead to misinterpretation of CBC data. Current Interpretive Data was last revised on 2017. Monocyte pct 15.4 % [facility] Comment: Interpretive Data Percent cell count reference ranges are not reported, since discordance with absolute values may lead to misinterpretation of CBC data. Current Interpretive Data was last revised on 2017. Eosinophil pct 9.3 % [facility] Comment: Interpretive Data Percent cell count reference ranges are not reported, since discordance with absolute values may lead to misinterpretation of CBC data. Current Interpretive Data was last revised on 2017. Basophil pct 0.4 % [facility] Comment: Interpretive Data Percent cell count reference ranges are not reported, since discordance with absolute values may lead to misinterpretation of CBC data. Current Interpretive Data was last revised on 2017. Blood 06/22/2022 3:21 PM CDT 06/22/2022 3:52 PM CDT us Catherine Adams MD LAB BLOOD ORDERABLES Final Result [facility] Department [place] [address] * (ABNORMAL) CBC with auto differential (06/22/2022 3:21 PM CDT) WBC 4.9 3.8 - 9.9 K/cumm [facility] Hgb 7.8(L) 13.0 - 17.5 g/dL [facility] Hct 24.1(L) 38.9 - 50.3 % [facility] Plt 183 150 - 400 K/cumm [facility] MPV 10.2 9.1 - 12.3 fL [facility] RBC 2.54(L) 4.30 - 5.80 M/cumm [facility] MCV 94.9 81.3 - 96.4 fL [facility] MCH 30.7 27.1 - 33.3 pg [facility] MCHC 32.4 32.3 - 35.7 g/dL [facility] RDW CV 18.5(H) 11.1 - 14.9 % [facility] RDW SD 58.2(H) 35.7 - 48.1 fL [facility] NRBC abs 0.00 0.00 - 0.01 K/cumm [facility] Blood 06/22/2022 3:21 PM CDT 06/22/2022 3:52 PM CDT us Catherine Adams MD LAB BLOOD ORDERABLES Final Result Performing Organization Address City/[facility]/ZIP Co de Phone Number [facility] [place] [address] * (ABNORMAL) Magnesium (06/22/2022 3:21 PM CDT) Pathologist [facility] Magnesium 2.9(H) 1.4 - 2.5 mg/dL [facility] Blood 06/22/2022 3:21 PM CDT 06/22/2022 3:52 PM CDT us Marcelina Lo NP LAB BLOOD ORDERABLES Final Re sult Performing Organization Address [facility] Co de Phone Number [facility] Department [place] [address] * (ABNORMAL) Comprehensive metabolic panel (06/22/2022 3:21 PM CDT) Pathologist [facility] Sodium 138 135 - 145 mmol/L [facility] Potassium, pl 3.7 3.3 - 4.9 mmol/L [facility] Chloride 99 97 - 110 mmol/L [facility] CO2 27 22 - 32 mmol/L [facility] Anion gap 12 2 - 15 mmol/L [facility] BUN 42(H) 8 - 25 mg/dL [facility] Creatinine 7.25(H) 0.80 - 1.30 mg/dL [facility] Glucose 103 70 - 199 mg/dL [facility] Comment: Interpretive Data Fasting glucose >/= [...] classification and Diagnosis of Diabetes Diabetes Care 2017;40 (Suppl. 1):S11. Current interpretive data was last revised 2017. Calcium 8.6 8.5 - 10.3 mg/dL [facility] Bilirubin, total 0.4 0.1 - 1.2 mg/dL [facility] Protein, pl 6.1(L) 6.5 - 8.5 g/dL [facility] Albumin 2.9(L) 3.5 - 5.0 g/dL [facility] Alk phos 112 40 - 130 Units/L [facility] ALT 31 7 - 55 Units/L [facility] AST 41 10 - 50 Units/L [facility] Blood 06/22/2022 3:21 PM CDT 06/22/2022 3:52 PM CDT Marcelina Lo CHIEF AIRLINE RADIO OPERATOR LAB BLOOD ORDERABLES Final Re sult Performing Organization Address [facility] Co de Phone Number [facility] Department [place] [address] * POCT glucose (06/22/2022 11:38 AM CDT) Glucose, POC 162 70 - 199 mg/dL [facility] Blood 06/22/2022 11:3 8 AM CDT 06/22/2022 11:38 AM CDT Catherine Adams MD LAB POCT ORDERABLES - DEVIC E Final Result [facility] Department [place] [address] * POCT glucose (06/22/2022 10:46 AM CDT) Glucose, POC 197 70 - 199 mg/dL [facility] Blood 06/22/2022 10:4 6 AM CDT 06/22/2022 10:46 AM CDT us Catherine Adams MD LAB POCT ORDERABLES - DEVIC E Final Result Performing Organization Address City/[facility] Co de Phone Number [facility] [place] [address] * (ABNORMAL) POCT glucose (06/22/2022 9:07 AM CDT) Glucose, POC 313(H) 70 - 199 mg/dL [facility] Blood 06/22/2022 9:07 AM CDT 06/22/2022 9:07 AM CDT Catherine Adams MD LAB POCT ORDERABLES - DEVIC E Final Result Performing Organization Address [facility] Co de Phone Number [facility] [place] [address] * (ABNORMAL) POCT glucose (06/22/2022 7:40 AM CDT) Glucose, POC 364(H) 70 - 199 mg/dL [facility] Blood 06/22/2022 7:40 AM CDT 06/22/2022 7:40 AM CDT Catherine Adams MD LAB POCT ORDERABLES - DEVIC E Final Result Performing Organization Address [facility] Co de Phone Number [facility] Department [place] [address] * (ABNORMAL) POCT glucose (06/22/2022 7:38 AM CDT) Glucose, POC 318(H) 70 - 199 mg/dL [facility] Blood 06/22/2022 7:38 AM CDT 06/22/2022 7:38 AM CDT Catherine Adams MD LAB POCT ORDERABLES - DEVIC E Final Result Performing Organization Address City/[facility] Co de Phone Number [facility] Department [place] [address] * (ABNORMAL) POCT glucose (06/22/2022 5:54 AM CDT) [facility] Glucose, POC 370(H) 70 - 199 mg/dL [facility] Blood 06/22/2022 5:54 AM CDT 06/22/2022 5:54 AM CDT Catherine Adams MD LAB POCT ORDERABLES - DEVIC E Final Result Performing Organization Address [facility] Co de Phone Number [facility] Department [place] [address] * (ABNORMAL) eGFR (06/21/2022 9:55 PM CDT) [facility] eGFR 10(L) 90 - 130 mL/min/1. 73 m2 [facility] Comment: Interpretive Data Reference Interval [...] interpretive data was last reviewed 2021. Blood 06/21/2022 9:55 PM CDT 06/21/2022 10:14 PM CDT us Marcelina Lo CHIEF [employer]LINE RADIO OPERATOR LAB BLOOD ORDERABLES Final Re sult [facility] One [facility] Department [place] [address] * Differential, auto (06/21/2022 9:55 PM CDT) Pathologist [facility] Neutrophil abs 3.7 1.7 - 6.5 K/cumm [facility] Imm gran abs 0.0 0.0 - 0.1 K/cumm [facility] Lymphocyte abs 1.0 0.8 - 3.3 K/cumm [facility] Monocyte abs 0.8 0.2 - 0.8 K/cumm [facility] Eosinophil abs 0.3 0.0 - 0.5 K/cumm [facility] Basophil abs 0.0 0.0 - 0.1 K/cumm [facility] Neutrophil pct 63.3 % [facility] Comment: Interpretive Data Percent cell count reference ranges are not reported, since discordance with absolute values may lead to misinterpretation of CBC data. Current Interpretive Data was last revised on 2017. Imm gran pct 0.5 % [facility] Comment: Interpretive Data Percent cell count reference ranges are not reported, since discordance with absolute values may lead to misinterpretation of CBC data. Current Interpretive Data was last revised on 2017. Lymphocyte pct 16.3 % [facility] Comment: Interpretive Data Percent cell count reference ranges are not reported, since discordance with absolute values may lead to misinterpretation of CBC data. Current Interpretive Data was last revised on 2017. Monocyte pct 14.3 % [facility] Comment: Interpretive Data Percent cell count reference ranges are not reported, since discordance with absolute values may lead to misinterpretation of CBC data. Current Interpretive Data was last revised on 2017. Eosinophil pct 5.1 % [facility] Comment: Interpretive Data Percent cell count reference ranges are not reported, since discordance with absolute values may lead to misinterpretation of CBC data. Current Interpretive Data was last revised on 2017. Basophil pct 0.5 % [facility] Comment: Interpretive Data Percent cell count reference ranges are not reported, since discordance with absolute values may lead to misinterpretation of CBC data. Current Interpretive Data was last revised on 2017. Blood 06/21/2022 9:55 PM CDT 06/21/2022 10:14 PM CDT Catherine Adams MD LAB BLOOD ORDERABLES Final Result Performing Organization Address City/[facility]/ZIP Co de Phone Number [facility] Department [place] [address] * (ABNORMAL) POCT glucose (06/21/2022 9:55 PM CDT) [facility] Glucose, POC 272(H) 70 - 199 mg/dL [facility] Blood 06/21/2022 9:55 PM CDT 06/21/2022 9:55 PM CDT Catherine Adams MD LAB POCT ORDERABLES - DEVIC E Final Result Performing Organization Address City/[facility]/ZIP Co de Phone Number [facility] Department [place] [address] * (ABNORMAL) CBC with auto differential (06/21/2022 9:55 PM CDT) [facility] WBC 5.9 3.8 - 9.9 K/cumm [facility] Hgb 7.5(L) 13.0 - 17.5 g/dL [facility] Hct 23.6(L) 38.9 - 50.3 % [facility] Plt 174 150 - 400 K/cumm [facility] MPV 9.7 9.1 - 12.3 fL [facility] RBC 2.51(L) 4.30 - 5.80 M/cumm [facility] MCV 94.0 81.3 - 96.4 fL [facility] MCH 29.9 27.1 - 33.3 pg [facility] MCHC 31.8(L) 32.3 - 35.7 g/dL [facility] RDW CV 18.9(H) 11.1 - 14.9 % [facility] RDW SD 60.0(H) 35.7 - 48.1 fL [facility] NRBC abs 0.02(H) 0.00 - 0.01 K/cumm [facility] Blood 06/21/2022 9:55 PM CDT 06/21/2022 10:14 PM CDT Catherine Adams MD LAB BLOOD ORDERABLES Final Result Performing Organization Address [facility] de Phone Number [facility] Department [place] [address] * Lactate (06/21/2022 9:55 PM CDT) Lactate 0.8 0.7 - 2.0 mmol/L [facility] Blood 06/21/2022 9:55 PM CDT 06/21/2022 10:14 PM CDT Catherine Adams MD LAB BLOOD ORDERABLES Final Result Performing Organization Address [facility] de Phone Number [facility] Department [place] [address] * (ABNORMAL) Triglycerides (06/21/2022 9:55 PM CDT) Triglycerides 183(H) <=149 mg/dL [facility] Comment: Interpretive Data Ages < or [...] Interpretive Data was last revised on 2018. Blood 06/21/2022 9:55 PM CDT 06/21/2022 10:15 PM CDT Narrative [facility] - 06/21/2022 10:45 PM CDT While on propofol infusion. us Catherine Adams MD LAB BLOOD ORDERABLES Final Result Performing Organization Address [facility] Co de Phone Number [facility] Department of Laboratories [place], [place] [id number] * (ABNORMAL) Phosphorus (06/21/2022 9:55 PM CDT) Pathologist [facility] Phosphorus, pl 4.8(H) 2.3 - 4.5 mg/dL [facility] Blood 06/21/2022 9:55 PM CDT 06/21/2022 10:15 PM CDT us Marcelina Lo CHIEF AIRLINE RADIO OPERATOR LAB BLOOD ORDERABLES Final Re sult Performing Organization Address City/[facility]/ZIP Co de Phone Number [facility] Department of Laboratories [place], [place] [id number] * (ABNORMAL) Lipase (06/21/2022 9:55 PM CDT) Lipase 227(H) 10 - 99 Units/L [facility] Blood 06/21/2022 9:55 PM CDT 06/21/2022 10:15 PM CDT Marcelina Lo CHIEF AIRLINE RADIO OPERATOR LAB BLOOD ORDERABLES Final Re sult Performing Organization Address [facility] de Phone Number [facility] Department [place] [address] * (ABNORMAL) Magnesium (06/21/2022 9:55 PM CDT) Pathologist [facility] Magnesium 2.8(H) 1.4 - 2.5 mg/dL [facility] Blood 06/21/2022 9:55 PM CDT 06/21/2022 10:14 PM CDT Marcelina Lo CHIEF AIRLINE RADIO OPERATOR LAB BLOOD ORDERABLES Final Re sult Performing Organization Address [facility] de Phone Number [facility] Department [place] [address] * (ABNORMAL) Comprehensive metabolic panel (06/21/2022 9:55 PM CDT) [facility] Sodium 136 135 - 145 mmol/L [facility] Potassium, pl 4.0 3.3 - 4.9 mmol/L [facility] Chloride 98 97 - 110 mmol/L [facility] CO2 24 22 - 32 mmol/L [facility] Anion gap 14 2 - 15 mmol/L [facility] BUN 41(H) 8 - 25 mg/dL [facility] Creatinine 6.03(H) 0.80 - 1.30 mg/dL [facility] Glucose 276(H) 70 - 199 mg/dL [facility] Comment: Interpretive Data Fasting glucose >/= [...] classification and Diagnosis of Diabetes Diabetes Care 2017;40 (Suppl. 1):S11. Current interpretive data was last revised 2017. Calcium 8.4(L) 8.5 - 10.3 mg/dL [facility] Bilirubin, total 0.5 0.1 - 1.2 mg/dL [facility] Protein, pl 5.9(L) 6.5 - 8.5 g/dL [facility] Albumin 2.7(L) 3.5 - 5.0 g/dL [facility] Alk phos 111 40 - 130 Units/L [facility] ALT 32 7 - 55 Units/L [facility] AST 48 10 - 50 Units/L [facility] Blood 06/21/2022 9:55 PM CDT 06/21/2022 10:14 PM CDT us Marcelina Lo CHIEF AIRLINE RADIO OPERATOR LAB BLOOD ORDERABLES Final Re sult [facility] Department [place] [address] * (ABNORMAL) Differential, auto (06/21/2022 5:23 PM CDT) Neutrophil abs 4.1 1.7 - 6.5 K/cumm [facility] Imm gran abs 0.1 0.0 - 0.1 K/cumm [facility] Lymphocyte abs 1.2 0.8 - 3.3 K/cumm [facility] Monocyte abs 0.9(H) 0.2 - 0.8 K/cumm [facility] Eosinophil abs 0.3 0.0 - 0.5 K/cumm [facility] Basophil abs 0.0 0.0 - 0.1 K/cumm [facility] Neutrophil pct 62.4 % [facility] Comment: Interpretive Data Percent cell count reference ranges are not reported, since discordance with absolute values may lead to misinterpretation of CBC data. Current Interpretive Data was last revised on 2017. Imm gran pct 0.8 % [facility] Comment: Interpretive Data Percent cell count reference ranges are not reported, since discordance with absolute values may lead to misinterpretation of CBC data. Current Interpretive Data was last revised on 2017. Lymphocyte pct 18.5 % [facility] Comment: Interpretive Data Percent cell count reference ranges are not reported, since discordance with absolute values may lead to misinterpretation of CBC data. Current Interpretive Data was last revised on 2017. Monocyte pct 13.7 % [facility] Comment: Interpretive Data Percent cell count reference ranges are not reported, since discordance with absolute values may lead to misinterpretation of CBC data. Current Interpretive Data was last revised on 2017. Eosinophil pct 4.0 % [facility] Comment: Interpretive Data Percent cell count reference ranges are not reported, since discordance with absolute values may lead to misinterpretation of CBC data. Current Interpretive Data was last revised on 2017. Basophil pct 0.6 % [facility] Comment: Interpretive Data Percent cell count reference ranges are not reported, since discordance with absolute values may lead to misinterpretation of CBC data. Current Interpretive Data was last revised on 2017. Blood 06/21/2022 5:23 PM CDT 06/21/2022 5:45 PM CDT Catherine Adams MD LAB BLOOD ORDERABLES Final Result [facility] Department [place] [address] * (ABNORMAL) CBC with auto differential (06/21/2022 5:23 PM CDT) WBC 6.5 3.8 - 9.9 K/cumm [facility] Hgb 7.5(L) 13.0 - 17.5 g/dL [facility] Hct 23.0(L) 38.9 - 50.3 % [facility] Plt 177 150 - 400 K/cumm [facility] MPV 9.8 9.1 - 12.3 fL [facility] RBC 2.44(L) 4.30 - 5.80 M/cumm [facility] MCV 94.3 81.3 - 96.4 fL [facility] MCH 30.7 27.1 - 33.3 pg [facility] MCHC 32.6 32.3 - 35.7 g/dL [facility] RDW CV 19.0(H) 11.1 - 14.9 % [facility] RDW SD 60.9(H) 35.7 - 48.1 fL [facility] NRBC abs 0.00 0.00 - 0.01 K/cumm [facility] Blood 06/21/2022 5:23 PM CDT 06/21/2022 5:45 PM CDT Catherine Adams MD LAB BLOOD ORDERABLES Final Result Performing Organization Address City/[facility]/ZIP Co de Phone Number [facility] Department [place] [address] * POCT glucose (06/21/2022 4:08 PM CDT) Glucose, POC 138 70 - 199 mg/dL [facility] Blood 06/21/2022 4:08 PM CDT 06/21/2022 4:08 PM CDT Catherine Adams MD LAB POCT ORDERABLES - DEVIC E Final Result Performing Organization Address City/[facility]/ZIP Co de Phone Number [facility] Department [place] [address] * FL Modified Barium Swallow W Video (06/21/2022 2:06 PM CDT) Anatomical Region Laterality Modality Head and Neck N/A Computed Radiogr aphy 06/21/2022 3:20 PM CDT Impressions 06/21/2022 3:40 PM CDT The swallowing mechanism is abnormal; see above comments. Please refer to the Speech Pathology procedure note for safe swallow recommendations as well as additional information regarding the oral-pharyngeal swallow function, plan of care, and recommended follow up. Dictated by: Adam Aiken M.D. The radiology attending physician has personally reviewed this study, and had reviewed and/or edited this written report and agrees with it. Electronically signed by: Félix Chahal M.D. Narrative 06/21/2022 3:40 PM CDT EXAMINATION: MODIFIED BARIUM SWALLOW HISTORY: Concern for dysphagia. TECHNIQUE: This procedure was completed in conjunction with a Speech Language Pathologist. The patient was given barium of multiple different consistencies to swallow. Video fluoroscopy was employed during the exam. FINDINGS: Oral-pharyngeal swallow function is mildly impaired. Penetration: Yes There is penetration of thin liquids and nectar thick liquids. Penetration is sensed. The penetrated material ??is cleared. Aspiration: No Residue:Yes There is oral-pharyngeal residue of purees and solids. Residue is not sensed. The residual material ??is cleared. Other comments: None Procedure Note Félix Chahal MD - 06/21/2022 EXAMINATION: MODIFIED BARIUM SWALLOW HISTORY: Concern for dysphagia. TECHNIQUE: This procedure was completed in conjunction with a Speech Language Pathologist. The patient was given barium of multiple different consistencies to swallow. Video fluoroscopy was employed during the exam. FINDINGS: Oral-pharyngeal swallow function is mildly impaired. Penetration: Yes There is penetration of thin liquids and nectar thick liquids. Penetration is sensed. The penetrated material is cleared. Aspiration: No Residue:Yes There is oral-pharyngeal residue of purees and solids. Residue is not sensed. The residual material is cleared. Other comments: None IMPRESSION: The swallowing mechanism is abnormal; see above comments. Please refer to the Speech Pathology procedure note for safe swallow recommendations as well as additional information regarding the oral-pharyngeal swallow function, plan of care, and recommended follow up. Dictated by: Adam Aiken M.D. The radiology attending physician has personally reviewed this study, and had reviewed and/or edited this written report and agrees with it. Electronically signed by: Félix Chahal M.D. Catherine Adams MD IMG FLUOROSCOPY PROCEDURES Final Result * LOCKSTITCH HEMMER Evaluate and Treat (VFSS) (06/21/2022 2:02 PM CDT) Narrative Aleida Lambert, LILIAN - 06/21/2022 2:02 PM CDT Aleida Lambert, LOCKSTITCH HEMMER ? 06/21/2022 ??4:21 PM Speech-Language Pathology: Videofluoroscopic Study of Swallow (VFSS/MBS) HPI/PMH CHF, CAD s/p multiple interventions, DM1, ESRD on PD, GERD, BEN CPAP transfer from OSH on 06/05. ACT for hypoxemia and chest pressure. S/p complex PCI with impella. Also has cholecystitis. Respiratory/Intubation Status: 06/07-06/19. Now 2L Imaging: CT 06/20 c/f bleeding: Esophagus appears normal...Minimal bibasilar dependent atelectasis. No pleural effusion or pneumothorax. No noncontrast CT evidence of bleeding Precautions: fall Current Diet Order: NPO Baseline Feeding Status: no dysphagia reported General Information Adelia Garvin Jr. 06/21/22 LOCKSTITCH HEMMER Received On: 06/21/22 General Observations: presents alert, easily followed instructions Reason for Referral:dysphagia/aspiration Did not c/o pain, RN present Patient Stated Goal/Comments: did not state Clinical Impression & Professional Recommendations Diet Solids Recommendation: Dysphagia diet-Phase 2 Diet Liquids Recommendations: Thin/regular Recommended Form of Medications: Crushed, With puree Compensatory Strategies/Modifications: Alternate solids and liquids, Swallow 2 times per bite, Small bites, Single sips Postural Recommendations: Upright 90 degrees, Upright 30 min after meal Assistance with feeding/swallowing: One to one assist with meals Specialty Instructions: assist with brushing teeth 2-3x/day Overall Clinical Impression/Additional Information: 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 Delayed swallow initiation and incomplete epiglottic inversion result in occasional laryngeal penetration of thin liquid (x3 of 7 trials) and of nectar-thick liquid x1 that is ejected from the laryngeal vestibule with completion of the swallow (deep laryngeal penetration to the level of the anterior VF x1 with thin liquid in absence of pharyngeal residue of pudding/solid). Incomplete epiglottic inversion, decreased tongue base retraction, and general pharyngeal weakness resulted in vallecular residue of pudding and solid that fills the vallecular space, with no sensation (pt denied sensation of residue and did not reflexively re-swallow). Cued repeat swallows and thin liquid wash cleared vallecular residue of pudding, and moved vallecular residue of solid to pyriform where it was finally cleared with >1 cued repeat swallows. No aspiration. Assessment Details & Results Purpose and Procedure of Videofluoroscopic Study of Swallow: Videofluoroscopic Study of Swallow completed to assess oropharyngeal swallow function and safety/efficiency of the swallow so that diet recommendations can be made. This test is completed in conjunction with Radiology. Results of this test are indicative of performance at the time of the exam. Standard procedure is in lateral view at 90 degrees. Consistencies Administered: Thin liquids (via spoon & straw), Paterson thickened liquids (via spoon & straw), Purees, Honey thickened liquids via spoon, Solids. Patient took large sips requiring more than 1 swallow even when cued for small sip. Administered consistencies contain barium product. Thin Liquids: Laryngeal Penetration: Present Aspiration Present: No Penetration Aspiration Scale-Thin: 4-Material enters the airway, contacts the vocal folds and is ejected from the airway Paterson Thickened Liquids: Laryngeal Penetration: Present Aspiration Present: No Penetration Aspiration Scale-Paterson: 2-Material enters the airway, remains above the vocal folds and is ejected from the airway Honey Thickened Liquids: Laryngeal Penetration: None Aspiration Present: No Penetration Aspiration Scale-Honey: 1-Material does not enter airway Purees: Laryngeal Penetration: None Aspiration Present: No Penetration Aspiration Scale-Puree: 1-Material does not enter airway Solids: Laryngeal Penetration: None Aspiration Present: No Penetration Aspiration Scale-Solids: 1-Material does not enter airway MBSImp: MBSImp Results: Lip closure : 0-No labial escape Tongue Control with Bolus Hold: 0-Cohesive bolus between tongue to palatal seal Bolus Preparation/Mastication : 1-Slow prolonged chewing/mashing with complete re-collection Bolus Transport/Lingual Motion : 2-Slowed tongue motion Oral Residue: 2-Residue collection on oral structures Initiation of Pharyngeal Swallow : 2-Bolus head at posterior laryngeal surface of epiglottis Laryngeal Elevation : 1-Partial superior movement of thyroid cartilage with partial approximation of arytenoids to epiglottic petiole Anterior Hyoid Excursion: 1-Partial anterior movement Epiglottic Movement: 1-Partial inversion Laryngeal Vestibular Closure: 1-Incomplete, narrow column of air/contrast in laryngeal vestibule Pharyngeal Stripping Wave: 1-Present but diminished Pharyngeal Contraction (AP view only): Not assessed, No AP view Pharyngoesophageal Segment Opening : 0-Complete distention and complete duration, no obstruction of flow Tongue Base Retraction : 2-Narrow column of contrast or air between tongue base and posterior pharyngeal wall Pharyngeal Residue : 2-Collection of residue within or on pharyngeal structures Esophageal Clearance (upright position): Not assessed, No AP view NOMS: National Outcomes Measurement System: Level 5 Dysphagia Outcome and Severity Scale: Dysphagia Outcomes and Severity Scale: 5 Mild dysphagia Levels 1 & 2 on the MARK indicate need for nonoral nutrition. Treatment Treatment was not provided this date. Please reference care plan for treatment goals and details, if indicated. Plan [facility] Frequency of Services: 2-3x/wk [facility] Recommendation (Add'l Services): Inpatient Rehab Facility Next Visit Plan: treatment/therapy Additional Referrals: none at this time Discharge Summary Statement If this is the last swallow therapy visit, this serves as the discharge summary. us Catherine Adams MD L[facility]STITCH HEMMER ORDERABLES Final Resul t * POCT glucose (06/21/2022 12:00 PM CDT) Pathologist [facility] Glucose, POC 157 70 - 199 mg/dL [facility] Blood 06/21/2022 12:0 0 PM CDT 06/21/2022 12:00 PM CDT us Catherine Adams MD LAB POCT ORDERABLES - DEVIC E Final Result [facility] Department [place] [address] * (ABNORMAL) eGFR (06/21/2022 8:38 AM CDT) eGFR 12(L) 90 - 130 mL/min/1. 73 m2 [facility] Comment: Interpretive Data Reference Interval [...] interpretive data was last reviewed 2021. Blood 06/21/2022 8:38 AM CDT 06/21/2022 9:17 AM CDT us Marcelina Lo CHIEF AIRLINE RADIO OPERATOR LAB BLOOD ORDERABLES Final Re sult [facility] Department [place] [address] * Differential, auto (06/21/2022 8:38 AM CDT) Neutrophil abs 3.3 1.7 - 6.5 K/cumm [facility] Imm gran abs 0.0 0.0 - 0.1 K/cumm [facility] Lymphocyte abs 1.2 0.8 - 3.3 K/cumm [facility] Monocyte abs 0.7 0.2 - 0.8 K/cumm [facility] Eosinophil abs 0.1 0.0 - 0.5 K/cumm [facility] Basophil abs 0.1 0.0 - 0.1 K/cumm [facility] Neutrophil pct 60.8 % [facility] Comment: Interpretive Data Percent cell count reference ranges are not reported, since discordance with absolute values may lead to misinterpretation of CBC data. Current Interpretive Data was last revised on 2017. Imm gran pct 0.7 % [facility] Comment: Interpretive Data Percent cell count reference ranges are not reported, since discordance with absolute values may lead to misinterpretation of CBC data. Current Interpretive Data was last revised on 2017. Lymphocyte pct 22.0 % [facility] Comment: Interpretive Data Percent cell count reference ranges are not reported, since discordance with absolute values may lead to misinterpretation of CBC data. Current Interpretive Data was last revised on 2017. Monocyte pct 13.7 % [facility] Comment: Interpretive Data Percent cell count reference ranges are not reported, since discordance with absolute values may lead to misinterpretation of CBC data. Current Interpretive Data was last revised on 2017. Eosinophil pct 1.9 % [facility] Comment: Interpretive Data Percent cell count reference ranges are not reported, since discordance with absolute values may lead to misinterpretation of CBC data. Current Interpretive Data was last revised on 2017. Basophil pct 0.9 % [facility] Comment: Interpretive Data Percent cell count reference ranges are not reported, since discordance with absolute values may lead to misinterpretation of CBC data. Current Interpretive Data was last revised on 2017. Blood 06/21/2022 8:38 AM CDT 06/21/2022 9:10 AM CDT us Catherine Adams MD LAB BLOOD ORDERABLES Final Result [facility] Department [place] [address] * (ABNORMAL) CBC with auto differential (06/21/2022 8:38 AM CDT) WBC 5.4 3.8 - 9.9 K/cumm [facility] Hgb 9.0(L) 13.0 - 17.5 g/dL [facility] Hct 27.8(L) 38.9 - 50.3 % [facility] Plt 171 150 - 400 K/cumm [facility] MPV 9.8 9.1 - 12.3 fL [facility] RBC 3.01(L) 4.30 - 5.80 M/cumm [facility] MCV 92.4 81.3 - 96.4 fL [facility] MCH 29.9 27.1 - 33.3 pg [facility] MCHC 32.4 32.3 - 35.7 g/dL [facility] RDW CV 19.9(H) 11.1 - 14.9 % [facility] RDW SD 63.2(H) 35.7 - 48.1 fL [facility] NRBC abs 0.02(H) 0.00 - 0.01 K/cumm [facility] Blood 06/21/2022 8:38 AM CDT 06/21/2022 9:10 AM CDT us Catherine Adams MD LAB BLOOD ORDERABLES Final Result Performing Organization Address [facility] Co de Phone Number [facility] Department [place] [address] * (ABNORMAL) Magnesium (06/21/2022 8:38 AM CDT) Pathologist [facility] Magnesium 2.8(H) 1.4 - 2.5 mg/dL [facility] Blood 06/21/2022 8:38 AM CDT 06/21/2022 9:10 AM CDT us Marcelina Lo NP LAB BLOOD ORDERABLES Final Re sult [facility] [place] [address] * (ABNORMAL) Comprehensive metabolic panel (06/21/2022 8:38 AM CDT) Sodium 139 135 - 145 mmol/L [facility] Potassium, pl 4.0 3.3 - 4.9 mmol/L [facility] Chloride 101 97 - 110 mmol/L [facility] CO2 27 22 - 32 mmol/L [facility] Anion gap 11 2 - 15 mmol/L [facility] BUN 36(H) 8 - 25 mg/dL [facility] Creatinine 5.26(H) 0.80 - 1.30 mg/dL [facility] Glucose 199 70 - 199 mg/dL [facility] Comment: Interpretive Data Fasting glucose >/= [...] classification and Diagnosis of Diabetes Diabetes Care 2017;40 (Suppl. 1):S11. Current interpretive data was last revised 2017. Calcium 8.4(L) 8.5 - 10.3 mg/dL [facility] Bilirubin, total 0.4 0.1 - 1.2 mg/dL [facility] Protein, pl 5.6(L) 6.5 - 8.5 g/dL [facility] Albumin 2.7(L) 3.5 - 5.0 g/dL [facility] Alk phos 115 40 - 130 Units/L [facility] ALT 28 7 - 55 Units/L [facility] AST 52(H) 10 - 50 Units/L [facility] Blood 06/21/2022 8:38 AM CDT 06/21/2022 9:10 AM CDT us Marcelina Lo CHIEF AIRLINE RADIO OPERATOR LAB BLOOD ORDERABLES Final Re sult [facility] Department [place] [address] * POCT glucose (06/21/2022 8:34 AM CDT) [facility] Signature Glucose, POC 199 70 - 199 mg/dL [facility] Blood 06/21/2022 8:34 AM CDT 06/21/2022 8:34 AM CDT us Catherine Adams MD LAB POCT ORDERABLES - DEVIC E Final Result Performing Organization Address City/[facility] Co de Phone Number [facility] [place] [address] * (ABNORMAL) POCT glucose (06/21/2022 5:30 AM CDT) Glucose, POC 270(H) 70 - 199 mg/dL [facility] Blood 06/21/2022 5:30 AM CDT 06/21/2022 5:30 AM CDT Catherine Adams MD LAB POCT ORDERABLES - DEVIC E Final Result Performing Organization Address [facility] de Phone Number [facility] [place] [address] * (ABNORMAL) POCT glucose (06/21/2022 12:22 AM CDT) Glucose, POC 231(H) 70 - 199 mg/dL [facility] Blood 06/21/2022 12:2 2 AM CDT 06/21/2022 12:22 AM CDT Catherine Adams MD LAB POCT ORDERABLES - DEVIC E Final Result Performing Organization Address City/[facility] Co de Phone Number [facility] [place] [address] * Differential, auto (06/21/2022 12:21 AM CDT) Neutrophil abs 4.4 1.7 - 6.5 K/cumm [facility] Imm gran abs 0.1 0.0 - 0.1 K/cumm [facility] Lymphocyte abs 1.2 0.8 - 3.3 K/cumm [facility] Monocyte abs 0.8 0.2 - 0.8 K/cumm [facility] Eosinophil abs 0.1 0.0 - 0.5 K/cumm [facility] Basophil abs 0.0 0.0 - 0.1 K/cumm [facility] Neutrophil pct 67.5 % [facility] Comment: Interpretive Data Percent cell count reference ranges are not reported, since discordance with absolute values may lead to misinterpretation of CBC data. Current Interpretive Data was last revised on 2017. Imm gran pct 0.9 % [facility] Comment: Interpretive Data Percent cell count reference ranges are not reported, since discordance with absolute values may lead to misinterpretation of CBC data. Current Interpretive Data was last revised on 2017. Lymphocyte pct 18.3 % [facility] Comment: Interpretive Data Percent cell count reference ranges are not reported, since discordance with absolute values may lead to misinterpretation of CBC data. Current Interpretive Data was last revised on 2017. Monocyte pct 11.7 % [facility] Comment: Interpretive Data Percent cell count reference ranges are not reported, since discordance with absolute values may lead to misinterpretation of CBC data. Current Interpretive Data was last revised on 2017. Eosinophil pct 1.1 % [facility] Comment: Interpretive Data Percent cell count reference ranges are not reported, since discordance with absolute values may lead to misinterpretation of CBC data. Current Interpretive Data was last revised on 2017. Basophil pct 0.5 % [facility] Comment: Interpretive Data Percent cell count reference ranges are not reported, since discordance with absolute values may lead to misinterpretation of CBC data. Current Interpretive Data was last revised on 2017. Blood 06/21/2022 12:2 1 AM CDT 06/21/2022 12:50 AM CDT us Catherine Adams MD LAB BLOOD ORDERABLES Final Result [facility] Department [place] [address] * (ABNORMAL) CBC with auto differential (06/21/2022 12:21 AM CDT) WBC 6.5 3.8 - 9.9 K/cumm [facility] Hgb 7.4(L) 13.0 - 17.5 g/dL [facility] Hct 23.6(L) 38.9 - 50.3 % [facility] Plt 179 150 - 400 K/cumm [facility] MPV 9.8 9.1 - 12.3 fL [facility] RBC 2.49(L) 4.30 - 5.80 M/cumm [facility] MCV 94.8 81.3 - 96.4 fL [facility] MCH 29.7 27.1 - 33.3 pg [facility] MCHC 31.4(L) 32.3 - 35.7 g/dL [facility] RDW CV 20.0(H) 11.1 - 14.9 % [facility] RDW SD 66.2(H) 35.7 - 48.1 fL [facility] NRBC abs 0.04(H) 0.00 - 0.01 K/cumm [facility] Blood 06/21/2022 12:2 1 AM CDT 06/21/2022 12:50 AM CDT Catherine Adams MD LAB BLOOD ORDERABLES Final Result [facility] [place] [address] * POCT glucose (06/20/2022 7:49 PM CDT) Glucose, POC 177 70 - 199 mg/dL [facility] Blood 06/20/2022 7:49 PM CDT 06/20/2022 7:49 PM CDT Catherine Adams MD LAB POCT ORDERABLES - DEVIC E Final Result [facility] Department [place] [address] * (ABNORMAL) eGFR (06/20/2022 7:46 PM CDT) eGFR 18(L) 90 - 130 mL/min/1. 73 m2 [facility] Comment: Interpretive Data Reference Interval [...] interpretive data was last reviewed 2021. Blood 06/20/2022 7:46 PM CDT 06/20/2022 8:15 PM CDT us Marcelina Lo CHIEF AIRLINE RADIO OPERATOR LAB BLOOD ORDERABLES Final Re sult [facility] [place] [address] * Lactate (06/20/2022 7:46 PM CDT) Pathologist [facility] Lactate 1.0 0.7 - 2.0 mmol/L [facility] Blood 06/20/2022 7:46 PM CDT 06/20/2022 8:14 PM CDT Catherine Adams MD LAB BLOOD ORDERABLES Final Result Performing Organization Address [facility] Co de Phone Number [facility] Department [place] [address] * (ABNORMAL) Triglycerides (06/20/2022 7:46 PM CDT) Triglycerides 181(H) <=149 mg/dL [facility] Comment: Interpretive Data Ages < or [...] Interpretive Data was last revised on 2018. Blood 06/20/2022 7:46 PM CDT 06/20/2022 8:14 PM CDT Narrative [facility] - 06/20/2022 8:51 PM CDT While on propofol infusion. Catherine Adams MD LAB BLOOD ORDERABLES Final Result Performing Organization Address [facility] de Phone Number [facility] Department [place] [address] * Phosphorus (06/20/2022 7:46 PM CDT) Pathologist [facility] Phosphorus, pl 2.9 2.3 - 4.5 mg/dL [facility] Comment:Repeated and Verifie d Blood 06/20/2022 7:46 PM CDT 06/20/2022 8:14 PM CDT Marcelina Lo CHIEF AIRLINE RADIO OPERATOR LAB BLOOD ORDERABLES Final Re sult Performing Organization Address City/[facility] Co de Phone Number [facility] [place] [address] * (ABNORMAL) Beta-hydroxybutyrate (06/20/2022 7:46 PM CDT) [facility] Beta-Hydroxybut yrate 2.5(H) 0.0 - 0.5 mmol/L [facility] Blood 06/20/2022 7:46 PM CDT 06/20/2022 8:59 PM CDT Marcelina Lo CHIEF AIRLINE RADIO OPERATOR LAB BLOOD ORDERABLES Final Re sult Performing Organization Address [facility] Co de Phone Number [facility] [place] [address] * Lipase (06/20/2022 7:46 PM CDT) Pathologist [facility] Lipase 88 10 - 99 Units/L [facility] Blood 06/20/2022 7:46 PM CDT 06/20/2022 8:14 PM CDT Marcelina Lo CHIEF AIRLINE RADIO OPERATOR LAB BLOOD ORDERABLES Final Re sult Performing Organization Address [facility] Co de Phone Number [facility] [place] [address] * (ABNORMAL) Magnesium (06/20/2022 7:46 PM CDT) Pathologist [facility] Magnesium 2.6(H) 1.4 - 2.5 mg/dL [facility] Blood 06/20/2022 7:46 PM CDT 06/20/2022 8:15 PM CDT us Marcelina Lo CHIEF AIRLINE RADIO OPERATOR LAB BLOOD ORDERABLES Final Re sult [facility] Department [place] [address] * (ABNORMAL) Comprehensive metabolic panel (06/20/2022 7:46 PM CDT) Sodium 137 135 - 145 mmol/L [facility] Potassium, pl 4.9 3.3 - 4.9 mmol/L [facility] Chloride 102 97 - 110 mmol/L [facility] CO2 23 22 - 32 mmol/L [facility] Anion gap 12 2 - 15 mmol/L [facility] BUN 26(H) 8 - 25 mg/dL [facility] Creatinine 3.87(H) 0.80 - 1.30 mg/dL [facility] Glucose 188 70 - 199 mg/dL [facility] Comment: Interpretive Data Fasting glucose >/= [...] classification and Diagnosis of Diabetes Diabetes Care 2017;40 (Suppl. 1):S11. Current interpretive data was last revised 2017. Calcium 8.5 8.5 - 10.3 mg/dL [facility] Bilirubin, total 0.6 0.1 - 1.2 mg/dL [facility] Protein, pl 5.7(L) 6.5 - 8.5 g/dL [facility] Albumin 2.7(L) 3.5 - 5.0 g/dL [facility] Alk phos 123 40 - 130 Units/L [facility] ALT 29 7 - 55 Units/L [facility] AST 61(H) 10 - 50 Units/L [facility] Blood 06/20/2022 7:46 PM CDT 06/20/2022 8:15 PM CDT us Marcelina Lo NP LAB BLOOD ORDERABLES Final Re sult [facility] Department [place] [address] * (ABNORMAL) Differential, auto (06/20/2022 6:18 PM CDT) Neutrophil abs 6.2 1.7 - 6.5 K/cumm [facility] Imm gran abs 0.1 0.0 - 0.1 K/cumm [facility] Lymphocyte abs 0.9 0.8 - 3.3 K/cumm [facility] Monocyte abs 1.1(H) 0.2 - 0.8 K/cumm [facility] Eosinophil abs 0.0 0.0 - 0.5 K/cumm [facility] Basophil abs 0.0 0.0 - 0.1 K/cumm [facility] Neutrophil pct 74.5 % [facility] Comment: Interpretive Data Percent cell count reference ranges are not reported, since discordance with absolute values may lead to misinterpretation of CBC data. Current Interpretive Data was last revised on 2017. Imm gran pct 0.7 % [facility] Comment: Interpretive Data Percent cell count reference ranges are not reported, since discordance with absolute values may lead to misinterpretation of CBC data. Current Interpretive Data was last revised on 2017. Lymphocyte pct 11.0 % [facility] Comment: Interpretive Data Percent cell count reference ranges are not reported, since discordance with absolute values may lead to misinterpretation of CBC data. Current Interpretive Data was last revised on 2017. Monocyte pct 12.8 % [facility] Comment: Interpretive Data Percent cell count reference ranges are not reported, since discordance with absolute values may lead to misinterpretation of CBC data. Current Interpretive Data was last revised on 2017. Eosinophil pct 0.5 % [facility] Comment: Interpretive Data Percent cell count reference ranges are not reported, since discordance with absolute values may lead to misinterpretation of CBC data. Current Interpretive Data was last revised on 2017. Basophil pct 0.5 % [facility] Comment: Interpretive Data Percent cell count reference ranges are not reported, since discordance with absolute values may lead to misinterpretation of CBC data. Current Interpretive Data was last revised on 2017. Blood 06/20/2022 6:18 PM CDT 06/20/2022 7:08 PM CDT us Tyra De La Torre MD LAB BLOOD ORDERABLES Final Resu lt [facility] Department [place] [address] * (ABNORMAL) CBC with auto differential (06/20/2022 6:18 PM CDT) WBC 8.3 3.8 - 9.9 K/cumm [facility] Hgb 7.7(L) 13.0 - 17.5 g/dL [facility] Hct 23.7(L) 38.9 - 50.3 % [facility] Plt 188 150 - 400 K/cumm [facility] MPV 9.8 9.1 - 12.3 fL [facility] RBC 2.55(L) 4.30 - 5.80 M/cumm [facility] MCV 92.9 81.3 - 96.4 fL [facility] MCH 30.2 27.1 - 33.3 pg [facility] MCHC 32.5 32.3 - 35.7 g/dL [facility] RDW CV 20.1(H) 11.1 - 14.9 % [facility] RDW SD 64.8(H) 35.7 - 48.1 fL [facility] NRBC abs 0.04(H) 0.00 - 0.01 K/cumm [facility] Blood 06/20/2022 6:18 PM CDT 06/20/2022 7:08 PM CDT us Tyra De La Torre MD LAB BLOOD ORDERABLES Final Resu lt [facility] Department [place] [address] * POCT glucose (06/20/2022 3:53 PM CDT) Pathologist [facility] Glucose, POC 124 70 - 199 mg/dL [facility] Blood 06/20/2022 3:53 PM CDT 06/20/2022 3:53 PM CDT Catherine Adams MD LAB POCT ORDERABLES - DEVIC E Final Result Performing Organization Address [facility] Co de Phone Number [facility] [place] [address] * (ABNORMAL) Differential, auto (06/20/2022 3:22 PM CDT) [facility] Neutrophil abs 4.7 1.7 - 6.5 K/cumm [facility] Imm gran abs 0.1 0.0 - 0.1 K/cumm [facility] Lymphocyte abs 1.4 0.8 - 3.3 K/cumm [facility] Monocyte abs 1.0(H) 0.2 - 0.8 K/cumm [facility] Eosinophil abs 0.0 0.0 - 0.5 K/cumm [facility] Basophil abs 0.1 0.0 - 0.1 K/cumm [facility] Neutrophil pct 64.5 % [facility] Comment: Interpretive Data Percent cell count reference ranges are not reported, since discordance with absolute values may lead to misinterpretation of CBC data. Current Interpretive Data was last revised on 2017. Imm gran pct 0.7 % [facility] Comment: Interpretive Data Percent cell count reference ranges are not reported, since discordance with absolute values may lead to misinterpretation of CBC data. Current Interpretive Data was last revised on 2017. Lymphocyte pct 19.4 % [facility] Comment: Interpretive Data Percent cell count reference ranges are not reported, since discordance with absolute values may lead to misinterpretation of CBC data. Current Interpretive Data was last revised on 2017. Monocyte pct 14.1 % [facility] Comment: Interpretive Data Percent cell count reference ranges are not reported, since discordance with absolute values may lead to misinterpretation of CBC data. Current Interpretive Data was last revised on 2017. Eosinophil pct 0.6 % [facility] Comment: Interpretive Data Percent cell count reference ranges are not reported, since discordance with absolute values may lead to misinterpretation of CBC data. Current Interpretive Data was last revised on 2017. Basophil pct 0.7 % [facility] Comment: Interpretive Data Percent cell count reference ranges are not reported, since discordance with absolute values may lead to misinterpretation of CBC data. Current Interpretive Data was last revised on 2017. Blood 06/20/2022 3:22 PM CDT 06/20/2022 3:55 PM CDT us Catherine Adams MD LAB BLOOD ORDERABLES Final Result [facility] Department [place] [address] * (ABNORMAL) CBC with auto differential (06/20/2022 3:22 PM CDT) WBC 7.2 3.8 - 9.9 K/cumm [facility] Hgb 8.0(L) 13.0 - 17.5 g/dL [facility] Hct 24.5(L) 38.9 - 50.3 % [facility] Plt 207 150 - 400 K/cumm [facility] MPV 9.8 9.1 - 12.3 fL [facility] RBC 2.67(L) 4.30 - 5.80 M/cumm [facility] MCV 91.8 81.3 - 96.4 fL [facility] Comment:MCV delta due to zoie arent blood transfusion. MCH 30.0 27.1 - 33.3 pg [facility] MCHC 32.7 32.3 - 35.7 g/dL [facility] RDW CV 19.9(H) 11.1 - 14.9 % [facility] RDW SD 63.6(H) 35.7 - 48.1 fL [facility] NRBC abs 0.03(H) 0.00 - 0.01 K/cumm [facility] Blood 06/20/2022 3:22 PM CDT 06/20/2022 3:55 PM CDT us Catherine Adams MD LAB BLOOD ORDERABLES Final Result [facility] Department [place] [address] * CT Chest Abdomen Pelvis WO Contrast (06/20/2022 2:15 PM CDT) Anatomical Region Laterality Modality Body N/A Computed Tomogra phy 06/20/2022 2:57 PM CDT Impressions 06/20/2022 3:46 PM CDT 1. No noncontrast CT evidence of bleeding or hematoma in the chest, abdomen, or pelvis. 2. Severe atherosclerotic calcification of the coronary arteries and aortic valve. Dictated by: Booker Ambriz MD The radiology attending physician has personally reviewed this study, and had reviewed and/or edited this written report and agrees with it. Electronically signed by: Saurav Emerson M.D. Narrative 06/20/2022 3:46 PM CDT EXAMINATION: ??Computed tomography of the chest, abdomen and pelvis without intravenous contrast HISTORY: Concern for bleeding TECHNIQUE: ??Transaxial computed tomographic images of the chest, abdomen and pelvis were obtained without intravenous contrast according to the standard protocol. COMPARISON: CT chest abdomen pelvis 06/11/2022 FINDINGS: ?? Chest: Right internal jugular approach central venous catheter terminates in the right atrium. Esophagus appears normal and there is an intraluminal gastric tube that terminates in the proximal duodenum. Minimal bibasilar dependent atelectasis. No pleural effusion or pneumothorax. Central airways are normal in caliber. No supraclavicular, axillary, mediastinal, or hilar lymphadenopathy. The main pulmonary artery size is at the upper limits of normal which can be seen in the setting of left ventricular failure. There is enlargement of the left ventricle. No pericardial effusion. The intraventricular septum is seen which can be seen in the setting of anemia. Severe atherosclerotic calcification of multiple coronary arteries, and the aortic valve. The thoracic aorta is normal in course and caliber. No intramuscular hematoma. Abdomen/Pelvis: There is focal fat deposition in segment 4A of the liver near the falciform ligament. There are gallstones in the gallbladder neck, and there is diffuse hyperattenuation of the gallbladder which can be seen with sludge. Noncontrast appearance of the spleen, the pancreas and bilateral adrenal glands is normal. There is a exophytic left renal cyst. Noncontrast appearance of the right kidney is normal. The urinary bladder is distended. Prostate is present. There is calcification of bilateral vas deferens. A rectal tube is present. Noncontrast appearance of the stomach, small bowel, and colon is normal. A Tenckhoff catheter is in place with its tip in the intraperitoneal space in the left lower quadrant. Small volume ascites. No pneumoperitoneum. Abdominal aorta is normal in course and caliber with moderate atherosclerotic calcification. No intra-abdominal or pelvic lymphadenopathy. No suspicious osseous lesion. No intraperitoneal, retroperitoneal, or intramuscular hematoma. There is periumbilical soft tissue edema. Procedure Note Saurav Emerson MD - 06/20/2022 EXAMINATION: Computed tomography of the chest, abdomen and pelvis without intravenous contrast HISTORY: Concern for bleeding TECHNIQUE: Transaxial computed tomographic images of the chest, abdomen and pelvis were obtained without intravenous contrast according to the standard protocol. COMPARISON: CT chest abdomen pelvis 06/11/2022 FINDINGS: Chest: Right internal jugular approach central venous catheter terminates in the right atrium. Esophagus appears normal and there is an intraluminal gastric tube that terminates in the proximal duodenum. Minimal bibasilar dependent atelectasis. No pleural effusion or pneumothorax. Central airways are normal in caliber. No supraclavicular, axillary, mediastinal, or hilar lymphadenopathy. The main pulmonary artery size is at the upper limits of normal which can be seen in the setting of left ventricular failure. There is enlargement of the left ventricle. No pericardial effusion. The intraventricular septum is seen which can be seen in the setting of anemia. Severe atherosclerotic calcification of multiple coronary arteries, and the aortic valve. The thoracic aorta is normal in course and caliber. No intramuscular hematoma. Abdomen/Pelvis: There is focal fat deposition in segment 4A of the liver near the falciform ligament. There are gallstones in the gallbladder neck, and there is diffuse hyperattenuation of the gallbladder which can be seen with sludge. Noncontrast appearance of the spleen, the pancreas and bilateral adrenal glands is normal. There is a exophytic left renal cyst. Noncontrast appearance of the right kidney is normal. The urinary bladder is distended. Prostate is present. There is calcification of bilateral vas deferens. A rectal tube is present. Noncontrast appearance of the stomach, small bowel, and colon is normal. A Tenckhoff catheter is in place with its tip in the intraperitoneal space in the left lower quadrant. Small volume ascites. No pneumoperitoneum. Abdominal aorta is normal in course and caliber with moderate atherosclerotic calcification. No intra-abdominal or pelvic lymphadenopathy. No suspicious osseous lesion. No intraperitoneal, retroperitoneal, or intramuscular hematoma. There is periumbilical soft tissue edema. IMPRESSION: 1. No noncontrast CT evidence of bleeding or hematoma in the chest, abdomen, or pelvis. 2. Severe atherosclerotic calcification of the coronary arteries and aortic valve. Dictated by: Booker Ambriz MD The radiology attending physician has personally reviewed this study, and had reviewed and/or edited this written report and agrees with it. Electronically signed by: Saurav Emerson M.D. us Catherine Adams MD IMG CT PROCEDURES Final Res ult * Transfuse RBC (06/20/2022 12:05 PM CDT) Blood us Catherine Adams MD BLOOD TRANSFUSION ORDERABLE S Final Result [facility] Department [place] [address] * Transfuse RBC: 1 Units (06/20/2022 12:05 PM CDT) Blood us Catherine Adams MD BLOOD TRANSFUSION ORDERABLE S Final Result * Prepare RBC: 1 Units (06/20/2022 9:35 AM CDT) Product code [id number] [facility] Unit Number [id number] 3-* [facility] Product Blood Type APOS [facility] Dispense Status RETURNED [facility] Blood 06/20/2022 9:35 AM CDT 06/20/2022 9:34 AM CDT Narrative [facility] - 06/20/2022 1:20 PM CDT Are special requirements needed? (All products are leukoreduced and CMV- safe)- >No Date required:-[id number] LRRBC # of [id number] Reasons:-Hgb <7 g/dL} us Catherine Adams MD BLOOD BANK PRODUCT ORDERABL ES Final Result [facility] Department [place] [address] * (ABNORMAL) eGFR (06/20/2022 8:24 AM CDT) Pathologist [facility] eGFR 21(L) 90 - 130 mL/min/1. 73 m2 [facility] Comment: Interpretive Data Reference Interval [...] interpretive data was last reviewed 2021. Blood 06/20/2022 8:24 AM CDT 06/20/2022 8:48 AM CDT us Marcelina Lo CHIEF AIRLINE RADIO OPERATOR LAB BLOOD ORDERABLES Final Re sult [facility] Department [place] [address] * (ABNORMAL) Differential, auto (06/20/2022 8:24 AM CDT) Neutrophil abs 5.1 1.7 - 6.5 K/cumm [facility] Imm gran abs 0.1 0.0 - 0.1 K/cumm [facility] Lymphocyte abs 1.6 0.8 - 3.3 K/cumm [facility] Monocyte abs 1.3(H) 0.2 - 0.8 K/cumm [facility] Eosinophil abs 0.1 0.0 - 0.5 K/cumm [facility] Basophil abs 0.1 0.0 - 0.1 K/cumm [facility] Neutrophil pct 62.3 % [facility] Comment: Interpretive Data Percent cell count reference ranges are not reported, since discordance with absolute values may lead to misinterpretation of CBC data. Current Interpretive Data was last revised on 2017. Imm gran pct 0.7 % [facility] Comment: Interpretive Data Percent cell count reference ranges are not reported, since discordance with absolute values may lead to misinterpretation of CBC data. Current Interpretive Data was last revised on 2017. Lymphocyte pct 19.9 % [facility] Comment: Interpretive Data Percent cell count reference ranges are not reported, since discordance with absolute values may lead to misinterpretation of CBC data. Current Interpretive Data was last revised on 2017. Monocyte pct 15.9 % [facility] Comment: Interpretive Data Percent cell count reference ranges are not reported, since discordance with absolute values may lead to misinterpretation of CBC data. Current Interpretive Data was last revised on 2017. Eosinophil pct 0.6 % [facility] Comment: Interpretive Data Percent cell count reference ranges are not reported, since discordance with absolute values may lead to misinterpretation of CBC data. Current Interpretive Data was last revised on 2017. Basophil pct 0.6 % [facility] Comment: Interpretive Data Percent cell count reference ranges are not reported, since discordance with absolute values may lead to misinterpretation of CBC data. Current Interpretive Data was last revised on 2017. Blood 06/20/2022 8:24 AM CDT 06/20/2022 8:48 AM CDT Catherine Adams MD LAB BLOOD ORDERABLES Final Result [facility] Department [place] [address] * (ABNORMAL) CBC with auto differential (06/20/2022 8:24 AM CDT) WBC 8.3 3.8 - 9.9 K/cumm [facility] Hgb 6.6(L) 13.0 - 17.5 g/dL [facility] Hct 20.7(L) 38.9 - 50.3 % [facility] Plt 271 150 - 400 K/cumm [facility] MPV 9.6 9.1 - 12.3 fL [facility] RBC 2.12(L) 4.30 - 5.80 M/cumm [facility] MCV 97.6(H) 81.3 - 96.4 fL [facility] MCH 31.1 27.1 - 33.3 pg [facility] MCHC 31.9(L) 32.3 - 35.7 g/dL [facility] RDW CV 17.4(H) 11.1 - 14.9 % [facility] RDW SD 59.6(H) 35.7 - 48.1 fL [facility] NRBC abs 0.00 0.00 - 0.01 K/cumm [facility] Blood 06/20/2022 8:24 AM CDT 06/20/2022 8:48 AM CDT Catherine Adams MD LAB BLOOD ORDERABLES Final Result Performing Organization Address City/[facility]/ZIP Co de Phone Number [facility] [place] [address] * (ABNORMAL) Magnesium (06/20/2022 8:24 AM CDT) Pathologist [facility] Magnesium 2.7(H) 1.4 - 2.5 mg/dL [facility] Blood 06/20/2022 8:24 AM CDT 06/20/2022 8:48 AM CDT us Marcelina Lo NP LAB BLOOD ORDERABLES Final Re sult Performing Organization Address [facility] Co de Phone Number [facility] [place] [address] * (ABNORMAL) Comprehensive metabolic panel (06/20/2022 8:24 AM CDT) Pathologist [facility] Sodium 140 135 - 145 mmol/L [facility] Potassium, pl 4.9 3.3 - 4.9 mmol/L [facility] Chloride 104 97 - 110 mmol/L [facility] CO2 25 22 - 32 mmol/L [facility] Anion gap 11 2 - 15 mmol/L [facility] BUN 25 8 - 25 mg/dL [facility] Creatinine 3.43(H) 0.80 - 1.30 mg/dL [facility] Glucose 144 70 - 199 mg/dL [facility] Comment: Interpretive Data Fasting glucose >/= [...] classification and Diagnosis of Diabetes Diabetes Care 2017;40 (Suppl. 1):S11. Current interpretive data was last revised 2017. Calcium 8.4(L) 8.5 - 10.3 mg/dL [facility] Bilirubin, total 0.6 0.1 - 1.2 mg/dL [facility] Protein, pl 6.2(L) 6.5 - 8.5 g/dL [facility] Albumin 2.8(L) 3.5 - 5.0 g/dL [facility] Alk phos 143(H) 40 - 130 Units/L [facility] ALT 35 7 - 55 Units/L [facility] AST 79(H) 10 - 50 Units/L [facility] Blood 06/20/2022 8:24 AM CDT 06/20/2022 8:48 AM CDT us Marcelina Lo CHIEF AIRLINE RADIO OPERATOR LAB BLOOD ORDERABLES Final Re sult Performing Organization Address City/[facility]/ZIP Co de Phone Number [facility] [place] [address] * POCT glucose (06/20/2022 8:21 AM CDT) [facility] Signature Glucose, POC 152 70 - 199 mg/dL [facility] Blood 06/20/2022 8:21 AM CDT 06/20/2022 8:21 AM CDT us Catherine Adams MD LAB POCT ORDERABLES - DEVIC E Final Result Performing Organization Address City/[facility]/ZIP Co de Phone Number [facility] Department [place] [address] * Transfuse RBC (06/20/2022 6:12 AM CDT) Blood Catherine Adams MD BLOOD TRANSFUSION ORDERABLE S Final Result Performing Organization Address City/[facility] Co de Phone Number [facility] Department [place] [address] * Transfuse RBC: 1 Units (06/20/2022 6:12 AM CDT) Blood Catherine Adams MD BLOOD TRANSFUSION ORDERABLE S Final Result * POCT glucose (06/20/2022 4:57 AM CDT) Glucose, POC 174 70 - 199 mg/dL [facility] Blood 06/20/2022 4:57 AM CDT 06/20/2022 4:57 AM CDT Catherine Adams MD LAB POCT ORDERABLES - DEVIC E Final Result Performing Organization Address [facility] de Phone Number [facility] Department [place] [address] * (ABNORMAL) Hemoglobin and hematocrit (06/20/2022 12:25 AM CDT) Hgb 6.2(C) 13.0 - 17.5 g/dL [facility] Comment:Consistent with prev ious results Hct 19.8(L) 38.9 - 50.3 % [facility] Blood 06/20/2022 12:2 5 AM CDT 06/20/2022 12:37 AM CDT Result [facility] Meme Castro MD LAB BLOOD ORDERABLES Final Result Performing Organization Address [facility] Co de Phone Number [facility] [place] [address] * Type and screen (06/20/2022 12:23 AM CDT) Maribel, indirect Negative [facility] ABO Rh A Positive [facility] Blood 06/20/2022 12:2 3 AM CDT 06/20/2022 1:33 AM CDT Narrative [facility] - 06/20/2022 3:08 AM CDT Has the patient had Daratumumab or Isatuximab in the past 6 months?->Unknown Catherine Adams MD LAB BLOOD BANK TEST ORDERAB LES Final Result Performing Organization Address [facility] Co de Phone Number [facility] Department [place] [address] * Prepare RBC: 1 Units (06/20/2022 12:15 AM CDT) [facility] Product code [id number] [facility] Unit Number [id number] [facility] Product Blood Type APOS [facility] Dispense Status PRESUMED TRANSFUSED [facility] Blood 06/20/2022 12:1 5 AM CDT 06/20/2022 12:16 AM CDT Narrative [facility] - 06/21/2022 12:50 AM CDT Are special requirements needed? (All products are leukoreduced and CMV- safe)- >No Date required:-[id number] LRRBC # of [id number] Reasons:-Hgb <7 g/dL} Catherine Adams MD BLOOD BANK PRODUCT ORDERABL ES Final Result Performing Organization Address [facility] de Phone Number [facility] Department [place] [address] * (ABNORMAL) POCT glucose (06/20/2022 12:01 AM CDT) [facility] Glucose, POC 206(H) 70 - 199 mg/dL [facility] Blood 06/20/2022 12:0 1 AM CDT 06/20/2022 12:01 AM CDT Catherine Adams MD LAB POCT ORDERABLES - DEVIC E Final Result Performing Organization Address [facility] Co de Phone Number [facility] Department [place] [address] * (ABNORMAL) Hemoglobin and hematocrit (06/19/2022 11:25 PM CDT) [facility] Hgb 6.2(C) 13.0 - 17.5 g/dL [facility] Comment:Critical result call ed to and read back by WON SHELBY RN on 06 20 2022 at 0010 to Precious Restrepo. Hct 19.5(L) 38.9 - 50.3 % [facility] Blood 06/19/2022 11:2 5 PM CDT 06/19/2022 11:42 PM CDT us Meme Castro MD LAB BLOOD ORDERABLES Final Result Performing Organization Address [facility] Co de Phone Number [facility] Department [place] [address] * POCT glucose (06/19/2022 8:55 PM CDT) [facility] Glucose, POC 161 70 - 199 mg/dL [facility] Blood 06/19/2022 8:55 PM CDT 06/19/2022 8:55 PM CDT Catherine Adams MD LAB POCT ORDERABLES - DEVIC E Final Result Performing Organization Address [facility] Co de Phone Number [facility] [place] [address] * (ABNORMAL) eGFR (06/19/2022 8:54 PM CDT) [facility] eGFR 16(L) 90 - 130 mL/min/1. 73 m2 [facility] Comment: Interpretive Data Reference Interval [...] interpretive data was last reviewed 2021. Blood 06/19/2022 8:54 PM CDT 06/19/2022 9:22 PM CDT us Marcelina Lo CHIEF AIRLINE RADIO OPERATOR LAB BLOOD ORDERABLES Final Re sult [facility] Department [place] [address] * (ABNORMAL) Differential, auto (06/19/2022 8:54 PM CDT) Pathologist [facility] Neutrophil abs 5.0 1.7 - 6.5 K/cumm [facility] Imm gran abs 0.1 0.0 - 0.1 K/cumm [facility] Lymphocyte abs 2.1 0.8 - 3.3 K/cumm [facility] Monocyte abs 1.2(H) 0.2 - 0.8 K/cumm [facility] Eosinophil abs 0.1 0.0 - 0.5 K/cumm [facility] Basophil abs 0.1 0.0 - 0.1 K/cumm [facility] Neutrophil pct 59.1 % [facility] Comment: Interpretive Data Percent cell count reference ranges are not reported, since discordance with absolute values may lead to misinterpretation of CBC data. Current Interpretive Data was last revised on 2017. Imm gran pct 0.7 % [facility] Comment: Interpretive Data Percent cell count reference ranges are not reported, since discordance with absolute values may lead to misinterpretation of CBC data. Current Interpretive Data was last revised on 2017. Lymphocyte pct 24.4 % [facility] Comment: Interpretive Data Percent cell count reference ranges are not reported, since discordance with absolute values may lead to misinterpretation of CBC data. Current Interpretive Data was last revised on 2017. Monocyte pct 13.7 % [facility] Comment: Interpretive Data Percent cell count reference ranges are not reported, since discordance with absolute values may lead to misinterpretation of CBC data. Current Interpretive Data was last revised on 2017. Eosinophil pct 1.3 % [facility] Comment: Interpretive Data Percent cell count reference ranges are not reported, since discordance with absolute values may lead to misinterpretation of CBC data. Current Interpretive Data was last revised on 2017. Basophil pct 0.8 % [facility] Comment: Interpretive Data Percent cell count reference ranges are not reported, since discordance with absolute values may lead to misinterpretation of CBC data. Current Interpretive Data was last revised on 2017. Blood 06/19/2022 8:54 PM CDT 06/19/2022 9:17 PM CDT us Marcelina Lo CHIEF AIRLINE RADIO OPERATOR LAB BLOOD ORDERABLES Final Re sult [facility] Department [place] [address] * (ABNORMAL) Blood gas, arterial (06/19/2022 8:54 PM CDT) pH, Art 7.45 7.35 - 7.45 [facility] PCO2, Arterial 32(L) 35 - 45 mmHg [facility] PO2, Arterial 75(L) 83 - 108 mmHg [facility] HCO3 Art (Calculated) 23 20 - 30 mmol/L [facility] BE, art -1 mmol/L [facility] Comment: Interpretive Data No Reference Range Established Current Interpretive Data was last revised on 2017 O2 Sat Art (Measured) 95 90 - 95 % [facility] Blood 06/19/2022 8:54 PM CDT 06/19/2022 9:17 PM CDT us Marcelina Lo NP LAB BLOOD ORDERABLES Final Re sult Performing Organization Address [facility]/ZIP Co de Phone Number [facility] [place] [address] * aPTT (06/19/2022 8:54 PM CDT) aPTT 37 27 - 37 sec [facility] Comment: Interpretive Data Therapeutic heparin range: 60.0 - 94.0 seconds. Based on correlation with therapeutic heparin activity range of 0.3-0.7 Units/mL. Current interpretive data was last revised on 2020. Blood 06/19/2022 8:54 PM CDT 06/19/2022 9:30 PM CDT Narrative [facility] - 06/19/2022 9:38 PM CDT Draw STAT PTT 6 hrs after initiation of heparin infusion, draw STAT PTT 6 hours after each dose/rate change, and every 6 hours until 2 consecutive PTTs are within therapeutic range. Once two consecutive PTT's are therapeutic (60-94.9 seconds), then draw PTT every AM until heparin is discontinued. us Catherine Adams MD LAB BLOOD ORDERABLES Final Result Performing Organization Address City/[facility]/ZIP Co de Phone Number [facility] Department [place] [address] * Lactate (06/19/2022 8:54 PM CDT) Lactate 1.3 0.7 - 2.0 mmol/L [facility] Blood 06/19/2022 8:54 PM CDT 06/19/2022 9:22 PM CDT Catherine Adams MD LAB BLOOD ORDERABLES Final Result Performing Organization Address City/[facility] Co de Phone Number [facility] [place] [address] * (ABNORMAL) Beta-hydroxybutyrate (06/19/2022 8:54 PM CDT) Pathologist [facility] Beta-Hydroxybut yrate 0.7(H) 0.0 - 0.5 mmol/L [facility] Blood 06/19/2022 8:54 PM CDT 06/19/2022 9:17 PM CDT Marcelina Lo CHIEF AIRLINE RADIO OPERATOR LAB BLOOD ORDERABLES Final Re sult Performing Organization Address [facility] Co de Phone Number [facility] [place] [address] * (ABNORMAL) Magnesium (06/19/2022 8:54 PM CDT) Magnesium 2.7(H) 1.4 - 2.5 mg/dL [facility] Blood 06/19/2022 8:54 PM CDT 06/19/2022 9:22 PM CDT Marcelina Lo CHIEF AIRLINE RADIO OPERATOR LAB BLOOD ORDERABLES Final Re sult Performing Organization Address City/[facility] Co de Phone Number [facility] [employer] [place], [place] [id number] * (ABNORMAL) Comprehensive metabolic panel (06/19/2022 8:54 PM CDT) Sodium 140 135 - 145 mmol/L [facility] Potassium, pl 4.8 3.3 - 4.9 mmol/L [facility] Chloride 102 97 - 110 mmol/L [facility] CO2 25 22 - 32 mmol/L [facility] Anion gap 13 2 - 15 mmol/L [facility] BUN 32(H) 8 - 25 mg/dL [facility] Creatinine 4.27(H) 0.80 - 1.30 mg/dL [facility] Glucose 148 70 - 199 mg/dL [facility] Comment: Interpretive Data Fasting glucose >/= [...] classification and Diagnosis of Diabetes Diabetes Care 2017;40 (Suppl. 1):S11. Current interpretive data was last revised 2017. Calcium 8.3(L) 8.5 - 10.3 mg/dL [facility] Bilirubin, total 0.5 0.1 - 1.2 mg/dL [facility] Protein, pl 6.1(L) 6.5 - 8.5 g/dL [facility] Albumin 2.9(L) 3.5 - 5.0 g/dL [facility] Alk phos 150(H) 40 - 130 Units/L [facility] ALT 32 7 - 55 Units/L [facility] AST 61(H) 10 - 50 Units/L [facility] Blood 06/19/2022 8:54 PM CDT 06/19/2022 9:22 PM CDT us Marcelina Lo CHIEF AIRLINE RADIO OPERATOR LAB BLOOD ORDERABLES Final Re sult [facility] Department [place] [address] * (ABNORMAL) CBC with auto differential (06/19/2022 8:54 PM CDT) WBC 8.4 3.8 - 9.9 K/cumm [facility] Hgb 6.8(L) 13.0 - 17.5 g/dL [facility] Comment:No apparent cause fo r delta. called ashley sandoval MD Hct 20.5(L) 38.9 - 50.3 % [facility] Plt 255 150 - 400 K/cumm [facility] MPV 9.6 9.1 - 12.3 fL [facility] RBC 2.15(L) 4.30 - 5.80 M/cumm [facility] MCV 95.3 81.3 - 96.4 fL [facility] MCH 31.6 27.1 - 33.3 pg [facility] MCHC 33.2 32.3 - 35.7 g/dL [facility] RDW CV 16.5(H) 11.1 - 14.9 % [facility] RDW SD 55.8(H) 35.7 - 48.1 fL [facility] NRBC abs 0.03(H) 0.00 - 0.01 K/cumm [facility] Blood 06/19/2022 8:54 PM CDT 06/19/2022 9:17 PM CDT us Marcelina Lo CHIEF AIRLINE RADIO OPERATOR LAB BLOOD ORDERABLES Final Re sult [facility] [place] [address] * (ABNORMAL) POCT glucose (06/19/2022 4:59 PM CDT) [facility] Glucose, POC 205(H) 70 - 199 mg/dL [facility] Blood 06/19/2022 4:59 PM CDT 06/19/2022 4:59 PM CDT Catherine Adams MD LAB POCT ORDERABLES - DEVIC E Final Result [facility] Department [place] [address] * POCT glucose (06/19/2022 1:22 PM CDT) Glucose, POC 101 70 - 199 mg/dL [facility] Blood 06/19/2022 1:22 PM CDT 06/19/2022 1:22 PM CDT Catherine Adams MD LAB POCT ORDERABLES - DEVIC E Final Result Performing Organization Address [facility]/ZIP Co de Phone Number [facility] Department [place] [address] * ECG 12 lead (06/19/2022 1:03 PM CDT) Ventricular Rate EKG/Min 126 BPM [facility] Atrial Rate 63 BPM [facility] QRS-Interval (MSEC) 106 ms [facility] QT-Interval (MSEC) 360 ms [facility] QTc 521 ms [facility] R [place] -53 degrees [facility] T [place] 125 degrees [facility] Diagnosis Atrial fibrillation with rapid ventricular response with premature ventricular or aberrantly conducted complexes Left axis deviation Poor precordial R wave progression Anterior infarct , age undetermined ST & T wave abnormality, consider lateral ischemia Abnormal ECG When compared with ECG of 18-JUN-2022 18:40, (unconfirmed) No significant change was found Confirmed by HUDSON SAL M.D ([id number]) on 06/22/2022 10:55:43 AM [facility] 06/19/2022 1:03 PM CDT 06/22/2022 10:55 AM CDT us Conrad Weston Chi, MD ECG ORDERABLES Final Res ult Performing Organization Address [facility]/ZIP Co de Phone Number [facility] * US RUQ (06/19/2022 10:35 AM CDT) Anatomical Region Laterality Modality Abdomen N/A Ultrasound 06/19/2022 10:4 7 AM CDT Impressions 06/19/2022 10:49 AM CDT Overdistended gallbladder with biliary sludge. ??No wall thickening or other signs of cholecystitis. ??Findings are probably related to prolonged fasting. ??If there is persistent clinical concern, consider HIDA scan. ?? Dictated by: Fernando Reinoso M.D. The radiology attending physician has personally reviewed this study, and had reviewed and/or edited this written report and agrees with it. Electronically signed by: Maria Teresa Rivera M.D. Narrative 06/19/2022 10:49 AM CDT EXAMINATION: ??LIMITED ABDOMINAL SONOGRAM ??(GALLBLADDER) HISTORY: ??51-year-old male with right upper quadrant pain being evaluated for cholecystitis. COMPARISON: ??None FINDINGS: ?? Gallbladder: The gallbladder is enlarged. There is sludge but no gallstones within the gallbladder. There is no gallbladder wall thickening. The gallbladder wall measures 2mm. There is no pericholecystic fluid. The sonographic Jade's sign could not be elicited due to the patient's clinical status. ??Cystic artery velocity is measured at 36 cm/s. ?? Bile Duct: There is no intrahepatic bile duct dilatation. The diameter of the common duct is 2 mm in the proximal segment and 4 mm in the mid segment and 2 mm in the distal segment. Procedure Note Maria Teresa Rivera MD - 06/19/2022 EXAMINATION: LIMITED ABDOMINAL SONOGRAM (GALLBLADDER) HISTORY: 51-year-old male with right upper quadrant pain being evaluated for cholecystitis. COMPARISON: None FINDINGS: Gallbladder: The gallbladder is enlarged. There is sludge but no gallstones within the gallbladder. There is no gallbladder wall thickening. The gallbladder wall measures 2mm. There is no pericholecystic fluid. The sonographic Jade's sign could not be elicited due to the patient's clinical status. Cystic artery velocity is measured at 36 cm/s. Bile Duct: There is no intrahepatic bile duct dilatation. The diameter of the common duct is 2 mm in the proximal segment and 4 mm in the mid segment and 2 mm in the distal segment. IMPRESSION: Overdistended gallbladder with biliary sludge. No wall thickening or other signs of cholecystitis. Findings are probably related to prolonged fasting. If there is persistent clinical concern, consider HIDA scan. Dictated by: Fernando Reinoso M.D. The radiology attending physician has personally reviewed this study, and had reviewed and/or edited this written report and agrees with it. Electronically signed by: Maria Teresa Rivera M.D. us Catherine Adams MD IMG US PROCEDURES Final Res ult * (ABNORMAL) eGFR (06/19/2022 9:09 AM CDT) eGFR 13(L) 90 - 130 mL/min/1. 73 m2 [facility] Comment: Interpretive Data Reference Interval Normal ?>/= [...] interpretive data was last reviewed 2021. Blood 06/19/2022 9:09 AM CDT 06/19/2022 10:17 AM CDT us Marcelina Lo CHIEF AIRLINE RADIO OPERATOR LAB BLOOD ORDERABLES Final Re sult [facility] [place] [address] * Differential, auto (06/19/2022 9:09 AM CDT) Neutrophil abs 2.8 1.7 - 6.5 K/cumm [facility] Imm gran abs 0.0 0.0 - 0.1 K/cumm [facility] Lymphocyte abs 1.2 0.8 - 3.3 K/cumm [facility] Monocyte abs 0.7 0.2 - 0.8 K/cumm [facility] Eosinophil abs 0.1 0.0 - 0.5 K/cumm [facility] Basophil abs 0.1 0.0 - 0.1 K/cumm [facility] Neutrophil pct 56.1 % [facility] Comment: Interpretive Data Percent cell count reference ranges are not reported, since discordance with absolute values may lead to misinterpretation of CBC data. Current Interpretive Data was last revised on 2017. Imm gran pct 0.8 % [facility] Comment: Interpretive Data Percent cell count reference ranges are not reported, since discordance with absolute values may lead to misinterpretation of CBC data. Current Interpretive Data was last revised on 2017. Lymphocyte pct 24.9 % [facility] Comment: Interpretive Data Percent cell count reference ranges are not reported, since discordance with absolute values may lead to misinterpretation of CBC data. Current Interpretive Data was last revised on 2017. Monocyte pct 14.2 % [facility] Comment: Interpretive Data Percent cell count reference ranges are not reported, since discordance with absolute values may lead to misinterpretation of CBC data. Current Interpretive Data was last revised on 2017. Eosinophil pct 2.8 % [facility] Comment: Interpretive Data Percent cell count reference ranges are not reported, since discordance with absolute values may lead to misinterpretation of CBC data. Current Interpretive Data was last revised on 2017. Basophil pct 1.2 % [facility] Comment: Interpretive Data Percent cell count reference ranges are not reported, since discordance with absolute values may lead to misinterpretation of CBC data. Current Interpretive Data was last revised on 2017. Blood 06/19/2022 9:09 AM CDT 06/19/2022 10:25 AM CDT Marcelina Lo CHIEF AIRLINE RADIO OPERATOR LAB BLOOD ORDERABLES Final Re sult Performing Organization Address [facility] Co de Phone Number [facility] [place] [address] * (ABNORMAL) Blood gas, arterial (06/19/2022 9:09 AM CDT) pH, Art 7.41 7.35 - 7.45 [facility] PCO2, Arterial 33(L) 35 - 45 mmHg [facility] PO2, Arterial 87 83 - 108 mmHg [facility] HCO3 Art (Calculated) 21 20 - 30 mmol/L [facility] BE, art -4 mmol/L [facility] Comment: Interpretive Data No Reference Range Established Current Interpretive Data was last revised on 2017 O2 Sat Art (Measured) 96(H) 90 - 95 % [facility] Blood 06/19/2022 9:09 AM CDT 06/19/2022 9:18 AM CDT Marcelina Lo CHIEF AIRLINE RADIO OPERATOR LAB BLOOD ORDERABLES Final Re sult Performing Organization Address [facility] [place] [address] * (ABNORMAL) Magnesium (06/19/2022 9:09 AM CDT) Pathologist [facility] Magnesium 2.9(H) 1.4 - 2.5 mg/dL [facility] Blood 06/19/2022 9:09 AM CDT 06/19/2022 10:17 AM CDT Marcelina Lo CHIEF AIRLINE RADIO OPERATOR LAB BLOOD ORDERABLES Final Re sult Performing Organization Address [facility] Co de Phone Number [facility] Department [place] [address] * (ABNORMAL) Comprehensive metabolic panel (06/19/2022 9:09 AM CDT) Sodium 137 135 - 145 mmol/L [facility] Potassium, pl 4.6 3.3 - 4.9 mmol/L [facility] Chloride 101 97 - 110 mmol/L [facility] CO2 23 22 - 32 mmol/L [facility] Anion gap 13 2 - 15 mmol/L [facility] BUN 35(H) 8 - 25 mg/dL [facility] Creatinine 5.02(H) 0.80 - 1.30 mg/dL [facility] Glucose 205(H) 70 - 199 mg/dL [facility] Comment: Interpretive Data Fasting glucose >/= [...] classification and Diagnosis of Diabetes Diabetes Care 2017;40 (Suppl. 1):S11. Current interpretive data was last revised 2017. Calcium 8.4(L) 8.5 - 10.3 mg/dL [facility] Bilirubin, total 0.4 0.1 - 1.2 mg/dL [facility] Protein, pl 6.1(L) 6.5 - 8.5 g/dL [facility] Albumin 2.9(L) 3.5 - 5.0 g/dL [facility] Alk phos 156(H) 40 - 130 Units/L [facility] ALT 32 7 - 55 Units/L [facility] AST 54(H) 10 - 50 Units/L [facility] Blood 06/19/2022 9:09 AM CDT 06/19/2022 10:17 AM CDT us Marcelina Lo NP LAB BLOOD ORDERABLES Final Re sult [facility] One [facility] Department [place] [address] * (ABNORMAL) CBC with auto differential (06/19/2022 9:09 AM CDT) WBC 4.9 3.8 - 9.9 K/cumm [facility] Hgb 9.9(L) 13.0 - 17.5 g/dL [facility] Hct 31.5(L) 38.9 - 50.3 % [facility] Plt 237 150 - 400 K/cumm [facility] MPV 9.9 9.1 - 12.3 fL [facility] RBC 3.20(L) 4.30 - 5.80 M/cumm [facility] MCV 98.4(H) 81.3 - 96.4 fL [facility] MCH 30.9 27.1 - 33.3 pg [facility] MCHC 31.4(L) 32.3 - 35.7 g/dL [facility] RDW CV 16.4(H) 11.1 - 14.9 % [facility] RDW SD 57.2(H) 35.7 - 48.1 fL [facility] NRBC abs 0.00 0.00 - 0.01 K/cumm [facility] Blood 06/19/2022 9:09 AM CDT 06/19/2022 10:25 AM CDT us Marcelina Lo CHIEF AIRLINE RADIO OPERATOR LAB BLOOD ORDERABLES Final Re sult Performing Organization Address City/[facility] Hospital/[facility] Co de Phone Number [facility] Department [place] [address] * (ABNORMAL) POCT glucose (06/19/2022 9:08 AM CDT) Glucose, POC 217(H) 70 - 199 mg/dL [facility] Blood 06/19/2022 9:08 AM CDT 06/19/2022 9:08 AM CDT Catherine Adams MD LAB POCT ORDERABLES - DEVIC E Final Result [facility] Department [place] [address] * XR Chest 1 View (06/19/2022 5:51 AM CDT) Anatomical Region Laterality Modality Body, Chest N/A Computed Radiogr aphy 06/19/2022 7:34 AM CDT Impressions 06/19/2022 7:34 AM CDT Comparison made to 06/18/2022. ??Right internal jugular catheter tip overlies the superior vena cava. ??Nasogastric tube tip located below diaphragm, not included on the [id number]. ??A tracheal tube tip located within the mid trachea. There are small lung volumes a likely small bilateral pleural effusions, left greater than right with associated bibasilar atelectasis. ??No pneumothorax or pneumonic consolidation. ??Stable heart size. Electronically signed by: John Bruno M.D. Narrative 06/19/2022 7:34 AM CDT EXAMINATION: 1 view chest radiograph Procedure Note John Bruno MD - 06/19/2022 EXAMINATION: 1 view chest radiograph IMPRESSION: Comparison made to 06/18/2022. Right internal jugular catheter tip overlies the superior vena cava. Nasogastric tube tip located below diaphragm, not included on the [id number]. A tracheal tube tip located within the mid trachea. There are small lung volumes a likely small bilateral pleural effusions, left greater than right with associated bibasilar atelectasis. No pneumothorax or pneumonic consolidation. Stable heart size. Electronically signed by: John Bruno M.D. us Catherine Adams MD IMG XR PROCEDURES Final Res ult * (ABNORMAL) eGFR (06/18/2022 10:50 PM CDT) [facility] eGFR 13(L) 90 - 130 mL/min/1. 73 m2 [facility] Comment: Interpretive Data Reference Interval Normal [...] interpretive data was last reviewed 2021. Blood 06/18/2022 10:5 0 PM CDT 06/18/2022 11:02 PM CDT us Marcelina Lo CHIEF AIRLINE RADIO OPERATOR LAB BLOOD ORDERABLES Final Re sult Performing Organization Address [facility] Co de Phone Number [facility] Department [place] [address] * Vancomycin level random (06/18/2022 10:50 PM CDT) Vancomycin random 38.4 mcg/mL [facility] Comment: Interpretive Data No reference ranges have been established for random drug levels. Current Interpretive Data was last revised on 2020. Blood 06/18/2022 10:5 0 PM CDT 06/18/2022 10:59 PM CDT us Catherine Adams MD LAB BLOOD ORDERABLES Final Result Performing Organization Address City/[facility] Co de Phone Number [facility] Department [place] [address] * (ABNORMAL) Differential, auto (06/18/2022 10:50 PM CDT) Neutrophil abs 5.0 1.7 - 6.5 K/cumm [facility] Imm gran abs 0.1 0.0 - 0.1 K/cumm [facility] Lymphocyte abs 1.7 0.8 - 3.3 K/cumm [facility] Monocyte abs 1.3(H) 0.2 - 0.8 K/cumm [facility] Eosinophil abs 0.2 0.0 - 0.5 K/cumm [facility] Basophil abs 0.1 0.0 - 0.1 K/cumm [facility] Neutrophil pct 60.3 % [facility] Comment: Interpretive Data Percent cell count reference ranges are not reported, since discordance with absolute values may lead to misinterpretation of CBC data. Current Interpretive Data was last revised on 2017. Imm gran pct 0.7 % [facility] Comment: Interpretive Data Percent cell count reference ranges are not reported, since discordance with absolute values may lead to misinterpretation of CBC data. Current Interpretive Data was last revised on 2017. Lymphocyte pct 20.4 % [facility] Comment: Interpretive Data Percent cell count reference ranges are not reported, since discordance with absolute values may lead to misinterpretation of CBC data. Current Interpretive Data was last revised on 2017. Monocyte pct 16.0 % [facility] Comment: Interpretive Data Percent cell count reference ranges are not reported, since discordance with absolute values may lead to misinterpretation of CBC data. Current Interpretive Data was last revised on 2017. Eosinophil pct 2.0 % [facility] Comment: Interpretive Data Percent cell count reference ranges are not reported, since discordance with absolute values may lead to misinterpretation of CBC data. Current Interpretive Data was last revised on 2017. Basophil pct 0.6 % [facility] Comment: Interpretive Data Percent cell count reference ranges are not reported, since discordance with absolute values may lead to misinterpretation of CBC data. Current Interpretive Data was last revised on 2017. Blood 06/18/2022 10:5 0 PM CDT 06/18/2022 10:59 PM CDT Marcelina Lo CHIEF AIRLINE RADIO OPERATOR LAB BLOOD ORDERABLES Final Re sult Performing Organization Address [facility] de Phone Number [facility] Department [place] [address] * Lactate (06/18/2022 10:50 PM CDT) Lactate 1.0 0.7 - 2.0 mmol/L [facility] Blood 06/18/2022 10:5 0 PM CDT 06/18/2022 11:02 PM CDT Catherine Adams MD LAB BLOOD ORDERABLES Final Result Performing Organization Address [facility] de Phone Number [facility] [place] [address] * (ABNORMAL) Triglycerides (06/18/2022 10:50 PM CDT) Triglycerides 226(H) <=149 mg/dL [facility] Comment: Interpretive Data Ages < or [...] Interpretive Data was last revised on 2018. Blood 06/18/2022 10:5 0 PM CDT 06/18/2022 10:59 PM CDT Narrative [facility] - 06/18/2022 11:57 PM CDT While on propofol infusion. Catherine Adams MD LAB BLOOD ORDERABLES Final Result Performing Organization Address City/[facility]/ZIP Co de Phone Number [facility] Department [place] [address] * (ABNORMAL) Phosphorus (06/18/2022 10:50 PM CDT) Phosphorus, pl 5.2(H) 2.3 - 4.5 mg/dL [facility] Blood 06/18/2022 10:5 0 PM CDT 06/18/2022 10:59 PM CDT Marcelina Lo CHIEF AIRLINE RADIO OPERATOR LAB BLOOD ORDERABLES Final Re sult Performing Organization Address [facility] Co de Phone Number [facility] Department [place] [address] * (ABNORMAL) Beta-hydroxybutyrate (06/18/2022 10:50 PM CDT) Beta-Hydroxybut yrate 1.3(H) 0.0 - 0.5 mmol/L [facility] Blood 06/18/2022 10:5 0 PM CDT 06/18/2022 10:59 PM CDT Marcelina Lo CHIEF AIRLINE RADIO OPERATOR LAB BLOOD ORDERABLES Final Re sult Performing Organization Address City/[facility]/ZIP Co de Phone Number [facility] Department [place] [address] * Lipase (06/18/2022 10:50 PM CDT) Pathologist [facility] Lipase 22 10 - 99 Units/L [facility] Blood 06/18/2022 10:5 0 PM CDT 06/18/2022 10:59 PM CDT Marcelina Lo CHIEF AIRLINE RADIO OPERATOR LAB BLOOD ORDERABLES Final Re sult Performing Organization Address City/[facility]/ZIP Co de Phone Number [facility] [place] [address] * (ABNORMAL) Magnesium (06/18/2022 10:50 PM CDT) [facility] Magnesium 3.1(H) 1.4 - 2.5 mg/dL [facility] Blood 06/18/2022 10:5 0 PM CDT 06/18/2022 11:02 PM CDT Marcelina Lo CHIEF AIRLINE RADIO OPERATOR LAB BLOOD ORDERABLES Final Re sult Performing Organization Address [facility] [place] [address] * (ABNORMAL) Comprehensive metabolic panel (06/18/2022 10:50 PM CDT) [facility] Sodium 140 135 - 145 mmol/L [facility] Potassium, pl 4.3 3.3 - 4.9 mmol/L [facility] Chloride 103 97 - 110 mmol/L [facility] CO2 22 22 - 32 mmol/L [facility] Anion gap 15 2 - 15 mmol/L [facility] BUN 35(H) 8 - 25 mg/dL [facility] Creatinine 5.01(H) 0.80 - 1.30 mg/dL [facility] Glucose 199 70 - 199 mg/dL [facility] Comment: Interpretive Data Fasting glucose >/= [...] classification and Diagnosis of Diabetes Diabetes Care 2017;40 (Suppl. 1):S11. Current interpretive data was last revised 2017. Calcium 8.7 8.5 - 10.3 mg/dL [facility] Bilirubin, total 0.4 0.1 - 1.2 mg/dL [facility] Protein, pl 6.5 6.5 - 8.5 g/dL [facility] Albumin 2.8(L) 3.5 - 5.0 g/dL [facility] Alk phos 163(H) 40 - 130 Units/L [facility] ALT 34 7 - 55 Units/L [facility] AST 56(H) 10 - 50 Units/L [facility] Blood 06/18/2022 10:5 0 PM CDT 06/18/2022 11:02 PM CDT us Marcelina Lo CHIEF AIRLINE RADIO OPERATOR LAB BLOOD ORDERABLES Final Re sult [facility] Department [place] [address] * (ABNORMAL) CBC with auto differential (06/18/2022 10:50 PM CDT) WBC 8.4 3.8 - 9.9 K/cumm [facility] Hgb 7.5(L) 13.0 - 17.5 g/dL [facility] Hct 23.6(L) 38.9 - 50.3 % [facility] Plt 313 150 - 400 K/cumm [facility] MPV 9.8 9.1 - 12.3 fL [facility] RBC 2.41(L) 4.30 - 5.80 M/cumm [facility] MCV 97.9(H) 81.3 - 96.4 fL [facility] MCH 31.1 27.1 - 33.3 pg [facility] MCHC 31.8(L) 32.3 - 35.7 g/dL [facility] RDW CV 16.5(H) 11.1 - 14.9 % [facility] RDW SD 56.5(H) 35.7 - 48.1 fL [facility] NRBC abs 0.00 0.00 - 0.01 K/cumm [facility] Blood 06/18/2022 10:5 0 PM CDT 06/18/2022 10:59 PM CDT us Marcelina Lo CHIEF AIRLINE RADIO OPERATOR LAB BLOOD ORDERABLES Final Re sult Performing Organization Address City/[facility]/ZIP Co de Phone Number [facility] Department [place] [address] * (ABNORMAL) POCT glucose (06/18/2022 7:51 PM CDT) Glucose, POC 256(H) 70 - 199 mg/dL [facility] Blood 06/18/2022 7:51 PM CDT 06/18/2022 7:51 PM CDT us Catherine Adams MD LAB POCT ORDERABLES - DEVIC E Final Result Performing Organization Address [facility]/ZIP Co de Phone Number [facility] Department [place] [address] * ECG 12 lead (06/18/2022 6:40 PM CDT) Ventricular Rate EKG/Min 133 BPM [facility] Atrial Rate 147 BPM [facility] QRS-Interval (MSEC) 102 ms [facility] QT-Interval (MSEC) 332 ms [facility] QTc 494 ms [facility] R [place] -43 degrees [facility] T [place] 123 degrees [facility] Diagnosis Atrial fibrillation with rapid ventricular response Left axis deviation ST & T wave abnormality, consider lateral ischemia Long QTc When compared with ECG of 07-JUN-2022 16:59, Atrial fibrillation has replaced Sinus rhythm Vent. rate has increased BY ??82 BPM QRS duration has decreased Inverted T waves have replaced nonspecific T wave abnormality in Lateral leads T wave abnormalities have improved in anyterior leads Confirmed by KENN BILLINGSLEY M.D ([id number]) on 06/21/2022 1:28:53 PM [facility] 06/18/2022 6:40 PM CDT 06/21/2022 1:28 PM CDT Conrad Weston Chi, MD ECG ORDERABLES Final Res ult Performing Organization Address [facility] de Phone Number [facility] * POCT glucose (06/18/2022 5:11 PM CDT) Glucose, POC 168 70 - 199 mg/dL [facility] Blood 06/18/2022 5:11 PM CDT 06/18/2022 5:11 PM CDT Catherine Adams MD LAB POCT ORDERABLES - DEVIC E Final Result Performing Organization Address [facility] de Phone Number [facility] Department [place] [address] * POCT glucose (06/18/2022 4:16 PM CDT) Glucose, POC 181 70 - 199 mg/dL [facility] Blood 06/18/2022 4:16 PM CDT 06/18/2022 4:16 PM CDT Catherine Adams MD LAB POCT ORDERABLES - DEVIC E Final Result Performing Organization Address [facility] de Phone Number [facility] Department [place] [address] * (ABNORMAL) POCT glucose (06/18/2022 2:38 PM CDT) Glucose, POC 264(H) 70 - 199 mg/dL [facility] Blood 06/18/2022 2:38 PM CDT 06/18/2022 2:38 PM CDT us Catherine Adams MD LAB POCT ORDERABLES - DEVIC E Final Result Performing Organization Address [facility] Co de Phone Number [facility] [place] [address] * (ABNORMAL) POCT glucose (06/18/2022 1:34 PM CDT) Glucose, POC 376(H) 70 - 199 mg/dL [facility] Blood 06/18/2022 1:34 PM CDT 06/18/2022 1:34 PM CDT Catherine Adams MD LAB POCT ORDERABLES - DEVIC E Final Result Performing Organization Address [facility] de Phone Number [facility] [place] [address] * (ABNORMAL) Beta-hydroxybutyrate (06/18/2022 1:32 PM CDT) Pathologist [facility] Beta-Hydroxybut yrate 0.9(H) 0.0 - 0.5 mmol/L [facility] Blood 06/18/2022 1:32 PM CDT 06/18/2022 1:48 PM CDT Catherine Adams MD LAB BLOOD ORDERABLES Final Result Performing Organization Address [facility] Co de Phone Number [facility] [place] [address] * IR Central Line Placement > 5 Years (06/18/2022 12:47 PM CDT) Anatomical Region Laterality Modality Body N/A X-Ray Angiograph y 06/18/2022 5:56 PM CDT Impressions 06/18/2022 6:03 PM CDT Successful nontunneled catheter placement. PLAN: The catheter is ready for immediate use. ??When treatment is completed, this catheter can be removed at the bedside according to standard hospital protocol. ?? Dictated by: Aric Whitlock MD The radiology attending physician has personally reviewed this study, and had reviewed and/or edited this written report and agrees with it. Electronically signed by: Payam Allison M.D. Narrative 06/18/2022 6:03 PM CDT EXAMINATION: ??NONTUNNELED CENTRAL VENOUS CATHETER PLACEMENT (STD) HISTORY: ?? 51 year old man intubated and sedated in the ICU with need for hemodialysis. ??Reportedly over 10 attempts have been made in the ICU by both the ICU team and interventional cardiology team to place central lines. ??These attempts were unsuccessful. ??The patient requires additional fluid removal via hemodialysis. ??IR was consulted for non tunneled hemodialysis catheter placement. ATTENDING PRESENCE: ??Payam Allison M.D., the attending radiologist was present from the beginning to the end of the procedure. ?? SEDATION: Patient was intubated and sedated upon arrival to procedure room. ??The patient did not require additional sedation for the procedure. ?? TECHNIQUE: ?? The risks, benefits and alternatives were discussed and informed consent was obtained. ??Prior to beginning the procedure, [place] Protocol was used to confirm the patient's identity and planned procedure. ??Fluoroscopy time has been recorded in the electronic medical record. Maximum sterile barriers including cap, mask, hand hygiene, sterile gloves, sterile gown, large sterile drape and 2% chlorhexidine for cutaneous antisepsis were used. ??The skin over the right neck was sterilely prepped, draped and infiltrated with 1% buffered lidocaine. Prior to the procedure, the target vessel was evaluated by ultrasound, an image of the patent vessel recorded, and this image placed in the patient's chart. ??After sterile prep, this vessel was accessed using realtime ultrasound guidance. A guidewire and catheter were then passed centrally using fluoroscopic guidance. ?? The intravascular length from the access site to the right atrium was assessed. After dilating the tract, a 20 cm Trialysis catheter was inserted over the guidewire. The catheter was flushed with 100U/ml heparin and secured in place. The dialysis ports were loaded by 1000 units per mL heparin with A sterile dressing was applied. ?? ESTIMATED BLOOD LOSS: Minimal. CONDITION: Stable DISCHARGED TO: ICU FINDINGS: The final fluoroscopic image demonstrates the catheter with its tip cavoatrial junction. ??No complications are seen. Procedure Note Payam Allison MD - 06/18/2022 EXAMINATION: NONTUNNELED CENTRAL VENOUS CATHETER PLACEMENT (STD) HISTORY: 51 year old man intubated and sedated in the ICU with need for hemodialysis. Reportedly over 10 attempts have been made in the ICU by both the ICU team and interventional cardiology team to place central lines. These attempts were unsuccessful. The patient requires additional fluid removal via hemodialysis. IR was consulted for non tunneled hemodialysis catheter placement. ATTENDING PRESENCE: Payam Allison M.D., the attending radiologist was present from the beginning to the end of the procedure. SEDATION: Patient was intubated and sedated upon arrival to procedure room. The patient did not require additional sedation for the procedure. TECHNIQUE: The risks, benefits and alternatives were discussed and informed consent was obtained. Prior to beginning the procedure, [place] Protocol was used to confirm the patient's identity and planned procedure. Fluoroscopy time has been recorded in the electronic medical record. Maximum sterile barriers including cap, mask, hand hygiene, sterile gloves, sterile gown, large sterile drape and 2% chlorhexidine for cutaneous antisepsis were used. The skin over the right neck was sterilely prepped, draped and infiltrated with 1% buffered lidocaine. Prior to the procedure, the target vessel was evaluated by ultrasound, an image of the patent vessel recorded, and this image placed in the patient's chart. After sterile prep, this vessel was accessed using realtime ultrasound guidance. A guidewire and catheter were then passed centrally using fluoroscopic guidance. The intravascular length from the access site to the right atrium was assessed. After dilating the tract, a 20 cm Trialysis catheter was inserted over the guidewire. The catheter was flushed with 100U/ml heparin and secured in place. The dialysis ports were loaded by 1000 units per mL heparin with A sterile dressing was applied. ESTIMATED BLOOD LOSS: Minimal. CONDITION: Stable DISCHARGED TO: ICU FINDINGS: The final fluoroscopic image demonstrates the catheter with its tip cavoatrial junction. No complications are seen. IMPRESSION: Successful nontunneled catheter placement. PLAN: The catheter is ready for immediate use. When treatment is completed, this catheter can be removed at the bedside according to standard hospital protocol. Dictated by: Aric Whitlock MD The radiology attending physician has personally reviewed this study, and had reviewed and/or edited this written report and agrees with it. Electronically signed by: Payam Allison M.D. Catherine Adams MD IMG IR PROCEDURES Final Res ult * POCT glucose (06/18/2022 11:34 AM CDT) Glucose, POC 170 70 - 199 mg/dL [facility] Blood 06/18/2022 11:3 4 AM CDT 06/18/2022 11:34 AM CDT Result [facility] Catherine Adams MD LAB POCT ORDERABLES - DEVIC E Final Result [facility] Department [place] [address] * (ABNORMAL) Blood gas, arterial (06/18/2022 10:14 AM CDT) pH, Art 7.36 7.35 - 7.45 [facility] PCO2, Arterial 37 35 - 45 mmHg [facility] PO2, Arterial 74(L) 83 - 108 mmHg [facility] HCO3 Art (Calculated) 21 20 - 30 mmol/L [facility] BE, art -4 mmol/L [facility] Comment: Interpretive Data No Reference Range Established Current Interpretive Data was last revised on 2017 O2 Sat Art (Measured) 94 90 - 95 % [facility] Blood 06/18/2022 10:1 4 AM CDT 06/18/2022 10:23 AM CDT Marcelina Lo NP LAB BLOOD ORDERABLES Final Re sult Performing Organization Address [facility] Co de Phone Number [facility] Department [place] [address] * POCT glucose (06/18/2022 10:13 AM CDT) Pathologist [facility] Glucose, POC 83 70 - 199 mg/dL [facility] Blood 06/18/2022 10:1 3 AM CDT 06/18/2022 10:13 AM CDT us Catherine Adams MD LAB POCT ORDERABLES - DEVIC E Final Result Performing Organization Address [facility] de Phone Number [facility] Department [place] [address] * (ABNORMAL) eGFR (06/18/2022 8:52 AM CDT) [facility] eGFR 10(L) 90 - 130 mL/min/1. 73 m2 [facility] Comment: Interpretive Data Reference Interval [...] interpretive data was last reviewed 2021. Blood 06/18/2022 8:52 AM CDT 06/18/2022 9:01 AM CDT Marcelina Lo NP LAB BLOOD ORDERABLES Final Re sult Performing Organization Address City/[facility] Co de Phone Number [facility] Department [place] [address] * Vancomycin level random (06/18/2022 8:52 AM CDT) Pathologist [facility] Vancomycin random 51.8 mcg/mL [facility] Comment: Repeated on Dilution Interpretive Data No reference ranges have been established for random drug levels. Current Interpretive Data was last revised on 2020. Blood 06/18/2022 8:52 AM CDT 06/18/2022 8:58 AM CDT Catherine Adams MD LAB BLOOD ORDERABLES Final Result Performing Organization Address [facility] de Phone Number [facility] Department [place] [address] * (ABNORMAL) Differential, auto (06/18/2022 8:52 AM CDT) Pathologist [facility] Neutrophil abs 5.2 1.7 - 6.5 K/cumm [facility] Imm gran abs 0.1 0.0 - 0.1 K/cumm [facility] Lymphocyte abs 1.8 0.8 - 3.3 K/cumm [facility] Monocyte abs 1.6(H) 0.2 - 0.8 K/cumm [facility] Eosinophil abs 0.2 0.0 - 0.5 K/cumm [facility] Basophil abs 0.1 0.0 - 0.1 K/cumm [facility] Neutrophil pct 58.4 % [facility] Comment: Interpretive Data Percent cell count reference ranges are not reported, since discordance with absolute values may lead to misinterpretation of CBC data. Current Interpretive Data was last revised on 2017. Imm gran pct 1.0 % [facility] Comment: Interpretive Data Percent cell count reference ranges are not reported, since discordance with absolute values may lead to misinterpretation of CBC data. Current Interpretive Data was last revised on 2017. Lymphocyte pct 19.8 % [facility] Comment: Interpretive Data Percent cell count reference ranges are not reported, since discordance with absolute values may lead to misinterpretation of CBC data. Current Interpretive Data was last revised on 2017. Monocyte pct 17.5 % [facility] Comment: Interpretive Data Percent cell count reference ranges are not reported, since discordance with absolute values may lead to misinterpretation of CBC data. Current Interpretive Data was last revised on 2017. Eosinophil pct 2.6 % [facility] Comment: Interpretive Data Percent cell count reference ranges are not reported, since discordance with absolute values may lead to misinterpretation of CBC data. Current Interpretive Data was last revised on 2017. Basophil pct 0.7 % [facility] Comment: Interpretive Data Percent cell count reference ranges are not reported, since discordance with absolute values may lead to misinterpretation of CBC data. Current Interpretive Data was last revised on 2017. Blood 06/18/2022 8:52 AM CDT 06/18/2022 8:58 AM CDT us Marcelina Lo CHIEF AIRLINE RADIO OPERATOR LAB BLOOD ORDERABLES Final Re sult [facility] Department [place] [address] * (ABNORMAL) Magnesium (06/18/2022 8:52 AM CDT) Magnesium 2.9(H) 1.4 - 2.5 mg/dL [facility] Blood 06/18/2022 8:52 AM CDT 06/18/2022 8:58 AM CDT us Marcelina Lo NP LAB BLOOD ORDERABLES Final Re sult [facility] Department [place] [address] * (ABNORMAL) Comprehensive metabolic panel (06/18/2022 8:52 AM CDT) Sodium 143 135 - 145 mmol/L [facility] Potassium, pl 4.0 3.3 - 4.9 mmol/L [facility] Chloride 104 97 - 110 mmol/L [facility] CO2 23 22 - 32 mmol/L [facility] Anion gap 16(H) 2 - 15 mmol/L [facility] BUN 40(H) 8 - 25 mg/dL [facility] Creatinine 6.24(H) 0.80 - 1.30 mg/dL [facility] Glucose 116 70 - 199 mg/dL [facility] Comment: Interpretive Data Fasting glucose >/= [...] classification and Diagnosis of Diabetes Diabetes Care 2017;40 (Suppl. 1):S11. Current interpretive data was last revised 2017. Calcium 9.5 8.5 - 10.3 mg/dL [facility] Bilirubin, total 0.4 0.1 - 1.2 mg/dL [facility] Protein, pl 7.4 6.5 - 8.5 g/dL [facility] Albumin 3.3(L) 3.5 - 5.0 g/dL [facility] Alk phos 197(H) 40 - 130 Units/L [facility] ALT 36 7 - 55 Units/L [facility] AST 60(H) 10 - 50 Units/L [facility] Blood 06/18/2022 8:52 AM CDT 06/18/2022 8:58 AM CDT Marcelina Lo CHIEF AIRLINE RADIO OPERATOR LAB BLOOD ORDERABLES Final Re sult Performing Organization Address City/[facility]/ZIP Co de Phone Number [facility] Department [place] [address] * (ABNORMAL) CBC with auto differential (06/18/2022 8:52 AM CDT) WBC 8.9 3.8 - 9.9 K/cumm [facility] Hgb 8.8(L) 13.0 - 17.5 g/dL [facility] Hct 27.1(L) 38.9 - 50.3 % [facility] Plt 283 150 - 400 K/cumm [facility] MPV 9.7 9.1 - 12.3 fL [facility] RBC 2.81(L) 4.30 - 5.80 M/cumm [facility] MCV 96.4 81.3 - 96.4 fL [facility] MCH 31.3 27.1 - 33.3 pg [facility] MCHC 32.5 32.3 - 35.7 g/dL [facility] RDW CV 16.2(H) 11.1 - 14.9 % [facility] RDW SD 54.0(H) 35.7 - 48.1 fL [facility] NRBC abs 0.00 0.00 - 0.01 K/cumm [facility] Blood 06/18/2022 8:52 AM CDT 06/18/2022 8:58 AM CDT Marcelina Lo CHIEF AIRLINE RADIO OPERATOR LAB BLOOD ORDERABLES Final Re sult [facility] Department [place] [address] * POCT glucose (06/18/2022 8:49 AM CDT) Glucose, POC 109 70 - 199 mg/dL [facility] Blood 06/18/2022 8:49 AM CDT 06/18/2022 8:49 AM CDT Catherine Adams MD LAB POCT ORDERABLES - DEVIC E Final Result Performing Organization Address City/[facility] Co de Phone Number [facility] [place] [address] * POCT glucose (06/18/2022 6:53 AM CDT) Glucose, POC 145 70 - 199 mg/dL [facility] Blood 06/18/2022 6:53 AM CDT 06/18/2022 6:53 AM CDT Catherine Adams MD LAB POCT ORDERABLES - DEVIC E Final Result Performing Organization Address [facility] [place] [address] * POCT glucose (06/18/2022 6:11 AM CDT) Glucose, POC 164 70 - 199 mg/dL [facility] Blood 06/18/2022 6:11 AM CDT 06/18/2022 6:11 AM CDT Catherine Adams MD LAB POCT ORDERABLES - DEVIC E Final Result Performing Organization Address [facility] [place] [address] * XR Chest 1 View (06/18/2022 5:48 AM CDT) Anatomical Region Laterality Modality Body, Chest N/A Computed Radiogr aphy 06/18/2022 9:30 AM CDT Impressions 06/18/2022 12:14 PM CDT Gastric tube collimated off radiograph with esophageal temperature probe in mid/distal esophagus. Endotracheal tube with tip terminating 4 cm above boni. Small lung volumes with associated bibasilar atelectasis, unchanged. No pneumothorax or definite pleural effusion. Cardiac mediastinal contours are stable.. Dictated by: Fernando Reinoso M.D. The radiology attending physician has personally reviewed this study, and had reviewed and/or edited this written report and agrees with it. Electronically signed by: Ramirez Blake M.D. Narrative 06/18/2022 12:14 PM CDT EXAMINATION: 1 view chest radiograph The current study is compared with the prior radiograph dated 06/17/2022. Procedure Note Ramirez Blake MD - 06/18/2022 EXAMINATION: 1 view chest radiograph The current study is compared with the prior radiograph dated 06/17/2022. IMPRESSION: Gastric tube collimated off radiograph with esophageal temperature probe in mid/distal esophagus. Endotracheal tube with tip terminating 4 cm above boni. Small lung volumes with associated bibasilar atelectasis, unchanged. No pneumothorax or definite pleural effusion. Cardiac mediastinal contours are stable.. Dictated by: Fernando Reinoso M.D. The radiology attending physician has personally reviewed this study, and had reviewed and/or edited this written report and agrees with it. Electronically signed by: Ramirez Blake M.D. Catherine Adams MD IMG XR PROCEDURES Final Res ult * (ABNORMAL) aPTT (06/18/2022 5:13 AM CDT) aPTT 63(H) 27 - 37 sec [facility] Comment: Interpretive Data Therapeutic heparin range: 60.0 - 94.0 seconds. Based on correlation with therapeutic heparin activity range of 0.3-0.7 Units/mL. Current interpretive data was last revised on 2020. Blood 06/18/2022 5:13 AM CDT 06/18/2022 5:42 AM CDT Narrative ALESSANDRA CARRION - 06/18/2022 6:05 AM CDT Draw STAT PTT 6 hrs after initiation of heparin infusion, draw STAT PTT 6 hours after each dose/rate change, and every 6 hours until 2 consecutive PTTs are within therapeutic range. Once two consecutive PTT's are therapeutic (60-94.9 seconds), then draw PTT every AM until heparin is discontinued. Catherine Adams MD LAB BLOOD ORDERABLES Final Result Performing Organization Address [facility] Co de Phone Number [facility] [place] [address] * (ABNORMAL) Blood gas, arterial (06/18/2022 5:13 AM CDT) pH, Art 7.33(L) 7.35 - 7.45 [facility] PCO2, Arterial 39 35 - 45 mmHg [facility] PO2, Arterial 92 83 - 108 mmHg [facility] HCO3 Art (Calculated) 21 20 - 30 mmol/L [facility] BE, art -5 mmol/L [facility] Comment: Interpretive Data No Reference Range Established Current Interpretive Data was last revised on 2017 O2 Sat Art (Measured) 96(H) 90 - 95 % [facility] Blood 06/18/2022 5:13 AM CDT 06/18/2022 5:34 AM CDT Marcelina Lo NP LAB BLOOD ORDERABLES Final Re sult Performing Organization Address [facility] Co de Phone Number [facility] [place] [address] * (ABNORMAL) POCT glucose (06/18/2022 5:10 AM CDT) Glucose, POC 205(H) 70 - 199 mg/dL [facility] Blood 06/18/2022 5:10 AM CDT 06/18/2022 5:10 AM CDT Catherine Adams MD LAB POCT ORDERABLES - DEVIC E Final Result Performing Organization Address City/[facility] Co de Phone Number [facility] [place] [address] * POCT glucose (06/18/2022 4:08 AM CDT) Glucose, POC 186 70 - 199 mg/dL [facility] Blood 06/18/2022 4:08 AM CDT 06/18/2022 4:08 AM CDT Catherine Adams MD LAB POCT ORDERABLES - DEVIC E Final Result Performing Organization Address City/State/[facility] [place] [address] * POCT glucose (06/18/2022 3:24 AM CDT) Glucose, POC 179 70 - 199 mg/dL [facility] Blood 06/18/2022 3:24 AM CDT 06/18/2022 3:24 AM CDT Catherine Adams MD LAB POCT ORDERABLES - DEVIC E Final Result Performing Organization Address City/[facility] [place] [address] * POCT glucose (06/18/2022 2:25 AM CDT) Glucose, POC 132 70 - 199 mg/dL [facility] Blood 06/18/2022 2:25 AM CDT 06/18/2022 2:25 AM CDT Catherine Adams MD LAB POCT ORDERABLES - DEVIC E Final Result Performing Organization Address City/[facility] [place] [address] * POCT glucose (06/18/2022 1:27 AM CDT) Glucose, POC 105 70 - 199 mg/dL [facility] Blood 06/18/2022 1:27 AM CDT 06/18/2022 1:27 AM CDT Catherine Adams MD LAB POCT ORDERABLES - DEVIC E Final Result Performing Organization Address [facility] Co de Phone Number [facility] [place] [address] * POCT glucose (06/17/2022 10:45 PM CDT) Pathologist [facility] Glucose, POC 138 70 - 199 mg/dL [facility] Blood 06/17/2022 10:4 5 PM CDT 06/17/2022 10:45 PM CDT Catherine Adams MD LAB POCT ORDERABLES - DEVIC E Final Result Performing Organization Address [facility] de Phone Number [facility] [place] [address] * (ABNORMAL) Hemoglobin and hematocrit (06/17/2022 10:31 PM CDT) [facility] Hgb 7.9(L) 13.0 - 17.5 g/dL [facility] Hct 24.0(L) 38.9 - 50.3 % [facility] Blood 06/17/2022 10:3 1 PM CDT 06/17/2022 10:45 PM CDT Tyra De La Torre MD LAB BLOOD ORDERABLES Final Resu lt Performing Organization Address [facility] [place] [address] * Type and screen (06/17/2022 10:31 PM CDT) [facility] Maribel, indirect Negative [facility] ABO Rh A Positive [facility] Blood 06/17/2022 10:3 1 PM CDT 06/17/2022 10:53 PM CDT Narrative ALESSANDRA CARRION - 06/17/2022 11:49 PM CDT Has the patient had Daratumumab or Isatuximab in the past 6 months?->Unknown Catherine Adams MD LAB BLOOD BANK TEST ORDERAB LES Final Result [facility] Department [place] [address] * (ABNORMAL) eGFR (06/17/2022 9:17 PM CDT) eGFR 11(L) 90 - 130 mL/min/1. 73 m2 [facility] Comment: Interpretive Data Reference Interval Normal [...] interpretive data was last reviewed 2021. Blood 06/17/2022 9:17 PM CDT 06/17/2022 9:44 PM CDT Catherine Adams MD LAB BLOOD ORDERABLES Final Result [facility] [place] [address] * (ABNORMAL) Magnesium (06/17/2022 9:17 PM CDT) Pathologist [facility] Magnesium 2.9(H) 1.4 - 2.5 mg/dL [facility] Blood 06/17/2022 9:17 PM CDT 06/17/2022 9:27 PM CDT Catherine Adams MD LAB BLOOD ORDERABLES Final Result Performing Organization Address [facility] de Phone Number [facility] [place] [address] * (ABNORMAL) Comprehensive metabolic panel (06/17/2022 9:17 PM CDT) [facility] Sodium 142 135 - 145 mmol/L [facility] Potassium, pl 3.2(L) 3.3 - 4.9 mmol/L [facility] Chloride 104 97 - 110 mmol/L [facility] CO2 23 22 - 32 mmol/L [facility] Anion gap 15 2 - 15 mmol/L [facility] BUN 41(H) 8 - 25 mg/dL [facility] Creatinine 5.65(H) 0.80 - 1.30 mg/dL [facility] Glucose 121 70 - 199 mg/dL [facility] Comment: Interpretive Data Fasting glucose >/= [...] classification and Diagnosis of Diabetes Diabetes Care 2017;40 (Suppl. 1):S11. Current interpretive data was last revised 2017. Calcium 9.3 8.5 - 10.3 mg/dL [facility] Bilirubin, total 0.4 0.1 - 1.2 mg/dL [facility] Protein, pl 6.4(L) 6.5 - 8.5 g/dL [facility] Albumin 2.7(L) 3.5 - 5.0 g/dL [facility] Alk phos 181(H) 40 - 130 Units/L [facility] ALT 33 7 - 55 Units/L [facility] AST 52(H) 10 - 50 Units/L [facility] Blood 06/17/2022 9:17 PM CDT 06/17/2022 9:27 PM CDT Catherine Adams MD LAB BLOOD ORDERABLES Final Result [facility] Department [place] [address] * (ABNORMAL) Differential, auto (06/17/2022 9:17 PM CDT) Neutrophil abs 4.5 1.7 - 6.5 K/cumm [facility] Imm gran abs 0.1 0.0 - 0.1 K/cumm [facility] Lymphocyte abs 1.5 0.8 - 3.3 K/cumm [facility] Monocyte abs 1.4(H) 0.2 - 0.8 K/cumm [facility] Eosinophil abs 0.3 0.0 - 0.5 K/cumm [facility] Basophil abs 0.0 0.0 - 0.1 K/cumm [facility] Neutrophil pct 58.5 % [facility] Comment: Interpretive Data Percent cell count reference ranges are not reported, since discordance with absolute values may lead to misinterpretation of CBC data. Current Interpretive Data was last revised on 2017. Imm gran pct 1.0 % [facility] Comment: Interpretive Data Percent cell count reference ranges are not reported, since discordance with absolute values may lead to misinterpretation of CBC data. Current Interpretive Data was last revised on 2017. Lymphocyte pct 19.0 % [facility] Comment: Interpretive Data Percent cell count reference ranges are not reported, since discordance with absolute values may lead to misinterpretation of CBC data. Current Interpretive Data was last revised on 2017. Monocyte pct 17.6 % [facility] Comment: Interpretive Data Percent cell count reference ranges are not reported, since discordance with absolute values may lead to misinterpretation of CBC data. Current Interpretive Data was last revised on 2017. Eosinophil pct 3.5 % [facility] Comment: Interpretive Data Percent cell count reference ranges are not reported, since discordance with absolute values may lead to misinterpretation of CBC data. Current Interpretive Data was last revised on 2017. Basophil pct 0.4 % [facility] Comment: Interpretive Data Percent cell count reference ranges are not reported, since discordance with absolute values may lead to misinterpretation of CBC data. Current Interpretive Data was last revised on 2017. Blood 06/17/2022 9:17 PM CDT 06/17/2022 9:26 PM CDT us Marcelina Lo CHIEF AIRLINE RADIO OPERATOR LAB BLOOD ORDERABLES Final Re sult [facility] Department [place] [address] * Lactate (06/17/2022 9:17 PM CDT) Lactate 1.3 0.7 - 2.0 mmol/L [facility] Blood 06/17/2022 9:17 PM CDT 06/17/2022 9:29 PM CDT us Catherine Adams MD LAB BLOOD ORDERABLES Final Result Performing Organization Address City/[facility]/ZIP Co de Phone Number [facility] Department [place] [address] * (ABNORMAL) Triglycerides (06/17/2022 9:17 PM CDT) Triglycerides 272(H) <=149 mg/dL [facility] Comment: Interpretive Data Ages < or [...] Interpretive Data was last revised on 2018. Blood 06/17/2022 9:17 PM CDT 06/17/2022 9:27 PM CDT Narrative [facility] - 06/17/2022 10:11 PM CDT While on propofol infusion. Catherine Adams MD LAB BLOOD ORDERABLES Final Result [facility] Department [place] [address] * (ABNORMAL) Phosphorus (06/17/2022 9:17 PM CDT) Phosphorus, pl 5.8(H) 2.3 - 4.5 mg/dL [facility] Blood 06/17/2022 9:17 PM CDT 06/17/2022 9:27 PM CDT Marcelina Lo CHIEF AIRLINE RADIO OPERATOR LAB BLOOD ORDERABLES Final Re sult Performing Organization Address City/[facility]/ZIP Co de Phone Number [facility] [place] [address] * Beta-hydroxybutyrate (06/17/2022 9:17 PM CDT) Pathologist [facility] Beta-Hydroxybut yrate 0.1 0.0 - 0.5 mmol/L [facility] Blood 06/17/2022 9:17 PM CDT 06/17/2022 9:26 PM CDT Marcelina Lo CHIEF AIRLINE RADIO OPERATOR LAB BLOOD ORDERABLES Final Re sult Performing Organization Address [facility] Co de Phone Number [facility] [place] [address] * Lipase (06/17/2022 9:17 PM CDT) Pathologist [facility] Lipase 22 10 - 99 Units/L [facility] Blood 06/17/2022 9:17 PM CDT 06/17/2022 9:27 PM CDT Marcelina Lo CHIEF AIRLINE RADIO OPERATOR LAB BLOOD ORDERABLES Final Re sult Performing Organization Address [facility] Co de Phone Number [facility] [place] [address] * (ABNORMAL) CBC with auto differential (06/17/2022 9:17 PM CDT) [facility] WBC 7.7 3.8 - 9.9 K/cumm [facility] Hgb 6.2(C) 13.0 - 17.5 g/dL [facility] Comment:Critical result call ed to and read back by MINERVA CLINTON RN on 06 17 2022 at 2214 to BRIAN BATES. Hct 19.1(L) 38.9 - 50.3 % [facility] Plt 300 150 - 400 K/cumm [facility] MPV 10.1 9.1 - 12.3 fL [facility] RBC 1.98(L) 4.30 - 5.80 M/cumm [facility] MCV 96.5(H) 81.3 - 96.4 fL [facility] MCH 31.3 27.1 - 33.3 pg [facility] MCHC 32.5 32.3 - 35.7 g/dL [facility] RDW CV 15.9(H) 11.1 - 14.9 % [facility] RDW SD 50.9(H) 35.7 - 48.1 fL [facility] NRBC abs 0.00 0.00 - 0.01 K/cumm [facility] Blood 06/17/2022 9:17 PM CDT 06/17/2022 9:26 PM CDT us Marcelina Lo NP LAB BLOOD ORDERABLES Final Re sult Performing Organization Address City/[facility]/ZIP Co de Phone Number [facility] Department [place] [address] * POCT glucose (06/17/2022 8:52 PM CDT) Glucose, POC 129 70 - 199 mg/dL [facility] Blood 06/17/2022 8:52 PM CDT 06/17/2022 8:52 PM CDT us Catherine Adams MD LAB POCT ORDERABLES - DEVIC E Final Result [facility] Department [place] [address] * POCT glucose (06/17/2022 7:40 PM CDT) Glucose, POC 118 70 - 199 mg/dL [facility] Blood 06/17/2022 7:40 PM CDT 06/17/2022 7:40 PM CDT us Catherine Adams MD LAB POCT ORDERABLES - DEVIC E Final Result [facility] AVILA [facility] Department [place] [address] * [place] INSJ NON-TUNNELED CENTRAL VENOUS CATH AGE 3 YR/> (06/17/2022 7:30 PM CDT) Narrative Rufino Flores MD - 06/17/2022 7:30 PM CDT Aj Poe MD ? 06/17/2022 ??7:37 PM Central Line Insertion Date/Time: 06/17/2022 7:30 PM Performed by: Aj Poe MD Authorized by: Aj Poe MD [place] Protocol: RN Notified of Procedure: yes ?? Informed consent: ??Patient/strategic partnership representative/guardian agrees and accepts and risks, benefits, alternatives discussed Patient's stated name/ matches armband: ??Patient unable to verbalize - armband matched to name and within medical record Allergies confirmed: yes ?? Consent form signed, dated, timed; matches correct patient, intended procedure and site: ??YesImmediately prior to the procedure a time out was called: a verbal verification by the procedure participants confirmed correct patient identity, correct site/side marked and visible (if applicable); agreement on procedure to be done; and correct patient positioning ?? Indications: ??Dialysis Anesthesia (see MAR for exact dosage) Anesthesia method: ??Local infiltration Local anesthetic: ??Lidocaine 1% Patient position: ??Flat Skin preparation: ??Skin prepped with 2% chlorhexidine Provider preparation: ??Cap, full body drape, gloves, gown, handwashing and mask Location: ??Left femoral Ultrasound guidance: ??Used for site marking, used for needle insertion and sterile probe cover used Needle inserted, vein idenitified then guidewire inserted easily into vein: No ?? Successful placement: No ?? First attempted left IJ HD line placement. Unable to pass micropuncture wire or stiff wire beyond about 10cm of wire. Next tried left femoral line. Passed wire without difficulty with supine position, but after dilation steps while advancing the catheter the patient flexed his hips, causing the catheter to kink. Given moderate venous bleeding, I decided to abort the procedure and hold pressure for 25 minutes. Hemostasis was achieved at this interval. Discuss failure to place a line with Ronny Brody, the patient's brother. us Aj Poe MD IN CLINIC/BEDSIDE ORDERABLES Fin al Result * POCT glucose (06/17/2022 5:11 PM CDT) Glucose, POC 133 70 - 199 mg/dL [facility] Blood 06/17/2022 5:11 PM CDT 06/17/2022 5:11 PM CDT us Catherine Adams MD LAB POCT ORDERABLES - DEVIC E Final Result Performing Organization Address [facility] de Phone Number [facility] Department [place] [address] * POCT glucose (06/17/2022 3:01 PM CDT) Glucose, POC 142 70 - 199 mg/dL [facility] Blood 06/17/2022 3:01 PM CDT 06/17/2022 3:01 PM CDT Result [facility] Catherine Adams MD LAB POCT ORDERABLES - DEVIC E Final Result Performing Organization Address [facility] Co de Phone Number [facility] Department [place] [address] * POCT glucose (06/17/2022 1:50 PM CDT) Glucose, POC 141 70 - 199 mg/dL [facility] Blood 06/17/2022 1:50 PM CDT 06/17/2022 1:50 PM CDT us Catherine Adams MD LAB POCT ORDERABLES - DEVIC E Final Result [facility] [place] [address] * POCT glucose (06/17/2022 12:59 PM CDT) Glucose, POC 151 70 - 199 mg/dL [facility] Blood 06/17/2022 12:5 9 PM CDT 06/17/2022 12:59 PM CDT us Catherine Adams MD LAB POCT ORDERABLES - DEVIC E Final Result Performing Organization Address [facility] [place] [address] * POCT glucose (06/17/2022 11:55 AM CDT) Glucose, POC 167 70 - 199 mg/dL [facility] Blood 06/17/2022 11:5 5 AM CDT 06/17/2022 11:55 AM CDT us Catherine Adams MD LAB POCT ORDERABLES - DEVIC E Final Result Performing Organization Address City/[facility]/ZIP Co de Phone Number [facility] [place] [address] * POCT glucose (06/17/2022 10:51 AM CDT) Glucose, POC 185 70 - 199 mg/dL [facility] Blood 06/17/2022 10:5 1 AM CDT 06/17/2022 10:51 AM CDT us Catherine Adams MD LAB POCT ORDERABLES - DEVIC E Final Result [facility] [place] [address] * POCT glucose (06/17/2022 10:11 AM CDT) Glucose, POC 119 70 - 199 mg/dL [facility] Blood 06/17/2022 10:1 1 AM CDT 06/17/2022 10:11 AM CDT Catherine Adams MD LAB POCT ORDERABLES - DEVIC E Final Result Performing Organization Address [facility] Co de Phone Number [facility] Department [place] [address] * POCT glucose (06/17/2022 9:39 AM CDT) Glucose, POC 181 70 - 199 mg/dL [facility] Blood 06/17/2022 9:39 AM CDT 06/17/2022 9:39 AM CDT Catherine Adams MD LAB POCT ORDERABLES - DEVIC E Final Result Performing Organization Address [facility] de Phone Number [facility] Department [place] [address] * Blood culture Blood (06/17/2022 8:13 AM CDT) Report Final Report: No growth [facility] Blood 06/17/2022 8:13 AM CDT 06/17/2022 8:24 AM CDT Narrative [facility] - 06/21/2022 12:00 PM CDT 1. ?Blood cultures are incubated for 4 days on a continuously monitored blood culture system. The first report of a negative culture is issued within 24 hours of receipt of the specimen in the laboratory. 2. ?Positive culture results are reported as soon as they are detected. 3. ?The most important factor for detection of microbes in the setting of bloodstream infection is the volume of blood submitted for culture. Failure to collect an optimal blood volume can result in false negative blood cultures. For pediatric patients, the recommended blood volume to collect is 1 mL of blood per year of patient age (up to 20 mL) per blood culture set. For adult patients, 20 mL of blood, divided equally between aerobic and anaerobic blood culture bottles, is recommended for each blood culture set. 4. ?For blood cultures with Gram-positive cocci, a rapid molecular test for organism identification may be performed using the [employer] Gram-Positive Blood Culture Assay. This assay detects microbial DNA in positive blood culture broth via hybridization of target DNA to capture oligonucleotides on a microarray. This assay has been cleared by the [place] Food and Drug Administration and its performance characteristics have been verified by the [facility]. 5. ?For questions about this culture, contact the Microbiology Laboratory at [phone]. Interpretive data was last revised on 2020. Catherine Adams MD LAB MICROBIOLOGY - GENERAL ORDERABLES Final Result [facility] Department [place] [address] * Blood culture Blood (06/17/2022 8:13 AM CDT) Report Final Report: No growth [facility] Blood 06/17/2022 8:13 AM CDT 06/17/2022 8:23 AM CDT Narrative [facility] - 06/21/2022 12:00 PM CDT 1. ?Blood cultures are incubated for 4 days on a continuously monitored blood culture system. The first report of a negative culture is issued within 24 hours of receipt of the specimen in the laboratory. 2. ?Positive culture results are reported as soon as they are detected. 3. ?The most important factor for detection of microbes in the setting of bloodstream infection is the volume of blood submitted for culture. Failure to collect an optimal blood volume can result in false negative blood cultures. For pediatric patients, the recommended blood volume to collect is 1 mL of blood per year of patient age (up to 20 mL) per blood culture set. For adult patients, 20 mL of blood, divided equally between aerobic and anaerobic blood culture bottles, is recommended for each blood culture set. 4. ?For blood cultures with Gram-positive cocci, a rapid molecular test for organism identification may be performed using the [employer] Gram-Positive Blood Culture Assay. This assay detects microbial DNA in positive blood culture broth via hybridization of target DNA to capture oligonucleotides on a microarray. This assay has been cleared by the [place] Food and Drug Administration and its performance characteristics have been verified by the [facility]. 5. ?For questions about this culture, contact the Microbiology Laboratory at [phone]. Interpretive data was last revised on 2020. us Catherine Adams MD LAB MICROBIOLOGY - GENERAL ORDERABLES Final Result [facility] Department [place] [address] * (ABNORMAL) eGFR (06/17/2022 8:02 AM CDT) eGFR 13(L) 90 - 130 mL/min/1. 73 m2 [facility] Comment: Interpretive Data Reference Interval Normal [...] interpretive data was last reviewed 2021. Blood 06/17/2022 8:02 AM CDT 06/17/2022 8:25 AM CDT us Marcelina Lo CHIEF AIRLINE RADIO OPERATOR LAB BLOOD ORDERABLES Final Re sult [facility] Department [place] [address] * (ABNORMAL) Differential, auto (06/17/2022 8:02 AM CDT) Neutrophil abs 5.2 1.7 - 6.5 K/cumm [facility] Imm gran abs 0.1 0.0 - 0.1 K/cumm [facility] Lymphocyte abs 1.6 0.8 - 3.3 K/cumm [facility] Monocyte abs 1.3(H) 0.2 - 0.8 K/cumm [facility] Eosinophil abs 0.2 0.0 - 0.5 K/cumm [facility] Basophil abs 0.1 0.0 - 0.1 K/cumm [facility] Neutrophil pct 61.7 % [facility] Comment: Interpretive Data Percent cell count reference ranges are not reported, since discordance with absolute values may lead to misinterpretation of CBC data. Current Interpretive Data was last revised on 2017. Imm gran pct 1.3 % [facility] Comment: Interpretive Data Percent cell count reference ranges are not reported, since discordance with absolute values may lead to misinterpretation of CBC data. Current Interpretive Data was last revised on 2017. Lymphocyte pct 18.6 % [facility] Comment: Interpretive Data Percent cell count reference ranges are not reported, since discordance with absolute values may lead to misinterpretation of CBC data. Current Interpretive Data was last revised on 2017. Monocyte pct 15.2 % [facility] Comment: Interpretive Data Percent cell count reference ranges are not reported, since discordance with absolute values may lead to misinterpretation of CBC data. Current Interpretive Data was last revised on 2017. Eosinophil pct 2.6 % [facility] Comment: Interpretive Data Percent cell count reference ranges are not reported, since discordance with absolute values may lead to misinterpretation of CBC data. Current Interpretive Data was last revised on 2017. Basophil pct 0.6 % [facility] Comment: Interpretive Data Percent cell count reference ranges are not reported, since discordance with absolute values may lead to misinterpretation of CBC data. Current Interpretive Data was last revised on 2017. Blood 06/17/2022 8:02 AM CDT 06/17/2022 8:25 AM CDT us Marcelina Lo CHIEF AIRLINE RADIO OPERATOR LAB BLOOD ORDERABLES Final Re sult Performing Organization Address [facility] Co de Phone Number [facility] Department [place] [address] * (ABNORMAL) Magnesium (06/17/2022 8:02 AM CDT) Pathologist [facility] Magnesium 2.9(H) 1.4 - 2.5 mg/dL [facility] Blood 06/17/2022 8:02 AM CDT 06/17/2022 8:25 AM CDT Marcelina Lo CHIEF AIRLINE RADIO OPERATOR LAB BLOOD ORDERABLES Final Re sult Performing Organization Address [facility] Co de Phone Number [facility] [place] [address] * (ABNORMAL) Comprehensive metabolic panel (06/17/2022 8:02 AM CDT) Sodium 140 135 - 145 mmol/L [facility] Potassium, pl 3.9 3.3 - 4.9 mmol/L [facility] Chloride 104 97 - 110 mmol/L [facility] CO2 24 22 - 32 mmol/L [facility] Anion gap 12 2 - 15 mmol/L [facility] BUN 41(H) 8 - 25 mg/dL [facility] Creatinine 5.16(H) 0.80 - 1.30 mg/dL [facility] Glucose 206(H) 70 - 199 mg/dL [facility] Comment: Interpretive Data Fasting glucose >/= [...] classification and Diagnosis of Diabetes Diabetes Care 2017;40 (Suppl. 1):S11. Current interpretive data was last revised 2017. Calcium 9.1 8.5 - 10.3 mg/dL [facility] Bilirubin, total 0.4 0.1 - 1.2 mg/dL [facility] Protein, pl 6.9 6.5 - 8.5 g/dL [facility] Albumin 3.0(L) 3.5 - 5.0 g/dL [facility] Alk phos 199(H) 40 - 130 Units/L [facility] ALT 35 7 - 55 Units/L [facility] AST 43 10 - 50 Units/L [facility] Blood 06/17/2022 8:02 AM CDT 06/17/2022 8:25 AM CDT us Marcelina Lo NP LAB BLOOD ORDERABLES Final Re sult [facility] One [facility] [place] [address] * (ABNORMAL) CBC with auto differential (06/17/2022 8:02 AM CDT) WBC 8.5 3.8 - 9.9 K/cumm [facility] Hgb 7.9(L) 13.0 - 17.5 g/dL [facility] Hct 24.6(L) 38.9 - 50.3 % [facility] Plt 262 150 - 400 K/cumm [facility] MPV 10.1 9.1 - 12.3 fL [facility] RBC 2.55(L) 4.30 - 5.80 M/cumm [facility] MCV 96.5(H) 81.3 - 96.4 fL [facility] MCH 31.0 27.1 - 33.3 pg [facility] MCHC 32.1(L) 32.3 - 35.7 g/dL [facility] RDW CV 15.6(H) 11.1 - 14.9 % [facility] RDW SD 49.9(H) 35.7 - 48.1 fL [facility] NRBC abs 0.00 0.00 - 0.01 K/cumm [facility] Blood 06/17/2022 8:02 AM CDT 06/17/2022 8:25 AM CDT us Marcelina Lo CHIEF AIRLINE RADIO OPERATOR LAB BLOOD ORDERABLES Final Re sult Performing Organization Address City/[facility]/ZIP Co de Phone Number [facility] Department [place] [address] * (ABNORMAL) POCT glucose (06/17/2022 7:37 AM CDT) Glucose, POC 202(H) 70 - 199 mg/dL [facility] Blood 06/17/2022 7:37 AM CDT 06/17/2022 7:37 AM CDT us Catherine Adams MD LAB POCT ORDERABLES - DEVIC E Final Result [facility] [place] [address] * (ABNORMAL) aPTT (06/17/2022 6:14 AM CDT) aPTT 64(H) 27 - 37 sec [facility] Comment: Interpretive Data Therapeutic heparin range: 60.0 - 94.0 seconds. Based on correlation with therapeutic heparin activity range of 0.3-0.7 Units/mL. Current interpretive data was last revised on 2020. Blood 06/17/2022 6:14 AM CDT 06/17/2022 7:27 AM CDT Narrative [facility] - 06/17/2022 7:50 AM CDT Draw STAT PTT 6 hrs after initiation of heparin infusion, draw STAT PTT 6 hours after each dose/rate change, and every 6 hours until 2 consecutive PTTs are within therapeutic range. Once two consecutive PTT's are therapeutic (60-94.9 seconds), then draw PTT every AM until heparin is discontinued. Catherine Adams MD LAB BLOOD ORDERABLES Final Result [facility] Department [place] [address] * (ABNORMAL) POCT glucose (06/17/2022 6:13 AM CDT) [facility] Signature Glucose, POC 234(H) 70 - 199 mg/dL [facility] Blood 06/17/2022 6:13 AM CDT 06/17/2022 6:13 AM CDT Catherine Adams MD LAB POCT ORDERABLES - DEVIC E Final Result Performing Organization Address City/[facility]/ZIP Co de Phone Number [facility] Department [place] [address] * XR Chest 1 View (06/17/2022 5:29 AM CDT) Anatomical Region Laterality Modality Body, Chest N/A Computed Radiogr aphy 06/17/2022 9:22 AM CDT Impressions 06/17/2022 9:22 AM CDT First exam: Comparison is made to chest radiograph dated 06/16/2022 at 3:42 AM. Endotracheal tube terminates 5 cm above the boni. Gastric tube extends below diaphragm and terminates out of the field of view. Hypoinflated lungs with bibasilar atelectasis, similar to prior study. No right pleural effusion. A small left pleural effusion may be present. No pneumothorax. Stable cardiomediastinal silhouette. Second exam: No significant interval change. Electronically signed by: Nida Sharpe M.D. Narrative 06/17/2022 9:22 AM CDT Examination: 1. Chest one view, 06/16/2022 at 7:38 PM 2. Chest one view, 06/17/2022 Procedure Note Nida Sharpe MD - 06/17/2022 Examination: 1. Chest one view, 06/16/2022 at 7:38 PM 2. Chest one view, 06/17/2022 IMPRESSION: First exam: Comparison is made to chest radiograph dated 06/16/2022 at 3:42 AM. Endotracheal tube terminates 5 cm above the boni. Gastric tube extends below diaphragm and terminates out of the field of view. Hypoinflated lungs with bibasilar atelectasis, similar to prior study. No right pleural effusion. A small left pleural effusion may be present. No pneumothorax. Stable cardiomediastinal silhouette. Second exam: No significant interval change. Electronically signed by: Nida Sharpe M.D. Catherine Adams MD IMG XR PROCEDURES Final Res ult * POCT glucose (06/17/2022 4:53 AM CDT) Pathologist [facility] Glucose, POC 176 70 - 199 mg/dL [facility] Blood 06/17/2022 4:53 AM CDT 06/17/2022 4:53 AM CDT Catherine Adams MD LAB POCT ORDERABLES - DEVIC E Final Result [facility] One [facility] Department [place] [address] * (ABNORMAL) Blood gas, arterial (06/17/2022 3:46 AM CDT) Pathologist [facility] pH, Art 7.32(L) 7.35 - 7.45 [facility] PCO2, Arterial 44 35 - 45 mmHg [facility] PO2, Arterial 93 83 - 108 mmHg [facility] HCO3 Art (Calculated) 24 20 - 30 mmol/L [facility] BE, art -3 mmol/L [facility] Comment: Interpretive Data No Reference Range Established Current Interpretive Data was last revised on 2017 O2 Sat Art (Measured) 96(H) 90 - 95 % [facility] Blood 06/17/2022 3:46 AM CDT 06/17/2022 3:52 AM CDT us Marcelina Lo NP LAB BLOOD ORDERABLES Final Re sult Performing Organization Address [facility] de Phone Number [facility] Department [place] [address] * POCT glucose (06/17/2022 3:44 AM CDT) Glucose, POC 94 70 - 199 mg/dL [facility] Blood 06/17/2022 3:44 AM CDT 06/17/2022 3:44 AM CDT us Catherine Adams MD LAB POCT ORDERABLES - DEVIC E Final Result Performing Organization Address [facility] Co de Phone Number [facility] Department [place] [address] * POCT glucose (06/17/2022 2:52 AM CDT) Glucose, POC 119 70 - 199 mg/dL [facility] Blood 06/17/2022 2:52 AM CDT 06/17/2022 2:52 AM CDT us Catherine Adams MD LAB POCT ORDERABLES - DEVIC E Final Result Performing Organization Address [facility] Co de Phone Number [facility] Department [place] [address] * POCT glucose (06/17/2022 1:52 AM CDT) Glucose, POC 127 70 - 199 mg/dL [facility] Blood 06/17/2022 1:52 AM CDT 06/17/2022 1:52 AM CDT Catherine Adams MD LAB POCT ORDERABLES - DEVIC E Final Result Performing Organization Address City/[facility]/[place] [address] * POCT glucose (06/17/2022 12:36 AM CDT) Glucose, POC 165 70 - 199 mg/dL [facility] Blood 06/17/2022 12:3 6 AM CDT 06/17/2022 12:36 AM CDT Catherine Adams MD LAB POCT ORDERABLES - DEVIC E Final Result Performing Organization Address City/[facility] [place] [address] * (ABNORMAL) aPTT (06/17/2022 12:36 AM CDT) aPTT 67(H) 27 - 37 sec [facility] Comment: Interpretive Data Therapeutic heparin range: 60.0 - 94.0 seconds. Based on correlation with therapeutic heparin activity range of 0.3-0.7 Units/mL. Current interpretive data was last revised on 2020. Blood 06/17/2022 12:3 6 AM CDT 06/17/2022 1:04 AM CDT Narrative [facility] - 06/17/2022 1:09 AM CDT Draw STAT PTT 6 hrs after initiation of heparin infusion, draw STAT PTT 6 hours after each dose/rate change, and every 6 hours until 2 consecutive PTTs are within therapeutic range. Once two consecutive PTT's are therapeutic (60-94.9 seconds), then draw PTT every AM until heparin is discontinued. Catherine Adams MD LAB BLOOD ORDERABLES Final Result Performing Organization Address [facility] Co de Phone Number [facility] [place] [address] * (ABNORMAL) Blood gas, arterial (06/16/2022 11:19 PM CDT) pH, Art 7.38 7.35 - 7.45 [facility] PCO2, Arterial 37 35 - 45 mmHg [facility] PO2, Arterial 99 83 - 108 mmHg [facility] HCO3 Art (Calculated) 22 20 - 30 mmol/L [facility] BE, art -3 mmol/L [facility] Comment: Interpretive Data No Reference Range Established Current Interpretive Data was last revised on 2017 O2 Sat Art (Measured) 97(H) 90 - 95 % [facility] Blood 06/16/2022 11:1 9 PM CDT 06/16/2022 11:24 PM CDT Result [facility] Marcelina Lo NP LAB BLOOD ORDERABLES Final Re sult Performing Organization Address [facility] de Phone Number [facility] Department [place] [address] * POCT glucose (06/16/2022 11:11 PM CDT) Glucose, POC 172 70 - 199 mg/dL [facility] Blood 06/16/2022 11:1 1 PM CDT 06/16/2022 11:11 PM CDT Catherine Adams MD LAB POCT ORDERABLES - DEVIC E Final Result Performing Organization Address [facility] Co de Phone Number [facility] Department [place] [address] * POCT glucose (06/16/2022 10:07 PM CDT) Glucose, POC 166 70 - 199 mg/dL [facility] Blood 06/16/2022 10:0 7 PM CDT 06/16/2022 10:07 PM CDT us Catherine Adams MD LAB POCT ORDERABLES - DEVIC E Final Result [facility] [place] [address] * XR Chest 1 View (06/16/2022 9:03 PM CDT) Anatomical Region Laterality Modality Body, Chest N/A Computed Radiogr aphy 06/17/2022 9:22 AM CDT Impressions 06/17/2022 9:22 AM CDT First exam: Comparison is made to chest radiograph dated 06/16/2022 at 3:42 AM. Endotracheal tube terminates 5 cm above the boni. Gastric tube extends below diaphragm and terminates out of the field of view. Hypoinflated lungs with bibasilar atelectasis, similar to prior study. No right pleural effusion. A small left pleural effusion may be present. No pneumothorax. Stable cardiomediastinal silhouette. Second exam: No significant interval change. Electronically signed by: Nida Sharpe M.D. Narrative 06/17/2022 9:22 AM CDT Examination: 1. Chest one view, 06/16/2022 at 7:38 PM 2. Chest one view, 06/17/2022 Procedure Note Nida Sharpe MD - 06/17/2022 Examination: 1. Chest one view, 06/16/2022 at 7:38 PM 2. Chest one view, 06/17/2022 IMPRESSION: First exam: Comparison is made to chest radiograph dated 06/16/2022 at 3:42 AM. Endotracheal tube terminates 5 cm above the boni. Gastric tube extends below diaphragm and terminates out of the field of view. Hypoinflated lungs with bibasilar atelectasis, similar to prior study. No right pleural effusion. A small left pleural effusion may be present. No pneumothorax. Stable cardiomediastinal silhouette. Second exam: No significant interval change. Electronically signed by: Nida Sharpe M.D. us Jeffrey Green MD IMG XR PROCEDURES Final Res ult * (ABNORMAL) eGFR (06/16/2022 8:52 PM CDT) Pathologist [facility] eGFR 14(L) 90 - 130 mL/min/1. 73 m2 [facility] Comment: Interpretive Data Reference Interval Normal [...] interpretive data was last reviewed 2021. Blood 06/16/2022 8:52 PM CDT 06/16/2022 9:10 PM CDT us Marcelina Lo CHIEF AIRLINE RADIO OPERATOR LAB BLOOD ORDERABLES Final Re sult [facility] Department [place] [address] * (ABNORMAL) Differential, auto (06/16/2022 8:52 PM CDT) Neutrophil abs 5.4 1.7 - 6.5 K/cumm [facility] Imm gran abs 0.2(H) 0.0 - 0.1 K/cumm [facility] Lymphocyte abs 1.0 0.8 - 3.3 K/cumm [facility] Monocyte abs 1.1(H) 0.2 - 0.8 K/cumm [facility] Eosinophil abs 0.2 0.0 - 0.5 K/cumm [facility] Basophil abs 0.0 0.0 - 0.1 K/cumm [facility] Neutrophil pct 68.6 % [facility] Comment: Interpretive Data Percent cell count reference ranges are not reported, since discordance with absolute values may lead to misinterpretation of CBC data. Current Interpretive Data was last revised on 2017. Imm gran pct 2.0 % [facility] Comment: Interpretive Data Percent cell count reference ranges are not reported, since discordance with absolute values may lead to misinterpretation of CBC data. Current Interpretive Data was last revised on 2017. Lymphocyte pct 12.9 % [facility] Comment: Interpretive Data Percent cell count reference ranges are not reported, since discordance with absolute values may lead to misinterpretation of CBC data. Current Interpretive Data was last revised on 2017. Monocyte pct 14.3 % [facility] Comment: Interpretive Data Percent cell count reference ranges are not reported, since discordance with absolute values may lead to misinterpretation of CBC data. Current Interpretive Data was last revised on 2017. Eosinophil pct 1.9 % [facility] Comment: Interpretive Data Percent cell count reference ranges are not reported, since discordance with absolute values may lead to misinterpretation of CBC data. Current Interpretive Data was last revised on 2017. Basophil pct 0.3 % [facility] Comment: Interpretive Data Percent cell count reference ranges are not reported, since discordance with absolute values may lead to misinterpretation of CBC data. Current Interpretive Data was last revised on 2017. Blood 06/16/2022 8:52 PM CDT 06/16/2022 9:02 PM CDT Marcelina Lo CHIEF AIRLINE RADIO OPERATOR LAB BLOOD ORDERABLES Final Re sult Performing Organization Address [facility]/ZIP Co de Phone Number [facility] Department [place] [address] * Lactate (06/16/2022 8:52 PM CDT) Lactate 1.1 0.7 - 2.0 mmol/L [facility] Blood 06/16/2022 8:52 PM CDT 06/16/2022 9:10 PM CDT Catherine Adams MD LAB BLOOD ORDERABLES Final Result Performing Organization Address [facility] de Phone Number [facility] Department [place] [address] * (ABNORMAL) Triglycerides (06/16/2022 8:52 PM CDT) Triglycerides 253(H) <=149 mg/dL [facility] Comment: Interpretive Data Ages < or [...] Interpretive Data was last revised on 2018. Blood 06/16/2022 8:52 PM CDT 06/16/2022 9:10 PM CDT Narrative [facility] - 06/16/2022 9:44 PM CDT While on propofol infusion. Catherine Adams MD LAB BLOOD ORDERABLES Final Result Performing Organization Address [facility] de Phone Number [facility] Department [place] [address] * (ABNORMAL) Phosphorus (06/16/2022 8:52 PM CDT) Phosphorus, pl 5.4(H) 2.3 - 4.5 mg/dL [facility] Blood 06/16/2022 8:52 PM CDT 06/16/2022 9:10 PM CDT Marcelina Lo CHIEF AIRLINE RADIO OPERATOR LAB BLOOD ORDERABLES Final Re sult Performing Organization Address [facility] de Phone Number [facility] Department [place] [address] * Beta-hydroxybutyrate (06/16/2022 8:52 PM CDT) Beta-Hydroxybut yrate 0.1 0.0 - 0.5 mmol/L [facility] Blood 06/16/2022 8:52 PM CDT 06/16/2022 9:02 PM CDT Marcelina Lo CHIEF AIRLINE RADIO OPERATOR LAB BLOOD ORDERABLES Edited R esult - Final Performing Organization Address [facility] de Phone Number [facility] Department [place] [address] * Lipase (06/16/2022 8:52 PM CDT) Pathologist [facility] Lipase 26 10 - 99 Units/L [facility] Blood 06/16/2022 8:52 PM CDT 06/16/2022 9:10 PM CDT Marcelina Lo CHIEF AIRLINE RADIO OPERATOR LAB BLOOD ORDERABLES Final Re sult Performing Organization Address City/[facility]/ZIP Co de Phone Number [facility] [place] [address] * (ABNORMAL) Magnesium (06/16/2022 8:52 PM CDT) [facility] Magnesium 3.0(H) 1.4 - 2.5 mg/dL [facility] Blood 06/16/2022 8:52 PM CDT 06/16/2022 9:10 PM CDT Marcelina Lo CHIEF AIRLINE RADIO OPERATOR LAB BLOOD ORDERABLES Final Re sult Performing Organization Address [facility] [place] [address] * (ABNORMAL) Comprehensive metabolic panel (06/16/2022 8:52 PM CDT) [facility] Sodium 140 135 - 145 mmol/L [facility] Potassium, pl 4.0 3.3 - 4.9 mmol/L [facility] Chloride 104 97 - 110 mmol/L [facility] CO2 25 22 - 32 mmol/L [facility] Anion gap 11 2 - 15 mmol/L [facility] BUN 36(H) 8 - 25 mg/dL [facility] Creatinine 4.65(H) 0.80 - 1.30 mg/dL [facility] Glucose 197 70 - 199 mg/dL [facility] Comment: Interpretive Data Fasting glucose >/= [...] classification and Diagnosis of Diabetes Diabetes Care 2017;40 (Suppl. 1):S11. Current interpretive data was last revised 2017. Calcium 9.3 8.5 - 10.3 mg/dL [facility] Bilirubin, total 0.4 0.1 - 1.2 mg/dL [facility] Protein, pl 6.5 6.5 - 8.5 g/dL [facility] Albumin 2.7(L) 3.5 - 5.0 g/dL [facility] Alk phos 197(H) 40 - 130 Units/L [facility] ALT 35 7 - 55 Units/L [facility] AST 36 10 - 50 Units/L [facility] Blood 06/16/2022 8:52 PM CDT 06/16/2022 9:10 PM CDT us Marcelina Lo CHIEF AIRLINE RADIO OPERATOR LAB BLOOD ORDERABLES Final Re sult [facility] Department [place] [address] * (ABNORMAL) CBC with auto differential (06/16/2022 8:52 PM CDT) WBC 7.9 3.8 - 9.9 K/cumm [facility] Hgb 7.4(L) 13.0 - 17.5 g/dL [facility] Hct 22.8(L) 38.9 - 50.3 % [facility] Plt 214 150 - 400 K/cumm [facility] MPV 10.1 9.1 - 12.3 fL [facility] RBC 2.41(L) 4.30 - 5.80 M/cumm [facility] MCV 94.6 81.3 - 96.4 fL [facility] MCH 30.7 27.1 - 33.3 pg [facility] MCHC 32.5 32.3 - 35.7 g/dL [facility] RDW CV 14.9 11.1 - 14.9 % [facility] RDW SD 47.8 35.7 - 48.1 fL [facility] NRBC abs 0.00 0.00 - 0.01 K/cumm [facility] Blood 06/16/2022 8:52 PM CDT 06/16/2022 9:02 PM CDT Marcelina Lo CHIEF AIRLINE RADIO OPERATOR LAB BLOOD ORDERABLES Final Re sult Performing Organization Address City/[facility]/ZIP Co de Phone Number [facility] [place] [address] * (ABNORMAL) POCT glucose (06/16/2022 8:06 PM CDT) Glucose, POC 230(H) 70 - 199 mg/dL [facility] Blood 06/16/2022 8:06 PM CDT 06/16/2022 8:06 PM CDT Catherine Adams MD LAB POCT ORDERABLES - DEVIC E Final Result Performing Organization Address [facility] Co de Phone Number [facility] [place] [address] * (ABNORMAL) POCT glucose (06/16/2022 7:16 PM CDT) Glucose, POC 250(H) 70 - 199 mg/dL [facility] Blood 06/16/2022 7:16 PM CDT 06/16/2022 7:16 PM CDT Catherine Adams MD LAB POCT ORDERABLES - DEVIC E Final Result Performing Organization Address City/[facility] Co de Phone Number [facility] [place] [address] * (ABNORMAL) POCT glucose (06/16/2022 5:52 PM CDT) Glucose, POC 328(H) 70 - 199 mg/dL [facility] Blood 06/16/2022 5:52 PM CDT 06/16/2022 5:52 PM CDT Result [facility] Catherine Adams MD LAB POCT ORDERABLES - DEVIC E Final Result Performing Organization Address City/[facility]/ZIP Co de Phone Number [facility] Department [place] [address] * (ABNORMAL) aPTT (06/16/2022 4:49 PM CDT) [facility] aPTT 58(H) 27 - 37 sec [facility] Comment: Interpretive Data Therapeutic heparin range: 60.0 - 94.0 seconds. Based on correlation with therapeutic heparin activity range of 0.3-0.7 Units/mL. Current interpretive data was last revised on 2020. Blood 06/16/2022 4:49 PM CDT 06/16/2022 4:55 PM CDT Narrative [facility] - 06/16/2022 5:35 PM CDT Draw STAT PTT 6 hrs after initiation of heparin infusion, draw STAT PTT 6 hours after each dose/rate change, and every 6 hours until 2 consecutive PTTs are within therapeutic range. Once two consecutive PTT's are therapeutic (60-94.9 seconds), then draw PTT every AM until heparin is discontinued. Catherine Adams MD LAB BLOOD ORDERABLES Final Result Performing Organization Address City/[facility]/ZIP Co de Phone Number [facility] Department [place] [address] * (ABNORMAL) POCT glucose (06/16/2022 4:41 PM CDT) Glucose, POC 305(H) 70 - 199 mg/dL [facility] Blood 06/16/2022 4:41 PM CDT 06/16/2022 4:41 PM CDT us Catherine Adams MD LAB POCT ORDERABLES - DEVIC E Final Result Performing Organization Address [facility] Co de Phone Number [facility] [place] [address] * (ABNORMAL) Blood gas, arterial (06/16/2022 3:31 PM CDT) pH, Art 7.41 7.35 - 7.45 [facility] PCO2, Arterial 36 35 - 45 mmHg [facility] PO2, Arterial 82(L) 83 - 108 mmHg [facility] HCO3 Art (Calculated) 23 20 - 30 mmol/L [facility] BE, art -1 mmol/L [facility] Comment: Interpretive Data No Reference Range Established Current Interpretive Data was last revised on 2017 O2 Sat Art (Measured) 96(H) 90 - 95 % [facility] Blood 06/16/2022 3:31 PM CDT 06/16/2022 3:38 PM CDT us Marcelina Lo CHIEF AIRLINE RADIO OPERATOR LAB BLOOD ORDERABLES Final Re sult Performing Organization Address [facility] Co de Phone Number [facility] [place] [address] * (ABNORMAL) POCT glucose (06/16/2022 3:27 PM CDT) Glucose, POC 316(H) 70 - 199 mg/dL [facility] Blood 06/16/2022 3:27 PM CDT 06/16/2022 3:27 PM CDT us Catherine Adams MD LAB POCT ORDERABLES - DEVIC E Final Result Performing Organization Address City/[facility] Co de Phone Number [facility] Department [place] [address] * (ABNORMAL) POCT glucose (06/16/2022 1:00 PM CDT) Glucose, POC 327(H) 70 - 199 mg/dL [facility] Blood 06/16/2022 1:00 PM CDT 06/16/2022 1:00 PM CDT us Catherine Adams MD LAB POCT ORDERABLES - DEVIC E Final Result [facility] [place] [address] * (ABNORMAL) eGFR (06/16/2022 12:57 PM CDT) eGFR 15(L) 90 - 130 mL/min/1. 73 m2 [facility] Comment: Interpretive Data Reference Interval [...] interpretive data was last reviewed 2021. Blood 06/16/2022 12:5 7 PM CDT 06/16/2022 2:29 PM CDT Catherine Adams MD LAB BLOOD ORDERABLES Final Result Performing Organization Address City/[facility]/ZIP Co de Phone Number [facility] Department [place] [address] * (ABNORMAL) Basic metabolic panel (06/16/2022 12:57 PM CDT) Pathologist [facility] Sodium 137 135 - 145 mmol/L [facility] Potassium, pl 3.9 3.3 - 4.9 mmol/L [facility] Chloride 101 97 - 110 mmol/L [facility] CO2 26 22 - 32 mmol/L [facility] Anion gap 10 2 - 15 mmol/L [facility] BUN 33(H) 8 - 25 mg/dL [facility] Creatinine 4.34(H) 0.80 - 1.30 mg/dL [facility] Glucose 340(H) 70 - 199 mg/dL [facility] Comment: Interpretive Data Fasting glucose >/= [...] classification and Diagnosis of Diabetes Diabetes Care 2017;40 (Suppl. 1):S11. Current interpretive data was last revised 2017. Calcium 9.0 8.5 - 10.3 mg/dL [facility] Blood 06/16/2022 12:5 7 PM CDT 06/16/2022 2:29 PM CDT Catherine Adams MD LAB BLOOD ORDERABLES Final Result Performing Organization Address City/[facility]/ZIP Co de Phone Number [facility] Department [place] [address] * (ABNORMAL) Blood gas, arterial (06/16/2022 10:54 AM CDT) Pathologist [facility] pH, Art 7.40 7.35 - 7.45 [facility] PCO2, Arterial 38 35 - 45 mmHg [facility] PO2, Arterial 66(L) 83 - 108 mmHg [facility] HCO3 Art (Calculated) 24 20 - 30 mmol/L [facility] BE, art -1 mmol/L [facility] Comment: Interpretive Data No Reference Range Established Current Interpretive Data was last revised on 2017 O2 Sat Art (Measured) 92 90 - 95 % [facility] Blood 06/16/2022 10:5 4 AM CDT 06/16/2022 11:01 AM CDT Marcelina Lo NP LAB BLOOD ORDERABLES Final Re sult Performing Organization Address City/[facility]/ZIP Co de Phone Number [facility] [place] [address] * (ABNORMAL) POCT glucose (06/16/2022 10:50 AM CDT) [facility] Glucose, POC 393(H) 70 - 199 mg/dL [facility] Blood 06/16/2022 10:5 0 AM CDT 06/16/2022 10:50 AM CDT Catherine Adams MD LAB POCT ORDERABLES - [place] [address] * (ABNORMAL) aPTT (06/16/2022 9:14 AM CDT) [facility] aPTT 54(H) 27 - 37 sec [facility] Comment: Interpretive Data Therapeutic heparin range: 60.0 - 94.0 seconds. Based on correlation with therapeutic heparin activity range of 0.3-0.7 Units/mL. Current interpretive data was last revised on 2020. Blood 06/16/2022 9:14 AM CDT 06/16/2022 9:33 AM CDT Narrative [facility] - 06/16/2022 9:58 AM CDT Draw STAT PTT 6 hrs after initiation of heparin infusion, draw STAT PTT 6 hours after each dose/rate change, and every 6 hours until 2 consecutive PTTs are within therapeutic range. Once two consecutive PTT's are therapeutic (60-94.9 seconds), then draw PTT every AM until heparin is discontinued. Catherine Adams MD LAB BLOOD ORDERABLES Final Result Performing Organization Address City/[facility]/ZIP Co de Phone Number [facility] [place] [address] * Beta-hydroxybutyrate (06/16/2022 7:54 AM CDT) Pathologist [facility] Beta-Hydroxybut yrate 0.1 0.0 - 0.5 mmol/L [facility] Blood 06/16/2022 7:54 AM CDT 06/16/2022 8:10 AM CDT Catherine Adams MD LAB BLOOD ORDERABLES Final Result Performing Organization Address [facility] de Phone Number [facility] Department [place] [address] * (ABNORMAL) eGFR (06/16/2022 7:54 AM CDT) eGFR 16(L) 90 - 130 mL/min/1. 73 m2 [facility] Comment: Interpretive Data Reference Interval [...] interpretive data was last reviewed 2021. Blood 06/16/2022 7:54 AM CDT 06/16/2022 8:06 AM CDT us Marcelina Lo CHIEF AIRLINE RADIO OPERATOR LAB BLOOD ORDERABLES Final Re sult [facility] Department [place] [address] * (ABNORMAL) Differential, auto (06/16/2022 7:54 AM CDT) Neutrophil abs 6.3 1.7 - 6.5 K/cumm [facility] Imm gran abs 0.4(H) 0.0 - 0.1 K/cumm [facility] Lymphocyte abs 1.0 0.8 - 3.3 K/cumm [facility] Monocyte abs 1.2(H) 0.2 - 0.8 K/cumm [facility] Eosinophil abs 0.2 0.0 - 0.5 K/cumm [facility] Basophil abs 0.0 0.0 - 0.1 K/cumm [facility] Neutrophil pct 69.4 % [facility] Comment: Interpretive Data Percent cell count reference ranges are not reported, since discordance with absolute values may lead to misinterpretation of CBC data. Current Interpretive Data was last revised on 2017. Imm gran pct 4.3 % [facility] Comment: Interpretive Data Percent cell count reference ranges are not reported, since discordance with absolute values may lead to misinterpretation of CBC data. Current Interpretive Data was last revised on 2017. Lymphocyte pct 11.0 % [facility] Comment: Interpretive Data Percent cell count reference ranges are not reported, since discordance with absolute values may lead to misinterpretation of CBC data. Current Interpretive Data was last revised on 2017. Monocyte pct 13.3 % [facility] Comment: Interpretive Data Percent cell count reference ranges are not reported, since discordance with absolute values may lead to misinterpretation of CBC data. Current Interpretive Data was last revised on 2017. Eosinophil pct 1.7 % [facility] Comment: Interpretive Data Percent cell count reference ranges are not reported, since discordance with absolute values may lead to misinterpretation of CBC data. Current Interpretive Data was last revised on 2017. Basophil pct 0.3 % [facility] Comment: Interpretive Data Percent cell count reference ranges are not reported, since discordance with absolute values may lead to misinterpretation of CBC data. Current Interpretive Data was last revised on 2017. Blood 06/16/2022 7:54 AM CDT 06/16/2022 8:06 AM CDT us Marcelina Lo CHIEF AIRLINE RADIO OPERATOR LAB BLOOD ORDERABLES Final Re sult [facility] Department [place] [address] * (ABNORMAL) Blood gas, arterial (06/16/2022 7:54 AM CDT) pH, Art 7.44 7.35 - 7.45 [facility] PCO2, Arterial 35 35 - 45 mmHg [facility] PO2, Arterial 58(L) 83 - 108 mmHg [facility] HCO3 Art (Calculated) 25 20 - 30 mmol/L [facility] BE, art 0 mmol/L [facility] Comment: Interpretive Data No Reference Range Established Current Interpretive Data was last revised on 2017 O2 Sat Art (Measured) 90 90 - 95 % [facility] Blood 06/16/2022 7:54 AM CDT 06/16/2022 8:01 AM CDT Catherine Adams MD LAB BLOOD ORDERABLES Final Result Performing Organization Address City/[facility]/ZIP Co de Phone Number [facility] Department [place] [address] * (ABNORMAL) Magnesium (06/16/2022 7:54 AM CDT) Magnesium 2.9(H) 1.4 - 2.5 mg/dL [facility] Blood 06/16/2022 7:54 AM CDT 06/16/2022 8:06 AM CDT Marcelina Lo NP LAB BLOOD ORDERABLES Final Re sult Performing Organization Address [facility] Co de Phone Number [facility] [place] [address] * (ABNORMAL) Comprehensive metabolic panel (06/16/2022 7:54 AM CDT) Sodium 136 135 - 145 mmol/L [facility] Potassium, pl 4.2 3.3 - 4.9 mmol/L [facility] Chloride 100 97 - 110 mmol/L [facility] CO2 26 22 - 32 mmol/L [facility] Anion gap 10 2 - 15 mmol/L [facility] BUN 33(H) 8 - 25 mg/dL [facility] Creatinine 4.13(H) 0.80 - 1.30 mg/dL [facility] Glucose 434(H) 70 - 199 mg/dL [facility] Comment: Interpretive Data Fasting glucose >/= [...] classification and Diagnosis of Diabetes Diabetes Care 2017;40 (Suppl. 1):S11. Current interpretive data was last revised 2017. Calcium 8.9 8.5 - 10.3 mg/dL [facility] Bilirubin, total 0.4 0.1 - 1.2 mg/dL [facility] Protein, pl 6.2(L) 6.5 - 8.5 g/dL [facility] Albumin 3.1(L) 3.5 - 5.0 g/dL [facility] Alk phos 218(H) 40 - 130 Units/L [facility] ALT 36 7 - 55 Units/L [facility] AST 42 10 - 50 Units/L [facility] Blood 06/16/2022 7:54 AM CDT 06/16/2022 8:06 AM CDT us Marcelina Lo CHIEF AIRLINE RADIO OPERATOR LAB BLOOD ORDERABLES Final Re sult [facility] Department [place] [address] * (ABNORMAL) CBC with auto differential (06/16/2022 7:54 AM CDT) WBC 9.1 3.8 - 9.9 K/cumm [facility] Hgb 7.5(L) 13.0 - 17.5 g/dL [facility] Hct 22.8(L) 38.9 - 50.3 % [facility] Plt 214 150 - 400 K/cumm [facility] MPV 10.1 9.1 - 12.3 fL [facility] RBC 2.42(L) 4.30 - 5.80 M/cumm [facility] MCV 94.2 81.3 - 96.4 fL [facility] MCH 31.0 27.1 - 33.3 pg [facility] MCHC 32.9 32.3 - 35.7 g/dL [facility] RDW CV 14.6 11.1 - 14.9 % [facility] RDW SD 46.9 35.7 - 48.1 fL [facility] NRBC abs 0.02(H) 0.00 - 0.01 K/cumm [facility] Blood 06/16/2022 7:54 AM CDT 06/16/2022 8:06 AM CDT us Marcelina Lo CHIEF AIRLINE RADIO OPERATOR LAB BLOOD ORDERABLES Final Re sult Performing Organization Address City/[facility] Co de Phone Number [facility] [place] [address] * (ABNORMAL) POCT glucose (06/16/2022 7:52 AM CDT) Glucose, POC 408(H) 70 - 199 mg/dL [facility] Blood 06/16/2022 7:52 AM CDT 06/16/2022 7:52 AM CDT us Catherine Adams MD LAB POCT ORDERABLES - DEVIC E Final Result Performing Organization Address [facility] Co de Phone Number [facility] Department [place] [address] * (ABNORMAL) POCT glucose (06/16/2022 4:52 AM CDT) Glucose, POC 425(H) 70 - 199 mg/dL [facility] Blood 06/16/2022 4:52 AM CDT 06/16/2022 4:52 AM CDT Catherine Adams MD LAB POCT ORDERABLES - DEVIC E Final Result Performing Organization Address City/[facility] Co de Phone Number [facility] [place] [address] * XR Chest 1 View (06/16/2022 4:43 AM CDT) Anatomical Region Laterality Modality Body, Chest N/A Computed Radiogr aphy 06/16/2022 9:29 AM CDT Impressions 06/16/2022 11:17 AM CDT Comparison is made to 06/15/2022. Endotracheal tube tip is difficult to see but likely terminates approximately 6.4 cm above the boni. Gastric tube terminates below left diaphragm and out of the [id number]. There are small lung volumes. Airspace opacity in the left lung base may represent accommodation a small effusion and associated moderate atelectasis. There is mild right basilar atelectasis. No right pleural effusion. No pneumothorax. Dictated by: Mehdi Martines MD The radiology attending physician has personally reviewed this study, and had reviewed and/or edited this written report and agrees with it. Electronically signed by: John Bruno M.D. Narrative 06/16/2022 11:17 AM CDT EXAMINATION: 1 view chest radiograph Procedure Note John Bruno MD - 06/16/2022 EXAMINATION: 1 view chest radiograph IMPRESSION: Comparison is made to 06/15/2022. Endotracheal tube tip is difficult to see but likely terminates approximately 6.4 cm above the boni. Gastric tube terminates below left diaphragm and out of the [id number]. There are small lung volumes. Airspace opacity in the left lung base may represent accommodation a small effusion and associated moderate atelectasis. There is mild right basilar atelectasis. No right pleural effusion. No pneumothorax. Dictated by: Mehdi Martines MD The radiology attending physician has personally reviewed this study, and had reviewed and/or edited this written report and agrees with it. Electronically signed by: John Bruno M.D. Catherine Adams MD IMG XR PROCEDURES Final Res ult * (ABNORMAL) POCT glucose (06/16/2022 12:01 AM CDT) Glucose, POC 239(H) 70 - 199 mg/dL [facility] [facility] Blood 06/16/2022 12:0 1 AM CDT 06/16/2022 12:01 AM CDT Catherine Adams MD LAB POCT ORDERABLES - DEVIC E Final Result Performing Organization Address [facility] de Phone Number [facility] [place] [address] * (ABNORMAL) aPTT (06/16/2022 12:01 AM CDT) Pathologist [facility] aPTT 53(H) 27 - 37 sec [facility] Comment: Interpretive Data Therapeutic heparin range: 60.0 - 94.0 seconds. Based on correlation with therapeutic heparin activity range of 0.3-0.7 Units/mL. Current interpretive data was last revised on 2020. Blood 06/16/2022 12:0 1 AM CDT 06/16/2022 12:14 AM CDT Narrative [facility] - 06/16/2022 12:36 AM CDT Draw STAT PTT 6 hrs after initiation of heparin infusion, draw STAT PTT 6 hours after each dose/rate change, and every 6 hours until 2 consecutive PTTs are within therapeutic range. Once two consecutive PTT's are therapeutic (60-94.9 seconds), then draw PTT every AM until heparin is discontinued. Catherine Adams MD LAB BLOOD ORDERABLES Final Result Performing Organization Address [facility] de Phone Number [facility] Department [place] [address] * (ABNORMAL) CBC without differential (06/16/2022 12:01 AM CDT) [facility] WBC 11.1(H) 3.8 - 9.9 K/cumm [facility] Hgb 7.4(L) 13.0 - 17.5 g/dL [facility] Hct 22.6(L) 38.9 - 50.3 % [facility] Plt 215 150 - 400 K/cumm [facility] MPV 10.3 9.1 - 12.3 fL [facility] RBC 2.38(L) 4.30 - 5.80 M/cumm [facility] MCV 95.0 81.3 - 96.4 fL [facility] MCH 31.1 27.1 - 33.3 pg [facility] MCHC 32.7 32.3 - 35.7 g/dL [facility] RDW CV 14.4 11.1 - 14.9 % [facility] RDW SD 46.4 35.7 - 48.1 fL [facility] NRBC abs 0.05(H) 0.00 - 0.01 K/cumm [facility] Blood 06/16/2022 12:0 1 AM CDT 06/16/2022 12:22 AM CDT Narrative [facility] - 06/16/2022 12:29 AM CDT While on heparin infusion us Catherine Adams MD LAB BLOOD ORDERABLES Final Result [facility] Department [place] [address] * (ABNORMAL) eGFR (06/15/2022 8:51 PM CDT) eGFR 17(L) 90 - 130 mL/min/1. 73 m2 [facility] Comment: Interpretive Data Reference Interval [...] interpretive data was last reviewed 2021. Blood 06/15/2022 8:51 PM CDT 06/15/2022 9:34 PM CDT us Marcelina Lo CHIEF AIRLINE RADIO OPERATOR LAB BLOOD ORDERABLES Final Re sult [facility] Department [place] [address] * (ABNORMAL) Differential, auto (06/15/2022 8:51 PM CDT) Neutrophil abs 8.6(H) 1.7 - 6.5 K/cumm [facility] Imm gran abs 0.8(H) 0.0 - 0.1 K/cumm [facility] Lymphocyte abs 1.4 0.8 - 3.3 K/cumm [facility] Monocyte abs 1.7(H) 0.2 - 0.8 K/cumm [facility] Eosinophil abs 0.2 0.0 - 0.5 K/cumm [facility] Basophil abs 0.0 0.0 - 0.1 K/cumm [facility] Neutrophil pct 67.7 % [facility] Comment: Interpretive Data Percent cell count reference ranges are not reported, since discordance with absolute values may lead to misinterpretation of CBC data. Current Interpretive Data was last revised on 2017. Imm gran pct 6.1 % [facility] Comment: Interpretive Data Percent cell count reference ranges are not reported, since discordance with absolute values may lead to misinterpretation of CBC data. Current Interpretive Data was last revised on 2017. Lymphocyte pct 11.2 % [facility] Comment: Interpretive Data Percent cell count reference ranges are not reported, since discordance with absolute values may lead to misinterpretation of CBC data. Current Interpretive Data was last revised on 2017. Monocyte pct 13.3 % [facility] Comment: Interpretive Data Percent cell count reference ranges are not reported, since discordance with absolute values may lead to misinterpretation of CBC data. Current Interpretive Data was last revised on 2017. Eosinophil pct 1.5 % [facility] Comment: Interpretive Data Percent cell count reference ranges are not reported, since discordance with absolute values may lead to misinterpretation of CBC data. Current Interpretive Data was last revised on 2017. Basophil pct 0.2 % [facility] Comment: Interpretive Data Percent cell count reference ranges are not reported, since discordance with absolute values may lead to misinterpretation of CBC data. Current Interpretive Data was last revised on 2017. Blood 06/15/2022 8:51 PM CDT 06/15/2022 9:34 PM CDT us Marcelina Lo CHIEF AIRLINE RADIO OPERATOR LAB BLOOD ORDERABLES Final Re sult [facility] Department [place] [address] * (ABNORMAL) Triglycerides (06/15/2022 8:51 PM CDT) Triglycerides 227(H) <=149 mg/dL [facility] Comment: Interpretive Data Ages < or [...] Interpretive Data was last revised on 2018. Blood 06/15/2022 8:51 PM CDT 06/15/2022 9:33 PM CDT Narrative [facility] - 06/15/2022 10:00 PM CDT While on propofol infusion. us Catherine Adams MD LAB BLOOD ORDERABLES Final Result Performing Organization Address [facility] de Phone Number [facility] Department [place] [address] * (ABNORMAL) Phosphorus (06/15/2022 8:51 PM CDT) Phosphorus, pl 5.0(H) 2.3 - 4.5 mg/dL [facility] Blood 06/15/2022 8:51 PM CDT 06/15/2022 9:33 PM CDT us Marcelina Lo CHIEF AIRLINE RADIO OPERATOR LAB BLOOD ORDERABLES Final Re sult Performing Organization Address [facility] de Phone Number [facility] Department [place] [address] * Beta-hydroxybutyrate (06/15/2022 8:51 PM CDT) Beta-Hydroxybut yrate 0.2 0.0 - 0.5 mmol/L [facility] Blood 06/15/2022 8:51 PM CDT 06/15/2022 9:26 PM CDT Marcelina Lo CHIEF AIRLINE RADIO OPERATOR LAB BLOOD ORDERABLES Edited R esult - Final Performing Organization Address [facility]/State/ZIP Co de Phone Number [facility] Department [place] [address] * Lipase (06/15/2022 8:51 PM CDT) [facility] Lipase 27 10 - 99 Units/L [facility] Blood 06/15/2022 8:51 PM CDT 06/15/2022 9:33 PM CDT Marcelina Lo CHIEF AIRLINE RADIO OPERATOR LAB BLOOD ORDERABLES Final Re sult Performing Organization Address [facility] Co de Phone Number [facility] Department [place] [address] * (ABNORMAL) Magnesium (06/15/2022 8:51 PM CDT) [facility] Magnesium 3.2(H) 1.4 - 2.5 mg/dL [facility] Blood 06/15/2022 8:51 PM CDT 06/15/2022 9:34 PM CDT Marcelina Lo CHIEF AIRLINE RADIO OPERATOR LAB BLOOD ORDERABLES Final Re sult Performing Organization Address [facility] de Phone Number [facility] Department [place] [address] * (ABNORMAL) Comprehensive metabolic panel (06/15/2022 8:51 PM CDT) [facility] Sodium 137 135 - 145 mmol/L [facility] Potassium, pl 4.6 3.3 - 4.9 mmol/L [facility] Chloride 101 97 - 110 mmol/L [facility] CO2 26 22 - 32 mmol/L [facility] Anion gap 10 2 - 15 mmol/L [facility] BUN 29(H) 8 - 25 mg/dL [facility] Creatinine 3.93(H) 0.80 - 1.30 mg/dL [facility] Glucose 179 70 - 199 mg/dL [facility] Comment: Interpretive Data Fasting glucose >/= [...] classification and Diagnosis of Diabetes Diabetes Care 2017;40 (Suppl. 1):S11. Current interpretive data was last revised 2017. Calcium 9.5 8.5 - 10.3 mg/dL [facility] Bilirubin, total 0.5 0.1 - 1.2 mg/dL [facility] Protein, pl 6.5 6.5 - 8.5 g/dL [facility] Albumin 3.0(L) 3.5 - 5.0 g/dL [facility] Alk phos 235(H) 40 - 130 Units/L [facility] ALT 36 7 - 55 Units/L [facility] AST 50 10 - 50 Units/L [facility] Blood 06/15/2022 8:51 PM CDT 06/15/2022 9:34 PM CDT us Marcelina Lo CHIEF AIRLINE RADIO OPERATOR LAB BLOOD ORDERABLES Final Re sult [facility] Department [place] [address] * (ABNORMAL) CBC with auto differential (06/15/2022 8:51 PM CDT) Pathologist [facility] WBC 12.7(H) 3.8 - 9.9 K/cumm [facility] Hgb 7.2(L) 13.0 - 17.5 g/dL [facility] Hct 21.9(L) 38.9 - 50.3 % [facility] Plt 204 150 - 400 K/cumm [facility] MPV 10.4 9.1 - 12.3 fL [facility] RBC 2.30(L) 4.30 - 5.80 M/cumm [facility] MCV 95.2 81.3 - 96.4 fL [facility] MCH 31.3 27.1 - 33.3 pg [facility] MCHC 32.9 32.3 - 35.7 g/dL [facility] RDW CV 14.6 11.1 - 14.9 % [facility] RDW SD 47.4 35.7 - 48.1 fL [facility] NRBC abs 0.05(H) 0.00 - 0.01 K/cumm [facility] Blood 06/15/2022 8:51 PM CDT 06/15/2022 9:34 PM CDT us Marcelina Lo CHIEF AIRLINE RADIO OPERATOR LAB BLOOD ORDERABLES Final Re sult [facility] Department [place] [address] * POCT glucose (06/15/2022 8:49 PM CDT) Glucose, POC 183 70 - 199 mg/dL [facility] Blood 06/15/2022 8:49 PM CDT 06/15/2022 8:49 PM CDT us Catherine Adams MD LAB POCT ORDERABLES - DEVIC E Final Result Performing Organization Address City/[facility]/ZIP Co de Phone Number [facility] Department [place] [address] * C. difficile testing Stool (06/15/2022 6:15 PM CDT) C. diff result Negative, free toxin Negative , free toxin [facility] C. diff interp Negative for toxigenic Clostridioides (Clostridium) difficile. Analysis was performed using a glutatmate dehydrogenase antigen detection assay combined with a C. difficile toxin detection assay. [facility] Stool 06/15/2022 6:15 PM CDT 06/15/2022 8:14 PM CDT Narrative [facility] - 06/15/2022 11:02 PM CDT Testing for C. difficile is not recommended within 4 days of a negative result, 10 days of a positive, or 24 hours after laxative administration. If this order is clinically indicated, contact the lab and enter the passcode to complete this order.->[id number] Catherine Adams MD LAB MICROBIOLOGY - GENERAL ORDERABLES Final Result Performing Organization Address City/[facility] Co de Phone Number [facility] [place] [address] * VRE culture, surveillance Stool (06/15/2022 6:14 PM CDT) Report Final Report: Negative [facility] Stool 06/15/2022 6:14 PM CDT 06/15/2022 11:04 PM CDT Narrative [facility] - 06/18/2022 1:29 PM CDT Testing performed by [facility] ([phone]). Catherine Adams MD LAB MICROBIOLOGY - GENERAL ORDERABLES Final Result Performing Organization Address City/[facility] Co de Phone Number [facility] [place] [address] * (ABNORMAL) POCT glucose (06/15/2022 3:21 PM CDT) Glucose, POC 260(H) 70 - 199 mg/dL [facility] Blood 06/15/2022 3:21 PM CDT 06/15/2022 3:21 PM CDT Catherine Adams MD LAB POCT ORDERABLES - DEVIC E Final Result Performing Organization Address City/[facility]/ZIP Co de Phone Number [facility] [place] [address] * (ABNORMAL) Blood gas, arterial (06/15/2022 11:21 AM CDT) pH, Art 7.38 7.35 - 7.45 [facility] PCO2, Arterial 39 35 - 45 mmHg [facility] PO2, Arterial 100 83 - 108 mmHg [facility] HCO3 Art (Calculated) 23 20 - 30 mmol/L [facility] BE, art -2 mmol/L [facility] Comment: Interpretive Data No Reference Range Established Current Interpretive Data was last revised on 2017 O2 Sat Art (Measured) 98(H) 90 - 95 % [facility] Blood 06/15/2022 11:2 1 AM CDT 06/15/2022 11:32 AM CDT us Marcelina Lo CHIEF AIRLINE RADIO OPERATOR LAB BLOOD ORDERABLES Final Re sult Performing Organization Address [facility] Co de Phone Number [facility] Department [place] [address] * (ABNORMAL) POCT glucose (06/15/2022 11:20 AM CDT) [facility] Glucose, POC 332(H) 70 - 199 mg/dL [facility] Glucose comment 1 Glu2: RN/ Notified [facility] Blood 06/15/2022 11:2 0 AM CDT 06/15/2022 11:20 AM CDT Catherine Adams MD LAB POCT ORDERABLES - DEVIC E Final Result Performing Organization Address [facility] Co de Phone Number [facility] Department [place] [address] * Respiratory pathogen panel Nasopharyngeal (06/15/2022 11:05 AM CDT) [facility] Influenza A RNA Not Detected Not Detected [facility] Influenza B RNA Not Detected Not Detected [facility] RSV RNA Not Detected Not Detected [facility] COVID-19 RNA Not Detected Not Detected [facility] Coronavirus 229E RNA Not Detected Not Detected [facility] Coronavirus HKU1 RNA Not Detected Not Detected [facility] Coronavirus NL63 RNA Not Detected Not Detected [facility] Coronavirus OC43 RNA Not Detected Not Detected [facility] Adenovirus DNA Not Detected Not Detected [facility] Metapneumovirus RNA Not Detected Not Detected [facility] Rhinovirus/Enterov irus RNA Not Detected Not Detected [facility] Parainfluenza 1 RNA Not Detected Not Detected [facility] Parainfluenza 2 RNA Not Detected Not Detected [facility] Parainfluenza 3 RNA Not Detected Not Detected [facility] Parainfluenza 4 RNA Not Detected Not Detected [facility] B. pertussis DNA Not Detected Not Detected [facility] B. parapertussis DNA Not Detected Not Detected [facility] C. pneumoniae DNA Not Detected Not Detected [facility] M. pneumoniae DNA Not Detected Not Detected [facility] Nasopharyngeal 06/15/2022 11 :05 AM CDT 06/15/2022 11:19 AM CDT Narrative [facility] - 06/15/2022 1:02 PM CDT Is the Patient experiencing symptoms consistent with COVID?->Unknown Reason for testing?->Symptomatic Surveillance testing for transplant patient?->No ??Interpretive Data The [employer] FilmArray Respiratory Panel (RP2.1) assay is a multiplexed real-time PCR based nucleic acid test capable of simultaneous qualitative detection and identification of multiple respiratory viral and bacterial nucleic acids, including SARS Coronavirus 2 (the causative agent of COVID-19). The following bacteria, viruses and virus subtypes can be identified using the FilmArray RP2.1 assay: Bordetella pertussis, Bordetella parapertussis, Chlamydia pneumoniae, Mycoplasma pneumoniae, Adenovirus, SARS Coronavirus 2, seasonal coronaviruses (Coronavirus HKU1, Coronavirus NL63, Coronavirus 229E, and Coronavirus OC43), Influenza A, Influenza A subtype H1, Influenza A subtype H3, Influenza A subtype 2009 H1, Influenza B, Metapneumovirus, Parainfluenza 1, Parainfluenza 2, Parainfluenza 3, Parainfluenza 4, RSV, Rhinovirus/Enterovirus. Due to the genetic similarity between human Rhinovirus and Enterovirus, the FilmArray RP2.1 assay cannot reliably differentiate them. Coronavirus OC43 may cross-react with some isolates of Coronavirus HKU1. ??A dual positive result may be due to cross-reactivity or may indicate a co-infection. The detection and identification of specific viral and bacterial nucleic acids from individuals exhibiting signs and symptoms of a respiratory infection aids in the diagnosis of respiratory infection if used in conjunction with other clinical and epidemiological information. ??The results of this test should not be used as the sole basis for diagnosis, treatment, or other management decisions. ??Negative results in the setting of a respiratory illness may be due to infection with pathogens that are not detected by this test. ??Positive results do not rule out infection/co-infection with other organisms. ??The agent(s) detected by the FilmArray RP2.1 may not be the definite cause of disease. ??Additional testing (lab, imaging, etc.) may be necessary when evaluating a patient with possible respiratory tract infection. The FilmArray RP2.1 assay has FDA clearance for testing of CHIEF AIRLINE RADIO OPERATOR swabs. ??The performance of additional specimen types has been assessed by the performing laboratory. ??The performance characteristics of this assay have been determined by [facility] Molecular Infectious Disease Laboratory. Current interpretive data was last revised on 22. us Catherine Adams MD LAB MICROBIOLOGY - GENERAL ORDERABLES Final Result [facility] Department [place] [address] * US Vein Duplex Lower Extremity Bilateral Complete (06/15/2022 11:00 AM CDT) Anatomical Region Laterality Modality Vascular Bilateral Ultrasound 06/15/2022 10:2 9 AM CDT Narrative 06/15/2022 12:34 PM CDT [employer] [facility] [employer] [facility] - Department of Vascular Surgery, Vascular Laboratory [address] [place] [address] Lower Extremity Venous Ultrasound Report Patient Name: ADELIA GARVIN C : 1970 (51y 9m) Study Date: 06/15/2022 10:29:44 AM Gender: M Tech: Location: [id number] Ref.Provider: CATHERINE ADAMS Quality: Adequate Order Provider: CATHERINE ADAMS Procedures: Vascular Report: Venous Duplex imaging was performed bilaterally in the lower extremities. The common femoral, femoral, popliteal, posterior tibial, peroneal veins were evaluated for patency, spontaneity and phasicity with Doppler, compression and augmentation maneuvers. Great saphenous vein proximal at the junction was evaluated with compression maneuvers. Indications: Localized edema. Findings: Performing Senior Art Director: Faye Zheng RVT, RDMS. Bilateral: Venous Doppler [...] performed. Electronically Signed By: Jase Mendez MD [facility] 2022-06-15 12:34:44 CDT CC: CC: Procedure Note Jase Mendez MD - 06/15/2022 [facility] - Department of Vascular Surgery,Vascular Laboratory [address] [place] [address] Lower Extremity Venous Ultrasound Report Patient Name: ADELIA GARVIN CPatient ID: [id number] : 1970 (51y 9m)Study Date: 06/15/2022 10:29:44 AM Gender: MAccession #: [id number] Tech: CDLocation: [id number] Ref.Provider: CATHERINE ADAMSQuality: Adequate Order Provider: CATHERINE ADAMSAccount #: [id number] Procedures: Vascular Report: Venous Duplex imaging was performed bilaterally in the lower extremities.The common femoral, femoral, popliteal, posterior tibial, peroneal veins wereevaluated for patency, spontaneity and phasicity with Doppler, compression and augmentationmaneuvers. Great saphenous vein proximal at the junction was evaluated with compressionmaneuvers. Indications: Localized edema. Findings: Performing Senior Art Director: Faye Zheng, FILI, NAN. Bilateral: Venous Doppler signals in the bilateral [...] performed. Electronically Signed By: Jase Mendez MD [facility] 2022-06-15 12:34:44 CDT CC: CC: Catherine Adams MD IMG US PROCEDURES Final Res ult * (ABNORMAL) POCT glucose (06/15/2022 8:21 AM CDT) [facility] Signature Glucose, POC 260(H) 70 - 199 mg/dL [facility] Blood 06/15/2022 8:21 AM CDT 06/15/2022 8:21 AM CDT Catherine Adams MD LAB POCT ORDERABLES - DEVIC E Final Result [facility] Department [place] [address] * Oxyhemoglobin, central venous (06/15/2022 8:11 AM CDT) Pathologist [facility] Oxyhemoglobin, CV 66.6 % [facility] Comment: Interpretive Data No reference range established. Current interpretive data was last revised 2019. Blood 06/15/2022 8:11 AM CDT 06/15/2022 8:25 AM CDT Catherine Adams MD LAB BLOOD ORDERABLES Final Result Performing Organization Address [facility] Co de Phone Number [facility] [place] [address] * (ABNORMAL) aPTT (06/15/2022 8:11 AM CDT) [facility] aPTT 60(H) 27 - 37 sec [facility] Comment: Interpretive Data Therapeutic heparin range: 60.0 - 94.0 seconds. Based on correlation with therapeutic heparin activity range of 0.3-0.7 Units/mL. Current interpretive data was last revised on 2020. Blood 06/15/2022 8:11 AM CDT 06/15/2022 8:50 AM CDT Narrative [facility] - 06/15/2022 9:28 AM CDT Draw STAT PTT 6 hrs after initiation of heparin infusion, draw STAT PTT 6 hours after each dose/rate change, and every 6 hours until 2 consecutive PTTs are within therapeutic range. Once two consecutive PTT's are therapeutic (60-94.9 seconds), then draw PTT every AM until heparin is discontinued. Catherine Adams MD LAB BLOOD ORDERABLES Final Result Performing Organization Address [facility] Co de Phone Number [facility] [place] [address] * (ABNORMAL) eGFR (06/15/2022 8:06 AM CDT) [facility] eGFR 27(L) 90 - 130 mL/min/1. 73 m2 [facility] Comment: Interpretive Data Reference Interval [...] interpretive data was last reviewed 2021. Blood 06/15/2022 8:06 AM CDT 06/15/2022 8:50 AM CDT us Marcelina Lo NP LAB BLOOD ORDERABLES Final Re sult [facility] [place] [address] * (ABNORMAL) Differential, auto (06/15/2022 8:06 AM CDT) Neutrophil abs 9.0(H) 1.7 - 6.5 K/cumm [facility] Imm gran abs 1.0(H) 0.0 - 0.1 K/cumm [facility] Lymphocyte abs 1.6 0.8 - 3.3 K/cumm [facility] Monocyte abs 1.5(H) 0.2 - 0.8 K/cumm [facility] Eosinophil abs 0.2 0.0 - 0.5 K/cumm [facility] Basophil abs 0.1 0.0 - 0.1 K/cumm [facility] Neutrophil pct 67.6 % [facility] Comment: Interpretive Data Percent cell count reference ranges are not reported, since discordance with absolute values may lead to misinterpretation of CBC data. Current Interpretive Data was last revised on 2017. Imm gran pct 7.4 % [facility] Comment: Interpretive Data Percent cell count reference ranges are not reported, since discordance with absolute values may lead to misinterpretation of CBC data. Current Interpretive Data was last revised on 2017. Lymphocyte pct 11.8 % [facility] Comment: Interpretive Data Percent cell count reference ranges are not reported, since discordance with absolute values may lead to misinterpretation of CBC data. Current Interpretive Data was last revised on 2017. Monocyte pct 11.2 % [facility] Comment: Interpretive Data Percent cell count reference ranges are not reported, since discordance with absolute values may lead to misinterpretation of CBC data. Current Interpretive Data was last revised on 2017. Eosinophil pct 1.5 % [facility] Comment: Interpretive Data Percent cell count reference ranges are not reported, since discordance with absolute values may lead to misinterpretation of CBC data. Current Interpretive Data was last revised on 2017. Basophil pct 0.5 % [facility] Comment: Interpretive Data Percent cell count reference ranges are not reported, since discordance with absolute values may lead to misinterpretation of CBC data. Current Interpretive Data was last revised on 2017. Blood 06/15/2022 8:06 AM CDT 06/15/2022 8:50 AM CDT us Marcelina Lo NP LAB BLOOD ORDERABLES Final Re sult [facility] Department [place] [address] * Blood culture Blood Arm, right (06/15/2022 8:06 AM CDT) Report Final Report: No growth ALESSANDRA AVILA Blood (Arm, right) 06/15/2022 8:06 AM CDT 06/15/2022 9:38 AM CDT Luis AVILA - 06/19/2022 12:00 PM CDT From a different site than #1. 1. ?Blood cultures are incubated for 4 days on a continuously monitored blood culture system. The first report of a negative culture is issued within 24 hours of receipt of the specimen in the laboratory. 2. ?Positive culture results are reported as soon as they are detected. 3. ?The most important factor for detection of microbes in the setting of bloodstream infection is the volume of blood submitted for culture. Failure to collect an optimal blood volume can result in false negative blood cultures. For pediatric patients, the recommended blood volume to collect is 1 mL of blood per year of patient age (up to 20 mL) per blood culture set. For adult patients, 20 mL of blood, divided equally between aerobic and anaerobic blood culture bottles, is recommended for each blood culture set. 4. ?For blood cultures with Gram-positive cocci, a rapid molecular test for organism identification may be performed using the [employer] Gram-Positive Blood Culture Assay. This assay detects microbial DNA in positive blood culture broth via hybridization of target DNA to capture oligonucleotides on a microarray. This assay has been cleared by the [place] Food and Drug Administration and its performance characteristics have been verified by the [facility]. 5. ?For questions about this culture, contact the Microbiology Laboratory at [phone]. Interpretive data was last revised on 2020. us Catherine Adams MD LAB MICROBIOLOGY - GENERAL ORDERABLES Final Result ALESSANDRA AVILA [facility] Department [place] [address] * Blood culture Blood Antecubital, right (06/15/2022 8:06 AM CDT) Report Final Report: No growth ALESSANDRA CARRION Blood (Antecubital, right) 06/15/2022 8:06 AM CDT 06/15/2022 9:37 AM CDT Narrative [facility] - 06/19/2022 12:00 PM CDT 1. ?Blood cultures are incubated for 4 days on a continuously monitored blood culture system. The first report of a negative culture is issued within 24 hours of receipt of the specimen in the laboratory. 2. ?Positive culture results are reported as soon as they are detected. 3. ?The most important factor for detection of microbes in the setting of bloodstream infection is the volume of blood submitted for culture. Failure to collect an optimal blood volume can result in false negative blood cultures. For pediatric patients, the recommended blood volume to collect is 1 mL of blood per year of patient age (up to 20 mL) per blood culture set. For adult patients, 20 mL of blood, divided equally between aerobic and anaerobic blood culture bottles, is recommended for each blood culture set. 4. ?For blood cultures with Gram-positive cocci, a rapid molecular test for organism identification may be performed using the [employer] Gram-Positive Blood Culture Assay. This assay detects microbial DNA in positive blood culture broth via hybridization of target DNA to capture oligonucleotides on a microarray. This assay has been cleared by the [place] Food and Drug Administration and its performance characteristics have been verified by the [facility]. 5. ?For questions about this culture, contact the Microbiology Laboratory at [phone]. Interpretive data was last revised on 2020. Catherine Adams MD LAB MICROBIOLOGY - GENERAL ORDERABLES Final Result [facility] Department [place] [address] * (ABNORMAL) Magnesium (06/15/2022 8:06 AM CDT) Magnesium 2.8(H) 1.4 - 2.5 mg/dL [facility] Blood 06/15/2022 8:06 AM CDT 06/15/2022 8:50 AM CDT us Marcelina Lo CHIEF [employer] RADIO OPERATOR LAB BLOOD ORDERABLES Final Re sult [facility] Department [place] [address] * (ABNORMAL) Comprehensive metabolic panel (06/15/2022 8:06 AM CDT) Sodium 134(L) 135 - 145 mmol/L [facility] Potassium, pl 5.0(H) 3.3 - 4.9 mmol/L [facility] Chloride 99 97 - 110 mmol/L [facility] CO2 26 22 - 32 mmol/L [facility] Anion gap 9 2 - 15 mmol/L [facility] BUN 21 8 - 25 mg/dL [facility] Creatinine 2.73(H) 0.80 - 1.30 mg/dL [facility] Glucose 273(H) 70 - 199 mg/dL [facility] Comment: Interpretive Data Fasting glucose >/= [...] classification and Diagnosis of Diabetes Diabetes Care 2017;40 (Suppl. 1):S11. Current interpretive data was last revised 2017. Calcium 8.8 8.5 - 10.3 mg/dL [facility] Bilirubin, total 0.5 0.1 - 1.2 mg/dL [facility] Protein, pl 6.2(L) 6.5 - 8.5 g/dL [facility] Albumin 2.7(L) 3.5 - 5.0 g/dL [facility] Alk phos 256(H) 40 - 130 Units/L [facility] ALT 44 7 - 55 Units/L [facility] AST 61(H) 10 - 50 Units/L [facility] Blood 06/15/2022 8:06 AM CDT 06/15/2022 8:50 AM CDT us Marcelina Lo CHIEF [employer]LINE RADIO OPERATOR LAB BLOOD ORDERABLES Final Re sult [facility] Department [place] [address] * (ABNORMAL) CBC with auto differential (06/15/2022 8:06 AM CDT) WBC 13.2(H) 3.8 - 9.9 K/cumm [facility] Hgb 7.7(L) 13.0 - 17.5 g/dL [facility] Hct 24.1(L) 38.9 - 50.3 % [facility] Plt 228 150 - 400 K/cumm [facility] MPV 10.6 9.1 - 12.3 fL [facility] RBC 2.45(L) 4.30 - 5.80 M/cumm [facility] MCV 98.4(H) 81.3 - 96.4 fL [facility] MCH 31.4 27.1 - 33.3 pg [facility] MCHC 32.0(L) 32.3 - 35.7 g/dL [facility] RDW CV 14.5 11.1 - 14.9 % [facility] RDW SD 49.6(H) 35.7 - 48.1 fL [facility] NRBC abs 0.11(H) 0.00 - 0.01 K/cumm [facility] Blood 06/15/2022 8:06 AM CDT 06/15/2022 8:50 AM CDT us Marcelina Lo CHIEF [employer] RADIO OPERATOR LAB BLOOD ORDERABLES Final Re sult [facility] Department [place] [address] * XR Chest 1 View (06/15/2022 5:21 AM CDT) Anatomical Region Laterality Modality Body, Chest N/A Computed Radiogr aphy 06/15/2022 8:52 AM CDT Impressions 06/15/2022 9:21 AM CDT Comparison is made to 06/14/2022. Endotracheal tube terminates near the thoracic inlet, approximately 7 cm above the boni. Recommend advancement. Gastric tube terminates below left hemidiaphragm out of the [id number]. A left internal jugular central venous catheter terminates in the superior vena cava. There are small lung volumes with similar-appearing moderate bibasilar atelectasis. No pleural effusion. No pneumothorax. No new consolidation. The heart and mediastinal contours are unchanged. Dictated by: Mehdi Martines MD The radiology attending physician has personally reviewed this study, and had reviewed and/or edited this written report and agrees with it. Electronically signed by: Pete Wilkins M.D. Narrative 06/15/2022 9:21 AM CDT EXAMINATION: 1 view chest radiograph Procedure Note Pete Wilkins MD - 06/15/2022 EXAMINATION: 1 view chest radiograph IMPRESSION: Comparison is made to 06/14/2022. Endotracheal tube terminates near the thoracic inlet, approximately 7 cm above the boni. Recommend advancement. Gastric tube terminates below left hemidiaphragm out of the [id number]. A left internal jugular central venous catheter terminates in the superior vena cava. There are small lung volumes with similar-appearing moderate bibasilar atelectasis. No pleural effusion. No pneumothorax. No new consolidation. The heart and mediastinal contours are unchanged. Dictated by: Mehdi Martines MD The radiology attending physician has personally reviewed this study, and had reviewed and/or edited this written report and agrees with it. Electronically signed by: Pete Wilkins M.D. Catherine Adams MD IMG XR PROCEDURES Final Res ult * (ABNORMAL) POCT glucose (06/15/2022 3:37 AM CDT) [facility] Glucose, POC 264(H) 70 - 199 mg/dL [facility] Blood 06/15/2022 3:37 AM CDT 06/15/2022 3:37 AM CDT Catherine Adams MD LAB POCT ORDERABLES - DEVIC E Final Result Performing Organization Address [facility] Co de Phone Number [facility] [place] [address] * Lactate, whole blood (06/15/2022 3:37 AM CDT) Lactate, bld 0.8 0.7 - 2.0 mmol/L [facility] Blood 06/15/2022 3:37 AM CDT 06/15/2022 3:46 AM CDT Marcelina Lo CHIEF AIRLINE RADIO OPERATOR LAB BLOOD ORDERABLES Final Re sult Performing Organization Address [facility] de Phone Number [facility] [place] [address] * (ABNORMAL) Blood gas, arterial (06/15/2022 3:37 AM CDT) pH, Art 7.36 7.35 - 7.45 [facility] PCO2, Arterial 41 35 - 45 mmHg [facility] PO2, Arterial 64(L) 83 - 108 mmHg [facility] HCO3 Art (Calculated) 24 20 - 30 mmol/L [facility] BE, art -2 mmol/L [facility] Comment: Interpretive Data No Reference Range Established Current Interpretive Data was last revised on 2017 O2 Sat Art (Measured) 92 90 - 95 % [facility] Blood 06/15/2022 3:37 AM CDT 06/15/2022 3:46 AM CDT Marcelina Lo CHIEF AIRLINE RADIO OPERATOR LAB BLOOD ORDERABLES Final Re sult Performing Organization Address [facility] Co de Phone Number [facility] [place] [address] * Pneumonia PCR Tracheal aspirate (06/15/2022 1:53 AM CDT) C. pneumoniae DNA Not Detected Not Detected [facility] Legionella pneumophila DNA Not Detected Not Detected [facility] M. pneumoniae DNA Not Detected Not Detected [facility] Adenovirus DNA Not Detected Not Detected [facility] Coronavirus (229E, OC43, HKU1, NL63) RNA Not Detected Not Detected [facility] Metapneumovirus RNA Not Detected Not Detected [facility] Rhinovirus/Enterov irus RNA Not Detected Not Detected [facility] Influenza A RNA Not Detected Not Detected [facility] Influenza B RNA Not Detected Not Detected [facility] Parainfluenza virus (1-4) RNA Not Detected Not Detected [facility] RSV RNA Not Detected Not Detected [facility] Tracheal aspirate 06/15/2022 1:53 AM CDT 06/15/2022 4:22 AM CDT Narrative [facility] - 06/15/2022 5:52 AM CDT The [employer] Pneumonia Panel is a multiplexed nucleic acid test capable of simultaneous detection and identification of multiple respiratory viruses and bacteria. ??This panel detects Adenovirus, coronaviruses (Coronavirus HKU1, Coronavirus NL63, Coronavirus 229E, and Coronavirus OC43), Influenza A, Influenza B, Human metapneumovirus, Parainfluenza (1-4), RSV, Rhinovirus/Enterovirus, Chlamydia pneumoniae, Mycoplasma pneumoniae, and Legionella pneumophila. Additional aerobic bacterial targets are reported with the accompanying culture results with the same accession number. Rhinovirus and Enterovirus are genetically similar and cannot be reliably differentiated with this method. Negative adenovirus results should be confirmed by an alternative methodology (i.e. standalone PCR) if the suspicion for adenovirus infection is high. ??The results of this test must be considered in the clinical context of the patient and should not be used as the sole basis for diagnosis, treatment, or other management decisions. ??Negative results in the setting of a respiratory illness may be due to infection with pathogens that are not detected by this test. ??Positive results do not rule out infection/co-infection with other organisms. The [employer] Pneumonia Panel is FDA cleared for lower respiratory tract specimens. The performance characteristics of this assay have been determined by [facility]. Current interpretive data was last revised on 2021. us Catherine Adams MD LAB MICROBIOLOGY - GENERAL ORDERABLES Final Result [facility] Department [place] [address] * Pneumonia PCR with aerobic culture and Gram stain Tracheal aspirate (06/15/2022 1:53 AM CDT) Direct Specimen Exam Molecular Analysis: Rapid molecular analysis has NOT detected bacterial targets (for a list of targets evaluated, refer to the interpretive data for this specimen). Correlation of molecular analysis with culture results is recommended. [facility] Direct Specimen Exam Stain: Few polymorphonuclear leukocytes seen. Few squamous epithelial cells seen. Few mixed bacterial stone seen on Gram stain. [facility] Report Final Report: Insignificant growth based on current clinical standards. [facility] Tracheal aspirate 06/15/2022 1:53 AM CDT 06/15/2022 3:09 AM CDT Narrative [facility] - 06/17/2022 10:03 AM CDT When rapid molecular testing results are reported, testing completed using the [employer] Pneumonia Panel. ??This molecular assay detects: Acinetobacter calcoaceticus-baumannii complex, Enterobacter cloacae complex, Escherichia coli, Haemophilus influenzae, Enterobacter (Klebsiella) aerogenes, ??Klebsiella oxytoca, Klebsiella pneumoniae group, Moraxella catarrhalis, Proteus spp., Pseudomonas aeruginosa, Serratia marcescens, Staphylococcus aureus, Streptococcus agalactiae, Streptococcus pneumoniae, and Streptococcus pyogenes. ?? These bacteria are detected and reported semi-quantitatively with bins representing approximately 10^4, 10^5, 10^6, or greater than or equal to 10^7 genomic copies of bacterial nucleic acid per mL (copies/mL) of specimen. ??These quantities are reported to aid in estimating the relative abundance of organism(s) detected within the specimen and to correlate these results with culture results. ?? For Staphylococcus aureus, mecA/C and MREJ genes are evaluated to predict methicillin resistance or susceptibility. ??For Gram-negative bacteria, the beta-lactamases CTX-M, IMP, KPC, NDM, VIM and OXA-48-like are evaluated and reported if detected. ??For Gram-negative organisms, the absence of detection of resistance markers does not exclude resistance. ?? Correlation with final culture results and susceptibility testing is recommended. The [employer] Pneumonia Panel is cleared by the [place] Food and Drug Administration and its performance characteristics have been confirmed by the [facility]. ??The performance of the [employer] Pneumonia Panel has not been established for monitoring treatment of infection and bacterial nucleic acids may persist independent of organism viability. Catherine Adams MD LAB MICROBIOLOGY - GENERAL ORDERABLES Final Result Performing Organization Address [facility] de Phone Number [facility] Department [place] [address] * (ABNORMAL) Blood gas, arterial (06/14/2022 11:53 PM CDT) pH, Art 7.36 7.35 - 7.45 [facility] PCO2, Arterial 43 35 - 45 mmHg [facility] PO2, Arterial 77(L) 83 - 108 mmHg [facility] HCO3 Art (Calculated) 25 20 - 30 mmol/L [facility] BE, art -1 mmol/L [facility] Comment: Interpretive Data No Reference Range Established Current Interpretive Data was last revised on 2017 O2 Sat Art (Measured) 94 90 - 95 % [facility] Blood 06/14/2022 11:5 3 PM CDT 06/14/2022 11:59 PM CDT Marcelina Lo CHIEF AIRLINE RADIO OPERATOR LAB BLOOD ORDERABLES Final Re sult Performing Organization Address [facility] Co de Phone Number [facility] Department [place] [address] * POCT glucose (06/14/2022 11:52 PM CDT) Glucose, POC 176 70 - 199 mg/dL [facility] Blood 06/14/2022 11:5 2 PM CDT 06/14/2022 11:52 PM CDT Catherine Adams MD LAB POCT ORDERABLES - DEVIC E Final Result Performing Organization Address [facility] Co de Phone Number [facility] [place] [address] * (ABNORMAL) eGFR (06/14/2022 7:41 PM CDT) eGFR 35(L) 90 - 130 mL/min/1. 73 m2 [facility] Comment: Interpretive Data Reference Interval Normal [...] interpretive data was last reviewed 2021. Blood 06/14/2022 7:41 PM CDT 06/14/2022 8:02 PM CDT Catherine Adams MD LAB BLOOD ORDERABLES Final Result Performing Organization Address [facility] Co de Phone Number ALESSANDRA CARRION [facility]ie [facility] Department [place] [address] * (ABNORMAL) Differential, auto (06/14/2022 7:41 PM CDT) Neutrophil abs 9.9(H) 1.7 - 6.5 K/cumm [facility] Imm gran abs 1.5(H) 0.0 - 0.1 K/cumm [facility] Lymphocyte abs 1.7 0.8 - 3.3 K/cumm [facility] Monocyte abs 1.6(H) 0.2 - 0.8 K/cumm [facility] Eosinophil abs 0.3 0.0 - 0.5 K/cumm [facility] Basophil abs 0.0 0.0 - 0.1 K/cumm [facility] Neutrophil pct 66.0 % [facility] Comment: Interpretive Data Percent cell count reference ranges are not reported, since discordance with absolute values may lead to misinterpretation of CBC data. Current Interpretive Data was last revised on 2017. Imm gran pct 9.6 % [facility] Comment: Interpretive Data Percent cell count reference ranges are not reported, since discordance with absolute values may lead to misinterpretation of CBC data. Current Interpretive Data was last revised on 2017. Lymphocyte pct 11.2 % [facility] Comment: Interpretive Data Percent cell count reference ranges are not reported, since discordance with absolute values may lead to misinterpretation of CBC data. Current Interpretive Data was last revised on 2017. Monocyte pct 10.8 % [facility] Comment: Interpretive Data Percent cell count reference ranges are not reported, since discordance with absolute values may lead to misinterpretation of CBC data. Current Interpretive Data was last revised on 2017. Eosinophil pct 2.1 % [facility] Comment: Interpretive Data Percent cell count reference ranges are not reported, since discordance with absolute values may lead to misinterpretation of CBC data. Current Interpretive Data was last revised on 2017. Basophil pct 0.3 % [facility] Comment: Interpretive Data Percent cell count reference ranges are not reported, since discordance with absolute values may lead to misinterpretation of CBC data. Current Interpretive Data was last revised on 2017. Blood 06/14/2022 7:41 PM CDT 06/14/2022 8:01 PM CDT Catherine Adams MD LAB BLOOD ORDERABLES Final Result Performing Organization Address [facility] Co de Phone Number [facility] Department [place] [address] * (ABNORMAL) Magnesium (06/14/2022 7:41 PM CDT) Pathologist [facility] Magnesium 3.0(H) 1.4 - 2.5 mg/dL [facility] Blood 06/14/2022 7:41 PM CDT 06/14/2022 7:49 PM CDT Catherine Adams MD LAB BLOOD ORDERABLES Final Result Performing Organization Address [facility] de Phone Number [facility] Department [place] [address] * (ABNORMAL) Comprehensive metabolic panel (06/14/2022 7:41 PM CDT) Pathologist [facility] Sodium 138 135 - 145 mmol/L [facility] Potassium, pl 4.7 3.3 - 4.9 mmol/L [facility] Chloride 102 97 - 110 mmol/L [facility] CO2 27 22 - 32 mmol/L [facility] Anion gap 9 2 - 15 mmol/L [facility] BUN 17 8 - 25 mg/dL [facility] Creatinine 2.22(H) 0.80 - 1.30 mg/dL [facility] Glucose 182 70 - 199 mg/dL [facility] Comment: Interpretive Data Fasting glucose >/= [...] classification and Diagnosis of Diabetes Diabetes Care 2017;40 (Suppl. 1):S11. Current interpretive data was last revised 2017. Calcium 9.1 8.5 - 10.3 mg/dL [facility] Bilirubin, total 0.6 0.1 - 1.2 mg/dL [facility] Protein, pl 6.5 6.5 - 8.5 g/dL [facility] Albumin 3.1(L) 3.5 - 5.0 g/dL [facility] Alk phos 264(H) 40 - 130 Units/L [facility] ALT 45 7 - 55 Units/L [facility] AST 73(H) 10 - 50 Units/L [facility] Blood 06/14/2022 7:41 PM CDT 06/14/2022 7:49 PM CDT Catherine Adams MD LAB BLOOD ORDERABLES Final Result [facility] Department [place] [address] * (ABNORMAL) Triglycerides (06/14/2022 7:41 PM CDT) Triglycerides 482(H) <=149 mg/dL [facility] Comment: Interpretive Data Ages < or [...] Interpretive Data was last revised on 2018. Blood 06/14/2022 7:41 PM CDT 06/14/2022 7:49 PM CDT Narrative [facility] - 06/14/2022 8:29 PM CDT While on propofol infusion. Catherine Adams MD LAB BLOOD ORDERABLES Final Result Performing Organization Address [facility] Co de Phone Number [facility] [place] [address] * Phosphorus (06/14/2022 7:41 PM CDT) Pathologist [facility] Phosphorus, pl 3.1 2.3 - 4.5 mg/dL [facility] Blood 06/14/2022 7:41 PM CDT 06/14/2022 7:49 PM CDT Marcelina Lo CHIEF AIRLINE RADIO OPERATOR LAB BLOOD ORDERABLES Final Re sult Performing Organization Address [facility] Co de Phone Number [facility] Department [place] [address] * (ABNORMAL) Beta-hydroxybutyrate (06/14/2022 7:41 PM CDT) Beta-Hydroxybut yrate 0.7(H) 0.0 - 0.5 mmol/L [facility] Blood 06/14/2022 7:41 PM CDT 06/14/2022 7:47 PM CDT Marcelina Lo CHIEF AIRLINE RADIO OPERATOR LAB BLOOD ORDERABLES Edited R esult - Final Performing Organization Address [facility] Co de Phone Number [facility] Department [place] [address] * Lipase (06/14/2022 7:41 PM CDT) [facility] Lipase 25 10 - 99 Units/L [facility] Blood 06/14/2022 7:41 PM CDT 06/14/2022 7:49 PM CDT Marcelina Lo CHIEF AIRLINE RADIO OPERATOR LAB BLOOD ORDERABLES Final Re sult Performing Organization Address City/[facility]/ZIP Co de Phone Number [facility] Department [place] [address] * (ABNORMAL) CBC with auto differential (06/14/2022 7:41 PM CDT) [facility] WBC 15.0(H) 3.8 - 9.9 K/cumm [facility] Hgb 8.3(L) 13.0 - 17.5 g/dL [facility] Hct 24.9(L) 38.9 - 50.3 % [facility] Plt 218 150 - 400 K/cumm [facility] MPV 10.4 9.1 - 12.3 fL [facility] RBC 2.62(L) 4.30 - 5.80 M/cumm [facility] MCV 95.0 81.3 - 96.4 fL [facility] MCH 31.7 27.1 - 33.3 pg [facility] MCHC 33.3 32.3 - 35.7 g/dL [facility] RDW CV 14.1 11.1 - 14.9 % [facility] RDW SD 47.3 35.7 - 48.1 fL [facility] NRBC abs 0.08(H) 0.00 - 0.01 K/cumm [facility] Blood 06/14/2022 7:41 PM CDT 06/14/2022 8:01 PM CDT Marcelina Lo CHIEF AIRLINE RADIO OPERATOR LAB BLOOD ORDERABLES Final Re sult [facility] Department [place] [address] * POCT glucose (06/14/2022 7:40 PM CDT) Glucose, POC 190 70 - 199 mg/dL [facility] Blood 06/14/2022 7:40 PM CDT 06/14/2022 7:40 PM CDT Catherine Adams MD LAB POCT ORDERABLES - DEVIC E Final Result Performing Organization Address [facility] [place] [address] * (ABNORMAL) Blood gas, arterial (06/14/2022 4:19 PM CDT) pH, Art 7.38 7.35 - 7.45 [facility] PCO2, Arterial 41 35 - 45 mmHg [facility] PO2, Arterial 76(L) 83 - 108 mmHg [facility] HCO3 Art (Calculated) 25 20 - 30 mmol/L [facility] BE, art -1 mmol/L [facility] Comment: Interpretive Data No Reference Range Established Current Interpretive Data was last revised on 2017 O2 Sat Art (Measured) 94 90 - 95 % [facility] Blood 06/14/2022 4:19 PM CDT 06/14/2022 4:38 PM CDT Marcelina Lo NP LAB BLOOD ORDERABLES Final Re sult Performing Organization Address [facility]/[place] [address] * (ABNORMAL) POCT glucose (06/14/2022 4:16 PM CDT) Glucose, POC 229(H) 70 - 199 mg/dL [facility] Glucose comment 1 Glu2: RN/ Notified [facility] Blood 06/14/2022 4:16 PM CDT 06/14/2022 4:16 PM CDT Catherine Adams MD LAB POCT ORDERABLES - DEVIC E Final Result Performing Organization Address City/State/[facility] Co de Phone Number [facility] [place] [address] * (ABNORMAL) POCT glucose (06/14/2022 11:21 AM CDT) [facility] Signature Glucose, POC 202(H) 70 - 199 mg/dL [facility] Blood 06/14/2022 11:2 1 AM CDT 06/14/2022 11:21 AM CDT Catherine Adams MD LAB POCT ORDERABLES - DEVIC E Final Result Performing Organization Address [facility] de Phone Number [facility] [place] [address] * XR Chest 1 View (06/14/2022 10:56 AM CDT) Anatomical Region Laterality Modality Body, Chest N/A Computed Radiogr aphy 06/14/2022 11:0 4 AM CDT Impressions 06/14/2022 11:04 AM CDT Comparison is made to prior study of 06/14/2022 at 3:59 AM. In the interval, no change in an endotracheal tube about 4 cm above the boni. Gastric tube is seen with the tip heading inferior to the lower border of the image but at least within the stomach. Esophageal temperature probe ends in the distal esophagus. Left internal jugular catheter overlies the superior vena cava. Mild basilar atelectasis noted but there is no pulmonary edema or pneumonia. No definite pleural effusion. The heart size and mediastinal contour are unchanged. Electronically signed by: Saurav Emerson M.D. Narrative 06/14/2022 11:04 AM CDT EXAMINATION: SINGLE VIEW ANTEROPOSTERIOR CHEST Procedure Note Saurav Emerson MD - 06/14/2022 EXAMINATION: SINGLE VIEW ANTEROPOSTERIOR CHEST IMPRESSION: Comparison is made to prior study of 06/14/2022 at 3:59 AM. In the interval, no change in an endotracheal tube about 4 cm above the boni. Gastric tube is seen with the tip heading inferior to the lower border of the image but at least within the stomach. Esophageal temperature probe ends in the distal esophagus. Left internal jugular catheter overlies the superior vena cava. Mild basilar atelectasis noted but there is no pulmonary edema or pneumonia. No definite pleural effusion. The heart size and mediastinal contour are unchanged. Electronically signed by: Saurav Emerson M.D. Catherine Adams MD IMG XR PROCEDURES Final Res ult * POCT glucose (06/14/2022 8:18 AM CDT) Pathologist [facility] Glucose, POC 172 70 - 199 mg/dL [facility] Blood 06/14/2022 8:18 AM CDT 06/14/2022 8:18 AM CDT Catherine Adams MD LAB POCT ORDERABLES - DEVIC E Final Result [facility] Department [place] [address] * (ABNORMAL) eGFR (06/14/2022 8:16 AM CDT) Pathologist [facility] eGFR 35(L) 90 - 130 mL/min/1. 73 m2 [facility] Comment: Interpretive Data Reference Interval [...] interpretive data was last reviewed 2021. Blood 06/14/2022 8:16 AM CDT 06/14/2022 8:29 AM CDT us Catherine Adams MD LAB BLOOD ORDERABLES Final Result [facility] Department [place] [address] * (ABNORMAL) Differential, auto (06/14/2022 8:16 AM CDT) Neutrophil abs 10.1(H) 1.7 - 6.5 K/cumm [facility] Imm gran abs 1.8(H) 0.0 - 0.1 K/cumm [facility] Lymphocyte abs 2.0 0.8 - 3.3 K/cumm [facility] Monocyte abs 1.5(H) 0.2 - 0.8 K/cumm [facility] Eosinophil abs 0.3 0.0 - 0.5 K/cumm [facility] Basophil abs 0.1 0.0 - 0.1 K/cumm [facility] Neutrophil pct 64.1 % [facility] Comment: Interpretive Data Percent cell count reference ranges are not reported, since discordance with absolute values may lead to misinterpretation of CBC data. Current Interpretive Data was last revised on 2017. Imm gran pct 11.4 % [facility] Comment: Interpretive Data Percent cell count reference ranges are not reported, since discordance with absolute values may lead to misinterpretation of CBC data. Current Interpretive Data was last revised on 2017. Lymphocyte pct 12.7 % [facility] Comment: Interpretive Data Percent cell count reference ranges are not reported, since discordance with absolute values may lead to misinterpretation of CBC data. Current Interpretive Data was last revised on 2017. Monocyte pct 9.5 % [facility] Comment: Interpretive Data Percent cell count reference ranges are not reported, since discordance with absolute values may lead to misinterpretation of CBC data. Current Interpretive Data was last revised on 2017. Eosinophil pct 1.9 % [facility] Comment: Interpretive Data Percent cell count reference ranges are not reported, since discordance with absolute values may lead to misinterpretation of CBC data. Current Interpretive Data was last revised on 2017. Basophil pct 0.4 % [facility] Comment: Interpretive Data Percent cell count reference ranges are not reported, since discordance with absolute values may lead to misinterpretation of CBC data. Current Interpretive Data was last revised on 2017. Blood 06/14/2022 8:16 AM CDT 06/14/2022 8:29 AM CDT Catherine Adams MD LAB BLOOD ORDERABLES Final Result [facility] Department [place] [address] * (ABNORMAL) aPTT (06/14/2022 8:16 AM CDT) aPTT 67(H) 27 - 37 sec [facility] Comment: Interpretive Data Therapeutic heparin range: 60.0 - 94.0 seconds. Based on correlation with therapeutic heparin activity range of 0.3-0.7 Units/mL. Current interpretive data was last revised on 2020. Blood 06/14/2022 8:16 AM CDT 06/14/2022 8:30 AM CDT Narrative [facility] - 06/14/2022 8:54 AM CDT Draw STAT PTT 6 hrs after initiation of heparin infusion, draw STAT PTT 6 hours after each dose/rate change, and every 6 hours until 2 consecutive PTTs are within therapeutic range. Once two consecutive PTT's are therapeutic (60-94.9 seconds), then draw PTT every AM until heparin is discontinued. Catherine Adams MD LAB BLOOD ORDERABLES Final Result Performing Organization Address [facility] de Phone Number [facility] Department [place] [address] * (ABNORMAL) Blood gas, arterial (06/14/2022 8:16 AM CDT) pH, Art 7.41 7.35 - 7.45 [facility] PCO2, Arterial 38 35 - 45 mmHg [facility] PO2, Arterial 89 83 - 108 mmHg [facility] HCO3 Art (Calculated) 25 20 - 30 mmol/L [facility] BE, art 0 mmol/L [facility] Comment: Interpretive Data No Reference Range Established Current Interpretive Data was last revised on 2017 O2 Sat Art (Measured) 97(H) 90 - 95 % [facility] Blood 06/14/2022 8:16 AM CDT 06/14/2022 8:27 AM CDT Marcelina Lo CHIEF AIRLINE RADIO OPERATOR LAB BLOOD ORDERABLES Final Re sult Performing Organization Address [facility] de Phone Number [facility] Department [place] [address] * (ABNORMAL) Magnesium (06/14/2022 8:16 AM CDT) Pathologist [facility] Magnesium 2.9(H) 1.4 - 2.5 mg/dL [facility] Blood 06/14/2022 8:16 AM CDT 06/14/2022 8:29 AM CDT Marcelina Lo CHIEF AIRLINE RADIO OPERATOR LAB BLOOD ORDERABLES Final Re sult Performing Organization Address [facility] de Phone Number [facility] Department [place] [address] * (ABNORMAL) Comprehensive metabolic panel (06/14/2022 8:16 AM CDT) Sodium 134(L) 135 - 145 mmol/L [facility] Potassium, pl 4.7 3.3 - 4.9 mmol/L [facility] Comment:Hemolyzed; Potassium value may be falsely elevated by as much as 0.3-0.5 mmol/L. Suggest redraw and reanalysis. Chloride 100 97 - 110 mmol/L [facility] CO2 25 22 - 32 mmol/L [facility] Anion gap 9 2 - 15 mmol/L [facility] BUN 16 8 - 25 mg/dL [facility] Creatinine 2.19(H) 0.80 - 1.30 mg/dL [facility] Glucose 171 70 - 199 mg/dL [facility] Comment: Interpretive Data Fasting glucose >/= [...] classification and Diagnosis of Diabetes Diabetes Care 2017;40 (Suppl. 1):S11. Current interpretive data was last revised 2017. Calcium 9.5 8.5 - 10.3 mg/dL [facility] Bilirubin, total 0.6 0.1 - 1.2 mg/dL [facility] Protein, pl 6.6 6.5 - 8.5 g/dL [facility] Albumin 3.1(L) 3.5 - 5.0 g/dL [facility] Alk phos 276(H) 40 - 130 Units/L [facility] ALT 48 7 - 55 Units/L [facility] AST 81(H) 10 - 50 Units/L [facility] Comment:Hemolyzed; result ma y be falsely elevated Blood 06/14/2022 8:16 AM CDT 06/14/2022 8:29 AM CDT us Marcelina Lo CHIEF AIRLINE RADIO OPERATOR LAB BLOOD ORDERABLES Final Re sult Performing Organization Address City/[facility]/ZIP Co de Phone Number [facility] Department [place] [address] * (ABNORMAL) CBC with auto differential (06/14/2022 8:16 AM CDT) WBC 15.7(H) 3.8 - 9.9 K/cumm [facility] Hgb 8.3(L) 13.0 - 17.5 g/dL [facility] Hct 25.5(L) 38.9 - 50.3 % [facility] Plt 217 150 - 400 K/cumm [facility] MPV 10.6 9.1 - 12.3 fL [facility] RBC 2.63(L) 4.30 - 5.80 M/cumm [facility] MCV 97.0(H) 81.3 - 96.4 fL [facility] MCH 31.6 27.1 - 33.3 pg [facility] MCHC 32.5 32.3 - 35.7 g/dL [facility] RDW CV 13.8 11.1 - 14.9 % [facility] RDW SD 48.2(H) 35.7 - 48.1 fL [facility] NRBC abs 0.07(H) 0.00 - 0.01 K/cumm [facility] Blood 06/14/2022 8:16 AM CDT 06/14/2022 8:29 AM CDT us Marcelina Lo CHIEF AIRLINE RADIO OPERATOR LAB BLOOD ORDERABLES Final Re sult [facility] Department [place] [address] * POCT glucose (06/14/2022 7:46 AM CDT) Glucose, POC 180 70 - 199 mg/dL [facility] Blood 06/14/2022 7:46 AM CDT 06/14/2022 7:46 AM CDT Catherine Adams MD LAB POCT ORDERABLES - DEVIC E Final Result [facility] Department [place] [address] * XR Chest 1 View (06/14/2022 4:14 AM CDT) Anatomical Region Laterality Modality Body, Chest N/A Computed Radiogr aphy 06/14/2022 9:29 AM CDT Impressions 06/14/2022 9:31 AM CDT Endotracheal tube 4 cm above boni. Gastric tube collimated off radiograph. Left internal jugular central venous catheter with tip at the confluence of the brachiocephalic and superior vena cava. Right lung is clear with resolution of the previously seen interstitial opacities. Small left pleural effusion with associated left lower lobe collapse. Cardiomediastinal contours are stable. Dictated by: Fernando Reinoso M.D. The radiology attending physician has personally reviewed this study, and had reviewed and/or edited this written report and agrees with it. Electronically signed by: Wilma Haskins M.D. Narrative 06/14/2022 9:31 AM CDT EXAMINATION: 1 view chest radiograph The current study is compared with the prior radiograph dated 06/13/2022 . Procedure Note Wilma Haskins MD - 06/14/2022 EXAMINATION: 1 view chest radiograph The current study is compared with the prior radiograph dated 06/13/2022 . IMPRESSION: Endotracheal tube 4 cm above boni. Gastric tube collimated off radiograph. Left internal jugular central venous catheter with tip at the confluence of the brachiocephalic and superior vena cava. Right lung is clear with resolution of the previously seen interstitial opacities. Small left pleural effusion with associated left lower lobe collapse. Cardiomediastinal contours are stable. Dictated by: Fernando Reinoso M.D. The radiology attending physician has personally reviewed this study, and had reviewed and/or edited this written report and agrees with it. Electronically signed by: Wilma Haskins M.D. us Catherine Adams MD IMG XR PROCEDURES Final Res ult * POCT glucose (06/14/2022 4:01 AM CDT) Glucose, POC 163 70 - 199 mg/dL [facility] Blood 06/14/2022 4:01 AM CDT 06/14/2022 4:01 AM CDT us Catherine Adams MD LAB POCT ORDERABLES - DEVIC E Final Result [facility] Department [place] [address] * POCT glucose (06/13/2022 11:38 PM CDT) Glucose, POC 175 70 - 199 mg/dL [facility] Blood 06/13/2022 11:3 8 PM CDT 06/13/2022 11:38 PM CDT Result [facility] us Catherine Adams MD LAB POCT ORDERABLES - DEVIC E Final Result [facility] Department [place] [address] * (ABNORMAL) aPTT (06/13/2022 10:49 PM CDT) aPTT 72(H) 27 - 37 sec [facility] Comment: Interpretive Data Therapeutic heparin range: 60.0 - 94.0 seconds. Based on correlation with therapeutic heparin activity range of 0.3-0.7 Units/mL. Current interpretive data was last revised on 2020. Blood 06/13/2022 10:4 9 PM CDT 06/13/2022 11:55 PM CDT Narrative [facility] - 06/14/2022 12:04 AM CDT Check aPTT 6 hours after the start of Heparin infusion and 6 hours after any change in Heparin rate. (Target aPTT 61-80 seconds). Call Nephrology if outside range. Catherine Adams MD LAB BLOOD ORDERABLES Final Result Performing Organization Address [facility]/ZIP Co de Phone Number [facility] [place] [address] * (ABNORMAL) Vancomycin level trough (06/13/2022 10:49 PM CDT) [facility] Vancomycin trough 23.3(H) 10.0 - 20.0 mcg/mL [facility] Blood 06/13/2022 10:4 9 PM CDT 06/13/2022 11:10 PM CDT Catherine Adams MD LAB BLOOD ORDERABLES Final Result Performing Organization Address [facility] de Phone Number [facility] [place] [address] * (ABNORMAL) CBC without differential (06/13/2022 10:49 PM CDT) [facility] WBC 15.0(H) 3.8 - 9.9 K/cumm [facility] Hgb 7.7(L) 13.0 - 17.5 g/dL [facility] Hct 22.7(L) 38.9 - 50.3 % [facility] Plt 206 150 - 400 K/cumm [facility] MPV 10.6 9.1 - 12.3 fL [facility] RBC 2.41(L) 4.30 - 5.80 M/cumm [facility] MCV 94.2 81.3 - 96.4 fL [facility] MCH 32.0 27.1 - 33.3 pg [facility] MCHC 33.9 32.3 - 35.7 g/dL [facility] RDW CV 13.7 11.1 - 14.9 % [facility] RDW SD 46.4 35.7 - 48.1 fL [facility] NRBC abs 0.05(H) 0.00 - 0.01 K/cumm [facility] Blood 06/13/2022 10:4 9 PM CDT 06/13/2022 11:10 PM CDT Catherine Adams MD LAB BLOOD ORDERABLES Final Result Performing Organization Address City/[facility]/ZIP Co de Phone Number [facility] Department [place] [address] * (ABNORMAL) POCT glucose (06/13/2022 10:48 PM CDT) Glucose, POC 200(H) 70 - 199 mg/dL [facility] Blood 06/13/2022 10:4 8 PM CDT 06/13/2022 10:48 PM CDT Catherine Adams MD LAB POCT ORDERABLES - DEVIC E Final Result Performing Organization Address City/[facility] Co de Phone Number [facility] Department [place] [address] * POCT glucose (06/13/2022 8:28 PM CDT) Glucose, POC 182 70 - 199 mg/dL [facility] Blood 06/13/2022 8:28 PM CDT 06/13/2022 8:28 PM CDT Catherine Adams MD LAB POCT ORDERABLES - DEVIC E Final Result Performing Organization Address City/[facility] Co de Phone Number [facility] [place] [address] * (ABNORMAL) eGFR (06/13/2022 8:17 PM CDT) eGFR 35(L) 90 - 130 mL/min/1. 73 m2 [facility] Comment: Interpretive Data Reference Interval Normal [...] interpretive data was last reviewed 2021. Blood 06/13/2022 8:17 PM CDT 06/13/2022 8:58 PM CDT Catherine Adams MD LAB BLOOD ORDERABLES Final Result [facility] [place] [address] * (ABNORMAL) Differential, auto (06/13/2022 8:17 PM CDT) Neutrophil abs 10.6(H) 1.7 - 6.5 K/cumm [facility] Imm gran abs 2.2(H) 0.0 - 0.1 K/cumm [facility] Lymphocyte abs 2.3 0.8 - 3.3 K/cumm [facility] Monocyte abs 1.5(H) 0.2 - 0.8 K/cumm [facility] Eosinophil abs 0.3 0.0 - 0.5 K/cumm [facility] Basophil abs 0.1 0.0 - 0.1 K/cumm [facility] Neutrophil pct 62.7 % [facility] Comment: Confirmed by smear review Interpretive Data Percent cell count reference ranges are not reported, since discordance with absolute values may lead to misinterpretation of CBC data. Current Interpretive Data was last revised on 2017. Imm gran pct 13.0 % [facility] Comment: Interpretive Data Percent cell count reference ranges are not reported, since discordance with absolute values may lead to misinterpretation of CBC data. Current Interpretive Data was last revised on 2017. Lymphocyte pct 13.4 % [facility] Comment: Interpretive Data Percent cell count reference ranges are not reported, since discordance with absolute values may lead to misinterpretation of CBC data. Current Interpretive Data was last revised on 2017. Monocyte pct 8.9 % [facility] Comment: Interpretive Data Percent cell count reference ranges are not reported, since discordance with absolute values may lead to misinterpretation of CBC data. Current Interpretive Data was last revised on 2017. Eosinophil pct 1.7 % [facility] Comment: Interpretive Data Percent cell count reference ranges are not reported, since discordance with absolute values may lead to misinterpretation of CBC data. Current Interpretive Data was last revised on 2017. Basophil pct 0.3 % [facility] Comment: Interpretive Data Percent cell count reference ranges are not reported, since discordance with absolute values may lead to misinterpretation of CBC data. Current Interpretive Data was last revised on 2017. Blood 06/13/2022 8:17 PM CDT 06/13/2022 8:34 PM CDT us Catherine Adams MD LAB BLOOD ORDERABLES Final Result [facility] Department [place] [address] * (ABNORMAL) Magnesium (06/13/2022 8:17 PM CDT) Magnesium 2.7(H) 1.4 - 2.5 mg/dL [facility] Blood 06/13/2022 8:17 PM CDT 06/13/2022 8:33 PM CDT Catherine Adams MD LAB BLOOD ORDERABLES Final Result [facility] Department [place] [address] * (ABNORMAL) Comprehensive metabolic panel (06/13/2022 8:17 PM CDT) Pathologist [facility] Sodium 135 135 - 145 mmol/L [facility] Potassium, pl 4.9 3.3 - 4.9 mmol/L [facility] Chloride 99 97 - 110 mmol/L [facility] CO2 26 22 - 32 mmol/L [facility] Anion gap 10 2 - 15 mmol/L [facility] BUN 17 8 - 25 mg/dL [facility] Creatinine 2.21(H) 0.80 - 1.30 mg/dL [facility] Glucose 179 70 - 199 mg/dL [facility] Comment: Interpretive Data Fasting glucose >/= [...] classification and Diagnosis of Diabetes Diabetes Care 2017;40 (Suppl. 1):S11. Current interpretive data was last revised 2017. Calcium 8.9 8.5 - 10.3 mg/dL [facility] Bilirubin, total 0.6 0.1 - 1.2 mg/dL [facility] Protein, pl 6.2(L) 6.5 - 8.5 g/dL [facility] Albumin 3.0(L) 3.5 - 5.0 g/dL [facility] Alk phos 274(H) 40 - 130 Units/L [facility] ALT 47 7 - 55 Units/L [facility] AST 80(H) 10 - 50 Units/L [facility] Blood 06/13/2022 8:17 PM CDT 06/13/2022 8:33 PM CDT Catherine Adams MD LAB BLOOD ORDERABLES Final Result Performing Organization Address [facility] Co de Phone Number [facility] [place] [address] * Lactate, whole blood (06/13/2022 8:17 PM CDT) Lactate, bld 0.8 0.7 - 2.0 mmol/L [facility] Blood 06/13/2022 8:17 PM CDT 06/13/2022 8:26 PM CDT Marcelina Lo CHIEF AIRLINE RADIO OPERATOR LAB BLOOD ORDERABLES Final Re sult Performing Organization Address [facility] Co de Phone Number [facility] [place] [address] * (ABNORMAL) Blood gas, arterial (06/13/2022 8:17 PM CDT) pH, Art 7.42 7.35 - 7.45 [facility] PCO2, Arterial 37 35 - 45 mmHg [facility] PO2, Arterial 73(L) 83 - 108 mmHg [facility] HCO3 Art (Calculated) 24 20 - 30 mmol/L [facility] BE, art 0 mmol/L [facility] Comment: Interpretive Data No Reference Range Established Current Interpretive Data was last revised on 2017 O2 Sat Art (Measured) 94 90 - 95 % [facility] Blood 06/13/2022 8:17 PM CDT 06/13/2022 8:26 PM CDT Marcelina D. Lo CHIEF AIRLINE RADIO OPERATOR LAB BLOOD ORDERABLES Final Re sult Performing Organization Address [facility] Co de Phone Number [facility] Department [place] [address] * (ABNORMAL) Triglycerides (06/13/2022 8:17 PM CDT) Pathologist [facility] Triglycerides 324(H) <=149 mg/dL [facility] Comment: Interpretive Data Ages < or [...] Interpretive Data was last revised on 2018. Blood 06/13/2022 8:17 PM CDT 06/13/2022 8:33 PM CDT Narrative [facility] - 06/13/2022 9:29 PM CDT While on propofol infusion. Catherine Adams MD LAB BLOOD ORDERABLES Final Result Performing Organization Address [facility] de Phone Number [facility] Department [place] [address] * Phosphorus (06/13/2022 8:17 PM CDT) Pathologist [facility] Phosphorus, pl 3.1 2.3 - 4.5 mg/dL [facility] Blood 06/13/2022 8:17 PM CDT 06/13/2022 8:33 PM CDT Marcelina Lo CHIEF AIRLINE RADIO OPERATOR LAB BLOOD ORDERABLES Final Re sult Performing Organization Address [facility] Co de Phone Number [facility] [place] [address] * (ABNORMAL) Beta-hydroxybutyrate (06/13/2022 8:17 PM CDT) [facility] Beta-Hydroxybut yrate 1.2(H) 0.0 - 0.5 mmol/L [facility] Blood 06/13/2022 8:17 PM CDT 06/13/2022 8:34 PM CDT Marcelina Lo CHIEF AIRLINE RADIO OPERATOR LAB BLOOD ORDERABLES Edited R esult - Final Performing Organization Address [facility] Co de Phone Number [facility] [place] [address] * Lipase (06/13/2022 8:17 PM CDT) Pathologist [facility] Lipase 16 10 - 99 Units/L [facility] Blood 06/13/2022 8:17 PM CDT 06/13/2022 8:33 PM CDT Marcelina Lo CHIEF AIRLINE RADIO OPERATOR LAB BLOOD ORDERABLES Final Re sult Performing Organization Address [facility] Co de Phone Number [facility] [place] [address] * (ABNORMAL) CBC with auto differential (06/13/2022 8:17 PM CDT) Pathologist [facility] WBC 16.9(H) 3.8 - 9.9 K/cumm [facility] Hgb 8.0(L) 13.0 - 17.5 g/dL [facility] Hct 24.2(L) 38.9 - 50.3 % [facility] Plt 202 150 - 400 K/cumm [facility] MPV 10.7 9.1 - 12.3 fL [facility] RBC 2.55(L) 4.30 - 5.80 M/cumm [facility] MCV 94.9 81.3 - 96.4 fL [facility] MCH 31.4 27.1 - 33.3 pg [facility] MCHC 33.1 32.3 - 35.7 g/dL [facility] RDW CV 13.7 11.1 - 14.9 % [facility] RDW SD 46.6 35.7 - 48.1 fL [facility] NRBC abs 0.07(H) 0.00 - 0.01 K/cumm [facility] Blood 06/13/2022 8:17 PM CDT 06/13/2022 8:34 PM CDT us Marcelina Lo NP LAB BLOOD ORDERABLES Final Re sult [facility] Department [place] [address] * XR Chest 1 View (06/13/2022 4:45 PM CDT) Anatomical Region Laterality Modality Body, Chest N/A Computed Radiogr aphy 06/13/2022 4:58 PM CDT Impressions 06/13/2022 4:58 PM CDT Comparison is made to the prior from 06/13/2022. Endotracheal tube terminates 3 cm above the boni. Nasogastric tube terminates below the diaphragms on the [id number]. Left internal jugular approach central venous catheter tip overlies the confluence of the brachial cephalic veins, unchanged. Patchy bibasilar airspace opacities are increased from the prior radiograph earlier today, most consistent with interval aspiration. There is a small left pleural effusion. No pneumothorax. Electronically signed by: Abelardo Spencer M.D. Narrative 06/13/2022 4:58 PM CDT EXAMINATION: 1 view chest radiograph Procedure Note Abelardo Spencer MD - 06/13/2022 EXAMINATION: 1 view chest radiograph IMPRESSION: Comparison is made to the prior from 06/13/2022. Endotracheal tube terminates 3 cm above the boni. Nasogastric tube terminates below the diaphragms on the [id number]. Left internal jugular approach central venous catheter tip overlies the confluence of the brachial cephalic veins, unchanged. Patchy bibasilar airspace opacities are increased from the prior radiograph earlier today, most consistent with interval aspiration. There is a small left pleural effusion. No pneumothorax. Electronically signed by: Abelardo Spencer M.D. Catherine Adams MD IMG XR PROCEDURES Final Res ult * (ABNORMAL) aPTT (06/13/2022 4:12 PM CDT) aPTT 71(H) 27 - 37 sec [facility] Comment: Interpretive Data Therapeutic heparin range: 60.0 - 94.0 seconds. Based on correlation with therapeutic heparin activity range of 0.3-0.7 Units/mL. Current interpretive data was last revised on 2020. Blood 06/13/2022 4:12 PM CDT 06/13/2022 4:32 PM CDT Narrative [facility] - 06/13/2022 4:42 PM CDT Draw STAT PTT 6 hrs after initiation of heparin infusion, draw STAT PTT 6 hours after each dose/rate change, and every 6 hours until 2 consecutive PTTs are within therapeutic range. Once two consecutive PTT's are therapeutic (60-94.9 seconds), then draw PTT every AM until heparin is discontinued. Catherine Adams MD LAB BLOOD ORDERABLES Final Result [facility] [place] [address] * (ABNORMAL) Blood gas, arterial (06/13/2022 4:12 PM CDT) pH, Art 7.43 7.35 - 7.45 [facility] PCO2, Arterial 39 35 - 45 mmHg [facility] PO2, Arterial 63(L) 83 - 108 mmHg [facility] HCO3 Art (Calculated) 27 20 - 30 mmol/L [facility] BE, art 2 mmol/L [facility] Comment: Interpretive Data No Reference Range Established Current Interpretive Data was last revised on 2017 O2 Sat Art (Measured) 92 90 - 95 % [facility] Blood 06/13/2022 4:12 PM CDT 06/13/2022 4:20 PM CDT us Marcelina Lo CHIEF AIRLINE RADIO OPERATOR LAB BLOOD ORDERABLES Final Re sult Performing Organization Address [facility] Co de Phone Number [facility] Department [place] [address] * Potassium, whole blood (06/13/2022 4:12 PM CDT) Potassium, bld 4.5 3.3 - 4.9 mmol/L [facility] Blood 06/13/2022 4:12 PM CDT 06/13/2022 4:20 PM CDT us Marcelina Lo CHIEF AIRLINE RADIO OPERATOR LAB BLOOD ORDERABLES Final Re sult Performing Organization Address [facility] Co de Phone Number [facility] Department [place] [address] * Lactate, whole blood (06/13/2022 4:12 PM CDT) Lactate, bld 0.9 0.7 - 2.0 mmol/L [facility] Blood 06/13/2022 4:12 PM CDT 06/13/2022 4:20 PM CDT us Marcelina Lo CHIEF AIRLINE RADIO OPERATOR LAB BLOOD ORDERABLES Final Re sult Performing Organization Address [facility] Co de Phone Number [facility] [place] [address] * POCT glucose (06/13/2022 4:11 PM CDT) Glucose, POC 99 70 - 199 mg/dL [facility] Blood 06/13/2022 4:11 PM CDT 06/13/2022 4:11 PM CDT Catherine Adams MD LAB POCT ORDERABLES - DEVIC E Final Result Performing Organization Address City/[facility]/ZIP Co de Phone Number [facility] [place] [address] * POCT glucose (06/13/2022 12:29 PM CDT) [facility] Glucose, POC 129 70 - 199 mg/dL [facility] Blood 06/13/2022 12:2 9 PM CDT 06/13/2022 12:29 PM CDT Catherine Adams MD LAB POCT ORDERABLES - DEVIC E Final Result Performing Organization Address City/[facility] [place] [address] * (ABNORMAL) Blood gas, arterial (06/13/2022 12:20 PM CDT) [facility] pH, Art 7.40 7.35 - 7.45 [facility] PCO2, Arterial 42 35 - 45 mmHg [facility] PO2, Arterial 60(L) 83 - 108 mmHg [facility] HCO3 Art (Calculated) 27 20 - 30 mmol/L [facility] BE, art 2 mmol/L [facility] Comment: Interpretive Data No Reference Range Established Current Interpretive Data was last revised on 2017 O2 Sat Art (Measured) 90 90 - 95 % [facility] Blood 06/13/2022 12:2 0 PM CDT 06/13/2022 1:01 PM CDT us Marcelina Lo NP LAB BLOOD ORDERABLES Final Re sult [facility] Department [place] [address] * XR Chest 1 View (06/13/2022 11:11 AM CDT) Anatomical Region Laterality Modality Body, Chest N/A Computed Radiogr aphy 06/13/2022 11:4 6 AM CDT Impressions 06/13/2022 12:01 PM CDT Gastric tube collimated off radiograph. Endotracheal tube with tip 6 cm above boni. Left internal jugular central venous catheter with tip in the left brachiocephalic. Improved right with worsening left basilar airspace opacities. Small left pleural effusion, with no definite right pleural effusion. No pneumothorax. Findings favored to represent shifting atelectasis versus underlying pneumonia. Dictated by: Fernando Reinoso M.D. The radiology attending physician has personally reviewed this study, and had reviewed and/or edited this written report and agrees with it. Electronically signed by: Naty Berumen M.D. Narrative 06/13/2022 12:01 PM CDT EXAMINATION: 1 view chest radiograph The current study is compared with the prior radiograph dated 06/12/2022. Procedure Note Naty Berumen MD - 06/13/2022 EXAMINATION: 1 view chest radiograph The current study is compared with the prior radiograph dated 06/12/2022. IMPRESSION: Gastric tube collimated off radiograph. Endotracheal tube with tip 6 cm above boni. Left internal jugular central venous catheter with tip in the left brachiocephalic. Improved right with worsening left basilar airspace opacities. Small left pleural effusion, with no definite right pleural effusion. No pneumothorax. Findings favored to represent shifting atelectasis versus underlying pneumonia. Dictated by: Fernando Reinoso M.D. The radiology attending physician has personally reviewed this study, and had reviewed and/or edited this written report and agrees with it. Electronically signed by: Naty Berumen M.D. Catherine Adams MD IMG XR PROCEDURES Final Res ult * (ABNORMAL) Potassium, whole blood (06/13/2022 9:41 AM CDT) Potassium, bld 5.7(H) 3.3 - 4.9 mmol/L [facility] Blood 06/13/2022 9:41 AM CDT 06/13/2022 9:47 AM CDT Marcelina Lo CHIEF AIRLINE RADIO OPERATOR LAB BLOOD ORDERABLES Final Re sult Performing Organization Address [facility]/ZIP Co de Phone Number [facility] Department [place] [address] * Lactate, whole blood (06/13/2022 9:41 AM CDT) Pathologist [facility] Lactate, bld 1.0 0.7 - 2.0 mmol/L [facility] Blood 06/13/2022 9:41 AM CDT 06/13/2022 9:47 AM CDT Marcelina Lo CHIEF AIRLINE RADIO OPERATOR LAB BLOOD ORDERABLES Final Re sult Performing Organization Address [facility]/ZIP Co de Phone Number [facility] Department [place] [address] * (ABNORMAL) Blood gas, arterial (06/13/2022 9:41 AM CDT) pH, Art 7.40 7.35 - 7.45 [facility] PCO2, Arterial 40 35 - 45 mmHg [facility] PO2, Arterial 66(L) 83 - 108 mmHg [facility] HCO3 Art (Calculated) 26 20 - 30 mmol/L [facility] BE, art 0 mmol/L [facility] Comment: Interpretive Data No Reference Range Established Current Interpretive Data was last revised on 2017 O2 Sat Art (Measured) 93 90 - 95 % [facility] Blood 06/13/2022 9:41 AM CDT 06/13/2022 9:47 AM CDT us Marcelina Lo CHIEF AIRLINE RADIO OPERATOR LAB BLOOD ORDERABLES Final Re sult Performing Organization Address [facility] Co de Phone Number [facility] [place] [address] * (ABNORMAL) POCT glucose (06/13/2022 9:38 AM CDT) Pathologist [facility] Glucose, POC 215(H) 70 - 199 mg/dL [facility] Blood 06/13/2022 9:38 AM CDT 06/13/2022 9:38 AM CDT Catherine Adams MD LAB POCT ORDERABLES - DEVIC E Final Result Performing Organization Address [facility] de Phone Number [facility] [place] [address] * TRANSTHORACIC ECHO (TTE) COMPLETE W DOPPLER/CF W CONTRAST W BUBBLE (06/13/2022 9:34 AM CDT) [facility] LV EF 65 % CARDIOREPORT Anatomical Region Laterality Modality Ultrasound 06/13/2022 7:10 AM CDT Narrative 06/13/2022 11:08 AM CDT Patient name: Adelia Garvin Date of test: 06/13/2022 Type of test: TTE w/Doppler Hospital #: 0 Date of : 1970 (M) Senior Art Director: Elli Larsen RDCS Referring Physician: CATHERINE ADAMS MD Contrast Agent: 0.8 ml. Optison Admin., (2.2 ml Wasted) and NS Bubble Study Contrast Administered by: Floor RN Supervised/Interpreted by: Vincenzo Stoddard MD Diagnosis: Location: [facility] Reason for test: TTE with bubble MV Structure: Normal, ?MV Motion: Normal, ?? Mitral Annulus: Normal AV Structure: tricuspid and is stenotic, ?? AV Motion: restricted Aotic root: Normal, ?TM: Normal, ?? PV: Normal Valvular Vegetations: none seen, ?Mass/Thrombi: none seen RA: Normal Measurements: ?M-Mode ?Normal ? Aotic Root: ? <3.8 ? LA: ? <4.0 ? RV: ? <2.8 ? LV(ED): ? <5.7 ? LV(ES): ? Variable ?2D Linear Normal ? Aotic Root: 3.9 cm ?<4.0 ? Ao Indexed: 1.6 cm/M2 <2.0 ? LA: ? <4.0 ? RV: ? 3.9 cm ?<4.2 ? LV(ED): ? 4.6 cm ?<5.9 ? LV(ES): ? 3.5 cm ?<4.0 ?2D Vol. ?? Normal ?Indexed ?? Indexed Normal RA: ? 23.0 ml ? 9.4 ml/M2 ? 11-39 ? LA: ? 67.0 ml ? 27.4 ml/M2 ?16-34 ? RV: ? <12.7 ? LV(ED): ? 124.0 ml ??62-150 ?50.7 ml/M2 ?<75 ? LV(ES): ? 43.0 ml ?? 21-61 ? 17.6 ml/M2 ?<32 ?3D Vol. ? Indexed Normal LV(ED): ? 47.5 mL/m2 ?? <75 ? LV(ES): ? 23.7 mL/m2 ?? <32 ? LV EF: 65 % ?? (Normal: >=52%) ?? LV Septum: 1.8 cm ?(Normal: <1.0 cm) Wall Motion Scoring (1=Normal 2=Hypo 3=Akinetic 4=Dyskin./Aneurysm 0=Not visualized) Parasternal Long [place]:MAS=1 BAS=1 MIL=1 IVETH=1 Parasternal Short [place]:MAS=1 MIS=1 [place]=1 MIL=1 MAL=1 MA=1 Apical 4 Chambers:=1 MIS=1 BIS=1 BAL=1 MAL=1 AL=1 AC=1 Apical 2 Chambers:AI=1 [place]=1 BI=1 BA=1 MA=1 AA=1 AC=1 LV Global Longitudinal Strain: -16.1% ??(Normal <-17%) RV Global Longitudinal Strain: -24.4% ??(Normal <-17%) LV Function: Normal LV Ejection Fraction, (EF=52-72%) RV Function: Normal Septal Motion: Normal Pericardial Effusion: none seen Atrial Septum: Normal DOPPLER/COLOR FLOW DOPPLER RESULTS: Diastolic Function: Grade I, altered relax. w/N. LA pres. Tricuspid Valve: normal TV Pulmonic Valve: normal PV AV Regurgitation: No AR seen AV Stenosis: mild AV Area: 1.5 cm2 AV Pressure Gradient (mmHg): Mean: 14, Peak:18 MV Regurgitation: No MR seen MV Stenosis: no MS MV Area: ??cm2 MV Pressure Gradient (mmHg): Mean: 0 MV ERO: ??cm Regurg. Vol.: ??ml/beat Regurg. Frac.: ??% PA Pressure: ??mmHg DOPPLER/COLOR FOLOW DOPPLER COMMENTS: No AR seen, No MR seen, mild , no MS, normal TV, normal PV. Diastolic function: Grade I, altered relax. w/N. LA pres. CONTRAST: 0.8 ml. Optison Admin., (2.2 ml Wasted) and NS Bubble Study SUMMARY: LA is normal. Normal RV cavity size and function. LV cavity size is normal. Moderate concentric LV hypertrophy and normal EF=65$% and preserved strain. Mild with MPG=14 mm Hg. Normal Inferior vena cava. Normal aorta. Compared to 06/08/2022, Ef is better and hypokinesis in LAD distribution is not evident. Impella is no longer present Confirmed on ??06/13/2022 - 11:08:41 by Vincenzo Stoddard MD By signing this report, the attending residential lawn specialist certifies that he or she has personally supervised and interpreted the echocardiogram and has reviewed and or edited and agrees with the written comments contained within the report. Procedure Note Vincnezo Stoddard MD - 06/13/2022 Patient name: Adelia Garvin Date of test: 06/13/2022 Type of test: TTE w/Doppler Hospital #: 0 Date of : 1970 (M) Senior Art Director: Elli Larsen RDCS Referring Physician: CATHERINE ADAMS MD Contrast Agent: 0.8 ml. Optison Admin., (2.2 ml Wasted) and NS Bubble Study Contrast Administered by: Floor RN Supervised/Interpreted by: Vincenzo Stoddard MD Diagnosis: Location: [facility] Reason for test: TTE with bubble MV Structure: Normal, MV Motion: Normal, Mitral Annulus: Normal AV Structure: tricuspid and is stenotic, AV Motion: restricted Aotic root: Normal, TM: Normal, PV: Normal Valvular Vegetations: none seen, Mass/Thrombi: none seen RA: Normal Measurements: M-Mode Normal Aotic Root: <3.8 LA: <4.0 RV: <2.8 LV(ED): <5.7 LV(ES): Variable 2D Linear Normal Aotic Root: 3.9 cm <4.0 Ao Indexed: 1.6 cm/M2 <2.0 LA: <4.0 RV: 3.9 cm <4.2 LV(ED): 4.6 cm <5.9 LV(ES): 3.5 cm <4.0 2D Vol. Normal Indexed Indexed Normal RA: 23.0 ml 9.4 ml/M2 11-39 LA: 67.0 ml 27.4 ml/M2 16-34 RV: <12.7 LV(ED): 124.0 ml 62-150 50.7 ml/M2 <75 LV(ES): 43.0 ml 21-61 17.6 ml/M2 <32 3D Vol. Indexed Normal LV(ED): 47.5 mL/m2 <75 LV(ES): 23.7 mL/m2 <32 LV EF: 65 % (Normal: >=52%) LV Septum: 1.8 cm (Normal: <1.0 cm) Wall Motion Scoring (1=Normal 2=Hypo 3=Akinetic 4=Dyskin./Aneurysm 0=Not visualized) Parasternal Long [place]:MAS=1 BAS=1 MIL=1 IVETH=1 Parasternal Short [place]:MAS=1 MIS=1 [place]=1 MIL=1 MAL=1 MA=1 Apical 4 Chambers:=1 MIS=1 BIS=1 BAL=1 MAL=1 AL=1 AC=1 Apical 2 Chambers:AI=1 [place]=1 BI=1 BA=1 MA=1 AA=1 AC=1 LV Global Longitudinal Strain: -16.1% (Normal <-17%) RV Global Longitudinal Strain: -24.4% (Normal <-17%) LV Function: Normal LV Ejection Fraction, (EF=52-72%) RV Function: Normal Septal Motion: Normal Pericardial Effusion: none seen Atrial Septum: Normal DOPPLER/COLOR FLOW DOPPLER RESULTS: Diastolic Function: Grade I, altered relax. w/N. LA pres. Tricuspid Valve: normal TV Pulmonic Valve: normal PV AV Regurgitation: No AR seen AV Stenosis: mild AV Area: 1.5 cm2 AV Pressure Gradient (mmHg): Mean: 14, Peak:18 MV Regurgitation: No MR seen MV Stenosis: no MS MV Area: cm2 MV Pressure Gradient (mmHg): Mean: 0 MV ERO: cm Regurg. Vol.: ml/beat Regurg. Frac.: % PA Pressure: mmHg DOPPLER/COLOR FOLOW DOPPLER COMMENTS: No AR seen, No MR seen, mild , no MS, normal TV, normal PV. Diastolic function: Grade I, altered relax. w/N. LA pres. CONTRAST: 0.8 ml. Optison Admin., (2.2 ml Wasted) and NS Bubble Study SUMMARY: LA is normal. Normal RV cavity size and function. LV cavity size is normal. Moderate concentric LV hypertrophy and normal EF=65$% and preserved strain. Mild with MPG=14 mm Hg. Normal Inferior vena cava. Normal aorta. Compared to 06/08/2022, Ef is better and hypokinesis in LAD distribution is not evident. Impella is no longer present Confirmed on 06/13/2022 - 11:08:41 by Vincenzo Stoddard MD By signing this report, the attending residential lawn specialist certifies that he or she has personally supervised and interpreted the echocardiogram and has reviewed and or edited and agrees with the written comments contained within the report. us Catherine Adams MD CV ECHO PROCEDURES Final Re sult * (ABNORMAL) Manual Differential (06/13/2022 9:33 AM CDT) Differential Manual [facility] Cells Counted 115 [facility] Neutrophil abs 13.0(H) 1.7 - 6.5 K/cumm [facility] Imm gran abs 1.2(H) 0.0 - 0.1 K/cumm [facility] Lymphocyte abs 0.7(L) 0.8 - 3.3 K/cumm [facility] Monocyte abs 0.4 0.2 - 0.8 K/cumm [facility] Eosinophil abs 0.3 0.0 - 0.5 K/cumm [facility] Neutrophil pct 83.6 % [facility] Comment: Interpretive Data Percent cell count reference ranges are not reported, since discordance with absolute values may lead to misinterpretation of CBC data. Current Interpretive Data was last revised on 2017. Lymphocyte pct 4.3 % [facility] Comment: Interpretive Data Percent cell count reference ranges are not reported, since discordance with absolute values may lead to misinterpretation of CBC data. Current Interpretive Data was last revised on 2017. Monocyte pct 2.6 % [facility] Comment: Interpretive Data Percent cell count reference ranges are not reported, since discordance with absolute values may lead to misinterpretation of CBC data. Current Interpretive Data was last revised on 2017. Eosinophil pct 1.7 % [facility] Comment: Interpretive Data Percent cell count reference ranges are not reported, since discordance with absolute values may lead to misinterpretation of CBC data. Current Interpretive Data was last revised on 2017. Metamyelocyte pct 5.2 % [facility] Myelocyte pct 2.6 % [facility] Blood 06/13/2022 9:33 AM CDT 06/13/2022 10:10 AM CDT us Catherine Adams MD LAB BLOOD ORDERABLES Final Result Performing Organization Address City/State/[facility] Co de Phone Number [facility] Department [place] [address] * (ABNORMAL) eGFR (06/13/2022 9:33 AM CDT) eGFR 34(L) 90 - 130 mL/min/1. 73 m2 [facility] Comment: Interpretive Data Reference Interval [...] interpretive data was last reviewed 2021. Blood 06/13/2022 9:33 AM CDT 06/13/2022 10:06 AM CDT us Catherine Adams MD LAB BLOOD ORDERABLES Final Result Performing Organization Address [facility]/ZIP Co de Phone Number [facility] [employer] [place], [place] [id number] * (ABNORMAL) Magnesium (06/13/2022 9:33 AM CDT) Magnesium 2.8(H) 1.4 - 2.5 mg/dL [facility] Blood 06/13/2022 9:33 AM CDT 06/13/2022 10:06 AM CDT us Marcelina Lo CHIEF AIRLINE RADIO OPERATOR LAB BLOOD ORDERABLES Final Re sult Performing Organization Address [facility] Co de Phone Number [facility] Department [place] [address] * (ABNORMAL) Comprehensive metabolic panel (06/13/2022 9:33 AM CDT) Sodium 135 135 - 145 mmol/L [facility] Potassium, pl 5.6(H) 3.3 - 4.9 mmol/L [facility] Chloride 98 97 - 110 mmol/L [facility] CO2 26 22 - 32 mmol/L [facility] Anion gap 11 2 - 15 mmol/L [facility] BUN 19 8 - 25 mg/dL [facility] Creatinine 2.26(H) 0.80 - 1.30 mg/dL [facility] Glucose 217(H) 70 - 199 mg/dL [facility] Comment: Interpretive Data Fasting glucose >/= [...] classification and Diagnosis of Diabetes Diabetes Care 2017;40 (Suppl. 1):S11. Current interpretive data was last revised 2017. Calcium 8.7 8.5 - 10.3 mg/dL [facility] Bilirubin, total 0.7 0.1 - 1.2 mg/dL [facility] Protein, pl 6.5 6.5 - 8.5 g/dL [facility] Albumin 3.2(L) 3.5 - 5.0 g/dL [facility] Alk phos 300(H) 40 - 130 Units/L [facility] ALT 55 7 - 55 Units/L [facility] AST 90(H) 10 - 50 Units/L [facility] Blood 06/13/2022 9:33 AM CDT 06/13/2022 10:06 AM CDT us Marcelina Lo CHIEF AIRLINE RADIO OPERATOR LAB BLOOD ORDERABLES Final Re sult [facility] Department [place] [address] * (ABNORMAL) CBC with auto differential (06/13/2022 9:33 AM CDT) Pathologist [facility] WBC 15.6(H) 3.8 - 9.9 K/cumm [facility] Hgb 7.7(L) 13.0 - 17.5 g/dL [facility] Hct 23.1(L) 38.9 - 50.3 % [facility] Plt 191 150 - 400 K/cumm [facility] MPV 10.9 9.1 - 12.3 fL [facility] RBC 2.45(L) 4.30 - 5.80 M/cumm [facility] MCV 94.3 81.3 - 96.4 fL [facility] MCH 31.4 27.1 - 33.3 pg [facility] MCHC 33.3 32.3 - 35.7 g/dL [facility] RDW CV 13.6 11.1 - 14.9 % [facility] RDW SD 46.7 35.7 - 48.1 fL [facility] NRBC abs 0.05(H) 0.00 - 0.01 K/cumm [facility] Blood 06/13/2022 9:33 AM CDT 06/13/2022 10:06 AM CDT us Marcelina Lo CHIEF AIRLINE RADIO OPERATOR LAB BLOOD ORDERABLES Final Re sult Performing Organization Address City/[facility]/ZIP Co de Phone Number [facility] Department [place] [address] * (ABNORMAL) POCT glucose (06/13/2022 4:40 AM CDT) Glucose, POC 280(H) 70 - 199 mg/dL [facility] Blood 06/13/2022 4:40 AM CDT 06/13/2022 4:40 AM CDT Catherine Adams MD LAB POCT ORDERABLES - DEVIC E Final Result Performing Organization Address City/[facility]/ZIP Co de Phone Number [facility] Department [place] [address] * (ABNORMAL) Blood gas, arterial (06/13/2022 2:26 AM CDT) pH, Art 7.35 7.35 - 7.45 [facility] PCO2, Arterial 42 35 - 45 mmHg [facility] PO2, Arterial 78(L) 83 - 108 mmHg [facility] HCO3 Art (Calculated) 24 20 - 30 mmol/L [facility] BE, art -3 mmol/L [facility] Comment: Interpretive Data No Reference Range Established Current Interpretive Data was last revised on 2017 O2 Sat Art (Measured) 94 90 - 95 % [facility] Blood 06/13/2022 2:26 AM CDT 06/13/2022 2:58 AM CDT Marcelina Lo CHIEF AIRLINE RADIO OPERATOR LAB BLOOD ORDERABLES Final Re sult [facility] [place] [address] * (ABNORMAL) Blood gas, arterial (06/13/2022 1:11 AM CDT) pH, Art 7.35 7.35 - 7.45 [facility] PCO2, Arterial 44 35 - 45 mmHg [facility] PO2, Arterial 72(L) 83 - 108 mmHg [facility] HCO3 Art (Calculated) 25 20 - 30 mmol/L [facility] BE, art -1 mmol/L [facility] Comment: Interpretive Data No Reference Range Established Current Interpretive Data was last revised on 2017 O2 Sat Art (Measured) 94 90 - 95 % [facility] Blood 06/13/2022 1:11 AM CDT 06/13/2022 1:30 AM CDT Marcelina Lo CHIEF AIRLINE RADIO OPERATOR LAB BLOOD ORDERABLES Final Re sult Performing Organization Address City/[facility]/ZIP Co de Phone Number [facility] [place] [address] * Potassium, whole blood (06/13/2022 1:11 AM CDT) Potassium, bld 4.8 3.3 - 4.9 mmol/L [facility] Blood 06/13/2022 1:11 AM CDT 06/13/2022 1:30 AM CDT Catherine Adams MD LAB BLOOD ORDERABLES Final Result [facility] [place] [address] * POCT glucose (06/12/2022 11:26 PM CDT) [facility] Glucose, POC 123 70 - 199 mg/dL [facility] Blood 06/12/2022 11:2 6 PM CDT 06/12/2022 11:26 PM CDT Catherine Adams MD LAB POCT ORDERABLES - DEVIC E Final Result Performing Organization Address [facility] [place] [address] * Lactate, whole blood (06/12/2022 8:55 PM CDT) [facility] Lactate, bld 1.2 0.7 - 2.0 mmol/L [facility] Blood 06/12/2022 8:55 PM CDT 06/12/2022 9:59 PM CDT Jeffrey Green MD LAB BLOOD ORDERABLES Final Result Performing Organization Address [facility] [place] [address] * (ABNORMAL) eGFR (06/12/2022 8:47 PM CDT) [facility] eGFR 35(L) 90 - 130 mL/min/1. 73 m2 [facility] Comment: Interpretive Data Reference Interval [...] interpretive data was last reviewed 2021. Blood 06/12/2022 8:47 PM CDT 06/12/2022 10:04 PM CDT us Catherine Adams MD LAB BLOOD ORDERABLES Final Result Performing Organization Address City/State/[facility] Co de Phone Number [facility] Department [place] [address] * (ABNORMAL) Differential, auto (06/12/2022 8:47 PM CDT) Neutrophil abs 9.5(H) 1.7 - 6.5 K/cumm [facility] Imm gran abs 1.9(H) 0.0 - 0.1 K/cumm [facility] Lymphocyte abs 1.8 0.8 - 3.3 K/cumm [facility] Monocyte abs 1.0(H) 0.2 - 0.8 K/cumm [facility] Eosinophil abs 0.3 0.0 - 0.5 K/cumm [facility] Basophil abs 0.0 0.0 - 0.1 K/cumm [facility] Neutrophil pct 65.3 % [facility] Comment: Confirmed by smear review Interpretive Data Percent cell count reference ranges are not reported, since discordance with absolute values may lead to misinterpretation of CBC data. Current Interpretive Data was last revised on 2017. Imm gran pct 13.1 % [facility] Comment: Interpretive Data Percent cell count reference ranges are not reported, since discordance with absolute values may lead to misinterpretation of CBC data. Current Interpretive Data was last revised on 2017. Lymphocyte pct 12.0 % [facility] Comment: Interpretive Data Percent cell count reference ranges are not reported, since discordance with absolute values may lead to misinterpretation of CBC data. Current Interpretive Data was last revised on 2017. Monocyte pct 7.0 % [facility] Comment: Interpretive Data Percent cell count reference ranges are not reported, since discordance with absolute values may lead to misinterpretation of CBC data. Current Interpretive Data was last revised on 2017. Eosinophil pct 2.3 % [facility] Comment: Interpretive Data Percent cell count reference ranges are not reported, since discordance with absolute values may lead to misinterpretation of CBC data. Current Interpretive Data was last revised on 2017. Basophil pct 0.3 % [facility] Comment: Interpretive Data Percent cell count reference ranges are not reported, since discordance with absolute values may lead to misinterpretation of CBC data. Current Interpretive Data was last revised on 2017. Blood 06/12/2022 8:47 PM CDT 06/12/2022 10:10 PM CDT Catherine Adams MD LAB BLOOD ORDERABLES Final Result [facility] [place] [address] * (ABNORMAL) Magnesium (06/12/2022 8:47 PM CDT) Magnesium 2.7(H) 1.4 - 2.5 mg/dL [facility] Blood 06/12/2022 8:47 PM CDT 06/12/2022 10:04 PM CDT Catherine Adams MD LAB BLOOD ORDERABLES Final Result Performing Organization Address City/[facility]/ZIP Co de Phone Number [facility] Department [place] [address] * (ABNORMAL) Comprehensive metabolic panel (06/12/2022 8:47 PM CDT) Sodium 134(L) 135 - 145 mmol/L [facility] Potassium, pl 5.1(H) 3.3 - 4.9 mmol/L [facility] Comment:Hemolyzed; Potassium value may be falsely elevated by as much as 0.6-1.0 mmol/L. Suggest redraw and reanalysis. Chloride 101 97 - 110 mmol/L [facility] CO2 24 22 - 32 mmol/L [facility] Anion gap 9 2 - 15 mmol/L [facility] BUN 19 8 - 25 mg/dL [facility] Creatinine 2.22(H) 0.80 - 1.30 mg/dL [facility] Glucose 101 70 - 199 mg/dL [facility] Comment: Interpretive Data Fasting glucose >/= [...] classification and Diagnosis of Diabetes Diabetes Care 2017;40 (Suppl. 1):S11. Current interpretive data was last revised 2017. Calcium 8.7 8.5 - 10.3 mg/dL [facility] Bilirubin, total 0.8 0.1 - 1.2 mg/dL [facility] Protein, pl 6.5 6.5 - 8.5 g/dL [facility] Albumin 2.7(L) 3.5 - 5.0 g/dL [facility] Alk phos 300(H) 40 - 130 Units/L [facility] ALT 57(H) 7 - 55 Units/L [facility] AST 110(H) 10 - 50 Units/L [facility] Comment:Hemolyzed; result ma y be falsely elevated Blood 06/12/2022 8:47 PM CDT 06/12/2022 10:04 PM CDT us Catherine Adams MD LAB BLOOD ORDERABLES Final Result Performing Organization Address [facility] Co de Phone Number [facility] [place] [address] * (ABNORMAL) Blood gas, arterial (06/12/2022 8:47 PM CDT) pH, Art 7.36 7.35 - 7.45 [facility] PCO2, Arterial 47(H) 35 - 45 mmHg [facility] PO2, Arterial 84 83 - 108 mmHg [facility] HCO3 Art (Calculated) 27 20 - 30 mmol/L [facility] BE, art 1 mmol/L [facility] Comment: Interpretive Data No Reference Range Established Current Interpretive Data was last revised on 2017 O2 Sat Art (Measured) 96(H) 90 - 95 % [facility] Blood 06/12/2022 8:47 PM CDT 06/12/2022 9:59 PM CDT us Marcelina Lo CHIEF AIRLINE RADIO OPERATOR LAB BLOOD ORDERABLES Final Re sult Performing Organization Address [facility] Co de Phone Number [facility] [place] [address] * (ABNORMAL) aPTT (06/12/2022 8:47 PM CDT) aPTT 78(H) 27 - 37 sec [facility] Comment: Interpretive Data Therapeutic heparin range: 60.0 - 94.0 seconds. Based on correlation with therapeutic heparin activity range of 0.3-0.7 Units/mL. Current interpretive data was last revised on 2020. Blood 06/12/2022 8:47 PM CDT 06/12/2022 10:12 PM CDT Narrative [facility] - 06/12/2022 10:40 PM CDT Check aPTT 6 hours after the start of Heparin infusion and 6 hours after any change in Heparin rate. (Target aPTT 61-80 seconds). Call Nephrology if outside range. Catherine Adams MD LAB BLOOD ORDERABLES Final Result Performing Organization Address [facility] Co de Phone Number [facility] Department [place] [address] * (ABNORMAL) Triglycerides (06/12/2022 8:47 PM CDT) Triglycerides 248(H) <=149 mg/dL [facility] Comment: Interpretive Data Ages < or [...] Interpretive Data was last revised on 2018. Blood 06/12/2022 8:47 PM CDT 06/12/2022 10:04 PM CDT Narrative [facility] - 06/12/2022 10:44 PM CDT While on propofol infusion. Catherine Adams MD LAB BLOOD ORDERABLES Final Result Performing Organization Address [facility] Co de Phone Number [facility] Department [place] [address] * Phosphorus (06/12/2022 8:47 PM CDT) Pathologist [facility] Phosphorus, pl 3.5 2.3 - 4.5 mg/dL [facility] Blood 06/12/2022 8:47 PM CDT 06/12/2022 10:04 PM CDT Marcelina Lo CHIEF AIRLINE RADIO OPERATOR LAB BLOOD ORDERABLES Final Re sult Performing Organization Address City/[facility]/ZIP Co de Phone Number [facility] [place] [address] * Beta-hydroxybutyrate (06/12/2022 8:47 PM CDT) [facility] Beta-Hydroxybut yrate 0.2 0.0 - 0.5 mmol/L [facility] Blood 06/12/2022 8:47 PM CDT 06/12/2022 10:00 PM CDT Marcelina Lo CHIEF AIRLINE RADIO OPERATOR LAB BLOOD ORDERABLES Edited R esult - Final Performing Organization Address [facility] Co de Phone Number [facility] [place] [address] * Lipase (06/12/2022 8:47 PM CDT) [facility] Lipase 16 10 - 99 Units/L [facility] Blood 06/12/2022 8:47 PM CDT 06/12/2022 10:04 PM CDT Marcelina Lo CHIEF AIRLINE RADIO OPERATOR LAB BLOOD ORDERABLES Final Re sult Performing Organization Address [facility] Co de Phone Number [facility] [place] [address] * (ABNORMAL) CBC with auto differential (06/12/2022 8:47 PM CDT) [facility] WBC 14.6(H) 3.8 - 9.9 K/cumm [facility] Hgb 8.1(L) 13.0 - 17.5 g/dL [facility] Hct 24.7(L) 38.9 - 50.3 % [facility] Plt 207 150 - 400 K/cumm [facility] MPV 11.0 9.1 - 12.3 fL [facility] RBC 2.61(L) 4.30 - 5.80 M/cumm [facility] MCV 94.6 81.3 - 96.4 fL [facility] MCH 31.0 27.1 - 33.3 pg [facility] MCHC 32.8 32.3 - 35.7 g/dL [facility] RDW CV 13.4 11.1 - 14.9 % [facility] RDW SD 45.9 35.7 - 48.1 fL [facility] NRBC abs 0.03(H) 0.00 - 0.01 K/cumm [facility] Blood 06/12/2022 8:47 PM CDT 06/12/2022 10:10 PM CDT us Marcelina Lo CHIEF AIRLINE RADIO OPERATOR LAB BLOOD ORDERABLES Final Re sult Performing Organization Address City/[facility]/ZIP Co de Phone Number [facility] Department [place] [address] * POCT glucose (06/12/2022 8:44 PM CDT) Glucose, POC 99 70 - 199 mg/dL [facility] Blood 06/12/2022 8:44 PM CDT 06/12/2022 8:44 PM CDT us Catherine Adams MD LAB POCT ORDERABLES - DEVIC E Final Result [facility] [place] [address] * POCT glucose (06/12/2022 4:01 PM CDT) Glucose, POC 110 70 - 199 mg/dL [facility] Blood 06/12/2022 4:01 PM CDT 06/12/2022 4:01 PM CDT Catherine Adams MD LAB POCT ORDERABLES - DEVIC E Final Result Performing Organization Address [facility] Co de Phone Number [facility] [place] [address] * (ABNORMAL) aPTT (06/12/2022 4:01 PM CDT) Pathologist [facility] aPTT 75(H) 27 - 37 sec [facility] Comment: Interpretive Data Therapeutic heparin range: 60.0 - 94.0 seconds. Based on correlation with therapeutic heparin activity range of 0.3-0.7 Units/mL. Current interpretive data was last revised on 2020. Blood 06/12/2022 4:01 PM CDT 06/12/2022 4:27 PM CDT Narrative [facility] - 06/12/2022 4:48 PM CDT Check aPTT 6 hours after the start of Heparin infusion and 6 hours after any change in Heparin rate. (Target aPTT 61-80 seconds). Call Nephrology if outside range. Catherine Adams MD LAB BLOOD ORDERABLES Final Result Performing Organization Address [facility] de Phone Number [facility] [place] [address] * Blood gas, arterial (06/12/2022 4:01 PM CDT) pH, Art 7.42 7.35 - 7.45 [facility] PCO2, Arterial 41 35 - 45 mmHg [facility] PO2, Arterial 94 83 - 108 mmHg [facility] HCO3 Art (Calculated) 27 20 - 30 mmol/L [facility] BE, art 2 mmol/L [facility] Comment: Interpretive Data No Reference Range Established Current Interpretive Data was last revised on 2017 Blood 06/12/2022 4:01 PM CDT 06/12/2022 4:16 PM CDT Marcelina Lo CHIEF AIRLINE RADIO OPERATOR LAB BLOOD ORDERABLES Final Re sult Performing Organization Address [facility] Co de Phone Number [facility] Department [place] [address] * Aerobic culture and gram stain Tracheal aspirate Tracheal (06/12/2022 2:31 PM CDT) Direct Specimen Exam Stain: Rare polymorphonuclear leukocytes seen. Few squamous epithelial cells seen. Rare mixed bacterial stone seen on Gram stain. [facility] Report Final Report: Insignificant growth based on current clinical standards. [facility] Tracheal aspirate (Tracheal) 06/12/2022 2:31 PM CDT 06/12/2022 3:47 PM CDT Narrative [facility] - 06/14/2022 11:49 AM CDT Testing performed by [facility] ([phone]) Specimens submitted from normally sterile body sites will have all bacterial morphotypes identified. ??Specimens that contain grossly mixed stone and/or are from body sites that are not normally sterile will be examined for Staphylococcus aureus, Pseudomonas aeruginosa, beta-hemolytic strep, vancomycin-resistant Enterococcus and fungus. ??If any of these are isolated, the organism will be reported. Current interpretive data was last revised on 2017. Catherine Adams MD LAB MICROBIOLOGY - GENERAL ORDERABLES Final Result Performing Organization Address [facility] Co de Phone Number [facility] Department [place] [address] * XR Chest 1 View (06/12/2022 1:10 PM CDT) Anatomical Region Laterality Modality Body, Chest N/A Computed Radiogr aphy 06/13/2022 9:01 AM CDT Impressions 06/13/2022 10:47 AM CDT Endotracheal tube in unchanged position 4 cm above boni. Gastric tube projecting over the left upper quadrant collimated off radiograph. Left internal jugular central venous catheter with tip in the superior vena cava. Increased small right pleural effusions with mild basilar atelectasis, Moderate left basilar atelectasis, unchanged. No pneumothorax. No definite left pleural effusion. Cardiac mediastinal contours are stable. Dictated by: Fernando Reinoso M.D. The radiology attending physician has personally reviewed this study, and had reviewed and/or edited this written report and agrees with it. Electronically signed by: Ramirez Blake M.D. Narrative 06/13/2022 10:47 AM CDT EXAMINATION: 1 view chest radiograph The current study is compared with the prior radiograph dated 06/11/2022 Procedure Note Ramirez Blake MD - 06/13/2022 EXAMINATION: 1 view chest radiograph The current study is compared with the prior radiograph dated 06/11/2022 IMPRESSION: Endotracheal tube in unchanged position 4 cm above boni. Gastric tube projecting over the left upper quadrant collimated off radiograph. Left internal jugular central venous catheter with tip in the superior vena cava. Increased small right pleural effusions with mild basilar atelectasis, Moderate left basilar atelectasis, unchanged. No pneumothorax. No definite left pleural effusion. Cardiac mediastinal contours are stable. Dictated by: Fernando Reinoso M.D. The radiology attending physician has personally reviewed this study, and had reviewed and/or edited this written report and agrees with it. Electronically signed by: Ramirez Blake M.D. Catherine Adams MD IMG XR PROCEDURES Final Res ult * (ABNORMAL) Blood gas, arterial (06/12/2022 12:56 PM CDT) pH, Art 7.41 7.35 - 7.45 [facility] PCO2, Arterial 38 35 - 45 mmHg [facility] PO2, Arterial 135(H) 83 - 108 mmHg [facility] HCO3 Art (Calculated) 25 20 - 30 mmol/L [facility] BE, art 0 mmol/L [facility] Comment: Interpretive Data No Reference Range Established Current Interpretive Data was last revised on 2017 O2 Sat Art (Measured) 97(H) 90 - 95 % [facility] Blood 06/12/2022 12:5 6 PM CDT 06/12/2022 1:02 PM CDT Marcelina Lo CHIEF AIRLINE RADIO OPERATOR LAB BLOOD ORDERABLES Final Re sult Performing Organization Address [facility] de Phone Number [facility] Department [place] [address] * (ABNORMAL) Blood gas, arterial (06/12/2022 11:37 AM CDT) pH, Art 7.41 7.35 - 7.45 [facility] PCO2, Arterial 40 35 - 45 mmHg [facility] PO2, Arterial 82(L) 83 - 108 mmHg [facility] HCO3 Art (Calculated) 26 20 - 30 mmol/L [facility] BE, art 0 mmol/L [facility] Comment: Interpretive Data No Reference Range Established Current Interpretive Data was last revised on 2017 O2 Sat Art (Measured) 96(H) 90 - 95 % [facility] Blood 06/12/2022 11:3 7 AM CDT 06/12/2022 11:43 AM CDT us Marcelina oL CHIEF AIRLINE RADIO OPERATOR LAB BLOOD ORDERABLES Final Re sult Performing Organization Address [facility] de Phone Number [facility] Department [place] [address] * POCT glucose (06/12/2022 11:36 AM CDT) Glucose, POC 161 70 - 199 mg/dL [facility] Blood 06/12/2022 11:3 6 AM CDT 06/12/2022 11:36 AM CDT Catherine dAams MD LAB POCT ORDERABLES - DEVIC E Final Result Performing Organization Address [facility] de Phone Number [facility] Department [place] [address] * (ABNORMAL) Blood gas, arterial (06/12/2022 9:53 AM CDT) Pathologist [facility] pH, Art 7.42 7.35 - 7.45 [facility] PCO2, Arterial 36 35 - 45 mmHg [facility] PO2, Arterial 106 83 - 108 mmHg [facility] HCO3 Art (Calculated) 25 20 - 30 mmol/L [facility] BE, art 0 mmol/L [facility] Comment: Interpretive Data No Reference Range Established Current Interpretive Data was last revised on 2017 O2 Sat Art (Measured) 98(H) 90 - 95 % [facility] Blood 06/12/2022 9:53 AM CDT 06/12/2022 10:02 AM CDT us Marcelina Lo CHIEF AIRLINE RADIO OPERATOR LAB BLOOD ORDERABLES Final Re sult Performing Organization Address [facility] de Phone Number [facility] Department [place] [address] * (ABNORMAL) Manual Differential (06/12/2022 8:02 AM CDT) [facility] Differential Manual [facility] Cells Counted 116 [facility] Neutrophil abs 9.1(H) 1.7 - 6.5 K/cumm [facility] Imm gran abs 0.8(H) 0.0 - 0.1 K/cumm [facility] Lymphocyte abs 1.9 0.8 - 3.3 K/cumm [facility] Monocyte abs 0.3 0.2 - 0.8 K/cumm [facility] Eosinophil abs 0.4 0.0 - 0.5 K/cumm [facility] Neutrophil pct 72.5 % [facility] Comment: Interpretive Data Percent cell count reference ranges are not reported, since discordance with absolute values may lead to misinterpretation of CBC data. Current Interpretive Data was last revised on 2017. Lymphocyte pct 15.5 % [facility] Comment: Interpretive Data Percent cell count reference ranges are not reported, since discordance with absolute values may lead to misinterpretation of CBC data. Current Interpretive Data was last revised on 2017. Monocyte pct 2.6 % [facility] Comment: Interpretive Data Percent cell count reference ranges are not reported, since discordance with absolute values may lead to misinterpretation of CBC data. Current Interpretive Data was last revised on 2017. Eosinophil pct 3.4 % [facility] Comment: Interpretive Data Percent cell count reference ranges are not reported, since discordance with absolute values may lead to misinterpretation of CBC data. Current Interpretive Data was last revised on 2017. Metamyelocyte pct 2.6 % [facility] Myelocyte pct 3.4 % [facility] Blood 06/12/2022 8:02 AM CDT 06/12/2022 8:32 AM CDT Catherine Adams MD LAB BLOOD ORDERABLES Final Result Performing Organization Address City/State/[facility] Co de Phone Number [facility] Department [place] [address] * (ABNORMAL) eGFR (06/12/2022 8:02 AM CDT) eGFR 31(L) 90 - 130 mL/min/1. 73 m2 [facility] Comment: Interpretive Data Reference Interval Normal [...] interpretive data was last reviewed 2021. Blood 06/12/2022 8:02 AM CDT 06/12/2022 8:28 AM CDT Catherine Adams MD LAB BLOOD ORDERABLES Final Result Performing Organization Address [facility] Co de Phone Number [facility] Department [place] [address] * (ABNORMAL) aPTT (06/12/2022 8:02 AM CDT) aPTT 70(H) 27 - 37 sec [facility] Comment: Interpretive Data Therapeutic heparin range: 60.0 - 94.0 seconds. Based on correlation with therapeutic heparin activity range of 0.3-0.7 Units/mL. Current interpretive data was last revised on 2020. Blood 06/12/2022 8:02 AM CDT 06/12/2022 8:15 AM CDT Narrative [facility] - 06/12/2022 8:43 AM CDT Check aPTT 6 hours after the start of Heparin infusion and 6 hours after any change in Heparin rate. (Target aPTT 61-80 seconds). Call Nephrology if outside range. Catherine Adams MD LAB BLOOD ORDERABLES Final Result Performing Organization Address [facility] Co de Phone Number [facility] Department [place] [address] * (ABNORMAL) Blood gas, arterial (06/12/2022 8:02 AM CDT) Pathologist [facility] pH, Art 7.47(H) 7.35 - 7.45 [facility] PCO2, Arterial 34(L) 35 - 45 mmHg [facility] PO2, Arterial 71(L) 83 - 108 mmHg [facility] HCO3 Art (Calculated) 25 20 - 30 mmol/L [facility] BE, art 1 mmol/L [facility] Comment: Interpretive Data No Reference Range Established Current Interpretive Data was last revised on 2017 O2 Sat Art (Measured) 95 90 - 95 % [facility] Blood 06/12/2022 8:02 AM CDT 06/12/2022 8:13 AM CDT Marcelina Lo CHIEF AIRLINE RADIO OPERATOR LAB BLOOD ORDERABLES Final Re sult Performing Organization Address [facility]/ZIP Co de Phone Number [facility] [place] [address] * Magnesium (06/12/2022 8:02 AM CDT) [facility] Magnesium 2.5 1.4 - 2.5 mg/dL [facility] Blood 06/12/2022 8:02 AM CDT 06/12/2022 8:28 AM CDT Marcelina Lo CHIEF AIRLINE RADIO OPERATOR LAB BLOOD ORDERABLES Final Re sult Performing Organization Address City/[facility]/ZIP Co de Phone Number [facility] Department [place] [address] * (ABNORMAL) Comprehensive metabolic panel (06/12/2022 8:02 AM CDT) [facility] Sodium 135 135 - 145 mmol/L [facility] Potassium, pl 4.4 3.3 - 4.9 mmol/L [facility] Chloride 101 97 - 110 mmol/L [facility] CO2 26 22 - 32 mmol/L [facility] Anion gap 8 2 - 15 mmol/L [facility] BUN 23 8 - 25 mg/dL [facility] Creatinine 2.45(H) 0.80 - 1.30 mg/dL [facility] Glucose 157 70 - 199 mg/dL [facility] Comment: Interpretive Data Fasting glucose >/= [...] classification and Diagnosis of Diabetes Diabetes Care 2017;40 (Suppl. 1):S11. Current interpretive data was last revised 2017. Calcium 8.4(L) 8.5 - 10.3 mg/dL [facility] Bilirubin, total 0.7 0.1 - 1.2 mg/dL [facility] Protein, pl 5.8(L) 6.5 - 8.5 g/dL [facility] Albumin 2.6(L) 3.5 - 5.0 g/dL [facility] Alk phos 248(H) 40 - 130 Units/L [facility] ALT 49 7 - 55 Units/L [facility] AST 95(H) 10 - 50 Units/L [facility] Blood 06/12/2022 8:02 AM CDT 06/12/2022 8:28 AM CDT us Marcelina Lo CHIEF AIRLINE RADIO OPERATOR LAB BLOOD ORDERABLES Final Re sult [facility] Department [place] [address] * (ABNORMAL) CBC with auto differential (06/12/2022 8:02 AM CDT) Pathologist [facility] WBC 12.5(H) 3.8 - 9.9 K/cumm [facility] Hgb 7.5(L) 13.0 - 17.5 g/dL [facility] Hct 22.3(L) 38.9 - 50.3 % [facility] Plt 174 150 - 400 K/cumm [facility] MPV 11.0 9.1 - 12.3 fL [facility] RBC 2.36(L) 4.30 - 5.80 M/cumm [facility] MCV 94.5 81.3 - 96.4 fL [facility] MCH 31.8 27.1 - 33.3 pg [facility] MCHC 33.6 32.3 - 35.7 g/dL [facility] RDW CV 13.5 11.1 - 14.9 % [facility] RDW SD 45.5 35.7 - 48.1 fL [facility] NRBC abs 0.02(H) 0.00 - 0.01 K/cumm [facility] Blood 06/12/2022 8:02 AM CDT 06/12/2022 8:27 AM CDT us Marcelina Lo NP LAB BLOOD ORDERABLES Final Re sult Performing Organization Address City/[facility] Co de Phone Number [facility] Department [place] [address] * POCT glucose (06/12/2022 8:01 AM CDT) Glucose, POC 143 70 - 199 mg/dL [facility] Blood 06/12/2022 8:01 AM CDT 06/12/2022 8:01 AM CDT us Catherine Adams MD LAB POCT ORDERABLES - DEVIC E Final Result Performing Organization Address City/[facility]/ZIP Co de Phone Number [facility] Department [place] [address] * (ABNORMAL) Blood gas, arterial (06/12/2022 6:21 AM CDT) pH, Art 7.41 7.35 - 7.45 [facility] PCO2, Arterial 40 35 - 45 mmHg [facility] PO2, Arterial 86 83 - 108 mmHg [facility] HCO3 Art (Calculated) 26 20 - 30 mmol/L [facility] BE, art 1 mmol/L [facility] Comment: Interpretive Data No Reference Range Established Current Interpretive Data was last revised on 2017 O2 Sat Art (Measured) 96(H) 90 - 95 % [facility] Blood 06/12/2022 6:21 AM CDT 06/12/2022 6:29 AM CDT us Catherine Adams MD LAB BLOOD ORDERABLES Final Result Performing Organization Address City/[facility] Co de Phone Number [facility] [place] [address] * POCT glucose (06/12/2022 4:57 AM CDT) Glucose, POC 163 70 - 199 mg/dL [facility] Blood 06/12/2022 4:57 AM CDT 06/12/2022 4:57 AM CDT Catherine Adams MD LAB POCT ORDERABLES - DEVIC E Final Result Performing Organization Address [facility] de Phone Number [facility] [place] [address] * (ABNORMAL) aPTT (06/12/2022 1:52 AM CDT) aPTT 52(H) 27 - 37 sec [facility] Comment: Interpretive Data Therapeutic heparin range: 60.0 - 94.0 seconds. Based on correlation with therapeutic heparin activity range of 0.3-0.7 Units/mL. Current interpretive data was last revised on 2020. Blood 06/12/2022 1:52 AM CDT 06/12/2022 2:15 AM CDT Narrative [facility] - 06/12/2022 2:39 AM CDT Check aPTT 6 hours after the start of Heparin infusion and 6 hours after any change in Heparin rate. (Target aPTT 61-80 seconds). Call Nephrology if outside range. us Catherine Adams MD LAB BLOOD ORDERABLES Final Result [facility] [place] [address] * (ABNORMAL) POCT glucose (06/11/2022 11:32 PM CDT) [facility] Glucose, POC 206(H) 70 - 199 mg/dL [facility] Blood 06/11/2022 11:3 2 PM CDT 06/11/2022 11:32 PM CDT Catherine Adams MD LAB POCT ORDERABLES - DEVIC E Final Result Performing Organization Address City/[facility] Co de Phone Number [facility] [place] [address] * (ABNORMAL) Manual Differential (06/11/2022 11:25 PM CDT) [facility] Differential Manual [facility] Cells Counted 119 [facility] Neutrophil abs 10.8(H) 1.7 - 6.5 K/cumm [facility] Imm gran abs 0.6(H) 0.0 - 0.1 K/cumm [facility] Lymphocyte abs 1.4 0.8 - 3.3 K/cumm [facility] Monocyte abs 0.6 0.2 - 0.8 K/cumm [facility] Eosinophil abs 0.2 0.0 - 0.5 K/cumm [facility] Neutrophil pct 79.9 % [facility] Comment: Interpretive Data Percent cell count reference ranges are not reported, since discordance with absolute values may lead to misinterpretation of CBC data. Current Interpretive Data was last revised on 2017. Lymphocyte pct 10.1 % [facility] Comment: Interpretive Data Percent cell count reference ranges are not reported, since discordance with absolute values may lead to misinterpretation of CBC data. Current Interpretive Data was last revised on 2017. Monocyte pct 4.2 % [facility] Comment: Interpretive Data Percent cell count reference ranges are not reported, since discordance with absolute values may lead to misinterpretation of CBC data. Current Interpretive Data was last revised on 2017. Eosinophil pct 1.7 % [facility] Comment: Interpretive Data Percent cell count reference ranges are not reported, since discordance with absolute values may lead to misinterpretation of CBC data. Current Interpretive Data was last revised on 2017. Metamyelocyte pct 0.8 % [facility] Myelocyte pct 2.5 % [facility] Promyelocyte pct 0.8 % [facility] Blood 06/11/2022 11:2 5 PM CDT 06/11/2022 11:39 PM CDT us Jeffrey Green MD LAB BLOOD ORDERABLES Final Result [facility] Department [place] [address] * (ABNORMAL) CBC with auto differential (06/11/2022 11:25 PM CDT) WBC 13.5(H) 3.8 - 9.9 K/cumm [facility] Hgb 7.9(L) 13.0 - 17.5 g/dL [facility] Hct 23.7(L) 38.9 - 50.3 % [facility] Plt 188 150 - 400 K/cumm [facility] MPV 10.7 9.1 - 12.3 fL [facility] RBC 2.55(L) 4.30 - 5.80 M/cumm [facility] MCV 92.9 81.3 - 96.4 fL [facility] MCH 31.0 27.1 - 33.3 pg [facility] MCHC 33.3 32.3 - 35.7 g/dL [facility] RDW CV 13.3 11.1 - 14.9 % [facility] RDW SD 45.1 35.7 - 48.1 fL [facility] NRBC abs 0.02(H) 0.00 - 0.01 K/cumm [facility] Blood 06/11/2022 11:2 5 PM CDT 06/11/2022 11:35 PM CDT us Jeffrey Green MD LAB BLOOD ORDERABLES Final Result Performing Organization Address [facility] Co de Phone Number [facility] Department [place] [address] * (ABNORMAL) Blood gas, arterial (06/11/2022 11:25 PM CDT) pH, Art 7.37 7.35 - 7.45 [facility] PCO2, Arterial 41 35 - 45 mmHg [facility] PO2, Arterial 91 83 - 108 mmHg [facility] HCO3 Art (Calculated) 24 20 - 30 mmol/L [facility] BE, art -1 mmol/L [facility] Comment: Interpretive Data No Reference Range Established Current Interpretive Data was last revised on 2017 O2 Sat Art (Measured) 97(H) 90 - 95 % [facility] Blood 06/11/2022 11:2 5 PM CDT 06/11/2022 11:31 PM CDT us Marcelina Lo NP LAB BLOOD ORDERABLES Final Re sult Performing Organization Address [facility] Co de Phone Number [facility] Department [place] [address] * (ABNORMAL) Blood gas, arterial (06/11/2022 8:17 PM CDT) pH, Art 7.38 7.35 - 7.45 [facility] PCO2, Arterial 39 35 - 45 mmHg [facility] PO2, Arterial 111(H) 83 - 108 mmHg [facility] HCO3 Art (Calculated) 23 20 - 30 mmol/L [facility] BE, art -2 mmol/L [facility] Comment: Interpretive Data No Reference Range Established Current Interpretive Data was last revised on 2017 O2 Sat Art (Measured) 98(H) 90 - 95 % [facility] Blood 06/11/2022 8:17 PM CDT 06/11/2022 8:23 PM CDT us Marcelina Lo CHIEF AIRLINE RADIO OPERATOR LAB BLOOD ORDERABLES Final Re sult Performing Organization Address City/[facility] Co de Phone Number [facility] [place] [address] * Lactate, whole blood (06/11/2022 8:17 PM CDT) Lactate, bld 0.8 0.7 - 2.0 mmol/L [facility] Blood 06/11/2022 8:17 PM CDT 06/11/2022 8:23 PM CDT Marcelina Lo CHIEF AIRLINE RADIO OPERATOR LAB BLOOD ORDERABLES Final Re sult Performing Organization Address [facility] de Phone Number [facility] [place] [address] * (ABNORMAL) eGFR (06/11/2022 8:12 PM CDT) Pathologist [facility] eGFR 24(L) 90 - 130 mL/min/1. 73 m2 [facility] Comment: Interpretive Data Reference Interval [...] interpretive data was last reviewed 2021. Blood 06/11/2022 8:12 PM CDT 06/11/2022 8:26 PM CDT Catherine Adams MD LAB BLOOD ORDERABLES Final Result [facility] [place] [address] * Magnesium (06/11/2022 8:12 PM CDT) Pathologist [facility] Magnesium 2.5 1.4 - 2.5 mg/dL [facility] Blood 06/11/2022 8:12 PM CDT 06/11/2022 8:23 PM CDT Catherine Adams MD LAB BLOOD ORDERABLES Final Result Performing Organization Address City/[facility]/ZIP Co de Phone Number [facility] [place] [address] * (ABNORMAL) Comprehensive metabolic panel (06/11/2022 8:12 PM CDT) Pathologist [facility] Sodium 135 135 - 145 mmol/L [facility] Potassium, pl 4.7 3.3 - 4.9 mmol/L [facility] Chloride 101 97 - 110 mmol/L [facility] CO2 23 22 - 32 mmol/L [facility] Anion gap 11 2 - 15 mmol/L [facility] BUN 28(H) 8 - 25 mg/dL [facility] Creatinine 3.01(H) 0.80 - 1.30 mg/dL [facility] Glucose 185 70 - 199 mg/dL [facility] Comment: Interpretive Data Fasting glucose >/= [...] classification and Diagnosis of Diabetes Diabetes Care 2017;40 (Suppl. 1):S11. Current interpretive data was last revised 2017. Calcium 8.1(L) 8.5 - 10.3 mg/dL [facility] Bilirubin, total 0.9 0.1 - 1.2 mg/dL [facility] Protein, pl 5.5(L) 6.5 - 8.5 g/dL [facility] Albumin 2.3(L) 3.5 - 5.0 g/dL [facility] Alk phos 211(H) 40 - 130 Units/L [facility] ALT 45 7 - 55 Units/L [facility] AST 95(H) 10 - 50 Units/L [facility] Blood 06/11/2022 8:12 PM CDT 06/11/2022 8:23 PM CDT Catherine Adams MD LAB BLOOD ORDERABLES Final Result [facility] Department [place] [address] * (ABNORMAL) Triglycerides (06/11/2022 8:12 PM CDT) Pathologist [facility] Triglycerides 345(H) <=149 mg/dL [facility] Comment: Interpretive Data Ages < or [...] Interpretive Data was last revised on 2018. Blood 06/11/2022 8:12 PM CDT 06/11/2022 8:23 PM CDT Narrative [facility] - 06/11/2022 8:53 PM CDT While on propofol infusion. us Catherine Adams MD LAB BLOOD ORDERABLES Final Result Performing Organization Address [facility] Co de Phone Number [facility] Department [place] [address] * Phosphorus (06/11/2022 8:12 PM CDT) Phosphorus, pl 4.4 2.3 - 4.5 mg/dL [facility] Blood 06/11/2022 8:12 PM CDT 06/11/2022 8:23 PM CDT us Marcelina Lo NP LAB BLOOD ORDERABLES Final Re sult Performing Organization Address [facility]/ZIP Co de Phone Number [facility] Department [place] [address] * Beta-hydroxybutyrate (06/11/2022 8:12 PM CDT) Beta-Hydroxybut yrate 0.3 0.0 - 0.5 mmol/L [facility] Blood 06/11/2022 8:12 PM CDT 06/11/2022 8:23 PM CDT Marcelina Lo CHIEF AIRLINE RADIO OPERATOR LAB BLOOD ORDERABLES Edited R esult - Final Performing Organization Address [facility] Co de Phone Number [facility] [place] [address] * Lipase (06/11/2022 8:12 PM CDT) Lipase 15 10 - 99 Units/L [facility] Blood 06/11/2022 8:12 PM CDT 06/11/2022 8:23 PM CDT Marcelina Lo CHIEF AIRLINE RADIO OPERATOR LAB BLOOD ORDERABLES Final Re sult Performing Organization Address [facility] de Phone Number [facility] [place] [address] * POCT glucose (06/11/2022 8:07 PM CDT) Glucose, POC 169 70 - 199 mg/dL [facility] Blood 06/11/2022 8:07 PM CDT 06/11/2022 8:07 PM CDT Catherine Adams MD LAB POCT ORDERABLES - DEVIC E Final Result Performing Organization Address [facility] de Phone Number [facility] [place] [address] * XR Chest 1 View (06/11/2022 4:07 PM CDT) Anatomical Region Laterality Modality Body, Chest N/A Computed Radiogr aphy 06/11/2022 5:24 PM CDT Impressions 06/11/2022 5:24 PM CDT Comparison made to examination of 06/11/2022 at 0543 hours Tip of the endotracheal tube projects approximately 5.5 cm above the boni. ??Nasogastric tube extends below the diaphragm with the tip excluded from the [id number]-[id number]. ??Left internal jugular catheter projects at superior vena cava. Small bilateral pleural effusions and bibasilar atelectasis are stable. ??There is trace pulmonary edema, decreased from the prior examination. ??No pneumothorax is seen. Heart size and mediastinal contours unchanged. Electronically signed by: Hellen Schaffer M.D. Narrative 06/11/2022 5:24 PM CDT EXAMINATION: 1 view chest radiograph Procedure Note Hellen Schaffer MD - 06/11/2022 EXAMINATION: 1 view chest radiograph IMPRESSION: Comparison made to examination of 06/11/2022 at 0543 hours Tip of the endotracheal tube projects approximately 5.5 cm above the boni. Nasogastric tube extends below the diaphragm with the tip excluded from the [id number]-vm-hrys. Left internal jugular catheter projects at superior vena cava. Small bilateral pleural effusions and bibasilar atelectasis are stable. There is trace pulmonary edema, decreased from the prior examination. No pneumothorax is seen. Heart size and mediastinal contours unchanged. Electronically signed by: Hellen Schaffer M.D. Catherine Adams MD IMG XR PROCEDURES Final Res ult * Potassium, whole blood (06/11/2022 3:21 PM CDT) Potassium, bld 4.5 3.3 - 4.9 mmol/L [facility] Blood 06/11/2022 3:21 PM CDT 06/11/2022 3:29 PM CDT Marcelina Lo NP LAB BLOOD ORDERABLES Final Re sult [facility] Department [place] [address] * Lactate, whole blood (06/11/2022 3:21 PM CDT) Lactate, bld 0.9 0.7 - 2.0 mmol/L [facility] Blood 06/11/2022 3:21 PM CDT 06/11/2022 3:29 PM CDT Marcelina Lo CHIEF AIRLINE RADIO OPERATOR LAB BLOOD ORDERABLES Final Re sult Performing Organization Address [facility] de Phone Number [facility] Department [place] [id number] * (ABNORMAL) Blood gas, arterial (06/11/2022 3:21 PM CDT) pH, Art 7.39 7.35 - 7.45 [facility] PCO2, Arterial 39 35 - 45 mmHg [facility] PO2, Arterial 92 83 - 108 mmHg [facility] HCO3 Art (Calculated) 24 20 - 30 mmol/L [facility] BE, art -1 mmol/L [facility] Comment: Interpretive Data No Reference Range Established Current Interpretive Data was last revised on 2017 O2 Sat Art (Measured) 96(H) 90 - 95 % [facility] Blood 06/11/2022 3:21 PM CDT 06/11/2022 3:29 PM CDT Marcelina Lo CHIEF AIRLINE RADIO OPERATOR LAB BLOOD ORDERABLES Final Re sult Performing Organization Address [facility] de Phone Number [facility] Department [place] [address] * aPTT (06/11/2022 3:21 PM CDT) Pathologist [facility] aPTT 30 27 - 37 sec [facility] Comment: Interpretive Data Therapeutic heparin range: 60.0 - 94.0 seconds. Based on correlation with therapeutic heparin activity range of 0.3-0.7 Units/mL. Current interpretive data was last revised on 2020. Blood 06/11/2022 3:21 PM CDT 06/11/2022 3:30 PM CDT Catherine Adams MD LAB BLOOD ORDERABLES Final Result Performing Organization Address City/[facility]/ZIP Co de Phone Number [facility] Department [place] [address] * Protime-INR (06/11/2022 3:21 PM CDT) [facility] PT 10.7 9.2 - 13.5 sec [facility] INR 1.0 0.9 - 1.2 [facility] Comment: Interpretive data Oral anticoagulant therapeutic ranges: Venous thromboembolism prophylaxis or treatment: 2.0-3.0 CARDIOLOGY Standard range: 2.0-3.0 High-intensity range: 2.5-3.5 Refer to indication-specific guidelines for appropriate target ranges for prosthetic heart valve replacement. Current interpretive data was last revised on 2019. Blood 06/11/2022 3:21 PM CDT 06/11/2022 3:30 PM CDT Catherine Adams MD LAB BLOOD ORDERABLES Final Result Performing Organization Address [facility] de Phone Number [facility] Department [place] [address] * (ABNORMAL) CBC without differential (06/11/2022 3:21 PM CDT) [facility] WBC 10.7(H) 3.8 - 9.9 K/cumm [facility] Hgb 7.6(L) 13.0 - 17.5 g/dL [facility] Hct 22.8(L) 38.9 - 50.3 % [facility] Plt 175 150 - 400 K/cumm [facility] MPV 10.7 9.1 - 12.3 fL [facility] RBC 2.45(L) 4.30 - 5.80 M/cumm [facility] MCV 93.1 81.3 - 96.4 fL [facility] MCH 31.0 27.1 - 33.3 pg [facility] MCHC 33.3 32.3 - 35.7 g/dL [facility] RDW CV 13.1 11.1 - 14.9 % [facility] RDW SD 44.3 35.7 - 48.1 fL [facility] NRBC abs 0.02(H) 0.00 - 0.01 K/cumm [facility] Blood 06/11/2022 3:21 PM CDT 06/11/2022 3:30 PM CDT Catherine Adams MD LAB BLOOD ORDERABLES Final Result Performing Organization Address [facility]/ZIP Co de Phone Number [facility] Department [place] [address] * POCT glucose (06/11/2022 3:20 PM CDT) [facility] Signature Glucose, POC 130 70 - 199 mg/dL [facility] Blood 06/11/2022 3:20 PM CDT 06/11/2022 3:20 PM CDT Catherine Adams MD LAB POCT ORDERABLES - DEVIC E Final Result Performing Organization Address [facility] de Phone Number [facility] Department [place] [address] * CT Chest Abdomen Pelvis WO Contrast (06/11/2022 2:32 PM CDT) Anatomical Region Laterality Modality Body N/A Computed Tomogra phy 06/11/2022 3:50 PM CDT Impressions 06/11/2022 6:[address] explanation for the patient's anemia. 2. ??Mild pulmonary edema with biapical groundglass and possible tree-in-bud opacities which can be related to edema and/or aspiration. Progressive bibasilar airspace opacities that are favored to be predominantly atelectasis/aspiration due to volume loss, though evaluation for pneumonia is limited on this noncontrast examination. 3. Mildly dilated gallbladder with cholelithiasis, likely related to fasting state. No radiologic signs of cholecystitis. 4. Interval improvement of soft tissue thickening around the umbilicus which is atypical but can be seen in cellulitis, recommend correlation with physical exam. 5. Partially visualized asymmetric right anterior neck muscles might be related to positioning versus a small infiltrative hematoma. Dictated by: Charly Monsalve MD The radiology attending physician has personally reviewed this study, and had reviewed and/or edited this written report and agrees with it. Electronically signed by: Maria Teresa Rivera M.D. Narrative 06/11/2022 6:19 PM CDT EXAMINATION: ??Computed tomography of the chest, abdomen and pelvis without intravenous contrast HISTORY: 51-year-old with congestive heart failure, atrial fibrillation, coronary artery disease presenting with cardiogenic shock status post complex PCI and impella. Acute anemia to 7.8 hemoglobin, concern for retroperitoneal hematoma and cholecystitis TECHNIQUE: ??Transaxial computed tomographic images of the chest, abdomen and pelvis were obtained without intravenous contrast according to the standard protocol. COMPARISON: 06/12/2022 FINDINGS: ?? Chest: Imaged thyroid is heterogeneous with no dominant nodules. No thoracic lymphadenopathy. Mildly prominent mediastinal lymph nodes are favored to be reactive. Debris is seen within the trachea. There is respiratory motion at the lung bases. Heart size is mildly enlarged, stable. ??Hypodense blood relative to myocardium, consistent with anemia. ??Thoracic aorta and main pulmonary artery are normal in caliber. Vascular calcifications/stents are seen within the coronary arteries. Aortic calcifications are seen. No pleural effusion or pneumothorax. Bibasilar areas of airspace opacities with volume loss favored to be atelectasis, though this is increased in severity from 06/02/2022. Patchy areas of groundglass with possible tree-in-bud opacities are seen within the bilateral upper lobes, greater on the left, suboptimally evaluated due to motion artifacts. There is mild pulmonary edema. No suspicious pulmonary nodule. Abdomen/Pelvis: No focal hepatic lesion. Vicarious excretion of contrast within the gallbladder likely from prior coronary catheterization. Gallstones are seen within the gallbladder neck. No evidence of gallbladder wall thickening or pericholecystic fluid. No evidence of perforation. No biliary ductal dilatation. Spleen is normal. Pancreas is normal. Adrenals are normal. Kidneys are atrophic. Urinary bladder is decompressed with a Nguyen catheter. Prostate is present. Nasogastric tube terminates in the gastric antrum. There is no evidence of bowel wall thickening or obstruction. No abdominal or pelvic lymphadenopathy. No evidence of retroperitoneal hematoma. No free fluid or pneumoperitoneum. Abdominal aorta is normal in caliber with moderate atherosclerotic disease. Stranding is seen in the right groin likely from prior vascular access site. There is a prominent umbilicus with improving mild surrounding stranding and soft tissue thickening, slightly less prominent from 06/02/2022. There is a peritoneal dialysis catheter present that terminates in the upper quadrant. Degenerative changes within the spine. No suspicious solid osseous lesion. Schmorl's nodes are seen at the inferior plate of T6 and L4 and L5. Partially visualized are asymmetric right anterior neck muscles. Procedure Note Maria Teresa Rivera MD - 06/11/2022 EXAMINATION: Computed tomography of the chest, abdomen and pelvis without intravenous contrast HISTORY: 51-year-old with congestive heart failure, atrial fibrillation, coronary artery disease presenting with cardiogenic shock status post complex PCI and impella. Acute anemia to 7.8 hemoglobin, concern for retroperitoneal hematoma and cholecystitis TECHNIQUE: Transaxial computed tomographic images of the chest, abdomen and pelvis were obtained without intravenous contrast according to the standard protocol. COMPARISON: 06/12/2022 FINDINGS: Chest: Imaged thyroid is heterogeneous with no dominant nodules. No thoracic lymphadenopathy. Mildly prominent mediastinal lymph nodes are favored to be reactive. Debris is seen within the trachea. There is respiratory motion at the lung bases. Heart size is mildly enlarged, stable. Hypodense blood relative to myocardium, consistent with anemia. Thoracic aorta and main pulmonary artery are normal in caliber. Vascular calcifications/stents are seen within the coronary arteries. Aortic calcifications are seen. No pleural effusion or pneumothorax. Bibasilar areas of airspace opacities with volume loss favored to be atelectasis, though this is increased in severity from 06/02/2022. Patchy areas of groundglass with possible tree-in-bud opacities are seen within the bilateral upper lobes, greater on the left, suboptimally evaluated due to motion artifacts. There is mild pulmonary edema. No suspicious pulmonary nodule. Abdomen/Pelvis: No focal hepatic lesion. Vicarious excretion of contrast within the gallbladder likely from prior coronary catheterization. Gallstones are seen within the gallbladder neck. No evidence of gallbladder wall thickening or pericholecystic fluid. No evidence of perforation. No biliary ductal dilatation. Spleen is normal. Pancreas is normal. Adrenals are normal. Kidneys are atrophic. Urinary bladder is decompressed with a Nguyen catheter. Prostate is present. Nasogastric tube terminates in the gastric antrum. There is no evidence of bowel wall thickening or obstruction. No abdominal or pelvic lymphadenopathy. No evidence of retroperitoneal hematoma. No free fluid or pneumoperitoneum. Abdominal aorta is normal in caliber with moderate atherosclerotic disease. Stranding is seen in the right groin likely from prior vascular access site. There is a prominent umbilicus with improving mild surrounding stranding and soft tissue thickening, slightly less prominent from 06/02/2022. There is a peritoneal dialysis catheter present that terminates in the upper quadrant. Degenerative changes within the spine. No suspicious solid osseous lesion. Schmorl's nodes are seen at the inferior plate of T6 and L4 and L5. Partially visualized are asymmetric right anterior neck muscles. IMPRESSION: 1. No CT explanation for the patient's anemia. 2. Mild pulmonary edema with biapical groundglass and possible tree-in-bud opacities which can be related to edema and/or aspiration. Progressive bibasilar airspace opacities that are favored to be predominantly atelectasis/aspiration due to volume loss, though evaluation for pneumonia is limited on this noncontrast examination. 3. Mildly dilated gallbladder with cholelithiasis, likely related to fasting state. No radiologic signs of cholecystitis. 4. Interval improvement of soft tissue thickening around the umbilicus which is atypical but can be seen in cellulitis, recommend correlation with physical exam. 5. Partially visualized asymmetric right anterior neck muscles might be related to positioning versus a small infiltrative hematoma. Dictated by: Charly Monsalve MD The radiology attending physician has personally reviewed this study, and had reviewed and/or edited this written report and agrees with it. Electronically signed by: Maria Teresa Rivera M.D. us Catherine Adams MD IM CT PROCEDURES Final Res ult * (ABNORMAL) Blood gas, arterial (06/11/2022 12:11 PM CDT) pH, Art 7.38 7.35 - 7.45 [facility] PCO2, Arterial 37 35 - 45 mmHg [facility] PO2, Arterial 139(H) 83 - 108 mmHg [facility] HCO3 Art (Calculated) 22 20 - 30 mmol/L [facility] BE, art -3 mmol/L [facility] Comment: Interpretive Data No Reference Range Established Current Interpretive Data was last revised on 2017 O2 Sat Art (Measured) 98(H) 90 - 95 % [facility] Blood 06/11/2022 12:1 1 PM CDT 06/11/2022 12:23 PM CDT Catherine Adams MD LAB BLOOD ORDERABLES Final Result Performing Organization Address City/[facility] Co de Phone Number [facility] Department [place] [address] * POCT glucose (06/11/2022 12:10 PM CDT) [facility] Glucose, POC 142 70 - 199 mg/dL [facility] Blood 06/11/2022 12:1 0 PM CDT 06/11/2022 12:10 PM CDT Catherine Adams MD LAB POCT ORDERABLES - DEVIC E Final Result Performing Organization Address [facility] de Phone Number [facility] Department [place] [address] * (ABNORMAL) Manual Differential (06/11/2022 8:48 AM CDT) [facility] Differential Manual [facility] Cells Counted 120 [facility] Neutrophil abs 7.3(H) 1.7 - 6.5 K/cumm [facility] Imm gran abs 1.0(H) 0.0 - 0.1 K/cumm [facility] Lymphocyte abs 1.4 0.8 - 3.3 K/cumm [facility] Monocyte abs 0.4 0.2 - 0.8 K/cumm [facility] Eosinophil abs 0.3 0.0 - 0.5 K/cumm [facility] Neutrophil pct 70.0 % [facility] Comment: Interpretive Data Percent cell count reference ranges are not reported, since discordance with absolute values may lead to misinterpretation of CBC data. Current Interpretive Data was last revised on 2017. Lymphocyte pct 13.3 % [facility] Comment: Interpretive Data Percent cell count reference ranges are not reported, since discordance with absolute values may lead to misinterpretation of CBC data. Current Interpretive Data was last revised on 2017. Monocyte pct 4.2 % [facility] Comment: Interpretive Data Percent cell count reference ranges are not reported, since discordance with absolute values may lead to misinterpretation of CBC data. Current Interpretive Data was last revised on 2017. Eosinophil pct 3.3 % [facility] Comment: Interpretive Data Percent cell count reference ranges are not reported, since discordance with absolute values may lead to misinterpretation of CBC data. Current Interpretive Data was last revised on 2017. Metamyelocyte pct 6.7 % [facility] Myelocyte pct 2.5 % [facility] Blood 06/11/2022 8:48 AM CDT 06/11/2022 9:14 AM CDT us Catherine Adams MD LAB BLOOD ORDERABLES Final Result [facility] Department [place] [address] * (ABNORMAL) eGFR (06/11/2022 8:48 AM CDT) eGFR 30(L) 90 - 130 mL/min/1. 73 m2 [facility] Comment: Interpretive Data Reference Interval Normal [...] interpretive data was last reviewed 2021. Blood 06/11/2022 8:48 AM CDT 06/11/2022 9:11 AM CDT Catherine Adams MD LAB BLOOD ORDERABLES Final Result Performing Organization Address [facility]/ZIP Co de Phone Number [facility] Department [place] [address] * Lactate, whole blood (06/11/2022 8:48 AM CDT) Lactate, bld 1.1 0.7 - 2.0 mmol/L [facility] Blood 06/11/2022 8:48 AM CDT 06/11/2022 8:55 AM CDT Marcelina Lo NP LAB BLOOD ORDERABLES Final Re sult [facility] [place] [address] * Magnesium (06/11/2022 8:48 AM CDT) Magnesium 2.5 1.4 - 2.5 mg/dL [facility] Blood 06/11/2022 8:48 AM CDT 06/11/2022 9:02 AM CDT us Marcelina Lo CHIEF AIRLINE RADIO OPERATOR LAB BLOOD ORDERABLES Final Re sult [facility] Department [place] [address] * (ABNORMAL) Comprehensive metabolic panel (06/11/2022 8:48 AM CDT) Sodium 134(L) 135 - 145 mmol/L [facility] Potassium, pl 4.8 3.3 - 4.9 mmol/L [facility] Chloride 100 97 - 110 mmol/L [facility] CO2 23 22 - 32 mmol/L [facility] Anion gap 11 2 - 15 mmol/L [facility] BUN 22 8 - 25 mg/dL [facility] Creatinine 2.53(H) 0.80 - 1.30 mg/dL [facility] Glucose 175 70 - 199 mg/dL [facility] Comment: Interpretive Data Fasting glucose >/= [...] classification and Diagnosis of Diabetes Diabetes Care 2017;40 (Suppl. 1):S11. Current interpretive data was last revised 2017. Calcium 8.4(L) 8.5 - 10.3 mg/dL [facility] Bilirubin, total 0.9 0.1 - 1.2 mg/dL [facility] Protein, pl 6.0(L) 6.5 - 8.5 g/dL [facility] Albumin 2.8(L) 3.5 - 5.0 g/dL [facility] Alk phos 200(H) 40 - 130 Units/L [facility] ALT 47 7 - 55 Units/L [facility] AST 100(H) 10 - 50 Units/L [facility] Blood 06/11/2022 8:48 AM CDT 06/11/2022 9:02 AM CDT us Marcelina Lo CHIEF AIRLINE RADIO OPERATOR LAB BLOOD ORDERABLES Final Re sult Performing Organization Address [facility] Co de Phone Number [facility] [place] [address] * (ABNORMAL) CBC with auto differential (06/11/2022 8:48 AM CDT) WBC 10.4(H) 3.8 - 9.9 K/cumm [facility] Hgb 7.8(L) 13.0 - 17.5 g/dL [facility] Hct 23.4(L) 38.9 - 50.3 % [facility] Plt 191 150 - 400 K/cumm [facility] MPV 10.7 9.1 - 12.3 fL [facility] RBC 2.49(L) 4.30 - 5.80 M/cumm [facility] MCV 94.0 81.3 - 96.4 fL [facility] MCH 31.3 27.1 - 33.3 pg [facility] MCHC 33.3 32.3 - 35.7 g/dL [facility] RDW CV 13.2 11.1 - 14.9 % [facility] RDW SD 45.3 35.7 - 48.1 fL [facility] NRBC abs 0.03(H) 0.00 - 0.01 K/cumm [facility] Blood 06/11/2022 8:48 AM CDT 06/11/2022 9:02 AM CDT Marcelina Lo CHIEF AIRLINE RADIO OPERATOR LAB BLOOD ORDERABLES Final Re sult [facility] Department [place] [address] * POCT glucose (06/11/2022 8:46 AM CDT) Glucose, POC 169 70 - 199 mg/dL [facility] Blood 06/11/2022 8:46 AM CDT 06/11/2022 8:46 AM CDT Catherine Adams MD LAB POCT ORDERABLES - DEVIC E Final Result Performing Organization Address [facility] de Phone Number [facility] [place] [address] * (ABNORMAL) Blood gas, arterial (06/11/2022 6:34 AM CDT) pH, Art 7.43 7.35 - 7.45 [facility] PCO2, Arterial 34(L) 35 - 45 mmHg [facility] PO2, Arterial 87 83 - 108 mmHg [facility] HCO3 Art (Calculated) 24 20 - 30 mmol/L [facility] BE, art -1 mmol/L [facility] Comment: Interpretive Data No Reference Range Established Current Interpretive Data was last revised on 2017 O2 Sat Art (Measured) 97(H) 90 - 95 % [facility] Blood 06/11/2022 6:34 AM CDT 06/11/2022 6:44 AM CDT Catherine Adams MD LAB BLOOD ORDERABLES Final Result Performing Organization Address [facility] de Phone Number [facility] Department [place] [address] * XR Chest 1 View (06/11/2022 5:48 AM CDT) Anatomical Region Laterality Modality Body, Chest N/A Computed Radiogr aphy 06/11/2022 7:13 AM CDT Impressions 06/11/2022 7:13 AM CDT Comparison is made with prior examination from 06/10/2022. In the interval, the Impala type device has been removed. Central venous dialysis type catheter projects over the superior vena cava. There is been no interval change in the coarse diffuse reticular nodule interstitial opacities compatible with pulmonary edema. The posterior layering pleural effusion stable. No pneumothorax seen. Nasogastric tube projects below the hemidiaphragm. Endotracheal tube is tip 5 cm above the boni. Electronically signed by: Kip Morales M.D., MPH Narrative 06/11/2022 7:13 AM CDT EXAMINATION: 1 view chest radiograph Procedure Note Kip Morales MD - 06/11/2022 EXAMINATION: 1 view chest radiograph IMPRESSION: Comparison is made with prior examination from 06/10/2022. In the interval, the Impala type device has been removed. Central venous dialysis type catheter projects over the superior vena cava. There is been no interval change in the coarse diffuse reticular nodule interstitial opacities compatible with pulmonary edema. The posterior layering pleural effusion stable. No pneumothorax seen. Nasogastric tube projects below the hemidiaphragm. Endotracheal tube is tip 5 cm above the boni. Electronically signed by: Kip Morales M.D., MPH us Catherine Adams MD IMG XR PROCEDURES Final Res ult * (ABNORMAL) Blood gas, arterial (06/11/2022 3:31 AM CDT) Pathologist [facility] pH, Art 7.42 7.35 - 7.45 [facility] PCO2, Arterial 36 35 - 45 mmHg [facility] PO2, Arterial 115(H) 83 - 108 mmHg [facility] HCO3 Art (Calculated) 24 20 - 30 mmol/L [facility] BE, art -1 mmol/L [facility] Comment: Interpretive Data No Reference Range Established Current Interpretive Data was last revised on 2017 O2 Sat Art (Measured) 98(H) 90 - 95 % [facility] Blood 06/11/2022 3:31 AM CDT 06/11/2022 4:00 AM CDT us Marcelina Lo CHIEF AIRLINE RADIO OPERATOR LAB BLOOD ORDERABLES Final Re sult [facility] One [facility] [place] [address] * Lactate, whole blood (06/11/2022 3:31 AM CDT) Pathologist [facility] Lactate, bld 1.1 0.7 - 2.0 mmol/L [facility] Blood 06/11/2022 3:31 AM CDT 06/11/2022 4:00 AM CDT us Marcelina Lo NP LAB BLOOD ORDERABLES Final Re sult Performing Organization Address City/[facility]/ZIP Co de Phone Number [facility] Department [place] [address] * POCT glucose (06/11/2022 3:28 AM CDT) Glucose, POC 155 70 - 199 mg/dL [facility] Blood 06/11/2022 3:28 AM CDT 06/11/2022 3:28 AM CDT Catherine Adams MD LAB POCT ORDERABLES - DEVIC E Final Result Performing Organization Address [facility] Co de Phone Number [facility] Department [place] [address] * Blood culture Blood Antecubital, right (06/11/2022 1:03 AM CDT) Report Final Report: No growth [facility] Blood (Antecubital, right) 06/11/2022 1:03 AM CDT 06/11/2022 9:01 AM CDT Narrative [facility] - 06/15/2022 12:00 PM CDT 1. ?Blood cultures are incubated for 4 days on a continuously monitored blood culture system. The first report of a negative culture is issued within 24 hours of receipt of the specimen in the laboratory. 2. ?Positive culture results are reported as soon as they are detected. 3. ?The most important factor for detection of microbes in the setting of bloodstream infection is the volume of blood submitted for culture. Failure to collect an optimal blood volume can result in false negative blood cultures. For pediatric patients, the recommended blood volume to collect is 1 mL of blood per year of patient age (up to 20 mL) per blood culture set. For adult patients, 20 mL of blood, divided equally between aerobic and anaerobic blood culture bottles, is recommended for each blood culture set. 4. ?For blood cultures with Gram-positive cocci, a rapid molecular test for organism identification may be performed using the [employer] Gram-Positive Blood Culture Assay. This assay detects microbial DNA in positive blood culture broth via hybridization of target DNA to capture oligonucleotides on a microarray. This assay has been cleared by the [place] Food and Drug Administration and its performance characteristics have been verified by the [facility]. 5. ?For questions about this culture, contact the Microbiology Laboratory at [phone]. Interpretive data was last revised on 2020. Catherine Adams MD LAB MICROBIOLOGY - GENERAL ORDERABLES Final Result ALESSANDRA CARRION [facility] Department [place] [address] * Blood culture Blood Antecubital, left (06/11/2022 1:03 AM CDT) Report Final Report: No growth ALESSANDRA AVILA Blood (Antecubital, left) 06/11/2022 1:03 AM CDT 06/11/2022 9:01 AM CDT Narrative ALESSANDRA CARRION - 06/15/2022 12:00 PM CDT 1. ?Blood cultures are incubated for 4 days on a continuously monitored blood culture system. The first report of a negative culture is issued within 24 hours of receipt of the specimen in the laboratory. 2. ?Positive culture results are reported as soon as they are detected. 3. ?The most important factor for detection of microbes in the setting of bloodstream infection is the volume of blood submitted for culture. Failure to collect an optimal blood volume can result in false negative blood cultures. For pediatric patients, the recommended blood volume to collect is 1 mL of blood per year of patient age (up to 20 mL) per blood culture set. For adult patients, 20 mL of blood, divided equally between aerobic and anaerobic blood culture bottles, is recommended for each blood culture set. 4. ?For blood cultures with Gram-positive cocci, a rapid molecular test for organism identification may be performed using the [employer] Gram-Positive Blood Culture Assay. This assay detects microbial DNA in positive blood culture broth via hybridization of target DNA to capture oligonucleotides on a microarray. This assay has been cleared by the [place] Food and Drug Administration and its performance characteristics have been verified by the [facility]. 5. ?For questions about this culture, contact the Microbiology Laboratory at [phone]. Interpretive data was last revised on 2020. Catherine Adams MD LAB MICROBIOLOGY - GENERAL ORDERABLES Final Result Performing Organization Address City/[facility] Co de Phone Number [facility] Department [place] [address] * POCT glucose (06/11/2022 12:49 AM CDT) Glucose, POC 165 70 - 199 mg/dL [facility] Blood 06/11/2022 12:4 9 AM CDT 06/11/2022 12:49 AM CDT Catherine Adams MD LAB POCT ORDERABLES - DEVIC E Final Result Performing Organization Address [facility] Co de Phone Number [facility] Department [place] [address] * POCT glucose (06/10/2022 10:28 PM CDT) Glucose, POC 163 70 - 199 mg/dL [facility] Blood 06/10/2022 10:2 8 PM CDT 06/10/2022 10:28 PM CDT Catherine Adams MD LAB POCT ORDERABLES - DEVIC E Final Result Performing Organization Address [facility] Co de Phone Number [facility] [place] [address] * (ABNORMAL) eGFR (06/10/2022 10:27 PM CDT) Pathologist [facility] eGFR 33(L) 90 - 130 mL/min/1. 73 m2 ALESSANDRA CARRION Comment: Interpretive Data Reference Interval Normal ?>/= [...] interpretive data was last reviewed 2021. Blood 06/10/2022 10:2 7 PM CDT 06/10/2022 10:58 PM CDT us Catherine Adams MD LAB BLOOD ORDERABLES Final Result RANDOLPHABRAHAN MURALI [facility] Department [place] [address] * (ABNORMAL) Manual Differential (06/10/2022 10:27 PM CDT) Pathologist [facility] Differential Manual [facility] Cells Counted 118 [facility]ABRAH[facility] Neutrophil abs 13.0(H) 1.7 - 6.5 K/cumm [facility] Imm gran abs 0.6(H) 0.0 - 0.1 K/cumm [facility] Lymphocyte abs 1.3 0.8 - 3.3 K/cumm [facility] Monocyte abs 1.5(H) 0.2 - 0.8 K/cumm [facility] Eosinophil abs 0.7(H) 0.0 - 0.5 K/cumm [facility] Basophil abs 0.1 0.0 - 0.1 K/cumm [facility] Neutrophil pct 75.6 % [facility] Comment: Interpretive Data Percent cell count reference ranges are not reported, since discordance with absolute values may lead to misinterpretation of CBC data. Current Interpretive Data was last revised on 2017. Lymphocyte pct 7.6 % [facility] Comment: Interpretive Data Percent cell count reference ranges are not reported, since discordance with absolute values may lead to misinterpretation of CBC data. Current Interpretive Data was last revised on 2017. Monocyte pct 8.5 % [facility] Comment: Interpretive Data Percent cell count reference ranges are not reported, since discordance with absolute values may lead to misinterpretation of CBC data. Current Interpretive Data was last revised on 2017. Eosinophil pct 4.2 % [facility] Comment: Interpretive Data Percent cell count reference ranges are not reported, since discordance with absolute values may lead to misinterpretation of CBC data. Current Interpretive Data was last revised on 2017. Basophil pct 0.8 % [facility] Comment: Interpretive Data Percent cell count reference ranges are not reported, since discordance with absolute values may lead to misinterpretation of CBC data. Current Interpretive Data was last revised on 2017. Metamyelocyte pct 1.7 % [facility] Myelocyte pct 0.8 % [facility] Promyelocyte pct 0.8 % [facility] Blood 06/10/2022 10:2 7 PM CDT 06/10/2022 10:44 PM CDT us Catherine Adams MD LAB BLOOD ORDERABLES Final Result [facility] Department [place] [address] * (ABNORMAL) Comprehensive metabolic panel (06/10/2022 10:27 PM CDT) Sodium 136 135 - 145 mmol/L [facility] Potassium, pl 4.9 3.3 - 4.9 mmol/L [facility] Chloride 99 97 - 110 mmol/L [facility] CO2 25 22 - 32 mmol/L [facility] Anion gap 12 2 - 15 mmol/L [facility] BUN 20 8 - 25 mg/dL [facility] Creatinine 2.33(H) 0.80 - 1.30 mg/dL [facility] Glucose 158 70 - 199 mg/dL [facility] Comment: Interpretive Data Fasting glucose >/= [...] classification and Diagnosis of Diabetes Diabetes Care 2017;40 (Suppl. 1):S11. Current interpretive data was last revised 2017. Calcium 8.6 8.5 - 10.3 mg/dL [facility] Bilirubin, total 1.0 0.1 - 1.2 mg/dL [facility] Protein, pl 6.2(L) 6.5 - 8.5 g/dL [facility] Albumin 3.1(L) 3.5 - 5.0 g/dL [facility] Alk phos 216(H) 40 - 130 Units/L [facility] ALT 49 7 - 55 Units/L [facility] AST 114(H) 10 - 50 Units/L [facility] Blood 06/10/2022 10:2 7 PM CDT 06/10/2022 10:37 PM CDT Catherine Adams MD LAB BLOOD ORDERABLES Final Result [facility] [place] [address] * Magnesium (06/10/2022 10:27 PM CDT) [facility] Magnesium 2.5 1.4 - 2.5 mg/dL [facility] Blood 06/10/2022 10:2 7 PM CDT 06/10/2022 10:37 PM CDT us Catherine Adams MD LAB BLOOD ORDERABLES Final Result Performing Organization Address [facility] Co de Phone Number [facility] [place] [address] * Lactate, whole blood (06/10/2022 10:27 PM CDT) [facility] Lactate, bld 1.1 0.7 - 2.0 mmol/L [facility] Blood 06/10/2022 10:2 7 PM CDT 06/10/2022 10:36 PM CDT us Marcelina Lo NP LAB BLOOD ORDERABLES Final Re sult Performing Organization Address [facility] Co de Phone Number [facility] Department [place] [address] * (ABNORMAL) Blood gas, arterial (06/10/2022 10:27 PM CDT) [facility] pH, Art 7.39 7.35 - 7.45 [facility] PCO2, Arterial 37 35 - 45 mmHg [facility] PO2, Arterial 98 83 - 108 mmHg [facility] HCO3 Art (Calculated) 23 20 - 30 mmol/L [facility] BE, art -2 mmol/L [facility] Comment: Interpretive Data No Reference Range Established Current Interpretive Data was last revised on 2017 O2 Sat Art (Measured) 97(H) 90 - 95 % [facility] Blood 06/10/2022 10:2 7 PM CDT 06/10/2022 10:36 PM CDT Marcelina Lo CHIEF [employer]LINE RADIO OPERATOR LAB BLOOD ORDERABLES Final Re sult Performing Organization Address City/[facility]/ZIP Co de Phone Number [facility] [place] [address] * Phosphorus (06/10/2022 10:27 PM CDT) Phosphorus, pl 3.6 2.3 - 4.5 mg/dL [facility] Blood 06/10/2022 10:2 7 PM CDT 06/10/2022 10:37 PM CDT Marcelina Lo CHIEF AIRLINE RADIO OPERATOR LAB BLOOD ORDERABLES Final Re sult Performing Organization Address [facility] Co de Phone Number [facility] [place] [address] * (ABNORMAL) Beta-hydroxybutyrate (06/10/2022 10:27 PM CDT) Beta-Hydroxybut yrate 1.1(H) 0.0 - 0.5 mmol/L [facility] Blood 06/10/2022 10:2 7 PM CDT 06/10/2022 10:37 PM CDT Marcelina Lo CHIEF AIRLINE RADIO OPERATOR LAB BLOOD ORDERABLES Edited R esult - Final Performing Organization Address [facility]/ZIP Co de Phone Number [facility] [place] [address] * Lipase (06/10/2022 10:27 PM CDT) Lipase 26 10 - 99 Units/L [facility] Blood 06/10/2022 10:2 7 PM CDT 06/10/2022 10:37 PM CDT Marcelina Lo CHIEF AIRLINE RADIO OPERATOR LAB BLOOD ORDERABLES Final Re sult Performing Organization Address City/[facility]/ZIP Co de Phone Number [facility] Department [place] [address] * (ABNORMAL) CBC with auto differential (06/10/2022 10:27 PM CDT) WBC 17.2(H) 3.8 - 9.9 K/cumm [facility] Hgb 9.0(L) 13.0 - 17.5 g/dL [facility] Hct 27.0(L) 38.9 - 50.3 % [facility] Plt 274 150 - 400 K/cumm [facility] MPV 10.7 9.1 - 12.3 fL [facility] RBC 2.88(L) 4.30 - 5.80 M/cumm [facility] MCV 93.8 81.3 - 96.4 fL [facility] MCH 31.3 27.1 - 33.3 pg [facility] MCHC 33.3 32.3 - 35.7 g/dL [facility] RDW CV 13.5 11.1 - 14.9 % [facility] RDW SD 46.1 35.7 - 48.1 fL [facility] NRBC abs 0.08(H) 0.00 - 0.01 K/cumm [facility] Blood 06/10/2022 10:2 7 PM CDT 06/10/2022 10:37 PM CDT Marcelina Lo CHIEF AIRLINE RADIO OPERATOR LAB BLOOD ORDERABLES Final Re sult [facility] Department [place] [address] * POCT glucose (06/10/2022 5:13 PM CDT) Glucose, POC 106 70 - 199 mg/dL [facility] Blood 06/10/2022 5:13 PM CDT 06/10/2022 5:13 PM CDT Catherine Adams MD LAB POCT ORDERABLES - DEVIC E Final Result Performing Organization Address [facility] Co de Phone Number [facility] Department [place] [address] * (ABNORMAL) Triglycerides (06/10/2022 5:13 PM CDT) Triglycerides 401(H) <=149 mg/dL [facility] Comment: Interpretive Data Ages < or [...] Interpretive Data was last revised on 2018. Blood 06/10/2022 5:13 PM CDT 06/10/2022 5:39 PM CDT Narrative [facility] - 06/10/2022 6:07 PM CDT While on propofol infusion. Catherine Adams MD LAB BLOOD ORDERABLES Final Result Performing Organization Address [facility] de Phone Number [facility] Department [place] [address] * (ABNORMAL) Blood gas, arterial (06/10/2022 2:24 PM CDT) pH, Art 7.38 7.35 - 7.45 [facility] PCO2, Arterial 39 35 - 45 mmHg [facility] PO2, Arterial 66(L) 83 - 108 mmHg [facility] HCO3 Art (Calculated) 24 20 - 30 mmol/L [facility] BE, art -2 mmol/L [facility] Comment: Interpretive Data No Reference Range Established Current Interpretive Data was last revised on 2017 O2 Sat Art (Measured) 91 90 - 95 % [facility] Blood 06/10/2022 2:24 PM CDT 06/10/2022 2:31 PM CDT Marcelina Lo NP LAB BLOOD ORDERABLES Final Re sult Performing Organization Address [facility] Co de Phone Number [facility] Department [place] [address] * POCT glucose (06/10/2022 1:13 PM CDT) Glucose, POC 189 70 - 199 mg/dL [facility] Blood 06/10/2022 1:13 PM CDT 06/10/2022 1:13 PM CDT Catherine Adams MD LAB POCT ORDERABLES - DEVIC E Final Result [facility] Department [place] [address] * Lactate, whole blood (06/10/2022 1:12 PM CDT) Pathologist [facility] Lactate, bld 1.1 0.7 - 2.0 mmol/L [facility] Blood 06/10/2022 1:12 PM CDT 06/10/2022 1:25 PM CDT Marcelina Lo CHIEF AIRLINE RADIO OPERATOR LAB BLOOD ORDERABLES Final Re sult Performing Organization Address [facility] Co de Phone Number [facility] [place] [address] * (ABNORMAL) Blood gas, arterial (06/10/2022 1:12 PM CDT) pH, Art 7.40 7.35 - 7.45 [facility] PCO2, Arterial 36 35 - 45 mmHg [facility] PO2, Arterial 67(L) 83 - 108 mmHg [facility] HCO3 Art (Calculated) 23 20 - 30 mmol/L [facility] BE, art -2 mmol/L [facility] Comment: Interpretive Data No Reference Range Established Current Interpretive Data was last revised on 2017 O2 Sat Art (Measured) 92 90 - 95 % [facility] Blood 06/10/2022 1:12 PM CDT 06/10/2022 1:25 PM CDT Marcelina Lo CHIEF AIRLINE RADIO OPERATOR LAB BLOOD ORDERABLES Final Re sult Performing Organization Address [facility] Co de Phone Number [facility] [place] [address] * REMOVE VAD - DIFFERENT SESSION (06/10/2022 11:54 AM CDT) Anatomical Region Laterality Modality X-Ray Angiograph y Narrative 06/10/2022 12:40 PM CDT Impella removal Interventional fellow: ??Dr. Rafa Flores HPI: ??51-year-old male with a history of multivessel coronary disease, end-stage renal disease, atrial fibrillation, diabetes and morbid obesity now referred for Impella removal. ??Patient presented to outside hospital recurrent episodes of flash pulmonary edema and acute hypoxic respiratory distress. ??Cardiac catheterization revealed high-grade mid right coronary disease in a left-dominant circumflex involving the ostium, mid AV groove and bifurcation with the 1st obtuse marginal. ??He underwent complex PCI requiring adjunctive intravascular lithotripsy with a long series of stents in the AV groove and bifurcation marginal. ??This was complicated by hypotension and hypoxemia. ??He required multiple doses of Jonn-Synephrine and intubation. ??Levophed and epinephrine were started. ?? Completion of the case a Impella CP was inserted with improvement in blood pressure. ??Pressors were weaned off in the lab technician but hypoxemia has been slow to resolve despite his peritoneal dialysis accelerated to hemodialysis. ??Impella is currently weaned to P2 and ready for removal. ?? Pre close system had been used with two 6 [place]ian pro style placed in orthogonal fashion prior to insertion of the Impella sheath. Procedure: ??The patient is prepped and draped in sterile fashion. ??2% local lidocaine anesthesia was utilized. ??Additional fentanyl and propofol administered for sedation. ??Both the right and left femoral artery areas were anesthetized in case a contralateral sheath insertion were necessary for balloon assisted hemostasis. ??The Impella was turned off, an extra support wire placed through the Impella permanent sheath to maintain access, the Impella was removed in both Perclose system cinched to obtain hemostasis. ??The area was well cleaned and antibiotic coverage provided. ?? He was transported back to the CCU in critical but stable condition. Overall impression: 1. Successful removal of Impella CP from right femoral artery using previously deployed Perclose system x2. 2. History of non ST elevation [place] with mild LV dysfunction status post recent complex PCI of left dominant circumflex and marginal bifurcation system. 3. Combination cardiogenic and noncardiogenic acute hypoxemic respiratory failure. ?? 4. End-stage renal disease on temporary hemodialysis dialysis ??. Therapy recommendations: ??Continued respiratory support the aggressive diuresis and weaning work towards extubation. ??The remainder care per CCU team, Nephrology and Pulmonary Aj Poe MD CV CARDIAC CATH PROCEDURES Final Result * (ABNORMAL) POCT Activated clotting time, low range (06/10/2022 9:56 AM CDT) ACT 183(H) 123 - 168 sec [facility] Blood 06/10/2022 9:56 AM CDT 06/10/2022 9:56 AM CDT Catherine Adams MD LAB POCT ORDERABLES - DEVIC E Final Result Performing Organization Address [facility] de Phone Number [facility] [place] [address] * (ABNORMAL) POCT Activated clotting time, low range (06/10/2022 8:08 AM CDT) Pathologist [facility] ACT 214(H) 123 - 168 sec [facility] Blood 06/10/2022 8:08 AM CDT 06/10/2022 8:08 AM CDT Catherine Adams MD LAB POCT ORDERABLES - DEVIC E Final Result Performing Organization Address [facility] de Phone Number [facility] [place] [address] * POCT glucose (06/10/2022 7:54 AM CDT) [facility] Glucose, POC 138 70 - 199 mg/dL [facility] Blood 06/10/2022 7:54 AM CDT 06/10/2022 7:54 AM CDT Catherine Adams MD LAB POCT ORDERABLES - DEVIC E Final Result Performing Organization Address [facility] de Phone Number [facility] [place] [address] * (ABNORMAL) eGFR (06/10/2022 7:52 AM CDT) Pathologist [facility] eGFR 31(L) 90 - 130 mL/min/1. 73 m2 [facility] Comment: Interpretive Data Reference Interval [...] interpretive data was last reviewed 2021. Blood 06/10/2022 7:52 AM CDT 06/10/2022 8:07 AM CDT us Catherine Adams MD LAB BLOOD ORDERABLES Final Result [facility] Department of Laboratories [place], [place] [id number] * (ABNORMAL) Differential, auto (06/10/2022 7:52 AM CDT) Neutrophil abs 6.7(H) 1.7 - 6.5 K/cumm [facility] Imm gran abs 1.0(H) 0.0 - 0.1 K/cumm [facility] Lymphocyte abs 1.4 0.8 - 3.3 K/cumm [facility] Monocyte abs 0.9(H) 0.2 - 0.8 K/cumm [facility] Eosinophil abs 0.3 0.0 - 0.5 K/cumm [facility] Basophil abs 0.0 0.0 - 0.1 K/cumm [facility] Neutrophil pct 65.5 % [facility] Comment: Confirmed by smear review Interpretive Data Percent cell count reference ranges are not reported, since discordance with absolute values may lead to misinterpretation of CBC data. Current Interpretive Data was last revised on 2017. Imm gran pct 9.4 % [facility] Comment: Interpretive Data Percent cell count reference ranges are not reported, since discordance with absolute values may lead to misinterpretation of CBC data. Current Interpretive Data was last revised on 2017. Lymphocyte pct 13.4 % [facility] Comment: Interpretive Data Percent cell count reference ranges are not reported, since discordance with absolute values may lead to misinterpretation of CBC data. Current Interpretive Data was last revised on 2017. Monocyte pct 8.8 % [facility] Comment: Interpretive Data Percent cell count reference ranges are not reported, since discordance with absolute values may lead to misinterpretation of CBC data. Current Interpretive Data was last revised on 2017. Eosinophil pct 2.6 % [facility] Comment: Interpretive Data Percent cell count reference ranges are not reported, since discordance with absolute values may lead to misinterpretation of CBC data. Current Interpretive Data was last revised on 2017. Basophil pct 0.3 % [facility] Comment: Interpretive Data Percent cell count reference ranges are not reported, since discordance with absolute values may lead to misinterpretation of CBC data. Current Interpretive Data was last revised on 2017. Blood 06/10/2022 7:52 AM CDT 06/10/2022 8:07 AM CDT us Catherine Adams MD LAB BLOOD ORDERABLES Final Result [facility] Department [place] [address] * Lactate, whole blood (06/10/2022 7:52 AM CDT) Lactate, bld 1.2 0.7 - 2.0 mmol/L [facility] Blood 06/10/2022 7:52 AM CDT 06/10/2022 8:02 AM CDT us Marcelina D. Lo CHIEF AIRLINE RADIO OPERATOR LAB BLOOD ORDERABLES Final Re sult [facility] [place] [address] * (ABNORMAL) Blood gas, arterial (06/10/2022 7:52 AM CDT) pH, Art 7.46(H) 7.35 - 7.45 [facility] PCO2, Arterial 34(L) 35 - 45 mmHg [facility] PO2, Arterial 99 83 - 108 mmHg [facility] HCO3 Art (Calculated) 25 20 - 30 mmol/L [facility] BE, art 1 mmol/L [facility] Comment: Interpretive Data No Reference Range Established Current Interpretive Data was last revised on 2017 O2 Sat Art (Measured) 98(H) 90 - 95 % [facility] Blood 06/10/2022 7:52 AM CDT 06/10/2022 8:02 AM CDT Marcelina Lo CHIEF AIRLINE RADIO OPERATOR LAB BLOOD ORDERABLES Final Re sult Performing Organization Address [facility]/ZIP Co de Phone Number [facility] [facility] [place] [address] * Magnesium (06/10/2022 7:52 AM CDT) Pathologist [facility] Magnesium 2.4 1.4 - 2.5 mg/dL [facility] Blood 06/10/2022 7:52 AM CDT 06/10/2022 8:07 AM CDT Marcelina Lo CHIEF AIRLINE RADIO OPERATOR LAB BLOOD ORDERABLES Final Re sult [facility] [place] [address] * (ABNORMAL) Comprehensive metabolic panel (06/10/2022 7:52 AM CDT) Sodium 135 135 - 145 mmol/L [facility] Potassium, pl 4.3 3.3 - 4.9 mmol/L [facility] Chloride 100 97 - 110 mmol/L [facility] CO2 26 22 - 32 mmol/L [facility] Anion gap 9 2 - 15 mmol/L [facility] BUN 20 8 - 25 mg/dL [facility] Creatinine 2.44(H) 0.80 - 1.30 mg/dL [facility] Glucose 138 70 - 199 mg/dL [facility] Comment: Interpretive Data Fasting glucose >/= [...] classification and Diagnosis of Diabetes Diabetes Care 2017;40 (Suppl. 1):S11. Current interpretive data was last revised 2017. Calcium 8.4(L) 8.5 - 10.3 mg/dL [facility] Bilirubin, total 0.8 0.1 - 1.2 mg/dL [facility] Protein, pl 6.2(L) 6.5 - 8.5 g/dL [facility] Albumin 3.0(L) 3.5 - 5.0 g/dL [facility] Alk phos 169(H) 40 - 130 Units/L [facility] ALT 45 7 - 55 Units/L [facility] AST 117(H) 10 - 50 Units/L [facility] Blood 06/10/2022 7:52 AM CDT 06/10/2022 8:07 AM CDT us Marcelina Lo NP LAB BLOOD ORDERABLES Final Re sult [facility] [place] [address] * (ABNORMAL) CBC with auto differential (06/10/2022 7:52 AM CDT) WBC 10.2(H) 3.8 - 9.9 K/cumm [facility] Hgb 8.3(L) 13.0 - 17.5 g/dL [facility] Hct 25.1(L) 38.9 - 50.3 % [facility] Plt 201 150 - 400 K/cumm [facility] MPV 10.9 9.1 - 12.3 fL [facility] RBC 2.70(L) 4.30 - 5.80 M/cumm [facility] MCV 93.0 81.3 - 96.4 fL [facility] MCH 30.7 27.1 - 33.3 pg [facility] MCHC 33.1 32.3 - 35.7 g/dL [facility] RDW CV 13.3 11.1 - 14.9 % [facility] RDW SD 45.1 35.7 - 48.1 fL [facility] NRBC abs 0.02(H) 0.00 - 0.01 K/cumm [facility] Blood 06/10/2022 7:52 AM CDT 06/10/2022 8:07 AM CDT us Marcelina Lo CHIEF AIRLINE RADIO OPERATOR LAB BLOOD ORDERABLES Final Re sult Performing Organization Address City/[facility]/ZIP Co de Phone Number [facility] [place] [address] * Oxyhemoglobin, central venous (06/10/2022 5:36 AM CDT) [facility] Oxyhemoglobin, CV 70.2 % [facility] Comment: Interpretive Data No reference range established. Current interpretive data was last revised 2019. Blood 06/10/2022 5:36 AM CDT 06/10/2022 5:58 AM CDT us Lavern Morrison MD LAB BLOOD ORDERABLES F inal Result [facility] [place] [address] * Lactate, whole blood (06/10/2022 5:36 AM CDT) Lactate, bld 1.4 0.7 - 2.0 mmol/L [facility] Blood 06/10/2022 5:36 AM CDT 06/10/2022 5:58 AM CDT us Marcelina Lo CHIEF AIRLINE RADIO OPERATOR LAB BLOOD ORDERABLES Final Re sult [facility] Department [place] [address] * XR Chest 1 View (06/10/2022 5:32 AM CDT) Anatomical Region Laterality Modality Body, Chest N/A Computed Radiogr aphy 06/10/2022 11:3 8 AM CDT Impressions 06/10/2022 11:42 AM CDT Comparison is made with prior radiograph dated 06/09/2022 7:57 AM. ??Left internal jugular central venous catheter terminates in the proximal superior vena cava. Feeding tube courses below diaphragm with tip not seen. Inferior approach [place]-Liv catheter has tip projecting over the main pulmonary artery. An Impella device is in place, unchanged. ?? Again seen are moderate airspace and interstitial opacities throughout both lungs. ??The opacities are more confluent in the right upper lung on today's examination. ??This is favored to represent shifting atelectasis and/or edema. ??No pleural effusion or pneumothorax. ??Cardiomediastinal silhouette is unchanged. ?? Dictated by: Grant Gonzalez MD The radiology attending physician has personally reviewed this study, and had reviewed and/or edited this written report and agrees with it. Electronically signed by: Ramirez Blake M.D. Narrative 06/10/2022 11:42 AM CDT EXAMINATION: 1 view chest radiograph Procedure Note Ramirez Blake MD - 06/10/2022 EXAMINATION: 1 view chest radiograph IMPRESSION: Comparison is made with prior radiograph dated 06/09/2022 7:57 AM. Left internal jugular central venous catheter terminates in the proximal superior vena cava. Feeding tube courses below diaphragm with tip not seen. Inferior approach [place]-Liv catheter has tip projecting over the main pulmonary artery. An Impella device is in place, unchanged. Again seen are moderate airspace and interstitial opacities throughout both lungs. The opacities are more confluent in the right upper lung on today's examination. This is favored to represent shifting atelectasis and/or edema. No pleural effusion or pneumothorax. Cardiomediastinal silhouette is unchanged. Dictated by: Grant Gonzalez MD The radiology attending physician has personally reviewed this study, and had reviewed and/or edited this written report and agrees with it. Electronically signed by: Ramirez Blake M.D. Catherine Adams MD IMG XR PROCEDURES Final Res ult * (ABNORMAL) Blood gas, arterial (06/10/2022 3:45 AM CDT) pH, Art 7.45 7.35 - 7.45 [facility] PCO2, Arterial 36 35 - 45 mmHg [facility] PO2, Arterial 92 83 - 108 mmHg [facility] HCO3 Art (Calculated) 26 20 - 30 mmol/L [facility] BE, art 1 mmol/L [facility] Comment: Interpretive Data No Reference Range Established Current Interpretive Data was last revised on 2017 O2 Sat Art (Measured) 97(H) 90 - 95 % [facility] Blood 06/10/2022 3:45 AM CDT 06/10/2022 3:52 AM CDT Marcelina Lo CHIEF AIRLINE RADIO OPERATOR LAB BLOOD ORDERABLES Final Re sult [facility] [place] [address] * POCT glucose (06/10/2022 3:42 AM CDT) Glucose, POC 150 70 - 199 mg/dL [facility] Blood 06/10/2022 3:42 AM CDT 06/10/2022 3:42 AM CDT Catherine Adams MD LAB POCT ORDERABLES - DEVIC E Final Result Performing Organization Address [facility] Co de Phone Number [facility] [place] [address] * Lactate, whole blood (06/10/2022 12:26 AM CDT) Lactate, bld 1.4 0.7 - 2.0 mmol/L [facility] Blood 06/10/2022 12:2 6 AM CDT 06/10/2022 12:33 AM CDT Catherine Adams MD LAB BLOOD ORDERABLES Final Result Performing Organization Address [facility] de Phone Number [facility] [place] [address] * (ABNORMAL) Blood gas, arterial (06/10/2022 12:26 AM CDT) pH, Art 7.45 7.35 - 7.45 [facility] PCO2, Arterial 36 35 - 45 mmHg [facility] PO2, Arterial 102 83 - 108 mmHg [facility] HCO3 Art (Calculated) 26 20 - 30 mmol/L [facility] BE, art 2 mmol/L [facility] Comment: Interpretive Data No Reference Range Established Current Interpretive Data was last revised on 2017 O2 Sat Art (Measured) 96(H) 90 - 95 % [facility] Blood 06/10/2022 12:2 6 AM CDT 06/10/2022 12:33 AM CDT Marcelina Lo NP LAB BLOOD ORDERABLES Final Re sult Performing Organization Address [facility] Co de Phone Number [facility] [place] [address] * POCT glucose (06/10/2022 12:21 AM CDT) Glucose, POC 157 70 - 199 mg/dL [facility] Blood 06/10/2022 12:2 1 AM CDT 06/10/2022 12:21 AM CDT Result [facility] Catherine Adams MD LAB POCT ORDERABLES - DEVIC E Final Result Performing Organization Address [facility] de Phone Number [facility] Department [place] [address] * (ABNORMAL) Blood gas, arterial (06/09/2022 10:28 PM CDT) pH, Art 7.43 7.35 - 7.45 [facility] PCO2, Arterial 38 35 - 45 mmHg [facility] PO2, Arterial 93 83 - 108 mmHg [facility] HCO3 Art (Calculated) 26 20 - 30 mmol/L [facility] BE, art 1 mmol/L [facility] Comment: Interpretive Data No Reference Range Established Current Interpretive Data was last revised on 2017 O2 Sat Art (Measured) 97(H) 90 - 95 % [facility] Blood 06/09/2022 10:2 8 PM CDT 06/09/2022 10:38 PM CDT Result [facility] Catherine Admas MD LAB BLOOD ORDERABLES Final Result Performing Organization Address [facility] de Phone Number [facility] Department [place] [address] * POCT glucose (06/09/2022 8:40 PM CDT) Glucose, POC 182 70 - 199 mg/dL [facility] Blood 06/09/2022 8:40 PM CDT 06/09/2022 8:40 PM CDT Result [facility] Catherine Adams MD LAB POCT ORDERABLES - DEVIC E Final Result Performing Organization Address [facility] Co de Phone Number [facility] Department [place] [address] * (ABNORMAL) eGFR (06/09/2022 8:33 PM CDT) eGFR 26(L) 90 - 130 mL/min/1. 73 m2 [facility] Comment: Interpretive Data Reference Interval Normal [...] interpretive data was last reviewed 2021. Blood 06/09/2022 8:33 PM CDT 06/09/2022 9:07 PM CDT Catherine Adams MD LAB BLOOD ORDERABLES Final Result Performing Organization Address [facility] Co de Phone Number [facility] Department [place] [address] * (ABNORMAL) Differential, auto (06/09/2022 8:33 PM CDT) Neutrophil abs 5.8 1.7 - 6.5 K/cumm [facility] Imm gran abs 0.7(H) 0.0 - 0.1 K/cumm [facility] Lymphocyte abs 1.2 0.8 - 3.3 K/cumm [facility] Monocyte abs 1.0(H) 0.2 - 0.8 K/cumm [facility] Eosinophil abs 0.3 0.0 - 0.5 K/cumm [facility] Basophil abs 0.0 0.0 - 0.1 K/cumm [facility] Neutrophil pct 64.3 % [facility] Comment: Interpretive Data Percent cell count reference ranges are not reported, since discordance with absolute values may lead to misinterpretation of CBC data. Current Interpretive Data was last revised on 2017. Imm gran pct 7.7 % [facility] Comment: Interpretive Data Percent cell count reference ranges are not reported, since discordance with absolute values may lead to misinterpretation of CBC data. Current Interpretive Data was last revised on 2017. Lymphocyte pct 13.4 % [facility] Comment: Interpretive Data Percent cell count reference ranges are not reported, since discordance with absolute values may lead to misinterpretation of CBC data. Current Interpretive Data was last revised on 2017. Monocyte pct 11.5 % [facility] Comment: Interpretive Data Percent cell count reference ranges are not reported, since discordance with absolute values may lead to misinterpretation of CBC data. Current Interpretive Data was last revised on 2017. Eosinophil pct 2.8 % [facility] Comment: Interpretive Data Percent cell count reference ranges are not reported, since discordance with absolute values may lead to misinterpretation of CBC data. Current Interpretive Data was last revised on 2017. Basophil pct 0.3 % [facility] Comment: Interpretive Data Percent cell count reference ranges are not reported, since discordance with absolute values may lead to misinterpretation of CBC data. Current Interpretive Data was last revised on 2017. Blood 06/09/2022 8:33 PM CDT 06/09/2022 9:07 PM CDT us Catherine Adams MD LAB BLOOD ORDERABLES Final Result Performing Organization Address [facility] Co de Phone Number [facility] Department [place] [address] * (ABNORMAL) Blood gas, arterial (06/09/2022 8:33 PM CDT) pH, Art 7.41 7.35 - 7.45 [facility] PCO2, Arterial 39 35 - 45 mmHg [facility] PO2, Arterial 92 83 - 108 mmHg [facility] HCO3 Art (Calculated) 25 20 - 30 mmol/L [facility] BE, art 0 mmol/L [facility] Comment: Interpretive Data No Reference Range Established Current Interpretive Data was last revised on 2017 O2 Sat Art (Measured) 96(H) 90 - 95 % [facility] Blood 06/09/2022 8:33 PM CDT 06/09/2022 8:58 PM CDT us Marcelina Lo NP LAB BLOOD ORDERABLES Final Re sult Performing Organization Address [facility] Co de Phone Number [facility] Department [place] [address] * (ABNORMAL) aPTT (06/09/2022 8:33 PM CDT) Pathologist [facility] aPTT 92(H) 27 - 37 sec [facility] Comment: Interpretive Data Therapeutic heparin range: 60.0 - 94.0 seconds. Based on correlation with therapeutic heparin activity range of 0.3-0.7 Units/mL. Current interpretive data was last revised on 2020. Blood 06/09/2022 8:33 PM CDT 06/09/2022 9:01 PM CDT Narrative [facility] - 06/09/2022 9:28 PM CDT Draw STAT PTT 6 hrs after initiation of heparin infusion, draw STAT PTT 6 hours after each dose/rate change, and every 6 hours until 2 consecutive PTTs are within therapeutic range. Once two consecutive PTT's are therapeutic (60-94.9 seconds), then draw PTT every AM until heparin is discontinued. Conrad Weston Chi, MD LAB BLOOD ORDERABLES Ann Marie l Result Performing Organization Address [facility] Co de Phone Number [facility] [place] [address] * Phosphorus (06/09/2022 8:33 PM CDT) Phosphorus, pl 3.2 2.3 - 4.5 mg/dL [facility] Blood 06/09/2022 8:3 3 PM CDT 06/09/2022 9:07 PM CDT Marcelina Lo CHIEF AIRLINE RADIO OPERATOR LAB BLOOD ORDERABLES Final Re sult Performing Organization Address [facility] Co de Phone Number [facility] [place] [address] * Beta-hydroxybutyrate (06/09/2022 8:33 PM CDT) Beta-Hydroxybut yrate 0.3 0.0 - 0.5 mmol/L [facility] Blood 06/09/2022 8:33 PM CDT 06/09/2022 9:07 PM CDT Marcelina Lo CHIEF AIRLINE RADIO OPERATOR LAB BLOOD ORDERABLES Edited R esult - Final Performing Organization Address [facility] Co de Phone Number [facility] [place] [address] * Haptoglobin (06/09/2022 8:33 PM CDT) Haptoglobin 153.0 30.0 - 200.0 mg/dL [facility] Blood 06/09/2022 8:33 PM CDT 06/09/2022 9:07 PM CDT Catherine Adams MD LAB BLOOD ORDERABLES Final Result Performing Organization Address [facility] Co de Phone Number [facility] [place] [address] * Lipase (06/09/2022 8:33 PM CDT) Lipase 21 10 - 99 Units/L [facility] Blood 06/09/2022 8:33 PM CDT 06/09/2022 9:07 PM CDT Marcelina Lo CHIEF AIRLINE RADIO OPERATOR LAB BLOOD ORDERABLES Final Re sult Performing Organization Address [facility] de Phone Number [facility] [place] [address] * (ABNORMAL) Lactate dehydrogenase (LD) (06/09/2022 8:33 PM CDT) Lactate dehydrogenase (LDH) 528(H) 100 - 250 Units/L [facility] Blood 06/09/2022 8:33 PM CDT 06/09/2022 9:07 PM CDT Catherine Adams MD LAB BLOOD ORDERABLES Final Result Performing Organization Address [facility] Co de Phone Number [facility] [place] [address] * Magnesium (06/09/2022 8:33 PM CDT) Magnesium 2.4 1.4 - 2.5 mg/dL [facility] Blood 06/09/2022 8:33 PM CDT 06/09/2022 9:07 PM CDT Marcelina Lo CHIEF AIRLINE RADIO OPERATOR LAB BLOOD ORDERABLES Final Re sult Performing Organization Address [facility]/ZIP Co de Phone Number [facility] Department [place] [address] * (ABNORMAL) Comprehensive metabolic panel (06/09/2022 8:33 PM CDT) Sodium 134(L) 135 - 145 mmol/L [facility] Potassium, pl 4.4 3.3 - 4.9 mmol/L [facility] Chloride 99 97 - 110 mmol/L [facility] CO2 25 22 - 32 mmol/L [facility] Anion gap 10 2 - 15 mmol/L [facility] BUN 24 8 - 25 mg/dL [facility] Creatinine 2.82(H) 0.80 - 1.30 mg/dL [facility] Glucose 173 70 - 199 mg/dL [facility] Comment: Interpretive Data Fasting glucose >/= [...] classification and Diagnosis of Diabetes Diabetes Care 2017;40 (Suppl. 1):S11. Current interpretive data was last revised 2017. Calcium 8.3(L) 8.5 - 10.3 mg/dL [facility] Bilirubin, total 0.8 0.1 - 1.2 mg/dL [facility] Protein, pl 6.1(L) 6.5 - 8.5 g/dL [facility] Albumin 2.8(L) 3.5 - 5.0 g/dL [facility] Alk phos 168(H) 40 - 130 Units/L [facility] ALT 45 7 - 55 Units/L [facility] AST 129(H) 10 - 50 Units/L [facility] Blood 06/09/2022 8:33 PM CDT 06/09/2022 9:07 PM CDT us Marcelina Lo CHIEF AIRLINE RADIO OPERATOR LAB BLOOD ORDERABLES Final Re sult Performing Organization Address [facility] Co de Phone Number [facility] [place] [address] * (ABNORMAL) CBC with auto differential (06/09/2022 8:33 PM CDT) [facility] WBC 9.1 3.8 - 9.9 K/cumm [facility] Hgb 8.2(L) 13.0 - 17.5 g/dL [facility] Hct 24.8(L) 38.9 - 50.3 % [facility] Plt 208 150 - 400 K/cumm [facility] MPV 11.0 9.1 - 12.3 fL [facility] RBC 2.66(L) 4.30 - 5.80 M/cumm [facility] MCV 93.2 81.3 - 96.4 fL [facility] MCH 30.8 27.1 - 33.3 pg [facility] MCHC 33.1 32.3 - 35.7 g/dL [facility] RDW CV 13.2 11.1 - 14.9 % [facility] RDW SD 45.5 35.7 - 48.1 fL [facility] NRBC abs 0.00 0.00 - 0.01 K/cumm [facility] Blood 06/09/2022 8:33 PM CDT 06/09/2022 9:07 PM CDT Marcelina Lo CHIEF AIRLINE RADIO OPERATOR LAB BLOOD ORDERABLES Final Re sult Performing Organization Address [facility] Co de Phone Number [facility] Department [place] [address] * Oxyhemoglobin, pulmonary artery (06/09/2022 3:52 PM CDT) Pathologist [facility] Oxyhemoglobin, PA 66.5 % [facility] Comment: Interpretive Data No reference range established. Current interpretive data was last revised 2019. Blood 06/09/2022 3:52 PM CDT 06/09/2022 4:01 PM CDT Marcelina Lo CHIEF AIRLINE RADIO OPERATOR LAB BLOOD ORDERABLES Final Re sult Performing Organization Address [facility] Co de Phone Number [facility] [place] [address] * Lactate, whole blood (06/09/2022 3:52 PM CDT) [facility] Lactate, bld 1.4 0.7 - 2.0 mmol/L [facility] Blood 06/09/2022 3:52 PM CDT 06/09/2022 4:01 PM CDT Marcelina Lo CHIEF AIRLINE RADIO OPERATOR LAB BLOOD ORDERABLES Final Re sult Performing Organization Address [facility] de Phone Number [facility] [place] [address] * (ABNORMAL) Hemoglobin total, pulmonary artery (06/09/2022 3:52 PM CDT) [facility] Hemoglobin total, PA 8.9(L) 13.0 - 17.5 g/dL [facility] Blood 06/09/2022 3:52 PM CDT 06/09/2022 4:01 PM CDT Marcelina Lo CHIEF AIRLINE RADIO OPERATOR LAB BLOOD ORDERABLES Final Re sult Performing Organization Address [facility] Co de Phone Number [facility] [place] [address] * (ABNORMAL) Blood gas, arterial (06/09/2022 3:52 PM CDT) [facility] pH, Art 7.38 7.35 - 7.45 [facility] PCO2, Arterial 45 35 - 45 mmHg [facility] PO2, Arterial 80(L) 83 - 108 mmHg [facility] HCO3 Art (Calculated) 27 20 - 30 mmol/L [facility] BE, art 1 mmol/L [facility] Comment: Interpretive Data No Reference Range Established Current Interpretive Data was last revised on 2017 O2 Sat Art (Measured) 94 90 - 95 % [facility] Blood 06/09/2022 3:52 PM CDT 06/09/2022 4:01 PM CDT Catherine Adams MD LAB BLOOD ORDERABLES Final Result Performing Organization Address City/[facility] Co de Phone Number [facility] Department [place] [address] * POCT glucose (06/09/2022 3:50 PM CDT) Glucose, POC 136 70 - 199 mg/dL [facility] Blood 06/09/2022 3:50 PM CDT 06/09/2022 3:50 PM CDT us Catherine Adams MD LAB POCT ORDERABLES - DEVIC E Final Result Performing Organization Address [facility] Co de Phone Number [facility] Department [place] [address] * Lactate, whole blood (06/09/2022 11:59 AM CDT) Lactate, bld 1.3 0.7 - 2.0 mmol/L [facility] Blood 06/09/2022 11:5 9 AM CDT 06/09/2022 12:10 PM CDT us Marcelina Lo NP LAB BLOOD ORDERABLES Final Re sult Performing Organization [facility] Hospital/[facility] Co de Phone Number [facility] [place] [address] * (ABNORMAL) Hemoglobin total, pulmonary artery (06/09/2022 11:59 AM CDT) Hemoglobin total, PA 10.2(L) 13.0 - 17.5 g/dL [facility] Blood 06/09/2022 11:5 9 AM CDT 06/09/2022 12:10 PM CDT Marcelina Lo CHIEF AIRLINE RADIO OPERATOR LAB BLOOD ORDERABLES Final Re sult Performing Organization Address City/[facility]/ZIP Co de Phone Number [facility] [place] [address] * Oxyhemoglobin, pulmonary artery (06/09/2022 11:59 AM CDT) Oxyhemoglobin, PA 65.2 % [facility] Comment: Interpretive Data No reference range established. Current interpretive data was last revised 2019. Blood 06/09/2022 11:5 9 AM CDT 06/09/2022 12:10 PM CDT Marcelina Lo CHIEF AIRLINE RADIO OPERATOR LAB BLOOD ORDERABLES Final Re sult Performing Organization Address [facility] Co de Phone Number [facility] [place] [address] * (ABNORMAL) aPTT (06/09/2022 11:59 AM CDT) aPTT 79(H) 27 - 37 sec [facility] Comment: Interpretive Data Therapeutic heparin range: 60.0 - 94.0 seconds. Based on correlation with therapeutic heparin activity range of 0.3-0.7 Units/mL. Current interpretive data was last revised on 2020. Blood 06/09/2022 11:5 9 AM CDT 06/09/2022 12:14 PM CDT Narrative [facility] - 06/09/2022 12:40 PM CDT Draw STAT PTT 6 hrs after initiation of heparin infusion, draw STAT PTT 6 hours after each dose/rate change, and every 6 hours until 2 consecutive PTTs are within therapeutic range. Once two consecutive PTT's are therapeutic (60-94.9 seconds), then draw PTT every AM until heparin is discontinued. us Conrad Weston Chi, MD LAB BLOOD ORDERABLES Ann Marie l Result [facility] Department [place] [address] * POCT glucose (06/09/2022 11:58 AM CDT) [facility] Signature Glucose, POC 171 70 - 199 mg/dL [facility] Blood 06/09/2022 11:5 8 AM CDT 06/09/2022 11:58 AM CDT Catherine Adams MD LAB POCT ORDERABLES - DEVIC E Final Result Performing Organization Address [facility] Co de Phone Number [facility] Department [place] [address] * XR Chest 1 View (06/09/2022 8:57 AM CDT) Anatomical Region Laterality Modality Body, Chest N/A Computed Radiogr aphy 06/09/2022 10:4 2 AM CDT Impressions 06/09/2022 2:20 PM CDT The current study is compared with the prior radiograph dated 06/08/2022 First exam 06/09/2022 3:50 AM Left internal jugular central venous catheter terminates in the proximal superior vena cava. Enteric tube courses below diaphragm with tip not seen. Inferior approach [place] catheter has been retracted with the tip projecting over the main pulmonary artery. An Impella device is in place, unchanged. There is mild cardiomegaly, unchanged. There is moderate asymmetric left lung and right upper lobe pulmonary edema. Likely small left pleural effusion although the left costophrenic angle is partially off the [id number]. No right pleural effusion or pneumothorax. Second exam ??06/09/2022 7:57 AM The [place] catheter has been slightly advanced with tip projecting over the main pulmonary artery and directed towards the right pulmonary artery. Significant decrease in now mild pulmonary edema. Trace left pleural effusion. Otherwise no change. Dictated by: Dewey Matt M.D. The radiology attending physician has personally reviewed this study, and had reviewed and/or edited this written report and agrees with it. Electronically signed by: Wilma Haskins M.D. Narrative 06/09/2022 2:20 PM CDT Examination: 2 portable chests Chest one view portable Chest one view portable Procedure Note Wilma Haskins MD - 06/09/2022 Examination: 2 portable chests Chest one view portable Chest one view portable IMPRESSION: The current study is compared with the prior radiograph dated 06/08/2022 First exam 06/09/2022 3:50 AM Left internal jugular central venous catheter terminates in the proximal superior vena cava. Enteric tube courses below diaphragm with tip not seen. Inferior approach [place] catheter has been retracted with the tip projecting over the main pulmonary artery. An Impella device is in place, unchanged. There is mild cardiomegaly, unchanged. There is moderate asymmetric left lung and right upper lobe pulmonary edema. Likely small left pleural effusion although the left costophrenic angle is partially off the [id number]. No right pleural effusion or pneumothorax. Second exam 06/09/2022 7:57 AM The [place] catheter has been slightly advanced with tip projecting over the main pulmonary artery and directed towards the right pulmonary artery. Significant decrease in now mild pulmonary edema. Trace left pleural effusion. Otherwise no change. Dictated by: Dewey Matt M.D. The radiology attending physician has personally reviewed this study, and had reviewed and/or edited this written report and agrees with it. Electronically signed by: Wilma Haskins M.D. Catherine Adams MD IMG XR PROCEDURES Final Res ult * (ABNORMAL) eGFR (06/09/2022 7:57 AM CDT) [facility] eGFR 20(L) 90 - 130 mL/min/1. 73 m2 [facility] Comment: Interpretive Data Reference Interval [...] interpretive data was last reviewed 2021. Blood 06/09/2022 7:57 AM CDT 06/09/2022 8:19 AM CDT us Catherine Adams MD LAB BLOOD ORDERABLES Final Result Performing Organization Address City/State/[facility] Co de Phone Number [facility] Department of Laboratories [place], [place] [id number] * (ABNORMAL) Differential, auto (06/09/2022 7:57 AM CDT) Neutrophil abs 5.8 1.7 - 6.5 K/cumm [facility] Imm gran abs 0.5(H) 0.0 - 0.1 K/cumm [facility] Lymphocyte abs 1.2 0.8 - 3.3 K/cumm [facility] Monocyte abs 1.0(H) 0.2 - 0.8 K/cumm [facility] Eosinophil abs 0.2 0.0 - 0.5 K/cumm [facility] Basophil abs 0.0 0.0 - 0.1 K/cumm [facility] Neutrophil pct 67.0 % [facility] Comment: Interpretive Data Percent cell count reference ranges are not reported, since discordance with absolute values may lead to misinterpretation of CBC data. Current Interpretive Data was last revised on 2017. Imm gran pct 5.6 % [facility] Comment: Interpretive Data Percent cell count reference ranges are not reported, since discordance with absolute values may lead to misinterpretation of CBC data. Current Interpretive Data was last revised on 2017. Lymphocyte pct 13.6 % [facility] Comment: Interpretive Data Percent cell count reference ranges are not reported, since discordance with absolute values may lead to misinterpretation of CBC data. Current Interpretive Data was last revised on 2017. Monocyte pct 11.4 % [facility] Comment: Interpretive Data Percent cell count reference ranges are not reported, since discordance with absolute values may lead to misinterpretation of CBC data. Current Interpretive Data was last revised on 2017. Eosinophil pct 2.2 % [facility] Comment: Interpretive Data Percent cell count reference ranges are not reported, since discordance with absolute values may lead to misinterpretation of CBC data. Current Interpretive Data was last revised on 2017. Basophil pct 0.2 % [facility] Comment: Interpretive Data Percent cell count reference ranges are not reported, since discordance with absolute values may lead to misinterpretation of CBC data. Current Interpretive Data was last revised on 2017. Blood 06/09/2022 7:57 AM CDT 06/09/2022 8:19 AM CDT us Catherine Adams MD LAB BLOOD ORDERABLES Final Result [facility] Department [place] [address] * Magnesium (06/09/2022 7:57 AM CDT) Magnesium 2.3 1.4 - 2.5 mg/dL [facility] Blood 06/09/2022 7:57 AM CDT 06/09/2022 8:19 AM CDT us Marcelina Lo NP LAB BLOOD ORDERABLES Final Re sult [facility] One [facility] Department [place] [address] * (ABNORMAL) Comprehensive metabolic panel (06/09/2022 7:57 AM CDT) Sodium 134(L) 135 - 145 mmol/L [facility] Potassium, pl 4.5 3.3 - 4.9 mmol/L [facility] Chloride 99 97 - 110 mmol/L [facility] CO2 28 22 - 32 mmol/L [facility] Anion gap 7 2 - 15 mmol/L [facility] BUN 32(H) 8 - 25 mg/dL [facility] Creatinine 3.50(H) 0.80 - 1.30 mg/dL [facility] Glucose 171 70 - 199 mg/dL [facility] Comment: Interpretive Data Fasting glucose >/= [...] classification and Diagnosis of Diabetes Diabetes Care 2017;40 (Suppl. 1):S11. Current interpretive data was last revised 2017. Calcium 8.4(L) 8.5 - 10.3 mg/dL [facility] Bilirubin, total 0.6 0.1 - 1.2 mg/dL [facility] Protein, pl 5.8(L) 6.5 - 8.5 g/dL [facility] Albumin 2.8(L) 3.5 - 5.0 g/dL [facility] Alk phos 165(H) 40 - 130 Units/L [facility] ALT 43 7 - 55 Units/L [facility] AST 133(H) 10 - 50 Units/L [facility] Blood 06/09/2022 7:57 AM CDT 06/09/2022 8:19 AM CDT us Marcelina Lo CHIEF AIRLINE RADIO OPERATOR LAB BLOOD ORDERABLES Final Re sult Performing Organization Address [facility] de Phone Number [facility] Department [place] [address] * Potassium, whole blood (06/09/2022 7:57 AM CDT) Pathologist [facility] Potassium, bld 4.2 3.3 - 4.9 mmol/L [facility] Blood 06/09/2022 7:57 AM CDT 06/09/2022 8:14 AM CDT Marcelina Lo CHIEF AIRLINE RADIO OPERATOR LAB BLOOD ORDERABLES Final Re sult Performing Organization Address [facility] de Phone Number [facility] [place] [address] * (ABNORMAL) Blood gas, arterial (06/09/2022 7:57 AM CDT) Pathologist [facility] pH, Art 7.43 7.35 - 7.45 [facility] PCO2, Arterial 39 35 - 45 mmHg [facility] PO2, Arterial 107 83 - 108 mmHg [facility] HCO3 Art (Calculated) 27 20 - 30 mmol/L [facility] BE, art 2 mmol/L [facility] Comment: Interpretive Data No Reference Range Established Current Interpretive Data was last revised on 2017 O2 Sat Art (Measured) 97(H) 90 - 95 % [facility] Blood 06/09/2022 7:57 AM CDT 06/09/2022 8:14 AM CDT us Marcelina Lo CHIEF AIRLINE RADIO OPERATOR LAB BLOOD ORDERABLES Final Re sult Performing Organization Address [facility] de Phone Number [facility] Department [place] [address] * Lactate, whole blood (06/09/2022 7:57 AM CDT) Lactate, bld 1.1 0.7 - 2.0 mmol/L [facility] Blood 06/09/2022 7:57 AM CDT 06/09/2022 8:14 AM CDT Marcelina Lo CHIEF AIRLINE RADIO OPERATOR LAB BLOOD ORDERABLES Final Re sult Performing Organization Address [facility]/ZIP Co de Phone Number [facility] One [facility] [place] [address] * Type and screen (06/09/2022 7:57 AM CDT) Pathologist [facility] ABO Rh A Positive [facility] Maribel, indirect Negative [facility] Blood 06/09/2022 7:57 AM CDT 06/09/2022 8:20 AM CDT Narrative [facility] - 06/09/2022 9:11 AM CDT Has the patient had Daratumumab or Isatuximab in the past 6 months?->Unknown Catherine dAams MD LAB BLOOD BANK TEST ORDERAB LES Final Result Performing Organization Address [facility] Co de Phone Number [facility] [place] [address] * (ABNORMAL) Hemoglobin total, pulmonary artery (06/09/2022 7:57 AM CDT) Pathologist [facility] Hemoglobin total, PA 8.7(L) 13.0 - 17.5 g/dL [facility] Blood 06/09/2022 7:57 AM CDT 06/09/2022 8:43 AM CDT Marcelina Lo CHIEF AIRLINE RADIO OPERATOR LAB BLOOD ORDERABLES Final Re sult Performing Organization Address City/[facility]/ZIP Co de Phone Number [facility] Department [place] [address] * Oxyhemoglobin, pulmonary artery (06/09/2022 7:57 AM CDT) [facility] Oxyhemoglobin, PA 55.8 % [facility] Comment: Interpretive Data No reference range established. Current interpretive data was last revised 2019. Blood 06/09/2022 7:57 AM CDT 06/09/2022 8:43 AM CDT us Marcelina Lo CHIEF AIRLINE RADIO OPERATOR LAB BLOOD ORDERABLES Final Re sult [facility] [place] [address] * (ABNORMAL) CBC with auto differential (06/09/2022 7:57 AM CDT) [facility] WBC 8.6 3.8 - 9.9 K/cumm [facility] Hgb 8.1(L) 13.0 - 17.5 g/dL [facility] Hct 23.5(L) 38.9 - 50.3 % [facility] Plt 179 150 - 400 K/cumm [facility] MPV 11.1 9.1 - 12.3 fL [facility] RBC 2.61(L) 4.30 - 5.80 M/cumm [facility] MCV 90.0 81.3 - 96.4 fL [facility] MCH 31.0 27.1 - 33.3 pg [facility] MCHC 34.5 32.3 - 35.7 g/dL [facility] RDW CV 13.4 11.1 - 14.9 % [facility] RDW SD 44.2 35.7 - 48.1 fL [facility] NRBC abs 0.00 0.00 - 0.01 K/cumm [facility] Blood 06/09/2022 7:57 AM CDT 06/09/2022 8:19 AM CDT Marcelina Lo NP LAB BLOOD ORDERABLES Final Re sult Performing Organization Address [facility] Co de Phone Number [facility] [place] [address] * POCT glucose (06/09/2022 7:55 AM CDT) Glucose, POC 155 70 - 199 mg/dL [facility] Blood 06/09/2022 7:55 AM CDT 06/09/2022 7:55 AM CDT Catherine Adams MD LAB POCT ORDERABLES - DEVIC E Final Result Performing Organization Address [facility] Co de Phone Number [facility] [place] [address] * (ABNORMAL) aPTT (06/09/2022 5:24 AM CDT) aPTT 66(H) 27 - 37 sec [facility] Comment: Interpretive Data Therapeutic heparin range: 60.0 - 94.0 seconds. Based on correlation with therapeutic heparin activity range of 0.3-0.7 Units/mL. Current interpretive data was last revised on 2020. Blood 06/09/2022 5:24 AM CDT 06/09/2022 5:53 AM CDT Narrative [facility] - 06/09/2022 6:02 AM CDT Draw STAT PTT 6 hrs after initiation of heparin infusion, draw STAT PTT 6 hours after each dose/rate change, and every 6 hours until 2 consecutive PTTs are within therapeutic range. Once two consecutive PTT's are therapeutic (60-94.9 seconds), then draw PTT every AM until heparin is discontinued. us Conrad Weston Chi, MD LAB BLOOD ORDERABLES Ann Marie l Result Performing Organization Address [facility] Co de Phone Number [facility] [place] [address] * (ABNORMAL) Blood gas, arterial (06/09/2022 5:24 AM CDT) pH, Art 7.44 7.35 - 7.45 [facility] PCO2, Arterial 38 35 - 45 mmHg [facility] PO2, Arterial 71(L) 83 - 108 mmHg [facility] HCO3 Art (Calculated) 26 20 - 30 mmol/L [facility] BE, art 2 mmol/L [facility] Comment: Interpretive Data No Reference Range Established Current Interpretive Data was last revised on 2017 O2 Sat Art (Measured) 94 90 - 95 % [facility] Blood 06/09/2022 5:24 AM CDT 06/09/2022 5:37 AM CDT us Marcelina Lo CHIEF AIRLINE RADIO OPERATOR LAB BLOOD ORDERABLES Final Re sult [facility] One [facility] Department [place] [address] * XR Chest 1 View (06/09/2022 4:30 AM CDT) Anatomical Region Laterality Modality Body, Chest N/A Computed Radiogr aphy 06/09/2022 10:4 2 AM CDT Impressions 06/09/2022 2:20 PM CDT The current study is compared with the prior radiograph dated 06/08/2022 First exam 06/09/2022 3:50 AM Left internal jugular central venous catheter terminates in the proximal superior vena cava. Enteric tube courses below diaphragm with tip not seen. Inferior approach [place] catheter has been retracted with the tip projecting over the main pulmonary artery. An Impella device is in place, unchanged. There is mild cardiomegaly, unchanged. There is moderate asymmetric left lung and right upper lobe pulmonary edema. Likely small left pleural effusion although the left costophrenic angle is partially off the [id number]. No right pleural effusion or pneumothorax. Second exam ??06/09/2022 7:57 AM The [place] catheter has been slightly advanced with tip projecting over the main pulmonary artery and directed towards the right pulmonary artery. Significant decrease in now mild pulmonary edema. Trace left pleural effusion. Otherwise no change. Dictated by: Dewey Matt M.D. The radiology attending physician has personally reviewed this study, and had reviewed and/or edited this written report and agrees with it. Electronically signed by: Wilma Haskins M.D. Narrative 06/09/2022 2:20 PM CDT Examination: 2 portable chests Chest one view portable Chest one view portable Procedure Note Wilma Haskins MD - 06/09/2022 Examination: 2 portable chests Chest one view portable Chest one view portable IMPRESSION: The current study is compared with the prior radiograph dated 06/08/2022 First exam 06/09/2022 3:50 AM Left internal jugular central venous catheter terminates in the proximal superior vena cava. Enteric tube courses below diaphragm with tip not seen. Inferior approach [place] catheter has been retracted with the tip projecting over the main pulmonary artery. An Impella device is in place, unchanged. There is mild cardiomegaly, unchanged. There is moderate asymmetric left lung and right upper lobe pulmonary edema. Likely small left pleural effusion although the left costophrenic angle is partially off the [id number]. No right pleural effusion or pneumothorax. Second exam 06/09/2022 7:57 AM The [place] catheter has been slightly advanced with tip projecting over the main pulmonary artery and directed towards the right pulmonary artery. Significant decrease in now mild pulmonary edema. Trace left pleural effusion. Otherwise no change. Dictated by: Dewey Matt M.D. The radiology attending physician has personally reviewed this study, and had reviewed and/or edited this written report and agrees with it. Electronically signed by: Wilma Haskins M.D. Catherine Adams MD IMG XR PROCEDURES Final Res ult * (ABNORMAL) Urinalysis, microscopic only (06/09/2022 4:08 AM CDT) WBC, ur 0-5 0 - 5 /HPF [facility] RBC, ur 6-10(A) 0 - 2 /HPF [facility] Hyaline casts, ur 1-5 0 - 10 /LPF [facility] Granular casts, ur 1-5(A) 0 - 0 /LPF [facility] Culture Reflex Comment Reflex conditions for urine culture (WBC >10) not met. [facility] Urine 06/09/2022 4:08 AM CDT 06/09/2022 4:16 AM CDT Catherine Adams MD LAB URINE ORDERABLES Final Result [facility] One [facility] Department [place] [address] * (ABNORMAL) Urinalysis reflex to microscopic and culture Urine (06/09/2022 4:08 AM CDT) Color, ur Yellow Yellow [facility] Clarity, ur Clear Clear [facility] Specific gravity, ur 1.018 1.003 - 1.030 [facility] pH, urine 5.5 [facility] Protein, ur ql 1+(A) Negative [facility] Glucose, ur ql 4+(A) Negative [facility] Ketones, ur Negative Negative [facility] Bilirubin, ur Negative Negative [facility] Blood, ur 2+(A) Negative [facility] Urobilinogen, ur <2.0 <2.0 mg/dL [facility] Nitrite, ur Negative Negative [facility] Leukocyte esterase, ur Negative Negative [facility] UA reflex comment Reflex to microscopic UA will be performed. [facility] Urine 06/09/2022 4:08 AM CDT 06/09/2022 4:16 AM CDT Narrative [facility] - 06/09/2022 4:35 AM CDT ?? Urine pH is affected by diet, medications, systemic acid-base disturbances, and renal tubular function. ??pH may affect urinary stone formation. ??For example, urine pH below 6.0 may help reduce the tendency for calcium phosphate stones and pH greater than 6.0 may reduce the tendency for uric acid stone formation. Source: [employer]. Last revised 08-31-2017 Catherine Adams MD LAB MICROBIOLOGY - GENERAL ORDERABLES Final Result Performing Organization Address [facility] Co de Phone Number [facility] [place] [address] * POCT glucose (06/09/2022 4:06 AM CDT) Glucose, POC 147 70 - 199 mg/dL [facility] Blood 06/09/2022 4:06 AM CDT 06/09/2022 4:06 AM CDT Catherine Adams MD LAB POCT ORDERABLES - DEVIC E Final Result Performing Organization Address [facility] de Phone Number [facility] [place] [address] * (ABNORMAL) Hemoglobin and hematocrit (06/08/2022 11:27 PM CDT) Hgb 7.5(L) 13.0 - 17.5 g/dL [facility] Hct 22.0(L) 38.9 - 50.3 % [facility] Blood 06/08/2022 11:2 7 PM CDT 06/08/2022 11:40 PM CDT Meme Castro MD LAB BLOOD ORDERABLES Final Result Performing Organization Address [facility] Co de Phone Number [facility] [place] [address] * (ABNORMAL) Hemoglobin total, pulmonary artery (06/08/2022 11:27 PM CDT) Hemoglobin total, PA 8.1(L) 13.0 - 17.5 g/dL [facility] Blood 06/08/2022 11:2 7 PM CDT 06/08/2022 11:36 PM CDT Marcelina Lo CHIEF AIRLINE RADIO OPERATOR LAB BLOOD ORDERABLES Final Re sult Performing Organization Address [facility] Co de Phone Number [facility] [place] [address] * Oxyhemoglobin, pulmonary artery (06/08/2022 11:27 PM CDT) Oxyhemoglobin, PA 57.4 % [facility] Comment: Interpretive Data No reference range established. Current interpretive data was last revised 2019. Blood 06/08/2022 11:2 7 PM CDT 06/08/2022 11:36 PM CDT Marcelina Lo CHIEF AIRLINE RADIO OPERATOR LAB BLOOD ORDERABLES Final Re sult Performing Organization Address [facility] de Phone Number [facility] [place] [address] * (ABNORMAL) aPTT (06/08/2022 11:27 PM CDT) aPTT 44(H) 27 - 37 sec [facility] Comment: Interpretive Data Therapeutic heparin range: 60.0 - 94.0 seconds. Based on correlation with therapeutic heparin activity range of 0.3-0.7 Units/mL. Current interpretive data was last revised on 2020. Blood 06/08/2022 11:2 7 PM CDT 06/09/2022 12:13 AM CDT Narrative ALESSANDRA MERGED WITH [facility] - 06/09/2022 12:22 AM CDT Draw STAT PTT 6 hrs after initiation of heparin infusion, draw STAT PTT 6 hours after each dose/rate change, and every 6 hours until 2 consecutive PTTs are within therapeutic range. Once two consecutive PTT's are therapeutic (60-94.9 seconds), then draw PTT every AM until heparin is discontinued. Conrad Weston Chi, MD LAB BLOOD ORDERABLES Ann Marie l Result Performing Organization Address [facility] Co de Phone Number [facility] [place] [address] * POCT glucose (06/08/2022 11:25 PM CDT) Glucose, POC 156 70 - 199 mg/dL [facility] Blood 06/08/2022 11:2 5 PM CDT 06/08/2022 11:25 PM CDT us Catherine Adams MD LAB POCT ORDERABLES - DEVIC E Final Result Performing Organization Address City/[facility] [place] [address] * Phosphorus (06/08/2022 8:08 PM CDT) [facility] Phosphorus, pl 3.7 2.3 - 4.5 mg/dL [facility] Blood 06/08/2022 8:08 PM CDT 06/08/2022 8:31 PM CDT us Catherine Adams MD LAB BLOOD ORDERABLES Final Result Performing Organization Address City/[facility]/ZIP Co de Phone Number [facility] Department [place] [address] * Magnesium (06/08/2022 8:08 PM CDT) [facility] Magnesium 2.4 1.4 - 2.5 mg/dL [facility] Blood 06/08/2022 8:08 PM CDT 06/08/2022 8:31 PM CDT us Catherine Adams MD LAB BLOOD ORDERABLES Final Result [facility] [place] [address] * (ABNORMAL) eGFR (06/08/2022 8:08 PM CDT) eGFR 14(L) 90 - 130 mL/min/1. 73 m2 [facility] Comment: Interpretive Data Reference Interval [...] interpretive data was last reviewed 2021. Blood 06/08/2022 8:08 PM CDT 06/08/2022 8:31 PM CDT us Conrad Weston Chi, MD LAB BLOOD ORDERABLES Ann Marie kramer Result [facility] [place] [address] * (ABNORMAL) Haptoglobin (06/08/2022 8:08 PM CDT) Haptoglobin 219.0(H) 30.0 - 200.0 mg/dL [facility] Blood 06/08/2022 8:08 PM CDT 06/08/2022 8:31 PM CDT us Catherine Adams MD LAB BLOOD ORDERABLES Final Result Performing Organization Address City/[facility]/ZIP Co de Phone Number [facility] Department [place] [address] * Lipase (06/08/2022 8:08 PM CDT) Pathologist [facility] Lipase 11 10 - 99 Units/L [facility] Blood 06/08/2022 8:08 PM CDT 06/08/2022 8:31 PM CDT Catherine Adams MD LAB BLOOD ORDERABLES Final Result Performing Organization Address [facility] de Phone Number [facility] Department [place] [address] * (ABNORMAL) Differential, auto (06/08/2022 8:08 PM CDT) [facility] Neutrophil abs 7.0(H) 1.7 - 6.5 K/cumm [facility] Imm gran abs 0.4(H) 0.0 - 0.1 K/cumm [facility] Lymphocyte abs 0.9 0.8 - 3.3 K/cumm [facility] Monocyte abs 0.9(H) 0.2 - 0.8 K/cumm [facility] Eosinophil abs 0.1 0.0 - 0.5 K/cumm [facility] Basophil abs 0.0 0.0 - 0.1 K/cumm [facility] Neutrophil pct 75.3 % [facility] Comment: Interpretive Data Percent cell count reference ranges are not reported, since discordance with absolute values may lead to misinterpretation of CBC data. Current Interpretive Data was last revised on 2017. Imm gran pct 3.8 % [facility] Comment: Interpretive Data Percent cell count reference ranges are not reported, since discordance with absolute values may lead to misinterpretation of CBC data. Current Interpretive Data was last revised on 2017. Lymphocyte pct 10.0 % [facility] Comment: Interpretive Data Percent cell count reference ranges are not reported, since discordance with absolute values may lead to misinterpretation of CBC data. Current Interpretive Data was last revised on 2017. Monocyte pct 9.8 % [facility] Comment: Interpretive Data Percent cell count reference ranges are not reported, since discordance with absolute values may lead to misinterpretation of CBC data. Current Interpretive Data was last revised on 2017. Eosinophil pct 1.0 % [facility] Comment: Interpretive Data Percent cell count reference ranges are not reported, since discordance with absolute values may lead to misinterpretation of CBC data. Current Interpretive Data was last revised on 2017. Basophil pct 0.1 % [facility] Comment: Interpretive Data Percent cell count reference ranges are not reported, since discordance with absolute values may lead to misinterpretation of CBC data. Current Interpretive Data was last revised on 2017. Blood 06/08/2022 8:08 PM CDT 06/08/2022 8:30 PM CDT Catherine Adams MD LAB BLOOD ORDERABLES Final Result [facility] Department [place] [address] * (ABNORMAL) Blood gas, arterial (06/08/2022 8:08 PM CDT) pH, Art 7.44 7.35 - 7.45 [facility] PCO2, Arterial 36 35 - 45 mmHg [facility] PO2, Arterial 140(H) 83 - 108 mmHg [facility] HCO3 Art (Calculated) 25 20 - 30 mmol/L [facility] BE, art 0 mmol/L [facility] Comment: Interpretive Data No Reference Range Established Current Interpretive Data was last revised on 2017 O2 Sat Art (Measured) 99(H) 90 - 95 % [facility] Blood 06/08/2022 8:08 PM CDT 06/08/2022 8:15 PM CDT Marcelina Lo CHIEF AIRLINE RADIO OPERATOR LAB BLOOD ORDERABLES Final Re sult Performing Organization Address City/[facility] Co de Phone Number [facility] [place] [address] * (ABNORMAL) Hemoglobin total, pulmonary artery (06/08/2022 8:08 PM CDT) [facility] Hemoglobin total, PA 8.7(L) 13.0 - 17.5 g/dL [facility] Blood 06/08/2022 8:08 PM CDT 06/08/2022 8:15 PM CDT Marcelina Lo CHIEF AIRLINE RADIO OPERATOR LAB BLOOD ORDERABLES Final Re sult Performing Organization Address [facility] Co de Phone Number [facility] [place] [address] * Oxyhemoglobin, pulmonary artery (06/08/2022 8:08 PM CDT) [facility] Oxyhemoglobin, PA 69.9 % [facility] Comment: Interpretive Data No reference range established. Current interpretive data was last revised 2019. Blood 06/08/2022 8:08 PM CDT 06/08/2022 8:15 PM CDT Marcelina Lo CHIEF AIRLINE RADIO OPERATOR LAB BLOOD ORDERABLES Final Re sult Performing Organization Address City/[facility] Co de Phone Number [facility] [place] [address] * Respiratory pathogen panel Nasopharyngeal (06/08/2022 8:08 PM CDT) [facility] Influenza A RNA Not Detected Not Detected [facility] Influenza B RNA Not Detected Not Detected [facility] RSV RNA Not Detected Not Detected [facility] COVID-19 RNA Not Detected Not Detected [facility] Coronavirus 229E RNA Not Detected Not Detected [facility] Coronavirus HKU1 RNA Not Detected Not Detected [facility] Coronavirus NL63 RNA Not Detected Not Detected [facility] Coronavirus OC43 RNA Not Detected Not Detected [facility] Adenovirus DNA Not Detected Not Detected [facility] Metapneumovirus RNA Not Detected Not Detected [facility] Rhinovirus/Enterov irus RNA Not Detected Not Detected [facility] Parainfluenza 1 RNA Not Detected Not Detected [facility] Parainfluenza 2 RNA Not Detected Not Detected [facility] Parainfluenza 3 RNA Not Detected Not Detected [facility] Parainfluenza 4 RNA Not Detected Not Detected [facility] B. pertussis DNA Not Detected Not Detected [facility] B. parapertussis DNA Not Detected Not Detected [facility] C. pneumoniae DNA Not Detected Not Detected [facility] M. pneumoniae DNA Not Detected Not Detected [facility] Nasopharyngeal 06/08/2022 8: 08 PM CDT 06/08/2022 9:19 PM CDT Narrative [facility] - 06/08/2022 10:13 PM CDT Previously covid negative Is the Patient experiencing symptoms consistent with COVID?->Unknown Reason for testing?->Patient history unknown Surveillance testing for transplant patient?->No ??Interpretive Data The [employer] FilmArray Respiratory Panel (RP2.1) assay is a multiplexed real-time PCR based nucleic acid test capable of simultaneous qualitative detection and identification of multiple respiratory viral and bacterial nucleic acids, including SARS Coronavirus 2 (the causative agent of COVID-19). The following bacteria, viruses and virus subtypes can be identified using the FilmArray RP2.1 assay: Bordetella pertussis, Bordetella parapertussis, Chlamydia pneumoniae, Mycoplasma pneumoniae, Adenovirus, SARS Coronavirus 2, seasonal coronaviruses (Coronavirus HKU1, Coronavirus NL63, Coronavirus 229E, and Coronavirus OC43), Influenza A, Influenza A subtype H1, Influenza A subtype H3, Influenza A subtype 2009 H1, Influenza B, Metapneumovirus, Parainfluenza 1, Parainfluenza 2, Parainfluenza 3, Parainfluenza 4, RSV, Rhinovirus/Enterovirus. Due to the genetic similarity between human Rhinovirus and Enterovirus, the FilmArray RP2.1 assay cannot reliably differentiate them. Coronavirus OC43 may cross-react with some isolates of Coronavirus HKU1. ??A dual positive result may be due to cross-reactivity or may indicate a co-infection. The detection and identification of specific viral and bacterial nucleic acids from individuals exhibiting signs and symptoms of a respiratory infection aids in the diagnosis of respiratory infection if used in conjunction with other clinical and epidemiological information. ??The results of this test should not be used as the sole basis for diagnosis, treatment, or other management decisions. ??Negative results in the setting of a respiratory illness may be due to infection with pathogens that are not detected by this test. ??Positive results do not rule out infection/co-infection with other organisms. ??The agent(s) detected by the FilmArray RP2.1 may not be the definite cause of disease. ??Additional testing (lab, imaging, etc.) may be necessary when evaluating a patient with possible respiratory tract infection. The FilmArray RP2.1 assay has FDA clearance for testing of CHIEF AIRLINE RADIO OPERATOR swabs. ??The performance of additional specimen types has been assessed by the performing laboratory. ??The performance characteristics of this assay have been determined by [facility] Infectious Disease [facility]. Current interpretive data was last revised on 22. us Catherine Adams MD LAB MICROBIOLOGY - GENERAL ORDERABLES Final Result Performing Organization Address City/[facility]/ZIP Co de Phone Number [facility] Department [place] [address] * Beta-hydroxybutyrate (06/08/2022 8:08 PM CDT) Beta-Hydroxybut yrate 0.3 0.0 - 0.5 mmol/L [facility] Blood 06/08/2022 8:08 PM CDT 06/08/2022 8:15 PM CDT us Marcelina Lo CHIEF AIRLINE RADIO OPERATOR LAB BLOOD ORDERABLES Final Re sult Performing Organization Address City/[facility]/ZIP Co de Phone Number [facility] Department [place] [address] * (ABNORMAL) Lactate dehydrogenase (LD) (06/08/2022 8:08 PM CDT) Lactate dehydrogenase (LDH) 444(H) 100 - 250 Units/L [facility] Blood 06/08/2022 8:08 PM CDT 06/08/2022 8:31 PM CDT Catherine Adams MD LAB BLOOD ORDERABLES Final Result [facility] Department [place] [address] * (ABNORMAL) Comprehensive metabolic panel (06/08/2022 8:08 PM CDT) Pathologist [facility] Sodium 136 135 - 145 mmol/L [facility] Potassium, pl 4.3 3.3 - 4.9 mmol/L [facility] Chloride 100 97 - 110 mmol/L [facility] CO2 27 22 - 32 mmol/L [facility] Anion gap 9 2 - 15 mmol/L [facility] BUN 42(H) 8 - 25 mg/dL [facility] Creatinine 4.73(H) 0.80 - 1.30 mg/dL [facility] Glucose 146 70 - 199 mg/dL [facility] Comment: Interpretive Data Fasting glucose >/= [...] classification and Diagnosis of Diabetes Diabetes Care 2017;40 (Suppl. 1):S11. Current interpretive data was last revised 2017. Calcium 8.4(L) 8.5 - 10.3 mg/dL [facility] Bilirubin, total 0.5 0.1 - 1.2 mg/dL [facility] Protein, pl 5.8(L) 6.5 - 8.5 g/dL [facility] Albumin 2.8(L) 3.5 - 5.0 g/dL [facility] Alk phos 153(H) 40 - 130 Units/L [facility] ALT 40 7 - 55 Units/L [facility] AST 137(H) 10 - 50 Units/L [facility] Blood 06/08/2022 8:08 PM CDT 06/08/2022 8:31 PM CDT us Conrad Weston Chi, MD LAB BLOOD ORDERABLES Ann Marie l Result [facility] Department [place] [address] * (ABNORMAL) CBC with auto differential (06/08/2022 8:08 PM CDT) [facility] WBC 9.3 3.8 - 9.9 K/cumm [facility] Hgb 6.9(L) 13.0 - 17.5 g/dL [facility] Hct 19.9(L) 38.9 - 50.3 % [facility] Plt 207 150 - 400 K/cumm [facility] MPV 11.2 9.1 - 12.3 fL [facility] RBC 2.20(L) 4.30 - 5.80 M/cumm [facility] MCV 90.5 81.3 - 96.4 fL [facility] MCH 31.4 27.1 - 33.3 pg [facility] MCHC 34.7 32.3 - 35.7 g/dL [facility] RDW CV 13.5 11.1 - 14.9 % [facility] RDW SD 44.4 35.7 - 48.1 fL [facility] NRBC abs 0.00 0.00 - 0.01 K/cumm [facility] Blood 06/08/2022 8:08 PM CDT 06/08/2022 8:30 PM CDT Marcelina Lo NP LAB BLOOD ORDERABLES [place] [address] * POCT glucose (06/08/2022 8:04 PM CDT) Glucose, POC 153 70 - 199 mg/dL [facility] Blood 06/08/2022 8:04 PM CDT 06/08/2022 8:04 PM CDT Catherine Adams MD LAB POCT ORDERABLES - [place] [address] * POCT glucose (06/08/2022 8:03 PM CDT) Glucose, POC 162 70 - 199 mg/dL [facility] Blood 06/08/2022 8:03 PM CDT 06/08/2022 8:03 PM CDT Catherine Adams MD LAB POCT ORDERABLES - [place] [address] * POCT glucose (06/08/2022 4:20 PM CDT) Glucose, POC 135 70 - 199 mg/dL [facility] Blood 06/08/2022 4:20 PM CDT 06/08/2022 4:20 PM CDT Catherine Adams MD LAB POCT ORDERABLES - DEVIC E Final Result [facility] [place] [address] * Lactate, whole blood (06/08/2022 4:20 PM CDT) Pathologist [facility] Lactate, bld 1.2 0.7 - 2.0 mmol/L [facility] Blood 06/08/2022 4:20 PM CDT 06/08/2022 4:44 PM CDT Marcelina Lo CHIEF AIRLINE RADIO OPERATOR LAB BLOOD ORDERABLES Final Re sult Performing Organization Address [facility] Co de Phone Number [facility] Department [place] [address] * (ABNORMAL) aPTT (06/08/2022 4:20 PM CDT) [facility] aPTT 25(L) 27 - 37 sec [facility] Comment: Interpretive Data Therapeutic heparin range: 60.0 - 94.0 seconds. Based on correlation with therapeutic heparin activity range of 0.3-0.7 Units/mL. Current interpretive data was last revised on 2020. Blood 06/08/2022 4:20 PM CDT 06/08/2022 4:56 PM CDT Narrative [facility] - 06/08/2022 5:12 PM CDT Draw STAT PTT 6 hrs after initiation of heparin infusion, draw STAT PTT 6 hours after each dose/rate change, and every 6 hours until 2 consecutive PTTs are within therapeutic range. Once two consecutive PTT's are therapeutic (60-94.9 seconds), then draw PTT every AM until heparin is discontinued. Conrad Weston Chi, MD LAB BLOOD ORDERABLES Ann Marie l Result Performing Organization Address [facility] Co de Phone Number [facility] Department [place] [address] * (ABNORMAL) Hemoglobin total, pulmonary artery (06/08/2022 4:20 PM CDT) [facility] Hemoglobin total, PA 8.4(L) 13.0 - 17.5 g/dL [facility] Blood 06/08/2022 4:20 PM CDT 06/08/2022 4:44 PM CDT Marcelina Lo CHIEF AIRLINE RADIO OPERATOR LAB BLOOD ORDERABLES Final Re sult Performing Organization Address [facility] Co de Phone Number [facility] [place] [address] * (ABNORMAL) Blood gas, arterial (06/08/2022 4:20 PM CDT) pH, Art 7.44 7.35 - 7.45 [facility] PCO2, Arterial 36 35 - 45 mmHg [facility] PO2, Arterial 156(H) 83 - 108 mmHg [facility] HCO3 Art (Calculated) 25 20 - 30 mmol/L [facility] BE, art 0 mmol/L [facility] Comment: Interpretive Data No Reference Range Established Current Interpretive Data was last revised on 2017 O2 Sat Art (Measured) 98(H) 90 - 95 % [facility] Blood 06/08/2022 4:20 PM CDT 06/08/2022 4:44 PM CDT Marcelina Lo CHIEF AIRLINE RADIO OPERATOR LAB BLOOD ORDERABLES Final Re sult Performing Organization Address [facility] de Phone Number [facility] [place] [address] * Oxyhemoglobin, pulmonary artery (06/08/2022 4:20 PM CDT) Pathologist [facility] Oxyhemoglobin, PA 63.1 % [facility] Comment: Interpretive Data No reference range established. Current interpretive data was last revised 2019. Blood 06/08/2022 4:20 PM CDT 06/08/2022 4:44 PM CDT Marcelina Lo CHIEF AIRLINE RADIO OPERATOR LAB BLOOD ORDERABLES Final Re sult Performing Organization Address [facility] Co de Phone Number [facility] [place] [address] * TRANSTHORACIC ECHO (TTE) COMPLETE W DOPPLER/CF W CONTRAST (06/08/2022 2:50 PM CDT) LV EF 56 % CARDIOREPORT Anatomical Region Laterality Modality Ultrasound 06/08/2022 12:3 0 PM CDT Narrative 06/08/2022 4:00 PM CDT Patient name: Adelia Garvin Date of test: 06/08/2022 Type of test: TTE w/Doppler Hospital #: 0 Date of : 1970 () Senior Art Director: Elli Larsen RDCS Referring Physician: CATHERINE ADAMS MD Contrast Agent: Contrast Administered by: Supervised/Interpreted by: Baldomero Foster MD Diagnosis: Location: [facility] 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 Mitral Annulus: Normal AV Structure: tricuspid and is moderately thickened calcified, ?? AV Motion: Normal Aotic root: Normal, ?TM: Normal, ?? PV: Normal Valvular Vegetations: none seen, ?Mass/Thrombi: none seen RA: Normal Measurements: ?M-Mode ?Normal ? Aotic Root: ? <3.8 ? LA: ? <4.0 ? RV: ? <2.8 ? LV(ED): ? <5.7 ? LV(ES): ? Variable ?2D Linear Normal ? Aotic Root: 4.0 cm ?<4.0 ? Ao Indexed: 1.6 cm/M2 <2.0 ? LA: ? <4.0 ? RV: ? 5.0 cm ?<4.2 ? LV(ED): ? 6.1 cm ?<5.9 ? LV(ES): ? 3.9 cm ?<4.0 ?2D Vol. ?? Normal ?Indexed ?? Indexed Normal RA: ? 54.0 ml ? 21.6 ml/M2 ?11-39 ? LA: ? 88.0 ml ? 35.1 ml/M2 ?16-34 ? RV: ? <12.7 ? LV(ED): ? 177.0 ml ??62-150 ?70.7 ml/M2 ?<75 ? LV(ES): ? 77.0 ml ?? 21-61 ? 30.7 ml/M2 ?<32 ?3D Vol. ? Indexed Normal LV(ED): ?<75 ? LV(ES): ?<32 ? LV EF: 56 % ?? (Normal: >=52%) ?? LV Septum: 1.5 cm ?(Normal: <1.0 cm) Wall Motion Scoring (1=Normal 2=Hypo 3=Akinetic 4=Dyskin./Aneurysm 0=Not visualized) Parasternal Long [place]:MAS=2 BAS=1 MIL=1 IVETH=1 Parasternal Short [place]:MAS=2 MIS=1 [place]=1 MIL=1 MAL=2 MA=1 Apical 4 Chambers:=1 MIS=1 BIS=1 BAL=1 MAL=2 AL=2 AC=2 Apical 2 Chambers:AI=1 [place]=1 BI=1 BA=1 MA=1 AA=1 AC=2 LV Global Longitudinal Strain: RV Global Longitudinal Strain: LV Function: Normal LV Ejection Fraction, (EF=52-72%) RV Function: Normal Septal Motion: Normal Pericardial Effusion: none seen Atrial Septum: Normal DOPPLER/COLOR FLOW DOPPLER RESULTS: Diastolic Function: Impaired Relaxation Tricuspid Valve: mild TV regurgitation Pulmonic Valve: AV Regurgitation: Mild to mod ??AR AV Stenosis: AV Area: ??cm2 AV Pressure Gradient (mmHg): Mean: 0, Peak:0 MV Regurgitation: No MR seen MV Stenosis: ??no MS MV Area: ??cm2 MV Pressure Gradient (mmHg): Mean: 0 MV ERO: ??cm Regurg. Vol.: ??ml/beat Regurg. Frac.: ??% PA Pressure: ??mmHg DOPPLER/COLOR FOLOW DOPPLER COMMENTS: Mild AR, No MR seen, no , ??no MS, mild TV regurgitation, . Diastolic function: Impaired Relaxation ??TAPSE 1.8 cm SUMMARY: s/p Impella placement across the aortic valve into the LV cavity. HR 48 bpm. Pacer wire in the RA and RV. LV cavity size is moderately dilated Eccentric LV hypertrophy. Mild hypokientsis in anterior wall and anterior septem sugegsting CAD/[place] in the LAD territory. LVEF ??is in normal range 56%. Impaired LV relaxation. LA is mildly dilated. Mildly dilated RV cavity size with normal RV systolic function. Mildly dilated RA size. Normal Inferior vena cava. Normal aortic root. Mils to mod AR. Trace TR. PASP= 23 mm Hg +RAP. Confirmed on ??06/08/2022 - 16:00:43 by Baldomero Foster MD By signing this report, the attending residential lawn specialist certifies that he or she has personally supervised and interpreted the echocardiogram and has reviewed and or edited and agrees with the written comments contained within the report. 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 Normal Indexed Indexed Normal RA: 54.0 ml 21.6 ml/M2 11-39 LA: 88.0 ml 35.1 ml/M2 16-34 RV: <12.7 LV(ED): 177.0 ml 62-150 70.7 ml/M2 <75 LV(ES): 77.0 ml 21-61 30.7 ml/M2 <32 3D Vol. Indexed Normal LV(ED): <75 LV(ES): <32 LV EF: 56 % (Normal: >=52%) LV Septum: 1.5 cm (Normal: <1.0 cm) Wall Motion Scoring (1=Normal 2=Hypo 3=Akinetic 4=Dyskin./Aneurysm 0=Not visualized) Parasternal Long [place]:MAS=2 BAS=1 MIL=1 IVETH=1 Parasternal Short [place]:MAS=2 MIS=1 [place]=1 MIL=1 MAL=2 MA=1 Apical 4 Chambers:=1 MIS=1 BIS=1 BAL=1 MAL=2 AL=2 AC=2 Apical 2 Chambers:AI=1 [place]=1 BI=1 BA=1 MA=1 AA=1 AC=2 LV Global Longitudinal Strain: RV Global Longitudinal Strain: LV Function: Normal LV Ejection Fraction, (EF=52-72%) RV Function: Normal Septal Motion: Normal Pericardial Effusion: none seen Atrial Septum: Normal DOPPLER/COLOR FLOW DOPPLER RESULTS: Diastolic Function: Impaired Relaxation Tricuspid Valve: mild TV regurgitation Pulmonic Valve: AV Regurgitation: Mild to mod AR AV Stenosis: AV Area: cm2 AV Pressure Gradient (mmHg): Mean: 0, Peak:0 MV Regurgitation: No MR seen MV Stenosis: no MS MV Area: cm2 MV Pressure Gradient (mmHg): Mean: 0 MV ERO: cm Regurg. Vol.: ml/beat Regurg. Frac.: % PA Pressure: mmHg DOPPLER/COLOR FOLOW DOPPLER COMMENTS: Mild AR, No MR seen, no , no MS, mild TV regurgitation, . Diastolic function: Impaired Relaxation TAPSE 1.8 cm SUMMARY: s/p Impella placement across the aortic valve into the LV cavity. HR 48 bpm. Pacer wire in the RA and RV. LV cavity size is moderately dilated Eccentric LV hypertrophy. Mild hypokientsis in anterior wall and anterior septem sugegsting CAD/[place] in the LAD territory. LVEF is in normal range 56%. Impaired LV relaxation. LA is mildly dilated. Mildly dilated RV cavity size with normal RV systolic function. Mildly dilated RA size. Normal Inferior vena cava. Normal aortic root. Mils to mod AR. Trace TR. PASP= 23 mm Hg +RAP. Confirmed on 06/08/2022 - 16:00:43 by Baldomero Foster MD By signing this report, the attending residential lawn specialist certifies that he or she has personally supervised and interpreted the echocardiogram and has reviewed and or edited and agrees with the written comments contained within the report. us Catherine Adams MD CV ECHO PROCEDURES Final Re sult * XR Chest 1 View (06/08/2022 2:02 PM CDT) Anatomical Region Laterality Modality Body, Chest N/A Computed Radiogr aphy 06/08/2022 2:36 PM CDT Impressions 06/08/2022 2:52 PM CDT The current study is compared with the prior radiograph dated 06/08/2022 5:33 AM. Endotracheal tube is present with tip approximately 4 cm above the boni. There is a left internal jugular central venous catheter with tip overlying the confluence of the brachiocephalic veins and superior vena cava. There is an inferior approach [place]-Liv catheter with tip overlying the right main pulmonary artery. An Impella device is present. A gastric tube courses below the inferior margin of the study. The inferior mediastinum and the entire left hemidiaphragm are excluded from the [id number]. The imaged cardiomediastinal silhouette appears stable. There are unchanged left greater than right diffuse interstitial and airspace opacities compatible with asymmetric moderate pulmonary edema. There is likely persistent left basilar atelectasis. No right pleural effusion. The left costophrenic angle is excluded. No pneumothorax. Dictated by: Jersey Morales MD The radiology attending physician has personally reviewed this study, and had reviewed and/or edited this written report and agrees with it. Electronically signed by: Pete Wilkins M.D. Narrative 06/08/2022 2:52 PM CDT EXAMINATION: 1 view chest radiograph Procedure Note Pete Wilkins MD - 06/08/2022 EXAMINATION: 1 view chest radiograph IMPRESSION: The current study is compared with the prior radiograph dated 06/08/2022 5:33 AM. Endotracheal tube is present with tip approximately 4 cm above the boni. There is a left internal jugular central venous catheter with tip overlying the confluence of the brachiocephalic veins and superior vena cava. There is an inferior approach [place]-Liv catheter with tip overlying the right main pulmonary artery. An Impella device is present. A gastric tube courses below the inferior margin of the study. The inferior mediastinum and the entire left hemidiaphragm are excluded from the [id number]. The imaged cardiomediastinal silhouette appears stable. There are unchanged left greater than right diffuse interstitial and airspace opacities compatible with asymmetric moderate pulmonary edema. There is likely persistent left basilar atelectasis. No right pleural effusion. The left costophrenic angle is excluded. No pneumothorax. Dictated by: Jersey Morales MD The radiology attending physician has personally reviewed this study, and had reviewed and/or edited this written report and agrees with it. Electronically signed by: Pete Wilkins M.D. Catherine Adams MD IMG XR PROCEDURES Final Res ult * Potassium, whole blood (06/08/2022 11:49 AM CDT) [facility] Potassium, bld 4.1 3.3 - 4.9 mmol/L [facility] Blood 06/08/2022 11:4 9 AM CDT 06/08/2022 12:18 PM CDT Marcelina Lo CHIEF AIRLINE RADIO OPERATOR LAB BLOOD ORDERABLES Final Re sult Performing Organization Address [facility] Co de Phone Number [facility] [place] [address] * (ABNORMAL) Hemoglobin total, pulmonary artery (06/08/2022 11:49 AM CDT) Hemoglobin total, PA 8.4(L) 13.0 - 17.5 g/dL [facility] Blood 06/08/2022 11:4 9 AM CDT 06/08/2022 12:18 PM CDT Marcelina Lo CHIEF AIRLINE RADIO OPERATOR LAB BLOOD ORDERABLES Final Re sult Performing Organization Address [facility] de Phone Number [facility] [place] [address] * Oxyhemoglobin, pulmonary artery (06/08/2022 11:49 AM CDT) Oxyhemoglobin, PA 63.8 % [facility] Comment: Interpretive Data No reference range established. Current interpretive data was last revised 2019. Blood 06/08/2022 11:4 9 AM CDT 06/08/2022 12:18 PM CDT Marcelina Lo CHIEF AIRLINE RADIO OPERATOR LAB BLOOD ORDERABLES Final Re sult Performing Organization Address [facility] Co de Phone Number [facility] [place] [address] * POCT glucose (06/08/2022 11:46 AM CDT) Glucose, POC 140 70 - 199 mg/dL [facility] Blood 06/08/2022 11:4 6 AM CDT 06/08/2022 11:46 AM CDT Catherine Adams MD LAB POCT ORDERABLES - DEVIC E Final Result Performing Organization Address [facility] Co de Phone Number [facility] Department [place] [address] * (ABNORMAL) Blood gas, arterial (06/08/2022 10:44 AM CDT) pH, Art 7.44 7.35 - 7.45 [facility] PCO2, Arterial 34(L) 35 - 45 mmHg [facility] PO2, Arterial 108 83 - 108 mmHg [facility] HCO3 Art (Calculated) 24 20 - 30 mmol/L [facility] BE, art 0 mmol/L [facility] Comment: Interpretive Data No Reference Range Established Current Interpretive Data was last revised on 2017 O2 Sat Art (Measured) 98(H) 90 - 95 % [facility] Blood 06/08/2022 10:4 4 AM CDT 06/08/2022 10:58 AM CDT us Marcelina Lo NP LAB BLOOD ORDERABLES Final Re sult Performing Organization Address City/[facility]/ZIP Co de Phone Number [facility] Department [place] [address] * POCT glucose (06/08/2022 8:31 AM CDT) Glucose, POC 160 70 - 199 mg/dL [facility] Blood 06/08/2022 8:31 AM CDT 06/08/2022 8:31 AM CDT us Catherine Adams MD LAB POCT ORDERABLES - DEVIC E Final Result [facility] [place] [address] * (ABNORMAL) Blood gas, arterial (06/08/2022 7:57 AM CDT) pH, Art 7.40 7.35 - 7.45 [facility] PCO2, Arterial 38 35 - 45 mmHg [facility] PO2, Arterial 99 83 - 108 mmHg [facility] HCO3 Art (Calculated) 25 20 - 30 mmol/L [facility] BE, art 0 mmol/L [facility] Comment: Interpretive Data No Reference Range Established Current Interpretive Data was last revised on 2017 O2 Sat Art (Measured) 97(H) 90 - 95 % [facility] Blood 06/08/2022 7:57 AM CDT 06/08/2022 8:22 AM CDT Marcelina Lo CHIEF AIRLINE RADIO OPERATOR LAB BLOOD ORDERABLES Final Re sult Performing Organization Address City/[facility] Co de Phone Number [facility] [place] [address] * (ABNORMAL) Hemoglobin total, pulmonary artery (06/08/2022 7:57 AM CDT) Hemoglobin total, PA 8.8(L) 13.0 - 17.5 g/dL [facility] Blood 06/08/2022 7:57 AM CDT 06/08/2022 8:22 AM CDT Marcelina Lo CHIEF AIRLINE RADIO OPERATOR LAB BLOOD ORDERABLES Final Re sult Performing Organization Address [facility] Co de Phone Number [facility] [place] [address] * Oxyhemoglobin, pulmonary artery (06/08/2022 7:57 AM CDT) Oxyhemoglobin, PA 65.7 % [facility] Comment: Interpretive Data No reference range established. Current interpretive data was last revised 2019. Blood 06/08/2022 7:57 AM CDT 06/08/2022 8:22 AM CDT us Marcelina Lo CHIEF AIRLINE RADIO OPERATOR LAB BLOOD ORDERABLES Final Re sult Performing Organization Address City/[facility]/ZIP Co de Phone Number [facility] Department [place] [address] * X-ray chest 1 view - Portable (06/08/2022 6:40 AM CDT) Anatomical Region Laterality Modality Body, Chest N/A Computed Radiogr aphy 06/08/2022 9:34 AM CDT Impressions 06/08/2022 9:59 AM CDT 06/07/2022 5:56 PM: The current study is compared with the prior radiograph dated 06/06/2022 4:27 AM. Interval placement of an endotracheal tube with tip approximately 7 cm above the boni. Interval placement of an Impella device. There is an inferior approach [place]Liv catheter with tip overlying the proximal right pulmonary artery. There is also a left internal jugular central venous catheter with tip overlying the superior vena cava. The cardiomediastinal silhouette is stable. Improved bilateral diffuse interstitial opacities, compatible with improving moderate pulmonary edema. Increasing consolidation at the left lung apex may represent an area of more focal edema. No definite pleural effusion. No pneumothorax. 06/08/2022 5:33 AM: Comparison is made to the above dictated report. The previously described focal consolidation of the left lung apex has improved. New/increased opacification of the retrocardiac region likely represents moderate left basilar atelectasis. Otherwise no interval change. Dictated by: Jersey Morales MD The radiology attending physician has personally reviewed this study, and had reviewed and/or edited this written report and agrees with it. Electronically signed by: John Bruno M.D. Narrative 06/08/2022 9:59 AM CDT EXAMINATION: 1) 1 view chest radiograph 2) 1 view chest radiograph Procedure Note John Bruno MD - 06/08/2022 EXAMINATION: 1) 1 view chest radiograph 2) 1 view chest radiograph IMPRESSION: 06/07/2022 5:56 PM: The current study is compared with the prior radiograph dated 06/06/2022 4:27 AM. Interval placement of an endotracheal tube with tip approximately 7 cm above the boni. Interval placement of an Impella device. There is an inferior approach [place]Liv catheter with tip overlying the proximal right pulmonary artery. There is also a left internal jugular central venous catheter with tip overlying the superior vena cava. The cardiomediastinal silhouette is stable. Improved bilateral diffuse interstitial opacities, compatible with improving moderate pulmonary edema. Increasing consolidation at the left lung apex may represent an area of more focal edema. No definite pleural effusion. No pneumothorax. 06/08/2022 5:33 AM: Comparison is made to the above dictated report. The previously described focal consolidation of the left lung apex has improved. New/increased opacification of the retrocardiac region likely represents moderate left basilar atelectasis. Otherwise no interval change. Dictated by: Jersey Morales MD The radiology attending physician has personally reviewed this study, and had reviewed and/or edited this written report and agrees with it. Electronically signed by: John Bruno M.D. us Catherine Adams MD IMG XR PROCEDURES Final Res ult * POCT glucose (06/08/2022 6:29 AM CDT) Glucose, POC 157 70 - 199 mg/dL [facility] Blood 06/08/2022 6:29 AM CDT 06/08/2022 6:29 AM CDT us Catherine Adams MD LAB POCT ORDERABLES - DEVIC E Final Result Performing Organization Address [facility]/ZIP Co de Phone Number [facility] Department [place] [address] * POCT glucose (06/08/2022 5:26 AM CDT) Glucose, POC 121 70 - 199 mg/dL [facility] Blood 06/08/2022 5:26 AM CDT 06/08/2022 5:26 AM CDT us Catherine Adams MD LAB POCT ORDERABLES - DEVIC E Final Result Performing Organization Address [facility] Co de Phone Number [facility] Department [place] [address] * POCT glucose (06/08/2022 4:16 AM CDT) Pathologist [facility] Glucose, POC 111 70 - 199 mg/dL [facility] Blood 06/08/2022 4:16 AM CDT 06/08/2022 4:16 AM CDT Catherine Adams MD LAB POCT ORDERABLES - DEVIC E Final Result [facility] Department [place] [address] * (ABNORMAL) eGFR (06/08/2022 4:12 AM CDT) [facility] eGFR 8(L) 90 - 130 mL/min/1. 73 m2 [facility] Comment: Interpretive Data Reference Interval [...] interpretive data was last reviewed 2021. Blood 06/08/2022 4:12 AM CDT 06/08/2022 4:38 AM CDT Catherine Adams MD LAB BLOOD ORDERABLES Final Result Performing Organization Address [facility] de Phone Number [facility] [place] [address] * (ABNORMAL) Hemoglobin total, pulmonary artery (06/08/2022 4:12 AM CDT) Hemoglobin total, PA 8.6(L) 13.0 - 17.5 g/dL [facility] Blood 06/08/2022 4:12 AM CDT 06/08/2022 4:30 AM CDT Marcelina Lo CHIEF AIRLINE RADIO OPERATOR LAB BLOOD ORDERABLES Final Re sult Performing Organization Address [facility] de Phone Number [facility] [place] [address] * (ABNORMAL) Blood gas, arterial (06/08/2022 4:12 AM CDT) pH, Art 7.41 7.35 - 7.45 [facility] PCO2, Arterial 37 35 - 45 mmHg [facility] PO2, Arterial 57(L) 83 - 108 mmHg [facility] HCO3 Art (Calculated) 24 20 - 30 mmol/L [facility] BE, art -1 mmol/L [facility] Comment: Interpretive Data No Reference Range Established Current Interpretive Data was last revised on 2017 O2 Sat Art (Measured) 88(L) 90 - 95 % [facility] Blood 06/08/2022 4:12 AM CDT 06/08/2022 4:30 AM CDT Marcelina Lo CHIEF AIRLINE RADIO OPERATOR LAB BLOOD ORDERABLES Final Re sult Performing Organization Address [facility] de Phone Number [facility] [place] [address] * Oxyhemoglobin, pulmonary artery (06/08/2022 4:12 AM CDT) [facility] Oxyhemoglobin, PA 66.9 % [facility] Comment: Interpretive Data No reference range established. Current interpretive data was last revised 2019. Blood 06/08/2022 4:12 AM CDT 06/08/2022 4:30 AM CDT us Marcelina Lo NP LAB BLOOD ORDERABLES Final Re sult Performing Organization Address City/[facility]/ZIP Co de Phone Number [facility] [place] [address] * Magnesium (06/08/2022 4:12 AM CDT) [facility] Magnesium 2.3 1.4 - 2.5 mg/dL [facility] Blood 06/08/2022 4:12 AM CDT 06/08/2022 4:38 AM CDT Catherine Adams MD LAB BLOOD ORDERABLES Final Result Performing Organization Address City/[facility]/ZIP Co de Phone Number [facility] [place] [address] * (ABNORMAL) Basic metabolic panel (06/08/2022 4:12 AM CDT) [facility] Sodium 135 135 - 145 mmol/L [facility] Potassium, pl 4.0 3.3 - 4.9 mmol/L [facility] Chloride 99 97 - 110 mmol/L [facility] CO2 26 22 - 32 mmol/L [facility] Anion gap 10 2 - 15 mmol/L [facility] BUN 67(H) 8 - 25 mg/dL [facility] Creatinine 7.65(H) 0.80 - 1.30 mg/dL [facility] Glucose 109 70 - 199 mg/dL [facility] Comment: Interpretive Data Fasting glucose >/= [...] classification and Diagnosis of Diabetes Diabetes Care 2017;40 (Suppl. 1):S11. Current interpretive data was last revised 2017. Calcium 8.2(L) 8.5 - 10.3 mg/dL [facility] Blood 06/08/2022 4:12 AM CDT 06/08/2022 4:38 AM CDT Catherine Adams MD LAB BLOOD ORDERABLES Final Result Performing Organization Address [facility] de Phone Number [facility] Department [place] [address] * POCT glucose (06/08/2022 3:00 AM CDT) Pathologist [facility] Glucose, POC 135 70 - 199 mg/dL [facility] Blood 06/08/2022 3:00 AM CDT 06/08/2022 3:00 AM CDT Catherine Adams MD LAB POCT ORDERABLES - DEVIC E Final Result Performing Organization Address City/[facility] de Phone Number [facility] Department [place] [address] * (ABNORMAL) Differential, auto (06/08/2022 2:14 AM CDT) Neutrophil abs 8.2(H) 1.7 - 6.5 K/cumm [facility] Imm gran abs 0.4(H) 0.0 - 0.1 K/cumm [facility] Lymphocyte abs 0.5(L) 0.8 - 3.3 K/cumm [facility] Monocyte abs 1.0(H) 0.2 - 0.8 K/cumm [facility] Eosinophil abs 0.0 0.0 - 0.5 K/cumm [facility] Basophil abs 0.0 0.0 - 0.1 K/cumm [facility] Neutrophil pct 81.0 % [facility] Comment: Interpretive Data Percent cell count reference ranges are not reported, since discordance with absolute values may lead to misinterpretation of CBC data. Current Interpretive Data was last revised on 2017. Imm gran pct 3.8 % [facility] Comment: Interpretive Data Percent cell count reference ranges are not reported, since discordance with absolute values may lead to misinterpretation of CBC data. Current Interpretive Data was last revised on 2017. Lymphocyte pct 5.0 % [facility] Comment: Interpretive Data Percent cell count reference ranges are not reported, since discordance with absolute values may lead to misinterpretation of CBC data. Current Interpretive Data was last revised on 2017. Monocyte pct 10.1 % [facility] Comment: Interpretive Data Percent cell count reference ranges are not reported, since discordance with absolute values may lead to misinterpretation of CBC data. Current Interpretive Data was last revised on 2017. Eosinophil pct 0.0 % [facility] Comment: Interpretive Data Percent cell count reference ranges are not reported, since discordance with absolute values may lead to misinterpretation of CBC data. Current Interpretive Data was last revised on 2017. Basophil pct 0.1 % [facility] Comment: Interpretive Data Percent cell count reference ranges are not reported, since discordance with absolute values may lead to misinterpretation of CBC data. Current Interpretive Data was last revised on 2017. Blood 06/08/2022 2:14 AM CDT 06/08/2022 4:38 AM CDT us Catherine Adams MD LAB BLOOD ORDERABLES Final Result [facility] Department [place] [address] * POCT glucose (06/08/2022 2:14 AM CDT) Glucose, POC 141 70 - 199 mg/dL [facility] Blood 06/08/2022 2:14 AM CDT 06/08/2022 2:14 AM CDT Catherine Adams MD LAB POCT ORDERABLES - DEVIC E Final Result Performing Organization Address City/[facility]/ZIP Co de Phone Number [facility] Department [place] [address] * Potassium, whole blood (06/08/2022 2:14 AM CDT) Pathologist [facility] Potassium, bld 4.0 3.3 - 4.9 mmol/L [facility] Blood 06/08/2022 2:14 AM CDT 06/08/2022 2:22 AM CDT Marcelina Lo CHIEF AIRLINE RADIO OPERATOR LAB BLOOD ORDERABLES Final Re sult Performing Organization Address [facility] Co de Phone Number [facility] [place] [address] * (ABNORMAL) Blood gas, arterial (06/08/2022 2:14 AM CDT) pH, Art 7.45 7.35 - 7.45 [facility] PCO2, Arterial 33(L) 35 - 45 mmHg [facility] PO2, Arterial 180(H) 83 - 108 mmHg [facility] HCO3 Art (Calculated) 24 20 - 30 mmol/L [facility] BE, art -1 mmol/L [facility] Comment: Interpretive Data No Reference Range Established Current Interpretive Data was last revised on 2017 O2 Sat Art (Measured) 98(H) 90 - 95 % [facility] Blood 06/08/2022 2:14 AM CDT 06/08/2022 2:22 AM CDT Marcelina Lo CHIEF AIRLINE RADIO OPERATOR LAB BLOOD ORDERABLES Final Re sult Performing Organization Address [facility] Co de Phone Number [facility] [place] [address] * (ABNORMAL) CBC with auto differential (06/08/2022 2:14 AM CDT) WBC 10.1(H) 3.8 - 9.9 K/cumm [facility] Hgb 8.3(L) 13.0 - 17.5 g/dL [facility] Hct 23.1(L) 38.9 - 50.3 % [facility] Plt 218 150 - 400 K/cumm [facility] MPV 11.1 9.1 - 12.3 fL [facility] RBC 2.60(L) 4.30 - 5.80 M/cumm [facility] MCV 88.8 81.3 - 96.4 fL [facility] MCH 31.9 27.1 - 33.3 pg [facility] MCHC 35.9(H) 32.3 - 35.7 g/dL [facility] RDW CV 13.3 11.1 - 14.9 % [facility] RDW SD 43.1 35.7 - 48.1 fL [facility] NRBC abs 0.00 0.00 - 0.01 K/cumm [facility] Blood 06/08/2022 2:14 AM CDT 06/08/2022 4:38 AM CDT Marcelina Lo CHIEF AIRLINE RADIO OPERATOR LAB BLOOD ORDERABLES Final Re sult [facility] Department [place] [address] * POCT glucose (06/08/2022 1:13 AM CDT) Glucose, POC 151 70 - 199 mg/dL [facility] Blood 06/08/2022 1:13 AM CDT 06/08/2022 1:13 AM CDT us Catherine Adams MD LAB POCT ORDERABLES - DEVIC E Final Result Performing Organization Address [facility] de Phone Number [facility] Department [place] [address] * (ABNORMAL) Blood gas, arterial (06/08/2022 12:30 AM CDT) Pathologist [facility] pH, Art 7.50(H) 7.35 - 7.45 [facility] PCO2, Arterial 28(L) 35 - 45 mmHg [facility] PO2, Arterial 144(H) 83 - 108 mmHg [facility] HCO3 Art (Calculated) 22 20 - 30 mmol/L [facility] BE, art 0 mmol/L [facility] Comment: Interpretive Data No Reference Range Established Current Interpretive Data was last revised on 2017 O2 Sat Art (Measured) 98(H) 90 - 95 % [facility] Blood 06/08/2022 12:3 0 AM CDT 06/08/2022 12:39 AM CDT us Marcelina Lo CHIEF AIRLINE RADIO OPERATOR LAB BLOOD ORDERABLES Final Re sult Performing Organization Address [facility] de Phone Number [facility] Department [place] [address] * (ABNORMAL) eGFR (06/08/2022 12:28 AM CDT) Pathologist [facility] eGFR 7(L) 90 - 130 mL/min/1. 73 m2 [facility] Comment: Interpretive Data Reference Interval [...] interpretive data was last reviewed 2021. Blood 06/08/2022 12:2 8 AM CDT 06/08/2022 12:42 AM CDT us Catherine Adams MD LAB BLOOD ORDERABLES Final Result Performing Organization Address City/[facility]/ZIP Co de Phone Number [facility] Department [place] [address] * (ABNORMAL) Hemoglobin total, pulmonary artery (06/08/2022 12:28 AM CDT) Hemoglobin total, PA 9.0(L) 13.0 - 17.5 g/dL [facility] Blood 06/08/2022 12:2 8 AM CDT 06/08/2022 12:39 AM CDT us Marcelina Lo NP LAB BLOOD ORDERABLES Final Re sult Performing Organization Address City/[facility]/ZIP Co de Phone Number [facility] Department [place] [address] * Oxyhemoglobin, pulmonary artery (06/08/2022 12:28 AM CDT) Oxyhemoglobin, PA 59.2 % [facility] Comment: Interpretive Data No reference range established. Current interpretive data was last revised 2019. Blood 06/08/2022 12:2 8 AM CDT 06/08/2022 12:39 AM CDT us Marcelina Lo NP LAB BLOOD ORDERABLES Final Re sult Performing Organization Address City/[facility]/ZIP Co de Phone Number [facility] [place] [address] * Potassium, whole blood (06/08/2022 12:28 AM CDT) Potassium, bld 3.5 3.3 - 4.9 mmol/L [facility] Blood 06/08/2022 12:2 8 AM CDT 06/08/2022 12:39 AM CDT Catherine Adams MD LAB BLOOD ORDERABLES Final Result Performing Organization Address [facility] Co de Phone Number [facility] [place] [address] * Magnesium (06/08/2022 12:28 AM CDT) Magnesium 2.2 1.4 - 2.5 mg/dL [facility] Blood 06/08/2022 12:2 8 AM CDT 06/08/2022 12:42 AM CDT Catherine Adams MD LAB BLOOD ORDERABLES Final Result Performing Organization Address City/[facility] Co de Phone Number [facility] [place] [address] * Beta-hydroxybutyrate (06/08/2022 12:28 AM CDT) Beta-Hydroxybut yrate 0.1 0.0 - 0.5 mmol/L [facility] Blood 06/08/2022 12:2 8 AM CDT 06/08/2022 12:39 AM CDT Catherine Adams MD LAB BLOOD ORDERABLES Edited Result - Final [facility] Department [place] [address] * (ABNORMAL) Basic metabolic panel (06/08/2022 12:28 AM CDT) [facility] Sodium 135 135 - 145 mmol/L [facility] Potassium, pl 3.5 3.3 - 4.9 mmol/L [facility] Chloride 96(L) 97 - 110 mmol/L [facility] CO2 23 22 - 32 mmol/L [facility] Anion gap 16(H) 2 - 15 mmol/L [facility] BUN 69(H) 8 - 25 mg/dL [facility] Creatinine 8.46(H) 0.80 - 1.30 mg/dL [facility] Glucose 147 70 - 199 mg/dL [facility] Comment: Interpretive Data Fasting glucose >/= [...] classification and Diagnosis of Diabetes Diabetes Care 2017;40 (Suppl. 1):S11. Current interpretive data was last revised 2017. Calcium 7.8(L) 8.5 - 10.3 mg/dL [facility] Blood 06/08/2022 12:2 8 AM CDT 06/08/2022 12:42 AM CDT Catherine Adams MD LAB BLOOD ORDERABLES Final Result Performing Organization Address City/[facility]/ZIP Co de Phone Number [facility] Department [place] [address] * POCT glucose (06/08/2022 12:09 AM CDT) Glucose, POC 169 70 - 199 mg/dL [facility] Blood 06/08/2022 12:0 9 AM CDT 06/08/2022 12:09 AM CDT us Catherine Adams MD LAB POCT ORDERABLES - DEVIC E Final Result [facility] Department [place] [address] * (ABNORMAL) eGFR (06/07/2022 10:58 PM CDT) eGFR 7(L) 90 - 130 mL/min/1. 73 m2 [facility] Comment: Interpretive Data Reference Interval [...] interpretive data was last reviewed 2021. Blood 06/07/2022 10:5 8 PM CDT 06/07/2022 11:20 PM CDT Catherine Adams MD LAB BLOOD ORDERABLES Final Result Performing Organization Address [facility] Co de Phone Number [facility] [place] [address] * (ABNORMAL) POCT glucose (06/07/2022 10:58 PM CDT) Glucose, POC 211(H) 70 - 199 mg/dL [facility] Blood 06/07/2022 10:5 8 PM CDT 06/07/2022 10:58 PM CDT Catherine Adams MD LAB POCT ORDERABLES - DEVIC E Final Result Performing Organization Address [facility] Co de Phone Number [facility] Department [place] [address] * Lactate, whole blood (06/07/2022 10:58 PM CDT) Lactate, bld 1.8 0.7 - 2.0 mmol/L [facility] Blood 06/07/2022 10:5 8 PM CDT 06/07/2022 11:05 PM CDT Catherine Adams MD LAB BLOOD ORDERABLES Final Result Performing Organization Address [facility] Co de Phone Number [facility] Department [place] [address] * Potassium, whole blood (06/07/2022 10:58 PM CDT) Potassium, bld 3.4 3.3 - 4.9 mmol/L [facility] Blood 06/07/2022 10:5 8 PM CDT 06/07/2022 11:05 PM CDT Catherine Adams MD LAB BLOOD ORDERABLES Final Result Performing Organization Address [facility] Co de Phone Number [facility] [place] [address] * (ABNORMAL) Phosphorus (06/07/2022 10:58 PM CDT) Phosphorus, pl 4.7(H) 2.3 - 4.5 mg/dL [facility] Comment:Reviewed Blood 06/07/2022 10:5 8 PM CDT 06/07/2022 11:20 PM CDT Catherine Adams MD LAB BLOOD ORDERABLES Final Result Performing Organization Address [facility] de Phone Number [facility] [place] [address] * Magnesium (06/07/2022 10:58 PM CDT) Magnesium 2.2 1.4 - 2.5 mg/dL [facility] Blood 06/07/2022 10:5 8 PM CDT 06/07/2022 11:20 PM CDT Catherine Adams MD LAB BLOOD ORDERABLES Final Result Performing Organization Address [facility] de Phone Number [facility] [place] [address] * Beta-hydroxybutyrate (06/07/2022 10:58 PM CDT) Beta-Hydroxybut yrate 0.1 0.0 - 0.5 mmol/L [facility] Blood 06/07/2022 10:5 8 PM CDT 06/07/2022 11:05 PM CDT Catherine Adams MD LAB BLOOD ORDERABLES Final Result Performing Organization Address City/[facility] Co de Phone Number ALESSANDRA CARRION Billie [facility] Department [place] [address] * (ABNORMAL) Basic metabolic panel (06/07/2022 10:58 PM CDT) Sodium 134(L) 135 - 145 mmol/L [facility] Potassium, pl 3.4 3.3 - 4.9 mmol/L [facility] Chloride 95(L) 97 - 110 mmol/L [facility] CO2 23 22 - 32 mmol/L [facility] Anion gap 16(H) 2 - 15 mmol/L [facility] BUN 75(H) 8 - 25 mg/dL [facility] Creatinine 8.92(H) 0.80 - 1.30 mg/dL [facility] Glucose 187 70 - 199 mg/dL [facility] Comment: Interpretive Data Fasting glucose >/= [...] classification and Diagnosis of Diabetes Diabetes Care 2017;40 (Suppl. 1):S11. Current interpretive data was last revised 2017. Calcium 8.1(L) 8.5 - 10.3 mg/dL [facility] Blood 06/07/2022 10:5 8 PM CDT 06/07/2022 11:20 PM CDT us Catherine Adams MD LAB BLOOD ORDERABLES Final Result ALESSANDRA CARRION Billie [facility] Department [place] [address] * (ABNORMAL) Blood gas, arterial (06/07/2022 10:58 PM CDT) pH, Art 7.46(H) 7.35 - 7.45 [facility] PCO2, Arterial 31(L) 35 - 45 mmHg [facility] PO2, Arterial 73(L) 83 - 108 mmHg [facility] HCO3 Art (Calculated) 22 20 - 30 mmol/L [facility] BE, art -2 mmol/L [facility] Comment: Interpretive Data No Reference Range Established Current Interpretive Data was last revised on 2017 O2 Sat Art (Measured) 95 90 - 95 % [facility] Blood 06/07/2022 10:5 8 PM CDT 06/07/2022 11:05 PM CDT us Marcelina oL CHIEF AIRLINE RADIO OPERATOR LAB BLOOD ORDERABLES Final Re sult [facility] One [facility] Department [place] [address] * [place] ARTL CATHJ/CANNULJ MNTR/TRANSFUSION SPX PRQ (06/07/2022 10:17 PM CDT) Narrative Eric Reed MD - 06/07/2022 10:17 PM CDT Lavern Morrison MD ? 06/07/2022 10:29 PM Arterial Line Insertion Date/Time: 06/07/2022 10:17 PM Performed by: Lavern Morrison MD Authorized by: Lavern Morrison MD [place] Protocol: RN Notified of Procedure: yes ?? Informed consent: ??Risks, benefits, alternatives discussed Patient's stated name/ matches armband: ??Patient unable to verbalize - armband matched to name and within medical record Allergies confirmed: yes ?? Consent form signed, dated, timed; matches correct patient, intended procedure and site: ??Yes Imaging: ??N/a and pertinent imaging reviewed, correctly oriented and match to patient identifiers Lab/Diag test results: ??Pertinent lab/diag tests reviewed and match to patient identifiers Supplies, devices and special equipment are available: yes ?? Site/side marked: yes Immediately prior to the procedure a time out was called: a verbal verification by the procedure participants confirmed correct patient identity, correct site/side marked and visible (if applicable); agreement on procedure to be done; and correct patient positioning ?? Indications: multiple ABGs and hemodynamic monitoring ?? Location: ??Left radial Anesthesia: ??None Patient skin preparation: chlorhexidine ?? Ultrasound guidance: ??Sterile probe cover used, landmarks identified, used for needle insertion and used for site marking Patient preparation: ??Cap, gloves, gown and sterile probe cover Single percutaneous needle puncture: Yes ?? Number of attempts: ??2 Placement confirmed with arterial waveform: Yes ?? Post-procedure: ??Line sutured, dressing applied and securement device afixed Post-procedure CMS: ??Unchanged Patient tolerance: ??Patient tolerated the procedure well with no immediate complications Complications: hematoma during insertion ?? Complications comment: ??Small hematoma near insertion point Post Procedure Debrief: All guidewires, needles, sponges or other items are accounted for: yes ?? Any special post procedure monitoring, testing or other considerations: n/a ?? All specimens identified, labeled and matched to patient identification: n/a ?? Responsible libertarian for transporting specimen(s) to lab determined: n/a ?? Lavern Morrison MD IV THERAPY ORDERABLES Final Result * (ABNORMAL) POCT glucose (06/07/2022 9:58 PM CDT) Glucose, POC 249(H) 70 - 199 mg/dL [facility] Blood 06/07/2022 9:58 PM CDT 06/07/2022 9:58 PM CDT Catherine Adams MD LAB POCT ORDERABLES - DEVIC E Final Result [facility] One [facility] Department [place] [address] * XR Abdomen Ap 1 Vw (06/07/2022 8:58 PM CDT) Anatomical Region Laterality Modality Body, Abdomen N/A Computed Radiogr aphy 06/08/2022 8:54 AM CDT Impressions 06/08/2022 11:32 AM CDT A single view of the abdomen is submitted for evaluation. There is a partially imaged impella device. ??A vascular drain tip projects over the mediastinum. ??An additional external device projects over the midline upper abdomen. Endogastric tube tip projects over the peripyloric region. ??The side-port projects over the gastric body. Dictated by: Shiva Anaya MD The radiology attending physician has personally reviewed this study, and had reviewed and/or edited this written report and agrees with it. Electronically signed by: Félix Chahal M.D. Narrative 06/08/2022 11:32 AM CDT EXAMINATION: Abdomen, one view. HISTORY: Check tube placement. COMPARISON: Abdominal radiograph 06/05/2022 Procedure Note Félix Chahal MD - 06/08/2022 EXAMINATION: Abdomen, one view. HISTORY: Check tube placement. COMPARISON: Abdominal radiograph 06/05/2022 IMPRESSION: A single view of the abdomen is submitted for evaluation. There is a partially imaged impella device. A vascular drain tip projects over the mediastinum. An additional external device projects over the midline upper abdomen. Endogastric tube tip projects over the peripyloric region. The side-port projects over the gastric body. Dictated by: Shiva Anaya MD The radiology attending physician has personally reviewed this study, and had reviewed and/or edited this written report and agrees with it. Electronically signed by: Félix Chahal M.D. Catherine Adams MD IMG XR PROCEDURES Final Res ult * Reticulocyte Count (06/07/2022 8:54 PM CDT) Retics, absolute 0.052 0.020 - 0.087 M/cumm [facility] Retics 2.2 0.4 - 2.9 % [facility] Reticulocyte Hgb 31.7 30.5 - 38.0 pg [facility] Blood 06/07/2022 8:54 PM CDT 06/07/2022 9:52 PM CDT Cathernie Adams MD LAB BLOOD ORDERABLES Final Result [facility] [place] [address] * (ABNORMAL) Hemoglobin and hematocrit (06/07/2022 8:54 PM CDT) Hgb 7.5(L) 13.0 - 17.5 g/dL [facility] Comment:Hemoglobin delta due to apparent blood transfusion. Hct 20.9(L) 38.9 - 50.3 % [facility] Blood 06/07/2022 8:54 PM CDT 06/07/2022 9:47 PM CDT us Catherine Admas MD LAB BLOOD ORDERABLES Final Result Performing Organization Address [facility] Co de Phone Number [facility] [place] [address] * (ABNORMAL) POCT glucose (06/07/2022 8:50 PM CDT) Glucose, POC 304(H) 70 - 199 mg/dL [facility] Blood 06/07/2022 8:50 PM CDT 06/07/2022 8:50 PM CDT Result [facility] us Catherine Adams MD LAB POCT ORDERABLES - DEVIC E Final Result Performing Organization Address [facility] Co de Phone Number [facility] Department [place] [address] * (ABNORMAL) Haptoglobin (06/07/2022 8:00 PM CDT) Haptoglobin 312.0(H) 30.0 - 200.0 mg/dL [facility] Blood 06/07/2022 8:00 PM CDT 06/07/2022 8:26 PM CDT us Catherine Adams MD LAB BLOOD ORDERABLES Final Result Performing Organization Address [facility] Co de Phone Number [facility] [place] [address] * (ABNORMAL) Lactate dehydrogenase (LD) (06/07/2022 8:00 PM CDT) Lactate dehydrogenase (LDH) 335(H) 100 - 250 Units/L [facility] Blood 06/07/2022 8:00 PM CDT 06/07/2022 8:26 PM CDT Catherine Adams MD LAB BLOOD ORDERABLES Final Result Performing Organization Address [facility] de Phone Number [facility] Department [place] [address] * (ABNORMAL) Ferritin (06/07/2022 8:00 PM CDT) Ferritin 2,062(H) 30 - 400 ng/mL [facility] Blood 06/07/2022 8:00 PM CDT 06/07/2022 8:26 PM CDT us Catherine Adams MD LAB BLOOD ORDERABLES Final Result Performing Organization Address [facility] de Phone Number [facility] [place] [address] * (ABNORMAL) Iron profile w/ IBC (06/07/2022 8:00 PM CDT) Iron 50 50 - 150 mcg/dL [facility] TIBC 130(L) 250 - 400 mcg/dL [facility] Transferrin saturation 38 20 - 50 % [facility] Blood 06/07/2022 8:00 PM CDT 06/07/2022 8:26 PM CDT us Catherine Adams MD LAB BLOOD ORDERABLES Final Result Performing Organization Address City/[facility]/ZIP Co de Phone Number [facility] [place] [address] * Folate (06/07/2022 8:00 PM CDT) Pathologist [facility] Folic acid 8.7 >=5.0 ng/mL [facility] Blood 06/07/2022 8:00 PM CDT 06/07/2022 8:26 PM CDT us Catherine Adams MD LAB BLOOD ORDERABLES Final Result Performing Organization Address [facility] [place] [address] * Vitamin B12 (06/07/2022 8:00 PM CDT) [facility] Vitamin B12 373 230 - 1,250 pg/mL [facility] Blood 06/07/2022 8:00 PM CDT 06/07/2022 8:26 PM CDT us Catherine Adams MD LAB BLOOD ORDERABLES Final Result Performing Organization Address [facility] [place] [address] * Oxyhemoglobin, pulmonary artery (06/07/2022 7:57 PM CDT) Pathologist [facility] Oxyhemoglobin, PA 57.3 % [facility] Comment: Interpretive Data No reference range established. Current interpretive data was last revised 2019. Blood 06/07/2022 7:57 PM CDT 06/07/2022 8:09 PM CDT us Marcelina Lo NP LAB BLOOD ORDERABLES Final Re sult Performing Organization Address City/[facility]/[place] [address] * (ABNORMAL) Hemoglobin total, pulmonary artery (06/07/2022 7:57 PM CDT) Pathologist [facility] Hemoglobin total, PA 8.7(L) 13.0 - 17.5 g/dL [facility] Blood 06/07/2022 7:57 PM CDT 06/07/2022 8:09 PM CDT Marcelina Lo NP LAB BLOOD ORDERABLES Final Re sult Performing Organization Address [facility]/ZIP Co de Phone Number [facility] Department [place] [address] * (ABNORMAL) aPTT (06/07/2022 7:57 PM CDT) [facility] aPTT 44(H) 27 - 37 sec [facility] Comment: Interpretive Data Therapeutic heparin range: 60.0 - 94.0 seconds. Based on correlation with therapeutic heparin activity range of 0.3-0.7 Units/mL. Current interpretive data was last revised on 2020. Blood 06/07/2022 7:57 PM CDT 06/07/2022 8:14 PM CDT Narrative [facility] - 06/07/2022 8:20 PM CDT Draw STAT PTT 6 hrs after initiation of heparin infusion, draw STAT PTT 6 hours after each dose/rate change, and every 6 hours until 2 consecutive PTTs are within therapeutic range. Once two consecutive PTT's are therapeutic (60-94.9 seconds), then draw PTT every AM until heparin is discontinued. us Conrad Weston Chi, MD LAB BLOOD ORDERABLES Ann Marie l Result Performing Organization Address City/[facility]/ZIP Co de Phone Number [facility] Department [place] [address] * Potassium, whole blood (06/07/2022 7:57 PM CDT) Pathologist [facility] Potassium, bld 3.3 3.3 - 4.9 mmol/L [facility] Blood 06/07/2022 7:57 PM CDT 06/07/2022 8:09 PM CDT Catherine Adams MD LAB BLOOD ORDERABLES Final Result Performing Organization Address City/[facility] Co de Phone Number [facility] Department [place] [address] * (ABNORMAL) POCT glucose (06/07/2022 7:51 PM CDT) Pathologist [facility] Glucose, POC 325(H) 70 - 199 mg/dL [facility] Blood 06/07/2022 7:51 PM CDT 06/07/2022 7:51 PM CDT Catherine Adams MD LAB POCT ORDERABLES - DEVIC E Final Result Performing Organization Address [facility] de Phone Number [facility] Department [place] [address] * (ABNORMAL) Differential, auto (06/07/2022 7:42 PM CDT) [facility] Neutrophil abs 7.3(H) 1.7 - 6.5 K/cumm [facility] Imm gran abs 0.2(H) 0.0 - 0.1 K/cumm [facility] Lymphocyte abs 0.6(L) 0.8 - 3.3 K/cumm [facility] Monocyte abs 0.5 0.2 - 0.8 K/cumm [facility] Eosinophil abs 0.0 0.0 - 0.5 K/cumm [facility] Basophil abs 0.0 0.0 - 0.1 K/cumm [facility] Neutrophil pct 85.1 % [facility] Comment: Interpretive Data Percent cell count reference ranges are not reported, since discordance with absolute values may lead to misinterpretation of CBC data. Current Interpretive Data was last revised on 2017. Imm gran pct 2.4 % [facility] Comment: Interpretive Data Percent cell count reference ranges are not reported, since discordance with absolute values may lead to misinterpretation of CBC data. Current Interpretive Data was last revised on 2017. Lymphocyte pct 6.6 % [facility] Comment: Interpretive Data Percent cell count reference ranges are not reported, since discordance with absolute values may lead to misinterpretation of CBC data. Current Interpretive Data was last revised on 2017. Monocyte pct 5.8 % [facility] Comment: Interpretive Data Percent cell count reference ranges are not reported, since discordance with absolute values may lead to misinterpretation of CBC data. Current Interpretive Data was last revised on 2017. Eosinophil pct 0.0 % [facility] Comment: Interpretive Data Percent cell count reference ranges are not reported, since discordance with absolute values may lead to misinterpretation of CBC data. Current Interpretive Data was last revised on 2017. Basophil pct 0.1 % [facility] Comment: Interpretive Data Percent cell count reference ranges are not reported, since discordance with absolute values may lead to misinterpretation of CBC data. Current Interpretive Data was last revised on 2017. Blood 06/07/2022 7:42 PM CDT 06/07/2022 8:25 PM CDT Catherine Adams MD LAB BLOOD ORDERABLES Final Result [facility] One [facility] Department [place] [address] * (ABNORMAL) CBC with auto differential (06/07/2022 7:42 PM CDT) WBC 8.6 3.8 - 9.9 K/cumm [facility] Hgb 4.3(C) 13.0 - 17.5 g/dL [facility] Comment:Critical result call ed to and read back by LAVERN MORRISON RN on 06 07 2022 at 2036 to aJnis Melton. Hct 12.3(L) 38.9 - 50.3 % [facility] Plt 233 150 - 400 K/cumm [facility] MPV 11.5 9.1 - 12.3 fL [facility] RBC 1.38(L) 4.30 - 5.80 M/cumm [facility] MCV 89.1 81.3 - 96.4 fL [facility] MCH 31.2 27.1 - 33.3 pg [facility] MCHC 35.0 32.3 - 35.7 g/dL [facility] RDW CV 13.3 11.1 - 14.9 % [facility] RDW SD 43.5 35.7 - 48.1 fL [facility] NRBC abs 0.00 0.00 - 0.01 K/cumm [facility] Blood 06/07/2022 7:42 PM CDT 06/07/2022 8:25 PM CDT Catherine Adams MD LAB BLOOD ORDERABLES Final Result Performing Organization Address [facility]/ZIP Co de Phone Number [facility] Department [place] [address] * (ABNORMAL) Beta-hydroxybutyrate (06/07/2022 6:24 PM CDT) Pathologist [facility] Beta-Hydroxybut yrate 2.3(H) 0.0 - 0.5 mmol/L [facility] Blood 06/07/2022 6:24 PM CDT 06/07/2022 6:42 PM CDT Catherine Adams MD LAB BLOOD ORDERABLES Final Result [facility] Department [place] [address] * (ABNORMAL) Differential, auto (06/07/2022 6:24 PM CDT) Pathologist [facility] Neutrophil abs 6.5 1.7 - 6.5 K/cumm [facility] Imm gran abs 0.2(H) 0.0 - 0.1 K/cumm [facility] Lymphocyte abs 0.4(L) 0.8 - 3.3 K/cumm [facility] Monocyte abs 0.3 0.2 - 0.8 K/cumm [facility] Eosinophil abs 0.0 0.0 - 0.5 K/cumm [facility] Basophil abs 0.0 0.0 - 0.1 K/cumm [facility] Neutrophil pct 88.3 % [facility] Comment: Interpretive Data Percent cell count reference ranges are not reported, since discordance with absolute values may lead to misinterpretation of CBC data. Current Interpretive Data was last revised on 2017. Imm gran pct 2.0 % [facility] Comment: Interpretive Data Percent cell count reference ranges are not reported, since discordance with absolute values may lead to misinterpretation of CBC data. Current Interpretive Data was last revised on 2017. Lymphocyte pct 5.3 % [facility] Comment: Interpretive Data Percent cell count reference ranges are not reported, since discordance with absolute values may lead to misinterpretation of CBC data. Current Interpretive Data was last revised on 2017. Monocyte pct 4.4 % [facility] Comment: Interpretive Data Percent cell count reference ranges are not reported, since discordance with absolute values may lead to misinterpretation of CBC data. Current Interpretive Data was last revised on 2017. Eosinophil pct 0.0 % [facility] Comment: Interpretive Data Percent cell count reference ranges are not reported, since discordance with absolute values may lead to misinterpretation of CBC data. Current Interpretive Data was last revised on 2017. Basophil pct 0.0 % [facility] Comment: Interpretive Data Percent cell count reference ranges are not reported, since discordance with absolute values may lead to misinterpretation of CBC data. Current Interpretive Data was last revised on 2017. Blood 06/07/2022 6:24 PM CDT 06/07/2022 6:37 PM CDT us Catherine Adams MD LAB BLOOD ORDERABLES Final Result [facility] Department [place] [address] * Blood culture Blood Wrist, right (06/07/2022 6:24 PM CDT) Report Final Report: No growth [facility] Blood (Wrist, right) 06/07/2022 6:24 PM CDT 06/07/2022 6:45 PM CDT Luis AVILA - 06/12/2022 7:00 AM CDT From a different site than #1. 1. ?Blood cultures are incubated for 4 days on a continuously monitored blood culture system. The first report of a negative culture is issued within 24 hours of receipt of the specimen in the laboratory. 2. ?Positive culture results are reported as soon as they are detected. 3. ?The most important factor for detection of microbes in the setting of bloodstream infection is the volume of blood submitted for culture. Failure to collect an optimal blood volume can result in false negative blood cultures. For pediatric patients, the recommended blood volume to collect is 1 mL of blood per year of patient age (up to 20 mL) per blood culture set. For adult patients, 20 mL of blood, divided equally between aerobic and anaerobic blood culture bottles, is recommended for each blood culture set. 4. ?For blood cultures with Gram-positive cocci, a rapid molecular test for organism identification may be performed using the [employer] Gram-Positive Blood Culture Assay. This assay detects microbial DNA in positive blood culture broth via hybridization of target DNA to capture oligonucleotides on a microarray. This assay has been cleared by the [place] Food and Drug Administration and its performance characteristics have been verified by the [facility]. 5. ?For questions about this culture, contact the Microbiology Laboratory at [phone]. Interpretive data was last revised on 2020. us Catherine Adams MD LAB MICROBIOLOGY - GENERAL ORDERABLES Final Result [facility] Department [place] [address] * Blood culture Blood Central venous catheter (06/07/2022 6:24 PM CDT) Report Final Report: No growth [facility] Blood (Central venous catheter) 06/07/2022 6:24 PM CDT 06/07/2022 6:50 PM CDT Narrative [facility] - 06/12/2022 7:00 AM CDT 1. ?Blood cultures are incubated for 4 days on a continuously monitored blood culture system. The first report of a negative culture is issued within 24 hours of receipt of the specimen in the laboratory. 2. ?Positive culture results are reported as soon as they are detected. 3. ?The most important factor for detection of microbes in the setting of bloodstream infection is the volume of blood submitted for culture. Failure to collect an optimal blood volume can result in false negative blood cultures. For pediatric patients, the recommended blood volume to collect is 1 mL of blood per year of patient age (up to 20 mL) per blood culture set. For adult patients, 20 mL of blood, divided equally between aerobic and anaerobic blood culture bottles, is recommended for each blood culture set. 4. ?For blood cultures with Gram-positive cocci, a rapid molecular test for organism identification may be performed using the [employer] Gram-Positive Blood Culture Assay. This assay detects microbial DNA in positive blood culture broth via hybridization of target DNA to capture oligonucleotides on a microarray. This assay has been cleared by the [place] Food and Drug Administration and its performance characteristics have been verified by the [facility]. 5. ?For questions about this culture, contact the Microbiology Laboratory at [phone]. Interpretive data was last revised on 2020. Catherine Adams MD LAB MICROBIOLOGY - GENERAL ORDERABLES Final Result [facility] [place] [address] * (ABNORMAL) CBC with auto differential (06/07/2022 6:24 PM CDT) [facility] WBC 7.3 3.8 - 9.9 K/cumm [facility] Hgb 7.8(L) 13.0 - 17.5 g/dL [facility] Hct 22.1(L) 38.9 - 50.3 % [facility] Plt 194 150 - 400 K/cumm [facility] MPV 11.2 9.1 - 12.3 fL [facility] RBC 2.52(L) 4.30 - 5.80 M/cumm [facility] MCV 87.7 81.3 - 96.4 fL [facility] MCH 31.0 27.1 - 33.3 pg [facility] MCHC 35.3 32.3 - 35.7 g/dL [facility] RDW CV 13.2 11.1 - 14.9 % [facility] RDW SD 42.8 35.7 - 48.1 fL [facility] NRBC abs 0.00 0.00 - 0.01 K/cumm [facility] Blood 06/07/2022 6:24 PM CDT 06/07/2022 6:37 PM CDT Catherine Adams MD LAB BLOOD ORDERABLES Final Result Performing Organization Address City/State/[facility] Co de Phone Number [facility] Department [place] [address] * XR Chest 1 View (06/07/2022 6:20 PM CDT) Anatomical Region Laterality Modality Body, Chest N/A Computed Radiogr aphy 06/08/2022 9:34 AM CDT Impressions 06/08/2022 9:59 AM CDT 06/07/2022 5:56 PM: The current study is compared with the prior radiograph dated 06/06/2022 4:27 AM. Interval placement of an endotracheal tube with tip approximately 7 cm above the boni. Interval placement of an Impella device. There is an inferior approach [place]-Liv catheter with tip overlying the proximal right pulmonary artery. There is also a left internal jugular central venous catheter with tip overlying the superior vena cava. The cardiomediastinal silhouette is stable. Improved bilateral diffuse interstitial opacities, compatible with improving moderate pulmonary edema. Increasing consolidation at the left lung apex may represent an area of more focal edema. No definite pleural effusion. No pneumothorax. 06/08/2022 5:33 AM: Comparison is made to the above dictated report. The previously described focal consolidation of the left lung apex has improved. New/increased opacification of the retrocardiac region likely represents moderate left basilar atelectasis. Otherwise no interval change. Dictated by: Jersey Morales MD The radiology attending physician has personally reviewed this study, and had reviewed and/or edited this written report and agrees with it. Electronically signed by: John Bruno M.D. Narrative 06/08/2022 9:59 AM CDT EXAMINATION: 1) 1 view chest radiograph 2) 1 view chest radiograph Procedure Note John Bruno MD - 06/08/2022 EXAMINATION: 1) 1 view chest radiograph 2) 1 view chest radiograph IMPRESSION: 06/07/2022 5:56 PM: The current study is compared with the prior radiograph dated 06/06/2022 4:27 AM. Interval placement of an endotracheal tube with tip approximately 7 cm above the boni. Interval placement of an Impella device. There is an inferior approach [place]-Liv catheter with tip overlying the proximal right pulmonary artery. There is also a left internal jugular central venous catheter with tip overlying the superior vena cava. The cardiomediastinal silhouette is stable. Improved bilateral diffuse interstitial opacities, compatible with improving moderate pulmonary edema. Increasing consolidation at the left lung apex may represent an area of more focal edema. No definite pleural effusion. No pneumothorax. 06/08/2022 5:33 AM: Comparison is made to the above dictated report. The previously described focal consolidation of the left lung apex has improved. New/increased opacification of the retrocardiac region likely represents moderate left basilar atelectasis. Otherwise no interval change. Dictated by: Jersey Morales MD The radiology attending physician has personally reviewed this study, and had reviewed and/or edited this written report and agrees with it. Electronically signed by: John Bruno M.D. Catherine Adams MD IMG XR PROCEDURES Final Res ult * (ABNORMAL) Blood gas, arterial (06/07/2022 5:20 PM CDT) pH, Art 7.46(H) 7.35 - 7.45 [facility] PCO2, Arterial 27(L) 35 - 45 mmHg [facility] PO2, Arterial 105 83 - 108 mmHg [facility] HCO3 Art (Calculated) 20 20 - 30 mmol/L [facility] BE, art -4 mmol/L [facility] Comment: Interpretive Data No Reference Range Established Current Interpretive Data was last revised on 2017 O2 Sat Art (Measured) 98(H) 90 - 95 % [facility] Blood 06/07/2022 5:20 PM CDT 06/07/2022 5:26 PM CDT Catherine Adams MD LAB BLOOD ORDERABLES Final Result Performing Organization Address City/[facility] Co de Phone Number [facility] Department [place] [address] * Critical result callback Cardio chemistry (06/07/2022 5:12 PM CDT) Date Notified [id number] [facility] Time Notified 1850 [facility] Test name Troponin [facility] Called/Read Back Anali APARICIO [facility] Credentials [facility] Called By Ian Rodriguez [facility] Blood 06/07/2022 5:12 PM CDT 06/07/2022 6:10 PM CDT Catherine Adams MD LAB BLOOD ORDERABLES Final Result [facility] Department [place] [address] * (ABNORMAL) Troponin I high-sensitivity (06/07/2022 5:12 PM CDT) Trop I hs 2,704(C) <=35 ng/L [facility] Comment: Interpretive Data For further hscTnI resources including the diagnostic algorithm and an aid in interpretation, copy and paste this link: [email or web address].testcatalog.org/show/[email or web address] Current Interpretive Data last revised 2020. Blood 06/07/2022 5:12 PM CDT 06/07/2022 5:29 PM CDT Catherine Adams MD LAB BLOOD ORDERABLES Final Result Performing Organization Address City/[facility]/ZIP Co de Phone Number [facility] Department [place] [address] * Lactate (06/07/2022 5:12 PM CDT) Pathologist [facility] Lactate 1.3 0.7 - 2.0 mmol/L [facility] Blood 06/07/2022 5:12 PM CDT 06/07/2022 5:22 PM CDT Catherine Adams MD LAB BLOOD ORDERABLES Final Result Performing Organization Address [facility] de Phone Number [facility] Department [place] [address] * (ABNORMAL) eGFR (06/07/2022 5:08 PM CDT) Pathologist [facility] eGFR 5(L) 90 - 130 mL/min/1. 73 m2 [facility] Comment: Interpretive Data Reference Interval [...] interpretive data was last reviewed 2021. Blood 06/07/2022 5:08 PM CDT 06/07/2022 5:42 PM CDT us Conrad Weston Chi, MD LAB BLOOD ORDERABLES Ann Marie kramer Result [facility] Department [place] [address] * (ABNORMAL) Triglycerides (06/07/2022 5:08 PM CDT) Triglycerides 172(H) <=149 mg/dL [facility] Comment: Hemolyzed; result may be falsely elevated Interpretive Data Ages < or = 9 [...] Interpretive Data was last revised on 2018. Blood 06/07/2022 5:08 PM CDT 06/07/2022 5:33 PM CDT Result [facility] Catherine Adams MD LAB BLOOD ORDERABLES Final Result Performing Organization Address City/[facility] Co de Phone Number [facility] [place] [address] * (ABNORMAL) Hemoglobin total, central venous (06/07/2022 5:08 PM CDT) Hemoglobin total, CV 8.2(L) 13.0 - 17.5 g/dL [facility] Blood 06/07/2022 5:08 PM CDT 06/07/2022 5:22 PM CDT Narrative [facility] - 06/07/2022 5:25 PM CDT If using Miley Cardiac Output Method Result [facility] Catherine Adams MD LAB BLOOD ORDERABLES Final Result Performing Organization Address [facility] Co de Phone Number [facility] [place] [address] * Methemoglobin, central venous (06/07/2022 5:08 PM CDT) Methemoglobin, CV 2.1 % [facility] Comment: Interpretive Data No reference range established. Current interpretive data was last revised 2019. Blood 06/07/2022 5:08 PM CDT 06/07/2022 5:22 PM CDT Narrative [facility] - 06/07/2022 5:25 PM CDT If using Miley Cardiac Output Method Result [facility] Catherine Adams MD LAB BLOOD ORDERABLES Final Result Performing Organization Address City/[facility] Co de Phone Number [facility] [place] [address] * Carboxyhemoglobin, central venous (06/07/2022 5:08 PM CDT) [facility] Carboxyhemoglobin , CV 1.0 % [facility] Comment: Interpretive Data No reference range established. Current interpretive data was last revised 2019. Blood 06/07/2022 5:08 PM CDT 06/07/2022 5:22 PM CDT Narrative [facility] - 06/07/2022 5:26 PM CDT If using Miley Cardiac Output Method Catherine Adams MD LAB BLOOD ORDERABLES Final Result Performing Organization Address [facility] de Phone Number [facility] Department [place] [address] * Oxyhemoglobin, central venous (06/07/2022 5:08 PM CDT) [facility] Oxyhemoglobin, CV 66.6 % [facility] Comment: Interpretive Data No reference range established. Current interpretive data was last revised 2019. Blood 06/07/2022 5:08 PM CDT 06/07/2022 5:22 PM CDT Narrative [facility] - 06/07/2022 5:25 PM CDT If using Miley Cardiac Output Method Catherine Adams MD LAB BLOOD ORDERABLES Final Result Performing Organization Address City/[facility] de Phone Number [facility] Department [place] [address] * (ABNORMAL) Phosphorus (06/07/2022 5:08 PM CDT) Pathologist [facility] Phosphorus, pl 7.2(H) 2.3 - 4.5 mg/dL [facility] Comment:Hemolyzed; result ma y be falsely elevated Blood 06/07/2022 5:08 PM CDT 06/07/2022 5:33 PM CDT Conrad Weston Chi, MD LAB BLOOD ORDERABLES Ann Marie l Result Performing Organization Address City/[facility]/ZIP Co de Phone Number [facility] [place] [address] * Magnesium (06/07/2022 5:08 PM CDT) Pathologist [facility] Magnesium 2.2 1.4 - 2.5 mg/dL [facility] Blood 06/07/2022 5:08 PM CDT 06/07/2022 5:33 PM CDT Conrad Weston Chi, MD LAB BLOOD ORDERABLES Ann Marie l Result Performing Organization Address [facility] de Phone Number [facility] [place] [address] * (ABNORMAL) Comprehensive metabolic panel (06/07/2022 5:08 PM CDT) Pathologist [facility] Sodium 129(L) 135 - 145 mmol/L [facility] Potassium, pl See Comment 3.3 - 4.9 mmol/L [facility] Comment:Credited; Hemolyzed Specimen Chloride 87(L) 97 - 110 mmol/L [facility] CO2 21(L) 22 - 32 mmol/L [facility] Anion gap 21(H) 2 - 15 mmol/L [facility] BUN 80(H) 8 - 25 mg/dL [facility] Creatinine 10.36(H) 0.80 - 1.30 mg/dL [facility] Glucose 329(H) 70 - 199 mg/dL [facility] Comment: Interpretive Data Fasting glucose >/= [...] classification and Diagnosis of Diabetes Diabetes Care 2017;40 (Suppl. 1):S11. Current interpretive data was last revised 2017. Calcium 8.1(L) 8.5 - 10.3 mg/dL [facility] Bilirubin, total 0.8 0.1 - 1.2 mg/dL [facility] Protein, pl 6.0(L) 6.5 - 8.5 g/dL [facility] Albumin 2.5(L) 3.5 - 5.0 g/dL [facility] Alk phos 177(H) 40 - 130 Units/L [facility] Comment:Hemolyzed; result ma y be falsely decreased ALT See Comment 7 - 55 Units/L [facility] Comment:Credited; Hemolyzed Specimen AST See Comment 10 - 50 Units/L [facility] Comment:Credited; Hemolyzed Specimen Blood 06/07/2022 5:08 PM CDT 06/07/2022 5:33 PM CDT us Conrad Weston Chi, MD LAB BLOOD ORDERABLES Ann Marie l Result Performing Organization Address City/[facility] Co de Phone Number [facility] Department [place] [address] * (ABNORMAL) POCT glucose (06/07/2022 5:00 PM CDT) Glucose, POC 385(H) 70 - 199 mg/dL [facility] Glucose comment 1 Glu2: RN/ Notified [facility] Blood 06/07/2022 5:00 PM CDT 06/07/2022 5:00 PM CDT Catherine Adams MD LAB POCT ORDERABLES - DEVIC E Final Result Performing Organization Address City/[facility]/ZIP Co de Phone Number [facility] Department [place] [address] * ECG 12 lead (06/07/2022 4:59 PM CDT) [facility] Ventricular Rate EKG/Min 51 BPM [facility] Atrial Rate 51 BPM [facility] [place]-Interval (MSEC) 212 ms [facility] QRS-Interval (MSEC) 130 ms [facility] QT-Interval (MSEC) 580 ms [facility] QTc 534 ms [facility] P [place] 69 degrees [facility] R [place] -38 degrees [facility] T [place] 95 degrees [facility] Diagnosis Sinus bradycardia with 1st degree A-V block Left axis deviation Long QT interval Non-specific intra-ventricu lar conduction block Abnormal QRS-T angle, consider primary T wave abnormality Abnormal ECG When compared with ECG of 05-JUN-2022 14:52, QRS duration has increased Criteria for Septal infarct are no longer Present Nonspecific T wave abnormality now evident in Anterior leads Confirmed by JESS BUSTOS M.D ([id number]) on 06/08/2022 9:42:26 AM [facility] 06/07/2022 4:59 PM CDT 06/08/2022 9:42 AM CDT us Catherine Adams MD ECG ORDERABLES Final Resul t [facility] * MARIELLA MAJOR CORONARY (06/07/2022 3:57 PM CDT) Anatomical Region Laterality Modality X-Ray Angiograph y Narrative 06/07/2022 4:24 PM CDT Cardiac catheterization Interventional fellow: ??Dr. Fernando Talavera HPI 51-year-old morbidly obese male with a history of end-stage renal disease on peritoneal dialysis, hypertension diabetes hyperlipidemia and recent non ST elevation [place] now referred for complex PCI. ??Patient is followed at an outside hospital repetitive episodes of flash pulmonary edema/hypertensive urgency despite 3 medications. ??Recently underwent cardiac catheterization revealed a 90% ostial circumflex and a left-dominant circulation, 98% mid circumflex and a 70% om lesion. ??It is felt to be extremely high risk was transferred to [facility]. ?? He had hypoxemic respiratory arrest that required transfer to the MICU. ?? He has been dialyzed and diuresed as he makes modest amounts urine. ??He is also had right upper quadrant pain consistent with cholecystitis. ?? Subsequent referred for high-risk intervention. Procedure: ??Patient was prepped and draped in sterile fashion. ??2% local lidocaine anesthesia was utilized. ??Fentanyl and Versed were given as premedication. ??Optiray was used as a contrast agent. ??Aspirin and Plavix were given preprocedure. ??Patient was also treated for contrast reaction history. ??Using ultrasound directed micropuncture technique a 7 [place] 45 cm sheath placed in the right femoral artery over an [place] wire. ?? Subsequently, an 8 [place] sheath inserted into the left femoral vein with placement of a [place]-Liv catheter with the pulmonary artery. ??Heparin was administered to maintain ACT of 300 seconds or greater. ??Angioplasty was performed with a 7 Albanian EBU 3.5 guide catheter, 0.014 in military pilot 50 wire in the circumflex and a 0.014 in [place] wire in the LAD. ??The ostial circumflex, mid circumflex, obtuse marginal were dilated with 2.5 NC emerges up to 20 atmospheres. ??The marginal ulcer received an additional 3 mm NC emerge up to 18 atmospheres. ??The AV groove circumflex was treated with a 3 mm x 12 mm shockwave intravascular lithotripsy balloon with all 80 pulses delivered. ??The patient became hypotensive and bradycardic during balloon angioplasty. ??Anesthesia was prompt in intubating. ?? Multiple boluses of Jonn-Synephrine were administered with eventual starting of Levophed and epinephrine. ??Marginal was then stented with a 3 mm x 20 mm synergy drug-eluting stent post dilated up to 18 atmospheres. ?? The AV groove circumflex was stented with a 2.5 x 48 mm synergy drug-eluting stent post dilated with 3.25 and 3.5 NC emerges up to 20 atmospheres. ??The marginal was reentered with a whisper wire and pre-dilated with 1.5 mm balloon. ??Kissing balloons were then performed with a 2.75 NC emerge in the marginal and a 3.25 NC emerge in the AV groove circumflex. ??Intravascular ultrasound performed pre procedure and mid procedure. At completion of the intervention, right femoral artery sheath was exchanged for a 14 Albanian Impella sheath. ??An Impella CP was placed into the left ventricle producing 3.2-3.4 liters/minute flow. ??The peel-away sheath was removed and the permanent sheath inserted. ??Two 6 Albanian pro style were placed prior to sheath insertion with preserved sterilely. ?? Impella sheath was sewn in place as well as a [place]-Liv catheter. ?? Trialysis catheter was placed into the right internal jugular artery for facilitated fluid management. ??Patient was in critical condition on transferred back to the intensive care unit. Hemodynamics: ??PA 58/34 with a mean of 42, family capillary wedge pressure mean is 25 mm of mercury. ??The LVEDP was 29 mm of mercury. PCI of circumflex: ??Initial angiography reveals an ostial circumflex lesion of 90%. ??There is a large 1st obtuse marginal takes off with a 70% proximal narrowing. ??The bifurcation of the AV groove also has another 90% narrowing. ??Both of these are calcified. ??The LAD and circumflex were wired and the AV groove pre-dilated with a series of 2.5 mm NC balloons. ?? This was followed by a 3 mm shockwave intravascular lithotripsy balloon with all 80 pulses delivered. ??Intravascular ultrasound gave appropriate dimensions and length. ??There continued to be degradation of the 1st OM that required further predilatation with a 2.5 and 3 mm NC balloons. ?? Patient became sequentially more hypotensive and hypoxemic . ??Multiple boluses of Jonn-Synephrine were administered. ??Levophed and epinephrine were administered as intravenous drips. ??The patient was intubated. ??The OM was then stented with a 3 mm x 20 synergy and the circumflex with a 3 mm x 48 synergy post dilated with a 3.5 balloon. ??The OM was rewired pre-dilated and kissing balloons performed as above. ??This left no residual, no dissection VIPUL 3 flow. ??Upon completion of the case, the blood pressure improved on 2 pressors. ??It was therefore elected to proceed with Impella insertion with 2 pro style Perclose devices placed prophylactically. ??The pressor support was weaned further. ??Blood pressure was 1 20-140 systolic. ??The O2 saturations which had hovered at 50% were now 87-90% on an FiO2 of 100%. Lesion classification-this is a type C lesion with VIPUL 3 flow pre and post. ??It is a heavily calcified left dominant circumflex with bifurcation involvement. ??The OM is 18 mm long in the AV groove circumflex is 48 mm long. ??The syntax score is intermediate. ??The ostial circumflex is the culprit. ??There was no significant residual. Overall impression: 1. High-risk but successful PCI of left dominant circumflex and OM bifurcation with Synergy drug-eluting stents placed as above. 2. Cardiogenic shock and pulmonary edema resulting from PCI requiring pressor support, intubation and subsequent placement of Impella CP. 3. End-stage renal disease on peritoneal dialysis. 4. Morbid obesity/COPD. 5. Hypoxemic respiratory failure, recurrent. ?? Therapy recommendations: ??Patient be monitored in the ICU setting with Impella weaning as tolerated. ??Pressor support should be weaned quickly. ?? Trialysis catheter has been inserted for improved fluid management as a chest x-ray shows continued pulmonary edema despite previous fluid removal by peritoneal dialysis. ??Plavix should continue for 6 months ,aspirin indefinitely. ??Follow-up transthoracic echo should be performed prior to discharge. ??Please taper prednisone rapidly for contrast allergy. ?? Remaining management per CCU staff. ?? us Champ Osborne MD PhD CV CARDIAC CATH PROCEDURES Final Result * (ABNORMAL) POCT Activated clotting time, low range (06/07/2022 2:15 PM CDT) ACT 226(H) 123 - 168 sec [facility] Blood 06/07/2022 2:15 PM CDT 06/07/2022 2:15 PM CDT us Catherine Adams MD LAB POCT ORDERABLES - DEVIC E Final Result [facility] Department [place] [address] * (ABNORMAL) POC Blood Gas and Chemistries, Arterial - (06/07/2022 1:52 PM CDT) pH, Art POC 7.30(L) 7.35 - 7.45 [facility] pCO2, Art POC 42 35 - 45 mmHg [facility] pO2, Art POC 49(L) 83 - 108 mmHg [facility] Na, POC 132(L) 135 - 145 mmol/L [facility] K POC 4.1 3.3 - 4.9 mmol/L [facility] Comment: Interpretive Data This method is not able to assess for hemolysis, which may falsely increase potassium concentrations. If further testing is needed to evaluate this result, consider in-laboratory plasma potassium. Current Interpretive Data was last revised on 2022. Cl, POC 96(L) 97 - 110 mmol/L [facility] Ionized Ca, POC 4.62 4.50 - 5.10 mg/dL [facility] Glucose, POC 293(H) 70 - 199 mg/dL [facility] Lactate, POC 3.4(H) 0.7 - 2.2 mmol/L [facility] SO2 (uyen) arterial 78(L) 90 - 95 % [facility] Base excess, POC -5.5 mmol/L [facility] HCO3, Art POC 21 20 - 30 mmol/L [facility] Hct, POC 30.0(L) 41.4 - 51.6 % [facility] O2 Sat, Art POC (Calc) 80 % [facility] Total Hb, POC 9.9(L) 13.8 - 17.2 g/dL [facility] Blood 06/07/2022 1:52 PM CDT 06/07/2022 1:52 PM CDT us Conrad Weston Chi, MD LAB POCT ORDERABLES - DEV ICE Final Result [facility] Department [place] [address] * (ABNORMAL) POCT Activated clotting time, low range (06/07/2022 1:49 PM CDT) ACT 214(H) 123 - 168 sec [facility] Blood 06/07/2022 1:49 PM CDT 06/07/2022 1:49 PM CDT us Catherine Adams MD LAB POCT ORDERABLES - DEVIC E Final Result [facility] Department [place] [address] * (ABNORMAL) POC Blood Gas and Chemistries, Arterial - (06/07/2022 1:31 PM CDT) pH, Art POC 7.16(C) 7.35 - 7.45 [facility] pCO2, Art POC 53(H) 35 - 45 mmHg [facility] pO2, Art POC 41(L) 83 - 108 mmHg [facility] Na, POC 130(L) 135 - 145 mmol/L [facility] K POC 3.5 3.3 - 4.9 mmol/L [facility] Comment: Interpretive Data This method is not able to assess for hemolysis, which may falsely increase potassium concentrations. If further testing is needed to evaluate this result, consider in-laboratory plasma potassium. Current Interpretive Data was last revised on 2022. Cl, POC 93(L) 97 - 110 mmol/L [facility] Ionized Ca, POC 4.29(L) 4.50 - 5.10 mg/dL [facility] Glucose, POC 300(H) 70 - 199 mg/dL [facility] Lactate, POC 5.3(C) 0.7 - 2.2 mmol/L [facility] SO2 (uyen) arterial 59(C) 90 - 95 % [facility] Base excess, POC -10.1 mmol/L [facility] HCO3, Art POC 19(L) 20 - 30 mmol/L [facility] Hct, POC 31.0(L) 41.4 - 51.6 % [facility] O2 Sat, Art POC (Calc) 60 % [facility] Total Hb, POC 10.2(L) 13.8 - 17.2 g/dL [facility] Blood 06/07/2022 1:31 PM CDT 06/07/2022 1:31 PM CDT Conrad Weston Chi, MD LAB POCT ORDERABLES - DEV ICE Final Result Performing Organization Address [facility] Co de Phone Number [facility] [place] [address] * (ABNORMAL) POCT Activated clotting time, low range (06/07/2022 12:47 PM CDT) ACT 289(H) 123 - 168 sec [facility] Blood 06/07/2022 12:4 7 PM CDT 06/07/2022 12:47 PM CDT Catherine Adams MD LAB POCT ORDERABLES - DEVIC E Final Result Performing Organization Address [facility] de Phone Number [facility] Department [place] [address] * (ABNORMAL) POCT Activated clotting time, low range (06/07/2022 12:32 PM CDT) ACT 249(H) 123 - 168 sec [facility] Blood 06/07/2022 12:3 2 PM CDT 06/07/2022 12:32 PM CDT Catherine Adams MD LAB POCT ORDERABLES - DEVIC E Final Result Performing Organization Address [facility] Co de Phone Number [facility] [place] [address] * POCT glucose (06/07/2022 11:27 AM CDT) [facility] Glucose, POC 179 70 - 199 mg/dL [facility] Blood 06/07/2022 11:2 7 AM CDT 06/07/2022 11:27 AM CDT Conrad Westno Chi, MD LAB POCT ORDERABLES - DEV ICE Final Result [facility] [place] [address] * (ABNORMAL) aPTT (06/07/2022 9:59 AM CDT) aPTT 71(H) 27 - 37 sec [facility] Comment: Interpretive Data Therapeutic heparin range: 60.0 - 94.0 seconds. Based on correlation with therapeutic heparin activity range of 0.3-0.7 Units/mL. Current interpretive data was last revised on 2020. Blood 06/07/2022 9:59 AM CDT 06/07/2022 10:19 AM CDT Narrative [facility] - 06/07/2022 10:46 AM CDT Draw STAT PTT 6 hrs after initiation of heparin infusion, draw STAT PTT 6 hours after each dose/rate change, and every 6 hours until 2 consecutive PTTs are within therapeutic range. Once two consecutive PTT's are therapeutic (60-94.9 seconds), then draw PTT every AM until heparin is discontinued. Conrad Weston Chi, MD LAB BLOOD ORDERABLES Ann Marie l Result Performing Organization Address [facility] Co de Phone Number [facility] [place] [address] * (ABNORMAL) POCT glucose (06/07/2022 7:59 AM CDT) Glucose, POC 247(H) 70 - 199 mg/dL [facility] Blood 06/07/2022 7:59 AM CDT 06/07/2022 7:59 AM CDT Conrad Weston Chi, MD LAB POCT ORDERABLES - DEV ICE Final Result Performing Organization Address City/[facility]/ZIP Co de Phone Number [facility] [place] [address] * (ABNORMAL) POCT glucose (06/07/2022 4:17 AM CDT) Glucose, POC 239(H) 70 - 199 mg/dL [facility] Blood 06/07/2022 4:17 AM CDT 06/07/2022 4:17 AM CDT Conrad Weston Chi, MD LAB POCT ORDERABLES - DEV ICE Final Result Performing Organization Address [facility]/ZIP Co de Phone Number [facility] Department [place] [address] * (ABNORMAL) aPTT (06/07/2022 4:17 AM CDT) aPTT 57(H) 27 - 37 sec [facility] Comment: Interpretive Data Therapeutic heparin range: 60.0 - 94.0 seconds. Based on correlation with therapeutic heparin activity range of 0.3-0.7 Units/mL. Current interpretive data was last revised on 2020. Blood 06/07/2022 4:17 AM CDT 06/07/2022 4:37 AM CDT Narrative [facility] - 06/07/2022 5:01 AM CDT Draw STAT PTT 6 hrs after initiation of heparin infusion, draw STAT PTT 6 hours after each dose/rate change, and every 6 hours until 2 consecutive PTTs are within therapeutic range. Once two consecutive PTT's are therapeutic (60-94.9 seconds), then draw PTT every AM until heparin is discontinued. Conrad Weston Chi, MD LAB BLOOD ORDERABLES Ann Marie l Result Performing Organization Address City/[facility]/ZIP Co de Phone Number [facility] Department [place] [address] * POCT glucose (06/06/2022 11:51 PM CDT) Glucose, POC 170 70 - 199 mg/dL [facility] Blood 06/06/2022 11:5 1 PM CDT 06/06/2022 11:51 PM CDT Conrad Weston Chi, MD LAB POCT ORDERABLES - DEV ICE Final Result Performing Organization Address [facility] Co de Phone Number [facility] Department [place] [address] * POCT glucose (06/06/2022 8:18 PM CDT) Glucose, POC 123 70 - 199 mg/dL [facility] Blood 06/06/2022 8:18 PM CDT 06/06/2022 8:18 PM CDT Conrad Weston Chi, MD LAB POCT ORDERABLES - DEV ICE Final Result Performing Organization Address [facility] de Phone Number [facility] Department [place] [address] * (ABNORMAL) eGFR (06/06/2022 8:16 PM CDT) Pathologist [facility] eGFR 5(L) 90 - 130 mL/min/1. 73 m2 [facility] Comment: Interpretive Data Reference Interval [...] interpretive data was last reviewed 2021. Blood 06/06/2022 8:16 PM CDT 06/06/2022 8:41 PM CDT us Conrad Weston Chi, MD LAB BLOOD ORDERABLES Ann Marie kramer Result [facility] Department [place] [address] * (ABNORMAL) Differential, auto (06/06/2022 8:16 PM CDT) Neutrophil abs 9.8(H) 1.7 - 6.5 K/cumm [facility] Imm gran abs 0.2(H) 0.0 - 0.1 K/cumm [facility] Lymphocyte abs 0.7(L) 0.8 - 3.3 K/cumm [facility] Monocyte abs 0.9(H) 0.2 - 0.8 K/cumm [facility] Eosinophil abs 0.1 0.0 - 0.5 K/cumm [facility] Basophil abs 0.0 0.0 - 0.1 K/cumm [facility] Neutrophil pct 84.4 % [facility] Comment: Interpretive Data Percent cell count reference ranges are not reported, since discordance with absolute values may lead to misinterpretation of CBC data. Current Interpretive Data was last revised on 2017. Imm gran pct 1.3 % [facility] Comment: Interpretive Data Percent cell count reference ranges are not reported, since discordance with absolute values may lead to misinterpretation of CBC data. Current Interpretive Data was last revised on 2017. Lymphocyte pct 6.0 % [facility] Comment: Interpretive Data Percent cell count reference ranges are not reported, since discordance with absolute values may lead to misinterpretation of CBC data. Current Interpretive Data was last revised on 2017. Monocyte pct 7.6 % [facility] Comment: Interpretive Data Percent cell count reference ranges are not reported, since discordance with absolute values may lead to misinterpretation of CBC data. Current Interpretive Data was last revised on 2017. Eosinophil pct 0.5 % [facility] Comment: Interpretive Data Percent cell count reference ranges are not reported, since discordance with absolute values may lead to misinterpretation of CBC data. Current Interpretive Data was last revised on 2017. Basophil pct 0.2 % [facility] Comment: Interpretive Data Percent cell count reference ranges are not reported, since discordance with absolute values may lead to misinterpretation of CBC data. Current Interpretive Data was last revised on 2017. Blood 06/06/2022 8:16 PM CDT 06/06/2022 8:41 PM CDT Conrad Weston Chi, MD LAB BLOOD ORDERABLES Ann Marie l Result Performing Organization Address City/[facility]/ZIP Co de Phone Number [facility] Department [place] [address] * (ABNORMAL) Phosphorus (06/06/2022 8:16 PM CDT) Phosphorus, pl 6.6(H) 2.3 - 4.5 mg/dL [facility] Blood 06/06/2022 8:16 PM CDT 06/06/2022 8:41 PM CDT Conrad Weston Chi, MD LAB BLOOD ORDERABLES Ann Marie l Result [facility] Department [place] [address] * Magnesium (06/06/2022 8:16 PM CDT) Magnesium 2.1 1.4 - 2.5 mg/dL [facility] Blood 06/06/2022 8:16 PM CDT 06/06/2022 8:41 PM CDT Conrad Weston Chi, MD LAB BLOOD ORDERABLES Ann Marie kramer Result Performing Organization Address [facility] Co de Phone Number [facility] Department [place] [address] * (ABNORMAL) CBC with auto differential (06/06/2022 8:16 PM CDT) Pathologist [facility] WBC 11.6(H) 3.8 - 9.9 K/cumm [facility] Hgb 9.3(L) 13.0 - 17.5 g/dL [facility] Hct 26.4(L) 38.9 - 50.3 % [facility] Plt 207 150 - 400 K/cumm [facility] MPV 11.1 9.1 - 12.3 fL [facility] RBC 2.99(L) 4.30 - 5.80 M/cumm [facility] MCV 88.3 81.3 - 96.4 fL [facility] MCH 31.1 27.1 - 33.3 pg [facility] MCHC 35.2 32.3 - 35.7 g/dL [facility] RDW CV 13.1 11.1 - 14.9 % [facility] RDW SD 42.2 35.7 - 48.1 fL [facility] NRBC abs 0.00 0.00 - 0.01 K/cumm [facility] Blood 06/06/2022 8:16 PM CDT 06/06/2022 8:41 PM CDT Conrad Weston Chi, MD LAB BLOOD ORDERABLES Ann Marie l Result Performing Organization Address City/[facility]/ZIP Co de Phone Number [facility] Department [place] [address] * (ABNORMAL) Comprehensive metabolic panel (06/06/2022 8:16 PM CDT) Sodium 132(L) 135 - 145 mmol/L [facility] Potassium, pl 3.4 3.3 - 4.9 mmol/L [facility] Chloride 89(L) 97 - 110 mmol/L [facility] CO2 25 22 - 32 mmol/L [facility] Anion gap 18(H) 2 - 15 mmol/L [facility] BUN 82(H) 8 - 25 mg/dL [facility] Creatinine 10.45(H) 0.80 - 1.30 mg/dL [facility] Glucose 112 70 - 199 mg/dL [facility] Comment: Interpretive Data Fasting glucose >/= [...] classification and Diagnosis of Diabetes Diabetes Care 2017;40 (Suppl. 1):S11. Current interpretive data was last revised 2017. Calcium 7.5(L) 8.5 - 10.3 mg/dL [facility] Bilirubin, total 0.7 0.1 - 1.2 mg/dL [facility] Protein, pl 6.5 6.5 - 8.5 g/dL [facility] Albumin 3.2(L) 3.5 - 5.0 g/dL [facility] Alk phos 135(H) 40 - 130 Units/L [facility] ALT 40 7 - 55 Units/L [facility] AST 45 10 - 50 Units/L [facility] Blood 06/06/2022 8:16 PM CDT 06/06/2022 8:41 PM CDT us Conrad Weston Chi, MD LAB BLOOD ORDERABLES Ann Marie kramer Result [facility] Department [place] [address] * POCT glucose (06/06/2022 5:53 PM CDT) Glucose, POC 99 70 - 199 mg/dL [facility] Blood 06/06/2022 5:53 PM CDT 06/06/2022 5:53 PM CDT Conrad Weston Chi, MD LAB POCT ORDERABLES - DEV ICE Final Result Performing Organization Address City/[facility] Co de Phone Number [facility] Department [place] [address] * POCT glucose (06/06/2022 11:38 AM CDT) Glucose, POC 108 70 - 199 mg/dL [facility] Blood 06/06/2022 11:3 8 AM CDT 06/06/2022 11:38 AM CDT Conrad Weston Chi, MD LAB POCT ORDERABLES - DEV ICE Final Result Performing Organization Address City/[facility] de Phone Number [facility] [place] [address] * (ABNORMAL) aPTT (06/06/2022 10:26 AM CDT) aPTT 71(H) 27 - 37 sec [facility] Comment: Interpretive Data Therapeutic heparin range: 60.0 - 94.0 seconds. Based on correlation with therapeutic heparin activity range of 0.3-0.7 Units/mL. Current interpretive data was last revised on 2020. Blood 06/06/2022 10:2 6 AM CDT 06/06/2022 10:37 AM CDT Narrative [facility] - 06/06/2022 11:02 AM CDT Draw STAT PTT 6 hrs after initiation of heparin infusion, draw STAT PTT 6 hours after each dose/rate change, and every 6 hours until 2 consecutive PTTs are within therapeutic range. Once two consecutive PTT's are therapeutic (60-94.9 seconds), then draw PTT every AM until heparin is discontinued. Conrad Weston Chi, MD LAB BLOOD ORDERABLES Ann Marie l Result Performing Organization Address City/[facility]/ZIP Co de Phone Number [facility] [place] [address] * POCT glucose (06/06/2022 8:06 AM CDT) Glucose, POC 109 70 - 199 mg/dL [facility] Blood 06/06/2022 8:06 AM CDT 06/06/2022 8:06 AM CDT Conrad Weston Chi, MD LAB POCT ORDERABLES - DEV ICE Final Result Performing Organization Address [facility] de Phone Number [facility] [place] [address] * XR Chest 1 View (06/06/2022 4:45 AM CDT) Anatomical Region Laterality Modality Body, Chest N/A Computed Radiogr aphy 06/06/2022 11:3 8 AM CDT Impressions 06/06/2022 11:43 AM CDT The current study is compared with the prior radiograph dated 06/05/2022 3:14 PM. The cardiomediastinal silhouette is stable. There are persistent diffuse bilateral airspace opacities compatible with moderate to severe pulmonary edema. The extent of the opacities is similar to slightly increased compared to the prior examination. No definite pleural effusion, though the left costophrenic angle is excluded. No pneumothorax. Dictated by: Jersey Morales MD The radiology attending physician has personally reviewed this study, and had reviewed and/or edited this written report and agrees with it. Electronically signed by: Saurav Emerson M.D. Narrative 06/06/2022 11:43 AM CDT EXAMINATION: 1 view chest radiograph Procedure Note Saurav Emerson MD - 06/06/2022 EXAMINATION: 1 view chest radiograph IMPRESSION: The current study is compared with the prior radiograph dated 06/05/2022 3:14 PM. The cardiomediastinal silhouette is stable. There are persistent diffuse bilateral airspace opacities compatible with moderate to severe pulmonary edema. The extent of the opacities is similar to slightly increased compared to the prior examination. No definite pleural effusion, though the left costophrenic angle is excluded. No pneumothorax. Dictated by: Jersey Morales MD The radiology attending physician has personally reviewed this study, and had reviewed and/or edited this written report and agrees with it. Electronically signed by: Saurav Emerson M.D. Conrad Weston Chi, MD IMG XR PROCEDURES Final R esult * POCT glucose (06/06/2022 3:49 AM CDT) Glucose, POC 164 70 - 199 mg/dL [facility] Blood 06/06/2022 3:49 AM CDT 06/06/2022 3:49 AM CDT Conrad Weston Chi, MD LAB POCT ORDERABLES - DEV ICE Final Result [facility] Department [place] [address] * (ABNORMAL) aPTT (06/06/2022 3:41 AM CDT) aPTT 65(H) 27 - 37 sec [facility] Comment: Interpretive Data Therapeutic heparin range: 60.0 - 94.0 seconds. Based on correlation with therapeutic heparin activity range of 0.3-0.7 Units/mL. Current interpretive data was last revised on 2020. Blood 06/06/2022 3:41 AM CDT 06/06/2022 4:23 AM CDT Narrative [facility] - 06/06/2022 4:32 AM CDT Draw STAT PTT 6 hrs after initiation of heparin infusion, draw STAT PTT 6 hours after each dose/rate change, and every 6 hours until 2 consecutive PTTs are within therapeutic range. Once two consecutive PTT's are therapeutic (60-94.9 seconds), then draw PTT every AM until heparin is discontinued. Conrad Weston Chi, MD LAB BLOOD ORDERABLES Ann Marie l Result Performing Organization Address [facility] de Phone Number [facility] Department [place] [address] * (ABNORMAL) Blood gas, arterial (06/06/2022 1:14 AM CDT) pH, Art 7.39 7.35 - 7.45 [facility] PCO2, Arterial 37 35 - 45 mmHg [facility] PO2, Arterial 169(H) 83 - 108 mmHg [facility] HCO3 Art (Calculated) 23 20 - 30 mmol/L [facility] BE, art -2 mmol/L [facility] Comment: Interpretive Data No Reference Range Established Current Interpretive Data was last revised on 2017 O2 Sat Art (Measured) 99(H) 90 - 95 % [facility] Blood 06/06/2022 1:14 AM CDT 06/06/2022 1:29 AM CDT Conrad Weston Chi, MD LAB BLOOD ORDERABLES Ann Marie l Result Performing Organization Address [facility] de Phone Number [facility] Department [place] [address] * POCT glucose (06/06/2022 12:01 AM CDT) Glucose, POC 192 70 - 199 mg/dL [facility] Blood 06/06/2022 12:0 1 AM CDT 06/06/2022 12:01 AM CDT Result [facility] Conrad Weston Chi, MD LAB POCT ORDERABLES - DEV ICE Final Result Performing Organization Address [facility] de Phone Number [facility] Department [place] [address] * XR Abdomen Ap 1 Vw (06/05/2022 11:30 PM CDT) Anatomical Region Laterality Modality Body, Abdomen N/A Computed Radiogr aphy 06/06/2022 9:30 AM CDT Impressions 06/06/2022 11:54 AM CDT A single view of the abdomen is submitted for evaluation. The pelvis is excluded from the [id number] and unavailable for interpretation. ??A rounded density projecting over the left upper quadrant may be external to the patient. Bowel within the imaged upper abdomen is normal in caliber. Dictated by: Shiva Anaya MD The radiology attending physician has personally reviewed this study, and had reviewed and/or edited this written report and agrees with it. Electronically signed by: Kameron Muñoz M.D. Narrative 06/06/2022 11:54 AM CDT EXAMINATION: Abdomen, one view. HISTORY: Abdominal distention and tenderness COMPARISON: CT abdomen pelvis 06/02/2022 Procedure Note Kameron Muñoz MD - 06/06/2022 EXAMINATION: Abdomen, one view. HISTORY: Abdominal distention and tenderness COMPARISON: CT abdomen pelvis 06/02/2022 IMPRESSION: A single view of the abdomen is submitted for evaluation. The pelvis is excluded from the [id number] and unavailable for interpretation. A rounded density projecting over the left upper quadrant may be external to the patient. Bowel within the imaged upper abdomen is normal in caliber. Dictated by: Shiva Anaya MD The radiology attending physician has personally reviewed this study, and had reviewed and/or edited this written report and agrees with it. Electronically signed by: Kameron Muñoz M.D. Conrad Weston Chi, MD IMG XR PROCEDURES Final R esult * POCT glucose (06/05/2022 9:13 PM CDT) Glucose, POC 195 70 - 199 mg/dL [facility] Blood 06/05/2022 9:13 PM CDT 06/05/2022 9:13 PM CDT us Conrad Weston Chi, MD LAB POCT ORDERABLES - DEV ICE Final Result Performing Organization Address [facility]/ZIP Co de Phone Number [facility] Department [place] [address] * (ABNORMAL) eGFR (06/05/2022 8:47 PM CDT) eGFR 6(L) 90 - 130 mL/min/1. 73 m2 [facility] Comment: Interpretive Data Reference Interval [...] interpretive data was last reviewed 2021. Blood 06/05/2022 8:47 PM CDT 06/05/2022 9:46 PM CDT us Champ Osborne MD PhD LAB BLOOD ORDERABLES Final Result Performing Organization Address City/[facility]/ZIP Co de Phone Number [facility] Department [place] [address] * (ABNORMAL) Urinalysis, microscopic only (06/05/2022 8:47 PM CDT) Pathologist [facility] WBC, ur 6-10(A) 0 - 5 /HPF [facility] RBC, ur >50(A) 0 - 2 /HPF [facility] Epithelial cells, squamous, ur 1-5 0 - 5 /HPF [facility] Epithelial cells, transitional, ur 1-5 0 - 0 /HPF [facility] Bacteria, ur 2+(A) [facility] Mucous, ur Present(A) [facility] Hyaline casts, ur 11-20(A) 0 - 10 /LPF [facility] Culture Reflex Comment Reflex conditions for urine culture (WBC >10) not met. [facility] Urine 06/05/2022 8:47 PM CDT 06/05/2022 9:32 PM CDT Conrad Weston Chi, MD LAB URINE ORDERABLES Ann Marie kramer Result [facility] Department [place] [address] * (ABNORMAL) Differential, auto (06/05/2022 8:47 PM CDT) Pathologist [facility] Neutrophil abs 7.7(H) 1.7 - 6.5 K/cumm [facility] Imm gran abs 0.1 0.0 - 0.1 K/cumm [facility] Lymphocyte abs 0.5(L) 0.8 - 3.3 K/cumm [facility] Monocyte abs 0.7 0.2 - 0.8 K/cumm [facility] Eosinophil abs 0.0 0.0 - 0.5 K/cumm [facility] Basophil abs 0.0 0.0 - 0.1 K/cumm [facility] Neutrophil pct 85.3 % [facility] Comment: Interpretive Data Percent cell count reference ranges are not reported, since discordance with absolute values may lead to misinterpretation of CBC data. Current Interpretive Data was last revised on 2017. Imm gran pct 1.3 % [facility] Comment: Interpretive Data Percent cell count reference ranges are not reported, since discordance with absolute values may lead to misinterpretation of CBC data. Current Interpretive Data was last revised on 2017. Lymphocyte pct 5.8 % [facility] Comment: Interpretive Data Percent cell count reference ranges are not reported, since discordance with absolute values may lead to misinterpretation of CBC data. Current Interpretive Data was last revised on 2017. Monocyte pct 7.5 % [facility] Comment: Interpretive Data Percent cell count reference ranges are not reported, since discordance with absolute values may lead to misinterpretation of CBC data. Current Interpretive Data was last revised on 2017. Eosinophil pct 0.0 % [facility] Comment: Interpretive Data Percent cell count reference ranges are not reported, since discordance with absolute values may lead to misinterpretation of CBC data. Current Interpretive Data was last revised on 2017. Basophil pct 0.1 % [facility] Comment: Interpretive Data Percent cell count reference ranges are not reported, since discordance with absolute values may lead to misinterpretation of CBC data. Current Interpretive Data was last revised on 2017. Blood 06/05/2022 8:47 PM CDT 06/05/2022 9:45 PM CDT Champ Osborne MD PhD LAB BLOOD ORDERABLES Final Result [facility] Department [place] [address] * (ABNORMAL) Blood gas, arterial (06/05/2022 8:47 PM CDT) pH, Art 7.38 7.35 - 7.45 [facility] PCO2, Arterial 37 35 - 45 mmHg [facility] PO2, Arterial 76(L) 83 - 108 mmHg [facility] HCO3 Art (Calculated) 22 20 - 30 mmol/L [facility] BE, art -3 mmol/L [facility] Comment: Interpretive Data No Reference Range Established Current Interpretive Data was last revised on 2017 O2 Sat Art (Measured) 94 90 - 95 % [facility] Blood 06/05/2022 8:47 PM CDT 06/05/2022 9:32 PM CDT Conrad Weston Chi, MD LAB BLOOD ORDERABLES Ann Marie l Result Performing Organization Address [facility] Phone Number [facility] [place] [address] * (ABNORMAL) Troponin I high-sensitivity (06/05/2022 8:47 PM CDT) Pathologist [facility] Trop I hs 3,996(C) <=35 ng/L [facility] Comment: Previous critical value noted within 48 hours ago. Interpretive Data For further [facility] resources including the diagnostic algorithm and an aid in interpretation, copy and paste this link: [email or web address] Current Interpretive Data last revised 2020. Blood 06/05/2022 8:47 PM CDT 06/05/2022 9:47 PM CDT Conrad Weston Chi, MD LAB BLOOD ORDERABLES Ann Marie l Result Performing Organization Address [facility] de Phone Number [facility] [place] [address] * (ABNORMAL) Urinalysis reflex to microscopic and culture Urine (06/05/2022 8:47 PM CDT) Color, ur Yellow Yellow [facility] Clarity, ur Cloudy(A) Clear [facility] Specific gravity, ur 1.037(H) 1.003 - 1.030 [facility] pH, urine 6.0 [facility] Protein, ur ql 3+(A) Negative [facility] Glucose, ur ql 3+(A) Negative [facility] Ketones, ur Negative Negative [facility] Bilirubin, ur Negative Negative [facility] Blood, ur 3+(A) Negative [facility] Urobilinogen, ur <2.0 <2.0 mg/dL [facility] Nitrite, ur Negative Negative [facility] Leukocyte esterase, ur Negative Negative [facility] UA reflex comment Reflex to microscopic UA will be performed. [facility] Urine 06/05/2022 8:47 PM CDT 06/05/2022 8:47 PM CDT Narrative [facility] - 06/05/2022 9:49 PM CDT ?? Urine pH is affected by diet, medications, systemic acid-base disturbances, and renal tubular function. ??pH may affect urinary stone formation. ??For example, urine pH below 6.0 may help reduce the tendency for calcium phosphate stones and pH greater than 6.0 may reduce the tendency for uric acid stone formation. Source: [facility] [employer]. Last revised 08-31-2017 Conrad Weston Chi, MD LAB MICROBIOLOGY - GENERA L ORDERABLES Final Result Performing Organization Address City/[facility]/ZIP Co de Phone Number [facility] Department [place] [address] * (ABNORMAL) Phosphorus (06/05/2022 8:47 PM CDT) Phosphorus, pl 6.5(H) 2.3 - 4.5 mg/dL [facility] Blood 06/05/2022 8:47 PM CDT 06/05/2022 9:46 PM CDT Conrad Weston Chi, MD LAB BLOOD ORDERABLES Ann Marie l Result [facility] Department [place] [address] * Magnesium (06/05/2022 8:47 PM CDT) Magnesium 1.9 1.4 - 2.5 mg/dL [facility] Blood 06/05/2022 8:47 PM CDT 06/05/2022 9:46 PM CDT Conrad Weston Chi, MD LAB BLOOD ORDERABLES Ann Marie l Result Performing Organization Address [facility] Co de Phone Number [facility] Department [place] [address] * (ABNORMAL) CBC with auto differential (06/05/2022 8:47 PM CDT) Pathologist [facility] WBC 9.1 3.8 - 9.9 K/cumm [facility] Hgb 9.3(L) 13.0 - 17.5 g/dL [facility] Hct 26.0(L) 38.9 - 50.3 % [facility] Plt 201 150 - 400 K/cumm [facility] MPV 11.3 9.1 - 12.3 fL [facility] RBC 2.95(L) 4.30 - 5.80 M/cumm [facility] MCV 88.1 81.3 - 96.4 fL [facility] MCH 31.5 27.1 - 33.3 pg [facility] MCHC 35.8(H) 32.3 - 35.7 g/dL [facility] RDW CV 12.6 11.1 - 14.9 % [facility] RDW SD 40.7 35.7 - 48.1 fL [facility] NRBC abs 0.00 0.00 - 0.01 K/cumm [facility] Blood 06/05/2022 8:47 PM CDT 06/05/2022 9:45 PM CDT Conrad Weston Chi, MD LAB BLOOD ORDERABLES Ann Marie l Result Performing Organization Address [facility]/ZIP Co de Phone Number [facility] Department [place] [address] * (ABNORMAL) Comprehensive metabolic panel (06/05/2022 8:47 PM CDT) Pathologist [facility] Sodium 132(L) 135 - 145 mmol/L [facility] Potassium, pl 3.6 3.3 - 4.9 mmol/L [facility] Chloride 90(L) 97 - 110 mmol/L [facility] CO2 25 22 - 32 mmol/L [facility] Anion gap 17(H) 2 - 15 mmol/L [facility] BUN 84(H) 8 - 25 mg/dL [facility] Creatinine 9.77(H) 0.80 - 1.30 mg/dL [facility] Glucose 180 70 - 199 mg/dL [facility] Comment: Interpretive Data Fasting glucose >/= [...] classification and Diagnosis of Diabetes Diabetes Care 2017;40 (Suppl. 1):S11. Current interpretive data was last revised 2017. Calcium 7.8(L) 8.5 - 10.3 mg/dL [facility] Bilirubin, total 0.6 0.1 - 1.2 mg/dL [facility] Protein, pl 6.3(L) 6.5 - 8.5 g/dL [facility] Albumin 3.4(L) 3.5 - 5.0 g/dL [facility] Alk phos 126 40 - 130 Units/L [facility] ALT 43 7 - 55 Units/L [facility] AST 46 10 - 50 Units/L [facility] Blood 06/05/2022 8:47 PM CDT 06/05/2022 9:46 PM CDT us Conrad Weston Chi, MD LAB BLOOD ORDERABLES Ann Marie kramer Result [facility] [place] [address] * Cell Differential, Body Fluid (06/05/2022 8:36 PM CDT) Total cells diffed 100 cells [facility] Comment: Interpretive Data Unless otherwise specified, the reference range and other method performance specifications have not been established for CSF/Body Fluid tests. ??The test results should be integrated into the clinical context for interpretation. Current interpretive data was last revised on 2019. Neutrophils, fld 4 % [facility] Lymphs, fld 9 % [facility] Monocyte, fld 68 % [facility] Macrophages, fld 18 % [facility] Mesothelial cells, fld 1 % [facility] Fluid 06/05/2022 8:36 PM CDT 06/05/2022 9:01 PM CDT Conrad Weston Chi, MD LAB BODY FLUIDS AND STOOL S ORDERABLES Final Result [facility] Department [place] [address] * Aerobic and anaerobic culture and gram stain Peritoneal dialysis fluid Abdominal (06/05/2022 8:36 PM CDT) Direct Specimen Exam Stain: Cytospin Gram stain shows: No polymorphonuclear leukocytes seen. Other cellular material present. No organisms seen. [facility] Report Final Report: No growth [facility] Peritoneal dialysis fluid (Abdominal) 06/05/2022 8:36 PM CDT 06/05/2022 11:56 PM CDT Narrative [facility] - 06/11/2022 1:37 PM CDT Testing performed by [facility] ([phone]) Specimens submitted from normally sterile body sites will have all bacterial morphotypes identified. Specimens that contain grossly mixed stone and/or are from body sites that are not normally sterile will be examined for Staphylococcus aureus, Pseudomonas aeruginosa, beta-hemolytic strep, vancomycin-resistant Enterococcus, Bacteroides, Parabacteroides, Clostridium perfringens and fungus. If any of these are isolated, the organism will be reported. Current interpretive data was last revised on 2019. Conrad Weston Chi, MD LAB MICROBIOLOGY - GENERA L ORDERABLES Final Result Performing Organization Address [facility] Co de Phone Number [facility] [place] [address] * Cell count with reflex to differential, body fluid (06/05/2022 8:36 PM CDT) Specimen type, fld Peritoneal [facility] Color, fld Straw [facility] Clarity, fld Clear Clear [facility] Nucleated cells, fld 11 /cumm [facility] Comment: Interpretive Data Unless otherwise specified, the reference range and other method performance specifications have not been established for CSF/Body Fluid tests. ??The test results should be integrated into the clinical context for interpretation. Current interpretive data was last revised on 2019. RBC, fld 0 /cumm [facility] Fluid 06/05/2022 8:36 PM CDT 06/05/2022 9:01 PM CDT us Conrad Weston Chi, MD LAB BODY FLUIDS AND STOOL S ORDERABLES Final Result Performing Organization Address [facility] [place] [address] * Lipase (06/05/2022 6:39 PM CDT) Pathologist [facility] Lipase 14 10 - 99 Units/L [facility] Blood 06/05/2022 6:39 PM CDT 06/05/2022 6:53 PM CDT Conrad Weston Chi, MD LAB BLOOD ORDERABLES Ann Marie l Result Performing Organization Address [facility] Co de Phone Number [facility] [place] [address] * (ABNORMAL) aPTT (06/05/2022 6:34 PM CDT) aPTT 38(H) 27 - 37 sec [facility] Comment: Interpretive Data Therapeutic heparin range: 60.0 - 94.0 seconds. Based on correlation with therapeutic heparin activity range of 0.3-0.7 Units/mL. Current interpretive data was last revised on 2020. Blood 06/05/2022 6:34 PM CDT 06/05/2022 6:40 PM CDT us Conrad Weston Chi, MD LAB BLOOD ORDERABLES Ann Marie l Result [facility] Department [place] [address] * US RUQ (06/05/2022 6:12 PM CDT) Anatomical Region Laterality Modality Abdomen N/A Ultrasound 06/05/2022 7:06 PM CDT Impressions 06/06/2022 7:59 AM CDT Sonographic findings concerning for cholecystitis. Limited evaluation of sonographic Jade's sign. Consider hepatobiliary nuclear scintigraphy / HIDA scan for more complete evaluation. Dictated by: Ponce Garcia M.D. The radiology attending physician has personally reviewed this study, and had reviewed and/or edited this written report and agrees with it. Electronically signed by: Joyce Carbone M.D., Ph.D Narrative 06/06/2022 7:59 AM CDT EXAMINATION: US RUQ HISTORY: Request to evaluate for ascending cholangitis, cholelithiasis, gallbladder wall thickening, RUQ US at OSH indeterminate COMPARISON: Outside hospital CT abdomen pelvis dated 06/02/2022, outside hospital abdominal ultrasound dated 06/03/2022 FINDINGS: ?? Of note, the examination is slightly limited by the patient's body habitus. Liver: The echotexture is normal. ??The echogenicity is normal. There is no surface nodularity. No focal solid lesions are visualized. ?? Gallbladder: The gallbladder is enlarged. There are stones and sludge within the gallbladder. There is gallbladder wall thickening. There is pericholecystic fluid. The sonographic Jade's sign is equivocal. Bile Duct: Within the limitations of this examination, there is no intrahepatic bile duct dilatation. The diameter of the common duct is 2 mm in the proximal segment and 3 mm in the mid segment. The distal segment could not be visualized. Right Kidney: There is no hydronephrosis in the visualized portions of the right kidney. Pancreas: The pancreas is obscured. Procedure Note Joyce Carbone MD PhD - 06/06/2022 EXAMINATION: US RUQ HISTORY: Request to evaluate for ascending cholangitis, cholelithiasis, gallbladder wall thickening, RUQ US at OSH indeterminate COMPARISON: Outside hospital CT abdomen pelvis dated 06/02/2022, outside hospital abdominal ultrasound dated 06/03/2022 FINDINGS: Of note, the examination is slightly limited by the patient's body habitus. Liver: The echotexture is normal. The echogenicity is normal. There is no surface nodularity. No focal solid lesions are visualized. Gallbladder: The gallbladder is enlarged. There are stones and sludge within the gallbladder. There is gallbladder wall thickening. There is pericholecystic fluid. The sonographic Jade's sign is equivocal. Bile Duct: Within the limitations of this examination, there is no intrahepatic bile duct dilatation. The diameter of the common duct is 2 mm in the proximal segment and 3 mm in the mid segment. The distal segment could not be visualized. Right Kidney: There is no hydronephrosis in the visualized portions of the right kidney. Pancreas: The pancreas is obscured. IMPRESSION: Sonographic findings concerning for cholecystitis. Limited evaluation of sonographic Jade's sign. Consider hepatobiliary nuclear scintigraphy / HIDA scan for more complete evaluation. Dictated by: Ponce Garcia M.D. The radiology attending physician has personally reviewed this study, and had reviewed and/or edited this written report and agrees with it. Electronically signed by: Joyce Carbone M.D., Ph.D us Conrad Weston Chi, MD IMG US PROCEDURES Final R esult * (ABNORMAL) POCT glucose (06/05/2022 5:07 PM CDT) Glucose, POC 275(H) 70 - 199 mg/dL [facility] Blood 06/05/2022 5:07 PM CDT 06/05/2022 5:07 PM CDT Conrad Weston Chi, MD LAB POCT ORDERABLES - DEV ICE Final Result [facility] Department [place] [address] * Blood culture Blood Antecubital, left (06/05/2022 5:06 PM CDT) Report Final Report: No growth [facility] Blood (Antecubital, left) 06/05/2022 5:06 PM CDT 06/05/2022 5:21 PM CDT Narrative [facility] - 06/10/2022 7:01 AM CDT From a different site than #1. 1. ?Blood cultures are incubated for 4 days on a continuously monitored blood culture system. The first report of a negative culture is issued within 24 hours of receipt of the specimen in the laboratory. 2. ?Positive culture results are reported as soon as they are detected. 3. ?The most important factor for detection of microbes in the setting of bloodstream infection is the volume of blood submitted for culture. Failure to collect an optimal blood volume can result in false negative blood cultures. For pediatric patients, the recommended blood volume to collect is 1 mL of blood per year of patient age (up to 20 mL) per blood culture set. For adult patients, 20 mL of blood, divided equally between aerobic and anaerobic blood culture bottles, is recommended for each blood culture set. 4. ?For blood cultures with Gram-positive cocci, a rapid molecular test for organism identification may be performed using the [employer] Gram-Positive Blood Culture Assay. This assay detects microbial DNA in positive blood culture broth via hybridization of target DNA to capture oligonucleotides on a microarray. This assay has been cleared by the [place] Food and Drug Administration and its performance characteristics have been verified by the [facility]biology Laboratory. 5. ?For questions about this culture, contact the Microbiology Laboratory at [phone]. Interpretive data was last revised on 2020. Conrad Weston Chi, MD LAB MICROBIOLOGY - GENERA L ORDERABLES Final Result Performing Organization Address [facility]/ZIP Co de Phone Number ALESSANDRA AVILA [facility] Department [place] [address] * Blood culture Blood Antecubital, right (06/05/2022 5:06 PM CDT) Report Final Report: No growth [facility]ABRAHAN CARRION Blood (Antecubital, right) 06/05/2022 5:06 PM CDT 06/05/2022 5:21 PM CDT Narrative ALESSANDRA AVILA - 06/10/2022 7:01 AM CDT 1. ?Blood cultures are incubated for 4 days on a continuously monitored blood culture system. The first report of a negative culture is issued within 24 hours of receipt of the specimen in the laboratory. 2. ?Positive culture results are reported as soon as they are detected. 3. ?The most important factor for detection of microbes in the setting of bloodstream infection is the volume of blood submitted for culture. Failure to collect an optimal blood volume can result in false negative blood cultures. For pediatric patients, the recommended blood volume to collect is 1 mL of blood per year of patient age (up to 20 mL) per blood culture set. For adult patients, 20 mL of blood, divided equally between aerobic and anaerobic blood culture bottles, is recommended for each blood culture set. 4. ?For blood cultures with Gram-positive cocci, a rapid molecular test for organism identification may be performed using the [employer] Gram-Positive Blood Culture Assay. This assay detects microbial DNA in positive blood culture broth via hybridization of target DNA to capture oligonucleotides on a microarray. This assay has been cleared by the [place] Food and Drug Administration and its performance characteristics have been verified by the [facility]biology [facility]. 5. ?For questions about this culture, contact the Microbiology Laboratory at [phone]. Interpretive data was last revised on 2020. Conrad Weston Chi, MD LAB MICROBIOLOGY - GENERA L ORDERABLES Final Result Performing Organization Address [facility]/State/ZIP Co de Phone Number [facility] Department [place] [address] * (ABNORMAL) Troponin I high-sensitivity (06/05/2022 4:07 PM CDT) Pathologist [facility] Trop I hs 4,266(C) <=35 ng/L [facility] Comment: Previous critical value noted within 48 hours ago. Interpretive Data For further hscTnI resources including the diagnostic algorithm and an aid in interpretation, copy and paste this link: [email or web address].org/[email or web address] Current Interpretive Data last revised 2020. Blood 06/05/2022 4:07 PM CDT 06/05/2022 4:27 PM CDT Conrad Weston Chi, MD LAB BLOOD ORDERABLES Ann Marie l Result Performing Organization Address [facility]/State/[facility] Co de Phone Number [facility] Department [place] [address] * (ABNORMAL) eGFR (06/05/2022 3:54 PM CDT) [facility] eGFR 6(L) 90 - 130 mL/min/1. 73 m2 [facility] Comment: Interpretive Data Reference Interval [...] interpretive data was last reviewed 2021. Blood 06/05/2022 3:54 PM CDT 06/05/2022 4:27 PM CDT us Champ Osborne MD PhD LAB BLOOD ORDERABLES Final Result [facility] Department [place] [address] * (ABNORMAL) Differential, auto (06/05/2022 3:54 PM CDT) Neutrophil abs 9.2(H) 1.7 - 6.5 K/cumm [facility] Imm gran abs 0.1 0.0 - 0.1 K/cumm [facility] Lymphocyte abs 0.6(L) 0.8 - 3.3 K/cumm [facility] Monocyte abs 0.8 0.2 - 0.8 K/cumm [facility] Eosinophil abs 0.0 0.0 - 0.5 K/cumm [facility] Basophil abs 0.0 0.0 - 0.1 K/cumm [facility] Neutrophil pct 86.0 % [facility] Comment: Interpretive Data Percent cell count reference ranges are not reported, since discordance with absolute values may lead to misinterpretation of CBC data. Current Interpretive Data was last revised on 2017. Imm gran pct 0.8 % [facility] Comment: Interpretive Data Percent cell count reference ranges are not reported, since discordance with absolute values may lead to misinterpretation of CBC data. Current Interpretive Data was last revised on 2017. Lymphocyte pct 5.6 % [facility] Comment: Interpretive Data Percent cell count reference ranges are not reported, since discordance with absolute values may lead to misinterpretation of CBC data. Current Interpretive Data was last revised on 2017. Monocyte pct 7.4 % [facility] Comment: Interpretive Data Percent cell count reference ranges are not reported, since discordance with absolute values may lead to misinterpretation of CBC data. Current Interpretive Data was last revised on 2017. Eosinophil pct 0.1 % [facility] Comment: Interpretive Data Percent cell count reference ranges are not reported, since discordance with absolute values may lead to misinterpretation of CBC data. Current Interpretive Data was last revised on 2017. Basophil pct 0.1 % [facility] Comment: Interpretive Data Percent cell count reference ranges are not reported, since discordance with absolute values may lead to misinterpretation of CBC data. Current Interpretive Data was last revised on 2017. Blood 06/05/2022 3:54 PM CDT 06/05/2022 4:27 PM CDT Champ Osborne MD PhD LAB BLOOD ORDERABLES Final Result [facility] [place] [address] * Type and screen (06/05/2022 3:54 PM CDT) ABO Rh A Positive [facility] Maribel, indirect Negative [facility] Blood 06/05/2022 3:54 PM CDT 06/05/2022 4:18 PM CDT Narrative [facility] - 06/05/2022 5:07 PM CDT Has the patient had Daratumumab or Isatuximab in the past 6 months?->Unknown Champ Osborne MD PhD LAB BLOOD BANK TEST ORDERA BLES Final Result Performing Organization Address City/[facility]/ZIP Co de Phone Number [facility] [place] [address] * (ABNORMAL) aPTT (06/05/2022 3:54 PM CDT) Pathologist [facility] aPTT 45(H) 27 - 37 sec [facility] Comment: Interpretive Data Therapeutic heparin range: 60.0 - 94.0 seconds. Based on correlation with therapeutic heparin activity range of 0.3-0.7 Units/mL. Current interpretive data was last revised on 2020. Blood (Blood, Venous) 06/05/2022 3:54 PM CDT 06/05/2022 4:16 PM CDT Champ Osborne MD PhD LAB BLOOD ORDERABLES Final Result Performing Organization Address [facility] Co de Phone Number [facility] [place] [address] * Protime-INR (06/05/2022 3:54 PM CDT) [facility] PT 10.8 9.2 - 13.5 sec [facility] INR 1.0 0.9 - 1.2 [facility] Comment: Interpretive data Oral anticoagulant therapeutic ranges: Venous thromboembolism prophylaxis or treatment: 2.0-3.0 CARDIOLOGY Standard range: 2.0-3.0 High-intensity range: 2.5-3.5 Refer to indication-specific guidelines for appropriate target ranges for prosthetic heart valve replacement. Current interpretive data was last revised on 2019. Blood (Blood, Venous) 06/05/2022 3:54 PM CDT 06/05/2022 4:16 PM CDT Champ Osborne MD PhD LAB BLOOD ORDERABLES Final Result Performing Organization Address City/[facility]/ZIP Co de Phone Number [facility] [place] [address] * (ABNORMAL) CBC with auto differential (06/05/2022 3:54 PM CDT) [facility] WBC 10.7(H) 3.8 - 9.9 K/cumm [facility] Hgb 10.3(L) 13.0 - 17.5 g/dL [facility] Hct 29.1(L) 38.9 - 50.3 % [facility] Plt 238 150 - 400 K/cumm [facility] MPV 11.1 9.1 - 12.3 fL [facility] RBC 3.32(L) 4.30 - 5.80 M/cumm [facility] MCV 87.7 81.3 - 96.4 fL [facility] MCH 31.0 27.1 - 33.3 pg [facility] MCHC 35.4 32.3 - 35.7 g/dL [facility] RDW CV 12.5 11.1 - 14.9 % [facility] RDW SD 40.3 35.7 - 48.1 fL [facility] NRBC abs 0.00 0.00 - 0.01 K/cumm [facility] Blood 06/05/2022 3:54 PM CDT 06/05/2022 4:27 PM CDT Champ Osborne MD PhD LAB BLOOD ORDERABLES Final Result [facility] [place] [address] * Lactate (06/05/2022 3:54 PM CDT) Lactate 1.6 0.7 - 2.0 mmol/L [facility] Blood 06/05/2022 3:54 PM CDT 06/05/2022 4:27 PM CDT Champ Osborne MD PhD LAB BLOOD ORDERABLES Final Result [facility] [place] [address] * (ABNORMAL) Basic metabolic panel (06/05/2022 3:54 PM CDT) Sodium 132(L) 135 - 145 mmol/L [facility] Potassium, pl 4.1 3.3 - 4.9 mmol/L [facility] Chloride 87(L) 97 - 110 mmol/L [facility] CO2 26 22 - 32 mmol/L [facility] Anion gap 19(H) 2 - 15 mmol/L [facility] BUN 81(H) 8 - 25 mg/dL [facility] Creatinine 9.08(H) 0.80 - 1.30 mg/dL [facility] Glucose 276(H) 70 - 199 mg/dL [facility] Comment: Interpretive Data Fasting glucose >/= [...] classification and Diagnosis of Diabetes Diabetes Care 2017;40 (Suppl. 1):S11. Current interpretive data was last revised 2017. Calcium 8.1(L) 8.5 - 10.3 mg/dL [facility] Blood 06/05/2022 3:54 PM CDT 06/05/2022 4:27 PM CDT us Champ Osborne MD PhD LAB BLOOD ORDERABLES Final Result Performing Organization Address City/[facility]/ZIP Co de Phone Number [facility] Department [place] [address] * (ABNORMAL) POCT glucose (06/05/2022 3:46 PM CDT) Glucose, POC 279(H) 70 - 199 mg/dL [facility] Blood 06/05/2022 3:46 PM CDT 06/05/2022 3:46 PM CDT Conrad Weston Chi, MD LAB POCT ORDERABLES - DEV ICE Final Result [facility] Department [place] [address] * (ABNORMAL) eGFR (06/05/2022 3:22 PM CDT) [facility] eGFR 6(L) 90 - 130 mL/min/1. 73 m2 AL[facility]ANDR[facility] CARRION Comment: Interpretive Data Reference Interval Normal ?>/= [...] interpretive data was last reviewed 2021. Blood 06/05/2022 3:22 PM CDT 06/05/2022 3:59 PM CDT us Champ Osborne MD PhD LAB BLOOD ORDERABLES Final Result ALESSANDRA CARRION [facility] Department [place] [address] * (ABNORMAL) POCT [id number], WB - ISTAT (06/05/2022 3:22 PM CDT) [facility] Na POC 126(L) 135 - 145 mmol/L [facility] K POC 3.6 3.3 - 4.9 mmol/L [facility] Comment: Interpretive Data This method is not able to assess for hemolysis, which may falsely increase potassium concentrations. If further testing is needed to evaluate this result, consider in-laboratory plasma potassium. Current Interpretive Data was last revised on 2022. Glucose POC i-STAT 287(H) 70 - 199 mg/dL [facility] Hct, POC 30.0(L) 38.9 - 50.3 % [facility] Blood 06/05/2022 3:22 PM CDT 06/05/2022 3:22 PM CDT Champ Osborne MD PhD LAB POCT ORDERABLES - APRIL CE Final Result Performing Organization Address [facility]/ZIP Co de Phone Number [facility] Department [place] [address] * Magnesium (06/05/2022 3:22 PM CDT) [facility] Magnesium 2.1 1.4 - 2.5 mg/dL [facility] Blood 06/05/2022 3:22 PM CDT 06/05/2022 3:59 PM CDT Champ Osborne MD PhD LAB BLOOD ORDERABLES Final Result Performing Organization Address City/[facility]/ZIP Co de Phone Number [facility] Department [place] [address] * (ABNORMAL) Basic metabolic panel (06/05/2022 3:22 PM CDT) [facility] Sodium 127(L) 135 - 145 mmol/L [facility] Potassium, pl 3.9 3.3 - 4.9 mmol/L [facility] Comment:Hemolyzed; Potassium value may be falsely elevated by as much as 0.3-0.5 mmol/L. Suggest redraw and reanalysis. Chloride 88(L) 97 - 110 mmol/L [facility] CO2 19(L) 22 - 32 mmol/L [facility] Anion gap 20(H) 2 - 15 mmol/L [facility] BUN 79(H) 8 - 25 mg/dL [facility] Creatinine 9.13(H) 0.80 - 1.30 mg/dL [facility] Glucose 294(H) 70 - 199 mg/dL [facility] Comment: Interpretive Data Fasting glucose >/= [...] classification and Diagnosis of Diabetes Diabetes Care 2017;40 (Suppl. 1):S11. Current interpretive data was last revised 2017. Calcium 8.2(L) 8.5 - 10.3 mg/dL [facility] Blood 06/05/2022 3:22 PM CDT 06/05/2022 3:59 PM CDT Champ Osborne MD PhD LAB BLOOD ORDERABLES Final Result [facility] Department [place] [address] * (ABNORMAL) Troponin I high-sensitivity (06/05/2022 3:21 PM CDT) Trop I hs 4,261(C) <=35 ng/L [facility] Comment: Previous critical value noted within 48 hours ago. Interpretive Data For further [facility] resources including the diagnostic algorithm and an aid in interpretation, copy and paste this link: [email or web address]/[email or web address] Current Interpretive Data last revised 2020. Blood 06/05/2022 3:21 PM CDT 06/05/2022 3:59 PM CDT us Champ Osborne MD PhD LAB BLOOD ORDERABLES Final Result Performing Organization Address City/[facility]/ZIP Co de Phone Number [facility] [place] [address] * (ABNORMAL) Arterial Blood gas w/Lactate POCT (06/05/2022 3:17 PM CDT) Lactate POC i-STAT 2.0 0.7 - 2.2 mmol/L [facility] pH POC 7.38 7.35 - 7.45 [facility] pCO2, Art POC 37 35 - 45 mmHg [facility] PO2 POC 53(L) 80 - 105 mmHg [facility] CO2, total POC 23 20 - 30 mmol/L [facility] HCO3, POC 22 21 - 30 mmol/L [facility] BE POC -3(L) -2 - 3 mmol/L [facility] O2 sat POC 86(L) 95 - 98 % [facility] Blood 06/05/2022 3:17 PM CDT 06/05/2022 3:17 PM CDT us Champ Osborne MD PhD LAB BLOOD ORDERABLES Final Result Performing Organization Address [facility] Co de Phone Number [facility] Department [place] [address] * XR Chest 1 View (06/05/2022 3:15 PM CDT) Anatomical Region Laterality Modality Body, Chest N/A Computed Radiogr aphy 06/05/2022 3:44 PM CDT Impressions 06/05/2022 3:44 PM CDT Comparison is made to prior study of 06/04/2022 10:32 PM. In the interval, there has been development of moderate to severe pulmonary edema. No pneumothorax is present. No definite pleural effusion on the left. There is a tiny right pleural effusion. The heart size and mediastinal contour are unchanged. Electronically signed by: Saurav Emerson M.D. Narrative 06/05/2022 3:44 PM CDT EXAMINATION: 1 view chest radiograph Procedure Note Saurav Emerson MD - 06/05/2022 EXAMINATION: 1 view chest radiograph IMPRESSION: Comparison is made to prior study of 06/04/2022 10:32 PM. In the interval, there has been development of moderate to severe pulmonary edema. No pneumothorax is present. No definite pleural effusion on the left. There is a tiny right pleural effusion. The heart size and mediastinal contour are unchanged. Electronically signed by: Saurav Emerson M.D. Champ Osborne MD PhD IMG XR PROCEDURES Final Re sult * ECG 12 lead (06/05/2022 2:52 PM CDT) Pathologist [facility] Ventricular Rate EKG/Min 73 BPM [facility] Atrial Rate 73 BPM [facility] [place]-Interval (MSEC) 184 ms [facility] QRS-Interval (MSEC) 106 ms [facility] QT-Interval (MSEC) 442 ms [facility] QTc 486 ms [facility] P [place] 49 degrees [facility] R [place] -33 degrees [facility] T [place] 87 degrees [facility] Diagnosis Normal sinus rhythm Left axis deviation QS in V1 and V2, a nonspecific finding with multiple causes, including lead misplacement or septal infarction in 20% Abnormal ECG Confirmed by JESS BUSTOS M.D ([id number]) on 06/07/2022 8:30:06 AM [facility] 06/05/2022 2:52 PM CDT 06/07/2022 8:30 AM CDT Champ Osborne MD PhD ECG ORDERABLES Final Resu lt [facility] * (ABNORMAL) POCT glucose (06/05/2022 2:22 PM CDT) Pathologist [facility] Glucose, POC 389(H) 70 - 199 mg/dL [facility] Blood 06/05/2022 2:22 PM CDT 06/05/2022 2:22 PM CDT Champ Osborne MD PhD LAB POCT ORDERABLES - APRIL CE Final Result [facility] Department [place] [address] * Respiratory pathogen panel Nasopharyngeal (06/05/2022 1:05 PM CDT) Pathologist [facility] Influenza A RNA Not Detected Not Detected [facility] Influenza B RNA Not Detected Not Detected [facility] RSV RNA Not Detected Not Detected [facility] COVID-19 RNA Not Detected Not Detected [facility] Coronavirus 229E RNA Not Detected Not Detected [facility] Coronavirus HKU1 RNA Not Detected Not Detected [facility] Coronavirus NL63 RNA Not Detected Not Detected [facility] Coronavirus OC43 RNA Not Detected Not Detected [facility] Adenovirus DNA Not Detected Not Detected [facility] Metapneumovirus RNA Not Detected Not Detected [facility] Rhinovirus/Enterov irus RNA Not Detected Not Detected [facility] Parainfluenza 1 RNA Not Detected Not Detected [facility] Parainfluenza 2 RNA Not Detected Not Detected [facility] Parainfluenza 3 RNA Not Detected Not Detected [facility] Parainfluenza 4 RNA Not Detected Not Detected [facility] B. pertussis DNA Not Detected Not Detected [facility] B. parapertussis DNA Not Detected Not Detected [facility] C. pneumoniae DNA Not Detected Not Detected [facility] M. pneumoniae DNA Not Detected Not Detected [facility] Nasopharyngeal 06/05/2022 1: 05 PM CDT 06/05/2022 1:32 PM CDT Narrative [facility] - 06/05/2022 2:40 PM CDT Is the Patient experiencing symptoms consistent with COVID?->No Reason for testing?->Symptomatic Surveillance testing for transplant patient?->No ??Interpretive Data The [employer] FilmArray Respiratory Panel (RP2.1) assay is a multiplexed real-time PCR based nucleic acid test capable of simultaneous qualitative detection and identification of multiple respiratory viral and bacterial nucleic acids, including SARS Coronavirus 2 (the causative agent of COVID-19). The following bacteria, viruses and virus subtypes can be identified using the FilmArray RP2.1 assay: Bordetella pertussis, Bordetella parapertussis, Chlamydia pneumoniae, Mycoplasma pneumoniae, Adenovirus, SARS Coronavirus 2, seasonal coronaviruses (Coronavirus HKU1, Coronavirus NL63, Coronavirus 229E, and Coronavirus OC43), Influenza A, Influenza A subtype H1, Influenza A subtype H3, Influenza A subtype 2009 H1, Influenza B, Metapneumovirus, Parainfluenza 1, Parainfluenza 2, Parainfluenza 3, Parainfluenza 4, RSV, Rhinovirus/Enterovirus. Due to the genetic similarity between human Rhinovirus and Enterovirus, the FilmArray RP2.1 assay cannot reliably differentiate them. Coronavirus OC43 may cross-react with some isolates of Coronavirus HKU1. ??A dual positive result may be due to cross-reactivity or may indicate a co-infection. The detection and identification of specific viral and bacterial nucleic acids from individuals exhibiting signs and symptoms of a respiratory infection aids in the diagnosis of respiratory infection if used in conjunction with other clinical and epidemiological information. ??The results of this test should not be used as the sole basis for diagnosis, treatment, or other management decisions. ??Negative results in the setting of a respiratory illness may be due to infection with pathogens that are not detected by this test. ??Positive results do not rule out infection/co-infection with other organisms. ??The agent(s) detected by the FilmArray RP2.1 may not be the definite cause of disease. ??Additional testing (lab, imaging, etc.) may be necessary when evaluating a patient with possible respiratory tract infection. The FilmArray RP2.1 assay has FDA clearance for testing of [employer] swabs. ??The performance of additional specimen types has been assessed by the performing laboratory. ??The performance characteristics of this assay have been determined by [facility] Molecular Infectious Disease Laboratory. Current interpretive data was last revised on 22. Champ Osborne MD PhD LAB MICROBIOLOGY - GENERAL ORDERABLES Final Result [facility] Department [place] [address] * Lactate (06/05/2022 12:10 PM CDT) Lactate 2.0 0.7 - 2.0 mmol/L [facility] Blood 06/05/2022 12:1 0 PM CDT 06/05/2022 12:39 PM CDT us Champ Osborne MD PhD LAB BLOOD ORDERABLES Final Result [facility] [place] [address] * Beta-hydroxybutyrate (06/05/2022 12:10 PM CDT) Beta-Hydroxybut yrate <0.1 0.0 - 0.5 mmol/L [facility] Blood 06/05/2022 12:1 0 PM CDT 06/05/2022 12:34 PM CDT us Champ Osborne MD PhD LAB BLOOD ORDERABLES Final Result Performing Organization Address City/[facility]/ZIP Co de Phone Number [facility] [place] [address] * (ABNORMAL) POCT glucose (06/05/2022 11:23 AM CDT) Glucose, POC 402(H) 70 - 199 mg/dL [facility] Glucose comment 1 Glu2: RN/MD Notified [facility] Blood 06/05/2022 11:2 3 AM CDT 06/05/2022 11:23 AM CDT us Champ Osborne MD PhD LAB POCT ORDERABLES - APRIL CE Final Result [facility] [place] [address] * aPTT (06/05/2022 11:04 AM CDT) aPTT 29 27 - 37 sec [facility] Comment: Interpretive Data Therapeutic heparin range: 60.0 - 94.0 seconds. Based on correlation with therapeutic heparin activity range of 0.3-0.7 Units/mL. Current interpretive data was last revised on 2020. Blood 06/05/2022 11:0 4 AM CDT 06/05/2022 12:39 PM CDT Champ Osborne MD PhD LAB BLOOD ORDERABLES Final Result Performing Organization Address [facility] Co de Phone Number [facility] [place] [address] * (ABNORMAL) POCT glucose (06/05/2022 10:07 AM CDT) Glucose, POC 403(H) 70 - 199 mg/dL [facility] Blood 06/05/2022 10:0 7 AM CDT 06/05/2022 10:07 AM CDT Champ Osborne MD PhD LAB POCT ORDERABLES - APRIL CE Final Result Performing Organization Address [facility] Co de Phone Number [facility] [place] [address] * (ABNORMAL) POCT glucose (06/05/2022 8:47 AM CDT) Glucose, POC 398(H) 70 - 199 mg/dL [facility] Blood 06/05/2022 8:47 AM CDT 06/05/2022 8:47 AM CDT Champ Osborne MD PhD LAB POCT ORDERABLES - APRIL CE Final Result Performing Organization Address [facility] Co de Phone Number [facility] [place] [address] * (ABNORMAL) POCT glucose (06/05/2022 8:45 AM CDT) Glucose, POC 458(C) 70 - 199 mg/dL [facility] Glucose comment 1 Glu2: RN/MD Notified [facility] Blood 06/05/2022 8:45 AM CDT 06/05/2022 8:45 AM CDT us Champ Osborne MD PhD LAB POCT ORDERABLES - ARPIL CE Final Result Performing Organization Address [facility] Co de Phone Number [facility] [place] [address] * (ABNORMAL) POCT glucose (06/05/2022 6:33 AM CDT) Glucose, POC 373(H) 70 - 199 mg/dL [facility] Blood 06/05/2022 6:33 AM CDT 06/05/2022 6:33 AM CDT us Champ Osborne MD PhD LAB POCT ORDERABLES - APRIL CE Final Result Performing Organization Address [facility] de Phone Number [facility] [place] [address] * IR Outside Reference (06/05/2022 5:59 AM CDT) Impressions [facility] - 06/05/2022 5:59 AM CDT These images are for Reference purposes only and have not been reviewed by [facility]. ??There will be no report generated by a [facility] Radiologist. Narrative RAD_PACS[facility] - 06/05/2022 5:59 AM CDT EXAMINATION: ??Images For Reference Purposes Only us Carrington Weber MD IMG IR PROCEDURES Final Result Performing Organization Address [facility] Co de Phone Number [facility] * XR Outside Reference (06/05/2022 5:57 AM CDT) Impressions [facility] - 06/05/2022 5:57 AM CDT These images are for Reference purposes only and have not been reviewed by [facility]. ??There will be no report generated by a [facility] Radiologist. Narrative [facility] - 06/05/2022 5:57 AM CDT EXAMINATION: ??Images For Reference Purposes Only Carrington Weber MD IMG XR PROCEDURES Final Result Performing Organization Address [facility] Co de Phone Number [email or web address] * US Outside Reference (06/05/2022 5:56 AM CDT) Impressions [facility] - 06/05/2022 5:56 AM CDT These images are for Reference purposes only and have not been reviewed by [facility]. ??There will be no report generated by a [facility] Radiologist. Narrative [facility] - 06/05/2022 5:56 AM CDT EXAMINATION: ??Images For Reference Purposes Only Carrington Weber MD IMG US PROCEDURES Final Result Performing Organization Address [facility] de Phone Number [email or web address] * CT Body Outside Reference (06/05/2022 5:54 AM CDT) Impressions [facility] - 06/05/2022 5:54 AM CDT These images are for Reference purposes only and have not been reviewed by [facility]. ??There will be no report generated by a [facility] Radiologist. Narrative [facility] - 06/05/2022 5:54 AM CDT EXAMINATION: ??Images For Reference Purposes Only Carrington Weber MD IMG CT PROCEDURES Final Result Performing Organization Address [facility] Co de Phone Number [email or web address] * (ABNORMAL) Troponin I high-sensitivity 2-hour (06/05/2022 4:27 AM CDT) Trop I hs 4,555(C) <=35 ng/L [facility] Comment: Previous critical value noted within 48 hours ago. Interpretive Data For further hscTnI resources including the diagnostic algorithm and an aid in interpretation, copy and paste this link: https://bjhlab.testcatalog.org/show/hsTrop-1 Current Interpretive Data last revised 2020. Trop I hs pct delta -1 % [facility] Trop I hs interp Insignificant [facility] Blood 06/05/2022 4:27 AM CDT 06/05/2022 5:21 AM CDT Champ Osborne MD PhD LAB BLOOD ORDERABLES Final Result Performing Organization Address [facility] Co de Phone Number [facility] [place] [address] * (ABNORMAL) aPTT (06/05/2022 4:27 AM CDT) aPTT 23(L) 27 - 37 sec [facility] Comment: Interpretive Data Therapeutic heparin range: 60.0 - 94.0 seconds. Based on correlation with therapeutic heparin activity range of 0.3-0.7 Units/mL. Current interpretive data was last revised on 2020. Blood 06/05/2022 4:27 AM CDT 06/05/2022 5:50 AM CDT Narrative [facility] - 06/05/2022 6:00 AM CDT Baseline prior to heparin initiation Champ Osborne MD PhD LAB BLOOD ORDERABLES Final Result Performing Organization Address City/[facility] Co de Phone Number [facility] [place] [address] * Protime-INR (06/05/2022 4:27 AM CDT) PT 10.1 9.2 - 13.5 sec [facility] INR 0.9 0.9 - 1.2 [facility] Comment: Interpretive data Oral anticoagulant therapeutic ranges: Venous thromboembolism prophylaxis or treatment: 2.0-3.0 CARDIOLOGY Standard range: 2.0-3.0 High-intensity range: 2.5-3.5 Refer to indication-specific guidelines for appropriate target ranges for prosthetic heart valve replacement. Current interpretive data was last revised on 2019. Blood 06/05/2022 4:27 AM CDT 06/05/2022 5:50 AM CDT Narrative [facility] - 06/05/2022 6:00 AM CDT Baseline prior to heparin initiation Champ Osborne MD PhD LAB BLOOD ORDERABLES Final Result Performing Organization Address [facility] de Phone Number [facility] [place] [place] [address] * (ABNORMAL) Troponin I high-sensitivity series (baseline, 2hr, 4hr, 6hr) (06/05/2022 2:37 AM CDT) Trop I hs 4,614(C) <=35 ng/L [facility] Comment: Previous critical value noted within 48 hours ago. Interpretive Data For further hscTnI resources including the diagnostic algorithm and an aid in interpretation, copy and paste this link: https://bjhlab.testcatalog.org/show/hsTrop-1 Current Interpretive Data last revised 2020. Blood 06/05/2022 2:37 AM CDT 06/05/2022 3:30 AM CDT Champ Osborne MD PhD LAB BLOOD ORDERABLES Final Result Performing Organization Address [facility] Co de Phone Number [facility] [place] [place] [address] * POCT glucose (06/04/2022 11:04 PM CDT) Glucose, POC 191 70 - 199 mg/dL [facility] Blood 06/04/2022 11:0 4 PM CDT 06/04/2022 11:04 PM CDT us Champ Osborne MD PhD LAB POCT ORDERABLES - APRIL CE Final Result Performing Organization Address [facility] Co de Phone Number [facility] Department [place] [address] * ECG 12 lead (06/04/2022 10:59 PM CDT) [facility] Ventricular Rate EKG/Min 47 BPM [facility] Atrial Rate 47 BPM [facility] [place]-Interval (MSEC) 228 ms [facility] QRS-Interval (MSEC) 116 ms [facility] QT-Interval (MSEC) 532 ms [facility] QTc 470 ms [facility] P [place] 39 degrees [facility] R [place] -33 degrees [facility] T [place] 105 degrees [facility] Diagnosis Sinus bradycardia with 1st degree A-V block Left axis deviation Incomplete left bundle branch block Nonspecific ST and T wave abnormality Long QTc When compared with ECG of 23-MAR-2017 00:14, [place] interval has increased QTc has increased Rate has decreased by 15 bpm Incomplete left bundle branch block is now Present Criteria for Septal infarct are not Present Confirmed by KENN BILLINGSLEY M.D ([id number]) on 06/06/2022 9:57:10 PM [facility] 06/04/2022 10:5 9 PM CDT 06/06/2022 9:57 PM CDT us Catherine Adams MD ECG ORDERABLES Final Resul t Performing Organization Address City/[facility] Co de Phone Number [facility] * (ABNORMAL) Hemoglobin A1c (06/04/2022 10:52 PM CDT) [facility] Hgb A1C 7.8(H) 4.0 - 5.6 % [facility] Estimated Average Glucose 177 mg/dL [facility] Comment: The ADA recommends reporting an estimated Average Glucose (eAG) with all Hemoglobin A1c results using the equation derived from a study of 507 normal and diabetic adults. ??Minority populations were underrepresented and children were not included. ?? (Diabetes Care 2020; 43(S1): S66-S76). ??The eAG is not equivalent to a fasting glucose. Blood 06/04/2022 10:5 2 PM CDT 06/05/2022 Champ Osborne MD PhD LAB BLOOD ORDERABLES Final Result Performing Organization Address [facility] Co de Phone Number [facility] [place] [address] * Beta-hydroxybutyrate (06/04/2022 10:52 PM CDT) Beta-Hydroxybut yrate <0.1 0.0 - 0.5 mmol/L [facility] Blood 06/04/2022 10:5 2 PM CDT 06/05/2022 Champ Osborne MD PhD LAB BLOOD ORDERABLES Final Result Performing Organization Address [facility] de Phone Number [facility] [place] [address] * (ABNORMAL) Lipid panel (06/04/2022 10:52 PM CDT) Cholesterol 149 30 - 199 mg/dL [facility] Comment: Interpretive Data Ages < or [...] Data was last revised on 2018. Triglycerides 165(H) <=149 mg/dL [facility] Comment: Interpretive Data Ages < or [...] revised on 2018. HDL 34(L) >=40 mg/dL [facility] Comment: Interpretive Data Ages < or [...] was last revised on 2018. LDL, calculated 82 <=129 mg/dL [facility] Comment: Interpretive Data Ages < or [...] was last revised on 2018. Non-HDL Cholesterol 115 mg/dL [facility] Comment: Interpretive Data Ages [...] last revised on 2018. Chol/HDL ratio 4 [facility] Blood 06/04/2022 10:5 2 PM CDT 06/04/2022 11:56 PM CDT us Champ Osborne MD PhD LAB BLOOD ORDERABLES Final Result [facility] Department [place] [address] * Critical result callback Cardio chemistry (06/04/2022 10:52 PM CDT) Date Notified [id number] [facility]ESSAN[facility]A CARRION Time Notified 99 [facility]ESSANDRA CARRION Test name Trop [facility] Called/Read Back Denisse CARRION Credentials RN [facility] Called By jose manuel APARICIO [facility] Blood 06/04/2022 10:5 2 PM CDT 06/04/2022 11:56 PM CDT Catherine Adams MD LAB BLOOD ORDERABLES Final Result [facility] Department [place] [address] * (ABNORMAL) eGFR (06/04/2022 10:52 PM CDT) eGFR 6(L) 90 - 130 mL/min/1. 73 m2 [facility] Comment: Interpretive Data Reference Interval Normal [...] interpretive data was last reviewed 2021. Blood 06/04/2022 10:5 2 PM CDT 06/04/2022 11:56 PM CDT us Catherine Adams MD LAB BLOOD ORDERABLES Final Result [facility] Department [place] [address] * Differential, auto (06/04/2022 10:52 PM CDT) Neutrophil abs 6.1 1.7 - 6.5 K/cumm [facility] Imm gran abs 0.1 0.0 - 0.1 K/cumm [facility] Lymphocyte abs 0.8 0.8 - 3.3 K/cumm [facility] Monocyte abs 0.8 0.2 - 0.8 K/cumm [facility] Eosinophil abs 0.0 0.0 - 0.5 K/cumm [facility] Basophil abs 0.0 0.0 - 0.1 K/cumm [facility] Neutrophil pct 79.1 % [facility] Comment: Interpretive Data Percent cell count reference ranges are not reported, since discordance with absolute values may lead to misinterpretation of CBC data. Current Interpretive Data was last revised on 2017. Imm gran pct 0.6 % [facility] Comment: Interpretive Data Percent cell count reference ranges are not reported, since discordance with absolute values may lead to misinterpretation of CBC data. Current Interpretive Data was last revised on 2017. Lymphocyte pct 10.1 % [facility] Comment: Interpretive Data Percent cell count reference ranges are not reported, since discordance with absolute values may lead to misinterpretation of CBC data. Current Interpretive Data was last revised on 2017. Monocyte pct 10.2 % [facility] Comment: Interpretive Data Percent cell count reference ranges are not reported, since discordance with absolute values may lead to misinterpretation of CBC data. Current Interpretive Data was last revised on 2017. Eosinophil pct 0.0 % [facility] Comment: Interpretive Data Percent cell count reference ranges are not reported, since discordance with absolute values may lead to misinterpretation of CBC data. Current Interpretive Data was last revised on 2017. Basophil pct 0.0 % [facility] Comment: Interpretive Data Percent cell count reference ranges are not reported, since discordance with absolute values may lead to misinterpretation of CBC data. Current Interpretive Data was last revised on 2017. Blood 06/04/2022 10:5 2 PM CDT 06/04/2022 11:56 PM CDT Result [facility] Catherine Adams MD LAB BLOOD ORDERABLES Final Result Performing Organization Address [facility] de Phone Number [facility] [place] [address] * (ABNORMAL) Troponin I high-sensitivity (06/04/2022 10:52 PM CDT) Trop I hs 4,797(C) <=35 ng/L [facility] Comment: Interpretive Data For further hscTnI resources including the diagnostic algorithm and an aid in interpretation, copy and paste this link: https://bjhlab.testcatalog.org/show/hsTrop-1 Current Interpretive Data last revised 2020. Blood 06/04/2022 10:5 2 PM CDT 06/04/2022 11:56 PM CDT Result [facility] Catherine Adams MD LAB BLOOD ORDERABLES Final Result Performing Organization Address [facility] Phone Number [facility] [place] [address] * (ABNORMAL) Pro B-type natriuretic peptide (06/04/2022 10:52 PM CDT) NT-proBNP 15,490(H) <=300 pg/mL [facility] Comment: Interpretive Comments: A. Dyspnea in Acute Care Setting All Ages: ?< 300 pg/ml, acute heart failure unlikely. < 50 yrs: ?300 - 450 pg/ml, further investigation warranted. ? > 450 pg/ml, acute heart failure likely. 50 - 74 yrs: ? 300 - 900 pg/ml, further investigation warranted. ? > 900 pg/ml, acute heart failure likely . > or = 75 yrs: ? 450 - 1800 pg/ml, further investigation warranted. ? > 1800 pg/ml, acute heart failure likely. B. Non-acute Setting < 75 yrs ? < 125 pg/ml, rules out heart failure. ? > or = 125 pg/ml, further investigation warranted. > or = 75 yrs ?< 450 pg/ml, rules out heart failure. ? > or = 450 pg/ml, further investigation warranted. - Knowledge of each individual patient's NT-proBNP range may be more useful than using similar cut-points for every patient. Please note that marked elevations in NT-proBNP levels may be observed in state other than Left Ventricular Congestive Failure, including: acute coronary syndromes, right heart strain/failure (including pulmonary embolism and cor pulmonale), critical illness, renal failure, as well as advanced age. - References: 1. Aspen LIU et.al. Eur Heart J. 2006:27:330-337. 2. Dayo RW, Jaime PUTNAM. J. AM Elena Cardiol: Cardiovasc Imag. 2009;2: 216- 225. Interpretive Data Last Revised Date: 2018. Blood 06/04/2022 10:5 2 PM CDT 06/04/2022 11:56 PM CDT us Catherine Adams MD LAB BLOOD ORDERABLES Final Result [facility] Department of Laboratories [place], [place] [id number] * (ABNORMAL) CBC with auto differential (06/04/2022 10:52 PM CDT) Pathologist [facility] WBC 7.7 3.8 - 9.9 K/cumm [facility] Hgb 9.5(L) 13.0 - 17.5 g/dL [facility] Hct 27.2(L) 38.9 - 50.3 % [facility] Plt 195 150 - 400 K/cumm [facility] MPV 11.3 9.1 - 12.3 fL [facility] RBC 3.10(L) 4.30 - 5.80 M/cumm [facility] MCV 87.7 81.3 - 96.4 fL [facility] MCH 30.6 27.1 - 33.3 pg [facility] MCHC 34.9 32.3 - 35.7 g/dL [facility] RDW CV 12.5 11.1 - 14.9 % [facility] RDW SD 40.2 35.7 - 48.1 fL [facility] NRBC abs 0.00 0.00 - 0.01 K/cumm [facility] Blood 06/04/2022 10:5 2 PM CDT 06/04/2022 11:56 PM CDT us Catherine Adams MD LAB BLOOD ORDERABLES Final Result [facility] Department [place] [address] * (ABNORMAL) Comprehensive metabolic panel (06/04/2022 10:52 PM CDT) [facility] Sodium 129(L) 135 - 145 mmol/L [facility] Potassium, pl 4.0 3.3 - 4.9 mmol/L [facility] Chloride 88(L) 97 - 110 mmol/L [facility] CO2 24 22 - 32 mmol/L [facility] Anion gap 17(H) 2 - 15 mmol/L [facility] BUN 82(H) 8 - 25 mg/dL [facility] Creatinine 8.95(H) 0.80 - 1.30 mg/dL [facility] Glucose 185 70 - 199 mg/dL [facility] Comment: Interpretive Data Fasting glucose >/= [...] classification and Diagnosis of Diabetes Diabetes Care 2017;40 (Suppl. 1):S11. Current interpretive data was last revised 2017. Calcium 8.6 8.5 - 10.3 mg/dL [facility] Bilirubin, total 0.5 0.1 - 1.2 mg/dL [facility] Protein, pl 6.5 6.5 - 8.5 g/dL [facility] Albumin 3.6 3.5 - 5.0 g/dL [facility] Alk phos 115 40 - 130 Units/L [facility] ALT 37 7 - 55 Units/L [facility] AST 53(H) 10 - 50 Units/L [facility] Blood 06/04/2022 10:5 2 PM CDT 06/04/2022 11:56 PM CDT Catherine Adams MD LAB BLOOD ORDERABLES Final Result [facility] Department [place] [address] * XR Chest 1 View (06/04/2022 10:50 PM CDT) Anatomical Region Laterality Modality Body, Chest N/A Computed Radiogr aphy 06/05/2022 9:31 AM CDT Impressions 06/05/2022 9:31 AM CDT Stable cardiomediastinal silhouette with normal heart size. ??Increase in left base and retrocardiac airspace opacities which could be due to worsening atelectasis or pneumonia. ??Left lateral costophrenic angle haziness suggestive of small pleural effusion. ??Increased right infrahilar streaky opacities may represent atelectasis or aspiration. No pneumothorax. Electronically signed by: Dimitrios Slater M.D. Narrative 06/05/2022 9:31 AM CDT EXAMINATION: 1 view chest radiograph COMPARISON: 06/02/2022 Procedure Note Dimitrios Slater MD - 06/05/2022 EXAMINATION: 1 view chest radiograph COMPARISON: 06/02/2022 IMPRESSION: Stable cardiomediastinal silhouette with normal heart size. Increase in left base and retrocardiac airspace opacities which could be due to worsening atelectasis or pneumonia. Left lateral costophrenic angle haziness suggestive of small pleural effusion. Increased right infrahilar streaky opacities may represent atelectasis or aspiration. No pneumothorax. Electronically signed by: Dimitrios Slater M.D. Catherine Adams MD IMG XR PROCEDURES Final Res ult documented in this encounter Visit Diagnoses Diagnosis NSTEMI (non-ST elevated myocardial infarction) ([facility]) ([facility])- Primary Acute myocardial infarction, subendocardial infarction, episode of care unspecified Diagnosis unknown Coronary artery disease involving [place] and [place] heart without angina pectoris, unspecified vessel or lesion type Unstable angina ([facility]) ([facility]) Intermediate coronary syndrome Hyperlipidemia, unspecified hyperlipidemia type Hypotension, unspecified hypotension type Acute hypoxemic respiratory failure ([facility]) Angina pectoris ([facility]) Other and unspecified angina pectoris End stage renal disease ([facility]) ([facility]) End stage renal disease Acute hypoxemic respiratory failure ([facility]) Type 1 diabetes mellitus ([facility]) Anemia Unspecified anemia ESRD (end stage renal disease) ([facility]) ([facility]) End stage renal disease Acute on chronic HFrEF (heart failure with reduced ejection fraction) ([facility]) Atrial fibrillation ([facility]) ([facility]) Atrial fibrillation Cardiogenic shock ([facility]) Cardiogenic shock CAD (coronary artery disease) Coronary atherosclerosis of unspecified type of vessel, [place] and [place] or graft Unstable angina ([facility]) ([facility]) Intermediate coronary syndrome Hypotension, unspecified hypotension type documented in this encounter Admitting Diagnoses Diagnosis Angina pectoris ([facility]) Other and unspecified angina pectoris Hypotension Unspecified hypotension documented in this encounter Administered Medications Inactive Administered Medications - up to 3 most recent administrations Medication Order MAR Action Action Date Dose Rate Site acetaminophen (TYLENOL) tablet 1,000 mg 1,000 mg, oral, Every 6 hours PRN, 1st line for pain, headaches, fever, Starting on Mon06/22/22 at 1930 Given 06/27/2022 5:47 PM SENIOR ART DIRECTOR 1,000 mg acetaminophen (TYLENOL) tablet 325 mg 325 mg, oral, Every 4 hours PRN, 1st line for pain, Starting on Mon06/05/22 at 0413 Given 06/15/2022 9:43 AM CDT 325 mg Given 06/15/2022 2:19 AM CDT 325 mg acetaminophen (TYLENOL) tablet 325 mg 325 mg, oral, Once, On Mon06/15/22 at 1045, For 1 dose Given 06/15/2022 9:45 AM CDT 325 mg acetaminophen (TYLENOL) tablet 650 mg 650 mg, oral, Every 4 hours PRN, 1st line for pain, Starting on Mon06/15/22 at 1011 Given 06/15/2022 1:54 PM CDT 650 mg albuterol HFA (PROVENTIL HFA,VENTOLIN HFA,PROAIR HFA) 90 mcg/actuation inhaler 2 puff 2 puff, inhalation, Every 6 hours PRN (socially responsible investment adviser), wheezing, shortness of breath, Starting on Mon06/05/22 at 0229 Given 06/15/2022 2:50 AM CDT 2 puffs alteplase (CATHFLO) 1 mg/mL syringe (premix) 1 mg 1 mg, intra-catheter, Once, On [place] 06/09/22 at 0445, For 1 dose, 60 to 120 minute dwell time. Refrigerate, Indications: Catheter clearanceIndications:Cathet er clearance Given 06/09/2022 4:48 AM CDT 1 mg alteplase (CATHFLO) 1 mg/mL syringe (premix) 1 mg 1 mg, intra-catheter, Once, On 06/11/22 at 0830, For 1 dose, 60 to 120 minute dwell time. Refrigerate, Indications: Catheter clearanceIndications:Cathet er clearance Given 06/11/2022 9:21 AM CDT 1 mg alteplase (CATHFLO) 1 mg/mL syringe (premix) 2 mg 2 mg, intra-catheter, Once, On 06/11/22 at 1730, For 1 dose, 60 to 120 minute dwell time. Refrigerate, Indications: Catheter clearanceIndications:Cathet er clearance Given 06/11/2022 6:10 PM CDT 2 mg alteplase (CATHFLO) 1 mg/mL syringe (premix) 2 mg 2 mg, intra-catheter, Once, On 06/11/22 at 1730, For 1 dose, 60 to 120 minute dwell time. Refrigerate, Indications: Catheter clearanceIndications:Cathet er clearance Given 06/11/2022 6:11 PM CDT 2 mg amiodarone (NEXTERONE) 150 mg/100 mL (1.5 mg/mL) in dextrose (premix) - ADS Override Pull Starting on 06/18/22 at 1832, For 1 dose, Created by cabinet override Use filter 0.22 micron or less amiodarone (NEXTERONE) 150 mg/100 mL (1.5 mg/mL) in dextrose (premix) 150 mg 150 mg, intravenous, at 600 mL/hr, Administer over 10 Minutes, Once, On 06/18/22 at 1915, For 1 dose, Use filter 0.22 micron or less New Bag 06/18/2022 6:42 PM CDT 150 mg 600 mL/hr amiodarone (NEXTERONE) 150 mg/100 mL (1.5 mg/mL) in dextrose (premix) 150 mg 150 mg, intravenous, at 600 mL/hr, Administer over 10 Minutes, Once, On 06/19/22 at 0215, For 1 dose, Use filter 0.22 micron or less New Bag 06/19/2022 2:26 AM CDT 150 mg 600 mL/hr amiodarone (NEXTERONE) 150 mg/100 mL (1.5 mg/mL) in dextrose (premix) 150 mg 150 mg, intravenous, at 600 mL/hr, Administer over 10 Minutes, Once, On 06/19/22 at 2230, For 1 dose, Use filter 0.22 micron or less New Bag 06/19/2022 10:27 PM CDT 150 mg 600 mL/hr amiodarone (NEXTERONE) 150 mg/100 mL (1.5 mg/mL) in dextrose (premix) 150 mg 150 mg, intravenous, at 600 mL/hr, Administer over 10 Minutes, Once, On 06/20/22 at 1700, For 1 dose, Use filter 0.22 micron or less New Bag 06/20/2022 5:37 PM CDT 150 mg 600 mL/hr amiodarone in dextrose (NEXTERONE) 360 mg/200 mL (1.8 mg/mL) infusion (premix) 1 mg/min (33.3333 mL/hr, rounded to 33.3 mL/hr), 1.8 mg/mL, intravenous, Continuous, Starting on Mon06/19/22 at 0300, Until Mon06/19/22 at 0842, Use filter 0.22 micron or less, Routine Rate/Dose Verify 06/19/2022 8:00 AM CDT 1 mg/min 33.3 mL/hr Rate/Dose Verify 06/19/2022 7:00 AM CDT 1 mg/min 33.3 mL /hr Rate/Dose Verify 06/19/2022 6:00 AM CDT 1 mg/min 33.3 mL /hr amiodarone in dextrose (NEXTERONE) 360 mg/200 mL (1.8 mg/mL) infusion (premix) 1 mg/min (33.3333 mL/hr, rounded to 33.3 mL/hr), 1.8 mg/mL, intravenous, Continuous, Starting on Mon06/19/22 at 0843, Until Mon06/21/22 at 1019, Use filter 0.22 micron or less, Routine Rate/Dose Verify 06/21/2022 10:00 AM CDT 1 mg/min 33.3 mL/hr Rate/Dose Verify 06/21/2022 9:00 AM CDT 1 mg/min 33.3 mL /hr New Bag 06/21/2022 8:42 AM CDT 1 mg/min 33.3 mL/hr amLODIPine (NORVASC) tablet 10 mg 10 mg, oral, Daily, First dose on Mon06/05/22 at 0900, On hold since Mon06/07/2022 at 1649 until manually unheld Given 06/07/2022 8:02 AM CDT 10 mg Given 06/06/2022 8:20 AM CDT 10 mg Given 06/05/2022 8:50 AM CDT 10 mg aspirin chewable tablet 81 mg 81 mg, oral, Once, On Mon06/07/22 at 1145, For 1 dose, Pre-Procedure (CV) Given 06/07/2022 11:37 AM CDT 81 mg aspirin chewable tablet 81 mg 81 mg, feeding tube, Daily, First dose on Mon06/08/22 at 1100 Given 06/22/2022 8:10 AM CDT 81 mg Given 06/21/2022 8:40 AM CDT 81 mg Given 06/20/2022 7:58 AM CDT 81 mg aspirin chewable tablet 81 mg 81 mg, oral, Daily, First dose (after last modification) on [place] 06/23/22 at 0900 Given 06/29/2022 8:23 AM SENIOR ART DIRECTOR 81 mg Given 06/28/2022 8:56 AM SENIOR ART DIRECTOR 81 mg Given 06/27/2022 8:17 AM SENIOR ART DIRECTOR 81 mg aspirin enteric coated tablet 81 mg 81 mg, oral, Daily, First dose on [place] 06/05/22 at 0900, Do not crush, chew, cut, dissolve, open or otherwise manipulate tablet/capsule. Given 06/07/2022 8:02 AM CDT 81 mg Given 06/06/2022 8:20 AM CDT 81 mg Given 06/05/2022 8:49 AM CDT 81 mg atorvastatin (LIPITOR) tablet 80 mg 80 mg, oral, Daily, First dose (after last modification) on 06/05/22 at 0900 Given 06/07/2022 8:01 AM CDT 80 mg Given 06/06/2022 8:20 AM CDT 80 mg Given 06/05/2022 8:49 AM CDT 80 mg atorvastatin (LIPITOR) tablet 80 mg 80 mg, feeding tube, Daily, First dose (after last modification) on [place] 06/09/22 at 0900 Given 06/22/2022 8:10 AM CDT 8 0 mg Given 06/21/2022 8:40 AM CDT 80 mg Given 06/20/2022 7:58 AM CDT 80 mg atorvastatin (LIPITOR) tablet 80 mg 80 mg, oral, Daily, First dose (after last modification) on [place] 06/23/22 at 0900 Given 06/29/2022 8:23 AM SENIOR ART DIRECTOR 80 mg Given 06/28/2022 8:56 AM SENIOR ART DIRECTOR 80 mg Given 06/27/2022 8:18 AM SENIOR ART DIRECTOR 80 mg azithromycin (ZITHROMAX) tablet 500 mg 500 mg, oral, Once, On Mon06/05/22 at 0900, For 1 dose, Indications: Pneumonia, Community AcquiredIndications:Pneumonia, Community Acquired Given 06/05/2022 8:49 AM CDT 500 mg barium sulfate (VARIBAR NECTAR) 40 % (w/v) nectar oral, Once in imaging, contrast, Starting on Mon06/21/22 at 1414, For 1 dose, Pre-Op/Floor, Shake well Contrast Given 06/21/2022 2:14 PM CDT 20 mL barium sulfate (VARIBAR PUDDING) 40 % (w/v), 30% (w/w) pudding oral, Once in imaging, contrast, Starting on Mon06/21/22 at 1409, For 1 dose, Pre-Op/Floor Contrast Given 06/21/2022 2:09 PM CDT 10 mL barium sulfate (VARIBAR THIN LIQUID) 81 % (w/w) thin liquid oral, Once in imaging, contrast, Starting on Mon06/21/22 at 1407, For 1 dose, Pre-Op/Floor Contrast Given 06/21/2022 2:07 PM CDT 60 mL barium sulfate (VARIBAR) 40 % (w/v) 29% (w/w) suspension 250 mL 250 mL, oral, Once in imaging, contrast, Starting on Mon06/21/22 at 1417, For 1 dose, Pre-Op/Floor, Shake well Contrast Given 06/21/2022 2:17 PM CDT 250 mL calcitRIOL (ROCALTROL) 1 mcg/mL oral solution 0.25 mcg 0.25 mcg, feeding tube, Daily, First dose on Mon06/08/22 at 1100 Given 06/21/2022 8:40 AM CDT 0.25 mcg Given 06/20/2022 7:59 AM CDT 0.25 mcg Given 06/19/2022 8:50 AM CDT 0.25 mcg calcitRIOL (ROCALTROL) capsule 0.25 mcg 0.25 mcg, oral, Daily, First dose on 06/05/22 at 0900 Given 06/07/2022 8:01 AM CDT 0.25 mcg Given 06/06/2022 8:20 AM CDT 0.25 mcg Given 06/05/2022 8:49 AM CDT 0.25 mcg calcitRIOL (ROCALTROL) capsule 0.25 mcg 0.25 mcg, oral, Daily, First dose on Mon06/22/22 at 1000 Given 06/29/2022 8:23 AM SENIOR ART DIRECTOR 0.25 mcg Given 06/28/2022 8:56 AM SENIOR ART DIRECTOR 0.25 mcg Given 06/27/2022 8:17 AM SENIOR ART DIRECTOR 0.25 mcg calcium acetate(phosphat bind) (PHOSLO) capsule 667 mg 667 mg, oral, 4 times daily, First dose on Mon06/05/22 at 0800, Take with food Given 06/29/2022 12:34 PM SENIOR ART DIRECTOR 667 mg Given 06/29/2022 8:23 AM SENIOR ART DIRECTOR 667 mg Given 06/28/2022 9:00 PM SENIOR ART DIRECTOR 667 mg calcium carbonate (TUMS) chewable tablet 500 mg 500 mg (200 mg of elemental calcium), oral, Once, On Mon06/24/22 at 2145, For 1 dose Given 06/24/2022 9:38 PM CDT 500 mg cefTRIAXone (ROCEPHIN) 1,000 mg/10 mL in sterile water (premix) 1,000 mg 1,000 mg, intravenous, at 600 mL/hr, Administer over 1 Minutes, Every 24 hours scheduled, First dose on Mon06/05/22 at 0300, Indications: Pneumonia, Community AcquiredIndications:Pneumonia, Community Acquired Given 06/05/2022 4:23 AM CDT 1,000 mg 600 mL/hr chlorhexidine (PERIDEX) 0.12 % solution 15 mL 15 mL, mouth/throat, 2 times daily, First dose on [place] 06/09/22 at 0145 Given 06/21/2022 8:40 AM CDT 15 mL Given 06/20/2022 8:01 AM CDT 15 mL Given 06/19/2022 8:49 AM CDT 15 mL cloNIDine (CATAPRES) tablet 0.1 mg 0.1 mg, oral, 2 times daily, First dose on Mon06/06/22 at 1100, On hold since Mon06/08/2022 at 0101 until manually unheld Given 06/07/2022 8:02 AM CDT 0.1 mg Given 06/06/2022 8:19 PM CDT 0.1 mg Given 06/06/2022 11:33 AM CDT 0.1 mg clopidogreL (PLAVIX) tablet 600 mg 600 mg, oral, Once, On Mon06/07/22 at 0845, For 1 dose Given 06/07/2022 9:57 AM CDT 600 mg clopidogreL (PLAVIX) tablet 75 mg 75 mg, oral, Daily, First dose on Mon06/05/22 at 0900 Given 06/08/2022 8:54 AM CDT 75 mg Given 06/07/2022 8:01 AM CDT 75 mg Given 06/06/2022 8:20 AM CDT 75 mg clopidogreL (PLAVIX) tablet 75 mg 75 mg, feeding tube, Daily, First dose (after last modification) on [place] 06/09/22 at 0900 Given 06/22/2022 8:10 AM CDT 7 5 mg Given 06/21/2022 8:40 AM CDT 75 mg Given 06/20/2022 7:58 AM CDT 75 mg clopidogreL (PLAVIX) tablet 75 mg 75 mg, oral, Daily, First dose (after last modification) on [place] 06/23/22 at 0900 Given 06/29/2022 8:23 AM SENIOR ART DIRECTOR 75 mg Given 06/28/2022 8:56 AM SENIOR ART DIRECTOR 75 mg Given 06/27/2022 8:18 AM SENIOR ART DIRECTOR 75 mg dexmedeTOMIDine in 0.9% sodium chloride (PRECEDEX) 400 mcg/100 mL (4 mcg/mL) infusion (premix) 0-1.5 mcg/kg/hr ? 135.8 kg (0-50.925 mL/hr, rounded to 0-50.93 mL/hr), 4 mcg/mL, intravenous, Titrated, Starting on Mon06/10/22 at 1900, Until Mon06/19/22 at 1756, Titration instructions: Titrate, Initial dose: 0.2 mcg/kg/hr, Titrate: Up/Down, Titrate by: 0.1 mcg/kg/hr, Every: 30 minutes, Goal: RASS, RASS Goal: 0, -1, -2, Routine Rate/Dose Change 06/19/2022 11:45 AM CDT 0.6 mcg/kg/hr 20.4 mL/hr Rate/Dose Verify 06/19/2022 11:00 AM CDT 0.7 mcg/kg/hr 23. 8 mL/hr Rate/Dose Verify 06/19/2022 10:00 AM CDT 0.7 mcg/kg/hr 23. 8 mL/hr dextrose (D10W) 10% bolus 250 mL 250 mL, intravenous, at 1,000 mL/hr, Administer over 15 Minutes, Every 15 min PRN, blood glucose less than 70 mg/dL and UNABLE to swallow/take PO glucose/juice., Starting on [place] 06/23/22 at 1428, After treatment for hypoglycemia, recheck BG followed by treatment every 15 minutes until the BG is greater than 100 mg/dL. Then check BG 1 hour post treatment. If BG is less than 100 mg/dL, repeat Q15 minute BG checks and treatment. Call MD for each episode of hypoglycemia., Indications: hypoglycemic disorderIndications:hypoglyc emic disorder New Bag 06/23/2022 5:47 PM CDT 250 mL 1000 mL/hr dextrose (D10W) 10% bolus 250 mL 250 mL, intravenous, at 1,000 mL/hr, Administer over 15 Minutes, Every 15 min PRN, blood glucose less than 70 mg/dL and UNABLE to swallow/take PO glucose/juice., Starting on 06/27/22 at 1302, After treatment for hypoglycemia, recheck BG followed by treatment every 15 minutes until the BG is greater than 100 mg/dL. Then check BG 1 hour post treatment. If BG is less than 100 mg/dL, repeat Q15 minute BG checks and treatment. Call MD for each episode of hypoglycemia., Indications: hypoglycemic disorderIndications:hypoglyc emic disorder dextrose 10% infusion - ADS Override Pull Starting on Mon06/23/22 at 1503, For 1 dose, Created by destini override dextrose 10% infusion 10 mL/hr, intravenous, Continuous, Starting on Mon06/08/22 at 1500 Rate/Dose Verify 06/10/2022 11:00 AM CDT 10 mL/hr 10 mL/hr Rate/Dose Verify 06/10/2022 10:00 AM CDT 10 mL/hr 10 mL/ hr Rate/Dose Verify 06/10/2022 9:00 AM CDT 10 mL/hr 10 mL/h r dextrose 5% infusion 50 mL/hr, intravenous, Continuous, Starting on Mon06/07/22 at 2300 Rate/Dose Verify 06/08/2022 5:00 AM CDT 50 mL/hr 50 mL/hr Rate/Dose Verify 06/08/2022 4:00 AM CDT 50 mL/hr 50 mL/h r Rate/Dose Verify 06/08/2022 3:00 AM CDT 50 mL/hr 50 mL/h r dextrose 5% water flush 10 mL 10 mL, intra-catheter, As needed, CO measurement, Starting on Mon06/07/22 at 1638, 10 mL volume for each attempt to measure cardiac output. dextrose 5% water flush 10-30 mL 10-30 mL, intra-catheter, As needed, volume as needed for cardiac output measurement unless continuous cardiac output available, Starting on Mon06/07/22 at 1650 dextrose gel in packet 15 g 15 g, oral, Every 15 min PRN, low blood sugar, blood glucose less than 70 mg/dL, Starting on Mon06/27/22 at 1302, If patient is alert and able to [...] episode of hypoglycemia., Indications: hypoglycemic disorderIndications:hypoglycemic disorder Dianeal low calcium-dextrose 1.5 % 2,000 mL dialysis solution intraperitoneal, Continuous, Starting on Mon06/13/22 at 0800, For 24 hours, Indications: Peritoneal DialysisIndications:Peritoneal Dialysis New Bag 06/13/2022 10:47 AM CDT 500 mL/hr Dianeal low calcium-dextrose 1.5 % 2,500 mL dialysis solution intraperitoneal, Continuous, Starting on Mon06/24/22 at 1330, For 24 hours, CCPD bag number: 3, Indications: Peritoneal DialysisIndications:Peritoneal Dialysis New Bag 06/24/2022 8:20 PM CDT Dianeal low calcium-dextrose 2.5 % 2,000 mL dialysis solution intraperitoneal, Continuous, Starting on Mon06/05/22 at 1330, For 24 hours, CCPD bag number: 3, Indications: Peritoneal DialysisIndications:Peritoneal Dialysis New Bag 06/05/2022 8:41 PM CDT Dianeal low calcium-dextrose 2.5 % 2,000 mL dialysis solution intraperitoneal, Continuous, Starting on 06/26/22 at 1345, For 24 hours, CCPD bag number: 3, Indications: Peritoneal DialysisIndications:Peritoneal Dialysis New Bag 06/26/2022 7:38 PM SENIOR ART DIRECTOR Dianeal low calcium-dextrose 2.5 % 2,500 mL dialysis solution intraperitoneal, Continuous, Starting on 06/04/22 at 2330, For 24 hours, CCPD bag number: 3, Indications: Peritoneal DialysisIndications:Peritoneal Dialysis New Bag 06/05/2022 1:44 AM CDT Dianeal low calcium-dextrose 2.5 % 2,500 mL dialysis solution intraperitoneal, Continuous, Starting on Tu06/21/22 at 1430, For 24 hours, CCPD bag number: 3, Indications: Peritoneal DialysisIndications:Peritoneal Dialysis New Bag 06/21/2022 7:26 PM CDT Dianeal low calcium-dextrose 2.5 % 2,500 mL dialysis solution intraperitoneal, Continuous, Starting on [place] 06/23/22 at 1815, For 24 hours, CCPD bag number: 3, Indications: Peritoneal DialysisIndications:Peritoneal Dialysis New Bag 06/23/2022 7:48 PM CDT New Bag 06/23/2022 7:47 PM CDT Dianeal low calcium-dextrose 2.5 % 2,500 mL dialysis solution intraperitoneal, Continuous, Starting on 06/25/22 at 1315, For 24 hours, CCPD bag number: 3, Indications: Peritoneal DialysisIndications:Peritoneal Dialysis New Bag 06/25/2022 8:27 PM CDT Dianeal low calcium-dextrose 2.5 % 2,500 mL dialysis solution intraperitoneal, Continuous, Starting on 06/27/22 at 1630, For 24 hours, CCPD bag number: 3, Indications: Peritoneal DialysisIndications:Peritoneal Dialysis New Bag 06/27/2022 8:07 PM SENIOR ART DIRECTOR Dianeal low calcium-dextrose 2.5 % 2,500 mL dialysis solution intraperitoneal, Continuous, Starting on Tu06/28/22 at 1245, For 24 hours, CCPD bag number: 3, Indications: Peritoneal DialysisIndications:Peritoneal Dialysis New Bag 06/28/2022 8:04 PM SENIOR ART DIRECTOR Dianeal low calcium-dextrose 2.5 % 5,000 mL dialysis solution intraperitoneal, Continuous, Starting on 06/04/22 at 2330, For 24 hours, CCPD bag number: 1, Indications: Peritoneal DialysisIndications:Peritoneal Dialysis New Bag 06/05/2022 1:44 AM CDT Dianeal low calcium-dextrose 2.5 % 5,000 mL dialysis solution intraperitoneal, Continuous, Starting on 06/04/22 at 2330, For 24 hours, CCPD bag number: 2, Indications: Peritoneal DialysisIndications:Peritoneal Dialysis New Bag 06/05/2022 1:44 AM CDT Dianeal low calcium-dextrose 2.5 % 5,000 mL dialysis solution intraperitoneal, Continuous, Starting on 06/05/22 at 1330, For 24 hours, CCPD bag number: 1, Indications: Peritoneal DialysisIndications:Peritoneal Dialysis New Bag 06/05/2022 8:40 PM CDT Rate/Dose Change 06/05/2022 6:00 PM CDT Dianeal low calcium-dextrose 2.5 % 5,000 mL dialysis solution intraperitoneal, Continuous, Starting on 06/05/22 at 1330, For 24 hours, CCPD bag number: 2, Indications: Peritoneal DialysisIndications:Peritoneal Dialysis New Bag 06/05/2022 8:40 PM CDT Dianeal low calcium-dextrose 2.5 % 5,000 mL dialysis solution intraperitoneal, Continuous, Starting on Mon06/06/22 at 1700, For 24 hours, CCPD bag number: 1, Indications: Peritoneal DialysisIndications:Peritoneal Dialysis New Bag 06/06/2022 9:18 PM CDT Dianeal low calcium-dextrose 2.5 % 5,000 mL dialysis solution intraperitoneal, Continuous, Starting on Mon06/06/22 at 1700, For 24 hours, CCPD bag number: 2, Indications: Peritoneal DialysisIndications:Peritoneal Dialysis New Bag 06/06/2022 9:18 PM CDT Dianeal low calcium-dextrose 2.5 % 5,000 mL dialysis solution intraperitoneal, Continuous, Starting on Mon06/15/22 at 1800, For 24 hours, CCPD bag number: 1, Indications: Peritoneal DialysisIndications:Peritoneal Dialysis New Bag 06/15/2022 8:31 PM CDT Dianeal low calcium-dextrose 2.5 % 5,000 mL dialysis solution intraperitoneal, Continuous, Starting on Mon06/15/22 at 1800, For 24 hours, CCPD bag number: 2, Indications: Peritoneal DialysisIndications:Peritoneal Dialysis New Bag 06/15/2022 8:32 PM CDT Dianeal low calcium-dextrose 2.5 % 5,000 mL dialysis solution intraperitoneal, Continuous, Starting on Mon06/15/22 at 1830, For 24 hours, CCPD bag number: 3, Indications: Peritoneal DialysisIndications:Peritoneal Dialysis New Bag 06/15/2022 8:32 PM CDT Dianeal low calcium-dextrose 2.5 % 5,000 mL dialysis solution intraperitoneal, Continuous, Starting on Mon06/16/22 at 2015, For 24 hours, CCPD bag number: 1, Indications: Peritoneal DialysisIndications:Peritoneal Dialysis New Bag 06/16/2022 11:12 PM CDT Dianeal low calcium-dextrose 2.5 % 5,000 mL dialysis solution intraperitoneal, Continuous, Starting on Mon06/16/22 at 2015, For 24 hours, CCPD bag number: 2, Indications: Peritoneal DialysisIndications:Peritoneal Dialysis New Bag 06/16/2022 11:12 PM CDT Dianeal low calcium-dextrose 2.5 % 5,000 mL dialysis solution intraperitoneal, Continuous, Starting on Mon06/16/22 at 2015, For 24 hours, CCPD bag number: 1, Indications: Peritoneal DialysisIndications:Peritoneal Dialysis New Bag 06/17/2022 12:08 PM CDT Dianeal low calcium-dextrose 2.5 % 5,000 mL dialysis solution intraperitoneal, Continuous, Starting on Mon06/16/22 at 2015, For 24 hours, CCPD bag number: 2, Indications: Peritoneal DialysisIndications:Peritoneal Dialysis New Bag 06/17/2022 12:10 PM CDT Dianeal low calcium-dextrose 2.5 % 5,000 mL dialysis solution intraperitoneal, Continuous, Starting on Mon06/17/22 at 1730, For 24 hours, CCPD bag number: 1, Indications: Peritoneal DialysisIndications:Peritoneal Dialysis New Bag 06/18/2022 1:56 AM CDT Dianeal low calcium-dextrose 2.5 % 5,000 mL dialysis solution intraperitoneal, Continuous, Starting on Mon06/17/22 at 1730, For 24 hours, CCPD bag number: 2, Indications: Peritoneal DialysisIndications:Peritoneal Dialysis New Bag 06/18/2022 1:56 AM CDT Dianeal low calcium-dextrose 2.5 % 5,000 mL dialysis solution intraperitoneal, Continuous, Starting on Mon06/17/22 at 1730, For 24 hours, CCPD bag number: 3, Indications: Peritoneal DialysisIndications:Peritoneal Dialysis New Bag 06/18/2022 1:56 AM CDT Dianeal low calcium-dextrose 2.5 % 5,000 mL dialysis solution intraperitoneal, Continuous, Starting on Mon06/21/22 at 1430, For 24 hours, CCPD bag number: 1, Indications: Peritoneal DialysisIndications:Peritoneal Dialysis New Bag 06/21/2022 7:17 PM CDT Dianeal low calcium-dextrose 2.5 % 5,000 mL dialysis solution intraperitoneal, Continuous, Starting on Mon06/21/22 at 1430, For 24 hours, CCPD bag number: 2, Indications: Peritoneal DialysisIndications:Peritoneal Dialysis New Bag 06/21/2022 7:17 PM CDT Dianeal low calcium-dextrose 2.5 % 5,000 mL dialysis solution intraperitoneal, Continuous, Starting on Mon06/23/22 at 1815, For 24 hours, CCPD bag number: 1, Indications: Peritoneal DialysisIndications:Peritoneal Dialysis New Bag 06/23/2022 7:48 PM CDT Dianeal low calcium-dextrose 2.5 % 5,000 mL dialysis solution intraperitoneal, Continuous, Starting on Mon06/23/22 at 1815, For 24 hours, CCPD bag number: 2, Indications: Peritoneal DialysisIndications:Peritoneal Dialysis New Bag 06/23/2022 7:50 PM CDT Dianeal low calcium-dextrose 2.5 % 5,000 mL dialysis solution intraperitoneal, Continuous, Starting on Mon06/24/22 at 1330, For 24 hours, CCPD bag number: 1, Indications: Peritoneal DialysisIndications:Peritoneal Dialysis New Bag 06/24/2022 8:20 PM CDT Dianeal low calcium-dextrose 2.5 % 5,000 mL dialysis solution intraperitoneal, Continuous, Starting on Mon06/24/22 at 1330, For 24 hours, CCPD bag number: 2, Indications: Peritoneal DialysisIndications:Peritoneal Dialysis New Bag 06/24/2022 8:20 PM CDT Dianeal low calcium-dextrose 2.5 % 5,000 mL dialysis solution intraperitoneal, Continuous, Starting on Mon06/25/22 at 1315, For 24 hours, CCPD bag number: 1, Indications: Peritoneal DialysisIndications:Peritoneal Dialysis New Bag 06/25/2022 8:28 PM CDT Dianeal low calcium-dextrose 2.5 % 5,000 mL dialysis solution intraperitoneal, Continuous, Starting on Mon06/25/22 at 1315, For 24 hours, CCPD bag number: 2, Indications: Peritoneal DialysisIndications:Peritoneal Dialysis New Bag 06/25/2022 8:28 PM CDT Dianeal low calcium-dextrose 2.5 % 5,000 mL dialysis solution intraperitoneal, Continuous, Starting on Mon06/26/22 at 1345, For 24 hours, CCPD bag number: 1, Indications: Peritoneal DialysisIndications:Peritoneal Dialysis New Bag 06/26/2022 7:37 PM SENIOR ART DIRECTOR Dianeal low calcium-dextrose 2.5 % 5,000 mL dialysis solution intraperitoneal, Continuous, Starting on Mon06/26/22 at 1345, For 24 hours, CCPD bag number: 2, Indications: Peritoneal DialysisIndications:Peritoneal Dialysis New Bag 06/26/2022 7:37 PM SENIOR ART DIRECTOR Dianeal low calcium-dextrose 2.5 % 5,000 mL dialysis solution intraperitoneal, Continuous, Starting on Mon06/27/22 at 1630, For 24 hours, CCPD bag number: 1, Indications: Peritoneal DialysisIndications:Peritoneal Dialysis New Bag 06/27/2022 8:06 PM SENIOR ART DIRECTOR Dianeal low calcium-dextrose 2.5 % 5,000 mL dialysis solution intraperitoneal, Continuous, Starting on Mon06/27/22 at 1630, For 24 hours, CCPD bag number: 2, Indications: Peritoneal DialysisIndications:Peritoneal Dialysis New Bag 06/27/2022 8:06 PM SENIOR ART DIRECTOR Dianeal low calcium-dextrose 2.5 % 5,000 mL dialysis solution intraperitoneal, Continuous, Starting on Mon06/28/22 at 1245, For 24 hours, CCPD bag number: 1, Indications: Peritoneal DialysisIndications:Peritoneal Dialysis New Bag 06/28/2022 8:05 PM SENIOR ART DIRECTOR Dianeal low calcium-dextrose 2.5 % 5,000 mL dialysis solution intraperitoneal, Continuous, Starting on Mon06/28/22 at 1245, For 24 hours, CCPD bag number: 2, Indications: Peritoneal DialysisIndications:Peritoneal Dialysis New Bag 06/28/2022 8:05 PM SENIOR ART DIRECTOR Dianeal low calcium-dextrose 4.25 % 5,000 mL dialysis solution intraperitoneal, Continuous, Starting on Mon06/06/22 at 1700, For 24 hours, CCPD bag number: 3, Indications: Peritoneal DialysisIndications:Peritoneal Dialysis New Bag 06/06/2022 9:18 PM CDT diphenhydrAMINE (BENADRYL) capsule 50 mg 50 mg, oral, Once, On Mon06/07/22 at 1200, For 1 dose, Administer dose 1 hour prior to contrast media injection., Indications: IV Contrast Media Allergy PremedicationIndications:IV Contrast Media Allergy Premedication Given 06/07/2022 10:18 AM CDT 50 mg docusate (COLACE) 10 mg/mL oral liquid 100 mg 100 mg, feeding tube, Daily, First dose on Mon06/08/22 at 1100, Indications: constipationIndications:constipation Given 06/20/2022 7:58 AM CDT 100 mg Given 06/19/2022 8:49 AM CDT 100 mg Given 06/18/2022 9:47 AM CDT 100 mg docusate sodium (COLACE) capsule 100 mg 100 mg, oral, Daily, First dose on Mon06/05/22 at 0900, Indications: constipationIndications:constipation Given 06/07/2022 8:02 AM CDT 100 mg Given 06/06/2022 8:20 AM CDT 100 mg Given 06/05/2022 8:50 AM CDT 100 mg epoprostenol (VELETRI) 20 mcg/ml in 0.9% sodium chloride inhalation solution 160 mcg/hr (8 mL/hr), nebulization, Continuous (socially responsible investment adviser), Starting on Mon06/07/22 at 1415, For monitoring and weaning of inhaled epoprostenol therapy, assess for positive or negative responses, and contact the medical provider to obtain new orders when indicated. For positive responses (listed below): Typical practice is to wean the rate (from 160 mcg/hr (8 ml/hr) to 80 mcg/hr (4 ml/hr) to 40 mcg/hr (2 ml/hr) every 4 hours until discontinued. For negative responses (listed below): Typical practice is to resume the previous rate, then reassess. Contact the medical provider immediately if the patient's systolic blood pressure decreases more than 10% after initiation of epoprostenol, or if patient does not have a positive response within 4 hours of starting current rate. Positive Responses: Decrease in pulmonary artery pressure by 15% Improvement in cardiac index by 10% Improvement in PaO2/FiO2 ratio by 10% Negative Responses: Increase in pulmonary artery pressure by 15% Increase in pulmonary vascular resistance by 30% Decrease in oxygen saturation to less than 88% for greater than 5 minutes Decrease in cardiac index to less than 2.2 liters/min/m2 Decrease in PaO2/FiO2 ratio to less than 150 Request refill only when < 2 hours of drug remaining. Warning: Start administration immediately. Infection risk if started >1 hr after preparation. , Indications: Severe HypoxemiaIndications:Severe Hypoxemia Rate/Dose Verify 06/08/2022 11:43 AM CDT 160 mcg/hr 8 mL/hr Rate/Dose Verify 06/08/2022 9:40 AM CDT 160 mcg/hr 8 mL/hr New Bag 06/08/2022 7:12 AM CDT 160 mcg/hr 8 mL/hr epoprostenol (VELETRI) 20 mcg/ml in 0.9% sodium chloride inhalation solution 120 mcg/hr (6 mL/hr), nebulization, Continuous (socially responsible investment adviser), Starting on Mon06/08/22 at 0800, For monitoring and weaning of inhaled epoprostenol therapy, assess for positive or negative responses, and contact the medical provider to obtain new orders when indicated. For positive responses (listed below): Typical practice is to wean the rate (from 160 mcg/hr (8 ml/hr) to 80 mcg/hr (4 ml/hr) to 40 mcg/hr (2 ml/hr) every 4 hours until discontinued. For negative responses (listed below): Typical practice is to resume the previous rate, then reassess. Contact the medical provider immediately if the patient's systolic blood pressure decreases more than 10% after initiation of epoprostenol, or if patient does not have a positive response within 4 hours of starting current rate. Positive Responses: Decrease in pulmonary artery pressure by 15% Improvement in cardiac index by 10% Improvement in PaO2/FiO2 ratio by 10% Negative Responses: Increase in pulmonary artery pressure by 15% Increase in pulmonary vascular resistance by 30% Decrease in oxygen saturation to less than 88% for greater than 5 minutes Decrease in cardiac index to less than 2.2 liters/min/m2 Decrease in PaO2/FiO2 ratio to less than 150 Request refill only when < 2 hours of drug remaining. Warning: Start administration immediately. Infection risk if started >1 hr after preparation. , Indications: Severe HypoxemiaIndications:Severe Hypoxemia New Bag 06/08/2022 8:22 PM CDT 120 mcg/hr 6 mL/hr Rate/Dose Change 06/08/2022 6:00 PM CDT 120 mcg/hr 6 mL/hr Rate/Dose Verify 06/08/2022 4:08 PM CDT 160 mcg/hr 8 mL/hr epoprostenol (VELETRI) 20 mcg/ml in 0.9% sodium chloride inhalation solution 80 mcg/hr (4 mL/hr), nebulization, Continuous (socially responsible investment adviser), Starting on Gregoria 06/09/22 at 0315, For monitoring and weaning of inhaled epoprostenol therapy, assess for positive or negative responses, and contact the medical provider to obtain new orders when indicated. For positive responses (listed below): Typical practice is to wean the rate (from 160 mcg/hr (8 ml/hr) to 80 mcg/hr (4 ml/hr) to 40 mcg/hr (2 ml/hr) every 4 hours until discontinued. For negative responses (listed below): Typical practice is to resume the previous rate, then reassess. Contact the medical provider immediately if the patient's systolic blood pressure decreases more than 10% after initiation of epoprostenol, or if patient does not have a positive response within 4 hours of starting current rate. Positive Responses: Decrease in pulmonary artery pressure by 15% Improvement in cardiac index by 10% Improvement in PaO2/FiO2 ratio by 10% Negative Responses: Increase in pulmonary artery pressure by 15% Increase in pulmonary vascular resistance by 30% Decrease in oxygen saturation to less than 88% for greater than 5 minutes Decrease in cardiac index to less than 2.2 liters/min/m2 Decrease in PaO2/FiO2 ratio to less than 150 Request refill only when < 2 hours of drug remaining. Warning: Start administration immediately. Infection risk if started >1 hr after preparation. , Indications: Severe HypoxemiaIndications:Severe Hypoxemia Rate/Dose Change 06/09/2022 3:30 AM CDT 80 mcg/hr 4 mL/hr epoprostenol (VELETRI) 20 mcg/ml in 0.9% sodium chloride inhalation solution 120 mcg/hr (6 mL/hr), nebulization, Continuous (socially responsible investment adviser), Starting on Mon06/09/22 at 0645, For monitoring and weaning of inhaled epoprostenol therapy, assess for positive or negative responses, and contact the medical provider to obtain new orders when indicated. For positive responses (listed below): Typical practice is to wean the rate (from 160 mcg/hr (8 ml/hr) to 80 mcg/hr (4 ml/hr) to 40 mcg/hr (2 ml/hr) every 4 hours until discontinued. For negative responses (listed below): Typical practice is to resume the previous rate, then reassess. Contact the medical provider immediately if the patient's systolic blood pressure decreases more than 10% after initiation of epoprostenol, or if patient does not have a positive response within 4 hours of starting current rate. Positive Responses: Decrease in pulmonary artery pressure by 15% Improvement in cardiac index by 10% Improvement in PaO2/FiO2 ratio by 10% Negative Responses: Increase in pulmonary artery pressure by 15% Increase in pulmonary vascular resistance by 30% Decrease in oxygen saturation to less than 88% for greater than 5 minutes Decrease in cardiac index to less than 2.2 liters/min/m2 Decrease in PaO2/FiO2 ratio to less than 150 Request refill only when < 2 hours of drug remaining. Warning: Start administration immediately. Infection risk if started >1 hr after preparation. , Indications: Severe HypoxemiaIndications:Severe Hypoxemia New Bag 06/09/2022 7:23 PM CDT 120 mcg/hr 6 mL/hr Rate/Dose Verify 06/09/2022 7:00 PM CDT 120 mcg/hr 6 mL/hr Rate/Dose Verify 06/09/2022 6:00 PM CDT 120 mcg/hr 6 mL/hr epoprostenol (VELETRI) 20 mcg/ml in 0.9% sodium chloride inhalation solution 40 mcg/hr (2 mL/hr), nebulization, Continuous (socially responsible investment adviser), Starting on Mon06/10/22 at 0600, Request only when < 2 hours of drug remaining Warning: Start administration immediately. Infection risk if started >1 hr after preparation. , Indications: Severe Hypoxemia, On hold since Mon06/10/2022 at 0945 until manually unheldIndications:Severe Hypoxemia Rate/Dose Verify 06/10/2022 9:00 AM CDT 40 mcg/hr 2 mL/hr Rate/Dose Verify 06/10/2022 8:00 AM CDT 40 mcg/hr 2 mL/hr Rate/Dose Verify 06/10/2022 7:10 AM CDT 40 mcg/hr 2 mL/hr ergocalciferol (VITAMIN D) capsule 50,000 Units 50,000 Units, oral, Weekly, First dose on Mon06/06/22 at 0900, Do not crush, break, or open., On hold since Mon06/08/2022 at 0101 until manually unheld Given 06/06/2022 8:20 AM CDT 50,000 Units Extraneal 7.5% AMBU-FLEX 2,500 mL dialysis solution intraperitoneal, Continuous, Starting on Mon06/05/22 at 1330, For 24 hours, CCPD bag number: 4, Indications: Peritoneal DialysisIndications:Peritoneal Dialysis New Bag 06/05/2022 8:41 PM CDT Extraneal 7.5% AMBU-FLEX 2,500 mL dialysis solution intraperitoneal, Continuous, Starting on Mon06/06/22 at 1700, For 24 hours, CCPD bag number: 4, Indications: Peritoneal DialysisIndications:Peritoneal Dialysis New Bag 06/06/2022 9:18 PM CDT Extraneal 7.5% AMBU-FLEX 2,500 mL dialysis solution intraperitoneal, Continuous, Starting on Mon06/15/22 at 1800, For 24 hours, CCPD bag number: 4, Indications: Peritoneal DialysisIndications:Peritoneal Dialysis New Bag 06/15/2022 8:32 PM CDT Extraneal 7.5% AMBU-FLEX 2,500 mL dialysis solution intraperitoneal, Continuous, Starting on Mon06/21/22 at 1430, For 24 hours, CCPD bag number: 4, Indications: Peritoneal DialysisIndications:Peritoneal Dialysis New Bag 06/21/2022 7:16 PM CDT Extraneal 7.5% AMBU-FLEX 2,500 mL dialysis solution intraperitoneal, Continuous, Starting on Mon06/23/22 at 1815, For 24 hours, CCPD bag number: 4, Indications: Peritoneal DialysisIndications:Peritoneal Dialysis New Bag 06/23/2022 7:47 PM CDT Extraneal 7.5% AMBU-FLEX 2,500 mL dialysis solution intraperitoneal, Continuous, Starting on Mon06/24/22 at 1330, For 24 hours, CCPD bag number: 4, Indications: Peritoneal DialysisIndications:Peritoneal Dialysis New Bag 06/24/2022 8:20 PM CDT Extraneal 7.5% AMBU-FLEX 2,500 mL dialysis solution intraperitoneal, Continuous, Starting on 06/25/22 at 1315, For 24 hours, CCPD bag number: 4, Indications: Peritoneal DialysisIndications:Peritoneal Dialysis New Bag 06/25/2022 8:28 PM CDT Extraneal 7.5% AMBU-FLEX 2,500 mL dialysis solution intraperitoneal, Continuous, Starting on 06/27/22 at 1630, For 24 hours, CCPD bag number: 4, Indications: Peritoneal DialysisIndications:Peritoneal Dialysis New Bag 06/27/2022 8:07 PM SENIOR ART DIRECTOR Extraneal 7.5% AMBU-FLEX 2,500 mL dialysis solution intraperitoneal, Continuous, Starting on 06/28/22 at 1245, For 24 hours, CCPD bag number: 4, Indications: Peritoneal DialysisIndications:Peritoneal Dialysis New Bag 06/28/2022 8:05 PM SENIOR ART DIRECTOR Extraneal 7.5% ULTRABAG 2,000 mL dialysis solution intraperitoneal, Continuous, Starting on 06/04/22 at 2330, For 24 hours, Indications: Peritoneal DialysisIndications:Peritoneal Dialysis New Bag 06/05/2022 1:44 AM CDT Extraneal 7.5% ULTRABAG 2,000 mL dialysis solution intraperitoneal, Continuous, Starting on 06/26/22 at 1345, For 24 hours, Indications: Peritoneal DialysisIndications:Peritoneal Dialysis New Bag 06/26/2022 7:38 PM SENIOR ART DIRECTOR ezetimibe (ZETIA) tablet 10 mg 10 mg, oral, Daily, First dose on 06/05/22 at 0900 Given 06/08/2022 8:54 AM CDT 10 mg Given 06/07/2022 8:02 AM CDT 10 mg Given 06/06/2022 8:20 AM CDT 10 mg ezetimibe (ZETIA) tablet 10 mg 10 mg, feeding tube, Daily, First dose (after last modification) on Gregoria 06/09/22 at 0900 Given 06/22/2022 8:10 AM CDT 1 0 mg Given 06/21/2022 8:40 AM CDT 10 mg Given 06/20/2022 7:58 AM CDT 10 mg ezetimibe (ZETIA) tablet 10 mg 10 mg, oral, Daily, First dose (after last modification) on Gregoria 06/23/22 at 0900 Given 06/29/2022 8:23 AM SENIOR ART DIRECTOR 10 mg Given 06/28/2022 8:56 AM SENIOR ART DIRECTOR 10 mg Given 06/27/2022 8:18 AM SENIOR ART DIRECTOR 10 mg fentaNYL (SUBLIMAZE) bolus from bag 50 mcg 50 mcg, intravenous, Every 15 min PRN, breakthrough pain, Starting on Mon06/07/22 at 1722, Discontinue when patient extubated. ??, Indications: PainIndications:Pain Bolus from Bag 06/18/2022 8:00 PM CDT 50 mcg Bolus from Bag 06/17/2022 11:23 PM CDT 50 mcg Bolus from Bag 06/17/2022 8:00 PM CDT 50 mcg fentaNYL (SUBLIMAZE) bolus from bag 50 mcg 50 mcg, intravenous, Every 15 min PRN, painful stimuli include turning, bathing, nasotracheal suctioning, physical therapy, dressing changes, and intravenous catheter and invasive line placement., Starting on Mon06/07/22 at 1722, Discontinue when patient extubated. ??, Indications: PainIndications:Pain Bolus from Bag 06/17/2022 6:26 PM CDT 50 mcg Bolus from Bag 06/17/2022 1:41 PM CDT 50 mcg Bolus from Bag 06/17/2022 11:32 AM CDT 50 mcg fentaNYL 2500 mcg/50 mL cassette/syringe (premix) 0-400 mcg/hr (0-8 mL/hr), intravenous, Titrated, Starting on Mon06/07/22 at 1800, CONTINUE current rate if pain control at goal - less than 2 PRN breakthrough pain doses (not painful stimuli doses) in previous 4 hours. INCREASE infusion per titration instructions if 2 or more PRN breakthrough pain doses (not painful stimuli doses) in previous 4 hours until pain score goal reached. DECREASE infusion per titration instructions if pain controlled but oversedated compared to goal. Discontinue when patient extubated., Titration instructions: Titrate, Initial dose: 25 mcg/hr, Titrate: Up/Down, Titrate by: 25 mcg/hr, Every: 30 minutes, Goal: RASS, RASS Goal: -2, -3, Indications: Pain in Intubated PatientsIndications:Pain in Intubated Patients Rate/Dose Verify 06/19/2022 10:00 AM CDT 175 mcg/hr 3.5 mL/hr Rate/Dose Verify 06/19/2022 9:00 AM CDT 175 mcg/hr 3.5 mL/ hr Rate/Dose Verify 06/19/2022 8:00 AM CDT 175 mcg/hr 3.5 mL/ hr fluticasone propionate (FLONASE) 50 mcg/actuation nasal spray 2 spray 2 spray, each nostril, 2 times daily PRN, rhinitis, Starting on 06/05/22 at 1240 furosemide (LASIX) 10 mg/mL injection 120 mg 120 mg, intravenous, Once, On Mon06/05/22 at 1600, For 1 dose, For IV push: administer doses < 160 mg at a rate of 20 -40 mg/min. Doses >/= 160 mg should be administered no faster than 4 mg/min. Room temperature only Given 06/05/2022 3:18 PM CDT 120 mg furosemide (LASIX) tablet 120 mg 120 mg, oral, 2 times daily (for diuretics), First dose on 06/05/22 at 0900 Given 06/05/2022 8:49 AM CDT 120 mg gentamicin (GARAMYCIN) 0.1 % cream topical, Daily, First dose on Mon06/05/22 at 1330, Apply to peritoneal dialysis catheter exit site daily during dressing change. DO NOT SUBSTITUTE WITH OINTMENT., Apply to affected area: dialysis access site, Indications: Infection ProphylaxisIndications:Infection Prophylaxis Given 06/06/2022 11:33 AM CD T gentamicin (GARAMYCIN) 0.1 % cream topical, Daily, First dose on Mon06/06/22 at 1700, Apply to peritoneal dialysis catheter exit site daily during dressing change. DO NOT SUBSTITUTE WITH OINTMENT., Apply to affected area: dialysis access site, Indications: Infection ProphylaxisIndications:Infection Prophylaxis Given 06/06/2022 9:19 PM CDT gentamicin (GARAMYCIN) 0.1 % cream topical, Daily, First dose on Mon06/13/22 at 0900, Apply to peritoneal dialysis catheter exit site daily during dressing change. DO NOT SUBSTITUTE WITH OINTMENT., Apply to affected area: dialysis access site, Indications: Infection ProphylaxisIndications:Infection Prophylaxis Given 06/14/2022 10:13 AM CD T gentamicin (GARAMYCIN) 0.1 % cream topical, Daily, First dose on Mon06/15/22 at 1800, Apply to peritoneal dialysis catheter exit site daily during dressing change. DO NOT SUBSTITUTE WITH OINTMENT., Apply to affected area: dialysis access site, Indications: Infection ProphylaxisIndications:Infection Prophylaxis Given 06/21/2022 8:41 AM CDT Given 06/20/2022 7:59 AM CDT Given 06/19/2022 8:50 AM CDT gentamicin (GARAMYCIN) 0.1 % cream topical, Daily, First dose on Mon06/22/22 at 1245, Apply to peritoneal dialysis catheter exit site daily during dressing change. DO NOT SUBSTITUTE WITH OINTMENT., Apply to affected area: dialysis access site, Indications: Infection ProphylaxisIndications:Infection Prophylaxis Given 06/22/2022 8:30 PM CDT gentamicin (GARAMYCIN) 0.1 % cream topical, Daily, First dose on Mon06/23/22 at 1815, Apply to peritoneal dialysis catheter exit site daily during dressing change. DO NOT SUBSTITUTE WITH OINTMENT., Apply to affected area: dialysis access site, Indications: Infection ProphylaxisIndications:Infection Prophylaxis Given by Other 06/24/2022 7:00 AM CDT Given 06/23/2022 7:49 PM CDT gentamicin (GARAMYCIN) 0.1 % cream topical, Daily, First dose on Mon06/28/22 at 1245, Apply to peritoneal dialysis catheter exit site daily during dressing change. DO NOT SUBSTITUTE WITH OINTMENT., Apply to affected area: dialysis access site, Indications: Infection ProphylaxisIndications:Infection Prophylaxis Given 06/28/2022 8:05 PM SENIOR ART DIRECTOR glucagon injection 1 mg 1 mg, intramuscular, Every 30 min PRN, low blood sugar, blood glucose less than 70 mg/dL AND no IV access AND unable to take PO glucose/juice., Starting on 06/27/22 at 1302, After Glucagon is administered, position patient on [...] 1 mL SWFI. Use immediately following reconstitution. heparin 1,000 unit/mL injection 1.5-6.9 mL 1.5-6.9 mL, intra-catheter, Every 2 hours PRN, prevent clotting in catheter, Starting on 06/07/22 at 1636, Indwell volume of catheter lumens post treatment. Give volume based upon radioactivity technician's recommendation (range 1.5 - 3 mL) in each lumen., Indications: prevent clotting in catheterIndications:prevent clotting in catheter Given 06/11/2022 11:49 AM CDT 2.8 mL Given 06/11/2022 7:06 AM CDT 1.4 mL Given 06/10/2022 10:30 AM CDT 2.8 mL heparin 1,000 unit/mL injection 1.5-6.9 mL 1.5-6.9 mL, intra-catheter, Every 2 hours PRN, prevent clotting in catheter, Starting on 06/13/22 at 1242, Indwell volume of catheter lumens post treatment. Give volume based upon radioactivity technician's recommendation (range 1.5 - 3 mL) in each lumen., Indications: prevent clotting in catheterIndications:prevent clotting in catheter Given 06/15/2022 6:26 AM CDT 2.8 mL heparin 1,000 unit/mL injection 1.5-6.9 mL 1.5-6.9 mL, intra-catheter, Every 2 hours PRN, prevent clotting in catheter, Starting on 06/18/22 at 1239, Indwell volume of catheter lumens post treatment. Give volume based upon radioactivity technician's recommendation (range 1.5 - 3 mL) in each lumen., Indications: prevent clotting in catheterIndications:prevent clotting in catheter Given 06/18/2022 9:41 PM CDT 3 mL heparin 1,000 unit/mL injection 1.5-6.9 mL 1.5-6.9 mL, intra-catheter, Once, On 06/20/22 at 1300, For 1 dose, Indwell volume of catheter lumens post treatment. Give volume based upon radioactivity technician's recommendation (usual range 1.2 - 3 mL) in each lumen., Indications: prevent clotting in catheterIndications:prevent clotting in catheter Given 06/20/2022 12:33 PM CDT 3 mL heparin 1,000 unit/mL injection 3,000 Units 3,000 Units, intravenous, Every 6 hours PRN, PTT less than 40 seconds, Starting on 06/05/22 at 0242, Subsequent bolus during heparin infusion., Indications: Acute Coronary SyndromeIndications:Acute Coronary Syndrome Given 06/05/2022 9:00 PM CDT 3,000 Units Given 06/05/2022 1:24 PM CDT 3,000 Units heparin 1,000 unit/mL injection 4,000 Units 4,000 Units, intravenous, Once, On 06/05/22 at 0330, For 1 dose, Initial bolus prior to starting heparin infusion. Do not adjust initial bolus based on patient PTT., Indications: Acute Coronary SyndromeIndications:Acute Coronary Syndrome Given 06/05/2022 4:24 AM CDT 4,000 Units heparin 1,000 unit/mL injection syringe 0-2,000 Units/hr (0-2 mL/hr), dialysis circuit, Continuous, Starting on 06/11/22 at 1345, Start 1000 units/hour. Adjust infusion based upon nomogram: PTT < 41 seconds - Increase infusion rate by 200 units/hour (0.2 mL/hr) PTT 41-60 seconds - Increase infusion rate by 100 units/hour (0.1 mL/hr) PTT 61-80 seconds - No change PTT 81-90 seconds - Decrease infusion rate by 100 units/hr (0.1 mL/hr) PTT 91-100 seconds - Stop infusion for 30 minutes, then decrease infusion rate by 200 units/hour (0.2 mL/hr) PTT greater than 100 seconds - Stop infusion for 1 hour, then decrease infusion rate by 300 units/hr (0.3 mL/hr) If two consecutive PTTs greater than 100, stop infusion and call ICU physician. , Indications: Other (complete free text reason below), Prevent clotting during CRRTIndications:Other (complete free text reason below),Prevent clotting during CRRT Rate/Dose Verify 06/13/2022 7:00 AM CDT 1,100 Units/hr 1.1 mL/hr Rate/Dose Verify 06/13/2022 6:00 AM CDT 1,100 Units/hr 1.1 mL/hr Rate/Dose Verify 06/13/2022 5:00 AM CDT 1,100 Units/hr 1.1 mL/hr heparin 25 Units/mL in dextrose 5% 500 mL Impella purge fluid 0-30 mL/hr, to machine, Continuous, Starting on Mon06/07/22 at 2000, RN to record infusion rate as pump automatically adjusts to maintain pressures and flow with the motor., Indications: Impella Purge SolutionIndications:Impella Purge Solution Rate/Dose Verify 06/10/2022 11:00 AM CDT 15.4 mL/hr 15.4 mL/hr Rate/Dose Verify 06/10/2022 10:00 AM CDT 15.4 mL/hr 15.4 m L/hr Rate/Dose Verify 06/10/2022 9:00 AM CDT 15.4 mL/hr 15.4 mL /hr heparin 5,000 unit/mL injection 5,000 Units 5,000 Units, subcutaneous, Every 8 hours scheduled, First dose on Mon06/22/22 at 1400, Indications: Deep Vein Thrombosis PreventionIndications:Deep Vein Thrombosis Prevention Given 06/29/2022 12:34 PM SENIOR ART DIRECTOR 5,000 Units Left Lower Abdomen Given 06/29/2022 5:01 AM SENIOR ART DIRECTOR 5,000 Units L eft Lower Abdomen Given 06/28/2022 9:00 PM SENIOR ART DIRECTOR 5,000 Units L eft Upper Abdomen heparin 5,000 unit/mL injection 7,500 Units 7,500 Units, subcutaneous, Every 8 hours scheduled, First dose on 06/04/22 at 2230, Indications: Deep Vein Thrombosis PreventionIndication s:Deep Vein Thrombosis Prevention Given 06/04/2022 11:36 PM CDT 7,500 Units Right Lower Abdomen heparin in 0.9% sodium chloride 25,000 unit/250 mL infusion (premix) 0-33 Units/kg/hr ? 142 kg (0-46.86 mL/hr), intravenous, Titrated, Starting on Mon06/05/22 at 0330, WEIGHT-BASED HEPARIN INFUSION Initial rate:: 7 Units/kg/hr. Max initial rate 1,000 units/hr. Adjust infusion based upon nomogram: PTT less than 40 seconds: Bolus if ordered (see PRN bolus order) , then increase infusion rate 3 units/kg/hour PTT 40 - 50.9 seconds: Bolus if ordered (see PRN bolus order), then increase infusion rate 2 units/kg/hour PTT 51 - 59.9 seconds: No bolus, increase infusion rate 1 unit/kg/hour PTT 60 - 94.9 seconds: No change PTT 95 - 104.9 seconds: No bolus, decrease infusion rate 1 unit/kg/hour PTT 105 - 114.9 seconds: Hold infusion for 30 minutes, then decrease infusion rate 2 units/kg/hour PTT 115 or greater seconds: Hold infusion for 1 hour, then decrease infusion rate 3 units/kg/hour Draw STAT PTT 6 hrs after initiation of heparin infusion, draw STAT PTT 6 hours after each dose/rate change, and every 6 hours until 2 consecutive PTTs are within therapeutic range. Once two consecutive PTT's are therapeutic (60-94.9 seconds), then draw PTT every AM until heparin is discontinued., Indications: Acute Coronary SyndromeIndications: Acute Coronary Syndrome Rate/Dose Verify 06/10/2022 10:00 AM CDT 9 Units/kg/hr 12.78 mL/hr Rate/Dose Verify 06/10/2022 9:00 AM CDT 9 Units/kg/hr 12.7 8 mL/hr Rate/Dose Verify 06/10/2022 8:00 AM CDT 9 Units/kg/hr 12.7 8 mL/hr heparin in 0.9% sodium chloride 25,000 unit/250 mL infusion (premix) 0-33 Units/kg/hr ? 131.9 kg (0-43.527 mL/hr, rounded to 0-43.53 mL/hr), intravenous, Titrated, Starting on Mon06/13/22 at 0715, WEIGHT-BASED HEPARIN INFUSION Initial rate:: 7.5 Units/kg/hr. Max initial rate 1,000 units/hr. Adjust infusion based upon nomogram: PTT less than 40 seconds: Bolus if ordered (see PRN bolus order) , then increase infusion rate 3 units/kg/hour PTT 40 - 50.9 seconds: Bolus if ordered (see PRN bolus order), then increase infusion rate 2 units/kg/hour PTT 51 - 59.9 seconds: No bolus, increase infusion rate 1 unit/kg/hour PTT 60 - 94.9 seconds: No change PTT 95 - 104.9 seconds: No bolus, decrease infusion rate 1 unit/kg/hour PTT 105 - 114.9 seconds: Hold infusion for 30 minutes, then decrease infusion rate 2 units/kg/hour PTT 115 or greater seconds: Hold infusion for 1 hour, then decrease infusion rate 3 units/kg/hour Draw STAT PTT 6 hrs after initiation of heparin infusion, draw STAT PTT 6 hours after each dose/rate change, and every 6 hours until 2 consecutive PTTs are within therapeutic range. Once two consecutive PTT's are therapeutic (60-94.9 seconds), then draw PTT every AM until heparin is discontinued., Indications: atrial fibrillation, On hold since 06/20/2022 at 0016 until manually unheldIndications:atrial fibrillation Rate/Dose Verify 06/20/2022 12:00 AM CDT 14 Units/kg/hr 18.47 mL/hr Rate/Dose Change 06/19/2022 11:00 PM CDT 14 Units/kg/hr 18 .47 mL/hr Rate/Dose Verify 06/19/2022 10:00 PM CDT 10.5 Units/kg/hr 13.85 mL/hr hydrALAZINE (APRESOLINE) tablet 100 mg 100 mg, oral, 3 times daily, First dose on 06/06/22 at 0900, Indications: hypertensionIndications:hypertension Given 06/07/2022 8:01 AM CDT 100 mg Given 06/06/2022 8:19 PM CDT 100 mg Given 06/06/2022 4:51 PM CDT 100 mg influenza quadrivalent [id number] (FLULAVAL,FLUARIX,FLUZONE) 60 mcg (15 mcg x 4)/0.5 mL vaccine (STANDARD age 6 months and up) 0.5 mL 0.5 mL, intramuscular, During hospitalization, immunization, Starting on 06/04/22 at 2317, For 1 dose, Indications: influenza vaccinationIndications:influe nza vaccination Given 06/04/2022 11:36 PM CDT 0.5 mL Right Deltoid insulin glargine (LANTUS, SEMGLEE) 100 unit/mL injection 30 Units 30 Units, subcutaneous, Every morning, First dose (after last modification) on 06/18/22 at 1330, Do not hold if NPO. Do not mix with other insulins, Indications: Diabetes MellitusIndications:Diabetes Mellitus Given 06/18/2022 1:38 PM CDT 30 Units Left Lower Abdomen insulin glargine (LANTUS, SEMGLEE) 100 unit/mL injection 33 Units 33 Units, subcutaneous, Every morning, First dose on 06/05/22 at 0900, Do not hold if NPO. Do not mix with other insulins, Indications: Diabetes MellitusIndications:Diabetes Mellitus Given 06/07/2022 8:03 AM CDT 33 Units Left Lower Abdomen Given 06/06/2022 8:19 AM CDT 33 Units Le ft Upper Arm Given 06/05/2022 8:49 AM CDT 33 Units Le ft Lower Abdomen insulin glargine (LANTUS, SEMGLEE) 100 unit/mL injection 33 Units 33 Units, subcutaneous, Every morning, First dose (after last modification) on Mon06/08/22 at 0500, Do not hold if NPO. Do not mix with other insulins, Indications: Diabetes MellitusIndications:Diabetes Mellitus Given 06/16/2022 8:24 AM CDT 33 Units Left Lower Abdomen Given 06/15/2022 9:41 AM CDT 33 Units Le ft Lower Abdomen Given 06/14/2022 8:55 AM CDT 33 Units Le ft Lower Abdomen insulin glargine (LANTUS, SEMGLEE) 100 unit/mL injection 33 Units 33 Units, subcutaneous, Every morning, First dose (after last modification) on 06/19/22 at 0915, Do not hold if NPO. Do not mix with other insulins, Indications: Diabetes MellitusIndications:Diabetes Mellitus Given 06/23/2022 9:01 AM CDT 33 Units Left Lower Abdomen Given 06/22/2022 8:04 AM CDT 33 Units Le ft Upper Arm Given 06/21/2022 8:40 AM CDT 33 Units Le ft Lower Abdomen insulin glargine (LANTUS, SEMGLEE) 100 unit/mL injection 33 Units 33 Units, subcutaneous, Every morning, First dose (after last modification) on Mon06/24/22 at 0900, Do not hold if NPO. Do not mix with other insulins, Indications: Diabetes MellitusIndications:Diabetes Mellitus Given 06/26/2022 9:15 AM SENIOR ART DIRECTOR 33 Units Right Upper Arm Given 06/25/2022 9:22 AM CDT 33 Units Ri ght Upper Arm Given 06/24/2022 9:57 AM CDT 33 Units Le ft Upper Arm insulin glargine (LANTUS, SEMGLEE) 100 unit/mL injection 35 Units 35 Units, subcutaneous, Every morning, First dose (after last modification) on 06/27/22 at 0900, Do not hold if NPO. Do not mix with other insulins, Indications: Diabetes MellitusIndications:Diabetes Mellitus Given 06/27/2022 8:18 AM SENIOR ART DIRECTOR 35 Units Right Upper Arm insulin lispro (HumaLOG, ADMELOG) 100 unit/mL injection 0-10 Units 0-10 Units, subcutaneous, 3 times daily with meals, First dose on Mon06/05/22 at 0800, Blood glucose mg/dL: 149 or [...] NPO Status, Indications: Diabetes MellitusIndications:Diabetes Mellitus Given 06/07/2022 8:02 AM CDT 4 Units Left Lower Abdomen Given 06/05/2022 5:23 PM CDT 6 Units Le ft Lower Abdomen Given 06/05/2022 6:58 AM CDT 10 Units Le ft Upper Arm insulin lispro (HumaLOG, ADMELOG) 100 unit/mL injection 0-10 Units 0-10 Units, subcutaneous, Every 4 hours scheduled, First dose on Mon06/08/22 at 0500, Blood glucose mg/dL: 149 or less: No [...] NPO Status, Indications: Diabetes MellitusIndications:Diabetes Mellitus Given 06/16/2022 8:24 AM CDT 10 Units Left Upper Arm Given 06/16/2022 4:59 AM CDT 10 Units Ri ght Lower Abdomen Given 06/16/2022 12:09 AM CDT 4 Units R ight Upper Arm insulin lispro (HumaLOG, ADMELOG) 100 unit/mL injection 0-10 Units 0-10 Units, subcutaneous, Every 4 hours scheduled, First dose on [place] 06/16/22 at 1315, Blood glucose mg/dL: 149 or less: No [...] NPO Status, Indications: Diabetes MellitusIndications:Diabetes Mellitus Given 06/21/2022 12:04 PM CDT 2 Units Left Upper Abdomen Given 06/21/2022 8:39 AM CDT 2 Units Le ft Lower Abdomen Given 06/21/2022 5:31 AM CDT 6 Units Le ft Lower Abdomen insulin lispro (HumaLOG, ADMELOG) 100 unit/mL injection 0-10 Units 0-10 Units, subcutaneous, 3 times daily with meals, First dose on Mon06/21/22 at 1800, Blood glucose mg/dL: 149 or [...] NPO Status, Indications: Diabetes MellitusIndications:Diabetes Mellitus Given 06/27/2022 12:08 PM SENIOR ART DIRECTOR 4 Units Left Lower Abdomen Given 06/27/2022 8:20 AM SENIOR ART DIRECTOR 8 Units Ri ght Upper Arm Given 06/26/2022 2:14 PM SENIOR ART DIRECTOR 4 Units Ri ght Upper Arm insulin lispro (HumaLOG, ADMELOG) 100 unit/mL injection 0-5 Units 0-5 Units, subcutaneous, Nightly, First dose on Mon06/21/22 at 2100, Blood glucose mg/dL: 149 or less: No insulin 150-199: add 1 unit 200-249: add 2 units 250-299: add 3 units 300-349: add 4 units and notify physician for adjustment of insulin orders. 350-399: add 5 units and notify physician for adjustment of insulin orders. Over 400: Notify physician for adjustment of insulin orders. Do NOT hold for NPO Status, Indications: Diabetes MellitusIndications:Diabetes Mellitus Given 06/26/2022 10:00 PM SENIOR ART DIRECTOR 1 Units Righ t Upper Arm Given 06/25/2022 9:41 PM CDT 3 Units Le ft Upper Arm Given 06/24/2022 9:02 PM CDT 2 Units Le ft Upper Arm insulin lispro (HumaLOG, ADMELOG) 100 unit/mL injection 0-5 Units 0-5 Units, subcutaneous, Daily, First dose on Mon06/22/22 at 0930, Blood glucose mg/dL: 149 or less: No insulin 150-199: add 1 unit 200-249: add 2 units 250-299: add 3 units 300-349: add 4 units and notify physician for adjustment of insulin orders. 350-399: add 5 units and notify physician for adjustment of insulin orders. Over 400: Notify physician for adjustment of insulin orders. Do NOT hold for NPO Status Given 06/27/2022 2:00 AM SENIOR ART DIRECTOR 3 Units Left Upper Arm Given 06/26/2022 1:38 AM CDT 4 Units Le ft Upper Arm Given 06/25/2022 1:44 AM CDT 3 Units Ri ght Lower Abdomen insulin lispro (HumaLOG, ADMELOG) 100 unit/mL injection 10 Units 10 Units, subcutaneous, Every 4 hours, First dose (after last modification) on [place] 06/16/22 at 1300 Given 06/16/2022 1:27 PM CDT 10 Units L eft Upper Arm insulin lispro (HumaLOG, ADMELOG) 100 unit/mL injection 10 Units 10 Units, subcutaneous, 3 times daily with meals, First dose (after last modification) on Mon06/22/22 at 1200, Post-meal if he takes at least 25g of carbs or eats at least 50% of meal Given 06/23/2022 12:41 PM CDT 10 Units Left Upper Arm Given 06/23/2022 9:00 AM CDT 10 Units Ri ght Lower Abdomen Given 06/22/2022 12:45 PM CDT 10 Units L eft Upper Arm insulin lispro (HumaLOG, ADMELOG) 100 unit/mL injection 10 Units 10 Units, subcutaneous, 3 times daily with meals, First dose (after last modification) on [place] 06/26/22 at 1300, Post-meal if he takes at least 25g of carbs or eats at least 50% of meal Given 06/27/2022 12:07 PM SENIOR ART DIRECTOR 10 Units Left Lower Abdomen Given 06/27/2022 8:18 AM SENIOR ART DIRECTOR 10 Units Ri ght Upper Arm Given 06/26/2022 6:59 PM SENIOR ART DIRECTOR 10 Units Le ft Upper Arm insulin lispro (HumaLOG, ADMELOG) 100 unit/mL injection 2 Units 2 Units, subcutaneous, Every 4 hours, First dose on 06/11/22 at 1145 Given 06/12/2022 4:58 AM CDT 2 Units L eft Upper Abdomen Given 06/11/2022 11:32 PM CDT 2 Units L eft Lower Abdomen Given 06/11/2022 8:01 PM CDT 2 Units Le ft Forearm insulin lispro (HumaLOG, ADMELOG) 100 unit/mL injection 2 Units 2 Units, subcutaneous, Once, On 06/26/22 at 0945, For 1 dose, 2 additional units for total a of 20 units this AM., Indications: HyperglycemiaIndications:Hype rglycemia Given 06/26/2022 9:15 AM SENIOR ART DIRECTOR 2 Units Right Upper Arm insulin lispro (HumaLOG, ADMELOG) 100 unit/mL injection 3 Units 3 Units (rounded from 2.84 Units = 0.02 Units/kg ? 142 kg), subcutaneous, 3 times daily with meals, First dose on Mon06/05/22 at 1230, If BG greater than or equal to [...] 70 mg/dL., Indications: Diabetes MellitusIndications:Diabetes Mellitus Given 06/05/2022 5:23 PM CDT 3 Units Left Lower Abdomen insulin lispro (HumaLOG, ADMELOG) 100 unit/mL injection 4 Units 4 Units, subcutaneous, 3 times daily with meals, First dose on Mon06/21/22 at 1800, Post-meal if he takes at least 25g of carbs or eats at least 50% of meal Given 06/22/2022 8:04 AM CDT 4 Units Left Upper Arm insulin lispro (HumaLOG, ADMELOG) 100 unit/mL injection 4 Units 4 Units, subcutaneous, Once as needed, other, insulin pump not functional, Starting on 06/27/22 at 1302, For 1 dose, Administer back up dose if insulin pump is not functional. Call MD for alternate insulin regimen., Indications: Diabetes MellitusIndications:Diabetes Mellitus insulin lispro (HumaLOG, ADMELOG) 100 unit/mL injection 5 Units 5 Units, subcutaneous, Every 4 hours, First dose (after last modification) on 06/12/22 at 0915 Given 06/14/2022 8:54 AM CDT 5 Units Left Lower Abdomen Given 06/14/2022 4:25 AM CDT 5 Units Le ft Upper Arm Given 06/13/2022 11:42 PM CDT 5 Units L eft Upper Arm insulin lispro (HumaLOG, ADMELOG) 100 unit/mL injection 5 Units 5 Units, subcutaneous, Every 4 hours, First dose (after last modification) on [place]06/14/22 at 1200 Given 06/15/2022 3:31 PM CDT 5 Units Left Upper Arm Given 06/15/2022 11:59 AM CDT 5 Units L eft Upper Arm Given 06/15/2022 9:44 AM CDT 5 Units Le ft Upper Arm insulin lispro (HumaLOG, ADMELOG) 100 unit/mL injection 5 Units 5 Units, subcutaneous, Every 4 hours, First dose (after last modification) on 06/18/22 at 1715 Given 06/19/2022 1:12 AM CDT 5 Units L eft Upper Abdomen Given 06/18/2022 7:56 PM CDT 5 Units Le ft Upper Arm insulin lispro (HumaLOG, ADMELOG) 100 unit/mL injection 5 Units 5 Units, subcutaneous, Once, On Mon06/22/22 at 0645, For 1 dose, Indications: HyperglycemiaIndications:Hype rglycemia Given 06/22/2022 6:22 AM CDT 5 Units Left Lower Abdomen insulin lispro (HumaLOG, ADMELOG) 100 unit/mL injection 5 Units 5 Units, subcutaneous, Once, On Mon06/24/22 at 0215, For 1 dose, Indications: HyperglycemiaIndications:Hype rglycemia Given 06/24/2022 1:57 AM CDT 5 Units Right Upper Arm insulin lispro (HumaLOG, ADMELOG) 100 unit/mL injection 6 Units 6 Units (rounded from 5.68 Units = 0.04 Units/kg ? 142 kg), subcutaneous, 3 times daily, First dose on Mon06/05/22 at 2000, To be given at the initiation of peritoneal dialysis and every four hours after until dialysis is complete. If not receiving dialysis, hold these doses. HOLD if BG < 100, Indications: Diabetes MellitusIndications:Diabetes Mellitus Given 06/07/2022 4:17 AM CDT 6 Units Left Upper Arm Given 06/06/2022 11:52 PM CDT 6 Units L eft Upper Arm Given 06/06/2022 8:20 PM CDT 6 Units Le ft Lower Abdomen insulin lispro (HumaLOG, ADMELOG) 100 unit/mL injection 6 Units 6 Units, subcutaneous, Every 4 hours, First dose (after last modification) on Mon06/19/22 at 0915 Given 06/21/2022 12:00 PM CDT 6 Units Left Lower Abdomen Given 06/21/2022 8:39 AM CDT 6 Units Le ft Lower Abdomen Given 06/21/2022 5:31 AM CDT 6 Units Ri ght Upper Arm insulin lispro (HumaLOG, ADMELOG) 100 unit/mL injection 7 Units 7 Units, subcutaneous, Every 4 hours, First dose (after last modification) on Mon06/15/22 at 2000 Given 06/16/2022 8:24 AM CDT 7 Units Left Upper Arm Given 06/16/2022 4:58 AM CDT 7 Units Ri ght Lower Abdomen Given 06/16/2022 12:08 AM CDT 7 Units R ight Upper Arm insulin lispro (HumaLOG, ADMELOG) 100 unit/mL injection 8 Units 8 Units, subcutaneous, 3 times daily with meals, First dose (after last modification) on Mon06/24/22 at 1200, Post-meal if he takes at least 25g of carbs or eats at least 50% of meal Given 06/26/2022 9:15 AM SENIOR ART DIRECTOR 8 Units Right Upper Arm Given 06/25/2022 1:24 PM CDT 8 Units Ri ght Upper Arm Given 06/25/2022 8:54 AM CDT 8 Units Ri ght Upper Arm insulin lispro (HumaLOG, ADMELOG) 100 unit/mL injection 9 Units 9 Units, subcutaneous, 3 times daily with meals, First dose (after last modification) on Mon06/06/22 at 1800, If BG greater than or equal to [...] 70 mg/dL., Indications: Diabetes MellitusIndications:Diabetes Mellitus Given 06/07/2022 8:03 AM CDT 9 Units Left Lower Abdomen Given 06/06/2022 6:05 PM CDT 9 Units Ri ght Upper Arm insulin NPH (HumuLIN N, NovoLIN N) 100 unit/mL injection 15 Units 15 Units, subcutaneous, Nightly, First dose (after last reorder) on Mon06/21/22 at 2100, To be given at the start of peritoneal dialysis, Indications: Diabetes MellitusIndications:Diabetes Mellitus Given 06/21/2022 9:56 PM CDT 15 Units Left Lower Abdomen insulin NPH (HumuLIN N, NovoLIN N) 100 unit/mL injection 20 Units 20 Units, subcutaneous, Nightly, First dose (after last modification) on Mon06/22/22 at 2100, To be given at the start of peritoneal dialysis, Indications: Diabetes MellitusIndications:Diabetes Mellitus Given 06/22/2022 9:21 PM CDT 20 Units Left Lower Abdomen insulin NPH (HumuLIN N, NovoLIN N) 100 unit/mL injection 30 Units 30 Units, subcutaneous, Nightly, First dose (after last modification) on Mon06/23/22 at 2100, To be given at the start of peritoneal dialysis, Indications: Diabetes MellitusIndications:Diabetes Mellitus Given 06/23/2022 9:23 PM CDT 30 Units Left Upper Abdomen insulin NPH (HumuLIN N, NovoLIN N) 100 unit/mL injection 35 Units 35 Units, subcutaneous, Nightly, First dose (after last modification) on Mon06/24/22 at 2100, To be given at the start of peritoneal dialysis, Indications: Diabetes MellitusIndications:Diabetes Mellitus Given 06/25/2022 9:42 PM CDT 35 Units Right Upper Arm Given 06/24/2022 9:01 PM CDT 35 Units Le ft Lower Abdomen insulin NPH (HumuLIN N, NovoLIN N) 100 unit/mL injection 40 Units 40 Units, subcutaneous, Nightly, First dose (after last modification) on Mon06/26/22 at 2100, To be given at the start of peritoneal dialysis, Indications: Diabetes MellitusIndications:Diabet es Mellitus Given 06/26/2022 10:00 PM SENIOR ART DIRECTOR 40 Units Right Upper Arm insulin regular (HumuLIN R, NovoLIN R) 100 unit/mL injection 4 Units 4 Units, intravenous, Once, On Mon06/05/22 at 1045, For 1 dose, Indications: HyperglycemiaIndications:H yperglycemia Given 06/05/2022 10:32 AM CDT 4 Units insulin regular (HumuLIN R, NovoLIN R) 100 unit/mL injection 4 Units 4 Units, intravenous, Once, On Mon06/16/22 at 1215, For 1 dose, Indications: HyperglycemiaIndications:H yperglycemia Given 06/16/2022 12:04 PM CDT 4 Units insulin regular (HumuLIN R, NovoLIN R) 100 unit/mL injection 5 Units 5 Units, intravenous, Once, On Mon06/07/22 at 1830, For 1 dose, Indications: HyperglycemiaIndications:H yperglycemia Given 06/07/2022 5:57 PM CDT 5 Units insulin regular (HumuLIN R, NovoLIN R) 100 unit/mL injection 6 Units 6 Units, intravenous, Once, On Mon06/05/22 at 1515, For 1 dose, Indications: HyperglycemiaIndications:H yperglycemia Given 06/05/2022 2:34 PM CDT 6 Units insulin regular (HumuLIN R, NovoLIN R) 100 unit/mL injection 7 Units 7 Units, intravenous, Once, On Mon06/07/22 at 2045, For 1 dose, Indications: HyperglycemiaIndications:H yperglycemia Given 06/07/2022 8:14 PM CDT 7 Units insulin regular bolus from bag 4-10 Units 4-10 Units, intravenous, As needed, high blood glucose, Starting on [place] 06/16/22 at 1808, INITIATE INFUSION: Blood Glucose (mg/dL) 181 - 220: Give 4 units IV bolus and start infusion 1 unit/hour 221 - 280: Give 4 units IV bolus and start infusion 2 units/hour 281 - 330: Give 6 units IV bolus and start infusion 2 units/hour 331 - 380: Give 8 units IV bolus and start infusion 3 units/hour 381 - 430: Give 10 units IV bolus and start infusion 3 units/hour Greater than 430: Call MD for orders Use the instructions above if the insulin infusion needs to be restarted., Indications: HyperglycemiaIndications:H yperglycemia Bolus from Bag 06/18/2022 5:16 AM CDT 4 Units Bolus from Bag 06/17/2022 6:30 AM CDT 4 Units insulin regular bolus from bag 4-6 Units 4-6 Units, intravenous, Every 1 hour PRN, high blood sugar per infusion instructions, Starting on Mon06/07/22 at 1952, Administer additional IV bolus doses as directed in insulin infusion order., Indications: HyperglycemiaIndications:Hy perglycemia Bolus from Bag 06/07/2022 8:58 PM CDT 6 Units insulin regular bolus from bag 4-6 Units 4-6 Units, intravenous, Every 1 hour PRN, high blood sugar per infusion instructions, Starting on [place] 06/16/22 at 1644, Administer additional IV bolus doses as directed in insulin infusion order., Indications: HyperglycemiaIndications:Hy perglycemia Bolus from Bag 06/16/2022 6:07 PM CDT 6 Units insulin regular in 0.9% sodium chloride (MYXREDLIN) 100 unit/100 mL (1 unit/mL) infusion (premix) 7 Units/hr (7 mL/hr), 1 units/mL, intravenous, Titrated, Starting on Mon06/07/22 at 2030, Until Mon06/08/22 at 0012, Indications: Hyperglycemia, NON-WEIGHT BASED DOSING Blood Glucose (BG) - BG DECREASED OR SAME as last value: Less than 70 mg/dL - Stop insulin infusion *(see below for drip reinitiation instructions). Follow hypoglycemia orders. Notify covering MD. 70 - 100 mg/dL - Stop infusion *(see below for drip reinitiation instructions). Resume BG Q 1 hour. 101 - 160 mg/dL - If BG decreased by greater than or equal to 40 mg/dL, decrease infusion by 50% or stop infusion if less than or equal to 2 units/hour *(see below for drip reinitiation instructions). Resume BG Q 1 hour. If BG decreased less than 40 mg/dL, continue same rate. 161 - 200 mg/dL- If BG decreased by greater than or equal to 60 mg/dL, decrease infusion by 50% or stop infusion if less than or equal to 2 units/hour *(see below for drip reinitiation instructions). Resume BG Q 1 hour. If BG decreased less than 60 mg/dL, continue same rate. 201 - 250 mg/dl - If BG decreased by greater than or equal to 60 mg/dL continue same rate. If decreased by less than 60 mg/dL, increase by 1 unit/hr. 251 - 300 mg/dL - Increase by 2 units/hour. 301 - 349 mg/dL - Increase by 2 units/hour. 350 - 400 mg/dL - Increase by 3 units/hr. Greater than 400 mg/dL - Notify covering MD Blood Glucose (BG) - Blood glucose INCREASED since last value: 70 - 100 mg/dL - Continue to hold infusion 101 - 160 mg/dL - Maintain at present rate or if drip has been off, follow reinitiation instructions* 161 - 200 mg/dL- Increase by or restart at 1 unit/hour or if drip has been off, follow reinitiation instructions* 201 - 250 mg/dL- Give 4 units insulin IVP then increase infusion by 2 units/hour or if drip has been off, follow reinitiation instructions* 251 - 300 mg/dL - Give 4 units insulin IVP then increase infusion by 2 units/hour or if drip has been off, follow reinitiation instructions* 301 - 349 mg/dL - Give 6 units insulin IVP then increase infusion by 3 units/hour or if drip has been off, follow reinitiation instructions* 350 - 400 mg/dL - Give 6 units insulin IVP then increase infusion by 3 units/hour or if drip has been off, follow reinitiation instructions* Greater than 400 mg/dL - Notify covering MD. *Drip Reinitiation Instructions: Check BG Q 1 hour; when BG greater than 100 mg/dL, restart infusion at 50% of the most recent rate. If the most recent rate less than 2 units/hr, contact covering provider for reinitiation or transition plan. Patients with renal failure (CrCl less than 40 mL/min, urine output less than 30 mL/hr, or receiving dialysis) limit infusion rate increases to be NO SOONER THAN EVERY 3 HOURS. Patients with type 1 diabetes or equivalent: Do not discontinue drip until insulin maintenance regimen is implemented. Notify the provider when stopping the infusion. When new IV tubing is used, completely prime the tubing. Once primed, waste an additional 20 ml of insulin infusion using the IV pump prior to connecting to patient., RoutineIndications:Hypergly cemia Rate/Dose Verify 06/08/2022 12:00 AM CDT 10 Units/hr 10 mL/hr Rate/Dose Verify 06/07/2022 11:00 PM CDT 10 Units/hr 10 mL /hr Rate/Dose Verify 06/07/2022 10:00 PM CDT 10 Units/hr 10 mL /hr insulin regular in 0.9% sodium chloride (MYXREDLIN) 100 unit/100 mL (1 unit/mL) infusion (premix) 0-30 Units/hr (0-30 mL/hr), 1 units/mL, intravenous, Titrated, Starting on Mon06/08/22 at 0045, Until Mon06/08/22 at 0424, Indications: Hyperglycemia, NON-WEIGHT BASED DOSING Blood Glucose (BG) - BG DECREASED OR SAME as last value: Less than 70 mg/dL - Stop insulin infusion *(see below for drip reinitiation instructions). Follow hypoglycemia orders. Notify covering MD. 70 - 100 mg/dL - Stop infusion *(see below for drip reinitiation instructions). Resume BG Q 1 hour. 101 - 160 mg/dL - If BG decreased by greater than or equal to 40 mg/dL, decrease infusion by 50% or stop infusion if less than or equal to 2 units/hour *(see below for drip reinitiation instructions). Resume BG Q 1 hour. If BG decreased less than 40 mg/dL, continue same rate. 161 - 200 mg/dL- If BG decreased by greater than or equal to 60 mg/dL, decrease infusion by 50% or stop infusion if less than or equal to 2 units/hour *(see below for drip reinitiation instructions). Resume BG Q 1 hour. If BG decreased less than 60 mg/dL, continue same rate. 201 - 250 mg/dl - If BG decreased by greater than or equal to 60 mg/dL continue same rate. If decreased by less than 60 mg/dL, increase by 1 unit/hr. 251 - 300 mg/dL - Increase by 2 units/hour. 301 - 349 mg/dL - Increase by 2 units/hour. 350 - 400 mg/dL - Increase by 3 units/hr. Greater than 400 mg/dL - Notify covering MD Blood Glucose (BG) - Blood glucose INCREASED since last value: 70 - 100 mg/dL - Continue to hold infusion 101 - 160 mg/dL - Maintain at present rate or if drip has been off, follow reinitiation instructions* 161 - 200 mg/dL- Increase by or restart at 1 unit/hour or if drip has been off, follow reinitiation instructions* 201 - 250 mg/dL- Give 4 units insulin IVP then increase infusion by 2 units/hour or if drip has been off, follow reinitiation instructions* 251 - 300 mg/dL - Give 4 units insulin IVP then increase infusion by 2 units/hour or if drip has been off, follow reinitiation instructions* 301 - 349 mg/dL - Give 6 units insulin IVP then increase infusion by 3 units/hour or if drip has been off, follow reinitiation instructions* 350 - 400 mg/dL - Give 6 units insulin IVP then increase infusion by 3 units/hour or if drip has been off, follow reinitiation instructions* Greater than 400 mg/dL - Notify covering MD. *Drip Reinitiation Instructions: Check BG Q 1 hour; when BG greater than 100 mg/dL, restart infusion at 50% of the most recent rate. If the most recent rate less than 2 units/hr, contact covering provider for reinitiation or transition plan. Patients with renal failure (CrCl less than 40 mL/min, urine output less than 30 mL/hr, or receiving dialysis) limit infusion rate increases to be NO SOONER THAN EVERY 3 HOURS. Patients with type 1 diabetes or equivalent: Do not discontinue drip until insulin maintenance regimen is implemented. Notify the provider when stopping the infusion. When new IV tubing is used, completely prime the tubing. Once primed, waste an additional 20 ml of insulin infusion using the IV pump prior to connecting to patient., RoutineIndications:Hyperglyc emia Rate/Dose Change 06/08/2022 4:10 AM CDT 8 Units/hr 8 mL/hr Rate/Dose Verify 06/08/2022 4:00 AM CDT 10 Units/hr 10 mL/ hr Rate/Dose Verify 06/08/2022 3:00 AM CDT 10 Units/hr 10 mL/ hr insulin regular in 0.9% sodium chloride (MYXREDLIN) 100 unit/100 mL (1 unit/mL) infusion (premix) 2 Units/hr (2 mL/hr), 1 units/mL, intravenous, Titrated, Starting on [place] 06/16/22 at 1730, Until [place] 06/16/22 at 1809, Indications: Hyperglycemia, NON-WEIGHT BASED DOSING Blood Glucose (BG) - BG DECREASED OR SAME as last value: Less than 70 mg/dL - Stop insulin infusion *(see below for drip reinitiation instructions). Follow hypoglycemia orders. Notify covering MD. 70 - 100 mg/dL - Stop infusion *(see below for drip reinitiation instructions). Resume BG Q 1 hour. 101 - 160 mg/dL - If BG decreased by greater than or equal to 40 mg/dL, decrease infusion by 50% or stop infusion if less than or equal to 2 units/hour *(see below for drip reinitiation instructions). Resume BG Q 1 hour. If BG decreased less than 40 mg/dL, continue same rate. 161 - 200 mg/dL- If BG decreased by greater than or equal to 60 mg/dL, decrease infusion by 50% or stop infusion if less than or equal to 2 units/hour *(see below for drip reinitiation instructions). Resume BG Q 1 hour. If BG decreased less than 60 mg/dL, continue same rate. 201 - 250 mg/dl - If BG decreased by greater than or equal to 60 mg/dL continue same rate. If decreased by less than 60 mg/dL, increase by 1 unit/hr. 251 - 300 mg/dL - Increase by 2 units/hour. 301 - 349 mg/dL - Increase by 2 units/hour. 350 - 400 mg/dL - Increase by 3 units/hr. Greater than 400 mg/dL - Notify covering MD Blood Glucose (BG) - Blood glucose INCREASED since last value: 70 - 100 mg/dL - Continue to hold infusion 101 - 160 mg/dL - Maintain at present rate or if drip has been off, follow reinitiation instructions* 161 - 200 mg/dL- Increase by or restart at 1 unit/hour or if drip has been off, follow reinitiation instructions* 201 - 250 mg/dL- Give 4 units insulin IVP then increase infusion by 2 units/hour or if drip has been off, follow reinitiation instructions* 251 - 300 mg/dL - Give 4 units insulin IVP then increase infusion by 2 units/hour or if drip has been off, follow reinitiation instructions* 301 - 349 mg/dL - Give 6 units insulin IVP then increase infusion by 3 units/hour or if drip has been off, follow reinitiation instructions* 350 - 400 mg/dL - Give 6 units insulin IVP then increase infusion by 3 units/hour or if drip has been off, follow reinitiation instructions* Greater than 400 mg/dL - Notify covering MD. *Drip Reinitiation Instructions: Check BG Q 1 hour; when BG greater than 100 mg/dL, restart infusion at 50% of the most recent rate. If the most recent rate less than 2 units/hr, contact covering provider for reinitiation or transition plan. Patients with renal failure (CrCl less than 40 mL/min, urine output less than 30 mL/hr, or receiving dialysis) limit infusion rate increases to be NO SOONER THAN EVERY 3 HOURS. Patients with type 1 diabetes or equivalent: Do not discontinue drip until insulin maintenance regimen is implemented. Notify the provider when stopping the infusion. When new IV tubing is used, completely prime the tubing. Once primed, waste an additional 20 ml of insulin infusion using the IV pump prior to connecting to patient., RoutineIndications:Hyperglyc emia Rate/Dose Change 06/16/2022 6:08 PM CDT 5 Units/hr 5 mL/hr Rate/Dose Verify 06/16/2022 6:00 PM CDT 2 Units/hr 2 mL/hr New Bag 06/16/2022 4:47 PM CDT 2 Units/hr 2 mL/hr insulin regular in 0.9% sodium chloride (MYXREDLIN) 100 unit/100 mL (1 unit/mL) infusion (premix) 0-30 Units/hr (0-30 mL/hr), 1 units/mL, intravenous, Titrated, Starting on [place] 06/16/22 at 1845, Until 06/18/22 at 1237, Indications: Hyperglycemia, NON-WEIGHT BASED DOSING Blood Glucose (BG) - BG DECREASED OR SAME as last value: Less than 70 mg/dL - Stop insulin infusion *(see below for drip reinitiation instructions). Follow hypoglycemia orders. Notify covering MD. 70 - 100 mg/dL - Stop infusion *(see below for drip reinitiation instructions). Resume BG Q 1 hour. 101 - 160 mg/dL - If BG decreased by greater than or equal to 40 mg/dL, decrease infusion by 50% or stop infusion if less than or equal to 2 units/hour *(see below for drip reinitiation instructions). Resume BG Q 1 hour. If BG decreased less than 40 mg/dL, continue same rate. 161 - 200 mg/dL- If BG decreased by greater than or equal to 60 mg/dL, decrease infusion by 50% or stop infusion if less than or equal to 2 units/hour *(see below for drip reinitiation instructions). Resume BG Q 1 hour. If BG decreased less than 60 mg/dL, continue same rate. 201 - 250 mg/dl - If BG decreased by greater than or equal to 60 mg/dL continue same rate. If decreased by less than 60 mg/dL, increase by 1 unit/hr. 251 - 300 mg/dL - Increase by 2 units/hour. 301 - 349 mg/dL - Increase by 2 units/hour. 350 - 400 mg/dL - Increase by 3 units/hr. Greater than 400 mg/dL - Notify covering MD Blood Glucose (BG) - Blood glucose INCREASED since last value: 70 - 100 mg/dL - Continue to hold infusion 101 - 160 mg/dL - Maintain at present rate or if drip has been off, follow reinitiation instructions* 161 - 200 mg/dL- Increase by or restart at 1 unit/hour or if drip has been off, follow reinitiation instructions* 201 - 250 mg/dL- Give 4 units insulin IVP then increase infusion by 2 units/hour or if drip has been off, follow reinitiation instructions* 251 - 300 mg/dL - Give 4 units insulin IVP then increase infusion by 2 units/hour or if drip has been off, follow reinitiation instructions* 301 - 349 mg/dL - Give 6 units insulin IVP then increase infusion by 3 units/hour or if drip has been off, follow reinitiation instructions* 350 - 400 mg/dL - Give 6 units insulin IVP then increase infusion by 3 units/hour or if drip has been off, follow reinitiation instructions* Greater than 400 mg/dL - Notify covering MD. *Drip Reinitiation Instructions: Check BG Q 1 hour; when BG greater than 100 mg/dL, restart infusion at 50% of the most recent rate. If the most recent rate less than 2 units/hr, contact covering provider for reinitiation or transition plan. Patients with renal failure (CrCl less than 40 mL/min, urine output less than 30 mL/hr, or receiving dialysis) limit infusion rate increases to be NO SOONER THAN EVERY 3 HOURS. Patients with type 1 diabetes or equivalent: Do not discontinue drip until insulin maintenance regimen is implemented. Notify the provider when stopping the infusion. When new IV tubing is used, completely prime the tubing. Once primed, waste an additional 20 ml of insulin infusion using the IV pump prior to connecting to patient., RoutineIndications:Hyperglyc emia Rate/Dose Verify 06/18/2022 10:00 AM CDT 6 Units/hr 6 mL/hr Rate/Dose Verify 06/18/2022 8:00 AM CDT 6 Units/hr 6 mL/hr Rate/Dose Verify 06/18/2022 6:00 AM CDT 6 Units/hr 6 mL/hr insulin regular in 0.9% sodium chloride (MYXREDLIN) 100 unit/100 mL (1 unit/mL) infusion (premix) 0-30 Units/hr (0-30 mL/hr), 1 units/mL, intravenous, Titrated, Starting on 06/18/22 at 1345, Until 06/18/22 at 1534, Indications: Hyperglycemia, NON-WEIGHT BASED DOSING Blood Glucose (BG) - BG DECREASED OR SAME as last value: Less than 70 mg/dL - Stop insulin infusion *(see below for drip reinitiation instructions). Follow hypoglycemia orders. Notify covering MD. 70 - 100 mg/dL - Stop infusion *(see below for drip reinitiation instructions). Resume BG Q 1 hour. 101 - 160 mg/dL - If BG decreased by greater than or equal to 40 mg/dL, decrease infusion by 50% or stop infusion if less than or equal to 2 units/hour *(see below for drip reinitiation instructions). Resume BG Q 1 hour. If BG decreased less than 40 mg/dL, continue same rate. 161 - 200 mg/dL- If BG decreased by greater than or equal to 60 mg/dL, decrease infusion by 50% or stop infusion if less than or equal to 2 units/hour *(see below for drip reinitiation instructions). Resume BG Q 1 hour. If BG decreased less than 60 mg/dL, continue same rate. 201 - 250 mg/dl - If BG decreased by greater than or equal to 60 mg/dL continue same rate. If decreased by less than 60 mg/dL, increase by 1 unit/hr. 251 - 300 mg/dL - Increase by 2 units/hour. 301 - 349 mg/dL - Increase by 2 units/hour. 350 - 400 mg/dL - Increase by 3 units/hr. Greater than 400 mg/dL - Notify covering MD Blood Glucose (BG) - Blood glucose INCREASED since last value: 70 - 100 mg/dL - Continue to hold infusion 101 - 160 mg/dL - Maintain at present rate or if drip has been off, follow reinitiation instructions* 161 - 200 mg/dL- Increase by or restart at 1 unit/hour or if drip has been off, follow reinitiation instructions* 201 - 250 mg/dL- Give 4 units insulin IVP then increase infusion by 2 units/hour or if drip has been off, follow reinitiation instructions* 251 - 300 mg/dL - Give 4 units insulin IVP then increase infusion by 2 units/hour or if drip has been off, follow reinitiation instructions* 301 - 349 mg/dL - Give 6 units insulin IVP then increase infusion by 3 units/hour or if drip has been off, follow reinitiation instructions* 350 - 400 mg/dL - Give 6 units insulin IVP then increase infusion by 3 units/hour or if drip has been off, follow reinitiation instructions* Greater than 400 mg/dL - Notify covering MD. *Drip Reinitiation Instructions: Check BG Q 1 hour; when BG greater than 100 mg/dL, restart infusion at 50% of the most recent rate. If the most recent rate less than 2 units/hr, contact covering provider for reinitiation or transition plan. Patients with renal failure (CrCl less than 40 mL/min, urine output less than 30 mL/hr, or receiving dialysis) limit infusion rate increases to be NO SOONER THAN EVERY 3 HOURS. Patients with type 1 diabetes or equivalent: Do not discontinue drip until insulin maintenance regimen is implemented. Notify the provider when stopping the infusion. When new IV tubing is used, completely prime the tubing. Once primed, waste an additional 20 ml of insulin infusion using the IV pump prior to connecting to patient., RoutineIndications:Hyperglyc emia Rate/Dose Change 06/18/2022 4:18 PM CDT 3 Units/hr 3 mL/hr Restarted 06/18/2022 1:35 PM CDT 6 Units/hr 6 mL/hr INSULIN SUBCUTANEOUS PUMP (HUMALOG) 100 UNITS/ML INSULIN PUMP INFUSION (HumaLOG) patient supplied pump 0-25 Units 0-25 Units, subcutaneous, Continuous, Starting on Mon06/28/22 at 1230, Current pump settings will remain until a [...] Ratio, High Glucose Correction, Basal Rate (units/hr): 1, From (hh:mm): 3:30 AM, To (hh:mm): 8:00 AM, Basal Rate (units/hr): 0.8, From (hh:mm): 8:00 AM, To (hh:mm): 8:00 PM, Basal Rate (units/hr): 5.8, From (hh:mm): 8:00 PM, To (hh:mm): 3:30 AM, Carbohydrate Ratio: 1 unit per how many gm carbohydrate: 6.5, From: (hh:mm): 12:00 AM, To:(hh:mm): 12:00 AM, High Glucose Correction: 1 unit per how many mg/dL over target: 25, From:(hh:mm): 12:00 AM, To:(hh:mm): 12:00 AM, Choose Target (mg/dL): 120, Indications: Diabetes MellitusIndications:Diabe canelo Mellitus Self Administered Via Pump 06/29/2022 12:34 PM SENIOR ART DIRECTOR 8 Units Left Lower Abdomen Self Administered Via Pump 06/29/2022 8:27 AM SENIOR ART DIRECTOR 7 Units Left Lower Abdomen Self Administered Via Pump 06/28/2022 5:55 PM SENIOR ART DIRECTOR 4.3 Unit s Left Lower Abdomen isosorbide mononitrate ER (IMDUR) extended release tablet 30 mg 30 mg, oral, Daily, First dose on 06/05/22 at 0900, Tablets that are scored may be split, but do not crush, chew, dissolve, open or otherwise manipulate tablet/capsule., On hold since Mon06/07/2022 at 1649 until manually unheld Given 06/07/2022 8:01 AM CDT 30 mg Given 06/06/2022 8:20 AM CDT 30 mg Given 06/05/2022 8:50 AM CDT 30 mg isosorbide mononitrate ER (IMDUR) extended release tablet 30 mg 30 mg, oral, Daily, First dose on Mon06/24/22 at 1715, Tablets that are scored may be split, but do not crush, chew, dissolve, open or otherwise manipulate tablet/capsule. Given 06/29/2022 8:22 AM SENIOR ART DIRECTOR 30 m g Given 06/28/2022 8:56 AM SENIOR ART DIRECTOR 30 mg Given 06/27/2022 8:18 AM SENIOR ART DIRECTOR 30 mg lidocaine (LIDODERM) 5 % patch 1 patch 1 patch, transdermal, Administer over 12 Hours, Daily PRN, 2nd line for pain, Starting on 06/05/22 at 0413, Do not cover the holes on the top side of the patch., Apply to affected area: back lidocaine PF (XYLOCAINE) 10 mg/mL (1 %) preservative free injection Code/trauma/sedation medication, Starting on 06/18/22 at 1231, Intra-Procedure (IR), Indications: Administration of Local AnesthesiaIndications:Administration of Local Anesthesia Given 06/18/2022 12:31 PM CDT 10 mL losartan (COZAAR) tablet 12.5 mg 12.5 mg, oral, Daily, First dose on 06/25/22 at 0900 Given 06/29/2022 8:22 AM SENIOR ART DIRECTOR 12.5 mg Given 06/28/2022 8:56 AM SENIOR ART DIRECTOR 12.5 mg Given 06/27/2022 8:17 AM SENIOR ART DIRECTOR 12.5 mg magnesium sulfate 2 g/50 mL in water (premix) 2 g 2 g, intravenous, Administer over 60 Minutes, Once, On 06/18/22 at 1915, For 1 dose New Bag 06/18/2022 7:25 PM CDT 2 g meropenem (MERREM) 1,000 mg/110 mL in sodium chloride 0.9% (premix) 1,000 mg 1,000 mg, intravenous, at 220 mL/hr, Administer over 30 Minutes, Every 12 hours scheduled, First dose (after last modification) on Mon06/08/22 at 1315, Indications: Abdominal/Pelvic InfectionIndications:Abdominal/P elvic Infection New Bag 06/16/2022 12:04 PM CDT 1,000 mg 220 mL/hr New Bag 06/16/2022 12:11 AM CDT 1,000 mg 220 mL/hr New Bag 06/15/2022 11:59 AM CDT 1,000 mg 220 mL/hr meropenem (MERREM) 1,000 mg/110 mL in sodium chloride 0.9% (premix) 1,000 mg 1,000 mg, intravenous, at 220 mL/hr, Administer over 30 Minutes, Every 24 hours, First dose (after last modification) on Mon06/17/22 at 1215, Indications: Abdominal/Pelvic InfectionIndications:Abdominal/P elvic Infection New Bag 06/17/2022 12:16 PM CDT 1,000 mg 220 mL/hr meropenem (MERREM) 2,000 mg/120 mL in sodium chloride 0.9% (premix) 2,000 mg 2,000 mg, intravenous, Administer over 30 Minutes, Every 12 hours scheduled, First dose (after last modification) on Mon06/18/22 at 2100, Indications: Abdominal/Pelvic InfectionIndications:Abdominal/P elvic Infection New Bag 06/18/2022 7:54 PM CDT 2,000 mg meropenem (MERREM) 500 mg/105 mL in sodium chloride 0.9% (premix) 500 mg 500 mg, intravenous, Administer over 30 Minutes, Every 24 hours, First dose on Mon06/05/22 at 1730, Indications: Abdominal/Pelvic InfectionIndications:Abdominal/P elvic Infection New Bag 06/07/2022 8:14 PM CDT 500 mg New Bag 06/06/2022 4:51 PM CDT 500 mg New Bag 06/05/2022 6:57 PM CDT 500 mg metOLazone (ZAROXOLYN) tablet 5 mg 5 mg, oral, Daily, First dose on Mon06/05/22 at 0900 Given 06/05/2022 8:49 AM CDT 5 mg metoprolol tartrate (LOPRESSOR) immediate release tablet 12.5 mg 12.5 mg, oral, 4 times daily, First dose (after last modification) on Mon06/06/22 at 1700 Given 06/07/2022 8:02 AM CDT 12.5 mg Given 06/06/2022 8:19 PM CDT 12.5 mg Given 06/06/2022 4:51 PM CDT 12.5 mg metoprolol tartrate (LOPRESSOR) immediate release tablet 12.5 mg 12.5 mg, oral, Every 6 hours, First dose on Mon06/21/22 at 1100 Given 06/22/2022 10:53 AM CDT 12.5 mg Given 06/22/2022 5:58 AM CDT 12.5 mg Given 06/21/2022 10:06 PM CDT 12.5 mg metoprolol tartrate (LOPRESSOR) immediate release tablet 25 mg 25 mg, oral, Every 6 hours, First dose (after last modification) on Mon06/22/22 at 1700 Given 06/23/2022 12:42 PM CDT 2 5 mg Given 06/23/2022 9:07 AM CDT 25 mg Given 06/23/2022 1:35 AM CDT 25 mg metoprolol tartrate (LOPRESSOR) immediate release tablet 25 mg 25 mg, oral, 2 times daily, First dose (after last modification) on Mon06/26/22 at 1015 Given 06/26/2022 2:15 PM SENIOR ART DIRECTOR 25 mg metoprolol tartrate (LOPRESSOR) immediate release tablet 25 mg 25 mg, oral, 2 times daily, First dose (after last modification) on Mon06/27/22 at 0900 Given 06/29/2022 8:22 AM SENIOR ART DIRECTOR 25 mg Given 06/28/2022 9:00 PM SENIOR ART DIRECTOR 25 mg Given 06/28/2022 8:56 AM SENIOR ART DIRECTOR 25 mg metoprolol tartrate (LOPRESSOR) immediate release tablet 50 mg 50 mg, oral, 2 times daily, First dose (after last modification) on 06/05/22 at 0900 Given 06/06/2022 8:20 AM CDT 5 0 mg Given 06/05/2022 8:50 AM CDT 50 mg metoprolol tartrate (LOPRESSOR) immediate release tablet 50 mg 50 mg, oral, 2 times daily, First dose (after last modification) on [place] 06/23/22 at 2100 Given 06/25/2022 9:22 AM CDT 50 mg Given 06/24/2022 9:01 PM CDT 50 mg Given 06/24/2022 9:56 AM CDT 50 mg midazolam (VERSED) 1 mg/mL in sodium chloride 0.9% (premix) solution 0-12 mg/hr (0-12 mL/hr), 1 mg/mL, intravenous, Titrated, Starting on [facility] 06/11/22 at 0145, Until [facility] 06/15/22 at 0738, Titration Instructions: Titrate, Initial dose: 0.5 mg/hr, Titrate: Up/Down, Titrate by: 1 mg/hr, Every: 30 minutes, Goal: RASS, RASS Goal: -2, -1, -3, Routine Rate/Dose Verify 06/13/2022 1:00 PM CDT 0.5 mg/hr 0.5 mL/hr Rate/Dose Change 06/13/2022 12:15 PM CDT 0.5 mg/hr 0.5 mL /hr Rate/Dose Verify 06/13/2022 12:00 PM CDT 1.5 mg/hr 1.5 mL /hr midazolam (VERSED) 1 mg/mL in sodium chloride 0.9% (premix) solution 0-12 mg/hr (0-12 mL/hr), 1 mg/mL, intravenous, Titrated, Starting on [place] 06/16/22 at 1700, Until [place] 06/19/22 at 1756, Titration Instructions: Titrate, Initial dose: 0.5 mg/hr, Titrate: Up/Down, Titrate by: 1 mg/hr, Every: 30 minutes, Goal: RASS, RASS Goal: -1, -2, -3, Routine Rate/Dose Verify 06/18/2022 6:00 AM CDT 2.5 mg/hr 2.5 mL/hr Rate/Dose Verify 06/18/2022 5:00 AM CDT 2.5 mg/hr 2.5 mL/ hr Rate/Dose Verify 06/18/2022 4:00 AM CDT 2.5 mg/hr 2.5 mL/ hr midazolam (VERSED) 1 mg/mL injection 2 mg 2 mg, intravenous, Once, On Mon06/15/22 at 1830, For 1 dose Given 06/15/2022 6:05 PM CDT 2 mg midazolam (VERSED) 1 mg/mL injection 2 mg 2 mg, intravenous, Every 2 hours PRN, anxiety, Starting on Mon06/15/22 at 1929 Given 06/17/2022 3:44 PM CDT 2 mg Given 06/16/2022 3:04 PM CDT 2 mg Given 06/16/2022 1:31 PM CDT 2 mg midazolam (VERSED) bolus from bag 2 mg 2 mg, intravenous, Once, On [place] 06/16/22 at 1800, For 1 dose Bolus from Bag 06/16/2022 5:45 PM CDT 2 mg nitroglycerin (NITROSTAT) sublingual tablet 0.4 mg 0.4 mg, sublingual, Every 5 min PRN, chest pain, Starting on 06/04/22 at 2215, May administer up to 3 doses per episode. Given 06/05/2022 2:53 PM CDT 0.4 mg nitroglycerin (NITROSTAT) sublingual tablet 0.4 mg 0.4 mg, sublingual, Every 5 min PRN, chest pain, Starting on [place] 06/23/22 at 1358, May administer up to 3 doses per episode. nitroglycerin in dextrose 5% 50 mg/250 mL (200 mcg/mL) infusion (premix) 0-400 mcg/min (0-120 mL/hr), 0.2 mg/mL, intravenous, Titrated, Starting on 06/05/22 at 1645, Until 06/05/22 at 1659, Initial rate: 10 mcg/min, Titrate: Up/Down, Titrate by: 10 mcg/min, Every: 5 minutes, Goal: Chest pain, Routine Rate/Dose Change 06/05/2022 4:58 PM CDT 70 mcg/min 21 mL/hr Rate/Dose Change 06/05/2022 4:51 PM CDT 60 mcg/min 18 mL/h r Rate/Dose Change 06/05/2022 4:46 PM CDT 50 mcg/min 15 mL/h r nitroglycerin in dextrose 5% 50 mg/250 mL (200 mcg/mL) infusion (premix) 0-400 mcg/min (0-120 mL/hr), 0.2 mg/mL, intravenous, Titrated, Starting on Mon06/05/22 at 1730, Until Mon06/14/22 at 1646, Initial rate: 10 mcg/min, Titrate: Up/Down, Titrate by: 10 mcg/min, Every: 5 minutes, Goal: SBP, SBP Goal: Other (comment) / 140-160 mmHg, Routine Rate/Dose Change 06/05/2022 8:45 PM CDT 30 mcg/min 9 mL/hr Rate/Dose Change 06/05/2022 8:30 PM CDT 40 mcg/min 12 mL/h r Rate/Dose Change 06/05/2022 8:15 PM CDT 50 mcg/min 15 mL/h r norepinephrine in 0.9% sodium chloride (LEVOPHED) 8,000 mcg/250 mL (32 mcg/mL) infusion (premix) - ADS Override Pull Starting on Mon06/10/22 at 1953, For 1 dose, Created by destini override norepinephrine in 0.9% sodium chloride (LEVOPHED) 8,000 mcg/250 mL (32 mcg/mL) infusion (premix) 0-2 mcg/kg/min ? 142 kg Dosing weight (0-532.5 mL/hr), 32 mcg/mL, intravenous, Titrated, Starting on Mon06/07/22 at 1730, Until Mon06/19/22 at 1613, Indications: hypotension, Initial rate: 0.05 mcg/kg/min, Titrate: Up/Down, Titrate by: 0.01 mcg/kg/min, Every: 2 minutes, Goal: MAP, MAP Goal: 55-65 mmHg, Discontinue when drip is off and stable at goal. , RoutineIndications:hypote nsion Rate/Dose Verify 06/19/2022 3:00 PM CDT 0.08 mcg/kg/min 21.3 mL/hr Rate/Dose Change 06/19/2022 2:00 PM CDT 0.08 mcg/kg/min 21 .3 mL/hr Rate/Dose Change 06/19/2022 1:00 PM CDT 0.05 mcg/kg/min 13 .31 mL/hr norepinephrine in 0.9% sodium chloride (LEVOPHED) 8,000 mcg/250 mL (32 mcg/mL) infusion (premix) 0-2 mcg/kg/min ? 125 kg (0-468.75 mL/hr), 32 mcg/mL, intravenous, Titrated, Starting on Mon06/19/22 at 1645, Until Mon06/22/22 at 1924, Indications: hypotension, Initial rate: 0.05 mcg/kg/min, Titrate: Up/Down, Titrate by: 0.01 mcg/kg/min, Every: 2 minutes, Goal: SBP, SBP Goal: 90-110 mmHg, Discontinue when drip is off and stable at goal. , RoutineIndications:hypot ension Rate/Dose Change 06/20/2022 1:25 AM CDT 0.026 mcg/kg/min 6 mL/hr Rate/Dose Change 06/20/2022 1:00 AM CDT 0.034 mcg/kg/min 8 mL/hr Rate/Dose Verify 06/20/2022 12:14 AM CDT 0.03 mcg/kg/min 7 .03 mL/hr NxStage 3-potassium/3-calcium solution 1,400 mL/hr, CRRT, Continuous, Starting on Mon06/13/22 at 1315, Dialysate fluid Activate prior to administration Product code RFP- 406 New Bag 06/14/2022 9:33 PM CDT 1,400 mL/hr 1400 mL/hr New Bag 06/14/2022 7:50 PM CDT 1,400 mL/hr 1400 mL/hr New Bag 06/14/2022 10:25 AM CDT 1,400 mL/hr 1400 mL/hr NxStage 3-potassium/3-calcium solution 1,400 mL/hr, CRRT, Continuous, Starting on Mon06/13/22 at 1315, Pre-filter replacement fluid. Activate prior to administration Product code RFP- 406 New Bag 06/15/2022 6:13 AM CDT 1,400 mL/hr 1400 mL/hr New Bag 06/15/2022 3:44 AM CDT 1,400 mL/hr 1400 mL/hr New Bag 06/15/2022 12:57 AM CDT 1,400 mL/hr 1400 mL/hr NxStage 3-potassium/3-calcium solution 6,000 mL/hr, dialysis ([facility]), Continuous, Starting on Mon06/20/22 at 1300, For 30 hours, Dialysate fluid for [facility] to send 12 bags of 5 liters each to bedside. Activate prior to administration Product code RFP- 406, Indications: Renal DialysisIndications:Renal Dialysis New Bag 06/20/2022 3:08 PM CDT 6,000 mL/hr 6000 mL/hr New Bag 06/20/2022 3:07 PM CDT 6,000 mL/hr 6000 mL/hr New Bag 06/20/2022 3:06 PM CDT 6,000 mL/hr 6000 mL/hr NxStage 4-potassium/2.5-calcium solution 1,400 mL/hr, CRRT, Continuous, Starting on Mon06/07/22 at 1715, Dialysate fluid Activate prior to administration Product code RFP - 404 New Bag 06/11/2022 6:36 AM CDT 1,400 mL/hr 1400 mL/hr New Bag 06/11/2022 3:30 AM CDT 1,400 mL/hr 1400 mL/hr New Bag 06/11/2022 12:00 AM CDT 1,400 mL/hr 1400 mL/hr NxStage 4-potassium/2.5-calcium solution 1,400 mL/hr, CRRT, Continuous, Starting on Mon06/07/22 at 1715, Pre-filter replacement fluid. Activate prior to administration Product code RFP - 404 New Bag 06/11/2022 6:35 AM CDT 1,400 mL/hr 1400 mL/hr New Bag 06/11/2022 3:30 AM CDT 1,400 mL/hr 1400 mL/hr New Bag 06/11/2022 12:00 AM CDT 1,400 mL/hr 1400 mL/hr NxStage 4-potassium/2.5-calcium solution 1,400 mL/hr, CRRT, Continuous, Starting on Mon06/11/22 at 1345, Dialysate fluid Activate prior to administration Product code RFP - 404 New Bag 06/13/2022 5:01 AM CDT 1,400 mL/hr 1400 mL/hr New Bag 06/13/2022 5:00 AM CDT 1,400 mL/hr 1400 mL/hr New Bag 06/13/2022 12:56 AM CDT 1,400 mL/hr 1400 mL/hr NxStage 4-potassium/2.5-calcium solution 1,400 mL/hr, CRRT, Continuous, Starting on 06/11/22 at 1345, Pre-filter replacement fluid. Activate prior to administration Product code RFP - 404 New Bag 06/12/2022 5:31 PM CDT 1,400 mL/hr 1400 mL/hr New Bag 06/12/2022 1:43 PM CDT 1,400 mL/hr 1400 mL/hr New Bag 06/12/2022 9:58 AM CDT 1,400 mL/hr 1400 mL/hr NxStage 4-potassium/2.5-calcium solution 1,400 mL/hr, CRRT, Continuous, Starting on 06/18/22 at 1400, Dialysate fluid Activate prior to administration Product code RFP - 404 New Bag 06/20/2022 10:58 AM CDT 1,400 mL/hr 1400 mL/hr New 06/20/2022 7:23 AM CDT 1,400 mL/hr 1400 mL/hr New Bag 06/20/2022 2:11 AM CDT 1,400 mL/hr 1400 mL/hr NxStage 4-potassium/2.5-calcium solution 1,400 mL/hr, CRRT, Continuous, Starting on 06/18/22 at 1400, Pre-filter replacement fluid. Activate prior to administration Product code RFP - 404 New Bag 06/20/2022 2:12 AM CDT 1,400 mL/hr 1400 mL/hr New 06/19/2022 10:28 PM CDT 1,400 mL/hr 1400 mL/hr New Bag 06/19/2022 12:23 PM CDT 1,400 mL/hr 1400 mL/hr nystatin 100,000 unit/mL oral suspension 500,000 Units 500,000 Units, swish & spit, 4 times daily, First dose on 06/06/22 at 1700, Indications: Prophylaxis, Medical, prevent bacterial translocation for PD, On hold since Mon06/07/2022 at 1649 until manually unheldIndications:Prophylaxis, Medical,prevent bacterial translocation for PD Given 06/07/2022 8:02 AM CDT 500,000 Units Given 06/06/2022 8:19 PM CDT 500,000 Units ondansetron (ZOFRAN) injection 4 mg 4 mg, intravenous, Administer over 2 Minutes, Every 6 hours PRN, nausea, vomiting, if not tolerating PO, Starting on Mon06/08/22 at 0919, Indications: Nausea and VomitingIndications:Nausea and Vomiting ondansetron ODT (ZOFRAN-ODT) disintegrating tablet 4 mg 4 mg, feeding tube, Every 6 hours PRN, nausea, vomiting, Starting on Mon06/08/22 at 0919, Indications: Nausea and VomitingIndications:Nausea and Vomiting pantoprazole (PROTONIX) 4 mg/mL injection 40 mg 40 mg, intravenous, Administer over 2 Minutes, 2 times daily, First dose on Mon06/07/22 at 2115, For IV Push administration for adults- 40 mg vial: add 10 mL of sodium chloride 0.9% to achieve a final concentration of 4 mg/mL, Indications: Treatment of Non-Bleeding Gastric DisorderIndications:Treatment of Non-Bleeding Gastric Disorder Given 06/24/2022 9:01 PM CDT 40 mg Given 06/24/2022 9:58 AM CDT 40 mg Given 06/23/2022 9:23 PM CDT [address] (PROTONIX) extended release tablet 40 mg 40 mg, oral, Daily, First dose on Mon06/05/22 at 0900, Do not crush, chew, cut, dissolve, open or otherwise manipulate tablet/capsule., Indications: Treatment of Non-Bleeding Gastric DisorderIndications:Treatment of Non-Bleeding Gastric Disorder Given 06/07/2022 8:02 AM CDT 40 mg Given 06/06/2022 8:20 AM CDT 40 mg Given 06/05/2022 8:50 AM CDT [address] (PROTONIX) extended release tablet 40 mg 40 mg, oral, 2 times daily, First dose on Mon06/25/22 at 0900, Do not crush, chew, cut, dissolve, open or otherwise manipulate tablet/capsule., Indications: GI BleedIndications:GI Bleed Given 06/25/2022 9:22 AM CDT [address] (PROTONIX) extended release tablet 40 mg 40 mg, oral, Daily, First dose (after last modification) on 06/26/22 at 0900, Do not crush, chew, cut, dissolve, open or otherwise manipulate tablet/capsule., Indications: GI BleedIndications:GI Bleed Given 06/29/2022 8:22 AM SENIOR ART DIRECTOR 40 mg Given 06/28/2022 8:56 AM SENIOR ART DIRECTOR 40 mg Given 06/27/2022 8:18 AM SENIOR ART DIRECTOR 40 mg perflutren protein-a (OPTISON) 0.22 mg/mL injection - ADS Override Pull Starting on Mon06/08/22 at 1423, For 1 dose, Created by cabinet override Contrast Given 06/08/2022 2:42 PM CDT 3 mL perflutren protein-a (OPTISON) 3 mL in sodium chloride 0.9% 8 mL syringe 1-8 mL, intravenous, Once in imaging, contrast, Starting on 06/13/22 at 0838, For 1 dose, Intra-Procedure (CV) Contrast Given 06/13/2022 9:35 AM CD T 2 mL polyethylene glycol (MIRALAX) packet 17 g 17 g, oral, Daily, First dose on 06/05/22 at 0930, Indications: constipationIndications:constipation Given 06/08/2022 8:54 AM CDT 17 g Given 06/07/2022 8:02 AM CDT 17 g Given 06/06/2022 8:19 AM CDT 17 g polyethylene glycol (MIRALAX) packet 17 g 17 g, feeding tube, Daily, First dose (after last modification) on Gregoria 06/09/22 at 0900, Indications: constipationIndications:constipation Given 06/09/2022 8:59 AM CDT 17 g polyethylene glycol (MIRALAX) packet 17 g 17 g, feeding tube, 2 times daily, First dose (after last modification) on Mon06/10/22 at 0615, Indications: constipationIndications:constipation Given 06/20/2022 7:58 AM CDT 17 g Given 06/19/2022 8:50 AM CDT 17 g Given 06/18/2022 9:47 AM CDT 17 g polyvinyl alcohol-povidone (REFRESH CLASSIC) 1.4-0.6 % ophthalmic solution 1 drop 1 drop, each eye, 4 times daily, First dose on Gregoria 06/16/22 at 2100 Given 06/29/2022 12:34 PM SENIOR ART DIRECTOR 1 drop Given 06/29/2022 8:22 AM SENIOR ART DIRECTOR 1 drop Given 06/28/2022 9:01 PM SENIOR ART DIRECTOR 1 drop potassium chloride (KLOR-CON) packet 40 mEq 40 mEq, feeding tube, Once, On Mon06/07/22 at 2300, For 1 dose, Dissolve one packet in at least 120 mL of cold water or other beverage prior to administration. Given 06/07/2022 11:49 PM CDT 40 mEq potassium chloride 40 mEq/100 mL in sterile water (premix) 40 mEq 40 mEq, intravenous, at 25 mL/hr, Administer over 4 Hours, Once, On Mon06/07/22 at 2230, For 1 dose, Total dose = 60 mEq Central line only Rate/Dose Verify 06/07/2022 11:00 PM CDT 25 mL/hr New Bag 06/07/2022 10:09 PM CDT 40 mEq 25 mL/hr potassium chloride 40 mEq/100 mL in sterile water (premix) 40 mEq 40 mEq, intravenous, at 25 mL/hr, Administer over 4 Hours, Every 4 hours, First dose on Mon06/08/22 at 0015, For 2 doses, Total dose = 80 mEq Central line only, Indications: hypokalemiaIndications:hypokalemia New Bag 06/07/2022 11:51 PM CDT 40 mE q 25 mL/hr potassium chloride ER (KLOR-CON) extended release tablet 20 mEq 20 mEq, oral, Once, On 06/27/22 at 0900, For 1 dose, Do not crush, chew, cut, dissolve, open or otherwise manipulate tablet/capsule. Given 06/27/2022 8:57 AM SENIOR ART DIRECTOR 20 mEq potassium chloride ER (KLOR-CON) extended release tablet 30 mEq 30 mEq, oral, Once, On Mon06/17/22 at 2315, For 1 dose, Do not crush, chew, cut, dissolve, open or otherwise manipulate tablet/capsule. Given 06/17/2022 10:40 PM CDT 30 mEq predniSONE (DELTASONE) tablet 50 mg 50 mg, oral, Every 6 hours, First dose on Mon06/07/22 at 0000, For 3 doses, Call Radiology to schedule procedure after the 1st dose is administered. CT Corporate Security Officer South: 7-[address] Corporate Security Officer North: 7-5 After , Indications: IV Contrast Media Allergy PremedicationIndications:IV Contrast Media Allergy Premedication Given 06/07/2022 10:18 AM CDT 50 mg Given 06/07/2022 6:01 AM CDT 50 mg Given 06/06/2022 11:52 PM CDT 50 mg propofol (DIPRIVAN) 10 mg/mL infusion 0-50 mcg/kg/min ? 140.8 kg (0-42.24 mL/hr), 10 mg/mL, intravenous, Titrated, Starting on Mon06/07/22 at 1445, Until Mon06/19/22 at 1756, Titration instructions: Titrate, Initial dose: 30 mcg/kg/min, Titrate: Up/Down, Titrate by: 10 mcg/kg/min, Every: 10 minutes, Goal: RASS, RASS Goal: -2, Do not administer through the same I.V. catheter with blood or plasma. Tubing and any unused portions of propofol vials should be discarded after 12 hours. Room temperature only, Routine Rate/Dose Verify 06/15/2022 10:00 AM CDT 30 mcg/kg/min 25.3 mL/hr Rate/Dose Verify 06/15/2022 9:00 AM CDT 30 mcg/kg/min 25.3 mL/hr Rate/Dose Verify 06/15/2022 8:00 AM CDT 30 mcg/kg/min 25.3 mL/hr ramelteon (ROZEREM) tablet 8 mg 8 mg, feeding tube, Nightly PRN, sleep, Starting on Mon06/08/22 at 0919, Indications: Sleep-Onset InsomniaIndications:Sleep-Onset Insomnia Given 06/08/2022 8:41 PM CDT 8 m g ranolazine ER (RANEXA) extended release tablet 500 mg 500 mg, oral, 2 times daily, First dose on Mon06/05/22 at 0900, On hold since Mon06/07/2022 at 1711 until manually unheld Given 06/07/2022 8:01 AM CDT 500 mg Given 06/06/2022 8:19 PM CDT 500 mg Given 06/06/2022 8:20 AM CDT 500 mg ranolazine ER (RANEXA) extended release tablet 500 mg 500 mg, oral, 2 times daily, First dose on Mon06/24/22 at 2100, On hold since Mon06/26/2022 at 1551 until manually unheld Given 06/26/2022 9:17 AM SENIOR ART DIRECTOR 500 mg Given 06/25/2022 9:41 PM CDT 500 mg Given 06/25/2022 9:22 AM CDT 500 mg senna (SENOKOT) tablet 1 tablet 1 tablet, feeding tube, Daily, First dose (after last modification) on Mon06/10/22 at 0545 Given 06/12/2022 8:40 AM CDT 1 tablet Given 06/11/2022 8:57 AM CDT 1 tablet Given 06/10/2022 8:50 AM CDT 1 tablet senna 1.76 mg/mL syrup 8.8 mg 8.8 mg, oral, Nightly, First dose on Mon06/12/22 at 2100 Given 06/16/2022 9:10 PM CDT 8.8 mg Given 06/15/2022 9:08 PM CDT 8.8 mg Given 06/14/2022 7:52 PM CDT 8.8 mg sodium bicarbonate 8.4 % (1 mEq/mL) injection 50 mEq 50 mEq, intravenous, Once, On Mon06/07/22 at 1430, For 1 dose, Intra-Procedure (CV) Given 06/07/2022 1:35 PM CDT 50 mEq sodium chloride 0.9% 0.9% infusion - ADS Override Pull Starting on Mon06/14/22 at 0852, For 1 dose, Created by cabinet override sodium chloride 0.9% infusion 10 mL/hr, intravenous, Continuous, Starting on Mon06/07/22 at 1215 New Bag 06/12/2022 8:34 AM CDT 10 mL/hr 10 mL/hr New Bag 06/11/2022 12:00 PM CDT 10 mL/hr 10 mL/hr Rate/Dose Verify 06/10/2022 5:00 PM CDT 10 mL/hr 10 mL/h r sodium chloride 0.9% infusion 10 mL/hr, intravenous, Continuous, Starting on Mon06/07/22 at 1215 Rate/Dose Verify 06/09/2022 7:00 AM CDT 10 mL/hr 10 mL/hr Rate/Dose Verify 06/09/2022 6:00 AM CDT 10 mL/hr 10 mL/h r Rate/Dose Verify 06/09/2022 5:00 AM CDT 10 mL/hr 10 mL/h r sodium chloride 0.9% infusion 10 mL/hr, intravenous, Continuous, Starting on Mon06/07/22 at 1730, KVO to proximal infusion port Rate/Dose Verify 06/09/2022 7:00 AM CDT 10 mL/hr 10 mL/hr Rate/Dose Verify 06/09/2022 6:00 AM CDT 10 mL/hr 10 mL/h r Rate/Dose Verify 06/09/2022 5:00 AM CDT 10 mL/hr 10 mL/h r sodium chloride 0.9% infusion 6 mL/hr, intravenous, Continuous, Starting on Mon06/07/22 at 1730, Pressurized NS at 300 mmHg to PA proximal and distal ports Rate/Dose Verify 06/10/2022 5:00 PM CDT 6 mL/hr 6 mL/hr Rate/Dose Verify 06/10/2022 2:00 PM CDT 6 mL/hr 6 mL/hr Rate/Dose Verify 06/10/2022 12:00 PM CDT 6 mL/hr 6 mL/h r sodium chloride 0.9% IVPB 0-250 mL 0-250 mL, intravenous, Once, On Mon06/20/22 at 0100, For 1 dose, Prime blood tubing and administer amount needed to clear line (usually 50-100 mL) after transfusion complete. New Bag 06/20/2022 12:58 AM CDT 250 mL 50 mL/hr sodium chloride 0.9% IVPB 0-250 mL 0-250 mL, intravenous, Once, On Mon06/20/22 at 1015, For 1 dose, Prime blood tubing and administer amount needed to clear line (usually 50-100 mL) after transfusion complete. New Bag 06/20/2022 9:53 AM CDT 250 mL sodium chloride 0.9% solution 1,000 mL 1,000 mL, dialysis circuit, As needed, priming dialysis circuit, Starting on Mon06/13/22 at 1241 New Bag 06/15/2022 12:56 AM CDT 1,000 mL sodium chloride 0.9% solution 3-12 mL/hr, intra-catheter, Continuous, Starting on Mon06/07/22 at 1730, Amount needed for invasive pressure monitoring with 300 mg Hg to maintain patency. New Bag 06/14/2022 10:14 AM CDT 3 mL/hr 3 mL/hr sodium chloride 0.9% solution 3-12 mL/hr, intra-catheter, Continuous, Starting on Mon06/07/22 at 1730, Amount needed for invasive pressure monitoring with 300 mg Hg to maintain patency. Rate/Dose Verify 06/20/2022 1:00 AM CDT 3 mL/hr 3 mL/hr Rate/Dose Verify 06/20/2022 12:00 AM CDT 3 mL/hr 3 mL/h r Rate/Dose Verify 06/19/2022 11:00 PM CDT 3 mL/hr 3 mL/h r terazosin (HYTRIN) capsule 2 mg 2 mg, oral, Nightly, First dose on Mon06/05/22 at 2100, On hold since Mon06/07/2022 at 1712 until manually unheld Given 06/06/2022 8:19 PM CDT 2 mg vancomycin (VANCOCIN) 2,000 mg in sodium chloride 0.9% 500 mL IVPB 2,000 mg (rounded from 2,037 mg = 15 mg/kg ? 135.8 kg), intravenous, at 260 mL/hr, Administer over 120 Minutes, Every 24 hours, First dose on Mon06/10/22 at 2330, Indications: SepsisIndications:Sepsis New Bag 06/12/2022 11:15 PM CDT 2,000 mg 260 m L/hr New Bag 06/12/2022 12:01 AM CDT 2,000 mg 260 mL/hr New Bag 06/11/2022 1:00 AM CDT 2,000 mg 260 mL/hr vancomycin 1,750 mg/517.5 mL sodium chloride 0.9% (premix) 1,750 mg 1,750 mg, intravenous, Administer over 120 Minutes, Every 24 hours, First dose (after last modification) on Mon06/14/22 at 0200, Indications: SepsisIndications:Sepsis New Bag 06/17/2022 2:41 AM CDT 1,750 mg New Bag 06/16/2022 2:17 AM CDT 1,750 mg New Bag 06/15/2022 1:41 AM CDT 1,750 mg vasopressin in 5% dextrose (VASOSTRICT) 20 unit/100 mL (0.2 unit/mL) infusion 0-0.06 Units/min (0-18 mL/hr), 0.2 Units/mL, intravenous, Titrated, Starting on Mon06/10/22 at 2345, Until Mon06/12/22 at 0432, Initial rate: 0.01 units/min, Titrate: Up/Down, Titrate by: 0.01 units/min, Every: 5 minutes, Goal: MAP, MAP Goal: 55-65 mmHg, Routine Rate/Dose Change 06/12/2022 4:19 AM CDT 0.03 Units/min 9 mL/hr Rate/Dose Verify 06/12/2022 4:00 AM CDT 0.04 Units/min 12 mL/hr Rate/Dose Verify 06/12/2022 3:00 AM CDT 0.04 Units/min 12 mL/hr vasopressin in 5% dextrose (VASOSTRICT) 20 unit/100 mL (0.2 unit/mL) infusion 0-0.06 Units/min (0-18 mL/hr), 0.2 Units/mL, intravenous, Titrated, Starting on Mon06/12/22 at 0515, Until Mon06/13/22 at 0635, Initial rate: 0.01 units/min, Titrate: Up/Down, Titrate by: 0.01 units/min, Every: 5 minutes, Goal: SBP, SBP Goal: 90-110 mmHg, Routine Rate/Dose Verify 06/12/2022 8:00 AM CDT 0.01 Units/min 3 mL/hr Rate/Dose Verify 06/12/2022 7:00 AM CDT 0.01 Units/min 3 m L/hr Rate/Dose Verify 06/12/2022 6:00 AM CDT 0.01 Units/min 3 m L/hr documented in this encounter Discontinued Medications Medication Sig Discontinue Reason Start Date End Da te hydrALAZINE (APRESOLINE) 100 mg tablet TAKE 1 TABLET BY MOUTH EVERY 8 HOURS Stop Taking at Discharge 10/25/2018 06/29/2022 cloNIDine (CATAPRES) 0.1 mg tablet Take 0.2 mg by mouth every 8 (eight) hours Stop Taking at Discharge 02/24/2018 06/29/2022 furosemide (LASIX) 80 mg tablet Take 80 mg by mouth 2 (two) times a day Stop Taking at Discharge 06/29/2022 colchicine (Colcrys) 0.6 mg tablet Take one tablet po every Monday, Monday and Monday. Stop Taking at Discharge 06/29/2022 amLODIPine (NORVASC) 10 mg tablet Take 10 mg by mouth daily Stop Taking at Discharge 06/29/2022 ranolazine ER (RANEXA) 500 mg 12 hr tablet Take 500 mg by mouth 2 (two) times a day Stop Taking at Discharge 06/29/2022 meloxicam (MOBIC) 7.5 mg tablet Take 7.5 mg by mouth 2 (two) times a day Stop Taking at Discharge 06/29/2022 doxycycline monohydrate (ADOXA) 50 mg tablet Take 50 mg by mouth 2 (two) times a day Stop Taking at Discharge 06/29/2022 UNABLE TO FIND Zalacyclovir take one tablet three times daily Stop Taking at Discharge 06/29/2022 insulin aspart U-100 (NovoLOG) 100 unit/mL cartridge Inject under the skin Basal rate 1200 am to 0500 am 5.25; from 5 am to 8 pm 1.8; from 8pm to 12 am 5.5 Stop Taking at Discharge 06/29/2022 documented as of this encounter Active and Recently Administered Medications Times are shown in SENIOR ART DIRECTOR. Scheduled Medication Order 06/27/2022 06/28/2022 06/29/2022 aspirin chewable tablet 81 mg 81 mg, oral, Daily, First dose (after last modification) on Gregoria 06/23/22 at 0900 0817 (Given - Provider: Manda Lake RN) 0856 (Given - Provider: Manda Lake RN) 0823 (Given - Provider: Manda Lake RN) atorvastatin (LIPITOR) tablet 80 mg 80 mg, oral, Daily, First dose (after last modification) on Gregoria 11/3/22 at 0900 0818 (Given - Provider: Manda Lake RN) 0856 (Given - Provider: Manda Lake RN) 0823 (Given - Provider: Manda Lake RN) calcitRIOL (ROCALTROL) capsule 0.25 mcg 0.25 mcg, oral, Daily, First dose on Mon06/22/22 at 1000 0817 (Given - Provider: Manda Lake RN) 0856 (Given - Provider: Manda Lake RN) 0823 (Given - Provider: Manda Lake RN) calcium acetate(phosphat bind) (PHOSLO) capsule 667 mg 667 mg, oral, 4 times daily, First dose on Mon06/05/22 at 0800, Take with food 0817 (Given - Provider: Manda Lake RN)1208 (Given - Provider: Manda Lake RN)1747 (Given - Provider: Manda Lake RN)2150 (Given - Provider: Sasha Subramanian RN) 0856 (Given - Provider: Manda Lake RN)1258 (Given - Provider: Manda Lake RN)1752 (Given - Provider: Manda Lake RN)2100 (Given - Provider: Radha Paul RN) 0823 (Given - Provider: Manda Lake RN)1234 (Given - Provider: Manda Lake RN) clopidogreL (PLAVIX) tablet 75 mg 75 mg, oral, Daily, First dose (after last modification) on Mon06/23/22 at 0900 0818 (Given - Provider: Manda Lake RN) 0856 (Given - Provider: Manda Lake RN) 0823 (Given - Provider: Manda Lake RN) ezetimibe (ZETIA) tablet 10 mg 10 mg, oral, Daily, First dose (after last modification) on Mon06/23/22 at 0900 0818 (Given - Provider: Manda Lake RN) 0856 (Given - Provider: Manda Lake RN) 0823 (Given - Provider: Manda Lake RN) gentamicin (GARAMYCIN) 0.1 % cream topical, Daily, First dose on Mon06/28/22 at 1245, Apply to peritoneal dialysis catheter exit site daily during dressing change. DO NOT SUBSTITUTE WITH OINTMENT., Apply to affected area: dialysis access site, Indications: Infection Prophylaxis 2004 (Given - Provider: Tequila Ingram RN) 0900 (Due) heparin 5,000 unit/mL injection 5,000 Units 5,000 Units, subcutaneous, Every 8 hours scheduled, First dose on Mon06/22/22 at 1400, Indications: Deep Vein Thrombosis Prevention 0601 (Given - Provider: Mell Wild, RN)1432 (Given - Provider: Mnada Lake, LUAN)2151 (Given - Provider: Sasha Subramanian, RN) 0601 (Given - Provider: Sasha Subramanian, RN)1435 (Given - Provider: Manda Lake, LUAN)2100 (Given - Provider: Radha Paul, RN) 0501 (Given - Provider: Radha Paul, RN)1234 (Given - Provider: Manda Lake RN) insulin glargine (LANTUS, SEMGLEE) 100 unit/mL injection 35 Units (CANCELED) 35 Units, subcutaneous, Every morning, First dose (after last modification) on Mon06/27/22 at 0900, Do not hold if NPO. Do not mix with other insulins, Indications: Diabetes Mellitus 0818 (Given - Provider: Manda Lake RN) insulin lispro (HumaLOG, ADMELOG) 100 unit/mL injection 0-10 Units (CANCELED) 0-10 Units, subcutaneous, 3 times daily with meals, First dose on Mon06/21/22 at 1800, Blood glucose mg/dL: 149 or less: No insulin 150-199: add 2 unit 200-249: add 4 units 250-299: add 6 units 300-349: add 8 units and notify physician for adjustment of insulin orders. 350-399: add 10 units and notify physician for adjustment of insulin orders. Over 400: Notify physician for adjustment of insulin orders. Do NOT hold for NPO Status, Indications: Diabetes Mellitus 0820 (Given - Provider: Manda Lake RN)1208 (Given - Provider: Manda Lake RN) insulin lispro (HumaLOG, ADMELOG) 100 unit/mL injection 0-5 Units (CANCELED) 0-5 Units, subcutaneous, Daily, First dose on Mon06/22/22 at 0930, Blood glucose mg/dL: 149 or less: No insulin 150-199: add 1 unit 200-249: add 2 units 250-299: add 3 units 300-349: add 4 units and notify physician for adjustment of insulin orders. 350-399: add 5 units and notify physician for adjustment of insulin orders. Over 400: Notify physician for adjustment of insulin orders. Do NOT hold for NPO Status 0200 (Given - Provider: Sasha Subramanian, RN) insulin lispro (HumaLOG, ADMELOG) 100 unit/mL injection 10 Units (CANCELED) 10 Units, subcutaneous, 3 times daily with meals, First dose (after last modification) on Mon06/26/22 at 1300, Post-meal if he takes at least 25g of carbs or eats at least 50% of meal 0818 (Given - Provider: Manda Lake RN)1207 (Given - Provider: Manda Lake RN) isosorbide mononitrate ER (IMDUR) extended release tablet 30 mg 30 mg, oral, Daily, First dose on Mon06/24/22 at 1715, Tablets that are scored may be split, but do not crush, chew, dissolve, open or otherwise manipulate tablet/capsule. 0818 (Given - Provider: Manda Lake RN) 0856 (Given - Provider: Manda Lake RN) 0822 (Given - Provider: Manda Lake RN) losartan (COZAAR) tablet 12.5 mg 12.5 mg, oral, Daily, First dose on Mon06/25/22 at 0900 0817 (Given - Provider: Manda Lake RN) 0856 (Given - Provider: Manda Lake RN) 0822 (Given - Provider: Manda Lake RN) metoprolol tartrate (LOPRESSOR) immediate release tablet 25 mg 25 mg, oral, 2 times daily, First dose (after last modification) on 06/27/22 at 0900 0818 (Given - Provider: Manda Lake RN)2150 (Given - Provider: Sasha Subramanian RN) 0856 (Given - Provider: Manda Lake RN)2100 (Given - Provider: Radha Paul, RN) 0822 (Given - Provider: Manda Lake RN) pantoprazole DR (PROTONIX) extended release tablet 40 mg 40 mg, oral, Daily, First dose (after last modification) on Mon06/26/22 at 0900, Do not crush, chew, cut, dissolve, open or otherwise manipulate tablet/capsule., Indications: GI Bleed 0818 (Given - Provider: Manda Lake RN) 0856 (Given - Provider: Manda Lake RN) 0822 (Given - Provider: Manda Lake RN) polyvinyl alcohol-povidone (REFRESH CLASSIC) 1.4-0.6 % ophthalmic solution 1 drop 1 drop, each eye, 4 times daily, First dose on Gregoria 06/16/22 at 2100 0818 (Given - Provider: Manda Lkae RN)1209 (Given - Provider: Manda Lake RN)1747 (Given - Provider: Manda Lake RN)2151 (Given - Provider: Sasha Subramanian RN) 0856 (Given - Provider: Manda Lake RN)1437 (Given - Provider: Manda Lake, LUAN)1752 (Given - Provider: Manda Lake RN)2101 (Given - Provider: Radha Paul RN) 0822 (Given - Provider: Manda Lake RN)1234 (Given - Provider: Manda Lake RN) potassium chloride ER (KLOR-CON) extended release tablet 20 mEq (COMPLETED) 20 mEq, oral, Once, On Mon06/27/22 at 0900, For 1 dose, Do not crush, chew, cut, dissolve, open or otherwise manipulate tablet/capsule. 0857 (Given - Provider: Manda Lake RN) Continuous Medication Order 06/27/2022 06/28/2022 06/29/2022 Dianeal low calcium-dextrose 2.5 % 2,500 mL dialysis solution (CANCELED) intraperitoneal, Continuous, Starting on Mon06/27/22 at 1630, For 24 hours, CCPD bag number: 3, Indications: Peritoneal Dialysis 2006 (New Bag - Provider: Pj Duckworth RN) 0616 (Due: Stopped - Provider: Pj Duckworth RN) Dianeal low calcium-dextrose 2.5 % 2,500 mL dialysis solution (CANCELED) intraperitoneal, Continuous, Starting on Mon06/28/22 at 1245, For 24 hours, CCPD bag number: 3, Indications: Peritoneal Dialysis 2003 (New Bag - Provider: Tequila Ingram RN) 0545 (Due: Stopped - Provider: Tequila Ingram RN) Dianeal low calcium-dextrose 2.5 % 5,000 mL dialysis solution (CANCELED) intraperitoneal, Continuous, Starting on Mon06/27/22 at 1630, For 24 hours, CCPD bag number: 1, Indications: Peritoneal Dialysis 2005 (New Bag - Provider: Pj Duckworth RN) 0616 (Due: Stopped - Provider: Pj Duckworth RN) Dianeal low calcium-dextrose 2.5 % 5,000 mL dialysis solution (CANCELED) intraperitoneal, Continuous, Starting on Mon06/27/22 at 1630, For 24 hours, CCPD bag number: 2, Indications: Peritoneal Dialysis 2005 (New Bag - Provider: Pj Duckworth RN) 0616 (Due: Stopped - Provider: Pj Duckworth RN) Dianeal low calcium-dextrose 2.5 % 5,000 mL dialysis solution (CANCELED) intraperitoneal, Continuous, Starting on Mon06/28/22 at 1245, For 24 hours, CCPD bag number: 1, Indications: Peritoneal Dialysis 2004 (New Bag - Provider: Tequila Ingram RN) 0545 (Due: Stopped - Provider: Tequila Ingram RN) Dianeal low calcium-dextrose 2.5 % 5,000 mL dialysis solution (CANCELED) intraperitoneal, Continuous, Starting on Mon06/28/22 at 1245, For 24 hours, CCPD bag number: 2, Indications: Peritoneal Dialysis 2004 (New Bag - Provider: Tequila Ingram RN) 0545 (Due: Stopped - Provider: Tequila Ingram RN) Extraneal 7.5% AMBU-FLEX 2,500 mL dialysis solution (CANCELED) intraperitoneal, Continuous, Starting on Mon06/27/22 at 1630, For 24 hours, CCPD bag number: 4, Indications: Peritoneal Dialysis 2006 (New Bag - Provider: Pj Duckworth RN) 0616 (Due: Stopped - Provider: Pj Duckworth RN) Extraneal 7.5% AMBU-FLEX 2,500 mL dialysis solution (CANCELED) intraperitoneal, Continuous, Starting on Mon06/28/22 at 1245, For 24 hours, CCPD bag number: 4, Indications: Peritoneal Dialysis 2004 (New Bag - Provider: Tequila Ingram, RN) 0545 (Due: Stopped - Provider: Tequila Ingram RN) INSULIN SUBCUTANEOUS PUMP (HUMALOG) 100 UNITS/ML INSULIN PUMP INFUSION (HumaLOG) patient supplied pump 0-25 Units 0-25 Units, subcutaneous, Continuous, Starting on Mon06/28/22 at 1230, Current pump settings will remain until a [...] Ratio, High Glucose Correction, Basal Rate (units/hr): 1, From (hh:mm): 3:30 AM, To (hh:mm): 8:00 AM, Basal Rate (units/hr): 0.8, From (hh:mm): 8:00 AM, To (hh:mm): 8:00 PM, Basal Rate (units/hr): 5.8, From (hh:mm): 8:00 PM, To (hh:mm): 3:30 AM, Carbohydrate Ratio: 1 unit per how many gm carbohydrate: 6.5, From: (hh:mm): 12:00 AM, To:(hh:mm): 12:00 AM, High Glucose Correction: 1 unit per how many mg/dL over target: 25, From:(hh:mm): 12:00 AM, To:(hh:mm): 12:00 AM, Choose Target (mg/dL): 120, Indications: Diabetes Mellitus 1252 (Self Administered Via Pump - Provider: Manda Lake RN - Comment: BG 287Carbs consumed 49)1537 (Self Administered Via Pump - Provider: Manda Lake RN)1755 (Self Administered Via Pump - Provider: Manda Laek RN)2103 (Hold - Provider: Radha Paul RN - Reason: Patient/family refused) 0827 (Self Administered Via Pump - Provider: Manda Lake RN)1234 (Self Administered Via Pump - Provider: Manda Lake RN) PRN Medication Order 06/27/2022 06/28/2022 06/29/2022 acetaminophen (TYLENOL) tablet 1,000 mg 1,000 mg, oral, Every 6 hours PRN, 1st line for pain, headaches, fever, Starting on Mon06/22/22 at 1930 1747 (Given - Provider: Manda Lake RN)1803 (Not Given - Provider: Manda Lake RN - Reason: Other - Comment: already given) albuterol HFA (PROVENTIL HFA,VENTOLIN HFA,PROAIR HFA) 90 mcg/actuation inhaler 2 puff 2 puff, inhalation, Every 6 hours PRN (socially responsible investment adviser), wheezing, shortness of breath, Starting on Mon06/05/22 at 0229 dextrose (D10W) 10% bolus 250 mL(Linked Group 1) 250 mL, intravenous, at 1,000 mL/hr, Administer over 15 Minutes, Every 15 min PRN, blood glucose less than 70 mg/dL and UNABLE to swallow/take PO glucose/juice., Starting on Mon06/27/22 at 1302, After treatment for hypoglycemia, recheck BG followed by treatment every 15 minutes until the BG is greater than 100 mg/dL. Then check BG 1 hour post treatment. If BG is less than 100 mg/dL, repeat Q15 minute BG checks and treatment. Call MD for each episode of hypoglycemia., Indications: hypoglycemic disorder dextrose 5% water flush 10 mL 10 mL, intra-catheter, As needed, CO measurement, Starting on Tu06/07/22 at 1638, 10 mL volume for each attempt to measure cardiac output. dextrose 5% water flush 10-30 mL 10-30 mL, intra-catheter, As needed, volume as needed for cardiac output measurement unless continuous cardiac output available, Starting on Mon06/07/22 at 1650 dextrose gel in packet 15 g(Linked Group 1) 15 g, oral, Every 15 min PRN, low blood sugar, blood glucose less than 70 mg/dL, Starting on Mon06/27/22 at 1302, If patient is alert and able to [...] each episode of hypoglycemia., Indications: hypoglycemic disorder fluticasone propionate (FLONASE) 50 mcg/actuation nasal spray 2 spray 2 spray, each nostril, 2 times daily PRN, rhinitis, Starting on Mon06/05/22 at 1240 glucagon injection 1 mg 1 mg, intramuscular, Every 30 min PRN, low blood sugar, blood glucose less than 70 mg/dL AND no IV access AND unable to take PO glucose/juice., Starting on Mon06/27/22 at 1302, After Glucagon is administered, position patient on [...] 1 mL SWFI. Use immediately following reconstitution. insulin lispro (HumaLOG, ADMELOG) 100 unit/mL injection 4 Units 4 Units, subcutaneous, Once as needed, other, insulin pump not functional, Starting on Mon06/27/22 at 1302, For 1 dose, Administer back up dose if insulin pump is not functional. Call MD for alternate insulin regimen., Indications: Diabetes Mellitus lidocaine (LIDODERM) 5 % patch 1 patch 1 patch, transdermal, Administer over 12 Hours, Daily PRN, 2nd line for pain, Starting on Mon06/05/22 at 0413, Do not cover the holes on the top side of the patch., Apply to affected area: back nitroglycerin (NITROSTAT) sublingual tablet 0.4 mg 0.4 mg, sublingual, Every 5 min PRN, chest pain, Starting on Mon06/23/22 at 1358, May administer up to 3 doses per episode. ondansetron (ZOFRAN) injection 4 mg(Linked Group 2) 4 mg, intravenous, Administer over 2 Minutes, Every 6 hours PRN, nausea, vomiting, if not tolerating PO, Starting on Mon06/08/22 at 0919, Indications: Nausea and Vomiting ondansetron ODT (ZOFRAN-ODT) disintegrating tablet 4 mg(Linked Group 2) 4 mg, feeding tube, Every 6 hours PRN, nausea, vomiting, Starting on Mon06/08/22 at 0919, Indications: Nausea and Vomiting ramelteon (ROZEREM) tablet 8 mg 8 mg, feeding tube, Nightly PRN, sleep, Starting on Mon06/08/22 at 0919, Indications: Sleep-Onset Insomnia Linked Groups Order Group 1: dextrose gel in packet 15 gJump to med 15 g, oral, Every 15 min PRN, low blood sugar, blood glucose less than 70 mg/dL, Starting on Mon06/27/22 at 1302, If patient is alert and able to [...] each episode of hypoglycemia., Indications: hypoglycemic disorder Or dextrose (D10W) 10% bolus 250 mLJump to med 250 mL, intravenous, at 1,000 mL/hr, Administer over 15 Minutes, Every 15 min PRN, blood glucose less than 70 mg/dL and UNABLE to swallow/take PO glucose/juice., Starting on Mon06/27/22 at 1302, After treatment for hypoglycemia, recheck BG followed by treatment every 15 minutes until the BG is greater than 100 mg/dL. Then check BG 1 hour post treatment. If BG is less than 100 mg/dL, repeat Q15 minute BG checks and treatment. Call MD for each episode of hypoglycemia., Indications: hypoglycemic disorder Group 2: ondansetron ODT (ZOFRAN-ODT) disintegrating tablet 4 mgJump to med 4 mg, feeding tube, Every 6 hours PRN, nausea, vomiting, Starting on Mon06/08/22 at 0919, Indications: Nausea and Vomiting Or ondansetron (ZOFRAN) injection 4 mgJump to med 4 mg, intravenous, Administer over 2 Minutes, Every 6 hours PRN, nausea, vomiting, if not tolerating PO, Starting on Mon06/08/22 at 0919, Indications: Nausea and Vomiting documented in this encounter Orders Medications Ordered That Pablo ht Not Have Been Administered Count Last Ordered Date First Ordered Date dextrose (D10W) 10% bolus 250 mL 8 06/27/20 22 06/05/2022 dextrose gel in packet 15 g 8 06/27/2022 06/05/2022 gentamicin (GARAMYCIN) 0.1 % cream 3 202106/04/2022 glucagon injection 1 mg 8 06/27/202205/21 insulin lispro (HumaLOG, ADM ELOG) 100 unit/mL injection 4 Units 1 06/27/2022 insulin NPH (HumuLIN N, Abel JAYA N) 100 unit/mL injection 45 Units 1 06/27/2022 INSULIN PUMP REFILL lispro ( HumaLOG, ADMELOG) solution 300 Units 1 06/27/2022 INSULIN SUBCUTANEOUS PUMP (H UMALOG) 100 UNITS/ML INSULIN PUMP INFUSION (HumaLOG) patient supplied pump 0-25 Units 1 06/27/2022 metoprolol tartrate (LOPRESS OR) immediate release tablet 25 mg 1 06/26/2022 insulin glargine (LANTUS, SE MGLEE) 100 unit/mL injection 28 Units 1 06/23/2022 insulin glargine (LANTUS, SE MGLEE) 100 unit/mL injection 30 Units 2 06/23/2022 06/18/2022 insulin lispro (HumaLOG, ADM ELOG) 100 unit/mL injection 6 Units 2 06/23/2022 06/18/2022 insulin lispro (HumaLOG, ADM ELOG) 100 unit/mL injection 8 Units 1 06/23/2022 nitroglycerin (NITROSTAT) diego blingual tablet 0.4 mg 1 06/23/2022 acetaminophen (TYLENOL) tablet 650 mg 1 09/2021 Dianeal low calcium-dextrose 2.5 % 2,500 mL dialysis solution 6 06/22/2022 06/04/2022 Dianeal low calcium-dextrose 2.5 % 5,000 mL dialysis solution 6 06/22/2022 06/04/2022 Extraneal 7.5% AMBU-FLEX 2,5 00 mL dialysis solution 2 06/22/2022 06/15/2022 heparin 25 Units/mL in dextr ose 5% 500 mL Impella purge fluid 1 06/22/2022 heparin in 0.9% sodium chlor deana 25,000 unit/250 mL infusion (premix) 3 06/22/2022 06/07/2022 Dianeal low calcium-dextrose 1.5 % 2,500 mL dialysis solution 2 06/21/2022 06/05/2022 potassium, sodium phosphates (PHOS-NAK) 280-160-250 mg packet 1 packet 1 06/20/2022 vasopressin in 5% dextrose ( VASOSTRICT) 20 unit/100 mL (0.2 unit/mL) infusion - ADS Override Pull 1 06/20/2022 amiodarone (NEXTERONE) 150 m g/100 mL (1.5 mg/mL) in dextrose (premix) 150 mg 1 06/19/2022 dextrose 5% infusion 9 06/19/2022 022 insulin regular bolus from bag 4-10 Units 7 06/19/2022 06/07/2022 insulin regular bolus from bag 4-6 Units 6 06/19/2022 06/08/2022 insulin regular in 0.9% sodi um chloride (MYXREDLIN) 100 unit/100 mL (1 unit/mL) infusion (premix) 4 06/19/2022 06/07/2022 magnesium sulfate 2 g/50 mL in water (premix) 2 g 2 06/19/2022 06/07/2022 insulin glargine (LANTUS, SE MGLEE) 100 unit/mL injection 33 Units 2 06/18/2022 06/08/2022 sodium chloride 0.9% solution 1,000 mL 3 06/07/2022 vancomycin (VANCOCIN) 2,000 mg in sodium chloride 0.9% 500 mL IVPB 1 06/18/2022 sodium chloride 0.9% IVPB 0-250 mL 2 202106/07/2022 insulin glargine (LANTUS, SE MGLEE) 100 unit/mL injection 40 Units 1 06/16/2022 insulin lispro (HumaLOG, ADM ELOG) 100 unit/mL injection 10 Units 1 06/16/2022 insulin NPH (HumuLIN N, Abel JAYA N) 100 unit/mL injection 15 Units 1 06/16/2022 insulin regular (HumuLIN R, NovoLIN R) 100 unit/mL injection 3 Units 1 06/16/2022 midazolam (VERSED) 1 mg/mL injection 2 mg 1 06/15/2022 perflutren protein-a (OPTISO N) 0.22 mg/mL injection - ADS Override Pull 1 06/14/2022 phenylephrine (JONN-SYNEPHRIN E) 1 mg/10 mL (100 mcg/mL) in sodium chloride 0.9% (premix) - ADS Override Pull 1 06/14/2022 vancomycin 1,750 mg/517.5 mL sodium chloride 0.9% (premix) 1,750 mg 1 06/14/2022 vancomycin 750 mg/257.5 mL i n sodium chloride 0.9% (premix) 750 mg 1 06/14/2022 heparin 1,000 unit/mL inject ion 2,000 Units 2 06/13/2022 06/05/2022 heparin 1,000 unit/mL inject ion 3,000 Units 1 06/13/2022 insulin lispro (HumaLOG, ADM ELOG) 100 unit/mL injection 5 Units 1 06/12/2022 bumetanide (BUMEX) 0.25 mg/mL infusion 1 bumetanide (BUMEX) 0.25 mg/m L injection 4 mg 1 06/11/2022 heparin 1,000 unit/mL injection 1.5-6.9 mL 1 06/11/2022 epoprostenol (VELETRI) 20 mc g/ml in 0.9% sodium chloride inhalation solution 2 06/10/202205/22 fentaNYL (SUBLIMAZE) preserv ative free injection 2 06/10/2022 06/07/2022 lidocaine (XYLOCAINE) 10 mg/ mL (1 %) injection 1 06/10/2022 polyethylene glycol (MIRALAX) packet 17 g 4 06/10/2022 06/05/2022 senna (SENOKOT) tablet 1 tablet 1 2 vasopressin 20 unit/mL injec tion - ADS Override Pull 1 06/10/2022 DOPamine in dextrose 5% 400 mg/250 mL (1,600 mcg/mL) infusion (premix) - ADS Override Pull 1 06/09/2022 calcitRIOL (ROCALTROL) capsule 0.25 mcg 1 1 docusate sodium (COLACE) capsule 100 mg 1 1 ondansetron (ZOFRAN) injection 4 mg 2 06/0806/05/2022 ondansetron ODT (ZOFRAN-ODT) disintegrating tablet 4 mg 2 06/08/2022 06/05/2022 perflutren protein-a (OPTISO N) 3 mL in sodium chloride 0.9% 8 mL syringe 1 06/08/2022 aspirin chewable tablet 162 mg 1 06/07/2022 bisacodyL (DULCOLAX) suppository 10 mg 1 bisacodyl EC (DULCOLAX EC) tablet 10 mg 1 1 dextrose 5% water flush 10 mL 1 06/07/2022 dextrose 5% water flush 10-30 mL 1 06/07/20 EPINEPHrine 2 mg in sodium c hloride 0.9% 100 mL (0.02 mg/mL) infusion 1 06/07/2022 fentaNYL (SUBLIMAZE) preserv ative free injection 50 mcg 2 06/07/2022 heparin 1,000 unit/mL injection 1 hydrALAZINE (APRESOLINE) tablet 100 mg 1 insulin regular (HumuLIN R, NovoLIN R) 100 unit/mL injection 5 Units 1 06/07/2022 insulin regular (HumuLIN R, NovoLIN R) 100 unit/mL injection 7 Units 2 06/07/2022 06/05/2022 insulin regular (HumuLIN R, NovoLIN R) 100 unit/mL injection 8 Units 1 06/07/2022 ioversoL (OPTIRAY 350) injection 1 06/07/20 lidocaine EPINEPHrine (XYLOC WILSON with EPI) 0.5 %-1:200,000 injection 10 mL 1 06/07/2022 metoprolol tartrate (LOPRESS OR) immediate release tablet 12.5 mg 1 06/07/2022 midazolam (VERSED) 1 mg/mL p reservative free injection 1 06/07/2022 norepinephrine in dextrose 5 % (LEVOPHED) 8,000 mcg/250 mL (32 mcg/mL) infusion (premix) 1 06/07/2022 phenylephrine (JONN-SYNEPHRIN E) 0.5 mg/5 mL (100 mcg/mL) in sodium chloride 0.9% (premix) 1 06/07/2022 potassium chloride 20 mEq/50 mL in sterile water (premix) 20 mEq 1 06/07/2022 potassium chloride 40 mEq/10 0 mL in sterile water (premix) 40 mEq 1 06/07/2022 potassium chloride ER (KLOR- CON) extended release tablet 60 mEq 1 06/07/2022 sodium chloride 0.45% infusion 1 06/07/2022 sodium chloride 0.9% infusion 1 06/07/2022 sodium chloride 0.9% solution 1 06/07/2022 atorvastatin (LIPITOR) tablet 40 mg 1 06/05 bumetanide (BUMEX) tablet 4 mg 1 06/05/2022 cloNIDine (CATAPRES) tablet 0.3 mg 1 2021 colchicine (COLCRYS) tablet 0.6 mg 1 2021 famotidine (PEPCID) tablet 10 mg 1 06/05/20 fluticasone propionate (FLON ASE) 50 mcg/actuation nasal spray 2 spray 1 06/05/2022 furosemide (LASIX) 10 mg/mL injection - ADS Override Pull 1 06/05/2022 furosemide (LASIX) 10 mg/mL injection 240 mg 1 06/05/2022 gemfibroziL (LOPID) tablet 600 mg 1 022 insulin lispro (HumaLOG, ADM ELOG) 100 unit/mL injection 0-5 Units 1 06/05/2022 insulin regular (HumuLIN R, NovoLIN R) 100 unit/mL injection 4 Units 1 06/05/2022 lidocaine (LIDODERM) 5 % patch 1 patch 1 metOLazone (ZAROXOLYN) tablet 5 mg 1 2021 metoprolol (LOPRESSOR) tablet 100 mg 1 05/21 phenoL (CHLORASEPTIC) 1.4 % oral spray 1 spray 1 06/05/2022 ramelteon (ROZEREM) tablet 8 mg 1 Extraneal 7.5% ULTRABAG 2,00 0 mL dialysis solution 1 06/04/2022 Lab Orders Without Results Count Last Ordered D ate First Ordered Date POCT GLUCOSE DEVICE 159 06/29/2022 06/04/20 BETA-HYDROXYBUTYRATE 3 06/16/2022 022 RESPIRATORY PATHOGEN PANEL 2 06/15/2022 1 LACTATE, WHOLE BLOOD 2 06/10/2022 022 MAGNESIUM 1 06/09/2022 PHOSPHORUS 1 06/09/2022 FERRITIN 1 06/07/2022 FOLATE 1 06/07/2022 HAPTOGLOBIN 1 06/07/2022 IRON PROFILE W/ IBC 1 06/07/2022 LACTATE DEHYDROGENASE 1 06/07/2022 POTASSIUM, WHOLE BLOOD 1 06/07/2022 RETICULOCYTES 1 06/07/2022 VITAMIN B12 1 06/07/2022 LIPID PANEL 1 06/05/2022 Imaging Orders Without Results Count Last Order ed Date First Ordered Date CHEST PHYSIO THERAPY 4 06/18/2022 022 EKG Orders Without Results Count Last Ordered D ate First Ordered Date ECG 12-LEAD 9 06/22/2022 06/05/2022 Nursing Count Last Ordered Date First Orde red Date TELEMETRY MONITORING 1 06/22/2022 NURSING COMMUNICATION 2 06/18/20222021 PROVIDE EQUIPMENT / SUPPLIES AT BEDSIDE 2 1 WEIGH PATIENT 3 06/05/2022 06/04/2022 Consult Count Last Ordered Date First Orde red Date IP CONSULT TO PULMONOLOGY 1 06/09/2022 IP CONSULT TO CARDIOLOGY 1 06/06/2022 IP CONSULT TO GENERAL SURGERY 1 06/06/2022 CONSULT TO ENDOCRINOLOGY DIABETES 1 022 IP CONSULT TO SOCIAL WORK 2 06/05/2022 IP CONSULT TO NEPHROLOGY 1 06/04/2022 Isolation Count Last Ordered Date First Orde red Date INITIATE DROPLET ISOLATION 1 06/05/2022 Dialysis Count Last Ordered Date First Orde red Date CONTINUOUS CYCLIC PERITONEAL DIALYSIS (CCPD) 1 06/24/2022 Admission Count Last Ordered Date First Orde red Date ADMIT TO INPATIENT 1 06/04/2022 Transfer Count Last Ordered Date First Orde red Date TRANSFER PATIENT TO NEW UNIT 2 06/22/2022 06/07/2022 Discharge Count Last Ordered Date First Orde red Date DISCHARGE PATIENT 1 06/29/2022 CORE MEASURES Count Last Ordered Date First Ord ered Date REASON FOR NO VTE PROPHYLAXIS AT ADMISSION 5 06/22/2022 06/05/2022 Case Request Count Last Ordered Date First Orde red Date CASE REQUEST ATTENDING PHYSICIAN 1 06/10/2022 ADT Patient Update Count Last Ordered Date Firs t Ordered Date PROVIDER TREATMENT TEAM 1 06/04/2022 documented in this encounter Additional Health Concerns Infection Onset Date Last Indicated Resolved Time COVID: Suspected 06/08/2022 06/08/2022 06/08/2022 10:14 PM CDT COVID: Suspected 06/15/2022 06/15/2022 06/15/2022 1:03 PM CDT documented as of this encounter Care Teams Technical Healthcare Consultant Relationship Specialty Start Date End Date Aditya Castro MD [address] [facility] [place] [address] PCP - General 10/17/19 documented as of this encounter
--- OUTSIDE RECORDS SUMMARY | 2024-08-18 13:11 | XMS_ITS | Encounter Summary ---
Author Organization [facility] Address [address] [place] [address] Phone Care Team Providers Care Assistant Professor Of History Name Role Phone Aditya Castro MD Primary Care Provider [phone] Reason for Visit * Reason Onset Date Comments NEW CONSULT 06/23/2022 Encounter Details Date Type Department Care Team (Late st Contact Info) Description 06/23/[address] 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 HUNG BRITO CALLER'S PAGER: [phone] PATIENT'S NAME: Juvenal Daigle Jr. : 1970 CAMPUS: [facility] PATIENT'S LOCATION: [address] [place] [address] REASON FOR CONSULT: CP & POST CATH ATTENDING PHYSICIAN: DR. BRITO documented in this encounter Plan of Treatment Not on file documented as of this encounter Visit Diagnoses Not on filedocumented in this encounter Care Teams Assistant Professor Of History Relationship Specialty Start Date End Date Aditya Castro MD [address] [facility] [place] [address] PCP - General 10/17/19 documented as of this encounter
--- OUTSIDE RECORDS SUMMARY | 2024-08-18 13:14 | XMS_ITS | Encounter Summary ---
Author Organization 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 - 06/06/2022 12:29 PM CDT ELMA & * Telephone Encounter - Kalyn Saba - 06/06/2022 12:22 PM CDT CARDIOLOGY CONSULT 06/06/2022 RECEIVED BY: Kalyn Saba TYPE OF CONSULT: general CALLER'S NAME:[facility] CALLER'S PAGER:[phone] PATIENT'S NAME: Juvenal Daigle Jr. : 1970 CAMPUS: [facility] PATIENT'S LOCATION:[facility] REASON FOR CONSULT: N-STEMI ATTENDING PHYSICIAN: Vincenzo Akers Note: Interventional cardiology is aware of patient documented in this encounter Plan of Treatment Not on file documented as of this encounter Visit Diagnoses Not on filedocumented in this encounter Care Teams Glass Unloading Equipment Tender Relationship Specialty Start Date End Date Aditya Castro MD [address] [facility] [place] [address] PCP - General 10/17/19 documented as of this encounter
--- OUTSIDE RECORDS SUMMARY | 2024-08-18 13:14 | XMS_ITS | Encounter Summary ---
Author Organization [facility] Address [address] [facility] [address] [place] [address] Care Team Providers Care Plastic Fixture Builder Name Role Phone Aditya Castro MD Primary Care Provider [phone] Encounter Details Date Type Department Care Team (Late st Contact Info) Description 02/03/2020 Orders Only [facility] Cardiology [address] [facility] [address] [facility] [address] [place] [address] Licha Hay, ROBERTO [address] [facility] [address] [place] [address] Social History Tobacco Use Types Packs/Day Years Used Date Smoking Tobacco: Never Smokeless Tobacco: Former Alcohol Use Standard Drinks/Week Comments No 0 (1 standard drink = 0.6 oz pur e alcohol) Sex and Gender Information Value Date Recorded Sex Assigned at Not on file 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 Gender Identity Not on file Sexual Orientation Not on file documented as of this encounter Plan of Treatment Not on file documented as of this encounter Procedures Procedure Name Priority Date/Time Associated Diagnosis Comments CARDIOLOGY DOCUMENT SCAN Routine 02/03/2020 documented in this encounter Results * SCAN - CARDIOLOGY (02/03/2020) Anatomical Region Laterality Modality Other Licha Hay NP CV CARDIAC SERVICES PROCEDURES F inal Result documented in this encounter Visit Diagnoses Not on filedocumented in this encounter Care Teams Plastic Fixture Builder Relationship Specialty Start Date End Date Aditya Castro MD [address] [facility] [place] [address] PCP - General 10/17/19 documented as of this encounter
--- OUTSIDE RECORDS SUMMARY | 2024-08-18 13:14 | XMS_ITS | Encounter Summary ---
Author Organization [facility] Healthcare Address [address] [place] [address] Care Team Providers Care Boring Machine Set Up Operator Jig Name Role Phone Aditya Castro MD Primary Care Provider [phone] Encounter Details Date Type Department Care Team (Late st Contact Info) Description 10/17/2019 9:05 AM SHIP JOINER Hospital Encounter [facility] Saulo Dockery MD [address] [id number] Social History Tobacco Use Types Packs/Day Years Used Date Smoking Tobacco: Never Smokeless Tobacco: Former Alcohol Use Standard Drinks/Week Comments No 0 (1 standard drink = 0.6 oz pur e alcohol) Sex and Gender Information Value Date Recorded Sex Assigned at Not on file Legal Sex Male 3:42 AM SHIP 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 1 carvedilol (COREG) 25 mg tablet TAKE 1 TABLET BY MOUTH EVERY 12 HOURS 360 tablet 1 09/10/2018 1 cholecalciferol (VITAMIN D-3) 2,000 unit capsule Take 2,000 Units by mouth daily. 1 cloNIDine (CATAPRES) 0.1 mg tablet Take 0.1 mg by mouth 2 (two) times a day. 1 cloNIDine (CATAPRES) 0.1 mg tablet Take 0.2 mg by mouth every 8 (eight) hours 02/24/2018 2 clopidogrel (PLAVIX) 75 mg tablet TAKE 1 TABLET BY MOUTH DAILY 90 tablet 01/28/2019 4 colchicine (COLCRYS) 0.6 mg tabletIndications: as needed for pain Take 0.6 mg by mouth 2 (two) times a day. 1 doxycycline (VIBRAMYCIN) 100 mg capsule Take 100 mg by mouth 2 (two) times a day. 1 ELIQUIS 5 mg tablet TAKE 1 TABLET(5 MG) BY MOUTH TWICE DAILY 180 tablet 2 11/20/2017 1 febuxostat (ULORIC) 40 mg tablet Take 40 mg by mouth daily. 1 furosemide (LASIX) 40 mg tablet TAKE 1 TABLET BY MOUTH TWICE DAILY 60 tablet 5 07/18/2018 1 hydrALAZINE (APRESOLINE) 100 mg tablet TAKE 1 TABLET BY MOUTH EVERY 8 HOURS 90 tablet 5 10/25/2018 2 insulin glargine (LANTUS) 100 unit/mL injection Inject under the skin nightly. 1 insulin lispro (HumaLOG) 100 unit/mL injection Inject under the skin 3 (three) times a day before meals. 1 isosorbide mononitrate ER (IMDUR) 30 mg 24 hr tablet TAKE 1 TABLET BY MOUTH EVERY DAY 90 tablet 12/24/2018 4 isosorbide mononitrate ER (IMDUR) 60 mg 24 hr tablet TAKE 1 TABLET BY MOUTH EVERY MORNING 90 tablet 2 12/21/2018 1 predniSONE (DELTASONE) 10 mg tabletIndications: Gout Take 4 tab per day x 5 days, then 3 tabs per day x 5 days, then 2 tabs per day x 5 days, then 1 tab per day x 5 days 50 tablet 1 03/22/2018 1 raNITIdine (ZANTAC) 300 mg tablet Take 300 mg by mouth 2 (two) times a day. 1 simvastatin (ZOCOR) 40 mg tablet Take 40 mg by mouth nightly. 1 terazosin (HYTRIN) 2 mg capsule TAKE 1 CAPSULE(2 MG) BY MOUTH EVERY NIGHT 90 capsule 12/24/2018 1 documented as of this encounter Plan of Treatment Not on file documented as of this encounter Procedures Procedure Name Priority Date/Time Associated Diagnosis Comments BASIC METABOLIC PANEL Routine 10/17/2019 10:42 AM SHIP JOINER XR CHEST PA LATERAL 2 VIEWS 10/17/2019 12:00 AM SHIP JOINER documented in this encounter Results * (ABNORMAL) Basic metabolic panel (10/17/2019 10:42 AM SHIP JOINER) Sodium 140 135 - 145 mmol/L [facility] Potassium 4.5 3.3 - 5.1 mmol/L [facility] Chloride 101 96 - 108 mmol/L [facility] Carbon Dioxide 25 22 - 32 mmol/L [facility] Anion Gap 14 7 - 16 [facility] Glucose 189(H) 70 - 100 mg/dL [facility] BUN 94(H) 8 - 25 mg/dL [facility] Creatinine 4.7(H) 0.5 - 1.3 mg/dL [facility] Comment: NOTE: Estimated GFR (Cockroft-Gault) will NOT be calculated unless patient Height and Weight were entered. Also, Kidney Disease Stage (GFR) and Estimated GFR (Cockroft-Gault) will NOT be calculated if Creatinine result is <0.2. Kidney Disease Stage <15 mL/MIN [facility] Comment: NOTE; ??The GFR is an estimated value using the creatinine, sex, age, and race of the patient. THE Estimated Kidney Disease GFR is validated for AGES 18-70 YEARS STAGE ?mL/Min ?DESCRIPTION ??1 ?90 mL/min or more ?Normal or elevated GFR ??2 ? 60-89 mL/min ?Mildly decreased GFR ??3 ? 30-59 mL/min ?Moderately decreased GFR ??4 ? 15-29 mL/min ?Severely decreased GFR ??5 ? <15 mL/min ? Kidney failure or on dialysis Calcium 9.1 8.6 - 10.3 mg/dL [facility] 10/17/2019 10:4 2 AM SHIP JOINER 10/17/2019 10:55 AM SHIP JOINER Narrative Resulting Agency Comment CLI us Lorne Mustafa MD LAB BLOOD ORDERABLES Final Re sult [place] [id number] [place] [address], [facility] [phone] * XR Chest Pa Lateral 2 Views (10/17/2019 12:00 AM SHIP JOINER) Anatomical Region Laterality Modality Body, Chest N/A Radiographic Toma ging 10/17/2019 4:10 PM SHIP JOINER Narrative 10/17/2019 4:11 PM SHIP JOINER Patient Name: JUVENAL GARVIN JR ?Ordering Dr: Lorne Mustafa MD ?? D.O.B: 1970 ? Exam Date: 10/17/ ?? 0000 ?? Age: 49 ?Sex: Male ? MR#: [id number] ?? Loc: ? RADIOLOGY REPORT ?? Order #[id number] ?? Radiology ? Chest 2 Views ? Signed ? EXAM DESCRIPTION: ??Chest 2 Views ? REASON FOR STUDY: ??Preoperative evaluation for peritoneal dialysis catheter ?? insertion. ? TECHNIQUE: ??Frontal and lateral radiographic views of the chest acquired. ? COMPARISON: ??None ? FINDINGS: ? LUNGS/PLEURA: Demonstrated the presumably scarring or. ??There no ?? consolidation. ??There is no effusion or. ? HEART/MEDIASTINUM: Cardiac silhouette and mediastinal contours are within ?? limits. ? HARDWARE/LINES/TUBES: None. ? BONES: No acute findings. ? OTHER: No other significant finding. ? IMPRESSION: ??No acute cardiopulmonary abnormality. ? THIS IS AN ELECTRONICALLY VERIFIED FINAL REPORT ?? 10/17/2019 4:11 PM - Electronically signed by Cherelle Berrios M.D. ?? Cherelle Berrios M.D. ? TB: TB ?? D: ??10/17/2019 4:11 PM ?? T: ??10/17/2019 4:11 PM ? Report ID: [id number] ?? Reading Location: ??[id number] ? REPORT ELECTRONICALLY SIGNED IN OTHER VENDOR SYSTEM ?? Resulting Agency Comment O Procedure Note Cherelle Berrios MD - 10/17/2019 Patient Name: JUVENAL GARVIN Dr: Lorne Mustafa MD D.O.B: 1970 Exam Date: 10/17/19 0000 Age: 49 Sex: Male MR#: [id number] Loc: RADIOLOGY REPORT Order #[id number] Radiology Chest 2 Views Signed EXAM DESCRIPTION: Chest 2 Views REASON FOR STUDY: Preoperative evaluation for peritoneal dialysiscatheter insertion. TECHNIQUE: Frontal and lateral radiographic views of the chest acquired. COMPARISON: None FINDINGS: LUNGS/PLEURA: Demonstrated the presumably scarring or. There no consolidation. There is no effusion or. HEART/MEDIASTINUM: Cardiac silhouette and mediastinal contours are within limits. HARDWARE/LINES/TUBES: None. BONES: No acute findings. OTHER: No other significant finding. IMPRESSION: No acute cardiopulmonary abnormality. THIS IS AN ELECTRONICALLY VERIFIED FINAL REPORT 10/17/2019 4:11 PM - Electronically signed by Cherelle Berrios M.D. TB: TB Report ID: [id number] Reading Location: [place] [address] REPORT ELECTRONICALLY SIGNED IN OTHER VENDOR SYSTEM us Lorne Mustafa MD IMG XR PROCEDURES Final Resul t documented in this encounter Visit Diagnoses Not on filedocumented in this encounter Care Teams Boring Machine Set Up Operator Jig Relationship Specialty Start Date End Date Aditya Castro MD [address] [place] [address] [place] [address] PCP - General 10/17/19 documented as of this encounter
--- OUTSIDE RECORDS SUMMARY | 2024-08-18 13:14 | XMS_ITS | Encounter Summary ---
Author Organization [facility] Address [address] [place] [address] Care Team Providers Care Transactional Paralegal Name Role Phone Aditya Castro MD Primary Care Provider [phone] Encounter Details Date Type Department Care Team (Late st Contact Info) Description 02/01/2020 Orders Only [facility] Cardiology [address] [place] [phone] Carrington Weeks MD [facility] [place] [id number] Social History Tobacco Use Types Packs/Day Years Used Date Smoking Tobacco: Never Smokeless Tobacco: Former Alcohol Use Standard Drinks/Week Comments No 0 (1 standard drink = 0.6 oz pur e alcohol) Sex and Gender Information Value Date Recorded Sex Assigned at Not on file 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 Gender Identity Not on file Sexual Orientation Not on file documented as of this encounter Plan of Treatment Not on file documented as of this encounter Procedures Procedure Name Priority Date/Time Associated Diagnosis Comments CARDIOLOGY DOCUMENT SCAN Routine 02/01/2020 documented in this encounter Results * SCAN - CARDIOLOGY (02/01/2020) Anatomical Region Laterality Modality Other Carrington Weeks MD [facility] Final Result documented in this encounter Visit Diagnoses Not on filedocumented in this encounter Care Teams Transactional Paralegal Relationship Specialty Start Date End Date Aditya Castro MD [address] [place] [address] PCP - General 10/17/19 documented as of this encounter
--- OUTSIDE RECORDS SUMMARY | 2024-08-18 13:14 | XMS_ITS | Encounter Summary ---
Author Organization [facility] Address [address] [place] [address] Care Team Providers Care Parts Classifier Name Role Phone Eugenia Hughes MD Primary Care Provider [phone] Encounter Details Date Type Department Care Team (Late st Contact Info) Description 09/10/2019 Orders Only [facility] Cardiology [address] [facility] [address] [place] [phone] Luís Arizmendi MD [address] [place] [id number] Social History Tobacco Use Types Packs/Day Years Used Date Smoking Tobacco: Never Smokeless Tobacco: Former Alcohol Use Standard Drinks/Week Comments No 0 (1 standard drink = 0.6 oz pur e alcohol) Sex and Gender Information Value Date Recorded Sex Assigned at Not on file Legal 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 Gender Identity Not on file Sexual Orientation Not on file documented as of this encounter Plan of Treatment Not on file documented as of this encounter Procedures Procedure Name Priority Date/Time Associated Diagnosis Comments CARDIOLOGY DOCUMENT SCAN Routine 09/10/2019 documented in this encounter Results * SCAN - CARDIOLOGY (09/10/2019) Anatomical Region Laterality Modality Other Luís Arizmendi MD [facility] PROCEDURES F inal Result documented in this encounter Visit Diagnoses Not on filedocumented in this encounter Care Teams Parts Classifier Relationship Specialty Start Date End Date Eugenia Hughes MD PCP - General Family Practice 04/19/18 10/16/19 documented as of this encounter
--- OUTSIDE RECORDS SUMMARY | 2024-08-18 13:14 | XMS_ITS | Encounter Summary ---
Author Organization [facility] Address [address] [place] [address] Phone Care Team Providers Care Lining Machine Operator Name Role Phone Jhonatan Bellamy MD Primary Care Provider [phone] Encounter Details Date Type Department Care Team (Late st Contact Info) Description 04/03/2018 Telephone [facility] Rheumatology [address] [facility] [address] [place] [address] [place] [address] Evangelista Sifuentes LPN Social History Tobacco Use Types Packs/Day Years Used Date Smoking Tobacco: Never Smokeless Tobacco: Former Alcohol Use Standard Drinks/Week Comments No 0 (1 standard drink = 0.6 oz pur e alcohol) Sex and Gender Information Value Date Recorded Sex Assigned at Not on file 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 We reached this patient and gave him the number to [facility]. We also made him aware we are working on a pre-cert for his meds. Thanks! * Telephone Encounter - Karina Johnson MD - 04/05/2018 11:28 AM CDT Couldn't reach him - [facility] takes his insurance as we discussed. Was he able to get an appointment there? * Telephone Encounter - Evangelista Sifuentes LPN - 04/03/2018 11:12 AM CDT Hey, I spoke with this patient. He said he has been without his medications for 2 months. He has switched his insurance to [employer] which we don't accept (he is aware). We have sent a message to [facility] if we can get his medication approved. He said he has been having a lot of pain due to his lackof medication. documented in this encounter Plan of Treatment Not on file documented as of this encounter Visit Diagnoses Not on filedocumented in this encounter Care Teams Lining Machine Operator Relationship Specialty Start Date End Date Jhonatan Bellamy MD [address] [place] [address] PCP - General 03/25/15 04/16/18 documented as of this encounter
--- OUTSIDE RECORDS SUMMARY | 2024-08-18 13:14 | XMS_ITS | Encounter Summary ---
Author Organization [facility] Address [address] [facility] [address] [place] [address] Care Team Providers Care Hvac Project Engineer Name Role Phone Jhonatan Bellamy MD Primary Care Provider [phone] Reason for Visit * Reason Comments Coronary Artery Disease Chronic Kidney Disease one mo f/u Encounter Details Date Type Department Care Team (Late st Contact Info) Description 12/14/2017 11:45 AM CDT Office Visit [facility] [address] [address] Abelardo Petit MD [address] [facility] [address] [id number] 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[place] artery of [place] heart with stable angina pectoris (CMS/HCC) (Primary Dx); History of coronary artery stent placement Social History Tobacco Use Types Packs/Day Years Used Date Smoking Tobacco: Never Smokeless Tobacco: Former Alcohol Use Standard Drinks/Week Comments No 0 (1 standard drink = 0.6 oz pur e alcohol) Sex and Gender Information Value Date Recorded Sex Assigned at Not on file 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 Gender Identity Not on file Sexual Orientation Not on file documented as of this encounter Last Filed Vital Signs Vital Sign Reading Time Taken Comments Blood Pressure 130/50 12/14/2017 12:01 PM CDT Pulse 60 12/14/2017 12:01 PM CDT Temperature - - Respiratory Rate - - Oxygen Saturation 98% 12/14/2017 12:01 PM CDT Inhaled Oxygen Concentration - - Weight 121.6 kg (268 lb) 12/14/2017 12:01 PM CDT Height 177.8 cm (5' 10 ) 12/14/2017 12:01 PM CDT Body Mass Index 38.45 12/14/2017 12:01 PM CDT documented in this encounter Progress Notes * Abelardo Petit MD - 12/14/2017 11:45 AM CDT [facility] FOLLOW UP 12/14/2017 Juvenal Daigle is a 47 y.o. male who presents for follow up of coronary artery disease. This is apatient was found to have CAD in March of 2017 when he presented with ischemic chest pain and enzyme evidence of a non ST elevation MN. He underwent catheterization in 5 of was found to have high-grade stenosis in the distal right coronary artery bridging over the origin of the arch pad cementer lateral branch. He also had diffuse non flow limiting disease elsewhere. There was an ostial 80% stenosis of a small 1st OM branch of his circumflex which is being treated medically. His other comorbidities include advancing chronic kidney disease diabetes and anemia of chronic disease/iron deficiency anemia aswell the patient has been hospitalized several times with the ischemic symptomatology and he does also have an element of ischemic LV dysfunction. Because of this situation he has had the pattern of chronic angina which is not surprising or unexpected and has led to numerous discussions in the office and on the telephone regarding his ability to return to employment. I had previously indicated heneeds to pursue sedentary employment at this time the patient wanted to see me in the office today to discuss these restrictions because if he is not able to return to his former job his employer maybe about to release him next month. He would like to attempt to return to work without restrictions if they can find him in AP position with sedentary activity. After after the above described office visit the patient attempted to go back to work but was symptomatic with minimal activity. Most of his symptomatology is kind of atypical. He does have significant shortness of breath with month with modest activity the chest pain that he is experiencing now seems very atypical of angina my his chest pain is primarily with respiratory effort at times he has some sharp pain and when that occurs it is much worse if he is breathing in and out I told Mr. nai domínguez that this is not a symptom that would concern me regarding his coronary arteries. He was hospitalized last month with this type of symptomatology and it did not sound like a coronary problem. He has a lot of psychosocial stress dealing with his work environment and has now decided to apply for disability. We have filled out all of the necessary paperwork so he can pursue this with his erisa attorney. REVIEW OF SYSTEMS General ROS: negative for - chills, fatigue, fever, malaise, night sweats, weight gain or weight loss Psychological ROS: negative for - anxiety, depression, memory difficulties or sleep disturbances Ophthalmic ROS: negative for - blurry vision, decreased vision, loss of vision or scotomata ENT ROS: negative for - epistaxis, headaches, hearing change, nasal congestion, nasal discharge, sore throat, vertigo or visual changes Hematological and Lymphatic ROS: negative for - bleeding problems, blood clots, bruising, fatigue or weight loss Endocrine ROS: negative for - hot flashes, palpitations, polydipsia/polyuria or unexpected weight changes Respiratory ROS: negative for - cough, hemoptysis, orthopnea, shortness of breath, tachypnea or wheezing Cardiovascular ROS: negative for - chest pain, dyspnea on exertion, edema, irregular heartbeat, loss of consciousness, murmur, orthopnea, palpitations, paroxysmal nocturnal dyspnea, rapid heart rate or shortness of breath Gastrointestinal ROS: negative for - abdominal pain, appetite loss, blood in stools, constipation, diarrhea, gas/bloating, heartburn, hematemesis, melena or nausea/vomiting Genito-Urinary ROS: negative for - dysuria, erectile dysfunction or hematuria Musculoskeletal ROS: negative for - joint pain, muscle pain or muscular weakness Dermatological ROS: negative for dry skin, eczema, pruritus and rash HOME MEDICATIONS Current Outpatient Prescriptions: ??? aspirin 81 mg tablet, Take 81 mg by mouth daily., Disp: , Rfl: ??? carvedilol (COREG) 25 mg tablet, Take 25 mg by mouth 2 (two) times a day with meals., Disp: , Rfl: ??? cholecalciferol (VITAMIN D-3) 2,000 unit capsule, Take 2,000 Units by mouth daily., Disp: , Rfl: ??? cloNIDine (CATAPRES) 0.1 mg tablet, Take 0.1 mg by mouth 2 (two) times a day., Disp: , Rfl: ??? clopidogrel (PLAVIX) 75 mg tablet, TAKE 1 TABLET BY MOUTH DAILY, Disp: 90 tablet, Rfl: 0 ??? colchicine (COLCRYS) 0.6 mg tablet, Take 0.6 mg by mouth 2 (two) times a day., Disp: , Rfl: ??? doxycycline (VIBRAMYCIN) 100 mg capsule, Take 100 mg by mouth 2 (two) times a day., Disp: , Rfl: ??? ELIQUIS 5 mg tablet, TAKE 1 TABLET(5 MG) BY MOUTH TWICE DAILY, Disp: 180 tablet, Rfl: 2 ??? febuxostat (ULORIC) 40 mg tablet, Take 40 mg by mouth daily., Disp: , Rfl: ??? furosemide (LASIX) 40 mg tablet, Take 40 mg by mouth 2 (two) times a day. Take 2 tabs in the amand one tab in the pm , Disp: , Rfl: ??? hydrALAZINE (APRESOLINE) 100 mg tablet, TAKE 1 TABLET BY MOUTH EVERY 8 HOURS, Disp: 90 tablet, Rfl: 5 ??? insulin glargine (LANTUS) 100 unit/mL injection, Inject under the skin nightly., Disp: , Rfl: ??? insulin lispro (HumaLOG) 100 unit/mL injection, Inject under the skin 3 (three) times a day before meals., Disp: , Rfl: ??? isosorbide mononitrate ER (IMDUR) 30 mg 24 hr tablet, Take 30 mg by mouth daily., Disp: , Rfl: ??? isosorbide mononitrate ER (IMDUR) 60 mg 24 hr tablet, Take 1 tablet (60 mg total) by mouth every morning., Disp: 30 tablet, Rfl: 5 ??? nitroglycerin (NITROSTAT) 0.4 mg SL tablet, Place 1 tablet (0.4 mg total) under the tongue every 5 (five) minutes as needed for chest pain. Up to 3 doses, Disp: 100 tablet, Rfl: 3 ??? raNITIdine (ZANTAC) 300 mg tablet, Take 300 mg by mouth 2 (two) times a day., Disp: , Rfl: ??? simvastatin (ZOCOR) 40 mg tablet, Take 40 mg by mouth nightly., Disp: , Rfl: ??? terazosin (HYTRIN) 2 mg capsule, Take 1 capsule (2 mg total) by mouth nightly., Disp: 30 capsule, Rfl: 5 LABS AND OTHER DIAGNOSTIC TESTS Lab Results Component Value Date CHOL 157 03/21/2017 CHOL 202 (H) 11/05/2013 Lab Results Component Value Date HDL 34 (L) 03/21/2017 HDL 29 (L) 11/05/2013 Lab Results Component Value Date LDLCALC 94 03/21/2017 Lab Results Component Value Date TRIG 146 03/21/2017 TRIG 360 (H) 11/05/2013 No results found for: CHOLHDL Lab Results Component Value Date WBC 6.43 03/22/2017 HGB 8.2 (L) 03/22/2017 HCT 26.0 (L) 03/22/2017 MCV 87.5 03/22/2017 No lab exists for component: LABALBU PHYSICAL EXAM Vitals: 12/14/17 1201 BP: 130/50 Pulse: 60 SpO2: 98% Physical Examination: General appearance - alert, well appearing, and in no distress, oriented to person, place, and time and acyanotic, in no respiratory distress Mental status - affect appropriate to mood Eyes - extraocular eye movements intact, sclera anicteric, no pallor Ears - external earsappear normal, hearing grossly normal bilaterally Nose - normal and patent, no erythema or discharge Mouth - mucous membranes moist, pharynx appears normal, dental hygiene good and tongue normal Neck - supple, no significant neck masses, carotids upstroke normal bilaterally, no bruits, no JVD Chest - clear to auscultation, no wheezes, rales or rhonchi, symmetric air entry, no tachypnea, retractions or cyanosis Heart - normal rate, regular rhythm, normal S1, S2, no murmurs, rubs, clicks or gallops, no JVD Abdomen - soft, nontender, nondistended, no masses or organomegaly bowel sounds normal Neurological - alert, oriented, normal speech, no focal findings or movement disorder noted Musculoskeletal - no joint tenderness, deformity or swelling, no muscular tenderness noted Extremities - peripheral pulses normal, no pedal edema, no clubbing or cyanosis Skin - normal coloration and turgor, no rashes, no suspicious skin lesions noted ASSESSMENT Juvenal was seen today for coronary artery disease and chronic kidney disease. Diagnoses and all orders for this visit: 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[place] artery of [place] heart with stable angina pectoris (CMS/HCC) History of coronary artery stent placement PLAN/RECOMMENDATIONS For now no change in medical regimen or his treatment as he has been basically stable no recent anginal symptoms. The patient may be calling in the next several weeks to discuss were removing his activity restrictions for employment I told him if that is his desire I will try to comply with that it we will rather not see him lose his job. Abelardo Petit MD documented in this encounter Plan of Treatment Not on file documented as of this encounter Visit Diagnoses Diagnosis 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[place] artery of [place] heart with stable angina pectoris (HCC)- Primary History of coronary artery stent placement documented in this encounter Care Teams Hvac Project Engineer Relationship Specialty Start Date End Date Jhonatan Bellamy MD [address] [place] [address] PCP - General 03/25/15 04/16/18 documented as of this encounter
--- OUTSIDE RECORDS SUMMARY | 2024-08-18 13:14 | XMS_ITS | Encounter Summary ---
Author Organization [facility] Address [address] [address] Care Team Providers Care Remnants Cutter Name Role Phone Aditya Castro MD Primary Care Provider [phone] Encounter Details Date Type Department Care Team (Late st Contact Info) Description 06/03/2022 Orders Only [facility] Cardiology 6810 [facility] [address] 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 Gender Identity Not on file Sexual Orientation Not on file documented as of this encounter Plan of Treatment Not on file documented as of this encounter Procedures Procedure Name Priority Date/Time Associated Diagnosis Comments CARDIOLOGY DOCUMENT SCAN Routine 06/03/2022 documented in this encounter Results * Cardiology Document Scan (06/03/2022) Anatomical Region Laterality Modality Other us Abelardo Petit MD CV CARDIAC SERVICES PROC EDURES Final Result documented in this encounter Visit Diagnoses Not on filedocumented in this encounter Additional Health Concerns Infection Onset Date Last Indicated Resolved Time COVID: Suspected 06/08/2022 06/08/2022 06/08/2022 10:14 PM CDT documented as of this encounter Care Teams Remnants Cutter Relationship Specialty Start Date End Date Aditya Castro MD 6[address] [facility] [place] [address] PCP - General 10/17/19 documented as of this encounter
--- OUTSIDE RECORDS SUMMARY | 2024-08-18 13:14 | XMS_ITS | Encounter Summary ---
Author Organization [facility] Address [address] [facility] [address] [place] [address] Care Team Providers Care Genetic Physician Name Role Phone Aditya Castro MD Primary Care Provider [phone] Encounter Details Date Type Department Care Team (Late st Contact Info) Description 12/09/2021 Orders Only [facility] Cardiology 68[address] [facility] 162 [facility] 102 [place] [address] Abelardo Petit MD [address] [facility] 102 [place] [address] Social History Tobacco Use Types Packs/Day Years Used Date Smoking Tobacco: Never Smokeless Tobacco: Former Alcohol Use Standard Drinks/Week Comments No 0 (1 standard drink = 0.6 oz pur e alcohol) AUDIT-C Answer Date Recorded Q1: How often do you have a drink containing alc ohol? Never 01/21/2021 Average Number of Drinks Not on file 021 Q3: How often do you have si x or more drinks on one occasion? 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 Gender Identity Not on file Sexual Orientation Not on file documented as of this encounter Plan of Treatment Not on file documented as of this encounter Procedures Procedure Name Priority Date/Time Associated Diagnosis Comments CARDIOLOGY DOCUMENT SCAN Routine 12/09/2021 documented in this encounter Results * Cardiology Document Scan (12/09/2021) Anatomical Region Laterality Modality Other us Abelardo Petit MD CV CARDIAC SERVICES PROC EDURES Final Result documented in this encounter Visit Diagnoses Not on filedocumented in this encounter Care Teams Genetic Physician Relationship Specialty Start Date End Date Aditya Castro MD [address] [facility] [place] [address] PCP - General 10/17/19 documented as of this encounter
--- OUTSIDE RECORDS SUMMARY | 2024-08-18 13:14 | XMS_ITS | Encounter Summary ---
Author Organization [facility] Address [address] [place] [address] Care Team Providers Care Manager Route Name Role Phone Aditya Castro MD Primary Care Provider [phone] Encounter Details Date Type Department Care Team (Latest Contact Info) Description 10/23/2019 9:45 AM COMPOSITE BOND TECHNICIAN - 10/23/2019 3:32 PM COMPOSITE BOND TECHNICIAN Hospital Encounter [facility] Saulo Dockery MD [address] [place] [address] Discharge Disposition: Discharge to home or self care Social History Tobacco Use Types Packs/Day Years Used Date Smoking Tobacco: Never Smokeless Tobacco: Former Alcohol Use Standard Drinks/Week Comments No 0 (1 standard drink = 0.6 oz pur e alcohol) Sex and Gender Information Value Date Recorded Sex Assigned at Not on file Legal Sex Male 3:42 AM COMPOSITE BOND TECHNICIAN Gender Identity Not on file Sexual Orientation Not on file documented as of this encounter Last Filed Vital Signs Vital Sign Reading Time Taken Comments Blood Pressure 159/70 10/23/2019 9:54 AM COMPOSITE BOND TECHNICIAN Pulse 55 10/23/2019 9:54 AM COMPOSITE BOND TECHNICIAN Temperature 36.6 ??C (97.8 ??F) 10/23/2019 9:54 AM CS T Respiratory Rate - - Oxygen Saturation 96% 10/23/2019 9:54 AM COMPOSITE BOND TECHNICIAN Inhaled Oxygen Concentration - - Weight 121.3 kg (267 lb 8 oz) 10/23/2019 9:54 AM COMPOSITE BOND TECHNICIAN Height 177.8 cm (5' 10 ) 10/23/2019 9:54 AM COMPOSITE BOND TECHNICIAN Body Mass Index 38.38 10/23/2019 9:54 AM COMPOSITE BOND TECHNICIAN documented in this encounter Medications at Time [...] 12/24/2018 1 documented as of this encounter Discharge Disposition Disposition Code Departure Means Destination Discharge to home or self care documented in this encounter Plan of Treatment Not on file documented as of this encounter Visit Diagnoses Not on filedocumented in this encounter Care Teams Manager Route Relationship Specialty Start Date End Date Aditya Castro MD 9 [facility] DEPT [place] [address] PCP - General 10/17/19 documented as of this encounter
--- OUTSIDE RECORDS SUMMARY | 2024-08-18 13:14 | XMS_ITS | Encounter Summary ---
Author Organization [facility] Address [address] [address] Care Team Providers Care Burnt Lime Drawer Name Role Phone Aditya Castro MD Primary Care Provider [phone] Encounter Details Date Type Department Care Team (Late st Contact Info) Description 01/11/2021 Orders Only [facility] Cardiology [address] [facility] 162 [facility] 102 [place] [address] Abelardo Petit MD [address] [facility] [address] [place] [address] Social History Tobacco Use Types [...] file 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 Gender Identity Not on file Sexual Orientation Not on file documented as of this encounter Plan of Treatment Not on file documented as of this encounter Procedures Procedure Name Priority Date/Time Associated Diagnosis Comments CARDIOLOGY DOCUMENT SCAN Routine 01/11/2021 documented in this encounter Results * SCAN - CARDIOLOGY (01/11/2021) Anatomical Region Laterality Modality Other us Abelardo Petit MD CV CARDIAC SERVICES PROC EDURES Final Result documented in this encounter Visit Diagnoses Not on filedocumented in this encounter Care Teams Burnt Lime Drawer Relationship Specialty Start Date End Date Aditya Castro MD [address] [facility] [place] [address] PCP - General 10/17/19 documented as of this encounter
--- OUTSIDE RECORDS SUMMARY | 2024-08-18 13:14 | XMS_ITS | Encounter Summary ---
Author Organization [facility] Address [address] [place] [address] Phone Care Team Providers Care Crop Ranch Hand Name Role Phone Jhonatan Bellamy MD Primary Care Provider [phone] Reason for Visit * Reason Onset Date Comments Prior Auth 01/23/2018 pa for Colcrys n eeded Encounter Details Date Type Department Care Team (Late st Contact Info) Description 01/23/2018 Telephone [facility] Scheduling [address] [place], [place] [id number] Karina Pelletier MD [address] [place], [place] [id number] Prior Auth (pa for Colcrys needed) Social History Tobacco Use Types Packs/Day Years Used Date Smoking Tobacco: Never Smokeless Tobacco: Former Alcohol Use Standard Drinks/Week Comments No 0 (1 standard drink = 0.6 oz pur e alcohol) Sex and Gender Information Value Date Recorded Sex Assigned at Not on file 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 GARVIN AND SENT TASK TO DR. PELLETIER REGARDING COLCHICINE MEDICATION. Pt HAS [place] MEDICAID COVERS 01/19/18-02/17/18. [facility] BECOMES EFFECTIVE ON February 18. * Telephone Encounter - Josselin Meyers BS - 01/25/2018 1:14 PM CDT CMM ([place]: [id number]) * Telephone Encounter - Nini Levy - 01/23/2018 11:07 AM CDT Pt is needing PA for Colchicine. PA on file is with [employer]. PT now has Medicare. documented in this encounter Plan of Treatment Not on file documented as of this encounter Visit Diagnoses Not on filedocumented in this encounter Care Teams Crop Ranch Hand Relationship Specialty Start Date End Date Jhonatan Bellamy MD [address] [place] [address] PCP - General 03/25/15 04/16/18 documented as of this encounter
--- OUTSIDE RECORDS SUMMARY | 2024-08-18 13:14 | XMS_ITS | Encounter Summary ---
Author Organization [facility] Address [address] [facility] [address] [place] [address] Care Team Providers Care Immigration Associate Name Role Phone Jhonatan Bellamy MD Primary Care Provider [phone] Encounter Details Date Type Department Care Team (Late st Contact Info) Description 11/15/2017 Telephone [facility] 6810 [facility] [address] [address] Abelardo Petit MD [address] [facility] 102 [place] [address] Social History Tobacco Use Types Packs/Day Years Used Date Smoking Tobacco: Never Smokeless Tobacco: Former Alcohol Use Standard Drinks/Week Comments No 0 (1 standard drink = 0.6 oz pur e alcohol) Sex and Gender Information Value Date Recorded Sex Assigned at Not on file 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 It has not been. Pt does not Want usto send anything to [employer] releasing him to work, He has chest pressure and feels really lousy at work. He is exhausted after working a shift. He has an collections attorney to help him with SS disability * Telephone Encounter - Lisa Diaz RN - 11/15/2017 9:35 AM CDT Called pt, he said he wants to pursue SS disability, he cannot work due to his health issues. Pt said his blood sugar is 57, asked that I call him back in 30 minutes. * Telephone Encounter - Augustina Jefferson MA - 11/15/2017 9:19 AM CDT Pt called wanting to speak with dr. petit or nurse about disability. Pt can be reached at [phone] [place] Ram documented in this encounter Plan of Treatment Not on file documented as of this encounter Visit Diagnoses Not on filedocumented in this encounter Care Teams Immigration Associate Relationship Specialty Start Date End Date Jhonatan Bellamy MD [address] [place] [address] PCP - General 03/25/15 04/16/18 documented as of this encounter
--- OUTSIDE RECORDS SUMMARY | 2024-08-18 13:14 | XMS_ITS | Encounter Summary ---
Author Organization [facility] Address [address] [place] [address] Phone Care Team Providers Care Equity Analyst Name Role Phone Jhonatan Bellamy MD Primary Care Provider [phone] Encounter Details Date Type Department Care Team (Late st Contact Info) Description 03/22/2018 Orders Only [facility] Rheumatology [address] [facility] Advanced Medicine 5th [place] [address] [place] [address] Karina Johnson MD [address] [place], [place] [id number] Social History Tobacco Use Types Packs/Day Years Used Date Smoking Tobacco: Never Smokeless Tobacco: Former Alcohol Use Standard Drinks/Week Comments No 0 (1 standard drink = 0.6 oz pur e alcohol) Sex and Gender Information Value Date Recorded Sex Assigned at Not on file Legal Sex Male 3:[address]TENANCE TECHNIC[address] Gender Identity Not on file Sexual Orientation Not on file documented as of this encounter Ordered Prescriptions Prescription Sig Dispense Quantity Refills Last Filled Start Date End Date predniSONE (DELTASONE) 10 mg tabletIndications:G out Take 4 tab per day x 5 days, then 3 tabs per day x 5 days, then 2 tabs per day x 5 days, then 1 tab per day x 5 days 50 tablet 1 03/22/2018 01/20/2021 documented in this encounter Plan of Treatment Not on file documented as of this encounter Visit Diagnoses Not on filedocumented in this encounter Care Teams Equity Analyst Relationship Specialty Start Date End Date Jhonatan Bellamy MD [address] [place] [address] PCP - General 03/25/15 04/16/18 documented as of this encounter
--- OUTSIDE RECORDS SUMMARY | 2024-08-18 13:14 | XMS_ITS | Encounter Summary ---
Author Organization [facility] Address [address] [address] Care Team Providers Care Dredge Mechanic Name Role Phone Jhonatan Bellamy MD Primary Care Provider [phone]- [phone] Encounter Details Date Type Department Care Team (Late st Contact Info) Description 10/02/2017 Telephone [facility] [address] [address] Abelardo Petit MD 6810 [facility] [address] [address] Social History Tobacco Use Types Packs/Day Years Used Date Smoking Tobacco: Never Smokeless Tobacco: Former Alcohol Use Standard Drinks/Week Comments No 0 (1 standard drink = 0.6 oz pur e alcohol) Sex and Gender Information Value Date Recorded Sex Assigned at Not on file 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 E OUTREACH CASE MANAGER * Telephone Encounter - Lissy Schneider MA - 10/02/2017 4:33 PM CST Spoke pt. Pt states that he spoke with Robin. Pt states that he would return to work on 10/10/17 and would like a call back from Robin. Pt would like note to say that he can return to work at full duty. E OUTREACH CASE MANAGER documented in this encounter Plan of Treatment Not on file documented as of this encounter Visit Diagnoses Not on filedocumented in this encounter Care Teams Dredge Mechanic Relationship Specialty Start Date End Date Jhonatan Bellamy MD [address] [address] PCP - General 03/25/15 04/16/18 documented as of this encounter
--- OUTSIDE RECORDS SUMMARY | 2024-08-18 13:14 | XMS_ITS | Encounter Summary ---
Author Organization [facility] Address [address] [address] Care Team Providers Care Churn Driller Name Role Phone Aditya Castro MD Primary Care Provider [phone] Encounter Details Date Type Department Care Team (Late st Contact Info) Description 06/03/2022 Orders Only [facility] Cardiology 6810 [facility] 162 [facility] [address] [place] [address] Abelardo Petit MD 6810 [facility] [address] [facility] [address] [place] [address] Social History Tobacco Use Types [...] on file 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
--- OUTSIDE RECORDS SUMMARY | 2024-08-18 13:14 | XMS_ITS | Encounter Summary ---
Author Organization [facility] Address 6[address] [facility] [address] [place] [address] Care Team Providers Care Laundry Tech Name Role Phone Aditya Castro MD Primary Care Provider [phone] Encounter Details Date Type Department Care Team (Late st Contact Info) Description 02/02/2020 Orders Only [facility] Cardiology 6810 [facility] 162 [address] [place] [address] Carrington Weeks MD [facility] [place] [id number] Social History Tobacco Use Types Packs/Day Years Used Date Smoking Tobacco: Never Smokeless Tobacco: Former Alcohol Use Standard Drinks/Week Comments No 0 (1 standard drink = 0.6 oz pur e alcohol) Sex and Gender Information Value Date Recorded Sex Assigned at Not on file Legal Sex Male 3:42 AM COORDINATOR OF HEALTH SERVICES Gender Identity Not on file Sexual Orientation Not on file documented as of this encounter Plan of Treatment Not on file documented as of this encounter Procedures Procedure Name Priority Date/Time Associated Diagnosis Comments CARDIOLOGY DOCUMENT SCAN Routine 02/02/2020 documented in this encounter Results * SCAN - CARDIOLOGY (02/02/2020) Anatomical Region Laterality Modality Other Carrington Weeks MD CV CARDIAC SERVICES LISETTE VELAZQUEZ Final Result documented in this encounter Visit Diagnoses Not on filedocumented in this encounter Care Teams Laundry Tech Relationship Specialty Start Date End Date Aditya Castro MD [address] [facility] [place] [address] PCP - General 10/17/19 documented as of this encounter
--- OUTSIDE RECORDS SUMMARY | 2024-08-18 13:14 | XMS_ITS | Encounter Summary ---
Author Organization [facility] Address [address] [place] [address] Phone Care Team Providers Care Brazing Machine Feeder Name Role Phone Jhonatan Bellamy MD Primary Care Provider [phone] Encounter Details Date Type Department Care Team (Late st Contact Info) Description 03/15/2018 Telephone [facility] Rheumatology 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 Not a working number. Mailing orders to pt's home. documented in this encounter Plan of Treatment Not on file documented as of this encounter Visit Diagnoses Not on filedocumented in this encounter Care Teams Brazing Machine Feeder Relationship Specialty Start Date End Date Jhonatan Bellamy MD [address] [place] [address] PCP - General 03/25/15 04/16/18 documented as of this encounter
--- OUTSIDE RECORDS SUMMARY | 2024-08-18 13:14 | XMS_ITS | Encounter Summary ---
Author Organization [facility] Address [address] [place] [address] Phone Care Team Providers Care Bicycle Repairer Name Role Phone Jhonatan Bellamy MD Primary Care Provider [phone] Reason for Visit * Reason Onset Date Comments Prior Auth 02/19/2018 uloric 40mg once daily Encounter Details Date Type Department Care Team (Late st Contact Info) Description 02/19/[address] 5th [place] [address] [place] [address] Martha Duckworth Prior Auth (uloric 40mg once daily) Social History Tobacco Use Types Packs/Day Years Used Date Smoking Tobacco: Never Smokeless Tobacco: Former Alcohol Use Standard Drinks/Week Comments No 0 (1 standard drink = 0.6 oz pur e alcohol) Sex and Gender Information Value Date Recorded Sex Assigned at Not on file Legal 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 Male 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 Gender Identity Not on file Sexual Orientation Not on file documented as of this encounter Miscellaneous Notes * Telephone Encounter - Josselin Meyers BS - 02/26/2018 9:17 AM CDT MEDICATION PRIOR AUTHORIZATION FORM Date: 02/26/18 Patient Name: Juvenal Daigle : 1970 PROVIDER: NAVARRO PELLETIER PRIMARY DIAGNOSIS: CHRONIC GOUT ICD-10 CODE: [id number] RX BENEFIT HUMAN RESOURCE MANAGER: DIANE HEARN ID#: [id number] CUSTOMER SERVICE PH#: FAX#: DRUG INFORMATION: ULORIC 40mg TABLETS Requested Prescriptions No prescriptions requested or ordered in this encounter CAN THIS DRUG BE FILLED AT ANY PHARMACY?: DOES THIS DRUG REQUIRE THE USE OF A SPECIALTY PHARMACY?: PHARMACY NAME: PHONE#: FAX#: AUTH#: [id number] EFFECTIVE: 02/20/2018 EXPIRES: 05/20/2018 NOTES: Lisa JACKSON: [facility] Completed by: POLI Myers * Telephone Encounter - Nini Levy - 02/20/2018 8:08 AM CDT Jackson: [facility] * Telephone Encounter - Martha Duckworth MA - 02/19/2018 4:22 PM CDT Pt needs a prior auth on Uloric 40mg once daily documented in this encounter Plan of Treatment Not on file documented as of this encounter Visit Diagnoses Not on filedocumented in this encounter Care Teams Bicycle Repairer Relationship Specialty Start Date End Date Jhonatan Bellamy MD [address] [place] [address] PCP - General 03/25/15 04/16/18 documented as of this encounter
--- OUTSIDE RECORDS SUMMARY | 2024-08-18 13:14 | XMS_ITS | Encounter Summary ---
Author Organization [facility] Address [address] [address] Care Team Providers Care Counter Stitcher Name Role Phone Jhonatan Bellamy MD Primary Care Provider [phone]- [phone] Encounter Details Date Type Department Care Team (Late st Contact Info) Description 10/16/2017 Telephone [facility] [address] [address] Abelardo Petit MD [address] [facility] [address] [place] [address] Social History Tobacco Use Types Packs/Day Years Used Date Smoking Tobacco: Never Smokeless Tobacco: Former Alcohol Use Standard Drinks/Week Comments No 0 (1 standard drink = 0.6 oz pur e alcohol) Sex and Gender Information Value Date Recorded Sex Assigned at Not on file Legal Sex Male 3:42 AM SAND CUTTER Gender Identity Not on file Sexual Orientation Not on file documented as of this encounter Miscellaneous Notes * Telephone Encounter - Lisa Diaz RN - 10/17/2017 8:[address] Marisabel LM for pt that his appointment has been rescheduled to March 28 at 8:30 CUTTER * Telephone Encounter - Gaby Vergara - 10/16/2017 3:58 PM CST Patient calling to see if Dr Petit really needs to see him on Monday. Patient states he talked with Dr Petit earlier this month (nothing noted) that he doesn't need to come in if he is feeling ok. Would like someone to ask Dr Petit about this. He wont be able to make appt Monday but will wait to cancel the appt until he hears clarification as to when Dr Petti wants to see him again. CUTTER documented in this encounter Plan of Treatment Not on file documented as of this encounter Visit Diagnoses Not on filedocumented in this encounter Care Teams Counter Stitcher Relationship Specialty Start Date End Date Jhonatan Bellamy MD [address] [place] [address] PCP - General 03/25/15 04/16/18 documented as of this encounter
--- OUTSIDE RECORDS SUMMARY | 2024-08-18 13:14 | XMS_ITS | Encounter Summary ---
Author Organization [facility] Address [address] [address] Care Team Providers Care Branch Lead Name Role Phone Jhonatan Bellamy MD Primary Care Provider [phone]- [phone] Encounter Details Date Type Department Care Team (Late st Contact Info) Description 01/22/2018 Telephone [facility] [address] [address] Abelardo Petit MD 9600 [facility] [address] [address] Social History Tobacco Use Types Packs/Day Years Used Date Smoking Tobacco: Never Smokeless Tobacco: Former Alcohol Use Standard Drinks/Week Comments No 0 (1 standard drink = 0.6 oz pur e alcohol) Sex and Gender Information Value Date Recorded Sex Assigned at Not on file Legal Sex Male 3: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 * Telephone Encounter - Myrna Easton NP - 01/22/2018 9:52 AM CDT From a cardiovascular perspective, there is no contraindication for him doing a long car drive. I would recommend he remain compliant with his medication during his travel and get out of the car every 2 hr for a short walk and stretching his legs. * Telephone Encounter - Lisa Diaz RN - 01/22/2018 9:14 AM CDT Will ask Myrna to review for recommendation for lengthy car trip. * Telephone Encounter - Amberly Rader - 01/22/2018 8:06 AM CDT Pt wants to know if it is okay for him to drive for 20 hours (in 10 hour stretches) within a 72 hour period. Please cb [phone] documented in this encounter Plan of Treatment Not on file documented as of this encounter Visit Diagnoses Not on filedocumented in this encounter Care Teams Branch Lead Relationship Specialty Start Date End Date Jhonatan Bellamy MD [place] [address] PCP - General 03/25/15 04/16/18 documented as of this encounter
--- OUTSIDE RECORDS SUMMARY | 2024-08-18 13:14 | XMS_ITS | Encounter Summary ---
Author Organization [facility] Address [address] [address] Care Team Providers Care Reheater Helper Name Role Phone Jhonatan Bellamy MD Primary Care Provider [phone]- [phone] Encounter Details Date Type Department Care Team (Late st Contact Info) Description 02/16/2018 Telephone [facility] [address] [place] [address] Abelardo Petit MD 3[address] [facility] [address] [address] Social History Tobacco Use Types Packs/Day Years Used Date Smoking Tobacco: Never Smokeless Tobacco: Former Alcohol Use Standard Drinks/Week Comments No 0 (1 standard drink = 0.6 oz pur e alcohol) Sex and Gender Information Value Date Recorded Sex Assigned at Not on file 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 * Telephone Encounter - Amberly Rader - 02/16/2018 9:23 AM CDT Myrna from [facility] called for an ICD 10 code for plavix. [phone] documented in this encounter Plan of Treatment Not on file documented as of this encounter Visit Diagnoses Not on filedocumented in this encounter Care Teams Reheater Helper Relationship Specialty Start Date End Date Jhonatan Bellamy MD [address] [place], [place] [address] PCP - General 03/25/15 04/16/18 documented as of this encounter
--- OUTSIDE RECORDS SUMMARY | 2024-08-18 13:14 | XMS_ITS | Encounter Summary ---
Author Organization [facility] Address [address] [facility] [address] [place] [address] Care Team Providers Care Distribution Agent Name Role Phone Eugenia Hughes MD Primary Care Provider +1- [phone] Encounter Details Date Type Department Care Team (Late st Contact Info) Description 09/09/2019 Orders Only [facility] Cardiology 6810 [facility] [address] [address] Abelardo Petit MD [address] [email or web address] [address] [place] [address] Social History Tobacco Use Types Packs/Day Years Used Date Smoking Tobacco: Never Smokeless Tobacco: Former Alcohol Use Standard Drinks/Week Comments No 0 (1 standard drink = 0.6 oz pur e alcohol) Sex and Gender Information Value Date Recorded Sex Assigned at Not on file 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 Gender Identity Not on file Sexual Orientation Not on file documented as of this encounter Plan of Treatment Not on file documented as of this encounter Procedures Procedure Name Priority Date/Time Associated Diagnosis Comments CARDIOLOGY DOCUMENT SCAN Routine 09/09/2019 documented in this encounter Results * SCAN - CARDIOLOGY (09/09/2019) Anatomical Region Laterality Modality Other Abelardo Petit MD CV CARDIAC SERVICES PROC EDURES Final Result documented in this encounter Visit Diagnoses Not on filedocumented in this encounter Care Teams Distribution Agent Relationship Specialty Start Date End Date Dill Rader, Eugenia, MD PCP - General Family Practice 04/19/18 10/16/19 documented as of this encounter
--- OUTSIDE RECORDS SUMMARY | 2024-08-18 13:14 | XMS_ITS | Encounter Summary ---
Author Organization [facility] Address 670 [facility] [address] [place] [address] Care Team Providers Care Cdl Company Driver Name Role Phone Aditya Castro MD Primary Care Provider [phone] Encounter Details Date Type Department Care Team (Late st Contact Info) Description 01/31/2020 Orders Only [facility] Cardiology 6810 [facility] [address] [address] Abelardo Petit MD [address] [facility] 102 [place] [address] Social History Tobacco Use Types Packs/Day Years Used Date Smoking Tobacco: Never Smokeless Tobacco: Former Alcohol Use Standard Drinks/Week Comments No 0 (1 standard drink = 0.6 oz pur e alcohol) Sex and Gender Information Value Date Recorded Sex Assigned at Not on file 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 Gender Identity Not on file Sexual Orientation Not on file documented as of this encounter Plan of Treatment Not on file documented as of this encounter Procedures Procedure Name Priority Date/Time Associated Diagnosis Comments CARDIOLOGY DOCUMENT SCAN Routine 01/31/2020 documented in this encounter Results * SCAN - CARDIOLOGY (01/31/2020) Anatomical Region Laterality Modality Other Abelardo Petit MD CV CARDIAC SERVICES PROC EDURES Final Result documented in this encounter Visit Diagnoses Not on filedocumented in this encounter Care Teams Cdl Company Driver Relationship Specialty Start Date End Date Castro, Aditya, MD [address] [facility] [place] [place] [address] PCP - General 10/17/19 documented as of this encounter
--- OUTSIDE RECORDS SUMMARY | 2024-08-18 13:14 | XMS_ITS | Encounter Summary ---
Author Organization [facility] Address [address] [place] [address] Phone Care Team Providers Care Rubber Extrusion Machine Operator Name Role Phone Jhonatan Bellamy MD Primary Care Provider [phone] Reason for Visit * Reason Onset Date Comments Prior Auth 01/25/2018 colchicine 0.6mg Encounter Details Date Type Department Care Team (Late st Contact Info) Description 01/25/2018 Telephone [facility] Rheumatology 4921 [facility] Medicine 5th [place] [address] [place] [address] Miguel Pelletier MD [address] [place], [place] [id number] Prior Auth (colchicine 0.6mg) Social History Tobacco Use Types Packs/Day Years Used Date Smoking Tobacco: Never Smokeless Tobacco: Former Alcohol Use Standard Drinks/Week Comments No 0 (1 standard drink = 0.6 oz pur e alcohol) Sex and Gender Information Value Date Recorded Sex Assigned at Not on file 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 I DID NOT SEE IN THE [employer] SYSTEM. THANKS SO MUCH. * Telephone Encounter - Martha Duckworth MA - 02/05/2018 12:23 PM CDT Please review * Telephone Encounter - Miguel Pelletier MD - 02/05/2018 12:06 PM CDT I will write a letter - can be used for both. miguel Manrique * Telephone Encounter - Martha Duckworth MA - 02/02/2018 8:[address] Pelletier please review * Telephone Encounter - Glory Meyers BS - 02/02/2018 8:30 AM CDT JAGRUTI MESA, ?? MEDICAID IS INFORMED THAT MR. GARVIN HAS TRIED ALLOPURINOL. THE REP I SPOKE TO LAST WEEK ASKED FOR A LETTER FROM DR. PELLETIER STATING THE MEDICAL REASON WHY THE PT NEEDS TO BE ON COLCHICINE LONGER THAN 6 MONTHS. MR. GARVIN IS CURRENTLY COVERED BY [place]ICA[place] FOR ANOTHER 14 DAYS WITH THE TERM DATE ON 02/17/2018. ON HE WILL BE INSURED BY [employer] WHICH IS ANOTHER [place] MEDICAID MANAGED PLAN. SO WE WILL HAVE TO DO THIS PRIOR AUTHORIZATION AGAIN. ?? GLORY. * Telephone Encounter - Glory Meyers BS - 02/02/2018 8:26 AM CDT HI RACHAEL, MEDICAID IS INFORMED THAT MR. GARVIN HAS TRIED ALLOPURINOL. THE REP I SPOKE TO LAST WEEK ASKED FOR A LETTER FROM DR. PELLETIER STATING THE MEDICAL REASON WHY THE PT NEEDS TO BE ON COLCHICINE LONGER THAN 6 MONTHS. MR. GARVIN IS CURRENTLY COVERED BY [place] MEDICA[place] FOR ANOTHER 14 DAYS WITH THE TERM DATE ON 02/17/2018. ON HE WILL BE INSURED BY [employer] WHICH IS ANOTHER [place] MEDICAID MANAGED PLAN. SO WE WILL HAVE TO DO THIS PRIOR AUTHORIZATION AGAIN. GLORY. * Telephone Encounter - Martha Duckworth MA - 02/02/2018 8:10 AM CDT Glory, Can we do another prior auth and explain to them that he tried and failed allopurinol and developedHyperkalemia. Please advise. Thank you * Telephone Encounter - Miguel Pelletier MD - 02/01/2018 3:16 PM CDT Did this get figured out? Please let me know. * Telephone Encounter - Miguel Pelletier MD - 01/31/2018 10:13 AM CDT He was tried on allopurinol in the past and developed hyperkalemia. He was then changed over to hisfebuxostat. * Telephone Encounter - Martha Duckworth MA - 01/30/2018 9:02 AM CDT Pharmacy states that ins will cover Allopurinol and they want to know if you willing to try this medication for this pt. * Telephone Encounter - Glory Meyers BS - 01/26/2018 8:20 AM CDT JAGRUTI HOLGUIN, PT HAS [place]ICA[place] FOR 01/19/18-02/17/18. COLCHICINE IS NOT MEDICAID PREFERRED DRUG AND IT WAS DENIED YESTERDAY. THE PHARMACIST QUESTIONED OF WHY HE PT IS ON THIS DRUG OVER [address] MON[address] SENT TASK TO DR. PELLETIER YESTERDAY REGARDING THE LETTER OF MEDICAL NECESSITY. FOR 02/18/2018, MR. GARVIN WILL HAVE [place] INSTEAD OF [place] MEDICA[place]. GLORY. * Telephone Encounter - Martha Duckworth MA - 01/25/2018 4:11 PM CDT Pt is needing a prior auth documented in this encounter Plan of Treatment Not on file documented as of this encounter Visit Diagnoses Not on filedocumented in this encounter Care Teams Rubber Extrusion Machine Operator Relationship Specialty Start Date End Date Jhonatan Bellamy MD [address] [place] [address] PCP - General 03/25/15 04/16/18 documented as of this encounter
--- OUTSIDE RECORDS SUMMARY | 2024-08-18 13:14 | XMS_ITS | Encounter Summary ---
Author Organization [facility] Address [address] [address] Care Team Providers Care Oncology Physician Assistant Name Role Phone Jhonatan Bellamy MD Primary Care Provider [phone] Encounter Details Date Type Department Care Team (Late st Contact Info) Description 11/09/2017 Telephone [facility] [address] [id number] Abelardo Petit MD [address] [facility] [address] [address] Social History Tobacco Use Types Packs/Day Years Used Date Smoking Tobacco: Never Smokeless Tobacco: Former Alcohol Use Standard Drinks/Week Comments No 0 (1 standard drink = 0.6 oz pur e alcohol) Sex and Gender Information Value Date Recorded Sex Assigned at Not on file 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 This patient was seen this morning in the hospital at [facility]. He was admitted with some symptoms of shortness of breath and chest pain there were no new apparent cardiac problems and he is being discharged later today he does have significant renal failure with a creatinine of 2.9. His fruit bar maker should be in charge of managing his diuretics. He didnot have any evidence of acute coronary syndrome is electrocardiogram was benign and troponin levels were negative follow-up is going to be scheduled in the office with me. The patient also told me during this visit that he is decided he is not going to be able to continue work at his job and his contacted a criminal defense attorney. * Telephone Encounter - Gaby Anderson RN - 11/09/2017 1:21 PM CDT Forwarded to Dr. Petit * Telephone Encounter - Gaby Anderson RN - 11/09/2017 1:11 PM CDT I called the patient back. He is having worsening shortness of breath. Weight is 255 lbs (previously 248). Lasix dose is currently 40mg bid. He is in 4th stage of kidney failure. He sees a Dr. Reyes for nephrology. He has bilateral lower extremity edema. He is short of breath all the time (even while at rest). Advised ER with worsening symptoms. Advised contact his fruit bar maker as well. We will call back with our recommendations but he may end up getting a quicker response from fruit bar maker. Heverbalizes understanding. * Telephone Encounter - Angelita Mcgee - 11/09/2017 12:20 PM CDT Patient called office he is experiencing pain in chest and trouble breathing He states for a couple days documented in this encounter Plan of Treatment Not on file documented as of this encounter Visit Diagnoses Not on filedocumented in this encounter Care Teams Oncology Physician Assistant Relationship Specialty Start Date End Date Jhonatan Bellamy MD [address] [place] [address] PCP - General 03/25/15 04/16/18 documented as of this encounter
--- OUTSIDE RECORDS SUMMARY | 2024-08-18 13:14 | XMS_ITS | Encounter Summary ---
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 Gender Identity Not on file Sexual Orientation Not on file documented as of this encounter Plan of Treatment Not on file documented as of this encounter Procedures Procedure Name Priority Date/Time Associated Diagnosis Comments CARDIOLOGY DOCUMENT SCAN Routine 12/09/2021 documented in this encounter Results * Cardiology Document Scan (12/09/2021) Anatomical Region Laterality Modality Other us Aba Flores MD CV CARDIAC SERVICES PROC EDURES Final Result documented in this encounter Visit Diagnoses Not on filedocumented in this encounter Care Teams Physician Assistant Psychiatry Relationship Specialty Start Date End Date Aditya Castro MD [address] [facility] [place] [address] PCP - General 10/17/19 documented as of this encounter
--- OUTSIDE RECORDS SUMMARY | 2024-08-18 13:14 | XMS_ITS | Encounter Summary ---
Author Organization [facility] Address [address] [place] [address] Phone Care Team Providers Care Switchboard Operator Name Role Phone Jhonatan Bellamy MD Primary Care Provider [phone] Reason for Visit * Reason Onset Date Comments Prior Auth 03/29/2018 PA needed for Ul oric Encounter Details Date Type Department Care Team (Late st Contact Info) Description 03/29/2018 Telephone [facility] Rheumatology [address] [facility] 5th [place] [address] [place] [address] Navarro Pelletier MD [address] [place], [place] [id number] Prior Auth (PA needed for Uloric ) Social History Tobacco Use Types Packs/Day Years Used Date Smoking Tobacco: Never Smokeless Tobacco: Former Alcohol Use Standard Drinks/Week Comments No 0 (1 standard drink = 0.6 oz pur e alcohol) Sex and Gender Information Value Date Recorded Sex Assigned at Not on file 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 This patient is approved. Thank you! * Telephone Encounter - Nini Levy - 04/05/2018 2:06 PM CDT MEDICATION PRIOR AUTHORIZATION FORM Date: 04/11/18 Patient Name: Juvenal Daigle : 1970 PROVIDER: NAVARRO PELLETIER PRIMARY DIAGNOSIS: GOUT ICD-10 CODE: M1A.9 RX BENEFIT PAINT LINE SUPERVISOR: GABINO ID#: [id number] [facility] #: [id number] FAX#: DRUG INFORMATION: Requested Prescriptions Pending Prescriptions Disp Refills ??? febuxostat (ULORIC) 40 mg tablet Sig: Take 1 tablet (40 mg total) by mouth daily. CAN THIS DRUG BE FILLED AT ANY PHARMACY?: unknown DOES THIS DRUG REQUIRE THE USE OF A SPECIALTY PHARMACY?: unknown PHARMACY NAME: PHONE#: FAX#: AUTH#: APPROVED EFFECTIVE: 04/05/2018 EXPIRES: 07/06/2018 NOTES: Completed by: Maria L Levy * Telephone Encounter - Evangelista Sifuentes LPN - 04/03/2018 10:50 AM CDT I spoke with this patient. He said he now has [facility] * Telephone Encounter - Nini Levy - 03/30/2018 11:14 AM CDT Can you tell me this Pt's active insurance, [employer] on file is not active. * Telephone Encounter - Alexis Gonzalez MA - 03/29/2018 3:41 PM CDT PA needed for Uloric documented in this encounter Plan of Treatment Not on file documented as of this encounter Visit Diagnoses Not on filedocumented in this encounter Care Teams Switchboard Operator Relationship Specialty Start Date End Date Jhonatan Bellamy MD [address] [place], [place] [id number] PCP - General 03/25/15 04/16/18 documented as of this encounter
--- OUTSIDE RECORDS SUMMARY | 2024-08-18 13:14 | XMS_ITS | Encounter Summary ---
Author Organization [facility] Address [address] [facility] [address] [place] [address] Care Team Providers Care Senior Officer Name Role Phone Eugenia Hughes MD Primary Care Provider [phone] Reason for Visit * Reason Comments Coronary Artery Disease 3 mo f/u Encounter Details Date Type Department Care Team (Late st Contact Info) Description 04/19/2018 9:45 AM CDT Office Visit [facility] [address] [address] Abelardo Petit MD [address] [place] [address] [address] 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[place] artery of [place] heart with stable angina pectoris (CMS/HCC) (Primary Dx); History of coronary artery stent placement Social History Tobacco Use Types Packs/Day Years Used Date Smoking Tobacco: Never Smokeless Tobacco: Former Alcohol Use Standard Drinks/Week Comments No 0 (1 standard drink = 0.6 oz pur e alcohol) Sex and Gender Information Value Date Recorded Sex Assigned at Not on file 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 Gender Identity Not on file Sexual Orientation Not on file documented as of this encounter Last Filed Vital Signs Vital Sign Reading Time Taken Comments Blood Pressure 144/60 04/19/2018 10:21 AM CDT Pulse 60 04/19/2018 10:21 AM CDT Temperature - - Respiratory Rate - - Oxygen Saturation 98% 04/19/2018 10:21 AM CDT Inhaled Oxygen Concentration - - Weight 118.8 kg (262 lb) 04/19/2018 10:21 AM CDT Height 177.8 cm (5' 10 ) 04/19/2018 10:21 AM CDT Body Mass Index 37.59 04/19/2018 10:21 AM CDT documented in this encounter Progress Notes * Abelardo Petit MD - 04/19/2018 9:45 AM CDT [facility] FOLLOW UP 04/19/2018 Juvenal Daigle is a 47 y.o. male who presents for follow up of coronary artery disease. This is apatient was found to have CAD in March of 2017 when he presented with ischemic chest pain and enzyme evidence of a non ST elevation [place]. He underwent catheterization in 5 of was found to have high-grade stenosis in the distal right coronary artery bridging over the origin of the matting press tender lateral branch. He also had diffuse non [...] regarding his ability to return to employment. He made an attempt to return to work which was unsuccessful he had ischemic symptoms with modest activity although lot of his symptomatology I thought was atypical. In any event he is now on medical disability He returns for scheduled follow-up today. Overall after a long discussion it seems like he is describing basically a stable situation. He still has a lot of atypical symptomatology but some symptoms that are consistent with angina. When he does have exertional chest pain he is able to achieve relief with rest on a couple of 2 occasions he has taken a nitroglycerin tablet. I encouraged the patientto use nitroglycerin if he needs to for chest pain that is not easily relieved with rest. He has a fair amount of stress at home he has custody of both of his children as his and he have become . REVIEW OF SYSTEMS General ROS: negative for [...] Rfl: ??? carvedilol (COREG) 25 mg tablet, TAKE 2 TABLET BY MOUTH EVERY 12 HOURS, Disp: 360 tablet, Rfl: 0 ??? cholecalciferol (VITAMIN D-3) 2,000 unit capsule, Take 2,000 Units by mouth daily., Disp: , Rfl: ??? cloNIDine (CATAPRES) 0.1 mg tablet, Take 0.1 mg by mouth 2 (two) times a day., Disp: , Rfl: ??? clopidogrel (PLAVIX) 75 mg tablet, TAKE 1 TABLET BY MOUTH DAILY, Disp: 90 tablet, Rfl: 0 ??? clopidogrel (PLAVIX) 75 mg tablet, TAKE 1 TABLET BY MOUTH DAILY, Disp: 90 tablet, Rfl: 1 ??? colchicine (COLCRYS) 0.6 mg tablet, Take [...] EVERY 8 HOURS, Disp: 90 tablet, Rfl: 1 ??? insulin glargine (LANTUS) 100 unit/mL injection, Inject under the skin nightly., Disp: , Rfl: ??? insulin lispro (HumaLOG) 100 unit/mL injection, Inject under the skin 3 (three) times a day before meals., Disp: , Rfl: ??? isosorbide mononitrate ER (IMDUR) 30 mg 24 hr tablet, TAKE 1 TABLET BY MOUTH EVERY DAY, Disp: 90 tablet, Rfl: 2 ??? isosorbide mononitrate ER (IMDUR) 60 mg 24 hr tablet, TAKE 1 TABLET(60 MG) BY MOUTH EVERY MORNING, Disp: 30 tablet, Rfl: 5 ??? nitroglycerin (NITROSTAT) 0.4 mg SL tablet, Place 1 tablet (0.4 mg total) under the tongue every 5 (five) minutes as needed for chest pain. Up to 3 doses, Disp: 100 tablet, Rfl: 3 ??? predniSONE (DELTASONE) 10 mg tablet, Take 4 tab per day x 5 days, then 3 tabs per day x 5 days,then 2 tabs per day x 5 days, then 1 tab per day x 5 days, Disp: 50 tablet, Rfl: 1 ??? raNITIdine (ZANTAC) 300 mg tablet, Take 300 mg by mouth 2 (two) times a day., Disp: , Rfl: ??? simvastatin (ZOCOR) 40 mg tablet, Take 40 mg by mouth nightly., Disp: , Rfl: ??? terazosin (HYTRIN) 2 mg capsule, TAKE 1 CAPSULE(2 MG) BY MOUTH EVERY NIGHT, Disp: 90 capsule, Rfl: 3 LABS AND OTHER DIAGNOSTIC TESTS Lab Results Component Value Date CHOL 157 03/21/2017 CHOL 202 (H) 11/05/2013 Lab Results Component Value Date HDL 34 (L) 03/21/2017 HDL 29 (L) 11/05/2013 Lab Results Component Value Date LDLCALC 94 03/21/2017 Lab Results Component Value Date TRIG 146 03/21/2017 TRIG 360 (H) 11/05/2013 No results found for: CHOLHDL Lab Results Component Value Date WBC 5.1 09/08/2017 HGB 10.4 (L) 09/08/2017 HCT 26.0 (L) 03/22/2017 MCV 87.5 03/22/2017 No lab exists for component: LABALBU PHYSICAL EXAM There were no vitals taken for this visit. Physical Examination: General appearance - alert, well [...] Juvenal was seen today for coronary artery disease. Diagnoses and all orders for this visit: 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[place] artery of [place] heart with stable angina pectoris (CMS/HCC) History of coronary artery stent placement PLAN/RECOMMENDATIONS Continue current medical regimen Follow-up at 6 month intervals or p.r.n. Abelardo Petit MD FACC documented in this encounter Miscellaneous Notes * Addendum Note - Jakcie Shelby MA - 04/19/2018 9:45 AM CDTAddended by: JACKIE SHELBY on: 04/20/2018 09:28 AM Modules accepted: Orders documented in this encounter Plan of Treatment Not on file documented as of this encounter Procedures Procedure Name Priority Date/Time Associated Diagnosis Comments POCT LIPID PANEL Routine 04/19/2018 9:09 AM CDT 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[place] artery of [place] heart with stable angina pectoris (CMS/HCC) documented in this encounter Results * POCT lipid panel (04/19/2018 9:09 AM CDT) Cholesterol, POC 192 mg/dL HDL, POC 29 mg/dL Triglycerides, POC 226 mg/dL LDL Cholesterol POC 118 mg/dL Chol/HDL Ratio, POC 6.7 Non-HDL Cholesterol, POC 164 mg/dL Cholesterol Total, POC 192 mg/dL Blood specimen (specimen) 04/19/2018 9:09 AM CDT us Abelardo Petit MD POINT OF CARE TEST ORDER ROVERTO Final Result documented in this encounter Visit Diagnoses Diagnosis 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[place] artery of [place] heart with stable angina pectoris (HCC)- Primary History of coronary artery stent placement documented in this encounter Care Teams Senior Officer Relationship Specialty Start Date End Date Eugenia Hughes MD PCP - General Family Practice 04/19/18 10/16/19 documented as of this encounter
--- OUTSIDE RECORDS SUMMARY | 2024-08-18 13:14 | XMS_ITS | Encounter Summary ---
Author Organization [facility] Healthcare Address [address] [place] [address] Care Team Providers Care Bid Writer Name Role Phone Aditya Castro MD Primary Care Provider [phone] Reason for Visit * Auth/Cert Specialty Diagnoses / Procedures Referred By Contac t Referred To Contact Diagnoses Angina pectoris (HCC) NON STEMI CARDS FIRM, PD, covid neg Procedures N/A Referral ID Status Reason Start Date Expiration Date Visits Re quested Visits Authorized [id number] 1 1 Encounter Details Date Type Department Care Team (Late st Contact Info) Description 06/07/2022 12:00 PM CDT - 06/07/2022 2:30 PM CDT Surgery [facility] [address] [place] [address] Champ Osborne MD PhD [address] [place] [address] PCI MARIELLA MAJOR CORONARY [id number] - [id number] Surgery Details Date/Time Status Location OR Service Patient Class Case Class Case Type Trauma Case? 06/07/2022 12:00 PM Posted [facility] CARDIAC RESEARCH ASSISTANT MEMBER CCL 01 Cardiovascular Inpatient Time Sensitive - 1 Week Panel 1 Procedure LRB Anes Op Region Wound Class Comments PCI MARIELLA MAJOR CORONARY C9600 - 10194 N/A Conscious Sedation CIRC Surgeon Surgeon Role Service Panel Champ Osborne MD PhD Primary Cardiovascular 1 Fernando Torres MD Fellow Cardiovas cular 1 Case Notes Transfer in from [facility] documented in this encounter Social History Tobacco [...] on file Legal Sex Male 3:42 AM PERSONAL SECRETARY Gender Identity Not on file Sexual Orientation Not on file documented as of this encounter Last Filed Vital Signs Vital Sign Reading Time Taken Comments Blood Pressure 155/69 06/07/2022 11:15 AM CDT Pulse 73 06/07/2022 11:15 AM CDT Temperature 37 ??C (98.6 ??F) 06/07/2022 11: 15 AM CDT Respiratory Rate 10 06/07/2022 11:1 5 AM CDT Oxygen Saturation 96% 06/07/2022 11: 15 AM CDT Inhaled Oxygen Concentration - - Weight 140.8 kg (310 lb 6.4 oz) 06/06/2022 8:00 PM CDT Height 177.8 cm (5' 10 ) 06/04/2022 9:35 PM CDT Body Mass Index 37.36 06/04/2022 9:35 PM CDT documented in this encounter Discharge Summaries * Frank Bowers MD - 06/29/2022 10:13 AM CST Inpatient Discharge Summary BRIEF OVERVIEW Admitting Provider: Catherine Adams MD Discharge Provider: Frank Bowers MD Primary Care Physician at Discharge: Aditya Castro MD [phone] Admission Date: 06/04/2022 Discharge Date: 06/29/2022 Admission Location: [facility] Problems/Diagnoses: Principal Problem: NSTEMI (non-ST elevated myocardial infarction) (CMS/HCC) (HCC) Active Problems: Cardiogenic shock (HCC) Type 1 [...] gout, BEN on CPAP initially presented to [facility] for n/v andchest pain, transferred to [facility] for LHC/PCI, now presenting to CCU s/p complex PCI with impella and intubated. At the OSH he presented with 3d generalized weakness, chills, ROONEY, n/v, chest pain relieved by sublingual ntg. His labs were notable for trop 1.0-->1.09-->0.729, BNP [address]. He had a CT CAP showing cholelithiasis [...] circumflex as optimal treatment, prompting transfer to [place]. He arrived at [place] 06/05. EKG showed sinus bradycardia, 1st deg [...] * NSTEMI (non-ST elevated myocardial infarction) (CMS/HCC) ([facility]) With interventions described above. Post-transfer and post-cath, [...] discharge given pressure tolerance. Atrial fibrillation (CMS/HCC) (HCC) He was in atrial fibrillation on transfer [...] HFrEF (heart failure with reduced ejection fraction) ([facility]) He developed cardiogenic shock requiring impella in the setting of cath c/b AHRF 2/2 pulmonary edema. Post-cath, TTE demonstrated recovered EF 65% with grade I diastolic dysfunction. Volume was managed with CRRT in ICU, then by resumption of PD on the medical floor. In discussion with nephrology, low dose losartan was started for GDMT in addition to metoprolol. ESRD (end stage renal disease) ([facility]) ([facility]) Renal consulted on admission with history of ESRD on PD. While in ICU, temporary dialysis catheter was placed to facilitate CRRT for volume removal. Upon transfer to the floor, PD was continued and tolerated well. He was continued on his home vitamins for renal bone mineral disease and phoslo. Trialysis removed 06/25. Type 1 diabetes mellitus ([facility]) Prior to admission, his A1c was well [...] REMOVE PERC ARTERIAL VAD (IMPELLA), DIFFERENT SESSION [id number] Other Procedures: Pertinent Test Results: See hospital [...] one tablet three times daily Outpatient Follow-Up: ONAL SECRETARY documented in this encounter Discharge Instructions * Discharge Instructions* Frank Bowers MD - 06/29/2022 9:19 AM PERSONAL SECRETARY Mr. Adelia Garvin, You were admitted to the hospital for chest pain, and you were seen by our cardiology specialists where you received a new stent placed. As you have improved and are tolerating your insulin pump wellas well as your dialysis, you are stable to be discharged to the rehab facility. Continue Omnipod 5 insulin pump with Sprig G6 CGM at home settings: TIME BASAL [...] yearly or sooner as indicated by your medical language specialist Pending results for primary service or primary care physician to follow up on: None at time of discharge Follow Up Plan: Follow up with endocrinology near his home 1-2 weeks after discharge to reassess glycemic management and adjust insulin pump settings as needed. ONAL SECRETARY ONAL SECRETARY documented in this encounter Medications at Time [...] 0800 0.8 units/hour 1999 5.8 units/hour 06/29/2022 losartan (COZAAR) 25 mg [...] Disposition Home;Inpatient (Acute) Rehab Hospital Specify Facility [facility] Facility Contact Number Contact- Minerva Hurt- [phone] for report- [phone] fax [phone] Equipment/Provider Needs No Home Needs Identified Discharge Additional Assistance Does the patient need discharge transport arranged? No (family to transport to [facility]) Post Discharge Care Provider Post Discharge Care Plan DC Summary and post acute care report has been faxed to next level of careprovider (see Follow Up Providers) Patient is medically stable to discharge home today. Patient will have transportation provided by the patient's brother. Patient instructed to f/u with PCP after release from [facility]. No additional needs noted at this time. ONAL SECRETARY ONAL SECRETARY * Frank Bowers MD - 06/29/2022 10:12 AM CST Daily Progress Note Division of Hospital Medicine Name: Adelia Garvin Jr. Today: June 29, 2022 : 1970 Age: 51 y.o. male Admit: 06/04/2022 Bed: [id number] Subjective Chief complaint: NSTEMI Interval History: Pt [...] 06/29/2022 0815 Gross per 24 hour Intake 12937 ml Output 74321 ml Net -664 ml Physical Exam Constitutional: [...] * NSTEMI (non-ST elevated myocardial infarction) (CMS/HCC) ([facility]) Assessment & Plan With recurrent chest pain [...] rehab today ESRD (end stage renal disease) ([facility]) ([facility]) Assessment & Plan - Renal consulted, s/p CRRT in the ICU now back on PD. Tolerated well and nephrology following - Trialysis catheter removed - Continue vitamins for renal bone mineral disease. Type 1 diabetes mellitus ([facility]) Assessment & Plan A1c well controlled on [...] start of peritoneal dialysis session Atrial fibrillation ([facility]) ([facility]) Assessment & Plan Converted to NSR overnight [...] including recommendations regarding insulin pump at discharge ONAL SECRETARY ONAL SECRETARY * Janelle Romero, OT - 06/29/2022 9:30 [...] not assigned to this patient, please call [phone]. 06/29/22 0930 General Session Type Treatment OT [...] demonstrate modified independence/independence with ADL task completion. ONAL SECRETARY * Kip Julian PT - 06/29/2022 8:53 AM CST Physical Therapy 06/29/22 0853 General PT Missed Visit Reason Patient declined ONAL SECRETARY * Frank Bowers MD - 06/28/2022 3:30 PM CST Daily Progress Note Division of Hospital Medicine Name: Adelia Garvin Jr. Today: June 28, 2022 : 1970 Age: 51 y.o. male Admit: 06/04/2022 Bed: [id number] Subjective Chief complaint: NSTEMI Interval History: Pt [...] 06/28/2022 1300 Gross per 24 hour Intake 49599 ml Output 26713 ml Net -851 ml Physical Exam Constitutional: [...] by: Félix Chahal M.D. Assessment/Plan Cardiogenic shock (HCC) Assessment & Plan Secondary to NSTEMI, s/p Impella since removed on 06/10. Resolved. * NSTEMI (non-ST elevated myocardial infarction) (CMS/[facility]) ([facility]) Assessment & Plan With recurrent chest pain [...] been accepted ESRD (end stage renal disease) ([facility]) ([facility]) Assessment & Plan - Renal consulted, s/p CRRT in the ICU now back on PD. Tolerated well and nephrology following - Trialysis catheter removed - Continue vitamins for renal bone mineral disease. Type 1 diabetes mellitus ([facility]) Assessment & Plan A1c well controlled on [...] increase NPH 45u before PD Atrial fibrillation ([facility]) ([facility]) Assessment & Plan Converted to NSR overnight on 06/24. CHADsVASc of 4 not on anticoagulation prior to admission. - cardiology consulted - recommended ongoing rate control - holding off on a/c with high risk for bleeding while on DAPT - reduced metop to 25mg BID in the setting of hypotension, HR 70s NSR Acute on chronic HFrEF (heart failure with reduced ejection fraction) ([facility]) Assessment & Plan C/b cardiogenic shock requiring [...] and trend Hb. Acute hypoxemic respiratory failure ([facility]) Assessment & Plan Secondary to ACS and flash pulmonary edema, since resolved and extubated on 06/19. Patient passed barium swallow on 06/21. ONAL SECRETARY * Shelbie Garcia, RD - 06/28/2022 2:38 [...] Diabetes mellitus type I (HCC) Dialysis patient ([facility]) (HCC) ESRD on dialysis ([facility]) ([facility]) GERD (gastroesophageal reflux disease) Hyperlipidemia Hypertension Sleep [...] of Weight Used for Estimated Protein : [employer] Protein Needs Based on g/k.5 Total Protein [...] 06/28/2022 1300 Gross per 24 hour Intake 48351 ml Output 43434 ml Net -851 ml Gastrointestinal Gastrointestinal (WDL): [...] Comments: Heart Healthy Diet Question Answer Comment ([facility]) Diet type Restricted Fat / Sodium Restriction: 2 GM Sodium Diabetic: Consistent Carbohydrate 06/22/22 19206/21/22 2100 Bedtime snack At bedtime Comments: If [...] of his insulin pump. Pt seen by OFFICE CLERK ROUTINE today. Can continue on regular textured foods [...] Stool patterns, Weight changes Shelbie Garcia RD [phone] ONAL SECRETARY * Carey East MD - 06/27/2022 4:57 PM CST Daily Progress Note Division of Hospital Medicine Name: Adelia Garvin Jr. Today: June 27, 2022 : 1970 Age: 51 y.o. male Admit: 06/04/2022 Bed: [id number] Subjective Chief complaint: CAD s/p PCI, T1DM, [...] 06/27/2022 0745 Gross per 24 hour Intake 56358 ml Output 39487 ml Net -1949 ml Physical Exam Constitutional: [...] transferred to the floor, improving. Atrial fibrillation ([facility]) ([facility]) Assessment & Plan Converted to NSR overnight on 06/24. CHADsVASc of 4 not on anticoagulation prior to admission. - cardiology consulted - recommended ongoing rate control - holding off on a/c with high risk for bleeding while on DAPT - reduced metop to 25mg BID in the setting of hypotension, HR 70s NSR Acute on chronic HFrEF (heart failure with reduced ejection fraction) ([facility]) Assessment & Plan C/b cardiogenic shock requiring impella in the setting of cath and AHRF 2/2 pulmonary edema, now resolved. TTE demonstrating recovered EF 65% with grade I diastolic dysfunction. - metop as above - continue low dose losartan 12.5mg daily, ok per nephro - volume management per PD ESRD (end stage renal disease) ([facility]) ([facility]) Assessment & Plan - Renal consulted, s/p CRRT in the ICU now back on PD. - Continue vitamins for renal bone mineral disease - continue phoslo Type 1 diabetes mellitus ([facility]) Assessment & Plan A1c well controlled on [...] PD * NSTEMI (non-ST elevated myocardial infarction) ([facility]) ([facility]) Assessment & Plan With recurrent chest pain [...] recs, CM aware and searching for facilities ONAL SECRETARY * Arleen Andre MD - 06/27/2022 3:50 PM CST ASSESSMENT AND RECOMMENDATIONS ESRD: He is doing well on the current PD regimen. Ultrafilters approximately 9116-1114 ml/day. Continue current regimen Hypokalemia: Start Kcl [...] Type: Continuous Cycling Peritoneal Dialysis Machine Type: [place] HomeChoice Pro Dianeal Solution: Dextrose 2.5% in 5000 mL (+ 7.5% last fill) Dwell Time (min): 77 min Drain Time (min): 39 min Initial Drain Volume (mL): 690 mL Last Fill Volume (mL): 785 mL Fill Volume In (mL): 99485 mL Effluent Volume Out (mL): 81230 ml Balance This Exchange (mL): 1944 mL [...] edema I/O last 2 completed shifts: In: 72224 [P.O.:440; Other:31232] Out: 79451 [Urine:300; Other:74730] I have reviewed current medications and the [...] FERRITIN 2,062 (H) 06/07/2022 Arleen Andre MD car sales associate Division of Nephrology ONAL SECRETARY * So Lawrence, OT - 06/27/2022 9:37 [...] not assigned to this patient, please call [phone]. 06/27/22 0937 General Session Type Treatment OT [...] demonstrate modified independence/independence with ADL task completion. ONAL SECRETARY * Carlos Dupree MD - 06/26/2022 4:13 PM CST Endocrinology & Diabetes Progress Note Patient: Adelia Garvin Jr., 51 y.o. male (: 1970) Room: [place] [id number] ( ) LOS: 22 Adelia Garvin Jr. [...] labs, imaging, and diagnostics independently reviewed in [facility] and commented on below. Lab Results Component [...] agitation. 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, with skilled nursing use of insulin, complicated by ESRD on PD, CAD s/p PCI, CHF - HbA1c 7.4% - Uses Omnipod and Dexcom G6 at home, not currently on this- doesn't have the supplies -On significantly higher basal rates on pump at night due to peritoneal dialysis -home settings: Basal rate 0330 >>1.7 0800 >> 0.8 2000 >> 5.8 ICR1:6.5 ISF1:25 [id number] TIA 4 Inpatient glycemic management complicated by [...] ## Discharge Planning - Follow-up with home sourcing analyst -- Carlos Dupree MD Endocrinology, Metabolism, & Lipid Research Contact Info: New Consults: [phone]) General Endocrine (Non-Diabetes): [phone] (Check 'Treatment Team' assignment for Diabetes 1 vs 2 vs 3) Diabetes 1: Diabetes Fellow: [phone] Diabetes 2: Dora Delarosa, PRODUCT MANAGEMENT SPECIALIST: [phone] Diabetes 3: See Treatment Team Provider (or call Dora Delarosa, above) Diabetes After-Hours & Weekends: Diabetes Fellow ONAL SECRETARY * Carey East MD - 06/26/2022 12:39 PM CST Daily Progress Note Division of Hospital Medicine Name: Adelia Garvin Jr. Today: June 26, 2022 : 1970 Age: 51 y.o. male Admit: 06/04/2022 Bed: [id number] Subjective Chief complaint: CAD s/p PCI, T1DM, [...] 06/26/2022 1110 Gross per 24 hour Intake 10179 ml Output 91295 ml Net -1847 ml Physical Exam Constitutional: [...] Glu2: RN/MD Notified POCT glucose Collection Time: 06/26/22 9:07 [...] transferred to the floor, improving. Atrial fibrillation ([facility]) ([facility]) Assessment & Plan Converted to NSR overnight on 06/24. CHADsVASc of 4 not on anticoagulation prior to admission. - cardiology consulted - recommended ongoing rate control - holding off on a/c with high risk for bleeding while on DAPT - reduce metop to 25mg BID today in the setting of hypotension, HR 60s Acute on chronic HFrEF (heart failure with reduced ejection fraction) ([facility]) Assessment & Plan C/b cardiogenic shock requiring impella in the setting of cath and AHRF 2/2 pulmonary edema, now resolved. TTE demonstrating recovered EF 65% with grade I diastolic dysfunction. - metop as above - continue low dose losartan 12.5mg daily, ok per nephro - volume management per PD ESRD (end stage renal disease) ([facility]) ([facility]) Assessment & Plan - Renal consulted, s/p CRRT in the ICU now back on PD. - Trialysis catheter still in place --> removed today - Continue vitamins for renal bone mineral disease - resume phoslo today Type 1 diabetes mellitus (HCC) Assessment & [...] PD * NSTEMI (non-ST elevated myocardial infarction) ([facility]) ([facility]) Assessment & Plan With recurrent chest pain. [...] acute rehab per PT recs, CM aware ONAL SECRETARY * Carey East MD - 06/25/2022 11:51 AM CDT Daily Progress Note Division of Hospital Medicine Name: Adelia Garvin Jr. Today: June 25, 2022 : 1970 Age: 51 y.o. male Admit: 06/04/2022 Bed: [id number] Subjective Chief complaint: CAD s/p PCI, T1DM, [...] 06/25/2022 0600 Gross per 24 hour Intake 87831 ml Output 36493 ml Net -2404 ml Physical Exam Constitutional: [...] RN/MD Notified POCT glucose Collection Time: 06/25/22 11:42 [...] to the floor, improving. Atrial fibrillation (CMS/HCC) (HCC) Assessment & Plan Converted to NSR overnight. CHADsVASc of 4 not on anticoagulation prior to admission. - cardiology consulted - recommended ongoing rate control - holding off on a/c with high risk for bleeding while on DAPT - continue metop 50mg BID Acute on chronic HFrEF (heart failure with reduced ejection fraction) ([facility]) Assessment & Plan C/b cardiogenic shock requiring impella in the setting of cath and AHRF 2/2 pulmonary edema, now resolved. TTE demonstrating recovered EF 65% with grade I diastolic dysfunction. - metop as above - start low dose losartan 12.5mg daily today, ok per nephro - volume management per PD ESRD (end stage renal disease) ([facility]) ([facility]) Assessment & Plan - Renal consulted, s/p CRRT in the ICU now back on PD. - Trialysis catheter still in place --> removed today - Continue vitamins for renal bone mineral disease. Type 1 diabetes mellitus ([facility]) Assessment & Plan A1c well controlled on [...] today * NSTEMI (non-ST elevated myocardial infarction) ([facility]) ([facility]) Assessment & Plan With recurrent chest pain. [...] decrease to daily Acute hypoxemic respiratory failure ([facility]) Assessment & Plan Secondary to ACS and flash pulmonary edema, since resolved and extubated on 06/19. Patient passed barium swallow on 06/21. Cardiogenic shock ([facility]) Assessment & Plan Secondary to NSTEMI, s/p Impella since removed on 06/10. Resolved. Post-acute planning: - inpatient acute rehab per PT recs, CM aware * Chula Melgar OT - [...] mobility Prior Function Prior Function Level of [place]: Independent with ADLs, Independent functional transfers, Independent [...] (increased time required) Compliance/Behavior: Easy to engage Braulio Cognitive Assessment (MOCA) MOCA Version: Version 3 [...] - Patient will complete toileting tasks with 11/05/22 11/18/22 -- Goal Details: Modified independence. Problem: Transfers [...] not assigned to this patient, please call [phone]. * Carey East MD - 06/24/2022 4:30 PM CDT Daily Progress Note Division of Hospital Medicine Name: Adelia Garvin Jr. Today: June 24, 2022 : 1970 Age: 51 y.o. male Admit: 06/04/2022 Bed: [id number] Subjective Chief complaint: CAD s/p PCI, T1DM, [...] 06/24/2022 0536 Gross per 24 hour Intake 72498 ml Output 23279 ml Net -347 ml Physical Exam Constitutional: [...] Glu2: RN/ Notified POCT glucose Collection Time: 06/24/22 9:54 [...] with new chest pressure today. Atrial fibrillation (CMS/[facility]) ([facility]) Assessment & Plan Currently rated controlled with metoprolol, CHADsVASc of 4 not on anticoagulation prior to admission. Rates have been consistently 90-100, not optimal for HF and possibly contributing to demand/chestpain yesterday. - cardiology consulted - consolidated metop to 50mg BID today --> will uptitrate as tolerated by BP for improved HR control Acute on chronic HFrEF (heart failure with reduced ejection fraction) ([facility]) Assessment & Plan C/b cardiogenic shock requiring impella in the setting of cath and AHRF 2/2 pulmonary edema, now resolved. TTE demonstrating recovered EF 65% with grade I diastolic dysfunction. - metop as above - not on NICOLÁS/ARB due to ESRD, d/w nephro - volume management per PD ESRD (end stage renal disease) (CMS/HCC) ([facility]) Assessment & Plan - Renal consulted, s/p [...] use * NSTEMI (non-ST elevated myocardial infarction) (CMS/HCC) [...] Weakness, N/V, diarrhea, chest pain. Resp failure, [id number]: S/p complex PCI and Impella placement for [...] No Prior Function Prior Function Level of [place]: Independent functional transfers, Independent with ambulation Lives [...] treatment team and contact the PT or RECONCILIATION MACHINE OPERATOR currently assigned to this patient. If a physical therapy clinician is not assigned to this patient, please call [phone]. * Carey East MD - 06/23/2022 4:37 PM CDT Daily Progress Note Division of Hospital Medicine Name: Adelia Garvin Jr. Today: June 23, 2022 : 1970 Age: 51 y.o. male Admit: 06/04/2022 Bed: [id number] Subjective Chief complaint: CAD s/p PCI, T1DM, [...] 06/23/2022 0625 Gross per 24 hour Intake 26919 ml Output 48206 ml Net -2575 ml Physical Exam Constitutional: [...] EKG/Min 100 BPM Atrial Rate 100 BPM AR-Interval (MSEC) 182 ms QRS-Interval (MSEC) 106 ms QT-Interval (MSEC) 380 ms QTc 490 ms R Elburn -47 degrees T Elburn 105 degrees Diagnosis Sinus rhythm with Premature [...] since removed on 06/10. Resolved. Atrial fibrillation ([facility]) ([facility]) Assessment & Plan Currently rated controlled with metoprolol, CHADsVASc of 4 not on anticoagulation prior to admission. - cardiology consulted - metop as elsewhere Acute on chronic HFrEF (heart failure with reduced ejection fraction) ([facility]) Assessment & Plan C/b cardiogenic shock requiring impella in the setting of cath and AHRF 2/2 pulmonary edema, now resolved. TTE demonstrating recovered EF 65% with grade I diastolic dysfunction. - consolidate metoprolol today: 25 q6h --> 50mg BID - not on NICOLÁS/ARB due to ESRD, will d/w nephro - volume management per PD ESRD (end stage renal disease) ([facility]) ([facility]) Assessment & Plan - Renal consulted, s/p CRRT in the ICU now back on PD. - Trialysis catheter still in place --> will remove tomorrow - Continue vitamins for renal bone mineral disease. Anemia Assessment & Plan Stable, likely 2/2 anemia from ESRD, no evidence of bleeding. Underwent CT c/a/p without internal hematoma. - Monitor and trend Hb. Acute hypoxemic respiratory failure ([facility]) Assessment & Plan Secondary to ACS and flash pulmonary edema, since resolved and extubated on 06/19. Patient passed barium swallow on 06/21. Type 1 diabetes mellitus ([facility]) Assessment & Plan A1c well controlled on [...] use * NSTEMI (non-ST elevated myocardial infarction) ([facility]) ([facility]) Assessment & Plan With recurrent chest pain. [...] gout, BEN on CPAP initially presented to [facility] for generalized weakness, n/v, diarrhea, and chest pain now being transferred for LHC/PCI 06/06. Objective Past Medical History: Diagnosis Date CAD (coronary artery disease) Chest pain Diabetes mellitus (HCC) Diabetes mellitus type I (HCC) Dialysis patient ([facility]) (HCC) ESRD on dialysis ([facility]) (HCC) GERD (gastroesophageal reflux disease) Hyperlipidemia Hypertension [...] of Weight Used for Estimated Protein : [employer] Protein Needs Based on g/k.5 Total Protein [...] 06/23/2022 0625 Gross per 24 hour Intake 32470 ml Output 53786 ml Net -2575 ml Gastrointestinal Gastrointestinal (WDL): [...] Comments: Heart Healthy Diet Question Answer Comment ([facility]) Diet type Restricted Fat / Sodium Restriction: [...] Monitoring and Evaluation: Supplement tolerance Ronny Vasquez MS RDN LD Strap Stitcher RD number [phone] * Luiz Lewis DO - 06/22/2022 8:22 PM CDT Transfer Note [...] at 06/22/20221944 Gross per 24 hour Intake 33713 ml Output 68390 ml Net -2209 ml Constitutional - chronically [...] Impella since removed on 06/10. Atrial fibrillation ([facility]) ([facility]) Assessment & Plan -Currently rated controlled with metoprolol, CHADsVASc of 4 not on anticoagulation prior to admission. -Follow cardiology for initiation of AC. Acute on chronic HFrEF (heart failure with reduced ejection fraction) ([facility]) Assessment & Plan -With acute exacerbation complicated by pulmonary edema since resolved. -Repeat TTE following Impella removal showed recovered EF of 65% with grade I diastolic dysfunction. -Continue metoprolol tartrate, start GDMT per cardiology. ESRD (end stage renal disease) (CMS/HCC) ([facility]) Assessment & Plan -Renal consulted, s/p CRRT [...] 1 diabetes mellitus (HCC) Assessment & Plan -Patient on insulin pump at home. -Endocrine consulted, patient currently on basal bolus regimen with NPH for hyperglycemic episodes. -Continue insulin regimen per endocrine. * NSTEMI (non-ST elevated myocardial infarction) (CMS/HCC) (HCC) Assessment & Plan -Patient with multiple risk factors, s/p complex PCI to LCx and OM bifurcation with MARIELLA. -Continue DAPT with aspirin, Plavix and atorvastatin. Luiz Lewis DO [facility] * Tyra De La Torre MD - 06/22/2022 4:17 PM CDT CCU DAILY PROGRESS Patient: Adelia Garvin Jr. Room: [place] [address]/[place] [address] Date: 06/22/2022 Summary Statement: Adelia Garvin Jr. is a 51 y.o. male with a history of CHF (EF 50% 2016), Afib (not on AC), HTN, CAD s/p stent 04/06 and 3 stent 12/07, T1DM (insulin pump at home), ESRD on PD, HLD, GERD, hyperparathyroidism, DDD, OA, gout, BEN on CPAP initially presented to OSH for n/v and chest pain, transferred to [facility] for LHC/PCI, who presented to CCU s/p [...] 06/22/2022 0500 Gross per 24 hour Intake 38468 ml Output 94464 ml Net -1759 ml Ventilator Settings: N/a [...] not displayed. LFTs Recent Labs Lab Units 06/21/22 2155 ALK PHOS Units/L 111 BILIRUBIN TOTAL mg/dL 0.5 TOTAL PROTEIN g/dL 5.9* ALT Units/L 32 AST Units/L 48 Coags Recent Labs Lab Units 06/19/22 2054 APTT sec 37 Cardiac Enzymes No results [...] in anterior wall and anterior septem sugegsting CAD/MS in the LAD territory. 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 #Nutrition - continue tube feeds - OFFICE CLERK ROUTINE eval - remove NGT and restart diet [...] HEME/ONC #Anemia Hgb 9.5 on admission to [facility] and 7.8 on arrival to CCU. Hgb [...] plan with the ICU team and other medical/apprenticeship consultant staff. * Tyra De La Torre MD - 06/21/2022 9:15 AM CDT CCU DAILY PROGRESS Patient: Adelia Garvin Jr. Room: [id number] Date: 06/21/2022 Summary Statement: Adelia Garvin Jr. is a 51 y.o. male with a history of CHF (EF 50% 2016), Afib (not on AC), HTN, CAD s/p stent 04/06 and 3 stent 12/07, T1DM (insulin pump at home), ESRD on PD, HLD, GERD, hyperparathyroidism, DDD, OA, gout, BEN on CPAP initially presented to OSH for n/v and chest pain, transferred to [facility] for LHC/PCI, who presented to CCU s/p [...] Output: Intake/Output Summary (Last 24 hours) at 06/21/2022 0915 Last data filed at 06/21/2022 0900 Gross [...] in anterior wall and anterior septem sugegsting CAD/MS in the LAD territory. 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 #Nutrition - continue tube feeds - OFFICE CLERK ROUTINE eval - remove NGT and restart diet [...] held iso diarrhea; transition to PO pending [facility] - glargine 33U, humalog 6U q4h + SSI - if TF: humalog to 8u q4h - if PO: transition short-acting to humalog 4u post-meal - continue to adjust regimen as patient transitions from TF to oral intake HEME/ONC #Anemia Hgb 9.5 on admission to [facility] and 7.8 on arrival to CCU. Hgb [...] plan with the ICU team and other medical/apprenticeship consultant staff. * Jess Redmond, PT - 06/21/2022 7:55 AM CDT Physical Therapy 06/21/22 9567 General PT Missed Visit Reason Bedrest Recommendation/Plan [...] DAILY PROGRESS Patient: Adelia Garvin Jr. Room: [place] [address]/[place] [address] Date: 06/20/2022 Summary Statement: Adelia Garvin Jr. is a 51 y.o. male with a history of CHF (EF 50% 2016), Afib (not on AC), HTN, CAD s/p stent 04/06 and 3 stent 12/07, T1DM (insulin pump at home), ESRD on PD, HLD, GERD, hyperparathyroidism, DDD, OA, gout, BEN on CPAP initially presented to OSH for n/v and chest pain, transferred to [facility] for LHC/PCI, who presented to CCU s/p [...] gtt - continue amio gtt 0.5 - OFFICE CLERK ROUTINE eval for possible removal of NGT - [...] 1,400 mL/hr, Last Rate: 1,400 mL/hr (06/20/22 021) NxStage 4-potassium/2.5-calcium, 1,400 mL/hr, Last Rate: 1,400 [...] CBC Recent Labs Lab Units 06/20/22 0025 06/19/22 2325 06/19/224 WBC K/cumm -- -- 8.4 HEMOGLOBIN g/dL [...] Lab Results Lab Value Date/Time TROPONINI 0.03 03/21/20172 TROPONINI 0.03 03/21/2017 0715 TROPONINI <0.03 11/06/2013 [...] costophrenic angle isexcluded. No pneumothorax. Dictated by: Jresey Morales MD The radiology attending physician has [...] in anterior wall and anterior septem sugegsting CAD/MS in the LAD territory. LVEF is in [...] gout, BEN on CPAP initially presented to [facility] for n/v and chest pain, transferred to [facility] for LHC/PCI, who presented to the CCU [...] at 8.4 - antibiotics discontinued. 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 Hgb [...] A/C was because he started plavix and proof carrier decided to stop Eliquis. DIAGNOSTIC REVIEW Blood [...] plan with the ICU team and other medical/apprenticeship consultant staff. * Bobby Mary MD - [...] 93% I/O last 2 completed shifts: In: 65749.4 [I.V.:1014.4; Other:51196; NG/GT:190; IV Piggyback:420] Out: 28254 [Other:74257] I/O this shift: In: 480.2 [I.V.:480.2] Out: [...] DAILY PROGRESS Patient: Adelia Garvin Jr. Room: [id number] Date: 06/19/2022 Summary Statement: Adelia Garvin Jr. is a 51 y.o. male with a history of CHF (EF 50% 2016), Afib (not on AC), HTN, CAD s/p stent 04/06 and 3 stent 12/07, T1DM (insulin pump at home), ESRD on PD, HLD, GERD, hyperparathyroidism, DDD, OA, gout, BEN on CPAP initially presented to OSH for n/v and chest pain, transferred to [facility] for LHC/PCI, who presented to CCU s/p [...] 06/19/2022 0500 Gross per 24 hour Intake 62252.7 ml Output 24898 ml Net -2782.3 ml Ventilator Settings: 20/500/80/12 [...] in anterior wall and anterior septem sugegsting CAD/MS in the LAD territory. 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 Hgb [...] MD Resident Physician, Internal Medicine Cosigned by aRfa Youngblood MD PhD at 06/19/2022 1:07 PM [...] plan with the ICU team and other medical/apprenticeship consultant staff. * Jeffrey Green MD - 06/18/2022 6:17 AM CDT CCU DAILY PROGRESS Patient: Adelia Garvin Jr. Room: [id number] Date: 06/18/2022 Summary Statement: Adelia Garvin Jr. is a 51 y.o. male with a history of CHF (EF 50% 2017), Afib (not on AC), HTN, CAD s/p stent 04/06 and 3 stent 12/07, T1DM (insulin pump at home), ESRD on PD, HLD, GERD, hyperparathyroidism, DDD, OA, gout, BEN on CPAP initially presented to OSH for n/v and chest pain, transferred to [facility] for LHC/PCI, who presented to CCU s/p [...] 0-1.5 mcg/kg/hr, Last Rate: 0.3 mcg/kg/hr (06/18/22 050) insulin regular, 0-30 Units/hr, Last Rate: 6 Units/hr (06/18/22 05) And dextrose 5%, 40 mL/hr peritoneal fluid with or without additives for CCPD, peritoneal fluid with or without additives for CCPD, peritoneal fluid with or without additives for CCPD, fentaNYL, 0-400 mcg/hr, Last Rate: 175 mcg/hr (06/18/22 050) [Held by Provider] heparin, 0-33 Units/kg/hr, Last Rate: 10.5 Units/kg/hr (06/18/22 0554) midazolam, 0-12 mg/hr, Last Rate: 2.5 mg/hr (06/18/22499) norepinephrine, 0-2 mcg/kg/min (Dosing Weight), Last Rate: 0.0001 mcg/kg/min (06/18/22551) propofol, 0-50 mcg/kg/min, Last Rate: Stopped (06/15/22 1018) sodium chloride 0.9%, 10 mL/hr, Last Rate: 10 mL/hr (06/12/22 0834) sodium chloride 0.9%, 3-12 mL/hr sodium chloride 0.9%, 3-12 mL/hr, Last Rate: 3 mL/hr (06/18/22 050) PRN Meds:. acetaminophen albuterol HFA bisacodyL bisacodyl [...] 06/18/2022 0500 Gross per 24 hour Intake 98151.41 ml Output 29631 ml Net 897.41 ml Ventilator Settings: 20/500/80/12 [...] 3.5 Chem Recent Labs Lab Units 06/18/22 0510 06/17/22 22406/17/222116 SODIUM mmol/L -- -- 142 POTASSIUM PLASMA [...] not displayed. LFTs Recent Labs Lab Units 06/17/22 2117 ALK PHOS Units/L 181* BILIRUBIN TOTAL mg/dL [...] Analysis ABG Recent Labs Lab Units 06/18/22 0513 PH ART 7.33* PCO2 ART mmHg 39 [...] in anterior wall and anterior septem sugegsting CAD/MS in the LAD territory. 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 Hgb [...] plan with the ICU team and other medical/apprenticeship consultant staff. * Jeffrey Green MD - 06/17/2022 6:39 AM CDT CCU DAILY PROGRESS Patient: Adelia Garvin Jr. Room: [id number] Date: 06/17/2022 Summary Statement: Adelia Garvin Jr. is a 51 y.o. male with a history of CHF (EF 50% 2016), Afib (not on AC), HTN, CAD s/p stent 04/06 and 3 stent 12/07, T1DM (insulin pump at home), ESRD on PD, HLD, GERD, hyperparathyroidism, DDD, OA, gout, BEN on CPAP initially presented to OSH for n/v and chest pain, transferred to [facility] for LHC/PCI, who presented to CCU s/p [...] 0-400 mcg/hr, Last Rate: 200 mcg/hr (06/16/22 2874) heparin, 0-33 Units/kg/hr, Last Rate: 10.5 Units/kg/hr [...] Chem Recent Labs Lab Units 06/17/22 0613 06/16/227 06/16/222051 SODIUM mmol/L -- -- 140 POTASSIUM PLASMA [...] not displayed. LFTs Recent Labs Lab Units 06/16/222051 ALK PHOS Units/L 197* BILIRUBIN TOTAL mg/dL [...] in anterior wall and anterior septem sugegsting CAD/MS in the LAD territory. 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 Hgb [...] plan with the ICU team and other medical/apprenticeship consultant staff. * Tyra De La Torre MD - 06/16/2022 5:49 AM CDT CCU DAILY PROGRESS Patient: Adelia Garvin Jr. Room: [place] [address]/[place] [address] Date: 06/16/2022 Summary Statement: Adelia Garvin Jr. is a 51 y.o. male with a history of CHF (EF 50% 2016), Afib (not on AC), HTN, CAD s/p stent 04/06 and 3 stent 12/07, T1DM (insulin pump at home), ESRD on PD, HLD, GERD, hyperparathyroidism, DDD, OA, gout, BEN on CPAP initially presented to OSH for n/v and chest pain, transferred to [facility] for LHC/PCI, who presented to CCU s/p [...] in anterior wall and anterior septem sugegsting CAD/MS in the LAD territory. 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 Hgb [...] plan with the ICU team and other medical/apprenticeship consultant staff. * Zoila Sainz - 06/15/2022 4:15 PM CDT 06/15/22 1614 PT Last Visit PT Missed Visit Reason Sedated (pt intubated/sedated) Recommendation/Plan PT Frequency Monitor status PT - Next Appointment 06/17/22 Cosigned by Faby Poole PT at 06/15/2022 4:45 PM CDT * Tyra De La Torre MD - 06/15/2022 5:23 AM CDT CCU DAILY PROGRESS Patient: Adelia Garvin Jr. Room: [id number] Date: 06/15/2022 Summary Statement: Adelia Garvin Jr. is a 51 y.o. male with a history of CHF (EF 50% 2017), Afib (not on AC), HTN, CAD s/p stent 04/06 and 3 stent 12/07, T1DM (insulin pump at home), ESRD on PD, HLD, GERD, hyperparathyroidism, DDD, OA, gout, BEN on CPAP initially presented to OSH for n/v and chest pain, transferred to [facility] for LHC/PCI, who presented to CCU s/p [...] 0-400 mcg/hr, Last Rate: 175 mcg/hr (06/15/22 0400) heparin, 0-33 Units/kg/hr, Last Rate: 7.5 Units/kg/hr (06/15/22399) midazolam, 0-12 mg/hr, Last Rate: Stopped (06/13/22 1327) norepinephrine, 0-2 mcg/kg/min (Dosing Weight), Last Rate: Stopped (06/11/22399) NxStage 3-potassium/3-calcium, 1,400 mL/hr, Last Rate: 1,400 mL/hr (06/14/22 2133) NxStage 3-potassium/3-calcium, 1,400 mL/hr, Last Rate: 1,400 mL/hr (06/15/22 0344) propofol, 0-50 mcg/kg/min, Last Rate: 40 mcg/kg/min (06/15/22399) sodium chloride 0.9%, 10 mL/hr, Last Rate: 10 mL/hr (06/12/22 0834) sodium chloride 0.9%, 1,000 mL sodium chloride 0.9%, 3-12 mL/hr sodium chloride 0.9%, 3-12 mL/hr, Last Rate: 3 mL/hr (06/15/22 010) PRN Meds:. acetaminophen albuterol HFA bisacodyL bisacodyl [...] ramelteon sodium chloride 0.9% OBJECTIVE Vitals: Vitals: 06/15/22399 BP: Pulse: 94 Resp: 18 Temp: 37.7 ??C (99.9 ??F) SpO2: 91% Input and Output: Intake/Output Summary (Last 24 hours) at 06/15/2022522 Last data filed at 06/15/2022 040 Gross per 24 hour Intake 1849.71 ml [...] displayed. LFTs Recent Labs Lab Units 06/14/22 194 ALK PHOS Units/L 264* BILIRUBIN TOTAL mg/dL [...] in anterior wall and anterior septem sugegsting CAD/MS in the LAD territory. 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 Hgb [...] to make comment on patient risk/complexity. Tyra Yennam, MD Resident Physician, Internal Medicine Cosigned by [...] plan with the ICU team and other medical/apprenticeship consultant staff. * Lavern Morrison MD - 06/14/2022 4:39 PM CDT CCU DAILY PROGRESS Patient: Adelia Garvin Jr. Room: [id number] Date: 06/14/2022 Summary Statement: Adelia Garvin Jr. is a 51 y.o. male with a history of CHF (EF 50% 2016), Afib (not on AC), HTN, CAD s/p stent 04/06 and 3 stent 12/07, T1DM (insulin pump at home), ESRD on PD, HLD, GERD, hyperparathyroidism, DDD, OA, gout, BEN on CPAP initially presented to OSH for n/v and chest pain, transferred to [facility] for LHC/PCI, who presented to CCU s/p [...] in anterior wall and anterior septem sugegsting CAD/MS in the LAD territory. LVEF is in [...] (EF 50% 2017), Afib (not on AC), HTN,CAD s/p stent 04/06 and 3 stent 12/07, T1DM (insulin pump at home), ESRD on PD, HLD, GERD, hyperparathyroidism, DDD, OA, gout, BEN on CPAP initially presented to [facility] for n/v and chest pain, transferred to [facility] for LHC/PCI, who presented to the CCU s/p complex PCI complicated by hypoxemicrespiratory failure requiring intubation, impella support, veletri gtt. 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 Hgb [...] plan with the ICU team and other medical/apprenticeship consultant staff. * Payam Johnson, BARREL PAINTER - 06/14/2022 11:56 AM CDT 06/14/22 1135 [...] DAILY PROGRESS Patient: Adelia Garvin Jr. Room: [id number] Date: 06/13/2022 Summary Statement: Adelia Garvin Jr. is a 51 y.o. male with a history of CHF (EF 50% 2016), Afib (not on AC), HTN, CAD s/p stent 04/06 and 3 stent 12/07, T1DM (insulin pump at home), ESRD on PD, HLD, GERD, hyperparathyroidism, DDD, OA, gout, BEN on CPAP initially presented to OSH for n/v and chest pain, transferred to [facility] for LHC/PCI, who presented to CCU s/p complex PCI with impella and intubated. SUBJECTIVE Interval: -CXR with ETT 5.5 cm above the boni -Hyperkalemia to 5.6 this AM -Patient weaned to FiO2 40 overnight. ABG this AM: 7.40 / 40 / 66 / -Patient remains off pressors -Triglycerides improved from [...] 0-400 mcg/hr, Last Rate: 125 mcg/hr (06/13/22 1700) heparin, 0-2,000 Units/hr, Last Rate: 1,100 Units/hr (06/13/22 0700) heparin, 0-33 Units/kg/hr, Last Rate: 7.5 Units/kg/hr (06/13/22 1700) midazolam, 0-12 mg/hr, Last Rate: Stopped (06/13/22 [...] 0.9%, 3-12 mL/hr, Last Rate: 3 mL/hr (06/13/221699) PRN Meds:. acetaminophen albuterol HFA bisacodyL bisacodyl [...] in anterior wall and anterior septem sugegsting CAD/MS in the LAD territory. 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 Hgb [...] plan with the ICU team and other medical/apprenticeship consultant staff. * Olga Bernstein, PT - 06/13/2022 9:14 AM CDT Physical Therapy 06/13/22 0913 General PT Missed Visit Reason Bedrest;Sedated (impella, CVVHD) Recommendation/Plan PT Frequency Monitor status PT - Next Appointment 06/15/22 * Jeffrey Green MD - 06/12/2022 4:58 AM CDT CCU DAILY PROGRESS Patient: Adelia Garvin Jr. Room: [place] [address] Date: 06/12/2022 Summary Statement: Adelia Garvin Jr. is a 51 y.o. male with a history of CHF (EF 50% 2016), Afib (not on AC), HTN, CAD s/p stent 04/06 and 3 stent 12/07, T1DM (insulin pump at home), ESRD on PD, HLD, GERD, hyperparathyroidism, DDD, OA, gout, BEN on CPAP initially presented to OSH for n/v and chest pain, transferred to [facility] for LHC/PCI, who presented to CCU s/p complex PCI with impella and intubated. SUBJECTIVE Interval: -Went for CT-CAP (non-con), no e/o bleeding cholecystitis. Possible VAP vs aspiration/atelectasis. -Dialysis circuit has had issues clotting off several times, a couple times unable to return blood,--> Hgb drop 1.5 points. Ran UF at 150 to avoid clotting issues -1999 ABG 7.38/39/111/23, weaned fio2 to 50% -Weaned vaso to [...] 0-400 mcg/hr, Last Rate: 200 mcg/hr (06/12/22 0400) heparin, 0-2,000 Units/hr, Last Rate: 1,100 Units/hr (06/12/22 0400) midazolam, 0-12 mg/hr, Last Rate: 2.5 mg/hr (06/12/22 040) nitroglycerin, 0-400 mcg/min, Last Rate: Stopped (06/05/22 2100) norepinephrine, 0-2 mcg/kg/min (Dosing Weight), Last Rate: Stopped (06/11/22 040) NxStage 4-potassium/2.5-calcium, 1,400 mL/hr, Last Rate: 1,400 mL/hr (06/12/22 0254) NxStage 4-potassium/2.5-calcium, 1,400 mL/hr, Last Rate: 1,400 mL/hr (06/11/22 1626) propofol, 0-50 mcg/kg/min, Last Rate: 25 mcg/kg/min (06/12/22 040) sodium chloride 0.9%, 10 mL/hr, Last Rate: [...] 0-0.06 Units/min, Last Rate: 0.02 Units/min (06/12/22 0440) PRN Meds:. acetaminophen albuterol HFA bisacodyL bisacodyl [...] in anterior wall and anterior septem sugegsting CAD/MS in the LAD territory. 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 Hgb [...] plan with the ICU team and other medical/apprenticeship consultant staff. * Jeffrey Green MD - 06/11/2022 2:46 AM CDT CCU DAILY PROGRESS Patient: Adelia Garvin Jr. Room: [id number] Date: 06/11/2022 Summary Statement: Adelia Garvin Jr. is a 51 y.o. male with a history of CHF (EF 50% 2016), Afib (not on AC), HTN, CAD s/p stent 04/06 and 3 stent 12/07, T1DM (insulin pump at home), ESRD on PD, HLD, GERD, hyperparathyroidism, DDD, OA, gout, BEN on CPAP initially presented to OSH for n/v and chest pain, transferred to [facility] for LHC/PCI, who presented to CCU s/p complex PCI with impella and intubated. SUBJECTIVE Overnight: - Impella removed -[place] removed -Veletri weaned off -Tube feeds started [...] (06/11/22199) nitroglycerin, 0-400 mcg/min, Last Rate: Stopped (06/05/22 2100) norepinephrine, 0-2 mcg/kg/min (Dosing Weight), Last Rate: 0.03 mcg/kg/min (06/11/22 020) NxStage 4-potassium/2.5-calcium, 1,400 mL/hr, Last Rate: 1,400 mL/hr (06/10/22 172) NxStage 4-potassium/2.5-calcium, 1,400 mL/hr, Last Rate: 1,400 mL/hr (06/10/22 172) propofol, 0-50 mcg/kg/min, Last Rate: 30 mcg/kg/min [...] ramelteon sodium chloride 0.9% OBJECTIVE Vitals: Vitals: 06/11/22199 BP: Pulse: 65 Resp: 20 Temp: (!) [...] Chem Recent Labs Lab Units 06/11/22 0049 06/10/22222706/10/22 222 SODIUM mmol/L -- -- 136 POTASSIUM PLASMA [...] not displayed. LFTs Recent Labs Lab Units 06/10/222226 ALK PHOS Units/L 216* BILIRUBIN TOTAL mg/dL [...] 2,062* Cholesterol Recent Labs Lab Units 06/04/22 225 CHOLESTEROL mg/dL 149 Hgb A1C Recent Labs [...] in anterior wall and anterior septem sugegsting CAD/MS in the LAD territory. LVEF is in normal range 56%. Impaired LV relaxation. LA is mildly dilated. Mildly dilated RV cavity size with normal RV systolic function. Mildly dilated RA size. Normal Inferior vena cava. Normal aortic root. Mils to mod AR. Trace TR. PASP= 23 mm Hg +RAP. ASSESSMENT and PLAN Adelia C Newcombe Jr. is a 51 y.o. 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 Hgb [...] plan with the ICU team and other medical/apprenticeship consultant staff. * Tyra De La Torre MD - 06/10/2022 12:46 PM CDT CCU DAILY PROGRESS Patient: Adelia Garvin Jr. Room: [facility] CARDIAC CATH ROOM/NO* Date: 06/10/2022 Summary Statement: [...] for n/v and chest pain, transferred to [facility] for LHC/PCI, who presented to CCU s/p [...] Hold] aspirin, 81 mg, feeding tube, Daily [MAR Hold] atorvastatin, 80 mg, feeding tube, Daily [MAR Hold] calcitRIOL, 0.25 mcg, feeding tube, Daily [Held by Provider] calcium acetate(phosphat bind), 667 mg, oral, QID [MAR Hold] chlorhexidine, 15 mL, mouth/throat, BID [Held by Provider] cloNIDine, 0.1 mg, oral, BID [MAR Hold] clopidogreL, 75 mg, feeding tube, Daily [MAR Hold] docusate, 100 mg, feeding tube, Daily [...] [OCT Hold] pantoprazole, 40 mg, intravenous, BID [MAR [...] 1,400 mL/hr, Last Rate: 1,400 mL/hr (06/10/22 09) propofol, 0-50 mcg/kg/min, Last Rate: 50 mcg/kg/min [...] Rate: 3 mL/hr (06/10/22 1000) PRN Meds:. [OCT Hold] acetaminophen [Oct] albuterol HFA [Oct] bisacodyL [Oct] bisacodyl EC [Oct] dextrose OR [Oct] dextrose [Oct] dextrose 5% water [Oct] dextrose 5% water [Oct] fentaNYL [Oct] fentaNYL [Oct] fluticasone propionate [Oct] glucagon Dialysis [facility] AND [Oct] heparin [Oct] heparin OR [Oct] heparin [Oct] lidocaine [Oct] ondansetron ODT OR [Oct] ondansetron [Oct] phenoL [Oct] polyethylene glycol [Oct] ramelteon [Oct] sodium chloride 0.9% PRN Meds: [OCT Hold] acetaminophen [Oct] albuterol HFA [Oct] bisacodyL [Oct] bisacodyl EC [Oct] dextrose OR [Oct] dextrose [Oct] dextrose 5% water [Oct] dextrose 5% water [Oct] fentaNYL [Oct] fentaNYL [Oct] fluticasone propionate [Oct] glucagon Dialysis [facility] AND [Oct] heparin [Oct] heparin OR [OCT Hold] heparin [MAR Hold] lidocaine [OCT Hold] ondansetron ODT OR [OCT Hold] ondansetron [OCT Hold] phenoL [OCT Hold] polyethylene glycol [OCT Hold] ramelteon [Oct] sodium chloride 0.9% OBJECTIVE Vitals: [...] LABORATORY DATA CBC Recent Labs Lab Units 06/10/22 0752 WBC K/cumm 10.2* HEMOGLOBIN g/dL 8.3* [...] Units/L 117* Coags Recent Labs Lab Units 06/09/223 06/05/22 1834 06/05/22 1554 APTT sec 92* [...] in anterior wall and anterior septem sugegsting CAD/MS in the LAD territory. 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 Hgb [...] plan with the ICU team and other medical/apprenticeship consultant staff. * Lavern Morrison MD - 06/09/2022 6:31 AM CDT CCU DAILY PROGRESS Patient: Adelai Garvin Jr. Room: [id number] Date: 06/09/2022 Summary Statement: Adelia Garvin Jr. is a 51 y.o. male with a history of CHF (EF 50% 2017), Afib (not on AC), HTN, CAD s/p stent 8/17 and 3 stent 12/07, T1DM (insulin pump at home), ESRD on PD, HLD, GERD, hyperparathyroidism, DDD, OA, gout, BEN on CPAP initially presented to OSH for n/v and chest pain, transferred to [facility] for LHC/PCI, who presented to CCU s/p [...] 10 mL/hr, Last Rate: 10 mL/hr (06/09/22 0600) sodium chloride 0.9%, 6 mL/hr, Last Rate: 6 mL/hr (06/09/22 0600) sodium chloride 0.9%, 1,000 mL sodium chloride [...] in anterior wall and anterior septem sugegsting CAD/MS in the LAD territory. 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 Hgb [...] plan with the ICU team and other medical/apprenticeship consultant staff. * Roberto Carlos Newberry PT - 06/08/2022 3:00 PM CDT Physical Therapy 06/08/22 1500 General PT Missed Visit Reason Sedated;Other (comment) (pt intubated, sedated, primaflex CVVHD.) * Marcelina Pickard NP - 06/08/2022 7:58 AM CDT PROCEDURE: [facility] w/ complex PCI and Impella CP placement [...] statin therapy. Follow up appt with primary proof carrier, Dr Petit in 2-4 weeks post discharge. LOIDA Dos Santos Interventional Cardiology Nurse Practitioner [phone] Please refer to [facility] Blood [...] DAILY PROGRESS Patient: Adelia Garvin Jr. Room: [id number] Date: 06/08/2022 Summary Statement: Adelia Garvin Jr. is a 51 y.o. male with a history of CHF (EF 50% 2016), Afib (not on AC), HTN, CAD s/p stent 04/06 and 3 stent 12/07, T1DM (insulin pump at home), ESRD on PD, HLD, GERD, hyperparathyroidism, DDD, OA, gout, BEN on CPAP initially presented to OSH for n/v and chest pain, transferred to [facility] for LHC/PCI, who presented to CCU s/p [...] 50 mL/hr, Last Rate: 50 mL/hr (06/08/22 050) epoprostenol, 160 mcg/hr, Last Rate: 160 mcg/hr (06/08/22 0330) fentaNYL, 0-400 mcg/hr, Last Rate: 75 mcg/hr (06/08/22499) impella purge solution infusion, 0-30 mL/hr, Last Rate: 16.6 mL/hr (06/08/22499) heparin, 0-33 Units/kg/hr, Last Rate: Stopped (06/07/22 1105) nitroglycerin, 0-400 mcg/min, Last Rate: Stopped (06/05/22 2100) norepinephrine, 0-2 mcg/kg/min (Dosing Weight), Last Rate: 0.01 mcg/kg/min (06/08/22499) NxStage 4-potassium/2.5-calcium, 1,000 mL/hr, Last Rate: 1,000 mL/hr (06/08/22 0523) NxStage 4-potassium/2.5-calcium, 1,000 mL/hr, Last Rate: 1,000 mL/hr (06/08/22 0521) propofol, 0-50 mcg/kg/min, Last Rate: 20 mcg/kg/min (06/08/22499) sodium chloride 0.9%, 10 mL/hr, Last Rate: 10 mL/hr (06/08/22499) sodium chloride 0.9%, 10 mL/hr, Last Rate: 10 mL/hr (06/08/22499) sodium chloride 0.9%, 10 mL/hr sodium chloride 0.9%, 10 mL/hr, Last Rate: 10 mL/hr (06/08/22499) sodium chloride 0.9%, 6 mL/hr, Last Rate: 6 mL/hr (06/08/22 050) sodium chloride 0.9%, 1,000 mL sodium chloride [...] 06/08/2022 0500 Gross per 24 hour Intake 57511.23 ml Output 73193 ml Net -328.77 ml Ventilator Settings: 20/500/80/12 [...] 0937 Urine Analysis Recent Labs Lab Units 06/05/227 COLOR U Yellow CLARITY U Cloudy* SPEC [...] gout, BEN on CPAP initially presented to [facility] for n/v and chest pain, transferred to [facility] for LHC/PCI, who presented to the CCU [...] 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 Hgb [...] plan with the ICU team and other medical/apprenticeship consultant staff. 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 Bed: [id number] : 1970 Age: 51 y.o. male Admit: [...] pre-medications for contrast allergy in anticipation of [facility] today. Scheduled Meds:amLODIPine, 10 mg, oral, Daily [...] ramelteon Intake/Output Summary (Last 24 hours) at 06/07/2022 0933 Last data filed at 06/07/2022 0800 Gross per 24 hour Intake 81663.7 ml Output 28713 ml Net -1579.3 ml 24hr Min/Max: Temp [...] this morning, Mr. Garvin was taken for LHC but developed profound hypoxemia requiring intubation. Per discussion with Cardiology, he will be undergoing Impella placement and will be transferred to the CCU. This was discussed directly with the CCU attending as well. The plan below was formulated prior to these events. NSTEMI In the setting of known coronary disease, cholecystitis, ESRD with poor clearance LHC today, has received contrast allergy pre-medication Plavix [...] performed whenever feasible but would not delay [facility] For this Continue meropenem for gram negative [...] plan with the ICU team and other medical/apprenticeship consultant staff. Conrad Akers MD Pulmonary/Critical Care * Girish Kirk MD - 06/07/2022 7:56 AM CDT [facility] Acute and Critical Care Surgery (ACCS) Consult [...] Parra MD, 10 mg at 06/06/22 0820 aspirin enteric coated tablet 81 mg, 81 mg, oral, Daily, Dewey Parra MD, 81 mg at 06/06/22 0820 atorvastatin (LIPITOR) tablet 80 mg, 80 mg, oral, Daily, Dewey Parra MD, 80 mg at 06/06/22819 calcitRIOL (ROCALTROL) capsule 0.25 mcg, 0.25 mcg, oral, Daily, Dewey Parra MD, 0.25 mcg at 06/06/22819 calcium acetate(phosphat bind) (PHOSLO) capsule 667 mg, 667 mg, oral, QID, Dewey Parra MD, 667 mgat 10/17/22 2019 cloNIDine (CATAPRES) tablet 0.1 mg, 0.1 mg, [...] Dewey Parra MD, 10 mg at 06/06/22819 fluticasone propionate (FLONASE) 50 mcg/actuation nasal spray [...] injection 6 Units, 0.04 Units/kg, subcutaneous, TID, Dewey Parra MD, 6 Units at 06/07/22 0417 insulin lispro (HumaLOG, ADMELOG) 100 unit/mL injection 9 Units, 9 Units, subcutaneous, TID with meals, VickVeronica MD, 9 Units at 06/06/22 1805 isosorbide [...] Dewey Parra MD, Stopped at 06/05/22 2100 nystatin 100,000 unit/mL oral suspension 500,000 Units, 500,000 Units, swish & spit, QID, Low Cardoso MD, 500,000 Units at 06/06/222018 ondansetron ODT (ZOFRAN-ODT) disintegrating tablet 4 mg, 4 mg, oral, Q6H PRN OR ondansetron (ZOFRAN) injection 4 mg, 4 mg, intravenous, Q6H PRN, Dweey Parra MD pantoprazole DR (PROTONIX) extended release [...] tablet 50 mg, 50 mg, oral, Q6H, Dbouk, Veronica Gee MD, 50 mg at ramelteon (ROZEREM) tablet 8 mg, 8 mg, [...] Is&Os: I/O last 2 completed shifts: In: 88083.3 [P.O.:780; I.V.:444.3; Other:15596; IV Piggyback:100] Out: 05936 [Other:08124] No intake/output data recorded. Physical Exam: BP [...] of motion Labs/Imaging: Recent Labs Lab Units 06/06/22201506/05/22204606/05/22 1554 WBC K/cumm 11.6* 9.1 10.7* HEMOGLOBIN g/dL 9.3* 9.3* 10.3* HEMATOCRIT % 26.4* 26.0* 29.1* PLATELETS K/cumm 207 201 238 Recent Labs Lab Units 06/07/22 0417 06/06/22 2351 06/06/22201706/06/22201506/05/22 2113 06/05/22204606/05/22 1707 06/05/22 1554 SODIUM mmol/L -- -- [...] evaluation. The pelvis is excluded from the [id number] and unavailable for interpretation. A rounded density [...] (HCC) Chronic kidney disease, stage III (moderate) (HCC) Benign essential hypertension Hyperlipidemia 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[place] artery of [place] heart with stable angina pectoris (CMS/HCC) (HCC) History of coronary artery stent placement Hypertension Diabetes mellitus (HCC) Snoring Hypersomnia Chronic kidney disease Pain of finger Macular ischemia Combined forms of age-related cataract Proliferative diabetic retinopathy associated with type 2 diabetes mellitus (CMS/HCC) (HCC) Abnormal cardiovascular stress test Angina pectoris (HCC) Adelia Garvin Jr. is a C/F CHOLECYSTITIS 51M w/PMHB CHF (EF 50% 2016), Afib (not on AC), HTN, CAD s/p stent 04/06 and 3 stent 12/07, T1DM (insulin pump at home), ESRD on PD, HLD, GERD, hyperparathyroidism, DDD, OA, gout, BEN on CPAP initially[facility] for generalized weakness, n/v, diarrhea, and chest pain, transferredto [facility] on 06/05 for LHC/PCI scheduled for 06/06. Pt was found to have an NSTEMI at OSH and was continued on hep gtt, asa81, plavix at [facility]. He was transferred to MICU after he [...] GB pathology - Serial abdominal exams - [facility] will continue to follow The care plan above has been or will be discussed with attending physician. Any changes will be communicated to the primary team. Please contact the [facility] Inpatient Consult Service at the number listed [...] patient today, as he was in the labor relations director upon my arrival. Later chart reviewrevealed a [...] MD Instructor, Acute and Critical Care Surgery [facility] [employer] * Amira Davenport RN - 06/06/2022 12:04 PM CDT CM Initial Assessment Interview Note Information Obtained From: Patient (06/06/22 1156) Admission Source: from [facility] Impression: Hx - CHF, Afib, HTN, CAD [...] [place] Medicaid Prescription Coverage: yes Pharmacy: [facility] Primary Care Provider: Aditya Castro MD - verified Prior to Admission: Primary Caregiver: Self Who does the patient or legal guardian want to receive education instruction and discharge plans for after care assistance?: No Caregiver Available Support System: Children, Family members Support system contact info (name, phone, availablity): Brother Jude Gallardo - [phone] Home Care Services: No Durable Medical Equipment: Walker (wheeled) Living Arrangements: Children Type of Residence: Private residence (06/05/22 0000) SDOH: Transportation: Financial Resource: Housing: Social Connections: Food Insecurity: Alcohol Use: PHQ Screening Potential discharge needs include: Dialysis: Behavioral Health Services: Behavioral Health Services: No (06/06/22 1156) Patient expects to be Discharged to: Private residence, (06/06/22 1156) Additional Information: Patient has applied for Choreworker [...] Collaboration with patient, MD, direct care nurse, Advertising Inserter, and other members of the health care team to assure needed interventions completed. 2. Return patient to optimal level of self-care post discharge. 3. [facility] will follow for Discharge Planning - interventions [...] Daily Note Name: Adelia Garvin Jr. Bed: [id number] : 1970 Age: 51 y.o. male Admit: [...] 06/06/2022 0900 Gross per 24 hour Intake 07460.47 ml Output 26356 ml Net -2112.53 ml 24hr Min/Max: Temp [...] EKG/Min 73 BPM Atrial Rate 73 BPM AR-Interval (MSEC) 184 ms QRS-Interval (MSEC) 106 ms QT-Interval (MSEC) 442 ms QTc 486 ms P [place] 49 degrees R [place] -33 degrees T [place] 87 degrees Diagnosis Normal sinus rhythm Possible [...] Magnesium 2.1 1.4 - 2.5 mg/dL POCT [id number], WB - ISTAT Collection Time: 06/05/22 3:22 [...] findings include: Troponin peak at 4800 NT-proBNP 23961 CXR with bilateral fluffy opacities RUQ US [...] HIDA scan when feasible, would not delay [facility] for this Continue meropenem for gram negative and anaerobic coverage Consult HPB pending [facility] plans Will almost certainly need to be [...] control Wean O2 as tolerated, currently on NE Hypertensive urgency/emergency With associated flash pulmonary edema [...] plan with the ICU team and other medical/apprenticeship consultant staff. Conrad Akers MD Pulmonary/Critical Care documented in this encounter H&P Notes * Marcelina Pickard, ROBERTO - 06/10/2022 10:33 AM CDT I have reviewed the H&P, examined the patient, and endorse the findings as written. Plan of Care : Based on the above findings, I consider Adelia Garvin Jr. to be an acceptable risk for : Procedure(s): REMOVE PERC ARTERIAL VAD (IMPELLA), DIFFERENT SESSION [id number] Cosigned by Champ Osborne MD PhD at 06/10/2022 10:55 AM CDT Source Note - Jeffrey Green MD - 06/07/2022 2:03 PM CDT . CCU ADMISSION HISTORY AND PHYSICAL Patient: Adelia Garvin Jr. Room: [facility] CARDIAC CATH ROOM/NO* Date: 06/07/2022 SUBJECTIVE CCU INDICATION: Cardiogenic shock HISTORY OF PRESENT ILLNESS Adelia Garvin Jr. is a 51 y.o. male with a history of CHF (EF 50% 2016), Afib (not on AC), HTN, CAD s/p stent 04/06 and 3 stent 12/07, T1DM (insulin pump at home), ESRD on PD, HLD, GERD, hyperparathyroidism, DDD, OA, gout, BEN on CPAP initially presented to [facility] for n/v and chest pain, transferred to [facility] for LHC/PCI, now presenting to CCU s/p complex PCI with impella and intubated. At the OSH he presented with 3d generalized weakness, chills, ROONEY, n/v, chest pain relieved by sublingual ntg. His labs were notable for trop 1.0-->1.09-->0.729, BNP 29870. He had a CT CAP showing cholelithiasis [...] circumflex as optimal treatment, prompting transfer to [place]. He arrived at [place] 06/05. EKG showed sinus bradycardia, 1st deg [...] Diabetes mellitus (HCC) Diabetes mellitus type I ([facility]) Dialysis patient ([facility]) (HCC) ESRD on dialysis ([facility]) ([facility]) GERD (gastroesophageal reflux disease) Hyperlipidemia Hypertension Sleep [...] calcium acetate(phosphat bind), 667 mg, oral, QID [Oct] cloNIDine, 0.1 mg, oral, BID [OCT Hold] clopidogreL, 75 mg, oral, Daily [OCT Hold] docusate sodium, 100 mg, oral, Daily [Oct] ergocalciferol, 50,000 Units, oral, Weekly [Oct] ezetimibe, 10 mg, oral, Daily [Oct] hydrALAZINE, 100 mg, oral, Q8H [Oct] insulin glargine, 33 Units, subcutaneous, QAM [Oct] insulin lispro, 0-10 Units, subcutaneous, TID with meals [OCT Hold] insulin lispro, 0.04 Units/kg, subcutaneous, TID [OCT Hold] insulin lispro, 9 Units, subcutaneous, TID with meals [Oct] isosorbide mononitrate ER, 30 mg, oral, Daily [Oct] meropenem, 500 mg, intravenous, Q24H [Oct] metoprolol tartrate, 12.5 mg, oral, Q6H [Oct] nystatin, 500,000 Units, swish & spit, QID [Oct] pantoprazole DR, 40 mg, oral, Daily [Oct] polyethylene glycol, 17 g, oral, Daily [Oct] ranolazine ER, 500 mg, oral, BID [Oct] [...] 06/07/2022 1100 Gross per 24 hour Intake 49788.04 ml Output 70308 ml Net -1701.96 ml REVIEW OF LABORATORY [...] gout, BEN on CPAP initially presented to [facility] for n/v and chest pain, transferred to [facility] for LHC/PCI, now presenting to CCU s/p [...] 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 Room: [facility] CARDIAC CATH ROOM/NO* Date: 06/07/2022 SUBJECTIVE CCU INDICATION: Cardiogenic shock HISTORY OF PRESENT ILLNESS Adelia Garvin Jr. is a 51 y.o. male with a history of CHF (EF 50% 2017), Afib (not on AC), HTN, CAD s/p stent 04/06 and 3 stent 12/07, T1DM (insulin pump at home), ESRD on PD, HLD, GERD, hyperparathyroidism, DDD, OA, gout, BEN on CPAP initially presented to [facility] for n/v and chest pain, transferred to [facility] for LHC/PCI, now presenting to CCU s/p complex PCI with impella and intubated. At the OSH he presented with 3d generalized weakness, chills, ROONEY, n/v, chest pain relieved by sublingual ntg. His labs were notable for trop 1.0-->1.09-->0.729, BNP 60552. He had a CT CAP showing cholelithiasis [...] circumflex as optimal treatment, prompting transfer to [place]. He arrived at [place] 06/05. EKG showed sinus bradycardia, 1st deg [...] Diabetes mellitus type I (HCC) Dialysis patient ([facility]) (HCC) ESRD on dialysis ([facility]) ([facility]) GERD (gastroesophageal reflux disease) Hyperlipidemia Hypertension Sleep [...] Once [Oct] aspirin, 81 mg, oral, Daily [Oct] atorvastatin, 80 mg, oral, Daily [Oct] calcitRIOL, 0.25 mcg, oral, Daily [Oct] calcium acetate(phosphat bind), 667 mg, oral, QID [Oct] cloNIDine, 0.1 mg, oral, BID [OCT Hold] clopidogreL, 75 mg, oral, Daily [Oct] docusate sodium, 100 mg, oral, Daily [Oct] [...] Hold] pantoprazole DR, 40 mg, oral, Daily [OCT Hold] polyethylene glycol, 17 g, oral, Daily [OCT Hold] ranolazine ER, 500 mg, oral, BID [Oct] terazosin, 2 mg, oral, Nightly PRN Medications Medication Dose Route Frequency Last Admin [OCT Hold] acetaminophen (TYLENOL) tablet 325 mg 325 mg [...] 06/07/2022 1100 Gross per 24 hour Intake 54298.04 ml Output 48507 ml Net -1701.96 ml REVIEW OF LABORATORY [...] gout, BEN on CPAP initially presented to [facility] for n/v and chest pain, transferred to [facility] for LHC/PCI, now presenting to CCU s/p [...] 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 [place] catheter reviewed that shows adequate cardiac output [...] plan with the ICU team and other medical/apprenticeship consultant staff. * Marcelina Pickard NP - 06/07/2022 10:26 AM CDT I have reviewed the H&P, examined the patient, and endorse the findings as written. Plan of Care : Based on the above findings, I consider Adelia Garvin Jr. to be an acceptable risk for : Procedure(s): PCI MARIELLA MAJOR CORONARY [id number] - [id number] Cosigned by Champ Osborne MD PhD at [...] gout, BEN on CPAP initially presented to [facility] for generalized weakness, n/v, diarrhea, and chest pain, transferred to [facility] for LHC/PCI scheduled for 06/06, and presenting to the MICU after he was placed on NIPPV during an ACT for hypoxic respiratory failure. At OSH, pt presented w 3d of generalized weakness, loss of appetite, chills, ROONEY, n/v/d, and intermittent chest pain relieved by sublingual ntg. Labs at OSH notable for WBC 6.1, hgb 10.2, plt 206, trop I 1.0->1.09->0.729, BNP 71854. CTAP cholelithiasis w mild gallbladder distension, airspace [...] doneat tertiary center. Pt was transferred to [facility] floor overnight. Labs notable for Na 129, [...] (coronary artery disease) Chest pain Diabetes mellitus ([facility]) Diabetes mellitus type I ([facility]) Dialysis patient ([facility]) ESRD on dialysis ([facility]) GERD (gastroesophageal reflux disease) Hyperlipidemia Hypertension Sleep [...] 0659 06/05/22 0700 - 06/06/22 0659 Shift 7263-9300 4994-7258 24 Hour Total 0518-3893 0493-4884 24 Hour Total INTAKE P.O. 60 60 Other 45933 64551 Shift Total(mL/kg) 94211(83.5) 50060(83.5) OUTPUT Urine 0 0 Other 73013 21888 Stool 0 0 Shift Total(mL/kg) 62260(87.7) 05579(87.7) NET -603 -603 Weight (kg) 142 142 [...] Magnesium 2.1 1.4 - 2.5 mg/dL POCT [id number]-[id number]-HCT, WB - ISTAT Collection Time: 06/05/22 3:22 [...] to OSH with NSTEMI, CAP, transferred to [facility] for LHC/PCI scheduled for 06/06, andpresenting to [...] Trop downtrending since admission. EKG unchanged. - [facility] 06/06 at 10:30am (NPO [place]) - hep [...] gout, BEN on CPAP initially presented to [facility] for generalized weakness, n/v, diarrhea, and chest pain, transferred to [facility] for LHC/PCI scheduled for 06/06, and presenting to the MICU after he was placed on NIPPV during an ACT for hypoxic respiratory failure. At OSH, pt presented w 3d of generalized weakness, loss of appetite, chills, ROONEY, n/v/d, and intermittent chest pain relieved by sublingual ntg. Labs at OSH notable for WBC 6.1, hgb 10.2, plt 206, trop I 1.0->1.09->0.729, BNP 72521. CTAP cholelithiasis w mild gallbladder distension, airspace [...] doneat tertiary center. Pt was transferred to [facility] floor overnight. Labs notable for Na 129, [...] (coronary artery disease) Chest pain Diabetes mellitus ([facility]) Diabetes mellitus type I ([facility]) Dialysis patient ([facility]) ESRD on dialysis ([facility]) GERD (gastroesophageal reflux disease) Hyperlipidemia Hypertension Sleep [...] 0659 06/05/22 0700 - 06/06/22 0659 Shift 3013-9241 7039-9101 24 Hour Total 2128-5852 5781-4763 24 Hour Total INTAKE P.O. 60 60 Other 77010 30548 Shift Total(mL/kg) 80938(83.5) 41526(83.5) OUTPUT Urine 0 0 Other 42110 21067 Stool 0 0 Shift Total(mL/kg) 70986(87.7) 57843(87.7) NET -603 -603 Weight (kg) 142 142 [...] Magnesium 2.1 1.4 - 2.5 mg/dL POCT [id number]-GLU-HCT, WB - ISTAT Collection Time: 06/05/22 3:22 [...] to OSH with NSTEMI, CAP, transferred to [facility] for LHC/PCI scheduled for 06/06, andpresenting to [...] plan with the ICU team and other medical/apprenticeship consultant staff. * Russ Milner MD - 06/05/2022 12:51 AM CDT Cardiology History and Physical - General Cardiology Patient Name: Adeliafabi Gravin Jr. : 1970 Date of Service: 06/05/22 [...] gout, BEN on CPAP initially presented to [facility] for generalized weakness, n/v, diarrhea, and chest pain now being transferred for LHC/PCI 06/06. Patient initially presented with generalized weakness for the last 3 days. He then began to endorsen/v and diarrhea as well as chest pain which waxes and wanes and improves with sublingual ntg. He also reported decreased appetite, chills, dyspnea with exertion, and nonproductive cough. Patient follows with [facility] for cardiology. He [...] 105, Lipase 65, troponin I 1.0->1.09->0.729, BNP 95170. Covid, influenza negative. CXR showed left basilar [...] (coronary artery disease), Chest pain, Diabetes mellitus ([facility]), Diabetes mellitus type I ([facility] Dialysis patient ([facility]), ESRD on dialysis ([facility]),GERD (gastroesophageal reflux disease), Hyperlipidemia, Hypertension, Sleep apnea, [...] data in the 24 hours ending 06/05/22 0051 Physical Exam: General appearance: no acute distress [...] gout, BEN on CPAP initially presented to [facility] for generalized weakness, n/v, diarrhea, andchest pain now being transferred for LHC/PCI 06/06. #CHF #CAD s/p PCI 03/2017 (RCA) and 3 stent 12/07 (prox, mid, and distal RCA) OSH txf for LHC/PCI w Dr. Osborne 06/06 at 10:30am. [facility] cardiology. He did have angiogram in 2020 which showed patent stents in RCA and PDA, previouslyjailed posterolateral occluded and 50% stenosis in branch of OM1. Endorsing chest pain iso n/v/diarrhea/ROONEY. Elevated troponin I 1.0->1.09->0.729, BNP 09421. EKG with sinus rhythm with left anterior [...] pain, no changes in EKG->restarted heparin gtt -[facility] 06/06 at 10:30am (NPO [place]) -heparin gtt [...] white count, elevated troponin I 1.0->1.09->0.729, BNP 57077, lipase 65. Covid, influenza negative. CXR showed [...] ceftriaxone, azithromycin. Now on RA. CXR on myreview with LLL opacity and pulmonary edema. Continue [...] -endocrine c/s #ESRD on PD // #Hyperparathyroidism /2 T1DM. Started PD 10/2019. Makes 1L urine/day. [...] 24h UF 1074 ml Won Navarro MD car sales associate Division of Nephrology NEPHROLOGY PROCEDURE NOTE Date [...] 116.1 kg (255 lb 15.3 oz) Height: BARREL PAINTER vascular access: PD catheter Other findings: Date 06/25/22699 - 06/26/22 0659 06/26/22699 - 06/27/22 0659 Shift 8531-9339 2154-1003 24 Hour Total 5173-0471 3860-5447 24 Hour Total INTAKE P.O. 360 360 Other 72927 10116 Shift Total(mL/kg) 360(3) 39842(105.7) 40227(108.8) OUTPUT Urine(mL/kg/hr) 100(0.1) 100(0) 300 300 Other 14783 31229 Shift Total(mL/kg) 100(0.8) 32420(119) 31771(119.9) 300(2.6) 300(2.6) NET 260 -1547 -1287 -300 [...] 5,000 Units, subcutaneous, Q8H ASHLEY [START ON 06/27/2022] insulin glargine, 35 Units, [...] FERRITIN 2,062 (H) 06/07/2022 Won Navarro MD car sales associate Nephrology Division ONAL SECRETARY * Aleida Lambert, OFFICE CLERK ROUTINE - 06/21/2022 2:02 PM CDTAssociated Order(s): OFFICE CLERK ROUTINE EVALUATE AND TREAT VIDEOFLUOROSCOPIC SWALLOW STUDY Speech-Language [...] reported General Information Adelia Garvin Jr. 06/21/22 OFFICE CLERK ROUTINE Received On: 06/21/22 General Observations: presents alert, [...] Administered: Thin liquids (via spoon & straw), Post thickened liquids (via spoon & straw), Purees, Honey thickened liquids via spoon, Solids. Patient took large sips requiring more than 1 swallow even when cued for small sip. Administered consistencies contain barium product. Thin Liquids: Laryngeal Penetration: Present Aspiration Present: No Penetration Aspiration Scale-Thin: 4-Material enters the airway, contacts the vocal folds and is ejected from the airway Post Thickened Liquids: Laryngeal Penetration: Present Aspiration Present: No Penetration Aspiration Scale-Post: 2-Material enters the airway, remains above the [...] treatment goals and details, if indicated. Plan OFFICE CLERK ROUTINE Frequency of Services: 2-3x/wk OFFICE CLERK ROUTINE Recommendation (Add'l Services): Inpatient Rehab Facility Next Visit Plan: treatment/therapy Additional Referrals: none at this time Discharge Summary Statement If this is the last swallow therapy visit, this serves as the discharge summary. 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 Aj Poe MD Machine Package Sealer, PGY-5 Cosigned by Rufino Flores MD at 06/20/2022 9:33 AM CDT * Lavern Morrison MD - 06/07/2022 10:17 PM CDTAssociated Order(s): Arterial Line Insertion Post-Procedure Diagnose(s): Hypotension, unspecified hypotension type Arterial Line Insertion Date/Time: 06/07/2022 10:17 PM Performed by: Lavern Morrison MD Authorized by: Lavern Morrison MD [place] Protocol: RN Notified of Procedure: yes Informed [...] and matched to patient identification: n/a Responsible democrat for transporting specimen(s) to lab determined: n/a [...] for n/v and chest pain, transferred to [facility] for LHC/PCI, who presented to CCU s/p complex PCI with impella and intubated. Now extubated, tolerating PO intake, on home PD. Arrived at [place] from OSH on 06/05. EKG showed sinus [...] Diabetes mellitus type I (HCC), Dialysis patient ([facility]) (HCC), ESRD on dialysis ([facility]) (HCC), GERD (gastroesophageal reflux disease), Hyperlipidemia, Hypertension, [...] 06/23/2022 1747 Gross per 24 hour Intake 70791 ml Output 04493 ml Net -2325 ml Physical Exam: General: [...] ESRD on PD who was transferred to [facility] for an impella-supported complex PCI on 06/07/22 [...] 5PM or on weekends, please page the cardiology teacher power generation turbine room operator with any questions or concerns. Will Villavicencio MD Machine Package Sealer 5:59 PM 06/23/22 Cosigned by Musa Fernando MD at 06/23/2022 7:53 PM CDT Associated attestation - Musa Fernando MD - 06/23/2022 7:53 PM CDT 06/23/2022 I have personally seen and examined this pt with resident/Fellow/PRODUCT MANAGEMENT SPECIALIST . I have reviewed History/Physical exam and plan for management. I agree with it . Musa Fernando M.D., F.A.CSharathC. software development coordinator [facility] [employer] [facility]. [place] This note contains information and findings [...] about verbage above please contact me at [phone]. . * Mckenzie Phelan, RD - 06/15/2022 4:40 PM CDT Nutrition Assessment [...] gout, BEN on CPAP initially presented to [facility] for generalized weakness, n/v, diarrhea, and chest pain now being transferred for LHC/PCI 06/06. Objective Past Medical History: Diagnosis Date CAD (coronary artery disease) Chest pain Diabetes mellitus (HCC) Diabetes mellitus type I (HCC) Dialysis patient ([facility]) (HCC) ESRD on dialysis ([facility]) (HCC) GERD (gastroesophageal reflux disease) Hyperlipidemia Hypertension [...] of Weight Used for Estimated Protein : Enterprise Protein Needs Based on g/k.7 Total Protein [...] Tube Feeding With Tray Impact Peptide 1.5 Nikos; 30; 30; Water; Every 4 hours; Prosource [...] Evaluation: TF tolerance Mckenzie Phelan RDN LD [phone] * Sandrine Myers MD - 06/15/2022 10:42 [...] mg/dL Glucose comment 1 Glu2: RN/MD Notified Blood gas, arterial Collection Time: 06/14/22 [...] Pulmonary will continue to follow. Please call power generation turbine room operator pulmonary consult fellow with additional questions or [...] resolved and hemodynamically stable. * Mckenzie Phelan, RD - 06/14/2022 2:36 PM CDT Nutrition Assessment [...] gout, BEN on CPAP initially presented to [facility] for generalized weakness, n/v, diarrhea, and chest pain now being transferred for LHC/PCI 06/06. Objective Past Medical History: Diagnosis Date CAD (coronary artery disease) Chest pain Diabetes mellitus (HCC) Diabetes mellitus type I (HCC) Dialysis patient (CMS/HCC) (HCC) ESRD on dialysis ([facility]) (HCC) GERD (gastroesophageal reflux disease) Hyperlipidemia Hypertension [...] of Weight Used for Estimated Protein : Enterprise Protein Needs Based on g/k.5 Total Protein [...] nutrition administration Monitoring and Evaluation: TF tolerance ADAMA Tejada Strap Stitcher RD number [phone] * Ronny Vasquez - 06/10/2022 2:21 PM [...] gout, BEN on CPAP initially presented to [facility] for generalized weakness, n/v, diarrhea, and chest pain now being transferred for LHC/PCI 06/06. Objective Past Medical History: Diagnosis Date CAD (coronary artery disease) Chest pain Diabetes mellitus (HCC) Diabetes mellitus type I (HCC) Dialysis patient ([facility]) (HCC) ESRD on dialysis ([facility]) ([facility]) GERD (gastroesophageal reflux disease) Hyperlipidemia Hypertension Sleep [...] TF tolerance Ronny Vasquez MS RDN LD Strap Stitcher RD number [phone] * Patricio Pearce MD - 06/09/2022 1:10 [...] failure. Briefly, the patient was transferred to [facility] for complex PCI for NSTEMI on 06/04. He was initially on the medicine floor then went into flash pulmonary edema in setting of hypertension and NSTEMI and was transferred to the MICU for NPPV. CXR showed significant pulmonary edema. Labs notable for BNP 32351, trops 4000. He was also found to [...] dilated RV with normal RV systolic function. [place] numbers from earlier today indicat PA 36/17, [...] Diabetes mellitus type I (HCC) Dialysis patient ([facility]) (HCC) ESRD on dialysis ([facility]) ([facility]) GERD (gastroesophageal reflux disease) Hyperlipidemia Hypertension Sleep [...] CDTAssociated Order(s): IP CONSULT TO GENERAL SURGERY [facility] Surgery Consult Note Requesting Consult: Conrad Akers MD Reason for Consult: cholecystitis Assessment: 51M w/PMHB CHF (EF 50% 2016), Afib (not on AC), HTN, CAD s/p stent 04/06 and 3 stent 12/07, T1DM (insulin pump at home), ESRD on PD, HLD, GERD, hyperparathyroidism, DDD, OA, gout, BEN on CPAP initiallypresented to [facility] for generalized weakness, n/v, diarrhea, and chest pain, transferredto [facility] on 06/05 for LHC/PCI scheduled for 06/06. Pt was found to have an NSTEMI at OSH and was continued on hep gtt, asa81, plavix at [facility]. He was transferred to MICU after he [...] for further evaluation of GB pathology - ACCS will continue to follow Plan above has been discussed with attending Dr. Gamez. Please contact [facility] Inpatient Consults at with any questions [...] OA, gout, BEN on CPAP initiallypresented to [facility] for generalized weakness, n/v, diarrhea, and chest pain, transferredto [facility] on 06/05 for LHC/PCI scheduled for 06/06. Pt was found to have an NSTEMI at OSH and was continued on hep gtt, asa81, plavix at [facility]. He was transferred to MICU after he [...] (coronary artery disease) Chest pain Diabetes mellitus ([facility]) Diabetes mellitus type I ([facility]/HCC) Dialysis patient ([facility]) ESRD on dialysis ([facility]) GERD (gastroesophageal reflux disease) Hyperlipidemia Hypertension Sleep [...] evaluation. The pelvis is excluded from the bankw-cp-peve and unavailable for interpretation. A rounded density [...] agrees with it. Electronically signed by: Saurav Emesron M.D. XR Chest 1 View Result Date: [...] only and have not been reviewed by [facility]. There will be no report generated by a [facility] Radiologist. XR Outside Reference Result Date: 06/05/2022 These images are for Reference purposes only and have not been reviewed by [facility]. There will be no report generated by a [facility] Radiologist. US RUQ Result Date: 06/06/2022 Sonographic [...] only and have not been reviewed by [facility]. There will be no report generated by a [facility] Radiologist. IR Outside Reference Result Date: 06/05/2022 These images are for Reference purposes only and have not been reviewed by [facility]. There will be no report generated by a [facility] Radiologist. Assessment/Plan: Please see top of note. Cosigned by Modesta Gamez MD at 06/07/2022 9:34 PM CDT Associated attestation - Modesta Gamez MD - 06/07/2022 9:34 PM CDT I have seen and examined the patient on 06/06/2022. I agree with the findings and plan of care as documented in the resident's/fellow's note. Nona Gamez MD Instructor, Acute and Critical Care Surgery [facility] [employer] ' * Hortencia Slade MD - 06/05/2022 2:37 PM CDTAssociated Order(s): CONSULT TO ENDOCRINOLOGY DIABETES Endocrinology & Diabetes Consult Note Patient: Adelia Garvin Jr., 51 y.o. male (: 1970) Room: [id number]/[id number] ( ) LOS: 1 Consult Question: T1DM on insulin pump (Requesting Provider: Champ Osborne MD PhD) Adelia Garvin Jr. is a 51 y.o. male with PMHx CHF (EF 50% in 2017), atrial fibrillation not on OAC, HTN/HLD, CAD s/p PCI, ESRD on PD, hyperparathyroidism presenting with weakness, N/V, diarrhea and chest pain. He is scheduled for [facility] on 06/06. Diabetes service consulted for T1DM [...] RSSI. He will be NPO 06/06 for C. Type of Diabetes: 1 Duration of diabetes: [...] (coronary artery disease), Chest pain, Diabetes mellitus ([facility]), Diabetes mellitus type I ([facility] Dialysis patient ([facility]), ESRD on dialysis ([facility]), GERD (gastroesophageal reflux disease), Hyperlipidemia, Hypertension, Sleep [...] is 44.91 kg/m??. I/O this shift: In: 89263 [P.O.:60; Other:78435] Out: 95307 [Other:18548] Physical Exam Gen : no acute distress, [...] Plan 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, with skilled nursing use of insulin, complicated by ESRD on [...] ## Discharge Planning - Follow-up with home sourcing analyst Discussed with Dr. Huynh and primary team [...] Date: 2019 Dialysis Days: nightly Dialysis Center: [place], [place] Dialysis Medicine: Dialysis Prescription: CCPD - 4 exchanges of 2.8 L each, total time 9 hours, total volume : 11.2 L.All 2.5 % bags and then a manual day time exchange with 1 L purple bag. Past Medical History: Diagnosis Date CAD (coronary artery disease) Chest pain Diabetes mellitus (CMS/HCC) Diabetes mellitus type I (CMS/HCC) Dialysis patient (CMS/HCC) ESRD on dialysis (CMS/[facility]) GERD (gastroesophageal reflux disease) Hyperlipidemia Hypertension Sleep [...] No rash or lesions on visible skin FRONT OFFICE DEVELOPER: Alert Ox3. No focal motor deficits, no [...] cell count and diff. Vonnie Cody MD car sales associate documented in this encounter Nursing Notes * Tequila Ingram RN - 06/28/2022 8:08 PM CST 9 hour CCPD treatment started as ordered. PD catheter site is clear and free of drainage. PD site was cleansed and gentamicin cream applied at entrance. Covered with gauze dressing. Treatment setup aseptically per protocol. ONAL SECRETARY * Pj Duckworth RN - 06/28/2022 6:15 AM CST 06/28/22 0600 Vitals BP 124/62 Temp 36.7 ??C (98.1 ??F) Temp src Oral Pulse 70 Resp 16 SpO2 98 % Weight 120.3 kg (265 lb 3.4 oz) Peritoneal Dialysis Dialysis Type CCPD Peritoneal Dialysis Setup Completed by [employer] support specialist Status End Cycle Number 4 Machine Type [place] [employer] Pro Machine # [id number] Initial Drain Volume (mL) 312 mL Last Fill Volume (mL) 999 mL Fill Volume In (mL) 24578 mL Effluent Volume Out (mL) 77408 ml Effluent Appearance Clear;Yellow Balance This Exchange (mL) 1788 mL Peritoneal Dialysis Catheter Continuous cycling No placement date or time found. Placed by External Staff?: Other (Comment) Dialysis Type: Continuous cycling Status Deaccessed;Clamped Dressing Gauze Dressing Status Clean, dry, intact ONAL SECRETARY * Pj Duckworth RN - 06/27/2022 8:21 PM CST Started CCPD. Target treatment time is 9 hours. ONAL SECRETARY * Pj Duckworth RN - 06/27/2022 6:24 AM CST 06/27/22 0600 Peritoneal Dialysis Dialysis Type CCPD Peritoneal Dialysis Setup Completed by starch[employer] support specialist Status End Cycle Number 4 Machine Type [facility] [employer] Pro Machine # [id number] Initial Drain Volume (mL) 690 mL Last Fill Volume (mL) 785 mL Fill Volume In (mL) 34464 mL Effluent Volume Out (mL) 61033 ml Effluent Appearance Clear;Yellow Balance This Exchange (mL) 1944 mL Peritoneal Dialysis Catheter Continuous cycling No placement date or time found. Placed by External Staff?: Other (Comment) Dialysis Type: Continuous cycling Status Deaccessed;Clamped Dressing Gauze Dressing Status Clean, dry, intact ONAL SECRETARY * Pj Duckworth RN - 06/26/2022 7:52 PM CST Started CCPD. Target treatment time is 9 hours. ONAL SECRETARY * Pj Duckworth RN - 06/25/2022 8:41 PM CDT Started CCPD. Target treatment time is 9 hours. * Pj Duckworth RN - 06/25/2022 6:09 AM CDT 06/25/22 0600 Peritoneal Dialysis Dialysis Type CCPD Peritoneal Dialysis Setup Completed by [employer] support specialist Status End Cycle Number 4 Machine Type [place] [employer] Pro Machine # [id number] Initial Drain Volume (mL) 423 mL Last Fill Volume (mL) 999 mL Fill Volume In (mL) 30535 mL Effluent Volume Out (mL) 16256 ml Effluent Appearance Clear;Yellow Balance This Exchange [...] at 150 ml/hr. 4K/2.5Ca dialysate fluid used. ENERGY SPECIALIST has no questions or concerns at this time, contact number left at bedside. * Mell Daniel RN - 06/19/2022 10:01 AM CDT CVVHDF reset. Prismaflex #12 used. Warmer set at 40.5 using toney tubing through RIJ catheter. All pressures within normal limits. UF rate at 200 ml/hr. 4K/2.5Ca dialysate fluid used. ENERGY SPECIALIST has no questions or concerns at this [...] Type CCPD Peritoneal Dialysis Setup Completed by [employer] support specialist Status End Initial Drain Volume (mL) 429 [...] Change Due 06/19/22 Site Assessment Clean and dry;[place] * Jaja Mojica RN - 06/17/2022 12:43 PM CDT CCPD initiated per protocol and per order. Aury, ENERGY SPECIALIST notified and contact phone number left atthe bedside. * Jaja Mojica RN - 06/17/2022 12:21 PM CDT Pt's CCPD tx ended per protocol. Last fill of 0mL, total UF of 1213 clear, yellow, non odorous effluent. Aury, ENERGY SPECIALIST notified. Setting up next CCPD ordered to [...] then started as per pt request. * Magallon, Jp, RN - 06/15/2022 8:38 PM CDT PD Tx started using 2.5% Ca Low dianeal fluid last bag 1000cc 7.5% after soaking catheter cap and first 4 inches of catheter with Alkavis and 4x4s for >5 minutes while setting up machine and doing dressing change. Area of insertion of Catheter in abdomen is without redness or drainage. Skin cleaned with [place] [employer] skin cleanser, dried, then a thin layer of gentamycin ointment applied to insertion site, with 2x2s and Tegaderm. Monitored for complications while first drain performed, withoutevidence at this time. * Tequila Ingram RN [...] Blood flow and pressures WNL. Spoke to ENERGY SPECIALISTLUAN Ramos, she has no questions or concerns at [...] on venous line. Blood flow and pressures WNL.hose mender has no questions or concerns at present [...] toney warmer, current warmer temperature 42.9C. * iLssy Zuleta RN - 06/10/2022 1:44 PM CDT [...] 06/07/2022 7:32 PM [place] [id number] at 1637 and all initial hookups made. [...] degrees with alexander cord on return line. ENERGY SPECIALIST has no questions or concerns at this [...] orders entered [place]. [place] [address] ml over 4Cycles of 2800 ml each [...] gout, BEN on CPAP initially presented to [facility] for generalized weakness, n/v, diarrhea, and chest [...] another 6u IV regular insulin given 06/08: [facility] - -C/f DKA given BG in 300s, [...] started to prevent him from going to liupuog89/20: CCM - #DKA - resolved In CCU, patient [...] part of the patient???s medical record. Sincerely, [facility] Information Management ONAL SECRETARY * Consults, Subsequent - Dora Delarosa NP - 06/29/2022 12:55 PM PERSONAL SECRETARY Endocrinology & Diabetes Progress Note Patient: Adelia Garvin Jr., 51 y.o. male (: 1970) Room: [place] [id number] ( ) LOS: 25 Adelia Garvin Jr. [...] agitation. 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, with terminal carman use of insulin, complicated by ESRD on PD, CAD s/p PCI, CHF - HbA1c 7.4% - Uses Omnipod and Dexcom G6 at home, not currently on this- doesn't have the supplies -On significantly higher basal rates on pump at night due to peritoneal dialysis -home settings: Basal rate 0330 >>1.7 0800 >> 0.8 2000 >> 5.8 ICR1:6.5 ISF1:25 POL151 TIA 4 Over the previous 24 hours, [...] recommend increasing the basal insulin dose from 5503-3269 today. We will continue to intensely monitor [...] 60.6=>65.85 0330 1.0=>1.7 units/hour 0800 0.8 units/hour 2000 5.8 units/hour [...] yearly or sooner as indicated by your medical language specialist # ESRD on PD - CKD and ESRD are independent risk factors for hypoglycemia ## Discharge Planning - Follow-up with home sourcing analyst -- Dora Delarosa NP Endocrinology, Metabolism, & Lipid Research Contact Info: New Consults: [phone]) General Endocrine (Non-Diabetes): [phone] (Check 'Treatment Team' assignment for Diabetes 1 vs 2 vs 3) Diabetes 1: Diabetes Fellow: [phone] Diabetes 2: Dora Delarosa NP: [phone] Diabetes 3: See Treatment Team Provider (or call Dora Delarosa, above) Diabetes After-Hours & Weekends: Diabetes Fellow ONAL SECRETARY * Plan of Care - Elsie Gonzalez RN - 06/29/2022 11:32 AM CST [facility] [id number] Post Acute Care Transfer Report Adelia Garvin Jr. , : 1970, Sex: M Adm: 06/04/2022, D/C: Post Acute Care Transfer Report Patient Demographics Address [address] [place] [address] (Home) *Preferred* E-mail Address [email or web address] PCP and Center Primary Care Provider Aditya Castro MD [facility] Parent Location Code Status Information Code Status Full Code Physicians Chat With All Treatment Team Provider ED Prov Role Provider Team Specialty From To Frank Bowers MD -- Attending Provider -- Internal Medicine 06/28/22 0513 -- Champ Osboren MD PhD -- Surgeon -- Cardiology 06/06/22 [...] Valerio PA Hyperlipidemia 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[place] artery of [place] heart with stable angina pectoris (CMS/[facility]) (HCC) 05/23/2017 - Present 06/22/2022 by Luiz Lewis DO Entered by Abelardo Petit MD History of coronary artery stent placement 05/23/2017 - Present 05/23/2017 by Abelardo Petit MD Entered by Abelardo Petit MD Hypertension (Chronic) Chronic 01/18/2013 - Present 11/22/2013 by Intnicole Conv, Tw Problems Entered by Intf Conv Tw Problems Type 1 diabetes mellitus (HCC) Chronic 01/18/2013 - Present 06/29/2022 by Frank Bowers MD Entered by Intf Conv Tw Problems All Assessment & Plan Notes [...] Robbins Overview Signed 12/29/2020 3:35 PM by Rosendo, Valerie Added automatically from request for surgery [id number] DELETED: Angina pectoris (HCC) 06/04/2022 - Present [...] Hypotension 06/03/2022 - Present 06/22/2022 by Luiz Lewis, DO Entered by Aj Poe MD Overview Signed 06/10/2022 7:33 AM by Aj Poe MD Added automatically from request for surgery [id number] Anemia 06/22/2022 - Present 06/29/2022 by Frank Bowers MD Entered by Luiz Lewis DO All Assessment & Plan Notes ESRD (end stage renal disease) ([facility]) ([facility]) 06/22/2022 - Present 06/29/2022 by Frank Bowers MD Entered by Luiz Lewis DO All Assessment & Plan Notes Acute on chronic HFrEF (heart failure with reduced ejection fraction) ([facility]) 06/22/2022 - Present 06/29/2022 by Frank Bowers MD Entered by Luiz Lewis DO All Assessment & Plan Notes Atrial fibrillation ([facility]) ([facility]) 06/22/2022 - Present 06/29/2022 by Frank Bowers MD Entered by Luiz Lewis DO All Assessment & Plan Notes Principal NSTEMI (non-ST elevated myocardial infarction) ([facility]) ([facility]) 06/22/2022 - Present 06/29/2022 by Frank Bowers MD Entered by Luiz Lewis DO All Assessment & Plan Notes Cardiogenic shock ([facility]) 06/22/2022 - Present 06/29/2022 by Frank Bowers [...] ...filed at 06/04/2022 2300 Patient Language and Mosque Flowsheet Row Most Recent Value Patient's Preferred Language eng Cultural Requests During Hospitalization none Spiritual Requests During Hospitalization none Nutrition Assess Flowsheet Row Most Recent Value Feeding Level of Assistance Able to feed self ............filed at 06/28/2022 1300 Appetite Good ............filed at 06/28/2022 1300 Vitals (last day) Date/Time Temp Core (Body) Temperature Pulse Resp BP SpO2 Weight Who 06/29/22 0815 -- -- 71 -- -- -- -- JR 06/29/22 0743 36.8 ??C (98.2 ??F) -- 70 18 124/52 99 % -- RS 06/29/22 0632 -- -- -- -- -- -- 118.1 kg (260 lb 6.4 oz) 06/28/222316 37.2 ??C (99 ??F) -- 18 113/51 95 % -- LC 11/08/22 2010 37.2 ??C (99 ??F) -- 70 18 113/56 96 % -- LC 06/28/22 1500 37.2 ??C (99 ??F) -- 73 20 98/54 93 % -- VM 06/28/22 0823 36.4 ??C (97.5 ??F) -- 71 18 125/59 97 % -- TM 06/28/22 0600 36.7 ??C (98.1 ??F) -- 70 16 124/62 98 % 120.3 kg (265 lb 3.4 oz) SURINDER Intake/Output 06/26/22 0700 - 06/27/22 0659 06/27/22 0700 - 06/28/22 0659 06/28/22 0700 - 06/29/22 0659 06/29/22 0700 - 06/30/22 0659 Total Total 8665-6200 0094-8254 0725-7464 Total 1742-1476 7966-9393 2359-0526 Total Intake (ml) 38691 98210 400 360 85895 91969 360 -- -- 360 Output (ml) 60400 70565 150 -- 19614 86143 -- -- -- -- Net (ml) -1709 -1301 250 360 -1784 -1174 360 -- -- 360 Last Weight -- [...] as: PriLOSEC acetaminophen (TYLENOL) tablet 1,000 mg [[id number]] Ordering Provider: Luiz Lewis DO Status: Dispensed Ordered On: 06/22/221923 Start: 06/22/221929 Ordered Dose (Remaining/Total): 1,000 mg (--/--) Route: oral Frequency: Every 6 hours PRN Ordered Rate/Order Duration: -- / -- Timestamps Action Dose Route Other Information Performed 06/27/221746 Documented: 06/27/221746 Given 1,000 mg oral Performed by: Manda Lake RN Scanned Package: 74165-873-63, 55487-691-86 acetaminophen (TYLENOL) tablet 325 mg [[id number]] Ordering Provider: Meme Castro MD Status: Completed (Past End Date/Time) Ordered On: 06/15/22 1014 Starts/Ends: 06/15/22 1045 - 06/15/22 0945 Ordered Dose (Remaining/Total): 325 mg (0/1) Route: oral Frequency: Once Ordered Rate/Order Duration: -- / -- Timestamps Action Dose Route Other Information Performed 06/15/22 0945 Documented: 06/15/22 1104 Given 325 mg oral Performed by: Ravi Hollingsworth RN Scanned Package: [address]-6 albuterol HFA (PROVENTIL HFA,VENTOLIN HFA,PROAIR HFA) 90 mcg/actuation inhaler 2 puff [[id number]] Ordering Provider: Fernando Torres MD Status: Dispensed Ordered On: 06/05/22244 Start: 06/05/22228 Ordered Dose (Remaining/Total): 2 puff (--/--) Route: inhalation Frequency: Every 6 hours PRN (respite care provider) Ordered Rate/Order Duration: -- / -- Timestamps Action Dose Route Other Information Performed 06/15/22249 Documented: 06/15/22252 Given 2 puff inhalation Performed by: Juanito Hernandez RRT Scanned Package: 5080-8609-88 alteplase (CATHFLO) 1 mg/mL syringe (premix) 1 mg [[id number]] Ordering Provider: Lavern Morrison MD Status: Completed (Past End Date/Time) Ordered On: 06/09/22409 Starts/Ends: 06/09/22444 - 06/09/22447 Ordered Dose (Remaining/Total): 1 mg (0/1) Route: intra-catheter Frequency: Once Ordered Rate/Order Duration: -- / -- Admin Instructions: 60 to 120 minute dwell time. Refrigerate Timestamps Action Dose Route Other Information Performed 06/09/22447 Documented: 06/09/22447 Given 1 mg intra-catheter Performed by: Rachel Masters RN Scanned Package: 2985-2072-67 alteplase (CATHFLO) 1 mg/mL syringe (premix) 1 mg [[id number]] Ordering Provider: Robert Henry MD Status: Completed (Past End Date/Time) Ordered On: 06/11/22 0756 Starts/Ends: 06/11/22 0830 - 06/11/22 09 Ordered Dose (Remaining/Total): 1 mg (0/1) Route: intra-catheter Frequency: Once Ordered Rate/Order Duration: -- / -- Admin Instructions: 60 to 120 minute dwell time. Refrigerate Timestamps Action Dose Route Other Information Performed 06/11/22920 Documented: 06/11/22924 Given 1 mg intra-catheter Performed by: Manda Pickett RN Scanned Package: 1363-3424-65 alteplase (CATHFLO) 1 mg/mL syringe (premix) 2 mg [[id number]] Ordering Provider: Robert Henry MD Status: Completed (Past End Date/Time) Ordered On: 06/11/221655 Starts/Ends: 06/11/221729 - 06/11/221809 Ordered Dose (Remaining/Total): 2 mg (0/1) Route: intra-catheter Frequency: Once Ordered Rate/Order Duration: -- / -- Admin Instructions: 60 to 120 minute dwell time. Refrigerate Timestamps Action Dose Route Other Information Performed 06/11/221809 Documented: 06/11/221809 Given 2 mg intra-catheter Performed by: Manda Pickett RN Scanned Package: 5427-6651-76, 3559-2438-64 alteplase (CATHFLO) 1 mg/mL syringe (premix) 2 mg [[id number]] Ordering Provider: Robert Henry MD Status: Completed (Past End Date/Time) Ordered On: 06/11/221655 Starts/Ends: 06/11/221729 - 06/11/221810 Ordered Dose (Remaining/Total): 2 mg (0/1) Route: intra-catheter Frequency: Once Ordered Rate/Order Duration: -- / -- Admin Instructions: 60 to 120 minute dwell time. Refrigerate Timestamps Action Dose Route Other Information Performed 06/11/221810 Documented: 06/11/221810 Given 2 mg intra-catheter Performed by: Manda Pickett RN Scanned Package: 0618-5781-27, 5277-2858-23 amiodarone (NEXTERONE) 150 mg/100 mL (1.5 mg/mL) in dextrose (premix) 150 mg [[id number]] Ordering Provider: Jeffrey Green MD Status: Completed (Past End Date/Time) Ordered On: 10/29/22 1836 Starts/Ends: 06/18/22 191 - 06/18/221851 Ordered Dose (Remaining/Total): 150 mg [...] (1.5 mg/mL) in dextrose (premix) 150 mg [[id number]] Ordering Provider: Lavern Morrison MD Status: Completed [...] Performed by: Carlos Esparza RN Scanned Package: 75384-636-46 amiodarone (NEXTERONE) 150 mg/100 mL (1.5 mg/mL) in dextrose (premix) 150 mg [[id number]] Ordering Provider: Lavern Morrison MD Status: Completed [...] Performed by: Carlos Esparza RN Scanned Package: 66829-728-68 amiodarone (NEXTERONE) 150 mg/100 mL (1.5 mg/mL) in dextrose (premix) 150 mg [[id number]] Ordering Provider: Tyra De La Torre MD Status: Completed (Past End Date/Time) Ordered On: 06/20/22 1630 Starts/Ends: 06/20/22 1700 - 06/20/22 174 Ordered Dose (Remaining/Total): 150 mg (0/1) Route: intravenous Frequency: Once Ordered Rate/Order Duration: 600 mL/hr / 10 Minutes Admin Instructions: Use filter 0.22 micron or less Timestamps Action Dose / Rate / Duration Route Other Information Performed 06/20/221736 Documented: 06/20/221736 New Bag 150 mg 600 mL/hr 10 Minutes intravenous Performed by: Margaret Escobar RN aspirin chewable tablet 81 mg [[id number]] Ordering Provider: Marcelina Pickard NP Status: Completed (Past End Date/Time) Ordered On: 06/07/22 1112 Starts/Ends: 06/07/22 1145 - 06/07/22 1137 Ordered Dose (Remaining/Total): 81 mg (0/1) Route: oral Frequency: Once Ordered Rate/Order Duration: -- / -- Timestamps Action Dose Route Other Information Performed 06/07/22 1137 Documented: 06/07/22 1138 Given 81 mg oral Performed by: Carolyn Troncoso RN Scanned Package: 9340-1458-19 aspirin chewable tablet 81 mg [[id number]] Ordering Provider: Luiz Lewis DO Status: Dispensed Ordered On: 06/22/22 1924 Start: 06/23/22 0900 Ordered Dose (Remaining/Total): 81 mg (--/--) Route: oral Frequency: Daily Ordered Rate/Order Duration: -- / -- Timestamps Action Dose Route Other Information Performed 06/29/22 0823 Documented: 06/29/22 0824 Given 81 mg oral Performed by: Manda Lake RN Scanned Package: 9297-9352-15 atorvastatin (LIPITOR) tablet 80 mg [[id number]] Ordering Provider: Luiz Lewis DO Status: Dispensed Ordered On: 06/22/221923 Start: 06/23/22899 Ordered Dose (Remaining/Total): 80 mg (--/--) Route: oral Frequency: Daily Ordered Rate/Order Duration: -- / -- Timestamps Action Dose Route Other Information Performed 06/29/22822 Documented: 06/29/22823 Given 80 mg oral Performed by: Manda Lake RN Scanned Package: [address]-0 azithromycin (ZITHROMAX) tablet 500 mg [[id number]] Ordering Provider: Russ Milner MD Status: Completed (Past End Date/Time) Ordered On: 06/05/225 Starts/Ends: 06/05/22899 - 06/05/22 0849 Ordered Dose (Remaining/Total): 500 mg (0/1) Route: oral Frequency: Once Ordered Rate/Order Duration: -- / -- Timestamps Action Dose Route Other Information Performed 06/05/22848 Documented: 06/05/22 0850 Given 500 mg oral Performed by: Nona Fernandez RN Scanned Package: [address]-5, [address]-7 barium sulfate (VARIBAR NECTAR) 40 % (w/v) nectar [[id number]] Ordering Provider: Tyra De La Torre MD Status: Completed (Past End Date/Time) Ordered On: 06/21/221416 Starts/Ends: 06/21/221413 - 06/21/221413 Ordered Dose (Remaining/Total): -- (0/1) Route: oral Frequency: Once in imaging Ordered Rate/Order Duration: -- / -- Admin Instructions: Shake well Timestamps Action Dose Route Other Information Performed 06/21/221413 Documented: 06/21/221427 Contrast Given 20 mL oral Performed by: Carey Vallejo RT barium sulfate (VARIBAR PUDDING) 40 % (w/v), 30% (w/w) pudding [[id number]] Ordering Provider: Tyra De La Torre MD Status: Completed (Past End Date/Time) Ordered On: 06/21/221416 Starts/Ends: 06/21/221408 - 06/21/221408 Ordered Dose (Remaining/Total): -- (0) Route: oral Frequency: Once in imaging Ordered Rate/Order Duration: -- / -- Timestamps Action Dose Route Other Information Performed 06/21/221408 Documented: 06/21/221427 Contrast Given 10 mL oral Performed by: Carey Vallejo RT barium sulfate (VARIBAR THIN LIQUID) 81 % (w/w) thin liquid [[id number]] Ordering Provider: Tyra De La Torre MD Status: Completed (Past End Date/Time) Ordered On: 06/21/221416 Starts/Ends: 06/21/221406 - 06/21/221406 Ordered Dose (Remaining/Total): -- (0) Route: oral Frequency: Once in imaging Ordered Rate/Order Duration: -- / -- Timestamps Action Dose Route Other Information Performed 06/21/221406 Documented: 06/21/221426 Contrast Given 60 mL oral Performed by: Carey Vallejo RT barium sulfate (VARIBAR) 40 % (w/v) 29% (w/w) suspension 250 mL [[id number]] Ordering Provider: Tyra De La Torre MD Status: Completed (Past End Date/Time) Ordered On: 06/21/221416 Starts/Ends: 06/21/221416 - 06/21/221416 Ordered Dose (Remaining/Total): 250 mL (0) Route: oral Frequency: Once in imaging Ordered Rate/Order Duration: -- / -- Admin Instructions: Shake well Timestamps Action Dose Route Other Information Performed 06/21/221416 Documented: 06/21/221428 Contrast Given 250 mL oral Performed by: Carey Vallejo RT Comments: 15 ml given calcitRIOL (ROCALTROL) capsule 0.25 mcg [[id number]] Ordering Provider: Tyra De La Torre MD Status: Dispensed Ordered On: 06/22/22921 Start: 06/22/22 1000 Ordered Dose (Remaining/Total): 0.25 mcg (--/--) Route: oral Frequency: Daily Ordered Rate/Order Duration: -- / -- Timestamps Action Dose Route Other Information Performed 06/29/22822 Documented: 06/29/22823 Given 0.25 mcg oral Performed by: Manda Lake RN Scanned Package: 51135-597-95 calcium acetate(phosphat bind) (PHOSLO) capsule 667 mg [[id number]] Ordering Provider: Fernando Torres MD Status: Dispensed Ordered On: 06/05/22244 Start: 06/05/22799 Ordered Dose (Remaining/Total): 667 mg (--/--) Route: oral Frequency: 4 times daily Ordered Rate/Order Duration: -- / -- Admin Instructions: Take with food Timestamps Action Dose Route Other Information Performed 06/29/22822 Documented: 06/29/22823 Given 667 mg oral Performed by: Manda Lake RN Scanned Package: 50227-609-77 calcium carbonate (TUMS) chewable tablet 500 mg [[id number]] Ordering Provider: Earl Samuels MD Status: Completed (Past End Date/Time) Ordered On: 06/24/222111 Starts/Ends: 06/24/222144 - 06/24/222137 Ordered Dose (Remaining/Total): 200 mg of elemental calcium (0/1) Route: oral Frequency: Once Ordered Rate/Order Duration: -- / -- Timestamps Action Dose Route Other Information Performed 06/24/222137 Documented: 06/24/222137 Given 500 mg oral Performed by: Sasha Subramanian RN Scanned Package: 8731-2900-39 clopidogreL (PLAVIX) tablet 600 mg [[id number]] Ordering Provider: Finn Dupont MD Status: Completed (Past End Date/Time) Ordered On: 06/07/22806 Starts/Ends: 06/07/22844 - 06/07/22956 Ordered Dose (Remaining/Total): 600 mg (0/1) Route: oral Frequency: Once Ordered Rate/Order Duration: -- / -- Timestamps Action Dose Route Other Information Performed 06/07/22956 Documented: 06/07/22957 Given 600 mg oral Performed by: Caitlyn Guzman RN Scanned Package: 64146-754-85, 51128-524-96 clopidogreL (PLAVIX) tablet 75 mg [[id number]] Ordering Provider: Luiz Lewis DO Status: Dispensed Ordered On: 06/22/221923 Start: 06/23/22 0900 Ordered Dose (Remaining/Total): 75 mg (--/--) Route: oral Frequency: Daily Ordered Rate/Order Duration: -- / -- Timestamps Action Dose Route Other Information Performed 06/29/22822 Documented: 06/29/22823 Given 75 mg oral Performed by: Manda Lake RN Scanned Package: 4855-7203-12 Dianeal low calcium-dextrose 1.5 % 2,000 mL dialysis solution [[id number]] Ordering Provider: James Horvath MD Status: Dispensed (Past End Date/Time) Ordered On: 06/13/22722 Starts/Ends: 06/13/22 08 - 06/14/22 1046 Ordered Dose (Remaining/Total): -- (--/--) Route: intraperitoneal Frequency: Continuous Ordered Rate/Order Duration: -- / -- Timestamps Action Rate Route Other Information Performed 06/13/221046 Documented: 06/13/22 104 New Bag 500 mL/hr intraperitoneal Performed by: Elly Shipman RN Dianeal low calcium-dextrose 2.5 % 2,000 mL dialysis solution [[id number]] Ordering Provider: Tom Mendez MD Status: Dispensed (Past End Date/Time) Ordered On: 06/26/22 1309 Starts/Ends: 06/26/22 1345 - 06/27/22 193 Ordered Dose (Remaining/Total): -- (--/--) Route: intraperitoneal Frequency: Continuous Ordered Rate/Order Duration: -- / -- Question Answer Comment CCPD bag number: 3 -- Timestamps Action Dose / Rate / Duration Route Other Information Performed 06/26/221937 Documented: 06/26/221937 New Bag -- intraperitoneal Performed by: Pj Duckworth RN Dianeal low calcium-dextrose 2.5 % 5,000 mL dialysis solution [[id number]] Ordering Provider: Yovanny Curtis MD Status: Dispensed [...] calcium-dextrose 2.5 % 5,000 mL dialysis solution [[id number]] Ordering Provider: Yovanny Curtis MD Status: Dispensed [...] calcium-dextrose 2.5 % 5,000 mL dialysis solution [[id number]] Ordering Provider: Tom Mendez MD Status: Dispensed (Past End Date/Time) Ordered On: 06/26/22 1309 Starts/Ends: 06/26/22 134 - 06/27/221935 Ordered Dose (Remaining/Total): -- (--/--) Route: intraperitoneal Frequency: Continuous Ordered Rate/Order Duration: -- / -- Question Answer Comment CCPD bag number: 1 -- Timestamps Action Dose / Rate / Duration Route Other Information Performed 06/26/221936 Documented: 06/26/221937 New Bag -- intraperitoneal Performed by: Pj Duckworth RN Dianeal low calcium-dextrose 2.5 % 5,000 mL dialysis solution [[id number]] Ordering Provider: Tom Mendez MD Status: Dispensed (Past End Date/Time) Ordered On: 06/26/22 130 Starts/Ends: 06/26/22 1345 - 06/27/221935 Ordered Dose (Remaining/Total): -- (--/--) Route: intraperitoneal Frequency: Continuous Ordered Rate/Order Duration: -- / -- Question Answer Comment CCPD bag number: 2 -- Timestamps Action Dose / Rate / Duration Route Other Information Performed 06/26/221936 Documented: 06/26/221936 New Bag -- intraperitoneal Performed by: Pj Duckwroth RN diphenhydrAMINE (BENADRYL) capsule 50 mg [[id number]] Ordering Provider: Veronica Tavares MD Status: Completed (Past End Date/Time) Ordered On: 06/06/221343 Starts/Ends: 06/07/22 1200 - 06/07/221017 Ordered Dose (Remaining/Total): 50 mg (0/1) Route: oral Frequency: Once Ordered Rate/Order Duration: -- / -- Admin Instructions: Administer dose 1 hour prior to contrast media injection. 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 Scanned Package: 7767-0679-37 Extraneal 7.5% ULTRABAG 2,000 mL dialysis solution [[id number]] Ordering Provider: Tom Mendez MD Status: Dispensed (Past End Date/Time) Ordered On: 06/26/221308 Starts/Ends: 06/26/221344 - 06/27/221936 Ordered Dose (Remaining/Total): -- (--/--) Route: intraperitoneal Frequency: Continuous Ordered Rate/Order Duration: -- / -- Timestamps Action Dose / Rate / Duration Route Other Information Performed 06/26/221937 Documented: 06/26/221937 New Bag -- intraperitoneal Performed by: Pj Duckworth, LUAN ezetimibe (ZETIA) tablet 10 mg [[id number]] Ordering Provider: Luiz Lewis DO Status: Dispensed Ordered On: 06/22/22 1924 Start: 06/23/22 0900 Ordered Dose (Remaining/Total): 10 mg (--/--) Route: oral Frequency: Daily Ordered Rate/Order Duration: -- / -- Timestamps Action Dose Route Other Information Performed 06/29/22822 Documented: 06/29/22823 Given 10 mg oral Performed by: Manda Lake RN Scanned Package: 70189-543-99 furosemide (LASIX) 10 mg/mL injection 120 mg [[id number]] Ordering Provider: Dimitrios Hensley MD Status: Completed (Past End Date/Time) Ordered On: 06/05/221517 Starts/Ends: 06/05/221599 - 06/05/221517 Ordered Dose (Remaining/Total): 120 mg (0) Route: intravenous Frequency: Once Ordered Rate/Order Duration: -- / -- Admin Instructions: For IV push: administer doses < 160 mg at a rate of 20 -40 mg/min. Doses >/= 160 mg should be administered no faster than 4 mg/min. Room temperature only Timestamps Action Dose Route Other Information Performed 06/05/221517 Documented: 06/05/221517 Given 120 mg intravenous Performed by: Nona Fernandez RN Scanned Package: 1651-8310-63, 4254-3697-78 gentamicin (GARAMYCIN) 0.1 % cream [[id number]] Ordering Provider: James Horvath MD Status: Dispensed [...] Performed by: Tequila Ingram RN Scanned Package: 82200-988-16 heparin 1,000 unit/mL injection 1.5-6.9 mL [[id number]] Ordering Provider: James Horvath MD Status: Completed (Past End Date/Time) Ordered On: 06/20/22 1224 Starts/Ends: 06/20/22 1300 - 06/20/221232 Ordered Dose (Remaining/Total): 1.5-6.9 mL (0/1) Route: intra-catheter Frequency: Once Ordered Rate/Order Duration: -- / -- Admin Instructions: [place] volume of catheter lumens post treatment. Give volume based upon electronics mechanic apprentice's recommendation (usual range 1.2 - 3 mL) in each lumen. Timestamps Action Dose Route Other Information Performed 06/20/221232 Documented: 06/20/221232 Given 3 mL intra-catheter Performed by: Margaret Escobar RN Scanned Package: 4558-2688-31 heparin 1,000 unit/mL injection 4,000 Units [[id number]] Ordering Provider: Russ Milner MD Status: Completed [...] Signoff by: Ayleen Doan RN Scanned Package: 0298-1467-59 heparin 5,000 unit/mL injection 5,000 Units [[id number]] Ordering Provider: Robert Henry MD Status: Dispensed Ordered On: 06/22/22 1107 Start: 06/22/22 1400 Ordered Dose (Remaining/Total): 5,000 Units (--/--) Route: subcutaneous Frequency: Every 8 hours scheduled Ordered Rate/Order Duration: -- / -- Timestamps Action Dose Route / Site Other Information Performed 06/29/22500 Documented: 06/29/22 0501 Given 5,000 Units subcutaneous Left Lower Abdomen Performed by: Radha Paul RN Scanned Package: 31329-619-69 heparin in 0.9% sodium chloride 25,000 unit/250 mL infusion (premix) [[id number]] Ordering Provider: Champ Osborne MD PhD Status: Completed (Past End Date/Time) Ordered On: 06/07/221430 Frequency: Continuous PRN Timestamps Action Dose / Rate Route / Site / Linked Line Other Information Performed 06/07/221429 Documented: 06/07/221430 New Bag 14 Units/kg/hr 19.88 mL/hr -- Performed by: Stephanie Bacon RN influenza quadrivalent (FLULAVAL,FLUARIX,FLUZONE) 60 mcg (15 mcg x 4)/0.5 mL vaccine (STANDARD age 6 months and up) 0.5 mL [[id number]] Ordering Provider: Champ Osborne MD PhD Status: Completed (Past End Date/Time) Ordered On: 06/04/222316 Starts/Ends: 06/04/222316 - 06/04/222335 Ordered Dose (Remaining/Total): 0.5 mL (0/1) Route: intramuscular Frequency: During hospitalization Ordered Rate/Order Duration: -- / -- Timestamps Action Dose Route / Site Other Information Performed 06/04/222335 Documented: 06/04/222337 Given 0.5 mL intramuscular Right Deltoid Performed by: Kristie Banegas RN Scanned Package: [id number] insulin lispro (HumaLOG, ADMELOG) 100 unit/mL injection 5 Units [[id number]] Ordering Provider: Lavern Morrison MD Status: Completed (Past End Date/Time) Ordered On: 06/22/22604 Starts/Ends: 06/22/22604 - 06/22/22621 Ordered Dose (Remaining/Total): 5 Units (0/1) Route: subcutaneous Frequency: Once Ordered Rate/Order Duration: -- / -- Timestamps Action Dose Route / Site Other Information Performed 06/22/22621 Documented: 06/22/22621 Given 5 Units subcutaneous Left Lower Abdomen Performed by: Annmarie Ayala RN Scanned Package: [id number] insulin lispro (HumaLOG, ADMELOG) 100 unit/mL injection 5 Units [[id number]] Ordering Provider: Indiana Irwin III, MD Status: Completed (Past End Date/Time) Ordered On: 06/24/22 014 Starts/Ends: 06/24/22 0215 - 06/24/22156 Ordered Dose (Remaining/Total): 5 Units (0/1) Route: subcutaneous Frequency: Once Ordered Rate/Order Duration: -- / -- Timestamps Action Dose Route / Site Other Information Performed 06/24/22156 Documented: 06/24/22157 Given 5 Units subcutaneous Right Upper Arm Performed by: Mell Wlid RN Scanned Package: 1045-1905-59 insulin lispro (HumaLOG, ADMELOG) 100 unit/mL injection 2 Units [[id number]] Ordering Provider: Carey East MD Status: Completed (Past End Date/Time) Ordered On: 06/26/22912 Starts/Ends: 06/26/2245 - 06/26/22914 Ordered Dose (Remaining/Total): 2 Units (0/1) Route: subcutaneous Frequency: Once Ordered Rate/Order Duration: -- / -- Admin Instructions: 2 additional units for total a of 20 units this AM. Timestamps Action Dose Route / Site Other Information Performed 06/26/22914 Documented: 06/26/22914 Given 2 Units subcutaneous Right Upper Arm Performed by: Adelita Self RN Scanned Package: [id number] insulin regular (HumuLIN R, NovoLIN R) 100 unit/mL injection 4 Units [[id number]] Ordering Provider: Payam Connor MD Status: Completed (Past End Date/Time) Ordered On: 06/05/22 1013 Starts/Ends: 06/05/22 1045 - 06/05/22 103 Ordered Dose (Remaining/Total): 4 Units (0/1) Route: intravenous Frequency: Once Ordered Rate/Order Duration: -- / -- Timestamps Action Dose Route Other Information Performed 06/05/221031 Documented: 06/05/22 1033 Given 4 Units intravenous Performed by: Noan Fernandez RN Dual Signoff by: Milagros Hinojosa RN Scanned Package: [id number] insulin regular (HumuLIN R, NovoLIN R) 100 unit/mL injection 6 Units [[id number]] Ordering Provider: Toyin Alberto MD Status: Completed (Past End Date/Time) Ordered On: 06/05/221429 Starts/Ends: 06/05/221514 - 06/05/221433 Ordered Dose (Remaining/Total): 6 Units (0/1) Route: intravenous Frequency: Once Ordered Rate/Order Duration: -- / -- Timestamps Action Dose Route Other Information Performed 06/05/221433 Documented: 06/05/221433 Given 6 Units intravenous Performed by: Nona Fernandez RN Dual Signoff by: Jacob Luna RN Scanned Package: 3280-1841-99 insulin regular (HumuLIN R, NovoLIN R) 100 unit/mL injection 5 Units [[id number]] Ordering Provider: Jeffrey Green MD Status: Completed (Past End Date/Time) Ordered On: 06/07/221746 Starts/Ends: 06/07/221829 - 06/07/221756 Ordered Dose (Remaining/Total): 5 Units (0/1) Route: intravenous Frequency: Once Ordered Rate/Order Duration: -- / -- Timestamps Action Dose Route Other Information Performed 06/07/221756 Documented: 06/07/221801 Given 5 Units intravenous Performed by: Figueroa Jack RN Dual Signoff by: Ravi Hollingsworth RN Scanned Package: [id number] insulin regular (HumuLIN R, NovoLIN R) 100 unit/mL injection 7 Units [[id number]] Ordering Provider: Meme Castro MD Status: Completed [...] Signoff by: Rachel Masters RN Scanned Package: [id number] insulin regular (HumuLIN R, NovoLIN R) 100 unit/mL injection 4 Units [[id number]] Ordering Provider: Jeffrey Green MD Status: Completed (Past End Date/Time) Ordered On: 06/16/22 1133 Starts/Ends: 06/16/22 1215 - 06/16/22 1204 Ordered Dose (Remaining/Total): 4 Units (0/1) Route: intravenous Frequency: Once Ordered Rate/Order Duration: -- / -- Timestamps Action Dose Route Other Information Performed 06/16/22 1204 Documented: 06/16/22 1204 Given 4 Units intravenous Performed by: Ravi Hollingsworth RN Dual Signoff by: Rachel Masters RN Scanned Package: [id number] INSULIN SUBCUTANEOUS PUMP (HUMALOG) 100 UNITS/ML INSULIN PUMP INFUSION (HumaLOG) patient supplied pump 0-25 Units [[id number]] Ordering Provider: Dora Delarosa NP Status: Verified [...] ER (IMDUR) extended release tablet 30 mg [[id number]] Ordering Provider: Carey East MD Status: Dispensed Ordered On: 06/24/221629 Start: 06/24/221714 Ordered Dose (Remaining/Total): 30 mg (--/--) Route: oral Frequency: Daily Ordered Rate/Order Duration: -- / -- Admin Instructions: Tablets that are scored may be split, but do not crush, chew, dissolve, open or otherwise manipulate tablet/capsule. Timestamps Action Dose Route Other Information Performed 06/29/22821 Documented: 06/29/22823 Given 30 mg oral Performed by: Manda Lake RN Scanned Package: [id number] lidocaine PF (XYLOCAINE) 10 mg/mL (1 %) preservative free injection [[id number]] Ordering Provider: Aric Cordova MD Status: Completed (Past End Date/Time) Ordered On: 06/18/22 123 Frequency: Code/trauma/sedation medication Timestamps Action Dose Route Other Information Performed 06/18/22 1231 Documented: 06/18/22 123 Given 10 mL Injection Performed by: Aric Cordova MD Documented by: Nick Delarosa RN losartan (COZAAR) tablet 12.5 mg [[id number]] Ordering Provider: Carey East MD Status: Dispensed Ordered On: 06/24/22 1718 Start: 06/25/22 09 Ordered Dose (Remaining/Total): 12.5 mg (--/--) Route: oral Frequency: Daily Ordered Rate/Order Duration: -- / -- Timestamps Action Dose Route Other Information Performed 06/29/22821 Documented: 06/29/22823 Given 12.5 mg oral Performed by: Manda Lake RN Scanned Package: 31746-019-83 magnesium sulfate 2 g/50 mL in water (premix) 2 g [[id number]] Ordering Provider: Jeffrey Green MD Status: Completed (Past End Date/Time) Ordered On: 06/18/221837 Starts/Ends: 06/18/221914 - 06/18/222024 Ordered Dose (Remaining/Total): 2 g (0/1) Route: intravenous Frequency: Once Ordered Rate/Order Duration: -- / 60 Minutes Timestamps Action Dose / Duration Route Other Information Performed 06/18/221924 Documented: 06/18/221924 New Bag 2 g 60 Minutes intravenous Performed by: Carlos Esparza RN Scanned Package: 9724-6973-23 metoprolol tartrate (LOPRESSOR) immediate release tablet 25 mg [[id number]] Ordering Provider: Carey East MD Status: Dispensed Ordered On: 06/26/22 1551 Start: 06/27/22 0900 Ordered Dose (Remaining/Total): 25 mg (--/--) Route: oral Frequency: 2 times daily Ordered Rate/Order Duration: -- / -- Timestamps Action Dose Route Other Information Performed 06/29/22821 Documented: 06/29/22823 Given 25 mg oral Performed by: Manda Lake RN Scanned Package: 62166-833-30 midazolam (VERSED) 1 mg/mL injection 2 mg [[id number]] Ordering Provider: Lavern Morrison MD Status: Completed (Past End Date/Time) Ordered On: 06/15/221756 Starts/Ends: 06/15/221829 - 06/15/221804 Ordered Dose (Remaining/Total): 2 mg (0/1) Route: intravenous Frequency: Once Ordered Rate/Order Duration: -- / -- Timestamps Action Dose Route Other Information Performed 06/15/221804 Documented: 06/15/221805 Given 2 mg intravenous Performed by: Ravi Hollingsworth RN Scanned Package: 1252-7123-58 midazolam (VERSED) bolus from bag 2 mg [[id number]] Ordering Provider: Jeffrey Green MD Status: Completed (Past End Date/Time) Ordered On: 06/16/221719 Starts/Ends: 06/16/22 1800 - 06/16/221744 Ordered Dose (Remaining/Total): 2 mg (0/1) Route: intravenous Frequency: Once Ordered Rate/Order Duration: -- / -- Timestamps Action Dose Route Other Information Performed 06/16/221744 Documented: 06/16/221756 Bolus from Bag 2 mg intravenous Performed by: Ravi Hollingsworth RN pantoprazole DR (PROTONIX) extended release tablet 40 mg [[id number]] Ordering Provider: Carey East MD Status: Dispensed Ordered On: 06/25/221156 Start: 06/26/22 09 Ordered Dose (Remaining/Total): 40 mg (--/--) Route: oral Frequency: Daily Ordered Rate/Order Duration: -- / -- Admin Instructions: Do not crush, chew, cut, dissolve, open or otherwise manipulate tablet/capsule. Timestamps Action Dose Route Other Information Performed 06/29/22821 Documented: 06/29/22823 Given 40 mg oral Performed by: Manda Lake RN Scanned Package: 2739-1207-53 perflutren protein-a (OPTISON) 0.22 mg/mL injection - ADS Override Pull [[id number]] Status: Completed (Past End Date/Time) Ordered On: 06/08/221422 Starts/Ends: 06/08/221422 - 06/08/221441 Ordered Dose (Remaining/Total): -- (0/1) Route: -- Frequency: -- Ordered Rate/Order Duration: -- / -- Admin Instructions: Created by cabinet override Note to pharmacy: Created by cabinet override Timestamps Action Dose Route / Site / Linked Line Other Information Performed 06/08/221441 Documented: 06/08/221450 Contrast Given 3 mL -- Performed by: Elli Larsen RDCS perflutren protein-a (OPTISON) 3 mL in sodium chloride 0.9% 8 mL syringe [[id number]] Ordering Provider: Meme Castro MD Status: Completed (Past End Date/Time) Ordered On: 06/13/22837 Starts/Ends: 06/13/22837 - 06/13/22934 Ordered Dose (Remaining/Total): 1-8 mL (0/1) Route: intravenous Frequency: Once in imaging Ordered Rate/Order Duration: -- / -- Timestamps Action Dose Route Other Information Performed 06/13/22934 Documented: 06/13/22934 Contrast Given 2 mL intravenous Performed by: Elli Larsen RDCS polyvinyl alcohol-povidone (REFRESH CLASSIC) 1.4-0.6 % ophthalmic solution 1 drop [[id number]] Ordering Provider: Jeffrey Green MD Status: Dispensed Ordered On: 06/16/221911 Start: 06/16/222099 Ordered Dose (Remaining/Total): 1 drop (--/--) Route: each eye Frequency: 4 times daily Ordered Rate/Order Duration: -- / -- Timestamps Action Dose Route Other Information Performed 06/29/22821 Documented: 06/29/22823 Given 1 drop each eye Performed by: Manda Lake RN Scanned Package: 9730-5665-62 potassium chloride (KLOR-CON) packet 40 mEq [[id number]] Ordering Provider: Meme Castro MD Status: Completed [...] Performed by: Rachel Masters RN Scanned Package: [address]-5, [address]-6 potassium chloride 40 mEq/100 mL in sterile water (premix) 40 mEq [[id number]] Ordering Provider: Ashley Baer MD Status: Completed (Past End Date/Time) Ordered On: 06/07/222156 Starts/Ends: 06/07/222229 - 06/08/22208 Ordered Dose (Remaining/Total): 40 mEq (0/1) Route: intravenous Frequency: Once Ordered Rate/Order Duration: 25 mL/hr / 4 Hours Admin Instructions: Total dose = 60 mEq Central line only Timestamps Action Rate Route Other Information Performed 06/07/222299 Documented: 06/08/22 010 Rate/Dose Verify 25 mL/hr intravenous Performed by: Rachel Masters RN potassium chloride 40 mEq/100 mL in sterile water (premix) 40 mEq [[id number]] Ordering Provider: Meme Castro MD Status: Dispensed [...] Performed by: Rachel Masters RN Scanned Package: 4613-0722-49 potassium chloride ER (KLOR-CON) extended release tablet 30 mEq [[id number]] Ordering Provider: Tyra De La Torre MD [...] Performed by: Carlos Esparza RN Scanned Package: 81781-244-56, 12439-851-90, 87593-289-56 potassium chloride ER (KLOR-CON) extended release tablet 20 mEq [[id number]] Ordering Provider: Carey East MD Status: Completed (Past End Date/Time) Ordered On: 06/27/22 08 Starts/Ends: 06/27/22 0900 - 06/27/22 0857 Ordered Dose (Remaining/Total): 20 mEq (0/1) Route: oral Frequency: Once Ordered Rate/Order Duration: -- / -- Admin Instructions: Do not crush, chew, cut, dissolve, open or otherwise manipulate tablet/capsule. Timestamps Action Dose Route Other Information Performed 06/27/22856 Documented: 06/27/22856 Given 20 mEq oral Performed by: Manda Lake RN Scanned Package: 8833-4369-05, 3968-3875-13 predniSONE (DELTASONE) tablet 50 mg [[id number]] Ordering Provider: Veronica Tavares MD Status: Completed (Past End Date/Time) Ordered On: 06/06/22 1344 Starts/Ends: 06/07/22 0000 - 06/07/22 1018 Ordered Dose (Remaining/Total): 50 mg (0/3) Route: oral Frequency: Every 6 hours Ordered Rate/Order Duration: -- / -- Admin Instructions: Call Radiology to schedule procedure after the 1st dose is administered. 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 Scanned Package: 3933-0180-72 ramelteon (ROZEREM) tablet 8 mg [[id number]] Ordering Provider: Marcelina Pickard NP Status: Dispensed Ordered On: 06/08/22918 Start: 06/08/22918 Ordered Dose (Remaining/Total): 8 mg (--/--) Route: feeding tube Frequency: Nightly PRN Ordered Rate/Order Duration: -- / -- Timestamps Action Dose Route Other Information Performed 06/08/222040 Documented: 06/08/222040 Given 8 mg feeding tube Performed by: Rachel Masters RN Scanned Package: [address]-8 sodium bicarbonate 8.4 % (1 mEq/mL) injection 50 mEq [[id number]] Ordering Provider: Champ Osborne MD PhD Status: Completed (Past End Date/Time) Ordered On: 06/07/22 1348 Starts/Ends: 06/07/22 1430 - 06/07/22 133 Ordered Dose (Remaining/Total): 50 mEq (0/1) Route: intravenous Frequency: Once Ordered Rate/Order Duration: -- / -- Timestamps Action Dose Route Other Information Performed 06/07/22 1335 Documented: 06/07/22 1351 Given 50 mEq intravenous Performed by: Stephanie Bacon RN sodium chloride 0.9% IVPB 0-250 mL [[id number]] Ordering Provider: Meme Castro MD Status: Completed [...] Rate Route Other Information Performed 06/20/2257 Documented: 06/20/2258 New Bag 250 mL 50 mL/hr intravenous Performed by: Carlos Esparza RN Scanned Package: 8839-7021-98 sodium chloride 0.9% IVPB 0-250 mL [[id number]] Ordering Provider: Robert Henry MD Status: Completed (Past End Date/Time) Ordered On: 06/20/22933 Starts/Ends: 06/20/221014 - 06/20/22952 Ordered Dose (Remaining/Total): 0-250 mL (0/1) Route: intravenous Frequency: Once Ordered Rate/Order Duration: -- / -- Admin Instructions: Prime blood tubing and administer amount needed to clear line (usually 50-100 mL) after transfusion complete. Timestamps Action Dose Route Other Information Performed 06/20/22952 Documented: 06/20/22952 New Bag 250 mL intravenous Performed by: Margaret Escobar RN Scanned Package: 5345-1000-61 Rex Scale Flowsheet Row Most Recent Value Sensory Perceptions 4 ............filed at 06/29/2022814 Moisture 4 ............filed at 06/29/2022814 Activity 3 ............filed at 06/29/2022814 Mobility 3 ............filed at 06/29/2022814 Nutrition 3 ............filed at 06/29/2022814 Friction and Shear 3 ............filed at 06/29/2022814 Rex Scale Score 20 ............filed at 06/29/2022814 Neuro Assessment Flowsheet Row Most Recent Value Level of Consciousness Alert, Awake ............filed at 06/29/2022 08 Orientation Oriented X4 (person, place, time, situation) ............filed at 06/29/2022 08 Speech Clear ............filed at 06/29/2022 08 Neuro (WDL) X ............filed at 06/22/2022 08 Other Neuro Symptoms Fatigue ............filed at 06/27/20221999 Motor Function/Sensation Assessment Motor response ............filed at 06/22/2022 08 Respiratory Assessment Flowsheet Row Most Recent Value Respiratory (WDL) X .............filed at 06/22/2022 08 Bilateral Breath Sounds (All Lobes) Diminished .............filed at 06/27/20221999 R Breath Sounds Diminished .............filed at 06/27/20221999 L Breath Sounds Diminished .............filed at 06/27/20221999 Respiratory Pattern Normal .............filed at 06/29/2022 0815 Chest Assessment Symmetrical .............filed at 06/27/20221999 Cough Absent .............filed at 06/24/2022 0400 NPPV Patient Yes .............filed at 06/27/20221999 Respiratory Effort Unlabored .............filed at 06/27/20221999 Respiratory Depth/Rhythm Regular .............filed at 06/27/20221999 Peripheral Vascular Assess Flowsheet Row Most Recent Value Peripheral Vascular (WDL) WDL .............filed at 06/29/2022 0815 R Radial Pulse +2 .............filed at 06/27/20221999 L Radial Pulse +2 .............filed at 06/27/20221999 Capillary Refill Less than/equal to 3 seconds (All extremities) .............filed at 06/29/2022814 Pulses R pedal, L pedal .............filed at 06/29/2022814 Cyanosis None .............filed at 06/29/2022814 All Pulses Palpable .............filed at 06/29/2022814 R Posterior Tibial Pulse +1 .............filed at 06/27/20221999 R Pedal Pulse +2 .............filed at 06/29/2022814 L Posterior Tibial Pulse +1 .............filed at 06/27/20221999 L Pedal Pulse +2 .............filed at 06/29/2022814 [...] 06/24/2022807 Urine Color Bambi, Brown ............filed at 06/27/2022744 Urine Appearance Clear ............filed at 06/27/2022744 Urine [...] ............filed at 06/29/2022814 Gait/Transferring 0 ............filed at 06/29/2022814 Mental Status 0 ............filed at 06/29/2022814 Torres [...] 06/23/2022129 Throat Intact ............filed at 06/23/2022129 Tongue [place], Moist ............filed at 06/23/2022129 Voice Deep ............filed at 06/22/2022 08 Mucous Membrane(s) Moist, [place] ............filed at 06/22/2022 08 Teeth and Gums Intact ............filed at 06/23/2022129 Head and Face Symmetrical ............filed at 06/23/2022129 Neck Symmetrical ............filed at 06/23/2022129 Lips Symmetrical ............filed at 06/23/2022129 Cardiac Assess Flowsheet Row Most Recent Value Ectopy Premature ventricular contractions ............filed at 06/24/2022 0808 Ectopy Frequency Rare ............filed at 06/24/2022 0808 Cardiac Regularity Regular ............filed at 06/22/2022 0800 Heart Block Type 1st degree AVB ............filed at 06/26/2022 1600 Cardiac (WDL) X ............filed at 06/22/2022 0800 Heart Sounds S1, S2 ............filed at 06/27/20221999 [...] Assessments Assessments Row Name 06/29/22 0815 06/28/22 0906/27/221999 Wound Status Evolving Evolving Evolving Site Assessment -- -- Fragile;Painful Closure -- -- Open to air Lab Micro Path Results - last 72 hours COVID-19 Coronavirus RNA Nasopharyngeal [[id number]] Resulted: 06/28/22 1703, Result status: Final result Ordering provider: Frank Bowers MD 06/28/22 1517 Resulting lab: [facility] Narrative: Is the patient experiencing any symptoms consistent with COVID (eg. Fever, cough, shortness of breath)?->No What is the reason for testing?->Placement in post-acute care setting (Rapid) Interpretive data: Synonyms for this test include: PCR and NAAT . This test is performed using the [employer] Xpert Xpress plus assay. This is a [...] . This test is performed using the [employer] Xpert Xpress plus assay. This is a [...] COVID-19 RNA Negative Negative -- -- eGFR [[id number]] (Abnormal) Resulted: 06/27/22457, Result status: Final result Ordering provider: Carey East MD 06/27/22350 Resulting lab: [facility] Specimen Information Type Source Collected On Blood -- 06/27/22350 Components Component Value Reference Range Flag Lab eGFR 6 90 - 130 mL/min/1.73 m2 L Low -- Basic metabolic panel [[id number]] (Abnormal) Resulted: 06/27/22457, Result status: Final result Ordering provider: Carey East MD 06/26/22 1800 Resulting lab: [facility] Specimen Information Type Source Collected On Blood [...] mg/dL L Low -- CBC without differential [[id number]] (Abnormal) Resulted: 06/27/22434, Result status: Final result Ordering provider: Carey East MD 06/26/22 1800 Resulting lab: [facility] Specimen Information Type Source Collected On Blood [...] results found ECG/EMG Results ECG 12 lead [[id number]] Resulted: 06/23/22 1628, Result status: Final result Ordering provider: Carey East MD 06/23/22 1330 Resulted by: Hudson Sal Jr., MD PhD Accession number: [id number] Resulting lab: [facility] Infinit Components Component Value Reference Range Flag Lab Ventricular Rate EKG/Min 100 BPM -- -- Atrial Rate 100 BPM -- -- AR-Interval (MSEC) 182 ms -- -- QRS-Interval (MSEC) 106 ms -- -- QT-Interval (MSEC) 380 ms -- -- QTc 490 ms -- -- R [place] -47 degrees -- -- T [place] 105 degrees -- -- Diagnosis -- -- [...] on 06/23/2022 4:28:23 PM ECG 12 lead [[id number]] Resulted: 06/23/22 1444, Result status: Preliminary result Ordering provider: Carey East MD 06/23/22 1330 Resulted by: Hudson Sal Jr., MD PhD Accession number: [id number] Resulting lab: [facility] Apprity Component Value Reference Range Flag Lab Ventricular Rate EKG/Min 100 BPM -- -- Atrial Rate 100 BPM -- -- AR-Interval (MSEC) 182 ms -- -- QRS-Interval (MSEC) 106 ms -- -- QT-Interval (MSEC) 380 ms -- -- QTc 490 ms -- -- R [place] -47 degrees -- -- T [place] 105 degrees -- -- Diagnosis -- -- [...] depressed in Lateral leads ECG 12 lead [[id number]] Resulted: 06/22/22 1055, Result status: Final result Ordering provider: Fernando Torres MD 06/19/22 1255 Resulted by: Hudson Sal Jr., MD PhD Accession number: [id number] Resulting lab: [facility] Apprity Component Value Reference Range Flag Lab Ventricular Rate EKG/Min 126 BPM -- -- Atrial Rate 63 BPM -- -- QRS-Interval (MSEC) 106 ms -- -- QT-Interval (MSEC) 360 ms -- -- QTc 521 ms -- -- R [place] -53 degrees -- -- T [place] 125 degrees -- -- Diagnosis -- -- [...] on 06/22/2022 10:55:43 AM ECG 12 lead [[id number]] Resulted: 06/21/22 1328, Result status: Final result Ordering provider: Fernando Torres MD 06/18/22 1831 Resulted by: Kenn Billingsley MD Accession number: [id number] Resulting lab: [facility] Apprity Component Value Reference Range Flag Lab Ventricular Rate EKG/Min 133 BPM -- -- Atrial Rate 147 BPM -- -- QRS-Interval (MSEC) 102 ms -- -- QT-Interval (MSEC) 332 ms -- -- QTc 494 ms -- -- R [place] -43 degrees -- -- T [place] 123 degrees -- -- Diagnosis -- -- [...] on 06/21/2022 1:28:53 PM ECG 12 lead [[id number]] Resulted: 06/08/22 0942, Result status: Final result Ordering provider: Jeffrey Green MD 06/07/22 1647 Resulted by: Jess Bustos MD Accession number: [id number] Resulting lab: [facility] Apprity Component Value Reference Range Flag Lab Ventricular Rate EKG/Min 51 BPM -- -- Atrial Rate 51 BPM -- -- AR-Interval (MSEC) 212 ms -- -- QRS-Interval (MSEC) 130 ms -- -- QT-Interval (MSEC) 580 ms -- -- QTc 534 ms -- -- P [place] 69 degrees -- -- R [place] -38 degrees -- -- T [place] 95 degrees -- -- Diagnosis -- -- [...] on 06/08/2022 9:42:26 AM ECG 12 lead [[id number]] Resulted: 06/07/22 0830, Result status: Final result Ordering provider: Toyin Alberto MD 06/05/221447 Resulted by: Jess Bustos MD Accession number: [id number] Resulting lab: [facility] Apprity Component Value Reference Range Flag Lab Ventricular Rate EKG/Min 73 BPM -- -- Atrial Rate 73 BPM -- -- AR-Interval (MSEC) 184 ms -- -- QRS-Interval (MSEC) 106 ms -- -- QT-Interval (MSEC) 442 ms -- -- QTc 486 ms -- -- P Elburn 49 degrees -- -- R Elburn -33 degrees -- -- T Elburn 87 degrees -- -- Diagnosis -- -- -- -- Result: Normal sinus rhythm Left axis deviation QS in V1 and V2, a nonspecific finding with multiple causes, including lead misplacement or septal infarction in 20% Abnormal ECG Confirmed by JESS BUSTOS M.D ([id number]) on 06/07/2022 8:30:06 AM ECG 12 lead [[id number]] Resulted: 06/07/22 06, Result status: Preliminary result Ordering provider: Toyin Alberto MD 06/05/221447 Resulted by: Jess Bustos MD Accession number: [id number] Resulting lab: [facility] Apprity Component Value Reference Range Flag Lab Ventricular Rate EKG/Min 73 BPM -- -- Atrial Rate 73 BPM -- -- AR-Interval (MSEC) 184 ms -- -- QRS-Interval (MSEC) 106 ms -- -- QT-Interval (MSEC) 442 ms -- -- QTc 486 ms -- -- P Elburn 49 degrees -- -- R Elburn -33 degrees -- -- T Elburn 87 degrees -- -- Diagnosis -- -- -- -- Result: Normal sinus rhythm Possible Left atrial enlargement Left axis deviation Septal infarct , age undetermined Abnormal ECG ECG 12 lead [[id number]] Resulted: 06/06/222156, Result status: Final result Ordering provider: Russ Milner MD 06/04/222154 Resulted by: Kenn Billingsley MD Accession number: [id number] Resulting lab: [facility] Apprity Component Value Reference Range Flag Lab Ventricular Rate EKG/Min 47 BPM -- -- Atrial Rate 47 BPM -- -- AR-Interval (MSEC) 228 ms -- -- QRS-Interval (MSEC) 116 ms -- -- QT-Interval (MSEC) 532 ms -- -- QTc 470 ms -- -- P Elburn 39 degrees -- -- R Elburn -33 degrees -- -- T Elburn 105 degrees -- -- Diagnosis -- -- -- -- Result: Sinus bradycardia with 1st degree A-V block Left axis deviation Incomplete left bundle branch block Nonspecific ST and T wave abnormality Long QTc When compared with ECG of 23-MAR-2017 00:14, AR interval has increased QTc has increased Rate has decreased by 15 bpm Incomplete left bundle branch block is now Present Criteria for Septal infarct are not Present Confirmed by KENN BILLINGSLEY M.D ([id number]) on 06/06/2022 9:57:10 PM ECG 12 lead [[id number]] Resulted: 06/06/22943, Result status: Preliminary result Ordering provider: Russ Milner MD 06/04/222154 Resulted by: Kenn Billingsley MD Accession number: [id number] Resulting lab: [facility] Apprity Component Value Reference Range Flag Lab Ventricular Rate EKG/Min 47 BPM -- -- Atrial Rate 47 BPM -- -- AR-Interval (MSEC) 228 ms -- -- QRS-Interval (MSEC) 116 ms -- -- QT-Interval (MSEC) 532 ms -- -- QTc 470 ms -- -- P Elburn 39 degrees -- -- R Elburn -33 degrees -- -- T Elburn 105 degrees -- -- Diagnosis -- -- -- -- Result: Sinus bradycardia with 1st degree A-V block Left axis deviation Incomplete left bundle branch block Abnormal QRS-T angle, consider primary T wave abnormality Abnormal ECG When compared with ECG of 23-MAR-2017 00:14, AR interval has increased Incomplete left bundle branch block is now Present Criteria for Septal infarct are no longer Present ECG 12 lead [[id number]] Resulted: 06/06/2232, Result status: Preliminary result Ordering provider: Toyin Alberto MD 06/05/22 1448 Resulted by: Jess Bustos MD Accession number: [id number] Resulting lab: [facility] [employer] Component Value Reference Range Flag Lab Ventricular Rate EKG/Min 73 BPM -- -- Atrial Rate 73 BPM -- -- AR-Interval (MSEC) 184 ms -- -- QRS-Interval (MSEC) 106 ms -- -- QT-Interval (MSEC) 442 ms -- -- QTc 486 ms -- -- P Elburn 49 degrees -- -- R Elburn -33 degrees -- -- T Elburn 87 degrees -- -- Diagnosis -- -- -- -- Result: Normal sinus rhythm Possible Left atrial enlargement Left axis deviation Septal infarct , age undetermined Abnormal ECG ECG 12 lead [[id number]] Resulted: 06/06/22 0909, Result status: Preliminary result Ordering provider: Russ Milner MD 06/04/222154 Resulted by: Kenn Billingsley MD Accession number: [id number] Resulting lab: [facility] [employer] Component Value Reference Range Flag Lab Ventricular Rate EKG/Min 47 BPM -- -- Atrial Rate 47 BPM -- -- AR-Interval (MSEC) 228 ms -- -- QRS-Interval (MSEC) 116 ms -- -- QT-Interval (MSEC) 532 ms -- -- QTc 470 ms -- -- P Elburn 39 degrees -- -- R Elburn -33 degrees -- -- T Elburn 105 degrees -- -- Diagnosis -- -- -- -- Result: Sinus bradycardia with 1st degree A-V block Left axis deviation Incomplete left bundle branch block Abnormal QRS-T angle, consider primary T wave abnormality Abnormal ECG When compared with ECG of 23-MAR-2017 00:14, AR interval has increased Incomplete left bundle branch block is now Present Criteria for Septal infarct are no longer Present Testing Performed By Lab - Abbreviation Name Director Address Valid Date Range 24 - [facility] Unknown 03/28/170 - Present Progress Notes - Encounter Notes Notes from 06/27/22 through 06/29/22 Progress Notes by So Lawrence OT at 06/27/2022 9:37 AM Version 1 of 1 Author: Debeer, So M., OT Specialty: Occupational Therapy Author Type: Occupational Therapist Filed: 06/27/2022 11:01 AM Date of Service: 06/27/2022 9:37 AM Status: Signed Wine Sales Representative: So Lawrence OT (Occupational Therapist) Occupational Therapy [...] not assigned to this patient, please call [phone]. 06/27/22 0937 General Session Type Treatment OT [...] of Service: 06/27/2022 4:57 PM Status: Signed Wine Sales Representative: Carey East MD (Physician) Daily Progress Note Division of Hospital Medicine Name: Adelia Garvin Jr. Today: June 27, 2022 : 1970 Age: 51 y.o. male Admit: 06/04/2022 Bed: [id number] Subjective Chief complaint: CAD s/p PCI, T1DM, [...] 06/27/2022 0745 Gross per 24 hour Intake 02926 ml Output 59218 ml Net -1949 ml Physical Exam Constitutional: [...] transferred to the floor, improving. Atrial fibrillation ([facility]) ([facility]) Assessment & Plan Converted to NSR overnight on 06/24. CHADsVASc of 4 not on anticoagulation prior to admission. - cardiology consulted - recommended ongoing rate control - holding off on a/c with high risk for bleeding while on DAPT - reduced metop to 25mg BID in the setting of hypotension, HR 70s NSR Acute on chronic HFrEF (heart failure with reduced ejection fraction) ([facility]) Assessment & Plan C/b cardiogenic shock requiring impella in the setting of cath and AHRF 2/2 pulmonary edema, now resolved. TTE demonstrating recovered EF 65% with grade I diastolic dysfunction. - metop as above - continue low dose losartan 12.5mg daily, ok per nephro - volume management per PD ESRD (end stage renal disease) ([facility]) ([facility]) Assessment & Plan - Renal consulted, s/p CRRT in the ICU now back on PD. - Continue vitamins for renal bone mineral disease - continue phoslo Type 1 diabetes mellitus ([facility]) Assessment & Plan A1c well controlled on [...] PD * NSTEMI (non-ST elevated myocardial infarction) ([facility]) ([facility]) Assessment & Plan With recurrent chest pain [...] of Service: 06/27/2022 3:50 PM Status: Signed Wine Sales Representative: Arleen Andre MD (Physician) ASSESSMENT AND RECOMMENDATIONS ESRD: He is doing well on the current PD regimen. Ultrafilters approximately 1052-3935 ml/day. Continue current regimen Hypokalemia: Start Kcl [...] Type: Continuous Cycling Peritoneal Dialysis Machine Type: [place] [employer] Pro Dianeal Solution: Dextrose 2.5% in 5000 mL (+ 7.5% last fill) Dwell Time (min): 77 min Drain Time (min): 39 min Initial Drain Volume (mL): 690 mL Last Fill Volume (mL): 785 mL Fill Volume In (mL): 69653 mL Effluent Volume Out (mL): 80069 ml Balance This Exchange (mL): 1944 mL [...] Weight: Height: PD CATHETER: PD Catheter Site: [facility] PD Site Assessment: other findings scaly skin around the site Other findings: pleasant, conversing appropriately. Mild peripheral edema I/O last 2 completed shifts: In: 20278 [P.O.:440; Other:01428] Out: 53087 [Urine:300; Other:85342] I have reviewed current medications and the [...] 0436 06/23/22 1435 06/23/22 1401 06/23/22 0421 06/22/228 06/22/22 1521 06/21/22 2155 06/21/22 0838 SODIUM [...] FERRITIN 2,062 (H) 06/07/2022 Arleen Andre MD car sales associate Division of Nephrology Progress Notes by Frank Bowers MD at 06/28/2022 3:30 PM Version 1 of Author: Frank Bowers MD Specialty: Internal Medicine Author Type: Physician Filed: 06/28/2022 3:30 PM Date of Service: 06/28/2022 3:30 PM Status: Signed Wine Sales Representative: Frank Bowers MD (Physician) Daily Progress Note Division of Hospital Medicine Name: Adelia Garvin Jr. Today: June 28, 2022 : 1970 Age: 51 y.o. male Admit: 06/04/2022 Bed: [id number] Subjective Chief complaint: NSTEMI Interval History: Pt [...] 06/28/2022 1300 Gross per 24 hour Intake 04332 ml Output 95500 ml Net -851 ml Physical Exam Constitutional: [...] by: Félix Chahal M.D. Assessment/Plan Cardiogenic shock (HCC) Assessment & Plan Secondary to NSTEMI, s/p Impella since removed on 06/10. Resolved. * NSTEMI (non-ST elevated myocardial infarction) (CMS/HCC) ([facility]) Assessment & Plan With recurrent chest pain [...] been accepted ESRD (end stage renal disease) ([facility]) ([facility]) Assessment & Plan - Renal consulted, s/p CRRT in the ICU now back on PD. Tolerated well and nephrology following - Trialysis catheter removed - Continue vitamins for renal bone mineral disease. Type 1 diabetes mellitus ([facility]) Assessment & Plan A1c well controlled on [...] increase NPH 45u before PD Atrial fibrillation ([facility]) ([facility]) Assessment & Plan Converted to NSR overnight on 06/24. CHADsVASc of 4 not on anticoagulation prior to admission. - cardiology consulted - recommended ongoing rate control - holding off on a/c with high risk for bleeding while on DAPT - reduced metop to 25mg BID in the setting of hypotension, HR 70s NSR Acute on chronic HFrEF (heart failure with reduced ejection fraction) ([facility]) Assessment & Plan C/b cardiogenic shock requiring [...] and trend Hb. Acute hypoxemic respiratory failure ([facility]) Assessment & Plan Secondary to ACS and flash pulmonary edema, since resolved and extubated on 06/19. Patient passed barium swallow on 06/21. Progress Notes by Frank Bowers MD at 06/29/2022 10:12 AM Version 1 of 1 Author: Frank Bowers MD Specialty: Internal Medicine Author Type: Physician Filed: 06/29/2022 10:12 AM Date of Service: 06/29/2022 10:12 AM Status: Signed Wine Sales Representative: Frank Bowers MD (Physician) Daily Progress Note Division of Hospital Medicine Name: Adelia Garvin Jr. Today: June 29, 2022 : 1970 Age: 51 y.o. male Admit: 06/04/2022 Bed: [id number] Subjective Chief complaint: NSTEMI Interval History: Pt [...] 06/29/2022 0815 Gross per 24 hour Intake 72054 ml Output 33382 ml Net -664 ml Physical Exam Constitutional: [...] Resolved. * NSTEMI (non-ST elevated myocardial infarction) (CMS/[facility]) ([facility]) Assessment & Plan With recurrent chest pain [...] today ESRD (end stage renal disease) (CMS/HCC) ([facility]) Assessment & Plan - Renal consulted, s/p [...] start of peritoneal dialysis session Atrial fibrillation ([facility]) ([facility]) Assessment & Plan Converted to NSR overnight on 06/24. CHADsVASc of 4 not on anticoagulation prior to admission. - cardiology consulted - recommended ongoing rate control - holding off on a/c with high risk for bleeding while on DAPT - reduced metop to 25mg BID in the setting of hypotension, HR 70s NSR Acute on chronic HFrEF (heart failure with reduced ejection fraction) ([facility]) Assessment & Plan C/b cardiogenic shock requiring [...] from 06/27/22 through 06/29/22 Discharge Summary by Frnak Bowers MD at 06/29/2022 10:13 AM Version 1 of 1 Author: Frank Bowers MD Specialty: Internal Medicine Author Type: Physician Filed: 06/29/2022 10:23 AM Date of Service: 06/29/2022 10:13 AM Status: Signed Wine Sales Representative: Frank Bowers MD (Physician) Inpatient Discharge Summary BRIEF OVERVIEW Admitting Provider: Catherine Adams MD Discharge Provider: Frank Bowers MD Primary Care Physician at Discharge: Aditya Castro MD [phone] Admission Date: 06/04/2022 Discharge Date: 06/29/2022 Admission Location: [facility] Problems/Diagnoses: Principal Problem: NSTEMI (non-ST elevated myocardial infarction) ([facility]) ([facility]) Active Problems: Cardiogenic shock ([facility]) Type 1 diabetes mellitus ([facility]) ESRD (end stage renal disease) ([facility]) ([facility] Acute hypoxemic respiratory failure ([facility]) Anemia Acute on chronic HFrEF (heart failure with reduced ejection fraction) ([facility]) Atrial fibrillation ([facility]) ([facility]) Resolved Problems: No resolved hospital problems. DETAILS OF HOSPITAL STAY Presenting Problem/History of Present Illness: As per Admission H&P AC), HTN, CAD s/p stent 04/06 and 3 stent 12/07, T1DM (insulin pump at home), ESRD on PD, HLD, GERD, hyperparathyroidism, DDD, OA, gout, BEN on CPAP initially presented to [facility] for n/v andchest pain, transferred to [facility] for LHC/PCI, now presenting to CCU s/p complex PCI with impella and intubated. At the OSH he presented with 3d generalized weakness, chills, ROONEY, n/v, chest pain relieved by sublingual ntg. His labs were notable for trop 1.0-->1.09-->0.729, BNP 61481. He had a CT CAP showing cholelithiasis [...] circumflex as optimal treatment, prompting transfer to [place]. He arrived at [place] 06/05. EKG showed sinus bradycardia, 1st deg [...] 06/22. * NSTEMI (non-ST elevated myocardial infarction) (CMS/[facility]) ([facility]) With interventions described above. Post-transfer and post-cath, [...] on discharge given pressure tolerance. Atrial fibrillation ([facility]) ([facility]) He was in atrial fibrillation on transfer [...] HFrEF (heart failure with reduced ejection fraction) ([facility]) He developed cardiogenic shock requiring impella in the setting of cath c/b AHRF 2/2 pulmonary edema. Post-cath, TTE demonstrated recovered EF 65% with grade I diastolic dysfunction. Volume was managed with CRRT in ICU, then by resumption of PD on the medical floor. In discussion with nephrology, low dose losartan was started for GDMT in addition to metoprolol. ESRD (end stage renal disease) ([facility]) ([facility]) Renal consulted on admission with history of ESRD on PD. While in ICU, temporary dialysis catheter was placed to facilitate CRRT for volume removal. Upon transfer to the floor, PD was continued and tolerated well. He was continued on his home vitamins for renal bone mineral disease and phoslo. Trialysis removed 06/25. Type 1 diabetes mellitus ([facility]) Prior to admission, his A1c was well [...] REMOVE PERC ARTERIAL VAD (IMPELLA), DIFFERENT SESSION [id number] Other Procedures: Pertinent Test Results: See hospital [...] Influenza, Quadrivalent, Split, Preservative Free, Intramuscular 06/04/22 Partnered (J&J) SARS-CoV-2 Vaccination 11/04/20 Moderna SARS-CoV-2 Vaccination (12+ YRS) 09/21/21 Generated by [id number] at 06/29/22 11:31 AM Page ONAL SECRETARY * Assessment & Plan Note - Frank Bowers MD - 06/29/2022 10:12 AM PERSONAL SECRETARY Associated Problem(s): Atrial fibrillation (CMS/HCC) (HCC) Converted to NSR overnight on 06/24. CHADsVASc of 4 not on anticoagulation prior to admission. - cardiology consulted - recommended ongoing rate control - holding off on a/c with high risk for bleeding while on DAPT - reduced metop to 25mg BID in the setting of hypotension, HR 70s NSR ONAL SECRETARY * Assessment & Plan Note - Frank Bowers MD - 06/29/2022 10:12 AM PERSONAL SECRETARY Associated Problem(s): Acute on chronic HFrEF (heart failure with reduced ejection fraction) (HCC) C/b cardiogenic shock requiring impella in the setting of cath and AHRF 2/2 pulmonary edema, now resolved. TTE demonstrating recovered EF 65% with grade I diastolic dysfunction. - metop as above - continue low dose losartan 12.5mg daily, ok per nephro. Tolerating well - volume management per PD ONAL SECRETARY * Assessment & Plan Note - Frank Bowers MD - 06/29/2022 10:12 AM PERSONAL SECRETARY Associated Problem(s): Anemia Stable, likely 2/2 anemia from ESRD, no evidence of bleeding. Underwent CT c/a/p without internal hematoma. - Monitor and trend Hb. ONAL SECRETARY * Assessment & Plan Note - Frank Bowers MD - 06/29/2022 10:12 AM PERSONAL SECRETARY Associated Problem(s): Acute hypoxemic respiratory failure (HCC) Secondary to ACS and flash pulmonary edema, since resolved and extubated on 06/19. Patient passed barium swallow on 06/21. ONAL SECRETARY * Assessment & Plan Note - Frank Bowers MD - 06/29/2022 10:12 AM PERSONAL SECRETARY Associated Problem(s): ESRD (end stage renal disease) (CMS/HCC) (HCC) - Renal consulted, s/p CRRT in the ICU now back on PD. Tolerated well and nephrology following - Trialysis catheter removed - Continue vitamins for renal bone mineral disease. ONAL SECRETARY * Assessment & Plan Note - Frank Bowers MD - 06/29/2022 10:11 AM PERSONAL SECRETARY Associated Problem(s): Type 1 diabetes mellitus (HCC) [...] units with start of peritoneal dialysis session ONAL SECRETARY * Assessment & Plan Note - Frank Bowers MD - 06/29/2022 10:11 AM PERSONAL SECRETARY Associated Problem(s): Cardiogenic shock (HCC) Secondary to NSTEMI, s/p Impella since removed on 06/10. Resolved. ONAL SECRETARY * Assessment & Plan Note - Frank Bowers MD - 06/29/2022 10:11 AM PERSONAL SECRETARY Associated Problem(s): NSTEMI (non-ST elevated myocardial infarction) [...] Pt overall improving, DC to rehab today ONAL SECRETARY * Subjective & Objective - Frank Bowers MD - 06/29/2022 10:10 AM PERSONAL SECRETARY Daily Progress Note Division of Hospital Medicine Name: Adelia Garvin Jr. Today: June 29, 2022 : 1970 Age: 51 y.o. male Admit: 06/04/2022 Bed: [id number] Subjective Chief complaint: NSTEMI Interval History: Pt [...] 06/29/2022 0815 Gross per 24 hour Intake 56934 ml Output 13955 ml Net -664 ml Physical Exam Constitutional: [...] controlled, some low 200 Negative covid test. ONAL SECRETARY * Plan of Care - [place] [...] to chair, discharge to inpatient rehab today ONAL SECRETARY * Summary of Treatment Recommendations Non-Billable - [...] yearly or sooner as indicated by your medical language specialist Pending results for primary service or primary care physician to follow up on: None at time of discharge Follow Up Plan: Follow up with endocrinology near his home 1-2 weeks after discharge to reassess glycemic management and adjust insulin pump settings as needed. ONAL SECRETARY * Plan of Care - Gucci Macedo RRT - 06/29/2022 1:28 AM CST BEN Continue on NPPV ONAL SECRETARY * Consults, Subsequent - James Horvath MD - 06/28/2022 5:36 PM PERSONAL SECRETARY NEPHROLOGY CONSULT SUBSEQUENT VISIT INTERVAL HISTORY: NAEO. [...] or bruises Date 06/27/22699 - 06/28/2265806/28/22699 - 06/29/22 0659 Shift 6436-7859 7223-6700 24 Hour Total 1899-0659 24 Hour Total INTAKE P.O. 400 400 Other 91379 75006 Shift Total(mL/kg) 69364(101.4) 96163(101.4) 400(3.3) 400(3.3) OUTPUT Urine(mL/kg/hr) 200(0.1) 200(0.1) 150 150 Other 00882 78820 Shift Total(mL/kg) 200(1.7) 24899(110.5) 77946(112.2) 150(1.2) 150(1.2) NET -200 -1101 -1301 250 [...] Fellow PGY-4 Consult 1 Service Contact (phone): [phone] After hours and weekends: please page [phone] Cosigned by Arleen Andre MD at 06/28/2022 8:35 PM PERSONAL SECRETARY ONAL SECRETARY ONAL SECRETARY Associated attestation - Arleen Andre MD - 06/28/2022 8:35 PM PERSONAL SECRETARY I saw and examined the patient on 06/28/2022. I have discussed the patient's management with the nephrology fellow/resident. I agree with the findings, assessment and plan of care as documented in thefellow's/resident's note. Additional history, findings, assessment and recommendations, if any, are outlined below. Arleen Andre MD car sales associate Division of Nephrology * Subjective & Objective - Frank Bowers MD - 06/28/2022 3:21 PM PERSONAL SECRETARY Daily Progress Note Division of Hospital Medicine Name: Adelia Garvin Jr. Today: June 28, 2022 : 1970 Age: 51 y.o. male Admit: 06/04/2022 Bed: [id number] Subjective Chief complaint: NSTEMI Interval History: Pt [...] 06/28/2022 1300 Gross per 24 hour Intake 15700 ml Output 16778 ml Net -851 ml Physical Exam Constitutional: [...] this written report and agrees with it. ONAL SECRETARY * Plan of Care - Elsie Gonzalez RN - 06/28/2022 3:16 PM CST [employer] noted patient has been recommended for inpatient rehab by PT/OT. software program manager met withthe patient at bedside to discuss recommendations by therapy and to work on a potential discharge disposition plan. [employer] provided education to patient on inpt rehab facilities and the rehabilitation process.Patient reported he was interested in short term inpatient rehab. software program manager explained to the patient the choices were limited due to his PD. Per patient request, CM sent referrals to inpatient rehab facilities near [facility] in [place] unable to accept PD at this time. CM sent referrals to [facility]. [facility] is able to accept PD patient and they have beds available tomorrow. Per patient choice will transfer to [facility] tomorrow. [facility] intake coord and care team notified of patient choice. ONAL SECRETARY * Consults, Subsequent - Dora Delarosa NP - 06/28/2022 1:30 PM CST Endocrinology & Diabetes Progress Note Patient: Adelia Garvin Jr., 51 y.o. male (: 1970) Room: [place] [address]/[place] [address] ( ) LOS: 24 Adelia Garvin Jr. [...] agitation. 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, with terminal carman use of insulin, complicated by ESRD on PD, CAD s/p PCI, CHF - HbA1c 7.4% - Uses Omnipod and Dexcom G6 at home, not currently on this- doesn't have the supplies -On significantly higher basal rates on pump at night due to peritoneal dialysis -home settings: Basal rate 0330 >>1.7 0800 >> 0.8 2000 >> 5.8 ICR1:6.5 ISF1:25 [id number] TIA 4 Over the previous 24 hours, [...] recommend decreasing the basal insulin dose from 7645-5945 today. We will continue to intensely monitor [...] ## Discharge Planning - Follow-up with home sourcing analyst -- Dora Delarosa NP Endocrinology, Metabolism, & Lipid Research Contact Info: New Consults: [phone]) General Endocrine (Non-Diabetes): [phone] (Check 'Treatment Team' assignment for Diabetes 1 vs 2 vs 3) Diabetes 1: Diabetes Fellow: [phone] Diabetes 2: Dora Delarosa NP: [phone] Diabetes 3: See Treatment Team Provider (or call Dora Delarosa, above) Diabetes After-Hours & Weekends: Diabetes Fellow ONAL SECRETARY * Plan of Care - Elsie Gonzalez RN - 06/28/2022 1:24 PM CST CM sent 5 more referrals in [facility] for inpt rehab- awaiting response from facility that can accept PD patients ONAL SECRETARY * Plan of Care - [place] [...] up to chair, monitor tele and vitals ONAL SECRETARY * Plan of Care - Sasha Leonard [...] on-going diet recs, safe swallow strategies, and OFFICE CLERK ROUTINE POC, they verbalized understanding and agreement. ST to s/o. ONAL SECRETARY * Hospital Course - Carey East MD - 06/27/2022 9:31 PM PERSONAL SECRETARY Adelia Garvin Jr. is 51 y.o. male [...] 06/22. * NSTEMI (non-ST elevated myocardial infarction) ([facility]) ([facility]) With interventions described above. Post-transfer and post-cath, [...] DAPT and atorvastatin as well. Atrial fibrillation ([facility]) ([facility]) He was in atrial fibrillation on transfer [...] HFrEF (heart failure with reduced ejection fraction) ([facility]) He developed cardiogenic shock requiring impella in the setting of cath c/b AHRF 2/2 pulmonary edema. Post-cath, TTE demonstrated recovered EF 65% with grade I diastolic dysfunction. Volume was managed with CRRT in ICU, then by resumption of PD on the medical floor. In discussion with nephrology, low dose losartan was started for GDMT in addition to metoprolol. ESRD (end stage renal disease) ([facility]) ([facility]) Renal consulted on admission with history of ESRD on PD. While in ICU, temporary dialysis catheter was placed to facilitate CRRT for volume removal. Upon transfer to the floor, PD was continued and tolerated well. He was continued on his home vitamins for renal bone mineral disease and phoslo. Trialysis removed 06/25. Type 1 diabetes mellitus ([facility]) Prior to admission, his A1c was well [...] barium swallow on 06/21. Remained on RA. ONAL SECRETARY ONAL SECRETARY * ECIN Note - Elsie Gonzalez RN [...] Principal Problem: NSTEMI (non-ST elevated myocardial infarction) (CMS/HCC) (HCC) [I21.4] Elopement Risk Date/Time Risk/Reason for Elopement User 06/04/22 2300 No risk HCE 06/04/22 2100 No risk IRP Intake/Output 06/24/22 0700 - 06/25/22 0659 06/25/22 0700 - 06/26/22 0659 06/26/22 0700 - 06/27/22 0659 06/27/22 0700 - 06/28/22 0659 Total Total 9672-0988 7370-2488 9805-0959 Total 3184-6618 4503-3254 9961-2911 Total Intake (ml) 56755 94911 340 100 94200 47019 -- -- -- -- Output (ml) 18041 13178 300 -- 95127 53239 200 -- -- 200 Net (ml) -2404 [...] History of Falling 0 ............filed at 06/27/2022 08 Secondary Diagnosis 15 ............filed at 06/27/2022829 Ambulatory Aids 15 ............filed at 06/27/2022 08 Intravenous Therapy/Heparin/Saline Lock 20 ............filed at 06/27/2022829 Gait/Transferring 10 ............filed at 06/27/2022 08 Mental Status 0 ............filed at 06/27/2022829 Torres Fall Risk Score 60 ............filed at 06/27/2022829 Vital Signs 06/26 0659 06/27 1326 Most Recent Temp (??C) 36.9 - [...] Activity 06/26 2030 Resting in bed 06/26 1420 Resting in bed 06/26 725 Resting in [...] 2030 Self regulated 06/25 2000 Self regulated 06/24 1930 Self regulated Heels/Feet 06/25 2000 Heels [...] Hematoma in the IJ Assessments Row Name 06/26/22202906/26/22 0725 06/25/221999 Wound Status -- Evolving -- Site Assessment -- Clean;Dry;Intact -- Dressing -- Dry dressing -- Wound 06/13/22 Rash Anterior;Right Thigh Date First Assessed 06/13/22 Site Thigh Time First Assessed 0127 Days 14 Wound Type: Rash Location Orientation: Anterior;Right Assessments Row Name 06/26/22202906/26/2225 06/25/221999 Wound Status -- Evolving -- Site [...] -- SpO2 -- 92 % 96 % ONAL SECRETARY * Consults, Subsequent - Dora Delarosa NP - 06/27/2022 1:13 PM CST Endocrinology & Diabetes Progress Note Patient: Adelia Garvin Jr., 51 y.o. male (: 1970) Room: [place] [address] ( ) LOS: 23 Adelia Garvin Jr. [...] labs, imaging, and diagnostics independently reviewed in [facility] and commented on below. Lab Results Component [...] agitation. 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, with terminal carman use of insulin, complicated by ESRD on PD, CAD s/p PCI, CHF - HbA1c 7.4% - Uses Omnipod and Dexcom G6 at home, not currently on this- doesn't have the supplies -On significantly higher basal rates on pump at night due to peritoneal dialysis -home settings: Basal rate 0330 >>1.7 0800 >> 0.8 2000 >> 5.8 ICR1:6.5 ISF1:25 [id number] TIA 4 Over the previous 24 hours, [...] ## Discharge Planning - Follow-up with home sourcing analyst -- Dora Delarosa NP Endocrinology, Metabolism, & Lipid Research Contact Info: New Consults: [phone]) General Endocrine (Non-Diabetes): [phone] (Check 'Treatment Team' assignment for Diabetes 1 vs 2 vs 3) Diabetes 1: Diabetes Fellow: [phone] Diabetes 2: Dora Delarosa NP: [phone] Diabetes 3: See Treatment Team Provider (or call Dora Delarosa, above) Diabetes After-Hours & Weekends: Diabetes Fellow ONAL SECRETARY * Plan of Care - Adelita Self RN - 06/26/2022 3:00 PM CST Problem: Lack of Knowledge: Goal: Knowledge of disease or condition will improve Outcome: Progressing Goals: Clinical Goals for the Shift: up to chair Summary: Up to chair for about 2 hours. ONAL SECRETARY * Plan of Care - Gucci Macedo, BARREL PAINTER - 06/26/2022 1:28 AM CDT BEN Continue [...] rash or bruises Date 06/24/22 07 - 06/25/22 0659 06/25/22 07 - 06/26/22 0659 Shift 4158-3709 4228-9531 24 Hour Total 4370-0642 0048-0997 24 Hour Total INTAKE Other 29480 39104 Shift Total(mL/kg) 49450(101.9) 75913(101.9) OUTPUT Other 31305 50238 Shift Total(mL/kg) 50415(122) 56305(122) NET -2404 -2404 Weight (kg) 119 119.7 119.7 119.7 119.7 119.7 LABORATORY DATA: Recent Labs Lab Units 06/24/22 0410 06/23/22 1434 06/23/22 1401 WBC K/cumm 4.3 5.4 5.9 HEMOGLOBIN g/dL 7.9* 8.2* 4.6* PLATELETS K/cumm 206 215 253 Recent Labs Lab Units 06/25/22 0436 06/24/22 0410 06/23/22 1435 06/23/22 1401 06/23/22 0421 06/22/228 06/22/22 1521 06/21/22 2155 06/21/22 0838 06/19/22 [...] Fellow PGY-4 Consult 1 Service Contact (phone): [phone] After hours and weekends: please page [phone] Cosigned by Miriam Driver MD at 06/28/2022 8:11 AM PERSONAL SECRETARY ONAL SECRETARY Associated attestation - Miriam Driver MD - 06/28/2022 8:11 AM PERSONAL SECRETARY I have seen and examined the patient on 06/25/22. I agree with the findings and plan of care as documented in the nephrology fellow's note. Miriam Driver MD Drywall Stripper Division of Nephrology * Plan of Care - Adelita Self RN - 06/25/2022 10:00 AM CDT Problem: Health Behavior: Goal: Understanding of discharge needs will improve Outcome: Progressing Goals: Clinical Goals for the Shift: up to chair Summary: Up to chair for short period this am. * Plan of Care - Wandy Garay, BARREL PAINTER - 06/25/2022 4:45 AM CDT NPPV Situation: [...] edema. Skin: No rash or bruises Date 06/23/22699 - 06/24/22 0659 06/24/22 07 - 06/25/22 0659 Shift 5135-5049 9010-5848 24 Hour Total 2382-3136 0478-5180 24 Hour Total INTAKE Other 56652 77790 IV Piggyback 250 250 Shift Total(mL/kg) 250(2.1) 93740(101.5) 78395(103.6) OUTPUT Urine(mL/kg/hr) 250(0.2) 250(0.1) Emesis/NG output 0 0 Other 52904 15576 Stool 0 0 Shift Total(mL/kg) 29547(106.5) 09233(106.5) NET 250 -765 -815 Weight (kg) 119.9 119.9 119.9 119 119 119 LABORATORY DATA: Recent Labs Lab Units 06/24/22 0410 06/23/22 1434 06/23/22 1401 WBC K/cumm 4.3 5.4 5.9 HEMOGLOBIN g/dL 7.9* 8.2* 4.6* PLATELETS K/cumm 206 215 253 Recent Labs Lab Units 06/24/22 0410 06/23/22 1435 06/23/22 1401 06/23/22 0421 06/22/228 [...] Fellow PGY-4 Consult 1 Service Contact (phone): [phone] After hours and weekends: please page [phone] Cosigned by Miriam Driver MD at 06/24/2022 8:25 PM CDT Associated attestation - Miriam Driver MD - 06/24/2022 8:25 PM CDT I have seen and examined the patient on 06/24/22. I agree with the findings and plan of care as documented in the nephrology fellow's note. Agree with endocrinology. Continue PD settings. Miriam Driver MD Drywall Stripper Division of Nephrology * Plan of Care [...] hygiene prior to po Specialty Instructions/Modifications: alert OFFICE CLERK ROUTINE if pt coughing with meals OFFICE CLERK ROUTINE noted pt was advanced to regular diet [...] updated diet recs, safe swallow strategies, and OFFICE CLERK ROUTINE POC, they verbalized understanding and agreement. ST will briefly continue to follow. * Consults, Subsequent - Dora Delarosa, PRODUCT MANAGEMENT SPECIALIST - 06/24/2022 12:29 PM CDT Endocrinology & Diabetes Progress Note Patient: Adelia Garvin Jr., 51 y.o. male (: 1970) Room: [place] [address]/[id number] ( ) LOS: 20 Adelia Garvin Jr. [...] agitation. 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, with terminal carman use of insulin, complicated by ESRD on PD, CAD s/p PCI, CHF - HbA1c 7.4% - Uses Omnipod and Dexcom G6 at home, not currently on this- doesn't have the supplies -On significantly higher basal rates on pump at night due to peritoneal dialysis -home settings: Basal rate 0330 >>1.7 0800 >> 0.8 2000 >> 5.8 ICR1:6.5 ISF1:25 [id number] TIA 4 Over the previous 24 hours, [...] ## Discharge Planning - Follow-up with home sourcing analyst -- Dora Delarosa NP Endocrinology, Metabolism, & Lipid Research Contact Info: New Consults: [phone]) General Endocrine (Non-Diabetes): [phone] (Check 'Treatment Team' assignment for Diabetes 1 vs 2 vs 3) Diabetes 1: Diabetes Fellow: [phone] Diabetes 2: Dora Delarosa PRODUCT MANAGEMENT SPECIALIST: [phone] Diabetes 3: See Treatment Team Provider (or [...] assistance, please check the treatment team in [facility] for the assigned case therapist or contact the weekend Case Management phone [...] 06/24/2022 0536 Gross per 24 hour Intake 01819 ml Output 93691 ml Net -347 ml Physical Exam: General: [...] ESRD on PD who was transferred to [facility] for an impella-supported complex PCI on 06/07/22 [...] us if questions arise. Will Villavicencio MD Machine Package Sealer 11:36 AM 06/24/22 Cosigned by Musa Fernando MD at 06/25/2022 9:04 PM CDT Associated attestation - Musa Fernando MD - 06/25/2022 9:04 PM CDT 06/24/2022 I have personally seen and examined this pt with resident/Fellow/PRODUCT MANAGEMENT SPECIALIST . I have reviewed History/Physical exam and plan for management. I agree with it . Musa Fernando M.D., Gerry. software development coordinator [facility] [employer] [facility]. [place] This note contains information and findings [...] about verbage above please contact me at [phone]. . * Plan of Care - [place] [...] 06/23/22 0606/23/22 07 - 06/24/22 0659 Shift 6641-1978 24 Hour Total 4519-3136 8012-6780 24 Hour Total INTAKE Other 61590 87158 IV Piggyback 250 250 Shift Total(mL/kg) 59327(101.2) 87905(101.2) 250(2.1) 250(2.1) OUTPUT Urine(mL/kg/hr) 450 450 Other 38074 66316 Shift Total(mL/kg) 88182(122.6) 80775(122.6) [facility] -2572 -2572 250 250 Weight (kg) 120.5 120.5 119.9 [...] Fellow PGY-4 Consult 1 Service Contact (phone): [phone] After hours and weekends: please page [phone] Cosigned by Miriam Driver MD at 06/23/2022 8:48 PM CDT Associated attestation - Miriam Driver MD - 06/23/2022 8:48 PM CDT I have seen and examined the patient on 06/23/22. I agree with the findings and plan of care as documented in the nephrology fellow's note. Miriam Driver MD Drywall Stripper Division of Nephrology * Assessment & Plan [...] dc tomorrow as pt has been accepted ONAL SECRETARY ONAL SECRETARY * Assessment & Plan Note - Frank Bowers MD - 06/23/2022 4:52 PM CDT Associated Problem(s): Atrial fibrillation (CMS/HCC) (HCC) Converted to NSR overnight on 06/24. CHADsVASc of 4 not on anticoagulation prior to admission. - cardiology consulted - recommended ongoing rate control - holding off on a/c with high risk for bleeding while on DAPT - reduced metop to 25mg BID in the setting of hypotension, HR 70s NSR ONAL SECRETARY * Assessment & Plan Note - Frank Bowers MD - 06/23/2022 4:47 PM CDT Associated Problem(s): Acute on chronic HFrEF (heart failure with reduced ejection fraction) ([facility]) C/b cardiogenic shock requiring impella in the setting of cath and AHRF 2/2 pulmonary edema, now resolved. TTE demonstrating recovered EF 65% with grade I diastolic dysfunction. - metop as above - continue low dose losartan 12.5mg daily, ok per nephro. Tolerating well - volume management per PD ONAL SECRETARY * Assessment & Plan Note - Frank Bowers MD - 06/23/2022 4:47 PM CDT Associated Problem(s): ESRD (end stage renal disease) ([facility]) ([facility]) - Renal consulted, s/p CRRT in the ICU now back on PD. Tolerated well and nephrology following - Trialysis catheter removed - Continue vitamins for renal bone mineral disease. ONAL SECRETARY * Assessment & Plan Note - Carey [...] resistant SSI increase NPH 45u before PD ONAL SECRETARY * Consults, Subsequent - Dora Delarosa NP - 06/23/2022 1:48 PM CDT Endocrinology & Diabetes Progress Note Patient: Adelia Garvin Jr., 51 y.o. male (: 1970) Room: [place] [address] ( ) LOS: 19 Adelia Garvin Jr. [...] agitation. 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, with skilled nursing use of insulin, complicated by ESRD on PD, CAD s/p PCI, CHF - HbA1c 7.4% - Uses Omnipod and Dexcom G6 at home, not currently on this- doesn't have the supplies -On significantly higher basal rates on pump at night due to peritoneal dialysis -home settings: Basal rate 0330 >>1.7 0800 >> 0.8 2000 >> 5.8 ICR1:6.5 ISF1:[id number] TIA 4 Over the previous 24 hours, [...] ## Discharge Planning - Follow-up with home sourcing analyst -- Dora Delarosa NP Endocrinology, Metabolism, & Lipid Research Contact Info: New Consults: [phone]) General Endocrine (Non-Diabetes): [phone] (Check 'Treatment Team' assignment for Diabetes 1 vs 2 vs 3) Diabetes 1: Diabetes Fellow: [phone] Diabetes 2: Dora Delarosa NP: [phone] Diabetes 3: See Treatment Team Provider (or [...] Vitals: 06/22/22 1600 06/22/22 1700 06/22/22 1750 06/22/22 1928 BP: 115/61 106/62 119/47 99/66 BP Location: Right arm Right arm Right arm Right arm Patient Position: Lying Lying Lying;HOB 30 degrees HOB 30 degrees Pulse: 112 114 109 79 Resp: 19 24 20 20 Temp: 37 ??C (98.6 ??F) 36.7 ??C [...] edema. Skin: No rash or bruises Date 06/21/22 190 - 06/22/22 0659 06/22/22 07 - 06/23/22 0659 Shift 1654-7850 24 Hour Total 6794-9159 1803-8709 24 Hour Total INTAKE I.V.(mL/kg) 133.2(1.1) Other 01524 25976 NG/GT 100 Shift Total(mL/kg) 87599(93.8) 61037.2(95.7) OUTPUT Urine(mL/kg/hr) 450 450 Emesis/NG output 0 Other 55770 47611 Shift Total(mL/kg) 28186(108.4) 87088(108.4) 450(3.7) 450(3.7) NET -1759 -1525.8 -450 -450 Weight (kg) 120.5 120.5 120.5 120.5 120.5 LABORATORY DATA: Recent Labs Lab Units 06/22/22 1521 06/21/22215406/21/22 1723 WBC K/cumm 4.9 5.9 6.5 HEMOGLOBIN [...] Fellow PGY-4 Consult 1 Service Contact (phone): [phone] After hours and weekends: please page [phone] Cosigned by Miriam Driver MD at 06/23/2022 11:57 AM CDT Associated attestation - Miriam Driver MD - 06/23/2022 11:57 AM CDT I have seen and examined the patient on 06/22/22. I agree with the findings and plan of care as documented in the nephrology fellow's note. Miriam Driver MD Drywall Stripper Division of Nephrology * Assessment & Plan [...] 8:18 PM CDT Associated Problem(s): Atrial fibrillation ([facility]) ([facility]) -Currently rated controlled with metoprolol, CHADsVASc of 4 not on anticoagulation prior to admission. -Follow cardiology for initiation of AC. * Assessment & Plan Note - Luiz Lewis DO - 06/22/2022 8:16 PM CDT Associated Problem(s): Acute on chronic HFrEF (heart failure with reduced ejection fraction) ([facility]) -With acute exacerbation complicated by pulmonary edema since resolved. -Repeat TTE following Impella removal showed recovered EF of 65% with grade I diastolic dysfunction. -Continue metoprolol tartrate, start GDMT per cardiology. * Assessment & Plan Note - Luiz Lewis DO - 06/22/2022 8:15 PM CDT Associated Problem(s): ESRD (end stage renal disease) ([facility]) ([facility]) -Renal consulted, s/p CRRT in the ICU [...] with impella Brief CCU Course: Adelia Garvin is a 51 y.o. male with a history of CHF (EF 50% 2016), Afib (not on AC), HTN, CAD s/p stent 04/06 and 3 stent 12/07, T1DM (insulin pump at home), ESRD on PD, HLD, GERD, hyperparathyroidism, DDD, OA, gout, BEN on CPAP initially presented to OSH for n/v and chest pain, transferred to [facility] for LHC/PCI, who presented to CCU s/p complex PCI with impella and intubated. Now extubated, tolerating PO intake, on home PD. Arrived at [place] from OSH on 06/05. EKG showed sinus [...] Elsie of the CREU service. QUESTIONS? Call [phone] * Subjective & Objective - Luiz Lewis, - 06/22/2022 7:50 PM CDT Transfer Note [...] at 06/22/20221944 Gross per 24 hour Intake 48603 ml Output 80897 ml Net -2209 ml Constitutional - chronically [...] care, and recommended follow up. Dictated by: Aadm Aiken M.D. The radiology attending physician has [...] made/in place: 51 yo male transferred to [facility] ICU for complex PCI with impella.Unable to [...] Patient and/or family are agreeable with plan. software program manager will continue to follow and assist with discharge planning as needed. If any further discharge needs arise, please contact the covering case therapist. Rossi Hay RN * Consults, Subsequent - Dora Delarosa NP - 06/22/2022 12:39 PM CDT Endocrinology & Diabetes Progress Note Patient: Adelia Garvin Jr., 51 y.o. male (: 1970) Room: [place] [address] ( ) LOS: 18 Adelia Garvin Jr. [...] night. Diet: Adult Diet Restricted; Dysphagia 2 (mech altered); Consistent Carbohydrate; Renal Over the previous [...] agitation. 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, with skilled nursing use of insulin, complicated by ESRD on PD, CAD s/p PCI, CHF - HbA1c 7.4% - Uses Omnipod and Dexcom G6 at home, not currently on this- doesn't have the supplies -On significantly higher basal rates on pump at night due to peritoneal dialysis -home settings: Basal rate 0330 >>1.7 0800 >> 0.8 2000 >> 5.8 ICR1:6.5 ISF1:25 [id number] TIA 4 Over the previous 24 hours, [...] ## Discharge Planning - Follow-up with home sourcing analyst -- Dora Delarosa NP Endocrinology, Metabolism, & Lipid Research Contact Info: New Consults: [phone]) General Endocrine (Non-Diabetes): [phone] (Check 'Treatment Team' assignment for Diabetes 1 vs 2 vs 3) Diabetes 1: Diabetes Fellow: [phone] Diabetes 2: Dora Delarosa NP: [phone] Diabetes 3: See Treatment Team Provider (or call Dora Delarosa, above) Diabetes After-Hours & Weekends: Diabetes Fellow * Plan of Care - Jersey Castano, BARREL PAINTER - 06/22/2022 1:10 AM CDT Plan of Care: continue with CPAP overnight. * Plan of Care - Annmarie Ayala, RN - 06/22/2022 12:00 AM CDT Problem: [...] 30 degrees Pulse: 98 101 107 Resp: 17 Temp: TempSrc: SpO2: 94% 95% 91% [...] bruises Neuro: Sedated on ventilator. PERRL. Date 06/20/22699 - 06/21/22 0659 06/21/22 07 - 06/22/22 0659 Shift 8654-6751 4648-6660 24 Hour Total 3432-9953 1774-2536 24 Hour Total INTAKE I.V.(mL/kg) 225(1.8) 399.6(3.4) [...] Fellow PGY-4 Consult 1 Service Contact (phone): [phone] After hours and weekends: please page [phone] Cosigned by Miriam Driver MD at 07/04/2022 10:00 AM PERSONAL SECRETARY ONAL SECRETARY Associated attestation - Miriam Driver MD - 07/04/2022 10:00 AM PERSONAL SECRETARY I have seen and examined the patient on 06/21/22. I agree with the findings and plan of care as documented in the nephrology Fellow's note. Miriam Driver MD Drywall Stripper Division of Nephrology * Consults, Subsequent - Dora Delarosa NP - 06/21/2022 1:09 PM CDT Endocrinology & Diabetes Progress Note Patient: Adelia Garvin Jr., 51 y.o. male (: 1970) Room: [place] [address]/[id number] ( ) LOS: 17 Adelia Garvin Jr. [...] labs, imaging, and diagnostics independently reviewed in [facility] and commented on below. Lab Results Component [...] agitation. 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, with skilled nursing use of insulin, complicated by ESRD on PD, CAD s/p PCI, CHF - HbA1c 7.4% - Uses Omnipod and Dexcom G6 at home, not currently on this- doesn't have the supplies -On significantly higher basal rates on pump at night due to peritoneal dialysis -home settings: Basal rate 0330 >>1.7 0800 >> 0.8 2000 >> 5.8 ICR1:6.5 ISF1:25 [id number] TIA 4 Over the previous 24 hours, [...] ## Discharge Planning - Follow-up with home sourcing analyst -- Dora Delarosa NP Endocrinology, Metabolism, & Lipid Research Contact Info: New Consults: [phone]) General Endocrine (Non-Diabetes): [phone] (Check 'Treatment Team' assignment for Diabetes 1 vs 2 vs 3) Diabetes 1: Diabetes Fellow: [phone] Diabetes 2: Dora Delarosa PRODUCT MANAGEMENT SPECIALIST: [phone] Diabetes 3: See Treatment Team Provider (or [...] dialysis nursing of the conversation. I am power generation turbine room operator tonight, please do not hesitate to page if plans change. Chandrakant Nava MD Nephrology Fellow, PGY-4 Night Service [phone]. * Consults, Subsequent - Carol Sanchez MD - 06/20/2022 1:59 PM CDT Endocrinology & Diabetes Progress Note Patient: Adelia Garvin Jr., 51 y.o. male (: 1970) Room: [place] [address]/[id number] ( ) LOS: 16 Adelia Garvin Jr. [...] Plan 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, with skilled nursing use of insulin, complicated by ESRD on PD, CAD s/p PCI, CHF - HbA1c 7.4% - Uses Omnipod and Dexcom G6 at home, not currently on this- doesn't have the supplies -On significantly higher basal rates on pump at night due to peritoneal dialysis -home settings: Basal rate 0330 >>1.7 0800 >> 0.8 2000 >> 5.8 ICR1:6.5 ISF1:25 [id number] TIA 4 High insulin requirements in setting [...] ## Discharge Planning - Follow-up with home sourcing analyst -- Carol Sanchez MD Endocrinology, Metabolism, & Lipid Research Contact Info: New Consults: [phone]) General Endocrine (Non-Diabetes): [phone] (Check 'Treatment Team' assignment for Diabetes 1 vs 2 vs 3) Diabetes 1: Diabetes Fellow: [phone] Diabetes 2: Dora Delarosa PRODUCT MANAGEMENT SPECIALIST: [phone] Diabetes 3: See Treatment Team Provider (or call Dora Delarosa, above) Diabetes After-Hours & Weekends: Diabetes Fellow * Plan of Care - Milly Cooper RN - 06/20/2022 12:41 PM CDT Rounds with MD, case therapist, social work, & charge nurse Medical chart [...] Patient and family are agreeable with plan. software program manager will continue to follow and assist [...] in 5% dextrose, Recent Labs Lab Units 06/20/2282306/20/22 0025 06/19/22232406/19/22205306/19/22 0909 WBC K/cumm 8.3 -- -- 8.4 4.9 HEMOGLOBIN g/dL 6.6* 6.2* 6.2* 6.8* 9.9* PLATELETS K/cumm 271 -- -- 255 237 Recent Labs Lab Units 06/20/2282306/19/222054 05/30/22 0909 06/18/22224906/18/22 0852 06/17/22211606/17/22 0806/16/22205106/14/22 0816 06/13/22 2249 SODIUM mmol/L 140 140 [...] eventually back to PD Miriam Driver MD [employer] Division of Nephrology * Consults, Subsequent - Sandrine Myers MD - 06/20/2022 6:56 AM CDT Pulmonary Daily Progress Subjective Chief complaint of acute hypoxemic respiratory failure. Interval History: Extubated yesterday to nasal cannula, since weaned off. States he feels tired, but that his breathing does not feel labored. Reports a prior diagnosis of BEN with a home CPAP machine and that [...] Provider] heparin, 0-33 Units/kg/hr, Last Rate: Stopped (10/31/22 0014) norepinephrine, 0-2 mcg/kg/min, Last Rate: Stopped (06/20/22 0130) NxStage 4-potassium/2.5-calcium, 1,400 mL/hr, Last Rate: 1,400 mL/hr (06/20/22 021) NxStage 4-potassium/2.5-calcium, 1,400 mL/hr, Last Rate: 1,400 mL/hr (06/20/22 021) sodium chloride 0.9%, 10 mL/hr, Last Rate: [...] 0.9% I/O last 2 completed shifts: In: 1880 [I.V.:1431; NG/GT:30; IV Piggyback:420] Out: 2222 [Other:2268] [...] AM Result Value Ref Range Product code Z0375D35 Unit Number [id number] Product Blood Type APOS Dispense Status ISSUED [...] AM Result Value Ref Range Product code N7628T91 Unit Number [id number] Product Blood Type APOS Dispense Status RETURNED [...] not require specific follow up. Please call power generation turbine room operator pulmonary consult fellow with additional questions or [...] findings: I/O last 2 completed shifts: In: 27148.4 [I.V.:1014.4; Other:87398; NG/GT:190; IV Piggyback:420] Out: 31265 [Other:06997] I have reviewed current medications and the [...] (06/19/22 1500) Recent Labs Lab Units 06/19/22 0909 06/18/22 2250 06/18/22 0852 WBC K/cumm 4.9 8.4 8.9 HEMOGLOBIN g/dL 9.9* 7.5* 8.8* PLATELETS K/cumm 237 313 283 Recent Labs Lab Units 06/19/22 0909 06/18/22 2250 06/18/22 0852 06/17/22 2117 06/17/22 0802 06/16/22 2052 06/14/22 0816 06/13/22 2249 SODIUM mmol/L 137 140 [...] 93% I/O last 2 completed shifts: In: 99904.4 [I.V.:1014.4; Other:82500; NG/GT:190; IV Piggyback:420] Out: 65959 [Other:60962] I/O this shift: In: 480.2 [I.V.:480.2] Out: [...] mcg/kg/min (Dosing Weight), Last Rate: 0.02 mcg/kg/min (06/18/22 1400) NxStage 4-potassium/2.5-calcium, 1,400 mL/hr, Last Rate: 1,400 [...] 0.9% I/O last 2 completed shifts: In: 80910.3 [I.V.:1388.3; Other:53300; NG/GT:90; IV Piggyback:110] Out: 00760 [Other:48798; Stool:170] Objective Vitals: Vitals: 06/18/22 1508 BP: [...] Pulmonary will continue to follow. Please call power generation turbine room operator pulmonary consult fellow with additional questions or [...] Post Procedure Note Attending: Dr Payam Allison Reconciliation Analyst: Dr. Aric Whitlock Sedation/Anesthesia: Local Pre-Op/Pre-Procedure Diagnosis: [...] bruises Neuro: Sedated on ventilator. PERRL. Date 06/17/22699 - 06/18/22 0659 06/18/22 07 - 06/19/22 0659 Shift 3899-1852 4649-8281 24 Hour Total 6109-7656 0187-0291 24 Hour Total INTAKE I.V.(mL/kg) 953(7.3) 435.3(3.3) 1388.3(10.6) 189(1.4) 189(1.4) Other 7498 7483 12550 05493 46115 NG/GT 90 90 160 160 IV Piggyback 110 110 Shift Total(mL/kg) 8561(65.8) 8008.3(61.1) 54796.3(126.4) 88725(94.3) 22920(94.3) OUTPUT Urine(mL/kg/hr) 0(0) 0(0) Other 9865 1643 49059 23394 76641 Stool 170 170 Shift Total(mL/kg) 9865(75.8) 5754(43.9) 96200(119.1) 07246(115.6) 11939(115.6) [facility] -1304 2254.3 950.3 -2790 -2790 Weight (kg) 130.1 131.1 131.1 131.1 131.1 131.1 LABORATORY DATA: Recent Labs Lab Units 06/18/2285106/17/22223006/17/22211606/17/22801 WBC K/cumm 8.9 -- 7.7 8.5 HEMOGLOBIN g/dL 8.8* 7.9* 6.2* 7.9* PLATELETS K/cumm 283 -- 300 262 Recent Labs Lab Units 06/18/2285106/17/22211606/17/2280106/16/22205106/16/22 0754 06/15/22205006/14/22 0816 06/13/22 2249 SODIUM mmol/L [...] Fellow PGY-4 Consult 1 Service Contact (phone): [phone] After hours and weekends: please page [phone] Cosigned by Miriam Driver MD at 06/18/2022 7:03 PM CDT Associated attestation - Miriam Driver MD - 06/18/2022 7:03 PM CDT I have seen and examined the patient on 06/18/2022. I agree with the findings and plan of care as documented in the nephrology Fellow's note. Miriam Driver MD [employer] Division of Nephrology * Pre-Procedure Note - [...] Diabetes mellitus (HCC) Diabetes mellitus type I ([facility]) Dialysis patient ([facility]) (HCC) ESRD on dialysis ([facility]) ([facility]) GERD (gastroesophageal reflux disease) Hyperlipidemia Hypertension Sleep [...] Horvath MD, New Bag at 06/18/22 015 docusate (COLACE) 10 mg/mL oral liquid 100 mg, 100 mg, feeding tube, Daily, Marcelina Pickard, ROBERTO, 100 mg at 06/18/22 0947 ezetimibe (ZETIA) [...] Marcelina Pickard NP, 50 mcg at 06/17/22 1826 fentaNYL 2500 [...] 1 mg, intramuscular, Q30 Min PRN, Jeffrey Green MD heparin 1,000 unit/mL injection 2,000 Units, [...] unit/mL injection 40 Units, 40 Units, subcutaneous, QAPeter Gonzalez Shangnon Chen, MD [Held by Provider] insulin lispro (HumaLOG, [...] 500,000 Units, 500,000 Units, swish & spit, QID, Fernando Torres MD, 500,000 Units at 06/07/22 [...] De La Torre MD, 8 mg at 06/08/22 204 senna 1.76 mg/mL syrup 8.8 mg, 8.8 mg, oral, Nightly, CastroMeme MD, 8.8 mg at 06/16/22 2110 sodium chloride 0.9% infusion, 10 mL/hr, intravenous, [...] 93% Pertinent Labs: Recent Labs Lab Units 06/18/2285106/17/22223006/17/22211606/17/22 08 WBC K/cumm 8.9 -- 7.7 8.5 HEMOGLOBIN g/dL 8.8* 7.9* 6.2* 7.9* HEMATOCRIT % 27.1* 24.0* 19.1* 24.6* PLATELETS K/cumm 283 -- 300 262 Recent Labs Lab Units 06/18/2252 06/17/22211606/17/22 08 SODIUM mmol/L 143 142 140 POTASSIUM PLASMA [...] been discussed with the patient and/or their sales representative electric service. All questions answered and they agree to proceed. * This addendum was created to correct the sedation plan. Patient is already intubated and sedated.We will continue with current sedation. * Plan of Care - Jersey Castano, BARREL PAINTER - 06/18/2022 12:59 AM CDT Mechanical Ventilation [...] bruises Neuro: Sedated on ventilator. PERRL. Date 06/16/22 07 - 06/17/2265806/17/22699 - 06/18/22 0659 Shift 9465-4081 3233-4627 24 Hour Total 8880-3022 8548-0427 24 Hour Total INTAKE I.V.(mL/kg) 856.1(6.8) 544.4(4.3) 1400.5(11) 911.3(7) 911.3(7) Other 7498 7498 NG/GT 460 460 IV Piggyback 110 110 Shift Total(mL/kg) 1316.1(10.5) 544.4(4.3) 1860.5(14.6) 8519.3(65.5) 8519.3(65.5) OUTPUT Urine(mL/kg/hr) 0(0) 0(0) Other 9865 9865 Shift Total(mL/kg) 0(0) 0(0) 9865(75.8) 9865(75.8) NET 1316.1 544.4 1860.5 -1345.7 -1345.7 Weight (kg) 125 127.2 127.2 130.1 130.1 130.1 LABORATORY DATA: Recent Labs Lab Units 06/17/22 0802 06/16/22205106/16/22 0754 WBC K/cumm 8.5 7.9 9.1 HEMOGLOBIN g/dL [...] Fellow PGY-4 Consult 1 Service Contact (phone): [phone] After hours and weekends: please page [phone] Cosigned by Miriam Driver MD at 06/17/2022 7:02 PM CDT Associated attestation - Miriam Driver MD - 06/17/2022 7:02 PM CDT I have seen and examined the patient on 06/17/2022. I agree with the findings and plan of care as documented in the nephrology Fellow's note. Miriam Driver MD [employer] Division of Nephrology * Consults, Subsequent - [...] Pulmonary will continue to follow. Please call power generation turbine room operator pulmonary consult fellow with additional questions or [...] Jr., 51 y.o. male (: 1970) Room: [place] [address] [address] ( ) LOS: 13 Adelia Garvin Jr. is a 51 y.o. male with PMHx CHF (EF 50% in 2017), atrial fibrillation not on OAC, HTN/HLD, CAD s/p PCI, ESRD on PD, hyperparathyroidism presenting with weakness, N/V, diarrhea and chest pain. He is scheduled for [facility] on 06/06. 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, with terminal carman use of insulin, complicated by ESRD on PD, CAD s/p PCI, CHF - HbA1c 7.4% - Uses Omnipod and Dexcom G6 at home, not currently on this- doesn't have the supplies -On significantly higher basal rates on pump at night due to peritoneal dialysis -home settings: Basal rate 0330 >>1.7 0800 >> 0.8 2000 >> 5.8 ICR1:6.5 ISF1:25 [id number] TIA 4 High insulin requirements in setting [...] ## Discharge Planning - Follow-up with home sourcing analyst -- Delmar Lonog MD PhD Endocrinology, Metabolism, & Lipid Research Contact Info: New Consults: [phone]) General Endocrine (Non-Diabetes): [phone] (Check 'Treatment Team' assignment for Diabetes 1 vs 2 vs 3) Diabetes 1: Diabetes Fellow: [phone] Diabetes 2: Dora Delarosa, PRODUCT MANAGEMENT SPECIALIST: [phone] Diabetes 3: See Treatment Team Provider (or call Dora Delarosa, above) Diabetes After-Hours & Weekends: Diabetes Fellow * Plan of Care - Jersey Castano, BARREL PAINTER - 06/17/2022 12:49 AM CDT Mechanical Ventilation [...] on ventilator. PERRL. Date 06/15/22 07 - 06/16/22 0659 06/16/22 07 - 06/17/22 0659 Shift 9740-0583 9746-9800 24 Hour Total 4249-4397 9142-4250 24 Hour Total INTAKE I.V.(mL/kg) 624.4(5.1) 669(5.4) 1293.4(10.3) 729.7(5.8) 729.7(5.8) Other 1000 85889 62364 NG/GT 275 275 100 100 Shift Total(mL/kg) 1899.4(15.4) 28094(102.8) 03687.4(118) 829.7(6.6) 829.7(6.6) OUTPUT Urine(mL/kg/hr) 0(0) 0(0) 0(0) 0 0 Other 27326 48830 Shift Total(mL/kg) 0(0) 00738(96.7) 31359(96.7) 0(0) 0(0) NET 1899.4 768 2667.4 829.7 829.7 Weight (kg) 123 125 125 125 125 125 LABORATORY DATA: Recent Labs Lab Units 06/16/22 0754 06/16/22 0001 06/15/222050 WBC K/cumm 9.1 11.1* 12.7* HEMOGLOBIN g/dL 7.5* 7.4* 7.2* PLATELETS K/cumm 214 215 204 Recent Labs Lab Units 06/16/22 1257 06/16/22 0754 06/15/22205006/15/22 0806 06/14/22 1941 06/14/22 0816 06/13/22224806/13/222016 SODIUM mmol/L 137 136 137 [...] 0-33 Units/kg/hr, Last Rate: 10.5 Units/kg/hr (06/16/22 175) midazolam, 0-12 mg/hr, Last Rate: 0.5 mg/hr [...] Fellow PGY-4 Consult 1 Service Contact (phone): [phone] After hours and weekends: please page [phone] Cosigned by Miriam Driver MD at 06/16/2022 [...] now due to hyperglycemia. Miriam Driver MD [employer] Division of Nephrology * Pre-Procedure Note - [...] been closed and the order cancelled in Epic. Thank you for the opportunity to participate [...] ramelteon I/O last 2 completed shifts: In: 91722.4 [I.V.:1293.4; Other:33963; NG/GT:275] Out: 28089 [Other:59065] Objective Vitals: Vitals: 06/16/221199 BP: Pulse: 81 [...] respiratory failure (HCC) Assessment & Plan Mr. Garvni is a 51 y/o M with medical [...] Pulmonary will continue to follow. Please call power generation turbine room operator pulmonary consult fellow with additional questions or [...] Jr., 51 y.o. male (: 1970) Room: [place] [address] ( ) LOS: 12 Adelia Garvin Jr. is a 51 y.o. male with PMHx CHF (EF 50% in 2017), atrial fibrillation not on OAC, HTN/HLD, CAD s/p PCI, ESRD on PD, hyperparathyroidism presenting with weakness, N/V, diarrhea and chest pain. He is scheduled for [facility] on 06/06. Diabetes service consulted for T1DM on insulin pump. Interval Events & Subjective He is still sedated intubated On TF at rate 30 ml/hr On PD overnight BG readings are 300-400's Diet: No diet orders on file Recent Labs Lab Units 06/16/22 1050 06/16/22 0754 06/16/22 0752 06/16/22 0452 06/16/22 0001 06/15/22 2051 06/15/22 2049 06/15/22 1521 06/15/22 1120 06/15/22 0821 [...] Plan 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, with terminal carman use of insulin, complicated by ESRD on PD, CAD s/p PCI, CHF - HbA1c 7.4% - Uses Omnipod and Dexcom G6 at home, not currently on this- doesn't have the supplies -On significantly higher basal rates on pump at night due to peritoneal dialysis -home settings: Basal rate 0330 >>1.7 0800 >> 0.8 2000 >> 5.8 ICR1:6.5 ISF1:25 [id number] TIA 4 Currently on TF Glucerna 1.5 ( CHO 133) Recommendations: - please increase Lantus to 40 units qAM - Humalog 10 units Q4hrs - NPH 15 units at the beginning of PD session - Resistant correctional Humalog q4 hrs - POC glucoses q4hrs Discharge recommendations: - TBD ## Discharge Planning - Follow-up with home sourcing analyst -- Kellee Magallanes MD Endocrinology, Metabolism, & Lipid Research Contact Info: New Consults: [phone]) General Endocrine (Non-Diabetes): [phone] (Check 'Treatment Team' assignment for Diabetes 1 vs 2 vs 3) Diabetes 1: Diabetes Fellow: [phone] Diabetes 2: Dora Delarosa, PRODUCT MANAGEMENT SPECIALIST: [phone] Diabetes 3: See Treatment Team Provider (or [...] visit to the patient. Bryce Langley MD, [facility] Drywall [employer]ripp[employer] sales associate Division of Endocrinology, Metabolism & Lipid Research [...] Progressing * Plan of Care - Juanito Hernandez, BARREL PAINTER - 06/15/2022 10:13 PM CDT Patient was [...] ventilator. PERRL. Date 06/14/22699 - 06/15/2265806/15/22699 - 06/16/2259 Shift 7273-8176 8374-7466 24 Hour Total 8339-8321 7819-7725 24 Hour Total INTAKE I.V.(mL/kg) 520.5(4) 498.9(4.1) 1019.4(8.3) 624.4(5.1) 624.4(5.1) NG/GT 521 236 2422 275 275 Shift Total(mL/kg) 905.5(7) 1278.9(10.4) 2184.4(17.8) [...] Lab Units 06/15/22 0806 06/14/22 19406/14/22 0816 06/13/22224806/13/22201606/13/22 0933 06/12/22 2047 SODIUM mmol/L 134* 138 [...] 0-1.5 mcg/kg/hr, Last Rate: 1.5 mcg/kg/hr (06/15/22 183) peritoneal fluid with or without additives for [...] Fellow PGY-4 Consult 1 Service Contact (phone): [phone] After hours and weekends: please page [phone] Cosigned by Miriam Driver MD at 06/15/2022 7:33 PM CDT Associated attestation - Miriam Driver MD - 06/15/2022 7:33 PM CDT I have seen and examined the patient on 06/15/2022. I agree with the findings and plan of care as documented in the nephrology Fellow's note. Miriam Driver MD Drywall [employer]pper Division of Nephrology * Plan of Care - , LUAN Saba - 06/14/2022 10:47 PM CDT Goals: Clinical [...] vent settings Summary: pt 40/9 on vent, nguyen d/c, CRRT Problem: Health Behavior: Goal: Understanding [...] 06/14/2022 2:12 PM CDT Rounds with MD, case therapist, social work, & charge nurse Medical chart [...] Patient and family are agreeable with plan. software program manager will continue to follow and assist with discharge planning as needed * Consults, Rodney - Miriam Driver MD - 06/14/2022 1:58 PM CDT Nephrology SLED/CRRT Procedure Note Date of Service: 06/14/2022 I saw and evaluated the patient during CRRT. Indication for BARREL PAINTER: ESRD Dialysis access: LIJ Trialysis catheter My [...] 202 Recent Labs Lab Units 06/14/22 0816 06/13/22201606/13/22 0933 06/12/22 2047 06/12/22 0802 06/11/222011 SODIUM [...] stable On systemic heparin Miriam Driver MD Drywall Stripper Division of Nephrology Consult 1: After 4 [...] 0-400 mcg/hr, Last Rate: 125 mcg/hr (06/14/22 0800) heparin, 0-33 Units/kg/hr, Last Rate: 7.5 Units/kg/hr (06/14/22 0800) midazolam, 0-12 mg/hr, Last Rate: Stopped (06/13/22 [...] Pulmonary will continue to follow. Please call power generation turbine room operator pulmonary consult fellow with additional questions or [...] evaluated the patient during CRRT. Indication for BARREL PAINTER: ESRD Dialysis access: LIJ Trialysis catheter My [...] mL/hr (06/13/22 1200) Recent Labs Lab Units 06/13/2293206/12/22204606/12/22 08 WBC K/cumm 15.6* 14.6* 12.5* HEMOGLOBIN g/dL 7.7* 8.1* 7.5* PLATELETS K/cumm 191 207 174 Recent Labs Lab Units 06/13/2206/12/22 2047 06/12/22 0802 06/11/22201106/11/22 0848 06/10/22 2227 SODIUM mmol/L [...] Jr., 51 y.o. male (: 1970) Room: [place] [address] [address] ( ) LOS: 9 Adelia Garvin Jr. [...] Plan 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, with terminal carman use of insulin, complicated by ESRD on PD, CAD s/p PCI, CHF - HbA1c 7.4% - Uses Omnipod and Dexcom G6 at home, not currently on this- doesn't have the supplies -On significantly higher basal rates on pump at night due to peritoneal dialysis -home settings: Basal rate 0330 >>1.7 0800 >> 0.8 2000 >> 5.8 ICR1:6.5 ISF1:25 [id number] TIA 4 Currently on TF Glucerna 1.5 ( CHO 133) Recommendations: - please decrease Lantus to 30 units qAM - Humalog 5 units Q4hrs - Resistant correctional Humalog q4 hrs - POC glucoses q4hrs Discharge recommendations: Start Omnipod insulin pump at pre-hospital settings #Acute hypoxic respiratory failure #ESRD on PD at home - on CRRT ## Discharge Planning - Follow-up with home sourcing analyst We will sign off, we are happy to come back on board once he is back on his PD -- Kellee Magallanes MD Endocrinology, Metabolism, & Lipid Research Contact Info: New Consults: [phone]) General Endocrine (Non-Diabetes): [phone] (Check 'Treatment Team' assignment for Diabetes 1 vs 2 vs 3) Diabetes 1: Diabetes Fellow: [phone] Diabetes 2: Dora Delarosa, PRODUCT MANAGEMENT SPECIALIST: [phone] Diabetes 3: See Treatment Team Provider (or [...] discussion with the patient. Bryce Langley MD, [facility] Drywall [employer] sales associate Division of Endocrinology, Metabolism & Lipid Research [...] will decrease Outcome: Progressing * Plan of Gayathri - Joyce Begum RRT - 06/13/2022 4:03 [...] evaluated the patient during CRRT. Indication for BARREL PAINTER: ESRD Dialysis access: LIJ Trialysis catheter My [...] 0-400 mcg/hr, Last Rate: 200 mcg/hr (06/12/22 1700) heparin, 0-2,000 Units/hr, Last Rate: 1,100 Units/hr (06/12/22 1232) midazolam, 0-12 mg/hr, Last Rate: 1.5 mg/hr (06/12/22 1700) nitroglycerin, 0-400 mcg/min, Last Rate: Stopped (06/05/22 2100) norepinephrine, 0-2 mcg/kg/min (Dosing Weight), Last Rate: Stopped (06/11/22 0400) NxStage 4-potassium/2.5-calcium, 1,400 mL/hr, Last Rate: 1,400 mL/hr (06/12/22 1729) NxStage 4-potassium/2.5-calcium, 1,400 mL/hr, Last Rate: 1,400 mL/hr (06/12/22 173) propofol, 0-50 mcg/kg/min, Last Rate: 15 mcg/kg/min (06/12/22 174) sodium chloride 0.9%, 10 mL/hr, Last Rate: [...] at with questions. * Consults, Subsequent - Ayah Hoang MD - 06/12/2022 3:40 PM CDT Endocrine [...] scale Q4h Ayah Hoang MD Endocrinology Fellow [phone] Cosigned by Ann Boston MD at 06/12/2022 [...] mg, oral, QID, Dewey Parra MD, 667 mg at 06/07/22 0801 chlorhexidine (PERIDEX) 0.12 % solution 15 mL, 15 mL, mouth/throat, BID, Meme Castro MD, 15mL at 06/12/22 0839 [Held by Provider] cloNIDine (CATAPRES) tablet 0.1 mg, 0.1 mg, oral, BID, Aunrag Mortensen MD, 0.1 mg at 06/07/22 0802 [...] capsule 50,000 Units, 50,000 Units, oral, Weekly, HoDewey MD, 50,000 Units at 06/06/22 0820 ezetimibe [...] unit/mL injection 33 Units, 33 Units, subcutaneous, QA, Meme Castro MD, 33 Units at 06/12/22 0837 insulin lispro (HumaLOG, ADMELOG) 100 unit/mL injection 0-10 Units, 0-10 Units, subcutaneous, Q4H [facility], Meme Catsro MD, 4 Units at 06/12/22 0459 insulin [...] 500,000 Units, 500,000 Units, swish & spit, QID, Jalal, Abdullah Bin, MD, 500,000 Units at 06/07/22 [...] 10 mg/mL infusion, 0-50 mcg/kg/min, intravenous, Titrated, PeterJeffrey MD, Last Rate: 16.9 mL/hr at 06/12/22 0800, 20 mcg/kg/min at 06/12/22 0800 ramelteon (ROZEREM) tablet 8 mg, 8 mg, feeding tube, Nightly PRN, Tyra De La Torre MD, 8 mg at 06/08/222040 [Held by Provider] ranolazine ER (RANEXA) extended release tablet 500 mg, 500 mg, oral, BID, Dewey Parra MD, 500 mg at 06/07/22 0801 senna [...] mL/hr at 06/12/22 0001, 2,000 mg at 06/12/22 0001 vasopressin in 5% dextrose (VASOSTRICT) 20 unit/100 [...] diaphragm with the tip excluded from the [id number]. Left internal jugular catheter projects at superior [...] yesterday afternoon's CXR was 5.5 cm above boin - would recheck CXR today to make [...] scale Q4h Ayah Hoang MD Endocrinology Fellow [phone] Cosigned by Ann Boston MD at 06/12/2022 [...] evaluated the patient during CRRT. Indication for BARREL PAINTER: ESRD Dialysis access: LIJ Trialysis catheter My [...] 1145) Recent Labs Lab Units 06/11/22 0848 06/10/227 06/10/22751 WBC K/cumm 10.4* 17.2* 10.2* HEMOGLOBIN g/dL 7.8* 9.0* 8.3* PLATELETS K/cumm 191 274 201 Recent Labs Lab Units 06/11/22 0848 06/10/22 2227 06/10/22 0752 06/09/223 06/09/2275606/08/222007 SODIUM mmol/L 134* 136 135 134* < [...] this interval not displayed. Vonnie Cody MD car sales associate Division of Nephology Consult 1: After 4 PM on , after 12 PM on Monday, and all day Monday, please contact on-call renal fellow at with questions. * Consults, Subsequent - Patricio Pearce MD - 06/11/2022 9:42 AM CDT Pulmonary [...] fentaNYL, 0-400 mcg/hr, Last Rate: 200 mcg/hr (06/11/22 0900) midazolam, 0-12 mg/hr, Last Rate: 1.5 mg/hr (06/11/22 0900) nitroglycerin, 0-400 mcg/min, Last Rate: Stopped (06/05/22 2100) norepinephrine, 0-2 mcg/kg/min (Dosing Weight), Last Rate: Stopped (06/11/22 0400) NxStage 4-potassium/2.5-calcium, 1,400 mL/hr, Last Rate: 1,400 mL/hr (06/11/22 0636) NxStage 4-potassium/2.5-calcium, 1,400 mL/hr, Last Rate: 1,400 mL/hr (06/11/22 06) propofol, 0-50 mcg/kg/min, Last Rate: 30 mcg/kg/min [...] 0.9%, 3-12 mL/hr, Last Rate: 3 mL/hr (06/11/22899) vasopressin, 0-0.06 Units/min, Last Rate: 0.02 Units/min (06/11/22899) PRN Meds:. acetaminophen albuterol HFA bisacodyL bisacodyl EC dextrose OR dextrose dextrose 5% water dextrose 5% water fentaNYL fentaNYL fluticasone propionate glucagon Dialysis Access Care AND heparin lidocaine ondansetron ODT OR ondansetron phenoL polyethylene glycol ramelteon sodium chloride 0.9% I/O last 2 completed shifts: In: 2429 [I.V.:1334; NG/GT:470; IV Piggyback:625] Out: 4385 [Urine:80; Emesis/NG output:25; Other:4280] Objective Vitals: Vitals: 06/11/22899 BP: Pulse: 58 Resp: 20 Temp: SpO2: [...] resident's/fellow's note.. * Plan of Care - Bambi Guerrero RN - 06/11/2022 5:36 AM CDT Problem: [...] evaluated the patient during CRRT. Indication for BARREL PAINTER: ESRD Dialysis access: LIJ Trialysis catheter My [...] mL/hr (06/10/22 1000) Recent Labs Lab Units 06/10/2275106/09/22203206/09/22 075 WBC K/cumm 10.2* 9.1 8.6 HEMOGLOBIN g/dL 8.3* 8.2* 8.1* PLATELETS K/cumm 201 208 179 Recent Labs Lab Units 06/10/22 07506/09/22203206/09/227 06/08/22200706/08/228 06/07/22 2258 SODIUM mmol/L 135 134* 134* [...] this interval not displayed. Vonnie Cody MD car sales associate Division of Nephology Consult 1: After 4 PM on , after 12 PM on Monday, and all day Monday, please contact on-call renal fellow at with questions. * Consults, Subsequent - Kellee Magallanes MD - 06/10/2022 1:00 PM CDT Endocrinology & Diabetes Progress Note Patient: Adelia Garvin Jr., 51 y.o. male (: 1970) Room: [place] [address] [address] ( ) LOS: 6 Adelia Garvin Jr. is a 51 y.o. male with PMHx CHF (EF 50% in 2017), atrial fibrillation not on OAC, HTN/HLD, CAD s/p PCI, ESRD on PD, hyperparathyroidism presenting with weakness, N/V, diarrhea and chest pain. He is scheduled for [facility] on 06/06. 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, with terminal carman use of insulin, complicated by ESRD on PD, CAD s/p PCI, CHF - HbA1c 7.4% - Uses Omnipod and Dexcom G6 at home, not currently on this- doesn't have the supplies -On significantly higher basal rates on pump at night due to peritoneal dialysis -home settings: Basal rate 0330 >>1.7 0800 >> 0.8 2000 >> 5.8 ICR1:6.5 ISF1:25 [id number] TIA 4 Recommendations: - Lantus 33 units [...] ## Discharge Planning - Follow-up with home sourcing analyst -- Kellee Magallanes MD Endocrinology, Metabolism, & Lipid Research Contact Info: New Consults: [phone]) General Endocrine (Non-Diabetes): [phone] (Check 'Treatment Team' assignment for Diabetes 1 vs 2 vs 3) Diabetes 1: Diabetes Fellow: [phone] Diabetes 2: Dora Delarosa, PRODUCT MANAGEMENT SPECIALIST: [phone] Diabetes 3: See Treatment Team Provider (or [...] discussion with the patient. Bryce Langley MD, [facility] [employer] sales associate Division of Endocrinology, Metabolism & Lipid Research * Consults, Subsequent - Reji Rosales, Patricio Jauregui MD - 06/10/2022 11:27 AM CDT Pulmonary [...] Hold] aspirin, 81 mg, feeding tube, Daily [MAR Hold] atorvastatin, 80 mg, feeding tube, Daily [MAR Hold] calcitRIOL, 0.25 mcg, feeding tube, Daily [Held by Provider] calcium acetate(phosphat bind), 667 mg, oral, QID [MAR Hold] chlorhexidine, 15 mL, mouth/throat, BID [Held by Provider] cloNIDine, 0.1 mg, oral, BID [MAR Hold] clopidogreL, 75 mg, feeding tube, Daily [MAR Hold] docusate, 100 mg, feeding tube, Daily [...] Rate: 3 mL/hr (06/10/22 1000) PRN Meds:. [OCT Hold] acetaminophen [Oct] albuterol HFA [Oct] bisacodyL [Oct] [...] purge fluid 0-30 mL/hr to machine Continuous Peter,Jeffrey Robles MD 15.4 mL/hr at 06/10/22 1000 15.4 [...] unit/mL injection 33 Units 33 Units subcutaneous [facility] Meme Castro MD 33 Units at 06/10/22 0847 insulin lispro (HumaLOG, ADMELOG) 100 unit/mL injection 0-10 Units 0-10 Units subcutaneous Q4H [facility] Meme Castro MD 2 Units at 06/10/22 0353 [Held by Provider] isosorbide mononitrate ER (IMDUR) extended release tablet 30 mg 30 mg oral DailyDewey Parra MD 30 mg at 06/07/22 0801 lidocaine (LIDODERM) 5 % patch 1 patch 1 patch transdermal Daily PRN Dewey Parra MD meropenem (MERREM) 1,000 mg/110 mL in sodium chloride 0.9% (premix) 1,000 mg 1,000 mg intravenous Q12H Tyra Casper MD 220 mL/hr at 06/10/22 0000 1,000 mg at 06/10/22 0000 [Held by Provider] metoprolol tartrate (LOPRESSOR) immediate release tablet 12.5 mg 12.5 mg oral Q6H Anurag Mortensen MD nitroglycerin in dextrose 5% 50 mg/250 mL (200 mcg/mL) infusion (premix) 0-400 mcg/min intravenous Titrated Dewey Parra MD Stopped at 06/05/22 2100 norepinephrine in [...] suspension 500,000 Units 500,000 Units swish &spit Low Shipman MD 500,000 Units at 06/07/22 0802 ondansetron [...] 8 mg 8 mg feeding tube Nightly MOISESN Tyra De La Torre MD 8 mg at 06/08/222040 [Held by Provider] [...] evaluated the patient during CRRT. Indication for BARREL PAINTER: ESRD Dialysis access: LIJ Trialysis catheter My [...] 3-12 mL/hr, Last Rate: Stopped (06/07/22 190) Recent Labs Lab Units 06/09/22 0757 06/08/22 [...] this interval not displayed. Vonnie Cody MD car sales associate Division of Nephology Consult 1: After 4 PM on week, after 12 PM on Monday, and all [...] Jr., 51 y.o. male (: 1970) Room: [place] [address] [address] ( ) LOS: 5 Adelia Garvin Jr. is a 51 y.o. male with PMHx CHF (EF 50% in 2017), atrial fibrillation not on OAC, HTN/HLD, CAD s/p PCI, ESRD on PD, hyperparathyroidism presenting with weakness, N/V, diarrhea and chest pain. He is scheduled for [facility] on 06/06. Diabetes service consulted for T1DM on insulin pump. Interval Events & Subjective He is still sedated intubated , no significant improvement in his oxygen needs. He is currently on D10% 20 ml/hr Minimal requirements on ISS BS readings are controlled Diet: No diet orders on file Recent Labs Lab Units 06/09/22 0757 06/09/22 0755 06/09/22 0406 06/08/22 2325 06/08/22 2008 06/08/22 2004 06/08/22 2003 06/08/22 1620 06/08/22 1146 06/08/22 0831 GLUCOSE mg/dL [...] Plan 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, with terminal carman use of insulin, complicated by ESRD on PD, CAD s/p PCI, CHF - HbA1c 7.4% - Uses Omnipod and Dexcom G6 at home, not currently on this- doesn't have the supplies -On significantly higher basal rates on pump at night due to peritoneal dialysis -home settings: Basal rate 0330 >>1.7 0800 >> 0.8 2000 >> 5.8 ICR1:6.5 ISF1:25 [id number] TIA 4 Recommendations: - Lantus 33 units [...] ## Discharge Planning - Follow-up with home sourcing analyst -- Kellee Magallanes MD Endocrinology, Metabolism, & Lipid Research Contact Info: New Consults: [phone]) General Endocrine (Non-Diabetes): [phone] (Check 'Treatment Team' assignment for Diabetes 1 vs 2 vs 3) Diabetes 1: Diabetes Fellow: [phone] Diabetes 2: Dora Delarosa, PRODUCT MANAGEMENT SPECIALIST: [phone] Diabetes 3: See Treatment Team Provider (or call Dora Delarosa, above) Diabetes After-Hours & Weekends: Diabetes Fellow Cosigned by Bryce Lnagley MD at 06/09/2022 12:58 PM CDT Associated [...] discussion with the patient. Bryce Langley MD, [facility] [employer] sales associate Division of Endocrinology, Metabolism & Lipid Research * Plan of Care - MartachavaWillow RRT - 06/09/2022 4:50 AM CDT Mechanical [...] Jr., 51 y.o. male (: 1970) Room: [place] [address]/[id number] ( ) LOS: 4 Adelia Garvin Jr. [...] Plan 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, with skilled nursing use of insulin, complicated by ESRD on PD, CAD s/p PCI, CHF - HbA1c 7.4% - Uses Omnipod and Dexcom G6 at home, not currently on this- doesn't have the supplies -On significantly higher basal rates on pump at night due to peritoneal dialysis -home settings: Basal rate 0330 >>1.7 0800 >> 0.8 2000 >> 5.8 ICR1:6.5 ISF1:25 [id number] TIA 4 Recommendations: - Lantus 33 units [...] ## Discharge Planning - Follow-up with home sourcing analyst -- Kellee Magallanes MD Endocrinology, Metabolism, & Lipid Research Contact Info: New Consults: [phone]) General Endocrine (Non-Diabetes): [phone] (Check 'Treatment Team' assignment for Diabetes 1 vs 2 vs 3) Diabetes 1: Diabetes Fellow: [phone] Diabetes 2: Dora Delarosa, PRODUCT MANAGEMENT SPECIALIST: [phone] Diabetes 3: See Treatment Team Provider (or [...] evaluated the patient during CRRT. Indication for BARREL PAINTER: ESRD Dialysis access: LIJ Trialysis catheter My [...] epoprostenol, 120 mcg/hr, Last Rate: 120 mcg/hr (06/08/22 0718) fentaNYL, 0-400 mcg/hr, Last Rate: 100 mcg/hr (06/08/22 0900) impella purge solution infusion, 0-30 mL/hr, Last Rate: 16.6 mL/hr (06/08/22 0900) heparin, 0-33 Units/kg/hr, Last Rate: Stopped (06/07/22 1105) nitroglycerin, 0-400 mcg/min, Last Rate: Stopped (06/05/22 2100) norepinephrine, 0-2 mcg/kg/min (Dosing Weight), Last Rate: Stopped (06/08/22 0745) NxStage 4-potassium/2.5-calcium, 1,400 mL/hr, Last Rate: 1,000 mL/hr (06/08/22 0523) NxStage 4-potassium/2.5-calcium, 1,400 mL/hr, Last Rate: 1,000 mL/hr (06/08/22 0521) propofol, 0-50 mcg/kg/min, Last Rate: 20 mcg/kg/min [...] Rate: Stopped (06/07/221900) Recent Labs Lab Units 06/08/22 0214 06/07/22 2054 06/07/22 1942 06/07/22 1824 WBC K/cumm 10.1* -- 8.6 7.3 HEMOGLOBIN [...] -- 4.7* 7.2* 6.6* Vonnie Cody MD car sales associate Division of Nephology Consult 1: After 4 PM on , after 12 PM on Monday, and all day Monday, please contact on-call renal fellow at with questions. * Plan of Care - Joyce Begum, BARREL PAINTER - 06/08/2022 3:33 AM CDT Patient on mechanical ventilation. Wean as tolerated. * Plan of Care - Low Cardoso MD - 06/07/2022 4:37 PM CDT Nephrology update note Patient not seen, off the floor for cardiac catheterization Patient reportedly had cardiopulmonary decompensation requiring intubation. Additionally had Impella placed and undergoing ECMO evaluation Trialysis catheter placed while in cardiac labor relations director Given need for aggressive volume removal, will start CVVHDF Low Cardoso MD Nephrology Fellow Consult 2 Service Contact via [employer] Message After 4pm on , after 12pm [...] Lepe MD * Significant Event - Cj aYng MD - 06/07/2022 2:51 PM CDT Anesthesiology [...] given. Additionally hypoxic on blood gas. Assisted [facility] team in getting levo and epi gtt started, titrated up to 0.1mcg/kg/min each. Impella placed by interventional cardiology team. CTS at bedside for ECMO evaluation. Cj Yang, CA-3, Anesthesiology [facility] Cosigned by Cody Mendosa MD at 06/08/2022 2:17 PM CDT Associated attestation - Cody Mendosa MD - 06/08/2022 2:17 PM CDT Anesthesia STAT was called while patient in labor relations director for complex PCI. Upon my arrival, he [...] Jr., 51 y.o. male (: 1970) Room: [facility]/NO* ( ) LOS: 3 [...] 1127 06/07/22 0759 06/07/22 0417 06/06/22 2351 06/06/22201706/06/22 2016 06/06/22 1753 06/06/22 1138 06/06/22 0806 [...] Plan 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, with skilled nursing use of insulin, complicated by ESRD on PD, CAD s/p PCI, CHF - HbA1c 7.4% - Uses Omnipod and Dexcom G6 at home, not currently on this- doesn't have the supplies - - On significantly higher basal rates on pump at night due to peritoneal dialysis -home settings: Basal rate 0330 >>1.7 0800 >> 0.8 2000 >> 5.8 ICR1:6.5 ISF1:25 [id number] TIA 4 Recommendations: - Lantus 33 units [...] ## Discharge Planning - Follow-up with home sourcing analyst -- Kellee Magallanes MD Endocrinology, Metabolism, & Lipid Research Contact Info: New Consults: [phone]) General Endocrine (Non-Diabetes): [phone] (Check 'Treatment Team' assignment for Diabetes 1 vs 2 vs 3) Diabetes 1: Diabetes Fellow: [phone] Diabetes 2: Dora Delarosa PRODUCT MANAGEMENT SPECIALIST: [phone] Diabetes 3: See Treatment Team Provider (or call Droa Delarosa, above) Diabetes After-Hours & Weekends: Diabetes [...] Dewey Parra MD 10 mg at 06/07/22 08 aspirin enteric coated tablet 81 mg 81 mg oral Daily Dewey Parra MD 81 mg at 06/07/22 08 atorvastatin (LIPITOR) tablet 80 mg 80 mg oral Daily Dewey Parra MD 80 mg at 06/07/22 08 calcitRIOL (ROCALTROL) capsule 0.25 mcg 0.25 mcg oral Daily Dewey Parra MD 0.25 mcg at 06/07/22 08 calcium acetate(phosphat bind) (PHOSLO) capsule 667 mg 667 mg oral QID Dewey Parra MD 667 mg at 06/07/22 08 cloNIDine (CATAPRES) tablet 0.1 mg 0.1 mg oral BID Anurag Mortensen MD 0.1 mg at 06/07/22 08 clopidogreL (PLAVIX) tablet 75 mg 75 mg oral Daily Dewey Parra MD 75 mg at 06/07/22 08 dextrose gel in packet 15 g 15 g oral Q15 Min PRN Dewey Parra MD Or dextrose (D10W) 10% bolus 250 mL 250 mL intravenous Q15 Min PRN Dewey Parra MD docusate sodium (COLACE) capsule 100 mg 100 mg oral Daily Dewey Parra MD 100 mg at 06/07/22 08 ergocalciferol (VITAMIN D) capsule 50,000 Units 50,000 Units oral Weekly Dewey Parra MD 50,000 Units at 06/06/22 0820 ezetimibe (ZETIA) tablet 10 mg 10 mg oral Daily Dweey Parra MD 10 mg at 06/07/22 0802 [...] Moderate * Plan of Care - Sachi Starr, LUAN - 06/07/2022 6:29 AM CDT Clinical goals for the shift: monitor VS, improve oxygenation status, go to labor relations director for [facility] today,possibly do another scan for [...] Thank you, SIL Avilez, RN, CCDS Email: [email or web address] * Consults, Subsequent - Low Cardoso MD [...] degrees Pulse: 66 64 63 62 Resp: Temp: 37.7 ??C (99.9 ??F) 37.7 ??C [...] Behavior normal. Date 06/05/22699 - 06/06/2265806/06/22699 - 06/07/22658 Shift 5310-4381 9912-4195 24 Hour Total 7512-3961 5084-3421 24 Hour Total INTAKE P.O. 60 60 450 450 I.V.(mL/kg) 443.1(3.1) 443.1(3.1) 147.7(1) 147.7(1) Other 41177 29189 22695 IV Piggyback 105 105 Shift Total(mL/kg) 59528(84.2) 82640.1(86.1) 18651.1(170.3) 597.7(4.2) 597.7(4.2) OUTPUT Urine(mL/kg/hr) 0(0) 6(0) 6(0) 0 0 Other 73505 22701 06526 Stool 0 0 Shift Total(mL/kg) 86976(87.7) 37933(98.3) 07316(186) 0(0) 0(0) NET -498 -1729.9 -2227.9 597.7 597.7 Weight (kg) 142 142 142 142 142 142 LABORATORY DATA: Recent Labs Lab Units 06/05/22204606/05/22 1554 06/04/22 2252 WBC K/cumm 9.1 10.7* 7.7 HEMOGLOBIN g/dL 9.3* 10.3* 9.5* PLATELETS K/cumm 201 238 195 Recent Labs Lab Units 06/05/22204606/05/22 1554 06/05/22 1522 06/05/22 1517 06/04/22 2252 SODIUM [...] Nephrology Fellow Consult 2 Service Contact via [employer] Message After 4pm on , after 12pm [...] Jr., 51 y.o. male (: 1970) Room: [place] [address] [address] ( ) LOS: 2 Adelia Garvin Jr. is a 51 y.o. male with PMHx CHF (EF 50% in 2017), atrial fibrillation not on OAC, HTN/HLD, CAD s/p PCI, ESRD on PD, hyperparathyroidism presenting with weakness, N/V, diarrhea and chest pain. He is scheduled for [facility] on 06/06. Diabetes service consulted for T1DM [...] labs, imaging, and diagnostics independently reviewed in [facility] and commented on below. Lab Results Component Value Date TSH 0.80 03/21/2017 Lab Results Component Value Date CHOL 149 06/04/2022 TRIG 165 (H) 06/04/2022 HDL 34 (L) 06/04/2022 LDLCALC 82 06/04/2022 Lab Results Component Value Date 25HYDROVITD 22.7 (L) 03/22/2017 Lab Results Component Value Date HGBA1C 7.8 (H) 06/04/2022 Assessment & Plan 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, with skilled nursing use of insulin, complicated by ESRD on PD, CAD s/p PCI, CHF - HbA1c 7.4% - Uses Omnipod and Dexcom G6 at home, not currently on this- doesn't have the supplies - - On significantly higher basal rates on pump at night due to peritoneal dialysis -home settings: Basal rate 0330 >>1.7 0800 >> 0.8 2000 >> 5.8 ICR1:6.5 ISF1:25 [id number] TIA 4 Recommendations: - Lantus 33 units [...] ## Discharge Planning - Follow-up with home sourcing analyst -- Kellee Magallanes MD Endocrinology, Metabolism, & Lipid Research Contact Info: New Consults: [phone]) General Endocrine (Non-Diabetes): [phone] (Check 'Treatment Team' assignment for Diabetes 1 vs 2 vs 3) Diabetes 1: Diabetes Fellow: [phone] Diabetes 2: Dora Delarosa PRODUCT MANAGEMENT SPECIALIST: [phone] Diabetes 3: See Treatment Team Provider (or [...] Shift: Monitor VS and keep SBP 140-160, chemistry lab instructor for [facility] Summary: * Plan of Care - Karuna [...] we should call his brother Ronny Garvin [phone] or [phone] (pt not sure which is the correct [...] utility assistance and LIHEAP assistance programs for [facility]. Pt denied other needs stating he has good support from his brother and son. SÁNCHEZ Virk, PILER * Plan of Care - Manisha Wong RRT - 06/06/2022 5:14 AM CDT NPPV [...] Goal: Understanding of discharge needs will improve 06/05/2022 184 by Kerry Henley, RN Outcome: Progressing 06/05/20221813 by Kerry Henley, RN Outcome: Progressing Problem: Lack of Knowledge: Goal: Ability to state ways to decrease the risk of falls will improve 06/05/2022 1843 by Kerry Henley RN Outcome: Progressing 06/05/2022 1814 by Kerry Henley, RN Outcome: Progressing Problem: Safety: Goal: Will remain free from falls 06/05/2022 1843 by Kerry Henley, RN Outcome: Progressing 06/05/2022 1814 by Kerry Henley, RN Outcome: Progressing Goal: Will remain free from injury from falls 06/05/2022 1843 by Kerry Henley, RN Outcome: Progressing 06/05/2022 1814 by Kerry Henley, RN Outcome: Progressing Goal: Will remain free from falls and injury in home environment 06/05/2022 184 by Kerry Henley, RN Outcome: Progressing 06/05/2022 181 by Kerry Henley, RN Outcome: Progressing Problem: Lack of Knowledge: Goal: Knowledge of disease or condition and prescribed therapeutic regimen will improve 06/05/2022 1843 by Kerry Henley, RN Outcome: Progressing 06/05/2022 181 by Kerry Henley RN Outcome: Progressing Problem: Coping: Goal: Level [...] Henley, RN Outcome: Progressing Goal: Knowledge of disease or condition will improve 06/05/2022 1843 by Kerry Henley, RN Outcome: Progressing 06/05/2022 181 by Kerry Henley, RN Outcome: Progressing Goal: Knowledge of the prescribed therapeutic regimen will improve 06/05/2022 1843 by Kerry Henley RN Outcome: Progressing 06/05/2022 1814 by Kerry Henley, RN Outcome: Progressing Goal: Knowledge of prevention and discharge planning will improve 06/05/2022 1843 by Kerry Henley, RN Outcome: Progressing 06/05/2022 1814 by Kerry Henley, RN Outcome: Progressing Problem: Coping: Goal: Ability to adjust to condition or change in health will improve 06/05/2022 1843 by Kerry Henley, RN Outcome: Progressing 06/05/2022 1814 by Kerry Henley, RN Outcome: Progressing Problem: [...] by Kerry Henley, RN Outcome: Progressing Goal: Ability to identify and utilize available resources and services will improve 06/05/2022 1843 by Kerry Henley, RN Outcome: Progressing 06/05/2022 181 by Kerry Henley, RN Outcome: Progressing Goal: Ability to manage health-related needs will improve 06/05/2022 1843 by Kerry Henley, RN Outcome: Progressing 06/05/2022 181 by Kerry Henley, RN Outcome: Progressing Problem: Nutritional: Goal: Maintenance of adequate nutrition will improve 06/05/2022 1843 by Kerry Henley, RN Outcome: Progressing 06/05/2022 181 by Kerry Henley, RN Outcome: Progressing Goal: Progress toward achieving an optimal weight will improve 06/05/2022 1843 by Kerry Henley, RN Outcome: Progressing 06/05/2022 181 by Kerry Henley, RN Outcome: Not Progressing Problem: Physical Regulation: Goal: Complications related to the disease process, condition or treatment will be avoided or minimized 06/05/2022 184 by Kerry Henley RN Outcome: Progressing 06/05/2022 1814 by Kerry Henley RN Outcome: Progressing Goal: Diagnostic test results will improve 06/05/2022 184 by Kerry Henley RN Outcome: Progressing 06/05/2022 181 by Kerry Henley RN Outcome: Progressing Problem: Skin Integrity: Goal: Risk for impaired skin integrity will decrease 06/05/2022 184 by Kerry Henley RN Outcome: Progressing 06/05/2022 1814 by Kerry Henley RN Outcome: Progressing * [...] rebreather from previously mid 70s on nasal cannula.Appeared uncomfortable, tachypneic and complaining of substernal chest pain. He received 2 doses ofsublingual nitro prior to arrival. An ACT was called and he was promptly placed on BiPAP with return of oxygen saturation to mid 90s. Chest x- ray was performed which showed pulmonary edema. Labs including BMP, troponins were collected per action nurse. EKG was performed at bedside. It was a low qual ity EKG but did not show any gross [...] POCT GLUCOSE DEVICE Routine 06/29/2022 11:51 AM PERSONAL SECRETARY POCT GLUCOSE DEVICE Routine 06/29/2022 7 :43 AM PERSONAL SECRETARY POCT GLUCOSE DEVICE Routine 06/28/2022 8 :08 PM PERSONAL SECRETARY COVID-19 CORONAVIRUS RNA Routine 06/28/2022 3:46 PM PERSONAL SECRETARY POCT GLUCOSE DEVICE Routine 06/28/2022 3 :33 PM PERSONAL SECRETARY POCT GLUCOSE DEVICE Routine 06/28/2022 11:42 AM PERSONAL SECRETARY POCT GLUCOSE DEVICE Routine 06/28/2022 9 :53 AM PERSONAL SECRETARY POCT GLUCOSE DEVICE Routine 06/28/2022 8 :37 AM PERSONAL SECRETARY POCT GLUCOSE DEVICE Routine 06/28/2022 8 :20 AM PERSONAL SECRETARY POCT GLUCOSE DEVICE Routine 06/28/2022 8 :02 AM PERSONAL SECRETARY POCT GLUCOSE DEVICE Routine 06/28/2022 7 :41 AM PERSONAL SECRETARY POCT GLUCOSE DEVICE Routine 06/27/2022 7 :51 PM PERSONAL SECRETARY POCT GLUCOSE DEVICE Routine 06/27/2022 4 :54 PM PERSONAL SECRETARY POCT GLUCOSE DEVICE Routine 06/27/2022 11:37 AM PERSONAL SECRETARY POCT GLUCOSE DEVICE Routine 06/27/2022 7 :54 AM PERSONAL SECRETARY EGFR Routine 06/27/2022 3:51 AM PERSONAL SECRETARY CBC WITHOUT DIFFERENTIAL Routine 06/27/2022 3:51 AM PERSONAL SECRETARY BASIC METABOLIC PANEL Routine 06/27/2022 3:51 AM PERSONAL SECRETARY POCT GLUCOSE DEVICE Routine 06/27/2022 1 :54 AM PERSONAL SECRETARY POCT GLUCOSE DEVICE Routine 06/26/2022 9 :14 PM PERSONAL SECRETARY POCT GLUCOSE DEVICE Routine 06/26/2022 5 :53 PM PERSONAL SECRETARY POCT GLUCOSE DEVICE Routine 06/26/2022 1 :16 PM PERSONAL SECRETARY POCT GLUCOSE DEVICE Routine 06/26/2022 11:09 AM PERSONAL SECRETARY POCT GLUCOSE DEVICE Routine 06/26/2022 9 :07 AM PERSONAL SECRETARY POCT GLUCOSE DEVICE Routine 06/26/2022 7 :25 AM PERSONAL SECRETARY EGFR Routine 06/26/2022 3:23 AM PERSONAL SECRETARY CBC WITHOUT DIFFERENTIAL Routine 06/26/2022 3:23 AM PERSONAL SECRETARY BASIC METABOLIC PANEL Routine 06/26/2022 3:23 AM PERSONAL SECRETARY POCT GLUCOSE DEVICE Routine 06/26/2022 1 :32 [...] VIDEO IP Routine 06/21/2022 2:06 PM CDT OFFICE CLERK ROUTINE EVALUATE AND TREAT VIDEOFLUOROSCOPIC SWALLOW STUDY Routine [...] DEVICE Routine 06/17/2022 7 :40 PM CDT AR INSJ NON-TUNNELED CENTRAL VENOUS CATH AGE 5 YR/> Routine 06/17/2022 7:30 PM CDT Hypotension, unspecified hypotension type End stage renal disease (CMS/HCC) (HCC) CHEST PHYSIO THERAPY Routine 06/17/2022 6:00 PM CDT POCT GLUCOSE DEVICE Routine 06/17/2022 5 :11 PM CDT POCT GLUCOSE DEVICE Routine 06/17/2022 3:01 PM CDT POCT GLUCOSE DEVICE Routine 06/17/2022 [...] PM CDT POCT GLUCOSE DEVICE Routine 06/16/2022 8:06 PM CDT POCT GLUCOSE DEVICE Routine 06/16/2022 [...] METABOLIC PANEL STAT 06/07/2022 10:58 PM CDT AR ARTL CATHJ/CANNULJ MNTR/TRANSFUSION SPX PRQ Routine 06/07/2022 [...] EGFR STAT 06/05/2022 3:22 PM CDT POCT [id number]-[id number]-[id number]-HCT,WB - ISTAT Routine 06/05/2022 3:22 PM CDT [...] * (ABNORMAL) POCT glucose (06/29/2022 11:51 AM PERSONAL SECRETARY) Glucose, POC 302(H) 70 - 199 mg/dL [facility] Blood 06/29/2022 11:5 1 AM PERSONAL SECRETARY 06/29/2022 11:51 AM PERSONAL SECRETARY Frank Bowers MD LAB POCT ORDERABLES - DEVICE F inal Result [facility] Department [place] [address] * (ABNORMAL) POCT glucose (06/29/2022 7:43 AM PERSONAL SECRETARY) Glucose, POC 262(H) 70 - 199 mg/dL [facility] Glucose comment 1 Glu2: RN/ Notified [facility] Blood 06/29/2022 7:43 AM PERSONAL SECRETARY 06/29/2022 7:43 AM PERSONAL SECRETARY us Frank Bowers MD LAB POCT ORDERABLES - DEVICE F inal Result Performing Organization Address City/[facility]/ZIP Co de Phone Number [facility] [place] [address] * (ABNORMAL) POCT glucose (06/28/2022 8:08 PM PERSONAL SECRETARY) Pathologist [facility] Glucose, POC 260(H) 70 - 199 mg/dL [facility] Blood 06/28/2022 8:08 PM PERSONAL SECRETARY 06/28/2022 8:08 PM PERSONAL SECRETARY Frank Bowers MD LAB POCT ORDERABLES - DEVICE F inal Result Performing Organization Address [facility] de Phone Number [facility] Department [place] [address] * COVID-19 Coronavirus RNA Nasopharyngeal (06/28/2022 3:46 PM PERSONAL SECRETARY) [facility] COVID-19 RNA Negative Negative [facility] Nasopharyngeal 06/28/2022 3: 46 PM PERSONAL SECRETARY 06/28/2022 4:22 PM PERSONAL SECRETARY Narrative [facility] - 06/28/2022 5:03 PM PERSONAL SECRETARY Is the patient experiencing any symptoms consistent with COVID (eg. Fever, cough, shortness of breath)?->No What is the reason for testing?->Placement in post-acute care setting (Rapid) ??Interpretive data: Synonyms for this test include: PCR and NAAT . ??This test is performed using the [employer] Xpert Xpress plus assay. This is a [...] . ??This test is performed using the [employer] Xpert Xpress plus assay. This is a [...] Interpretive data last revised January 19, 2022. Frank Bowers MD LAB MICROBIOLOGY - GENERAL ORD ERABLES Final Result Performing Organization Address City/[facility] Co de Phone Number [facility] [place] [address] * (ABNORMAL) POCT glucose (06/28/2022 3:33 PM PERSONAL SECRETARY) Glucose, POC 299(H) 70 - 199 mg/dL [facility] Blood 06/28/2022 3:33 PM PERSONAL SECRETARY 06/28/2022 3:33 PM PERSONAL SECRETARY Frank Bowers MD LAB POCT ORDERABLES - DEVICE F inal Result Performing Organization Address [facility] Co de Phone Number [facility] [place] [address] * (ABNORMAL) POCT glucose (06/28/2022 11:42 AM PERSONAL SECRETARY) Glucose, POC 281(H) 70 - 199 mg/dL [facility] Glucose comment 1 Glu2: RN/MD Notified [facility] Blood 06/28/2022 11:4 2 AM PERSONAL SECRETARY 06/28/2022 11:42 AM PERSONAL SECRETARY Frank Bowers MD LAB POCT ORDERABLES - DEVICE F inal Result Performing Organization Address City/[facility] Co de Phone Number [facility] Department [place] [address] * POCT glucose (06/28/2022 9:53 AM PERSONAL SECRETARY) Glucose, POC 181 70 - 199 mg/dL [facility] Blood 06/28/2022 9:53 AM PERSONAL SECRETARY 06/28/2022 9:53 AM PERSONAL SECRETARY Frank Bowers MD LAB POCT ORDERABLES - DEVICE F inal Result Performing Organization Address City/[facility] [place] [address] * POCT glucose (06/28/2022 8:37 AM PERSONAL SECRETARY) Glucose, POC 121 70 - 199 mg/dL [facility] Blood 06/28/2022 8:37 AM PERSONAL SECRETARY 06/28/2022 8:37 AM PERSONAL SECRETARY Frank Bowers MD LAB POCT ORDERABLES - DEVICE F inal Result Performing Organization Address City/[facility] [place] [address] * POCT glucose (06/28/2022 8:20 AM PERSONAL SECRETARY) Glucose, POC 95 70 - 199 mg/dL [facility] Blood 06/28/2022 8:20 AM PERSONAL SECRETARY 06/28/2022 8:20 AM PERSONAL SECRETARY Frank Bowers MD LAB POCT ORDERABLES - DEVICE F inal Result Performing Organization Address City/[facility] [place] [address] * POCT glucose (06/28/2022 8:02 AM PERSONAL SECRETARY) Glucose, POC 75 70 - 199 mg/dL [facility] Blood 06/28/2022 8:02 AM PERSONAL SECRETARY 06/28/2022 8:02 AM PERSONAL SECRETARY Frank Bowers MD LAB POCT ORDERABLES - DEVICE F inal Result Performing Organization Address [facility] de Phone Number [facility] [place] [address] * (ABNORMAL) POCT glucose (06/28/2022 7:41 AM PERSONAL SECRETARY) Glucose, POC 68(L) 70 - 199 mg/dL [facility] Glucose comment 1 Glu2: RN/MD Notified [facility] Blood 06/28/2022 7:41 AM PERSONAL SECRETARY 06/28/2022 7:41 AM PERSONAL SECRETARY Frank Bowers MD LAB POCT ORDERABLES - DEVICE F inal Result Performing Organization Address [facility] de Phone Number [facility] Department [place] [address] * POCT glucose (06/27/2022 7:51 PM PERSONAL SECRETARY) Glucose, POC 199 70 - 199 mg/dL [facility] Blood 06/27/2022 7:51 PM PERSONAL SECRETARY 06/27/2022 7:51 PM PERSONAL SECRETARY Carey East MD LAB POCT ORDERABLES - DEVICE Final Result Performing Organization Address [facility] de Phone Number [facility] [place] [address] * POCT glucose (06/27/2022 4:54 PM PERSONAL SECRETARY) Glucose, POC 143 70 - 199 mg/dL [facility] Blood 06/27/2022 4:54 PM PERSONAL SECRETARY 06/27/2022 4:54 PM PERSONAL SECRETARY Carey East MD LAB POCT ORDERABLES - DEVICE Final Result Performing Organization Address [facility] [place] [address] * (ABNORMAL) POCT glucose (06/27/2022 11:37 AM PERSONAL SECRETARY) Glucose, POC 228(H) 70 - 199 mg/dL [facility] Glucose comment 1 Glu2: RN/MD Notified [facility] Blood 06/27/2022 11:3 7 AM PERSONAL SECRETARY 06/27/2022 11:37 AM PERSONAL SECRETARY Carey East MD LAB POCT ORDERABLES - DEVICE Final Result Performing Organization Address [facility] [place] [address] * (ABNORMAL) POCT glucose (06/27/2022 7:54 AM PERSONAL SECRETARY) Glucose, POC 350(H) 70 - 199 mg/dL [facility] Blood 06/27/2022 7:54 AM PERSONAL SECRETARY 06/27/2022 7:54 AM PERSONAL SECRETARY Carey East MD LAB POCT ORDERABLES - DEVICE Final Result Performing Organization Address [facility] [place] [address] * (ABNORMAL) eGFR (06/27/2022 3:51 AM PERSONAL SECRETARY) eGFR 6(L) 90 - 130 mL/min/1. 73 m2 [facility] Comment: Interpretive Data Reference Interval [...] last reviewed 2021. Blood 06/27/2022 3:51 AM PERSONAL SECRETARY 06/27/2022 4:28 AM PERSONAL SECRETARY us Carey East MD LAB BLOOD ORDERABLES Final Result [facility] Department [place] [address] * (ABNORMAL) CBC without differential (06/27/2022 3:51 AM PERSONAL SECRETARY) WBC 3.8 3.8 - 9.9 K/cumm [facility] Hgb 7.5(L) 13.0 - 17.5 g/dL [facility] Hct 22.8(L) 38.9 - 50.3 % [facility] Plt 294 150 - 400 K/cumm [facility] MPV 10.0 9.1 - 12.3 fL [facility] RBC 2.49(L) 4.30 - 5.80 M/cumm [facility] MCV 91.6 81.3 - 96.4 fL [facility] MCH 30.1 27.1 - 33.3 pg [facility] MCHC 32.9 32.3 - 35.7 g/dL [facility] RDW CV 17.5(H) 11.1 - 14.9 % [facility] RDW SD 57.9(H) 35.7 - 48.1 fL [facility] NRBC abs 0.00 0.00 - 0.01 K/cumm [facility] Blood 06/27/2022 3:51 AM PERSONAL SECRETARY 06/27/2022 4:28 AM PERSONAL SECRETARY us Carey East MD LAB BLOOD ORDERABLES Final Result [facility] Department [place] [address] * (ABNORMAL) Basic metabolic panel (06/27/2022 3:51 AM PERSONAL SECRETARY) Sodium 132(L) 135 - 145 mmol/L [facility] Potassium, pl 3.1(L) 3.3 - 4.9 mmol/L [facility] Chloride 89(L) 97 - 110 mmol/L [facility] CO2 26 22 - 32 mmol/L [facility] Anion gap 17(H) 2 - 15 mmol/L [facility] BUN 46(H) 8 - 25 mg/dL [facility] Creatinine 10.21(H) 0.80 - 1.30 mg/dL [facility] Glucose 274(H) 70 - 199 mg/dL [facility] Comment: Interpretive Data Fasting glucose [...] Calcium 8.4(L) 8.5 - 10.3 mg/dL [facility] Blood 06/27/2022 3:51 AM PERSONAL SECRETARY 06/27/2022 4:28 AM PERSONAL SECRETARY Carey East MD LAB BLOOD ORDERABLES Final Result Performing Organization Address [facility] Co de Phone Number [facility] [place] [place] [address] * (ABNORMAL) POCT glucose (06/27/2022 1:54 AM PERSONAL SECRETARY) Glucose, POC 276(H) 70 - 199 mg/dL [facility] Blood 06/27/2022 1:54 AM PERSONAL SECRETARY 06/27/2022 1:54 AM PERSONAL SECRETARY Carey East MD LAB POCT ORDERABLES - DEVICE Final Result Performing Organization Address [facility] Co de Phone Number [facility] [place] [place] [address] * POCT glucose (06/26/2022 9:14 PM PERSONAL SECRETARY) Glucose, POC 184 70 - 199 mg/dL [facility] Blood 06/26/2022 9:14 PM PERSONAL SECRETARY 06/26/2022 9:14 PM PERSONAL SECRETARY Carey East MD LAB POCT ORDERABLES - DEVICE Final Result Performing Organization Address [facility] de Phone Number [facility] [place] [address] * POCT glucose (06/26/2022 5:53 PM PERSONAL SECRETARY) Glucose, POC 98 70 - 199 mg/dL [facility] Blood 06/26/2022 5:53 PM PERSONAL SECRETARY 06/26/2022 5:53 PM PERSONAL SECRETARY us Carey East MD LAB POCT ORDERABLES - DEVICE Final Result Performing Organization Address [facility] Co de Phone Number [facility] [place] [address] * (ABNORMAL) POCT glucose (06/26/2022 1:16 PM PERSONAL SECRETARY) Glucose, POC 202(H) 70 - 199 mg/dL [facility] Blood 06/26/2022 1:16 PM PERSONAL SECRETARY 06/26/2022 1:16 PM PERSONAL SECRETARY Carey East MD LAB POCT ORDERABLES - DEVICE Final Result Performing Organization Address [facility] [place] [address] * (ABNORMAL) POCT glucose (06/26/2022 11:09 AM PERSONAL SECRETARY) Glucose, POC 320(H) 70 - 199 mg/dL [facility] Glucose comment 1 Glu2: RN/MD Notified [facility] Blood 06/26/2022 11:0 9 AM PERSONAL SECRETARY 06/26/2022 11:09 AM PERSONAL SECRETARY us Carey East MD LAB POCT ORDERABLES - DEVICE Final Result Performing Organization Address [facility] [place] [address] * (ABNORMAL) POCT glucose (06/26/2022 9:07 AM PERSONAL SECRETARY) Glucose, POC 400(H) 70 - 199 mg/dL [facility] Blood 06/26/2022 9:07 AM PERSONAL SECRETARY 06/26/2022 9:07 AM PERSONAL SECRETARY Carey East MD LAB POCT ORDERABLES - DEVICE Final Result Performing Organization Address [facility] Co de Phone Number [facility] [place] [place] [address] * (ABNORMAL) POCT glucose (06/26/2022 7:25 AM PERSONAL SECRETARY) Pathologist [facility] Glucose, POC 393(H) 70 - 199 mg/dL [facility] Glucose comment 1 Glu2: RN/MD Notified [facility] Blood 06/26/2022 7:25 AM PERSONAL SECRETARY 06/26/2022 7:25 AM PERSONAL SECRETARY Carey East MD LAB POCT ORDERABLES - DEVICE Final Result Performing Organization Address [facility] Co de Phone Number [facility] [place] [place] [address] * (ABNORMAL) eGFR (06/26/2022 3:23 AM PERSONAL SECRETARY) [facility] eGFR 5(L) 90 - 130 mL/min/1. 73 m2 [facility] Comment: Interpretive Data Reference Interval [...] last reviewed 2021. Blood 06/26/2022 3:23 AM PERSONAL SECRETARY 06/26/2022 5:00 AM PERSONAL SECRETARY Carey East MD LAB BLOOD ORDERABLES Final Result [facility] Department [place] [address] * (ABNORMAL) CBC without differential (06/26/2022 3:23 AM PERSONAL SECRETARY) WBC 4.1 3.8 - 9.9 K/cumm [facility] Hgb 7.6(L) 13.0 - 17.5 g/dL [facility] Hct 23.3(L) 38.9 - 50.3 % [facility] Plt 250 150 - 400 K/cumm [facility] MPV 10.7 9.1 - 12.3 fL [facility] RBC 2.49(L) 4.30 - 5.80 M/cumm [facility] MCV 93.6 81.3 - 96.4 fL [facility] MCH 30.5 27.1 - 33.3 pg [facility] MCHC 32.6 32.3 - 35.7 g/dL [facility] RDW CV 17.8(H) 11.1 - 14.9 % [facility] RDW SD 59.3(H) 35.7 - 48.1 fL [facility] NRBC abs 0.00 0.00 - 0.01 K/cumm [facility] Blood 06/26/2022 3:23 AM PERSONAL SECRETARY 06/26/2022 5:00 AM PERSONAL SECRETARY Carey East MD LAB BLOOD ORDERABLES Final Result [facility] Department [place] [address] * (ABNORMAL) Basic metabolic panel (06/26/2022 3:23 AM PERSONAL SECRETARY) Pathologist [facility] Sodium 134(L) 135 - 145 mmol/L [facility] Potassium, pl 3.6 3.3 - 4.9 mmol/L [facility] Chloride 91(L) 97 - 110 mmol/L [facility] CO2 26 22 - 32 mmol/L [facility] Anion gap 17(H) 2 - 15 mmol/L [facility] BUN 47(H) 8 - 25 mg/dL [facility] Creatinine 10.28(H) 0.80 - 1.30 mg/dL [facility] Glucose 335(H) 70 - 199 mg/dL [facility] Comment: Interpretive Data Fasting glucose [...] 2017. Calcium 8.5 8.5 - 10.3 mg/dL [facility] Blood 06/26/2022 3:23 AM PERSONAL SECRETARY 06/26/2022 5:00 AM PERSONAL SECRETARY us Carey East MD LAB BLOOD ORDERABLES Final Result [facility] [place] [place] [address] * (ABNORMAL) POCT glucose (06/26/2022 1:32 AM CDT) Glucose, POC 334(H) 70 - 199 mg/dL [facility] Blood 06/26/2022 1:32 AM CDT 06/26/2022 1:32 AM CDT Carey East MD LAB POCT ORDERABLES - DEVICE Final Result Performing Organization Address [facility] Co de Phone Number [facility] [place] [address] * (ABNORMAL) POCT glucose (06/25/2022 9:02 PM CDT) Glucose, POC 257(H) 70 - 199 mg/dL [facility] Blood 06/25/2022 9:02 PM CDT 06/25/2022 9:02 PM CDT Carey East MD LAB POCT ORDERABLES - DEVICE Final Result Performing Organization Address [facility] Co de Phone Number [facility] Department [place] [address] * (ABNORMAL) POCT glucose (06/25/2022 6:30 PM CDT) Glucose, POC 223(H) 70 - 199 mg/dL [facility] Blood 06/25/2022 6:30 PM CDT 06/25/2022 6:30 PM CDT Carey East MD LAB POCT ORDERABLES - DEVICE Final Result Performing Organization Address [facility] Co de Phone Number [facility] [place] [address] * (ABNORMAL) POCT glucose (06/25/2022 4:21 PM CDT) Glucose, POC 241(H) 70 - 199 mg/dL [facility] Glucose comment 1 Glu2: RN/MD Notified [facility] Blood 06/25/2022 4:21 PM CDT 06/25/2022 4:21 PM CDT Carey East MD LAB POCT ORDERABLES - DEVICE Final Result Performing Organization Address [facility] de Phone Number [facility] [place] [address] * (ABNORMAL) POCT glucose (06/25/2022 11:42 AM CDT) [facility] Glucose, POC 296(H) 70 - 199 mg/dL [facility] Glucose comment 1 Glu2: RN/MD Notified [facility] Blood 06/25/2022 11:4 2 AM CDT 06/25/2022 11:42 AM CDT Carey East MD LAB POCT ORDERABLES - DEVICE Final Result Performing Organization Address [facility] de Phone Number [facility] [place] [address] * (ABNORMAL) POCT glucose (06/25/2022 7:42 AM CDT) [facility] Glucose, POC 363(H) 70 - 199 mg/dL [facility] Glucose comment 1 Glu2: RN/MD Notified [facility] Blood 06/25/2022 7:42 AM CDT 06/25/2022 7:42 AM CDT Carey East MD LAB POCT ORDERABLES - DEVICE Final Result Performing Organization Address [facility] [place] [address] * (ABNORMAL) eGFR (06/25/2022 4:36 AM CDT) [facility] eGFR 6(L) 90 - 130 mL/min/1. 73 m2 [facility] Comment: Interpretive Data Reference Interval [...] BLOOD ORDERABLES Final Result Performing Organization Address [facility] Phone Number [facility] Department [place] [address] * (ABNORMAL) Phosphorus (06/25/2022 4:36 AM CDT) Phosphorus, pl 7.9(H) 2.3 - 4.5 mg/dL [facility] Comment:Reviewed Blood 06/25/2022 4:36 AM CDT 06/25/2022 5:15 AM CDT Carey East MD LAB BLOOD ORDERABLES Final Result Performing Organization Address [facility] Co de Phone Number [facility] Department [place] [address] * (ABNORMAL) Basic metabolic panel (06/25/2022 4:36 AM CDT) Sodium 135 135 - 145 mmol/L [facility] Potassium, pl 3.9 3.3 - 4.9 mmol/L [facility] Chloride 93(L) 97 - 110 mmol/L [facility] CO2 28 22 - 32 mmol/L [facility] Anion gap 14 2 - 15 mmol/L [facility] BUN 44(H) 8 - 25 mg/dL [facility] Creatinine 9.57(H) 0.80 - 1.30 mg/dL [facility] Glucose 281(H) 70 - 199 mg/dL [facility] Comment: Interpretive Data Fasting glucose [...] 2017. Calcium 8.6 8.5 - 10.3 mg/dL [facility] Blood 06/25/2022 4:36 AM CDT 06/25/2022 5:15 AM CDT us Carey East MD LAB BLOOD ORDERABLES Final Result Performing Organization Address City/[facility]/ZIP Co de Phone Number [facility]A CARR[facility] Department [place] [address] * (ABNORMAL) POCT glucose (06/25/2022 1:41 AM CDT) Glucose, POC 265(H) 70 - 199 mg/dL [facility] Blood 06/25/2022 1:41 AM CDT 06/25/2022 1:41 AM CDT Carey East MD LAB POCT ORDERABLES - DEVICE Final Result Performing Organization Address [facility] Co de Phone Number [facility] [place] [place] [address] * (ABNORMAL) POCT glucose (06/24/2022 8:01 PM CDT) Glucose, POC 246(H) 70 - 199 mg/dL [facility] Blood 06/24/2022 8:01 PM CDT 06/24/2022 8:01 PM CDT Carey East MD LAB POCT ORDERABLES - DEVICE Final Result Performing Organization Address [facility] Co de Phone Number [facility] Department [place] [address] * POCT glucose (06/24/2022 4:55 PM CDT) Glucose, POC 185 70 - 199 mg/dL [facility] Blood 06/24/2022 4:55 PM CDT 06/24/2022 4:55 PM CDT Carey East MD LAB POCT ORDERABLES - DEVICE Final Result Performing Organization Address [facility] Co de Phone Number [facility] [place] [address] * (ABNORMAL) POCT glucose (06/24/2022 12:53 PM CDT) Glucose, POC 275(H) 70 - 199 mg/dL [facility] Glucose comment 1 Glu2: RN/MD Notified [facility] Blood 06/24/2022 12:5 3 PM CDT 06/24/2022 12:53 PM CDT Carey East MD LAB POCT ORDERABLES - DEVICE Final Result Performing Organization Address [facility] [place] [address] * (ABNORMAL) POCT glucose (06/24/2022 11:31 AM CDT) Glucose, POC 346(H) 70 - 199 mg/dL [facility] Glucose comment 1 Glu2: RN/MD Notified [facility] Blood 06/24/2022 11:3 1 AM CDT 06/24/2022 11:31 AM CDT Carey East MD LAB POCT ORDERABLES - DEVICE Final Result Performing Organization Address [facility] [place] [address] * (ABNORMAL) POCT glucose (06/24/2022 9:54 AM CDT) Glucose, POC 411(H) 70 - 199 mg/dL [facility] Blood 06/24/2022 9:54 AM CDT 06/24/2022 9:54 AM CDT Carey East MD LAB POCT ORDERABLES - DEVICE Final Result Performing Organization Address [facility] [place] [address] * (ABNORMAL) POCT glucose (06/24/2022 7:33 AM CDT) Glucose, POC 415(H) 70 - 199 mg/dL [facility] Glucose comment 1 Glu2: RN/MD Notified [facility] Blood 06/24/2022 7:33 AM CDT 06/24/2022 7:33 AM CDT Carey East MD LAB POCT ORDERABLES - DEVICE Final Result [facility] Department [place] [address] * (ABNORMAL) eGFR (06/24/2022 4:10 AM CDT) Pathologist [facility] eGFR 7(L) 90 - 130 mL/min/1. 73 m2 [facility] Comment: Interpretive Data Reference Interval [...] East MD LAB BLOOD ORDERABLES Final Result [facility] Department [place] [address] * (ABNORMAL) CBC without differential (06/24/2022 4:10 AM CDT) [facility] WBC 4.3 3.8 - 9.9 K/cumm [facility] Hgb 7.9(L) 13.0 - 17.5 g/dL [facility] Hct 24.0(L) 38.9 - 50.3 % [facility] Plt 206 150 - 400 K/cumm [facility] MPV 10.3 9.1 - 12.3 fL [facility] RBC 2.61(L) 4.30 - 5.80 M/cumm [facility] MCV 92.0 81.3 - 96.4 fL [facility] MCH 30.3 27.1 - 33.3 pg [facility] MCHC 32.9 32.3 - 35.7 g/dL [facility] RDW CV 18.5(H) 11.1 - 14.9 % [facility] RDW SD 58.3(H) 35.7 - 48.1 fL [facility] NRBC abs 0.00 0.00 - 0.01 K/cumm [facility] Blood 06/24/2022 4:10 AM CDT 06/24/2022 4:34 AM CDT Carey East MD LAB BLOOD ORDERABLES Final Result Performing Organization Address [facility] Co de Phone Number [facility] Department [place] [address] * (ABNORMAL) Basic metabolic panel (06/24/2022 4:10 AM CDT) [facility] Sodium 134(L) 135 - 145 mmol/L [facility] Potassium, pl 3.9 3.3 - 4.9 mmol/L [facility] Chloride 94(L) 97 - 110 mmol/L [facility] CO2 25 22 - 32 mmol/L [facility] Anion gap 15 2 - 15 mmol/L [facility] BUN 46(H) 8 - 25 mg/dL [facility] Creatinine 8.83(H) 0.80 - 1.30 mg/dL [facility] Glucose 390(H) 70 - 199 mg/dL [facility] Comment: Interpretive Data Fasting glucose [...] 2017. Calcium 8.5 8.5 - 10.3 mg/dL [facility] Blood 06/24/2022 4:10 AM CDT 06/24/2022 4:34 AM CDT Carey East MD LAB BLOOD ORDERABLES Final Result Performing Organization Address City/[facility]/ZIP Co de Phone Number [facility] [place] [address] * (ABNORMAL) POCT glucose (06/24/2022 1:44 AM CDT) [facility] Signature Glucose, POC 389(H) 70 - 199 mg/dL [facility] Blood 06/24/2022 1:44 AM CDT 06/24/2022 1:44 AM CDT Carey East MD LAB POCT ORDERABLES - DEVICE Final Result [facility] Department [place] [address] * (ABNORMAL) POCT glucose (06/24/2022 1:26 AM CDT) Glucose, POC 428(H) 70 - 199 mg/dL [facility] Blood 06/24/2022 1:26 AM CDT 06/24/2022 1:26 AM CDT Carey East MD LAB POCT ORDERABLES - DEVICE Final Result Performing Organization Address [facility] de Phone Number [facility] Department [place] [address] * (ABNORMAL) POCT glucose (06/23/2022 8:49 PM CDT) Glucose, POC 306(H) 70 - 199 mg/dL [facility] Blood 06/23/2022 8:4 9 PM CDT 06/23/2022 8:49 PM CDT Carey East MD LAB POCT ORDERABLES - DEVICE Final Result Performing Organization Address [facility] de Phone Number [facility] [place] [address] * (ABNORMAL) POCT glucose (06/23/2022 7:45 PM CDT) Glucose, POC 284(H) 70 - 199 mg/dL [facility] Blood 06/23/2022 7:45 PM CDT 06/23/2022 7:45 PM CDT Carey East MD LAB POCT ORDERABLES - DEVICE Final Result Performing Organization Address [facility] de Phone Number [facility] [place] [address] * POCT glucose (06/23/2022 5:57 PM CDT) Glucose, POC 180 70 - 199 mg/dL [facility] Blood 06/23/2022 5:57 PM CDT 06/23/2022 5:57 PM CDT Carey East MD LAB POCT ORDERABLES - DEVICE Final Result Performing Organization Address [facility] Co de Phone Number [facility] [place] [address] * POCT glucose (06/23/2022 4:48 PM CDT) Glucose, POC 152 70 - 199 mg/dL [facility] Blood 06/23/2022 4:48 PM CDT 06/23/2022 4:48 PM CDT Carey East MD LAB POCT ORDERABLES - DEVICE Final Result Performing Organization Address [facility] de Phone Number [facility] [place] [address] * POCT glucose (06/23/2022 3:43 PM CDT) Glucose, POC 174 70 - 199 mg/dL [facility] Blood 06/23/2022 3:43 PM CDT 06/23/2022 3:43 PM CDT Carey East MD LAB POCT ORDERABLES - DEVICE Final Result Performing Organization Address [facility] de Phone Number [facility] [place] [address] * (ABNORMAL) POCT glucose (06/23/2022 3:01 PM CDT) Glucose, POC 66(L) 70 - 199 mg/dL [facility] Blood 06/23/2022 3:01 PM CDT 06/23/2022 3:01 PM CDT us Carey East MD LAB POCT ORDERABLES - DEVICE Final Result Performing Organization Address [facility] Co de Phone Number ALESSANDRA CARRION [facility] [place] [address] * (ABNORMAL) eGFR (06/23/2022 2:35 PM CDT) eGFR 7(L) 90 - 130 mL/min/1. 73 m2 [facility] Comment: Interpretive Data Reference Interval [...] BLOOD ORDERABLES Final Result Performing Organization Address City/[facility] Co de Phone Number ALESSANDRA CARRION [facility] Department [place] [address] * (ABNORMAL) Basic metabolic panel (06/23/2022 2:35 PM CDT) Pathologist [facility] Sodium 137 135 - 145 mmol/L [facility] Potassium, pl 3.6 3.3 - 4.9 mmol/L [facility] Chloride 96(L) 97 - 110 mmol/L [facility] CO2 25 22 - 32 mmol/L [facility] Anion gap 16(H) 2 - 15 mmol/L [facility] BUN 45(H) 8 - 25 mg/dL [facility] Creatinine 8.33(H) 0.80 - 1.30 mg/dL [facility] Glucose 55(L) 70 - 199 mg/dL [facility] Comment: Interpretive Data Fasting glucose [...] 2017. Calcium 8.3(L) 8.5 - 10.3 mg/dL [facility] Blood 06/23/2022 2:35 PM CDT 06/23/2022 3:04 PM CDT us Carey East MD LAB BLOOD ORDERABLES Final Result [facility] Department [place] [address] * Differential, auto (06/23/2022 2:34 PM CDT) Pathologist [facility] Neutrophil abs 2.7 1.7 - 6.5 K/cumm [facility] Imm gran abs 0.0 0.0 - 0.1 K/cumm [facility] Lymphocyte abs 1.3 0.8 - 3.3 K/cumm [facility] Monocyte abs 0.8 0.2 - 0.8 K/cumm [facility] Eosinophil abs 0.5 0.0 - 0.5 K/cumm [facility] Basophil abs 0.0 0.0 - 0.1 K/cumm [facility] Neutrophil pct 50.3 % [facility] Comment: Interpretive Data Percent cell count reference ranges are not reported, since discordance with absolute values may lead to misinterpretation of CBC data. Current Interpretive Data was last revised on 2017. Imm gran pct 0.6 % [facility] Comment: Interpretive Data Percent cell count reference ranges are not reported, since discordance with absolute values may lead to misinterpretation of CBC data. Current Interpretive Data was last revised on 2017. Lymphocyte pct 23.7 % [facility] Comment: Interpretive Data Percent cell count reference ranges are not reported, since discordance with absolute values may lead to misinterpretation of CBC data. Current Interpretive Data was last revised on 2017. Monocyte pct 15.5 % [facility] Comment: Interpretive Data Percent cell count reference ranges are not reported, since discordance with absolute values may lead to misinterpretation of CBC data. Current Interpretive Data was last revised on 2017. Eosinophil pct 9.2 % [facility] Comment: Interpretive Data Percent cell count reference ranges are not reported, since discordance with absolute values may lead to misinterpretation of CBC data. Current Interpretive Data was last revised on 2017. Basophil pct 0.7 % [facility] Comment: Interpretive Data Percent cell count reference ranges are not reported, since discordance with absolute values may lead to misinterpretation of CBC data. Current Interpretive Data was last revised on 2017. Blood 06/23/2022 2:34 PM CDT 06/23/2022 3:14 PM CDT us Carey East MD LAB BLOOD ORDERABLES Final Result [facility] Department [place] [address] * (ABNORMAL) CBC with auto differential (06/23/2022 2:34 PM CDT) [facility] WBC 5.4 3.8 - 9.9 K/cumm [facility] Hgb 8.2(L) 13.0 - 17.5 g/dL [facility] Comment:Consistent with ita ent history. Hct 25.2(L) 38.9 - 50.3 % [facility] Plt 215 150 - 400 K/cumm [facility] MPV 10.2 9.1 - 12.3 fL [facility] RBC 2.71(L) 4.30 - 5.80 M/cumm [facility] MCV 93.0 81.3 - 96.4 fL [facility] MCH 30.3 27.1 - 33.3 pg [facility] MCHC 32.5 32.3 - 35.7 g/dL [facility] RDW CV 18.7(H) 11.1 - 14.9 % [facility] RDW SD 57.2(H) 35.7 - 48.1 fL [facility] NRBC abs 0.00 0.00 - 0.01 K/cumm [facility] Blood 06/23/2022 2:34 PM CDT 06/23/2022 3:14 PM CDT us Carey East MD LAB BLOOD ORDERABLES Final Result [facility] Department [place] [address] * (ABNORMAL) Troponin I high-sensitivity 2-hour (06/23/2022 2:34 PM CDT) [facility] Trop I hs 3,636(C) <=35 ng/L [facility] Comment: Previous critical value noted within 48 hours ago. Interpretive Data For further hscTnI resources including the diagnostic algorithm and an aid in interpretation, copy and paste this link: https://bjhlab.testcatalog.org/show/hsTrop-1 Current Interpretive Data last revised 2020. Trop I hs delta See Comment ng/L [facility]ESSANDRA [facility] Comment:Inappropriate collec tion time to report a delta. Trop I hs pct delta See Comment % ALESSANDRA [facility] Comment:Inappropriate collec tion time to report a delta. Trop I hs interp See Comment [facility] Comment:Inappropriate collec tion time to report a delta. Blood 06/23/2022 2:34 PM CDT 06/23/2022 3:14 PM CDT Carey East MD LAB BLOOD ORDERABLES Final Result Performing Organization Address City/[facility]/ZIP Co de Phone Number [facility] Department [place] [address] * (ABNORMAL) POCT glucose (06/23/2022 2:25 PM CDT) Glucose, POC 69(L) 70 - 199 mg/dL [facility] Blood 06/23/2022 2:25 PM CDT 06/23/2022 2:25 PM CDT Carey East MD LAB POCT ORDERABLES - DEVICE Final Result Performing Organization Address [facility] Co de Phone Number [facility] Department [place] [address] * Critical result callback Cardio chemistry (06/23/2022 2:01 PM CDT) Date Notified [id number] [facility] Time Notified 1454 [facility] Test name Trop I hs base [facility]DRA [facility] Called/Read Back Fartun APARICIO [facility] Credentials RN [facility]DRA [facility] Called By karen APARICIO [facility] Blood 06/23/2022 2:01 PM CDT 06/23/2022 2:16 PM CDT Carey East MD LAB BLOOD ORDERABLES Final Result Performing Organization Address City/[facility]/ZIP Co de Phone Number ALESSANDRA CARRION [facility] Department [place] [address] * (ABNORMAL) eGFR (06/23/2022 2:01 PM CDT) eGFR 7(L) 90 - 130 mL/min/1. 73 m2 [facility] Comment: Interpretive Data Reference Interval Normal ?>/= [...] 2:01 PM CDT 06/23/2022 2:16 PM CDT us Carey East MD LAB BLOOD ORDERABLES Final Result Performing Organization Address [facility] Co de Phone Number ALESSANDRA CARRION [facility] Department [place] [address] * (ABNORMAL) Troponin I high-sensitivity series (baseline, 2hr, 4hr, 6hr) (06/23/2022 2:01 PM CDT) Trop I hs 3,653(C) <=35 ng/L [facility] Comment: Interpretive Data For further [facility] resources including the diagnostic algorithm and an aid in interpretation, copy and paste this link: https://bjhlab.testcatalog.org/show/hsTrop-[email or web address] Current Interpretive Data last revised 2020. Blood 06/23/2022 2:01 PM CDT 06/23/2022 2:16 PM CDT Carey East MD LAB BLOOD ORDERABLES Final Result Performing Organization Address City/[facility] Co de Phone Number [facility] Department [place] [address] * (ABNORMAL) Phosphorus (06/23/2022 2:01 PM CDT) [facility] Phosphorus, pl 5.2(H) 2.3 - 4.5 mg/dL [facility] Blood 06/23/2022 2:01 PM CDT 06/23/2022 2:16 PM CDT Carey East MD LAB BLOOD ORDERABLES Final Result Performing Organization Address City/[facility]/ZIP Co de Phone Number [facility] Department [place] [address] * (ABNORMAL) Magnesium (06/23/2022 2:01 PM CDT) Pathologist [facility] Magnesium 2.8(H) 1.4 - 2.5 mg/dL [facility] Blood 06/23/2022 2:01 PM CDT 06/23/2022 2:16 PM CDT Carey East MD LAB BLOOD ORDERABLES Final Result Performing Organization Address City/[facility]/ZIP Co de Phone Number [facility] Department [place] [address] * (ABNORMAL) CBC without differential (06/23/2022 2:01 PM CDT) [facility] WBC 5.9 3.8 - 9.9 K/cumm [facility] Hgb 4.6(C) 13.0 - 17.5 g/dL [facility] Comment:Critical result call ed to and read back by MOUSTAPHA RAMSAY(RN) on 06 23 2022 at 1428 to Erin Kidd. Hct 14.2(L) 38.9 - 50.3 % [facility] Plt 253 150 - 400 K/cumm [facility] MPV 10.1 9.1 - 12.3 fL [facility] RBC 1.51(L) 4.30 - 5.80 M/cumm [facility] MCV 94.0 81.3 - 96.4 fL [facility] MCH 30.5 27.1 - 33.3 pg [facility] MCHC 32.4 32.3 - 35.7 g/dL [facility] RDW CV 18.4(H) 11.1 - 14.9 % [facility] RDW SD 58.0(H) 35.7 - 48.1 fL [facility] NRBC abs 0.00 0.00 - 0.01 K/cumm [facility] Blood 06/23/2022 2:01 PM CDT 06/23/2022 2:17 PM CDT Narrative [facility] - 06/23/2022 2:29 PM CDT While on heparin infusion us Carey East MD LAB BLOOD ORDERABLES Final Result [facility] Department [place] [address] * (ABNORMAL) Basic metabolic panel (06/23/2022 2:01 PM CDT) [facility] Sodium 136 135 - 145 mmol/L [facility] Potassium, pl 3.4 3.3 - 4.9 mmol/L [facility] Chloride 96(L) 97 - 110 mmol/L [facility] CO2 25 22 - 32 mmol/L [facility] Anion gap 15 2 - 15 mmol/L [facility] BUN 45(H) 8 - 25 mg/dL [facility] Creatinine 8.21(H) 0.80 - 1.30 mg/dL [facility] Glucose 60(L) 70 - 199 mg/dL [facility] Comment: Interpretive Data Fasting glucose [...] 2017. Calcium 8.3(L) 8.5 - 10.3 mg/dL [facility] Blood 06/23/2022 2:01 PM CDT 06/23/2022 2:16 PM CDT Carey East MD LAB BLOOD ORDERABLES Final Result Performing Organization Address [facility]/ZIP Co de Phone Number [facility] [place] [address] * POCT glucose (06/23/2022 1:42 PM CDT) Glucose, POC 79 70 - 199 mg/dL [facility] Blood 06/23/2022 1:42 PM CDT 06/23/2022 1:42 PM CDT Carey East MD LAB POCT ORDERABLES - DEVICE Final Result Performing Organization Address City/[facility]/ZIP Co de Phone Number [facility] [place] [address] * ECG 12 lead (06/23/2022 1:30 PM CDT) [facility] Ventricular Rate EKG/Min 100 BPM [facility] Atrial Rate 100 BPM [facility] AR-Interval (MSEC) 182 ms [facility] QRS-Interval (MSEC) 106 ms [facility] QT-Interval (MSEC) 380 ms [facility] QTc 490 ms [facility] R [place] -47 degrees [facility] T [place] 105 degrees [facility] Diagnosis Sinus rhythm with Premature supraventricular complexes [...] SAL M.D ([id number]) on 06/23/2022 4:28:23 PM [facility] 06/23/2022 1:30 PM CDT 06/23/2022 4:28 PM CDT Carey East MD ECG ORDERABLES Ann Marie l Result [facility] * POCT glucose (06/23/2022 1:20 PM CDT) [facility] Glucose, POC 88 70 - 199 mg/dL [facility] Blood 06/23/2022 1:20 PM CDT 06/23/2022 1:20 PM CDT Carey East MD LAB POCT ORDERABLES - DEVICE Final Result [facility] Department [place] [address] * POCT glucose (06/23/2022 11:48 AM CDT) Glucose, POC 163 70 - 199 mg/dL [facility] Blood 06/23/2022 11:4 8 AM CDT 06/23/2022 11:48 AM CDT us Carey East MD LAB POCT ORDERABLES - DEVICE Final Result [facility] Department [place] [address] * (ABNORMAL) POCT glucose (06/23/2022 7:28 AM CDT) Glucose, POC 320(H) 70 - 199 mg/dL [facility] Blood 06/23/2022 7:28 AM CDT 06/23/2022 7:28 AM CDT us Catherine Adams MD LAB POCT ORDERABLES - DEVIC E Final Result Performing Organization Address City/[facility]/ZIP Co de Phone Number [facility] Department [place] [address] * (ABNORMAL) Magnesium (06/23/2022 4:21 AM CDT) Magnesium 2.9(H) 1.4 - 2.5 mg/dL [facility] Blood 06/23/2022 4:21 AM CDT 06/23/2022 5:58 AM CDT us Luiz Lewis DO LAB BLOOD ORDERABLES Final Res ult [facility] [place] [address] * (ABNORMAL) CBC without differential (06/23/2022 4:21 AM CDT) WBC 4.4 3.8 - 9.9 K/cumm [facility] Hgb 8.1(L) 13.0 - 17.5 g/dL [facility] Hct 25.8(L) 38.9 - 50.3 % [facility] Plt 206 150 - 400 K/cumm [facility] MPV 10.4 9.1 - 12.3 fL [facility] RBC 2.76(L) 4.30 - 5.80 M/cumm [facility] MCV 93.5 81.3 - 96.4 fL [facility] MCH 29.3 27.1 - 33.3 pg [facility] MCHC 31.4(L) 32.3 - 35.7 g/dL [facility] RDW CV 18.8(H) 11.1 - 14.9 % [facility] RDW SD 58.8(H) 35.7 - 48.1 fL [facility] NRBC abs 0.00 0.00 - 0.01 K/cumm [facility] Blood 06/23/2022 4:21 AM CDT 06/23/2022 5:58 AM CDT Narrative [facility] - 06/23/2022 6:08 AM CDT While on heparin infusion us Luiz Lewis DO LAB BLOOD ORDERABLES Final Res ult [facility] [place] [address] * (ABNORMAL) POCT glucose (06/23/2022 1:38 AM CDT) [facility] Glucose, POC 244(H) 70 - 199 mg/dL [facility] Blood 06/23/2022 1:38 AM CDT 06/23/2022 1:38 AM CDT us Catherine Adams MD LAB POCT ORDERABLES - DEVIC E Final Result [facility] Department [place] [address] * (ABNORMAL) Phosphorus (06/22/2022 9:28 PM CDT) [facility] Phosphorus, pl 5.8(H) 2.3 - 4.5 mg/dL [facility] Blood 06/22/2022 9:28 PM CDT 06/22/2022 10:27 PM CDT Catherine Adams MD LAB BLOOD ORDERABLES Final Result Performing Organization Address City/[facility]/ZIP Co de Phone Number [facility] Department [place] [address] * POCT glucose (06/22/2022 9:14 PM CDT) [facility] Glucose, POC 176 70 - 199 mg/dL [facility] Blood 06/22/2022 9:14 PM CDT 06/22/2022 9:14 PM CDT Catherine Adams MD LAB POCT ORDERABLES - DEVIC E Final Result Performing Organization Address City/[facility] Co de Phone Number [facility] Department [place] [address] * POCT glucose (06/22/2022 5:37 PM CDT) [facility] Glucose, POC 88 70 - 199 mg/dL [facility] Blood 06/22/2022 5:37 PM CDT 06/22/2022 5:37 PM CDT Catherine Adams MD LAB POCT ORDERABLES - DEVIC E Final Result Performing Organization Address City/[facility] Co de Phone Number [facility] Department [place] [address] * (ABNORMAL) eGFR (06/22/2022 3:21 PM CDT) [facility] eGFR 8(L) 90 - 130 mL/min/1. 73 m2 [facility] Comment: Interpretive Data Reference Interval [...] 06/22/2022 3:52 PM CDT us Marcelina Lo PRODUCT MANAGEMENT SPECIALIST LAB BLOOD ORDERABLES Final Re sult [facility] Department [place] [address] * Differential, auto (06/22/2022 3:21 PM CDT) [facility] Neutrophil abs 2.5 1.7 - 6.5 K/cumm [facility] Imm gran abs 0.0 0.0 - 0.1 K/cumm [facility] Lymphocyte abs 1.2 0.8 - 3.3 K/cumm [facility] Monocyte abs 0.8 0.2 - 0.8 K/cumm [facility] Eosinophil abs 0.5 0.0 - 0.5 K/cumm [facility] Basophil abs 0.0 0.0 - 0.1 K/cumm [facility] Neutrophil pct 51.2 % [facility] Comment: Interpretive Data Percent cell count reference ranges are not reported, since discordance with absolute values may lead to misinterpretation of CBC data. Current Interpretive Data was last revised on 2017. Imm gran pct 0.4 % [facility] Comment: Interpretive Data Percent cell count reference ranges are not reported, since discordance with absolute values may lead to misinterpretation of CBC data. Current Interpretive Data was last revised on 2017. Lymphocyte pct 23.3 % [facility] Comment: Interpretive Data Percent cell count reference ranges are not reported, since discordance with absolute values may lead to misinterpretation of CBC data. Current Interpretive Data was last revised on 2017. Monocyte pct 15.4 % [facility] Comment: Interpretive Data Percent cell count reference ranges are not reported, since discordance with absolute values may lead to misinterpretation of CBC data. Current Interpretive Data was last revised on 2017. Eosinophil pct 9.3 % [facility] Comment: Interpretive Data Percent cell count reference ranges are not reported, since discordance with absolute values may lead to misinterpretation of CBC data. Current Interpretive Data was last revised on 2017. Basophil pct 0.4 % [facility] Comment: Interpretive Data Percent cell count reference ranges are not reported, since discordance with absolute values may lead to misinterpretation of CBC data. Current Interpretive Data was last revised on 2017. Blood 06/22/2022 3:21 PM CDT 06/22/2022 3:52 PM CDT us Catherine Adams MD LAB BLOOD ORDERABLES Final Result [facility] Department [place] [address] * (ABNORMAL) CBC with auto differential (06/22/2022 3:21 PM CDT) WBC 4.9 3.8 - 9.9 K/cumm [facility] Hgb 7.8(L) 13.0 - 17.5 g/dL [facility] Hct 24.1(L) 38.9 - 50.3 % [facility] Plt 183 150 - 400 K/cumm [facility] MPV 10.2 9.1 - 12.3 fL [facility] RBC 2.54(L) 4.30 - 5.80 M/cumm [facility] MCV 94.9 81.3 - 96.4 fL [facility] MCH 30.7 27.1 - 33.3 pg [facility] MCHC 32.4 32.3 - 35.7 g/dL [facility] RDW CV 18.5(H) 11.1 - 14.9 % [facility] RDW SD 58.2(H) 35.7 - 48.1 fL [facility] NRBC abs 0.00 0.00 - 0.01 K/cumm [facility] Blood 06/22/2022 3:21 PM CDT 06/22/2022 3:52 PM CDT us Catherine Adams MD LAB BLOOD ORDERABLES Final Result [facility] [place] [address] * (ABNORMAL) Magnesium (06/22/2022 3:21 PM CDT) Pathologist [facility] Magnesium 2.9(H) 1.4 - 2.5 mg/dL [facility] Blood 06/22/2022 3:21 PM CDT 06/22/2022 3:52 PM CDT us Marcelina Lo NP LAB BLOOD ORDERABLES Final Re sult [facility] [place] [address] * (ABNORMAL) Comprehensive metabolic panel (06/22/2022 3:21 PM CDT) Sodium 138 135 - 145 mmol/L [facility] Potassium, pl 3.7 3.3 - 4.9 mmol/L [facility] Chloride 99 97 - 110 mmol/L [facility] CO2 27 22 - 32 mmol/L [facility] Anion gap 12 2 - 15 mmol/L [facility] BUN 42(H) 8 - 25 mg/dL [facility] Creatinine 7.25(H) 0.80 - 1.30 mg/dL [facility] Glucose 103 70 - 199 mg/dL [facility] Comment: Interpretive Data Fasting glucose [...] 2017. Calcium 8.6 8.5 - 10.3 mg/dL [facility] Bilirubin, total 0.4 0.1 - 1.2 mg/dL [facility] Protein, pl 6.1(L) 6.5 - 8.5 g/dL [facility] Albumin 2.9(L) 3.5 - 5.0 g/dL [facility] Alk phos 112 40 - 130 Units/L [facility] ALT 31 7 - 55 Units/L [facility] AST 41 10 - 50 Units/L [facility] Blood 06/22/2022 3:21 PM CDT 06/22/2022 3:52 PM CDT us Marcelina Lo NP LAB BLOOD ORDERABLES Final Re sult [facility] Department [place] [address] * POCT glucose (06/22/2022 11:38 AM CDT) Glucose, POC 162 70 - 199 mg/dL [facility] Blood 06/22/2022 11:3 8 AM CDT 06/22/2022 11:38 AM CDT Catherine Adams MD LAB POCT ORDERABLES - DEVIC E Final Result Performing Organization Address City/[facility] Co de Phone Number [place] [address] * POCT glucose (06/22/2022 10:46 AM CDT) Glucose, POC 197 70 - 199 mg/dL [facility] Blood 06/22/2022 10:4 6 AM CDT 06/22/2022 10:46 AM CDT Catherine Adams MD LAB POCT ORDERABLES - DEVIC E Final Result Performing Organization Address City/[facility] Co de Phone Number [facility] Department [place] [address] * (ABNORMAL) POCT glucose (06/22/2022 9:07 AM CDT) Glucose, POC 313(H) 70 - 199 mg/dL [facility] Blood 06/22/2022 9:07 AM CDT 06/22/2022 9:07 AM CDT us Catherine Adams MD LAB POCT ORDERABLES - DEVIC E Final Result Performing Organization Address City/[facility] Co de Phone Number [facility] [place] [address] * (ABNORMAL) POCT glucose (06/22/2022 7:40 AM CDT) Glucose, POC 364(H) 70 - 199 mg/dL [facility] Blood 06/22/2022 7:40 AM CDT 06/22/2022 7:40 AM CDT us Catherine Adams MD LAB POCT ORDERABLES - DEVIC E Final Result Performing Organization Address [facility] Co de Phone Number [facility] Department [place] [address] * (ABNORMAL) POCT glucose (06/22/2022 7:38 AM CDT) Glucose, POC 318(H) 70 - 199 mg/dL [facility] Blood 06/22/2022 7:38 AM CDT 06/22/2022 7:38 AM CDT us Catherine Adams MD LAB POCT ORDERABLES - DEVIC E Final Result Performing Organization Address [facility] de Phone Number [facility] Department [place] [address] * (ABNORMAL) POCT glucose (06/22/2022 5:54 AM CDT) Glucose, POC 370(H) 70 - 199 mg/dL [facility] Blood 06/22/2022 5:54 AM CDT 06/22/2022 5:54 AM CDT Catherine Adams MD LAB POCT ORDERABLES - DEVIC E Final Result Performing Organization Address City/[facility] de Phone Number [facility] [place] [address] * (ABNORMAL) eGFR (06/21/2022 9:55 PM CDT) eGFR 10(L) 90 - 130 mL/min/1. 73 m2 [facility] Comment: Interpretive Data Reference Interval [...] 06/21/2022 10:14 PM CDT us Marcelina Lo PRODUCT MANAGEMENT SPECIALIST LAB BLOOD ORDERABLES Final Re sult [facility] Department [place] [address] * Differential, auto (06/21/2022 9:55 PM CDT) Neutrophil abs 3.7 1.7 - 6.5 K/cumm [facility] Imm gran abs 0.0 0.0 - 0.1 K/cumm [facility] Lymphocyte abs 1.0 0.8 - 3.3 K/cumm [facility] Monocyte abs 0.8 0.2 - 0.8 K/cumm [facility] Eosinophil abs 0.3 0.0 - 0.5 K/cumm [facility] Basophil abs 0.0 0.0 - 0.1 K/cumm [facility] Neutrophil pct 63.3 % [facility] Comment: Interpretive Data Percent cell count reference ranges are not reported, since discordance with absolute values may lead to misinterpretation of CBC data. Current Interpretive Data was last revised on 2017. Imm gran pct 0.5 % [facility] Comment: Interpretive Data Percent cell count reference ranges are not reported, since discordance with absolute values may lead to misinterpretation of CBC data. Current Interpretive Data was last revised on 2017. Lymphocyte pct 16.3 % [facility] Comment: Interpretive Data Percent cell count reference ranges are not reported, since discordance with absolute values may lead to misinterpretation of CBC data. Current Interpretive Data was last revised on 2017. Monocyte pct 14.3 % [facility] Comment: Interpretive Data Percent cell count reference ranges are not reported, since discordance with absolute values may lead to misinterpretation of CBC data. Current Interpretive Data was last revised on 2017. Eosinophil pct 5.1 % [facility] Comment: Interpretive Data Percent cell count reference ranges are not reported, since discordance with absolute values may lead to misinterpretation of CBC data. Current Interpretive Data was last revised on 2017. Basophil pct 0.5 % [facility] Comment: Interpretive Data Percent cell count reference ranges are not reported, since discordance with absolute values may lead to misinterpretation of CBC data. Current Interpretive Data was last revised on 2017. Blood 06/21/2022 9:55 PM CDT 06/21/2022 10:14 PM CDT us Catherine Adams MD LAB BLOOD ORDERABLES Final Result [facility] Department [place] [address] * (ABNORMAL) POCT glucose (06/21/2022 9:55 PM CDT) Glucose, POC 272(H) 70 - 199 mg/dL [facility] Blood 06/21/2022 9:55 PM CDT 06/21/2022 9:[address] [facility] Catherine Adams MD LAB POCT ORDERABLES - DEVIC E Final Result Performing Organization Address [facility] Co de Phone Number [facility] [place] [address] * (ABNORMAL) CBC with auto differential (06/21/2022 9:55 PM CDT) [facility] WBC 5.9 3.8 - 9.9 K/cumm [facility] Hgb 7.5(L) 13.0 - 17.5 g/dL [facility] Hct 23.6(L) 38.9 - 50.3 % [facility] Plt 174 150 - 400 K/cumm [facility] MPV 9.7 9.1 - 12.3 fL [facility] RBC 2.51(L) 4.30 - 5.80 M/cumm [facility] MCV 94.0 81.3 - 96.4 fL [facility] MCH 29.9 27.1 - 33.3 pg [facility] MCHC 31.8(L) 32.3 - 35.7 g/dL [facility] RDW CV 18.9(H) 11.1 - 14.9 % [facility] RDW SD 60.0(H) 35.7 - 48.1 fL [facility] NRBC abs 0.02(H) 0.00 - 0.01 K/cumm [facility] Blood 06/21/2022 9:55 PM CDT 06/21/2022 10:14 PM CDT Catherine Adams MD LAB BLOOD ORDERABLES Final Result Performing Organization Address City/[facility]/ZIP Co de Phone Number [facility] [place] [address] * Lactate (06/21/2022 9:55 PM CDT) Lactate 0.8 0.7 - 2.0 mmol/L [facility] Blood 06/21/2022 9:55 PM CDT 06/21/2022 10:14 PM CDT Catherine Adams MD LAB BLOOD ORDERABLES Final Result [facility] Department [place] [address] * (ABNORMAL) Triglycerides (06/21/2022 9:55 PM CDT) Triglycerides 183(H) <=149 mg/dL [facility] Comment: Interpretive Data Ages < [...] PM CDT 06/21/2022 10:15 PM CDT Narrative [facility] - 06/21/2022 10:45 PM CDT While on propofol infusion. us Catherine Adams MD LAB BLOOD ORDERABLES Final Result Performing Organization Address [facility] Co de Phone Number [facility] [place] [place] [address] * (ABNORMAL) Phosphorus (06/21/2022 9:55 PM CDT) Phosphorus, pl 4.8(H) 2.3 - 4.5 mg/dL [facility] Blood 06/21/2022 9:55 PM CDT 06/21/2022 10:15 PM CDT us Marcelina Lo PRODUCT MANAGEMENT SPECIALIST LAB BLOOD ORDERABLES Final Re sult Performing Organization Address [facility] de Phone Number [facility] [place] [place] [address] * (ABNORMAL) Lipase (06/21/2022 9:55 PM CDT) Lipase 227(H) 10 - 99 Units/L [facility] Blood 06/21/2022 9:55 PM CDT 06/21/2022 10:15 PM CDT Marcelina Lo PRODUCT MANAGEMENT SPECIALIST LAB BLOOD ORDERABLES Final Re sult Performing Organization Address [facility] Co de Phone Number [facility] [place] [place] [address] * (ABNORMAL) Magnesium (06/21/2022 9:55 PM CDT) Magnesium 2.8(H) 1.4 - 2.5 mg/dL [facility] Blood 06/21/2022 9:55 PM CDT 06/21/2022 10:14 PM CDT Marcelina Lo PRODUCT MANAGEMENT SPECIALIST LAB BLOOD ORDERABLES Final Re sult Performing Organization Address [facility]/ZIP Co de Phone Number [facility] Department [place] [address] * (ABNORMAL) Comprehensive metabolic panel (06/21/2022 9:55 PM CDT) Sodium 136 135 - 145 mmol/L [facility] Potassium, pl 4.0 3.3 - 4.9 mmol/L [facility] Chloride 98 97 - 110 mmol/L [facility] CO2 24 22 - 32 mmol/L [facility] Anion gap 14 2 - 15 mmol/L [facility] BUN 41(H) 8 - 25 mg/dL [facility] Creatinine 6.03(H) 0.80 - 1.30 mg/dL [facility] Glucose 276(H) 70 - 199 mg/dL [facility] Comment: Interpretive Data Fasting glucose [...] 2017. Calcium 8.4(L) 8.5 - 10.3 mg/dL [facility] Bilirubin, total 0.5 0.1 - 1.2 mg/dL [facility] Protein, pl 5.9(L) 6.5 - 8.5 g/dL [facility] Albumin 2.7(L) 3.5 - 5.0 g/dL [facility] Alk phos 111 40 - 130 Units/L [facility] ALT 32 7 - 55 Units/L [facility] AST 48 10 - 50 Units/L [facility] Blood 06/21/2022 9:55 PM CDT 06/21/2022 10:14 PM CDT us Marcelina Lo PRODUCT MANAGEMENT SPECIALIST LAB BLOOD ORDERABLES Final Re sult [facility] Department [place] [address] * (ABNORMAL) Differential, auto (06/21/2022 5:23 PM CDT) Neutrophil abs 4.1 1.7 - 6.5 K/cumm [facility] Imm gran abs 0.1 0.0 - 0.1 K/cumm [facility] Lymphocyte abs 1.2 0.8 - 3.3 K/cumm [facility] Monocyte abs 0.9(H) 0.2 - 0.8 K/cumm [facility] Eosinophil abs 0.3 0.0 - 0.5 K/cumm [facility] Basophil abs 0.0 0.0 - 0.1 K/cumm [facility] Neutrophil pct 62.4 % [facility] Comment: Interpretive Data Percent cell count reference ranges are not reported, since discordance with absolute values may lead to misinterpretation of CBC data. Current Interpretive Data was last revised on 2017. Imm gran pct 0.8 % [facility] Comment: Interpretive Data Percent cell count reference ranges are not reported, since discordance with absolute values may lead to misinterpretation of CBC data. Current Interpretive Data was last revised on 2017. Lymphocyte pct 18.5 % [facility] Comment: Interpretive Data Percent cell count reference ranges are not reported, since discordance with absolute values may lead to misinterpretation of CBC data. Current Interpretive Data was last revised on 2017. Monocyte pct 13.7 % [facility] Comment: Interpretive Data Percent cell count reference ranges are not reported, since discordance with absolute values may lead to misinterpretation of CBC data. Current Interpretive Data was last revised on 2017. Eosinophil pct 4.0 % [facility] Comment: Interpretive Data Percent cell count reference ranges are not reported, since discordance with absolute values may lead to misinterpretation of CBC data. Current Interpretive Data was last revised on 2017. Basophil pct 0.6 % [facility] Comment: Interpretive Data Percent cell count reference ranges are not reported, since discordance with absolute values may lead to misinterpretation of CBC data. Current Interpretive Data was last revised on 2017. Blood 06/21/2022 5:23 PM CDT 06/21/2022 5:45 PM CDT Catherine Adams MD LAB BLOOD ORDERABLES Final Result Performing Organization Address [facility] Co de Phone Number [facility] [place] [address] * (ABNORMAL) CBC with auto differential (06/21/2022 5:23 PM CDT) Pathologist [facility] WBC 6.5 3.8 - 9.9 K/cumm [facility] Hgb 7.5(L) 13.0 - 17.5 g/dL [facility] Hct 23.0(L) 38.9 - 50.3 % [facility] Plt 177 150 - 400 K/cumm [facility] MPV 9.8 9.1 - 12.3 fL [facility] RBC 2.44(L) 4.30 - 5.80 M/cumm [facility] MCV 94.3 81.3 - 96.4 fL [facility] MCH 30.7 27.1 - 33.3 pg [facility] MCHC 32.6 32.3 - 35.7 g/dL [facility] RDW CV 19.0(H) 11.1 - 14.9 % [facility] RDW SD 60.9(H) 35.7 - 48.1 fL [facility] NRBC abs 0.00 0.00 - 0.01 K/cumm [facility] Blood 06/21/2022 5:23 PM CDT 06/21/2022 5:45 PM CDT Catherine Adams MD LAB BLOOD ORDERABLES Final Result Performing Organization Address City/[facility]/ZIP Co de Phone Number [facility] [place] [place] [address] * POCT glucose (06/21/2022 4:08 PM CDT) Glucose, POC 138 70 - 199 mg/dL [facility] Blood 06/21/2022 4:08 PM CDT 06/21/2022 4:08 PM CDT us Catherine Adams MD LAB POCT ORDERABLES - DEVIC E Final Result [facility] Department [place] [address] * [place] Modified Barium Swallow W Video [...] MD IMG FLUOROSCOPY PROCEDURES Final Result * OFFICE CLERK ROUTINE Evaluate and Treat (VFSS) (06/21/2022 2:02 PM CDT) Narrative Aleida Lambert SLP - 06/21/2022 2:02 PM CDT Aleida Lambert SLP ? 06/21/2022 ??4:21 PM Speech-Language Pathology: Videofluoroscopic [...] reported General Information Adelia Garvin Jr. 06/21/22 OFFICE CLERK ROUTINE Received On: 06/21/22 General Observations: presents alert, [...] Administered: Thin liquids (via spoon & straw), Post thickened liquids (via spoon & straw), Purees, Honey thickened liquids via spoon, Solids. Patient took large sips requiring more than 1 swallow even when cued for small sip. Administered consistencies contain barium product. Thin Liquids: Laryngeal Penetration: Present Aspiration Present: No Penetration Aspiration Scale-Thin: 4-Material enters the airway, contacts the vocal folds and is ejected from the airway Post Thickened Liquids: Laryngeal Penetration: Present Aspiration Present: No Penetration Aspiration Scale-Post: 2-Material enters the airway, remains above the [...] treatment goals and details, if indicated. Plan OFFICE CLERK ROUTINE Frequency of Services: 2-3x/wk OFFICE CLERK ROUTINE Recommendation (Add'l Services): Inpatient Rehab Facility Next Visit Plan: treatment/therapy Additional Referrals: none at this time Discharge Summary Statement If this is the last swallow therapy visit, this serves as the discharge summary. us Catherine Adams MD OFFICE CLERK ROUTINE ORDERABLES Final Resul t * POCT glucose (06/21/2022 12:00 PM CDT) Glucose, POC 157 70 - 199 mg/dL [facility] Blood 06/21/2022 12:0 0 PM CDT 06/21/2022 12:00 PM CDT us Catherine Adams MD LAB POCT ORDERABLES - DEVIC E Final Result Performing Organization Address City/State/[facility] Co de Phone Number [facility] Department [place] [address] * (ABNORMAL) eGFR (06/21/2022 8:38 AM CDT) eGFR 12(L) 90 - 130 mL/min/1. 73 m2 [facility] Comment: Interpretive Data Reference Interval [...] 06/21/2022 9:17 AM CDT us Marcelina Lo NP LAB BLOOD ORDERABLES Final Re sult [facility] Department [place] [address] * Differential, auto (06/21/2022 8:38 AM CDT) Neutrophil abs 3.3 1.7 - 6.5 K/cumm [facility] Imm gran abs 0.0 0.0 - 0.1 K/cumm [facility] Lymphocyte abs 1.2 0.8 - 3.3 K/cumm [facility] Monocyte abs 0.7 0.2 - 0.8 K/cumm [facility] Eosinophil abs 0.1 0.0 - 0.5 K/cumm [facility] Basophil abs 0.1 0.0 - 0.1 K/cumm [facility] Neutrophil pct 60.8 % [facility] Comment: Interpretive Data Percent cell count reference ranges are not reported, since discordance with absolute values may lead to misinterpretation of CBC data. Current Interpretive Data was last revised on 2017. Imm gran pct 0.7 % [facility] Comment: Interpretive Data Percent cell count reference ranges are not reported, since discordance with absolute values may lead to misinterpretation of CBC data. Current Interpretive Data was last revised on 2017. Lymphocyte pct 22.0 % [facility] Comment: Interpretive Data Percent cell count reference ranges are not reported, since discordance with absolute values may lead to misinterpretation of CBC data. Current Interpretive Data was last revised on 2017. Monocyte pct 13.7 % [facility] Comment: Interpretive Data Percent cell count reference ranges are not reported, since discordance with absolute values may lead to misinterpretation of CBC data. Current Interpretive Data was last revised on 2017. Eosinophil pct 1.9 % [facility] Comment: Interpretive Data Percent cell count reference ranges are not reported, since discordance with absolute values may lead to misinterpretation of CBC data. Current Interpretive Data was last revised on 2017. Basophil pct 0.9 % [facility] Comment: Interpretive Data Percent cell count reference ranges are not reported, since discordance with absolute values may lead to misinterpretation of CBC data. Current Interpretive Data was last revised on 2017. Blood 06/21/2022 8:38 AM CDT 06/21/2022 9:10 AM CDT Catherine Adams MD LAB BLOOD ORDERABLES Final Result Performing Organization Address City/[facility]/ZIP Co de Phone Number [facility] [place] [address] * (ABNORMAL) CBC with auto differential (06/21/2022 8:38 AM CDT) [facility] WBC 5.4 3.8 - 9.9 K/cumm [facility] Hgb 9.0(L) 13.0 - 17.5 g/dL [facility] Hct 27.8(L) 38.9 - 50.3 % [facility] Plt 171 150 - 400 K/cumm [facility] MPV 9.8 9.1 - 12.3 fL [facility] RBC 3.01(L) 4.30 - 5.80 M/cumm [facility] MCV 92.4 81.3 - 96.4 fL [facility] MCH 29.9 27.1 - 33.3 pg [facility] MCHC 32.4 32.3 - 35.7 g/dL [facility] RDW CV 19.9(H) 11.1 - 14.9 % [facility] RDW SD 63.2(H) 35.7 - 48.1 fL [facility] NRBC abs 0.02(H) 0.00 - 0.01 K/cumm [facility] Blood 06/21/2022 8:38 AM CDT 06/21/2022 9:10 AM CDT Catherine Adams MD LAB BLOOD ORDERABLES Final Result Performing Organization Address City/[facility]/ZIP Co de Phone Number [facility] [place] [address] * (ABNORMAL) Magnesium (06/21/2022 8:38 AM CDT) Magnesium 2.8(H) 1.4 - 2.5 mg/dL [facility] Blood 06/21/2022 8:38 AM CDT 06/21/2022 9:10 AM CDT us Marcelina Lo PRODUCT MANAGEMENT SPECIALIST LAB BLOOD ORDERABLES Final Re sult [facility] Department [place] [address] * (ABNORMAL) Comprehensive metabolic panel (06/21/2022 8:38 AM CDT) Sodium 139 135 - 145 mmol/L [facility] Potassium, pl 4.0 3.3 - 4.9 mmol/L [facility] Chloride 101 97 - 110 mmol/L [facility] CO2 27 22 - 32 mmol/L [facility] Anion gap 11 2 - 15 mmol/L [facility] BUN 36(H) 8 - 25 mg/dL [facility] Creatinine 5.26(H) 0.80 - 1.30 mg/dL [facility] Glucose 199 70 - 199 mg/dL [facility] Comment: Interpretive Data Fasting glucose [...] 2017. Calcium 8.4(L) 8.5 - 10.3 mg/dL [facility] Bilirubin, total 0.4 0.1 - 1.2 mg/dL [facility] Protein, pl 5.6(L) 6.5 - 8.5 g/dL [facility] Albumin 2.7(L) 3.5 - 5.0 g/dL [facility] Alk phos 115 40 - 130 Units/L [facility] ALT 28 7 - 55 Units/L [facility] AST 52(H) 10 - 50 Units/L [facility] Blood 06/21/2022 8:38 AM CDT 06/21/2022 9:10 AM CDT us Marcelina Lo PRODUCT MANAGEMENT SPECIALIST LAB BLOOD ORDERABLES Final Re sult [facility] [place] [address] * POCT glucose (06/21/2022 8:34 AM CDT) Glucose, POC 199 70 - 199 mg/dL [facility] Blood 06/21/2022 8:34 AM CDT 06/21/2022 8:34 AM CDT us Catherine Adams MD LAB POCT ORDERABLES - DEVIC E Final Result Performing Organization Address [facility] Co de Phone Number [facility] [place] [address] * (ABNORMAL) POCT glucose (06/21/2022 5:30 AM CDT) Glucose, POC 270(H) 70 - 199 mg/dL [facility] Blood 06/21/2022 5:30 AM CDT 06/21/2022 5:30 AM CDT us Catherine Adams MD LAB POCT ORDERABLES - DEVIC E Final Result Performing Organization Address [facility] Co de Phone Number [facility] [place] [address] * (ABNORMAL) POCT glucose (06/21/2022 12:22 AM CDT) Glucose, POC 231(H) 70 - 199 mg/dL [facility] Blood 06/21/2022 12:2 2 AM CDT 06/21/2022 12:22 AM CDT Catherine Adams MD LAB POCT ORDERABLES - DEVIC E Final Result [facility] Department [place] [address] * Differential, auto (06/21/2022 12:21 AM CDT) Pathologist [facility] Neutrophil abs 4.4 1.7 - 6.5 K/cumm [facility] Imm gran abs 0.1 0.0 - 0.1 K/cumm [facility] Lymphocyte abs 1.2 0.8 - 3.3 K/cumm [facility] Monocyte abs 0.8 0.2 - 0.8 K/cumm [facility] Eosinophil abs 0.1 0.0 - 0.5 K/cumm [facility] Basophil abs 0.0 0.0 - 0.1 K/cumm [facility] Neutrophil pct 67.5 % [facility] Comment: Interpretive Data Percent cell count reference ranges are not reported, since discordance with absolute values may lead to misinterpretation of CBC data. Current Interpretive Data was last revised on 2017. Imm gran pct 0.9 % [facility] Comment: Interpretive Data Percent cell count reference ranges are not reported, since discordance with absolute values may lead to misinterpretation of CBC data. Current Interpretive Data was last revised on 2017. Lymphocyte pct 18.3 % [facility] Comment: Interpretive Data Percent cell count reference ranges are not reported, since discordance with absolute values may lead to misinterpretation of CBC data. Current Interpretive Data was last revised on 2017. Monocyte pct 11.7 % [facility] Comment: Interpretive Data Percent cell count reference ranges are not reported, since discordance with absolute values may lead to misinterpretation of CBC data. Current Interpretive Data was last revised on 2017. Eosinophil pct 1.1 % [facility] Comment: Interpretive Data Percent cell count reference ranges are not reported, since discordance with absolute values may lead to misinterpretation of CBC data. Current Interpretive Data was last revised on 2017. Basophil pct 0.5 % [facility] Comment: Interpretive Data Percent cell count reference ranges are not reported, since discordance with absolute values may lead to misinterpretation of CBC data. Current Interpretive Data was last revised on 2017. Blood 06/21/2022 12:2 1 AM CDT 06/21/2022 12:50 AM CDT us Catherine Adams MD LAB BLOOD ORDERABLES Final Result [facility] Department [place] [address] * (ABNORMAL) CBC with auto differential (06/21/2022 12:21 AM CDT) Pathologist [facility] WBC 6.5 3.8 - 9.9 K/cumm [facility] Hgb 7.4(L) 13.0 - 17.5 g/dL [facility] Hct 23.6(L) 38.9 - 50.3 % [facility] Plt 179 150 - 400 K/cumm [facility] MPV 9.8 9.1 - 12.3 fL [facility] RBC 2.49(L) 4.30 - 5.80 M/cumm [facility] MCV 94.8 81.3 - 96.4 fL [facility] MCH 29.7 27.1 - 33.3 pg [facility] MCHC 31.4(L) 32.3 - 35.7 g/dL [facility] RDW CV 20.0(H) 11.1 - 14.9 % [facility] RDW SD 66.2(H) 35.7 - 48.1 fL [facility] NRBC abs 0.04(H) 0.00 - 0.01 K/cumm [facility] Blood 06/21/2022 12:2 1 AM CDT 06/21/2022 12:50 AM CDT Catherine Adams MD LAB BLOOD ORDERABLES Final Result Performing Organization Address City/[facility] Co de Phone Number [facility] Department [place] [address] * POCT glucose (06/20/2022 7:49 PM CDT) Pathologist [facility] Glucose, POC 177 70 - 199 mg/dL [facility] Blood 06/20/2022 7:49 PM CDT 06/20/2022 7:49 PM CDT Catherine Adams MD LAB POCT ORDERABLES - DEVIC E Final Result Performing Organization Address [facility] de Phone Number [facility] Department [place] [address] * (ABNORMAL) eGFR (06/20/2022 7:46 PM CDT) eGFR 18(L) 90 - 130 mL/min/1. 73 m2 [facility] Comment: Interpretive Data Reference Interval [...] PM CDT 06/20/2022 8:15 PM CDT us Mareclina Lo PRODUCT MANAGEMENT SPECIALIST LAB BLOOD ORDERABLES Final Re sult Performing Organization Address [facility] Co de Phone Number [facility] [place] [address] * Lactate (06/20/2022 7:46 PM CDT) Lactate 1.0 0.7 - 2.0 mmol/L [facility] Blood 06/20/2022 7:46 PM CDT 06/20/2022 8:14 PM CDT Catherine Adams MD LAB BLOOD ORDERABLES Final Result Performing Organization Address [facility] de Phone Number [facility] [place] [place] [address] * (ABNORMAL) Triglycerides (06/20/2022 7:46 PM CDT) Triglycerides 181(H) <=149 mg/dL [facility] Comment: Interpretive Data Ages < [...] PM CDT 06/20/2022 8:14 PM CDT Narrative [facility] - 06/20/2022 8:51 PM CDT While on propofol infusion. us Catherine Adams MD LAB BLOOD ORDERABLES Final Result Performing Organization Address [facility] de Phone Number [facility] Department [place] [address] * Phosphorus (06/20/2022 7:46 PM CDT) Phosphorus, pl 2.9 2.3 - 4.5 mg/dL [facility] Comment:Repeated and Verifie d Blood 06/20/2022 7:46 PM CDT 06/20/2022 8:14 PM CDT us Marcelina Lo NP LAB BLOOD ORDERABLES Final Re sult Performing Organization Address [facility] Co de Phone Number [facility] Department [place] [address] * (ABNORMAL) Beta-hydroxybutyrate (06/20/2022 7:46 PM CDT) Beta-Hydroxybut yrate 2.5(H) 0.0 - 0.5 mmol/L [facility] Blood 06/20/2022 7:46 PM CDT 06/20/2022 8:59 PM CDT Marcelina Lo PRODUCT MANAGEMENT SPECIALIST LAB BLOOD ORDERABLES Final Re sult Performing Organization Address City/[facility] Co de Phone Number [facility] [place] [place] [address] * Lipase (06/20/2022 7:46 PM CDT) Pathologist [facility] Lipase 88 10 - 99 Units/L [facility] Blood 06/20/2022 7:46 PM CDT 06/20/2022 8:14 PM CDT Marcelina Lo PRODUCT MANAGEMENT SPECIALIST LAB BLOOD ORDERABLES Final Re sult Performing Organization Address [facility] Co de Phone Number [facility] [place] [place] [address] * (ABNORMAL) Magnesium (06/20/2022 7:46 PM CDT) [facility] Magnesium 2.6(H) 1.4 - 2.5 mg/dL [facility] Blood 06/20/2022 7:46 PM CDT 06/20/2022 8:15 PM CDT Marcelina Lo PRODUCT MANAGEMENT SPECIALIST LAB BLOOD ORDERABLES Final Re sult Performing Organization Address [facility] Co de Phone Number [facility] [place] [place] [address] * (ABNORMAL) Comprehensive metabolic panel (06/20/2022 7:46 PM CDT) [facility] Sodium 137 135 - 145 mmol/L [facility] Potassium, pl 4.9 3.3 - 4.9 mmol/L [facility] Chloride 102 97 - 110 mmol/L [facility] CO2 23 22 - 32 mmol/L [facility] Anion gap 12 2 - 15 mmol/L [facility] BUN 26(H) 8 - 25 mg/dL [facility] Creatinine 3.87(H) 0.80 - 1.30 mg/dL [facility] Glucose 188 70 - 199 mg/dL [facility] Comment: Interpretive Data Fasting glucose [...] 2017. Calcium 8.5 8.5 - 10.3 mg/dL [facility] Bilirubin, total 0.6 0.1 - 1.2 mg/dL [facility] Protein, pl 5.7(L) 6.5 - 8.5 g/dL [facility] Albumin 2.7(L) 3.5 - 5.0 g/dL [facility] Alk phos 123 40 - 130 Units/L [facility] ALT 29 7 - 55 Units/L [facility] AST 61(H) 10 - 50 Units/L [facility] Blood 06/20/2022 7:46 PM CDT 06/20/2022 8:15 PM CDT us Marcelina Lo PRODUCT MANAGEMENT SPECIALIST LAB BLOOD ORDERABLES Final Re sult [facility] Department [place] [address] * (ABNORMAL) Differential, auto (06/20/2022 6:18 PM CDT) Neutrophil abs 6.2 1.7 - 6.5 K/cumm [facility] Imm gran abs 0.1 0.0 - 0.1 K/cumm [facility] Lymphocyte abs 0.9 0.8 - 3.3 K/cumm [facility] Monocyte abs 1.1(H) 0.2 - 0.8 K/cumm [facility] Eosinophil abs 0.0 0.0 - 0.5 K/cumm [facility] Basophil abs 0.0 0.0 - 0.1 K/cumm [facility] Neutrophil pct 74.5 % [facility] Comment: Interpretive Data Percent cell count reference ranges are not reported, since discordance with absolute values may lead to misinterpretation of CBC data. Current Interpretive Data was last revised on 2017. Imm gran pct 0.7 % [facility] Comment: Interpretive Data Percent cell count reference ranges are not reported, since discordance with absolute values may lead to misinterpretation of CBC data. Current Interpretive Data was last revised on 2017. Lymphocyte pct 11.0 % [facility] Comment: Interpretive Data Percent cell count reference ranges are not reported, since discordance with absolute values may lead to misinterpretation of CBC data. Current Interpretive Data was last revised on 2017. Monocyte pct 12.8 % [facility] Comment: Interpretive Data Percent cell count reference ranges are not reported, since discordance with absolute values may lead to misinterpretation of CBC data. Current Interpretive Data was last revised on 2017. Eosinophil pct 0.5 % [facility] Comment: Interpretive Data Percent cell count reference ranges are not reported, since discordance with absolute values may lead to misinterpretation of CBC data. Current Interpretive Data was last revised on 2017. Basophil pct 0.5 % [facility] Comment: Interpretive Data Percent cell count reference ranges are not reported, since discordance with absolute values may lead to misinterpretation of CBC data. Current Interpretive Data was last revised on 2017. Blood 06/20/2022 6:18 PM CDT 06/20/2022 7:08 PM CDT us Tyra De La Torre MD LAB BLOOD ORDERABLES Final Resu lt [facility] Department [place] [address] * (ABNORMAL) CBC with auto differential (06/20/2022 6:18 PM CDT) WBC 8.3 3.8 - 9.9 K/cumm [facility] Hgb 7.7(L) 13.0 - 17.5 g/dL [facility] Hct 23.7(L) 38.9 - 50.3 % [facility] Plt 188 150 - 400 K/cumm [facility] MPV 9.8 9.1 - 12.3 fL [facility] RBC 2.55(L) 4.30 - 5.80 M/cumm [facility] MCV 92.9 81.3 - 96.4 fL [facility] MCH 30.2 27.1 - 33.3 pg [facility] MCHC 32.5 32.3 - 35.7 g/dL [facility] RDW CV 20.1(H) 11.1 - 14.9 % [facility] RDW SD 64.8(H) 35.7 - 48.1 fL [facility] NRBC abs 0.04(H) 0.00 - 0.01 K/cumm [facility] Blood 06/20/2022 6:18 PM CDT 06/20/2022 7:08 PM CDT us Tyra De La Torre MD LAB BLOOD ORDERABLES Final Resu lt [facility] Department [place] [address] * POCT glucose (06/20/2022 3:53 PM CDT) [facility] Signature Glucose, POC 124 70 - 199 mg/dL [facility] Blood 06/20/2022 3:5 3 PM CDT 06/20/2022 3:53 PM CDT us Catherine Adams MD LAB POCT ORDERABLES - DEVIC E Final Result [facility] Department [place] [address] * (ABNORMAL) Differential, auto (06/20/2022 3:22 PM CDT) Neutrophil abs 4.7 1.7 - 6.5 K/cumm [facility] Imm gran abs 0.1 0.0 - 0.1 K/cumm [facility] Lymphocyte abs 1.4 0.8 - 3.3 K/cumm [facility] Monocyte abs 1.0(H) 0.2 - 0.8 K/cumm [facility] Eosinophil abs 0.0 0.0 - 0.5 K/cumm [facility] Basophil abs 0.1 0.0 - 0.1 K/cumm [facility] Neutrophil pct 64.5 % [facility] Comment: Interpretive Data Percent cell count reference ranges are not reported, since discordance with absolute values may lead to misinterpretation of CBC data. Current Interpretive Data was last revised on 2017. Imm gran pct 0.7 % [facility] Comment: Interpretive Data Percent cell count reference ranges are not reported, since discordance with absolute values may lead to misinterpretation of CBC data. Current Interpretive Data was last revised on 2017. Lymphocyte pct 19.4 % [facility] Comment: Interpretive Data Percent cell count reference ranges are not reported, since discordance with absolute values may lead to misinterpretation of CBC data. Current Interpretive Data was last revised on 2017. Monocyte pct 14.1 % [facility] Comment: Interpretive Data Percent cell count reference ranges are not reported, since discordance with absolute values may lead to misinterpretation of CBC data. Current Interpretive Data was last revised on 2017. Eosinophil pct 0.6 % [facility] Comment: Interpretive Data Percent cell count reference ranges are not reported, since discordance with absolute values may lead to misinterpretation of CBC data. Current Interpretive Data was last revised on 2017. Basophil pct 0.7 % [facility] Comment: Interpretive Data Percent cell count reference ranges are not reported, since discordance with absolute values may lead to misinterpretation of CBC data. Current Interpretive Data was last revised on 2017. Blood 06/20/2022 3:22 PM CDT 06/20/2022 3:55 PM CDT Catherine Adams MD LAB BLOOD ORDERABLES Final Result [facility] Department [place] [address] * (ABNORMAL) CBC with auto differential (06/20/2022 3:22 PM CDT) WBC 7.2 3.8 - 9.9 K/cumm [facility] Hgb 8.0(L) 13.0 - 17.5 g/dL [facility] Hct 24.5(L) 38.9 - 50.3 % [facility] Plt 207 150 - 400 K/cumm [facility] MPV 9.8 9.1 - 12.3 fL [facility] RBC 2.67(L) 4.30 - 5.80 M/cumm [facility] MCV 91.8 81.3 - 96.4 fL [facility] Comment:MCV delta due to zoie arent blood transfusion. MCH 30.0 27.1 - 33.3 pg [facility] MCHC 32.7 32.3 - 35.7 g/dL [facility] RDW CV 19.9(H) 11.1 - 14.9 % [facility] RDW SD 63.6(H) 35.7 - 48.1 fL [facility] NRBC abs 0.03(H) 0.00 - 0.01 K/cumm [facility] Blood 06/20/2022 3:22 PM CDT 06/20/2022 3:55 PM CDT Catherine Adams MD LAB BLOOD ORDERABLES Final Result [facility] Department [place] [address] * CT Chest Abdomen Pelvis WO Contrast [...] ORDERABLE S Final Result Performing Organization Address [facility] Co de Phone Number [facility] [place] [address] * Transfuse RBC: 1 Units (06/20/2022 12:05 PM CDT) Blood us Catherine Adams MD BLOOD TRANSFUSION ORDERABLE S Final Result * Prepare RBC: 1 Units (06/20/2022 9:35 AM CDT) Product code [id number] [facility] Unit Number [id number] 3-* [facility] Product Blood Type APOS [facility] Dispense Status RETURNED [facility] Blood 06/20/2022 9:35 AM CDT 06/20/2022 9:34 AM CDT Narrative [facility] - 06/20/2022 1:20 PM CDT Are special requirements needed? (All products are leukoreduced and CMV- safe)- >No Date required:-[id number] LRRBC # of [id number] Reasons:-Hgb <7 g/dL} us Catherine Adams MD BLOOD BANK PRODUCT ORDERABL ES Final Result Performing Organization Address [facility] Co de Phone Number [facility] Department [place] [address] * (ABNORMAL) eGFR (06/20/2022 8:24 AM CDT) Pathologist [facility] eGFR 21(L) 90 - 130 mL/min/1. 73 m2 [facility] [...] 06/20/2022 8:48 AM CDT us Marcelina Lo PRODUCT MANAGEMENT SPECIALIST LAB BLOOD ORDERABLES Final Re sult [facility] Department [place] [address] * (ABNORMAL) Differential, auto (06/20/2022 8:24 AM CDT) [facility] Neutrophil abs 5.1 1.7 - 6.5 K/cumm [facility] Imm gran abs 0.1 0.0 - 0.1 K/cumm [facility] Lymphocyte abs 1.6 0.8 - 3.3 K/cumm [facility] Monocyte abs 1.3(H) 0.2 - 0.8 K/cumm [facility] Eosinophil abs 0.1 0.0 - 0.5 K/cumm [facility] Basophil abs 0.1 0.0 - 0.1 K/cumm [facility] Neutrophil pct 62.3 % [facility] Comment: Interpretive Data Percent cell count reference ranges are not reported, since discordance with absolute values may lead to misinterpretation of CBC data. Current Interpretive Data was last revised on 2017. Imm gran pct 0.7 % [facility] Comment: Interpretive Data Percent cell count reference ranges are not reported, since discordance with absolute values may lead to misinterpretation of CBC data. Current Interpretive Data was last revised on 2017. Lymphocyte pct 19.9 % [facility] Comment: Interpretive Data Percent cell count reference ranges are not reported, since discordance with absolute values may lead to misinterpretation of CBC data. Current Interpretive Data was last revised on 2017. Monocyte pct 15.9 % [facility] Comment: Interpretive Data Percent cell count reference ranges are not reported, since discordance with absolute values may lead to misinterpretation of CBC data. Current Interpretive Data was last revised on 2017. Eosinophil pct 0.6 % [facility] Comment: Interpretive Data Percent cell count reference ranges are not reported, since discordance with absolute values may lead to misinterpretation of CBC data. Current Interpretive Data was last revised on 2017. Basophil pct 0.6 % [facility] Comment: Interpretive Data Percent cell count reference ranges are not reported, since discordance with absolute values may lead to misinterpretation of CBC data. Current Interpretive Data was last revised on 2017. Blood 06/20/2022 8:24 AM CDT 06/20/2022 8:48 AM CDT Catherine Adams MD LAB BLOOD ORDERABLES Final Result [facility] Department [place] [address] * (ABNORMAL) CBC with auto differential (06/20/2022 8:24 AM CDT) WBC 8.3 3.8 - 9.9 K/cumm [facility] Hgb 6.6(L) 13.0 - 17.5 g/dL [facility] Hct 20.7(L) 38.9 - 50.3 % [facility] Plt 271 150 - 400 K/cumm [facility] MPV 9.6 9.1 - 12.3 fL [facility] RBC 2.12(L) 4.30 - 5.80 M/cumm [facility] MCV 97.6(H) 81.3 - 96.4 fL [facility] MCH 31.1 27.1 - 33.3 pg [facility] MCHC 31.9(L) 32.3 - 35.7 g/dL [facility] RDW CV 17.4(H) 11.1 - 14.9 % [facility] RDW SD 59.6(H) 35.7 - 48.1 fL [facility] NRBC abs 0.00 0.00 - 0.01 K/cumm [facility] Blood 06/20/2022 8:24 AM CDT 06/20/2022 8:48 AM CDT Catherine Adams MD LAB BLOOD ORDERABLES Final Result [facility] Department [place] [address] * (ABNORMAL) Magnesium (06/20/2022 8:24 AM CDT) Magnesium 2.7(H) 1.4 - 2.5 mg/dL [facility] Blood 06/20/2022 8:24 AM CDT 06/20/2022 8:48 AM CDT us Marcelina Lo NP LAB BLOOD ORDERABLES Final Re sult [facility] Department [place] [address] * (ABNORMAL) Comprehensive metabolic panel (06/20/2022 8:24 AM CDT) Sodium 140 135 - 145 mmol/L [facility] Potassium, pl 4.9 3.3 - 4.9 mmol/L [facility] Chloride 104 97 - 110 mmol/L [facility] CO2 25 22 - 32 mmol/L [facility] Anion gap 11 2 - 15 mmol/L [facility] BUN 25 8 - 25 mg/dL [facility] Creatinine 3.43(H) 0.80 - 1.30 mg/dL [facility] Glucose 144 70 - 199 mg/dL [facility] Comment: Interpretive Data Fasting glucose [...] 2017. Calcium 8.4(L) 8.5 - 10.3 mg/dL [facility] Bilirubin, total 0.6 0.1 - 1.2 mg/dL [facility] Protein, pl 6.2(L) 6.5 - 8.5 g/dL [facility] Albumin 2.8(L) 3.5 - 5.0 g/dL [facility] Alk phos 143(H) 40 - 130 Units/L [facility] ALT 35 7 - 55 Units/L [facility] AST 79(H) 10 - 50 Units/L [facility] Blood 06/20/2022 8:24 AM CDT 06/20/2022 8:48 AM CDT us Marcelina Lo PRODUCT MANAGEMENT SPECIALIST LAB BLOOD ORDERABLES Final Re sult Performing Organization Address [facility] Co de Phone Number [facility] [place] [place] [address] * POCT glucose (06/20/2022 8:21 AM CDT) Glucose, POC 152 70 - 199 mg/dL [facility] Blood 06/20/2022 8:21 AM CDT 06/20/2022 8:21 AM CDT Catherine Adams MD LAB POCT ORDERABLES - DEVIC E Final Result Performing Organization Address [facility] de Phone Number [facility] [place] [address] * Transfuse RBC (06/20/2022 6:12 AM CDT) Blood Catherine Adams MD BLOOD TRANSFUSION ORDERABLE S Final Result Performing Organization Address [facility] de Phone Number [facility] Department [place] [address] * Transfuse RBC: 1 Units (06/20/2022 6:12 AM CDT) Blood Catherine Adams MD BLOOD TRANSFUSION ORDERABLE S Final Result * POCT glucose (06/20/2022 4:57 AM CDT) Glucose, POC 174 70 - 199 mg/dL [facility] Blood 06/20/2022 4:57 AM CDT 06/20/2022 4:57 AM CDT us Catherine Adams MD LAB POCT ORDERABLES - DEVIC E Final Result Performing Organization Address City/[facility]/ZIP Co de Phone Number [facility] Department [place] [address] * (ABNORMAL) Hemoglobin and hematocrit (06/20/2022 12:25 AM CDT) Pathologist [facility] Hgb 6.2(C) 13.0 - 17.5 g/dL [facility] [facility] Comment:Consistent with prev ious results Hct 19.8(L) 38.9 - 50.3 % [facility] Blood 06/20/2022 12:2 5 AM CDT 06/20/2022 12:37 AM CDT Meme Castro MD LAB BLOOD ORDERABLES Final Result Performing Organization Address [facility] Co de Phone Number [facility] Department [place] [address] * Type and screen (06/20/2022 12:23 AM CDT) [facility] Maribel, indirect Negative [facility] ABO Rh A Positive [facility] Blood 06/20/2022 12:2 3 AM CDT 06/20/2022 1:33 AM CDT Narrative [facility] - 06/20/2022 3:08 AM CDT Has the patient had Daratumumab or Isatuximab in the past 6 months?->Unknown Catherine Adams MD LAB BLOOD BANK TEST ORDERAB LES Final Result Performing Organization Address [facility]/ZIP Co de Phone Number [facility] Department [place] [address] * Prepare RBC: 1 Units (06/20/2022 12:15 AM CDT) [facility] Product code [id number] [facility] Unit Number [id number] [facility] Product Blood Type APOS [facility] Dispense Status PRESUMED TRANSFUSED [facility] Blood 06/20/2022 12:1 5 AM CDT 06/20/2022 12:16 AM CDT Narrative [facility] - 06/21/2022 12:50 AM CDT Are special requirements needed? (All products are leukoreduced and CMV- safe)- >No Date required:-[id number] LRRBC # of [id number] Reasons:-Hgb <7 g/dL} Catherine Adams MD BLOOD BANK PRODUCT ORDERABL ES Final Result Performing Organization Address [facility] de Phone Number [facility] Department [place] [address] * (ABNORMAL) POCT glucose (06/20/2022 12:01 AM CDT) Glucose, POC 206(H) 70 - 199 mg/dL [facility] Blood 06/20/2022 12:0 1 AM CDT 06/20/2022 12:[address] [facility] Catherine Adams MD LAB POCT ORDERABLES - DEVIC E Final Result Performing Organization Address [facility] de Phone Number [facility] Department [place] [address] * (ABNORMAL) Hemoglobin and hematocrit (06/19/2022 11:25 PM CDT) Hgb 6.2(C) 13.0 - 17.5 g/dL [facility] Comment:Critical result call ed to and read back by WON SHELBY RN on 06 20 2022 at 0010 to Precious Restrepo. Hct 19.5(L) 38.9 - 50.3 % [facility] Blood 06/19/2022 11:2 5 PM CDT 06/19/2022 11:42 PM CDT Meme Castro MD LAB BLOOD ORDERABLES Final Result Performing Organization Address [facility]/ZIP Co de Phone Number [facility] Department [place] [address] * POCT glucose (06/19/2022 8:55 PM CDT) [facility] Glucose, POC 161 70 - 199 mg/dL [facility] Blood 06/19/2022 8:55 PM CDT 06/19/2022 8:55 PM CDT us Catherine Adams MD LAB POCT ORDERABLES - DEVIC E Final Result Performing Organization Address [facility] de Phone Number [facility] Department [place] [address] * (ABNORMAL) eGFR (06/19/2022 8:54 PM CDT) [facility] eGFR 16(L) 90 - 130 mL/min/1. 73 m2 [facility] Comment: Interpretive Data Reference Interval [...] 06/19/2022 9:22 PM CDT us Marcelina Lo PRODUCT MANAGEMENT SPECIALIST LAB BLOOD ORDERABLES Final Re sult [facility] Department [place] [address] * (ABNORMAL) Differential, auto (06/19/2022 8:54 PM CDT) Neutrophil abs 5.0 1.7 - 6.5 K/cumm [facility] Imm gran abs 0.1 0.0 - 0.1 K/cumm [facility] Lymphocyte abs 2.1 0.8 - 3.3 K/cumm [facility] Monocyte abs 1.2(H) 0.2 - 0.8 K/cumm [facility] Eosinophil abs 0.1 0.0 - 0.5 K/cumm [facility] Basophil abs 0.1 0.0 - 0.1 K/cumm [facility] Neutrophil pct 59.1 % [facility] Comment: Interpretive Data Percent cell count reference ranges are not reported, since discordance with absolute values may lead to misinterpretation of CBC data. Current Interpretive Data was last revised on 2017. Imm gran pct 0.7 % [facility] Comment: Interpretive Data Percent cell count reference ranges are not reported, since discordance with absolute values may lead to misinterpretation of CBC data. Current Interpretive Data was last revised on 2017. Lymphocyte pct 24.4 % [facility] Comment: Interpretive Data Percent cell count reference ranges are not reported, since discordance with absolute values may lead to misinterpretation of CBC data. Current Interpretive Data was last revised on 2017. Monocyte pct 13.7 % [facility] Comment: Interpretive Data Percent cell count reference ranges are not reported, since discordance with absolute values may lead to misinterpretation of CBC data. Current Interpretive Data was last revised on 2017. Eosinophil pct 1.3 % [facility] Comment: Interpretive Data Percent cell count reference ranges are not reported, since discordance with absolute values may lead to misinterpretation of CBC data. Current Interpretive Data was last revised on 2017. Basophil pct 0.8 % [facility] Comment: Interpretive Data Percent cell count reference ranges are not reported, since discordance with absolute values may lead to misinterpretation of CBC data. Current Interpretive Data was last revised on 2017. Blood 06/19/2022 8:54 PM CDT 06/19/2022 9:17 PM CDT Marcelina Lo PRODUCT MANAGEMENT SPECIALIST LAB BLOOD ORDERABLES Final Re sult Performing Organization Address [facility] Co de Phone Number [facility] [place] [address] * (ABNORMAL) Blood gas, arterial (06/19/2022 8:54 PM CDT) pH, Art 7.45 7.35 - 7.45 [facility] PCO2, Arterial 32(L) 35 - 45 mmHg [facility] PO2, Arterial 75(L) 83 - 108 mmHg [facility] HCO3 Art (Calculated) 23 20 - 30 mmol/L [facility] BE, art -1 mmol/L [facility] Comment: Interpretive Data No Reference Range Established Current Interpretive Data was last revised on 2017 O2 Sat Art (Measured) 95 90 - 95 % [facility] Blood 06/19/2022 8:54 PM CDT 06/19/2022 9:17 PM CDT Marcelina Lo PRODUCT MANAGEMENT SPECIALIST LAB BLOOD ORDERABLES Final Re sult Performing Organization Address [facility] Co de Phone Number [facility] [place] [address] * aPTT (06/19/2022 8:54 PM CDT) Pathologist [facility] aPTT 37 27 - 37 sec [facility] Comment: Interpretive Data Therapeutic heparin range: 60.0 - 94.0 seconds. Based on correlation with therapeutic heparin activity range of 0.3-0.7 Units/mL. Current interpretive data was last revised on 2020. Blood 06/19/2022 8:54 PM CDT 06/19/2022 9:30 PM CDT Narrative [facility] - 06/19/2022 9:38 PM CDT Draw STAT [...] BLOOD ORDERABLES Final Result Performing Organization Address [facility] Co de Phone Number [facility] Department [place] [address] * Lactate (06/19/2022 8:54 PM CDT) Lactate 1.3 0.7 - 2.0 mmol/L [facility] Blood 06/19/2022 8:54 PM CDT 06/19/2022 9:22 PM CDT Catherine Adams MD LAB BLOOD ORDERABLES Final Result Performing Organization Address [facility]/ZIP Co de Phone Number [facility] Department [place] [address] * (ABNORMAL) Beta-hydroxybutyrate (06/19/2022 8:54 PM CDT) Beta-Hydroxybut yrate 0.7(H) 0.0 - 0.5 mmol/L [facility] Blood 06/19/2022 8:54 PM CDT 06/19/2022 9:17 PM CDT Marcelina D. Lo PRODUCT MANAGEMENT SPECIALIST LAB BLOOD ORDERABLES Final Re sult Performing Organization Address [facility]/ZIP Co de Phone Number [facility] Department [place] [address] * (ABNORMAL) Magnesium (06/19/2022 8:54 PM CDT) Pathologist [facility] Magnesium 2.7(H) 1.4 - 2.5 mg/dL [facility] Blood 06/19/2022 8:54 PM CDT 06/19/2022 9:22 PM CDT Marcelina Lo PRODUCT MANAGEMENT SPECIALIST LAB BLOOD ORDERABLES Final Re sult Performing Organization Address [facility] Co de Phone Number [facility] Department [place] [address] * (ABNORMAL) Comprehensive metabolic panel (06/19/2022 8:54 PM CDT) [facility] Sodium 140 135 - 145 mmol/L [facility] Potassium, pl 4.8 3.3 - 4.9 mmol/L [facility] Chloride 102 97 - 110 mmol/L [facility] CO2 25 22 - 32 mmol/L [facility] Anion gap 13 2 - 15 mmol/L [facility] BUN 32(H) 8 - 25 mg/dL [facility] Creatinine 4.27(H) 0.80 - 1.30 mg/dL [facility] Glucose 148 70 - 199 mg/dL [facility] Comment: Interpretive Data Fasting glucose [...] 2017. Calcium 8.3(L) 8.5 - 10.3 mg/dL [facility] Bilirubin, total 0.5 0.1 - 1.2 mg/dL [facility] Protein, pl 6.1(L) 6.5 - 8.5 g/dL [facility] Albumin 2.9(L) 3.5 - 5.0 g/dL [facility] Alk phos 150(H) 40 - 130 Units/L [facility] ALT 32 7 - 55 Units/L [facility] AST 61(H) 10 - 50 Units/L [facility] Blood 06/19/2022 8:54 PM CDT 06/19/2022 9:22 PM CDT us Marcelina Lo NP LAB BLOOD ORDERABLES Final Re sult [facility] Department [place] [address] * (ABNORMAL) CBC with auto differential (06/19/2022 8:54 PM CDT) WBC 8.4 3.8 - 9.9 K/cumm [facility] Hgb 6.8(L) 13.0 - 17.5 g/dL [facility] Comment:No apparent cause fo r delta. called ashley sandoval MD Hct 20.5(L) 38.9 - 50.3 % [facility] Plt 255 150 - 400 K/cumm [facility] MPV 9.6 9.1 - 12.3 fL [facility] RBC 2.15(L) 4.30 - 5.80 M/cumm [facility] MCV 95.3 81.3 - 96.4 fL [facility] MCH 31.6 27.1 - 33.3 pg [facility] MCHC 33.2 32.3 - 35.7 g/dL [facility] RDW CV 16.5(H) 11.1 - 14.9 % [facility] RDW SD 55.8(H) 35.7 - 48.1 fL [facility] NRBC abs 0.03(H) 0.00 - 0.01 K/cumm [facility] Blood 06/19/2022 8:54 PM CDT 06/19/2022 9:17 PM CDT us Marcelina Lo PRODUCT MANAGEMENT SPECIALIST LAB BLOOD ORDERABLES Final Re sult Performing Organization Address [facility] Co de Phone Number [facility] [place] [place] [address] * (ABNORMAL) POCT glucose (06/19/2022 4:59 PM CDT) Glucose, POC 205(H) 70 - 199 mg/dL [facility] Blood 06/19/2022 4:59 PM CDT 06/19/2022 4:59 PM CDT us Catherine Adams MD LAB POCT ORDERABLES - DEVIC E Final Result Performing Organization Address [facility] de Phone Number [facility] Department [place] [address] * POCT glucose (06/19/2022 1:22 PM CDT) Glucose, POC 101 70 - 199 mg/dL [facility] Blood 06/19/2022 1:22 PM CDT 06/19/2022 1:22 PM CDT us Catherine Adams MD LAB POCT ORDERABLES - DEVIC E Final Result Performing Organization Address [facility] Co de Phone Number [facility] [place] [address] * ECG 12 lead (06/19/2022 1:03 PM CDT) Ventricular Rate EKG/Min 126 BPM [facility] Atrial Rate 63 BPM [facility] QRS-Interval (MSEC) 106 ms [facility] QT-Interval (MSEC) 360 ms [facility] QTc 521 ms [facility] R [place] -53 degrees [facility] T [place] 125 degrees [facility] Diagnosis Atrial fibrillation with rapid ventricular response with premature ventricular or aberrantly conducted complexes Left axis deviation Poor precordial R wave progression Anterior infarct , age undetermined ST & T wave abnormality, consider lateral ischemia Abnormal ECG When compared with ECG of 18-JUN-2022 18:40, (unconfirmed) No significant change was found Confirmed by HUDSON SAL M.D ([id number]) on 06/22/2022 10:55:43 AM [facility] 06/19/2022 1:03 PM CDT 06/22/2022 10:55 AM CDT us Conrad Weston Chi, MD ECG ORDERABLES Final Res ult [facility] * US RUQ (06/19/2022 10:35 AM [...] Rivera M.D. us Catherine Adams MD IM US PROCEDURES Final Res ult * (ABNORMAL) eGFR (06/19/2022 9:09 AM CDT) [facility] eGFR 13(L) 90 - 130 mL/min/1. 73 m2 [facility] Comment: Interpretive Data Reference Interval [...] 06/19/2022 10:17 AM CDT us Marcelina Lo PRODUCT MANAGEMENT SPECIALIST LAB BLOOD ORDERABLES Final Re sult [facility] Department [place] [address] * Differential, auto (06/19/2022 9:09 AM CDT) Neutrophil abs 2.8 1.7 - 6.5 K/cumm [facility] Imm gran abs 0.0 0.0 - 0.1 K/cumm [facility] Lymphocyte abs 1.2 0.8 - 3.3 K/cumm [facility] Monocyte abs 0.7 0.2 - 0.8 K/cumm [facility] Eosinophil abs 0.1 0.0 - 0.5 K/cumm [facility] Basophil abs 0.1 0.0 - 0.1 K/cumm [facility] Neutrophil pct 56.1 % [facility] Comment: Interpretive Data Percent cell count reference ranges are not reported, since discordance with absolute values may lead to misinterpretation of CBC data. Current Interpretive Data was last revised on 2017. Imm gran pct 0.8 % [facility] Comment: Interpretive Data Percent cell count reference ranges are not reported, since discordance with absolute values may lead to misinterpretation of CBC data. Current Interpretive Data was last revised on 2017. Lymphocyte pct 24.9 % [facility] Comment: Interpretive Data Percent cell count reference ranges are not reported, since discordance with absolute values may lead to misinterpretation of CBC data. Current Interpretive Data was last revised on 2017. Monocyte pct 14.2 % [facility] Comment: Interpretive Data Percent cell count reference ranges are not reported, since discordance with absolute values may lead to misinterpretation of CBC data. Current Interpretive Data was last revised on 2017. Eosinophil pct 2.8 % [facility] Comment: Interpretive Data Percent cell count reference ranges are not reported, since discordance with absolute values may lead to misinterpretation of CBC data. Current Interpretive Data was last revised on 2017. Basophil pct 1.2 % [facility] Comment: Interpretive Data Percent cell count reference ranges are not reported, since discordance with absolute values may lead to misinterpretation of CBC data. Current Interpretive Data was last revised on 2017. Blood 06/19/2022 9:09 AM CDT 06/19/2022 10:25 AM CDT us Marcelina Lo NP LAB BLOOD ORDERABLES Final Re sult [facility] Department [place] [address] * (ABNORMAL) Blood gas, arterial (06/19/2022 9:09 AM CDT) pH, Art 7.41 7.35 - 7.45 [facility] PCO2, Arterial 33(L) 35 - 45 mmHg [facility] PO2, Arterial 87 83 - 108 mmHg [facility] HCO3 Art (Calculated) 21 20 - 30 mmol/L [facility] BE, art -4 mmol/L [facility] Comment: Interpretive Data No Reference Range Established Current Interpretive Data was last revised on 2017 O2 Sat Art (Measured) 96(H) 90 - 95 % [facility] Blood 06/19/2022 9:09 AM CDT 06/19/2022 9:18 AM CDT Marcelina Lo PRODUCT MANAGEMENT SPECIALIST LAB BLOOD ORDERABLES Final Re sult Performing Organization Address [facility] Co de Phone Number [facility] Department [place] [address] * (ABNORMAL) Magnesium (06/19/2022 9:09 AM CDT) Pathologist [facility] Magnesium 2.9(H) 1.4 - 2.5 mg/dL [facility] Blood 06/19/2022 9:09 AM CDT 06/19/2022 10:17 AM CDT Marcelina Lo PRODUCT MANAGEMENT SPECIALIST LAB BLOOD ORDERABLES Final Re sult Performing Organization Address [facility] de Phone Number [facility] Department [place] [address] * (ABNORMAL) Comprehensive metabolic panel (06/19/2022 9:09 AM CDT) [facility] Sodium 137 135 - 145 mmol/L [facility] Potassium, pl 4.6 3.3 - 4.9 mmol/L [facility] Chloride 101 97 - 110 mmol/L [facility] CO2 23 22 - 32 mmol/L [facility] Anion gap 13 2 - 15 mmol/L [facility] BUN 35(H) 8 - 25 mg/dL [facility] Creatinine 5.02(H) 0.80 - 1.30 mg/dL [facility] Glucose 205(H) 70 - 199 mg/dL [facility] Comment: Interpretive Data Fasting glucose [...] 2017. Calcium 8.4(L) 8.5 - 10.3 mg/dL [facility] Bilirubin, total 0.4 0.1 - 1.2 mg/dL [facility] Protein, pl 6.1(L) 6.5 - 8.5 g/dL [facility] Albumin 2.9(L) 3.5 - 5.0 g/dL [facility] Alk phos 156(H) 40 - 130 Units/L [facility] ALT 32 7 - 55 Units/L [facility] AST 54(H) 10 - 50 Units/L [facility] Blood 06/19/2022 9:09 AM CDT 06/19/2022 10:17 AM CDT us Marcelina Lo PRODUCT MANAGEMENT SPECIALIST LAB BLOOD ORDERABLES Final Re sult [facility] Department [place] [address] * (ABNORMAL) CBC with auto differential (06/19/2022 9:09 AM CDT) WBC 4.9 3.8 - 9.9 K/cumm [facility] Hgb 9.9(L) 13.0 - 17.5 g/dL [facility] Hct 31.5(L) 38.9 - 50.3 % [facility] Plt 237 150 - 400 K/cumm [facility] MPV 9.9 9.1 - 12.3 fL [facility] RBC 3.20(L) 4.30 - 5.80 M/cumm [facility] MCV 98.4(H) 81.3 - 96.4 fL [facility] MCH 30.9 27.1 - 33.3 pg [facility] MCHC 31.4(L) 32.3 - 35.7 g/dL [facility] RDW CV 16.4(H) 11.1 - 14.9 % [facility] RDW SD 57.2(H) 35.7 - 48.1 fL [facility] NRBC abs 0.00 0.00 - 0.01 K/cumm [facility] Blood 06/19/2022 9:09 AM CDT 06/19/2022 10:25 AM CDT us Marcelina Lo PRODUCT MANAGEMENT SPECIALIST LAB BLOOD ORDERABLES Final Re sult Performing Organization Address [facility] Co de Phone Number [facility] Department [place] [address] * (ABNORMAL) POCT glucose (06/19/2022 9:08 AM CDT) [facility] Signature Glucose, POC 217(H) 70 - 199 mg/dL [facility] Blood 06/19/2022 9:08 AM CDT 06/19/2022 9:08 AM CDT us Catherine Adams MD LAB POCT ORDERABLES - DEVIC E Final Result Performing Organization Address [facility] Co de Phone Number [facility] [place] [address] * XR Chest 1 View (06/19/2022 5:51 AM CDT) Anatomical Region Laterality Modality Body, Chest N/A Computed Radiogr aphy 06/19/2022 7:34 AM CDT Impressions 06/19/2022 7:34 AM CDT Comparison made to 06/18/2022. ??Right internal jugular catheter tip overlies the superior vena cava. ??Nasogastric tube tip located below diaphragm, not included on the [id number]. ??A tracheal tube tip located within the [...] located below diaphragm, not included on the [id number]. A tracheal tube tip located within the mid trachea. There are small lung volumes a likely small bilateral pleural effusions, left greater than right with associated bibasilar atelectasis. No pneumothorax or pneumonic consolidation. Stable heart size. Electronically signed by: John Bruno M.D. Catherine Adams MD IMG XR PROCEDURES Final Res ult * (ABNORMAL) eGFR (06/18/2022 10:50 PM CDT) eGFR 13(L) 90 - 130 mL/min/1. 73 m2 [facility] Comment: Interpretive Data Reference Interval [...] CDT 06/18/2022 11:02 PM CDT Marcelina Lo PRODUCT MANAGEMENT SPECIALIST LAB BLOOD ORDERABLES Final Re sult Performing Organization Address [facility] Co de Phone Number [facility] [place] [place] [address] * Vancomycin level random (06/18/2022 10:50 PM CDT) Pathologist [facility] Vancomycin random 38.4 mcg/mL [facility] Comment: Interpretive Data No reference ranges have been established for random drug levels. Current Interpretive Data was last revised on 2020. Blood 06/18/2022 10:5 0 PM CDT 06/18/2022 10:59 PM CDT Catherine Adams MD LAB BLOOD ORDERABLES Final Result Performing Organization Address [facility] de Phone Number [facility] [place] [address] * (ABNORMAL) Differential, auto (06/18/2022 10:50 PM CDT) [facility] Neutrophil abs 5.0 1.7 - 6.5 K/cumm [facility] Imm gran abs 0.1 0.0 - 0.1 K/cumm [facility] Lymphocyte abs 1.7 0.8 - 3.3 K/cumm [facility] Monocyte abs 1.3(H) 0.2 - 0.8 K/cumm [facility] Eosinophil abs 0.2 0.0 - 0.5 K/cumm [facility] Basophil abs 0.1 0.0 - 0.1 K/cumm [facility] Neutrophil pct 60.3 % [facility] Comment: Interpretive Data Percent cell count reference ranges are not reported, since discordance with absolute values may lead to misinterpretation of CBC data. Current Interpretive Data was last revised on 2017. Imm gran pct 0.7 % [facility] Comment: Interpretive Data Percent cell count reference ranges are not reported, since discordance with absolute values may lead to misinterpretation of CBC data. Current Interpretive Data was last revised on 2017. Lymphocyte pct 20.4 % [facility] Comment: Interpretive Data Percent cell count reference ranges are not reported, since discordance with absolute values may lead to misinterpretation of CBC data. Current Interpretive Data was last revised on 2017. Monocyte pct 16.0 % [facility] Comment: Interpretive Data Percent cell count reference ranges are not reported, since discordance with absolute values may lead to misinterpretation of CBC data. Current Interpretive Data was last revised on 2017. Eosinophil pct 2.0 % [facility] Comment: Interpretive Data Percent cell count reference ranges are not reported, since discordance with absolute values may lead to misinterpretation of CBC data. Current Interpretive Data was last revised on 2017. Basophil pct 0.6 % [facility] Comment: Interpretive Data Percent cell count reference ranges are not reported, since discordance with absolute values may lead to misinterpretation of CBC data. Current Interpretive Data was last revised on 2017. Blood 06/18/2022 10:5 0 PM CDT 06/18/2022 10:59 PM CDT us Marcelina Lo PRODUCT MANAGEMENT SPECIALIST LAB BLOOD ORDERABLES Final Re sult [facility] Department [place] [address] * Lactate (06/18/2022 10:50 PM CDT) Lactate 1.0 0.7 - 2.0 mmol/L [facility] Blood 06/18/2022 10:5 0 PM CDT 06/18/2022 11:02 PM CDT us Catherine Adams MD LAB BLOOD ORDERABLES Final Result [facility] Department [place] [address] * (ABNORMAL) Triglycerides (06/18/2022 10:50 PM CDT) Triglycerides 226(H) <=149 mg/dL [facility] Comment: Interpretive Data Ages < [...] PM CDT 06/18/2022 10:59 PM CDT Narrative [facility] - 06/18/2022 11:57 PM CDT While on propofol infusion. us Catherine Adams MD LAB BLOOD ORDERABLES Final Result [facility] Department [place] [address] * (ABNORMAL) Phosphorus (06/18/2022 10:50 PM CDT) Phosphorus, pl 5.2(H) 2.3 - 4.5 mg/dL [facility] Blood 06/18/2022 10:5 0 PM CDT 06/18/2022 10:59 PM CDT Marcelina Lo PRODUCT MANAGEMENT SPECIALIST LAB BLOOD ORDERABLES Final Re sult Performing Organization Address [facility] de Phone Number [facility] [place] [address] * (ABNORMAL) Beta-hydroxybutyrate (06/18/2022 10:50 PM CDT) Beta-Hydroxybut yrate 1.3(H) 0.0 - 0.5 mmol/L [facility] Blood 06/18/2022 10:5 0 PM CDT 06/18/2022 10:59 PM CDT Marcelina Lo PRODUCT MANAGEMENT SPECIALIST LAB BLOOD ORDERABLES Final Re sult Performing Organization Address [facility] de Phone Number [facility] Department [place] [address] * Lipase (06/18/2022 10:50 PM CDT) Lipase 22 10 - 99 Units/L [facility] Blood 06/18/2022 10:5 0 PM CDT 06/18/2022 10:59 PM CDT Marcelina Lo PRODUCT MANAGEMENT SPECIALIST LAB BLOOD ORDERABLES Final Re sult Performing Organization Address [facility] de Phone Number [facility] [place] [address] * (ABNORMAL) Magnesium (06/18/2022 10:50 PM CDT) Magnesium 3.1(H) 1.4 - 2.5 mg/dL [facility] Blood 06/18/2022 10:5 0 PM CDT 06/18/2022 11:02 PM CDT us Marcelina Lo PRODUCT MANAGEMENT SPECIALIST LAB BLOOD ORDERABLES Final Re sult [facility] Department [place] [address] * (ABNORMAL) Comprehensive metabolic panel (06/18/2022 10:50 PM CDT) Sodium 140 135 - 145 mmol/L [facility] Potassium, pl 4.3 3.3 - 4.9 mmol/L [facility] Chloride 103 97 - 110 mmol/L [facility] CO2 22 22 - 32 mmol/L [facility] Anion gap 15 2 - 15 mmol/L [facility] BUN 35(H) 8 - 25 mg/dL [facility] Creatinine 5.01(H) 0.80 - 1.30 mg/dL [facility] Glucose 199 70 - 199 mg/dL [facility] Comment: Interpretive Data Fasting glucose [...] 2017. Calcium 8.7 8.5 - 10.3 mg/dL [facility] Bilirubin, total 0.4 0.1 - 1.2 mg/dL [facility] Protein, pl 6.5 6.5 - 8.5 g/dL [facility] Albumin 2.8(L) 3.5 - 5.0 g/dL [facility] Alk phos 163(H) 40 - 130 Units/L [facility] ALT 34 7 - 55 Units/L [facility] AST 56(H) 10 - 50 Units/L [facility] Blood 06/18/2022 10:5 0 PM CDT 06/18/2022 11:02 PM CDT us Marcelina Lo PRODUCT MANAGEMENT SPECIALIST LAB BLOOD ORDERABLES Final Re sult Performing Organization Address City/[facility]/ZIP Co de Phone Number [facility] Department [place] [address] * (ABNORMAL) CBC with auto differential (06/18/2022 10:50 PM CDT) [facility] WBC 8.4 3.8 - 9.9 K/cumm [facility] Hgb 7.5(L) 13.0 - 17.5 g/dL [facility] Hct 23.6(L) 38.9 - 50.3 % [facility] Plt 313 150 - 400 K/cumm [facility] MPV 9.8 9.1 - 12.3 fL [facility] RBC 2.41(L) 4.30 - 5.80 M/cumm [facility] MCV 97.9(H) 81.3 - 96.4 fL [facility] MCH 31.1 27.1 - 33.3 pg [facility] MCHC 31.8(L) 32.3 - 35.7 g/dL [facility] RDW CV 16.5(H) 11.1 - 14.9 % [facility] RDW SD 56.5(H) 35.7 - 48.1 fL [facility] NRBC abs 0.00 0.00 - 0.01 K/cumm [facility] Blood 06/18/2022 10:5 0 PM CDT 06/18/2022 10:59 PM CDT us Marcelina Lo PRODUCT MANAGEMENT SPECIALIST LAB BLOOD ORDERABLES Final Re sult [facility] Department [place] [address] * (ABNORMAL) POCT glucose (06/18/2022 7:51 PM CDT) Pathologist [facility] Glucose, POC 256(H) 70 - 199 mg/dL [facility] Blood 06/18/2022 7:51 PM CDT 06/18/2022 7:51 PM CDT Catherine Adams MD LAB POCT ORDERABLES - DEVIC E Final Result Performing Organization Address [facility] Co de Phone Number [facility] Department [place] [address] * ECG 12 lead (06/18/2022 6:40 PM CDT) Ventricular Rate EKG/Min 133 BPM [facility] Atrial Rate 147 BPM [facility] QRS-Interval (MSEC) 102 ms [facility] QT-Interval (MSEC) 332 ms [facility] QTc 494 ms [facility] R [place] -43 degrees [facility] T [place] 123 degrees [facility] Diagnosis Atrial fibrillation with rapid ventricular response [...] anyterior leads Confirmed by KENN BILLINGSLEY M.D ([id number]) on 06/21/2022 1:28:53 PM [facility] 06/18/2022 6:40 PM CDT 06/21/2022 1:28 PM CDT Conrad Weston Chi, MD ECG ORDERABLES Final Res ult Performing Organization Address City/[facility]/ZIP Co de Phone Number [facility] * POCT glucose (06/18/2022 5:11 PM CDT) Pathologist [facility] Glucose, POC 168 70 - 199 mg/dL [facility] Blood 06/18/2022 5:11 PM CDT 06/18/2022 5:11 PM CDT Catherine Adams MD LAB POCT ORDERABLES - DEVIC E Final Result Performing Organization Address [facility]/ZIP Co de Phone Number [facility] [place] [address] * POCT glucose (06/18/2022 4:16 PM CDT) Glucose, POC 181 70 - 199 mg/dL [facility] Blood 06/18/2022 4:16 PM CDT 06/18/2022 4:16 PM CDT Catherine Adams MD LAB POCT ORDERABLES - DEVIC E Final Result Performing Organization Address [facility] de Phone Number [facility] [place] [address] * (ABNORMAL) POCT glucose (06/18/2022 2:38 PM CDT) Glucose, POC 264(H) 70 - 199 mg/dL [facility] Blood 06/18/2022 2:38 PM CDT 06/18/2022 2:38 PM CDT Catherine Adams MD LAB POCT ORDERABLES - DEVIC E Final Result Performing Organization Address [facility] Co de Phone Number [facility] [place] [address] * (ABNORMAL) POCT glucose (06/18/2022 1:34 PM CDT) Glucose, POC 376(H) 70 - 199 mg/dL [facility] Blood 06/18/2022 1:34 PM CDT 06/18/2022 1:34 PM CDT Catherine Adams MD LAB POCT ORDERABLES - DEVIC E Final Result Performing Organization Address City/[facility] Co de Phone Number [facility] Department [place] [address] * (ABNORMAL) Beta-hydroxybutyrate (06/18/2022 1:32 PM CDT) Beta-Hydroxybut yrate 0.9(H) 0.0 - 0.5 mmol/L [facility] Blood 06/18/2022 1:32 PM CDT 06/18/2022 1:48 PM CDT us Catherine Adams MD LAB BLOOD ORDERABLES Final Result [facility] Department [place] [address] * IR Central Line Placement > 5 [...] tunneled hemodialysis catheter placement. ATTENDING PRESENCE: ??Payam lAlison M.D., the attending radiologist was present from the beginning to the end of the procedure. ?? SEDATION: Patient was intubated and sedated upon arrival to procedure room. ??The patient did not require additional sedation for the procedure. ?? TECHNIQUE: ?? The risks, benefits and alternatives were discussed and informed consent was obtained. ??Prior to beginning the procedure, [place] Protocol was used to confirm the patient's [...] was obtained. Prior to beginning the procedure, [place] Protocol was used to confirm the patient's [...] Glucose, POC 170 70 - 199 mg/dL [facility] Blood 06/18/2022 11:3 4 AM CDT 06/18/2022 11:34 AM CDT Catherine Adams MD LAB POCT ORDERABLES - DEVIC E Final Result Performing Organization Address City/[facility]/ZIP Co de Phone Number [facility] [place] [address] * (ABNORMAL) Blood gas, arterial (06/18/2022 10:14 AM CDT) pH, Art 7.36 7.35 - 7.45 [facility] PCO2, Arterial 37 35 - 45 mmHg [facility] PO2, Arterial 74(L) 83 - 108 mmHg [facility] HCO3 Art (Calculated) 21 20 - 30 mmol/L [facility] BE, art -4 mmol/L [facility] Comment: Interpretive Data No Reference Range Established Current Interpretive Data was last revised on 2017 O2 Sat Art (Measured) 94 90 - 95 % [facility] Blood 06/18/2022 10:1 4 AM CDT 06/18/2022 10:23 AM CDT Marcelina Lo NP LAB BLOOD ORDERABLES Final Re sult Performing Organization Address [facility]/ZIP Co de Phone Number [facility] [place] [address] * POCT glucose (06/18/2022 10:13 AM CDT) Glucose, POC 83 70 - 199 mg/dL [facility] Blood 06/18/2022 10:1 3 AM CDT 06/18/2022 10:13 AM CDT Catherine Adams MD LAB POCT ORDERABLES - DEVIC E Final Result Performing Organization Address City/[facility]/ZIP Co de Phone Number [facility] [place] [address] * (ABNORMAL) eGFR (06/18/2022 8:52 AM CDT) eGFR 10(L) 90 - 130 mL/min/1. 73 m2 ALESSANDRA [...] 8:52 AM CDT 06/18/2022 9:01 AM CDT us Marcelina Lo NP LAB BLOOD ORDERABLES Final Re sult [facility] Department [place] [address] * Vancomycin level random (06/18/2022 8:52 AM CDT) Vancomycin random 51.8 mcg/mL [facility] Comment: Repeated on Dilution Interpretive Data No reference ranges have been established for random drug levels. Current Interpretive Data was last revised on 2020. Blood 06/18/2022 8:52 AM CDT 06/18/2022 8:58 AM CDT us Catherine Adams MD LAB BLOOD ORDERABLES Final Result [facility] Department [place] [address] * (ABNORMAL) Differential, auto (06/18/2022 8:52 AM CDT) Neutrophil abs 5.2 1.7 - 6.5 K/cumm [facility] Imm gran abs 0.1 0.0 - 0.1 K/cumm [facility] Lymphocyte abs 1.8 0.8 - 3.3 K/cumm [facility] Monocyte abs 1.6(H) 0.2 - 0.8 K/cumm [facility] Eosinophil abs 0.2 0.0 - 0.5 K/cumm [facility] Basophil abs 0.1 0.0 - 0.1 K/cumm [facility] Neutrophil pct 58.4 % [facility] Comment: Interpretive Data Percent cell count reference ranges are not reported, since discordance with absolute values may lead to misinterpretation of CBC data. Current Interpretive Data was last revised on 2017. Imm gran pct 1.0 % [facility] Comment: Interpretive Data Percent cell count reference ranges are not reported, since discordance with absolute values may lead to misinterpretation of CBC data. Current Interpretive Data was last revised on 2017. Lymphocyte pct 19.8 % [facility] Comment: Interpretive Data Percent cell count reference ranges are not reported, since discordance with absolute values may lead to misinterpretation of CBC data. Current Interpretive Data was last revised on 2017. Monocyte pct 17.5 % [facility] Comment: Interpretive Data Percent cell count reference ranges are not reported, since discordance with absolute values may lead to misinterpretation of CBC data. Current Interpretive Data was last revised on 2017. Eosinophil pct 2.6 % [facility] Comment: Interpretive Data Percent cell count reference ranges are not reported, since discordance with absolute values may lead to misinterpretation of CBC data. Current Interpretive Data was last revised on 2017. Basophil pct 0.7 % [facility] Comment: Interpretive Data Percent cell count reference ranges are not reported, since discordance with absolute values may lead to misinterpretation of CBC data. Current Interpretive Data was last revised on 2017. Blood 06/18/2022 8:52 AM CDT 06/18/2022 8:58 AM CDT Marcelina Lo PRODUCT MANAGEMENT SPECIALIST LAB BLOOD ORDERABLES Final Re sult Performing Organization Address [facility] Co de Phone Number [facility] Department [place] [address] * (ABNORMAL) Magnesium (06/18/2022 8:52 AM CDT) Pathologist [facility] Magnesium 2.9(H) 1.4 - 2.5 mg/dL [facility] Blood 06/18/2022 8:52 AM CDT 06/18/2022 8:58 AM CDT Marcelina Lo PRODUCT MANAGEMENT SPECIALIST LAB BLOOD ORDERABLES Final Re sult Performing Organization Address [facility] de Phone Number [facility] [place] [address] * (ABNORMAL) Comprehensive metabolic panel (06/18/2022 8:52 AM CDT) Pathologist [facility] Sodium 143 135 - 145 mmol/L [facility] Potassium, pl 4.0 3.3 - 4.9 mmol/L [facility] Chloride 104 97 - 110 mmol/L [facility] CO2 23 22 - 32 mmol/L [facility] Anion gap 16(H) 2 - 15 mmol/L [facility] BUN 40(H) 8 - 25 mg/dL [facility] Creatinine 6.24(H) 0.80 - 1.30 mg/dL [facility] Glucose 116 70 - 199 mg/dL [facility] Comment: Interpretive Data Fasting glucose [...] 2017. Calcium 9.5 8.5 - 10.3 mg/dL [facility] Bilirubin, total 0.4 0.1 - 1.2 mg/dL [facility] Protein, pl 7.4 6.5 - 8.5 g/dL [facility] Albumin 3.3(L) 3.5 - 5.0 g/dL [facility] Alk phos 197(H) 40 - 130 Units/L [facility] ALT 36 7 - 55 Units/L [facility] AST 60(H) 10 - 50 Units/L [facility] Blood 06/18/2022 8:52 AM CDT 06/18/2022 8:58 AM CDT us Marcelina Lo PRODUCT MANAGEMENT SPECIALIST LAB BLOOD ORDERABLES Final Re sult [facility] Department [place] [address] * (ABNORMAL) CBC with auto differential (06/18/2022 8:52 AM CDT) WBC 8.9 3.8 - 9.9 K/cumm [facility] Hgb 8.8(L) 13.0 - 17.5 g/dL [facility] Hct 27.1(L) 38.9 - 50.3 % [facility] Plt 283 150 - 400 K/cumm [facility] MPV 9.7 9.1 - 12.3 fL [facility] RBC 2.81(L) 4.30 - 5.80 M/cumm [facility] MCV 96.4 81.3 - 96.4 fL [facility] MCH 31.3 27.1 - 33.3 pg [facility] MCHC 32.5 32.3 - 35.7 g/dL [facility] RDW CV 16.2(H) 11.1 - 14.9 % [facility] RDW SD 54.0(H) 35.7 - 48.1 fL [facility] NRBC abs 0.00 0.00 - 0.01 K/cumm [facility] Blood 06/18/2022 8:52 AM CDT 06/18/2022 8:58 AM CDT us Marcelina Lo PRODUCT MANAGEMENT SPECIALIST LAB BLOOD ORDERABLES Final Re sult Performing Organization Address City/[facility]/ZIP Co de Phone Number [facility] [place] [address] * POCT glucose (06/18/2022 8:49 AM CDT) Glucose, POC 109 70 - 199 mg/dL [facility] Blood 06/18/2022 8:49 AM CDT 06/18/2022 8:49 AM CDT us Catherine Adams MD LAB POCT ORDERABLES - DEVIC E Final Result Performing Organization Address City/[facility] Co de Phone Number [facility] [place] [address] * POCT glucose (06/18/2022 6:53 AM CDT) Glucose, POC 145 70 - 199 mg/dL [facility] Blood 06/18/2022 6:53 AM CDT 06/18/2022 6:53 AM CDT us Catherine Adams MD LAB POCT ORDERABLES - DEVIC E Final Result Performing Organization Address City/[facility]/ZIP Co de Phone Number [facility] Department [place] [address] * POCT glucose (06/18/2022 6:11 AM CDT) Glucose, POC 164 70 - 199 mg/dL [facility] Blood 06/18/2022 6:11 AM CDT 06/18/2022 6:11 AM CDT Catherine Adams MD LAB POCT ORDERABLES - DEVIC E Final Result [facility] Department [place] [address] * XR Chest 1 View (06/18/2022 5:48 [...] CDT) aPTT 63(H) 27 - 37 sec [facility] Comment: Interpretive Data Therapeutic heparin range: 60.0 - 94.0 seconds. Based on correlation with therapeutic heparin activity range of 0.3-0.7 Units/mL. Current interpretive data was last revised on 2020. Blood 06/18/2022 5:13 AM CDT 06/18/2022 5:42 AM CDT Narrative [facility] - 06/18/2022 6:05 AM CDT Draw STAT PTT 6 hrs after initiation of heparin infusion, draw STAT PTT 6 hours after each dose/rate change, and every 6 hours until 2 consecutive PTTs are within therapeutic range. Once two consecutive PTT's are therapeutic (60-94.9 seconds), then draw PTT every AM until heparin is discontinued. Catherine Adams MD LAB BLOOD ORDERABLES Final Result [facility] Department [place] [address] * (ABNORMAL) Blood gas, arterial (06/18/2022 5:13 AM CDT) pH, Art 7.33(L) 7.35 - 7.45 [facility] PCO2, Arterial 39 35 - 45 mmHg [facility] PO2, Arterial 92 83 - 108 mmHg [facility] HCO3 Art (Calculated) 21 20 - 30 mmol/L [facility] BE, art -5 mmol/L [facility] Comment: Interpretive Data No Reference Range Established Current Interpretive Data was last revised on 2017 O2 Sat Art (Measured) 96(H) 90 - 95 % [facility] Blood 06/18/2022 5:13 AM CDT 06/18/2022 5:34 AM CDT us Marcelina Lo PRODUCT MANAGEMENT SPECIALIST LAB BLOOD ORDERABLES Final Re sult Performing Organization Address City/[facility] Co de Phone Number [facility] [place] [address] * (ABNORMAL) POCT glucose (06/18/2022 5:10 AM CDT) Glucose, POC 205(H) 70 - 199 mg/dL [facility] Blood 06/18/2022 5:10 AM CDT 06/18/2022 5:10 AM CDT Catherine Adams MD LAB POCT ORDERABLES - DEVIC E Final Result Performing Organization Address [facility] Co de Phone Number [facility] Department [place] [address] * POCT glucose (06/18/2022 4:08 AM CDT) Glucose, POC 186 70 - 199 mg/dL [facility] Blood 06/18/2022 4:08 AM CDT 06/18/2022 4:08 AM CDT Catherine Adams MD LAB POCT ORDERABLES - DEVIC E Final Result Performing Organization Address City/[facility] Co de Phone Number [facility] [place] [address] * POCT glucose (06/18/2022 3:24 AM CDT) Glucose, POC 179 70 - 199 mg/dL [facility] Blood 06/18/2022 3:24 AM CDT 06/18/2022 3:24 AM CDT us Catherine Adams MD LAB POCT ORDERABLES - DEVIC E Final Result Performing Organization Address [facility] de Phone Number [facility] [place] [address] * POCT glucose (06/18/2022 2:25 AM CDT) Glucose, POC 132 70 - 199 mg/dL [facility] Blood 06/18/2022 2:25 AM CDT 06/18/2022 2:25 AM CDT us Catherine Adams MD LAB POCT ORDERABLES - DEVIC E Final Result Performing Organization Address [facility] Phone Number [facility] [place] [address] * POCT glucose (06/18/2022 1:27 AM CDT) Glucose, POC 105 70 - 199 mg/dL [facility] Blood 06/18/2022 1:27 AM CDT 06/18/2022 1:27 AM CDT us Catherine Adams MD LAB POCT ORDERABLES - DEVIC E Final Result Performing Organization Address [facility] Phone Number [facility] Department [place] [address] * POCT glucose (06/17/2022 10:45 PM CDT) Glucose, POC 138 70 - 199 mg/dL [facility] Blood 06/17/2022 10:4 5 PM CDT 06/17/2022 10:45 PM CDT us Catherine Adams MD LAB POCT ORDERABLES - DEVIC E Final Result Performing Organization Address City/[facility] Co de Phone Number [facility] [place] [address] * (ABNORMAL) Hemoglobin and hematocrit (06/17/2022 10:31 PM CDT) [facility] Hgb 7.9(L) 13.0 - 17.5 g/dL [facility] Hct 24.0(L) 38.9 - 50.3 % [facility] Blood 06/17/2022 10:3 1 PM CDT 06/17/2022 10:45 PM CDT us Tyra De La Torre MD LAB BLOOD ORDERABLES Final Resu lt Performing Organization Address [facility] Co de Phone Number [facility] [place] [address] * Type and screen (06/17/2022 10:31 PM CDT) [facility] Maribel, indirect Negative [facility] ABO Rh A Positive [facility] Blood 06/17/2022 10:3 1 PM CDT 06/17/2022 10:53 PM CDT Narrative [facility] - 06/17/2022 11:49 PM CDT Has the patient had Daratumumab or Isatuximab in the past 6 months?->Unknown us Catherine Adams MD LAB BLOOD BANK TEST ORDERAB LES Final Result Performing Organization Address [facility] Co de Phone Number [facility] [place] [address] * (ABNORMAL) eGFR (06/17/2022 9:17 PM CDT) [facility] eGFR 11(L) 90 - 130 mL/min/1. 73 m2 [facility] Comment: Interpretive Data Reference Interval [...] BLOOD ORDERABLES Final Result Performing Organization Address City/[facility]/ZIP Co de Phone Number [facility] [place] [place] [address] * (ABNORMAL) Magnesium (06/17/2022 9:17 PM CDT) Magnesium 2.9(H) 1.4 - 2.5 mg/dL [facility] Blood 06/17/2022 9:17 PM CDT 06/17/2022 9:27 PM CDT Catherine Adams MD LAB BLOOD ORDERABLES Final Result Performing Organization Address City/[facility] Co de Phone Number [facility] [place] [place] [address] * (ABNORMAL) Comprehensive metabolic panel (06/17/2022 9:17 PM CDT) Sodium 142 135 - 145 mmol/L [facility] Potassium, pl 3.2(L) 3.3 - 4.9 mmol/L [facility] Chloride 104 97 - 110 mmol/L [facility] CO2 23 22 - 32 mmol/L [facility] Anion gap 15 2 - 15 mmol/L [facility] BUN 41(H) 8 - 25 mg/dL [facility] Creatinine 5.65(H) 0.80 - 1.30 mg/dL [facility] Glucose 121 70 - 199 mg/dL [facility] Comment: Interpretive Data Fasting glucose [...] 2017. Calcium 9.3 8.5 - 10.3 mg/dL [facility] Bilirubin, total 0.4 0.1 - 1.2 mg/dL [facility] Protein, pl 6.4(L) 6.5 - 8.5 g/dL [facility] Albumin 2.7(L) 3.5 - 5.0 g/dL [facility] Alk phos 181(H) 40 - 130 Units/L [facility] ALT 33 7 - 55 Units/L [facility] AST 52(H) 10 - 50 Units/L [facility] Blood 06/17/2022 9:17 PM CDT 06/17/2022 9:27 PM CDT us Catherine Adams MD LAB BLOOD ORDERABLES Final Result [facility] Department [place] [address] * (ABNORMAL) Differential, auto (06/17/2022 9:17 PM CDT) Neutrophil abs 4.5 1.7 - 6.5 K/cumm [facility] Imm gran abs 0.1 0.0 - 0.1 K/cumm [facility] Lymphocyte abs 1.5 0.8 - 3.3 K/cumm [facility] Monocyte abs 1.4(H) 0.2 - 0.8 K/cumm [facility] Eosinophil abs 0.3 0.0 - 0.5 K/cumm [facility] Basophil abs 0.0 0.0 - 0.1 K/cumm [facility] Neutrophil pct 58.5 % [facility] Comment: Interpretive Data Percent cell count reference ranges are not reported, since discordance with absolute values may lead to misinterpretation of CBC data. Current Interpretive Data was last revised on 2017. Imm gran pct 1.0 % [facility] Comment: Interpretive Data Percent cell count reference ranges are not reported, since discordance with absolute values may lead to misinterpretation of CBC data. Current Interpretive Data was last revised on 2017. Lymphocyte pct 19.0 % [facility] Comment: Interpretive Data Percent cell count reference ranges are not reported, since discordance with absolute values may lead to misinterpretation of CBC data. Current Interpretive Data was last revised on 2017. Monocyte pct 17.6 % [facility] Comment: Interpretive Data Percent cell count reference ranges are not reported, since discordance with absolute values may lead to misinterpretation of CBC data. Current Interpretive Data was last revised on 2017. Eosinophil pct 3.5 % [facility] Comment: Interpretive Data Percent cell count reference ranges are not reported, since discordance with absolute values may lead to misinterpretation of CBC data. Current Interpretive Data was last revised on 2017. Basophil pct 0.4 % [facility] Comment: Interpretive Data Percent cell count reference ranges are not reported, since discordance with absolute values may lead to misinterpretation of CBC data. Current Interpretive Data was last revised on 2017. Blood 06/17/2022 9:17 PM CDT 06/17/2022 9:26 PM CDT us Marcelina Lo NP LAB BLOOD ORDERABLES Final Re sult Performing Organization Address [facility] Co de Phone Number [facility] [place] [place] [address] * Lactate (06/17/2022 9:17 PM CDT) Lactate 1.3 0.7 - 2.0 mmol/L [facility] Blood 06/17/2022 9:17 PM CDT 06/17/2022 9:29 PM CDT us Catherine Adams MD LAB BLOOD ORDERABLES Final Result Performing Organization Address [facility] de Phone Number [facility] Department [place] [address] * (ABNORMAL) Triglycerides (06/17/2022 9:17 PM CDT) Triglycerides 272(H) <=149 mg/dL [facility] Comment: Interpretive Data Ages < [...] PM CDT 06/17/2022 9:27 PM CDT Narrative [facility] - 06/17/2022 10:11 PM CDT While on propofol infusion. Catherine Adams MD LAB BLOOD ORDERABLES Final Result [facility] [place] [address] * (ABNORMAL) Phosphorus (06/17/2022 9:17 PM CDT) Phosphorus, pl 5.8(H) 2.3 - 4.5 mg/dL [facility] Blood 06/17/2022 9:17 PM CDT 06/17/2022 9:27 PM CDT Marcelina Lo PRODUCT MANAGEMENT SPECIALIST LAB BLOOD ORDERABLES Final Re sult Performing Organization Address [facility] Co de Phone Number [facility] Department [place] [address] * Beta-hydroxybutyrate (06/17/2022 9:17 PM CDT) Beta-Hydroxybut yrate 0.1 0.0 - 0.5 mmol/L [facility] Blood 06/17/2022 9:17 PM CDT 06/17/2022 9:26 PM CDT Marcelina Lo PRODUCT MANAGEMENT SPECIALIST LAB BLOOD ORDERABLES Final Re sult Performing Organization Address City/[facility]/ZIP Co de Phone Number [facility] Department [place] [address] * Lipase (06/17/2022 9:17 PM CDT) Pathologist [facility] Lipase 22 10 - 99 Units/L [facility] Blood 06/17/2022 9:17 PM CDT 06/17/2022 9:27 PM CDT Marcelina Lo PRODUCT MANAGEMENT SPECIALIST LAB BLOOD ORDERABLES Final Re sult [facility] Department [place] [address] * (ABNORMAL) CBC with auto differential (06/17/2022 9:17 PM CDT) [facility] WBC 7.7 3.8 - 9.9 K/cumm [facility] Hgb 6.2(C) 13.0 - 17.5 g/dL [facility] Comment:Critical result call ed to and read back by MINERVA CLINTON RN on 06 17 2022 at 2214 to BRIAN BATES. Hct 19.1(L) 38.9 - 50.3 % [facility] Plt 300 150 - 400 K/cumm [facility] MPV 10.1 9.1 - 12.3 fL [facility] RBC 1.98(L) 4.30 - 5.80 M/cumm [facility] MCV 96.5(H) 81.3 - 96.4 fL [facility] MCH 31.3 27.1 - 33.3 pg [facility] MCHC 32.5 32.3 - 35.7 g/dL [facility] RDW CV 15.9(H) 11.1 - 14.9 % [facility] RDW SD 50.9(H) 35.7 - 48.1 fL [facility] NRBC abs 0.00 0.00 - 0.01 K/cumm [facility] Blood 06/17/2022 9:17 PM CDT 06/17/2022 9:26 PM CDT Marcelina Lo PRODUCT MANAGEMENT SPECIALIST LAB BLOOD ORDERABLES Final Re sult [facility] Department [place] [address] * POCT glucose (06/17/2022 8:52 PM CDT) Glucose, POC 129 70 - 199 mg/dL [facility] Blood 06/17/2022 8:52 PM CDT 06/17/2022 8:52 PM CDT Catherine Adams MD LAB POCT ORDERABLES - DEVIC E Final Result Performing Organization Address City/[facility] Co de Phone Number [facility] Department [place] [address] * POCT glucose (06/17/2022 7:40 PM CDT) Glucose, POC 118 70 - 199 mg/dL [facility] Blood 06/17/2022 7:40 PM CDT 06/17/2022 7:40 PM CDT Catherine Adams MD LAB POCT ORDERABLES - DEVIC E Final Result Performing Organization Address City/[facility] Co de Phone Number [facility] Department [place] [address] * AR INSJ NON-TUNNELED CENTRAL VENOUS CATH AGE 5 YR/> (06/17/2022 7:30 PM CDT) Narrative Rufino Flores MD - 06/17/2022 7:30 PM CDT Aj Poe MD ? 06/17/2022 ??7:37 PM Central Line Insertion Date/Time: 06/17/2022 7:30 PM Performed by: Aj Poe MD Authorized by: Aj Poe MD [place] Protocol: RN Notified of Procedure: yes ?? 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 and risks, benefits, alternatives [...] Glucose, POC 133 70 - 199 mg/dL [facility] Blood 06/17/2022 5:11 PM CDT 06/17/2022 5:11 PM CDT Catherine Adams MD LAB POCT ORDERABLES - DEVIC E Final Result [facility] Department [place] [address] * POCT glucose (06/17/2022 3:01 PM CDT) Glucose, POC 142 70 - 199 mg/dL [facility] Blood 06/17/2022 3:01 PM CDT 06/17/2022 3:01 PM CDT Catherine Adams MD LAB POCT ORDERABLES - DEVIC E Final Result Performing Organization Address City/[facility] Co de Phone Number [facility] [place] [address] * POCT glucose (06/17/2022 1:50 PM CDT) Glucose, POC 141 70 - 199 mg/dL [facility] Blood 06/17/2022 1:50 PM CDT 06/17/2022 1:50 PM CDT Catherine Adams MD LAB POCT ORDERABLES - DEVIC E Final Result Performing Organization Address [facility] Co de Phone Number [facility] [place] [address] * POCT glucose (06/17/2022 12:59 PM CDT) Glucose, POC 151 70 - 199 mg/dL [facility] Blood 06/17/2022 12:5 9 PM CDT 06/17/2022 12:59 PM CDT Catherine Adams MD LAB POCT ORDERABLES - DEVIC E Final Result Performing Organization Address City/[facility] de Phone Number [facility] [place] [address] * POCT glucose (06/17/2022 11:55 AM CDT) Glucose, POC 167 70 - 199 mg/dL [facility] Blood 06/17/2022 11:5 5 AM CDT 06/17/2022 11:55 AM CDT us Catherine Adams MD LAB POCT ORDERABLES - DEVIC E Final Result Performing Organization Address [facility] Co de Phone Number [facility] [place] [address] * POCT glucose (06/17/2022 10:51 AM CDT) Glucose, POC 185 70 - 199 mg/dL [facility] Blood 06/17/2022 10:5 1 AM CDT 06/17/2022 10:51 AM CDT Catherine Adams MD LAB POCT ORDERABLES - DEVIC E Final Result Performing Organization Address [facility] de Phone Number [facility] Department [place] [address] * POCT glucose (06/17/2022 10:11 AM CDT) Glucose, POC 119 70 - 199 mg/dL [facility] Blood 06/17/2022 10:1 1 AM CDT 06/17/2022 10:11 AM CDT Catherine Adams MD LAB POCT ORDERABLES - DEVIC E Final Result Performing Organization Address City/[facility] [place] [address] * POCT glucose (06/17/2022 9:39 AM CDT) Glucose, POC 181 70 - 199 mg/dL [facility] Blood 06/17/2022 9:39 AM CDT 06/17/2022 9:39 AM CDT Catherine Adams MD LAB POCT ORDERABLES - DEVIC E Final Result Performing Organization Address [facility]/ZIP Co de Phone Number [facility]DRA CARRION [facility] Department [place] [address] * Blood culture Blood (06/17/2022 8:13 AM CDT) Report Final Report: No growth [facility] Blood 06/17/2022 8:13 AM CDT 06/17/2022 8:24 AM CDT Narrative [facility]A CARRION - 06/21/2022 12:00 PM CDT 1. ?Blood [...] organism identification may be performed using the TV[employer] Gram-Positive Blood Culture Assay. This assay detects microbial DNA in positive blood culture broth via hybridization of target DNA to capture oligonucleotides on a microarray. This assay has been cleared by the [place] Food and Drug Administration and its performance characteristics have been verified by the [facility] Microbiology Laboratory. 5. ?For questions about this culture, contact the Microbiology Laboratory at [phone]. Interpretive data was last revised on 2020. Catherine Adams MD LAB MICROBIOLOGY - GENERAL ORDERABLES Final Result Performing Organization Address City/[facility] Co de Phone Number [facility]A Wise [facility] Department [place] [address] * Blood culture Blood (06/17/2022 8:13 AM CDT) Report Final Report: No growth [facility] Blood 06/17/2022 8:13 AM CDT 06/17/2022 8:23 AM CDT Narrative [facility]A CARR[facility] - 06/21/2022 12:00 PM CDT 1. ?Blood [...] organism identification may be performed using the [employer] Gram-Positive Blood Culture Assay. This assay detects microbial DNA in positive blood culture broth via hybridization of target DNA to capture oligonucleotides on a microarray. This assay has been cleared by the [place] Food and Drug Administration and its performance characteristics have been verified by the [facility] Microbiology Laboratory. 5. ?For questions about this culture, contact the Microbiology Laboratory at [phone]. Interpretive data was last revised on 2020. Catherine Adams MD LAB MICROBIOLOGY - GENERAL ORDERABLES Final Result [facility]A CARR[facility] Department [place] [address] * (ABNORMAL) eGFR (06/17/2022 8:02 AM CDT) eGFR 13(L) 90 - 130 mL/min/1. 73 m2 [facility] Comment: Interpretive Data Reference Interval [...] 06/17/2022 8:25 AM CDT us Marcelina Lo PRODUCT MANAGEMENT SPECIALIST LAB BLOOD ORDERABLES Final Re sult [facility] Department [place] [address] * (ABNORMAL) Differential, auto (06/17/2022 8:02 AM CDT) [facility] Neutrophil abs 5.2 1.7 - 6.5 K/cumm [facility] Imm gran abs 0.1 0.0 - 0.1 K/cumm [facility] Lymphocyte abs 1.6 0.8 - 3.3 K/cumm [facility] Monocyte abs 1.3(H) 0.2 - 0.8 K/cumm [facility] Eosinophil abs 0.2 0.0 - 0.5 K/cumm [facility] Basophil abs 0.1 0.0 - 0.1 K/cumm [facility] Neutrophil pct 61.7 % [facility] Comment: Interpretive Data Percent cell count reference ranges are not reported, since discordance with absolute values may lead to misinterpretation of CBC data. Current Interpretive Data was last revised on 2017. Imm gran pct 1.3 % [facility] Comment: Interpretive Data Percent cell count reference ranges are not reported, since discordance with absolute values may lead to misinterpretation of CBC data. Current Interpretive Data was last revised on 2017. Lymphocyte pct 18.6 % [facility] Comment: Interpretive Data Percent cell count reference ranges are not reported, since discordance with absolute values may lead to misinterpretation of CBC data. Current Interpretive Data was last revised on 2017. Monocyte pct 15.2 % [facility] Comment: Interpretive Data Percent cell count reference ranges are not reported, since discordance with absolute values may lead to misinterpretation of CBC data. Current Interpretive Data was last revised on 2017. Eosinophil pct 2.6 % [facility] Comment: Interpretive Data Percent cell count reference ranges are not reported, since discordance with absolute values may lead to misinterpretation of CBC data. Current Interpretive Data was last revised on 2017. Basophil pct 0.6 % [facility] Comment: Interpretive Data Percent cell count reference ranges are not reported, since discordance with absolute values may lead to misinterpretation of CBC data. Current Interpretive Data was last revised on 2017. Blood 06/17/2022 8:02 AM CDT 06/17/2022 8:25 AM CDT us Marcelina Lo PRODUCT MANAGEMENT SPECIALIST LAB BLOOD ORDERABLES Final Re sult [facility] Department [place] [address] * (ABNORMAL) Magnesium (06/17/2022 8:02 AM CDT) Magnesium 2.9(H) 1.4 - 2.5 mg/dL [facility] Blood 06/17/2022 8:02 AM CDT 06/17/2022 8:25 AM CDT us Marcelina Lo PRODUCT MANAGEMENT SPECIALIST LAB BLOOD ORDERABLES Final Re sult [facility] Department [place] [address] * (ABNORMAL) Comprehensive metabolic panel (06/17/2022 8:02 AM CDT) Sodium 140 135 - 145 mmol/L [facility] Potassium, pl 3.9 3.3 - 4.9 mmol/L [facility] Chloride 104 97 - 110 mmol/L [facility] CO2 24 22 - 32 mmol/L [facility] Anion gap 12 2 - 15 mmol/L [facility] BUN 41(H) 8 - 25 mg/dL [facility] Creatinine 5.16(H) 0.80 - 1.30 mg/dL [facility] Glucose 206(H) 70 - 199 mg/dL [facility] Comment: Interpretive Data Fasting glucose [...] 2017. Calcium 9.1 8.5 - 10.3 mg/dL [facility] Bilirubin, total 0.4 0.1 - 1.2 mg/dL [facility] Protein, pl 6.9 6.5 - 8.5 g/dL [facility] Albumin 3.0(L) 3.5 - 5.0 g/dL [facility] Alk phos 199(H) 40 - 130 Units/L [facility] ALT 35 7 - 55 Units/L [facility] AST 43 10 - 50 Units/L [facility] Blood 06/17/2022 8:02 AM CDT 06/17/2022 8:25 AM CDT Marcelina Lo PRODUCT MANAGEMENT SPECIALIST LAB BLOOD ORDERABLES Final Re sult Performing Organization Address City/[facility]/ZIP Co de Phone Number [facility] Department [place] [address] * (ABNORMAL) CBC with auto differential (06/17/2022 8:02 AM CDT) WBC 8.5 3.8 - 9.9 K/cumm [facility] Hgb 7.9(L) 13.0 - 17.5 g/dL [facility] Hct 24.6(L) 38.9 - 50.3 % [facility] Plt 262 150 - 400 K/cumm [facility] MPV 10.1 9.1 - 12.3 fL [facility] RBC 2.55(L) 4.30 - 5.80 M/cumm [facility] MCV 96.5(H) 81.3 - 96.4 fL [facility] MCH 31.0 27.1 - 33.3 pg [facility] MCHC 32.1(L) 32.3 - 35.7 g/dL [facility] RDW CV 15.6(H) 11.1 - 14.9 % [facility] RDW SD 49.9(H) 35.7 - 48.1 fL [facility] NRBC abs 0.00 0.00 - 0.01 K/cumm [facility] Blood 06/17/2022 8:02 AM CDT 06/17/2022 8:25 AM CDT Marcelina Lo PRODUCT MANAGEMENT SPECIALIST LAB BLOOD ORDERABLES Final Re sult Performing Organization Address City/[facility]/ZIP Co de Phone Number [facility] Department [place] [address] * (ABNORMAL) POCT glucose (06/17/2022 7:37 AM CDT) [facility] Glucose, POC 202(H) 70 - 199 mg/dL [facility] Blood 06/17/2022 7:37 AM CDT 06/17/2022 7:37 AM CDT Catherine Adams MD LAB POCT ORDERABLES - DEVIC E Final Result Performing Organization Address City/[facility]/[place] [address] * (ABNORMAL) aPTT (06/17/2022 6:14 AM CDT) [facility] aPTT 64(H) 27 - 37 sec [facility] Comment: Interpretive Data Therapeutic heparin range: 60.0 - 94.0 seconds. Based on correlation with therapeutic heparin activity range of 0.3-0.7 Units/mL. Current interpretive data was last revised on 2020. Blood 06/17/2022 6:14 AM CDT 06/17/2022 7:27 AM CDT Narrative [facility] - 06/17/2022 7:50 AM CDT Draw STAT PTT 6 hrs after initiation of heparin infusion, draw STAT PTT 6 hours after each dose/rate change, and every 6 hours until 2 consecutive PTTs are within therapeutic range. Once two consecutive PTT's are therapeutic (60-94.9 seconds), then draw PTT every AM until heparin is discontinued. us Catherine Adams MD LAB BLOOD ORDERABLES Final Result [facility] [place] [address] * (ABNORMAL) POCT glucose (06/17/2022 6:13 AM CDT) [facility] Glucose, POC 234(H) 70 - 199 mg/dL [facility] Blood 06/17/2022 6:13 AM CDT 06/17/2022 6:13 AM CDT us Catherine Adams MD LAB POCT ORDERABLES - DEVIC E Final Result [facility] Department [place] [address] * XR Chest 1 View (06/17/2022 5:29 [...] * POCT glucose (06/17/2022 4:53 AM CDT) Glucose, POC 176 70 - 199 mg/dL [facility] Blood 06/17/2022 4:53 AM CDT 06/17/2022 4:53 AM CDT Catherine Adams MD LAB POCT ORDERABLES - DEVIC E Final Result Performing Organization Address [facility] de Phone Number [facility] [place] [place] [address] * (ABNORMAL) Blood gas, arterial (06/17/2022 3:46 AM CDT) [facility] pH, Art 7.32(L) 7.35 - 7.45 [facility] PCO2, Arterial 44 35 - 45 mmHg [facility] PO2, Arterial 93 83 - 108 mmHg [facility] HCO3 Art (Calculated) 24 20 - 30 mmol/L [facility] BE, art -3 mmol/L [facility] Comment: Interpretive Data No Reference Range Established Current Interpretive Data was last revised on 2017 O2 Sat Art (Measured) 96(H) 90 - 95 % [facility] Blood 06/17/2022 3:46 AM CDT 06/17/2022 3:52 AM CDT Marcelina Lo NP LAB BLOOD ORDERABLES Final Re sult Performing Organization Address [facility] de Phone Number [facility] [place] [address] * POCT glucose (06/17/2022 3:44 AM CDT) Glucose, POC 94 70 - 199 mg/dL [facility] Blood 06/17/2022 3:44 AM CDT 06/17/2022 3:44 AM CDT us Catherine Adams MD LAB POCT ORDERABLES - DEVIC E Final Result Performing Organization Address City/[facility] Co de Phone Number [facility] [place] [address] * POCT glucose (06/17/2022 2:52 AM CDT) Glucose, POC 119 70 - 199 mg/dL [facility] Blood 06/17/2022 2:52 AM CDT 06/17/2022 2:52 AM CDT Catherine Adams MD LAB POCT ORDERABLES - DEVIC E Final Result Performing Organization Address City/[facility] Co de Phone Number [facility] [place] [address] * POCT glucose (06/17/2022 1:52 AM CDT) Glucose, POC 127 70 - 199 mg/dL [facility] Blood 06/17/2022 1:52 AM CDT 06/17/2022 1:52 AM CDT Catherine Adams MD LAB POCT ORDERABLES - DEVIC E Final Result Performing Organization Address City/[facility] Co de Phone Number [facility] [place] [address] * POCT glucose (06/17/2022 12:36 AM CDT) Glucose, POC 165 70 - 199 mg/dL [facility] Blood 06/17/2022 12:3 6 AM CDT 06/17/2022 12:36 AM CDT Catherine Adams MD LAB POCT ORDERABLES - DEVIC E Final Result Performing Organization Address [facility] Co de Phone Number [facility] [place] [address] * (ABNORMAL) aPTT (06/17/2022 12:36 AM CDT) aPTT 67(H) 27 - 37 sec [facility] Comment: Interpretive Data Therapeutic heparin range: 60.0 - 94.0 seconds. Based on correlation with therapeutic heparin activity range of 0.3-0.7 Units/mL. Current interpretive data was last revised on 2020. Blood 06/17/2022 12:3 6 AM CDT 06/17/2022 1:04 AM CDT Narrative [facility] - 06/17/2022 1:09 AM CDT Draw STAT [...] BLOOD ORDERABLES Final Result Performing Organization Address [facility] de Phone Number [facility] [place] [address] * (ABNORMAL) Blood gas, arterial (06/16/2022 11:19 PM CDT) pH, Art 7.38 7.35 - 7.45 [facility] PCO2, Arterial 37 35 - 45 mmHg [facility] PO2, Arterial 99 83 - 108 mmHg [facility] HCO3 Art (Calculated) 22 20 - 30 mmol/L [facility] BE, art -3 mmol/L [facility] Comment: Interpretive Data No Reference Range Established Current Interpretive Data was last revised on 2017 O2 Sat Art (Measured) 97(H) 90 - 95 % [facility] Blood 06/16/2022 11:1 9 PM CDT 06/16/2022 11:24 PM CDT Marcelina Lo NP LAB BLOOD ORDERABLES Final Re sult Performing Organization Address [facility] Co de Phone Number [facility] [place] [place] [address] * POCT glucose (06/16/2022 11:11 PM CDT) Glucose, POC 172 70 - 199 mg/dL [facility] Blood 06/16/2022 11:1 1 PM CDT 06/16/2022 11:11 PM CDT Catherine Adams MD LAB POCT ORDERABLES - DEVIC E Final Result Performing Organization Address [facility] Co de Phone Number [facility] [place] [address] * POCT glucose (06/16/2022 10:07 PM CDT) Glucose, POC 166 70 - 199 mg/dL [facility] Blood 06/16/2022 10:0 7 PM CDT 06/16/2022 10:07 PM CDT Catherine Adams MD LAB POCT ORDERABLES - DEVIC E Final Result Performing Organization Address City/[facility] Co de Phone Number [facility] [place] [address] * XR Chest 1 View (06/16/2022 9:03 [...] change. Electronically signed by: Nida Sharpe M.D. Jeffrey Green MD IMG XR PROCEDURES Final Res ult * (ABNORMAL) eGFR (06/16/2022 8:52 PM CDT) [facility] eGFR 14(L) 90 - 130 mL/min/1. 73 m2 [facility] Comment: Interpretive Data Reference Interval Normal ?>/= [...] 06/16/2022 9:10 PM CDT us Marcelina Lo PRODUCT MANAGEMENT SPECIALIST LAB BLOOD ORDERABLES Final Re sult [facility] Department [place] [address] * (ABNORMAL) Differential, auto (06/16/2022 8:52 PM CDT) Neutrophil abs 5.4 1.7 - 6.5 K/cumm [facility] Imm gran abs 0.2(H) 0.0 - 0.1 K/cumm [facility] Lymphocyte abs 1.0 0.8 - 3.3 K/cumm [facility] Monocyte abs 1.1(H) 0.2 - 0.8 K/cumm [facility] Eosinophil abs 0.2 0.0 - 0.5 K/cumm [facility] Basophil abs 0.0 0.0 - 0.1 K/cumm [facility] Neutrophil pct 68.6 % [facility] Comment: Interpretive Data Percent cell count reference ranges are not reported, since discordance with absolute values may lead to misinterpretation of CBC data. Current Interpretive Data was last revised on 2017. Imm gran pct 2.0 % [facility] Comment: Interpretive Data Percent cell count reference ranges are not reported, since discordance with absolute values may lead to misinterpretation of CBC data. Current Interpretive Data was last revised on 2017. Lymphocyte pct 12.9 % [facility] Comment: Interpretive Data Percent cell count reference ranges are not reported, since discordance with absolute values may lead to misinterpretation of CBC data. Current Interpretive Data was last revised on 2017. Monocyte pct 14.3 % [facility] Comment: Interpretive Data Percent cell count reference ranges are not reported, since discordance with absolute values may lead to misinterpretation of CBC data. Current Interpretive Data was last revised on 2017. Eosinophil pct 1.9 % [facility] Comment: Interpretive Data Percent cell count reference ranges are not reported, since discordance with absolute values may lead to misinterpretation of CBC data. Current Interpretive Data was last revised on 2017. Basophil pct 0.3 % [facility] Comment: Interpretive Data Percent cell count reference ranges are not reported, since discordance with absolute values may lead to misinterpretation of CBC data. Current Interpretive Data was last revised on 2017. Blood 06/16/2022 8:52 PM CDT 06/16/2022 9:02 PM CDT us Marcelina Lo NP LAB BLOOD ORDERABLES Final Re sult [facility] Department [place] [address] * Lactate (06/16/2022 8:52 PM CDT) Lactate 1.1 0.7 - 2.0 mmol/L [facility] Blood 06/16/2022 8:52 PM CDT 06/16/2022 9:10 PM CDT us Catherine Adams MD LAB BLOOD ORDERABLES Final Result [facility] Department [place] [address] * (ABNORMAL) Triglycerides (06/16/2022 8:52 PM CDT) Triglycerides 253(H) <=149 mg/dL [facility] Comment: Interpretive Data Ages < [...] PM CDT 06/16/2022 9:10 PM CDT Narrative [facility] - 06/16/2022 9:44 PM CDT While on propofol infusion. us Catherine Adams MD LAB BLOOD ORDERABLES Final Result Performing Organization Address [facility] Co de Phone Number [facility] Department [place] [address] * (ABNORMAL) Phosphorus (06/16/2022 8:52 PM CDT) Phosphorus, pl 5.4(H) 2.3 - 4.5 mg/dL [facility] Blood 06/16/2022 8:52 PM CDT 06/16/2022 9:10 PM CDT Marcelina Lo PRODUCT MANAGEMENT SPECIALIST LAB BLOOD ORDERABLES Final Re sult Performing Organization Address [facility] de Phone Number [facility] [place] [address] * Beta-hydroxybutyrate (06/16/2022 8:52 PM CDT) Beta-Hydroxybut yrate 0.1 0.0 - 0.5 mmol/L [facility] Blood 06/16/2022 8:52 PM CDT 06/16/2022 9:02 PM CDT Marcelina Lo PRODUCT MANAGEMENT SPECIALIST LAB BLOOD ORDERABLES Edited R esult - Final Performing Organization Address [facility] Co de Phone Number [facility] [place] [place] [address] * Lipase (06/16/2022 8:52 PM CDT) Lipase 26 10 - 99 Units/L [facility] Blood 06/16/2022 8:52 PM CDT 06/16/2022 9:10 PM CDT us Marcelina Lo PRODUCT MANAGEMENT SPECIALIST LAB BLOOD ORDERABLES Final Re sult Performing Organization Address [facility] de Phone Number [facility] [place] [address] * (ABNORMAL) Magnesium (06/16/2022 8:52 PM CDT) Magnesium 3.0(H) 1.4 - 2.5 mg/dL [facility] Blood 06/16/2022 8:52 PM CDT 06/16/2022 9:10 PM CDT us Marcelina Lo PRODUCT MANAGEMENT SPECIALIST LAB BLOOD ORDERABLES Final Re sult [facility] Department [place] [address] * (ABNORMAL) Comprehensive metabolic panel (06/16/2022 8:52 PM CDT) Sodium 140 135 - 145 mmol/L [facility] Potassium, pl 4.0 3.3 - 4.9 mmol/L [facility] Chloride 104 97 - 110 mmol/L [facility] CO2 25 22 - 32 mmol/L [facility] Anion gap 11 2 - 15 mmol/L [facility] BUN 36(H) 8 - 25 mg/dL [facility] Creatinine 4.65(H) 0.80 - 1.30 mg/dL [facility] Glucose 197 70 - 199 mg/dL [facility] Comment: Interpretive Data Fasting glucose [...] 2017. Calcium 9.3 8.5 - 10.3 mg/dL [facility] Bilirubin, total 0.4 0.1 - 1.2 mg/dL [facility] Protein, pl 6.5 6.5 - 8.5 g/dL [facility] Albumin 2.7(L) 3.5 - 5.0 g/dL [facility] Alk phos 197(H) 40 - 130 Units/L [facility] ALT 35 7 - 55 Units/L [facility] AST 36 10 - 50 Units/L [facility] Blood 06/16/2022 8:52 PM CDT 06/16/2022 9:10 PM CDT Marcelina Lo PRODUCT MANAGEMENT SPECIALIST LAB BLOOD ORDERABLES Final Re sult Performing Organization Address City/[facility]/ZIP Co de Phone Number [facility] Department [place] [address] * (ABNORMAL) CBC with auto differential (06/16/2022 8:52 PM CDT) Pathologist [facility] WBC 7.9 3.8 - 9.9 K/cumm [facility] Hgb 7.4(L) 13.0 - 17.5 g/dL [facility] Hct 22.8(L) 38.9 - 50.3 % [facility] Plt 214 150 - 400 K/cumm [facility] MPV 10.1 9.1 - 12.3 fL [facility] RBC 2.41(L) 4.30 - 5.80 M/cumm [facility] MCV 94.6 81.3 - 96.4 fL [facility] MCH 30.7 27.1 - 33.3 pg [facility] MCHC 32.5 32.3 - 35.7 g/dL [facility] RDW CV 14.9 11.1 - 14.9 % [facility] RDW SD 47.8 35.7 - 48.1 fL [facility] NRBC abs 0.00 0.00 - 0.01 K/cumm [facility] Blood 06/16/2022 8:52 PM CDT 06/16/2022 9:02 PM CDT Marcelina oL PRODUCT MANAGEMENT SPECIALIST LAB BLOOD ORDERABLES Final Re sult [facility] [place] [place] [address] * (ABNORMAL) POCT glucose (06/16/2022 8:06 PM CDT) Glucose, POC 230(H) 70 - 199 mg/dL [facility] Blood 06/16/2022 8:06 PM CDT 06/16/2022 8:06 PM CDT Catherine Adams MD LAB POCT ORDERABLES - DEVIC E Final Result Performing Organization Address [facility] de Phone Number [facility] [place] [place] [address] * (ABNORMAL) POCT glucose (06/16/2022 7:16 PM CDT) Glucose, POC 250(H) 70 - 199 mg/dL [facility] Blood 06/16/2022 7:16 PM CDT 06/16/2022 7:16 PM CDT Catherine Adams MD LAB POCT ORDERABLES - DEVIC E Final Result Performing Organization Address [facility] de Phone Number [facility] [place] [address] * (ABNORMAL) POCT glucose (06/16/2022 5:52 PM CDT) Glucose, POC 328(H) 70 - 199 mg/dL [facility] Blood 06/16/2022 5:52 PM CDT 06/16/2022 5:52 PM CDT Catherine Adams MD LAB POCT ORDERABLES - DEVIC E Final Result Performing Organization Address [facility] [place] [address] * (ABNORMAL) aPTT (06/16/2022 4:49 PM CDT) aPTT 58(H) 27 - 37 sec [facility] Comment: Interpretive Data Therapeutic heparin range: 60.0 - 94.0 seconds. Based on correlation with therapeutic heparin activity range of 0.3-0.7 Units/mL. Current interpretive data was last revised on 2020. Blood 06/16/2022 4:49 PM CDT 06/16/2022 4:55 PM CDT Narrative [facility] - 06/16/2022 5:35 PM CDT Draw STAT [...] BLOOD ORDERABLES Final Result Performing Organization Address City/[facility]/ZIP Co de Phone Number [facility] [place] [address] * (ABNORMAL) POCT glucose (06/16/2022 4:41 PM CDT) Glucose, POC 305(H) 70 - 199 mg/dL [facility] Blood 06/16/2022 4:41 PM CDT 06/16/2022 4:41 PM CDT Catherine Adams MD LAB POCT ORDERABLES - DEVIC E Final Result Performing Organization Address [facility] Co de Phone Number [facility] [place] [place] [address] * (ABNORMAL) Blood gas, arterial (06/16/2022 3:31 PM CDT) pH, Art 7.41 7.35 - 7.45 [facility] PCO2, Arterial 36 35 - 45 mmHg [facility] PO2, Arterial 82(L) 83 - 108 mmHg [facility] HCO3 Art (Calculated) 23 20 - 30 mmol/L [facility] BE, art -1 mmol/L [facility] Comment: Interpretive Data No Reference Range Established Current Interpretive Data was last revised on 2017 O2 Sat Art (Measured) 96(H) 90 - 95 % [facility] Blood 06/16/2022 3:31 PM CDT 06/16/2022 3:38 PM CDT Marcelina Lo PRODUCT MANAGEMENT SPECIALIST LAB BLOOD ORDERABLES Final Re sult Performing Organization Address [facility] de Phone Number [facility] [place] [place] [address] * (ABNORMAL) POCT glucose (06/16/2022 3:27 PM CDT) Glucose, POC 316(H) 70 - 199 mg/dL [facility] Blood 06/16/2022 3:27 PM CDT 06/16/2022 3:27 PM CDT Catherine Adams MD LAB POCT ORDERABLES - DEVIC E Final Result Performing Organization Address [facility] de Phone Number [facility] Department [place] [address] * (ABNORMAL) POCT glucose (06/16/2022 1:00 PM CDT) Glucose, POC 327(H) 70 - 199 mg/dL [facility] Blood 06/16/2022 1:00 PM CDT 06/16/2022 1:00 PM CDT Catherine Adams MD LAB POCT ORDERABLES - DEVIC E Final Result Performing Organization Address [facility] de Phone Number [facility] [place] [address] * (ABNORMAL) eGFR (06/16/2022 12:57 PM CDT) eGFR 15(L) 90 - 130 mL/min/1. 73 m2 [facility] Comment: Interpretive Data Reference Interval [...] 7 PM CDT 06/16/2022 2:29 PM CDT us Catherine Adams MD LAB BLOOD ORDERABLES Final Result [facility] Department [place] [address] * (ABNORMAL) Basic metabolic panel (06/16/2022 12:57 PM CDT) Sodium 137 135 - 145 mmol/L [facility] Potassium, pl 3.9 3.3 - 4.9 mmol/L [facility] Chloride 101 97 - 110 mmol/L [facility] CO2 26 22 - 32 mmol/L [facility] Anion gap 10 2 - 15 mmol/L [facility] BUN 33(H) 8 - 25 mg/dL [facility] Creatinine 4.34(H) 0.80 - 1.30 mg/dL [facility] Glucose 340(H) 70 - 199 mg/dL [facility] Comment: Interpretive Data Fasting glucose [...] 2017. Calcium 9.0 8.5 - 10.3 mg/dL [facility] Blood 06/16/2022 12:5 7 PM CDT 06/16/2022 2:29 PM CDT us Catherine Adams MD LAB BLOOD ORDERABLES Final Result Performing Organization Address [facility] de Phone Number [facility] Department [place] [address] * (ABNORMAL) Blood gas, arterial (06/16/2022 10:54 AM CDT) pH, Art 7.40 7.35 - 7.45 [facility] PCO2, Arterial 38 35 - 45 mmHg [facility] PO2, Arterial 66(L) 83 - 108 mmHg [facility] HCO3 Art (Calculated) 24 20 - 30 mmol/L [facility] BE, art -1 mmol/L [facility] Comment: Interpretive Data No Reference Range Established Current Interpretive Data was last revised on 2017 O2 Sat Art (Measured) 92 90 - 95 % [facility] Blood 06/16/2022 10:5 4 AM CDT 06/16/2022 11:01 AM CDT us Marcelina Lo NP LAB BLOOD ORDERABLES Final Re sult Performing Organization Address [facility] Co de Phone Number [facility] Department [place] [address] * (ABNORMAL) POCT glucose (06/16/2022 10:50 AM CDT) [facility] Glucose, POC 393(H) 70 - 199 mg/dL [facility] Blood 06/16/2022 10:5 0 AM CDT 06/16/2022 10:50 AM CDT Catherine Adams MD LAB POCT ORDERABLES - DEVIC E Final Result Performing Organization Address [facility]/ZIP [place] [address] * (ABNORMAL) aPTT (06/16/2022 9:14 AM CDT) [facility] aPTT 54(H) 27 - 37 sec [facility] Comment: Interpretive Data Therapeutic heparin range: 60.0 - 94.0 seconds. Based on correlation with therapeutic heparin activity range of 0.3-0.7 Units/mL. Current interpretive data was last revised on 2020. Blood 06/16/2022 9:14 AM CDT 06/16/2022 9:33 AM CDT Narrative [facility] - 06/16/2022 9:58 AM CDT Draw STAT [...] BLOOD ORDERABLES Final Result Performing Organization Address City/[facility]/ZIP Co de Phone Number [facility] [place] [address] * Beta-hydroxybutyrate (06/16/2022 7:54 AM CDT) Beta-Hydroxybut yrate 0.1 0.0 - 0.5 mmol/L [facility] Blood 06/16/2022 7:54 AM CDT 06/16/2022 8:10 AM CDT Catherine Adams MD LAB BLOOD ORDERABLES Final Result [facility] Department [place] [address] * (ABNORMAL) eGFR (06/16/2022 7:54 AM CDT) Pathologist [facility] eGFR 16(L) 90 - 130 mL/min/1. 73 m2 [facility] Comment: Interpretive Data Reference Interval [...] 06/16/2022 8:06 AM CDT us Marcelina Lo PRODUCT MANAGEMENT SPECIALIST LAB BLOOD ORDERABLES Final Re sult [facility] Department [place] [address] * (ABNORMAL) Differential, auto (06/16/2022 7:54 AM CDT) Neutrophil abs 6.3 1.7 - 6.5 K/cumm [facility] Imm gran abs 0.4(H) 0.0 - 0.1 K/cumm [facility] Lymphocyte abs 1.0 0.8 - 3.3 K/cumm [facility] Monocyte abs 1.2(H) 0.2 - 0.8 K/cumm [facility] Eosinophil abs 0.2 0.0 - 0.5 K/cumm [facility] Basophil abs 0.0 0.0 - 0.1 K/cumm [facility] Neutrophil pct 69.4 % [facility] Comment: Interpretive Data Percent cell count reference ranges are not reported, since discordance with absolute values may lead to misinterpretation of CBC data. Current Interpretive Data was last revised on 2017. Imm gran pct 4.3 % [facility] Comment: Interpretive Data Percent cell count reference ranges are not reported, since discordance with absolute values may lead to misinterpretation of CBC data. Current Interpretive Data was last revised on 2017. Lymphocyte pct 11.0 % [facility] Comment: Interpretive Data Percent cell count reference ranges are not reported, since discordance with absolute values may lead to misinterpretation of CBC data. Current Interpretive Data was last revised on 2017. Monocyte pct 13.3 % [facility] Comment: Interpretive Data Percent cell count reference ranges are not reported, since discordance with absolute values may lead to misinterpretation of CBC data. Current Interpretive Data was last revised on 2017. Eosinophil pct 1.7 % [facility] Comment: Interpretive Data Percent cell count reference ranges are not reported, since discordance with absolute values may lead to misinterpretation of CBC data. Current Interpretive Data was last revised on 2017. Basophil pct 0.3 % [facility] Comment: Interpretive Data Percent cell count reference ranges are not reported, since discordance with absolute values may lead to misinterpretation of CBC data. Current Interpretive Data was last revised on 2017. Blood 06/16/2022 7:54 AM CDT 06/16/2022 8:06 AM CDT Marcelina Lo PRODUCT MANAGEMENT SPECIALIST LAB BLOOD ORDERABLES Final Re sult Performing Organization Address [facility] Co de Phone Number [facility] Department [place] [address] * (ABNORMAL) Blood gas, arterial (06/16/2022 7:54 AM CDT) pH, Art 7.44 7.35 - 7.45 [facility] PCO2, Arterial 35 35 - 45 mmHg [facility] PO2, Arterial 58(L) 83 - 108 mmHg [facility] HCO3 Art (Calculated) 25 20 - 30 mmol/L [facility] BE, art 0 mmol/L [facility] Comment: Interpretive Data No Reference Range Established Current Interpretive Data was last revised on 2017 O2 Sat Art (Measured) 90 90 - 95 % [facility] Blood 06/16/2022 7:54 AM CDT 06/16/2022 8:01 AM CDT Catherine Adams MD LAB BLOOD ORDERABLES Final Result Performing Organization Address [facility] Co de Phone Number [facility] Department [place] [address] * (ABNORMAL) Magnesium (06/16/2022 7:54 AM CDT) Magnesium 2.9(H) 1.4 - 2.5 mg/dL [facility] Blood 06/16/2022 7:54 AM CDT 06/16/2022 8:06 AM CDT Marcelina Lo PRODUCT MANAGEMENT SPECIALIST LAB BLOOD ORDERABLES Final Re sult [facility] Department [place] [address] * (ABNORMAL) Comprehensive metabolic panel (06/16/2022 7:54 AM CDT) Sodium 136 135 - 145 mmol/L [facility] Potassium, pl 4.2 3.3 - 4.9 mmol/L [facility] Chloride 100 97 - 110 mmol/L [facility] CO2 26 22 - 32 mmol/L [facility] Anion gap 10 2 - 15 mmol/L [facility] BUN 33(H) 8 - 25 mg/dL [facility] Creatinine 4.13(H) 0.80 - 1.30 mg/dL [facility] Glucose 434(H) 70 - 199 mg/dL [facility] Comment: Interpretive Data Fasting glucose [...] 2017. Calcium 8.9 8.5 - 10.3 mg/dL [facility] Bilirubin, total 0.4 0.1 - 1.2 mg/dL [facility] Protein, pl 6.2(L) 6.5 - 8.5 g/dL [facility] Albumin 3.1(L) 3.5 - 5.0 g/dL [facility] Alk phos 218(H) 40 - 130 Units/L [facility] ALT 36 7 - 55 Units/L [facility] AST 42 10 - 50 Units/L [facility] Blood 06/16/2022 7:54 AM CDT 06/16/2022 8:06 AM CDT Marcelina Lo PRODUCT MANAGEMENT SPECIALIST LAB BLOOD ORDERABLES Final Re sult Performing Organization Address [facility] Co de Phone Number [facility] [place] [address] * (ABNORMAL) CBC with auto differential (06/16/2022 7:54 AM CDT) WBC 9.1 3.8 - 9.9 K/cumm [facility] Hgb 7.5(L) 13.0 - 17.5 g/dL [facility] Hct 22.8(L) 38.9 - 50.3 % [facility] Plt 214 150 - 400 K/cumm [facility] MPV 10.1 9.1 - 12.3 fL [facility] RBC 2.42(L) 4.30 - 5.80 M/cumm [facility] MCV 94.2 81.3 - 96.4 fL [facility] MCH 31.0 27.1 - 33.3 pg [facility] MCHC 32.9 32.3 - 35.7 g/dL [facility] RDW CV 14.6 11.1 - 14.9 % [facility] RDW SD 46.9 35.7 - 48.1 fL [facility] NRBC abs 0.02(H) 0.00 - 0.01 K/cumm [facility] Blood 06/16/2022 7:54 AM CDT 06/16/2022 8:06 AM CDT Marcelina Lo PRODUCT MANAGEMENT SPECIALIST LAB BLOOD ORDERABLES Final Re sult [facility] [place], [place] [id number] * (ABNORMAL) POCT glucose (06/16/2022 7:52 AM CDT) Glucose, POC 408(H) 70 - 199 mg/dL [facility] Blood 06/16/2022 7:52 AM CDT 06/16/2022 7:52 AM CDT Catherine Adams MD LAB POCT ORDERABLES - DEVIC E Final Result Performing Organization Address City/[facility] Co de Phone Number [facility] [place] [address] * (ABNORMAL) POCT glucose (06/16/2022 4:52 AM CDT) Glucose, POC 425(H) 70 - 199 mg/dL [facility] Blood 06/16/2022 4:52 AM CDT 06/16/2022 4:52 AM CDT Catherine Adams MD LAB POCT ORDERABLES - DEVIC E Final Result Performing Organization Address [facility] de Phone Number [facility] [place] [address] * XR Chest 1 View (06/16/2022 4:43 AM CDT) Anatomical Region Laterality Modality Body, Chest N/A Computed Radiogr aphy 06/16/2022 9:29 AM CDT Impressions 06/16/2022 11:17 AM CDT Comparison is made to 06/15/2022. Endotracheal tube tip is difficult to see but likely terminates approximately 6.4 cm above the boni. Gastric tube terminates below left diaphragm and out of the [id number]. There are small lung volumes. Airspace opacity [...] below left diaphragm and out of the [id number]. There are small lung volumes. Airspace opacity [...] Glucose, POC 239(H) 70 - 199 mg/dL [facility] Blood 06/16/2022 12:0 1 AM CDT 06/16/2022 12:01 AM CDT Catherine Adams MD LAB POCT ORDERABLES - DEVIC E Final Result [facility] Department [place] [address] * (ABNORMAL) aPTT (06/16/2022 12:01 AM CDT) aPTT 53(H) 27 - 37 sec [facility] Comment: Interpretive Data Therapeutic heparin range: 60.0 - 94.0 seconds. Based on correlation with therapeutic heparin activity range of 0.3-0.7 Units/mL. Current interpretive data was last revised on 2020. Blood 06/16/2022 12:0 1 AM CDT 06/16/2022 12:14 AM CDT Narrative [facility] - 06/16/2022 12:36 AM CDT Draw STAT PTT 6 hrs after initiation of heparin infusion, draw STAT PTT 6 hours after each dose/rate change, and every 6 hours until 2 consecutive PTTs are within therapeutic range. Once two consecutive PTT's are therapeutic (60-94.9 seconds), then draw PTT every AM until heparin is discontinued. Catherine Adams MD LAB BLOOD ORDERABLES Final Result [facility] Department [place] [address] * (ABNORMAL) CBC without differential (06/16/2022 12:01 AM CDT) WBC 11.1(H) 3.8 - 9.9 K/cumm [facility] Hgb 7.4(L) 13.0 - 17.5 g/dL [facility] Hct 22.6(L) 38.9 - 50.3 % [facility] Plt 215 150 - 400 K/cumm [facility] MPV 10.3 9.1 - 12.3 fL [facility] RBC 2.38(L) 4.30 - 5.80 M/cumm [facility] MCV 95.0 81.3 - 96.4 fL [facility] MCH 31.1 27.1 - 33.3 pg [facility] MCHC 32.7 32.3 - 35.7 g/dL [facility] RDW CV 14.4 11.1 - 14.9 % [facility] RDW SD 46.4 35.7 - 48.1 fL [facility] NRBC abs 0.05(H) 0.00 - 0.01 K/cumm [facility] Blood 06/16/2022 12:0 1 AM CDT 06/16/2022 12:22 AM CDT Narrative [facility] - 06/16/2022 12:29 AM CDT While on heparin infusion Catherine Adams MD LAB BLOOD ORDERABLES Final Result [facility] Department [place] [address] * (ABNORMAL) eGFR (06/15/2022 8:51 PM CDT) [facility] eGFR 17(L) 90 - 130 mL/min/1. 73 m2 ALESSANDRA [...] 06/15/2022 9:34 PM CDT us Marcelina Lo PRODUCT MANAGEMENT SPECIALIST LAB BLOOD ORDERABLES Final Re sult [facility] Department [place] [address] * (ABNORMAL) Differential, auto (06/15/2022 8:51 PM CDT) [facility] Neutrophil abs 8.6(H) 1.7 - 6.5 K/cumm [facility] Imm gran abs 0.8(H) 0.0 - 0.1 K/cumm [facility] Lymphocyte abs 1.4 0.8 - 3.3 K/cumm [facility] Monocyte abs 1.7(H) 0.2 - 0.8 K/cumm [facility] Eosinophil abs 0.2 0.0 - 0.5 K/cumm [facility] Basophil abs 0.0 0.0 - 0.1 K/cumm [facility] Neutrophil pct 67.7 % [facility] Comment: Interpretive Data Percent cell count reference ranges are not reported, since discordance with absolute values may lead to misinterpretation of CBC data. Current Interpretive Data was last revised on 2017. Imm gran pct 6.1 % [facility] Comment: Interpretive Data Percent cell count reference ranges are not reported, since discordance with absolute values may lead to misinterpretation of CBC data. Current Interpretive Data was last revised on 2017. Lymphocyte pct 11.2 % [facility] Comment: Interpretive Data Percent cell count reference ranges are not reported, since discordance with absolute values may lead to misinterpretation of CBC data. Current Interpretive Data was last revised on 2017. Monocyte pct 13.3 % [facility] Comment: Interpretive Data Percent cell count reference ranges are not reported, since discordance with absolute values may lead to misinterpretation of CBC data. Current Interpretive Data was last revised on 2017. Eosinophil pct 1.5 % [facility] Comment: Interpretive Data Percent cell count reference ranges are not reported, since discordance with absolute values may lead to misinterpretation of CBC data. Current Interpretive Data was last revised on 2017. Basophil pct 0.2 % [facility] Comment: Interpretive Data Percent cell count reference ranges are not reported, since discordance with absolute values may lead to misinterpretation of CBC data. Current Interpretive Data was last revised on 2017. Blood 06/15/2022 8:51 PM CDT 06/15/2022 9:34 PM CDT us Marcelina Lo PRODUCT MANAGEMENT SPECIALIST LAB BLOOD ORDERABLES Final Re sult Performing Organization Address [facility] Co de Phone Number [facility] Department [place] [address] * (ABNORMAL) Triglycerides (06/15/2022 8:51 PM CDT) Pathologist [facility] Triglycerides 227(H) <=149 mg/dL [facility] Comment: Interpretive Data Ages < [...] PM CDT 06/15/2022 9:33 PM CDT Narrative [facility] - 06/15/2022 10:00 PM CDT While on propofol infusion. Catherine Adams MD LAB BLOOD ORDERABLES Final Result Performing Organization Address [facility] Co de Phone Number [facility] Department [place] [address] * (ABNORMAL) Phosphorus (06/15/2022 8:51 PM CDT) Pathologist [facility] Phosphorus, pl 5.0(H) 2.3 - 4.5 mg/dL [facility] Blood 06/15/2022 8:51 PM CDT 06/15/2022 9:33 PM CDT Marcelina Lo PRODUCT MANAGEMENT SPECIALIST LAB BLOOD ORDERABLES Final Re sult Performing Organization Address City/[facility]/ZIP Co de Phone Number [facility] [place] [address] * Beta-hydroxybutyrate (06/15/2022 8:51 PM CDT) Pathologist [facility] Beta-Hydroxybut yrate 0.2 0.0 - 0.5 mmol/L [facility] Blood 06/15/2022 8:51 PM CDT 06/15/2022 9:26 PM CDT Marcelina Lo PRODUCT MANAGEMENT SPECIALIST LAB BLOOD ORDERABLES Edited R esult - Final Performing Organization Address [facility]/ZIP Co de Phone Number [facility] [place] [address] * Lipase (06/15/2022 8:51 PM CDT) Pathologist [facility] Lipase 27 10 - 99 Units/L [facility] Blood 06/15/2022 8:51 PM CDT 06/15/2022 9:33 PM CDT Marcelina Lo PRODUCT MANAGEMENT SPECIALIST LAB BLOOD ORDERABLES Final Re sult [facility] [place] [address] * (ABNORMAL) Magnesium (06/15/2022 8:51 PM CDT) Magnesium 3.2(H) 1.4 - 2.5 mg/dL [facility] Blood 06/15/2022 8:51 PM CDT 06/15/2022 9:34 PM CDT us Marcelina Lo PRODUCT MANAGEMENT SPECIALIST LAB BLOOD ORDERABLES Final Re sult [facility] Department [place] [address] * (ABNORMAL) Comprehensive metabolic panel (06/15/2022 8:51 PM CDT) Sodium 137 135 - 145 mmol/L [facility] Potassium, pl 4.6 3.3 - 4.9 mmol/L [facility] Chloride 101 97 - 110 mmol/L [facility] CO2 26 22 - 32 mmol/L [facility] Anion gap 10 2 - 15 mmol/L [facility] BUN 29(H) 8 - 25 mg/dL [facility] Creatinine 3.93(H) 0.80 - 1.30 mg/dL [facility] Glucose 179 70 - 199 mg/dL [facility] Comment: Interpretive Data Fasting glucose [...] Calcium 9.5 8.5 - 10.3 mg/dL [facility] Bilirubin, total 0.5 0.1 - 1.2 mg/dL [facility] Protein, pl 6.5 6.5 - 8.5 g/dL [facility] Albumin 3.0(L) 3.5 - 5.0 g/dL [facility] Alk phos 235(H) 40 - 130 Units/L [facility] ALT 36 7 - 55 Units/L [facility] AST 50 10 - 50 Units/L [facility] Blood 06/15/2022 8:51 PM CDT 06/15/2022 9:34 PM CDT us Marcelina Lo PRODUCT MANAGEMENT SPECIALIST LAB BLOOD ORDERABLES Final Re sult Performing Organization Address [facility] Co de Phone Number [facility] Department [place] [address] * (ABNORMAL) CBC with auto differential (06/15/2022 8:51 PM CDT) [facility] WBC 12.7(H) 3.8 - 9.9 K/cumm [facility] Hgb 7.2(L) 13.0 - 17.5 g/dL [facility] Hct 21.9(L) 38.9 - 50.3 % [facility] Plt 204 150 - 400 K/cumm [facility] MPV 10.4 9.1 - 12.3 fL [facility] RBC 2.30(L) 4.30 - 5.80 M/cumm [facility] MCV 95.2 81.3 - 96.4 fL [facility] MCH 31.3 27.1 - 33.3 pg [facility] MCHC 32.9 32.3 - 35.7 g/dL [facility] RDW CV 14.6 11.1 - 14.9 % [facility] RDW SD 47.4 35.7 - 48.1 fL [facility] NRBC abs 0.05(H) 0.00 - 0.01 K/cumm [facility] Blood 06/15/2022 8:51 PM CDT 06/15/2022 9:34 PM CDT us Marcelina Lo PRODUCT MANAGEMENT SPECIALIST LAB BLOOD ORDERABLES Final Re sult Performing Organization Address [facility]/ZIP Co de Phone Number [facility] [place] [place] [address] * POCT glucose (06/15/2022 8:49 PM CDT) Glucose, POC 183 70 - 199 mg/dL [facility] Blood 06/15/2022 8:49 PM CDT 06/15/2022 8:49 PM CDT Catherine Adams MD LAB POCT ORDERABLES - DEVIC E Final Result Performing Organization Address [facility] Co de Phone Number [facility] [place] [address] * C. difficile testing Stool (06/15/2022 6:15 PM CDT) C. diff result Negative, free toxin Negative , free toxin [facility] C. diff interp Negative for toxigenic Clostridioides (Clostridium) difficile. Analysis was performed using a glutatmate dehydrogenase antigen detection assay combined with a C. difficile toxin detection assay. [facility] Stool 06/15/2022 6:15 PM CDT 06/15/2022 8:14 PM CDT Narrative [facility] - 06/15/2022 11:02 PM CDT Testing for C. difficile is not recommended within 4 days of a negative result, 10 days of a positive, or 24 hours after laxative administration. If this order is clinically indicated, contact the lab and enter the passcode to complete this order.->[id number] Catherine Adams MD LAB MICROBIOLOGY - GENERAL ORDERABLES Final Result Performing Organization Address [facility] de Phone Number [facility] Department [place] [address] * VRE culture, surveillance Stool (06/15/2022 6:14 PM CDT) Report Final Report: Negative [facility] Stool 06/15/2022 6:14 PM CDT 06/15/2022 11:04 PM CDT Narrative [facility] - 06/18/2022 1:29 PM CDT Testing performed by [facility] Microbiology [facility] ([phone]). us Catherine Adams MD LAB MICROBIOLOGY - GENERAL ORDERABLES Final Result Performing Organization Address City/[facility]/ZIP Co de Phone Number [facility] Department [place] [address] * (ABNORMAL) POCT glucose (06/15/2022 3:21 PM CDT) Glucose, POC 260(H) 70 - 199 mg/dL [facility] Blood 06/15/2022 3:21 PM CDT 06/15/2022 3:21 PM CDT Catherine Adams MD LAB POCT ORDERABLES - DEVIC E Final Result Performing Organization Address [facility] Co de Phone Number [facility] [place] [place] [address] * (ABNORMAL) Blood gas, arterial (06/15/2022 11:21 AM CDT) Pathologist [facility] pH, Art 7.38 7.35 - 7.45 [facility] PCO2, Arterial 39 35 - 45 mmHg [facility] PO2, Arterial 100 83 - 108 mmHg [facility] HCO3 Art (Calculated) 23 20 - 30 mmol/L [facility] BE, art -2 mmol/L [facility] Comment: Interpretive Data No Reference Range Established Current Interpretive Data was last revised on 2017 O2 Sat Art (Measured) 98(H) 90 - 95 % [facility] Blood 06/15/2022 11:2 1 AM CDT 06/15/2022 11:32 AM CDT us Marcelina Lo NP LAB BLOOD ORDERABLES Final Re sult Performing Organization Address [facility]/ZIP Co de Phone Number [facility] [place] [address] * (ABNORMAL) POCT glucose (06/15/2022 11:20 AM CDT) Glucose, POC 332(H) 70 - 199 mg/dL [facility] Glucose comment 1 Glu2: RN/MD Notified [facility] Blood 06/15/2022 11:2 0 AM CDT 06/15/2022 11:20 AM CDT Catherine Adams MD LAB POCT ORDERABLES - DEVIC E Final Result [facility] Department [place] [address] * Respiratory pathogen panel Nasopharyngeal (06/15/2022 11:05 AM CDT) [facility] Influenza A RNA Not Detected Not Detected [facility] Influenza B RNA Not Detected Not Detected [facility] RSV RNA Not Detected Not Detected [facility] COVID-19 RNA Not Detected Not Detected [facility] Coronavirus 229E RNA Not Detected Not Detected [facility] Coronavirus HKU1 RNA Not Detected Not Detected [facility] Coronavirus NL63 RNA Not Detected Not Detected [facility] Coronavirus OC43 RNA Not Detected Not Detected [facility] Adenovirus DNA Not Detected Not Detected [facility] Metapneumovirus RNA Not Detected Not Detected [facility] Rhinovirus/Enterov irus RNA Not Detected Not Detected [facility] Parainfluenza 1 RNA Not Detected Not Detected [facility] Parainfluenza 2 RNA Not Detected Not Detected [facility] Parainfluenza 3 RNA Not Detected Not Detected [facility] Parainfluenza 4 RNA Not Detected Not Detected [facility] B. pertussis DNA Not Detected Not Detected [facility] B. parapertussis DNA Not Detected Not Detected [facility] C. pneumoniae DNA Not Detected Not Detected [facility] M. pneumoniae DNA Not Detected Not Detected [facility] Nasopharyngeal 06/15/2022 11 :05 AM CDT 06/15/2022 11:19 AM CDT Narrative [facility] - 06/15/2022 1:02 PM CDT Is the Patient experiencing symptoms consistent with COVID?->Unknown Reason for testing?->Symptomatic Surveillance testing for transplant patient?->No ??Interpretive Data [employer] Respiratory Panel (RP2.1) assay is a [...] assay has FDA clearance for testing of PRODUCT MANAGEMENT SPECIALIST swabs. ??The performance of additional specimen types has been assessed by the performing laboratory. ??The performance characteristics of this assay have been determined by [facility] Molecular Infectious Disease Laboratory. Current interpretive data was last revised on 22. Catherine Adams MD LAB MICROBIOLOGY - GENERAL ORDERABLES Final Result [facility] Department [place] [address] * US Vein Duplex Lower Extremity Bilateral Complete (06/15/2022 11:00 AM CDT) Anatomical Region Laterality Modality Vascular Bilateral Ultrasound 06/15/2022 10:2 9 AM CDT Narrative 06/15/2022 12:34 PM CDT [facility] - Department of Vascular Surgery, Vascular Laboratory [address] [place] [id number] Lower Extremity Venous Ultrasound Report Patient Name: ADELIA GARVIN C : 1970 (51y 9m) Study Date: 06/15/2022 10:29:44 AM Gender: M Tech: Location: [id number] Ref.Provider: CATHERINE ADAMS Quality: Adequate Order Provider: CATHERINE ADAMS Procedures: Vascular Report: Venous Duplex imaging was performed bilaterally in the lower extremities. The common femoral, femoral, popliteal, posterior tibial, peroneal veins were evaluated for patency, spontaneity and phasicity with Doppler, compression and augmentation maneuvers. Great saphenous vein proximal at the junction was evaluated with compression maneuvers. Indications: Localized edema. Findings: Performing Weight Loss Centre Manager: Faye Zheng RVT, NAN. Bilateral: Venous Doppler signals in the [...] Electronically Signed By: Jase Mendez MD [facility] 2022-06-15 12:34:44 CDT CC: CC: Procedure Note Jase Mendez MD - 06/15/2022 [facility] of Medicine - Department of Vascular Surgery,Vascular Laboratory [address] [place] [address] Lower Extremity Venous Ultrasound Report Patient Name: ADELIA GARVIN CPatient ID: [id number] : 1970 (51y 9m)Study Date: 06/15/2022 10:29:44 AM Gender: MAccession #: [id number] Tech: CDLocation: [id number] Ref.Provider: Leandro ADAMSality: Adequate Order Provider: Ramez ADAMS #: [id number] Procedures: Vascular Report: Venous Duplex imaging was performed bilaterally in the lower extremities.The common femoral, femoral, popliteal, posterior tibial, peroneal veins wereevaluated for patency, spontaneity and phasicity with Doppler, compression and augmentationmaneuvers. Great saphenous vein proximal at the junction was evaluated with compressionmaneuvers. Indications: Localized edema. Findings: Performing Weight Loss Centre Manager: Faye Zheng RVT, RDMS. Bilateral: Venous Doppler [...] Electronically Signed By: Jase Mendez MD [facility] 2022-06-15 12:34:44 CDT CC: CC: Result [facility] Catherine Adams MD IMG US PROCEDURES Final Res ult * (ABNORMAL) POCT glucose (06/15/2022 8:21 AM CDT) Glucose, POC 260(H) 70 - 199 mg/dL [facility] Blood 06/15/2022 8:21 AM CDT 06/15/2022 8:[address] [facility] Catherine Adams MD LAB POCT ORDERABLES - DEVIC E Final Result Performing Organization Address [facility] Co de Phone Number [facility] Department [place] [address] * Oxyhemoglobin, central venous (06/15/2022 8:11 AM CDT) Oxyhemoglobin, CV 66.6 % [facility] Comment: Interpretive Data No reference range established. Current interpretive data was last revised 2019. Blood 06/15/2022 8:11 AM CDT 06/15/2022 8:[address] [facility] Catherine Adams MD LAB BLOOD ORDERABLES Final Result Performing Organization Address [facility] Co de Phone Number [facility] [place] [address] * (ABNORMAL) aPTT (06/15/2022 8:11 AM CDT) aPTT 60(H) 27 - 37 sec [facility] Comment: Interpretive Data Therapeutic heparin range: 60.0 - 94.0 seconds. Based on correlation with therapeutic heparin activity range of 0.3-0.7 Units/mL. Current interpretive data was last revised on 2020. Blood 06/15/2022 8:11 AM CDT 06/15/2022 8:50 AM CDT Luis CARRION - 06/15/2022 9:28 AM CDT Draw STAT PTT 6 hrs after initiation of heparin infusion, draw STAT PTT 6 hours after each dose/rate change, and every 6 hours until 2 consecutive PTTs are within therapeutic range. Once two consecutive PTT's are therapeutic (60-94.9 seconds), then draw PTT every AM until heparin is discontinued. us Catherine Adams MD LAB BLOOD ORDERABLES Final Result [facility] Department [place] [address] * (ABNORMAL) eGFR (06/15/2022 8:06 AM CDT) eGFR 27(L) 90 - 130 mL/min/1. 73 m2 [facility] Comment: Interpretive Data Reference Interval [...] 06/15/2022 8:50 AM CDT us Marcelina Lo PRODUCT MANAGEMENT SPECIALIST LAB BLOOD ORDERABLES Final Re sult [facility] Department [place] [address] * (ABNORMAL) Differential, auto (06/15/2022 8:06 AM CDT) Neutrophil abs 9.0(H) 1.7 - 6.5 K/cumm [facility] Imm gran abs 1.0(H) 0.0 - 0.1 K/cumm [facility] Lymphocyte abs 1.6 0.8 - 3.3 K/cumm [facility] Monocyte abs 1.5(H) 0.2 - 0.8 K/cumm [facility] Eosinophil abs 0.2 0.0 - 0.5 K/cumm [facility] Basophil abs 0.1 0.0 - 0.1 K/cumm [facility] Neutrophil pct 67.6 % [facility] Comment: Interpretive Data Percent cell count reference ranges are not reported, since discordance with absolute values may lead to misinterpretation of CBC data. Current Interpretive Data was last revised on 2017. Imm gran pct 7.4 % [facility] Comment: Interpretive Data Percent cell count reference ranges are not reported, since discordance with absolute values may lead to misinterpretation of CBC data. Current Interpretive Data was last revised on 2017. Lymphocyte pct 11.8 % [facility] Comment: Interpretive Data Percent cell count reference ranges are not reported, since discordance with absolute values may lead to misinterpretation of CBC data. Current Interpretive Data was last revised on 2017. Monocyte pct 11.2 % [facility] Comment: Interpretive Data Percent cell count reference ranges are not reported, since discordance with absolute values may lead to misinterpretation of CBC data. Current Interpretive Data was last revised on 2017. Eosinophil pct 1.5 % [facility] Comment: Interpretive Data Percent cell count reference ranges are not reported, since discordance with absolute values may lead to misinterpretation of CBC data. Current Interpretive Data was last revised on 2017. Basophil pct 0.5 % [facility] Comment: Interpretive Data Percent cell count reference ranges are not reported, since discordance with absolute values may lead to misinterpretation of CBC data. Current Interpretive Data was last revised on 2017. Blood 06/15/2022 8:06 AM CDT 06/15/2022 8:50 AM CDT us Marcelina Lo PRODUCT MANAGEMENT SPECIALIST LAB BLOOD ORDERABLES Final Re sult [facility] Department [place] [address] * Blood culture Blood Arm, right (06/15/2022 8:06 AM CDT) Report Final Report: No growth [facility] Blood (Arm, right) 06/15/2022 8:06 AM CDT 06/15/2022 9:38 AM CDT Narrative ALESS[facility]DRA CARRION - 06/19/2022 12:00 PM CDT From a [...] organism identification may be performed using the TVPageigene Gram-Positive Blood Culture Assay. This assay detects microbial DNA in positive blood culture broth via hybridization of target DNA to capture oligonucleotides on a microarray. This assay has been cleared by the [place] Food and Drug Administration and its performance characteristics have been verified by the [facility] Microbiology [facility]. 5. ?For questions about this culture, contact the Microbiology Laboratory at [phone]. Interpretive data was last revised on 2020. Catherine Adams MD LAB MICROBIOLOGY - GENERAL ORDERABLES Final Result [facility] Department [place] [address] * Blood culture Blood Antecubital, right (06/15/2022 8:06 AM CDT) Report Final Report: No growth [facility] Blood (Antecubital, right) 06/15/2022 8:06 AM CDT 06/15/2022 9:37 AM CDT Narrative ALESS[facility]A CARRION - 06/19/2022 12:00 PM CDT 1. ?Blood [...] organism identification may be performed using the TVPageigene Gram-Positive Blood Culture Assay. This assay detects microbial DNA in positive blood culture broth via hybridization of target DNA to capture oligonucleotides on a microarray. This assay has been cleared by the [place] Food and Drug Administration and its performance characteristics have been verified by the [facility]biology [facility]. 5. ?For questions about this culture, contact the Microbiology Laboratory at [phone]. Interpretive data was last revised on 2020. Catherine Adams MD LAB MICROBIOLOGY - GENERAL ORDERABLES Final Result Performing Organization Address City/[facility]/ZIP Co de Phone Number [facility] Department [place] [address] * (ABNORMAL) Magnesium (06/15/2022 8:06 AM CDT) Pathologist [facility] Magnesium 2.8(H) 1.4 - 2.5 mg/dL [facility] Blood 06/15/2022 8:06 AM CDT 06/15/2022 8:50 AM CDT Marcelina Lo NP LAB BLOOD ORDERABLES Final Re sult Performing Organization Address [facility] Co de Phone Number [facility] [place] [address] * (ABNORMAL) Comprehensive metabolic panel (06/15/2022 8:06 AM CDT) Pathologist [facility] Sodium 134(L) 135 - 145 mmol/L [facility] Potassium, pl 5.0(H) 3.3 - 4.9 mmol/L [facility] Chloride 99 97 - 110 mmol/L [facility] CO2 26 22 - 32 mmol/L [facility] Anion gap 9 2 - 15 mmol/L [facility] BUN 21 8 - 25 mg/dL [facility] Creatinine 2.73(H) 0.80 - 1.30 mg/dL [facility] Glucose 273(H) 70 - 199 mg/dL [facility] Comment: Interpretive Data Fasting glucose [...] 2017. Calcium 8.8 8.5 - 10.3 mg/dL [facility] Bilirubin, total 0.5 0.1 - 1.2 mg/dL [facility] Protein, pl 6.2(L) 6.5 - 8.5 g/dL [facility] Albumin 2.7(L) 3.5 - 5.0 g/dL [facility] Alk phos 256(H) 40 - 130 Units/L [facility] ALT 44 7 - 55 Units/L [facility] AST 61(H) 10 - 50 Units/L [facility] Blood 06/15/2022 8:06 AM CDT 06/15/2022 8:50 AM CDT us Marcelina Lo PRODUCT MANAGEMENT SPECIALIST LAB BLOOD ORDERABLES Final Re sult [facility] Department [place] [address] * (ABNORMAL) CBC with auto differential (06/15/2022 8:06 AM CDT) Pathologist [facility] WBC 13.2(H) 3.8 - 9.9 K/cumm [facility] Hgb 7.7(L) 13.0 - 17.5 g/dL [facility] Hct 24.1(L) 38.9 - 50.3 % [facility] Plt 228 150 - 400 K/cumm [facility] MPV 10.6 9.1 - 12.3 fL [facility] RBC 2.45(L) 4.30 - 5.80 M/cumm [facility] MCV 98.4(H) 81.3 - 96.4 fL [facility] MCH 31.4 27.1 - 33.3 pg [facility] MCHC 32.0(L) 32.3 - 35.7 g/dL [facility] RDW CV 14.5 11.1 - 14.9 % [facility] RDW SD 49.6(H) 35.7 - 48.1 fL [facility] NRBC abs 0.11(H) 0.00 - 0.01 K/cumm [facility] Blood 06/15/2022 8:06 AM CDT 06/15/2022 8:50 AM CDT us Marcelina Lo NP LAB BLOOD ORDERABLES Final Re sult [facility] Department [place] [address] * XR Chest 1 View (06/15/2022 5:21 AM CDT) Anatomical Region Laterality Modality Body, Chest N/A Computed Radiogr aphy 06/15/2022 8:52 AM CDT Impressions 06/15/2022 9:21 AM CDT Comparison is made to 06/14/2022. Endotracheal tube terminates near the thoracic inlet, approximately 7 cm above the boni. Recommend advancement. Gastric tube terminates below left hemidiaphragm out of the [id number]. A left internal jugular central venous catheter [...] terminates below left hemidiaphragm out of the [id number]. A left internal jugular central venous catheter [...] (ABNORMAL) POCT glucose (06/15/2022 3:37 AM CDT) Glucose, POC 264(H) 70 - 199 mg/dL [facility] Blood 06/15/2022 3:37 AM CDT 06/15/2022 3:37 AM CDT Catherine Adams MD LAB POCT ORDERABLES - DEVIC E Final Result Performing Organization Address City/[facility]/ZIP Co de Phone Number [facility] Department [place] [address] * Lactate, whole blood (06/15/2022 3:37 AM CDT) [facility] Signature Lactate, bld 0.8 0.7 - 2.0 mmol/L [facility] Blood 06/15/2022 3:37 AM CDT 06/15/2022 3:46 AM CDT Marcelina Lo NP LAB BLOOD ORDERABLES Final Re sult Performing Organization Address City/[facility]/ZIP Co de Phone Number [facility] Department [place] [address] * (ABNORMAL) Blood gas, arterial (06/15/2022 3:37 AM CDT) Pathologist [facility] pH, Art 7.36 7.35 - 7.45 [facility] PCO2, Arterial 41 35 - 45 mmHg [facility] PO2, Arterial 64(L) 83 - 108 mmHg [facility] HCO3 Art (Calculated) 24 20 - 30 mmol/L [facility] BE, art -2 mmol/L [facility] Comment: Interpretive Data No Reference Range Established Current Interpretive Data was last revised on 2017 O2 Sat Art (Measured) 92 90 - 95 % [facility] Blood 06/15/2022 3:37 AM CDT 06/15/2022 3:46 AM CDT us Marcelina Lo PRODUCT MANAGEMENT SPECIALIST LAB BLOOD ORDERABLES Final Re sult [facility] Department [place] [address] * Pneumonia PCR Tracheal aspirate (06/15/2022 1:53 AM CDT) [facility] C. pneumoniae DNA Not Detected Not Detected [facility] Legionella pneumophila DNA Not Detected Not Detected [facility] M. pneumoniae DNA Not Detected Not Detected [facility] Adenovirus DNA Not Detected Not Detected [facility] Coronavirus (229E, OC43, HKU1, NL63) RNA Not Detected Not Detected [facility] Metapneumovirus RNA Not Detected Not Detected [facility] Rhinovirus/Enterov irus RNA Not Detected Not Detected [facility] Influenza A RNA Not Detected Not Detected [facility] Influenza B RNA Not Detected Not Detected [facility] Parainfluenza virus (1-4) RNA Not Detected Not Detected [facility] RSV RNA Not Detected Not Detected [facility] Tracheal aspirate 06/15/2022 1:53 AM CDT 06/15/2022 4:22 AM CDT Narrative [facility] - 06/15/2022 5:52 AM CDT The BioFire [...] rule out infection/co-infection with other organisms. The Checkpoint [employer] Pneumonia Panel is FDA cleared for lower respiratory tract specimens. The performance characteristics of this assay have been determined by [facility]. Current interpretive data was last revised on 2021. Catherine Adams MD LAB MICROBIOLOGY - GENERAL ORDERABLES Final Result [facility] Department [place] [address] * Pneumonia PCR with aerobic culture and Gram stain Tracheal aspirate (06/15/2022 1:53 AM CDT) Direct Specimen Exam Molecular Analysis: Rapid molecular analysis has NOT detected bacterial targets (for a list of targets evaluated, refer to the interpretive data for this specimen). Correlation of molecular analysis with culture results is recommended. [facility] Direct Specimen Exam Stain: Few polymorphonuclear leukocytes seen. Few squamous epithelial cells seen. Few mixed bacterial stone seen on Gram stain. [facility] Report Final Report: Insignificant growth based on current clinical standards. [facility] Tracheal aspirate 06/15/2022 1:53 AM CDT 06/15/2022 3:09 AM CDT Narrative [facility] - 06/17/2022 10:03 AM CDT When rapid molecular testing results are reported, testing completed using the RepplerArray Pneumonia Panel. ??This molecular assay detects: Acinetobacter [...] performance characteristics have been confirmed by the [facility] Laboratory. ??The performance of the FilmArray Pneumonia Panel has not been established for monitoring treatment of infection and bacterial nucleic acids may persist independent of organism viability. us Catherine Adams MD LAB MICROBIOLOGY - GENERAL ORDERABLES Final Result [facility] Department [place] [address] * (ABNORMAL) Blood gas, arterial (06/14/2022 11:53 PM CDT) pH, Art 7.36 7.35 - 7.45 [facility] PCO2, Arterial 43 35 - 45 mmHg [facility] PO2, Arterial 77(L) 83 - 108 mmHg [facility] HCO3 Art (Calculated) 25 20 - 30 mmol/L [facility] BE, art -1 mmol/L [facility] Comment: Interpretive Data No Reference Range Established Current Interpretive Data was last revised on 2017 O2 Sat Art (Measured) 94 90 - 95 % [facility] Blood 06/14/2022 11:5 3 PM CDT 06/14/2022 11:59 PM CDT us Marcelina Lo PRODUCT MANAGEMENT SPECIALIST LAB BLOOD ORDERABLES Final Re sult Performing Organization Address [facility] Co de Phone Number [facility] Department [place] [address] * POCT glucose (06/14/2022 11:52 PM CDT) Glucose, POC 176 70 - 199 mg/dL [facility] Blood 06/14/2022 11:5 2 PM CDT 06/14/2022 11:52 PM CDT us Catherine Adams MD LAB POCT ORDERABLES - DEVIC E Final Result Performing Organization Address [facility] de Phone Number [facility] Department [place] [address] * (ABNORMAL) eGFR (06/14/2022 7:41 PM CDT) eGFR 35(L) 90 - 130 mL/min/1. 73 m2 [facility] Comment: Interpretive Data Reference Interval [...] Adams MD LAB BLOOD ORDERABLES Final Result [facility] Department [place] [address] * (ABNORMAL) Differential, auto (06/14/2022 7:41 PM CDT) Neutrophil abs 9.9(H) 1.7 - 6.5 K/cumm [facility] Imm gran abs 1.5(H) 0.0 - 0.1 K/cumm [facility] Lymphocyte abs 1.7 0.8 - 3.3 K/cumm [facility] Monocyte abs 1.6(H) 0.2 - 0.8 K/cumm [facility] Eosinophil abs 0.3 0.0 - 0.5 K/cumm [facility] Basophil abs 0.0 0.0 - 0.1 K/cumm [facility] Neutrophil pct 66.0 % [facility] Comment: Interpretive Data Percent cell count reference ranges are not reported, since discordance with absolute values may lead to misinterpretation of CBC data. Current Interpretive Data was last revised on 2017. Imm gran pct 9.6 % [facility] Comment: Interpretive Data Percent cell count reference ranges are not reported, since discordance with absolute values may lead to misinterpretation of CBC data. Current Interpretive Data was last revised on 2017. Lymphocyte pct 11.2 % [facility] Comment: Interpretive Data Percent cell count reference ranges are not reported, since discordance with absolute values may lead to misinterpretation of CBC data. Current Interpretive Data was last revised on 2017. Monocyte pct 10.8 % [facility] Comment: Interpretive Data Percent cell count reference ranges are not reported, since discordance with absolute values may lead to misinterpretation of CBC data. Current Interpretive Data was last revised on 2017. Eosinophil pct 2.1 % [facility] Comment: Interpretive Data Percent cell count reference ranges are not reported, since discordance with absolute values may lead to misinterpretation of CBC data. Current Interpretive Data was last revised on 2017. Basophil pct 0.3 % [facility] Comment: Interpretive Data Percent cell count reference ranges are not reported, since discordance with absolute values may lead to misinterpretation of CBC data. Current Interpretive Data was last revised on 2017. Blood 06/14/2022 7:41 PM CDT 06/14/2022 8:01 PM CDT Catherine Adams MD LAB BLOOD ORDERABLES Final Result Performing Organization Address City/[facility]/ZIP Co de Phone Number [facility] Department [place] [address] * (ABNORMAL) Magnesium (06/14/2022 7:41 PM CDT) Magnesium 3.0(H) 1.4 - 2.5 mg/dL [facility] Blood 06/14/2022 7:41 PM CDT 06/14/2022 7:49 PM CDT us Catherine Adams MD LAB BLOOD ORDERABLES Final Result Performing Organization Address City/[facility]/ZIP Co de Phone Number [facility] Department [place] [address] * (ABNORMAL) Comprehensive metabolic panel (06/14/2022 7:41 PM CDT) Sodium 138 135 - 145 mmol/L [facility] Potassium, pl 4.7 3.3 - 4.9 mmol/L [facility] Chloride 102 97 - 110 mmol/L [facility] CO2 27 22 - 32 mmol/L [facility] Anion gap 9 2 - 15 mmol/L [facility] BUN 17 8 - 25 mg/dL [facility] Creatinine 2.22(H) 0.80 - 1.30 mg/dL [facility] Glucose 182 70 - 199 mg/dL [facility] Comment: Interpretive Data Fasting glucose [...] 2017. Calcium 9.1 8.5 - 10.3 mg/dL [facility] Bilirubin, total 0.6 0.1 - 1.2 mg/dL [facility] Protein, pl 6.5 6.5 - 8.5 g/dL [facility] Albumin 3.1(L) 3.5 - 5.0 g/dL [facility] Alk phos 264(H) 40 - 130 Units/L [facility] ALT 45 7 - 55 Units/L [facility] AST 73(H) 10 - 50 Units/L [facility] Blood 06/14/2022 7:41 PM CDT 06/14/2022 7:49 PM CDT us Catherine Adams MD LAB BLOOD ORDERABLES Final Result [facility] Department [place] [address] * (ABNORMAL) Triglycerides (06/14/2022 7:41 PM CDT) Triglycerides 482(H) <=149 mg/dL [facility] Comment: Interpretive Data Ages < or = [...] PM CDT 06/14/2022 7:49 PM CDT Narrative [facility] - 06/14/2022 8:29 PM CDT While on propofol infusion. us Catherine Adams MD LAB BLOOD ORDERABLES Final Result [facility] [place] [address] * Phosphorus (06/14/2022 7:41 PM CDT) Phosphorus, pl 3.1 2.3 - 4.5 mg/dL [facility] Blood 06/14/2022 7:41 PM CDT 06/14/2022 7:49 PM CDT Marcelina Lo PRODUCT MANAGEMENT SPECIALIST LAB BLOOD ORDERABLES Final Re sult Performing Organization Address [facility] de Phone Number [facility] [place] [address] * (ABNORMAL) Beta-hydroxybutyrate (06/14/2022 7:41 PM CDT) [facility] Beta-Hydroxybut yrate 0.7(H) 0.0 - 0.5 mmol/L [facility] Blood 06/14/2022 7:41 PM CDT 06/14/2022 7:47 PM CDT Marcelina Lo PRODUCT MANAGEMENT SPECIALIST LAB BLOOD ORDERABLES Edited R esult - Final Performing Organization Address [facility] de Phone Number [facility] Department [place] [address] * Lipase (06/14/2022 7:41 PM CDT) [facility] Lipase 25 10 - 99 Units/L [facility] Blood 06/14/2022 7:41 PM CDT 06/14/2022 7:49 PM CDT Marcelina Lo PRODUCT MANAGEMENT SPECIALIST LAB BLOOD ORDERABLES Final Re sult Performing Organization Address [facility] de Phone Number [facility] [place] [address] * (ABNORMAL) CBC with auto differential (06/14/2022 7:41 PM CDT) [facility] WBC 15.0(H) 3.8 - 9.9 K/cumm [facility] Hgb 8.3(L) 13.0 - 17.5 g/dL [facility] Hct 24.9(L) 38.9 - 50.3 % [facility] Plt 218 150 - 400 K/cumm [facility] MPV 10.4 9.1 - 12.3 fL [facility] RBC 2.62(L) 4.30 - 5.80 M/cumm [facility] MCV 95.0 81.3 - 96.4 fL [facility] MCH 31.7 27.1 - 33.3 pg [facility] MCHC 33.3 32.3 - 35.7 g/dL [facility] RDW CV 14.1 11.1 - 14.9 % [facility] RDW SD 47.3 35.7 - 48.1 fL [facility] NRBC abs 0.08(H) 0.00 - 0.01 K/cumm [facility] Blood 06/14/2022 7:41 PM CDT 06/14/2022 8:01 PM CDT us Marcelina Lo PRODUCT MANAGEMENT SPECIALIST LAB BLOOD ORDERABLES Final Re sult Performing Organization Address City/[facility]/ZIP Co de Phone Number [facility] Department [place] [address] * POCT glucose (06/14/2022 7:40 PM CDT) [facility] Glucose, POC 190 70 - 199 mg/dL [facility] Blood 06/14/2022 7:40 PM CDT 06/14/2022 7:40 PM CDT Catherine Adams MD LAB POCT ORDERABLES - DEVIC E Final Result Performing Organization Address City/[facility]/ZIP Co de Phone Number [facility] Department [place] [address] * (ABNORMAL) Blood gas, arterial (06/14/2022 4:19 PM CDT) [facility] pH, Art 7.38 7.35 - 7.45 [facility] PCO2, Arterial 41 35 - 45 mmHg [facility] PO2, Arterial 76(L) 83 - 108 mmHg [facility] HCO3 Art (Calculated) 25 20 - 30 mmol/L [facility] BE, art -1 mmol/L [facility] Comment: Interpretive Data No Reference Range Established Current Interpretive Data was last revised on 2017 O2 Sat Art (Measured) 94 90 - 95 % [facility] Blood 06/14/2022 4:19 PM CDT 06/14/2022 4:38 PM CDT us Marcelina Lo PRODUCT MANAGEMENT SPECIALIST LAB BLOOD ORDERABLES Final Re sult Performing Organization Address City/[facility] Co de Phone Number [facility] [place] [address] * (ABNORMAL) POCT glucose (06/14/2022 4:16 PM CDT) Glucose, POC 229(H) 70 - 199 mg/dL [facility] Glucose comment 1 Glu2: RN/ Notified [facility] Blood 06/14/2022 4:16 PM CDT 06/14/2022 4:16 PM CDT us Catherine Adams MD LAB POCT ORDERABLES - DEVIC E Final Result Performing Organization Address [facility] Co de Phone Number [facility] [place] [address] * (ABNORMAL) POCT glucose (06/14/2022 11:21 AM CDT) Glucose, POC 202(H) 70 - 199 mg/dL [facility] Blood 06/14/2022 11:2 1 AM CDT 06/14/2022 11:21 AM CDT us Catherine Adams MD LAB POCT ORDERABLES - DEVIC E Final Result Performing Organization Address City/[facility]/ZIP Co de Phone Number [facility] [place] [address] * XR Chest 1 View (06/14/2022 10:56 [...] * POCT glucose (06/14/2022 8:18 AM CDT) Glucose, POC 172 70 - 199 mg/dL [facility] Blood 06/14/2022 8:18 AM CDT 06/14/2022 8:18 AM CDT us Catherine Adams MD LAB POCT ORDERABLES - DEVIC E Final Result Performing Organization Address City/[facility]/ZIP Co de Phone Number ALESSANDRA CARRION [facility] [place] [address] * (ABNORMAL) eGFR (06/14/2022 8:16 AM CDT) eGFR 35(L) 90 - 130 mL/min/1. 73 m2 [facility] Comment: Interpretive Data Reference Interval Normal ?>/= [...] BLOOD ORDERABLES Final Result Performing Organization Address City/[facility]/ZIP Co de Phone Number ALESSANDRA [facility] Department [place] [address] * (ABNORMAL) Differential, auto (06/14/2022 8:16 AM CDT) Neutrophil abs 10.1(H) 1.7 - 6.5 K/cumm [facility] Imm gran abs 1.8(H) 0.0 - 0.1 K/cumm [facility] Lymphocyte abs 2.0 0.8 - 3.3 K/cumm [facility] Monocyte abs 1.5(H) 0.2 - 0.8 K/cumm [facility] Eosinophil abs 0.3 0.0 - 0.5 K/cumm [facility] Basophil abs 0.1 0.0 - 0.1 K/cumm [facility] Neutrophil pct 64.1 % [facility] Comment: Interpretive Data Percent cell count reference ranges are not reported, since discordance with absolute values may lead to misinterpretation of CBC data. Current Interpretive Data was last revised on 2017. Imm gran pct 11.4 % [facility] Comment: Interpretive Data Percent cell count reference ranges are not reported, since discordance with absolute values may lead to misinterpretation of CBC data. Current Interpretive Data was last revised on 2017. Lymphocyte pct 12.7 % [facility] Comment: Interpretive Data Percent cell count reference ranges are not reported, since discordance with absolute values may lead to misinterpretation of CBC data. Current Interpretive Data was last revised on 2017. Monocyte pct 9.5 % [facility] Comment: Interpretive Data Percent cell count reference ranges are not reported, since discordance with absolute values may lead to misinterpretation of CBC data. Current Interpretive Data was last revised on 2017. Eosinophil pct 1.9 % [facility] Comment: Interpretive Data Percent cell count reference ranges are not reported, since discordance with absolute values may lead to misinterpretation of CBC data. Current Interpretive Data was last revised on 2017. Basophil pct 0.4 % [facility] Comment: Interpretive Data Percent cell count reference ranges are not reported, since discordance with absolute values may lead to misinterpretation of CBC data. Current Interpretive Data was last revised on 2017. Blood 06/14/2022 8:16 AM CDT 06/14/2022 8:29 AM CDT Catherine Adams MD LAB BLOOD ORDERABLES Final Result Performing Organization Address [facility] Co de Phone Number [facility] [place] [address] * (ABNORMAL) aPTT (06/14/2022 8:16 AM CDT) aPTT 67(H) 27 - 37 sec [facility] Comment: Interpretive Data Therapeutic heparin range: 60.0 - 94.0 seconds. Based on correlation with therapeutic heparin activity range of 0.3-0.7 Units/mL. Current interpretive data was last revised on 2020. Blood 06/14/2022 8:16 AM CDT 06/14/2022 8:30 AM CDT Narrative [facility] - 06/14/2022 8:54 AM CDT Draw STAT [...] BLOOD ORDERABLES Final Result Performing Organization Address [facility] de Phone Number [facility] [place] [address] * (ABNORMAL) Blood gas, arterial (06/14/2022 8:16 AM CDT) pH, Art 7.41 7.35 - 7.45 [facility] PCO2, Arterial 38 35 - 45 mmHg [facility] PO2, Arterial 89 83 - 108 mmHg [facility] HCO3 Art (Calculated) 25 20 - 30 mmol/L [facility] BE, art 0 mmol/L [facility] Comment: Interpretive Data No Reference Range Established Current Interpretive Data was last revised on 2017 O2 Sat Art (Measured) 97(H) 90 - 95 % [facility] Blood 06/14/2022 8:16 AM CDT 06/14/2022 8:27 AM CDT Marcelina Lo PRODUCT MANAGEMENT SPECIALIST LAB BLOOD ORDERABLES Final Re sult Performing Organization Address [facility] Co de Phone Number [facility] Department [place] [address] * (ABNORMAL) Magnesium (06/14/2022 8:16 AM CDT) Pathologist [facility] Magnesium 2.9(H) 1.4 - 2.5 mg/dL [facility] Blood 06/14/2022 8:16 AM CDT 06/14/2022 8:29 AM CDT Marcelina Lo PRODUCT MANAGEMENT SPECIALIST LAB BLOOD ORDERABLES Final Re sult Performing Organization Address [facility] de Phone Number [facility] Department [place] [address] * (ABNORMAL) Comprehensive metabolic panel (06/14/2022 8:16 AM CDT) [facility] Sodium 134(L) 135 - 145 mmol/L [facility] Potassium, pl 4.7 3.3 - 4.9 mmol/L [facility] Comment:Hemolyzed; Potassium value may be falsely elevated by as much as 0.3-0.5 mmol/L. Suggest redraw and reanalysis. Chloride 100 97 - 110 mmol/L [facility] CO2 25 22 - 32 mmol/L [facility] Anion gap 9 2 - 15 mmol/L [facility] BUN 16 8 - 25 mg/dL [facility] Creatinine 2.19(H) 0.80 - 1.30 mg/dL [facility] Glucose 171 70 - 199 mg/dL [facility] Comment: Interpretive Data Fasting glucose [...] 2017. Calcium 9.5 8.5 - 10.3 mg/dL [facility] Bilirubin, total 0.6 0.1 - 1.2 mg/dL [facility] Protein, pl 6.6 6.5 - 8.5 g/dL [facility] Albumin 3.1(L) 3.5 - 5.0 g/dL [facility] Alk phos 276(H) 40 - 130 Units/L [facility] ALT 48 7 - 55 Units/L [facility] AST 81(H) 10 - 50 Units/L [facility] Comment:Hemolyzed; result ma y be falsely elevated Blood 06/14/2022 8:16 AM CDT 06/14/2022 8:29 AM CDT us Marcelina Lo PRODUCT MANAGEMENT SPECIALIST LAB BLOOD ORDERABLES Final Re sult [facility] Department [place] [address] * (ABNORMAL) CBC with auto differential (06/14/2022 8:16 AM CDT) WBC 15.7(H) 3.8 - 9.9 K/cumm [facility] Hgb 8.3(L) 13.0 - 17.5 g/dL [facility] Hct 25.5(L) 38.9 - 50.3 % [facility] Plt 217 150 - 400 K/cumm [facility] MPV 10.6 9.1 - 12.3 fL [facility] RBC 2.63(L) 4.30 - 5.80 M/cumm [facility] MCV 97.0(H) 81.3 - 96.4 fL [facility] MCH 31.6 27.1 - 33.3 pg [facility] MCHC 32.5 32.3 - 35.7 g/dL [facility] RDW CV 13.8 11.1 - 14.9 % [facility] RDW SD 48.2(H) 35.7 - 48.1 fL [facility] NRBC abs 0.07(H) 0.00 - 0.01 K/cumm [facility] Blood 06/14/2022 8:16 AM CDT 06/14/2022 8:29 AM CDT us Marcelina Lo PRODUCT MANAGEMENT SPECIALIST LAB BLOOD ORDERABLES Final Re sult [facility] Department [place] [address] * POCT glucose (06/14/2022 7:46 AM CDT) [facility] Signature Glucose, POC 180 70 - 199 mg/dL [facility] Blood 06/14/2022 7:46 AM CDT 06/14/2022 7:46 AM CDT us Catherine Adams MD LAB POCT ORDERABLES - DEVIC E Final Result Performing Organization Address City/[facility]/ZIP Co de Phone Number [facility] Department [place] [address] * XR Chest 1 View (06/14/2022 4:14 [...] Glucose, POC 163 70 - 199 mg/dL [facility] Blood 06/14/2022 4:01 AM CDT 06/14/2022 4:01 AM CDT Catherine Adams MD LAB POCT ORDERABLES - DEVIC E Final Result [facility] Department [place] [address] * POCT glucose (06/13/2022 11:38 PM CDT) Glucose, POC 175 70 - 199 mg/dL [facility] Blood 06/13/2022 11:3 8 PM CDT 06/13/2022 11:38 PM CDT us Catherine Adams MD LAB POCT ORDERABLES - DEVIC E Final Result Performing Organization Address [facility] de Phone Number [facility] [place] [address] * (ABNORMAL) aPTT (06/13/2022 10:49 PM CDT) aPTT 72(H) 27 - 37 sec [facility] Comment: Interpretive Data Therapeutic heparin range: 60.0 - 94.0 seconds. Based on correlation with therapeutic heparin activity range of 0.3-0.7 Units/mL. Current interpretive data was last revised on 2020. Blood 06/13/2022 10:4 9 PM CDT 06/13/2022 11:55 PM CDT Narrative [facility] - 06/14/2022 12:04 AM CDT Check aPTT 6 hours after the start of Heparin infusion and 6 hours after any change in Heparin rate. (Target aPTT 61-80 seconds). Call Nephrology if outside range. us Catherine Adams MD LAB BLOOD ORDERABLES Final Result Performing Organization Address [facility] de Phone Number [facility] Department [place] [address] * (ABNORMAL) Vancomycin level trough (06/13/2022 10:49 PM CDT) Vancomycin trough 23.3(H) 10.0 - 20.0 mcg/mL [facility] Blood 06/13/2022 10:4 9 PM CDT 06/13/2022 11:10 PM CDT us Catherine Adams MD LAB BLOOD ORDERABLES Final Result Performing Organization Address [facility]/ZIP Co de Phone Number [facility] Department [place] [address] * (ABNORMAL) CBC without differential (06/13/2022 10:49 PM CDT) WBC 15.0(H) 3.8 - 9.9 K/cumm [facility] Hgb 7.7(L) 13.0 - 17.5 g/dL [facility] Hct 22.7(L) 38.9 - 50.3 % [facility] Plt 206 150 - 400 K/cumm [facility] MPV 10.6 9.1 - 12.3 fL [facility] RBC 2.41(L) 4.30 - 5.80 M/cumm [facility] MCV 94.2 81.3 - 96.4 fL [facility] MCH 32.0 27.1 - 33.3 pg [facility] MCHC 33.9 32.3 - 35.7 g/dL [facility] RDW CV 13.7 11.1 - 14.9 % [facility] RDW SD 46.4 35.7 - 48.1 fL [facility] NRBC abs 0.05(H) 0.00 - 0.01 K/cumm [facility] Blood 06/13/2022 10:4 9 PM CDT 06/13/2022 11:10 PM CDT Catherine Adams MD LAB BLOOD ORDERABLES Final Result Performing Organization Address City/[facility] Co de Phone Number [facility] Department [place] [address] * (ABNORMAL) POCT glucose (06/13/2022 10:48 PM CDT) Glucose, POC 200(H) 70 - 199 mg/dL [facility] Blood 06/13/2022 10:4 8 PM CDT 06/13/2022 10:48 PM CDT us Catherine Adams MD LAB POCT ORDERABLES - DEVIC E Final Result [facility] Department [place] [address] * POCT glucose (06/13/2022 8:28 PM CDT) Pathologist [facility] Glucose, POC 182 70 - 199 mg/dL [facility] Blood 06/13/2022 8:28 PM CDT 06/13/2022 8:28 PM CDT Catherine Adams MD LAB POCT ORDERABLES - DEVIC E Final Result Performing Organization Address [facility] de Phone Number [facility] Department [place] [address] * (ABNORMAL) eGFR (06/13/2022 8:17 PM CDT) Pathologist [facility] eGFR 35(L) 90 - 130 mL/min/1. 73 m2 [facility] Comment: Interpretive Data Reference Interval [...] Adams MD LAB BLOOD ORDERABLES Final Result [facility] Department [place] [address] * (ABNORMAL) Differential, auto (06/13/2022 8:17 PM CDT) Neutrophil abs 10.6(H) 1.7 - 6.5 K/cumm [facility] Imm gran abs 2.2(H) 0.0 - 0.1 K/cumm [facility] Lymphocyte abs 2.3 0.8 - 3.3 K/cumm [facility] Monocyte abs 1.5(H) 0.2 - 0.8 K/cumm [facility] Eosinophil abs 0.3 0.0 - 0.5 K/cumm [facility] Basophil abs 0.1 0.0 - 0.1 K/cumm [facility] Neutrophil pct 62.7 % [facility] Comment: Confirmed by smear review Interpretive Data Percent cell count reference ranges are not reported, since discordance with absolute values may lead to misinterpretation of CBC data. Current Interpretive Data was last revised on 2017. Imm gran pct 13.0 % [facility] Comment: Interpretive Data Percent cell count reference ranges are not reported, since discordance with absolute values may lead to misinterpretation of CBC data. Current Interpretive Data was last revised on 2017. Lymphocyte pct 13.4 % [facility] Comment: Interpretive Data Percent cell count reference ranges are not reported, since discordance with absolute values may lead to misinterpretation of CBC data. Current Interpretive Data was last revised on 2017. Monocyte pct 8.9 % [facility] Comment: Interpretive Data Percent cell count reference ranges are not reported, since discordance with absolute values may lead to misinterpretation of CBC data. Current Interpretive Data was last revised on 2017. Eosinophil pct 1.7 % [facility] Comment: Interpretive Data Percent cell count reference ranges are not reported, since discordance with absolute values may lead to misinterpretation of CBC data. Current Interpretive Data was last revised on 2017. Basophil pct 0.3 % [facility] Comment: Interpretive Data Percent cell count reference ranges are not reported, since discordance with absolute values may lead to misinterpretation of CBC data. Current Interpretive Data was last revised on 2017. Blood 06/13/2022 8:17 PM CDT 06/13/2022 8:34 PM CDT Catherine Adams MD LAB BLOOD ORDERABLES Final Result Performing Organization Address [facility] Co de Phone Number [facility] Department [place] [address] * (ABNORMAL) Magnesium (06/13/2022 8:17 PM CDT) Pathologist [facility] Magnesium 2.7(H) 1.4 - 2.5 mg/dL [facility] Blood 06/13/2022 8:17 PM CDT 06/13/2022 8:33 PM CDT Catherine Adams MD LAB BLOOD ORDERABLES Final Result Performing Organization Address City/[facility] de Phone Number [facility] Department [place] [address] * (ABNORMAL) Comprehensive metabolic panel (06/13/2022 8:17 PM CDT) Pathologist [facility] Sodium 135 135 - 145 mmol/L [facility] Potassium, pl 4.9 3.3 - 4.9 mmol/L [facility] Chloride 99 97 - 110 mmol/L [facility] CO2 26 22 - 32 mmol/L [facility] Anion gap 10 2 - 15 mmol/L [facility] BUN 17 8 - 25 mg/dL [facility] Creatinine 2.21(H) 0.80 - 1.30 mg/dL [facility] Glucose 179 70 - 199 mg/dL [facility] Comment: Interpretive Data Fasting glucose [...] 2017. Calcium 8.9 8.5 - 10.3 mg/dL [facility] Bilirubin, total 0.6 0.1 - 1.2 mg/dL [facility] Protein, pl 6.2(L) 6.5 - 8.5 g/dL [facility] Albumin 3.0(L) 3.5 - 5.0 g/dL [facility] Alk phos 274(H) 40 - 130 Units/L [facility] ALT 47 7 - 55 Units/L [facility] AST 80(H) 10 - 50 Units/L [facility] Blood 06/13/2022 8:17 PM CDT 06/13/2022 8:33 PM CDT us Catherine Adams MD LAB BLOOD ORDERABLES Final Result [facility] Department [place] [address] * Lactate, whole blood (06/13/2022 8:17 PM CDT) Lactate, bld 0.8 0.7 - 2.0 mmol/L [facility] Blood 06/13/2022 8:17 PM CDT 06/13/2022 8:26 PM CDT us Marcelina Lo PRODUCT MANAGEMENT SPECIALIST LAB BLOOD ORDERABLES Final Re sult Performing Organization Address [facility] Co de Phone Number [facility] [place] [place] [address] * (ABNORMAL) Blood gas, arterial (06/13/2022 8:17 PM CDT) pH, Art 7.42 7.35 - 7.45 [facility] PCO2, Arterial 37 35 - 45 mmHg [facility] PO2, Arterial 73(L) 83 - 108 mmHg [facility] HCO3 Art (Calculated) 24 20 - 30 mmol/L [facility] BE, art 0 mmol/L [facility] Comment: Interpretive Data No Reference Range Established Current Interpretive Data was last revised on 2017 O2 Sat Art (Measured) 94 90 - 95 % [facility] Blood 06/13/2022 8:17 PM CDT 06/13/2022 8:26 PM CDT Marcelina Lo PRODUCT MANAGEMENT SPECIALIST LAB BLOOD ORDERABLES Final Re sult Performing Organization Address [facility] Co de Phone Number [facility] Department [place] [address] * (ABNORMAL) Triglycerides (06/13/2022 8:17 PM CDT) Triglycerides 324(H) <=149 mg/dL [facility] Comment: Interpretive Data Ages < [...] PM CDT 06/13/2022 8:33 PM CDT Narrative [facility] - 06/13/2022 9:29 PM CDT While on propofol infusion. Catherine Adams MD LAB BLOOD ORDERABLES Final Result Performing Organization Address City/[facility]/ZIP Co de Phone Number [facility] Department [place] [address] * Phosphorus (06/13/2022 8:17 PM CDT) Phosphorus, pl 3.1 2.3 - 4.5 mg/dL [facility] Blood 06/13/2022 8:17 PM CDT 06/13/2022 8:33 PM CDT Marcelina Lo PRODUCT MANAGEMENT SPECIALIST LAB BLOOD ORDERABLES Final Re sult Performing Organization Address City/[facility]/ZIP Co de Phone Number [facility] Department [place] [address] * (ABNORMAL) Beta-hydroxybutyrate (06/13/2022 8:17 PM CDT) Beta-Hydroxybut yrate 1.2(H) 0.0 - 0.5 mmol/L [facility] Blood 06/13/2022 8:17 PM CDT 06/13/2022 8:34 PM CDT Marcelina Lo PRODUCT MANAGEMENT SPECIALIST LAB BLOOD ORDERABLES Edited R esult - Final [facility] [place] [address] * Lipase (06/13/2022 8:17 PM CDT) Pathologist [facility] Lipase 16 10 - 99 Units/L [facility] Blood 06/13/2022 8:17 PM CDT 06/13/2022 8:33 PM CDT Marcelina Lo PRODUCT MANAGEMENT SPECIALIST LAB BLOOD ORDERABLES Final Re sult Performing Organization Address [facility] Co de Phone Number [facility] [place] [address] * (ABNORMAL) CBC with auto differential (06/13/2022 8:17 PM CDT) [facility] WBC 16.9(H) 3.8 - 9.9 K/cumm [facility] Hgb 8.0(L) 13.0 - 17.5 g/dL [facility] Hct 24.2(L) 38.9 - 50.3 % [facility] Plt 202 150 - 400 K/cumm [facility] MPV 10.7 9.1 - 12.3 fL [facility] RBC 2.55(L) 4.30 - 5.80 M/cumm [facility] MCV 94.9 81.3 - 96.4 fL [facility] MCH 31.4 27.1 - 33.3 pg [facility] MCHC 33.1 32.3 - 35.7 g/dL [facility] RDW CV 13.7 11.1 - 14.9 % [facility] RDW SD 46.6 35.7 - 48.1 fL [facility] NRBC abs 0.07(H) 0.00 - 0.01 K/cumm [facility] Blood 06/13/2022 8:17 PM CDT 06/13/2022 8:34 PM CDT Marcelina Lo PRODUCT MANAGEMENT SPECIALIST LAB BLOOD ORDERABLES Final Re sult [facility] Department [place] [address] * XR Chest 1 View (06/13/2022 4:45 PM CDT) Anatomical Region Laterality Modality Body, Chest N/A Computed Radiogr aphy 06/13/2022 4:58 PM CDT Impressions 06/13/2022 4:58 PM CDT Comparison is made to the prior from 06/13/2022. Endotracheal tube terminates 3 cm above the boni. Nasogastric tube terminates below the diaphragms on the [id number]. Left internal jugular approach central venous catheter [...] tube terminates below the diaphragms on the [id number]. Left internal jugular approach central venous catheter tip overlies the confluence of the brachial cephalic veins, unchanged. Patchy bibasilar airspace opacities are increased from the prior radiograph earlier today, most consistent with interval aspiration. There is a small left pleural effusion. No pneumothorax. Electronically signed by: Abelardo Spencer M.D. us Catherine Adams MD IMG XR PROCEDURES Final Res ult * (ABNORMAL) aPTT (06/13/2022 4:12 PM CDT) aPTT 71(H) 27 - 37 sec ALESSANDRA CARRION Comment: Interpretive Data Therapeutic heparin range: 60.0 - 94.0 seconds. Based on correlation with therapeutic heparin activity range of 0.3-0.7 Units/mL. Current interpretive data was last revised on 2020. Blood 06/13/2022 4:12 PM CDT 06/13/2022 4:32 PM CDT Narrative [facility] - 06/13/2022 4:42 PM CDT Draw STAT [...] BLOOD ORDERABLES Final Result Performing Organization Address [facility] de Phone Number [facility] [place] [address] * (ABNORMAL) Blood gas, arterial (06/13/2022 4:12 PM CDT) Pathologist [facility] pH, Art 7.43 7.35 - 7.45 [facility] PCO2, Arterial 39 35 - 45 mmHg [facility] PO2, Arterial 63(L) 83 - 108 mmHg [facility] HCO3 Art (Calculated) 27 20 - 30 mmol/L [facility] BE, art 2 mmol/L [facility] Comment: Interpretive Data No Reference Range Established Current Interpretive Data was last revised on 2017 O2 Sat Art (Measured) 92 90 - 95 % [facility] Blood 06/13/2022 4:12 PM CDT 06/13/2022 4:20 PM CDT us Marcelina Lo NP LAB BLOOD ORDERABLES Final Re sult Performing Organization Address [facility] Co de Phone Number [facility] [place] [address] * Potassium, whole blood (06/13/2022 4:12 PM CDT) Pathologist [facility] Potassium, bld 4.5 3.3 - 4.9 mmol/L [facility] Blood 06/13/2022 4:12 PM CDT 06/13/2022 4:20 PM CDT Marcelina Lo PRODUCT MANAGEMENT SPECIALIST LAB BLOOD ORDERABLES Final Re sult Performing Organization Address City/[facility]/ZIP Co de Phone Number [facility] [place] [address] * Lactate, whole blood (06/13/2022 4:12 PM CDT) Lactate, bld 0.9 0.7 - 2.0 mmol/L [facility] Blood 06/13/2022 4:12 PM CDT 06/13/2022 4:20 PM CDT Marcelina Lo PRODUCT MANAGEMENT SPECIALIST LAB BLOOD ORDERABLES Final Re sult Performing Organization Address City/[facility]/ZIP Co de Phone Number [facility] [place] [address] * POCT glucose (06/13/2022 4:11 PM CDT) Glucose, POC 99 70 - 199 mg/dL [facility] Blood 06/13/2022 4:11 PM CDT 06/13/2022 4:11 PM CDT Catherine Adams MD LAB POCT ORDERABLES - DEVIC E Final Result [facility] [place] [address] * POCT glucose (06/13/2022 12:29 PM CDT) Glucose, POC 129 70 - 199 mg/dL [facility] Blood 06/13/2022 12:2 9 PM CDT 06/13/2022 12:29 PM CDT us Catherine Adams MD LAB POCT ORDERABLES - DEVIC E Final Result Performing Organization Address [facility] Co de Phone Number [facility] Department [place] [address] * (ABNORMAL) Blood gas, arterial (06/13/2022 12:20 PM CDT) pH, Art 7.40 7.35 - 7.45 [facility] PCO2, Arterial 42 35 - 45 mmHg [facility] PO2, Arterial 60(L) 83 - 108 mmHg [facility] HCO3 Art (Calculated) 27 20 - 30 mmol/L [facility] BE, art 2 mmol/L [facility] Comment: Interpretive Data No Reference Range Established Current Interpretive Data was last revised on 2017 O2 Sat Art (Measured) 90 90 - 95 % [facility] Blood 06/13/2022 12:2 0 PM CDT 06/13/2022 1:01 PM CDT us Marcelina Lo PRODUCT MANAGEMENT SPECIALIST LAB BLOOD ORDERABLES Final Re sult Performing Organization Address [facility] Co de Phone Number [facility] Department [place] [address] * XR Chest 1 View (06/13/2022 11:11 [...] Potassium, bld 5.7(H) 3.3 - 4.9 mmol/L [facility] Blood 06/13/2022 9:41 AM CDT 06/13/2022 9:47 AM CDT Marcelina Lo PRODUCT MANAGEMENT SPECIALIST LAB BLOOD ORDERABLES Final Re sult [facility] Department [place] [address] * Lactate, whole blood (06/13/2022 9:41 AM CDT) Lactate, bld 1.0 0.7 - 2.0 mmol/L [facility] Blood 06/13/2022 9:41 AM CDT 06/13/2022 9:47 AM CDT Marcelina Lo PRODUCT MANAGEMENT SPECIALIST LAB BLOOD ORDERABLES Final Re sult Performing Organization Address [facility] Co de Phone Number [facility] [place] [address] * (ABNORMAL) Blood gas, arterial (06/13/2022 9:41 AM CDT) pH, Art 7.40 7.35 - 7.45 [facility] PCO2, Arterial 40 35 - 45 mmHg [facility] PO2, Arterial 66(L) 83 - 108 mmHg [facility] HCO3 Art (Calculated) 26 20 - 30 mmol/L [facility] BE, art 0 mmol/L [facility] Comment: Interpretive Data No Reference Range Established Current Interpretive Data was last revised on 2017 O2 Sat Art (Measured) 93 90 - 95 % [facility] Blood 06/13/2022 9:41 AM CDT 06/13/2022 9:47 AM CDT Marcelina Lo PRODUCT MANAGEMENT SPECIALIST LAB BLOOD ORDERABLES Final Re sult Performing Organization Address [facility] de Phone Number [facility] Department [place] [address] * (ABNORMAL) POCT glucose (06/13/2022 9:38 AM CDT) Glucose, POC 215(H) 70 - 199 mg/dL [facility] Blood 06/13/2022 9:38 AM CDT 06/13/2022 9:38 AM CDT Catherine Adams MD LAB POCT ORDERABLES - DEVIC E Final Result Performing Organization Address [facility] Co de Phone Number [facility] Department [place] [address] * TRANSTHORACIC ECHO (TTE) COMPLETE W DOPPLER/CF W CONTRAST W BUBBLE (06/13/2022 9:34 AM CDT) LV EF 65 % CARDIOREPORT Anatomical Region Laterality Modality Ultrasound 06/13/2022 7:10 AM CDT Narrative 06/13/2022 11:08 AM CDT Patient name: Adelia Garvin Date of test: 06/13/2022 Type of test: TTE w/Doppler Hospital #: [id number] Date of : 1970 (M) [facility] Manager: Elli Larsen RDCS Referring Physician: CATHERINE ADAMS MD Contrast Agent: 0.8 ml. Optison Admin., (2.2 ml Wasted) and NS Bubble Study Contrast Administered by: Ginna RN Supervised/Interpreted by: Vincenzo Stoddard MD Diagnosis: Location: [facility] Reason for test: TTE with bubble MV [...] 2=Hypo 3=Akinetic 4=Dyskin./Aneurysm 0=Not visualized) Parasternal Long [place]:MAS=1 BAS=1 MIL=1 IVETH=1 Parasternal Short [place]:MAS=1 MIS=1 MS=1 MIL=1 MAL=1 MA=1 Apical 4 Chambers:=1 MIS=1 BIS=1 BAL=1 MAL=1 AL=1 AC=1 Apical 2 Chambers:AI=1 MS=1 BI=1 BA=1 MA=1 AA=1 AC=1 LV Global [...] MD By signing this report, the attending proof carrier certifies that he or she has personally supervised and interpreted the echocardiogram and has reviewed and or edited and agrees with the written comments contained within the report. Procedure Note Vincenzo Stoddard MD - 06/13/2022 Patient name: Adelia Garvin Date of test: 06/13/2022 Type of test: TTE w/Doppler [facility] #: 0 Date of : 1970 (M) [facility] Manager: Elli Larsen RDCS Referring Physician: CATHERINE ADAMS MD Contrast Agent: 0.8 ml. Optison Admin., (2.2 ml Wasted) and NS Bubble Study Contrast Administered by: Floor RN Supervised/Interpreted by: Vincenzo Stoddard MD Diagnosis: Location: [facility] Reason for test: TTE with bubble MV [...] 2=Hypo 3=Akinetic 4=Dyskin./Aneurysm 0=Not visualized) Parasternal Long [place]:MAS=1 BAS=1 MIL=1 IVETH=1 Parasternal Short [place]:MAS=1 MIS=1 MS=1 MIL=1 MAL=1 MA=1 Apical 4 Chambers:=1 MIS=1 BIS=1 BAL=1 MAL=1 AL=1 AC=1 Apical 2 Chambers:AI=1 MS=1 BI=1 BA=1 MA=1 AA=1 AC=1 LV Global [...] MD By signing this report, the attending proof carrier certifies that he or she has personally supervised and interpreted the echocardiogram and has reviewed and or edited and agrees with the written comments contained within the report. us Catherine Adams MD CV ECHO PROCEDURES Final Re sult * (ABNORMAL) Manual Differential (06/13/2022 9:33 AM CDT) Differential Manual [facility] Cells Counted 115 [facility] Neutrophil abs 13.0(H) 1.7 - 6.5 K/cumm [facility] Imm gran abs 1.2(H) 0.0 - 0.1 K/cumm [facility] Lymphocyte abs 0.7(L) 0.8 - 3.3 K/cumm [facility] Monocyte abs 0.4 0.2 - 0.8 K/cumm [facility] Eosinophil abs 0.3 0.0 - 0.5 K/cumm [facility] Neutrophil pct 83.6 % [facility] Comment: Interpretive Data Percent cell count reference ranges are not reported, since discordance with absolute values may lead to misinterpretation of CBC data. Current Interpretive Data was last revised on 2017. Lymphocyte pct 4.3 % [facility] Comment: Interpretive Data Percent cell count reference ranges are not reported, since discordance with absolute values may lead to misinterpretation of CBC data. Current Interpretive Data was last revised on 2017. Monocyte pct 2.6 % [facility] Comment: Interpretive Data Percent cell count reference ranges are not reported, since discordance with absolute values may lead to misinterpretation of CBC data. Current Interpretive Data was last revised on 2017. Eosinophil pct 1.7 % [facility] Comment: Interpretive Data Percent cell count reference ranges are not reported, since discordance with absolute values may lead to misinterpretation of CBC data. Current Interpretive Data was last revised on 2017. Metamyelocyte pct 5.2 % [facility] Myelocyte pct 2.6 % [facility] Blood 06/13/2022 9:33 AM CDT 06/13/2022 10:10 AM CDT us Catherine Adams MD LAB BLOOD ORDERABLES Final Result [facility] Department [place] [address] * (ABNORMAL) eGFR (06/13/2022 9:33 AM CDT) eGFR 34(L) 90 - 130 mL/min/1. 73 m2 [facility] Comment: Interpretive Data Reference Interval [...] Adams MD LAB BLOOD ORDERABLES Final Result [facility] Department [place] [address] * (ABNORMAL) Magnesium (06/13/2022 9:33 AM CDT) Magnesium 2.8(H) 1.4 - 2.5 mg/dL [facility] Blood 06/13/2022 9:33 AM CDT 06/13/2022 10:06 AM CDT us Marcelina Lo PRODUCT MANAGEMENT SPECIALIST LAB BLOOD ORDERABLES Final Re sult [facility] Department [place] [address] * (ABNORMAL) Comprehensive metabolic panel (06/13/2022 9:33 AM CDT) Sodium 135 135 - 145 mmol/L [facility] Potassium, pl 5.6(H) 3.3 - 4.9 mmol/L [facility] Chloride 98 97 - 110 mmol/L [facility] CO2 26 22 - 32 mmol/L [facility] Anion gap 11 2 - 15 mmol/L [facility] BUN 19 8 - 25 mg/dL [facility] Creatinine 2.26(H) 0.80 - 1.30 mg/dL [facility] Glucose 217(H) 70 - 199 mg/dL [facility] Comment: Interpretive Data Fasting glucose [...] 2017. Calcium 8.7 8.5 - 10.3 mg/dL [facility] Bilirubin, total 0.7 0.1 - 1.2 mg/dL [facility] Protein, pl 6.5 6.5 - 8.5 g/dL [facility] Albumin 3.2(L) 3.5 - 5.0 g/dL [facility] Alk phos 300(H) 40 - 130 Units/L [facility] ALT 55 7 - 55 Units/L [facility] AST 90(H) 10 - 50 Units/L [facility] Blood 06/13/2022 9:33 AM CDT 06/13/2022 10:06 AM CDT us Marcelina Lo PRODUCT MANAGEMENT SPECIALIST LAB BLOOD ORDERABLES Final Re sult Performing Organization Address [facility] Co de Phone Number [facility] Department [place] [address] * (ABNORMAL) CBC with auto differential (06/13/2022 9:33 AM CDT) WBC 15.6(H) 3.8 - 9.9 K/cumm [facility] Hgb 7.7(L) 13.0 - 17.5 g/dL [facility] Hct 23.1(L) 38.9 - 50.3 % [facility] Plt 191 150 - 400 K/cumm [facility] MPV 10.9 9.1 - 12.3 fL [facility] RBC 2.45(L) 4.30 - 5.80 M/cumm [facility] MCV 94.3 81.3 - 96.4 fL [facility] MCH 31.4 27.1 - 33.3 pg [facility] MCHC 33.3 32.3 - 35.7 g/dL [facility] RDW CV 13.6 11.1 - 14.9 % [facility] RDW SD 46.7 35.7 - 48.1 fL [facility] NRBC abs 0.05(H) 0.00 - 0.01 K/cumm [facility] Blood 06/13/2022 9:33 AM CDT 06/13/2022 10:06 AM CDT us Marcelina Lo PRODUCT MANAGEMENT SPECIALIST LAB BLOOD ORDERABLES Final Re sult [facility] Department [place] [address] * (ABNORMAL) POCT glucose (06/13/2022 4:40 AM CDT) Glucose, POC 280(H) 70 - 199 mg/dL [facility] Blood 06/13/2022 4:40 AM CDT 06/13/2022 4:40 AM CDT Catherine Adams MD LAB POCT ORDERABLES - DEVIC E Final Result Performing Organization Address [facility] Co de Phone Number [facility] [place] [place] [address] * (ABNORMAL) Blood gas, arterial (06/13/2022 2:26 AM CDT) pH, Art 7.35 7.35 - 7.45 [facility] PCO2, Arterial 42 35 - 45 mmHg [facility] PO2, Arterial 78(L) 83 - 108 mmHg [facility] HCO3 Art (Calculated) 24 20 - 30 mmol/L [facility] BE, art -3 mmol/L [facility] Comment: Interpretive Data No Reference Range Established Current Interpretive Data was last revised on 2017 O2 Sat Art (Measured) 94 90 - 95 % [facility] Blood 06/13/2022 2:26 AM CDT 06/13/2022 2:58 AM CDT us Marcelina Lo PRODUCT MANAGEMENT SPECIALIST LAB BLOOD ORDERABLES Final Re sult Performing Organization Address [facility] Co de Phone Number [facility] Department [place] [address] * (ABNORMAL) Blood gas, arterial (06/13/2022 1:11 AM CDT) pH, Art 7.35 7.35 - 7.45 [facility] PCO2, Arterial 44 35 - 45 mmHg [facility] PO2, Arterial 72(L) 83 - 108 mmHg [facility] HCO3 Art (Calculated) 25 20 - 30 mmol/L [facility] BE, art -1 mmol/L [facility] Comment: Interpretive Data No Reference Range Established Current Interpretive Data was last revised on 2017 O2 Sat Art (Measured) 94 90 - 95 % [facility] Blood 06/13/2022 1:11 AM CDT 06/13/2022 1:30 AM CDT us Marcelina Lo PRODUCT MANAGEMENT SPECIALIST LAB BLOOD ORDERABLES Final Re sult Performing Organization Address City/[facility] Co de Phone Number [facility] [place] [place] [address] * Potassium, whole blood (06/13/2022 1:11 AM CDT) Potassium, bld 4.8 3.3 - 4.9 mmol/L [facility] Blood 06/13/2022 1:11 AM CDT 06/13/2022 1:30 AM CDT us Catherine Adams MD LAB BLOOD ORDERABLES Final Result Performing Organization Address [facility] Co de Phone Number [facility] Department [place] [address] * POCT glucose (06/12/2022 11:26 PM CDT) Glucose, POC 123 70 - 199 mg/dL [facility] Blood 06/12/2022 11:2 6 PM CDT 06/12/2022 11:26 PM CDT Catherine Adams MD LAB POCT ORDERABLES - DEVIC E Final Result Performing Organization Address City/[facility] Co de Phone Number [facility] [place] [address] * Lactate, whole blood (06/12/2022 8:55 PM CDT) Lactate, bld 1.2 0.7 - 2.0 mmol/L [facility] Blood 06/12/2022 8:55 PM CDT 06/12/2022 9:59 PM CDT us Jeffrey Green MD LAB BLOOD ORDERABLES Final Result Performing Organization Address [facility] Co de Phone Number [facility] Department [place] [address] * (ABNORMAL) eGFR (06/12/2022 8:47 PM CDT) eGFR 35(L) 90 - 130 mL/min/1. 73 m2 [facility] Comment: Interpretive Data Reference Interval [...] BLOOD ORDERABLES Final Result Performing Organization Address City/[facility] Co de Phone Number [facility] Department [place] [address] * (ABNORMAL) Differential, auto (06/12/2022 8:47 PM CDT) Neutrophil abs 9.5(H) 1.7 - 6.5 K/cumm [facility] Imm gran abs 1.9(H) 0.0 - 0.1 K/cumm [facility] Lymphocyte abs 1.8 0.8 - 3.3 K/cumm [facility] Monocyte abs 1.0(H) 0.2 - 0.8 K/cumm [facility] Eosinophil abs 0.3 0.0 - 0.5 K/cumm [facility] Basophil abs 0.0 0.0 - 0.1 K/cumm [facility] Neutrophil pct 65.3 % [facility] Comment: Confirmed by smear review Interpretive Data Percent cell count reference ranges are not reported, since discordance with absolute values may lead to misinterpretation of CBC data. Current Interpretive Data was last revised on 2017. Imm gran pct 13.1 % [facility] Comment: Interpretive Data Percent cell count reference ranges are not reported, since discordance with absolute values may lead to misinterpretation of CBC data. Current Interpretive Data was last revised on 2017. Lymphocyte pct 12.0 % [facility] Comment: Interpretive Data Percent cell count reference ranges are not reported, since discordance with absolute values may lead to misinterpretation of CBC data. Current Interpretive Data was last revised on 2017. Monocyte pct 7.0 % [facility] Comment: Interpretive Data Percent cell count reference ranges are not reported, since discordance with absolute values may lead to misinterpretation of CBC data. Current Interpretive Data was last revised on 2017. Eosinophil pct 2.3 % [facility] Comment: Interpretive Data Percent [...] BLOOD ORDERABLES Final Result Performing Organization Address City/[facility]/ZIP Co de Phone Number [facility] [place] [address] * (ABNORMAL) Magnesium (06/12/2022 8:47 PM CDT) Pathologist [facility] Magnesium 2.7(H) 1.4 - 2.5 mg/dL [facility] Blood 06/12/2022 8:47 PM CDT 06/12/2022 10:04 PM CDT Catherine Adams MD LAB BLOOD ORDERABLES Final Result Performing Organization Address [facility] de Phone Number [facility] Department [place] [address] * (ABNORMAL) Comprehensive metabolic panel (06/12/2022 8:47 PM CDT) Pathologist [facility] Sodium 134(L) 135 - 145 mmol/L [facility] Potassium, pl 5.1(H) 3.3 - 4.9 mmol/L [facility] Comment:Hemolyzed; Potassium value may be falsely elevated by as much as 0.6-1.0 mmol/L. Suggest redraw and reanalysis. Chloride 101 97 - 110 mmol/L [facility] CO2 24 22 - 32 mmol/L [facility] Anion gap 9 2 - 15 mmol/L [facility] BUN 19 8 - 25 mg/dL [facility] Creatinine 2.22(H) 0.80 - 1.30 mg/dL [facility] Glucose 101 70 - 199 mg/dL [facility] Comment: Interpretive Data Fasting glucose [...] 2017. Calcium 8.7 8.5 - 10.3 mg/dL [facility] Bilirubin, total 0.8 0.1 - 1.2 mg/dL [facility] Protein, pl 6.5 6.5 - 8.5 g/dL [facility] Albumin 2.7(L) 3.5 - 5.0 g/dL [facility] Alk phos 300(H) 40 - 130 Units/L [facility] ALT 57(H) 7 - 55 Units/L [facility] AST 110(H) 10 - 50 Units/L [facility] Comment:Hemolyzed; result ma y be falsely elevated Blood 06/12/2022 8:47 PM CDT 06/12/2022 10:04 PM CDT Catherine Adams MD LAB BLOOD ORDERABLES Final Result [facility] Department [place] [address] * (ABNORMAL) Blood gas, arterial (06/12/2022 8:47 PM CDT) pH, Art 7.36 7.35 - 7.45 [facility] PCO2, Arterial 47(H) 35 - 45 mmHg [facility] PO2, Arterial 84 83 - 108 mmHg [facility] HCO3 Art (Calculated) 27 20 - 30 mmol/L [facility] BE, art 1 mmol/L [facility] Comment: Interpretive Data No Reference Range Established Current Interpretive Data was last revised on 2017 O2 Sat Art (Measured) 96(H) 90 - 95 % [facility] Blood 06/12/2022 8:47 PM CDT 06/12/2022 9:59 PM CDT Marcelina Lo NP LAB BLOOD ORDERABLES Final Re sult Performing Organization Address [facility] de Phone Number [facility] [place] [address] * (ABNORMAL) aPTT (06/12/2022 8:47 PM CDT) aPTT 78(H) 27 - 37 sec [facility] Comment: Interpretive Data Therapeutic heparin range: 60.0 - 94.0 seconds. Based on correlation with therapeutic heparin activity range of 0.3-0.7 Units/mL. Current interpretive data was last revised on 2020. Blood 06/12/2022 8:47 PM CDT 06/12/2022 10:12 PM CDT Narrative [facility] - 06/12/2022 10:40 PM CDT Check aPTT 6 hours after the start of Heparin infusion and 6 hours after any change in Heparin rate. (Target aPTT 61-80 seconds). Call Nephrology if outside range. Catherine Adams MD LAB BLOOD ORDERABLES Final Result Performing Organization Address [facility] de Phone Number [facility] Department [place] [address] * (ABNORMAL) Triglycerides (06/12/2022 8:47 PM CDT) Triglycerides 248(H) <=149 mg/dL [facility] Comment: Interpretive Data Ages < [...] PM CDT 06/12/2022 10:04 PM CDT Narrative [facility] - 06/12/2022 10:44 PM CDT While on propofol infusion. Catherine Adams MD LAB BLOOD ORDERABLES Final Result Performing Organization Address [facility] Co de Phone Number [facility] Department [place] [address] * Phosphorus (06/12/2022 8:47 PM CDT) Phosphorus, pl 3.5 2.3 - 4.5 mg/dL [facility] [facility] Blood 06/12/2022 8:47 PM CDT 06/12/2022 10:04 PM CDT us Marcelina Lo NP LAB BLOOD ORDERABLES Final Re sult Performing Organization Address City/[facility] Co de Phone Number [facility] Department [place] [address] * Beta-hydroxybutyrate (06/12/2022 8:47 PM CDT) Beta-Hydroxybut yrate 0.2 0.0 - 0.5 mmol/L [facility] Blood 06/12/2022 8:47 PM CDT 06/12/2022 10:00 PM CDT us Marcelina Lo PRODUCT MANAGEMENT SPECIALIST LAB BLOOD ORDERABLES Edited R esult - Final [facility] [place] [address] * Lipase (06/12/2022 8:47 PM CDT) Pathologist [facility] Lipase 16 10 - 99 Units/L [facility] Blood 06/12/2022 8:47 PM CDT 06/12/2022 10:04 PM CDT Marcelina Lo PRODUCT MANAGEMENT SPECIALIST LAB BLOOD ORDERABLES Final Re sult Performing Organization Address [facility]/ZIP Co de Phone Number [facility] [place] [address] * (ABNORMAL) CBC with auto differential (06/12/2022 8:47 PM CDT) [facility] WBC 14.6(H) 3.8 - 9.9 K/cumm [facility] Hgb 8.1(L) 13.0 - 17.5 g/dL [facility] Hct 24.7(L) 38.9 - 50.3 % [facility] Plt 207 150 - 400 K/cumm [facility] MPV 11.0 9.1 - 12.3 fL [facility] RBC 2.61(L) 4.30 - 5.80 M/cumm [facility] MCV 94.6 81.3 - 96.4 fL [facility] MCH 31.0 27.1 - 33.3 pg [facility] MCHC 32.8 32.3 - 35.7 g/dL [facility] RDW CV 13.4 11.1 - 14.9 % [facility] RDW SD 45.9 35.7 - 48.1 fL [facility] NRBC abs 0.03(H) 0.00 - 0.01 K/cumm [facility] Blood 06/12/2022 8:47 PM CDT 06/12/2022 10:10 PM CDT us Marcelina Lo PRODUCT MANAGEMENT SPECIALIST LAB BLOOD ORDERABLES Final Re sult Performing Organization Address [facility] Co de Phone Number [facility] [place] [address] * POCT glucose (06/12/2022 8:44 PM CDT) Glucose, POC 99 70 - 199 mg/dL [facility] Blood 06/12/2022 8:44 PM CDT 06/12/2022 8:44 PM CDT Catherine Adams MD LAB POCT ORDERABLES - DEVIC E Final Result Performing Organization Address [facility] Co de Phone Number [facility] [place] [place] [address] * POCT glucose (06/12/2022 4:01 PM CDT) Glucose, POC 110 70 - 199 mg/dL [facility] Blood 06/12/2022 4:01 PM CDT 06/12/2022 4:01 PM CDT Catherine Adams MD LAB POCT ORDERABLES - DEVIC E Final Result Performing Organization Address [facility] Co de Phone Number [facility] Department [place] [address] * (ABNORMAL) aPTT (06/12/2022 4:01 PM CDT) aPTT 75(H) 27 - 37 sec [facility] Comment: Interpretive Data Therapeutic heparin range: 60.0 - 94.0 seconds. Based on correlation with therapeutic heparin activity range of 0.3-0.7 Units/mL. Current interpretive data was last revised on 2020. Blood 06/12/2022 4:01 PM CDT 06/12/2022 4:27 PM CDT Narrative [facility] - 06/12/2022 4:48 PM CDT Check aPTT 6 hours after the start of Heparin infusion and 6 hours after any change in Heparin rate. (Target aPTT 61-80 seconds). Call Nephrology if outside range. Catherine Adams MD LAB BLOOD ORDERABLES Final Result Performing Organization Address [facility] de Phone Number [facility] [place] [address] * Blood gas, arterial (06/12/2022 4:01 PM CDT) pH, Art 7.42 7.35 - 7.45 [facility] PCO2, Arterial 41 35 - 45 mmHg [facility] PO2, Arterial 94 83 - 108 mmHg [facility] HCO3 Art (Calculated) 27 20 - 30 mmol/L [facility] BE, art 2 mmol/L [facility] Comment: Interpretive Data No Reference Range Established Current Interpretive Data was last revised on 2017 Blood 06/12/2022 4:01 PM CDT 06/12/2022 4:16 PM CDT Marcelina Lo NP LAB BLOOD ORDERABLES Final Re sult Performing Organization Address [facility] de Phone Number [facility] [place] [address] * Aerobic culture and gram stain Tracheal aspirate Tracheal (06/12/2022 2:31 PM CDT) Direct Specimen Exam Stain: Rare polymorphonuclear leukocytes seen. Few squamous epithelial cells seen. Rare mixed bacterial stone seen on Gram stain. [facility] Report Final Report: Insignificant growth based on current clinical standards. [facility] Tracheal aspirate (Tracheal) 06/12/2022 2:31 PM CDT 06/12/2022 3:47 PM CDT Narrative [facility] - 06/14/2022 11:49 AM CDT Testing performed by [facility] ([phone]) Specimens submitted from normally sterile body sites will have all bacterial morphotypes identified. ??Specimens that contain grossly mixed stone and/or are from body sites that are not normally sterile will be examined for Staphylococcus aureus, Pseudomonas aeruginosa, beta-hemolytic strep, vancomycin-resistant Enterococcus and fungus. ??If any of these are isolated, the organism will be reported. Current interpretive data was last revised on 2017. us Catherine Adams MD LAB MICROBIOLOGY - GENERAL ORDERABLES Final Result [facility] Department [place] [address] * XR Chest 1 View (06/12/2022 1:10 [...] it. Electronically signed by: Ramirez Blake M.D. us Catherine Adams MD IMG XR PROCEDURES Final Res ult * (ABNORMAL) Blood gas, arterial (06/12/2022 12:56 PM CDT) pH, Art 7.41 7.35 - 7.45 [facility] PCO2, Arterial 38 35 - 45 mmHg [facility] PO2, Arterial 135(H) 83 - 108 mmHg [facility] HCO3 Art (Calculated) 25 20 - 30 mmol/L [facility] BE, art 0 mmol/L [facility] Comment: Interpretive Data No Reference Range Established Current Interpretive Data was last revised on 2017 O2 Sat Art (Measured) 97(H) 90 - 95 % [facility] Blood 06/12/2022 12:5 6 PM CDT 06/12/2022 1:02 PM CDT us Marcelina Lo PRODUCT MANAGEMENT SPECIALIST LAB BLOOD ORDERABLES Final Re sult [facility] Department [place] [address] * (ABNORMAL) Blood gas, arterial (06/12/2022 11:37 AM CDT) pH, Art 7.41 7.35 - 7.45 [facility] PCO2, Arterial 40 35 - 45 mmHg [facility] PO2, Arterial 82(L) 83 - 108 mmHg [facility] HCO3 Art (Calculated) 26 20 - 30 mmol/L [facility] BE, art 0 mmol/L [facility] Comment: Interpretive Data No Reference Range Established Current Interpretive Data was last revised on 2017 O2 Sat Art (Measured) 96(H) 90 - 95 % [facility] Blood 06/12/2022 11:3 7 AM CDT 06/12/2022 11:43 AM CDT Marcelina Lo PRODUCT MANAGEMENT SPECIALIST LAB BLOOD ORDERABLES Final Re sult Performing Organization Address [facility] de Phone Number [facility] Department [place] [address] * POCT glucose (06/12/2022 11:36 AM CDT) Glucose, POC 161 70 - 199 mg/dL [facility] Blood 06/12/2022 11:3 6 AM CDT 06/12/2022 11:36 AM CDT Catherine Adams MD LAB POCT ORDERABLES - DEVIC E Final Result Performing Organization Address [facility] de Phone Number [facility] [place] [place] [address] * (ABNORMAL) Blood gas, arterial (06/12/2022 9:53 AM CDT) pH, Art 7.42 7.35 - 7.45 [facility] PCO2, Arterial 36 35 - 45 mmHg [facility] PO2, Arterial 106 83 - 108 mmHg [facility] HCO3 Art (Calculated) 25 20 - 30 mmol/L [facility] BE, art 0 mmol/L [facility] Comment: Interpretive Data No Reference Range Established Current Interpretive Data was last revised on 2017 O2 Sat Art (Measured) 98(H) 90 - 95 % [facility] Blood 06/12/2022 9:53 AM CDT 06/12/2022 10:02 AM CDT Marcelina Lo PRODUCT MANAGEMENT SPECIALIST LAB BLOOD ORDERABLES Final Re sult [facility] Department [place] [address] * (ABNORMAL) Manual Differential (06/12/2022 8:02 AM CDT) Differential Manual [facility] Cells Counted 116 [facility] Neutrophil abs 9.1(H) 1.7 - 6.5 K/cumm [facility] Imm gran abs 0.8(H) 0.0 - 0.1 K/cumm [facility] Lymphocyte abs 1.9 0.8 - 3.3 K/cumm [facility] Monocyte abs 0.3 0.2 - 0.8 K/cumm [facility] Eosinophil abs 0.4 0.0 - 0.5 K/cumm [facility] Neutrophil pct 72.5 % [facility] Comment: Interpretive Data Percent cell count reference ranges are not reported, since discordance with absolute values may lead to misinterpretation of CBC data. Current Interpretive Data was last revised on 2017. Lymphocyte pct 15.5 % [facility] Comment: Interpretive Data Percent cell count reference ranges are not reported, since discordance with absolute values may lead to misinterpretation of CBC data. Current Interpretive Data was last revised on 2017. Monocyte pct 2.6 % [facility] Comment: Interpretive Data Percent cell count reference ranges are not reported, since discordance with absolute values may lead to misinterpretation of CBC data. Current Interpretive Data was last revised on 2017. Eosinophil pct 3.4 % [facility] Comment: Interpretive Data Percent cell count reference ranges are not reported, since discordance with absolute values may lead to misinterpretation of CBC data. Current Interpretive Data was last revised on 2017. Metamyelocyte pct 2.6 % [facility] Myelocyte pct 3.4 % [facility] Blood 06/12/2022 8:02 AM CDT 06/12/2022 8:32 AM CDT Catherine Adams MD LAB BLOOD ORDERABLES Final Result [facility] Department [place] [address] * (ABNORMAL) eGFR (06/12/2022 8:02 AM CDT) Pathologist [facility] eGFR 31(L) 90 - 130 mL/min/1. 73 m2 [facility] Comment: Interpretive Data Reference Interval Normal ?>/= [...] BLOOD ORDERABLES Final Result [facility] Department [place] [address] * (ABNORMAL) aPTT (06/12/2022 8:02 AM CDT) [facility] aPTT 70(H) 27 - 37 sec [facility] Comment: Interpretive Data Therapeutic heparin range: 60.0 - 94.0 seconds. Based on correlation with therapeutic heparin activity range of 0.3-0.7 Units/mL. Current interpretive data was last revised on 2020. Blood 06/12/2022 8:02 AM CDT 06/12/2022 8:15 AM CDT Narrative [facility] - 06/12/2022 8:43 AM CDT Check aPTT 6 hours after the start of Heparin infusion and 6 hours after any change in Heparin rate. (Target aPTT 61-80 seconds). Call Nephrology if outside range. us Catherine Adams MD LAB BLOOD ORDERABLES Final Result Performing Organization Address [facility] de Phone Number [facility] [place] [address] * (ABNORMAL) Blood gas, arterial (06/12/2022 8:02 AM CDT) pH, Art 7.47(H) 7.35 - 7.45 [facility] PCO2, Arterial 34(L) 35 - 45 mmHg [facility] PO2, Arterial 71(L) 83 - 108 mmHg [facility] HCO3 Art (Calculated) 25 20 - 30 mmol/L [facility] BE, art 1 mmol/L [facility] Comment: Interpretive Data No Reference Range Established Current Interpretive Data was last revised on 2017 O2 Sat Art (Measured) 95 90 - 95 % [facility] Blood 06/12/2022 8:02 AM CDT 06/12/2022 8:13 AM CDT us Marcelina Lo NP LAB BLOOD ORDERABLES Final Re sult Performing Organization Address [facility] Co de Phone Number [facility] [place] [place] [address] * Magnesium (06/12/2022 8:02 AM CDT) Magnesium 2.5 1.4 - 2.5 mg/dL [facility] Blood 06/12/2022 8:02 AM CDT 06/12/2022 8:28 AM CDT us Marcelina Lo PRODUCT MANAGEMENT SPECIALIST LAB BLOOD ORDERABLES Final Re sult [facility] Department [place] [address] * (ABNORMAL) Comprehensive metabolic panel (06/12/2022 8:02 AM CDT) Pathologist [facility] Sodium 135 135 - 145 mmol/L [facility] Potassium, pl 4.4 3.3 - 4.9 mmol/L [facility] Chloride 101 97 - 110 mmol/L [facility] CO2 26 22 - 32 mmol/L [facility] Anion gap 8 2 - 15 mmol/L [facility] BUN 23 8 - 25 mg/dL [facility] Creatinine 2.45(H) 0.80 - 1.30 mg/dL [facility] Glucose 157 70 - 199 mg/dL [facility] Comment: Interpretive Data Fasting glucose [...] 2017. Calcium 8.4(L) 8.5 - 10.3 mg/dL [facility] Bilirubin, total 0.7 0.1 - 1.2 mg/dL [facility] Protein, pl 5.8(L) 6.5 - 8.5 g/dL [facility] Albumin 2.6(L) 3.5 - 5.0 g/dL [facility] Alk phos 248(H) 40 - 130 Units/L [facility] ALT 49 7 - 55 Units/L [facility] AST 95(H) 10 - 50 Units/L [facility] Blood 06/12/2022 8:02 AM CDT 06/12/2022 8:28 AM CDT Marcelina Lo PRODUCT MANAGEMENT SPECIALIST LAB BLOOD ORDERABLES Final Re sult Performing Organization Address City/[facility]/ZIP Co de Phone Number [facility] [place] [address] * (ABNORMAL) CBC with auto differential (06/12/2022 8:02 AM CDT) WBC 12.5(H) 3.8 - 9.9 K/cumm [facility] Hgb 7.5(L) 13.0 - 17.5 g/dL [facility] Hct 22.3(L) 38.9 - 50.3 % [facility] Plt 174 150 - 400 K/cumm [facility] MPV 11.0 9.1 - 12.3 fL [facility] RBC 2.36(L) 4.30 - 5.80 M/cumm [facility] MCV 94.5 81.3 - 96.4 fL [facility] MCH 31.8 27.1 - 33.3 pg [facility] MCHC 33.6 32.3 - 35.7 g/dL [facility] RDW CV 13.5 11.1 - 14.9 % [facility] RDW SD 45.5 35.7 - 48.1 fL [facility] NRBC abs 0.02(H) 0.00 - 0.01 K/cumm [facility] Blood 06/12/2022 8:02 AM CDT 06/12/2022 8:27 AM CDT Marcelina Lo PRODUCT MANAGEMENT SPECIALIST LAB BLOOD ORDERABLES Final Re sult [facility] [place] [address] * POCT glucose (06/12/2022 8:01 AM CDT) Glucose, POC 143 70 - 199 mg/dL [facility] Blood 06/12/2022 8:01 AM CDT 06/12/2022 8:01 AM CDT us Catherine Adams MD LAB POCT ORDERABLES - DEVIC E Final Result Performing Organization Address [facility] de Phone Number [facility] Department [place] [address] * (ABNORMAL) Blood gas, arterial (06/12/2022 6:21 AM CDT) pH, Art 7.41 7.35 - 7.45 [facility] PCO2, Arterial 40 35 - 45 mmHg [facility] PO2, Arterial 86 83 - 108 mmHg [facility] HCO3 Art (Calculated) 26 20 - 30 mmol/L [facility] BE, art 1 mmol/L [facility] Comment: Interpretive Data No Reference Range Established Current Interpretive Data was last revised on 2017 O2 Sat Art (Measured) 96(H) 90 - 95 % [facility] Blood 06/12/2022 6:21 AM CDT 06/12/2022 6:29 AM CDT Result [facility] us Catherine Adams MD LAB BLOOD ORDERABLES Final Result Performing Organization Address [facility] de Phone Number [facility] Department [place] [address] * POCT glucose (06/12/2022 4:57 AM CDT) Glucose, POC 163 70 - 199 mg/dL [facility] Blood 06/12/2022 4:57 AM CDT 06/12/2022 4:57 AM CDT us Catherine Adams MD LAB POCT ORDERABLES - DEVIC E Final Result Performing Organization Address [facility] [place] [address] * (ABNORMAL) aPTT (06/12/2022 1:52 AM CDT) aPTT 52(H) 27 - 37 sec [facility] Comment: Interpretive Data Therapeutic heparin range: 60.0 - 94.0 seconds. Based on correlation with therapeutic heparin activity range of 0.3-0.7 Units/mL. Current interpretive data was last revised on 2020. Blood 06/12/2022 1:52 AM CDT 06/12/2022 2:15 AM CDT Narrative [facility] - 06/12/2022 2:39 AM CDT Check aPTT 6 hours after the start of Heparin infusion and 6 hours after any change in Heparin rate. (Target aPTT 61-80 seconds). Call Nephrology if outside range. Catherine Adams MD LAB BLOOD ORDERABLES Final Result Performing Organization Address [facility] [place] [address] * (ABNORMAL) POCT glucose (06/11/2022 11:32 PM CDT) Glucose, POC 206(H) 70 - 199 mg/dL [facility] Blood 06/11/2022 11:3 2 PM CDT 06/11/2022 11:32 PM CDT Catherine Adams MD LAB POCT ORDERABLES - DEVIC E Final Result Performing Organization Address [facility] Co de Phone Number [facility] [place] [place] [address] * (ABNORMAL) Manual Differential (06/11/2022 11:25 PM CDT) Differential Manual [facility] Cells Counted 119 [facility] Neutrophil abs 10.8(H) 1.7 - 6.5 K/cumm [facility] Imm gran abs 0.6(H) 0.0 - 0.1 K/cumm [facility] Lymphocyte abs 1.4 0.8 - 3.3 K/cumm [facility] Monocyte abs 0.6 0.2 - 0.8 K/cumm [facility] Eosinophil abs 0.2 0.0 - 0.5 K/cumm [facility] Neutrophil pct 79.9 % [facility] Comment: Interpretive Data Percent cell count reference ranges are not reported, since discordance with absolute values may lead to misinterpretation of CBC data. Current Interpretive Data was last revised on 2017. Lymphocyte pct 10.1 % [facility] Comment: Interpretive Data Percent cell count reference ranges are not reported, since discordance with absolute values may lead to misinterpretation of CBC data. Current Interpretive Data was last revised on 2017. Monocyte pct 4.2 % [facility] Comment: Interpretive Data Percent cell count reference ranges are not reported, since discordance with absolute values may lead to misinterpretation of CBC data. Current Interpretive Data was last revised on 2017. Eosinophil pct 1.7 % [facility] Comment: Interpretive Data Percent cell count reference ranges are not reported, since discordance with absolute values may lead to misinterpretation of CBC data. Current Interpretive Data was last revised on 2017. Metamyelocyte pct 0.8 % [facility] Myelocyte pct 2.5 % [facility] Promyelocyte pct 0.8 % [facility] Blood 06/11/2022 11:2 5 PM CDT 06/11/2022 11:39 PM CDT us Jeffrey Green MD LAB BLOOD ORDERABLES Final Result [facility] Department [place] [address] * (ABNORMAL) CBC with auto differential (06/11/2022 11:25 PM CDT) Pathologist [facility] WBC 13.5(H) 3.8 - 9.9 K/cumm [facility] Hgb 7.9(L) 13.0 - 17.5 g/dL [facility] Hct 23.7(L) 38.9 - 50.3 % [facility] Plt 188 150 - 400 K/cumm [facility] MPV 10.7 9.1 - 12.3 fL [facility] RBC 2.55(L) 4.30 - 5.80 M/cumm [facility] MCV 92.9 81.3 - 96.4 fL [facility] MCH 31.0 27.1 - 33.3 pg [facility] MCHC 33.3 32.3 - 35.7 g/dL [facility] RDW CV 13.3 11.1 - 14.9 % [facility] RDW SD 45.1 35.7 - 48.1 fL [facility] NRBC abs 0.02(H) 0.00 - 0.01 K/cumm [facility] Blood 06/11/2022 11:2 5 PM CDT 06/11/2022 11:35 PM CDT Jeffrey Green MD LAB BLOOD ORDERABLES Final Result [facility] Department [place] [address] * (ABNORMAL) Blood gas, arterial (06/11/2022 11:25 PM CDT) [facility] pH, Art 7.37 7.35 - 7.45 [facility] PCO2, Arterial 41 35 - 45 mmHg [facility] PO2, Arterial 91 83 - 108 mmHg [facility] HCO3 Art (Calculated) 24 20 - 30 mmol/L [facility] BE, art -1 mmol/L [facility] Comment: Interpretive Data No Reference Range Established Current Interpretive Data was last revised on 2017 O2 Sat Art (Measured) 97(H) 90 - 95 % [facility] Blood 06/11/2022 11:2 5 PM CDT 06/11/2022 11:31 PM CDT Marcelina Lo PRODUCT MANAGEMENT SPECIALIST LAB BLOOD ORDERABLES Final Re sult Performing Organization Address [facility] Co de Phone Number [facility] [place] [place] [address] * (ABNORMAL) Blood gas, arterial (06/11/2022 8:17 PM CDT) pH, Art 7.38 7.35 - 7.45 [facility] PCO2, Arterial 39 35 - 45 mmHg [facility] PO2, Arterial 111(H) 83 - 108 mmHg [facility] HCO3 Art (Calculated) 23 20 - 30 mmol/L [facility] BE, art -2 mmol/L [facility] Comment: Interpretive Data No Reference Range Established Current Interpretive Data was last revised on 2017 O2 Sat Art (Measured) 98(H) 90 - 95 % [facility] Blood 06/11/2022 8:17 PM CDT 06/11/2022 8:23 PM CDT Marcelina Lo PRODUCT MANAGEMENT SPECIALIST LAB BLOOD ORDERABLES Final Re sult Performing Organization Address [facility] [place] [address] * Lactate, whole blood (06/11/2022 8:17 PM CDT) Pathologist [facility] Lactate, bld 0.8 0.7 - 2.0 mmol/L [facility] Blood 06/11/2022 8:17 PM CDT 06/11/2022 8:23 PM CDT Marcelina Lo PRODUCT MANAGEMENT SPECIALIST LAB BLOOD ORDERABLES Final Re sult Performing Organization Address [facility] Co de Phone Number [facility] [place] [address] * (ABNORMAL) eGFR (06/11/2022 8:12 PM CDT) eGFR 24(L) 90 - 130 mL/min/1. 73 m2 [facility] Comment: Interpretive Data Reference Interval [...] 8:12 PM CDT 06/11/2022 8:26 PM CDT us Catherine Adams MD LAB BLOOD ORDERABLES Final Result [facility] [place] [address] * Magnesium (06/11/2022 8:12 PM CDT) Magnesium 2.5 1.4 - 2.5 mg/dL [facility] Blood 06/11/2022 8:12 PM CDT 06/11/2022 8:23 PM CDT us Catherine Adams MD LAB BLOOD ORDERABLES Final Result [facility] Department [place] [address] * (ABNORMAL) Comprehensive metabolic panel (06/11/2022 8:12 PM CDT) Pathologist [facility] Sodium 135 135 - 145 mmol/L [facility] Potassium, pl 4.7 3.3 - 4.9 mmol/L [facility] Chloride 101 97 - 110 mmol/L [facility] CO2 23 22 - 32 mmol/L [facility] Anion gap 11 2 - 15 mmol/L [facility] BUN 28(H) 8 - 25 mg/dL [facility] Creatinine 3.01(H) 0.80 - 1.30 mg/dL [facility] Glucose 185 70 - 199 mg/dL [facility] Comment: Interpretive Data Fasting glucose [...] 2017. Calcium 8.1(L) 8.5 - 10.3 mg/dL [facility] Bilirubin, total 0.9 0.1 - 1.2 mg/dL [facility] Protein, pl 5.5(L) 6.5 - 8.5 g/dL [facility] Albumin 2.3(L) 3.5 - 5.0 g/dL [facility] Alk phos 211(H) 40 - 130 Units/L [facility] ALT 45 7 - 55 Units/L [facility] AST 95(H) 10 - 50 Units/L [facility] Blood 06/11/2022 8:12 PM CDT 06/11/2022 8:23 PM CDT Catherine Adams MD LAB BLOOD ORDERABLES Final Result Performing Organization Address [facility] de Phone Number [facility] Department [place] [address] * (ABNORMAL) Triglycerides (06/11/2022 8:12 PM CDT) Triglycerides 345(H) <=149 mg/dL [facility] Comment: Interpretive Data Ages < [...] PM CDT 06/11/2022 8:23 PM CDT Narrative [facility] - 06/11/2022 8:53 PM CDT While on propofol infusion. Catherine Adams MD LAB BLOOD ORDERABLES Final Result Performing Organization Address City/[facility] de Phone Number [facility] Department [place] [address] * Phosphorus (06/11/2022 8:12 PM CDT) Phosphorus, pl 4.4 2.3 - 4.5 mg/dL [facility] Blood 06/11/2022 8:12 PM CDT 06/11/2022 8:23 PM CDT Marcelina Lo PRODUCT MANAGEMENT SPECIALIST LAB BLOOD ORDERABLES Final Re sult Performing Organization Address City/[facility]/[place] [address] * Beta-hydroxybutyrate (06/11/2022 8:12 PM CDT) [facility] Beta-Hydroxybut yrate 0.3 0.0 - 0.5 mmol/L [facility] Blood 06/11/2022 8:12 PM CDT 06/11/2022 8:23 PM CDT Marcelina Lo PRODUCT MANAGEMENT SPECIALIST LAB BLOOD ORDERABLES Edited R esult - Final Performing Organization Address [facility] [place] [address] * Lipase (06/11/2022 8:12 PM CDT) Pathologist [facility] Lipase 15 10 - 99 Units/L [facility] Blood 06/11/2022 8:12 PM CDT 06/11/2022 8:23 PM CDT Marcelina Lo PRODUCT MANAGEMENT SPECIALIST LAB BLOOD ORDERABLES Final Re sult Performing Organization Address [facility] Co de Phone Number [facility] [place] [address] * POCT glucose (06/11/2022 8:07 PM CDT) Glucose, POC 169 70 - 199 mg/dL [facility] Blood 06/11/2022 8:07 PM CDT 06/11/2022 8:07 PM CDT Catherine Adams MD LAB POCT ORDERABLES - DEVIC E Final Result [facility] Department [place] [address] * XR Chest 1 View (06/11/2022 4:07 PM CDT) Anatomical Region Laterality Modality Body, Chest N/A Computed Radiogr aphy 06/11/2022 5:24 PM CDT Impressions 06/11/2022 5:24 PM CDT Comparison made to examination of 06/11/2022 at 0543 hours Tip of the endotracheal tube projects approximately 5.5 cm above the boni. ??Nasogastric tube extends below the diaphragm with the tip excluded from the [id number]. ??Left internal jugular catheter projects at superior [...] diaphragm with the tip excluded from the [id number]. Left internal jugular catheter projects at superior [...] Potassium, bld 4.5 3.3 - 4.9 mmol/L [facility] Blood 06/11/2022 3:21 PM CDT 06/11/2022 3:29 PM CDT Marcelina Lo PRODUCT MANAGEMENT SPECIALIST LAB BLOOD ORDERABLES Final Re sult [facility] Department [place] [address] * Lactate, whole blood (06/11/2022 3:21 PM CDT) Pathologist [facility] Lactate, bld 0.9 0.7 - 2.0 mmol/L [facility] Blood 06/11/2022 3:21 PM CDT 06/11/2022 3:29 PM CDT Marcelina Lo PRODUCT MANAGEMENT SPECIALIST LAB BLOOD ORDERABLES Final Re sult Performing Organization Address City/[facility]/ZIP Co de Phone Number [facility] [place] [address] * (ABNORMAL) Blood gas, arterial (06/11/2022 3:21 PM CDT) pH, Art 7.39 7.35 - 7.45 [facility] PCO2, Arterial 39 35 - 45 mmHg [facility] PO2, Arterial 92 83 - 108 mmHg [facility] HCO3 Art (Calculated) 24 20 - 30 mmol/L [facility] BE, art -1 mmol/L [facility] Comment: Interpretive Data No Reference Range Established Current Interpretive Data was last revised on 2017 O2 Sat Art (Measured) 96(H) 90 - 95 % [facility] Blood 06/11/2022 3:21 PM CDT 06/11/2022 3:29 PM CDT Marcelina Lo NP LAB BLOOD ORDERABLES Final Re sult Performing Organization Address [facility] de Phone Number [facility] [place] [address] * aPTT (06/11/2022 3:21 PM CDT) aPTT 30 27 - 37 sec [facility] Comment: Interpretive Data Therapeutic heparin range: 60.0 - 94.0 seconds. Based on correlation with therapeutic heparin activity range of 0.3-0.7 Units/mL. Current interpretive data was last revised on 2020. Blood 06/11/2022 3:21 PM CDT 06/11/2022 3:30 PM CDT Catherine Adams MD LAB BLOOD ORDERABLES Final Result Performing Organization Address [facility] de Phone Number [facility] [place] [address] * Protime-INR (06/11/2022 3:21 PM CDT) PT 10.7 9.2 - 13.5 sec [facility] INR 1.0 0.9 - 1.2 [facility] Comment: Interpretive data Oral anticoagulant therapeutic ranges: Venous thromboembolism prophylaxis or treatment: 2.0-3.0 CARDIOLOGY Standard range: 2.0-3.0 High-intensity range: 2.5-3.5 Refer to indication-specific guidelines for appropriate target ranges for prosthetic heart valve replacement. Current interpretive data was last revised on 2019. Blood 06/11/2022 3:21 PM CDT 06/11/2022 3:30 PM CDT Catherine Adams MD LAB BLOOD ORDERABLES Final Result Performing Organization Address City/[facility] Co de Phone Number [facility] Department [place] [address] * (ABNORMAL) CBC without differential (06/11/2022 3:21 PM CDT) WBC 10.7(H) 3.8 - 9.9 K/cumm [facility] Hgb 7.6(L) 13.0 - 17.5 g/dL [facility] Hct 22.8(L) 38.9 - 50.3 % [facility] Plt 175 150 - 400 K/cumm [facility] MPV 10.7 9.1 - 12.3 fL [facility] RBC 2.45(L) 4.30 - 5.80 M/cumm [facility] MCV 93.1 81.3 - 96.4 fL [facility] MCH 31.0 27.1 - 33.3 pg [facility] MCHC 33.3 32.3 - 35.7 g/dL [facility] RDW CV 13.1 11.1 - 14.9 % [facility] RDW SD 44.3 35.7 - 48.1 fL [facility] NRBC abs 0.02(H) 0.00 - 0.01 K/cumm [facility] Blood 06/11/2022 3:21 PM CDT 06/11/2022 3:30 PM CDT Catherine Adams MD LAB BLOOD ORDERABLES Final Result [facility] Department [place] [address] * POCT glucose (06/11/2022 3:20 PM CDT) Glucose, POC 130 70 - 199 mg/dL [facility] Blood 06/11/2022 3:20 PM CDT 06/11/2022 3:20 PM CDT Catherine Adams MD LAB POCT ORDERABLES - DEVIC E Final Result [facility] Department [place] [address] * CT Chest Abdomen Pelvis WO Contrast [...] Electronically signed by: Maria Teresa Rivera M.D. Catherine Adams MD IMG CT PROCEDURES Final Res ult * (ABNORMAL) Blood gas, arterial (06/11/2022 12:11 PM CDT) pH, Art 7.38 7.35 - 7.45 [facility] PCO2, Arterial 37 35 - 45 mmHg [facility] PO2, Arterial 139(H) 83 - 108 mmHg [facility] HCO3 Art (Calculated) 22 20 - 30 mmol/L [facility] BE, art -3 mmol/L [facility] Comment: Interpretive Data No Reference Range Established Current Interpretive Data was last revised on 2017 O2 Sat Art (Measured) 98(H) 90 - 95 % [facility] Blood 06/11/2022 12:1 1 PM CDT 06/11/2022 12:23 PM CDT Catherine Adams MD LAB BLOOD ORDERABLES Final Result [facility] Department [place] [address] * POCT glucose (06/11/2022 12:10 PM CDT) Glucose, POC 142 70 - 199 mg/dL [facility] Blood 06/11/2022 12:1 0 PM CDT 06/11/2022 12:10 PM CDT us Catherine Adams MD LAB POCT ORDERABLES - DEVIC E Final Result [facility] Department [place] [address] * (ABNORMAL) Manual Differential (06/11/2022 8:48 AM CDT) Differential Manual [facility] Cells Counted 120 [facility] Neutrophil abs 7.3(H) 1.7 - 6.5 K/cumm [facility] Imm gran abs 1.0(H) 0.0 - 0.1 K/cumm [facility] Lymphocyte abs 1.4 0.8 - 3.3 K/cumm [facility] Monocyte abs 0.4 0.2 - 0.8 K/cumm [facility] Eosinophil abs 0.3 0.0 - 0.5 K/cumm [facility] Neutrophil pct 70.0 % [facility] Comment: Interpretive Data Percent cell count reference ranges are not reported, since discordance with absolute values may lead to misinterpretation of CBC data. Current Interpretive Data was last revised on 2017. Lymphocyte pct 13.3 % [facility] Comment: Interpretive Data Percent cell count reference ranges are not reported, since discordance with absolute values may lead to misinterpretation of CBC data. Current Interpretive Data was last revised on 2017. Monocyte pct 4.2 % [facility] Comment: Interpretive Data Percent cell count reference ranges are not reported, since discordance with absolute values may lead to misinterpretation of CBC data. Current Interpretive Data was last revised on 2017. Eosinophil pct 3.3 % [facility] Comment: Interpretive Data Percent cell count reference ranges are not reported, since discordance with absolute values may lead to misinterpretation of CBC data. Current Interpretive Data was last revised on 2017. Metamyelocyte pct 6.7 % [facility] Myelocyte pct 2.5 % [facility] Blood 06/11/2022 8:48 AM CDT 06/11/2022 9:14 AM CDT us Catherine Adams MD LAB BLOOD ORDERABLES Final Result Performing Organization Address [facility] Co de Phone Number ALESSANDRA CARRION [facility] Department [place] [address] * (ABNORMAL) eGFR (06/11/2022 8:48 AM CDT) eGFR 30(L) 90 - 130 mL/min/1. 73 m2 [facility] Comment: Interpretive Data Reference Interval Normal ?>/= [...] BLOOD ORDERABLES Final Result Performing Organization Address City/[facility]/ZIP Co de Phone Number [facility] Department [place] [address] * Lactate, whole blood (06/11/2022 8:48 AM CDT) Pathologist [facility] Lactate, bld 1.1 0.7 - 2.0 mmol/L [facility] Blood 06/11/2022 8:48 AM CDT 06/11/2022 8:55 AM CDT Marcelina Lo PRODUCT MANAGEMENT SPECIALIST LAB BLOOD ORDERABLES Final Re sult [facility] Department [place] [address] * Magnesium (06/11/2022 8:48 AM CDT) [facility] Magnesium 2.5 1.4 - 2.5 mg/dL [facility] Blood 06/11/2022 8:48 AM CDT 06/11/2022 9:02 AM CDT Marcelina Lo PRODUCT MANAGEMENT SPECIALIST LAB BLOOD ORDERABLES Final Re sult Performing Organization Address City/[facility]/ZIP Co de Phone Number [facility] [place] [address] * (ABNORMAL) Comprehensive metabolic panel (06/11/2022 8:48 AM CDT) [facility] Sodium 134(L) 135 - 145 mmol/L [facility] Potassium, pl 4.8 3.3 - 4.9 mmol/L [facility] Chloride 100 97 - 110 mmol/L [facility] CO2 23 22 - 32 mmol/L [facility] Anion gap 11 2 - 15 mmol/L [facility] BUN 22 8 - 25 mg/dL [facility] Creatinine 2.53(H) 0.80 - 1.30 mg/dL [facility] Glucose 175 70 - 199 mg/dL [facility] Comment: Interpretive Data Fasting glucose [...] 2017. Calcium 8.4(L) 8.5 - 10.3 mg/dL [facility] Bilirubin, total 0.9 0.1 - 1.2 mg/dL [facility] Protein, pl 6.0(L) 6.5 - 8.5 g/dL [facility] Albumin 2.8(L) 3.5 - 5.0 g/dL [facility] Alk phos 200(H) 40 - 130 Units/L [facility] ALT 47 7 - 55 Units/L [facility] AST 100(H) 10 - 50 Units/L [facility] Blood 06/11/2022 8:48 AM CDT 06/11/2022 9:02 AM CDT us Marcelina Lo PRODUCT MANAGEMENT SPECIALIST LAB BLOOD ORDERABLES Final Re sult [facility] Department [place] [address] * (ABNORMAL) CBC with auto differential (06/11/2022 8:48 AM CDT) WBC 10.4(H) 3.8 - 9.9 K/cumm [facility] Hgb 7.8(L) 13.0 - 17.5 g/dL [facility] Hct 23.4(L) 38.9 - 50.3 % [facility] Plt 191 150 - 400 K/cumm [facility] MPV 10.7 9.1 - 12.3 fL [facility] RBC 2.49(L) 4.30 - 5.80 M/cumm [facility] MCV 94.0 81.3 - 96.4 fL [facility] MCH 31.3 27.1 - 33.3 pg [facility] MCHC 33.3 32.3 - 35.7 g/dL [facility] RDW CV 13.2 11.1 - 14.9 % [facility] RDW SD 45.3 35.7 - 48.1 fL [facility] NRBC abs 0.03(H) 0.00 - 0.01 K/cumm [facility] Blood 06/11/2022 8:48 AM CDT 06/11/2022 9:02 AM CDT us Marcelina Lo NP LAB BLOOD ORDERABLES Final Re sult Performing Organization Address City/[facility]/ZIP Co de Phone Number [facility] Department [place] [address] * POCT glucose (06/11/2022 8:46 AM CDT) Glucose, POC 169 70 - 199 mg/dL [facility] Blood 06/11/2022 8:46 AM CDT 06/11/2022 8:46 AM CDT us Catherine Adams MD LAB POCT ORDERABLES - DEVIC E Final Result Performing Organization Address [facility] Co de Phone Number [facility] Department [place] [address] * (ABNORMAL) Blood gas, arterial (06/11/2022 6:34 AM CDT) pH, Art 7.43 7.35 - 7.45 [facility] PCO2, Arterial 34(L) 35 - 45 mmHg [facility] PO2, Arterial 87 83 - 108 mmHg [facility] HCO3 Art (Calculated) 24 20 - 30 mmol/L [facility] BE, art -1 mmol/L [facility] Comment: Interpretive Data No Reference Range Established Current Interpretive Data was last revised on 2017 O2 Sat Art (Measured) 97(H) 90 - 95 % [facility] Blood 06/11/2022 6:34 AM CDT 06/11/2022 6:44 AM CDT Catherine Adams MD LAB BLOOD ORDERABLES Final Result ALESSANDRA AVILA [facility] Department [place] [address] * XR Chest 1 View (06/11/2022 5:48 [...] Electronically signed by: Kip Morales M.D., MPH Catherine Adams MD IMG XR PROCEDURES Final Res ult * (ABNORMAL) Blood gas, arterial (06/11/2022 3:31 AM CDT) pH, Art 7.42 7.35 - 7.45 [facility] PCO2, Arterial 36 35 - 45 mmHg [facility] PO2, Arterial 115(H) 83 - 108 mmHg [facility] HCO3 Art (Calculated) 24 20 - 30 mmol/L [facility] BE, art -1 mmol/L [facility] Comment: Interpretive Data No Reference Range Established Current Interpretive Data was last revised on 2017 O2 Sat Art (Measured) 98(H) 90 - 95 % [facility] Blood 06/11/2022 3:31 AM CDT 06/11/2022 4:00 AM CDT Marceilna Lo PRODUCT MANAGEMENT SPECIALIST LAB BLOOD ORDERABLES Final Re sult Performing Organization Address [facility] de Phone Number [facility] Department [place] [address] * Lactate, whole blood (06/11/2022 3:31 AM CDT) Pathologist [facility] Lactate, bld 1.1 0.7 - 2.0 mmol/L [facility] Blood 06/11/2022 3:31 AM CDT 06/11/2022 4:00 AM CDT us Marcelina Lo PRODUCT MANAGEMENT SPECIALIST LAB BLOOD ORDERABLES Final Re sult Performing Organization Address [facility] de Phone Number [facility] Department [place] [address] * POCT glucose (06/11/2022 3:28 AM CDT) Glucose, POC 155 70 - 199 mg/dL [facility] Blood 06/11/2022 3:28 AM CDT 06/11/2022 3:28 AM CDT Catherine Adams MD LAB POCT ORDERABLES - DEVIC E Final Result Performing Organization Address [facility] Co de Phone Number [facility] [place] [address] * Blood culture Blood Antecubital, right (06/11/2022 1:03 AM CDT) Report Final Report: No growth ALESSANDRA AVILA Blood (Antecubital, right) 06/11/2022 1:03 AM CDT 06/11/2022 9:01 AM CDT Narrative ALESSANDRA AVILA - 06/15/2022 12:00 PM CDT 1. ?Blood [...] organism identification may be performed using the [employer] Gram-Positive Blood Culture Assay. This assay detects microbial DNA in positive blood culture broth via hybridization of target DNA to capture oligonucleotides on a microarray. This assay has been cleared by the [place] Food and Drug Administration and its performance characteristics have been verified by the [facility]. 5. ?For questions about this culture, contact the Microbiology Laboratory at [phone]. Interpretive data was last revised on 2020. Catherine Adams MD LAB MICROBIOLOGY - GENERAL ORDERABLES Final Result ALESSANDRA CARRION [facility] Department [place] [address] * Blood culture Blood Antecubital, left (06/11/2022 1:03 AM CDT) Report Final Report: No growth ALESSANDRA CARRION Blood (Antecubital, left) 06/11/2022 1:03 AM CDT 06/11/2022 9:01 AM CDT Narrative ALESSANDRA AVILA - 06/15/2022 12:00 PM CDT 1. ?Blood [...] organism identification may be performed using the [employer] Gram-Positive Blood Culture Assay. This assay detects microbial DNA in positive blood culture broth via hybridization of target DNA to capture oligonucleotides on a microarray. This assay has been cleared by the [place] Food and Drug Administration and its performance characteristics have been verified by the [facility] Microbiology Laboratory. 5. ?For questions about this culture, contact the Microbiology Laboratory at [phone]. Interpretive data was last revised on 2020. us Catherine Adams MD LAB MICROBIOLOGY - GENERAL ORDERABLES Final Result ALESSANDRA CARRION [facility] Department [place] [address] * POCT glucose (06/11/2022 12:49 AM CDT) Glucose, POC 165 70 - 199 mg/dL [facility] Blood 06/11/2022 12:4 9 AM CDT 06/11/2022 12:49 AM CDT us Catherine Adams MD LAB POCT ORDERABLES - DEVIC E Final Result Performing Organization Address [facility] de Phone Number [facility] Department [place] [address] * POCT glucose (06/10/2022 10:28 PM CDT) Glucose, POC 163 70 - 199 mg/dL [facility] Blood 06/10/2022 10:2 8 PM CDT 06/10/2022 10:28 PM CDT us Catherine Adams MD LAB POCT ORDERABLES - DEVIC E Final Result Performing Organization Address [facility] de Phone Number [facility] [place] [address] * (ABNORMAL) eGFR (06/10/2022 10:27 PM CDT) Pathologist [facility] eGFR 33(L) 90 - 130 mL/min/1. 73 m2 [facility] Comment: Interpretive Data Reference Interval [...] Adams MD LAB BLOOD ORDERABLES Final Result [facility] Department [place] [address] * (ABNORMAL) Manual Differential (06/10/2022 10:27 PM CDT) Differential Manual [facility] Cells Counted 118 [facility] Neutrophil abs 13.0(H) 1.7 - 6.5 K/cumm [facility] Imm gran abs 0.6(H) 0.0 - 0.1 K/cumm [facility] Lymphocyte abs 1.3 0.8 - 3.3 K/cumm [facility] Monocyte abs 1.5(H) 0.2 - 0.8 K/cumm [facility] Eosinophil abs 0.7(H) 0.0 - 0.5 K/cumm [facility] Basophil abs 0.1 0.0 - 0.1 K/cumm [facility] Neutrophil pct 75.6 % [facility] Comment: Interpretive Data Percent cell count reference ranges are not reported, since discordance with absolute values may lead to misinterpretation of CBC data. Current Interpretive Data was last revised on 2017. Lymphocyte pct 7.6 % [facility] Comment: Interpretive Data Percent cell count reference ranges are not reported, since discordance with absolute values may lead to misinterpretation of CBC data. Current Interpretive Data was last revised on 2017. Monocyte pct 8.5 % [facility] Comment: Interpretive Data Percent cell count reference ranges are not reported, since discordance with absolute values may lead to misinterpretation of CBC data. Current Interpretive Data was last revised on 2017. Eosinophil pct 4.2 % [facility] Comment: Interpretive Data Percent cell count reference ranges are not reported, since discordance with absolute values may lead to misinterpretation of CBC data. Current Interpretive Data was last revised on 2017. Basophil pct 0.8 % [facility] Comment: Interpretive Data Percent cell count reference ranges are not reported, since discordance with absolute values may lead to misinterpretation of CBC data. Current Interpretive Data was last revised on 2017. Metamyelocyte pct 1.7 % [facility] Myelocyte pct 0.8 % [facility] Promyelocyte pct 0.8 % [facility] Blood 06/10/2022 10:2 7 PM CDT 06/10/2022 10:44 PM CDT Catherine Adams MD LAB BLOOD ORDERABLES Final Result [facility] Department [place] [address] * (ABNORMAL) Comprehensive metabolic panel (06/10/2022 10:27 PM CDT) Sodium 136 135 - 145 mmol/L [facility] Potassium, pl 4.9 3.3 - 4.9 mmol/L [facility] Chloride 99 97 - 110 mmol/L [facility] CO2 25 22 - 32 mmol/L [facility] Anion gap 12 2 - 15 mmol/L [facility] BUN 20 8 - 25 mg/dL [facility] Creatinine 2.33(H) 0.80 - 1.30 mg/dL [facility] Glucose 158 70 - 199 mg/dL [facility] Comment: Interpretive Data Fasting glucose [...] 2017. Calcium 8.6 8.5 - 10.3 mg/dL [facility] Bilirubin, total 1.0 0.1 - 1.2 mg/dL [facility] Protein, pl 6.2(L) 6.5 - 8.5 g/dL [facility] Albumin 3.1(L) 3.5 - 5.0 g/dL [facility] Alk phos 216(H) 40 - 130 Units/L [facility] ALT 49 7 - 55 Units/L [facility] AST 114(H) 10 - 50 Units/L [facility] Blood 06/10/2022 10:2 7 PM CDT 06/10/2022 10:37 PM CDT Catherine Adams MD LAB BLOOD ORDERABLES Final Result Performing Organization Address City/[facility]/ZIP Co de Phone Number [facility] [place] [address] * Magnesium (06/10/2022 10:27 PM CDT) Magnesium 2.5 1.4 - 2.5 mg/dL [facility] Blood 06/10/2022 10:2 7 PM CDT 06/10/2022 10:37 PM CDT Catherine Adams MD LAB BLOOD ORDERABLES Final Result [facility] [place] [address] * Lactate, whole blood (06/10/2022 10:27 PM CDT) Lactate, bld 1.1 0.7 - 2.0 mmol/L [facility] Blood 06/10/2022 10:2 7 PM CDT 06/10/2022 10:36 PM CDT Marcelina Lo PRODUCT MANAGEMENT SPECIALIST LAB BLOOD ORDERABLES Final Re sult Performing Organization Address City/[facility] Co de Phone Number [facility] [place] [address] * (ABNORMAL) Blood gas, arterial (06/10/2022 10:27 PM CDT) Pathologist [facility] pH, Art 7.39 7.35 - 7.45 [facility] PCO2, Arterial 37 35 - 45 mmHg [facility] PO2, Arterial 98 83 - 108 mmHg [facility] HCO3 Art (Calculated) 23 20 - 30 mmol/L [facility] BE, art -2 mmol/L [facility] Comment: Interpretive Data No Reference Range Established Current Interpretive Data was last revised on 2017 O2 Sat Art (Measured) 97(H) 90 - 95 % [facility] Blood 06/10/2022 10:2 7 PM CDT 06/10/2022 10:36 PM CDT Marcelina Lo PRODUCT MANAGEMENT SPECIALIST LAB BLOOD ORDERABLES Final Re sult Performing Organization Address [facility] Co de Phone Number [facility] [place] [address] * Phosphorus (06/10/2022 10:27 PM CDT) Pathologist [facility] Phosphorus, pl 3.6 2.3 - 4.5 mg/dL [facility] Blood 06/10/2022 10:2 7 PM CDT 06/10/2022 10:37 PM CDT Marcelina Lo PRODUCT MANAGEMENT SPECIALIST LAB BLOOD ORDERABLES Final Re sult Performing Organization Address City/[facility]/ZIP Co de Phone Number [facility] [place] [address] * (ABNORMAL) Beta-hydroxybutyrate (06/10/2022 10:27 PM CDT) [facility] Beta-Hydroxybut yrate 1.1(H) 0.0 - 0.5 mmol/L [facility] Blood 06/10/2022 10:2 7 PM CDT 06/10/2022 10:37 PM CDT Marcelina Lo PRODUCT MANAGEMENT SPECIALIST LAB BLOOD ORDERABLES Edited R esult - Final Performing Organization Address [facility]/ZIP Co de Phone Number [facility] Department [place] [address] * Lipase (06/10/2022 10:27 PM CDT) [facility] Lipase 26 10 - 99 Units/L [facility] Blood 06/10/2022 10:2 7 PM CDT 06/10/2022 10:37 PM CDT Marcelina Lo PRODUCT MANAGEMENT SPECIALIST LAB BLOOD ORDERABLES Final Re sult Performing Organization Address [facility] de Phone Number [facility] Department [place] [address] * (ABNORMAL) CBC with auto differential (06/10/2022 10:27 PM CDT) [facility] WBC 17.2(H) 3.8 - 9.9 K/cumm [facility] Hgb 9.0(L) 13.0 - 17.5 g/dL [facility] Hct 27.0(L) 38.9 - 50.3 % [facility] Plt 274 150 - 400 K/cumm [facility] MPV 10.7 9.1 - 12.3 fL [facility] RBC 2.88(L) 4.30 - 5.80 M/cumm [facility] MCV 93.8 81.3 - 96.4 fL [facility] MCH 31.3 27.1 - 33.3 pg [facility] MCHC 33.3 32.3 - 35.7 g/dL [facility] RDW CV 13.5 11.1 - 14.9 % [facility] RDW SD 46.1 35.7 - 48.1 fL [facility] NRBC abs 0.08(H) 0.00 - 0.01 K/cumm [facility] Blood 06/10/2022 10:2 7 PM CDT 06/10/2022 10:37 PM CDT us Marcelina Lo PRODUCT MANAGEMENT SPECIALIST LAB BLOOD ORDERABLES Final Re sult Performing Organization Address City/[facility]/ZIP Co de Phone Number [facility] Department [place] [address] * POCT glucose (06/10/2022 5:13 PM CDT) Glucose, POC 106 70 - 199 mg/dL [facility] Blood 06/10/2022 5:13 PM CDT 06/10/2022 5:13 PM CDT us Catherine Adams MD LAB POCT ORDERABLES - DEVIC E Final Result Performing Organization Address City/[facility]/ZIP Co de Phone Number [facility] Department [place] [address] * (ABNORMAL) Triglycerides (06/10/2022 5:13 PM CDT) Triglycerides 401(H) <=149 mg/dL [facility] Comment: Interpretive Data Ages < [...] PM CDT 06/10/2022 5:39 PM CDT Narrative [facility] - 06/10/2022 6:07 PM CDT While on propofol infusion. us Catherine Adams MD LAB BLOOD ORDERABLES Final Result Performing Organization Address [facility] de Phone Number [facility] [place] [address] * (ABNORMAL) Blood gas, arterial (06/10/2022 2:24 PM CDT) pH, Art 7.38 7.35 - 7.45 [facility] PCO2, Arterial 39 35 - 45 mmHg [facility] PO2, Arterial 66(L) 83 - 108 mmHg [facility] HCO3 Art (Calculated) 24 20 - 30 mmol/L [facility] BE, art -2 mmol/L [facility] Comment: Interpretive Data No Reference Range Established Current Interpretive Data was last revised on 2017 O2 Sat Art (Measured) 91 90 - 95 % [facility] Blood 06/10/2022 2:24 PM CDT 06/10/2022 2:31 PM CDT us Marcelina Lo NP LAB BLOOD ORDERABLES Final Re sult Performing Organization Address [facility] Co de Phone Number [facility] [place] [place] [address] * POCT glucose (06/10/2022 1:13 PM CDT) Glucose, POC 189 70 - 199 mg/dL [facility] Blood 06/10/2022 1:13 PM CDT 06/10/2022 1:13 PM CDT Catherine Adams MD LAB POCT ORDERABLES - DEVIC E Final Result Performing Organization Address [facility] Co de Phone Number [facility] Department [place] [address] * Lactate, whole blood (06/10/2022 1:12 PM CDT) Pathologist [facility] Lactate, bld 1.1 0.7 - 2.0 mmol/L [facility] Blood 06/10/2022 1:12 PM CDT 06/10/2022 1:25 PM CDT us Marcelina Lo PRODUCT MANAGEMENT SPECIALIST LAB BLOOD ORDERABLES Final Re sult Performing Organization Address [facility] de Phone Number [facility] Department [place] [address] * (ABNORMAL) Blood gas, arterial (06/10/2022 1:12 PM CDT) Pathologist [facility] pH, Art 7.40 7.35 - 7.45 [facility] PCO2, Arterial 36 35 - 45 mmHg [facility] PO2, Arterial 67(L) 83 - 108 mmHg [facility] HCO3 Art (Calculated) 23 20 - 30 mmol/L [facility] BE, art -2 mmol/L [facility] Comment: Interpretive Data No Reference Range Established Current Interpretive Data was last revised on 2017 O2 Sat Art (Measured) 92 90 - 95 % [facility] Blood 06/10/2022 1:12 PM CDT 06/10/2022 1:25 PM CDT us Marcelina Lo PRODUCT MANAGEMENT SPECIALIST LAB BLOOD ORDERABLES Final Re sult ALESSANDRA CARRION [facility] Department [place] [address] * REMOVE VAD - DIFFERENT SESSION (06/10/2022 [...] pressure. 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 ??Impella is currently weaned to P2 and ready for removal. ?? Pre close system had been used with two 6 Sudanese pro style placed in orthogonal fashion prior [...] x2. 2. History of non ST elevation MS with mild LV dysfunction status post recent [...] time, low range (06/10/2022 9:56 AM CDT) [facility] ACT 183(H) 123 - 168 sec [facility] Blood 06/10/2022 9:56 AM CDT 06/10/2022 9:56 AM CDT Catherine Adams MD LAB POCT ORDERABLES - DEVIC E Final Result Performing Organization Address City/[facility] Co de Phone Number [facility] Department [place] [address] * (ABNORMAL) POCT Activated clotting time, low range (06/10/2022 8:08 AM CDT) [facility] ACT 214(H) 123 - 168 sec [facility] Blood 06/10/2022 8:08 AM CDT 06/10/2022 8:08 AM CDT Catherine Adams MD LAB POCT ORDERABLES - DEVIC E Final Result Performing Organization Address City/[facility]/ZIP Co de Phone Number [facility] Department [place] [address] * POCT glucose (06/10/2022 7:54 AM CDT) Glucose, POC 138 70 - 199 mg/dL [facility] Blood 06/10/2022 7:54 AM CDT 06/10/2022 7:54 AM CDT us Catherine Adams MD LAB POCT ORDERABLES - DEVIC E Final Result [facility] Department [place] [address] * (ABNORMAL) eGFR (06/10/2022 7:52 AM CDT) [facility] eGFR 31(L) 90 - 130 mL/min/1. 73 m2 [facility] Comment: Interpretive Data Reference Interval [...] Adams MD LAB BLOOD ORDERABLES Final Result [facility] Department [place] [address] * (ABNORMAL) Differential, auto (06/10/2022 7:52 AM CDT) Neutrophil abs 6.7(H) 1.7 - 6.5 K/cumm [facility] Imm gran abs 1.0(H) 0.0 - 0.1 K/cumm [facility] Lymphocyte abs 1.4 0.8 - 3.3 K/cumm [facility] Monocyte abs 0.9(H) 0.2 - 0.8 K/cumm [facility] Eosinophil abs 0.3 0.0 - 0.5 K/cumm [facility] Basophil abs 0.0 0.0 - 0.1 K/cumm [facility] Neutrophil pct 65.5 % [facility] Comment: Confirmed by smear review Interpretive Data Percent cell count reference ranges are not reported, since discordance with absolute values may lead to misinterpretation of CBC data. Current Interpretive Data was last revised on 2017. Imm gran pct 9.4 % [facility] Comment: Interpretive Data Percent cell count reference ranges are not reported, since discordance with absolute values may lead to misinterpretation of CBC data. Current Interpretive Data was last revised on 2017. Lymphocyte pct 13.4 % [facility] Comment: Interpretive Data Percent cell count reference ranges are not reported, since discordance with absolute values may lead to misinterpretation of CBC data. Current Interpretive Data was last revised on 2017. Monocyte pct 8.8 % [facility] Comment: Interpretive Data Percent cell count reference ranges are not reported, since discordance with absolute values may lead to misinterpretation of CBC data. Current Interpretive Data was last revised on 2017. Eosinophil pct 2.6 % [facility] Comment: Interpretive Data Percent cell count reference ranges are not reported, since discordance with absolute values may lead to misinterpretation of CBC data. Current Interpretive Data was last revised on 2017. Basophil pct 0.3 % [facility] Comment: Interpretive Data Percent cell count reference ranges are not reported, since discordance with absolute values may lead to misinterpretation of CBC data. Current Interpretive Data was last revised on 2017. Blood 06/10/2022 7:52 AM CDT 06/10/2022 8:07 AM CDT us Catherine Adams MD LAB BLOOD ORDERABLES Final Result Performing Organization Address City/[facility] Co de Phone Number [facility] [place] [place] [address] * Lactate, whole blood (06/10/2022 7:52 AM CDT) Lactate, bld 1.2 0.7 - 2.0 mmol/L [facility] Blood 06/10/2022 7:52 AM CDT 06/10/2022 8:02 AM CDT us Marcelina Lo NP LAB BLOOD ORDERABLES Final Re sult Performing Organization Address [facility] Co de Phone Number [facility] [place] [address] * (ABNORMAL) Blood gas, arterial (06/10/2022 7:52 AM CDT) pH, Art 7.46(H) 7.35 - 7.45 [facility] PCO2, Arterial 34(L) 35 - 45 mmHg [facility] PO2, Arterial 99 83 - 108 mmHg [facility] HCO3 Art (Calculated) 25 20 - 30 mmol/L [facility] BE, art 1 mmol/L [facility] Comment: Interpretive Data No Reference Range Established Current Interpretive Data was last revised on 2017 O2 Sat Art (Measured) 98(H) 90 - 95 % [facility] Blood 06/10/2022 7:52 AM CDT 06/10/2022 8:02 AM CDT Marcelina Lo PRODUCT MANAGEMENT SPECIALIST LAB BLOOD ORDERABLES Final Re sult Performing Organization Address City/[facility]/ZIP Co de Phone Number [facility] Department [place] [address] * Magnesium (06/10/2022 7:52 AM CDT) Pathologist [facility] Magnesium 2.4 1.4 - 2.5 mg/dL [facility] Blood 06/10/2022 7:52 AM CDT 06/10/2022 8:07 AM CDT Marcelina Lo PRODUCT MANAGEMENT SPECIALIST LAB BLOOD ORDERABLES Final Re sult Performing Organization Address [facility] de Phone Number [facility] Department [place] [address] * (ABNORMAL) Comprehensive metabolic panel (06/10/2022 7:52 AM CDT) Pathologist [facility] Sodium 135 135 - 145 mmol/L [facility] Potassium, pl 4.3 3.3 - 4.9 mmol/L [facility] Chloride 100 97 - 110 mmol/L [facility] CO2 26 22 - 32 mmol/L [facility] Anion gap 9 2 - 15 mmol/L [facility] BUN 20 8 - 25 mg/dL [facility] Creatinine 2.44(H) 0.80 - 1.30 mg/dL [facility] Glucose 138 70 - 199 mg/dL [facility] Comment: Interpretive Data Fasting glucose [...] 2017. Calcium 8.4(L) 8.5 - 10.3 mg/dL [facility] Bilirubin, total 0.8 0.1 - 1.2 mg/dL [facility] Protein, pl 6.2(L) 6.5 - 8.5 g/dL [facility] Albumin 3.0(L) 3.5 - 5.0 g/dL [facility] Alk phos 169(H) 40 - 130 Units/L [facility] ALT 45 7 - 55 Units/L [facility] AST 117(H) 10 - 50 Units/L [facility] Blood 06/10/2022 7:52 AM CDT 06/10/2022 8:07 AM CDT us Marcelina Lo PRODUCT MANAGEMENT SPECIALIST LAB BLOOD ORDERABLES Final Re sult [facility] Department [place] [address] * (ABNORMAL) CBC with auto differential (06/10/2022 7:52 AM CDT) WBC 10.2(H) 3.8 - 9.9 K/cumm [facility] Hgb 8.3(L) 13.0 - 17.5 g/dL [facility] Hct 25.1(L) 38.9 - 50.3 % [facility] Plt 201 150 - 400 K/cumm [facility] MPV 10.9 9.1 - 12.3 fL [facility] RBC 2.70(L) 4.30 - 5.80 M/cumm [facility] MCV 93.0 81.3 - 96.4 fL [facility] MCH 30.7 27.1 - 33.3 pg [facility] MCHC 33.1 32.3 - 35.7 g/dL [facility] RDW CV 13.3 11.1 - 14.9 % [facility] RDW SD 45.1 35.7 - 48.1 fL [facility] NRBC abs 0.02(H) 0.00 - 0.01 K/cumm [facility] Blood 06/10/2022 7:52 AM CDT 06/10/2022 8:07 AM CDT Marcelina Lo PRODUCT MANAGEMENT SPECIALIST LAB BLOOD ORDERABLES Final Re sult Performing Organization Address [facility] de Phone Number [facility] [place] [address] * Oxyhemoglobin, central venous (06/10/2022 5:36 AM CDT) Oxyhemoglobin, CV 70.2 % [facility] Comment: Interpretive Data No reference range established. Current interpretive data was last revised 2019. Blood 06/10/2022 5:36 AM CDT 06/10/2022 5:58 AM CDT Lavern Morrison MD LAB BLOOD ORDERABLES F inal Result Performing Organization Address [facility] de Phone Number [facility] [place] [address] * Lactate, whole blood (06/10/2022 5:36 AM CDT) Lactate, bld 1.4 0.7 - 2.0 mmol/L [facility] Blood 06/10/2022 5:36 AM CDT 06/10/2022 5:58 AM CDT Marcelina Lo PRODUCT MANAGEMENT SPECIALIST LAB BLOOD ORDERABLES Final Re sult Performing Organization Address [facility] de Phone Number [facility] [place] [address] * XR Chest 1 View (06/10/2022 5:32 AM CDT) Anatomical Region Laterality Modality Body, Chest N/A Computed Radiogr aphy 06/10/2022 11:3 8 AM CDT Impressions 06/10/2022 11:42 AM CDT Comparison is made with prior radiograph dated 06/09/2022 7:57 AM. ??Left internal jugular central venous catheter terminates in the proximal superior vena cava. Feeding tube courses below diaphragm with tip not seen. Inferior approach [place]-Liv catheter has tip projecting over the main [...] diaphragm with tip not seen. Inferior approach [place]Liv catheter has tip projecting over the main [...] Blood gas, arterial (06/10/2022 3:45 AM CDT) [facility] pH, Art 7.45 7.35 - 7.45 [facility] PCO2, Arterial 36 35 - 45 mmHg [facility] PO2, Arterial 92 83 - 108 mmHg [facility] HCO3 Art (Calculated) 26 20 - 30 mmol/L [facility] BE, art 1 mmol/L [facility] Comment: Interpretive Data No Reference Range Established Current Interpretive Data was last revised on 2017 O2 Sat Art (Measured) 97(H) 90 - 95 % [facility] Blood 06/10/2022 3:45 AM CDT 06/10/2022 3:52 AM CDT us Marcelina Lo NP LAB BLOOD ORDERABLES Final Re sult Performing Organization Address [facility]/ZIP Co de Phone Number [facility] Department [place] [address] * POCT glucose (06/10/2022 3:42 AM CDT) Glucose, POC 150 70 - 199 mg/dL [facility] Blood 06/10/2022 3:42 AM CDT 06/10/2022 3:42 AM CDT us Catherine Adams MD LAB POCT ORDERABLES - DEVIC E Final Result Performing Organization Address City/[facility]/ZIP Co de Phone Number [facility] Department [place] [address] * Lactate, whole blood (06/10/2022 12:26 AM CDT) Lactate, bld 1.4 0.7 - 2.0 mmol/L [facility] Blood 06/10/2022 12:2 6 AM CDT 06/10/2022 12:33 AM CDT Catherine Adams MD LAB BLOOD ORDERABLES Final Result Performing Organization Address City/[facility] Co de Phone Number [facility] Department [place] [address] * (ABNORMAL) Blood gas, arterial (06/10/2022 12:26 AM CDT) pH, Art 7.45 7.35 - 7.45 [facility] PCO2, Arterial 36 35 - 45 mmHg [facility] PO2, Arterial 102 83 - 108 mmHg [facility] HCO3 Art (Calculated) 26 20 - 30 mmol/L [facility] BE, art 2 mmol/L [facility] Comment: Interpretive Data No Reference Range Established Current Interpretive Data was last revised on 2017 O2 Sat Art (Measured) 96(H) 90 - 95 % [facility] Blood 06/10/2022 12:2 6 AM CDT 06/10/2022 12:33 AM CDT us Marcelina Lo NP LAB BLOOD ORDERABLES Final Re sult [facility] Department [place] [address] * POCT glucose (06/10/2022 12:21 AM CDT) Glucose, POC 157 70 - 199 mg/dL [facility] Blood 06/10/2022 12:2 1 AM CDT 06/10/2022 12:21 AM CDT us Catherine Adams MD LAB POCT ORDERABLES - DEVIC E Final Result [facility] [place] [address] * (ABNORMAL) Blood gas, arterial (06/09/2022 10:28 PM CDT) pH, Art 7.43 7.35 - 7.45 [facility] PCO2, Arterial 38 35 - 45 mmHg [facility] PO2, Arterial 93 83 - 108 mmHg [facility] HCO3 Art (Calculated) 26 20 - 30 mmol/L [facility] BE, art 1 mmol/L [facility] Comment: Interpretive Data No Reference Range Established Current Interpretive Data was last revised on 2017 O2 Sat Art (Measured) 97(H) 90 - 95 % [facility] Blood 06/09/2022 10:2 8 PM CDT 06/09/2022 10:38 PM CDT Catherine Adams MD LAB BLOOD ORDERABLES Final Result Performing Organization Address [facility] de Phone Number [facility] Department [place] [address] * POCT glucose (06/09/2022 8:40 PM CDT) Glucose, POC 182 70 - 199 mg/dL [facility] Blood 06/09/2022 8:40 PM CDT 06/09/2022 8:40 PM CDT Catherine Adams MD LAB POCT ORDERABLES - DEVIC E Final Result Performing Organization Address [facility] de Phone Number [facility] Department [place] [address] * (ABNORMAL) eGFR (06/09/2022 8:33 PM CDT) eGFR 26(L) 90 - 130 mL/min/1. 73 m2 [facility] Comment: Interpretive Data Reference Interval [...] BLOOD ORDERABLES Final Result Performing Organization Address City/State/[facility] Co de Phone Number [facility] Department [place] [address] * (ABNORMAL) Differential, auto (06/09/2022 8:33 PM CDT) Neutrophil abs 5.8 1.7 - 6.5 K/cumm [facility] Imm gran abs 0.7(H) 0.0 - 0.1 K/cumm [facility] Lymphocyte abs 1.2 0.8 - 3.3 K/cumm [facility] Monocyte abs 1.0(H) 0.2 - 0.8 K/cumm [facility] Eosinophil abs 0.3 0.0 - 0.5 K/cumm [facility] Basophil abs 0.0 0.0 - 0.1 K/cumm [facility] Neutrophil pct 64.3 % [facility] Comment: Interpretive Data Percent cell count reference ranges are not reported, since discordance with absolute values may lead to misinterpretation of CBC data. Current Interpretive Data was last revised on 2017. Imm gran pct 7.7 % [facility] Comment: Interpretive Data Percent cell count reference ranges are not reported, since discordance with absolute values may lead to misinterpretation of CBC data. Current Interpretive Data was last revised on 2017. Lymphocyte pct 13.4 % [facility] Comment: Interpretive Data Percent cell count reference ranges are not reported, since discordance with absolute values may lead to misinterpretation of CBC data. Current Interpretive Data was last revised on 2017. Monocyte pct 11.5 % [facility] Comment: Interpretive Data Percent cell count reference ranges are not reported, since discordance with absolute values may lead to misinterpretation of CBC data. Current Interpretive Data was last revised on 2017. Eosinophil pct 2.8 % [facility] Comment: Interpretive Data Percent cell count reference ranges are not reported, since discordance with absolute values may lead to misinterpretation of CBC data. Current Interpretive Data was last revised on 2017. Basophil pct 0.3 % [facility] Comment: Interpretive Data Percent cell count reference ranges are not reported, since discordance with absolute values may lead to misinterpretation of CBC data. Current Interpretive Data was last revised on 2017. Blood 06/09/2022 8:33 PM CDT 06/09/2022 9:07 PM CDT Catherine Adams MD LAB BLOOD ORDERABLES Final Result [facility] Department [place] [address] * (ABNORMAL) Blood gas, arterial (06/09/2022 8:33 PM CDT) pH, Art 7.41 7.35 - 7.45 [facility] PCO2, Arterial 39 35 - 45 mmHg [facility] PO2, Arterial 92 83 - 108 mmHg [facility] HCO3 Art (Calculated) 25 20 - 30 mmol/L [facility] BE, art 0 mmol/L [facility] Comment: Interpretive Data No Reference Range Established Current Interpretive Data was last revised on 2017 O2 Sat Art (Measured) 96(H) 90 - 95 % [facility] Blood 06/09/2022 8:33 PM CDT 06/09/2022 8:58 PM CDT Marcelina oL PRODUCT MANAGEMENT SPECIALIST LAB BLOOD ORDERABLES Final Re sult Performing Organization Address [facility] Co de Phone Number [facility] [place] [address] * (ABNORMAL) aPTT (06/09/2022 8:33 PM CDT) aPTT 92(H) 27 - 37 sec [facility] Comment: Interpretive Data Therapeutic heparin range: 60.0 - 94.0 seconds. Based on correlation with therapeutic heparin activity range of 0.3-0.7 Units/mL. Current interpretive data was last revised on 2020. Blood 06/09/2022 8:33 PM CDT 06/09/2022 9:01 PM CDT Narrative [facility] - 06/09/2022 9:28 PM CDT Draw STAT [...] Ann Marie l Result Performing Organization Address [facility] Co de Phone Number [facility] Department [place] [address] * Phosphorus (06/09/2022 8:33 PM CDT) Phosphorus, pl 3.2 2.3 - 4.5 mg/dL [facility] Blood 06/09/2022 8:33 PM CDT 06/09/2022 9:07 PM CDT Marcelina Lo PRODUCT MANAGEMENT SPECIALIST LAB BLOOD ORDERABLES Final Re sult Performing Organization Address [facility] Co de Phone Number [facility] Department [place] [address] * Beta-hydroxybutyrate (06/09/2022 8:33 PM CDT) Beta-Hydroxybut yrate 0.3 0.0 - 0.5 mmol/L [facility] Blood 06/09/2022 8:33 PM CDT 06/09/2022 9:07 PM CDT us Marcelina Lo PRODUCT MANAGEMENT SPECIALIST LAB BLOOD ORDERABLES Edited [place] [address] * Haptoglobin (06/09/2022 8:33 PM CDT) Haptoglobin 153.0 30.0 - 200.0 mg/dL [facility] Blood 06/09/2022 8:33 PM CDT 06/09/2022 9:07 PM CDT Catherine Adams MD LAB BLOOD ORDERABLES Final Result [facility] Department [place] [address] * Lipase (06/09/2022 8:33 PM CDT) Lipase 21 10 - 99 Units/L [facility] Blood 06/09/2022 8:33 PM CDT 06/09/2022 9:07 PM CDT us Marcelina Lo PRODUCT MANAGEMENT SPECIALIST LAB BLOOD ORDERABLES Final Re sult [facility] Department [place] [address] * (ABNORMAL) Lactate dehydrogenase (LD) (06/09/2022 8:33 PM CDT) Pathologist [facility] Lactate dehydrogenase (LDH) 528(H) 100 - 250 Units/L [facility] Blood 06/09/2022 8:33 PM CDT 06/09/2022 9:07 PM CDT Catherine Adams MD LAB BLOOD ORDERABLES Final Result [facility] Department [place] [address] * Magnesium (06/09/2022 8:33 PM CDT) [facility] Magnesium 2.4 1.4 - 2.5 mg/dL [facility] Blood 06/09/2022 8:33 PM CDT 06/09/2022 9:07 PM CDT Marcelina Lo NP LAB BLOOD ORDERABLES Final Re sult Performing Organization Address City/[facility]/ZIP Co de Phone Number [facility] Department [place] [address] * (ABNORMAL) Comprehensive metabolic panel (06/09/2022 8:33 PM CDT) [facility] Sodium 134(L) 135 - 145 mmol/L [facility] Potassium, pl 4.4 3.3 - 4.9 mmol/L [facility] Chloride 99 97 - 110 mmol/L [facility] CO2 25 22 - 32 mmol/L [facility] Anion gap 10 2 - 15 mmol/L [facility] BUN 24 8 - 25 mg/dL [facility] Creatinine 2.82(H) 0.80 - 1.30 mg/dL [facility] Glucose 173 70 - 199 mg/dL [facility] Comment: Interpretive Data Fasting glucose [...] 2017. Calcium 8.3(L) 8.5 - 10.3 mg/dL [facility] Bilirubin, total 0.8 0.1 - 1.2 mg/dL [facility] Protein, pl 6.1(L) 6.5 - 8.5 g/dL [facility] Albumin 2.8(L) 3.5 - 5.0 g/dL [facility] Alk phos 168(H) 40 - 130 Units/L [facility] ALT 45 7 - 55 Units/L [facility] AST 129(H) 10 - 50 Units/L [facility] Blood 06/09/2022 8:33 PM CDT 06/09/2022 9:07 PM CDT us Marcelina Lo PRODUCT MANAGEMENT SPECIALIST LAB BLOOD ORDERABLES Final Re sult [facility] Department [place] [address] * (ABNORMAL) CBC with auto differential (06/09/2022 8:33 PM CDT) WBC 9.1 3.8 - 9.9 K/cumm [facility] Hgb 8.2(L) 13.0 - 17.5 g/dL [facility] Hct 24.8(L) 38.9 - 50.3 % [facility] Plt 208 150 - 400 K/cumm [facility] MPV 11.0 9.1 - 12.3 fL [facility] RBC 2.66(L) 4.30 - 5.80 M/cumm [facility] MCV 93.2 81.3 - 96.4 fL [facility] MCH 30.8 27.1 - 33.3 pg [facility] MCHC 33.1 32.3 - 35.7 g/dL [facility] RDW CV 13.2 11.1 - 14.9 % [facility] RDW SD 45.5 35.7 - 48.1 fL [facility] NRBC abs 0.00 0.00 - 0.01 K/cumm [facility] Blood 06/09/2022 8:33 PM CDT 06/09/2022 9:07 PM CDT Marcelina Lo PRODUCT MANAGEMENT SPECIALIST LAB BLOOD ORDERABLES Final Re sult Performing Organization Address [facility] Co de Phone Number [facility] [place] [address] * Oxyhemoglobin, pulmonary artery (06/09/2022 3:52 PM CDT) Oxyhemoglobin, PA 66.5 % [facility] Comment: Interpretive Data No reference range established. Current interpretive data was last revised 2019. Blood 06/09/2022 3:52 PM CDT 06/09/2022 4:01 PM CDT Marcelina Lo PRODUCT MANAGEMENT SPECIALIST LAB BLOOD ORDERABLES Final Re sult Performing Organization Address [facility] Co de Phone Number [facility] [place] [address] * Lactate, whole blood (06/09/2022 3:52 PM CDT) Lactate, bld 1.4 0.7 - 2.0 mmol/L [facility] Blood 06/09/2022 3:52 PM CDT 06/09/2022 4:01 PM CDT Marcelina Lo PRODUCT MANAGEMENT SPECIALIST LAB BLOOD ORDERABLES Final Re sult Performing Organization Address [facility] Co de Phone Number [facility] [place] [address] * (ABNORMAL) Hemoglobin total, pulmonary artery (06/09/2022 3:52 PM CDT) Hemoglobin total, PA 8.9(L) 13.0 - 17.5 g/dL [facility] Blood 06/09/2022 3:52 PM CDT 06/09/2022 4:01 PM CDT Marcelina Lo PRODUCT MANAGEMENT SPECIALIST LAB BLOOD ORDERABLES Final Re sult Performing Organization Address [facility] de Phone Number [facility] Department [place] [address] * (ABNORMAL) Blood gas, arterial (06/09/2022 3:52 PM CDT) Pathologist [facility] pH, Art 7.38 7.35 - 7.45 [facility] PCO2, Arterial 45 35 - 45 mmHg [facility] PO2, Arterial 80(L) 83 - 108 mmHg [facility] HCO3 Art (Calculated) 27 20 - 30 mmol/L [facility] BE, art 1 mmol/L [facility] Comment: Interpretive Data No Reference Range Established Current Interpretive Data was last revised on 2017 O2 Sat Art (Measured) 94 90 - 95 % [facility] Blood 06/09/2022 3:52 PM CDT 06/09/2022 4:[address] [facility] Catherine Adams MD LAB BLOOD ORDERABLES Final Result Performing Organization Address [facility] Co de Phone Number [facility] Department [place] [address] * POCT glucose (06/09/2022 3:50 PM CDT) Glucose, POC 136 70 - 199 mg/dL [facility] Blood 06/09/2022 3:50 PM CDT 06/09/2022 3:[address] [facility] Catherine Adams MD LAB POCT ORDERABLES - DEVIC E Final Result Performing Organization Address [facility] Co de Phone Number [facility] [place] [address] * Lactate, whole blood (06/09/2022 11:59 AM CDT) Lactate, bld 1.3 0.7 - 2.0 mmol/L [facility] Blood 06/09/2022 11:5 9 AM CDT 06/09/2022 12:[address] [facility] Marcelina Lo PRODUCT MANAGEMENT SPECIALIST LAB BLOOD ORDERABLES Final Re sult Performing Organization Address [facility] Co de Phone Number [facility] [place] [address] * (ABNORMAL) Hemoglobin total, pulmonary artery (06/09/2022 11:59 AM CDT) Hemoglobin total, PA 10.2(L) 13.0 - 17.5 g/dL [facility] Blood 06/09/2022 11:5 9 AM CDT 06/09/2022 12:[address] [facility] Marcelina Lo PRODUCT MANAGEMENT SPECIALIST LAB BLOOD ORDERABLES Final Re sult Performing Organization Address [facility] Co de Phone Number [facility] [place] [place] [address] * Oxyhemoglobin, pulmonary artery (06/09/2022 11:59 AM CDT) Oxyhemoglobin, PA 65.2 % [facility] Comment: Interpretive Data No reference range established. Current interpretive data was last revised 2019. Blood 06/09/2022 11:5 9 AM CDT 06/09/2022 12:10 PM CDT Marcelina Lo NP LAB BLOOD ORDERABLES Final Re sult Performing Organization Address [facility] Co de Phone Number [facility] [place] [address] * (ABNORMAL) aPTT (06/09/2022 11:59 AM CDT) aPTT 79(H) 27 - 37 sec [facility] Comment: Interpretive Data Therapeutic heparin range: 60.0 - 94.0 seconds. Based on correlation with therapeutic heparin activity range of 0.3-0.7 Units/mL. Current interpretive data was last revised on 2020. Blood 06/09/2022 11:5 9 AM CDT 06/09/2022 12:14 PM CDT Narrative [facility] - 06/09/2022 12:40 PM CDT Draw STAT [...] Ann Marie l Result Performing Organization Address [facility] Co de Phone Number [facility] [place] [address] * POCT glucose (06/09/2022 11:58 AM CDT) Glucose, POC 171 70 - 199 mg/dL [facility] Blood 06/09/2022 11:5 8 AM CDT 06/09/2022 11:58 AM CDT Catherine Adams MD LAB POCT ORDERABLES - DEVIC E Final Result Performing Organization Address [facility] Co de Phone Number [facility] [place] [address] * XR Chest 1 View (06/09/2022 8:57 [...] diaphragm with tip not seen. Inferior approach [place]-Liv catheter has been retracted with the tip projecting over the main pulmonary artery. An Impella device is in place, unchanged. There is mild cardiomegaly, unchanged. There is moderate asymmetric left lung and right upper lobe pulmonary edema. Likely small left pleural effusion although the left costophrenic angle is partially off the [id number]. No right pleural effusion or pneumothorax. Second exam ??06/09/2022 7:57 AM The [place]-Liv catheter has been slightly advanced with tip [...] diaphragm with tip not seen. Inferior approach [place]-Liv catheter has been retracted with the tip projecting over the main pulmonary artery. An Impella device is in place, unchanged. There is mild cardiomegaly, unchanged. There is moderate asymmetric left lung and right upper lobe pulmonary edema. Likely small left pleural effusion although the left costophrenic angle is partially off the [id number]. No right pleural effusion or pneumothorax. Second exam 06/09/2022 7:57 AM The [place]-Liv catheter has been slightly advanced with tip [...] * (ABNORMAL) eGFR (06/09/2022 7:57 AM CDT) eGFR 20(L) 90 - 130 mL/min/1. 73 m2 [facility] Comment: Interpretive Data Reference Interval Normal ?>/= [...] Adams MD LAB BLOOD ORDERABLES Final Result [facility] Department [place] [address] * (ABNORMAL) Differential, auto (06/09/2022 7:57 AM CDT) Neutrophil abs 5.8 1.7 - 6.5 K/cumm [facility] Imm gran abs 0.5(H) 0.0 - 0.1 K/cumm [facility] Lymphocyte abs 1.2 0.8 - 3.3 K/cumm [facility] Monocyte abs 1.0(H) 0.2 - 0.8 K/cumm [facility] Eosinophil abs 0.2 0.0 - 0.5 K/cumm [facility] Basophil abs 0.0 0.0 - 0.1 K/cumm [facility] Neutrophil pct 67.0 % [facility] Comment: Interpretive Data Percent cell count reference ranges are not reported, since discordance with absolute values may lead to misinterpretation of CBC data. Current Interpretive Data was last revised on 2017. Imm gran pct 5.6 % [facility] Comment: Interpretive Data Percent cell count reference ranges are not reported, since discordance with absolute values may lead to misinterpretation of CBC data. Current Interpretive Data was last revised on 2017. Lymphocyte pct 13.6 % [facility] Comment: Interpretive Data Percent cell count reference ranges are not reported, since discordance with absolute values may lead to misinterpretation of CBC data. Current Interpretive Data was last revised on 2017. Monocyte pct 11.4 % [facility] Comment: Interpretive Data Percent cell count reference ranges are not reported, since discordance with absolute values may lead to misinterpretation of CBC data. Current Interpretive Data was last revised on 2017. Eosinophil pct 2.2 % [facility] Comment: Interpretive Data Percent cell count reference ranges are not reported, since discordance with absolute values may lead to misinterpretation of CBC data. Current Interpretive Data was last revised on 2017. Basophil pct 0.2 % [facility] Comment: Interpretive Data Percent cell count reference ranges are not reported, since discordance with absolute values may lead to misinterpretation of CBC data. Current Interpretive Data was last revised on 2017. Blood 06/09/2022 7:57 AM CDT 06/09/2022 8:19 AM CDT Catherine Adams MD LAB BLOOD ORDERABLES Final Result Performing Organization Address City/[facility]/ZIP Co de Phone Number [facility] Department [place] [address] * Magnesium (06/09/2022 7:57 AM CDT) [facility] Magnesium 2.3 1.4 - 2.5 mg/dL [facility] Blood 06/09/2022 7:57 AM CDT 06/09/2022 8:19 AM CDT Marcelina Lo NP LAB BLOOD ORDERABLES Final Re sult Performing Organization Address [facility]/ZIP Co de Phone Number [facility] Department [place] [address] * (ABNORMAL) Comprehensive metabolic panel (06/09/2022 7:57 AM CDT) Sodium 134(L) 135 - 145 mmol/L [facility] Potassium, pl 4.5 3.3 - 4.9 mmol/L [facility] Chloride 99 97 - 110 mmol/L [facility] CO2 28 22 - 32 mmol/L [facility] Anion gap 7 2 - 15 mmol/L [facility] BUN 32(H) 8 - 25 mg/dL [facility] Creatinine 3.50(H) 0.80 - 1.30 mg/dL [facility] Glucose 171 70 - 199 mg/dL [facility] Comment: Interpretive Data Fasting glucose [...] 2017. Calcium 8.4(L) 8.5 - 10.3 mg/dL [facility] Bilirubin, total 0.6 0.1 - 1.2 mg/dL [facility] Protein, pl 5.8(L) 6.5 - 8.5 g/dL [facility] Albumin 2.8(L) 3.5 - 5.0 g/dL [facility] Alk phos 165(H) 40 - 130 Units/L [facility] ALT 43 7 - 55 Units/L [facility] AST 133(H) 10 - 50 Units/L [facility] Blood 06/09/2022 7:57 AM CDT 06/09/2022 8:19 AM CDT Marcelina Lo PRODUCT MANAGEMENT SPECIALIST LAB BLOOD ORDERABLES Final Re sult [facility] Department [place] [address] * Potassium, whole blood (06/09/2022 7:57 AM CDT) Potassium, bld 4.2 3.3 - 4.9 mmol/L [facility] Blood 06/09/2022 7:57 AM CDT 06/09/2022 8:14 AM CDT Marcelina Lo PRODUCT MANAGEMENT SPECIALIST LAB BLOOD ORDERABLES Final Re sult [facility] [place] [address] * (ABNORMAL) Blood gas, arterial (06/09/2022 7:57 AM CDT) [facility] pH, Art 7.43 7.35 - 7.45 [facility] PCO2, Arterial 39 35 - 45 mmHg [facility] PO2, Arterial 107 83 - 108 mmHg [facility] HCO3 Art (Calculated) 27 20 - 30 mmol/L [facility] BE, art 2 mmol/L [facility] Comment: Interpretive Data No Reference Range Established Current Interpretive Data was last revised on 2017 O2 Sat Art (Measured) 97(H) 90 - 95 % [facility] Blood 06/09/2022 7:57 AM CDT 06/09/2022 8:14 AM CDT Marcelina Lo PRODUCT MANAGEMENT SPECIALIST LAB BLOOD ORDERABLES Final Re sult [facility] Department [place] [address] * Lactate, whole blood (06/09/2022 7:57 AM CDT) [facility] Lactate, bld 1.1 0.7 - 2.0 mmol/L [facility] Blood 06/09/2022 7:57 AM CDT 06/09/2022 8:14 AM CDT Marcelina Lo PRODUCT MANAGEMENT SPECIALIST LAB BLOOD ORDERABLES Final Re sult [facility] [place] [address] * Type and screen (06/09/2022 7:57 AM CDT) [facility] ABO Rh A Positive [facility] Maribel, indirect Negative [facility] Blood 06/09/2022 7:57 AM CDT 06/09/2022 8:20 AM CDT Narrative [facility] - 06/09/2022 9:11 AM CDT Has the patient had Daratumumab or Isatuximab in the past 6 months?->Unknown Catherine Adams MD LAB BLOOD BANK TEST ORDERAB LES Final Result Performing Organization Address [facility] [place] [address] * (ABNORMAL) Hemoglobin total, pulmonary artery (06/09/2022 7:57 AM CDT) Hemoglobin total, PA 8.7(L) 13.0 - 17.5 g/dL [facility] Blood 06/09/2022 7:57 AM CDT 06/09/2022 8:43 AM CDT Marcelina Lo PRODUCT MANAGEMENT SPECIALIST LAB BLOOD ORDERABLES Final Re sult Performing Organization Address [facility] [place] [address] * Oxyhemoglobin, pulmonary artery (06/09/2022 7:57 AM CDT) Oxyhemoglobin, PA 55.8 % [facility] Comment: Interpretive Data No reference range established. Current interpretive data was last revised 2019. Blood 06/09/2022 7:57 AM CDT 06/09/2022 8:43 AM CDT Marcelina Lo PRODUCT MANAGEMENT SPECIALIST LAB BLOOD ORDERABLES Final Re sult Performing Organization Address [facility] [place] [address] * (ABNORMAL) CBC with auto differential (06/09/2022 7:57 AM CDT) WBC 8.6 3.8 - 9.9 K/cumm [facility] Hgb 8.1(L) 13.0 - 17.5 g/dL [facility] Hct 23.5(L) 38.9 - 50.3 % [facility] Plt 179 150 - 400 K/cumm [facility] MPV 11.1 9.1 - 12.3 fL [facility] RBC 2.61(L) 4.30 - 5.80 M/cumm [facility] MCV 90.0 81.3 - 96.4 fL [facility] MCH 31.0 27.1 - 33.3 pg [facility] MCHC 34.5 32.3 - 35.7 g/dL [facility] RDW CV 13.4 11.1 - 14.9 % [facility] RDW SD 44.2 35.7 - 48.1 fL [facility] NRBC abs 0.00 0.00 - 0.01 K/cumm [facility] Blood 06/09/2022 7:57 AM CDT 06/09/2022 8:19 AM CDT us Marcelina Lo NP LAB BLOOD ORDERABLES Final Re sult [facility] [place] [address] * POCT glucose (06/09/2022 7:55 AM CDT) [facility] Glucose, POC 155 70 - 199 mg/dL [facility] Blood 06/09/2022 7:55 AM CDT 06/09/2022 7:55 AM CDT us Catherine Adams MD LAB POCT ORDERABLES - DEVIC E Final Result Performing Organization Address City/[facility]/ZIP Co de Phone Number [facility] Department [place] [address] * (ABNORMAL) aPTT (06/09/2022 5:24 AM CDT) aPTT 66(H) 27 - 37 sec [facility] Comment: Interpretive Data Therapeutic heparin range: 60.0 - 94.0 seconds. Based on correlation with therapeutic heparin activity range of 0.3-0.7 Units/mL. Current interpretive data was last revised on 2020. Blood 06/09/2022 5:24 AM CDT 06/09/2022 5:53 AM CDT Narrative [facility] - 06/09/2022 6:02 AM CDT Draw STAT [...] Ann Marie l Result Performing Organization Address [facility] de Phone Number [facility] [place] [address] * (ABNORMAL) Blood gas, arterial (06/09/2022 5:24 AM CDT) Pathologist [facility] pH, Art 7.44 7.35 - 7.45 [facility] PCO2, Arterial 38 35 - 45 mmHg [facility] PO2, Arterial 71(L) 83 - 108 mmHg [facility] HCO3 Art (Calculated) 26 20 - 30 mmol/L [facility] BE, art 2 mmol/L [facility] Comment: Interpretive Data No Reference Range Established Current Interpretive Data was last revised on 2017 O2 Sat Art (Measured) 94 90 - 95 % [facility] Blood 06/09/2022 5:24 AM CDT 06/09/2022 5:37 AM CDT us Marcelina Lo NP LAB BLOOD ORDERABLES Final Re sult Performing Organization Address [facility]/ZIP Co de Phone Number [facility] [place] [address] * XR Chest 1 View (06/09/2022 4:30 [...] diaphragm with tip not seen. Inferior approach [place]iv catheter has been retracted with the tip projecting over the main pulmonary artery. An Impella device is in place, unchanged. There is mild cardiomegaly, unchanged. There is moderate asymmetric left lung and right upper lobe pulmonary edema. Likely small left pleural effusion although the left costophrenic angle is partially off the [id number]. No right pleural effusion or pneumothorax. Second exam ??06/09/2022 7:57 AM The [place]-Liv catheter has been slightly advanced with tip [...] diaphragm with tip not seen. Inferior approach [place]Liv catheter has been retracted with the tip projecting over the main pulmonary artery. An Impella device is in place, unchanged. There is mild cardiomegaly, unchanged. There is moderate asymmetric left lung and right upper lobe pulmonary edema. Likely small left pleural effusion although the left costophrenic angle is partially off the [id number]. No right pleural effusion or pneumothorax. Second exam 06/09/2022 7:57 AM The [place]iv catheter has been slightly advanced with tip [...] WBC, ur 0-5 0 - 5 /HPF [facility] RBC, ur 6-10(A) 0 - 2 /HPF [facility] Hyaline casts, ur 1-5 0 - 10 /LPF [facility] Granular casts, ur 1-5(A) 0 - 0 /LPF [facility] Culture Reflex Comment Reflex conditions for urine culture (WBC >10) not met. [facility] Urine 06/09/2022 4:08 AM CDT 06/09/2022 4:16 AM CDT Catherine Adams MD LAB URINE ORDERABLES Final Result [facility] Department of Laboratories [place], [place] [id number] * (ABNORMAL) Urinalysis reflex to microscopic and culture Urine (06/09/2022 4:08 AM CDT) Color, ur Yellow Yellow [facility] Clarity, ur Clear Clear [facility] Specific gravity, ur 1.018 1.003 - 1.030 [facility] pH, urine 5.5 [facility] Protein, ur ql 1+(A) Negative [facility] Glucose, ur ql 4+(A) Negative [facility] Ketones, ur Negative Negative [facility] Bilirubin, ur Negative Negative [facility] Blood, ur 2+(A) Negative [facility] Urobilinogen, ur <2.0 <2.0 mg/dL [facility] Nitrite, ur Negative Negative [facility] Leukocyte esterase, ur Negative Negative [facility] UA reflex comment Reflex to microscopic UA will be performed. [facility] Urine 06/09/2022 4:08 AM CDT 06/09/2022 4:16 AM CDT Narrative [facility] - 06/09/2022 4:35 AM CDT ?? Urine pH is affected by diet, medications, systemic acid-base disturbances, and renal tubular function. ??pH may affect urinary stone formation. ??For example, urine pH below 6.0 may help reduce the tendency for calcium phosphate stones and pH greater than 6.0 may reduce the tendency for uric acid stone formation. Source: [employer]. Last revised 08-31-2017 Catherine Adams MD LAB MICROBIOLOGY - GENERAL ORDERABLES Final Result Performing Organization Address City/[facility]/ZIP Co de Phone Number [facility] [place] [address] * POCT glucose (06/09/2022 4:06 AM CDT) Glucose, POC 147 70 - 199 mg/dL [facility] Blood 06/09/2022 4:06 AM CDT 06/09/2022 4:06 AM CDT Catherine Adams MD LAB POCT ORDERABLES - DEVIC E Final Result Performing Organization Address [facility] Co de Phone Number [facility] Department [place] [address] * (ABNORMAL) Hemoglobin and hematocrit (06/08/2022 11:27 PM CDT) Pathologist [facility] Hgb 7.5(L) 13.0 - 17.5 g/dL [facility] Hct 22.0(L) 38.9 - 50.3 % [facility] Blood 06/08/2022 11:2 7 PM CDT 06/08/2022 11:40 PM CDT Meme Castro MD LAB BLOOD ORDERABLES Final Result Performing Organization Address [facility] Co de Phone Number [facility] [place] [address] * (ABNORMAL) Hemoglobin total, pulmonary artery (06/08/2022 11:27 PM CDT) [facility] Hemoglobin total, PA 8.1(L) 13.0 - 17.5 g/dL [facility] Blood 06/08/2022 11:2 7 PM CDT 06/08/2022 11:36 PM CDT Marcelina Lo PRODUCT MANAGEMENT SPECIALIST LAB BLOOD ORDERABLES Final Re sult Performing Organization Address [facility] de Phone Number [place] [address] * Oxyhemoglobin, pulmonary artery (06/08/2022 11:27 PM CDT) Pathologist [facility] Oxyhemoglobin, PA 57.4 % [facility] Comment: Interpretive Data No reference range established. Current interpretive data was last revised 2019. Blood 06/08/2022 11:2 7 PM CDT 06/08/2022 11:36 PM CDT Marcelina Lo PRODUCT MANAGEMENT SPECIALIST LAB BLOOD ORDERABLES Final Re sult Performing Organization Address [facility] Co de Phone Number [facility] [place] [place] [address] * (ABNORMAL) aPTT (06/08/2022 11:27 PM CDT) [facility] aPTT 44(H) 27 - 37 sec [facility] Comment: Interpretive Data Therapeutic heparin range: 60.0 - 94.0 seconds. Based on correlation with therapeutic heparin activity range of 0.3-0.7 Units/mL. Current interpretive data was last revised on 2020. Blood 06/08/2022 11:2 7 PM CDT 06/09/2022 12:13 AM CDT Narrative [facility] - 06/09/2022 12:22 AM CDT Draw STAT [...] LAB BLOOD ORDERABLES Ann Marie l Result [facility] [place] [address] * POCT glucose (06/08/2022 11:25 PM CDT) [facility] Glucose, POC 156 70 - 199 mg/dL [facility] Blood 06/08/2022 11:2 5 PM CDT 06/08/2022 11:25 PM CDT Catherine Adams MD LAB POCT ORDERABLES - DEVIC E Final Result [facility] [place] [address] * Phosphorus (06/08/2022 8:08 PM CDT) [facility] Phosphorus, pl 3.7 2.3 - 4.5 mg/dL [facility] Blood 06/08/2022 8:08 PM CDT 06/08/2022 8:31 PM CDT Catherine Adams MD LAB BLOOD ORDERABLES Final Result Performing Organization Address City/[facility] Co de Phone Number [facility] [place] [address] * Magnesium (06/08/2022 8:08 PM CDT) [facility] Magnesium 2.4 1.4 - 2.5 mg/dL [facility] Blood 06/08/2022 8:08 PM CDT 06/08/2022 8:[address] [facility] Catherine Adams MD LAB BLOOD ORDERABLES Final Result Performing Organization Address [facility] de Phone Number [facility] Department [place] [address] * (ABNORMAL) eGFR (06/08/2022 8:08 PM CDT) [facility] eGFR 14(L) 90 - 130 mL/min/1. 73 m2 [facility] Comment: Interpretive Data Reference Interval [...] Ann Marie l Result Performing Organization Address [facility] Co de Phone Number [facility] [place] [address] * (ABNORMAL) Haptoglobin (06/08/2022 8:08 PM CDT) Haptoglobin 219.0(H) 30.0 - 200.0 mg/dL [facility] Blood 06/08/2022 8:08 PM CDT 06/08/2022 8:31 PM CDT Catherine Adams MD LAB BLOOD ORDERABLES Final Result Performing Organization Address [facility] Co de Phone Number [facility] [place] [address] * Lipase (06/08/2022 8:08 PM CDT) Lipase 11 10 - 99 Units/L [facility] Blood 06/08/2022 8:08 PM CDT 06/08/2022 8:31 PM CDT Catherine Adams MD LAB BLOOD ORDERABLES Final Result Performing Organization Address City/[facility] Co de Phone Number [facility] Department [place] [address] * (ABNORMAL) Differential, auto (06/08/2022 8:08 PM CDT) Neutrophil abs 7.0(H) 1.7 - 6.5 K/cumm [facility] Imm gran abs 0.4(H) 0.0 - 0.1 K/cumm [facility] Lymphocyte abs 0.9 0.8 - 3.3 K/cumm [facility] Monocyte abs 0.9(H) 0.2 - 0.8 K/cumm [facility] Eosinophil abs 0.1 0.0 - 0.5 K/cumm [facility] Basophil abs 0.0 0.0 - 0.1 K/cumm [facility] Neutrophil pct 75.3 % [facility] Comment: Interpretive Data Percent cell count reference ranges are not reported, since discordance with absolute values may lead to misinterpretation of CBC data. Current Interpretive Data was last revised on 2017. Imm gran pct 3.8 % [facility] Comment: Interpretive Data Percent cell count reference ranges are not reported, since discordance with absolute values may lead to misinterpretation of CBC data. Current Interpretive Data was last revised on 2017. Lymphocyte pct 10.0 % [facility] Comment: Interpretive Data Percent cell count reference ranges are not reported, since discordance with absolute values may lead to misinterpretation of CBC data. Current Interpretive Data was last revised on 2017. Monocyte pct 9.8 % [facility] Comment: Interpretive Data Percent cell count reference ranges are not reported, since discordance with absolute values may lead to misinterpretation of CBC data. Current Interpretive Data was last revised on 2017. Eosinophil pct 1.0 % [facility] Comment: Interpretive Data Percent cell count reference ranges are not reported, since discordance with absolute values may lead to misinterpretation of CBC data. Current Interpretive Data was last revised on 2017. Basophil pct 0.1 % [facility] Comment: Interpretive Data Percent cell count reference ranges are not reported, since discordance with absolute values may lead to misinterpretation of CBC data. Current Interpretive Data was last revised on 2017. Blood 06/08/2022 8:08 PM CDT 06/08/2022 8:30 PM CDT us Catherine Adams MD LAB BLOOD ORDERABLES Final Result [facility] [place] [address] * (ABNORMAL) Blood gas, arterial (06/08/2022 8:08 PM CDT) pH, Art 7.44 7.35 - 7.45 [facility] PCO2, Arterial 36 35 - 45 mmHg [facility] PO2, Arterial 140(H) 83 - 108 mmHg [facility] HCO3 Art (Calculated) 25 20 - 30 mmol/L [facility] BE, art 0 mmol/L [facility] Comment: Interpretive Data No Reference Range Established Current Interpretive Data was last revised on 2017 O2 Sat Art (Measured) 99(H) 90 - 95 % [facility] Blood 06/08/2022 8:08 PM CDT 06/08/2022 8:15 PM CDT us Marcelina Lo PRODUCT MANAGEMENT SPECIALIST LAB BLOOD ORDERABLES Final Re sult Performing Organization Address City/[facility]/ZIP Co de Phone Number [facility] [place] [place] [address] * (ABNORMAL) Hemoglobin total, pulmonary artery (06/08/2022 8:08 PM CDT) Hemoglobin total, PA 8.7(L) 13.0 - 17.5 g/dL [facility] Blood 06/08/2022 8:08 PM CDT 06/08/2022 8:15 PM CDT Marcelina Lo PRODUCT MANAGEMENT SPECIALIST LAB BLOOD ORDERABLES Final Re sult [facility] [place] [address] * Oxyhemoglobin, pulmonary artery (06/08/2022 8:08 PM CDT) [facility] Oxyhemoglobin, PA 69.9 % [facility] Comment: Interpretive Data No reference range established. Current interpretive data was last revised 2019. Blood 06/08/2022 8:08 PM CDT 06/08/2022 8:15 PM CDT Marcelina Lo PRODUCT MANAGEMENT SPECIALIST LAB BLOOD ORDERABLES Final Re sult [facility] Department [place] [address] * Respiratory pathogen panel Nasopharyngeal (06/08/2022 8:08 PM CDT) [facility] Influenza A RNA Not Detected Not Detected [facility] Influenza B RNA Not Detected Not Detected [facility] RSV RNA Not Detected Not Detected [facility] COVID-19 RNA Not Detected Not Detected [facility] Coronavirus 229E RNA Not Detected Not Detected [facility] Coronavirus HKU1 RNA Not Detected Not Detected [facility] Coronavirus NL63 RNA Not Detected Not Detected [facility] Coronavirus OC43 RNA Not Detected Not Detected [facility] Adenovirus DNA Not Detected Not Detected [facility] Metapneumovirus RNA Not Detected Not Detected [facility] Rhinovirus/Enterov irus RNA Not Detected Not Detected [facility] Parainfluenza 1 RNA Not Detected Not Detected [facility] Parainfluenza 2 RNA Not Detected Not Detected [facility] Parainfluenza 3 RNA Not Detected Not Detected [facility] Parainfluenza 4 RNA Not Detected Not Detected [facility] B. pertussis DNA Not Detected Not Detected [facility] B. parapertussis DNA Not Detected Not Detected [facility] C. pneumoniae DNA Not Detected Not Detected [facility] M. pneumoniae DNA Not Detected Not Detected [facility] Nasopharyngeal 06/08/2022 8: 08 PM CDT 06/08/2022 9:19 PM CDT Narrative [facility] - 06/08/2022 10:13 PM CDT Previously covid negative Is the Patient experiencing symptoms consistent with COVID?->Unknown Reason for testing?->Patient history unknown Surveillance testing for transplant patient?->No ??Interpretive Data [employer] Respiratory Panel (RP2.1) assay is a [...] assay has FDA clearance for testing of PRODUCT MANAGEMENT SPECIALIST swabs. ??The performance of additional specimen types has been assessed by the performing laboratory. ??The performance characteristics of this assay have been determined by [facility] Molecular Infectious Disease [facility]. Current interpretive data was last revised on 22. us Catherine Adams MD LAB MICROBIOLOGY - GENERAL ORDERABLES Final Result Performing Organization Address City/[facility] Co de Phone Number [facility] Department [place] [address] * Beta-hydroxybutyrate (06/08/2022 8:08 PM CDT) Pathologist [facility] Beta-Hydroxybut yrate 0.3 0.0 - 0.5 mmol/L [facility] Blood 06/08/2022 8:08 PM CDT 06/08/2022 8:15 PM CDT us Marcelina Lo NP LAB BLOOD ORDERABLES Final Re sult Performing Organization Address [facility] Co de Phone Number [facility] Department [place] [address] * (ABNORMAL) Lactate dehydrogenase (LD) (06/08/2022 8:08 PM CDT) [facility] Lactate dehydrogenase (LDH) 444(H) 100 - 250 Units/L [facility] Blood 06/08/2022 8:08 PM CDT 06/08/2022 8:31 PM CDT us Catherine Adams MD LAB BLOOD ORDERABLES Final Result Performing Organization Address [facility] Co de Phone Number [facility] [place] [place] [address] * (ABNORMAL) Comprehensive metabolic panel (06/08/2022 8:08 PM CDT) Pathologist [facility] Sodium 136 135 - 145 mmol/L [facility] Potassium, pl 4.3 3.3 - 4.9 mmol/L [facility] Chloride 100 97 - 110 mmol/L [facility] CO2 27 22 - 32 mmol/L [facility] Anion gap 9 2 - 15 mmol/L [facility] BUN 42(H) 8 - 25 mg/dL [facility] Creatinine 4.73(H) 0.80 - 1.30 mg/dL [facility] Glucose 146 70 - 199 mg/dL [facility] Comment: Interpretive Data Fasting glucose [...] 2017. Calcium 8.4(L) 8.5 - 10.3 mg/dL [facility] Bilirubin, total 0.5 0.1 - 1.2 mg/dL [facility] Protein, pl 5.8(L) 6.5 - 8.5 g/dL [facility] Albumin 2.8(L) 3.5 - 5.0 g/dL [facility] Alk phos 153(H) 40 - 130 Units/L [facility] ALT 40 7 - 55 Units/L [facility] AST 137(H) 10 - 50 Units/L [facility] Blood 06/08/2022 8:08 PM CDT 06/08/2022 8:31 PM CDT Conrad Weston Chi, MD LAB BLOOD ORDERABLES Ann Marie kramer Result [facility] Department [place] [address] * (ABNORMAL) CBC with auto differential (06/08/2022 8:08 PM CDT) Pathologist [facility] WBC 9.3 3.8 - 9.9 K/cumm [facility] Hgb 6.9(L) 13.0 - 17.5 g/dL [facility] Hct 19.9(L) 38.9 - 50.3 % [facility] Plt 207 150 - 400 K/cumm [facility] MPV 11.2 9.1 - 12.3 fL [facility] RBC 2.20(L) 4.30 - 5.80 M/cumm [facility] MCV 90.5 81.3 - 96.4 fL [facility] MCH 31.4 27.1 - 33.3 pg [facility] MCHC 34.7 32.3 - 35.7 g/dL [facility] RDW CV 13.5 11.1 - 14.9 % [facility] RDW SD 44.4 35.7 - 48.1 fL [facility] NRBC abs 0.00 0.00 - 0.01 K/cumm [facility] Blood 06/08/2022 8:08 PM CDT 06/08/2022 8:30 PM CDT us Marcelina Lo NP LAB BLOOD ORDERABLES Final Re sult Performing Organization Address City/[facility]/ZIP Co de Phone Number [facility] Department [place] [address] * POCT glucose (06/08/2022 8:04 PM CDT) Glucose, POC 153 70 - 199 mg/dL [facility] Blood 06/08/2022 8:04 PM CDT 06/08/2022 8:04 PM CDT us Catherine Adams MD LAB POCT ORDERABLES - DEVIC E Final Result [facility] Department [place] [address] * POCT glucose (06/08/2022 8:03 PM CDT) Glucose, POC 162 70 - 199 mg/dL [facility] Blood 06/08/2022 8:03 PM CDT 06/08/2022 8:03 PM CDT Catherine Adams MD LAB POCT ORDERABLES - DEVIC E Final Result Performing Organization Address [facility] Network/[facility] Co de Phone Number [facility] [place] [address] * POCT glucose (06/08/2022 4:20 PM CDT) Glucose, POC 135 70 - 199 mg/dL [facility] Blood 06/08/2022 4:20 PM CDT 06/08/2022 4:20 PM CDT Catherine Adams MD LAB POCT ORDERABLES - DEVIC E Final Result Performing Organization Address [facility] [place] [address] * Lactate, whole blood (06/08/2022 4:20 PM CDT) Lactate, bld 1.2 0.7 - 2.0 mmol/L [facility] Blood 06/08/2022 4:20 PM CDT 06/08/2022 4:44 PM CDT Marcelina Lo NP LAB BLOOD ORDERABLES Final Re sult Performing Organization Address [facility] Co de Phone Number [facility] [place] [address] * (ABNORMAL) aPTT (06/08/2022 4:20 PM CDT) aPTT 25(L) 27 - 37 sec [facility] Comment: Interpretive Data Therapeutic heparin range: 60.0 - 94.0 seconds. Based on correlation with therapeutic heparin activity range of 0.3-0.7 Units/mL. Current interpretive data was last revised on 2020. Blood 06/08/2022 4:20 PM CDT 06/08/2022 4:56 PM CDT Narrative [facility] - 06/08/2022 5:12 PM CDT Draw STAT [...] Ann Marie l Result Performing Organization Address City/[facility]/ZIP Co de Phone Number [facility] Department [place] [address] * (ABNORMAL) Hemoglobin total, pulmonary artery (06/08/2022 4:20 PM CDT) Hemoglobin total, PA 8.4(L) 13.0 - 17.5 g/dL [facility] Blood 06/08/2022 4:20 PM CDT 06/08/2022 4:44 PM CDT us Marcelina Lo NP LAB BLOOD ORDERABLES Final Re sult Performing Organization Address [facility] Co de Phone Number [facility] [place] [place] [address] * (ABNORMAL) Blood gas, arterial (06/08/2022 4:20 PM CDT) pH, Art 7.44 7.35 - 7.45 [facility] PCO2, Arterial 36 35 - 45 mmHg [facility] PO2, Arterial 156(H) 83 - 108 mmHg [facility] HCO3 Art (Calculated) 25 20 - 30 mmol/L [facility] BE, art 0 mmol/L [facility] Comment: Interpretive Data No Reference Range Established Current Interpretive Data was last revised on 2017 O2 Sat Art (Measured) 98(H) 90 - 95 % [facility] Blood 06/08/2022 4:20 PM CDT 06/08/2022 4:44 PM CDT Marcelina Lo PRODUCT MANAGEMENT SPECIALIST LAB BLOOD ORDERABLES Final Re sult Performing Organization Address [facility] Co de Phone Number [facility] [place] [place] [address] * Oxyhemoglobin, pulmonary artery (06/08/2022 4:20 PM CDT) Oxyhemoglobin, PA 63.1 % [facility] Comment: Interpretive Data No reference range established. Current interpretive data was last revised 2019. Blood 06/08/2022 4:20 PM CDT 06/08/2022 4:44 PM CDT Marcelina Lo PRODUCT MANAGEMENT SPECIALIST LAB BLOOD ORDERABLES Final Re sult Performing Organization Address [facility] de Phone Number [facility] [place] [address] * TRANSTHORACIC ECHO (TTE) COMPLETE W DOPPLER/CF W CONTRAST (06/08/2022 2:50 PM CDT) Pathologist [facility] LV EF 56 % CARDIOREPORT Anatomical Region Laterality Modality Ultrasound 06/08/2022 12:3 0 PM CDT Narrative 06/08/2022 4:00 PM CDT Patient name: Adelia Garvin Date of test: 06/08/2022 Type of test: TTE w/Doppler Hospital #: [id number] Date of : 1970 (M) [facility] [employer] [facility] Manager: Elli Larsen RDCS Referring Physician: CATHERINE ADAMS MD Contrast Agent: Contrast Administered by: Supervised/Interpreted by: Baldomero Foster MD Diagnosis: Location: [facility] Reason for test: HF with impella MV [...] 2=Hypo 3=Akinetic 4=Dyskin./Aneurysm 0=Not visualized) Parasternal Long [place]:MAS=2 BAS=1 MIL=1 IVETH=1 Parasternal Short [place]:MAS=2 MIS=1 MS=1 MIL=1 MAL=2 MA=1 Apical 4 Chambers:=1 MIS=1 BIS=1 BAL=1 MAL=2 AL=2 AC=2 Apical 2 Chambers:AI=1 MS=1 BI=1 BA=1 MA=1 AA=1 AC=2 LV Global [...] in anterior wall and anterior septem sugegsting CAD/MS in the LAD territory. LVEF ??is in [...] MD By signing this report, the attending proof carrier certifies that he or she has personally supervised and interpreted the echocardiogram and has reviewed and or edited and agrees with the written comments contained within the report. Procedure Note Baldomero Foster MD - 06/08/2022 Patient name: Adelia Garvin Date of test: 06/08/2022 Type of test: TTE w/Doppler [facility] #: 0 Date of : 1970 (M) [facility] Manager: Elli Larsen [facility] Referring Physician: CATHERINE ADAMS MD Contrast Agent: Contrast Administered by: Supervised/Interpreted by: Baldomero Foster MD Diagnosis: Location: [facility] Reason for test: HF with impella MV [...] 2=Hypo 3=Akinetic 4=Dyskin./Aneurysm 0=Not visualized) Parasternal Long [place]:MAS=2 BAS=1 MIL=1 IVETH=1 Parasternal Short [place]:MAS=2 MIS=1 MS=1 MIL=1 MAL=2 MA=1 Apical 4 Chambers:=1 MIS=1 BIS=1 BAL=1 MAL=2 AL=2 AC=2 Apical 2 Chambers:AI=1 MS=1 BI=1 BA=1 MA=1 AA=1 AC=2 LV Global [...] in anterior wall and anterior septem sugegsting CAD/MS in the LAD territory. LVEF is in [...] MD By signing this report, the attending proof carrier certifies that he or she has personally [...] vena cava. There is an inferior approach [place]-Liv catheter with tip overlying the right main pulmonary artery. An Impella device is present. A gastric tube courses below the inferior margin of the study. The inferior mediastinum and the entire left hemidiaphragm are excluded from the [id number]. The imaged cardiomediastinal silhouette appears stable. There [...] vena cava. There is an inferior approach [place]-Liv catheter with tip overlying the right main pulmonary artery. An Impella device is present. A gastric tube courses below the inferior margin of the study. The inferior mediastinum and the entire left hemidiaphragm are excluded from the [id number]. The imaged cardiomediastinal silhouette appears stable. There [...] Potassium, whole blood (06/08/2022 11:49 AM CDT) [facility] Potassium, bld 4.1 3.3 - 4.9 mmol/L [facility] Blood 06/08/2022 11:4 9 AM CDT 06/08/2022 12:18 PM CDT Marcelina Lo PRODUCT MANAGEMENT SPECIALIST LAB BLOOD ORDERABLES Final Re sult Performing Organization Address City/[facility]/ZIP Co de Phone Number [facility] [place] [address] * (ABNORMAL) Hemoglobin total, pulmonary artery (06/08/2022 11:49 AM CDT) [facility] Hemoglobin total, PA 8.4(L) 13.0 - 17.5 g/dL [facility] Blood 06/08/2022 11:4 9 AM CDT 06/08/2022 12:18 PM CDT Marcelina Lo PRODUCT MANAGEMENT SPECIALIST LAB BLOOD ORDERABLES Final Re sult [facility] Department [place] [address] * Oxyhemoglobin, pulmonary artery (06/08/2022 11:49 AM CDT) Oxyhemoglobin, PA 63.8 % [facility] Comment: Interpretive Data No reference range established. Current interpretive data was last revised 2019. Blood 06/08/2022 11:4 9 AM CDT 06/08/2022 12:18 PM CDT Marcelina Lo PRODUCT MANAGEMENT SPECIALIST LAB BLOOD ORDERABLES Final Re sult Performing Organization Address [facility] Co de Phone Number [facility] [place] [address] * POCT glucose (06/08/2022 11:46 AM CDT) Glucose, POC 140 70 - 199 mg/dL [facility] Blood 06/08/2022 11:4 6 AM CDT 06/08/2022 11:[address] [facility] Catherine Adams MD LAB POCT ORDERABLES - DEVIC E Final Result Performing Organization Address [facility] de Phone Number [facility] [place] [place] [address] * (ABNORMAL) Blood gas, arterial (06/08/2022 10:44 AM CDT) pH, Art 7.44 7.35 - 7.45 [facility] PCO2, Arterial 34(L) 35 - 45 mmHg [facility] PO2, Arterial 108 83 - 108 mmHg [facility] HCO3 Art (Calculated) 24 20 - 30 mmol/L [facility] BE, art 0 mmol/L [facility] Comment: Interpretive Data No Reference Range Established Current Interpretive Data was last revised on 2017 O2 Sat Art (Measured) 98(H) 90 - 95 % [facility] Blood 06/08/2022 10:4 4 AM CDT 06/08/2022 10:[address] [facility] Marcelina Lo PRODUCT MANAGEMENT SPECIALIST LAB BLOOD ORDERABLES Final Re sult Performing Organization Address [facility]/ZIP Co de Phone Number [facility] Department [place] [address] * POCT glucose (06/08/2022 8:31 AM CDT) Glucose, POC 160 70 - 199 mg/dL [facility] Blood 06/08/2022 8:31 AM CDT 06/08/2022 8:31 AM CDT us Catherine Adams MD LAB POCT ORDERABLES - DEVIC E Final Result Performing Organization Address [facility] de Phone Number [facility] [place] [place] [address] * (ABNORMAL) Blood gas, arterial (06/08/2022 7:57 AM CDT) [facility] pH, Art 7.40 7.35 - 7.45 [facility] PCO2, Arterial 38 35 - 45 mmHg [facility] PO2, Arterial 99 83 - 108 mmHg [facility] HCO3 Art (Calculated) 25 20 - 30 mmol/L [facility] BE, art 0 mmol/L [facility] Comment: Interpretive Data No Reference Range Established Current Interpretive Data was last revised on 2017 O2 Sat Art (Measured) 97(H) 90 - 95 % [facility] Blood 06/08/2022 7:57 AM CDT 06/08/2022 8:22 AM CDT us Marcelina Lo PRODUCT MANAGEMENT SPECIALIST LAB BLOOD ORDERABLES Final Re sult Performing Organization Address [facility] Co de Phone Number [facility] [place], [place] [id number] * (ABNORMAL) Hemoglobin total, pulmonary artery (06/08/2022 7:57 AM CDT) Hemoglobin total, PA 8.8(L) 13.0 - 17.5 g/dL [facility] Blood 06/08/2022 7:57 AM CDT 06/08/2022 8:22 AM CDT Marcelina Lo PRODUCT MANAGEMENT SPECIALIST LAB BLOOD ORDERABLES Final Re sult Performing Organization Address [facility] Co de Phone Number [facility] Department [place] [address] * Oxyhemoglobin, pulmonary artery (06/08/2022 7:57 AM CDT) Oxyhemoglobin, PA 65.7 % [facility] Comment: Interpretive Data No reference range established. Current interpretive data was last revised 2019. Blood 06/08/2022 7:57 AM CDT 06/08/2022 8:22 AM CDT Marcelina Lo PRODUCT MANAGEMENT SPECIALIST LAB BLOOD ORDERABLES Final Re sult Performing Organization Address [facility] de Phone Number [facility] Department [place] [address] * X-ray chest 1 view - Portable [...] Impella device. There is an inferior approach [place]-Liv catheter with tip overlying the proximal right [...] Impella device. There is an inferior approach [place]-Liv catheter with tip overlying the proximal right [...] Glucose, POC 157 70 - 199 mg/dL [facility] Blood 06/08/2022 6:29 AM CDT 06/08/2022 6:29 AM CDT Catherine Adams MD LAB POCT ORDERABLES - DEVIC E Final Result Performing Organization Address [facility] de Phone Number [facility] [place] [address] * POCT glucose (06/08/2022 5:26 AM CDT) Glucose, POC 121 70 - 199 mg/dL [facility] Blood 06/08/2022 5:26 AM CDT 06/08/2022 5:[address] [facility] Catherine Adams MD LAB POCT ORDERABLES - DEVIC E Final Result Performing Organization Address [facility] de Phone Number [facility] [place] [address] * POCT glucose (06/08/2022 4:16 AM CDT) [facility] Glucose, POC 111 70 - 199 mg/dL [facility] Blood 06/08/2022 4:16 AM CDT 06/08/2022 4:[address] [facility] Catherine Adams MD LAB POCT ORDERABLES - DEVIC E Final Result Performing Organization Address [facility] de Phone Number [facility] [place] [address] * (ABNORMAL) eGFR (06/08/2022 4:12 AM CDT) [facility] eGFR 8(L) 90 - 130 mL/min/1. 73 m2 [facility] Comment: Interpretive Data Reference Interval [...] 4:12 AM CDT 06/08/2022 4:38 AM CDT us Catherine Adams MD LAB BLOOD ORDERABLES Final Result Performing Organization Address [facility] de Phone Number [facility] Department [place] [address] * (ABNORMAL) Hemoglobin total, pulmonary artery (06/08/2022 4:12 AM CDT) Hemoglobin total, PA 8.6(L) 13.0 - 17.5 g/dL [facility] Blood 06/08/2022 4:12 AM CDT 06/08/2022 4:30 AM CDT us Marcelina Lo PRODUCT MANAGEMENT SPECIALIST LAB BLOOD ORDERABLES Final Re sult Performing Organization Address City/[facility] Co de Phone Number [facility] Department [place] [address] * (ABNORMAL) Blood gas, arterial (06/08/2022 4:12 AM CDT) Pathologist [facility] pH, Art 7.41 7.35 - 7.45 [facility] PCO2, Arterial 37 35 - 45 mmHg [facility] PO2, Arterial 57(L) 83 - 108 mmHg [facility] HCO3 Art (Calculated) 24 20 - 30 mmol/L [facility] BE, art -1 mmol/L [facility] Comment: Interpretive Data No Reference Range Established Current Interpretive Data was last revised on 2017 O2 Sat Art (Measured) 88(L) 90 - 95 % [facility] Blood 06/08/2022 4:12 AM CDT 06/08/2022 4:30 AM CDT us Marcelina Lo PRODUCT MANAGEMENT SPECIALIST LAB BLOOD ORDERABLES Final Re sult Performing Organization Address City/[facility]/ZIP Co de Phone Number [facility] [place] [address] * Oxyhemoglobin, pulmonary artery (06/08/2022 4:12 AM CDT) [facility] Oxyhemoglobin, PA 66.9 % [facility] Comment: Interpretive Data No reference range established. Current interpretive data was last revised 2019. Blood 06/08/2022 4:12 AM CDT 06/08/2022 4:30 AM CDT Marcelina Lo PRODUCT MANAGEMENT SPECIALIST LAB BLOOD ORDERABLES [place] [address] * Magnesium (06/08/2022 4:12 AM CDT) Pathologist [facility] Magnesium 2.3 1.4 - 2.5 mg/dL [facility] Blood 06/08/2022 4:12 AM CDT 06/08/2022 4:38 AM CDT Catherine Adams MD LAB BLOOD ORDERABLES Final Result [facility] Department [place] [address] * (ABNORMAL) Basic metabolic panel (06/08/2022 4:12 AM CDT) [facility] Sodium 135 135 - 145 mmol/L [facility] Potassium, pl 4.0 3.3 - 4.9 mmol/L [facility] Chloride 99 97 - 110 mmol/L [facility] CO2 26 22 - 32 mmol/L [facility] Anion gap 10 2 - 15 mmol/L [facility] BUN 67(H) 8 - 25 mg/dL [facility] Creatinine 7.65(H) 0.80 - 1.30 mg/dL [facility] Glucose 109 70 - 199 mg/dL [facility] Comment: Interpretive Data Fasting glucose [...] 2017. Calcium 8.2(L) 8.5 - 10.3 mg/dL [facility] Blood 06/08/2022 4:12 AM CDT 06/08/2022 4:38 AM CDT Catherine Adams MD LAB BLOOD ORDERABLES Final Result Performing Organization Address City/[facility]/ZIP Co de Phone Number [facility] Department [place] [address] * POCT glucose (06/08/2022 3:00 AM CDT) Glucose, POC 135 70 - 199 mg/dL [facility] Blood 06/08/2022 3:00 AM CDT 06/08/2022 3:00 AM CDT Catherine Adams MD LAB POCT ORDERABLES - DEVIC E Final Result [facility] [place] [address] * (ABNORMAL) Differential, auto (06/08/2022 2:14 AM CDT) Pathologist [facility] Neutrophil abs 8.2(H) 1.7 - 6.5 K/cumm [facility] Imm gran abs 0.4(H) 0.0 - 0.1 K/cumm [facility] Lymphocyte abs 0.5(L) 0.8 - 3.3 K/cumm [facility] Monocyte abs 1.0(H) 0.2 - 0.8 K/cumm [facility] Eosinophil abs 0.0 0.0 - 0.5 K/cumm [facility] Basophil abs 0.0 0.0 - 0.1 K/cumm [facility] Neutrophil pct 81.0 % [facility] Comment: Interpretive Data Percent cell count reference ranges are not reported, since discordance with absolute values may lead to misinterpretation of CBC data. Current Interpretive Data was last revised on 2017. Imm gran pct 3.8 % [facility] Comment: Interpretive Data Percent cell count reference ranges are not reported, since discordance with absolute values may lead to misinterpretation of CBC data. Current Interpretive Data was last revised on 2017. Lymphocyte pct 5.0 % [facility] Comment: Interpretive Data Percent cell count reference ranges are not reported, since discordance with absolute values may lead to misinterpretation of CBC data. Current Interpretive Data was last revised on 2017. Monocyte pct 10.1 % [facility] Comment: Interpretive Data Percent cell count reference ranges are not reported, since discordance with absolute values may lead to misinterpretation of CBC data. Current Interpretive Data was last revised on 2017. Eosinophil pct 0.0 % [facility] Comment: Interpretive Data Percent cell count reference ranges are not reported, since discordance with absolute values may lead to misinterpretation of CBC data. Current Interpretive Data was last revised on 2017. Basophil pct 0.1 % [facility] Comment: Interpretive Data Percent cell count reference ranges are not reported, since discordance with absolute values may lead to misinterpretation of CBC data. Current Interpretive Data was last revised on 2017. Blood 06/08/2022 2:14 AM CDT 06/08/2022 4:38 AM CDT Catherine Adams MD LAB BLOOD ORDERABLES Final Result Performing Organization Address [facility] Co de Phone Number [facility] Department [place] [address] * POCT glucose (06/08/2022 2:14 AM CDT) Glucose, POC 141 70 - 199 mg/dL [facility] Blood 06/08/2022 2:14 AM CDT 06/08/2022 2:14 AM CDT Catherine Adams MD LAB POCT ORDERABLES - DEVIC E Final Result Performing Organization Address City/[facility] Co de Phone Number [facility] Department [place] [address] * Potassium, whole blood (06/08/2022 2:14 AM CDT) Potassium, bld 4.0 3.3 - 4.9 mmol/L [facility] Blood 06/08/2022 2:14 AM CDT 06/08/2022 2:22 AM CDT Marcelina Lo PRODUCT MANAGEMENT SPECIALIST LAB BLOOD ORDERABLES Final Re sult Performing Organization Address [facility] Co de Phone Number [facility] [place] [address] * (ABNORMAL) Blood gas, arterial (06/08/2022 2:14 AM CDT) pH, Art 7.45 7.35 - 7.45 [facility] PCO2, Arterial 33(L) 35 - 45 mmHg [facility] PO2, Arterial 180(H) 83 - 108 mmHg [facility] HCO3 Art (Calculated) 24 20 - 30 mmol/L [facility] BE, art -1 mmol/L [facility] Comment: Interpretive Data No Reference Range Established Current Interpretive Data was last revised on 2017 O2 Sat Art (Measured) 98(H) 90 - 95 % [facility] Blood 06/08/2022 2:14 AM CDT 06/08/2022 2:22 AM CDT Marcelina Lo PRODUCT MANAGEMENT SPECIALIST LAB BLOOD ORDERABLES Final Re sult Performing Organization Address [facility] Co de Phone Number [facility] Department [place] [address] * (ABNORMAL) CBC with auto differential (06/08/2022 2:14 AM CDT) Pathologist [facility] WBC 10.1(H) 3.8 - 9.9 K/cumm [facility] Hgb 8.3(L) 13.0 - 17.5 g/dL [facility] Hct 23.1(L) 38.9 - 50.3 % [facility] Plt 218 150 - 400 K/cumm [facility] MPV 11.1 9.1 - 12.3 fL [facility] RBC 2.60(L) 4.30 - 5.80 M/cumm [facility] MCV 88.8 81.3 - 96.4 fL [facility] MCH 31.9 27.1 - 33.3 pg [facility] MCHC 35.9(H) 32.3 - 35.7 g/dL [facility] RDW CV 13.3 11.1 - 14.9 % [facility] RDW SD 43.1 35.7 - 48.1 fL [facility] NRBC abs 0.00 0.00 - 0.01 K/cumm [facility] Blood 06/08/2022 2:14 AM CDT 06/08/2022 4:38 AM CDT us Marcelina Lo PRODUCT MANAGEMENT SPECIALIST LAB BLOOD ORDERABLES Final Re sult Performing Organization Address City/[facility]/ZIP Co de Phone Number [facility] Department [place] [address] * POCT glucose (06/08/2022 1:13 AM CDT) Glucose, POC 151 70 - 199 mg/dL [facility] Blood 06/08/2022 1:13 AM CDT 06/08/2022 1:13 AM CDT us Catherine Adams MD LAB POCT ORDERABLES - DEVIC E Final Result Performing Organization Address [facility] Co de Phone Number [facility] Department [place] [address] * (ABNORMAL) Blood gas, arterial (06/08/2022 12:30 AM CDT) pH, Art 7.50(H) 7.35 - 7.45 [facility] PCO2, Arterial 28(L) 35 - 45 mmHg [facility] PO2, Arterial 144(H) 83 - 108 mmHg [facility] HCO3 Art (Calculated) 22 20 - 30 mmol/L [facility] BE, art 0 mmol/L [facility] Comment: Interpretive Data No Reference Range Established Current Interpretive Data was last revised on 2017 O2 Sat Art (Measured) 98(H) 90 - 95 % [facility] Blood 06/08/2022 12:3 0 AM CDT 06/08/2022 12:39 AM CDT us Marcelina Lo NP LAB BLOOD ORDERABLES Final Re sult Performing Organization Address City/[facility]/ZIP Co de Phone Number [facility] Department [place] [address] * (ABNORMAL) eGFR (06/08/2022 12:28 AM CDT) eGFR 7(L) 90 - 130 mL/min/1. 73 m2 [facility] Comment: Interpretive Data Reference Interval [...] Adams MD LAB BLOOD ORDERABLES Final Result [facility] [place] [address] * (ABNORMAL) Hemoglobin total, pulmonary artery (06/08/2022 12:28 AM CDT) Hemoglobin total, PA 9.0(L) 13.0 - 17.5 g/dL [facility] Blood 06/08/2022 12:2 8 AM CDT 06/08/2022 12:39 AM CDT Marcelina Lo PRODUCT MANAGEMENT SPECIALIST LAB BLOOD ORDERABLES Final Re sult Performing Organization Address City/[facility] Co de Phone Number [facility] [place] [address] * Oxyhemoglobin, pulmonary artery (06/08/2022 12:28 AM CDT) Oxyhemoglobin, PA 59.2 % [facility] Comment: Interpretive Data No reference range established. Current interpretive data was last revised 2019. Blood 06/08/2022 12:2 8 AM CDT 06/08/2022 12:39 AM CDT Marcelina Lo PRODUCT MANAGEMENT SPECIALIST LAB BLOOD ORDERABLES Final Re sult Performing Organization Address City/[facility]/ZIP Co de Phone Number [facility] [place] [address] * Potassium, whole blood (06/08/2022 12:28 AM CDT) Potassium, bld 3.5 3.3 - 4.9 mmol/L [facility] Blood 06/08/2022 12:2 8 AM CDT 06/08/2022 12:39 AM CDT Catherine Adams MD LAB BLOOD ORDERABLES Final Result [facility] [place] [address] * Magnesium (06/08/2022 12:28 AM CDT) [facility] Magnesium 2.2 1.4 - 2.5 mg/dL [facility] Blood 06/08/2022 12:2 8 AM CDT 06/08/2022 12:42 AM CDT Catherine Adams MD LAB BLOOD ORDERABLES Final Result Performing Organization Address [facility]/ZIP Co de Phone Number [facility] [place] [address] * Beta-hydroxybutyrate (06/08/2022 12:28 AM CDT) [facility] Beta-Hydroxybut yrate 0.1 0.0 - 0.5 mmol/L [facility] Blood 06/08/2022 12:2 8 AM CDT 06/08/2022 12:39 AM CDT Catherine Adams MD LAB BLOOD ORDERABLES Edited Result - Final Performing Organization Address [facility] de Phone Number [facility] Department [place] [address] * (ABNORMAL) Basic metabolic panel (06/08/2022 12:28 AM CDT) [facility] Sodium 135 135 - 145 mmol/L [facility] Potassium, pl 3.5 3.3 - 4.9 mmol/L [facility] Chloride 96(L) 97 - 110 mmol/L [facility] CO2 23 22 - 32 mmol/L [facility] Anion gap 16(H) 2 - 15 mmol/L [facility] BUN 69(H) 8 - 25 mg/dL [facility] Creatinine 8.46(H) 0.80 - 1.30 mg/dL [facility] Glucose 147 70 - 199 mg/dL [facility] Comment: Interpretive Data Fasting glucose [...] 2017. Calcium 7.8(L) 8.5 - 10.3 mg/dL [facility] Blood 06/08/2022 12:2 8 AM CDT 06/08/2022 12:42 AM CDT Catherine Adams MD LAB BLOOD ORDERABLES Final Result Performing Organization Address [facility] de Phone Number [facility] Department [place] [address] * POCT glucose (06/08/2022 12:09 AM CDT) Glucose, POC 169 70 - 199 mg/dL [facility] Blood 06/08/2022 12:0 9 AM CDT 06/08/2022 12:09 AM CDT Catherine Adams MD LAB POCT ORDERABLES - DEVIC E Final Result Performing Organization Address [facility] de Phone Number [facility] Department [place] [address] * (ABNORMAL) eGFR (06/07/2022 10:58 PM CDT) eGFR 7(L) 90 - 130 mL/min/1. 73 m2 [facility] Comment: Interpretive Data Reference Interval [...] BLOOD ORDERABLES Final Result Performing Organization Address City/[facility]/ZIP Co de Phone Number [facility] [place] [address] * (ABNORMAL) POCT glucose (06/07/2022 10:58 PM CDT) [facility] Glucose, POC 211(H) 70 - 199 mg/dL [facility] Blood 06/07/2022 10:5 8 PM CDT 06/07/2022 10:58 PM CDT Catherine Adams MD LAB POCT ORDERABLES - DEVIC E Final Result Performing Organization Address City/[facility]/ZIP Co de Phone Number [facility] Department [place] [address] * Lactate, whole blood (06/07/2022 10:58 PM CDT) Lactate, bld 1.8 0.7 - 2.0 mmol/L [facility] Blood 06/07/2022 10:5 8 PM CDT 06/07/2022 11:05 PM CDT Catherine Adams MD LAB BLOOD ORDERABLES Final Result [facility] [place] [address] * Potassium, whole blood (06/07/2022 10:58 PM CDT) [facility] Potassium, bld 3.4 3.3 - 4.9 mmol/L [facility] Blood 06/07/2022 10:5 8 PM CDT 06/07/2022 11:[address] [facility] Catherine Adams MD LAB BLOOD ORDERABLES Final Result Performing Organization Address [facility] de Phone Number [facility] Department [place] [address] * (ABNORMAL) Phosphorus (06/07/2022 10:58 PM CDT) Pathologist [facility] Phosphorus, pl 4.7(H) 2.3 - 4.5 mg/dL [facility] Comment:Reviewed Blood 06/07/2022 10:5 8 PM CDT 06/07/2022 11:20 PM CDT Catherine Adams MD LAB BLOOD ORDERABLES Final Result Performing Organization Address City/[facility] Co de Phone Number [facility] [place] [address] * Magnesium (06/07/2022 10:58 PM CDT) Pathologist [facility] Magnesium 2.2 1.4 - 2.5 mg/dL [facility] Blood 06/07/2022 10:5 8 PM CDT 06/07/2022 11:20 PM CDT Catherine Adams MD LAB BLOOD ORDERABLES Final Result [facility] Department [place] [address] * Beta-hydroxybutyrate (06/07/2022 10:58 PM CDT) [facility] Beta-Hydroxybut yrate 0.1 0.0 - 0.5 mmol/L [facility] Blood 06/07/2022 10:5 8 PM CDT 06/07/2022 11:05 PM CDT Catherine Adams MD LAB BLOOD ORDERABLES Final Result Performing Organization Address City/[facility] Co de Phone Number [facility] [place] [address] * (ABNORMAL) Basic metabolic panel (06/07/2022 10:58 PM CDT) [facility] Sodium 134(L) 135 - 145 mmol/L [facility] Potassium, pl 3.4 3.3 - 4.9 mmol/L [facility] Chloride 95(L) 97 - 110 mmol/L [facility] CO2 23 22 - 32 mmol/L [facility] Anion gap 16(H) 2 - 15 mmol/L [facility] BUN 75(H) 8 - 25 mg/dL [facility] Creatinine 8.92(H) 0.80 - 1.30 mg/dL [facility] Glucose 187 70 - 199 mg/dL [facility] Comment: Interpretive Data Fasting glucose [...] 2017. Calcium 8.1(L) 8.5 - 10.3 mg/dL [facility] Blood 06/07/2022 10:5 8 PM CDT 06/07/2022 11:20 PM CDT us Catherine Adams MD LAB BLOOD ORDERABLES Final Result [facility] Department [place] [address] * (ABNORMAL) Blood gas, arterial (06/07/2022 10:58 PM CDT) pH, Art 7.46(H) 7.35 - 7.45 [facility] PCO2, Arterial 31(L) 35 - 45 mmHg [facility] PO2, Arterial 73(L) 83 - 108 mmHg [facility] HCO3 Art (Calculated) 22 20 - 30 mmol/L [facility] BE, art -2 mmol/L [facility] Comment: Interpretive Data No Reference Range Established Current Interpretive Data was last revised on 2017 O2 Sat Art (Measured) 95 90 - 95 % [facility] Blood 06/07/2022 10:5 8 PM CDT 06/07/2022 11:05 PM CDT us Marcelina Lo NP LAB BLOOD ORDERABLES Final Re sult [facility] Department [place] [address] * AR ARTL CATHJ/CANNULJ MNTR/TRANSFUSION SPX PRQ (06/07/2022 10:17 PM CDT) Narrative Eric Reed MD - 06/07/2022 10:17 PM CDT Lavern Morrison MD ? 06/07/2022 10:29 PM Arterial Line Insertion Date/Time: 06/07/2022 10:17 PM Performed by: Lavern Morrison MD Authorized by: Lavern Morrison MD [place] Protocol: RN Notified of Procedure: yes ?? [...] matched to patient identification: n/a ?? Responsible democrat for transporting specimen(s) to lab determined: n/a ?? us Lavern Morrison MD IV THERAPY ORDERABLES Final Result * (ABNORMAL) POCT glucose (06/07/2022 9:58 PM CDT) Glucose, POC 249(H) 70 - 199 mg/dL [facility] Blood 06/07/2022 9:58 PM CDT 06/07/2022 9:58 PM CDT us Catherine Adams MD LAB POCT ORDERABLES - DEVIC E Final Result [facility] Department [place] [address] * XR Abdomen Ap 1 Vw (06/07/2022 [...] * Reticulocyte Count (06/07/2022 8:54 PM CDT) [facility] Retics, absolute 0.052 0.020 - 0.087 M/cumm [facility] Retics 2.2 0.4 - 2.9 % [facility] Reticulocyte Hgb 31.7 30.5 - 38.0 pg [facility] Blood 06/07/2022 8:54 PM CDT 06/07/2022 9:[address] [facility] Catherine Adams MD LAB BLOOD ORDERABLES Final Result Performing Organization Address [facility] Co de Phone Number [facility] [place] [address] * (ABNORMAL) Hemoglobin and hematocrit (06/07/2022 8:54 PM CDT) [facility] Hgb 7.5(L) 13.0 - 17.5 g/dL [facility] Comment:Hemoglobin delta due to apparent blood transfusion. Hct 20.9(L) 38.9 - 50.3 % [facility] Blood 06/07/2022 8:54 PM CDT 06/07/2022 9:47 PM CDT Catherine Adams MD LAB BLOOD ORDERABLES Final Result Performing Organization Address City/[facility]/ZIP Co de Phone Number [facility] Department of Immunetics [place], [place] [id number] * (ABNORMAL) POCT glucose (06/07/2022 8:50 PM CDT) Glucose, POC 304(H) 70 - 199 mg/dL [facility] Blood 06/07/2022 8:50 PM CDT 06/07/2022 8:50 PM CDT Catherine Adams MD LAB POCT ORDERABLES - DEVIC E Final Result Performing Organization Address City/[facility] Co de Phone Number [facility] [place] [address] * (ABNORMAL) Haptoglobin (06/07/2022 8:00 PM CDT) Haptoglobin 312.0(H) 30.0 - 200.0 mg/dL [facility] Blood 06/07/2022 8:00 PM CDT 06/07/2022 8:26 PM CDT Catherine Adams MD LAB BLOOD ORDERABLES Final Result Performing Organization Address [facility] de Phone Number [facility] Department [place] [address] * (ABNORMAL) Lactate dehydrogenase (LD) (06/07/2022 8:00 PM CDT) Lactate dehydrogenase (LDH) 335(H) 100 - 250 Units/L [facility] Blood 06/07/2022 8:00 PM CDT 06/07/2022 8:26 PM CDT Catherine Adams MD LAB BLOOD ORDERABLES Final Result Performing Organization Address City/[facility] Co de Phone Number [facility] [place] [address] * (ABNORMAL) Ferritin (06/07/2022 8:00 PM CDT) Ferritin 2,062(H) 30 - 400 ng/mL [facility] Blood 06/07/2022 8:00 PM CDT 06/07/2022 8:26 PM CDT Catherine Adams MD LAB BLOOD ORDERABLES Final Result [facility] [place] [address] * (ABNORMAL) Iron profile w/ IBC (06/07/2022 8:00 PM CDT) [facility] Iron 50 50 - 150 mcg/dL [facility] TIBC 130(L) 250 - 400 mcg/dL [facility] Transferrin saturation 38 20 - 50 % [facility] Blood 06/07/2022 8:00 PM CDT 06/07/2022 8:26 PM CDT Catherine Adams MD LAB BLOOD ORDERAB[place] [address] * Folate (06/07/2022 8:00 PM CDT) Pathologist [facility] Folic acid 8.7 >=5.0 ng/mL [facility] Blood 06/07/2022 8:00 PM CDT 06/07/2022 8:26 PM CDT Catherine Adams MD LAB BLOOD ORDERAB[place] [address] * Vitamin B12 (06/07/2022 8:00 PM CDT) Pathologist [facility] Vitamin B12 373 230 - 1,250 pg/mL [facility] Blood 06/07/2022 8:00 PM CDT 06/07/2022 8:26 PM CDT Catherine Adams MD LAB BLOOD ORDERABLES Final Result Performing Organization Address [facility] [place] [address] * Oxyhemoglobin, pulmonary artery (06/07/2022 7:57 PM CDT) Oxyhemoglobin, PA 57.3 % [facility] Comment: Interpretive Data No reference range established. Current interpretive data was last revised 2019. Blood 06/07/2022 7:57 PM CDT 06/07/2022 8:[address] [facility] Marcelina Lo PRODUCT MANAGEMENT SPECIALIST LAB BLOOD ORDERABLES Final Re sult Performing Organization Address [facility] [place] [address] * (ABNORMAL) Hemoglobin total, pulmonary artery (06/07/2022 7:57 PM CDT) Hemoglobin total, PA 8.7(L) 13.0 - 17.5 g/dL [facility] Blood 06/07/2022 7:57 PM CDT 06/07/2022 8:[address] [facility] Marcelina Lo PRODUCT MANAGEMENT SPECIALIST LAB BLOOD ORDERABLES Final Re sult Performing Organization Address [facility] [place] [address] * (ABNORMAL) aPTT (06/07/2022 7:57 PM CDT) aPTT 44(H) 27 - 37 sec [facility] Comment: Interpretive Data Therapeutic heparin range: 60.0 - 94.0 seconds. Based on correlation with therapeutic heparin activity range of 0.3-0.7 Units/mL. Current interpretive data was last revised on 2020. Blood 06/07/2022 7:57 PM CDT 06/07/2022 8:14 PM CDT Narrative [facility] - 06/07/2022 8:20 PM CDT Draw STAT [...] Ann Marie l Result Performing Organization Address [facility] Co de Phone Number [facility] Department [place] [address] * Potassium, whole blood (06/07/2022 7:57 PM CDT) Potassium, bld 3.3 3.3 - 4.9 mmol/L [facility] Blood 06/07/2022 7:57 PM CDT 06/07/2022 8:[address] [facility] Catherine Adams MD LAB BLOOD ORDERABLES Final Result Performing Organization Address [facility] de Phone Number [facility] Department [place] [address] * (ABNORMAL) POCT glucose (06/07/2022 7:51 PM CDT) Glucose, POC 325(H) 70 - 199 mg/dL [facility] Blood 06/07/2022 7:51 PM CDT 06/07/2022 7:51 PM CDT Catherine Adams MD LAB POCT ORDERABLES - DEVIC E Final Result Performing Organization Address [facility] Co de Phone Number [facility] Department [place] [address] * (ABNORMAL) Differential, auto (06/07/2022 7:42 PM CDT) Neutrophil abs 7.3(H) 1.7 - 6.5 K/cumm [facility] Imm gran abs 0.2(H) 0.0 - 0.1 K/cumm [facility] Lymphocyte abs 0.6(L) 0.8 - 3.3 K/cumm [facility] Monocyte abs 0.5 0.2 - 0.8 K/cumm [facility] Eosinophil abs 0.0 0.0 - 0.5 K/cumm [facility] Basophil abs 0.0 0.0 - 0.1 K/cumm [facility] Neutrophil pct 85.1 % [facility] Comment: Interpretive Data Percent cell count reference ranges are not reported, since discordance with absolute values may lead to misinterpretation of CBC data. Current Interpretive Data was last revised on 2017. Imm gran pct 2.4 % [facility] Comment: Interpretive Data Percent cell count reference ranges are not reported, since discordance with absolute values may lead to misinterpretation of CBC data. Current Interpretive Data was last revised on 2017. Lymphocyte pct 6.6 % [facility] Comment: Interpretive Data Percent cell count reference ranges are not reported, since discordance with absolute values may lead to misinterpretation of CBC data. Current Interpretive Data was last revised on 2017. Monocyte pct 5.8 % [facility] Comment: Interpretive Data Percent cell count reference ranges are not reported, since discordance with absolute values may lead to misinterpretation of CBC data. Current Interpretive Data was last revised on 2017. Eosinophil pct 0.0 % [facility] Comment: Interpretive Data Percent cell count reference ranges are not reported, since discordance with absolute values may lead to misinterpretation of CBC data. Current Interpretive Data was last revised on 2017. Basophil pct 0.1 % [facility] Comment: Interpretive Data Percent cell count reference ranges are not reported, since discordance with absolute values may lead to misinterpretation of CBC data. Current Interpretive Data was last revised on 2017. Blood 06/07/2022 7:42 PM CDT 06/07/2022 8:25 PM CDT Catherine Adams MD LAB BLOOD ORDERABLES Final Result Performing Organization Address [facility] Co de Phone Number [facility] Department [place] [address] * (ABNORMAL) CBC with auto differential (06/07/2022 7:42 PM CDT) [facility] WBC 8.6 3.8 - 9.9 K/cumm [facility] Hgb 4.3(C) 13.0 - 17.5 g/dL [facility] Comment:Critical result call ed to and read back by LAVERN MORRISON RN on 06 07 2022 at 2036 to Janis Melton. Hct 12.3(L) 38.9 - 50.3 % [facility] Plt 233 150 - 400 K/cumm [facility] MPV 11.5 9.1 - 12.3 fL [facility] RBC 1.38(L) 4.30 - 5.80 M/cumm [facility] MCV 89.1 81.3 - 96.4 fL [facility] MCH 31.2 27.1 - 33.3 pg [facility] MCHC 35.0 32.3 - 35.7 g/dL [facility] RDW CV 13.3 11.1 - 14.9 % [facility] RDW SD 43.5 35.7 - 48.1 fL [facility] NRBC abs 0.00 0.00 - 0.01 K/cumm [facility] Blood 06/07/2022 7:42 PM CDT 06/07/2022 8:25 PM CDT Catherine Adams MD LAB BLOOD ORDERABLES Final Result Performing Organization Address [facility] Co de Phone Number [facility] Department [place] [address] * (ABNORMAL) Beta-hydroxybutyrate (06/07/2022 6:24 PM CDT) Beta-Hydroxybut yrate 2.3(H) 0.0 - 0.5 mmol/L [facility] Blood 06/07/2022 6:24 PM CDT 06/07/2022 6:42 PM CDT Catherine Adams MD LAB BLOOD ORDERABLES Final Result [facility] Department [place] [address] * (ABNORMAL) Differential, auto (06/07/2022 6:24 PM CDT) Pathologist [facility] Neutrophil abs 6.5 1.7 - 6.5 K/cumm [facility] Imm gran abs 0.2(H) 0.0 - 0.1 K/cumm [facility] Lymphocyte abs 0.4(L) 0.8 - 3.3 K/cumm [facility] Monocyte abs 0.3 0.2 - 0.8 K/cumm [facility] Eosinophil abs 0.0 0.0 - 0.5 K/cumm [facility] Basophil abs 0.0 0.0 - 0.1 K/cumm [facility] Neutrophil pct 88.3 % [facility] Comment: Interpretive Data Percent cell count reference ranges are not reported, since discordance with absolute values may lead to misinterpretation of CBC data. Current Interpretive Data was last revised on 2017. Imm gran pct 2.0 % [facility] Comment: Interpretive Data Percent cell count reference ranges are not reported, since discordance with absolute values may lead to misinterpretation of CBC data. Current Interpretive Data was last revised on 2017. Lymphocyte pct 5.3 % [facility] Comment: Interpretive Data Percent cell count reference ranges are not reported, since discordance with absolute values may lead to misinterpretation of CBC data. Current Interpretive Data was last revised on 2017. Monocyte pct 4.4 % [facility] Comment: Interpretive Data Percent cell count reference ranges are not reported, since discordance with absolute values may lead to misinterpretation of CBC data. Current Interpretive Data was last revised on 2017. Eosinophil pct 0.0 % [facility] Comment: Interpretive Data Percent cell count reference ranges are not reported, since discordance with absolute values may lead to misinterpretation of CBC data. Current Interpretive Data was last revised on 2017. Basophil pct 0.0 % [facility] Comment: Interpretive Data Percent cell count reference ranges are not reported, since discordance with absolute values may lead to misinterpretation of CBC data. Current Interpretive Data was last revised on 2017. Blood 06/07/2022 6:24 PM CDT 06/07/2022 6:37 PM CDT Catherine Adams MD LAB BLOOD ORDERABLES Final Result [facility] Department [place] [address] * Blood culture Blood Wrist, right (06/07/2022 6:24 PM CDT) Report Final Report: No growth [facility] Blood (Wrist, right) 06/07/2022 6:24 PM CDT 06/07/2022 6:45 PM CDT Narrative [facility] - 06/12/2022 7:00 AM CDT From a [...] organism identification may be performed using the [employer] Gram-Positive Blood Culture Assay. This assay detects microbial DNA in positive blood culture broth via hybridization of target DNA to capture oligonucleotides on a microarray. This assay has been cleared by the [place] Food and Drug Administration and its performance characteristics have been verified by the [facility]biology [facility]. 5. ?For questions about this culture, contact the Microbiology Laboratory at [phone]. Interpretive data was last revised on 2020. Catherine Adams MD LAB MICROBIOLOGY - GENERAL ORDERABLES Final Result [facility] Department [place] [address] * Blood culture Blood Central venous catheter (06/07/2022 6:24 PM CDT) Report Final Report: No growth [facility] Blood (Central venous catheter) 06/07/2022 6:24 PM CDT 06/07/2022 6:50 PM CDT Luis APARICIO [facility] - 06/12/2022 7:00 AM CDT 1. ?Blood [...] performance characteristics have been verified by the [facility] Microbiology Laboratory. 5. ?For questions about this culture, contact the Microbiology Laboratory at [phone]. Interpretive data was last revised on 2020. Catherine Adams MD LAB MICROBIOLOGY - GENERAL ORDERABLES Final Result [facility] Department [place] [address] * (ABNORMAL) CBC with auto differential (06/07/2022 6:24 PM CDT) WBC 7.3 3.8 - 9.9 K/cumm [facility] Hgb 7.8(L) 13.0 - 17.5 g/dL [facility] Hct 22.1(L) 38.9 - 50.3 % [facility] Plt 194 150 - 400 K/cumm [facility] MPV 11.2 9.1 - 12.3 fL [facility] RBC 2.52(L) 4.30 - 5.80 M/cumm [facility] MCV 87.7 81.3 - 96.4 fL [facility] MCH 31.0 27.1 - 33.3 pg [facility] MCHC 35.3 32.3 - 35.7 g/dL [facility] RDW CV 13.2 11.1 - 14.9 % [facility] RDW SD 42.8 35.7 - 48.1 fL [facility] NRBC abs 0.00 0.00 - 0.01 K/cumm [facility] Blood 06/07/2022 6:24 PM CDT 06/07/2022 6:37 PM CDT Catherine Adams MD LAB BLOOD ORDERABLES Final Result Performing Organization Address City/[facility]/ZIP Co de Phone Number [facility] Department [place] [address] * XR Chest 1 View (06/07/2022 6:20 [...] Impella device. There is an inferior approach [place]-Liv catheter with tip overlying the proximal right [...] Impella device. There is an inferior approach [place]-Liv catheter with tip overlying the proximal right [...] CDT) pH, Art 7.46(H) 7.35 - 7.45 [facility] PCO2, Arterial 27(L) 35 - 45 mmHg [facility] PO2, Arterial 105 83 - 108 mmHg [facility] HCO3 Art (Calculated) 20 20 - 30 mmol/L [facility] BE, art -4 mmol/L [facility] Comment: Interpretive Data No Reference Range Established Current Interpretive Data was last revised on 2017 O2 Sat Art (Measured) 98(H) 90 - 95 % [facility] Blood 06/07/2022 5:20 PM CDT 06/07/2022 5:26 PM CDT Catherine Adams MD LAB BLOOD ORDERABLES Final Result [facility] Department [place] [address] * Critical result callback Cardio chemistry (06/07/2022 5:12 PM CDT) Date Notified [id number] [facility] Time Notified 1850 [facility] Test name Troponin [facility] Called/Read Back Anali APARICIO [facility] Credentials MD APARICIO [facility] Called By Usha APARICIO [facility] Blood 06/07/2022 5:12 PM CDT 06/07/2022 6:10 PM CDT Catherine Adams MD LAB BLOOD ORDERABLES Final Result Performing Organization Address [facility] Co de Phone Number [facility] Department [place] [address] * (ABNORMAL) Troponin I high-sensitivity (06/07/2022 5:12 PM CDT) Pathologist [facility] Trop I hs 2,704(C) <=35 ng/L [facility] Comment: Interpretive Data For further hscTnI resources including the diagnostic algorithm and an aid in interpretation, copy and paste this link: [email or web address]/[email or web address] Current Interpretive Data last revised 2020. Blood 06/07/2022 5:12 PM CDT 06/07/2022 5:29 PM CDT Catherine Adams MD LAB BLOOD ORDERABLES Final Result Performing Organization Address [facility] de Phone Number [facility] Department [place] [address] * Lactate (06/07/2022 5:12 PM CDT) [facility] Lactate 1.3 0.7 - 2.0 mmol/L [facility] Blood 06/07/2022 5:12 PM CDT 06/07/2022 5:22 PM CDT Catherine Adams MD LAB BLOOD ORDERABLES Final Result Performing Organization Address City/[facility] Co de Phone Number [place] [facility] Department [place] [address] * (ABNORMAL) eGFR (06/07/2022 5:08 PM CDT) [facility] eGFR 5(L) 90 - 130 mL/min/1. 73 m2 [facility] Comment: Interpretive Data Reference Interval [...] Conrad Weston Chi, MD LAB BLOOD ORDERABLES nAn Marie kramer Result [facility] Department [place] [address] * (ABNORMAL) Triglycerides (06/07/2022 5:08 PM CDT) Triglycerides 172(H) <=149 mg/dL [facility] Comment: Hemolyzed; result may be falsely elevated [...] PM CDT 06/07/2022 5:33 PM CDT us Catherine Adams MD LAB BLOOD ORDERABLES Final Result Performing Organization Address City/State/[facility] Co de Phone Number [facility] Department [place] [address] * (ABNORMAL) Hemoglobin total, central venous (06/07/2022 5:08 PM CDT) Hemoglobin total, CV 8.2(L) 13.0 - 17.5 g/dL [facility] Blood 06/07/2022 5:08 PM CDT 06/07/2022 5:22 PM CDT Narrative [facility] - 06/07/2022 5:25 PM CDT If using Miley Cardiac Output Method Result [facility] Catherine Adams MD LAB BLOOD ORDERABLES Final Result Performing Organization Address City/[facility] Co de Phone Number [facility] [place] [address] * Methemoglobin, central venous (06/07/2022 5:08 PM CDT) Methemoglobin, CV 2.1 % [facility] Comment: Interpretive Data No reference range established. Current interpretive data was last revised 2019. Blood 06/07/2022 5:08 PM CDT 06/07/2022 5:22 PM CDT Narrative [facility] - 06/07/2022 5:25 PM CDT If using Miley Cardiac Output Method Result [facility] Catherine Adams MD LAB BLOOD ORDERABLES Final Result Performing Organization Address [facility] [place] [address] * Carboxyhemoglobin, central venous (06/07/2022 5:08 PM CDT) Carboxyhemoglobin , CV 1.0 % [facility] Comment: Interpretive Data No reference range established. Current interpretive data was last revised 2019. Blood 06/07/2022 5:08 PM CDT 06/07/2022 5:22 PM CDT Narrative [facility] - 06/07/2022 5:26 PM CDT If using Miley Cardiac Output Method Catherine Adams MD LAB BLOOD ORDERABLES Final Result Performing Organization Address [facility] [place] [address] * Oxyhemoglobin, central venous (06/07/2022 5:08 PM CDT) Oxyhemoglobin, CV 66.6 % [facility] Comment: Interpretive Data No reference range established. Current interpretive data was last revised 2019. Blood 06/07/2022 5:08 PM CDT 06/07/2022 5:22 PM CDT Narrative [facility] - 06/07/2022 5:25 PM CDT If using Miley Cardiac Output Method Catherine Adams MD LAB BLOOD ORDERABLES Final Result Performing Organization Address City/[facility] Co de Phone Number [facility] Department [place] [address] * (ABNORMAL) Phosphorus (06/07/2022 5:08 PM CDT) [facility] Phosphorus, pl 7.2(H) 2.3 - 4.5 mg/dL [facility] Comment:Hemolyzed; result ma y be falsely elevated Blood 06/07/2022 5:08 PM CDT 06/07/2022 5:33 PM CDT Conrad Weston Chi, MD LAB BLOOD ORDERABLES Ann Marie l Result Performing Organization Address [facility] de Phone Number [facility] Department [place] [address] * Magnesium (06/07/2022 5:08 PM CDT) [facility] Magnesium 2.2 1.4 - 2.5 mg/dL [facility] Blood 06/07/2022 5:08 PM CDT 06/07/2022 5:33 PM CDT Conrad Weston Chi, MD LAB BLOOD ORDERABLES Ann Marie l Result Performing Organization Address [facility] Co de Phone Number [facility] Department [place] [address] * (ABNORMAL) Comprehensive metabolic panel (06/07/2022 5:08 PM CDT) Sodium 129(L) 135 - 145 mmol/L [facility] Potassium, pl See Comment 3.3 - 4.9 mmol/L [facility] Comment:Credited; Hemolyzed Specimen Chloride 87(L) 97 - 110 mmol/L [facility] CO2 21(L) 22 - 32 mmol/L [facility] Anion gap 21(H) 2 - 15 mmol/L [facility] BUN 80(H) 8 - 25 mg/dL [facility] Creatinine 10.36(H) 0.80 - 1.30 mg/dL [facility] Glucose 329(H) 70 - 199 mg/dL [facility] Comment: Interpretive Data Fasting glucose [...] 2017. Calcium 8.1(L) 8.5 - 10.3 mg/dL [facility] Bilirubin, total 0.8 0.1 - 1.2 mg/dL [facility] Protein, pl 6.0(L) 6.5 - 8.5 g/dL [facility] Albumin 2.5(L) 3.5 - 5.0 g/dL [facility] Alk phos 177(H) 40 - 130 Units/L [facility] Comment:Hemolyzed; result ma y be falsely decreased ALT See Comment 7 - 55 Units/L [facility] Comment:Credited; Hemolyzed Specimen AST See Comment 10 - 50 Units/L [facility] Comment:Credited; Hemolyzed Specimen Blood 06/07/2022 5:08 PM CDT 06/07/2022 5:33 PM CDT Conrad Weston Chi, MD LAB BLOOD ORDERABLES Ann Marie l Result Performing Organization Address [facility] Co de Phone Number [facility] [place] [address] * (ABNORMAL) POCT glucose (06/07/2022 5:00 PM CDT) Pathologist [facility] Glucose, POC 385(H) 70 - 199 mg/dL [facility] Glucose comment 1 Glu2: RN/MD Notified [facility] Blood 06/07/2022 5:00 PM CDT 06/07/2022 5:00 PM CDT Catherine Adams MD LAB POCT ORDERABLES - DEVIC E Final Result Performing Organization Address [facility] Co de Phone Number [facility] [place] [address] * ECG 12 lead (06/07/2022 4:59 PM CDT) [facility] Ventricular Rate EKG/Min 51 BPM [facility] Atrial Rate 51 BPM [facility] AR-Interval (MSEC) 212 ms [facility] QRS-Interval (MSEC) 130 ms [facility] QT-Interval (MSEC) 580 ms [facility] QTc 534 ms [facility] P [place] 69 degrees [facility] R [place] -38 degrees [facility] T [place] 95 degrees [facility] Diagnosis Sinus bradycardia with 1st degree A-V [...] BUSTOS M.D ([id number]) on 06/08/2022 9:42:26 AM [facility] 06/07/2022 4:59 PM CDT 06/08/2022 9:42 AM CDT us Catherine Adams MD ECG ORDERABLES Final Resul t [employer] [id number] * MARIELLA MAJOR CORONARY (06/07/2022 3:57 PM CDT) Anatomical Region Laterality Modality X-Ray Angiograph y Narrative 06/07/2022 4:24 PM CDT Cardiac catheterization Interventional fellow: ??Dr. Fernando Talavera HPI 51-year-old morbidly obese male with a history of end-stage renal disease on peritoneal dialysis, hypertension diabetes hyperlipidemia and recent non ST elevation MS now referred for complex PCI. ??Patient is followed at an outside hospital repetitive episodes of flash pulmonary edema/hypertensive urgency despite 3 medications. ??Recently underwent cardiac catheterization revealed a 90% ostial circumflex and a left-dominant circulation, 98% mid circumflex and a 70% om lesion. ??It is felt to be extremely high risk was transferred to [facility]. ?? He had hypoxemic respiratory arrest that [...] ??Using ultrasound directed micropuncture technique a 7 Sudanese 45 cm sheath placed in the right femoral artery over an [place] wire. ?? Subsequently, an 8 Sudanese sheath inserted into the left femoral vein with placement of a [place]-Liv catheter with the pulmonary artery. ??Heparin was administered to maintain ACT of 300 seconds or greater. ??Angioplasty was performed with a 7 [place]ese EBU 3.5 guide catheter, 0.014 in airplane pilot commercial 50 wire in the circumflex and a [...] artery sheath was exchanged for a 14 [place]ese Impella sheath. ??An Impella CP was placed into the left ventricle producing 3.2-3.4 liters/minute flow. ??The peel-away sheath was removed and the permanent sheath inserted. ??Two 6 Sudanese pro style were placed prior to sheath insertion with preserved sterilely. ?? Impella sheath was sewn in place as well as a [place]-Liv catheter. ?? Trialysis catheter was placed into [...] time, low range (06/07/2022 2:15 PM CDT) Pathologist [facility] ACT 226(H) 123 - 168 sec [facility] Blood 06/07/2022 2:15 PM CDT 06/07/2022 2:15 PM CDT Catherine Adams MD LAB POCT ORDERABLES - DEVIC E Final Result [facility] Department [place] [address] * (ABNORMAL) POC Blood Gas and Chemistries, Arterial - (06/07/2022 1:52 PM CDT) [facility] pH, Art POC 7.30(L) 7.35 - 7.45 [facility] pCO2, Art POC 42 35 - 45 mmHg [facility] pO2, Art POC 49(L) 83 - 108 mmHg [facility] Na, POC 132(L) 135 - 145 mmol/L [facility] K POC 4.1 3.3 - 4.9 mmol/L [facility] Comment: Interpretive Data This method is not able to assess for hemolysis, which may falsely increase potassium concentrations. If further testing is needed to evaluate this result, consider in-laboratory plasma potassium. Current Interpretive Data was last revised on 2022. Cl, POC 96(L) 97 - 110 mmol/L [facility] Ionized Ca, POC 4.62 4.50 - 5.10 mg/dL [facility] Glucose, POC 293(H) 70 - 199 mg/dL [facility] Lactate, POC 3.4(H) 0.7 - 2.2 mmol/L [facility] SO2 (uyen) arterial 78(L) 90 - 95 % [facility] Base excess, POC -5.5 mmol/L [facility] HCO3, Art POC 21 20 - 30 mmol/L [facility] Hct, POC 30.0(L) 41.4 - 51.6 % [facility] O2 Sat, Art POC (Calc) 80 % [facility] Total Hb, POC 9.9(L) 13.8 - 17.2 g/dL [facility] Blood 06/07/2022 1:52 PM CDT 06/07/2022 1:52 PM CDT Conrad Weston Chi, MD LAB POCT ORDERABLES - DEV ICE Final Result Performing Organization Address City/[facility]/ZIP Co de Phone Number [facility] Department [place] [address] * (ABNORMAL) POCT Activated clotting time, low range (06/07/2022 1:49 PM CDT) ACT 214(H) 123 - 168 sec [facility] Blood 06/07/2022 1:49 PM CDT 06/07/2022 1:49 PM CDT Catherine Adams MD LAB POCT ORDERABLES - DEVIC E Final Result Performing Organization Address City/[facility]/ZIP Co de Phone Number [facility] Department [place] [address] * (ABNORMAL) POC Blood Gas and Chemistries, Arterial - (06/07/2022 1:31 PM CDT) pH, Art POC 7.16(C) 7.35 - 7.45 [facility] pCO2, Art POC 53(H) 35 - 45 mmHg [facility] pO2, Art POC 41(L) 83 - 108 mmHg [facility] Na, POC 130(L) 135 - 145 mmol/L [facility] K POC 3.5 3.3 - 4.9 mmol/L [facility] Comment: Interpretive Data This method is not able to assess for hemolysis, which may falsely increase potassium concentrations. If further testing is needed to evaluate this result, consider in-laboratory plasma potassium. Current Interpretive Data was last revised on 2022. Cl, POC 93(L) 97 - 110 mmol/L [facility] Ionized Ca, POC 4.29(L) 4.50 - 5.10 mg/dL [facility] Glucose, POC 300(H) 70 - 199 mg/dL [facility] Lactate, POC 5.3(C) 0.7 - 2.2 mmol/L [facility] SO2 (uyen) arterial 59(C) 90 - 95 % [facility] Base excess, POC -10.1 mmol/L [facility] HCO3, Art POC 19(L) 20 - 30 mmol/L [facility] Hct, POC 31.0(L) 41.4 - 51.6 % [facility] O2 Sat, Art POC (Calc) 60 % [facility] Total Hb, POC 10.2(L) 13.8 - 17.2 g/dL [facility] Blood 06/07/2022 1:31 PM CDT 06/07/2022 1:31 PM CDT us Conrad Weston Chi, MD LAB POCT ORDERABLES - DEV ICE Final Result Performing Organization Address City/[facility]/ZIP Co de Phone Number [facility] [place] [address] * (ABNORMAL) POCT Activated clotting time, low range (06/07/2022 12:47 PM CDT) ACT 289(H) 123 - 168 sec [facility] Blood 06/07/2022 12:4 7 PM CDT 06/07/2022 12:47 PM CDT us Catherine Adams MD LAB POCT ORDERABLES - DEVIC E Final Result Performing Organization Address City/[facility]/ZIP Co de Phone Number [facility] Department [place] [address] * (ABNORMAL) POCT Activated clotting time, low range (06/07/2022 12:32 PM CDT) ACT 249(H) 123 - 168 sec [facility] Blood 06/07/2022 12:3 2 PM CDT 06/07/2022 12:32 PM CDT Catherine Adams MD LAB POCT ORDERABLES - DEVIC E Final Result Performing Organization Address City/[facility] Co de Phone Number [facility] Department [place] [address] * POCT glucose (06/07/2022 11:27 AM CDT) Pathologist [facility] Glucose, POC 179 70 - 199 mg/dL [facility] Blood 06/07/2022 11:2 7 AM CDT 06/07/2022 11:27 AM CDT us Conrad Weston Chi, MD LAB POCT ORDERABLES - DEV ICE Final Result Performing Organization Address [facility] de Phone Number [facility] Department [place] [address] * (ABNORMAL) aPTT (06/07/2022 9:59 AM CDT) [facility] aPTT 71(H) 27 - 37 sec [facility] Comment: Interpretive Data Therapeutic heparin range: 60.0 - 94.0 seconds. Based on correlation with therapeutic heparin activity range of 0.3-0.7 Units/mL. Current interpretive data was last revised on 2020. Blood 06/07/2022 9:59 AM CDT 06/07/2022 10:19 AM CDT Narrative [facility] - 06/07/2022 10:46 AM CDT Draw STAT [...] Ann Marie l Result Performing Organization Address [facility] Co de Phone Number [facility] [place] [address] * (ABNORMAL) POCT glucose (06/07/2022 7:59 AM CDT) Glucose, POC 247(H) 70 - 199 mg/dL [facility] Blood 06/07/2022 7:59 AM CDT 06/07/2022 7:59 AM CDT Conrad Weston Chi, MD LAB POCT ORDERABLES - DEV ICE Final Result Performing Organization Address [facility] Co de Phone Number [facility] [place] [address] * (ABNORMAL) POCT glucose (06/07/2022 4:17 AM CDT) Glucose, POC 239(H) 70 - 199 mg/dL [facility] Blood 06/07/2022 4:17 AM CDT 06/07/2022 4:17 AM CDT Conrad Weston Chi, MD LAB POCT ORDERABLES - DEV ICE Final Result Performing Organization Address [facility] [place] [address] * (ABNORMAL) aPTT (06/07/2022 4:17 AM CDT) aPTT 57(H) 27 - 37 sec [facility] Comment: Interpretive Data Therapeutic heparin range: 60.0 - 94.0 seconds. Based on correlation with therapeutic heparin activity range of 0.3-0.7 Units/mL. Current interpretive data was last revised on 2020. Blood 06/07/2022 4:17 AM CDT 06/07/2022 4:37 AM CDT Narrative [facility] - 06/07/2022 5:01 AM CDT Draw STAT [...] Ann Marie l Result Performing Organization Address [facility] Co de Phone Number [facility] [place] [address] * POCT glucose (06/06/2022 11:51 PM CDT) Glucose, POC 170 70 - 199 mg/dL [facility] Blood 06/06/2022 11:5 1 PM CDT 06/06/2022 11:51 PM CDT Conrad Weston Chi, MD LAB POCT ORDERABLES - DEV ICE Final Result Performing Organization Address [facility] Co de Phone Number [facility] [place] [address] * POCT glucose (06/06/2022 8:18 PM CDT) Glucose, POC 123 70 - 199 mg/dL [facility] Blood 06/06/2022 8:18 PM CDT 06/06/2022 8:18 PM CDT Conrad Weston Chi, MD LAB POCT ORDERABLES - DEV ICE Final Result Performing Organization Address [facility] Co de Phone Number [facility] Department [place] [address] * (ABNORMAL) eGFR (06/06/2022 8:16 PM CDT) Pathologist [facility] eGFR 5(L) 90 - 130 mL/min/1. 73 m2 ALESSANDRA [...] LAB BLOOD ORDERABLES Ann Marie kramer Result [facility] Department [place] [address] * (ABNORMAL) Differential, auto (06/06/2022 8:16 PM CDT) Pathologist [facility] Neutrophil abs 9.8(H) 1.7 - 6.5 K/cumm [facility] Imm gran abs 0.2(H) 0.0 - 0.1 K/cumm [facility] Lymphocyte abs 0.7(L) 0.8 - 3.3 K/cumm [facility] Monocyte abs 0.9(H) 0.2 - 0.8 K/cumm [facility] Eosinophil abs 0.1 0.0 - 0.5 K/cumm [facility] Basophil abs 0.0 0.0 - 0.1 K/cumm [facility] Neutrophil pct 84.4 % [facility] Comment: Interpretive Data Percent cell count reference ranges are not reported, since discordance with absolute values may lead to misinterpretation of CBC data. Current Interpretive Data was last revised on 2017. Imm gran pct 1.3 % [facility] Comment: Interpretive Data Percent cell count reference ranges are not reported, since discordance with absolute values may lead to misinterpretation of CBC data. Current Interpretive Data was last revised on 2017. Lymphocyte pct 6.0 % [facility] Comment: Interpretive Data Percent cell count reference ranges are not reported, since discordance with absolute values may lead to misinterpretation of CBC data. Current Interpretive Data was last revised on 2017. Monocyte pct 7.6 % [facility] Comment: Interpretive Data Percent cell count reference ranges are not reported, since discordance with absolute values may lead to misinterpretation of CBC data. Current Interpretive Data was last revised on 2017. Eosinophil pct 0.5 % [facility] Comment: Interpretive Data Percent cell count reference ranges are not reported, since discordance with absolute values may lead to misinterpretation of CBC data. Current Interpretive Data was last revised on 2017. Basophil pct 0.2 % [facility] Comment: Interpretive Data Percent cell count reference ranges are not reported, since discordance with absolute values may lead to misinterpretation of CBC data. Current Interpretive Data was last revised on 2017. Blood 06/06/2022 8:16 PM CDT 06/06/2022 8:41 PM CDT Conrad Wetson Chi, MD LAB BLOOD ORDERABLES Ann Marie l Result Performing Organization Address City/[facility]/ZIP Co de Phone Number [facility] [place], [place] [id number] * (ABNORMAL) Phosphorus (06/06/2022 8:16 PM CDT) [facility] Phosphorus, pl 6.6(H) 2.3 - 4.5 mg/dL [facility] Blood 06/06/2022 8:16 PM CDT 06/06/2022 8:41 PM CDT Conrad Weston Chi, MD LAB BLOOD ORDERABLES Ann Marie l Result Performing Organization Address [facility] Co de Phone Number [facility] [place] [address] * Magnesium (06/06/2022 8:16 PM CDT) [facility] Magnesium 2.1 1.4 - 2.5 mg/dL [facility] Blood 06/06/2022 8:16 PM CDT 06/06/2022 8:41 PM CDT Conrad Weston Chi, MD LAB BLOOD ORDERABLES Ann Marie l Result Performing Organization Address [facility] Co de Phone Number [facility] [place], [place] [id number] * (ABNORMAL) CBC with auto differential (06/06/2022 8:16 PM CDT) [facility] WBC 11.6(H) 3.8 - 9.9 K/cumm [facility] Hgb 9.3(L) 13.0 - 17.5 g/dL [facility] Hct 26.4(L) 38.9 - 50.3 % [facility] Plt 207 150 - 400 K/cumm [facility] MPV 11.1 9.1 - 12.3 fL [facility] RBC 2.99(L) 4.30 - 5.80 M/cumm [facility] MCV 88.3 81.3 - 96.4 fL [facility] MCH 31.1 27.1 - 33.3 pg [facility] MCHC 35.2 32.3 - 35.7 g/dL [facility] RDW CV 13.1 11.1 - 14.9 % [facility] RDW SD 42.2 35.7 - 48.1 fL [facility] NRBC abs 0.00 0.00 - 0.01 K/cumm [facility] Blood 06/06/2022 8:16 PM CDT 06/06/2022 8:41 PM CDT Conrad Weston Chi, MD LAB BLOOD ORDERABLES Ann Marie l Result [facility] Department [place] [address] * (ABNORMAL) Comprehensive metabolic panel (06/06/2022 8:16 PM CDT) Pathologist [facility] Sodium 132(L) 135 - 145 mmol/L [facility] Potassium, pl 3.4 3.3 - 4.9 mmol/L [facility] Chloride 89(L) 97 - 110 mmol/L [facility] CO2 25 22 - 32 mmol/L [facility] Anion gap 18(H) 2 - 15 mmol/L [facility] BUN 82(H) 8 - 25 mg/dL [facility] Creatinine 10.45(H) 0.80 - 1.30 mg/dL [facility] Glucose 112 70 - 199 mg/dL [facility] Comment: Interpretive Data Fasting glucose [...] 2017. Calcium 7.5(L) 8.5 - 10.3 mg/dL [facility] Bilirubin, total 0.7 0.1 - 1.2 mg/dL [facility] Protein, pl 6.5 6.5 - 8.5 g/dL [facility] Albumin 3.2(L) 3.5 - 5.0 g/dL [facility] Alk phos 135(H) 40 - 130 Units/L [facility] ALT 40 7 - 55 Units/L [facility] AST 45 10 - 50 Units/L [facility] Blood 06/06/2022 8:16 PM CDT 06/06/2022 8:[address] [facility] Conrad Weston Chi, MD LAB BLOOD ORDERABLES Ann Marie l Result Performing Organization Address City/[facility]/ZIP Co de Phone Number [facility] Department [place] [address] * POCT glucose (06/06/2022 5:53 PM CDT) Glucose, POC 99 70 - 199 mg/dL [facility] Blood 06/06/2022 5:53 PM CDT 06/06/2022 5:[address] [facility] Conrad Weston Chi, MD LAB POCT ORDERABLES - DEV ICE Final Result [facility] [place] [address] * POCT glucose (06/06/2022 11:38 AM CDT) Glucose, POC 108 70 - 199 mg/dL [facility] Blood 06/06/2022 11:3 8 AM CDT 06/06/2022 11:38 AM CDT Conrad Weston Chi, MD LAB POCT ORDERABLES - DEV ICE Final Result Performing Organization Address [facility] Co de Phone Number [facility] [place] [address] * (ABNORMAL) aPTT (06/06/2022 10:26 AM CDT) aPTT 71(H) 27 - 37 sec [facility] Comment: Interpretive Data Therapeutic heparin range: 60.0 - 94.0 seconds. Based on correlation with therapeutic heparin activity range of 0.3-0.7 Units/mL. Current interpretive data was last revised on 2020. Blood 06/06/2022 10:2 6 AM CDT 06/06/2022 10:37 AM CDT Narrative [facility] - 06/06/2022 11:02 AM CDT Draw STAT [...] Ann Marie l Result Performing Organization Address [facility] de Phone Number [facility] [place] [address] * POCT glucose (06/06/2022 8:06 AM CDT) Glucose, POC 109 70 - 199 mg/dL [facility] Blood 06/06/2022 8:06 AM CDT 06/06/2022 8:06 AM CDT Conrad Weston Chi, MD LAB POCT ORDERABLES - DEV ICE Final Result Performing Organization Address [facility] Co de Phone Number [facility] [place] [address] * XR Chest 1 View (06/06/2022 4:45 [...] Electronically signed by: Saurav Emerson M.D. Conrad Westno Chi, MD IMG XR PROCEDURES Final R esult * POCT glucose (06/06/2022 3:49 AM CDT) Glucose, POC 164 70 - 199 mg/dL [facility] Blood 06/06/2022 3:49 AM CDT 06/06/2022 3:49 AM CDT Conrad Weston Chi, MD LAB POCT ORDERABLES - DEV ICE Final Result Performing Organization Address [facility] Co de Phone Number [facility] Department [place] [address] * (ABNORMAL) aPTT (06/06/2022 3:41 AM CDT) aPTT 65(H) 27 - 37 sec [facility] Comment: Interpretive Data Therapeutic heparin range: 60.0 - 94.0 seconds. Based on correlation with therapeutic heparin activity range of 0.3-0.7 Units/mL. Current interpretive data was last revised on 2020. Blood 06/06/2022 3:41 AM CDT 06/06/2022 4:23 AM CDT Narrative [facility] - 06/06/2022 4:32 AM CDT Draw STAT [...] Ann Marie l Result Performing Organization Address [facility] Co de Phone Number [facility] Department [place] [address] * (ABNORMAL) Blood gas, arterial (06/06/2022 1:14 AM CDT) pH, Art 7.39 7.35 - 7.45 [facility] PCO2, Arterial 37 35 - 45 mmHg [facility] PO2, Arterial 169(H) 83 - 108 mmHg [facility] HCO3 Art (Calculated) 23 20 - 30 mmol/L [facility] BE, art -2 mmol/L [facility] Comment: Interpretive Data No Reference Range Established Current Interpretive Data was last revised on 2017 O2 Sat Art (Measured) 99(H) 90 - 95 % [facility] Blood 06/06/2022 1:14 AM CDT 06/06/2022 1:29 AM CDT Conrad Weston Chi, MD LAB BLOOD ORDERABLES Ann Marie l Result Performing Organization Address [facility] Co de Phone Number [facility] [place] [address] * POCT glucose (06/06/2022 12:01 AM CDT) Glucose, POC 192 70 - 199 mg/dL [facility] Blood 06/06/2022 12:0 1 AM CDT 06/06/2022 12:01 AM CDT Conrad Weston Chi, MD LAB POCT ORDERABLES - DEV ICE Final Result Performing Organization Address [facility] de Phone Number [facility] Department [place] [address] * XR Abdomen Ap 1 Vw (06/05/2022 11:30 PM CDT) Anatomical Region Laterality Modality Body, Abdomen N/A Computed Radiogr aphy 06/06/2022 9:30 AM CDT Impressions 06/06/2022 11:54 AM CDT A single view of the abdomen is submitted for evaluation. The pelvis is excluded from the [id number] and unavailable for interpretation. ??A rounded density projecting over the left upper quadrant may be external to the patient. Bowel within the imaged upper abdomen is normal in caliber. Dictated by: hSiva Anaya MD The radiology attending physician has [...] evaluation. The pelvis is excluded from the [id number] and unavailable for interpretation. A rounded density projecting over the left upper quadrant may be external to the patient. Bowel within the imaged upper abdomen is normal in caliber. Dictated by: Shiva Anaya MD The radiology attending physician has personally reviewed this study, and had reviewed and/or edited this written report and agrees with it. Electronically signed by: Kameron Muñoz M.D. Conrda Weston Chi, MD IMG XR PROCEDURES Final R esult * POCT glucose (06/05/2022 9:13 PM CDT) [facility] Glucose, POC 195 70 - 199 mg/dL [facility] Blood 06/05/2022 9:13 PM CDT 06/05/2022 9:13 PM CDT Conrad Weston Chi, MD LAB POCT ORDERABLES - DEV ICE Final Result [facility] Department [place] [address] * (ABNORMAL) eGFR (06/05/2022 8:47 PM CDT) [facility] eGFR 6(L) 90 - 130 mL/min/1. 73 m2 [facility] Comment: Interpretive Data Reference Interval [...] MD PhD LAB BLOOD ORDERABLES Final Result [facility] Department [place] [address] * (ABNORMAL) Urinalysis, microscopic only (06/05/2022 8:47 PM CDT) WBC, ur 6-10(A) 0 - 5 /HPF [facility] RBC, ur >50(A) 0 - 2 /HPF [facility] Epithelial cells, squamous, ur 1-5 0 - 5 /HPF [facility] Epithelial cells, transitional, ur 1-5 0 - 0 /HPF [facility] Bacteria, ur 2+(A) [facility] Mucous, ur Present(A) [facility] Hyaline casts, ur 11-20(A) 0 - 10 /LPF [facility] Culture Reflex Comment Reflex conditions for urine culture (WBC >10) not met. [facility] Urine 06/05/2022 8:47 PM CDT 06/05/2022 9:32 PM CDT us Conrad Weston Chi, MD LAB URINE ORDERABLES Ann Marie kramer Result [facility] Department [place] [address] * (ABNORMAL) Differential, auto (06/05/2022 8:47 PM CDT) Neutrophil abs 7.7(H) 1.7 - 6.5 K/cumm [facility] Imm gran abs 0.1 0.0 - 0.1 K/cumm [facility] Lymphocyte abs 0.5(L) 0.8 - 3.3 K/cumm [facility] Monocyte abs 0.7 0.2 - 0.8 K/cumm [facility] Eosinophil abs 0.0 0.0 - 0.5 K/cumm [facility] Basophil abs 0.0 0.0 - 0.1 K/cumm [facility] Neutrophil pct 85.3 % [facility] Comment: Interpretive Data Percent cell count reference ranges are not reported, since discordance with absolute values may lead to misinterpretation of CBC data. Current Interpretive Data was last revised on 2017. Imm gran pct 1.3 % [facility] Comment: Interpretive Data Percent cell count reference ranges are not reported, since discordance with absolute values may lead to misinterpretation of CBC data. Current Interpretive Data was last revised on 2017. Lymphocyte pct 5.8 % [facility] Comment: Interpretive Data Percent cell count reference ranges are not reported, since discordance with absolute values may lead to misinterpretation of CBC data. Current Interpretive Data was last revised on 2017. Monocyte pct 7.5 % [facility] Comment: Interpretive Data Percent cell count reference ranges are not reported, since discordance with absolute values may lead to misinterpretation of CBC data. Current Interpretive Data was last revised on 2017. Eosinophil pct 0.0 % [facility] Comment: Interpretive Data Percent cell count reference ranges are not reported, since discordance with absolute values may lead to misinterpretation of CBC data. Current Interpretive Data was last revised on 2017. Basophil pct 0.1 % [facility] Comment: Interpretive Data Percent cell count reference ranges are not reported, since discordance with absolute values may lead to misinterpretation of CBC data. Current Interpretive Data was last revised on 2017. Blood 06/05/2022 8:47 PM CDT 06/05/2022 9:45 PM CDT Champ Osborne MD PhD LAB BLOOD ORDERABLES Final Result Performing Organization Address [facility] Co de Phone Number [facility] Department [place] [address] * (ABNORMAL) Blood gas, arterial (06/05/2022 8:47 PM CDT) Pathologist [facility] pH, Art 7.38 7.35 - 7.45 [facility] PCO2, Arterial 37 35 - 45 mmHg [facility] PO2, Arterial 76(L) 83 - 108 mmHg [facility] HCO3 Art (Calculated) 22 20 - 30 mmol/L [facility] BE, art -3 mmol/L [facility] Comment: Interpretive Data No Reference Range Established Current Interpretive Data was last revised on 2017 O2 Sat Art (Measured) 94 90 - 95 % [facility] Blood 06/05/2022 8:47 PM CDT 06/05/2022 9:[address] [facility] Conrad Weston Chi, MD LAB BLOOD ORDERABLES Ann Marie l Result Performing Organization Address [facility] Co de Phone Number [facility] Department [place] [address] * (ABNORMAL) Troponin I high-sensitivity (06/05/2022 8:47 PM CDT) Pathologist [facility] Trop I hs 3,996(C) <=35 ng/L [facility] Comment: Previous critical value noted within 48 hours ago. Interpretive Data For further hscTnI resources including the diagnostic algorithm and an aid in interpretation, copy and paste this link: https://bjhlab.testcatalog.org/show/[email or web address] Current Interpretive Data last revised 2020. Blood 06/05/2022 8:47 PM CDT 06/05/2022 9:47 PM CDT Conrad Weston Chi, MD LAB BLOOD ORDERABLES Ann Marie l Result Performing Organization Address [facility]/ZIP Co de Phone Number [facility] Department [place] [address] * (ABNORMAL) Urinalysis reflex to microscopic and culture Urine (06/05/2022 8:47 PM CDT) Color, ur Yellow Yellow [facility] Clarity, ur Cloudy(A) Clear [facility] Specific gravity, ur 1.037(H) 1.003 - 1.030 [facility] pH, urine 6.0 [facility] Protein, ur ql 3+(A) Negative [facility] Glucose, ur ql 3+(A) Negative [facility] Ketones, ur Negative Negative [facility] Bilirubin, ur Negative Negative [facility] Blood, ur 3+(A) Negative [facility] Urobilinogen, ur <2.0 <2.0 mg/dL [facility] Nitrite, ur Negative Negative [facility] Leukocyte esterase, ur Negative Negative [facility] UA reflex comment Reflex to microscopic UA will be performed. [facility] Urine 06/05/2022 8:47 PM CDT 06/05/2022 8:47 PM CDT Narrative [facility] - 06/05/2022 9:49 PM CDT ?? Urine pH is affected by diet, medications, systemic acid-base disturbances, and renal tubular function. ??pH may affect urinary stone formation. ??For example, urine pH below 6.0 may help reduce the tendency for calcium phosphate stones and pH greater than 6.0 may reduce the tendency for uric acid stone formation. Source: [employer]. Last revised 08-31-2017 Conrad Weston Chi, MD LAB MICROBIOLOGY - GENERA L ORDERABLES Final Result Performing Organization Address [facility]/ZIP Co de Phone Number [facility] [place] [address] * (ABNORMAL) Phosphorus (06/05/2022 8:47 PM CDT) [facility] Phosphorus, pl 6.5(H) 2.3 - 4.5 mg/dL [facility] Blood 06/05/2022 8:47 PM CDT 06/05/2022 9:46 PM CDT Conrad Weston Chi, MD LAB BLOOD ORDERABLES Ann Marie l Result Performing Organization Address City/[facility]/ZIP Co de Phone Number [facility] Department [place] [address] * Magnesium (06/05/2022 8:47 PM CDT) [facility] Magnesium 1.9 1.4 - 2.5 mg/dL [facility] Blood 06/05/2022 8:47 PM CDT 06/05/2022 9:46 PM CDT Conrad Weston Chi, MD LAB BLOOD ORDERABLES Ann Marie l Result Performing Organization Address City/[facility]/ZIP Co de Phone Number [facility] Department [place] [address] * (ABNORMAL) CBC with auto differential (06/05/2022 8:47 PM CDT) [facility] WBC 9.1 3.8 - 9.9 K/cumm [facility] Hgb 9.3(L) 13.0 - 17.5 g/dL [facility] Hct 26.0(L) 38.9 - 50.3 % [facility] Plt 201 150 - 400 K/cumm [facility] MPV 11.3 9.1 - 12.3 fL [facility] RBC 2.95(L) 4.30 - 5.80 M/cumm [facility] MCV 88.1 81.3 - 96.4 fL [facility] MCH 31.5 27.1 - 33.3 pg [facility] MCHC 35.8(H) 32.3 - 35.7 g/dL [facility] RDW CV 12.6 11.1 - 14.9 % [facility] RDW SD 40.7 35.7 - 48.1 fL [facility] NRBC abs 0.00 0.00 - 0.01 K/cumm [facility] Blood 06/05/2022 8:47 PM CDT 06/05/2022 9:45 PM CDT us Conrad Weston Chi, MD LAB BLOOD ORDERABLES Ann Marie kramer Result [facility] Department [place] [address] * (ABNORMAL) Comprehensive metabolic panel (06/05/2022 8:47 PM CDT) Sodium 132(L) 135 - 145 mmol/L [facility] Potassium, pl 3.6 3.3 - 4.9 mmol/L [facility] Chloride 90(L) 97 - 110 mmol/L [facility] CO2 25 22 - 32 mmol/L [facility] Anion gap 17(H) 2 - 15 mmol/L [facility] BUN 84(H) 8 - 25 mg/dL [facility] Creatinine 9.77(H) 0.80 - 1.30 mg/dL [facility] Glucose 180 70 - 199 mg/dL [facility] Comment: Interpretive Data Fasting glucose [...] 2017. Calcium 7.8(L) 8.5 - 10.3 mg/dL [facility] Bilirubin, total 0.6 0.1 - 1.2 mg/dL [facility] Protein, pl 6.3(L) 6.5 - 8.5 g/dL [facility] Albumin 3.4(L) 3.5 - 5.0 g/dL [facility] Alk phos 126 40 - 130 Units/L [facility] ALT 43 7 - 55 Units/L [facility] AST 46 10 - 50 Units/L [facility] Blood 06/05/2022 8:47 PM CDT 06/05/2022 9:46 PM CDT Conrad Weston Chi, MD LAB BLOOD ORDERABLES Ann Marie l Result Performing Organization Address [facility] de Phone Number [facility] Department [place] [address] * Cell Differential, Body Fluid (06/05/2022 8:36 PM CDT) Total cells diffed 100 cells [facility] Comment: Interpretive Data Unless otherwise specified, the reference range and other method performance specifications have not been established for CSF/Body Fluid tests. ??The test results should be integrated into the clinical context for interpretation. Current interpretive data was last revised on 2019. Neutrophils, fld 4 % [facility] Lymphs, fld 9 % [facility] Monocyte, fld 68 % [facility] Macrophages, fld 18 % [facility] Mesothelial cells, fld 1 % [facility] Fluid 06/05/2022 8:36 PM CDT 06/05/2022 9:01 PM CDT Conrad Weston Chi, MD LAB BODY FLUIDS AND STOOL S ORDERABLES Final Result Performing Organization Address [facility] Co de Phone Number [facility] Department [place] [address] * Aerobic and anaerobic culture and gram stain Peritoneal dialysis fluid Abdominal (06/05/2022 8:36 PM CDT) Direct Specimen Exam Stain: Cytospin Gram stain shows: No polymorphonuclear leukocytes seen. Other cellular material present. No organisms seen. [facility] Report Final Report: No growth [facility] Peritoneal dialysis fluid (Abdominal) 06/05/2022 8:36 PM CDT 06/05/2022 11:56 PM CDT Narrative [facility] - 06/11/2022 1:37 PM CDT Testing performed by [facility] ([phone]) Specimens submitted from normally sterile body sites [...] MICROBIOLOGY - GENERA L ORDERABLES Final Result [facility] Department [place] [address] * Cell count with reflex to differential, body fluid (06/05/2022 8:36 PM CDT) Specimen type, fld Peritoneal [facility] Color, fld Straw [facility] Clarity, fld Clear Clear [facility] Nucleated cells, fld 11 /cumm [facility] Comment: Interpretive Data Unless otherwise specified, the reference range and other method performance specifications have not been established for CSF/Body Fluid tests. ??The test results should be integrated into the clinical context for interpretation. Current interpretive data was last revised on 2019. RBC, fld 0 /cumm [facility] Fluid 06/05/2022 8:36 PM CDT 06/05/2022 9:01 PM CDT Conrad Weston Chi, MD LAB BODY FLUIDS AND STOOL S ORDERABLES Final Result Performing Organization Address [facility] Co de Phone Number [facility] [place] [address] * Lipase (06/05/2022 6:39 PM CDT) Lipase 14 10 - 99 Units/L [facility] Blood 06/05/2022 6:39 PM CDT 06/05/2022 6:53 PM CDT Conrad Weston Chi, MD LAB BLOOD ORDERABLES Ann Marie l Result Performing Organization Address [facility] [place] [address] * (ABNORMAL) aPTT (06/05/2022 6:34 PM CDT) aPTT 38(H) 27 - 37 sec [facility] Comment: Interpretive Data Therapeutic heparin range: 60.0 - 94.0 seconds. Based on correlation with therapeutic heparin activity range of 0.3-0.7 Units/mL. Current interpretive data was last revised on 2020. Blood 06/05/2022 6:34 PM CDT 06/05/2022 6:40 PM CDT Conrad Weston Chi, MD LAB BLOOD ORDERABLES Ann Marie l Result Performing Organization Address [facility] Co de Phone Number [facility] [place] [address] * US RUQ (06/05/2022 6:12 PM CDT) [...] POC 275(H) 70 - 199 mg/dL [facility] Blood 06/05/2022 5:07 PM CDT 06/05/2022 5:07 PM CDT Conrad Weston Chi, MD LAB POCT ORDERABLES - DEV ICE Final Result [facility] Department [place] [address] * Blood culture Blood Antecubital, left (06/05/2022 5:06 PM CDT) Report Final Report: No growth [facility] Blood (Antecubital, left) 06/05/2022 5:06 PM CDT 06/05/2022 5:21 PM CDT Narrative [facility] - 06/10/2022 7:01 AM CDT From a [...] organism identification may be performed using the TV[employer] Gram-Positive Blood Culture Assay. This assay detects microbial DNA in positive blood culture broth via hybridization of target DNA to capture oligonucleotides on a microarray. This assay has been cleared by the [place] Food and Drug Administration and its performance characteristics have been verified by the [facility] Microbiology Laboratory. 5. ?For questions about this culture, contact the Microbiology Laboratory at [phone]. Interpretive data was last revised on 2020. us Conrad Weston Chi, MD LAB MICROBIOLOGY - GENERA L ORDERABLES Final Result [facility] Department [place] [address] * Blood culture Blood Antecubital, right (06/05/2022 5:06 PM CDT) Report Final Report: No growth [facility] Blood (Antecubital, right) 06/05/2022 5:06 PM CDT [...] organism identification may be performed using the [employer] Gram-Positive Blood Culture Assay. This assay detects microbial DNA in positive blood culture broth via hybridization of target DNA to capture oligonucleotides on a microarray. This assay has been cleared by the [place] Food and Drug Administration and its performance characteristics have been verified by the [facility] Microbiology Laboratory. 5. ?For questions about this culture, contact the Microbiology Laboratory at [phone]. Interpretive data was last revised on 2020. Conrad Weston Chi, MD LAB MICROBIOLOGY - GENERA L ORDERABLES Final Result Performing Organization Address City/[facility] Co de Phone Number [facility] Department [place] [address] * (ABNORMAL) Troponin I high-sensitivity (06/05/2022 4:07 PM CDT) [facility] Trop I hs 4,266(C) <=35 ng/L [facility] Comment: Previous critical value noted within 48 hours ago. Interpretive Data For further hscTnI resources including the diagnostic algorithm and an aid in interpretation, copy and paste this link: https://bjhlab.testcatalog.org/show/[email or web address] Current Interpretive Data last revised 2020. Blood 06/05/2022 4:07 PM CDT 06/05/2022 4:27 PM CDT Conrad Weston Chi, MD LAB BLOOD ORDERABLES Ann Marie l Result Performing Organization Address [facility] Co de Phone Number [facility] Department [place] [address] * (ABNORMAL) eGFR (06/05/2022 3:54 PM CDT) Pathologist [facility] eGFR 6(L) 90 - 130 mL/min/1. 73 [...] PhD LAB BLOOD ORDERABLES Final Result [facility] Department [place] [address] * (ABNORMAL) Differential, auto (06/05/2022 3:54 PM CDT) [facility] Neutrophil abs 9.2(H) 1.7 - 6.5 K/cumm [facility] Imm gran abs 0.1 0.0 - 0.1 K/cumm [facility] Lymphocyte abs 0.6(L) 0.8 - 3.3 K/cumm [facility] Monocyte abs 0.8 0.2 - 0.8 K/cumm [facility] Eosinophil abs 0.0 0.0 - 0.5 K/cumm [facility] Basophil abs 0.0 0.0 - 0.1 K/cumm [facility] Neutrophil pct 86.0 % [facility] Comment: Interpretive Data Percent cell count reference ranges are not reported, since discordance with absolute values may lead to misinterpretation of CBC data. Current Interpretive Data was last revised on 2017. Imm gran pct 0.8 % [facility] Comment: Interpretive Data Percent cell count reference ranges are not reported, since discordance with absolute values may lead to misinterpretation of CBC data. Current Interpretive Data was last revised on 2017. Lymphocyte pct 5.6 % [facility] Comment: Interpretive Data Percent cell count reference ranges are not reported, since discordance with absolute values may lead to misinterpretation of CBC data. Current Interpretive Data was last revised on 2017. Monocyte pct 7.4 % [facility] Comment: Interpretive Data Percent cell count reference ranges are not reported, since discordance with absolute values may lead to misinterpretation of CBC data. Current Interpretive Data was last revised on 2017. Eosinophil pct 0.1 % [facility] Comment: Interpretive Data Percent cell count reference ranges are not reported, since discordance with absolute values may lead to misinterpretation of CBC data. Current Interpretive Data was last revised on 2017. Basophil pct 0.1 % [facility] Comment: Interpretive Data Percent cell count reference ranges are not reported, since discordance with absolute values may lead to misinterpretation of CBC data. Current Interpretive Data was last revised on 2017. Blood 06/05/2022 3:54 PM CDT 06/05/2022 4:27 PM CDT Champ Osborne MD PhD LAB BLOOD ORDERABLES Final Result Performing Organization Address City/State/[facility] Co de Phone Number [facility] [place] [address] * Type and screen (06/05/2022 3:54 PM CDT) ABO Rh A Positive [facility] Maribel, indirect Negative [facility] Blood 06/05/2022 3:54 PM CDT 06/05/2022 4:18 PM CDT Narrative [facility] - 06/05/2022 5:07 PM CDT Has the patient had Daratumumab or Isatuximab in the past 6 months?->Unknown Champ Osborne MD PhD LAB BLOOD BANK TEST ORDERA BLES Final Result Performing Organization Address [facility] [place] [address] * (ABNORMAL) aPTT (06/05/2022 3:54 PM CDT) aPTT 45(H) 27 - 37 sec [facility] Comment: Interpretive Data Therapeutic heparin range: 60.0 - 94.0 seconds. Based on correlation with therapeutic heparin activity range of 0.3-0.7 Units/mL. Current interpretive data was last revised on 2020. Blood (Blood, Venous) 06/05/2022 3:54 PM CDT 06/05/2022 4:16 PM CDT Champ Osborne MD PhD LAB BLOOD ORDERABLES Final Result Performing Organization Address [facility] [place] [address] * Protime-INR (06/05/2022 3:54 PM CDT) PT 10.8 9.2 - 13.5 sec [facility] INR 1.0 0.9 - 1.2 [facility] Comment: Interpretive data Oral anticoagulant therapeutic ranges: Venous thromboembolism prophylaxis or treatment: 2.0-3.0 CARDIOLOGY Standard range: 2.0-3.0 High-intensity range: 2.5-3.5 Refer to indication-specific guidelines for appropriate target ranges for prosthetic heart valve replacement. Current interpretive data was last revised on 2019. Blood (Blood, Venous) 06/05/2022 3:54 PM CDT 06/05/2022 4:16 PM CDT us Champ Osborne MD PhD LAB BLOOD ORDERABLES Final Result [facility] Department [place] [address] * (ABNORMAL) CBC with auto differential (06/05/2022 3:54 PM CDT) WBC 10.7(H) 3.8 - 9.9 K/cumm [facility] Hgb 10.3(L) 13.0 - 17.5 g/dL [facility] Hct 29.1(L) 38.9 - 50.3 % [facility] Plt 238 150 - 400 K/cumm [facility] MPV 11.1 9.1 - 12.3 fL [facility] RBC 3.32(L) 4.30 - 5.80 M/cumm [facility] MCV 87.7 81.3 - 96.4 fL [facility] MCH 31.0 27.1 - 33.3 pg [facility] MCHC 35.4 32.3 - 35.7 g/dL [facility] RDW CV 12.5 11.1 - 14.9 % [facility] RDW SD 40.3 35.7 - 48.1 fL [facility] NRBC abs 0.00 0.00 - 0.01 K/cumm [facility] Blood 06/05/2022 3:54 PM CDT 06/05/2022 4:27 PM CDT Champ Osborne MD PhD LAB BLOOD ORDERABLES Final Result [facility] Department [place] [address] * Lactate (06/05/2022 3:54 PM CDT) [facility] Lactate 1.6 0.7 - 2.0 mmol/L [facility] Blood 06/05/2022 3:54 PM CDT 06/05/2022 4:27 PM CDT Champ Osborne MD PhD LAB BLOOD ORDERABLES Final Result Performing Organization Address [facility] de Phone Number [facility] Department [place] [address] * (ABNORMAL) Basic metabolic panel (06/05/2022 3:54 PM CDT) [facility] Sodium 132(L) 135 - 145 mmol/L [facility] Potassium, pl 4.1 3.3 - 4.9 mmol/L [facility] Chloride 87(L) 97 - 110 mmol/L [facility] CO2 26 22 - 32 mmol/L [facility] Anion gap 19(H) 2 - 15 mmol/L [facility] BUN 81(H) 8 - 25 mg/dL [facility] Creatinine 9.08(H) 0.80 - 1.30 mg/dL [facility] Glucose 276(H) 70 - 199 mg/dL [facility] Comment: Interpretive Data Fasting glucose [...] 2017. Calcium 8.1(L) 8.5 - 10.3 mg/dL [facility] Blood 06/05/2022 3:54 PM CDT 06/05/2022 4:27 PM CDT us Champ Osborne MD PhD LAB BLOOD ORDERABLES Final Result Performing Organization Address [facility] de Phone Number [facility] Department [place] [address] * (ABNORMAL) POCT glucose (06/05/2022 3:46 PM CDT) Glucose, POC 279(H) 70 - 199 mg/dL [facility] Blood 06/05/2022 3:46 PM CDT 06/05/2022 3:46 PM CDT us Conrad Weston Chi, MD LAB POCT ORDERABLES - DEV ICE Final Result Performing Organization Address [facility] de Phone Number [facility] Department [place] [address] * (ABNORMAL) eGFR (06/05/2022 3:22 PM CDT) [facility] eGFR 6(L) 90 - 130 mL/min/1. 73 m2 [facility] Comment: Interpretive Data Reference Interval [...] BLOOD ORDERABLES Final Result Performing Organization Address City/[facility]/ZIP Co de Phone Number [facility] [place] [address] * (ABNORMAL) POCT [id number]-HCT, WB - ISTAT (06/05/2022 3:22 PM CDT) Pathologist [facility] Na POC 126(L) 135 - 145 mmol/L [facility] K POC 3.6 3.3 - 4.9 mmol/L [facility] Comment: Interpretive Data This method is not able to assess for hemolysis, which may falsely increase potassium concentrations. If further testing is needed to evaluate this result, consider in-laboratory plasma potassium. Current Interpretive Data was last revised on 2022. Glucose POC i-STAT 287(H) 70 - 199 mg/dL [facility] Hct, POC 30.0(L) 38.9 - 50.3 % [facility] Blood 06/05/2022 3:22 PM CDT 06/05/2022 3:22 PM CDT us Champ Osborne MD PhD LAB POCT ORDERABLES - APRIL CE Final Result Performing Organization Address City/[facility]/ZIP Co de Phone Number [facility] [place] [address] * Magnesium (06/05/2022 3:22 PM CDT) Pathologist [facility] Magnesium 2.1 1.4 - 2.5 mg/dL [facility] Blood 06/05/2022 3:22 PM CDT 06/05/2022 3:59 PM CDT Cahmp Osborne MD PhD LAB BLOOD ORDERABLES Final Result [facility] Department [place] [address] * (ABNORMAL) Basic metabolic panel (06/05/2022 3:22 PM CDT) [facility] Sodium 127(L) 135 - 145 mmol/L [facility] Potassium, pl 3.9 3.3 - 4.9 mmol/L [facility] Comment:Hemolyzed; Potassium value may be falsely elevated by as much as 0.3-0.5 mmol/L. Suggest redraw and reanalysis. Chloride 88(L) 97 - 110 mmol/L [facility] CO2 19(L) 22 - 32 mmol/L [facility] Anion gap 20(H) 2 - 15 mmol/L [facility] BUN 79(H) 8 - 25 mg/dL [facility] Creatinine 9.13(H) 0.80 - 1.30 mg/dL [facility] Glucose 294(H) 70 - 199 mg/dL [facility] Comment: Interpretive Data Fasting glucose [...] 2017. Calcium 8.2(L) 8.5 - 10.3 mg/dL [facility] Blood 06/05/2022 3:22 PM CDT 06/05/2022 3:59 PM CDT us Champ Osborne MD PhD LAB BLOOD ORDERABLES Final Result Performing Organization Address [facility] Co de Phone Number [facility] [place] [address] * (ABNORMAL) Troponin I high-sensitivity (06/05/2022 3:21 PM CDT) Pathologist [facility] Trop I hs 4,261(C) <=35 ng/L [facility] Comment: Previous critical value noted within 48 hours ago. Interpretive Data For further hscTnI resources including the diagnostic algorithm and an aid in interpretation, copy and paste this link: https://bjhlab.testcatalog.org/show/[email or web address] Current Interpretive Data last revised 2020. Blood 06/05/2022 3:21 PM CDT 06/05/2022 3:59 PM CDT us Champ Osborne MD PhD LAB BLOOD ORDERABLES Final Result Performing Organization Address [facility] Co de Phone Number [facility] [place] [address] * (ABNORMAL) Arterial Blood gas w/Lactate POCT (06/05/2022 3:17 PM CDT) [facility] Lactate POC i-STAT 2.0 0.7 - 2.2 mmol/L [facility] pH POC 7.38 7.35 - 7.45 [facility] pCO2, Art POC 37 35 - 45 mmHg [facility] PO2 POC 53(L) 80 - 105 mmHg [facility] CO2, total POC 23 20 - 30 mmol/L [facility] HCO3, POC 22 21 - 30 mmol/L [facility] BE POC -3(L) -2 - 3 mmol/L [facility] O2 sat POC 86(L) 95 - 98 % [facility] Blood 06/05/2022 3:17 PM CDT 06/05/2022 3:17 PM CDT us Champ Osborne MD PhD LAB BLOOD ORDERABLES Final Result [facility] Department [place] [address] * XR Chest 1 View (06/05/2022 3:15 [...] unchanged. Electronically signed by: Saurav Emerson M.D. us Champ Osborne MD PhD IMG XR PROCEDURES Final Re sult * ECG 12 lead (06/05/2022 2:52 PM CDT) Ventricular Rate EKG/Min 73 BPM [facility] Atrial Rate 73 BPM [facility] AR-Interval (MSEC) 184 ms [facility] QRS-Interval (MSEC) 106 ms [facility] QT-Interval (MSEC) 442 ms [facility] QTc 486 ms [facility] P [place] 49 degrees [facility] R [place] -33 degrees [facility] T [place] 87 degrees [facility] Diagnosis Normal sinus rhythm Left axis deviation QS in V1 and V2, a nonspecific finding with multiple causes, including lead misplacement or septal infarction in 20% Abnormal ECG Confirmed by JESS BUSTOS M.D ([id number]) on 06/07/2022 8:30:06 AM [facility] 06/05/2022 2:52 PM CDT 06/07/2022 8:30 AM CDT Champ Osborne MD PhD ECG ORDERABLES Final Resu lt Performing Organization Address City/[facility]/ZIP Co de Phone Number [facility] * (ABNORMAL) POCT glucose (06/05/2022 2:22 PM CDT) [facility] Glucose, POC 389(H) 70 - 199 mg/dL [facility] Blood 06/05/2022 2:22 PM CDT 06/05/2022 2:22 PM CDT Champ Osborne MD PhD LAB POCT ORDERABLES - APRIL CE Final Result Performing Organization Address [facility] Co de Phone Number [facility] Department [place] [address] * Respiratory pathogen panel Nasopharyngeal (06/05/2022 1:05 PM CDT) [facility] Influenza A RNA Not Detected Not Detected [facility] Influenza B RNA Not Detected Not Detected [facility] RSV RNA Not Detected Not Detected [facility] COVID-19 RNA Not Detected Not Detected [facility] Coronavirus 229E RNA Not Detected Not Detected [facility] Coronavirus HKU1 RNA Not Detected Not Detected [facility] Coronavirus NL63 RNA Not Detected Not Detected [facility] Coronavirus OC43 RNA Not Detected Not Detected [facility] Adenovirus DNA Not Detected Not Detected [facility] Metapneumovirus RNA Not Detected Not Detected [facility] Rhinovirus/Enterov irus RNA Not Detected Not Detected [facility] Parainfluenza 1 RNA Not Detected Not Detected [facility] Parainfluenza 2 RNA Not Detected Not Detected [facility] Parainfluenza 3 RNA Not Detected Not Detected [facility] Parainfluenza 4 RNA Not Detected Not Detected [facility] B. pertussis DNA Not Detected Not Detected [facility] B. parapertussis DNA Not Detected Not Detected [facility] C. pneumoniae DNA Not Detected Not Detected [facility] M. pneumoniae DNA Not Detected Not Detected [facility] Nasopharyngeal 06/05/2022 1: 05 PM CDT 06/05/2022 1:32 PM CDT Narrative [facility] - 06/05/2022 2:40 PM CDT Is the Patient experiencing symptoms consistent with COVID?->No Reason for testing?->Symptomatic Surveillance testing for transplant patient?->No ??Interpretive Data [employer] Respiratory Panel (RP2.1) assay is a [...] assay has FDA clearance for testing of PRODUCT MANAGEMENT SPECIALIST swabs. ??The performance of additional specimen types has been assessed by the performing laboratory. ??The performance characteristics of this assay have been determined by [facility] Molecular Infectious Disease Laboratory. Current interpretive data was last revised on 22. Champ Osborne MD PhD LAB MICROBIOLOGY - GENERAL ORDERABLES Final Result Performing Organization Address City/[facility]/ZIP Co de Phone Number [facility] Department [place] [address] * Lactate (06/05/2022 12:10 PM CDT) Lactate 2.0 0.7 - 2.0 mmol/L [facility] Blood 06/05/2022 12:1 0 PM CDT 06/05/2022 12:39 PM CDT Champ Osborne MD PhD LAB BLOOD ORDERABLES Final Result [facility] Department [place] [address] * Beta-hydroxybutyrate (06/05/2022 12:10 PM CDT) Beta-Hydroxybut yrate <0.1 0.0 - 0.5 mmol/L [facility] Blood 06/05/2022 12:1 0 PM CDT 06/05/2022 12:34 PM CDT Champ Osborne MD PhD LAB BLOOD ORDERABLES Final Result Performing Organization Address [facility] Co de Phone Number [facility] [place] [address] * (ABNORMAL) POCT glucose (06/05/2022 11:23 AM CDT) Glucose, POC 402(H) 70 - 199 mg/dL [facility] Glucose comment 1 Glu2: RN/MD Notified [facility] Blood 06/05/2022 11:2 3 AM CDT 06/05/2022 11:23 AM CDT Champ Osboren MD PhD LAB POCT ORDERABLES - APRIL CE Final Result Performing Organization Address [facility] [place] [address] * aPTT (06/05/2022 11:04 AM CDT) aPTT 29 27 - 37 sec [facility] Comment: Interpretive Data Therapeutic heparin range: 60.0 - 94.0 seconds. Based on correlation with therapeutic heparin activity range of 0.3-0.7 Units/mL. Current interpretive data was last revised on 2020. Blood 06/05/2022 11:0 4 AM CDT 06/05/2022 12:39 PM CDT Champ Osborne MD PhD LAB BLOOD ORDERABLES Final Result Performing Organization Address City/[facility] Co de Phone Number [facility] [place] [address] * (ABNORMAL) POCT glucose (06/05/2022 10:07 AM CDT) Glucose, POC 403(H) 70 - 199 mg/dL [facility] Blood 06/05/2022 10:0 7 AM CDT 06/05/2022 10:07 AM CDT Champ Osborne MD PhD LAB POCT ORDERABLES - APRIL CE Final Result Performing Organization Address [facility] Co de Phone Number [facility] [place] [address] * (ABNORMAL) POCT glucose (06/05/2022 8:47 AM CDT) Glucose, POC 398(H) 70 - 199 mg/dL [facility] Blood 06/05/2022 8:47 AM CDT 06/05/2022 8:47 AM CDT Champ Osborne MD PhD LAB POCT ORDERABLES - APRIL CE Final Result Performing Organization Address [facility] Network/[facility] Co de Phone Number [facility] [place] [address] * (ABNORMAL) POCT glucose (06/05/2022 8:45 AM CDT) Glucose, POC 458(C) 70 - 199 mg/dL [facility] Glucose comment 1 Glu2: RN/MD Notified [facility] Blood 06/05/2022 8:45 AM CDT 06/05/2022 8:45 AM CDT Champ Osborne MD PhD LAB POCT ORDERABLES - APRIL CE Final Result Performing Organization Address [facility] [place] [address] * (ABNORMAL) POCT glucose (06/05/2022 6:33 AM CDT) Glucose, POC 373(H) 70 - 199 mg/dL [facility] Blood 06/05/2022 6:33 AM CDT 06/05/2022 6:33 AM CDT us Champ Osborne MD PhD LAB POCT ORDERABLES - APRIL CE Final Result Performing Organization Address [facility] Co de Phone Number [facility] Department [place] [address] * IR Outside Reference (06/05/2022 5:59 AM CDT) Impressions [facility] - 06/05/2022 5:59 AM CDT These images are for Reference purposes only and have not been reviewed by [facility]. ??There will be no report generated by a [facility] Radiologist. Narrative [facility] - 06/05/2022 5:59 AM CDT EXAMINATION: ??Images For Reference Purposes Only us Carrington Weber MD IMG IR PROCEDURES Final Result Performing Organization Address [facility] de Phone Number [email or web address] * XR Outside Reference (06/05/2022 5:57 AM CDT) Impressions [facility] - 06/05/2022 5:57 AM CDT These images are for Reference purposes only and have not been reviewed by [facility]. ??There will be no report generated by a [facility] Radiologist. Narrative [facility] - 06/05/2022 5:57 AM CDT EXAMINATION: ??Images For Reference Purposes Only us Carrington Weber MD IMG XR PROCEDURES Final Result Performing Organization Address [facility] Co de Phone Number [email or web address] * US Outside Reference (06/05/2022 5:56 AM CDT) Impressions [facility] - 06/05/2022 5:56 AM CDT These images are for Reference purposes only and have not been reviewed by [facility]. ??There will be no report generated by a [facility] Radiologist. Narrative [facility] - 06/05/2022 5:56 AM CDT EXAMINATION: ??Images For Reference Purposes Only Carrington Weber MD IMG US PROCEDURES Final Result Performing Organization Address City/[facility] Co de Phone Number [email or web address] * CT Body Outside Reference (06/05/2022 5:54 AM CDT) Impressions RAD_PACJerardo_MURALI - 06/05/2022 5:54 AM CDT These images are for Reference purposes only and have not been reviewed by [facility]. ??There will be no report generated by a [facility] Radiologist. Narrative RAD_PACS_[facility] - 06/05/2022 5:54 AM CDT EXAMINATION: ??Images For Reference Purposes Only Carrington Weber MD IMG CT PROCEDURES Final Result Performing Organization Address [facility] de Phone Number [email or web address] * (ABNORMAL) Troponin I high-sensitivity 2-hour (06/05/2022 4:27 AM CDT) Trop I hs 4,555(C) <=35 ng/L [facility] Comment: Previous critical value noted within 48 hours ago. Interpretive Data For further hscTnI resources including the diagnostic algorithm and an aid in interpretation, copy and paste this link: https://bjhlab.testcatalog.org/show/hsTrop-1 Current Interpretive Data last revised 2020. Trop I hs pct delta -1 % [facility] Trop I hs interp Insignificant [facility] [place] Blood 06/05/2022 4:2 7 AM CDT 06/05/2022 5:21 AM CDT Champ Osborne MD PhD LAB BLOOD ORDERABLES Final Result Performing Organization Address [facility] de Phone Number [facility] Department [place] [address] * (ABNORMAL) aPTT (06/05/2022 4:27 AM CDT) aPTT 23(L) 27 - 37 sec [facility] Comment: Interpretive Data Therapeutic heparin range: 60.0 - 94.0 seconds. Based on correlation with therapeutic heparin activity range of 0.3-0.7 Units/mL. Current interpretive data was last revised on 2020. Blood 06/05/2022 4:27 AM CDT 06/05/2022 5:50 AM CDT Narrative [facility] - 06/05/2022 6:00 AM CDT Baseline prior to heparin initiation Champ Osborne MD PhD LAB BLOOD ORDERABLES Final Result Performing Organization Address City/[facility] Co de Phone Number [facility] [place] [address] * Protime-INR (06/05/2022 4:27 AM CDT) [facility] PT 10.1 9.2 - 13.5 sec [facility] INR 0.9 0.9 - 1.2 [facility] Comment: Interpretive data Oral anticoagulant therapeutic ranges: Venous thromboembolism prophylaxis or treatment: 2.0-3.0 CARDIOLOGY Standard range: 2.0-3.0 High-intensity range: 2.5-3.5 Refer to indication-specific guidelines for appropriate target ranges for prosthetic heart valve replacement. Current interpretive data was last revised on 2019. Blood 06/05/2022 4:27 AM CDT 06/05/2022 5:50 AM CDT [facility] - 06/05/2022 6:00 AM CDT Baseline prior to heparin initiation Champ Osborne MD PhD LAB BLOOD ORDERABLES Final Result Performing Organization Address [facility] Co de Phone Number [facility] [place] [place] [address] * (ABNORMAL) Troponin I high-sensitivity series (baseline, 2hr, 4hr, 6hr) (06/05/2022 2:37 AM CDT) Pathologist [facility] Trop I hs 4,614(C) <=35 ng/L [facility] Comment: Previous critical value noted within 48 hours ago. Interpretive Data For further [facility] resources including the diagnostic algorithm and an aid in interpretation, copy and paste this link: https://bjhlab.testcatalog.org/show/hsTrop-[email or web address] Current Interpretive Data last revised 2020. Blood 06/05/2022 2:37 AM CDT 06/05/2022 3:30 AM CDT Champ Osborne MD PhD LAB BLOOD ORDERABLES Final Result Performing Organization Address City/[facility]/ZIP Co de Phone Number [facility] Department [place] [address] * POCT glucose (06/04/2022 11:04 PM CDT) [facility] Glucose, POC 191 70 - 199 mg/dL [facility] Blood 06/04/2022 11:0 4 PM CDT 06/04/2022 11:04 PM CDT us Champ Osborne MD PhD LAB POCT ORDERABLES - APRIL CE Final Result Performing Organization Address City/[facility]/ZIP Co de Phone Number [facility] Department [place] [address] * ECG 12 lead (06/04/2022 10:59 PM CDT) [facility] Ventricular Rate EKG/Min 47 BPM [facility] Atrial Rate 47 BPM [facility] AR-Interval (MSEC) 228 ms [facility] QRS-Interval (MSEC) 116 ms [facility] QT-Interval (MSEC) 532 ms [facility] QTc 470 ms [facility] P [place] 39 degrees [facility] R [place] -33 degrees [facility] T [place] 105 degrees [facility] Diagnosis Sinus bradycardia with 1st degree A-V block Left axis deviation Incomplete left bundle branch block Nonspecific ST and T wave abnormality Long QTc When compared with ECG of 23-MAR-2017 00:14, AR interval has increased QTc has increased Rate has decreased by 15 bpm Incomplete left bundle branch block is now Present Criteria for Septal infarct are not Present Confirmed by KENN BILLINGSLEY M.D ([id number]) on 06/06/2022 9:57:10 PM [facility] 06/04/2022 10:5 9 PM CDT 06/06/2022 9:57 PM CDT Catherine Adams MD ECG ORDERABLES Final Resul t Performing Organization Address City/[facility]/ZIP Co de Phone Number [facility] * (ABNORMAL) Hemoglobin A1c (06/04/2022 10:52 PM CDT) Hgb A1C 7.8(H) 4.0 - 5.6 % [facility] Estimated Average Glucose 177 mg/dL [facility] Comment: The ADA recommends reporting an estimated Average Glucose (eAG) with all Hemoglobin A1c results using the equation derived from a study of 507 normal and diabetic adults. ??Minority populations were underrepresented and children were not included. ?? (Diabetes Care 2020; 43(S1): S66-S76). ??The eAG is not equivalent to a fasting glucose. Blood 06/04/2022 10:5 2 PM CDT 06/05/[address] [facility] Champ Osborne MD PhD LAB BLOOD ORDERABLES Final Result Performing Organization Address City/[facility] Co de Phone Number [facility] Department [place] [address] * Beta-hydroxybutyrate (06/04/2022 10:52 PM CDT) Pathologist [facility] Beta-Hydroxybut yrate <0.1 0.0 - 0.5 mmol/L [facility] Blood 06/04/2022 10:5 2 PM CDT 06/05/2022 Champ Osborne MD PhD LAB BLOOD ORDERABLES Final Result [facility] Department [place] [address] * (ABNORMAL) Lipid panel (06/04/2022 10:52 PM CDT) Cholesterol 149 30 - 199 mg/dL [facility] Comment: Interpretive Data Ages [...] revised on 2018. Triglycerides 165(H) <=149 mg/dL [facility] Comment: Interpretive Data Ages [...] revised on 2018. HDL 34(L) >=40 mg/dL [facility] Comment: Interpretive Data Ages < [...] on 2018. LDL, calculated 82 <=129 mg/dL [facility] Comment: Interpretive Data Ages < [...] on 2018. Non-HDL Cholesterol 115 mg/dL [facility] Comment: Interpretive Data Ages < or = [...] last revised on 2018. Chol/HDL ratio 4 [facility] Blood 06/04/2022 10:5 2 PM CDT 06/04/2022 11:56 PM CDT Champ Osborne MD PhD LAB BLOOD ORDERABLES Final Result Performing Organization Address [facility] Co de Phone Number [facility] [place] [address] * Critical result callback Cardio chemistry (06/04/2022 10:52 PM CDT) Date Notified [id number] [facility] Time Notified 99 [facility] Test name Trop [facility] Called/Read Back Denisse Connelly RN [facility] Credentials RN [facility] Called By dm [facility] Blood 06/04/2022 10:5 2 PM CDT 06/04/2022 11:56 PM CDT Catherine Adams MD LAB BLOOD ORDERABLES Final Result Performing Organization Address [facility] Co de Phone Number [facility] Department [place] [address] * (ABNORMAL) eGFR (06/04/2022 10:52 PM CDT) eGFR 6(L) 90 - 130 mL/min/1. 73 m2 [facility] Comment: Interpretive Data Reference Interval [...] Adams MD LAB BLOOD ORDERABLES Final Result [facility] Department [place] [address] * Differential, auto (06/04/2022 10:52 PM CDT) Neutrophil abs 6.1 1.7 - 6.5 K/cumm [facility] Imm gran abs 0.1 0.0 - 0.1 K/cumm [facility] Lymphocyte abs 0.8 0.8 - 3.3 K/cumm [facility] Monocyte abs 0.8 0.2 - 0.8 K/cumm [facility] Eosinophil abs 0.0 0.0 - 0.5 K/cumm [facility] Basophil abs 0.0 0.0 - 0.1 K/cumm [facility] Neutrophil pct 79.1 % [facility] Comment: Interpretive Data Percent cell count reference ranges are not reported, since discordance with absolute values may lead to misinterpretation of CBC data. Current Interpretive Data was last revised on 2017. Imm gran pct 0.6 % [facility] Comment: Interpretive Data Percent cell count reference ranges are not reported, since discordance with absolute values may lead to misinterpretation of CBC data. Current Interpretive Data was last revised on 2017. Lymphocyte pct 10.1 % [facility] Comment: Interpretive Data Percent cell count reference ranges are not reported, since discordance with absolute values may lead to misinterpretation of CBC data. Current Interpretive Data was last revised on 2017. Monocyte pct 10.2 % [facility] Comment: Interpretive Data Percent cell count reference ranges are not reported, since discordance with absolute values may lead to misinterpretation of CBC data. Current Interpretive Data was last revised on 2017. Eosinophil pct 0.0 % [facility] Comment: Interpretive Data Percent cell count reference ranges are not reported, since discordance with absolute values may lead to misinterpretation of CBC data. Current Interpretive Data was last revised on 2017. Basophil pct 0.0 % [facility] Comment: Interpretive Data Percent cell count reference ranges are not reported, since discordance with absolute values may lead to misinterpretation of CBC data. Current Interpretive Data was last revised on 2017. Blood 06/04/2022 10:5 2 PM CDT 06/04/2022 11:56 PM CDT us Catherine Adams MD LAB BLOOD ORDERABLES Final Result [facility] Department [place] [address] * (ABNORMAL) Troponin I high-sensitivity (06/04/2022 10:52 PM CDT) Trop I hs 4,797(C) <=35 ng/L [facility] Comment: Interpretive Data For further hscTnI resources including the diagnostic algorithm and an aid in interpretation, copy and paste this link: https://bjhlab.testcatalog.org/show/[email or web address] Current Interpretive Data last revised 2020. Blood 06/04/2022 10:5 2 PM CDT 06/04/2022 11:56 PM CDT us Catherine Adams MD LAB BLOOD ORDERABLES Final Result [facility] Department [place] [address] * (ABNORMAL) Pro B-type natriuretic peptide (06/04/2022 10:52 PM CDT) NT-proBNP 15,490(H) <=300 pg/mL [facility] Comment: Interpretive Comments: A. Dyspnea in Acute [...] Adams MD LAB BLOOD ORDERABLES Final Result [facility] Department [place] [address] * (ABNORMAL) CBC with auto differential (06/04/2022 10:52 PM CDT) Pathologist [facility] WBC 7.7 3.8 - 9.9 K/cumm [facility] Hgb 9.5(L) 13.0 - 17.5 g/dL [facility] Hct 27.2(L) 38.9 - 50.3 % [facility] Plt 195 150 - 400 K/cumm [facility] MPV 11.3 9.1 - 12.3 fL [facility] RBC 3.10(L) 4.30 - 5.80 M/cumm [facility] MCV 87.7 81.3 - 96.4 fL [facility] MCH 30.6 27.1 - 33.3 pg [facility] MCHC 34.9 32.3 - 35.7 g/dL [facility] RDW CV 12.5 11.1 - 14.9 % [facility] RDW SD 40.2 35.7 - 48.1 fL [facility] NRBC abs 0.00 0.00 - 0.01 K/cumm [facility] Blood 06/04/2022 10:5 2 PM CDT 06/04/2022 11:56 PM CDT us Catherine Adams MD LAB BLOOD ORDERABLES Final Result [facility] Department [place] [address] * (ABNORMAL) Comprehensive metabolic panel (06/04/2022 10:52 PM CDT) Sodium 129(L) 135 - 145 mmol/L [facility] Potassium, pl 4.0 3.3 - 4.9 mmol/L [facility] Chloride 88(L) 97 - 110 mmol/L [facility] CO2 24 22 - 32 mmol/L [facility] Anion gap 17(H) 2 - 15 mmol/L [facility] BUN 82(H) 8 - 25 mg/dL [facility] Creatinine 8.95(H) 0.80 - 1.30 mg/dL [facility] Glucose 185 70 - 199 mg/dL [facility] Comment: Interpretive Data Fasting glucose [...] Calcium 8.6 8.5 - 10.3 mg/dL [facility] Bilirubin, total 0.5 0.1 - 1.2 mg/dL [facility] Protein, pl 6.5 6.5 - 8.5 g/dL [facility] Albumin 3.6 3.5 - 5.0 g/dL [facility] Alk phos 115 40 - 130 Units/L [facility] ALT 37 7 - 55 Units/L [facility] AST 53(H) 10 - 50 Units/L [facility] Blood 06/04/2022 10:5 2 PM CDT 06/04/2022 11:56 PM CDT Catherine Adams MD LAB BLOOD ORDERABLES Final Result [facility] Department [place] [address] * XR Chest 1 View (06/04/2022 10:50 [...] documented in this encounter Visit Diagnoses Diagnosis Diagnosis unknown Coronary artery disease involving [place] heart without angina pectoris, unspecified vessel or lesion type Unstable angina (CMS/HCC) (HCC) Intermediate coronary syndrome Hyperlipidemia, unspecified hyperlipidemia type Hypotension, unspecified hypotension type Acute hypoxemic respiratory failure (HCC) Angina pectoris (HCC) Other and unspecified angina pectoris End stage renal disease (CMS/HCC) (HCC) End stage renal disease Angina pectoris (HCC) Other and unspecified angina pectoris CAD (coronary artery disease) Coronary atherosclerosis of unspecified type of vessel, [place] or graft Unstable angina (CMS/HCC) (HCC) Intermediate coronary syndrome Hypotension, unspecified hypotension type documented in this encounter Admitting Diagnoses Diagnosis Angina pectoris (HCC) Other and unspecified angina pectoris Hypotension Unspecified hypotension documented in this encounter Administered Medications Inactive Administered Medications - up to 3 most recent administrations Medication Order MAR Action Action Date Dose Rate Site acetaminophen (TYLENOL) tablet 1,000 mg 1,000 mg, oral, Every 6 hours PRN, 1st line for pain, headaches, fever, Starting on Mon06/22/22 at 1930 Given 06/27/2022 5:47 PM PERSONAL SECRETARY 1,000 mg albuterol HFA (PROVENTIL HFA,VENTOLIN HFA,PROAIR HFA) 90 mcg/actuation inhaler 2 puff 2 puff, inhalation, Every 6 hours PRN (respite care provider), wheezing, shortness of breath, Starting on Mon06/05/22 at 0229 Given 06/15/2022 2:50 AM CDT 2 puffs aspirin chewable tablet 81 mg 81 mg, oral, Daily, First dose (after last modification) on Gregoria 06/23/22 at 0900 Given 06/29/2022 8:23 AM PERSONAL SECRETARY 81 mg Given 06/28/2022 8:56 AM PERSONAL SECRETARY 81 mg Given 06/27/2022 8:17 AM PERSONAL SECRETARY 81 mg atorvastatin (LIPITOR) tablet 80 mg 80 mg, oral, Daily, First dose (after last modification) on Gregoria 06/23/22 at 0900 Given 06/29/2022 8:23 AM PERSONAL SECRETARY 80 mg Given 06/28/2022 8:56 AM PERSONAL SECRETARY 80 mg Given 06/27/2022 8:18 AM PERSONAL SECRETARY 80 mg calcitRIOL (ROCALTROL) capsule 0.25 mcg 0.25 mcg, oral, Daily, First dose on Mon06/22/22 at 1000 Given 06/29/2022 8:23 AM PERSONAL SECRETARY 0.25 mcg Given 06/28/2022 8:56 AM PERSONAL SECRETARY 0.25 mcg Given 06/27/2022 8:17 AM PERSONAL SECRETARY 0.25 mcg calcium acetate(phosphat bind) (PHOSLO) capsule 667 mg 667 mg, oral, 4 times daily, First dose on 06/05/22 at 0800, Take with food Given 06/29/2022 12:34 PM PERSONAL SECRETARY 667 mg Given 06/29/2022 8:23 AM PERSONAL SECRETARY 667 mg Given 06/28/2022 9:00 PM PERSONAL SECRETARY 667 mg clopidogreL (PLAVIX) tablet 75 mg 75 mg, oral, Daily, First dose (after last modification) on Gregoria 06/23/22 at 0900 Given 06/29/2022 8:23 AM PERSONAL SECRETARY 75 mg Given 06/28/2022 8:56 AM PERSONAL SECRETARY 75 mg Given 06/27/2022 8:18 AM PERSONAL SECRETARY 75 mg dextrose (D10W) 10% bolus 250 mL 250 [...] for each episode of hypoglycemia., Indications: hypoglycemic disorderIndications:hypogl ycemic disorder dextrose 5% water flush 10 mL [...] for each episode of hypoglycemia., Indications: hypoglycemic disorderIndications:hypogl ycemic disorder EPINEPHrine 2 mg in sodium chloride 0.9% 100 mL (0.02 mg/mL) infusion Continuous PRN, Starting on Mon06/07/22 at 1342, Intra-Procedure (CV) Rate/Dose Change 06/07/2022 2:18 PM CDT 0.06 mcg/kg/min 25.3 mL/hr Rate/Dose Change 06/07/2022 1:46 PM CDT 0.1 mcg/kg/min 42. 2 mL/hr New Bag 06/07/2022 1:42 PM CDT 0.05 mcg/kg/min 21.1 mL/ hr ezetimibe (ZETIA) tablet 10 mg 10 mg, oral, Daily, First dose (after last modification) on Gregoria 06/23/22 at 0900 Given 06/29/2022 8:23 AM PERSONAL SECRETARY 10 mg Given 06/28/2022 8:56 AM PERSONAL SECRETARY 10 mg Given 06/27/2022 8:18 AM PERSONAL SECRETARY 10 mg fentaNYL (SUBLIMAZE) preservative free injection As needed, Starting on Mon06/07/22 at 1200, Intra-Procedure (CV) Given 06/07/2022 3:06 PM CDT 50 mcg Given 06/07/2022 12:05 PM CDT 12.5 mcg fluticasone propionate (FLONASE) 50 mcg/actuation nasal spray 2 spray 2 spray, each nostril, 2 times daily PRN, rhinitis, Starting on Mon06/05/22 at 1240 gentamicin (GARAMYCIN) 0.1 % cream topical, Daily, First dose on Mon06/28/22 at 1245, Apply to peritoneal dialysis catheter exit site daily during dressing change. DO NOT SUBSTITUTE WITH OINTMENT., Apply to affected area: dialysis access site, Indications: Infection ProphylaxisIndications:Infection Prophylaxis Given 06/28/2022 8:05 PM PERSONAL SECRETARY glucagon injection 1 mg 1 mg, intramuscular, [...] immediately following reconstitution. heparin 1,000 unit/mL injection As needed, Starting on Mon06/07/22 at 1223, Intra-Procedure (CV) Given 06/07/2022 1:19 PM CDT 1,000 Units Given 06/07/2022 12:52 PM CDT 1,000 Units Given 06/07/2022 12:35 PM CDT 3,000 Units heparin 5,000 unit/mL injection 5,000 Units 5,000 Units, subcutaneous, Every 8 hours scheduled, First dose on Mon06/22/22 at 1400, Indications: Deep Vein Thrombosis PreventionIndications:Deep Vein Thrombosis Prevention Given 06/29/2022 12:34 PM PERSONAL SECRETARY 5,000 Units Left Lower Abdomen Given 06/29/2022 5:01 AM PERSONAL SECRETARY 5,000 Units L eft Lower Abdomen Given 06/28/2022 9:00 PM PERSONAL SECRETARY 5,000 Units L eft Upper Abdomen heparin in 0.9% sodium chloride 25,000 unit/250 mL infusion (premix) Continuous PRN, Starting on Mon06/07/22 at 1430, Intra-Procedure (CV) New Bag 06/07/2022 2:30 PM CDT 14 Units/kg/hr 19.88 mL/hr insulin lispro (HumaLOG, ADMELOG) 100 unit/mL injection 4 Units 4 Units, subcutaneous, Once as needed, other, insulin pump not functional, Starting on Mon06/27/22 at 1302, For 1 dose, Administer back up dose if insulin pump is not functional. Call MD for alternate insulin regimen., Indications: Diabetes MellitusIndications:Negrita betes Mellitus INSULIN SUBCUTANEOUS PUMP (HUMALOG) 100 UNITS/ML INSULIN [...] AM, Choose Target (mg/dL): 120, Indications: Diabetes MellitusIndications:Negrita betes Mellitus Self Administered Via Pump 06/29/2022 12:34 PM PERSONAL SECRETARY 8 Units Left Lower Abdomen Self Administered Via Pump 06/29/2022 8:27 AM PERSONAL SECRETARY 7 Units Left Lower Abdomen Self Administered Via Pump 06/28/2022 5:55 PM PERSONAL SECRETARY 4.3 Unit s Left Lower Abdomen ioversoL (OPTIRAY 350) injection As needed, Starting on Mon06/07/22 at 1523, Intra-Procedure (CV) Given 06/07/2022 3:23 PM CDT 175 mL isosorbide mononitrate ER (IMDUR) extended release tablet 30 mg 30 mg, oral, Daily, First dose on Mon06/24/22 at 1715, Tablets that are scored may be split, but do not crush, chew, dissolve, open or otherwise manipulate tablet/capsule. Given 06/29/2022 8:22 AM PERSONAL SECRETARY 30 m g Given 06/28/2022 8:56 AM PERSONAL SECRETARY 30 mg Given 06/27/2022 8:18 AM PERSONAL SECRETARY 30 mg lidocaine (LIDODERM) 5 % patch 1 patch 1 patch, transdermal, Administer over 12 Hours, Daily PRN, 2nd line for pain, Starting on 06/05/22 at 0413, Do not cover the holes on the top side of the patch., Apply to affected area: back losartan (COZAAR) tablet 12.5 mg 12.5 mg, oral, Daily, First dose on 06/25/22 at 0900 Given 06/29/2022 8:22 AM PERSONAL SECRETARY 12.5 mg Given 06/28/2022 8:56 AM PERSONAL SECRETARY 12.5 mg Given 06/27/2022 8:17 AM PERSONAL SECRETARY 12.5 mg metoprolol tartrate (LOPRESSOR) immediate release tablet 25 mg 25 mg, oral, 2 times daily, First dose (after last modification) on 06/27/22 at 0900 Given 06/29/2022 8:22 AM PERSONAL SECRETARY 25 mg Given 06/28/2022 9:00 PM PERSONAL SECRETARY 25 mg Given 06/28/2022 8:56 AM PERSONAL SECRETARY 25 mg midazolam (VERSED) 1 mg/mL preservative free injection Administer over 2 Minutes, As needed, Starting on Tu06/07/22 at 1200, Intra-Procedure (CV) Given 06/07/2022 3:07 PM CDT 1 mg Given 06/07/2022 2:48 PM CDT 1 mg Given 06/07/2022 2:30 PM CDT 1 mg nitroglycerin (NITROSTAT) sublingual tablet 0.4 mg 0.4 mg, sublingual, Every 5 min PRN, chest pain, Starting on Gregoria 06/23/22 at 1358, May administer up to 3 doses per episode. norepinephrine in dextrose 5% (LEVOPHED) 8,000 mcg/250 mL (32 mcg/mL) infusion (premix) Continuous PRN, Starting on 06/07/22 at 1336, Intra-Procedure (CV) Rate/Dose Change 06/07/2022 1:59 PM CDT 0.08 mcg/kg/min 21.1 mL/hr Rate/Dose Change 06/07/2022 1:45 PM CDT 0.1 mcg/kg/min 26. 4 mL/hr New Bag 06/07/2022 1:36 PM CDT 0.05 mcg/kg/min 13.2 mL/ hr ondansetron (ZOFRAN) injection 4 mg 4 mg, intravenous, Administer over 2 Minutes, Every 6 hours PRN, nausea, vomiting, if not tolerating PO, Starting on Mon06/08/22 at 0919, Indications: Nausea and VomitingIndications:Nausea and Vomiting ondansetron ODT (ZOFRAN-ODT) disintegrating tablet 4 mg 4 mg, feeding tube, Every 6 hours PRN, nausea, vomiting, Starting on Mon06/08/22 at 0919, Indications: Nausea and VomitingIndications:Nausea and Vomiting pantoprazole DR (PROTONIX) extended release tablet 40 mg 40 mg, oral, Daily, First dose (after last modification) on 06/26/22 at 0900, Do not crush, chew, cut, dissolve, open or otherwise manipulate tablet/capsule., Indications: GI BleedIndications:GI Bleed Given 06/29/2022 8:22 AM PERSONAL SECRETARY 40 mg Given 06/28/2022 8:56 AM PERSONAL SECRETARY 40 mg Given 06/27/2022 8:18 AM PERSONAL SECRETARY 40 mg phenylephrine (JONN-SYNEPHRINE) 0.5 mg/5 mL (100 mcg/mL) in sodium chloride 0.9% (premix) As needed, Starting on Mon06/07/22 at 1319, Intra-Procedure (CV) Given 06/07/2022 1:21 PM CDT 200 mcg Given 06/07/2022 1:19 PM CDT 300 mcg polyvinyl alcohol-povidone (REFRESH CLASSIC) 1.4-0.6 % ophthalmic solution 1 drop 1 drop, each eye, 4 times daily, First dose on Gregoria 06/16/22 at 2100 Given 06/29/2022 12:34 PM PERSONAL SECRETARY 1 drop Given 06/29/2022 8:22 AM PERSONAL SECRETARY 1 drop Given 06/28/2022 9:01 PM PERSONAL SECRETARY 1 drop ramelteon (ROZEREM) tablet 8 mg 8 mg, feeding tube, Nightly PRN, sleep, Starting on Mon06/08/22 at 0919, Indications: Sleep-Onset InsomniaIndications:Sleep-Onset Insomnia Given 06/08/2022 8:41 PM CDT 8 mg documented in this encounter Discontinued Medications [...] Recently Administered Medications Times are shown in PERSONAL SECRETARY. Scheduled Medication Order 06/27/2022 06/28/2022 06/29/2022 aspirin [...] Subramanian RN) 0856 (Given - Provider: Manda aLke RN)1258 (Given - Provider: Manda Lake RN)1752 [...] Lake RN) 0823 (Given - Provider: Manda Lake, LUAN) gentamicin (GARAMYCIN) 0.1 % cream topical, Daily, [...] at 1400, Indications: Deep Vein Thrombosis Prevention 06 (Given - Provider: Mell Wild RN)1432 (Given - Provider: Manda Lake RN)2151 (Given - Provider: Sasha Subramanian, RN) 0601 (Given - Provider: Sasha Subramanian, RN)1435 (Given - Provider: Manda Lake RN)2100 (Given - Provider: Radha Paul, LUAN) 0501 (Given - Provider: Radha Paul, LUAN)1234 (Given - Provider: Manda Lake, LUAN) insulin glargine (LANTUS, SEMGLEE) 100 unit/mL injection [...] NPO Status 0200 (Given - Provider: Sasha Subramanian RN) insulin lispro (HumaLOG, ADMELOG) 100 unit/mL [...] Lake RN) 0822 (Given - Provider: Manda Lake, LUAN) losartan (COZAAR) tablet 12.5 mg 12.5 mg, oral, Daily, First dose on Mon06/25/22 at 0900 0817 (Given - Provider: Manda Lake RN) 0856 (Given - Provider: Manda Lake, LUAN) 0822 (Given - Provider: Manda Lake, LUAN) metoprolol tartrate (LOPRESSOR) immediate release tablet 25 mg 25 mg, oral, 2 times daily, First dose (after last modification) on Mon06/27/22 at 0900 0818 (Given - Provider: Manda Lake, LUAN)2150 (Given - Provider: Sasha Subramanian, RN) 0856 (Given - Provider: Manda Lake RN)2100 (Given - Provider: Radha Paul RN) 0822 [...] at 2100 0818 (Given - Provider: Manda Lake RN)1209 (Given - Provider: Manda Lake RN)1747 (Given - Provider: Manda Lake, LUAN)2151 (Given - Provider: Sasha Subramanian, LUAN) 0856 (Given - Provider: Manda Lake RN)1437 (Given - Provider: Manda Lake RN)1752 (Given - Provider: Manda Lake, LUAN)2101 (Given - Provider: Radha Paul, LUAN) 0822 (Given - Provider: Manda Lake RN)1234 (Given - Provider: Manda Lake, LUAN) potassium chloride ER (KLOR-CON) extended release tablet [...] Dialysis 2006 (New Bag - Provider: Pj Duckworth, RN) 0616 (Due: Stopped - Provider: Pj Duckworth RN) Extraneal 7.5% AMBU-FLEX 2,500 mL dialysis solution (CANCELED) intraperitoneal, Continuous, Starting on Mon06/28/22 at 1245, For 24 hours, CCPD bag number: 4, Indications: Peritoneal Dialysis 2004 (New Bag - Provider: Tequila Ingram, LUAN) 0545 (Due: Stopped - Provider: Tequila Ingram [...] Administered Via Pump - Provider: Manda Lake RN)2103 (Hold - Provider: Radha Paul RN [...] 2 puff, inhalation, Every 6 hours PRN (respite care provider), wheezing, shortness of breath, Starting on Mon06/05/22 [...] Count Last Ordered Date First Ordered Date Dianeal low calcium-dextrose 2.5 % 2,500 mL dialysis solution 12 06/28/2022 06/04/2022 Dianeal low calcium-dextrose 2.5 % 5,000 mL dialysis solution 36 06/28/2022 06/04/2022 Extraneal 7.5% AMBU-FLEX 2,5 00 mL dialysis solution 11 06/28/2022 06/05/2022 gentamicin (GARAMYCIN) 0.1 % cream 10 202106/04/2022 INSULIN SUBCUTANEOUS PUMP (H UMALOG) 100 UNITS/ML INSULIN PUMP INFUSION (HumaLOG) patient supplied pump 0-25 Units 2 06/28/2022 022 dextrose (D10W) 10% bolus 250 mL 9 06/27/20 22 06/05/2022 dextrose gel in packet 15 g 8 06/27/2022 06/05/2022 glucagon injection 1 mg 8 06/27/2022 1001/2022 insulin lispro (HumaLOG, ADM ELOG) 100 unit/mL injection 4 Units 2 06/27/2022 06/21/2022 insulin NPH (HumuLIN N, Abel JAYA N) 100 unit/mL injection 45 Units 1 06/27/2022 INSULIN PUMP REFILL lispro ( HumaLOG, ADMELOG) solution 300 Units 1 06/27/2022 potassium chloride ER (KLOR- CON) extended release tablet 20 mEq 1 06/27/2022 Dianeal low calcium-dextrose 2.5 % 2,000 mL dialysis solution 2 06/26/2022 06/05/2022 Extraneal 7.5% ULTRABAG 2,00 0 mL dialysis solution 3 06/26/2022 06/04/2022 insulin glargine (LANTUS, SE MGLEE) 100 unit/mL injection 35 Units 1 06/26/2022 insulin lispro (HumaLOG, ADM ELOG) 100 unit/mL injection 10 Units 4 06/26/2022 06/16/2022 insulin lispro (HumaLOG, ADM ELOG) 100 unit/mL injection 2 Units 2 06/26/2022 06/11/2022 insulin NPH (HumuLIN N, Abel JAYA N) 100 unit/mL injection 40 Units 1 06/26/2022 metoprolol tartrate (LOPRESS OR) immediate release tablet 25 mg 4 06/26/2022 06/22/[address] (PROTONIX) e xtended release tablet 40 mg 3 06/25/2022 06/05/2022 calcium carbonate (TUMS) marci wable tablet 500 mg 1 06/24/2022 Dianeal low calcium-dextrose 1.5 % 2,500 mL dialysis solution 3 06/24/2022 06/05/2022 insulin glargine (LANTUS, SE MGLEE) 100 unit/mL injection 33 Units 6 06/24/2022 06/05/2022 insulin lispro (HumaLOG, ADM ELOG) 100 unit/mL injection 5 Units 6 06/24/2022 06/12/2022 insulin lispro (HumaLOG, ADM ELOG) 100 unit/mL injection 8 Units 2 06/24/2022 06/23/2022 insulin NPH (HumuLIN N, Abel JAYA N) 100 unit/mL injection 35 Units 1 06/24/2022 isosorbide mononitrate ER (I MDUR) extended release tablet 30 mg 2 06/24/2022 06/05/2022 losartan (COZAAR) tablet 12.5 mg 1 06/24/20 ranolazine ER (RANEXA) exten ded release tablet 500 mg 2 06/24/2022 06/05/2022 insulin glargine (LANTUS, SE MGLEE) 100 unit/mL injection 28 Units 1 06/23/2022 insulin glargine (LANTUS, SE MGLEE) 100 unit/mL injection 30 Units 3 06/23/2022 06/18/2022 insulin lispro (HumaLOG, ADM ELOG) 100 unit/mL injection 6 Units 4 06/23/2022 06/05/2022 insulin NPH (HumuLIN N, Abel JAYA N) 100 unit/mL injection 30 Units 1 06/23/2022 metoprolol tartrate (LOPRESS OR) immediate release tablet 50 mg 2 06/23/2022 06/05/2022 nitroglycerin (NITROSTAT) diego blingual tablet 0.4 mg 2 06/23/2022 06/04/2022 acetaminophen (TYLENOL) tablet 1,000 mg 1 1 08/22/2021 acetaminophen (TYLENOL) tablet 650 mg 2 09/202106/15/2022 aspirin chewable tablet 81 mg 3 06/22/2022 06/07/2022 atorvastatin (LIPITOR) tablet 80 mg 3 06/2206/05/2022 calcitRIOL (ROCALTROL) capsule 0.25 mcg 3 1 08/22/2021 06/05/2022 clopidogreL (PLAVIX) tablet 75 mg 3 022 06/05/2022 ezetimibe (ZETIA) tablet 10 mg 3 06/22/2022 06/05/2022 heparin 25 Units/mL in dextr ose 5% 500 mL Impella purge fluid 2 06/22/2022 06/07/2022 heparin 5,000 unit/mL inject ion 5,000 Units 1 06/22/2022 heparin in 0.9% sodium chlor deana 25,000 unit/250 mL infusion (premix) 4 06/22/2022 06/05/2022 insulin lispro (HumaLOG, ADM ELOG) 100 unit/mL injection 0-5 Units 3 06/22/2022 06/05/2022 insulin NPH (HumuLIN N, Abel JAYA N) 100 unit/mL injection 20 Units 1 06/22/2022 barium sulfate (VARIBAR NECT AR) 40 % (w/v) nectar 1 06/21/2022 barium sulfate (VARIBAR PUDD ING) 40 % (w/v), 30% (w/w) pudding 1 06/21/2022 barium sulfate (VARIBAR THIN LIQUID) 81 % (w/w) thin liquid 1 06/21/2022 barium sulfate (VARIBAR) 40 % (w/v) 29% (w/w) suspension 250 mL 1 06/21/2022 insulin lispro (HumaLOG, ADM ELOG) 100 unit/mL injection 0-10 Units 4 06/21/2022 06/05/2022 insulin NPH (HumuLIN N, Abel JAYA N) 100 unit/mL injection 15 Units 2 06/21/2022 06/16/2022 metoprolol tartrate (LOPRESS OR) immediate release tablet 12.5 mg 3 06/21/2022 06/06/2022 amiodarone (NEXTERONE) 150 m g/100 mL (1.5 mg/mL) in dextrose (premix) 150 mg 5 06/20/202206/18 heparin 1,000 unit/mL injection 1.5-6.9 mL 5 06/20/2022 06/07/2022 NxStage 3-potassium/3-calcium solution 3 06/13/2022 potassium, sodium phosphates (PHOS-NAK) 280-160-250 mg packet 1 packet 1 06/20/2022 sodium chloride 0.9% IVPB 0-250 mL 4 202106/07/2022 vasopressin in 5% dextrose ( VASOSTRICT) 20 unit/100 mL (0.2 unit/mL) infusion - ADS Override Pull 1 06/20/2022 amiodarone in dextrose (NEXT ERONE) 360 mg/200 mL (1.8 mg/mL) infusion (premix) 2 06/19/2022 dextrose 5% infusion 10 06/19/2022 022 insulin regular bolus from bag 4-10 Units 8 06/19/2022 06/07/2022 insulin regular bolus from bag 4-6 Units 8 06/19/2022 06/07/2022 insulin regular in 0.9% sodi um chloride (MYXREDLIN) 100 unit/100 mL (1 unit/mL) infusion (premix) 9 06/19/2022 06/07/2022 magnesium sulfate 2 g/50 mL in water (premix) 2 g 3 06/19/2022 06/07/2022 norepinephrine in 0.9% sodiu m chloride (LEVOPHED) 8,000 mcg/250 mL (32 mcg/mL) infusion (premix) 2 06/19/2022 06/07/2022 lidocaine PF (XYLOCAINE) 10 mg/mL (1 %) preservative free injection 1 06/18/2022 meropenem (MERREM) 2,000 mg/ 120 mL in sodium chloride 0.9% (premix) 2,000 mg 1 06/18/2022 NxStage 4-potassium/2.5-calcium solution 6 06/18/2022 06/07/2022 sodium chloride 0.9% solution 1,000 mL 4 06/07/2022 vancomycin (VANCOCIN) 2,000 mg in sodium chloride 0.9% 500 mL IVPB 2 06/18/2022 06/10/2022 potassium chloride ER (KLOR- CON) extended release tablet 30 mEq 1 06/17/2022 insulin glargine (LANTUS, SE MGLEE) 100 unit/mL injection 40 Units 1 06/16/2022 insulin regular (HumuLIN R, NovoLIN R) 100 unit/mL injection 3 Units 1 06/16/2022 insulin regular (HumuLIN R, NovoLIN R) 100 unit/mL injection 4 Units 3 06/16/2022 06/05/2022 meropenem (MERREM) 1,000 mg/ 110 mL in sodium chloride 0.9% (premix) 1,000 mg 2 06/16/2022 1 midazolam (VERSED) 1 mg/mL i n sodium chloride 0.9% (premix) solution 2 06/16/2022 06/11/20 midazolam (VERSED) bolus from bag 2 mg 1 polyvinyl alcohol-povidone ( REFRESH CLASSIC) 1.4-0.6 % ophthalmic solution 1 drop 1 06/16/2022 acetaminophen (TYLENOL) tablet 325 mg 2 06/05/2022 insulin lispro (HumaLOG, ADM ELOG) 100 unit/mL injection 7 Units 1 06/15/2022 midazolam (VERSED) 1 mg/mL injection 2 mg 3 06/15/2022 perflutren protein-a (OPTISO N) 0.22 mg/mL injection - ADS Override Pull 2 06/14/2022 06/08/2022 phenylephrine (JONN-SYNEPHRIN E) 1 mg/10 mL (100 mcg/mL) in sodium chloride 0.9% (premix) - ADS Override Pull 1 06/14/2022 vancomycin 1,750 mg/517.5 mL sodium chloride 0.9% (premix) 1,750 mg 2 06/14/2022 vancomycin 750 mg/257.5 mL i n sodium chloride 0.9% (premix) 750 mg 1 06/14/2022 Dianeal low calcium-dextrose 1.5 % 2,000 mL dialysis solution 1 06/13/2022 heparin 1,000 unit/mL inject ion 2,000 Units 2 06/13/2022 06/05/2022 heparin 1,000 unit/mL inject ion 3,000 Units 2 06/13/2022 06/05/2022 perflutren protein-a (OPTISO N) 3 mL in sodium chloride 0.9% 8 mL syringe 2 06/13/20222021 senna 1.76 mg/mL syrup 8.8 mg 1 06/12/2022 vasopressin in 5% dextrose ( VASOSTRICT) 20 unit/100 mL (0.2 unit/mL) infusion 2 06/12/202206/10 alteplase (CATHFLO) 1 mg/mL syringe (premix) 1 mg 2 06/11/2022 06/09/2022 alteplase (CATHFLO) 1 mg/mL syringe (premix) 2 mg 2 06/11/2022 bumetanide (BUMEX) 0.25 mg/mL infusion 1 bumetanide (BUMEX) 0.25 mg/m L injection 4 mg 1 06/11/2022 heparin 1,000 unit/mL injection syringe 1 1 dexmedeTOMIDine in 0.9% sodi um chloride (PRECEDEX) 400 mcg/100 mL (4 mcg/mL) infusion (premix) 1 06/10/2022 epoprostenol (VELETRI) 20 mc g/ml in 0.9% sodium chloride inhalation solution 7 06/10/202205/21 fentaNYL (SUBLIMAZE) preserv ative free injection 1 06/10/2022 lidocaine (XYLOCAINE) 10 mg/ mL (1 %) injection 1 06/10/2022 polyethylene glycol (MIRALAX) packet 17 g 7 06/10/2022 06/05/2022 senna (SENOKOT) tablet 1 tablet 2 2 vasopressin 20 unit/mL injec tion - ADS Override Pull 1 06/10/2022 chlorhexidine (PERIDEX) 0.12 % solution 15 mL 1 06/09/2022 DOPamine in dextrose 5% 400 mg/250 mL (1,600 mcg/mL) infusion (premix) - ADS Override Pull 1 06/09/2022 calcitRIOL (ROCALTROL) 1 mcg /mL oral solution 0.25 mcg 1 06/08/2022 dextrose 10% infusion 1 06/08/2022 docusate (COLACE) 10 mg/mL o ral liquid 100 mg 1 06/08/2022 docusate sodium (COLACE) capsule 100 mg 2 1 06/05/2022 ondansetron (ZOFRAN) injection 4 mg 2 06/0806/05/2022 ondansetron ODT (ZOFRAN-ODT) disintegrating tablet 4 mg 2 06/08/2022 06/05/2022 ramelteon (ROZEREM) tablet 8 mg 2 2 06/05/2022 aspirin chewable tablet 162 mg 1 06/07/2022 bisacodyL (DULCOLAX) suppository 10 mg 1 bisacodyl EC (DULCOLAX EC) tablet 10 mg 1 1 clopidogreL (PLAVIX) tablet 600 mg 1 2021 dextrose 5% water flush 10 mL 1 06/07/2022 dextrose 5% water flush 10-30 mL 1 06/07/20 fentaNYL (SUBLIMAZE) bolus from bag 50 mcg 2 06/07/2022 fentaNYL (SUBLIMAZE) preserv ative free injection 50 mcg 2 06/07/2022 fentaNYL 2500 mcg/50 mL betzy ette/syringe (premix) 1 06/07/2022 hydrALAZINE (APRESOLINE) tablet 100 mg 2 06/05/2022 insulin regular (HumuLIN R, NovoLIN R) 100 unit/mL injection 5 Units 2 06/07/2022 insulin regular (HumuLIN R, NovoLIN R) 100 unit/mL injection 7 Units 3 06/07/2022 06/05/2022 insulin regular (HumuLIN R, NovoLIN R) 100 unit/mL injection 8 Units 1 06/07/2022 lidocaine EPINEPHrine (XYLOC WILSON with EPI) 0.5 %-1:200,000 injection 10 mL 1 06/07/2022 pantoprazole (PROTONIX) 4 mg /mL injection 40 mg 1 06/07/2022 potassium chloride (KLOR-CON ) packet 40 mEq 1 06/07/2022 potassium chloride 20 mEq/50 mL in sterile water (premix) 20 mEq 1 06/07/2022 potassium chloride 40 mEq/10 0 mL in sterile water (premix) 40 mEq 3 06/07/2022 potassium chloride ER (KLOR- CON) extended release tablet 60 mEq 1 06/07/2022 propofol (DIPRIVAN) 10 mg/mL infusion 1 sodium bicarbonate 8.4 % (1 mEq/mL) injection 50 mEq 1 06/07/2022 sodium chloride 0.45% infusion 1 06/07/2022 sodium chloride 0.9% infusion 5 06/07/2022 sodium chloride 0.9% solution 3 06/07/2022 cloNIDine (CATAPRES) tablet 0.1 mg 1 2021 Dianeal low calcium-dextrose 4.25 % 5,000 mL dialysis solution 1 06/06/2022 diphenhydrAMINE (BENADRYL) capsule 50 mg 1 06/06/2022 insulin lispro (HumaLOG, ADM ELOG) 100 unit/mL injection 9 Units 1 06/06/2022 nystatin 100,000 unit/mL ora l suspension 500,000 Units 1 06/06/2022 predniSONE (DELTASONE) tablet 50 mg 1 06/06 albuterol HFA (PROVENTIL HFA ,VENTOLIN HFA,PROAIR HFA) 90 mcg/actuation inhaler 2 puff 1 06/05/2022 amLODIPine (NORVASC) tablet 10 mg 1 022 aspirin enteric coated tablet 81 mg 1 06/05 atorvastatin (LIPITOR) tablet 40 mg 1 06/05 azithromycin (ZITHROMAX) tablet 500 mg 1 bumetanide (BUMEX) tablet 4 mg 1 06/05/2022 calcium acetate(phosphat bin d) (PHOSLO) capsule 667 mg 1 06/05/2022 cefTRIAXone (ROCEPHIN) 1,000 mg/10 mL in sterile water (premix) 1,000 mg 1 06/05/2022 cloNIDine (CATAPRES) tablet 0.3 mg 1 2021 colchicine (COLCRYS) tablet 0.6 mg 1 2021 ergocalciferol (VITAMIN D) c apsule 50,000 Units 1 06/05/2022 famotidine (PEPCID) tablet 10 mg 1 06/05/20 fluticasone propionate (FLON ASE) 50 mcg/actuation nasal spray 2 spray 1 06/05/2022 furosemide (LASIX) 10 mg/mL injection - ADS Override Pull 1 06/05/2022 furosemide (LASIX) 10 mg/mL injection 120 mg 1 06/05/2022 furosemide (LASIX) 10 mg/mL injection 240 mg 1 06/05/2022 furosemide (LASIX) tablet 120 mg 1 06/05/20 gemfibroziL (LOPID) tablet 600 mg 1 022 heparin 1,000 unit/mL inject ion 4,000 Units 1 06/05/2022 insulin lispro (HumaLOG, ADM ELOG) 100 unit/mL injection 3 Units 1 06/05/2022 insulin regular (HumuLIN R, NovoLIN R) 100 unit/mL injection 6 Units 1 06/05/2022 lidocaine (LIDODERM) 5 % patch 1 patch 1 meropenem (MERREM) 500 mg/10 5 mL in sodium chloride 0.9% (premix) 500 mg 1 06/05/2022 metOLazone (ZAROXOLYN) tablet 5 mg 2 2021 metoprolol (LOPRESSOR) tablet 100 mg 1 05/21 nitroglycerin in dextrose 5% 50 mg/250 mL (200 mcg/mL) infusion (premix) 2 06/05/2022 phenoL (CHLORASEPTIC) 1.4 % oral spray 1 spray 1 06/05/2022 terazosin (HYTRIN) capsule 2 mg 1 heparin 5,000 unit/mL inject ion 7,500 Units 1 06/04/2022 influenza quadrivalent 2022 (FLULAVAL,FLUARIX,FLUZONE) 60 mcg (15 mcg x 4)/0.5 mL vaccine (STANDARD age 6 months and up) 0.5 mL 1 06/04/2022 Lab Orders Without Results Count Last Ordered D ate First Ordered Date POCT GLUCOSE DEVICE 159 06/29/2022 06/04/20 22 BETA-HYDROXYBUTYRATE 3 06/16/2022 022 RESPIRATORY PATHOGEN PANEL [...] Date First Orde red Date 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
--- OUTSIDE RECORDS SUMMARY | 2024-08-18 13:14 | XMS_ITS | Encounter Summary ---
Author Organization [facility] Address [address] [facility] [address] [place] [id number] Care Team Providers Care Branch Manager Trainee Name Role Phone Aditya Castro MD Primary Care Provider [phone] Encounter Details Date Type Department Care Team (Late st Contact Info) Description 02/02/2021 Orders Only [facility] Cardiology [address] [facility] [address] [facility] [address] [place] [address] Cyndi Nielson MD [address] [facility] [address] [place] [address] Social History Tobacco Use Types [...] file 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 Gender Identity Not on file Sexual Orientation Not on file documented as of this encounter Plan of Treatment Not on file documented as of this encounter Procedures Procedure Name Priority Date/Time Associated Diagnosis Comments CARDIOLOGY DOCUMENT SCAN Routine 02/02/2021 documented in this encounter Results * SCAN - CARDIOLOGY (02/02/2021) Anatomical Region Laterality Modality Other us Cyndi Nielson MD CV CARDIAC SERVICES PROCEDU RES Final Result documented in this encounter Visit Diagnoses Not on filedocumented in this encounter Care Teams Branch Manager Trainee Relationship Specialty Start Date End Date Aditya Castro MD [address] [facility] [place] [place] [address] PCP - General 10/17/19 documented as of this encounter
--- OUTSIDE RECORDS SUMMARY | 2024-08-18 13:14 | XMS_ITS | Encounter Summary ---
Author Organization [facility] Address [address] [place] [address] Phone Care Team Providers Care Asic Engineer Name Role Phone Jhonatan Bellamy MD Primary Care Provider [phone] Encounter Details Date Type Department Care Team (Late st Contact Info) Description 03/15/2018 Orders Only [facility] Rheumatology [address] [facility] Advanced Medicine 5th [place] [address] [place] [address] Alexis Gonzalez RMA Chronic gout with tophus, unspecified cause, unspecified site (Primary Dx) Social History Tobacco Use Types Packs/Day Years Used Date Smoking Tobacco: Never Smokeless Tobacco: Former Alcohol Use Standard Drinks/Week Comments No 0 (1 standard drink = 0.6 oz pur e alcohol) Sex and Gender Information Value Date Recorded Sex Assigned at Not on file 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
--- OUTSIDE RECORDS SUMMARY | 2024-08-18 13:14 | XMS_ITS | Encounter Summary ---
Author Organization [facility] Address [address] [place] [address] Care Team Providers Care Non Food Receiving Clerk Name Role Phone Aditya Castro MD Primary Care Provider [phone] Encounter Details Date Type Department Care Team (Late st Contact Info) Description 01/21/2021 8:30 AM CDT - 01/21/2021 10:00 AM CDT Surgery [facility] Cardiac Catheterization Lab [address] [place] [address] Hamlet Hubbard Jr., MD [address] [place] [id number] LEFT HEART CATHETERIZATION WITH CORONARY ANGIOGRAPHY AND WITH OR WITHOUT LEFT VENTRICULOGRAM [id number] Surgery Details Date/Time Status Location OR Service Patient Class Case Class Case Type Trauma Case? 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 Gender Identity Not on file Sexual Orientation Not on file documented as of this encounter Last Filed Vital Signs Vital Sign Reading Time Taken Comments Blood Pressure 174/71 01/21/2021 9:55 AM CDT Pulse 60 01/21/2021 10:00 AM CDT Temperature 37.1 ??C (98.7 ??F) 01/21/2021 6:23 AM CD T Respiratory Rate 16 01/21/2021 6:23 AM CDT Oxygen Saturation 95% 01/21/2021 10:00 AM CDT Inhaled Oxygen Concentration - - Weight 132.9 kg (293 lb) 01/21/2021 6:23 AM CDT Height 177.8 cm (5' 10 ) 01/21/2021 6:23 AM CDT Body Mass Index 42.04 01/21/2021 6:23 AM CDT documented in this encounter Discharge Instructions * Discharge Instructions* Carey Khan RN - 01/21/2021 11:42 AM CDT 7 units humalog given to you at 11:30am today 01/21/2021 Cardiac Cath Discharge Instructions Activity: -No heavy lifting (over 10 pounds) for 1 week -No driving for 3 days AFTER procedure -No strenuous activity with affected leg for one week (i.e. Jogging, swimming, running, raking, shoveling, or mowing lawn) -No exercising or excessive use of stairs for 1 week -Avoid alcohol for 24 hours Puncture Site: -Remove dressing (anytime) next day. LEFT GROIN -Wash with soap and water daily in shower (to prevent infection, a shower is preferred to a tub bath for at least a week). -Do not apply any creams or lotions to puncture site. What to watch for: -Increased bruising -Swelling or hardening around site (hematoma-bleeding underneath the skin, call 911) -Temperature greater than 100*F (call doctor's office) -Redness, drainage, or foul odor at puncture site (?sign of infection--call doctor's office) -Pain that will not go away (check puncture site, monitor for hematoma, O.T.C. pain medication) -Bleeding (arterial puncture--call 911) You may develop scar tissue at the puncture site. This normal and will feel like a small lump underthe skin. You may feel this bump for some time. If any of the above occur or you have any questions contact your Medical Records Administrator and follow up with your Primary Care Physician as instructed. Doctor office phone number: Moderate Sedation WHAT YOU NEED TO KNOW: Moderate sedation, or conscious sedation, is medicine used during procedures to help you feel relaxed and calm. You will be awake and able to follow directions without anxiety or pain. You will remember little to none of the procedure. You may feel tired, weak, or unsteady on your feet after you get sedation. You may also have trouble concentrating or short-term memory loss. These symptoms should go away in 24 hours or less. DISCHARGE INSTRUCTIONS: Call 911 or have someone else call for any of the following: ?? You have sudden trouble breathing. ?? You cannot be woken. Seek care immediately if: ?? You have a severe headache or dizziness. ?? Your heart is beating faster than usual. Contact your healthcare provider if: ?? You have a fever over 100*F ?? You have nausea or are vomiting for more than 8 hours after the procedure. ?? Your skin is itchy, swollen, or you have a rash. ?? You have questions or concerns about your condition or care. Self-care: ?? Have someone stay with you for 24 hours. This person can drive you to errands and help you do things around the house. This person can also watch for problems. ?? Rest and do quiet activities. Stand up slowly to prevent dizziness and falls. Take short walks around the house with another person. ?? Do not drive or use dangerous machines or tools for 48 hours. You may injure yourself or others.Examples include a lawnmower, saw, or drill. ?? Do not make important decisions for 24 hours. For example, do not sign important papers or invest money. ?? Drink liquids as directed. Liquids help flush the sedation medicine out of your body. Ask how much liquid to drink each day and which liquids are best for you. ?? Eat small, frequent meals to prevent nausea and vomiting. Start with clear liquids such as juiceor broth. If you do not vomit after clear liquids, you can eat your usual foods. ?? Do not drink alcohol or take medicines that make you drowsy. This includes medicines that help you sleep and anxiety medicines. Ask your healthcare provider if it is safe for you to take pain medicine. Follow up with your healthcare provider as directed: Write down your questions so you remember to ask them during your visits. [phone] Dr. Hubbard documented in this encounter Medications at Time of Discharge aspirin 81 mg enteric coated tabletIndications :Myocardial Reinfarction Prevention Take 1 tablet (81 mg total) by mouth daily 11/07/2013 atorvastatin (LIPITOR) 80 mg tabletIndications :hyperlipidemia Take 1 tablet (80 mg total) by mouth daily calcitRIOL (ROCALTROL) 0.25 mcg capsuleIndication s:hypophosphatemi a Take 1 capsule (0.25 mcg total) by mouth daily calcium acetate,phosphat bind, (PHOSLO) 667 mg capsuleIndication s:hypocalcemia Take 1 capsule (667 mg total) by mouth 4 (four) times a day (with meals and nightly) With meals and snack cetirizine (ZyrTEC) 10 mg tabletIndications :Allergic Rhinitis Take 1 tablet (10 mg total) by mouth daily as needed for allergies cholecalciferol (VITAMIN D-3) 2000 unit tabletIndications :Vitamin D Deficiency Take 25 tablets (50,000 Units total) by mouth once a week EZETIMIBE ORAL Take 10 mg by mouth daily ketoconazole (NIZORAL) 2 % shampoo APPLY EXTERNALLY 2 TO 3 TIMES EVERY WEEK NEEDED 04/23/2019 nitroglycerin (NITROSTAT) 0.4 mg SL tablet 12/27/2017 omeprazole (PriLOSEC) 20 mg capsuleIndication s:GI Bleed,prevention Take 1 capsule (20 mg total) by mouth daily pen needle, diabetic (BD Ultra-Fine Short Pen Needle) 31 gauge x 5/16 needle 01/30/2018 amLODIPine (NORVASC) 10 mg tablet Take 10 mg by mouth daily 2 cloNIDine (CATAPRES) 0.1 mg tablet Take 0.2 mg by mouth every 8 (eight) hours 02/24/2018 2 clopidogrel (PLAVIX) 75 mg tablet TAKE 1 TABLET BY MOUTH DAILY 90 tablet 01/28/2019 4 colchicine (Colcrys) 0.6 mg tablet Take one tablet po every Monday, Monday and Monday. 2 doxycycline monohydrate (ADOXA) 50 mg tablet Take 50 mg by mouth 2 (two) times a day 2 furosemide (LASIX) 80 mg tablet Take 80 mg by mouth 2 (two) times a day 2 hydrALAZINE (APRESOLINE) 100 mg tablet TAKE 1 TABLET BY MOUTH EVERY 8 HOURS 90 tablet 5 10/25/2018 2 insulin aspart U-100 (NovoLOG) 100 unit/mL cartridge Inject under the skin Basal rate 1200 am to 0500 am 5.25; from 5 am to 8 pm 1.8; from 8pm to 12 am 5.5 2 isosorbide mononitrate ER (IMDUR) 30 mg 24 hr tablet TAKE 1 TABLET BY MOUTH EVERY DAY 90 tablet 12/24/2018 4 meloxicam (MOBIC) 7.5 mg tablet Take 7.5 mg by mouth 2 (two) times a day 2 metoprolol (LOPRESSOR) 100 mg tablet Take 1 tablet (100 mg total) by mouth every 12 (twelve) hours 4 ranolazine ER (RANEXA) 500 mg 12 hr tablet Take 500 mg by mouth 2 (two) times a day 2 UNABLE TO FIND Zalacyclovir take one tablet three times daily 2 documented as of this encounter Discharge Disposition Disposition Code Departure Means Destination Discharge to home or self care documented in this encounter H&P Notes * Hamlet Hubbard Jr., MD - 01/21/2021 9:07 AM CDT I have reviewed the H&P, examined the patient, and endorse the findings as written. Plan of Care : Based on the above findings, I consider Juvenal Daigle Jr. to be an acceptable risk for : Procedure(s): LEFT HEART CATHETERIZATION WITH CORONARY ANGIOGRAPHY AND WITH OR WITHOUT LEFT VENTRICULOGRAM [address] Source Note - Hamlet Hubbard Jr., MD - 01/20/2021 1:36 PM CDT documented in this encounter Nursing Notes * Carey Khan RN - 01/21/2021 12:40 PM CDT 1210: Read and gave patient discharge instructions. Pt denies questions. Pt verbalizes understanding to not drive for 3 days. After patient was dressed, iv was removed, but pt also had tape/cottonball on LAC-attempted to remove tape quickly, causing small skin tear. Antibiotic ointment, tegaderm applied. Site did not bleed after skin removal, but pt states this happens sometimes unless paper tape is used. Discharged pt via wheelchair, patient's mother outside surgery center already waiting for patient. Pt states we were great with him, appeared in good spirits upon discharge. documented in this encounter Miscellaneous Notes * Pre-Sedation Documentation - Hamlet Hubbard Jr., MD - 01/21/2021 9:13 AM CDT Sedation Plan ASA 3 - Severe systemic disease Mallampati class: I. Risks, benefits, and alternatives discussed with patient. * Pre-Procedure Instructions - Jes Anders RN - 01/20/2021 10:43 AM CDT We are pleased that you and your doctor have chosen [facility] for your surgery. We hope that the following information will help make your visit a pleasant one. Surgery Date: 01/21/2021 arrive at 0630 Before your surgery: ?? Notify your doctor of ANY change in your health such as a cold, sore throat, fever, any infection or a change in the problem for which you are having your surgery. ?? Follow any instructions given to you by your doctor or surgeon. ?? Complete COVID Testing 3-4 days prior to surgery; after testing return home and self isolate until Day of Surgery. Check with your doctor if you need to STOP taking: ?? Aspirin (ordered by your doctor) One week before surgery STOP taking: ?? All herbal/vitamin supplements ?? Aspirin (not ordered by your doctor) ?? Aleve, Advil, Motrin, Ibuprofen, or other similar medications (Tylenol is okay). ?? Naproxen and Meloxicam ?? Diclofenac (oral and topical) ?? Fish Oil, CoQ 10, Cod Liver Oil and other similar products. 24 hours before your surgery: ?? No smoking or alcoholic drinks. ?? Follow your physician's instructions for Metformin/Glucophage. ?? Hydrate yourself Night before your surgery: ?? Do not eat or drink anything after midnight. ?? Follow your doctors instructions for your insulin pump ?? Follow surgeon's instructions for anti-bacterial (CHG) shower night before and morning of surgery. ?? The night before surgery sleep on clean linen, no pets. Day of surgery: ?? Do NOT swallow any water when you brush your teeth. ?? Follow your doctors instructions for your insulin pump and any diabetic medications ?? ONLY take these pills with a tiny sip of water. Pre-Surgery Instructions: Medication Instructions ??? Take the medications your doctor instructed you doctor instructed you to take the morning of your surgery. Any questions please call your doctor. ?? Use no cologne, make-up, nail kiswahili, lotions, oils or powders on your skin. ?? Powder free deodorant is permitted. ?? Wear comfortable clothes that will not be tight in the area of your surgery. ?? Leave all valuables and jewelry (including all body piercing jewelry) at home. ?? If you use a CPAP machine, please bring it with you to wear after your surgery. ?? Please bring your photo ID, insurance cards, and medication list with you. ?? Prescriptions can be filled onsite prior to discharge. Please have your co pay available. ?? Check in at the Registration Desk. ?? If you are 17 years old or younger, a parent or guardian must come with you. ?? You may have one visitor daily (visitor must be over the age of 18). After your Outpatient Surgery: ?? You must have a responsible adult to drive you home, you will not be allowed to drive or take a cab home. ?? We recommend you have someone stay with you for 24 hours after your surgery. What to bring if you are spending the night with us: ?? Bring toiletry items such as: robe, slippers, toothbrush, toothpaste, brush or comb. ?? Bring contact lens, hearing aids, glass cases and denture container if you use any of these items. ?? The hospital will provide you with a gown. Questions or concerns: ?? If you have any questions or concerns regarding your procedure, contact your surgeon as soon as possible. ?? If you have questions regarding your Pre-Admission Screen/Testing, please call at . documented in this encounter Plan of Treatment Not on file documented as of this encounter Procedures Procedure Name Priority Date/Time Associated Diagnosis Comments POCT GLUCOSE DEVICE Routine 01/21/2021 1 1:22 AM CDT POCT GLUCOSE DEVICE Routine 01/21/2021 1 0:10 AM CDT LEFT HEART CATHETERIZATION WITH CORONARY ANGIOGRAPHY AND WITH AND WITHOUT LEFT VENTRICULOGRAM Routine 01/21/2021 9:42 AM CDT Abnormal cardiovascular stress test POCT GLUCOSE DEVICE Routine 01/21/2021 7 :21 AM CDT POCT GLUCOSE DEVICE Routine 01/21/2021 6 :59 AM CDT LIPID PANEL Routine 01/21/2021 6:34 AM CDT POCT GLUCOSE DEVICE Routine 01/21/2021 6 :23 AM CDT documented in this encounter Results * (ABNORMAL) POCT glucose (01/21/2021 11:22 AM CDT) Glucose, POC 306(H) 70 - 199 mg/dL [facility] Blood specimen (specimen) 01/21/2021 11:22 AM CDT 01/21/2021 11:22 AM CDT Hamlet Hubbard Jr., MD LAB POCT ORDERABLES - D EVICE Final Result Performing Organization Address [facility] Co de Phone Number ALESSANDRA [address] [place] [address] * (ABNORMAL) POCT glucose (01/21/2021 10:10 AM CDT) Glucose, POC 242(H) 70 - 199 mg/dL [facility] Blood specimen (specimen) 01/21/2021 10:10 AM CDT 01/21/2021 10:10 AM CDT Hamlet Hubbard Jr., MD LAB POCT ORDERABLES - D EVICE Final Result Performing Organization Address [facility] de Phone Number [facility] [address] [place] [place] [address] * LEFT HEART CATHETERIZATION WITH CORONARY ANGIOGRAPHY AND WITH AND WITHOUT LEFT VENTRICULOGRAM (01/21/2021 9:42 AM CDT) Anatomical Region Laterality Modality X-Ray Angiograph y 01/21/2021 Narrative 01/25/2021 10:30 AM CDT [employer] Job ID: [id number] [employer] Document ID: [id number] Dictated date/time: [id number] CATHETERIZATION REPORT PROCEDURE PERFORMED Left heart catheterization with selective coronary angiography and left ventriculography. INDICATIONS A 50-year-old diabetic gentleman with known coronary artery disease. ??Has been having worsened dyspnea on exertion. ??He underwent stress testing which was abnormal. ??He was therefore recommended for repeat catheterization to evaluate previously placed stents as well as for progression of disease. COMPLICATIONS None. ANESTHESIA 1% lidocaine local, intravenous sedation with Versed and fentanyl. ??Total sedation 2 mg Versed, 50 mcg fentanyl. ??Total sedation time 20 minutes. DESCRIPTION OF PROCEDURE After obtaining informed consent, the patient was brought to the catheterization lab in the postabsorptive state. ??The patient was noted to have a CONTRAST ALLERGY and was pretreated with steroids, IV Benadryl and IV Pepcid. ??Then sedation was instituted with Versed and fentanyl, and a trained observer was present throughout the case to monitor the patient under sedation. ??Sterile prep and drape of the left coronary was performed followed by infiltration with 1% lidocaine. ??Using percutaneous Seldinger technique, introducer sheath was placed in the left femoral artery. ??A 5-Belarusian #4 Kranthi left coronary catheter was advanced to left coronary ostium. ??Left arteriograms performed with normal projections. ??The catheter was removed and replaced with a 5-Belarusian #4 Kranthi right ?? coronary catheter which was advanced to right coronary ostium. ??Right coronary arteriograms were performed in multiple projections. ??This catheter was removed and exchanged for a 5-Belarusian pigtail catheter which was advanced to left ventricle. ??Left ventricular pressures measured followed by injection of contrast which was performed without complication. ??Post injection pressure was measured followed by measurement of the gradient across the aortic valve using pullback technique. ??This catheter was removed. ??The arterial sheath was used to perform femoral arteriography, followed by removal of the sheath using the Angio-Seal arteriotomy closure device. ??The patient was then taken to the holding area. CASE DATA Pre angio aorta 147/73, LV 162/28. ??Post angio aorta 136/68, LV 142/26, ejection fraction 60%. ??Aortic valvular gradient 0. DESCRIPTION OF THE ANGIOGRAMS 1. LEFT MAIN CORONARY: ??Left main is a moderate-sized vessel, free of stenosis. 2. LEFT ANTERIOR DESCENDING ARTERY: ??Left anterior descending is calcified proximally with a 30% stenosis. ??There is a second 30% stenosis in the mid LAD. ??The remainder of the vessels mildly irregular but free of stenosis. 3. CIRCUMFLEX ARTERY: ??Circumflex artery is a moderate-sized nondominant system. ??There was a large 1st obtuse marginal which then gives off a secondary branch. ??The secondary branch has a 50% stenosis in its proximal portion. ??The remainder of the circumflex system is remarkably free of disease. 4. RIGHT CORONARY ARTERY: ??The right coronary artery is seen to contain multiple previously placed stents. ??Injection of contrast reveals a smooth contour throughout the entire right coronary down to the distal right coronary. ??There is a stent that extends from the distal right coronary into the posterior descending across the ostium of the posterolateral. ?? The posterolateral is subsequently occluded due to the stent with no collateralization. ??The remainder of the right coronary is extremely smooth with no evidence of in-stent restenosis. 5. LEFT VENTRICLE: ??Left ventriculography reveals normal left ventricular chamber size, wall thickness, and wall motion, contractility is normal with an ejection fraction of 60%. CONCLUSIONS 1. Minimal change from previous catheterization from August of 2019 with the only substantial change being the occlusion of the posterolateral artery which previously had some flow through it although it was jailed by the stent. 2. Probable interval development of moderate disease in the secondary branch of the 1st obtuse marginal. 3. No evidence of in-stent restenosis, right coronary artery. 4. Normal left ventricular wall motion, systolic function. RECOMMENDATIONS The patient will be continued on aggressive medical management and also recommend that he begin an exercise program in an attempt to lose weight. Thank you for the opportunity to participate in the care of this very pleasant gentleman. JOB ID/VF JOB ID: ??[id number] Hamlet Hubbard Jr., MD CV CARDIAC CATH PROCEDU RES Final Result * POCT glucose (01/21/2021 7:21 AM CDT) [facility] Signature Glucose, POC 191 70 - 199 mg/dL [facility] Blood specimen (specimen) 01/21/2021 7:21 AM CDT 01/21/2021 7:21 AM CDT Hamlet Hubbard Jr., MD LAB POCT ORDERABLES - D EVICE Final Result [facility] [address] [place] [address] * POCT glucose (01/21/2021 6:59 AM CDT) Glucose, POC 157 70 - 199 mg/dL [facility] Blood specimen (specimen) 01/21/2021 6:59 AM CDT 01/21/2021 6:59 AM CDT us Hamlet Hubbard Jr., MD LAB POCT ORDERABLES - D EVICE Final Result [facility] [address] [facility] [place] [address] * (ABNORMAL) Lipid panel (01/21/2021 6:34 AM CDT) Cholesterol 166 30 - 199 mg/dL [facility] Comment: Interpretive Data Ages < or [...] Data was last revised on 2018. Triglycerides 260(H) <=149 mg/dL [facility] Comment: Interpretive Data Ages < or = [...] Data was last revised on 2018. HDL 33(L) >=40 mg/dL [facility] Comment: Interpretive Data Ages < or = [...] was last revised on 2018. LDL, calculated 81 <=129 mg/dL [facility] Comment: Interpretive Data Ages < or = [...] was last revised on 2018. Non-HDL Cholesterol 133 mg/dL [facility] Comment: Interpretive Data Ages < or [...] was last revised on 2018. Chol/HDL ratio 5 [facility] Blood specimen (specimen) 01/21/2021 6:34 AM CDT 01/21/2021 6:38 AM CDT Hamlet Hubbard Jr., MD LAB BLOOD ORDERABLES Fi nal Result Performing Organization Address City/[facility]/ZIP Co de Phone Number [facility] CON[facility] [address] [place] [address] * (ABNORMAL) POCT glucose (01/21/2021 6:23 AM CDT) Glucose, POC 66(L) 70 - 199 mg/dL [facility] Blood specimen (specimen) 01/21/2021 6:23 AM CDT 01/21/2021 6:23 AM CDT Hamlet Hubbard Jr., MD LAB POCT ORDERABLES - D EVICE Final Result Performing Organization Address [facility] Co de Phone Number ALESSANDRA CONDE [address] [place] [address] documented in this encounter Visit Diagnoses Diagnosis Abnormal cardiovascular stress test- Primary Other nonspecific abnormal cardiovascular system function study Abnormal cardiovascular stress test Other nonspecific abnormal cardiovascular system function study documented in this encounter Admitting Diagnoses Diagnosis Abnormal cardiovascular stress test Other nonspecific abnormal cardiovascular system function study documented in this encounter Administered Medications Inactive Administered Medications - up to 3 most recent administrations Medication Order MAR Action Action Date Dose Rate Site dextrose (concentrated solution) 50 % CONCENTRATED solution - ADS Override Pull Starting on Mon01/21/21 at 0639, For 1 dose, Created by cabinet override dextrose (concentrated solution) 50 % CONCENTRATED solution 25 g 25 g, intravenous, Administer over 5 Minutes, Once, On Mon01/21/21 at 0715, For 1 dose, Pre-Op Given 01/21/2021 6:45 AM CDT 25 g dextrose (D10W) 10% bolus 250 mL 250 mL, intravenous, at 1,000 mL/hr, Administer over 15 Minutes, Every 15 min PRN, blood glucose less than 70 mg/dL and UNABLE to swallow/take PO glucose/juice., Starting on Mon01/21/21 at 1127, After treatment for hypoglycemia, recheck BG followed by treatment every 15 minutes until the BG is greater than 100 mg/dL. Then check BG 1 hour post treatment. If BG is less than 100 mg/dL, repeat Q15 minute BG checks and treatment. Call MD for each episode of hypoglycemia., Indications: hypoglycemic disorderIndications:hypo glycemic disorder dextrose oral liquid liquid 15 g 15 g, oral, Every 15 min PRN, low blood sugar, blood glucose less than 70 mg/dL, Starting on Mon01/21/21 at 1127, If patient is alert and able to [...] for each episode of hypoglycemia., Indications: hypoglycemic disorderIndications:hypo glycemic disorder diphenhydrAMINE (BENADRYL) injection Administer over 2 Minutes, As needed, Starting on Mon01/21/21 at 0923, Intra-Procedure (CV) Given 01/21/2021 9:23 AM CDT 50 mg famotidine (PEPCID) injection Administer over 2 Minutes, As needed, Starting on Mon01/21/21 at 0923, Intra-Procedure (CV) Given 01/21/2021 9:23 AM CDT 20 mg fentaNYL (SUBLIMAZE) preservative free injection As needed, Starting on Mon01/21/21 at 0925, Intra-Procedure (CV) Given 01/21/2021 9:25 AM CDT 50 mcg glucagon injection 1 mg 1 mg, intramuscular, Administer over 1 Minutes, Every 30 min PRN, low blood sugar, blood glucose less than 70 mg/dL AND no IV access AND unable to take PO glucose/jiuce., Starting on Mon01/21/21 at 1127, After Glucagon is administered, position patient on [...] with 1 mL SWFI. Use immediately following reconstitution., Indications: HypoglycemiaIndications: Hypoglycemia heparin in 0.9% sodium chloride 1,000 units/500 mL (2 unit/mL) infusion (premix) As needed, Starting on Mon01/21/21 at 0937, Intra-Procedure (CV) Given 01/21/2021 9:37 AM CDT 1,000 mL hydrocortisone (Solu-CORTEF) preservative free injection As needed, Starting on Mon01/21/21 at 0923, Intra-Procedure (CV) Given 01/21/2021 9:23 AM CDT 100 mg insulin lispro (HumaLOG, ADMELOG) 100 unit/mL injection 1-5 Units 1-5 Units, subcutaneous, 3 times daily with meals, First dose on Mon01/21/21 at 1200, Blood Sugar Mid Dose meal time - PO patients 139 or less No insulin 140 - 175 1 unit 176 - 200 2 unit 201 - 250 3 units 251 - 299 5 units Greater than 299 Call MD for hyperglycemia management instructions Do NOT hold for NPO status., Indications: Diabetes MellitusIndications:Diab etes Mellitus Given 01/21/2021 11:28 AM CDT 7 Units Right Lower Abdomen iodixanoL (VISIPAQUE) 320 mg iodine/mL injection As needed, Starting on Gregoria 01/21/21 at 0941, Intra-Procedure (CV) Given 01/21/2021 9:40 AM CDT 110 mL lidocaine (XYLOCAINE) 10 mg/mL (1 %) injection As needed, Starting on Gregoria 01/21/21 at 0926, Intra-Procedure (CV), Indications: Administration of Local AnesthesiaIndications:Ad ministration of Local Anesthesia Given 01/21/2021 9:26 AM CDT 10 mL Left Groin midazolam (VERSED) 1 mg/mL preservative free injection Administer over 2 Minutes, As needed, Starting on Gregoria 01/21/21 at 0925, Intra-Procedure (CV) Given 01/21/2021 9:25 AM CDT 2 mg sodium chloride 0.9% infusion Continuous PRN, Starting on Gregoria 01/21/21 at 0910, Intra-Procedure (CV) New Bag 01/21/2021 9:10 AM CDT 20 mL/hr 20 mL/hr documented in this encounter Discontinued Medications Medication Sig Discontinue Reason Start Date End Da te ELIQUIS 5 mg tablet TAKE 1 TABLET(5 MG) BY MOUTH TWICE DAILY 11/20/2017 01/20/2021 cholecalciferol (VITAMIN D-3) 2,000 unit capsule Take 2,000 Units by mouth daily. 01/20/2021 cloNIDine (CATAPRES) 0.1 mg tablet Take 0.1 mg by mouth 2 (two) times a day. 01/20/2021 febuxostat (ULORIC) 40 mg tablet Take 40 mg by mouth daily. 01/20/2021 colchicine (COLCRYS) 0.6 mg tabletIndications:as needed for pain Take 0.6 mg by mouth 2 (two) times a day. 01/20/2021 furosemide (LASIX) 40 mg tablet TAKE 1 TABLET BY MOUTH TWICE DAILY 07/18/2018 01/20/2021 insulin glargine (LANTUS) 100 unit/mL injection Inject under the skin nightly. 01/20/2021 insulin lispro (HumaLOG) 100 unit/mL injection Inject under the skin 3 (three) times a day before meals. 01/20/2021 predniSONE (DELTASONE) 10 mg tabletIndications:Gout Take 4 tab per day x 5 days, then 3 tabs per day x 5 days, then 2 tabs per day x 5 days, then 1 tab per day x 5 days 03/22/2018 01/20/2021 raNITIdine (ZANTAC) 300 mg tablet Take 300 mg by mouth 2 (two) times a day. 01/20/2021 simvastatin (ZOCOR) 40 mg tablet Take 40 mg by mouth nightly. 01/20/2021 aspirin 81 mg tablet Take 81 mg by mouth daily. 01/20/2021 carvedilol (COREG) 25 mg tablet TAKE 1 TABLET BY MOUTH EVERY 12 HOURS 09/10/2018 01/20/2021 doxycycline (VIBRAMYCIN) 100 mg capsule Take 100 mg by mouth 2 (two) times a day. 01/20/2021 isosorbide mononitrate ER (IMDUR) 60 mg 24 hr tablet TAKE 1 TABLET BY MOUTH EVERY MORNING 12/21/2018 01/20/2021 terazosin (HYTRIN) 2 mg capsule TAKE 1 CAPSULE(2 MG) BY MOUTH EVERY NIGHT 12/24/2018 01/20/2021 documented as of this encounter Historical Medications * This list may reflect changes made after this encounter. cetirizine (ZyrTEC) 10 mg tabletIndications :Allergic Rhinitis Take 1 tablet (10 mg total) by mouth daily as needed for allergies omeprazole (PriLOSEC) 20 mg capsuleIndication s:GI Bleed,prevention Take 1 capsule (20 mg total) by mouth daily EZETIMIBE ORAL Take 10 mg by mouth daily calcium acetate,phosphat bind, (PHOSLO) 667 mg capsuleIndication s:hypocalcemia Take 1 capsule (667 mg total) by mouth 4 (four) times a day (with meals and nightly) With meals and snack atorvastatin (LIPITOR) 80 mg tabletIndications :hyperlipidemia Take 1 tablet (80 mg total) by mouth daily calcitRIOL (ROCALTROL) 0.25 mcg capsuleIndication s:hypophosphatemi a Take 1 capsule (0.25 mcg total) by mouth daily cholecalciferol (VITAMIN D-3) 2000 unit tabletIndications :Vitamin D Deficiency Take 25 tablets (50,000 Units total) by mouth once a week aspirin 81 mg enteric coated tabletIndications :Myocardial Reinfarction Prevention Take 1 tablet (81 mg total) by mouth daily 11/07/2013 pen needle, diabetic (BD Ultra-Fine Short Pen Needle) 31 gauge x 5/16 needle 01/30/2018 insulin aspart U-100 (NovoLOG) 100 unit/mL cartridge Inject under the skin Basal rate 1200 am to 0500 am 5.25; from 5 am to 8 pm 1.8; from 8pm to 12 am 5.5 2 UNABLE TO FIND Zalacyclovir take one tablet three times daily 2 doxycycline monohydrate (ADOXA) 50 mg tablet Take 50 mg by mouth 2 (two) times a day 2 meloxicam (MOBIC) 7.5 mg tablet Take 7.5 mg by mouth 2 (two) times a day 2 metoprolol (LOPRESSOR) 100 mg tablet Take 1 tablet (100 mg total) by mouth every 12 (twelve) hours 4 ranolazine ER (RANEXA) 500 mg 12 hr tablet Take 500 mg by mouth 2 (two) times a day 2 amLODIPine (NORVASC) 10 mg tablet Take 10 mg by mouth daily 2 colchicine (Colcrys) 0.6 mg tablet Take one tablet po every Monday, Monday and Monday. 2 furosemide (LASIX) 80 mg tablet Take 80 mg by mouth 2 (two) times a day 2 cloNIDine (CATAPRES) 0.1 mg tablet Take 0.2 mg by mouth every 8 (eight) hours 02/24/2018 2 added in this encounter Active and Recently Administered Medications Times are shown in CDT. Scheduled Medication Order 01/19/2021 01/20/2021 01/21/2021 dextrose (concentrated solution) 50 % CONCENTRATED solution 25 g (COMPLETED) 25 g, intravenous, Administer over 5 Minutes, Once, On Gregoria 01/21/21 at 0715, For 1 dose, Pre-Op 0645 (Given - Provid er: Daniela Fox RN) insulin lispro (HumaLOG, ADMELOG) 100 unit/mL injection 1-5 Units 1-5 Units, subcutaneous, 3 times daily with meals, First dose on Gregoria 01/21/21 at 1200, Blood Sugar Mid Dose meal time - PO patients 139 or less No insulin 140 - 175 1 unit 176 - 200 2 unit 201 - 250 3 units 251 - 299 5 units Greater than 299 Call MD for hyperglycemia management instructions Do NOT hold for NPO status., Indications: Diabetes Mellitus 1128 (Given - Provid er: Carey Khan RN - Comment: ok with dr. hubbard) PRN Medication Order 01/19/2021 01/20/2021 01/21/2021 dextrose (D10W) 10% bolus 250 mL(Linked Group 1) 250 mL, intravenous, at 1,000 mL/hr, Administer over 15 Minutes, Every 15 min PRN, blood glucose less than 70 mg/dL and UNABLE to swallow/take PO glucose/juice., Starting on Gregoria 01/21/21 at 1127, After treatment for hypoglycemia, recheck BG followed by treatment every 15 minutes until the BG is greater than 100 mg/dL. Then check BG 1 hour post treatment. If BG is less than 100 mg/dL, repeat Q15 minute BG checks and treatment. Call MD for each episode of hypoglycemia., Indications: hypoglycemic disorder dextrose oral liquid liquid 15 g(Linked Group 1) 15 g, oral, Every 15 min PRN, low blood sugar, blood glucose less than 70 mg/dL, Starting on Gregoria 01/21/21 at 1127, If patient is alert and able to [...] each episode of hypoglycemia., Indications: hypoglycemic disorder diphenhydrAMINE (BENADRYL) injection (CANCELED) Administer over 2 Minutes, As needed, Starting on Gregoria 01/21/21 at 0923, Intra-Procedure (CV) 0923 (Given - Provid er: Erendira Messer RN) famotidine (PEPCID) injection (CANCELED) Administer over 2 Minutes, As needed, Starting on Gregoria 01/21/21 at 0923, Intra-Procedure (CV) 0923 (Given - Provid er: Erendira Messer RN) fentaNYL (SUBLIMAZE) preservative free injection (CANCELED) As needed, Starting on Gregoria 01/21/21 at 0925, Intra-Procedure (CV) 0925 (Given - Provid er: Erendira Messer RN) glucagon injection 1 mg 1 mg, intramuscular, Administer over 1 Minutes, Every 30 min PRN, low blood sugar, blood glucose less than 70 mg/dL AND no IV access AND unable to take PO glucose/jiuce., Starting on Gregoria 01/21/21 at 1127, After Glucagon is administered, position patient on [...] with 1 mL SWFI. Use immediately following reconstitution., Indications: Hypoglycemia heparin in 0.9% sodium chloride 1,000 units/500 mL (2 unit/mL) infusion (premix) (CANCELED) As needed, Starting on Gregoria 01/21/21 at 0937, Intra-Procedure (CV) 0937 (Given - Provid er: Hamlet Hubbard Jr., MD - Comment: On procedure table for flush solution and pressure transduction) hydrocortisone (Solu-CORTEF) preservative free injection (CANCELED) As needed, Starting on Gregoria 01/21/21 at 0923, Intra-Procedure (CV) 0923 (Given - Provid er: Erendira Messer RN) iodixanoL (VISIPAQUE) 320 mg iodine/mL injection (CANCELED) As needed, Starting on Gregoria 01/21/21 at 0941, Intra-Procedure (CV) 0940 (Given - Provid er: Hamlet Hubbard Jr., MD) lidocaine (XYLOCAINE) 10 mg/mL (1 %) injection (CANCELED) As needed, Starting on Gregoria 01/21/21 at 0926, Intra-Procedure (CV), Indications: Administration of Local Anesthesia 0926 (Given - Provid er: Hamlet Hubbard Jr., MD) midazolam (VERSED) 1 mg/mL preservative free injection (CANCELED) Administer over 2 Minutes, As needed, Starting on Gregoria 01/21/21 at 0925, Intra-Procedure (CV) 0925 (Given - Provid er: Erendira Messer RN) sodium chloride 0.9% infusion (COMPLETED) Continuous PRN, Starting on Gregoria 01/21/21 at 0910, Intra-Procedure (CV) 0910 (New Bag - Prov ider: Erendira Messer RN)0940 (Stopped - Provider: Carey Khan RN) Linked Groups Order Group 1: dextrose oral liquid liquid 15 gJump to med 15 g, oral, Every 15 min PRN, low blood sugar, blood glucose less than 70 mg/dL, Starting on Gregoria 01/21/21 at 1127, If patient is alert and able to [...] to swallow/take PO glucose/juice., Starting on Gregoria 01/21/21 at 1127, After treatment for hypoglycemia, recheck BG followed by treatment every 15 minutes until the BG is greater than 100 mg/dL. Then check BG 1 hour post treatment. If BG is less than 100 mg/dL, repeat Q15 minute BG checks and treatment. Call MD for each episode of hypoglycemia., Indications: hypoglycemic disorder documented in this encounter Orders Medications Ordered That Pablo ht Not Have Been Administered Count Last Ordered Date First Ordered Date dextrose (D10W) 10% bolus 250 mL 2 01/22/20 21 dextrose oral liquid liquid 15 g 2 01/22/20 21 glucagon injection 1 mg 2 01/21/2021 Diet Count Last Ordered Date First Orde red Date ADULT DISCHARGE DIET 1 01/21/2021 Nursing Count Last Ordered Date First Orde red Date DISCHARGE ACTIVITY 2 01/21/2021 documented in this encounter Care Teams Non Food Receiving Clerk Relationship Specialty Start Date End Date Aditya Castro MD [address] [place] [address] PCP - General 10/17/19 documented as of this encounter
--- OUTSIDE RECORDS SUMMARY | 2024-08-18 13:14 | XMS_ITS | Encounter Summary ---
Author Organization [facility] Healthcare Address [address] [place] [address] Care Team Providers Care Field Irrigation Worker Name Role Phone Aditya Castro MD Primary Care Provider [phone] Encounter Details Date Type Department Care Team (Latest Contact Info) Description 01/21/2021 6:13 AM CDT - 01/21/2021 12:40 PM CDT Hospital Encounter [facility] Cardiac Catheterization Lab [address] [place] [address] [place] [address] [place] [id number] Abnormal cardiovascular stress test Discharge Disposition: Discharge to home or self [...] on file 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 Gender Identity Not on file Sexual Orientation Not on file documented as of this encounter Last Filed Vital Signs Vital Sign Reading Time Taken Comments Blood Pressure 162/73 01/21/2021 11:40 AM CDT Pulse 61 01/21/2021 11:45 AM CDT Temperature 37.1 ??C (98.7 ??F) 01/21/2021 6:23 AM CD T Respiratory Rate 16 01/21/2021 6:23 AM CDT Oxygen Saturation 93% 01/21/2021 11:45 AM CDT Inhaled Oxygen Concentration - - Weight 132.9 kg (293 lb) 01/21/2021 6:23 AM CDT Height 177.8 cm (5' 10 ) 01/21/2021 6:23 AM CDT Body Mass Index 42.04 01/21/2021 6:23 AM CDT documented in this encounter Discharge Diagnoses Diagnosis Atherosclerotic heart disease of [place] coronary artery without angina pectoris - ATHEROSCLEROTIC HEART DISEASE OF [place] CORONARY ARTERY WITHOUT ANGINA PECTORIS Type 2 diabetes mellitus without complications (CMS/HCC) ([facility]) - TYPE 2 DIABETES MELLITUS WITHOUT COMPLICATIONS Radiographic dye allergy status - RADIOGRAPHIC DYE ALLERGY STATUS Presence of coronary angioplasty implant and graft - PRESENCE OF CORONARY ANGIOPLASTY IMPLANT AND GRAFT documented in this encounter Discharge Instructions * [...] or you have any questions contact your Actuary and follow up with your Primary Care [...] remember to ask them during your visits. [phone] Dr. Hubbard documented in this encounter Medications [...] ANGIOGRAPHY AND WITH OR WITHOUT LEFT VENTRICULOGRAM [id number] Source Note - Hamlet Hubbard Jr., MD [...] that you and your doctor have chosen [facility] for your surgery. We hope that the [...] doctor. ?? Use no cologne, make-up, nail prydeinig, lotions, oils or powders on your skin. [...] (ABNORMAL) POCT glucose (01/21/2021 11:22 AM CDT) [facility] Signature Glucose, POC 306(H) 70 - 199 mg/dL [facility] Blood specimen (specimen) 01/21/2021 11:22 AM CDT 01/21/2021 11:22 AM CDT us Hamlet Hubbard Jr., MD LAB POCT ORDERABLES - D EVICE Final Result Performing Organization Address [facility] de Phone Number [facility] [address] [place] [address] * (ABNORMAL) POCT glucose (01/21/2021 10:10 AM CDT) Glucose, POC 242(H) 70 - 199 mg/dL [facility] Blood specimen (specimen) 01/21/2021 10:10 AM CDT 01/21/2021 10:10 AM CDT Hamlet Hubbard Jr., MD LAB POCT ORDERABLES - D EVICE Final Result Performing Organization Address [facility] de Phone Number [facility] [address] [place] [address] * LEFT HEART CATHETERIZATION WITH CORONARY ANGIOGRAPHY AND WITH AND WITHOUT LEFT VENTRICULOGRAM (01/21/2021 9:42 AM CDT) Anatomical Region Laterality Modality X-Ray Angiograph y 01/21/2021 Narrative 01/25/2021 10:30 AM CDT [employer] Job ID: [id number] [employer] Document ID: [id number] Dictated date/time: [id number] CATHETERIZATION REPORT PROCEDURE PERFORMED Left heart catheterization [...] placed in the left femoral artery. ??A 5-Azerbaijani #4 Kranthi left coronary catheter was advanced to left coronary ostium. ??Left arteriograms performed with normal projections. ??The catheter was removed and replaced with a 5-Azerbaijani #4 Kranthi right ?? coronary catheter which was advanced to right coronary ostium. ??Right coronary arteriograms were performed in multiple projections. ??This catheter was removed and exchanged for a 5-Azerbaijani pigtail catheter which was advanced to left [...] very pleasant gentleman. JOB ID/VF JOB ID: ??[id number] Hamlet Hubbard Jr., MD CV CARDIAC CATH PROCEDU RES Final Result * POCT glucose (01/21/2021 7:21 AM CDT) Glucose, POC 191 70 - 199 mg/dL [facility] Blood specimen (specimen) 01/21/2021 7:21 AM CDT 01/21/2021 7:21 AM CDT Hamlet Hubbard Jr., MD LAB POCT ORDERABLES - D EVICE Final Result [facility] [address] Department [place] [address] * POCT glucose (01/21/2021 6:59 AM CDT) Glucose, POC 157 70 - 199 mg/dL [facility] Blood specimen (specimen) 01/21/2021 6:59 AM CDT 01/21/2021 6:59 AM CDT Hamlet Hubbard Jr., MD LAB POCT ORDERABLES - D EVICE Final Result Performing Organization Address City/State/[facility] Phone Number [facility] [address] [facility] Department [place] [address] * (ABNORMAL) Lipid panel (01/21/2021 6:34 AM CDT) Cholesterol 166 30 - 199 mg/dL [facility] Comment: Interpretive Data Ages < or [...] on 2018. HDL 33(L) >=40 mg/dL [facility] Comment: Interpretive Data Ages < or = [...] 2018. LDL, calculated 81 <=129 mg/dL [facility] Comment: Interpretive Data Ages < or = [...] revised on 2018. Non-HDL Cholesterol 133 mg/dL [facility] Comment: Interpretive Data Ages < or = [...] last revised on 2018. Chol/HDL ratio 5 [facility] Blood specimen (specimen) 01/21/2021 6:34 AM CDT 01/21/2021 6:38 AM CDT Hamlet Hubbard Jr., MD LAB BLOOD ORDERABLES Fi nal Result Performing Organization Address City/[facility] de Phone Number [facility] [address] [place] [address] * (ABNORMAL) POCT glucose (01/21/2021 6:23 AM CDT) Glucose, POC 66(L) 70 - 199 mg/dL [facility] Blood specimen (specimen) 01/21/2021 6:23 AM CDT 01/21/2021 6:23 AM CDT Hamlet Hubbard Jr., MD LAB POCT ORDERABLES - D EVICE Final Result Performing Organization Address [facility] de Phone Number [facility] [address] [place] [address] documented in this encounter Visit Diagnoses Diagnosis [...] solution - ADS Override Pull Starting on Gregoria 01/21/21 at 0639, For 1 dose, Created by cabinet override dextrose (concentrated solution) 50 % CONCENTRATED solution 25 g 25 g, intravenous, Administer over 5 Minutes, Once, On Gregoria 01/21/21 at 0715, For 1 dose, Pre-Op Given [...] for each episode of hypoglycemia., Indications: hypoglycemic disorderIndications:hypog lycemic disorder dextrose oral liquid liquid 15 g [...] for each episode of hypoglycemia., Indications: hypoglycemic disorderIndications:hypog lycemic disorder glucagon injection 1 mg 1 mg, [...] mL SWFI. Use immediately following reconstitution., Indications: HypoglycemiaIndications:H ypoglycemia insulin lispro (HumaLOG, ADMELOG) 100 unit/mL injection [...] NOT hold for NPO status., Indications: Diabetes MellitusIndications:Diabe canelo Mellitus Given 01/21/2021 11:28 AM CDT 7 Units Right Lower Abdomen documented in this encounter Discontinued Medications Medication [...] (D10W) 10% bolus 250 mL 2 01/22/20 dextrose oral liquid liquid 15 g 2 01/22/20 diphenhydrAMINE (BENADRYL) injection 1 10/2020 famotidine (PEPCID) injection 1 01/21/2021 fentaNYL (SUBLIMAZE) preserv ative free injection 1 01/21/2021 glucagon injection 1 mg 2 01/21/2021 heparin in 0.9% sodium chlor deana 1,000 units/500 mL (2 unit/mL) infusion (premix) 1 01/21/2021 hydrocortisone (Solu-CORTEF) preservative free injection 1 01/21/2021 iodixanoL (VISIPAQUE) 320 mg iodine/mL injection 1 01/21/2021 lidocaine (XYLOCAINE) 10 mg/ mL (1 %) injection 1 01/21/2021 midazolam (VERSED) 1 mg/mL p reservative free injection 1 01/21/2021 sodium chloride 0.9% infusion 1 01/21/2021 Diet Count Last Ordered Date First Orde red Date ADULT DISCHARGE DIET 1 01/21/2021 Nursing Count Last Ordered Date First Orde red Date DISCHARGE ACTIVITY 2 01/21/2021 documented in this encounter Care Teams Field Irrigation Worker Relationship Specialty Start Date End Date Aditya Castro MD [address] [facility] [place] [address] PCP - General 10/17/19 documented as of this encounter
--- OUTSIDE RECORDS SUMMARY | 2024-08-18 13:14 | XMS_ITS | Encounter Summary ---
Author Organization [facility] Address [address] [place] [address] Phone Care Team Providers Care Asparagus Buncher Name Role Phone Jhonatan Bellamy MD Primary Care Provider [phone] Encounter Details Date Type Department Care Team (Late st Contact Info) Description 03/22/2018 Telephone [facility] Rheumatology [address] [facility] Advanced Medicine 5th [place] [address] [place] [address] Alexis Gonzalez RMA Social History Tobacco Use Types Packs/Day Years Used Date Smoking Tobacco: Never Smokeless Tobacco: Former Alcohol Use Standard Drinks/Week Comments No 0 (1 standard drink = 0.6 oz pur e alcohol) Sex and Gender Information Value Date Recorded Sex Assigned at Not on file 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 You want pt to have that because a script is not in system * Telephone Encounter - Karina Johnson MD - 03/22/2018 11:07 AM CDT That's fine - please approve the refill * Telephone Encounter - Alexis Gonzalez MA - 03/22/2018 10:53 AM CDT Pharmacy called requesting prednisone refill for this pt. documented in this encounter Plan of Treatment Not on file documented as of this encounter Visit Diagnoses Not on filedocumented in this encounter Care Teams Asparagus Buncher Relationship Specialty Start Date End Date Jhonatan Bellamy MD [address] [place] [address] PCP - General 03/25/15 04/16/18 documented as of this encounter
--- OUTSIDE RECORDS SUMMARY | 2024-08-18 13:15 | XMS_ITS | Encounter Summary ---
Author Organization [facility] Healthcare Address [address] [place] [address] Care Team Providers Care Dining Car Waiter/Waitress Name Role Phone Jhonatan Bellamy MD Primary Care Provider [phone]- [phone] Encounter Details Date Type Department Care Team (Late st Contact Info) Description 04/28/2017 4:41 PM CDT - 04/28/2017 11:59 PM CDT Hospital Encounter [facility] OP INTERIM [phone] Karina Johnson MD [address] [place] [address] Discharge Disposition: Discharge to home or self care Social History Tobacco Use Types Packs/Day Years Used Date Smoking Tobacco: Never Assessed Sex and Gender Information Value Date Recorded Sex Assigned at Not on file Legal Sex Male 3:42 AM [employer] Gender Identity Not on file Sexual Orientation Not on file documented as of this encounter Medications at Time of Discharge aspirin 81 mg enteric coated tabletIndications:M yocardial Reinfarction Prevention Take 1 tablet (81 mg total) by mouth daily 11/07/2013 documented as of this encounter Discharge Disposition Disposition Code Departure Means Destination Discharge to home or self care documented in this encounter Plan of Treatment Not on file documented as of this encounter Procedures Procedure Name Priority Date/Time Associated Diagnosis Comments ERYTHROCYTE SEDIMENTATION RATE Routine Gen Lab 04/28/2017 4:41 PM CDT DISCHARGE LABORATORY CUMULATIVE REPORT 04/28/2017 12:00 AM CDT documented in this encounter Results * (ABNORMAL) Erythrocyte sedimentation rate (04/28/2017 4:41 PM CDT) Erythrocyte sedimentation rate 81(H) 0 - 12 mm/H [facility] Blood specimen (specimen) 04/28/2017 4:41 PM CDT 04/28/2017 7:18 PM CDT us Karina Johnson MD LAB BLOOD ORDERABLES Final Re sult [facility] [place] [address] * DISCHARGE LABORATORY CUMULATIVE REPORT (04/28/2017 12:00 AM CDT) Narrative 04/28/2017 12:00 AM CDT Ordered by an unspecified provider. Historical Provider LAB BLOOD ORDERABLES Ann Marie l Result documented in this encounter Visit Diagnoses Not on filedocumented in this encounter Care Teams Dining Car Waiter/Waitress Relationship Specialty Start Date End Date Jhonatan Bellamy MD [address] [place] [address] PCP - General 03/25/15 04/16/18 documented as of this encounter
--- OUTSIDE RECORDS SUMMARY | 2024-08-18 13:15 | XMS_ITS | Encounter Summary ---
Author Organization [facility] Address [address] [address] Care Team Providers Care Co[employer] Rol[employer]ing Name Role Phone Jhonatan Bellamy MD Primary Care Provider [phone] Pedro Lakhani MD Primary Care Provider Eugenia Hughes MD Primary Care Provider [phone] Aditya Castro MD Primary Care Provider [phone] Encounter Details Date Type Department Care Team (Late st Contact Info) Description 06/12/2017 Telephone [facility] [address] [id number] Abelardo Petit MD [address] [address] Social History Tobacco Use Types Packs/Day Years Used Date Smoking Tobacco: Never Smokeless Tobacco: Former Alcohol Use Standard Drinks/Week Comments No 0 (1 standard drink = 0.6 oz pur e alcohol) Sex and Gender Information Value Date Recorded Sex Assigned at Not on file Legal Sex Male 3:42 AM [employer] Gender Identity Not on file Sexual Orientation Not on file documented as of this encounter Plan of Treatment Not on file documented as of this encounter Visit Diagnoses Not on filedocumented in this encounter Care Teams [employer] Relationship Specialty Start Date End Date Jhonatan Bellamy MD [address] [place] [address] PCP - General 03/25/15 04/16/18 Pedro Lakhani MD [address] [place] [address] PCP - General Family Practice 04/17/18 04/18/18 Eugenia Hughes MD [address] [place] [address] PCP - General Family Practice 04/19/18 10/16/19 Aditya Castro MD [address] [facility] [place] [address] PCP - General 10/17/19 documented as of this encounter
--- OUTSIDE RECORDS SUMMARY | 2024-08-18 13:15 | XMS_ITS | Encounter Summary ---
Author Organization [facility] Address [address] [place] [address] Care Team Providers Care Organisation And Methods Analyst Name Role Phone Jhonatan Bellamy MD Primary Care Provider [phone]- [phone] Encounter Details Date Type Department Care Team (Latest Contact Info) Description 03/21/2017 6:43 AM CDT - 03/24/2017 7:37 PM CDT Hospital Encounter [facility] ADMIT [address] [place] [address] Eloise Coulter MD [address] [place], [place] [id number] Discharge Disposition: Discharge to home or self care Social History Tobacco Use Types Packs/Day Years Used Date Smoking Tobacco: Never Assessed Sex and Gender Information Value Date Recorded Sex Assigned at Not on file Legal Sex 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 [employer] Gender Identity Not on file Sexual Orientation Not on file documented as of this encounter Last Filed Vital Signs Vital Sign Reading Time Taken Comments Blood Pressure 150/72 03/24/2017 1:13 PM CDT Pulse 60 03/24/2017 1:13 PM CDT Temperature - - Respiratory Rate - - Oxygen Saturation 97% 03/24/2017 1:13 PM CDT Inhaled Oxygen Concentration - - Weight 119.1 kg (262 lb 7.7 oz) 03/21/2017 9:24 PM CDT Height 177.8 cm (5' 10 ) 03/21/2017 9:24 PM CDT Body Mass Index 37.66 03/21/2017 9:24 PM CDT documented in this encounter Medications at Time [...] Procedure Name Priority Date/Time Associated Diagnosis Comments GLUCOSE POC Routine Gen Lab 03/24/2017 1:42 PM CDT GLUCOSE POC Routine Gen Lab 03/24/2017 1:07 PM CDT GLUCOSE POC Routine Gen Lab 03/24/2017 12:48 PM CDT GLUCOSE POC Routine Gen Lab 03/24/2017 12:22 PM CDT GLUCOSE POC Routine Gen Lab 03/24/2017 7:57 AM CDT GLUCOSE POC Routine Gen Lab 03/24/2017 3:12 AM CDT GLUCOSE POC Routine Gen Lab 03/24/2017 1:35 AM CDT DISCHARGE LABORATORY CUMULATIVE REPORT 03/24/2017 12:00 AM CDT GLUCOSE POC Routine Gen Lab 03/23/2017 11:23 PM CDT PERCUTANEOUS NEEDLE BIOPSY MUSCLE Routine 03/23/2017 9:42 PM CDT US GUIDED NEEDLE PLACEMENT Routine 03/23/2017 9:42 PM CDT POTASSIUM, WHOLE BLOOD After X-Ray 7 9:30 PM CDT BASIC METABOLIC PANEL After X-Ray 03/23/2017 9:30 PM CDT GLUCOSE POC Routine Gen Lab 03/23/2017 8:31 PM CDT HEPATITIS C ANTIBODY Routine Gen Lab 03/23/2017 6:05 PM CDT HEPATITIS B CORE ANTIBODY, TOTAL Routine Gen Lab 03/23/2017 6:05 PM CDT HEPATITIS B SURFACE ANTIBODY (IMMUNE STATUS) Routine Gen Lab 03/23/2017 6:05 PM CDT HEPATITIS B SURFACE ANTIGEN Routine Gen Lab 03/23/2017 6:05 PM CDT GLUCOSE POC Routine Gen Lab 03/23/2017 5:46 PM CDT SURGICAL PATHOLOGY Routine 03/23/2017 4: 42 PM CDT AEROBIC AND ANAEROBIC CULTURE AND GRAM STAIN Routine Gen Lab 03/23/2017 4:30 PM CDT GLUCOSE POC Routine Gen Lab 03/23/2017 3:12 PM CDT BASIC METABOLIC PANEL After X-Ray 03/23/2017 12:57 PM CDT GLUCOSE POC Routine Gen Lab 03/23/2017 11:37 AM CDT GLUCOSE POC Routine Gen Lab 03/23/2017 10:42 AM CDT GLUCOSE POC Routine Gen Lab 03/23/2017 9:12 AM CDT GLUCOSE POC Routine Gen Lab 03/23/2017 8:07 AM CDT GLUCOSE POC Routine Gen Lab 03/23/2017 8:04 AM CDT XR FOOT 2 VW Routine 03/22/2017 10:52 PM CDT XR FOOT 2 VW Routine 03/22/2017 10:52 PM CDT CYCLIC CITRUL PEPTIDE ANTIBODY, IGG After X-Ray 03/22/2017 9:06 PM CDT APTT After X-Ray 03/22/2017 9:06 PM CDT PROTIME-INR After X-Ray 03/22/2017 9:06 PM CDT ANTITHROMBIN After X-Ray 03/22/2017 9:06 PM CDT CBC WITHOUT DIFFERENTIAL After X-Ray 017 9:06 PM CDT BASIC METABOLIC PANEL After X-Ray 03/22/2017 9:06 PM CDT GLUCOSE POC Routine Gen Lab 03/22/2017 8:56 PM CDT DEXA AXIAL SKELETON BONE DENSITY 1 OR MORE SITES Routine 03/22/2017 7:17 PM CDT GLUCOSE POC Routine Gen Lab 03/22/2017 5:59 PM CDT XR HAND 3+ VW Routine 03/22/2017 4:37 PM CDT XR HAND 3+ VW Routine 03/22/2017 4:37 PM CDT VITAMIN D 25 HYDROXY Routine Gen Lab 03/22/2017 2:46 PM CDT GLUCOSE POC Routine Gen Lab 03/22/2017 2:35 PM CDT GLUCOSE POC Routine Gen Lab 03/22/2017 11:47 AM CDT GLUCOSE POC Routine Gen Lab 03/22/2017 8:38 AM CDT DIFFERENTIAL AUTO After X-Ray 03/21/2017 10:32 PM CDT THYROID FUNCTION CASCADE After X-Ray 017 10:32 PM CDT IRON PROFILE W/ IBC After X-Ray 03/21/2017 10:32 PM CDT CBC WITH AUTO DIFFERENTIAL After X-Ray 03/21/2017 10:32 PM CDT TROPONIN I After X-Ray 03/21/2017 10:32 PM CDT HEMOGLOBIN A1C After X-Ray 03/21/2017 10:32 PM CDT FERRITIN After X-Ray 03/21/2017 10:32 PM CDT LIPID PANEL After X-Ray 03/21/2017 10:32 PM CDT COMPREHENSIVE METABOLIC PANEL After X-Ray 03/21/2017 10:32 PM CDT GLUCOSE POC Routine Gen Lab 03/21/2017 8:30 PM CDT GLUCOSE POC Routine Gen Lab 03/21/2017 5:52 PM CDT FLUORO GUIDED NEEDLE PLACEMENT Routine 03/21/2017 3:36 PM CDT FLUORO GUIDED NEEDLE PLACEMENT Routine 03/21/2017 3:36 PM CDT XR SHOULDER 2+ VW Routine 03/21/2017 12:58 PM CDT XR CHEST PA LATERAL 2 VIEWS Routine 03/21/2017 12:58 PM CDT N. GONORRHOEAE/C. TRACHOMATIS AMPLIFICATION TEST RTNm 03/21/2017 11:53 AM CDT B CHECK SAMPLE STAT 03/21/2017 8:24 AM CDT LACTATE POC Routine Gen Lab 03/21/2017 8:24 AM CDT BLOOD CULTURE RTNm 03/21/2017 8:11 AM CDT BLOOD CULTURE RTNm 03/21/2017 8:11 AM CDT APTT STAT 03/21/2017 8:11 AM CDT ERYTHROCYTE SEDIMENTATION RATE STAT 03/21/2017 8:11 AM CDT PROTIME-INR STAT 03/21/2017 8:11 AM CDT TYPE AND SCREEN STAT 03/21/2017 8:11 AM CDT CRP (ACUTE PHASE) STAT 03/21/2017 8:1 1 AM CDT URIC ACID STAT 03/21/2017 8:11 AM CDT HEPATIC FUNCTION PANEL STAT 7 8:11 AM CDT DIFFERENTIAL AUTO STAT 03/21/2017 7:1 5 AM CDT URINALYSIS AND REFLEX TO MICROSCOPIC STAT 03/21/2017 7:15 AM CDT CBC WITH AUTO DIFFERENTIAL STAT 03/21/2017 7:15 AM CDT TROPONIN I STAT 03/21/2017 7:15 AM CDT URINALYSIS, MICROSCOPIC ONLY STAT 03/21/2017 7:15 AM CDT B-TYPE NATRIURETIC PEPTIDE STAT 03/21/2017 7:15 AM CDT BASIC METABOLIC PANEL STAT 03/21/2017 7:15 AM CDT GLUCOSE POC Routine Gen Lab 03/21/2017 6:50 AM CDT ELECTROCARDIOGRAPHY (ECG) 03/21/2017 TRANSTHORACIC ECHO (TTE) COMPLETE W DOPPLER/CF WO CONTRAST 03/21/2017 documented in this encounter Results * Glucose POC (03/24/2017 1:42 PM CDT) Pathologist [facility] Glucose, POC 121 70 - 199 mg/dL [facility] Blood specimen (specimen) 03/24/2017 1:42 PM CDT 03/24/2017 1:42 PM CDT Eloise Coulter MD POINT OF CARE TEST ORDERABLES Final Result Performing Organization Address [facility] de Phone Number [facility] [place] [address] * Glucose POC (03/24/2017 1:07 PM CDT) Glucose, POC 95 70 - 199 mg/dL [facility] Blood specimen (specimen) 03/24/2017 1:07 PM CDT 03/24/2017 1:07 PM CDT Eloise Coulter MD POINT OF CARE TEST ORDERABLES Final Result Performing Organization Address [facility] de Phone Number [facility] Department [place] [employer] [place] [address] * Glucose POC (03/24/2017 12:48 PM CDT) Glucose, POC 81 70 - 199 mg/dL [facility] Blood specimen (specimen) 03/24/2017 12:48 PM CDT 03/24/2017 12:48 PM CDT Eloise Coulter MD POINT OF CARE TEST ORDERABLES Final Result Performing Organization Address [facility] [place] [address] * (ABNORMAL) Glucose POC (03/24/2017 12:22 PM CDT) Glucose, POC 54(L) 70 - 199 mg/dL [facility] Blood specimen (specimen) 03/24/2017 12:22 PM CDT 03/24/2017 12:22 PM CDT us Eloise Coulter MD POINT OF CARE TEST ORDERABLES Final Result Performing Organization Address City/[facility] Co de Phone Number [facility] [place] [address] * (ABNORMAL) Glucose POC (03/24/2017 7:57 AM CDT) Glucose, POC 231(H) 70 - 199 mg/dL [facility] Blood specimen (specimen) 03/24/2017 7:57 AM CDT 03/24/2017 7:57 AM CDT us Eloise Coulter MD POINT OF CARE TEST ORDERABLES Final Result Performing Organization Address [facility] de Phone Number [facility] [place] [address] * (ABNORMAL) Glucose POC (03/24/2017 3:12 AM CDT) Glucose, POC 262(H) 70 - 199 mg/dL [facility] Blood specimen (specimen) 03/24/2017 3:12 AM CDT 03/24/2017 3:12 AM CDT us Eloise Coulter MD POINT OF CARE TEST ORDERABLES Final Result Performing Organization Address [facility] Co de Phone Number [facility] Department [place] [address] * (ABNORMAL) Glucose POC (03/24/2017 1:35 AM CDT) Glucose, POC 291(H) 70 - 199 mg/dL [facility] Blood specimen (specimen) 03/24/2017 1:35 AM CDT 03/24/2017 1:35 AM CDT us Eloise Coulter MD POINT OF CARE TEST ORDERABLES Final Result Performing Organization Address City/[facility]/ZIP Co de Phone Number [facility] [place] [address] * DISCHARGE LABORATORY CUMULATIVE REPORT (03/24/2017 12:00 AM CDT) Narrative 03/24/2017 12:00 AM CDT Ordered by an unspecified provider. us Historical Provider LAB BLOOD ORDERABLES Ann Marie l Result * (ABNORMAL) Glucose POC (03/23/2017 11:23 PM CDT) Glucose, POC 324(H) 70 - 199 mg/dL [facility] Blood specimen (specimen) 03/23/2017 11:23 PM CDT 03/23/2017 11:23 PM CDT Eloise Coulter MD POINT OF CARE TEST ORDERABLES Final Result Performing Organization Address City/State/[facility] Co de Phone Number [facility] [place] [address] * US Guided Needle Placement (03/23/2017 9:42 PM CDT) Anatomical Region Laterality Modality Entire body N/A Ultrasound 03/23/2017 9:42 PM CDT Narrative 03/23/2017 9:42 PM CDT ALMA KUMAR M.D. FINAL REPORT ACC# ??Date Time ??Exam [id number] Mar 23, 2017 16:42:00 [id number] Muscle BX Perc soft tissue [id number] Mar 23, 2017 16:42:00 19634Y ([facility]) US Needle Guide EXAMINATION: ?Left third finger proximal interphalangeal joint synovial soft tissue biopsy under ultrasound guidance HISTORY: 46-year-old man with periarticular erosions and soft tissue swelling in the hands and feet. ATTENDING PRESENCE: Dr. Kumar, the attending radiologist, was present from the beginning to the end of the procedure. SEDATION: The patient did not require conscious sedation for the procedure. ?? TECHNIQUE: ??The risks, benefits and alternatives were discussed and informed consent was obtained. ??Prior to beginning the procedure, [place] Protocol was performed to confirm the patient? ? s identity and the planned procedure. ? Sterile barriers used during the procedure included cap, mask, hand hygiene, sterile gloves, and sterile drape. ??Chloraprep was used for cutaneous antisepsis. The patient was placed supine on the hospital bed with the left arm extended onto the fluoroscopy table. ??The biopsy site was localized with ultrasound guidance. ??3 mL of ??a 1:1 mixture of 0.25% bupivacaine and 1% lidocaine was injected for superficial and deep anesthesia. ?? An 18-gauge coaxial achieve needle was inserted into the synovial soft tissue of the left third proximal interphalangeal joint under ultrasound guidance. ?? Appropriate needle position was confirmed with ultrasound. ??4 core specimens of 5 to 15 mm were obtained. ??One of the specimens was sent for microbiology. One of the specimens was placed in saline and the remaining 2 specimens were placed in formalin for surgical pathology. The needle was removed and the skin was cleansed with hydrogen peroxide. ??A bandage was placed at the needle entry site. ?? ESTIMATED BLOOD LOSS: Minimal CONDITION: Stable condition. There were no complications of the procedure. DISCHARGED TO: Patient care division FINDINGS: There is synovial hypertrophy, synovitis and periarticular erosions of the proximal interphalangeal joint of the left third finger. Ultrasound images show the needle in the synovial hypertrophy. IMPRESSION: ?? 1. Left third finger proximal interphalangeal joint synovial soft tissue biopsy under ultrasound guidance. ??The soft tissue core specimens were sent to surgical pathology and microbiology. Requested By: ALEX LEMUS M.D. Dictated By: ?? ALMA KUMAR M.D. ??on Mar ??2016 ??5:28P This document has been electronically signed by: ALMA KUMAR M.D. on Mar ??2016 ??5:28P [id number] Procedure Note Miscellaneous, Not In File - 03/23/2017 ALMA KUMAR M.D. FINAL REPORT ACC# Date Time Exam [id number] Mar 23, 2017 16:42:00 [id number] Muscle BX Perc soft tissue [id number] Mar 23, 2017 16:42:00 [id number] [place] Needle Guide EXAMINATION: Left third finger proximal interphalangeal joint synovial soft tissue biopsy under ultrasound guidance HISTORY: 46-year-old man with periarticular erosions and soft tissue swelling in the hands and feet. ATTENDING PRESENCE: Dr. Kumar, the attending radiologist, was present from the beginning to the end of the procedure. SEDATION: The patient did not require conscious sedation for the procedure. TECHNIQUE: The risks, benefits and alternatives were discussed and informed consent was obtained. Prior to beginning the procedure, [place] Protocol was performed to confirm the patient? ? s identity and the planned procedure. Sterile barriers used during the procedure included cap, mask, hand hygiene, sterile gloves, and sterile drape. Chloraprep was used for cutaneous antisepsis. The patient was placed supine on the hospital bed with the left arm extended onto the fluoroscopy table. The biopsy site was localized with ultrasound guidance. 3 mL of a 1:1 mixture of 0.25% bupivacaine and 1% lidocaine was injected for superficial and deep anesthesia. An 18-gauge coaxial achieve needle was inserted into the synovial soft tissue of the left third proximal interphalangeal joint under ultrasound guidance. Appropriate needle position was confirmed with ultrasound. 4 core specimens of 5 to 15 mm were obtained. One of the specimens was sent for microbiology. One of the specimens was placed in saline and the remaining 2 specimens were placed in formalin for surgical pathology. The needle was removed and the skin was cleansed with hydrogen peroxide. A bandage was placed at the needle entry site. ESTIMATED BLOOD LOSS: Minimal CONDITION: Stable condition. There were no complications of the procedure. DISCHARGED TO: Patient care division FINDINGS: There is synovial hypertrophy, synovitis and periarticular erosions of the proximal interphalangeal joint of the left third finger. Ultrasound images show the needle in the synovial hypertrophy. IMPRESSION: 1. Left third finger proximal interphalangeal joint synovial soft tissue biopsy under ultrasound guidance. The soft tissue core specimens were sent to surgical pathology and microbiology. Requested By: ALEX LEMUS M.D. Dictated By: ALMA KUMAR M.D. on Mar 23 2017 5:28P This document has been electronically signed by: ALMA KUMAR M.D. on Mar 23 2017 5:28P [id number] us Not In File Miscellaneous IMG US PROCEDURES Ann Marie l Result * Needle Biopsy Soft Tissue Mass (03/23/2017 9:42 PM CDT) Anatomical Region Laterality Modality Body N/A X-Ray Angiograph y 03/23/2017 9:42 PM CDT Narrative 03/23/2017 9:42 PM CDT ALMA KUMAR M.D. FINAL REPORT ACC# ??Date Time ??Exam [id number] Mar 23, 2017 16:42:00 [id number] Muscle BX Perc soft tissue [id number] Mar 23, 2017 16:42:00 60230Q ([facility]) US Needle Guide EXAMINATION: ?Left third finger proximal interphalangeal joint synovial soft tissue biopsy under ultrasound guidance HISTORY: 46-year-old man with periarticular erosions and soft tissue swelling in the hands and feet. ATTENDING PRESENCE: Dr. Kumar, the attending radiologist, was present from the beginning to the end of the procedure. SEDATION: The patient did not require conscious sedation for the procedure. ?? TECHNIQUE: ??The risks, benefits and alternatives were discussed and informed consent was obtained. ??Prior to beginning the procedure, [place] Protocol was performed to confirm the patient? ? s identity and the planned procedure. ? Sterile barriers used during the procedure included cap, mask, hand hygiene, sterile gloves, and sterile drape. ??Chloraprep was used for cutaneous antisepsis. The patient was placed supine on the hospital bed with the left arm extended onto the fluoroscopy table. ??The biopsy site was localized with ultrasound guidance. ??3 mL of ??a 1:1 mixture of 0.25% bupivacaine and 1% lidocaine was injected for superficial and deep anesthesia. ?? An 18-gauge coaxial achieve needle was inserted into the synovial soft tissue of the left third proximal interphalangeal joint under ultrasound guidance. ?? Appropriate needle position was confirmed with ultrasound. ??4 core specimens of 5 to 15 mm were obtained. ??One of the specimens was sent for microbiology. One of the specimens was placed in saline and the remaining 2 specimens were placed in formalin for surgical pathology. The needle was removed and the skin was cleansed with hydrogen peroxide. ??A bandage was placed at the needle entry site. ?? ESTIMATED BLOOD LOSS: Minimal CONDITION: Stable condition. There were no complications of the procedure. DISCHARGED TO: Patient care division FINDINGS: There is synovial hypertrophy, synovitis and periarticular erosions of the proximal interphalangeal joint of the left third finger. Ultrasound images show the needle in the synovial hypertrophy. IMPRESSION: ?? 1. Left third finger proximal interphalangeal joint synovial soft tissue biopsy under ultrasound guidance. ??The soft tissue core specimens were sent to surgical pathology and microbiology. Requested By: ALEX LEMUS M.D. Dictated By: ?? ALMA KUMAR M.D. ??on Mar ??2016 ??5:28P This document has been electronically signed by: ALMA KUMAR M.D. on Mar ??2016 ??5:28P [id number] Procedure Note Miscellaneous, Not In File / Provider, MD Zev - 03/23/2017 ALMA KUMAR M.D. FINAL REPORT ACC# Date Time Exam [id number] Mar 23, 2017 16:42:00 [id number] Muscle BX Perc soft tissue [id number] Mar 23, 2017 16:42:00 [id number] ([facility]) US Needle Guide EXAMINATION: Left third finger proximal interphalangeal joint synovial soft tissue biopsy under ultrasound guidance HISTORY: 46-year-old man with periarticular erosions and soft tissue swelling in the hands and feet. ATTENDING PRESENCE: Dr. Kumar, the attending radiologist, was present from the beginning to the end of the procedure. SEDATION: The patient did not require conscious sedation for the procedure. TECHNIQUE: The risks, benefits and alternatives were discussed and informed consent was obtained. Prior to beginning the procedure, [place] Protocol was performed to confirm the patient? ? s identity and the planned procedure. Sterile barriers used during the procedure included cap, mask, hand hygiene, sterile gloves, and sterile drape. Chloraprep was used for cutaneous antisepsis. The patient was placed supine on the hospital bed with the left arm extended onto the fluoroscopy table. The biopsy site was localized with ultrasound guidance. 3 mL of a 1:1 mixture of 0.25% bupivacaine and 1% lidocaine was injected for superficial and deep anesthesia. An 18-gauge coaxial achieve needle was inserted into the synovial soft tissue of the left third proximal interphalangeal joint under ultrasound guidance. Appropriate needle position was confirmed with ultrasound. 4 core specimens of 5 to 15 mm were obtained. One of the specimens was sent for microbiology. One of the specimens was placed in saline and the remaining 2 specimens were placed in formalin for surgical pathology. The needle was removed and the skin was cleansed with hydrogen peroxide. A bandage was placed at the needle entry site. ESTIMATED BLOOD LOSS: Minimal CONDITION: Stable condition. There were no complications of the procedure. DISCHARGED TO: Patient care division FINDINGS: There is synovial hypertrophy, synovitis and periarticular erosions of the proximal interphalangeal joint of the left third finger. Ultrasound images show the needle in the synovial hypertrophy. IMPRESSION: 1. Left third finger proximal interphalangeal joint synovial soft tissue biopsy under ultrasound guidance. The soft tissue core specimens were sent to surgical pathology and microbiology. Requested By: ALEX LEMUS M.D. Dictated By: ALMA KUMAR M.D. on Mar 23 2017 5:28P This document has been electronically signed by: ALMA KUMAR M.D. on Mar 23 2017 5:28P [id number] us Not In File Miscellaneous IMG IR PROCEDURES Ann Marie l Result * (ABNORMAL) Basic metabolic panel (03/23/2017 9:30 PM CDT) Sodium 133(L) 135 - 145 mmol/L [facility] Potassium, pl 5.4(H) 3.3 - 4.9 mmol/L [facility] Chloride 100 97 - 110 mmol/L [facility] CO2 23 22 - 32 mmol/L [facility] BUN 48(H) 8 - 25 mg/dL [facility] Glucose 356(H) 70 - 199 mg/dL [facility] Creatinine 1.96(H) 0.80 - 1.30 mg/dL [facility] Calcium 9.0 8.5 - 10.3 mg/dL [facility] Anion gap 10 2 - 15 mmol/L [facility] Blood specimen (specimen) 03/23/2017 9:30 PM CDT 03/23/2017 10:14 PM CDT Darnell Tesfaye LAB BLOOD ORDERABLES Final Result Performing Organization Address City/State/[facility] Co de Phone Number [facility] [place] [address] * (ABNORMAL) Potassium, Whole Blood (03/23/2017 9:30 PM CDT) [facility] Potassium, bld 5.5(H) 3.3 - 4.9 mmol/L [facility] Blood specimen (specimen) 03/23/2017 9:30 PM CDT 03/23/2017 10:29 PM CDT Darnell Tesfaye LAB BLOOD ORDERABLES Final Result Performing Organization Address [facility] [place] [address] * (ABNORMAL) Glucose POC (03/23/2017 8:31 PM CDT) [facility] Glucose, POC 350(H) 70 - 199 mg/dL [facility] Blood specimen (specimen) 03/23/2017 8:31 PM CDT 03/23/2017 8:31 PM CDT Eloise Coulter MD POINT OF CARE TEST ORDERABLES Final Result Performing Organization Address [facility] de Phone Number [facility] [place] [address] * Hepatitis B surface antibody (03/23/2017 6:05 PM CDT) [facility] HBsAb (immune status) Reactive [facility] Comment: Interpretive Data A Negative Result indicates HBsAb of less than 10mIU/mL; a Positive Result indicates HBsAb of greater than or equal to 10mIU/mL. If qualitative result is Positive, HBsAb Quantitation will be reported. Assay performance characteristics have not been established as an aid in determining susceptibility to HBV infection prior to or following vaccination in infants, or children. For monitoring serum HBsAb levels during hepatitis B immunoglobulin (HBIG) therapy in transplant recipients, please refer to institutional HBIG protocol for desirable HBsAb levels. Current interpretive data was last revised on 2016. HBsAb (immune status) index 183.5 mIUnits/m L [facility] Blood specimen (specimen) 03/23/2017 6:05 PM CDT 03/23/2017 7:03 PM CDT Darnell Tesfaye [facility] MICROBIOLOGY - GENERAL ORDERABLES Final Result Performing Organization Address [facility] de Phone Number [facility] [employer] [place] [address] * Hepatitis B surface antigen (03/23/2017 6:05 PM CDT) Pathologist [facility] HepBsAg Nonreactive Nonreactive [facility] Blood specimen (specimen) 03/23/2017 6:05 PM CDT 03/23/2017 7:03 PM CDT Darnell Tesfaye [facility] MICROBIOLOGY - GENERAL ORDERABLES Edited Result - Final Performing Organization Address [facility] [place] [address] * Hepatitis C antibody (03/23/2017 6:05 PM CDT) Pathologist [facility] Hep C Ab Nonreactive Nonreactive [facility] Comment: Interpretive Data Positive and greyzone results should be confirmed by a molecular method. If positive or greyzone, a second separately collected sample should be submitted for Hepatitis C Virus RNA. Detection and Quantitation by Real-Time Reverse Court Officer-PCR.Current Interpretive data was last revised on 2017. Blood specimen (specimen) 03/23/2017 6:05 PM CDT 03/23/2017 7:03 PM CDT Darnell Tesfaye [facility] MICROBIOLOGY - GENERAL ORDERABLES Edited Result - Final Performing Organization Address [facility] Co de Phone Number [facility] [employer] [place] [address] * Hepatitis B core antibody, total (03/23/2017 6:05 PM CDT) Hep B core IgG/IgM Nonreactive Nonreactive [facility] Blood specimen (specimen) 03/23/2017 6:05 PM CDT 03/23/2017 7:03 PM CDT Darnell Tesfaye LAB MICROBIOLOGY - GENERAL ORDERABLES Edited Result - Final Performing Organization Address City/[facility]/ZIP Co de Phone Number [facility] [place] [address] * Glucose POC (03/23/2017 5:46 PM CDT) Glucose, POC 173 70 - 199 mg/dL [facility] Blood specimen (specimen) 03/23/2017 5:46 PM CDT 03/23/2017 5:46 PM CDT us Eloise Coulter MD POINT OF CARE TEST ORDERABLES Final Result Performing Organization Address [facility] Co de Phone Number [facility] [place] [address] * Surgical pathology (03/23/2017 4:42 PM CDT) 03/23/2017 4:42 PM CDT 03/23/2017 5:00 PM CDT Narrative 03/27/2017 2:[address] [facility] [place] [address] SURGICAL PATHOLOGY REPORT FINAL Patient Name: JUVENAL GARVIN ? Address: [address] ??Service: ??Medical ??[place], [place] ??[address] ??Location: ??[facility] 0111 Taken: 03/23/2017 Gender: M ?? Received: 03/23/2017 : 1970 (Age: 46) ??Hospital #: [id number] Accessioned: 03/23/2017 ?Patient Type: ??[facility] Inpatient Reported: 03/27/2017 ? Physician(s): Alma Kumar M.D. Eloise Coulter MD ? Diagnosis: A. ??Soft tissue, left third finger synovium, biopsy ? 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 ?? Avni Rockwell M.D., Ph.D. ??Report Electronically Reviewed and Signed Out By ??Avni Rockwell M.D., Ph.D. 03/27/2017 14:49:40 Microscopic Description and Comment: Microscopic examination substantiates the above cited diagnosis. ?Clifton Harris MD ?History: The patient is a 46-year-old man who presents with periarticular erosions and soft tissue swelling of fingers and feet, suspicious for gout or inflammatory arthritis. ??Operative procedure: Left third finger PIP synovial biopsy. Specimen(s) Received: A: Synovial biopsy, 3rd long finger Gross Description: Specimen is received in a single formalin filled container labeled with the patient's name and third long finger PIP synovial biopsy and contains multiple miller- yellow core fragments of soft tissue ranging in length from 0.1 to 0.6 cm, each 0.1 cm in diameter. ??Wrapped. ??Labeled A1. ??Jar 0. and03/24/2017 09:47 ?Felicita Samson ? By this signature, I attest that the above diagnosis is based upon my personal examination of the slides(and/or other material). ?? Surgical Pathology report is available electronically in Clinical Desktop. The performance characteristics of some immunohistochemical stains, fluorescence in-situ hybridization tests and immunophenotyping by flow cytometry cited in this report (if any) were determined by the Surgical Pathology Department at [facility] as part of an ongoing air quality chemist program and in compliance with federally mandated regulations drawn from the Clinical Laboratory Improvement Act of 1988 (CLIA '88). ??Some of these tests rely on the use of analyte specific reagents and are subject to specific labeling requirements by the US Food and Drug Administration. ??Such diagnostic tests may only be performed in a facility that is certified by the Department of Health and Human Services as a high complexity laboratory under CLIA '88. ??The FDA has determined that such clearance or approval is not necessary. ??This test is used for clinical purposes. ??It should not be regarded as investigational or for research. ??Nevertheless, federal rules concerning the medical use of analyte specific reagents require that the following disclaimer be attached to the report: This test was developed and its performance characteristics determined by the Surgical Pathology Department of [facility]. ??It has not been cleared or approved by the U. S. Food and Drug Administration. Alma Kumar MD LAB PATHOLOGY ORDERABLES Final Result * Aerobic and anaerobic culture and gram stain (03/23/2017 4:30 PM CDT) Direct Specimen Exam Stain: No polymorphonuclear leukocytes seen. No organisms seen. [facility] Report Final Report: No growth [facility] Biopsy (Finger, long, left) 03/23/2017 4:30 PM CDT 03/23/2017 5:33 PM CDT Narrative [facility] - 03/24/2017 7:45 AM CDT Pip Synovium Specimens submitted from normally sterile body sites will have all bacterial morphotypes identified. Specimens that contain grossly mixed stone and/or are from body sites that are not normally sterile will be examined for Staphylococcus aureus, Pseudomonas aeruginosa, beta-hemolytic strep, vancomycin-resistant Enterococcus, Bacteroides fragilis, Clostridium perfringens and fungus. If any of these are isolated, the organism will be reported. Current interpretive data was last revised on 2012. Eloise Coulter MD LAB MICROBIOLOGY - GENERAL OR DERABLES Final Result Performing Organization Address [facility] Co de Phone Number [facility] [place] [address] * Glucose POC (03/23/2017 3:12 PM CDT) Pathologist [facility] [place] Glucose, POC 145 70 - 199 mg/dL [facility] Blood specimen (specimen) 03/23/2017 3:12 PM CDT 03/23/2017 3:12 PM CDT Eloise Coulter MD POINT OF CARE TEST ORDERABLES Final Result Performing Organization Address [facility] de Phone Number [facility] [place] [address] * (ABNORMAL) Basic metabolic panel (03/23/2017 12:57 PM CDT) Pathologist [facility] [place] Sodium 136 135 - 145 mmol/L [facility] Potassium, pl 5.5(H) 3.3 - 4.9 mmol/L [facility] Chloride 102 97 - 110 mmol/L [facility] CO2 24 22 - 32 mmol/L [facility] BUN 51(H) 8 - 25 mg/dL [facility] Glucose 177 70 - 199 mg/dL [facility] Creatinine 1.89(H) 0.80 - 1.30 mg/dL [facility] Calcium 9.3 8.5 - 10.3 mg/dL [facility] Anion gap 10 2 - 15 mmol/L [facility] Blood specimen (specimen) 03/23/2017 12:57 PM CDT 03/23/2017 1:24 PM CDT us Darnell Tesfaye [facility] BLOOD ORDERABLES Final Result Performing Organization Address [facility] Co de Phone Number [facility] [place] [address] * (ABNORMAL) Glucose POC (03/23/2017 11:37 AM CDT) Glucose, POC 239(H) 70 - 199 mg/dL [facility] Blood specimen (specimen) 03/23/2017 11:37 AM CDT 03/23/2017 11:37 AM CDT us Eloise Coulter MD POINT OF CARE TEST ORDERABLES Final Result Performing Organization Address [facility] de Phone Number [facility] [place] [address] * (ABNORMAL) Glucose POC (03/23/2017 10:42 AM CDT) Glucose, POC 292(H) 70 - 199 mg/dL [facility] Blood specimen (specimen) 03/23/2017 10:42 AM CDT 03/23/2017 10:42 AM CDT us Eloise Coulter MD POINT OF CARE TEST ORDERABLES Final Result Performing Organization Address [facility] Co de Phone Number [facility] [place] [address] * (ABNORMAL) Glucose POC (03/23/2017 9:12 AM CDT) Glucose, POC 333(H) 70 - 199 mg/dL [facility] Blood specimen (specimen) 03/23/2017 9:12 AM CDT 03/23/2017 9:12 AM CDT us Eloise Coulter MD POINT OF CARE TEST ORDERABLES Final Result Performing Organization Address City/[facility] Co de Phone Number [facility] [place] [address] * (ABNORMAL) Glucose POC (03/23/2017 8:07 AM CDT) Glucose, POC 377(H) 70 - 199 mg/dL [facility] Blood specimen (specimen) 03/23/2017 8:07 AM CDT 03/23/2017 8:07 AM CDT us Eloise Coulter MD POINT OF CARE TEST ORDERABLES Final Result Performing Organization Address [facility] Co de Phone Number [facility] [place] [address] * (ABNORMAL) Glucose POC (03/23/2017 8:04 AM CDT) Glucose, POC 339(H) 70 - 199 mg/dL [facility] Blood specimen (specimen) 03/23/2017 8:04 AM CDT 03/23/2017 8:04 AM CDT us Eloise Coulter MD POINT OF CARE TEST ORDERABLES Final Result Performing Organization Address [facility] Co de Phone Number [facility] [employer] [place] [address] * XR Foot 2 VW (03/22/2017 10:52 PM CDT) Anatomical Region Laterality Modality N/A Radiographic Toma ging 03/22/2017 10:5 2 PM CDT Narrative 03/22/2017 10:52 PM CDT ALMA KUMAR M.D. FINAL REPORT ACC# ??Date Time ??Exam [id number] Mar 22, 2017 17:52:00 20642 Foot 2 views L [id number] Mar 22, 2017 17:52:00 [id number] Foot 2 views R EXAMINATION: ?? 1. Left foot 2 views 2. Right foot 2 views HISTORY: Metatarsal fractures FINDINGS: Two views each foot nonweightbearing submitted without comparison. Left foot: There are old healed third through fifth metatarsal fractures. Metatarsal cortical thickening is present. No acute fractures are identified. There is erosive arthropathy of the tarsometatarsal joints with dorsal fragmentation. Is soft tissue swelling about the foot. Arterial atherosclerosis is noted. Right foot: Sequela of a prior attempted right first metatarsophalangeal joint arthroplasty or is severe erosive arthropathy is noted. There is a partially ununited fracture. There is erosive arthropathy of the tarsometatarsal joint with dorsal fragmentation. Metatarsal cortical thickening is present. There is diffuse soft tissue swelling. Arterial atherosclerosis is present. IMPRESSION: ?? 1. Bilateral mid foot erosive arthropathy with dorsal fragmentation. These findings can be seen in the setting of inflammatory arthropathy such as rheumatoid are reactive arthritis. This distribution would be atypical for crystalline arthropathy. Neuropathic arthropathy is also considered. Requested By: ALEX LEMUS M.D. Dictated By: ?? ALMA KUMAR M.D. ??on Mar ??2016 ??6:29A This document has been electronically signed by: ALMA KUMAR M.D. on Mar ??2016 ??6:29A [id number] Procedure Note Miscellaneous, Not In File / Provider, MD Zev - 03/23/2017 ALMA KUMAR M.D. FINAL REPORT ACC# Date Time Exam [id number] Mar 22, 2017 17:52:00 58592 Foot 2 views L [id number] Mar 22, 2017 17:52:00 [id number] Foot 2 views R EXAMINATION: 1. Left foot 2 views 2. Right foot 2 views HISTORY: Metatarsal fractures FINDINGS: Two views each foot nonweightbearing submitted without comparison. Left foot: There are old healed third through fifth metatarsal fractures. Metatarsal cortical thickening is present. No acute fractures are identified. There is erosive arthropathy of the tarsometatarsal joints with dorsal fragmentation. Is soft tissue swelling about the foot. Arterial atherosclerosis is noted. Right foot: Sequela of a prior attempted right first metatarsophalangeal joint arthroplasty or is severe erosive arthropathy is noted. There is a partially ununited fracture. There is erosive arthropathy of the tarsometatarsal joint with dorsal fragmentation. Metatarsal cortical thickening is present. There is diffuse soft tissue swelling. Arterial atherosclerosis is present. IMPRESSION: 1. Bilateral mid foot erosive arthropathy with dorsal fragmentation. These findings can be seen in the setting of inflammatory arthropathy such as rheumatoid are reactive arthritis. This distribution would be atypical for crystalline arthropathy. Neuropathic arthropathy is also considered. Requested By: ALEX LEMUS M.D. Dictated By: ALMA KUMAR M.D. on Mar 23 2017 6:29A This document has been electronically signed by: ALMA KUMAR M.D. on Mar 23 2017 6:29A [id number] us Not In File Miscellaneous IMG XR PROCEDURES Ann Marie l Result * XR Foot 2 VW (03/22/2017 10:52 PM CDT) Anatomical Region Laterality Modality N/A Radiographic Toma ging 03/22/2017 10:5 2 PM CDT Narrative 03/22/2017 10:52 PM CDT ALMA KUMAR M.D. FINAL REPORT ACC# ??Date Time ??Exam [id number] Mar 22, 2017 17:52:00 17735 Foot 2 views L [id number] Mar 22, 2017 17:52:00 [id number] Foot 2 views R EXAMINATION: ?? 1. Left foot 2 views 2. Right foot 2 views HISTORY: Metatarsal fractures FINDINGS: Two views each foot nonweightbearing submitted without comparison. Left foot: There are old healed third through fifth metatarsal fractures. Metatarsal cortical thickening is present. No acute fractures are identified. There is erosive arthropathy of the tarsometatarsal joints with dorsal fragmentation. Is soft tissue swelling about the foot. Arterial atherosclerosis is noted. Right foot: Sequela of a prior attempted right first metatarsophalangeal joint arthroplasty or is severe erosive arthropathy is noted. There is a partially ununited fracture. There is erosive arthropathy of the tarsometatarsal joint with dorsal fragmentation. Metatarsal cortical thickening is present. There is diffuse soft tissue swelling. Arterial atherosclerosis is present. IMPRESSION: ?? 1. Bilateral mid foot erosive arthropathy with dorsal fragmentation. These findings can be seen in the setting of inflammatory arthropathy such as rheumatoid are reactive arthritis. This distribution would be atypical for crystalline arthropathy. Neuropathic arthropathy is also considered. Requested By: ALEX LEMUS M.D. Dictated By: ?? ALMA KUMAR M.D. ??on Mar ??2016 ??6:29A This document has been electronically signed by: ALMA KUMAR M.D. on Mar?2016 ??6:29A [id number] Procedure Note Miscellaneous, Not In File / Provider, MD Zev - 03/23/2017 ALMA KUMAR M.D. FINAL REPORT ACC# Date Time Exam [id number] Mar 22, 2017 17:52:00 15114 Foot 2 views L [id number] Mar 22, 2017 17:52:00 [id number] Foot 2 views R EXAMINATION: 1. Left foot 2 views 2. Right foot 2 views HISTORY: Metatarsal fractures FINDINGS: Two views each foot nonweightbearing submitted without comparison. Left foot: There are old healed third through fifth metatarsal fractures. Metatarsal cortical thickening is present. No acute fractures are identified. There is erosive arthropathy of the tarsometatarsal joints with dorsal fragmentation. Is soft tissue swelling about the foot. Arterial atherosclerosis is noted. Right foot: Sequela of a prior attempted right first metatarsophalangeal joint arthroplasty or is severe erosive arthropathy is noted. There is a partially ununited fracture. There is erosive arthropathy of the tarsometatarsal joint with dorsal fragmentation. Metatarsal cortical thickening is present. There is diffuse soft tissue swelling. Arterial atherosclerosis is present. IMPRESSION: 1. Bilateral mid foot erosive arthropathy with dorsal fragmentation. These findings can be seen in the setting of inflammatory arthropathy such as rheumatoid are reactive arthritis. This distribution would be atypical for crystalline arthropathy. Neuropathic arthropathy is also considered. Requested By: ALEX LEMUS M.D. Dictated By: ALMA KUMAR M.D. on Mar 23 2017 6:29A This document has been electronically signed by: ALMA KUMAR M.D. on Mar 23 2017 6:29A [id number] us Not In File Miscellaneous IMG XR PROCEDURES Ann Marie l Result * Cyclic citrul peptide antibody, IgG (03/22/2017 9:06 PM CDT) [facility] CCP Ab <0.5 units/mL [facility] Comment: Interpretive data Negative: <3 units/mL Positive: > or equal to 3 units/mL Current interpretive data was last revised on 2016. Blood specimen (specimen) 03/22/2017 9:06 PM CDT 03/22/2017 10:41 PM CDT Alex Lemus MD LAB BLOOD ORDERABLES Fi nal Result Performing Organization Address City/[facility]/ZIP Co de Phone Number [facility] Department [place] [employer] [place] [address] * Antithrombin (03/22/2017 9:06 PM CDT) [facility] Rheumatoid factor, quant <10.0 0.1 - 15.0 IUnits/mL [facility] Blood specimen (specimen) 03/22/2017 9:06 PM CDT 03/22/2017 10:41 PM CDT Alex Lemus MD LAB BLOOD ORDERABLES Fi nal Result Performing Organization Address [facility] Co de Phone Number [facility] Department [place] [employer] [place] [address] * (ABNORMAL) Basic metabolic panel (03/22/2017 9:06 PM CDT) [facility] Sodium 132(L) 135 - 145 mmol/L [facility] Potassium, pl 5.5(H) 3.3 - 4.9 mmol/L [facility] Chloride 100 97 - 110 mmol/L [facility] CO2 23 22 - 32 mmol/L [facility] BUN 49(H) 8 - 25 mg/dL [facility] Glucose 258(H) 70 - 199 mg/dL [facility] Creatinine 2.01(H) 0.80 - 1.30 mg/dL [facility] Calcium 8.7 8.5 - 10.3 mg/dL [facility] Anion gap 9 2 - 15 mmol/L [facility] Blood specimen (specimen) 03/22/2017 9:06 PM CDT 03/22/2017 10:41 PM CDT Result [facility] Alex Lemus MD LAB BLOOD ORDERABLES Ed ited Result - Final Performing Organization Address [facility] de Phone Number [facility] [place] [address] * aPTT (03/22/2017 9:06 PM CDT) aPTT 31.6 25.0 - 37.0 sec [facility] Comment: Interpretive Data Therapeutic heparin range:60.0 - 94.0 sec based on correlation with therapeutic heparin activity range of 0.3 -0.7 Units/mL. Current interpretive data was last revised on 2011. Blood specimen (specimen) 03/22/2017 9:06 PM CDT 03/22/2017 10:39 PM CDT Result [facility] Alex Lemus MD LAB BLOOD ORDERABLES Fi nal Result Performing Organization Address [facility] de Phone Number [facility] [place] [address] * Protime-INR (03/22/2017 9:06 PM CDT) PT 13.5 9.2 - 14.0 sec [facility] INR 1.18 0.81 - 1.22 [facility] Comment: Interpretive Data Inpatient therapeutic ranges* Atrial fibrillation ?2.0-3.0 INR Venous thrombo-embolism ?2.0-3.0 INR Bioprosthetic heart valve ?* Mechanical heart valve, bileaflet or tilting disk,aortic position ? 2.0-3.0 INR All other,or bileaflet or tilting disk, in mitral position ? 2.5-3.5 INR *See the pharmacy resource directory (PHRED) for an updated copy of the Tool Book at [email or web address] Current Interpretive Data was last revised 2011. Blood specimen (specimen) 03/22/2017 9:06 PM CDT 03/22/2017 10:39 PM CDT Alex Lemus MD LAB BLOOD ORDERABLES Fi nal Result [facility] [place] [address] * (ABNORMAL) CBC without differential (03/22/2017 9:06 PM CDT) WBC 6.43 3.80 - 9.90 K/cumm [facility] RBC 2.97(L) 4.30 - 5.80 M/cumm [facility] Hgb 8.2(L) 13.0 - 17.5 g/dL [facility] Hct 26.0(L) 38.9 - 50.3 % [facility] MCV 87.5 81.3 - 96.4 fL [facility] MCH 27.6 27.1 - 33.3 pg [facility] MCHC 31.5(L) 32.3 - 35.7 g/dL [facility] RDW CV 12.9 11.1 - 14.9 % [facility] RDW SD 41.6 35.7 - 48.1 fL [facility] NRBC 0.0 0.0 - 0.2 % [facility] NRBC abs 0.00 0.00 - 0.01 K/cumm [facility] Plt 222 150 - 400 K/cumm [facility] MPV 10.0 9.1 - 12.3 fL [facility] Blood specimen (specimen) 03/22/2017 9:06 PM CDT 03/22/2017 10:41 PM CDT us Alex Lemus MD LAB BLOOD ORDERABLES Fi nal Result Performing Organization Address [facility] Co de Phone Number [facility] [place] [address] * (ABNORMAL) Glucose POC (03/22/2017 8:56 PM CDT) [facility] Glucose, POC 249(H) 70 - 199 mg/dL [facility] Blood specimen (specimen) 03/22/2017 8:56 PM CDT 03/22/2017 8:56 PM CDT us Eloise Coulter MD POINT OF CARE TEST ORDERABLES Final Result Performing Organization Address [facility] de Phone Number [facility] [place] [employer] [place] [address] * Dexa Axial Skeleton Bone Density 1 or 2 Site (03/22/2017 7:17 PM CDT) Anatomical Region Laterality Modality Body N/A Radiographic Toma ging 03/22/2017 7:17 PM CDT Narrative 03/22/2017 7:17 PM CDT RUPINDER ANDRES M.D. ISIDRO ARMENTA M.D. FINAL REPORT The radiology attending physician has personally reviewed this study, and has reviewed and/or edited this written report and agrees with it. EXAMINATION: ?? BONE DENSITOMETRY OF THE SPINE AND HIP DATE OF STUDY: ??03/22/2017 HISTORY: ??46-year-old man with polyarthralgia, reported fractures of foot, suspicious for osteoporosis. History of stage III chronic kidney disease. He is being treated with vitamin D. ??Evaluate bone mineral density. Additional risk factors for fracture: Type 2 diabetes requiring insulin treatment. FINDINGS (SPINE): The bone mineral density of L1-L4 was assessed by dual-energy x-ray absorptiometry. The average bone mineral density within this region is 1.173 gm/sq-cm. This is 1.1 standard deviations above the mean of the average bone mineral density for age- and gender-matched subjects (the Z-score). It is 0.7 standard deviations above the mean peak bone mineral density in young adults (the T-score). FINDINGS (FEMORAL NECK): The bone mineral density of the left femoral neck was assessed by dual-energy x-ray absorptiometry. The average bone mineral density within the femoral neck region is 0.876 gm/sq-cm. This is 0.3 standard deviations above the mean of the average bone mineral density for age- and gender-matched subjects (the Z-score). It is 0.4 standard deviations below the mean peak bone mineral density in young adults (the T-score). FINDINGS (TOTAL HIP): The bone mineral density of the left hip was assessed by dual-energy x-ray absorptiometry. The average bone mineral density within the total hip region is 1.122 gm/sq-cm. This is 0.9 standard deviations above the mean of the average bone mineral density for age- and gender-matched subjects (the Z-score). It is 0.6 standard deviations above the mean peak bone mineral density in young adults (the T-score). SUMMARY OF CURRENT RESULTS: Region ? BMD ?T-score ??Z-score AP Spine (L1-L4) ? 1.173 ?0.7 ?1.1 Femoral Neck (Left) ?0.876 ?? -0.4 ?0.3 Total Hip (Left) ? 1.122 ?0.6 ?0.9 ?? IMPRESSION: ?? - 1. The bone mineral density of the lumbar spine is within the expected range for age. 2. The bone mineral density of the left femoral neck is within the expected range for age. 3. The bone mineral density of the left total hip is within the expected range for age. 4. Calculation of fracture risk using the FRAX model is not appropriate in certain settings. ??It was not performed in this patient because the patient met the following condition(s): ??man under age 50, normal bone density. General comments regarding interpretation of bone density measurements: a) ??In children, premenopausal woman and males under age 50 not at increased risk for fractures only Z-scores, not T-scores are used to indicate risk. ??A Z-score above -2.0 is defined as within the expected range for age and Z-score at or less than -2.0 is below the expected range for age . ??A Z-score below the expected range for age in a patient with recent fractures and/or chronic corticosteroid treatment is consistent with a diagnosis of osteoporosis. b) ??In post menopausal women and males over 50, comparison of the measured bone mineral density with the average value in young normal subjects (the T-score ) has been found to be useful in assessing fracture risk. ??Fracture risk approximately doubles for each 1.0 standard deviation (SD) in individual's hip or spine bone mineral density is below the average value of young normal subjects. ??The World Health Organization (WHO) has defined T-scores of -1.0 to -2.5 as diagnostic of low bone mass (OSTEOPENIA), and T-scores of -2.5 or lower to be diagnostic of OSTEOPOROSIS, based on the site of lowest bone density. Note that there will be a change in reporting format and reference databases as patients move from the younger population (group a) to the older population (group b) The National Osteoporosis Foundation (www.nof.org) recommends adequate intake of calcium and vitamin D and regular weight-bearing exercise in all patients. ??They recommend pharmacologic treatment in postmenopausal women and men age 50 and older presenting with any of the followin) ? Osteoporosis, after appropriate evaluation to exclude secondary causes. 2) ? A hip or vertebral (clinical or radiographic) fracture, regardless of the bone density. 3) ? Low bone mass (Osteopenia) and one or more of: other prior fractures, secondary causes associated with high risk of fracture (such as glucocorticoid use or total immobilization), or computed high risk of fracture (10-yr probability of hip fracture >= 3% or a 10-yr probability of any major osteoporosis-related fracture >= 20% based on the [place].-adapted WHO algorithm), available at http://www.shef.ac.uk/FRAX). ?? Requested By: ALEX LEMUS M.D. Dictated By: ?? ISIDRO ARMENTA M.D. ??on Mar ??2016 ??2:30P This document has been electronically signed by: RUPINDER ANDRES M.D. on Mar ??2016 ??2:38P [id number] Procedure Note Miscellaneous, Not In File / Provider, MD Zev - 03/22/2017 RUPINDER ANDRES M.D. ISIDRO ARMENTA M.D. FINAL REPORT The radiology attending physician has personally reviewed this study, and has reviewed and/or edited this written report and agrees with it. EXAMINATION: BONE DENSITOMETRY OF THE SPINE AND HIP DATE OF STUDY: 03/22/2017 HISTORY: 46-year-old man with polyarthralgia, reported fractures of foot, suspicious for osteoporosis. History of stage III chronic kidney disease. He is being treated with vitamin D. Evaluate bone mineral density. Additional risk factors for fracture: Type 2 diabetes requiring insulin treatment. FINDINGS (SPINE): The bone mineral density of L1-L4 was assessed by dual-energy x-ray absorptiometry. The average bone mineral density within this region is 1.173 gm/sq-cm. This is 1.1 standard deviations above the mean of the average bone mineral density for age- and gender-matched subjects (the Z-score). It is 0.7 standard deviations above the mean peak bone mineral density in young adults (the T-score). FINDINGS (FEMORAL NECK): The bone mineral density of the left femoral neck was assessed by dual-energy x-ray absorptiometry. The average bone mineral density within the femoral neck region is 0.876 gm/sq-cm. This is 0.3 standard deviations above the mean of the average bone mineral density for age- and gender-matched subjects (the Z-score). It is 0.4 standard deviations below the mean peak bone mineral density in young adults (the T-score). FINDINGS (TOTAL HIP): The bone mineral density of the left hip was assessed by dual-energy x-ray absorptiometry. The average bone mineral density within the total hip region is 1.122 gm/sq-cm. This is 0.9 standard deviations above the mean of the average bone mineral density for age- and gender-matched subjects (the Z-score). It is 0.6 standard deviations above the mean peak bone mineral density in young adults (the T-score). SUMMARY OF CURRENT RESULTS: Region BMD T-score Z-score AP Spine (L1-L4) 1.173 0.7 1.1 Femoral Neck (Left) 0.876 -0.4 0.3 Total Hip (Left) 1.122 0.6 0.9 IMPRESSION: - 1. The bone mineral density of the lumbar spine is within the expected range for age. 2. The bone mineral density of the left femoral neck is within the expected range for age. 3. The bone mineral density of the left total hip is within the expected range for age. 4. Calculation of fracture risk using the FRAX model is not appropriate in certain settings. It was not performed in this patient because the patient met the following condition(s): man under age 50, normal bone density. General comments regarding interpretation of bone density measurements: a) In children, premenopausal woman and males under age 50 not at increased risk for fractures only Z-scores, not T-scores are used to indicate risk. A Z-score above -2.0 is defined as within the expected range for age and Z-score at or less than -2.0 is below the expected range for age . A Z-score below the expected range for age in a patient with recent fractures and/or chronic corticosteroid treatment is consistent with a diagnosis of osteoporosis. b) In post menopausal women and males over 50, comparison of the measured bone mineral density with the average value in young normal subjects (the T-score ) has been found to be useful in assessing fracture risk. Fracture risk approximately doubles for each 1.0 standard deviation (SD) in individual's hip or spine bone mineral density is below the average value of young normal subjects. The World Health Organization (WHO) has defined T-scores of -1.0 to -2.5 as diagnostic of low bone mass (OSTEOPENIA), and T-scores of -2.5 or lower to be diagnostic of OSTEOPOROSIS, based on the site of lowest bone density. Note that there will be a change in reporting format and reference databases as patients move from the younger population (group a) to the older population (group b) The National Osteoporosis Foundation (www.nof.org) recommends adequate intake of calcium and vitamin D and regular weight-bearing exercise in all patients. They recommend pharmacologic treatment in postmenopausal women and men age 50 and older presenting with any of the followin) Osteoporosis, after appropriate evaluation to exclude secondary causes. 2) A hip or vertebral (clinical or radiographic) fracture,regardless of the bone density. 3) Low bone mass (Osteopenia) and one or more of: other prior fractures, secondary causes associated with high risk of fracture (such as glucocorticoid use or total immobilization), or computed high risk of fracture (10-yr probability of hip fracture >= 3% or a 10-yr probability of any major osteoporosis-related fracture >= 20% based on the [place].-adapted WHO algorithm), available at http://www.shef.ac.uk/FRAX). Requested By: ALEX LEMUS M.D. Dictated By: ISIDRO ARMENTA M.D. on Mar 22 2017 2:30P This document has been electronically signed by: RUPINDER ANDRES M.D. on Mar 22 2017 2:38P [id number] us Not In File Miscellaneous IMG DXA PROCEDURES Fin al Result * (ABNORMAL) Glucose POC (03/22/2017 5:59 PM CDT) Glucose, POC 201(H) 70 - 199 mg/dL [facility] Blood specimen (specimen) 03/22/2017 5:59 PM CDT 03/22/2017 5:59 PM CDT us Eloise Coulter MD POINT OF CARE TEST ORDERABLES Final Result [facility] [place] [address] * XR Hand 3+ VW (03/22/2017 4:37 PM CDT) Anatomical Region Laterality Modality N/A Radiographic Toma ging 03/22/2017 4:37 PM CDT Narrative 03/22/2017 4:37 PM CDT [place] CONTE M.D. FINAL REPORT ACC# ??Date Time ??Exam [id number] Mar 22, 2017 11:37:00 [id number] Hand minimum 3 views L [id number] Mar 22, 2017 11:37:00 [id number] Hand minimum 3 views R EXAMINATION: ? 1. Left hand minimum 3 views 2. Right hand minimum 3 views HISTORY: ??Bilateral hand pain FINDINGS: ?? Left hand: Three views of the left hand are compared to the prior examination dated 11/20/2014. There has been interval progression of periarticular erosions involving the first carpometacarpal and proximal interphalangeal joints of the second, third and fourth fingers. There is marked soft tissue swelling adjacent to the proximal interphalangeal joint of the long finger. There is no acute fracture. Alignment is normal. Right hand: 3 views of the right hand are submitted without comparison. Alignment is normal. There are no fractures. There are periarticular erosions involving primarily the proximal and distal interphalangeal joints of the long finger and proximal interphalangeal joint of the ring finger. There is mild soft tissue swelling of the long finger. 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 IMPRESSION: ?? Periarticular erosions in both hands, left greater than right, with associated soft tissue swelling. The primary differential consideration would be an inflammatory or crystalline arthropathy. Rheumatology consult with appropriate laboratory workup is recommended. Requested By: DARNELL TESFAYE M.D. Dictated By: ?? KY CONTE M.D. ??on Mar?2016 11:57A This document has been electronically signed by: KY CONTE M.D. on Mar ??2016 11:57A [id number] Procedure Note Miscellaneous, Not In File / Provider, MD Zev - 03/22/2017 KY CONTE M.D. FINAL REPORT ACC# Date Time Exam [id number] Mar 22, 2017 11:37:00 [id number] Hand minimum 3 views L [id number] Mar 22, 2017 11:37:00 [id number] Hand minimum 3 views R EXAMINATION: 1. Left hand minimum 3 views 2. Right hand minimum 3 views HISTORY: Bilateral hand pain FINDINGS: Left hand: Three views of the left hand are compared to the prior examination dated 11/20/2014. There has been interval progression of periarticular erosions involving the first carpometacarpal and proximal interphalangeal joints of the second, third and fourth fingers. There is marked soft tissue swelling adjacent to the proximal interphalangeal joint of the long finger. There is no acute fracture. Alignment isnormal. Right hand: 3 views of the right hand are submitted without comparison. Alignment is normal. There are no fractures. There are periarticular erosions involving primarily the proximal and distal interphalangeal joints of the long finger and proximal interphalangeal joint of the ring finger. There is mild soft tissue swelling of the long finger. 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 IMPRESSION: Periarticular erosions in both hands, left greater than right, with associated soft tissue swelling. The primary differential consideration would be an inflammatory or crystalline arthropathy. Rheumatology consult with appropriate laboratory workup is recommended. Requested By: DARNELL TESFAYE M.D. Dictated By: KY CONTE M.D. on Mar 22 2017 11:57A This document has been electronically signed by: KY CONTE M.D. on Mar 22 2017 11:57A [id number] us Not In File Miscellaneous IMG XR PROCEDURES Ann Marie l Result * XR Hand 3+ VW (03/22/2017 4:37 PM CDT) Anatomical Region Laterality Modality N/A Radiographic Toma ging 03/22/2017 4:37 PM CDT Narrative 03/22/2017 4:37 PM CDT KY CONTE M.D. FINAL REPORT ACC# ??Date Time ??Exam [id number] Mar 22, 2017 11:37:00 [id number] Hand minimum 3 views L [id number] Mar 22, 2017 11:37:00 [id number] Hand minimum 3 views R EXAMINATION: ? 1. Left hand minimum 3 views 2. Right hand minimum 3 views HISTORY: ??Bilateral hand pain FINDINGS: ?? Left hand: Three views of the left hand are compared to the prior examination dated 11/20/2014. There has been interval progression of periarticular erosions involving the first carpometacarpal and proximal interphalangeal joints of the second, third and fourth fingers. There is marked soft tissue swelling adjacent to the proximal interphalangeal joint of the long finger. There is no acute fracture. Alignment is normal. Right hand: 3 views of the right hand are submitted without comparison. Alignment is normal. There are no fractures. There are periarticular erosions involving primarily the proximal and distal interphalangeal joints of the long finger and proximal interphalangeal joint of the ring finger. There is mild soft tissue swelling of the long finger. 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 IMPRESSION: ?? Periarticular erosions in both hands, left greater than right, with associated soft tissue swelling. The primary differential consideration would be an inflammatory or crystalline arthropathy. Rheumatology consult with appropriate laboratory workup is recommended. Requested By: DARNELL TESFAYE M.D. Dictated By: ?? KY CONTE M.D. ??on Mar?2016 11:57A This document has been electronically signed by: KY CONTE M.D. on Mar?2016 11:57A [id number] Procedure Note Miscellaneous, Not In File / Provider, MD Zev - 03/22/2017 KY CONTE M.D. FINAL REPORT ACC# Date Time Exam [id number] Mar 22, 2017 11:37:00 86076 Hand minimum 3 views L [id number] Mar 22, 2017 11:37:00 [id number] Hand minimum 3 views R EXAMINATION: 1. Left hand minimum 3 views 2. Right hand minimum 3 views HISTORY: Bilateral hand pain FINDINGS: Left hand: Three views of the left hand are compared to the prior examination dated 11/20/2014. There has been interval progression of periarticular erosions involving the first carpometacarpal and proximal interphalangeal joints of the second, third and fourth fingers. There is marked soft tissue swelling adjacent to the proximal interphalangeal joint of the long finger. There is no acute fracture. Alignment isnormal. Right hand: 3 views of the right hand are submitted without comparison. Alignment is normal. There are no fractures. There are periarticular erosions involving primarily the proximal and distal interphalangeal joints of the long finger and proximal interphalangeal joint of the ring finger. There is mild soft tissue swelling of the long finger. 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 IMPRESSION: Periarticular erosions in both hands, left greater than right, with associated soft tissue swelling. The primary differential consideration would be an inflammatory or crystalline arthropathy. Rheumatology consult with appropriate laboratory workup is recommended. Requested By: DRANELL TESFAYE M.D. Dictated By: KY CONTE M.D. on Mar 22 2017 11:57A This document has been electronically signed by: KY CONTE M.D. on Mar 22 2017 11:57A [id number] us Not In File Miscellaneous IMG XR PROCEDURES Ann Marie l Result * (ABNORMAL) Vitamin D 25 hydroxy (03/22/2017 2:46 PM CDT) Vitamin D 25-OH 22.7(L) 30.0 - 100.0 ng/mL [facility] Blood specimen (specimen) 03/22/2017 2:46 PM CDT 03/22/2017 3:57 PM CDT Alex Lemus MD LAB BLOOD ORDERABLES Fi nal Result Performing Organization Address City/[facility]/ZIP Co de Phone Number [facility] [employer] [place] [address] * Glucose POC (03/22/2017 2:35 PM CDT) [facility] Glucose, POC 130 70 - 199 mg/dL [facility] Blood specimen (specimen) 03/22/2017 2:35 PM CDT 03/22/2017 2:35 PM CDT us Eloise Coulter MD POINT OF CARE TEST ORDERABLES Final Result Performing Organization Address [facility] Co de Phone Number [facility] [employer] [place] [address] * Glucose POC (03/22/2017 11:47 AM CDT) [facility] Glucose, POC 185 70 - 199 mg/dL [facility] Blood specimen (specimen) 03/22/2017 11:47 AM CDT 03/22/2017 11:47 AM CDT us Eloise Coulter MD POINT OF CARE TEST ORDERABLES Final Result Performing Organization Address City/[facility] Co de Phone Number [facility] [employer] [place] [address] * Glucose POC (03/22/2017 8:38 AM CDT) Glucose, POC 198 70 - 199 mg/dL [facility] Blood specimen (specimen) 03/22/2017 8:38 AM CDT 03/22/2017 8:38 AM CDT us Eloise Coulter MD POINT OF CARE TEST ORDERABLES Final Result [facility] Department [place] [address] * (ABNORMAL) Lipid panel (03/21/2017 10:32 PM CDT) Cholesterol 157 30 - 200 mg/dL [facility] Comment: Interpretive Data Desirable: ?<200 mg/dL Borderline high: ??200-239 mg/dL High: ? > or = 240 mg/dL Literature Reference: National Cholesterol Education Program (NCEP) Expert Panel on Detection, Evaluation, and Treatment of High Blood Cholesterol in Adults (Adult Treatment Panel III). ??Circulation 2004; 110:227. Current interpretive data was last revised on 2015. Triglycerides 146 0 - 150 mg/dL [facility] Comment: Interpretive Data Desirable: ? < 150 mg/dL Borderline High: ? 150 - 199 mg/dL High: ?200 - 499 mg/dL Very High: ? > or = 499 mg/dL Literature Reference: See Cholesterol Current interpretive data was last revised on 2015. HDL 34(L) >=40 mg/dL [facility] Comment: Interpretive Data Less than 40 mg/dL - low; A major risk factor for heart disease. Greater than or equal to 60 mg/dL - High; ??considered protective of heart disease. Literature Reference: See Cholesterol Current interpretive data was last revised on 2015. LDL, calculated 94 10 - 129 mg/dL [facility] Comment: Interpretive Data Optimal: ? < 100 mg/dL Near Optimal: ?100 - 129 mg/dL Borderline High: ?? 130 - 159 mg/dL High: ?160 - 189 mg/dL Very high: ? > or = 190 mg/dL Literature Reference: See Cholesterol Current interpretive data was last revised on 2015. Non-HDL Cholesterol 123 mg/dL [facility] Comment: Interpretive Data When triglycerides are >200 mg/dL, non-HDL C is a secondary target of therapy, with a goal 30 mg/dL higher than the identified LDL-C goal. Reference: ??See Cholesterol Reference. Current interpretive data was last revised 2015. Blood specimen (specimen) 03/21/2017 10:32 PM CDT 03/21/2017 11:26 PM CDT Darnell Tesfaye [facility] BLOOD ORDERABLES Final Result Performing Organization Address [facility] de Phone Number [facility] [employer] [place] [address] * (ABNORMAL) Hemoglobin A1c (03/21/2017 10:32 PM CDT) Pathologist [facility] Hgb A1C 7.4(H) 4.0 - 6.0 % [facility] Estimated Average Glucose 166 mg/dL [facility] Comment: The ADA recommends reporting an estimated Average Glucose (eAG) with all Hemoglobin A1c results using the equation derived from a study of 507 normal and diabetic adults. ??Minority populations were underrepresented and children were not included. ?? (Diabetes Care 31:9680-3131, 2007). ??The eAG is not equivalent to a fasting glucose. Blood specimen (specimen) 03/21/2017 10:32 PM CDT 03/21/2017 11:29 PM CDT Darnell Tesfaye [facility] BLOOD ORDERABLES Edite d Result - Final Performing Organization Address [facility] de Phone Number [facility] [employer] [place] [address] * TSH reflex to free T4 (03/21/2017 10:32 PM CDT) TSH 0.80 0.30 - 4.20 mcIUnit/mL [facility] Comment: Interpretive Data Hyperthyroid: ??<0.1 mcIUnit/mL Hypothyroid: ??>12.0 mcIUnit/mL Current interpretive data was last revised on 00. Blood specimen (specimen) 03/21/2017 10:32 PM CDT 03/21/2017 11:26 PM CDT Darnell Tesfaye LAB BLOOD ORDERABLES Edite d Result - Final Performing Organization Address [facility] Co de Phone Number [facility] [place] [address] * Ferritin (03/21/2017 10:32 PM CDT) Ferritin 210 30 - 400 ng/mL [facility] Blood specimen (specimen) 03/21/2017 10:32 PM CDT 03/21/2017 11:26 PM CDT Darnell Tesfaye [facility] BLOOD ORDERABLES Edite d Result - Final Performing Organization Address [facility] de Phone Number [facility] [employer] [place] [address] * (ABNORMAL) Iron profile (03/21/2017 10:32 PM CDT) Iron 22(L) 50 - 150 mcg/dL [facility] UIBC 163 112 - 347 mcg/dL [facility] TIBC 185(L) 250 - 400 mcg/dL [facility] Transferrin saturation 12(L) 20 - 50 % [facility] Blood specimen (specimen) 03/21/2017 10:32 PM CDT 03/21/2017 11:26 PM CDT Darnell Tesfaye LAB BLOOD ORDERABLES Final Result Performing Organization Address [facility] Co de Phone Number [facility] [place] [address] * Troponin I (03/21/2017 10:32 PM CDT) [facility] Troponin I 0.03 0.00 - 0.03 ng/mL [facility] Comment: Interpretive Data Serial determinations are recommended for the diagnosis of myocardial infarction (Third [place] Definition of Myocardial Infarction. ??J Am Elena Cardiol 2012;60:1581-98). Current interpretive data was last revised on 13. Blood specimen (specimen) 03/21/2017 10:32 PM CDT 03/21/2017 11:26 PM CDT Darnell Tesfaye LAB BLOOD ORDERABLES Edite d Result - Final [facility] [place] [address] * (ABNORMAL) Comprehensive metabolic panel (03/21/2017 10:32 PM CDT) [facility] Sodium 136 135 - 145 mmol/L [facility] Potassium, pl 5.3(H) 3.3 - 4.9 mmol/L [facility] CO2 22 22 - 32 mmol/L [facility] BUN 46(H) 8 - 25 mg/dL [facility] Glucose 320(H) 70 - 199 mg/dL [facility] Creatinine 1.98(H) 0.80 - 1.30 mg/dL [facility] Calcium 8.8 8.5 - 10.3 mg/dL [facility] Chloride 103 97 - 110 mmol/L [facility] Albumin 3.0(L) 3.5 - 5.0 g/dL [facility] AST 27 10 - 50 Units/L [facility] ALT 36 7 - 55 Units/L [facility] Alk phos 102 40 - 130 Units/L [facility] Bilirubin, total 0.3 0.1 - 1.2 mg/dL [facility] Protein, pl 6.6 6.5 - 8.5 g/dL [facility] Anion gap 11 2 - 15 mmol/L [facility] Blood specimen (specimen) 03/21/2017 10:32 PM CDT 03/21/2017 11:26 PM CDT [facility] BLOOD ORDERABLES Final Result Performing Organization Address [facility] Co de Phone Number [facility] [place] [address] * Differential, auto (03/21/2017 10:32 PM CDT) Neutrophil pct 69.3 % [facility] Imm gran pct 0.4 % [facility] Lymphocyte pct 19.3 % [facility] Monocyte pct 9.4 % [facility] Eosinophil pct 1.3 % [facility] Basophil pct 0.3 % [facility] Neutrophil abs 4.69 1.70 - 6.50 K/cumm [facility] Imm gran abs 0.03 0.00 - 0.10 K/cumm [facility] Lymphocyte abs 1.31 0.80 - 3.30 K/cumm [facility] Monocyte abs 0.64 0.20 - 0.80 K/cumm [facility] Eosinophil abs 0.09 0.00 - 0.50 K/cumm [facility] Basophil abs 0.02 0.00 - 0.10 K/cumm [facility] Blood specimen (specimen) 03/21/2017 10:32 PM CDT 03/21/2017 11:25 PM CDT [facility] BLOOD ORDERABLES Final Result Performing Organization Address City/[facility]/ZIP Co de Phone Number ALESSANDRA [facility] [place] [address] * (ABNORMAL) CBC with auto differential (03/21/2017 10:32 PM CDT) WBC 6.78 3.80 - 9.90 K/cumm [facility] RBC 2.92(L) 4.30 - 5.80 M/cumm [facility] Hgb 8.1(L) 13.0 - 17.5 g/dL [facility] Hct 25.2(L) 38.9 - 50.3 % [facility] MCV 86.3 81.3 - 96.4 fL [facility] MCH 27.7 27.1 - 33.3 pg [facility] MCHC 32.1(L) 32.3 - 35.7 g/dL [facility] RDW CV 13.1 11.1 - 14.9 % [facility] RDW SD 41.5 35.7 - 48.1 fL [facility] Plt 218 150 - 400 K/cumm [facility] MPV 10.1 9.1 - 12.3 fL [facility] NRBC 0.0 0.0 - 0.2 % [facility] NRBC abs 0.00 0.00 - 0.01 K/cumm [facility] Blood specimen (specimen) 03/21/2017 10:32 PM CDT 03/21/2017 11:25 PM CDT us Darnell Tesfaye LAB BLOOD ORDERABLES Final Result [facility] [place] [address] * (ABNORMAL) Glucose POC (03/21/2017 8:30 PM CDT) Glucose, POC 323(H) 70 - 199 mg/dL [facility] Blood specimen (specimen) 03/21/2017 8:30 PM CDT 03/21/2017 8:30 PM CDT Eloise Coulter MD POINT OF CARE TEST ORDERABLES Final Result [facility] Department [place] [address] * (ABNORMAL) Glucose POC (03/21/2017 5:52 PM CDT) Glucose, POC 58(L) 70 - 199 mg/dL [facility] Blood specimen (specimen) 03/21/2017 5:52 PM CDT 03/21/2017 5:52 PM CDT us Eloise Coulter MD POINT OF CARE TEST ORDERABLES Final Result ALESSANDRA [facility] [place] [address] * Fluoro Guided Needle Placement (03/21/2017 3:36 PM CDT) Anatomical Region Laterality Modality Body N/A Radiographic Toma ging 03/21/2017 3:36 PM CDT Narrative 03/21/2017 3:36 PM CDT MALLORY CROSS M.D. MALISSA LEÓN M.D. FINAL REPORT The radiology attending physician has personally reviewed this study, and has reviewed and/or edited this written report and agrees with it. ACC# ??Date Time ??Exam [id number] Mar 21, 2017 10:36:00 [id number] Fluoro Gd for Ndl (MSK) [id number] Mar 21, 2017 10:36:00 [id number] Asp/Inj Lg Jnt ACC# ??Date Time ??Exam [id number] Mar 21, 2017 10:36:00 [id number] Fluoro Gd for Ndl (MSK) [id number] Mar 21, 2017 10:36:00 [id number] Asp/Inj Lg Jnt EXAMINATION: ?? Right glenohumeral joint aspiration under is guidance HISTORY: 46-year-old man with right shoulder pain, fever and chills being evaluated for right glenohumeral joint septic arthritis in the emergency department. ATTENDING PRESENCE: Dr. Cross, the attending radiologist, was present from the beginning to the end of the procedure. Dr. Ky Conte, radiology fellow, was also present from the beginning to the end of the procedure. SEDATION: The patient did not require conscious sedation for the procedure. TECHNIQUE: ??The risks, benefits and alternatives were discussed and informed consent was obtained. ??Prior to beginning the procedure, [place] Protocol was performed to confirm the patient? ? s identity and the planned procedure. ?? Sterile barriers used during the procedure included cap, mask, hand hygiene, sterile gloves, and sterile drape. ??Chloraprep was used for cutaneous antisepsis. The patient was placed supine on the fluoroscopy table. ??The aspiration site was localized under fluoroscopy. ?Local anesthesia was achieved with subcutaneous injection of 1% lidocaine 3 mL. ??An 18-gauge spinal needle was inserted into the right glenohumeral joint under fluoroscopic guidance from an anterior approach. ??Despite trying multiple sites, no fluid was obtained. The position of the needle tip was confirmed by the injection of 2 mL of a 2:1 mixture of Omnipaque-300 and 0.25% bupivacaine. The needle was removed, the skin was cleansed with hydrogen peroxide, and a bandage was placed. ESTIMATED BLOOD LOSS: Minimal CONDITION: Stable condition. There were no complications of the procedure. 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 The glenohumeral joint space is intact. After injection of contrast, contrast was seen in the right glenohumeral joint. ?? IMPRESSION: Aspiration of the right glenohumeral joint under fluoroscopic guidance. ?? Despite multiple attempts of different sites no fluid was obtained from the joint. ?? Requested By: ESTELITA BISHOP M.D. Dictated By: ?? MALISSA LEÓN M.D. ??on Mar ??2016 ??1:32P This document has been electronically signed by: MALLORY CROSS M.D. on Mar ??2016 ??6:21P [id number] Procedure Note Miscellaneous, Not In File / Provider, MD Zev - 03/21/2017 Dorys ALEMAN M.D. FINAL REPORT The radiology attending physician has personally reviewed this study, and has reviewed and/or edited this written report and agrees with it. ACC# Date Time Exam [id number] Mar 21, 2017 10:36:00 [id number] Fluoro Gd for Ndl (MSK) [id number] Mar 21, 2017 10:36:00 [id number] Asp/Inj Lg Jnt ACC# Date Time Exam [id number] Mar 21, 2017 10:36:00 [id number] Fluoro Gd for Ndl (EM) [id number] Mar 21, 2017 10:36:00 13598 Asp/Inj Lg Jnt EXAMINATION: Right glenohumeral joint aspiration under is guidance HISTORY: 46-year-old man with right shoulder pain, fever and chills being evaluated for right glenohumeral joint septic arthritis in the emergency department. ATTENDING PRESENCE: Dr. Cross, the attending radiologist, was present from the beginning to the end of the procedure. Dr. Ky Conte, radiology fellow, was also present from the beginning to the end of the procedure. SEDATION: The patient did not require conscious sedation for the procedure. TECHNIQUE: The risks, benefits and alternatives were discussed and informed consent was obtained. Prior to beginning the procedure, [place] Protocol was performed to confirm the patient? ? s identity and the planned procedure. Sterile barriers used during the procedure included cap, mask, hand hygiene, sterile gloves, and sterile drape. Chloraprep was used for cutaneous antisepsis. The patient was placed supine on the fluoroscopy table. The aspiration site was localized under fluoroscopy. Local anesthesia was achieved with subcutaneous injection of 1% lidocaine 3 mL. An 18-gauge spinal needle was inserted into the right glenohumeral joint under fluoroscopic guidance from an anterior approach. Despite trying multiple sites, no fluid was obtained. The position of the needle tip was confirmed by the injection of 2 mL of a 2:1 mixture of Omnipaque-300 and 0.25% bupivacaine. The needle was removed, the skin was cleansed with hydrogen peroxide, and a bandage was placed. ESTIMATED BLOOD LOSS: Minimal CONDITION: Stable condition. There were no complications of theprocedure. 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 The glenohumeral joint space is intact. After injection of contrast, contrast was seen in the right glenohumeral joint. IMPRESSION: Aspiration of the right glenohumeral joint under fluoroscopic guidance. Despite multiple attempts of different sites no fluid was obtained from the joint. Requested By: ESTELITA BISHOP M.D. Dictated By: MALISSA LEÓN M.D. on Mar 21 2017 1:32P This document has been electronically signed by: AMLLORY CROSS M.D. on Mar 21 2017 6:21P [id number] us Not In File Miscellaneous IMG FLUOROSCOPY PROCED URES Final Result * Fluoro Guided Needle Placement (03/21/2017 3:36 PM CDT) Anatomical Region Laterality Modality Body N/A Radiographic Toma ging 03/21/2017 3:36 PM CDT Narrative 03/21/2017 3:36 PM CDT MALLORY CROSS M.D. MALISSA LEÓN M.D. FINAL REPORT The radiology attending physician has personally reviewed this study, and has reviewed and/or edited this written report and agrees with it. ACC# ??Date Time ??Exam [id number] Mar 21, 2017 10:36:00 [id number] Fluoro Gd for Ndl (MSK) [id number] Mar 21, 2017 10:36:00 [id number] Asp/Inj Lg Jnt ACC# ??Date Time ??Exam [id number] Mar 21, 2017 10:36:00 [id number] Fluoro Gd for Ndl (MSK) [id number] Mar 21, 2017 10:36:00 [id number] Asp/Inj Lg Jnt EXAMINATION: ?? Right glenohumeral joint aspiration under is guidance HISTORY: 46-year-old man with right shoulder pain, fever and chills being evaluated for right glenohumeral joint septic arthritis in the emergency department. ATTENDING PRESENCE: Dr. Cross, the attending radiologist, was present from the beginning to the end of the procedure. Dr. Ky Conte, radiology fellow, was also present from the beginning to the end of the procedure. SEDATION: The patient did not require conscious sedation for the procedure. TECHNIQUE: ??The risks, benefits and alternatives were discussed and informed consent was obtained. ??Prior to beginning the procedure, [place] Protocol was performed to confirm the patient? ? s identity and the planned procedure. ?? Sterile barriers used during the procedure included cap, mask, hand hygiene, sterile gloves, and sterile drape. ??Chloraprep was used for cutaneous antisepsis. The patient was placed supine on the fluoroscopy table. ??The aspiration site was localized under fluoroscopy. ?Local anesthesia was achieved with subcutaneous injection of 1% lidocaine 3 mL. ??An 18-gauge spinal needle was inserted into the right glenohumeral joint under fluoroscopic guidance from an anterior approach. ??Despite trying multiple sites, no fluid was obtained. The position of the needle tip was confirmed by the injection of 2 mL of a 2:1 mixture of Omnipaque-300 and 0.25% bupivacaine. The needle was removed, the skin was cleansed with hydrogen peroxide, and a bandage was placed. ESTIMATED BLOOD LOSS: Minimal CONDITION: Stable condition. There were no complications of the procedure. 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 The glenohumeral joint space is intact. After injection of contrast, contrast was seen in the right glenohumeral joint. ?? IMPRESSION: Aspiration of the right glenohumeral joint under fluoroscopic guidance. ?? Despite multiple attempts of different sites no fluid was obtained from the joint. ?? Requested By: ESTELITA BISHOP M.D. Dictated By: ?? MALISSA LEÓN M.D. ??on Mar ??2016 ??1:32P This document has been electronically signed by: MALLORY CROSS M.D. on Mar ??2016 ??6:21P Procedure Note Miscellaneous, Not In File - 03/21/2017 Dorys ALEMAN M.D. FINAL REPORT The radiology attending physician has personally reviewed this study, and has reviewed and/or edited this written report and agrees with it. ACC# Date Time Exam [id number] Mar 21, 2017 10:36:00 [id number] Fluoro Gd for Ndl (MSK) [id number] Mar 21, 2017 10:36:00 [id number] Asp/Inj Lg Jnt ACC# Date Time Exam [id number] Mar 21, 2017 10:36:00 [id number] Fluoro Gd for Ndl (MSK) [id number] Mar 21, 2017 10:36:00 [id number] Asp/Inj Lg Jnt EXAMINATION: Right glenohumeral joint aspiration under is guidance HISTORY: 46-year-old man with right shoulder pain, fever and chills being evaluated for right glenohumeral joint septic arthritis in the emergency department. ATTENDING PRESENCE: Dr. Cross, the attending radiologist, was present from the beginning to the end of the procedure. Dr. Ky Conte, radiology fellow, was also present from the beginning to the end of the procedure. SEDATION: The patient did not require conscious sedation for the procedure. TECHNIQUE: The risks, benefits and alternatives were discussed and informed consent was obtained. Prior to beginning the procedure, [place] Protocol was performed to confirm the patient? ? s identity and the planned procedure. Sterile barriers used during the procedure included cap, mask, hand hygiene, sterile gloves, and sterile drape. Chloraprep was used for cutaneous antisepsis. The patient was placed supine on the fluoroscopy table. The aspiration site was localized under fluoroscopy. Local anesthesia was achieved with subcutaneous injection of 1% lidocaine 3 mL. An 18-gauge spinal needle was inserted into the right glenohumeral joint under fluoroscopic guidance from an anterior approach. Despite trying multiple sites, no fluid was obtained. The position of the needle tip was confirmed by the injection of 2 mL of a 2:1 mixture of Omnipaque-300 and 0.25% bupivacaine. The needle was removed, the skin was cleansed with hydrogen peroxide, and a bandage was placed. ESTIMATED BLOOD LOSS: Minimal CONDITION: Stable condition. There were no complications of theprocedure. 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 The glenohumeral joint space is intact. After injection of contrast, contrast was seen in the right glenohumeral joint. IMPRESSION: Aspiration of the right glenohumeral joint under fluoroscopic guidance. Despite multiple attempts of different sites no fluid was obtained from the joint. Requested By: ESTELITA BISHOP M.D. Dictated By: MALISSA LEÓN M.D. on Mar 21 2017 1:32P This document has been electronically signed by: MALLORY CROSS M.D. on Mar 21 2017 6:21P us Not In File Miscellaneous IMG FLUOROSCOPY PROCED URES Final Result * XR Shoulder 2+ Vw (03/21/2017 12:58 PM CDT) Anatomical Region Laterality Modality Shoulder N/A Radiographic Toma ging 03/21/2017 12:5 8 PM CDT Narrative 03/21/2017 12:58 PM CDT SWATI ROTIZ M.D. DONAVON WEBB M.D. FINAL REPORT The radiology attending physician has personally reviewed this study, and has reviewed and/or edited this written report and agrees with it. ACC# ??Date Time ??Exam [id number] Mar 21, 2017 07:58:00 [id number] Shoulder minimum 2 views R EXAMINATION: ?? Shoulder 2 views COMPARISON: 03/03/2012 FINDINGS: Interval development of distal osteolysis of the right clavicle which may be secondary to gout or less likely post-traumatic changes. Osteoarthritic changes of the acromioclavicular joint. No fracture or dislocation is present. Soft tissue appears normal. IMPRESSION: ?? Interval development of distal osteolysis of the right clavicle which may be secondary to gout or less likely post-traumatic changes. Osteoarthritic changes of the acromioclavicular joint. Further evaluation such as arthrocentesis may be helpful. Requested By: ESTELITA BISHOP M.D. Dictated By: ?? DONAVON WEBB M.D. ??on Mar ??2016 ??8:42A This document has been electronically signed by: SWATI ORTIZ M.D. on Mar ??2016 10:27A [id number] Procedure Note Miscellaneous, Not In File / Provider, MD Zev - 03/21/2017 SWATI ORTIZ M.D. DONAVON WEBB M.D. FINAL REPORT The radiology attending physician has personally reviewed this study, and has reviewed and/or edited this written report and agrees with it. ACC# Date Time Exam [id number] Mar 21, 2017 07:58:00 [id number] Shoulder minimum 2 views R EXAMINATION: Shoulder 2 views COMPARISON: 03/03/2012 FINDINGS: Interval development of distal osteolysis of the right clavicle which may be secondary to gout or less likely post-traumatic changes. Osteoarthritic changes of the acromioclavicular joint. No fracture or dislocation is present. Soft tissue appears normal. IMPRESSION: Interval development of distal osteolysis of the right clavicle which may be secondary to gout or less likely post-traumatic changes. Osteoarthritic changes of the acromioclavicular joint. Further evaluation such as arthrocentesis may be helpful. Requested By: ESTELITA BISHOP M.D. Dictated By: DONAVON WEBB M.D. on Mar 21 2017 8:42A This document has been electronically signed by: SWATI ORTIZ M.D. on Mar 21 2017 10:27A [id number] us Not In File Miscellaneous IMG XR PROCEDURES Ann Marie l Result * XR Chest Pa Lateral 2 Views (03/21/2017 12:58 PM CDT) Anatomical Region Laterality Modality Body, Chest N/A Radiographic Toma ging 03/21/2017 12:5 8 PM CDT Narrative 03/21/2017 12:58 PM CDT Dorys VILLANUEVA M.D. FINAL REPORT The radiology attending physician has personally reviewed this study, and has reviewed and/or edited this written report and agrees with it. ACC# ??Date Time ??Exam [id number] Mar 21, 2017 07:58:00 [id number] Chest 2 views Frontl ??and ??Lat ACC# ??Date Time ??Exam [id number] Mar 21, 2017 07:58:00 [id number] Chest 2 views Frontl ??and ??Lat EXAMINATION: ?? Chest 2 views frontal and lateral ?? IMPRESSION: ?? Distal osteolysis of the right clavicle is present which may be secondary to gout or less likely post-traumatic changes.There is no focal consolidation, pleural effusion, pulmonary edema, or pneumothorax. Cardiac size is within normal limits. ?? Requested By: DANIEL MEJIA M.D. Dictated By: ?? DONAVON WEBB M.D. ??on Mar ??2016 ??8:36A This document has been electronically signed by: SWATI ORTIZ M.D. on Mar?2016 10:27A [id number] Procedure Note Miscellaneous, Not In File / Provider, MD Zev - 03/21/2017 SWATI ORTIZ M.D. DONAVON WEBB M.D. FINAL REPORT The radiology attending physician has personally reviewed this study, and has reviewed and/or edited this written report and agrees with it. ACC# Date Time Exam [id number] Mar 21, 2017 07:58:00 [id number] Chest 2 views Frontl and Lat ACC# Date Time Exam [id number] Mar 21, 2017 07:58:00 [id number] Chest 2 views Frontl and Lat EXAMINATION: Chest 2 views frontal and lateral IMPRESSION: Distal osteolysis of the right clavicle is present which may be secondary to gout or less likely post-traumatic changes.There is no focal consolidation, pleural effusion, pulmonary edema, or pneumothorax. Cardiac size is within normal limits. Requested By: DANIEL MEJIA M.D. Dictated By: DONAVON WEBB M.D. on Mar 21 2017 8:36A This document has been electronically signed by: SWATI ORTIZ M.D. on Mar 21 2017 10:27A [id number] us Not In File Miscellaneous IMG XR PROCEDURES Ann Marie l Result * N. gonorrhoeae/C. trachomatis amplification test (03/21/2017 11:53 AM CDT) Report Final Report: Negative for: ??Chlamydia trachomatis rRNA Negative for: ??Neisseria gonorrhoeae rRNA [facility] Urine 03/21/2017 11:5 3 AM CDT 03/21/2017 12:07 PM CDT Narrative [facility] - 03/21/2017 12:07 PM CDT Testing performed by the Gen-Probe [employer] APTIMA Combo 2 Assay. This nucleic acid amplification test (NAAT) detects ribosomal RNA (rRNA) from Chlamydia trachomatis and Neisseria gonorrhoeae using target capture,and Court Officer-Mediated Amplification (TMA). This test is approved by the [place] Food and Drug Administration for endocervical, vaginal, and male urethral swab specimens, in addition to male and female urine specimens. The performance characteristics for these specimen types have been verified by the [facility].The performance characteristics of this assay for pharyngeal and rectal specimens collected from cervical swab collection devices have been validated and verified by the [facility]. Verification studies support a lack of cross reactivity with other Neisseria species considered normal oropharyngeal bacterial stone. Rectal swab specimens containing excess stool may be inhibitory and result in false negatives for Chlamydia trachomatis or Neisseria gonorrhoeae. The performance characteristics of this test have not been evaluated in women or individuals less than 16 years of age. us Estelita Bishop MD LAB MICROBIOLOGY - GENERAL ORDERABLES Final Result Performing Organization Address City/[facility]/ZIP Co de Phone Number [facility] [place] [address] * B Check Sample (03/21/2017 8:24 AM CDT) ABO Rh A Positive [facility] HCLL OTHER 03/21/2017 8:24 AM CDT 03/21/2017 9:32 AM CDT us Notinfile Unknown LAB BLOOD ORDERABLES Final Res ult Performing Organization Address [facility] Co de Phone Number [facility] [place] [employer] [place] [address] * Lactate POC (03/21/2017 8:24 AM CDT) Pathologist [facility] Lactate POC i-STAT 1.0 0.7 - 2.2 mmol/L [facility] Blood specimen (specimen) 03/21/2017 8:24 AM CDT 03/21/2017 8:24 AM CDT us Notinfile Unknown LAB BLOOD ORDERABLES Final Res ult Performing Organization Address City/[facility] Co de Phone Number [facility] Department [place] [address] * Blood culture (03/21/2017 8:11 AM CDT) Report Final Report: No growth [facility] Blood specimen (specimen) (Hand, left) 03/21/2017 8:11 AM CDT 03/21/2017 9:50 AM CDT Narrative [facility] - 03/22/2017 6:41 AM CDT Blood cultures are incubated for five days on a continuously monitored blood culture system. ??The first report of a negative culture is issued within 24 hours of receipt of the specimen in the laboratory. ??Positive culture results are reported as soon as they are detected. ??For blood cultures with gram-positive cocci, a rapid molecular test for organism identification may be performed using the [employer] Nanosphere Gram Positive Blood Culture Assay. ??The Nanosphere assay detects microbial DNA in positive blood culture broth via hybridization of target DNA to capture oligonucleotides on a microarray. ??This assay has been cleared by the [place] Food and Drug Administration and its performance characteristics have been verified by the [facility]. Current Interpretive Data was last revised on 2014. Estelita Bishop MD LAB MICROBIOLOGY - GENERAL ORDERABLES Final Result [facility] [place] [address] * Blood culture (03/21/2017 8:11 AM CDT) Report Final Report: No growth [facility] Blood specimen (specimen) (Antecubital, left) 03/21/2017 8:11 AM CDT 03/21/2017 9:51 AM CDT Narrative [facility] - 03/22/2017 6:41 AM CDT Blood cultures are incubated for five days on a continuously monitored blood culture system. ??The first report of a negative culture is issued within 24 hours of receipt of the specimen in the laboratory. ??Positive culture results are reported as soon as they are detected. ??For blood cultures with gram-positive cocci, a rapid molecular test for organism identification may be performed using the [employer] Nanosphere Gram Positive Blood Culture Assay. ??The Nanosphere assay detects microbial DNA in positive blood culture broth via hybridization of target DNA to capture oligonucleotides on a microarray. ??This assay has been cleared by the [place] Food and Drug Administration and its performance characteristics have been verified by the [facility]. Current Interpretive Data was last revised on 2014. us Estelita Bishop MD LAB MICROBIOLOGY - GENERAL ORDERABLES Final Result Performing Organization Address [facility] Co de Phone Number [facility] [place] [address] * Uric acid (03/21/2017 8:11 AM CDT) Uric acid 8.0 3.0 - 8.0 mg/dL [facility] Blood specimen (specimen) 03/21/2017 8:11 AM CDT 03/21/2017 8:22 AM CDT us Estelita Bishop MD LAB BLOOD ORDERABL ES Edited Result - Final Performing Organization Address [facility] de Phone Number [facility] [place] [address] * (ABNORMAL) CRP (acute phase) (03/21/2017 8:11 AM CDT) CRP 107.2(H) 0.0 - 9.9 mg/L [facility] Blood specimen (specimen) 03/21/2017 8:11 AM CDT 03/21/2017 8:22 AM CDT us Esteliat Bishop MD LAB BLOOD ORDERABL ES Final Result Performing Organization Address [facility] de Phone Number [facility] Department [place] [address] * Hepatic function panel (03/21/2017 8:11 AM CDT) AST 34 10 - 50 Units/L [facility] ALT 45 7 - 55 Units/L [facility] Alk phos 114 40 - 130 Units/L [facility] Bilirubin, total 0.4 0.1 - 1.2 mg/dL [facility] Bilirubin, direct <0.2 0.1 - 0.3 mg/dL [facility] Protein, pl 7.7 6.5 - 8.5 g/dL [facility] Albumin 3.8 3.5 - 5.0 g/dL [facility] Blood specimen (specimen) 03/21/2017 8:11 AM CDT 03/21/2017 8:22 AM CDT Result [facility] Estelita Bishop MD LAB BLOOD ORDERABL ES Edited Result - Final Performing Organization Address City/[facility] Co de Phone Number [facility] [employer] [place] [address] * aPTT (03/21/2017 8:11 AM CDT) Pathologist [facility] [place] aPTT 32.5 25.0 - 37.0 sec [facility] Comment: Interpretive Data Therapeutic heparin range:60.0 - 94.0 sec based on correlation with therapeutic heparin activity range of 0.3 -0.7 Units/mL. Current interpretive data was last revised on 2011. Blood specimen (specimen) 03/21/2017 8:11 AM CDT 03/21/2017 8:58 AM CDT Estelita Bishop MD LAB BLOOD ORDERABL ES Final Result Performing Organization Address City/[facility]/ZIP Co de Phone Number [facility] [employer] [place] [address] * (ABNORMAL) Protime-INR (03/21/2017 8:11 AM CDT) Pathologist [facility] PT 16.2(H) 9.2 - 14.0 sec [facility] INR 1.41(H) 0.81 - 1.22 [facility] Comment: Interpretive Data Inpatient therapeutic ranges* Atrial fibrillation ?2.0-3.0 INR Venous thrombo-embolism ?2.0-3.0 INR Bioprosthetic heart valve ?* Mechanical heart valve, bileaflet or tilting disk,aortic position ? 2.0-3.0 INR All other,or bileaflet or tilting disk, in mitral position ? 2.5-3.5 INR *See the pharmacy resource directory (PHRED) for an updated copy of the Tool Book at [email or web address] Current Interpretive Data was last revised 2011. Blood specimen (specimen) 03/21/2017 8:11 AM CDT 03/21/2017 8:58 AM CDT Estelita Bishop MD LAB BLOOD ORDERABL ES Final Result [facility] Department of [employer] [place] [address] * Type and screen (03/21/2017 8:11 AM CDT) Maribel, indirect Negative [facility] ABO Rh A Positive [facility] Blood specimen (specimen) 03/21/2017 8:11 AM CDT 03/21/2017 8:23 AM CDT Estelita Bishop MD LAB BLOOD BANK ERNESTO T ORDERABLES Edited Result - Final [facility] Department of [employer] [place] [address] * (ABNORMAL) Erythrocyte sedimentation rate (03/21/2017 8:11 AM CDT) Erythrocyte sedimentation rate 102(H) 0 - 12 mm/H [facility] Blood specimen (specimen) 03/21/2017 8:11 AM CDT 03/21/2017 8:22 AM CDT Estelita Bishop MD LAB BLOOD ORDERABL ES Final Result Performing Organization Address [facility] de Phone Number [facility] [place] [address] * (ABNORMAL) Urinalysis, microscopic only (03/21/2017 7:15 AM CDT) RBC, ur 1 0 - 3 /HPF [facility] WBC, ur 0 0 - 5 /HPF [facility] Bacteria, ur Negative Trace [facility] Epithelial cells, renal, ur 0 0 - 0 /HPF [facility] Mucus, ur Small /HPF [facility] Hyaline casts, ur >2(H) 0 - 0 /LPF [facility] Urine 03/21/2017 7:15 AM CDT 03/21/2017 7:46 AM CDT Estelita Bishop MD LAB URINE ORDERABL ES Final Result Performing Organization Address [facility] de Phone Number [facility] [place] [address] * (ABNORMAL) Urinalysis reflex to microscopic (03/21/2017 7:15 AM CDT) Color, ur Colorless Yellow [facility] Clarity, ur Clear Clear [facility] Specific gravity, ur 1.005 1.003 - 1.030 [facility] pH, ur 5.0 5.0 - 8.0 [facility] Albumin, ur Negative Trace [facility] Glucose, ur ql Negative Negative [facility] Ketones, ur Negative Negative [facility] Bilirubin, ur Negative Negative [facility] Blood, ur 1+(A) Negative [facility] Urobilinogen, ur <2.0 <2.0 mg/dL [facility] Nitrites, ur Negative Negative [facility] Leukocyte esterase, ur Negative Negative [facility] Urine 03/21/2017 7:15 AM CDT 03/21/2017 7:46 AM CDT us Estelita Bishop MD LAB URINE ORDERABL ES Final Result Performing Organization Address [facility] Co de Phone Number [facility] Department of [employer] [place] [address] * (ABNORMAL) Basic metabolic panel (03/21/2017 7:15 AM CDT) Pathologist [facility] Sodium 140 135 - 145 mmol/L [facility] Potassium, pl 5.9(H) 3.3 - 4.9 mmol/L [facility] Chloride 108 97 - 110 mmol/L [facility] CO2 21(L) 22 - 32 mmol/L [facility] BUN 50(H) 8 - 25 mg/dL [facility] Glucose 137 70 - 199 mg/dL [facility] Creatinine 1.99(H) 0.80 - 1.30 mg/dL [facility] Calcium 9.2 8.5 - 10.3 mg/dL [facility] Anion gap 11 2 - 15 mmol/L [facility] Blood specimen (specimen) 03/21/2017 7:15 AM CDT 03/21/2017 7:26 AM CDT us Daniel Mejia MD LAB BLOOD ORDERABLES Final Res ult Performing Organization Address [facility] Co de Phone Number [facility] Department of [employer] [place] [address] * (ABNORMAL) B-type natriuretic peptide (03/21/2017 7:15 AM CDT) Pathologist [facility] B-Type Natriuretic Peptide (BNP) 113(H) 0 - 100 pg/mL [facility] Blood specimen (specimen) 03/21/2017 7:15 AM CDT 03/21/2017 7:26 AM CDT us Daniel Mejia MD LAB BLOOD ORDERABLES Final Res ult Performing Organization Address [facility] Co de Phone Number [facility] [place] [address] * Troponin I (03/21/2017 7:15 AM CDT) Pathologist [facility] Troponin I 0.03 0.00 - 0.03 ng/mL [facility] Comment: Interpretive Data Serial determinations are recommended for the diagnosis of myocardial infarction (Third [place] Definition of Myocardial Infarction. ??J Am Elena Cardiol 2012;60:1581-98). Current interpretive data was last revised on 13. Blood specimen (specimen) 03/21/2017 7:15 AM CDT 03/21/2017 7:26 AM CDT us Daniel Mejia MD LAB BLOOD ORDERABLES Edited Re sult - Final Performing Organization Address [facility] Co de Phone Number [place] [address] * (ABNORMAL) Differential, auto (03/21/2017 7:15 AM CDT) Pathologist [facility] Neutrophil pct 74.9 % [facility] Imm gran pct 0.5 % [facility] Lymphocyte pct 11.9 % [facility] Monocyte pct 11.8 % [facility] Eosinophil pct 0.8 % [facility] Basophil pct 0.1 % [facility] Neutrophil abs 6.21 1.70 - 6.50 K/cumm [facility] Imm gran abs 0.04 0.00 - 0.10 K/cumm [facility] Lymphocyte abs 0.99 0.80 - 3.30 K/cumm [facility] Monocyte abs 0.98(H) 0.20 - 0.80 K/cumm [facility] Eosinophil abs 0.07 0.00 - 0.50 K/cumm [facility] Basophil abs 0.01 0.00 - 0.10 K/cumm [facility] Blood specimen (specimen) 03/21/2017 7:15 AM CDT 03/21/2017 7:26 AM CDT us Daniel Mejia MD LAB BLOOD ORDERABLES Final Res ult Performing Organization Address City/[facility] Co de Phone Number [facility] [place] [address] * (ABNORMAL) CBC with auto differential (03/21/2017 7:15 AM CDT) WBC 8.30 3.80 - 9.90 K/cumm [facility] RBC 3.24(L) 4.30 - 5.80 M/cumm [facility] Hgb 9.1(L) 13.0 - 17.5 g/dL [facility] Hct 28.2(L) 38.9 - 50.3 % [facility] MCV 87.0 81.3 - 96.4 fL [facility] MCH 28.1 27.1 - 33.3 pg [facility] MCHC 32.3 32.3 - 35.7 g/dL [facility] RDW CV 13.2 11.1 - 14.9 % [facility] RDW SD 41.9 35.7 - 48.1 fL [facility] Plt 232 150 - 400 K/cumm [facility] MPV 9.5 9.1 - 12.3 fL [facility] NRBC 0.0 0.0 - 0.2 % [facility] NRBC abs 0.00 0.00 - 0.01 K/cumm [facility] Blood specimen (specimen) 03/21/2017 7:15 AM CDT 03/21/2017 7:26 AM CDT us Daniel Mejia MD LAB BLOOD ORDERABLES Final Res ult Performing Organization Address [facility]/State/ZIP Co de Phone Number [facility] [place] [address] * Glucose POC (03/21/2017 6:50 AM CDT) Glucose, POC 141 70 - 199 mg/dL [facility] Blood specimen (specimen) 03/21/2017 6:50 AM CDT 03/21/2017 6:50 AM CDT us Notinfile Unknown POINT OF CARE TEST ORDERABLES Final Result [facility] [place] [address] * TRANSTHORACIC ECHO (TTE) COMPLETE W DOPPLER/CF WO CONTRAST (03/21/2017) Anatomical Region Laterality Modality Ultrasound us Provider Scanning CV ECHO PROCEDURES Final Resul t * ELECTROCARDIOGRAPHY (ECG) (03/21/2017) us Provider Scanning ECG ORDERABLES Edited Result - Final documented in this encounter Visit Diagnoses Not on filedocumented in this encounter Care Teams Organisation And Methods Analyst Relationship Specialty Start Date End Date Jhonatan Bellamy MD [address] [place] [address] PCP - General 03/25/15 04/16/18 documented as of this encounter
--- OUTSIDE RECORDS SUMMARY | 2024-08-18 13:15 | XMS_ITS | Encounter Summary ---
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) drug therapy Social History Tobacco Use Types Packs/Day Years Used Date Smoking Tobacco: Never Smokeless Tobacco: Former Alcohol Use Standard Drinks/Week Comments No 0 (1 standard drink = 0.6 oz pur e alcohol) Sex and Gender Information Value Date Recorded Sex Assigned at Not on file Legal Sex Male 3:42 AM SERVICE OFFICER Gender Identity Not on file Sexual Orientation Not on file documented as of this encounter Last Filed Vital Signs Vital Sign Reading Time Taken Comments Blood Pressure 131/67 07/19/2017 6:31 PM SERVICE OFFICER Pulse 73 07/19/2017 6:31 PM SERVICE OFFICER Temperature 36.6 ??C (97.9 ??F) 07/19/2017 6:31 PM CS T Respiratory Rate - - Oxygen Saturation 97% 07/19/2017 6:31 PM SERVICE OFFICER Inhaled Oxygen Concentration - - Weight 112.9 kg (249 lb) 07/19/2017 6:31 PM SERVICE OFFICER Height - - Body Mass Index 35.73 07/19/2017 10:34 AM SERVICE OFFICER documented in this encounter Medications at Time of Discharge aspirin 81 mg enteric coated tabletIndications: Myocardial Reinfarction Prevention Take 1 tablet (81 mg total) by mouth daily 11/07/2013 nitroglycerin (NITROSTAT) 0.4 mg SL tabletIndications: Coronary artery disease involving makah coronary artery of makah heart, angina presence unspecified Place 1 tablet (0.4 mg total) under the tongue every 5 (five) minutes as needed for chest pain. Up to 3 doses 100 tablet 3 05/04/2017 8 apixaban (ELIQUIS) 5 mg tablet Take 1 tablet (5 mg total) by mouth 2 (two) times a day. 180 tablet 05/19/2017 8 aspirin 81 mg tablet Take 81 mg by mouth daily. 1 carvedilol (COREG) 25 mg tablet Take 25 mg by mouth 2 (two) times a day with meals. 8 cholecalciferol (VITAMIN D-3) 2,000 unit capsule Take 2,000 Units by mouth daily. 1 cloNIDine (CATAPRES) 0.1 mg tablet Take 0.1 mg by mouth 2 (two) times a day. 1 clopidogrel (PLAVIX) 75 mg tablet Take 1 tablet (75 mg total) by mouth daily. 90 tablet 1 05/22/2017 8 colchicine (COLCRYS) 0.6 mg tabletIndications: as needed for pain Take 0.6 mg by mouth 2 (two) times a day. 1 doxycycline (VIBRAMYCIN) 100 mg capsule Take 100 mg by mouth 2 (two) times a day. 1 febuxostat (ULORIC) 40 mg tablet Take 40 mg by mouth daily. 1 furosemide (LASIX) 40 mg tablet Take 40 mg by mouth 2 (two) times a day. Take 2 tabs in the am and one tab in the pm 8 hydrALAZINE (APRESOLINE) 100 mg tablet TAKE 1 TABLET BY MOUTH EVERY 8 HOURS 90 tablet 5 05/23/2017 8 insulin glargine (LANTUS) 100 unit/mL injection Inject under the skin nightly. 1 insulin lispro (HumaLOG) 100 unit/mL injection Inject under the skin 3 (three) times a day before meals. 1 isosorbide mononitrate ER (IMDUR) 30 mg 24 hr tablet Take 30 mg by mouth daily. 8 isosorbide mononitrate ER (IMDUR) 60 mg 24 hr tablet Take 1 tablet (60 mg total) by mouth every morning. 30 tablet 5 06/12/2017 8 raNITIdine (ZANTAC) 300 mg tablet Take 300 mg by mouth 2 (two) times a day. 1 simvastatin (ZOCOR) 40 mg tablet Take 40 mg by mouth nightly. 1 terazosin (HYTRIN) 2 mg capsule Take 1 capsule (2 mg total) by mouth nightly. 30 capsule 5 06/13/2017 8 documented as of this encounter Plan of Treatment Not on file documented as of this encounter Visit Diagnoses Diagnosis Type 2 diabetes mellitus with hypoglycemia without coma (HCC) Heart failure (HCC) Unspecified heart failure Other fdc (current) drug therapy documented in this encounter Care Teams Utility Worker [employer] Relationship Specialty Start Date End Date Jhonatan Bellamy MD [address] [place] [address] PCP - General 03/25/15 04/16/18 documented as of this encounter
--- OUTSIDE RECORDS SUMMARY | 2024-08-18 13:15 | XMS_ITS | Encounter Summary ---
Author Organization [facility] Medical Group Address [address] [address] Care Team Providers Care Lead Neurodiagnostic Technologist Name Role Phone Jhonatan Bellamy MD Primary Care Provider [phone]- [phone] Encounter Details Date Type Department Care Team (Late st Contact Info) Description 06/12/2017 Telephone [facility] [address] [id number] Abelardo Petit MD [address] [facility] [address] [place] [address] Social History Tobacco Use Types Packs/Day Years Used Date Smoking Tobacco: Never Smokeless Tobacco: Former Alcohol Use Standard Drinks/Week Comments No 0 (1 standard drink = 0.6 oz pur e alcohol) Sex and Gender Information Value Date Recorded Sex Assigned at Not on file 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 60 capsule 5 06/12/2017 7 isosorbide mononitrate ER (IMDUR) 60 mg 24 hr tablet Take 1 tablet (60 mg total) by mouth every morning. 30 tablet 5 06/12/2017 8 documented in this encounter Miscellaneous Notes * Telephone Encounter - Chula Dodson MA - 06/12/2017 8:48 AM CDT Medications sent to pharmacy, patient aware. documented in this encounter Plan of Treatment Not on file documented as of this encounter Visit Diagnoses Not on filedocumented in this encounter Discontinued Medications Medication Sig Discontinue Reason Start Date End Da te isosorbide mononitrate ER (IMDUR) 60 mg 24 hr tablet TAKE 1 TABLET BY MOUTH EVERY MORNING Reorder 05/23/2017 06/12/2017 terazosin (HYTRIN) 2 mg capsule TAKE 1 CAPSULE BY MOUTH EVERY 12 HOURS Reorder 06/09/2017 06/12/2017 documented as of this encounter Care Teams Lead Neurodiagnostic Technologist Relationship Specialty Start Date End Date Jhonatan Bellamy MD [address] [place] [address] PCP - General 03/25/15 04/16/18 documented as of this encounter
--- OUTSIDE RECORDS SUMMARY | 2024-08-18 13:15 | XMS_ITS | Encounter Summary ---
Author Organization [facility] Medical Group Address [address] [address] Care Team Providers Care Maxillofacial Surgeon Name Role Phone Jhonatan Bellamy MD Primary Care Provider [phone]- [phone] Encounter Details Date Type Department Care Team (Late st Contact Info) Description 08/03/2017 Telephone [facility] [address] [id number] Abelardo Petit MD [address] [facility] [address] [address] Social History Tobacco Use Types Packs/Day Years Used Date Smoking Tobacco: Never Smokeless Tobacco: Former Alcohol Use Standard Drinks/Week Comments No 0 (1 standard drink = 0.6 oz pur e alcohol) Sex and Gender Information Value Date Recorded Sex Assigned at Not on file 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 LIFE ENFORCEMENT MAJOR documented in this encounter Plan of Treatment Not on file documented as of this encounter Visit Diagnoses Not on filedocumented in this encounter Care Teams Maxillofacial Surgeon Relationship Specialty Start Date End Date Jhonatan Bellamy MD [address] [place] [address] PCP - General 03/25/15 04/16/18 documented as of this encounter
--- OUTSIDE RECORDS SUMMARY | 2024-08-18 13:15 | XMS_ITS | Encounter Summary ---
Author Organization [facility] Facility Care Team Providers Care Extrusion Technician Name Role Phone Unavailable Primary Care Provider Unavailabl e Encounter Details Date Type Department Care Team (Late st Contact Info) Description 11/20/2014 9:06 PM CDT - 11/21/2014 7:54 AM CDT Hospital Encounter [facility] Abelardo Garcia MD [address] [facility] [address] [place] [address] Infective arthritis, hand (HCC); Type 2 or unspecified type diabetes mellitus; Hypertensive kidney disease with chronic kidney disease, stage 1-4; Chronic kidney disease; Encounter for long-term (current) use of other medications Social History Tobacco Use Types Packs/Day Years Used Date Smoking Tobacco: Never Assessed Sex and Gender Information Value Date Recorded Sex Assigned at Not on file 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 Gender Identity Not on file Sexual Orientation Not on file documented as of this encounter Medications at Time of Discharge aspirin 81 mg enteric coated tabletIndications:M yocardial Reinfarction Prevention Take 1 tablet (81 mg total) by mouth daily 11/07/2013 documented as of this encounter Plan of Treatment Not on file documented as of this encounter Procedures Procedure Name Priority Date/Time Associated Diagnosis Comments XR ELBOW 3+ VW Routine 06/04/2016 2:19 PM CDT DISCHARGE LABORATORY CUMULATIVE REPORT 06/04/2016 SERUM C-REACTIVE PROTEIN Routine 11/21/2014 3:03 AM CDT PLASMA BASIC METABOLIC PANEL Routine 11/21/2014 3:03 AM CDT BLOOD ERYTHROCYTE SEDIMENTATION RATE (ESR) Routine 11/21/2014 3:03 AM CDT BLOOD CELL COUNT (CBC) Routine 5 3:03 AM CDT DISCHARGE LABORATORY CUMULATIVE REPORT Routine 11/21/2014 12:00 AM CDT BLOOD BETA-HYDROXYBUTYRATE Routine 11/20/2014 9:18 PM CDT BLOOD GLUCOSE, POC Routine 11/20/2014 9: 17 PM CDT documented in this encounter Results * XR Elbow 3+ Vw (06/04/2016 2:19 PM CDT) Anatomical Region Laterality Modality N/A Radiographic Toma ging 06/04/2016 2:19 PM CDT Narrative 06/04/2016 4:27 PM CDT TONYA MILLER M.D. CASSIDY BARRAGAN M.D. FINAL REPORT The radiology attending physician has personally reviewed this study, and has reviewed and/or edited this written report and agrees with it. ACC# ??Date Time ??Exam [id number] Jun 04, 2016 14:19:00 [id number] Elbow minimum 3 views L EXAMINATION: ?Left elbow minimum 3 views HISTORY: ??Left elbow pain and swelling FINDINGS: ?? Three views of the left elbow are submitted on 4 exposures without prior studies available for comparison. Alignment is normal. There is no acute fracture. There is mild degenerative disease of the elbow joint. There is diffuse soft tissue swelling over the olecranon. IMPRESSION: ?? No acute fracture of the left elbow. Diffuse soft tissue swelling over the olecranon may represent olecranon bursitis. Requested By: MIRANDA BARILLAS WILDERNESS GUIDE Dictated By: ?? CASSIDY BARRAGAN M.D. ??on Jun 04 2016 ??4:09P This document has been electronically signed by: TONYA MILLER M.D. on Jun 04 2016 ??4:27P [id number] Procedure Note Provider, MD Zev - 12/27/2016 TONYA MILLER M.D. CASSIDY BARRAGAN M.D. FINAL REPORT The radiology attending physician has personally reviewed this study, and has reviewed and/or edited this written report and agrees with it. ACC# Date Time Exam [id number] Jun 04, 2016 14:19:00 [id number] Elbow minimum 3 views L EXAMINATION: Left elbow minimum 3 views HISTORY: Left elbow pain and swelling FINDINGS: Three views of the left elbow are submitted on 4 exposures without prior studies available for comparison. Alignment is normal. There is no acute fracture. There is mild degenerative disease of the elbow joint. There is diffuse soft tissue swelling over the olecranon. IMPRESSION: No acute fracture of the left elbow. Diffuse soft tissue swelling over the olecranon may represent olecranon bursitis. Requested By: MIRANDA BARILLAS WILDERNESS GUIDE Dictated By: CASSIDY BARRAGAN M.D. on Jun 04 2016 4:09P This document has been electronically signed by: TONYA MILLER M.D. on Jun 04 2016 4:27P [id number] Historical Provider IMG XR PROCEDURES Final R esult * DISCHARGE LABORATORY CUMULATIVE REPORT (06/04/2016) Narrative 06/04/2016 Ordered by an unspecified provider. Historical Provider LAB BLOOD ORDERABLES Ann Marie l Result * Serum C-reactive protein (11/21/2014 3:03 AM CDT) C-RP 9.1 0.0 - 9.9 mg/L HISTORICAL RESULTS Serum 11/21/2014 3:03 AM CDT Kerry Chang MD LAB BLOOD ORDERABLES Final Result Performing Organization Address [facility] de Phone Number HISTORICAL RESULTS * (ABNORMAL) Plasma basic metabolic panel (11/21/2014 3:03 AM CDT) Pathologist [facility] Sodium 137 135 - 145 mmol/L HISTORICAL RESULTS K, pl 4.1 3.3 - 4.9 mmol/L HISTORICAL RESULTS Chloride 102 97 - 110 mmol/L HISTORICAL RESULTS CO2 23 22 - 32 mmol/L HISTORICAL RESULTS A. gap 12 0 - 16 mmol/L HISTORICAL RESULTS Glucose 225(H) 70 - 199 mg/dl HISTORICAL RESULTS BUN 51(H) 8 - 25 mg/dl HISTORICAL RESULTS Creatinine 1.89(H) 0.70 - 1.30 mg/dl HISTORICAL RESULTS Calcium 9.1 8.6 - 10.3 mg/dl HISTORICAL RESULTS Plasma 11/21/2014 3:03 AM CDT Kerry Chang MD LAB BLOOD ORDERABLES Final Result Performing Organization Address [facility] de Phone Number HISTORICAL RESULTS * (ABNORMAL) Blood cell count (CBC) (11/21/2014 3:03 AM CDT) Pathologist [facility] WBC 7.1 3.8 - 9.8 K/cumm HISTORICAL RESULTS RBC 3.67(L) 4.50 - 5.70 M/cumm HISTORICAL RESULTS Hgb 10.7(L) 13.8 - 17.2 g/dl HISTORICAL RESULTS Hct 30.9(L) 40.7 - 50.3 % HISTORICAL RESULTS MCV 84.2 80.0 - 97.6 fl HISTORICAL RESULTS MCH 29.2 26.7 - 33.7 pg HISTORICAL RESULTS MCHC 34.7 32.7 - 35.5 g/dl HISTORICAL RESULTS Rdw 12.8 11.8 - 14.6 % HISTORICAL RESULTS Platelets 261 140 - 440 K/cumm HISTORICAL RESULTS MPV 7.6 6.8 - 10.4 fl HISTORICAL RESULTS Neutrophils, abs 3.1 1.8 - 6.6 K/cumm HISTORICAL RESULTS Lymphocytes, abs 2.8 1.2 - 3.3 K/cumm HISTORICAL RESULTS Monocytes, absolute 0.7 0.2 - 1.2 K/cumm HISTORICAL RESULTS Eosinophils, abs 0.5 0.0 - 0.5 K/cumm HISTORICAL RESULTS Basophils, abs 0.1 0.0 - 0.2 K/cumm HISTORICAL RESULTS Neutrophils 43.7 38.7 - 74.5 % HISTORICAL RESULTS Lymphocytes 39.2 20.0 - 54.3 % HISTORICAL RESULTS Monos 9.7 4.3 - 13.5 % HISTORICAL RESULTS Eosinophils 6.3(H) 0.0 - 6.0 % HISTORICAL RESULTS Basophils 1.1 0.0 - 3.0 % HISTORICAL RESULTS Blood specimen (specimen) 11/21/2014 3:03 AM CDT us Kerry Chang MD LAB BLOOD ORDERABLES Final Result Performing Organization Address [facility] Co de Phone Number HISTORICAL RESULTS * (ABNORMAL) Blood erythrocyte sedimentation rate (ESR) (11/21/2014 3:03 AM CDT) Erythrocyte sedimentation rate 72.0(H) 0.0 - 12.0 mm/hr HISTORICAL RESULTS Blood specimen (specimen) 11/21/2014 3:03 AM CDT us Kerry Chang MD LAB BLOOD ORDERABLES Final Result Performing Organization Address [facility] Co de Phone Number HISTORICAL RESULTS * Discharge Laboratory Cumulative Report (11/21/2014 12:00 AM CDT) 11/21/2014 Narrative HISTORICAL RESULTS - 11/21/2014 3:20 PM CDT ?[facility] ?Department of Laboratories ? [address] [facility] ? [place] [address] Patient Name: ??JUVENAL GARVIN [facility] Rec Number: [id number] Fin Number: ?[id number] Date: ?1970 Sex/Age: ? Male 44 years Admit Date: ?11/20/2014 Discharge Date: 11/21/2014 Doctor: ?Abelardo Garcia Facility: ?[facility] Location: ?[facility]-21 Chart Printed: 11/21/2014 15:20 ?? * Abnormal ?? C Critical ?? f Footnote ?? ^ Corrected ?? L Low ?? H High ? i Interp Data ?? @ Reference Lab ?Chart Type:Cumulative ? SELECTED ELECTROLYTES ?Test: Sodium ? Plasma Potassium ??Chloride ? Reference: [135-145] ??[3.3-4.9] ? [97-110] ? Units: mmol/L ? mmol/L ?mmol/L 11/21/2014 ?? 03:03:00 ?? 137 ?4.1 ? 102 ?Test: Total CO2 ??Anion Gap ? Reference: [22-32] ?[0-16] ? Units: mmol/L ? mmol/L 11/21/2014 ?? 03:03:00 ?? 23 ? 12 ? STANDARD BLOOD CHEMISTRY ?Test: BUN ? Creatinine ?? Glucose ?? Total Calcium ? Reference: [8-25] ??[0.70-1.30] ??[70-199] ??[8.6-10.3] ? Units: mg/dL ?? mg/dL ?mg/dL ? mg/dL 11/21/2014 ?? 03:03:00 ?? 51 ??H ?? 1.89 ??H ?225 ??H ?9.1 ? COMPLETE BLOOD COUNT ?Test: WBC ?RBC ?Hgb ? Reference: [3.8-9.8] ??[4.50-5.70] ??[13.8-17.2] ? Units: K/cumm ? M/cumm ? g/dL 11/21/2014 ?? 03:03:00 ?? 7.1 ?3.67 ??L ?10.7 ??L ?Test: Hct ?Platelet Ct ??MCV ? Reference: [40.7-50.3] ??[140-440] ?[80.0-97.6] ? Units: % ?K/cumm ? fL 11/21/2014 ?? 03:03:00 ?? 30.9 ??L ?261 ?84.2 ? COMPLETE BLOOD COUNT ?Test: MCH ?MCHC ? RDW ? Reference: [26.7-33.7] ??[32.7-35.5] ??[11.8-14.6] ? Units: pg ? g/dL ? % 11/21/2014 ?? 03:03:00 ?? 29.2 ? 34.7 ? 12.8 ?Test: MPV ? Reference: [6.8-10.4] ? Units: fL 11/21/2014 ?? 03:03:00 ?? 7.6 ? AUTOMATED WHITE CELL DIFFERENTIAL ?Test: Neut Pct Auto ??Lymph Pct Auto ??[place] Pct Auto ? Reference: [38.7-74.5] ?[20.0-54.3] ? [4.3-13.5] ? Units: % ?% ? % 11/21/2014 ?? 03:03:00 ?? 43.7 ? 39.2 ?9.7 ?Test: Eos Pct Auto ??Baso Pct Auto ??Neut Abs Auto ? Reference: [0.0-6.0] ? [0.0-3.0] ?[1.8-6.6] ? Units: % ? % ?K/cumm 11/21/2014 ?? 03:03:00 ?? 6.3 ??H ?1.1 ?3.1 ?Test: Lymph Abs Auto ??[place] Abs Auto ??Eos Abs Auto ? Reference: [1.2-3.3] ? [0.2-1.2] ?[0.0-0.5] ? Units: K/cumm ?K/cumm ? K/cumm 11/21/2014 ?? 03:03:00 ?? 2.8 ? 0.7 ?0.5 ?Test: Baso Abs Auto ? Reference: [0.0-0.2] ? Units: K/cumm 11/21/2014 ?? 03:03:00 ?? 0.1 ? MISCELLANEOUS HEMATOLOGY ?Test: ESR ? Reference: [0-12] ? Units: mm/H 11/21/2014 ?? 03:03:00 ?? 72 ??H ? SEROLOGY-BACTERIAL TESTS ?Test: C-Reactive Protein ? Reference: [0.0-9.9] ? Units: mg/L 11/21/2014 ?? 03:03:00 ?? 9.1 ?POINT OF CARE TESTS ? Chemistry ?Test: BHyButyr WB xPOC ??Glucose POC ? Reference: [0.0-0.5] ? [70-199] ? Units: mmol/L ?mg/dL 11/20/2014 ?? 21:18:00 ?? 0.2 11/20/2014 ?? 21:17:00 ? 254 ??H ? CANCELLED TESTS Date ?Time ?Test ? Cancel Reason 11/20/2014 ??21:19:00 ??BHybutyr WBxPOC us Historical Provider MD LAB BLOOD ORDERABLES Ann Marie l Result HISTORICAL RESULTS * Blood beta-hydroxybutyrate (11/20/2014 9:18 PM CDT) Pathologist [facility] Beta-hydroxybu tyrate, sr 0.2 0.0 - 0.5 mmol/L HISTORICAL RESULTS Blood specimen (specimen) 11/20/2014 9:18 PM CDT Abelardo Garcia MD LAB BLOOD ORDERABLES Final Result Performing Organization Address [facility] de Phone Number HISTORICAL RESULTS * (ABNORMAL) Blood glucose, POC (11/20/2014 9:17 PM CDT) Pathologist [facility] Glucose, POC, bld 254(H) 70 - 199 mg/dl HISTORICAL RESULTS Blood specimen (specimen) 11/20/2014 9:17 PM CDT Historical Provider LAB BLOOD ORDERABLES Ann Marie l Result Performing Organization Address [facility] de Phone Number HISTORICAL RESULTS documented in this encounter Visit Diagnoses Diagnosis Infective arthritis, hand (HCC) Unspecified infective arthritis, hand Type 2 or unspecified type diabetes mellitus Hypertensive kidney disease with chronic kidney disease, stage 1-4 Chronic kidney disease Chronic kidney disease, unspecified Encounter for long-term (current) use of other medications documented in this encounter
--- OUTSIDE RECORDS SUMMARY | 2024-08-18 13:15 | XMS_ITS | Encounter Summary ---
Author Organization [facility] Address [address] [address] Care Team Providers Care Director Of Cloud Services Name Role Phone Jhonatan Bellamy MD Primary Care Provider [phone]- [phone] Encounter Details Date Type Department Care Team (Late st Contact Info) Description 05/05/2017 Telephone [facility] [address] [address] Abelardo Petit MD [address] [facility] [address] [address] Social History Tobacco Use Types Packs/Day Years Used Date Smoking Tobacco: Never Smokeless Tobacco: Former Alcohol Use Standard Drinks/Week Comments No 0 (1 standard drink = 0.6 oz pur e alcohol) Sex and Gender Information Value Date Recorded Sex Assigned at Not on file 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 90 tablet 1 05/05/2017 7 documented in this encounter Miscellaneous Notes * Telephone Encounter - Chula Dodson MA - 05/05/2017 10:15 AM CDT Medication sent to pharmacy. documented in this encounter Plan of Treatment Not on file documented as of this encounter Visit Diagnoses Not on filedocumented in this encounter Discontinued Medications Medication Sig Discontinue Reason Start Date End Da te amLODIPine (NORVASC) 5 mg tablet Take 10 mg by mouth daily. Reorder 05/05/2017 documented as of this encounter Care Teams Director Of Cloud Services Relationship Specialty Start Date End Date Jhonatan Bellamy MD [address] [place] [address] PCP - General 03/25/15 04/16/18 documented as of this encounter
--- OUTSIDE RECORDS SUMMARY | 2024-08-18 13:15 | XMS_ITS | Encounter Summary ---
Author Organization [facility] Address [address] [address] Care Team Providers Care College Physics Instructor Name Role Phone Jhonatan Bellamy MD Primary Care Provider [phone]- [phone] Encounter Details Date Type Department Care Team (Late st Contact Info) Description 05/30/2017 Telephone [facility] [address] [address] Abelardo Petit MD [address] [facility] [address] [address] Social History Tobacco Use Types Packs/Day Years Used Date Smoking Tobacco: Never Smokeless Tobacco: Former Alcohol Use Standard Drinks/Week Comments No 0 (1 standard drink = 0.6 oz pur e alcohol) Sex and Gender Information Value Date Recorded Sex Assigned at Not on file 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 documented in this encounter Plan of Treatment Not on file documented as of this encounter Visit Diagnoses Not on filedocumented in this encounter Care Teams College Physics Instructor Relationship Specialty Start Date End Date Malench, Jhonatan E., MD [address] [place] [address] PCP - General 03/25/15 04/16/18 documented as of this encounter
--- OUTSIDE RECORDS SUMMARY | 2024-08-18 13:15 | XMS_ITS | Encounter Summary ---
Author Organization [facility] Address [address] [facility] [address] [place] [address] Care Team Providers Care Airplane Woodworker Name Role Phone Jhonatan Bellamy MD Primary Care Provider [phone]- [phone] Pedro Lakhani MD Primary Care Provider Eugenia Hughes MD Primary Care Provider [phone]- [phone] Aditya Castro MD Primary Care Provider [phone] Encounter Details Date Type Department Care Team (Late st Contact Info) Description 06/26/2017 Orders Only [facility] Cardiology [address] [facility] [address] [place] [address] Provider, MD Zev [address] [place] [address] Social History Tobacco Use Types Packs/Day Years Used Date Smoking Tobacco: Never Smokeless Tobacco: Former Alcohol Use Standard Drinks/Week Comments No 0 (1 standard drink = 0.6 oz pur e alcohol) Sex and Gender Information Value Date Recorded Sex Assigned at Not on file 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 Gender Identity Not on file Sexual Orientation Not on file documented as of this encounter Plan of Treatment Not on file documented as of this encounter Procedures Procedure Name Priority Date/Time Associated Diagnosis Comments TRANSTHORACIC ECHO (TTE) COM PLETE W DOPPLER/CF Routine 06/16/2017 documented in this encounter Results * Transthoracic Echo Complete W Doppler/CF (06/16/2017) Anatomical Region Laterality Modality Ultrasound us Historical Provider CV ECHO PROCEDURES Final Result documented in this encounter Visit Diagnoses Not on filedocumented in this encounter Care Teams Airplane Woodworker Relationship Specialty Start Date End Date Jhonatan Bellamy MD [address] [place] [address] PCP - General 03/25/15 04/16/18 Pedro Lakhani MD [address] [place] [address] PCP - General Family Practice 04/17/18 04/18/18 Eugenia Hughes MD [address] [place] [address] PCP - General Family Practice 04/19/18 10/16/19 Aditya Castro MD [address] [facility] [place] [address] PCP - General 10/17/19 documented as of this encounter
--- OUTSIDE RECORDS SUMMARY | 2024-08-18 13:15 | XMS_ITS | Encounter Summary ---
Author Organization [facility] Facility Care Team Providers Care Health Policy Nurse Name Role Phone Unavailable Primary Care Provider Unavailabl e Encounter Details Date Type Department Care Team (Late st Contact Info) Description 02/03/2015 - 02/03/2015 11:59 PM CDT Hospital Encounter [facility] [address] [place] [address] Pain in soft tissues of limb Social History Tobacco Use Types Packs/Day Years Used Date Smoking Tobacco: Never Assessed Sex and Gender Information Value Date Recorded Sex Assigned at Not on file 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 Gender Identity Not on file Sexual Orientation Not on file documented as of this encounter Medications at Time of Discharge aspirin 81 mg enteric coated tabletIndications:M yocardial Reinfarction Prevention Take 1 tablet (81 mg total) by mouth daily 11/07/2013 documented as of this encounter Plan of Treatment Not on file documented as of this encounter Procedures Procedure Name Priority Date/Time Associated Diagnosis Comments SERUM URIC ACID Routine 02/03/2015 10:35 AM CDT SERUM RHEUMATOID FACTOR QUANTITATIVE Routine 02/03/2015 10:35 AM CDT SERUM CYCLIC CITRULLINATED PEPTIDE IGG 3RD GENERATION Routine 02/03/2015 10:35 AM CDT SERUM C-REACTIVE PROTEIN Routine 02/03/2015 10:35 AM CDT SERUM ANTINUCLEAR AB (CRYSTAL) Routine 02/03/2015 10:35 AM CDT SERUM ALKALINE PHOSPHATASE Routine 02/03/2015 10:35 AM CDT PLASMA PHOSPHORUS Routine 02/03/2015 10: 35 AM CDT BLOOD ERYTHROCYTE SEDIMENTATION RATE (ESR) Routine 02/03/2015 10:35 AM CDT BLOOD CELL COUNT (CBC) Routine 5 10:35 AM CDT DISCHARGE LABORATORY CUMULATIVE REPORT 02/03/2015 documented in this encounter Results * Serum antinuclear ab (CRYSTAL) (02/03/2015 10:35 AM CDT) CRYSTAL, qual Negative Negative HISTORICAL RESULTS Comment: Interpretive Data Normal range for Crystal Qualitative Antibody = Negative. 1. ??CRYSTAL titers are performed on all positive qualitative results. 2. ??A significantly positive CRYSTAL result is defined as a positive nuclear fluorescence at a titer of 1:80 or greater. 3. ??15% of normal people above age 65 have significantly positive CRYSTAL results. ??5% or less of normal people age 65 or under have significantly positive CRYSTAL results. Current interpretive data was last revised on 03. Serum 02/03/2015 10:3 5 AM CDT Narrative HISTORICAL RESULTS - 02/04/2015 8:10 AM CDT Client / Account bill? No Client / Account bill? No Client / Account bill? No Client Account Number and Description: Client Account Number and Description: Client Account Number and Description: Byron Castillo MD LAB BLOOD ORDERABLES Ann Marie williams Result HISTORICAL RESULTS * Serum C-reactive protein (02/03/2015 10:35 AM CDT) C-RP 8.8 0.0 - 9.9 mg/L HISTORICAL RESULTS Serum 02/03/2015 10:3 5 AM CDT Narrative HISTORICAL RESULTS - 02/04/2015 9:19 AM CDT Client / Account bill? No Client Account Number and Description: Byron Castillo MD LAB BLOOD ORDERABLES Ann Marie l Result Performing Organization Address City/[facility] [employer] Phone Number HISTORICAL RESULTS * (ABNORMAL) Plasma phosphorus (02/03/2015 10:35 AM CDT) Phosphorus, pl 5.2(H) 2.3 - 4.3 mg/dl HISTORICAL RESULTS Plasma 02/03/2015 10:3 5 AM CDT Narrative HISTORICAL RESULTS - 02/03/2015 12:32 PM CDT Client / Account bill? No Client Account Number and Description: Byron Castillo MD LAB BLOOD ORDERABLES Ann Marie l Result Performing Organization Address [facility] de Phone Number HISTORICAL RESULTS * (ABNORMAL) Serum uric acid (02/03/2015 10:35 AM CDT) Uric acid 11.3(H) 3.0 - 8.0 mg/dl HISTORICAL RESULTS Serum 02/03/2015 10:3 5 AM CDT Narrative HISTORICAL RESULTS - 02/03/2015 12:32 PM CDT Client / Account bill? No Client Account Number and Description: Byron Castillo MD LAB BLOOD ORDERABLES Ann Marie l Result Performing Organization Address [facility] [employer] Phone Number HISTORICAL RESULTS * Serum alkaline phosphatase (02/03/2015 10:35 AM CDT) Alk phos 118 38 - 126 Units/L HISTORICAL RESULTS Serum 02/03/2015 10:3 5 AM CDT Narrative HISTORICAL RESULTS - 02/03/2015 12:32 PM CDT Client / Account bill? No Client Account Number and Description: Byron Castillo MD LAB BLOOD ORDERABLES Ann Marie l Result HISTORICAL RESULTS * (ABNORMAL) Blood cell count (CBC) (02/03/2015 10:35 AM CDT) WBC 5.4 3.8 - 9.8 K/cumm HISTORICAL RESULTS RBC 3.90(L) 4.50 - 5.70 M/cumm HISTORICAL RESULTS Hgb 11.2(L) 13.8 - 17.2 g/dl HISTORICAL RESULTS Hct 31.9(L) 40.7 - 50.3 % HISTORICAL RESULTS MCV 81.8 80.0 - 97.6 fl HISTORICAL RESULTS MCH 28.7 26.7 - 33.7 pg HISTORICAL RESULTS MCHC 35.1 32.7 - 35.5 g/dl HISTORICAL RESULTS Rdw 13.5 11.8 - 14.6 % HISTORICAL RESULTS Platelets 223 140 - 440 K/cumm HISTORICAL RESULTS MPV 8.3 6.8 - 10.4 fl HISTORICAL RESULTS Neutrophils, abs 2.6 1.8 - 6.6 K/cumm HISTORICAL RESULTS Lymphocytes, abs 2.1 1.2 - 3.3 K/cumm HISTORICAL RESULTS Monocytes, absolute 0.6 0.2 - 1.2 K/cumm HISTORICAL RESULTS Eosinophils, abs 0.2 0.0 - 0.5 K/cumm HISTORICAL RESULTS Basophils, abs 0.0 0.0 - 0.2 K/cumm HISTORICAL RESULTS Neutrophils 47.2 38.7 - 74.5 % HISTORICAL RESULTS Lymphocytes 37.9 20.0 - 54.3 % HISTORICAL RESULTS Monos 11.4 4.3 - 13.5 % HISTORICAL RESULTS Eosinophils 3.0 0.0 - 6.0 % HISTORICAL RESULTS Basophils 0.5 0.0 - 3.0 % HISTORICAL RESULTS Blood specimen (specimen) 02/03/2015 10:35 AM CDT Narrative HISTORICAL RESULTS - 02/03/2015 11:47 AM CDT Client / Account bill? No Client Account Number and Description: Byron Castillo MD LAB BLOOD ORDERABLES Ann Marie l Result HISTORICAL RESULTS * (ABNORMAL) Blood erythrocyte sedimentation rate (ESR) (02/03/2015 10:35 AM CDT) Erythrocyte sedimentation rate 55.0(H) 0.0 - 12.0 mm/hr HISTORICAL RESULTS Blood specimen (specimen) 02/03/2015 10:35 AM CDT Narrative HISTORICAL RESULTS - 02/03/2015 12:07 PM CDT Client / Account bill? No Client Account Number and Description: Byron Castillo MD LAB BLOOD ORDERABLES Ann Marie l Result HISTORICAL RESULTS * Serum rheumatoid factor quantitative (02/03/2015 10:35 AM CDT) Pathologist [facility] Rheumatoid factor, quant <10 0 - 15 IUnits/ml HISTORICAL RESULTS Serum 02/03/2015 10:3 5 AM CDT Narrative HISTORICAL RESULTS - 02/04/2015 3:38 AM CDT Client / Account bill? No Client Account Number and Description: Byron Castillo MD LAB BLOOD ORDERABLES Ann Marie l Result Performing Organization Address City/[facility] [employer] Phone Number HISTORICAL RESULTS * Serum cyclic citrullinated peptide IgG 3rd generation (02/03/2015 10:35 AM CDT) Pathologist [facility] CCP3 IgG <15.6 0.0 - 19.0 units HISTORICAL RESULTS Comment: Interpretive Data The following results were obtained with the unrival Quanta Lite CCP3 IgG ABRAHAM. ??Anti-CCP values obtained with the different manufacturers' assay methods may not be used interchangeably. The magnitude of the reported IgG levels cannot be correlated to an endpoint titer. Reference ?Result Interpretation 0-19 Units ? Negative 20-39 Units ? Weak Positive 40-59 Units ? Moderate Positive 60 or above Units ?? Strong Positive Current interpretive data was last revised on 2006. Serum 02/03/2015 10:3 5 AM CDT Narrative HISTORICAL RESULTS - 02/05/2015 8:05 AM CDT Client / Account bill? No Client Account Number and Description: us Byron Castillo MD LAB BLOOD ORDERABLES Ann Marie l Result HISTORICAL RESULTS * DISCHARGE LABORATORY CUMULATIVE REPORT (02/03/2015) Narrative 02/03/2015 Ordered by an unspecified provider. us Historical Provider LAB BLOOD ORDERABLES Ann Marie l Result documented in this encounter Visit Diagnoses Diagnosis Pain in soft tissues of limb documented in this encounter
--- OUTSIDE RECORDS SUMMARY | 2024-08-18 13:15 | XMS_ITS | Encounter Summary ---
Author Organization [facility] Address [address] [address] Care Team Providers Care Nurse Staff Name Role Phone Jhonatan Bellamy MD Primary Care Provider [phone]- [phone] Encounter Details Date Type Department Care Team (Late st Contact Info) Description 2017 Telephone [facility] [address] [id number] Abelardo Petit MD [address] [facility] [address] [address] Social History Tobacco Use Types Packs/Day Years Used Date Smoking Tobacco: Never Smokeless Tobacco: Former Alcohol Use Standard Drinks/Week Comments No 0 (1 standard drink = 0.6 oz pur e alcohol) Sex and Gender Information Value Date Recorded Sex Assigned at Not on file 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 I will call pt when they are complete. ER COBBLER documented in this encounter Plan of Treatment Not on file documented as of this encounter Visit Diagnoses Not on filedocumented in this encounter Care Teams Nurse Staff Relationship Specialty Start Date End Date Jhonatan Bellamy MD [address] [place], [place] [id number] PCP - General 03/25/15 04/16/18 documented as of this encounter
--- OUTSIDE RECORDS SUMMARY | 2024-08-18 13:15 | XMS_ITS | Encounter Summary ---
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 Pt also asked about chest tightness which he has had from time to time that reminds him of the discomfort he had withhis NC, but not near as severe. Patient said he's not sure if he's wigging out or not. Moved hospital follow up appt to early next week to sort things out. Pt denies missing any doses of DAPT. * Telephone Encounter - Myrna Easton NP - 05/03/2017 2:23 PM CDT It looks like his CAD is a new diagnosis, so I imagine he was not on aspirin until his PCI recently. He can resume the Uloric, but I would tell him that it may not be as effective at controlling his gout now that he is on aspirin b/c aspirin may raise uric acid levels. * Telephone Encounter - Lisa Diaz RN - 05/03/2017 10:46 AM CDT Pt ws taking Uloric before his NC, asked if it's OK to take . Told him I thought it should be Ok, but will double check with CREW CALLER. documented in this encounter Plan of Treatment Not on file documented as of this encounter Visit Diagnoses Not on filedocumented in this encounter Care Teams Tissue Specialist Relationship Specialty Start Date End Date Jhonatan Bellamy MD [address] [facility] [place] [address] PCP - General 03/25/15 04/16/18 documented as of this encounter
--- OUTSIDE RECORDS SUMMARY | 2024-08-18 13:15 | XMS_ITS | Encounter Summary ---
Author Organization [facility] Address [address] [facility] [address] [place] [address] Care Team Providers Care General Merchandise Manager Name Role Phone Jhonatan Bellamy MD Primary Care Provider +1- [phone] Reason for Visit * Reason Comments Hospital Follow Up 2 wk f/u Encounter Details Date Type Department Care Team (Late st Contact Info) Description 05/04/2017 1:30 PM CDT Office Visit [facility] [address] [address] Myrna Easton NP [address] [facility] [address] [address] Coronary artery disease involving wales coronary artery of wales heart, angina presence unspecified (Primary Dx); Status post percutaneous transluminal coronary angioplasty; Presence of stent in coronary artery; Shortness of breath; Chest pain, unspecified type; Chronic kidney disease, unspecified stage Social History Tobacco Use Types Packs/Day Years Used Date Smoking Tobacco: Never Smokeless Tobacco: Former Alcohol Use Standard Drinks/Week Comments No 0 (1 standard drink = 0.6 oz pur e alcohol) Sex and Gender Information Value Date Recorded Sex Assigned at Not on file 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 Gender Identity Not on file Sexual Orientation Not on file documented as of this encounter Last Filed Vital Signs Vital Sign Reading Time Taken Comments Blood Pressure 150/60 05/04/2017 1:52 PM CDT Pulse 74 05/04/2017 1:52 PM CDT Temperature - - Respiratory Rate - - Oxygen Saturation 94% 05/04/2017 1:52 PM CDT Inhaled Oxygen Concentration - - Weight 124.3 kg (274 lb) 05/04/2017 1:52 PM CDT Height 177.8 cm (5' 10 ) 05/04/2017 1:52 PM CDT Body Mass Index 39.31 05/04/2017 1:52 PM CDT documented in this encounter Patient Instructions * Patient Instructions* Myrna Easton NP - 05/04/2017 1:30 PM CDT If you experience chest pain lasting longer than 5 minutes, take a nitroglycerin and let it melt under your tongue. If chest pain is not relieved in 5 minutes, take a 2nd nitroglycerin. If chest painis still not relieved after another 5 minutes, take a 3rd nitroglycerin and call 911. Weigh yourself every morning after you urinate. Record your weights. Call us with weight gain of 3 or more pounds in 1 day, and/or 5 or more pounds in 1 week. documented in this encounter Ordered Prescriptions Prescription Sig Dispense Quantity Refills Last Filled Start Date End Date nitroglycerin (NITROSTAT) 0.4 mg SL tabletIndications: Coronary artery disease involving wales coronary artery of wales heart, angina presence unspecified Place 1 tablet (0.4 mg total) under the tongue every 5 (five) minutes as needed for chest pain. Up to 3 doses 100 tablet 3 05/04/2017 8 documented in this encounter Progress Notes * Myrna Easton NP - 05/04/2017 1:30 PM CDT Patient ID: Juvenal Daigle Chief Complaint: Juvenal Daigle is a 46 y.o. male with a past medical history of HTN, CKD stage III, insulin-dependent diabetes, gout, rheumatoid arthritis, BEN and obesity. He was diagnosed with a right popliteal vein DVT on 03/08/2017. He presented to [facility] on 04/15/[address] elevation PR. He proceeded to the laboratory assistant with Dr. Petit. He had a high-grade stenosis of the distal RCA extending to the origin of the RPDA. He had a 3.0 x 20 mm MARIELLA placed in that area of stenosis. The LCX had modest scattered luminal irregularities and an 80% ostial stenosis of a relatively small OM 1. TheLAD also had modest luminal irregularities but no flow limiting lesions. Postprocedure he developeda rash that was attributed to Brilinta, therefore he was switched to Plavix. He was maintained on his beta-umair, statin and aspirin. NICOLÁS-inhibitor was avoided because of his renal insufficiency and problems with hyperkalemia in the past. His hypertension was addressed by increasing his amlodipine to 10 mg daily and adding hydralazine and clonidine. Echocardiogram was performed on 04/15/2017 demarco wing normal LV size and systolic function with the mid inferolateral segment of the LV hypokinetic,EF measured 56%. Left atrial size is the upper limits of normal. He was also treated for a gout flare during his hospitalization. Creatinine dee to 2.4 after cardiac catheterization, but came down to 2.2 on the day of his discharge. He was discharged on 04/23/2017. He comes to the office today accompanied by his mother for hospital follow-up appointment. He complains of ongoing chest pain/tightness and shortness of breath. He feels like his breath is limited when he is trying to draw a breath in. He has intermittent jittery palpitations that last a couple of minutes. He feels like he has started to retain more fluid since his discharge (weight today appearsto be up 12 lb compared to weight measured 03/21/17). Two nights ago he had some bleeding from his right Rehana's, but no other bleeding problems aside from that. He saw his data center engineer Dr. Reyes on 04/25/2017. He was given a 64 oz per day fluid restriction and furosemide was increased to 40 mg in themorning and 20 mg in the afternoon. He saw his PCP Dr. Bellamy 05/02/2017 and his clonidine was increased to 0.1 mg b.i.d.. He was referred to cardiac rehab, but this is currently on hold because he is being evaluated for a right foot fracture that was discovered back in February when he was diagnosed with a DVT. He wants to know about his fitness to return to work. His mother voices a lot of concerns about his condition and course of treatment and is concerned that the physicians caring for her son are not communicating with each other. 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 He is and has 2 children. Records Reviewed this visit: Most recent [facility] admission records including cardiology consultation, cath report, echocardiogram report, lab results, discharge summary. I have reviewed: allergies, current medications, past family history, past medical history, past social history, past surgical history and problem list Review of Systems Constitution: Positive for fever, malaise/fatigue and weight gain. Negative for diaphoresis and weight loss. HENT: Negative for headaches and hearing loss. Eyes: Negative for visual disturbance. Cardiovascular: Positive for chest pain, dyspnea on exertion, leg swelling and palpitations. Negative for claudication, orthopnea, paroxysmal nocturnal dyspnea and syncope. Respiratory: Positive for shortness of breath and snoring. Negative for cough, hemoptysis and wheezing. Hematologic/Lymphatic: Bruises/bleeds easily. Skin: Negative for poor wound healing and rash. No easy bruising. No bleeding problems. Musculoskeletal: Positive for joint pain and myalgias. Gastrointestinal: Positive for heartburn and nausea. Negative for vomiting. No reflux Genitourinary: Negative for hematuria. Neurological: Positive for dizziness. Negative for light-headedness. Psychiatric/Behavioral: Positive for depression. The patient is not nervous/anxious. Vital Signs: BP 150/60 (BP Location: Left arm, Patient Position: Sitting) Pulse 74 Ht 177.8 cm (5' 10 ) Wt124 kg (274 lb) SpO2 94% BMI 39.31 kg/m?? Physical Exam Constitutional: He is oriented to person, place, and time. He appears well- developed. No distress. Obese HENT: Head: Normocephalic and atraumatic. Eyes: Conjunctivae and EOM are normal. Pupils are equal, round, and reactive to light. No scleral icterus. Neck: Normal range of motion. No JVD present. No tracheal deviation present. Cardiovascular: Normal rate, regular rhythm and normal heart sounds. No murmur heard. Femoral artery puncture site closed, soft, nontender, no bruit. Pulmonary/Chest: Effort normal. No respiratory distress. He has decreased breath sounds. Abdominal: Soft. Bowel sounds are normal. There is no tenderness. Musculoskeletal: Normal range of motion. He exhibits edema. Bilateral lower extremity 1+ pitting edema extending to mid calves. Neurological: He is alert and oriented to person, place, and time. Skin: Skin is warm and dry. Skin is peeling on his arms Psychiatric: He is withdrawn. He exhibits a depressed mood. Current Outpatient Prescriptions: ??? apixaban (ELIQUIS) 5 mg tablet, 5 mg 2 (two) times a day., Disp: , Rfl: ??? aspirin 81 mg tablet, Take 81 mg by mouth daily., Disp: , Rfl: ??? cholecalciferol (VITAMIN D-3) 2,000 unit capsule, Take 2,000 Units by mouth daily., Disp: , Rfl: ??? cloNIDine (CATAPRES) 0.1 mg tablet, Take 0.1 mg by mouth 2 (two) times a day., Disp: , Rfl: ??? clopidogrel (PLAVIX) 75 mg tablet, Take 75 mg by mouth daily., Disp: , Rfl: ??? colchicine (COLCRYS) 0.6 mg tablet, Take 0.6 mg by mouth 2 (two) times a day., Disp: , Rfl: ??? febuxostat (ULORIC) 40 mg tablet, Take 40 mg by mouth daily., Disp: , Rfl: ??? furosemide (LASIX) 40 mg tablet, Take 40 mg by mouth 2 (two) times a day. Take 2 tabs in the amand one tab in the pm , Disp: , Rfl: ??? hydrALAZINE (APRESOLINE) 100 mg tablet, Take 100 mg by mouth 2 (two) times a day., Disp: , Rfl: ??? metoprolol (LOPRESSOR) 100 mg tablet, Take 100 mg by mouth 2 (two) times a day., Disp: , Rfl: ??? raNITIdine (ZANTAC) 300 mg tablet, Take 300 mg by mouth 2 (two) times a day., Disp: , Rfl: ??? simvastatin (ZOCOR) 40 mg tablet, Take 40 mg by mouth nightly., Disp: , Rfl: ??? amLODIPine (NORVASC) 5 mg tablet, Take 2 tablets (10 mg total) by mouth daily., Disp: 90 tablet, Rfl: 1 ??? nitroglycerin (NITROSTAT) 0.4 mg SL tablet, Place 1 tablet (0.4 mg total) under the tongue every 5 (five) minutes as needed for chest pain. Up to 3 doses, Disp: 100 tablet, Rfl: 3 Assessment: Diagnoses and all orders for this visit: 1. Coronary artery disease involving wales coronary artery of wales heart, angina presence unspecified (Primary) - nitroglycerin (NITROSTAT) 0.4 mg SL tablet; Place 1 tablet (0.4 mg total) under the tongue every 5 (five) minutes as needed for chest pain. Up to 3 doses 2. Status post percutaneous transluminal coronary angioplasty 3. Presence of stent in coronary artery 4. Shortness of breath 5. Chest pain, unspecified type 6. Chronic kidney disease, unspecified stage Plan/Recommendations: I gave him a prescription for sublingual nitroglycerin to use p.r.n.. His weight is up 12 lb and he is concerned about his fluid retention. Before giving him more diuretics, I would prefer to discuss this with his data center engineer. I told the patient and his mother I wouldcontact Dr. Reyes to discuss his diuretics, and call them to let them know what we decide. He is not yet rehabilitated enough to return to work. His fitness to return to work will be re-evaluated again at his next appointment. We are happy to help complete paperwork for STD, FMLA, and [employer]. Our RN Robin is already working on these. Counseling performed at this visit included low sodium diet, monitoring daily weights and appropriate use of nitroglycerin. Return to the office to see Dr. Petit in 2 weeks. Call us sooner with questions or concerns. A total of 30 minutes of this 35 minutes visit were spent in direct [id number] consultation with the patient and his mother answering their questions, discussing his symptoms and course of treatment. 05/05/2017 Addendum: This morning I called the office of data center engineer Dr. Reyes and relayed a message to staff member Vashti wishing to give the patient a 4 day course of metolazone 5 mg daily if okay with Dr. Reyes. Vashti took my message to page him. Dr. Reyes immediately called me back and agreed with the metolazone. I then called the patient to give him these instructions. When I spoke to the patient he informed me he was now back in the hospital. Last night after he was still concerned with his ongoing chest pain, so decided to go to the emergency room and was admitted. documented in this encounter Plan of Treatment Not on file documented as of this encounter Visit Diagnoses Diagnosis Coronary artery disease involving wales coronary artery of wales heart, angina presence unspecified- Primary Status post percutaneous transluminal coronary angioplasty Postsurgical percutaneous transluminal coronary angioplasty status Presence of stent in coronary artery Shortness of breath Chest pain, unspecified type Chronic kidney disease, unspecified stage documented in this encounter Historical Medications * This list may reflect changes made after this encounter. apixaban (ELIQUIS) 5 mg tablet 5 mg 2 (two) times a day. 05/18/2017 febuxostat (ULORIC) 40 mg tablet Take 40 mg by mouth daily. 01/20/2021 metoprolol (LOPRESSOR) 100 mg tablet Take 100 mg by mouth 2 (two) times a day. 07/19/2017 aspirin 81 mg tablet Take 81 mg by mouth daily. 01/20/2021 simvastatin (ZOCOR) 40 mg tablet Take 40 mg by mouth nightly. 01/20/2021 furosemide (LASIX) 40 mg tablet Take 40 mg by mouth 2 (two) times a day. Take 2 tabs in the am and one tab in the pm 07/18/2018 colchicine (COLCRYS) 0.6 mg tabletIndications :as needed for pain Take 0.6 mg by mouth 2 (two) times a day. 01/20/2021 amLODIPine (NORVASC) 5 mg tablet Take 10 mg by mouth daily. 05/05/2017 clopidogrel (PLAVIX) 75 mg tablet Take 75 mg by mouth daily. 05/22/2017 cholecalciferol (VITAMIN D-3) 2,000 unit capsule Take 2,000 Units by mouth daily. 01/20/2021 raNITIdine (ZANTAC) 300 mg tablet Take 300 mg by mouth 2 (two) times a day. 01/20/2021 cloNIDine (CATAPRES) 0.1 mg tablet Take 0.1 mg by mouth 2 (two) times a day. 01/20/2021 hydrALAZINE (APRESOLINE) 100 mg tabletIndications :hypertension Take 100 mg by mouth 2 (two) times a day. 05/23/2017 added in this encounter Care Teams General Merchandise Manager Relationship Specialty Start Date End Date Jhonatan Bellamy MD [address] [place] [address] PCP - General 03/25/15 04/16/18 documented as of this encounter
--- OUTSIDE RECORDS SUMMARY | 2024-08-18 13:15 | XMS_ITS | Encounter Summary ---
Author Organization [facility] Address [address] [address] Care Team Providers Care Sorter Laundry Articles Name Role Phone Jhonatan Bellamy MD Primary Care Provider [phone]- [phone] Encounter Details Date Type Department Care Team (Late st Contact Info) Description 05/22/2017 Telephone [facility] [address] [phone] Abelardo Petit MD 68[address] [facility] [address] [address] Social History Tobacco Use Types Packs/Day Years Used Date Smoking Tobacco: Never Smokeless Tobacco: Former Alcohol Use Standard Drinks/Week Comments No 0 (1 standard drink = 0.6 oz pur e alcohol) Sex and Gender Information Value Date Recorded Sex Assigned at Not on file 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 90 tablet 1 05/22/2017 11/13/2017 documented in this encounter Miscellaneous Notes * Telephone Encounter - Chula Dodson MA - 05/22/2017 1:09 PM CDT Medication sent to pharmacy. documented in this encounter Plan of Treatment Not on file documented as of this encounter Visit Diagnoses Not on filedocumented in this encounter Discontinued Medications Medication Sig Discontinue Reason Start Date End Da te clopidogrel (PLAVIX) 75 mg tablet Take 75 mg by mouth daily. Reorder 05/22/2017 documented as of this encounter Care Teams Sorter Laundry Articles Relationship Specialty Start Date End Date Jhonatan Bellamy MD [address] [place] [address] PCP - General 03/25/15 04/16/18 documented as of this encounter
--- OUTSIDE RECORDS SUMMARY | 2024-08-18 13:15 | XMS_ITS | Encounter Summary ---
Author Organization [facility] Address [address] [facility] [address] [place] [address] Care Team Providers Care Smudger Name Role Phone Jhonatan Bellamy MD Primary Care Provider [phone]- [phone] Pedro Lakhani MD Primary Care Provider Eugenia Hughes MD Primary Care Provider +1- [phone] Aditya Castro MD Primary Care Provider [phone] Encounter Details Date Type Department Care Team (Late st Contact Info) Description 05/16/2017 Orders Only [facility] Cardiology [address] [facility] [address] [place] [address] Provider, MD Zev [address] [place] [address] Social History Tobacco Use Types Packs/Day Years Used Date Smoking Tobacco: Never Smokeless Tobacco: Former Alcohol Use Standard Drinks/Week Comments No 0 (1 standard drink = 0.6 oz pur e alcohol) Sex and Gender Information Value Date Recorded Sex Assigned at Not on file 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 Gender Identity Not on file Sexual Orientation Not on file documented as of this encounter Plan of Treatment Not on file documented as of this encounter Procedures Procedure Name Priority Date/Time Associated Diagnosis Comments TRANSTHORACIC ECHO (TTE) COM PLETE W DOPPLER/CF Routine 04/15/2017 documented in this encounter Results * Transthoracic Echo Complete W Doppler/CF (04/15/2017) Anatomical Region Laterality Modality Ultrasound us Historical Provider CV ECHO PROCEDURES Final Result documented in this encounter Visit Diagnoses Not on filedocumented in this encounter Care Teams Smudger Relationship Specialty Start Date End Date Jhonatan Bellamy MD [address] [place] [address] PCP - General 03/25/15 04/16/18 Pedro Lakhani MD [address] [place] [address] PCP - General Family Practice 04/17/18 04/18/18 Eugenia Hughes MD [address] [place] [address] PCP - General Family Practice 04/19/18 10/16/19 Aditya Castro MD [address] [facility] [place] [address] PCP - General 10/17/19 documented as of this encounter
--- OUTSIDE RECORDS SUMMARY | 2024-08-18 13:15 | XMS_ITS | Encounter Summary ---
Author Organization [facility] Address [address] [address] Care Team Providers Care Bilingual Middle School Teacher Name Role Phone Jhonatan Bellamy MD Primary Care Provider [phone]- [phone] Encounter Details Date Type Department Care Team (Late st Contact Info) Description 06/14/2017 Telephone [facility] [address] [place] [phone] Abelardo Petit MD [address] [facility] [address] [address] Social History Tobacco Use Types Packs/Day Years Used Date Smoking Tobacco: Never Smokeless Tobacco: Former Alcohol Use Standard Drinks/Week Comments No 0 (1 standard drink = 0.6 oz pur e alcohol) Sex and Gender Information Value Date Recorded Sex Assigned at Not on file Legal Sex Male 3:42 AM [employer]AL[employer] Gender Identity Not on file Sexual Orientation Not on file documented as of this encounter Miscellaneous Notes * Telephone Encounter - Lissy Schneider MA - 06/14/2017 1:37 PM CDT Per [place] message fowarded to Dr. Petit. Per Dr. Petit changed terazosin from bid to qd do to insurance not paying for bid. Spoke with pt. Pt has picked up rx and informed of the change. Pt verbally expressed understanding. * Telephone Encounter - Elsie Holly RN - 06/14/2017 11:05 AM CDT Spoke to pt; States he picked up his new rx for the terazosin and it is for once daily as he used to take it twice daily. Will forward to RUBEN Yuan as she has been dealing with this refill through thepharmacy; Pt would like call back to discuss. documented in this encounter Plan of Treatment Not on file documented as of this encounter Visit Diagnoses Not on filedocumented in this encounter Care Teams Bilingual Middle School Teacher Relationship Specialty Start Date End Date Jhonatan Bellamy MD [address] [place] [address] PCP - General 03/25/15 04/16/18 documented as of this encounter
--- OUTSIDE RECORDS SUMMARY | 2024-08-18 13:15 | XMS_ITS | Encounter Summary ---
Author Organization [facility] Address [address] [address] Care Team Providers Care Agriscience Technology Instructor Name Role Phone Jhonatan Bellamy MD Primary Care Provider [phone]- [phone] Encounter Details Date Type Department Care Team (Late st Contact Info) Description 09/11/2017 Telephone [facility] [address] [place] [phone] Shira Bernstein RMA Social History Tobacco Use Types Packs/Day Years Used Date Smoking Tobacco: Never Smokeless Tobacco: Former Alcohol Use Standard Drinks/Week Comments No 0 (1 standard drink = 0.6 oz pur e alcohol) Sex and Gender Information Value Date Recorded Sex Assigned at Not on file 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 She is requesting copy of last office note. Note faxed to her at [phone]. She will call us back if she has any further questions after receiving the note. TRY HATCHERY LABORER * Telephone Encounter - Shira Bernstein MA - 09/11/2017 11:13 AM CST Please give the pt a call in regards to the restrictions that the pt has been placed on. What activity can the pt do, or not do TRY HATCHERY LABORER documented in this encounter Plan of Treatment Not on file documented as of this encounter Visit Diagnoses Not on filedocumented in this encounter Care Teams Agriscience Technology Instructor Relationship Specialty Start Date End Date Jhonatan Bellamy MD [address] [place] [address] PCP - General 03/25/15 04/16/18 documented as of this encounter
--- OUTSIDE RECORDS SUMMARY | 2024-08-18 13:15 | XMS_ITS | Encounter Summary ---
Author Organization [facility] Address [address] [address] Care Team Providers Care Stenciler Name Role Phone Jhonatan Bellamy MD Primary Care Provider [phone]- [phone] Encounter Details Date Type Department Care Team (Late st Contact Info) Description 06/08/2017 Telephone [facility] [address] [address] Abelardo Petit MD 6810 [facility] [address] [address] Social History Tobacco Use Types Packs/Day Years Used Date Smoking Tobacco: Never Smokeless Tobacco: Former Alcohol Use Standard Drinks/Week Comments No 0 (1 standard drink = 0.6 oz pur e alcohol) Sex and Gender Information Value Date Recorded Sex Assigned at Not on file Legal 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 documented in this encounter Plan of Treatment Not on file documented as of this encounter Visit Diagnoses Not on filedocumented in this encounter Care Teams Stenciler Relationship Specialty Start Date End Date Jhonatan Bellamy MD [address] [place] [address] PCP - General 03/25/15 04/16/18 documented as of this encounter
--- OUTSIDE RECORDS SUMMARY | 2024-08-18 13:15 | XMS_ITS | Encounter Summary ---
Author Organization [facility] Address [address] [address] Care Team Providers Care Speeder Frame Tender Name Role Phone Jhonatan Bellamy MD Primary Care Provider [phone]- [phone] Encounter Details Date Type Department Care Team (Late st Contact Info) Description 07/04/2017 Telephone [facility] [address] [id number] Abelardo Petit MD [address] [facility] [address] [address] Social History Tobacco Use Types Packs/Day Years Used Date Smoking Tobacco: Never Smokeless Tobacco: Former Alcohol Use Standard Drinks/Week Comments No 0 (1 standard drink = 0.6 oz pur e alcohol) Sex and Gender Information Value Date Recorded Sex Assigned at Not on file 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 SEWER documented in this encounter Plan of Treatment Not on file documented as of this encounter Visit Diagnoses Not on filedocumented in this encounter Care Teams Speeder Frame Tender Relationship Specialty Start Date End Date Malench, Jhonatan E., MD [address] [place] [address] PCP - General 03/25/15 04/16/18 documented as of this encounter
--- OUTSIDE RECORDS SUMMARY | 2024-08-18 13:15 | XMS_ITS | Encounter Summary ---
Author Organization [facility] Care Team Providers Care Bridge Repair Crew Person Name Role Phone Jhonatan Bellamy MD Primary Care Provider [phone]- [phone] Encounter Details Date Type Department Care Team (Late st Contact Info) Description 06/04/2016 12:36 PM CDT - 06/04/2016 4:36 PM CDT Hospital [facility] [address] [facility] [address] [place] [id number] Olecranon bursitis of left elbow Social History Tobacco Use Types Packs/Day Years Used Date Smoking Tobacco: Never Assessed Sex and Gender Information Value Date Recorded Sex Assigned at Not on file 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 Gender Identity Not on file Sexual [...] Procedure Name Priority Date/Time Associated Diagnosis Comments BLOOD GLUCOSE, POC Routine 06/04/2016 12 :48 PM CDT documented in this encounter Results * Blood glucose, POC (06/04/2016 12:48 PM CDT) Glucose, POC, bld 128 70 - 199 mg/dl CDR HISTORICAL RESULTS Blood specimen (specimen) 06/04/2016 12:48 PM CDT us Historical Provider LAB BLOOD ORDERABLES Ann Marie kramer Result CDR HISTORICAL RESULTS documented in this encounter Visit Diagnoses Diagnosis Olecranon bursitis of left elbow documented in this encounter Care Teams Bridge Repair Crew Person Relationship Specialty Start Date End Date Jhonatan Bellamy MD [address] [place] [address] PCP - General 03/25/15 04/16/18 documented as of this encounter
--- OUTSIDE RECORDS SUMMARY | 2024-08-18 13:15 | XMS_ITS | Encounter Summary ---
Author Organization [facility] Facility Care Team Providers Care Retail Brand Ambassador Name Role Phone Jhonatan Bellamy MD Primary Care Provider [phone]- [phone] Encounter Details Date Type Department Care Team (Late st Contact Info) Description 03/26/2015 6:57 PM CDT - 03/26/2015 11:59 PM CDT Hospital [facility] Raisa Degroot MD [address] [address] Yamilet Valerio PA [address] [place] [address] Arthropathy Social History Tobacco Use Types Packs/Day Years Used Date Smoking Tobacco: Never Assessed Sex and Gender Information Value Date Recorded Sex Assigned at Not on file Legal Sex Male 3:42 AM [employer] Gender Identity Not on file Sexual Orientation Not on file documented as of this encounter Medications at Time of Discharge aspirin 81 mg enteric coated tabletIndications:M yocardial Reinfarction Prevention Take 1 tablet (81 mg total) by mouth daily 11/07/2013 documented as of this encounter Plan of Treatment Not on file documented as of this encounter Procedures Procedure Name Priority Date/Time Associated Diagnosis Comments URINE MICROSCOPY Routine 03/26/2015 5:00 PM CDT SERUM RHEUMATOID FACTOR Routine 03/26/20 5:00 PM CDT SERUM RAPID PLASMA REAGIN (RPR) Routine 03/26/2015 5:00 PM CDT SERUM TRINIDAD-1 AB Routine 03/26/2015 5:00 PM CDT SERUM HEPATITIS C AB Routine 03/26/2015 5:00 PM CDT SERUM HEPATITIS B SURFACE AG Routine 03/26/2015 5:00 PM CDT SERUM HEPATITIS B CORE AB Routine 03/26/2015 5:00 PM CDT SERUM DOUBLE-STRANDED DNA AB Routine 03/26/2015 5:00 PM CDT SERUM CYCLIC CITRULLINATED PEPTIDE IGG 3RD GENERATION Routine 03/26/2015 5:00 PM CDT SERUM COMPLEMENT Routine 03/26/2015 5:00 PM CDT SERUM [id number] I, IGA Routine 03/26/2015 5:00 PM CDT SERUM [id number] I IGM Routine 03/26/2015 5:00 PM CDT SERUM ANTINUCLEAR AB (SHAWN) Routine 03/26/2015 5:00 PM CDT SERUM ANTI-EXTRACTABLE NUCLEAR AG (JOSE ENRIQUE), SS-B AB Routine 03/26/2015 5:00 PM CDT SERUM ANTI-EXTRACTABLE NUCLEAR AG (JOSE ENRIQUE), SS-A AB Routine 03/26/2015 5:00 PM CDT SERUM ANTI-EXTRACTABLE NUCLEAR AG (JOSE ENRIQUE), SM/PHYSICS TECHNICIAN AB Routine 03/26/2015 5:00 PM CDT SERUM ANTICARDIOLIPIN AB, IGG, IGM Routine 03/26/2015 5:00 PM CDT SERUM ANTICARDIOLIPIN AB, IGA Routine 03/26/2015 5:00 PM CDT SERUM ANGIOTENSIN-CONVERTING ENZYME (NICOLÁS) Routine 03/26/2015 5:00 PM CDT PLASMA URIC ACID Routine 03/26/2015 5:00 PM CDT PLASMA LUPUS ANTICOAGULANT Routine 03/26/2015 5:00 PM CDT PLASMA CREATINE KINASE (CK) Routine 03/26/2015 5:00 PM CDT PLASMA C-REACTIVE PROTEIN Routine 03/26/2015 5:00 PM CDT PLASMA COMPREHENSIVE METABOLIC PANEL Routine 03/26/2015 5:00 PM CDT PLASMA COMPLEMENT C4 Routine 03/26/2015 5:00 PM CDT PLASMA COMPLEMENT C3 Routine 03/26/2015 5:00 PM CDT BLOOD HLA B-27 DNA TYPING Routine 03/26/2015 5:00 PM CDT BLOOD ERYTHROCYTE SEDIMENTATION RATE (ESR) Routine 03/26/2015 5:00 PM CDT BLOOD DIRECT ANTIGLOBULIN TEST Routine 03/26/2015 5:00 PM CDT BLOOD CELL COUNT (CBC), MORPHOLOGIC EXAM Routine 03/26/2015 5:00 PM CDT URINALYSIS Routine 03/26/2015 5:00 PM CDT DISCHARGE LABORATORY CUMULATIVE REPORT 03/26/2015 documented in this encounter Results * Serum rapid plasma reagin (RPR) (03/26/2015 5:00 PM CDT) RPR Non-reacti ve Non-reacti ve HISTORICAL RESULTS Serum 03/26/2015 5:00 PM CDT Yamilet Valerio [place] LAB BLOOD ORDERABLES Fin al Result Performing Organization Address [facility] de Phone Number HISTORICAL RESULTS * Blood HLA B-27 DNA typing (03/26/2015 5:00 PM CDT) Pathologist [facility] HLA-B27 ag B27 is Negative HISTORICAL RESULTS Comment: HLA oligotyping is determined utilizing polymerase chain reaction technology. ??Low resolution typing is performed using sequence specific primers (SSP) and Luminex based r-SSO. ??High resolution technology is performed using Ransom Sequenced Based Typing (SBT). ??SSP, Luminex rSSO and SBT are designated IVD by the U.S. Food and Drug Administration. Mark Cabrera Ph.D. Director, HLA Laboratory. Miscellaneous 03/26/2015 5:0 0 PM CDT [facility] LAB BLOOD ORDERABLES Fin al Result Performing Organization Address [facility] de Phone Number HISTORICAL RESULTS * Serum Hepatitis B core ab (03/26/2015 5:00 PM CDT) Pathologist [facility] HBV core ab Negative Negative HISTORIC AL RESULTS Serum 03/26/2015 5:00 PM CDT Result [facility] Talisha [facility] LAB BLOOD ORDERABLES Fin al Result Performing Organization Address [facility] de Phone Number HISTORICAL RESULTS * Serum anti-extractable nuclear ag (JOSE ENRIQUE), SS-B ab (03/26/2015 5:00 PM CDT) Pathologist [facility] Anti-JOSE ENRIQUE, SS-B <1.0 NEG <1.0NEG AI HISTORICAL RESULTS Comment: [facility] [address] [place], [place] ??[phone] ANA REYES DO,MPH Serum 03/26/2015 5:00 PM CDT Yamilet Valerio [place] LAB BLOOD ORDERABLES Fin al Result Performing Organization Address [facility] de Phone Number HISTORICAL RESULTS * Serum anti-extractable nuclear ag (JOSE ENRIQUE), SS-A ab (03/26/2015 5:00 PM CDT) Anti-JOSE ENRIQUE, SS-A <1.0 NEG <1.0NEG AI HISTORICAL RESULTS Comment: Test performed at [facility] [place] [id number] [place], [place] ??[phone] ANA REYES DO,MPH Serum 03/26/2015 5:00 PM CDT Yamilet Valerio [place] LAB BLOOD ORDERABLES Fin al Result Performing Organization Address [facility] de Phone Number HISTORICAL RESULTS * Serum antinuclear ab (SHAWN) (03/26/2015 5:00 PM CDT) Pathologist [facility] SHAWN, qual Negative NEGATIVE HISTORICAL RESULTS Comment: Test performed at [facility] [address] ??[phone] ANA REYES DO,MPH Serum 03/26/2015 5:00 PM CDT Yamilet Valerio [place] LAB BLOOD ORDERABLES Fin al Result Performing Organization Address [facility] de Phone Number HISTORICAL RESULTS * Serum anticardiolipin ab, IgG, IgM (03/26/2015 5:00 PM CDT) Cardiolipin, IgG 2.4 0.0 - 14.9 GPL U/ml HISTORICAL RESULTS Comment:Interpretive Data <1 5 GPL U/mL Negative 15-19 GPL U/mL Indeterminate 20- 39 GPL U/mL Low Positive 40-80 GPL U/mL Medium Positive >80 GPL U/mL High Positive Current interpretive data was last revised on 2010. Cardiolipin, IgM 4.6 0.0 - 12.4 MPL U/ml HISTORICAL RESULTS Comment: Interpretive Data <12.5 ?? MPL U/mL ?Negative 12.5-19 MPL U/mL ?Indeterminate 20-39 ?? MPL U/mL ?Low Positive 40-80 ?? MPL U/mL ?Medium Positive >80 ? MPL U/mL ?High Positive Anticardiolipin antibodies are associated with certain clinical events including arterial and venous thromboemboli, morbidity, and thrombocytopenia. ??However, detection of low levels of anticardiolipin antibodies occurs in both healthy individuals and patients with co-morbidities not associated with the antiphospholipid antibody (APA) syndrome including inflammatory and infectious conditions. ??In order to improve specificity, the International Congress on Antiphospholipid Antibodies recommends a threshold of > 40 GPL units for IgG ELISE and > 40 MPL units for IgM ELISE, obtained twice, at least 12 weeks apart, to support a diagnosis of antiphospholipid syndrome. ??In addition, the International Congress on Antiphospholipid Antibodies does not recommend testing for IgA ELISE since this isotype rarely occurs in the absence of IgG or IgM ELISE, and the association of an isolated IgA ELISE with APA clinical signs and symptoms is weak. ??The presence of rheumatoid factor may lead to false-positive IgM anticardiolipin results. ??The following results were obtained with the [employer] QUANTLiteTM IgG and IgM III ABRAHAM. ??Cardiolipin IgG and IgM values obtained with different manufacturers' assay methods may not be used interchangeably. Current interpretive data was last revised on 2010. Serum 03/26/2015 5:00 PM CDT Yamilet [facility] LAB BLOOD ORDERABLES Fin al Result HISTORICAL RESULTS * Serum anticardiolipin ab, IgA (03/26/2015 5:00 PM CDT) Cardiolipin, IgA 2.1 0.0 - 11.9 APL U/ml HISTORICAL RESULTS Comment: Interpretive Data <12 ?? APL U/mL ? Negative 12-19 APL U/mL ? Indeterminate 20-39 APL U/mL Low Positive 40-80 APL U/mL ? Medium Positive >80 ?? APL U/mL ? High Positive The International Congress on Antiphospholipid Antibodies does not recommend testing for IgA ELISE since this isotype rarely occurs in the absence of IgG or IgM ELISE, and the association of an isolated IgA ELISE with APA clinical signs and symptoms is weak. ??The following results were obtained with the [employer] QUANTLiteTM IgA III ABRAHAM. ??Caridolipin IgA values obtained with different manufacturers' assay methods may not be used interchangeably. Current interpretive data was last revised on 2010. <13 APL U/mL ?Antibody not detected > or = 13 and <30 APL U/mL ? Low positive antibody detected 30 - 80 APL U/mL ? Medium positive antibody detected >80 APL U/mL ?High positive antibody detected Current interpretive data was last revised on 2009. Serum 03/26/2015 5:00 PM CDT Yamilet Valerio [place] LAB BLOOD ORDERABLES Fin al Result Performing Organization Address [facility] de Phone Number HISTORICAL RESULTS * Serum anti-extractable nuclear ag (JOSE ENRIQUE), SM/PHYSICS TECHNICIAN ab (03/26/2015 5:00 PM CDT) Pathologist [facility] Anti-JOSE ENRIQUE, SM <1.0 NEG <1.0NEG AI HISTORICAL RESULTS JOSE ENRIQUE, SM/PHYSICS TECHNICIAN Ab <1.0 NEG <1.0NEG AI HISTORICAL RESULTS Comment: Test performed at [facility] [address] [place], [place] ??[phone] ANA REYES DO,MPH Serum 03/26/2015 5:00 PM CDT Yamilet Valerio [place] LAB BLOOD ORDERABLES Fin al Result Performing Organization Address [facility] de Phone Number HISTORICAL RESULTS * Serum Trinidad-1 ab (03/26/2015 5:00 PM CDT) Pathologist [facility] Anti-TRINIDAD-1 <1.0 NEG <1.0NEG AI HISTORICAL RESULTS Comment: Test performed at [facility] [employer] [address] ??[phone] ANA REYES DO,MPH Serum 03/26/2015 5:00 PM CDT Yamilet Woodall [place] LAB BLOOD ORDERABLES Fin al Result Performing Organization Address [facility] de Phone Number HISTORICAL RESULTS * Serum double-stranded DNA ab (03/26/2015 5:00 PM CDT) [facility] Anti-double stranded DNA, quant 2 IUnits/ml HISTORIC AL RESULTS Comment: IU/mL ? Interpretation ? < or = 4 ?Negative ? 5-9 ? Indeterminate ? > or = 10 ?? Positive Test performed at [facility] [address] ??[phone] ANA REYES DO,MPH Serum 03/26/2015 5:00 PM CDT Yamilet Woodall [place] LAB BLOOD ORDERABLES Fin al Result Performing Organization Address [facility] de Phone Number HISTORICAL RESULTS * Serum paqw-4-ouuriwrmlecp I IgM (03/26/2015 5:00 PM CDT) [facility] Beta-2 glycoprotein I, IgM <4.0 <10.0(Nega tive) Units/ml HISTORICAL RESULTS Beta-2 glycoprotein I, IgG <4.0 <10.0(Nega tive) Units/ml HISTORICAL RESULTS Serum 03/26/2015 5:00 PM CDT Yamilet Shuklaricky [place] LAB BLOOD ORDERABLES Fin al Result Performing Organization Address [facility] de Phone Number HISTORICAL RESULTS * (ABNORMAL) Serum angiotensin-converting enzyme (NICOLÁS) (03/26/2015 5:00 PM CDT) NICOLÁS 8(L) 10 - 55 Units/L HISTORICAL RESULTS Serum 03/26/2015 5:00 PM CDT Result [facility] Yamilet Hernándezeaston [place] LAB BLOOD ORDERABLES Fin al Result Performing Organization Address [facility] de Phone Number HISTORICAL RESULTS * Plasma lupus anticoagulant (03/26/2015 5:00 PM CDT) Prothrombin time (PT) 10.7 9.2 - 13.0 seconds HISTORICAL RESULTS INR 0.99 0.90 - 1.20 HISTORICAL RESULTS Comment: Interpretive Data Inpatient therapeutic ranges* Atrial fibrillation ?2.0-3.0 INR Venous thrombo-embolism ?2.0- 3.0 INR Bioprosthetic heart valve ?* Mechanical heart valve, bileaflet or tilting disk,aortic position ? 2.0-3.0 INR All other,or bileaflet or tilting disk, in mitral position ? 2.5-3.5 INR *See the pharmacy resource directory (PHRED) for an updated copy of the Tool Book at [email or web address] Current Interpretive Data was last revised 2011. APTT 31.6 25.0 - 37.0 seconds HISTORICAL RESULTS Comment:Interpretive Data Th erapeutic heparin range:60.0 - 94.0 sec based on correlation with therapeutic heparin activity range of 0.3 -0.7 Units/mL. Current interpretive data was last revised on 2011. PTT 28.8 <=45.0 seconds HISTORICAL RESULTS Lupus anticoagulant, DRVVT, screen ratio 1.06 0.00 - 1.20 ratio HISTORICAL RESULTS Lupus anticoagulant, phospholipid neutralization Negative HISTORICAL RESULTS Comment: Lupus Anticoagulant Interpretation: Lupus anticoagulants (LA) are acquired autoantibodies that interfere with invitro clotting in a phospholipid-dependent manner. Routine aPTT reagents are not sensitive to inhibition by LA, and should not be used as a screening test. ??The laboratory follows ISTH 2009 guidelines (Pengo,2009) for LA testing and interpretation: Two sensitive methods performed in parallel improve sensitivity. One activates the intrinsic pathway (LA-PTT) and one activates the common pathway (dilute Chirag Venom Time dRVVT). Each method begins with a screening step, and if not prolonged for both tests, no further testing is performed and the interpretation is: NO LA DETECTED. If either screening test is prolonged, then additional steps are performed to provide specificity. A POSITIVE occurs if either or both tests produce a positive confirm result. To support a clinical suspicion of antiphospholipid syndrome, persistence of a positive LA result should be confirmed by repeated testing at least 12 weeks later (Barry, 2006). An INDETERMINATE result indicates LA cannot be confirmed or ruled out due to the possible presence of anticoagulant effect, factor deficiency, very weak LA, or factor inhibitors. FALSE POSITIVE causes of LA include autoantibodies to specific factors and IV or PO directed anticoagulants, both associated with increased bleeding. Clinical correlation required. References:1) Salazar V, Valerie A, Jeanette JH, Orkatja TL, Jonny M, De Terrell PG. Update of the guidelines for lupus anticoagulant detection. J Thromb Haemost. 2009;7:1737- 1740. 2) Barry S. et al. International consensus statement on an update of the classification criteria for definite antiphospholipid syndrome (APS). J Thromb Haemost. 2006;4:295-306. Current interpretive data was last revised on 2014 Plasma 03/26/2015 5:00 PM CDT Yamilet [facility] LAB BLOOD ORDERABLES Fin al Result Performing Organization Address [facility] de Phone Number HISTORICAL RESULTS * Serum Pziv-4-wwcyddugnkif I, IgA (03/26/2015 5:00 PM CDT) [facility] Beta-2 glycoprotein I, IgA <4.0 <10.0(Nega tive) Units/ml HISTORICAL RESULTS Serum 03/26/2015 5:00 PM CDT Result [facility] Yamilet Calixchase [place] LAB BLOOD ORDERABLES Fin al Result Performing Organization Address [facility] de Phone Number HISTORICAL RESULTS * Serum rheumatoid factor (03/26/2015 5:00 PM CDT) Pathologist [facility] Rheumatoid factor, quant 10 <14 IUnits/ml HISTORICAL RESULTS Comment: Test performed at [facility] [address] ??[phone] ANA REYES DO,MPH Serum 03/26/2015 5:00 PM CDT Result [facility] LAB BLOOD ORDERABLES Fin al Result Performing Organization Address [facility] Phone Number HISTORICAL RESULTS * Serum cyclic citrullinated peptide IgG 3rd generation (03/26/2015 5:00 PM CDT) [facility] CCP3 IgG <15.6 0.0 - 19.0 units HISTORICAL RESULTS Comment: Interpretive Data The following results were obtained with the [employer] Quanta Lite CCP3 IgG ABRAHAM. ??Anti-CCP values obtained with the different manufacturers' assay methods may not be used interchangeably. The magnitude of the reported IgG levels cannot be correlated to an endpoint titer. Reference ?Result Interpretation ??0-19 Units ? Negative 20-39 Units ? Weak Positive 40-59 Units ? Moderate Positive 60 or above Units ?? Strong Positive Current interpretive data was last revised on 2006. Serum 03/26/2015 5:00 PM CDT Yamilet Valerio [place] LAB BLOOD ORDERABLES Fin al Result Performing Organization Address [facility] de Phone Number HISTORICAL RESULTS * (ABNORMAL) Serum complement (03/26/2015 5:00 PM CDT) Complement hemolytic 161(H) 63 - 145 HISTORICAL RESULTS Serum 03/26/2015 5:00 PM CDT Yamilet Valerio [place] LAB BLOOD ORDERABLES Fin al Result Performing Organization Address [facility] de Phone Number HISTORICAL RESULTS * (ABNORMAL) Blood erythrocyte sedimentation rate (ESR) (03/26/2015 5:00 PM CDT) Pathologist [facility] Erythrocyte sedimentation rate 16.0(H) 0.0 - 10.0 mm/hr HISTORICAL RESULTS Blood specimen (specimen) 03/26/2015 5:00 PM CDT Yamilet Valerio [place] LAB BLOOD ORDERABLES Fin al Result Performing Organization Address [facility] de Phone Number HISTORICAL RESULTS * (ABNORMAL) Blood cell count (CBC), morphologic exam (03/26/2015 5:00 PM CDT) WBC 5.7 4.5 - 11.0 K/cumm HISTORICAL RESULTS RBC 3.79(L) 4.50 - 6.20 M/cumm HISTORICAL RESULTS Hgb 10.9(L) 13.0 - 17.0 g/dl HISTORICAL RESULTS Hct 32.9(L) 39.0 - 52.0 % HISTORICAL RESULTS MCV 86.8 80.0 - 100.0 fl HISTORICAL RESULTS MCH 28.9 27.0 - 33.0 pg HISTORICAL RESULTS MCHC 33.3 32.0 - 36.0 g/dl HISTORICAL RESULTS Rdw 13.9 11.5 - 14.5 % HISTORICAL RESULTS Platelets 235 140 - 400 K/cumm HISTORICAL RESULTS MPV 8.5 7.4 - 10.4 fl HISTORICAL RESULTS Neutrophils 54.1 42.0 - 75.0 % HISTORICAL RESULTS Lymphocytes 36.9 21.0 - 51.0 % HISTORICAL RESULTS Monos 5.7 2.0 - 9.0 % HISTORICAL RESULTS Eosinophils 2.9 0.0 - 10.0 % HISTORICAL RESULTS Basophils 0.4 0.0 - 1.0 % HISTORICAL RESULTS Neutrophils, abs 3.1 1.8 - 7.7 K/cumm HISTORICAL RESULTS Lymphocytes, abs 2.1 1.0 - 4.8 K/cumm HISTORICAL RESULTS Monocytes, absolute 0.3 0.0 - 0.8 K/cumm HISTORICAL RESULTS Eosinophils, abs 0.2 0.0 - 0.5 K/cumm HISTORICAL RESULTS Basophils, abs 0.0 0.0 - 0.2 K/cumm HISTORICAL RESULTS Blood specimen (specimen) 03/26/2015 5:00 PM CDT [facility] Talisha Hernándezmericky [place] LAB BLOOD ORDERABLES Fin al Result Performing Organization Address [facility] de Phone Number HISTORICAL RESULTS * (ABNORMAL) Urinalysis (03/26/2015 5:00 PM CDT) Color, ur Yellow Colorless,St raw,Yellow HISTORICAL RESULTS Clarity, ur Clear Clear HISTORIC AL RESULTS Specific gravity, ur 1.005 1.005 - 1.030 HISTORICAL RESULTS pH, ur 5.0 5.0 - 8.0 HISTORICAL RESULTS Leukocyte esterase, ur Negative Negative nayeli/mcl HISTORICAL RESULTS Nitrites, ur Negative Negative HISTORI DOMINICK RESULTS Protein, ur 30(A) Negative mg/dl HISTORICAL RESULTS Glucose, ur, quant 150(A) Normal mg/dl HISTORICAL RESULTS Ketones, ur, quant Negative Negative mg/dl HISTORICAL RESULTS Urobilinogen, quant, ur Normal Normal mg/dl HISTORICAL RESULTS Bilirubin, ur Negative Negative mg/dl HISTORICAL RESULTS U Blood Negative Negative HISTORICAL RESULTS Urine 03/26/2015 5:00 PM CDT [facility] Talisha Valerio [place] LAB BLOOD ORDERABLES Fin al Result Performing Organization Address [facility] de Phone Number HISTORICAL RESULTS * (ABNORMAL) Urine microscopy (03/26/2015 5:00 PM CDT) RBC, ur 3 - 5(A) 0 - 2 /hpf HISTORICAL RESULTS Bacteria, ur Trace /hpf HISTORI DOMINICK RESULTS Epithelial cells, squamous, ur 3 - 5 /lpf HISTORICAL RESULTS Mucus, ur Trace /lpf HISTORICAL RESULTS Hyaline casts Too numerous to count. /lpf HISTORICAL RESULTS Urine 03/26/2015 5:00 PM CDT Result [facility] Yamilet Calix[place]ase [place] LAB BLOOD ORDERABLES Fin al Result Performing Organization Address [facility] de Phone Number HISTORICAL RESULTS * Serum Hepatitis B surface ag (03/26/2015 5:00 PM CDT) HBV surface ag Non-Reacti ve Non-Reacti ve HISTORICAL RESULTS Serum 03/26/2015 5:00 PM CDT Result [facility] Yamilet Shuklaricky [place] LAB BLOOD ORDERABLES Fin al Result Performing Organization Address [facility] de Phone Number HISTORICAL RESULTS * Serum Hepatitis C ab (03/26/2015 5:00 PM CDT) HCV ab Non-Reacti ve Non-Reacti ve HISTORICAL RESULTS Serum 03/26/2015 5:00 PM CDT Result [facility] Yamilet Shuklaricky [place] LAB BLOOD ORDERABLES Fin al Result Performing Organization Address [facility] de Phone Number HISTORICAL RESULTS * (ABNORMAL) Plasma comprehensive metabolic panel (03/26/2015 5:00 PM CDT) Sodium 136 136 - 146 mmol/L HISTORICAL RESULTS K, pl 4.4 3.3 - 4.9 mmol/L HISTORICAL RESULTS Chloride 101 98 - 108 mmol/L HISTORICAL RESULTS CO2 20(L) 22 - 33 mmol/L HISTORICAL RESULTS BUN 69(H) 7 - 18 mg/dl HISTORICAL RESULTS Glucose 226(H) 70 - 140 mg/dl HISTORICAL RESULTS Comment: Glucose is assumed to be non-fasting. ?? Fasting Glucose normal ranges are: 0 days - 2 months: ? 40 mg/dL - 100 mg/dL 2 months - 999 years: ?70 mg/dL - 99 mg/dL Creatinine 2.49(H) 0.50 - 1.50 mg/dl HISTORICAL RESULTS eGFR 28 ml/min/1.7 3 m2 HISTORICAL RESULTS Comment: GFR Reference Range: = > 60 mL/min/1.73 m2 This result has been calculated assuming the patient is Non-. ??If the patient is , please multiply this result by 1.21. The GFR value is not recommended for medication dose adjustment for renal function, creatinine clearance values should be used. Calcium 8.9 8.5 - 10.5 mg/dl HISTORICAL RESULTS Bilirubin 0.7 0.1 - 1.2 mg/dl HISTORICAL RESULTS Protein, pl 7.3 6.0 - 8.5 g/dl HISTORICAL RESULTS Alb 3.9 3.4 - 5.0 g/dl HISTORICAL RESULTS Alk phos 124 38 - 126 IUnits/L HISTORICAL RESULTS ALT 32 17 - 63 IUnits/L HISTORICAL RESULTS AST 32 15 - 41 IUnits/L HISTORICAL RESULTS Plasma 03/26/2015 5:00 PM CDT [facility]t [facility] LAB BLOOD ORDERABLES Fin al Result HISTORICAL RESULTS * (ABNORMAL) Plasma C-reactive protein (03/26/2015 5:00 PM CDT) C-RP 19.4(H) 0.00 - 10.00 mg/L HISTORICAL RESULTS Comment:Please Note: As of 0 09/27/2011, C-Reactive Protein testing is performed at [facility]. The Reference Range has changed. Plasma 03/26/2015 5:00 PM CDT Yamilet [facility] LAB BLOOD ORDERABLES Fin al Result HISTORICAL RESULTS * Plasma creatine kinase (CK) (03/26/2015 5:00 PM CDT) CK 297 49 - 397 IUnits/L HISTORICAL RESULTS Plasma 03/26/2015 5:00 PM CDT Yamilet Shuklaricky [facility] LAB BLOOD ORDERABLES Fin al Result Performing Organization Address [facility] Phone Number HISTORICAL RESULTS * (ABNORMAL) Plasma complement C4 (03/26/2015 5:00 PM CDT) Complement C4 78(H) 18 - 55 mg/dl HISTORICAL RESULTS Comment:Please Note: As of N 2011, the reference range has changed. Plasma 03/26/2015 5:00 PM CDT Yamilet Calixchase [facility] LAB BLOOD ORDERABLES Fin al Result Performing Organization Address [facility] Phone Number HISTORICAL RESULTS * (ABNORMAL) Plasma uric acid (03/26/2015 5:00 PM CDT) Uric acid 12.3(H) 3.5 - 8.5 mg/dl HISTORICAL RESULTS Plasma 03/26/2015 5:00 PM CDT Result [facility] Yamilet Shuklaricky [facility] LAB BLOOD ORDERABLES Fin al Result Performing Organization Address [facility] Phone Number HISTORICAL RESULTS * Plasma complement C3 (03/26/2015 5:00 PM CDT) Complement C3 140 79 - 152 mg/dl HISTORICAL RESULTS Plasma 03/26/2015 5:00 PM CDT Result [facility] Yamilet Woodall Iman [facility] LAB BLOOD ORDERABLES Fin al Result Performing Organization Address [facility] de Phone Number HISTORICAL RESULTS * Blood direct antiglobulin test (03/26/2015 5:00 PM CDT) Maribel, direct, IgG Negative HISTORICAL RESULTS Maribel, direct, complement Negative HISTORICAL RESULTS Blood specimen (specimen) 03/26/2015 5:00 PM CDT Result [facility] Yamilet Woodall Iman [facility] LAB BLOOD ORDERABLES Fin al Result HISTORICAL RESULTS * DISCHARGE LABORATORY CUMULATIVE REPORT (03/26/2015) Narrative 03/26/2015 Ordered by an unspecified provider. us Historical Provider LAB BLOOD ORDERABLES Ann Marie l Result documented in this encounter Visit Diagnoses Diagnosis Arthropathy Unspecified arthropathy, site unspecified documented in this encounter Care Teams Retail Brand Ambassador Relationship Specialty Start Date End Date Jhonatan Bellamy MD [address] [place], [place] [id number] PCP - General 03/25/15 04/16/18 documented as of this encounter
--- OUTSIDE RECORDS SUMMARY | 2024-08-18 13:15 | XMS_ITS | Encounter Summary ---
Author Organization [facility] Address [address] [address] Care Team Providers Care Computer Technology Instructor Name Role Phone Jhonatan Bellamy MD Primary Care Provider +1- [phone] Encounter Details Date Type Department Care Team (Late st Contact Info) Description 07/25/2017 Telephone [facility] [address] [address] Abelardo Petit MD [address] [facility] [address] [address] Social History Tobacco Use Types Packs/Day Years Used Date Smoking Tobacco: Never Smokeless Tobacco: Former Alcohol Use Standard Drinks/Week Comments No 0 (1 standard drink = 0.6 oz pur e alcohol) Sex and Gender Information Value Date Recorded Sex Assigned at Not on file Legal Sex Male 3:42 AM ELIGIBILITY MANAGER Gender Identity Not on file Sexual Orientation Not on file documented as of this encounter Miscellaneous Notes * Telephone Encounter - Lisa Diaz RN - 07/25/2017 11:04 AM CST told pt that RTW note will be at the front end wheel loader operator for pickup. IBILITY MANAGER * Telephone Encounter - Constance Magana MA - 07/25/2017 10:40 AM ELIGIBILITY MANAGER Pt calling about fitness for duty form, wants to come by and pick it up, and wants to know if he has any restrictions, pt can be reached at [phone] IBILITY MANAGER documented in this encounter Plan of Treatment Not on file documented as of this encounter Visit Diagnoses Not on filedocumented in this encounter Care Teams Computer Technology Instructor Relationship Specialty Start Date End Date Jhonatan Bellamy MD [address] [place], [place] [id number] PCP - General 03/25/15 04/16/18 documented as of this encounter
--- OUTSIDE RECORDS SUMMARY | 2024-08-18 13:15 | XMS_ITS | Encounter Summary ---
Author Organization [facility] Address [address] [address] Care Team Providers Care Zipper Repairer Name Role Phone Jhonatan Bellamy MD Primary Care Provider +1- [phone] Encounter Details Date Type Department Care Team (Late st Contact Info) Description 07/31/2017 Telephone [facility] [address] [phone] Abelardo Petit MD 6810 [facility] [address] [address] Social History Tobacco Use Types Packs/Day Years Used Date Smoking Tobacco: Never Smokeless Tobacco: Former Alcohol Use Standard Drinks/Week Comments No 0 (1 standard drink = 0.6 oz pur e alcohol) Sex and Gender Information Value Date Recorded Sex Assigned at Not on file Legal Sex Male 3:42 AM GENERAL INTERNAL MEDICINE PHYSICIAN Gender Identity Not on file Sexual Orientation Not on file documented as of this encounter Miscellaneous Notes * Telephone Encounter - Anel Hudson MA - 07/31/2017 5:11 PM CST Called pharmacy to see what medication the patient needs refilled. Gave authorization to refill furosemide 40 mg twice daily, #60 with 5 additional refills. RAL INTERNAL MEDICINE PHYSICIAN * Telephone Encounter - Elsie Holly RN - 07/31/2017 4:09 PM GENERAL INTERNAL MEDICINE PHYSICIAN Will forward to MA's RAL INTERNAL MEDICINE PHYSICIAN documented in this encounter Plan of Treatment Not on file documented as of this encounter Visit Diagnoses Not on filedocumented in this encounter Care Teams Zipper Repairer Relationship Specialty Start Date End Date Jhonatan Bellamy MD [address] [place] [address] PCP - General 03/25/15 04/16/18 documented as of this encounter
--- OUTSIDE RECORDS SUMMARY | 2024-08-18 13:15 | XMS_ITS | Encounter Summary ---
Author Organization [facility] Address [address] [address] Care Team Providers Care Workers Compensation Attorney Name Role Phone Jhonatan Bellamy MD Primary Care Provider +1- [phone] Encounter Details Date Type Department Care Team (Late st Contact Info) Description 06/09/2017 Telephone [facility] [address] [address] Abelardo Petit MD 6810 [facility] [address] [address] Social History Tobacco Use Types Packs/Day Years Used Date Smoking Tobacco: Never Smokeless Tobacco: Former Alcohol Use Standard Drinks/Week Comments No 0 (1 standard drink = 0.6 oz pur e alcohol) Sex and Gender Information Value Date Recorded Sex Assigned at Not on file Legal Sex Male 3:42 AM CONVENTION PLANNER Gender Identity Not on file Sexual Orientation Not on file documented as of this encounter Miscellaneous Notes * Telephone Encounter - Anel Hudson MA - 06/09/2017 12:15 PM CDT Refills have already been sent to pharmacy. documented in this encounter Plan of Treatment Not on file documented as of this encounter Visit Diagnoses Not on filedocumented in this encounter Care Teams Workers Compensation Attorney Relationship Specialty Start Date End Date Jhonatan Bellamy MD [address] [place] [address] PCP - General 03/25/15 04/16/18 documented as of this encounter
--- OUTSIDE RECORDS SUMMARY | 2024-08-18 13:15 | XMS_ITS | Encounter Summary ---
Author Organization [facility] Medical [facility] Address [address] [facility] [address] [place] [address] Care Team Providers Care Asphalt Tile Floor Layer Name Role Phone Jhonatan Bellamy MD Primary Care Provider +1- [phone] Reason for Visit * Reason Comments Follow-up 2-3 week follow up o n CAD Encounter Details Date Type Department Care Team (Late st Contact Info) Description 05/23/2017 9:45 AM CDT Office Visit [facility] [address] [place] [phone] Abelardo Petit MD 6810 [facility] [address] [id number] 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 (CMS/HCC) (Primary Dx); History of coronary artery stent placement Social History Tobacco Use Types Packs/Day Years Used Date Smoking Tobacco: Never Smokeless Tobacco: Former Alcohol Use Standard Drinks/Week Comments No 0 (1 standard drink = 0.6 oz pur e alcohol) Sex and Gender Information Value Date Recorded Sex Assigned at Not on file Legal Sex Male 3:42 AM DECISION SUPPORT ANALYST Gender Identity Not on file Sexual Orientation Not on file documented as of this encounter Last Filed Vital Signs Vital Sign Reading Time Taken Comments Blood Pressure 160/66 05/23/2017 9:51 AM CDT Pulse 72 05/23/2017 9:51 AM CDT Temperature - - Respiratory Rate 16 05/23/2017 9:51 AM CDT Oxygen Saturation - - Inhaled Oxygen Concentration - - Weight 123.8 kg (273 lb) 05/23/2017 9:51 AM CDT Height 177.8 cm (5' 10 ) 05/23/2017 9:51 AM CDT Body Mass Index 39.17 05/23/2017 9:51 AM CDT documented in this encounter Progress Notes * Abelardo Petit MD - 05/23/2017 9:45 AM CDT [facility] FOLLOW UP 05/23/2017 Juvenal Daigle is a 46 y.o. male who presents for follow up of coronary artery disease. This is apatient with a history of recently diagnosed coronary disease in March of 2017. He presented with ischemic chest pain and had enzyme evidence of a non ST elevation MS. He underwent catheterization and was found to have a high-grade stenosis in the distal right coronary artery bridging over the origin of his elect equip maint eng lateral branch. He also has diffuse non flow limiting disease elsewhere. There shimon 80% ostial stenosis of a very small 1st marginal branch of his circumflex which is being treatedmedically. The patient's other comorbidities include hypertension advanced chronic kidney disease and longstanding diabetes. He has significant anemia of chronic disease as well. The patient was rehospitalized at [facility] in April of 2017 with some dyspnea and chest pain. His medications were adjusted we primarily shifted him from metoprolol to car to carvedilol for his beta-umair as he does have and mild element of ischemic LV dysfunction he also was seen by Nephrology and Hematology. The patient's hemoglobin was as low as 7.4 during the hospitalization and he was treated with IV iron by Dr. Schmid and he plans to follow up with the patient as well. He has been continued of course on dual anti-platelet therapy. Also because of a history of DVT diagnosed at the same time he is systemically anticoagulated with apixaban. The He returns today but today to the office for follow-up and generally is doing well most of the office appointment was spent discussing with the patient and his mother about his ability to return to work. 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 At the end of the discussion it was decided that we would try to return him to work in about 1 month. He has been through a lot and we would like him to have a little more time to recover before he attempted to go back to a job that does require a fair amount of manual exertion. I will see him before the end of the month of May to have 1 more follow-up visit before we make that decision. If he is not capable of working ofcourse he may have to consider find a filing for disability. REVIEW OF SYSTEMS General ROS: negative for [...] rash HOME MEDICATIONS Current Outpatient Prescriptions: ??? apixaban (ELIQUIS) 5 mg tablet, Take 1 tablet (5 mg total) by mouth 2 (two) times a day., Disp:180 tablet, Rfl: 0 ??? aspirin 81 mg tablet, Take 81 [...] ??? clopidogrel (PLAVIX) 75 mg tablet, Take 1 tablet (75 mg total) by mouth daily., Disp: 90 tablet, Rfl: 1 ??? colchicine [...] times a day., Disp: , Rfl: ??? insulin glargine (LANTUS) 100 unit/mL injection, [...] (IMDUR) 60 mg 24 hr tablet, Take 60 mg by mouth daily., Disp: , Rfl: ??? nitroglycerin (NITROSTAT) 0.4 mg SL tablet, [...] ??? terazosin (HYTRIN) 2 mg capsule, Take 2 mg by mouth nightly., Disp: , Rfl: ??? amLODIPine (NORVASC) 5 mg tablet, Take 2 tablets (10 mg total) by mouth daily. (Patient not taking: Reported on 05/23/2017 ), Disp: 90 tablet, Rfl: 1 ??? metoprolol (LOPRESSOR) 100 mg tablet, Take 100 mg by mouth 2 (two) times a day., Disp: , Rfl: LABS AND OTHER DIAGNOSTIC TESTS Lab Results [...] exists for component: LABALBU PHYSICAL EXAM Vitals: 05/23/17 0951 BP: 160/66 Pulse: 72 Resp: 16 Physical Examination: General appearance - alert, well [...] noted ASSESSMENT Juvenal was seen today for follow-up. 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 insulin lispro (HumaLOG) 100 unit/mL injection Inject under the skin 3 (three) times a day before meals. 01/20/2021 insulin glargine (LANTUS) 100 unit/mL injection Inject under the skin nightly. 01/20/2021 terazosin (HYTRIN) 2 mg capsule Take 2 mg by mouth nightly. 06/09/2017 carvedilol (COREG) 25 mg tablet Take 25 mg by mouth 2 (two) times a day with meals. 03/24/2018 isosorbide mononitrate ER (IMDUR) 60 mg 24 hr tablet Take 60 mg by mouth daily. 05/23/2017 isosorbide mononitrate ER (IMDUR) 30 mg 24 hr tablet Take 30 mg by mouth daily. 03/16/2018 added in this encounter Care Teams Asphalt Tile Floor Layer Relationship Specialty Start Date End Date Jhonatan Bellamy MD [address] [place] [address] [place] [address] PCP - General 03/25/15 04/16/18 documented as of this encounter
--- OUTSIDE RECORDS SUMMARY | 2024-08-18 13:15 | XMS_ITS | Encounter Summary ---
Author Organization [facility] Address [address] [address] Care Team Providers Care Registered Veterinary Technician Name Role Phone Jhonatan Bellamy MD Primary Care Provider +1- [phone] Encounter Details Date Type Department Care Team (Late st Contact Info) Description 07/20/2017 Telephone [facility] [address] [phone] Abelardo Petit MD 6810 [facility] [address] [address] Social History Tobacco Use Types Packs/Day Years Used Date Smoking Tobacco: Never Smokeless Tobacco: Former Alcohol Use Standard Drinks/Week Comments No 0 (1 standard drink = 0.6 oz pur e alcohol) Sex and Gender Information Value Date Recorded Sex Assigned at Not on file Legal Sex Male 3:42 AM FRUIT AND VEGETABLE CLASSER Gender Identity Not on file Sexual Orientation Not on file documented as of this encounter Miscellaneous Notes * Telephone Encounter - Lisa Diaz RN - 07/20/2017 2:49 PM CST Pt will call backw ith where to send his fitness for duty form. T AND VEGETABLE CLASSER * Telephone Encounter - Lisa Diaz RN - 07/20/2017 2:48 PM CST told pt I have his daughter's FMLa paperwork for intermittent leave. Will complete and ffax as soonas possible. T AND VEGETABLE CLASSER documented in this encounter Plan of Treatment Not on file documented as of this encounter Visit Diagnoses Not on filedocumented in this encounter Care Teams Registered Veterinary Technician Relationship Specialty Start Date End Date Jhonatan Bellamy MD [address] [place] [address] PCP - General 03/25/15 04/16/18 documented as of this encounter
--- OUTSIDE RECORDS SUMMARY | 2024-08-18 13:15 | XMS_ITS | Encounter Summary ---
Author Organization [facility] Address [address] [address] Care Team Providers Care Burnt Lime Drawer Name Role Phone Jhonatan Bellamy MD Primary Care Provider +1- [phone] Encounter Details Date Type Department Care Team (Late st Contact Info) Description 07/05/2017 Telephone [facility] [address] [address] Abelardo Petit MD 6810 [facility] [address] [address] Social History Tobacco Use Types Packs/Day Years Used Date Smoking Tobacco: Never Smokeless Tobacco: Former Alcohol Use Standard Drinks/Week Comments No 0 (1 standard drink = 0.6 oz pur e alcohol) Sex and Gender Information Value Date Recorded Sex Assigned at Not on file Legal Sex Male 3:42 AM AGRICULTURE INTERNSHIP Gender Identity Not on file Sexual Orientation Not on file documented as of this encounter Miscellaneous Notes * Telephone Encounter - Lisa Diaz RN - 07/05/2017 3:18 PM CST Told pt the his forms are complete and have been faxed. CULTURE INTERNSHIP documented in this encounter Plan of Treatment Not on file documented as of this encounter Visit Diagnoses Not on filedocumented in this encounter Care Teams Burnt Lime Drawer Relationship Specialty Start Date End Date Maleonelh, Jhonatan E., MD [address] [place] [place] [address] PCP - General 03/25/15 04/16/18 documented as of this encounter
--- OUTSIDE RECORDS SUMMARY | 2024-08-18 13:15 | XMS_ITS | Encounter Summary ---
Author Organization [facility] Address [address] [address] Care Team Providers Care Boat Loader Name Role Phone Jhonatan Bellamy MD Primary Care Provider +1- [phone] Encounter Details Date Type Department Care Team (Late st Contact Info) Description 08/28/2017 Telephone [facility] [address] [address] Abelardo Petit MD [address] [facility] [address] [address] Social History Tobacco Use Types Packs/Day Years Used Date Smoking Tobacco: Never Smokeless Tobacco: Former Alcohol Use Standard Drinks/Week Comments No 0 (1 standard drink = 0.6 oz pur e alcohol) Sex and Gender Information Value Date Recorded Sex Assigned at Not on file Legal Sex Male 3:42 AM AIRLINE PILOT FLIGHT INSTRUCTOR Gender Identity Not on file Sexual Orientation Not on file documented as of this encounter Miscellaneous Notes * Telephone Encounter - Lisa Diaz RN - 08/28/2017 2:28 PM CST Told pt that paperwork will be at the help desk specialist. INE PILOT FLIGHT INSTRUCTOR documented in this encounter Plan of Treatment Not on file documented as of this encounter Visit Diagnoses Not on filedocumented in this encounter Care Teams Boat Loader Relationship Specialty Start Date End Date Jhonatan Bellamy MD [address] [place] [address] PCP - General 03/25/15 04/16/18 documented as of this encounter
--- OUTSIDE RECORDS SUMMARY | 2024-08-18 13:15 | XMS_ITS | Encounter Summary ---
Author Organization [facility] Address [address] [address] Care Team Providers Care Painter Tumbling Barrel Name Role Phone Jhonatan Bellamy MD Primary Care Provider +1- [phone] Encounter Details Date Type Department Care Team (Late st Contact Info) Description 08/11/2017 Telephone [facility] [address] [phone] Abelardo Petit MD 6810 [facility] [address] [address] Social History Tobacco Use Types Packs/Day Years Used Date Smoking Tobacco: Never Smokeless Tobacco: Former Alcohol Use Standard Drinks/Week Comments No 0 (1 standard drink = 0.6 oz pur e alcohol) Sex and Gender Information Value Date Recorded Sex Assigned at Not on file Legal Sex Male 3:42 AM FIXED WING PILOT Gender Identity Not on file Sexual Orientation Not on file documented as of this encounter Miscellaneous Notes * Telephone Encounter - Lisa Diaz RN - 08/11/2017 9:12 AM CST Noted D WING PILOT documented in this encounter Plan of Treatment Not on file documented as of this encounter Visit Diagnoses Not on filedocumented in this encounter Care Teams Painter Tumbling Barrel Relationship Specialty Start Date End Date Jhonatan Bellamy MD [address] [place] [address] PCP - General 03/25/15 04/16/18 documented as of this encounter
--- OUTSIDE RECORDS SUMMARY | 2024-08-18 13:15 | XMS_ITS | Encounter Summary ---
Author Organization [facility] Address [address] [address] Care Team Providers Care Senior Electrical Engineer Name Role Phone Jhonatan Bellamy MD Primary Care Provider +1- [phone] Encounter Details Date Type Department Care Team (Late st Contact Info) Description 08/01/2017 Telephone [facility] [address] [address] Abelardo Petit MD 6810 [facility] [address] [address] Social History Tobacco Use Types Packs/Day Years Used Date Smoking Tobacco: Never Smokeless Tobacco: Former Alcohol Use Standard Drinks/Week Comments No 0 (1 standard drink = 0.6 oz pur e alcohol) Sex and Gender Information Value Date Recorded Sex Assigned at Not on file Legal Sex Male 3:42 AM COUNTER POCKET SEWER Gender Identity Not on file Sexual Orientation Not on file documented as of this encounter Miscellaneous Notes * Telephone Encounter - Lisa Diaz RN - 08/01/2017 10:07 AM CST Asked pt about the last date he worked to complete STD/LTD forms. TER POCKET SEWER documented in this encounter Plan of Treatment Not on file documented as of this encounter Visit Diagnoses Not on filedocumented in this encounter Care Teams Senior Electrical Engineer Relationship Specialty Start Date End Date Malench, Jhonatan E., MD [address] [place] [address] PCP - General 03/25/15 04/16/18 documented as of this encounter
--- OUTSIDE RECORDS SUMMARY | 2024-08-18 13:15 | XMS_ITS | Encounter Summary ---
Author Organization [facility] Healthcare Address [address] [place] [address] Care Team Providers Care Sewage Disposal Worker Name Role Phone Jhonatan Bellamy MD Primary Care Provider [phone]- [phone] Encounter Details Date Type Department Care Team (Latest Contact Info) Description 09/19/2017 1:57 PM WEB APPLICATIONS ADMINISTRATOR - 09/19/2017 7:29 PM WEB APPLICATIONS ADMINISTRATOR Hospital Encounter [facility] Emergency Department [address] [place] [address] Refugio Nieves MD PhD [address] [facility] [address] [place] [address] Discharge Disposition: Discharge to home or self care Social History Tobacco Use Types Packs/Day Years Used Date Smoking Tobacco: Never Smokeless Tobacco: Former Alcohol Use Standard Drinks/Week Comments No 0 (1 standard drink = 0.6 oz pur e alcohol) Sex and Gender Information Value Date Recorded Sex Assigned at Not on file Legal Sex Male 3:42 AM WEB APPLICATIONS ADMINISTRATOR Gender Identity Not on file Sexual Orientation Not on file documented as of this encounter Medications at Time of Discharge aspirin 81 mg enteric coated tabletIndications: Myocardial Reinfarction Prevention Take 1 tablet (81 mg total) by mouth daily 11/07/2013 nitroglycerin (NITROSTAT) 0.4 mg SL tabletIndications: Coronary artery disease involving [place] coronary artery of [place] heart, angina presence unspecified Place 1 tablet [...] 06/13/2017 8 documented as of this encounter Discharge Disposition Disposition Code Departure Means Destination Discharge to home or self care documented in this encounter Plan of Treatment Not on file documented as of this encounter Procedures Procedure Name Priority Date/Time Associated Diagnosis Comments GLUCOSE POC Routine 09/19/2017 4:06 PM WEB APPLICATIONS ADMINISTRATOR GLUCOSE POC Routine 09/19/2017 3:00 PM WEB APPLICATIONS ADMINISTRATOR DISCHARGE LABORATORY CUMULATIVE REPORT 09/19/2017 12:00 AM WEB APPLICATIONS ADMINISTRATOR documented in this encounter Results * (ABNORMAL) Glucose POC (09/19/2017 4:06 PM WEB APPLICATIONS ADMINISTRATOR) [facility] Glucose, POC 301(H) 70 - 199 mg/dL ALESSANDRA COLE Comment: Interpretive Data Glucose is assumed to be non-fasting. Fasting Glucose reference ranges are: 0 - 150 years: ??70 mg/dL - 99 mg/dL Current interpretive data was last revised on 2014. Glucose comment 1 RN/MD Notified ALESSANDRA COLE Blood specimen (specimen) 09/19/2017 4:06 PM WEB APPLICATIONS ADMINISTRATOR 09/19/2017 4:06 PM WEB APPLICATIONS ADMINISTRATOR Narrative ALESSANDRA COLE - 09/19/2017 4:11 PM WEB APPLICATIONS ADMINISTRATOR us Refugio Nieves MD PhD POINT OF CARE TEST OR DERABLES Final Result ALESSANDRA C[facility] [id number] [facility] [place] [address] * (ABNORMAL) Glucose POC (09/19/2017 3:00 PM WEB APPLICATIONS ADMINISTRATOR) Glucose, POC 407(C) 70 - 199 mg/dL ALESSANDRA COLE Comment: Interpretive Data Glucose is assumed to be non-fasting. Fasting Glucose reference ranges are: 0 - 150 years: ??70 mg/dL - 99 mg/dL Current interpretive data was last revised on 2014. Glucose comment 1 RN/MD Notified ALESSANDRA COLE Blood specimen (specimen) 09/19/2017 3:00 PM WEB APPLICATIONS ADMINISTRATOR 09/19/2017 3:00 PM WEB APPLICATIONS ADMINISTRATOR Narrative ALESSANDRA KELSEY - 09/19/2017 3:01 PM WEB APPLICATIONS ADMINISTRATOR us Refugio Nieves MD PhD POINT OF CARE TEST OR DERABLES Final Result [facility]DRA [facility] [id number] [facility]. [place] [address] * DISCHARGE LABORATORY CUMULATIVE REPORT (09/19/2017 12:00 AM WEB APPLICATIONS ADMINISTRATOR) Narrative 09/19/2017 12:00 AM WEB APPLICATIONS ADMINISTRATOR Ordered by an unspecified provider. us Historical Provider LAB BLOOD ORDERABLES Ann Marie l Result documented in this encounter Visit Diagnoses Not on filedocumented in this encounter Care Teams Sewage Disposal Worker Relationship Specialty Start Date End Date Jhonatan Bellamy MD [address] [place], [place] [id number] PCP - General 03/25/15 04/16/18 documented as of this encounter
--- OUTSIDE RECORDS SUMMARY | 2024-08-18 13:15 | XMS_ITS | Encounter Summary ---
Author Organization [facility] Address [address] [address] Care Team Providers Care Clinical Education Coordinator Name Role Phone Jhonatan Bellamy MD Primary Care Provider +1- [phone] Encounter Details Date Type Department Care Team (Late st Contact Info) Description 07/17/2017 Telephone [facility] [address] [id number] Abelardo Petit MD [address] [facility] [address] [address] Social History Tobacco Use Types Packs/Day Years Used Date Smoking Tobacco: Never Smokeless Tobacco: Former Alcohol Use Standard Drinks/Week Comments No 0 (1 standard drink = 0.6 oz pur e alcohol) Sex and Gender Information Value Date Recorded Sex Assigned at Not on file Legal Sex Male 3:42 AM NEUROLOGICAL SURGERY TEACHER Gender Identity Not on file Sexual Orientation Not on file documented as of this encounter Miscellaneous Notes * Telephone Encounter - Lisa Diaz RN - 07/17/2017 1:13 PM CST Pt igor that his STD paperwork was not received. Told him, I will refax it . OLOGICAL SURGERY TEACHER documented in this encounter Plan of Treatment Not on file documented as of this encounter Visit Diagnoses Not on filedocumented in this encounter Care Teams Clinical Education Coordinator Relationship Specialty Start Date End Date Jhonatan Bellamy MD [address] [place] [address] PCP - General 03/25/15 04/16/18 documented as of this encounter
--- OUTSIDE RECORDS SUMMARY | 2024-08-18 13:15 | XMS_ITS | Encounter Summary ---
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 Name Role Phone Unavailable Primary Care Provider Unavailabl e Encounter Details Date Type Department Care Team (Latest Contact Info) Description 11/05/2013 9:08 PM CDT - 11/07/2013 3:03 PM CDT Hospital Encounter [facility] Other chest pain; Type 2 or unspecified type diabetes mellitus with other specified manifestations; Dizziness and giddiness; Hypertensive kidney disease with chronic kidney disease, stage 1-4; Esophageal reflux; Anemia of other chronic disease; Chronic kidney disease; Other and unspecified hyperlipidemia; Insulins and antidiabetic agents causing adverse effect in therapeutic use; Encounter for long-term (current) use of insulin (HCC) Social History Tobacco Use Types Packs/Day Years Used Date Smoking Tobacco: Never Assessed Sex and Gender Information Value Date Recorded Sex Assigned at Not on file 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 Gender Identity Not on file Sexual Orientation Not on file documented as of this encounter Last Filed Vital Signs Vital Sign Reading Time Taken Comments Blood Pressure 116/74 11/07/2013 1:45 PM CDT Pulse 68 11/07/2013 1:45 PM CDT Temperature - - Respiratory Rate - - Oxygen Saturation 100% 11/07/2013 1:45 PM CDT Inhaled Oxygen Concentration - - Weight 119.9 kg (264 lb 4.6 oz) 014 10:57 PM CDT Height 177.8 cm (5' 10 ) 11/05/2013 10: 57 PM CDT Body Mass Index 37.92 11/05/2013 10:57 PM CDT documented in this encounter Medications at Time of Discharge aspirin 81 mg enteric coated tabletIndications:Lisa yocardial Reinfarction Prevention Take 1 tablet (81 mg total) by mouth daily 11/07/2013 documented as of this encounter H&P Notes * Provider, MD Zev - 11/05/2013 12:00 AM CDT Patient: Juvenal Garvin Reg No: [id number] [facility] #: [id number] Admit Dt.: 11/05/2013 : 1970 Room No: [id number] Attending: Anurag Ojeda M.D. Dictating: Ana Chao M.D. ADMISSION HISTORY PHYSICAL CHIEF COMPLAINT: Dizziness. HISTORY OF PRESENT ILLNESS: 43-year-old white male, history of diabetes Type 2, chronic kidney disease, hypertension, hyperlipidemia, and gastroesophageal reflux disease, presents with chest pain and dizziness leading to admission for acute coronary syndrome rule-out. The patient was coming to work this morning, experienced chest pain that was substernal in nature and radiated to the right side of his chest beginning at 6:30 a.m., lasted one minute, associated with nausea plus dizziness plus shortness of breath that persisted through the morning. These symptoms resolved with Zofran in the emergency department. The patient noted that he was hyperglycemic when this episode occurred and took extra insulin per his sliding scale and so was noted to be hypoglycemic to 53 in the emergency department. The patient denies any previous episodes of chest pain similar to this episode. The patient has been noting increasing dyspnea on exertion when walking up inclines and also with stairs. Review of systems also positive for occasional tension headache, chronic dysphagia (food feels like it gets stuck, patient washes it down with liquid), bilateral knee pain with stairs, chronic foot pain likely associated with diabetes, back stiffness, and constipation. Emergency department vital signs were a temperature of 36.6 degrees, heart rate of 66 to 74, respirations 18 to 20, blood pressure 134 to 153 / 66 to 82, SPO2 of 93 to 100% on room air. Emergency department treatment includes Zofran 4 mg intravenous push, aspirin 325 mg PO, and lispro 15 units subcutaneously. PAST MEDICAL/SURGICAL HISTORY: 1. Type 2 diabetes. 2. Chronic kidney disease with a baseline creatinine of 1.7 to 2.5. 3. Hypertension. 4. Hyperlipidemia. 5. Gastroesophageal reflux disease. Primary care physician equals Jhonatan Bellamy M.D. Stopper Maker equals Jonnie. MEDICATIONS: 1. Lantus 68 units subcutaneously q p.m. for diabetes. 2. Humalog 12 units t.i.d. with meals for Type 2 diabetes plus sliding scale insulin. 3. Lisinopril 40 mg PO b.i.d. for hypertension. 4. Furosemide 40 mg PO b.i.d. for hypertension. 5. Metoprolol 40 mg PO b.i.d. for hypertension. 6. Ranitidine 300 mg PO b.i.d. for gastroesophageal reflux disease. 7. Simvastatin 20 mg PO q p.m. for hyperlipidemia. ALLERGIES: No known allergies. FAMILY HISTORY: Family medical history - Congestive heart failure, early coronary artery disease. SOCIAL HISTORY: . No alcohol / tobacco / drugs. REVIEW OF SYSTEMS: As per history of present illness; otherwise all systems were reviewed and found to be negative. PHYSICAL EXAMINATION: Vital Signs: Temperature 36.6 degrees, heart rate 70, respiratory rate 18, blood pressure 155/73, estimated height 70 inches, estimated weight 150.4 kilograms. Constitutional: General; no acute distress, awake, alert, and oriented times four, obese white male, lying in bed, appears comfortable, very pleasant demeanor. HEENT: Eyes; extraocular muscles intact, pupils are equal, round, and reactive and accommodating to light. No icterus. No injection. Head, ears, nose, mouth, throat; nares patent, oropharynx clear, moist mucous membranes, no erythema or exudate. Chest: Cardiovascular; regular rate and rhythm. No murmurs / rubs / gallops. Lungs: Respiratory; clear to auscultation bilaterally. No rales / rhonchi / wheezes. Abdomen: Gastrointestinal; soft, nontender, and nondistended. No rebound or guarding. Extremities: Musculoskeletal; warm and well-perfused. 2+ pitting edema to the knees. Skin: Intact. No rashes or erythema. Neurologic: Cranial nerves II-XII intact. No focal deficits. Psychiatric: Euthymic. LABORATORY AND X-RAY DATA: CBC: White blood cell count 5.8, hemoglobin 12.8, hematocrit 36.7, platelets 321. Mean corpuscular volume 81.3. Basic metabolic panel: Sodium 140, potassium 4.1, chloride 103, bicarb 24, BUN 45, creatinine 1.8 (and at patient's baseline), glucose 53, anion gap 13, calcium 9.5. Other labs: Troponin less than 0.03, D-dimer slightly elevated at 285 with the upper limit of normal 230. Urinalysis: 2+ protein, 2+ glucose, trace blood, greater than two hyaline casts. Electrocardiogram: Approximately sixty beats per minute, sinus, normal axis, poor R-wave progression, no signs of ischemia. Chest X-ray: No pneumothoraces, effusions, infiltrates. ASSESSMENT AND PLAN: 43-year-old white male history of Type 2 diabetes, chronic kidney disease, hypertension, hyperlipidemia, and gastroesophageal reflux disease, presents with chest pain, admitted for acute coronary syndrome rule-out. 1. Chest pain, nausea, and shortness of breath: Acute coronary syndrome versus gastroesophageal reflux disease. Troponins times three, electrocardiogram, telemetry, exercise stress test in the a.m. 2. Dyspnea on exertion: Concerning for stable angina. Work-up as above. 3. Type 2 diabetes: Lantus at less than 50% home dose secondary to hypoglycemia in the emergency department. Sliding scale insulin. 4. Chronic kidney disease: At baseline. 5. Anemia: Likely anemia of chronic disease. Ferritin plus iron profile pending. 6. Hypertension: Continue lisinopril plus furosemide plus metoprolol. 7. Gastroesophageal reflux disease: Continue ranitidine. 8. Gastrointestinal / fluids, electrolytes, and nutrition: Cardiac diet, then NPO for possible studies. 9. Prophylaxis: Heparin subcutaneous, ranitidine. 10. Access: Peripheral I.V. 11. Full code. 12. Disposition: Likely discharge after stress test if negative. Ana Chao M.D. Electronically Signed By Anurag Ojeda M.D. 11/06/2013 12:21 P Anurag Ojeda M.D. [facility] #[id number] Editing MT: TD: 11/05/2013 21:38:00 cc: Dorys Lucio M.D. documented in this encounter Plan of Treatment Not on file documented as of this encounter Procedures Procedure Name Priority Date/Time Associated Diagnosis Comments BLOOD GLUCOSE, POC Routine 11/07/2013 11 :33 AM CDT BLOOD GLUCOSE, POC Routine 11/07/2013 8: 49 AM CDT BLOOD GLUCOSE, POC Routine 11/07/2013 7: 14 AM CDT DISCHARGE LABORATORY CUMULATIVE REPORT Routine 11/07/2013 12:00 AM CDT BLOOD GLUCOSE, POC Routine 11/06/2013 9: 27 PM CDT BLOOD GLUCOSE, POC Routine 11/06/2013 5: 22 PM CDT BLOOD GLUCOSE, POC Routine 11/06/2013 11 :41 AM CDT BLOOD GLUCOSE, POC Routine 11/06/2013 7: 26 AM CDT SERUM TROPONIN I Routine 11/06/2013 6:12 AM CDT BLOOD GLUCOSE, POC Routine 11/06/2013 2: 06 AM CDT BLOOD HEMOGLOBIN A1C Routine 11/05/2013 10:11 PM CDT BLOOD B-TYPE NATRIURETIC PEPTIDE (BNP) Routine 11/05/2013 10:11 PM CDT SERUM TROPONIN I Routine 11/05/2013 9:47 PM CDT BLOOD GLUCOSE, POC Routine 11/05/2013 9: 16 PM CDT BLOOD GLUCOSE, POC Routine 11/05/2013 7: 01 PM CDT BLOOD GLUCOSE, POC Routine 11/05/2013 2: 36 PM CDT SERUM TROPONIN I Routine 11/05/2013 2:30 PM CDT SERUM IRON PROFILE Routine 11/05/2013 2: 30 PM CDT SERUM FERRITIN Routine 11/05/2013 2:30 PM CDT URINE MICROSCOPY Routine 11/05/2013 10:5 5 AM CDT URINALYSIS Routine 11/05/2013 10:55 AM CDT SERUM TROPONIN I Routine 11/05/2013 9:37 AM CDT SERUM LIPID PANEL Routine 11/05/2013 9:3 7 AM CDT PLASMA PROTHROMBIN TIME (PT) Routine 11/05/2013 9:37 AM CDT PLASMA PARTIAL THROMBOPLASTIN TIME (PTT) Routine 11/05/2013 9:37 AM CDT PLASMA BASIC METABOLIC PANEL Routine 11/05/2013 9:37 AM CDT BLOOD D-DIMER Routine 11/05/2013 9:37 AM CDT BLOOD CELL COUNT (CBC) Routine 4 9:37 AM CDT XR CHEST PA LATERAL 2 VIEWS Routine 11/05/2013 9:15 AM CDT ELECTROCARDIOGRAPHY (ECG) 11/05/2013 ELECTROCARDIOGRAPHY (ECG) 11/05/2013 ELECTROCARDIOGRAPHY (ECG) 11/05/2013 documented in this encounter Results * (ABNORMAL) Blood glucose, POC (11/07/2013 11:33 AM CDT) Glucose, POC, bld 250(H) 70 - 199 mg/dl HISTORICAL RESULTS Blood specimen (specimen) 11/07/2013 11:33 AM CDT us Anurag Ojeda MD PhD LAB BLOOD ORDERABL ES Final Result Performing Organization Address [facility] de Phone Number HISTORICAL RESULTS * (ABNORMAL) Blood glucose, POC (11/07/2013 8:49 AM CDT) Glucose, POC, bld 388(H) 70 - 199 mg/dl HISTORICAL RESULTS Blood specimen (specimen) 11/07/2013 8:49 AM CDT us Anurag Ojeda MD PhD LAB BLOOD ORDERABL ES Final Result Performing Organization Address [facility] de Phone Number HISTORICAL RESULTS * (ABNORMAL) Blood glucose, POC (11/07/2013 7:14 AM CDT) Glucose, POC, bld 328(H) 70 - 199 mg/dl HISTORICAL RESULTS Blood specimen (specimen) 11/07/2013 7:14 AM CDT us Anurag Ojeda MD PhD LAB BLOOD ORDERABL ES Final Result Performing Organization Address [facility] de Phone Number HISTORICAL RESULTS * Discharge Laboratory Cumulative Report (11/07/2013 12:00 AM CDT) 11/07/2013 Narrative HISTORICAL RESULTS - 11/07/2013 3:25 PM CDT ?[facility] ?Department of Laboratories ? [address] [facility] [place] ? [place] [address] Patient Name: ??JUVENAL GARVIN [facility] Rec Number: [id number] Fin Number: ?[id number] Date: ?1970 Sex/Age: ? Male 43 years Admit Date: ?11/05/2013 Discharge Date: 11/07/2013 Doctor: ?[facility] , [address] Facility: ?[facility] Location: ?[id number] Chart Printed: 11/07/2013 15:25 ?? * Abnormal ?? C Critical ?? f Footnote ?? ^ Corrected ?? L Low ?? H High ? i Interp Data ?? @ Reference Lab ?Chart Type:Cumulative ? SELECTED ELECTROLYTES ?Test: Sodium ? Plasma Potassium ??Chloride ? Reference: [135-145] ??[3.3-4.9] ? [97-110] ? Units: mmol/L ? mmol/L ?mmol/L 11/05/2013 ?? 09:37:56 ?? 140 ?4.1 ? 103 ?Test: Total CO2 ??Anion Gap ? Reference: [22-32] ?[0-16] ? Units: mmol/L ? mmol/L 11/05/2013 ?? 09:37:56 ?? 24 ? 13 ? STANDARD BLOOD CHEMISTRY ?Test: BUN ? Creatinine ?? Glucose ?? Total Calcium ? Reference: [8-25] ??[0.70-1.30] ??[70-199] ??[8.6-10.3] ? Units: mg/dL ?? mg/dL ?mg/dL ? mg/dL 11/05/2013 ?? 09:37:56 ?? 45 ??H ?? 1.80 ??H ?53 ??L ? 9.5 ?GLYCATED HEMOGLOBIN TESTING ?Test: Hemoglobin A1C ??Est Average Glucose ? Reference: [4.0-6.0] ? Units: % ? mg/dL 11/05/2013 ?? 22:11:00 ?? 10.1 ??H ? 243 ??f 11/05/2013 22:11:00 ??Est Average Glucose: The ADA recommends reporting an estimated Average Glucose (eAG) with all Hemoglobin A1c results using the equation derived from a study of 507 normal and diabetic adults. ??Minority populations were underrepresented and ?GLYCATED HEMOGLOBIN TESTING children were not included. ??(Diabetes Care 31:3236-1284, 2008). ??The eAG is not equivalent to a fasting glucose. ?LIPIDS ?Test: Total Cholesterol i ??HDL Cholesterol i ? Reference: [0-200] ?[40-199] ? Units: mg/dL ?mg/dL 11/05/2013 ?? 09:37:56 ?? 202 ??H ? 29 ??L 11/05/2013 09:37:56 Total Cholesterol: Interpretive Data Desirable: ?<200 mg/dL Borderline high: ??200-239 mg/dL High: ? >240 mg/dL Literature Reference: National Cholesterol Education Program (NCEP) Expert Panel on Detection, Evaluation, and Treatment of High Blood Cholesterol in Adults (Adult Treatment Panel III). ??Circulation 2004; 110:227. Current interpretive data was last revised on 2005. 11/05/2013 09:37:56 HDL Cholesterol: Interpretive Data Less than 40 mg/dL - low; A major risk factor for heart disease. Greater than or equal to 60 mg/dL - High; ??considered protective of heart disease. Literature Reference: See Cholesterol Current interpretive data was last revised on 2008. ?Test: Triglycerides i ??LDL Chol (Calc) i ? Reference: [0-150] ?[0-129] ? Units: mg/dL ?mg/dL 11/05/2013 ?? 09:37:56 ?? 360 ??H ? 101 11/05/2013 09:37:56 Triglycerides: Interpretive Data Desirable: ? < 150 mg/dL Borderline High: ? 150 - 199 mg/dL High: ?> 200 mg/dL Literature Reference: See Cholesterol Current interpretive data was last revised on 07. 11/05/2013 09:37:56 LDL Chol (Calc): Interpretive Data Optimal: ? < 100 mg/dL Near Optimal: ?100 - 129 mg/dL Borderline High: ?? 130 - 159 mg/dL High: ?> 160 mg/dL Literature Reference: See Cholesterol Current interpretive data was last revised on 07. ?LIPIDS ?Test: non-HDL Cholesterol i ? Reference: ? Units: mg/dL 11/05/2013 ?? 09:37:56 ?? 173 11/05/2013 09:37:56 non-HDL Cholesterol: Interpretive Data When triglycerides are >200 mg/dL, non-HDL C is a secondary target of therapy, with a goal 30 mg/dL higher than the identified LDL-C goal. Reference: ??See Cholesterol Reference. Current interpretive data was last revised 2012. ? CARDIAC PROTEINS ?Test: Troponin I i ??BNP ? Reference: [0.00-0.03] ?? [0-100] ? Units: ng/mL ? pg/mL 11/06/2013 ?? 06:12:00 ?? <0.03 11/05/2013 ?? 22:11:00 ? 13 11/05/2013 ?? 21:47:00 ?? <0.03 11/05/2013 ?? 14:30:00 ?? <0.03 11/05/2013 ?? 09:37:56 ?? <0.03 11/05/2013 09:37:56 Troponin I: Interpretive Data Serial determinations are recommended for the diagnosis of myocardial infarction (Third [place] Definition of Myocardial Infarction. ??J Am Elena Cardiol 2012;60:1581-98). Current interpretive data was last revised on 13. ?URINALYSIS ?Macroscopic ?Test: Color ? Clarity ??Specific [place] ??pH ? Reference: [Yellow] ??[Clear] ??[1.003-1.030] ? [5.0-8.0] ? Units: 11/05/2013 ?? 10:55:32 ?? Yellow ?Clear ?1.014 ? 5.5 ?Test: Albumin ??Glucose ? Ketones ? Bilirubin ? Reference: [Trace] ??[Negative] ??[Negative] ??[Negative] ? Units: 11/05/2013 ?? 10:55:32 ?? 2+ ??* ?2+ ??* ? Negative ?Negative ?Test: Blood ? Urobilinogen ??Nitrite ? Reference: [Negative] ??[0.0-2.0] ? [Negative] ? Units: ? mg/dL 11/05/2013 ?? 10:55:32 ?? Trace ??* ?<2.0 ?Negative ?URINALYSIS ?Macroscopic ?Test: Leuk Esterase ? Reference: [Negative] ? Units: 11/05/2013 ?? 10:55:32 ?? Negative ?Microscopic ?Test: Mucus Thrds ??RBC Ur ??WBC Ur ??Bacteria Ur ? Reference: ?[0-3] ?? [0-5] ?? [Trace] ? Units: /HPF ? /HPF ?/HPF 11/05/2013 ?? 10:55:32 ?? Small ?1 ? 1 ? Negative ?Test: Epithl Renl Ur ??Hyaline Cast ? Reference: [0-0] ? [0-0] ? Units: /HPF ?/LPF 11/05/2013 ?? 10:55:32 ?? 0 ? >2 ??H ? COMPLETE BLOOD COUNT ?Test: WBC ?RBC ?Hgb ? Reference: [3.8-9.8] ??[4.50-5.70] ??[13.8-17.2] ? Units: K/cumm ? M/cumm ? g/dL 11/05/2013 ?? 09:37:56 ?? 5.8 ?4.51 ? 12.8 ??L ?Test: Hct ?Platelet Ct ??MCV ? Reference: [40.7-50.3] ??[140-440] ?[80.0-97.6] ? Units: % ?K/cumm ? fL 11/05/2013 ?? 09:37:56 ?? 36.7 ??L ?321 ?81.3 ?Test: MCH ?MCHC ? RDW ? Reference: [26.7-33.7] ??[32.7-35.5] ??[11.8-14.6] ? Units: pg ? g/dL ? % 11/05/2013 ?? 09:37:56 ?? 28.3 ? 34.8 ? 12.6 ?Test: MPV ? Reference: [6.8-10.4] ? Units: fL 11/05/2013 ?? 09:37:56 ?? 8.1 ? AUTOMATED WHITE CELL DIFFERENTIAL ?Test: Neut Pct Auto ??Lymph Pct Auto ??Roberts Pct Auto ? Reference: [38.7-74.5] ?[20.0-54.3] ? [4.3-13.5] ? Units: % ?% ? % 11/05/2013 ?? 09:37:56 ?? 41.7 ? 41.2 ?12.4 ? AUTOMATED WHITE CELL DIFFERENTIAL ?Test: Eos Pct Auto ??Baso Pct Auto ??Neut Abs Auto ? Reference: [0.0-6.0] ? [0.0-3.0] ?[1.8-6.6] ? Units: % ? % ?K/cumm 11/05/2013 ?? 09:37:56 ?? 3.8 ? 0.9 ?2.4 ?Test: Lymph Abs Auto ??Roberts Abs Auto ??Eos Abs Auto ? Reference: [1.2-3.3] ? [0.2-1.2] ?[0.0-0.5] ? Units: K/cumm ?K/cumm ? K/cumm 11/05/2013 ?? 09:37:56 ?? 2.4 ? 0.7 ?0.2 ?Test: Baso Abs Auto ? Reference: [0.0-0.2] ? Units: K/cumm 11/05/2013 ?? 09:37:56 ?? 0.1 ?ANEMIA TESTING ?Test: Total Iron ??Total Iron Bind Capacity ? Reference: [45-160] ?[220-420] ? Units: mcg/dL ?mcg/dL 11/05/2013 ?? 14:30:00 ?? 32 ??L ? 242 ?Test: Unsat Iron Bind Capacity ? Reference: ? Units: mcg/dL 11/05/2013 ?? 14:30:00 ?? 210 ?Test: Transferrin Saturation ??Ferritin ? Reference: [20-50] ? [22-322] ? Units: % ? ng/mL 11/05/2013 ?? 14:30:00 ?? 13 ??L ? 110 ? HEMOSTASIS AND THROMBOSIS ?Routine Coagulation Studies ?Test: PT ?INR i ?aPTT i ? Reference: [9.0-12.0] ??[0.90-1.20] ??[25.0-37.0] ? Units: sec ?sec 11/05/2013 ?? 09:37:56 ?? 10.3 ?0.98 ? 30.9 ? HEMOSTASIS AND THROMBOSIS ?Routine Coagulation Studies 11/05/2013 09:37:56 INR: Interpretive Data Inpatient therapeutic ranges* Atrial fibrillation ?2.0-3.0 INR Venous thrombo-embolism ?2.0-3.0 INR Bioprosthetic heart valve ?* Mechanical heart valve, bileaflet or tilting disk,aortic position ? 2.0-3.0 INR All other,or bileaflet or tilting disk, in mitral position ? 2.5-3.5 INR *See the pharmacy resource directory (PHRED) for an updated copy of the Tool Book at [email or web address] Current Interpretive Data was last revised 2011. 11/05/2013 09:37:56 aPTT: Interpretive Data Therapeutic heparin range:60.0 - 94.0 sec based on correlation with therapeutic heparin activity range of 0.3 -0.7 Units/mL. Current interpretive data was last revised on 2011. ?Test: D-Dimer Qnt i ? Reference: [110-230] ? Units: ng/mL D-DU 11/05/2013 ?? 09:37:56 ?? 285 ??H 11/05/2013 09:37:56 D-Dimer Qnt: Interpretive Data This D-dimer test is approved by the FDA to exclude suspected PE and DVT in outpatients when the result is <230 ng/mL in conjunction with a pre-test probability score of low or moderate using the Wells criteria. Current Interpretive Data was last revised on 2012. ?POINT OF CARE TESTS ? Chemistry ?Test: Gluc comment 1 ??Glucose POC ? Reference: ? [70-199] ? Units: ? mg/dL 11/07/2013 ?? 11:33:00 ? 250 ??H 11/07/2013 ?? 08:49:00 ? 388 ??H 11/07/2013 ?? 07:14:00 ? 328 ??H 11/06/2013 ?? 21:27:00 ? 402 ??H 11/06/2013 ?? 17:22:00 ? 388 ??H 11/06/2013 ?? 11:41:00 ? 373 ??H 11/06/2013 ?? 07:26:00 ? 304 ??H 11/06/2013 ?? 02:06:00 ? 329 ??H 11/05/2013 ?? 21:16:00 ? 397 ??H 11/05/2013 ?? 19:01:00 ? 331 ??H 11/05/2013 ?? 14:36:00 ?? RN Notified ? 203 ??H ? CANCELLED TESTS Date ?Time ?Test ?Cancel Reason 11/05/2013 ??09:37:00 ??BNPeptide 11/05/2013 ??09:37:00 ??HGB A1c 11/05/2013 ??15:43:00 ??Troponin I ??NCHG Canceled by ED us Historical Provider MD LAB BLOOD ORDERABLES Ann Marie l Result Performing Organization Address [facility] de Phone Number HISTORICAL RESULTS * (ABNORMAL) Blood glucose, POC (11/06/2013 9:27 PM CDT) Glucose, POC, bld 402(H) 70 - 199 mg/dl HISTORICAL RESULTS Blood specimen (specimen) 11/06/2013 9:27 PM CDT Anurag Ojeda MD PhD LAB BLOOD ORDERABL ES Final Result Performing Organization Address [facility] de Phone Number HISTORICAL RESULTS * (ABNORMAL) Blood glucose, POC (11/06/2013 5:22 PM CDT) Glucose, POC, bld 388(H) 70 - 199 mg/dl HISTORICAL RESULTS Blood specimen (specimen) 11/06/2013 5:22 PM CDT Anurag Ojeda MD PhD LAB BLOOD ORDERABL ES Final Result Performing Organization Address [facility] de Phone Number HISTORICAL RESULTS * (ABNORMAL) Blood glucose, POC (11/06/2013 11:41 AM CDT) Glucose, POC, bld 373(H) 70 - 199 mg/dl HISTORICAL RESULTS Blood specimen (specimen) 11/06/2013 11:41 AM CDT Anurag Ojeda MD PhD LAB BLOOD ORDERABL ES Final Result Performing Organization Address [facility] de Phone Number HISTORICAL RESULTS * (ABNORMAL) Blood glucose, POC (11/06/2013 7:26 AM CDT) Glucose, POC, bld 304(H) 70 - 199 mg/dl HISTORICAL RESULTS Blood specimen (specimen) 11/06/2013 7:26 AM CDT Anurag Ojeda MD PhD LAB BLOOD ORDERABL ES Final Result Performing Organization Address [facility] de Phone Number HISTORICAL RESULTS * Serum troponin I (11/06/2013 6:12 AM CDT) Troponin I <0.03 0.00 - 0.03 ng/ml HISTORICAL RESULTS Comment: Interpretive Data Serial determinations are recommended for the diagnosis of myocardial infarction (Third [place] Definition of Myocardial Infarction. ??J Am Elena Cardiol 2012;60:1581-98). Current interpretive data was last revised on 13. Serum 11/06/2013 6:12 AM CDT Ana Chao IV, MD PhD LAB BLOOD ORDERA BLES Final Result Performing Organization Address [facility] de Phone Number HISTORICAL RESULTS * (ABNORMAL) Blood glucose, POC (11/06/2013 2:06 AM CDT) Glucose, POC, bld 329(H) 70 - 199 mg/dl HISTORICAL RESULTS Blood specimen (specimen) 11/06/2013 2:06 AM CDT us Anurag Ojeda MD PhD LAB BLOOD ORDERABL ES Final Result Performing Organization Address [facility] Co de Phone Number HISTORICAL RESULTS * Blood B-type natriuretic peptide (BNP) (11/05/2013 10:11 PM CDT) BNP 13 0 - 100 pg/ml HISTORICAL RESULTS Blood specimen (specimen) 11/05/2013 10:11 PM CDT Ana Cruz MD LAB BLOOD ORDERABLES Fi nal Result Performing Organization Address [facility] Co de Phone Number HISTORICAL RESULTS * (ABNORMAL) Blood hemoglobin A1C (11/05/2013 10:11 PM CDT) Pathologist [facility] Hgb A1C 10.1(H) 4.0 - 6.0 % HISTORICAL RESULTS Estimated average glucose 243 mg/dl HISTORICAL RESULTS Comment: The ADA recommends reporting an estimated Average Glucose (eAG) with all Hemoglobin A1c results using the equation derived from a study of 507 normal and diabetic adults. ??Minority populations were underrepresented and children were not included. ??(Diabetes Care 31:8946-9063, 2008). ??The eAG is not equivalent to a fasting glucose. Blood specimen (specimen) 11/05/2013 10:11 PM CDT Ana Cruz MD LAB BLOOD ORDERABLES Fi nal Result Performing Organization Address [facility] de Phone Number HISTORICAL RESULTS * Serum troponin I (11/05/2013 9:47 PM CDT) [facility] Troponin I <0.03 0.00 - 0.03 ng/ml HISTORICAL RESULTS Comment: Interpretive Data Serial determinations are recommended for the diagnosis of myocardial infarction ([place] Definition of Myocardial Infarction. ??J Am Elena Cardiol 2012;60:1581-98). Current interpretive data was last revised on 13. Serum 11/05/2013 9:47 PM CDT Ana Chao IV, MD PhD LAB BLOOD ORDERA BLES Final Result Performing Organization Address [facility] Co de Phone Number HISTORICAL RESULTS * (ABNORMAL) Blood glucose, POC (11/05/2013 9:16 PM CDT) Pathologist [facility] Glucose, POC, bld 397(H) 70 - 199 mg/dl HISTORICAL RESULTS Blood specimen (specimen) 11/05/2013 9:16 PM CDT Anurag Ojeda MD PhD LAB BLOOD ORDERABL ES Final Result Performing Organization Address [facility] de Phone Number HISTORICAL RESULTS * (ABNORMAL) Blood glucose, POC (11/05/2013 7:01 PM CDT) Glucose, POC, bld 331(H) 70 - 199 mg/dl HISTORICAL RESULTS Blood specimen (specimen) 11/05/2013 7:01 PM CDT us Ana Cruz MD LAB BLOOD ORDERABLES Fi nal Result Performing Organization Address [facility] Co de Phone Number HISTORICAL RESULTS * (ABNORMAL) Blood glucose, POC (11/05/2013 2:36 PM CDT) Glucose, POC, bld 203(H) 70 - 199 mg/dl HISTORICAL RESULTS Gluc, com 1, bld RN Notified HISTORICAL RESULTS Blood specimen (specimen) 11/05/2013 2:36 PM CDT us Historical Provider LAB BLOOD ORDERABLES Ann Marie l Result Performing Organization Address [facility] de Phone Number HISTORICAL RESULTS * (ABNORMAL) Serum iron profile (11/05/2013 2:30 PM CDT) [facility] Iron 32(L) 45 - 160 mcg/dl HISTORICAL RESULTS UIBC 210 mcg/dl HISTORICAL RESULTS TIBC 242 220 - 420 mcg/dl HISTORICAL RESULTS Transferrin saturation 13(L) 20 - 50 % HISTORICAL RESULTS Serum 11/05/2013 2:30 PM CDT us Kerry Martinez MD LAB BLOOD ORDERABLES Final Result Performing Organization Address [facility] de Phone Number HISTORICAL RESULTS * Serum troponin I (11/05/2013 2:30 PM CDT) Pathologist [facility] Troponin I <0.03 0.00 - 0.03 ng/ml HISTORICAL RESULTS Comment: Interpretive Data Serial determinations are recommended for the diagnosis of myocardial infarction (Third [place] Definition of Myocardial Infarction. ??J Am Elena Cardiol 2012;60:1581-98). Current interpretive data was last revised on 13. Serum 11/05/2013 2:30 PM CDT Kerry Martinez MD LAB BLOOD ORDERABLES Final Result Performing Organization Address [facility] de Phone Number HISTORICAL RESULTS * Serum ferritin (11/05/2013 2:30 PM CDT) Ferritin 110 22 - 322 ng/ml HISTORICAL RESULTS Serum 11/05/2013 2:30 PM CDT Result [facility] Kerry Martinez MD LAB BLOOD ORDERABLES Final Result Performing Organization Address [facility] de Phone Number HISTORICAL RESULTS * (ABNORMAL) Urinalysis (11/05/2013 10:55 AM CDT) Color, ur Yellow Yellow HISTORICAL RESULTS Clarity, ur Clear Clear HISTORIC AL RESULTS Specific gravity, ur 1.014 1.003 - 1.030 HISTORICAL RESULTS pH, ur 5.5 5.0 - 8.0 HISTORICAL RESULTS Protein, ur 2+(A) Trace HISTORIC AL RESULTS Glucose, ur 2+(A) Negative HISTORIC AL RESULTS Ketones, ur Negative Negative HISTORIC AL RESULTS Bilirubin, ur Negative Negative HISTOR ICAL RESULTS U Blood Trace(A) Negative HISTORICAL RESULTS Urobilinogen, quant, ur <2.0 0.0 - 2.0 mg/dl HISTORICAL RESULTS Nitrites, ur Negative Negative HISTORI DOMINICK RESULTS Leukocyte esterase, ur Negative Negative HISTORICAL RESULTS Urine 11/05/2013 10:5 5 AM CDT Ana Cruz MD LAB BLOOD ORDERABLES Fi nal Result Performing Organization Address [facility] de Phone Number HISTORICAL RESULTS * (ABNORMAL) Urine microscopy (11/05/2013 10:55 AM CDT) RBC, ur 1 0 - 3 /hpf HISTORICA L RESULTS WBC, ur 1 0 - 5 /hpf HISTORICA L RESULTS Bacteria, ur Negative Trace HISTORI DOMINICK RESULTS Epithelial cells, renal, ur 0 0 - 0 /hpf HISTORICAL RESULTS Mucus, ur Small /hpf HISTORICAL RESULTS Hyaline casts >2(H) 0 - 0 /lpf HISTO RICAL RESULTS Urine 11/05/2013 10:5 5 AM CDT Ana Cruz MD LAB BLOOD ORDERABLES Fi nal Result HISTORICAL RESULTS * (ABNORMAL) Serum lipid panel (11/05/2013 9:37 AM CDT) Cholesterol 202(H) 0 - 200 mg/dl HISTORICAL RESULTS Comment: Interpretive Data Desirable: ?<200 mg/dL Borderline high: ??200-239 mg/dL High: ? >240 mg/dL Literature Reference: National Cholesterol Education Program (NCEP) Expert Panel on Detection, Evaluation, and Treatment of High Blood Cholesterol in Adults (Adult Treatment Panel III). ??Circulation 2004; 110:227. Current interpretive data was last revised on 2005. Triglycerides 360(H) 0 - 150 mg/dl HISTORICAL RESULTS Comment: Interpretive Data Desirable: ? < 150 mg/dL Borderline High: ? 150 - 199 mg/dL High: ?> 200 mg/dL Literature Reference: See Cholesterol Current interpretive data was last revised on 07. HDL 29(L) 40 - 199 mg/dl HISTORICAL RESULTS Comment: Interpretive Data Less than 40 mg/dL - low; A major risk factor for heart disease. Greater than or equal to 60 mg/dL - High; ??considered protective of heart disease. Literature Reference: See Cholesterol Current interpretive data was last revised on 2008. LDL 101 0 - 129 mg/dl HISTORICAL RESULTS Comment: Interpretive Data Optimal: ? < 100 mg/dL Near Optimal: ?100 - 129 mg/dL Borderline High: ?? 130 - 159 mg/dL High: ?> 160 mg/dL Literature Reference: See Cholesterol Current interpretive data was last revised on 07. Non-HDL cholesterol, calculated 173 mg/dl HISTORICAL RESULTS Comment: Interpretive Data When triglycerides are >200 mg/dL, non-HDL C is a secondary target of therapy, with a goal 30 mg/dL higher than the identified LDL-C goal. Reference: ??See Cholesterol Reference. Current interpretive data was last revised 2012. Serum 11/05/2013 9:37 AM CDT Ana Cruz MD LAB BLOOD ORDERABLES [facility] Result Performing Organization Address [facility] de Phone Number HISTORICAL RESULTS * Plasma partial thromboplastin time (PTT) (11/05/2013 9:37 AM CDT) APTT 30.9 25.0 - 37.0 seconds HISTORICAL RESULTS Comment: Interpretive Data Therapeutic heparin range:60.0 - 94.0 sec based on correlation with therapeutic heparin activity range of 0.3 -0.7 Units/mL. Current interpretive data was last revised on 2011. Plasma 11/05/2013 9:37 AM CDT Ana Cruz MD LAB BLOOD ORDERABLES [facility] Result Performing Organization Address [facility] de Phone Number HISTORICAL RESULTS * (ABNORMAL) Plasma basic metabolic panel (11/05/2013 9:37 AM CDT) Sodium 140 135 - 145 mmol/L HISTORICAL RESULTS K, pl 4.1 3.3 - 4.9 mmol/L HISTORICAL RESULTS Chloride 103 97 - 110 mmol/L HISTORICAL RESULTS CO2 24 22 - 32 mmol/L HISTORICAL RESULTS A. gap 13 0 - 16 mmol/L HISTORICAL RESULTS Glucose 53(L) 70 - 199 mg/dl HISTORICAL RESULTS BUN 45(H) 8 - 25 mg/dl HISTORICAL RESULTS Creatinine 1.80(H) 0.70 - 1.30 mg/dl HISTORICAL RESULTS Calcium 9.5 8.6 - 10.3 mg/dl HISTORICAL RESULTS Plasma 11/05/2013 9:37 AM CDT Ana Cruz MD LAB BLOOD ORDERABLES Fi nal Result Performing Organization Address [facility] Co de Phone Number HISTORICAL RESULTS * Serum troponin I (11/05/2013 9:37 AM CDT) Troponin I <0.03 0.00 - 0.03 ng/ml HISTORICAL RESULTS Comment: Interpretive Data Serial determinations are recommended for the diagnosis of myocardial infarction (Third [place] Definition of Myocardial Infarction. ??J Am Elena Cardiol 2012;60:1581-98). Current interpretive data was last revised on 13. Serum 11/05/2013 9:37 AM CDT Ana Cruz MD LAB BLOOD ORDERABLES nal Result Performing Organization Address [facility] de Phone Number HISTORICAL RESULTS * Plasma prothrombin time (PT) (11/05/2013 9:37 AM CDT) INR 0.98 0.90 - 1.20 HISTORIC AL RESULTS Comment: Interpretive Data Inpatient therapeutic ranges* Atrial fibrillation ?2.0-3.0 INR Venous thrombo-embolism ?2.0-3.0 INR Bioprosthetic heart valve ?* Mechanical heart valve, bileaflet or tilting disk,aortic position ? 2.0-3.0 INR All other,or bileaflet or tilting disk, in mitral position ? 2.5-3.5 INR *See the pharmacy resource directory (PHRED) for an updated copy of the Tool Book at [email or web address].nsf Current Interpretive Data was last revised 2011. Prothrombin time (PT) 10.3 9.0 - 12.0 seconds HISTORICAL RESULTS Plasma 11/05/2013 9:37 AM CDT Ana Cruz MD LAB BLOOD ORDERABLES Fi nal Result HISTORICAL RESULTS * (ABNORMAL) Blood cell count (CBC) (11/05/2013 9:37 AM CDT) WBC 5.8 3.8 - 9.8 K/cumm HISTORICAL RESULTS RBC 4.51 4.50 - 5.70 M/cumm HISTORICAL RESULTS Hgb 12.8(L) 13.8 - 17.2 g/dl HISTORICAL RESULTS Hct 36.7(L) 40.7 - 50.3 % HISTORICAL RESULTS MCV 81.3 80.0 - 97.6 fl HISTORICAL RESULTS MCH 28.3 26.7 - 33.7 pg HISTORICAL RESULTS MCHC 34.8 32.7 - 35.5 g/dl HISTORICAL RESULTS Rdw 12.6 11.8 - 14.6 % HISTORICAL RESULTS Platelets 321 140 - 440 K/cumm HISTORICAL RESULTS MPV 8.1 6.8 - 10.4 fl HISTORICAL RESULTS Neutrophils 41.7 38.7 - 74.5 % HISTORICAL RESULTS Lymphocytes 41.2 20.0 - 54.3 % HISTORICAL RESULTS Monos 12.4 4.3 - 13.5 % HISTORICAL RESULTS Eosinophils 3.8 0.0 - 6.0 % HISTORICAL RESULTS Basophils 0.9 0.0 - 3.0 % HISTORICAL RESULTS Neutrophils, abs 2.4 1.8 - 6.6 K/cumm HISTORICAL RESULTS Lymphocytes, abs 2.4 1.2 - 3.3 K/cumm HISTORICAL RESULTS Monocytes, absolute 0.7 0.2 - 1.2 K/cumm HISTORICAL RESULTS Eosinophils, abs 0.2 0.0 - 0.5 K/cumm HISTORICAL RESULTS Basophils, abs 0.1 0.0 - 0.2 K/cumm HISTORICAL RESULTS Blood specimen (specimen) 11/05/2013 9:37 AM CDT Ana Cruz MD LAB BLOOD ORDERABLES Fi nal Result HISTORICAL RESULTS * (ABNORMAL) Blood D-dimer (11/05/2013 9:37 AM CDT) D-dimer 285(H) 110 - 230 ng/ml D-DU HISTORICAL RESULTS Comment: Interpretive Data This D-dimer test is approved by the FDA to exclude suspected PE and DVT in outpatients when the result is <230 ng/mL in conjunction with a pre-test probability score of low or moderate using the Wells criteria. Current Interpretive Data was last revised on 2012. Blood specimen (specimen) 11/05/2013 9:37 AM CDT Ana Cruz MD LAB BLOOD ORDERABLES Fi nal Result HISTORICAL RESULTS * XR Chest Pa Lateral 2 Views (11/05/2013 9:15 AM CDT) Anatomical Region Laterality Modality Body, Chest N/A Radiographic Toma ging 11/05/2013 9:15 AM CDT Narrative 11/05/2013 10:39 AM CDT Dorys CABRERA M.D. FINAL REPORT The radiology attending physician has personally reviewed this study, and has reviewed and/or edited this written report and agrees with it. ACC# ??Date Time ??Exam [id number] Nov 05, 2013 09:15:00 [id number] Chest 2 views Frontl & Lat EXAMINATION: ?? CHEST 2 VIEWS ?? IMPRESSION: No prior examination is available for comparison. The lungs are clear. No pneumothorax or pleural effusion. Heart size and mediastinal contour are normal. ?? Requested By: ANA CRUZ M.D. Dictated By: ?? ALBINA BATISTA M.D. ??on Nov 05 2013 ??9:37A This document has been electronically signed by: MIKEY MURPHY M.D. on Nov 05 2013 10:39A Procedure Note Provider, MD Zev - 01/26/2017 Dorys CABRERA M.D. FINAL REPORT The radiology attending physician has personally reviewed this study, and has reviewed and/or edited this written report and agrees with it. ACC# Date Time Exam [id number] Nov 05, 2013 09:15:00 [id number] Chest 2 views Frontl & Lat EXAMINATION: CHEST 2 VIEWS IMPRESSION: No prior examination is available for comparison. The lungs are clear. No pneumothorax or pleural effusion. Heart size and mediastinal contour are normal. Requested By: ANA CRUZ M.D. Dictated By: ALBINA BATISTA M.D. on Nov 05 2013 9:37A This document has been electronically signed by: MIKEY MURPHY M.D. on Nov 05 2013 10:39A [facility] Provider IMG XR PROCEDURES Final R esult * ELECTROCARDIOGRAPHY (ECG) (11/05/2013) Narrative 11/05/2013 Ordered by an unspecified provider. [facility] Provider ECG ORDERABLES Final Res ult * ELECTROCARDIOGRAPHY (ECG) (11/05/2013) Narrative 11/05/2013 Ordered by an unspecified provider. [facility] Provider ECG ORDERABLES Final Res ult * ELECTROCARDIOGRAPHY (ECG) (11/05/2013) Narrative 11/05/2013 Ordered by an unspecified provider. [facility] Provider ECG ORDERABLES Final Res ult documented in this encounter Visit Diagnoses Diagnosis Other chest pain Type 2 or unspecified type diabetes mellitus with other specified manifestations Dizziness and giddiness Hypertensive kidney disease with chronic kidney disease, stage 1-4 Esophageal reflux Anemia of other chronic disease Chronic kidney disease Chronic kidney disease, unspecified Other and unspecified hyperlipidemia Insulins and antidiabetic agents causing adverse effect in therapeutic use Encounter for long-term (current) use of insulin (HCC) Encounter for long-term (current) use of insulin documented in this encounter
--- OUTSIDE RECORDS SUMMARY | 2024-08-18 13:15 | XMS_ITS | Encounter Summary ---
Author Organization [facility] [facility] Address [address] [facility] [address] [place] [address] Care Team Providers Care Coffee Bar Attendant Name Role Phone Jhonatan Bellamy MD Primary Care Provider [phone]- [phone] Reason for Visit * Reason Comments Hospital Follow Up sob/chf Encounter Details Date Type Department Care Team (Late st Contact Info) Description 07/19/2017 10:15 AM EMOTIONAL DISABILITIES TEACHER Office Visit [facility] [address] [phone] Abelardo Petit MD [address] [facility] [address] [address] History of coronary artery stent placement (Primary Dx); 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[place] artery of [place] heart with stable angina pectoris (CMS/HCC) Social History Tobacco Use Types Packs/Day Years Used Date Smoking Tobacco: Never Smokeless Tobacco: Former Alcohol Use Standard Drinks/Week Comments No 0 (1 standard drink = 0.6 oz pur e alcohol) Sex and Gender Information Value Date Recorded Sex Assigned at Not on file Legal Sex Male 3:42 AM EMOTIONAL DISABILITIES TEACHER Gender Identity Not on file Sexual Orientation Not on file documented as of this encounter Last Filed Vital Signs Vital Sign Reading Time Taken Comments Blood Pressure 156/64 07/19/2017 10:34 AM EMOTIONAL DISABILITIES TEACHER Pulse 69 07/19/2017 10:34 AM EMOTIONAL DISABILITIES TEACHER Temperature - - Respiratory Rate - - Oxygen Saturation 98% 07/19/2017 10:34 AM EMOTIONAL DISABILITIES TEACHER Inhaled Oxygen Concentration - - Weight 116.6 kg (257 lb) 07/19/2017 10:34 AM EMOTIONAL DISABILITIES TEACHER Height 177.8 cm (5' 10 ) 07/19/2017 10:34 AM EMOTIONAL DISABILITIES TEACHER Body Mass Index 36.88 07/19/2017 10:34 AM EMOTIONAL DISABILITIES TEACHER documented in this encounter Progress Notes * Abelardo Petit MD - 07/19/2017 10:15 AM CST [facility] CLINIC FOLLOW UP 07/19/2017 Juvenal Daigle is a 46 y.o. male who presents for follow up of coronary artery disease. This is apatient with a history of recently diagnosed coronary disease in March of 2017. He presented with ischemic chest pain and had enzyme evidence of a non ST elevation [place]. He underwent catheterization and was found to have a high-grade stenosis in the distal right coronary artery bridging over the origin of his shade cutter lateral branch. He also has diffuse non flow limiting disease elsewhere. There shimon 80% ostial stenosis of a very small 1st marginal branch of his circumflex which is being treatedmedically. The patient's other comorbidities include hypertension advanced chronic kidney disease and longstanding diabetes. He has significant anemia of chronic disease as well. The patient was rehospitalized at [facility] in April of 2017 with some dyspnea [...] he is systemically anticoagulated with apixaban. The Up since his last appointment 1 month ago the patient was once again hospitalized for about a week at [facility] with symptomatic shortness of breath and was felt to be problematically anemic his hemoglobin was as low as 6.8. In addition to his coronary artery disease and modest ischemic LV dysfunction as described above he also has significant renal insufficiency and chronic anemia as result of this that is complicating his treatment and management. He describes no cardiovascular symptoms of anysignificance since his recent hospitalization. He did have an episode of chest pain a couple of days ago that was mild that occurred after he got into an argument/disagreement with his daughter. Had a lengthy discussion about his ability to go back to work. There is a form from his employer here requesting a return to work date an authorization. It is my opinion that he probably will not be able to go back to a job that requires manual exertion. He works for the [employer] at [employer] and we need to contact them and find out what options he has in terms of a position that would might not require manual labor. REVIEW OF SYSTEMS General ROS: negative for [...] BY MOUTH EVERY 8 HOURS, Disp: 90 tablet,Rfl: 5 ??? insulin glargine (LANTUS) 100 unit/mL [...] LABALBU PHYSICAL EXAM There were no vitals filed for this visit. Physical Examination: General appearance [...] rashes, no suspicious skin lesions noted ASSESSMENT Diagnoses and all orders for this visit: History of coronary artery stent placement 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[place] artery of [place] heart with stable angina pectoris (CMS/HCC) PLAN/RECOMMENDATIONS No change in cardiovascular regimen Continues to follow up closely with his road train driver in terms of his renal insufficiency and diuretic management Will have to contact his employer to find out if he has options that do not require significant manual exertion. Abelardo Petit MD IONAL DISABILITIES TEACHER documented in this encounter Plan of Treatment Not on file documented as of this encounter Visit Diagnoses Diagnosis History of coronary artery stent placement- Primary 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[place] artery of [place] heart with stable angina pectoris (HCC) documented in this encounter Discontinued Medications Medication Sig Discontinue Reason Start Date End Da te metoprolol (LOPRESSOR) 100 mg tablet Take 100 mg by mouth 2 (two) times a day. Alternate therapy 07/19/2017 amLODIPine (NORVASC) 5 mg tablet Take 2 tablets (10 mg total) by mouth daily. Alternate therapy 05/05/2017 07/19/2017 documented as of this encounter Historical Medications * This list may reflect changes made after this encounter. doxycycline (VIBRAMYCIN) 100 mg capsule Take 100 mg by mouth 2 (two) times a day. 01/20/2021 added in this encounter Care Teams Coffee Bar Attendant Relationship Specialty Start Date End Date Jhonatan Bellamy [place] [address] PCP - General 03/25/15 04/16/18 documented as of this encounter
--- OUTSIDE RECORDS SUMMARY | 2024-08-18 13:15 | XMS_ITS | Encounter Summary ---
Author Organization [facility] Address [address] [facility] [address] [place] [address] Care Team Providers Care Stamp Mounter Name Role Phone Jhonatan Bellamy MD Primary Care Provider [phone]- [phone] Encounter Details Date Type Department Care Team (Late st Contact Info) Description 06/13/2017 Telephone [facility] [address] [phone] Abelardo Petit MD [address] [facility] [address] [address] Social History Tobacco Use Types Packs/Day Years Used Date Smoking Tobacco: Never Smokeless Tobacco: Former Alcohol Use Standard Drinks/Week Comments No 0 (1 standard drink = 0.6 oz pur e alcohol) Sex and Gender Information Value Date Recorded Sex Assigned at Not on file Legal Sex Male 3:42 AM UNIVERSITY INTERN Gender Identity Not on file Sexual Orientation Not on file documented as of this encounter Ordered Prescriptions Prescription Sig Dispense Quantity Refills Last Filled Start Date End Date terazosin (HYTRIN) 2 mg capsule Take 1 capsule (2 mg total) by mouth nightly. 30 capsule 5 06/13/2017 8 documented in this encounter Miscellaneous Notes * Telephone Encounter - Lissy Schneider MA - 06/13/2017 5:05 PM CDT Spoke with pharmacist. States that insurance will not pay for pt to take medication bid. Will need Pa. Faxing over request. documented in this encounter Plan of Treatment Not on file documented as of this encounter Visit Diagnoses Not on filedocumented in this encounter Discontinued Medications Medication Sig Discontinue Reason Start Date End Da te terazosin (HYTRIN) 2 mg capsule Take 1 capsule (2 mg total) by mouth 2 (two) times a day. Reorder 06/12/2017 06/13/2017 documented as of this encounter Care Teams Stamp Mounter Relationship Specialty Start Date End Date Jhonatan Bellamy MD [address] [place] [address] PCP - General 03/25/15 04/16/18 documented as of this encounter
--- OUTSIDE RECORDS SUMMARY | 2024-08-18 13:15 | XMS_ITS | Encounter Summary ---
Author Organization [facility] Healthcare Address [address] [place] [address] Care Team Providers Care Associate Professor Of Criminal Justice Name Role Phone Jhonatan Bellamy MD Primary Care Provider +1- [phone] Encounter Details Date Type Department Care Team (Latest Contact Info) Description 06/13/2017 8:00 AM CDT - 06/13/2017 11:01 AM T Hospital Encounter [facility] OP INTERIM [phone] Corine Arriaga MD [address] [place] [address] Discharge Disposition: Discharge to home or self care Social History Tobacco Use Types Packs/Day Years Used Date Smoking Tobacco: Never Smokeless Tobacco: Former Alcohol Use Standard Drinks/Week Comments No 0 (1 standard drink = 0.6 oz pur e alcohol) Sex and Gender Information Value Date Recorded Sex Assigned at Not on file 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 Up to 3 doses 100 tablet 3 05/04/2017 8 amLODIPine (NORVASC) 5 mg tablet Take 2 tablets (10 mg total) by mouth daily. 90 tablet 1 05/05/2017 7 apixaban (ELIQUIS) 5 mg tablet Take 1 [...] every morning. 30 tablet 5 06/12/2017 8 metoprolol (LOPRESSOR) 100 mg tablet Take 100 mg by mouth 2 (two) times a day. 7 raNITIdine (ZANTAC) 300 mg tablet Take 300 mg by mouth 2 (two) times a day. 1 simvastatin (ZOCOR) 40 mg tablet Take 40 mg by mouth nightly. 1 documented as of this encounter Discharge Disposition Disposition Code Departure Means Destination Discharge to home or self care documented in this encounter Miscellaneous Notes * Op Note - Provider, MD Zev - 06/13/2017 12:00 AM CDT [facility] Patient: JUVENAL GARVIN Account: [id number] Room No: : 1970 Proc. Date: 06/13/2017 Surgeon: CORINE ARRIAGA M.D. Admit Date: 06/13/2017 Disch. 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 ANESTHESIA General with LMA. PROCEDURE Cataract removal by phacoemulsification and implantation of +21.5 diopter Tecnis [id number] lens right eye. DESCRIPTION OF THE PROCEDURE The patient was explained that the risks of surgery included endophthalmitis, bleeding, ptosis, diplopia, need for additional eye surgeries, need for glasses, glaucoma, macular edema, corneal decompensation, retinal detachment, loss of vision, loss of eye. Patient requested general anesthesia as he was claustrophobic, the risks of general anesthesia were also explained. He agreed to proceed and signed the consent form. The right side of the forehead was marked with a marking pen. He was then taken to the operative suite and placed on monitoring devices. After a verbal timeout to verify the patient's name, surgery to be performed, surgical site as well as allergies; he was intubated with LMA by the Anesthesia team. After prepping and draping the right eye in usual sterile ophthalmic manner, Angel speculum was placed. A 1.2 mm MVR blade was used to create 2 paracenteses at 11 and 6 o'clock positions. Viscoat was injected. A 2.4 mm keratome was used to create a clear temporal incision. A cystotome was used to initiate rhexis, this was completed to a curvilinear rhexis using Utrata forceps. After decompressing some of the viscoelastic out of the eye, BSS was used to perform hydrodissection. At this phase, the nucleus prolapsed into the anterior chamber. It was removed by phacoemulsification without any complications. Bimanual I and A was used to aspirate the epinuclear ad cortical remnants. Provisc was injected into the capsular bag. After verbally and visually verifying that a 21.5 diopter Tecnis [id number] was the correct lens for this pt, it was placed in the cartridge and was injected into the capsular bag.Bimanual I and A was used to aspirate the viscoelastic. Then, BSS was injected into the anterior chamber to reform the chamber and stromal hydration was performed along the paracenteses sites. After drying the wounds with Weck-Margi sponges, and making sure the woundswere water-tight, ReSure glue was applied. After waiting for a few minutes for the glue to polymerize, the speculum and drapes were removed. The eyelids were cleaned with sterile gauze. Bacitracin ointment was applied and an eye pad and a shield were placed. Patient was successfully extubated by the Anesthesia team, was taken to the recovery unit in stable condition. COMPLICATIONS None. BLOOD LOSS None. SPECIMENS REMOVED None. SPONGE AND NEEDLE COUNT Even. Electronically Authenticated and Edited by: Corine Arriaga MD On 06/13/2017 05:06 PM CDT Dorys RUBIO/ro TD: 06/13/2017 10:28 documented in this encounter Plan of Treatment Not on file documented as of this encounter Procedures Procedure Name Priority Date/Time Associated Diagnosis Comments GLUCOSE POC Routine 06/13/2017 8:37 AM CDT DISCHARGE LABORATORY CUMULATIVE REPORT 06/13/2017 12:00 AM CDT documented in this encounter Results * Glucose POC (06/13/2017 8:37 AM CDT) Glucose, POC 158 70 - 199 mg/dL ALESSANDRA JAMES Comment: Interpretive Data Glucose is assumed to be non-fasting. Fasting Glucose reference ranges are: 0 - 150 years: ??70 mg/dL - 99 mg/dL Current interpretive data was last revised on 2014. Blood specimen (specimen) 06/13/2017 8:37 AM CDT 06/13/2017 8:37 AM CDT Corine Arriaga MD POINT OF CARE TEST ORDERABLES Final Result [facility]DRA [facility] [address] [facility] [place] [address] * DISCHARGE LABORATORY CUMULATIVE REPORT (06/13/2017 12:00 AM CDT) Narrative 06/13/2017 12:00 AM CDT Ordered by an unspecified provider. Historical Provider LAB BLOOD ORDERABLES Ann Marie l Result documented in this encounter Visit Diagnoses Not on filedocumented in this encounter Care Teams Associate Professor Of Criminal Justice Relationship Specialty Start Date End Date Jhonatan Bellamy MD [address] [place] [address] PCP - General 03/25/15 04/16/18 documented as of this encounter
--- OUTSIDE RECORDS SUMMARY | 2024-08-18 13:15 | XMS_ITS | Encounter Summary ---
Author Organization [facility] Medical Group Address [address] [address] Care Team Providers Care Field Pipe Lines Supervisor Name Role Phone Jhonatan Bellamy MD Primary Care Provider +1- [phone] Encounter Details Date Type Department Care Team (Late st Contact Info) Description 05/25/2017 Telephone [facility] [address] [phone] Abelardo Petit MD 6810 [facility] [address] [address] Social History Tobacco Use Types Packs/Day Years Used Date Smoking Tobacco: Never Smokeless Tobacco: Former Alcohol Use Standard Drinks/Week Comments No 0 (1 standard drink = 0.6 oz pur e alcohol) Sex and Gender Information Value Date Recorded Sex Assigned at Not on file 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 Claim number [id number]. Also pt needs note re FMLA (incident [id number]) stating pt's leave is extended to Jun. Fax [phone] Attention Marcelino Brock Told pt I will send the requested information today or tomorrow. documented in this encounter Plan of Treatment Not on file documented as of this encounter Visit Diagnoses Not on filedocumented in this encounter Care Teams Field Pipe Lines Supervisor Relationship Specialty Start Date End Date Jhonatan Bellamy MD [address] [place] [address] PCP - General 03/25/15 04/16/18 documented as of this encounter
--- OUTSIDE RECORDS SUMMARY | 2024-08-18 13:15 | XMS_ITS | Encounter Summary ---
Author Organization [facility] Medical Group Address [address] [address] Care Team Providers Care Compounder Sterile Products Name Role Phone Jhonatan Bellamy MD Primary Care Provider +1- [phone] Encounter Details Date Type Department Care Team (Late st Contact Info) Description 08/07/2017 Telephone [facility] [address] [phone] Abelardo Petit MD 6810 [facility] [address] [address] Social History Tobacco Use Types Packs/Day Years Used Date Smoking Tobacco: Never Smokeless Tobacco: Former Alcohol Use Standard Drinks/Week Comments No 0 (1 standard drink = 0.6 oz pur e alcohol) Sex and Gender Information Value Date Recorded Sex Assigned at Not on file 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 Will call patient when it's ready. LE GRADER * Telephone Encounter - Lisa Diaz RN - 08/07/2017 3:55 PM CST Pt needs note stating that he has been under the care of Dr Petit. He had an AL and subsequent stent placement and has been unable to work since March. Will check with Dr Petit. 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 LE GRADER * Telephone Encounter - Lisa Diaz RN - 08/07/2017 3:07 PM CST Called pt, told him that Disability paperwork has been faxed and confirmation received. LMOM LE GRADER * Telephone Encounter - Lisa Diaz RN - 08/07/2017 1:34 PM CST Pt said he's having cataract surgery Next week. He needs clearance for the surgery. Will check withdr Petit . Pt did not go back to work last week because they want him to complete ADA paperworkfirst and he has not received it. LE GRADER * Telephone Encounter - Elsie Holly RN - 08/07/2017 12:33 PM SAMPLE GRADER I did not receive any forms on Monday. LE GRADER * Telephone Encounter - Lisa Diaz RN - 08/07/2017 12:02 PM CST Pt said he dropped off forms on Monday for his short term disability. Told pt I don not have those forms, will check with the nurse that was here on Monday. LE GRADER documented in this encounter Plan of Treatment Not on file documented as of this encounter Visit Diagnoses Not on filedocumented in this encounter Care Teams Compounder Sterile Products Relationship Specialty Start Date End Date Jhonatan Bellamy MD [place] [place] [address] PCP - General 03/25/15 04/16/18 documented as of this encounter
--- OUTSIDE RECORDS SUMMARY | 2024-08-18 13:15 | XMS_ITS | Encounter Summary ---
Author Organization [facility] Medical Group Address [address] [address] Care Team Providers Care Instrument And Control Technician Name Role Phone Jhonatan Bellamy MD Primary Care Provider +1- [phone] Encounter Details Date Type Department Care Team (Late st Contact Info) Description 08/22/2017 Telephone [facility] [address] [phone] Abelardo Petit MD [address] 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 todl pt that we will refax them. ENGER FLAGMAN * Telephone Encounter - Lisa Diaz RN - 08/22/2017 11:31 AM CST Pt notified that forms were completed and faxed last week. ENGER FLAGMAN documented in this encounter Plan of Treatment Not on file documented as of this encounter Visit Diagnoses Not on filedocumented in this encounter Care Teams Instrument And Control Technician Relationship Specialty Start Date End Date Jhonatan Bellamy MD [address] [place] [address] PCP - General 03/25/15 04/16/18 documented as of this encounter
--- OUTSIDE RECORDS SUMMARY | 2024-08-18 13:15 | XMS_ITS | Encounter Summary ---
Author Organization [facility] Healthcare Address [address] [place] [address] Care Team Providers Care Flight Line Service Attendant Name Role Phone Jhonatan Bellamy MD Primary Care Provider +1- [phone] Encounter Details Date Type Department Care Team (Latest Contact Info) Description 09/19/2017 11:58 AM STREETCAR REPAIRER - 09/19/2017 4:33 PM [facility] Hospital Encounter [facility] OP INTERIM [phone] Zully Arriaga MD [address] [place] [address] Discharge Disposition: Discharge to home or self care Social History Tobacco Use Types Packs/Day Years Used Date Smoking Tobacco: Never Smokeless Tobacco: Former Alcohol Use Standard Drinks/Week Comments No 0 (1 standard drink = 0.6 oz pur e alcohol) Sex and Gender Information Value Date Recorded Sex Assigned at Not on file Legal Sex Male 3:42 AM STREETCAR REPAIRER Gender Identity Not on file Sexual Orientation Not on file documented as of this encounter Medications at Time of Discharge aspirin 81 mg enteric coated tabletIndications: Myocardial Reinfarction Prevention Take 1 tablet (81 mg total) by mouth daily 11/07/2013 nitroglycerin (NITROSTAT) 0.4 mg SL tabletIndications: Coronary artery disease involving cabazon coronary artery of cabazon heart, angina presence unspecified Place 1 tablet [...] Associated Diagnosis Comments GLUCOSE POC Routine 09/19/2017 1:07 PM STREETCAR REPAIRER DISCHARGE LABORATORY CUMULATIVE REPORT 09/19/2017 12:00 [address] STREETCAR REPAIRER documented in this encounter Results * (ABNORMAL) Glucose POC (09/19/2017 1:07 PM STREETCAR REPAIRER) [facility] Glucose, POC 403(C) 70 - 199 mg/dL ALESSANDRA COLE Comment: Interpretive Data Glucose is assumed to be non-fasting. Fasting Glucose reference ranges are: 0 - 150 years: ??70 mg/dL - 99 mg/dL Current interpretive data was last revised on 2014. Glucose comment 1 RN/MD Notified ALESSANDRA COLE Blood specimen (specimen) 09/19/2017 1:07 PM STREETCAR REPAIRER 09/19/2017 1:07 PM STREETCAR REPAIRER Narrative ALESSANDRA COLE - 09/19/2017 1:15 PM STREETCAR REPAIRER Zully Arriaga MD POINT OF CARE TEST ORDERABLES Final Result [facility]ANDRA [facility] [address] [facility]. Department [place] [address] * DISCHARGE LABORATORY CUMULATIVE REPORT (09/19/2017 12:00 AM STREETCAR REPAIRER) Narrative 09/19/2017 12:00 AM STREETCAR REPAIRER Ordered by an unspecified provider. Zev Provider LAB BLOOD ORDERABLES Ann Marie l Result documented in this encounter Visit Diagnoses Not on filedocumented in this encounter Care Teams Flight Line Service Attendant Relationship Specialty Start Date End Date Jhonatan Bellamy MD [address] [place], [place] [id number] PCP - General 03/25/15 04/16/18 documented as of this encounter
--- OUTSIDE RECORDS SUMMARY | 2024-08-18 13:15 | XMS_ITS | Encounter Summary ---
Author Organization [facility] Medical Group Address [address] [address] Care Team Providers Care Chemical Engineering Technologist Name Role Phone Jhonatan Bellamy MD Primary Care Provider +1- [phone] Encounter Details Date Type Department Care Team (Late st Contact Info) Description 08/15/2017 Telephone [facility] [address] [phone] Abelardo Petit MD [address] 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 HE said he was in the hospital ,had a seizure on Monday and needs further testing. He did not stay in the hospital over paulette, he insisted on leaving. CLAIM CLERK documented in this encounter Plan of Treatment Not on file documented as of this encounter Visit Diagnoses Not on filedocumented in this encounter Care Teams Chemical Engineering Technologist Relationship Specialty Start Date End Date Jhonatan Bellamy MD [address] [place] [address] PCP - General 03/25/15 04/16/18 documented as of this encounter
--- OUTSIDE RECORDS SUMMARY | 2024-08-18 13:15 | XMS_ITS | Encounter Summary ---
Author Organization [facility] Medical Group Address [address] [address] Care Team Providers Care Blade Bender Furnace Tender Name Role Phone Jhonatan Bellamy MD Primary Care Provider +1- [phone] Encounter Details Date Type Department Care Team (Late st Contact Info) Description 05/26/2017 Telephone [facility] [address] [phone] Abelardo Petit MD 6810 [facility] [address] [address] Social History Tobacco Use Types Packs/Day Years Used Date Smoking Tobacco: Never Smokeless Tobacco: Former Alcohol Use Standard Drinks/Week Comments No 0 (1 standard drink = 0.6 oz pur e alcohol) Sex and Gender Information Value Date Recorded Sex Assigned at Not on file Legal 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 documented in this encounter Plan of Treatment Not on file documented as of this encounter Visit Diagnoses Not on filedocumented in this encounter Care Teams Blade Bender Furnace Tender Relationship Specialty Start Date End Date Jhonatan Bellamy MD [address] [place] [address] PCP - General 03/25/15 04/16/18 documented as of this encounter
--- OUTSIDE RECORDS SUMMARY | 2024-08-18 13:15 | XMS_ITS | Encounter Summary ---
Author Organization [facility] Medical Group Address [address] [address] Care Team Providers Care Nursing Officer Name Role Phone Jhonatan Bellamy MD Primary Care Provider +1- [phone] Encounter Details Date Type Department Care Team (Late st Contact Info) Description 09/07/2017 Telephone [facility] [address] [place] [phone] Carrington Weeks MD [address] [place] [address] Social History Tobacco Use Types Packs/Day Years Used Date Smoking Tobacco: Never Smokeless Tobacco: Former Alcohol Use Standard Drinks/Week Comments No 0 (1 standard drink = 0.6 oz pur e alcohol) Sex and Gender Information Value Date Recorded Sex Assigned at Not on file Legal 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 He wanted to make an appointment to discuss being released to go back to work without restrictions. Scheduled patient with Dr. Petit for 09/13/2017 at 9 am. ING MASTER documented in this encounter Plan of Treatment Not on file documented as of this encounter Visit Diagnoses Not on filedocumented in this encounter Care Teams Nursing Officer Relationship Specialty Start Date End Date Jhonatan Bellamy MD [address] [place] [address] PCP - General 03/25/15 04/16/18 documented as of this encounter
--- OUTSIDE RECORDS SUMMARY | 2024-08-18 13:15 | XMS_ITS | Encounter Summary ---
Author Organization [facility] Medical Group Address [address] [facility] [address] [place] [address] Care Team Providers Care Certified Vehicle Fire Investigator Name Role Phone Jhonatan Bellamy MD Primary Care Provider +1- [phone] Reason for Visit * Reason Comments Follow-up Encounter Details Date Type Department Care Team (Late st Contact Info) Description 09/13/2017 9:00 AM AIR SUPPORT OPERATIONS OPERATOR Office Visit [facility] [address] [phone] Abelardo Petit MD [address] [place] [id number] History of coronary artery stent placement (Primary Dx); Chronic kidney disease, stage III (moderate); 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[place] artery of [place] heart with stable angina pectoris (CMS/HCC) Social History Tobacco Use Types Packs/Day Years Used Date Smoking Tobacco: Never Smokeless Tobacco: Former Alcohol Use Standard Drinks/Week Comments No 0 (1 standard drink = 0.6 oz pur e alcohol) Sex and Gender Information Value Date Recorded Sex Assigned at Not on file Legal Sex Male 3:42 AM AIR SUPPORT OPERATIONS OPERATOR Gender Identity Not on file Sexual Orientation Not on file documented as of this encounter Last Filed Vital Signs Vital Sign Reading Time Taken Comments Blood Pressure 126/48 09/13/2017 8:59 AM AIR SUPPORT OPERATIONS OPERATOR Pulse 68 09/13/2017 8:59 AM AIR SUPPORT OPERATIONS OPERATOR Temperature - - Respiratory Rate - - Oxygen Saturation 98% 09/13/2017 8:59 AM AIR SUPPORT OPERATIONS OPERATOR Inhaled Oxygen Concentration - - Weight 117 kg (258 lb) 09/13/2017 8:59 AM AIR SUPPORT OPERATIONS OPERATOR Height 177.8 cm (5' 10 ) 09/13/2017 8:59 AM AIR SUPPORT OPERATIONS OPERATOR Body Mass Index 37.02 09/13/2017 8:59 AM AIR SUPPORT OPERATIONS OPERATOR documented in this encounter Progress Notes * Abelardo Petit MD - 09/13/2017 9:00 AM CST [facility] FOLLOW UP 09/13/2017 Juvenal Daigle is a 47 y.o. male who presents for follow up of coronary artery disease. This is apatient was found to have CAD in March of 2017 when he presented with ischemic chest pain and enzyme evidence of a non ST elevation PR. He underwent catheterization in 5 of was found to have high-grade stenosis in the distal right coronary artery bridging over the origin of the console operator lateral branch. He also had diffuse non [...] return to employment. 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 REVIEW OF SYSTEMS General ROS: negative for [...] exists for component: LABALBU PHYSICAL EXAM Vitals: 09/13/17 0859 BP: 126/48 Pulse: 68 SpO2: 98% Physical Examination: General appearance - [...] visit: History of coronary artery stent placement Chronic kidney disease, stage III (moderate) 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[place] artery of [place] heart with stable angina pectoris ([facility]) PLAN/RECOMMENDATIONS For now no change in medical [...] him lose his job. Abelardo Petit MD SUPPORT OPERATIONS OPERATOR documented in this encounter Plan of Treatment Not on file documented as of this encounter Visit Diagnoses Diagnosis History of coronary artery stent placement- Primary Chronic kidney disease, stage III (moderate) (HCC) Chronic kidney disease, Stage III (moderate) 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kl[place] ka[place] artery of kl[place] ka[place] heart with stable angina pectoris (HCC) documented in this encounter Care Teams Certified Vehicle Fire Investigator Relationship Specialty Start Date End Date Jhonatan Bellamy MD [address] [place] [address] PCP - General 03/25/15 04/16/18 documented as of this encounter
--- OUTSIDE RECORDS SUMMARY | 2024-08-18 13:15 | XMS_ITS | Encounter Summary ---
Author Organization [facility] Address [address] [address] Care Team Providers Care Decorative Cutting Machine Tender Name Role Phone Jhonatan Bellamy MD Primary Care Provider [phone] Encounter Details Date Type Department Care Team (Late st Contact Info) Description 05/01/2017 Telephone [facility] [address] [place] [address] Myrna Easton NP 6810 [facility] [address] [place] [address] Social History Tobacco Use Types Packs/Day Years Used Date Smoking Tobacco: Never Assessed Sex and Gender Information Value Date Recorded Sex Assigned at Not on file Legal Sex Male 3:42 AM MEDICAL FIELD REPRESENTATIVE Gender Identity Not on file Sexual Orientation Not on file documented as of this encounter Miscellaneous Notes * Telephone Encounter - Lisa Diaz RN - 05/01/2017 4:33 PM CDT Again spoke with pt and faxed a note to Jr stating that patient should remain off of work until after 05/11/17 when he will be seen in the office. * Telephone Encounter - Lisa Diaz RN - 05/01/2017 4:00 PM CDT Patient needs A note faxed to his STD including claim number [id number] that includes his estimated RTW . Pt has appt with ORCHID GROWER next week on May 11 . Told patient that RTW date will determined at that time. Patient said that they need clinical information sent also. Told patient that is an odd request, usually STD faxes a form for completion or requests the needed info in writing, Pt did not havethe name of the person he spoke to at [facility], said it was an unusual name . Told patient to have [facility] fax a request for the needed info to make teresa ewe are supplying the appropriate information . Patient agreeable. documented in this encounter Plan of Treatment Not on file documented as of this encounter Visit Diagnoses Not on filedocumented in this encounter Care Teams Decorative Cutting Machine Tender Relationship Specialty Start Date End Date Jhonatan Bellamy MD [address] [place] [place] [address] PCP - General 03/25/15 04/16/18 documented as of this encounter
--- OUTSIDE RECORDS SUMMARY | 2024-08-18 13:15 | XMS_ITS | Encounter Summary ---
Author Organization [facility] Address [address] [address] Care Team Providers Care Bellman Driver Name Role Phone Jhonatan Bellamy MD Primary Care Provider [phone] Encounter Details Date Type Department Care Team (Late st Contact Info) Description 05/31/2017 Telephone [facility] [address] [address] Abelardo Petit MD 6810 [facility] [address] [address] Social History Tobacco Use Types Packs/Day Years Used Date Smoking Tobacco: Never Smokeless Tobacco: Former Alcohol Use Standard Drinks/Week Comments No 0 (1 standard drink = 0.6 oz pur e alcohol) Sex and Gender Information Value Date Recorded Sex Assigned at Not on file Legal Sex Male 3:42 AM BOX STAMPER Gender Identity Not on file Sexual Orientation Not on file documented as of this encounter Miscellaneous Notes * Telephone Encounter - Lisa Diaz RN - 05/31/2017 3:41 PM CDT Called pt, [facility] still does not have everything they need. Had patient give the phone number for Marcelino To who is handling the case for pt Contact for Marcelino is [phone] . He wants documentation of patient's medical condition. Send all records, including early May office note. Form ws faxed previously ,refaxed. documented in this encounter Plan of Treatment Not on file documented as of this encounter Visit Diagnoses Not on filedocumented in this encounter Care Teams Bellman Driver Relationship Specialty Start Date End Date Jhonatan Bellamy MD [address] [place], [place] [id number] PCP - General 03/25/15 04/16/18 documented as of this encounter
--- OUTSIDE RECORDS SUMMARY | 2024-08-18 13:15 | XMS_ITS | Encounter Summary ---
Author Organization [facility] Address [address] [place] [address] Care Team Providers Care Cafe Aide Name Role Phone Jhonatan Bellamy MD Primary Care Provider [phone]- [phone] Encounter Details Date Type Department Care Team (Latest Contact Info) Description 09/26/2017 11:05 AM PRODUCE SORTER - 09/26/2017 2:33 PM [facility] Hospital Encounter [facility] OP INTERIM [phone] Corine Arriaga MD [address] [place] [address] Discharge Disposition: Discharge to home or self care Social History Tobacco Use Types Packs/Day Years Used Date Smoking Tobacco: Never Smokeless Tobacco: Former Alcohol Use Standard Drinks/Week Comments No 0 (1 standard drink = 0.6 oz pur e alcohol) Sex and Gender Information Value Date Recorded Sex Assigned at Not on file Legal Sex Male 3:42 AM PRODUCE SORTER Gender Identity Not on file Sexual Orientation Not on file documented as of this encounter Medications at Time of Discharge aspirin 81 mg enteric coated tabletIndications: Myocardial Reinfarction Prevention Take 1 tablet (81 mg total) by mouth daily 11/07/2013 nitroglycerin (NITROSTAT) 0.4 mg SL tabletIndications: Coronary artery disease involving [place] coronary artery of [place] heart, angina presence unspecified Place 1 tablet [...] Op Note - Provider, MD Zev - 09/26/2017 12:00 AM CST [facility] Patient: JUVENAL GARVIN Account: [id number] Room No: : 1970 Proc. Date: 09/26/2017 Surgeon: CORINE ARRIAGA M.D. Admit Date: 09/26/2017 Disch. Date: 09/26/2017 Patient Type: SDS OPERATIVE REPORT SURGEON Corine Arriaga MD PREOPERATIVE DIAGNOSIS Early onset, diabetes related secondary combined cataract, left eye. POSTOPERATIVE DIAGNOSIS Early onset, diabetes related secondary combined cataract, left eye. ANESTHESIA Topical with MAC. PROCEDURE Cataract removal by phacoemulsification, use of Malyugin Ring and implantation of +21 diopter Tecnis [id number] lens left eye. DESCRIPTION OF THE PROCEDURE The patient was explained that the risks of the surgery included endophthalmitis, bleeding, ptosis, diplopia, need for additional eye surgeries, need for glasses, glaucoma, macular edema, corneal decompensation, retinal detachment, loss of vision, loss of eye. The patient understood these risks and signed the consent form. The left side of the forehead was marked with a marking pen. He was then taken to the operative suite and placed on monitoring devices. After a verbal time-out to verify the patient's name, surgery to be performed, surgical site as well as allergies, he was consciously sedated by the anesthesia team. After prepping and draping the left eye in the usual sterile ophthalmic manner, Angel speculum was placed. A 1.2 mm MVR blade was used to create 2 paracenteses at 5 and 12 o'clock positions. This was followed by injection of preservative- free lidocaine to the anterior chamber for ocular anesthesia. The pupil had not dilated adequately for the safe completion of surgery, so Malyugin ring was requested. Viscoat was injected into the anterior chamber. A 2.4 mm keratome was used to create a good temporal incision. Then the Malyugin ring was placed along the pupil rim and additional Viscoat was injected and a cystotome was used to initiate rhexis, this was completed to a curvilinear rhexis using Utrata forceps. After decompressing, some of the viscoelastic out of the eye, BSS was used to perform hydrodissection. After the rotation of the nucleus was confirmed, phacoemulsification was initiated. Nucleus was removed without any complications. Bimanual I and A was used to aspirate the epinuclear and cortical material. Capsular polishing was also performed. Provisc was injected into the capsular bag. After verbally and visually verifying that the 21 diopter Tecnis [id number] lens was the correct lens for this patient, and it was placed in the cartridge and was injected into the capsular bag. A Sinskey hook was used to align the IOL within the bag. Then the Malyugin ring was removed. Bimanual I and A was used to aspirate the viscoelastic thoroughly out of the eye. BSS was injected into the anterior chamber to re-form the chamber and stromal hydration was performed along the paracenteses sites. Intraocular pressure was physiologic upon palpation. The wounds were checked with fluorescein strips and found to be watertight. After drying the wounds with Weck-Margi sponges, ReSure glue was applied. After waiting for a few minutes for the glue to polymerize, the speculum and drapes were removed. The eyelids were cleaned with Sterile gauze and Polycin ointment was applied. A hard shield was placed. Patient tolerated the procedure well and was taken to the recovery room in stable condition. COMPLICATIONS None. BLOOD LOSS None. SPECIMENS REMOVED None. SPONGE, NEEDLE COUNTS Even. Electronically Authenticated and Edited by: Corine Arriaga MD On 09/26/2017 03:36 PM PRODUCE SORTER Dorys RUBIO/ro TD: 09/26/2017 15:09 documented in this encounter Plan of Treatment Not on file documented as of this encounter Procedures Procedure Name Priority Date/Time Associated Diagnosis Comments GLUCOSE POC Routine 09/26/2017 1:24 PM PRODUCE SORTER GLUCOSE POC Routine 09/26/2017 11:45 AM PRODUCE SORTER DISCHARGE LABORATORY CUMULATIVE REPORT 09/26/2017 12:00 AM PRODUCE SORTER documented in this encounter Results * Glucose POC (09/26/2017 1:24 PM PRODUCE SORTER) Glucose, POC 121 70 - 199 mg/dL ALESSANDRA COLE Comment: Interpretive Data Glucose is assumed to be non-fasting. Fasting Glucose reference ranges are: 0 - 150 years: ??70 mg/dL - 99 mg/dL Current interpretive data was last revised on 2014. Blood specimen (specimen) 09/26/2017 1:24 PM PRODUCE SORTER 09/26/2017 1:24 PM PRODUCE SORTER Narrative ALESSANDRA COLE - 09/26/2017 1:38 PM PRODUCE SORTER us Corine Arriaga MD POINT OF CARE TEST ORDERABLES Final Result Performing Organization Address City/State/[facility] Co de Phone Number [facility] [address] [facility] Department [place] [address] * Glucose POC (09/26/2017 11:45 AM PRODUCE SORTER) Glucose, POC 130 70 - 199 mg/dL ALESSANDRA COLE Comment: Interpretive Data Glucose is assumed to be non-fasting. Fasting Glucose reference ranges are: 0 - 150 years: ??70 mg/dL - 99 mg/dL Current interpretive data was last revised on 2014. Blood specimen (specimen) 09/26/2017 11:45 AM PRODUCE SORTER 09/26/2017 11:45 AM PRODUCE SORTER Narrative ALESSANDRA [facility] - 09/26/2017 11:50 AM PRODUCE SORTER us Corine Arriaga MD POINT OF CARE TEST ORDERABLES Final Result ALESSANDRA [facility] [address] [facility]. Department [place] [address] * DISCHARGE LABORATORY CUMULATIVE REPORT (09/26/2017 12:00 AM PRODUCE SORTER) Narrative 09/26/2017 12:00 AM PRODUCE SORTER Ordered by an unspecified provider. us Historical Provider LAB BLOOD ORDERABLES Ann Marie l Result documented in this encounter Visit Diagnoses Not on filedocumented in this encounter Care Teams Cafe Aide Relationship Specialty Start Date End Date Jhonatan Bellamy MD [address] [place], [place] [id number] PCP - General 03/25/15 04/16/18 documented as of this encounter
--- OUTSIDE RECORDS SUMMARY | 2024-08-18 13:16 | XMS_ITS | Encounter Summary ---
Author Organization [facility] Facility Care Team Providers Care Economics Analyst Name Role Phone Unavailable Primary Care Provider Unavailabl e Encounter Details Date Type Department Care Team (Late st Contact Info) Description 03/03/2012 12:44 PM CDT - 03/03/2012 5:09 PM T Hospital Encounter [facility] Patricio King MD [address] [place] [address] Contusion of multiple sites, not elsewhere classified; Essential hypertension; Type I diabetes mellitus (HCC); Disorder of kidney and ureter; Fall from other slipping, tripping, or stumbling; Place of occurrence, residential institution; Activities involving walking, marching and hiking; Civilian activity done for income or pay Social History Tobacco Use Types Packs/Day Years Used Date Smoking Tobacco: Never Assessed Sex and Gender Information Value Date Recorded Sex Assigned at Not on file Legal Sex Male 3:42 AM SKIVER COUNTER Gender Identity Not on file Sexual Orientation Not on file documented as of this encounter Plan of Treatment Not on file documented as of this encounter Visit Diagnoses Diagnosis Contusion of multiple sites, not elsewhere classified Essential hypertension Unspecified essential hypertension Type I diabetes mellitus (HCC) Type I (juvenile type) diabetes mellitus without mention of complication, not stated as uncontrolled Disorder of kidney and ureter Unspecified disorder of kidney and ureter Fall from other slipping, tripping, or stumbling Place of occurrence, residential institution Activities involving walking, marching and hiking Civilian activity done for income or pay documented in this encounter
--- OUTSIDE RECORDS SUMMARY | 2024-08-18 13:16 | XMS_ITS | Encounter Summary ---
Author Organization [facility] Facility Care Team Providers Care Plant Assigner Name Role Phone Unavailable Primary Care Provider Unavailabl e Encounter Details Date Type Department Care Team (Late st Contact Info) Description 01/25/2011 - 08/20/2011 11:59 PM IRRIGATION SYSTEM OPERATOR Hospital Encounter [facility] Social History Tobacco Use Types Packs/Day Years Used Date Smoking Tobacco: Never Assessed Sex and Gender Information Value Date Recorded Sex Assigned at Not on file Legal Sex Male 3:42 AM IRRIGATION SYSTEM OPERATOR Gender Identity Not on file Sexual Orientation Not on file documented as of this encounter Plan of Treatment Not on file documented as of this encounter Visit Diagnoses Not on filedocumented in this encounter
--- OUTSIDE RECORDS SUMMARY | 2024-08-18 13:16 | XMS_ITS | Encounter Summary ---
Author Organization [facility] Facility Care Team Providers Care Ground Systems Engineer Name Role Phone Unavailable Primary Care Provider Unavailabl e Encounter Details Date Type Department Care Team (Late st Contact Info) Description 03/08/2012 - 08/20/2012 11:59 PM MATE SHIP Hospital Encounter [facility] Social History Tobacco Use Types Packs/Day Years Used Date Smoking Tobacco: Never Assessed Sex and Gender Information Value Date Recorded Sex Assigned at Not on file Legal Sex Male 3:42 AM MATE SHIP Gender Identity Not on file Sexual Orientation Not on file documented as of this encounter Plan of Treatment Not on file documented as of this encounter Visit Diagnoses Not on filedocumented in this encounter
--- OUTSIDE RECORDS SUMMARY | 2024-08-18 13:16 | XMS_ITS ---
Author Organization [facility] Address [address] [place] [address] Care Team Providers Care Information Services Tech Name Role Phone Aditya Castro MD Primary Care Provider [phone] Alondra Lambert RN Unavailable [phone] Shannon Brock MD, [place] P. Unavailable [phone] Leandro Reyes MD Unavailable [phone] Transplant Episode Kidney Candidate [facility] ([place], [place]) - [facility] Evaluation began on 05/10/2024 Marked as Active on 05/10/2024 Reason: Evaluation - Standard Kidney CoordinatorAlondra Lambert RN Fax: N/A Email: N/A Scores Score Value Updated Exceptions/Reas ons CPRA Not available EPTS (Calc) 78 08/18/2024 Care Team Name Role Phone Fax Email Alondra Lambert RN Kidney Coordinator [phone] N/A N/A Melany Kelly Primary Stove Tender N/A N/A N/A Chris Richard Music Director N/A N/A N/A Events Pre-Transplant Referred: 03/06/2024 Evaluation began: 05/10/2024 Appointments (07/19/2024 - 09/18/2024) When With Visit Type Description 07/29/2024 Radiology X-Ray Visit End stage renal disease (CMS/HCC) (HCC) 07/29/2024 Radiology X-Ray Visit End stage renal disease (CMS/HCC) (HCC) 07/29/2024 Radiology HOSPITAL OUTPATIENT VISIT En d stage renal disease (CMS/HCC) (HCC) 07/29/[address] Scan End s tage renal disease (CMS/HCC) (HCC) 07/29/2024 Transplant HOSPITAL OUTPATI ENT VISIT 07/29/2024 Pulmonary Re HOSPITAL OUTPATI ENT VISIT 07/29/2024 Transplant - Siddhartha Bartholomew New Pre-transplant evaluation for kidney transplant (Primary Dx); End stage renal disease (CMS/HCC) (HCC); Status post coronary artery bypass grafting; Status post aortic valve replacement; 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
--- OUTSIDE RECORDS SUMMARY | 2024-08-18 13:33 | XMS_ITS | Encounter Summary ---
Author Organization [facility] Address [address] [place] [address] Care Team Providers Care Wood Drill Operator Name Role Phone Aditya Castro MD Primary Care Provider [phone] Encounter Details Date Type Department Care Team (Late st Contact Info) Description 07/06/2023 External Device Data STL ABSTRACTION Provider, Abstract NO ADDRESS ON FILE Social History Tobacco Use Types Packs/Day Years [...] on filedocumented in this encounter Care Teams Wood Drill Operator Relationship Specialty Start Date End Date Aditya Castro MD PCP - General Student in an Organized Health Care Education/Training Program 09/11/18 documented as of this encounter
--- OUTSIDE RECORDS SUMMARY | 2024-08-18 13:33 | XMS_ITS | Encounter Summary ---
Author Organization [facility] Address [address] [place] [address] Care Team Providers Care Supervisor Treating And Pumping Name Role Phone Aditya Castro MD Primary Care Provider [phone] Reason for Visit * Reason Comments Med Refill Encounter Details Date Type Department Care Team (Late st Contact Info) Description 07/15/2023 Refill [facility] Oncology and Hematology - [place] [address] [facility] [[email or web address] [address] [place] [address] Fernando Schmid MD [address] [facility] [address] [place] [address] Social History Tobacco Use Types Packs/Day Years [...] on filedocumented in this encounter Care Teams Supervisor Treating And Pumping Relationship Specialty Start Date End Date Aditya Castro MD PCP - General Student in an Organized Health Care Education/Training Program 09/11/18 documented as of this encounter
--- OUTSIDE RECORDS SUMMARY | 2024-08-18 13:33 | XMS_ITS | Encounter Summary ---
Author Organization [facility] Address [address] [facility] Attn: Epic Prelude ADT [place] [address] Care Team Providers Care It Disaster Recovery Manager Name Role Phone Aditya Castro MD Primary Care Provider [phone] Encounter Details Date Type Department Care Team (Latest Contact Info) Description 09/21/2022 Travel Social History Tobacco Use Types Packs/Day Years Used Date Smoking Tobacco: Never Smokeless Tobacco: Never Alcohol Use Standard Drinks/Week Comments No 0 (1 standard drink = 0.6 oz pur e alcohol) Sex and Gender Information Value Date Recorded Sex Assigned at Not on file Gender Identity Not on file Sexual Orientation Not on file COVID-19 Exposure Response Date Recorded In the last 10 days, have yo u been in contact with someone who was confirmed or suspected to have Coronavirus/COVID-19? No / Unsure 09/21/2022 11:32 AM LINE DEPARTMENT SUPERVISOR documented as of this encounter Plan of Treatment Not on file documented as of this encounter Visit Diagnoses Not on filedocumented in this encounter Care Teams It Disaster Recovery Manager Relationship Specialty Start Date End Date Aditya Castro MD PCP - General Student in an Organized Health Care Education/Training Program 09/11/18 documented as of this encounter
--- OUTSIDE RECORDS SUMMARY | 2024-08-18 13:33 | XMS_ITS | Encounter Summary ---
Author Organization [facility] Address [address] [place] [address] Care Team Providers Care Help Desk Specialist Name Role Phone Aditya Castro MD Primary Care Provider [phone] Encounter Details Date Type Department Care Team (Late st Contact Info) Description 10/06/2023 External Device Data STL ABSTRACTION Provider, Abstract [...] on filedocumented in this encounter Care Teams Help Desk Specialist Relationship Specialty Start Date End Date Aditya Castro MD PCP - General Student in an Organized Health Care Education/Training Program 09/11/18 documented as of this encounter
--- OUTSIDE RECORDS SUMMARY | 2024-08-18 13:33 | XMS_ITS | Encounter Summary ---
Author Organization [facility] Address [address] [place] [address] Care Team Providers Care Mailroom Manager Name Role Phone Aditya Castro MD Primary Care Provider [phone] Encounter Details Date Type Department Care Team (Late st Contact Info) Description 09/13/2023 External Device Data STL ABSTRACTION Provider, Abstract [...] on filedocumented in this encounter Care Teams Mailroom Manager Relationship Specialty Start Date End Date Aditya Castro MD PCP - General Student in an Organized Health Care Education/Training Program 09/11/18 documented as of this encounter
--- OUTSIDE RECORDS SUMMARY | 2024-08-18 13:33 | XMS_ITS | Encounter Summary ---
Author Organization [facility]ERNANDO Kurtz [facility] Address [address] [place] [address] Care Team Providers Care Radio Installer Automobile Name Role Phone Aditya Castro MD Primary Care Provider [phone] Encounter Details Date Type Department Care Team (Late st Contact Info) Description 08/10/2022 Abstract [facility] Oncology and Hematology - [place] [address] [id number] Lucinda Sr Social History Tobacco Use Types Packs/Day Years [...] on filedocumented in this encounter Care Teams Radio Installer Automobile Relationship Specialty Start Date End Date Aditya Castro MD PCP - General Student in an Organized Health Care Education/Training Program 09/11/18 documented as of this encounter
--- OUTSIDE RECORDS SUMMARY | 2024-08-18 13:33 | XMS_ITS | Encounter Summary ---
Author Organization [facility] Address [address] [place] [address] Care Team Providers Care Bag Shop Worker Name Role Phone Aditya Castro MD Primary Care Provider [phone] Encounter Details Date Type Department Care Team (Late st Contact Info) Description 09/16/2023 External Device Data STL ABSTRACTION Provider, Abstract [...] on filedocumented in this encounter Care Teams Bag Shop Worker Relationship Specialty Start Date End Date Aditya Castro MD PCP - General Student in an Organized Health Care Education/Training Program 09/11/18 documented as of this encounter
--- OUTSIDE RECORDS SUMMARY | 2024-08-18 13:33 | XMS_ITS | Encounter Summary ---
Author Organization [facility] Address [address] [place] [address] Care Team Providers Care Furniture Finisher Helper Name Role Phone Aditya Castro MD Primary Care Provider [phone] Encounter Details Date Type Department Care Team (Late st Contact Info) Description 09/17/2023 External Device Data STL ABSTRACTION Provider, Abstract [...] on filedocumented in this encounter Care Teams Furniture Finisher Helper Relationship Specialty Start Date End Date Aditya Castro MD PCP - General Student in an Organized Health Care Education/Training Program 09/11/18 documented as of this encounter
--- OUTSIDE RECORDS SUMMARY | 2024-08-18 13:33 | XMS_ITS | Encounter Summary ---
Author Organization [facility] Address [address] [place] [address] Care Team Providers Care Belling Machine Operator Name Role Phone Aditya Castro MD Primary Care Provider [phone] Reason for Visit * Reason Comments Follow Up Encounter Details Date Type Department Care Team (Late st Contact Info) Description 02/10/2023 11:00 AM CDT Office Visit [facility] ([facility]3] Oncology and Hematology - [place] [address] [place] [address] [facility] [address] [place] [address] Fernando Schmid MD [address] [facility] [address] [place] [address] Chronic anemia (Primary Dx) Social History Tobacco Use Types [...] Sign Reading Time Taken Comments Blood Pressure 146/80 02/10/2023 11:25 AM CDT Pulse 78 02/10/2023 11:24 AM CDT Temperature 36 ??C (96.8 ??F) 02/10/2023 11:24 AM CDT Respiratory Rate 10 02/10/2023 11:24 AM CDT Oxygen Saturation 99% 02/10/2023 11:24 AM CDT Inhaled Oxygen Concentration - - Weight 119.3 kg (263 lb) 02/10/2023 11:24 AM CDT Height - - Body Mass Index 37.74 06/29/2022 6:00 PM RAIL CAR OPERATOR documented in this encounter Progress Notes * Fernando Schmid MD - 02/10/2023 12:09 PM CDT HEMATOLOGY / ONCOLOGY PROGRESS NOTE Patient Identification: Name: Juvenal Daigle Age: 52 y.o. Sex: male : 1970 DIAGNOSIS Hypercoagulable state with recurrent DVT Coronary artery disease End-stage renal disease Anemia of chronic kidney disease CURRENT TREATMENT Eliquis 2.5 mg twice a day TREATMENT HISTORY SUBJECTIVE Patient came to the office for follow-up visit. He denies any leg pain and swelling. Denies any chest pain and shortness of breath. No bleeding and bruising. No other new complaints. Review of system Constitutional: Patient did not mention fevers, sweats, fatigue, malaise, weight loss HEENT: Patient did not mention sinus congestion, hearing or vision problems Respiratory: Patient did not mention cough, dyspnea, wheeze Cardiovascular: Patient did not mention chest pain, exertional chest pressure/discomfort, nausea, syncope, shortness of breath GI: Patient did not mention constipation, diarrhea, dsyphagia, reflux symptoms, vomiting, melena : Patient did not mention dysuria, frequency, incontinence, urgency Integumentary system: no lymphadenopathy, sweats, flushing Musculoskeletal: Patient not mention: myalgia, arthralgia Neurological: Patient did not mention blurry or disturbed vision, numbness/weakness, dizziness Skin: No lumps, bumps or rashes. Objective: Vital signs in last 24 hours: As per nursing note Exam: General appearance: alert, cooperative, no distress, appears stated age Head: normocephalic, without obvious abnormality, atraumatic Eyes: conjunctivae/corneas clear, EOM's intact Ears: normal external ear canals AU Nose: Nares normal. Septum midline. Mucosa normal. No drainage or sinus tenderness Throat: Lips, mucosa, and tongue normal. Teeth and gums normal Neck: supple, symmetrical, trachea midline. Lungs: clear to auscultation bilaterally Heart: regular rate and rhythm, S1, S2 normal, no murmur, click, rub or gallop Abdomen: soft, non-tender. Bowel sounds normal. No masses, No organomegaly Extremities: extremities normal, atraumatic, no cyanosis or edema Skin: Skin color, texture, turgor normal. No rashes or lesions Lymph nodes: No lymphadenopathy Neuro: No obvious focal deficit PATH LABS Labs from February 10 showed WBC 5.6 hemoglobin 14.7 platelet 209,000 creatinine 5.1 @IMAGEIMP@ Assessment: Plan: Patient Active Problem List Diagnosis Date Noted NSTEMI (non-ST elevated myocardial infarction) 06/29/2022 A-fib 06/29/2022 CAD (coronary atherosclerotic disease) 06/29/2022 Hyperparathyroidism 06/29/2022 Hyperlipidemia HTN (hypertension) Diabetes mellitus BEN (obstructive sleep apnea) Gout Acute on chronic HFrEF (heart failure with reduced ejection fraction) 06/22/2022 Overview Note: Last Assessment & Plan: C/b cardiogenic shock requiring impella in the setting of cath and AHRF 2/2 pulmonary edema, now resolved. TTE demonstrating recovered EF 65% with grade I diastolic dysfunction. - metop as above - continue low dose losartan 12.5mg daily, ok per nephro. Tolerating well - volume management per PD Cardiogenic shock 06/22/2022 Overview Note: Last Assessment & Plan: Secondary to NSTEMI, s/p Impella since removed on 06/10. Resolved. ESRD (end stage renal disease) 06/22/2022 Overview Note: Last Assessment & Plan: - Renal consulted, s/p CRRT in the ICU now back on PD. Tolerated well and nephrology following - Trialysis catheter removed - Continue vitamins for renal bone mineral disease. Acute hypoxemic respiratory failure 06/09/2022 Overview Note: Last Assessment & Plan: Secondary to ACS and flash pulmonary edema, since resolved and extubated on 06/19. Patient passed barium swallow on 06/21. Dysphagia 02/17/2022 Gastritis 01/25/2022 Abnormal cardiovascular stress test 12/29/2020 Overview Note: Added automatically from request for surgery [id number] Right upper quadrant pain 09/24/2020 Pre-transplant evaluation for kidney transplant 03/24/2020 Overview Note: Images from the original note were not included. Juvenal Rodriguez Pilo 1970 Referring Leadership Development Consultant: Leandro Reyes Dialysis Info: Type: PD Time: 160 days (11/05/2019) Blood Type: A Body mass index is 37.8 kg/m??. ALERTS Retail Advisor: Vashti Lizama NP Past Medical History: Diagnosis Date Anemia Arthritis Arthropathy osteo. back and knees see Dr. Norton CAD (coronary artery disease) Community acquired pneumonia 2017 [facility] hospitalized with double pneumonia Congestive heart failure Coronary artery disease Diabetes mellitus type 1 teens dx when he was 13. Insulin since he was dx. Insulin pump currently with dexacom. Vashti Lizama NPis train operator. DM (diabetes mellitus) TYPE 1 DVT (deep venous thrombosis) 2017 [facility]. ESRD on peritoneal dialysis Gout History of blood transfusion 2017 during admission for CO HLD (hyperlipidemia) HTN (hypertension) Hypercholesteremia 5 years on med Hypertension 30's on medications. Kidney disease Myocardial infarction 2017 [facility]. Stent x1 placed. Neuropathy feet Obstructive sleep apnea He is not wearing because it causes congestion makes it harder to breath. Primary gout 2017 Past Surgical History: Procedure Laterality Date Appendectomy Cardiac Catherization CARDIAC STERNAL PRECAUTION total of 4 stents Cataract Removal Bilateral Cholecystectomy Cholecystectomy, Laparoscopic 25 yrs ago Femur Fracture Repair Hernia Repair HERNIA REPAIR, UMBILICAL 2019 mesh used IR PERITONEAL TUNNEL CATH PLACE KNEE CARTILAGE REPAIR Right PTCA Social History Socioeconomic History Marital status: Single Spouse name: Not on file Number of children: Not on file Years of education: Not on file Highest education level: Not on file Occupational History Not on file Social Needs Financial resource strain: Not on file Food insecurity Worry: Not on file Inability: Not on file Transportation needs Medical: Not on file Non-medical: Not on file Tobacco Use Smoking status: Never Smoker Smokeless tobacco: Never Used Substance and Sexual Activity Alcohol use: Not Currently Comment: 35 years ago Drug use: No Sexual activity: Not on file Lifestyle Physical activity Days per week: Not on file Minutes per session: Not on file Stress: Not on file Relationships Social connections Talks on phone: Not on file Gets together: Not on file Attends buddhism service: Not on file Active member of club or organization: Not on file Attends meetings of clubs or organizations: Not on file Relationship status: Not on file Intimate partner violence Fear of current or ex partner: Not on file Emotionally abused: Not on file Physically abused: Not on file Forced sexual activity: Not on file Other Topics Concern Not on file Social History Narrative Not on file Transplant Surgery Clinic Appt w/: Date: A/P: Nephrology Clinic Appt w/: Date: A/P: Other Consults: Pertinent Previous Committee Presentations: 07/02/2020: Committee Discussion Details: Pt brought to [facility] to discuss his cardiac workup. Team reviewed [...] stress. Stress ejection fraction estimated at 83%. LHC: 08/26/2019 NM exercise Stress: 04/16/2019 04/17/2017 CXR: 05/14/2020 FINDINGS/IMPRESSION: There is no pulmonary consolidation, pleural effusion, or pneumothorax. The heart size is normal. CT abd/pelvis non-contrast: 05/14/2020 FINDINGS: No prior [...] negative 01/01/2020 Colonoscopy: 03/08/2019 Panorex/Dental: 05/14/2020 FINDINGS: Dental restorations and a bridge are present. Several teeth are absent. There is no evidence of fracture of the mandible. The temporomandibular joints are intact bilaterally. No periapical lucency is seen to indicate abscess. IMPRESSION: No periapical abscess identified. SW: 07/14/2020 Clinical Social Work Impression: It is the impression of this social media specialist that Juvenal Daigle has several positive factors for Kidney transplant candidacy from a psychosocial perspective. Patient appears to have appropriate knowledge of illness. Patient has sufficient insurance coverage and stable financial situation for post t ransplant needs. No concerns regarding substance abuse, legal issues, or mental health needs. Patient has adequate support system and appropriate discharge plan. Patient has chickens. SW advised of safety concerns regarding immunosuppressants. Plan: structural steel worker to provide supportive services as needed. Patient appears to be a reasonable candidate for transplant from a psychosocial perspective. -Post transplant arrangement forms are needed prior to being listed. Psychiatric Consult Recommended: No Transplant Director Mobile: Radha Roper LCSW RD:05/14/2020 BMI= 40.0, Class III Obesity. Waist 53 . Pt is considered to be a Marginal candidate for a Kidney Transplant from a Nutrition standpoint. Goal weight is 243 lbs/30 lb wt loss needed/Achieve BMI < 35 to improve candidacy. Recommendations/Interventions/Pt Instructed to: Pt given Renal, Kidney meal plan, exercise encouraged, smaller more frequent eating encouraged, menu and snack ideas given along with RD contact. Items Still Pending: education Ketoacidosis due to type 1 diabetes mellitus 02/12/2020 Chronic embolism and thrombosis of unspecified deep veins of right lower extremity 10/30/2019 Dystrophia unguium 10/25/2018 Diabetic peripheral neuropathy 05/10/2018 Gastroesophageal reflux disease without esophagitis 04/24/2018 History of deep vein thrombosis 04/24/2018 Congestive heart failure 04/24/2018 Anemia of chronic renal failure, stage 4 (severe) 06/05/2017 History of coronary artery stent placement 05/23/2017 Proliferative diabetic retinopathy associated with type 2 diabetes mellitus 03/17/2017 Anemia in chronic kidney disease 05/30/2016 Hypertensive kidney disease with end-stage renal disease 05/30/2016 Hypersomnia 11/22/2013 Stage 5 chronic kidney disease 11/22/2013 Hypercoagulable state with recurrent DVT. Doppler studies done on October 26, 2022 showed no evidence of DVT in the left lower extremity. Clinically is feeling better. I will reduce Eliquis to 2.5 mg twice a day as patient is also on Plavix and there is a significant risk of bleeding. Doppler studies will be done on as- needed basis. Coronary artery disease status post stent placement in May 2022. He is on Plavix and aspirin has been discontinued by metallographic technician. End-stage renal disease on peritoneal dialysis. Anemia chronic kidney disease. Hemoglobin has significantly improved. Patient will let us know how much Procrit and iron is he getting at the dialysis center. Follow-up in 3 months with repeat labs. ? TOBACCO COUNSELING He is not a tobacco/nicotine user. 02/10/2023 Fernando Schmid MD documented in this encounter Plan of Treatment Not on file documented as of this encounter Visit Diagnoses Diagnosis Chronic anemia- Primary Anemia, unspecified documented in this encounter Care Teams Belling Machine Operator Relationship Specialty Start Date End Date Aditya Castro MD PCP - General Student in an Organized Health Care Education/Training Program 09/11/18 documented as of this encounter
--- OUTSIDE RECORDS SUMMARY | 2024-08-18 13:33 | XMS_ITS | Encounter Summary ---
Author Organization [facility] Address [address] [place] [address] Care Team Providers Care English As A Second Language Teacher Name Role Phone Aditya Castro MD Primary Care Provider [phone] Encounter Details Date Type Department Care Team (Late st Contact Info) Description 10/09/2023 External Device Data STL ABSTRACTION Provider, Abstract [...] on filedocumented in this encounter Care Teams English As A Second Language Teacher Relationship Specialty Start Date End Date Aditya Castro MD PCP - General Student in an Organized Health Care Education/Training Program 09/11/18 documented as of this encounter
--- OUTSIDE RECORDS SUMMARY | 2024-08-18 13:33 | XMS_ITS | Encounter Summary ---
Author Organization [facility] Address [address] [place] [address] Care Team Providers Care Clinical Exercise Physiologist Name Role Phone Aditya Castro MD Primary Care Provider [phone] Encounter Details Date Type Department Care Team (Late st Contact Info) Description 05/11/2023 External Device Data STL ABSTRACTION Provider, Abstract [...] filedocumented in this encounter Care Teams Clinical Exercise Physiologist Relationship Specialty Start Date End Date Aditya Castro MD PCP - General Student in an Organized Health Care Education/Training Program 09/11/18 documented as of this encounter
--- OUTSIDE RECORDS SUMMARY | 2024-08-18 13:33 | XMS_ITS | Encounter Summary ---
Author Organization [facility] [employer] [facility] Address [address] [place] [address] Care Team Providers Care Salt Operator Name Role Phone Aditya Castro MD Primary Care Provider [phone] Encounter Details Date Type Department Care Team (Late st Contact Info) Description 10/27/2022 Orders Only [facility] Oncology and Hematology - [place] [address] [id number] Lucinda Sr History of deep vein thrombosis Social History Tobacco Use Types Packs/Day Years [...] this encounter Visit Diagnoses Diagnosis History of deep vein thrombosis Personal history of venous thrombosis and embolism documented in this encounter Care Teams Salt Operator Relationship Specialty Start Date End Date Aditya Castro MD PCP - General Student in an Organized Health Care Education/Training Program 09/11/18 documented as of this encounter
--- OUTSIDE RECORDS SUMMARY | 2024-08-18 13:33 | XMS_ITS | Encounter Summary ---
Author Organization [facility] Address [address] [place] [address] Care Team Providers Care Veterinary Laboratory Technician Name Role Phone Aditya Catsro MD Primary Care Provider [phone] Encounter Details Date Type Department Care Team (Late st Contact Info) Description 02/29/2024 Orders Only [facility] Oncology and Hematology - [place] [address] [place] [address] oJsefina Rodríguez FNP [address] [facility] [address] [place] [address] Social History Tobacco Use Types Packs/Day Years [...] Name Priority Date/Time Associated Diagnosis Comments US ABDOMEN COMPLETE Routine 02/26/2024 11:34 AM CDT documented in this encounter Results * US ABDOMEN COMPLETE (02/26/2024 11:34 AM CDT) Anatomical Region Laterality Modality Abdomen Other Josefina WILSON US ORDERABLES documented in this encounter Visit Diagnoses Not on filedocumented in this encounter Care Teams Veterinary Laboratory Technician Relationship Specialty Start Date End Date Aditya Castro MD PCP - General Student in an Organized Health Care Education/Training Program 09/11/18 documented as of this encounter
--- OUTSIDE RECORDS SUMMARY | 2024-08-18 13:33 | XMS_ITS | Encounter Summary ---
Author Organization [facility] [employer] [facility] Address [address] [place] [address] Care Team Providers Care Central Station Operator Name Role Phone Aditya Castro MD Primary Care Provider [phone] Reason for Referral * Radiology Services (Routine) - Closed Specialty Diagnoses / Procedures Referred By Contac t Referred To Contact Diagnoses History of deep vein thrombosis Procedures US VENOUS DOPPLER LEG BILATERAL Fernando Schmid MD [address] [place] [address] [place] [address] Referral ID Status Reason Start Date Expiration Date V isits Requested Visits Authorized [id number] Closed [facility] CTS 09/21/2022 10/22/2023 1 1 ECTOR QUALITY ASSURANCE Reason for Visit * Reason Comments Establish Care Encounter Details Date Type Department Care Team (Late st Contact Info) Description 09/21/2022 11:45 AM INSPECTOR QUALITY ASSURANCE Office Visit [facility] Oncology and Hematology [facility] [address] [facility] [address] [place] [address] Fernando Schmid MD [address] [place] [address] History of deep vein thrombosis (Primary Dx) Social History Tobacco Use Types Packs/Day Years Used Date Smoking Tobacco: Never Smokeless Tobacco: Never Tobacco Cessation:Counseling Given: Not Answered Alcohol Use [...] Coronavirus/COVID-19? No / Unsure 09/21/2022 11:32 AM INSPECTOR QUALITY ASSURANCE documented as of this encounter Last Filed Vital Signs Vital Sign Reading Time Taken Comments Blood Pressure 131/50 09/21/2022 11:43 AM INSPECTOR QUALITY ASSURANCE Pulse 70 09/21/2022 11:43 AM INSPECTOR QUALITY ASSURANCE Temperature 36.7 ??C (98 ??F) 09/21/2022 11:43 AM INSPECTOR QUALITY ASSURANCE Respiratory Rate 16 09/21/2022 11:43 AM INSPECTOR QUALITY ASSURANCE Oxygen Saturation 95% 09/21/2022 11:43 AM INSPECTOR QUALITY ASSURANCE Inhaled Oxygen Concentration - - Weight 124 kg (273 lb 4.8 oz) 09/21/2022 11:43 A M INSPECTOR QUALITY ASSURANCE Height - - Body Mass Index 39.21 06/29/2022 6:00 PM INSPECTOR QUALITY ASSURANCE documented in this encounter Progress Notes * Fernando Schmid MD - 09/21/2022 3:09 PM CST Hematology-oncology consult Note Requesting Physician Aditya Castro MD Primary Care Physician Aditya Castro MD Problem list Patient Active Problem List Diagnosis Code Anemia of chronic renal failure, stage 4 (severe) N18.4, D63.1 Chronic embolism and thrombosis of unspecified deep veins of right lower extremity I82.501 Hyperlipidemia E78.5 HTN (hypertension) I10 Diabetes mellitus E11.9 BEN (obstructive sleep apnea) G47.33 Gout M10.9 NSTEMI (non-ST elevated myocardial infarction) I21.4 A-fib I48.91 CAD (coronary atherosclerotic disease) I25.10 Hyperparathyroidism E21.3 Acute hypoxemic respiratory failure J96.01 Abnormal cardiovascular stress test R94.39 Acute on chronic HFrEF (heart failure with reduced ejection fraction) I50.23 Anemia in chronic kidney disease N18.9, D63.1 Cardiogenic shock R57.0 Diabetic peripheral neuropathy E11.42 ESRD (end stage renal disease) N18.6 Dysphagia R13.10 Dystrophia unguium L60.3 Gastroesophageal reflux disease without esophagitis K21.9 Gastritis K29.70 Hypersomnia G47.10 History of deep vein thrombosis Z86.718 History of coronary artery stent placement Z95.5 Hypertensive kidney disease with end-stage renal disease I12.0, N18.6 Pre-transplant evaluation for kidney transplant Z01.818 Proliferative diabetic retinopathy associated with type 2 diabetes mellitus E11.3599 Right upper quadrant pain R10.11 Stage 5 chronic kidney disease N18.5 Ketoacidosis due to type 1 diabetes mellitus E10.10 Congestive heart failure I50.9 Previous TREATMENT ? Measurable Disease ? Reason for Visit Juvenal Daigle is a 52 y.o. male who was referred for consultation for hypercoagulable state. History of present illness This is a 52-year-old obese male with history of chronic kidney stage V disease on peritoneal dialysis for last couple of years duration along with history of coronary artery disease statuspost stent placement initially in March 2017 and November 2018 and more recently in May 2022. He also has a history of left lower extremity DVT. Patient had Doppler study done in October 2019 that showed no evidence of DVT. After the recent stent placement in May he went to the cardiac rehab and was not very active. He developed some left lower extremity pain and swelling. He was already on Plavix and aspirin. Doppler studies were performed that showed occlusive DVT involving throughout theleft lower extremity. He was initially started on heparin and then was switched to Eliquis at the time of discharge. He is feeling better without any significant leg pain and swelling. He denies any bleeding and bruising. No other new complaints. Past Medical History Past Medical History: Diagnosis Date Amplified musculoskeletal pain Diabetes mellitus Heart attack 04/14/2017 HTN (hypertension) Hyperlipidemia Thromboembolism Surgical History Past Surgical History: Procedure Laterality Date HX ANGIOPLASTY N/A 04/17/2017 Medications Current Outpatient Medications Medication Sig Dispense Refill icosapent ethyL (Vascepa) 1 gram Capsule Take 2 Grams by mouth 2 times daily with meals. apixaban (Eliquis) 5 mg tablet Eliquis 5 mg tablet 60 Tablet 3 famotidine (PEPCID) 40 mg tablet losartan (COZAAR) 25 mg tablet 100 mg. omeprazole (PriLOSEC) 20 mg Capsule, Delayed Release(E.C.) Take 20 mg by mouth daily. [DISCONTINUED] apixaban (Eliquis) 5 mg tablet Eliquis 5 mg tablet atorvastatin (LIPITOR) 80 mg tablet Take 1 Tablet (80 mg) by mouth daily. 30 Tablet 0 calcium acetate (CALPHRON) 667 mg Tablet tablet Take 1 Tablet (667 mg) by mouth 3 times daily before meals. 90 Tablet 0 gentamicin (GARAMYCIN) 0.1 % Ointment Apply to affected area daily. metoprolol tartrate (LOPRESSOR) 25 mg tablet Take 0.5 Tablets (12.5 mg) by mouth 2 times daily. 30 Tablet 0 peg 081-gghksmhlwhmo-fayidyiu 1-0.2-0.2 % solution Administer 1 Drop in both eyes 4 times daily. Insulin Dick[place], Disposable, (TRUEPLUS PEN NEEDLE) 31 gauge x 5/16 Needle TRUEplus Pen Needle 31 gauge x 5/16 blood sugar diagnostic (TRUE METRIX GLUCOSE TEST STRIP) Strip True Metrix Glucose Test Strip lancets (ONETOUCH DELICA LANCETS) 30 gauge OneTouch Delica Lancets 30 gauge calcitRIOL (ROCALTROL) 0.25 mcg capsule Take 0.25 mcg by mouth daily. cetirizine (ZyrTEC) 10 mg tablet Take 10 mg by mouth daily. colchicine (COLCRYS) 0.6 mg tablet Take 0.6 mg by mouth daily. ezetimibe (ZETIA) 10 mg tablet Take 10 mg by mouth daily. ergocalciferol (VITAMIN D2) 50,000 unit capsule Take 50,000 Units by mouth. TRUE METRIX GLUCOSE TEST STRIP Strip TRUE METRIX GLUCOSE METER RANEXA 500 mg Extended Release 12 hour tablet BD ULTRA-FINE SHORT PEN NEEDLE 31 gauge x 5/16 Needle U ONE PEN NEEDLE TO INJ INSULIN SC QID 1 isosorbide mononitrate (IMDUR) 30 mg Extended Release 24 hour tablet Take 30 mg by mouth daily vertical lathe operator. clopidogrel (PLAVIX) 75 mg Tablet Take 75 mg by mouth daily . furosemide (LASIX) 40 mg tablet Take 120 mg by mouth 2 times daily. nitroglycerin (NITROSTAT) 0.4 mg Tablet, Sublingual Place 0.4 mg under tongue every 5 minutes as needed for Chest Pain. No current facility-administered medications for this visit. Allergies Allergies Allergen Reactions Allopurinol Shortness of Breath/Wheezing and Other (See Comments) Shuts my kidneys down per patient. Chlorhexidine Other (See Comments) Skin peels all over and becomes tender Iodinated Contrast Media Rash Ticagrelor Rash Immunizations: There is no immunization history on file for this patient. Family History No family history on file. Social History Social History Tobacco Use Smoking status: Never Smokeless tobacco: Never Substance Use Topics Alcohol use: No Review of Systems Constitutional: Patient did not mention fever; no night sweats; no anorexia; no weight loss; no fatique NEENT: Patient did not mention headache; no change in vision; no change in hearing; no sore throat;no dysphagia Respiratory: Patient did not mention shortness of breath; no pleuritic chest pain; no cough; no hemoptysis Cardiac: Patient did not mention cardiac-like chest pain; no palpitations; no orthopnea; no PND; noDOE GI: Patient did not mention abdominal pain; no nausea; no vomiting; no diarrhea; no hematochezia; no melena : Patient did not mention dysuria; no frequency; no hesitancy; no hematuria VOLUNTEER FIRE FIGHTER: Musculosketetal: Patient did not mention bone pain; no arthralgia; no joint swelling; no myalgia; Skin: Patient did not mention pruritis; no rash; no petechiae; no ecchymoses Endocrine: Patient did not mention polydipsia; no polyuria; no unusual weight gain Neuro: Patient did not mention headache; no change in vision; no sensory changes; no muscle weakness; no confusion; no seizures Psych: Patient did not mention anxiety; no depression; Physical Exam Vitals: As per nursing note Constitutional: Well developed, well nourished, no acute distress, non-toxic appearance Teeth and gum. No signs of infection or swelling. Eyes: PERRL, conjunctiva normal HEENT: Atraumatic, external ears normal, nose normal, oropharynx moist, no pharyngeal exudates. no sinus tenderness Neck- normal range of motion, no tenderness, supple Respiratory: No respiratory distress, normal breath sounds, no rales, no wheezing Cardiovascular: Normal rate, normal rhythm, no murmurs, no gallops, no rubs GI: Soft, nondistended, normal bowel sounds, nontender, no splenomegaly, no hepatomegaly, no mass, no rebound, no guarding : No costovertebral angle tenderness Musculoskeletal: No edema, no tenderness, no deformities. Back- no tenderness Integument: Well hydrated, no rash, Digits and nails inspection normal Lymphatic: No lymphadenopathy noted Neurologic: Alert & oriented x 3, CN 2-12 normal, normal motor function, normal sensory function, no focal deficits noted Psychiatric: Speech and behavior appropriate ? BP 131/50 (BP Location: Left arm, Patient Position (BP): Sitting) Pulse 70 Temp 98 ??F (36.7 ??C) (Temporal) Resp 16 Wt 124 kg (273 lb 4.8 oz) SpO2 95% BMI 39.21 kg/m?? labs No results found for this or any previous visit (from the past 24 hour(s)). Pathology ? Imaging & Other Studies Performance Status? Assessment / Plan: ? Hypercoagulable state with recurrent DVT. Patient is a 52-year-old male with multiple comorbiditiesincluding end-stage renal disease on peritoneal dialysis for last 2 years duration. He also has history of coronary artery disease status post stent placement initially in March 2017 and then November 2018. More recently had a stent placement in May 2022 and then went to the cardiac rehab. He wasnot very active at the cardiac rehab and developed some leg pain and swelling involving the left lower extremity. Doppler study showed DVT throughout the left lower extremity. He was already on aspirin and Plavix at that time. He was started on Eliquis. He is feeling much better with improvement inthe left leg pain and swelling. At this point we will order the Doppler studies in 4 weeks. Patientwill continue Eliquis for long-term duration due to recurrent DVT. Video visit with me after the Doppler studies and 4 weeks. Coronary artery disease status post stent placement in May 2022. He is on Plavix and aspirin. He will follow-up with a basket operator. End-stage renal disease. Patient is on peritoneal dialysis. Anemia secondary to chronic kidney disease. We will check CBC and CMP today. Patient gets Procrit injection at the dialysis center on every 3-month basis as needed. TOBACCO COUNSELING He is not a tobacco user. Fernando Schmid MD ,09/21/2022 3:09 PM ? Total time spent 60 minutes, two third of the total time spent counseling patient [id number]. CC:?Aditya Castro MD ECTOR QUALITY ASSURANCE documented in this encounter Plan of Treatment Scheduled Orders Name Type Priority Associated Diagnoses Orde r Schedule BASIC METABOLIC PANEL Lab Stat History of deep vein thrombosis Expected: 09/21/2022, Expires: 09/21/2023 US VENOUS DOPPLER LEG BILATERAL Imaging Routine History of deep vein thrombosis Expected: 10/19/2022, Expires: 09/21/2023 documented as of this encounter Visit Diagnoses Diagnosis History of deep vein thrombosis- Primary Personal history of venous thrombosis and embolism documented in this encounter Care Teams Central Station Operator Relationship Specialty Start Date End Date Aditya Castro MD PCP - General Student in an Organized Health Care Education/Training Program 09/11/18 documented as of this encounter
--- OUTSIDE RECORDS SUMMARY | 2024-08-18 13:33 | XMS_ITS | Encounter Summary ---
Author Organization [facility] Address [address] [place] [address] Care Team Providers Care Assistant Site Manager Name Role Phone Aditya Castro MD Primary Care Provider [phone] Encounter Details Date Type Department Care Team (Late st Contact Info) Description 12/26/2023 External Device Data STL ABSTRACTION Provider, Abstract [...] filedocumented in this encounter Care Teams Assistant Site Manager Relationship Specialty Start Date End Date Aditya Castro MD PCP - General Student in an Organized Health Care Education/Training Program 09/11/18 documented as of this encounter
--- OUTSIDE RECORDS SUMMARY | 2024-08-18 13:33 | XMS_ITS | Encounter Summary ---
Author Organization [facility] Address [address] [place] [address] Care Team Providers Care Basic Acoustic Analyst Name Role Phone Aditya Castro MD Primary Care Provider [phone] Encounter Details Date Type Department Care Team (Late st Contact Info) Description 08/02/2023 External Device Data STL ABSTRACTION Provider, Abstract [...] on filedocumented in this encounter Care Teams Basic Acoustic Analyst Relationship Specialty Start Date End Date Aditya Castro MD PCP - General Student in an Organized Health Care Education/Training Program 09/11/18 documented as of this encounter
--- OUTSIDE RECORDS SUMMARY | 2024-08-18 13:33 | XMS_ITS | Encounter Summary ---
Author Organization [facility] Address [address] [place] [address] Care Team Providers Care Hydrometeorological Technician Name Role Phone Aditya Castro MD Primary Care Provider [phone] Encounter Details Date Type Department Care Team (Late st Contact Info) Description 09/14/2023 External Device Data STL ABSTRACTION Provider, Abstract [...] on filedocumented in this encounter Care Teams Hydrometeorological Technician Relationship Specialty Start Date End Date Aditya Castro MD PCP - General Student in an Organized Health Care Education/Training Program 09/11/18 documented as of this encounter
--- OUTSIDE RECORDS SUMMARY | 2024-08-18 13:33 | XMS_ITS | Encounter Summary ---
Author Organization [facility] Address [address] [place] [address] Care Team Providers Care Produce Department Manager Name Role Phone Aditya Castro MD Primary Care Provider [phone] Encounter Details Date Type Department Care Team (Late st Contact Info) Description 08/01/2023 External Device Data STL ABSTRACTION Provider, Abstract [...] on filedocumented in this encounter Care Teams Produce Department Manager Relationship Specialty Start Date End Date Aditya Castro MD PCP - General Student in an Organized Health Care Education/Training Program 09/11/18 documented as of this encounter
--- OUTSIDE RECORDS SUMMARY | 2024-08-18 13:33 | XMS_ITS | Clinical Summary ---
Author Organization [facility] Address [address] [place] [address] Care Team Providers Care Training Engineer Name Role Phone Aditya Castro MD Primary Care Provider [phone] Allergies Active Allergy Reactions Criticality Noted Date Comments Allopurinol Shortness of Breath/Wheezing,Othe r (See Comments) High 07/31/2019 Shuts my kidneys down per patient. 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 Active clopidogrel (PLAVIX) 75 mg Tablet Take 75 mg by mouth daily . Active furosemide (LASIX) 40 mg tablet Take 120 mg by mouth 2 times daily. Active nitroglycerin (NITROSTAT) 0.4 mg Tablet, Sublingual Place 0.4 mg under tongue every 5 minutes as needed for Chest Pain. Active BD ULTRA-FINE SHORT PEN NEEDLE 31 gauge x 5/16 Needle U ONE PEN NEEDLE TO INJ INSULIN SC QID 1 01/30/2018 Active RANEXA 500 mg Extended Release 12 hour tablet 06/12/2018 Active TRUE METRIX GLUCOSE TEST STRIP Strip 07/11/2018 Active TRUE METRIX GLUCOSE METER 07/11/2018 Active calcitRIOL (ROCALTROL) 0.25 mcg capsule Take 0.25 mcg by mouth daily. Active cetirizine (ZyrTEC) 10 mg tablet Take 10 mg by mouth daily. Active colchicine (COLCRYS) 0.6 mg tablet Take 0.6 mg by mouth daily. Active ezetimibe (ZETIA) 10 mg tablet Take 10 mg by mouth daily. Active ergocalciferol (VITAMIN D2) 50,000 unit capsule Take 50,000 Units by mouth. Active Insulin [place], Disposable, (TRUEPLUS PEN NEEDLE) 31 gauge x 5/16 Needle TRUEplus Pen Needle 31 gauge x 5/16 Active blood sugar diagnostic (TRUE METRIX GLUCOSE TEST STRIP) Strip True Metrix Glucose Test Strip Active lancets (ONETOUCH DELICA LANCETS) 30 gauge OneTouch Delica Lancets 30 gauge Active atorvastatin (LIPITOR) 80 mg tablet Take 1 Tablet (80 mg) by mouth daily. 30 Tablet 07/08/2022 Active calcium acetate (CALPHRON) 667 mg Tablet tablet Take 1 Tablet (667 mg) by mouth 3 times daily before meals. 90 Tablet 07/07/2022 Active gentamicin (GARAMYCIN) 0.1 % Ointment Apply to affected area daily. 07/08/2022 Active metoprolol tartrate (LOPRESSOR) 25 mg tablet Take 0.5 Tablets (12.5 mg) by mouth 2 times daily. 30 Tablet 07/07/2022 Active peg 747-derdzihagtcr-uyl cerin 1-0.2-0.2 % solution Administer 1 Drop in both eyes 4 times daily. 07/07/2022 Active famotidine (PEPCID) 40 mg tablet 09/17/2022 Active losartan (COZAAR) 25 mg tablet 100 mg. 09/14/2022 Active omeprazole (PriLOSEC) 20 mg Capsule, Delayed Release(E.C.) Take 20 mg by mouth daily. Active icosapent ethyL (Vascepa) 1 gram Capsule Take 2 Grams by mouth 2 times daily with meals. Active Eliquis 2.5 mg tablet TAKE 1 TABLET(2.5 MG) BY MOUTH TWICE DAILY 60 Tablet 5 07/17/2023 Active Active Problems Problem Noted Date Diagnosed Date NSTEMI (non-ST elevated myocardial infarction) 1 08/29/2021 A-fib 06/29/2022 CAD (coronary atherosclerotic disease) 2 Hyperparathyroidism 06/29/2022 Acute on chronic HFrEF (hear t failure with reduced ejection fraction) 06/22/2022 Overview (06/29/2022): Last Assessment & Plan: C/b cardiogenic shock requiring impella in the setting of cath and AHRF 2/2 pulmonary edema, now resolved. TTE demonstrating recovered EF 65% with grade I diastolic dysfunction. - metop as above - continue low dose losartan 12.5mg daily, ok per nephro. Tolerating well - volume management per PD Cardiogenic shock 06/22/2022 Overview (06/29/2022): Last Assessment & Plan: Secondary to NSTEMI, s/p Impella since removed on 06/10. Resolved. ESRD (end stage renal disease) 06/22/2022 Overview (06/29/2022): Last Assessment & Plan: - Renal consulted, s/p CRRT in the ICU now back on PD. Tolerated well and nephrology following - Trialysis catheter removed - Continue vitamins for renal bone mineral disease. Acute hypoxemic respiratory failure 06/09/2022 Overview (06/29/2022): Last Assessment & Plan: Secondary to ACS and flash pulmonary edema, since resolved and extubated on 06/19. Patient passed barium swallow on 06/21. Dysphagia 02/17/2022 Gastritis 01/25/2022 Abnormal cardiovascular stress test 12/29/2020 Overview (06/29/2022): Added automatically from request for surgery [id number] Right upper quadrant pain 09/24/2020 Pre-transplant evaluation for kidney transplant 03/24/2020 Overview (06/29/2022): Images from the original note were not included. Juvenal Daigle 1970 Referring Pick Up: Leandro Reyes Dialysis Info: Type: PD Time: 160 days (11/05/2019) Blood Type: A Body mass index is 37.8 kg/m??. ALERTS Content Curator: Vashti Lizama NP Past Medical History: Diagnosis [...] currently with dexacom. Vashti Lizama NP is sugar plantation manager. ? ? DM (diabetes mellitus) TYPE 1 ? ? DVT (deep venous thrombosis) 2017 [facility]. ? ? ESRD on peritoneal dialysis ? ? Gout ? ? History of blood transfusion 2017 during admission for OR ? ? HLD (hyperlipidemia) ? ? HTN [...] file Gets together: Not on file Attends mosque service: Not on file Active member of [...] 07/02/2020: Committee Discussion Details: Pt brought to [facility] to discuss his cardiac workup. Team [...] It is the impression of this social contact worker that Juvenal Daigle has several positive factors [...] of safety concerns regarding immunosuppressants. ?? Plan: computer recycling worker to provide supportive services as needed. Patient appears to be a reasonable candidate for transplant from a psychosocial perspective. ?? -Post transplant arrangement forms are needed prior to being listed. Psychiatric Consult Recommended: No ?? Transplant Log Raft Worker: Radha Roper LCSW ?? RD:05/14/2020 BMI= 40.0, [...] contact. ?4:02 PM Items Still Pending: education Ketoacidosis due to type 1 diabetes mellitus Chronic embolism and thrombo sis of unspecified deep veins of right lower extremity 10/30/2019 Dystrophia unguium 10/25/2018 Diabetic peripheral neuropathy 05/10/2018 Gastroesophageal reflux disease without esophagi tis 04/24/2018 History of deep vein thrombosis 04/24/2018 Congestive heart failure 04/24/2018 Anemia of chronic renal failure, stage 4 (severe ) 06/05/2017 History of coronary artery stent placement 05/23 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 03/17/2017 Anemia in chronic kidney disease 05/30/2016 Hypertensive kidney disease with end-stage renal disease 05/30/2016 Hypersomnia 11/22/2013 Stage 5 chronic kidney disease 11/22/2013 Hyperlipidemia HTN (hypertension) Diabetes mellitus BEN (obstructive sleep apnea) Gout Family History Relation Name Status Comments Brother 1 Alive Brother 2 Alive Father Mother Alive Social History Tobacco Use Types [...] (263 lb) 02/10/2023 11:24 AM CDT Height 177.8 cm (5' 10 ) 06/29/2022 6:00 PM SYSTEM DEVELOPMENT MANAGER Body Mass Index 37.74 06/29/2022 6:00 PM SYSTEM DEVELOPMENT MANAGER Plan of Treatment Health Maintenance Due Date Last Done Comments DIABETES ANNUAL FOOT EXAM 1986 DIABETES MICROALBUMIN ANNUAL SCREEN 1986 LDL CHOLESTEROL ANNUAL 1986 HEPATITIS B VACCINES (1 of 3 - 19+ 3-dose series) 1987 FIT-DNA Q 3 years 2013 FIT/FOBT Q 1 year 2013 Flex Sig/CT Colonography Q 5 years 2013 ZOSTER VACCINE (1 of 2) 2018 PNEUMOCOCCAL VACCINE 0-64 YE ARS (2 of 2 - PCV) 02/11/2021 02/12/2020, 08/26/2019 DIABETES HBA1C Q 6 MONTHS 02/20/20232022, 06/05/2022, 06/04/2022, Additional history exists DIABETES ANNUAL RETINAL EXAM 11/18/2023, 09/07/2022, 09/07/2022, Additional history exists INFLUENZA VACCINE (#1) 2024 2, 06/04/2022, 06/08/2021, Additional history exists COLORECTAL SCREENING 03/08/2029 03/08/2019 Colorectal Cancer Screening 03/08/2029 DTAP/TDAP/TD VACCINES (2 - T d or Tdap) 10/21/2029 10/22/2019 Advance Directives For more information, please contact: [phone] * Full Code (Latest Code Status on File) Date Activated Date Inactivated Comments 06/29/2022 2:49 PM 07/08/2022 4:30 PM Care Teams Training Engineer Relationship Specialty Start Date End Date Aditya Castro MD PCP - General Student in an Organized Health Care Education/Training Program 09/11/18
--- OUTSIDE RECORDS SUMMARY | 2024-08-18 13:33 | XMS_ITS | Encounter Summary ---
Author Organization [facility] [address] [facility] Address [address] [place] [address] Care Team Providers Care Weed Inspector Name Role Phone Aditya Castro MD Primary Care Provider [phone] Reason for Visit * Reason Onset Date Comments Medication Refill 09/23/2022 Encounter Details Date Type Department Care Team (Late st Contact Info) Description 09/23/2022 Refill [facility] Oncology and Hematology - [place] [address] [facility] [address] [place] [address] [place] [address] [place] [address] [address] [place] [address] Social History Tobacco Use Types [...] Coronavirus/COVID-19? No / Unsure 09/21/2022 11:32 AM PRINTING ROLLER POLISHER documented as of this encounter Plan of Treatment Not on file documented as of this encounter Visit Diagnoses Not on filedocumented in this encounter Care Teams Weed Inspector Relationship Specialty Start Date End Date Aditya Castro MD PCP - General Student in an Organized Health Care Education/Training Program 09/11/18 documented as of this encounter
--- OUTSIDE RECORDS SUMMARY | 2024-08-18 13:33 | XMS_ITS | Encounter Summary ---
Author Organization [facility] Address [address] [place] [address] Care Team Providers Care Construction Helper Name Role Phone Aditya Castro MD Primary Care Provider [phone] Encounter Details Date Type Department Care Team (Late st Contact Info) Description 07/18/2023 External Device Data STL ABSTRACTION Provider, Abstract [...] on filedocumented in this encounter Care Teams Construction Helper Relationship Specialty Start Date End Date Aditya Castro MD PCP - General Student in an Organized Health Care Education/Training Program 09/11/18 documented as of this encounter
--- OUTSIDE RECORDS SUMMARY | 2024-08-18 13:33 | XMS_ITS | Encounter Summary ---
Author Organization [facility] Address [address] [place] [address] Care Team Providers Care Program/Music Director Name Role Phone Aditya Castro MD Primary Care Provider [phone] Encounter Details Date Type Department Care Team (Late st Contact Info) Description 09/15/2023 External Device Data STL ABSTRACTION Provider, Abstract [...] on filedocumented in this encounter Care Teams Program/Music Director Relationship Specialty Start Date End Date Aditya Castro MD PCP - General Student in an Organized Health Care Education/Training Program 09/11/18 documented as of this encounter
--- OUTSIDE RECORDS SUMMARY | 2024-08-18 13:33 | XMS_ITS | Encounter Summary ---
Author Organization [facility] Address [address] [place] [address] Care Team Providers Care Sight Mounter Name Role Phone Aditya Castro MD Primary Care Provider [phone] Encounter Details Date Type Department Care Team (Late st Contact Info) Description 11/17/2023 External Device Data STL ABSTRACTION Provider, Abstract [...] on filedocumented in this encounter Care Teams Sight Mounter Relationship Specialty Start Date End Date Aditya Castro MD PCP - General Student in an Organized Health Care Education/Training Program 09/11/18 documented as of this encounter
--- OUTSIDE RECORDS SUMMARY | 2024-08-18 13:33 | XMS_ITS | Encounter Summary ---
Author Organization [facility] Address [address] [place] [address] Care Team Providers Care Reservationist Name Role Phone Aditya Castro MD Primary Care Provider [phone] Encounter Details Date Type Department Care Team (Late st Contact Info) Description 12/05/2023 External Device Data STL ABSTRACTION Provider, Abstract [...] on filedocumented in this encounter Care Teams Reservationist Relationship Specialty Start Date End Date Aditya Castro MD PCP - General Student in an Organized Health Care Education/Training Program 09/11/18 documented as of this encounter
--- OUTSIDE RECORDS SUMMARY | 2024-08-18 13:33 | XMS_ITS | Encounter Summary ---
Author Organization [facility] Address [address] [place] [address] Care Team Providers Care Tax Advisor Name Role Phone Adtiya Castro MD Primary Care Provider [phone] Encounter Details Date Type Department Care Team (Late st Contact Info) Description 02/13/2023 Orders Only [facility] Oncology and Hematology - [place] [address] [facility] 200 [place] [address] Fernando Schmid MD [address] [facility] [address] [place] [address] Social History Tobacco Use Types [...] Procedure Name Priority Date/Time Associated Diagnosis Comments CBC WITHOUT DIFFERENTIAL Routine 023 10:54 AM CDT BASIC METABOLIC PANEL Routine 02/10/2023 10:53 AM CDT documented in this encounter Results * CBC WITHOUT DIFFERENTIAL (02/10/2023 10:54 AM CDT) Blood Fernando Schmid MD HEMATOLOGY ORDERABLE S * BASIC METABOLIC PANEL (02/10/2023 10:53 AM CDT) Blood Fernando Schmid MD CHEMISTRY ORDERABLES documented in this encounter Visit Diagnoses Not on filedocumented in this encounter Care Teams Tax Advisor Relationship Specialty Start Date End Date Aditya Castro MD PCP - General Student in an Organized Health Care Education/Training Program 09/11/18 documented as of this encounter
--- OUTSIDE RECORDS SUMMARY | 2024-08-18 13:33 | XMS_ITS | Encounter Summary ---
Author Organization [facility] Address [address] [place] [address] Care Team Providers Care Features Reporter Name Role Phone Aditya Castro MD Primary Care Provider [phone] Reason for Visit * Reason Comments Follow Up DVT Encounter Details Date Type Department Care Team (Late st Contact Info) Description 11/04/2022 10:45 AM CDT Video Visit [facility] Oncology and Hematology - [place] [address] [place] [address] Karri Ortiz MD [address] [place] [address] History of deep vein thrombosis [...] as of this encounter Progress Notes * Karri Ortiz MD - 11/04/2022 11:01 AM CDT Hematology-oncology consult Note Requesting Physician Aditya Castro [...] significant leg pain and swelling. He denies anybleeding and bruising. No other new complaints. Repeat ultrasound done October 26, 2022 showed clearing of the DVT with no evidence of a deep vein thrombosis patient is doing well undergoing cardiac rehab Past Medical History Past Medical History: Diagnosis Date Amplified musculoskeletal pain Diabetes mellitus Heart attack 04/14/2017 HTN (hypertension) Hyperlipidemia Thromboembolism Surgical History Past Surgical History: Procedure Laterality Date HX ANGIOPLASTY N/A 04/17/2017 Medications Current Outpatient Medications Medication Sig Dispense Refill apixaban (Eliquis) 5 mg tablet Eliquis 5 mg tablet. Take 1 tablet by mouth twice a day. 60 Tablet 3 famotidine (PEPCID) 40 mg tablet losartan (COZAAR) 25 mg tablet 100 mg. omeprazole (PriLOSEC) 20 mg Capsule, Delayed Release(E.C.) Take 20 mg by mouth daily. icosapent ethyL (Vascepa) 1 gram Capsule Take 2 Grams by mouth 2 times daily with meals. atorvastatin (LIPITOR) 80 mg tablet Take 1 [...] 2 times daily. 30 Tablet 0 peg 849-[id number]-uazuaszh 1-0.2-0.2 % solution Administer 1 Drop in both eyes 4 times daily. Insulin [place], Disposable, (TRUEPLUS PEN NEEDLE) 31 gauge x [...] tablet Take 30 mg by mouth daily marketing technology coordinator. clopidogrel (PLAVIX) 75 mg Tablet Take 75 [...] dysuria; no frequency; no hesitancy; no hematuria TOW MOTOR MECHANIC: Musculosketetal: Patient did not mention bone pain; [...] not mention anxiety; no depression; Physical Exam this was a video visit labs WBCs 5.5 hemoglobin 12.4 platelet count 96,000 electrolytes unremarkable patient is on Peritoneal dialysis ? Imaging & Other Studies Ultrasound as mentioned above shows narrowing of the vein thrombosis Performance Status? Good Assessment / Plan: ? Hypercoagulable state with [...] then went to the cardiac rehab. He was not very active at the cardiac rehab and [...] for long-term duration due to recurrent DVT. Coronary artery disease status post stent placement in May 2022. He is on Plavix and aspirin. He will follow-up with a senior electronics technician. End-stage renal disease. Patient is on peritoneal dialysis. Anemia secondary to chronic kidney disease. We will check CBC and CMP today. Patient gets Procrit injection at the dialysis center on every 3-month basis as needed. We will see him back in the office in 3 months TOBACCO COUNSELING He is not a tobacco user. Karri Ortiz MD ,11/04/2022 11:02 AM ? CC:?Aditya Castro MD documented in this encounter Plan of Treatment Not on file documented as of this encounter Visit Diagnoses Diagnosis History of deep vein thrombosis- Primary Personal history of venous thrombosis and embolism documented in this encounter Care Teams Features Reporter Relationship Specialty Start Date End Date Aditya Castro MD PCP - General Student in an Organized Health Care Education/Training Program 09/11/18 documented as of this encounter
--- OUTSIDE RECORDS SUMMARY | 2024-08-18 13:33 | XMS_ITS | Encounter Summary ---
Author Organization [facility] Address [address] [place] [address] Care Team Providers Care Triple Valve Tester Name Role Phone Aditya Castro MD Primary Care Provider [phone] Encounter Details Date Type Department Care Team (Late st Contact Info) Description 09/22/2022 Orders Only [facility] Oncology and Hematology - [place] [address] [place] [id number] Lucinda Sr History of deep vein thrombosis [...] Coronavirus/COVID-19? No / Unsure 09/21/2022 11:32 AM FRENCH CORD BINDER documented as of this encounter Plan of Treatment Not on file documented as of this encounter Visit Diagnoses Diagnosis History of deep vein thrombosis Personal history of venous thrombosis and embolism documented in this encounter Care Teams Triple Valve Tester Relationship Specialty Start Date End Date Aditya Castro MD PCP - General Student in an Organized Health Care Education/Training Program 09/11/18 documented as of this encounter
--- OUTSIDE RECORDS SUMMARY | 2024-08-18 13:34 | XMS_ITS | Encounter Summary ---
Author Organization [facility] Address [address] [place] [address] Care Team Providers Care Certified Residential Medication Aide Name Role Phone Aditya Castro MD Primary Care Provider [phone] Reason for Visit * Reason Comments Follow Up 32 Month f/u Procrit Encounter Details Date Type Department Care Team (Late st Contact Info) Description 07/31/2019 8:45 AM SPRING PRODUCTION SUPERVISOR Office Visit [facility] Oncology and Hematology - [place] [address] [facility] 200 [place] [address] Fernando Schmid MD [address] [facility] [address] [place] [address] Anemia of chronic renal failure, stage 4 (severe) (Primary Dx) Social History Tobacco Use Types [...] Sign Reading Time Taken Comments Blood Pressure 120/56 07/31/2019 9:00 AM SPRING PRODUCTION SUPERVISOR Pulse 66 07/31/2019 9:00 AM SPRING PRODUCTION SUPERVISOR Temperature 36.7 ??C (98.1 ??F) 07/31/2019 9:00 AM CS T Respiratory Rate - - Oxygen Saturation 97% 07/31/2019 9:00 AM SPRING PRODUCTION SUPERVISOR Inhaled Oxygen Concentration - - Weight 117.9 kg (260 lb) 07/31/2019 9:00 AM SPRING PRODUCTION SUPERVISOR Height 175.3 cm (5' 9 ) 07/31/2019 9:00 AM SPRING PRODUCTION SUPERVISOR Body Mass Index 38.4 07/31/2019 9:00 AM SPRING PRODUCTION SUPERVISOR documented in this encounter Progress Notes * Fernando Schmid MD - 07/31/2019 10:14 AM CST HEMATOLOGY / ONCOLOGY PROGRESS NOTE Patient Identification: Name: Juvenal Daigle Age: 48 y.o. Sex: male : 1970 DIAGNOSIS Anemia of chronic renal failure CURRENT TREATMENT Procrit every 2 weeks basis TREATMENT HISTORY Procrit started in June 2017 SUBJECTIVE Patient came into the office for follow-up visit. He denies any excessive tiredness and fatigue. Patient had an episode of nosebleed early part of July. He went to the ER and nose bleeding vesselwas cauterized. He denies any further bleeding. Denies any other new complaints. Review of system Constitutional: denies fevers, sweats, fatigue, malaise, weight loss HEENT: denies sinus congestion, hearing or vision problems Respiratory: denies cough, dyspnea, wheeze Cardiovascular: denies chest pain, exertional chest pressure/discomfort, nausea, syncope, shortnessof breath GI: denies constipation, diarrhea, dsyphagia, reflux symptoms, vomiting, melena : denies dysuria, frequency, incontinence, urgency Integumentary system: no lymphadenopathy, sweats, flushing Musculoskeletal: denies: myalgia, arthralgia Neurological: denies blurry or disturbed vision, numbness/weakness, dizziness Skin: No lumps, bumps or rashes. 12 point review system was reviewed and as above Objective: Vital signs in last 24 hours: [...] No lymphadenopathy Neuro: No obvious focal deficit Examination as above PATH LABS Labs from May 01 showed WBC 4.4 hemoglobin 8.8 platelet 183,000 Labs from July 31, 2019 showed WBC 5.4 hemoglobin 9.6 platelet 260,000. Assessment: Plan: Patient Active Problem List Diagnosis Date Noted ??? Anemia of chronic renal failure, stage 4 (severe) 06/05/2017 Anemia of chronic renal failure stage IV disease with underlying diabetes. Labs reviewed. Last Procrit injection was on July 12, 2019. He will continue with Procrit injection on every 2 weeks basis. There is a labs and Procrit injection due to insurance approval. I plan to see him back in 3 months. Chronic kidney disease. Stable and has been followed by Dr. Reyes. Coronary artery disease. Initial stent placement in March 2017. Patient had 3 more stent placed inApril 2018. Patient is on Plavix and aspirin. History of left lower extremity DVT. Resolved. 07/31/2019 Fernando Schmid MD NG PRODUCTION SUPERVISOR documented in this encounter Plan of Treatment Not on file documented as of this encounter Results * BASIC METABOLIC PANEL (10/30/2019) Blood Fernando Schmid MD CHEMISTRY ORDERABLES NON [facility] * CBC WITH DIFFERENTIAL (10/16/2019) Blood Fernando Schmid MD HEMATOLOGY ORDERABLE S EXTERNAL LAB documented in this encounter Visit Diagnoses Diagnosis Anemia of chronic renal failure, stage 4 (severe)- Primary documented in this encounter Care Teams Certified Residential Medication Aide Relationship Specialty Start Date End Date Aditya Castro MD PCP - General Student in an Organized Health Care Education/Training Program 09/11/18 documented as of this encounter
--- OUTSIDE RECORDS SUMMARY | 2024-08-18 13:34 | XMS_ITS | Encounter Summary ---
Author Organization [facility] Address [address] [place] [address] Care Team Providers Care Hitting Coach Name Role Phone Aditya Castro MD Primary Care Provider [phone] Encounter Details Date Type Department Care Team (Late st Contact Info) Description 04/05/2019 Orders Only [facility] Oncology and Hematology - [place] [address] [facility] 200 [place] [address] Fernando Schmid MD [address] [facility] [address] [place] [address] Anemia in stage 4 chronic kidney disease Social History Tobacco Use Types Packs/Day Years [...] Name Priority Date/Time Associated Diagnosis Comments CBC WITH DIFFERENTIAL Stat 04/05/2019 Anemia in stage 4 chronic kidney disease documented in this encounter Results * (ABNORMAL) CBC WITH DIFFERENTIAL (04/05/2019) Blood Fernando Schmid MD HEMATOLOGY ORDERABLE S NON [facility] documented in this encounter Visit Diagnoses Diagnosis Anemia in stage 4 chronic kidney disease documented in this encounter Care Teams Hitting Coach Relationship Specialty Start Date End Date Aditya Castro MD PCP - General Student in an Organized Health Care Education/Training Program 09/11/18 documented as of this encounter
--- OUTSIDE RECORDS SUMMARY | 2024-08-18 13:34 | XMS_ITS | Encounter Summary ---
Author Organization [facility] [employer] [facility] Address [address] [place] [address] Care Team Providers Care Last Waxer Name Role Phone Aditya Castro MD Primary Care Provider [phone] Reason for Visit * Reason Onset Date Comments Needs Orders Written 07/30/2019 Encounter Details Date Type Department Care Team (Late st Contact Info) Description 07/30/2019 Telephone [facility] Oncology and Hematology - [place] [address] [place] [address] [facility] 200 [place] [address] Fernando Schmid MD [address] [facility] [address] [place] [address] Needs Orders Written Social History Tobacco Use Types Packs/Day Years [...] encounter Miscellaneous Notes * Telephone Encounter - Ramona Ladd - 07/30/2019 4:30 PM CST Has to have for insurance approval for procrit. AL LOGISTICS MANAGER documented in this encounter Plan of Treatment Scheduled Orders Name Type Priority Associated Diagnoses Orde r Schedule FERRITIN Lab Routine Anemia of chronic renal failure, stage 4 (severe) Anemia in stage 4 chronic kidney disease Expected: 07/30/2019, Expires: 07/30/2020 documented as of this encounter Results * TRANSFERRIN RECEPTOR TFR SOLUBLE (08/15/2019) Blood Fernando Schmid MD CHEMISTRY ORDERABLES NON [facility] * IRON, TIBC, AND PERCENT SATURATION (08/15/2019) Blood Fernando Schmid MD CHEMISTRY ORDERABLES Performing Organization Address City/[facility] Co de Phone Number NON [facility] documented in this encounter Visit Diagnoses Diagnosis Anemia of chronic renal failure, stage 4 (severe)- Primary Anemia in stage 4 chronic kidney disease documented in this encounter Care Teams Last Waxer Relationship Specialty Start Date End Date Aditya Castro MD PCP - General Student in an Organized Health Care Education/Training Program 09/11/18 documented as of this encounter
--- OUTSIDE RECORDS SUMMARY | 2024-08-18 13:34 | XMS_ITS | Encounter Summary ---
Author Organization [facility] Address [address] [place] [address] Care Team Providers Care Professional Caster Name Role Phone Aditya Castro MD Primary Care Provider [phone] Encounter Details Date Type Department Care Team (Late st Contact Info) Description 02/08/2019 Orders Only [facility] Oncology and Hematology - [place] [address] [facility] [address] [place] [address] Fernando Schmid MD [address] [facility] [address] [place] [address] Anemia in stage 4 chronic [...] Associated Diagnosis Comments CBC WITH DIFFERENTIAL Stat 02/08/2019 Anemia in stage 4 chronic kidney disease documented in this encounter Results * (ABNORMAL) CBC WITH DIFFERENTIAL (02/08/2019) Blood Fernando Schmid MD HEMATOLOGY ORDERABLE S NON [facility] documented in this encounter Visit Diagnoses Diagnosis Anemia in stage 4 chronic kidney disease documented in this encounter Care Teams Professional Caster Relationship Specialty Start Date End Date Aditya Castro MD PCP - General Student in an Organized Health Care Education/Training Program 09/11/18 documented as of this encounter
--- OUTSIDE RECORDS SUMMARY | 2024-08-18 13:34 | XMS_ITS | Encounter Summary ---
Author Organization [facility] Address [address] [place] [address] Care Team Providers Care Survey And Mapping Technician Name Role Phone Aditya Castro MD Primary Care Provider [phone] Encounter Details Date Type Department Care Team (Late st Contact Info) Description 04/26/2019 Orders Only [facility] Oncology and Hematology - [place] [address] [facility] [address] [place] [address] Fernando Schmid MD [address] [facility] [address] [place] [address] Anemia in stage 4 chronic [...] Date/Time Associated Diagnosis Comments CBC WITH DIFFERENTIAL Routine 05/01/2019 Anemia in stage 4 chronic kidney disease BASIC METABOLIC PANEL Routine 05/01/2019 Anemia in stage 4 chronic kidney disease documented in this encounter Results * (ABNORMAL) CBC WITH DIFFERENTIAL (05/01/2019) Blood Fernando Schmid MD HEMATOLOGY ORDERABLE S EXTERNAL LAB * (ABNORMAL) BASIC METABOLIC PANEL (05/01/2019) Blood Fernando Schmid MD CHEMISTRY ORDERABLES Performing Organization Address City/[facility]/ZIP Co de Phone Number EXTERNAL LAB documented in this encounter Visit Diagnoses Diagnosis Anemia in stage 4 chronic kidney disease documented in this encounter Care Teams Survey And Mapping Technician Relationship Specialty Start Date End Date Aditya Castro MD PCP - General Student in an Organized Health Care Education/Training Program 09/11/18 documented as of this encounter
--- OUTSIDE RECORDS SUMMARY | 2024-08-18 13:34 | XMS_ITS | Encounter Summary ---
Author Organization [facility] Address [address] [place] [address] Care Team Providers Care Lens Blocker Name Role Phone Aditya Castro MD Primary Care Provider [phone] Encounter Details Date Type Department Care Team (Late st Contact Info) Description 04/15/2019 Telephone [facility] Oncology and Hematology - [place] [address] [facility] [address] [place] [address] Fernando Schmid MD [address] [facility] [address] [place] [address] Social History Tobacco Use Types [...] on filedocumented in this encounter Care Teams Lens Blocker Relationship Specialty Start Date End Date Aditya Castro MD PCP - General Student in an Organized Health Care Education/Training Program 09/11/18 documented as of this encounter
--- OUTSIDE RECORDS SUMMARY | 2024-08-18 13:34 | XMS_ITS | Encounter Summary ---
Author Organization [facility] Address [address] [place] [address] Care Team Providers Care Delivery Agent Name Role Phone Aditya Castro MD Primary Care Provider [phone] Encounter Details Date Type Department Care Team (Late st Contact Info) Description 03/07/2019 Orders Only [facility] Oncology and Hematology - [place] [address] [facility] 200 [place] [address] Fernando Schmid MD [address] [facility] [address] [place] [address] Anemia in stage 4 chronic [...] Associated Diagnosis Comments CBC WITH DIFFERENTIAL Stat 03/06/2019 Anemia in stage 4 chronic kidney disease documented in this encounter Results * (ABNORMAL) CBC WITH DIFFERENTIAL (03/06/2019) Blood Fernando Schmid MD HEMATOLOGY ORDERABLE S NON [facility] documented in this encounter Visit Diagnoses Diagnosis Anemia in stage 4 chronic kidney disease documented in this encounter Care Teams Delivery Agent Relationship Specialty Start Date End Date Aditya Castro MD PCP - General Student in an Organized Health Care Education/Training Program 09/11/18 documented as of this encounter
--- OUTSIDE RECORDS SUMMARY | 2024-08-18 13:34 | XMS_ITS | Encounter Summary ---
Author Organization [facility] Address [address] [place] [address] Care Team Providers Care Blending Operator Name Role Phone Aditya Castro MD Primary Care Provider [phone] Reason for Visit * Reason Onset Date Comments Needs Orders Written 07/30/2019 Encounter Details Date Type Department Care Team (Late st Contact Info) Description 07/30/2019 Telephone [facility] Oncology and Hematology - [place] [address] [place] [address] [facility] [address] [place] [address] Fernando Schmid MD [address] [facility] [address] [place] [address] Needs Orders Written Social History [...] Telephone Encounter - Ramona Ladd - 07/30/2019 12:27 PM CST Has to have for insurance approval for procrit. TIC SURGERY TECHNICIAN documented in this encounter Plan of Treatment Not on file documented as of this encounter Visit Diagnoses Diagnosis Anemia of chronic renal failure, stage 4 (severe)- Primary Anemia in stage 4 chronic kidney disease documented in this encounter Care Teams Blending Operator Relationship Specialty Start Date End Date Aditya Castro MD PCP - General Student in an Organized Health Care Education/Training Program 09/11/18 documented as of this encounter
--- OUTSIDE RECORDS SUMMARY | 2024-08-18 13:34 | XMS_ITS | Encounter Summary ---
Author Organization [facility] Address [address] [facility] Attn: Epic Prelude ADT [place] [address] Care Team Providers Care Shade Classifier Name Role Phone Aditya Castro MD Primary Care Provider [phone] Encounter Details Date Type Department Care Team (Latest Contact Info) Description 07/02/2022 Travel Social History Tobacco Use Types Packs/Day [...] suspected to have Coronavirus/COVID-19? No / Unsure 07/02/2022 12:57 PM LAND SURVEYING MANAGER documented as of this encounter Plan of Treatment Not on file documented as of this encounter Visit Diagnoses Not on filedocumented in this encounter Care Teams Shade Classifier Relationship Specialty Start Date End Date Aditya Castro MD PCP - General Student in an Organized Health Care Education/Training Program 09/11/18 documented as of this encounter
--- OUTSIDE RECORDS SUMMARY | 2024-08-18 13:34 | XMS_ITS | Encounter Summary ---
Author Organization [facility] Address [address] [place] [address] Care Team Providers Care Ldr Nurse Name Role Phone Aditya Castro MD Primary Care Provider [phone] Encounter Details Date Type Department Care Team (Late st Contact Info) Description 07/31/2019 Orders Only [facility] Oncology and Hematology - [place] [address] [facility] [address] [place] [address] Fernando Schmid MD [address] [facility] [address] [place] [address] Anemia of chronic renal failure, stage 4 (severe); Anemia in stage 4 chronic kidney disease [...] Procedure Name Priority Date/Time Associated Diagnosis Comments TRANSFERRIN RECEPTOR TFR SOLUBLE Routine 08/15/2019 Anemia of chronic renal failure, stage 4 (severe) Anemia in stage 4 chronic kidney disease IRON, TIBC, AND PERCENT SATURATION Routine 08/15/2019 Anemia of chronic renal failure, stage 4 (severe) Anemia in stage 4 chronic kidney disease documented in this encounter Results * IRON, TIBC, AND PERCENT SATURATION (08/15/2019) Blood Fernando Schmid MD CHEMISTRY ORDERABLES Performing Organization Address [facility] Co de Phone Number NON Parature LAB * TRANSFERRIN RECEPTOR TFR SOLUBLE (08/15/2019) Blood Fernando Schmid MD CHEMISTRY ORDERABLES Performing Organization Address [facility] Co de Phone Number NON Aditive LAB documented in this encounter Visit Diagnoses Diagnosis Anemia of chronic renal failure, stage 4 (severe) Anemia in stage 4 chronic kidney disease documented in this encounter Care Teams Ldr Nurse Relationship Specialty Start Date End Date Aditya Castro MD PCP - General Student in an Organized Health Care Education/Training Program 09/11/18 documented as of this encounter
--- OUTSIDE RECORDS SUMMARY | 2024-08-18 13:34 | XMS_ITS | Encounter Summary ---
Author Organization [facility] Address [address] [place] [address] Care Team Providers Care Marshmallow Machine Worker Name Role Phone Aditya Castro MD Primary Care Provider [phone] Encounter Details Date Type Department Care Team (Latest Contact Info) Description 06/29/2022 2:35 PM PLANT CYTOLOGIST - 07/08/2022 1:46 PM PLANT CYTOLOGIST Hospital Encounter [facility] Unit [address] [place] [id number] [place] [id number] [place] [address] Acute on chronic HFrEF (heart failure with reduced ejection fraction) Discharge Disposition: Home or Self Care Social [...] Coronavirus/COVID-19? No / Unsure 07/02/2022 12:57 PM PLANT CYTOLOGIST documented as of this encounter Last Filed Vital Signs Vital Sign Reading Time Taken Comments Blood Pressure 102/63 07/08/2022 7:25 AM PLANT CYTOLOGIST Pulse 72 07/08/2022 7:25 AM PLANT CYTOLOGIST Temperature 36.8 ??C (98.3 ??F) 07/08/2022 4:42 AM CS T Respiratory Rate 16 07/08/2022 7:25 AM PLANT CYTOLOGIST Oxygen Saturation 98% 07/08/2022 7:25 AM PLANT CYTOLOGIST Inhaled Oxygen Concentration - - Weight 116.1 kg (256 lb) 07/08/2022 9:00 AM PLANT CYTOLOGIST Height 177.8 cm (5' 10 ) 06/29/2022 6:00 PM PLANT CYTOLOGIST Body Mass Index 36.73 06/29/2022 6:00 PM PLANT CYTOLOGIST documented in this encounter Discharge Summaries * Srinivas Jon MD - 07/07/2022 4:47 PM CST Images from the original note were not included. Discharge Summary Admit Date and Time: 06/29/2022 2:35 PM Discharge Date: 07/08/2022 Discharge Diagnosis: Debility CAD, s/p NSTEMI, s/p PCI Cardiogenic shock Afib Acute on chronic systolic CHF ESRD, on PD DM HTN AHRF Dysphagia Severe obsity, BMI 37 Hospital Course: 51 year old male with a history of CHF (EF 50% 2016), Afib (not on AC), HTN, CAD s/p stent 04/06 and3 stent 12/07, T1DM (insulin pump at home), ESRD on PD, HLD, GERD, hyperparathyroidism, DDD, OA, gout, BEN on CPAP who initially presented to [facility] for n/v and chest pain. Per Pt he had 3 days of generalized weakness, chills, ROONEY, n/v, chest pain relieved by sublingual ntg. His labs were notable for trop 1.0-->1.09-->0.729, BNP 70344. He had a CT CAP showing cholelithiasis and likely PNA. RUQ US showed distended gallbladder with gallstones and gallbladder wall thickening, recommended HIDA scan. He was treated with ctx/azithromycin. Pt was started on a heparin gtt. Cath on 06/03 showed previous PCI to proximal and distal right coronary patent, 99% ostial circumflex stenosis as well as 90% circumflex lesion after origin of largest OM branch, mild diffuse disease in LAD which does not appear to be flow limiting. Pt was recommended PCI of left circumflex as optimal treatment. Pt was transfered to [facility] on 06/05. Upon arrival EKG showed sinus bradycardia, 1st deg AV block. ACT was called for substernal chest pressure and hypoxemia, he was placed on BiPAP with improvement in oxygen saturation and transferred to the MICU, where he was placed on AVAPS. CXR showed significantly worsened pulmonary edema. Trop 4797 -> 4266 in the MICU, EKG was unchanged. Pt was startedon kaylah for cholecystitis. He was continued on heparin gtt, started on nitro gtt for BP control andO2 was weaned to nasal cannula. Pt underwent complex PCI 06/07, PCI revealed ostial circ lesion of 90%, large OM with 70% narrowing. Patient became hypotensive and hypoxemic requiring levo and epi gtt. The patient was intubated. The left dominant circumflex and OM were then stented. Impella was inserted. A swan liv catheter and L IJ trialysis were also placed. Impella was weaned slowly and removed 06/10. Pressors and vent settings were weaned slowly, and patient was ultimately extubated on 06/20. Passed MBS and was started on a PO DM diet. Pt is tolerating well. DVT ppx-heparin. Diet-diabetic/cardiac. Cannot be fully AC. Dopplers neg for DVTs. As patient was medically appropriate, he was tr ansferred to [facility] for comprehensive rehabilitation on 06/29/22. The patient was admitted to [facility] to undergo intensive inpatient rehabilitation for functional deficits and debility secondary to the above noted diagnosis and hospital course. They participated fairlywell with all disciplines of therapy and made progress as noted below in the score documentation. The following medical issues were addressed during this rehab stay: Debility: Completed inpatient comprehensive interdisciplinary rehabilitation to address strengthening, mobility skills, self care, cognitive functioning, speech, communication and swallowing needs. CAD, s/p NSTEMI, s/p PCI. Cont asa, metoprolol, statin. Cardiogenic shock Afib: metoprolol, DAPT Acute on chronic systolic CHF: EF 65%: cont lasix, metoprolol, losartan, imdur ESRD, on PD: renal consulted DM: insulin pump at home, resumed per home settings HTN: metoprolol, lasix, clonidine, hydralazine AHRF: pulm toilet, BD prn Dysphagia: resolved, passed MBS 06/21 Severe obsity, BMI 37: encourage weight cessation. DVT Prevention: heparin Pain Management: apap, norco prn Stress ulcer prophylaxis: PPI Discharge Functional status: PT: ambulated 150' with WWR and CGA/SBA. Denies any dizziness/lightheadedness. OT: CGA mainly, min LE drsg and foot wear. ZINC PLATER: min for memory and PS. Goals: progressing well, reaching CGA-SBA; continue to address his medical stability, orthostasis, strengthening, endurance, balance to reach mod I at dc ELOS: 07/09 [facility] PT, OT, ZINC PLATER, RN. Discharge Destination: home Condition: stable Discharge Diet: ADA Discharge Activity: as tolerated Discharge Medications: Medication List START taking these medications calcium acetate 667 mg Tablet tablet Commonly known as: CALPHRON Take 1 Tablet (667 mg) by mouth 3 times daily before meals. Signed by: Dr. Srinivas Jon MD Quantity: 90 Tablet Refills: 0 gentamicin 0.1 % Ointment Commonly known as: GARAMYCIN Apply to affected area daily. Start taking on: July 08, 2022 Signed by: Dr. Srinivas Jon MD Refills: 0 metoprolol tartrate 25 mg tablet Commonly known as: LOPRESSOR Take 0.5 Tablets (12.5 mg) by mouth 2 times daily. Signed by: Dr. Srinivas Jon MD Quantity: 30 Tablet Refills: 0 peg [id number]-[id number] 1-0.2-0.2 % solution Administer 1 Drop in both eyes 4 times daily. Signed by: Dr. Srinivas Jon MD Refills: 0 CHANGE how you take these medications atorvastatin 80 mg tablet Commonly known as: LIPITOR What changed: medication strength how much to take when to take this Another medication with the same name was removed. Continue taking this medication, and follow the directions you see here. Take 1 Tablet (80 mg) by mouth daily. Start taking on: July 08, 2022 Signed by: Dr. Srinivas Jon MD Quantity: 30 Tablet Refills: 0 doxycycline monohydrate 50 mg Capsule Commonly known as: MONODOX What changed: how much to take how to take this when to take this Take 1 Capsule (50 mg) by mouth every 12 hours for 2 days. Signed by: Dr. Srinivas Jon MD Quantity: 4 Capsule Refills: 0 isosorbide mononitrate 30 mg Extended Release 24 hour tablet Commonly known as: IMDUR What changed: Another medication with the same name was removed. Continue taking this medication, and follow the directions you see here. Take 30 mg by mouth daily meat products demonstrator. Refills: 0 CONTINUE taking these medications aspirin 81 mg Tablet, Chewable Commonly known as: JOSEPH CHEWABLE Take 81 mg by mouth daily. Refills: 0 * TRUEplus Pen Needle 31 gauge x 5/16 Needle TRUEplus Pen Needle 31 gauge x 5/16 Refills: 0 Generic drug: Insulin [place] (Disposable) * BD Ultra-Fine Short Pen Needle 31 gauge x 5/16 Needle U ONE PEN NEEDLE TO INJ INSULIN SC QID Refills: 1 Generic drug: Insulin [place] (Disposable) calcitRIOL 0.25 mcg capsule Commonly known as: ROCALTROL Take 0.25 mcg by mouth daily. Refills: 0 cetirizine 10 mg tablet Commonly known as: ZyrTEC Take 10 mg by mouth daily. Refills: 0 colchicine 0.6 mg tablet Commonly known as: COLCRYS Take 0.6 mg by mouth daily. Refills: 0 ezetimibe 10 mg tablet Commonly known as: ZETIA Take 10 mg by mouth daily. Refills: 0 furosemide 40 mg tablet Commonly known as: LASIX Take 40 mg by mouth 2 times daily . Refills: 0 nitroglycerin 0.4 mg Tablet, Sublingual Commonly known as: NITROSTAT Place 0.4 mg under tongue every 5 minutes as needed for Chest Pain. Refills: 0 OneTouch Delica Lancets 30 gauge OneTouch Delica Lancets 30 gauge Refills: 0 Generic drug: lancets Plavix 75 mg Tablet Take 75 mg by mouth daily . Refills: 0 Generic drug: clopidogreL Procrit 20,000 unit/mL Solution Procrit 20,000 unit/mL injection solution Refills: 0 Generic drug: epoetin genia Ranexa 500 mg Extended Release 12 hour tablet Refills: 0 Generic drug: ranolazine ER raNITIdine 300 mg tablet Commonly known as: ZANTAC Take 300 mg by mouth daily at bedtime. Refills: 0 True Metrix Glucose Meter Refills: 0 Generic drug: Blood-Glucose Meter * True Metrix Glucose Test Strip Strip True Metrix Glucose Test Strip Refills: 0 Generic drug: blood sugar diagnostic * True Metrix Glucose Test Strip Strip Refills: 0 Generic drug: blood sugar diagnostic Viagra 50 mg tablet Viagra 50 mg tablet Refills: 0 Generic drug: sildenafiL Vitamin D2 50,000 unit capsule Take 50,000 Units by mouth. Refills: 0 Generic drug: ergocalciferol * !!Potential duplicate medications found. Review medication list carefully. STOP taking these medications albuterol 2.5 mg /3 mL (0.083 %) Solution for Nebulization Commonly known as: PROVENTIL,VENTOLIN amLODIPine 5 mg tablet Commonly known as: NORVASC atorvastatin 20 mg tablet Commonly known as: LIPITOR You also have another medication with the same name that you need to continue taking as instructed. benzonatate 200 mg capsule Commonly known as: TESSALON carvediloL 25 mg tablet Commonly known as: COREG cholecalciferol 1,250 mcg (50,000 unit) Capsule cloNIDine HCL 0.1 mg tablet Commonly known as: CATAPRES cyclobenzaprine 10 mg tablet Commonly known as: FLEXERIL FERROUS SULFATE ORAL gemfibroziL 600 mg tablet Commonly known as: LOPID glucagon emergency 1 mg Recon Soln HumaLOG KwikPen Insulin 100 unit/mL pen syringe Generic drug: insulin lispro hydrALAZINE 10 mg tablet Commonly known as: APRESOLINE insulin glargine 100 unit/mL pen syringe Commonly known as: LANTUS isosorbide mononitrate 60 mg Extended Release 24 hour tablet Commonly known as: IMDUR You also have another medication with the same name that you need to continue taking as instructed. ketoconazole 2 % Shampoo Commonly known as: NIZORAL Phentermine 15 mg Capsule prednisoLONE acetate 1 % suspension Commonly known as: PRED FORTE predniSONE 10 mg tablet Commonly known as: DELTASONE selenium sulfide 2.5 % Lotion Commonly known as: SELSUN terazosin 2 mg capsule Commonly known as: HYTRIN Uloric 40 mg Tablet Generic drug: febuxostat Where to Get Your Medications These medications were sent to [id number] - [place], [place] - [address] [place] [facility] [phone], [place] [address] atorvastatin 80 mg tablet calcium acetate 667 mg Tablet tablet doxycycline monohydrate 50 mg Capsule metoprolol tartrate 25 mg tablet Please take the prescriptions given to you during your stay and have them filled at any pharmacy. You don't need a prescription for these medications peg [id number] 1-0.2-0.2 % solution Recommended Follow up: PCP, Aditya Lara MD [phone] Cardiology Endocrinology Srinivas Jon MD CC: Aditya Lara MD T CYTOLOGIST documented in this encounter Discharge Instructions * Discharge Instructions* Srinivas Jon MD - 07/07/2022 11:00 AM PLANT CYTOLOGIST Discharge: home Condition: stable Recommended diet: Renal Diet/Diabetic Diet Recommended activity: activity as tolerated Follow up: PCP, Aditya Lara MD [phone] Cardiology Endocrinology Post Discharge Safety Recommendations No driving any vehicle until cleared by physician No return to work until cleared by physician No operating power equipment No alcohol use No tobacco use Precautions: No orders of the defined types were placed in this encounter. Weight Bearing:Weight-Bearing Status: no weight-bearing restrictions (07/06/22 0900) Diet: DIET DIABETIC 2GM Sodium (Low), ONGOING WOUND CARE:keep wound clean and dry CONTINUED THERAPY and/or INTERMEDIATE CARE: Home Health - [facility] - . They will call you for your first visit. Physical Therapy Occupational Therapy Speech Therapy DURABLE MEDICAL EQUIPMENT : Your prescription for a walker has been sent to [facility] [phone]. If there are problems please contact them. Your equipment (walker) was provided to you prior to discharge. Activity Status: Activity Assist Needed Screening: Supervision;With stand by assist (07/07/22 0900) Transfers: Modified [place], Supervision, with gait belt, and with walker Upper body dressing: Independent Lower body dressing: Modified [place] Bath: Supervision seated (recommend purchasing shower chair- can order on Nicole Pacheco, JOHNNIE, Chad) [facility] FAX: [phone] [facility] Copy Writer: Carey Lo LMSW T CYTOLOGIST documented in this encounter Medications at Time of Discharge Medication Sig Dispensed Refills Start Date End Date atorvastatin (LIPITOR) 80 mg tablet Take 1 Tablet (80 mg) by mouth daily. 30 Tablet 07/08/2022 calcium acetate (CALPHRON) 667 mg Tablet tablet Take 1 Tablet (667 mg) by mouth 3 times daily before meals. 90 Tablet 07/07/2022 gentamicin (GARAMYCIN) 0.1 % Ointment Apply to affected area daily. 07/08/2022 metoprolol tartrate (LOPRESSOR) 25 mg tablet Take 0.5 Tablets (12.5 mg) by mouth 2 times daily. 30 Tablet 07/07/2022 peg [id number]-cgewp rin 1-0.2-0.2 % solution Administer 1 Drop in both eyes 4 times daily. 07/07/2022 Insulin [place], Disposable, (TRUEPLUS PEN NEEDLE) 31 gauge x [...] mouth. TRUE METRIX GLUCOSE TEST STRIP Strip 07/11/2018 TRUE METRIX GLUCOSE METER 07/11/2018 RANEXA 500 mg Extended Release 12 hour tablet 06/12/2018 BD ULTRA-FINE SHORT PEN NEEDLE 31 gauge x 5/16 Needle U ONE PEN NEEDLE TO INJ INSULIN SC QID 1 01/30/2018 isosorbide mononitrate (IMDUR) 30 mg Extended Release 24 hour tablet Take 30 mg by mouth daily meat products demonstrator. clopidogrel (PLAVIX) 75 mg Tablet Take 75 mg by mouth daily . furosemide (LASIX) 40 mg tablet Take 120 mg by mouth 2 times daily. nitroglycerin (NITROSTAT) 0.4 mg Tablet, Sublingual Place 0.4 mg under tongue every 5 minutes as needed for Chest Pain. doxycycline monohydrate (MONODOX) 50 mg Capsule Take 1 Capsule (50 mg) by mouth every 12 hours for 2 days. 4 Capsule 07/07/2022 07/09/2022 documented as of this encounter Progress Notes * Leonela Lantigua RN - 07/08/2022 1:50 PM CST Bedside report completed. Pt resting in bed. Pt still connected with PD. Pt did his disconnect on first rounds. Pt participated in therapy. No c/o pain. BG this am per our meter 78 per pt monitor-98.Pt did not give extra insulin. Current rate this am 1.7unit/hr. At lunch our meter 272. Pt meter 320. Pt gave 2.05 units. states he will see his MD about getting his monitor calibrated. Current rate 0.8units/hr. d/c paperwork reviewed with the pt. pt left with his brother at 1:43pm T CYTOLOGIST * Srinivas Jon MD - 07/08/2022 11:02 AM CST REHAB/PMA&R DAILY PROGRESS NOTE Date: 07/08/2022 Time: 11:02 AM Subjective: Slept, No overnight events. No new issues. IM and renal input appreciated. ESRD on PD. Insulin pump per home regimen. Eucerin for dry skin. Completed IP therapy, reached CGA-SBA. Dc home today after therapy. Meds e- scribed. [facility] ordered. Pt is aware. Function status and progress towards rehab goals: PT: ambulated 150' with WWR and CGA/SBA. Denies any dizziness/lightheadedness. OT: CGA mainly, min LE drsg and foot wear. ZINC PLATER: min for memory and PS. Goals: met, reached CGA-SBA; ELOS: 07/09 [facility] PT, OT, ZINC PLATER, RN. Review of System: No fever, nausea/vomiting, chest pain, or shortness of breath. Exam: BP 131/70 (BP Location: Right arm, Patient Position (BP): Supine) Pulse 65 Temp 98.3 ??F (36.8 ??C) (Oral) Resp 18 Ht 5' 10 (1.778 m) Wt 117.5 kg (259 lb) SpO2 97% BMI 37.16 kg/m?? General appearance: alert, in no distress Skin/sores/incisions: No rashes or lesions; Musculoskeletal: LE edema Neurologic: Mental status: Alert, awake, responsive, oriented to time and place and person, attentive. Language: Fluent, good naming and good repetition. Cranial nerves: Pupils are normal reactive to light EOM: full, normal visual charles No ptosis Normal facial sensation and no facial weakness Normal hearing Muscle strength: 5/5 in UE/LExts proximally and distally bilaterally. Psych: affect is euthymic. Current Medications: Facility-Administered Medications as of 07/08/2022 Medication Dose Frequency Provider Last Rate Last Admin tiZANidine (ZANAFLEX) tablet 2 mg 2 mg every 12 hours Srinivas Jon MD 2 mg at 07/08/22 0559 doxycycline monohydrate (MONODOX) capsule 50 mg 50 mg every 12 hours (2 times daily) Avni Clifford PA 50 mg at 07/08/22 0729 mineral oil-white petrolatum-ceresin (EUCERIN) topical cream daily Jasmin Bradley MD Given at 736 metoprolol tartrate (LOPRESSOR) tablet 12.5 mg 12.5 mg BID Avni Clifford PA 12.5 mg at 729 furosemide (LASIX) tablet 80 mg 80 mg daily Jasmin Bradley MD 80 mg at 07/08/22 0729 [COMPLETED] potassium chloride (KLOR-CON) SR tablet 40 mEq 40 mEq ONE time only Jasmin Bradley MD 40 mEq at 07/03/22 0533 aspirin (ECOTRIN EC) tablet 81 mg 81 mg daily Jasmin Bradley MD 81 mg at 07/08/22 0728 darbepoetin genia (ARANESP) 100 mcg/0.5 mL injection 100 mcg 100 mcg every 7 days Jasmin Bradley MD 100mcg at 07/03/22 1005 [COMPLETED] potassium chloride (KLOR-CON) SR tablet 40 mEq 40 mEq ONE time only Avni Clifford PA 40 mEq at 07/01/22 1100 calcium acetate (CALPHRON) tablet 667 mg 667 mg TID BEFORE meals Avni Clifford PA 667 mg at 07/08/22 0730 peg [id number]-qoqndelm 1-0.2-0.2 % ophthalmic solution 1 Drop 1 Drop QID Avni Clifford PA 1 Drop at 07/08/22 07 calcitRIOL (ROCALTROL) capsule 0.25 mcg 0.25 mcg daily Avni Clifford PA 0.25 mcg at 07/08/22 07 heparin injection 5,000 Units 5,000 Units every 8 hours Avni Clifford PA 5,000 Units at 07/08/22 0500 atorvastatin (LIPITOR) tablet 80 mg 80 mg daily Avni Clifford PA 80 mg at 07/08/22 07 clopidogreL (PLAVIX) tablet 75 mg 75 mg daily Avni Clifford PA 75 mg at 07/08/22 07 nitroglycerin (NITROSTAT) tablet 0.4 mg 0.4 mg every 5 minutes PRN Avni Clifford PA isosorbide mononitrate (IMDUR) SR 24 hour tablet 30 mg 30 mg daily Avni Clifford PA 30 mg at 07/08/22 0730 pantoprazole (PROTONIX) tablet 40 mg 40 mg daily Avni Clifford PA 40 mg at 07/08/22 0559 gentamicin (GARAMYCIN) 0.1 % topical ointment daily Avni Clifford PA Given at 07/04/22 0900 naloxone (NARCAN) 0.4 mg/mL injection 0.1 mg 0.1 mg see admin instructions Avni Clifford PA ondansetron (ZOFRAN ODT) tablet 4 mg 4 mg every 6 hours PRN Avni Clifford PA prochlorperazine maleate (COMPAZINE) tablet 10 mg 10 mg every 6 hours PRN Avni Clifford PA albuterol (PROVENTIL,VENTOLIN) 2.5 mg /3 mL (0.083 %) inhalation solution 2.5 mg 2.5 mg resp, every6 hours PRN Avni Clifford PA bisacodyL (DULCOLAX) delayed release tablet 5 mg 5 mg daily PRN Avni Clifford PA bisacodyL (DULCOLAX) rectal suppository 10 mg 10 mg daily PRN Avni Clifford PA aluminum - magnesium - simethicone (MYLANTA) 200-200-20 mg/5 mL oral suspension 30 mL 30 mL every 4hours PRN Avni Clifford PA calcium as carbonate (TUMS) 500 mg (200 mg elemental) chewable tablet 200 mg 200 mg every 4 hours PRN Avni Clifford PA folic acid-Vit B6-Vit B12 (FOLTX) per tablet 1 Tablet 1 Tablet daily Avni Clifford PA 1 Tablet at 07/08/22 0729 dextrose 5% - sodium chloride 0.9% infusion see admin instructions Avni Clifford PA dextrose 50% (D50) syringe 12.5 Gram 12.5 Gram see admin instructions Avni Clifford PA dextrose 50% (D50) syringe 25 Gram 25 Gram see admin instructions Avni Clifford PA glucagon human recombinant (GLUCAGEN) 1 mg/mL injection 1 mg 1 mg see admin instructions Avni Clifford PA dextrose 50% (D50) syringe 12.5 Gram 12.5 Gram see admin instructions Avni Clifford PA dextrose 50% (D50) syringe 25 Gram 25 Gram see admin instructions Avni Clifford PA glucagon human recombinant (GLUCAGEN) 1 mg/mL injection 1 mg 1 mg see admin instructions Avni Clfiford PA insulin aspart pump basal (NovoLOG) 100 unit/mL infusion TID Avni Clifford PA 1.7 Units/hr at 07/08/22 0801 insulin lispro (HumaLOG) variable dose injection QID WITH meals and HS Avni Clifford PA 6.6 Units at 07/07/22 1700 colchicine (COLCRYS) tablet 0.6 mg 0.6 mg every 48 hours Avni Clifford PA 0.6 mg at 07/08/22 0728 ezetimibe (ZETIA) tablet 10 mg 10 mg daily Avni Clifford PA 10 mg at 07/08/22 0728 ranolazine ER (RANEXA) SR 12 hour tablet 500 mg 500 mg every 12 hours (2 times daily) Avni Clifford PA 500 mg at 07/08/22 0730 cetirizine (ZyrTEC) tablet 5 mg 5 mg daily PRN Avni Clifford PA 5 mg at 06/30/22 0801 [COMPLETED] New Admission Meds - retrieve upon admission every 4 hours Avni Clifford PA Given at 06/29/22 1600 melatonin tablet 6 mg 6 mg daily BEDTIME Avni Clifford PA 6 mg at 07/07/22 2141 acetaminophen (TYLENOL) tablet 650 mg 650 mg every 6 hours PRN Srinivas Jon MD 650 mg at 06/30/22 0801 HYDROcodone-acetaminophen (NORCO) 5-325 mg per tablet 1 Tablet 1 Tablet every 6 hours PRN Srinivas Jon MD 1 Tablet at 07/06/222016 Data: UA result (most recent): Lab Results Component Value Date/Time PHUA 5.0 06/30/2022 02:55 PM SGUR 1.024 06/30/2022 02:55 PM URINELEUKOC Negative 06/30/2022 02:55 PM NITRITEUA Negative 06/30/2022 02:55 PM KETONEURINE Negative 06/30/2022 02:55 PM PROTEINUA Negative 06/30/2022 02:55 PM GLUUA 2+ (A) 06/30/2022 02:55 PM BLOODUA Negative 06/30/2022 02:55 PM Urine Random Protein result: No results found for: PROTEINUR CBC result (most recent): Lab Results Component Value Date/Time WBC 3.6 (L) 07/08/2022 04:53 AM HGB 9.2 (L) 07/08/2022 04:53 AM HCT 28.5 (L) 07/08/2022 04:53 AM PLT 247 07/08/2022 04:53 AM MCV 94.1 07/08/2022 04:53 AM BMP result (most recent): Lab Results Component Value Date/Time NA 139 07/08/2022 04:53 AM K 3.6 07/08/2022 04:53 AM CL 99 07/08/2022 04:53 AM CO2 28 07/08/2022 04:53 AM CA 9.4 07/08/2022 04:53 AM BUN 40 (H) 07/08/2022 04:53 AM CREAT 6.94 (H) 07/08/2022 04:53 AM GLUCOSE 82 07/08/2022 04:53 AM ANIONGAP 12 07/08/2022 04:53 AM CMP result (most recent): Lab Results Component Value Date/Time NA 139 07/08/2022 04:53 AM K 3.6 07/08/2022 04:53 AM CL 99 07/08/2022 04:53 AM CO2 28 07/08/2022 04:53 AM CA 9.4 07/08/2022 04:53 AM BUN 40 (H) 07/08/2022 04:53 AM CREAT 6.94 (H) 07/08/2022 04:53 AM GLUCOSE 82 07/08/2022 04:53 AM TOTALPROTEIN 6.1 (L) 07/08/2022 04:53 AM ALBUMIN 3.2 (L) 07/08/2022 04:53 AM BILITOTAL 0.3 07/08/2022 04:53 AM ALKPHOS 99 07/08/2022 04:53 AM AST 49 (H) 07/08/2022 04:53 AM ALT 54 (H) 07/08/2022 04:53 AM ANIONGAP 12 07/08/2022 04:53 AM LIPID panel result (most recent): No results found for: CHOLTOT, HDL, LDLCALC, LDLDIRECT, TRIGLYCERIDE GLUCOSE result (most recent): Lab Results Component Value Date/Time GLUCOSE 82 07/08/2022 04:53 AM Coagulation result (most recent): No results found for: PT, INR, APTT Assessment and Plan: Debility: Completed inpatient comprehensive interdisciplinary rehabilitation to address strengthening, mobility skills, self care, cognitive functioning, speech, communication and swallowing needs. CAD, s/p NSTEMI, s/p PCI. Cont asa, metoprolol, statin. Cardiogenic shock Afib: metoprolol, DAPT Acute on chronic systolic CHF: EF 65%: cont lasix, metoprolol, losartan, imdur ESRD, on PD: renal consulted DM: insulin pump at home, resumed per home settings HTN: metoprolol, lasix, clonidine, hydralazine AHRF: pulm toilet, BD prn Dysphagia: resolved, passed MBS 06/21 Severe obsity, BMI 37: encourage weight cessation. DVT Prevention: dc heparin Pain Management: apap prn Stress ulcer prophylaxis: PPI Bladder management: monitor voiding pattern, monitor bladder scans/PVRs, straight cath per parameters. Bowel management: monitor stooling pattern, continue bowel program adjust laxatives as needed. Code: full F/u: PCP, Aditya Lara MD [phone] Cardiology Endocrinology Srinivas Jon MD T CYTOLOGIST * Conrad Dumont MD - 07/08/2022 10:06 AM CST Images from the original note were not included. Internal Medicine/Rehabilitation Service Patient: Juvenal Daigle Date of : 1970 Admission Date: (06/29/2022) Vitals With Comments 07/08/2022 0442 07/07/2022 1957 07/07/2022 1500 07/07/2022 0512 BP: 131/70 153/70 161/72 128/74 nurse informed Pulse: 65 70 74 62 Resp: Temp: 98.3 ??F (36.8 ??C) 99.1 ??F (37.3 ??C) 98.1 ??F (36.7 ??C) 98 ??F (36.7 ??C) Temp src: Oral Oral Oral Oral SpO2: 97 % 94 % 98 % 93 % DIET DIABETIC 2GM Sodium (Low), Full Code BIPAP settings. Timeline (including subjective): 07/08/2022- Pt is acceptable and appropriate for d/c. Pt has made global functional and clinical gains. Pleased with course. Full medication recon has occurred. Disposition per PMR MD. Appreciate nephrology following along. Complex patient to have direct follow up as outpt. 07/07/22- Patient is improving daily and on pleased to see that he is participating more in therapies as his orthostasis is resolving. Continue to monitor his dialysate with nephrology and the lead. His vital signs are acceptable, afebrile, positive bowel movement was noted yesterday. He continues to run his own insulin via his pump and he has labile blood glucoses noted. Labs in the morning as we continue to optimize medically to promote functional success. Patient with dry cracked skin and patient is needing emollient skin care. Full medication reconciliation has occurred. Discussed care with rehab team and bedside RN and PMR MD. Complex care continues. 07/06/22- Patient was some labile blood pressures ongoing. He stated he was slightly dizzy early this morning with therapies however today when found in the gym he is able to stand and ambulate without any profound changes. His blood pressure sitting is ideal and we will continue to follow his ongoing gains in the rehab process. Appreciate nephrology changing his PD dialysate as more volume is being offered back to the patient. Continue to follow his medication regime as he was on very potent antihypertensives and all have them have been stopped. We will continue to offer ongoing medical supervision and follow his BGL's as directed. Patient continues to offer his own insulin via his pump and education towards the dosing continues. 07/05/22- Patient with improved stamina this morning. He is less orthostatic this a.m. We will continue to change and rearrange his medications based on his symptoms. Continue current regime at current dosing. Nephrology actually has intervene as well and has changed dialysate accommodate his needs. Pleased with current progress. P.o. intakes improved, last bowel movement noted was 07/03, labs have been reviewed and discussed. Patient states that he needs refill on his glucose pump every 3 to 4days. 07/04/2022- Pt with ongoing PD HS. Pt with soft BPs and will d/c clonidine patch and decrease BB. Pt with ongoing BGL mx via pump. Management of vital signs ongoing and significant. Will assess dailyin order to observe improvements. Patient is motivated to get better and is making gains each day. Patient poses reasonable probability for potential of complications. Will continue to optimize. Labsreviewed. Continue to offer elyte derangement mx. 07/02/22- Patient states he feels better. He thinks his pain medicine improves his overall pain perception versus the muscle relaxant. Will increase his muscle relaxant and follow outcomes. Patient states that he feels better as his BPs are slightly higher than previous as he was feeling markedly dizzy with any type of activity. T-max overnight was 99 ??F. PD management continues. Zmpvq-pd-zhao glucoses are elevated patient is following endocrine's protocol. Labs tomorrow. complex care continues. Appreciate nephrology following along- continue course 07/01/22- Patient appears improved clinically since admission. His skin tone is improved as well. Ongoing PD management continues per nephrology. T-max overnight was 99.3 and has since resolved to afebrile status, pulse rates ideal, tolerating room air. P.o. intake is improved since admission. Labsthis morning show white blood cell count 3.5, hematocrit 26.9, sodium 131, potassium 3.3, creatinine 9.56, phosphorus of 5.3. Nephrology is following along and continue to follow formal recommendations. Will offer Klor-Con x1 and follow outcomes. Continue to hold his BP meds as the patch is workingand will start to reintroduce multiple medications if necessary in the acute rehab process. Patient's insulin pump is running low and waiting for family to bring in insulin to refill. Continue course. 06/30/22- Patient notes that he was very uncomfortable with sleep last night. He said his whole body hurt . Patient was offered pain regime per PMR MD. Will offer muscle relaxant as likely related to tone and spasm. Patient apparently is running out of his insulin in his insulin pump. Will offer him long-acting and short acting as directed once his insulin pump has stopped. He has at least 12 more hours of long-acting insulin per his report. We will continue sliding scale short acting insulin as his family apparently will bring in his home supply to refill his pump. PD continues and patient should have catheter care at PD exit site with antibiotic. Patient with chest x-ray that shows some form of pneumonia. We will offer a sputum culture induced by respiratory services to send for sample. Patient has been scheduled and tested for multiple COVID tests and have been negative. Ongoing care continues complex management and medical supervision is highly crucial and indicated. 06/29/2022 - Admission to [facility] - (Admission Data below). DAPT on ASA and Plavix. Pt appears ill. Pt with PD cath and DM pump. Discussed care at length with bedside RN and RESPlead. On going aggressive medical mgt continues to optimize pt for continued success in the comprehensive rehab course. Complex needs are noted. Reviewed extensive records from [facility] and daughter says BIPAP settings. 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 Anemia of chronic renal failure, stage 4 (severe) Hyperlipidemia- HCTZ, HTN (hypertension) Diabetes mellitus BEN (obstructive sleep apnea) Gout Congestive heart failure Hypertensive kidney disease with end-stage renal disease ESRD (end stage renal disease) Diabetic peripheral neuropathy Ketoacidosis due to type 1 diabetes mellitus Stage 5 chronic kidney disease Right upper quadrant pain Proliferative diabetic retinopathy associated with type 2 diabetes mellitus Pre-transplant evaluation for kidney transplant History of coronary artery stent placement History of deep vein thrombosis Hypersomnia Gastritis Gastroesophageal reflux disease without esophagitis Dystrophia unguium Dysphagia- ZINC PLATER to assess and follow Cardiogenic shock Anemia in chronic kidney disease Acute on chronic HFrEF (heart failure with reduced ejection fraction) Abnormal cardiovascular stress test Acute hypoxemic respiratory failure DVT PRX: Heparin, SCDS Electrolyte derangement-Bind and Replenish Anemia-Follow H/H. Transfuse when clinically indicated Pain Control- titration throughout acute inpatient rehab process Nausea-Zofran prn Constipation-Bowel Regimen, follow output daily Polypharmacy-Follow. Medications fully reconciled Vitamin deficiency-Supplement Nursing Instructions: Incentive spirometry, I/O's, Vitals every 8 hours, Nutrition and ADLs Record Review: moderate Old medical records, labs, preadmission screening, previous radiology studies. Nutritional support and Blood sugar management - encourage adequate diet, caloric intake, fluid balance Avoid hypoglycemia Medication Profile: Allergies Allergen Reactions Allopurinol Shortness of Breath/Wheezing and Other (See Comments) Shuts my kidneys down per patient. Chlorhexidine Other (See Comments) Skin peels all over and becomes tender Iodinated Contrast Media Rash Ticagrelor Rash Scheduled Medication Profile: Facility-Administered Medications as of 07/08/2022 Medication Dose Frequency Provider Last Rate Last Admin tiZANidine (ZANAFLEX) tablet 2 mg 2 mg every 12 hours Srinivas Jon MD 2 mg at 07/08/22 0559 doxycycline monohydrate (MONODOX) capsule 50 mg 50 mg every 12 hours (2 times daily) Avni Clifford PA 50 mg at 07/08/22 0729 mineral oil-white petrolatum-ceresin (EUCERIN) topical cream daily Jasmin Bradley MD Given at 736 metoprolol tartrate (LOPRESSOR) tablet 12.5 mg 12.5 mg BID Avni Clifford PA 12.5 mg at 729 furosemide (LASIX) tablet 80 mg 80 mg daily Jasmin Bradley MD 80 mg at 07/08/22 0729 [COMPLETED] potassium chloride (KLOR-CON) SR tablet 40 mEq 40 mEq ONE time only Jasmin Bradley MD 40 mEq at 07/03/22 0533 aspirin (ECOTRIN EC) tablet 81 mg 81 mg daily Jasmin Bradley MD 81 mg at 07/08/22 0728 darbepoetin genia (ARANESP) 100 mcg/0.5 mL injection 100 mcg 100 mcg every 7 days Jasmin Bradley MD 100mcg at 07/03/22 1005 [COMPLETED] potassium chloride (KLOR-CON) SR tablet 40 mEq 40 mEq ONE time only Avni Clifford PA 40 mEq at 07/01/22 1100 calcium acetate (CALPHRON) tablet 667 mg 667 mg TID BEFORE meals Avni Clifford PA 667 mg at 07/08/22 0730 peg [id number] 1-0.2-0.2 % ophthalmic solution 1 Drop 1 Drop QID Avni Clifford PA 1 Drop at 07/08/22 07 calcitRIOL (ROCALTROL) capsule 0.25 mcg 0.25 mcg daily Avni Clifford PA 0.25 mcg at 07/08/22 0727 heparin injection 5,000 Units 5,000 Units every 8 hours Avni Clifford PA 5,000 Units at 07/08/22 0500 atorvastatin (LIPITOR) tablet 80 mg 80 mg daily Avni Clifford PA 80 mg at 07/08/22 0728 clopidogreL (PLAVIX) tablet 75 mg 75 mg daily Avni Clifford PA 75 mg at 07/08/22 0728 nitroglycerin (NITROSTAT) tablet 0.4 mg 0.4 mg every 5 minutes PRN Avni Clifford PA isosorbide mononitrate (IMDUR) SR 24 hour tablet 30 mg 30 mg daily Avni Clifford PA 30 mg at 07/08/22 0730 pantoprazole (PROTONIX) tablet 40 mg 40 mg daily Avni Clifford PA 40 mg at 07/08/22 0559 gentamicin (GARAMYCIN) 0.1 % topical ointment daily Avni Clifford PA Given at 07/04/22 0900 naloxone (NARCAN) 0.4 mg/mL injection 0.1 mg 0.1 mg see admin instructions Avni Clifford PA ondansetron (ZOFRAN ODT) tablet 4 mg 4 mg every 6 hours PRN Avni Clifford PA prochlorperazine maleate (COMPAZINE) tablet 10 mg 10 mg every 6 hours PRN Avni Clifford PA albuterol (PROVENTIL,VENTOLIN) 2.5 mg /3 mL (0.083 %) inhalation solution 2.5 mg 2.5 mg resp, every6 hours PRN Avni Clifford PA bisacodyL (DULCOLAX) delayed release tablet 5 mg 5 mg daily PRN Avni Clifford PA bisacodyL (DULCOLAX) rectal suppository 10 mg 10 mg daily PRN Avni Clifford PA aluminum - magnesium - simethicone (MYLANTA) 200-200-20 mg/5 mL oral suspension 30 mL 30 mL every 4hours PRN Avni Clifford PA calcium as carbonate (TUMS) 500 mg (200 mg elemental) chewable tablet 200 mg 200 mg every 4 hours PRN Avni Clifford PA folic acid-Vit B6-Vit B12 (FOLTX) per tablet 1 Tablet 1 Tablet daily Avni Clifford PA 1 Tablet at 07/08/22 0729 dextrose 5% - sodium chloride 0.9% infusion see admin instructions Avni Clifford PA dextrose 50% (D50) syringe 12.5 Gram 12.5 Gram see admin instructions Avni Clifford PA dextrose 50% (D50) syringe 25 Gram 25 Gram see admin instructions Avni Clifford PA glucagon human recombinant (GLUCAGEN) 1 mg/mL injection 1 mg 1 mg see admin instructions Avni Clifford PA dextrose 50% (D50) syringe 12.5 Gram 12.5 Gram see admin instructions Avni Clifford PA dextrose 50% (D50) syringe 25 Gram 25 Gram see admin instructions Avni Clifford PA glucagon human recombinant (GLUCAGEN) 1 mg/mL injection 1 mg 1 mg see admin instructions Avni Clifford PA insulin aspart pump basal (NovoLOG) 100 unit/mL infusion TID Avni Clifford PA 1.7 Units/hr at 07/08/22 0801 insulin lispro (HumaLOG) variable dose injection QID WITH meals and HS Avni Clifford PA 6.6 Units at 07/07/22 1700 colchicine (COLCRYS) tablet 0.6 mg 0.6 mg every 48 hours Avni Clifford PA 0.6 mg at 07/08/22 0728 ezetimibe (ZETIA) tablet 10 mg 10 mg daily Avni Clifford PA 10 mg at 07/08/22 0728 ranolazine ER (RANEXA) SR 12 hour tablet 500 mg 500 mg every 12 hours (2 times daily) Avni Clifford PA 500 mg at 07/08/22 0730 cetirizine (ZyrTEC) tablet 5 mg 5 mg daily PRN Avni Clifford PA 5 mg at 06/30/22 0801 [COMPLETED] New Admission Meds - retrieve upon admission every 4 hours Avni Clifford PA Given at 06/29/22 1600 melatonin tablet 6 mg 6 mg daily BEDTIME Avni Clifford PA 6 mg at 07/07/22 2141 acetaminophen (TYLENOL) tablet 650 mg 650 mg every 6 hours PRN Srinivas Jon MD 650 mg at 06/30/22 0801 HYDROcodone-acetaminophen (NORCO) 5-325 mg per tablet 1 Tablet 1 Tablet every 6 hours PRN Srinivas Jon MD 1 Tablet at 07/06/22 2017 Admission Data : CC: Debility/Cardiogenic shock/HTN HPI: Juvenal Daigle is a 51 y.o. male who recently has been admitted to [facility] for comprehensive rehabilitation - multiple complex medical issues will impact medical management throughout the acute inpatient rehabilitation process. Pt has a significant medical history including but not limited to CHF- EF 50%, Afib, HTN, CAD, T1DM, ESRD on PD, HLD, GERD, hyperparathyroidism, DDD, OA, gout, BEN on CPAP, who initially presented to [facility] for n/v, onset three days, with associated chest pain, generalized weakness, chills, ROONEY. Symptoms were relieved with sublingual ntg. His labs were notable for trop 1.0-->1.09-->0.729, BNP 38477. He had a CT CAP showing cholelithiasis and likely PNA. RUQUS showed distended gallbladder with gallstones and gallbladder wall thickening, recommend ed HIDA scan. He was treated with ctx/azithromycin. Pt was started on a heparin gtt. Cath on 06/03 showed previous PCI to proximal and distal right coronary patent, 99% ostial circumflex stenosis as well as 90% circumflex lesion after origin of largest OM branch, mild diffuse disease in LAD which does not appear to be flow limiting. Pt was recommended PCI of left circumflex as optimal treatment. Pt was transfered to [facility] on 06/05. Upon arrival EKG showed sinus bradycardia, 1st deg AV block. ACT was called for substernal chest pressure and hypoxemia, he was placed on BiPAP with improvement in oxygen saturation and transferred to the MICU, where he was placed on AVAPS. CXR showed significantly worsened pulmonary edema. Trop 4797 -> 4266 in the MICU, EKG was unchanged. Pt was started onmero for cholecystitis. He was continued on heparin gtt, started on nitro gtt for BP control and O2was weaned to nasal cannula. Pt underwent complex PCI 06/07, PCI revealed ostial circ lesion of 90%, large OM with 70% narrowing. Patient became hypotensive and hypoxemic requiring levo and epi gtt. The patient was intubated. The left dominant circumflex and OM were then stented. Impella was inserted. A swan liv catheter and L IJ trialysis were also placed. Impella was weaned slowly and removed 06/10. Pressors and vent settings were weaned slowly, and patient was ultimately extubated on 06/20.Passed MBS and was started on a PO DM diet. Pt is tolerating well. Pt is participating in therapy and is able to tolerate 3hrs of therapy a day. Pt has been deemed medically stable and appropriate for comprehensive rehab. PMR MD to have formal referral placed. Past Medical History: Diagnosis Date Amplified musculoskeletal pain Diabetes mellitus Heart attack 04/14/2017 HTN (hypertension) Hyperlipidemia Thromboembolism Past Surgical History: Procedure Laterality Date HX ANGIOPLASTY N/A 04/17/2017 Family history Non contributory Social History Tobacco Use Smoking status: Never Smokeless tobacco: Never Substance Use Topics Alcohol use: No Drug use: No reports that he has never smoked. He has never used smokeless tobacco. He reports that he does not drink alcohol and does not use drugs. Review of Systems: No new fever or chills, worsening cough or colds, chest pain No new abdominal pain, heat or cold intolerance + fatigue, cough, weakness, Objective Data: Vitals With Comments 07/08/2022 0442 07/07/2022 1957 07/07/2022 1500 07/07/2022 0512 BP: 131/70 153/70 161/72 128/74 nurse informed Pulse: 65 70 74 62 Resp: Temp: 98.3 ??F (36.8 ??C) 99.1 ??F (37.3 ??C) 98.1 ??F (36.7 ??C) 98 ??F (36.7 ??C) Temp src: Oral Oral Oral Oral SpO2: 97 % 94 % 98 % 93 % No intake/output data recorded. General alert, awake, no cardiopulmonary distress, weakness Lungs Decreased breath sounds at bases Heart regular rate and rhythm Abdomen soft, non-tender, with bowel sounds, + PD cath, + DM pump Extremities pulses noted, no cyanosis Labs ordered and awaiting results - CBC result (most recent): Lab Results Component Value Date/Time WBC 4.1 07/04/2022 11:09 AM HGB 8.9 (L) 07/04/2022 11:09 AM HCT 28.1 (L) 07/04/2022 11:09 AM PLT 323 07/04/2022 11:09 AM MCV 94.9 07/04/2022 11:09 AM BMP result (most recent): Lab Results Component Value Date/Time NA 134 (L) 07/04/2022 11:09 AM K 4.7 07/04/2022 11:09 AM CL 95 (L) 07/04/2022 11:09 AM CO2 24 07/04/2022 11:09 AM CA 9.1 07/04/2022 11:09 AM BUN 49 (H) 07/04/2022 11:09 AM CREAT 8.63 (H) 07/04/2022 11:09 AM GLUCOSE 304 (H) 07/04/2022 11:09 AM ANIONGAP 15 07/04/2022 11:09 AM CMP result (most recent): Lab Results Component Value Date/Time NA 134 (L) 07/04/2022 11:09 AM K 4.7 07/04/2022 11:09 AM CL 95 (L) 07/04/2022 11:09 AM CO2 24 07/04/2022 11:09 AM CA 9.1 07/04/2022 11:09 AM BUN 49 (H) 07/04/2022 11:09 AM CREAT 8.63 (H) 07/04/2022 11:09 AM GLUCOSE 304 (H) 07/04/2022 11:09 AM TOTALPROTEIN 6.3 (L) 07/04/2022 11:09 AM ALBUMIN 3.1 (L) 07/04/2022 11:09 AM BILITOTAL 0.4 07/04/2022 11:09 AM ALKPHOS 107 07/04/2022 11:09 AM AST 48 (H) 07/04/2022 11:09 AM ALT 44 (H) 07/04/2022 11:09 AM ANIONGAP 15 07/04/2022 11:09 AM HEPATIC function panel result (most recent): Lab Results Component Value Date/Time ALT 44 (H) 07/04/2022 11:09 AM AST 48 (H) 07/04/2022 11:09 AM ALKPHOS 107 07/04/2022 11:09 AM Hemoglobin A1C result (most recent): No results found for: HGBA1C, [id number] LIPID panel result (most recent): No results found for: CHOLTOT, HDL, LDLCALC, LDLDIRECT, TRIGLYCERIDE UA results do not (most recent): Lab Results Component Value Date/Time PHUA 5.0 06/30/2022 02:55 PM SGUR 1.024 06/30/2022 02:55 PM URINELEUKOC Negative 06/30/2022 02:55 PM NITRITEUA Negative 06/30/2022 02:55 PM KETONEURINE Negative 06/30/2022 02:55 PM PROTEINUA Negative 06/30/2022 02:55 PM GLUUA 2+ (A) 06/30/2022 02:55 PM BLOODUA Negative 06/30/2022 02:55 PM CULTURE Date Value Ref Range Status 06/30/2022 <10,000 cfu/mL Staphylococcus epidermidis (A) Final Comment: No further workup indicated. No results found for this or any previous visit. Hospitalist Statement: The Internal Medicine team participates in patient care to directly impact the acute rehabilitationprocess. Daily rounds include discussion of I and Os, avoiding hypotension and hypoglycemia. Daily medication review completed. Ongoing efforts to coordinate care, maintain euvolemia, adequate nutrition, electrolyte management, appropriate BP management, overall stability, and management of co-morbidites individually are being dictated by clinical progress. Documentation partially completed using dictation services and EMR. Please excuse any typographicalerrors that may have occurred. LESLY Ayala MD Internal Medicine Director // T CYTOLOGIST * Shawn Silva RN - 07/08/2022 6:13 AM CST Bedside report with transition of care completed. Pt is A&Ox4 and is able to make needs known. Vitals stable, Lung sounds are clear. continent of Bowel and Bladder. LBM 07/06. Medication administration as documented in OCT, administered scheduled night time medication without any difficulty. Hourly rounding was done. All questions and concerns were addressed during this shift. Pt is resting quietly in bed, bed alarm on and call light within reach. Patient has had no falls at this time and is fall risk level/color red Interventions in Place: [x] Bed Alarm [] Clip Chair Alarm [x] Call Light within reach, return demo by patient completed [] Handoff patient when returning him/her to room [] Wheelchair/Walker out of reach [x] Low Bed [] Mats in Place [x] Fall Risk Magnet on Door [x] Fall Risk Magnet on Schedule Board [x] Fall Risk Armband on Patient [] Sitter [] Other If patient is red fall risk: [x] Patient will not be left alone in bathroom [] Self-Releasing Belt (a one time order is required) [] Patient demonstrated ability to release wheelchair alarmed seatbelt. [] Observation Room Patient Education on Medications Education provided Re: Juvenal Daigle This education was provided to the patient Name of medication(s): Per MAR The education included the following: How to identify their medication, Administering their medication, Understanding the side effects oftheir medication Shawn Silva RN T CYTOLOGIST * Filomena Sibley RN - 07/07/2022 7:47 PM CST Patient alert and oriented, timeout completed and consent given for CCPD prior to connection. CCPD Connected at 19:30. Dressing changed per protocol no signs and symptoms of infection on exit site. Report given to primary nurse,CCPD approximate end time is 06:00 next morning. T CYTOLOGIST * Jasmin Bradley MD - 07/07/2022 5:00 PM CST RENAL Blood glucose is high because he forgot to attach his pump during therapy. He feels well without dizzy or lightheadedness. No edema or shortness of breath. He will be discharged to home tomorrow. He satisfies for his therapy here. Vitals: Vitals: 07/06/22202007/07/22 0512 07/07/22 1500 07/07/221956 BP: (!) 148/77 128/74 (!) 161/72 (!) 153/70 BP Location: Right arm Right arm Right arm Patient Position (BP): Supine Sitting Supine Pulse: 64 62 74 70 Resp: Temp: 98 ??F (36.7 ??C) 98.1 ??F (36.7 ??C) 99.1 ??F (37.3 ??C) TempSrc: Oral Oral Oral SpO2: 93% 98% 94% Weight: Height: I&O: Intake/Output Summary (Last 24 hours) at 07/07/2022 2303 Last data filed at 07/07/2022 1920 Gross per 24 hour Intake 90939 ml Output 1069 ml Net 56973 ml Examination: RRR, CTA Soft, NT , ND BS+ No edema, PD cath exit site clean and dry Skin warm and dry Labs: Lab Results Component Value Date HGB 8.9 (L) 07/04/2022 , Lab Results Component Value Date WBC 4.1 07/04/2022 , Lab Results Component Value Date PLT 323 07/04/2022 , Lab Results Component Value Date NA 134 (L) 07/04/2022 K 4.7 07/04/2022 CL 95 (L) 07/04/2022 CO2 24 07/04/2022 CA 9.1 07/04/2022 BUN 49 (H) 07/04/2022 CREAT 8.63 (H) 07/04/2022 GLUCOSE 304 (H) 07/04/2022 ANIONGAP 15 07/04/2022 , No results found for: IRON, TIBC, FERRITIN, Lab Results Component Value Date [id number] 1,178 06/30/2022 , No results found for: FOLATE, FOLATERBC, Lab Results Component Value Date CA 9.1 07/04/2022 PO4 5.3 (H) 07/01/2022 , Lab Results Component Value Date CREAT 8.63 (H) 07/04/2022 GFR 7 (L) 07/04/2022 , No results found for: RPR, RPRTITER, No results found for: CHOLTOT, HDL, LDLCALC, LDLDIRECT, TRIGLYCERIDE, Lab Results Component Value Date CRP 5.0 (H) 07/04/2022 , Lab Results Component Value Date HEPBSAG Non-reactive 06/30/2022 , Assessment/Plan: Patient Active Hospital Problem List: ESRD on CCPD daily --CCPD use 1.5% and 25% half and half Dianeal with 2.5L dwelling volume. 5 exchange for total 10.5 hrs, with no last refill because Bianka has no purple bag --Gentamicin cream and dressing change to PD catheter sites --DC KCl --Avoid hypotension --Avoid all nephrotoxins --He will go back to his home CCPD regimen and follow his primary manifold operator after discharge HLD, CAD, AMI, Acute on chronic HFrEF (heart failure with reduced ejection fraction), cardiogenic shock, s/p stenting< A Fib --Lipitor --ASA --Plavix --Lasix 80 mg decreased to daily --Imdur 30 mg qd --Metoprolol 25 mg bid -- Ranexa 500 mg bid Anemia of chronic renal failure --Keep Fe% > 30% --Nephrocaps --Aranesp --Transfusion as needed if hemoglobin less than 8 Chronic 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 --Short-term colchicine need to be renal dose Hyperparathyroidism, renal osteodystrophy --Vitamin D --Phosphorus binder Renvela Acute hypoxemic respiratory failure, cardiogenic shock pneumonia --Abx --Bronchi dilator --Lasix Gastroesophageal reflux disease without esophagitis (04/24/2018) --Protonix DVT Prophlaxis - Heparin Current Planned Disposition - home Plan discussed with patient; questions answered; patient agrees with current plan. Current Code Status -Full Code Thank you for inviting me to participate the care of this patient, will follow up closely with you. JASMIN BRADLEY MD [facility] Office [phone] T CYTOLOGIST * Girish Arreola - 07/07/2022 3:50 PM CST When I walked into Juvenal's room he was sitting there looking a little sad. He told me he been through heart surgery and is starting to get stronger. He is a dad who raised 3 kids after his walked out on him many years ago and left their little boys cloths out on the driveway. Juvenal wants nothing to do with her in his life. Juvenal has multiple medical issues including dialysis. He told me he almost while under taking heart surgery. He feels he is blessed to still be here for his kids. He said he is supposed to possibly go home this Monday. He thanked me for stopping by to visit with him and he appreciated the prayers being said for him and for his family. Chaplain Bernabe Arreola Sap Consultant II Extension:[phone] T CYTOLOGIST * Conrad Dumont MD - 07/07/2022 11:45 AM CST Images from the original note were not included. Internal Medicine/Rehabilitation Service Patient: Juvenal Daigle Date of : 1970 Admission Date: (06/29/2022) Vitals With Comments 07/07/2022 0512 07/06/2022202007/06/2022 1942 07/06/2022 1500 BP: 128/74 148/77 148/77 127/68 Pulse: 62 64 64 68 Resp: 18 -- 18 -- Temp: 98 ??F (36.7 ??C) -- 99 ??F (37.2 ??C) 98.4 ??F (36.9 ??C) Temp src: Oral -- Oral Oral SpO2: 93 % -- 98 % -- DIET DIABETIC 2GM Sodium (Low), Full Code BIPAP settings. Timeline (including subjective): 07/07/22- Patient is improving daily and on pleased to see that he is participating more in therapies as his orthostasis is resolving. Continue to monitor his dialysate with nephrology and the lead. His vital signs are acceptable, afebrile, positive bowel movement was noted yesterday. He continues to run his own insulin via his pump and he has labile blood glucoses noted. Labs in the morning as we continue to optimize medically to promote functional success. Patient with dry cracked skin and patient is needing emollient skin care. Full medication reconciliation has occurred. Discussed care with rehab team and bedside RN and PMR MD. Complex care continues. 07/06/22- Patient was some labile blood pressures ongoing. He stated he was slightly dizzy early this morning with therapies however today when found in the gym he is able to stand and ambulate without any profound changes. His blood pressure sitting is ideal and we will continue to follow his ongoing gains in the rehab process. Appreciate nephrology changing his PD dialysate as more volume is being offered back to the patient. Continue to follow his medication regime as he was on very potent antihypertensives and all have them have been stopped. We will continue to offer ongoing medical supervision and follow his BGL's as directed. Patient continues to offer his own insulin via his pump and education towards the dosing continues. 07/05/22- Patient with improved stamina this morning. He is less orthostatic this a.m. We will continue to change and rearrange his medications based on his symptoms. Continue current regime at current dosing. Nephrology actually has intervene as well and has changed dialysate accommodate his needs. Pleased with current progress. P.o. intakes improved, last bowel movement noted was 07/03, labs have been reviewed and discussed. Patient states that he needs refill on his glucose pump every 3 to 4days. 07/04/2022- Pt with ongoing PD HS. Pt with soft BPs and will d/c clonidine patch and decrease BB. Pt with ongoing BGL mx via pump. Management of vital signs ongoing and significant. Will assess dailyin order to observe improvements. Patient is motivated to get better and is making gains each day. Patient poses reasonable probability for potential of complications. Will continue to optimize. Labsreviewed. Continue to offer elyte derangement mx. 07/02/22- Patient states he feels better. He thinks his pain medicine improves his overall pain perception versus the muscle relaxant. Will increase his muscle relaxant and follow outcomes. Patient states that he feels better as his BPs are slightly higher than previous as he was feeling markedly dizzy with any type of activity. T-max overnight was 99 ??F. PD management continues. Ypxwq-rp-mlon glucoses are elevated patient is following endocrine's protocol. Labs tomorrow. complex care continues. Appreciate nephrology following along- continue course 07/01/22- Patient appears improved clinically since admission. His skin tone is improved as well. Ongoing PD management continues per nephrology. T-max overnight was 99.3 and has since resolved to afebrile status, pulse rates ideal, tolerating room air. P.o. intake is improved since admission. Labsthis morning show white blood cell count 3.5, hematocrit 26.9, sodium 131, potassium 3.3, creatinine 9.56, phosphorus of 5.3. Nephrology is following along and continue to follow formal recommendations. Will offer Klor-Con x1 and follow outcomes. Continue to hold his BP meds as the patch is workingand will start to reintroduce multiple medications if necessary in the acute rehab process. Patient's insulin pump is running low and waiting for family to bring in insulin to refill. Continue course. 06/30/22- Patient notes that he was very uncomfortable with sleep last night. He said his whole body hurt . Patient was offered pain regime per PMR MD. Will offer muscle relaxant as likely related to tone and spasm. Patient apparently is running out of his insulin in his insulin pump. Will offer him long-acting and short acting as directed once his insulin pump has stopped. He has at least 12 more hours of long-acting insulin per his report. We will continue sliding scale short acting insulin as his family apparently will bring in his home supply to refill his pump. PD continues and patient should have catheter care at PD exit site with antibiotic. Patient with chest x-ray that shows some form of pneumonia. We will offer a sputum culture induced by respiratory services to send for sample. Patient has been scheduled and tested for multiple COVID tests and have been negative. Ongoing care continues complex management and medical supervision is highly crucial and indicated. 06/29/2022 - Admission to [facility] - (Admission Data below). DAPT on ASA and Plavix. Pt appears ill. Pt with PD cath and DM pump. Discussed care at length with bedside RN and RESPlead. On going aggressive medical mgt continues to optimize pt for continued success in the comprehensive rehab course. Complex needs are noted. Reviewed extensive records from [facility] and daughter says BIPAP settings. 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 Anemia of chronic renal failure, stage 4 (severe) Hyperlipidemia- HCTZ, HTN (hypertension) Diabetes mellitus BEN (obstructive sleep apnea) Gout Congestive heart failure Hypertensive kidney disease with end-stage renal disease ESRD (end stage renal disease) Diabetic peripheral neuropathy Ketoacidosis due to type 1 diabetes mellitus Stage 5 chronic kidney disease Right upper quadrant pain Proliferative diabetic retinopathy associated with type 2 diabetes mellitus Pre-transplant evaluation for kidney transplant History of coronary artery stent placement History of deep vein thrombosis Hypersomnia Gastritis Gastroesophageal reflux disease without esophagitis Dystrophia unguium Dysphagia- ZINC PLATER to assess and follow Cardiogenic shock Anemia in chronic kidney disease Acute on chronic HFrEF (heart failure with reduced ejection fraction) Abnormal cardiovascular stress test Acute hypoxemic respiratory failure DVT PRX: Heparin, SCDS Electrolyte derangement-Bind and Replenish Anemia-Follow H/H. Transfuse when clinically indicated Pain Control- titration throughout acute inpatient rehab process Nausea-Zofran prn Constipation-Bowel Regimen, follow output daily Polypharmacy-Follow. Medications fully reconciled Vitamin deficiency-Supplement Nursing Instructions: Incentive spirometry, I/O's, Vitals every 8 hours, Nutrition and ADLs Record Review: moderate Old medical records, labs, preadmission screening, previous radiology studies. Nutritional support and Blood sugar management - encourage adequate diet, caloric intake, fluid balance Avoid hypoglycemia Medication Profile: Allergies Allergen Reactions Allopurinol Shortness of Breath/Wheezing and Other (See Comments) Shuts my kidneys down per patient. Chlorhexidine Other (See Comments) Skin peels all over and becomes tender Iodinated Contrast Media Rash Ticagrelor Rash Scheduled Medication Profile: Facility-Administered Medications as of 07/07/2022 Medication Dose Frequency Provider Last Rate Last Admin tiZANidine (ZANAFLEX) tablet 2 mg 2 mg every 12 hours Srinivas Jon MD mineral oil-white petrolatum-ceresin (EUCERIN) topical cream daily Jasmin Bradley MD Given at metoprolol tartrate (LOPRESSOR) tablet 12.5 mg 12.5 mg BID Avni Clifford PA 12.5 mg at furosemide (LASIX) tablet 80 mg 80 mg daily Jasmin Bradley MD 80 mg at 07/07/22 0842 [COMPLETED] potassium chloride (KLOR-CON) SR tablet 40 mEq 40 mEq ONE time only Jasmin Bradley MD 40 mEq at 07/03/22 0533 aspirin (ECOTRIN EC) tablet 81 mg 81 mg daily Jasmin Bradley MD 81 mg at 07/07/22 0842 darbepoetin genia (ARANESP) 100 mcg/0.5 mL injection 100 mcg 100 mcg every 7 days Jasmin Bradley MD 100mcg at 07/03/22 1005 [COMPLETED] potassium chloride (KLOR-CON) SR tablet 40 mEq 40 mEq ONE time only Avni Clifford PA 40 mEq at 07/01/22 1100 calcium acetate (CALPHRON) tablet 667 mg 667 mg TID BEFORE meals Avni Clifford PA 667 mg at 07/07/22 0842 peg [id number] 1-0.2-0.2 % ophthalmic solution 1 Drop 1 Drop QID Avni Clifford PA 1 Drop at 07/07/22 0844 calcitRIOL (ROCALTROL) capsule 0.25 mcg 0.25 mcg daily Avni Clifford PA 0.25 mcg at 07/07/22 0843 heparin injection 5,000 Units 5,000 Units every 8 hours Avni Clifford PA 5,000 Units at 07/07/22 0601 atorvastatin (LIPITOR) tablet 80 mg 80 mg daily Avni Clifford PA 80 mg at 07/07/22 0843 clopidogreL (PLAVIX) tablet 75 mg 75 mg daily Avni Clifford PA 75 mg at 07/07/22 0843 nitroglycerin (NITROSTAT) tablet 0.4 mg 0.4 mg every 5 minutes PRN Avni Clifford PA isosorbide mononitrate (IMDUR) SR 24 hour tablet 30 mg 30 mg daily Avni Clifford PA 30 mg at 07/07/22 0843 pantoprazole (PROTONIX) tablet 40 mg 40 mg daily Avni Clifford PA 40 mg at 07/07/22 0600 gentamicin (GARAMYCIN) 0.1 % topical ointment daily Avni Clifford PA Given at 07/04/22 0900 naloxone (NARCAN) 0.4 mg/mL injection 0.1 mg 0.1 mg see admin instructions Avni Clifford PA ondansetron (ZOFRAN ODT) tablet 4 mg 4 mg every 6 hours PRN Avni Clifford PA prochlorperazine maleate (COMPAZINE) tablet 10 mg 10 mg every 6 hours PRN Avni Clifford PA albuterol (PROVENTIL,VENTOLIN) 2.5 mg /3 mL (0.083 %) inhalation solution 2.5 mg 2.5 mg resp, every6 hours PRN Avni Clifford PA bisacodyL (DULCOLAX) delayed release tablet 5 mg 5 mg daily PRN Avni Clifford PA bisacodyL (DULCOLAX) rectal suppository 10 mg 10 mg daily PRN Avni Clifford PA aluminum - magnesium - simethicone (MYLANTA) 200-200-20 mg/5 mL oral suspension 30 mL 30 mL every 4hours PRN Avni Clifford PA calcium as carbonate (TUMS) 500 mg (200 mg elemental) chewable tablet 200 mg 200 mg every 4 hours PRN Avni Clifford PA folic acid-Vit B6-Vit B12 (FOLTX) per tablet 1 Tablet 1 Tablet daily Avni Clifford PA 1 Tablet at 07/07/22 0843 dextrose 5% - sodium chloride 0.9% infusion see admin instructions Avni Clifford PA dextrose 50% (D50) syringe 12.5 Gram 12.5 Gram see admin instructions Avni Clifford PA dextrose 50% (D50) syringe 25 Gram 25 Gram see admin instructions Avni Clifford PA glucagon human recombinant (GLUCAGEN) 1 mg/mL injection 1 mg 1 mg see admin instructions Avni Clifford PA dextrose 50% (D50) syringe 12.5 Gram 12.5 Gram see admin instructions Avni Clifford PA dextrose 50% (D50) syringe 25 Gram 25 Gram see admin instructions Avni Clifford PA glucagon human recombinant (GLUCAGEN) 1 mg/mL injection 1 mg 1 mg see admin instructions Avni Clifford PA insulin aspart pump basal (NovoLOG) 100 unit/mL infusion TID Avni Clifford PA 5.8 Units/hr at 07/07/22 0301 insulin lispro (HumaLOG) variable dose injection QID WITH meals and HS Avni Clifford PA 7.2 Units at 07/03/22 1651 colchicine (COLCRYS) tablet 0.6 mg 0.6 mg every 48 hours Avni Clifford PA 0.6 mg at 07/06/22 0735 doxycycline monohydrate (MONODOX) capsule 50 mg 50 mg every 12 hours (2 times daily) Avni Clifford PA 50 mg at 07/07/22 0843 ezetimibe (ZETIA) tablet 10 mg 10 mg daily Avni Clifford PA 10 mg at 07/07/22 0842 ranolazine ER (RANEXA) SR 12 hour tablet 500 mg 500 mg every 12 hours (2 times daily) Avni Clifford PA 500 mg at 07/07/22 0900 cetirizine (ZyrTEC) tablet 5 mg 5 mg daily PRN Avni Clifford PA 5 mg at 06/30/22 0801 [COMPLETED] New Admission Meds - retrieve upon admission every 4 hours Avni Clifford PA Given at 06/29/22 1600 melatonin tablet 6 mg 6 mg daily BEDTIME Avni Clifford PA 6 mg at 07/06/22 2018 acetaminophen (TYLENOL) tablet 650 mg 650 mg every 6 hours PRN Srinivas Jon MD 650 mg at 06/30/22 0801 HYDROcodone-acetaminophen (NORCO) 5-325 mg per tablet 1 Tablet 1 Tablet every 6 hours PRN Srinivas Jon MD 1 Tablet at 07/06/222016 Admission Data : CC: Debility/Cardiogenic shock/HTN HPI: Juvenal Daigle is a 51 y.o. male who recently has been admitted to [facility] for comprehensive rehabilitation - multiple complex medical issues will impact medical management throughout the acute inpatient rehabilitation process. Pt has a significant medical history including but not limited to CHF- EF 50%, Afib, HTN, CAD, T1DM, ESRD on PD, HLD, GERD, hyperparathyroidism, DDD, OA, gout, BEN on CPAP, who initially presented to [facility] for n/v, onset three days, with associated chest pain, generalized weakness, chills, ROONEY. Symptoms were relieved with sublingual ntg. His labs were notable for trop 1.0-->1.09-->0.729, BNP 58263. He had a CT CAP showing cholelithiasis and likely PNA. RUQUS showed distended gallbladder with gallstones and gallbladder wall thickening, recommend ed HIDA scan. He was treated with ctx/azithromycin. Pt was started on a heparin gtt. Cath on 06/03 showed previous PCI to proximal and distal right coronary patent, 99% ostial circumflex stenosis as well as 90% circumflex lesion after origin of largest OM branch, mild diffuse disease in LAD which does not appear to be flow limiting. Pt was recommended PCI of left circumflex as optimal treatment. Pt was transfered to [facility] on 06/05. Upon arrival EKG showed sinus bradycardia, 1st deg AV block. ACT was called for substernal chest pressure and hypoxemia, he was placed on BiPAP with improvement in oxygen saturation and transferred to the MICU, where he was placed on AVAPS. CXR showed significantly worsened pulmonary edema. Trop 4797 -> 4266 in the MICU, EKG was unchanged. Pt was started onmero for cholecystitis. He was continued on heparin gtt, started on nitro gtt for BP control and O2was weaned to nasal cannula. Pt underwent complex PCI 06/07, PCI revealed ostial circ lesion of 90%, large OM with 70% narrowing. Patient became hypotensive and hypoxemic requiring levo and epi gtt. The patient was intubated. The left dominant circumflex and OM were then stented. Impella was inserted. A swan liv catheter and L IJ trialysis were also placed. Impella was weaned slowly and removed 06/10. Pressors and vent settings were weaned slowly, and patient was ultimately extubated on 06/20.Passed MBS and was started on a PO DM diet. Pt is tolerating well. Pt is participating in therapy and is able to tolerate 3hrs of therapy a day. Pt has been deemed medically stable and appropriate for comprehensive rehab. PMR MD to have formal referral placed. Past Medical History: Diagnosis Date Amplified musculoskeletal pain Diabetes mellitus Heart attack 04/14/2017 HTN (hypertension) Hyperlipidemia Thromboembolism Past Surgical History: Procedure Laterality Date HX ANGIOPLASTY N/A 04/17/2017 Family history Non contributory Social History Tobacco Use Smoking status: Never Smokeless tobacco: Never Substance Use Topics Alcohol use: No Drug use: No reports that he has never smoked. He has never used smokeless tobacco. He reports that he does not drink alcohol and does not use drugs. Review of Systems: No new fever or chills, worsening cough or colds, chest pain No new abdominal pain, heat or cold intolerance + fatigue, cough, weakness, Objective Data: Vitals With Comments 07/07/2022 0512 07/06/2022202007/06/2022 1942 07/06/2022 1500 BP: 128/74 148/77 148/77 127/68 Pulse: 62 64 64 68 Resp: 18 -- 18 -- Temp: 98 ??F (36.7 ??C) -- 99 ??F (37.2 ??C) 98.4 ??F (36.9 ??C) Temp src: Oral -- Oral Oral SpO2: 93 % -- 98 % -- 07/07 0700 - 07/07 1859 In: 240 [P.O.:240] Out: - General alert, awake, no cardiopulmonary distress, weakness Lungs Decreased breath sounds at bases Heart regular rate and rhythm Abdomen soft, non-tender, with bowel sounds, + PD cath, + DM pump Extremities pulses noted, no cyanosis Labs ordered and awaiting results - CBC result (most recent): Lab Results Component Value Date/Time WBC 4.1 07/04/2022 11:09 AM HGB 8.9 (L) 07/04/2022 11:09 AM HCT 28.1 (L) 07/04/2022 11:09 AM PLT 323 07/04/2022 11:09 AM MCV 94.9 07/04/2022 11:09 AM BMP result (most recent): Lab Results Component Value Date/Time NA 134 (L) 07/04/2022 11:09 AM K 4.7 07/04/2022 11:09 AM CL 95 (L) 07/04/2022 11:09 AM CO2 24 07/04/2022 11:09 AM CA 9.1 07/04/2022 11:09 AM BUN 49 (H) 07/04/2022 11:09 AM CREAT 8.63 (H) 07/04/2022 11:09 AM GLUCOSE 304 (H) 07/04/2022 11:09 AM ANIONGAP 15 07/04/2022 11:09 AM CMP result (most recent): Lab Results Component Value Date/Time NA 134 (L) 07/04/2022 11:09 AM K 4.7 07/04/2022 11:09 AM CL 95 (L) 07/04/2022 11:09 AM CO2 24 07/04/2022 11:09 AM CA 9.1 07/04/2022 11:09 AM BUN 49 (H) 07/04/2022 11:09 AM CREAT 8.63 (H) 07/04/2022 11:09 AM GLUCOSE 304 (H) 07/04/2022 11:09 AM TOTALPROTEIN 6.3 (L) 07/04/2022 11:09 AM ALBUMIN 3.1 (L) 07/04/2022 11:09 AM BILITOTAL 0.4 07/04/2022 11:09 AM ALKPHOS 107 07/04/2022 11:09 AM AST 48 (H) 07/04/2022 11:09 AM ALT 44 (H) 07/04/2022 11:09 AM ANIONGAP 15 07/04/2022 11:09 AM HEPATIC function panel result (most recent): Lab Results Component Value Date/Time ALT 44 (H) 07/04/2022 11:09 AM AST 48 (H) 07/04/2022 11:09 AM ALKPHOS 107 07/04/2022 11:09 AM Hemoglobin A1C result (most recent): No results found for: HGBA1C, [id number] LIPID panel result (most recent): No results found for: CHOLTOT, HDL, LDLCALC, LDLDIRECT, TRIGLYCERIDE UA results do not (most recent): Lab Results Component Value Date/Time PHUA 5.0 06/30/2022 02:55 PM SGUR 1.024 06/30/2022 02:55 PM URINELEUKOC Negative 06/30/2022 02:55 PM NITRITEUA Negative 06/30/2022 02:55 PM KETONEURINE Negative 06/30/2022 02:55 PM PROTEINUA Negative 06/30/2022 02:55 PM GLUUA 2+ (A) 06/30/2022 02:55 PM BLOODUA Negative 06/30/2022 02:55 PM CULTURE Date Value Ref Range Status 06/30/2022 <10,000 cfu/mL Staphylococcus epidermidis (A) Final Comment: No further workup indicated. No results found for this or any previous visit. Hospitalist Statement: The Internal Medicine team participates in patient care to directly impact the acute rehabilitationprocess. Daily rounds include discussion of I and Os, avoiding hypotension and hypoglycemia. Daily medication review completed. Ongoing efforts to coordinate care, maintain euvolemia, adequate nutrition, electrolyte management, appropriate BP management, overall stability, and management of co-morbidites individually are being dictated by clinical progress. Documentation partially completed using dictation services and EMR. Please excuse any typographicalerrors that may have occurred. LESLY Ayala MD Internal Medicine Director // T CYTOLOGIST * Srinivas Jon MD - 07/07/2022 8:05 AM CST REHAB/PMA&R DAILY PROGRESS NOTE Date: 07/07/2022 Time: 8:05 AM Subjective: Slept, eating ok. Occasional lightheadedness in therapy, improved. IM and renal input appreciated. ESRD on PD. Insulin pump per home regimen. Eucerin for dry skin. Progressing well in therapy, reaching CGA-SBA. Planning dc home on 07/09 with [facility] and supervision. HHC ordered. Pt is aware. Function status and progress towards rehab goals: PT: ambulated 150' with WWR and CGA/SBA. Denies any dizziness/lightheadedness. OT: CGA mainly, min LE drsg and foot wear. ZINC PLATER: min for memory and PS. Goals: progressing well, reaching CGA-SBA; continue to address his medical stability, orthostasis, strengthening, endurance, balance to reach mod I at dc ELOS: 07/09 [facility] PT, OT, ZINC PLATER, RN. Review of System: No fever, nausea/vomiting, chest pain, or shortness of breath. Exam: BP 128/74 (BP Location: Right arm, Patient Position (BP): Supine) Pulse 62 Temp 98 ??F (36.7 ??C) (Oral) Resp 18 Ht 5' 10 (1.778 m) Wt 117.5 kg (259 lb) SpO2 93% BMI 37.16 kg/m?? General appearance: alert, in no distress Skin/sores/incisions: No rashes or lesions; Musculoskeletal: LE edema Neurologic: Mental status: Alert, awake, responsive, oriented to time and place and person, attentive. Language: Fluent, good naming and good repetition. Cranial nerves: Pupils are normal reactive to light EOM: full, normal visual charles No ptosis Normal facial sensation and no facial weakness Normal hearing Muscle strength: 5/5 in UE/LExts proximally and distally bilaterally. Psych: affect is euthymic. Current Medications: Facility-Administered Medications as of 07/07/2022 Medication Dose Frequency Provider Last Rate Last Admin mineral oil-white petrolatum-ceresin (EUCERIN) topical cream daily Jasmin Bradley MD Given at metoprolol tartrate (LOPRESSOR) tablet 12.5 mg 12.5 mg BID Avni Clifford PA 12.5 mg at 2 furosemide (LASIX) tablet 80 mg 80 mg daily Jasmin Bradley MD 80 mg at 07/06/22 0736 tiZANidine (ZANAFLEX) tablet 4 mg 4 mg every 8 hours Avni Clifford PA 4 mg at 07/07/22 0601 [COMPLETED] potassium chloride (KLOR-CON) SR tablet 40 mEq 40 mEq ONE time only Jasmin Bradley MD 40 mEq at 07/03/22 0533 aspirin (ECOTRIN EC) tablet 81 mg 81 mg daily Jasmin Bradley MD 81 mg at 07/06/22 0736 darbepoetin genia (ARANESP) 100 mcg/0.5 mL injection 100 mcg 100 mcg every 7 days Jasmin Bradley MD 100mcg at 07/03/22 1005 [COMPLETED] potassium chloride (KLOR-CON) SR tablet 40 mEq 40 mEq ONE time only Avni Clifford PA 40 mEq at 07/01/22 1100 calcium acetate (CALPHRON) tablet 667 mg 667 mg TID BEFORE meals Avni Clifford PA 667 mg at 07/06/22 1706 peg [id number] 1-0.2-0.2 % ophthalmic solution 1 Drop 1 Drop QID Avni Clifford PA 1 Drop at 07/06/222028 calcitRIOL (ROCALTROL) capsule 0.25 mcg 0.25 mcg daily Avni Clifford PA 0.25 mcg at 07/06/22 0735 heparin injection 5,000 Units 5,000 Units every 8 hours Avni Clifford PA 5,000 Units at 07/07/22 0601 atorvastatin (LIPITOR) tablet 80 mg 80 mg daily Avni Clifford PA 80 mg at 07/06/22 0737 clopidogreL (PLAVIX) tablet 75 mg 75 mg daily Avni Clifford PA 75 mg at 07/06/22 0735 nitroglycerin (NITROSTAT) tablet 0.4 mg 0.4 mg every 5 minutes PRN Avni Clifford PA isosorbide mononitrate (IMDUR) SR 24 hour tablet 30 mg 30 mg daily Avni Clifford PA 30 mg at 07/06/22 0734 pantoprazole (PROTONIX) tablet 40 mg 40 mg daily Avni Clifford PA 40 mg at 07/07/22 0600 gentamicin (GARAMYCIN) 0.1 % topical ointment daily Avni Clifford PA Given at 07/04/22 0900 naloxone (NARCAN) 0.4 mg/mL injection 0.1 mg 0.1 mg see admin instructions Avni Clifford PA ondansetron (ZOFRAN ODT) tablet 4 mg 4 mg every 6 hours PRN Avni Clifford PA prochlorperazine maleate (COMPAZINE) tablet 10 mg 10 mg every 6 hours PRN Avni Clifford PA albuterol (PROVENTIL,VENTOLIN) 2.5 mg /3 mL (0.083 %) inhalation solution 2.5 mg 2.5 mg resp, every6 hours PRN Avni Clifford PA bisacodyL (DULCOLAX) delayed release tablet 5 mg 5 mg daily PRN Avni Clifford PA bisacodyL (DULCOLAX) rectal suppository 10 mg 10 mg daily PRN Avni Clifford PA aluminum - magnesium - simethicone (MYLANTA) 200-200-20 mg/5 mL oral suspension 30 mL 30 mL every 4hours PRN Avni Clifford PA calcium as carbonate (TUMS) 500 mg (200 mg elemental) chewable tablet 200 mg 200 mg every 4 hours PRN Avni Clifford PA folic acid-Vit B6-Vit B12 (FOLTX) per tablet 1 Tablet 1 Tablet daily Avni Clifford PA 1 Tablet at 07/06/22 0736 dextrose 5% - sodium chloride 0.9% infusion see admin instructions Avni Clifford PA dextrose 50% (D50) syringe 12.5 Gram 12.5 Gram see admin instructions Avni Clifford PA dextrose 50% (D50) syringe 25 Gram 25 Gram see admin instructions Avni Clifford PA glucagon human recombinant (GLUCAGEN) 1 mg/mL injection 1 mg 1 mg see admin instructions Avni Clifford PA dextrose 50% (D50) syringe 12.5 Gram 12.5 Gram see admin instructions Avni Clifford PA dextrose 50% (D50) syringe 25 Gram 25 Gram see admin instructions Avni Clifford PA glucagon human recombinant (GLUCAGEN) 1 mg/mL injection 1 mg 1 mg see admin instructions Avni Clifford PA insulin aspart pump basal (NovoLOG) 100 unit/mL infusion TID Avni Clifford PA 5.8 Units/hr at 07/07/22 0301 insulin lispro (HumaLOG) variable dose injection QID WITH meals and HS Avni Clifford PA 7.2 Units at 07/03/22 1651 colchicine (COLCRYS) tablet 0.6 mg 0.6 mg every 48 hours Avni Clifford PA 0.6 mg at 07/06/22 0735 doxycycline monohydrate (MONODOX) capsule 50 mg 50 mg every 12 hours (2 times daily) Avni Clifford PA 50 mg at 07/06/222017 ezetimibe (ZETIA) tablet 10 mg 10 mg daily Avni Clifford PA 10 mg at 07/06/22 0737 ranolazine ER (RANEXA) SR 12 hour tablet 500 mg 500 mg every 12 hours (2 times daily) Avni Clifford PA 500 mg at 07/06/22 2019 cetirizine (ZyrTEC) tablet 5 mg 5 mg daily PRN Avni Clifford PA 5 mg at 06/30/22 0801 [COMPLETED] New Admission Meds - retrieve upon admission every 4 hours Avni Clifford PA Given at 06/29/22 1600 melatonin tablet 6 mg 6 mg daily BEDTIME Avni Clifford PA 6 mg at 07/06/222017 acetaminophen (TYLENOL) tablet 650 mg 650 mg every 6 hours PRN Srinivas Jon MD 650 mg at 06/30/22 0801 HYDROcodone-acetaminophen (NORCO) 5-325 mg per tablet 1 Tablet 1 Tablet every 6 hours PRN Srinivas Jon MD 1 Tablet at 07/06/222016 Data: UA result (most recent): Lab Results Component Value Date/Time PHUA 5.0 06/30/2022 02:55 PM SGUR 1.024 06/30/2022 02:55 PM URINELEUKOC Negative 06/30/2022 02:55 PM NITRITEUA Negative 06/30/2022 02:55 PM KETONEURINE Negative 06/30/2022 02:55 PM PROTEINUA Negative 06/30/2022 02:55 PM GLUUA 2+ (A) 06/30/2022 02:55 PM BLOODUA Negative 06/30/2022 02:55 PM Urine Random Protein result: No results found for: PROTEINUR CBC result (most recent): Lab Results Component Value Date/Time WBC 4.1 07/04/2022 11:09 AM HGB 8.9 (L) 07/04/2022 11:09 AM HCT 28.1 (L) 07/04/2022 11:09 AM PLT 323 07/04/2022 11:09 AM MCV 94.9 07/04/2022 11:09 AM BMP result (most recent): Lab Results Component Value Date/Time NA 134 (L) 07/04/2022 11:09 AM K 4.7 07/04/2022 11:09 AM CL 95 (L) 07/04/2022 11:09 AM CO2 24 07/04/2022 11:09 AM CA 9.1 07/04/2022 11:09 AM BUN 49 (H) 07/04/2022 11:09 AM CREAT 8.63 (H) 07/04/2022 11:09 AM GLUCOSE 304 (H) 07/04/2022 11:09 AM ANIONGAP 15 07/04/2022 11:09 AM CMP result (most recent): Lab Results Component Value Date/Time NA 134 (L) 07/04/2022 11:09 AM K 4.7 07/04/2022 11:09 AM CL 95 (L) 07/04/2022 11:09 AM CO2 24 07/04/2022 11:09 AM CA 9.1 07/04/2022 11:09 AM BUN 49 (H) 07/04/2022 11:09 AM CREAT 8.63 (H) 07/04/2022 11:09 AM GLUCOSE 304 (H) 07/04/2022 11:09 AM TOTALPROTEIN 6.3 (L) 07/04/2022 11:09 AM ALBUMIN 3.1 (L) 07/04/2022 11:09 AM BILITOTAL 0.4 07/04/2022 11:09 AM ALKPHOS 107 07/04/2022 11:09 AM AST 48 (H) 07/04/2022 11:09 AM ALT 44 (H) 07/04/2022 11:09 AM ANIONGAP 15 07/04/2022 11:09 AM LIPID panel result (most recent): No results found for: CHOLTOT, HDL, LDLCALC, LDLDIRECT, TRIGLYCERIDE GLUCOSE result (most recent): Lab Results Component Value Date/Time GLUCOSE 304 (H) 07/04/2022 11:09 AM Coagulation result (most recent): No results found for: PT, INR, APTT Assessment and Plan: Debility: Continue inpatient comprehensive interdisciplinary rehabilitation to address strengthening, mobility skills, self care, cognitive functioning, speech, communication and swallowing needs. The patient continues to require the interdisciplinary team approach and 24 hour monitoring. CAD, s/p NSTEMI, s/p PCI. Cont asa, metoprolol, statin. Cardiogenic shock Afib: metoprolol, DAPT Acute on chronic systolic CHF: EF 65%: cont lasix, metoprolol, losartan, imdur ESRD, on PD: renal consulted DM: insulin pump at home, resumed per home settings HTN: metoprolol, lasix, clonidine, hydralazine AHRF: pulm toilet, BD prn Dysphagia: resolved, passed MBS 06/21 Severe obsity, BMI 37: encourage weight cessation. DVT Prevention: heparin Pain Management: apap, norco prn Stress ulcer prophylaxis: PPI Bladder management: monitor voiding pattern, monitor bladder scans/PVRs, straight cath per parameters. Bowel management: monitor stooling pattern, continue bowel program adjust laxatives as needed. Code: full F/u: PCP, Aditya Lara MD [phone] Cardiology Endocrinology Srinivas Jon MD T CYTOLOGIST * Kamryn Browning RN - 07/06/2022 10:40 PM CST Patient has had no falls at this time and is fall risk level/color yellow Interventions in Place: [x] Bed Alarm [] Clip Chair Alarm [] Self-Releasing Belt (a one time order is required) [x] Call Light within reach, return demo by patient completed [] Handoff patient when returning him/her to room [] Wheelchair/Walker out of reach [x] Low Bed [] Mats in Place [] Observation Room [x] Fall Risk Magnet on Door [x] Fall Risk Magnet on Schedule Board [x] Fall Risk Armband on Patient [] Sitter [] Other If patient is a red fall risk, do not leave alone in the bathroom. Patient Education on Medications Education provided Re: Juvenal Daigle This education was provided to the patient Name of medication: all evening meds The education included the following: How to identify their medication, Administering their medication, Understanding the side effects oftheir medication Kamryn Browning RN A,O X 4. Had verbalized he has a good day. Insulin pump R upper abdomen,peritoneal line site left lower abdomen. Dry skin,bruised abdomen. Took all meds at HS including pain med. Hooked to peritonealdialysis by F[facility] around 7PM or so. Hourly rounding,uses call light and bed alarm.Needs attended t o. T CYTOLOGIST * Filomena Sibley RN - 07/06/2022 7:35 PM CST Patient alert and oriented, timeout completed and consent given for CCPD prior to connection. CCPD Connected at 19:15. Dressing changed per protocol no signs and symptoms of infection on exit site. Report given to primary nurse,[facility] approximate end time is 05:40 next morning. T CYTOLOGIST * Leonela Lantigua RN - 07/06/2022 6:14 PM CST Bedside report completed. Pt resting in bed. Pt was disconnected from PD this am per evening nurse.Pt participated in therapy and sat up in recliner all day. No c/o pain. Pt did have 1 episode in therapy where his b/p dropped 30 points and he was symptomatic. Pt did recover from this. Pt gave insulin per pump today. See communication note regarding dosing. T CYTOLOGIST * Jasmin Bradley MD - 07/06/2022 6:00 PM CST RENAL Patient well today without the dizzy or lightheadedness with CCPD changed to 2.5% and 1.5% dianeal half and a half. Lasix dose decreased to daily. Vitals: Vitals: 07/06/22 1000 07/06/22 1500 07/06/22 1942 07/06/222020 BP: 127/68 (!) 148/77 (!) 148/77 BP Location: Right arm Patient Position (BP): Supine Pulse: 68 64 64 Resp: 18 Temp: 98.4 ??F (36.9 ??C) 99 ??F (37.2 ??C) TempSrc: Oral Oral SpO2: 98% Weight: 117.5 kg (259 lb) Height: I&O: Intake/Output Summary (Last 24 hours) at 07/07/2022 0107 Last data filed at 07/06/2022 1910 Gross per 24 hour Intake 480 ml Output 1197 ml Net -717 ml Examination: RRR, CTA Soft, NT , ND BS+ No edema, PD cath exit site clean and dry Skin warm and dry Labs: Lab Results Component Value Date HGB 8.9 (L) 07/04/2022 , Lab Results Component Value Date WBC 4.1 07/04/2022 , Lab Results Component Value Date PLT 323 07/04/2022 , Lab Results Component Value Date NA 134 (L) 07/04/2022 K 4.7 07/04/2022 CL 95 (L) 07/04/2022 CO2 24 07/04/2022 CA 9.1 07/04/2022 BUN 49 (H) 07/04/2022 CREAT 8.63 (H) 07/04/2022 GLUCOSE 304 (H) 07/04/2022 ANIONGAP 15 07/04/2022 , No results found for: IRON, TIBC, FERRITIN, Lab Results Component Value Date BASKEVVN11 1,178 06/30/2022 , No results found for: FOLATE, FOLATERBC, Lab Results Component Value Date CA 9.1 07/04/2022 PO4 5.3 (H) 07/01/2022 , Lab Results Component Value Date CREAT 8.63 (H) 07/04/2022 GFR 7 (L) 07/04/2022 , No results found for: RPR, RPRTITER, No results found for: CHOLTOT, HDL, LDLCALC, LDLDIRECT, TRIGLYCERIDE, Lab Results Component Value Date CRP 5.0 (H) 07/04/2022 , Lab Results Component Value Date HEPBSAG Non-reactive 06/30/2022 , Assessment/Plan: Patient Active Hospital Problem List: ESRD on CCPD daily --CCPD use 1.5% and 25% half and half Dianeal with 2.5L dwelling volume. 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 --Short-term colchicine need to be renal dose Hyperparathyroidism, renal osteodystrophy --Vitamin D --Phosphorus binder Renvela Acute hypoxemic respiratory failure, cardiogenic shock pneumonia --Abx --Bronchi dilator --Lasix Gastroesophageal reflux disease without esophagitis (04/24/2018) --Protonix DVT Prophlaxis - Heparin Current Planned Disposition - home Plan discussed with patient; questions answered; patient agrees with current plan. Current Code Status -Full Code Thank you for inviting me to participate the care of this patient, will follow up closely with you. JASMIN BRADLEY MD [facility] Office [phone] T CYTOLOGIST * Leonela Lantigua RN - 07/06/2022 5:32 PM CST 7:21am BG per our meter this am 80. 3 OJ given. Pt meter 79. At 7:38 BG 100 and pt was eating breakfast. Rate per pump 1.7, pt did not give extra insulin. 12:21 BG per pur meter 251. Pt's meter 224. Pt gave 6.5 units per his pump. Current rate is 0.8/hr. 4:44pm BG per our meter 257, pt meter 231. Pt gave 5.45 units insulin. Current rate 0.8units/hr. T CYTOLOGIST * Conrad Dumont MD - 07/06/2022 2:32 PM CST Images from the original note were not included. Internal Medicine/Rehabilitation Service Patient: Juvenal Daigle Date of : 1970 Admission Date: (06/29/2022) Vitals With Comments 07/06/2022 1000 07/06/2022 0516 07/05/2022201207/05/2022 1937 BP: -- 152/77 178/73 178/73 Pulse: -- 63 66 65 Resp: -- 18 -- 18 Temp: -- 98 ??F (36.7 ??C) -- 99.2 ??F (37.3 ??C) Temp src: -- Oral -- Oral SpO2: -- 96 % -- 93 % Weight: 117.5 kg (259 lb) -- -- -- DIET DIABETIC 2GM Sodium (Low), Full Code BIPAP settings. Timeline (including subjective): 07/06/22- Patient was some labile blood pressures ongoing. He stated he was slightly dizzy early this morning with therapies however today when found in the gym he is able to stand and ambulate without any profound changes. His blood pressure sitting is ideal and we will continue to follow his ongoing gains in the rehab process. Appreciate nephrology changing his PD dialysate as more volume is being offered back to the patient. Continue to follow his medication regime as he was on very potent antihypertensives and all have them have been stopped. We will continue to offer ongoing medical supervision and follow his BGL's as directed. Patient continues to offer his own insulin via his pump and education towards the dosing continues. 07/05/22- Patient with improved stamina this morning. He is less orthostatic this a.m. We will continue to change and rearrange his medications based on his symptoms. Continue current regime at current dosing. Nephrology actually has intervene as well and has changed dialysate accommodate his needs. Pleased with current progress. P.o. intakes improved, last bowel movement noted was 07/03, labs have been reviewed and discussed. Patient states that he needs refill on his glucose pump every 3 to 4days. 07/04/2022- Pt with ongoing PD HS. Pt with soft BPs and will d/c clonidine patch and decrease BB. Pt with ongoing BGL mx via pump. Management of vital signs ongoing and significant. Will assess dailyin order to observe improvements. Patient is motivated to get better and is making gains each day. Patient poses reasonable probability for potential of complications. Will continue to optimize. Labsreviewed. Continue to offer elyte derangement mx. 07/02/22- Patient states he feels better. He thinks his pain medicine improves his overall pain perception versus the muscle relaxant. Will increase his muscle relaxant and follow outcomes. Patient states that he feels better as his BPs are slightly higher than previous as he was feeling markedly dizzy with any type of activity. T-max overnight was 99 ??F. PD management continues. Oroon-nb-aqqg glucoses are elevated patient is following endocrine's protocol. Labs tomorrow. complex care continues. Appreciate nephrology following along- continue course 07/01/22- Patient appears improved clinically since admission. His skin tone is improved as well. Ongoing PD management continues per nephrology. T-max overnight was 99.3 and has since resolved to afebrile status, pulse rates ideal, tolerating room air. P.o. intake is improved since admission. Labsthis morning show white blood cell count 3.5, hematocrit 26.9, sodium 131, potassium 3.3, creatinine 9.56, phosphorus of 5.3. Nephrology is following along and continue to follow formal recommendations. Will offer Klor-Con x1 and follow outcomes. Continue to hold his BP meds as the patch is workingand will start to reintroduce multiple medications if necessary in the acute rehab process. Patient's insulin pump is running low and waiting for family to bring in insulin to refill. Continue course. 06/30/22- Patient notes that he was very uncomfortable with sleep last night. He said his whole body hurt . Patient was offered pain regime per PMR MD. Will offer muscle relaxant as likely related to tone and spasm. Patient apparently is running out of his insulin in his insulin pump. Will offer him long-acting and short acting as directed once his insulin pump has stopped. He has at least 12 more hours of long-acting insulin per his report. We will continue sliding scale short acting insulin as his family apparently will bring in his home supply to refill his pump. PD continues and patient should have catheter care at PD exit site with antibiotic. Patient with chest x-ray that shows some form of pneumonia. We will offer a sputum culture induced by respiratory services to send for sample. Patient has been scheduled and tested for multiple COVID tests and have been negative. Ongoing care continues complex management and medical supervision is highly crucial and indicated. 06/29/2022 - Admission to [facility] - (Admission Data below). DAPT on ASA and Plavix. Pt appears ill. Pt with PD cath and DM pump. Discussed care at length with bedside RN and RESPlead. On going aggressive medical mgt continues to optimize pt for continued success in the comprehensive rehab course. Complex needs are noted. Reviewed extensive records from [facility] and daughter says BIPAP settings. 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 Anemia of chronic renal failure, stage 4 (severe) Hyperlipidemia- HCTZ, HTN (hypertension) Diabetes mellitus BEN (obstructive sleep apnea) Gout Congestive heart failure Hypertensive kidney disease with end-stage renal disease ESRD (end stage renal disease) Diabetic peripheral neuropathy Ketoacidosis due to type 1 diabetes mellitus Stage 5 chronic kidney disease Right upper quadrant pain Proliferative diabetic retinopathy associated with type 2 diabetes mellitus Pre-transplant evaluation for kidney transplant History of coronary artery stent placement History of deep vein thrombosis Hypersomnia Gastritis Gastroesophageal reflux disease without esophagitis Dystrophia unguium Dysphagia- ZINC PLATER to assess and follow Cardiogenic shock Anemia in chronic kidney disease Acute on chronic HFrEF (heart failure with reduced ejection fraction) Abnormal cardiovascular stress test Acute hypoxemic respiratory failure DVT PRX: Heparin, SCDS Electrolyte derangement-Bind and Replenish Anemia-Follow H/H. Transfuse when clinically indicated Pain Control- titration throughout acute inpatient rehab process Nausea-Zofran prn Constipation-Bowel Regimen, follow output daily Polypharmacy-Follow. Medications fully reconciled Vitamin deficiency-Supplement Nursing Instructions: Incentive spirometry, I/O's, Vitals every 8 hours, Nutrition and ADLs Record Review: moderate Old medical records, labs, preadmission screening, previous radiology studies. Nutritional support and Blood sugar management - encourage adequate diet, caloric intake, fluid balance Avoid hypoglycemia Medication Profile: Allergies Allergen Reactions Allopurinol Shortness of Breath/Wheezing and Other (See Comments) Shuts my kidneys down per patient. Chlorhexidine Other (See Comments) Skin peels all over and becomes tender Iodinated Contrast Media Rash Ticagrelor Rash Scheduled Medication Profile: Facility-Administered Medications as of 07/06/2022 Medication Dose Frequency Provider Last Rate Last Admin mineral oil-white petrolatum-ceresin (EUCERIN) topical cream daily Jasmin Bradley MD Given at metoprolol tartrate (LOPRESSOR) tablet 12.5 mg 12.5 mg BID Avni Clifford PA 12.5 mg at 735 furosemide (LASIX) tablet 80 mg 80 mg daily Jasmin Bradley MD 80 mg at 07/06/22 0736 tiZANidine (ZANAFLEX) tablet 4 mg 4 mg every 8 hours Avni Clifford PA 4 mg at 07/06/22 1229 [COMPLETED] potassium chloride (KLOR-CON) SR tablet 40 mEq 40 mEq ONE time only Jasmin Bradley MD 40 mEq at 07/03/22 0533 aspirin (ECOTRIN EC) tablet 81 mg 81 mg daily Jasmin Bradley MD 81 mg at 07/06/22 0736 darbepoetin genia (ARANESP) 100 mcg/0.5 mL injection 100 mcg 100 mcg every 7 days Jasmin Bradley MD 100mcg at 07/03/22 1005 [COMPLETED] potassium chloride (KLOR-CON) SR tablet 40 mEq 40 mEq ONE time only Avni Clifford PA 40 mEq at 07/01/22 1100 calcium acetate (CALPHRON) tablet 667 mg 667 mg TID BEFORE meals Avni Clifford PA 667 mg at 07/06/22 1229 peg [id number] 1-0.2-0.2 % ophthalmic solution 1 Drop 1 Drop QID Avni Clifford PA 1 Drop at 07/06/22 1229 calcitRIOL (ROCALTROL) capsule 0.25 mcg 0.25 mcg daily Avni Clifford PA 0.25 mcg at 07/06/22 0735 heparin injection 5,000 Units 5,000 Units every 8 hours Avni Clifford PA 5,000 Units at 07/06/22 1229 atorvastatin (LIPITOR) tablet 80 mg 80 mg daily Avni Clifford PA 80 mg at 07/06/22 0737 clopidogreL (PLAVIX) tablet 75 mg 75 mg daily Avni Clifford PA 75 mg at 07/06/22 0735 nitroglycerin (NITROSTAT) tablet 0.4 mg 0.4 mg every 5 minutes PRN Avni Clifford PA isosorbide mononitrate (IMDUR) SR 24 hour tablet 30 mg 30 mg daily Avni Clifford PA 30 mg at 07/06/22 0734 pantoprazole (PROTONIX) tablet 40 mg 40 mg daily Avni Clifford PA 40 mg at 07/06/22 0708 gentamicin (GARAMYCIN) 0.1 % topical ointment daily Avni Clifford PA Given at 07/04/22 0900 naloxone (NARCAN) 0.4 mg/mL injection 0.1 mg 0.1 mg see admin instructions Avni Clifford PA ondansetron (ZOFRAN ODT) tablet 4 mg 4 mg every 6 hours PRN Avni Clifford PA prochlorperazine maleate (COMPAZINE) tablet 10 mg 10 mg every 6 hours PRN Avni Clifford PA albuterol (PROVENTIL,VENTOLIN) 2.5 mg /3 mL (0.083 %) inhalation solution 2.5 mg 2.5 mg resp, every6 hours PRN Avni Clifford PA bisacodyL (DULCOLAX) delayed release tablet 5 mg 5 mg daily PRN Avni Clifford PA bisacodyL (DULCOLAX) rectal suppository 10 mg 10 mg daily PRN Avni Clifford PA aluminum - magnesium - simethicone (MYLANTA) 200-200-20 mg/5 mL oral suspension 30 mL 30 mL every 4hours PRN Avni Clifford PA calcium as carbonate (TUMS) 500 mg (200 mg elemental) chewable tablet 200 mg 200 mg every 4 hours PRN Avni Clifford PA folic acid-Vit B6-Vit B12 (FOLTX) per tablet 1 Tablet 1 Tablet daily Avni Clifford PA 1 Tablet at 07/06/22 0736 dextrose 5% - sodium chloride 0.9% infusion see admin instructions Avni Clifford PA dextrose 50% (D50) syringe 12.5 Gram 12.5 Gram see admin instructions Avni Clifford PA dextrose 50% (D50) syringe 25 Gram 25 Gram see admin instructions Avni Clifford PA glucagon human recombinant (GLUCAGEN) 1 mg/mL injection 1 mg 1 mg see admin instructions Avni Clifford PA dextrose 50% (D50) syringe 12.5 Gram 12.5 Gram see admin instructions Avni Clifford PA dextrose 50% (D50) syringe 25 Gram 25 Gram see admin instructions Avni Clifford PA glucagon human recombinant (GLUCAGEN) 1 mg/mL injection 1 mg 1 mg see admin instructions Avni Clifford PA insulin aspart pump basal (NovoLOG) 100 unit/mL infusion TID Avni Clifford PA 1.7 Units/hr at 07/06/22 0801 insulin lispro (HumaLOG) variable dose injection QID WITH meals and HS Avni Clifford PA 7.2 Units at 07/03/22 1651 colchicine (COLCRYS) tablet 0.6 mg 0.6 mg every 48 hours Avni Clifford PA 0.6 mg at 07/06/22 0735 doxycycline monohydrate (MONODOX) capsule 50 mg 50 mg every 12 hours (2 times daily) Avni Clifford PA 50 mg at 07/06/22 0736 ezetimibe (ZETIA) tablet 10 mg 10 mg daily Avni Clifford PA 10 mg at 07/06/22 0737 ranolazine ER (RANEXA) SR 12 hour tablet 500 mg 500 mg every 12 hours (2 times daily) Avni Clifford PA 500 mg at 07/06/22 0736 cetirizine (ZyrTEC) tablet 5 mg 5 mg daily PRN Avni Clifford PA 5 mg at 06/30/22 0801 [COMPLETED] New Admission Meds - retrieve upon admission every 4 hours Avni Clifford PA Given at 06/29/22 1600 melatonin tablet 6 mg 6 mg daily BEDTIME Avni Clifford PA 6 mg at 07/05/222013 acetaminophen (TYLENOL) tablet 650 mg 650 mg every 6 hours PRN Srinivas Jon MD 650 mg at 06/30/22 0801 HYDROcodone-acetaminophen (NORCO) 5-325 mg per tablet 1 Tablet 1 Tablet every 6 hours PRN Srinivsa Jon MD 1 Tablet at 07/05/222012 Admission Data : CC: Debility/Cardiogenic shock/HTN HPI: Juvenal Daigle is a 51 y.o. male who recently has been admitted to [facility] for comprehensive rehabilitation - multiple complex medical issues will impact medical management throughout the acute inpatient rehabilitation process. Pt has a significant medical history including but not limited to CHF- EF 50%, Afib, HTN, CAD, T1DM, ESRD on PD, HLD, GERD, hyperparathyroidism, DDD, OA, gout, BEN on CPAP, who initially presented to [facility] for n/v, onset three days, with associated chest pain, generalized weakness, chills, ROONEY. Symptoms were relieved with sublingual ntg. His labs were notable for trop 1.0-->1.09-->0.729, BNP 74184. He had a CT CAP showing cholelithiasis and likely PNA. RUQUS showed distended gallbladder with gallstones and gallbladder wall thickening, recommend ed HIDA scan. He was treated with ctx/azithromycin. Pt was started on a heparin gtt. Cath on 06/03 showed previous PCI to proximal and distal right coronary patent, 99% ostial circumflex stenosis as well as 90% circumflex lesion after origin of largest OM branch, mild diffuse disease in LAD which does not appear to be flow limiting. Pt was recommended PCI of left circumflex as optimal treatment. Pt was transfered to [facility] on 06/05. Upon arrival EKG showed sinus bradycardia, 1st deg AV block. ACT was called for substernal chest pressure and hypoxemia, he was placed on BiPAP with improvement in oxygen saturation and transferred to the MICU, where he was placed on AVAPS. CXR showed significantly worsened pulmonary edema. Trop 4797 -> 4266 in the MICU, EKG was unchanged. Pt was started onmero for cholecystitis. He was continued on heparin gtt, started on nitro gtt for BP control and O2was weaned to nasal cannula. Pt underwent complex PCI 06/07, PCI revealed ostial circ lesion of 90%, large OM with 70% narrowing. Patient became hypotensive and hypoxemic requiring levo and epi gtt. The patient was intubated. The left dominant circumflex and OM were then stented. Impella was inserted. A swan liv catheter and L IJ trialysis were also placed. Impella was weaned slowly and removed 06/10. Pressors and vent settings were weaned slowly, and patient was ultimately extubated on 06/20.Passed MBS and was started on a PO DM diet. Pt is tolerating well. Pt is participating in therapy and is able to tolerate 3hrs of therapy a day. Pt has been deemed medically stable and appropriate for comprehensive rehab. PMR MD to have formal referral placed. Past Medical History: Diagnosis Date Amplified musculoskeletal pain Diabetes mellitus Heart attack 04/14/2017 HTN (hypertension) Hyperlipidemia Thromboembolism Past Surgical History: Procedure Laterality Date HX ANGIOPLASTY N/A 04/17/2017 Family history Non contributory Social History Tobacco Use Smoking status: Never Smokeless tobacco: Never Substance Use Topics Alcohol use: No Drug use: No reports that he has never smoked. He has never used smokeless tobacco. He reports that he does not drink alcohol and does not use drugs. Review of Systems: No new fever or chills, worsening cough or colds, chest pain No new abdominal pain, heat or cold intolerance + fatigue, cough, weakness, Objective Data: Vitals With Comments 07/06/2022 1000 07/06/2022 0516 07/05/2022201207/05/2022 1937 BP: -- 152/77 178/73 178/73 Pulse: -- 63 66 65 Resp: -- 18 -- 18 Temp: -- 98 ??F (36.7 ??C) -- 99.2 ??F (37.3 ??C) Temp src: -- Oral -- Oral SpO2: -- 96 % -- 93 % Weight: 117.5 kg (259 lb) -- -- -- 07/06 0700 - 07/06 1859 In: 360 [P.O.:360] Out: - General alert, awake, no cardiopulmonary distress, weakness Lungs Decreased breath sounds at bases Heart regular rate and rhythm Abdomen soft, non-tender, with bowel sounds, + PD cath, + DM pump Extremities pulses noted, no cyanosis Labs ordered and awaiting results - CBC result (most recent): Lab Results Component Value Date/Time WBC 4.1 07/04/2022 11:09 AM HGB 8.9 (L) 07/04/2022 11:09 AM HCT 28.1 (L) 07/04/2022 11:09 AM PLT 323 07/04/2022 11:09 AM MCV 94.9 07/04/2022 11:09 AM BMP result (most recent): Lab Results Component Value Date/Time NA 134 (L) 07/04/2022 11:09 AM K 4.7 07/04/2022 11:09 AM CL 95 (L) 07/04/2022 11:09 AM CO2 24 07/04/2022 11:09 AM CA 9.1 07/04/2022 11:09 AM BUN 49 (H) 07/04/2022 11:09 AM CREAT 8.63 (H) 07/04/2022 11:09 AM GLUCOSE 304 (H) 07/04/2022 11:09 AM ANIONGAP 15 07/04/2022 11:09 AM CMP result (most recent): Lab Results Component Value Date/Time NA 134 (L) 07/04/2022 11:09 AM K 4.7 07/04/2022 11:09 AM CL 95 (L) 07/04/2022 11:09 AM CO2 24 07/04/2022 11:09 AM CA 9.1 07/04/2022 11:09 AM BUN 49 (H) 07/04/2022 11:09 AM CREAT 8.63 (H) 07/04/2022 11:09 AM GLUCOSE 304 (H) 07/04/2022 11:09 AM TOTALPROTEIN 6.3 (L) 07/04/2022 11:09 AM ALBUMIN 3.1 (L) 07/04/2022 11:09 AM BILITOTAL 0.4 07/04/2022 11:09 AM ALKPHOS 107 07/04/2022 11:09 AM AST 48 (H) 07/04/2022 11:09 AM ALT 44 (H) 07/04/2022 11:09 AM ANIONGAP 15 07/04/2022 11:09 AM HEPATIC function panel result (most recent): Lab Results Component Value Date/Time ALT 44 (H) 07/04/2022 11:09 AM AST 48 (H) 07/04/2022 11:09 AM ALKPHOS 107 07/04/2022 11:09 AM Hemoglobin A1C result (most recent): No results found for: HGBA1C, [id number] LIPID panel result (most recent): No results found for: CHOLTOT, HDL, LDLCALC, LDLDIRECT, TRIGLYCERIDE UA results do not (most recent): Lab Results Component Value Date/Time PHUA 5.0 06/30/2022 02:55 PM SGUR 1.024 06/30/2022 02:55 PM URINELEUKOC Negative 06/30/2022 02:55 PM NITRITEUA Negative 06/30/2022 02:55 PM KETONEURINE Negative 06/30/2022 02:55 PM PROTEINUA Negative 06/30/2022 02:55 PM GLUUA 2+ (A) 06/30/2022 02:55 PM BLOODUA Negative 06/30/2022 02:55 PM CULTURE Date Value Ref Range Status 06/30/2022 <10,000 cfu/mL Staphylococcus epidermidis (A) Final Comment: No further workup indicated. No results found for this or any previous visit. Hospitalist Statement: The Internal Medicine team participates in patient care to directly impact the acute rehabilitationprocess. Daily rounds include discussion of I and Os, avoiding hypotension and hypoglycemia. Daily medication review completed. Ongoing efforts to coordinate care, maintain euvolemia, adequate nutrition, electrolyte management, appropriate BP management, overall stability, and management of co-morbidites individually are being dictated by clinical progress. Documentation partially completed using dictation services and EMR. Please excuse any typographicalerrors that may have occurred. LESLY Ayala MD Internal Medicine Director // T CYTOLOGIST * Srinivas Jon MD - 07/06/2022 12:52 PM CST REHAB/PMA&R DAILY PROGRESS NOTE Date: 07/06/2022 Time: 12:52 PM Subjective: Sleeping and eating ok. Mild lightheadedness in PT today. IM and renal input appreciated. ESRD on PD. Eucerin for dry skin. Progressing well in therapy. Recent labs reviewed. Planning dc home on 07/09 with [facility] and supervision. Pt is aware. Function status and progress towards rehab goals: PT: ambulated 100' in hallway and 50' in comp gym with WWR and CGA/SBA. Denies any dizziness/lightheadedness. OT: CGA mainly, min LE drsg and foot wear. ZINC PLATER: min for memory and PS. Goals: continue to address his medical stability, orthostasis, strengthening, endurance, balance toreach mod I at dc ELOS: 07/09 [facility] PT, OT, ZINC PLATER, RN. Review of System: No fever, nausea/vomiting, chest pain, or shortness of breath. Exam: BP (!) 152/77 (BP Location: Left arm, Patient Position (BP): Supine) Pulse 63 Temp 98 ??F(36.7 ??C) (Oral) Resp 18 Ht 5' 10 (1.778 m) Wt 117.5 kg (259 lb) SpO2 96% BMI 37.16 kg/m?? General appearance: alert, in no distress Skin/sores/incisions: No rashes or lesions; Musculoskeletal: LE edema Neurologic: Mental status: Alert, awake, responsive, oriented to time and place and person, attentive. Language: Fluent, good naming and good repetition. Cranial nerves: Pupils are normal reactive to light EOM: full, normal visual charles No ptosis Normal facial sensation and no facial weakness Normal hearing Muscle strength: 5/5 in UE/LExts proximally and distally bilaterally. Psych: affect is euthymic. Current Medications: Facility-Administered Medications as of 07/06/2022 Medication Dose Frequency Provider Last Rate Last Admin mineral oil-white petrolatum-ceresin (EUCERIN) topical cream daily Jasmin Bradley MD Given at metoprolol tartrate (LOPRESSOR) tablet 12.5 mg 12.5 mg BID Avni Clifford PA 12.5 mg at 735 furosemide (LASIX) tablet 80 mg 80 mg daily Jasmin Bradley MD 80 mg at 07/06/22 0736 tiZANidine (ZANAFLEX) tablet 4 mg 4 mg every 8 hours Avni Clifford PA 4 mg at 07/06/22 1229 [COMPLETED] potassium chloride (KLOR-CON) SR tablet 40 mEq 40 mEq ONE time only Jasmin Bradley MD 40 mEq at 07/03/22 0533 aspirin (ECOTRIN EC) tablet 81 mg 81 mg daily Jasmin Bradley MD 81 mg at 07/06/22 0736 darbepoetin genia (ARANESP) 100 mcg/0.5 mL injection 100 mcg 100 mcg every 7 days Jasmin Bradley MD 100mcg at 07/03/22 1005 [COMPLETED] potassium chloride (KLOR-CON) SR tablet 40 mEq 40 mEq ONE time only Avni Clifford PA 40 mEq at 07/01/22 1100 calcium acetate (CALPHRON) tablet 667 mg 667 mg TID BEFORE meals Avni Clifford PA 667 mg at 07/06/22 1229 peg [id number] 1-0.2-0.2 % ophthalmic solution 1 Drop 1 Drop QID Avni Clifford PA 1 Drop at 07/06/22 1229 calcitRIOL (ROCALTROL) capsule 0.25 mcg 0.25 mcg daily Avni Clifford PA 0.25 mcg at 07/06/22 0735 heparin injection 5,000 Units 5,000 Units every 8 hours Avni Clifford PA 5,000 Units at 07/06/22 1229 atorvastatin (LIPITOR) tablet 80 mg 80 mg daily Avni Clifford PA 80 mg at 07/06/22 0737 clopidogreL (PLAVIX) tablet 75 mg 75 mg daily Avni Clifford PA 75 mg at 07/06/22 0735 nitroglycerin (NITROSTAT) tablet 0.4 mg 0.4 mg every 5 minutes PRN Avni Clifford PA isosorbide mononitrate (IMDUR) SR 24 hour tablet 30 mg 30 mg daily Avni Clifford PA 30 mg at 07/06/22 0734 pantoprazole (PROTONIX) tablet 40 mg 40 mg daily Avni Clifford PA 40 mg at 07/06/22 0708 gentamicin (GARAMYCIN) 0.1 % topical ointment daily Avni Clifford PA Given at 07/04/22 0900 naloxone (NARCAN) 0.4 mg/mL injection 0.1 mg 0.1 mg see admin instructions Avni Clifford PA ondansetron (ZOFRAN ODT) tablet 4 mg 4 mg every 6 hours PRN Avni Clifford PA prochlorperazine maleate (COMPAZINE) tablet 10 mg 10 mg every 6 hours PRN Avni Clifford PA albuterol (PROVENTIL,VENTOLIN) 2.5 mg /3 mL (0.083 %) inhalation solution 2.5 mg 2.5 mg resp, every6 hours PRN Avni Clifford PA bisacodyL (DULCOLAX) delayed release tablet 5 mg 5 mg daily PRN Avni Clifford PA bisacodyL (DULCOLAX) rectal suppository 10 mg 10 mg daily PRN Avni Clifford PA aluminum - magnesium - simethicone (MYLANTA) 200-200-20 mg/5 mL oral suspension 30 mL 30 mL every 4hours PRN Avni Clifford PA calcium as carbonate (TUMS) 500 mg (200 mg elemental) chewable tablet 200 mg 200 mg every 4 hours PRN Avni Clifford PA folic acid-Vit B6-Vit B12 (FOLTX) per tablet 1 Tablet 1 Tablet daily Avni Clifford PA 1 Tablet at 07/06/22 0736 dextrose 5% - sodium chloride 0.9% infusion see admin instructions Avni Clifford PA dextrose 50% (D50) syringe 12.5 Gram 12.5 Gram see admin instructions Avni Clifford PA dextrose 50% (D50) syringe 25 Gram 25 Gram see admin instructions Avni Clifford PA glucagon human recombinant (GLUCAGEN) 1 mg/mL injection 1 mg 1 mg see admin instructions Avni Clifford PA dextrose 50% (D50) syringe 12.5 Gram 12.5 Gram see admin instructions Avni Clifford PA dextrose 50% (D50) syringe 25 Gram 25 Gram see admin instructions Avni Clifford PA glucagon human recombinant (GLUCAGEN) 1 mg/mL injection 1 mg 1 mg see admin instructions Avni Clifford PA insulin aspart pump basal (NovoLOG) 100 unit/mL infusion TID Avni Clifford PA 1.7 Units/hr at 07/06/22 0801 insulin lispro (HumaLOG) variable dose injection QID WITH meals and HS Avni Clifford PA 7.2 Units at 07/03/22 1651 colchicine (COLCRYS) tablet 0.6 mg 0.6 mg every 48 hours Avni Clifford PA 0.6 mg at 07/06/22 0735 doxycycline monohydrate (MONODOX) capsule 50 mg 50 mg every 12 hours (2 times daily) Avni Clifford PA 50 mg at 07/06/22 0736 ezetimibe (ZETIA) tablet 10 mg 10 mg daily Avni Clifford PA 10 mg at 07/06/22 0737 ranolazine ER (RANEXA) SR 12 hour tablet 500 mg 500 mg every 12 hours (2 times daily) Avni Clifford PA 500 mg at 07/06/22 0736 cetirizine (ZyrTEC) tablet 5 mg 5 mg daily PRN Avni Clifford PA 5 mg at 06/30/22 0801 [COMPLETED] New Admission Meds - retrieve upon admission every 4 hours Avni Clifford PA Given at 06/29/22 1600 melatonin tablet 6 mg 6 mg daily BEDTIME Avni Clifford PA 6 mg at 07/05/222013 acetaminophen (TYLENOL) tablet 650 mg 650 mg every 6 hours PRN Srinivas Jon MD 650 mg at 06/30/22 0801 HYDROcodone-acetaminophen (NORCO) 5-325 mg per tablet 1 Tablet 1 Tablet every 6 hours PRN Srinivas Jon MD 1 Tablet at 07/05/222012 Data: UA result (most recent): Lab Results Component Value Date/Time PHUA 5.0 06/30/2022 02:55 PM SGUR 1.024 06/30/2022 02:55 PM URINELEUKOC Negative 06/30/2022 02:55 PM NITRITEUA Negative 06/30/2022 02:55 PM KETONEURINE Negative 06/30/2022 02:55 PM PROTEINUA Negative 06/30/2022 02:55 PM GLUUA 2+ (A) 06/30/2022 02:55 PM BLOODUA Negative 06/30/2022 02:55 PM Urine Random Protein result: No results found for: PROTEINUR CBC result (most recent): Lab Results Component Value Date/Time WBC 4.1 07/04/2022 11:09 AM HGB 8.9 (L) 07/04/2022 11:09 AM HCT 28.1 (L) 07/04/2022 11:09 AM PLT 323 07/04/2022 11:09 AM MCV 94.9 07/04/2022 11:09 AM BMP result (most recent): Lab Results Component Value Date/Time NA 134 (L) 07/04/2022 11:09 AM K 4.7 07/04/2022 11:09 AM CL 95 (L) 07/04/2022 11:09 AM CO2 24 07/04/2022 11:09 AM CA 9.1 07/04/2022 11:09 AM BUN 49 (H) 07/04/2022 11:09 AM CREAT 8.63 (H) 07/04/2022 11:09 AM GLUCOSE 304 (H) 07/04/2022 11:09 AM ANIONGAP 15 07/04/2022 11:09 AM CMP result (most recent): Lab Results Component Value Date/Time NA 134 (L) 07/04/2022 11:09 AM K 4.7 07/04/2022 11:09 AM CL 95 (L) 07/04/2022 11:09 AM CO2 24 07/04/2022 11:09 AM CA 9.1 07/04/2022 11:09 AM BUN 49 (H) 07/04/2022 11:09 AM CREAT 8.63 (H) 07/04/2022 11:09 AM GLUCOSE 304 (H) 07/04/2022 11:09 AM TOTALPROTEIN 6.3 (L) 07/04/2022 11:09 AM ALBUMIN 3.1 (L) 07/04/2022 11:09 AM BILITOTAL 0.4 07/04/2022 11:09 AM ALKPHOS 107 07/04/2022 11:09 AM AST 48 (H) 07/04/2022 11:09 AM ALT 44 (H) 07/04/2022 11:09 AM ANIONGAP 15 07/04/2022 11:09 AM LIPID panel result (most recent): No results found for: CHOLTOT, HDL, LDLCALC, LDLDIRECT, TRIGLYCERIDE GLUCOSE result (most recent): Lab Results Component Value Date/Time GLUCOSE 304 (H) 07/04/2022 11:09 AM Coagulation result (most recent): No results found for: PT, INR, APTT Assessment and Plan: Debility: Continue inpatient comprehensive interdisciplinary rehabilitation to address strengthening, mobility skills, self care, cognitive functioning, speech, communication and swallowing needs. The patient continues to require the interdisciplinary team approach and 24 hour monitoring. CAD, s/p NSTEMI, s/p PCI. Cont asa, metoprolol, statin. Cardiogenic shock Afib: metoprolol, DAPT Acute on chronic systolic CHF: EF 65%: cont lasix, metoprolol, losartan, imdur ESRD, on PD: renal consulted DM: insulin pump at home, resumed per home settings HTN: metoprolol, lasix, clonidine, hydralazine AHRF: pulm toilet, BD prn Dysphagia: resolved, passed MBS 06/21 Severe obsity, BMI 37: encourage weight cessation. DVT Prevention: heparin Pain Management: apap, norco prn Stress ulcer prophylaxis: PPI Bladder management: monitor voiding pattern, monitor bladder scans/PVRs, straight cath per parameters. Bowel management: monitor stooling pattern, continue bowel program adjust laxatives as needed. Code: full F/u: PCP, Aditya Lara MD [phone] Cardiology Endocrinology Srinivas Jon MD T CYTOLOGIST * Kamryn Browning RN - 07/05/2022 10:00 PM CST Patient has had no falls at this time and is fall risk level/color yellow Interventions in Place: [x] Bed Alarm [] Clip Chair Alarm [] Self-Releasing Belt (a one time order is required) [x] Call Light within reach, return demo by patient completed [] Handoff patient when returning him/her to room [] Wheelchair/Walker out of reach [x] Low Bed [] Mats in Place [] Observation Room [x] Fall Risk Magnet on Door [x] Fall Risk Magnet on Schedule Board [x] Fall Risk Armband on Patient [] Sitter [] Other If patient is a red fall risk, do not leave alone in the bathroom. Patient Education on Medications Education provided Re: Juvenal Daigle This education was provided to the patient Name of medication: all evening meds The education included the following: How to identify their medication, Administering their medication, Understanding the side effects oftheir medication Kamryn Browning RN Received pt on his bed A,O X 4. Verbalized he had a good day.Had shower today. Seen by Dr. Escalona.Insulin pump replaced with new cartridge. Pt complaints of pain,Ruth is given with all other meds. Hourly rounding,call light within reach , bed alarm on and low bed. Blood sugar checked. Bruised notedon his abdomen and dry & flaky skin. T CYTOLOGIST * Marry Estrada RN - 07/05/2022 6:29 PM CST 07/04/22: I drain volume- 5 ml Total UF- 557 ml Effluent clear yellow 07/05/22: patient connected to peritoneal dialysis. Dressing changed earlier in the day. Patient is calm, alert and oriented x's 4. T CYTOLOGIST * Jasmin Bradley MD - 07/05/2022 5:00 PM CST RENAL Patient feels better today without the dizzy or lightheadedness with CCPD changed to 2.5% and 1.5% dianeal half and a half. Lasix dose decreased to daily. Vitals: Vitals: 07/05/22 1100 07/05/22 1700 07/05/22 1937 07/05/222012 BP: 132/65 (!) 178/73 (!) 178/73 BP Location: Right arm Left arm Patient Position (BP): Sitting Supine Pulse: 65 65 66 Resp: 20 18 Temp: 97.7 ??F (36.5 ??C) 99.2 ??F (37.3 ??C) TempSrc: Oral Oral SpO2: 95% 93% Weight: 117.3 kg (258 lb 9.6 oz) Height: I&O: Intake/Output Summary (Last 24 hours) at 07/06/2022 0026 Last data filed at 07/05/2022 1300 Gross per 24 hour Intake 420 ml Output -- Net 420 ml Examination: RRR, CTA Soft, NT , ND BS+ No edema, PD cath exit site clean and dry Skin warm and dry Labs: Lab Results Component Value Date HGB 8.9 (L) 07/04/2022 , Lab Results Component Value Date WBC 4.1 07/04/2022 , Lab Results Component Value Date PLT 323 07/04/2022 , Lab Results Component Value Date NA 134 (L) 07/04/2022 K 4.7 07/04/2022 CL 95 (L) 07/04/2022 CO2 24 07/04/2022 CA 9.1 07/04/2022 BUN 49 (H) 07/04/2022 CREAT 8.63 (H) 07/04/2022 GLUCOSE 304 (H) 07/04/2022 ANIONGAP 15 07/04/2022 , No results found for: IRON, TIBC, FERRITIN, Lab Results Component Value Date [id number] 1,178 06/30/2022 , No results found for: FOLATE, FOLATERBC, Lab Results Component Value Date CA 9.1 07/04/2022 PO4 5.3 (H) 07/01/2022 , Lab Results Component Value Date CREAT 8.63 (H) 07/04/2022 GFR 7 (L) 07/04/2022 , No results found for: RPR, RPRTITER, No results found for: CHOLTOT, HDL, LDLCALC, LDLDIRECT, TRIGLYCERIDE, Lab Results Component Value Date CRP 5.0 (H) 07/04/2022 , Lab Results Component Value Date HEPBSAG Non-reactive 06/30/2022 , Assessment/Plan: Patient Active Hospital Problem List: ESRD on CCPD daily --CCPD use 1.5% and 25% half and half Dianeal with 2.5L dwelling volume. 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 --Short-term colchicine need to be renal dose Hyperparathyroidism, renal osteodystrophy --Vitamin D --Phosphorus binder Renvela Acute hypoxemic respiratory failure, cardiogenic shock pneumonia --Abx --Bronchi dilator --Lasix Gastroesophageal reflux disease without esophagitis (04/24/2018) --Protonix DVT Prophlaxis - Heparin Current Planned Disposition - home Plan discussed with patient; questions answered; patient agrees with current plan. Current Code Status -Full Code Thank you for inviting me to participate the care of this patient, will follow up closely with you. JASMIN BRADLEY MD [facility] Office [phone] T CYTOLOGIST * Conrad Dumont MD - 07/05/2022 2:10 PM CST Images from the original note were not included. Internal Medicine/Rehabilitation Service Patient: Juvenal Daigle Date of : 1970 Admission Date: (06/29/2022) Vitals With Comments 07/05/2022 1100 07/05/2022 0819 07/05/2022 0544 07/04/20221943 BP: -- 107/66 137/73 148/79 Pulse: -- 68 61 67 Resp: -- 18 18 18 Temp: -- 97.7 ??F (36.5 ??C) 97.8 ??F (36.6 ??C) 98.1 ??F (36.7 ??C) Temp src: -- -- Oral Oral SpO2: -- 96 % 94 % 94 % Weight: 117.3 kg (258 lb 9.6 oz) -- -- -- DIET DIABETIC 2GM Sodium (Low), Full Code BIPAP settings. Timeline (including subjective): 07/05/22- Patient with improved stamina this morning. He is less orthostatic this a.m. We will continue to change and rearrange his medications based on his symptoms. Continue current regime at current dosing. Nephrology actually has intervene as well and has changed dialysate accommodate his needs. Pleased with current progress. P.o. intakes improved, last bowel movement noted was 07/03, labs have been reviewed and discussed. Patient states that he needs refill on his glucose pump every 3 to 4days. 07/04/2022- Pt with ongoing PD HS. Pt with soft BPs and will d/c clonidine patch and decrease BB. Pt with ongoing BGL mx via pump. Management of vital signs ongoing and significant. Will assess dailyin order to observe improvements. Patient is motivated to get better and is making gains each day. Patient poses reasonable probability for potential of complications. Will continue to optimize. Labsreviewed. Continue to offer elyte derangement mx. 07/02/22- Patient states he feels better. He thinks his pain medicine improves his overall pain perception versus the muscle relaxant. Will increase his muscle relaxant and follow outcomes. Patient states that he feels better as his BPs are slightly higher than previous as he was feeling markedly dizzy with any type of activity. T-max overnight was 99 ??F. PD management continues. Wampm-ou-trae glucoses are elevated patient is following endocrine's protocol. Labs tomorrow. complex care continues. Appreciate nephrology following along- continue course 07/01/22- Patient appears improved clinically since admission. His skin tone is improved as well. Ongoing PD management continues per nephrology. T-max overnight was 99.3 and has since resolved to afebrile status, pulse rates ideal, tolerating room air. P.o. intake is improved since admission. Labsthis morning show white blood cell count 3.5, hematocrit 26.9, sodium 131, potassium 3.3, creatinine 9.56, phosphorus of 5.3. Nephrology is following along and continue to follow formal recommendations. Will offer Klor-Con x1 and follow outcomes. Continue to hold his BP meds as the patch is workingand will start to reintroduce multiple medications if necessary in the acute rehab process. Patient's insulin pump is running low and waiting for family to bring in insulin to refill. Continue course. 06/30/22- Patient notes that he was very uncomfortable with sleep last night. He said his whole body hurt . Patient was offered pain regime per PMR MD. Will offer muscle relaxant as likely related to tone and spasm. Patient apparently is running out of his insulin in his insulin pump. Will offer him long-acting and short acting as directed once his insulin pump has stopped. He has at least 12 more hours of long-acting insulin per his report. We will continue sliding scale short acting insulin as his family apparently will bring in his home supply to refill his pump. PD continues and patient should have catheter care at PD exit site with antibiotic. Patient with chest x-ray that shows some form of pneumonia. We will offer a sputum culture induced by respiratory services to send for sample. Patient has been scheduled and tested for multiple COVID tests and have been negative. Ongoing care continues complex management and medical supervision is highly crucial and indicated. 06/29/2022 - Admission to [facility] - (Admission Data below). DAPT on ASA and Plavix. Pt appears ill. Pt with PD cath and DM pump. Discussed care at length with bedside RN and RESPlead. On going aggressive medical mgt continues to optimize pt for continued success in the comprehensive rehab course. Complex needs are noted. Reviewed extensive records from [facility] and daughter says BIPAP settings. 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 Anemia of chronic renal failure, stage 4 (severe) Hyperlipidemia- HCTZ, HTN (hypertension) Diabetes mellitus BEN (obstructive sleep apnea) Gout Congestive heart failure Hypertensive kidney disease with end-stage renal disease ESRD (end stage renal disease) Diabetic peripheral neuropathy Ketoacidosis due to type 1 diabetes mellitus Stage 5 chronic kidney disease Right upper quadrant pain Proliferative diabetic retinopathy associated with type 2 diabetes mellitus Pre-transplant evaluation for kidney transplant History of coronary artery stent placement History of deep vein thrombosis Hypersomnia Gastritis Gastroesophageal reflux disease without esophagitis Dystrophia unguium Dysphagia- ZINC PLATER to assess and follow Cardiogenic shock Anemia in chronic kidney disease Acute on chronic HFrEF (heart failure with reduced ejection fraction) Abnormal cardiovascular stress test Acute hypoxemic respiratory failure DVT PRX: Heparin, SCDS Electrolyte derangement-Bind and Replenish Anemia-Follow H/H. Transfuse when clinically indicated Pain Control- titration throughout acute inpatient rehab process Nausea-Zofran prn Constipation-Bowel Regimen, follow output daily Polypharmacy-Follow. Medications fully reconciled Vitamin deficiency-Supplement Nursing Instructions: Incentive spirometry, I/O's, Vitals every 8 hours, Nutrition and ADLs Record Review: moderate Old medical records, labs, preadmission screening, previous radiology studies. Nutritional support and Blood sugar management - encourage adequate diet, caloric intake, fluid balance Avoid hypoglycemia Medication Profile: Allergies Allergen Reactions Allopurinol Shortness of Breath/Wheezing and Other (See Comments) Shuts my kidneys down per patient. Chlorhexidine Other (See Comments) Skin peels all over and becomes tender Iodinated Contrast Media Rash Ticagrelor Rash Scheduled Medication Profile: Facility-Administered Medications as of 07/05/2022 Medication Dose Frequency Provider Last Rate Last Admin mineral oil-white petrolatum-ceresin (EUCERIN) topical cream daily Jasmin Bradley MD Given at metoprolol tartrate (LOPRESSOR) tablet 12.5 mg 12.5 mg BID Avni Clifford PA 12.5 mg at furosemide (LASIX) tablet 80 mg 80 mg daily Jasmin Bradley MD 80 mg at 07/05/2220 tiZANidine (ZANAFLEX) tablet 4 mg 4 mg every 8 hours Avni Clifford PA 4 mg at 07/05/22 1201 [COMPLETED] potassium chloride (KLOR-CON) SR tablet 40 mEq 40 mEq ONE time only Jasmin Bradley MD 40 mEq at 07/03/22 0533 aspirin (ECOTRIN EC) tablet 81 mg 81 mg daily Jasmin Bradley MD 81 mg at 07/05/22 0819 darbepoetin genia (ARANESP) 100 mcg/0.5 mL injection 100 mcg 100 mcg every 7 days Jasmin Bradley MD 100mcg at 07/03/22 1005 [COMPLETED] potassium chloride (KLOR-CON) SR tablet 40 mEq 40 mEq ONE time only Avni Clifford PA 40 mEq at 07/01/22 1100 calcium acetate (CALPHRON) tablet 667 mg 667 mg TID BEFORE meals Avni Clifford PA 667 mg at 07/05/22 1201 peg [id number] 1-0.2-0.2 % ophthalmic solution 1 Drop 1 Drop QID Avni Clifford PA 1 Drop at 07/05/22 1205 calcitRIOL (ROCALTROL) capsule 0.25 mcg 0.25 mcg daily Avni Clifford PA 0.25 mcg at 07/05/22 0820 heparin injection 5,000 Units 5,000 Units every 8 hours Avni Clifford PA 5,000 Units at 07/05/22 1200 atorvastatin (LIPITOR) tablet 80 mg 80 mg daily Avni Clifford PA 80 mg at 07/05/22 0820 clopidogreL (PLAVIX) tablet 75 mg 75 mg daily Avni Clifford PA 75 mg at 07/05/22 0820 nitroglycerin (NITROSTAT) tablet 0.4 mg 0.4 mg every 5 minutes PRN Avni Clifford PA [Held by Provider] isosorbide mononitrate (IMDUR) SR 24 hour tablet 30 mg 30 mg daily Avni Clifford PA 30 mg at 06/30/22 0800 pantoprazole (PROTONIX) tablet 40 mg 40 mg daily Avni Clifford PA 40 mg at 07/05/22 0630 gentamicin (GARAMYCIN) 0.1 % topical ointment daily Avni Clifford PA Given at 07/04/22 0900 naloxone (NARCAN) 0.4 mg/mL injection 0.1 mg 0.1 mg see admin instructions Avni Clifford PA ondansetron (ZOFRAN ODT) tablet 4 mg 4 mg every 6 hours PRN Avni Clifford PA prochlorperazine maleate (COMPAZINE) tablet 10 mg 10 mg every 6 hours PRN Avni Clifford PA albuterol (PROVENTIL,VENTOLIN) 2.5 mg /3 mL (0.083 %) inhalation solution 2.5 mg 2.5 mg resp, every6 hours PRN Avni Clifford PA bisacodyL (DULCOLAX) delayed release tablet 5 mg 5 mg daily PRN Avni Clifford PA bisacodyL (DULCOLAX) rectal suppository 10 mg 10 mg daily PRN Avni Clifford PA aluminum - magnesium - simethicone (MYLANTA) 200-200-20 mg/5 mL oral suspension 30 mL 30 mL every 4hours PRN Avni Clifford PA calcium as carbonate (TUMS) 500 mg (200 mg elemental) chewable tablet 200 mg 200 mg every 4 hours PRN Avni Clifford PA folic acid-Vit B6-Vit B12 (FOLTX) per tablet 1 Tablet 1 Tablet daily Avni Clifford PA 1 Tablet at 07/05/22 0820 dextrose 5% - sodium chloride 0.9% infusion see admin instructions Avni Clifford PA dextrose 50% (D50) syringe 12.5 Gram 12.5 Gram see admin instructions Avni Clifford PA dextrose 50% (D50) syringe 25 Gram 25 Gram see admin instructions Avni Clifford PA glucagon human recombinant (GLUCAGEN) 1 mg/mL injection 1 mg 1 mg see admin instructions Avni Clifford PA dextrose 50% (D50) syringe 12.5 Gram 12.5 Gram see admin instructions Avni Clifford PA dextrose 50% (D50) syringe 25 Gram 25 Gram see admin instructions Avni Clifford PA glucagon human recombinant (GLUCAGEN) 1 mg/mL injection 1 mg 1 mg see admin instructions Avni Clifford PA insulin aspart pump basal (NovoLOG) 100 unit/mL infusion TID Avni Clifford PA 1.7 Units/hr at 07/05/22 0301 insulin lispro (HumaLOG) variable dose injection QID WITH meals and HS Avni Clifford PA 7.2 Units at 07/03/22 1651 colchicine (COLCRYS) tablet 0.6 mg 0.6 mg every 48 hours Avni Clifford PA 0.6 mg at 07/04/22 0826 doxycycline monohydrate (MONODOX) capsule 50 mg 50 mg every 12 hours (2 times daily) Avni Clifford PA 50 mg at 07/05/22 0820 ezetimibe (ZETIA) tablet 10 mg 10 mg daily Avni Clifford PA 10 mg at 07/05/22 0820 ranolazine ER (RANEXA) SR 12 hour tablet 500 mg 500 mg every 12 hours (2 times daily) Avni Clifford PA 500 mg at 07/05/22 0820 cetirizine (ZyrTEC) tablet 5 mg 5 mg daily PRN Avni Clifford PA 5 mg at 06/30/22 0801 [COMPLETED] New Admission Meds - retrieve upon admission every 4 hours Avni Clifford PA Given at 06/29/22 1600 melatonin tablet 6 mg 6 mg daily BEDTIME Avni Clifford PA 6 mg at 07/04/22 2107 acetaminophen (TYLENOL) tablet 650 mg 650 mg every 6 hours PRN Srinivas Jon MD 650 mg at 06/30/22 0801 HYDROcodone-acetaminophen (NORCO) 5-325 mg per tablet 1 Tablet 1 Tablet every 6 hours PRN Srinivas Jon MD 1 Tablet at 07/04/22 1600 Admission Data : CC: Debility/Cardiogenic shock/HTN HPI: Juvenal Daigle is a 51 y.o. male who recently has been admitted to [facility] for comprehensive rehabilitation - multiple complex medical issues will impact medical management throughout the acute inpatient rehabilitation process. Pt has a significant medical history including but not limited to CHF- EF 50%, Afib, HTN, CAD, T1DM, ESRD on PD, HLD, GERD, hyperparathyroidism, DDD, OA, gout, BEN on CPAP, who initially presented to [facility] for n/v, onset three days, with associated chest pain, generalized weakness, chills, ROONEY. Symptoms were relieved with sublingual ntg. His labs were notable for trop 1.0-->1.09-->0.729, BNP [address]. He had a CT CAP showing cholelithiasis and likely PNA. RUQUS showed distended gallbladder with gallstones and gallbladder wall thickening, recommend ed HIDA scan. He was treated with ctx/azithromycin. Pt was started on a heparin gtt. Cath on 06/03 showed previous PCI to proximal and distal right coronary patent, 99% ostial circumflex stenosis as well as 90% circumflex lesion after origin of largest OM branch, mild diffuse disease in LAD which does not appear to be flow limiting. Pt was recommended PCI of left circumflex as optimal treatment. Pt was transfered to [facility] on 06/05. Upon arrival EKG showed sinus bradycardia, 1st deg AV block. ACT was called for substernal chest pressure and hypoxemia, he was placed on BiPAP with improvement in oxygen saturation and transferred to the MICU, where he was placed on AVAPS. CXR showed significantly worsened pulmonary edema. Trop 4797 -> 4266 in the MICU, EKG was unchanged. Pt was started onmero for cholecystitis. He was continued on heparin gtt, started on nitro gtt for BP control and O2was weaned to nasal cannula. Pt underwent complex PCI 06/07, PCI revealed ostial circ lesion of 90%, large OM with 70% narrowing. Patient became hypotensive and hypoxemic requiring levo and epi gtt. The patient was intubated. The left dominant circumflex and OM were then stented. Impella was inserted. A swan liv catheter and L IJ trialysis were also placed. Impella was weaned slowly and removed 06/10. Pressors and vent settings were weaned slowly, and patient was ultimately extubated on 06/20.Passed MBS and was started on a PO DM diet. Pt is tolerating well. Pt is participating in therapy and is able to tolerate 3hrs of therapy a day. Pt has been deemed medically stable and appropriate for comprehensive rehab. PMR to have formal referral placed. Past Medical History: Diagnosis Date Amplified musculoskeletal pain Diabetes mellitus Heart attack 04/14/2017 HTN (hypertension) Hyperlipidemia Thromboembolism Past Surgical History: Procedure Laterality Date HX ANGIOPLASTY N/A 04/17/2017 Family history Non contributory Social History Tobacco Use Smoking status: Never Smokeless tobacco: Never Substance Use Topics Alcohol use: No Drug use: No reports that he has never smoked. He has never used smokeless tobacco. He reports that he does not drink alcohol and does not use drugs. Review of Systems: No new fever or chills, worsening cough or colds, chest pain No new abdominal pain, heat or cold intolerance + fatigue, cough, weakness, Objective Data: Vitals With Comments 07/05/2022 1100 07/05/2022 0819 07/05/2022 0544 07/04/2022 194 BP: -- 107/66 137/73 148/79 Pulse: -- 68 61 67 Resp: -- 18 18 18 Temp: -- 97.7 ??F (36.5 ??C) 97.8 ??F (36.6 ??C) 98.1 ??F (36.7 ??C) Temp src: -- -- Oral Oral SpO2: -- 96 % 94 % 94 % Weight: 117.3 kg (258 lb 9.6 oz) -- -- -- 07/05 0700 - 07/05 1859 In: 420 [P.O.:420] Out: - General alert, awake, no cardiopulmonary distress, weakness Lungs Decreased breath sounds at bases Heart regular rate and rhythm Abdomen soft, non-tender, with bowel sounds, + PD cath, + DM pump Extremities pulses noted, no cyanosis Labs ordered and awaiting results - CBC result (most recent): Lab Results Component Value Date/Time WBC 4.1 07/04/2022 11:09 AM HGB 8.9 (L) 07/04/2022 11:09 AM HCT 28.1 (L) 07/04/2022 11:09 AM PLT 323 07/04/2022 11:09 AM MCV 94.9 07/04/2022 11:09 AM BMP result (most recent): Lab Results Component Value Date/Time NA 134 (L) 07/04/2022 11:09 AM K 4.7 07/04/2022 11:09 AM CL 95 (L) 07/04/2022 11:09 AM CO2 24 07/04/2022 11:09 AM CA 9.1 07/04/2022 11:09 AM BUN 49 (H) 07/04/2022 11:09 AM CREAT 8.63 (H) 07/04/2022 11:09 AM GLUCOSE 304 (H) 07/04/2022 11:09 AM ANIONGAP 15 07/04/2022 11:09 AM CMP result (most recent): Lab Results Component Value Date/Time NA 134 (L) 07/04/2022 11:09 AM K 4.7 07/04/2022 11:09 AM CL 95 (L) 07/04/2022 11:09 AM CO2 24 07/04/2022 11:09 AM CA 9.1 07/04/2022 11:09 AM BUN 49 (H) 07/04/2022 11:09 AM CREAT 8.63 (H) 07/04/2022 11:09 AM GLUCOSE 304 (H) 07/04/2022 11:09 AM TOTALPROTEIN 6.3 (L) 07/04/2022 11:09 AM ALBUMIN 3.1 (L) 07/04/2022 11:09 AM BILITOTAL 0.4 07/04/2022 11:09 AM ALKPHOS 107 07/04/2022 11:09 AM AST 48 (H) 07/04/2022 11:09 AM ALT 44 (H) 07/04/2022 11:09 AM ANIONGAP 15 07/04/2022 11:09 AM HEPATIC function panel result (most recent): Lab Results Component Value Date/Time ALT 44 (H) 07/04/2022 11:09 AM AST 48 (H) 07/04/2022 11:09 AM ALKPHOS 107 07/04/2022 11:09 AM Hemoglobin A1C result (most recent): No results found for: HGBA1C, [id number] LIPID panel result (most recent): No results found for: CHOLTOT, HDL, LDLCALC, LDLDIRECT, TRIGLYCERIDE UA results do not (most recent): Lab Results Component Value Date/Time PHUA 5.0 06/30/2022 02:55 PM SGUR 1.024 06/30/2022 02:55 PM URINELEUKOC Negative 06/30/2022 02:55 PM NITRITEUA Negative 06/30/2022 02:55 PM KETONEURINE Negative 06/30/2022 02:55 PM PROTEINUA Negative 06/30/2022 02:55 PM GLUUA 2+ (A) 06/30/2022 02:55 PM BLOODUA Negative 06/30/2022 02:55 PM CULTURE Date Value Ref Range Status 06/30/2022 <10,000 cfu/mL Staphylococcus epidermidis (A) Final Comment: No further workup indicated. No results found for this or any previous visit. Hospitalist Statement: The Internal Medicine team participates in patient care to directly impact the acute rehabilitationprocess. Daily rounds include discussion of I and Os, avoiding hypotension and hypoglycemia. Daily medication review completed. Ongoing efforts to coordinate care, maintain euvolemia, adequate nutrition, electrolyte management, appropriate BP management, overall stability, and management of co-morbidites individually are being dictated by clinical progress. Documentation partially completed using dictation services and EMR. Please excuse any typographicalerrors that may have occurred. LESLY Ayala MD Internal Medicine Director // T CYTOLOGIST * Srinivas Jon MD - 07/05/2022 11:19 AM CST REHAB/PMA&R DAILY PROGRESS NOTE Date: 07/05/2022 Time: 11:19 AM Subjective: Sleeping and eating ok. Better day in therapy today. Denies orthostasis. IM and renal input appreciated. ESRD on PD. Eucerin for dry skin. Progressing in therapy. Recent labs reviewed. Function status and progress towards rehab goals: PT: ambulated 90ft requiring min A with WWR and w/c follow. OT: CGA mainly, min LE drsg and foot wear. ZINC PLATER: min for memory and PS. Goals: continue to address his medical stability, orthostasis, strengthening, endurance, balance toreach mod I at dc ELOS: 07/09 [facility] PT, OT, ZINC PLATER, RN. Review of System: No fever, nausea/vomiting, chest pain, or shortness of breath. Exam: BP 107/66 Pulse 68 Temp 97.7 ??F (36.5 ??C) Resp 18 Ht 5' 10 (1.778 m) Wt 117.3 kg(258 lb 9.6 oz) SpO2 96% BMI 37.11 kg/m?? General appearance: alert, in no distress Skin/sores/incisions: No rashes or lesions; Musculoskeletal: LE edema Neurologic: Mental status: Alert, awake, responsive, oriented to time and place and person, attentive. Language: Fluent, good naming and good repetition. Cranial nerves: Pupils are normal reactive to light EOM: full, normal visual charles No ptosis Normal facial sensation and no facial weakness Normal hearing Muscle strength: 5/5 in UE/LExts proximally and distally bilaterally. Psych: affect is euthymic. Current Medications: Facility-Administered Medications as of 07/05/2022 Medication Dose Frequency Provider Last Rate Last Admin mineral oil-white petrolatum-ceresin (EUCERIN) topical cream daily Jasmin Bradley MD metoprolol tartrate (LOPRESSOR) tablet 12.5 mg 12.5 mg BID Avni Clifford PA 12.5 mg at 820 furosemide (LASIX) tablet 80 mg 80 mg daily Jasmin Bradley MD 80 mg at 07/05/22 0820 tiZANidine (ZANAFLEX) tablet 4 mg 4 mg every 8 hours Avni Clifford PA 4 mg at 07/05/22 0631 [COMPLETED] potassium chloride (KLOR-CON) SR tablet 40 mEq 40 mEq ONE time only Jasmin Bradley MD 40 mEq at 07/03/22 0533 aspirin (ECOTRIN EC) tablet 81 mg 81 mg daily Jasmin Bradley MD 81 mg at 07/05/22 0819 darbepoetin genia (ARANESP) 100 mcg/0.5 mL injection 100 mcg 100 mcg every 7 days Jasmin Bradley MD 100mcg at 07/03/22 1005 [COMPLETED] potassium chloride (KLOR-CON) SR tablet 40 mEq 40 mEq ONE time only Avni Clifford PA 40 mEq at 07/01/22 1100 calcium acetate (CALPHRON) tablet 667 mg 667 mg TID BEFORE meals Avni Clifford PA 667 mg at 07/05/22 0820 peg [id number] 1-0.2-0.2 % ophthalmic solution 1 Drop 1 Drop QID Avni Clifford PA 1 Drop at 07/05/22 0820 calcitRIOL (ROCALTROL) capsule 0.25 mcg 0.25 mcg daily Avni Clifford PA 0.25 mcg at 07/05/22 0820 heparin injection 5,000 Units 5,000 Units every 8 hours Avni Clifford PA 5,000 Units at 07/05/22 0631 atorvastatin (LIPITOR) tablet 80 mg 80 mg daily Avni Clifford PA 80 mg at 07/05/22 0820 clopidogreL (PLAVIX) tablet 75 mg 75 mg daily Avni Clifford PA 75 mg at 07/05/22 0820 nitroglycerin (NITROSTAT) tablet 0.4 mg 0.4 mg every 5 minutes PRN Avni Clifford PA [Held by Provider] isosorbide mononitrate (IMDUR) SR 24 hour tablet 30 mg 30 mg daily Avni Clifford PA 30 mg at 06/30/22 0800 pantoprazole (PROTONIX) tablet 40 mg 40 mg daily Avni Clifford PA 40 mg at 07/05/22 0630 gentamicin (GARAMYCIN) 0.1 % topical ointment daily Avni Clifford PA Given at 07/04/22 0900 naloxone (NARCAN) 0.4 mg/mL injection 0.1 mg 0.1 mg see admin instructions Avni Clifford PA ondansetron (ZOFRAN ODT) tablet 4 mg 4 mg every 6 hours PRN Avni Clifford PA prochlorperazine maleate (COMPAZINE) tablet 10 mg 10 mg every 6 hours PRN Avni Clifford PA albuterol (PROVENTIL,VENTOLIN) 2.5 mg /3 mL (0.083 %) inhalation solution 2.5 mg 2.5 mg resp, every6 hours PRN Avni Clifford PA bisacodyL (DULCOLAX) delayed release tablet 5 mg 5 mg daily PRN Avni Clifford PA bisacodyL (DULCOLAX) rectal suppository 10 mg 10 mg daily PRN Avni Clifford PA aluminum - magnesium - simethicone (MYLANTA) 200-200-20 mg/5 mL oral suspension 30 mL 30 mL every 4hours PRN Avni Clifford PA calcium as carbonate (TUMS) 500 mg (200 mg elemental) chewable tablet 200 mg 200 mg every 4 hours PRN Avni Clifford PA folic acid-Vit B6-Vit B12 (FOLTX) per tablet 1 Tablet 1 Tablet daily Avni Clifford PA 1 Tablet at 07/05/22 0820 dextrose 5% - sodium chloride 0.9% infusion see admin instructions Avni Clifford PA dextrose 50% (D50) syringe 12.5 Gram 12.5 Gram see admin instructions Avni Clifford PA dextrose 50% (D50) syringe 25 Gram 25 Gram see admin instructions Avni Clifford PA glucagon human recombinant (GLUCAGEN) 1 mg/mL injection 1 mg 1 mg see admin instructions Avni Clifford PA dextrose 50% (D50) syringe 12.5 Gram 12.5 Gram see admin instructions Avni Clifford PA dextrose 50% (D50) syringe 25 Gram 25 Gram see admin instructions Avni Clifford PA glucagon human recombinant (GLUCAGEN) 1 mg/mL injection 1 mg 1 mg see admin instructions Avni Clifford PA insulin aspart pump basal (NovoLOG) 100 unit/mL infusion TID Avni Clifford PA 1.7 Units/hr at 07/05/22 0301 insulin lispro (HumaLOG) variable dose injection QID WITH meals and HS Avni Clifford PA 7.2 Units at 07/03/22 1651 colchicine (COLCRYS) tablet 0.6 mg 0.6 mg every 48 hours Avni Clifford PA 0.6 mg at 07/04/22 0826 doxycycline monohydrate (MONODOX) capsule 50 mg 50 mg every 12 hours (2 times daily) Avni Clifford PA 50 mg at 07/05/22 0820 ezetimibe (ZETIA) tablet 10 mg 10 mg daily Avni Clifford PA 10 mg at 07/05/22 0820 ranolazine ER (RANEXA) SR 12 hour tablet 500 mg 500 mg every 12 hours (2 times daily) Avni Clifford PA 500 mg at 07/05/22 0820 cetirizine (ZyrTEC) tablet 5 mg 5 mg daily PRN Avni Clifford PA 5 mg at 06/30/22 0801 [COMPLETED] New Admission Meds - retrieve upon admission every 4 hours Avni Clifford PA Given at 06/29/22 1600 melatonin tablet 6 mg 6 mg daily BEDTIME Avni Clifford PA 6 mg at 07/04/22 2107 acetaminophen (TYLENOL) tablet 650 mg 650 mg every 6 hours PRN Srinivas Jon MD 650 mg at 06/30/22 0801 HYDROcodone-acetaminophen (NORCO) 5-325 mg per tablet 1 Tablet 1 Tablet every 6 hours PRN Srinivas Jon MD 1 Tablet at 07/04/22 1600 Data: UA result (most recent): Lab Results Component Value Date/Time PHUA 5.0 06/30/2022 02:55 PM SGUR 1.024 06/30/2022 02:55 PM URINELEUKOC Negative 06/30/2022 02:55 PM NITRITEUA Negative 06/30/2022 02:55 PM KETONEURINE Negative 06/30/2022 02:55 PM PROTEINUA Negative 06/30/2022 02:55 PM GLUUA 2+ (A) 06/30/2022 02:55 PM BLOODUA Negative 06/30/2022 02:55 PM Urine Random Protein result: No results found for: PROTEINUR CBC result (most recent): Lab Results Component Value Date/Time WBC 4.1 07/04/2022 11:09 AM HGB 8.9 (L) 07/04/2022 11:09 AM HCT 28.1 (L) 07/04/2022 11:09 AM PLT 323 07/04/2022 11:09 AM MCV 94.9 07/04/2022 11:09 AM BMP result (most recent): Lab Results Component Value Date/Time NA 134 (L) 07/04/2022 11:09 AM K 4.7 07/04/2022 11:09 AM CL 95 (L) 07/04/2022 11:09 AM CO2 24 07/04/2022 11:09 AM CA 9.1 07/04/2022 11:09 AM BUN 49 (H) 07/04/2022 11:09 AM CREAT 8.63 (H) 07/04/2022 11:09 AM GLUCOSE 304 (H) 07/04/2022 11:09 AM ANIONGAP 15 07/04/2022 11:09 AM CMP result (most recent): Lab Results Component Value Date/Time NA 134 (L) 07/04/2022 11:09 AM K 4.7 07/04/2022 11:09 AM CL 95 (L) 07/04/2022 11:09 AM CO2 24 07/04/2022 11:09 AM CA 9.1 07/04/2022 11:09 AM BUN 49 (H) 07/04/2022 11:09 AM CREAT 8.63 (H) 07/04/2022 11:09 AM GLUCOSE 304 (H) 07/04/2022 11:09 AM TOTALPROTEIN 6.3 (L) 07/04/2022 11:09 AM ALBUMIN 3.1 (L) 07/04/2022 11:09 AM BILITOTAL 0.4 07/04/2022 11:09 AM ALKPHOS 107 07/04/2022 11:09 AM AST 48 (H) 07/04/2022 11:09 AM ALT 44 (H) 07/04/2022 11:09 AM ANIONGAP 15 07/04/2022 11:09 AM LIPID panel result (most recent): No results found for: CHOLTOT, HDL, LDLCALC, LDLDIRECT, TRIGLYCERIDE GLUCOSE result (most recent): Lab Results Component Value Date/Time GLUCOSE 304 (H) 07/04/2022 11:09 AM Coagulation result (most recent): No results found for: PT, INR, APTT Assessment and Plan: Debility: Continue inpatient comprehensive interdisciplinary rehabilitation to address strengthening, mobility skills, self care, cognitive functioning, speech, communication and swallowing needs. The patient continues to require the interdisciplinary team approach and 24 hour monitoring. CAD, s/p NSTEMI, s/p PCI. Cont asa, metoprolol, statin. Cardiogenic shock Afib: metoprolol, DAPT Acute on chronic systolic CHF: EF 65%: cont lasix, metoprolol, losartan, imdur ESRD, on PD: renal consulted DM: insulin pump at home, resumed per home settings HTN: metoprolol, lasix, clonidine, hydralazine AHRF: pulm toilet, BD prn Dysphagia: resolved, passed MBS 06/21 Severe obsity, BMI 37: encourage weight cessation. DVT Prevention: heparin Pain Management: apap, norco prn Stress ulcer prophylaxis: PPI Bladder management: monitor voiding pattern, monitor bladder scans/PVRs, straight cath per parameters. Bowel management: monitor stooling pattern, continue bowel program adjust laxatives as needed. Code: full F/u: PCP, Aditya Lara MD [phone] Cardiology Endocrinology Srinivsa Jon MD T CYTOLOGIST * Kamryn Browning RN - 07/04/2022 10:30 PM CST Patient has had no falls at this time and is fall risk level/color yellow Interventions in Place: [x] Bed Alarm [] Clip Chair Alarm [] Self-Releasing Belt (a one time order is required) [x] Call Light within reach, return demo by patient completed [] Handoff patient when returning him/her to room [] Wheelchair/Walker out of reach [x] Low Bed [] Mats in Place [] Observation Room [x] Fall Risk Magnet on Door [x] Fall Risk Magnet on Schedule Board [x] Fall Risk Armband on Patient [] Sitter [] Other If patient is a red fall risk, do not leave alone in the bathroom. Patient Education on Medications Education provided Re: Juvenal Daigle This education was provided to the patient Name of medication: all evening meds The education included the following: How to identify their medication, Administering their medication, Understanding the side effects oftheir medication Kamryn Browning RN Received pt A,O X 4.Introduced to pt. Assessed. Peritoneal access on his l side of the abdomen ,Insulin pump is on his upper left side of the abdomen. Bruises noted on her abdomen. V/S checked and blood sugar checked QID. Took all meds,denies any pain. board mixer tender hooked him to the peritoneal machine around 8:15PM. Needs attended to. Hourly rounding,call light within reach and low. T CYTOLOGIST * Filomena Sibley RN - 07/04/2022 8:36 PM CST Patient alert and oriented, timeout completed and consent given for CCPD prior to connection. CCPD Connected at 20:15. Dressing changed per protocol no signs and symptoms of infection on exit site. Report given to primary nurse,CCPD approximate end time is 06:30 next morning. T CYTOLOGIST * Jasmin Bradley MD - 07/04/2022 5:00 PM CST RENAL Orthostatic hypotension during therapy. CCPD changed to 2.5% and 1.5% dianeal half and a half. Lasix dose decreased to daily. Vitals: Vitals: 07/04/22 0547 07/04/22 0700 07/04/22 1558 07/04/22 1944 BP: (!) 154/74 123/70 123/73 (!) 148/79 BP Location: Right arm Right arm Left arm Left arm Patient Position (BP): Supine Supine Sitting Sitting Pulse: (!) 52 (!) 57 67 67 Resp: 18 16 18 18 Temp: 98.1 ??F (36.7 ??C) 98.4 ??F (36.9 ??C) 98.2 ??F (36.8 ??C) 98.1 ??F (36.7 ??C) TempSrc: Oral Oral Oral Oral SpO2: 98% 95% 98% 94% Weight: Height: I&O: Intake/Output Summary (Last 24 hours) at 07/04/2022 2303 Last data filed at 07/04/20222009 Gross per 24 hour Intake 720 ml Output 785 ml Net -65 ml Examination: RRR, CTA Soft, NT , ND BS+ No edema, PD cath exit site clean and dry Skin warm and dry Labs: Lab Results Component Value Date HGB 8.9 (L) 07/04/2022 , Lab Results Component Value Date WBC 4.1 07/04/2022 , Lab Results Component Value Date PLT 323 07/04/2022 , Lab Results Component Value Date NA 134 (L) 07/04/2022 K 4.7 07/04/2022 CL 95 (L) 07/04/2022 CO2 24 07/04/2022 CA 9.1 07/04/2022 BUN 49 (H) 07/04/2022 CREAT 8.63 (H) 07/04/2022 GLUCOSE 304 (H) 07/04/2022 ANIONGAP 15 07/04/2022 , No results found for: IRON, TIBC, FERRITIN, Lab Results Component Value Date [id number] 1,178 06/30/2022 , No results found for: FOLATE, FOLATERBC, Lab Results Component Value Date CA 9.1 07/04/2022 PO4 5.3 (H) 07/01/2022 , Lab Results Component Value Date CREAT 8.63 (H) 07/04/2022 GFR 7 (L) 07/04/2022 , No results found for: RPR, RPRTITER, No results found for: CHOLTOT, HDL, LDLCALC, LDLDIRECT, TRIGLYCERIDE, Lab Results Component Value Date CRP 5.0 (H) 07/04/2022 , Lab Results Component Value Date HEPBSAG Non-reactive 06/30/2022 , Assessment/Plan: Patient Active Hospital Problem List: ESRD on CCPD daily --CCPD use 1.5% and 25% half and half Dianeal with 2.5L dwelling volume. 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 --Short-term colchicine need to be renal dose Hyperparathyroidism, renal osteodystrophy --Vitamin D --Phosphorus binder Renvela Acute hypoxemic respiratory failure, cardiogenic shock pneumonia --Abx --Bronchi dilator --Lasix Gastroesophageal reflux disease without esophagitis (04/24/2018) --Protonix DVT Prophlaxis - Heparin Current Planned Disposition - home Plan discussed with patient; questions answered; patient agrees with current plan. Current Code Status -Full Code Thank you for inviting me to participate the care of this patient, will follow up closely with you. JASMIN BRADLEY MD [facility] Office [phone] T CYTOLOGIST * Maggie Eric LPN - 07/04/2022 4:45 PM CST Patient experienced routine day during this 12-hour shift of this nurse. Exhibiting baseline functioning, activity, & interaction with nursing. Receiving skilled therapies as ordered. Meals &fluids offered as ordered with I & Os documented in flowsheet. Medication administration as documented in MAR. Hourly Rounding Completed This Shift With Safety Monitoring. Any noted exceptions to above statement: Patient continues to have orthostatic hypotension when participating with therapy. Symptomatic--requiring to sit or lay down for majority of therapy sessions.Lasix decreased. Labs obtained today as well. Clonidine patch also discontinued at this time. No other concerns voiced. Patient quiet, appears depressed at times. But pleasant and cooperative with staff. Report given to oncoming nurse. Head-to-toe re-assessment observations documented in flowsheet. Any noted deviations from baseline observed in head-to-toe assessment: none Any abnormal VS requiring intervention or close monitoring: no Patient has had no falls at this time and is fall risk level/color yellow Interventions in Place: [x] Bed Alarm [] Clip Chair Alarm [x] Call Light within reach, return demo by patient completed [] Handoff patient when returning him/her to room [] Wheelchair/Walker out of reach [x] Low Bed [] Mats in Place [x] Fall Risk Magnet on Door [x] Fall Risk Magnet on Schedule Board [x] Fall Risk Armband on Patient [] Sitter [] Other If patient is red fall risk: [] Patient will not be left alone in bathroom [] Self-Releasing Belt (a one time order is required) [] Patient demonstrated ability to release wheelchair alarmed seatbelt. [] Observation Room Patient Education on Medications Maggie Eric LPN T CYTOLOGIST * Srinivas Jon MD - 07/04/2022 12:09 PM CST REHAB/PMA&R DAILY PROGRESS NOTE Date: 07/04/2022 Time: 12:09 PM Subjective: Sleeping and eating ok. He was orthostatic in therapy again today, clonidine patch d/s'd. IM and renal input appreciated. ESRD on PD. Progressing in therapy. Recent labs reviewed. Function status and progress towards rehab goals: PT: ambulated 80-90ft x 1 on level surface and navigating turns requiring min A with WWR and w/c follow. Patient attempted second trial but after 5-6ft complained of dizziness and sat down in w/c. OT: min A-mod A Goals: continue to address his medical stability, orthostasis, strengthening, endurance, balance toreach mod I at dc ELOS: re-eval tomorrow Review of System: No fever, nausea/vomiting, chest pain, or shortness of breath. Exam: BP 123/70 (BP Location: Right arm, Patient Position (BP): Supine) Pulse (!) 57 Temp 98.4 ??F (36.9 ??C) (Oral) Resp 16 Ht 5' 10 (1.778 m) Wt 118.7 kg (261 lb 9.6 oz) SpO2 95% BMI37.54 kg/m?? General appearance: alert, in no distress Skin/sores/incisions: No rashes or lesions; Musculoskeletal: LE edema Neurologic: Mental status: Alert, awake, responsive, oriented to time and place and person, attentive. Language: Fluent, good naming and good repetition. Cranial nerves: Pupils are normal reactive to light EOM: full, normal visual charles No ptosis Normal facial sensation and no facial weakness Normal hearing Muscle strength: 5/5 in UE/LExts proximally and distally bilaterally. Psych: affect is euthymic. Current Medications: Facility-Administered Medications as of 07/04/2022 Medication Dose Frequency Provider Last Rate Last Admin metoprolol tartrate (LOPRESSOR) tablet 12.5 mg 12.5 mg BID Avni Clifford PA furosemide (LASIX) tablet 40 mg 40 mg BID, 7 hours apart Avni Clifford PA tiZANidine (ZANAFLEX) tablet 4 mg 4 mg every 8 hours Avni Clifford PA 4 mg at 07/04/22 0532 [COMPLETED] potassium chloride (KLOR-CON) SR tablet 40 mEq 40 mEq ONE time only Jasmin Bradley MD 40 mEq at 07/03/22 0533 aspirin (ECOTRIN EC) tablet 81 mg 81 mg daily Jasmin Bradley MD 81 mg at 07/04/22 0826 potassium chloride (KLOR-CON) SR tablet 20 mEq 20 mEq daily WITH breakfast Jasmin Bradley MD 20 mEq at109/03/21 0826 darbepoetin genia (ARANESP) 100 mcg/0.5 mL injection 100 mcg 100 mcg every 7 days Jasmin Bradley MD 100mcg at 07/03/22 1005 [COMPLETED] potassium chloride (KLOR-CON) SR tablet 40 mEq 40 mEq ONE time only Avni Clifford PA 40 mEq at 07/01/22 1100 calcium acetate (CALPHRON) tablet 667 mg 667 mg TID BEFORE meals Avni Clifford PA 667 mg at 07/04/22 1109 peg [id number] 1-0.2-0.2 % ophthalmic solution 1 Drop 1 Drop QID Avni Clifford PA 1 Drop at 07/04/22 0827 calcitRIOL (ROCALTROL) capsule 0.25 mcg 0.25 mcg daily Avni Clifford PA 0.25 mcg at 07/04/22 0827 heparin injection 5,000 Units 5,000 Units every 8 hours Avni Clifford PA 5,000 Units at 07/04/22 0532 atorvastatin (LIPITOR) tablet 80 mg 80 mg daily Avni Clifford PA 80 mg at 07/04/22 0826 clopidogreL (PLAVIX) tablet 75 mg 75 mg daily Avni Clifford PA 75 mg at 07/04/22 0826 nitroglycerin (NITROSTAT) tablet 0.4 mg 0.4 mg every 5 minutes PRN Avni Clifford PA [Held by Provider] isosorbide mononitrate (IMDUR) SR 24 hour tablet 30 mg 30 mg daily Avni Clifford PA 30 mg at 06/30/22 0800 [Held by Provider] losartan (COZAAR) tablet 12.5 mg 12.5 mg daily Avni Clifford PA 12.5 mg at 06/30/22 0801 pantoprazole (PROTONIX) tablet 40 mg 40 mg daily Avni Clifford PA 40 mg at 07/04/22 0532 gentamicin (GARAMYCIN) 0.1 % topical ointment daily Avni Clifford PA Given at 07/04/22 0900 naloxone (NARCAN) 0.4 mg/mL injection 0.1 mg 0.1 mg see admin instructions Avni Clifford PA ondansetron (ZOFRAN ODT) tablet 4 mg 4 mg every 6 hours PRN Avni Clifford PA prochlorperazine maleate (COMPAZINE) tablet 10 mg 10 mg every 6 hours PRN Avni Clifford PA albuterol (PROVENTIL,VENTOLIN) 2.5 mg /3 mL (0.083 %) inhalation solution 2.5 mg 2.5 mg resp, every6 hours PRN Avni Clifford PA bisacodyL (DULCOLAX) delayed release tablet 5 mg 5 mg daily PRN Avni Clifford PA bisacodyL (DULCOLAX) rectal suppository 10 mg 10 mg daily PRN Avni Clifford PA aluminum - magnesium - simethicone (MYLANTA) 200-200-20 mg/5 mL oral suspension 30 mL 30 mL every 4hours PRN Avni Clifford PA calcium as carbonate (TUMS) 500 mg (200 mg elemental) chewable tablet 200 mg 200 mg every 4 hours PRN Avni Clifford PA folic acid-Vit B6-Vit B12 (FOLTX) per tablet 1 Tablet 1 Tablet daily Avni Clifford PA 1 Tablet at 07/04/22 0826 dextrose 5% - sodium chloride 0.9% infusion see admin instructions Avni Clifford PA dextrose 50% (D50) syringe 12.5 Gram 12.5 Gram see admin instructions Anvi Clifford PA dextrose 50% (D50) syringe 25 Gram 25 Gram see admin instructions Avni Clifford PA glucagon human recombinant (GLUCAGEN) 1 mg/mL injection 1 mg 1 mg see admin instructions Avni Clifford PA dextrose 50% (D50) syringe 12.5 Gram 12.5 Gram see admin instructions Avni Clifford PA dextrose 50% (D50) syringe 25 Gram 25 Gram see admin instructions Avni Clifford PA glucagon human recombinant (GLUCAGEN) 1 mg/mL injection 1 mg 1 mg see admin instructions Avni Clifford PA insulin aspart pump basal (NovoLOG) 100 unit/mL infusion TID Avni Clifford PA 1.5 Units/hr at 07/04/22 0801 insulin lispro (HumaLOG) variable dose injection QID WITH meals and HS Avni Clifford PA 7.2 Units at 07/03/22 1651 colchicine (COLCRYS) tablet 0.6 mg 0.6 mg every 48 hours Avni Clifford PA 0.6 mg at 07/04/22 0826 doxycycline monohydrate (MONODOX) capsule 50 mg 50 mg every 12 hours (2 times daily) Avni Clifford PA 50 mg at 07/04/22 0830 ezetimibe (ZETIA) tablet 10 mg 10 mg daily Avni Clifford PA 10 mg at 07/04/22 0826 ranolazine ER (RANEXA) SR 12 hour tablet 500 mg 500 mg every 12 hours (2 times daily) Avni Clifford PA 500 mg at 07/04/22 0826 [Held by Provider] hydrALAZINE (APRESOLINE) tablet 100 mg 100 mg every 8 hours Avni Clifford PA cetirizine (ZyrTEC) tablet 5 mg 5 mg daily PRN Avni Clifford PA 5 mg at 06/30/22 0801 [COMPLETED] New Admission Meds - retrieve upon admission every 4 hours Avni Clifford PA Given at 06/29/22 1600 melatonin tablet 6 mg 6 mg daily BEDTIME Avni Clifford PA 6 mg at 07/03/222010 acetaminophen (TYLENOL) tablet 650 mg 650 mg every 6 hours PRN Srinivas Jon MD 650 mg at 06/30/22 0801 HYDROcodone-acetaminophen (NORCO) 5-325 mg per tablet 1 Tablet 1 Tablet every 6 hours PRN Srinivas Jon MD 1 Tablet at 07/04/22 1108 Data: UA result (most recent): Lab Results Component Value Date/Time PHUA 5.0 06/30/2022 02:55 PM SGUR 1.024 06/30/2022 02:55 PM URINELEUKOC Negative 06/30/2022 02:55 PM NITRITEUA Negative 06/30/2022 02:55 PM KETONEURINE Negative 06/30/2022 02:55 PM PROTEINUA Negative 06/30/2022 02:55 PM GLUUA 2+ (A) 06/30/2022 02:55 PM BLOODUA Negative 06/30/2022 02:55 PM Urine Random Protein result: No results found for: PROTEINUR CBC result (most recent): Lab Results Component Value Date/Time WBC 3.7 (L) 07/03/2022 05:44 AM HGB 8.8 (L) 07/03/2022 05:44 AM HCT 27.7 (L) 07/03/2022 05:44 AM PLT 368 (H) 07/03/2022 05:44 AM MCV 93.9 07/03/2022 05:44 AM BMP result (most recent): Lab Results Component Value Date/Time NA 137 07/03/2022 05:44 AM K 3.4 (L) 07/03/2022 05:44 AM CL 96 (L) 07/03/2022 05:44 AM CO2 25 07/03/2022 05:44 AM CA 9.4 07/03/2022 05:44 AM BUN 46 (H) 07/03/2022 05:44 AM CREAT 8.80 (H) 07/03/2022 05:44 AM GLUCOSE 113 (H) 07/03/2022 05:44 AM ANIONGAP 16 07/03/2022 05:44 AM CMP result (most recent): Lab Results Component Value Date/Time NA 137 07/03/2022 05:44 AM K 3.4 (L) 07/03/2022 05:44 AM CL 96 (L) 07/03/2022 05:44 AM CO2 25 07/03/2022 05:44 AM CA 9.4 07/03/2022 05:44 AM BUN 46 (H) 07/03/2022 05:44 AM CREAT 8.80 (H) 07/03/2022 05:44 AM GLUCOSE 113 (H) 07/03/2022 05:44 AM TOTALPROTEIN 6.3 (L) 07/03/2022 05:44 AM ALBUMIN 3.1 (L) 07/03/2022 05:44 AM BILITOTAL 0.3 07/03/2022 05:44 AM ALKPHOS 105 07/03/2022 05:44 AM AST 38 07/03/2022 05:44 AM ALT 38 07/03/2022 05:44 AM ANIONGAP 16 07/03/2022 05:44 AM LIPID panel result (most recent): No results found for: CHOLTOT, HDL, LDLCALC, LDLDIRECT, TRIGLYCERIDE GLUCOSE result (most recent): Lab Results Component Value Date/Time GLUCOSE 113 (H) 07/03/2022 05:44 AM Coagulation result (most recent): No results found for: PT, INR, APTT Assessment and Plan: Debility: Continue inpatient comprehensive interdisciplinary rehabilitation to address strengthening, mobility skills, self care, cognitive functioning, speech, communication and swallowing needs. The patient continues to require the interdisciplinary team approach and 24 hour monitoring. CAD, s/p NSTEMI, s/p PCI. Cont asa, metoprolol, statin. Cardiogenic shock Afib: metoprolol, DAPT Acute on chronic systolic CHF: EF 65%: cont lasix, metoprolol, losartan, imdur ESRD, on PD: renal consulted DM: insulin pump at home, resumed per home settings HTN: metoprolol, lasix, clonidine, hydralazine AHRF: pulm toilet, BD prn Dysphagia: resolved, passed MBS 06/21 Severe obsity, BMI 37: encourage weight cessation. DVT Prevention: heparin Pain Management: apap, norco prn Stress ulcer prophylaxis: PPI Bladder management: monitor voiding pattern, monitor bladder scans/PVRs, straight cath per parameters. Bowel management: monitor stooling pattern, continue bowel program adjust laxatives as needed. Code: full F/u: PCP, Aditya Lara MD [phone] Cardiology Endocrinology Srinivas Jon MD T CYTOLOGIST * Conrad Dumont MD - 07/04/2022 11:20 AM CST Images from the original note were not included. Internal Medicine/Rehabilitation Service Patient: Juvenal Daigle Date of : 1970 Admission Date: (06/29/2022) Vitals With Comments 07/04/2022 0700 07/04/2022 0547 07/03/2022 1900 07/03/2022 1800 BP: 123/70 154/74 142/70 -- Pulse: 57 52 63 -- Resp: 16 18 18 -- Temp: 98.4 ??F (36.9 ??C) 98.1 ??F (36.7 ??C) 98.2 ??F (36.8 ??C) -- Temp src: Oral Oral Oral -- SpO2: 95 % 98 % 92 % -- Weight: -- -- -- 118.7 kg (261 lb 9.6 oz) DIET DIABETIC 2GM Sodium (Low), Full Code BIPAP settings. Timeline (including subjective): 07/04/2022- Pt with ongoing PD HS. Pt with soft BPs and will d/c clonidine patch and decrease BB. Pt with ongoing BGL mx via pump. Management of vital signs ongoing and significant. Will assess dailyin order to observe improvements. Patient is motivated to get better and is making gains each day. Patient poses reasonable probability for potential of complications. Will continue to optimize. Labsreviewed. Continue to offer elyte derangement mx. 07/02/22- Patient states he feels better. He thinks his pain medicine improves his overall pain perception versus the muscle relaxant. Will increase his muscle relaxant and follow outcomes. Patient states that he feels better as his BPs are slightly higher than previous as he was feeling markedly dizzy with any type of activity. T-max overnight was 99 ??F. PD management continues. Cdeue-qa-wsac glucoses are elevated patient is following endocrine's protocol. Labs tomorrow. complex care continues. Appreciate nephrology following along- continue course 07/01/22- Patient appears improved clinically since admission. His skin tone is improved as well. Ongoing PD management continues per nephrology. T-max overnight was 99.3 and has since resolved to afebrile status, pulse rates ideal, tolerating room air. P.o. intake is improved since admission. Labsthis morning show white blood cell count 3.5, hematocrit 26.9, sodium 131, potassium 3.3, creatinine 9.56, phosphorus of 5.3. Nephrology is following along and continue to follow formal recommendations. Will offer Klor-Con x1 and follow outcomes. Continue to hold his BP meds as the patch is workingand will start to reintroduce multiple medications if necessary in the acute rehab process. Patient's insulin pump is running low and waiting for family to bring in insulin to refill. Continue course. 06/30/22- Patient notes that he was very uncomfortable with sleep last night. He said his whole body hurt . Patient was offered pain regime per PMR MD. Will offer muscle relaxant as likely related to tone and spasm. Patient apparently is running out of his insulin in his insulin pump. Will offer him long-acting and short acting as directed once his insulin pump has stopped. He has at least 12 more hours of long-acting insulin per his report. We will continue sliding scale short acting insulin as his family apparently will bring in his home supply to refill his pump. PD continues and patient should have catheter care at PD exit site with antibiotic. Patient with chest x-ray that shows some form of pneumonia. We will offer a sputum culture induced by respiratory services to send for sample. Patient has been scheduled and tested for multiple COVID tests and have been negative. Ongoing care continues complex management and medical supervision is highly crucial and indicated. 06/29/2022 - Admission to [facility] - (Admission Data below). DAPT on ASA and Plavix. Pt appears ill. Pt with PD cath and DM pump. Discussed care at length with bedside RN and RESPlead. On going aggressive medical mgt continues to optimize pt for continued success in the comprehensive rehab course. Complex needs are noted. Reviewed extensive records from [facility] and daughter says BIPAP settings. 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 Anemia of chronic renal failure, stage 4 (severe) Hyperlipidemia- HCTZ, HTN (hypertension) Diabetes mellitus BEN (obstructive sleep apnea) Gout Congestive heart failure Hypertensive kidney disease with end-stage renal disease ESRD (end stage renal disease) Diabetic peripheral neuropathy Ketoacidosis due to type 1 diabetes mellitus Stage 5 chronic kidney disease Right upper quadrant pain Proliferative diabetic retinopathy associated with type 2 diabetes mellitus Pre-transplant evaluation for kidney transplant History of coronary artery stent placement History of deep vein thrombosis Hypersomnia Gastritis Gastroesophageal reflux disease without esophagitis Dystrophia unguium Dysphagia- ZINC PLATER to assess and follow Cardiogenic shock Anemia in chronic kidney disease Acute on chronic HFrEF (heart failure with reduced ejection fraction) Abnormal cardiovascular stress test Acute hypoxemic respiratory failure DVT PRX: Heparin, SCDS Electrolyte derangement-Bind and Replenish Anemia-Follow H/H. Transfuse when clinically indicated Pain Control- titration throughout acute inpatient rehab process Nausea-Zofran prn Constipation-Bowel Regimen, follow output daily Polypharmacy-Follow. Medications fully reconciled Vitamin deficiency-Supplement Nursing Instructions: Incentive spirometry, I/O's, Vitals every 8 hours, Nutrition and ADLs Record Review: moderate Old medical records, labs, preadmission screening, previous radiology studies. Nutritional support and Blood sugar management - encourage adequate diet, caloric intake, fluid balance Avoid hypoglycemia Medication Profile: Allergies Allergen Reactions Allopurinol Shortness of Breath/Wheezing and Other (See Comments) Shuts my kidneys down per patient. Chlorhexidine Other (See Comments) Skin peels all over and becomes tender Iodinated Contrast Media Rash Ticagrelor Rash Scheduled Medication Profile: Facility-Administered Medications as of 07/04/2022 Medication Dose Frequency Provider Last Rate Last Admin metoprolol tartrate (LOPRESSOR) tablet 12.5 mg 12.5 mg BID Avni Clifford PA furosemide (LASIX) tablet 40 mg 40 mg BID, 7 hours apart Avni Clifford PA tiZANidine (ZANAFLEX) tablet 4 mg 4 mg every 8 hours Avni Clifford PA 4 mg at 07/04/22 0532 [COMPLETED] potassium chloride (KLOR-CON) SR tablet 40 mEq 40 mEq ONE time only Jasmin Bradley MD 40 mEq at 07/03/22 0533 aspirin (ECOTRIN EC) tablet 81 mg 81 mg daily Jasmin Bradley MD 81 mg at 07/04/22 0826 potassium chloride (KLOR-CON) SR tablet 20 mEq 20 mEq daily WITH breakfast Jasmin Bradley MD 20 mEq at109/03/21 0826 darbepoetin genia (ARANESP) 100 mcg/0.5 mL injection 100 mcg 100 mcg every 7 days Jasmin Bradley MD 100mcg at 07/03/22 1005 [COMPLETED] potassium chloride (KLOR-CON) SR tablet 40 mEq 40 mEq ONE time only Avni Clifford PA 40 mEq at 07/01/22 1100 calcium acetate (CALPHRON) tablet 667 mg 667 mg TID BEFORE meals Avni Clifford PA 667 mg at 07/04/22 1109 peg [id number] 1-0.2-0.2 % ophthalmic solution 1 Drop 1 Drop QID Avni Clifford PA 1 Drop at 07/04/22 0827 calcitRIOL (ROCALTROL) capsule 0.25 mcg 0.25 mcg daily Avni Clifford PA 0.25 mcg at 07/04/22 0827 heparin injection 5,000 Units 5,000 Units every 8 hours Avni Clifford PA 5,000 Units at 07/04/22 0532 atorvastatin (LIPITOR) tablet 80 mg 80 mg daily Avni Clifford PA 80 mg at 07/04/22 0826 clopidogreL (PLAVIX) tablet 75 mg 75 mg daily Avni Clifford PA 75 mg at 07/04/22 0826 nitroglycerin (NITROSTAT) tablet 0.4 mg 0.4 mg every 5 minutes PRN Avni Clifford PA [Held by Provider] isosorbide mononitrate (IMDUR) SR 24 hour tablet 30 mg 30 mg daily Avni Clifford PA 30 mg at 06/30/22 0800 [Held by Provider] losartan (COZAAR) tablet 12.5 mg 12.5 mg daily Avni Clifford PA 12.5 mg at 06/30/22 0801 pantoprazole (PROTONIX) tablet 40 mg 40 mg daily Avni Clifford PA 40 mg at 07/04/22 0532 gentamicin (GARAMYCIN) 0.1 % topical ointment daily Avni Clifford PA Given at 07/04/22 0900 naloxone (NARCAN) 0.4 mg/mL injection 0.1 mg 0.1 mg see admin instructions Avni Clifford PA ondansetron (ZOFRAN ODT) tablet 4 mg 4 mg every 6 hours PRN Avni Clifford PA prochlorperazine maleate (COMPAZINE) tablet 10 mg 10 mg every 6 hours PRN Avni Clifford PA albuterol (PROVENTIL,VENTOLIN) 2.5 mg /3 mL (0.083 %) inhalation solution 2.5 mg 2.5 mg resp, every6 hours PRN Avni Clifford PA bisacodyL (DULCOLAX) delayed release tablet 5 mg 5 mg daily PRN Avni Clifford PA bisacodyL (DULCOLAX) rectal suppository 10 mg 10 mg daily PRN Avni Clifford PA aluminum - magnesium - simethicone (MYLANTA) 200-200-20 mg/5 mL oral suspension 30 mL 30 mL every 4hours PRN Avni Clifford PA calcium as carbonate (TUMS) 500 mg (200 mg elemental) chewable tablet 200 mg 200 mg every 4 hours PRN Avni Clifford PA folic acid-Vit B6-Vit B12 (FOLTX) per tablet 1 Tablet 1 Tablet daily Avni Clifford PA 1 Tabletat 07/04/22 08 dextrose 5% - sodium chloride 0.9% infusion see admin instructions Avni Clifford PA dextrose 50% (D50) syringe 12.5 Gram 12.5 Gram see admin instructions Avni Clifford PA dextrose 50% (D50) syringe 25 Gram 25 Gram see admin instructions Avni Clifford PA glucagon human recombinant (GLUCAGEN) 1 mg/mL injection 1 mg 1 mg see admin instructions Avni Clifford PA dextrose 50% (D50) syringe 12.5 Gram 12.5 Gram see admin instructions Avni Clifford PA dextrose 50% (D50) syringe 25 Gram 25 Gram see admin instructions Avni Clifford PA glucagon human recombinant (GLUCAGEN) 1 mg/mL injection 1 mg 1 mg see admin instructions Avni Clifford PA insulin aspart pump basal (NovoLOG) 100 unit/mL infusion TID Avni Clifford PA 1.5 Units/hr at 07/04/22 08 insulin lispro (HumaLOG) variable dose injection QID WITH meals and HS Avni Clifford PA 7.2 Units at 07/03/22 1651 colchicine (COLCRYS) tablet 0.6 mg 0.6 mg every 48 hours Avni Clifford PA 0.6 mg at 07/04/22 08 doxycycline monohydrate (MONODOX) capsule 50 mg 50 mg every 12 hours (2 times daily) Avni Clifford PA 50 mg at 07/04/22 0830 ezetimibe (ZETIA) tablet 10 mg 10 mg daily Avni Clifford PA 10 mg at 07/04/22 08 ranolazine ER (RANEXA) SR 12 hour tablet 500 mg 500 mg every 12 hours (2 times daily) Avni Clifford PA 500 mg at 07/04/22 08 [Held by Provider] hydrALAZINE (APRESOLINE) tablet 100 mg 100 mg every 8 hours Avni Clifford PA cetirizine (ZyrTEC) tablet 5 mg 5 mg daily PRN Avni Clifford PA 5 mg at 06/30/22 08 [COMPLETED] New Admission Meds - retrieve upon admission every 4 hours Avni Clifford PA Given at 06/29/22 1600 melatonin tablet 6 mg 6 mg daily BEDTIME Avni Clifford PA 6 mg at 07/03/222010 acetaminophen (TYLENOL) tablet 650 mg 650 mg every 6 hours PRN Srinivas Jon MD 650 mg at 06/30/22 0801 HYDROcodone-acetaminophen (NORCO) 5-325 mg per tablet 1 Tablet 1 Tablet every 6 hours PRN Srinivas Jon MD 1 Tablet at 07/04/22 1108 Admission Data : CC: Debility/Cardiogenic shock/HTN HPI: Juvenal Daigle is a 51 y.o. male who recently has been admitted to [facility] for comprehensive rehabilitation - multiple complex medical issues will impact medical management throughout the acute inpatient rehabilitation process. Pt has a significant medical history including but not limited to CHF- EF 50%, Afib, HTN, CAD, T1DM, ESRD on PD, HLD, GERD, hyperparathyroidism, DDD, OA, gout, BEN on CPAP, who initially presented to [facility] for n/v, onset three days, with associated chest pain, generalized weakness, chills, ROONEY. Symptoms were relieved with sublingual ntg. His labs were notable for trop 1.0-->1.09-->0.729, BNP 39783. He had a CT CAP showing cholelithiasis and likely PNA. RUQUS showed distended gallbladder with gallstones and gallbladder wall thickening, recommend ed HIDA scan. He was treated with ctx/azithromycin. Pt was started on a heparin gtt. Cath on 06/03 showed previous PCI to proximal and distal right coronary patent, 99% ostial circumflex stenosis as well as 90% circumflex lesion after origin of largest OM branch, mild diffuse disease in LAD which does not appear to be flow limiting. Pt was recommended PCI of left circumflex as optimal treatment. Pt was transfered to [facility] on 06/05. Upon arrival EKG showed sinus bradycardia, 1st deg AV block. ACT was called for substernal chest pressure and hypoxemia, he was placed on BiPAP with improvement in oxygen saturation and transferred to the MICU, where he was placed on AVAPS. CXR showed significantly worsened pulmonary edema. Trop 4797 -> 4266 in the MICU, EKG was unchanged. Pt was started onmero for cholecystitis. He was continued on heparin gtt, started on nitro gtt for BP control and O2was weaned to nasal cannula. Pt underwent complex PCI 06/07, PCI revealed ostial circ lesion of 90%, large OM with 70% narrowing. Patient became hypotensive and hypoxemic requiring levo and epi gtt. The patient was intubated. The left dominant circumflex and OM were then stented. Impella was inserted. A swan liv catheter and L IJ trialysis were also placed. Impella was weaned slowly and removed 06/10. Pressors and vent settings were weaned slowly, and patient was ultimately extubated on 06/20.Passed MBS and was started on a PO DM diet. Pt is tolerating well. Pt is participating in therapy and is able to tolerate 3hrs of therapy a day. Pt has been deemed medically stable and appropriate for comprehensive rehab. PMR MD to have formal referral placed. Past Medical History: Diagnosis Date Amplified musculoskeletal pain Diabetes mellitus Heart attack 04/14/2017 HTN (hypertension) Hyperlipidemia Thromboembolism Past Surgical History: Procedure Laterality Date HX ANGIOPLASTY N/A 04/17/2017 Family history Non contributory Social History Tobacco Use Smoking status: Never Smokeless tobacco: Never Substance Use Topics Alcohol use: No Drug use: No reports that he has never smoked. He has never used smokeless tobacco. He reports that he does not drink alcohol and does not use drugs. Review of Systems: No new fever or chills, worsening cough or colds, chest pain No new abdominal pain, heat or cold intolerance + fatigue, cough, weakness, Objective Data: Vitals With Comments 07/04/2022 0700 07/04/2022 0547 07/03/2022 1900 07/03/2022 1800 BP: 123/70 154/74 142/70 -- Pulse: 57 52 63 -- Resp: -- Temp: 98.4 ??F (36.9 ??C) 98.1 ??F (36.7 ??C) 98.2 ??F (36.8 ??C) -- Temp src: Oral Oral Oral -- SpO2: 95 % 98 % 92 % -- Weight: -- -- -- 118.7 kg (261 lb 9.6 oz) 07/04 0700 - 07/04 1859 In: 240 [P.O.:240] Out: - General alert, awake, no cardiopulmonary distress, weakness Lungs Decreased breath sounds at bases Heart regular rate and rhythm Abdomen soft, non-tender, with bowel sounds, + PD cath, + DM pump Extremities pulses noted, no cyanosis Labs ordered and awaiting results - CBC result (most recent): Lab Results Component Value Date/Time WBC 3.7 (L) 07/03/2022 05:44 AM HGB 8.8 (L) 07/03/2022 05:44 AM HCT 27.7 (L) 07/03/2022 05:44 AM PLT 368 (H) 07/03/2022 05:44 AM MCV 93.9 07/03/2022 05:44 AM BMP result (most recent): Lab Results Component Value Date/Time NA 137 07/03/2022 05:44 AM K 3.4 (L) 07/03/2022 05:44 AM CL 96 (L) 07/03/2022 05:44 AM CO2 25 07/03/2022 05:44 AM CA 9.4 07/03/2022 05:44 AM BUN 46 (H) 07/03/2022 05:44 AM CREAT 8.80 (H) 07/03/2022 05:44 AM GLUCOSE 113 (H) 07/03/2022 05:44 AM ANIONGAP 16 07/03/2022 05:44 AM CMP result (most recent): Lab Results Component Value Date/Time NA 137 07/03/2022 05:44 AM K 3.4 (L) 07/03/2022 05:44 AM CL 96 (L) 07/03/2022 05:44 AM CO2 25 07/03/2022 05:44 AM CA 9.4 07/03/2022 05:44 AM BUN 46 (H) 07/03/2022 05:44 AM CREAT 8.80 (H) 07/03/2022 05:44 AM GLUCOSE 113 (H) 07/03/2022 05:44 AM TOTALPROTEIN 6.3 (L) 07/03/2022 05:44 AM ALBUMIN 3.1 (L) 07/03/2022 05:44 AM BILITOTAL 0.3 07/03/2022 05:44 AM ALKPHOS 105 07/03/2022 05:44 AM AST 38 07/03/2022 05:44 AM ALT 38 07/03/2022 05:44 AM ANIONGAP 16 07/03/2022 05:44 AM HEPATIC function panel result (most recent): Lab Results Component Value Date/Time ALT 38 07/03/2022 05:44 AM AST 38 07/03/2022 05:44 AM ALKPHOS 105 07/03/2022 05:44 AM Hemoglobin A1C result (most recent): No results found for: HGBA1C, [id number] LIPID panel result (most recent): No results found for: CHOLTOT, HDL, LDLCALC, LDLDIRECT, TRIGLYCERIDE UA results do not (most recent): Lab Results Component Value Date/Time PHUA 5.0 06/30/2022 02:55 PM SGUR 1.024 06/30/2022 02:55 PM URINELEUKOC Negative 06/30/2022 02:55 PM NITRITEUA Negative 06/30/2022 02:55 PM KETONEURINE Negative 06/30/2022 02:55 PM PROTEINUA Negative 06/30/2022 02:55 PM GLUUA 2+ (A) 06/30/2022 02:55 PM BLOODUA Negative 06/30/2022 02:55 PM CULTURE Date Value Ref Range Status 06/30/2022 <10,000 cfu/mL Staphylococcus epidermidis (A) Final Comment: No further workup indicated. No results found for this or any previous visit. Hospitalist Statement: The Internal Medicine team participates in patient care to directly impact the acute rehabilitationprocess. Daily rounds include discussion of I and Os, avoiding hypotension and hypoglycemia. Daily medication review completed. Ongoing efforts to coordinate care, maintain euvolemia, adequate nutrition, electrolyte management, appropriate BP management, overall stability, and management of co-morbidites individually are being dictated by clinical progress. Documentation partially completed using dictation services and EMR. Please excuse any typographicalerrors that may have occurred. LESLY Ayala MD Internal Medicine Director // T CYTOLOGIST * Tiffanie Aiken LPN - 07/04/2022 5:52 AM CST Received bedside report from Marla ROLAND and assumed care of Pt at 1845. Meds given per MAR, VSS. PD running overnight, tolerated well and removed at 0500. Pain well controlled, slept well with no acutechanges overnight. See flowsheet for assessment details. Safety/fall prevention interventions in place, will continue to monitor and report to oncoming nurse. Patient has had no falls at this time and is fall risk level/color yellow Interventions in Place: [x] Bed Alarm [] Clip Chair Alarm [] Self-Releasing Belt (a one time order is required) [x] Call Light within reach, return demo by patient completed [] Handoff patient when returning him/her to room [x] Wheelchair/Walker out of reach [] Low Bed [] Mats in Place [] Observation Room [x] Fall Risk Magnet on Door [x] Fall Risk Magnet on Schedule Board [x] Fall Risk Armband on Patient [] Sitter [] Other Patient Education on Medications Education provided Re: Juvenal Pilo This education was provided to the Patient Name of medication: All due meds The education included the following: How to identify their medication, Administering their medication, Storage of their medication, Understanding the side effects of their medication Tiffanie Aiken LPN T CYTOLOGIST * Jasmin Bradley MD - 07/03/2022 5:00 PM CST RENAL Mildly dizzy while standing. Clonidine was stopped. No SOB or SOB. No edema. K is still low and hadKCl 40 meq last night and 20 meq qd. CCPD doing well w/o edema or SOB. Will change to 1.5% and 2.5%half to half on PD to give some volume. Check daily weight. Vitals: Vitals: 07/03/22 0730 07/03/22 1603 07/03/22 1800 07/03/22 1900 BP: 116/71 (!) 144/65 (!) 142/70 BP Location: Right arm Left arm Right arm Patient Position (BP): Supine Supine Supine Pulse: 63 63 63 Resp: 16 16 18 Temp: 98.1 ??F (36.7 ??C) 98.2 ??F (36.8 ??C) TempSrc: Oral Oral SpO2: 97% 96% 92% Weight: 118.7 kg (261 lb 9.6 oz) Height: I&O: Intake/Output Summary (Last 24 hours) at 07/03/2022 2344 Last data filed at 07/03/20222000 Gross per 24 hour Intake 1920 ml Output -- Net 1920 ml Examination: RRR, CTA Soft, NT , ND BS+ No edema, PD cath exit site clean and dry Skin warm and dry Labs: Lab Results Component Value Date HGB 8.8 (L) 07/03/2022 , Lab Results Component Value Date WBC 3.7 (L) 07/03/2022 , Lab Results Component Value Date PLT 368 (H) 07/03/2022 , Lab Results Component Value Date NA 137 07/03/2022 K 3.4 (L) 07/03/2022 CL 96 (L) 07/03/2022 CO2 25 07/03/2022 CA 9.4 07/03/2022 BUN 46 (H) 07/03/2022 CREAT 8.80 (H) 07/03/2022 GLUCOSE 113 (H) 07/03/2022 ANIONGAP 16 07/03/2022 , No results found for: IRON, TIBC, FERRITIN, Lab Results Component Value Date [id number] 1,178 06/30/2022 , No results found for: FOLATE, FOLATERBC, Lab Results Component Value Date CA 9.4 07/03/2022 PO4 5.3 (H) 07/01/2022 , Lab Results Component Value Date CREAT 8.80 (H) 07/03/2022 GFR 7 (L) 07/03/2022 , No results found for: RPR, RPRTITER, No results found for: CHOLTOT, HDL, LDLCALC, LDLDIRECT, TRIGLYCERIDE, Lab Results Component Value Date CRP 6.3 (H) 07/03/2022 , Lab Results Component Value Date HEPBSAG Non-reactive 06/30/2022 , Assessment/Plan: Patient Active Hospital Problem List: ESRD on CCPD daily --CCPD use 1.55 and 25% half and half Dianeal with 2.5L dwelling volume. 5 exchange for total 10.5 hrs, with no last refill because [facility] has no purple bag --Gentamicin cream and dressing change to PD catheter sites --K 3.3 and give 40 meq KCl x 1 last night then 20 meq qd --Avoid hypotension --Avoid all nephrotoxins HLD, CAD, AMI, Acute on chronic HFrEF (heart failure with reduced ejection fraction), cardiogenic shock, s/p stenting< A Fib --Lipitor --ASA --Plavix --Lasix 80 mg bid --Imdur 30 mg qd --Metoprolol 25 mg bid -- Ranexa 500 mg bid Anemia of chronic renal failure --Keep Fe% > 30% --Nephrocaps --Aranesp --Transfusion as needed if hemoglobin less than 8 Chronic 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 --Short-term colchicine need to be renal dose Hyperparathyroidism, renal osteodystrophy --Vitamin D --Phosphorus binder Renvela Acute hypoxemic respiratory failure, cardiogenic shock pneumonia --Abx --Bronchi dilator --Lasix Gastroesophageal reflux disease without esophagitis (04/24/2018) --Protonix DVT Prophlaxis - Heparin Current Planned Disposition - home Plan discussed with patient; questions answered; patient agrees with current plan. Current Code Status -Full Code Thank you for inviting me to participate the care of this patient, will follow up closely with you. JASMIN BRADLEY MD [facility] Office [phone] T CYTOLOGIST * Leonela Lantigua RN - 07/03/2022 4:10 PM CST Bedside report completed. Pt resting in bed. Pt participated in therapy today. Had bmx 2. No compl to PD site states no compl with last night tx. This am before breakfast his omnipod read 85 and he requested OJ and breakfast was served. At 10:10 Bg was 305 per Omnipod and 7.4 units was given per pt. At 11:10 am pt changed out his omnipod and filled the new one with 200units insulin. Site changed to [facility] . No compl noted to the old site. Rate was 0.8/hr. BG at 11:22 per our meter 316. At 12:16 bgwas 370 per pt meter and he gave himself 10.35units . Rate was 0.8units/hr.pt spent the afternoon up in [facility] with legs elevated. This afternoon pt c/o sore on his buttocks he had at [facility]. Picture taken and camo/mepilex applied. No c/o pain. For dinner BG per our meter 368 at 4:31pm. At 4:51pm pt meter BG 373.Rate 0.8units per hr. Pt gave 7.2 units per Omnipod. At end of shift Dialysis nurse here setting up nightly PD. T CYTOLOGIST * Srinivas Jon MD - 07/03/2022 1:15 PM CST REHAB/PMA&R DAILY PROGRESS NOTE Date: 07/03/2022 Time: 1:15 PM Subjective: Slept. Eating ok. He says his lightheadedness is getting better- he is very pleased with that. VSS. IM and renal input appreciated. ESRD on PD. Progressing in therapy. Labs reviewed, K supplemented. Function status and progress towards rehab goals: PT: mainly min A OT: min A-mod A Goals: continue to address his medical stability, orthostasis, strengthening, endurance, balance toreach mod I at ma ELOS: re-eval on Mon. Review of System: No fever, nausea/vomiting, chest pain, or shortness of breath. Exam: BP 124/62 (BP Location: Right arm, Patient Position (BP): Supine) Pulse (!) 59 Temp 97.9 ??F (36.6 ??C) (Oral) Resp 18 Ht 5' 10 (1.778 m) Wt 117.7 kg (259 lb 6.4 oz) SpO2 95% BMI37.22 kg/m?? General appearance: alert, in no distress Skin/sores/incisions: No rashes or lesions; Musculoskeletal: LE edema Neurologic: Mental status: Alert, awake, responsive, oriented to time and place and person, attentive. Language: Fluent, good naming and good repetition. Cranial nerves: Pupils are normal reactive to light EOM: full, normal visual charles No ptosis Normal facial sensation and no facial weakness Normal hearing Muscle strength: 5/5 in UE/LExts proximally and distally bilaterally. Psych: affect is euthymic. Current Medications: Facility-Administered Medications as of 07/03/2022 Medication Dose Frequency Provider Last Rate Last Admin tiZANidine (ZANAFLEX) tablet 4 mg 4 mg every 8 hours Avni Clifford PA 4 mg at 07/03/22 1243 [COMPLETED] potassium chloride (KLOR-CON) SR tablet 40 mEq 40 mEq ONE time only Jasmin Bradley MD 40 mEq at 07/03/22 0533 aspirin (ECOTRIN EC) tablet 81 mg 81 mg daily Jasmin Bradley MD 81 mg at 07/03/22 0746 potassium chloride (KLOR-CON) SR tablet 20 mEq 20 mEq daily WITH breakfast Jasmin Bradley MD 20 mEq at109/02/21 0746 darbepoetin genia (ARANESP) 100 mcg/0.5 mL injection 100 mcg 100 mcg every 7 days Jasmin Bradley MD 100mcg at 07/03/22 1005 [COMPLETED] potassium chloride (KLOR-CON) SR tablet 40 mEq 40 mEq ONE time only Avni Clifford PA 40 mEq at 07/01/22 1100 calcium acetate (CALPHRON) tablet 667 mg 667 mg TID BEFORE meals vAni Clifford PA 667 mg at 07/03/22 1215 peg 024-[id number] 1-0.2-0.2 % ophthalmic solution 1 Drop 1 Drop QID Avni Clifford PA 1 Drop at 07/03/22 1243 calcitRIOL (ROCALTROL) capsule 0.25 mcg 0.25 mcg daily Avni Clifford PA 0.25 mcg at 07/03/22 0747 heparin injection 5,000 Units 5,000 Units every 8 hours Avni Clifford PA 5,000 Units at 07/03/22 1243 atorvastatin (LIPITOR) tablet 80 mg 80 mg daily Avni Clifford PA 80 mg at 07/03/22 0747 clopidogreL (PLAVIX) tablet 75 mg 75 mg daily Avni Clifford PA 75 mg at 07/03/22 0748 nitroglycerin (NITROSTAT) tablet 0.4 mg 0.4 mg every 5 minutes PRN Avni Clifford PA [Held by Provider] isosorbide mononitrate (IMDUR) SR 24 hour tablet 30 mg 30 mg daily Avni Clifford PA 30 mg at 06/30/22 0800 [Held by Provider] losartan (COZAAR) tablet 12.5 mg 12.5 mg daily Avni Clifford PA 12.5 mg at 06/30/22 0801 pantoprazole (PROTONIX) tablet 40 mg 40 mg daily Avni Clifford PA 40 mg at 07/03/22 0534 metoprolol tartrate (LOPRESSOR) tablet 25 mg 25 mg BID Avni Clifford PA 25 mg at 07/03/22 0747 gentamicin (GARAMYCIN) 0.1 % topical ointment daily Avni Clifford PA Given at 07/01/22 1700 naloxone (NARCAN) 0.4 mg/mL injection 0.1 mg 0.1 mg see admin instructions Avni Clifford PA ondansetron (ZOFRAN ODT) tablet 4 mg 4 mg every 6 hours PRN Avni Clifford PA prochlorperazine maleate (COMPAZINE) tablet 10 mg 10 mg every 6 hours PRN Avni Clifford PA albuterol (PROVENTIL,VENTOLIN) 2.5 mg /3 mL (0.083 %) inhalation solution 2.5 mg 2.5 mg resp, every6 hours PRN Avni Clifford PA bisacodyL (DULCOLAX) delayed release tablet 5 mg 5 mg daily PRN vAni Clifford PA bisacodyL (DULCOLAX) rectal suppository 10 mg 10 mg daily PRN Avni Clifford PA aluminum - magnesium - simethicone (MYLANTA) 200-200-20 mg/5 mL oral suspension 30 mL 30 mL every 4hours PRN Avni Clifford PA calcium as carbonate (TUMS) 500 mg (200 mg elemental) chewable tablet 200 mg 200 mg every 4 hours PRN Avni Clifford PA folic acid-Vit B6-Vit B12 (FOLTX) per tablet 1 Tablet 1 Tablet daily Avni Clifford PA 1 Tablet at 07/03/22 0746 dextrose 5% - sodium chloride 0.9% infusion see admin instructions Avni Clifford PA dextrose 50% (D50) syringe 12.5 Gram 12.5 Gram see admin instructions Avni Clifford PA dextrose 50% (D50) syringe 25 Gram 25 Gram see admin instructions Avni Clifford PA glucagon human recombinant (GLUCAGEN) 1 mg/mL injection 1 mg 1 mg see admin instructions Avni Clifford PA dextrose 50% (D50) syringe 12.5 Gram 12.5 Gram see admin instructions Avni Clifford PA dextrose 50% (D50) syringe 25 Gram 25 Gram see admin instructions Avni Clifford PA glucagon human recombinant (GLUCAGEN) 1 mg/mL injection 1 mg 1 mg see admin instructions Avni Clifford PA insulin aspart pump basal (NovoLOG) 100 unit/mL infusion TID Avni Clifford PA 1.7 Units/hr at 07/03/22 0801 insulin lispro (HumaLOG) variable dose injection QID WITH meals and HS Avni Clifford PA 10.35 Units at 07/03/22 1216 colchicine (COLCRYS) tablet 0.6 mg 0.6 mg every 48 hours Avni Clifford PA 0.6 mg at 07/02/22 0755 doxycycline monohydrate (MONODOX) capsule 50 mg 50 mg every 12 hours (2 times daily) Avni Clifford PA 50 mg at 07/03/22 0747 furosemide (LASIX) tablet 80 mg 80 mg BID, 7 hours apart Avni Clifford PA 80 mg at 07/03/22 0747 ezetimibe (ZETIA) tablet 10 mg 10 mg daily Avni Clifford PA 10 mg at 07/03/22 0746 ranolazine ER (RANEXA) SR 12 hour tablet 500 mg 500 mg every 12 hours (2 times daily) Avni Clifford PA 500 mg at 07/03/22 0748 [Held by Provider] hydrALAZINE (APRESOLINE) tablet 100 mg 100 mg every 8 hours Avni Clifford PA cetirizine (ZyrTEC) tablet 5 mg 5 mg daily PRN Avni Clifford PA 5 mg at 06/30/22 0801 [COMPLETED] New Admission Meds - retrieve upon admission every 4 hours Avni Clifford PA Given at 06/29/22 1600 melatonin tablet 6 mg 6 mg daily BEDTIME Avni Clifford PA 6 mg at 07/02/222107 acetaminophen (TYLENOL) tablet 650 mg 650 mg every 6 hours PRN Srinivas Jon MD 650 mg at 06/30/22 0801 HYDROcodone-acetaminophen (NORCO) 5-325 mg per tablet 1 Tablet 1 Tablet every 6 hours PRN Srinivas Jon MD 1 Tablet at 07/02/222112 Data: UA result (most recent): Lab Results Component Value Date/Time PHUA 5.0 06/30/2022 02:55 PM SGUR 1.024 06/30/2022 02:55 PM URINELEUKOC Negative 06/30/2022 02:55 PM NITRITEUA Negative 06/30/2022 02:55 PM KETONEURINE Negative 06/30/2022 02:55 PM PROTEINUA Negative 06/30/2022 02:55 PM GLUUA 2+ (A) 06/30/2022 02:55 PM BLOODUA Negative 06/30/2022 02:55 PM Urine Random Protein result: No results found for: PROTEINUR CBC result (most recent): Lab Results Component Value Date/Time WBC 3.7 (L) 07/03/2022 05:44 AM HGB 8.8 (L) 07/03/2022 05:44 AM HCT 27.7 (L) 07/03/2022 05:44 AM PLT 368 (H) 07/03/2022 05:44 AM MCV 93.9 07/03/2022 05:44 AM BMP result (most recent): Lab Results Component Value Date/Time NA 137 07/03/2022 05:44 AM K 3.4 (L) 07/03/2022 05:44 AM CL 96 (L) 07/03/2022 05:44 AM CO2 25 07/03/2022 05:44 AM CA 9.4 07/03/2022 05:44 AM BUN 46 (H) 07/03/2022 05:44 AM CREAT 8.80 (H) 07/03/2022 05:44 AM GLUCOSE 113 (H) 07/03/2022 05:44 AM ANIONGAP 16 07/03/2022 05:44 AM CMP result (most recent): Lab Results Component Value Date/Time NA 137 07/03/2022 05:44 AM K 3.4 (L) 07/03/2022 05:44 AM CL 96 (L) 07/03/2022 05:44 AM CO2 25 07/03/2022 05:44 AM CA 9.4 07/03/2022 05:44 AM BUN 46 (H) 07/03/2022 05:44 AM CREAT 8.80 (H) 07/03/2022 05:44 AM GLUCOSE 113 (H) 07/03/2022 05:44 AM TOTALPROTEIN 6.3 (L) 07/03/2022 05:44 AM ALBUMIN 3.1 (L) 07/03/2022 05:44 AM BILITOTAL 0.3 07/03/2022 05:44 AM ALKPHOS 105 07/03/2022 05:44 AM AST 38 07/03/2022 05:44 AM ALT 38 07/03/2022 05:44 AM ANIONGAP 16 07/03/2022 05:44 AM LIPID panel result (most recent): No results found for: CHOLTOT, HDL, LDLCALC, LDLDIRECT, TRIGLYCERIDE GLUCOSE result (most recent): Lab Results Component Value Date/Time GLUCOSE 113 (H) 07/03/2022 05:44 AM Coagulation result (most recent): No results found for: PT, INR, APTT Assessment and Plan: Debility: Continue inpatient comprehensive interdisciplinary rehabilitation to address strengthening, mobility skills, self care, cognitive functioning, speech, communication and swallowing needs. The patient continues to require the interdisciplinary team approach and 24 hour monitoring. CAD, s/p NSTEMI, s/p PCI. Cont asa, metoprolol, statin. Cardiogenic shock Afib: metoprolol, DAPT Acute on chronic systolic CHF: EF 65%: cont lasix, metoprolol, losartan, imdur ESRD, on PD: renal consulted DM: insulin pump at home, resumed per home settings HTN: metoprolol, lasix, clonidine, hydralazine AHRF: pulm toilet, BD prn Dysphagia: resolved, passed MBS 06/21 Severe obsity, BMI 37: encourage weight cessation. DVT Prevention: heparin Pain Management: apap, norco prn Stress ulcer prophylaxis: PPI Bladder management: monitor voiding pattern, monitor bladder scans/PVRs, straight cath per parameters. Bowel management: monitor stooling pattern, continue bowel program adjust laxatives as needed. Code: full F/u: PCP, Aditya Lara MD [phone] Cardiology Endocrinology Srinivas Jon MD T CYTOLOGIST * Rosa Raya LPN - 07/03/2022 6:27 AM CST PD completed 0520 and disconnected, patient experienced routine night during this shift. Baseline functioning, interacting with nursing, medications administered and documented per MAR, safety and fall precautions followed, call- light in reach. T CYTOLOGIST * Rosa Raya LPN - 07/03/2022 1:02 AM CST Patient has had no falls at this time and is fall risk level/color yellow Interventions in Place: [x] Bed Alarm [] Clip Chair Alarm [] Self-Releasing Belt (a one time order is required) [x] Call Light within reach, return demo by patient completed [] Handoff patient when returning him/her to room [x] Wheelchair/Walker out of reach [] Low Bed [] Mats in Place [] Observation Room [x] Fall Risk Magnet on Door [x] Fall Risk Magnet on Schedule Board [x] Fall Risk Armband on Patient [] Sitter [] Other If patient is a red fall risk, do not leave alone in the bathroom. Patient Education on Medications Education provided Re: Juvenal Daigle This education was provided to the patient, family Name of medication: All due medications The education included the following: How to identify their medication, Administering their medication, Storage of their medication, Understanding the side effects of their medication Rosa Raya LPN T CYTOLOGIST * Filomena Sibley RN - 07/02/2022 6:54 PM CST Patient alert and oriented, timeout completed and consent given for CCPD prior to connection. CCPD Connected at 18:35. Dressing changed per protocol no signs and symptoms of infection on exit site. Report given to primary nurse,CCPD approximate end time is 05:05 next morning. T CYTOLOGIST * Lenoela Lantigua RN - 07/02/2022 6:28 PM CST Bedside report completed. Pt resting in bed. PD completed at 8:20 and disconnected. Pt participatedin therapy today. Alt sitting up in w/c and resting in bed. No c/o pain. Pt took shower today with therapy. Pt has insulin pump. The meal accuchecks pt gave insulin per his pump. MAR entry reflects dosing.pt skin is peeling from meds given and the hospital. Lotion applied today. At end of shift pt resting in bed. Dialysis nurse in room hooking up his PD. T CYTOLOGIST * Jasmin Bradley MD - 07/02/2022 5:00 PM CST RENAL BP soft today and will DC Clonidine. CCPD doing well w/o edema or SOB. Check daily weight. Vitals: Vitals: 07/02/22 0730 07/02/22 1400 07/02/22 1609 07/02/22 1854 BP: 103/70 (!) 143/74 117/72 BP Location: Right arm Right arm Right arm Patient Position (BP): Supine Supine Sitting Pulse: 69 63 75 Resp: 16 17 18 Temp: 97.3 ??F (36.3 ??C) 99.1 ??F (37.3 ??C) TempSrc: Oral Oral SpO2: 96% 95% 93% Weight: 117.7 kg (259 lb 6.4 oz) Height: I&O: Intake/Output Summary (Last 24 hours) at 07/02/2022 2211 Last data filed at 07/02/2022 1830 Gross per 24 hour Intake 18629 ml Output 2024 ml Net 72782 ml Examination: RRR, CTA Soft, NT , ND BS+ No edema, PD cath exit site clean and dry Skin warm and dry Labs: Lab Results Component Value Date HGB 8.7 (L) 07/01/2022 , Lab Results Component Value Date WBC 3.5 (L) 07/01/2022 , Lab Results Component Value Date PLT 382 (H) 07/01/2022 , Lab Results Component Value Date NA 131 (L) 07/01/2022 K 3.3 (L) 07/01/2022 CL 91 (L) 07/01/2022 CO2 26 07/01/2022 CA 9.0 07/01/2022 BUN 48 (H) 07/01/2022 CREAT 9.56 (H) 07/01/2022 GLUCOSE 273 (H) 07/01/2022 ANIONGAP 14 07/01/2022 , No results found for: IRON, TIBC, FERRITIN, Lab Results Component Value Date [id number] 1,178 06/30/2022 , No results found for: FOLATE, FOLATERBC, Lab Results Component Value Date CA 9.0 07/01/2022 PO4 5.3 (H) 07/01/2022 , Lab Results Component Value Date CREAT 9.56 (H) 07/01/2022 GFR 6 (L) 07/01/2022 , No results found for: RPR, RPRTITER, No results found for: CHOLTOT, HDL, LDLCALC, LDLDIRECT, TRIGLYCERIDE, No results found for: ESR, ESRPOC, SHAWN, ANASCREEN, ANATITER, RHEUMFACTOR, CRP, CRPHS, [id number], [id number], DNAAB, DNADSAB, CCPABIGG, Lab Results Component Value Date HEPBSAG Non-reactive 06/30/2022 , Assessment/Plan: Patient Active Hospital Problem List: ESRD on CCPD daily --CCPD use all 25% Dianeal with 2.5L dwelling volume. 5 exchange for total 10.5 hrs, with no last refill because [facility] has no purple bag --Gentamicin cream and dressing change to PD catheter sites --K 3.3 and give 40 meq KCl x 1 then 20 meq qd --Avoid hypotension --Avoid all nephrotoxins HLD, CAD, AMI, Acute on chronic HFrEF (heart failure with reduced ejection fraction), cardiogenic shock, s/p stenting< A Fib --Lipitor --ASA --Plavix --Lasix 80 mg bid --Imdur 30 mg qd --Metoprolol 25 mg bid -- Ranexa 500 mg bid Anemia of chronic renal failure --Keep Fe% > 30% --Nephrocaps --Aranesp --Transfusion as needed if hemoglobin less than 8 Chronic 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 --Short-term colchicine need to be renal dose Hyperparathyroidism, renal osteodystrophy --Vitamin D --Phosphorus binder Renvela Acute hypoxemic respiratory failure, cardiogenic shock pneumonia --Abx --Bronchi dilator --Lasix Gastroesophageal reflux disease without esophagitis (04/24/2018) --Protonix DVT Prophlaxis - Heparin Current Planned Disposition - home Plan discussed with patient; questions answered; patient agrees with current plan. Current Code Status -Full Code Thank you for inviting me to participate the care of this patient, will follow up closely with you. JASMIN BRADLEY MD [facility] Office [phone] T CYTOLOGIST * Conrad Dumont MD - 07/02/2022 1:05 PM CST Images from the original note were not included. Internal Medicine/Rehabilitation Service Patient: Juvenal Daigle Date of : 1970 Admission Date: (06/29/2022) Vitals With Comments 07/02/2022 0400 07/01/2022 1900 07/01/2022 1800 07/01/2022 0400 BP: 107/67 131/75 150/80 153/81 Pulse: 65 68 68 67 Resp: 18 19 18 18 Temp: 98 ??F (36.7 ??C) 99 ??F (37.2 ??C) 98.6 ??F (37 ??C) 98.6 ??F (37 ??C) Temp src: Oral Oral Oral Oral SpO2: 93 % 99 % 97 % 97 % DIET DIABETIC 2GM Sodium (Low), Full Code BIPAP settings. Timeline (including subjective): 07/02/22- Patient states he feels better. He thinks his pain medicine improves his overall pain perception versus the muscle relaxant. Will increase his muscle relaxant and follow outcomes. Patient states that he feels better as his BPs are slightly higher than previous as he was feeling markedly dizzy with any type of activity. T-max overnight was 99 ??F. PD management continues. Fplwg-bn-hlyw glucoses are elevated patient is following endocrine's protocol. Labs tomorrow. complex care continues. Appreciate nephrology following along- continue course 07/01/22- Patient appears improved clinically since admission. His skin tone is improved as well. Ongoing PD management continues per nephrology. T-max overnight was 99.3 and has since resolved to afebrile status, pulse rates ideal, tolerating room air. P.o. intake is improved since admission. Labsthis morning show white blood cell count 3.5, hematocrit 26.9, sodium 131, potassium 3.3, creatinine 9.56, phosphorus of 5.3. Nephrology is following along and continue to follow formal recommendations. Will offer Klor-Con x1 and follow outcomes. Continue to hold his BP meds as the patch is workingand will start to reintroduce multiple medications if necessary in the acute rehab process. Patient's insulin pump is running low and waiting for family to bring in insulin to refill. Continue course. 06/30/22- Patient notes that he was very uncomfortable with sleep last night. He said his whole body hurt . Patient was offered pain regime per PMR MD. Will offer muscle relaxant as likely related to tone and spasm. Patient apparently is running out of his insulin in his insulin pump. Will offer him long-acting and short acting as directed once his insulin pump has stopped. He has at least 12 more hours of long-acting insulin per his report. We will continue sliding scale short acting insulin as his family apparently will bring in his home supply to refill his pump. PD continues and patient should have catheter care at PD exit site with antibiotic. Patient with chest x-ray that shows some form of pneumonia. We will offer a sputum culture induced by respiratory services to send for sample. Patient has been scheduled and tested for multiple COVID tests and have been negative. Ongoing care continues complex management and medical supervision is highly crucial and indicated. 06/29/2022 - Admission to [facility] - (Admission Data below). DAPT on ASA and Plavix. Pt appears ill. Pt with PD cath and DM pump. Discussed care at length with bedside RN and RESPlead. On going aggressive medical mgt continues to optimize pt for continued success in the comprehensive rehab course. Complex needs are noted. Reviewed extensive records from [facility] and daughter says BIPAP settings. 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 Anemia of chronic renal failure, stage 4 (severe) Hyperlipidemia- HCTZ, HTN (hypertension) Diabetes mellitus BEN (obstructive sleep apnea) Gout Congestive heart failure Hypertensive kidney disease with end-stage renal disease ESRD (end stage renal disease) Diabetic peripheral neuropathy Ketoacidosis due to type 1 diabetes mellitus Stage 5 chronic kidney disease Right upper quadrant pain Proliferative diabetic retinopathy associated with type 2 diabetes mellitus Pre-transplant evaluation for kidney transplant History of coronary artery stent placement History of deep vein thrombosis Hypersomnia Gastritis Gastroesophageal reflux disease without esophagitis Dystrophia unguium Dysphagia- ZINC PLATER to assess and follow Cardiogenic shock Anemia in chronic kidney disease Acute on chronic HFrEF (heart failure with reduced ejection fraction) Abnormal cardiovascular stress test Acute hypoxemic respiratory failure DVT PRX: Heparin, SCDS Electrolyte derangement-Bind and Replenish Anemia-Follow H/H. Transfuse when clinically indicated Pain Control- titration throughout acute inpatient rehab process Nausea-Zofran prn Constipation-Bowel Regimen, follow output daily Polypharmacy-Follow. Medications fully reconciled Vitamin deficiency-Supplement Nursing Instructions: Incentive spirometry, I/O's, Vitals every 8 hours, Nutrition and ADLs Record Review: moderate Old medical records, labs, preadmission screening, previous radiology studies. Nutritional support and Blood sugar management - encourage adequate diet, caloric intake, fluid balance Avoid hypoglycemia Medication Profile: Allergies Allergen Reactions Allopurinol Shortness of Breath/Wheezing and Other (See Comments) Shuts my kidneys down per patient. Chlorhexidine Other (See Comments) Skin peels all over and becomes tender Iodinated Contrast Media Rash Ticagrelor Rash Scheduled Medication Profile: Facility-Administered Medications as of 07/02/2022 Medication Dose Frequency Provider Last Rate Last Admin tiZANidine (ZANAFLEX) tablet 4 mg 4 mg every 8 hours Avni Clifford PA 4 mg at 07/02/22 1247 [COMPLETED] potassium chloride (KLOR-CON) SR tablet 40 mEq 40 mEq ONE time only Avni Clifford PA 40 mEq at 07/01/22 1100 calcium acetate (CALPHRON) tablet 667 mg 667 mg TID BEFORE meals Avni Clifford PA 667 mg at 07/02/22 1214 peg [id number] 1-0.2-0.2 % ophthalmic solution 1 Drop 1 Drop QID Avni Clifofrd PA 1 Drop at 07/02/22 1247 calcitRIOL (ROCALTROL) capsule 0.25 mcg 0.25 mcg daily Avni Clifford PA 0.25 mcg at 07/02/22 0754 heparin injection 5,000 Units 5,000 Units every 8 hours Avni Clifford PA 5,000 Units at 07/02/22 1247 aspirin (JOSEPH CHEWABLE) chewable tablet 81 mg 81 mg daily Avni Clifford PA 81 mg at 07/02/22 0755 atorvastatin (LIPITOR) tablet 80 mg 80 mg daily Avni Clifford PA 80 mg at 07/02/22 0753 clopidogreL (PLAVIX) tablet 75 mg 75 mg daily Avni Clifford PA 75 mg at 07/02/22 0753 nitroglycerin (NITROSTAT) tablet 0.4 mg 0.4 mg every 5 minutes PRN Avni Clifford PA [Held by Provider] isosorbide mononitrate (IMDUR) SR 24 hour tablet 30 mg 30 mg daily Avni Clifford PA 30 mg at 06/30/22 0800 [Held by Provider] losartan (COZAAR) tablet 12.5 mg 12.5 mg daily Avni Clifford PA 12.5 mg at 06/30/22 0801 pantoprazole (PROTONIX) tablet 40 mg 40 mg daily Avni Clifford PA 40 mg at 07/02/22 0500 metoprolol tartrate (LOPRESSOR) tablet 25 mg 25 mg BID Avni Clifford PA 25 mg at 07/02/22 0754 gentamicin (GARAMYCIN) 0.1 % topical ointment daily Avni Clifford PA Given at 07/01/22 1700 naloxone (NARCAN) 0.4 mg/mL injection 0.1 mg 0.1 mg see admin instructions Avni Clifford PA ondansetron (ZOFRAN ODT) tablet 4 mg 4 mg every 6 hours PRN Avni Clifford PA prochlorperazine maleate (COMPAZINE) tablet 10 mg 10 mg every 6 hours PRN Avni Clifford PA albuterol (PROVENTIL,VENTOLIN) 2.5 mg /3 mL (0.083 %) inhalation solution 2.5 mg 2.5 mg resp, every6 hours PRN Avni Clifford PA bisacodyL (DULCOLAX) delayed release tablet 5 mg 5 mg daily PRN Avni Clifford PA bisacodyL (DULCOLAX) rectal suppository 10 mg 10 mg daily PRN Avni Clifford PA aluminum - magnesium - simethicone (MYLANTA) 200-200-20 mg/5 mL oral suspension 30 mL 30 mL every 4hours PRN Avni Clifford PA calcium as carbonate (TUMS) 500 mg (200 mg elemental) chewable tablet 200 mg 200 mg every 4 hours PRN Avni Clifford PA folic acid-Vit B6-Vit B12 (FOLTX) per tablet 1 Tablet 1 Tablet daily Avni Clifford PA 1 Tablet at 07/02/22 0753 dextrose 5% - sodium chloride 0.9% infusion see admin instructions Avni Clifford PA dextrose 50% (D50) syringe 12.5 Gram 12.5 Gram see admin instructions Avni Clifford PA dextrose 50% (D50) syringe 25 Gram 25 Gram see admin instructions Avni Clifford PA glucagon human recombinant (GLUCAGEN) 1 mg/mL injection 1 mg 1 mg see admin instructions Avni Clifford PA dextrose 50% (D50) syringe 12.5 Gram 12.5 Gram see admin instructions Avni Clifford PA dextrose 50% (D50) syringe 25 Gram 25 Gram see admin instructions Avni Clifford PA glucagon human recombinant (GLUCAGEN) 1 mg/mL injection 1 mg 1 mg see admin instructions Avni Clifford PA insulin aspart pump basal (NovoLOG) 100 unit/mL infusion TID Avni Clifford PA 0.8 Units/hr at 07/02/22 0758 insulin lispro (HumaLOG) variable dose injection QID WITH meals and HS Avni Clifford PA 6.15 Units at 07/02/22 1215 colchicine (COLCRYS) tablet 0.6 mg 0.6 mg every 48 hours Avni Clifford PA 0.6 mg at 07/02/22 0755 doxycycline monohydrate (MONODOX) capsule 50 mg 50 mg every 12 hours (2 times daily) Avni Clifford PA 50 mg at 07/02/22 0755 furosemide (LASIX) tablet 80 mg 80 mg BID, 7 hours apart Avni Clifford PA 80 mg at 07/02/22 0755 ezetimibe (ZETIA) tablet 10 mg 10 mg daily Avni Clifford PA 10 mg at 07/02/22 0755 ranolazine ER (RANEXA) SR 12 hour tablet 500 mg 500 mg every 12 hours (2 times daily) Avni Clifford PA 500 mg at 07/02/22 0754 [Held by Provider] hydrALAZINE (APRESOLINE) tablet 100 mg 100 mg every 8 hours Avni Clifford PA cetirizine (ZyrTEC) tablet 5 mg 5 mg daily PRN Avni Clifford PA 5 mg at 06/30/22 0801 cloNIDine (GUZKGPVN-MSP-0) 0.1 mg/24 hr transdermal patch 1 Patch 1 Patch every 7 days Avni Clifford PA 1 Patch at 06/30/22 0547 [COMPLETED] New Admission Meds - retrieve upon admission every 4 hours Avni Clifford PA Given at 06/29/22 1600 melatonin tablet 6 mg 6 mg daily BEDTIME Avni Clifford PA 6 mg at 07/01/22 210 acetaminophen (TYLENOL) tablet 650 mg 650 mg every 6 hours PRN Srinivas Jon MD 650 mg at 06/30/22 0801 HYDROcodone-acetaminophen (NORCO) 5-325 mg per tablet 1 Tablet 1 Tablet every 6 hours PRN Srinivas Jon MD 1 Tablet at 07/02/22 0449 Admission Data : CC: Debility/Cardiogenic shock/HTN HPI: Juvenal Daigle is a 51 y.o. male who recently has been admitted to [facility] for comprehensive rehabilitation - multiple complex medical issues will impact medical management throughout the acute inpatient rehabilitation process. Pt has a significant medical history including but not limited to CHF- EF 50%, Afib, HTN, CAD, T1DM, ESRD on PD, HLD, GERD, hyperparathyroidism, DDD, OA, gout, BEN on CPAP, who initially presented to [facility] for n/v, onset three days, with associated chest pain, generalized weakness, chills, ROONEY. Symptoms were relieved with sublingual ntg. His labs were notable for trop 1.0-->1.09-->0.729, BNP 39655. He had a CT CAP showing cholelithiasis and likely PNA. RUQUS showed distended gallbladder with gallstones and gallbladder wall thickening, recommend ed HIDA scan. He was treated with ctx/azithromycin. Pt was started on a heparin gtt. Cath on 06/03 showed previous PCI to proximal and distal right coronary patent, 99% ostial circumflex stenosis as well as 90% circumflex lesion after origin of largest OM branch, mild diffuse disease in LAD which does not appear to be flow limiting. Pt was recommended PCI of left circumflex as optimal treatment. Pt was transfered to [facility] on 06/05. Upon arrival EKG showed sinus bradycardia, 1st deg AV block. ACT was called for substernal chest pressure and hypoxemia, he was placed on BiPAP with improvement in oxygen saturation and transferred to the MICU, where he was placed on AVAPS. CXR showed significantly worsened pulmonary edema. Trop 4797 -> 4266 in the MICU, EKG was unchanged. Pt was started onmero for cholecystitis. He was continued on heparin gtt, started on nitro gtt for BP control and O2was weaned to nasal cannula. Pt underwent complex PCI 06/07, PCI revealed ostial circ lesion of 90%, large OM with 70% narrowing. Patient became hypotensive and hypoxemic requiring levo and epi gtt. The patient was intubated. The left dominant circumflex and OM were then stented. Impella was inserted. A swan liv catheter and L IJ trialysis were also placed. Impella was weaned slowly and removed 06/10. Pressors and vent settings were weaned slowly, and patient was ultimately extubated on 06/20.Passed MBS and was started on a PO DM diet. Pt is tolerating well. Pt is participating in therapy and is able to tolerate 3hrs of therapy a day. Pt has been deemed medically stable and appropriate for comprehensive rehab. PMR MD to have formal referral placed. Past Medical History: Diagnosis Date Amplified musculoskeletal pain Diabetes mellitus Heart attack 04/14/2017 HTN (hypertension) Hyperlipidemia Thromboembolism Past Surgical History: Procedure Laterality Date HX ANGIOPLASTY N/A 04/17/2017 Family history Non contributory Social History Tobacco Use Smoking status: Never Smokeless tobacco: Never Substance Use Topics Alcohol use: No Drug use: No reports that he has never smoked. He has never used smokeless tobacco. He reports that he does not drink alcohol and does not use drugs. Review of Systems: No new fever or chills, worsening cough or colds, chest pain No new abdominal pain, heat or cold intolerance + fatigue, cough, weakness, Objective Data: Vitals With Comments 07/02/2022 0400 07/01/2022 1900 07/01/2022 1800 07/01/2022 0400 BP: 107/67 131/75 150/80 153/81 Pulse: 65 68 68 67 Resp: 18 19 18 18 Temp: 98 ??F (36.7 ??C) 99 ??F (37.2 ??C) 98.6 ??F (37 ??C) 98.6 ??F (37 ??C) Temp src: Oral Oral Oral Oral SpO2: 93 % 99 % 97 % 97 % 07/02 0700 - 07/02 1859 In: 600 [P.O.:600] Out: 300 [Urine:300] General alert, awake, no cardiopulmonary distress, weakness Lungs Decreased breath sounds at bases Heart regular rate and rhythm Abdomen soft, non-tender, with bowel sounds, + PD cath, + DM pump Extremities pulses noted, no cyanosis Labs ordered and awaiting results - CBC result (most recent): Lab Results Component Value Date/Time WBC 3.5 (L) 07/01/2022 05:19 AM HGB 8.7 (L) 07/01/2022 05:19 AM HCT 26.9 (L) 07/01/2022 05:19 AM PLT 382 (H) 07/01/2022 05:19 AM MCV 93.7 07/01/2022 05:19 AM BMP result (most recent): Lab Results Component Value Date/Time NA 131 (L) 07/01/2022 05:19 AM K 3.3 (L) 07/01/2022 05:19 AM CL 91 (L) 07/01/2022 05:19 AM CO2 26 07/01/2022 05:19 AM CA 9.0 07/01/2022 05:19 AM BUN 48 (H) 07/01/2022 05:19 AM CREAT 9.56 (H) 07/01/2022 05:19 AM GLUCOSE 273 (H) 07/01/2022 05:19 AM ANIONGAP 14 07/01/2022 05:19 AM CMP result (most recent): Lab Results Component Value Date/Time NA 131 (L) 07/01/2022 05:19 AM K 3.3 (L) 07/01/2022 05:19 AM CL 91 (L) 07/01/2022 05:19 AM CO2 26 07/01/2022 05:19 AM CA 9.0 07/01/2022 05:19 AM BUN 48 (H) 07/01/2022 05:19 AM CREAT 9.56 (H) 07/01/2022 05:19 AM GLUCOSE 273 (H) 07/01/2022 05:19 AM TOTALPROTEIN 6.6 (L) 06/30/2022 05:46 AM ALBUMIN 2.9 (L) 07/01/2022 05:19 AM BILITOTAL 0.4 06/30/2022 05:46 AM ALKPHOS 106 06/30/2022 05:46 AM AST 23 06/30/2022 05:46 AM ALT 31 06/30/2022 05:46 AM ANIONGAP 14 07/01/2022 05:19 AM HEPATIC function panel result (most recent): Lab Results Component Value Date/Time ALT 31 06/30/2022 05:46 AM AST 23 06/30/2022 05:46 AM ALKPHOS 106 06/30/2022 05:46 AM Hemoglobin A1C result (most recent): No results found for: HGBA1C, [id number] LIPID panel result (most recent): No results found for: CHOLTOT, HDL, LDLCALC, LDLDIRECT, TRIGLYCERIDE UA results do not (most recent): Lab Results Component Value Date/Time PHUA 5.0 06/30/2022 02:55 PM SGUR 1.024 06/30/2022 02:55 PM URINELEUKOC Negative 06/30/2022 02:55 PM NITRITEUA Negative 06/30/2022 02:55 PM KETONEURINE Negative 06/30/2022 02:55 PM PROTEINUA Negative 06/30/2022 02:55 PM GLUUA 2+ (A) 06/30/2022 02:55 PM BLOODUA Negative 06/30/2022 02:55 PM CULTURE Date Value Ref Range Status 06/30/2022 <10,000 cfu/mL Staphylococcus epidermidis (A) Final Comment: No further workup indicated. No results found for this or any previous visit. Hospitalist Statement: The Internal Medicine team participates in patient care to directly impact the acute rehabilitationprocess. Daily rounds include discussion of I and Os, avoiding hypotension and hypoglycemia. Daily medication review completed. Ongoing efforts to coordinate care, maintain euvolemia, adequate nutrition, electrolyte management, appropriate BP management, overall stability, and management of co-morbidites individually are being dictated by clinical progress. Documentation partially completed using dictation services and EMR. Please excuse any typographicalerrors that may have occurred. LESLY Ayala MD Internal Medicine Director // T CYTOLOGIST * Srinivas Jon MD - 07/02/2022 11:15 AM CST REHAB/PMA&R DAILY PROGRESS NOTE Date: 07/02/2022 Time: 11:15 AM Subjective: Seen on his way to PT. He says his lightheadedness is better today. VSS. IM and renal input appreciated. ESRD on PD. Tolerates therapy. Labs reviewed. Function status and progress towards rehab goals: PT: mainly min A OT: min A-mod A Goals: continue to address his medical stability, orthostasis, strengthening, endurance, balance toreach mod I at dc ELOS: re-eval on Mon. Review of System: No fever, nausea/vomiting, chest pain, or shortness of breath. Exam: BP 107/67 (BP Location: Right arm, Patient Position (BP): Supine) Pulse 65 Temp 98 ??F (36.7 ??C) (Oral) Resp 18 Ht 5' 10 (1.778 m) Wt 117.3 kg (258 lb 8 oz) SpO2 93% BMI 37.09 kg/m?? General appearance: alert, in no distress Skin/sores/incisions: No rashes or lesions; Musculoskeletal: LE edema Neurologic: Mental status: Alert, awake, responsive, oriented to time and place and person, attentive. Language: Fluent, good naming and good repetition. Cranial nerves: Pupils are normal reactive to light EOM: full, normal visual charles No ptosis Normal facial sensation and no facial weakness Normal hearing Muscle strength: 5/5 in UE/LExts proximally and distally bilaterally. Psych: affect is euthymic. Current Medications: Facility-Administered Medications as of 07/02/2022 Medication Dose Frequency Provider Last Rate Last Admin tiZANidine (ZANAFLEX) tablet 4 mg 4 mg every 8 hours Avni Clifford PA [COMPLETED] potassium chloride (KLOR-CON) SR tablet 40 mEq 40 mEq ONE time only Avni Clifford PA 40 mEq at 07/01/22 1100 calcium acetate (CALPHRON) tablet 667 mg 667 mg TID BEFORE meals Avni Clifford PA 667 mg at 07/02/22 0753 peg [id number] 1-0.2-0.2 % ophthalmic solution 1 Drop 1 Drop QID Avni Clifford PA 1 Drop at 07/02/22 0756 calcitRIOL (ROCALTROL) capsule 0.25 mcg 0.25 mcg daily Avni Clifford PA 0.25 mcg at 07/02/22 0754 heparin injection 5,000 Units 5,000 Units every 8 hours Avni Clifford PA 5,000 Units at 07/02/22 0447 aspirin (JOSEPH CHEWABLE) chewable tablet 81 mg 81 mg daily Avni Clifford PA 81 mg at 07/02/22 0755 atorvastatin (LIPITOR) tablet 80 mg 80 mg daily Avni Clifford PA 80 mg at 07/02/22 0753 clopidogreL (PLAVIX) tablet 75 mg 75 mg daily Avni Clifford PA 75 mg at 07/02/22 0753 nitroglycerin (NITROSTAT) tablet 0.4 mg 0.4 mg every 5 minutes PRN Avni Clifford PA [Held by Provider] isosorbide mononitrate (IMDUR) SR 24 hour tablet 30 mg 30 mg daily Avni Clifford PA 30 mg at 06/30/22 0800 [Held by Provider] losartan (COZAAR) tablet 12.5 mg 12.5 mg daily Avni Clifford PA 12.5 mg at 06/30/22 0801 pantoprazole (PROTONIX) tablet 40 mg 40 mg daily Avni Clifford PA 40 mg at 07/02/22 0500 metoprolol tartrate (LOPRESSOR) tablet 25 mg 25 mg BID Avni Clifford PA 25 mg at 07/02/22 0754 gentamicin (GARAMYCIN) 0.1 % topical ointment daily Avni Clifford PA Given at 07/01/22 1700 naloxone (NARCAN) 0.4 mg/mL injection 0.1 mg 0.1 mg see admin instructions Avni Clifford PA ondansetron (ZOFRAN ODT) tablet 4 mg 4 mg every 6 hours PRN Avni Clifford PA prochlorperazine maleate (COMPAZINE) tablet 10 mg 10 mg every 6 hours PRN Avni Clifford PA albuterol (PROVENTIL,VENTOLIN) 2.5 mg /3 mL (0.083 %) inhalation solution 2.5 mg 2.5 mg resp, every6 hours PRN Avni Clifford PA bisacodyL (DULCOLAX) delayed release tablet 5 mg 5 mg daily PRN Avni Clifford PA bisacodyL (DULCOLAX) rectal suppository 10 mg 10 mg daily PRN Avni Clifford PA aluminum - magnesium - simethicone (MYLANTA) 200-200-20 mg/5 mL oral suspension 30 mL 30 mL every 4hours PRN Avni Clifford PA calcium as carbonate (TUMS) 500 mg (200 mg elemental) chewable tablet 200 mg 200 mg every 4 hours PRN Avni Clifford PA folic acid-Vit B6-Vit B12 (FOLTX) per tablet 1 Tablet 1 Tablet daily Avni Clifford PA 1 Tablet at 07/02/22 0753 dextrose 5% - sodium chloride 0.9% infusion see admin instructions Avni Clifford PA dextrose 50% (D50) syringe 12.5 Gram 12.5 Gram see admin instructions Avni Clifford PA dextrose 50% (D50) syringe 25 Gram 25 Gram see admin instructions Avni Clifford PA glucagon human recombinant (GLUCAGEN) 1 mg/mL injection 1 mg 1 mg see admin instructions Avni Clifford PA dextrose 50% (D50) syringe 12.5 Gram 12.5 Gram see admin instructions Avni Clifford PA dextrose 50% (D50) syringe 25 Gram 25 Gram see admin instructions Avni Clifford PA glucagon human recombinant (GLUCAGEN) 1 mg/mL injection 1 mg 1 mg see admin instructions Avni Clifford PA insulin aspart pump basal (NovoLOG) 100 unit/mL infusion TID Avni Clifford PA 0.8 Units/hr at 07/02/22 0758 insulin lispro (HumaLOG) variable dose injection QID WITH meals and HS Avni Clifford PA 3 Unitsat 07/01/22 2100 colchicine (COLCRYS) tablet 0.6 mg 0.6 mg every 48 hours Avni Clifford PA 0.6 mg at 07/02/22 0755 doxycycline monohydrate (MONODOX) capsule 50 mg 50 mg every 12 hours (2 times daily) Avni Clifford PA 50 mg at 07/02/22 0755 furosemide (LASIX) tablet 80 mg 80 mg BID, 7 hours apart Avni Clifford PA 80 mg at 07/02/22 0755 ezetimibe (ZETIA) tablet 10 mg 10 mg daily Avni Clifford PA 10 mg at 07/02/22 0755 ranolazine ER (RANEXA) SR 12 hour tablet 500 mg 500 mg every 12 hours (2 times daily) Avni Clifford PA 500 mg at 07/02/22 0754 [Held by Provider] hydrALAZINE (APRESOLINE) tablet 100 mg 100 mg every 8 hours Avni Clifford PA cetirizine (ZyrTEC) tablet 5 mg 5 mg daily PRN Avni Clifford PA 5 mg at 06/30/22 0801 cloNIDine ([id number]) 0.1 mg/24 hr transdermal patch 1 Patch 1 Patch every 7 days Avni Clifford PA 1 Patch at 06/30/22 0547 [COMPLETED] New Admission Meds - retrieve upon admission every 4 hours Avni Clifford PA Given at 06/29/22 1600 melatonin tablet 6 mg 6 mg daily BEDTIME Avni Clifford PA 6 mg at 07/01/222108 acetaminophen (TYLENOL) tablet 650 mg 650 mg every 6 hours PRN Srinivas Jon MD 650 mg at 06/30/22 0801 HYDROcodone-acetaminophen (NORCO) 5-325 mg per tablet 1 Tablet 1 Tablet every 6 hours PRN Srinivas Jon MD 1 Tablet at 07/02/22 0449 Data: UA result (most recent): Lab Results Component Value Date/Time PHUA 5.0 06/30/2022 02:55 PM SGUR 1.024 06/30/2022 02:55 PM URINELEUKOC Negative 06/30/2022 02:55 PM NITRITEUA Negative 06/30/2022 02:55 PM KETONEURINE Negative 06/30/2022 02:55 PM PROTEINUA Negative 06/30/2022 02:55 PM GLUUA 2+ (A) 06/30/2022 02:55 PM BLOODUA Negative 06/30/2022 02:55 PM Urine Random Protein result: No results found for: PROTEINUR CBC result (most recent): Lab Results Component Value Date/Time WBC 3.5 (L) 07/01/2022 05:19 AM HGB 8.7 (L) 07/01/2022 05:19 AM HCT 26.9 (L) 07/01/2022 05:19 AM PLT 382 (H) 07/01/2022 05:19 AM MCV 93.7 07/01/2022 05:19 AM BMP result (most recent): Lab Results Component Value Date/Time NA 131 (L) 07/01/2022 05:19 AM K 3.3 (L) 07/01/2022 05:19 AM CL 91 (L) 07/01/2022 05:19 AM CO2 26 07/01/2022 05:19 AM CA 9.0 07/01/2022 05:19 AM BUN 48 (H) 07/01/2022 05:19 AM CREAT 9.56 (H) 07/01/2022 05:19 AM GLUCOSE 273 (H) 07/01/2022 05:19 AM ANIONGAP 14 07/01/2022 05:19 AM CMP result (most recent): Lab Results Component Value Date/Time NA 131 (L) 07/01/2022 05:19 AM K 3.3 (L) 07/01/2022 05:19 AM CL 91 (L) 07/01/2022 05:19 AM CO2 26 07/01/2022 05:19 AM CA 9.0 07/01/2022 05:19 AM BUN 48 (H) 07/01/2022 05:19 AM CREAT 9.56 (H) 07/01/2022 05:19 AM GLUCOSE 273 (H) 07/01/2022 05:19 AM TOTALPROTEIN 6.6 (L) 06/30/2022 05:46 AM ALBUMIN 2.9 (L) 07/01/2022 05:19 AM BILITOTAL 0.4 06/30/2022 05:46 AM ALKPHOS 106 06/30/2022 05:46 AM AST 23 06/30/2022 05:46 AM ALT 31 06/30/2022 05:46 AM ANIONGAP 14 07/01/2022 05:19 AM LIPID panel result (most recent): No results found for: CHOLTOT, HDL, LDLCALC, LDLDIRECT, TRIGLYCERIDE GLUCOSE result (most recent): Lab Results Component Value Date/Time GLUCOSE 273 (H) 07/01/2022 05:19 AM Coagulation result (most recent): No results found for: PT, INR, APTT Assessment and Plan: Debility: Continue inpatient comprehensive interdisciplinary rehabilitation to address strengthening, mobility skills, self care, cognitive functioning, speech, communication and swallowing needs. The patient continues to require the interdisciplinary team approach and 24 hour monitoring. CAD, s/p NSTEMI, s/p PCI. Cont asa, metoprolol, statin. Cardiogenic shock Afib: metoprolol, DAPT Acute on chronic systolic CHF: EF 65%: cont lasix, metoprolol, losartan, imdur ESRD, on PD: renal consulted DM: insulin pump at home, resumed per home settings HTN: metoprolol, lasix, clonidine, hydralazine AHRF: pulm toilet, BD prn Dysphagia: resolved, passed MBS 06/21 Severe obsity, BMI 37: encourage weight cessation. DVT Prevention: heparin Pain Management: apap, norco prn Stress ulcer prophylaxis: PPI Bladder management: monitor voiding pattern, monitor bladder scans/PVRs, straight cath per parameters. Bowel management: monitor stooling pattern, continue bowel program adjust laxatives as needed. Code: full F/u: PCP, Aditya Lara MD [phone] Cardiology Endocrinology Srinivas Jon MD T CYTOLOGIST * Filomena Sibley RN - 07/01/2022 10:17 PM CST Patient alert and oriented, timeout completed and consent given for CCPD prior to connection. CCPD Connected at 19:42. Dressing changed per protocol no signs and symptoms of infection on exit site. Report given to primary nurse,[facility] approximate end time is 06:15 next morning. T CYTOLOGIST * Jasmin Bradley MD - 07/01/2022 5:00 PM CST RENAL He is less dizzy and lightheaded today. BP is up today. Adjust anti-HTN. CCPD doing well w/o edema or SOB. Vitals: Vitals: 06/30/22 2000 07/01/22 0400 07/01/22 1800 07/01/22 1900 BP: 125/72 (!) 153/81 (!) 150/80 131/75 BP Location: Right arm Right arm Right arm Right arm Patient Position (BP): Supine Supine Supine Supine Pulse: 66 67 68 68 Resp: 19 18 18 19 Temp: 99.3 ??F (37.4 ??C) 98.6 ??F (37 ??C) 98.6 ??F (37 ??C) 99 ??F (37.2 ??C) TempSrc: Oral Oral Oral Oral SpO2: 90% 97% 97% 99% Weight: Height: I&O: Intake/Output Summary (Last 24 hours) at 07/01/20222125 Last data filed at 07/01/2022 1200 Gross per 24 hour Intake 20865 ml Output 1413 ml Net 43094 ml Examination: RRR, CTA Soft, NT , ND BS+ No edema, PD cath exit site clean and dry Skin warm and dry Labs: Lab Results Component Value Date HGB 8.7 (L) 07/01/2022 , Lab Results Component Value Date WBC 3.5 (L) 07/01/2022 , Lab Results Component Value Date PLT 382 (H) 07/01/2022 , Lab Results Component Value Date NA 131 (L) 07/01/2022 K 3.3 (L) 07/01/2022 CL 91 (L) 07/01/2022 CO2 26 07/01/2022 CA 9.0 07/01/2022 BUN 48 (H) 07/01/2022 CREAT 9.56 (H) 07/01/2022 GLUCOSE 273 (H) 07/01/2022 ANIONGAP 14 07/01/2022 , No results found for: IRON, TIBC, FERRITIN, Lab Results Component Value Date [id number] 1,178 06/30/2022 , No results found for: FOLATE, FOLATERBC, Lab Results Component Value Date CA 9.0 07/01/2022 PO4 5.3 (H) 07/01/2022 , Lab Results Component Value Date CREAT 9.56 (H) 07/01/2022 GFR 6 (L) 07/01/2022 , No results found for: RPR, RPRTITER, No results found for: CHOLTOT, HDL, LDLCALC, LDLDIRECT, TRIGLYCERIDE, No results found for: ESR, ESRPOC, SHAWN, ANASCREEN, ANATITER, RHEUMFACTOR, CRP, CRPHS, G4ANCKNAUPY, [id number], DNAAB, DNADSAB, CCPABIGG, Lab Results Component Value Date HEPBSAG Non-reactive 06/30/2022 , Assessment/Plan: Patient Active Hospital Problem List: ESRD on CCPD daily --Today use all 25% Dianeal with 2.5L dwelling volume. 5 exchange for total 10.5 hrs, with no last refill because [facility] has no purple bag --Gentamicin cream and dressing change to PD catheter sites --Avoid hypotension --Avoid all nephrotoxins HLD, CAD, AMI, Acute on chronic HFrEF (heart failure with reduced ejection fraction), cardiogenic shock, s/p stenting< A Fib --Lipitor --ASA --Plavix --Lasix 80 mg bid --Imdur 30 mg qd --Metoprolol 25 mg bid -- Ranexa 500 mg bid Anemia of chronic renal failure --Keep Fe% > 30% --Nephrocaps --Aranesp --Transfusion as needed if hemoglobin less than 8 Chronic embolism and thrombosis of unspecified deep veins of right lower extremity --DVT prophylaxis --Off full AC Hyperlipidemia -- Lipitor HTN (hypertension) --Clonidine patch --Hydralazine 100 mg every 8 hours due to softer blood pressure --Losartan 12.5 mg daily -- 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 Current Code Status -Full Code Thank you for inviting me to participate the care of this patient, will follow up closely with you. JASMIN BRADLEY MD [facility] Neph[facility] Office [phone] T CYTOLOGIST * Conrad Dumont MD - 07/01/2022 11:46 AM CST Images from the original note were not included. Internal Medicine/Rehabilitation Service Patient: Juvenal Daigle Date of : 1970 Admission Date: (06/29/2022) Vitals With Comments 07/01/2022 0400 06/30/2022 2000 06/30/2022 1500 06/30/2022 0800 BP: 153/81 125/72 114/67 111/71 Pulse: 67 66 70 74 Resp: 18 19 18 -- Temp: 98.6 ??F (37 ??C) 99.3 ??F (37.4 ??C) 97.9 ??F (36.6 ??C) -- Temp src: Oral Oral Oral -- SpO2: 97 % 90 % 95 % -- DIET DIABETIC 2GM Sodium (Low), Full Code BIPAP settings. Timeline (including subjective): 07/01/22- Patient appears improved clinically since admission. His skin tone is improved as well. Ongoing PD management continues per nephrology. T-max overnight was 99.3 and has since resolved to afebrile status, pulse rates ideal, tolerating room air. P.o. intake is improved since admission. Labsthis morning show white blood cell count 3.5, hematocrit 26.9, sodium 131, potassium 3.3, creatinine 9.56, phosphorus of 5.3. Nephrology is following along and continue to follow formal recommendations. Will offer Klor-Con x1 and follow outcomes. Continue to hold his BP meds as the patch is workingand will start to reintroduce multiple medications if necessary in the acute rehab process. Patient's insulin pump is running low and waiting for family to bring in insulin to refill. Continue course. 06/30/22- Patient notes that he was very uncomfortable with sleep last night. He said his whole body hurt . Patient was offered pain regime per PMR MD. Will offer muscle relaxant as likely related to tone and spasm. Patient apparently is running out of his insulin in his insulin pump. Will offer him long-acting and short acting as directed once his insulin pump has stopped. He has at least 12 more hours of long-acting insulin per his report. We will continue sliding scale short acting insulin as his family apparently will bring in his home supply to refill his pump. PD continues and patient should have catheter care at PD exit site with antibiotic. Patient with chest x-ray that shows some form of pneumonia. We will offer a sputum culture induced by respiratory services to send for sample. Patient has been scheduled and tested for multiple COVID tests and have been negative. Ongoing care continues complex management and medical supervision is highly crucial and indicated. 06/29/2022 - Admission to [facility] - (Admission Data below). DAPT on ASA and Plavix. Pt appears ill. Pt with PD cath and DM pump. Discussed care at length with bedside RN and RESPlead. On going aggressive medical mgt continues to optimize pt for continued success in the comprehensive rehab course. Complex needs are noted. Reviewed extensive records from [facility] and daughter says BIPAP settings. 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 Anemia of chronic renal failure, stage 4 (severe) Hyperlipidemia- HCTZ, HTN (hypertension) Diabetes mellitus BEN (obstructive sleep apnea) Gout Congestive heart failure Hypertensive kidney disease with end-stage renal disease ESRD (end stage renal disease) Diabetic peripheral neuropathy Ketoacidosis due to type 1 diabetes mellitus Stage 5 chronic kidney disease Right upper quadrant pain Proliferative diabetic retinopathy associated with type 2 diabetes mellitus Pre-transplant evaluation for kidney transplant History of coronary artery stent placement History of deep vein thrombosis Hypersomnia Gastritis Gastroesophageal reflux disease without esophagitis Dystrophia unguium Dysphagia- ZINC PLATER to assess and follow Cardiogenic shock Anemia in chronic kidney disease Acute on chronic HFrEF (heart failure with reduced ejection fraction) Abnormal cardiovascular stress test Acute hypoxemic respiratory failure DVT PRX: Heparin, SCDS Electrolyte derangement-Bind and Replenish Anemia-Follow H/H. Transfuse when clinically indicated Pain Control- titration throughout acute inpatient rehab process Nausea-Zofran prn Constipation-Bowel Regimen, follow output daily Polypharmacy-Follow. Medications fully reconciled Vitamin deficiency-Supplement Nursing Instructions: Incentive spirometry, I/O's, Vitals every 8 hours, Nutrition and ADLs Record Review: moderate Old medical records, labs, preadmission screening, previous radiology studies. Nutritional support and Blood sugar management - encourage adequate diet, caloric intake, fluid balance Avoid hypoglycemia Medication Profile: Allergies Allergen Reactions Allopurinol Shortness of Breath/Wheezing and Other (See Comments) Shuts my kidneys down per patient. Chlorhexidine Other (See Comments) Skin peels all over and becomes tender Iodinated Contrast Media Rash Ticagrelor Rash Scheduled Medication Profile: Facility-Administered Medications as of 07/01/2022 Medication Dose Frequency Provider Last Rate Last Admin [COMPLETED] potassium chloride (KLOR-CON) SR tablet 40 mEq 40 mEq ONE time only Avni Clifford PA 40 mEq at 07/01/22 1100 tiZANidine (ZANAFLEX) tablet 2 mg 2 mg every 8 hours Avni Clifford PA 2 mg at 07/01/22 0507 calcium acetate (CALPHRON) tablet 667 mg 667 mg TID BEFORE meals Avni Clifford PA 667 mg at 07/01/22 1130 peg [id number] 1-0.2-0.2 % ophthalmic solution 1 Drop 1 Drop QID Avni Clifford PA 1 Drop at 07/01/22 0809 calcitRIOL (ROCALTROL) capsule 0.25 mcg 0.25 mcg daily Avni Clifford PA 0.25 mcg at 07/01/22 0808 heparin injection 5,000 Units 5,000 Units every 8 hours Avni Clifford PA 5,000 Units at 07/01/22 0508 aspirin (JOSEPH CHEWABLE) chewable tablet 81 mg 81 mg daily Avni Clifford PA 81 mg at 07/01/22 0900 atorvastatin (LIPITOR) tablet 80 mg 80 mg daily Avni Clifford PA 80 mg at 07/01/22 0900 clopidogreL (PLAVIX) tablet 75 mg 75 mg daily Avni Clifford PA 75 mg at 07/01/22 0808 nitroglycerin (NITROSTAT) tablet 0.4 mg 0.4 mg every 5 minutes PRN Avni Clifford PA [Held by Provider] isosorbide mononitrate (IMDUR) SR 24 hour tablet 30 mg 30 mg daily Avni Clifford PA 30 mg at 06/30/22 0800 [Held by Provider] losartan (COZAAR) tablet 12.5 mg 12.5 mg daily Avni Clifford PA 12.5 mg at 06/30/22 0801 pantoprazole (PROTONIX) tablet 40 mg 40 mg daily Avni Clifford PA 40 mg at 07/01/22 0507 metoprolol tartrate (LOPRESSOR) tablet 25 mg 25 mg BID Avni Clifford PA 25 mg at 06/30/22 0802 gentamicin (GARAMYCIN) 0.1 % topical ointment daily Avni Clifford PA Given at 06/30/22 0900 naloxone (NARCAN) 0.4 mg/mL injection 0.1 mg 0.1 mg see admin instructions Avni Clifford PA ondansetron (ZOFRAN ODT) tablet 4 mg 4 mg every 6 hours PRN Avni Clifford PA prochlorperazine maleate (COMPAZINE) tablet 10 mg 10 mg every 6 hours PRN Avni Clifford PA albuterol (PROVENTIL,VENTOLIN) 2.5 mg /3 mL (0.083 %) inhalation solution 2.5 mg 2.5 mg resp, every6 hours PRN Avni Clifford PA bisacodyL (DULCOLAX) delayed release tablet 5 mg 5 mg daily PRN Avni Clifford PA bisacodyL (DULCOLAX) rectal suppository 10 mg 10 mg daily PRN Avni Clifford PA aluminum - magnesium - simethicone (MYLANTA) 200-200-20 mg/5 mL oral suspension 30 mL 30 mL every 4hours PRN Avni Clifford PA calcium as carbonate (TUMS) 500 mg (200 mg elemental) chewable tablet 200 mg 200 mg every 4 hours PRN Avni Clifford PA folic acid-Vit B6-Vit B12 (FOLTX) per tablet 1 Tablet 1 Tablet daily Avni Clifford PA 1 Tablet at 07/01/22 0806 dextrose 5% - sodium chloride 0.9% infusion see admin instructions Avni Clifford PA dextrose 50% (D50) syringe 12.5 Gram 12.5 Gram see admin instructions Avni Clifford PA dextrose 50% (D50) syringe 25 Gram 25 Gram see admin instructions Avni Clifford PA glucagon human recombinant (GLUCAGEN) 1 mg/mL injection 1 mg 1 mg see admin instructions Avni Clifford PA dextrose 50% (D50) syringe 12.5 Gram 12.5 Gram see admin instructions Avni Clifford PA dextrose 50% (D50) syringe 25 Gram 25 Gram see admin instructions Avni Clifford PA glucagon human recombinant (GLUCAGEN) 1 mg/mL injection 1 mg 1 mg see admin instructions Avni Clifford PA insulin aspart pump basal (NovoLOG) 100 unit/mL infusion TID Avni Clifford PA 6.5 Units/hr at 07/01/22 0801 insulin lispro (HumaLOG) variable dose injection QID WITH meals and HS Avni Clifford PA colchicine (COLCRYS) tablet 0.6 mg 0.6 mg every 48 hours Avni Clifford PA 0.6 mg at 06/30/22 0806 doxycycline monohydrate (MONODOX) capsule 50 mg 50 mg every 12 hours (2 times daily) Avni Clifford PA 50 mg at 07/01/22 0810 furosemide (LASIX) tablet 80 mg 80 mg BID, 7 hours apart Avni Clifford PA 80 mg at 07/01/22 0808 ezetimibe (ZETIA) tablet 10 mg 10 mg daily Avni Clifford PA 10 mg at 07/01/22 0806 ranolazine ER (RANEXA) SR 12 hour tablet 500 mg 500 mg every 12 hours (2 times daily) Avni Clifford PA 500 mg at 07/01/22 0900 [Held by Provider] hydrALAZINE (APRESOLINE) tablet 100 mg 100 mg every 8 hours Avni Clifford PA cetirizine (ZyrTEC) tablet 5 mg 5 mg daily PRN Avni Clifford PA 5 mg at 06/30/22 0801 cloNIDine ([id number]) 0.1 mg/24 hr transdermal patch 1 Patch 1 Patch every 7 days Avni Clifford PA 1 Patch at 06/30/22 0547 [COMPLETED] New Admission Meds - retrieve upon admission every 4 hours Avni Clifford PA Given at 06/29/22 1600 melatonin tablet 6 mg 6 mg daily BEDTIME Avni Clifford PA 6 mg at 06/30/222016 acetaminophen (TYLENOL) tablet 650 mg 650 mg every 6 hours PRN Srinivas Jon MD 650 mg at 06/30/22 08 HYDROcodone-acetaminophen (NORCO) 5-325 mg per tablet 1 Tablet 1 Tablet every 6 hours PRN Srinivas Jon MD 1 Tablet at 06/30/222016 Admission Data : CC: Debility/Cardiogenic shock/HTN HPI: Juvenal Daigle is a 51 y.o. male who recently has been admitted to [facility] for comprehensive rehabilitation - multiple complex medical issues will impact medical management throughout the acute inpatient rehabilitation process. Pt has a significant medical history including but not limited to CHF- EF 50%, Afib, HTN, CAD, T1DM, ESRD on PD, HLD, GERD, hyperparathyroidism, DDD, OA, gout, BEN on CPAP, who initially presented to [facility] for n/v, onset three days, with associated chest pain, generalized weakness, chills, ROONEY. Symptoms were relieved with sublingual ntg. His labs were notable for trop 1.0-->1.09-->0.729, BNP 24438. He had a CT CAP showing cholelithiasis and likely PNA. RUQUS showed distended gallbladder with gallstones and gallbladder wall thickening, recommend ed HIDA scan. He was treated with ctx/azithromycin. Pt was started on a heparin gtt. Cath on 06/03 showed previous PCI to proximal and distal right coronary patent, 99% ostial circumflex stenosis as well as 90% circumflex lesion after origin of largest OM branch, mild diffuse disease in LAD which does not appear to be flow limiting. Pt was recommended PCI of left circumflex as optimal treatment. Pt was transfered to [facility] on 06/05. Upon arrival EKG showed sinus bradycardia, 1st deg AV block. ACT was called for substernal chest pressure and hypoxemia, he was placed on BiPAP with improvement in oxygen saturation and transferred to the MICU, where he was placed on AVAPS. CXR showed significantly worsened pulmonary edema. Trop 4797 -> 4266 in the MICU, EKG was unchanged. Pt was started onmero for cholecystitis. He was continued on heparin gtt, started on nitro gtt for BP control and O2was weaned to nasal cannula. Pt underwent complex PCI 06/07, PCI revealed ostial circ lesion of 90%, large OM with 70% narrowing. Patient became hypotensive and hypoxemic requiring levo and epi gtt. The patient was intubated. The left dominant circumflex and OM were then stented. Impella was inserted. A swan liv catheter and L IJ trialysis were also placed. Impella was weaned slowly and removed 06/10. Pressors and vent settings were weaned slowly, and patient was ultimately extubated on 06/20.Passed MBS and was started on a PO DM diet. Pt is tolerating well. Pt is participating in therapy and is able to tolerate 3hrs of therapy a day. Pt has been deemed medically stable and appropriate for comprehensive rehab. PMR MD to have formal referral placed. Past Medical History: Diagnosis Date Amplified musculoskeletal pain Diabetes mellitus Heart attack 04/14/2017 HTN (hypertension) Hyperlipidemia Thromboembolism Past Surgical History: Procedure Laterality Date HX ANGIOPLASTY N/A 04/17/2017 Family history Non contributory Social History Tobacco Use Smoking status: Never Smokeless tobacco: Never Substance Use Topics Alcohol use: No Drug use: No reports that he has never smoked. He has never used smokeless tobacco. He reports that he does not drink alcohol and does not use drugs. Review of Systems: No new fever or chills, worsening cough or colds, chest pain No new abdominal pain, heat or cold intolerance + fatigue, cough, weakness, Objective Data: Vitals With Comments 07/01/2022 0400 06/30/2022 2000 06/30/2022 1500 06/30/2022 0800 BP: 153/81 125/72 114/67 111/71 Pulse: 67 66 70 74 Resp: 18 18 -- Temp: 98.6 ??F (37 ??C) 99.3 ??F (37.4 ??C) 97.9 ??F (36.6 ??C) -- Temp src: Oral Oral Oral -- SpO2: 97 % 90 % 95 % -- 07/01 07 - 07/01 185 In: 120 [P.O.:120] Out: - General alert, awake, no cardiopulmonary distress, weakness Lungs Decreased breath sounds at bases Heart regular rate and rhythm Abdomen soft, non-tender, with bowel sounds, + PD cath, + DM pump Extremities pulses noted, no cyanosis Labs ordered and awaiting results - CBC result (most recent): Lab Results Component Value Date/Time WBC 3.5 (L) 07/01/2022 05:19 AM HGB 8.7 (L) 07/01/2022 05:19 AM HCT 26.9 (L) 07/01/2022 05:19 AM PLT 382 (H) 07/01/2022 05:19 AM MCV 93.7 07/01/2022 05:19 AM BMP result (most recent): Lab Results Component Value Date/Time NA 131 (L) 07/01/2022 05:19 AM K 3.3 (L) 07/01/2022 05:19 AM CL 91 (L) 07/01/2022 05:19 AM CO2 26 07/01/2022 05:19 AM CA 9.0 07/01/2022 05:19 AM BUN 48 (H) 07/01/2022 05:19 AM CREAT 9.56 (H) 07/01/2022 05:19 AM GLUCOSE 273 (H) 07/01/2022 05:19 AM ANIONGAP 14 07/01/2022 05:19 AM CMP result (most recent): Lab Results Component Value Date/Time NA 131 (L) 07/01/2022 05:19 AM K 3.3 (L) 07/01/2022 05:19 AM CL 91 (L) 07/01/2022 05:19 AM CO2 26 07/01/2022 05:19 AM CA 9.0 07/01/2022 05:19 AM BUN 48 (H) 07/01/2022 05:19 AM CREAT 9.56 (H) 07/01/2022 05:19 AM GLUCOSE 273 (H) 07/01/2022 05:19 AM TOTALPROTEIN 6.6 (L) 06/30/2022 05:46 AM ALBUMIN 2.9 (L) 07/01/2022 05:19 AM BILITOTAL 0.4 06/30/2022 05:46 AM ALKPHOS 106 06/30/2022 05:46 AM AST 23 06/30/2022 05:46 AM ALT 31 06/30/2022 05:46 AM ANIONGAP 14 07/01/2022 05:19 AM HEPATIC function panel result (most recent): Lab Results Component Value Date/Time ALT 31 06/30/2022 05:46 AM AST 23 06/30/2022 05:46 AM ALKPHOS 106 06/30/2022 05:46 AM Hemoglobin A1C result (most recent): No results found for: HGBA1C, [id number] LIPID panel result (most recent): No results found for: CHOLTOT, HDL, LDLCALC, LDLDIRECT, TRIGLYCERIDE UA results do not (most recent): Lab Results Component Value Date/Time PHUA 5.0 06/30/2022 02:55 PM SGUR 1.024 06/30/2022 02:55 PM URINELEUKOC Negative 06/30/2022 02:55 PM NITRITEUA Negative 06/30/2022 02:55 PM KETONEURINE Negative 06/30/2022 02:55 PM PROTEINUA Negative 06/30/2022 02:55 PM GLUUA 2+ (A) 06/30/2022 02:55 PM BLOODUA Negative 06/30/2022 02:55 PM No results found for: URINEC, CULTURE No results found for this or any previous visit. Hospitalist Statement: The Internal Medicine team participates in patient care to directly impact the acute rehabilitationprocess. Daily rounds include discussion of I and Os, avoiding hypotension and hypoglycemia. Daily medication review completed. Ongoing efforts to coordinate care, maintain euvolemia, adequate nutrition, electrolyte management, appropriate BP management, overall stability, and management of co-morbidites individually are being dictated by clinical progress. Documentation partially completed using dictation services and EMR. Please excuse any typographicalerrors that may have occurred. LESLY Ayala MD Internal Medicine Director // T CYTOLOGIST * Srinivas Jon MD - 07/01/2022 10:59 AM CST REHAB/PMA&R DAILY PROGRESS NOTE Date: 07/01/2022 Time: 10:59 AM Subjective: Slept. No overnight events. Intermittent symptomatic orthostasis in PT. IM and renal input noted and appreciated. ESRD on PD. Renal consulted. Tolerates initial therapy. Labs reviewed. Function status and progress towards rehab goals: PT: Completed sit to stand transfers with WWR and CGA, continues to report dizziness upon standing.BP dropped to 86/56 on second stand, unable to collect BP during 1st stand due to patient's reported dizziness and requesting to sit. OT: min A-mod A Review of System: No fever, nausea/vomiting, chest pain, or shortness of breath. Exam: BP (!) 153/81 (BP Location: Right arm, Patient Position (BP): Supine) Pulse 67 Temp 98.6 ??F (37 ??C) (Oral) Resp 18 Ht 5' 10 (1.778 m) Wt 117.3 kg (258 lb 8 oz) SpO2 97% BMI 37.09 kg/m?? General appearance: alert, in no distress Skin/sores/incisions: No rashes or lesions; Musculoskeletal: LE edema Neurologic: Mental status: Alert, awake, responsive, oriented to time and place and person, attentive. Language: Fluent, good naming and good repetition. Cranial nerves: Pupils are normal reactive to light EOM: full, normal visual charles No ptosis Normal facial sensation and no facial weakness Normal hearing Muscle strength: 5/5 in UE/LExts proximally and distally bilaterally. Psych: affect is euthymic. Current Medications: Facility-Administered Medications as of 07/01/2022 Medication Dose Frequency Provider Last Rate Last Admin potassium chloride (KLOR-CON) SR tablet 40 mEq 40 mEq ONE time only Avni Clifford PA tiZANidine (ZANAFLEX) tablet 2 mg 2 mg every 8 hours Avni Clifford PA 2 mg at 07/01/22 0507 calcium acetate (CALPHRON) tablet 667 mg 667 mg TID BEFORE meals Avni Clifford PA 667 mg at 07/01/22 0810 peg [id number] 1-0.2-0.2 % ophthalmic solution 1 Drop 1 Drop QID Avni Clifford PA 1 Drop at 07/01/22 0809 calcitRIOL (ROCALTROL) capsule 0.25 mcg 0.25 mcg daily Avni Clifford PA 0.25 mcg at 07/01/22 0808 heparin injection 5,000 Units 5,000 Units every 8 hours Avni Clifford PA 5,000 Units at 07/01/22 0508 aspirin (JOSEPH CHEWABLE) chewable tablet 81 mg 81 mg daily Avni Clifford PA 81 mg at 07/01/22 0900 atorvastatin (LIPITOR) tablet 80 mg 80 mg daily Avni Clifford PA 80 mg at 07/01/22 0900 clopidogreL (PLAVIX) tablet 75 mg 75 mg daily Avni Clifford PA 75 mg at 07/01/22 0808 nitroglycerin (NITROSTAT) tablet 0.4 mg 0.4 mg every 5 minutes PRN Avni Clifford PA [Held by Provider] isosorbide mononitrate (IMDUR) SR 24 hour tablet 30 mg 30 mg daily Avni Clifford PA 30 mg at 06/30/22 0800 [Held by Provider] losartan (COZAAR) tablet 12.5 mg 12.5 mg daily Avni Clifford PA 12.5 mg at 06/30/22 0801 pantoprazole (PROTONIX) tablet 40 mg 40 mg daily Avni Clifford PA 40 mg at 07/01/22 0507 metoprolol tartrate (LOPRESSOR) tablet 25 mg 25 mg BID Avni Clifford PA 25 mg at 06/30/22 0802 gentamicin (GARAMYCIN) 0.1 % topical ointment daily Avni Clifford PA Given at 06/30/22 0900 naloxone (NARCAN) 0.4 mg/mL injection 0.1 mg 0.1 mg see admin instructions Avni Clifford PA ondansetron (ZOFRAN ODT) tablet 4 mg 4 mg every 6 hours PRN Avni Clifford PA prochlorperazine maleate (COMPAZINE) tablet 10 mg 10 mg every 6 hours PRN Avni Clifford PA albuterol (PROVENTIL,VENTOLIN) 2.5 mg /3 mL (0.083 %) inhalation solution 2.5 mg 2.5 mg resp, every6 hours PRN Avni Clifford PA bisacodyL (DULCOLAX) delayed release tablet 5 mg 5 mg daily PRN Avni Clifford PA bisacodyL (DULCOLAX) rectal suppository 10 mg 10 mg daily PRN Avni Clifford PA aluminum - magnesium - simethicone (MYLANTA) 200-200-20 mg/5 mL oral suspension 30 mL 30 mL every 4hours PRN Avni Clifford PA calcium as carbonate (TUMS) 500 mg (200 mg elemental) chewable tablet 200 mg 200 mg every 4 hours PRN Avni Clifford PA folic acid-Vit B6-Vit B12 (FOLTX) per tablet 1 Tablet 1 Tablet daily Avni Clifford PA 1 Tablet at 07/01/22 0806 dextrose 5% - sodium chloride 0.9% infusion see admin instructions Avni Clifford PA dextrose 50% (D50) syringe 12.5 Gram 12.5 Gram see admin instructions Avni Clifford PA dextrose 50% (D50) syringe 25 Gram 25 Gram see admin instructions Avni Clifford PA glucagon human recombinant (GLUCAGEN) 1 mg/mL injection 1 mg 1 mg see admin instructions Avni Clifford PA dextrose 50% (D50) syringe 12.5 Gram 12.5 Gram see admin instructions Avni Clifford PA dextrose 50% (D50) syringe 25 Gram 25 Gram see admin instructions Avni Clifford PA glucagon human recombinant (GLUCAGEN) 1 mg/mL injection 1 mg 1 mg see admin instructions Avni Clifford PA insulin aspart pump basal (NovoLOG) 100 unit/mL infusion TID Avni Clifford PA 6.5 Units/hr at 07/01/22 0801 insulin lispro (HumaLOG) variable dose injection QID WITH meals and HS Avni Clifford PA colchicine (COLCRYS) tablet 0.6 mg 0.6 mg every 48 hours Avni Clifford PA 0.6 mg at 06/30/22 0806 doxycycline monohydrate (MONODOX) capsule 50 mg 50 mg every 12 hours (2 times daily) Avni Clifford PA 50 mg at 07/01/22 0810 furosemide (LASIX) tablet 80 mg 80 mg BID, 7 hours apart Avni Clifford PA 80 mg at 07/01/22 0808 ezetimibe (ZETIA) tablet 10 mg 10 mg daily Avni Clifford PA 10 mg at 07/01/22 0806 ranolazine ER (RANEXA) SR 12 hour tablet 500 mg 500 mg every 12 hours (2 times daily) Avni Clifford PA 500 mg at 07/01/22 0900 [Held by Provider] hydrALAZINE (APRESOLINE) tablet 100 mg 100 mg every 8 hours Avni Clifford PA cetirizine (ZyrTEC) tablet 5 mg 5 mg daily PRN Avni Clifford PA 5 mg at 06/30/22 0801 cloNIDine ([id number]) 0.1 mg/24 hr transdermal patch 1 Patch 1 Patch every 7 days Avni Clifford PA 1 Patch at 06/30/22 0547 [COMPLETED] New Admission Meds - retrieve upon admission every 4 hours Avni Clifford PA Given at 06/29/22 1600 melatonin tablet 6 mg 6 mg daily BEDTIME Avni Clifford PA 6 mg at 06/30/222016 acetaminophen (TYLENOL) tablet 650 mg 650 mg every 6 hours PRN Srinivas Jon MD 650 mg at 06/30/22 0801 HYDROcodone-acetaminophen (NORCO) 5-325 mg per tablet 1 Tablet 1 Tablet every 6 hours PRN Srinivas Jon MD 1 Tablet at 06/30/222016 Data: UA result (most recent): Lab Results Component Value Date/Time PHUA 5.0 06/30/2022 02:55 PM SGUR 1.024 06/30/2022 02:55 PM URINELEUKOC Negative 06/30/2022 02:55 PM NITRITEUA Negative 06/30/2022 02:55 PM KETONEURINE Negative 06/30/2022 02:55 PM PROTEINUA Negative 06/30/2022 02:55 PM GLUUA 2+ (A) 06/30/2022 02:55 PM BLOODUA Negative 06/30/2022 02:55 PM Urine Random Protein result: No results found for: PROTEINUR CBC result (most recent): Lab Results Component Value Date/Time WBC 3.5 (L) 07/01/2022 05:19 AM HGB 8.7 (L) 07/01/2022 05:19 AM HCT 26.9 (L) 07/01/2022 05:19 AM PLT 382 (H) 07/01/2022 05:19 AM MCV 93.7 07/01/2022 05:19 AM BMP result (most recent): Lab Results Component Value Date/Time NA 131 (L) 07/01/2022 05:19 AM K 3.3 (L) 07/01/2022 05:19 AM CL 91 (L) 07/01/2022 05:19 AM CO2 26 07/01/2022 05:19 AM CA 9.0 07/01/2022 05:19 AM BUN 48 (H) 07/01/2022 05:19 AM CREAT 9.56 (H) 07/01/2022 05:19 AM GLUCOSE 273 (H) 07/01/2022 05:19 AM ANIONGAP 14 07/01/2022 05:19 AM CMP result (most recent): Lab Results Component Value Date/Time NA 131 (L) 07/01/2022 05:19 AM K 3.3 (L) 07/01/2022 05:19 AM CL 91 (L) 07/01/2022 05:19 AM CO2 26 07/01/2022 05:19 AM CA 9.0 07/01/2022 05:19 AM BUN 48 (H) 07/01/2022 05:19 AM CREAT 9.56 (H) 07/01/2022 05:19 AM GLUCOSE 273 (H) 07/01/2022 05:19 AM TOTALPROTEIN 6.6 (L) 06/30/2022 05:46 AM ALBUMIN 2.9 (L) 07/01/2022 05:19 AM BILITOTAL 0.4 06/30/2022 05:46 AM ALKPHOS 106 06/30/2022 05:46 AM AST 23 06/30/2022 05:46 AM ALT 31 06/30/2022 05:46 AM ANIONGAP 14 07/01/2022 05:19 AM LIPID panel result (most recent): No results found for: CHOLTOT, HDL, LDLCALC, LDLDIRECT, TRIGLYCERIDE GLUCOSE result (most recent): Lab Results Component Value Date/Time GLUCOSE 273 (H) 07/01/2022 05:19 AM Coagulation result (most recent): No results found for: PT, INR, APTT Assessment and Plan: Debility: Continue inpatient comprehensive interdisciplinary rehabilitation to address strengthening, mobility skills, self care, cognitive functioning, speech, communication and swallowing needs. The patient continues to require the interdisciplinary team approach and 24 hour monitoring. CAD, s/p NSTEMI, s/p PCI. Cont asa, metoprolol, statin. Cardiogenic shock Afib: metoprolol, DAPT Acute on chronic systolic CHF: EF 65%: cont lasix, metoprolol, losartan, imdur ESRD, on PD: renal consulted DM: insulin pump at home, resumed per home settings HTN: metoprolol, lasix, clonidine, hydralazine AHRF: pulm toilet, BD prn Dysphagia: resolved, passed MBS 06/21 Severe obsity, BMI 37: encourage weight cessation. DVT Prevention: heparin Pain Management: apap, norco prn Stress ulcer prophylaxis: PPI Bladder management: monitor voiding pattern, monitor bladder scans/PVRs, straight cath per parameters. Bowel management: monitor stooling pattern, continue bowel program adjust laxatives as needed. Code: full F/u: PCP, Aditya Lara MD [phone] Cardiology Endocrinology Srinivas Jon MD T CYTOLOGIST * Rosa Raya LPN - 07/01/2022 6:09 AM CST Patient had a routine night during this 12 hour shift for this nurse. Baseline functioning and interacting with nursing. Dialysis running until 0830 (disconnect), Blood Sugar 232 at the onset of this12 hour shift. 1 unit was placed in acknowledge infusion to add comments. Patient stated he was good. No additional units was given. Patient stated he would let nursing staff know if he did a bolus. Safety / fall precautions followed, call-light in reach. T CYTOLOGIST * Rosa Raya LPN - 07/01/2022 12:44 AM CST Peritoneal Dialysis started at 10:05 pm, it will run for 10.5 hours, and to be disconnected at 8:35am per Dialysis nurse. Patient has had no falls at this time and is fall risk level/color Yellow Interventions in Place: [x] Bed Alarm [] Clip Chair Alarm [] Self-Releasing Belt (a one time order is required) [x] Call Light within reach, return demo by patient completed [] Handoff patient when returning him/her to room [x] Wheelchair/Walker out of reach [x] Low Bed [] Mats in Place [] Observation Room [x] Fall Risk Magnet on Door [x] Fall Risk Magnet on Schedule Board [x] Fall Risk Armband on Patient [] Sitter [] Other If patient is a red fall risk, do not leave alone in the bathroom. Patient Education on Medications Education provided Re: Juvenal Daigle This education was provided to the patient, family Name of medication: All medications due The education included the following: How to identify their medication, Administering their medication, Storage of their medication, Understanding the side effects of their medication Rosa Raya LPN T CYTOLOGIST * Filomena Sibley RN - 06/30/2022 10:24 PM CST Patient alert and oriented, timeout completed and consent given for CCPD prior to connection. CCPD Connected at 22:05. Dressing changed per protocol no signs and symptoms of infection on exit site. Report given to primary nurse,[facility] approximate end time is 08:35 next morning. T CYTOLOGIST * Jasmin Bradley MD - 06/30/2022 5:00 PM CST RENAL He c/o dizzy and lightheaded. BP low and orthostatic. He was on multiple anti- HTN, which were hold. Vitals: Vitals: 06/30/22 0500 06/30/22 0800 06/30/22 1500 06/30/221999 BP: 127/77 111/71 114/67 125/72 BP Location: Right arm Right arm Right arm Patient Position (BP): Supine Supine Supine Pulse: 71 74 70 66 Resp: 18 18 19 Temp: 98.8 ??F (37.1 ??C) 97.9 ??F (36.6 ??C) 99.3 ??F (37.4 ??C) TempSrc: Oral Oral Oral SpO2: 96% 95% 90% Weight: Height: I&O: Intake/Output Summary (Last 24 hours) at 07/01/2022 0006 Last data filed at 06/30/2022 2205 Gross per 24 hour Intake 10884 ml Output 1588 ml Net 48548 ml Examination: RRR, CTA Soft, NT , ND BS+ No edema, PD cath exit site clean and dry Skin warm and dry Labs: Lab Results Component Value Date HGB 8.4 (L) 06/30/2022 , Lab Results Component Value Date WBC 3.7 (L) 06/30/2022 , Lab Results Component Value Date PLT 390 (H) 06/30/2022 , Lab Results Component Value Date NA 133 (L) 06/30/2022 K 3.3 (L) 06/30/2022 CL 90 (L) 06/30/2022 CO2 25 06/30/2022 CA 9.1 06/30/2022 BUN 47 (H) 06/30/2022 CREAT 9.78 (H) 06/30/2022 GLUCOSE 241 (H) 06/30/2022 ANIONGAP 18 (H) 06/30/2022 , No results found for: IRON, TIBC, FERRITIN, Lab Results Component Value Date [id number] 1,178 06/30/2022 , No results found for: FOLATE, FOLATERBC, Lab Results Component Value Date CA 9.1 06/30/2022 , Lab Results Component Value Date CREAT 9.78 (H) 06/30/2022 GFR 6 (L) 06/30/2022 , No results found for: RPR, RPRTITER, No results found for: CHOLTOT, HDL, LDLCALC, LDLDIRECT, TRIGLYCERIDE, No results found for: ESR, ESRPOC, SHAWN, ANASCREEN, ANATITER, RHEUMFACTOR, CRP, CRPHS, [id number], [id number], DNAAB, DNADSAB, CCPABIGG, Lab Results Component Value Date HEPBSAG Non-reactive 06/30/2022 , Assessment/Plan: Patient Active Hospital Problem List: ESRD on CCPD daily --Today use 1.5% and 25% Dianeal half and half with 2.5L dwelling volume. 5 exchange for total 10.5hrs, with no last refill because [facility] has no purple bag --Gentamicin cream and dressing change to PD catheter sites --Avoid hypotension --Avoid all nephrotoxins HLD, CAD, AMI, Acute on chronic HFrEF (heart failure with reduced ejection fraction), cardiogenic shock, s/p stenting< A Fib --Lipitor --ASA --Plavix --Lasix 80 mg bid --Imdur 30 mg qd --Metoprolol 25 mg bid -- Ranexa 500 mg bid Anemia of chronic renal failure --Keep Fe% > 30% --Nephrocaps --Aranesp --Transfusion as needed if hemoglobin less than 8 Chronic embolism and thrombosis of unspecified deep veins of right lower extremity --DVT prophylaxis --Off full AC Hyperlipidemia -- Lipitor HTN (hypertension) --Clonidine patch --Hydralazine 100 mg every 8 hours due to softer blood pressure --Losartan 12.5 mg daily -- 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 Current Code Status -Full Code Thank you for inviting me to participate the care of this patient, will follow up closely with you. JASMIN BRADLEY MD [facility] [phone] T CYTOLOGIST * Conrad Dumont MD - 06/30/2022 11:42 AM CST Internal Medicine/Rehabilitation Service Patient: Juvenal Daigle Date of : 1970 Admission Date: (06/29/2022) Vitals With Comments 06/30/2022 0800 06/30/2022 0500 06/29/2022 1900 06/29/2022 1800 BP: 111/71 127/77 124/71 -- Pulse: 74 71 71 -- Resp: -- 18 18 -- Temp: -- 98.8 ??F (37.1 ??C) 98.6 ??F (37 ??C) -- Temp src: -- Oral Oral -- SpO2: -- 96 % 94 % -- Weight: -- -- -- 117.3 kg (258 lb 8 oz) Height: -- -- -- 5' 10 (1.778 m) DIET DIABETIC Renal, Full Code BIPAP settings. Timeline (including subjective): 06/30/22- Patient notes that he was very uncomfortable with sleep last night. He said his whole body hurt . Patient was offered pain regime per PMR MD. Will offer muscle relaxant as likely related to tone and spasm. Patient apparently is running out of his insulin in his insulin pump. Will offer him long-acting and short acting as directed once his insulin pump has stopped. He has at least 12 more hours of long-acting insulin per his report. We will continue sliding scale short acting insulin as his family apparently will bring in his home supply to refill his pump. PD continues and patient should have catheter care at PD exit site with antibiotic. Patient with chest x-ray that shows some form of pneumonia. We will offer a sputum culture induced by respiratory services to send for sample. Patient has been scheduled and tested for multiple COVID tests and have been negative. Ongoing care continues complex management and medical supervision is highly crucial and indicated. 06/29/2022 [facility]Admission Data below[facility] DAPT on ASA and Plavix. Pt appears ill. Pt with PD cath and DM pump. Discussed care at length with bedside RN and RESPlead. On going aggressive medical mgt continues to optimize pt for continued success in the comprehensive rehab course. Complex needs are noted. Reviewed extensive records from [facility] and daughter says BIPAP settings. 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 Anemia of chronic renal failure, stage 4 (severe) Hyperlipidemia- HCTZ, HTN (hypertension) Diabetes mellitus BEN (obstructive sleep apnea) Gout Congestive heart failure Hypertensive kidney disease with end-stage renal disease ESRD (end stage renal disease) Diabetic peripheral neuropathy Ketoacidosis due to type 1 diabetes mellitus Stage 5 chronic kidney disease Right upper quadrant pain Proliferative diabetic retinopathy associated with type 2 diabetes mellitus Pre-transplant evaluation for kidney transplant History of coronary artery stent placement History of deep vein thrombosis Hypersomnia Gastritis Gastroesophageal reflux disease without esophagitis Dystrophia unguium Dysphagia- ZINC PLATER to assess and follow Cardiogenic shock Anemia in chronic kidney disease Acute on chronic HFrEF (heart failure with reduced ejection fraction) Abnormal cardiovascular stress test Acute hypoxemic respiratory failure DVT PRX: Heparin, SCDS Electrolyte derangement-Bind and Replenish Anemia-Follow H/H. Transfuse when clinically indicated Pain Control- titration throughout acute inpatient rehab process Nausea-Zofran prn Constipation-Bowel Regimen, follow output daily Polypharmacy-Follow. Medications fully reconciled Vitamin deficiency-Supplement Nursing Instructions: Incentive spirometry, I/O's, Vitals every 8 hours, Nutrition and ADLs Record Review: moderate Old medical records, labs, preadmission screening, previous radiology studies. Nutritional support and Blood sugar management - encourage adequate diet, caloric intake, fluid balance Avoid hypoglycemia Medication Profile: Allergies Allergen Reactions Allopurinol Shortness of Breath/Wheezing and Other (See Comments) Shuts my kidneys down per patient. Chlorhexidine Other (See Comments) Skin peels all over and becomes tender Iodinated Contrast Media Rash Ticagrelor Rash Scheduled Medication Profile: Facility-Administered Medications as of 06/30/2022 Medication Dose Frequency Provider Last Rate Last Admin tiZANidine (ZANAFLEX) tablet 2 mg 2 mg every 8 hours Avni Clifford PA calcium acetate (CALPHRON) tablet 667 mg 667 mg TID BEFORE meals Avni Clifford PA 667 mg at 06/30/22 0806 peg [id number] 1-0.2-0.2 % ophthalmic solution 1 Drop 1 Drop QID Avni Clifford PA 1 Drop at 06/30/22 0807 calcitRIOL (ROCALTROL) capsule 0.25 mcg 0.25 mcg daily Avni Clifford PA 0.25 mcg at 06/30/22 0800 heparin injection 5,000 Units 5,000 Units every 8 hours Avni Clifford PA 5,000 Units at 06/30/22 0535 aspirin (JOSEPH CHEWABLE) chewable tablet 81 mg 81 mg daily Avni Clifford PA 81 mg at 06/30/22 0801 atorvastatin (LIPITOR) tablet 80 mg 80 mg daily Avni Clifford PA 80 mg at 06/30/22 08 clopidogreL (PLAVIX) tablet 75 mg 75 mg daily Avni Clifford PA 75 mg at 06/30/22 0801 nitroglycerin (NITROSTAT) tablet 0.4 mg 0.4 mg every 5 minutes PRN Avni Clifford PA [Held by Provider] isosorbide mononitrate (IMDUR) SR 24 hour tablet 30 mg 30 mg daily Avni Clifford PA 30 mg at 06/30/22 0800 [Held by Provider] losartan (COZAAR) tablet 12.5 mg 12.5 mg daily Avni Clifford PA 12.5 mg at 06/30/22 0801 pantoprazole (PROTONIX) tablet 40 mg 40 mg daily Avni Clifford PA 40 mg at 06/30/22 0532 [Held by Provider] metoprolol tartrate (LOPRESSOR) tablet 25 mg 25 mg BID Avni Clifford PA 25 mg at 06/30/22 0802 gentamicin (GARAMYCIN) 0.1 % topical ointment daily Avni Clifford PA Given at 06/30/22 0900 naloxone (NARCAN) 0.4 mg/mL injection 0.1 mg 0.1 mg see admin instructions Avni Clifford PA ondansetron (ZOFRAN ODT) tablet 4 mg 4 mg every 6 hours PRN Avni Clifford PA prochlorperazine maleate (COMPAZINE) tablet 10 mg 10 mg every 6 hours PRN Avni Clifford PA albuterol (PROVENTIL,VENTOLIN) 2.5 mg /3 mL (0.083 %) inhalation solution 2.5 mg 2.5 mg resp, every6 hours PRN Avni Clifford PA bisacodyL (DULCOLAX) delayed release tablet 5 mg 5 mg daily PRN Avni Clifford PA bisacodyL (DULCOLAX) rectal suppository 10 mg 10 mg daily PRN Avni Clifford PA aluminum - magnesium - simethicone (MYLANTA) 200-200-20 mg/5 mL oral suspension 30 mL 30 mL every 4hours PRN Avni Clifford PA calcium as carbonate (TUMS) 500 mg (200 mg elemental) chewable tablet 200 mg 200 mg every 4 hours PRN Avni Clifford PA folic acid-Vit B6-Vit B12 (FOLTX) per tablet 1 Tablet 1 Tablet daily Avni Clifford PA 1 Tablet at 06/30/22 08 dextrose 5% - sodium chloride 0.9% infusion see admin instructions Avni Clifford PA dextrose 50% (D50) syringe 12.5 Gram 12.5 Gram see admin instructions Avni Clifford PA dextrose 50% (D50) syringe 25 Gram 25 Gram see admin instructions Avni Clifford PA glucagon human recombinant (GLUCAGEN) 1 mg/mL injection 1 mg 1 mg see admin instructions Avni Clifford PA dextrose 50% (D50) syringe 12.5 Gram 12.5 Gram see admin instructions Avni Clifford PA dextrose 50% (D50) syringe 25 Gram 25 Gram see admin instructions Avni Clifford PA glucagon human recombinant (GLUCAGEN) 1 mg/mL injection 1 mg 1 mg see admin instructions Avni Clifford PA insulin aspart pump basal (NovoLOG) 100 unit/mL infusion TID Avni Clifford PA 1.5 Units/hr at 06/30/22 0801 insulin lispro (HumaLOG) variable dose injection QID WITH meals and HS Avni Clifford PA colchicine (COLCRYS) tablet 0.6 mg 0.6 mg every 48 hours Avni Clifford PA 0.6 mg at 06/30/22 0806 doxycycline monohydrate (MONODOX) capsule 50 mg 50 mg every 12 hours (2 times daily) Avni Clifford PA 50 mg at 06/30/22 08 furosemide (LASIX) tablet 80 mg 80 mg BID, 7 hours apart Avni Clifford PA 80 mg at 06/30/22 0800 ezetimibe (ZETIA) tablet 10 mg 10 mg daily Avni Clifford PA 10 mg at 06/30/22 08 ranolazine ER (RANEXA) SR 12 hour tablet 500 mg 500 mg every 12 hours (2 times daily) Avni Clifford PA 500 mg at 06/30/22 08 [Held by Provider] hydrALAZINE (APRESOLINE) tablet 100 mg 100 mg every 8 hours Avni Clifford PA cetirizine (ZyrTEC) tablet 5 mg 5 mg daily PRN Avni Clifford PA 5 mg at 06/30/22 08 cloNIDine (IHDREVQX-FIS-1) 0.1 mg/24 hr transdermal patch 1 Patch 1 Patch every 7 days Avni Clifford PA 1 Patch at 06/30/22 0547 [COMPLETED] New Admission Meds - retrieve upon admission every 4 hours Avni Clifford PA Given at 06/29/22 1600 melatonin tablet 6 mg 6 mg daily BEDTIME Avni Clifford PA 6 mg at 06/29/22 2117 acetaminophen (TYLENOL) tablet 650 mg 650 mg every 6 hours PRN Srinivas Jon MD 650 mg at 06/30/22 0801 HYDROcodone-acetaminophen (NORCO) 5-325 mg per tablet 1 Tablet 1 Tablet every 6 hours PRN Srinivas Jon MD 1 Tablet at 06/30/22 0532 Admission Data : CC: Debility/Cardiogenic shock/HTN HPI: Juvenal Daigle is a 51 y.o. male who recently has been admitted to [facility] for comprehensive rehabilitation - multiple complex medical issues will impact medical management throughout the acute inpatient rehabilitation process. Pt has a significant medical history including but not limited to CHF- EF 50%, Afib, HTN, CAD, T1DM, ESRD on PD, HLD, GERD, hyperparathyroidism, DDD, OA, gout, BEN on CPAP, who initially presented to [facility] for n/v, onset three days, with associated chest pain, generalized weakness, chills, ROONEY. Symptoms were relieved with sublingual ntg. His labs were notable for trop 1.0-->1.09-->0.729, BNP 6[address]. He had a CT CAP showing cholelithiasis and likely PNA. RUQUS showed distended gallbladder with gallstones and gallbladder wall thickening, recommend ed HIDA scan. He was treated with ctx/azithromycin. Pt was started on a heparin gtt. Cath on 06/03 showed previous PCI to proximal and distal right coronary patent, 99% ostial circumflex stenosis as well as 90% circumflex lesion after origin of largest OM branch, mild diffuse disease in LAD which does not appear to be flow limiting. Pt was recommended PCI of left circumflex as optimal treatment. Pt was transfered to [facility] on 06/05. Upon arrival EKG showed sinus bradycardia, 1st deg AV block. ACT was called for substernal chest pressure and hypoxemia, he was placed on BiPAP with improvement in oxygen saturation and transferred to the MICU, where he was placed on AVAPS. CXR showed significantly worsened pulmonary edema. Trop 4797 -> 4266 in the MICU, EKG was unchanged. Pt was started onmero for cholecystitis. He was continued on heparin gtt, started on nitro gtt for BP control and O2was weaned to nasal cannula. Pt underwent complex PCI 06/07, PCI revealed ostial circ lesion of 90%, large OM with 70% narrowing. Patient became hypotensive and hypoxemic requiring levo and epi gtt. The patient was intubated. The left dominant circumflex and OM were then stented. Impella was inserted. A swan liv catheter and L IJ trialysis were also placed. Impella was weaned slowly and removed 06/10. Pressors and vent settings were weaned slowly, and patient was ultimately extubated on 06/20.Passed MBS and was started on a PO DM diet. Pt is tolerating well. Pt is participating in therapy and is able to tolerate 3hrs of therapy a day. Pt has been deemed medically stable and appropriate for comprehensive rehab. PMR MD to have formal referral placed. Past Medical History: Diagnosis Date Amplified musculoskeletal pain Diabetes mellitus Heart attack 04/14/2017 HTN (hypertension) Hyperlipidemia Thromboembolism Past Surgical History: Procedure Laterality Date HX ANGIOPLASTY N/A 04/17/2017 Family history Non contributory Social History Tobacco Use Smoking status: Never Smokeless tobacco: Never Substance Use Topics Alcohol use: No Drug use: No reports that he has never smoked. He has never used smokeless tobacco. He reports that he does not drink alcohol and does not use drugs. Review of Systems: No new fever or chills, worsening cough or colds, chest pain No new abdominal pain, heat or cold intolerance + fatigue, cough, weakness, Objective Data: Vitals With Comments 06/30/2022 0800 06/30/2022 0500 06/29/2022 1900 06/29/2022 1800 BP: 111/71 127/77 124/71 -- Pulse: 74 71 71 -- Resp: -- 18 18 -- Temp: -- 98.8 ??F (37.1 ??C) 98.6 ??F (37 ??C) -- Temp src: -- Oral Oral -- SpO2: -- 96 % 94 % -- Weight: -- -- -- 117.3 kg (258 lb 8 oz) Height: -- -- -- 5' 10 (1.778 m) No intake/output data recorded. General alert, awake, no cardiopulmonary distress, weakness Lungs Decreased breath sounds at bases Heart regular rate and rhythm Abdomen soft, non-tender, with bowel sounds, + PD cath, + DM pump Extremities pulses noted, no cyanosis Labs ordered and awaiting results - CBC result (most recent): Lab Results Component Value Date/Time WBC 3.7 (L) 06/30/2022 05:46 AM HGB 8.4 (L) 06/30/2022 05:46 AM HCT 25.6 (L) 06/30/2022 05:46 AM PLT 390 (H) 06/30/2022 05:46 AM MCV 92.8 06/30/2022 05:46 AM BMP result (most recent): Lab Results Component Value Date/Time NA 133 (L) 06/30/2022 05:46 AM K 3.3 (L) 06/30/2022 05:46 AM CL 90 (L) 06/30/2022 05:46 AM CO2 25 06/30/2022 05:46 AM CA 9.1 06/30/2022 05:46 AM BUN 47 (H) 06/30/2022 05:46 AM CREAT 9.78 (H) 06/30/2022 05:46 AM GLUCOSE 241 (H) 06/30/2022 05:46 AM ANIONGAP 18 (H) 06/30/2022 05:46 AM CMP result (most recent): Lab Results Component Value Date/Time NA 133 (L) 06/30/2022 05:46 AM K 3.3 (L) 06/30/2022 05:46 AM CL 90 (L) 06/30/2022 05:46 AM CO2 25 06/30/2022 05:46 AM CA 9.1 06/30/2022 05:46 AM BUN 47 (H) 06/30/2022 05:46 AM CREAT 9.78 (H) 06/30/2022 05:46 AM GLUCOSE 241 (H) 06/30/2022 05:46 AM TOTALPROTEIN 6.6 (L) 06/30/2022 05:46 AM ALBUMIN 3.1 (L) 06/30/2022 05:46 AM BILITOTAL 0.4 06/30/2022 05:46 AM ALKPHOS 106 06/30/2022 05:46 AM AST 23 06/30/2022 05:46 AM ALT 31 06/30/2022 05:46 AM ANIONGAP 18 (H) 06/30/2022 05:46 AM HEPATIC function panel result (most recent): Lab Results Component Value Date/Time ALT 31 06/30/2022 05:46 AM AST 23 06/30/2022 05:46 AM ALKPHOS 106 06/30/2022 05:46 AM Hemoglobin A1C result (most recent): No results found for: HGBA1C, [id number] LIPID panel result (most recent): No results found for: CHOLTOT, HDL, LDLCALC, LDLDIRECT, TRIGLYCERIDE UA results do not (most recent): No results found for: PHUA, SGUR, URINELEUKOC, NITRITEUA, KETONEURINE, PROTEINUA, GLUUA, BLOODUA, WBCU, WBCURINE, RBCUA, BACTERIAUA, UREPITHELIAL No results found for: URINEC, CULTURE No results found for this or any previous visit. Hospitalist Statement: The Internal Medicine team participates in patient care to directly impact the acute rehabilitationprocess. Daily rounds include discussion of I and Os, avoiding hypotension and hypoglycemia. Daily medication review completed. Ongoing efforts to coordinate care, maintain euvolemia, adequate nutrition, electrolyte management, appropriate BP management, overall stability, and management of co-morbidites individually are being dictated by clinical progress. Documentation partially completed using dictation services and EMR. Please excuse any typographicalerrors that may have occurred. LESLY Ayala MD Internal Medicine Director // T CYTOLOGIST * Chirag Pan RCP - 06/30/2022 10:06 AM CST [facility] RT Assess and Treat Worksheet and Note Admitting Diagnosis/Pulmonary History:Cardiogenic shock, BEN, CHF Home Regimen: none Home Oxygen/CPAP/BiPap: Bipap 07/12 Please Call Respiratory therapy at [phone] if you have any questions or a change in patient conditions. 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 Respiratory Orders Comments 1 06/29/22 RHB Bipap 2 3 4 5 6 7 Airway Clearance CXR # WC UC MW BH6 MDI AI date CXR comments A I C Dx P 1 2 3 4 5 6 7 Bronchodilator Therapy # BS RR WOB O2 PH SH PEFR% (for asthma) Score Class 1 2 3 4 5 6 7 Post Discharge Education Plan Pt response: Referrals [id number] - Referral to Smoke Cessation [id number] - Referral to Pulmonary Rehab General Ed [id number] - JESUS Smoking Cessation [id number] - JESUS Nebulizer Ed [id number] - JESUS MDI Ed [id number] - JESUS DPI Ed [id number] - JESUS Spiriva HandiHaler Ed Disease Ed [id number] - JESUS Pneumonia Ed [id number] - JESUS Asthma Ed [id number] - JESUS COPD Ed CXR A = Atelectasis per Chest X-Ray WC = Weak Cough CXR I = Infiltrates per Chest X-Ray UC = Pt gets up in chair during the day CXR C = Consolidation per Chest X-Ray MW = Muscular Weakness Dx P = Pneumonia on Hospital Problem list BH6 = 6 sec breath hold on MDI technique Score PH = Score per Pulmonary History [place] = MDI independent Score WOB = Score per Work of Breathing AI = Acapella independent Score RR = Score per Respiratory Rate Score O2 = Score per Oxygen requirement Score BS = Score per Breathsounds Score SH = Score per Smoking History T CYTOLOGIST * Chirag aPn RCP - 06/30/2022 10:05 AM CST Images from the original note were not included. Respiratory Therapy Assess and Treat Protocol- [facility] ORDERS ARE ENTERED ???PER PROTOCOL?? Enter the protocol in the patient???s electronic health record using [employer]: .rtassessandtreatprotocol Respiratory Therapy orders: Requires a written order for Assess and Treat Protocol (RT41) or IP Consult to Respiratory Therapy (CON21) by the physician or the physician butcher scullion. Oxygen desaturation studies (walk studies) must be ordered by the physician unless the IP Consult for Respiratory Therapy includes a statement requesting a walk study if necessary Bronchodilators will be ordered based on classifications CLASSIFICATION *COPD patients may use Atrovent *Asthma patients in Exacerbation may use Atrovent CLASS/SCORE FREQUENCY MDI AEROSOL HOME THERAPY Class 0/ 0-4 *If patient conditions worsens then reassess no therapy indicated Home Therapy orders can be adhered to as long as the severity score does not call for more therapy Class 1/ 5-8 *Reassess in 24 hrs. *Reassess in 96 hours hrs. after initial assessment *If pt. requests > 3 txs in 24 hours or condition worsens, then reassess. q6 PRN 2 puffs Albuterol 2.5mg Albuterol Class 2/9-12 *Reassess in 24 hrs * Reassess in 96 hrs after initial assessment. *If patient condition worsens then reassess q6 or QID and q6 PRN 2puffs Albuterol 2.5mg Albuterol Class 3/13-18 *Reassess in 24 hrs * Reassess in 96 hrs after initial assessment. *If patient condition worsens then reassess q4 and q4 PRN 2 puffs Albuterol 2.5 Mg Albuterol Class /19-24 *Reassess in 24 hrs * Reassess in 96 hrs after initial assessment. *If patient condition worsens then reassess CONSULT PHYSICIAN for Escalation of Care Mode of Delivery The mode of medication delivery is determined by patient ability or patient request for a specificdelivery device and ordered as MDI or Nebulizer. The method of delivery may be changed at any time at the discretion of the Respiratory Therapist based on patient need. The method of delivery is not based on the patient???s Classification Metered Dose Inhaler (MDI) is administered when: High Flow Nebulizer (HFN) is administered when: a. Medication is available in an MDI a. Medication is not available in MDI b. Patient is alert, cooperative and able to follow commands/instructions b. Patient is unable to perform an MDI c. Patient is able to take a deep breath and perform a minimum of a 6 second breath hold c. Patientis not able to respond to a verbal command d. Patient demonstrates ability to use MDI with spacer effectively d. Patient???s home regimen is with a nebulizer and the Physician does not desire to change to a MDI e. Patient has existing tracheostomy or artificial airway. e. Patient receiving NIPPV and not able to be removed for MDI 4. Lung expansion or Airway clearance may be ordered with a Frequency of therapy will be TID or match the ordered bronchodilator therapy schedule or Q6 PRN if self directed following the algorithm below. Instructions General Purpose: The Assess & Treat protocol is made up of two branches; both branches of the protocol will be applied for every patient assessment performed. Adult Bronchodilation To provide assessment of patients receiving inhaled medications. To determine appropriate dosage, frequency, and mode of bronchodilator therapy. To assure that patients receive at least the equivalent of their respiratory home regimen. To identify patients who may require education in understanding how, when, or why they take their respiratory medications. Adult Airway Clearance & Lung Expansion To provide assessment of patients in need of airway clearance or lung expansion therapy. To provide various adjuncts to aid in mobilization of secretions and to treat atelectasis. To provide encouragement and aid in patient???s performance of deep breathing exercises. To guide the Respiratory Therapist through an algorithm that determines the best modality for that patient. In addition, each patient ordered into the Assess and Treat Protocol will be evaluated for patient education needs and oxygen desaturation evaluations (walk studies) that ideally need to be met priorto discharge Policy: 1. Requires a written order for Assess and Treat Protocol (RT41) or IP Consult to Respiratory Therapy (CON21) by the physician or the physician butcher scullion. 2. Only licensed Respiratory Therapists will be permitted to assess patients using the standardizedRespiratory Assessment for the Assess & Treat Protocol. 3. A copy of the protocol will be placed in the electronic medical record. Respiratory Therapists are required to use the Assess & Treat Protocol flowsheet and worksheetsto provide appropriate communication between health care providers. An assessment note will also beplaced in the medical record outlining the encounter and treatment plan. Changes in mode, frequency, or dosage will be communicated to all appropriate personnel. The RT Assess and Treat Protocol should be ordered on all patients who received mechanical ventilation and are ready for transfer out of the ICU setting. CVICU patients will be enrolled after Extubation even if they are still in the CVICU. The Assess and Treat Protocol will allow for patients to continue home regimen medications as listed in their DIRECTOR OF CUSTOMER SERVICE medication list as appropriate. Patients in [facility] and any other 23 hour observation unit who receive orders for inhaled medications via MDI will be changed to the liquid/ nebulizer form of the medication (as available) during their stay by the Respiratory Therapist per protocol. Oxygen desaturation studies (walk studies) must be ordered by the physician unless the IP Consult for Respiratory Therapy includes a statement requesting a walk study if necessary. To meet Medicare requirements, walk studies must be performed within 48 hours of discharge. Walk studies are not indicated for patients transitioning to a fdc facility, rehabilitation facility, or who have not required oxygen since admission unless otherwise specified by the physician. ASSESS AND TREAT PROTOCOL-ADULT BRONCHODILATION PROCEDURE Indications: Bronchospasm/wheezing (Reactive Airway Disease, Asthma, Emphysema, Chronic Bronchitis, Bronchiolitis) Current Home Bronchodilator usage including short-acting, long-acting, inhaled corticosteroid, anticholinergic, and combination respiratory medications. Other indications stated in the [place] [employer]???s Clinical Practice Guidelines, GOLD COPD Guidelines, and NHLBI Asthma Guidelines. Precautions: N/A Implementation: Scoring the Patient The Respiratory Therapist will evaluate and score the patient???s respiratory status prior to medication delivery using the protocol???s scoring worksheet (shown below). All patient assessment parameters listed below as ???Items?? are to be evaluated. Determine total score (???Findings?? ) based on total points earned from each respiratory item assessed. CLINICAL FINDING 0 1 2 3 4 POINTS BREATH SOUNDS Clear Diminished unilaterally Diminished bilaterally &/or crackles Absent unilaterally &/or wheezes or rhonchi Absent bilaterally, severely diminished or severe wheezing RESPIRATORY RATE RR 8-20 RR 21-25 RR26-30 RR 31-35 RR > 35 WORK OF BREATHING Regular pattern (NO Distress) Dyspnea on exertion, irregular RR pattern Increased at rest Use of Accessory muscles, prolonged expiration, conversational dyspnea Severe shortness of breath, accessory muscle usage, dyspnea at rest O2 REQUIREMENT NO Oxygen 1-3 Liters (FiO2 = 25-35%) 4-6 Liters (FiO2 = 35-50%) FiO2 = 50-90% FiO2 =90-100% PULMONARY HISTORY / STATUS NO History Pneumonia(uncomplicated) History of Pulmonary disease w/ admission for other reason Pulmonary impairment - Acute or chronic Severe Exacerbation Smoking history NO Smoking Past History of Smoking but has quit > 1 year Smoking history < 1 pack a day Smoking history > 1 pack a day Current smoker > 2 packs per day Classifying the Patient Patients are classified based on their admission diagnosis and the severity score determined by theprotocol???s standardized Respiratory Assessment. This mechanism determines their respiratory system status and the severity of symptoms. Based on this classification score the therapist determines the frequency of medication administration as well as how often they are reassessed. CLASSIFICATION *COPD patients may use Atrovent *Asthma patients in Exacerbation may use Atrovent CLASS/SCORE FREQUENCY MDI AEROSOL HOME THERAPY Class 0/ 0-4 *If patient conditions worsens then reassess no therapy indicated Home Therapy orders can be adhered to as long as the severity score does not call for more therapy Class 1/ 5-8 *Reassess in 24 hrs. *Reassess in 96 hours hrs. after initial assessment *If pt. requests > 3 txs in 24 hours or condition worsens, then reassess. q6 PRN 2 puffs Albuterol 2.5mg Albuterol Class /- *Reassess in 24 hrs * Reassess in 96 hrs after initial assessment. *If patient condition worsens then reassess q6 or QID and q6 PRN 2puffs Albuterol 2.5mg Albuterol Class /-18 *Reassess in 24 hrs * Reassess in 96 hrs after initial assessment. *If patient condition worsens then reassess q4 and q4 PRN 2 puffs Albuterol 2.5 Mg Albuterol Class /- *Reassess in 24 hrs * Reassess in 96 hrs after initial assessment. *If patient condition worsens then reassess CONSULT PHYSICIAN for Escalation of Care Asthma Exacerbation patients may have a Peak flow (PEFR), if patient is able, before and after every treatment Therapy effectiveness will be evaluated by pulmonary assessment and predicted/personal best values. For Asthma Exacerbation patients the dosage may be increased to 5 Mg Albuterol or 8 puffs Albuterol if 1st treatment does not improve breath sounds, PEFR, and patient???s subjective reportof symptom relief. Patients are reassessed per classification with all assessment parameters and given a new score. AnRCP can reassess as needed to manage the needs of the patient. Patients are to be maintained on their home regimen even if their score indicates treatments on a less frequent administration schedule. Patients continuing on Home Regimen will be reassessed after 96 hours and then no further reassessment will occur unless patient condition worsens. The Assess andTreat order may be completed at that time if the patient is being managed by their Cloth Boil Off Machine Operator. Determine Mode of Delivery using chart below. All MDI therapy will be taught with a spacing device. Mode of Delivery The mode of medication delivery is determined by patient ability or patient request for a specific delivery device. The method of delivery may be changed at any time at the discretion of the Respiratory Therapist based on patient need. The method of delivery is not based on the patient???s classification. Metered Dose Inhaler (MDI) is administered when: High Flow Nebulizer (HFN) is administered when: a. Medication is available in an MDI a. Medication is not available in MDI b. Patient is alert, cooperative and able to follow commands/instructions b. Patient is unable to perform an MDI c. Patient is able to take a deep breath and perform a minimum of a 6 second breath hold c. Patientis not able to respond to a verbal command d. Patient demonstrates ability to use MDI with spacer effectively d. Patient???s home regimen is with a nebulizer and the Physician does not desire to change to a MDI e. Patient has existing tracheostomy or artificial airway. e. Patient receiving NIPPV and not able to be removed for MDI 4)Considerations Review patient???s Prior to Admission (DIRECTOR OF CUSTOMER SERVICE) medication list. The Respiratory Therapist will consider ordering any of the following meds based on the patient???s home regimen: Short and long-acting bronchodilators, inhaled corticosteroids, anticholinergics, and combination respiratory medications. Use of the preferred [facility] formulary equivalent should be ordered per Assess and Treat Protocol for use throughout the patients hospital stay. Patients diagnosed with a chronic lung disease, such as COPD or Asthma, will be evaluated for the benefit of a controller medication therapy (long-acting bronchodilators, inhaled corticosteroids, anticholinergics, and combination respiratory medications) if not already on the DIRECTOR OF CUSTOMER SERVICE medication list. The Respiratory Therapist will contact the attending physician if a controller therapy may benefit the patient. Xopenex (Levalbuterol) Orders will be followed as below: See Pharmacy Policy, Section: APPROVED THERAPEUTIC INTERCHANGES FOR [facility] Title: Beta Agonists Patients taking home regimen Xopenex will continue with home regimen and at home frequency as long as there is an order from the physician that includes; do not substitute and rationale for need to use levalbuterol. An adverse reaction or hypersensitivity is demonstrated by a 20% increase in heart rate above baseline during or within 10 minutes of administration of albuterol or tremors/shakiness that is noted bythe therapist or reported by the patient that resolve with the use of Xopenex. If the patent demonstrates hypersensitivity to Albuterol, Xopenex will be used. Patients that score for PRN frequency will be given a PRN treatment with the initial assessment unless the patient refuses the therapy. Contact physician at any time for questions about patient? s assessment. i.e. Assessment score is > 16, unable to determine an assessment parameter, home regimen medications not included in protocol, changes in frequency or delivery method for other inhaled medications which do not include Albuterol or Ipratropium. A Medical Emergency Team may be considered at any time. Relative Contraindications: N/A ASSESS AND TREAT PROTOCOL-ADULT AIRWAY CLEARANCE & LUNG EXPANSION PROCEDURE A: Indications: To aid in the mobilization of retained secretions or for sputum retention not responsive to spontaneous or directed coughing. To treat atelectasis. To optimize delivery of bronchodilators in patients receiving bronchial hygiene therapy. For patients with decreased breath sounds or adventitious sounds suggesting secretions in the airway. For patients with abnormal chest x-ray consistent with atelectasis, mucus plugging, infiltrates, orpneumonia. Precautions: N/A Implementation: Gather patient???s objective data needed for pulmonary assessment to determine appropriate airway clearance or lung expansion intervention. Pulmonary assessment should include pulmonary history, co-morbidities, oxygen requirement, breath sounds, current chest X-ray (CXR), chest CT, patient???s ability to ambulate, the amount, color and quality of sputum being produced, laboratory data, cultures, and any other tests that are being ordered. CXR interpretation terms that require intervention for lung expansion or airway clearance include ???atelectasis?? , ???infiltrate?? , ???consolidation?? , or the suspicion of ???pneumonia?? . Assess patient???s ability to comply with specific optimal respiratory interventions such as: ability to effectively cough, , ability to follow directions, ability to independently perform interventions if applicable, ability to seal a mouthpiece, ability to tolerate specific therapies (such as a vest), and/or patient???s willingness to participate in optimal respiratory plan. Refer to the algorithm below to determine specific respiratory intervention(s) that apply to the patient. 5. Frequency of therapy will be TID or match the ordered bronchodilator therapy Schedule. Criteria for diagnosis of atelectasis (at least one): Radiological interpretation on chest x-ray. Terms to look for include ???infiltrates?? , ???consolidation?? , or ???atelectasis?? . High oxygen requirement. (FIO2 > .50 or flow > 10LPM per HFNC). Absent breath sounds over affected area. If patient is ambulatory, instruct patient in cough and deep breathing, and encourage ambulation. If patient is not ambulatory, use PEP device with or without mask for lung recruitment. Criteria for diagnosis of Pneumonia or for CXR/CT with terms ???infiltrates?? , or ???consolidation?? : Breath sounds that are rhonchi (coarse) that do not clear with cough. If patient has effective cough and is ambulatory, instruct patient in deep breathing and coughing. If patient has effective cough but needs assistance to mobilize sputum, consider IPV, vest or vibratory PEP therapy. If patient has a weak or ineffective cough, consider IPV, vest, or handheld mucous clearance device. If patient has muscular weakness, use Cough Assist and /or Quad Cough. Quad cough will be given on a PRN frequency, and may be used in conjunction with Cough Assist. If patient is unable to achieve a therapeutic benefit of sputum mobilization from these methods dueto the patient???s inability to participate in care, nasal tracheal suctioning may be ordered. Alsoconsider ordering a nasal trumpet to protect nasal passages if frequent suctioning is anticipated. Frequency of therapy will be TID or match the ordered bronchodilator therapy schedule. Therapy will be a minimum TID frequency for 24 hours unless patient is able to follow directions without coaching, demonstrates appropriate technique, and will use the device independently, if applicable. Handheld mucous clearance device, oscillatory PEP device will be ordered at a Q6 PRN frequencyfor patients that demonstrate both optimal technique, and ability for independent use. If there is no patient improvement, or patient does not tolerate chosen modality, choose another modality in the arm of the algorithm and reassess daily. After 48 hours of second modality and no patient improvement, consult the Physician. Criteria for evaluation of strong cough: Ability to take an adequate deep breath as defined above followed by ability to close glottis and produce an audible cough Assessment of Outcome: Change in sputum production; improved ease of clearing secretion, increased volume of secretions during and after treatments. Change in breath sounds - with effective therapy, breath sounds may clear or the movement of secretions into the larger airways may cause a change in breath sounds. Note an effect that coughing may have had on the breath sounds Patient subjective response to therapy. Change in chest x-ray - resolution or improvement of atelectasis and localized infiltrates may be slow or dramatic Relative Contraindications: The following should be carefully evaluated and the patient monitored during therapy. Patients unable to tolerate the increased work of breathing during procedures. Increased work of breathing may lead to hypoventilation and hypercarbia. Intracranial pressure (ICP) > 20 mmHg. may increase during therapy Hemodynamic instability may result in further cardiovascular compromise secondary to potential decreased venous return. Recent facial, oral, and skull surgery or trauma. Acute sinusitis. Epistaxis. Esophageal surgery (positive pressure not allowed, consult physician for vest therapy). Bariatric surgery (positive pressure not allowed, consult physician for vest therapy.) Hemoptysis. Nausea and/or air swallowing, with increased potential of vomiting and aspiration. Known or suspected tympanic membrane rupture or other middle ear pathology. Untreated pneumothorax, flail chest, pulmonary barotraumas. Initiating Department(s): Respiratory Date: 04/19/2009 Department(s) Reviewed: 09/2011, 02/2012, 01/01, 07/04, 10/2015; 11/2016;10/2017 Revised: 09/2011, 02/2012, 01/01, 07/04; 11/2016 Approved by: Medical Executive Committee, Nursing Leadership, Pharmacy & Therapeutics CommitteeDate: 10/2017 T CYTOLOGIST * Srinivas Jon MD - 06/30/2022 9:28 AM CST REHAB/PMA&R DAILY PROGRESS NOTE Date: 06/30/2022 Time: 9:28 AM Subjective: Slept. No overnight events. Orthostatic in PT this am. IM input appreciated. ESRD on PD. Renal consulted. Initial therapy evaluation this am. Labs reviewed. Function status and progress towards rehab goals: therapy eval in progress. Review of System: No fever, nausea/vomiting, chest pain, or shortness of breath. Exam: BP 111/71 Pulse 74 Temp 98.8 ??F (37.1 ??C) (Oral) Resp 18 Ht 5' 10 (1.778 m) Wt 117.3 kg (258 lb 8 oz) SpO2 96% BMI 37.09 kg/m?? General appearance: alert, in no distress Skin/sores/incisions: No rashes or lesions; Musculoskeletal: LE edema Neurologic: Mental status: Alert, awake, responsive, oriented to time and place and person, attentive. Language: Fluent, good naming and good repetition. Cranial nerves: Pupils are normal reactive to light EOM: full, normal visual charles No ptosis Normal facial sensation and no facial weakness Normal hearing Muscle strength: 5/5 in UE/LExts proximally and distally bilaterally. Psych: affect is euthymic. Current Medications: Facility-Administered Medications as of 06/30/2022 Medication Dose Frequency Provider Last Rate Last Admin calcium acetate (CALPHRON) tablet 667 mg 667 mg TID BEFORE meals Avni Clifford PA 667 mg at 06/30/22 0806 peg [id number] 1-0.2-0.2 % ophthalmic solution 1 Drop 1 Drop QID Avni Clifford PA 1 Drop at 06/30/22 0807 calcitRIOL (ROCALTROL) capsule 0.25 mcg 0.25 mcg daily Avni Clifford PA 0.25 mcg at 06/30/22 0800 heparin injection 5,000 Units 5,000 Units every 8 hours Avni Clifford PA 5,000 Units at 06/30/22 0535 aspirin (JOSEPH CHEWABLE) chewable tablet 81 mg 81 mg daily Avni Clifford PA 81 mg at 06/30/22 08 atorvastatin (LIPITOR) tablet 80 mg 80 mg daily Avni Clifford PA 80 mg at 06/30/22 0801 clopidogreL (PLAVIX) tablet 75 mg 75 mg daily Avni Clifford PA 75 mg at 06/30/22 0801 nitroglycerin (NITROSTAT) tablet 0.4 mg 0.4 mg every 5 minutes PRN Avni Clifford PA isosorbide mononitrate (IMDUR) SR 24 hour tablet 30 mg 30 mg daily Avni Clifford PA 30 mg at 06/30/22 0800 losartan (COZAAR) tablet 12.5 mg 12.5 mg daily Avni Clifford PA 12.5 mg at 06/30/22 0801 pantoprazole (PROTONIX) tablet 40 mg 40 mg daily Avni Clifford PA 40 mg at 06/30/22 0532 metoprolol tartrate (LOPRESSOR) tablet 25 mg 25 mg BID Avni Clifford PA 25 mg at 06/30/22 0802 gentamicin (GARAMYCIN) 0.1 % topical ointment daily Avni Clifford PA naloxone (NARCAN) 0.4 mg/mL injection 0.1 mg 0.1 mg see admin instructions Avni Clifford PA ondansetron (ZOFRAN ODT) tablet 4 mg 4 mg every 6 hours PRN Avni Clifford PA prochlorperazine maleate (COMPAZINE) tablet 10 mg 10 mg every 6 hours PRN Avni Clifford PA albuterol (PROVENTIL,VENTOLIN) 2.5 mg /3 mL (0.083 %) inhalation solution 2.5 mg 2.5 mg resp, every6 hours PRN Avni Clifford PA bisacodyL (DULCOLAX) delayed release tablet 5 mg 5 mg daily PRN Avni Clifford PA bisacodyL (DULCOLAX) rectal suppository 10 mg 10 mg daily PRN Avni Clifford PA aluminum - magnesium - simethicone (MYLANTA) 200-200-20 mg/5 mL oral suspension 30 mL 30 mL every 4hours PRN Avni Clifford PA calcium as carbonate (TUMS) 500 mg (200 mg elemental) chewable tablet 200 mg 200 mg every 4 hours PRN Avni Clifford PA folic acid-Vit B6-Vit B12 (FOLTX) per tablet 1 Tablet 1 Tablet daily Avni Clifford PA 1 Tablet at 06/30/22800 dextrose 5% - sodium chloride 0.9% infusion see admin instructions Avni Clifford PA dextrose 50% (D50) syringe 12.5 Gram 12.5 Gram see admin instructions Avni Clifford PA dextrose 50% (D50) syringe 25 Gram 25 Gram see admin instructions Avni Clifford PA glucagon human recombinant (GLUCAGEN) 1 mg/mL injection 1 mg 1 mg see admin instructions Avni Clifford PA dextrose 50% (D50) syringe 12.5 Gram 12.5 Gram see admin instructions Avni Clifford PA dextrose 50% (D50) syringe 25 Gram 25 Gram see admin instructions Avni Clifford PA glucagon human recombinant (GLUCAGEN) 1 mg/mL injection 1 mg 1 mg see admin instructions Avni Clifford PA insulin aspart pump basal (NovoLOG) 100 unit/mL infusion TID Avni Clifford PA 1.5 Units/hr at 06/30/22800 insulin lispro (HumaLOG) variable dose injection QID WITH meals and HS Avni Clifford PA colchicine (COLCRYS) tablet 0.6 mg 0.6 mg every 48 hours Avni Clifford PA 0.6 mg at 06/30/22 0806 doxycycline monohydrate (MONODOX) capsule 50 mg 50 mg every 12 hours (2 times daily) Avni Clifford PA 50 mg at 06/30/22 08 furosemide (LASIX) tablet 80 mg 80 mg BID, 7 hours apart Avni Clifford PA 80 mg at 06/30/22 0800 ezetimibe (ZETIA) tablet 10 mg 10 mg daily Avni Clifford PA 10 mg at 06/30/22 08 ranolazine ER (RANEXA) SR 12 hour tablet 500 mg 500 mg every 12 hours (2 times daily) Avni Clifford PA 500 mg at 06/30/22 08 [Held by Provider] hydrALAZINE (APRESOLINE) tablet 100 mg 100 mg every 8 hours Avni Clifford PA cetirizine (ZyrTEC) tablet 5 mg 5 mg daily PRN Avni Clifford PA 5 mg at 06/30/22 08 cloNIDine ([id number]) 0.1 mg/24 hr transdermal patch 1 Patch 1 Patch every 7 days Avni Clifford PA 1 Patch at 06/30/22 0547 [COMPLETED] New Admission Meds - retrieve upon admission every 4 hours Avni Clifford PA Given at 06/29/22 1600 melatonin tablet 6 mg 6 mg daily BEDTIME Avni Clifford PA 6 mg at 06/29/22 2117 acetaminophen (TYLENOL) tablet 650 mg 650 mg every 6 hours PRN Srinivas Jon MD 650 mg at 06/30/22 0801 HYDROcodone-acetaminophen (NORCO) 5-325 mg per tablet 1 Tablet 1 Tablet every 6 hours PRN Srinivas Jon MD 1 Tablet at 06/30/22 0532 Data: UA result (most recent): No results found for: PHUA, SGUR, URINELEUKOC, NITRITEUA, KETONEURINE, PROTEINUA, GLUUA, BLOODUA, WBCU, WBCURINE, RBCUA, BACTERIAUA, UREPITHELIAL Urine Random Protein result: No results found for: PROTEINUR CBC result (most recent): No results found for: WBC, MANUALWBC, HGB, HGBPOC, HCT, HCTPOC, PLT, MCV BMP result (most recent): No results found for: NA, K, CL, CO2, CA, BUN, CREAT, GLUCOSE, ANIONGAP, BCRATIO CMP result (most recent): No results found for: NA, K, CL, CO2, CA, BUN, CREAT, GLUCOSE, TOTALPROTEIN, ALBUMIN, BILITOTAL, ALKPHOS, AST, ALT, ANIONGAP, BCRATIO LIPID panel result (most recent): No results found for: CHOLTOT, HDL, LDLCALC, LDLDIRECT, TRIGLYCERIDE GLUCOSE result (most recent): No results found for: GLUCOSEF, TOXEKFE1MM, GLUCOSE Coagulation result (most recent): No results found for: PT, INR, APTT Assessment and Plan: Debility: Continue inpatient comprehensive interdisciplinary rehabilitation to address strengthening, mobility skills, self care, cognitive functioning, speech, communication and swallowing needs. The patient continues to require the interdisciplinary team approach and 24 hour monitoring. CAD, s/p NSTEMI, s/p PCI. Cont asa, metoprolol, statin. Cardiogenic shock Afib: metoprolol, DAPT Acute on chronic systolic CHF: EF 65%: cont lasix, metoprolol, losartan, imdur ESRD, on PD: renal consulted DM: insulin pump at home, resumed per home settings HTN: metoprolol, lasix, clonidine, hydralazine AHRF: pulm toilet, BD prn Dysphagia: resolved, passed MBS 06/21 Severe obsity, BMI 37: encourage weight cessation. DVT Prevention: heparin Pain Management: apap, norco prn Stress ulcer prophylaxis: PPI Bladder management: monitor voiding pattern, monitor bladder scans/PVRs, straight cath per parameters. Bowel management: monitor stooling pattern, continue bowel program adjust laxatives as needed. Code: full F/u: PCP, Aditya Lara MD [phone] Cardiology Endocrinology Srinivas Jon MD T CYTOLOGIST * Aviva Alfaro RN - 06/30/2022 6:04 AM CST Patient experienced routine night on this 12 hour shift. Received report. Pt was resting in bed. Complaints of pain everywhere. Pt had already received Tylenol, which he stated was not helping. Notified Dr. Jon. Orders received for Ruth. Last BM 06-29. Pt is oliguric. Pt connected to peritoneal dialysis by leather grader, to be disconnected around 0830 in the AM. Pt has insulin pump. He changed the pod overnight. Pt slept through the night without any issues. Hourly rounding completed this shift. Vital signs stable. No changes to baseline assessment. Pt in no visible distress. Denies any other needs at this time. Patient has had no falls at this time and is fall risk level/color red Interventions in Place: [x] Bed Alarm [] Clip Chair Alarm [] Self-Releasing Belt (a one time order is required) [x] Call Light within reach, return demo by patient completed [] Handoff patient when returning him/her to room [x] Wheelchair/Walker out of reach [] Low Bed [] Mats in Place [] Observation Room [x] Fall Risk Magnet on Door [x] Fall Risk Magnet on Schedule Board [x] Fall Risk Armband on Patient [] Sitter [] Other If patient is a red fall risk, do not leave alone in the bathroom. Patient Education on Medications Education provided Re: Juvenal Daigle This education was provided to the patient Name of medication: all meds given per mar The education included the following: Indication for use Aviva Alfaro RN T CYTOLOGIST * Filomena Sibley RN - 06/29/2022 10:05 PM CST Patient alert and oriented, timeout completed and consent given for CCPD prior to connection. CCPD Connected at 21:50. Dressing changed per protocol no signs and symptoms of infection on exit site. Report given to primary nurse,[facility] approximate end time is 08:20 next morning. T CYTOLOGIST * Maggie Eric LPN - 06/29/2022 6:18 PM CST 9.6u self administered via insulin pump this evening after blood glucose reading of 265. T CYTOLOGIST * Maggie Eric LPN - 06/29/2022 3:48 PM CST UNDRESS AND ASSESS FOR ALL ADMISSIONS Remove all existing dressings and assess all wounds upon admission (unless instructed by physician). Undress and Assess performed by: Maggie Eric LPN bedside Nurse and Brenden Marroquin RN coworker Patient does have skin breakdown. yes If yes Wound care consult was initiated no Description of wound location and appearance: LDA added for any open areas and for non-blanching pink/red or purple areas? yes please note, heels, ankles, knees, hips, sacrum, coccyx, ischium, gluteal, occiput, spine and all skin folds are high risk for skin breakdown and consult wound care services 2. Was wound photographed: yes 3. Was the Skin Care Prevention: Pressure Injury Pathway initiated and appropriate interventions selected? yes i.e. protective foams, turn patient q 2 h, elevate heels etc. 4. Was the Skin Care Treatment: Pressure Injury/Lower Extremity Ulcer Pathway initiated, and appropriate interventions selected? yes (i.e. cleanse and apply silicone border dressing to skin tears, cleanse and apply antifungal to affected skin folds and apply soft linen or Interdry between folds etc.). 5. Is a specialty support surface utilized? yes ie; ROHO overlay for mattress or low air loss mattress: i.e. impaired mobility, bariatric, malnourished, existing pressure injury. 6. Is the patient a paraplegic/quadriplegic? no If so, is spine stable? If spine is stable, place on specialty surface: ie; ROHO overlay for mattress or low air loss mattress. If unstable spine or new spinal injury, consult physician. 7. Is a medical assisting instructor in place? no If yes, remove device/brace/splint to check skin underneath, obtain provider order if necessary. 8. Does the patient have a wound VAC (negative pressure wound therapy)? no If yes, please consult wound care services and follow facility process. 9. Does the patient have an ostomy? no If yes, please consult wound care services. T CYTOLOGIST documented in this encounter H&P Notes * Conrad Dumont MD - 06/29/2022 3:21 PM CST Images from the original note were not included. Internal Medicine/Rehabilitation Service Patient: Juvenal Daigle Date of : 1970 Admission Date: (06/29/2022) Vitals With Comments 06/29/2022 1450 10/30/2019 1000 07/31/2019 0900 BP: 100/62 139/60 120/56 Pulse: 73 56 66 Temp: 98.6 ??F (37 ??C) 98 ??F (36.7 ??C) 98.1 ??F (36.7 ??C) Temp src: Oral Oral Oral SpO2: 98 % 97 % 97 % Weight: -- 124.1 kg (273 lb 11.2 oz) 117.9 kg (260 lb) Height: -- 5' 9 (1.753 m) 5' 9 (1.753 m) Pain Score: -- Five Three Pain Loc: -- ABDOMEN BACK pt. is sore in stomach area due to tube plcaement Patient is complianing of lower back and dizziness DIET DIABETIC Renal, Full Code BIPAP settings. Timeline (including subjective): 06/29/2022 - Admission to [facility] - (Admission Data below). DAPT on ASA and Plavix. Pt appears ill. Pt with PD cath and DM pump. Discussed care at length with bedside RN and RESPlead. On going aggressive medical mgt continues to optimize pt for continued success in the comprehensive rehab course. Complex needs are noted. Reviewed extensive records from [facility] and daughter says BIPAP settings. 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 Anemia of chronic renal failure, stage 4 (severe) Hyperlipidemia- HCTZ, HTN (hypertension) Diabetes mellitus BEN (obstructive sleep apnea) Gout Congestive heart failure Hypertensive kidney disease with end-stage renal disease ESRD (end stage renal disease) Diabetic peripheral neuropathy Ketoacidosis due to type 1 diabetes mellitus Stage 5 chronic kidney disease Right upper quadrant pain Proliferative diabetic retinopathy associated with type 2 diabetes mellitus Pre-transplant evaluation for kidney transplant History of coronary artery stent placement History of deep vein thrombosis Hypersomnia Gastritis Gastroesophageal reflux disease without esophagitis Dystrophia unguium Dysphagia- ZINC PLATER to assess and follow Cardiogenic shock Anemia in chronic kidney disease Acute on chronic HFrEF (heart failure with reduced ejection fraction) Abnormal cardiovascular stress test Acute hypoxemic respiratory failure DVT PRX: Heparin, SCDS Electrolyte derangement-Bind and Replenish Anemia-Follow H/H. Transfuse when clinically indicated Pain Control- titration throughout acute inpatient rehab process Nausea-Zofran prn Constipation-Bowel Regimen, follow output daily Polypharmacy-Follow. Medications fully reconciled Vitamin deficiency-Supplement Nursing Instructions: Incentive spirometry, I/O's, Vitals every 8 hours, Nutrition and ADLs Record Review: moderate Old medical records, labs, preadmission screening, previous radiology studies. Nutritional support and Blood sugar management - encourage adequate diet, caloric intake, fluid balance Avoid hypoglycemia Medication Profile: Allergies Allergen Reactions Allopurinol Shortness of Breath/Wheezing and Other (See Comments) Shuts my kidneys down per patient. Chlorhexidine Other (See Comments) Skin peels all over and becomes tender Iodinated Contrast Media Rash Ticagrelor Rash Scheduled Medication Profile: Facility-Administered Medications as of 06/29/2022 Medication Dose Frequency Provider Last Rate Last Admin calcium acetate (CALPHRON) tablet 667 mg 667 mg TID BEFORE meals Avni Clifford PA peg [id number] 1-0.2-0.2 % ophthalmic solution 1 Drop 1 Drop QID Avni Clifford PA [START ON 06/30/2022] calcitRIOL (ROCALTROL) capsule 0.25 mcg 0.25 mcg daily Avni Clifford PA heparin injection 5,000 Units 5,000 Units every 8 hours Avni Clifford PA [START ON 06/30/2022] aspirin (JOSEPH CHEWABLE) chewable tablet 81 mg 81 mg daily Avni Clifford PA [START ON 06/30/2022] atorvastatin (LIPITOR) tablet 80 mg 80 mg daily Avni Clifford PA [START ON 06/30/2022] clopidogreL (PLAVIX) tablet 75 mg 75 mg daily Avni Clifford PA nitroglycerin (NITROSTAT) tablet 0.4 mg 0.4 mg every 5 minutes PRN Avni Clifford PA [START ON 06/30/2022] isosorbide mononitrate (IMDUR) SR 24 hour tablet 30 mg 30 mg daily Avni Clifford PA [START ON 06/30/2022] losartan (COZAAR) tablet 12.5 mg 12.5 mg daily Avni Clifford PA [START ON 06/30/2022] pantoprazole (PROTONIX) tablet 40 mg 40 mg daily Avni Clifford PA metoprolol tartrate (LOPRESSOR) tablet 25 mg 25 mg BID Avni Clifford PA [START ON 06/30/2022] gentamicin (GARAMYCIN) 0.1 % topical ointment daily Avni Clifford PA acetaminophen (TYLENOL) tablet 650 mg 650 mg every 6 hours PRN Avni Clifford PA naloxone (NARCAN) 0.4 mg/mL injection 0.1 mg 0.1 mg see admin instructions Avni Clifford PA ondansetron (ZOFRAN ODT) tablet 4 mg 4 mg every 6 hours PRN Avni Clifford PA prochlorperazine maleate (COMPAZINE) tablet 10 mg 10 mg every 6 hours PRN Avni Clifford PA albuterol (PROVENTIL,VENTOLIN) 2.5 mg /3 mL (0.083 %) inhalation solution 2.5 mg 2.5 mg resp, every6 hours PRN Avni Clifford PA bisacodyL (DULCOLAX) delayed release tablet 5 mg 5 mg daily PRN Avni Clifford PA bisacodyL (DULCOLAX) rectal suppository 10 mg 10 mg daily PRN Avni Clifford PA aluminum - magnesium - simethicone (MYLANTA) 200-200-20 mg/5 mL oral suspension 30 mL 30 mL every 4hours PRN Avni Clifford PA calcium as carbonate (TUMS) 500 mg (200 mg elemental) chewable tablet 200 mg 200 mg every 4 hours PRN Avni Clifford PA folic acid-Vit B6-Vit B12 (FOLTX) per tablet 1 Tablet 1 Tablet daily Avni Clifford PA dextrose 5% - sodium chloride 0.9% infusion see admin instructions Avni Clifford PA dextrose 50% (D50) syringe 12.5 Gram 12.5 Gram see admin instructions Avni Clifford PA dextrose 50% (D50) syringe 25 Gram 25 Gram see admin instructions Avni Clifford PA glucagon human recombinant (GLUCAGEN) 1 mg/mL injection 1 mg 1 mg see admin instructions Avni Clifford PA dextrose 50% (D50) syringe 12.5 Gram 12.5 Gram see admin instructions Avni Clifford PA dextrose 50% (D50) syringe 25 Gram 25 Gram see admin instructions Avni Clifford PA glucagon human recombinant (GLUCAGEN) 1 mg/mL injection 1 mg 1 mg see admin instructions Avni Clifford PA insulin aspart pump basal (NovoLOG) 100 unit/mL infusion see admin instructions Avni Clifford PA insulin lispro (HumaLOG) variable dose injection QID WITH meals and HS Avni Clifford PA [START ON 06/30/2022] colchicine (COLCRYS) tablet 0.6 mg 0.6 mg every 48 hours Avni Clifford PA doxycycline monohydrate (MONODOX) capsule 50 mg 50 mg every 12 hours (2 times daily) Avni Clifford PA furosemide (LASIX) tablet 80 mg 80 mg BID, 7 hours apart Avni Clifford PA [START ON 06/30/2022] ezetimibe (ZETIA) tablet 10 mg 10 mg daily Avni Clifford PA ranolazine ER (RANEXA) SR 12 hour tablet 500 mg 500 mg every 12 hours (2 times daily) Avni Clifford PA hydrALAZINE (APRESOLINE) tablet 100 mg 100 mg every 8 hours Avni Clifford PA cetirizine (ZyrTEC) tablet 5 mg 5 mg daily PRN Avni Clifford PA [START ON 06/30/2022] cloNIDine ([id number]-4) 0.1 mg/24 hr transdermal patch 1 Patch 1 Patch every 7 days Avni Clifford PA New Admission Meds - retrieve upon admission every 4 hours Avni Clifford PA melatonin tablet 6 mg 6 mg daily BEDTIME Avni Clifford PA Admission Data : CC: Debility/Cardiogenic shock/HTN HPI: Juvenal Daigle is a 51 y.o. male who recently has been admitted to [facility] for comprehensive rehabilitation - multiple complex medical issues will impact medical management throughout the acute inpatient rehabilitation process. Pt has a significant medical history including but not limited to CHF- EF 50%, Afib, HTN, CAD, T1DM, ESRD on PD, HLD, GERD, hyperparathyroidism, DDD, OA, gout, BEN on CPAP, who initially presented to [facility] for n/v, onset three days, with associated chest pain, generalized weakness, chills, ROONEY. Symptoms were relieved with sublingual ntg. His labs were notable for trop 1.0-->1.09-->0.729, BNP 13969. He had a CT CAP showing cholelithiasis and likely PNA. RUQUS showed distended gallbladder with gallstones and gallbladder wall thickening, recommend ed HIDA scan. He was treated with ctx/azithromycin. Pt was started on a heparin gtt. Cath on 06/03 showed previous PCI to proximal and distal right coronary patent, 99% ostial circumflex stenosis as well as 90% circumflex lesion after origin of largest OM branch, mild diffuse disease in LAD which does not appear to be flow limiting. Pt was recommended PCI of left circumflex as optimal treatment. Pt was transfered to [facility] on 06/05. Upon arrival EKG showed sinus bradycardia, 1st deg AV block. ACT was called for substernal chest pressure and hypoxemia, he was placed on BiPAP with improvement in oxygen saturation and transferred to the MICU, where he was placed on AVAPS. CXR showed significantly worsened pulmonary edema. Trop 4797 -> 4266 in the MICU, EKG was unchanged. Pt was started onmero for cholecystitis. He was continued on heparin gtt, started on nitro gtt for BP control and O2was weaned to nasal cannula. Pt underwent complex PCI 06/07, PCI revealed ostial circ lesion of 90%, large OM with 70% narrowing. Patient became hypotensive and hypoxemic requiring levo and epi gtt. The patient was intubated. The left dominant circumflex and OM were then stented. Impella was inserted. A swan liv catheter and L IJ trialysis were also placed. Impella was weaned slowly and removed 06/10. Pressors and vent settings were weaned slowly, and patient was ultimately extubated on 06/20.Passed MBS and was started on a PO DM diet. Pt is tolerating well. Pt is participating in therapy and is able to tolerate 3hrs of therapy a day. Pt has been deemed medically stable and appropriate for comprehensive rehab. PMR MD to have formal referral placed. Past Medical History: Diagnosis Date Amplified musculoskeletal pain Diabetes mellitus Heart attack 04/14/2017 HTN (hypertension) Hyperlipidemia Thromboembolism Past Surgical History: Procedure Laterality Date HX ANGIOPLASTY N/A 04/17/2017 Family history Non contributory Social History Tobacco Use Smoking status: Never Smokeless tobacco: Never Substance Use Topics Alcohol use: No Drug use: No reports that he has never smoked. He has never used smokeless tobacco. He reports that he does not drink alcohol and does not use drugs. Review of Systems: No new fever or chills, worsening cough or colds, chest pain No new abdominal pain, heat or cold intolerance + fatigue, cough, weakness, Objective Data: Vitals With Comments 06/29/2022 1450 10/30/2019 1000 07/31/2019 0900 BP: 100/62 139/60 120/56 Pulse: 73 56 66 Temp: 98.6 ??F (37 ??C) 98 ??F (36.7 ??C) 98.1 ??F (36.7 ??C) Temp src: Oral Oral Oral SpO2: 98 % 97 % 97 % Weight: -- 124.1 kg (273 lb 11.2 oz) 117.9 kg (260 lb) Height: -- 5' 9 (1.753 m) 5' 9 (1.753 m) Pain Score: -- Five Three Pain Loc: -- ABDOMEN BACK pt. is sore in stomach area due to tube plcaement Patient is complianing of lower back and dizziness No intake/output data recorded. General alert, awake, no cardiopulmonary distress, weakness Lungs Decreased breath sounds at bases Heart regular rate and rhythm Abdomen soft, non-tender, with bowel sounds, + PD cath, + DM pump Extremities pulses noted, no cyanosis Labs ordered and awaiting results - CBC result (most recent): No results found for: WBC, MANUALWBC, HGB, HGBPOC, HCT, HCTPOC, PLT, MCV BMP result (most recent): No results found for: NA, K, CL, CO2, CA, BUN, CREAT, GLUCOSE, ANIONGAP, BCRATIO CMP result (most recent): No results found for: NA, K, CL, CO2, CA, BUN, CREAT, GLUCOSE, TOTALPROTEIN, ALBUMIN, BILITOTAL, ALKPHOS, AST, ALT, ANIONGAP, BCRATIO HEPATIC function panel result (most recent): No results found for: ALT, AST, GGT, ALKPHOS Hemoglobin A1C result (most recent): No results found for: HGBA1C, [id number] LIPID panel result (most recent): No results found for: CHOLTOT, HDL, LDLCALC, LDLDIRECT, TRIGLYCERIDE UA results do not (most recent): No results found for: PHUA, SGUR, URINELEUKOC, NITRITEUA, KETONEURINE, PROTEINUA, GLUUA, BLOODUA, WBCU, WBCURINE, RBCUA, BACTERIAUA, UREPITHELIAL No results found for: URINEC, CULTURE No results found for this or any previous visit. Hospitalist Statement: The Internal Medicine team participates in patient care to directly impact the acute rehabilitationprocess. Daily rounds include discussion of I and Os, avoiding hypotension and hypoglycemia. Daily medication review completed. Ongoing efforts to coordinate care, maintain euvolemia, adequate nutrition, electrolyte management, appropriate BP management, overall stability, and management of co-morbidites individually are being dictated by clinical progress. Documentation partially completed using dictation services and EMR. Please excuse any typographicalerrors that may have occurred. Conrad Dumont MD T CYTOLOGIST documented in this encounter Consult Notes * Srinivas Jon MD - 06/29/2022 5:10 PM CSTAssociated Order(s): IP CONSULT TO PHYSICAL MEDICINE REHAB Rehabilitation Facility Consult from a FACE TO FACE Encounter with patient on 06/29/2022 AND Inpatient Rehabilitation Facility Post Admission Physician Assessment Admission Date: 06/29/2022 2:35 PM Chief Complaint: my whole body aches Rehab Diagnosis and Reason for Admission: Debility CAD, s/p NSTEMI, s/p PCI Cardiogenic shock Afib Acute on chronic systolic CHF ESRD, on PD DM HTN AHRF Dysphagia Severe obsity, BMI 37 History of Present Illness: 51 year old male with a history of CHF (EF 50% 2016), Afib (not on AC), HTN, CAD s/p stent 04/06 and3 stent 12/07, T1DM (insulin pump at home), ESRD on PD, HLD, GERD, hyperparathyroidism, DDD, OA, gout, BEN on CPAP who initially presented to [facility] for n/v and chest pain. Per Pt he had 3 days of generalized weakness, chills, ROONEY, n/v, chest pain relieved by sublingual ntg. His labs were notable for trop 1.0-->1.09-->0.729, BNP 06314. He had a CT CAP showing cholelithiasis and likely PNA. RUQ US showed distended gallbladder with gallstones and gallbladder wall thickening, recommended HIDA scan. He was treated with ctx/azithromycin. Pt was started on a heparin gtt. Cath on 06/03 showed previous PCI to proximal and distal right coronary patent, 99% ostial circumflex stenosis as well as 90% circumflex lesion after origin of largest OM branch, mild diffuse disease in LAD which does not appear to be flow limiting. Pt was recommended PCI of left circumflex as optimal treatment. Pt was transfered to [facility] on 06/05. Upon arrival EKG showed sinus bradycardia, 1st deg AV block. ACT was called for substernal chest pressure and hypoxemia, he was placed on BiPAP with improvement in oxygen saturation and transferred to the MICU, where he was placed on AVAPS. CXR showed significantly worsened pulmonary edema. Trop 4797 -> 4266 in the MICU, EKG was unchanged. Pt was startedon kaylah for cholecystitis. He was continued on heparin gtt, started on nitro gtt for BP control andO2 was weaned to nasal cannula. Pt underwent complex PCI 06/07, PCI revealed ostial circ lesion of 90%, large OM with 70% narrowing. Patient became hypotensive and hypoxemic requiring levo and epi gtt. The patient was intubated. The left dominant circumflex and OM were then stented. Impella was inserted. A swan liv catheter and L IJ trialysis were also placed. Impella was weaned slowly and removed 06/10. Pressors and vent settings were weaned slowly, and patient was ultimately extubated on 06/20. Passed MBS and was started on a PO DM diet. Pt is tolerating well. DVT ppx-heparin. Diet-diabetic/cardiac. Cannot be fully AC. Dopplers neg for DVTs. As patient was medically appropriate, he was tr ansferred to [facility] for comprehensive rehabilitation on 06/29/22. Functional Status: Prior level of function was independent with ADLs and transfers. Therapy-static stand is min assist, dynamic standing is min assist, grooming is mod assist, toileting is mod assist, supine to EOB is SBA, Sit to stand min assist, toileting is mod assist, bed to chair transfer is min assist and ambulating 15ft with min assist and WWR. Discharge is to home with spouse and 17yr old son. Allergies: Allopurinol, Chlorhexidine, Iodinated contrast media, and Ticagrelor Facility-Administered Medications as of 06/29/2022 Medication Dose Frequency Provider Last Rate Last Admin calcium acetate (CALPHRON) tablet 667 mg 667 mg TID BEFORE meals Avni Clifford PA 667 mg at 06/29/22 1654 peg [id number]-[id number] 1-0.2-0.2 % ophthalmic solution 1 Drop 1 Drop QID Avni Clifford PA [START ON 06/30/2022] calcitRIOL (ROCALTROL) capsule 0.25 mcg 0.25 mcg daily Avni Clifford PA heparin injection 5,000 Units 5,000 Units every 8 hours Avni Clifford PA 5,000 Units at 06/29/222116 [START ON 06/30/2022] aspirin (JOSEPH CHEWABLE) chewable tablet 81 mg 81 mg daily Avni Clifford PA [START ON 06/30/2022] atorvastatin (LIPITOR) tablet 80 mg 80 mg daily Avni Clifford PA [START ON 06/30/2022] clopidogreL (PLAVIX) tablet 75 mg 75 mg daily Avni Clifford PA nitroglycerin (NITROSTAT) tablet 0.4 mg 0.4 mg every 5 minutes PRN Avni Clifford PA [START ON 06/30/2022] isosorbide mononitrate (IMDUR) SR 24 hour tablet 30 mg 30 mg daily Avni Clifford PA [START ON 06/30/2022] losartan (COZAAR) tablet 12.5 mg 12.5 mg daily Avni Clifford PA [START ON 06/30/2022] pantoprazole (PROTONIX) tablet 40 mg 40 mg daily Avni Clifford PA metoprolol tartrate (LOPRESSOR) tablet 25 mg 25 mg BID Avni Clifford PA 25 mg at 06/29/222115 [START ON 06/30/2022] gentamicin (GARAMYCIN) 0.1 % topical ointment daily Avni Clifford PA naloxone (NARCAN) 0.4 mg/mL injection 0.1 mg 0.1 mg see admin instructions Avni Clifford PA ondansetron (ZOFRAN ODT) tablet 4 mg 4 mg every 6 hours PRN Avni Clifford PA prochlorperazine maleate (COMPAZINE) tablet 10 mg 10 mg every 6 hours PRN Avni Clifford PA albuterol (PROVENTIL,VENTOLIN) 2.5 mg /3 mL (0.083 %) inhalation solution 2.5 mg 2.5 mg resp, every6 hours PRN Avni Clifford PA bisacodyL (DULCOLAX) delayed release tablet 5 mg 5 mg daily PRN Avni Clifford PA bisacodyL (DULCOLAX) rectal suppository 10 mg 10 mg daily PRN Avni Clifford PA aluminum - magnesium - simethicone (MYLANTA) 200-200-20 mg/5 mL oral suspension 30 mL 30 mL every 4hours PRN Avni Clifford PA calcium as carbonate (TUMS) 500 mg (200 mg elemental) chewable tablet 200 mg 200 mg every 4 hours PRN Avni Clifford PA folic acid-Vit B6-Vit B12 (FOLTX) per tablet 1 Tablet 1 Tablet daily Avni Clifford PA 1 Tablet at 06/29/221653 dextrose 5% - sodium chloride 0.9% infusion see admin instructions Avni Clifford PA dextrose 50% (D50) syringe 12.5 Gram 12.5 Gram see admin instructions Avni Clifford PA dextrose 50% (D50) syringe 25 Gram 25 Gram see admin instructions Avni Clifford PA glucagon human recombinant (GLUCAGEN) 1 mg/mL injection 1 mg 1 mg see admin instructions Avni Clifford PA dextrose 50% (D50) syringe 12.5 Gram 12.5 Gram see admin instructions Avni Clifford PA dextrose 50% (D50) syringe 25 Gram 25 Gram see admin instructions Avni Clifford PA glucagon human recombinant (GLUCAGEN) 1 mg/mL injection 1 mg 1 mg see admin instructions Avni Clifford PA insulin aspart pump basal (NovoLOG) 100 unit/mL infusion TID Avni Clifford PA insulin lispro (HumaLOG) variable dose injection QID WITH meals and HS Avni Clifford PA [START ON 06/30/2022] colchicine (COLCRYS) tablet 0.6 mg 0.6 mg every 48 hours Avni Clifford PA doxycycline monohydrate (MONODOX) capsule 50 mg 50 mg every 12 hours (2 times daily) Avni Clifford PA 50 mg at 06/29/222115 furosemide (LASIX) tablet 80 mg 80 mg BID, 7 hours apart Avni Clifford PA 80 mg at 06/29/221653 [START ON 06/30/2022] ezetimibe (ZETIA) tablet 10 mg 10 mg daily Avni Clifford PA ranolazine ER (RANEXA) SR 12 hour tablet 500 mg 500 mg every 12 hours (2 times daily) Avni Clifford PA 500 mg at 06/29/222115 [Held by Provider] hydrALAZINE (APRESOLINE) tablet 100 mg 100 mg every 8 hours Avni Clifford PA cetirizine (ZyrTEC) tablet 5 mg 5 mg daily PRN Avni Clifford PA [START ON 06/30/2022] cloNIDine (VOBBRBPJ-XKA-9) 0.1 mg/24 hr transdermal patch 1 Patch 1 Patch every 7 days Avni Clifford PA [COMPLETED] New Admission Meds - retrieve upon admission every 4 hours Avni Clifford PA Given at 06/29/22 1600 melatonin tablet 6 mg 6 mg daily BEDTIME Avni Clifford PA 6 mg at 06/29/22 2117 acetaminophen (TYLENOL) tablet 650 mg 650 mg every 6 hours PRN Srinivas Jon MD HYDROcodone-acetaminophen (NORCO) 5-325 mg per tablet 1 Tablet 1 Tablet every 6 hours PRN Srinivas Jon MD 1 Tablet at 06/29/22 2210 Past Medical History: Diagnosis Date Amplified musculoskeletal pain Diabetes mellitus Heart attack 04/14/2017 HTN (hypertension) Hyperlipidemia Thromboembolism Past Surgical History: Procedure Laterality Date HX ANGIOPLASTY N/A 04/17/2017 Family History: reviewed, non-contributory Social History Socioeconomic History Marital status: Single Spouse name: Not on file Number of children: 3 Years of education: Not on file Highest education level: Not on file Occupational History Not on file Tobacco Use Smoking status: Never Smokeless tobacco: Never Substance and Sexual Activity Alcohol use: No Drug use: No Sexual activity: Not Currently Other Topics Concern Service No Blood Transfusions Yes Comment: 04/2017 Caffeine Concern No Occupational Exposure No Hobby Hazards No Sleep Concern No Stress Concern No Weight Concern No Special Diet Yes Comment: diabetic diet - heart healty Back Care No Exercise Yes Bike Helmet Yes Seat Belt Yes Self-Exams No Social History Narrative Not on file Social Determinants of Health Financial Resource Strain: Not on file Food Insecurity: Not on file Transportation Needs: Not on file Physical Activity: Not on file Stress: Not on file Social Connections: Not on file Intimate Partner Violence: Not on file Housing Stability: Not on file Current diet: renal/cardiac Review of Systems: The patient denies any headaches, lightheadedness or dizziness. No fever, chills or night sweats. No hemoptysis, hematemesis, hematuria or bright red blood per rectum. Denies any chest pain or chest tightness. No palpitations, paroxysmal nocturnal dyspnea or orthopnea. Denies shortness of breath and dyspnea on exertion. Denies cough. No history of pulmonary embolism or deep venous thrombosis. No heat or cold intolerance. Denies any history of thyroid disease. Reports a stable appetite. No significant weight gain or weight loss. Denies any urinary symptoms. Remainder of review of systems is asnoted in the history of present illness. Examination/Laboratory/Imaging Review BP 124/71 (BP Location: Right arm, Patient Position (BP): Supine) Pulse 71 Temp 98.6 ??F (37 ??C) (Oral) Resp 18 Ht 5' 10 (1.778 m) Wt 117.3 kg (258 lb 8 oz) SpO2 94% BMI 37.09 kg/m?? General appearance: alert, in no distress Skin/sores/incisions: No rashes or lesions; HEENT: Atraumatic, Normocephalic. PERRL, EOM's intact; Neck: supple, symmetrical, trachea midline, no adenopathy. Lungs/Chest wall: clear to auscultation bilaterally, normal respiratory effort, no tenderness. CardioVasc: normal rate and regular rhythm, no edema, intact distal pulses Abdomen: Soft, non-tender. Bowel sounds normal. No masses, no organomegaly. Musculoskeletal: LE edema Neurologic: Mental status: Alert, awake, responsive, oriented to time and place and person, attentive. Language: Fluent, good naming and good repetition. Cranial nerves: Pupils are normal reactive to light EOM: full, normal visual charles No ptosis Normal facial sensation and no facial weakness Normal hearing Muscle strength: 5/5 in UE/LExts proximally and distally bilaterally. Muscle Stretch Reflexes: brisk and symmetric. Sensory exam: normal touch bilaterally. Cerebellar exam: no tremors. Gait: not tested. Psych: affect is euthymic. Labs reviewed. No results found for: WBC, MANUALWBC, HGB, HGBPOC, HCT, HCTPOC, PLT, MCV No results found for: IRON, TIBC, FERRITIN No results found for: NA, K, CL, CO2, CA, BUN, CREAT, GLUCOSE, TOTALPROTEIN, ALBUMIN, BILITOTAL, ALKPHOS, AST, ALT, ANIONGAP, BCRATIO No results found for: TSH, TSHULTRA, THYROIDSTIM, T3, T3FREE, A9ACCPUB, T4, T4FREE, FT4E, TPO, THROIDAB, THYROIDMI No results found for: [id number] No results found for: NQAK196, VITD25, URUS14DPO3, DGHS68WKN8, SRLG90VKLL, 25OHVITD No results found for: HGBA1C, [id number] No results found for: PHUA, SGUR, URINELEUKOC, NITRITEUA, KETONEURINE, PROTEINUA, GLUUA, BLOODUA, WBCU, WBCURINE, RBCUA, BACTERIAUA, UREPITHELIAL Radiology reports reviewed per medical records. Assessment/Plan/Interventions: Debility: The patient will be admitted for inpatient comprehensive interdisciplinary rehabilitationto address the impairments and medical conditions as listed above. Physical Therapy will work on lower body strengthening, transfer and mobility skills. Occupational Therapy will evaluate and treat upper body weakness and work on independent self care and need for any adaptive equipment. Rehab nurse will monitor bowel/bladder function, skin integrity, and provide education as needed. This interdisciplinary program will be performed under the direction of a commercial solar sales consultant. CAD, s/p NSTEMI, s/p PCI. Cont asa, metoprolol, statin. Cardiogenic shock Afib: metoprolol, DAPT Acute on chronic systolic CHF: EF 65%: cont lasix, metoprolol, losartan, imdur ESRD, on PD: renal consulted DM: insulin pump at home, resumed per home settings HTN: metoprolol, lasix, clonidine, hydralazine AHRF: pulm toilet, BD prn Dysphagia: resolved, passed MBS 06/21 Severe obsity, BMI 37: encourage weight cessation. DVT Prevention: heparin Pain Management: apap, norco prn Stress ulcer prophylaxis: PPI Bladder management: monitor voiding pattern, monitor bladder scans/PVRs, straight cath per parameters. Bowel management: monitor stooling pattern, continue bowel program adjust laxatives as needed. Code: full F/u: PCP, Aditya Lara MD [phone] Cardiology Endocrinology Barriers to immediate discharge to prior living situation include: above noted new/worsened impairments and their resultant reduction in function from premorbid (as noted above) patient/caregiver lack of knowledge in managing new impairments/medical diagnoses need for new/ongoing medical interventions inaccessible home environment need for caregiver training need to function at a higher level than current due to no or limited caregiver assistance available lack of access to care in another setting training required with durable medical equipment Risks for medical and/or functional complications to patient if NOT admitted to Inpatient Rehabilitation Facility with daily physician management including physical medicine and rehabilitation physician, rehabilitation specialty nursing, multidisciplinary therapy program with access to rehabilitation psychology, orthotics/prosthetics include: Inadequate management of blood sugar Inadequate management of hypertension Aspiration pneumonia Malnutrition and/or dehydration due to insufficient intake of food/fluids orally Pressure sore development or worsening Wound non/impaired healing Urinary tract infection due to incomplete bladder emptying or prolonged catheterization Constipation Hypoxemia Muscle/joint/soft tissue contractures Insufficiently managed musculoskeletal or neuropathic pain Worsened neurologic status due to medications/metabolic reasons/worsened medical disease Uncontrolled seizures Not reaching full potential for functional recovery of transfers, ambulation, mobility, self care, communication, cognition due to inadequate or incorrect specialized therapy services THEREFORE: Admit to comprehensive inpatient rehabilitation program including: physical therapy 5 days per week 90 minutes each day occupational therapy 5 days per week 90 minutes each day rehabilitation nursing twenty four hours/day Estimated Length of Stay: 2 weeks Overall Goals for Inpatient Rehabilitation Facility admission: Achieve/Maintain Medical Stability Achieve safe and adequate nutrition and hydration Achieve Adequate management of pain Determine need for and assist in obtaining needed Durable Medical Equipment Patient and family education/training Maximize mobility to: Stand by Assist Maximize self care/ADLs to: Stand by Assist Prognosis to meet stated goals: good Anticipated discharge destination: Home with spouse Anticipated continued treatments after Inpatient Rehabilitation Facility discharge: OP therapy program. I reviewed this plan with patient and they are in agreement to proceed. The patient was evaluated within 24 hours of admission. This post admission physician assessment is in agreement with the preadmission assessment performed. Statement of Medical Necessity: The patient is sufficiently stable to participate in the rehabilitation program. In my professional judgment and rehabilitation experience, the patient meets medical necessity criteria, requires an inpatient stay to manage his/her needs for nursing and medical management ( the nursing needs require rehabilitation nursing, the medical needs require supervision by a rehabilitation physician at least three times per week), and requires the interdisciplinary team approach of an intensive inpatient rehabilitation program. The patient can reasonably be expected to par ticipate in, and benefit from, the intensive rehabilitation program. Total time spent on this evaluation, examination, personal counselor with patient and/or family/caregivers, determination documentation and initiation of plan of care was more than 70 minutes. Srinivas Jon MD T CYTOLOGIST * Jasmin Bradley MD - 06/29/2022 5:00 PM CST Renal Consult Note Patient Name: Juvenal Daigle CC PCP: Aditya Castro MD Reason for Consultation: ESRD on [facility] Date of Admission: 06/29/2022 Date of Service: 06/29/2022 CC: Debility/Cardiogenic shock/HTN HPI: Juvenal Daigle is a 51 y.o. male with h/p ESRD from DM, on [facility] for about 1 year. He has HTN, DM-1, on insulin pump, HLD, CAD, s/p recent AMI, stenting, CHF- EF 50%, A Fib, GERD, hyperparathyroidism, DDD, OA, gout, BEN on CPAP, who initially presented to [facility] for nausea and vomiting for three days, associated chest pain, generalized weakness, chills, ROONEY. Symptoms were relieved with sublingual NTG. His labs were notable for elevated troponin 1.0-->1.09-->0.729, BNP 98518. He had a CT C/A/P showing cholelithiasis and likely pneumonia. RUQ US showed distended gallbladderwith gallstones and gallbladder wall thickening, recommended HIDA scan. He was treated with ceftriax one/azithromycin. He was started on Heparin gtt. Cath on 06/03/22 showed previous PCI to proximal and distal right coronary patent, 99% ostial circumflex stenosis as well as 90% circumflex lesion after origin of largest OM branch, mild diffuse disease in LAD which does not appear to be flow limiting. Patient was recommended PCI of left circumflex as optimal treatment. He was transfered to [facility] on 06/05/22. Upon arrival EKG showed sinus bradycardia, 1st deg AV block. ACT was called for substernal chest pressure and hypoxemia, he was placed on BiPAP with improvement in oxygen Sat% and transferred to MICU, where he was placed on AVAPS. CXR showed significantly worsened pulmonary edema. Trop 4797 -> 4266 in the MICU, EKG was unchanged. Patient was started on Meropenem for cholecystitis. He was continued on Heparin gtt, started on Nitro gtt for BP control and O2 was weaned to nasal cannula. Patient underwent complex PCI 06/07/22, PCI revealed ostial circ lesion of 90%, large OM with 70% narrowing. Patient became hypotensive and hypoxemic requiring Levo and Epi gtt. The patient was intubated. The left dominant circumflex and OM were then stented. Impella was inserted. A swan liv catheter and L IJ trialysis were also placed. Impella was weaned slowly and removed 06/10/22. Pressors and vent settings were weaned slowly, and patient was ultimately extubated on 06/20/22. Passed MBSand was started on a PO DM diet. Patient is tolerating well. He is participating in therapy and is able to tolerate 3hrs of therapy a day. He has been deemed medically stable and transferred to [facility] for comprehensive inpatient rehab. I am asked to see patient for assisting management of her ESRD on CCPD. His PD cath looks dry without tender or drainage. He said his CCPD regimen in home is All 2.5% Dianeal 2.5 L dwelling volume, 4 exchange for total 9 hrs, then last refill with 1L of purple bag until initial drain of next CCPD. Will give gentamicin cream and dressing change daily to PD catheter exitsite. PMHx: Past Medical History: Diagnosis Date Amplified musculoskeletal pain Diabetes mellitus Heart attack 04/14/2017 HTN (hypertension) Hyperlipidemia Thromboembolism PSurgHx: Past Surgical History: Procedure Laterality Date HX ANGIOPLASTY N/A 04/17/2017 Outpt Meds: Prior to Admission Medications Prescriptions Last Dose Informant Patient Reported? Taking? BD ULTRA-FINE SHORT PEN NEEDLE 31 gauge x 5/16 Needle Yes No Sig: U ONE PEN NEEDLE TO INJ INSULIN SC QID FERROUS SULFATE ORAL Yes No Sig: Take by mouth. HUMALOG KWIKPEN INSULIN 100 unit/mL pen syringe Yes No Sig: INJECT 12 TO 18 UNITS SUBCUTANEOUSLY TID W MEALS Insulin [place], Disposable, (TRUEPLUS PEN NEEDLE) 31 gauge x 5/16 Needle Yes No Sig: TRUEplus Pen Needle 31 gauge x 5/16 Phentermine 15 mg Capsule Yes No Sig: Take by mouth. RANEXA 500 mg Extended Release 12 hour tablet Yes No TRUE METRIX GLUCOSE METER Yes No TRUE METRIX GLUCOSE TEST STRIP Strip Yes No albuterol (PROVENTIL,VENTOLIN) 2.5 mg /3 mL (0.083 %) Solution for Nebulization Yes No Sig: albuterol sulfate 2.5 mg/3 mL (0.083 %) solution for nebulization amLODIPine (NORVASC) 5 mg tablet Yes No Sig: amlodipine 5 mg tablet aspirin (JOSEPH CHEWABLE) 81 mg Tablet, Chewable Yes No Sig: Take 81 mg by mouth daily. atorvastatin (LIPITOR) 20 mg tablet Yes No Sig: Take 20 mg by mouth daily. atorvastatin (LIPITOR) 40 mg tablet Yes No Sig: Take 40 mg by mouth late in the day. benzonatate (TESSALON) 200 mg capsule Yes No Sig: benzonatate 200 mg capsule blood sugar diagnostic (TRUE METRIX GLUCOSE TEST STRIP) Strip Yes No Sig: True Metrix Glucose Test Strip calcitRIOL (ROCALTROL) 0.25 mcg capsule Yes No Sig: Take 0.25 mcg by mouth daily. carvedilol (COREG) 25 mg tablet Yes No Sig: Take 25 mg by mouth 2 times daily with meals. cetirizine (ZyrTEC) 10 mg tablet Yes No Sig: Take 10 mg by mouth daily. cholecalciferol 50,000 unit Capsule Yes No Sig: Take by mouth. cloNIDine HCl (CATAPRES) 0.1 mg tablet Yes No Sig: TK 1 T PO BID clopidogrel (PLAVIX) 75 mg Tablet Yes No Sig: Take 75 mg by mouth daily . colchicine (COLCRYS) 0.6 mg tablet Yes No Sig: Take 0.6 mg by mouth daily. cyclobenzaprine (FLEXERIL) 10 mg tablet Yes No Sig: cyclobenzaprine 10 mg tablet TAKE 1 TABLET BY MOUTH EVERY 12 HOURS FOR 30 DAYS NEEDED doxycycline monohydrate (MONODOX) 50 mg Capsule Yes No epoetin genia (PROCRIT) 20,000 unit/mL Solution Yes No Sig: Procrit 20,000 unit/mL injection solution ergocalciferol (VITAMIN D2) 50,000 unit capsule Yes No Sig: Take 50,000 Units by mouth. ezetimibe (ZETIA) 10 mg tablet Yes No Sig: Take 10 mg by mouth daily. febuxostat (ULORIC) 40 mg Tablet Yes No Sig: Take 40 mg by mouth daily. furosemide (LASIX) 40 mg tablet Yes No Sig: Take 40 mg by mouth 2 times daily . gemfibrozil (LOPID) 600 mg tablet Yes No Sig: Take 600 mg by mouth 2 times daily. glucagon human recombinant (glucagon emergency) 1 mg Recon Soln Yes No Sig: Glucagon Emergency Kit (human-recomb) 1 mg solution for injection hydrALAZINE (APRESOLINE) 10 mg tablet Yes No Sig: Take 10 mg by mouth every 8 hours . insulin glargine (LANTUS) 100 unit/mL pen syringe Yes No Sig: Inject 45 Units by subcutaneous injection daily at bedtime . 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 ketoconazole (NIZORAL) 2 % Shampoo Yes No lancets (ONETOUCH DELICA LANCETS) 30 gauge Yes No Sig: OneTouch Delica Lancets 30 gauge nitroglycerin (NITROSTAT) 0.4 mg Tablet, Sublingual Yes No Sig: Place 0.4 mg under tongue every 5 minutes as needed for Chest Pain. predniSONE (DELTASONE) 10 mg tablet Yes No Sig: prednisone 10 mg tablet prednisoLONE acetate (PRED FORTE) 1 % suspension Yes No Sig: prednisolone acetate 1 % eye drops,suspension raNITIdine (ZANTAC) 300 mg tablet Yes No Sig: Take 300 mg by mouth daily at bedtime. selenium sulfide (SELSUN) 2.5 % Lotion Yes No Sig: Apply to affected area daily. sildenafil (VIAGRA) 50 mg tablet Yes No Sig: Viagra 50 mg tablet terazosin (HYTRIN) 2 mg capsule Yes No Sig: Take 2 mg by mouth daily at bedtime. Facility-Administered Medications: None All: Allergies Allergen Reactions Allopurinol Shortness of Breath/Wheezing and Other (See Comments) Shuts my kidneys down per patient. Chlorhexidine Other (See Comments) Skin peels all over and becomes tender Iodinated Contrast Media Rash Ticagrelor Rash FamHx: No family history on file. SocHx: Social History Tobacco Use Smoking status: Never Smokeless tobacco: Never Substance Use Topics Alcohol use: No Review of Systems History from chart review and the patient General negative for weight changes, fever or chill, + weakness ENT negative for nasal congestion, drainage or bleeding, sore throat, dysphagia or ear pain Heme/Lymph negative for swollen glands or abnormal bleeding Endocrine negative for cold or hot intolerance, polyuria/polydipsia or new changes in weight CV negative for chest pain or dyspnea on exertion Respiratory negative for cough, shortness of breath, or wheezing GI negative for reflux, abdominal pain, nausea, vomiting, change in bowel habits, or black or bloody stools negative for dysuria, trouble voiding, or hematuria MS negative for back pain, neck pain or joint pain or swelling Neuro negative for focal weakness, dizziness, tingling or numbness, or other TIA or stroke symptoms, Derm negative for skin rashes or unusual skin lesions All Other ROS Negative Physical Exam: BP 124/71 (BP Location: Right arm, Patient Position (BP): Supine) Pulse 71 Temp 98.6 ??F (37 ??C) (Oral) Resp 18 Ht 5' 10 (1.778 m) Wt 117.3 kg (258 lb 8 oz) SpO2 94% BMI 37.09 kg/m?? General alert, cooperative, no distress Head Normocephalic, symmetric, atraumatic Eyes conjunctivae/corneas clear. PERRL, EOM's intact. Ears Normal external exam AU Nose Nares normal. Mucosa normal. No drainage or sinus tenderness. Throat Lips, mucosa, and tongue normal. Teeth and gums normal Neck supple, symmetrical, trachea midline, no adenopathy, thyroid: not enlarged, symmetric, no tenderness/mass/nodules, no carotid bruit and no JVD Back symmetric, no curvature. ROM normal. No CVA tenderness Lungs clear to auscultation bilaterally, no dullness to percussion, no wheezes or rales Chest wall no tenderness Heart regular rate and rhythm, S1, S2 normal, no murmur, click, rub or gallop Abdomen soft, PD cath exit site dry and clean. non-tender. Bowel sounds normal. No masses palpable.No organomegaly Extremities Extremities no cyanosis, clubbing or edema. Pulses 2+ and symmetric Skin Skin color, texture, turgor normal. No rashes or lesions Lymph nodes Cervical, supraclavicular, and axillary nodes normal. Neurologic Cranial nerves 2 thru 12 grossly normal, moves all extremities well Data Base: Results for orders placed or performed during the hospital encounter of 06/29/22 (from the past 24 hour(s)) POC GLUCOSE Result Value Ref Range GLUCOSE POC 265 (H) 74 - 99 mg/dL SPECIMEN SOURCE, GLUCOSE POC Whole Blood POC GLUCOSE Result Value Ref Range GLUCOSE POC 271 (H) 74 - 99 mg/dL SPECIMEN SOURCE, GLUCOSE POC Whole Blood EKG: Imaging: No results found for this or any previous visit. Assessment/Plan: Patient Active Hospital Problem List: ESRD on CCPD daily --25% Dianeal with 2.5L dwelling volume. 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 --DVT prophylaxis --Off full AC Hyperlipidemia -- Lipitor HTN (hypertension) --Clonidine patch --Hydralazine 100 mg every 8 hours due to softer blood pressure --Losartan 12.5 mg daily -- 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 Current Code Status -Full Code Thank you for inviting me to participate the care of this patient, will follow up closely with you. JASMIN BRADLEY MD [facility] Office [phone] T CYTOLOGIST documented in this encounter Miscellaneous Notes * Care Plan - Leonela Lantigua RN - 07/08/2022 3:00 PM CST Patient Education on Medications Education provided This education was provided to the pt Name of medication: all meds given this shift The education included the following: med indications Patient has had no falls at this time and is fall risk level/color green Interventions in Place: [] Bed Alarm [] Clip Chair Alarm [] Self-Releasing Belt (a one time order is required) [x] Call Light within reach, return demo by patient completed [] Handoff patient when returning him/her to room [] Wheelchair/Walker out of reach [x] Low Bed [] Mats in Place [] Observation Room [x] Fall Risk Magnet on Door [x] Fall Risk Magnet on Schedule Board [x] Fall Risk Armband on Patient [] Sitter [] Other If patient is a red fall risk, do not leave alone in the bathroom. T CYTOLOGIST * Care Plan - Leonela Lantigua RN - 07/06/2022 1:51 PM CST Patient Education on Medications Education provided This education was provided to the pt Name of medication: all meds given this shift The education included the following: med indications Patient has had no falls at this time and is fall risk level/color yellow Interventions in Place: [x] Bed Alarm [] Clip Chair Alarm [] Self-Releasing Belt (a one time order is required) [x] Call Light within reach, return demo by patient completed [] Handoff patient when returning him/her to room [x] Wheelchair/Walker out of reach [x] Low Bed [] Mats in Place [] Observation Room [x] Fall Risk Magnet on Door [x] Fall Risk Magnet on Schedule Board [x] Fall Risk Armband on Patient [] Sitter [] Other If patient is a red fall risk, do not leave alone in the bathroom. T CYTOLOGIST * Care Plan - Katerina Griffith RN - 07/05/2022 7:53 AM CST Problem: Cognitive/Perceptual/Neuro Goal: Achieve optimal cognitive/perceptual/neurological function by discharge or maintain baseline function Outcome: Progressing Problem: Cardiovascular Goal: Achieve optimal cardiovascular function by discharge or maintain baseline function Outcome: Progressing Problem: Respiratory Goal: Achieve optimal respiratory function by discharge and/or maintain baseline function Outcome: Progressing Problem: Nutrition/Endocrine Goal: Achieve optimal nutrition and fluid status to meet metabolic needs throughout hospitalization Outcome: Progressing Problem: Gastrointestinal Goal: Achieve optimal gastrointestinal function by discharge or maintain baseline function Outcome: Progressing Problem: Genitourinary/Renal Goal: Achieve optimal genitourinary and renal function by discharge or maintain baseline function Outcome: Progressing Problem: Musculoskeletal Goal: Achieve optimal musculoskeletal function by discharge or maintain baseline function Outcome: Progressing Problem: Skin Goal: Maintain skin integrity and/or promote wound healing by discharge Outcome: Progressing Problem: Coping (Adult) Goal: Demonstrates effective coping mechanisms and psychosocial functioning throughout hospitalization Outcome: Progressing Problem: Mobility Goal: Absence of/Reduce Fall Risk r/t Mobility Deficits Description: Patient is a fall risk because of mobility deficits. A patient with mobility deficits is automatically at high risk for falls. Potential Interventions: 1. Schedule patient toileting to avoid emergency trips to the bathroom 2. If available, use floor mats next to bed or in front of chair when up 3. If applicable, remove floor mats when getting patient up and replace when leaving patient 4. Assistive devices as required, educate patient on correct use of device (walkers, shower chairs,lift equipment, etc.) 5. Exit bed on patient's strongest side 6. Gait belt easily accessible 7. Activate bed or chair alarm while in bed or up in chair 8. Get order for PT consult if appropriate 9. Patient requires 2 assist - bedpan and bed bath if 2 staff not available, bedside commode if 2 staff are available entire time 10. Slow progressive position changes if patient experiencing dizziness Outcome: Progressing Problem: Medications Goal: Absence of/Reduce Fall Risk r/t Medications Description: Patient is a fall risk because of medications (i.e. - BP meds, CV/GAME DESIGNER meds, seizure meds, diuretics, pain meds, psych meds, current chemotherapy). Potential Interventions: 1. Orthostatic VS q day; educate to dangle before rising 2. Educate patient and family on how medications increase patient's fall risk (may make dizzy, lower BP, etc) 3. Do first dose education with all med/dosage changes. Document education 4.Reassess fall risk whenever a medication is changed/added (sleeping pill, pain med, BP med dose adjustment, etc) 5. Activate bed or chair alarm while in bed or up in chair 6. Limit combination of PRN meds whenever possible (i.e. - space out narcs and benzos) 7. Schedule frequent toileting for patients on diuretic to help prevent emergencies 8. Consult pharmacy to review meds and make recommendations (determine best timing, possible dosingadjustments, or identify other education that might be appropriate for patient) 9. Use floor mats next to bed and in front of chair when patient left unattended 10.Do not leave patient unattended while toileting or showering 11.Use appropriate assistive equipment (walker, shower chair, etc) 12. Include information on high risk medications, last doses, and patient tolerance in hand-off communication Outcome: Progressing Problem: Pain, Potential/Actual Goal: Verbalizes/displays acceptable comfort level or baseline comfort level Description: Outcome: Progressing Problem: Infection Risk/Actual Goal: Infection Risk/Actual: Infection prevention, control, or resolution by discharge Description: Outcome: Progressing Problem: Safety/Fall Goal: Safety/Fall: Absence of fall, injury, harm during hospitalization Description: Outcome: Progressing Problem: Discharge Planning Goal: Identify discharge needs upon admission and through discharge Description: Outcome: Progressing Problem: Volume/Electrolyte Status Goal: Absence of/Reduce Fall Risk r/t Volume/Electrolyte Status Description: Patient is a fall risk due to volume/electrolyte status (i.e. - electrolyte imbalances, nausea/vomiting, NPO, IV fluids). Potential Interventions: 1. Ensure blood sugar is checked at appropriate intervals and insulin dosing is given as ordered 2. Provide patient with an emesis basin or vomit bag (may need more than one at bedside) 3. Assess length of IV and/or O2 tubing if applicable 4. Ensure IV fluids are given as ordered for NPO patients to maintain hydration 5. Administer medications for nausea and vomiting as needed Outcome: Progressing Problem: Peripheral Neurovascular Goal: Achieve optimal peripheral neurovascular function by discharge or maintain baseline function Outcome: Progressing T CYTOLOGIST * Care Plan - Leonela Lantigua RN - 07/03/2022 2:44 PM CST Patient Education on Medications Education provided This education was provided to the pt Name of medication: all meds given this shift The education included the following: med indications Patient has had no falls at this time and is fall risk level/color yellow Interventions in Place: [x] Bed Alarm [] Clip Chair Alarm [] Self-Releasing Belt (a one time order is required) [x] Call Light within reach, return demo by patient completed [] Handoff patient when returning him/her to room [x] Wheelchair/Walker out of reach [x] Low Bed [] Mats in Place [] Observation Room [x] Fall Risk Magnet on Door [x] Fall Risk Magnet on Schedule Board [x] Fall Risk Armband on Patient [] Sitter [] Other If patient is a red fall risk, do not leave alone in the bathroom. T CYTOLOGIST * Care Plan - Rosa Raya LPN - 07/02/2022 9:36 PM CST Day 1 - Current ([facility]) Patient, family, or healthcare designee is participating in individual care plan process Outcome: Met Patient, family, or healthcare designee understands side effects of medications Outcome: Met Problem: Cognitive/Perceptual/Neuro Goal: Achieve optimal cognitive/perceptual/neurological function by discharge or maintain baseline function Outcome: Progressing Problem: Cardiovascular Goal: Achieve optimal cardiovascular function by discharge or maintain baseline function Outcome: Progressing Problem: Respiratory Goal: Achieve optimal respiratory function by discharge and/or maintain baseline function Outcome: Progressing Problem: Nutrition/Endocrine Goal: Achieve optimal nutrition and fluid status to meet metabolic needs throughout hospitalization Outcome: Progressing Problem: Gastrointestinal Goal: Achieve optimal gastrointestinal function by discharge or maintain baseline function Outcome: Progressing Problem: Genitourinary/Renal Goal: Achieve optimal genitourinary and renal function by discharge or maintain baseline function Outcome: Progressing Problem: Musculoskeletal Goal: Achieve optimal musculoskeletal function by discharge or maintain baseline function Outcome: Progressing Problem: Skin Goal: Maintain skin integrity and/or promote wound healing by discharge Outcome: Progressing Problem: Coping (Adult) Goal: Demonstrates effective coping mechanisms and psychosocial functioning throughout hospitalization Outcome: Progressing Problem: Mobility Goal: Absence of/Reduce Fall Risk r/t Mobility Deficits Description: Patient is a fall risk because of mobility deficits. A patient with mobility deficits is automatically at high risk for falls. Potential Interventions: 1. Schedule patient toileting to avoid emergency trips to the bathroom 2. If available, use floor mats next to bed or in front of chair when up 3. If applicable, remove floor mats when getting patient up and replace when leaving patient 4. Assistive devices as required, educate patient on correct use of device (walkers, shower chairs,lift equipment, etc.) 5. Exit bed on patient's strongest side 6. Gait belt easily accessible 7. Activate bed or chair alarm while in bed or up in chair 8. Get order for PT consult if appropriate 9. Patient requires 2 assist - bedpan and bed bath if 2 staff not available, bedside commode if 2 staff are available entire time 10. Slow progressive position changes if patient experiencing dizziness Outcome: Progressing Problem: Medications Goal: Absence of/Reduce Fall Risk r/t Medications Description: Patient is a fall risk because of medications (i.e. - BP meds, CV/GAME DESIGNER meds, seizure meds, diuretics, pain meds, psych meds, current chemotherapy). Potential Interventions: 1. Orthostatic VS q day; educate to dangle before rising 2. Educate patient and family on how medications increase patient's fall risk (may make dizzy, lower BP, etc) 3. Do first dose education with all med/dosage changes. Document education 4.Reassess fall risk whenever a medication is changed/added (sleeping pill, pain med, BP med dose adjustment, etc) 5. Activate bed or chair alarm while in bed or up in chair 6. Limit combination of PRN meds whenever possible (i.e. - space out narcs and benzos) 7. Schedule frequent toileting for patients on diuretic to help prevent emergencies 8. Consult pharmacy to review meds and make recommendations (determine best timing, possible dosingadjustments, or identify other education that might be appropriate for patient) 9. Use floor mats next to bed and in front of chair when patient left unattended 10.Do not leave patient unattended while toileting or showering 11.Use appropriate assistive equipment (walker, shower chair, etc) 12. Include information on high risk medications, last doses, and patient tolerance in hand-off communication Outcome: Progressing Problem: Pain, Potential/Actual Goal: Verbalizes/displays acceptable comfort level or baseline comfort level Description: Outcome: Progressing Problem: Infection Risk/Actual Goal: Infection Risk/Actual: Infection prevention, control, or resolution by discharge Description: Outcome: Progressing Problem: Safety/Fall Goal: Safety/Fall: Absence of fall, injury, harm during hospitalization Description: Outcome: Progressing Problem: Discharge Planning Goal: Identify discharge needs upon admission and through discharge Description: Outcome: Progressing Problem: Volume/Electrolyte Status Goal: Absence of/Reduce Fall Risk r/t Volume/Electrolyte Status Description: Patient is a fall risk due to volume/electrolyte status (i.e. - electrolyte imbalances, nausea/vomiting, NPO, IV fluids). Potential Interventions: 1. Ensure blood sugar is checked at appropriate intervals and insulin dosing is given as ordered 2. Provide patient with an emesis basin or vomit bag (may need more than one at bedside) 3. Assess length of IV and/or O2 tubing if applicable 4. Ensure IV fluids are given as ordered for NPO patients to maintain hydration 5. Administer medications for nausea and vomiting as needed Outcome: Progressing Problem: Peripheral Neurovascular Goal: Achieve optimal peripheral neurovascular function by discharge or maintain baseline function Outcome: Progressing T CYTOLOGIST * Care Plan - Leonela Lantigua RN - 07/02/2022 2:21 PM CST Patient Education on Medications Education provided This education was provided to the pt Name of medication: all meds given this shift The education included the following: med indications Patient has had no falls at this time and is fall risk level/color yellow Interventions in Place: [x] Bed Alarm [] Clip Chair Alarm [] Self-Releasing Belt (a one time order is required) [x] Call Light within reach, return demo by patient completed [] Handoff patient when returning him/her to room [x] Wheelchair/Walker out of reach [x] Low Bed [] Mats in Place [] Observation Room [x] Fall Risk Magnet on Door [x] Fall Risk Magnet on Schedule Board [x] Fall Risk Armband on Patient [] Sitter [] Other If patient is a red fall risk, do not leave alone in the bathroom. T CYTOLOGIST * Care Plan - Deep Denson RN - 07/02/2022 7:50 AM CST Patient Education on Medications Education provided Re: Juvenal Daigle This education was provided to the patient Name of medication: all meds that were given The education included the following: How to identify their medication, Administering their medication Deep Denson RN Patient has had no falls at this time and is fall risk level/color yellow Interventions in Place: [x] Bed Alarm [] Clip Chair Alarm [] Self-Releasing Belt (a one time order is required) [x] Call Light within reach, return demo by patient completed [x] Handoff patient when returning him/her to room [x] Wheelchair/Walker out of reach [] Low Bed [] Mats in Place [] Observation Room [x] Fall Risk Magnet on Door [x] Fall Risk Magnet on Schedule Board [x] Fall Risk Armband on Patient [] Sitter [] Other If patient is a red fall risk, do not leave alone in the bathroom. This pt is alert and oriented. Pleasant upon awakening from early bedtime, but somewhat confused initially as to time and place. Pt was reoriented and asked if he have himself a bolus of insulin withthis insulin pump according to his 9pm blood sugar. He stated that he had. Pt was started on peritoneal dialysis by the [facility] dialysis nurse during the evening. Pt appears to be tolerating well at this time. No acute distress evident. Medicated for pain as needed this shift. T CYTOLOGIST * Care Plan - Rosa Raya LPN - 06/30/2022 8:05 PM CST Day 1 - Current ([facility] [facility]: Adult and Obstetrics) Patient, family, or healthcare designee is participating in individual care plan process Outcome: Met Patient, family, or healthcare designee understands side effects of medications Outcome: Met Problem: Cognitive/Perceptual/Neuro Goal: Achieve optimal cognitive/perceptual/neurological function by discharge or maintain baseline function Outcome: Progressing Problem: Cardiovascular Goal: Achieve optimal cardiovascular function by discharge or maintain baseline function Outcome: Progressing Problem: Respiratory Goal: Achieve optimal respiratory function by discharge and/or maintain baseline function Outcome: Progressing Problem: Nutrition/Endocrine Goal: Achieve optimal nutrition and fluid status to meet metabolic needs throughout hospitalization Outcome: Progressing Problem: Nutrition/Endocrine Goal: Achieve optimal nutrition and fluid status to meet metabolic needs throughout hospitalization Outcome: Progressing Problem: Gastrointestinal Goal: Achieve optimal gastrointestinal function by discharge or maintain baseline function Outcome: Progressing Problem: Genitourinary/Renal Goal: Achieve optimal genitourinary and renal function by discharge or maintain baseline function Outcome: Progressing Problem: Musculoskeletal Goal: Achieve optimal musculoskeletal function by discharge or maintain baseline function Outcome: Progressing Problem: Skin Goal: Maintain skin integrity and/or promote wound healing by discharge Outcome: Progressing Problem: Coping (Adult) Goal: Demonstrates effective coping mechanisms and psychosocial functioning throughout hospitalization Outcome: Progressing Problem: Mobility Goal: Absence of/Reduce Fall Risk r/t Mobility Deficits Description: Patient is a fall risk because of mobility deficits. A patient with mobility deficits is automatically at high risk for falls. Potential Interventions: 1. Schedule patient toileting to avoid emergency trips to the bathroom 2. If available, use floor mats next to bed or in front of chair when up 3. If applicable, remove floor mats when getting patient up and replace when leaving patient 4. Assistive devices as required, educate patient on correct use of device (walkers, shower chairs,lift equipment, etc.) 5. Exit bed on patient's strongest side 6. Gait belt easily accessible 7. Activate bed or chair alarm while in bed or up in chair 8. Get order for PT consult if appropriate 9. Patient requires 2 assist - bedpan and bed bath if 2 staff not available, bedside commode if 2 staff are available entire time 10. Slow progressive position changes if patient experiencing dizziness Outcome: Progressing Problem: Medications Goal: Absence of/Reduce Fall Risk r/t Medications Description: Patient is a fall risk because of medications (i.e. - BP meds, CV/GAME DESIGNER meds, seizure meds, diuretics, pain meds, psych meds, current chemotherapy). Potential Interventions: 1. Orthostatic VS q day; educate to dangle before rising 2. Educate patient and family on how medications increase patient's fall risk (may make dizzy, lower BP, etc) 3. Do first dose education with all med/dosage changes. Document education 4.Reassess fall risk whenever a medication is changed/added (sleeping pill, pain med, BP med dose adjustment, etc) 5. Activate bed or chair alarm while in bed or up in chair 6. Limit combination of PRN meds whenever possible (i.e. - space out narcs and benzos) 7. Schedule frequent toileting for patients on diuretic to help prevent emergencies 8. Consult pharmacy to review meds and make recommendations (determine best timing, possible dosingadjustments, or identify other education that might be appropriate for patient) 9. Use floor mats next to bed and in front of chair when patient left unattended 10.Do not leave patient unattended while toileting or showering 11.Use appropriate assistive equipment (walker, shower chair, etc) 12. Include information on high risk medications, last doses, and patient tolerance in hand-off communication Outcome: Progressing Problem: Pain, Potential/Actual Goal: Verbalizes/displays acceptable comfort level or baseline comfort level Description: Outcome: Progressing Problem: Infection Risk/Actual Goal: Infection Risk/Actual: Infection prevention, control, or resolution by discharge Description: Outcome: Progressing Problem: Safety/Fall Goal: Safety/Fall: Absence of fall, injury, harm during hospitalization Description: Outcome: Progressing Problem: Discharge Planning Goal: Identify discharge needs upon admission and through discharge Description: Outcome: Progressing Problem: Volume/Electrolyte Status Goal: Absence of/Reduce Fall Risk r/t Volume/Electrolyte Status Description: Patient is a fall risk due to volume/electrolyte status (i.e. - electrolyte imbalances, nausea/vomiting, NPO, IV fluids). Potential Interventions: 1. Ensure blood sugar is checked at appropriate intervals and insulin dosing is given as ordered 2. Provide patient with an emesis basin or vomit bag (may need more than one at bedside) 3. Assess length of IV and/or O2 tubing if applicable 4. Ensure IV fluids are given as ordered for NPO patients to maintain hydration 5. Administer medications for nausea and vomiting as needed Outcome: Progressing T CYTOLOGIST * Initial Assessments - Abelardo Weber RD - 06/30/2022 4:14 PM PLANT CYTOLOGIST CLINICAL DIETITIAN ASSESSMENT NOTE [facility] Juvenal Newcombe 51 y.o. male A: Pt reports a good appetite. No N/V or problems chewing/swallowing. States he has a good understanding of the DM and renal diets. Denied need for diet education. ESRD on PD. K+ has actually been running low lately. Uses insulin pump. A1c 7.8. Previously was on glucerna TID but states he no longerneeds. I: Nutrition Prescription / Intervention / Recommendations: D/t low K+ and on PD, removed renal diet restriction. Changed diet to diabetic, cardiac. Encouraged goal of at least one good protein source each meal and 75% consumption of meal or more. Discussed importance of adequate nutrition for recovery. Reviewed good sources of protein. Pt V/U. Offered ONS to help meet protein needs but pt reports he will meet needs at meals. Allow double protein portions. Diagnosis/Main problems: cardiogenic shock, CAD s/p NSTEMI s/p PCI Patient Active Problem List Diagnosis Code Anemia [...] diabetes mellitus E10.10 Congestive heart failure I50.9 Past Medical History: Diagnosis Date Amplified musculoskeletal pain Diabetes mellitus Heart attack 04/14/2017 HTN (hypertension) Hyperlipidemia Thromboembolism Diet: DIET DIABETIC Renal, PO: not charted yet but good per pt Allergies Allergen Reactions Allopurinol Shortness of Breath/Wheezing and Other (See Comments) Shuts my kidneys down per patient. Chlorhexidine Other (See Comments) Skin peels all over and becomes tender Iodinated Contrast Media Rash Ticagrelor Rash Height: 5' 10 (177.8 cm) (06/29/22 1800) Weight: 117.3 kg (258 lb 8 oz) (06/29/22 1800) Body mass index is 37.09 kg/m??. IBW/kg (Calculated) Female: 68.5 kg (06/29/221799) IBW/kg (Calculated) Male: 73 kg (06/29/22 1800) Wt Readings from Last 15 Encounters: 06/29/22 117.3 kg (258 lb 8 oz) 10/30/19 124.1 kg (273 lb 11.2 oz) 07/31/19 117.9 kg (260 lb) 05/01/19 117.7 kg (259 lb 6.4 oz) 01/29/19 123.5 kg (272 lb 3.2 oz) 10/23/18 122.8 kg (270 lb 11.2 oz) 09/11/18 122.3 kg (269 lb 9.6 oz) 07/17/18 120.1 kg (264 lb 11.2 oz) 06/15/18 117.8 kg (259 lb 12.8 oz) 04/16/18 117.9 kg (260 lb) 02/28/18 118.8 kg (262 lb) 01/18/18 119.3 kg (263 lb) 07/10/17 115.1 kg (253 lb 11.2 oz) 06/05/17 121.1 kg (267 lb) Last Bowel Movement (mm/dd/yyyy): 06/28/22 (06/30/22899) Rex Score: 21 (06/30/22899) Skin: no significant wounds noted See Flowsheet for more wound documentation Edema (per provider section plotter operator charting): +LE Pert Meds: calphron, foltx, furosemide, insulin pump, ssi Pert Labs: glu 213-271 Lab Results Component Value Date/Time NA 133 (L) 06/30/2022 05:46 AM K 3.3 (L) 06/30/2022 05:46 AM BUN 47 (H) 06/30/2022 05:46 AM CREAT 9.78 (H) 06/30/2022 05:46 AM GLUCOSE 241 (H) 06/30/2022 05:46 AM CA 9.1 06/30/2022 05:46 AM ALBUMIN 3.1 (L) 06/30/2022 05:46 AM GFR 6 (L) 06/30/2022 05:46 AM VITAMINDTO 17 (L) 06/30/2022 05:46 AM No results found for: HGBA1C, OOSK1NATA No results found for: CHOLTOT, HDL, LDLCALC, LDLDIRECT, TRIGLYCERIDE D: Increased protein needs r/t altered absorption or metabolism of nutrients as evidenced by ESRD on PD Nutrition Risk: mild d/t good appetite and pt reporting understanding diet M/E: Monitor nutrition, weight, lab values, and skin. Follow up based on nutrition risk or as needed. Abelardo Weber RD, LD T CYTOLOGIST * Care Plan - Aviva Alfaro RN - 06/30/2022 3:25 AM CST Problem: Cardiovascular Goal: Achieve optimal cardiovascular function by discharge or maintain baseline function Outcome: Progressing Flowsheets (Taken 06/29/20221935) Cardiovascular Care Plan Problems: Blood pressure regulation impaired (Hypertension) Cardiac rhythm/rate abnormality Cardiovascular Interventions: Slow progressive position change Activity assistance provided Blood pressure monitoring Cardiac monitoring Problem: Nutrition/Endocrine Goal: Achieve optimal nutrition and fluid status to meet metabolic needs throughout hospitalization Outcome: Progressing Flowsheets (Taken 06/29/20221935) Nutrition/Endocrine Care Plan Problems: Hyperglycemia presence Nutrition/Endocrine Interventions: Blood glucose monitored Food preferences discussed Adherence to prescribed diet encouraged Fluids offered between meals Problem: Musculoskeletal Goal: Achieve optimal musculoskeletal function by discharge or maintain baseline function Outcome: Progressing Flowsheets (Taken 06/29/20221935) Musculoskeletal Care Plan Problems: Acute motor weakness Activity intolerance, Potential/Actual Musculoskeletal Interventions: Mobility promoted [place] in ADL???s promoted Adaptive equipment provided Slow, progressive position changes T CYTOLOGIST documented in this encounter Plan of Treatment Not on file documented as of this encounter Procedures Procedure Name Priority Date/Time Associated Diagnosis Comments EKG 12-LEAD Routine 07/20/2022 1:12 PM PLANT CYTOLOGIST POC GLUCOSE Routine 07/08/2022 12:12 PM PLANT CYTOLOGIST POC GLUCOSE Routine 07/08/2022 7:56 AM PLANT CYTOLOGIST CBC WITH DIFFERENTIAL Routine 07/08/2022 4:53 AM PLANT CYTOLOGIST C-REACTIVE PROTEIN Routine 07/08/2022 4: 53 AM PLANT CYTOLOGIST BRAIN NATRIURETIC PEPTIDE, BNP OR PROBNP Routine 07/08/2022 4:53 AM PLANT CYTOLOGIST MAGNESIUM LEVEL Routine 07/08/2022 4:53 AM PLANT CYTOLOGIST COMPREHENSIVE METABOLIC PANEL Routine 07/08/2022 4:53 AM PLANT CYTOLOGIST POC GLUCOSE Routine 07/07/2022 8:27 PM PLANT CYTOLOGIST POC GLUCOSE Routine 07/07/2022 4:58 PM PLANT CYTOLOGIST POC GLUCOSE Routine 07/07/2022 11:38 AM PLANT CYTOLOGIST POC GLUCOSE Routine 07/07/2022 7:29 AM PLANT CYTOLOGIST POC GLUCOSE Routine 07/06/2022 8:10 PM PLANT CYTOLOGIST POC GLUCOSE Routine 07/06/2022 4:44 PM PLANT CYTOLOGIST POC GLUCOSE Routine 07/06/2022 12:21 PM PLANT CYTOLOGIST POC GLUCOSE Routine 07/06/2022 7:21 AM PLANT CYTOLOGIST POC GLUCOSE Routine 07/05/2022 8:19 PM PLANT CYTOLOGIST POC GLUCOSE Routine 07/05/2022 4:26 PM PLANT CYTOLOGIST POC GLUCOSE Routine 07/05/2022 11:30 AM PLANT CYTOLOGIST POC GLUCOSE Routine 07/05/2022 7:31 AM PLANT CYTOLOGIST POC GLUCOSE Routine 07/04/2022 9:01 PM PLANT CYTOLOGIST POC GLUCOSE Routine 07/04/2022 4:49 PM PLANT CYTOLOGIST POC GLUCOSE Routine 07/04/2022 11:32 AM PLANT CYTOLOGIST CBC WITH DIFFERENTIAL Routine 07/04/2022 11:09 AM PLANT CYTOLOGIST C-REACTIVE PROTEIN Routine 07/04/2022 11 :09 AM PLANT CYTOLOGIST BRAIN NATRIURETIC PEPTIDE, BNP OR PROBNP Routine 07/04/2022 11:09 AM PLANT CYTOLOGIST MAGNESIUM LEVEL Routine 07/04/2022 11:09 AM PLANT CYTOLOGIST COMPREHENSIVE METABOLIC PANEL Routine 07/04/2022 11:09 AM PLANT CYTOLOGIST POC GLUCOSE Routine 07/04/2022 7:17 AM PLANT CYTOLOGIST POC GLUCOSE Routine 07/03/2022 8:09 PM PLANT CYTOLOGIST POC GLUCOSE Routine 07/03/2022 4:31 PM PLANT CYTOLOGIST POC GLUCOSE Routine 07/03/2022 11:22 AM PLANT CYTOLOGIST XR CHEST PA OR AP 1 VW Routine 9:35 AM PLANT CYTOLOGIST POC GLUCOSE Routine 07/03/2022 7:35 AM PLANT CYTOLOGIST CBC WITH DIFFERENTIAL Routine 07/03/2022 5:44 AM PLANT CYTOLOGIST C-REACTIVE PROTEIN Routine 07/03/2022 5: 44 AM PLANT CYTOLOGIST BRAIN NATRIURETIC PEPTIDE, BNP OR PROBNP Routine 07/03/2022 5:44 AM PLANT CYTOLOGIST MAGNESIUM LEVEL Routine 07/03/2022 5:44 AM PLANT CYTOLOGIST CK Routine 07/03/2022 5:44 AM PLANT CYTOLOGIST COMPREHENSIVE METABOLIC PANEL Routine 07/03/2022 5:44 AM PLANT CYTOLOGIST POC GLUCOSE Routine 07/02/2022 7:51 PM PLANT CYTOLOGIST POC GLUCOSE Routine 07/02/2022 4:31 PM PLANT CYTOLOGIST POC GLUCOSE Routine 07/02/2022 12:06 PM PLANT CYTOLOGIST POC GLUCOSE Routine 07/02/2022 7:37 AM PLANT CYTOLOGIST POC GLUCOSE Routine 07/01/2022 7:46 PM PLANT CYTOLOGIST POC GLUCOSE Routine 07/01/2022 5:00 PM PLANT CYTOLOGIST POC GLUCOSE Routine 07/01/2022 12:11 PM PLANT CYTOLOGIST POC GLUCOSE Routine 07/01/2022 7:21 AM PLANT CYTOLOGIST CBC WITH DIFFERENTIAL Routine 07/01/2022 5:19 AM PLANT CYTOLOGIST URIC ACID Routine 07/01/2022 5:19 AM PLANT CYTOLOGIST RENAL FUNCTION PANEL Routine 07/01/2022 5:19 AM PLANT CYTOLOGIST POC GLUCOSE Routine 06/30/2022 8:10 PM PLANT CYTOLOGIST POC GLUCOSE Routine 06/30/2022 4:31 PM PLANT CYTOLOGIST URINALYSIS W/REFLEX MICROSCOPIC Routine 06/30/2022 2:55 PM PLANT CYTOLOGIST URINE CULTURE Routine 06/30/2022 2:55 PM PLANT CYTOLOGIST POC GLUCOSE Routine 06/30/2022 11:42 AM PLANT CYTOLOGIST POC GLUCOSE Routine 06/30/2022 7:03 AM PLANT CYTOLOGIST HEPATITIS B SURFACE AB, QUANT Routine 06/30/2022 5:46 AM PLANT CYTOLOGIST TSH REFLEXIVE Routine 06/30/2022 5:46 AM PLANT CYTOLOGIST HEPATITIS B SURFACE ANTIGEN Routine 06/30/2022 5:46 AM PLANT CYTOLOGIST CBC WITH DIFFERENTIAL Routine 06/30/2022 5:46 AM PLANT CYTOLOGIST VITAMIN D 25 HYDROXY Routine 06/30/2022 5:46 AM PLANT CYTOLOGIST VITAMIN B12 LEVEL Routine 06/30/2022 5:4 6 AM PLANT CYTOLOGIST COMPREHENSIVE METABOLIC PANEL Routine 06/30/2022 5:46 AM PLANT CYTOLOGIST POC GLUCOSE Routine 06/29/2022 9:52 PM PLANT CYTOLOGIST POC GLUCOSE Routine 06/29/2022 4:28 PM PLANT CYTOLOGIST documented in this encounter Results * EKG 12-LEAD (07/20/2022 1:12 PM PLANT CYTOLOGIST) Avni Clifford [facility] ECG ORDERABLES [facility] CARDIOLOG[facility] [address] [facility] [place] [id number] * (ABNORMAL) POC GLUCOSE (07/08/2022 12:12 PM PLANT CYTOLOGIST) GLUCOSE POC 272(H) 74 - 99 mg/dL 07/08/2022 12:[address] [facility] SPECIMEN SOURCE, GLUCOSE POC Whole Blood 07/08/2022 12:[address] [facility] COMMENT, GLU POC Notified RN/MD 07/08/2022 12:12 PM [facility] Blood, whole 07/08/2022 12:1 2 PM PLANT CYTOLOGIST 07/08/2022 12:21 PM PLANT CYTOLOGIST Srinivas Jon MD POINT OF CARE GERONIMO Crow [facility] CLIA # [id number] [place] [address] * POC GLUCOSE (07/08/2022 7:56 AM PLANT CYTOLOGIST) GLUCOSE POC 78 74 - 99 mg/dL 07/08/2022 7:[address] [facility] SPECIMEN SOURCE, GLUCOSE POC Whole Blood 07/08/2022 7:[address] [facility] Blood, whole 07/08/2022 7:56 AM PLANT CYTOLOGIST 07/08/2022 8:06 AM PLANT CYTOLOGIST Srinivas Jon MD POINT OF CARE GERONIMO Crow [facility] CLIA # [id number] [place] [address] * (ABNORMAL) BRAIN NATRIURETIC PEPTIDE, BNP OR PROBNP (07/08/2022 4:53 AM PLANT CYTOLOGIST) PROBNP, N TERMINAL 7,021(H) <124 pg/mL 07/08/2022 10:19 AM PLANT CYTOLOGIST [facility] LABORATORY [facility] Comment: Reference values for screening purposes based on printing agent's recommendation: Patients less than 75 years: <125 pg/mL Patients 75 years and older: <450 pg/mL Reference values for determination of acute congestive heart failure in dyspneic patients based on PRIDE study (Am J Cardiol 2005;95:948): Patients less than 50 years: <450 pg/mL (Negative predictive value= 99%) Patients 50 years and older: <900 pg/mL (Negative predictive value= 92%) Rule out cutpoint, all ages: <300 pg/mL (Negative predictive value= 99%) Blood Venipuncture / Unknown 07/08/2022 4:53 AM PLANT CYTOLOGIST 07/08/2022 9:49 AM PLANT CYTOLOGIST Avni Clifford [employer] MATTHEW LEONE Performing Organization Address [facility]/ZIP Co de Phone Number [facility] [employer] [facility] CLIA# [id number] [address] [place] [address] * C-REACTIVE PROTEIN (07/08/2022 4:53 AM PLANT CYTOLOGIST) CRP <3.0 <5.0 mg/L 07/08/2022 10:19 AM PLANT CYTOLOGIST [facility] [employer] [facility] Blood Venipuncture / Unknown 07/08/2022 4:53 AM PLANT CYTOLOGIST 07/08/2022 9:49 AM PLANT CYTOLOGIST Avni LEONE Performing Organization Address [facility] Co de Phone Number [facility] [employer] [facility] CLAL# [id number] [address] [place] [address] * MAGNESIUM LEVEL (07/08/2022 4:53 AM PLANT CYTOLOGIST) MAGNESIUM 1.7 1.6 - 2.6 mg/dL 07/08/2022 10:19 AM PLANT CYTOLOGIST [facility] [employer] [facility] Blood Venipuncture / Unknown 07/08/2022 4:53 AM PLANT CYTOLOGIST 07/08/2022 9:49 AM PLANT CYTOLOGIST Avni Clifford [employer] MATTHEW LEONE Performing Organization Address [facility]/ZIP Co de Phone Number [facility] [employer] [id number] [address] [place] [address] * (ABNORMAL) COMPREHENSIVE METABOLIC PANEL (07/08/2022 4:53 AM PLANT CYTOLOGIST) SODIUM 139 136 - 145 mmol/L 07/08/2022 10:21 AM PLANT CYTOLOGIST [facility] [employer] [facility] POTASSIUM 3.6 3.5 - 5.0 mmol/L 07/08/2022 10:21 AM [facility] [employer] LABORATORY [facility]. [facility] CHLORIDE 99 98 - 107 mmol/L 07/08/2022 10:21 AM [facility] [employer] LABORATORY [facility] CO2 28 22 - 29 mmol/L 07/08/2022 10:21 AM [facility] CALCIUM 9.4 8.6 - 10.2 mg/dL 07/08/2022 10:21 AM [facility] LABORAT[facility] BUN 40(H) 6 - 20 mg/dL 07/08/2022 10:21 AM [facility] [employer] [facility] CREATININE 6.94(H) 0.67 - 1.17 mg/dL 07/08/2022 10:21 AM [facility] [employer] [facility] GLUCOSE 82 74 - 99 mg/dL 07/08/2022 10:21 AM [facility] TOTAL PROTEIN 6.1(L) 6.7 - 8.6 g/dL 07/08/2022 10:21 AM [facility] [employer] [facility] ALBUMIN 3.2(L) 3.5 - 5.2 g/dL 07/08/2022 10:21 AM [facility] [employer] [facility] BILIRUBIN TOTAL 0.3 0.3 - 1.2 mg/dL 07/08/2022 10:21 AM [facility] ALKALINE PHOSPHATASE 99 40 - 129 U/L 07/08/2022 10:21 AM [facility] AST 49(H) <41 U/L 07/08/2022 10:21 AM [facility] [employer] [facility] ALT 54(H) <42 U/L 07/08/2022 10:21 AM [facility] [employer] [facility] GFR 9(L) >=60 mL/min/1.7 3 sq meter 07/08/2022 10:21 AM [facility] [employer] [facility] Comment:eGFR calculated with 2020 CKD-EPI equation. Vegetarian diet, extremely high or low muscle mass, and may affect results. Cystatin C with Glomerular Filtration Rate is a suitable alternative for these patients. ANION GAP 12 8 - 16 mmol/L 07/08/2022 10:21 AM PLANT CYTOLOGIST [employer] [facility] Blood Venipuncture / Unknown 07/08/2022 4:53 AM PLANT CYTOLOGIST 07/08/2022 9:49 AM [facility] [employer] [facility] - 07/08/2022 10:21 AM PLANT CYTOLOGIST Samples containing indocyanine green cause interferences on Total and/or Direct Bilirubin and must not be measured. Avni Clifford [facility] CHEMISTRY SUSANNAH LEONE [facility] [employer] [facility] CLIA# [id number] [address] [place] [address] * (ABNORMAL) CBC WITH DIFFERENTIAL (07/08/2022 4:53 AM PLANT CYTOLOGIST) WBC 3.6(L) 4.0 - 9.8 K/uL 07/08/2022 10:12 AM [facility] [employer] [facility] RBC 3.03(L) 4.50 - 5.40 M/uL 07/08/2022 10:12 AM [facility] [employer] [facility] HEMOGLOBIN 9.2(L) 13.6 - 16.5 g/dL 07/08/2022 10:12 AM [facility] [employer] [facility] HEMATOCRIT 28.5(L) 40.0 - 48.0 % 07/08/2022 10:12 AM [facility] MCV 94.1 82.0 - 99.0 fL 07/08/2022 10:12 AM [facility] [employer] [facility] MCH 30.4 27.2 - 32.6 pg 07/08/2022 10:12 AM [facility] [employer] [facility] MCHC 32.3 31.5 - 35.5 g/dL 07/08/2022 10:12 AM [facility] [employer] [facility] RDW 15.5(H) 11.5 - 14.5 % 07/08/2022 10:12 AM [facility] [employer] [facility] RDW-STDEV 53.3(H) 37.1 - 48.7 fL 07/08/2022 10:12 AM [facility] [employer] [facility] PLATELETS 247 140 - 350 K/uL 07/08/2022 10:12 AM PLANT CYTOLOGIST [employer] LABORATORY [facility] MPV 9.5 9.3 - 12.4 fL 07/08/2022 10:12 AM [facility] [facility] NEUTROPHILS 40 % 07/08/2022 10:12 AM PLANT CYTOLOGIST [facility] LYMPHOCYTES 40 % 07/08/2022 10:12 AM PLANT CYTOLOGIST [facility] MONOCYTES 14 % 07/08/2022 10:12 AM PLANT CYTOLOGIST [facility] EOSINOPHILS 5 % 07/08/2022 10:12 AM PLANT CYTOLOGIST [facility] BASOPHILS 1 % 07/08/2022 10:12 AM PLANT CYTOLOGIST [facility] IMMATURE GRANULOCYTES 0 % 07/08/2022 10:12 AM [facility] NEUTROPHIL ABSOLUTE 1.46(L) 1.90 - 7.00 K/uL 07/08/2022 10:12 AM PLANT CYTOLOGIST [facility] LYMPHOCYTE ABSOLUTE 1.43 0.70 - 4.50 K/uL 07/08/2022 10:12 AM PLANT CYTOLOGIST [facility] MONOCYTE ABSOLUTE 0.52 0.10 - 1.30 K/uL 07/08/2022 10:12 AM [facility] EOSINOPHIL ABSOLUTE 0.17 0.00 - 0.70 K/uL 07/08/2022 10:12 AM [employer] [facility] BASOPHILS ABSOLUTE 0.03 0.00 - 0.20 K/uL 07/08/2022 10:12 AM PLANT CYTOLOGIST [facility] IMMATURE GRANULOCYTES ABSOLUTE 0.01 0.00 - 0.03 K/uL 07/08/2022 10:12 AM PLANT CYTOLOGIST [facility] Blood Venipuncture / Unknown 07/08/2022 4:53 AM PLANT CYTOLOGIST 07/08/2022 9:49 AM PLANT CYTOLOGIST Avni Clifford DMS HEMATOLOGY ORD ERABLES [facility] CLIA# [id number] [address] [facility] [place] [address] * (ABNORMAL) POC GLUCOSE (07/07/2022 8:27 PM PLANT CYTOLOGIST) GLUCOSE POC 246(H) 74 - 99 mg/dL 07/07/2022 8:[address] [facility] SPECIMEN SOURCE, GLUCOSE POC Whole Blood 07/07/2022 8:[address] [facility] Blood, whole 07/07/2022 8:27 PM PLANT CYTOLOGIST 07/07/2022 8:36 PM PLANT CYTOLOGIST Srinivas Jon MD POINT OF CARE TESTIN G [facility] CLIA # [id number] [place] [address] * (ABNORMAL) POC GLUCOSE (07/07/2022 4:58 PM PLANT CYTOLOGIST) GLUCOSE POC 332(H) 74 - 99 mg/dL 07/07/2022 4:[address] [facility] SPECIMEN SOURCE, GLUCOSE POC Whole Blood 07/07/2022 4:[address] [facility] COMMENT, GLU POC Notified RN/MD 07/07/2022 4:58 PM [facility] Blood, whole 07/07/2022 4:58 PM PLANT CYTOLOGIST 07/07/2022 5:11 PM PLANT CYTOLOGIST Srinivas Jon MD POINT OF CARE TESTDUSTIN Crow [facility] CLIA # [id number] [place] [address] * (ABNORMAL) POC GLUCOSE (07/07/2022 11:38 AM PLANT CYTOLOGIST) GLUCOSE POC 270(H) 74 - 99 mg/dL 07/07/2022 11:[address] [facility] SPECIMEN SOURCE, GLUCOSE POC Whole Blood 07/07/2022 11:38 AM [facility] Blood, whole 07/07/2022 11:3 8 AM PLANT CYTOLOGIST 07/07/2022 11:53 AM PLANT CYTOLOGIST Srinivas Jon MD POINT OF CARE TESTDUSTIN Crow [facility] CLIA # [id number] [place] [address] * (ABNORMAL) POC GLUCOSE (07/07/2022 7:29 AM PLANT CYTOLOGIST) GLUCOSE POC 119(H) 74 - 99 mg/dL 07/07/2022 7:[address] [facility] SPECIMEN SOURCE, GLUCOSE POC Whole Blood 07/07/2022 7:[address] [facility] Blood, whole 07/07/2022 7:29 AM PLANT CYTOLOGIST 07/07/2022 7:54 AM PLANT CYTOLOGIST Srinivas Jon MD POINT OF CARE TESTDUSTIN Crow Performing Organization Address [facility]/ZIP Co de Phone Number [facility] CLIA # [id number] [place] [address] * (ABNORMAL) POC GLUCOSE (07/06/2022 8:10 PM PLANT CYTOLOGIST) GLUCOSE POC 341(H) 74 - 99 mg/dL 07/06/2022 8:[address] [facility] SPECIMEN SOURCE, GLUCOSE POC Whole Blood 07/06/2022 8:[address] [facility] COMMENT, GLU POC Notified RN/MD 07/06/2022 8:[address] [facility] Blood, whole 07/06/2022 8:10 PM PLANT CYTOLOGIST 07/06/2022 8:39 PM PLANT CYTOLOGIST Srinivas Jon MD POINT OF CARE TESTDUSTIN Crow [facility] CLIA # [id number] [place] [address] * (ABNORMAL) POC GLUCOSE (07/06/2022 4:44 PM PLANT CYTOLOGIST) GLUCOSE POC 257(H) 74 - 99 mg/dL 07/06/2022 4:[address] [facility] SPECIMEN SOURCE, GLUCOSE POC Whole Blood 07/06/2022 4:[address] [facility] Blood, whole 07/06/2022 4:44 PM PLANT CYTOLOGIST 07/06/2022 5:01 PM PLANT CYTOLOGIST Srinivas Jon MD POINT OF CARE TESTDUSTIN Crow Performing Organization Address City/[facility]/ZIP Co de Phone Number [facility] CLIA # [id number] [place] [address] * (ABNORMAL) POC GLUCOSE (07/06/2022 12:21 PM PLANT CYTOLOGIST) GLUCOSE POC 251(H) 74 - 99 mg/dL 07/06/2022 12:[address] [facility] SPECIMEN SOURCE, GLUCOSE POC Whole Blood 07/06/2022 12:[address] [facility] Blood, whole 07/06/2022 12:2 1 PM PLANT CYTOLOGIST 07/06/2022 12:33 PM PLANT CYTOLOGIST Srinivas Jon MD POINT OF CARE TESTDUSTIN Crow Performing Organization Address City/[facility]/ZIP Co de Phone Number [facility] CLIA # [id number] [place] [address] * POC GLUCOSE (07/06/2022 7:21 AM PLANT CYTOLOGIST) GLUCOSE POC 80 74 - 99 mg/dL 07/06/2022 7:[address] [facility] SPECIMEN SOURCE, GLUCOSE POC Whole Blood 07/06/2022 7:[address] [facility] Blood, whole 07/06/2022 7:21 AM PLANT CYTOLOGIST 07/06/2022 7:57 AM PLANT CYTOLOGIST Srinivas Jon MD POINT OF CARE TESTDUSTIN Crow [facility] CLIA # [id number] [place] [address] * (ABNORMAL) POC GLUCOSE (07/05/2022 8:19 PM PLANT CYTOLOGIST) GLUCOSE POC 340(H) 74 - 99 mg/dL 07/05/2022 8:[address] [facility] SPECIMEN SOURCE, GLUCOSE POC Whole Blood 07/05/2022 8:[address] [facility] COMMENT, GLU POC Notified RN/MD 07/05/2022 8:[address] [facility] Blood, whole 07/05/2022 8:19 PM PLANT CYTOLOGIST 07/05/2022 9:22 PM PLANT CYTOLOGIST Srinivas Jon MD POINT OF CARE TESTDUSTIN Crow Performing Organization Address City/[facility]/ZIP Co de Phone Number [facility] CLIA # [id number] [place] [address] * (ABNORMAL) POC GLUCOSE (07/05/2022 4:26 PM PLANT CYTOLOGIST) GLUCOSE POC 352(H) 74 - 99 mg/dL 07/05/2022 4:26 PM [facility] SPECIMEN SOURCE, GLUCOSE POC Whole Blood 07/05/2022 4:26 PM [facility] Blood, whole 07/05/2022 4:26 PM PLANT CYTOLOGIST 07/05/2022 4:37 PM PLANT CYTOLOGIST Srinivas Jon MD POINT OF CARE TESTDUSTIN Crow [facility] CLIA # [id number] [place] [address] * (ABNORMAL) POC GLUCOSE (07/05/2022 11:30 AM PLANT CYTOLOGIST) GLUCOSE POC 286(H) 74 - 99 mg/dL 07/05/2022 11:[address] [facility] SPECIMEN SOURCE, GLUCOSE POC Whole Blood 07/05/2022 11:[address] [facility] Blood, whole 07/05/2022 11:3 0 AM PLANT CYTOLOGIST 07/05/2022 11:48 AM PLANT CYTOLOGIST Srinivas Jon MD POINT OF CARE TESTIN G Performing Organization Address City/[facility]/ZIP Co de Phone Number [facility] CLIA # [id number] [place] [address] * (ABNORMAL) POC GLUCOSE (07/05/2022 7:31 AM PLANT CYTOLOGIST) GLUCOSE POC 124(H) 74 - 99 mg/dL 07/05/2022 7:31 AM [facility] SPECIMEN SOURCE, GLUCOSE POC Whole Blood 07/05/2022 7:31 AM [facility] Blood, whole 07/05/2022 7:31 AM PLANT CYTOLOGIST 07/05/2022 7:42 AM PLANT CYTOLOGIST Srinivas Jon MD POINT OF CARE TESTDUSTIN G Performing Organization Address [facility]/ZIP Co de Phone Number [facility] CLIA # [id number] [place] [address] * (ABNORMAL) POC GLUCOSE (07/04/2022 9:01 PM PLANT CYTOLOGIST) GLUCOSE POC 330(H) 74 - 99 mg/dL 07/04/2022 9:[address] [facility] SPECIMEN SOURCE, GLUCOSE POC Whole Blood 07/04/2022 9:[address] [facility] COMMENT, GLU POC Notified RN/MD 07/04/2022 9:01 PM [facility] Blood, whole 07/04/2022 9:01 PM PLANT CYTOLOGIST 07/04/2022 9:19 PM PLANT CYTOLOGIST Srinivas Jon MD POINT OF CARE TESTDUSTIN Crow Performing Organization Address City/[facility]/ZIP Co de Phone Number [facility] CLIA # [id number] [place] [address] * (ABNORMAL) POC GLUCOSE (07/04/2022 4:49 PM PLANT CYTOLOGIST) GLUCOSE POC 294(H) 74 - 99 mg/dL 07/04/2022 4:[address] [facility] SPECIMEN SOURCE, GLUCOSE POC Whole Blood 07/04/2022 4:[address] [facility] COMMENT, GLU POC Notified RN/MD 07/04/2022 4:49 PM [facility] Blood, whole 07/04/2022 4:49 PM PLANT CYTOLOGIST 07/04/2022 5:05 PM PLANT CYTOLOGIST Srinivas Jon MD POINT OF CARE TESTDUSTIN Crow [facility] CLIA # [id number] [place] [address] * (ABNORMAL) POC GLUCOSE (07/04/2022 11:32 AM PLANT CYTOLOGIST) GLUCOSE POC 266(H) 74 - 99 mg/dL 07/04/2022 11:32 AM [facility] SPECIMEN SOURCE, GLUCOSE POC Whole Blood 07/04/2022 11:32 AM [facility] COMMENT, GLU POC Notified RN/MD 07/04/2022 11:32 AM [facility] Blood, whole 07/04/2022 11:3 2 AM PLANT CYTOLOGIST 07/04/2022 11:48 AM PLANT CYTOLOGIST Srinivas Jon MD POINT OF CARE TESTDUSTIN Crow [facility] CLIA # [id number] [place] [address] * (ABNORMAL) BRAIN NATRIURETIC PEPTIDE, BNP OR PROBNP (07/04/2022 11:09 AM PLANT CYTOLOGIST) PROBNP, N TERMINAL 4,687(H) <124 pg/mL 07/04/2022 1:03 PM [facility] Comment: Reference values for screening purposes based on printing agent's recommendation: Patients less than 75 years: <125 pg/mL Patients 75 years and older: <450 pg/mL Reference values for determination of acute congestive heart failure in dyspneic patients based on PRIDE study (Am J Cardiol 2005;95:948): Patients less than 50 years: <450 pg/mL (Negative predictive value= 99%) Patients 50 years and older: <900 pg/mL (Negative predictive value= 92%) Rule out cutpoint, all ages: <300 pg/mL (Negative predictive value= 99%) Blood Venipuncture / Unknown 07/04/2022 11:09 AM PLANT CYTOLOGIST 07/04/2022 12:22 PM PLANT CYTOLOGIST [employer] [facility] CHEMISTRY ORDE CNZZCLYDE Performing Organization Address [facility]/ZIP Co de Phone Number [facility] CLIA# [id number] [address] [place] [address] * (ABNORMAL) C-REACTIVE PROTEIN (07/04/2022 11:09 AM PLANT CYTOLOGIST) CRP 5.0(H) <5.0 mg/L 07/04/2022 1:03 PM PLANT CYTOLOGIST [facility] Blood Venipuncture / Unknown 07/04/2022 11:09 AM PLANT CYTOLOGIST 07/04/2022 12:22 PM PLANT CYTOLOGIST Avni Clifford [employer] CHEMISTRY ORDE CNZZCLYDE [facility] CLIA# [id number] [address] [place], [place] [address] * MAGNESIUM LEVEL (07/04/2022 11:09 AM PLANT CYTOLOGIST) MAGNESIUM 1.8 1.6 - 2.6 mg/dL 07/04/2022 1:03 PM PLANT CYTOLOGIST [facility] [employer] [facility] Blood Venipuncture / Unknown 07/04/2022 11:09 AM PLANT CYTOLOGIST 07/04/2022 12:22 PM PLANT CYTOLOGIST Avni Clifford DMS CHEMISTRY SUSANNAH LEONE [facility]ATORY SERVICES - [facility] CLIA# [id number] [address] [place] [address] * (ABNORMAL) COMPREHENSIVE METABOLIC PANEL (07/04/2022 11:09 AM PLANT CYTOLOGIST) SODIUM 134(L) 136 - 145 mmol/L 07/04/2022 1:04 PM [facility] POTASSIUM 4.7 3.5 - 5.0 mmol/L 07/04/2022 1:04 PM [facility] LABORATORY SERVICES - . [facility] CHLORIDE 95(L) 98 - 107 mmol/L 07/04/2022 1:04 PM [facility] - . [facility] CO2 24 22 - 29 mmol/L 07/04/2022 1:04 PM [facility] CALCIUM 9.1 8.6 - 10.2 mg/dL 07/04/2022 1:04 PM [facility] BUN 49(H) 6 - 20 mg/dL 07/04/2022 1:04 PM [facility] LABORATORY SERVICES - . [facility] CREATININE 8.63(H) 0.67 - 1.17 mg/dL 07/04/2022 1:04 PM [facility] - . [place] GLUCOSE 304(H) 74 - 99 mg/dL 07/04/2022 1:04 PM [facility] - . [facility] TOTAL PROTEIN 6.3(L) 6.7 - 8.6 g/dL 07/04/2022 1:04 PM [facility] ALBUMIN 3.1(L) 3.5 - 5.2 g/dL 07/04/2022 1:04 PM [facility] - . [facility] BILIRUBIN TOTAL 0.4 0.3 - 1.2 mg/dL 07/04/2022 1:04 PM [facility] - [facility] ALKALINE PHOSPHATASE 107 40 - 129 U/L 07/04/2022 1:04 PM [facility] AST 48(H) <41 U/L 07/04/2022 1:04 PM [facility] ALT 44(H) <42 U/L 07/04/2022 1:04 PM [facility] GFR 7(L) >=60 mL/min/1.7 3 sq meter 07/04/2022 1:04 PM [facility] Comment:eGFR calculated with 2020 CKD-EPI equation. Vegetarian diet, extremely high or low muscle mass, and may affect results. Cystatin C with Glomerular Filtration Rate is a suitable alternative for these patients. ANION GAP 15 8 - 16 mmol/L 07/04/2022 1:04 PM [facility] Blood Venipuncture / Unknown 07/04/2022 11:09 AM PLANT CYTOLOGIST 07/04/2022 12:22 PM [facility] - 07/04/2022 1:04 PM [facility] Samples containing indocyanine green cause interferences on Total and/or Direct Bilirubin and must not be measured. Avni Clifford [facility] CHEMISTRY [facility]NA[facility]# [id number] [address] [facility] [place] [address] * (ABNORMAL) CBC WITH DIFFERENTIAL (07/04/2022 11:09 AM PLANT CYTOLOGIST) [facility] WBC 4.1 4.0 - 9.8 K/uL 07/04/2022 12:29 PM [facility] RBC 2.96(L) 4.50 - 5.40 M/uL 07/04/2022 12:29 PM [facility] HEMOGLOBIN 8.9(L) 13.6 - 16.5 g/dL 07/04/2022 12:29 PM [facility] HEMATOCRIT 28.1(L) 40.0 - 48.0 % 07/04/2022 12:29 PM PLANT CYTOLOGIST [facility] MCV 94.9 82.0 - 99.0 fL 07/04/2022 12:29 PM PLANT CYTOLOGIST [facility] MCH 30.1 27.2 - 32.6 pg 07/04/2022 12:29 PM PLANT CYTOLOGIST [facility] MCHC 31.7 31.5 - 35.5 g/dL 07/04/2022 12:29 PM PLANT CYTOLOGIST [facility] RDW 15.8(H) 11.5 - 14.5 % 07/04/2022 12:29 PM PLANT CYTOLOGIST [facility] [facility] - [facility] RDW-STDEV 54.1(H) 37.1 - 48.7 fL 07/04/2022 12:29 PM PLANT CYTOLOGIST [facility] PLATELETS 323 140 - 350 K/uL 07/04/2022 12:29 PM PLANT CYTOLOGIST [facility] MPV 9.1(L) 9.3 - 12.4 fL 07/04/2022 12:29 PM PLANT CYTOLOGIST [facility] NEUTROPHILS 55 % 07/04/2022 12:29 PM PLANT CYTOLOGIST [facility] LYMPHOCYTES 27 % 07/04/2022 12:29 PM PLANT CYTOLOGIST [facility] MONOCYTES 13 % 07/04/2022 12:29 PM PLANT CYTOLOGIST [facility] EOSINOPHILS 3 % 07/04/2022 12:29 PM PLANT CYTOLOGIST [facility] BASOPHILS 1 % 07/04/2022 12:29 PM PLANT CYTOLOGIST [facility] IMMATURE GRANULOCYTES 1 % 07/04/2022 12:29 PM PLANT CYTOLOGIST [facility] Comment:IG (Immature Granulo cyte) count includes Metamyelocytes, Myelocytes, and Promyelocytes NEUTROPHIL ABSOLUTE 2.29 1.90 - 7.00 K/uL 07/04/2022 12:29 PM PLANT CYTOLOGIST [facility] LYMPHOCYTE ABSOLUTE 1.13 0.70 - 4.50 K/uL 07/04/2022 12:29 PM PLANT CYTOLOGIST [facility] MONOCYTE ABSOLUTE 0.53 0.10 - 1.30 K/uL 07/04/2022 12:29 PM PLANT CYTOLOGIST [facility] EOSINOPHIL ABSOLUTE 0.14 0.00 - 0.70 K/uL 07/04/2022 12:29 PM [facility] LABORATORY [facility] BASOPHILS ABSOLUTE 0.03 0.00 - 0.20 K/uL 07/04/2022 12:29 PM [facility] LABORATORY [facility] IMMATURE GRANULOCYTES ABSOLUTE 0.02 0.00 - 0.03 K/uL 07/04/2022 12:29 PM [facility] LABORATORY [facility] Blood Venipuncture / Unknown 07/04/2022 11:09 AM PLANT CYTOLOGIST 07/04/2022 12:22 PM PLANT CYTOLOGIST [employer] [facility] HEMATOLOGY ORD ERABLES [facility] CLIA# [id number] [address] [facility] [place] [address] * POC GLUCOSE (07/04/2022 7:17 AM PLANT CYTOLOGIST) GLUCOSE POC 89 74 - 99 mg/dL 07/04/2022 7:17 AM [facility] SPECIMEN SOURCE, GLUCOSE POC Whole Blood 07/04/2022 7:17 AM [facility] COMMENT, GLU POC Notified RN/MD 07/04/2022 7:17 AM [facility] Blood, whole 07/04/2022 7:17 AM PLANT CYTOLOGIST 07/04/2022 7:39 AM PLANT CYTOLOGIST Srinivas Jon MD POINT OF CARE TESTIN G [facility] CLIA # [id number] [place], [place] [address] * (ABNORMAL) POC GLUCOSE (07/03/2022 8:09 PM PLANT CYTOLOGIST) GLUCOSE POC 271(H) 74 - 99 mg/dL 07/03/2022 8:09 PM [facility] SPECIMEN SOURCE, GLUCOSE POC Whole Blood 07/03/2022 8:09 PM [facility] Blood, whole 07/03/2022 8:09 PM PLANT CYTOLOGIST 07/03/2022 8:24 PM PLANT CYTOLOGIST Srinivas Jon MD POINT OF CARE TESTIN G [facility] CLIA # [id number] [place] [address] * (ABNORMAL) POC GLUCOSE (07/03/2022 4:31 PM PLANT CYTOLOGIST) GLUCOSE POC 368(H) 74 - 99 mg/dL 07/03/2022 4:[address] [facility] SPECIMEN SOURCE, GLUCOSE POC Whole Blood 07/03/2022 4:[address] [facility] COMMENT, GLU POC Notified RN/MD 07/03/2022 4:[address] [facility] Blood, whole 07/03/2022 4:31 PM PLANT CYTOLOGIST 07/03/2022 4:45 PM PLANT CYTOLOGIST Srinivas Jon MD POINT OF CARE TESTDUSTIN G Performing Organization Address [facility]/ZIP Co de Phone Number [facility] CLIA # [id number] [place] [address] * (ABNORMAL) POC GLUCOSE (07/03/2022 11:22 AM PLANT CYTOLOGIST) GLUCOSE POC 316(H) 74 - 99 mg/dL 07/03/2022 11:[address] [facility] SPECIMEN SOURCE, GLUCOSE POC Whole Blood 07/03/2022 11:[address] [facility] COMMENT, GLU POC Notified RN/MD 07/03/2022 11:[address] [facility] Blood, whole 07/03/2022 11:2 2 AM PLANT CYTOLOGIST 07/03/2022 11:35 AM PLANT CYTOLOGIST Srinivas Jon MD POINT OF CARE TESTDUSTIN G [facility] CLIA # [id number] [place] [address] * XR CHEST PA OR AP 1 VW (07/03/2022 9:35 AM PLANT CYTOLOGIST) Anatomical Region Laterality Modality Chest Other Avni Clifford DMS DIAGNOSTIC AMARILYS GING ORDERABLES * POC GLUCOSE (07/03/2022 7:35 AM PLANT CYTOLOGIST) GLUCOSE POC 80 74 - 99 mg/dL 07/03/2022 7:[address] [facility] SPECIMEN SOURCE, GLUCOSE POC Whole Blood 07/03/2022 7:[address] [facility] Blood, whole 07/03/2022 7:35 AM PLANT CYTOLOGIST 07/03/2022 7:43 AM PLANT CYTOLOGIST Srinivas Jon MD POINT OF CARE TESTIN G [facility] CLIA # [id number] [place] [address] * CK (07/03/2022 5:44 AM PLANT CYTOLOGIST) Pathologist [facility] CK 37 20 - 200 U/L 07/03/2022 9:02 AM PLANT CYTOLOGIST [facility] Blood Venipuncture / Unknown 07/03/2022 5:44 AM PLANT CYTOLOGIST 07/03/2022 8:17 AM PLANT CYTOLOGIST Jasmin Bradley MD CHEMISTRY ORDERABLES [facility] [employer] [facility] CLIA# [id number] [address] [facility] [place] [address] * (ABNORMAL) BRAIN NATRIURETIC PEPTIDE, BNP OR PROBNP (07/03/2022 5:44 AM PLANT CYTOLOGIST) PROBNP, N TERMINAL 5,888(H) <124 pg/mL 07/03/2022 9:02 AM PLANT CYTOLOGIST [facility] Comment: Reference values for screening purposes based on printing agent's recommendation: Patients less than 75 years: <125 pg/mL Patients 75 years and older: <450 pg/mL Reference values for determination of acute congestive heart failure in dyspneic patients based on PRIDE study (Am J Cardiol 2005;95:948): Patients less than 50 years: <450 pg/mL (Negative predictive value= 99%) Patients 50 years and older: <900 pg/mL (Negative predictive value= 92%) Rule out cutpoint, all ages: <300 pg/mL (Negative predictive value= 99%) Blood Venipuncture / Unknown 07/03/2022 5:44 AM PLANT CYTOLOGIST 07/03/2022 8:17 AM PLANT CYTOLOGIST Avni [place] CHEMISTRY HUANIsaias SULEMA Performing Organization Address [facility] Co de Phone Number [facility]# [id number] [address] [place] [address] * (ABNORMAL) C-REACTIVE PROTEIN (07/03/2022 5:44 AM PLANT CYTOLOGIST) CRP 6.3(H) <5.0 mg/L 07/03/2022 9:02 AM PLANT CYTOLOGIST [facility] Blood Venipuncture / Unknown 07/03/2022 5:44 AM PLANT CYTOLOGIST 07/03/2022 8:17 AM PLANT CYTOLOGIST [facility] [place] CHEMISTRY SUSANNAH LEONE Performing Organization Address [facility] Co de Phone Number [facility]# [id number] [address] [place] [address] * MAGNESIUM LEVEL (07/03/2022 5:44 AM PLANT CYTOLOGIST) MAGNESIUM 2.3 1.6 - 2.6 mg/dL 07/03/2022 9:02 AM PLANT CYTOLOGIST [facility] Blood Venipuncture / Unknown 07/03/2022 5:44 AM PLANT CYTOLOGIST 07/03/2022 8:17 AM PLANT CYTOLOGIST Avni Stoner Venessa DMS CHEMISTRY SUSANNAH LEONE [facility]ATORY SERVICES - [facility]# [id number] [address] [place] [address] * (ABNORMAL) COMPREHENSIVE METABOLIC PANEL (07/03/2022 5:44 AM PLANT CYTOLOGIST) SODIUM 137 136 - 145 mmol/L 07/03/2022 9:16 AM [facility] [employer] [facility] - [facility] POTASSIUM 3.4(L) 3.5 - 5.0 mmol/L 07/03/2022 9:16 AM [facility] - [facility] CHLORIDE 96(L) 98 - 107 mmol/L 07/03/2022 9:16 AM [facility] - [facility] CO2 25 22 - 29 mmol/L 07/03/2022 9:16 AM [facility] - [facility] CALCIUM 9.4 8.6 - 10.2 mg/dL 07/03/2022 9:16 AM [facility] - [facility] BUN 46(H) 6 - 20 mg/dL 07/03/2022 9:16 AM [facility] - [facility] CREATININE 8.80(H) 0.67 - 1.17 mg/dL 07/03/2022 9:16 AM [facility] - [facility] GLUCOSE 113(H) 74 - 99 mg/dL 07/03/2022 9:16 AM [facility] - [facility] TOTAL PROTEIN 6.3(L) 6.7 - 8.6 g/dL 07/03/2022 9:16 AM [facility] [facility] ALBUMIN 3.1(L) 3.5 - 5.2 g/dL 07/03/2022 9:16 AM PL[employer] CYT[employer] [facility] BILIRUBIN TOTAL 0.3 0.3 - 1.2 mg/dL 07/03/2022 9:16 AM [facility] ALKALINE PHOSPHATASE 105 40 - 129 U/L 07/03/2022 9:16 AM PLANT CYTOLOGIST [facility] AST 38 <41 U/L 07/03/2022 9:16 AM [facility] [employer] [facility] ALT 38 <42 U/L 07/03/2022 9:16 AM [facility] GFR 7(L) >=60 mL/min/1.7 3 sq meter 07/03/2022 9:16 AM [facility] [employer] [facility] Comment:eGFR calculated with 2020 CKD-EPI equation. Vegetarian diet, extremely high or low muscle mass, and may affect results. Cystatin C with Glomerular Filtration Rate is a suitable alternative for these patients. ANION GAP 16 8 - 16 mmol/L 07/03/2022 9:16 AM [facility] [employer] [facility] Blood Venipuncture / Unknown 07/03/2022 5:44 AM [employer] CY[employer] 07/03/2022 8:17 AM [facility] - 07/03/2022 9:16 AM PLANT CYTOLOGIST Samples containing indocyanine green cause interferences on Total and/or Direct Bilirubin and must not be measured. Avni Clifford [facility] CHEMISTRY SUSANNAH LEONE [facility] [employer] [facility]# [id number] [address] [facility] [place] [address] * (ABNORMAL) CBC WITH DIFFERENTIAL (07/03/2022 5:44 AM PLANT CYTOLOGIST) WBC 3.7(L) 4.0 - 9.8 K/uL 07/03/2022 8:34 AM [facility] [employer] [facility] RBC 2.95(L) 4.50 - 5.40 M/uL 07/03/2022 8:34 AM [facility] [employer] [facility] HEMOGLOBIN 8.8(L) 13.6 - 16.5 g/dL 07/03/2022 8:34 AM [facility] [employer] [facility] HEMATOCRIT 27.7(L) 40.0 - 48.0 % 07/03/2022 8:34 AM [facility] [employer] [facility] MCV 93.9 82.0 - 99.0 fL 07/03/2022 8:34 AM [facility] MCH 29.8 27.2 - 32.6 pg 07/03/2022 8:34 AM PLANT CYTOLOGIST [facility] MCHC 31.8 31.5 - 35.5 g/dL 07/03/2022 8:34 AM PLANT CYTOLOGIST [facility] RDW 16.0(H) 11.5 - 14.5 % 07/03/2022 8:34 AM PLANT CYTOLOGIST [facility] RDW-STDEV 55.0(H) 37.1 - 48.7 fL 07/03/2022 8:34 AM PLANT CYTOLOGIST [facility] PLATELETS 368(H) 140 - 350 K/uL 07/03/2022 8:34 AM PLANT CYTOLOGIST [facility] MPV 9.4 9.3 - 12.4 fL 07/03/2022 8:34 AM PLANT CYT[employer]IST [facility] NEUTROPHILS 40 % 07/03/2022 8:34 AM PLANT CYT[employer]IST [facility] LYMPHOCYTES 37 % 07/03/2022 8:34 AM PL[employer] CY[employer] [facility] MONOCYTES 15 % 07/03/2022 8:34 AM PLANT CYT[employer]IST [facility] EOSINOPHILS 6 % 07/03/2022 8:34 AM PLANT CYTOLOGIST [facility] BASOPHILS 1 % 07/03/2022 8:34 AM PLANT CYT[employer]IST [facility] IMMATURE GRANULOCYTES 1 % 07/03/2022 8:34 AM PLANT CYTOLOGIST [facility] Comment:IG (Immature Granulo cyte) count includes Metamyelocytes, Myelocytes, and Promyelocytes NEUTROPHIL ABSOLUTE 1.47(L) 1.90 - 7.00 K/uL 07/03/2022 8:34 AM PLANT CYT[employer] [facility] LYMPHOCYTE ABSOLUTE 1.35 0.70 - 4.50 K/uL 07/03/2022 8:34 AM PLANT CYT[employer]IST [facility] MONOCYTE ABSOLUTE 0.56 0.10 - 1.30 K/uL 07/03/2022 8:34 AM PLANT CYT[employer]IST [facility] EOSINOPHIL ABSOLUTE 0.21 0.00 - 0.70 K/uL 07/03/2022 8:34 AM PLANT CYTOLOGIST [facility] BASOPHILS ABSOLUTE 0.04 0.00 - 0.20 K/uL 07/03/2022 8:34 AM [employer] [facility] LABORATORY [facility] IMMATURE GRANULOCYTES ABSOLUTE 0.02 0.00 - 0.03 K/uL 07/03/2022 8:34 AM [employer] [facility] LABORATORY [facility] . [facility] Blood Venipuncture / Unknown 07/03/2022 5:44 AM PLANT CYT[employer]IST 07/03/2022 8:17 AM [employer] CY[employer] [facility] HEMATOLOGY ORD ERABLES [facility] CLIA# [id number] [address] [place] [address] * (ABNORMAL) POC GLUCOSE (07/02/2022 7:51 PM PLANT CYTOLOGIST) GLUCOSE POC 346(H) 74 - 99 mg/dL 07/02/2022 7:51 PM [facility] SPECIMEN SOURCE, GLUCOSE POC Whole Blood 07/02/2022 7:[address] [facility] COMMENT, GLU POC Notified RN/MD 07/02/2022 7:51 PM [facility] Blood, whole 07/02/2022 7:51 PM [employer] CY[employer] 07/02/2022 8:13 PM [employer] CY[employer] Srinivas Jon MD POINT OF CARE TESTIN G [facility] CLIA # [id number] [place] [address] * (ABNORMAL) POC GLUCOSE (07/02/2022 4:31 PM PLANT CYTOLOGIST) GLUCOSE POC 292(H) 74 - 99 mg/dL 07/02/2022 4:31 PM [facility] SPECIMEN SOURCE, GLUCOSE POC Whole Blood 07/02/2022 4:31 PM [facility] Blood, whole 07/02/2022 4:31 PM PL[employer] CY[employer]IST 07/02/2022 4:45 PM PL[employer] CY[employer] Srinivas Jon MD POINT OF CARE TESTDUSTIN G [facility] CLIA # [id number] [place] [address] * (ABNORMAL) POC GLUCOSE (07/02/2022 12:06 PM PLANT CYTOLOGIST) GLUCOSE POC 187(H) 74 - 99 mg/dL 07/02/2022 12:[address] [facility] SPECIMEN SOURCE, GLUCOSE POC Whole Blood 07/02/2022 12:[address] [facility] Blood, whole 07/02/2022 12:0 6 PM PLANT CYTOLOGIST 07/02/2022 12:16 PM PLANT CYTOLOGIST Srinivas Jon MD POINT OF CARE TESTDUSTIN Crow Performing Organization Address City/[facility]/ZIP Co de Phone Number [facility] CLIA # [id number] [place] [address] * (ABNORMAL) POC GLUCOSE (07/02/2022 7:37 AM PLANT CYTOLOGIST) GLUCOSE POC 120(H) 74 - 99 mg/dL 07/02/2022 7:[address] [facility] SPECIMEN SOURCE, GLUCOSE POC Whole Blood 07/02/2022 7:[address] [facility] Blood, whole 07/02/2022 7:37 AM PLANT CYTOLOGIST 07/02/2022 7:47 AM PLANT CYTOLOGIST Srinivas Jon MD POINT OF CARE TESTDUSTIN Crow [facility] CLIA # [id number] [place] [address] * (ABNORMAL) POC GLUCOSE (07/01/2022 7:46 PM PLANT CYTOLOGIST) GLUCOSE POC 240(H) 74 - 99 mg/dL 07/01/2022 7:[address] [facility] SPECIMEN SOURCE, GLUCOSE POC Whole Blood 07/01/2022 7:[address] [facility] COMMENT, GLU POC Notified RN/MD 07/01/2022 7:[address] [facility] Blood, whole 07/01/2022 7:46 PM PLANT CYTOLOGIST 07/01/2022 7:57 PM PL[employer] CYTOLOGIST Srinivas Jon MD POINT OF CARE TESTDUSTIN Crow [facility] CLIA # [id number] [place] [address] * (ABNORMAL) POC GLUCOSE (07/01/2022 5:00 PM PLANT CYTOLOGIST) GLUCOSE POC 229(H) 74 - 99 mg/dL 07/01/2022 5:[address] [facility] SPECIMEN SOURCE, GLUCOSE POC Whole Blood 07/01/2022 5:[address] [facility] Blood, whole 07/01/2022 5:00 PM PLANT CYTOLOGIST 07/01/2022 5:09 PM PLANT CYTOLOGIST Srinivas Jon MD POINT OF CARE TESTDUSTIN Crow Performing Organization Address City/[facility]/ZIP Co de Phone Number [facility] CLIA # [id number] [place] [address] * (ABNORMAL) POC GLUCOSE (07/01/2022 12:11 PM PLANT CYTOLOGIST) GLUCOSE POC 205(H) 74 - 99 mg/dL 07/01/2022 12:[address] [facility] SPECIMEN SOURCE, GLUCOSE POC Whole Blood 07/01/2022 12:[address] [facility] Blood, whole 07/01/2022 12:1 1 PM PLANT CYTOLOGIST 07/01/2022 12:23 PM PL[employer] CY[employer] Srinivas Jon MD POINT OF CARE TESTDUSTIN Crow [facility] CLIA # [id number] [place] [address] * (ABNORMAL) POC GLUCOSE (07/01/2022 7:21 AM PLANT CYTOLOGIST) GLUCOSE POC 216(H) 74 - 99 mg/dL 07/01/2022 7:[address] [facility] SPECIMEN SOURCE, GLUCOSE POC Whole Blood 07/01/2022 7:[address] [facility] Blood, whole 07/01/2022 7:21 AM PLANT CYTOLOGIST 07/01/2022 7:32 AM PL[employer] CYTOLOGIST Srinivas Jon MD POINT OF CARE TESTIN G [facility] CLIA # [id number] [place] [address] * (ABNORMAL) URIC ACID (07/01/2022 5:19 AM PLANT CYTOLOGIST) [facility] URIC ACID 8.4(H) 3.4 - 7.0 mg/dL 07/02/2022 11:15 PM [employer] CY[employer] [facility] LABORATORY [facility] Blood Venipuncture / Unknown 07/01/2022 5:19 AM PLANT CYTOLOGIST 07/01/2022 9:45 AM [employer] Jasmin Bradley MD CHEMISTRY ORDERABLES [facility] CLIA# [id number] [address] [facility] [place] [address] * (ABNORMAL) CBC WITH DIFFERENTIAL (07/01/2022 5:19 AM PLANT CYTOLOGIST) Pathologist [facility] WBC 3.5(L) 4.0 - 9.8 K/uL 07/01/2022 10:07 AM [facility] LABORATORY [facility] RBC 2.87(L) 4.50 - 5.40 M/uL 07/01/2022 10:07 AM [employer] [facility] LABORATORY [facility] HEMOGLOBIN 8.7(L) 13.6 - 16.5 g/dL 07/01/2022 10:07 AM [employer] [facility] HEMATOCRIT 26.9(L) 40.0 - 48.0 % 07/01/2022 10:07 AM [employer] [facility] MCV 93.7 82.0 - 99.0 fL 07/01/2022 10:07 AM [employer] [facility] MCH 30.3 27.2 - 32.6 pg 07/01/2022 10:07 AM [employer] [facility] MCHC 32.3 31.5 - 35.5 g/dL 07/01/2022 10:07 AM [employer] [facility] RDW 15.9(H) 11.5 - 14.5 % 07/01/2022 10:07 AM [employer] [facility] RDW-STDEV 55.0(H) 37.1 - 48.7 fL 07/01/2022 10:07 AM [employer] [facility] PLATELETS 382(H) 140 - 350 K/uL 07/01/2022 10:07 AM [employer] [facility] MPV 9.7 9.3 - 12.4 fL 07/01/2022 10:07 AM [facility] [facility] NEUTROPHILS 41 % 07/01/2022 10:07 AM [employer] [facility] LYMPHOCYTES 31 % 07/01/2022 10:07 AM [employer] [facility] MONOCYTES 17 % 07/01/2022 10:07 AM [employer] [facility] EOSINOPHILS 8 % 07/01/2022 10:07 AM [employer] [facility] BASOPHILS 1 % 07/01/2022 10:07 AM [employer] [facility] IMMATURE GRANULOCYTES 1 % 07/01/2022 10:07 AM [employer] [facility] Comment:IG (Immature Granulo cyte) count includes Metamyelocytes, Myelocytes, and Promyelocytes NEUTROPHIL ABSOLUTE 1.44(L) 1.90 - 7.00 K/uL 07/01/2022 10:07 AM [employer] [facility] LYMPHOCYTE ABSOLUTE 1.11 0.70 - 4.50 K/uL 07/01/2022 10:07 AM PLANT CY[employer] [facility] MONOCYTE ABSOLUTE 0.61 0.10 - 1.30 K/uL 07/01/2022 10:07 AM PLANT CYTOLOGIST [facility] EOSINOPHIL ABSOLUTE 0.29 0.00 - 0.70 K/uL 07/01/2022 10:07 AM PLANT CY[employer]IST [facility] BASOPHILS ABSOLUTE 0.05 0.00 - 0.20 K/uL 07/01/2022 10:07 AM PLANT CYT[employer]IST [facility] IMMATURE GRANULOCYTES ABSOLUTE 0.04(H) 0.00 - 0.03 K/uL 07/01/2022 10:07 AM [facility] Blood Venipuncture / Unknown 07/01/2022 5:19 AM PLANT CY[employer]OLOGIST 07/01/2022 9:45 AM [employer] Jasmin Bradley MD HEMATOLOGY ORDERABLE S [facility]# [id number] [address] [place] [address] [facility] [place] [address] * (ABNORMAL) RENAL FUNCTION PANEL (07/01/2022 5:19 AM PL[employer] CY[employer]OLOGIST) SODIUM 131(L) 136 - 145 mmol/L 07/01/2022 10:19 AM [facility] - . [facility] POTASSIUM 3.3(L) 3.5 - 5.0 mmol/L 07/01/2022 10:19 AM PLANT CYT[employer]IST [facility] [place] CHLORIDE 91(L) 98 - 107 mmol/L 07/01/2022 10:19 AM PLANT CYT[employer]IST [facility] CO2 26 22 - 29 mmol/L 07/01/2022 10:19 AM [facility] CALCIUM 9.0 8.6 - 10.2 mg/dL 07/01/2022 10:19 AM [facility] BUN 48(H) 6 - 20 mg/dL 07/01/2022 10:19 AM [facility] CREATININE 9.56(H) 0.67 - 1.17 mg/dL 07/01/2022 10:19 AM [facility] GLUCOSE 273(H) 74 - 99 mg/dL 07/01/2022 10:19 AM [facility] ALBUMIN 2.9(L) 3.5 - 5.2 g/dL 07/01/2022 10:19 AM [facility] PHOSPHORUS 5.3(H) 2.5 - 4.5 mg/dL 07/01/2022 10:19 AM [facility] GFR 6(L) >=60 mL/min/1.7 3 sq meter 07/01/2022 10:19 AM [facility] Comment:eGFR calculated with 2020 CKD-EPI equation. Vegetarian diet, extremely high or low muscle mass, and may affect results. Cystatin C with Glomerular Filtration Rate is a suitable alternative for these patients. ANION GAP 14 8 - 16 mmol/L 07/01/2022 10:19 AM [facility] Blood Venipuncture / Unknown 07/01/2022 5:19 AM [employer] 07/01/2022 9:45 AM [employer] Jasmin Bradley MD CHEMISTRY ORDERABLES [facility]# [id number] [address] [facility] [address] [place] [address] * (ABNORMAL) POC GLUCOSE (06/30/2022 8:10 PM PLANT CYTOLOGIST) GLUCOSE POC 232(H) 74 - 99 mg/dL 06/30/2022 8:10 PM [facility] SPECIMEN SOURCE, GLUCOSE POC Whole Blood 06/30/2022 8:10 PM [facility] COMMENT, GLU POC Notified RN/MD 06/30/2022 8:10 PM [facility] Blood, whole 06/30/2022 8:10 PM [employer] CY[employer]IST 06/30/2022 8:25 PM [employer] Srinivas Jon MD POINT OF CARE TESTIN G Performing Organization Address City/[facility]/ZIP Co de Phone Number [facility] CLIA # [id number] [place] [address] * (ABNORMAL) POC GLUCOSE (06/30/2022 4:31 PM PLANT CYTOLOGIST) GLUCOSE POC 260(H) 74 - 99 mg/dL 06/30/2022 4:[address] [facility] SPECIMEN SOURCE, GLUCOSE POC Whole Blood 06/30/2022 4:[address] [facility] Blood, whole 06/30/2022 4:31 PM PLANT CYT[employer]IST 06/30/2022 5:11 PM PLANT CYTOLOGIST Srinivas Jon MD POINT OF CARE TESTIN G Performing Organization Address [facility]/ZIP Co de Phone Number [facility] CLIA # [id number] [place] [address] * (ABNORMAL) URINALYSIS WITH REFLEX MICROSCOPIC (06/30/2022 2:55 PM PLANT CYTOLOGIST) COLOR UA Yellow Pale to Dark Yellow 06/30/2022 4:08 PM PLANT CYTOLOGIST [facility] - [facility] CLARITY UA Clear Clear 06/30/2022 4:08 PM PLANT CYTOLOGIST [facility] - [facility] SPECIFIC GRAVITY UA 1.024 1.003 - 1.035 06/30/2022 4:08 PM PLANT CYTOLOGIST [facility] - [facility] PH UA 5.0 5.0 - 8.0 06/30/2022 4:08 PM PLANT CYTOLOGIST [facility] - . [facility] LEUKOCYTE ESTERASE UA Negative Negative 06/30/2022 4:08 PM PLANT CYTOLOGIST [facility] - . [facility] NITRITE UA Negative Negative 06/30/2022 4:08 PM PLANT CYTOLOGIST [facility] - . [facility] PROTEIN UA Negative Negative 06/30/2022 4:08 PM PLANT CYTOLOGIST [facility] - . [facility] GLUCOSE UA 2+(A) Negative 06/30/2022 4:08 PM PLANT CYTOLOGIST [facility] - . [facility] KETONES UA Negative Negative 06/30/2022 4:08 PM PLANT CYTOLOGIST [facility] - [facility] UROBILINOGEN UA Normal <2.0 mg/dL 4:08 PM PLANT CYTOLOGIST [facility] LABORATORY [facility] BILIRUBIN UA Negative Negative 06/30/2022 4:08 PM [facility]ANT CYT[employer]IST [facility] BLOOD UA Negative Negative 06/30/2022 4:08 PM PLANT CYTOLOGIST [facility] LABORATORY [facility] Urine URINE SPECIMEN OBTAINED BY CLEAN CATCH PROCEDURE / Unknown Collection / Unknown 06/30/2022 2:55 PM PLANT CYTOLOGIST 06/30/2022 3:45 PM PLANT CYTOLOGIST [facility] [place] URINE ORDERABL ES [id number] [address] [place] [address] * (ABNORMAL) URINE CULTURE (06/30/2022 2:55 PM PLANT CYTOLOGIST) CULTURE STAPHYLOCOCCUS EPIDERMIDIS(A) LARISA MCG/ML 07/02/2022 12:31 PM PLANT CY[employer]IST [facility] LABORATORY [facility] Comment:No further workup in dicated. Urine URINE SPECIMEN OBTAINED BY CLEAN CATCH PROCEDURE / Unknown Collection / Unknown 06/30/2022 2:55 PM PLANT CYTOLOGIST 06/30/2022 3:45 PM PLANT CYTOLOGIST [facility] [place] MICROBIOLOGY - GENERAL ORDERABLES [facility] [id number] [address] [place] [address] * (ABNORMAL) POC GLUCOSE (06/30/2022 11:42 AM PLANT CYTOLOGIST) GLUCOSE POC 213(H) 74 - 99 mg/dL 06/30/2022 11:[address] [facility] SPECIMEN SOURCE, GLUCOSE POC Whole Blood 06/30/2022 11:[address] [facility] Blood, whole 06/30/2022 11:4 2 AM PLANT CYTOLOGIST 06/30/2022 11:55 AM [employer] CY[employer] Srinivas Jon MD POINT OF CARE TESTIN G [facility] CLIA # [id number] [place] [address] * (ABNORMAL) POC GLUCOSE (06/30/2022 7:03 AM PLANT CYTOLOGIST) GLUCOSE POC 216(H) 74 - 99 mg/dL 06/30/2022 7:[address] [facility] SPECIMEN SOURCE, GLUCOSE POC Whole Blood 06/30/2022 7:[address] [facility] Blood, whole 06/30/2022 7:03 AM PLANT CY[employer]IST 06/30/2022 7:23 AM [employer] CY[employer] Srinivas Jon MD POINT OF CARE TESTDUSTIN Crow Performing Organization Address [facility] Co de Phone Number [facility] CLIA # [id number] [place] [address] * HEPATITIS B SURFACE ANTIGEN (06/30/2022 5:46 AM PLANT CYTOLOGIST) Pathologist [facility] HEPATITIS B SURFACE AG NON-REACT CARA Non-react cara 06/30/2022 11:26 AM [employer] [facility] LABORATORY [facility] Comment:A non-reactive test result does not exclude the possibility of exposure to or infection with hepatitis B. Blood Venipuncture / Unknown 06/30/2022 5:46 AM PLANT CYT[employer]IST 06/30/2022 10:40 AM [employer] CY[employer] Jasmin Bradley MD CHEMISTRY ORDERABLES [facility] [employer] [facility] CLIA# [id number] [address] [place] [address] * HEPATITIS B SURFACE AB, QUANT (06/30/2022 5:46 AM PLANT CYTOLOGIST) Pathologist [facility] HEPATITIS B SURF AB,QN 188.5 mlU/mL 06/30/2022 11:27 AM [employer] [facility] LABORATORY [facility] HEPATITIS B SURFACE AB INTERP Reactive See Interp 06/30/2022 11:27 AM [facility] [employer] SERVICES [facility] Comment:Patient is considere d to be immune to infection with HBV. Blood Venipuncture / Unknown 06/30/2022 5:46 AM PLANT CYTOLOGIST 06/30/2022 10:40 AM [employer] Jasmin Bradley MD CHEMISTRY ORDERABLES [facility] [employer] [facility] CLIA# [id number] [address] [place] [address] * (ABNORMAL) COMPREHENSIVE METABOLIC PANEL (06/30/2022 5:46 AM PLANT CYTOLOGIST) SODIUM 133(L) 136 - 145 mmol/L 06/30/2022 11:18 AM [facility] [employer] [facility] - . [facility] POTASSIUM 3.3(L) 3.5 - 5.0 mmol/L 06/30/2022 11:18 AM [facility] [employer] [facility] CHLORIDE 90(L) 98 - 107 mmol/L 06/30/2022 11:18 AM [facility] [employer] [facility] CO2 25 22 - 29 mmol/L 06/30/2022 11:18 AM [facility] [employer] [facility] - . [facility] CALCIUM 9.1 8.6 - 10.2 mg/dL 06/30/2022 11:18 AM [facility] LAB[facility] BUN 47(H) 6 - 20 mg/dL 06/30/2022 11:18 AM [facility] [employer] . [facility] CREATININE 9.78(H) 0.67 - 1.17 mg/dL 06/30/2022 11:18 AM [facility] [employer] [facility] [place] GLUCOSE 241(H) 74 - 99 mg/dL 06/30/2022 11:18 AM [facility] TOTAL PROTEIN 6.6(L) 6.7 - 8.6 g/dL 06/30/2022 11:18 AM [facility] [employer] [facility] . [facility] ALBUMIN 3.1(L) 3.5 - 5.2 g/dL 06/30/2022 11:18 AM [facility] BILIRUBIN TOTAL 0.4 0.3 - 1.2 mg/dL 06/30/2022 11:18 AM [facility] ALKALINE PHOSPHATASE 106 40 - 129 U/L 06/30/2022 11:18 AM [facility] AST 23 <41 U/L 06/30/2022 11:18 AM [facility] ALT 31 <42 U/L 06/30/2022 11:18 AM [facility] GFR 6(L) >=60 mL/min/1.7 3 sq meter 06/30/2022 11:18 AM [facility] Comment:eGFR calculated with 2020 CKD-EPI equation. Vegetarian diet, extremely high or low muscle mass, and may affect results. Cystatin C with Glomerular Filtration Rate is a suitable alternative for these patients. ANION GAP 18(H) 8 - 16 mmol/L 06/30/2022 11:18 AM [facility] Blood Venipuncture / Unknown 06/30/2022 5:46 AM [facility] 06/30/2022 10:40 AM [facility] - 06/30/2022 11:18 AM [facility] [facility] Samples containing indocyanine green cause interferences on Total and/or Direct Bilirubin and must not be measured. Avni Clifford [facility] CHEMISTRY SUSANNAH LEONE Performing Organization Address City/State/[facility] Co de Phone Number [facility]# [id number] [address] [facility] [place] [address] * (ABNORMAL) CBC WITH DIFFERENTIAL (06/30/2022 5:46 AM [facility]) WBC 3.7(L) 4.0 - 9.8 K/uL 06/30/2022 10:49 AM [facility] RBC 2.76(L) 4.50 - 5.40 M/uL 06/30/2022 10:49 AM [facility] HEMOGLOBIN 8.4(L) 13.6 - 16.5 g/dL 06/30/2022 10:49 AM [facility] HEMATOCRIT 25.6(L) 40.0 - 48.0 % 06/30/2022 10:49 AM [facility] MCV 92.8 82.0 - 99.0 fL 06/30/2022 10:49 AM [facility] [facility] MCH 30.4 27.2 - 32.6 pg 06/30/2022 10:49 AM [facility] [facility] MCHC 32.8 31.5 - 35.5 g/dL 06/30/2022 10:49 AM [facility] [facility] RDW 16.4(H) 11.5 - 14.5 % 06/30/2022 10:49 AM [facility] RDW-STDEV 54.4(H) 37.1 - 48.7 fL 06/30/2022 10:49 AM [facility] [facility] PLATELETS 390(H) 140 - 350 K/uL 06/30/2022 10:49 AM [facility] [facility] MPV 10.0 9.3 - 12.4 fL 06/30/2022 10:49 AM [facility] NEUTROPHILS 43 % 06/30/2022 10:49 AM [facility] LYMPHOCYTES 32 % 06/30/2022 10:49 AM [facility] [facility] MONOCYTES 15 % 06/30/2022 10:49 AM [employer] [facility] EOSINOPHILS 8 % 06/30/2022 10:49 AM [employer] [facility] BASOPHILS 1 % 06/30/2022 10:49 AM [employer] [facility] IMMATURE GRANULOCYTES 1 % 06/30/2022 10:49 AM [employer] [facility] Comment:IG (Immature Granulo cyte) count includes Metamyelocytes, Myelocytes, and Promyelocytes NEUTROPHIL ABSOLUTE 1.57(L) 1.90 - 7.00 K/uL 06/30/2022 10:49 AM PLANT [employer] [facility] LYMPHOCYTE ABSOLUTE 1.16 0.70 - 4.50 K/uL 06/30/2022 10:49 AM PLANT CYTOLOGIST [facility] LABORATORY SERVICES - [facility] MONOCYTE ABSOLUTE 0.56 0.10 - 1.30 K/uL 06/30/2022 10:49 AM PLANT CYTOLOGIST [facility] LABORATORY [facility] EOSINOPHIL ABSOLUTE 0.29 0.00 - 0.70 K/uL 06/30/2022 10:49 AM PLANT CYTOLOGIST [facility] LABORATORY [facility] BASOPHILS ABSOLUTE 0.03 0.00 - 0.20 K/uL 06/30/2022 10:49 AM PLANT CYTOLOGIST [facility] LABORATORY [facility] IMMATURE GRANULOCYTES ABSOLUTE 0.05(H) 0.00 - 0.03 K/uL 06/30/2022 10:49 AM [facility] LABOR[facility]ORY [facility] Blood Venipuncture / Unknown 06/30/2022 5:46 AM PLANT CY[employer]IST 06/30/2022 10:40 AM PLANT CYTOLOGIST Avni Clifford [facility] HEMATOLOGY ORD ERABLES [facility] [employer] [facility] CLIA# [id number] 5 [facility] [address] * (ABNORMAL) VITAMIN D 25 HYDROXY (06/30/2022 5:46 AM PLANT CYTOLOGIST) Pathologist [facility] VITAMIN D TOTAL (25OH) 17(L) 30 - 100 ng/mL 06/30/2022 11:29 AM PLANT CYT[employer]IST [facility] [employer] [facility] Blood Venipuncture / Unknown 06/30/2022 5:46 AM PLANT CYTOLOGIST 06/30/2022 10:40 AM PLANT CYTOLOGIST Narrative [facility] LABORATORY [facility] - 06/30/2022 11:29 AM PLANT CYTOLOGIST Interpretive Data Chart: Deficient: ? 0 - 20 ng/mL Insufficient: ?21 - 29 ng/mL Sufficient: ?30 - 100 ng/mL Increased Risk of Hypercalciuria: ??>100 ng/ml Toxic: ? >150 ng/ml Avni Stoner [employer] CHEMISTRY SUSANNAH LEONE Performing Organization Address City/[facility]/ZIP Co de Phone Number [facility] [employer] [facility] CLIA# [id number] [address] [place] [address] * VITAMIN B12 LEVEL (06/30/2022 5:46 AM PLANT CYTOLOGIST) VITAMIN B12 1,178 232 - 1,245 pg/mL 06/30/2022 11:29 AM PLANT CYTOLOGIST [facility] [employer] [facility] Comment:It has been reported that between 5 to 10% of patients with values between 200 and 400 pg/mL may experience neuropsychiatric and hematologic abnormalities due to occult B12 deficiency. Less than 1% of patients with values above 400 pg/mL will have symptoms. Blood Venipuncture / Unknown 06/30/2022 5:46 AM PLANT CYTOLOGIST 06/30/2022 10:40 AM PLANT CYTOLOGIST Avni Stoner [employer] MATTHEW LEONE Performing Organization Address [facility] Co de Phone Number [facility] CLAL# [id number] [address] [place] [address] * TSH REFLEXIVE (06/30/2022 5:46 AM PLANT CYTOLOGIST) TSH 3.75 0.27 - 4.20 uIU/mL 06/30/2022 11:22 AM PLANT CYTOLOGIST [facility] [employer] [facility] Blood Venipuncture / Unknown 06/30/2022 5:46 AM PLANT CYTOLOGIST 06/30/2022 10:40 AM PLANT CYTOLOGIST Avni Clifford [employer] CHEMISTR[employer] SUSANNAH LEONE Performing Organization Address City/[facility]/ZIP Co de Phone Number [facility] CLIA# [id number] [address] [place] [address] * (ABNORMAL) POC GLUCOSE (06/29/2022 9:52 PM PLANT CYTOLOGIST) GLUCOSE POC 271(H) 74 - 99 mg/dL 06/29/2022 9:[address] [facility] SPECIMEN SOURCE, GLUCOSE POC Whole Blood 06/29/2022 9:[address] [facility] Blood, whole 06/29/2022 9:52 PM PLANT CYTOLOGIST 06/29/2022 10:00 PM PLANT CYTOLOGIST Srinivas Jon MD POINT OF CARE TESTDUSTIN Crow [facility] CLIA # [id number] [place] [address] * (ABNORMAL) POC GLUCOSE (06/29/2022 4:28 PM PLANT CYTOLOGIST) GLUCOSE POC 265(H) 74 - 99 mg/dL 06/29/2022 4:[address] [facility] SPECIMEN SOURCE, GLUCOSE POC Whole Blood 06/29/2022 4:[address] [facility] Blood, whole 06/29/2022 4:28 PM PLANT CYTOLOGIST 06/29/2022 4:47 PM PLANT CYTOLOGIST Srinivas Jon MD POINT OF CARE TESTDUSTIN Crow [facility] CLIA # [id number] [address] [place] [address] documented in this encounter Visit Diagnoses Diagnosis Acute on chronic HFrEF (heart failure with reduced ejection fraction)- Primary Chronic embolism and thrombosis of unspecified deep veins of right lower extremity Anemia of chronic renal failure, stage 4 (severe) Hyperlipidemia Other and unspecified hyperlipidemia HTN (hypertension) Unspecified essential hypertension Diabetes mellitus Type II or unspecified type diabetes mellitus without mention of complication, not stated as uncontrolled BEN (obstructive sleep apnea) Obstructive sleep apnea (adult) (pediatric) Gout Gout, unspecified NSTEMI (non-ST elevated myocardial infarction) Acute myocardial infarction, subendocardial infarction, episode of care unspecified A-fib Atrial fibrillation CAD (coronary atherosclerotic disease) Coronary atherosclerosis of unspecified type of vessel, [place] or graft Hyperparathyroidism Hyperparathyroidism, unspecified Congestive heart failure Congestive heart failure, unspecified Hypertensive kidney disease with end-stage renal disease Unspecified hypertensive kidney disease with chronic kidney disease stage V or end stage renal disease ESRD (end stage renal disease) End stage renal disease Diabetic peripheral neuropathy Type II or unspecified type diabetes mellitus with neurological manifestations, not stated as uncontrolled Ketoacidosis due to type 1 diabetes mellitus Stage 5 chronic kidney disease Right upper quadrant pain Abdominal pain, right upper quadrant Proliferative diabetic retinopathy associated with type 2 diabetes mellitus Type II or unspecified type diabetes mellitus with ophthalmic manifestations, not stated as uncontrolled Pre-transplant evaluation for kidney transplant History of coronary artery stent placement History of deep vein thrombosis Personal history of venous thrombosis and embolism Hypersomnia Hypersomnia, unspecified Gastritis Unspecified gastritis and gastroduodenitis without mention of hemorrhage Gastroesophageal reflux disease without esophagitis Esophageal reflux Dystrophia unguium Other specified disease of nail Dysphagia Dysphagia, unspecified Cardiogenic shock Anemia in chronic kidney disease Abnormal cardiovascular stress test Other nonspecific abnormal cardiovascular system function study Acute hypoxemic respiratory failure documented in this encounter Administered Medications Inactive Administered Medications - up to 3 most recent administrations Medication Order MAR Action Action Date Dose Rate Site acetaminophen (TYLENOL) tablet 650 mg 650 mg, Oral, EVERY 6 HOURS PRN, Starting on Mon06/29/22 at 1448, Until Mon06/29/22 at 2147, Other (See Comment), See admin instructions, Routine Given 06/29/2022 4:57 PM PLANT CY[employer]OLOGIST 650 mg acetaminophen (TYLENOL) tablet 650 mg 650 mg, Oral, EVERY 6 HOURS PRN, Starting on Mon06/29/22 at 2146, Until Mon07/08/22 at 1625, Other (See Comment), Pain, Moderate, Pain, Mild, See admin instructions, Routine Given 06/30/2022 8:01 AM PLANT CYTOLOGIST 650 mg aspirin (JOSEPH CHEWABLE) chewable tablet 81 mg 81 mg, Oral, DAILY, First dose (after last modification) on Gregoria 06/30/22 at 0900, Until Discontinued Given 07/02/2022 7:55 AM PLANT CYTOLOGIST 81 mg Given 07/01/2022 9:00 AM PLANT CYT[employer]IST 81 mg Given 06/30/2022 8:01 AM PLANT CY[employer]IST 81 mg aspirin (ECOTRIN EC) tablet 81 mg 81 mg, Oral, DAILY, First dose on Brady 07/03/22 at 0900, Until Discontinued, Routine Given 07/08/2022 7:28 AM PLANT CYTOLOGIST 81 mg Given 07/07/2022 8:42 AM PLANT CYTOLOGIST 81 mg Given 07/06/2022 7:36 AM PLANT CYTOLOGIST 81 mg atorvastatin (LIPITOR) tablet 80 mg 80 mg, Oral, DAILY, First dose (after last modification) on [facility] 06/30/22 at 0900, Until Discontinued Given 07/08/2022 7:28 AM PLANT CYTOLOGIST 80 mg Given 07/07/2022 8:43 AM PLANT CYTOLOGIST 80 mg Given 07/06/2022 7:37 AM PLANT CYTOLOGIST 80 mg calcitRIOL (ROCALTROL) capsule 0.25 mcg 0.25 mcg, Oral, DAILY, First dose (after last modification) on [facility] 06/30/22 at 0900, Until Discontinued Given 07/08/2022 7:27 AM PLANT CYTOLOGIST 0.25 mcg Given 07/07/2022 8:43 AM PLANT CYTOLOGIST 0.25 mcg Given 07/06/2022 7:35 AM PLANT CYTOLOGIST 0.25 mcg calcium acetate (CALPHRON) tablet 667 mg 667 mg, Oral, THREE TIMES DAILY BEFORE MEALS, First dose (after last modification) on Mon06/29/22 at 1630, Until Discontinued Given 07/08/2022 1:18 PM PLANT CYTOLOGIST 667 mg Given 07/08/2022 7:30 AM PLANT CYTOLOGIST 667 mg Given 07/07/2022 6:12 PM PLANT CYTOLOGIST 667 mg cetirizine (ZyrTEC) tablet 5 mg 5 mg, Oral, DAILY PRN, Starting on Mon06/29/22 at 1448, Until Mon07/08/22 at 1625, Congestion, Allergies, Rhinitis, Routine Given 06/30/2022 8:01 AM PLANT CYTOLOGIST 5 mg cloNIDine ([id number]) 0.1 mg/24 hr transdermal patch 1 Patch 1 Patch, Transdermal, EVERY 7 DAYS, First dose on [facility] 06/30/22 at 0600, Until Discontinued, Routine Applied 06/30/2022 5:47 AM PLANT CYTOLOGIST 1 Patch Arm, Right Upper clopidogreL (PLAVIX) tablet 75 mg 75 mg, Oral, DAILY, First dose (after last modification) on [facility] 06/30/22 at 0900, Until Discontinued Given 07/08/2022 7:28 AM PLANT CYTOLOGIST 75 mg Given 07/07/2022 8:43 AM PLANT CYTOLOGIST 75 mg Given 07/06/2022 7:35 AM PLANT CYTOLOGIST 75 mg colchicine (COLCRYS) tablet 0.6 mg 0.6 mg, Oral, EVERY 48 HOURS, First dose on [facility] 06/30/22 at 0900, Until Discontinued, Routine Given 07/08/2022 7:28 AM PLANT CYTOLOGIST 0.6 mg Given 07/06/2022 7:35 AM PLANT CYTOLOGIST 0.6 mg Given 07/04/2022 8:26 AM PLANT CYTOLOGIST 0.6 mg darbepoetin genia (ARANESP) 100 mcg/0.5 mL injection 100 mcg 100 mcg, subCUT, EVERY 7 DAYS, First dose on Mon07/03/22 at 0900, Until Discontinued, Routine, Reason for treatment with Epoetin/Darbepoetin: Anemia of Chronic Kidney Disease (on dialysis) Given 07/03/2022 10:05 AM PLANT CYTOLOGIST 100 mcg Arm, Left Upper doxycycline monohydrate (MONODOX) capsule 50 mg 50 mg, Oral, EVERY 12 HOURS (BlD), First dose on Mon06/29/22 at 2100, Until Discontinued, Routine, Antibiotic Indication: Intra-abdominal infection / Fecal Contamination, Is sepsis suspected? Unlikely Given 07/07/2022 8:43 AM PLANT CYTOLOGIST 50 mg Given 07/06/2022 8:18 PM PLANT CYTOLOGIST 50 mg Given 07/06/2022 7:36 AM PLANT CYTOLOGIST 50 mg doxycycline monohydrate (MONODOX) capsule 50 mg 50 mg, Oral, EVERY 12 HOURS (BlD), 5 doses, First dose (after last modification) on [facility] 07/07/22 at 2100, Last dose on 07/09/22 at 2100, Routine, Antibiotic Indication: Intra-abdominal infection / Fecal Contamination, Is sepsis suspected? Unlikely Given 07/08/2022 7:29 AM PLANT CYTOLOGIST 50 mg Given 07/07/2022 9:41 PM PLANT CYTOLOGIST 50 mg ezetimibe (ZETIA) tablet 10 mg 10 mg, Oral, DAILY, First dose on [place] 06/30/22 at 0900, Until Discontinued, Routine Given 07/08/2022 7:28 AM PLANT CYTOLOGIST 10 mg Given 07/07/2022 8:42 AM PLANT CYTOLOGIST 10 mg Given 07/06/2022 7:37 AM PLANT CYTOLOGIST 10 mg folic acid-Vit B6-Vit B12 (FOLTX) per tablet 1 Tablet 1 Tablet, Oral, DAILY, First dose on Mon06/29/22 at 1500, Until Discontinued, Routine Given 07/08/2022 7:29 AM PLANT CYTOLOGIST 1 Tablet Given 07/07/2022 8:43 AM PLANT CYTOLOGIST 1 Tablet Given 07/06/2022 7:36 AM PLANT CYTOLOGIST 1 Tablet furosemide (LASIX) tablet 40 mg 40 mg, Oral, TWO TIMES DAILY, 7 HOURS APART, First dose (after last modification) on Mon07/04/22 at 1500, Until Discontinued, Routine Given 07/04/2022 4:0 0 PM PLANT CYTOLOGIST 40 mg furosemide (LASIX) tablet 80 mg 80 mg, Oral, TWO TIMES DAILY, 7 HOURS APART, First dose on Mon06/29/22 at 1500, Until Discontinued, Routine Given 07/04/2022 8:26 AM PLANT CYTOLOGIST 80 mg Given 07/03/2022 3:50 PM PLANT CYTOLOGIST 80 mg Given 07/03/2022 7:47 AM PLANT CYTOLOGIST 80 mg furosemide (LASIX) tablet 80 mg 80 mg, Oral, DAILY, First dose (after last modification) on Mon07/05/22 at 0900, Until Discontinued, Routine Given 07/08/2022 7:29 AM PLANT CYTOLOGIST 80 mg Given 07/07/2022 8:42 AM PLANT CYTOLOGIST 80 mg Given 07/06/2022 7:36 AM PLANT CYTOLOGIST 80 mg gentamicin (GARAMYCIN) 0.1 % topical ointment Topical, DAILY, First dose (after last modification) on Mon06/30/22 at 0900, Until Discontinued Given 07/04/2022 9:00 AM PLANT CYTOLOGIST Other (Comment) Given 07/01/2022 5:00 PM PLANT CYTOLOGIST Ab dominal Tissue Given 06/30/2022 9:00 AM PLANT CYTOLOGIST Ot her (Comment) heparin injection 5,000 Units 5,000 Units, subCUT, EVERY 8 HOURS, First dose (after last modification) on Mon06/29/22 at 2100, Until Discontinued Given 07/08/2022 5:00 AM PLANT CYTOLOGIST 5,000 Units Abdomen, Left Lower Quadrant Given 07/07/2022 9:41 PM PLANT CYTOLOGIST 5,000 Units A bdomen, Left Lower Quadrant Given 07/07/2022 3:52 PM PLANT CYTOLOGIST 5,000 Units A bdominal Tissue HYDROcodone-acetaminophen (NORCO) 5-325 mg per tablet 1 Tablet 1 Tablet, Oral, EVERY 6 HOURS PRN, Starting on Mon06/29/22 at 2147, Until Mon07/08/22 at 1625, Pain (See admin instructions), Pain, Severe, Routine Given 07/06/2022 8:17 PM PLANT CYTOLOGIST 1 Tablet Given 07/05/2022 8:13 PM PLANT CYTOLOGIST 1 Tablet Given 07/04/2022 4:00 PM PLANT CYTOLOGIST 1 Tablet insulin aspart pump basal (NovoLOG) 100 unit/mL infusion subCUT, THREE TIMES DAILY, First dose on Mon06/29/22 at 2001, Until Discontinued, Routine, At rehab the patient must supply own pump insulin Acknowledged 07/08/2022 8:01 AM PLANT CYTOLOGIST 1.7 Units/hr Abdomen, Left Upper Quadrant Acknowledged 07/08/2022 3:01 AM PLANT CYTOLOGIST 5.1 Units/hr Abdomen, Left Lower Quadrant Acknowledged 07/07/2022 8:01 PM PLANT CYTOLOGIST 5.8 Units/hr Abdomen, Left Lower Quadrant insulin lispro (HumaLOG) variable dose injection subCUT, FOUR TIMES DAILY WITH MEALS AND AT BEDTIME, First dose on Mon06/29/22 at 1700, Until Discontinued, Routine Given 07/07/2022 5:00 PM PLANT CYTOLOGIST 6.6 Units Abdom inal Tissue Given 07/03/2022 4:51 PM PLANT CYTOLOGIST 7.2 Units Ab domen, Left Upper Quadrant Given 07/03/2022 12:16 PM PLANT CYTOLOGIST 10.35 Units Abdomen, Left Lower Quadrant isosorbide mononitrate (IMDUR) SR 24 hour tablet 30 mg 30 mg, Oral, DAILY, First dose (after last modification) on Mon06/30/22 at 0900, Until Discontinued Given 07/08/2022 7:30 AM PLANT CYTOLOGIST 30 mg Given 07/07/2022 8:43 AM PLANT CYTOLOGIST 30 mg Given 07/06/2022 7:34 AM PLANT CYTOLOGIST 30 mg losartan (COZAAR) tablet 12.5 mg 12.5 mg, Oral, DAILY, First dose (after last modification) on Mon06/30/22 at 0900, Until Discontinued, On hold since Mon06/30/2022 at 1114 until manually unheld Given 06/30/2022 8:01 AM PLANT CYTOLOGIST 12.5 mg melatonin tablet 6 mg 6 mg, Oral, DAILY AT BEDTIME, First dose on Mon06/29/22 at 2100, Until Discontinued, Routine Given 07/07/2022 9:41 PM PLANT CYTOLOGIST 6 mg Given 07/06/2022 8:18 PM PLANT CYTOLOGIST 6 mg Given 07/05/2022 8:14 PM PLANT CYTOLOGIST 6 mg metoprolol tartrate (LOPRESSOR) tablet 12.5 mg 12.5 mg, Oral, TWO TIMES DAILY, First dose (after last modification) on Mon07/04/22 at 2100, Until Discontinued Given 07/08/2022 7:29 AM PLANT CYTOLOGIST 12.5 mg Given 07/07/2022 9:45 PM PLANT CYTOLOGIST 12.5 mg Given 07/07/2022 8:43 AM PLANT CYTOLOGIST 12.5 mg metoprolol tartrate (LOPRESSOR) tablet 25 mg 25 mg, Oral, TWO TIMES DAILY, First dose (after last modification) on Mon06/29/22 at 2100, Until Discontinued Given 07/04/2022 8:26 AM PLANT CYTOLOGIST 25 mg Given 07/03/2022 8:11 PM PLANT CYTOLOGIST 25 mg Given 07/03/2022 7:47 AM PLANT CYTOLOGIST 25 mg mineral oil-white petrolatum-ceresin (EUCERIN) topical cream Topical, DAILY, First dose on Mon07/05/22 at 1115, Until Discontinued, Routine Given 07/08/2022 7:36 AM PLANT CYTOLOGIST Arm, Left Given 07/07/2022 9:00 AM PLANT CYTOLOGIST Ab domen, Right Lower Quadrant Given 07/06/2022 12:34 PM PLANT CYTOLOGIST A rm, Left New Admission Meds - retrieve upon admission 1. Remove admission medications for this patient from the Comp 1 [employer] machine on evening of admission 2. Acknowledge this order on the MAR (only after meds have been removed from [employer]), See Admin Instructions, EVERY 4 HOURS, 1 dose, First dose on Mon06/29/22 at 1600 Given 06/29/2022 4:00 PM PLANT CYTOLOGIST Other (Comment) pantoprazole (PROTONIX) tablet 40 mg 40 mg, Oral, DAILY, First dose (after last modification) on [place] 06/30/22 at 0600, Until Discontinued Given 07/08/2022 5:59 AM PLANT CYTOLOGIST 40 mg Given 07/07/2022 6:00 AM PLANT CYTOLOGIST 40 mg Given 07/06/2022 7:08 AM PLANT CYTOLOGIST 40 mg peg [id number] 1-0.2-0.2 % ophthalmic solution 1 Drop 1 Drop, Both Eyes, FOUR TIMES DAILY, First dose (after last modification) on Mon06/29/22 at 1800, Until Discontinued Given 07/08/2022 1:18 PM PLANT CYTOLOGIST 1 Drop Given 07/08/2022 7:27 AM PLANT CYTOLOGIST 1 Drop Given 07/07/2022 9:41 PM PLANT CYTOLOGIST 1 Drop potassium chloride (KLOR-CON) SR tablet 20 mEq 20 mEq, Oral, DAILY WITH BREAKFAST, First dose on Mon07/03/22 at 0800, Until Discontinued, Routine Given 07/04/2022 8:26 AM PLANT CYTOLOGIST 20 mEq Given 07/03/2022 7:46 AM PLANT CYTOLOGIST 20 mEq potassium chloride (KLOR-CON) SR tablet 40 mEq 40 mEq, Oral, ONE TIME ONLY, 1 dose, On Mon07/01/22 at 1100, Routine Given 07/01/2022 11:00 AM PLANT CYTOLOGIST 40 mEq potassium chloride (KLOR-CON) SR tablet 40 mEq 40 mEq, Oral, ONE TIME ONLY, 1 dose, On Mon07/02/22 at 2230, Routine Given 07/03/2022 5:33 AM PLANT CYTOLOGIST 40 mEq ranolazine ER (RANEXA) SR 12 hour tablet 500 mg 500 mg, Oral, EVERY 12 HOURS (BlD), First dose on Mon06/29/22 at 2100, Until Discontinued, Routine Given 07/08/2022 7:30 AM PLANT CYTOLOGIST 500 mg Given 07/07/2022 9:41 PM PLANT CYTOLOGIST 500 mg Given 07/07/2022 9:00 AM PLANT CYTOLOGIST 500 mg tiZANidine (ZANAFLEX) tablet 2 mg 2 mg, Oral, EVERY 8 HOURS, First dose on Gregoria 06/30/22 at 1300, Until Discontinued, Routine Given 07/02/2022 4:47 AM PLANT CYTOLOGIST 2 mg Given 07/01/2022 9:09 PM PLANT CYTOLOGIST 2 mg Given 07/01/2022 1:49 PM PLANT CYTOLOGIST 2 mg tiZANidine (ZANAFLEX) tablet 2 mg 2 mg, Oral, EVERY 12 HOURS, First dose (after last modification) on Greg[place] 07/07/22 at 1815, Until Discontinued, Routine Given 07/08/2022 5:59 AM PLANT CYTOLOGIST 2 mg Given 07/07/2022 6:11 PM PLANT CYTOLOGIST 2 mg tiZANidine (ZANAFLEX) tablet 4 mg 4 mg, Oral, EVERY 8 HOURS, First dose (after last modification) on [facility] 07/02/22 at 1300, Until Discontinued, Routine Given 07/07/2022 6:01 AM PLANT CYTOLOGIST 4 mg Given 07/06/2022 8:21 PM PLANT CYTOLOGIST 4 mg Given 07/06/2022 12:29 PM PLANT CYTOLOGIST 4 mg documented in this encounter Active and Recently Administered Medications Times are shown in PLANT CYTOLOGIST. Scheduled Medication Order 07/06/2022 07/07/2022 07/08/2022 aspirin (ECOTRIN EC) tablet 81 mg 81 mg, Oral, DAILY, First dose on Mon07/03/22 at 0900, Until Discontinued, Routine 0736 (Given - Provider: Leonela Lantigua RN)0900 (Canceled Entry - Provider: Leonela Lantigua RN) 0842 (Given - Provider: Fariha Alcazar LPN) 0728 (Given - Provider: Leonela Lantigua, LUAN)0900 (Canceled Entry - Provider: Leonela Lantigua RN) atorvastatin (LIPITOR) tablet 80 mg 80 mg, Oral, DAILY, First dose (after last modification) on [place] 06/30/22 at 0900, Until Discontinued 0737 (Given - Provider: Leonela Lantigua RN)0900 (Canceled Entry - Provider: Leonela Lantigua RN) 0843 (Given - Provider: Fariha Alcazar LPN) 0728 (Given - Provider: Leonela Lantigua, LUAN)0900 (Canceled Entry - Provider: Leonela Lantigua RN) calcitRIOL (ROCALTROL) capsule 0.25 mcg 0.25 mcg, Oral, DAILY, First dose (after last modification) on [place] 06/30/22 at 0900, Until Discontinued 0735 (Given - Provider: Leonela Lantigua RN)0900 (Canceled Entry - Provider: Leonela Lantigua RN) 0843 (Given - Provider: Fariha Alcazar LPN) 0727 (Given - Provider: Leonela Lantigua RN)0900 (Canceled Entry - Provider: Leonela Lantigua RN) calcium acetate (CALPHRON) tablet 667 mg 667 mg, Oral, THREE TIMES DAILY BEFORE MEALS, First dose (after last modification) on Mon06/29/22 at 1630, Until Discontinued 0734 (Given - Provider: Leonela Lantigua RN)1229 (Given - Provider: Leonela Lantigua RN)1706 (Given - Provider: Leonela Lantigua RN) 0842 (Given - Provider: Fariha Alcazar LPN)1212 (Given - Provider: GODWIN Yang)1812 (Given - Provider: GODWIN Yang) 0730 (Given - Provider: Leonela Lantigua RN)1318 (Given - Provider: Leonela Lantigua RN) clopidogreL (PLAVIX) tablet 75 mg 75 mg, Oral, DAILY, First dose (after last modification) on [place] 06/30/22 at 0900, Until Discontinued 0735 (Given - Provider: Leonela Lantigua RN)0900 (Canceled Entry - Provider: Leonela Lantigua RN) 0843 (Given - Provider: Fariha Alcazar LPN) 0728 (Given - Provider: Leonela Lantigua RN)0900 (Canceled Entry - Provider: Leonela Lantigua RN) colchicine (COLCRYS) tablet 0.6 mg 0.6 mg, Oral, EVERY 48 HOURS, First dose on [place] 06/30/22 at 0900, Until Discontinued, Routine 0735 (Given - Provider: Leonela Lantigua RN)0900 (Canceled Entry - Provider: Leonela Lantigua RN) 0728 (Given - Provider: Leonela Lantigua RN)0900 (Canceled Entry - Provider: Leonela Lantigua RN) darbepoetin genia (ARANESP) 100 mcg/0.5 mL injection 100 mcg 100 mcg, subCUT, EVERY 7 DAYS, First dose on Mon07/03/22 at 0900, Until Discontinued, Routine, Reason for treatment with Epoetin/Darbepoetin: Anemia of Chronic Kidney Disease (on dialysis) dextrose 5% - sodium chloride 0.9% infusion IV, at 40 mL/hr, SEE ADMIN INSTRUCTIONS, Starting on Mon06/29/22 at 1448, Until Mon07/08/22 at 1625, Routine dextrose 50% (D50) syringe 12.5 Gram 12.5 Gram, IV, SEE ADMIN INSTRUCTIONS, Starting on Mon06/29/22 at 1448, Until Mon07/08/22 at 1625, Routine dextrose 50% (D50) syringe 12.5 Gram 12.5 Gram, IV, SEE ADMIN INSTRUCTIONS, Starting on Mon06/29/22 at 1448, Until Mon07/08/22 at 1625, Routine dextrose 50% (D50) syringe 25 Gram 25 Gram, IV, SEE ADMIN INSTRUCTIONS, Starting on Mon06/29/22 at 1448, Until Mon07/08/22 at 1625, Routine dextrose 50% (D50) syringe 25 Gram 25 Gram, IV, SEE ADMIN INSTRUCTIONS, Starting on Mon06/29/22 at 1448, Until Mon07/08/22 at 1625, Routine doxycycline monohydrate (MONODOX) capsule 50 mg (CANCELED) 50 mg, Oral, EVERY 12 HOURS (BlD), First dose on Mon06/29/22 at 2100, Until Discontinued, Routine, Antibiotic Indication: Intra-abdominal infection / Fecal Contamination, Is sepsis suspected? Unlikely 0736 (Given - Provider: Leonela Lantigua RN)0900 (Canceled Entry - Provider: Leonela Lantigua RN)2017 (Given - Provider: Kamryn Browning RN) 0843 (Given - Provider: Fariha Alcazar LPN) doxycycline monohydrate (MONODOX) capsule 50 mg 50 mg, Oral, EVERY 12 HOURS (BlD), 5 doses, First dose (after last modification) on [facility] 07/07/22 at 2100, Last dose on 07/09/22 at 2100, Routine, Antibiotic Indication: Intra-abdominal infection / Fecal Contamination, Is sepsis suspected? Unlikely 2140 (Given - Provider: Shawn Silva RN) 07 (Given - Provider: Leonela Lantigua RN)0900 (Canceled Entry - Provider: Leonela Lantigua RN) ezetimibe (ZETIA) tablet 10 mg 10 mg, Oral, DAILY, First dose on [facility] 06/30/22 at 0900, Until Discontinued, Routine 0737 (Given - Provider: Leonela Lantigua RN)0900 (Canceled Entry - Provider: Leonela Lantigua RN) 0842 (Given - Provider: Fariha Alcazar LPN) 0728 (Given - Provider: Leonela Lantigua RN)0900 (Canceled Entry - Provider: Leonela Lantigua RN) folic acid-Vit B6-Vit B12 (FOLTX) per tablet 1 Tablet 1 Tablet, Oral, DAILY, First dose on Mon06/29/22 at 1500, Until Discontinued, Routine 0736 (Given - Provider: Leonela Lantigua RN)0900 (Canceled Entry - Provider: Leonela Lantigua RN) 0843 (Given - Provider: Fariha Alcazar LPN) 0729 (Given - Provider: Leonela Lantigua RN)0900 (Canceled Entry - Provider: Leonela Lantigua RN) furosemide (LASIX) tablet 80 mg 80 mg, Oral, DAILY, First dose (after last modification) on Mon07/05/22 at 0900, Until Discontinued, Routine 0736 (Given - Provider: Leonela Lantigua RN)0900 (Canceled Entry - Provider: Leonela Lantigua RN) 0842 (Given - Provider: Fariha Alcazar LPN) 0729 (Given - Provider: Leonela Lantigua RN)0900 (Canceled Entry - Provider: Leonela Lantigua RN) gentamicin (GARAMYCIN) 0.1 % topical ointment Topical, DAILY, First dose (after last modification) on Mon06/30/22 at 0900, Until Discontinued 0900 (Not Given - Provider: Leonela Lantigua RN - Reason: Other - See Comment - Comment: this is wrong med. Dialysis will not use oinment at PD site.) 0900 (Refused - Provider: GODWIN Yang) 0900 (Not Given - Provider: Leonela Lantigua RN - Reason: Other - See Comment - Comment: pt dose not use ointment on PD site) glucagon human recombinant (GLUCAGEN) 1 mg/mL injection 1 mg 1 mg, IM, SEE ADMIN INSTRUCTIONS, Starting on Mon06/29/22 at 1448, Until Mon07/08/22 at 1625, Routine glucagon human recombinant (GLUCAGEN) 1 mg/mL injection 1 mg 1 mg, IM, SEE ADMIN INSTRUCTIONS, Starting on Mon06/29/22 at 1448, Until Mon07/08/22 at 1625, Routine heparin injection 5,000 Units 5,000 Units, subCUT, EVERY 8 HOURS, First dose (after last modification) on Mon06/29/22 at 2100, Until Discontinued 0659 (Given - Provider: Kamryn Browning RN)1229 (Given - Provider: Leonela Lantigua RN)2024 (Given - Provider: Kamryn Browning RN) 0601 (Given - Provider: Kamryn Browning RN)1552 (Given - Provider: GODWIN Yang)2141 (Given - Provider: Shawn Silva, LUAN) 0500 (Given - Provider: Shawn Silva, LUAN)1318 (Refused - Provider: Leonela Lantigua RN) insulin aspart pump basal (NovoLOG) 100 unit/mL infusion subCUT, THREE TIMES DAILY, First dose on Mon06/29/22 at 2001, Until Discontinued, Routine, At rehab the patient must supply own pump insulin 0301 (Acknowledged - Provider: Kamryn Browning RN)0801 (Acknowledged - Provider: Leonela Lantigua RN)2000 (Acknowledged - Provider: Kamryn Browning RN) 0301 (Acknowledged - Provider: Kamryn Browning RN)0801 (Canceled Entry - Provider: Fariha Alcazar LPN)2000 (Acknowledged - Provider: Shawn Silva RN - Comment: pt states insulin pump provies 5.8 units currently) 0301 (Acknowledged - Provider: Shawn Silva RN - Comment: pt states current rate is 5.1)0801 (Acknowledged - Provider: Leonela Lantigua RN) insulin lispro (HumaLOG) variable dose injection subCUT, FOUR TIMES DAILY WITH MEALS AND AT BEDTIME, First dose on Mon06/29/22 at 1700, Until Discontinued, Routine 0800 (Not Given - Provider: Leonela Lantigua RN - Reason: Lab results)1200 (Not Given - Provider: Leonela Lantigua RN - Reason: Other - See Comment - Comment: bg 224 per pt meter. he gave 6.5 units per insulin pump. Current rate 0.8units.hr)1700 (Not Given - Provider: Leonela Lantigua RN - Reason: Other - See Comment - Comment: bg per our meter 257, pt meter 231. pt gave 5.54 units rate 0.8units/hr)2100 (Refused - Provider: Kamryn Browning RN - Comment: has his own insulin pump) 0800 (Not Given - Provider: Fariha Alcazar LPN - Reason: Lab results)1212 (Not Given - Provider: GODWIN Yang - Reason: Clarify-Other (Comment))1700 (Given - Provider: GODWIN Yang)2100 (Refused - Provider: Shawn Silva RN - Comment: pt states inslulin pump provides insulin) 0800 (Not Given - Provider: Leonela Lantigua RN - Reason: Lab results)1200 (Not Given - Provider: Leonela Lantigua RN - Reason: Other - See Comment - Comment: pt meter 320. our meter 272. pt pump gave 2.05. rate 0.8) isosorbide mononitrate (IMDUR) SR 24 hour tablet 30 mg 30 mg, Oral, DAILY, First dose (after last modification) on Mon06/30/22 at 0900, Until Discontinued 0028 (Order Unhold - Provider: Jasmin Bradley MD)0734 (Given - Provider: Leonela Lantigua RN)0900 (Canceled Entry - Provider: Leonela Lantigua RN) 0843 (Given - Provider: Fariha Alcazar LPN) 0730 (Given - Provider: Leonela Lantigua RN)0900 (Canceled Entry - Provider: Leonela Lantigua RN) melatonin tablet 6 mg 6 mg, Oral, DAILY AT BEDTIME, First dose on Mon06/29/22 at 2100, Until Discontinued, Routine 2017 (Given - Provider: Kamryn Browning RN) 2140 (Given - Provider: Shawn Silva, LUAN) metoprolol tartrate (LOPRESSOR) tablet 12.5 mg 12.5 mg, Oral, TWO TIMES DAILY, First dose (after last modification) on Mon07/04/22 at 2100, Until Discontinued 07 (Given - Provider: Leonela Lantigua RN)09 (Canceled Entry - Provider: Leonela Lantigua RN)2021 (Given - Provider: Kamryn Browning RN) 0843 (Given - Provider: Fariha Alcazar LPN)2145 (Given - Provider: Shawn Silva RN - Comment: bp 150/73) 0729 (Given - Provider: Leonela Lantigua RN)0900 (Canceled Entry - Provider: Leonela Lantigua RN) mineral oil-white petrolatum-ceresin (EUCERIN) topical cream Topical, DAILY, First dose on Mon07/05/22 at 1115, Until Discontinued, Routine 1234 (Given - Provider: Leonela Lantigua RN - Comment: bilat and abd) 0900 (Given - Provider: GODWIN Yang) 0736 (Given - Provider: Leonela Lantigua RN - Comment: bilat)0900 (Canceled Entry - Provider: Leonela Lantigua RN) naloxone (NARCAN) 0.4 mg/mL injection 0.1 mg 0.1 mg, IV, SEE ADMIN INSTRUCTIONS, Starting on Mon06/29/22 at 1448, Until Mon07/08/22 at 1625, Routine pantoprazole (PROTONIX) tablet 40 mg 40 mg, Oral, DAILY, First dose (after last modification) on Mon06/30/22 at 0600, Until Discontinued 0708 (Given - Provider: Kamryn Browning RN) 0600 (Given - Provider: Kamryn Browning RN) 0559 (Given - Provider: Shawn Silva, LUAN) peg 321-vrvgrzhhtnyw-ydplci in 1-0.2-0.2 % ophthalmic solution 1 Drop 1 Drop, Both Eyes, FOUR TIMES DAILY, First dose (after last modification) on Mon06/29/22 at 1800, Until Discontinued 0737 (Given - Provider: Leonela Lantigua RN)0900 (Canceled Entry - Provider: Leonela Lantigua RN)1229 (Given - Provider: Leonela Lantigua RN)1706 (Given - Provider: Leonela Lantigua RN)2029 (Given - Provider: Kamryn Browning RN) 0844 (Given - Provider: Fariha Alcazar LPN)1553 (Given - Provider: GODWIN Yang)1813 (Given - Provider: GODWIN Yang)214 (Given - Provider: Shawn Silva, LUAN) 0727 (Given - Provider: Leonela Lantigua RN)0900 (Canceled Entry - Provider: Leonela Lantigua RN)1318 (Given - Provider: Leonela Lantigua RN) ranolazine ER (RANEXA) SR 12 hour tablet 500 mg 500 mg, Oral, EVERY 12 HOURS (BlD), First dose on Mon06/29/22 at 2100, Until Discontinued, Routine 0736 (Given - Provider: Leonela Lantigua RN)0900 (Canceled Entry - Provider: Leonela Lantigua RN)2019 (Given - Provider: Kamryn Browning RN) 0900 (Given - Provider: Fariha Alcazar LPN)214 (Given - Provider: Shawn Silva RN) 0730 (Given - Provider: Leonela Lantigua RN)0900 (Canceled Entry - Provider: Leonela Lantigua RN) tiZANidine (ZANAFLEX) tablet 2 mg 2 mg, Oral, EVERY 12 HOURS, First dose (after last modification) on Gregoria 07/07/22 at 1815, Until Discontinued, Routine 181 (Given - Provider: GODWIN Yang) 0559 (Given - Provider: Shawn Silva RN) tiZANidine (ZANAFLEX) tablet 4 mg (CANCELED) 4 mg, Oral, EVERY 8 HOURS, First dose (after last modification) on 07/02/22 at 1300, Until Discontinued, Routine 0702 (Given - Provider: Kamryn Browning, LUAN)1229 (Given - Provider: Leonela Lantigua RN)2020 (Given - Provider: Kamryn Browning, LUAN) 0601 (Given - Provider: Kamryn Browning RN) PRN Medication Order 07/06/2022 07/07/2022 07/08/2022 acetaminophen (TYLENOL) tablet 650 mg 650 mg, Oral, EVERY 6 HOURS PRN, Starting on Mon06/29/22 at 2146, Until Mon07/08/22 at 1625, Other (See Comment), Pain, Moderate, Pain, Mild, See admin instructions, Routine albuterol (PROVENTIL,VENTOLIN) 2.5 mg /3 mL (0.083 %) inhalation solution 2.5 mg 2.5 mg, Inhalation, EVERY 6 HOURS PRN RESPIRATORY, Starting on Mon06/29/22 at 1448, Until Mon07/08/22 at 1625, Shortness of Breath, Wheezing, Routine aluminum - magnesium - simethicone (MYLANTA) 200-200-20 mg/5 mL oral suspension 30 mL 30 mL, Oral, EVERY 4 HOURS PRN, Starting on Mon06/29/22 at 1448, Until Mon07/08/22 at 1625, Indigestion, Routine bisacodyL (DULCOLAX) delayed release tablet 5 mg 5 mg, Oral, DAILY PRN, Starting on Mon06/29/22 at 1448, Until Mon07/08/22 at 1625, Constipation, Routine bisacodyL (DULCOLAX) rectal suppository 10 mg 10 mg, Rectal, DAILY PRN, Starting on Mon06/29/22 at 1448, Until Mon07/08/22 at 1625, Constipation, Routine calcium as carbonate (TUMS) 500 mg (200 mg elemental) chewable tablet 200 mg 200 mg, Oral, EVERY 4 HOURS PRN, Starting on Mon06/29/22 at 1448, Until Mon07/08/22 at 1625, Dyspepsia, Routine cetirizine (ZyrTEC) tablet 5 mg 5 mg, Oral, DAILY PRN, Starting on Mon06/29/22 at 1448, Until Mon07/08/22 at 1625, Congestion, Allergies, Rhinitis, Routine HYDROcodone-acetaminophen (NORCO) 5-325 mg per tablet 1 Tablet 1 Tablet, Oral, EVERY 6 HOURS PRN, Starting on Mon06/29/22 at 2147, Until Mon07/08/22 at 1625, Pain (See admin instructions), Pain, Severe, Routine 2016 (Given - Provider: Kamryn Browning RN) nitroglycerin (NITROSTAT) tablet 0.4 mg 0.4 mg, Sublingual, EVERY 5 MINUTES PRN, Starting on Mon06/29/22 at 1448, Until Mon07/08/22 at 1625, Chest Pain ondansetron (ZOFRAN ODT) tablet 4 mg 4 mg, Oral, EVERY 6 HOURS PRN, Starting on Mon06/29/22 at 1448, Until Mon07/08/22 at 1625, Nausea/Emesis, Routine prochlorperazine maleate (COMPAZINE) tablet 10 mg 10 mg, Oral, EVERY 6 HOURS PRN, Starting on Mon06/29/22 at 1448, Until Mon07/08/22 at 1625, Nausea/Emesis, Routine documented in this encounter Care Teams Marshmallow Machine Worker Relationship Specialty Start Date End Date Aditya Castro MD PCP - General Student in an Organized Health Care Education/Training Program 09/11/18 documented as of this encounter
--- OUTSIDE RECORDS SUMMARY | 2024-08-18 13:34 | XMS_ITS | Encounter Summary ---
Author Organization [facility] Address [address] [facility] Attn: Epic Prelude ADT [place] [address] Care Team Providers Care Skid Adzer Name Role Phone Aditya Castro MD Primary Care Provider [phone] Encounter Details Date Type Department Care Team (Latest Contact Info) Description 10/30/2019 Travel Social History Tobacco Use Types Packs/Day [...] on filedocumented in this encounter Care Teams Skid Adzer Relationship Specialty Start Date End Date Aditya Castro MD PCP - General Student in an Organized Health Care Education/Training Program 09/11/18 documented as of this encounter
--- OUTSIDE RECORDS SUMMARY | 2024-08-18 13:34 | XMS_ITS | Encounter Summary ---
Author Organization [facility] Address [address] [place] [address] Care Team Providers Care Manager Policy Name Role Phone Aditya Castro MD Primary Care Provider [phone] Encounter Details Date Type Department Care Team (Late st Contact Info) Description 06/18/2019 Orders Only [facility] Oncology and Hematology - [place] [address] [facility] [address] [place] [address] Fernando Schmid MD [address] [facility] [address] [place] [address] Anemia in stage 4 chronic [...] Associated Diagnosis Comments CBC WITH DIFFERENTIAL Stat 06/12/2019 Anemia in stage 4 chronic kidney disease documented in this encounter Results * (ABNORMAL) CBC WITH DIFFERENTIAL (06/12/2019) Blood Fernando Schmid MD HEMATOLOGY ORDERABLE S NON [facility] documented in this encounter Visit Diagnoses Diagnosis Anemia in stage 4 chronic kidney disease documented in this encounter Care Teams Manager Policy Relationship Specialty Start Date End Date Aditya Castro MD PCP - General Student in an Organized Health Care Education/Training Program 09/11/18 documented as of this encounter
--- OUTSIDE RECORDS SUMMARY | 2024-08-18 13:34 | XMS_ITS | Encounter Summary ---
Author Organization [facility] Address [address] [place] [address] Care Team Providers Care Cold Roller Name Role Phone Aditya Castro MD Primary Care Provider [phone] Encounter Details Date Type Department Care Team (Late st Contact Info) Description 10/23/2019 Orders Only [facility] Oncology and Hematology - [place] [address] [facility] [address] [place] [address] Fernando Schmid MD [address] [facility] [address] [place] [address] Anemia in stage 4 chronic kidney disease; Anemia of chronic renal failure, stage 4 (severe) Social History Tobacco Use Types Packs/Day Years [...] Associated Diagnosis Comments CBC WITH DIFFERENTIAL Stat 10/30/2019 Anemia in stage 4 chronic kidney disease BASIC METABOLIC PANEL Routine 10/30/2019 Anemia of chronic renal failure, stage 4 (severe) documented in this encounter Results * BASIC METABOLIC PANEL (10/30/2019) Blood Fernando Schmid MD CHEMISTRY ORDERABLES NON [facility] * CBC WITH DIFFERENTIAL (10/30/2019) Blood Fernando Schmid MD HEMATOLOGY ORDERABLE S Performing Organization Address [facility] Co de Phone Number NON [facility] documented in this encounter Visit Diagnoses Diagnosis Anemia in stage 4 chronic kidney disease Anemia of chronic renal failure, stage 4 (severe) documented in this encounter Care Teams Cold Roller Relationship Specialty Start Date End Date Aditya Castro MD PCP - General Student in an Organized Health Care Education/Training Program 09/11/18 documented as of this encounter
--- OUTSIDE RECORDS SUMMARY | 2024-08-18 13:34 | XMS_ITS | Encounter Summary ---
Author Organization [facility] Address [address] [place] [address] Care Team Providers Care Wood Scaler Name Role Phone Aditya Castro MD Primary Care Provider [phone] Encounter Details Date Type Department Care Team (Late st Contact Info) Description 05/29/2019 Orders Only [facility] Oncology and Hematology - [place] [address] [facility] [address] [place] [address] Fernando Schmid MD [address] [facility] [address] [place] [address] Anemia in stage 4 chronic [...] Associated Diagnosis Comments CBC WITH DIFFERENTIAL Stat 05/29/2019 Anemia in stage 4 chronic kidney disease documented in this encounter Results * (ABNORMAL) CBC WITH DIFFERENTIAL (05/29/2019) Blood Fernando Schmid MD HEMATOLOGY ORDERABLE S NON [facility] documented in this encounter Visit Diagnoses Diagnosis Anemia in stage 4 chronic kidney disease documented in this encounter Care Teams Wood Scaler Relationship Specialty Start Date End Date Aditya Castro MD PCP - General Student in an Organized Health Care Education/Training Program 09/11/18 documented as of this encounter
--- OUTSIDE RECORDS SUMMARY | 2024-08-18 13:34 | XMS_ITS | Encounter Summary ---
Author Organization [facility] Address [address] [place] [address] Care Team Providers Care Frozen Pie Maker Name Role Phone Aditya Castro MD Primary Care Provider [phone] Encounter Details Date Type Department Care Team (Late st Contact Info) Description 10/18/2019 Orders Only [facility] Oncology and Hematology - [place] [address] [facility] [address] [place] [address] Fernando Schmid MD [address] [facility] [address] [place] [address] Anemia of chronic renal failure, [...] Associated Diagnosis Comments CBC WITH DIFFERENTIAL Routine 10/16/2019 Anemia of chronic renal failure, stage 4 (severe) documented in this encounter Results * CBC WITH DIFFERENTIAL (10/16/2019) Blood Fernando Schmid MD HEMATOLOGY ORDERABLE S EXTERNAL LAB documented in this encounter Visit Diagnoses Diagnosis Anemia of chronic renal failure, stage 4 (severe) documented in this encounter Care Teams Frozen Pie Maker Relationship Specialty Start Date End Date Aditya Castro MD PCP - General Student in an Organized Health Care Education/Training Program 09/11/18 documented as of this encounter
--- OUTSIDE RECORDS SUMMARY | 2024-08-18 13:34 | XMS_ITS | Encounter Summary ---
Author Organization [facility] Address [address] [place] [address] Care Team Providers Care Hogshead Inspector Name Role Phone Aditya Castro MD Primary Care Provider [phone] Encounter Details Date Type Department Care Team (Late st Contact Info) Description 07/23/2019 Orders Only [facility] Oncology and Hematology - [place] [address] [place] [address] [facility] [address] [place] [address] Fernando Schmid MD [address] [facility] [address] [place] [address] Anemia in stage 4 chronic [...] Associated Diagnosis Comments CBC WITH DIFFERENTIAL Routine 08/15/2019 Anemia in stage 4 chronic kidney disease documented in this encounter Results * CBC WITH DIFFERENTIAL (08/15/2019) Blood Fernando Schmid MD HEMATOLOGY ORDERABLE S EXTERNAL LAB documented in this encounter Visit Diagnoses Diagnosis Anemia in stage 4 chronic kidney disease documented in this encounter Care Teams Hogshead Inspector Relationship Specialty Start Date End Date Aditya Castro MD PCP - General Student in an Organized Health Care Education/Training Program 09/11/18 documented as of this encounter
--- OUTSIDE RECORDS SUMMARY | 2024-08-18 13:34 | XMS_ITS | Encounter Summary ---
Author Organization [facility] [employer] [facility] Address [address] [place] [address] Care Team Providers Care Passenger Tire Builder Name Role Phone Aditya Castro MD Primary Care Provider [phone] Reason for Visit * Reason Comments Follow Up 3 month f/u w/labs Encounter Details Date Type Department Care Team (Late st Contact Info) Description 10/30/2019 11:00 AM CDT Office Visit [facility] Oncology and Hematology - [place] [address] [facility] [address] [place] [address] Fernando Schmid MD [address] [facility] [address] [place] [address] Anemia in stage 4 chronic kidney disease (Primary Dx); Chronic kidney disease, stage 4 (severe); Chronic embolism and thrombosis of unspecified deep veins of right lower extremity Social History Tobacco Use Types Packs/Day Years [...] Sign Reading Time Taken Comments Blood Pressure 139/60 10/30/2019 10:00 AM CDT Pulse 56 10/30/2019 10:00 AM CDT Temperature 36.7 ??C (98 ??F) 10/30/2019 10: 00 AM CDT Respiratory Rate - - Oxygen Saturation 97% 10/30/2019 10: 00 AM CDT Inhaled Oxygen Concentration - - Weight 124.1 kg (273 lb 11.2 oz) 2019 10:00 AM CDT Height 175.3 cm (5' 9 ) 10/30/2019 10:0 0 AM CDT Body Mass Index 40.42 10/30/2019 10:00 AM CDT documented in this encounter Progress Notes * Fernando Schmid MD - 10/30/2019 11:20 AM CDT HEMATOLOGY / ONCOLOGY PROGRESS NOTE Patient Identification: Name: Juvenal Daigle Age: 49 y.o. Sex: male : 1970 DIAGNOSIS Anemia of chronic renal failure CURRENT TREATMENT Procrit every 2 weeks basis TREATMENT HISTORY Procrit started in June 2017 SUBJECTIVE Patient came into the office for follow-up visit and continuation of Procrit injection. He is complaining of some abdominal soreness at the site of peritoneal dialysis catheter placement. He denies any fevers and chills. He has no other new complaints. Review of system Constitutional: denies fevers, sweats, fatigue, malaise, weight loss HEENT: denies sinus congestion, hearing or vision problems Respiratory: denies cough, dyspnea, wheeze Cardiovascular: denies chest pain, exertional chest pressure/discomfort, nausea, syncope, shortnessof breath GI: denies constipation, diarrhea, dsyphagia, reflux symptoms, vomiting, melena, abdominal discomfort at the site of PD catheter placement : denies dysuria, frequency, incontinence, urgency Integumentary [...] showed WBC 5.4 hemoglobin 9.6 platelet 260,000. Labs from October 29 showed WBC 4.1 hemoglobin 9.0 MCV 89 platelet 169,000 creatinine 4.9 Assessment: Plan: Patient Active Problem List Diagnosis Date Noted ??? Chronic embolism and thrombosis of unspecified deep veins of right lower extremity 10/30/2019 ??? Anemia of chronic renal failure, stage 4 (severe) 06/05/2017 Anemia of chronic renal failure stage IV disease with underlying diabetes. Labs reviewed. He will continue Procrit 20,000 units on a biweekly basis. I have instructed him to take oral iron once a day. I will see him back in 3 months. Chronic kidney disease. Patient is going to start peritoneal dialysis. Coronary artery disease. Status post stent placement in March 2017. Patient had 3 more stent placed in November 2018. Patient is on aspirin and Plavix. He denies any bleeding. History of left lower extremity DVT. No evidence of blood clot at this point. TOBACCO COUNSELING He is not a tobacco user. 10/30/2019 Fernando Schmid MD documented in this encounter Plan of Treatment Scheduled Orders Name Type Priority Associated Diagnoses Orde r Schedule CBC WITH DIFFERENTIAL Lab Routine Anemia in stage 4 chronic kidney disease Expected: 01/22/2020, Expires: 10/29/2020 BASIC METABOLIC PANEL Lab Routine Anemia in stage 4 chronic kidney disease Expected: 01/22/2020, Expires: 10/29/2020 IRON, TIBC, AND PERCENT SATURATION Lab Routine Anemia in stage 4 chronic kidney disease Expected: 01/22/2020, Expires: 10/29/2020 FERRITIN Lab Routine Anemia in stage 4 chronic kidney disease Expected: 01/22/2020, Expires: 10/29/2020 documented as of this encounter Visit Diagnoses Diagnosis Anemia in stage 4 chronic kidney disease- Primary Chronic kidney disease, stage 4 (severe) Chronic embolism and thrombosis of unspecified deep veins of right lower extremity documented in this encounter Care Teams Passenger Tire Builder Relationship Specialty Start Date End Date Aditya Castro MD PCP - General Student in an Organized Health Care Education/Training Program 09/11/18 documented as of this encounter
--- OUTSIDE RECORDS SUMMARY | 2024-08-18 13:34 | XMS_ITS | Encounter Summary ---
Author Organization [facility] Address [address] [place] [address] Care Team Providers Care Media Analyst Name Role Phone Aditya Catsro MD Primary Care Provider [phone] Encounter Details Date Type Department Care Team (Late st Contact Info) Description 02/20/2019 Orders Only [facility] Oncology and Hematology - [place] [address] [facility] [address] [place] [address] Fernando Schmid MD [address] [facility] [address] [place] [address] Anemia in stage 4 chronic [...] Associated Diagnosis Comments CBC WITH DIFFERENTIAL Stat 02/20/2019 Anemia in stage 4 chronic kidney disease documented in this encounter Results * CBC WITH DIFFERENTIAL (02/20/2019) Blood Fernando Schmid MD HEMATOLOGY ORDERABLE S NON [facility] documented in this encounter Visit Diagnoses Diagnosis Anemia in stage 4 chronic kidney disease documented in this encounter Care Teams Media Analyst Relationship Specialty Start Date End Date Aditya Castro MD PCP - General Student in an Organized Health Care Education/Training Program 09/11/18 documented as of this encounter
--- OUTSIDE RECORDS SUMMARY | 2024-08-18 13:34 | XMS_ITS | Encounter Summary ---
Author Organization [facility] Address [address] [place] [address] Care Team Providers Care Direct Entry Midwife Name Role Phone Aditya Castro MD Primary Care Provider [phone] Encounter Details Date Type Department Care Team (Late st Contact Info) Description 01/28/2020 Orders Only [facility] Oncology and Hematology - [place] [address] [phone] Ramona Santos RN Anemia in stage 4 chronic kidney disease [...] disease documented in this encounter Care Teams Direct Entry Midwife Relationship Specialty Start Date End Date Aditya Castro MD PCP - General Student in an Organized Health Care Education/Training Program 09/11/18 documented as of this encounter
--- OUTSIDE RECORDS SUMMARY | 2024-08-18 13:34 | XMS_ITS | Encounter Summary ---
Author Organization [facility] Address [address] [place] [address] Care Team Providers Care Ice Hockey Coach Name Role Phone Aditya Castro MD Primary Care Provider [phone] Encounter Details Date Type Department Care Team (Late st Contact Info) Description 07/12/2019 Orders Only [facility] Oncology and Hematology - [place] 2[address] [facility] 200 [place] [address] Fernando Schmid MD [address] [facility] [address] [place] [address] Anemia in stage 4 chronic [...] Associated Diagnosis Comments CBC WITH DIFFERENTIAL Stat 07/12/2019 Anemia in stage 4 chronic kidney disease documented in this encounter Results * CBC WITH DIFFERENTIAL (07/12/2019) Blood Fernando Schmid MD HEMATOLOGY ORDERABLE S [facility] documented in this encounter Visit Diagnoses Diagnosis Anemia in stage 4 chronic kidney disease documented in this encounter Care Teams Ice Hockey Coach Relationship Specialty Start Date End Date Aditya Castro MD PCP - General Student in an Organized Health Care Education/Training Program 09/11/18 documented as of this encounter
--- OUTSIDE RECORDS SUMMARY | 2024-08-18 13:34 | XMS_ITS | Encounter Summary ---
Author Organization [facility] Address [address] [place] [address] Care Team Providers Care Chief Creative Officer Name Role Phone Aditya Castro MD Primary Care Provider [phone] Encounter Details Date Type Department Care Team (Late st Contact Info) Description 03/20/2019 Orders Only [facility] Oncology and Hematology - [place] 2[address] [facility] 200 [place] [address] Fernando Schmid MD 2227 [facility] [address] [place] [address] Anemia in stage 4 chronic [...] Associated Diagnosis Comments CBC WITH DIFFERENTIAL Stat 03/20/2019 Anemia in stage 4 chronic kidney disease documented in this encounter Results * (ABNORMAL) CBC WITH DIFFERENTIAL (03/20/2019) Blood Fernando Schmid MD HEMATOLOGY ORDERABLE S NON [facility] documented in this encounter Visit Diagnoses Diagnosis Anemia in stage 4 chronic kidney disease documented in this encounter Care Teams Chief Creative Officer Relationship Specialty Start Date End Date Aditya Castro MD PCP - General Student in an Organized Health Care Education/Training Program 09/11/18 documented as of this encounter
--- OUTSIDE RECORDS SUMMARY | 2024-08-18 13:34 | XMS_ITS | Encounter Summary ---
Author Organization [facility] Address [address] [place] [address] Care Team Providers Care Auto Top Mechanic Name Role Phone Aditya Castro MD Primary Care Provider [phone] Reason for Visit * Reason Comments Follow Up 3 month Encounter Details Date Type Department Care Team (Late st Contact Info) Description 05/01/2019 10:00 AM CDT Office Visit [facility] Oncology and Hematology - [place] [address] [place] [address] [facility] 200 [place] [address] Fernando Schmid MD 2[address] [facility] [address] [place] [address] Anemia in stage 4 chronic kidney disease (Primary Dx) Social History Tobacco Use Types [...] Sign Reading Time Taken Comments Blood Pressure 146/65 05/01/2019 9:55 AM CDT Pulse 62 05/01/2019 9:55 AM CDT Temperature 36.5 ??C (97.7 ??F) 05/01/2019 9:55 AM CD T Respiratory Rate - - Oxygen Saturation 97% 05/01/2019 9:55 AM CDT Inhaled Oxygen Concentration - - Weight 117.7 kg (259 lb 6.4 oz) 05/01/2019 9:55 AM CDT Height 175.3 cm (5' 9 ) 05/01/2019 9:55 AM CDT Body Mass Index 38.31 05/01/2019 9:55 AM CDT documented in this encounter Progress Notes * Fernando Schmid MD - 05/01/2019 10:28 AM CDT HEMATOLOGY / ONCOLOGY PROGRESS NOTE Patient Identification: Name: Juvenal Daigle Age: 48 y.o. Sex: male : 1970 DIAGNOSIS Anemia of chronic renal failure CURRENT TREATMENT Procrit every 2 weeks basis TREATMENT HISTORY Procrit started in June 2017 SUBJECTIVE Patient came into the office for follow-up visit. He denies any excessive tiredness and fatigue. Patient had umbilical hernia surgery done on March 19, 2019. Denies any bleeding and bruising. No new complaints. Review of system Constitutional: denies [...] obvious focal deficit [facility] Labs from May 01 showed WBC 4.4 hemoglobin 8.8 platelet 183,000 Assessment: Plan: Patient Active Problem List Diagnosis Date Noted ??? Anemia of chronic renal failure, stage 4 (severe) 06/05/2017 Anemia of chronic renal failure stage IV disease with underlying diabetes. Labs reviewed. Patient will continue Procrit 20,000 units on every 2 weeks basis. He missed Procrit injection about 2 weeks ago. Patient also will continue oral iron at least once a day. Chronic kidney disease. Patient has been followed by Dr. Reyes. Last GFR was 12%. Patient may need dialysis soon. Coronary artery disease status post stent placement in March 2017. Patient is on Plavix. History of left lower extremity DVT. No evidence of DVT. ? TOBACCO COUNSELING He is not a tobacco user. 05/01/2019 Fernando Schmid MD documented in this encounter Plan of Treatment Not on file documented as of this encounter Results * CBC WITH DIFFERENTIAL (08/15/2019) Blood Fernando Schmid MD HEMATOLOGY ORDERABLE S Performing Organization Address City/[facility] Co de Phone Number EXTERNAL LAB * BASIC METABOLIC PANEL (05/15/2019) Blood Fernando Schmid MD CHEMISTRY ORDERABLES EXTERNAL LAB documented in this encounter Visit Diagnoses Diagnosis Anemia in stage 4 chronic kidney disease- Primary documented in this encounter Care Teams Auto Top Mechanic Relationship Specialty Start Date End Date Aditya Castro MD PCP - General Student in an Organized Health Care Education/Training Program 09/11/18 documented as of this encounter
--- OUTSIDE RECORDS SUMMARY | 2024-08-18 13:34 | XMS_ITS | Encounter Summary ---
Author Organization [facility] Address [address] [place] [address] Care Team Providers Care Gmat Tutor Name Role Phone Aditya Castro MD Primary Care Provider [phone] Encounter Details Date Type Department Care Team (Late st Contact Info) Description 01/30/2019 Orders Only [facility] Oncology and Hematology - [place] [address] [facility] 200 [place] [address] Fernando Schmid MD 2227 [facility] [address] [place] [address] Anemia in stage 4 chronic [...] Associated Diagnosis Comments CBC WITH DIFFERENTIAL Stat 01/29/2019 Anemia in stage 4 chronic kidney disease documented in this encounter Results * (ABNORMAL) CBC WITH DIFFERENTIAL (01/29/2019) Blood Fernando Schmid MD HEMATOLOGY ORDERABLE S NON [facility] documented in this encounter Visit Diagnoses Diagnosis Anemia in stage 4 chronic kidney disease documented in this encounter Care Teams Gmat Tutor Relationship Specialty Start Date End Date Aditya Castro MD PCP - General Student in an Organized Health Care Education/Training Program 09/11/18 documented as of this encounter
--- OUTSIDE RECORDS SUMMARY | 2024-08-18 13:35 | XMS_ITS | Encounter Summary ---
Author Organization [facility] Address [address] [place] [address] Care Team Providers Care Hand Roller Name Role Phone Aditya Castro MD Primary Care Provider [phone] Encounter Details Date Type Department Care Team (Late st Contact Info) Description 10/23/[address] [facility] Oncology and Hematology - [place] [address] [facility] 200 [place] [address] Fernando Schmid MD [address] [facility] [address] [place] [address] Anemia of chronic renal failure, [...] Procedure Name Priority Date/Time Associated Diagnosis Comments IRON, TIBC, AND PERCENT SATURATION Routine 10/23/2018 Anemia of chronic renal failure, stage 4 (severe) FERRITIN Routine 10/23/2018 Anemia of chronic renal failure, stage 4 (severe) documented in this encounter Results * IRON, TIBC, AND PERCENT SATURATION (10/23/2018) Blood Fernando Schmid MD CHEMISTRY ORDERABLES EXTERNAL LAB * FERRITIN (10/23/2018) Blood Fernando Schmid MD CHEMISTRY ORDERABLES Performing Organization Address City/[facility] Co de Phone Number EXTERNAL LAB documented in this encounter Visit Diagnoses Diagnosis Anemia of chronic renal failure, stage 4 (severe)- Primary documented in this encounter Care Teams Hand Roller Relationship Specialty Start Date End Date Aditya Castro MD PCP - General Student in an Organized Health Care Education/Training Program 09/11/18 documented as of this encounter
--- OUTSIDE RECORDS SUMMARY | 2024-08-18 13:35 | XMS_ITS | Encounter Summary ---
Author Organization [facility] Address [address] [place] [address] Care Team Providers Care Loading Inspector Name Role Phone Aditya Castro MD Primary Care Provider [phone] Encounter Details Date Type Department Care Team (Late st Contact Info) Description 01/23/2019 Orders Only [facility] Oncology and Hematology - [place] [address] [facility] 200 [place] [address] Fernando Schmid MD 2[address] [facility] [address] [place] [address] Anemia in stage 4 chronic [...] Associated Diagnosis Comments CBC WITH DIFFERENTIAL Stat 01/25/2019 Anemia in stage 4 chronic kidney disease documented in this encounter Results * (ABNORMAL) CBC WITH DIFFERENTIAL (01/25/2019) Blood Fernando Schmid MD HEMATOLOGY ORDERABLE S NON [facility] documented in this encounter Visit Diagnoses Diagnosis Anemia in stage 4 chronic kidney disease documented in this encounter Care Teams Loading Inspector Relationship Specialty Start Date End Date Aditya Castro MD PCP - General Student in an Organized Health Care Education/Training Program 09/11/18 documented as of this encounter
--- OUTSIDE RECORDS SUMMARY | 2024-08-18 13:35 | XMS_ITS | Encounter Summary ---
Author Organization [facility] Address [address] [place] [address] Care Team Providers Care Lasting Machine Operator Bed Name Role Phone Aditya Castro MD Primary Care Provider [phone] Reason for Visit * Reason Comments Follow Up Results * Eval and Treat (Routine) - Closed Specialty Diagnoses / Procedures Referred By Aguilar lora Referred To Contact Oncology Diagnoses N18.4 Procedures Office Visit level 3-5 Aditya Castro MD [address] [place] [address] Fernando Schmid MD [address] [facility] [address] [place] [address] Referral ID Status Reason Start Date Expiration Date Visits Re quested Visits Authorized [id number] Closed 10/23/2018 01/23/2019 1 6 Encounter Details Date Type Department Care Team (Late st Contact Info) Description 10/23/2018 10:45 AM EDUCATIONAL THERAPIST Office Visit [facility] Oncology and Hematology - [place] [address] [facility] 200 [place] [address] Fernando Schmid MD [address] [facility] [employer] [address] [place] [address] Anemia in stage 4 chronic [...] Sign Reading Time Taken Comments Blood Pressure 165/69 10/23/2018 10:25 AM EDUCATIONAL THERAPIST Pulse 69 10/23/2018 10:25 AM EDUCATIONAL THERAPIST Temperature 36.9 ??C (98.4 ??F) 10/23/2018 1 0:25 AM EDUCATIONAL THERAPIST Respiratory Rate 18 10/23/2018 10:2 5 AM EDUCATIONAL THERAPIST Oxygen Saturation 96% 10/23/2018 10: 25 AM EDUCATIONAL THERAPIST Inhaled Oxygen Concentration - - Weight 122.8 kg (270 lb 11.2 oz) 2018 10:25 AM EDUCATIONAL THERAPIST Height 177.8 cm (5' 10 ) 10/23/2018 10: 25 AM EDUCATIONAL THERAPIST Body Mass Index 38.84 10/23/2018 10:25 AM EDUCATIONAL THERAPIST documented in this encounter Progress Notes * Fernando Schmid MD - 10/23/2018 12:00 PM CST HEMATOLOGY / ONCOLOGY PROGRESS NOTE Patient Identification: Name: Juvenal Daigle Age: 48 y.o. Sex: male : 1970 Subjective: HPI This is a pleasant 48-year-old obese male with a history of coronary artery disease status post stent placement in March 2017 along with history of right lower extremity DVT diagnosed in February 2017 and has been on a liquid since then. Patient has a history of diabetes diagnosed in 1984 along with history of chronic kidney disease secondary to diabetes diagnosed 5 years ago. He was seen in the hospital where he came in with a shortness of breath along with chest discomfort. Hemoglobin was found to be 8.5 and the chest x-ray showed opacity in the lingula and left upper lobe consistentwith atelectasis versus pneumonia. Doppler studies were repeated in the hospital that came back positive for the right lower extremity DVT. Patient received Procrit injection in the hospital due to anemia of chronic kidney disease. He was discharged from the hospital on May 16. Interval History: Patient was discharged home on July 04, 2017. Patient received Procrit injection in the hospital on June 26, 2017. Patient also received one unit of packed red blood cell transfusion in the hospital on June 29, 2017. Review of system Constitutional: No fever; no night sweats; no anorexia; no weight loss; denies tiredness and fatigue Respiratory: No shortness of breath; no pleuritic chest pain; no cough; no hemoptysis Cardiac: No cardiac-like chest pain; no palpitations; no orthopnea; no PND; no ROONEY GI: No abdominal pain; no nausea; no vomiting; no diarrhea; no hematochezia; no melena Musculosketetal: no bone pain; no arthralgia; no joint swelling; no myalgia; Neuro: No headache; no change in vision; no sensory changes; no muscle weakness; no confusion; no seizures Ext no edema Objective: Vital signs in last 24 hours: As per nursing note Exam: Gen: NAD Lungs: Clear Cardiac: S1 and S2 without murmurs or gallops Abd: Soft, tender, no hepatomegally, no masses Extr: No LE edema Scheduled Meds:@[email or web address]@ Continuous Infusions:@MEDSINFUSIONS@ Data Review: [facility] Labs from June 02 showed WBC 5.2 hemoglobin 8.8 MCV 83.8 platelet 215,000. Labs from May 15 showed creatinine of 1.8. Iron 30 iron saturation 13% TIBC 234 vitamin B12 334 Labs from January 18 showed WAC 4.9 hemoglobin 9.5 MCV 85.6 platelets 211,000. From February 28 showed W BC 5.8 hemoglobin 9.4 platelet 227,000 iron 50 iron saturation 19% ferritin 78. Labs from April 16 showed WBC 5.7 hemoglobin 10.4 platelet 229,000. Labs from June 15 with WBC 5.1 hemoglobin 10.2 platelet 234,000. Labs from July 17 showed WBC 6.2 hemoglobin 9.3 platelet 240,000. From September 11 showed WBC 6.0 hemoglobin 9.5 platelet 240,000. Lab from October 23 showed W BC 3.9 hemoglobin 10 platelet 222,000 @IMAGEIMP@ Assessment: Plan: Patient Active Problem List Diagnosis Date Noted ??? Anemia of chronic renal failure, stage 4 (severe) 06/05/2017 Anemia secondary to chronic renal failure stage IV. Patient has history of diabetes diagnosed in 1984 and subsequent development of chronic kidney disease 5 years ago. Labs reviewed. Hemoglobin remains stable. He will continue Procrit on every two- week basis for hemoglobin of less than 11. He will also continue oral iron. Clinically he is feeling much better and stronger. I will check iron studies today. I will see him back in 3 months. Right lower extremity DVT unprovoked diagnosed in February 2017. VQ scan done at that time came back unremarkable. Eliquis has been discontinued as Doppler studies done chronic DVT. Patient will continuePlavix. Coronary artery disease status post stent placement in March 2017. Patient is on Plavix. Chronic kidney disease. Patient has been followed by Dr. Reyes. 10/23/2018 Fernando Schmid MD ATIONAL THERAPIST documented in this encounter Plan of Treatment Not on file documented as of this encounter Results * BASIC METABOLIC PANEL (01/11/2019) Blood Fernando Schmid MD CHEMISTRY ORDERABLES Performing Organization Address City/[facility] Co de Phone Number EXTERNAL LAB * (ABNORMAL) CBC WITH DIFFERENTIAL (01/11/2019) Blood Fernando Schmid MD HEMATOLOGY ORDERABLE S Performing Organization Address City/[facility] Co de Phone Number EXTERNAL LAB documented in this encounter Visit Diagnoses Diagnosis Anemia in stage 4 chronic kidney disease- Primary documented in this encounter Care Teams Lasting Machine Operator Bed Relationship Specialty Start Date End Date Aditya Castro MD PCP - General Student in an Organized Health Care Education/Training Program 09/11/18 documented as of this encounter
--- OUTSIDE RECORDS SUMMARY | 2024-08-18 13:35 | XMS_ITS | Encounter Summary ---
Author Organization [facility] Address [address] [address] Phone Care Team Providers Care Physician President Name Role Phone Unavailable Primary Care Provider Unavailabl e Reason for Visit * Reason Comments Med Refill Encounter Details Date Type Department Care Team (Late st Contact Info) Description 10/08/2019 Refill [facility] [address] [address] Leandro Reyes MD [address] [address] Social History Tobacco Use Types Packs/Day Years [...]
--- OUTSIDE RECORDS SUMMARY | 2024-08-18 13:35 | XMS_ITS | Encounter Summary ---
Author Organization [facility] Address [address] [place] [address] Care Team Providers Care Delicatessen Department Manager Name Role Phone Jhonatan Bellamy MD Primary Care Provider [phone] Encounter Details Date Type Department Care Team (Late st Contact Info) Description 07/31/2018 Orders Only [facility] Oncology and Hematology - [place] [address] [facility] 200 [place] [address] Fernando Schmid MD 2227 [facility] [address] [place] [address] Anemia in stage 4 chronic [...] as of this encounter Plan of Treatment Scheduled Orders Name Type Priority Associated Diagnoses Orde r Schedule CBC WITH DIFFERENTIAL Lab Stat Anemia in stage 4 chronic kidney disease Every 2 Weeks for 26 Occurrences starting 07/31/2018 until 10/22/2020, 17 completed documented as of this encounter Results * CBC WITH DIFFERENTIAL (10/30/2019) Blood Fernando Schmid MD HEMATOLOGY ORDERABLE S [facility] * CBC WITH DIFFERENTIAL (07/12/2019) Blood Fernando Schmid MD HEMATOLOGY ORDERABLE S Performing Organization Address [facility]/ZIP Co de Phone Number NON [facility] * (ABNORMAL) CBC WITH DIFFERENTIAL (06/12/2019) Blood Fernando Schmid MD HEMATOLOGY ORDERABLE S [facility] * (ABNORMAL) CBC WITH DIFFERENTIAL (05/29/2019) Blood Fernando Schmid MD HEMATOLOGY ORDERABLE S Performing Organization Address [facility]/ZIP Co de Phone Number [facility] * (ABNORMAL) CBC WITH DIFFERENTIAL (05/15/2019) Blood Fernando Schmid MD HEMATOLOGY ORDERABLE S Performing Organization Address [facility]/ZIP Co de Phone Number NON [facility] * (ABNORMAL) CBC WITH DIFFERENTIAL (04/05/2019) Blood Fernando Schmid MD HEMATOLOGY ORDERABLE S Performing Organization Address [facility]/ZIP Co de Phone Number NON [facility] * (ABNORMAL) CBC WITH DIFFERENTIAL (03/20/2019) Blood Fernando Schmid MD HEMATOLOGY ORDERABLE S Performing Organization Address [facility]/State/ZIP Co de Phone Number [facility] * (ABNORMAL) CBC WITH DIFFERENTIAL (03/06/2019) Blood Fernando Schmid MD HEMATOLOGY ORDERABLE S [facility] * CBC WITH DIFFERENTIAL (02/20/2019) Blood Fernando Schmid MD HEMATOLOGY ORDERABLE S [facility] * (ABNORMAL) CBC WITH DIFFERENTIAL (02/08/2019) Blood Fernando Schmid MD HEMATOLOGY ORDERABLE S [facility] * (ABNORMAL) CBC WITH DIFFERENTIAL (01/29/2019) Blood Fernando Schmid MD HEMATOLOGY ORDERABLE S [facility] * (ABNORMAL) CBC WITH DIFFERENTIAL (01/25/2019) Blood Fernando Schmid MD HEMATOLOGY ORDERABLE S [facility] * (ABNORMAL) CBC WITH DIFFERENTIAL (12/04/2018) Blood Fernando Schmid MD HEMATOLOGY ORDERABLE S [facility] * (ABNORMAL) CBC WITH DIFFERENTIAL (11/21/2018) Blood Fernando Schmid MD HEMATOLOGY ORDERABLE S [facility] * CBC WITH DIFFERENTIAL (09/25/2018) Blood Fernando Schmid MD HEMATOLOGY ORDERABLE S [facility] * (ABNORMAL) CBC WITH DIFFERENTIAL (08/16/2018) Blood Fernando Schmid MD HEMATOLOGY ORDERABLE S [facility] * CBC WITH DIFFERENTIAL (07/31/2018) Blood Fernando Schmid MD HEMATOLOGY ORDERABLE S Performing Organization Address [facility] Co de Phone Number [facility] documented in this encounter Visit Diagnoses Diagnosis Anemia in stage 4 chronic kidney disease- Primary documented in this encounter Care Teams Delicatessen Department Manager Relationship Specialty Start Date End Date Jhonatan Bellamy MD [address] [place] [address] [place] [id number] PCP - General Family Practice 06/05/17 09/10/18 documented as of this encounter
--- OUTSIDE RECORDS SUMMARY | 2024-08-18 13:35 | XMS_ITS | Encounter Summary ---
Author Organization [facility] Address [address] [place] [address] Care Team Providers Care Chute Boss Name Role Phone Jhonatan Bellamy MD Primary Care Provider [phone] Encounter Details Date Type Department Care Team (Late st Contact Info) Description 06/04/2018 Orders Only [facility] Oncology and Hematology - [place] [address] [phone] Tanna Costa RN Anemia of chronic renal failure, stage 4 [...] Associated Diagnosis Comments CBC WITH DIFFERENTIAL Stat 06/04/2018 Anemia of chronic renal failure, stage 4 (severe) documented in this encounter Results * CBC WITH DIFFERENTIAL (06/04/2018) Blood Fernando Schmid MD HEMATOLOGY ORDERABLE S EXTERNAL LAB documented in this encounter Visit Diagnoses Diagnosis Anemia of chronic renal failure, stage 4 (severe) documented in this encounter Care Teams Chute Boss Relationship Specialty Start Date End Date Jhonatan Bellamy MD [address] [place] [address] PCP - General Family Practice 06/05/17 09/10/18 documented as of this encounter
--- OUTSIDE RECORDS SUMMARY | 2024-08-18 13:35 | XMS_ITS | Encounter Summary ---
Author Organization [facility] Address [address] [address] Phone Care Team Providers Care Auto Vinyl Top Installer Name Role Phone Unavailable Primary Care Provider Unavailabl e Reason for Visit * Reason Comments CKD Encounter Details Date Type Department Care Team (Latest Contact Info) Description 10/29/2019 10:20 AM CDT Office Visit [facility] [address] [place] [address] Ricardo Reyes MD [address] [address] Stage 5 chronic kidney disease (CMS-HCC) (Primary Dx); Type 2 diabetes mellitus with diabetic nephropathy (CMS-HCC); Secondary hyperparathyroidism (CMS-HCC); Hypertensive end stage renal disease (CMS-HCC); Obstructive sleep apnea; Anemia in chronic kidney disease Social History Tobacco Use [...] Sign Reading Time Taken Comments Blood Pressure 156/55 10/29/2019 10:50 AM CDT Pulse 56 10/29/2019 10:50 AM CDT Temperature - - Respiratory Rate - - Oxygen Saturation - - Inhaled Oxygen Concentration - - Weight 124 kg (273 lb) 10/29/2019 10:50 AM CDT Height 177.8 cm (5' 10 ) 10/29/2019 10:50 AM CDT Body Mass Index 39.17 10/29/2019 10:50 AM CDT documented in this encounter Progress Notes * Ricardo Reyes MD - 10/29/2019 10:20 AM CDT Patient: Juvenal Daigle Birthdate: 1970 PCP: No primary care provider on file. Reason for visit: Visit Date: 10/29/2019 CHIEF COMPLAINT CKD INTERIM HISTORY Juvenal Daigle is a 49 y.o. male presenting with a past medical history of Diabetes mellitus and hypertension, fluid retention, sleep apnea on CPAP, secondary hyperparathyroidism, anemia of chronic kidney disease. He has underlying coronary artery disease as well. He had a peritoneal dialysis catheter placed last week. He has not yet started on peritoneal dialysis. He is to see the peritoneal dialysis nurse today. He is complaining of a bit of soreness post surgery. Areas are healing up. He had the peritoneal dialysis catheter laparoscopically placed. His bowels are moving. There is no nausea or vomiting. His appetite is diminished. However he has gained close to 20 pounds of fluid weight since last seen in the office on October 01, 2019. He tolerated the procedure well. There is been no nausea or vomiting postprocedure either. He has some bilateral lower extremity swelling. He is waking up short of breath at night. Generally feels tired and weak. Not able to do much. His last BUN and creatinine were 117 and 6.50 mg/dL from September. PAST MEDICAL HISTORY Past Medical History: Diagnosis Date ??? Acute embolism and thrombosis of unspecified deep veins of unspecified lower extremity ??? Anxiety disorder ??? Chronic kidney disease (CKD) ??? Essential (primary) hypertension ??? Gout ??? Heart failure ??? Hyperlipidemia ??? Osteoarthritis ??? Polyneuropathy ??? Sleep apnea ??? Type 2 diabetes mellitus without complication PAST SURGICAL HISTORY Past Surgical History: Procedure Laterality Date ??? APPENDECTOMY ??? CARDIAC CATHETERIZATION ??? EYE SURGERY SOCIAL HISTORY Social History Tobacco Use ??? Smoking status: Never Smoker ??? Smokeless tobacco: Never Used Substance Use Topics ??? Alcohol use: No ??? Drug use: No FAMILY HISTORY Family History Problem Relation Age of Onset ??? Kidney disease Neg Hx MEDICATIONS Current Outpatient Medications Medication Sig Dispense Refill ??? ADMELOG 100 UNIT/ML injection ??? aspirin 81 MG chewable tablet Chew 81 mg. ??? atorvastatin (LIPITOR) 40 MG tablet 1 tab by mouth daily 0 ??? atorvastatin (LIPITOR) 80 MG tablet ??? calcitriol (ROCALTROL) 0.25 MCG capsule Take 0.25 mcg by mouth 1 (one) time each day ??? carvedilol (COREG) 25 MG tablet 1 tab 2 times daily 0 ??? cetirizine (ZyrTEC) 10 MG tablet Take 10 mg by mouth. ??? Cholecalciferol (VITAMIN D3) 49805 units capsule 1 tab by mouth once weekly 0 ??? cloNIDine (CATAPRES) 0.1 MG tablet 1 tab 2 times daily 0 ??? clopidogrel (PLAVIX) 75 MG tablet 1 tab daily 0 ??? colchicine 0.6 MG tablet Take 0.6 mg by mouth. ??? ezetimibe (ZETIA) 10 MG tablet Take 10 mg by mouth 1 (one) time each day ??? Febuxostat (ULORIC) 40 MG tablet one tab daily 0 ??? furosemide (LASIX) 80 MG tablet Take 1 tablet (80 mg total) by mouth 2 (two) times a day 60 tablet 11 ??? hydrALAZINE (APRESOLINE) 100 MG tablet 1 tab 3 times daily 0 ??? isosorbide mononitrate (IMDUR) 30 MG 24 hr tablet 1 tab by mouth daily with 60mg 0 ??? metoprolol tartrate (LOPRESSOR) 100 MG tablet ??? nitroglycerin (NITROSTAT) 0.4 MG SL tablet PRN as directed 0 ??? raNITIdine (ZANTAC) 300 MG capsule 1 tab 2 times daily (Patient taking differently: Take 300 mgby mouth 1 (one) time each day ) 0 ??? ranolazine (RANEXA) 500 MG 12 hr tablet 1 tab by mouth every 12 hours 0 ??? selenium sulfide (SELSUN) 2.5 % shampoo ??? terazosin (HYTRIN) 2 MG capsule 1 tab once daily 0 No current facility-administered medications for this visit. ALLERGIES Allergies Allergen Reactions ??? Brilinta [Ticagrelor] REVIEW OF SYSTEMS Review of Systems No other new systemic issues VITALS BP 156/55 (BP Location: Left arm, Patient Position: Sitting, BP Cuff Size: Large adult) Pulse 56 Ht 5' 10 (1.778 m) Wt 273 lb (124 kg) BMI 39.17 kg/m?? BSA 2.47 m?? PHYSICAL EXAM Physical Exam Well-developed well-nourished obese white male, comfortable sitting up in an upright position, no pallor conjunctiva, moist oral mucosa, no cyanosis, JVD negative, regular rhythm, no gallop, no rub, diminished breath sounds, distended abdomen, PD catheter in place, nontender abdomen, edematous legs, alert oriented x3, no tremor RECENT LABS Lab Results Component Value Date EGFR 9 10/01/2019 CREATININE 6.50 10/01/2019 CHOL 210 11/07/2018 LDL 122 11/07/2018 HDL 34 11/07/2018 TRIG 268 11/07/2018 GLUCOSE 270 10/01/2019 PTH 341.7 04/02/2019 HCT 24.3 09/11/2019 BUN 117 10/01/2019 NA 137 10/01/2019 K 3.8 10/01/2019 CL 93 10/01/2019 CO2 26 10/01/2019 ALBUMIN 3.7 01/25/2019 CA 8.9 10/01/2019 IMAGES DPS CONVERSION - CONSULTATION REPORT NOTE PROCEDURE Ordered by an unspecified provider. ASSESSMENT AND PLAN Assessment/Plan Diagnoses and all orders for this visit: Stage 5 chronic kidney disease ([facility]) Type 2 diabetes mellitus with diabetic nephropathy ([facility]) Secondary hyperparathyroidism ([facility]) Hypertensive end stage renal disease ([facility]) Obstructive sleep apnea Anemia in chronic kidney disease Patient has tiredness and fatigue, with high BUN and creatinine, now a PD catheter has been placed.I described to him that first he will get the flush, then training will be in either next week or the following week. Following which he can return home. I explained to him that his blood sugars willgo high due to the peritoneal solution containing sugars. Insulin doses will need to be adjusted accordingly. Goal of hemoglobin A1c is still is keeping it less than 7. The patient is to be maintained on diuretics. He needs fluid management. Once a PET is done and optimal management with available peritoneal solutions, he may need consideration for Extraneal Questions answered. We will follow-up with dialysis next month. RICARDO REYES MD documented in this encounter Plan of Treatment Not on file documented as of this encounter Procedures Procedure Name Priority Date/Time Associated Diagnosis Comments BASIC METABOLIC PANEL (BMP) Routine 10/01/2019 documented in this encounter Results * Basic Metabolic Panel (BMP) (10/01/2019) eGFR, non 9 mL/min EXTERNAL LAB (NON-INTERFACE D) Glucose, Serum/Plasma 270 mg/dL EXTERNAL LAB (NON-INTERFACE D) Urea nitrogen, Serum/Plasma (BUN) 117 mg/dL EXTERNAL LAB (NON-INTERFACE D) Creatinine, Serum/Plasma 6.50 mg/dL EXTERNAL LAB (NON-INTERFACE D) Sodium, Serum/Plasma 137 mmol/L EXTERNAL LAB (NON-INTERFACE D) Potassium, Serum/Plasma 3.8 mmol/L EXTERNAL LAB (NON-INTERFACE D) Chloride, Serum/Plasma 93 mmol/L EXTERNAL LAB (NON-INTERFACE D) Carbon dioxide CO2), total, Serum/Plasma 26 mmol/L EXTERNAL LAB (NON-INTERFACE D) Calcium, Serum/Plasma 8.9 mg/dL EXTERNAL LAB (NON-INTERFACE D) Blood (Blood, Venous) 10/01/2019 Historical Provider MD LAB BLOOD ORDERAB LES EXTERNAL LAB (NON-INTERFACED) documented in this encounter Visit Diagnoses Diagnosis Stage 5 chronic kidney disease ([facility] Primary Type 2 diabetes mellitus with diabetic nephropathy (CMS-HCC) Secondary hyperparathyroidism (CMS-HCC) Hypertensive end stage renal disease ([facility]) Obstructive sleep apnea Anemia in chronic kidney disease documented in this encounter
--- OUTSIDE RECORDS SUMMARY | 2024-08-18 13:35 | XMS_ITS | Encounter Summary ---
Author Organization [facility] Address [address] [place] [address] Care Team Providers Care Test Rack Operator Name Role Phone Aditya Castro MD Primary Care Provider [phone] Reason for Visit * Reason Comments Follow Up Results * Eval and Treat (Routine) - Closed Specialty Diagnoses / Procedures Referred By Aguilar t Referred To Contact Diagnoses N18.4, D63.1 Procedures Office Visit Jhonatan Bellamy MD [address] [place] [address] Fernando Schmid MD [address] [place] [address] Referral ID Status Reason Start Date Expiration Date Visits Re quested Visits Authorized [id number] Closed 06/15/2018 09/13/2018 1 6 Encounter Details Date Type Department Care Team (Late st Contact Info) Description 09/11/2018 9:45 AM STAFF MIDWIFE/APPRENTICESHIP DIRECTOR Office Visit [facility] Oncology and Hematology - [place] [address] [facility] [address] [place] [address] Fernando Schmid MD [address] [place] [address] Anemia in stage 4 chronic [...] Sign Reading Time Taken Comments Blood Pressure 149/78 09/11/2018 9:47 AM STAFF MIDWIFE/APPRENTICESHIP DIRECTOR Pulse 64 09/11/2018 9:47 AM STAFF MIDWIFE/APPRENTICESHIP DIRECTOR Temperature 36.8 ??C (98.2 ??F) 09/11/2018 9:47 AM CS T Respiratory Rate - - Oxygen Saturation 96% 09/11/2018 9:47 AM STAFF MIDWIFE/APPRENTICESHIP DIRECTOR Inhaled Oxygen Concentration - - Weight 122.3 kg (269 lb 9.6 oz) 09/11/2018 9:47 AM STAFF MIDWIFE/APPRENTICESHIP DIRECTOR Height 177.8 cm (5' 10 ) 09/11/2018 9:47 AM STAFF MIDWIFE/APPRENTICESHIP DIRECTOR Body Mass Index 38.68 09/11/2018 9:47 AM STAFF MIDWIFE/APPRENTICESHIP DIRECTOR documented in this encounter Progress Notes * Fernando Schmid MD - 09/11/2018 10:36 AM CST HEMATOLOGY / ONCOLOGY PROGRESS NOTE Patient Identification: Name: Juvenal Daigle Age: 48 y.o. Sex: male : 1970 Subjective: HPI This is a pleasant 46-year-old obese male with a history of coronary [...] showed WBC 6.0 hemoglobin 9.5 platelet 240,000. @IMAGEIMP@ Assessment: Plan: Patient Active Problem List Diagnosis Date Noted ??? Anemia of chronic renal failure, stage 4 (severe) 06/05/2017 Anemia secondary to chronic renal failure stage IV. Patient has history of diabetes diagnosed in 1984 and subsequent development of chronic kidney disease 5 years ago. Patient has received Procrit injections in the hospital.Patient is on Procrit injection on every two-week basis for hemoglobin of less than 11.Labs reviewed. Hemoglobin is 9.5. He missed one dose of Procrit last week. He will continue Procrit on every 2 weeks basis. Continue oral iron as well. I will see him in 6 weeks. Right lower extremity DVT unprovoked diagnosed in February 2017. VQ scan done at that time came back unremarkable. Patient is on eliquis. Repeat Doppler studies done on September 10, 2018 showed persistentDVT involving the right popliteal vein. Since this is a chronic DVT and patient is already on Plavix I will discontinue eliquis. I will see him back in 6 weeks. Coronary artery disease status post stent placement in March 2017. Patient is on Plavix. 09/11/2018 Fernando Schmid MD F MIDWIFE/APPRENTICESHIP DIRECTOR documented in this encounter Plan of Treatment Not on file documented as of this encounter Results * (ABNORMAL) CBC WITH DIFFERENTIAL (10/23/2018) Blood Fernando Schmid MD HEMATOLOGY ORDERABLE S EXTERNAL LAB documented in this encounter Visit Diagnoses Diagnosis Anemia in stage 4 chronic kidney disease- Primary documented in this encounter Care Teams Test Rack Operator Relationship Specialty Start Date End Date Aditya Castro MD PCP - General Student in an Organized Health Care Education/Training Program 09/11/18 documented as of this encounter
--- OUTSIDE RECORDS SUMMARY | 2024-08-18 13:35 | XMS_ITS | Encounter Summary ---
Author Organization [facility] Address [address], [place] [address] Phone Care Team Providers Care Wood Shop Teacher Name Role Phone Unavailable Primary Care Provider Unavailabl e Reason for Visit * Reason Comments Med Refill Encounter Details Date Type Department Care Team (Late st Contact Info) Description 02/24/2020 Refill [facility] [address] [address] Leandro Reyes MD [address] [address] Social History Tobacco Use Types [...]
--- OUTSIDE RECORDS SUMMARY | 2024-08-18 13:35 | XMS_ITS | Encounter Summary ---
Author Organization [facility] Address [address] [place] [address] Care Team Providers Care Clerical Secretary Name Role Phone Jhonatan Bellamy MD Primary Care Provider [phone] Encounter Details Date Type Department Care Team (Late st Contact Info) Description 01/18/2018 Orders Only [facility] Oncology and Hematology - [place] [address] [phone] Tanna Costa RN Anemia of chronic renal [...] Associated Diagnosis Comments CBC WITH DIFFERENTIAL Stat 01/18/2018 Anemia of chronic renal failure, stage 4 (severe) documented in this encounter Results * CBC WITH DIFFERENTIAL (01/18/2018) Blood Fernando Schmid MD HEMATOLOGY ORDERABLE S EXTERNAL LAB documented in this encounter Visit Diagnoses Diagnosis Anemia of chronic renal failure, stage 4 (severe) documented in this encounter Care Teams Clerical Secretary Relationship Specialty Start Date End Date Jhonatan Bellamy MD [address] [place] [address] PCP - General Family Practice 06/05/17 09/10/18 documented as of this encounter
--- OUTSIDE RECORDS SUMMARY | 2024-08-18 13:35 | XMS_ITS | Encounter Summary ---
Author Organization [facility] Address [address] [place] [address] Care Team Providers Care Telemarketer Supervisor Name Role Phone Jhonatan Bellamy MD Primary Care Provider [phone] Encounter Details Date Type Department Care Team (Late st Contact Info) Description 02/26/2018 Orders Only [facility] Oncology and Hematology - [place] [address] [address] Tanna Costa RN Social History Tobacco Use Types Packs/Day Years [...] on filedocumented in this encounter Care Teams Telemarketer Supervisor Relationship Specialty Start Date End Date Jhonatan Bellamy MD [address] [place] [phone] PCP - General Family Practice 06/05/17 09/10/18 documented as of this encounter
--- OUTSIDE RECORDS SUMMARY | 2024-08-18 13:35 | XMS_ITS | Encounter Summary ---
Author Organization [facility] Address [address] [place] [address] Care Team Providers Care Player Piano Technician Name Role Phone Jhonatan Bellamy MD Primary Care Provider Reason for Referral * Outpatient Services (Routine) - Closed Specialty Diagnoses / Procedures Referred By Contjodi t Referred To Contact Diagnoses Anemia of chronic renal failure, stage 4 (severe) Chronic deep vein thrombosis (DVT) of right lower extremity, unspecified vein Procedures US VENOUS DOPPLER LEG RIGHT Fernando Schmid MD [address] [place] [address] [place] [address] [address] [place] [address] Referral ID Status Reason Start Date Expiration Date Visits Requested Visits Authorized [id number] Closed Ordering Department To Schedule 02/28/2018 03/31/2019 1 1 Reason for Visit * Reason Comments Follow Up Labs Encounter Details Date Type Department Care Team (Late st Contact Info) Description 02/28/2018 1:30 PM CDT Office Visit [facility] Oncology and Hematology [facility] [address] [place] [address] Fernando Schmid MD [address] [place] [address] Anemia of chronic renal failure, stage 4 (severe) (Primary Dx); Chronic deep vein thrombosis (DVT) of right lower extremity, unspecified vein Social History Tobacco Use Types Packs/Day Years [...] Sign Reading Time Taken Comments Blood Pressure 129/59 02/28/2018 1:33 PM CDT Pulse 56 02/28/2018 1:33 PM CDT Temperature 36.5 ??C (97.7 ??F) 02/28/2018 1:33 PM CD T Respiratory Rate 18 02/28/2018 1:33 PM CDT Oxygen Saturation 96% 02/28/2018 1:33 PM CDT Inhaled Oxygen Concentration - - Weight 118.8 kg (262 lb) 02/28/2018 1:33 PM CDT Height 177.8 cm (5' 10 ) 02/28/2018 1:33 PM CDT Body Mass Index 37.59 02/28/2018 1:33 PM CDT documented in this encounter Progress Notes * Fernando Schmid MD - 02/28/2018 2:49 PM CDT HEMATOLOGY / ONCOLOGY PROGRESS NOTE Patient Identification: Name: Juvenal Daigle Age: 47 y.o. Sex: male : 1970 Subjective: HPI [...] no confusion; no seizures Ext no edema Complain of occasional bleeding from the mouth is especially when he wakes up in the morning. Patient is using CPAP for sleep apnea. Objective: Vital signs in last 24 hours: [...] iron 50 iron saturation 19% ferritin 78. @IMAGEIMP@ Assessment: Plan: Patient Active Problem List [...] two-week basis for hemoglobin of less than 11. Patient received Procrit injection on February 06, 2018. He will continue Procrit 20,000 unit on every two-week basis. I have instructed him to start taking oral iron. I will see him back in 6 weeks after the Doppler studies. Right lower extremity DVT unprovoked diagnosed in February 2017. VQ scan done at that time came back unremarkable. Patient is on eliquis. 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 Patient will continue eliquis 5 mg twice a day. I will repeat the Doppler studies in 6 weeks. Coronary artery disease status post stent placement in March 2017. Patient is on aspirin along with Plavix. 02/28/2018 Fernando Schmid MD documented in this encounter Plan of Treatment Not on file documented as of this encounter Results * CBC WITH DIFFERENTIAL (04/16/2018) Blood Fernando Schmid MD HEMATOLOGY ORDERABLE S Performing Organization Address City/[facility]/ZIP Co de Phone Number EXTERNAL LAB * BASIC METABOLIC PANEL (04/16/2018) Blood Fernando Schmid MD CHEMISTRY ORDERABLES Performing Organization Address City/[facility] Co de Phone Number EXTERNAL LAB * US VENOUS DOPPLER LEG RIGHT (04/04/2018) Anatomical Region Laterality Modality Lower Extremity Other Fernando Schmid MD US ORDERABLES documented in this encounter Visit Diagnoses Diagnosis Anemia of chronic renal failure, stage 4 (severe)- Primary Chronic deep vein thrombosis (DVT) of right lower extremity, unspecified vein documented in this encounter Care Teams Player Piano Technician Relationship Specialty Start Date End Date Jhonatan Bellamy MD [address] [place] [place] [id number] PCP - General Family Practice 06/05/17 09/10/18 documented as of this encounter
--- OUTSIDE RECORDS SUMMARY | 2024-08-18 13:35 | XMS_ITS | Encounter Summary ---
Author Organization [facility] Address [address] [place] [address] Care Team Providers Care Jukebox Routeman Name Role Phone Jhonatan Bellamy MD Primary Care Provider [phone] Reason for Visit * Reason Comments Follow Up Encounter Details Date Type Department Care Team (Late st Contact Info) Description 01/18/2018 10:15 AM CDT Office Visit [facility] Oncology and Hematology - [place] [address] [facility] [address] [place] [address] Fernando Schmid MD [address] [facility] [address] [place] [address] Acute deep vein thrombosis (DVT) of distal end of right lower extremity (Primary Dx); History of anemia due to chronic kidney disease Social History Tobacco Use [...] Sign Reading Time Taken Comments Blood Pressure 146/46 01/18/2018 10:22 AM CDT Pulse 78 01/18/2018 10:22 AM CDT Temperature 37 ??C (98.6 ??F) 01/18/2018 10:22 AM CDT Respiratory Rate 18 01/18/2018 10:22 AM CDT Oxygen Saturation 95% 01/18/2018 10:22 AM CDT Inhaled Oxygen Concentration - - Weight 119.3 kg (263 lb) 01/18/2018 10:22 AM CDT Height 177.8 cm (5' 10 ) 01/18/2018 10:22 AM CDT Body Mass Index 37.74 01/18/2018 10:22 AM CDT documented in this encounter Progress Notes * Fernando Schmid MD - 01/18/2018 10:57 AM CDT HEMATOLOGY / ONCOLOGY PROGRESS NOTE [...] night sweats; no anorexia; no weight loss; feels much better and less tired today. Respiratory: No shortness of breath; no pleuritic [...] 4.9 hemoglobin 9.5 MCV 85.6 platelets 211,000. @IMAGEIMP@ Assessment: Plan: Patient Active Problem List [...] basis for hemoglobin of less than 11. Last Procrit injection was in the hospital on June 26.I will repeat iron studies andB12 level. Patient will start Procrit injection 20,000 unit on every two-week basis next week. I will see him back in 6 weeks. Right lower extremity DVT unprovoked diagnosed in February 2017. VQ scan done at that time came back unremarkable. Patient is on eliquis. 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 Patient will continue eliquis 5 mg twice a day. I will repeat the Doppler studies in 3 months. Coronary artery disease status post stent placement in March 2017. Patient is on aspirin along with Plavix. 01/18/2018 Fernando Schmid MD documented in this encounter Miscellaneous Notes * Addendum Note - Valerie Costa RN - 01/18/2018 10:15 AM CDTAddended by: VALERIE COSTA on: 01/18/2018 11:12 AM Modules accepted: Orders * Addendum Note - Valerie Costa RN - 01/18/2018 10:15 AM CDTAddended by: VALERIE COSTA on: 01/26/2018 08:57 AM Modules accepted: Orders documented in this encounter Plan of Treatment Not on file documented as of this encounter Procedures Procedure Name Priority Date/Time Associated Diagnosis Comments BASIC METABOLIC PANEL Stat 01/19/2018 History of anemia due to chronic kidney disease VITAMIN B12 AND FOLATE Routine 01/18/2018 History of anemia due to chronic kidney disease IRON, TIBC, AND PERCENT SATURATION Routine 01/18/2018 History of anemia due to chronic kidney disease FERRITIN Routine 01/18/2018 History of anemia due to chronic kidney disease documented in this encounter Results * FERRITIN (02/28/2018) Blood Fernando Schmid MD CHEMISTRY ORDERABLES Performing Organization Address [facility] de Phone Number [facility] * IRON, TIBC, AND PERCENT SATURATION (02/28/2018) Blood Fernando Schmid MD CHEMISTRY ORDERABLES Performing Organization Address [facility] de Phone Number EXTERNAL LAB * (ABNORMAL) BASIC METABOLIC PANEL (01/19/2018) Blood Fernando Schmid MD CHEMISTRY ORDERABLES Performing Organization Address [facility] de Phone Number EXTERNAL LAB * (ABNORMAL) VITAMIN B12 AND FOLATE (01/18/2018) Blood Fernando Schmid MD CHEMISTRY ORDERABLES Performing Organization Address [facility] de Phone Number EXTERNAL LAB * (ABNORMAL) IRON, TIBC, AND PERCENT SATURATION (01/18/2018) Blood Fernando Schmid MD CHEMISTRY ORDERABLES Performing Organization Address [facility] de Phone Number EXTERNAL LAB * FERRITIN (01/18/2018) Blood Fernando Schmid MD CHEMISTRY ORDERABLES Performing Organization Address [facility] de Phone Number EXTERNAL LAB documented in this encounter Visit Diagnoses Diagnosis Acute deep vein thrombosis (DVT) of distal end of right lower extremity- Primary History of anemia due to chronic kidney disease documented in this encounter Care Teams Jukebox Routeman Relationship Specialty Start Date End Date Jhonatan Bellamy MD [address] [place] [address] PCP - General Family Practice 06/05/17 09/10/18 documented as of this encounter
--- OUTSIDE RECORDS SUMMARY | 2024-08-18 13:35 | XMS_ITS | Encounter Summary ---
Author Organization [facility] Address [address] [place] [address] Care Team Providers Care Gear Tooth Lapping Machine Operator Name Role Phone Aditya Castro MD Primary Care Provider [phone] Reason for Visit * Reason Comments Follow Up * Eval and Treat (Routine) - Closed Specialty Diagnoses / Procedures Referred By Contjodi t Referred To Contact Oncology Diagnoses N18.4 Procedures Office Visit Level [id number] Aditya Castro MD [address] [place] [address] Fernando Schmid MD [email or web address] [place] [address] Referral ID Status Reason Start Date Expiration Date Visits Re quested Visits Authorized [id number] Closed 01/29/2019 04/29/2019 1 6 Encounter Details Date Type Department Care Team (Late st Contact Info) Description 01/29/2019 10:15 AM CDT Office Visit [facility] Oncology and Hematology - [place] [address] [address] Fernando Schmid MD [address] [facility] [address] [place] [address] Anemia in stage 4 chronic kidney [...] Sign Reading Time Taken Comments Blood Pressure 132/58 01/29/2019 10:15 AM CDT Pulse - - Temperature 36.8 ??C (98.2 ??F) 01/29/2019 1 0:15 AM CDT Respiratory Rate 18 01/29/2019 10:1 5 AM CDT Oxygen Saturation 96% 01/29/2019 10: 15 AM CDT Inhaled Oxygen Concentration - - Weight 123.5 kg (272 lb 3.2 oz) 019 10:15 AM CDT Height 177.8 cm (5' 10 ) 01/29/2019 10: 15 AM CDT Body Mass Index 39.06 01/29/2019 10:15 AM CDT documented in this encounter Progress Notes * Fernando Schmid MD - 01/29/2019 11:46 AM CDT HEMATOLOGY / ONCOLOGY PROGRESS NOTE Patient Identification: Name: Juvenal Daigle Age: 48 y.o. Sex: male : 1970 Subjective: HPI This is a 48-year-old obese male with history of coronary artery disease status post stent placement in March 2017 along with history of chronic kidney disease stage IV. He was diagnosed to have right lower extremity DVT in February 2017. Patient started Procrit injection in June 2017 due to anemia of chronic kidney disease. Patient is in the office today for continuation of Procrit injection. He is also taking oral iron. He feels slightly tired. Denies any bleeding and bruising. No chest pain and shortness of breath. Interval History: Patient was discharged home on July 04, 2017. Patient received Procrit injection in the hospital on June 26, 2017. Patient also received one unit of packed red blood cell transfusion in the hospital on June 29, 2017. Review of system Constitutional: No fever; no night sweats; no anorexia; no weight loss; denies any excessive tiredness and fatigue. Respiratory: No shortness of breath; no pleuritic [...] no confusion; no seizures Ext no edema 12 point review of system was reviewed. Objective: Vital signs in last 24 hours: As per nursing note Exam: Gen: NAD Lungs: Clear Cardiac: S1 and S2 without murmurs or gallops Abd: Soft, tender, no hepatomegally, no masses Extr: No LE edema Examination as above. Scheduled Meds:@MEDSSCHEDULED@ Continuous Infusions:@MEDSINFUSIONS@ Data Review: PATH [...] W BC 3.9 hemoglobin 10 platelet 222,000 Labs from January 29 showed WBC 4.9 hemoglobin 9.2 platelet 282,000 @IMAGEIMP@ Assessment: Plan: Patient Active Problem List Diagnosis Date Noted ??? Anemia of chronic renal failure, stage 4 (severe) 06/05/2017 Anemia secondary to chronic renal failure stage IV. Patient has history of diabetes diagnosed in 1984 and subsequent development of chronic kidney disease 5 years ago. Labs reviewed. Hemoglobin has improved to 9.2 from 8.8 previously. He will continue Procrit 20,000 unit on a biweekly basis. He will also continue oral iron once a day. I will see him back in 3 months with repeat labs. History of right lower extremity DVT. Eliquis has been discontinued as the last Doppler study showed chronic DVT. Patient will continue Plavix. No evidence of bleeding. Coronary artery disease status post stent placement in March 2017. Patient is on Plavix. Chronic kidney disease stage IV. Patient has been followed by Dr. Reyes. TOBACCO COUNSELING He is not a tobacco user. 01/29/2019 Fernando Schmid MD documented in this encounter Plan of Treatment Not on file documented as of this encounter Results * (ABNORMAL) BASIC METABOLIC PANEL (05/01/2019) Blood Fernando Schmid MD CHEMISTRY ORDERABLES Performing Organization Address City/[facility] Co de Phone Number EXTERNAL LAB * (ABNORMAL) CBC WITH DIFFERENTIAL (05/01/2019) Blood Fernando Schmid MD HEMATOLOGY ORDERABLE S EXTERNAL LAB documented in this encounter Visit Diagnoses Diagnosis Anemia in stage 4 chronic kidney disease- Primary documented in this encounter Care Teams Gear Tooth Lapping Machine Operator Relationship Specialty Start Date End Date Aditya Castro MD PCP - General Student in an Organized Health Care Education/Training Program 09/11/18 documented as of this encounter
--- OUTSIDE RECORDS SUMMARY | 2024-08-18 13:35 | XMS_ITS | Encounter Summary ---
Author Organization [facility] Address [address] [place] [address] Care Team Providers Care Health Care Sanitary Technician Name Role Phone Jhonatan Bellamy MD Primary Care Provider Encounter Details Date Type Department Care Team (Late st Contact Info) Description 03/14/2018 Orders Only [facility] Oncology and Hematology - [place] [address] [phone] Tanna Costa RN Anemia of chronic renal [...] Associated Diagnosis Comments CBC WITH DIFFERENTIAL Stat 03/16/2018 Anemia of chronic renal failure, stage 4 (severe) documented in this encounter Results * CBC WITH DIFFERENTIAL (03/16/2018) Blood Fernando Schmid MD HEMATOLOGY ORDERABLE S EXTERNAL LAB documented in this encounter Visit Diagnoses Diagnosis Anemia of chronic renal failure, stage 4 (severe) documented in this encounter Care Teams Health Care Sanitary Technician Relationship Specialty Start Date End Date Jhonatan Bellamy MD [address] [place] [address] PCP - General Family Practice 06/05/17 09/10/18 documented as of this encounter
--- OUTSIDE RECORDS SUMMARY | 2024-08-18 13:35 | XMS_ITS | Encounter Summary ---
Author Organization [facility] Address [address] [place] [address] Care Team Providers Care Line Fixer Name Role Phone Jhonatan Bellamy MD Primary Care Provider [phone] Reason for Referral * Radiology Services (Routine) - Closed Specialty Diagnoses / Procedures Referred By Tonioac t Referred To Contact Diagnoses Chronic deep vein thrombosis (DVT) of right lower extremity, unspecified vein Procedures US VENOUS DOPPLER LEG RIGHT Fernando Schmid MD [address] [place] [address] [address] Referral ID Status Reason Start Date Expiration Date Visits Requested Visits Authorized [id number] Closed Ordering Department To Schedule 06/15/2018 07/16/2019 1 1 Reason for Visit * Reason Comments Follow Up Results * Eval and Treat (Routine) - Closed Specialty Diagnoses / Procedures Referred By Contjodi t Referred To Contact Diagnoses N18.4, D63.1 Procedures Office Visit Jhonatan Bellamy MD [address] [place] [address] Fernando Schmid MD [address] [place] [address] Referral ID Status Reason Start Date Expiration Date Visits Re quested Visits Authorized [id number] Closed 06/15/2018 09/13/2018 1 6 Encounter Details Date Type Department Care Team (Late st Contact Info) Description 06/15/2018 9:00 AM CDT Office Visit [facility] Oncology and Hematology - [place] [address] [facility] [address] [place] [address] Fernando Schmid MD [address] [facility] [address] [place] [address] Chronic deep vein thrombosis (DVT) of right lower extremity, unspecified vein (Primary Dx) Social History Tobacco Use Types [...] Sign Reading Time Taken Comments Blood Pressure 140/73 06/15/2018 9:12 AM CDT Pulse 61 06/15/2018 9:12 AM CDT Temperature 36.5 ??C (97.7 ??F) 06/15/2018 9:12 AM CD T Respiratory Rate - - Oxygen Saturation 97% 06/15/2018 9:12 AM CDT Inhaled Oxygen Concentration - - Weight 117.8 kg (259 lb 12.8 oz) 06/15/2018 9:12 AM CDT Height 177.8 cm (5' 10 ) 06/15/2018 9:12 AM CDT Body Mass Index 37.28 06/15/2018 9:12 AM CDT documented in this encounter Progress Notes * Fernando Schmid MD - 06/15/2018 11:02 AM CDT HEMATOLOGY / ONCOLOGY PROGRESS NOTE [...] with WBC 5.1 hemoglobin 10.2 platelet 234,000. @IMAGEIMP@ Assessment: Plan: Patient Active Problem List [...] continue Procrit 20,000 unit on every two-week basis.He will continue oral iron. Hemoglobin stable at 10.2 today. Right lower extremity DVT unprovoked diagnosed in February 2017. VQ scan done at that time came back unremarkable. Patient is on eliquis. 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 The Doppler studies done on April 04 showed persistent right lower extremity popliteal vein thrombosis. Patient will continue eliquis 5 mg twice a day. I will repeat Doppler studies in 3 months. Coronary artery disease status post stent placement in March 2017. Patient is on Plavix. 06/15/2018 Fernando Schmid MD documented in this encounter Plan of Treatment Not on file documented as of this encounter Results * CBC WITH DIFFERENTIAL (09/11/2018) Blood Fernando Schmid MD HEMATOLOGY ORDERABLE S Performing Organization Address City/[facility]/ZIP Co de Phone Number EXTERNAL LAB * (ABNORMAL) BASIC METABOLIC PANEL (09/11/2018) Blood Fernando Schmid MD CHEMISTRY ORDERABLES EXTERNAL LAB * US VENOUS DOPPLER LEG RIGHT (09/10/2018) Anatomical Region Laterality Modality Lower Extremity Other Fernando Schmid MD ORDERABLES documented in this encounter Visit Diagnoses Diagnosis Chronic deep vein thrombosis (DVT) of right lower extremity, unspecified vein- Primary documented in this encounter Care Teams Line Fixer Relationship Specialty Start Date End Date Jhonatan Bellamy MD [address] [place] [address] PCP - General Family Practice 06/05/17 09/10/18 documented as of this encounter
--- OUTSIDE RECORDS SUMMARY | 2024-08-18 13:35 | XMS_ITS | Encounter Summary ---
Author Organization [facility] Address [address] [place] [address] Care Team Providers Care Control Panel Tester Name Role Phone Jhonatan Bellamy MD Primary Care Provider [phone] Encounter Details Date Type Department Care Team (Late st Contact Info) Description 01/22/2018 Orders Only [facility] Oncology and Hematology - [place] [address] [address] Tanna Costa RN Social History [...] on filedocumented in this encounter Care Teams Control Panel Tester Relationship Specialty Start Date End Date Jhonatan Bellamy MD [address] [place] [phone] PCP - General Family Practice 06/05/17 09/10/18 documented as of this encounter
--- OUTSIDE RECORDS SUMMARY | 2024-08-18 13:35 | XMS_ITS | Encounter Summary ---
Author Organization [facility] Address [address] [place] [address] Care Team Providers Care Plastic Surgery Specialist Name Role Phone Aditya Castro MD Primary Care Provider [phone] Encounter Details Date Type Department Care Team (Late st Contact Info) Description 12/05/2018 Orders Only [facility] Oncology and Hematology - [place] [address] [facility] [address] [place] [address] Fernando Schmid MD [address] [facility] [address] [place] [address] Anemia in stage 4 chronic [...] Associated Diagnosis Comments CBC WITH DIFFERENTIAL Stat 12/04/2018 Anemia in stage 4 chronic kidney disease documented in this encounter Results * (ABNORMAL) CBC WITH DIFFERENTIAL (12/04/2018) Blood Fernando Schmid MD HEMATOLOGY ORDERABLE S NON [facility] documented in this encounter Visit Diagnoses Diagnosis Anemia in stage 4 chronic kidney disease documented in this encounter Care Teams Plastic Surgery Specialist Relationship Specialty Start Date End Date Aditya Castro MD PCP - General Student in an Organized Health Care Education/Training Program 09/11/18 documented as of this encounter
--- OUTSIDE RECORDS SUMMARY | 2024-08-18 13:35 | XMS_ITS | Encounter Summary ---
Author Organization [facility] Address [address] [place] [address] Care Team Providers Care Director Medical Name Role Phone Jhonatan Bellamy MD Primary Care Provider [phone] Reason for Visit * Reason Comments Medication Refill Encounter Details Date Type Department Care Team (Late st Contact Info) Description 08/14/2018 Refill [facility] Oncology and Hematology - [place] [address] [email or web address] [address] [place] [address] Fernando Schmid MD [address] [facility] [address] [place] [address] Social History Tobacco Use Types [...] on filedocumented in this encounter Care Teams Director Medical Relationship Specialty Start Date End Date Jhonatan Bellamy MD [address] [place] [address] PCP - General Family Practice 06/05/17 09/10/18 documented as of this encounter
--- OUTSIDE RECORDS SUMMARY | 2024-08-18 13:35 | XMS_ITS | Encounter Summary ---
Author Organization [facility] Address [address] [place] [address] Phone Care Team Providers Care Community Outreach Advocate Name Role Phone Unavailable Primary Care Provider Unavailabl e Reason for Visit * Reason Comments Med Refill Encounter Details Date Type Department Care Team (Late st Contact Info) Description 01/25/2019 Refill [facility] [address] [facility] 1 [place] [address] Leandro Reyes MD [address] [address] Social History Tobacco Use Types [...]
--- OUTSIDE RECORDS SUMMARY | 2024-08-18 13:35 | XMS_ITS | Encounter Summary ---
Author Organization [facility] Address [address] [place] [address] Care Team Providers Care Workers Compensation Examiner Name Role Phone Jhonatan Bellamy MD Primary Care Provider [phone] Encounter Details Date Type Department Care Team (Late st Contact Info) Description 06/15/2018 Orders Only [facility] Oncology and Hematology - [place] [address] [phone] Tanna Costa RN Anemia of chronic renal [...] Associated Diagnosis Comments CBC WITHOUT DIFFERENTIAL Routine 06/15/2018 Anemia of chronic renal failure, stage 4 (severe) documented in this encounter Results * CBC WITHOUT DIFFERENTIAL (06/15/2018) Blood Fernando Schmid MD HEMATOLOGY ORDERABLE S EXTERNAL LAB documented in this encounter Visit Diagnoses Diagnosis Anemia of chronic renal failure, stage 4 (severe) documented in this encounter Care Teams Workers Compensation Examiner Relationship Specialty Start Date End Date Jhonatan Bellamy MD [address] [place] [address] PCP - General Family Practice 06/05/17 09/10/18 documented as of this encounter
--- OUTSIDE RECORDS SUMMARY | 2024-08-18 13:35 | XMS_ITS | Encounter Summary ---
Author Organization [facility] Address [address] [place] [address] Care Team Providers Care Cloth Trimmer Hand Name Role Phone Jhonatan Bellamy MD Primary Care Provider [phone] Encounter Details Date Type Department Care Team (Late st Contact Info) Description 07/03/2017 Orders Only [facility] Oncology and Hematology - [place] [address] [phone] Tanna Costa, RN Anemia of chronic renal failure, stage [...] Associated Diagnosis Comments BASIC METABOLIC PANEL Routine 07/11/2017 Anemia of chronic renal failure, stage 4 (severe) CBC WITH DIFFERENTIAL Stat 07/10/2017 Anemia of chronic renal failure, stage 4 (severe) documented in this encounter Results * BASIC METABOLIC PANEL (07/11/2017) Blood Fernando Schmid MD CHEMISTRY ORDERABLES EXTERNAL LAB * (ABNORMAL) CBC WITH DIFFERENTIAL (07/10/2017) Blood Fernando Schmid MD HEMATOLOGY ORDERABLE S EXTERNAL LAB documented in this encounter Visit Diagnoses Diagnosis Anemia of chronic renal failure, stage 4 (severe) documented in this encounter Care Teams Cloth Trimmer Hand Relationship Specialty Start Date End Date Jhonatan Bellamy MD [address] [place] [address] PCP - General Family Practice 06/05/17 09/10/18 documented as of this encounter
--- OUTSIDE RECORDS SUMMARY | 2024-08-18 13:35 | XMS_ITS | Encounter Summary ---
Author Organization [facility] Address [address] [place] [address] Care Team Providers Care Brick Pointer Name Role Phone Jhonatan Bellamy MD Primary Care Provider [phone] Encounter Details Date Type Department Care Team (Late st Contact Info) Description 07/18/2018 Orders Only [facility] Oncology and Hematology - [place] [address] [facility] [address] [place] [address] Fernando Schmid MD [address] [facility] [address] [place] [address] Social History Tobacco Use Types [...] Associated Diagnosis Comments CBC WITH DIFFERENTIAL Routine 07/17/2018 documented in this encounter Results * CBC WITH DIFFERENTIAL (07/17/2018) Blood Fernando Schmid MD HEMATOLOGY ORDERABLE S [facility] documented in this encounter Visit Diagnoses Not on filedocumented in this encounter Care Teams Brick Pointer Relationship Specialty Start Date End Date Jhonatan Bellamy MD [address] [place] [address] PCP - General Family Practice 06/05/17 09/10/18 documented as of this encounter
--- OUTSIDE RECORDS SUMMARY | 2024-08-18 13:35 | XMS_ITS | Encounter Summary ---
Author Organization [facility] Address [address] [place] [address] Care Team Providers Care Inspector Firearms Name Role Phone Jhonatan Bellamy MD Primary Care Provider [phone] Encounter Details Date Type Department Care Team (Late st Contact Info) Description 02/20/2018 Orders Only [facility] Oncology and Hematology - [place] [address] [place] [address] Tanna Costa RN Anemia of chronic renal [...] (severe) documented in this encounter Care Teams Inspector Firearms Relationship Specialty Start Date End Date Jhonatan Bellamy MD [address] [place] [address] PCP - General Family Practice 06/05/17 09/10/18 documented as of this encounter
--- OUTSIDE RECORDS SUMMARY | 2024-08-18 13:35 | XMS_ITS | Encounter Summary ---
Author Organization [facility] Address [address] [place] [address] Care Team Providers Care Telecommunications Field Engineer Name Role Phone Jhonatan Bellamy MD Primary Care Provider [phone] Encounter Details Date Type Department Care Team (Late st Contact Info) Description 07/10/2017 Orders Only [facility] Oncology and Hematology - [place] [address] [facility] [address] [place] [address] Fernando Schmid MD [address] [facility] [address] [place] [address] Anemia of chronic renal failure, [...] Primary documented in this encounter Care Teams Telecommunications Field Engineer Relationship Specialty Start Date End Date Jhonatan Bellamy MD [address] [place] [address] PCP - General Family Practice 06/05/17 09/10/18 documented as of this encounter
--- OUTSIDE RECORDS SUMMARY | 2024-08-18 13:35 | XMS_ITS | Clinical Summary ---
Author Organization [facility] Address [address] [place] [address] Phone Care Team Providers Care Skein Spooler Name Role Phone Unavailable Primary Care Provider Unavailabl e Allergies Active Allergy Reactions Criticality Noted Date Comments Ticagrelor 12/26/2018 Medications Medication Sig Dispensed Refills Start Date End Date Status cloNIDine (CATAPRES) 0.1 MG tablet 1 tab 2 times daily 0 12/27/2017 Active nitroglycerin (NITROSTAT) 0.4 MG SL tablet PRN as directed 0 12/27/2017 Active clopidogrel (PLAVIX) 75 MG tablet 1 tab daily 0 12/27/2017 Active Cholecalciferol (VITAMIN D3) 36005 units capsule 1 tab by mouth once weekly 0 10/02/2018 Active isosorbide mononitrate (IMDUR) 30 MG 24 hr tablet 1 tab by mouth daily with 60mg 0 10/02/2018 Active raNITIdine (ZANTAC) 300 MG capsule 1 tab 2 times daily 0 12/27/2017 Active Additional Information Patient taking differently: 300 mgOralDaily, Reported on 10/29/2019 atorvastatin (LIPITOR) 40 MG tablet 1 tab by mouth daily 0 05/29/2018 Active hydrALAZINE (APRESOLINE) 100 MG tablet 1 tab 3 times daily 0 12/27/2017 Active terazosin (HYTRIN) 2 MG capsule 1 tab once daily 0 12/27/2017 Active Febuxostat (ULORIC) 40 MG tablet one tab daily 0 07/19/2017 Active carvedilol (COREG) 25 MG tablet 1 tab 2 times daily 0 12/27/2017 Active ranolazine (RANEXA) 500 MG 12 hr tablet 1 tab by mouth every 12 hours 0 05/29/2018 Active aspirin 81 MG chewable tablet Chew 81 mg. 11/24/2018 Active cetirizine (ZyrTEC) 10 MG tablet Take 10 mg by mouth. Active colchicine 0.6 MG tablet Take 0.6 mg by mouth. Active ezetimibe (ZETIA) 10 MG tablet Take 10 mg by mouth 1 (one) time each day Active ADMELOG 100 UNIT/ML injection 09/02/2019 Active metoprolol tartrate (LOPRESSOR) 100 MG tablet 09/12/2019 Active selenium sulfide (SELSUN) 2.5 % shampoo 09/04/2019 Active atorvastatin (LIPITOR) 80 MG tablet 10/02/2019 Active furosemide (LASIX) 40 MG tablet Take 2 tablets (80 mg total) by mouth 2 (two) times a day 120 tablet 5 11/18/2019 Active calcium acetate (PHOSLO) 667 MG capsule TAKE 1 CAPSULE BY MOUTH FOUR TIMES DAILY WITH MEALS AND SNACKS 120 capsule 11 11/19/2020 Active furosemide (LASIX) 80 MG tablet TAKE 1 TABLET(80 MG) BY MOUTH TWICE DAILY 60 tablet 11 12/24/2020 Active calcitriol (ROCALTROL) 0.25 MCG capsule TAKE 1 CAPSULE BY MOUTH EVERY DAY 30 capsule 11 12/30/2020 Active calcium acetate (PHOSLO) 667 MG capsule TAKE ONE CAPSULE BY MOUTH FOUR TIMES DAILY WITH MEALS AND SNACKS 120 capsule 11 12/23/2021 Active calcium acetate (PHOSLO) 667 MG capsule TAKE ONE CAPSULE BY MOUTH FOUR TIMES DAILY WITH MEALS AND SNACKS 120 capsule 11 12/23/2021 Active Active Problems Problem Noted Date Diagnosed Date Cramp 03/25/2020 Cramp in lower limb 03/25/2020 Obstructive sleep apnea 06/27/2019 Umbilical hernia 03/27/2019 Type 2 diabetes mellitus with diabetic nephropat hy 09/27/2018 Stage 5 chronic kidney disease 04/04/2018 Secondary hyperparathyroidism 12/25/2017 Hypertensive end stage renal disease 05/30/2016 Anemia in chronic kidney disease 05/30/2016 Immunizations Name Administration Dates Next Due Influenza TIV (IM) 07/11/2016 Family History Medical History Relation Comments Kidney disease Neg Hx Social History Tobacco Use Types Packs/Day Years [...] Mass Index 39.17 10/29/2019 10:50 AM CDT Plan of Treatment Health Maintenance Due Date Last Done Comments Influenza Vaccine (#1) 2024 06/04/2022, 2015
--- OUTSIDE RECORDS SUMMARY | 2024-08-18 13:35 | XMS_ITS | Encounter Summary ---
Author Organization [facility] Address [address] [place] [address] Care Team Providers Care Forestry Extension Specialist Name Role Phone Jhonatan Bellamy MD Primary Care Provider [phone] Reason for Referral * Outpatient Services (Routine) - Closed Specialty Diagnoses / Procedures Referred By Aguilar lora Referred To Contact Diagnoses Acute deep vein thrombosis (DVT) of distal end of right lower extremity Procedures US VENOUS DOPPLER LEG RIGHT Fernando Schmid MD [address] [employer] [address] [place] [address] Referral ID Status Reason Start Date Expiration Date Visits Requested Visits Authorized [id number] Closed Ordering Department To Schedule 07/10/2017 08/10/2018 1 1 NCT WRITING INSTRUCTOR * Eval and Treat (Routine) - Closed Specialty Diagnoses / Procedures Referred By Aguilar lora Referred To Contact Pulmonology Diagnoses Sleep apnea in adult Fernando Schmid MD [address] [employer] [address] [place] [address] Carla Hall MD [address] [facility] [address] [place] [address] Referral ID Status Reason Start Date Expiration Date V isits Requested Visits Authorized [id number] Closed CRS To Schedule (STL) 07/10/2017 07/10/2018 1 1 NCT WRITING INSTRUCTOR Reason for Visit * Reason Comments Follow Up Encounter Details Date Type Department Care Team (Late st Contact Info) Description 07/10/2017 1:00 PM ADJUNCT WRITING INSTRUCTOR Office Visit [facility] Oncology and Hematology - [place] [address] [facility] [address] [place] [address] Fernando Shcmid MD [address] [facility] [address] [place] [address] History of anemia due to chronic kidney disease (Primary Dx); Sleep apnea in adult; Acute deep vein thrombosis (DVT) of distal end of right lower extremity Social History Tobacco [...] Sign Reading Time Taken Comments Blood Pressure 143/63 07/10/2017 1:05 PM ADJUNCT WRITING INSTRUCTOR Pulse 69 07/10/2017 1:05 PM ADJUNCT WRITING INSTRUCTOR Temperature 36.8 ??C (98.2 ??F) 07/10/2017 1:05 PM CS T Respiratory Rate 16 07/10/2017 1:05 PM ADJUNCT WRITING INSTRUCTOR Oxygen Saturation - - Inhaled Oxygen Concentration - - Weight 115.1 kg (253 lb 11.2 oz) 07/10/2017 1:05 PM ADJUNCT WRITING INSTRUCTOR Height 177.8 cm (5' 10 ) 07/10/2017 1:05 PM ADJUNCT WRITING INSTRUCTOR Body Mass Index 36.4 07/10/2017 1:05 PM ADJUNCT WRITING INSTRUCTOR documented in this encounter Progress Notes * Fernando Schmid MD - 07/10/2017 1:43 PM CST HEMATOLOGY / ONCOLOGY PROGRESS NOTE Patient Identification: Name: Juvenal Daigle Age: 46 y.o. Sex: male : 1970 Subjective: HPI [...] saturation 13% TIBC 234 vitamin B12 334 @IMAGEIMP@ Assessment: Plan: Patient Active Problem List [...] injection was in the hospital on June 26. He will receive Procrit 20,000 units today. Continue ferrous sulfate 325 mg twice a day. Right lower extremity DVT unprovoked diagnosed in February 2017. VQ scan done at that time came back unremarkable. Patient is on eliquis. Repeat Doppler studies done on May 09 showed persistent right lower extremity DVT. I will continue eliquis for another 2 months and repeat the Doppler studies at that time. Coronary artery disease status post stent placement in March 2017. Patient is on aspirin along with Plavix. Patient had minimal bleeding from the dryness of the mouth when he wakes up in the morningafter using the BiPAP for sleep apnea. His hemoglobin remains quite stable. Hypertension. Patient has occasional lightheadedness and dizziness. He is on for antihypertensive. I have recommended him to discuss this with his primary care physician and magnetic locater. ? 07/10/2017 Fernando Schmid MD NCT WRITING INSTRUCTOR documented in this encounter Plan of Treatment Scheduled Orders Name Type Priority Associated Diagnoses Orde r Schedule BASIC METABOLIC PANEL Lab Routine History of anemia due to chronic kidney disease Expected: 09/04/2017 (Approximate), Expires: 07/10/2018 Scheduled Referrals Name Type Priority Associated Diagnoses Orde r Schedule AMB REFERRAL TO PULMONARY Outpatient Referral Routine Sleep apnea in adult Ordered: 07/10/2017 documented as of this encounter Results * US VENOUS DOPPLER LEG RIGHT (01/11/2018) Anatomical Region Laterality Modality Lower Extremity Other Fernando Schmid MD US ORDERABLES * (ABNORMAL) CBC WITH DIFFERENTIAL (08/25/2017) Blood Fernando Schmid MD HEMATOLOGY ORDERABLE S EXTERNAL LAB documented in this encounter Visit Diagnoses Diagnosis History of anemia due to chronic kidney disease- Primary Sleep apnea in adult Acute deep vein thrombosis (DVT) of distal end of right lower extremity documented in this encounter Care Teams Forestry Extension Specialist Relationship Specialty Start Date End Date Jhonatan Bellamy MD [address] [place] [address] PCP - General Family Practice 06/05/17 09/10/18 documented as of this encounter
--- OUTSIDE RECORDS SUMMARY | 2024-08-18 13:35 | XMS_ITS | Encounter Summary ---
Author Organization [facility] Address [address] [place] [address] Care Team Providers Care Sash Installer Name Role Phone Jhonatan Bellamy MD Primary Care Provider [phone] Encounter Details Date Type Department Care Team (Late st Contact Info) Description 02/28/2018 Orders Only [facility] Oncology and Hematology - [place] [address] [phone] Tanna Costa, RN Anemia of chronic renal failure, stage 4 (severe); History of anemia due to chronic kidney [...] Comments IRON, TIBC, AND PERCENT SATURATION Routine 02/28/2018 History of anemia due to chronic kidney disease CBC WITH DIFFERENTIAL Stat 02/28/2018 Anemia of chronic renal failure, stage 4 (severe) FERRITIN Routine 02/28/2018 History of anemia due to chronic kidney disease documented in this encounter Results * FERRITIN (02/28/2018) Blood Fernando Schmid MD CHEMISTRY ORDERABLES NON [facility] * IRON, TIBC, AND PERCENT SATURATION (02/28/2018) Blood Fernando Schmid MD CHEMISTRY ORDERABLES Performing Organization Address City/[facility] Co de Phone Number EXTERNAL LAB * (ABNORMAL) CBC WITH DIFFERENTIAL (02/28/2018) Blood Fernando Schmid MD HEMATOLOGY ORDERABLE S Performing Organization Address [facility] Co de Phone Number EXTERNAL LAB documented in this encounter Visit Diagnoses Diagnosis Anemia of chronic renal failure, stage 4 (severe) History of anemia due to chronic kidney disease documented in this encounter Care Teams Sash Installer Relationship Specialty Start Date End Date Jhonatan Bellamy MD [address] [facility] [place] [phone] PCP - General Family Practice 06/05/17 09/10/18 documented as of this encounter
--- OUTSIDE RECORDS SUMMARY | 2024-08-18 13:35 | XMS_ITS | Encounter Summary ---
Author Organization [facility]im[facility] Address [address], [place] [address] Phone Care Team Providers Care Yarn Mercerizer Operator Name Role Phone Unavailable Primary Care Provider Unavailabl e Reason for Visit * Reason Comments CKD Encounter Details Date Type Department Care Team (Late st Contact Info) Description 04/02/2019 1:40 PM CDT Office Visit [facility] [address] [address] Leandro Reyes MD 5[address] [facility] 1 [place] [address] Social History Tobacco Use Types Packs/Day [...] Sign Reading Time Taken Comments Blood Pressure 134/50 04/02/2019 1:39 PM CDT Pulse 74 04/02/2019 1:39 PM CDT Temperature - - Respiratory Rate - - Oxygen Saturation - - Inhaled Oxygen Concentration - - Weight 118 kg (260 lb) 04/02/2019 1:39 PM CDT Height 177.8 cm (5' 10 ) 04/02/2019 1:39 PM CDT Body Mass Index 37.31 04/02/2019 1:39 PM CDT documented in this encounter Plan of Treatment Pending Results Name Type Priority Associated Diagnoses Date /Time CBC (includes Differential/Platelets) Lab Routine 04/02/2019 Ferritin, Serum Lab Routine 9 Iron and TIBC, Serum Lab Routine 03/21 PTH Intact w/o Calcium, Serum Lab Routine 04/02/2019 Renal Function Panel (RFP) Lab Routine 04/02/2019 documented as of this encounter Visit Diagnoses Not on filedocumented in this encounter
--- OUTSIDE RECORDS SUMMARY | 2024-08-18 13:35 | XMS_ITS | Encounter Summary ---
Author Organization [facility] Address [address] [place] [address] Phone Care Team Providers Care Oil Well Drilling Manager Name Role Phone Unavailable Primary Care Provider Unavailabl e Reason for Visit * Reason Comments CKD Encounter Details Date Type Department Care Team ([facility] st Contact Info) Description 02/12/2019 1:00 PM CDT Office Visit [facility] [address] [place] [address] Leandro Reyes MD [address] [id number] Social History Tobacco Use Types Packs/Day Years [...] Sign Reading Time Taken Comments Blood Pressure 185/71 02/12/2019 1:16 PM CDT Pulse 71 02/12/2019 1:16 PM CDT Temperature - - Respiratory Rate - - Oxygen Saturation - - Inhaled Oxygen Concentration - - Weight 120 kg (264 lb) 02/12/2019 1:16 PM CDT Height 177.8 cm (5' 10 ) 02/12/2019 1:16 PM CDT Body Mass Index 37.88 02/12/2019 1:16 PM CDT documented in this encounter Plan of Treatment Pending Results Name Type Priority Associated Diagnoses Date /Time CBC (includes Differential/Platelets) Lab Routine 01/25/2019 PTH Intact w/o Calcium, Serum Lab Routine 01/25/2019 Renal Function Panel (RFP) Lab Routine 01/25/2019 documented as of this encounter Visit Diagnoses Not on filedocumented in this encounter
--- OUTSIDE RECORDS SUMMARY | 2024-08-18 13:35 | XMS_ITS | Encounter Summary ---
Author Organization [facility] Address [address], [place] [address] Phone Care Team Providers Care Motion Picture Director Name Role Phone Unavailable Primary Care Provider Unavailabl e Reason for Visit * Reason Comments Med Refill Encounter Details Date Type Department Care Team (Late st Contact Info) Description 12/25/2020 Refill [facility] [address] [place] [address] Leandro Reyes MD [address] [address] Social History Tobacco Use Types [...]
--- OUTSIDE RECORDS SUMMARY | 2024-08-18 13:35 | XMS_ITS | Encounter Summary ---
Author Organization [facility] Address [address], [place] [address] Phone Care Team Providers Care Manager Data Name Role Phone Unavailable Primary Care Provider Unavailabl e Reason for Visit * Reason Comments Med Refill Encounter Details Date Type Department Care Team (Late st Contact Info) Description 12/23/2021 Refill [facility] [address] [place] [address] Arabella Lo, RN VISITING [address] [address] Social History Tobacco Use Types Packs/Day Years [...]
--- OUTSIDE RECORDS SUMMARY | 2024-08-18 13:35 | XMS_ITS | Encounter Summary ---
Author Organization [facility] Address [address] [place] [address] Care Team Providers Care Court Liaison Name Role Phone Aditya Castro MD Primary Care Provider [phone] Reason for Visit * Reason Comments Medication Refill Encounter Details Date Type Department Care Team (Late st Contact Info) Description 09/08/[address] [facility] Oncology and Hematology - [place] [address] [facility] 200 [place] [address] Fernando Schmid MD [address] [facility] [address] [place] [address] Social History Tobacco Use Types [...] on filedocumented in this encounter Care Teams Court Liaison Relationship Specialty Start Date End Date Aditya Castro MD PCP - General Student in an Organized Health Care Education/Training Program 09/11/18 documented as of this encounter
--- OUTSIDE RECORDS SUMMARY | 2024-08-18 13:35 | XMS_ITS | Encounter Summary ---
Author Organization [facility] Address [address] [place] [address] Care Team Providers Care Spreader Box Operator Name Role Phone Jhonatan Bellamy MD Primary Care Provider [phone] Encounter Details Date Type Department Care Team (Late st Contact Info) Description 08/09/2017 Orders Only [facility] Oncology and Hematology - [place] [address] [facility] 200 [place] [address] Fernando Schmid MD [address] [facility] [address] [place] [address] Anemia of chronic renal failure, [...] Associated Diagnosis Comments CBC WITH DIFFERENTIAL Stat 08/07/2017 Anemia of chronic renal failure, stage 4 (severe) documented in this encounter Results * (ABNORMAL) CBC WITH DIFFERENTIAL (08/07/2017) Blood Fernando Schmid MD HEMATOLOGY ORDERABLE S EXTERNAL LAB documented in this encounter Visit Diagnoses Diagnosis Anemia of chronic renal failure, stage 4 (severe) documented in this encounter Care Teams Spreader Box Operator Relationship Specialty Start Date End Date Jhonatan Bellamy MD [address] [place] [address] PCP - General Family Practice 06/05/17 09/10/18 documented as of this encounter
--- OUTSIDE RECORDS SUMMARY | 2024-08-18 13:35 | XMS_ITS | Encounter Summary ---
Author Organization [facility] Address [address] [place] [address] Care Team Providers Care Senior Bi Developer Name Role Phone Jhonatan Bellamy MD Primary Care Provider [phone] Encounter Details Date Type Department Care Team (Late st Contact Info) Description 03/28/2018 Orders Only [facility] Oncology and Hematology - [place] [address] [phone] Tanna Costa RN Anemia of chronic renal [...] Associated Diagnosis Comments CBC WITH DIFFERENTIAL Stat 04/02/2018 Anemia of chronic renal failure, stage 4 (severe) documented in this encounter Results * CBC WITH DIFFERENTIAL (04/02/2018) Blood Fernando Schmid MD HEMATOLOGY ORDERABLE S EXTERNAL LAB documented in this encounter Visit Diagnoses Diagnosis Anemia of chronic renal failure, stage 4 (severe) documented in this encounter Care Teams Senior Bi Developer Relationship Specialty Start Date End Date Jhonatan Bellamy MD [address] [place] [address] PCP - General Family Practice 06/05/17 09/10/18 documented as of this encounter
--- OUTSIDE RECORDS SUMMARY | 2024-08-18 13:35 | XMS_ITS | Encounter Summary ---
Author Organization [facility] Address [address] [place] [address] Care Team Providers Care Antisqueak Filler Name Role Phone Jhonatan Bellamy MD Primary Care Provider [phone] Encounter Details Date Type Department Care Team (Late st Contact Info) Description 01/22/2018 Orders Only [facility] Oncology and Hematology - [place] [address] [address] Tanna Costa RN Social History [...] on filedocumented in this encounter Care Teams Antisqueak Filler Relationship Specialty Start Date End Date Jhonatan Bellamy MD [address] [place] [address] PCP - General Family Practice 06/05/17 09/10/18 documented as of this encounter
--- OUTSIDE RECORDS SUMMARY | 2024-08-18 13:35 | XMS_ITS | Encounter Summary ---
Author Organization [facility] Address [address] [place] [address] Care Team Providers Care Methods Study Analyst Name Role Phone Jhonatan Bellamy MD Primary Care Provider [phone] Encounter Details Date Type Department Care Team (Late st Contact Info) Description 01/12/2018 Orders Only [facility] Oncology and Hematology - [place] [address] [facility] 200 [place] [address] Fernando Schmid MD [address] [facility] [address] [place] [address] Acute deep vein thrombosis (DVT) [...] Name Priority Date/Time Associated Diagnosis Comments US VENOUS DOPPLER LEG RIGHT Routine 01/11/2018 Acute deep vein thrombosis (DVT) of distal end of right lower extremity documented in this encounter Results * US VENOUS DOPPLER LEG RIGHT (01/11/2018) Anatomical Region Laterality Modality Lower Extremity Other Fernando Schmid MD US ORDERABLES documented in this encounter Visit Diagnoses Diagnosis Acute deep vein thrombosis (DVT) of distal end of right lower extremity documented in this encounter Care Teams Methods Study Analyst Relationship Specialty Start Date End Date Jhonatan Bellamy MD [address] [place] [address] PCP - General Family Practice 06/05/17 09/10/18 documented as of this encounter
--- OUTSIDE RECORDS SUMMARY | 2024-08-18 13:35 | XMS_ITS | Encounter Summary ---
Author Organization [facility] Address [address] [place] [address] Phone Care Team Providers Care Clinical Product Specialist Name Role Phone Unavailable Primary Care Provider Unavailabl e Encounter Details Date Type Department Care Team (Late st Contact Info) Description 09/18/2019 Telephone [facility] [address] [facility] 1 [place] [address] Leandro Reyes MD 5[address] [facility] 1 [place] [address] Social History Tobacco Use Types [...] encounter Miscellaneous Notes * Telephone Encounter - Krystal Max - 09/18/2019 2:00 PM CST Patient has been referred to see Dr. Dockery for PD cath consult on Sep 25 @ 10 am at his [facility]. documented in this encounter Plan of Treatment Not on file documented as of this encounter Visit Diagnoses Not on filedocumented in this encounter
--- OUTSIDE RECORDS SUMMARY | 2024-08-18 13:35 | XMS_ITS | Encounter Summary ---
Author Organization [facility] Address [address] [place] [address] Care Team Providers Care Public Safety Officer Name Role Phone Jhonatan Bellamy MD Primary Care Provider [phone] Reason for Visit * Reason Onset Date Comments Medication Problem 01/22/2018 Encounter Details Date Type Department Care Team (Late st Contact Info) Description 01/22/2018 Telephone [facility] Oncology and Hematology - [place] [address] [facility] 200 [place] [address] Fernando Schmid MD [address] [facility] [address] [place] [address] Medication Problem Social History Tobacco Use Types Packs/Day Years [...] encounter Miscellaneous Notes * Telephone Encounter - Tanna Costa RN - 01/22/2018 4:23 PM CDT Pt called to report that he is out of Eliquis and needs prior auth. Pt has not had any rx since Monday. [facility] not sure if pt has secondary insurance. I called Medicaid , [place] [phone], pt no longers had MEDCO and pt will have meridian as of 02/18/18. Tanna Costa, RN documented in this encounter Plan of Treatment Not on file documented as of this encounter Visit Diagnoses Not on filedocumented in this encounter Care Teams Public Safety Officer Relationship Specialty Start Date End Date Jhonatan Bellamy MD [address] [place] [address] PCP - General Family Practice 06/05/17 09/10/18 documented as of this encounter
--- OUTSIDE RECORDS SUMMARY | 2024-08-18 13:35 | XMS_ITS | Encounter Summary ---
Author Organization [facility] Address [address] [place] [address] Care Team Providers Care Perfect Bind Machine Operator Name Role Phone Jhonatan Bellamy MD Primary Care Provider [phone] Encounter Details Date Type Department Care Team (Late st Contact Info) Description 08/25/2017 Orders Only [facility] Oncology and Hematology - [place] [address] [facility] [address] [place] [address] Fernando Schmid MD [address] [facility] [address] [place] [address] History of anemia due to [...] Associated Diagnosis Comments CBC WITH DIFFERENTIAL Routine 08/25/2017 History of anemia due to chronic kidney disease documented in this encounter Results * (ABNORMAL) CBC WITH DIFFERENTIAL (08/25/2017) Blood Fernando Schmid MD HEMATOLOGY ORDERABLE S EXTERNAL LAB documented in this encounter Visit Diagnoses Diagnosis History of anemia due to chronic kidney disease documented in this encounter Care Teams Perfect Bind Machine Operator Relationship Specialty Start Date End Date Jhonatan Bellamy MD [address] [place] [address] PCP - General Family Practice 06/05/17 09/10/18 documented as of this encounter
--- OUTSIDE RECORDS SUMMARY | 2024-08-18 13:35 | XMS_ITS | Encounter Summary ---
Author Organization [facility] Address [address] [place] [address] Phone Care Team Providers Care Bilingual Spanish Inbound Sales Name Role Phone Unavailable Primary Care Provider Unavailabl e Reason for Visit * Reason Onset Date Comments Med Refill 01/25/2019 Encounter Details Date Type Department Care Team (Late st Contact Info) Description 01/25/2019 Refill [facility] [address] [facility] [address] [place] [address] Anabel Kingsley RN Social History Tobacco Use Types Packs/Day [...] encounter Miscellaneous Notes * Telephone Encounter - Anabel Maynard RN - 01/25/2019 2:22 PM CDT Called in Uloric 40mg 1 tab once daily 30 day supply #30 with 2 refills to [facility] in [place] 6-7-19mm documented in this encounter Plan of Treatment Not on file documented as of this encounter Visit Diagnoses Not on filedocumented in this encounter
--- OUTSIDE RECORDS SUMMARY | 2024-08-18 13:35 | XMS_ITS | Encounter Summary ---
Author Organization [facility] Address [address] [place] [address] Care Team Providers Care Enroute Controller Name Role Phone Jhonatan Bellamy MD Primary Care Provider [phone] Encounter Details Date Type Department Care Team (Late st Contact Info) Description 01/23/2018 Orders Only [facility] Oncology and Hematology - [place] [address] [address] Tanna Costa RN Social History [...] on filedocumented in this encounter Care Teams Enroute Controller Relationship Specialty Start Date End Date Jhonatan Bellamy MD [address] [place] [address] PCP - General Family Practice 06/05/17 09/10/18 documented as of this encounter
--- OUTSIDE RECORDS SUMMARY | 2024-08-18 13:35 | XMS_ITS | Encounter Summary ---
Author Organization [facility] Address [address] [place] [address] Care Team Providers Care Radial Drill Operator Name Role Phone Jhonatan Bellamy MD Primary Care Provider Reason for Visit * Reason Comments Follow Up Encounter Details Date Type Department Care Team (Late st Contact Info) Description 04/16/2018 1:00 PM CDT Office Visit [facility] Oncology and Hematology - [place] [address] [facility] [address] [place] [address] Fernando Schmid MD [address] [facility] [address] [place] [address] Anemia of chronic renal failure, [...] Sign Reading Time Taken Comments Blood Pressure 122/65 04/16/2018 1:20 PM CDT Pulse 64 04/16/2018 1:20 PM CDT Temperature 36.9 ??C (98.4 ??F) 04/16/2018 1:20 PM CD T Respiratory Rate - - Oxygen Saturation 93% 04/16/2018 1:20 PM CDT Inhaled Oxygen Concentration - - Weight 117.9 kg (260 lb) 04/16/2018 1:20 PM CDT Height 177.8 cm (5' 10 ) 04/16/2018 1:20 PM CDT Body Mass Index 37.31 04/16/2018 1:20 PM CDT documented in this encounter Progress Notes * Fernando Schmid MD - 04/16/2018 2:17 PM CDT HEMATOLOGY / ONCOLOGY PROGRESS NOTE [...] iron saturation 19% ferritin 78. Labs from March 2070 showed WBC 5.7 hemoglobin 10.4 platelet 229,000. @IMAGEIMP@ Assessment: Plan: Patient Active Problem List [...] continue Procrit 20,000 unit on every two-week basis.She will continue oral iron. Hemoglobin stable at 10.4 today. Right lower extremity DVT unprovoked diagnosed in February 2017. VQ scan done at that time came back unremarkable. Patient is on eliquis. 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 The Doppler studies done on April 04 showed persistent right lower extremity popliteal vein thrombosis. Patient will continue eliquis 5 mg twice a day. Coronary artery disease status post stent placement in March 2017. Patient is on aspirin along with Plavix. 04/16/2018 Fernando Schmid MD documented in this encounter Plan of Treatment Not on file documented as of this encounter Results * CBC WITHOUT DIFFERENTIAL (06/15/2018) Blood Fernando Schmid MD HEMATOLOGY ORDERABLE S EXTERNAL LAB documented in this encounter Visit Diagnoses Diagnosis Anemia of chronic renal failure, stage 4 (severe)- Primary documented in this encounter Care Teams Radial Drill Operator Relationship Specialty Start Date End Date Jhonatan Bellamy MD [address] [place] [address] PCP - General Family Practice 06/05/17 09/10/18 documented as of this encounter
--- OUTSIDE RECORDS SUMMARY | 2024-08-18 13:35 | XMS_ITS | Encounter Summary ---
Author Organization [facility] Address [address] [place] [address] Care Team Providers Care Numerologist Name Role Phone Aditya Castro MD Primary Care Provider [phone] Encounter Details Date Type Department Care Team (Late st Contact Info) Description 09/10/2018 Orders Only [facility] Oncology and Hematology - [place] [address] [facility] [address] [place] [address] Fernando cShmid MD [address] [facility] [address] [place] [address] Chronic deep vein thrombosis (DVT) [...] Associated Diagnosis Comments CBC WITH DIFFERENTIAL Routine 09/11/2018 Chronic deep vein thrombosis (DVT) of right lower extremity, unspecified vein BASIC METABOLIC PANEL Routine 09/11/2018 Chronic deep vein thrombosis (DVT) of right lower extremity, unspecified vein US VENOUS DOPPLER LEG RIGHT Routine 09/10/2018 Chronic deep vein thrombosis (DVT) of right lower extremity, unspecified vein documented in this encounter Results * CBC WITH DIFFERENTIAL (09/11/2018) Blood Fernando Schmid MD HEMATOLOGY ORDERABLE S Performing Organization Address City/[facility] Co de Phone Number EXTERNAL LAB * (ABNORMAL) BASIC METABOLIC PANEL (09/11/2018) Blood Fernando Schmid MD CHEMISTRY ORDERABLES Performing Organization Address City/[facility] Co de Phone Number EXTERNAL LAB * US VENOUS DOPPLER LEG RIGHT (09/10/2018) Anatomical Region Laterality Modality Lower Extremity Other Fernando Schmid MD US ORDERABLES documented in this encounter Visit Diagnoses Diagnosis Chronic deep vein thrombosis (DVT) of right lower extremity, unspecified vein documented in this encounter Care Teams Numerologist Relationship Specialty Start Date End Date Aditya Castro MD PCP - General Student in an Organized Health Care Education/Training Program 09/11/18 documented as of this encounter
--- OUTSIDE RECORDS SUMMARY | 2024-08-18 13:35 | XMS_ITS | Encounter Summary ---
Author Organization [facility] Address [address] [place] [address] Care Team Providers Care Nutrient Management Specialist Name Role Phone Jhonatan Bellamy MD Primary Care Provider [phone] Encounter Details Date Type Department Care Team (Late st Contact Info) Description 02/06/2018 Orders Only [facility] Oncology and Hematology - [place] [address] [phone] Tanna Costa RN Anemia of chronic renal [...] Associated Diagnosis Comments CBC WITH DIFFERENTIAL Stat 02/06/2018 Anemia of chronic renal failure, stage 4 (severe) documented in this encounter Results * (ABNORMAL) CBC WITH DIFFERENTIAL (02/06/2018) Blood Fernando Schmid MD HEMATOLOGY ORDERABLE S EXTERNAL LAB documented in this encounter Visit Diagnoses Diagnosis Anemia of chronic renal failure, stage 4 (severe) documented in this encounter Care Teams Nutrient Management Specialist Relationship Specialty Start Date End Date Jhonatan Bellamy MD [address] [place] [phone] PCP - General Family Practice 06/05/17 09/10/18 documented as of this encounter
--- OUTSIDE RECORDS SUMMARY | 2024-08-18 13:35 | XMS_ITS | Encounter Summary ---
Author Organization [facility] Address [address] [place] [address] Care Team Providers Care Staff Services Manager Name Role Phone Aditya Castro MD Primary Care Provider [phone] Encounter Details Date Type Department Care Team (Late st Contact Info) Description 10/19/2018 Orders Only [facility] Oncology and Hematology - [place] [address] [phone] Tanna Costa RN Anemia in stage 4 chronic kidney [...] Associated Diagnosis Comments CBC WITH DIFFERENTIAL Routine 10/23/2018 Anemia in stage 4 chronic kidney disease documented in this encounter Results * (ABNORMAL) CBC WITH DIFFERENTIAL (10/23/2018) Blood Fernando Schmid MD HEMATOLOGY ORDERABLE S EXTERNAL LAB documented in this encounter Visit Diagnoses Diagnosis Anemia in stage 4 chronic kidney disease documented in this encounter Care Teams Staff Services Manager Relationship Specialty Start Date End Date Aditya Castro MD PCP - General Student in an Organized Health Care Education/Training Program 09/11/18 documented as of this encounter
--- OUTSIDE RECORDS SUMMARY | 2024-08-18 13:35 | XMS_ITS | Encounter Summary ---
Author Organization Address [address] [place] [address] Care Team Providers Care Environmental Technician Name Role Phone Jhonatan Bellamy MD Primary Care Provider [phone] Reason for Visit * Reason Onset Date Comments Medication Review 07/03/2017 Encounter Details Date Type Department Care Team (Late st Contact Info) Description 07/03/2017 Telephone [facility] Oncology and Hematology - [place] [address] [facility] 200 [place] [address] Fernando Schmid MD [address] [facility] [address] [place] [address] Medication Review Social History Tobacco Use Types Packs/Day Years [...] Telephone Encounter - Tanna Costa RN - 07/03/2017 11:04 AM CST Pt called to report that he took written rx for iron (poly Iron 150 mg) bit insurance will not cover. Pt purchased otc ferrous sulfate 150 mg(Iron 65 mg), ok for pt to take tid. Pt advised to take tid with meals and that vitamin c will help absorption. Pt will do this and report back if he has any problems. Pt has scheduled ov next week. Tanna Costa RN MATION SPECIALIST documented in this encounter Plan of Treatment Not on file documented as of this encounter Visit Diagnoses Not on filedocumented in this encounter Care Teams Environmental Technician Relationship Specialty Start Date End Date Jhonatan Bellamy MD [address] [place] [address] PCP - General Family Practice 06/05/17 09/10/18 documented as of this encounter
--- OUTSIDE RECORDS SUMMARY | 2024-08-18 13:35 | XMS_ITS | Encounter Summary ---
Author Organization [facility] Address [address] [place] [address] Care Team Providers Care Sheet Metal Assembler And Riveter Name Role Phone Jhonatan Bellamy MD Primary Care Provider [phone] Encounter Details Date Type Department Care Team (Late st Contact Info) Description 05/14/2018 Orders Only [facility] Oncology and Hematology - [place] [address] [phone] Tanna Costa RN Anemia of chronic renal [...] Associated Diagnosis Comments CBC WITH DIFFERENTIAL Stat 05/24/2018 Anemia of chronic renal failure, stage 4 (severe) documented in this encounter Results * CBC WITH DIFFERENTIAL (05/24/2018) Blood Fernando Schmid MD HEMATOLOGY ORDERABLE S EXTERNAL LAB documented in this encounter Visit Diagnoses Diagnosis Anemia of chronic renal failure, stage 4 (severe) documented in this encounter Care Teams Sheet Metal Assembler And Riveter Relationship Specialty Start Date End Date Jhonatan Bellamy MD [address] [place] [address] PCP - General Family Practice 06/05/17 09/10/18 documented as of this encounter
--- OUTSIDE RECORDS SUMMARY | 2024-08-18 13:35 | XMS_ITS | Encounter Summary ---
Author Organization [facility] Address [address] [place] [address] Care Team Providers Care Import/Export Freight Forwarder Name Role Phone Jhonatan Bellamy MD Primary Care Provider [phone] Reason for Visit * Reason Comments Follow Up * Eval and Treat (Routine) - Closed Specialty Diagnoses / Procedures Referred By Contact Referred To Contact Hematology and Oncology / Oncology Diagnoses Anemia DVT (deep venous thrombosis) NEW CONSULT LOW BLOOD CT, BLOOD CLOT RT. KNEE Procedures OFFICE VISIT NEW PATIENT Finn Bellamy MD [address] [place] [address] Fernando Schmid MD [address] [employer] [address] [place] [address] Referral ID Status Reason Start Date Expiration Date Visits Re quested Visits Authorized [id number] Closed 06/05/2017 07/06/2018 100 100 Encounter Details Date Type Department Care Team (Late st Contact Info) Description 06/05/2017 10:30 AM CDT Office Visit [facility] Oncology and Hematology - [place] [address] [facility] [address] [place] [address] Fernando Schmid MD [address] [employer] [address] [place] [address] Anemia of chronic renal failure, [...] Sign Reading Time Taken Comments Blood Pressure 125/58 06/05/2017 10:59 AM CDT Pulse 70 06/05/2017 10:59 AM CDT Temperature 36.8 ??C (98.2 ??F) 06/05/2017 10:59 AM C DT Respiratory Rate 11 06/05/2017 10:59 AM CDT Oxygen Saturation - - Inhaled Oxygen Concentration - - Weight 121.1 kg (267 lb) 06/05/2017 10:59 AM CDT Height 177.8 cm (5' 10 ) 06/05/2017 10:59 AM CDT Body Mass Index 38.31 06/05/2017 10:59 AM CDT documented in this encounter Progress Notes * Fernando Schmid MD - 06/05/2017 11:43 AM CDT HEMATOLOGY / ONCOLOGY PROGRESS NOTE [...] hospital on May 16. Interval History: Patient had labs done on June 02. Review of system Constitutional: No fever; no night sweats; no anorexia; no weight loss; complain of tiredness and fatigue. Respiratory: No shortness of [...] up in the morning. Patient is using BiPAP for sleep apnea. Objective: Vital signs in [...] Patient has received Procrit injections in the hospital. I will start him on Procrit 20,000 units on biweekly basis for hemoglobin of less than 11. I have instructed him to start taking ferrous sulfate 325 mg once a day. Patient will be back to see me in one month. Right lower extremity DVT unprovoked diagnosed in [...] this with his primary care physician and siderographist. ? 06/05/2017 Fernando Schmid MD documented in this encounter Plan of Treatment Not on file documented as of this encounter Results * BASIC METABOLIC PANEL (07/11/2017) Blood Fernando Schmid MD CHEMISTRY ORDERABLES Performing Organization Address City/[facility]/ZIP Co de Phone Number EXTERNAL LAB * (ABNORMAL) CBC WITH DIFFERENTIAL (07/10/2017) Blood Fernando Schmid MD HEMATOLOGY ORDERABLE S Performing Organization Address City/State/[facility] Co de Phone Number EXTERNAL LAB documented in this encounter Visit Diagnoses Diagnosis Anemia of chronic renal failure, stage 4 (severe) documented in this encounter Care Teams Import/Export Freight Forwarder Relationship Specialty Start Date End Date Jhonatan Bellamy MD [address] [facility] [place] [address] PCP - General Family Practice 06/05/17 09/10/18 documented as of this encounter
--- OUTSIDE RECORDS SUMMARY | 2024-08-18 13:35 | XMS_ITS | Encounter Summary ---
Author Organization [facility] Address [address] [place] [address] Care Team Providers Care Poured Pipe Maker Name Role Phone Jhonatan Bellamy MD Primary Care Provider [phone] Encounter Details Date Type Department Care Team (Late st Contact Info) Description 07/19/2018 Orders Only [facility] Oncology and Hematology - [place] [address] [address] Tanna Costa RN Social History [...] on filedocumented in this encounter Care Teams Poured Pipe Maker Relationship Specialty Start Date End Date Jhonatan Bellamy MD [address] [place] [address] PCP - General Family Practice 06/05/17 09/10/18 documented as of this encounter
--- OUTSIDE RECORDS SUMMARY | 2024-08-18 13:35 | XMS_ITS | Encounter Summary ---
Author Organization [facility] Address [address] [place] [address] Care Team Providers Care Water System Operator Name Role Phone Jhonatan Bellamy MD Primary Care Provider [phone] Encounter Details Date Type Department Care Team (Late st Contact Info) Description 07/24/2017 Orders Only [facility] Oncology and Hematology - [place] [address] [phone] Tanna Costa RN Anemia of chronic renal [...] Associated Diagnosis Comments CBC WITH DIFFERENTIAL Stat 07/24/2017 Anemia of chronic renal failure, stage 4 (severe) documented in this encounter Results * (ABNORMAL) CBC WITH DIFFERENTIAL (07/24/2017) Blood Fernando Schmid MD HEMATOLOGY ORDERABLE S EXTERNAL LAB documented in this encounter Visit Diagnoses Diagnosis Anemia of chronic renal failure, stage 4 (severe) documented in this encounter Care Teams Water System Operator Relationship Specialty Start Date End Date Jhonatan Bellamy MD [address] [place] [address] PCP - General Family Practice 06/05/17 09/10/18 documented as of this encounter
--- OUTSIDE RECORDS SUMMARY | 2024-08-18 13:35 | XMS_ITS | Encounter Summary ---
Author Organization [facility] Address [address] [place] [address] Care Team Providers Care Nursing Professor Name Role Phone Jhonatan Bellamy MD Primary Care Provider [phone] Encounter Details Date Type Department Care Team (Late st Contact Info) Description 04/30/[address] [facility] Oncology and Hematology - [place] [address] [phone] Tanna Costa RN Anemia of chronic renal [...] Associated Diagnosis Comments CBC WITH DIFFERENTIAL Stat 04/30/2018 Anemia of chronic renal failure, stage 4 (severe) documented in this encounter Results * (ABNORMAL) CBC WITH DIFFERENTIAL (04/30/2018) Blood Fernando Schmid MD HEMATOLOGY ORDERABLE S EXTERNAL LAB documented in this encounter Visit Diagnoses Diagnosis Anemia of chronic renal failure, stage 4 (severe) documented in this encounter Care Teams Nursing Professor Relationship Specialty Start Date End Date Jhonatan Bellamy MD [address] [place] [phone] PCP - General Family Practice 06/05/17 09/10/18 documented as of this encounter
--- OUTSIDE RECORDS SUMMARY | 2024-08-18 13:35 | XMS_ITS | Encounter Summary ---
Author Organization [facility] Address [address] [place] [address] Phone Care Team Providers Care Canvas Worker Apprentice Name Role Phone Unavailable Primary Care Provider Unavailabl e Reason for Visit * Reason Onset Date Comments Med Refill 02/18/2019 Encounter Details Date Type Department Care Team (Late st Contact Info) Description 02/18/2019 Refill [facility] [address] [facility], [address] [place] [address] Anabel Kingsley RN Social History Tobacco Use [...] Telephone Encounter - Anabel Maynard RN - 02/18/2019 10:38 AM CDT Called in script for calcitriol 0.25mcg 1 capsule once daily 30 day supply with [address] Armstrong note from 6-25-19 mm documented in this encounter Plan of Treatment Not on file documented as of this encounter Visit Diagnoses Not on filedocumented in this encounter
--- OUTSIDE RECORDS SUMMARY | 2024-08-18 13:35 | XMS_ITS | Encounter Summary ---
Author Organization [facility] Address [address] [place] [address] Care Team Providers Care Supervisor Cleaning And Annealing Name Role Phone Jhonatan Bellamy MD Primary Care Provider [phone] Reason for Visit * Reason Comments Medication Refill Encounter Details Date Type Department Care Team (Late st Contact Info) Description 06/22/2018 Refill [facility] Oncology and Hematology - [place] [address] [facility] [address] [place] [address] Fernando Schmid MD [address] [facility] [address] [place] [address] Social History Tobacco Use Types [...] Telephone Encounter - Tanna Costa RN - 06/22/2018 8:51 AM CDT rx refill approved. Tanna Costa RN documented in this encounter Plan of Treatment Not on file documented as of this encounter Visit Diagnoses Not on filedocumented in this encounter Care Teams Supervisor Cleaning And Annealing Relationship Specialty Start Date End Date Jhonatan Bellamy MD [address] [place] [address] PCP - General Family Practice 06/05/17 09/10/18 documented as of this encounter
--- OUTSIDE RECORDS SUMMARY | 2024-08-18 13:35 | XMS_ITS | Encounter Summary ---
Author Organization [facility] Address [address] [place] [address] Care Team Providers Care Renewable Energy Consultant Name Role Phone Aditya Castro MD Primary Care Provider [phone] Encounter Details Date Type Department Care Team (Late st Contact Info) Description 11/21/2018 Orders Only [facility] Oncology and Hematology - [place] [address] [facility] 200 [place] [address] Fernando Schmid MD [address] [facility] [address] [place] [address] Anemia in stage 4 chronic [...] Associated Diagnosis Comments CBC WITH DIFFERENTIAL Stat 11/21/2018 Anemia in stage 4 chronic kidney disease documented in this encounter Results * (ABNORMAL) CBC WITH DIFFERENTIAL (11/21/2018) Blood Fernando Schmid MD HEMATOLOGY ORDERABLE S NON [facility] documented in this encounter Visit Diagnoses Diagnosis Anemia in stage 4 chronic kidney disease documented in this encounter Care Teams Renewable Energy Consultant Relationship Specialty Start Date End Date Aditya Castro MD PCP - General Student in an Organized Health Care Education/Training Program 09/11/18 documented as of this encounter
--- OUTSIDE RECORDS SUMMARY | 2024-08-18 13:35 | XMS_ITS | Encounter Summary ---
Author Organization [facility] Address [address] [place] [address] Care Team Providers Care Jute Bag Sewer Name Role Phone Jhonatan Bellamy MD Primary Care Provider [phone] Encounter Details Date Type Department Care Team (Late st Contact Info) Description 06/05/2017 Orders Only [facility] Oncology and Hematology - [place] 2227 [facility] [address] [place] [address] Fernando Schmid MD 2227 [facility] [address] [place] [address] Social History Tobacco Use Types [...] Associated Diagnosis Comments CBC WITHOUT DIFFERENTIAL Routine 06/02/2017 documented in this encounter Results * CBC WITHOUT DIFFERENTIAL (06/02/2017) Blood Fernando Schmid MD HEMATOLOGY ORDERABLE S [facility] documented in this encounter Visit Diagnoses Not on filedocumented in this encounter Care Teams Jute Bag Sewer Relationship Specialty Start Date End Date Jhonatan Bellamy MD [address] [place] [address] PCP - General Family Practice 06/05/17 09/10/18 documented as of this encounter
--- OUTSIDE RECORDS SUMMARY | 2024-08-18 13:35 | XMS_ITS | Encounter Summary ---
Author Organization [facility] Address [address] [address] Phone Care Team Providers Care Hand Cigar Maker Name Role Phone Unavailable Primary Care Provider Unavailabl e Reason for Visit * Reason Comments Med Refill Encounter Details Date Type Department Care Team (Late st Contact Info) Description 11/19/2020 Refill [facility] [address] [place] [address] Leandro Reyes MD [address] [address] Social History Tobacco Use Types [...]
--- OUTSIDE RECORDS SUMMARY | 2024-08-18 13:35 | XMS_ITS | Encounter Summary ---
Author Organization [facility] Address [address], [place] [address] Phone Care Team Providers Care Inspector Grain Mill Products Name Role Phone Unavailable Primary Care Provider Unavailabl e Reason for Visit * Reason Comments Med Refill Encounter Details Date Type Department Care Team (Late st Contact Info) Description 11/14/2019 Refill [facility] [address] [address] Leandro Reyes MD [address] [address] Social History Tobacco Use Types [...]
--- OUTSIDE RECORDS SUMMARY | 2024-08-18 13:35 | XMS_ITS | Encounter Summary ---
Author Organization [facility] Address [address] [place] [address] Care Team Providers Care Business Continuity Planner Name Role Phone Jhonatan Bellamy MD Primary Care Provider [phone] Encounter Details Date Type Department Care Team (Late st Contact Info) Description 09/04/2017 Orders Only [facility] Oncology and Hematology - [place] [address] [address] Tanna Costa, RN History of anemia due to chronic kidney disease; Anemia of chronic renal [...] of anemia due to chronic kidney disease Anemia of chronic renal failure, stage 4 (severe) documented in this encounter Care Teams Business Continuity Planner Relationship Specialty Start Date End Date Jhonatan Bellamy MD [address] [place] [address] PCP - General Family Practice 06/05/17 09/10/18 documented as of this encounter
--- OUTSIDE RECORDS SUMMARY | 2024-08-18 13:35 | XMS_ITS | Encounter Summary ---
Author Organization [facility] Address [address] [place] [address] Care Team Providers Care Upholstery Covers Inspector Name Role Phone Jhonatan Bellamy MD Primary Care Provider [phone] Reason for Visit * Reason Comments Medication Refill Encounter Details Date Type Department Care Team (Late st Contact Info) Description 07/16/2018 Refill [facility] Oncology and Hematology - [place] 2227 [facility] 200 [place] [address] Fernando Schmid MD 2[address] [facility] [address] [place] [address] Social History Tobacco Use Types [...] on filedocumented in this encounter Care Teams Upholstery Covers Inspector Relationship Specialty Start Date End Date Jhonatan Bellamy MD [address] [place] [address] PCP - General Family Practice 06/05/17 09/10/18 documented as of this encounter
--- OUTSIDE RECORDS SUMMARY | 2024-08-18 13:35 | XMS_ITS | Encounter Summary ---
Author Organization [facility] Address [address] [place] [address] Care Team Providers Care Byproducts Operator Name Role Phone Jhonatan Bellamy MD Primary Care Provider [phone] Encounter Details Date Type Department Care Team (Late st Contact Info) Description 06/20/2018 Orders Only [facility] Oncology and Hematology - [place] 2227 [facility] 200 [place] [address] Fernando Schmid MD 2[address] [facility] [address] [place] [address] Social History Tobacco Use Types [...] Procedure Name Priority Date/Time Associated Diagnosis Comments HIV 1 ANTIBODY Routine 06/18/2018 documented in this encounter Results * HIV 1 ANTIBODY (06/18/2018) Blood Fernando Schmid MD CHEMISTRY ORDERABLES [facility] documented in this encounter Visit Diagnoses Not on filedocumented in this encounter Care Teams Byproducts Operator Relationship Specialty Start Date End Date Jhonatan Bellamy MD [address] [place] [address] PCP - General Family Practice 06/05/17 09/10/18 documented as of this encounter
--- OUTSIDE RECORDS SUMMARY | 2024-08-18 13:35 | XMS_ITS | Encounter Summary ---
Author Organization [facility] Address [address] [place] [address] Phone Care Team Providers Care Wad Lubricator Name Role Phone Unavailable Primary Care Provider Unavailabl e Reason for Visit * Reason Onset Date Comments Med Refill 02/13/2019 Encounter Details Date Type Department Care Team (Late st Contact Info) Description 02/13/2019 Refill [facility] 5[address] [facility], [address] [place] [address] Anabel Kingsley RN Social History Tobacco Use [...] Telephone Encounter - Anabel Maynard RN - 02/13/2019 8:53 AM CDT Calcitriol 0.25mcg 1 capsule on Monday and Monday day supply #15 with 2 refills 6-26-19 mm documented in this encounter Plan of Treatment Not on file documented as of this encounter Visit Diagnoses Not on filedocumented in this encounter
--- OUTSIDE RECORDS SUMMARY | 2024-08-18 13:35 | XMS_ITS | Encounter Summary ---
Author Organization [facility] Address [address], [place] [address] Phone Care Team Providers Care Racehorse Trainer Name Role Phone Unavailable Primary Care Provider Unavailabl e Reason for Visit * Reason Comments Med Refill Encounter Details Date Type Department Care Team (Late st Contact Info) Description 12/19/2020 Refill [facility] [address] [place] [address] Leandro Reyes MD [address] [address] Social History Tobacco Use Types [...]
--- OUTSIDE RECORDS SUMMARY | 2024-08-18 13:35 | XMS_ITS | Encounter Summary ---
Author Organization [facility] Address [address] [place] [address] Care Team Providers Care Pump Oiler Name Role Phone Jhonatan Bellamy MD Primary Care Provider [phone] Encounter Details Date Type Department Care Team (Late st Contact Info) Description 07/31/2018 Orders Only [facility] Oncology and Hematology - [place] [address] [place] [phone] Tanna Costa RN Anemia in stage 4 [...] Associated Diagnosis Comments CBC WITH DIFFERENTIAL Stat 07/31/2018 Anemia in stage 4 chronic kidney disease documented in this encounter Results * CBC WITH DIFFERENTIAL (07/31/2018) Blood Fernando Schmid MD HEMATOLOGY ORDERABLE S NON [facility] documented in this encounter Visit Diagnoses Diagnosis Anemia in stage 4 chronic kidney disease documented in this encounter Care Teams Pump Oiler Relationship Specialty Start Date End Date Jhonatan Bellamy MD [address] [place] [address] PCP - General Family Practice 06/05/17 09/10/18 documented as of this encounter
--- OUTSIDE RECORDS SUMMARY | 2024-08-18 13:35 | XMS_ITS | Encounter Summary ---
Author Organization [facility] Address [address] [place] [address] Care Team Providers Care Repair Manager Name Role Phone Jhonatan Bellamy MD Primary Care Provider [phone] Reason for Visit * Reason Comments Medication Refill Encounter Details Date Type Department Care Team (Late st Contact Info) Description 05/23/2018 Refill [facility] Oncology and Hematology - [place] 2227 [facility] 200 [place] [address] Fernando Schmid MD [address] [facility] [address] [place] [address] Social History Tobacco Use Types [...] encounter Miscellaneous Notes * Telephone Encounter - Travis Ledezma - 05/24/2018 5:[address] hickey documented in this encounter Plan of Treatment Not on file documented as of this encounter Visit Diagnoses Not on filedocumented in this encounter Care Teams Repair Manager Relationship Specialty Start Date End Date Jhonaatn Bellamy MD [address] [place] [address] PCP - General Family Practice 06/05/17 09/10/18 documented as of this encounter
--- OUTSIDE RECORDS SUMMARY | 2024-08-18 13:35 | XMS_ITS | Encounter Summary ---
Author Organization [facility] Address [address] [place] [address] Care Team Providers Care Customer Service Technician Name Role Phone Jhonatan Bellamy MD Primary Care Provider [phone] Reason for Visit * Reason Comments Follow Up Results * Eval and Treat (Routine) - Closed Specialty Diagnoses / Procedures Referred By Aguilar t Referred To Contact Diagnoses N18.4, D63.1 Procedures Office Visit Jhonatan Bellamy MD [address] [place] [address] Fernando Schmid MD [address] [place] [address] Referral ID Status Reason Start Date Expiration Date Visits Re quested Visits Authorized [id number] Closed 06/15/2018 09/13/2018 1 6 Encounter Details Date Type Department Care Team (Late st Contact Info) Description 07/17/2018 11:00 AM REINFORCING STEEL PLACER Office Visit [facility] Oncology and Hematology - [place] [address] [facility] 200 [place] [address] Frenando Schmid MD [address] [place] [address] Anemia of chronic renal failure, [...] Sign Reading Time Taken Comments Blood Pressure 162/75 07/17/2018 11:07 AM REINFORCING STEEL PLACER Pulse 60 07/17/2018 11:07 AM REINFORCING STEEL PLACER Temperature 36.7 ??C (98 ??F) 07/17/2018 11: 07 AM REINFORCING STEEL PLACER Respiratory Rate - - Oxygen Saturation 96% 07/17/2018 11: 07 AM REINFORCING STEEL PLACER Inhaled Oxygen Concentration - - Weight 120.1 kg (264 lb 11.2 oz) 2017 11:07 AM REINFORCING STEEL PLACER Height 177.8 cm (5' 10 ) 07/17/2018 11: 07 AM REINFORCING STEEL PLACER Body Mass Index 37.98 07/17/2018 11:07 AM REINFORCING STEEL PLACER documented in this encounter Progress Notes * Fernando Schmid MD - 07/17/2018 12:35 PM CST HEMATOLOGY / ONCOLOGY PROGRESS NOTE [...] showed WBC 6.2 hemoglobin 9.3 platelet 240,000. @IMAGEIMP@ Assessment: Plan: Patient Active [...] received Procrit injection on February 06, 2018. Labs reviewed that showed hemoglobin of 9.3. He will continue Procrit 20,000 unit on every two-week basis.He will continue oral iron. Right lower extremity DVT unprovoked diagnosed in [...] day. I will repeat Doppler studies in 2 months. I will see him back after repeat Doppler studies. Coronary artery disease status post stent placement in March 2017. Patient is on Plavix. 07/17/2018 Fernando Schmid MD FORCING STEEL PLACER documented in this encounter Plan of Treatment Not on file documented as of this encounter Visit Diagnoses Diagnosis Anemia of chronic renal failure, stage 4 (severe)- Primary Chronic deep vein thrombosis (DVT) of right lower extremity, unspecified vein documented in this encounter Care Teams Customer Service Technician Relationship Specialty Start Date End Date Jhonatan Bellamy MD [address] [place] [address] PCP - General Family Practice 06/05/17 09/10/18 documented as of this encounter
--- OUTSIDE RECORDS SUMMARY | 2024-08-18 13:35 | XMS_ITS | Encounter Summary ---
Author Organization [facility] Address [address] [place] [address] Care Team Providers Care Furnace Packer Name Role Phone Jhonatan Bellamy MD Primary Care Provider [phone] Encounter Details Date Type Department Care Team (Late st Contact Info) Description 08/24/2018 Orders Only [facility] Oncology and Hematology - [place] [address] [place] [phone] Tanna Costa RN Anemia in stage 4 [...] Associated Diagnosis Comments CBC WITH DIFFERENTIAL Stat 09/25/2018 Anemia in stage 4 chronic kidney disease documented in this encounter Results * CBC WITH DIFFERENTIAL (09/25/2018) Blood Fernando Schmid MD HEMATOLOGY ORDERABLE S NON [facility] documented in this encounter Visit Diagnoses Diagnosis Anemia in stage 4 chronic kidney disease documented in this encounter Care Teams Furnace Packer Relationship Specialty Start Date End Date Jhonatan Bellamy MD [address] [place] [phone] PCP - General Family Practice 06/05/17 09/10/18 documented as of this encounter
--- OUTSIDE RECORDS SUMMARY | 2024-08-18 13:35 | XMS_ITS | Encounter Summary ---
Author Organization [facility] Address [address] [place] [address] Care Team Providers Care Product Responsibility Liaison Name Role Phone Jhonatan Bellamy MD Primary Care Provider [phone] Encounter Details Date Type Department Care Team (Late st Contact Info) Description 04/04/2018 Orders Only [facility] Oncology and Hematology - [place] [facility] [facility] 200 [place] [address] Fernando Schmid MD 2227 [facility] [address] [place] [address] Anemia of chronic renal failure, stage 4 (severe); Chronic deep vein thrombosis (DVT) of right [...] Comments US VENOUS DOPPLER LEG RIGHT Routine 04/04/2018 Anemia of chronic renal failure, stage 4 (severe) Chronic deep vein thrombosis (DVT) of right lower extremity, unspecified vein documented in this encounter Results * US VENOUS DOPPLER LEG RIGHT (04/04/2018) Anatomical Region Laterality Modality Lower Extremity Other Fernando Schmid MD ORDERABLES documented in this encounter Visit Diagnoses Diagnosis Anemia of chronic renal failure, stage 4 (severe) Chronic deep vein thrombosis (DVT) of right lower extremity, unspecified vein documented in this encounter Care Teams Product Responsibility Liaison Relationship Specialty Start Date End Date Jhonatan Bellamy MD [address] [place] [address] PCP - General Family Practice 06/05/17 09/10/18 documented as of this encounter
--- OUTSIDE RECORDS SUMMARY | 2024-08-18 13:35 | XMS_ITS | Encounter Summary ---
Author Organization [facility] Address [address] [address] Phone Care Team Providers Care Recovery Room Nurse Name Role Phone Unavailable Primary Care Provider Unavailabl e Reason for Visit * Reason Comments Med Refill Encounter Details Date Type Department Care Team (Late st Contact Info) Description 07/04/2019 Refill [facility] [address] [address] Leandro Reyes MD [address] [address] Social History Tobacco Use Types [...]
--- OUTSIDE RECORDS SUMMARY | 2024-08-18 13:35 | XMS_ITS | Encounter Summary ---
Author Organization [facility] Address [address] [place] [address] Care Team Providers Care Ed Case Manager Name Role Phone Aditya Castro MD Primary Care Provider [phone] Encounter Details Date Type Department Care Team (Late st Contact Info) Description 01/11/2019 Orders Only [facility] Oncology and Hematology - [place] 2227 [facility] 200 [place] [address] Fernando Schmid MD 2227 [facility] [address] [place] [address] Anemia in stage 4 chronic [...] Associated Diagnosis Comments CBC WITH DIFFERENTIAL Routine 01/11/2019 Anemia in stage 4 chronic kidney disease BASIC METABOLIC PANEL Routine 01/11/2019 Anemia in stage 4 chronic kidney disease documented in this encounter Results * BASIC METABOLIC PANEL (01/11/2019) Blood Fernando Schmid MD CHEMISTRY ORDERABLES EXTERNAL LAB * (ABNORMAL) CBC WITH DIFFERENTIAL (01/11/2019) Blood Fernando Schmid MD HEMATOLOGY ORDERABLE S Performing Organization Address City/[facility] Co de Phone Number EXTERNAL LAB documented in this encounter Visit Diagnoses Diagnosis Anemia in stage 4 chronic kidney disease documented in this encounter Care Teams Ed Case Manager Relationship Specialty Start Date End Date Aditya Castro MD PCP - General Student in an Organized Health Care Education/Training Program 09/11/18 documented as of this encounter
--- OUTSIDE RECORDS SUMMARY | 2024-08-18 13:35 | XMS_ITS | Encounter Summary ---
Author Organization [facility] Address [address], [place] [address] Phone Care Team Providers Care Bookmaker'S Clerk Name Role Phone Unavailable Primary Care Provider Unavailabl e Reason for Visit * Reason Comments CKD Encounter Details Date Type Department Care Team (Latest Contact Info) Description 10/01/2019 2:40 PM LEAD ASSEMBLER Office Visit [facility] [address] [place] [id number] Ricardo Banuelos MD [address] [address] Stage 5 chronic kidney disease (CMS-HCC) (Primary Dx); Type 2 diabetes mellitus with diabetic nephropathy (CMS-HCC); Secondary hyperparathyroidism (CMS-HCC); Anemia in chronic kidney disease; Obstructive sleep apnea; Hypertensive end stage renal disease (CMS-HCC) Social History Tobacco Use Types Packs/Day Years [...] Sign Reading Time Taken Comments Blood Pressure 165/71 10/01/2019 1:51 PM LEAD ASSEMBLER Pulse 57 10/01/2019 1:51 PM LEAD ASSEMBLER Temperature - - Respiratory Rate - - Oxygen Saturation - - Inhaled Oxygen Concentration - - Weight 116 kg (256 lb) 10/01/2019 1:51 PM LEAD ASSEMBLER Height 177.8 cm (5' 10 ) 10/01/2019 1:51 PM LEAD ASSEMBLER Body Mass Index 36.73 10/01/2019 1:51 PM LEAD ASSEMBLER documented in this encounter Progress Notes * Ricardo Banuelos MD - 10/01/2019 2:40 PM CST Patient: Juvenal Daigle Birthdate: 1970 PCP: No primary care provider on file. Aditya Castro Reason for visit: Visit Date: 10/01/2019 CHIEF COMPLAINT CKD INTERIM HISTORY Juvenal Daigle is a 49 y.o. male presenting with a past medical history of Frequently to the bathroom but makes little urine. She is not short of breath. 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 Appetite is maintained. There is no nausea or vomiting. Generally otherwise feels okay. No urinary symptoms suggestive of an infection. Urinalysis from June is reviewed and there isno evidence for an infection at that time. She does have significant proteinuria of 500 mg/dL on the spot urine sample. Her current creatinine has increased from 1.64 to 2.07 mg/dL. Hemoglobin is 11.3 g/dL. Serum albumin of 3.5 g/dL. Intact PTH level of 119.5. She is on calcitriol therapy. . PAST MEDICAL HISTORY Past Medical History: Diagnosis [...] 1 tab by mouth daily 0 ??? calcitriol (ROCALTROL) 0.25 MCG capsule Take 0.25 mcg by mouth 1 (one) time each day ??? carvedilol (COREG) 25 MG tablet 1 tab 2 times daily 0 ??? cetirizine (ZyrTEC) 10 MG tablet Take 10 mg by mouth. ??? Cholecalciferol (VITAMIN D3) 20814 units capsule 1 tab by mouth once [...] MG tablet one tab daily 0 ??? ferrous sulfate 324 (65 Fe) MG EC tablet Take 324 mg by mouth 1 (one) time each day with breakfast. ??? furosemide (LASIX) 80 MG tablet Take 1 tablet (80 mg total) by mouth 2 (two) times a day 60 tablet 11 ??? gemfibrozil (LOPID) 600 MG tablet 1 tab by mouth daily 0 ??? hydrALAZINE (APRESOLINE) 100 MG tablet 1 tab 3 times daily 0 ??? hydrALAZINE (APRESOLINE) 50 MG tablet ??? isosorbide mononitrate (IMDUR) 30 MG 24 hr tablet 1 tab by mouth daily with 60mg 0 ??? metoprolol tartrate (LOPRESSOR) 100 MG tablet ??? nitroglycerin (NITROSTAT) 0.4 MG SL tablet PRN as directed 0 ??? phentermine 15 MG capsule Take 15 mg by mouth 1 (one) time each day before breakfast. ??? raNITIdine (ZANTAC) 300 MG capsule 1 tab 2 times daily 0 ??? ranolazine (RANEXA) 500 MG 12 hr tablet 1 tab by mouth every 12 hours 0 ??? selenium sulfide (SELSUN) 2.5 % shampoo ??? terazosin (HYTRIN) 2 MG capsule 1 tab once daily 0 No current facility-administered medications for this visit. ALLERGIES Allergies Allergen Reactions ??? Brilinta [Ticagrelor] VITALS BP 165/71 Pulse 57 Ht 5' 10 (1.778 m) Wt 256 lb (116 kg) BMI 36.73 kg/m?? BSA 2.39 m?? PHYSICAL EXAM Physical Exam Constitutional: He is oriented to person, place, and time. He appears well- developed and well-nourished. Eyes: Conjunctivae are normal. Neck: No JVD present. Cardiovascular: Normal rate, regular rhythm and normal heart sounds. Pulmonary/Chest: Effort normal and breath sounds normal. Abdominal: Soft. There is no tenderness. Musculoskeletal: He exhibits edema. Neurological: He is alert and oriented to person, place, and time. Skin: Skin is warm and dry. Psychiatric: He has a normal mood and affect. His behavior is normal. RECENT LABS Lab Results Component Value Date EGFR 12 09/11/2019 CREATININE 5.00 09/11/2019 CHOL 210 11/07/2018 LDL 122 11/07/2018 HDL 34 11/07/2018 TRIG 268 11/07/2018 GLUCOSE 206 09/11/2019 PTH 341.7 04/02/2019 HCT 24.3 09/11/2019 BUN 77 09/11/2019 NA 135 09/11/2019 K 4.2 09/11/2019 CL 102 04/02/2019 CO2 24 09/11/2019 ALBUMIN 3.7 01/25/2019 CA 8.7 09/11/2019 IMAGES DPS CONVERSION - CONSULTATION REPORT NOTE PROCEDURE Ordered by an unspecified provider. ASSESSMENT AND PLAN Assessment/Plan Diagnoses and all orders for this visit: Stage 5 chronic kidney disease ([facility] [place]) - Referral to Interventional Nephrology; Future - CBC (includes Platelets / NO Differential); Future - Renal Function Panel (RFP); Future Type 2 diabetes mellitus with diabetic nephropathy ([facility] [place]) Secondary hyperparathyroidism ([facility] [place]) - PTH Intact w/o Calcium, Serum; Future Anemia in chronic kidney disease - CBC (includes Platelets / NO Differential); Future - Iron and TIBC, Serum; Future - Ferritin, Serum; Future Obstructive sleep apnea Hypertensive end stage renal disease ([facility] [place]) Other orders - furosemide (LASIX) 80 MG tablet; Take 1 tablet (80 mg total) by mouth 2 (two) times a day Blood Pressure for this visit is 165/71. The follow up plan to address blood pressure is watch: anticipate dialysis soon. The patient should return for BP check in 1 month Juvenal is due to have a general surgeon's appointment with you to see evaluating his abdomen is seeing if he is a candidate for placement surgically of her peritoneal dialysis catheter. However after the appointment I will hold and wait and see when is an appropriate time to proceed with the placement of the peritoneal dialysis catheter. He is not obviously uremic at this point. Can maintain current treatment. Lasix has been refilled. Continue with the calcitriol for secondary hyperparathyroidism control sugars and blood pressure. We will see him again in a month's time. Plans discussed with patient RICARDO BANUELOS MD documented in this encounter Plan of Treatment Scheduled Orders Name Type Priority Associated Diagnoses Orde r Schedule CBC (includes Platelets / NO Differential) Lab Routine Stage 5 chronic kidney disease ([facility]-H[facility]) Anemia in chronic kidney disease Expected: 03/31/2020, Expires: 03/31/2020 PTH Intact w/o Calcium, Serum Lab Routine Secondary hyperparathyroidism ([facility]-HCC) Expected: 03/31/2020, Expires: 03/31/2020 Renal Function Panel (RFP) Lab Routine Stage 5 chronic kidney disease ([facility]-HCC) Expected: 03/31/2020, Expires: 10/01/2020 Iron and TIBC, Serum Lab Routine Anemia in chronic kidney disease 1 Occurrences starting 10/01/2019 until 03/31/2020 Ferritin, Serum Lab Routine Anemia in chronic kidney disease 1 Occurrences starting 10/01/2019 until 03/31/2020 documented as of this encounter Visit Diagnoses Diagnosis Stage 5 chronic kidney disease ([facility]-HCC)- Primary Type 2 diabetes mellitus with diabetic nephropathy ([facility]) Secondary hyperparathyroidism ([facility]) Anemia in chronic kidney disease Obstructive sleep apnea Hypertensive end stage renal disease ([facility]-HCC) documented in this encounter
--- OUTSIDE RECORDS SUMMARY | 2024-08-18 13:35 | XMS_ITS | Encounter Summary ---
Author Organization [facility] Address [address] [address] Phone Care Team Providers Care Manufacturing Clerk Name Role Phone Unavailable Primary Care Provider Unavailabl e Reason for Visit * Reason Comments Med Refill Encounter Details Date Type Department Care Team (Late st Contact Info) Description 02/13/2019 Refill [facility] [address] [address] Leandro Reyes MD [address] [address] Social History Tobacco Use Types [...]
--- OUTSIDE RECORDS SUMMARY | 2024-08-18 13:35 | XMS_ITS | Encounter Summary ---
Author Organization [facility] Address [address] [place] [address] Care Team Providers Care Screening Unit Registered Nurse Name Role Phone Jhonatan Bellamy MD Primary Care Provider Encounter Details Date Type Department Care Team (Late st Contact Info) Description 04/16/2018 Orders Only [facility] Oncology and Hematology - [place] [address] [phone] Tanna Costa RN Anemia of chronic renal [...] Associated Diagnosis Comments CBC WITH DIFFERENTIAL Stat 04/16/2018 Anemia of chronic renal failure, stage 4 (severe) BASIC METABOLIC PANEL Routine 04/16/2018 Anemia of chronic renal failure, stage 4 (severe) documented in this encounter Results * CBC WITH DIFFERENTIAL (04/16/2018) Blood Fernando Schmid MD HEMATOLOGY ORDERABLE S EXTERNAL LAB * BASIC METABOLIC PANEL (04/16/2018) Blood Fernando Schmid MD CHEMISTRY ORDERABLES EXTERNAL LAB documented in this encounter Visit Diagnoses Diagnosis Anemia of chronic renal failure, stage 4 (severe) documented in this encounter Care Teams Screening Unit Registered Nurse Relationship Specialty Start Date End Date Jhonatan Bellamy MD [address] [place] [address] PCP - General Family Practice 06/05/17 09/10/18 documented as of this encounter
--- OUTSIDE RECORDS SUMMARY | 2024-08-18 13:35 | XMS_ITS | Encounter Summary ---
Author Organization [facility] Address [address] [place] [address] Care Team Providers Care Paginator Name Role Phone Jhonatan Bellamy MD Primary Care Provider [phone] Encounter Details Date Type Department Care Team (Late st Contact Info) Description 08/16/2018 Orders Only [facility] Oncology and Hematology - [place] [address] [phone] Tanna Costa RN Anemia in stage 4 [...] Associated Diagnosis Comments CBC WITH DIFFERENTIAL Stat 08/16/2018 Anemia in stage 4 chronic kidney disease documented in this encounter Results * (ABNORMAL) CBC WITH DIFFERENTIAL (08/16/2018) Blood Fernando Schmid MD HEMATOLOGY ORDERABLE S NON [facility] documented in this encounter Visit Diagnoses Diagnosis Anemia in stage 4 chronic kidney disease documented in this encounter Care Teams Paginator Relationship Specialty Start Date End Date Jhonatan Bellamy MD [address] [place] [phone] PCP - General Family Practice 06/05/17 09/10/18 documented as of this encounter
--- OUTSIDE RECORDS SUMMARY | 2024-08-18 13:36 | XMS_ITS | Encounter Summary ---
Author Organization [facility] Address [address] [place] [phone] Phone Care Team Providers Care Gastroenterology Nurse Name Role Phone Unavailable Primary Care Provider Unavailabl e Encounter Details Date Type Department Care Team (Late st Contact Info) Description 11/08/2018 1:00 PM CDT Office Visit [facility] [address] [facility] [address] [place] [address] Arabella Lo NP [address] [address] Chronic kidney disease stage 4 (CMS-HCC) (Primary Dx) Social History Tobacco Use Types Packs/Day Years Used Date Smoking Tobacco: Never Alcohol Use Standard Drinks/Week Comments No 0 (1 standard drink = 0.6 oz pur e alcohol) Sex and Gender Information Value Date Recorded Sex Assigned at Not on file Gender Identity Not on file Sexual Orientation Not on file documented as of this encounter Progress Notes * Arbaella Lo NP - 11/08/2018 1:00 PM CDT Patient presents today for renal education. Oral pre and post test performed. Discussed modalities including hemodialysis, peritoneal dialysis, medical management, and transplant. Patient has indicated that they will likely chose [facility] and has also discussed this at a past hospitalization at [place]. Patient is to notify office if any changes in health take place prior to follow up with guideman. This includes any changes in urinary habits, shortness of breath, loss of appetite, weight gain or loss, or any edema. Total time spent: 55 minutes documented in this encounter Plan of Treatment Not on file documented as of this encounter Visit Diagnoses Diagnosis Chronic kidney disease stage 4 (CMS-HCC)- Primary documented in this encounter
--- OUTSIDE RECORDS SUMMARY | 2024-08-18 13:38 | XMS_ITS | Continuity of Care Document ---
Author Organization [facility] Address [address] [place] [address] [place] [address] Phone Care Team Providers Care Assembler Seat Name Role Phone Carlos Garcia Unavailable Unavailable Advance Directives Directive Yes / No Effective Date File Name No Information Encounters Encounter Description Practice Location Reason(s) For Visit Diagnoses Date Provider Providers Copied on Encounter [facility], [id number] [place] [address] [address], [place], [place], [id number], [place] tel:[phone] [facility] No Information Radha Gonzalez. [address] [place], [place], [facility], [place]. tel:[phone] Referring Provider: Yannick Remy, [facility] [address], [place], [place], [facility]. tel:[phone] Family History Family Member Type Diagnosis Age At Onset No Information Payers Payer name Insurance type Covered constitution party ID Authoriza tion(s) Medicaid [facility] [id number] Social History Type Description Quantity Date Captured Comments Sex Male Smoking Status No Information Chief Complaint And Reason For Visit No Information Reason For Referral Reason For Referral No Information History Of Present Illness Encounter Date Complaint History Of Prese nt Illness No Information Functional Status Date Functional Assessmen t No Information Instructions Date Instruction Additional Infor mation No Information Assessments Type Assessment Date No Information Patient Care Teams Name Effective Dates (start - stop) Status Members No Information
== END 2024-08-11 15:26 | disposition home or self-care (01) ==
PROVIDERS: Emergency Provider Emergency Medicine; PCP Family Medicine
DX: M62.830 Muscle spasm of back (principal); I13.2 Hypertensive heart and chronic kidney disease with heart failure and with stage 5 chronic kidney disease, or end stage renal disease; E10.22 Type 1 diabetes mellitus with diabetic chronic kidney disease; N18.6 End stage renal disease; Z99.2 Dependence on renal dialysis; D64.9 Anemia, unspecified; F41.9 Anxiety disorder, unspecified; M19.90 Unspecified osteoarthritis, unspecified site; Z79.01 Long term (current) use of anticoagulants; I50.9 Heart failure, unspecified; I25.10 Atherosclerotic heart disease of native coronary artery without angina pectoris; E10.42 Type 1 diabetes mellitus with diabetic polyneuropathy; K21.9 Gastro-esophageal reflux disease without esophagitis; G47.30 Sleep apnea, unspecified
CPT/HCPCS: 36415; 74176; 80053; 81001; 85025; 85610; 85730; 87086; 96361; 96374; 96375; 96376; 99284; J1171; J2270; J2405; J2550; J7040

== ENCOUNTER 2024-08-16 17:44 | Inpatient (IN) | payer MEDICARE, MEDICAID, SELFPAY ==
--- NOTE | ~2024-08-16 | CT_ITS ---
EXAMINATION: CT chest abdomen pelvis wo con DATE: 08/17/2024 08:26 INDICATION: Left lower thoracic back pain. Hematuria. TECHNIQUE: Computed tomography (CT) of the chest, abdomen, and pelvis was performed without intraveno us contrast. Automated exposure control and iterative reconstruction technique were employed. The dos e-length product was 1810.65 mGy-cm. COMPARISON: 08/11/2024 FINDINGS: CHEST CT: No significant change in a small left pleural effusion with dependent compressive atelectasis in the left lower lobe. Additional discoid atelectasis in the lingula, and the left lower lobe and in the ri ght upper lobe along the minor fissure. No pneumonia or pulmonary edema. Heart size is normal. No per icardial effusion. Atherosclerotic coronary artery calcific lesions. Median sternotomy and prior aort ic valve repair. Thoracic aorta is normal in caliber. No pathologically enlarged thoracic lymphadenop athy. Moderate thoracic spondylosis with a few scattered Schmorl's nodes. ABDOMEN/PELVIS CT: Cholelithiasis. Liver, spleen, pancreas, bilateral adrenal glands and kidneys are normal. No signific ant change in small amount of ascites likely related to peritoneal dialysis with dialysis catheter in the left lower quadrant. Persistent small amount of ascites tracking along the catheter in the anter ior abdominal wall. Bowels are unremarkable. Bladder is normal. There is calcified atherosclerosis of the aorta and many of the other arteries. No pathologically enlarged abdominal or pelvic lymphadenop athy. Prominent edema in the subcutaneous tissues surrounding the umbilicus. Mild lumbar spondylosis with a couple additional Schmorl's nodes. IMPRESSION: 1. Unchanged small left pleural effusion. 2. Peritoneal dialysis catheter with unchanged small amount of ascites in the abdomen and pelvis and a small amount of ascites tracking along the dialysis catheter in the left lower quadrant anterior ab dominal wall. 3. Persistent severe periumbilical edema with overlying skin thickening. Correlate clinically for lyla lulitis. 4. Cholelithiasis. Reviewed, dictated and finalized at location A. ING APPLICATOR IMPRESSION: 1. Unchanged small left pleural effusion. 2. Peritoneal dialysis catheter with unchanged small amount of ascites in the a bdomen and pelvis and a small amount of ascites tracking along the dialysis cat heter in the left lower quadrant anterior abdominal wall. 3. Persistent severe periumbilical edema with overlying skin thickening. Correl ate clinically for cellulitis. 4. Cholelithiasis.
--- NOTE | ~2024-08-16 | XR_ITS ---
CHEST RADIOGRAPH, PA AND LATERAL CLINICAL HISTORY: sob . COMPARISON: 08/16/2024 TECHNIQUE: PA and lateral views of the chest. FINDINGS Sternal wires and mediastinal clips are identified, the wires are midline and intact. Valvular ring projecting over the aortic position. The remainder of the cardiomediastinal silhouette is otherwise unremarkable. Large left-sided pleural effusion with adjacent compressive atelectasis. Fluid within the right major fissure. The lungs are otherwise clear. IMPRESSION: Large left-sided pleural effusion with adjacent compressive atelectasis. No focal infiltrate. Reviewed, dictated and finalized at location A. CAL COORDINATOR PESTICIDE USE IMPRESSION: Large left-sided pleural effusion with adjacent compressive atelectasis. No foc al infiltrate.
--- NOTE | ~2024-08-16 | XR_ITS ---
XR chest 1V Ordering provider: Juanito Sexton PA-C History: 53 years Male with . cough, exposed to covid . Comparison: None. FINDINGS: MEDIASTINUM: The cardiac silhouette is slightly enlarged. LUNGS: No pneumothorax. Opacification in the left lower lobe area. Minimal left effusion is also note d. OTHER: No free air under the diaphragm. IMPRESSION: Left basal atelectasis versus pneumonia with minimal effusion. Reviewed, dictated and finalized at location A. CTOR OF FRONT OFFICE
--- NOTE | 2024-08-16 18:06 | ED_ITS ---
HPI - Dizziness General Chief Complaint: Dizziness <Juanito Sexton PA-C - Last Filed: 08/16/24 18:31> Stated Complaint: dizzy, fatigue <Juanito Sexton PA-C - Last Filed: 08/16/24 18:31> Time Seen by Provider: 08/17/24 07:01 <Juanito Sexton PA-C - Last Filed: 08/16/24 18:31> Focused HPI: this is a 53-year-old male who presents to the ED for chief complaint of cough and dizziness x1 day. Reports associated pain in the left side of the back radiating to the left-sided chest. States that he the cough is making the pain worse. Endorses lightheadedness and fatigue. States that his son has been home sick with similar symptoms. GENERAL: Well-appearing, well-nourished, and in no acute distress. HEAD: Normocephalic, atraumatic. CHEST: Coughs on respiratory exam. No respiratory distress. HEART: Regular rate and rhythm. NEURO: Alert and oriented x3. Patient screened in triage and initial orders placed. Additional care and disposition to be based upon diagnostic testing and treatment. <Juanito Sexton PA-C - Last Filed: 08/16/24 18:31> Focused HPI: this is a 53-year-old male who presents to the ED for chief complaint of cough and dizziness x1 day. Reports associated pain in the left side of the back radiating to the left-sided chest. States that he the cough is making the pain worse. Endorses lightheadedness and fatigue. States that his son has been home sick with similar symptoms. patient states he has been completing his peritoneal dialysis as instructed. He has not taken his metoprolol today. patient still has pain in his left lower back which he was seen approximately 1 week ago in our ED and diagnosed w/ back spasms. GENERAL: Well-appearing, well-nourished, and in no acute distress. HEAD: Normocephalic, atraumatic. CHEST: Coughs on respiratory exam. No respiratory distress. HEART: Regular rate and rhythm. NEURO: Alert and oriented x3. Patient screened in triage and initial orders placed. Additional care and disposition to be based upon diagnostic testing and treatment. <Jhonatan Pritchard MD - Last Filed: 08/17/24 12:25> Source: patient <Juanito Sexton PA-C - Last Filed: 08/16/24 18:31> Mode of arrival: ambulatory <Juanito Sexton PA-C - Last Filed: 08/16/24 18:31> Limitations: no limitations <Juanito Sexton PA-C - Last Filed: 08/16/24 18:31> Related Data Home Medications: Home Medications ?Medication ?Instructions ?Recorded ?Confirmed ?Last Taken ?Type calcitriol 0.25 mcg capsule 0.25 mcg PO QAM 06/04/19 07/30/24 07/29/24 History ergocalciferol (vitamin D2) 1,250 50,000 unit PO WEEKLY 06/04/19 07/30/24 07/29/24 History mcg (50,000 unit) capsule (Vitamin D2) nitroglycerin 0.4 mg sublingual 0.4 mg sublingual Q5-15M PRN Chest 06/04/19 07/30/24 05/19/23 16:30 History tablet Pain ezetimibe 10 mg tablet (Zetia) 10 mg PO DAILY 09/09/19 07/30/24 07/29/24 History cetirizine 10 mg tablet (All Day 10 mg PO DAILY 12/26/19 07/30/24 07/29/24 History Allergy (cetirizine)) atorvastatin 80 mg tablet 80 mg PO DAILY 11/26/20 07/30/24 07/29/24 History metoprolol succinate 50 mg 25 mg PO HS 05/20/23 07/30/24 07/28/24 History tablet,extended release 24 hr potassium chloride 20 mEq 20 meq PO DAILY PRN Cramps 05/20/23 07/30/24 05/19/23 10:00 History tablet,extended release febuxostat 40 mg tablet 40 mg PO QPM 07/25/23 07/30/24 07/28/24 History gemfibrozil 600 mg tablet 600 mg PO Q12H 07/25/23 07/30/24 07/29/24 History linaclotide 72 mcg capsule 72 mcg PO DAILY PRN Diarrhea 07/25/23 07/30/24 Unknown History (Linzess) icosapent ethyl 1 gram capsule 1 g PO Q12H 02/16/24 07/30/24 07/29/24 History (Vascepa) torsemide 100 mg tablet 100 mg PO DAILY 02/16/24 07/30/24 07/29/24 History moxifloxacin 0.5 % eye drops 1 drp LEFT EYE QID 05/27/24 07/30/24 05/26/24 History omeprazole 20 mg capsule,delayed 20 mg PO DAILY 06/06/24 07/30/24 07/29/24 History release amlodipine 10 mg tablet 10 mg PO HS 07/30/24 07/30/24 07/28/24 History calcium acetate(phosphat bind) 667 667 mg PO QID 07/30/24 07/30/24 07/29/24 History mg capsule erythromycin 5 mg/gram (0.5 %) eye 1 applic EACH EYE HS 07/30/24 07/30/24 Unknown History ointment glucagon 1 mg/0.2 mL subcutaneous See Rx Instructions .Route 07/30/24 07/30/24 Unknown History auto-injector (Gvoke HypoPen .COMPLEX PRN Hypoglycemia 2-Pack) warfarin 3 mg tablet 1.5 mg PO WEEKLY 07/30/24 07/30/24 07/26/24 History <Juanito Sexton PA-C - Last Filed: 08/16/24 18:31> Allergies/Adverse Reactions: Allergies Allergy/AdvReac Type Severity Reaction Status Date / Time allopurinol Allergy Severe Other Verified 08/17/24 08:24 iodine Allergy Severe Rash Verified 08/17/24 08:24 iohexol (From CONTRAST - CT, Allergy Severe Difficulty Verified 08/17/24 08:24 XRAY) Breathing ticagrelor Allergy Intermediate Rash Verified 08/17/24 08:24 <Juanito Sexton PA-C - Last Filed: 08/16/24 18:31> [facility] Past Medical History Medical History: Medical History Right hand dominant Insulin dependent diabetes mellitus Chronic anticoagulation Paroxysmal atrial fibrillation Renal osteodystrophy Seizure X1 with etiology unknown End-stage renal disease on peritoneal dialysis Essential hypertension Gout Deep venous thrombosis Chronic right popliteal DVT. Coronary artery disease History of several stents including complex procedure at [facility] w/ stenting of a heavily calcified CX on OM using shockwave treatment. Gastroesophageal reflux disease Congestive heart failure Echocardiogram May 2017 EF of 50% with hypokinetic apical, inferior and basal inferior lateral segment, mild enlargement of left atrium. Anemia in chronic kidney disease Type 1 diabetes mellitus Onset around age 13. Diabetic retinopathy Diabetic peripheral neuropathy Obstructive sleep apnea With inconsistent CPAP use. Secondary hyperparathyroidism of renal origin Anxiety Arthritis Hyperlipidemia <Juanito Sexton PA-C - Last Filed: 08/16/24 18:31> Surgical History Surgical History: Surgical History S/P triple vessel bypass Sep 2023; [facility] History of coronary angioplasty with insertion of stent Drug-eluting stents for high-grade OM 99% occlusion 05/2022. History of hernia repair Peritoneal dialysis catheter in place History of cataract extraction With lens implant History of open reduction and internal fixation (ORIF) procedure (1982) Left lower extremity fracture. And the right hip pinning when he was in the 8th grade History of arthroscopy of left knee History of anterior cruciate ligament surgery (2000) Left knee History of bilateral carpal tunnel release Right 05/03/2018. Left 06/02/2018. History of appendectomy (2006) History of cardiac catheterization 01/21/2021 catheterization at [facility], Dr. Hoover done: Little change from prior catheterization. Patent stents in the RCA and PDA. Previously jailed posterolateral is occluded and development of a 50% stenosis of a branch of om 1. Normal LV function. :August 2019 demonstrated patent stents with 40% stenosis of 1 vessel with no stents or angioplasty performed per patient report. :November 2018 at [facility] - stent x3. :March 2017 demonstrating mild diffuse coronary disease 80% lesion small sub branch of obtuse marginal 1 and 90% stenosis distal RCA into the origin of the PDA with PTCA and stent to the RPDA/distal RCA performed by Dr. Petit. <Juanito Sexton PA-C - Last Filed: 08/16/24 18:31> Family History Family History: Family History Father , in his late 60s Acute myocardial infarction Premature coronary artery disease; <65yo CHF (congestive heart failure) Dementia Hypertension S/P triple vessel bypass 1980s Mother Lung cancer Hypertension Daughter Celiac disease <Juanito Sexton PA-C - Last Filed: 08/16/24 18:31> Social History Social History: Social History Social History: Surrogate medical decision maker: Hodan Daigle (daughter) or Lorne Daigle (brother). Code status: Full code. Smoking status: Never smoker Second hand tobacco smoke exposure: No Alcohol intake: never Substance use: never Substance use type: does not use Do You Feel Safe in your Home?: Yes Lack of Transportation: YES Lack of Food: Sometimes True Current Housing: I Have Housing Concerned About Future Housing: No Difficulty Paying Gas/Electric Bills: No Difficulty Paying for Meds: YES Currently Unemployed: No Education: High School Diploma/GED Difficulty w/ Childcare or Family Care: No Living arrangements: alone Additional living arrangements comments: He is single and has 3 children. 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 Spiritual care concerns: No Agree to blood products: Yes <Juanito Sexton PA-C - Last Filed: 08/16/24 18:31> Exam 2 Narrative: APPEARANCE: No apparent distress. Head: atraumatic. EYES: EOMI, NOSE: Atraumatic NECK: Trachea midline RESPIRATORY: No increased rate of breathing Clear to auscultation CARDIOVASCULAR: tachycardic, ABDOMINAL: Non-distended , soft nontender, no CVA tenderness. No evidence of cellulitis of lower abdomen MUSCULOSKELETAl: No obvious deformities, NEURO: Alert. Moving 4/4 extremities SKIN:: Warm, dry. Normal color PSYCHIATRIC: Normal affect <Jhonatan Pritchard MD - Last Filed: 08/17/24 12:25> Course Vital Signs Vital signs: Vital Signs Temperature 98.0 F 08/16/24 18:07 Pulse Rate 119 H 08/16/24 18:07 Respiratory Rate 20 08/16/24 18:07 Blood Pressure 118/71 08/16/24 18:07 Pulse Oximetry 100 08/16/24 18:07 Oxygen Delivery Room Air 08/16/24 18:07 Temperature 98.5 F 08/17/24 02:46 Pulse Rate 112 H 08/17/24 10:36 Respiratory Rate 14 08/17/24 10:36 Blood Pressure 117/83 08/17/24 10:36 Pulse Oximetry 96 08/17/24 10:36 Oxygen Delivery Room Air 08/16/24 18:07 <Juanito Sexton PA-C - Last Filed: 08/16/24 18:31> Vital Signs Temperature 98.0 F 08/16/24 18:07 Pulse Rate 119 H 08/16/24 18:07 Respiratory Rate 20 08/16/24 18:07 Blood Pressure 118/71 08/16/24 18:07 Pulse Oximetry 100 08/16/24 18:07 Oxygen Delivery Room Air 08/16/24 18:07 Temperature 98.5 F 08/17/24 02:46 Pulse Rate 112 H 08/17/24 10:36 Respiratory Rate 14 08/17/24 10:36 Blood Pressure 117/83 08/17/24 10:36 Pulse Oximetry 96 08/17/24 10:36 Oxygen Delivery Room Air 08/16/24 18:07 <Jhonatan Pritchard MD - Last Filed: 08/17/24 12:25> MDM - Dizziness MDM Narrative Medical decision making narrative: -Course: This is a 54-year-old unhealthy male with multiple medical comorbidities presenting for multiple complaints. On arrival he is tachycardic in the 110s. He has not taken his home metoprolol which was given with mild improvement in heart rate. Given 1 L of normal saline for fluid resuscitation given his history of peritoneal dialysis and congestive heart failure. Broad workup obtained. Patient found have a stable left-sided pleural effusion with atelectasis versus pneumonia. This is corresponds where his back pain is located. Additionally patient is found have lissa hematuria w/ >100RBCs and WBCs. He is on Coumadin and his INR is 3.0. Patient will be started on ceftriaxone and doxycycline which will cover both pneumonia and possible UTI. Additionally patient's creatinine is elevated to 11.5 from a baseline around 6-8 despite . Patient is very unhealthy at baseline w/ multiple medical comorbidities so a more cautious approach has been taken and the patient will be admitted. -DDX includes but is not limited to: Pneumonia, CHF, UTI, sepsis -Co-morbidities complicating care: CHF, end-stage renal disease ,hypertension, diabetes, thyroid -Independent interpretation of studies: white count 4.9, hemoglobin 11.8 INR 3.0 metabolic panel shows sodium 132 chloride 95, potassium 5.2 without EKG changes BUN and creatinine 83/11.1. baseline creatinine around 60 troponin elevated 0.05 she is likely trouble leak from end-stage renal disease. BNP is greater than 30,000 which is not useful in ESRD. Patient has no respiratory distress. urine with greater than 100 red blood cells and white blood cells. Urine cultures pending. -Discussion of Management/Consultants: Fabián -Interventions:1 L Normal saline, Ceftriaxone/Doxy -Shared decision making / Disposition:admitted <Jhonatan Pritchard MD - Last Filed: 08/17/24 12:25> Lab Data Result diagrams: 08/16/24 20:29 08/16/24 20:29 <Juanito Sexton PA-C - Last Filed: 08/16/24 18:31> Labs: Lab Results 08/16/24 08/17/24 08/17/24 Range/Units 20:29 04:17 05:40 WBC 4.9 (4.5-10.0) K/mm3 RBC 3.85 L (4.6-6.20) M/mm3 Hgb 11.8 L (14.0-18.0) g/dL Hct 36.3 L (42.0-52.0) % MCV 94.3 (80-100) fl MCH 30.6 (26-34) pg MCHC 32.5 (32-36) g/dl RDW 14.9 H (11.5-14.5) % Plt Count 205 (150-375) k/mm3 MPV 10.0 (7.4-10.4) fl Immature Gran % (Auto) 0.2 (0-0.5) % Neut % (Auto) 57.6 (45.5-73.1) % Lymph % (Auto) 21.3 (18.3-44.2) % [place] % (Auto) 16.8 H (2.6-8.5) % Eos % (Auto) 3.7 (0-4.4) % Baso % (Auto) 0.4 (0.2-1.2) % Lymph # (Auto) 1.05 (0.9-3.2) K/mm3 [place] # (Auto) 0.8 H (0.1-0.6) K/mm3 Eos # (Auto) 0.2 (0-0.3) K/mm3 Baso # (Auto) 0.0 (0.0-0.1) K/mm3 Abs Immat Gran (auto) 0.01 (0.00-0.031) K/mm3 Absolute Neuts (auto) 2.8 (1.3-6.7) K/mm3 Absolute Nucleated RBC 0.000 (0.0-0.012) K/mm3 Nucleated RBC % 0.0 (0.0-0.2) % PT (11.1-14.7) Seconds INR APTT (22.3-36.8) Seconds Sodium 132 L (137-145) mmol/L Potassium 5.2 H (3.4-5.0) mmol/L Chloride 95 L (98-107) mmol/L Carbon Dioxide 28 (22-30) mmol/L Anion Gap 9 (4-12) mmol/L BUN 83 H D (9-20) mg/dL Creatinine 11.10 H (0.7-1.3) mg/dL Estim Creat Clear Calc 9 ml/min Estimated GFR 5 L (59 - ) Glucose 162 H (65-110) mg/dL POC Capillary Glucose 84 (65-105) mg/dl Calcium 8.9 (8.4-10.2) mg/dL Total Bilirubin 0.5 (0.2-1.3) mg/dL AST 30 (17-59) U/L ALT 27 (6-50) U/L Alkaline Phosphatase 86 (38-126) U/L Troponin I 0.039 H* 0.045 H* (0.000-0.034) ng/mL NT-Pro-B Natriuret Pep > 90832 H (19.9-100) pg/mL Total Protein 7.0 (6.3-8.2) g/dL Albumin 3.8 (3.5-5.1) g/dL Lipase 50 (23-300) U/L Urine Color Yellow (Yellow) Urine Appearance Cloudy H (Clear) Urine pH 6.0 (5.0-9.0) Ur Specific [place] 1.023 (1.001-1.035) Urine Protein 3+ H (Negative) mg/dL Urine Glucose (UA) 2+ H (Negative) mg/dL Urine Ketones Negative (Negative) mg/dL Ur Blood (Man) 3+ H (Negative) Urine Nitrate Negative (Negative) Urine Bilirubin Negative (Negative) Urine Urobilinogen 0.2 (<2.0) mg/dL Leukocyte Esterase Rfl 2+ H (Negative) [place]/UL Urine RBC >100 H (0-2) /hpf Urine WBC >100 (0-3) /hpf Influenza A (RT-PCR) (Negative) Influenza B (RT-PCR) (Negative) RSV (RT-PCR) (Negative) SARS-CoV-2 RNA (RT-PCR) (Negative) 08/17/24 08/17/24 08/17/24 Range/Units 06:03 07:12 09:33 WBC (4.5-10.0) K/mm3 RBC (4.6-6.20) M/mm3 Hgb (14.0-18.0) g/dL Hct (42.0-52.0) % MCV (80-100) fl MCH (26-34) pg MCHC (32-36) g/dl RDW (11.5-14.5) % Plt Count (150-375) k/mm3 MPV (7.4-10.4) fl Immature Gran % (Auto) (0-0.5) % Neut % (Auto) (45.5-73.1) % Lymph % (Auto) (18.3-44.2) % [place] % (Auto) (2.6-8.5) % Eos % (Auto) (0-4.4) % Baso % (Auto) (0.2-1.2) % Lymph # (Auto) (0.9-3.2) K/mm3 [place] # (Auto) (0.1-0.6) K/mm3 Eos # (Auto) (0-0.3) K/mm3 Baso # (Auto) (0.0-0.1) K/mm3 Abs Immat Gran (auto) (0.00-0.031) K/mm3 Absolute Neuts (auto) (1.3-6.7) K/mm3 Absolute Nucleated RBC (0.0-0.012) K/mm3 Nucleated RBC % (0.0-0.2) % PT 31.6 H D (11.1-14.7) Seconds INR 3.0 APTT 73.3 H (22.3-36.8) Seconds Sodium (137-145) mmol/L Potassium (3.4-5.0) mmol/L Chloride (98-107) mmol/L Carbon Dioxide (22-30) mmol/L Anion Gap (4-12) mmol/L BUN (9-20) mg/dL Creatinine (0.7-1.3) mg/dL Estim Creat Clear Calc ml/min Estimated GFR (59 - ) Glucose (65-110) mg/dL POC Capillary Glucose 158 H (65-105) mg/dl Calcium (8.4-10.2) mg/dL Total Bilirubin (0.2-1.3) mg/dL AST (17-59) U/L ALT (6-50) U/L Alkaline Phosphatase (38-126) U/L Troponin I (0.000-0.034) ng/mL NT-Pro-B Natriuret Pep (19.9-100) pg/mL Total Protein (6.3-8.2) g/dL Albumin (3.5-5.1) g/dL Lipase (23-300) U/L Urine Color (Yellow) Urine Appearance (Clear) Urine pH (5.0-9.0) Ur Specific [place] (1.001-1.035) Urine Protein (Negative) mg/dL Urine Glucose (UA) (Negative) mg/dL Urine Ketones (Negative) mg/dL Ur Blood (Man) (Negative) Urine Nitrate (Negative) Urine Bilirubin (Negative) Urine Urobilinogen (<2.0) mg/dL Leukocyte Esterase Rfl (Negative) [place]/UL Urine RBC (0-2) /hpf Urine WBC (0-3) /hpf Influenza A (RT-PCR) Negative (Negative) Influenza B (RT-PCR) Negative (Negative) RSV (RT-PCR) Negative (Negative) SARS-CoV-2 RNA (RT-PCR) Negative (Negative) <Juanito Sexton PA-C - Last Filed: 08/16/24 18:31> Lab Results 08/16/24 08/17/24 08/17/24 Range/Units 20:29 04:17 05:40 WBC 4.9 (4.5-10.0) K/mm3 RBC 3.85 L (4.6-6.20) M/mm3 Hgb 11.8 L (14.0-18.0) g/dL Hct 36.3 L (42.0-52.0) % MCV 94.3 (80-100) fl MCH 30.6 (26-34) pg MCHC 32.5 (32-36) g/dl RDW 14.9 H (11.5-14.5) % Plt Count 205 (150-375) k/mm3 MPV 10.0 (7.4-10.4) fl Immature Gran % (Auto) 0.2 (0-0.5) % Neut % (Auto) 57.6 (45.5-73.1) % Lymph % (Auto) 21.3 (18.3-44.2) % [place] % (Auto) 16.8 H (2.6-8.5) % Eos % (Auto) 3.7 (0-4.4) % Baso % (Auto) 0.4 (0.2-1.2) % Lymph # (Auto) 1.05 (0.9-3.2) K/mm3 [place] # (Auto) 0.8 H (0.1-0.6) K/mm3 Eos # (Auto) 0.2 (0-0.3) K/mm3 Baso # (Auto) 0.0 (0.0-0.1) K/mm3 Abs Immat Gran (auto) 0.01 (0.00-0.031) K/mm3 Absolute Neuts (auto) 2.8 (1.3-6.7) K/mm3 Absolute Nucleated RBC 0.000 (0.0-0.012) K/mm3 Nucleated RBC % 0.0 (0.0-0.2) % PT (11.1-14.7) Seconds INR APTT (22.3-36.8) Seconds Sodium 132 L (137-145) mmol/L Potassium 5.2 H (3.4-5.0) mmol/L Chloride 95 L (98-107) mmol/L Carbon Dioxide 28 (22-30) mmol/L Anion Gap 9 (4-12) mmol/L BUN 83 H D (9-20) mg/dL Creatinine 11.10 H (0.7-1.3) mg/dL Estim Creat Clear Calc 9 ml/min Estimated GFR 5 L (59 - ) Glucose 162 H (65-110) mg/dL POC Capillary Glucose 84 (65-105) mg/dl Calcium 8.9 (8.4-10.2) mg/dL Total Bilirubin 0.5 (0.2-1.3) mg/dL AST 30 (17-59) U/L ALT 27 (6-50) U/L Alkaline Phosphatase 86 (38-126) U/L Troponin I 0.039 H* 0.045 H* (0.000-0.034) ng/mL NT-Pro-B Natriuret Pep > 09514 H (19.9-100) pg/mL Total Protein 7.0 (6.3-8.2) g/dL Albumin 3.8 (3.5-5.1) g/dL Lipase 50 (23-300) U/L Urine Color Yellow (Yellow) Urine Appearance Cloudy H (Clear) Urine pH 6.0 (5.0-9.0) Ur Specific [place] 1.023 (1.001-1.035) Urine Protein 3+ H (Negative) mg/dL Urine Glucose (UA) 2+ H (Negative) mg/dL Urine Ketones Negative (Negative) mg/dL Ur Blood (Man) 3+ H (Negative) Urine Nitrate Negative (Negative) Urine Bilirubin Negative (Negative) Urine Urobilinogen 0.2 (<2.0) mg/dL Leukocyte Esterase Rfl 2+ H (Negative) [place]/UL Urine RBC >100 H (0-2) /hpf Urine WBC >100 (0-3) /hpf Influenza A (RT-PCR) (Negative) Influenza B (RT-PCR) (Negative) RSV (RT-PCR) (Negative) SARS-CoV-2 RNA (RT-PCR) (Negative) 08/17/24 08/17/24 08/17/24 Range/Units 06:03 07:12 09:33 WBC (4.5-10.0) K/mm3 RBC (4.6-6.20) M/mm3 Hgb (14.0-18.0) g/dL Hct (42.0-52.0) % MCV (80-100) fl MCH (26-34) pg MCHC (32-36) g/dl RDW (11.5-14.5) % Plt Count (150-375) k/mm3 MPV (7.4-10.4) fl Immature Gran % (Auto) (0-0.5) % Neut % (Auto) (45.5-73.1) % Lymph % (Auto) (18.3-44.2) % [place] % (Auto) (2.6-8.5) % Eos % (Auto) (0-4.4) % Baso % (Auto) (0.2-1.2) % Lymph # (Auto) (0.9-3.2) K/mm3 [place] # (Auto) (0.1-0.6) K/mm3 Eos # (Auto) (0-0.3) K/mm3 Baso # (Auto) (0.0-0.1) K/mm3 Abs Immat Gran (auto) (0.00-0.031) K/mm3 Absolute Neuts (auto) (1.3-6.7) K/mm3 Absolute Nucleated RBC (0.0-0.012) K/mm3 Nucleated RBC % (0.0-0.2) % PT 31.6 H D (11.1-14.7) Seconds INR 3.0 APTT 73.3 H (22.3-36.8) Seconds Sodium (137-145) mmol/L Potassium (3.4-5.0) mmol/L Chloride (98-107) mmol/L Carbon Dioxide (22-30) mmol/L Anion Gap (4-12) mmol/L BUN (9-20) mg/dL Creatinine (0.7-1.3) mg/dL Estim Creat Clear Calc ml/min Estimated GFR (59 - ) Glucose (65-110) mg/dL POC Capillary Glucose 158 H (65-105) mg/dl Calcium (8.4-10.2) mg/dL Total Bilirubin (0.2-1.3) mg/dL AST (17-59) U/L ALT (6-50) U/L Alkaline Phosphatase (38-126) U/L Troponin I (0.000-0.034) ng/mL NT-Pro-B Natriuret Pep (19.9-100) pg/mL Total Protein (6.3-8.2) g/dL Albumin (3.5-5.1) g/dL Lipase (23-300) U/L Urine Color (Yellow) Urine Appearance (Clear) Urine pH (5.0-9.0) Ur Specific [place] (1.001-1.035) Urine Protein (Negative) mg/dL Urine Glucose (UA) (Negative) mg/dL Urine Ketones (Negative) mg/dL Ur Blood (Man) (Negative) Urine Nitrate (Negative) Urine Bilirubin (Negative) Urine Urobilinogen (<2.0) mg/dL Leukocyte Esterase Rfl (Negative) [place]/UL Urine RBC (0-2) /hpf Urine WBC (0-3) /hpf Influenza A (RT-PCR) Negative (Negative) Influenza B (RT-PCR) Negative (Negative) RSV (RT-PCR) Negative (Negative) SARS-CoV-2 RNA (RT-PCR) Negative (Negative) <Jhonatan Pritchard MD - Last Filed: 08/17/24 12:25> Discharge Plan Discharge Clinical Impression: Hematuria, Pneumonia, End-stage renal disease (ESRD) <Juanito Sexton PA-C - Last Filed: 08/16/24 18:31> Patient Disposition: Still a Patient <Juanito Sexton PA-C - Last Filed: 08/16/24 18:31> Condition: Stable <Juanito Sexton PA-C - Last Filed: 08/16/24 18:31> Patient Language: Turkish <Juanito Sexton PA-C - Last Filed: 08/16/24 18:31> Prescriptions: No Action calcitriol 0.25 mcg Capsule 0.25 mcg PO QAM ergocalciferol (vitamin D2) [Vitamin D2] 50,000 unit Capsule 50,000 unit PO WEEKLY Rx Instructions: on mondays at 0900 nitroglycerin 0.4 mg Tablet, Sublingual 0.4 mg SUBLINGUAL Q5-15M PRN (Reason: Chest Pain) Patient Comments: pt states he needs his prescription renewed insulin lispro [Humalog U-100 Insulin] 100 unit/mL solution 100 unit continuous subcutaneous infusion DAILY MDD 100 Qty: 100 1RF Patient Comments: 35.25 u/day 5a-8p: 1 u/hr 8p-5a: 2.25 u/hr (DME) Omnipod 5 G6 Pods (Gen 5) Cartridge SUBCUT Qty: 45 2RF Rx Instructions: Change every 48 hours Humulin N NPH Insulin KwikPen 100 unit/mL (3 mL) insulin pen 10 unit subcut DAILY PRN (Reason: if insulin pump malfunction; before dialysis) Qty: 15 1RF levothyroxine 25 mcg tablet 25 mcg PO DAILY Qty: 90 1RF ezetimibe [Zetia] 10 mg Tablet 10 mg PO DAILY cetirizine [All Day Allergy (cetirizine)] 10 mg Tablet 10 mg PO DAILY atorvastatin 80 mg tablet 80 mg PO DAILY albuterol sulfate [ProAir HFA] 90 mcg/actuation HFA aerosol inhaler 1 inh inhalation QID PRN (Reason: shortness of breath or wheezing) Qty: 8.5 0RF gemfibrozil 600 mg tablet 600 mg PO Q12H febuxostat 40 mg tablet 40 mg PO QPM Linzess 72 mcg capsule 72 mcg PO DAILY PRN (Reason: Diarrhea) warfarin 3 mg tablet 3 mg PO DAILY Qty: 30 0RF Rx Instructions: everyday EXCEPT MONDAY omeprazole 20 mg capsule,delayed release(DR/EC) 20 mg PO DAILY cephalexin 500 mg capsule 500 mg PO Q12H Qty: 14 0RF metoprolol succinate 50 mg tablet extended release 24 hr 25 mg PO HS potassium chloride 20 mEq tablet extended release 20 meq PO DAILY PRN (Reason: Cramps) torsemide 100 mg tablet 100 mg PO DAILY icosapent ethyl [Vascepa] 1 gram capsule 1 g PO Q12H moxifloxacin 0.5 % drops 1 drp LEFT EYE QID Patient Comments: pt lost bottle; will refill once available warfarin 3 mg tablet 1.5 mg PO WEEKLY Rx Instructions: on MONDAY amlodipine 10 mg tablet 10 mg PO HS Gvoke HypoPen 2-Pack 1 mg/0.2 mL auto-injector See Rx Instructions .ROUTE .COMPLEX PRN (Reason: Hypoglycemia) Rx Instructions: INJECT 1 MG(0.2 ML) UNDER THE SKIN ONCE A SINGLE DOSE, MAY REPEAT ONCE AFTER 15 MINUTES IF NO RESPONSE calcium acetate(phosphat bind) 667 mg capsule 667 mg PO QID erythromycin 5 mg/gram (0.5 %) ointment 1 applic EACH EYE HS levofloxacin 500 mg tablet 500 mg PO .q48 7 Days Qty: 3 0RF insulin glargine [Lantus Solostar U-100 Insulin] 100 unit/mL (3 mL) insulin pen 10 unit subcut QPM Qty: 15 0RF insulin aspart U-100 [Novolog FlexPen U-100 Insulin] 100 unit/mL (3 mL) insulin pen 5 unit subcut TIDWMEAL Qty: 15 0RF cyclobenzaprine 10 mg tablet 5 - 10 mg PO TID PRN (Reason: muscle spasm) Qty: 10 0RF promethazine 12.5 mg tablet 12.5 mg PO TID Qty: 10 0RF (DME) pen needle, diabetic [BD Lucrecia 2nd Gen Pen Needle] 32 gauge x 5/32 needle See Rx Instructions .ROUTE .COMPLEX Qty: 100 0RF Dose Instruction: TO ADMINISTER INSULIN DIRECTED Rx Instructions: TO ADMINISTER INSULIN DIRECTED <Juanito Sexton PA-C - Last Filed: 08/16/24 18:31> Follow-up/Referrals: Matthew,MD Aditya [Primary Care Provider] - <Juanito Sexton PA-C - Last Filed: 08/16/24 18:31>
[2024-08-16 18:07] VITALS: BP 118/71; PULSE 119; RESP 20; TEMP 36.7; O2SAT 100
[2024-08-16 20:44] LABS: Basophils Percent Auto 0.4 % (0.2-1.2); Eosinophils Absolute Auto 0.2 K/mm3 (0-0.3); Eosinophils Percent Auto 3.7 % (0-4.4); Hematocrit 36.3 % (42.0-52.0); Hemoglobin 11.8 g/dL (14.0-18.0); Immature Granulocyte Absolute 0.01 K/mm3 (0.00-0.031); Immature Granulocyte Percent A 0.2 % (0-0.5); Lymphocytes Absolute Auto 1.05 K/mm3 (0.9-3.2); Lymphocytes Percent Auto 21.3 % (18.3-44.2); Mean Corpuscular HGB Conc 32.5 g/dl (32-36); Mean Corpuscular Hemoglobin 30.6 pg (26-34); Mean Corpuscular Volume 94.3 fl (80-100); Monocytes Absolute Auto 0.8 K/mm3 (0.1-0.6); Monocytes Percent Auto 16.8 % (2.6-8.5); Neutrophils Absolute Auto 2.8 K/mm3 (1.3-6.7); Neutrophils Percent Auto 57.6 % (45.5-73.1); Platelet Count Result 205 k/mm3 (150-375); Red Blood Count 3.85 M/mm3 (4.6-6.20); Red Cell Distribution Width 14.9 % (11.5-14.5); White Blood Count 4.9 K/mm3 (4.5-10.0)
[2024-08-16 20:53] LABS: Alanine Aminotransferase 27 U/L (6-50); Albumin Level 3.8 g/dL (3.5-5.1); Alkaline Phosphatase 86 U/L (38-126); Anion Gap 9 mmol/L (4-12); Aspartate Amino Transferase 30 U/L (17-59); Bilirubin,Total 0.5 mg/dL (0.2-1.3); Blood Urea Nitrogen 83 mg/dL (9-20); Calcium 8.9 mg/dL (8.4-10.2); Carbon Dioxide 28 mmol/L (22-30); Chloride 95 mmol/L (98-107); Estimated CRCL calculation 9 ml/min; Estimated Glomerular Filt Rate 5; Glucose 162 mg/dL (65-110); Lipase 50 U/L (23-300); Potassium 5.2 mmol/L (3.4-5.0); Sodium 132 mmol/L (137-145)
[2024-08-16 21:06] LABS: Add Urine Microscopic? YES; Appearance Urine Cloudy (Clear); Bilirubin Urine Negative (Negative); Blood Urine 3+ (Negative); Color Urine Yellow (Yellow); Glucose Urine UA 2+ mg/dL (Negative); Ketones Urine Negative (Negative); Leukocyte Esterase Ur 2+ LEU/UL (Negative); Nitrate Urine Negative (Negative); Protein Urine 3+ mg/dL (Negative); Specific Grav Ur 1.023 (1.001-1.035); Urobilinogen Urine 0.2 mg/dL (<2.0)
[2024-08-16 21:07] LABS: NT Pro B Type Natriuretic Pept > 30000 pg/mL (19.9-100); Troponin I 0.039 ng/mL (0.000-0.034)
[2024-08-16 21:13] LABS: RBC Urine >100 /hpf (0-2)
[2024-08-16 21:14] LABS: WBC Urine >100 /hpf (0-3)
[2024-08-17] VITALS (13 sets, daily range): BP systolic 116–135; BP diastolic 68–83; PULSE 74–121; RESP 12–20; TEMP 36.4–36.9; O2SAT 96–100; BMI 38.7
--- NOTE | 2024-08-17 00:50 | ECG_ITS ---
Test Date: 2024-08-17 04:03:52 Measurements Intervals [place] Rate: 120 P: 0 RI: 0 QRS: -32 QRSD: 140 T: 137 QT: 346 QTc: 489 Interpretive Statements ATRIAL FLUTTER/TACHYCARDIA WITH RAPID VENTRICULAR RESPONSE LEFT AXIS DEVIATION [QRS AXIS < -30] INTRAVENTRICULAR CONDUCTION DELAY [130+ ms QRS DURATION] POSSIBLE ANTERIOR MYOCARDIAL INFARCTION , OF INDETERMINATE AGE [30 ms Q WAVE IN V3/V4, OR R < 0.2 mV IN V4] ABNORMAL ECG Electronically Signed On 08-17-2024 08:30:45 TANK INSULATOR RUBBER by Carrington Weeks M.D.
[2024-08-17 04:46] LABS: Troponin I 0.045 ng/mL (0.000-0.034)
[2024-08-17 05:43] LABS: Glucose Point of Care 84 mg/dl (65-105)
[2024-08-17 06:43] LABS: Influenza A QL RT-PCR Negative (Negative); Influenza B QL RT-PCR Negative (Negative); RSV RNA, RT-PCR Negative (Negative); SARS-CoV-2 RNA PCR Negative (Negative)
[2024-08-17 07:13] LABS: Glucose Point of Care 158 mg/dl (65-105)
--- NOTE | 2024-08-17 07:53 | ECG_ITS ---
Test Date: 2024-08-17 07:56:40 Measurements Intervals [place] Rate: 115 P: 0 DE: 0 QRS: -46 QRSD: 134 T: 123 QT: 350 QTc: 484 Interpretive Statements PROBABLE ATRIAL FLUTTER LEFT AXIS DEVIATION [QRS AXIS < -30] INTRAVENTRICULAR CONDUCTION DELAY [130+ ms QRS DURATION] POSSIBLE ANTERIOR MYOCARDIAL INFARCTION , OF INDETERMINATE AGE [30 ms Q WAVE IN V3/V4, OR R < 0.2 mV IN V4] ABNORMAL ECG Electronically Signed On 08-17-2024 08:33:39 USED EQUIPMENT SALES REPRESENTATIVE by Carrington Weeks M.D.
[2024-08-17] MEDS: METOPROLOL SUCCINATE EXT REL 25 MG TABCR PO (08:24)
--- NOTE | 2024-08-17 08:27 | PC.NURSE ---
This RN took over care of patient at 0700 from LUAN Palomo
[2024-08-17] MEDS: SODIUM CHLORIDE 0.9% IV 1,000 ML 999 ML IV CONT (09:24)
[2024-08-17] MEDS: ACETAMINOPHEN 500 MG TABLET 1000 MG PO (09:24)
[2024-08-17 09:49] LABS: Prothrombin Time 31.6 Seconds (11.1-14.7)
[2024-08-17 09:50] LABS: Partial Thromboplastin Time 73.3 Seconds (22.3-36.8)
[2024-08-17] MEDS: DOXYCYCLINE 100 MG/NS 100 ML 100 MG/100 ML BAG IVPB (12:14)
[2024-08-17 12:28] LABS: Basophils Percent Auto 0.5 % (0.2-1.2); Eosinophils Absolute Auto 0.2 K/mm3 (0-0.3); Eosinophils Percent Auto 4.6 % (0-4.4); Hematocrit 34.5 % (42.0-52.0); Hemoglobin 11.2 g/dL (14.0-18.0); Immature Granulocyte Absolute 0.01 K/mm3 (0.00-0.031); Immature Granulocyte Percent A 0.2 % (0-0.5); Lymphocytes Percent Auto 25.5 % (18.3-44.2); Mean Corpuscular HGB Conc 32.5 g/dl (32-36); Mean Corpuscular Hemoglobin 30.8 pg (26-34); Mean Corpuscular Volume 94.8 fl (80-100); Mean Platelet Volume 9.8 fl (7.4-10.4); Monocytes Absolute Auto 0.7 K/mm3 (0.1-0.6); Monocytes Percent Auto 15.3 % (2.6-8.5); Neutrophils Absolute Auto 2.3 K/mm3 (1.3-6.7); Neutrophils Percent Auto 53.9 % (45.5-73.1); Platelet Count Result 201 k/mm3 (150-375); Red Blood Count 3.64 M/mm3 (4.6-6.20); Red Cell Distribution Width 14.8 % (11.5-14.5); White Blood Count 4.3 K/mm3 (4.5-10.0)
[2024-08-17 12:38] LABS: Alanine Aminotransferase 27 U/L (6-50); Albumin Level 3.5 g/dL (3.5-5.1); Alkaline Phosphatase 79 U/L (38-126); Anion Gap 8 mmol/L (4-12); Aspartate Amino Transferase 30 U/L (17-59); Bilirubin,Total 0.5 mg/dL (0.2-1.3); Blood Urea Nitrogen 84 mg/dL (9-20); Calcium 8.2 mg/dL (8.4-10.2); Carbon Dioxide 25 mmol/L (22-30); Chloride 98 mmol/L (98-107); Estimated CRCL calculation 9 ml/min; Estimated Glomerular Filt Rate 5; Glucose 172 mg/dL (65-110); Potassium 5.4 mmol/L (3.4-5.0); Sodium 131 mmol/L (137-145)
[2024-08-17] MEDS: LIDOCAINE 1% LOCAL INJ 10 ML VIAL (14:02)
--- NOTE | 2024-08-17 14:14 | PC.NURSE ---
I&D set up at bedside for provider.
--- NOTE | 2024-08-17 14:16 | PM.IMHP ---
H&P: HPI History of Present Illness Date/Time: 08/17/24 14:16 Chief Complaint: Left chest pain and hematuria Narrative: 54-year-old man well known to [facility] on peritoneal dialysis, type 1 diabetes awaiting a renal transplant diabetes, CHF, hypertension, CAD post CABG presents the hospital for left chest pain and hematuria. The patient came into the ED yesterday and stayed waiting room overnight missing his normal peritoneal dialysis. Patient states that his left-sided chest pain radiates to the back and is worse whenever he coughs. Patient has other complaints of general malaise and dizziness when he moves his head too fast. While patient was in the emergency room he had troponins drawn which were below his normal baseline and his EKG did not show any ischemia. CT of chest abdomen pelvis showed an unchanged small left pleural effusion. Peritoneal dialysis catheter with small amount of fluid in the lower abdomen unchanged, periumbilical edema unchanged, and cholelithiasis. Blood cultures x2 are pending, urine culture pending. Patient's INR is 3.0. He was given Rocephin, doxycycline and 1 L fluid bolus in the emergency room. Patient being admitted for lissa hematuria, creatinine above baseline and peritoneal dialysis. Review of Systems Review of Systems: 12 systems were reviewed and are negative except for as per HPI. [facility] Past Medical History Medical History (Updated 08/17/24 @ 19:08 by Jennifer Mustafa APRN) Hematuria Right hand dominant Insulin dependent diabetes mellitus Chronic anticoagulation Paroxysmal atrial fibrillation Renal osteodystrophy Seizure X1 with etiology unknown End-stage renal disease on peritoneal dialysis Essential hypertension Gout Deep venous thrombosis Chronic right popliteal DVT. Coronary artery disease History of several stents including complex procedure at [facility]/ stenting of a heavily calcified CX on OM using shockwave treatment. Gastroesophageal reflux disease Congestive heart failure Echocardiogram May 2017 EF of 50% with hypokinetic apical, inferior and basal inferior lateral segment, mild enlargement of left atrium. Anemia in chronic kidney disease Type 1 diabetes mellitus Onset around age 13. Diabetic retinopathy Diabetic peripheral neuropathy Obstructive sleep apnea With inconsistent CPAP use. Secondary hyperparathyroidism of renal origin Anxiety Arthritis Hyperlipidemia Surgical History Surgical History S/P triple vessel bypass Sep 2023; [facility] History of coronary angioplasty with insertion of stent Drug-eluting stents for high-grade OM 99% occlusion 05/2022. History of hernia repair Peritoneal dialysis catheter in place History of cataract extraction With lens implant History of open reduction and internal fixation (ORIF) procedure (1982) Left lower extremity fracture. And the right hip pinning when he was in the 8th grade History of arthroscopy of left knee History of anterior cruciate ligament surgery (2000) Left knee History of bilateral carpal tunnel release Right 05/03/2018. Left 06/02/2018. History of appendectomy (2006) History of cardiac catheterization 01/21/2021 catheterization at [facility], Dr. Hoover done: Little change from prior catheterization. Patent stents in the RCA and PDA. Previously jailed posterolateral is occluded and development of a 50% stenosis of a branch of om 1. Normal LV function. :August 2019 demonstrated patent stents with 40% stenosis of 1 vessel with no stents or angioplasty performed per patient report. :November 2018 at [facility] - stent x3. :March 2017 demonstrating mild diffuse coronary disease 80% lesion small sub branch of obtuse marginal 1 and 90% stenosis distal RCA into the origin of the PDA with PTCA and stent to the RPDA/distal RCA performed by Dr. Petit. Family History Family History Father , in his late 60s Acute myocardial infarction Premature coronary artery disease; <65yo CHF (congestive heart failure) Dementia Hypertension S/P triple vessel bypass 1980s Mother Lung cancer Hypertension Daughter Celiac disease Social History Social History Social History: Surrogate medical decision maker: Hodan Daigle (daughter) or Lorne Daigle (brother). Code status: Full code. Smoking status: Never smoker Second hand tobacco smoke exposure: No Alcohol intake: never Substance use: never Substance use type: does not use Do You Feel Safe in your Home?: Yes Lack of Transportation: No Lack of Food: Sometimes True Current Housing: I Have Housing Concerned About Future Housing: No Difficulty Paying Gas/Electric Bills: No Difficulty Paying for Meds: YES Currently Unemployed: No Education: High School Diploma/GED Difficulty w/ Childcare or Family Care: No Living arrangements: alone Additional living arrangements comments: He is single and has 3 children. 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 Spiritual care concerns: No Agree to blood products: Yes Meds Home Medications and Allergies Home Medications ?Medication ?Instructions ?Recorded ?Confirmed ?Type calcitriol 0.25 mcg capsule 0.25 mcg PO QAM 06/04/19 08/17/24 History ergocalciferol (vitamin D2) 1,250 50,000 unit PO WEEKLY 06/04/19 08/17/24 History mcg (50,000 unit) capsule (Vitamin D2) nitroglycerin 0.4 mg sublingual 0.4 mg sublingual Q5-15M PRN Chest 06/04/19 08/17/24 History tablet Pain ezetimibe 10 mg tablet (Zetia) 10 mg PO DAILY 09/09/19 08/17/24 History cetirizine 10 mg tablet (All Day 10 mg PO DAILY 12/26/19 08/17/24 History Allergy (cetirizine)) atorvastatin 80 mg tablet 80 mg PO DAILY 11/26/20 08/17/24 History albuterol sulfate 90 mcg/actuation 1 inh inhalation QID PRN shortness 01/12/23 08/17/24 Rx aerosol inhaler (ProAir HFA) of breath or wheezing #8.5 grams potassium chloride 20 mEq 20 meq PO DAILY PRN Cramps 05/20/23 08/17/24 History tablet,extended release febuxostat 40 mg tablet 40 mg PO QPM 07/25/23 08/17/24 History gemfibrozil 600 mg tablet 600 mg PO Q12H 07/25/23 08/17/24 History linaclotide 72 mcg capsule 72 mcg PO DAILY PRN Diarrhea 07/25/23 08/17/24 History (Linzess) icosapent ethyl 1 gram capsule 1 g PO Q12H 02/16/24 08/17/24 History (Vascepa) torsemide 100 mg tablet 100 mg PO DAILY 02/16/24 08/17/24 History warfarin 3 mg tablet 3 mg PO DAILY #30 tabs 03/01/24 08/17/24 Rx insulin NPH isoph U-100 human 100 10 unit (0.1 mL) subcut DAILY PRN 05/16/24 08/17/24 Rx unit/mL (3 mL) subcutaneous pen if insulin pump malfunction; (Humulin N NPH U-100 Insulin before dialysis #15 mL KwikPen) insulin lispro 100 unit/mL 100 unit continuous subcutaneous 05/16/24 08/17/24 Rx subcutaneous solution (Humalog infusion DAILY #100 mL U-100 Insulin) insulin pump cart,automated,BT #45 ea 05/16/24 08/17/24 Rx (Omnipod 5 G6 Pods (Gen 5) subcutaneous cartridge) levothyroxine 25 mcg tablet 25 mcg PO DAILY #90 tabs 05/16/24 08/17/24 Rx omeprazole 20 mg capsule,delayed 20 mg PO DAILY 06/06/24 08/17/24 History release amlodipine 10 mg tablet 10 mg PO HS 07/30/24 08/17/24 History calcium acetate(phosphat bind) 667 667 mg PO QID 07/30/24 08/17/24 History mg capsule erythromycin 5 mg/gram (0.5 %) eye 1 applic EACH EYE HS 07/30/24 08/17/24 History ointment glucagon 1 mg/0.2 mL subcutaneous See Rx Instructions .Route 07/30/24 08/17/24 History auto-injector (Gvoke HypoPen .COMPLEX PRN Hypoglycemia 2-Pack) warfarin 3 mg tablet 1.5 mg PO WEEKLY 07/30/24 08/17/24 History insulin aspart U-100 100 unit/mL 5 unit (0.05 mL) subcut TIDWMEAL 08/02/24 08/17/24 Rx (3 mL) subcutaneous pen (Novolog #15 mL FlexPen U-100 Insulin aspart) insulin glargine 100 unit/mL (3 10 unit (0.1 mL) subcut QPM #15 mL 08/02/24 08/17/24 Rx mL) subcutaneous pen (Lantus Solostar U-100 Insulin) pen needle, diabetic 32 gauge x #100 ea 08/05/24 08/17/24 Rx / (BD Lucrecia 2nd Gen Pen Needle) cyclobenzaprine 10 mg tablet 5 - 10 mg (0.5 - 1 x 10 mg) PO TID 08/11/24 08/17/24 Rx PRN muscle spasm #10 tabs promethazine 12.5 mg tablet 12.5 mg PO TID #10 tabs 08/11/24 08/17/24 Rx famotidine 40 mg tablet 40 mg PO HS 08/17/24 08/17/24 History lidocaine 5 % topical patch 1 patch transdermal Q24H 08/17/24 08/17/24 History metoprolol succinate 25 mg 25 mg PO DAILY 08/17/24 08/17/24 History tablet,extended release 24 hr Allergies Allergy/AdvReac Type Severity Reaction Status Date / Time allopurinol Allergy Severe Other Verified 08/17/24 08:24 iodine Allergy Severe Rash Verified 08/17/24 08:24 iohexol (From CONTRAST - CT, Allergy Severe Difficulty Verified 08/17/24 08:24 XRAY) Breathing ticagrelor Allergy Intermediate Rash Verified 08/17/24 08:24 Vital Signs Vital Signs - 24 hr 08/16/24 18:07 08/17/24 02:46 08/17/24 07:15 Temperature 98.0 F 98.5 F Pulse Rate 119 H 121 H 96 Respiratory Rate 20 18 13 Blood Pressure 118/71 135/77 135/79 Pulse Oximetry 100 99 96 Oxygen Delivery Room Air 08/17/24 08:00 08/17/24 08:24 08/17/24 10:36 Temperature Pulse Rate 115 H 115 H 112 H Respiratory Rate 13 14 Blood Pressure 127/80 117/83 Pulse Oximetry 98 96 Oxygen Delivery 08/17/24 13:43 Temperature Pulse Rate 112 H Respiratory Rate 19 Blood Pressure 116/78 Pulse Oximetry 99 Oxygen Delivery Exam Narrative: General: well appearing, appears stated age. HEENT: normocephalic, atraumatic. Mucous membranes moist. EOMI, PERRLA, bilateral sclera anicteric, no conjunctival injection. Neck supple without JVD, lymphadenopathy, or bruit. Respiratory: clear to ascultation bilaterally. No rales/rhonic/wheezes. Cardiovascular: Regular rate and rhythm, normal S1-S2 upon ascultation. No murmurs, rubs, or clicks. PMI is nondisplaced, capillary refill less than 3 second. Abdomen: Soft, round, no pulsatile masses, nondistended and nontender. No rebound, no guarding. No CVA tenderness, no hepatosplenomegaly. Bowel sounds present to all four quadrants. No high pitch or tinkling sounds, resonant to percussion. PD Cath Extremities: No cyanosis, clubbing, or edema present. Pulses are palpable 2/2. Active ROM to all four extremities. Neuro: Alert and orientated x 4. PERRLA. Cranial nerves 2-12 intact without focal deficit. Skin: Warm, dry, and intact, without rash, erythema, or lesion. Psych: pleasant, cooperative, normal speech, normal affect, no hallucinations, no dysarthia H&P: Results Labs Labs: Short CBC 08/16/24 08/17/24 Range/Units 20:29 12:23 WBC 4.9 4.3 L (4.5-10.0) K/mm3 Hgb 11.8 L 11.2 L (14.0-18.0) g/dL Hct 36.3 L 34.5 L (42.0-52.0) % Plt Count 205 201 (150-375) k/mm3 BMP 08/16/24 08/17/24 20:29 12:23 Sodium 132 L 131 L Potassium 5.2 H 5.4 H Chloride 95 L 98 Carbon Dioxide 28 25 BUN 83 H D 84 H Creatinine 11.10 H 11.20 H Glucose 162 H 172 H Calcium 8.9 8.2 L Cardiac Enzymes 08/16/24 08/17/24 Range/Units 20:29 04:17 Troponin I 0.039 H* 0.045 H* (0.000-0.034) ng/mL Liver Function 08/16/24 08/17/24 Range/Units 20:29 12:23 Total Bilirubin 0.5 0.5 (0.2-1.3) mg/dL AST 30 30 (17-59) U/L ALT 27 27 (6-50) U/L Alkaline Phosphatase 86 79 (38-126) U/L Albumin 3.8 3.5 (3.5-5.1) g/dL Urine 08/16/24 Range/Units 20:29 Urine Color Yellow (Yellow) Urine Appearance Cloudy H (Clear) Urine pH 6.0 (5.0-9.0) Ur Specific [place] 1.023 (1.001-1.035) Urine Protein 3+ H (Negative) mg/dL Urine Glucose (UA) 2+ H (Negative) mg/dL Assessment and Plan Assessment and plan (1) Hematuria: Code(s): R31.9 - Hematuria, unspecified Status: Acute Assessment and Plan: Could be due to warfarin versus other Patient on warfarin CABG x3 September 2023 Urology consulted UA pending (2) ESRD on peritoneal dialysis: Code(s): N18.6 - End stage renal disease; Z99.2 - Dependence on renal dialysis Status: Acute Assessment and Plan: Nephrology consulted Nightly PD Renal diet Continue phosphate binders and calcitriol (3) Hyperkalemia: Code(s): E87.5 - Hyperkalemia Status: Acute Assessment and Plan: Secondary to missing peritoneal dialysis last night Manage by PD Continue to monitor Hold home p.o. potassium replacement (4) Congestive heart failure: Qualifiers: Heart failure chronicity: acute on chronic Heart failure type: unspecified Qualified Code(s): I50.9 - Heart failure, unspecified Code(s): I50.9 - Heart failure, unspecified Status: Acute Assessment and Plan: Appears to be euvolemic, was given 1 L bolus in ED Managed by PD Monitor for fluid overload Continue home torsemide (5) Type 1 diabetes mellitus with hyperglycemia: Code(s): E10.65 - Type 1 diabetes mellitus with hyperglycemia Status: Acute Assessment and Plan: Okay for patient to wear home monitor and insulin pump Monitor blood sugars a.c. and HS Nurse monitor blood sugars (6) ACS (acute coronary syndrome): Code(s): I24.9 - Acute ischemic heart disease, unspecified Status: Acute Assessment and Plan: History of CABG x3 in September 2023 Continue Vascepa, metoprolol, nitro, zetia Holding home warfarin till evaluated by Urology INR 3.0 on admission (7) Paroxysmal atrial fibrillation: Code(s): I48.0 - Paroxysmal atrial fibrillation Status: Acute Assessment and Plan: Continue home metoprolol Holding home warfarin until evaluated by Urology Plan No pneumonia seen on CT antibiotic stopped Quality VTE Prophylaxis VTE prophylaxis: mechanical ordered Hospitalist [facility] Advance Care Plan I have confirmed that the patient's Advanced Care Plan is present, code status is documented, or surrogate decision maker is listed in patient medical record.: Yes Medication Reconciliation I have utilized all available resources to obtain, update and review the patients current medications (includes all prescriptions, OTC, herbals, cannabis, and nutritional supplements).: Yes
--- NOTE | 2024-08-17 16:29 | ADMGEN ---
This patient, Juvenal Daigle Jr., was admitted to IMU Room 213-01 on 08/17/24 at 1440. Patient/family oriented to hospital policies and general routines including ID bracelet, bed and alarms, visiting hours, pain management, procedures, bathroom and other care routines, personal items, smoking policy, room service/diet, and visiting hours. Information on how to activate the Rapid Response Team has been discussed. Patient/Family are encouraged to report perceived risks to care and to ask questions if they do not understand what they are told or what they should do.
[2024-08-17 16:31] LABS: Glucose Point of Care 231 mg/dl (65-105)
[2024-08-17 20:13] LABS: Glucose Point of Care 380 mg/dl (65-105)
[2024-08-17 20:35] LABS: MRSA (PCR) NOT DETECTED (NOT DETECTE)
[2024-08-17 21:15] LABS: Bacteria Urine None Seen /hpf; RBC Urine >100 /hpf (0-2); Squamous Epithelial Cell Urine None Seen /hpf (Few); WBC Urine 21-50 /hpf (0-3)
[2024-08-17] MEDS: OMEGA 3 POLYUNSAT FATTY ACIDS 1 GM CAP PO (21:21)
[2024-08-17] MEDS: amLODIPine BESYLATE 10 MG TABLET PO (21:21)
[2024-08-17] MEDS: FAMOTIDINE 20 MG TABLET 40 MG PO (21:21)
[2024-08-17] MEDS: CALCIUM ACETATE 667 MG TABLET PO (21:21)
--- NOTE | 2024-08-17 21:41 | ECG_ITS ---
Test Date: 2024-08-17 21:55:37 Measurements Intervals [place] Rate: 111 P: 243 ND: 177 QRS: -46 QRSD: 153 T: 132 QT: 364 QTc: 495 Interpretive Statements ECTOPIC ATRIAL TACHYCARDIA /FLUTTER MARKED LEFT AXIS DEVIATION [QRS AXIS < -30] INTRAVENTRICULAR CONDUCTION DELAY [130+ ms QRS DURATION] ABNORMAL ECG Electronically Signed On 08-18-2024 09:00:45 DIRECTOR VACCINE by Carrington Weeks M.D.
[2024-08-17] MEDS: WARFARIN (*PBKC) 3 MG TABLET PO (21:49)
[2024-08-17 21:50] LABS: Add Urine Microscopic? YES; Appearance Urine Clear (Clear); Bilirubin Urine Negative (Negative); Blood Urine 3+ (Negative); Glucose Urine UA 2+ mg/dL (Negative); Ketones Urine Negative (Negative); Leukocyte Esterase Ur Negative LEU/UL (Negative); Need Manual Microscopic Reviewed; Nitrate Urine Negative (Negative); Protein Urine 2+ mg/dL (Negative); Urobilinogen Urine 0.2 mg/dL (<2.0)
[2024-08-17 21:52] LABS: Color Urine Light Red (Yellow)
[2024-08-17] MEDS: HYDROcodone/acetaminophen (*CRX) 10-325 MG TABLET 1 TAB PO (23:06)
[2024-08-17] MEDS: TRIMETHOBENZAMIDE HCL 200 MG/2 ML VIAL IM (23:06)
[2024-08-18] VITALS (16 sets, daily range): BP systolic 116–125; BP diastolic 72–84; PULSE 112–115; RESP 12–20; TEMP 36.4–36.7; O2SAT 96–100
[2024-08-18 03:41] LABS: Glucose Point of Care 182 mg/dl (65-105)
[2024-08-18 05:15] LABS: INR 2.6; Prothrombin Time 28.4 Seconds (11.1-14.7)
[2024-08-18] MEDS: LEVOTHYROXINE SODIUM 25 MCG TABLET PO (06:53)
--- NOTE | 2024-08-18 08:30 | WPDURCON ---
Assessment and Plan Assessment and plan (1) ACS (acute coronary syndrome): Code(s): I24.9 - Acute ischemic heart disease, unspecified Status: Acute (2) Hematuria: Code(s): R31.9 - Hematuria, unspecified Status: Acute Assessment and Plan: Hematuria likely secondary to hyper-anticoagulation with a possible lower urinary tract infection. Continue ceftriaxone pending culture results He will need to follow-up as an outpatient to see if hematuria resolves. If not he may require office cystoscopy (3) ESRD on peritoneal dialysis: Code(s): N18.6 - End stage renal disease; Z99.2 - Dependence on renal dialysis Status: Acute Urology Consult Note HPI Date Seen: 08/18/24 Requesting Physician: Santosh Lockwood MD Primary Care Provider: Aditya CastroMD Consult Narrative Narrative: Juvenal Daigle Jr. is a 54 year old male who is known to Dr. Maki with a history of urethral stricture requiring dilatation in the past. He has end-stage renal disease and performs peritoneal dialysis. He is chronically anticoagulated and presents to the emergency department with chest pain. While obtaining a urinalysis in the emergency department he noted scant hematuria. He does report mild dysuria. He has no history of recurrent urinary tract infection or other episodes of hematuria. CT scan of the abdomen and pelvis showed normal upper urinary tracts. Review of Systems Review of Systems: All systems reviewed & are unremarkable except as noted in HPI and below PMFSH Past Medical History Medical History (Updated 08/17/24 @ 19:08 by Jennifer Mustafa, [employer]) Hematuria Right hand dominant Insulin dependent diabetes mellitus Chronic anticoagulation Paroxysmal atrial fibrillation Renal osteodystrophy Seizure X1 with etiology unknown End-stage renal disease on peritoneal dialysis Essential hypertension Gout Deep venous thrombosis Chronic right popliteal DVT. Coronary artery disease History of several stents including complex procedure at [facility], [place]/ stenting of a heavily calcified CX on OM using shockwave treatment. Gastroesophageal reflux disease Congestive heart failure Echocardiogram May 2017 EF of 50% with hypokinetic apical, inferior and basal inferior lateral segment, mild enlargement of left atrium. Anemia in chronic kidney disease Type 1 diabetes mellitus Onset around age 13. Diabetic retinopathy Diabetic peripheral neuropathy Obstructive sleep apnea With inconsistent CPAP use. Secondary hyperparathyroidism of renal origin Anxiety Arthritis Hyperlipidemia Surgical History Surgical History S/P triple vessel bypass Sep 2023; [facility] History of coronary angioplasty with insertion of stent Drug-eluting stents for high-grade OM 99% occlusion 05/2022. History of hernia repair Peritoneal dialysis catheter in place History of cataract extraction With lens implant History of open reduction and internal fixation (ORIF) procedure (1982) Left lower extremity fracture. And the right hip pinning when he was in the 8th grade History of arthroscopy of left knee History of anterior cruciate ligament surgery (2000) Left knee History of bilateral carpal tunnel release Right 05/03/2018. Left 06/02/2018. History of appendectomy (2006) History of cardiac catheterization 01/21/2021 catheterization at [facility], Dr. Hoover done: Little change from prior catheterization. Patent stents in the RCA and PDA. Previously jailed posterolateral is occluded and development of a 50% stenosis of a branch of om 1. Normal LV function. :August 2019 demonstrated patent stents with 40% stenosis of 1 vessel with no stents or angioplasty performed per patient report. :November 2018 at [facility] - stent x3. :March 2017 demonstrating mild diffuse coronary disease 80% lesion small sub branch of obtuse marginal 1 and 90% stenosis distal RCA into the origin of the PDA with PTCA and stent to the RPDA/distal RCA performed by Dr. Petit. Family History Family History Father , in his late 60s Acute myocardial infarction Premature coronary artery disease; <65yo CHF (congestive heart failure) Dementia Hypertension S/P triple vessel bypass Mother Lung cancer Hypertension Daughter Celiac disease Social History Social History Social History: Surrogate medical decision maker: Hodanaldo Daigle (daughter) or Lorne Daigle (brother). Code status: Full code. Smoking status: Never smoker Second hand tobacco smoke exposure: No Alcohol intake: never Substance use: never Substance use type: does not use Do You Feel Safe in your Home?: Yes Lack of Transportation: No Lack of Food: Sometimes True Current Housing: I Have Housing Concerned About Future Housing: No Difficulty Paying Gas/Electric Bills: No Difficulty Paying for Meds: YES Currently Unemployed: No Education: High School Diploma/GED Difficulty w/ Childcare or Family Care: No Living arrangements: alone Additional living arrangements comments: He is single and has 3 children. 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 Spiritual care concerns: No Agree to blood products: Yes Meds Home Medications and Allergies Home Medications ?Medication ?Instructions ?Recorded ?Confirmed ?Type calcitriol 0.25 mcg capsule 0.25 mcg PO QAM 06/04/19 08/17/24 History ergocalciferol (vitamin D2) 1,250 50,000 unit PO WEEKLY 06/04/19 08/17/24 History mcg (50,000 unit) capsule (Vitamin D2) nitroglycerin 0.4 mg sublingual 0.4 mg sublingual Q5-15M PRN Chest 06/04/19 08/17/24 History tablet Pain ezetimibe 10 mg tablet (Zetia) 10 mg PO DAILY 09/09/19 08/17/24 History cetirizine 10 mg tablet (All Day 10 mg PO DAILY 12/26/19 08/17/24 History Allergy (cetirizine)) atorvastatin 80 mg tablet 80 mg PO DAILY 11/26/20 08/17/24 History albuterol sulfate 90 mcg/actuation 1 inh inhalation QID PRN shortness 01/12/23 08/17/24 Rx aerosol inhaler (ProAir HFA) of breath or wheezing #8.5 grams potassium chloride 20 mEq 20 meq PO DAILY PRN Cramps 05/20/23 08/17/24 History tablet,extended release febuxostat 40 mg tablet 40 mg PO QPM 07/25/23 08/17/24 History gemfibrozil 600 mg tablet 600 mg PO Q12H 07/25/23 08/17/24 History linaclotide 72 mcg capsule 72 mcg PO DAILY PRN Diarrhea 07/25/23 08/17/24 History (Linzess) icosapent ethyl 1 gram capsule 1 g PO Q12H 02/16/24 08/17/24 History (Vascepa) torsemide 100 mg tablet 100 mg PO DAILY 02/16/24 08/17/24 History warfarin 3 mg tablet 3 mg PO DAILY #30 tabs 03/01/24 08/17/24 Rx insulin NPH isoph U-100 human 100 10 unit (0.1 mL) subcut DAILY PRN 05/16/24 08/17/24 Rx unit/mL (3 mL) subcutaneous pen if insulin pump malfunction; (Humulin N NPH U-100 Insulin before dialysis #15 mL KwikPen) insulin lispro 100 unit/mL 100 unit continuous subcutaneous 05/16/24 08/17/24 Rx subcutaneous solution (Humalog infusion DAILY #100 mL U-100 Insulin) insulin pump cart,automated,BT #45 ea 05/16/24 08/17/24 Rx (Omnipod 5 G6 Pods (Gen 5) subcutaneous cartridge) levothyroxine 25 mcg tablet 25 mcg PO DAILY #90 tabs 05/16/24 08/17/24 Rx omeprazole 20 mg capsule,delayed 20 mg PO DAILY 06/06/24 08/17/24 History release amlodipine 10 mg tablet 10 mg PO HS 07/30/24 08/17/24 History calcium acetate(phosphat bind) 667 667 mg PO QID 07/30/24 08/17/24 History mg capsule erythromycin 5 mg/gram (0.5 %) eye 1 applic EACH EYE HS 07/30/24 08/17/24 History ointment glucagon 1 mg/0.2 mL subcutaneous See Rx Instructions .Route 07/30/24 08/17/24 History auto-injector (Gvoke HypoPen .COMPLEX PRN Hypoglycemia 2-Pack) warfarin 3 mg tablet 1.5 mg PO WEEKLY 07/30/24 08/17/24 History insulin aspart U-100 100 unit/mL 5 unit (0.05 mL) subcut TIDWMEAL 08/02/24 08/17/24 Rx (3 mL) subcutaneous pen (Novolog #15 mL FlexPen U-100 Insulin aspart) insulin glargine 100 unit/mL (3 10 unit (0.1 mL) subcut QPM #15 mL 08/02/24 08/17/24 Rx mL) subcutaneous pen (Lantus Solostar U-100 Insulin) pen needle, diabetic 32 gauge x #100 ea 08/05/24 08/17/24 Rx / (BD Lucrecia 2nd Gen Pen Needle) cyclobenzaprine 10 mg tablet 5 - 10 mg (0.5 - 1 x 10 mg) PO TID 08/11/24 08/17/24 Rx PRN muscle spasm #10 tabs promethazine 12.5 mg tablet 12.5 mg PO TID #10 tabs 08/11/24 08/17/24 Rx famotidine 40 mg tablet 40 mg PO HS 08/17/24 08/17/24 History lidocaine 5 % topical patch 1 patch transdermal Q24H 08/17/24 08/17/24 History metoprolol succinate 25 mg 25 mg PO DAILY 08/17/24 08/17/24 History tablet,extended release 24 hr Allergies Allergy/AdvReac Type Severity Reaction Status Date / Time allopurinol Allergy Severe Other Verified 08/17/24 08:24 iodine Allergy Severe Rash Verified 08/17/24 08:24 iohexol (From CONTRAST - CT, Allergy Severe Difficulty Verified 08/17/24 08:24 XRAY) Breathing ticagrelor Allergy Intermediate Rash Verified 08/17/24 08:24 Vital Signs Vital Signs - 24 hr 08/17/24 10:36 08/17/24 13:43 08/17/24 14:40 Temperature 97.6 F Pulse Rate 112 H 112 H 110 H Respiratory Rate 14 19 16 Blood Pressure 117/83 116/78 123/68 Pulse Oximetry 96 99 100 Oxygen Delivery 08/17/24 14:40 08/17/24 14:43 08/17/24 16:00 Temperature Pulse Rate 111 H 110 H Respiratory Rate Blood Pressure Pulse Oximetry Oxygen Delivery Room Air 08/17/24 18:00 08/17/24 20:00 08/17/24 20:00 Temperature 97.7 F Pulse Rate 106 H 108 H 111 H Respiratory Rate 12 Blood Pressure 125/76 Pulse Oximetry 97 Oxygen Delivery 08/17/24 21:30 08/17/24 22:00 08/17/24 23:45 Temperature 97.6 F Pulse Rate 108 H 74 Respiratory Rate 20 Blood Pressure 129/82 Pulse Oximetry 99 Oxygen Delivery Room Air 08/18/24 00:00 08/18/24 00:00 08/18/24 02:00 Temperature Pulse Rate 112 H 112 H Respiratory Rate Blood Pressure Pulse Oximetry Oxygen Delivery Room Air 08/18/24 04:00 08/18/24 04:00 08/18/24 04:00 Temperature 97.6 F Pulse Rate 114 H 113 H Respiratory Rate 14 Blood Pressure 124/84 Pulse Oximetry 99 Oxygen Delivery Room Air 08/18/24 06:00 08/18/24 07:50 08/18/24 07:57 Temperature 97.7 F 97.7 F Pulse Rate 114 H 115 H 115 H Respiratory Rate 16 16 Blood Pressure 125/79 125/79 Pulse Oximetry 97 Oxygen Delivery Results Labs 08/17/24 12:23 08/17/24 12:23 Labs: Short CBC 08/17/24 Range/Units 12:23 WBC 4.3 L (4.5-10.0) K/mm3 Hgb 11.2 L (14.0-18.0) g/dL Hct 34.5 L (42.0-52.0) % Plt Count 201 (150-375) k/mm3 BMP 08/17/24 12:23 Sodium 131 L Potassium 5.4 H Chloride 98 Carbon Dioxide 25 BUN 84 H Creatinine 11.20 H Glucose 172 H Calcium 8.2 L Liver Function 08/17/24 Range/Units 12:23 Total Bilirubin 0.5 (0.2-1.3) mg/dL AST 30 (17-59) U/L ALT 27 (6-50) U/L Alkaline Phosphatase 79 (38-126) U/L Albumin 3.5 (3.5-5.1) g/dL Urine 08/17/24 Range/Units 21:03 Urine Color Light red H (Yellow) Urine Appearance Clear (Clear) Urine pH 6.0 (5.0-9.0) Ur Specific [place] 1.020 (1.001-1.035) Urine Protein 2+ H (Negative) mg/dL Urine Glucose (UA) 2+ H (Negative) mg/dL
[2024-08-18] MEDS: OMEGA 3 POLYUNSAT FATTY ACIDS 1 GM CAP PO ×2 (08:42→21:31)
[2024-08-18] MEDS: ATORVASTATIN 40 MG TABLET 80 MG PO (08:42)
[2024-08-18] MEDS: HOME MEDICATION 1 EACH XX (08:43)
[2024-08-18] MEDS: calcitrioL 0.25 MCG CAPSULE PO (08:43)
[2024-08-18] MEDS: EZETIMIBE 10 MG TABLET PO (08:43)
[2024-08-18] MEDS: METOPROLOL SUCCINATE EXT REL 25 MG TABCR PO (08:43)
[2024-08-18] MEDS: CALCIUM ACETATE 667 MG TABLET PO ×4 (08:43→21:31)
[2024-08-18] MEDS: TORSEMIDE 20 MG TABLET 100 MG PO (08:44)
[2024-08-18 08:46] LABS: Glucose Point of Care 122 mg/dl (65-105)
--- NOTE | 2024-08-18 09:53 | P.PNIM_ITS ---
Progress Note: A&P Assessment and Plan (1) Hematuria: Code(s): R31.9 - Hematuria, unspecified Status: Acute Assessment and Plan: Could be due to warfarin versus other Patient on warfarin CABG x3 September 2023 Urology consulted: * Hematuria likely secondary to hyper-anticoagulation with a possible lower urinary tract infection. * Continue ceftriaxone pending culture results * He will need to follow-up as an outpatient to see if hematuria resolves. If not he may require office cystoscopy UA collected (2) ESRD on peritoneal dialysis: Code(s): N18.6 - End stage renal disease; Z99.2 - Dependence on renal dialysis Status: Acute Assessment and Plan: Nephrology consulted Nightly PD Renal diet Continue phosphate binders and calcitriol (3) Hyperkalemia: Code(s): E87.5 - Hyperkalemia Status: Acute Assessment and Plan: Secondary to missing peritoneal dialysis last night Manage by PD Continue to monitor Hold home p.o. potassium replacement- monitor labs (4) Congestive heart failure: Qualifiers: Heart failure chronicity: acute on chronic Heart failure type: unspecified Qualified Code(s): I50.9 - Heart failure, unspecified Code(s): I50.9 - Heart failure, unspecified Status: Acute Assessment and Plan: Appears to be euvolemic, was given 1 L bolus in ED Managed by PD Monitor for fluid overload Continue home torsemide (5) Type 1 diabetes mellitus with hyperglycemia: Code(s): E10.65 - Type 1 diabetes mellitus with hyperglycemia Status: Acute Assessment and Plan: Okay for patient to wear home monitor and insulin pump Monitor blood sugars a.c. and Nurse monitor blood sugars/AccuCheck-maintain records per protocol hypoglycemic protocol (6) ACS (acute coronary syndrome): Code(s): I24.9 - Acute ischemic heart disease, unspecified Status: Acute Assessment and Plan: History of CABG x3 in September 2023 Continue Vascepa, metoprolol, nitro, zetia Holding home warfarin till evaluated by Urology INR 3.0 on admission (7) Paroxysmal atrial fibrillation: Code(s): I48.0 - Paroxysmal atrial fibrillation Status: Acute Assessment and Plan: Continue home metoprolol Holding home warfarin until evaluated by Urology Plan No pneumonia seen on CT antibiotic stopped Time Spent With Patient Time with patient: Greater than 35 minutes Subjective Date/time seen: 08/18/24 09:53 Interval history: Left chest pain and hematuria Narrative: 54-year-old man well known to [facility] on peritoneal dialysis, type 1 diabetes awaiting a renal transplant diabetes, CHF, hypertension, CAD post CABG presents the hospital for left chest pain and hematuria. The patient came into the ED yesterday and stayed waiting room overnight missing his normal peritoneal dialysis. Patient states that his left-sided chest pain radiates to the back and is worse whenever he coughs. Patient has other complaints of general malaise and dizziness when he moves his head too fast. While patient was in the emergency room he had troponins drawn which were below his normal baseline and his EKG did not show any ischemia. CT of chest abdomen pelvis showed an unchanged small left pleural effusion. Peritoneal dialysis catheter with small amount of fluid in the lower abdomen unchanged, periumbilical edema unchanged, and cholelithiasis. Blood cultures x2 are pending, urine culture pending. Patient's INR is 3.0. He was given Rocephin, doxycycline and 1 L fluid bolus in the emergency room. Patient being admitted for lissa hematuria, creatinine above baseline and per itoneal dialysis. Pt is seen and examined. Urology consulted. pt is resting in bed, denies any acute issues- reports some mid back pian but that is his chronic on/off issues. Review of Systems Review of Systems: 12 systems were reviewed and are negativ e except for as per HPI. Exam Narrative: General: well appearing, appears stated age. HEENT: normocephalic, atraumatic. Mucous membranes moist. EOMI, PERRLA, bilateral sclera anicteric, no conjunctival injection. Neck supple without JVD, lymphadenopathy, or bruit. Respiratory: clear to ascultation bilaterally. No rales/rhonic/wheezes. Cardiovascular: Regular rate and rhythm, normal S1-S2 upon ascultation. No murmurs, rubs, or clicks. PMI is nondisplaced, capillary refill less than 3 second. Abdomen: Soft, round, no pulsatile masses, nondistended and nontender. No rebound, no guarding. No CVA tenderness, no hepatosplenomegaly. Bowel sounds present to all four quadrants. No high pitch or tinkling sounds, resonant to percussion. PD Cath Extremities: No cyanosis, clubbing, or edema present. Pulses are palpable 2/2. Active ROM to all four extremities. Neuro: Alert and orientated x 4. PERRLA. Cranial nerves 2-12 intact without focal deficit. Skin: Warm, dry, and intact, without rash, erythema, or lesion. Psych: pleasant, cooperative, normal speech, normal affect, no hallucinations, no dysarthia Objective Data Vital Signs Vital Signs: Vital Signs - 24 hr 08/17/24 10:36 08/17/24 13:43 08/17/24 14:40 Temperature 97.6 F Pulse Rate 112 H 112 H 110 H Respiratory Rate 14 19 16 Blood Pressure 117/83 116/78 123/68 Pulse Oximetry 96 99 100 Oxygen Delivery 08/17/24 14:40 08/17/24 14:43 08/17/24 16:00 Temperature Pulse Rate 111 H 110 H Respiratory Rate Blood Pressure Pulse Oximetry Oxygen Delivery Room Air 08/17/24 18:00 08/17/24 20:00 08/17/24 20:00 Temperature 97.7 F Pulse Rate 106 H 108 H 111 H Respiratory Rate 12 Blood Pressure 125/76 Pulse Oximetry 97 Oxygen Delivery 08/17/24 21:30 08/17/24 22:00 08/17/24 23:45 Temperature 97.6 F Pulse Rate 108 H 74 Respiratory Rate 20 Blood Pressure 129/82 Pulse Oximetry 99 Oxygen Delivery Room Air 08/18/24 00:00 08/18/24 00:00 08/18/24 02:00 Temperature Pulse Rate 112 H 112 H Respiratory Rate Blood Pressure Pulse Oximetry Oxygen Delivery Room Air 08/18/24 04:00 08/18/24 04:00 08/18/24 04:00 Temperature 97.6 F Pulse Rate 114 H 113 H Respiratory Rate 14 Blood Pressure 124/84 Pulse Oximetry 99 Oxygen Delivery Room Air 08/18/24 06:00 08/18/24 07:50 08/18/24 07:57 Temperature 97.7 F 97.7 F Pulse Rate 114 H 115 H 115 H Respiratory Rate 16 16 Blood Pressure 125/79 125/79 Pulse Oximetry 97 Oxygen Delivery 08/18/24 08:43 Temperature Pulse Rate 115 H Respiratory Rate Blood Pressure Pulse Oximetry Oxygen Delivery Intake/Output Intake/Output: Intake & Output 08/15/24 08/16/24 08/17/24 08/18/24 23:59 23:59 23:59 23:59 Intake Total 2340 250 Output Total 300 585 Balance 2048 -660 Meds/Results Medications: Active Medications Generic Name Dose Route Start Last Admin Trade Name Freq PRN Reason Stop Dose Admin Hydrocodone Bitart/Acetaminophen 1 tab 08/17/24 22:01 08/17/24 23:06 Hydrocodone/Acetaminophen (*Crx) 10-325 Mg Tablet PO 1 tab Q4H PRN Administration Pain Rated 7-10 Hydrocodone Bitart/Acetaminophen 1 tab 08/17/24 22:01 Hydrocodone/Acetaminophen (*Crx) 5-325 Mg Tablet PO Q4H PRN Pain Rated 4-6 Albuterol 1 puff 08/17/24 18:58 Albuterol Sulfate (*Sp) Aerosol 1 Puff INHALATION QID PRN shortness of breath or wheezing Amlodipine Besylate 10 mg 08/17/24 21:00 08/17/24 21:21 Amlodipine Besylate 10 Mg Tablet PO 10 mg HS ASHLEY Administration Atorvastatin Calcium 80 mg 08/18/24 09:00 08/18/24 08:42 Atorvastatin 40 Mg Tablet PO 80 mg DAILY ASHLEY Administration Calcitriol 0.25 mcg 08/18/24 09:00 08/18/24 08:43 Calcitriol 0.25 Mcg Capsule PO 0.25 mcg QAM ASHLEY Administration Calcium Acetate 667 mg 08/17/24 21:00 08/18/24 08:43 Calcium Acetate 667 Mg Tablet PO 667 mg QID ASHLEY Administration Dextrose 12.5 gm 08/17/24 19:16 Dextrose 50% 25 Gm/50 Ml Syringe IV PUSH PRN PRN Hypoglycemia Protocol Ezetimibe 10 mg 08/18/24 09:00 08/18/24 08:43 Ezetimibe 10 Mg Tablet PO 10 mg DAILY ASHLEY Administration Famotidine 40 mg 08/17/24 21:00 08/17/24 21:21 Famotidine 20 Mg Tablet PO 40 mg HS ASHLEY Administration Febuxostat 40 mg 08/18/24 18:00 Febuxostat 40 Mg Tablet PO QPM ASHLEY Fish Oil 1 gm 08/17/24 21:00 08/18/24 08:42 [place] 3 Polyunsat Fatty Acids 1 Gm Cap PO 1 gm Q12H ASHLEY Administration Glucagon 1 mg 08/17/24 19:16 Glucagon For Inj 1 Mg Vial IM PRN PRN Hypoglycemia Protocol Glucose 15 gm 08/17/24 19:16 Glucose Oral Gel 15 Gm Of Glucse In 37.5 Gm Tube PO PRN PRN Hypoglycemia Protocol Home Med 1 each 08/18/24 06:00 08/18/24 08:43 Home Medication XX 09/17/24 05:59 1 each DAILY@0600 ASHLEY Administration Dextrose 1,000 mls @ 100 mls/hr 08/17/24 19:16 Dextrose 5% 1,000 Ml IVPB PRN PRN Hypoglycemia Protocol Levothyroxine Sodium 25 mcg 08/18/24 06:30 08/18/24 06:53 Levothyroxine Sodium 25 Mcg Tablet PO 25 mcg DAILY@0630 ASHLEY Administration Metoprolol Succinate 25 mg 08/18/24 09:00 08/18/24 08:43 Metoprolol Succinate Ext Rel 25 Mg Tabcr PO 25 mg DAILY ASHLEY Administration Nitroglycerin 0.4 mg 08/17/24 19:04 Nitroglycerin Sl 0.4 Mg Tablet SUBLINGUAL Q5M PRN Chest Pain Torsemide 100 mg 08/18/24 09:00 08/18/24 08:44 Torsemide 20 Mg Tablet PO 100 mg DAILY ASHLEY Administration Trimethobenzamide HCl 200 mg 08/17/24 22:02 08/17/24 23:06 Trimethobenzamide Hcl 200 Mg/2 Ml Vial IM 200 mg Q6H PRN Administration Nausea And Vomiting Warfarin Sodium 3 mg 08/17/24 19:40 08/17/24 21:49 Warfarin (*Pbkc) 3 Mg Tablet PO 3 mg [id number]@1700 ASHLEY Administration Radiology Results: ITS Impressions Chest X-Ray 08/16/24 19:10 IMPRESSION: Left basal atelectasis versus pneumonia with minimal effusion. Chest/Abdomen/Pelvis CT 08/17/24 09:08 IMPRESSION: 1. Unchanged small left pleural effusion. 2. Peritoneal dialysis catheter with unchanged small amount of ascites in the abdomen and pelvis and a small amount of ascites tracking along the dialysis catheter in the left lower quadrant anterior abdominal wall. 3. Persistent severe periumbilical edema with overlying skin thickening. Correlate clinically for cellulitis. 4. Cholelithiasis. Labs Labs: Laboratory Results - last 24 hr 08/17/24 08/17/24 08/17/24 09:33 12:23 16:27 WBC 4.3 L RBC 3.64 L Hgb 11.2 L Hct 34.5 L MCV 94.8 MCH 30.8 MCHC 32.5 RDW 14.8 H Plt Count 201 MPV 9.8 Immature Gran % (Auto) 0.2 Neut % (Auto) 53.9 Lymph % (Auto) 25.5 [place] % (Auto) 15.3 H Eos % (Auto) 4.6 H Baso % (Auto) 0.5 Lymph # (Auto) 1.10 [place] # (Auto) 0.7 H Eos # (Auto) 0.2 Baso # (Auto) 0.0 Abs Immat Gran (auto) 0.01 Absolute Neuts (auto) 2.3 Absolute Nucleated RBC 0.000 Nucleated RBC % 0.0 PT 31.6 H D INR 3.0 APTT 73.3 H Sodium 131 L Potassium 5.4 H Chloride 98 Carbon Dioxide 25 Anion Gap 8 BUN 84 H Creatinine 11.20 H Estim Creat Clear Calc 9 Estimated GFR 5 L Glucose 172 H POC Capillary Glucose 231 H Calcium 8.2 L Total Bilirubin 0.5 AST 30 ALT 27 Alkaline Phosphatase 79 Total Protein 7.0 Albumin 3.5 Urine Color Urine Appearance Urine pH Ur Specific [place] Urine Protein Urine Glucose (UA) Urine Ketones Ur Blood (Man) Urine Nitrate Urine Bilirubin Urine Urobilinogen Ur Leukocyte Esterase Add Ur Microanalysis Urine RBC Urine WBC Ur Squamous Epith Cells Urine Bacteria Urine Casts Nasal MRSA (PCR) 08/17/24 08/17/24 08/17/24 18:07 20:06 21:03 WBC RBC Hgb Hct MCV MCH MCHC RDW Plt Count MPV Immature Gran % (Auto) Neut % (Auto) Lymph % (Auto) [place] % (Auto) Eos % (Auto) Baso % (Auto) Lymph # (Auto) [place] # (Auto) Eos # (Auto) Baso # (Auto) Abs Immat Gran (auto) Absolute Neuts (auto) Absolute Nucleated RBC Nucleated RBC % PT INR APTT Sodium Potassium Chloride Carbon Dioxide Anion Gap BUN Creatinine Estim Creat Clear Calc Estimated GFR Glucose POC Capillary Glucose 380 H Calcium Total Bilirubin AST ALT Alkaline Phosphatase Total Protein Albumin Urine Color Light red H Urine Appearance Clear Urine pH 6.0 Ur Specific [place] 1.020 Urine Protein 2+ H Urine Glucose (UA) 2+ H Urine Ketones Negative Ur Blood (Man) 3+ H Urine Nitrate Negative Urine Bilirubin Negative Urine Urobilinogen 0.2 Ur Leukocyte Esterase Negative Add Ur Microanalysis Reviewed Urine RBC >100 H Urine WBC 21-50 H Ur Squamous Epith Cells None seen Urine Bacteria None seen Urine Casts 3-5 Nasal MRSA (PCR) Not detected 08/18/24 08/18/24 08/18/24 03:36 04:25 07:47 WBC RBC Hgb Hct MCV MCH MCHC RDW Plt Count MPV Immature Gran % (Auto) Neut % (Auto) Lymph % (Auto) [place] % (Auto) Eos % (Auto) Baso % (Auto) Lymph # (Auto) [place] # (Auto) Eos # (Auto) Baso # (Auto) Abs Immat Gran (auto) Absolute Neuts (auto) Absolute Nucleated RBC Nucleated RBC % PT 28.4 H INR 2.6 APTT Sodium Potassium Chloride Carbon Dioxide Anion Gap BUN Creatinine Estim Creat Clear Calc Estimated GFR Glucose POC Capillary Glucose 182 H 122 H Calcium Total Bilirubin AST ALT Alkaline Phosphatase Total Protein Albumin Urine Color Urine Appearance Urine pH Ur Specific [place] Urine Protein Urine Glucose (UA) Urine Ketones Ur Blood (Man) Urine Nitrate Urine Bilirubin Urine Urobilinogen Ur Leukocyte Esterase Add Ur Microanalysis Urine RBC Urine WBC Ur Squamous Epith Cells Urine Bacteria Urine Casts Nasal MRSA (PCR) Quality VTE Prophylaxis VTE prophylaxis: mechanical ordered
[2024-08-18 11:57] LABS: Glucose Point of Care 128 mg/dl (65-105)
[2024-08-18] MEDS: TRIMETHOBENZAMIDE HCL 200 MG/2 ML VIAL IM (12:13)
--- NOTE | 2024-08-18 14:02 | PM.CNNEP ---
Assessment and Plan Assessment and plan (1) End-stage renal disease (ESRD): Code(s): N18.6 - End stage renal disease Status: Acute Assessment and Plan: The patient has end-stage renal disease. He is getting peritoneal dialysis. Fluid is clear and flows are good. Chest x-ray shows no air under the diaphragm on the PD ( air could cause the left shoulder pain). Will continue dialysis. (2) Pneumonia: Code(s): J18.9 - Pneumonia, unspecified organism Status: Acute Assessment and Plan: The patient has atelectasis on CT scan. Will check an x-ray his white count is Normal. He is afebrile. (3) Hyperkalemia: Code(s): E87.5 - Hyperkalemia Status: Acute Assessment and Plan: Potassium is slightly high. Will give Lokelma. (4) Aortic stenosis: Code(s): I35.0 - Nonrheumatic aortic (valve) stenosis Status: Acute Assessment and Plan: The patient has aortic stenosis. He is following with Cardiology. (5) Type 1 diabetes mellitus: Qualifiers: Diabetes mellitus complication status: with ketoacidosis Diabetes mellitus complication detail: without coma Qualified Code(s): E10.10 - Type 1 diabetes mellitus with ketoacidosis without coma Code(s): E10.9 - Type 1 diabetes mellitus without complications Status: Acute Assessment and Plan: On Accu-Cheks and insulin per hospitalist (6) Hypertension: Code(s): I10 - Essential (primary) hypertension Status: Chronic Assessment and Plan: blood pressure looks pretty good (7) Hyperlipidemia: Qualifiers: Hyperlipidemia type: unspecified Qualified Code(s): E78.5 - Hyperlipidemia, unspecified Code(s): E78.5 - Hyperlipidemia, unspecified Status: Chronic Assessment and Plan: on atorvastatin (8) Secondary hyperparathyroidism of renal origin: Code(s): N25.81 - Secondary hyperparathyroidism of renal origin Status: Acute Assessment and Plan: will check a phosphorus level in the morning (9) Obstructive sleep apnea: Code(s): G47.33 - Obstructive sleep apnea (adult) (pediatric) Status: Chronic Assessment and Plan: he does not use a CPAP mask History of Present Illness Reason for Consult Consult date: 08/18/24 Chief Complaint Chief complaint: ESRD History of Present Illness Narrative: Juvenal is a very pleasant 54-year-old gentleman who has multiple medical problems including end-stage renal disease on dialysis 3 times a week, hypertension, diabetes, coronary disease status post bypass and also 5 stents, paroxysmal atrial fibrillation, anemia, renal osteodystrophy, gout, GERD, history of a seizure, sleep apnea but does not use a CPAP machine all the time, arthritis, hyperlipidemia. The patient says he has had back pain for months. It is on the left side at the subcostal margin but also radiates to the Left scapula. He has no rash he said it has not really gotten worse the it does come and go. He is told doctors about it but nodes been able tell him what is so he came into the emergency room. While he was being evaluated in the ER he gave some urine and the urine had blood. This was a new thing as well he has no history of kidney stones. He came to the Emergency Room evening before last he spent the night in the emergency room and so missed his peritoneal dialysis. he Was admitted yesterday and yesterday evening the nurses called me with the admission. I sent the dialysis orders over to give him a treatment last night. He did see Urology. They felt that he has a bladder infection and because his INR is so high, he had the bleeding ..they want to treat the bladder infection, correct the INR, and see what happens with the urine. Review of Systems Constitutional: Constitutional: Reports no additional constitutional complaints Eyes: Eyes: Reports no additional eye complaints ENT: Reports system reviewed and no additional complaints, except as documented Cardiovascular: Cardiovascular: Reports no additional cardiovascular complaints Respiratory: Respiratory: Reports no additional respiratory complaints Gastrointestinal: Gastrointestinal: Reports no additional gastrointestinal complaints Genitourinary: Genitourinary: Reports no additional male genitourinary complaints Musculoskeletal: Musculoskeletal: Reports no additional musculoskeletal complaints Integumentary/Breasts: Skin/Breast: Reports system reviewed and no additional complaints, except as docu Neurologic: Reports system reviewed and no additional complaints, except as documented Psychiatric: Psychiatric: Reports no additional psychiatric complaints Endocrine: Endocrine: Reports no additional endocrine complaints [facility] Past Medical History Medical History Hematuria Right hand dominant Insulin dependent diabetes mellitus Chronic anticoagulation Paroxysmal atrial fibrillation Renal osteodystrophy Seizure X1 with etiology unknown End-stage renal disease on peritoneal dialysis Essential hypertension Gout Deep venous thrombosis Chronic right popliteal DVT. Coronary artery disease History of several stents including complex procedure at [place] w/ stenting of a heavily calcified CX on OM using shockwave treatment. Gastroesophageal reflux disease Congestive heart failure Echocardiogram May 2017 EF of 50% with hypokinetic apical, inferior and basal inferior lateral segment, mild enlargement of left atrium. Anemia in chronic kidney disease Type 1 diabetes mellitus Onset around age 13. Diabetic retinopathy Diabetic peripheral neuropathy Obstructive sleep apnea With inconsistent CPAP use. Secondary hyperparathyroidism of renal origin Anxiety Arthritis Hyperlipidemia Surgical History Surgical History S/P triple vessel bypass Sep 2023; [facility] History of coronary angioplasty with insertion of stent Drug-eluting stents for high-grade OM 99% occlusion 05/2022. History of hernia repair Peritoneal dialysis catheter in place History of cataract extraction With lens implant History of open reduction and internal fixation (ORIF) procedure (1982) Left lower extremity fracture. And the right hip pinning when he was in the 8th grade History of arthroscopy of left knee History of anterior cruciate ligament surgery (2000) Left knee History of bilateral carpal tunnel release Right 05/03/2018. Left 06/02/2018. History of appendectomy (2006) History of cardiac catheterization 01/21/2021 catheterization at [facility], Dr. Hoover done: Little change from prior catheterization. Patent stents in the RCA and PDA. Previously jailed posterolateral is occluded and development of a 50% stenosis of a branch of om 1. Normal LV function. :August 2019 demonstrated patent stents with 40% stenosis of 1 vessel with no stents or angioplasty performed per patient report. :November 2018 at [facility] - stent x3. :March 2017 demonstrating mild diffuse coronary disease 80% lesion small sub branch of obtuse marginal 1 and 90% stenosis distal RCA into the origin of the PDA with PTCA and stent to the RPDA/distal RCA performed by Dr. Petit. Family History Family History Father , in his late 60s Acute myocardial infarction Premature coronary artery disease; <65yo CHF (congestive heart failure) Dementia Hypertension S/P triple vessel bypass 1980s Mother Lung cancer Hypertension Daughter Celiac disease Social History Social History Social History: Surrogate medical decision maker: Hodan Vargasdre (daughter) or Lorne Pilo (brother). Code status: Full code. Smoking status: Never smoker Second hand tobacco smoke exposure: No Alcohol intake: never Substance use: never Substance use type: does not use Do You Feel Safe in your Home?: Yes Lack of Transportation: No Lack of Food: Sometimes True Current Housing: I Have Housing Concerned About Future Housing: No Difficulty Paying Gas/Electric Bills: No Difficulty Paying for Meds: YES Currently Unemployed: No Education: High School Diploma/GED Difficulty w/ Childcare or Family Care: No Living arrangements: alone Additional living arrangements comments: He is single and has 3 children. 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 Spiritual care concerns: No Agree to blood products: Yes Meds Home Medications and Allergies Home Medications ?Medication ?Instructions ?Recorded ?Confirmed ?Type calcitriol 0.25 mcg capsule 0.25 mcg PO QAM 06/04/19 08/17/24 History ergocalciferol (vitamin D2) 1,250 50,000 unit PO WEEKLY 06/04/19 08/17/24 History mcg (50,000 unit) capsule (Vitamin D2) nitroglycerin 0.4 mg sublingual 0.4 mg sublingual Q5-15M PRN Chest 06/04/19 08/17/24 History tablet Pain ezetimibe 10 mg tablet (Zetia) 10 mg PO DAILY 09/09/19 08/17/24 History cetirizine 10 mg tablet (All Day 10 mg PO DAILY 12/26/19 08/17/24 History Allergy (cetirizine)) atorvastatin 80 mg tablet 80 mg PO DAILY 11/26/20 08/17/24 History albuterol sulfate 90 mcg/actuation 1 inh inhalation QID PRN shortness 01/12/23 08/17/24 Rx aerosol inhaler (ProAir HFA) of breath or wheezing #8.5 grams potassium chloride 20 mEq 20 meq PO DAILY PRN Cramps 05/20/23 08/17/24 History tablet,extended release febuxostat 40 mg tablet 40 mg PO QPM 07/25/23 08/17/24 History gemfibrozil 600 mg tablet 600 mg PO Q12H 07/25/23 08/17/24 History linaclotide 72 mcg capsule 72 mcg PO DAILY PRN Diarrhea 07/25/23 08/17/24 History (Linzess) icosapent ethyl 1 gram capsule 1 g PO Q12H 02/16/24 08/17/24 History (Vascepa) torsemide 100 mg tablet 100 mg PO DAILY 02/16/24 08/17/24 History warfarin 3 mg tablet 3 mg PO DAILY #30 tabs 03/01/24 08/17/24 Rx insulin NPH isoph U-100 human 100 10 unit (0.1 mL) subcut DAILY PRN 05/16/24 08/17/24 Rx unit/mL (3 mL) subcutaneous pen if insulin pump malfunction; (Humulin N NPH U-100 Insulin before dialysis #15 mL KwikPen) insulin lispro 100 unit/mL 100 unit continuous subcutaneous 05/16/24 08/17/24 Rx subcutaneous solution (Humalog infusion DAILY #100 mL U-100 Insulin) insulin pump cart,automated,BT #45 ea 05/16/24 08/17/24 Rx (Omnipod 5 G6 Pods (Gen 5) subcutaneous cartridge) levothyroxine 25 mcg tablet 25 mcg PO DAILY #90 tabs 05/16/24 08/17/24 Rx omeprazole 20 mg capsule,delayed 20 mg PO DAILY 06/06/24 08/17/24 History release amlodipine 10 mg tablet 10 mg PO HS 07/30/24 08/17/24 History calcium acetate(phosphat bind) 667 667 mg PO QID 07/30/24 08/17/24 History mg capsule erythromycin 5 mg/gram (0.5 %) eye 1 applic EACH EYE HS 07/30/24 08/17/24 History ointment glucagon 1 mg/0.2 mL subcutaneous See Rx Instructions .Route 07/30/24 08/17/24 History auto-injector (Gvoke HypoPen .COMPLEX PRN Hypoglycemia 2-Pack) warfarin 3 mg tablet 1.5 mg PO WEEKLY 07/30/24 08/17/24 History insulin aspart U-100 100 unit/mL 5 unit (0.05 mL) subcut TIDWMEAL 08/02/24 08/17/24 Rx (3 mL) subcutaneous pen (Novolog #15 mL FlexPen U-100 Insulin aspart) insulin glargine 100 unit/mL (3 10 unit (0.1 mL) subcut QPM #15 mL 08/02/24 08/17/24 Rx mL) subcutaneous pen (Lantus Solostar U-100 Insulin) pen needle, diabetic 32 gauge x #100 ea 08/05/24 08/17/24 Rx 5/32 (BD Lucrecia 2nd Gen Pen Needle) cyclobenzaprine 10 mg tablet 5 - 10 mg (0.5 - 1 x 10 mg) PO TID 08/11/24 08/17/24 Rx PRN muscle spasm #10 tabs promethazine 12.5 mg tablet 12.5 mg PO TID #10 tabs 08/11/24 08/17/24 Rx famotidine 40 mg tablet 40 mg PO HS 08/17/24 08/17/24 History lidocaine 5 % topical patch 1 patch transdermal Q24H 08/17/24 08/17/24 History metoprolol succinate 25 mg 25 mg PO DAILY 08/17/24 08/17/24 History tablet,extended release 24 hr Allergies Allergy/AdvReac Type Severity Reaction Status Date / Time allopurinol Allergy Severe Other Verified 08/17/24 08:24 iodine Allergy Severe Rash Verified 08/17/24 08:24 iohexol (From CONTRAST - CT, Allergy Severe Difficulty Verified 08/17/24 08:24 XRAY) Breathing ticagrelor Allergy Intermediate Rash Verified 08/17/24 08:24 Vital Signs Vital Signs - 24 hr 08/17/24 14:40 08/17/24 14:40 08/17/24 14:43 Temperature 97.6 F Pulse Rate 110 H 111 H Respiratory Rate 16 Blood Pressure 123/68 Pulse Oximetry 100 Oxygen Delivery Room Air 08/17/24 16:00 08/17/24 18:00 08/17/24 20:00 Temperature 97.7 F Pulse Rate 110 H 106 H 108 H Respiratory Rate 12 Blood Pressure 125/76 Pulse Oximetry 97 Oxygen Delivery 08/17/24 20:00 08/17/24 21:30 08/17/24 22:00 Temperature Pulse Rate 111 H 108 H Respiratory Rate Blood Pressure Pulse Oximetry Oxygen Delivery Room Air 08/17/24 23:45 08/18/24 00:00 08/18/24 00:00 Temperature 97.6 F Pulse Rate 74 112 H Respiratory Rate 20 Blood Pressure 129/82 Pulse Oximetry 99 Oxygen Delivery Room Air 08/18/24 02:00 08/18/24 04:00 08/18/24 04:00 Temperature 97.6 F Pulse Rate 112 H 114 H 113 H Respiratory Rate 14 Blood Pressure 124/84 Pulse Oximetry 99 Oxygen Delivery 08/18/24 04:00 08/18/24 06:00 08/18/24 07:50 Temperature 97.7 F Pulse Rate 114 H 115 H Respiratory Rate 16 Blood Pressure 125/79 Pulse Oximetry Oxygen Delivery Room Air 08/18/24 07:57 08/18/24 08:00 08/18/24 08:43 Temperature 97.7 F Pulse Rate 115 H 115 H 115 H Respiratory Rate 16 Blood Pressure 125/79 Pulse Oximetry 97 Oxygen Delivery 08/18/24 10:00 08/18/24 12:00 08/18/24 12:00 Temperature 97.8 F Pulse Rate 114 H 115 H 113 H Respiratory Rate 12 Blood Pressure 120/81 Pulse Oximetry 97 Oxygen Delivery Exam Narrative: Exam Narrative: Well developed well-nourished male in no acute distress Skin is warm and dry without rash Head normocephalic atraumatic Eyes normal sclerae and conjunctivae Mouth normal lips teeth and gums Neck no nodes no thyromegaly no carotid bruits Axillae no nodes Back no CVA tenderness and no chest tenderness in the back. Lungs symmetric and clear to auscultation and percussion Heart regular rate and rhythm without rub or gallop Abdomen bowel sounds positive soft nontender, no HSM, masses, or bruits. Extremities no cyanosis, clubbing, or edema Pulses 2+ equal in radial arteries Psychological not anxious or depressed Neuro alert and oriented x3 motor 5/5 cranial nerves 2-12 intact reflexes 2+ and equal in the biceps and patellar tendons cerebellar normal rapid alternating movements Results Lab Results 08/17/24 12:23 08/17/24 12:23 Lab results: Most recent lab results Calcium 8.2 mg/dL (8.4-10.2) L 08/17/24 12:23
[2024-08-18] MEDS: SODIUM ZIRCONIUM CYCLOSILICATE 10 GM POWD.PACK PO (15:25)
[2024-08-18] MEDS: FEBUXOSTAT 40 MG TABLET PO (17:20)
[2024-08-18 18:08] LABS: Glucose Point of Care 175 mg/dl (65-105)
[2024-08-18 20:40] LABS: Glucose Point of Care 136 mg/dl (65-105)
[2024-08-18] MEDS: FAMOTIDINE 20 MG TABLET 40 MG PO (21:30)
[2024-08-18] MEDS: amLODIPine BESYLATE 10 MG TABLET PO (21:31)
[2024-08-18] MEDS: HYDROcodone/acetaminophen (*CRX) 10-325 MG TABLET 1 TAB PO (21:31)
[2024-08-19] VITALS (12 sets, daily range): BP systolic 126–144; BP diastolic 75–90; PULSE 98–116; RESP 20; TEMP 36.5–36.8; O2SAT 95–99
[2024-08-19 04:54] LABS: Basophils Percent Auto 0.9 % (0.2-1.2); Eosinophils Absolute Auto 0.3 K/mm3 (0-0.3); Eosinophils Percent Auto 6.7 % (0-4.4); Hematocrit 39.2 % (42.0-52.0); Hemoglobin 12.5 g/dL (14.0-18.0); Immature Granulocyte Absolute 0.01 K/mm3 (0.00-0.031); Immature Granulocyte Percent A 0.2 % (0-0.5); Lymphocytes Absolute Auto 1.29 K/mm3 (0.9-3.2); Lymphocytes Percent Auto 28.9 % (18.3-44.2); Mean Corpuscular HGB Conc 31.9 g/dl (32-36); Mean Corpuscular Hemoglobin 30.1 pg (26-34); Mean Corpuscular Volume 94.5 fl (80-100); Monocytes Absolute Auto 0.7 K/mm3 (0.1-0.6); Monocytes Percent Auto 16.6 % (2.6-8.5); Neutrophils Absolute Auto 2.1 K/mm3 (1.3-6.7); Neutrophils Percent Auto 46.7 % (45.5-73.1); Platelet Count Result 228 k/mm3 (150-375); Red Blood Count 4.15 M/mm3 (4.6-6.20); Red Cell Distribution Width 14.5 % (11.5-14.5); White Blood Count 4.5 K/mm3 (4.5-10.0)
[2024-08-19 05:17] LABS: Alanine Aminotransferase 32 U/L (6-50); Albumin Level 3.8 g/dL (3.5-5.1); Alkaline Phosphatase 87 U/L (38-126); Anion Gap 9 mmol/L (4-12); Aspartate Amino Transferase 40 U/L (17-59); Bilirubin,Total 0.5 mg/dL (0.2-1.3); Blood Urea Nitrogen 75 mg/dL (9-20); Calcium 9.2 mg/dL (8.4-10.2); Carbon Dioxide 28 mmol/L (22-30); Chloride 95 mmol/L (98-107); Estimated CRCL calculation 10 ml/min; Estimated Glomerular Filt Rate 5; Glucose 122 mg/dL (65-110); INR 2.3; Magnesium 2.2 mg/dL (1.6-2.3); Potassium 4.3 mmol/L (3.4-5.0); Prothrombin Time 25.2 Seconds (11.1-14.7); Sodium 132 mmol/L (137-145)
[2024-08-19] MEDS: HOME MEDICATION 1 EACH XX (06:00)
[2024-08-19] MEDS: LEVOTHYROXINE SODIUM 25 MCG TABLET PO (06:32)
[2024-08-19] MEDS: HYDROcodone/acetaminophen (*CRX) 10-325 MG TABLET 1 TAB PO (06:36)
[2024-08-19 08:41] LABS: Glucose Point of Care 102 mg/dl (65-105)
[2024-08-19] MEDS: TORSEMIDE 20 MG TABLET 100 MG PO (09:06)
[2024-08-19] MEDS: ATORVASTATIN 40 MG TABLET 80 MG PO (09:07)
[2024-08-19] MEDS: CALCIUM ACETATE 667 MG TABLET PO ×2 (09:07→12:20)
[2024-08-19] MEDS: OMEGA 3 POLYUNSAT FATTY ACIDS 1 GM CAP PO (09:07)
[2024-08-19] MEDS: METOPROLOL SUCCINATE EXT REL 25 MG TABCR PO (09:07)
[2024-08-19] MEDS: calcitrioL 0.25 MCG CAPSULE PO (09:07)
[2024-08-19] MEDS: EZETIMIBE 10 MG TABLET PO (09:07)
--- NOTE | 2024-08-19 09:11 | P.PNNP_ITS ---
Progress Note: A&P Assessment and Plan (1) End stage renal disease: Code(s): N18.6 - End stage renal disease Status: Chronic Assessment and Plan: * continue nightly peritoneal dialysis treatments * follow electrolytes, volume status and clearance * primary pot reliner = Dr Sharath Reyes * outpatient dialysis unit = [facility] (2) Hematuria: Code(s): R31.9 - Hematuria, unspecified Status: Acute Assessment and Plan: * due to supratherapeutic INR (?) * concern for possible UTI - however, urine culture negative * off antibiotics * Urology recommendations noted * continue supportive therapy (3) Hypertension: Code(s): I10 - Essential (primary) hypertension Status: Chronic Assessment and Plan: * reasonable control at this time * resume home medications as needed * follow trend of hemodynamics (4) Anemia: Code(s): D64.9 - Anemia, unspecified Status: Chronic Assessment and Plan: * due to ESRD * H/H at goal * CORRINE if Hgb < 10 (5) Obstructive sleep apnea: Code(s): G47.33 - Obstructive sleep apnea (adult) (pediatric) Status: Chronic Assessment and Plan: * continue CPAP use (6) Type 1 diabetes mellitus with hyperglycemia: Code(s): E10.65 - Type 1 diabetes mellitus with hyperglycemia Status: Acute Assessment and Plan: * on home insulin pump * follow accu-cheks Not opposed to discharge from renal perspective if otherwise medically stable. Will continue to follow. Subjective Date/time seen: 08/19/24 09:11 Interval history: Follow-up for end stage renal disease on peritoneal dialysis. Chart reviewed -- assuming care from Dr. Rodriguez; tolerated peritoneal dialysis treatment overnight without any issues or problems (PD treatment supervised overnight and seen at 0:00AM); no apparent distress voiced when seen; no events overnight or earlier this morning; stil with some on/off mid back pain but this is a chronic issue. Exam 2 Narrative: General: WD/WN male in NAD Heart: normal S1 and S2; no rub Lungs: clear to auscultation Abdomen: soft, nontender, nondistended, positive bowel sounds Extremities: no cyanosis or clubbing; trace - 1+ edema (chronic) Skin: warm and dry Objective Data Vital Signs Vital Signs: Vital Signs Temp Pulse Resp BP Pulse Ox O2 Del Method 08/19/24 09:07 115 H 08/19/24 08:00 115 H 08/19/24 08:00 115 H 20 99 Room Air 08/19/24 07:39 98.3 F 115 H 20 141/88 H 99 08/19/24 06:00 115 H 08/19/24 04:36 97.7 F 114 H 20 131/82 99 08/19/24 04:10 Room Air 08/19/24 04:00 112 H 08/19/24 02:00 115 H 08/19/24 00:15 97.8 F 114 H 20 137/90 99 08/19/24 00:10 Room Air 08/19/24 00:00 116 H 08/18/24 22:00 114 H 08/18/24 21:20 Room Air 08/18/24 20:30 98.0 F 113 H 20 116/77 96 08/18/24 20:00 114 H 08/18/24 18:00 115 H 08/18/24 16:00 98.1 F 112 H 20 118/72 100 08/18/24 16:00 113 H 08/18/24 14:00 113 H 08/18/24 12:00 113 H 08/18/24 12:00 97.8 F 115 H 12 120/81 97 Intake/Output Intake/Output: Intake & Output 08/16/24 08/17/24 08/18/24 08/19/24 23:59 23:59 23:59 23:59 Intake Total 2340 1230 1740 Output Total 300 960 150 Balance 2040 270 1590 Meds/Results Medications: Active Medications Generic Name Dose Route Start Last Admin Trade Name Freq PRN Reason Stop Dose Admin Hydrocodone Bitart/Acetaminophen 1 tab 08/17/24 22:01 08/19/24 06:36 Hydrocodone/Acetaminophen (*Crx) 10-325 Mg Tablet PO 1 tab Q4H PRN Administration Pain Rated 7-10 Hydrocodone Bitart/Acetaminophen 1 tab 08/17/24 22:01 Hydrocodone/Acetaminophen (*Crx) 5-325 Mg Tablet PO Q4H PRN Pain Rated 4-6 Albuterol 1 puff 08/17/24 18:58 Albuterol Sulfate (*Sp) Aerosol 1 Puff INHALATION QID PRN shortness of breath or wheezing Amlodipine Besylate 10 mg 08/17/24 21:00 08/18/24 21:31 Amlodipine Besylate 10 Mg Tablet PO 10 mg HS ASHLEY Administration Atorvastatin Calcium 80 mg 08/18/24 09:00 08/19/24 09:07 Atorvastatin 40 Mg Tablet PO 80 mg DAILY ASHLEY Administration Calcitriol 0.25 mcg 08/18/24 09:00 08/19/24 09:07 Calcitriol 0.25 Mcg Capsule PO 0.25 mcg QAM ASHLEY Administration Calcium Acetate 667 mg 08/17/24 21:00 08/19/24 09:07 Calcium Acetate 667 Mg Tablet PO 667 mg QID ASHLEY Administration Dextrose 12.5 gm 08/17/24 19:16 Dextrose 50% 25 Gm/50 Ml Syringe IV PUSH PRN PRN Hypoglycemia Protocol Ezetimibe 10 mg 08/18/24 09:00 08/19/24 09:07 Ezetimibe 10 Mg Tablet PO 10 mg DAILY ASHLEY Administration Famotidine 40 mg 08/17/24 21:00 08/18/24 21:30 Famotidine 20 Mg Tablet PO 40 mg HS ASHLEY Administration Febuxostat 40 mg 08/18/24 18:00 08/18/24 17:20 Febuxostat 40 Mg Tablet PO 40 mg QPM ASHLEY Administration Fish Oil 1 gm 08/17/24 21:00 08/19/24 09:07 [place] 3 Polyunsat Fatty Acids 1 Gm Cap PO 1 gm Q12H ASHLEY Administration Glucagon 1 mg 08/17/24 19:16 Glucagon For Inj 1 Mg Vial IM PRN PRN Hypoglycemia Protocol Glucose 15 gm 08/17/24 19:16 Glucose Oral Gel 15 Gm Of Glucse In 37.5 Gm Tube PO PRN PRN Hypoglycemia Protocol Home Med 1 each 08/18/24 06:00 08/19/24 06:00 Home Medication XX 09/17/24 05:59 1 each DAILY@0600 ASHLEY Administration Dextrose 1,000 mls @ 100 mls/hr 08/17/24 19:16 Dextrose 5% 1,000 Ml IVPB PRN PRN Hypoglycemia Protocol Levothyroxine Sodium 25 mcg 08/18/24 06:30 08/19/24 06:32 Levothyroxine Sodium 25 Mcg Tablet PO 25 mcg DAILY@0630 ASHLEY Administration Metoprolol Succinate 25 mg 08/18/24 09:00 08/19/24 09:07 Metoprolol Succinate Ext Rel 25 Mg Tabcr PO 25 mg DAILY ASHLEY Administration Nitroglycerin 0.4 mg 08/17/24 19:04 Nitroglycerin Sl 0.4 Mg Tablet SUBLINGUAL Q5M PRN Chest Pain Torsemide 100 mg 08/18/24 09:00 08/19/24 09:06 Torsemide 20 Mg Tablet PO 100 mg DAILY ASHLEY Administration Trimethobenzamide HCl 200 mg 08/17/24 22:02 08/18/24 12:13 Trimethobenzamide Hcl 200 Mg/2 Ml Vial IM 200 mg Q6H PRN Administration Nausea And Vomiting Warfarin Sodium 3 mg 08/17/24 19:40 08/17/24 21:49 Warfarin (*Pbkc) 3 Mg Tablet PO 3 mg [id number]@1700 ASHLEY Administration Radiology Results: ITS Impressions Chest/Abdomen/Pelvis CT 08/17/24 09:08 IMPRESSION: 1. Unchanged small left pleural effusion. 2. Peritoneal dialysis catheter with unchanged small amount of ascites in the abdomen and pelvis and a small amount of ascites tracking along the dialysis catheter in the left lower quadrant anterior abdominal wall. 3. Persistent severe periumbilical edema with overlying skin thickening. Correlate clinically for cellulitis. 4. Cholelithiasis. Chest X-Ray 08/18/24 14:53 IMPRESSION: Large left-sided pleural effusion with adjacent compressive atelectasis. No focal infiltrate. Labs Labs: Laboratory Tests 08/19/24 04:39 08/19/24 04:39 PT 25.2 H INR 2.3 Calcium 9.2 Phosphorus 7.0 H Magnesium 2.2 Total Bilirubin 0.5 AST 40 ALT 32 Alkaline Phosphatase 87 Total Protein 7.0 Albumin 3.8 Microbiology 08/17/24 11:20 Blood Blood Culture - Preliminary 08/17/24 11:30 Blood Blood Culture - Preliminary 08/16/24 20:29 Unspecified Urine Culture - Final
--- NOTE | 2024-08-19 11:54 | WPDUROPN2 ---
Subjective Subjective Date/Time Seen: 08/19/24 11:54 Objective Data Vital Signs Vital Signs: Vital Signs - 24 hr 08/18/24 12:00 08/18/24 12:00 08/18/24 14:00 Temperature 97.8 F Pulse Rate 115 H 113 H 113 H Respiratory Rate 12 Blood Pressure 120/81 Pulse Oximetry 97 Oxygen Delivery 08/18/24 16:00 08/18/24 16:00 08/18/24 18:00 Temperature 98.1 F Pulse Rate 113 H 112 H 115 H Respiratory Rate 20 Blood Pressure 118/72 Pulse Oximetry 100 Oxygen Delivery 08/18/24 20:00 08/18/24 20:30 08/18/24 21:20 Temperature 98.0 F Pulse Rate 114 H 113 H Respiratory Rate 20 Blood Pressure 116/77 Pulse Oximetry 96 Oxygen Delivery Room Air 08/18/24 22:00 08/19/24 00:00 08/19/24 00:10 Temperature Pulse Rate 114 H 116 H Respiratory Rate Blood Pressure Pulse Oximetry Oxygen Delivery Room Air 08/19/24 00:15 08/19/24 02:00 08/19/24 04:00 Temperature 97.8 F Pulse Rate 114 H 115 H 112 H Respiratory Rate 20 Blood Pressure 137/90 Pulse Oximetry 99 Oxygen Delivery 08/19/24 04:10 08/19/24 04:36 08/19/24 06:00 Temperature 97.7 F Pulse Rate 114 H 115 H Respiratory Rate 20 Blood Pressure 131/82 Pulse Oximetry 99 Oxygen Delivery Room Air 08/19/24 07:39 08/19/24 08:00 08/19/24 08:00 Temperature 98.3 F Pulse Rate 115 H 115 H 115 H Respiratory Rate 20 20 Blood Pressure 141/88 H Pulse Oximetry 99 99 Oxygen Delivery Room Air 08/19/24 09:07 08/19/24 10:00 08/19/24 11:25 Temperature 97.9 F Pulse Rate 115 H 116 H 116 H Respiratory Rate 20 Blood Pressure 126/75 Pulse Oximetry 95 Oxygen Delivery Intake/Output Intake/Output: Intake & Output 08/16/24 08/17/24 08/18/24 08/19/24 23:59 23:59 23:59 23:59 Intake Total 2340 1230 1740 Output Total 300 960 150 Balance 2040 270 1590 Meds/Results Medications: Active Medications Generic Name Dose Route Start Last Admin Trade Name Freq PRN Reason Stop Dose Admin Hydrocodone Bitart/Acetaminophen 1 tab 08/17/24 22:01 08/19/24 06:36 Hydrocodone/Acetaminophen (*Crx) 10-325 Mg Tablet PO 1 tab Q4H PRN Administration Pain Rated 7-10 Hydrocodone Bitart/Acetaminophen 1 tab 08/17/24 22:01 Hydrocodone/Acetaminophen (*Crx) 5-325 Mg Tablet PO Q4H PRN Pain Rated 4-6 Albuterol 1 puff 08/17/24 18:58 Albuterol Sulfate (*Sp) Aerosol 1 Puff INHALATION QID PRN shortness of breath or wheezing Amlodipine Besylate 10 mg 08/17/24 21:00 08/18/24 21:31 Amlodipine Besylate 10 Mg Tablet PO 10 mg HS ASHLEY Administration Atorvastatin Calcium 80 mg 08/18/24 09:00 08/19/24 09:07 Atorvastatin 40 Mg Tablet PO 80 mg DAILY ASHLEY Administration Calcitriol 0.25 mcg 08/18/24 09:00 08/19/24 09:07 Calcitriol 0.25 Mcg Capsule PO 0.25 mcg QAM ASHLEY Administration Calcium Acetate 667 mg 08/17/24 21:00 08/19/24 09:07 Calcium Acetate 667 Mg Tablet PO 667 mg QID ASHLEY Administration Dextrose 12.5 gm 08/17/24 19:16 Dextrose 50% 25 Gm/50 Ml Syringe IV PUSH PRN PRN Hypoglycemia Protocol Ezetimibe 10 mg 08/18/24 09:00 08/19/24 09:07 Ezetimibe 10 Mg Tablet PO 10 mg DAILY ASHLEY Administration Famotidine 40 mg 08/17/24 21:00 08/18/24 21:30 Famotidine 20 Mg Tablet PO 40 mg HS ASHLEY Administration Febuxostat 40 mg 08/18/24 18:00 08/18/24 17:20 Febuxostat 40 Mg Tablet PO 40 mg QPM ASHLEY Administration Fish Oil 1 gm 08/17/24 21:00 08/19/24 09:07 [place] 3 Polyunsat Fatty Acids 1 Gm Cap PO 1 gm Q12H ASHLEY Administration Glucagon 1 mg 08/17/24 19:16 Glucagon For Inj 1 Mg Vial IM PRN PRN Hypoglycemia Protocol Glucose 15 gm 08/17/24 19:16 Glucose Oral Gel 15 Gm Of Glucse In 37.5 Gm Tube PO PRN PRN Hypoglycemia Protocol Home Med 1 each 08/18/24 06:00 08/19/24 06:00 Home Medication XX 09/17/24 05:59 1 each DAILY@0600 ASHLEY Administration Dextrose 1,000 mls @ 100 mls/hr 08/17/24 19:16 Dextrose 5% 1,000 Ml IVPB PRN PRN Hypoglycemia Protocol Levothyroxine Sodium 25 mcg 08/18/24 06:30 08/19/24 06:32 Levothyroxine Sodium 25 Mcg Tablet PO 25 mcg DAILY@0630 ASHLEY Administration Metoprolol Succinate 25 mg 08/18/24 09:00 08/19/24 09:07 Metoprolol Succinate Ext Rel 25 Mg Tabcr PO 25 mg DAILY ASHLEY Administration Nitroglycerin 0.4 mg 08/17/24 19:04 Nitroglycerin Sl 0.4 Mg Tablet SUBLINGUAL Q5M PRN Chest Pain Torsemide 100 mg 08/18/24 09:00 08/19/24 09:06 Torsemide 20 Mg Tablet PO 100 mg DAILY ASHLEY Administration Trimethobenzamide HCl 200 mg 08/17/24 22:02 08/18/24 12:13 Trimethobenzamide Hcl 200 Mg/2 Ml Vial IM 200 mg Q6H PRN Administration Nausea And Vomiting Warfarin Sodium 3 mg 08/17/24 19:40 08/17/24 21:49 Warfarin (*Pbkc) 3 Mg Tablet PO 3 mg SuMoTuWeThSa@1700 ASHLEY Administration Radiology Results: ITS Impressions Chest/Abdomen/Pelvis CT 08/17/24 09:08 IMPRESSION: 1. Unchanged small left pleural effusion. 2. Peritoneal dialysis catheter with unchanged small amount of ascites in the abdomen and pelvis and a small amount of ascites tracking along the dialysis catheter in the left lower quadrant anterior abdominal wall. 3. Persistent severe periumbilical edema with overlying skin thickening. Correlate clinically for cellulitis. 4. Cholelithiasis. Chest X-Ray 08/18/24 14:53 IMPRESSION: Large left-sided pleural effusion with adjacent compressive atelectasis. No focal infiltrate. Labs Labs: Laboratory Results - last 24 hr 08/18/24 08/18/24 08/18/24 11:26 15:51 19:58 WBC RBC Hgb Hct MCV MCH MCHC RDW Plt Count MPV Immature Gran % (Auto) Neut % (Auto) Lymph % (Auto) [place] % (Auto) Eos % (Auto) Baso % (Auto) Lymph # (Auto) [place] # (Auto) Eos # (Auto) Baso # (Auto) Abs Immat Gran (auto) Absolute Neuts (auto) Absolute Nucleated RBC Nucleated RBC % PT INR Sodium Potassium Chloride Carbon Dioxide Anion Gap BUN Creatinine Estim Creat Clear Calc Estimated GFR Glucose POC Capillary Glucose 128 H 175 H 136 H Calcium Phosphorus Magnesium Total Bilirubin AST ALT Alkaline Phosphatase Total Protein Albumin 08/19/24 08/19/24 04:39 07:37 WBC 4.5 RBC 4.15 L Hgb 12.5 L Hct 39.2 L MCV 94.5 MCH 30.1 MCHC 31.9 L RDW 14.5 Plt Count 228 MPV 10.0 Immature Gran % (Auto) 0.2 Neut % (Auto) 46.7 Lymph % (Auto) 28.9 [place] % (Auto) 16.6 H Eos % (Auto) 6.7 H Baso % (Auto) 0.9 Lymph # (Auto) 1.29 [place] # (Auto) 0.7 H Eos # (Auto) 0.3 Baso # (Auto) 0.0 Abs Immat Gran (auto) 0.01 Absolute Neuts (auto) 2.1 Absolute Nucleated RBC 0.000 Nucleated RBC % 0.0 PT 25.2 H INR 2.3 Sodium 132 L Potassium 4.3 Chloride 95 L Carbon Dioxide 28 Anion Gap 9 BUN 75 H Creatinine 10.10 H Estim Creat Clear Calc 10 Estimated GFR 5 L Glucose 122 H POC Capillary Glucose 102 Calcium 9.2 Phosphorus 7.0 H Magnesium 2.2 Total Bilirubin 0.5 AST 40 ALT 32 Alkaline Phosphatase 87 Total Protein 7.0 Albumin 3.8
[2024-08-19] MEDS: TRIMETHOBENZAMIDE HCL 200 MG/2 ML VIAL IM (12:20)
--- NOTE | 2024-08-19 12:23 | PM.DS ---
DS: Admitting Diagnosis Discharge Date 08/19/24 Admitting Diagnosis Hematuria, end-stage renal disease on peritoneal dialysis, hyperkalemia, congestive heart failure, type 1 diabetes mellitus, acute coronary syndrome, paroxysmal AFib DS: Discharge Diagnosis Discharge Diagnosis (1) Hematuria: Code(s): R31.9 - Hematuria, unspecified Status: Acute Assessment and Plan: Could be due to warfarin versus other Patient on warfarin CABG x3 September 2023 Urology consulted: Hematuria likely secondary to hyper-anticoagulation with a possible lower urinary tract infection. Continue ceftriaxone pending culture results He will need to follow-up as an outpatient to see if hematuria resolves. If not he may require office cystoscopy UA collected 08/19/2024: Date of discharge -as witnessed by this provider and RN at the bedside patient's gross hematuria has resolved. He has been consulted on by Urology, Dr. Jovel, and he would like to see patient as outpatient in a couple of weeks to ensure this has resolved. His suspicion was acute infection versus supratherapeutic INR. As his INR has normalized patient's hematuria has resolved. (2) ESRD on peritoneal dialysis: Code(s): N18.6 - End stage renal disease; Z99.2 - Dependence on renal dialysis Status: Acute Assessment and Plan: Nephrology consulted Nightly PD Renal diet Continue phosphate binders and calcitriol 08/19/2024: Date of discharge -patient has been evaluated by Nephrology with recommendations made to continue his current regimen and follow up with Eric. They did not have any additional recommendations. (3) Hyperkalemia: Code(s): E87.5 - Hyperkalemia Status: Resolved Assessment and Plan: Secondary to missing peritoneal dialysis last night Manage by PD Continue to monitor Hold home p.o. potassium replacement- monitor labs 08/19/2024: Resolved with potassium of 4.3. Patient will have outpatient labs in 2 days. (4) Congestive heart failure: Qualifiers: Heart failure chronicity: acute on chronic Heart failure type: unspecified Qualified Code(s): I50.9 - Heart failure, unspecified Code(s): I50.9 - Heart failure, unspecified Status: Acute Assessment and Plan: Appears to be euvolemic, was given 1 L bolus in ED Managed by PD Monitor for fluid overload Continue home torsemide 08/19/2024: Patient continues to be euvolemic in appearance. He will be discharged home with the same medication regimens. (5) Type 1 diabetes mellitus with hyperglycemia: Code(s): E10.65 - Type 1 diabetes mellitus with hyperglycemia Status: Acute Assessment and Plan: Okay for patient to wear home monitor and insulin pump Monitor blood sugars a.c. and HS Nurse monitor blood sugars/AccuCheck-maintain records per protocol hypoglycemic protocol 08/19/2024: Date of discharge -glucose is stable. Continue all home medications and continuous glucose monitoring as well as insulin pump. (6) ACS (acute coronary syndrome): Code(s): I24.9 - Acute ischemic heart disease, unspecified Status: Chronic Assessment and Plan: History of CABG x3 in September 2023 Continue Vascepa, metoprolol, nitro, zetia Holding home warfarin till evaluated by Urology INR 3.0 on admission 08/19/24: Patient has remained stable on telemetry with no additional cardiac abnormalities. He is stable for discharge at this time. (7) Paroxysmal atrial fibrillation: Code(s): I48.0 - Paroxysmal atrial fibrillation Status: Acute Assessment and Plan: Continue home metoprolol Holding home warfarin until evaluated by Urology 08/19/24: Patient has remained in normal sinus rhythm. He is stable for discharge to continue home metoprolol for rate and Coumadin for anticoagulation with labs to be checked in 2 days. (8) Chronic back pain: Code(s): M54.9 - Dorsalgia, unspecified; G89.29 - Other chronic pain Status: Chronic Assessment and Plan: Patient with complaints of back pain greater than 3 months. He has discussed this with his primary care provider has referred him to pain management but he has yet to make the appointment. Patient states when he has the back pain it makes his chest pain worse. Patient is encouraged to obtain follow-up appointment as previously advised as this is chronic in nature. Plan No pneumonia seen on CT antibiotic stopped. Both blood cultures and urine cultures were negative. DS: Summary Hospital Course Reason for hospitalization: Hyperkalemia, chest pain, hematuria Hospital Course: This 54-year-old male patient with past medical history significant of end-stage renal disease on peritoneal dialysis, type 1 diabetes mellitus, heart failure, hypertension, coronary artery disease status post CABG and chronic back pain with which he was referred to pain management for comes to the emergency room and was subsequently admitted on August 17, 2024 with complaints of gross hematuria and left-sided chest pain. Patient is chronically anticoagulated with Coumadin and at the time of admission was noted that his INR was 3.0. In addition he had missed a session of peritoneal dialysis as he stated he ?waited in the emergency room all night and missed it. Patient reports that his chronic back pain is a precursor to his chest pain and states that when he has a flare-up of his back pain his chest also hurts. He denies any acute injury. States his workup on admission showed flat troponins and lower than his original baseline. He was given an additional dose of Rocephin and doxycycline for possible UTI given the gross hematuria, however his culture was negative so no antibiotics are being continued. Blood cultures were negative x2 as well. While he was here he was consulted on by both Urology as well as Nephrology. Nephrology assisted with the peritoneal dialysis orders. They have deemed him stable for discharge at this time to continue with his current dialysis schedule through [facility] D[facility] covered by Dr. Reyes, and Dr. Jovel who consulted for Urology will like to follow with the patient in a couple of weeks. It was witnessed by this provider as well as the RN at the bedside today. The patient does not have any gross hematuria remaining. Patient is concerned that we have not found a ?reason for his back pain. Patient was reminded that he has been referred to Pain Management as this is a chronic pain and that he denied any new exacerbation, injury or traumatic event, but has yet to make that appointment with pain management. Therefore he is advised to make the appointment follow-up with pain management. He will be restarted on his Coumadin and will have labs checked of CBC, CMP and INR in 2 days. Patient is agreeable to this plan of care, all questions answered to his satisfaction prior to discharge in stable condition. Status at Discharge Cognitive/behavioral status at discharge: At baseline Functional status at discharge: independent ambulation Time Spent with Patient Time attestation: Total time spent providing and/or coordinating discharge services: Time spent: Greater than 30 minutes Specific discharge activities: Follow up, outpatient orders for testing, making appointment with pain management Exam Narrative: General: well appearing, appears stated age. Obese HEENT: normocephalic, atraumatic. Mucous membranes moist. EOMI, PERRLA, bilateral sclera anicteric, no conjunctival injection. Neck supple without JVD, lymphadenopathy, or bruit. Respiratory: CTAB Cardiovascular: Regular rate and rhythm, normal S1-S2. No murmurs, rubs, or clicks. PMI is nondisplaced, capillary refill less than 3 second. Abdomen: Soft, round, no pulsatile masses, nondistended and nontender. No rebound, no guarding. No CVA tenderness, no hepatosplenomegaly. Bowel sounds present to all four quadrants. No high pitch or tinkling sounds, resonant to percussion. PD Cath Extremities: No cyanosis, clubbing, or edema present. Pulses are palpable 2/2. Active ROM to all four extremities. Neuro: Alert and orientated x 4. PERRLA. Cranial nerves 2-12 intact without focal deficit. Skin: Warm, dry, and intact, without rash, erythema, or lesion. Psych: pleasant, cooperative, normal speech, normal affect, no hallucinations, no dysarthia DS: Data Data Completed and Pending Completed studies during hospitalization: ITS Impressions Chest X-Ray 08/16/24 19:10 IMPRESSION: Left basal atelectasis versus pneumonia with minimal effusion. Chest/Abdomen/Pelvis CT 08/17/24 09:08 IMPRESSION: 1. Unchanged small left pleural effusion. 2. Peritoneal dialysis catheter with unchanged small amount of ascites in the abdomen and pelvis and a small amount of ascites tracking along the dialysis catheter in the left lower quadrant anterior abdominal wall. 3. Persistent severe periumbilical edema with overlying skin thickening. Correlate clinically for cellulitis. 4. Cholelithiasis. Chest X-Ray 08/18/24 14:53 IMPRESSION: Large left-sided pleural effusion with adjacent compressive atelectasis. No focal infiltrate. Labs on day of discharge: Labs from last 24 hours 08/19/24 08/19/24 08/18/24 07:37 04:39 19:58 WBC 4.5 RBC 4.15 L Hgb 12.5 L Hct 39.2 L MCV 94.5 MCH 30.1 MCHC 31.9 L RDW 14.5 Plt Count 228 MPV 10.0 Immature Gran % (Auto) 0.2 Neut % (Auto) 46.7 Lymph % (Auto) 28.9 [place] % (Auto) 16.6 H Eos % (Auto) 6.7 H Baso % (Auto) 0.9 Lymph # (Auto) 1.29 [place] # (Auto) 0.7 H Eos # (Auto) 0.3 Baso # (Auto) 0.0 Abs Immat Gran (auto) 0.01 Absolute Neuts (auto) 2.1 Absolute Nucleated RBC 0.000 Nucleated RBC % 0.0 PT 25.2 H INR 2.3 Sodium 132 L Potassium 4.3 Chloride 95 L Carbon Dioxide 28 Anion Gap 9 BUN 75 H Creatinine 10.10 H Estim Creat Clear Calc 10 Estimated GFR 5 L Glucose 122 H POC Capillary Glucose 102 136 H Calcium 9.2 Phosphorus 7.0 H Magnesium 2.2 Total Bilirubin 0.5 AST 40 ALT 32 Alkaline Phosphatase 87 Total Protein 7.0 Albumin 3.8 08/18/24 15:51 WBC RBC Hgb Hct MCV MCH MCHC RDW Plt Count MPV Immature Gran % (Auto) Neut % (Auto) Lymph % (Auto) [place] % (Auto) Eos % (Auto) Baso % (Auto) Lymph # (Auto) [place] # (Auto) Eos # (Auto) Baso # (Auto) Abs Immat Gran (auto) Absolute Neuts (auto) Absolute Nucleated RBC Nucleated RBC % PT INR Sodium Potassium Chloride Carbon Dioxide Anion Gap BUN Creatinine Estim Creat Clear Calc Estimated GFR Glucose POC Capillary Glucose 175 H Calcium Phosphorus Magnesium Total Bilirubin AST ALT Alkaline Phosphatase Total Protein Albumin Preliminary micro results at discharge 08/17/24 11:20 Blood Culture - Preliminary Blood 08/17/24 11:30 Blood Culture - Preliminary Blood Discharge Plan Discharge Attending physician on discharge: Stephie Dykes Consulting providers: Jennifer Mustafa; Sourav Rodriguez; Arjun Jovel Discharging Clinician: Stephie Dykes Anticipated Discharge Date/Time: 08/19/24 12:37 Patient Disposition: Home, Self-Care Activity: as tolerated Diet: heart healthy Discharge Instructions: Thank you for allowing us to care for you. Your hematuria has resolved. We suspect this occurred due to the elevation in your INR. We held your Coumadin for a couple of days and we are restarting it now. You will need to have your INR checked in 2 days. This order has been placed for you. In addition you will follow-up with Urology within 2 weeks for re-evaluation to ensure there are no other signs of gross hematuria. In addition you underwent your peritoneal dialysis. 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 There will be no changes to medications with exception of stopping the extra 1.5 mg of Coumadin you take on Monday's. You had 2 negative troponins there by clearing you from any acute coronary syndrome at this time. With regards to your back pain that he states make your pain in the chest worse, this is chronic in nature and not a new finding. As you have previously been referred to pain management by her primary care provider I want to encourage you to make that appointment for follow-up so that you may have the best pain control. You will need to have her labs checked in 2 days to include your blood counts, your INR and renal function. You are going to receive an order for that here upon discharge. If at any point you have new or worsening symptoms and has states return to the emergency room. Patient Instructions: Warfarin (By mouth), Heart Failure (DC), Hematuria (GEN), Chronic Back Pain (DC), Elevated INR (DC) Patient Language: Thai Stand Alone Forms: General Discharge Information Follow-up/Referrals: Terrence,Annabelle Jovel MD [Non-Staff] - Call for Appointment Leandro Reyes MD [Physician] - Call for Appointment Arjun Jovel MD [Physician] - 2 Weeks Matthew,MD Aditya [Primary Care Provider] - Call for Appointment Discharge Medications: Continued calcitriol 0.25 mcg Capsule 0.25 mcg PO QAM ergocalciferol (vitamin D2) [Vitamin D2] 50,000 unit Capsule 50,000 unit PO WEEKLY Rx Instructions: on mondays at 0900 nitroglycerin 0.4 mg Tablet, Sublingual 0.4 mg SUBLINGUAL Q5-15M PRN (Reason: Chest Pain) Patient Comments: pt states he needs his prescription renewed insulin lispro [Humalog U-100 Insulin] 100 unit/mL solution 100 unit continuous subcutaneous infusion DAILY MDD 100 Qty: 100 1RF Patient Comments: 35.25 u/day 5a-8p: 1 u/hr 8p-5a: 2.25 u/hr (DME) Omnipod 5 G6 Pods (Gen 5) Cartridge SUBCUT Qty: 45 2RF Rx Instructions: Change every 48 hours Humulin N NPH Insulin KwikPen 100 unit/mL (3 mL) insulin pen 10 unit subcut DAILY PRN (Reason: if insulin pump malfunction; before dialysis) Qty: 15 1RF Patient Comments: use if insulin pump doesn't work levothyroxine 25 mcg tablet 25 mcg PO DAILY Qty: 90 1RF ezetimibe [Zetia] 10 mg Tablet 10 mg PO DAILY cetirizine [All Day Allergy (cetirizine)] 10 mg Tablet 10 mg PO DAILY atorvastatin 80 mg tablet 80 mg PO DAILY albuterol sulfate [ProAir HFA] 90 mcg/actuation HFA aerosol inhaler 1 inh inhalation QID PRN (Reason: shortness of breath or wheezing) Qty: 8.5 0RF gemfibrozil 600 mg tablet 600 mg PO Q12H febuxostat 40 mg tablet 40 mg PO QPM Linzess 72 mcg capsule 72 mcg PO DAILY PRN (Reason: Diarrhea) warfarin 3 mg tablet 3 mg PO DAILY Qty: 30 0RF Rx Instructions: everyday EXCEPT MONDAY omeprazole 20 mg capsule,delayed release(DR/EC) 20 mg PO DAILY potassium chloride 20 mEq tablet extended release 20 meq PO DAILY PRN (Reason: Cramps) torsemide 100 mg tablet 100 mg PO DAILY icosapent ethyl [Vascepa] 1 gram capsule 1 g PO Q12H amlodipine 10 mg tablet 10 mg PO HS Gvoke HypoPen 2-Pack 1 mg/0.2 mL auto-injector See Rx Instructions .ROUTE .COMPLEX PRN (Reason: Hypoglycemia) Rx Instructions: INJECT 1 MG(0.2 ML) UNDER THE SKIN ONCE A SINGLE DOSE, MAY REPEAT ONCE AFTER 15 MINUTES IF NO RESPONSE calcium acetate(phosphat bind) 667 mg capsule 667 mg PO QID erythromycin 5 mg/gram (0.5 %) ointment 1 applic EACH EYE HS insulin glargine [Lantus Solostar U-100 Insulin] 100 unit/mL (3 mL) insulin pen 10 unit subcut QPM Qty: 15 0RF Patient Comments: use if insulin pump is not working insulin aspart U-100 [Novolog FlexPen U-100 Insulin] 100 unit/mL (3 mL) insulin pen 5 unit subcut TIDWMEAL Qty: 15 0RF Patient Comments: use if insulin pump is not working cyclobenzaprine 10 mg tablet 5 - 10 mg PO TID PRN (Reason: muscle spasm) Qty: 10 0RF promethazine 12.5 mg tablet 12.5 mg PO TID Qty: 10 0RF famotidine 40 mg tablet 40 mg PO HS lidocaine 5 % adhesive patch,medicated 1 patch transdermal Q24H Patient Comments: Back metoprolol succinate 25 mg tablet extended release 24 hr 25 mg PO DAILY (DME) pen needle, diabetic [BD Lucrecia 2nd Gen Pen Needle] 32 gauge x 5/32 needle See Rx Instructions .ROUTE .COMPLEX Qty: 100 0RF Dose Instruction: TO ADMINISTER INSULIN DIRECTED Rx Instructions: TO ADMINISTER INSULIN DIRECTED Discontinued warfarin 3 mg tablet 1.5 mg PO WEEKLY Rx Instructions: on MONDAY Other Ambulatory Orders: Complete Blood Count with Diff (Routine) Timeframe: 2 Days Location: Determined by Patient Ordered By: Stephie Dykes Comprehensive Metabolic Panel (Routine) Timeframe: 2 Days Location: Determined by Patient Ordered By: Stephie Dykes Prothrombin Time INR (Routine) Timeframe: 2 Days Location: Determined by Patient Ordered By: Stephie Dykes Date of admission: 08/17/24 12:25 [facility] Santosh Lockwood Attending physician on admission: Stephie Dykes Condition: Stable Quality VTE Prophylaxis VTE prophylaxis: mechanical ordered Hospitalist MIPS Heart Failure (Exclusion) Patient has history of Heart Transplant or Left Ventricular Assistive Device?: No IF YES, STOP HERE Heart Failure (Qualifier) Patient has current or prior documentation of LVEF less than or equal to 40%, or mod/servere depressed LVSF?: No IF NO, STOP HERE
[2024-08-19 12:44] LABS: Glucose Point of Care 78 mg/dl (65-105)
--- OUTSIDE RECORDS SUMMARY | 2024-08-24 04:27 | XMS_ITS | CONTINUITY OF CARE DOCUMENT ---
Author Name archana magaña Address Unknown Organization [facility] Address [id number] [place] [address] [address] [place] [address] Phone [phone] Care Team Providers Care Agricultural And Forestry Supervisor Name Role Phone Shannon ARNOLD, Hamlet Unavailable STEPHANIE CORREA MD Unavailable [phone] STEPHANIE CORREA MD Unavailable [phone] PROBLEMS Condition Status Date Provider Notes CABG post active Annemarie Connelly RN Valve replacement active Annemarie Connelly RN care home anticoagulant therapy active Annemarie Connelly RN Family [...] Dizziness active Hamlet Ortega MD Overweight active Hmalet Ortega MD Aortic insufficiency active Hamlet Rodriguez A B G: active Hamlet Ortega MD (Status post) 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 GFR <15 active Hamlet Ortega MD Valve Surgery active Hamlet Ortega MD (Stat us post) ENCOUNTERS Date Type Provider Location Encounter Diag nosis - In-person encounter Office Visit Hamlet Ortega MD [facility] - In-person encounter Office Visit Hamlet Ortega MD [place] [facility] C A B G:Valve SurgeryCKD stage ESRD on dialysis GFR <15 - In-person encounter Office Visit Hamlet Ortega MD [place] [facility] - In-person encounter Office Visit Hamlet Ortega MD [facility] - In-person encounter Office Visit Hamlet Ortega MD [facility] OverweightAortic insufficiency - In-person encounter Office Visit Hamlet Ortega MD [facility] [facility] - In-person encounter Office Visit Hamlet Ortega MD [facility] - In-person encounter Office Visit Hamlet Ortega MD [facility] - In-person encounter Office Visit Hamlet Ortega MD [facility] - In-person encounter Office Visit Hamlet Ortega MD [place] - In-person encounter Office Visit Hamlet Ortega MD [place] - In-person encounter Office Visit Hamlet Ortega MD [place] [facility] - In-person encounter Office Visit Hamlet Ortega MD [facility] - In-person encounter Office Visit Hamlet Ortega MD [place] [facility] - In-person encounter Office Visit Hamlet Ortega MD [facility] - In-person encounter Office Visit Hamlet Ortega MD [facility] - In-person encounter Office Visit Hamlet Ortega MD [facility] - In-person encounter Office Visit Hamlet Ortega MD [facility] Dizziness - In-person encounter Office Visit Hamlet Ortega MD [facility] [facility] - In-person encounter Office Visit Hamlet Ortega MD [facility] - In-person encounter Office Visit Hamlet Ortega MD [facility] [facility] - In-person encounter Office Visit Hamlet Ortega MD [facility] Family History of Hypertension:Coronary artery diseaseShortness of breathDyspnea on exertionChest pain-type to be determinedDiabetes, Type 1HyperlipidemiaHTN essentialSleep apnea, obstructiveAcute deep venous thrombosis of leg, rightHypertensionCoronar y Heart Disease VITAL SIGNS Date Observation Value Provider Body Mass Index (Ratio) 40.31 kg/m2 Michael Ortega MD blood pressure, diastolic 79 mm[Hg] Samantha walsh [facility] blood pressure, systolic 169 mm[Hg] Molly lorena [facility] oxygen saturation, oximetry 100 % Lexus [facility] pulse rate 94 /min Lexus [facility] weight E&M 281 [lb_av] Lexus [facility] height E&M 70 [in_i] Lexus [facility] blood pressure, diastolic 101 mm[Hg] Chapo dena [place] blood pressure, systolic 157 mm[Hg] Vannahayden garay [place] oxygen saturation, oximetry 96 % [facility] pulse rate 122 /min [facility] [place] blood pressure, cuff size regular Chapo dena [place] Body Mass Index (Ratio) 38.62 kg/m2 Kyar on Major weight in kilograms E&M 122.11 kg Kyar on Major weight E&M 269.2 [lb_av] [facility]in_i[facility] height in centimeters E&M 177.80 cm Ky dena Major Body Mass Index (Ratio) 38.16 kg/m2 Michael Ortega MD pulse rate 71 /min Marva Posley blood pressure, diastolic 71 mm[Hg] Le slie Posley blood pressure, systolic 147 mm[Hg] Les lie Posley oxygen saturation, oximetry 98 % Marva Posley respiratory rate E&M 15 /min Marva Posley blood pressure, cuff size regular Le slie Posley weight E&M 266 [lb_av] Marva Posley height E&M 70 [in_i] Marva Posley Body Mass Index (Ratio) 38.31 kg/m2 Galen Nath blood pressure, cuff size regular Alexander rret blood pressure, diastolic 90 mm[Hg] Ja rret blood pressure, systolic 175 mm[Hg] Jar ret pulse rate 79 /min Omari er y oxygen saturation, oximetry 98 % Omari respiratory rate E&M 18 /min Omari weight E&M 267 [lb_av] Omari er y height E&M 70 [in_i] Omari er y Body Mass Index (Ratio) 37.88 kg/m2 Michael Ortega MD blood pressure, diastolic 81 mm[Hg] An ya Godwin blood pressure, systolic 151 mm[Hg] Nadine blake Godwin oxygen saturation, oximetry 98 % Saniya Godwin pulse rate 77 /min Saniya Godwin weight E&M 264 [lb_av] Saniya Godwin blood pressure, cuff size large An tami Godwin height E&M 70 [in_i] Saniya Godwin Body Mass Index (Ratio) 38.16 kg/m2 Michael Ortega MD blood pressure, cuff size regular Ja blood pressure, diastolic 79 mm[Hg] Alexander blood pressure, systolic 148 mm[Hg] [facility] pulse rate 79 /min Omari respiratory rate E&M 12 /min Omari oxygen saturation, oximetry 97 % [facility] weight E&M 266 [lb_av] Omari height E&M 70 [in_i] Omari Body Mass Index (Ratio) 37.59 kg/m2 Michael Ortega MD blood pressure, cuff size large Ja blood pressure, diastolic 95 mm[Hg] Alexander blood pressure, systolic 160 mm[Hg] [facility] pulse rate 75 /min Omari respiratory rate E&M 12 /min Omari oxygen saturation, oximetry 98 % Omari weight E&M 262 [lb_av] Omari y height E&M 70 [in_i] Omari Body Mass Index (Ratio) 39.74 kg/m2 Michael Ortega MD blood pressure, diastolic 65 mm[Hg] Glo dupontLogedu blood pressure, systolic 129 mm[Hg] Lavern Wallogedu blood pressure, diastolic 65 mm[Hg] Marion Ferrera blood pressure, systolic 129 mm[Hg] She hong Ferrera pulse rate 79 /min Miriam Ferrera respiratory rate E&M 20 /min Miriam Ferrera oxygen saturation, oximetry 97 % Miriam Ferrera blood pressure, cuff size regular Marion Ferrera weight E&M 277 [lb_av] Miriam Ferrera height E&M 70 [in_i] Miriam Ferrera Body Mass Index (Ratio) 38.59 kg/m2 Michael Ortega MD blood pressure, diastolic 83 mm[Hg] St dmitriy Hay blood pressure, systolic 155 mm[Hg] Wilfredo Hay oxygen saturation, oximetry 97 % Nida Hay respiratory rate E&M 16 /min Nida Light susan pulse rate 70 /min Nida Hay weight E&M 269 [lb_av] Nida Hay height E&M 70 [in_i] Nida Hay blood pressure, diastolic 92 mm[Hg] Sa ra Salcido blood pressure, systolic 170 mm[Hg] Amisha a Salcido respiratory rate E&M 18 /min Nina Si ms oxygen saturation, oximetry 95 % Nina Salcido pulse rate 78 /min Nina Salcido blood pressure, cuff size regular Sa ra Salcido height E&M 70 [in_i] Nina Salcido Body Mass Index (Ratio) 43.04 kg/m2 Michael Ortega MD blood pressure, diastolic 69 mm[Hg] Glo dupontLogedu blood pressure, systolic 140 mm[Hg] Lavern kLogic [...] maddie Holly blood pressure, diastolic 66 mm[Hg] Chad Holly blood pressure, systolic 150 mm[Hg] Aida Holly oxygen saturation, oximetry 96 % Karley Holly pulse rate 60 /min Karley kramer respiratory rate E&M 18 /min Karley Holly weight E&M 292 [lb_av] Karley Reese l height E&M 70 [in_i] Karley kramer Body Mass Index (Ratio) 42.18 kg/m2 Michael Ortega MD blood pressure, diastolic 73 mm[Hg] Ra rut Ortega MD blood pressure, systolic 149 mm[Hg] Bayron Ortega MD oxygen saturation, oximetry 96 % Nguyễn Subramanian respiratory rate E&M 18 /min Wilianmaicol jasson Subramanian pulse rate 59 /min Nguyễn Nick madison weight E&M 294 [lb_av] Sherrichard Nick madison height E&M 70 [in_i] Sherkeitha Craw madison Body Mass Index (Ratio) 41.18 kg/m2 Michael Ortega MD blood pressure, diastolic 79 mm[Hg] Cy ntsole Holly blood pressure, systolic 141 mm[Hg] Aida thia Holly blood pressure, cuff size regular Cy ntsole Holly pulse rate 57 /min Karley Campbel williams respiratory rate E&M 16 /min Karley Holly oxygen saturation, oximetry 98 % Karley Holly weight E&M 287 [lb_av] Karley Campbel l height E&M 70 [in_i] Karley Campbel l Body Mass Index (Ratio) 38.31 kg/m2 Michael Ortega MD blood pressure, diastolic 77 mm[Hg] Cy maddie Holly blood pressure, systolic 148 mm[Hg] Aida silvioa Holly blood pressure, cuff size regular Cy maddie Holly respiratory rate E&M 16 /min Karley Holly pulse rate 83 /min Karley Campbel l oxygen saturation, oximetry 97 % Karley Holly weight E&M 267 [lb_av] Karley Campbel l height E&M 70 [in_i] Karley Campbel l Body Mass Index (Ratio) 38.16 kg/m2 Michael Ortega MD blood pressure, cuff size regular Cy maddie Holly blood pressure, diastolic 58 mm[Hg] Cy ntflorecitaa Holly blood pressure, systolic 148 mm[Hg] Aida silvioa Holly oxygen saturation, oximetry 98 % Karley Holly respiratory rate E&M 16 /min Karley Holly pulse rate 53 /min Karley Campbel l weight E&M 266 [lb_av] Karley Campbel l height E&M 70 [in_i] Karley kramer Body Mass Index (Ratio) 37.73 kg/m2 Michael Ortega MD respiratory rate E&M 16 /min Karley Avni blood pressure, cuff size regular Cy fideflorecitahayden Avni blood pressure, diastolic 62 mm[Hg] Cy maddie Avni blood pressure, systolic 140 mm[Hg] Aida kathy Avni oxygen saturation, oximetry 97 % Karley Holly pulse rate 73 /min Karley kramer weight E&M 263 [lb_av] Karley kramer height E&M 70 [in_i] Karley Reese l Body Mass Index (Ratio) 38.16 kg/m2 Michael Ortega MD blood pressure, diastolic, standing 40 mm [Hg] Kimber Connelly blood pressure, systolic, standing 120 mm [Hg] Kimber Connelly blood pressure, diastolic, sitting 50 mm[ Hg] Kimber Connelly blood pressure, systolic, sitting 132 mm[ Hg] Kimber Connelly blood pressure, cuff size large Cr durga Connelly blood pressure, diastolic 50 mm[Hg] Cr durga Connelly blood pressure, systolic 132 mm[Hg] Jhonny Connelly oxygen saturation, oximetry 97 % Kimber Connelly respiratory rate E&M 17 /min Kimber Connelly pulse rate 64 /min Kimber marr weight E&M 266 [lb_av] Kimber marr height E&M 70 [in_i] Kimber marr Body Mass Index (Ratio) 39.45 kg/m2 Michael Otrega MD blood pressure, cuff size regular Cy maddie Holly blood pressure, diastolic 60 mm[Hg] Cy maddie Holly blood pressure, systolic 154 mm[Hg] Aida kathy Holly oxygen saturation, oximetry 98 % Karley Holly respiratory rate E&M 18 /min Karley oHlly pulse rate 65 /min Karley Reese l weight E&M 275 [lb_av] Karley Mkbel l height E&M 70 [in_i] Karley Terrazasbel l Body Mass Index (Ratio) 38.31 kg/m2 Michael Ortega MD oxygen saturation, oximetry 98 % Chastity Ab blood pressure, diastolic 70 mm[Hg] Ch astity Ab blood pressure, systolic 142 mm[Hg] Lolis stity Ab pulse rate 66 /min Chastity Ab respiratory rate E&M 16 /min Chastit y Ab weight E&M 267 [lb_av] Chastity Ab height E&M 70 [in_i] Lolisstity Ab Body Mass Index (Ratio) 37.73 kg/m2 Michael Ortega MD blood pressure, cuff size regular Cy maddie Holly blood pressure, diastolic 58 mm[Hg] Cy maddie Holly blood pressure, systolic 152 mm[Hg] Aida Holly oxygen saturation, oximetry 98 % Karley Holly respiratory rate E&M 16 /min Karley Holly pulse rate 65 /min Karley Reese l weight E&M 263 [lb_av] Karley Reese l height E&M 70 [in_i] Karley Terrazasbel l Body Mass Index (Ratio) 38.77 kg/m2 Michael Ortega MD blood pressure, resting Yes Rehana Burton blood pressure, diastolic 64 mm[Hg] Nisa Burton blood pressure, systolic 154 mm[Hg] Garima [...] Location coagulation managed by Pamela Nicole RN international normalized ratio (INR) 2.1 Rayna Rodriguez RN Normal coagulation managed by Pamela Nicole RN international normalized ratio (INR) 1.9 Pamela Nicole RN Normal coagulation managed by Pamela Nicole RN international normalized ratio (INR) 3.7 Pamela Nicole RN Normal coagulation managed by Pamela Nicole RN Pamela Nicole RN international normalized ratio (INR) 5.3 Pamela iNcole RN Normal coagulation managed by Moustapha Koehler [...] Normal coagulation managed by Robin Villarreal RN Robin Villarreal RN international normalized ratio (INR) [...] Robin Villarreal RN coagulation managed by Robin Arevalos RN Robin Villarreal RN international normalized ratio (INR) 2.2 Robin Villarreal RN Normal prothrombin time (patient) 26.3 s Robin Villarreal RN coagulation managed by Robin Arevalos RN Robin Arevalos RN international normalized ratio (INR) 1.2 Robin Arevalos RN Normal prothrombin time (patient) 14.5 s Robin Villarreal RN coagulation managed by Robin Villarreal RN Robin Arevalos RN international normalized ratio (INR) 1.4 Robin [...] LinkLogic 3.5-5.2 sodium, serum 140 mmol/L [employer]ic [phone]/03/ 21 urea nitrogen/creatini ne ratio, serum 17 [...] Not Estab. platelet count 261 X10E3/UL [employer] [phone]/03/ 21 red blood cell distribution width 13.9 [...] Status Instructions Dates Provider Indications Com ments Lovenox 120 mg/0.8 mL syringe active Inject one syringe twice a day for 5 days before the procedure, and for 2 days after procedure. Restart warfarin after procedure as well with lovenox. Moustapha Koehler RN amlodipine 10 mg tablet active 1 tablet by mouth once a day Hamlet Ortega MD warfarin 3 mg tablet active one tab daily - Except on Fri take 1 1/2 tab Moustapha Koehler RN care home anticoagulant therapy warfarin 3 mg tablet completed Take 1 tablet by mouth every evening EXCEPT on Mon Mon and Fri , take 1 and one half tablet. (4.5 mg) - Annemarie Connelly RN salvage determiner anticoagulant therapy warfarin 2 mg tablet completed 1 tab on 01/19, 01/20, 01/21, 01/22 - Robin Villarreal RN levothyroxine 25 mcg tablet active Take 1 tablet by mouth every morning Annemarie Connelly RN warfarin 3 mg tablet completed Take 1 tablet by mouth every evening EXCEPT on Mon and take one half tablet. (1.5 mg) - Moustapha Koehler RN salvage determiner anticoagulant therapy warfarin 2 mg tablet completed - Annemarie Connelly RN Vascepa 1 gram capsule active potassium chloride 20 mEq tablet extended release completed - Saniya Connelly metoprolol succinate 50 mg tablet extended release 24 hr active Take 1 tablet by mouth once a day Hamlet Ortega MD nifedipine 90 mg tablet extended release 24hr [...] by mouth once a day - Selina Wilkinson losartan 100 mg tablet completed Take 1 [...] pack completed Take as directed - Nida Hya amlodipine-benazep ril 5-10 mg capsule completed - [...] active 1 tablet three times a week Harriett Berger gemfibrozil 600 mg tablet completed 1 tablet twice a day - Nida Hay ALL DAY ALLERGY 10 MG ORAL CAPSULE active 1 tablet once a day Chastity Ab calcitriol 0.25 mcg capsule active 1 capsule three times a week Lolisstlian Ab furosemide 80 mg tablet completed Take [...] meal time followed by sliding scale - Lolisstity Ab VIAGRA 50 MG ORAL TABLET completed 1 tab every 24 hours - Lolisstlian Coronadoue PREDNISONE 10 MG ORAL TABLET completed as [...] ORAL TABLET completed ONE TAB. DAILY - Lolisstlian Berger CLONIDINE HCL 0.1 MG ORAL TABLET completed ONE TAB. TWICE DAILY - Karley Holly clopidogrel 75 mg tablet completed Take [...] completed One Tab By Mouth Daily - Lolisjamir Ab HYDRALAZINE HCL 100 MG ORAL TABLET completed 1 tab every 8 hours - Karley Holly RANITIDINE HCL 300 MG ORAL TABLET completed 1 tablet once a day - Hai Burton ELIQUIS 5 MG ORAL TABLET completed one tablet twice daily - Rehana Vasques RN SOCIAL HISTORY Date Observation Value Provider alcohol use no Hamlet iLght passive cigarette sm kat exposure no Hamlet [...] passive cigarette sm kat exposure no Saniya Connelly smoking status Never smoker Saniyahayden Connelly social history reviewed E&M revi ewed - [...] social history E&M Marital Statu s: C stevensonen: 3 O ccupation: Disabled Smoking History: P atient has never smoked. Hamlet Ortega MD social history reviewed E&M revi ewed - no changes required Hamlet Ortega MD passive cigarette sm kat exposure no Nida Satnam smoking status Never smoker Nida Satnam social history reviewed E&M revi ewed - no changes required Hamlet Ortega MD social history reviewed E&M revi ewed - no changes required Hamlet Ortega MD social history E&M Marital Statu s: Michael [...] acevedo social history E&M Marital Statu s: C [...] smoking status Never smoker Karley Arnel rosas social history E&M Marital Statu s: C claudioen: 3 O ccupation: Disabled Smoking History: P atient has never smoked. Hamlet Ortega MD social history reviewed E&M revi ewed - no changes required Hamlet Ortega MD passive cigarette sm kat exposure no Karley Avni smoking status Never smoker Karley Arnel orsas social history E&M Marital Statu s: C claudioen: 3 O ccupation: Disabled Smoking History: P atient has never smoked. Hamlet Ortega MD social history reviewed E&M revi ewed - no changes required Hamlet Ortega MD passive cigarette sm kat exposure no Karley Avni smoking status Never smoker Karley Arnel rosas social history E&M Marital Statu s: Michael sterling: 3 O ccupation: Disabled Smoking History: P atabdulkadir has never smoked. Hamlet Ortega MD social history reviewed E&M revi ewed - no changes required Hamlet Ortega MD smoking status Never smoker Kimber Bear starr social history E&M Marital Statu s: Michael sterling: 3 O ccupation: Disabled Smoking History: P atient has never smoked. Hamlet Ortega MD social history reviewed E&M revi ewed - no changes required Hamlet Ortega MD alcohol use no Karley Hugh kramer passive cigarette sm kat exposure no Karley Avni smoking status Never smoker Karley Arnel rosas social history E&M Marital Statu s: Michael sterling: 3 O ccupation: Disabled Smoking History: P atient has never smoked. Hamlet Ortega MD social history reviewed E&M revi ewed - no changes required Hamlet Ortega MD alcohol use no Chastity Ab passive cigarette sm kat exposure no Chastity Ab smoking status Never smoker Harriett Hogu e social history E&M Marital Statu s: Michael asher: 3 O ccupation: Disabled Smoking History: P atient has never smoked. Hamlet Ortega MD social history reviewed E&M revi ewed - no changes required Hamlet Ortega MD alcohol use no Karley kramer passive cigarette sm kat exposure no Karley Holly smoking status Never smoker Karley rosas alcohol use no Hamlet Light passive cigarette sm kat exposure no Hamlet Ortega MD social history reviewed E&M revi ewed - no changes required Hamlet Ortega MD social history E&M Marital Statu s: Michael [...] Payer name Policy type / Coverage type [place] [employer] party ID [id number] COMPLETE CARE [id number] (PPO C-SNP) Curse insurance [employer] [id number] [facility] Medicaid 3 [id number] ADVANCE DIRECTIVES Name Date DISCUSSED - NO DECISION MADE TREATMENT PLAN Date Name Performer [id number],SHamlet MD [id number],SHamlet MD [id number],SHamlet MD [id number],SHamlet MD [id number],SHamlet MD [id number],SHamlet MD [id number],SHamlet MD [id number],SHamlet MD [id number],SHamlet MD [id number],SHamlet MD [id number],S, Hamlet Ramada n [place] [id number],S, Hamlet Ramada n [place] [id number],S, Hamlet Ramada n [place] [id number],C,T he patient is using BiPAP on a regular basis. The patient has been benefiting from therapy and should continue use. Hamlet Ramadan [id number],S, Hamlet Ramada n [place] [id number],S, Hamlet Ramada n [place] [id number],S, Hamlet Ramada n [place] [id number],S, Hamlet Ramada n [place] [id number],S, Hamlet Ramada n [place] [id number],S, Hamlet Ramada n [place] [id number],S, Hamlet Ramada n [place] [id number],S, Hamlet Ramada n [place] [id number],S, Hamlet [place]ada [place] [id number],S, Hamlet Ramada n FL [id number],S, Hamlet Ramada n [place] [id number],S, Hamlet Ramada n [place] [id number],S, Hamlet Ramada n [place] [id number],C,T he patient is using CPAP on a regular basis. The patient has been benefiting from therapy and should continue use. Hamlet Ortega MD [id number],B, Hamlet Ramada n [id number],S, Hamlet Ramada n [place] [id number],B, Hamlet Merle guzman MD [id number],B, Hamlet Merle guzman MD [id number],S, Hamlettim Loredodewayne guzman MD [id number],S, Hamlet guzman MD [id number],B, Hamlet guzman MD [id number],S, Hamlet Merle guzman MD [id number],S,L ast stress 01/08 had some abnormalities that fit with known coronary anatomy. No significant symptoms at this point. Will follow closely, no cath at this point. Patient is encouraged to increase activity as tolerated, particularly exercise in form of walking on treadmill. Halmet Ortega MD [id number],B, Hamlet guzman MD [id number],S, Hamlet guzman MD [id number],S, Hamlet guzman MD [id number],C,T he patient is using CPAP on a regular basis. The patient has been benefiting from therapy and should continue use. Hamlet Ortega MD [id number],S, Hamlet guzman MD [id number],S,L ast stress 01/08 had some abnormalities that fit with known coronary anatomy. No significant symptoms at this point. Will follow closely, no cath at this point. Hamlet Ortega MD Cardiology Hamlet Ortega MD Cardiology Hamlet Ortega MD Cardiology Hamlet Ortega MD Cardiology Hamlet Ortega MD Cardiology: S /P CABG Hamlet Ortega MD Cardiology:Needs bridging for co lonoscopy. Hamlet Ortega MD Cardiology:RPM shows high BP. [...] to see if EF has improved. Reviewed [facility] records from surgery and tests. Hamlet Ortega [...] Ortega MD Cardiology hospital follow up Ra suzanq Shannon ARNOLD Cardiology hospital follow up Ra suzanq Shannon ARNOLD Cardiology hospital follow up Ra suzanq Shannon ARNOLD Cardiology hospital follow up Ra suzanq Shannon ARNOLD Cardiology follow up Hamlet cantu MD Cardiology follow up Hamlet cantu MD Cardiology follow up Hamlet cantu MD Cardiology follow up Hamlet cantu MD Cardiology follow up Hamlet cantu MD Cardiology follow up Hamlet cantu MD Cardiology follow up Hamlet cantu MD Cardiology:Mostly positional. Li nikita due to meds and DM. Hamlet Otrega MD Cardiology Hamlet Ortega MD Cardiology Hamlet [...] MD Cardiology Hamlet Ortega MD Cardiology:Needs cath Hamlet uribe MD Cardiology follow up Hamlet cantu MD Cardiology follow up Hamlet cantu MD Cardiology follow up Hamlet cantu MD Cardiology follow up Hamlet cantu MD Cardiology follow up Hamlet cantu MD Cardiology follow up aHmlet cantu MD Cardiology follow up Hamlet cantu MD Cardiology Hamlet Ortega MD Cardiology Hamlet Ortega MD Cardiology Hamlet Ortega MD Cardiology Hamlet Otrega MD Cardiology Hamlet Ortega MD Date Name [...] Phone Anti-Coag Management Robin Villarreal RN completed Protime Hamlet Ortega MD complete d Phone Anti-Coag Management Hamlet Ortega MD completed Phone Anti-Coag Management Hamlet Ortega MD completed Phone Anti-Coag Management Hamlet Ortega MD completed Phone Anti-Coag Management Hamlet Ortega MD completed Phone Anti-Coag Management Ramirez Newberry MD completed Protime Annemarie Connelly RN completed Jacob Newberry MD complete d Protime Kota Stover MD completed Protime Ramirez Newberry MD complete d Protime Robin Villarreal RN completed Protalexander Almonte MD complet ed Phone Anti-Coag Management Hamlet Ortega MD completed Protime Pro Alexis MD complet ed Protime Hamlet Ortega MD complete d Protime Hamlet Ortega MD complete d Phone Anti-Coag Management [...]
--- OUTSIDE RECORDS SUMMARY | 2024-08-24 04:27 | XMS_ITS | Clinical Summary ---
Author Organization [facility] Address [address] [place] [address] Care Team Providers Care Product Support Specialist Name Role Phone Aditya Castro Primary Care Provider Unavailab le Source Comments [facility],non-owned Affiliates and Associated Physician Practices is amultiple site organization consisting of ambulatory clinics and hospital sitesin [place], [place], [place] and [place]. This disclosure is being madepursuant to the Care Everywhere program and may not contain all information available regarding this patient. Last updated 18.[facility] Allergies Active Allergy Reactions Criticality Noted Date [...] needed 01/25/2019 Active vitamin D, ergocalciferol, (DRISDOL) 25487 units capsule Take 50,000 Units by mouth [...] fluticasone propionate (FLONASE) 50 MCG/ACT nasal spray [place] 1 spray into each nostril once daily 04/24/2019 Active epoetin (PROCRIT) 60472 UNIT/ML injection Inject subcutaneously every 14 days [...] were not included. Juvenal Daigle 1970 Referring Sheet Rocker: Leandro Reyes Dialysis Info: Type: PD Time: 160 days (11/05/2019) Blood Type: A Body mass index is 37.8 kg/m??. ALERTS Hardware Trainer: Vashti Lizama NP Past Medical History: Diagnosis Date ? ? Anemia ? ? Arthritis ? ? Arthropathy osteo. back and knees see Dr. Norton ? ? CAD (coronary artery disease) ? ? Community acquired pneumonia 2017 [facility] hospitalized with double pneumonia ? ? Congestive heart failure ? ? Coronary artery disease ? ? Diabetes mellitus type 1 teens dx when he was 13. Insulin since he was dx. Insulin pump currently with dexacom. Vashti Lizama NP is curriculum manager. ? ? DM (diabetes mellitus) TYPE 1 ? ? DVT (deep venous thrombosis) 2017 [facility]. ? ? ESRD on peritoneal dialysis ? ? Gout ? ? History of blood transfusion 2017 during admission for [place] ? ? HLD (hyperlipidemia) ? ? HTN (hypertension) ? ? Hypercholesteremia 5 years on med ? ? Hypertension 30's on medications. ? ? Kidney disease ? ? Myocardial infarction 2017 [facility]. Stent x1 placed. ? ? Neuropathy [...] file Gets together: Not on file Attends nondenominational service: Not on file Active member of [...] 07/02/2020: Committee Discussion Details: Pt brought to [facility] to discuss his cardiac workup. Team [...] Impression: It is the impression of this psychologist social that Juvenal Daigle has several positive factors [...] of safety concerns regarding immunosuppressants. ?? Plan: toll test desk worker to provide supportive services as needed. Patient appears to be a reasonable candidate for transplant from a psychosocial perspective. ?? -Post transplant arrangement forms are needed prior to being listed. Psychiatric Consult Recommended: No ?? Transplant Printed Circuit Board Panels Trimmer: Radha Roper LCSW ?? RD:05/14/2020 BMI= 40.0, [...] Comments Blood Pressure 140/60 07/13/2020 1:30 PM BANQUET MANAGER Pulse 65 07/13/2020 1:30 PM BANQUET MANAGER Temperature 36.1 ??C (97 ??F) 07/13/2020 1:30 PM BANQUET MANAGER Respiratory Rate 20 07/13/2020 1:30 PM BANQUET MANAGER Oxygen Saturation 95% 07/13/2020 1:30 PM BANQUET MANAGER Inhaled Oxygen Concentration - - Weight 134.3 kg (296 lb) 07/13/2020 1:30 PM BANQUET MANAGER Height 176.5 cm (5' 9.5 ) 07/13/2020 1:30 PM BANQUET MANAGER Body Mass Index 43.08 07/13/2020 1:30 PM BANQUET MANAGER Plan of Treatment Health Maintenance Due [...] ve Non-react bianca 05/14/2020 11:49 AM CDT [facility] Comment:Neither HIV-1 p24 An tigen nor HIV-1/HIV-2 Antibodies are detected. Blood BLOOD SPECIMEN / Unknown Lab Venipuncture / Unknown 05/14/2020 10:18 AM CDT 05/14/2020 10:57 AM CDT Glenny Martin MD LAB - HEMATOLOG Y ORDERABLES Performing Organization Address [facility]/State/[facility] Co de Phone Number [facility] [address] [place] [address], [facility] [phone] * (ABNORMAL) COMPREHENSIVE METABOLIC PANEL (05/14/2020 10:18 [...] LAB - CHEMISTRY ORDERABLES Performing Organization Address City/[facility]/ZIP Co de Phone Number [address] [address], [place] [phone] * HEPATITIS C ANTIBODY (05/14/2020 10:18 AM CDT) [facility] Hepatitis C Antibody Non-react bianca Paola-reac tive 05/14/2020 11:49 AM [facility] Comment:Hepatitis C Antibody screen indicates no [...] Glenny Martin MD LAB - CHEMISTRY ORDERABLES [facility] [address] [place] [address], [place] [phone] from Last 3 Months or Most Recently Relevant to Health Maintenance Insurance Payer Benefit Plan / Group Subscriber ID Effective Dates Phone Address Type AETNA MEDICARE ADV AETNA MEDICARE ADV HMO/PPO/PFFS [id number] Effective for all dates [address] [place] [address] Medicare-Co naged Care MEDICAID SPENDDOWN [facility] MEDICAID SPENDDOWN [facility] Effective for all dates [address] [place] [address] Medicaid AETNA MEDICARE ADV AETNA MEDICARE ADV HMO/PPO/PFFS [id number] Effective for all dates [address] [place] [address] Medicare-Co naged Care MEDICAID SP[employer]DOWN [facility] MEDICAID SP[employer]DOWN [facility] Effective for all dates [address] [place] [address] Medicaid AETNA MEDICARE ADV AETNA MEDICARE ADV HMO/PPO/PFFS [id number] Effective for all dates [address] [place] [address] [facility] MEDICAID SP[employer]DOWN [facility] MEDICAID SPENDDOWN [facility] Effective for all dates [address] [place] [address] Medicaid MEDICARE S MEDICARE PART B [id number] 08/21/2019-Pres ent [address] [address] [place] [address] Medicare MEDICAID - OUT OF [facility] [place] - [place] PUBLIC AID [id number] 08/21/2019-Pres ent [address] [address] [place] [address] Medicaid MEDICARE MEDICARE PART A AND B [id number] 08/21/2019-Pres ent [address] [place] [address] Medicare MEDICAID - [place] [id number] Effective for all dates [address] [address] [place] [address] Medicaid [place] Advance Directives * Full Code (Latest Code Status on File) Date Activated Date Inactivated Comments 11/22/2018 9:24 AM 11/23/2018 7:55 PM Care Teams Product Support Specialist Relationship Specialty Start Date End Date Aditya Castro Update Information PCP - General 03/06/19
--- OUTSIDE RECORDS SUMMARY | 2024-08-24 04:27 | XMS_ITS | Referral Summary ---
Author Organization [facility] Address [address] [place] [address] Care Team Providers Care Coordinating Producer Name Role Phone Aditya Castro Primary Care Provider Unavailab le Source Comments [facility],non-owned Affiliates and Associated Physician Practices is amultiple site organization consisting of ambulatory clinics and hospital sitesin [place], [place], [place] and [place]. This disclosure is being madepursuant to the Care Everywhere program and may not contain all information available regarding this patient. Last updated 18.[facility] Allergies Active Allergy Reactions Criticality Noted Date [...] needed 01/25/2019 Active vitamin D, ergocalciferol, (DRISDOL) 13907 units capsule Take 50,000 Units by mouth [...] fluticasone propionate (FLONASE) 50 MCG/ACT nasal spray [place] 1 spray into each nostril once daily 04/24/2019 Active epoetin (PROCRIT) 52424 UNIT/ML injection Inject subcutaneously every 14 days [...] were not included. Juvenal Daigle 1970 Referring Layout Worker: Leandro Reyes Dialysis Info: Type: PD Time: 160 days (11/05/2019) Blood Type: A Body mass index is 37.8 kg/m??. ALERTS Earth Moving Technician: Vashti Lizama NP Past Medical History: Diagnosis Date ? ? Anemia ? ? Arthritis ? ? Arthropathy osteo. back and knees see Dr. Norton ? ? CAD (coronary artery disease) ? ? Community acquired pneumonia 2017 [facility] hospitalized with double pneumonia ? ? Congestive heart failure ? ? Coronary artery disease ? ? Diabetes mellitus type 1 teens dx when he was 13. Insulin since he was dx. Insulin pump currently with dexacom. Vashti Lizama NP is cane flume chute operator. ? ? DM (diabetes mellitus) TYPE 1 ? ? DVT (deep venous thrombosis) 2017 [facility]. ? ? ESRD on peritoneal dialysis ? ? Gout ? ? History of blood transfusion 2017 during admission for [place] ? ? HLD (hyperlipidemia) ? ? HTN (hypertension) ? ? Hypercholesteremia 5 years on med ? ? Hypertension 30's on medications. ? ? Kidney disease ? ? Myocardial infarction 2017 [facility]. Stent x1 placed. ? ? [...] file Gets together: Not on file Attends religion service: Not on file Active member of [...] Details: Pt brought to [facility] to discuss his cardiac workup. Team [...] is the impression of this social media assistant that Juvenal Daigle has several positive factors [...] of safety concerns regarding immunosuppressants. ?? Plan: barge worker to provide supportive services as needed. Patient appears to be a reasonable candidate for transplant from a psychosocial perspective. ?? -Post transplant arrangement forms are needed prior to being listed. Psychiatric Consult Recommended: No ?? Transplant Engineer Chief: Radha Roper LCSW ?? RD:05/14/2020 BMI= 40.0, [...] Comments Blood Pressure 140/60 07/13/2020 1:30 PM MACHINIST TOOL AND DIE Pulse 65 07/13/2020 1:30 PM MACHINIST TOOL AND DIE Temperature 36.1 ??C (97 ??F) 07/13/2020 1:30 PM MACHINIST TOOL AND DIE Respiratory Rate 20 07/13/2020 1:30 PM MACHINIST TOOL AND DIE Oxygen Saturation 95% 07/13/2020 1:30 PM MACHINIST TOOL AND DIE Inhaled Oxygen Concentration - - Weight 134.3 kg (296 lb) 07/13/2020 1:30 PM MACHINIST TOOL AND DIE Height 176.5 cm (5' 9.5 ) 07/13/2020 1:30 PM MACHINIST TOOL AND DIE Body Mass Index 43.08 07/13/2020 1:30 PM MACHINIST TOOL AND DIE Plan of Treatment Not on file Procedures [...] ve Non-react bianca 05/14/2020 11:49 AM CDT [facility] Comment:Neither HIV-1 p24 An tigen nor HIV-1/HIV-2 Antibodies are detected. Blood BLOOD SPECIMEN / Unknown Lab Venipuncture / Unknown 05/14/2020 10:18 AM CDT 05/14/2020 10:57 AM CDT Glenny Martin MD LAB - HEMATOLOG Y ORDERABLES [facility] [address] [place] [address], [facility] [phone] * (ABNORMAL) COMPREHENSIVE METABOLIC PANEL (05/14/2020 10:18 AM CDT) Pathologist [facility] BUN 65(H) 7 - 26 mg/dL 05/14/2020 11:41 AM [facility] Creatinine 5.6(H) 0.6 - 1.2 mg/dL 05/14/2020 11:41 AM [facility] Sodium 142 136 - 145 mmol/L 05/14/2020 11:41 AM [facility] Potassium 3.7 3.5 - 4.5 mmol/L 05/14/2020 11:41 AM [facility] Chloride 101 98 - 107 mmol/L 05/14/2020 11:41 AM [facility] CO2 28 22 - 29 mmol/L 05/14/2020 11:41 AM [facility] Glucose 162(H) 70 - 115 mg/dL 05/14/2020 11:41 AM [facility] Calcium 9.0 8.4 - 10.2 mg/dL 05/14/2020 11:41 AM [facility] Protein Total 6.9 6.0 - 8.3 g/dL 05/14/2020 11:41 AM [facility] Albumin 3.7 3.4 - 5.0 g/dL 05/14/2020 11:41 AM [facility] Bilirubin Total 0.7 0.2 - 1.2 mg/dL 05/14/2020 11:41 AM [facility] Alkaline Phosphatase 140 40 - 150 Units/L 05/14/2020 11:41 AM [facility] ALT 43 0 - 55 Units/L 05/14/2020 11:41 AM [facility] AST 29 5 - 34 Units/L 05/14/2020 11:41 AM [facility] Anion Gap 17 8 - 18 05/14/2020 11:41 AM [facility] BUN/Creatinine Ratio 12 7 - 23 05/14/2020 11:41 AM [facility] Osmolality Calculated 316(H) 270 - 300 mOsm/kg 05/14/2020 11:41 AM [facility] Albumin/Globulin Ratio 1.2 1.1 - 2.3 05/14/2020 11:41 AM [facility] eGFR 11(L) >60 mL/min/1.7 3 m2 05/14/2020 11:41 AM [facility] Blood BLOOD SPECIMEN / Unknown Lab Venipuncture / Unknown 05/14/2020 10:18 AM CDT 05/14/2020 10:55 AM [facility] Glenny Martin MD LAB - CHEMISTRY ORDERABLES [facility] [address] [place] [address], [facility] [phone] * HEPATITIS C ANTIBODY (05/14/2020 10:18 AM CDT) Hepatitis C Antibody Non-react bianca Non-reac tive 05/14/2020 11:49 AM [facility] Comment:Hepatitis C Antibody screen indicates no serologic [...] Glenny Martin MD LAB - CHEMISTRY ORDERABLES [facility] [address] [place] [address], [facility] [phone] from Last 3 Months or Most Recently Relevant to Health Maintenance Advance Directives * Full Code (Latest Code Status on File) Date Activated Date Inactivated Comments 11/22/2018 9:24 AM 11/23/2018 7:55 PM Care Teams Coordinating Producer Relationship Specialty Start Date End Date Aditya Castro Update Information PCP - General 03/06/19
--- OUTSIDE RECORDS SUMMARY | 2024-08-24 04:28 | XMS_ITS | Encounter Summary ---
Author Organization [facility] Address [address] [place] [address] Care Team Providers Care Machinery Engineer Name Role Phone Aditya Castro Primary Care Provider Unavailab le Reason for Visit * Reason Comments Kidney Transplant Evaluation Encounter Details Date Type Department Care Team (Late st Contact Info) Description 07/03/2020 Telephone [facility] TRANSPLANT [address] [place] [address] Carey Chavez Kidney Transplant Evaluation [...] his appt into epic. 07/03/2020 1:40 PM ER [facility] documented in this encounter Plan of Treatment Not on file documented as of this encounter Visit Diagnoses Not on filedocumented in this encounter Care Teams Machinery Engineer Relationship Specialty Start Date End Date Aditya Castro Update Information PCP - General 03/06/19 documented as of this encounter
--- OUTSIDE RECORDS SUMMARY | 2024-08-24 04:28 | XMS_ITS | Encounter Summary ---
Author Organization [facility] Address [address] [place] [address] Care Team Providers Care Flight Service Specialist Name Role Phone Aditya Castro Primary Care Provider Unavailab le Reason for Visit * Reason Comments Kidney Transplant Evaluation Encounter Details Date Type Department Care Team (Late st Contact Info) Description 02/05/2020 Telephone [facility] TRANSPLANT [address] [place] [phone] Gracie Chambers, RN Kidney Transplant Evaluation Social [...] filedocumented in this encounter Care Teams Flight Service Specialist Relationship Specialty Start Date End Date Aditya Castro Update Information PCP - General 03/06/19 documented as of this encounter
--- OUTSIDE RECORDS SUMMARY | 2024-08-24 04:28 | XMS_ITS | Encounter Summary ---
Author Organization [facility] Address [address] [place] [address] Care Team Providers Care Hockey Instructor Name Role Phone Aditya Castro Primary Care Provider Unavailab le Reason for Visit * Radiology Services (Routine) - Closed Specialty Diagnoses / Procedures Referred By Aguilar lora Referred To Contact Diagnoses Pre-transplant evaluation for kidney transplant Procedures VAS BILATERAL VENOUS DUPLEX LE Glenny Martin MD [address] [place] [address] [facility]ney Transplant [address] [place] [address] Referral ID Status Reason Start Date Expiration Date Visits Re quested Visits Authorized [id number] Closed 05/14/2020 08/13/2020 1 1 Encounter Details Date Type Department Care Team (Late st Contact Info) Description 05/14/2020 10:40 AM CDT Hospital Encounter [facility] VASCULAR US [address] [place] [phone] Glenny Martin MD [address] [facility] [place] [address] Discharge Disposition: Home or Self Care Social [...] 12 hours as needed 01/25/2019 epoetin (PROCRIT) 79220 UNIT/ML injection Inject subcutaneously every 14 days ezetimibe (ZETIA) 10 MG tablet Take 10 mg by mouth once daily febuxostat (ULORIC) 40 MG tablet Take 40 mg by mouth 02/25/2019 ferrous sulfate EC (FERROUS SULFATE) 324 (65 Fe) MG tablet Take 324 mg by mouth once daily 02/21/2019 fluticasone propionate (FLONASE) 50 MCG/ACT nasal spray [place] 1 spray into each nostril once daily [...] test strip 04/17/2019 vitamin D, ergocalciferol, (DRISDOL) 89313 units capsule Take 50,000 Units by mouth [...] transplant documented in this encounter Care Teams Hockey Instructor Relationship Specialty Start Date End Date Aditya Castro Update Information PCP - General 03/06/19 documented as of this encounter
--- OUTSIDE RECORDS SUMMARY | 2024-08-24 04:28 | XMS_ITS | Encounter Summary ---
Author Organization [facility] Address [address] [place] [address] Care Team Providers Care Garment Alteration Examiner Name Role Phone Aditya Castro Primary Care [...] on filedocumented in this encounter Care Teams Garment Alteration Examiner Relationship Specialty Start Date End Date Aditya Castro Update Information PCP - General 03/06/19 documented as of this encounter
--- OUTSIDE RECORDS SUMMARY | 2024-08-24 04:28 | XMS_ITS | Encounter Summary ---
Author Organization [facility] Address [address] [place] [address] Care Team Providers Care Second Cook And Baker Name Role Phone Aditya Castro Primary Care Provider Unavailab le Reason for Referral * Laboratory Services (Routine) - Closed Specialty Diagnoses / Procedures Referred By Contac t Referred To Contact Diagnoses Pre-transplant evaluation for kidney transplant Procedures FACTOR V LEIDEN MUTATION PANEL Sourav Moscoso MD [address] [place] [address] Referral ID Status Reason Start Date Expiration Date Visits Re quested Visits Authorized [id number] Closed 03/24/2020 03/24/2021 1 1 * Laboratory Services (Routine) - Closed Specialty Diagnoses / Procedures Referred By Contac t Referred To Contact Diagnoses Pre-transplant evaluation for kidney transplant Procedures PROTHROMBIN [id number] PANEL Sourav Moscoso MD [address] [place] [address] Referral ID Status Reason Start Date Expiration Date Visits Re quested Visits Authorized [id number] Closed 03/24/2020 03/24/2021 1 1 Reason for Visit * Laboratory Services (Routine) - Closed Specialty Diagnoses / Procedures Referred By Contac t Referred To Contact Diagnoses Pre-transplant evaluation for kidney transplant Procedures PROTHROMBIN [id number] PANEL Sourav Moscoso MD [address] [employer] [address] [place] [address] Referral ID Status Reason Start Date Expiration Date Visits Re quested Visits Authorized [id number] Closed 03/24/2020 03/24/2021 1 1 Encounter Details Date Type Department Care Team (Late st Contact Info) Description 05/14/2020 10:00 AM CDT - 05/14/2020 10:24 AM CDT Hospital Encounter [facility] OP DRAW STATION [address] [place] [address] Glenny Martin MD [facility] [place] [place] [address] Discharge Disposition: Home or Self Care Social [...] 12 hours as needed 01/25/2019 epoetin (PROCRIT) 69861 UNIT/ML injection Inject subcutaneously every 14 days ezetimibe (ZETIA) 10 MG tablet Take 10 mg by mouth once daily febuxostat (ULORIC) 40 MG tablet Take 40 mg by mouth 02/25/2019 ferrous sulfate EC (FERROUS SULFATE) 324 (65 Fe) MG tablet Take 324 mg by mouth once daily 02/21/2019 fluticasone propionate (FLONASE) 50 MCG/ACT nasal spray [place] 1 spray into each nostril once daily [...] test strip 04/17/2019 vitamin D, ergocalciferol, (DRISDOL) 90443 units capsule Take 50,000 Units by mouth [...] CDT Pre-transplant evaluation for kidney transplant PROTHROMBIN [id number] PANEL Routine 05/14/2020 10:18 AM CDT Pre-transplant [...] PROTEIN S ANTIGEN (05/14/2020 10:18 AM CDT) [facility] Protein S Antigen Total 177(H) 60 - 150 % 05/16/2020 2:07 AM CDT [facility] ([facility]) Comment: This test was developed and its performance characteristics determined by [employer]. It has not been cleared or approved by the Food and Drug Administration. Total Protein S Antigen is an acute phase reactant protein and can be elevated in inflammatory states. Protein S Free 179(H) 57 - 157 % 05/16/2020 2:07 AM CDT [facility] ([facility]) Comment: This test was developed and its performance characteristics determined by [facility]. It has not been cleared or approved by the Food and Drug Administration. Blood BLOOD SPECIMEN / Unknown Lab Venipuncture / Unknown 05/14/2020 10:18 AM CDT 05/14/2020 10:[address] [facility] ([facility]) - 05/16/2020 2:07 AM CDT Performed at: ??01 - [facility] [address] ??[id number] Bread Dough Mixer: Con Grimaldo MD, Phone: ??[phone] Sourav Moscoso MD LAB - COAGULATION OR DERABLES [facility] ([facility]) [address] [place] [address], [facility] * ANTITHROMBIN III ACTIVITY (05/14/2020 10:18 AM CDT) Pathologist [facility] AT III Activity 125 76 - 128 % 0 9:58 PM CDT [facility] ([facility]) Comment: REFERENCE INTERVAL: Antithrombin, Enzymatic (Activity) Access complete set of age- and/or gender-specific reference intervals for this test in the [facility] Test Directory (Dress [employer]). Performed by [facility], [address] [place] [address] [email or web address], Valerie Mast MD, Lab. Director Blood BLOOD SPECIMEN / Unknown Lab Venipuncture / Unknown 05/14/2020 10:18 AM CDT 05/14/2020 10:51 AM CDT Sourav Moscoso MD LAB - COAGULATION OR DERABLES Performing Organization Address [facility]/ZIP Co de Phone Number [facility] [employer] [facility]) [address] [place] [address] * CARDIOLIPIN ANTIBODY IGM (05/14/2020 10:18 AM CDT) [facility] Cardiolipin Antibody IgM 0 0 - 12 MPL 05/17/2020 12:33 AM CDT [facility] ([facility]) Comment: INTERPRETIVE INFORMATION: Anti-Cardiolipin IgM 0-12 MPL: [...] other criteria phospholipid antibody tests. Performed By: [facility] [address] [place] [address] Testing Specialist: Valerie Mast MD Blood BLOOD SPECIMEN / Unknown Lab Venipuncture / Unknown 05/14/2020 10:18 AM CDT 05/14/2020 10:57 AM CDT Sourav Moscoso MD LAB - SEROLOGY ORDER ROVERTO [employer] ([facility]) [address] [place] [address] * CARDIOLIPIN ANTIBODY IGG (05/14/2020 10:18 AM CDT) Cardiolipin Antibody IgG 2 0 - 14 GPL 05/17/2020 12:32 AM CDT [facility] ([facility]) Comment: INTERPRETIVE INFORMATION: Anti-Cardiolipin IgG Ab 0-14 [...] other criteria phospholipid antibody tests. Performed By: [facility] [address] [place] [address] Testing Specialist: Valerie Mast MD Blood BLOOD SPECIMEN / Unknown Lab Venipuncture / Unknown 05/14/2020 10:18 AM CDT 05/14/2020 10:58 AM CDT Sourav Moscoso MD LAB - SEROLOGY ORDER ROVERTO [employer] ([facility]) [address] [place] [address], [facility] * FACTOR V LEIDEN MUTATION PANEL (05/14/2020 10:18 AM CDT) [facility] Factor V Leiden Source Whole Blood 05/21/2020 4:02 PM CDT [facility] ([facility]) Factor V Leiden PCR/FRET Negative 05/21/2020 4:02 PM CDT [facility] ([facility]) Comment: Indication for testing: Assess genetic risk for thrombosis. NEGATIVE: The factor V Leiden variant, c.1601G>A; p.[id number], was not detected. This does not exclude [...] function in the F5 gene variant c.1601G>A (p.Jwt097Tbd). Legacy nomenclature: R506Q (1691G>A) CLINICAL SENSITIVITY: 20-50 percent of individuals with an isolated VTE have the FVL variant. METHODOLOGY: Polymerase chain reaction and fluorescence monitoring. ANALYTICAL SENSITIVITY AND SPECIFICITY: 99 percent. LIMITATIONS: Diagnostic errors can occur due to rare sequence variations. F5 gene mutations, other than p.[id number], will not be detected. This test was developed and its performance characteristics determined by [facility]. It has not been cleared or approved by the [place] Food and Drug Administration. This test was performed in a CLIA certified laboratory and is intended for clinical purposes. Counseling and informed consent are recommended for genetic testing. Consent forms are available online. Performed by [facility], [address] [place] [address] [email or web address], Valerie Mast MD, Lab. Director Blood BLOOD SPECIMEN / Unknown Lab Venipuncture / Unknown 05/14/2020 10:18 AM CDT 05/14/2020 10:49 AM CDT Sourav Moscoso MD LAB - COAGULATION OR DERABLES [facility] [facility] ([facility]) [address] [place] [address], [facility] * PROTHROMBIN [id number] PANEL (05/14/2020 10:18 AM CDT) [facility] Prothrombin [id number] Negative 05/21/2020 8:19 PM CDT [facility] ([facility]) Comment: Indication for testing: Assess genetic risk for thrombosis. NEGATIVE: The Factor II, prothrombin B45535D mutation, was not detected. ??Other causes of [...] Cui, Ph.D. BACKGROUND INFORMATION: Prothrombin (F2) c.*97G>A ?(N71858T) Pathogenic Variant CHARACTERISTICS: The Factor II, c.*97G>A (T43487M) pathogenic variant is a common genetic risk [...] CAUSE: Homozygosity or heterozygosity for F2 c.*97G>A (W03716U). PATHOGENIC VARIANT TESTED: F2 c.*97G>A (X52314P). CLINICAL SENSITIVITY FOR VENOUS THROMBOSIS: Approximately 10 percent. METHODOLOGY: Polymerase chain reaction and fluorescence monitoring. ANALYTICAL SENSITIVITY AND SPECIFICITY: 99 percent. LIMITATIONS: Diagnostic errors can occur due to rare sequence variations. F2 gene variants, other than c.*97G>A (I40226V), will not be detected. This test was developed and its performance characteristics determined by [facility]. It has not been cleared or approved by the US Food and Drug Administration. This test was performed in a CLIA certified laboratory and is intended for clinical purposes. Counseling and informed consent are recommended for genetic testing. Consent forms are available online. Performed by [facility], [address] [place] [address],[place] [address] [email or web address], Valerie Mast MD, Lab. Director Source PT [id number] PCR Whole Blood 05/21/2020 8:19 PM CDT [facility] ([facility]) Blood BLOOD SPECIMEN / Unknown Lab Venipuncture / Unknown 05/14/2020 10:18 AM CDT 05/14/2020 10:48 AM CDT Sourav Moscoso MD LAB - COAGULATION OR DERABLES Performing Organization Address City/[facility]/ZIP Co de Phone Number [facility]) [address] * (ABNORMAL) HOMOCYSTEINE BLOOD QUANTITATIVE (05/14/2020 10:18 AM CDT) Homocysteine 21.1(H) 4.4 - 16.2 umol/L 05/14/2020 11:51 AM CDT [facility] Blood BLOOD SPECIMEN / Unknown Lab Venipuncture / Unknown 05/14/2020 10:18 AM CDT 05/14/2020 10:48 AM CDT Sourav Moscoso MD LAB - CHEMISTRY ORDE RABLES [place] [address] [place] [id number] [place] [address] * HLA ANTIBODY SCREEN LUM CLASS 1 ID (05/14/2020 10:18 AM CDT) % PRA 4 05/29/2020 7:59 AM CDT [facility] ([facility]) Class 1 LUM Specificity - 05/29/2020 7:59 AM CDT [facility] ([facility]) Class 1 LUM Test Date 0 05/29/2020 7:59 AM CDT [facility] ([facility]) Comment: This test was developed and its performance characteristics determined by the [facility]. ??It has not been cleared [...] high complexity clinical laboratory testing. ??CLIA ID# [id number] Performed at: ??[facility], [address] @ [place], [place] ??[phone] Bread [employer] Mixer: Jarrod Chin MD, Blood BLOOD SPECIMEN / Unknown Lab Venipuncture / Unknown 05/14/2020 10:18 AM CDT 05/14/2020 10:52 AM CDT Glenny Martin MD LAB - BLOOD BAN K ORDERABLES [facility] ([facility]) [address] [place] [address], [place] * HLA ANTIBODY SCREEN LUM CLASS 2 ID (05/14/2020 10:18 AM CDT) % PRA 90 05/29/2020 7:59 AM CDT [facility] ([facility]) Class 2 LUM Specificity - 05/29/2020 7:59 AM CDT [facility] ([facility]) Class 2 LUM Test Date 0 05/29/2020 7:59 AM CDT [facility] ([facility]) Comment: This test was developed and its performance characteristics determined by the [facility]. ??It has not been cleared [...] high complexity clinical laboratory testing. ??CLIA ID# [id number] Performed at: ??[facility], [address] @ [place], [place] ??[address] Bread Dough Mixer: Jarrod Chin MD, Blood BLOOD SPECIMEN / Unknown Lab Venipuncture / Unknown 05/14/2020 10:18 AM CDT 05/14/2020 10:52 AM CDT Glenny Martin MD LAB - BLOOD BAN K ORDERABLES Performing Organization Address City/[facility]/ZIP Co de Phone Number [facility] ([facility]) [address] [place] [address], [facility] * HIV-1 HIV-2 ANTIGEN/ANTIBODY (05/14/2020 10:18 AM CDT) HIV Antigen/Antibod y 1 & 2 Non-reacti ve Non-react bianca 05/14/2020 11:49 AM CDT [facility] Comment:Neither HIV-1 p24 An tigen nor HIV-1/HIV-2 Antibodies are detected. Blood BLOOD SPECIMEN / Unknown Lab Venipuncture / Unknown 05/14/2020 10:18 AM CDT 05/14/2020 10:57 AM CDT Glenny Martin MD LAB - HEMATOLOG Y ORDERABLES Performing Organization Address [facility] Co de Phone Number [facility]ORY [address] [address], [facility] [phone] * (ABNORMAL) HEPATITIS A ANTIBODY (05/14/2020 10:18 AM CDT) [facility] Hepatitis A Virus Antibody Total Positive( A) Negative 05/16/2020 11:02 AM CDT [facility] ([facility]) Comment: The positive anti-HAV is consistent with recent or remote Hepatitis A infection or antibody response to HAV vaccination. False positive anti-HAV can occur. Performed by [facility], [address] [place], [place] [id number] [email or web address], Valerie Mast MD, Lab. Director Blood BLOOD SPECIMEN / Unknown Lab Venipuncture / Unknown 05/14/2020 10:18 AM CDT 05/14/2020 10:57 AM CDT Glenny Martin MD LAB - CHEMISTRY ORDERABLES Performing Organization Address [facility] Co de Phone Number [facility] ([facility]) [address] [place] [address] * (ABNORMAL) PTH INTACT ([facility]) (05/14/2020 10:18 AM CDT) Pathologist [facility] PTH Intact 653.3(H) 8.0 - 77.0 pg/mL 05/14/2020 11:34 AM CDT [facility] Blood BLOOD SPECIMEN / Unknown Lab Venipuncture / Unknown 05/14/2020 10:18 AM CDT 05/14/2020 10:55 AM CDT Glenny Martin MD LAB - CHEMISTRY ORDERABLES [facility] [address] [place] [address], [facility] [phone] * TOXOPLASMA GONDII ANTIBODY IGG (05/14/2020 10:18 AM CDT) [facility] Toxoplasma Antibody IgG <3.0 IU/mL 05/16/2020 6:32 PM CDT [facility] ([facility]) Comment: INTERPRETIVE INFORMATION: Toxoplasma Ab, IgG ??7.1 [...] the amount of antibody present. Performed By: [facility] [address] [place] [address] Testing Specialist: Valerie Mast MD Blood BLOOD SPECIMEN / Unknown Lab Venipuncture / Unknown 05/14/2020 10:18 AM CDT 05/14/2020 10:58 AM CDT Glenny Martin MD LAB - CHEMISTRY ORDERABLES [facility]) [address] [place] [address], [facility] * STRONGYLOIDES ANTIBODY IGG (05/14/2020 10:18 AM CDT) Strongyloides Antibody IgG 0.2 <=0.9 IV 05/17/2020 10:58 PM CDT [facility] ([facility]) Comment: INTERPRETIVE INFORMATION: Strongyloides Ab, IgG by [...] also result in false-positive results. Performed By: [facility] [address] [place] [address] Testing Specialist: Valerie Mast MD Blood BLOOD SPECIMEN / Unknown Lab Venipuncture / Unknown 05/14/2020 10:18 AM CDT 05/14/2020 10:55 AM CDT Glenny Martin MD LAB - SEROLOGY ORDERABLES [facility]) [address] [place] [address], [facility] * PROSTATE SPECIFIC ANTIGEN SCREEN (05/14/2020 10:18 AM CDT) PSA Total 0.4 0.0 - 4.0 ng/mL 05/14/2020 11:59 AM CDT [facility] Blood BLOOD SPECIMEN / Unknown Lab Venipuncture / Unknown 05/14/2020 10:18 AM CDT 05/14/2020 10:55 AM CDT Glenny Martin MD LAB - CHEMISTRY ORDERABLES Performing Organization Address City/[facility]/ZIP Co de Phone Number [address] [address], [facility] [phone] * CANNABINOID SCREEN BLOOD (05/14/2020 10:18 AM CDT) Marijuana Metabolites Negative 05/17/2020 12:06 AM CDT [facility] ([facility]) Comment:REFERENCE RANGE: thr shold: 5 ng/mL Specimen Type Comment 05/17/2020 12:06 AM CDT [facility] ([facility]) Comment: WHOLE BLOOD This specimen was screened [...] CDT 05/14/2020 10:53 AM CDT Narrative [facility] ([facility]) - 05/17/2020 12:06 AM CDT Performed at: ??01 - [employer] [address] [place] [address] ??[phone] Bread Dough Mixer: Radha Callahan [facility], Phone: ??[phone] Glenny Martin MD LAB - CHEMISTRY ORDERABLES [facility] ([facility]) [address] [place] [id number] * IRON BLOOD (05/14/2020 10:18 AM CDT) Iron 84 50 - 175 mcg/dL 05/14/2020 11:41 AM CDT [facility] Blood BLOOD SPECIMEN / Unknown Lab Venipuncture / Unknown 05/14/2020 10:18 AM CDT 05/14/2020 10:57 AM CDT Glenny Martin MD LAB - CHEMISTRY ORDERABLES Performing Organization Address City/[facility]/ZIP Co de Phone Number [address] [address], [place] [phone] * (ABNORMAL) FERRITIN (05/14/2020 10:18 AM CDT) Ferritin 502(H) 22 - 275 ng/mL 05/14/2020 11:47 AM CDT [facility] Blood BLOOD SPECIMEN / Unknown Lab Venipuncture / Unknown 05/14/2020 10:18 AM CDT 05/14/2020 10:55 AM CDT Glenny Martin MD LAB - CHEMISTRY ORDERABLES [address] [address], [place] [phone] * TRANSFERRIN (05/14/2020 10:18 AM CDT) Transferrin 245 174 - 382 mg/dL 05/14/2020 11:41 AM CDT [facility] Transferrin Saturation % 27 16 - 50 % 05/14/2020 11:41 AM CDT [facility] Blood BLOOD SPECIMEN / Unknown Lab Venipuncture / Unknown 05/14/2020 10:18 AM CDT 05/14/2020 10:57 AM CDT Glenny Martin MD LAB - CHEMISTRY ORDERABLES Performing Organization Address [facility]/ZIP Co de Phone Number [facility] [address] [place] [address], [facility] [phone] * (ABNORMAL) VITAMIN D 25-HYDROXY (05/14/2020 10:18 AM CDT) Vitamin D, 25 Hydroxy 23.0(L) See comment: ng/mL 05/14/2020 11:48 AM CDT [facility] Comment: The recommendations for 25-Hydroxy Vitamin D [...] LAB - CHEMISTRY ORDERABLES Performing Organization Address [facility] Co de Phone Number [facility] [address] [place] [address], [place] [phone] * (ABNORMAL) URIC ACID BLOOD (05/14/2020 10:18 AM CDT) Pathologist [facility] Uric Acid 8.4(H) 2.6 - 7.2 mg/dL 05/14/2020 11:41 AM CDT [facility] Blood BLOOD SPECIMEN / Unknown Lab Venipuncture / Unknown 05/14/2020 10:18 AM CDT 05/14/2020 10:55 AM CDT Glenny Martin MD LAB - CHEMISTRY ORDERABLES [facility]ORY [facility] [address] [place] [address], [facility] [phone] * HLA TYPING DNA LOW RESOLUTION DR,DQ (05/14/2020 10:18 AM CDT) [facility] DR DQ Low Resolution DRB1-1 04 05/29/2020 7:59 AM CDT [facility] ([facility]) DR DQ Low Resolution DRB1-2 11 05/29/2020 7:59 AM CDT [facility] ([facility]) DR DQ Low Resolution DQB1-1 03 (DQ7) 05/29/2020 7:59 AM CDT [facility] ([facility]) DR DQ Low Resolution DQB1-2 03 (DQ8) 05/29/2020 7:59 AM CDT [facility] ([facility]) DR DQ Low Resolution DRB3-1 02 05/29/2020 7:59 AM CDT [facility] ([facility]) DR DQ Low Resolution DRB3-2 Negative 05/29/2020 7:59 AM CDT [facility] ([facility]) DR DQ Low Resolution DRB4-1 01 05/29/2020 7:59 AM CDT [facility] ([facility]) DR DQ Low Resolution DRB4-2 Negative 05/29/2020 7:59 AM CDT [facility] ([facility]) DR DQ Low Resolution DRB5-1 Negative 05/29/2020 7:59 AM CDT [facility] ([facility]) DR DQ Low Resolution DRB5-2 Negative 05/29/2020 7:59 AM CDT [facility] ([facility]) DR DQ Low Resolution Methodology SSOP 05/29/2020 7:59 AM CDT [facility] ([facility]) Comment DR DQ Low Resolution - 05/29/2020 7:59 AM CDT [facility] ([facility]) DR DQ Low Resolution test date 05/28/2020 05/29/2020 7:59 AM CDT [facility] ([facility]) Comment: This test was developed and its performance characteristics determined by the [facility]. ??It has not been cleared [...] high complexity clinical laboratory testing. ??CLIA ID# [id number] Performed at: ??[facility], [address] @ [place], [place] ??[address] Bread Dough Mixer: Jarrod Chin MD, Blood BLOOD SPECIMEN / Unknown Lab Venipuncture / Unknown 05/14/2020 10:18 AM CDT 05/14/2020 10:52 AM CDT Glenny Martin MD LAB - BLOOD BAN K ORDERABLES [facility] ([facility]) [address] [place] [address], [facility] * HLA TYPING DNA LOW RESOLUTION A,B,C (05/14/2020 10:18 AM CDT) ABC DNA A1 03 05/29/2020 7:59 AM CDT [facility] ([facility]) ABC DNA A2 29 05/29/2020 7:59 AM CDT [facility] ([facility]) ABC DNA B1 07 05/29/2020 7:59 AM CDT [facility] ([facility]) ABC DNA B2 44 05/29/2020 7:59 AM CDT [facility] ([facility]) ABC DNA BW1 6 05/29/2020 7:59 AM CDT [facility] ([facility]) ABC DNA BW2 4 05/29/2020 7:59 AM CDT [facility] ([facility]) ABC DNA C1 07 05/29/2020 7:59 AM CDT [facility] ([facility] ABC DNA C2 - 05/29/2020 7:59 AM CDT [facility] ([facility]) ABC DNA Methodology SSOP 05/29 7:59 AM CDT [facility] ([facility] Comment ABC DNA - 0 7:59 AM CDT [facility] ([facility]) ABC DNA Test Date 0 05/29/2020 7:59 AM CDT [facility] ([facility]) Comment: This test was developed and its performance characteristics determined by the [facility]. ??It has not been cleared [...] high complexity clinical laboratory testing. ??CLIA ID# [id number] Performed at: ??[facility], [address] @ [place], [place] ??[phone] Bread Dough Mixer: Jarrod Chin MD, Blood BLOOD SPECIMEN / Unknown Lab Venipuncture / Unknown 05/14/2020 10:18 AM CDT 05/14/2020 10:52 AM CDT Glenny Martin MD LAB - BLOOD BAN K ORDERABLES [facility] ([facility] [address] [place] [address], [facility] * VARICELLA ZOSTER ANTIBODY IGG (05/14/2020 10:18 AM CDT) [facility] Varicella zoster Virus Antibody IgG 3705.0 IV 05/16/2020 2:46 PM CDT [facility] ([facility]) Comment: INTERPRETIVE INFORMATION: VZV Ab, IgG 134.9 [...] laboratory at the same time. Performed By: [employer] [employer] [address] [place] [address] Testing Specialist: Valerie Mast MD Blood BLOOD SPECIMEN / Unknown Lab Venipuncture / Unknown 05/14/2020 10:18 AM CDT 05/14/2020 10:57 AM CDT Glenny Martin MD LAB - CHEMISTRY ORDERABLES Performing Organization Address [facility]/State/[facility] Co de Phone Number [employer] [facility]) [address] [place] [address], [facility] * MUMPS ANTIBODY IGG (05/14/2020 10:18 AM CDT) Mumps Virus Antibody IgG 17.2 AU/mL 05/16/2020 6:30 PM CDT [employer] ([facility]) Comment: INTERPRETIVE INFORMATION: Mumps Ab, IgG by [...] laboratory at the same time. Performed By: [employer] [address] [place] [address] Testing Specialist: Valerie Mast MD Blood BLOOD SPECIMEN / Unknown Lab Venipuncture / Unknown 05/14/2020 10:18 AM CDT 05/14/2020 10:57 AM CDT Glenny Martin MD LAB - CHEMISTRY ORDERABLES [employer] [facility]) [address] [place] [address], [facility] * RUBEOLA ANTIBODY IGG (05/14/2020 10:18 AM CDT) Measles (Rubeola) Antibody IgG >300.0 AU/mL 05/16/2020 2:46 PM CDT [facility] [employer] ([facility]) Comment: INTERPRETIVE INFORMATION: Measles (Rubeola) Antibody, IgG [...] laboratory at the same time. Performed By: [facility] [employer] [address] [place] [address] Testing Specialist: Valerie Mast MD Blood BLOOD SPECIMEN / Unknown Lab Venipuncture / Unknown 05/14/2020 10:18 AM CDT 05/14/2020 10:57 AM CDT Glenny Martin MD LAB - CHEMISTRY ORDERABLES Performing Organization Address [facility]/State/[facility] Co de Phone Number [facility] [employer] ([facility]) [address] [place] [address], [facility] * OPIATES BLOOD (05/14/2020 10:18 AM CDT) [facility] Opiates Screen Negative 05/17/2020 12:06 AM CDT [facility] ([facility]) Comment:REFERENCE RANGE: thr shold: 10 ng/mL Oxycodone Screen Negative 05/17/20 12:06 AM CDT [facility] ([facility]) Comment:REFERENCE RANGE: thr shold: 10 ng/mL Specimen Type Comment 05/17/2020 12:06 AM CDT [facility] ([facility]) Comment: WHOLE BLOOD This specimen was screened by immunoassay at the thresholds listed above. Presumptive positive results have not been confirmed by an alternate method; results are intended for clinical medical purposes. Please contact the laboratory if confirmatory testing is desired. This test was developed and its performance characteristics determined by [employer]. It has not been cleared or approved by the Food and Drug Administration. Blood BLOOD SPECIMEN / Unknown Lab Venipuncture / Unknown 05/14/2020 10:18 AM CDT 05/14/2020 10:53 AM CDT Narrative [facility] ([facility]) - 05/17/2020 12:06 AM CDT Performed at: ??01 - [employer] [address] ??[id number] [employer]: Radha Callahan [facility], Phone: ??[phone] Glenny Martin MD LAB - CHEMISTRY ORDERABLES [facility] ([facility]) [address] [id number] * COCAINE METABOLITE QUANT (05/14/2020 10:18 AM CDT) [facility] Cocaine and Metabolite Blood <20 ng/mL 05/17/2020 11:07 PM CDT [facility] ([facility]) Comment: INTERPRETIVE INFORMATION: Cocaine Metabolite, ?Serum or Plasma, ?Quantitative Methodology: Quantitative Gas Chromatography- Mass Spectrometry Positive cutoff: 20 ng/mL ?? For medical purposes only; not valid for forensic use. The concentration value must be greater than or equal to the cutoff to be reported as positive. Interpretive questions should be directed to the laboratory. Test developed and characteristics determined by [employer]. See Compliance Statement B: [email or web address]/CS Performed By: [employer] [address] [place] [id number] Testing Specialist: Valerie Mast MD Blood BLOOD SPECIMEN / Unknown Lab Venipuncture / Unknown 05/14/2020 10:18 AM CDT 05/14/2020 10:55 AM CDT Glenny Martin MD LAB - CHEMISTRY ORDERABLES Performing Organization Address [facility]/ZIP Co de Phone Number [employer] ([facility]) [address] * AMPHETAMINE BLOOD CONFIRMATION (05/14/2020 10:18 AM CDT) Amphetamines Confirmation <20 ng/mL 05/20/2020 12:29 PM CDT [facility] [employer] ([facility]) Comment: INTERPRETIVE INFORMATION: Amphetamines, Serum or ?Plasma, [...] laboratory. Test developed and characteristics determined by [employer]. See Compliance Statement B: [email or web address]/CS Methamphetamine Confirmation <20 ng/mL 05/20/2020 12:29 PM CDT [facility] ([facility]) MDA Confirmation <20 ng/mL 05/20/20 20 12:29 PM CDT [facility] [employer] [facility]) MDMA Confirm <20 ng/mL 05/20/2020 12:29 PM CDT [facility]) MDEA Confirmation <20 ng/mL 020 12:29 PM CDT [facility] [employer] [facility]) Comment: Performed By: [employer] [address] [place] [address] Testing Specialist: Valerie Mast MD Blood BLOOD SPECIMEN / Unknown Lab Venipuncture / Unknown 05/14/2020 10:18 AM CDT 05/14/2020 10:57 AM CDT Glenny Martin MD LAB - CHEMISTRY ORDERABLES Performing Organization Address [facility]/ZIP Co de Phone Number [employer] ([facility]) [address] * NICOTINE + METABOLITES BLOOD (05/14/2020 10:18 AM CDT) Nicotine <2 ng/mL 05/18/2020 10:08 PM CDT [facility] ([facility]) Comment: Consistent with abstinence from nicotine-containing products [...] ?? Test developed and characteristics determined by [employer]. See Compliance Statement B: [email or web address] Performed By: [facility] [employer] [address] [place] [address] Testing Specialist: Valerie Mast MD 3-Hydroxy Cotinine <2 ng/mL 2019 10:08 PM CDT [employer] [facility]) Cotinine <2 ng/mL 05/18/2020 10:08 PM CDT [facility] [employer] [facility]) Blood BLOOD SPECIMEN / Unknown Lab Venipuncture / Unknown 05/14/2020 10:18 AM CDT 05/14/2020 10:57 AM CDT Glenny Martin MD LAB - CHEMISTRY ORDERABLES [employer] ([facility]) [address] [place] [address], [facility] * ALCOHOL ETHYL BLOOD (05/14/2020 10:18 AM CDT) [facility] Interpretation Ethanol None Detected None Detected mg/dL 05/14/2020 11:41 AM CDT [facility] Comment:Ethanol levels less than 10 mg/dL are resulted as None detected . Blood BLOOD SPECIMEN / Unknown Lab Venipuncture / Unknown 05/14/2020 10:18 AM CDT 05/14/2020 10:55 AM CDT Glenny Martin MD LAB - CHEMISTRY ORDERABLES Performing Organization Address [facility] Co de Phone Number [address] [address], [facility] [phone] * SYPHILIS ANTIBODY CASCADING REFLEX (05/14/2020 10:18 AM CDT) [facility] Treponema pallidum Antibody Non-react bianca Non-react bianca 05/14/2020 11:47 AM CDT [facility] Comment: No Laboratory evidence of syphilis infection. ?? Note: ??Circulating antibodies may be low or undetectable in early infection. ??If recent exposure is suspected, re-draw sample in 2-4 weeks and repeat testing. Blood BLOOD SPECIMEN / Unknown Lab Venipuncture / Unknown 05/14/2020 10:18 AM CDT 05/14/2020 10:55 AM CDT Glenny Martin MD LAB - SEROLOGY ORDERABLES Performing Organization Address [facility] Co de Phone Number [address] [address], [facility] [phone] * (ABNORMAL) HEMOGLOBIN A1C (05/14/2020 10:18 AM CDT) [facility] Hemoglobin A1c 7.7(H) 4.4 - 6.3 % 05/14/2020 3:37 PM CDT [facility] Estimated Average Glucose 174 mg/dL 05/14/2020 3:37 PM CDT [facility] Comment: HbA1c Interpretation: Treatment target values recommended by ADA and other clinical organizations should be used to evaluate metabolic control in patients. Treatment Target Values: Normal : < 5.7% Pre-diabetes: 5.7-6.4% Diabetes: Equal to or greater than 6.5% Reference: [place] Diabetes Association Standards of Care in Diabetes -2014 In patients 70 years and older consider HbA1c target range of 7.0-7.5% Reference: ??Diabetes Mellitus in Older People: Position Statement on behalf of the International Association of Gerontology and Geriatrics (IAGG), the Diabetes Working Republican for Older People (EDWPOP), and the International Task Force of Experts in Diabetes. ??Hermelindo Remy, et al. J [place] [employer] Association. 2012 Test results diagnostic of diabetes should be repeated for confirmation. The Sebia Capillary 2 assay for the measurement of HbA1c is a National Glycohemoglobin Standardization Program (NGSP)certified method. Blood BLOOD SPECIMEN / Unknown Lab Venipuncture / Unknown 05/14/2020 10:18 AM CDT 05/14/2020 10:55 AM CDT Glenny Martin MD LAB - CHEMISTRY ORDERABLES Performing Organization Address [facility] de Phone Number [facility] [address] [address], [facility] [phone] * (ABNORMAL) MADIHA-CA VIRUS ANTIBODY TO VCA IGG (05/14/2020 10:18 AM CDT) Madiha-Ca Virus Antibody IgG Viral Capsid Antigen 115.0(H) 0.0 - 21.9 U/mL 05/16/2020 5:10 PM CDT [facility] ([facility]) Comment: INTERPRETIVE INFORMATION: Madiha-Ca Virus Antibody to ?Viral Capsid Antigen, IgG ??17.9 U/mL or less.......Not Detected ??18.0-21.9 U/mL..........Indeterminate - Repeat testing in ?10-14 days may be helpful. ??22.0 U/mL or greater....Detected Performed By: [employer] [address] [place] [id number] Testing Specialist: Valerie Mast MD Blood BLOOD SPECIMEN / Unknown Lab Venipuncture / Unknown 05/14/2020 10:18 AM CDT 05/14/2020 10:55 AM CDT Glenny Martin MD LAB - CHEMISTRY ORDERABLES [employer] [facility]) [address] * CYTOMEGALOVIRUS ANTIBODY IGG BLOOD (05/14/2020 10:18 AM CDT) [facility] Cytomegalovirus Antibody IgG >10.00 U/mL 05/16/2020 6:28 PM CDT [employer] ([facility]) Comment: INTERPRETIVE INFORMATION: Cytomegalovirus Antibody, IgG ??0.59 [...] laboratory at the same time. Performed By: [facility] [address] [place] [address] Testing Specialist: Valerie Mast MD Blood BLOOD SPECIMEN / Unknown Lab Venipuncture / Unknown 05/14/2020 10:18 AM CDT 05/14/2020 10:55 AM CDT Glenny Martin MD LAB - CHEMISTRY ORDERABLES [facility] ([facility]) [address] * HEPATITIS C ANTIBODY (05/14/2020 10:18 AM CDT) Hepatitis C Antibody Non-react bianca Non-reac tive 05/14/2020 11:49 AM CDT [facility] Comment:Hepatitis C Antibody screen indicates [...] LAB - CHEMISTRY ORDERABLES Performing Organization Address [facility]/ZIP Co de Phone Number [facility] [address] [place] [address], [facility] [phone] * (ABNORMAL) HEPATITIS B SURFACE ANTIBODY (05/14/2020 10:18 AM CDT) Pathologist [facility] Hepatitis B Virus Surface Antibody Reactive( A) Non-react bianca 05/14/2020 11:47 AM CDT [facility] Comment: > 12 mIU/mL Hepatitis B surface Antibody (HBsAb). Reactive for HBsAb - individual is considered immune to Hepatitis B Virus infection. Hepatitis B Surface Antibody Quantitative 72.7(H) <8.0 mIU/mL 05/14/2020 11:47 AM CDT [facility] Comment: Hepatitis B Surface Antibody Numeric Result Interpretation: ? Nonreactive: ?<8.0 mIU/mL ? Indeterminate: ??8.0 - 12.0 mIU/mL ? Reactive: ?>12.0 mIU/mL ? Blood BLOOD SPECIMEN / Unknown Lab Venipuncture / Unknown 05/14/2020 10:18 AM CDT 05/14/2020 10:55 AM CDT Glenny Martin MD LAB - CHEMISTRY ORDERABLES [address] [address], [place] [phone] * HEPATITIS B CORE ANTIBODY (05/14/2020 10:18 AM CDT) HBc Antibody Total Non-reacti ve Non-reacti ve 05/14/2020 11:47 AM CDT [facility] Blood BLOOD SPECIMEN / Unknown Lab Venipuncture / Unknown 05/14/2020 10:18 AM CDT 05/14/2020 10:55 AM CDT Glenny Martin MD LAB - CHEMISTRY ORDERABLES Performing Organization Address City/[facility]/ZIP Co de Phone Number [address] [address], [place] [phone] * HEPATITIS B SURFACE ANTIGEN W RFLX CONFIRMATION (05/14/2020 10:18 AM CDT) Hepatitis B Virus Surface Antigen Non-reacti ve Non-reacti ve 05/14/2020 11:47 AM CDT [facility] Blood BLOOD SPECIMEN / Unknown Lab Venipuncture / Unknown 05/14/2020 10:18 AM CDT 05/14/2020 10:55 AM CDT Glenny Martin MD LAB - CHEMISTRY ORDERABLES [address] [address], [place] [phone] * (ABNORMAL) LIPID PROFILE (05/14/2020 10:18 AM CDT) Cholesterol Total 137 <200 mg/dL 05/14/2020 11:41 AM CDT [facility] HDL 28(L) >40 mg/dL 05/14/2020 11:41 AM [facility] Comment: ATP III Classification of HDL Cholesterol: ? <40 mg/dL: ??Considered a major risk factor. ? >60 mg/dL: ??Considered a negative risk factor. ? LDL Calculated 70 <100 mg/dL 05/14/2020 11:41 AM [facility] Comment: ATP III Classification of LDL Cholesterol: ?<100 mg/dL: ??Optimal ? 100 - 129 mg/dL: ??Near Optimal/Above Optimal ? 130 - 159 mg/dL: ??Borderline High ? 160 - 189 mg/dL: ??High ?>190 mg/dL: ??Very High ? Triglycerides 196(H) <150 mg/dL 05/14/2020 11:41 AM [facility] Comment: ATP III Classification of Triglycerides: ?<150 mg/dL: ??Normal ? 150 - 199 mg/dL: ??Borderline High ? 200 - 400 mg/dL: ??High ?>500 mg/dL: ??Very High Blood BLOOD SPECIMEN / Unknown Lab Venipuncture / Unknown 05/14/2020 10:18 AM CDT 05/14/2020 10:55 AM CDT Glenny Martin MD LAB - CHEMISTRY ORDERABLES [facility] [address] [place] [address], [facility] [phone] * (ABNORMAL) PHOSPHORUS BLOOD (05/14/2020 10:18 AM CDT) Phosphorus 5.1(H) 2.3 - 4.7 mg/dL 05/14/2020 11:41 AM T [facility] Blood BLOOD SPECIMEN / Unknown Lab Venipuncture / Unknown 05/14/2020 10:18 AM CDT 05/14/2020 10:55 AM T Glenny Martin MD LAB - CHEMISTRY ORDERABLES [facility] [address] [place] [address], [facility] [phone] * (ABNORMAL) COMPREHENSIVE METABOLIC PANEL (05/14/2020 10:18 AM CDT) BUN 65(H) 7 - 26 mg/dL 05/14/2020 11:41 AM [facility] Creatinine 5.6(H) 0.6 - 1.2 mg/dL 05/14/2020 11:41 AM [facility] Sodium 142 136 - 145 mmol/L 05/14/2020 11:41 AM [facility] Potassium 3.7 3.5 - 4.5 mmol/L 05/14/2020 11:41 AM [facility] Chloride 101 98 - 107 mmol/L 05/14/2020 11:41 AM [facility] CO2 28 22 - 29 mmol/L 05/14/2020 11:41 AM [facility] Glucose 162(H) 70 - 115 mg/dL 05/14/2020 11:41 AM [facility] Calcium 9.0 8.4 - 10.2 mg/dL 05/14/2020 11:41 AM [facility] Protein Total 6.9 6.0 - 8.3 g/dL 05/14/2020 11:41 AM [facility] Albumin 3.7 3.4 - 5.0 g/dL 05/14/2020 11:41 AM [facility] Bilirubin Total 0.7 0.2 - 1.2 mg/dL 05/14/2020 11:41 AM [facility] Alkaline Phosphatase 140 40 - 150 Units/L 05/14/2020 11:41 AM [facility] ALT 43 0 - 55 Units/L 05/14/2020 11:41 AM [facility] AST 29 5 - 34 Units/L 05/14/2020 11:41 AM [facility] Anion Gap 17 8 - 18 05/14/2020 11:41 AM [facility] BUN/Creatinine Ratio 12 7 - 23 05/14/2020 11:41 AM [facility] Osmolality Calculated 316(H) 270 - 300 mOsm/kg 05/14/2020 11:41 AM [facility] Albumin/Globulin Ratio 1.2 1.1 - 2.3 05/14/2020 11:41 AM [facility] eGFR 11(L) >60 mL/min/1.7 3 m2 05/14/2020 11:41 AM [facility] Blood BLOOD SPECIMEN / Unknown Lab Venipuncture / Unknown 05/14/2020 10:18 AM CDT 05/14/2020 10:55 AM T Glenny Martin MD LAB - CHEMISTRY ORDERABLES [facility] [address] [place] [address], [facility] [phone] * (ABNORMAL) CBC W AUTO DIFFERENTIAL (05/14/2020 10:18 AM [facility]) WBC 5.0 3.5 - 10.5 10? 3 /uL 05/14/2020 11:03 AM [facility] RBC 3.45(L) 4.30 - 5.70 10? 6 /uL 05/14/2020 11:03 AM [facility] Hemoglobin 10.7(L) 13.5 - 17.5 g/dL 05/14/2020 11:03 AM [facility] Hematocrit 31.1(L) 39.0 - 50.0 % 05/14/2020 11:03 AM [facility] MCV 90.1 81.0 - 97.0 fL 05/14/2020 11:03 AM [facility] MCH 31.0 28.0 - 34.0 pg 05/14/2020 11:03 AM [facility] MCHC 34.4 32.0 - 36.0 g/dL 05/14/2020 11:03 AM [facility] Platelet Count 232 150 - 400 10? 3 /uL 05/14/2020 11:03 AM [facility] RDW-SD 42.4 36.0 - 50.0 fL 05/14/2020 11:03 AM [facility] RDW-CV 12.9 11.2 - 14.8 % 05/14/2020 11:03 AM [facility] MPV 9.8 9.3 - 12.8 fL 05/14/2020 11:03 AM [facility] nRBC Absolute 0.00 0 10? 3 /uL 05/14/2020 11:03 AM [facility] nRBC Auto 0.0 0 /100 WBC 05/14/2020 11:03 AM [facility] Neutrophils % 54.8 35.0 - 70.0 % 05/14/2020 11:03 AM [facility] Lymphocytes % 31.2 19.7 - 55.1 % 05/14/2020 11:03 AM [facility] Monocytes % 9.4 3.0 - 15.0 % 05/14/2020 11:03 AM [facility] Eosinophils % 3.8 0.0 - 6.0 % 05/14/2020 11:03 AM [facility] Basophil % 0.6 0.0 - 1.5 % 05/14/2020 11:03 AM [facility] Neutrophils Absolute 2.7 1.6 - 7.0 10? 3 /uL 05/14/2020 11:03 AM [facility] Lymphocyte Absolute 1.6 0.8 - 2.9 10? 3 /uL 05/14/2020 11:03 AM [facility] Monocytes Absolute 0.47 0.14 - 0.66 10? 3 /uL 05/14/2020 11:03 AM [facility] Eosinophils Absolute 0.19 0.00 - 0.45 10? 3 /uL 05/14/2020 11:03 AM [facility] Basophils Absolute 0.03 0.00 - 0.06 10? 3 /uL 05/14/2020 11:03 AM [facility] Immature Granulocytes % 0.2 0.0 - 1.0 % 05/14/2020 11:03 AM [facility] Blood BLOOD SPECIMEN / Unknown Lab Venipuncture / Unknown 05/14/2020 10:18 AM CDT 05/14/2020 10:55 AM CDT Glenny Martin MD LAB - HEMATOLOG Y ORDERABLES [facility] [address] [place] [address], [place] [phone] * BLOOD TYPE ABO+ RH PANEL (05/14/2020 10:18 AM CDT) ABO Rh A POS 05/14/2020 12:11 PM CDT [facility] Blood BLOOD SPECIMEN / Unknown Lab Venipuncture / Unknown 05/14/2020 10:18 AM CDT 05/14/2020 11:29 AM CDT Glenny Martin MD LAB - BLOOD BAN K ORDERABLES Performing Organization Address [facility] Co de Phone Number [facility] [address] [place] [address], [place] [phone] * PROTEIN C ACTIVITY (05/14/2020 10:18 AM CDT) Protein C Activity 155 83 - 168 % 05/16/2020 10:47 PM CDT [facility] ([facility]) Comment: INTERPRETIVE INFORMATION: Protein C, Functional Patients [...] reference intervals for this test in the [facility] Test Directory ([employer]). Performed by [facility], [address] [place] [id number] [email or web address], Valerie Mast MD, Lab. Director Blood BLOOD SPECIMEN / Unknown Lab Venipuncture / Unknown 05/14/2020 10:18 AM CDT 05/14/2020 10:48 AM CDT Glenny Martin MD LAB - COAGULATI ON ORDERABLES [facility] ([facility]) [address] * RUBELLA ANTIBODY IGG TITER (05/14/2020 10:18 AM CDT) Rubella Antibody IgG 50.1 IU/mL 05/16/2020 6:32 PM CDT [facility] [employer] ([facility]) Comment: INTERPRETIVE INFORMATION: Rubella Antibody, IgG ??Less [...] the amount of antibody present. Performed By: [facility] [address] [place] [address] Testing Specialist: Valerie Mast MD Blood BLOOD SPECIMEN / Unknown Lab Venipuncture / Unknown 05/14/2020 10:18 AM CDT 05/14/2020 10:56 AM CDT Glenny Martin MD LAB - SEROLOGY ORDERABLES [facility] [employer] ([facility]) [address] * TYPE + SCREEN PANEL (05/14/2020 10:06 AM CDT) Pathologist [facility] Antibody Screen NEG 0 12:17 PM CDT [facility] ABO Rh A POS 05/14/2020 12:17 PM CDT [facility] Blood Bank BLOOD SPECIMEN / Unknown Lab Venipuncture / Unknown 05/14/2020 10:06 AM CDT 05/14/2020 11:30 AM CDT Glenny Martin MD LAB - BLOOD BAN K ORDERABLES [facility] [address] [place] [address], [facility] [phone] documented in this encounter Visit Diagnoses Diagnosis Pre-transplant evaluation for kidney transplant- Primary documented in this encounter Care Teams Second Cook And Baker Relationship Specialty Start Date End Date Aditya Castro Update Information PCP - General 03/06/19 documented as of this encounter
--- OUTSIDE RECORDS SUMMARY | 2024-08-24 04:28 | XMS_ITS | Encounter Summary ---
Author Organization [facility] Address [address] [facility] [place] [address] Care Team Providers Care Maintenance Plumber Name Role Phone Aditya Castro Primary Care Provider Unavailab le Reason for Referral * Radiology Services (Routine) - Closed Specialty Diagnoses / Procedures Referred By Aguilar lora Referred To Contact Diagnoses Pre-transplant evaluation for kidney transplant Procedures VAS ARTERIAL ANKLE ARM INDEX Glenny Martin MD [address] [place] [address] [facility] Kidney Transplant [address] [place] [phone] Referral ID Status Reason Start Date Expiration Date Visits Re quested Visits Authorized [id number] Closed 05/14/2020 08/13/2020 1 1 * Radiology Services (Routine) - Closed Specialty Diagnoses / Procedures Referred By Aguilar lora Referred To Contact Diagnoses Pre-transplant evaluation for kidney transplant Procedures VAS BILATERAL VENOUS DUPLEX LE Glenny Martin MD [address] [place] [address] [facility] Kidney Transplant [address] [place] [phone] Referral ID Status Reason Start Date Expiration Date Visits Re quested Visits Authorized [id number] Closed 05/14/2020 08/13/2020 1 1 * Radiology Services (Routine) - Closed Specialty Diagnoses / Procedures Referred By Aguilar lora Referred To Contact Diagnoses Pre-transplant evaluation for kidney transplant Procedures CT ABDOMEN AND PELVIS NON IV CONTRAST Glenny Martin MD [address] [place] [address] [facility] Kidney Transplant [address] [place] [phone] Referral ID Status Reason Start Date Expiration Date Visits Re quested Visits Authorized [id number] Closed 05/14/2020 08/13/2020 1 1 * Radiology Services (Routine) - Closed Specialty Diagnoses / Procedures Referred By Aguilar lora Referred To Contact Diagnoses Pre-transplant evaluation for kidney transplant Procedures ECHO STRESS TEST W DOBUTAMINE Glenny Martin MD [address] [place] [address] [facility] Kidney Transplant [address] [place] [phone] Referral ID Status Reason Start Date Expiration Date Visits Re quested Visits Authorized [id number] Closed 05/14/2020 08/13/2020 1 1 Reason for Visit * Reason Comments Kidney Transplant Evaluation health hist ory Encounter Details Date Type Department Care Team (Late st Contact Info) Description 03/20/2020 Telephone [facility] TRANSPLANT [address] [place] [phone] Anali Merino RN Kidney Transplant Evaluation [...] of this encounter Progress Notes * Anali Mreino, RN - 03/20/2020 3:41 PM CDT HH obtained. Pt was unable to give 2 caregivers at time of call. Asked pt to talk with family and friends and be prepared to give name of second caregiver prior to starting testing. 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 In 2019 admitted to [facility] with chest pain and SOB. Pt believes [...] has a pump. 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 He states that he [...] for testing. Colonoscopy completed in 2019 at [facility]. Pt thinks the recommendation was a 5 year followup. Will request records. 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 Reviewed process and test needed. Let [...] Note Carrington Purvis MD - 05/18/2020 Glenny Maritn MD VASCULAR LAB OR DERABLES * VAS [...] annulus calcifications. Dictated by Ash Moreira MD (nursing resident). I, Dr. HANNAH SPENCE have personally reviewed [...] annulus calcifications. Dictated by Ash Moreira MD (nursing resident). I, Dr. HANNAH SPENCE have personally reviewed [...] % PRA 4 05/29/2020 7:59 AM CDT [facility] (Open CS) Class 1 LUM Specificity - 05/29/2020 7:59 AM CDT [facility] (Open CS) Class 1 LUM Test Date 0 05/29/2020 7:59 AM CDT [facility] (Open CS) Comment: This test was developed and its performance characteristics determined by the [facility]. ??It has not been cleared or [...] high complexity clinical laboratory testing. ??CLIA ID# [id number] Performed at: ??[facility], [address] @ [place], [place] ??[phone] Frame Stripper: Jarrod Chin MD, Blood BLOOD SPECIMEN / Unknown Lab Venipuncture / Unknown 05/14/2020 10:18 AM CDT 05/14/2020 10:52 AM CDT Glenny Martin MD LAB - BLOOD BAN K ORDERABLES [facility] ([facility]) [address] [place] [address], [facility] * HLA ANTIBODY SCREEN LUM CLASS 2 ID (05/14/2020 10:18 AM CDT) % PRA 90 05/29/2020 7:59 AM CDT [facility] ([facility]) Class 2 LUM Specificity - 05/29/2020 7:59 AM CDT [facility] ([facility]) Class 2 LUM Test Date 0 05/29/2020 7:59 AM CDT [facility] ([facility]) Comment: This test was developed and its performance characteristics determined by the [facility]. ??It has not been cleared or approved [...] high complexity clinical laboratory testing. ??CLIA ID# [id number] Performed at: ??[facility], [address] @ [place], [place] ??[phone] Frame Stripper: Jarrod Chin MD, Blood BLOOD SPECIMEN / Unknown Lab Venipuncture / Unknown 05/14/2020 10:18 AM CDT 05/14/2020 10:52 AM CDT Glenny Martin MD LAB - BLOOD BAN K ORDERABLES Performing Organization Address City/[facility]/ZIP Co de Phone Number [facility] ([facility]) [address] [place] [phone], [facility] * HIV-1 HIV-2 ANTIGEN/ANTIBODY (05/14/2020 10:18 AM CDT) HIV Antigen/Antibod y 1 & 2 Non-reacti ve Non-react bianca 05/14/2020 11:49 AM CDT [facility] Comment:Neither HIV-1 p24 An tigen nor HIV-1/HIV-2 Antibodies are detected. Blood BLOOD SPECIMEN / Unknown Lab Venipuncture / Unknown 05/14/2020 10:18 AM CDT 05/14/2020 10:57 AM CDT Glenny Martin MD LAB - HEMATOLOG Y ORDERABLES Performing Organization Address City/[facility]/ZIP Co de Phone Number [address] [address], [facility] [phone] * (ABNORMAL) HEPATITIS A ANTIBODY (05/14/2020 10:18 AM CDT) Hepatitis A Virus Antibody Total Positive( A) Negative 05/16/2020 11:02 AM CDT [employer] ([facility]) Comment: The positive anti-HAV is consistent with recent or remote Hepatitis A infection or antibody response to HAV vaccination. False positive anti-HAV can occur. Performed by [facility], [address] [place] [id number] [email or web address], Valerie Mast MD, Lab. Director Blood BLOOD SPECIMEN / Unknown Lab Venipuncture / Unknown 05/14/2020 10:18 AM CDT 05/14/2020 10:57 AM CDT Glenny Martin MD LAB - CHEMISTRY ORDERABLES Performing Organization Address City/[facility]/ZIP Co de Phone Number [email or web address] ([facility]) [address] * (ABNORMAL) PTH INTACT ([facility]) (05/14/2020 10:18 AM CDT) [facility] PTH Intact 653.3(H) 8.0 - 77.0 pg/mL 05/14/2020 11:34 AM CDT [facility] Blood BLOOD SPECIMEN / Unknown Lab Venipuncture / Unknown 05/14/2020 10:18 AM CDT 05/14/2020 10:55 AM CDT Glenny Martin MD LAB - CHEMISTRY ORDERABLES Performing Organization Address [facility]/ZIP Co de Phone Number [place] [phone] [place] [address], [facility] [phone] * TOXOPLASMA GONDII ANTIBODY IGG (05/14/2020 10:18 AM CDT) [facility] Toxoplasma Antibody IgG <3.0 IU/mL 05/16/2020 6:32 PM CDT [email or web address] ([facility]) Comment: INTERPRETIVE INFORMATION: Toxoplasma Ab, IgG [...] the amount of antibody present. Performed By: [facility] [address] [place] [address] [employer]ranium [employer] Supervisor: Valerie Mast MD Blood BLOOD SPECIMEN / Unknown Lab Venipuncture / Unknown 05/14/2020 10:18 AM CDT 05/14/2020 10:58 AM CDT Glenny Martin MD LAB - CHEMISTRY ORDERABLES [facility] ([facility]) [address] [place] [address], [facility] * STRONGYLOIDES ANTIBODY IGG (05/14/2020 10:18 AM CDT) Strongyloides Antibody IgG 0.2 <=0.9 IV 05/17/2020 10:58 PM CDT [facility] [employer] ([facility]) Comment: INTERPRETIVE INFORMATION: Strongyloides Ab, IgG [...] also result in false-positive results. Performed By: [email or web address] [address] [place] [address] Uranium Processing Supervisor: Valerie Mast MD Blood BLOOD SPECIMEN / Unknown Lab Venipuncture / Unknown 05/14/2020 10:18 AM CDT 05/14/2020 10:55 AM CDT Glenny Martin MD LAB - SEROLOGY ORDERABLES Performing Organization Address [facility] Co de Phone Number [facility] ([facility]) [address] [place], [place] [address] * PROSTATE SPECIFIC ANTIGEN SCREEN (05/14/2020 10:18 AM CDT) PSA Total 0.4 0.0 - 4.0 ng/mL 05/14/2020 11:59 AM CDT [facility] Blood BLOOD SPECIMEN / Unknown Lab Venipuncture / Unknown 05/14/2020 10:18 AM CDT 05/14/2020 10:55 AM CDT Glenny Martin MD LAB - CHEMISTRY ORDERABLES Performing Organization Address [facility]/ZIP Co de Phone Number [address] [address], [facility] [phone] * CANNABINOID SCREEN BLOOD (05/14/2020 10:18 AM CDT) Marijuana Metabolites Negative 05/17/2020 12:06 AM CDT [facility] ([facility]) Comment:REFERENCE RANGE: thr shold: 5 ng/mL Specimen Type Comment 05/17/2020 12:06 AM CDT [facility] ([facility]) Comment: WHOLE BLOOD This specimen was [...] 05/14/2020 10:53 AM CDT Narrative [facility] ([facility]) - 05/17/2020 12:06 AM CDT Performed at: ??01 - [employer] [address] [place] [address] ??[phone] Frame Stripper: Radha Callahan [facility], Phone: ??[phone] Glenny Martin MD LAB - CHEMISTRY ORDERABLES [facility] ([facility]) [address] [place] [address] * IRON BLOOD (05/14/2020 10:18 AM CDT) Iron 84 50 - 175 mcg/dL 05/14/2020 11:41 AM CDT [facility] Blood BLOOD SPECIMEN / Unknown Lab Venipuncture / Unknown 05/14/2020 10:18 AM CDT 05/14/2020 10:57 AM CDT Glenny Martin MD LAB - CHEMISTRY ORDERABLES Performing Organization Address [facility]/ZIP Co de Phone Number [address] [address], [place] [phone] * (ABNORMAL) FERRITIN (05/14/2020 10:18 AM CDT) Ferritin 502(H) 22 - 275 ng/mL 05/14/2020 11:47 AM CDT [facility] Blood BLOOD SPECIMEN / Unknown Lab Venipuncture / Unknown 05/14/2020 10:18 AM CDT 05/14/2020 10:55 AM CDT Glenny Martin MD LAB - CHEMISTRY ORDERABLES Performing Organization Address [facility]/ZIP Co de Phone Number [address] [address], [place] [phone] * TRANSFERRIN (05/14/2020 10:18 AM CDT) Transferrin 245 174 - 382 mg/dL 05/14/2020 11:41 AM CDT [facility] Transferrin Saturation % 27 16 - 50 % 05/14/2020 11:41 AM CDT [facility] Blood BLOOD SPECIMEN / Unknown Lab Venipuncture / Unknown 05/14/2020 10:18 AM CDT 05/14/2020 10:57 AM CDT Glenny Martin MD LAB - CHEMISTRY ORDERABLES Performing Organization Address City/[facility] Co de Phone Number [facility] [address] [place] [address], [facility] [phone] * (ABNORMAL) VITAMIN D 25-HYDROXY (05/14/2020 10:18 AM CDT) [facility] Vitamin D, 25 Hydroxy 23.0(L) See comment: ng/mL 05/14/2020 11:48 AM CDT [facility] Comment: The recommendations for 25-Hydroxy Vitamin [...] Glenny Martin MD LAB - CHEMISTRY ORDERABLES [facility] [address] [place] [address], [place] [phone] * (ABNORMAL) URIC ACID BLOOD (05/14/2020 10:18 AM CDT) Pathologist [facility] Uric Acid 8.4(H) 2.6 - 7.2 mg/dL 05/14/2020 11:41 AM CDT [facility] Blood BLOOD SPECIMEN / Unknown Lab Venipuncture / Unknown 05/14/2020 10:18 AM CDT 05/14/2020 10:55 AM CDT Glenny Martin MD LAB - CHEMISTRY ORDERABLES Performing Organization Address [facility]/ZIP Co de Phone Number [facility] [address] [place] [address], [place] [phone] * HLA TYPING DNA LOW RESOLUTION DR,DQ (05/14/2020 10:18 AM CDT) Pathologist [facility] DR DQ Low Resolution DRB1-1 04 05/29/2020 7:59 AM CDT [facility] ([facility]) DR DQ Low Resolution DRB1-2 11 05/29/2020 7:59 AM CDT [facility] ([facility]) DR DQ Low Resolution DQB1-1 03 (DQ7) 05/29/2020 7:59 AM CDT [facility] ([facility]) DR DQ Low Resolution DQB1-2 03 (DQ8) 05/29/2020 7:59 AM CDT [facility] ([facility]) DR DQ Low Resolution DRB3-1 02 05/29/2020 7:59 AM CDT [facility] ([facility]) DR DQ Low Resolution DRB3-2 Negative 05/29/2020 7:59 AM CDT [facility] ([facility]) DR DQ Low Resolution DRB4-1 01 05/29/2020 7:59 AM CDT [facility] ([facility]) DR DQ Low Resolution DRB4-2 Negative 05/29/2020 7:59 AM CDT [facility] ([facility]) DR DQ Low Resolution DRB5-1 Negative 05/29/2020 7:59 AM CDT [facility] ([facility]) DR DQ Low Resolution DRB5-2 Negative 05/29/2020 7:59 AM CDT [facility] ([facility]) DR DQ Low Resolution Methodology SSOP 05/29/2020 7:59 AM CDT [facility] ([facility]) Comment DR DQ Low Resolution - 05/29/2020 7:59 AM CDT [facility] ([facility]) DR DQ Low Resolution test date 05/28/2020 05/29/2020 7:59 AM CDT [facility] ([facility]) Comment: This test was developed and its performance characteristics determined by the [facility]. ??It has not been cleared [...] high complexity clinical laboratory testing. ??CLIA ID# [id number] Performed at: ??[facility], [address] @ [place], [place] ??[phone] Frame Stripper: Jarrod Chin MD, Blood BLOOD SPECIMEN / Unknown Lab Venipuncture / Unknown 05/14/2020 10:18 AM CDT 05/14/2020 10:52 AM CDT Glenny Martin MD LAB - BLOOD BAN K ORDERABLES [facility] ([facility]) [address] [place] [address], [facility] * HLA TYPING DNA LOW RESOLUTION A,B,C (05/14/2020 10:18 AM CDT) ABC DNA A1 03 05/29/2020 7:59 AM CDT [facility] ([facility]) ABC DNA A2 29 05/29/2020 7:59 AM CDT [facility] ([facility]) ABC DNA B1 07 05/29/2020 7:59 AM CDT [facility] ([facility]) ABC DNA B2 44 05/29/2020 7:59 AM CDT [facility] ([facility]) ABC DNA BW1 6 05/29/2020 7:59 AM CDT [facility] ([facility]) ABC DNA BW2 4 05/29/2020 7:59 AM CDT [facility] ([facility]) ABC DNA C1 07 05/29/2020 7:59 AM CDT [facility] ([facility]) ABC DNA C2 - 05/29/2020 7:59 AM CDT [facility] ([facility]) ABC DNA Methodology SSOP 05/29 7:59 AM CDT [facility] ([facility]) Comment ABC DNA - 0 7:59 AM CDT [facility] ([facility]) ABC DNA Test Date 0 05/29/2020 7:59 AM CDT [facility] ([facility]) Comment: This test was developed and its performance characteristics determined by the [facility]. ??It has not been cleared [...] high complexity clinical laboratory testing. ??CLIA ID# [id number] Performed at: ??[facility], [address] @ [place], [place] ??[phone] Frame Stripper: Jarrod Chin MD, Blood BLOOD SPECIMEN / Unknown Lab Venipuncture / Unknown 05/14/2020 10:18 AM CDT 05/14/2020 10:52 AM CDT Glenny Martin MD LAB - BLOOD BAN K ORDERABLES [facility] ([facility]) [address] [place] [address], [facility] * VARICELLA ZOSTER ANTIBODY IGG (05/14/2020 10:18 AM CDT) Varicella zoster Virus Antibody IgG 3705.0 IV 05/16/2020 2:46 PM CDT [email or web address] ([facility]) Comment: INTERPRETIVE INFORMATION: VZV Ab, IgG [...] laboratory at the same time. Performed By: [facility] [address] [place] [address] [employer]ranium [employer] Supervisor: Valerie Mast MD Blood BLOOD SPECIMEN / Unknown Lab Venipuncture / Unknown 05/14/2020 10:18 AM CDT 05/14/2020 10:57 AM CDT Glenny Martin MD LAB - CHEMISTRY ORDERABLES [facility] [employer] [facility]) [address] [place] [address], [facility] * MUMPS ANTIBODY IGG (05/14/2020 10:18 AM CDT) Mumps Virus Antibody IgG 17.2 AU/mL 05/16/2020 6:30 PM CDT [facility] [employer] ([facility]) Comment: INTERPRETIVE INFORMATION: Mumps Ab, IgG [...] laboratory at the same time. Performed By: [facility] [address] [place] [address] Uranium Processing Supervisor: Valerie Mast MD Blood BLOOD SPECIMEN / Unknown Lab Venipuncture / Unknown 05/14/2020 10:18 AM CDT 05/14/2020 10:57 AM CDT Glenny Martin MD LAB - CHEMISTRY ORDERABLES Performing Organization Address City/State/[facility] Co de Phone Number [employer] ([facility]) [address] [place] [address], [facility] * RUBEOLA ANTIBODY IGG (05/14/2020 10:18 AM CDT) Measles (Rubeola) Antibody IgG >300.0 AU/mL 05/16/2020 2:46 PM CDT [employer] ([facility]) Comment: INTERPRETIVE INFORMATION: Measles ([place]ubeola) Antibody, [...] laboratory at the same time. Performed By: [facility] [address] [place] [address] Uranium Processing Supervisor: Valerie Mast MD Blood BLOOD SPECIMEN / Unknown Lab Venipuncture / Unknown 05/14/2020 10:18 AM CDT 05/14/2020 10:57 AM CDT Glenny Martin MD LAB - CHEMISTRY ORDERABLES [facility] [employer] ([facility]) [address] [place] [address], [facility] * OPIATES BLOOD (05/14/2020 10:18 AM CDT) [facility] Opiates Screen Negative 05/17/2020 12:06 AM CDT [facility] ([facility]) Comment:REFERENCE RANGE: thr shold: 10 ng/mL Oxycodone Screen Negative 05/17/20 12:06 AM CDT [facility] ([facility]) Comment:REFERENCE RANGE: thr shold: 10 ng/mL Specimen Type Comment 05/17/2020 12:06 AM CDT [facility] ([facility]) Comment: WHOLE BLOOD This specimen was screened by immunoassay at the thresholds listed above. Presumptive positive results have not been confirmed by an alternate method; results are intended for clinical medical purposes. Please contact the laboratory if confirmatory testing is desired. This test was developed and its performance characteristics determined by [employer]. It has not been cleared or approved by the Food and Drug Administration. Blood BLOOD SPECIMEN / Unknown Lab Venipuncture / Unknown 05/14/2020 10:18 AM CDT 05/14/2020 10:53 AM CDT Narrative [facility] ([facility]) - 05/17/2020 12:06 AM CDT Performed at: ??01 - [employer] [address] ??[phone] Frame Stripper: Radha Callahan [facility], Phone: ??[phone] Glenny Martin MD LAB - CHEMISTRY ORDERABLES Performing Organization Address [facility]/State/[facility] Co de Phone Number [facility] ([facility]) [address] [phone] * COCAINE METABOLITE QUANT (05/14/2020 10:18 AM CDT) [facility] Cocaine and Metabolite Blood <20 ng/mL 05/17/2020 11:07 PM CDT [employer] ([facility]) Comment: INTERPRETIVE INFORMATION: Cocaine Metabolite, ?Serum or Plasma, ?Quantitative Methodology: Quantitative Gas Chromatography- Mass Spectrometry Positive cutoff: 20 ng/mL ?? For medical purposes only; not valid for forensic use. The concentration value must be greater than or equal to the cutoff to be reported as positive. Interpretive questions should be directed to the laboratory. Test developed and characteristics determined by [employer]. See Compliance Statement B: [employer]/ Performed By: [facility] [address] [place] [id number] [employer] Supervisor: Valerie Mast MD Blood BLOOD SPECIMEN / Unknown Lab Venipuncture / Unknown 05/14/2020 10:18 AM CDT 05/14/2020 10:55 AM CDT Glenny Martin MD LAB - CHEMISTRY ORDERABLES [email or web address] [facility]) [address] [place] [address], [facility] * AMPHETAMINE BLOOD CONFIRMATION (05/14/2020 10:18 AM CDT) Amphetamines Confirmation <20 ng/mL 05/20/2020 12:29 PM CDT [email or web address] ([facility]) Comment: INTERPRETIVE INFORMATION: Amphetamines, Serum or [...] laboratory. Test developed and characteristics determined by [employer]. See Compliance Statement B: [email or web address] Methamphetamine Confirmation <20 ng/mL 05/20/2020 12:29 PM CDT [facility] ([facility]) MDA Confirmation <20 ng/mL 05/20/20 20 12:29 PM CDT [facility]) MDMA Confirm <20 ng/mL 05/20/2020 12:29 PM CDT [facility] [employer]) MDEA Confirmation <20 ng/mL 020 12:29 PM CDT [facility]) Comment: Performed By: [facility] [address] [place] [address] Uranium Processing Supervisor: Valerie Mast MD Blood BLOOD SPECIMEN / Unknown Lab Venipuncture / Unknown 05/14/2020 10:18 AM CDT 05/14/2020 10:57 AM CDT Glenny Martin MD LAB - CHEMISTRY ORDERABLES [email or web address] [facility]) [address] [place] [address], [facility] * NICOTINE + METABOLITES BLOOD (05/14/2020 10:18 AM CDT) Nicotine <2 ng/mL 05/18/2020 10:08 PM CDT [email or web address] ([facility]) Comment: Consistent with abstinence from nicotine-containing [...] ?? Test developed and characteristics determined by [facility]. See Compliance Statement B: [email or web address]/CS Performed By: [facility] [address] [place] [id number] Uranium Processing Supervisor: Valerie Mast MD 3-Hydroxy Cotinine <2 ng/mL 2019 10:08 PM CDT [employer] [facility]) Cotinine <2 ng/mL 05/18/2020 10:08 PM CDT [email or web address] [facility]) Blood BLOOD SPECIMEN / Unknown Lab Venipuncture / Unknown 05/14/2020 10:18 AM CDT 05/14/2020 10:57 AM CDT Glenny Martin MD LAB - CHEMISTRY ORDERABLES [facility] ([facility]) [address] [place] [address], [facility] * ALCOHOL ETHYL BLOOD (05/14/2020 10:18 AM CDT) Pathologist [facility] Interpretation Ethanol None Detected None Detected mg/dL 05/14/2020 11:41 AM CDT [facility] Comment:Ethanol levels less than 10 mg/dL are resulted as None detected . Blood BLOOD SPECIMEN / Unknown Lab Venipuncture / Unknown 05/14/2020 10:18 AM CDT 05/14/2020 10:55 AM CDT Glenny Martin MD LAB - CHEMISTRY ORDERABLES Performing Organization Address [facility] Co de Phone Number [facility] [address] [place] [address], [facility] [phone] * SYPHILIS ANTIBODY CASCADING REFLEX (05/14/2020 10:18 AM CDT) [facility] Treponema pallidum Antibody Non-react bianca Non-react bianca 05/14/2020 11:47 AM CDT [facility] Comment: No Laboratory evidence of syphilis infection. ?? Note: ??Circulating antibodies may be low or undetectable in early infection. ??If recent exposure is suspected, re-draw sample in 2-4 weeks and repeat testing. Blood BLOOD SPECIMEN / Unknown Lab Venipuncture / Unknown 05/14/2020 10:18 AM CDT 05/14/2020 10:55 AM CDT Glenny Martin MD LAB - SEROLOGY ORDERABLES Performing Organization Address [facility]/ZIP Co de Phone Number [facility] [address] [place] [phone], [place] [phone] * (ABNORMAL) HEMOGLOBIN A1C (05/14/2020 10:18 AM CDT) [facility] Hemoglobin A1c 7.7(H) 4.4 - 6.3 % 05/14/2020 3:37 PM CDT [facility] Estimated Average Glucose 174 mg/dL 05/14/2020 3:37 PM CDT [facility] Comment: HbA1c Interpretation: Treatment target values recommended by ADA and other clinical organizations should be used to evaluate metabolic control in patients. Treatment Target Values: Normal : < 5.7% Pre-diabetes: 5.7-6.4% Diabetes: Equal to or greater than 6.5% Reference: [place] [employer] Standards of Care in Diabetes -2014 In patients 70 years and older consider HbA1c target range of 7.0-7.5% Reference: ??Diabetes Mellitus in Older People: Position Statement on behalf of the International Association of Gerontology and Geriatrics (IAGG), the Diabetes Working Republican for Older People (EDWPOP), and the International Task Force of Experts in Diabetes. ??Hermelindo Remy, et al. J [employer]. 2012 Test results diagnostic of diabetes should be repeated for confirmation. The Sebia Capillary 2 assay for the measurement of HbA1c is a National Glycohemoglobin Standardization Program (NGSP)certified method. Blood BLOOD SPECIMEN / Unknown Lab Venipuncture / Unknown 05/14/2020 10:18 AM CDT 05/14/2020 10:55 AM CDT Glenny Martin MD LAB - CHEMISTRY ORDERABLES Performing Organization Address City/State/[facility] Co de Phone Number [facility] [address] [address], [facility] [phone] * (ABNORMAL) MADIHA-MORRIS VIRUS ANTIBODY TO VCA IGG (05/14/2020 10:18 AM CDT) [facility] Madiha-Morris Virus Antibody IgG Viral Capsid Antigen 115.0(H) 0.0 - 21.9 U/mL 05/16/2020 5:10 PM CDT [facility] [employer] ([facility]) Comment: INTERPRETIVE INFORMATION: Madiha-Morris Virus Antibody to ?Viral Capsid Antigen, IgG ??17.9 U/mL or less.......Not Detected ??18.0-21.9 U/mL..........Indeterminate - Repeat testing in ?10-14 days may be helpful. ??22.0 U/mL or greater....Detected Performed By: [facility] [address] [place] [address] Uranium Processing Supervisor: Valerie Mast MD Blood BLOOD SPECIMEN / Unknown Lab Venipuncture / Unknown 05/14/2020 10:18 AM CDT 05/14/2020 10:55 AM CDT Glenny Martin MD LAB - CHEMISTRY ORDERABLES [email or web address] [facility]) [address] [place] [address], [facility] * CYTOMEGALOVIRUS ANTIBODY IGG BLOOD (05/14/2020 10:18 AM CDT) Cytomegalovirus Antibody IgG >10.00 U/mL 05/16/2020 6:28 PM CDT [facility] [employer] ([facility]) Comment: INTERPRETIVE INFORMATION: Cytomegalovirus Antibody, IgG [...] laboratory at the same time. Performed By: [facility] [address] [place] [address] Uranium Processing Supervisor: Valerie Mast MD Blood BLOOD SPECIMEN / Unknown Lab Venipuncture / Unknown 05/14/2020 10:18 AM CDT 05/14/2020 10:55 AM CDT Glenny Martin MD LAB - CHEMISTRY ORDERABLES [facility] ([facility]) [address] * HEPATITIS C ANTIBODY (05/14/2020 10:18 AM CDT) Hepatitis C Antibody Non-react bianca Non-reac tive 05/14/2020 11:49 AM CDT [facility] Comment:Hepatitis C Antibody screen indicates no [...] - CHEMISTRY ORDERABLES Performing Organization Address City/[facility]/ZIP Co de Phone Number [facility] [address] [place] [phone] [phone] * (ABNORMAL) HEPATITIS B SURFACE ANTIBODY (05/14/2020 10:18 AM CDT) Hepatitis B Virus Surface Antibody Reactive( A) Non-react bianca 05/14/2020 11:47 AM CDT [facility] Comment: > 12 mIU/mL Hepatitis B surface Antibody (HBsAb). Reactive for HBsAb - individual is considered immune to Hepatitis B Virus infection. Hepatitis B Surface Antibody Quantitative 72.7(H) <8.0 mIU/mL 05/14/2020 11:47 AM CDT [facility] Comment: Hepatitis B Surface Antibody Numeric Result Interpretation: ? Nonreactive: ?<8.0 mIU/mL ? Indeterminate: ??8.0 - 12.0 mIU/mL ? Reactive: ?>12.0 mIU/mL ? Blood BLOOD SPECIMEN / Unknown Lab Venipuncture / Unknown 05/14/2020 10:18 AM CDT 05/14/2020 10:55 AM CDT Glenny Martin MD LAB - CHEMISTRY ORDERABLES Performing Organization Address City/[facility]/ZIP Co de Phone Number [address] [address], [place] [phone] * HEPATITIS B CORE ANTIBODY (05/14/2020 10:18 AM CDT) HBc Antibody Total Non-reacti ve Non-reacti ve 05/14/2020 11:47 AM CDT [facility] Blood BLOOD SPECIMEN / Unknown Lab Venipuncture / Unknown 05/14/2020 10:18 AM CDT 05/14/2020 10:55 AM CDT Glenny Martin MD LAB - CHEMISTRY ORDERABLES Performing Organization Address [facility] Co de Phone Number [address] [address], [place] [phone] * HEPATITIS B SURFACE ANTIGEN W RFLX CONFIRMATION (05/14/2020 10:18 AM CDT) Hepatitis B Virus Surface Antigen Non-reacti ve Non-reacti ve 05/14/2020 11:47 AM CDT [facility] Blood BLOOD SPECIMEN / Unknown Lab Venipuncture / Unknown 05/14/2020 10:18 AM CDT 05/14/2020 10:55 AM CDT Glenny Martin MD LAB - CHEMISTRY ORDERABLES Performing Organization Address [facility] Co de Phone Number [address] [address], [place] [phone] * (ABNORMAL) LIPID PROFILE (05/14/2020 10:18 AM CDT) [facility] Cholesterol Total 137 <200 mg/dL 05/14/2020 11:41 AM [facility] HDL 28(L) >40 mg/dL 05/14/2020 11:41 AM [facility] Comment: ATP III Classification of HDL Cholesterol: ? <40 mg/dL: ??Considered a major risk factor. ? >60 mg/dL: ??Considered a negative risk factor. ? LDL Calculated 70 <100 mg/dL 05/14/2020 11:41 AM [facility] Comment: ATP III Classification of LDL Cholesterol: ?<100 mg/dL: ??Optimal ? 100 - 129 mg/dL: ??Near Optimal/Above Optimal ? 130 - 159 mg/dL: ??Borderline High ? 160 - 189 mg/dL: ??High ?>190 mg/dL: ??Very High ? Triglycerides 196(H) <150 mg/dL 05/14/2020 11:41 AM [facility] Comment: ATP III Classification of Triglycerides: ?<150 mg/dL: ??Normal ? 150 - 199 mg/dL: ??Borderline High ? 200 - 400 mg/dL: ??High ?>500 mg/dL: ??Very High Blood BLOOD SPECIMEN / Unknown Lab Venipuncture / Unknown 05/14/2020 10:18 AM CDT 05/14/2020 10:55 AM CDT Glenny Martin MD LAB - CHEMISTRY ORDERABLES Performing Organization Address [facility]/State/ZIP Co de Phone Number [facility] [address] [place] [phone], [place] [phone] * (ABNORMAL) PHOSPHORUS BLOOD (05/14/2020 10:18 AM CDT) Phosphorus 5.1(H) 2.3 - 4.7 mg/dL 05/14/2020 11:41 AM [facility] Blood BLOOD SPECIMEN / Unknown Lab Venipuncture / Unknown 05/14/2020 10:18 AM CDT 05/14/2020 10:55 AM CDT Glenny Martin MD LAB - CHEMISTRY ORDERABLES Performing Organization Address City/State/[facility] Co de Phone Number [facility] [address] [place] [address], [facility] [phone] * (ABNORMAL) COMPREHENSIVE METABOLIC PANEL (05/14/2020 10:18 AM CDT) BUN 65(H) 7 - 26 mg/dL 05/14/2020 11:41 AM [facility] Creatinine 5.6(H) 0.6 - 1.2 mg/dL 05/14/2020 11:41 AM [facility] Sodium 142 136 - 145 mmol/L 05/14/2020 11:41 AM [facility] Potassium 3.7 3.5 - 4.5 mmol/L 05/14/2020 11:41 AM [facility] Chloride 101 98 - 107 mmol/L 05/14/2020 11:41 AM [facility] CO2 28 22 - 29 mmol/L 05/14/2020 11:41 AM [facility] Glucose 162(H) 70 - 115 mg/dL 05/14/2020 11:41 AM [facility] Calcium 9.0 8.4 - 10.2 mg/dL 05/14/2020 11:41 AM [facility] Protein Total 6.9 6.0 - 8.3 g/dL 05/14/2020 11:41 AM [facility] Albumin 3.7 3.4 - 5.0 g/dL 05/14/2020 11:41 AM [facility] Bilirubin Total 0.7 0.2 - 1.2 mg/dL 05/14/2020 11:41 AM [facility] Alkaline Phosphatase 140 40 - 150 Units/L 05/14/2020 11:41 AM [facility] ALT 43 0 - 55 Units/L 05/14/2020 11:41 AM [facility] AST 29 5 - 34 Units/L 05/14/2020 11:41 AM [facility] Anion Gap 17 8 - 18 05/14/2020 11:41 AM [facility] BUN/Creatinine Ratio 12 7 - 23 05/14/2020 11:41 AM [facility] Osmolality Calculated 316(H) 270 - 300 mOsm/kg 05/14/2020 11:41 AM [facility] Albumin/Globulin Ratio 1.2 1.1 - 2.3 05/14/2020 11:41 AM [facility] eGFR 11(L) >60 mL/min/1.7 3 m2 05/14/2020 11:41 AM [facility] Blood BLOOD SPECIMEN / Unknown Lab Venipuncture / Unknown 05/14/2020 10:18 AM CDT 05/14/2020 10:55 AM T Glenny Martin MD LAB - CHEMISTRY ORDERABLES [facility] [address] [place] [address], [facility] [phone] * (ABNORMAL) CBC W AUTO DIFFERENTIAL (05/14/2020 10:18 AM T) WBC 5.0 3.5 - 10.5 10? 3 /uL 05/14/2020 11:03 AM [facility] RBC 3.45(L) 4.30 - 5.70 10? 6 /uL 05/14/2020 11:03 AM [facility] Hemoglobin 10.7(L) 13.5 - 17.5 g/dL 05/14/2020 11:03 AM [facility] Hematocrit 31.1(L) 39.0 - 50.0 % 05/14/2020 11:03 AM [facility] MCV 90.1 81.0 - 97.0 fL 05/14/2020 11:03 AM [facility] MCH 31.0 28.0 - 34.0 pg 05/14/2020 11:03 AM [facility] MCHC 34.4 32.0 - 36.0 g/dL 05/14/2020 11:03 AM [facility] Platelet Count 232 150 - 400 10? 3 /uL 05/14/2020 11:03 AM [facility] RDW-SD 42.4 36.0 - 50.0 fL 05/14/2020 11:03 AM [facility] RDW-CV 12.9 11.2 - 14.8 % 05/14/2020 11:03 AM [facility] MPV 9.8 9.3 - 12.8 fL 05/14/2020 11:03 AM [facility] nRBC Absolute 0.00 0 10? 3 /uL 05/14/2020 11:03 AM [facility] nRBC Auto 0.0 0 /100 WBC 05/14/2020 11:03 AM [facility] Neutrophils % 54.8 35.0 - 70.0 % 05/14/2020 11:03 AM [facility] Lymphocytes % 31.2 19.7 - 55.1 % 05/14/2020 11:03 AM [facility] Monocytes % 9.4 3.0 - 15.0 % 05/14/2020 11:03 AM [facility] Eosinophils % 3.8 0.0 - 6.0 % 05/14/2020 11:03 AM [facility] Basophil % 0.6 0.0 - 1.5 % 05/14/2020 11:03 AM [facility] Neutrophils Absolute 2.7 1.6 - 7.0 10? 3 /uL 05/14/2020 11:03 AM [facility] Lymphocyte Absolute 1.6 0.8 - 2.9 10? 3 /uL 05/14/2020 11:03 AM [facility] Monocytes Absolute 0.47 0.14 - 0.66 10? 3 /uL 05/14/2020 11:03 AM [facility] Eosinophils Absolute 0.19 0.00 - 0.45 10? 3 /uL 05/14/2020 11:03 AM [facility] Basophils Absolute 0.03 0.00 - 0.06 10? 3 /uL 05/14/2020 11:03 AM [facility] Immature Granulocytes % 0.2 0.0 - 1.0 % 05/14/2020 11:03 AM CDT [facility] Blood BLOOD SPECIMEN / Unknown Lab Venipuncture / Unknown 05/14/2020 10:18 AM CDT 05/14/2020 10:55 AM CDT Glenny Martin MD LAB - HEMATOLOG Y ORDERABLES [facility] [address] [place] [address], [place] [phone] * BLOOD TYPE ABO+ RH PANEL (05/14/2020 10:18 AM CDT) ABO Rh A POS 05/14/2020 12:11 PM CDT [facility] B[facility]OD BANK LAB Blood BLOOD SPECIMEN / Unknown Lab Venipuncture / Unknown 05/14/2020 10:18 AM CDT 05/14/2020 11:29 AM CDT Glenny Martin MD LAB - BLOOD BAN K ORDERABLES Performing Organization Address City/[facility]/ZIP Co de Phone Number [facility] B[facility]OD [facility]ANK LAB [address] [place] [address], [place] [phone] * TYPE + SCREEN PANEL (05/14/2020 10:06 AM CDT) Antibody Screen NEG 0 12:17 PM CDT [facility] B[facility] LAB ABO Rh A POS 05/14/2020 12:17 PM CDT [facility] B[facility]OD [facility]ANK LAB Blood Bank BLOOD SPECIMEN / Unknown Lab Venipuncture / Unknown 05/14/2020 10:06 AM CDT 05/14/2020 11:30 AM CDT Glenny Martin MD LAB - BLOOD BAN K ORDERABLES Performing Organization Address City/[facility]/ZIP Co de Phone Number [facility] LAB [address] [place] [address], [place] [phone] * XR PANOREX (05/14/2020 7:35 AM CDT) Anatomical Region Laterality Modality Head Radiographic Toma ging 05/14/2020 7:56 AM CDT Impressions 05/15/2020 7:51 AM CDT IMPRESSION: No periapical abscess identified. Dictated by Kristie Bee MD (nursing resident). Dr. CONRAD Champion MD have personally reviewed [...] abscess identified. Dictated by Kristie Bee MD (nursing resident). Dr. CONRAD Champion MD have personally reviewed [...] is normal. Dictated by Kristie Bee MD (nursing resident). Dr. CONRAD Champion MD have personally reviewed [...] is normal. Dictated by Kristie Bee MD (nursing resident). I, Dr. CONRAD GONZALES MD have personally [...] transplant documented in this encounter Care Teams Maintenance Plumber Relationship Specialty Start Date End Date Aditya Castro Update Information PCP - General 03/06/19 documented as of this encounter
--- OUTSIDE RECORDS SUMMARY | 2024-08-24 04:28 | XMS_ITS | Encounter Summary ---
Author Organization [facility] Address [address] [address] Care Team Providers Care Textile Designs Sales Representative Name Role Phone Aditya Castro Primary Care Provider Unavailab le Reason for Visit * Radiology Services (Routine) - Closed Specialty Diagnoses / Procedures Referred By Aguilar lora Referred To Contact Diagnoses Pre-transplant evaluation for kidney transplant Procedures VAS ARTERIAL ANKLE ARM INDEX Glenny Martin MD [address] [place] [address] [facility] Kidney Transplant [address] [place] [address] Referral ID Status Reason Start Date Expiration Date Visits Re quested Visits Authorized [id number] Closed 05/14/2020 08/13/2020 1 1 Encounter Details Date Type Department Care Team (Late st Contact Info) Description 05/14/2020 10:40 AM CDT Hospital Encounter [facility] VASCULAR US [address] [place] [phone] Glenny Martin MD [address] [facility] [place] [address] Discharge Disposition: Home or Self Care Social [...] 12 hours as needed 01/25/2019 epoetin (PROCRIT) 27169 UNIT/ML injection Inject subcutaneously every 14 days ezetimibe (ZETIA) 10 MG tablet Take 10 mg by mouth once daily febuxostat (ULORIC) 40 MG tablet Take 40 mg by mouth 02/25/2019 ferrous sulfate EC (FERROUS SULFATE) 324 (65 Fe) MG tablet Take 324 mg by mouth once daily 02/21/2019 fluticasone propionate (FLONASE) 50 MCG/ACT nasal spray [place] 1 spray into each nostril once daily [...] test strip 04/17/2019 vitamin D, ergocalciferol, (DRISDOL) 47872 units capsule Take 50,000 Units by mouth [...] transplant documented in this encounter Care Teams Textile Designs Sales Representative Relationship Specialty Start Date End Date Aditya Castro Update Information PCP - General 03/06/19 documented as of this encounter
--- OUTSIDE RECORDS SUMMARY | 2024-08-24 04:28 | XMS_ITS | Encounter Summary ---
Author Organization [facility] Address [address] [facility] [place] [address] Care Team Providers Care Marine Erector Name Role Phone Aditya Castro Primary Care Provider Unavailab le Reason for Visit * Reason Comments Kidney Transplant Evaluation Encounter Details Date Type Department Care Team (Late st Contact Info) Description 04/06/2020 Telephone [facility] TRANSPLANT [address] [place] [phone] Gracie Chambers, RN Kidney Transplant Evaluation [...] filedocumented in this encounter Care Teams Marine Erector Relationship Specialty Start Date End Date Aditya Castro Update Information PCP - General 03/06/19 documented as of this encounter
--- OUTSIDE RECORDS SUMMARY | 2024-08-24 04:28 | XMS_ITS | Encounter Summary ---
Author Organization [facility] Address [address] [place] [address] Care Team Providers Care Physician Assistant Psychiatry Name Role Phone Aditya Castro Primary Care Provider Unavailab le Reason for Visit * Reason Comments Refill Request Encounter Details Date Type Department Care Team (Late st Contact Info) Description 07/19/2020 Refill [facility] [address] [place] [address] Girish Vasques MD [address] [facility] [address] [place] [address] Refill Request Social History Tobacco Use Types [...] dermatitis documented in this encounter Care Teams Physician Assistant Psychiatry Relationship Specialty Start Date End Date Aditya Castro Update Information PCP - General 03/06/19 documented as of this encounter
--- OUTSIDE RECORDS SUMMARY | 2024-08-24 04:28 | XMS_ITS | Encounter Summary ---
Author Organization [facility] Address [address] [facility] [place] [address] Care Team Providers Care Technology Auditor Name Role Phone Aditya Castro Primary Care Provider Unavailab le Reason for Visit * Reason Comments Kidney Transplant Evaluation Encounter Details Date Type Department Care Team (Late st Contact Info) Description 02/17/2020 Telephone [facility] TRANSPLANT [address] [place] [address] rGacie Chambers, RN Kidney Transplant Evaluation Social History [...] an echo some time in 2019 at [facility]. Will request before proceeding with referral. 03/02/20 update: Have called several times for updated echo but there does not appear to be one. Will open referral. documented in this encounter Plan of Treatment Not on file documented as of this encounter Visit Diagnoses Not on filedocumented in this encounter Care Teams Technology Auditor Relationship Specialty Start Date End Date Aditya Castro Update Information PCP - General 03/06/19 documented as of this encounter
--- OUTSIDE RECORDS SUMMARY | 2024-08-24 04:28 | XMS_ITS | Encounter Summary ---
Author Organization [facility] Address [address] [place] [address] Care Team Providers Care Mold Release Worker Name Role Phone Aditya Castro Primary Care Provider Unavailab le Reason for Visit * Reason Comments Kidney Transplant Evaluation Encounter Details Date Type Department Care Team (Latest Contact Info) Description 07/13/2020 2:00 PM PROPERTY CARETAKER Office Visit [facility] [address] [place] [phone] Pre-transplant evaluation for kidney transplant (Primary Dx); Hypertensive chronic kidney disease with stage 5 chronic kidney disease or end stage renal disease (HCC); Type 2 diabetes mellitus with chronic kidney disease on chronic dialysis, unspecified whether intermediate accountant insulin use (HCC); End stage renal disease (HCC); Type 2 diabetes mellitus with diabetic chronic kidney disease, unspecified CKD stage, unspecified whether intermediate accountant insulin use (HCC); Hyperlipidemia, unspecified hyperlipidemia type; [...] Comments Blood Pressure 140/60 07/13/2020 1:30 PM PROPERTY CARETAKER Pulse 65 07/13/2020 1:30 PM PROPERTY CARETAKER Temperature 36.1 ??C (97 ??F) 07/13/2020 1:30 PM PROPERTY CARETAKER Respiratory Rate 20 07/13/2020 1:30 PM PROPERTY CARETAKER Oxygen Saturation 95% 07/13/2020 1:30 PM PROPERTY CARETAKER Inhaled Oxygen Concentration - - Weight 134.3 kg (296 lb) 07/13/2020 1:30 PM PROPERTY CARETAKER Height 176.5 cm (5' 9.5 ) 07/13/2020 1:30 PM PROPERTY CARETAKER Body Mass Index 43.08 07/13/2020 1:30 PM PROPERTY CARETAKER documented in this encounter Progress Notes * [...] risk, High KDPI, and Hep C kidneys. ERTY CARETAKER * Maritza Hills MD - 07/13/2020 1:39 PM CST Images from the original note were not included. New Kidney Candidate Evaluation Note Juvenal Daigle 1970 [id number] Clinic Visit Date:07/13/2020 Referring MD: Leandro Hagen MD Chief Complaint: ESRD 2/2 T1DM Introductory: is a 49 year old with type 1 diabetes (diagnosed at age 13) as a primary cause of kidney disease. His extensive PMH is notable for obesity, CHF, CAH, TN s/p 4 stents to RCA,gout, HTN, HLD, BEN. His pertinent surgical history includes appendectomy, lap [...] 12 hours as needed ??? epoetin (PROCRIT) 55788 UNIT/ML injection Inject subcutaneously every 14 days ??? ezetimibe (ZETIA) 10 MG tablet Take 10 mg by mouth once daily ??? febuxostat (ULORIC) 40 MG tablet Take 40 mg by mouth ??? ferrous sulfate EC (FERROUS SULFATE) 324 (65 Fe) MG tablet Take 324 mg by mouth once daily ??? fluticasone propionate (FLONASE) 50 MCG/ACT nasal spray [place] 1 spray into each nostril once daily [...] test strip ??? vitamin D, ergocalciferol, (DRISDOL) 90655 units capsule Take 50,000 Units by mouth [...] artery disease) ??? Community acquired pneumonia 2017 [facility] hospitalized with double pneumonia ??? Congestive heart failure ??? Coronary artery disease ??? Diabetes mellitus type 1 teens dx when he was 13. Insulin since he was dx. Insulin pump currently with dexacom. Vashti Vo cell preparer. ??? DM (diabetes mellitus) TYPE 1 ??? DVT (deep venous thrombosis) 2017 [facility]. ??? ESRD on peritoneal dialysis ??? Gout ??? History of blood transfusion 2017 during admission for TN ??? HLD (hyperlipidemia) ??? HTN (hypertension) ??? Hypercholesteremia 5 years on med ??? Hypertension 30's on medications. ??? Kidney disease ??? Myocardial infarction 2017 [facility]. Stent x1 placed. ??? Neuropathy feet [...] results for input(s): MAGNESIUM in the last 96484 hours. Recent Labs Component Name 05/14/20 1018 PHOS 5.1* No results for input(s): TACROLIMUS, TACROCARDIO, TACROGASTRO, TACRONEPHRO in the last 83767 hours. Review of Imaging Reports [facility]: 08/26/2019 [...] procedures ?? Patient to follow up with [facility] weight loss clinic ?? Counseled regarding diet and exercise ?? Goal BMI: 35 (weight 241lbs) ?? Patient to follow up in txp clinic following weight loss ?? Patient will call with any questions or concerns in the interim Outstanding evaluation: -Patient education Maritza Hills MD 07/13/2020 3:41 PM ERTY CARETAKER Associated attestation - Glenny Martin MD - 07/14/2020 3:55 PM PROPERTY CARETAKER Supervising Physicians Attestation: I have personally seen [...] even after dietary advice - CAD/ CHF/ TN S/P x 4 stents, on PLAVIX - HTN - HLD - BEN - Last HgbA1c was 7.7. Questionable resting angina although recent cath revealed patent stents. A/P: At present not a candidate for renal transplant given his increasing weight and current BMI of43. - given information to contact the [facility] weight loss and surgery center. We will be contactingthe team to see how best he can be counseled and be followed up by them to determine if in the nursing home he may be a candidate (if he [...] how the patient can be seen at [facility]. Glenny Martin MD embroiderer hand documented in this encounter Plan of Treatment [...] kidney disease on chronic dialysis, unspecified whether mcfp insulin use (HCC) End stage renal disease (HCC) End stage renal disease Type 2 diabetes mellitus with diabetic chronic kidney disease, unspecified CKD stage, unspecified whether intermediate accountant insulin use (HCC) Hyperlipidemia, unspecified hyperlipidemia type Obstructive sleep apnea (adult) (pediatric) Obesity, unspecified classification, unspecified obesity type, unspecified whether serious comorbidity present documented in this encounter Care Teams Mold Release Worker Relationship Specialty Start Date End Date Aditya Castro Update Information PCP - General 03/06/19 documented as of this encounter
--- OUTSIDE RECORDS SUMMARY | 2024-08-24 04:28 | XMS_ITS | Encounter Summary ---
Author Organization [facility] Address [address] [facility] [place] [address] Care Team Providers Care Pharmaceutical Compounding Supervisor Name Role Phone Aditya Castro Primary Care Provider Unavailab le Encounter Details Date Type Department Care Team (Late st Contact Info) Description 07/13/2020 3:00 PM SITE IDENTIFICATION SPECIALIST Office Visit [facility]ph[facility] [place] [phone] Leandro Reyes MD [address] [facility] , [address] [place] [address] Pre-transplant evaluation for kidney transplant (Primary Dx); Hypertensive chronic kidney disease with stage 5 chronic kidney disease or end stage renal disease (HCC); Type 2 diabetes mellitus with diabetic chronic kidney disease, unspecified CKD stage, unspecified whether director long term care insulin use (HCC); End stage renal disease [...] not included. Transplant Nephrology Attending Juvenal Daigle [id number] 1970 Chief Complaint: Renal Transplant Evaluation Referring [...] to 500 but now he and his intervention nurse have better control of his blood sugars. His last Hgb a1c 7.7 He has had HTN since 2017 He has multiple stents in his RCA, which is a dominant artery.He presented with an NH and was foundto have RCA occlusion. A [...] on anticoagulation for 2 years until the permaculture contractor stopped it when he started plavix. Can [...] Priority: Not Prioritized Juvenal Daigle 1970 Referring Income Tax Investigator: Leandro Reyes Dialysis Info: Type: PD Time: 160 days (11/05/2019) Blood Type: A Body mass index is 37.8 kg/m??. ALERTS Lawn Sprinkler Installer: Vashti Lizama NP Past Medical History: Diagnosis Date ??? Anemia ??? Arthritis ??? Arthropathy osteo. back and knees see Dr. Norton ??? CAD (coronary artery disease) ??? Community acquired pneumonia 2017 [facility] hospitalized with double pneumonia ??? Congestive heart failure ??? Coronary artery disease ??? Diabetes mellitus type 1 teens dx when he was 13. Insulin since he was dx. Insulin pump currently with dexacom. Vashti Lizama NPis intervention nurse. ??? DM (diabetes mellitus) TYPE 1 ??? DVT (deep venous thrombosis) 2017 [facility] ??? ESRD on peritoneal dialysis ??? Gout ??? History of blood transfusion 2017 during admission for NH ??? HLD (hyperlipidemia) ??? HTN (hypertension) ??? Hypercholesteremia 5 years on med ??? Hypertension 30's on medications. ??? Kidney disease ??? Myocardial infarction 2017 [facility]. Stent x1 placed. ??? Neuropathy feet [...] file Gets together: Not on file Attends worship service: Not on file Active member of [...] 07/02/2020: Committee Discussion Details: Pt brought to [facility] to discuss his cardiac workup. [...] SW, education ??? 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[place] heart with stable angina pectoris 11/22/2018 Priority: Not Prioritized Past Medical History: Past Medical History: Diagnosis Date ??? Anemia ??? Arthritis ??? Arthropathy osteo. back and knees see Dr. Norton ??? CAD (coronary artery disease) ??? Community acquired pneumonia 2017 [facility] hospitalized with double pneumonia ??? Congestive heart failure ??? Coronary artery disease ??? Diabetes mellitus type 1 teens dx when he was 13. Insulin since he was dx. Insulin pump currently with dexacom. Vashti Vo intervention nurse. ??? DM (diabetes mellitus) TYPE 1 ??? DVT (deep venous thrombosis) 2017 [facility] ??? ESRD on peritoneal dialysis ??? Gout ??? History of blood transfusion 2017 during admission for NH ??? HLD (hyperlipidemia) ??? HTN (hypertension) ??? Hypercholesteremia 5 years on med ??? Hypertension 30's on medications. ??? Kidney disease ??? Myocardial infarction 2017 [facility]. Stent x1 placed. ??? Neuropathy feet [...] file Gets together: Not on file Attends worship service: Not on file Active member of [...] 12 hours as needed ??? epoetin (PROCRIT) 84605 UNIT/ML injection Inject subcutaneously every 14 days ??? ezetimibe (ZETIA) 10 MG tablet Take 10 mg by mouth once daily ??? febuxostat (ULORIC) 40 MG tablet Take 40 mg by mouth ??? ferrous sulfate EC (FERROUS SULFATE) 324 (65 Fe) MG tablet Take 324 mg by mouth once daily ??? fluticasone propionate (FLONASE) 50 MCG/ACT nasal spray [place] 1 spray into each nostril once daily [...] test strip ??? vitamin D, ergocalciferol, (DRISDOL) 33431 units capsule Take 50,000 Units by mouth [...] results for input(s): MAGNESIUM in the last 69255 hours. Recent Labs Component Name 05/14/20 1018 04/26/19 1242 WBC 5.0 4.9 RBC 3.45* 3.40* HGB 10.7* 10.0* HCT 31.1* 29.5* MCV 90.1 86.8 MCHC 34.4 33.9 PLTCOUNT 232 243 NEUTPCT 54.8 57.8 NEUTABS 2.7 2.8 Recent Labs Component Name 05/14/20 1018 PTHINTACT 653.3* No results for input(s): [id number] in the last 66062 hours. Recent Labs Component Name 05/14/20 1018 [...] addressed. Cassia Cano MD 07/13/2020 3:37 PM IDENTIFICATION SPECIALIST documented in this encounter Plan of [...] kidney disease, unspecified CKD stage, unspecified whether long-term insulin use (HCC) End stage renal disease (HCC) End stage renal disease documented in this encounter Care Teams Pharmaceutical Compounding Supervisor Relationship Specialty Start Date End Date Aditya Castro Update Information PCP - General 03/06/19 documented as of this encounter
--- OUTSIDE RECORDS SUMMARY | 2024-08-24 04:28 | XMS_ITS | Encounter Summary ---
Author Organization [facility] Address [address] [place] [address] Care Team Providers Care Signal Circuit Designer Name Role Phone Aditya Castro Primary Care Provider Unavailab le Reason for Visit * Reason Comments Refill Request Encounter Details Date Type Department Care Team (Late st Contact Info) Description 04/13/2021 Refill [facility] [address] [place] [address] Girish Vasques MD [address] [facility] [address] [place] [address] Refill Request Social History Tobacco Use Types [...] dermatitis documented in this encounter Care Teams Signal Circuit Designer Relationship Specialty Start Date End Date Aditya Castro Update Information PCP - General 03/06/19 documented as of this encounter
--- OUTSIDE RECORDS SUMMARY | 2024-08-24 04:28 | XMS_ITS | Encounter Summary ---
Author Organization [facility] Address [address] [facility] [place] [address] Care Team Providers Care Commercial Finance Analyst Name Role Phone Aditya Castro Primary Care Provider Unavailab le Reason for Referral * Laboratory Services (Routine) - Closed Specialty Diagnoses / Procedures Referred By Contac t Referred To Contact Diagnoses Pre-transplant evaluation for kidney transplant Procedures FACTOR V LEIDEN MUTATION PANEL Sourav Moscoso MD [address] [employer] [address] [place] [address] Referral ID Status Reason Start Date Expiration Date Visits Re quested Visits Authorized [id number] Closed 03/24/2020 03/24/2021 1 1 * Laboratory Services (Routine) - Closed Specialty Diagnoses / Procedures Referred By Contac t Referred To Contact Diagnoses Pre-transplant evaluation for kidney transplant Procedures PROTHROMBIN [id number] PANEL Sourav Moscoso MD [address] [place], [place] [id number] Referral ID Status Reason Start Date Expiration Date Visits Re quested Visits Authorized [id number] Closed 03/24/2020 03/24/2021 1 1 Encounter Details Date Type Department Care Team (Late st Contact Info) Description 03/24/2020 Orders Only [facility] TRANSPLANT [address] [place] [address] Anali Merino, RN Pre-transplant evaluation for kidney [...] 150 % 05/16/2020 2:07 AM CDT [facility] ([facility]) Comment: This test was developed and its performance characteristics determined by [facility]. It has not been cleared or approved by the Food and Drug Administration. Total Protein S Antigen is an acute phase reactant protein and can be elevated in inflammatory states. Protein S Free 179(H) 57 - 157 % 05/16/2020 2:07 AM CDT [facility] Comment: This test was developed and its performance characteristics determined by [facility]. It has not been cleared or approved by the Food and Drug Administration. Blood BLOOD SPECIMEN / Unknown Lab Venipuncture / Unknown 05/14/2020 10:18 AM CDT 05/14/2020 10:48 AM CDT Narrative [facility] ([facility]) - 05/16/2020 2:07 AM CDT Performed at: ??[address] ??[id number] Type Proof Reproducer: Con Grimaldo MD, Phone: ??[phone] Sourav Moscoso MD LAB - COAGULATION OR DERABLES [facility] ([facility]) [address] [place] [address], [facility] * ANTITHROMBIN III ACTIVITY (05/14/2020 10:18 AM CDT) Pathologist [facility] AT III Activity 125 76 - 128 % 0 9:58 PM CDT [facility] ([facility]) Comment: REFERENCE INTERVAL: Antithrombin, Enzymatic (Activity) Access complete set of age- and/or gender-specific reference intervals for this test in the [facility] ([facility]). Performed by [facility], [address] [place], [place] [id number] www.[facility], Valerie Mast MD, Lab. Director Blood BLOOD SPECIMEN / Unknown Lab Venipuncture / Unknown 05/14/2020 10:18 AM CDT 05/14/2020 10:51 AM CDT Sourav Moscoso MD LAB - COAGULATION OR DERABLES [facility]) [address] [place] [address], [facility] * CARDIOLIPIN ANTIBODY IGM (05/14/2020 10:18 AM CDT) Pathologist [facility] Cardiolipin Antibody IgM 0 0 - 12 MPL 05/17/2020 12:33 AM CDT [facility] ([facility]) Comment: INTERPRETIVE INFORMATION: Anti-Cardiolipin IgM [...] other criteria phospholipid antibody tests. Performed By: [facility] [address] [place] [address] Welding Operator: Valerie Mast MD Blood BLOOD SPECIMEN / Unknown Lab Venipuncture / Unknown 05/14/2020 10:18 AM CDT 05/14/2020 10:57 AM CDT Sourav Moscoso MD LAB - SEROLOGY ORDER ROVERTO Performing Organization Address City/[facility]/ZIP Co de Phone Number [facility]) [address] * CARDIOLIPIN ANTIBODY IGG (05/14/2020 10:18 AM CDT) Cardiolipin Antibody IgG 2 0 - 14 GPL 05/17/2020 12:32 AM CDT [facility] ([facility]) Comment: INTERPRETIVE INFORMATION: Anti-Cardiolipin IgG [...] other criteria phospholipid antibody tests. Performed By: [facility] [address] [place] [address] Welding Operator: Valerie Mast MD Blood BLOOD SPECIMEN / Unknown Lab Venipuncture / Unknown 05/14/2020 10:18 AM CDT 05/14/2020 10:58 AM CDT Sourav Moscoso MD LAB - SEROLOGY ORDER ROVERTO Performing Organization Address City/[facility]/ZIP Co de Phone Number [facility] ([facility]) [address] * FACTOR V LEIDEN MUTATION PANEL (05/14/2020 10:18 AM CDT) Factor V Leiden Source Whole Blood 05/21/2020 4:02 PM [facility] ([facility]) Factor V Leiden PCR/FRET Negative 05/21/2020 4:02 PM [facility] ([facility]) Comment: Indication for testing: Assess genetic risk for thrombosis. NEGATIVE: The factor V Leiden variant, c.1601G>A; p.[id number], was not detected. This does not exclude [...] function in the F5 gene variant c.1601G>A (p.[id number]). Legacy nomenclature: [id number] (1691G>A) CLINICAL SENSITIVITY: 20-50 percent of individuals with an isolated VTE have the FVL variant. METHODOLOGY: Polymerase chain reaction and fluorescence monitoring. ANALYTICAL SENSITIVITY AND SPECIFICITY: 99 percent. LIMITATIONS: Diagnostic errors can occur due to rare sequence variations. F5 gene mutations, other than p.End753Buc, will not be detected. This test was developed and its performance characteristics determined by [facility]. It has not been cleared or approved by the [place] Food and Drug Administration. This test was performed in a CLIA certified laboratory and is intended for clinical purposes. Counseling and informed consent are recommended for genetic testing. Consent forms are available online. Performed by [facility], [address] [id number] www.[facility] [employer], Valerie Mast MD, Lab. Director Blood BLOOD SPECIMEN / Unknown Lab Venipuncture / Unknown 05/14/2020 10:18 AM CDT 05/14/2020 10:49 AM CDT Sourav Moscoso MD LAB - COAGULATION OR DERABLES [facility] ([facility]) [address] [place] [address], [facility] * PROTHROMBIN [id number] PANEL (05/14/2020 10:18 AM CDT) [facility] Prothrombin [id number] Negative 05/21/2020 8:19 PM CDT [facility] ([facility]) Comment: Indication for testing: Assess genetic risk for thrombosis. NEGATIVE: The Factor II, prothrombin O89206Y mutation, was not detected. ??Other causes of [...] result has been reviewed and approved by aJ Cui, Ph.D. BACKGROUND INFORMATION: Prothrombin (F2) c.*97G>A ?(G21041Q) Pathogenic Variant CHARACTERISTICS: The Factor II, c.*97G>A ([id number]) pathogenic variant is a common genetic risk [...] CAUSE: Homozygosity or heterozygosity for F2 c.*97G>A (C66476W). PATHOGENIC VARIANT TESTED: F2 c.*97G>A ([id number]). CLINICAL SENSITIVITY FOR VENOUS THROMBOSIS: Approximately 10 percent. METHODOLOGY: Polymerase chain reaction and fluorescence monitoring. ANALYTICAL SENSITIVITY AND SPECIFICITY: 99 percent. LIMITATIONS: Diagnostic errors can occur due to rare sequence variations. F2 gene variants, other than c.*97G>A ([id number]), will not be detected. This test was developed and its performance characteristics determined by [facility]. It has not been cleared or approved by the [place] Food and Drug Administration. This test was performed in a CLIA certified laboratory and is intended for clinical purposes. Counseling and informed consent are recommended for genetic testing. Consent forms are available online. Performed by [facility], [address] [place] [address] www.[employer], Valerie Mast MD, Lab. Director Source PT [id number] PCR Whole Blood 05/21/2020 8:19 PM CDT [facility]) Blood BLOOD SPECIMEN / Unknown Lab Venipuncture / Unknown 05/14/2020 10:18 AM CDT 05/14/2020 10:48 AM CDT Sourav Moscoso MD LAB - COAGULATION OR DERABLES [facility]) [address] [place] [address] * (ABNORMAL) HOMOCYSTEINE BLOOD QUANTITATIVE (05/14/2020 10:18 AM CDT) [facility] Homocysteine 21.1(H) 4.4 - 16.2 umol/L 05/14/2020 11:51 AM CDT [facility] Blood BLOOD SPECIMEN / Unknown Lab Venipuncture / Unknown 05/14/2020 10:18 AM CDT 05/14/2020 10:48 AM CDT Sourav Moscoso MD LAB - CHEMISTRY SUSANNAH LEONE Performing Organization Address City/State/[facility] Co de Phone Number [address] [phone], [facility] [phone] documented in this encounter Visit Diagnoses Diagnosis Pre-transplant evaluation for kidney transplant- Primary documented in this encounter Care Teams Commercial Finance Analyst Relationship Specialty Start Date End Date Aditya Castro Update Information PCP - General 03/06/19 documented as of this encounter
--- OUTSIDE RECORDS SUMMARY | 2024-08-24 04:28 | XMS_ITS | Encounter Summary ---
Author Organization [facility] Address [address] [place] [address] Care Team Providers Care Blending Technician Name Role Phone Aditya Castro Primary Care Provider Unavailab le Reason for Visit * Reason Comments Kidney Transplant Evaluation Encounter Details Date Type Department Care Team (Late st Contact Info) Description 02/04/2020 Telephone [facility] TRANSPLANT [address] [place] [address] Gracie Chambers, RN Kidney Transplant [...] mention of PHTN. Stated it was[facility]. He also said that he was due [...] an echo some time in 2019 at [facility]. Will request before proceeding with referral. documented in this encounter Plan of Treatment Not on file documented as of this encounter Visit Diagnoses Not on filedocumented in this encounter Care Teams Blending Technician Relationship Specialty Start Date End Date Aditya Castro Update Information PCP - General 03/06/19 documented as of this encounter
--- OUTSIDE RECORDS SUMMARY | 2024-08-24 04:28 | XMS_ITS | Encounter Summary ---
Author Organization [facility] Address [address] [facility] [place] [address] Care Team Providers Care Registered Nurse Float Pool Name Role Phone Aditya Castro Primary Care Provider Unavailab le Encounter Details Date Type Department Care Team (Late st Contact Info) Description 10/16/2020 Orders Only [facility] - COVID Vaccine [address] [place] [phone] Carrington Leos MD [address] [place] [address] Need for vaccination Social History Tobacco Use [...] disease documented in this encounter Care Teams Registered Nurse Float Pool Relationship Specialty Start Date End Date Aditya Castro Update Information PCP - General 03/06/19 documented as of this encounter
--- OUTSIDE RECORDS SUMMARY | 2024-08-24 04:28 | XMS_ITS | Encounter Summary ---
Author Organization [facility] Address [address] [facility] [place] [address] Care Team Providers Care Straight Truck Driver Name Role Phone Aditya Castro Primary Care Provider Unavailab le Encounter Details Date Type Department Care Team (Late st Contact Info) Description 03/20/2020 Orders Only [facility] TRANSPLANT [address] [place] [address] Anali Merino RN Pre-transplant evaluation for kidney [...] transplant documented in this encounter Care Teams Straight Truck Driver Relationship Specialty Start Date End Date Aditya Castro Update Information PCP - General 03/06/19 documented as of this encounter
--- OUTSIDE RECORDS SUMMARY | 2024-08-24 04:28 | XMS_ITS | Encounter Summary ---
Author Organization [facility] Address [address] [place] [address] Care Team Providers Care Field Foreman Name Role Phone Aditya Castro Primary Care Provider Unavailab le Reason for Visit * Reason Comments Kidney Transplant Evaluation Encounter Details Date Type Department Care Team (Late st Contact Info) Description 05/26/2020 Telephone [facility] [address] [place] [address] Carey Chavez Kidney Transplant Evaluation [...] filedocumented in this encounter Care Teams Field Foreman Relationship Specialty Start Date End Date Aditya Castro Update Information PCP - General 03/06/19 documented as of this encounter
--- OUTSIDE RECORDS SUMMARY | 2024-08-24 04:28 | XMS_ITS | Encounter Summary ---
Author Organization [facility] Address [address] [place] [address] Care Team Providers Care Digital Media Sales Consultant Name Role Phone Aditya Castro Primary [...] on filedocumented in this encounter Care Teams Digital Media Sales Consultant Relationship Specialty Start Date End Date Aditya Castro Update Information PCP - General 03/06/19 documented as of this encounter
--- OUTSIDE RECORDS SUMMARY | 2024-08-24 04:28 | XMS_ITS | Patient Health Summary ---
Author Organization [facility] Address [address] [place] [address] Care Team Providers Care Traveling Inventory Associate Name Role Phone Aditya Castro Primary Care Provider Unavailab le Note from [facility],non-owned Affiliates and Associated Physician Practices is amultiple site organization consisting of ambulatory clinics and hospital sitesin [place], [place], [place] and [place]. This disclosure is being madepursuant to the Care Everywhere program and may not contain all information available regarding this patient. Last updated 18.[facility] Allergies * Allopurinol(Other) -High Criticality * Contrast-Iodinated [...] as needed * vitamin D, ergocalciferol, (DRISDOL) 37408 units capsule(Started 02/13/2019) Take 50,000 Units by [...] propionate (FLONASE) 50 MCG/ACT nasal spray(Started 04/24/2019) [place] 1 spray into each nostril once daily * epoetin (PROCRIT) 32424 UNIT/ML injection Inject subcutaneously every 14 days [...] Comments Blood Pressure 140/60 07/13/2020 1:30 PM INSTRUMENT CHECKER Pulse 65 07/13/2020 1:30 PM INSTRUMENT CHECKER Temperature 36.1 ??C (97 ??F) 07/13/2020 1:30 PM INSTRUMENT CHECKER Respiratory Rate 20 07/13/2020 1:30 PM INSTRUMENT CHECKER Oxygen Saturation 95% 07/13/2020 1:30 PM INSTRUMENT CHECKER Inhaled Oxygen Concentration - - Weight 134.3 kg (296 lb) 07/13/2020 1:30 PM INSTRUMENT CHECKER Height 176.5 cm (5' 9.5 ) 07/13/2020 1:30 PM INSTRUMENT CHECKER Body Mass Index 43.08 07/13/2020 1:30 PM INSTRUMENT CHECKER Procedures * CARDIAC EKG ORDER(Performed 05/18/2020) * [...] Pre-transplant evaluation for kidney transplant * PROTHROMBIN [id number] PANEL(Performed 05/14/2020) Performed for Pre-transplant evaluation for [...] cause, unspecified chronicity, unspecified site, [place], unspecifiedtype ([facility]) * URIC ACID BLOOD(Performed 04/26/2019) Performed for Gout, unspecified cause, unspecified chronicity, unspecified site, [place], unspecifiedtype ([facility]) * CARDIAC PROCEDURE ORDER(Performed 11/27/2018) * CARDIAC [...] complication, with long-term current use of insulin ([facility]) * BASIC METABOLIC PANEL (CALCIUM TOTAL)(Performed 11/23/2018) Performed for 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[place] heart with stable angina pectoris, unspecified vessel or lesion type ([facility]) * GLUCOSE - POINT OF CARE(Performed 11/22/2018) * GLUCOSE - POINT OF CARE(Performed 11/22/2018) * GLUCOSE - POINT OF CARE(Performed 11/22/2018) * GLUCOSE - POINT OF CARE(Performed 11/22/2018) * CARDIAC CATH(Performed 11/22/2018) * GLUCOSE - POINT OF CARE(Performed 11/22/2018) * BASIC METABOLIC PANEL (CALCIUM TOTAL)(Performed 11/22/2018) Performed for 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[place] heart with stable angina pectoris, unspecified vessel or lesion type ([facility]) * CARDIAC CATH CONSULT(Performed 11/22/2018) * XR [...] calcifications. Dictated by Ash Moreira MD (president [employer]). I, Dr. HANNAH SPENCE have personally reviewed [...] calcifications. Dictated by Ash Moreira MD (president [employer]). I, Dr. HANNAH SPENCE have personally reviewed [...] Resolution DRB1-1 04 05/29/2020 7:59 AM CDT [facility] ([facility]) DR DQ Low Resolution DRB1-2 11 05/29/2020 7:59 AM CDT [facility] ([facility]) DR DQ Low Resolution DQB1-1 03 (DQ7) 05/29/2020 7:59 AM CDT [facility] ([facility]) DR DQ Low Resolution DQB1-2 03 (DQ8) 05/29/2020 7:59 AM CDT [facility] ([facility]) DR DQ Low Resolution DRB3-1 02 05/29/2020 7:59 AM CDT [facility] ([facility]) DR DQ Low Resolution DRB3-2 Negative 05/29/2020 7:59 AM CDT [facility] ([facility]) DR DQ Low Resolution DRB4-1 01 05/29/2020 7:59 AM CDT [facility] ([facility]) DR DQ Low Resolution DRB4-2 Negative 05/29/2020 7:59 AM CDT [facility] ([facility]) DR DQ Low Resolution DRB5-1 Negative 05/29/2020 7:59 AM CDT [facility] ([facility]) DR DQ Low Resolution DRB5-2 Negative 05/29/2020 7:59 AM CDT [facility] ([facility]) DR DQ Low Resolution Methodology SSOP 05/29/2020 7:59 AM CDT [facility] ([facility]) Comment DR DQ Low Resolution - 05/29/2020 7:59 AM CDT [facility] ([facility]) DR DQ Low Resolution test date 05/28/2020 05/29/2020 7:59 AM CDT [facility] ([facility]) Comment: This test was developed and its performance characteristics determined by the [facility]. ??It has not been cleared or [...] high complexity clinical laboratory testing. ??CLIA ID# [id number] Performed at: ??[facility], [address] @ [facility], [place] ??[address] Tax Lawyer: Jarrod Chin MD, Blood BLOOD SPECIMEN / Unknown Lab Venipuncture / Unknown 05/14/2020 10:18 AM CDT 05/14/2020 10:52 AM CDT Glenny Martin MD LAB - BLOOD BAN K ORDERABLES [facility] ([facility]) [address] [place] [address], [facility] * HLA TYPING DNA LOW RESOLUTION A,B,C (05/14/2020 10:18 AM CDT) ABC DNA A1 03 05/29/2020 7:59 AM CDT [facility] ([facility]) ABC DNA A2 29 05/29/2020 7:59 AM CDT [facility] ([facility]) ABC DNA B1 07 05/29/2020 7:59 AM CDT [facility] ([facility]) ABC DNA B2 44 05/29/2020 7:59 AM CDT [facility] ([facility]) ABC DNA BW1 6 05/29/2020 7:59 AM CDT [facility] ([facility]) ABC DNA BW2 4 05/29/2020 7:59 AM CDT [facility] ([facility]) ABC DNA C1 07 05/29/2020 7:59 AM CDT [facility] ([facility]) ABC DNA C2 - 05/29/2020 7:59 AM CDT [facility] ([facility]) ABC DNA Methodology SSOP 05/29 7:59 AM CDT [facility] ([facility]) Comment ABC DNA - 0 7:59 AM CDT [facility] ([facility]) ABC DNA Test Date 0 05/29/2020 7:59 AM CDT [facility] ([facility]) Comment: This test was developed and its performance characteristics determined by the [facility]. ??It has not been cleared or [...] high complexity clinical laboratory testing. ??CLIA ID# [id number] Performed at: ??[facility], [address] @ [place], [place] ??[address] Tax Lawyer: Jarrod Chin MD, Blood BLOOD SPECIMEN / Unknown Lab Venipuncture / Unknown 05/14/2020 10:18 AM CDT 05/14/2020 10:52 AM CDT Glenny Martin MD LAB - BLOOD BAN K ORDERABLES Performing Organization Address City/[facility]/ZIP Co de Phone Number [facility] ([facility]) [address] [place] [address], [place] * HLA ANTIBODY SCREEN LUM CLASS 2 ID (05/14/2020 10:18 AM CDT) Pathologist [facility] % PRA 90 05/29/2020 7:59 AM CDT [facility] ([facility]) Class 2 LUM Specificity - 05/29/2020 7:59 AM CDT [facility] ([facility]) Class 2 LUM Test Date 0 05/29/2020 7:59 AM CDT [facility] ([facility]) Comment: This test was developed and its performance characteristics determined by the [facility]. ??It has not been cleared or [...] high complexity clinical laboratory testing. ??CLIA ID# [id number] Performed at: ??[facility], [address] @ [place], [place] ??[phone] Tax Lawyer: Jarrod Chin MD, Blood BLOOD SPECIMEN / Unknown Lab Venipuncture / Unknown 05/14/2020 10:18 AM CDT 05/14/2020 10:52 AM CDT Glenny Martin MD LAB - BLOOD BAN K ORDERABLES [facility] ([facility]) [address] [place] [address], [place] * HLA ANTIBODY SCREEN LUM CLASS 1 ID (05/14/2020 10:18 AM CDT) % PRA 4 05/29/2020 7:59 AM CDT [facility] ([facility]) Class 1 LUM Specificity - 05/29/2020 7:59 AM CDT [facility] ([facility]) Class 1 LUM Test Date 0 05/29/2020 7:59 AM CDT [facility] ([facility]) Comment: This test was developed and its performance characteristics determined by the [facility]. ??It has not been cleared or [...] high complexity clinical laboratory testing. ??CLIA ID# [id number] Performed at: ??[facility], [address] @ [place], [place] ??[phone] Tax Lawyer: Jarrod Chin MD, Blood BLOOD SPECIMEN / Unknown Lab Venipuncture / Unknown 05/14/2020 10:18 AM CDT 05/14/2020 10:52 AM CDT Glenny Martin MD LAB - BLOOD BAN K ORDERABLES Performing Organization Address City/[facility]/ZIP Co de Phone Number [facility] ([facility]) [address] [place] [address], [place] * HIV-1 HIV-2 ANTIGEN/ANTIBODY (05/14/2020 10:18 AM CDT) HIV Antigen/Antibod y 1 & 2 Non-reacti ve Non-react bianca 05/14/2020 11:49 AM CDT [facility] Comment:Neither HIV-1 p24 An tigen nor HIV-1/HIV-2 Antibodies are detected. Blood BLOOD SPECIMEN / Unknown Lab Venipuncture / Unknown 05/14/2020 10:18 AM CDT 05/14/2020 10:57 AM CDT Glenny Martin MD LAB - HEMATOLOG Y ORDERABLES Performing Organization Address [facility] Co de Phone Number [address] [address], [facility] [phone] * CANNABINOID SCREEN BLOOD (05/14/2020 10:18 AM CDT) Marijuana Metabolites Negative 05/17/2020 12:06 AM CDT [facility] ([facility]) Comment:REFERENCE RANGE: thr shold: 5 ng/mL Specimen Type Comment 05/17/2020 12:06 AM CDT [facility] ([facility]) Comment: WHOLE BLOOD This specimen was screened by immunoassay at the thresholds listed above. Presumptive positive results have not been confirmed by an alternate method; results are intended for clinical medical purposes. Please contact the laboratory if confirmatory testing is desired. This test was developed and its performance characteristics determined by [employer]. It has not been cleared or approved by the Food and Drug Administration. Blood BLOOD SPECIMEN / Unknown Lab Venipuncture / Unknown 05/14/2020 10:18 AM CDT 05/14/2020 10:53 AM CDT Narrative [facility] ([facility]) - 05/17/2020 12:06 AM CDT Performed at: ??01 - [facility] [employer] [address] [place] [address] ??[id number] Tax Lawyer: Radha Callahan [facility], Phone: ??[phone] Glenny Martin MD LAB - CHEMISTRY ORDERABLES Performing Organization Address [facility]/ZIP Co de Phone Number [facility] ([facility]) [address] [place] [address] * COCAINE METABOLITE QUANT (05/14/2020 10:18 AM CDT) Cocaine and Metabolite Blood <20 ng/mL 05/17/2020 11:07 PM CDT [facility] ([facility]) Comment: INTERPRETIVE INFORMATION: Cocaine Metabolite, ?Serum or Plasma, ?Quantitative Methodology: Quantitative Gas Chromatography- Mass Spectrometry Positive cutoff: 20 ng/mL ?? For medical purposes only; not valid for forensic use. The concentration value must be greater than or equal to the cutoff to be reported as positive. Interpretive questions should be directed to the laboratory. Test developed and characteristics determined by [facility]. See Compliance Statement B: [employer] Performed By: [facility] [address] [place] [address] [employer] Java Developer: Valerie Mast MD Blood BLOOD SPECIMEN / Unknown Lab Venipuncture / Unknown 05/14/2020 10:18 AM CDT 05/14/2020 10:55 AM CDT Glenny Martin MD LAB - CHEMISTRY ORDERABLES Performing Organization Address City/[facility] Co de Phone Number [facility] ([facility]) [address] [place] [address] * SYPHILIS ANTIBODY CASCADING REFLEX (05/14/2020 10:18 AM CDT) Treponema pallidum Antibody Non-react bianca Non-react bianca 05/14/2020 11:47 AM CDT [facility] Comment: No Laboratory evidence of syphilis infection. ?? Note: ??Circulating antibodies may be low or undetectable in early infection. ??If recent exposure is suspected, re-draw sample in 2-4 weeks and repeat testing. Blood BLOOD SPECIMEN / Unknown Lab Venipuncture / Unknown 05/14/2020 10:18 AM CDT 05/14/2020 10:55 AM CDT Glenny Martin MD LAB - SEROLOGY ORDERABLES Performing Organization Address City/[facility]/ZIP Co de Phone Number [address] [address], [place] [phone] * AMPHETAMINE BLOOD CONFIRMATION (05/14/2020 10:18 AM CDT) Amphetamines Confirmation <20 ng/mL 05/20/2020 12:29 PM CDT [facility] ([facility]) Comment: INTERPRETIVE INFORMATION: Amphetamines, Serum or [...] laboratory. Test developed and characteristics determined by [facility]. See Compliance Statement B: [employer] Methamphetamine Confirmation <20 ng/mL 05/20/2020 12:29 PM CDT [facility] ([facility]) MDA Confirmation <20 ng/mL 05/20/20 20 12:29 PM CDT [facility]) MDMA Confirm <20 ng/mL 05/20/2020 12:29 PM CDT [facility] ([facility]) MDEA Confirmation <20 ng/mL 020 12:29 PM CDT [facility]) Comment: Performed By: [facility] [address] [place] [address] Federal Java Developer: Valerie Mast MD Blood BLOOD SPECIMEN / Unknown Lab Venipuncture / Unknown 05/14/2020 10:18 AM CDT 05/14/2020 10:57 AM CDT Glenny Martin MD LAB - CHEMISTRY ORDERABLES [facility] ([facility]) [address] [place] [address], [facility] * (ABNORMAL) PTH INTACT ([facility]) (05/14/2020 10:18 AM CDT) PTH Intact 653.3(H) 8.0 - 77.0 pg/mL 05/14/2020 11:34 AM CDT [facility] Blood BLOOD SPECIMEN / Unknown Lab Venipuncture / Unknown 05/14/2020 10:18 AM CDT 05/14/2020 10:55 AM CDT Glenny Martin MD LAB - CHEMISTRY ORDERABLES Performing Organization Address [facility]/ZIP Co de Phone Number [place] [id number] [place] [address], [facility] [phone] * OPIATES BLOOD (05/14/2020 10:18 AM CDT) [facility] Opiates Screen Negative 05/17/2020 12:06 AM CDT [facility] ([facility]) Comment:REFERENCE RANGE: thr shold: 10 ng/mL Oxycodone Screen Negative 05/17/20 12:06 AM CDT [facility] ([facility]) Comment:REFERENCE RANGE: thr shold: 10 ng/mL Specimen Type Comment 05/17/2020 12:06 AM CDT [facility] ([facility]) Comment: WHOLE BLOOD This specimen was screened by immunoassay at the thresholds listed above. Presumptive positive results have not been confirmed by an alternate method; results are intended for clinical medical purposes. Please contact the laboratory if confirmatory testing is desired. This test was developed and its performance characteristics determined by [employer]. It has not been cleared or approved by the Food and Drug Administration. Blood BLOOD SPECIMEN / Unknown Lab Venipuncture / Unknown 05/14/2020 10:18 AM CDT 05/14/2020 10:53 AM CDT Narrative [facility] ([facility]) - 05/17/2020 12:06 AM CDT Performed at: ??01 - [facility] [address] [place] [address] ??[id number] Tax Lawyer: Radha Callahan [facility], Phone: ??[phone] Glenny Martin MD LAB - CHEMISTRY ORDERABLES [facility] ([facility]) [address] [place] [address], [facility] * (ABNORMAL) URIC ACID BLOOD (05/14/2020 10:18 AM CDT) Only the most recent of2 resultswithin the time period is included. Uric Acid 8.4(H) 2.6 - 7.2 mg/dL 05/14/2020 11:41 AM CDT [facility] Blood BLOOD SPECIMEN / Unknown Lab Venipuncture / Unknown 05/14/2020 10:18 AM CDT 05/14/2020 10:55 AM CDT Glenny Martin MD LAB - CHEMISTRY ORDERABLES [facility] [address] [place] [address], [facility] [phone] * PROTHROMBIN [id number] PANEL (05/14/2020 10:18 AM CDT) Prothrombin [id number] Negative 05/21/2020 8:19 PM CDT [facility] ([facility]) Comment: Indication for testing: Assess genetic risk for thrombosis. NEGATIVE: The Factor II, prothrombin N75393X mutation, was not detected. ??Other causes of [...] Cui, Ph.D. 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 PATHOGENIC VARIANT TESTED: F2 c.*97G>A (B27446G). CLINICAL SENSITIVITY FOR VENOUS THROMBOSIS: Approximately 10 percent. METHODOLOGY: Polymerase chain reaction and fluorescence monitoring. ANALYTICAL SENSITIVITY AND SPECIFICITY: 99 percent. LIMITATIONS: Diagnostic errors can occur due to rare sequence variations. F2 gene variants, other than c.*97G>A (B88683T), will not be detected. This test was developed and its performance characteristics determined by [facility]. It has not been cleared or approved by the US Food and Drug Administration. This test was performed in a CLIA certified laboratory and is intended for clinical purposes. Counseling and informed consent are recommended for genetic testing. Consent forms are available online. Performed by [facility], [address] [place] [address] [email or web address], Valerie Mast MD, Lab. Director Source PT [id number] PCR Whole Blood 05/21/2020 8:[address] [facility]) Blood BLOOD SPECIMEN / Unknown Lab Venipuncture / Unknown 05/14/2020 10:18 AM CDT 05/14/2020 10:48 AM CDT Sourav Moscoso MD LAB - COAGULATION OR DERABLES [facility]) [address] * (ABNORMAL) PROTEIN S ANTIGEN (05/14/2020 10:18 AM CDT) [facility] Protein S Antigen Total 177(H) 60 - 150 % 05/16/2020 2:07 AM CDT [facility] ([facility]) Comment: This test was developed and its performance characteristics determined by [facility]. It has not been cleared or approved by the Food and Drug Administration. Total Protein S Antigen is an acute phase reactant protein and can be elevated in inflammatory states. Protein S Free 179(H) 57 - 157 % 05/16/2020 2:07 AM CDT [facility] ([facility]) Comment: This test was developed and its performance characteristics determined by [facility]. It has not been cleared or approved by the Food and Drug Administration. Blood BLOOD SPECIMEN / Unknown Lab Venipuncture / Unknown 05/14/2020 10:18 AM CDT 05/14/2020 10:48 AM CDT Narrative [facility] ([facility]) - 05/16/2020 2:07 AM CDT Performed at: ??01 - [facility] ??[id number] Tax Lawyer: Con Grimaldo MD, Phone: ??[phone] Sourav Moscoso MD LAB - COAGULATION OR DERABLES [facility]) [address] [place] [address] * STRONGYLOIDES ANTIBODY IGG (05/14/2020 10:18 AM CDT) Strongyloides Antibody IgG 0.2 <=0.9 IV 05/17/2020 10:58 PM CDT [facility] ([facility]) Comment: INTERPRETIVE INFORMATION: Strongyloides Ab, IgG [...] also result in false-positive results. Performed By: [facility] [facility] [address] [place] [address] Federal Java Developer: Valerie Mast MD Blood BLOOD SPECIMEN / Unknown Lab Venipuncture / Unknown 05/14/2020 10:18 AM CDT 05/14/2020 10:55 AM CDT Glenny Martin MD LAB - SEROLOGY ORDERABLES [facility]) [address] [place] [address], [facility] * FACTOR V LEIDEN MUTATION PANEL (05/14/2020 10:18 AM CDT) [facility] Factor V Leiden Source Whole Blood 05/21/2020 4:02 PM CDT [facility] ([facility]) Factor V Leiden PCR/FRET Negative 05/21/2020 4:02 PM CDT [facility] ([facility]) Comment: Indication for testing: Assess genetic risk for thrombosis. NEGATIVE: The factor V Leiden variant, c.1601G>A; p.[id number], was not detected. This does not exclude [...] function in the F5 gene variant c.1601G>A (p.[id number]). Legacy nomenclature: [id number] (1691G>A) CLINICAL SENSITIVITY: 20-50 percent of individuals with an isolated VTE have the FVL variant. METHODOLOGY: Polymerase chain reaction and fluorescence monitoring. ANALYTICAL SENSITIVITY AND SPECIFICITY: 99 percent. LIMITATIONS: Diagnostic errors can occur due to rare sequence variations. F5 gene mutations, other than p.[id number], will not be detected. This test was developed and its performance characteristics determined by [facility]. It has not been cleared or approved by the US Food and Drug Administration. This test was performed in a CLIA certified laboratory and is intended for clinical purposes. Counseling and informed consent are recommended for genetic testing. Consent forms are available online. Performed by [facility], [address] [place] [id number] [email or web address], Valerie Mast MD, Lab. Director Blood BLOOD SPECIMEN / Unknown Lab Venipuncture / Unknown 05/14/2020 10:18 AM CDT 05/14/2020 10:49 AM CDT Sourav Moscoso MD LAB - COAGULATION OR DERABLES [facility] ([facility]) [address] * CARDIOLIPIN ANTIBODY IGM (05/14/2020 10:18 AM CDT) Cardiolipin Antibody IgM 0 0 - 12 MPL 05/17/2020 12:33 AM CDT [facility] ([facility]) Comment: INTERPRETIVE INFORMATION: Anti-Cardiolipin IgM 0-12 [...] other criteria phospholipid antibody tests. Performed By: [facility] [address] [place] [address] Federal Java Developer: Valerie Mast MD Blood BLOOD SPECIMEN / Unknown Lab Venipuncture / Unknown 05/14/2020 10:18 AM CDT 05/14/2020 10:57 AM CDT Sourav Moscoso MD LAB - SEROLOGY ORDER ROVERTO [facility] ([facility]) [address] * CARDIOLIPIN ANTIBODY IGG (05/14/2020 10:18 AM CDT) Cardiolipin Antibody IgG 2 0 - 14 GPL 05/17/2020 12:32 AM CDT [facility] ([facility]) Comment: INTERPRETIVE INFORMATION: Anti-Cardiolipin IgG Ab [...] other criteria phospholipid antibody tests. Performed By: [facility] [address] [place] [address] Federal Java Developer: Valerie Mast MD Blood BLOOD SPECIMEN / Unknown Lab Venipuncture / Unknown 05/14/2020 10:18 AM CDT 05/14/2020 10:58 AM CDT Sourav Moscoso MD LAB - SEROLOGY ORDER ROVERTO [facility]) [address] [place] [address], [facility] * CYTOMEGALOVIRUS ANTIBODY IGG BLOOD (05/14/2020 10:18 AM CDT) [facility] Cytomegalovirus Antibody IgG >10.00 U/mL 05/16/2020 6:28 PM CDT [facility] ([facility]) Comment: INTERPRETIVE INFORMATION: Cytomegalovirus Antibody, IgG [...] laboratory at the same time. Performed By: [facility] [address] [place] [address] Federal Java Developer: Valerie Mast MD Blood BLOOD SPECIMEN / Unknown Lab Venipuncture / Unknown 05/14/2020 10:18 AM CDT 05/14/2020 10:55 AM CDT Glenny Martin MD LAB - CHEMISTRY ORDERABLES [facility] ([facility]) [address] [place] [address], [facility] * RUBELLA ANTIBODY IGG TITER (05/14/2020 10:18 AM CDT) [facility] Rubella Antibody IgG 50.1 IU/mL 05/16/2020 6:32 PM CDT [facility] ([facility]) Comment: INTERPRETIVE INFORMATION: Rubella Antibody, IgG [...] the amount of antibody present. Performed By: [facility] [address] [place] [address] [place] [id number] Federal Java Developer: Valerie Mast MD Blood BLOOD SPECIMEN / Unknown Lab Venipuncture / Unknown 05/14/2020 10:18 AM CDT 05/14/2020 10:56 AM CDT Glenny Martin MD LAB - SEROLOGY ORDERABLES [facility]) [address] * RUBEOLA ANTIBODY IGG (05/14/2020 10:18 AM CDT) Measles ([facility]ube[facility]) Antibody IgG >300.0 AU/mL 05/16/2020 2:46 PM CDT [facility] ([facility]) Comment: INTERPRETIVE INFORMATION: Measles (Rubeola) Antibody, [...] laboratory at the same time. Performed By: [facility] [address] [place] [id number] [employer] Developer: Valerie Mast MD Blood BLOOD SPECIMEN / Unknown Lab Venipuncture / Unknown 05/14/2020 10:18 AM CDT 05/14/2020 10:57 AM CDT Glenny Martin MD LAB - CHEMISTRY ORDERABLES [facility]) [address] [place] [address], [facility] * MUMPS ANTIBODY IGG (05/14/2020 10:18 AM CDT) [facility] Mumps Virus Antibody IgG 17.2 AU/mL 05/16/2020 6:30 PM CDT [facility] ([facility]) Comment: INTERPRETIVE INFORMATION: Mumps Ab, IgG [...] laboratory at the same time. Performed By: [facility] [address] [place] [id number] [employer] Developer: Valerie Mast MD Blood BLOOD SPECIMEN / Unknown Lab Venipuncture / Unknown 05/14/2020 10:18 AM CDT 05/14/2020 10:57 AM CDT Glenny Martin MD LAB - CHEMISTRY ORDERABLES [facility] ([facility]) [address] [place] [address], [facility] * VARICELLA ZOSTER ANTIBODY IGG (05/14/2020 10:18 AM CDT) Varicella zoster Virus Antibody IgG 3705.0 IV 05/16/2020 2:46 PM CDT [facility] ([facility]) Comment: INTERPRETIVE INFORMATION: VZV Ab, IgG [...] laboratory at the same time. Performed By: [facility] [address] [place] [id number] Federal Java Developer: Valerie Mast MD Blood BLOOD SPECIMEN / Unknown Lab Venipuncture / Unknown 05/14/2020 10:18 AM CDT 05/14/2020 10:57 AM CDT Glenny Martin MD LAB - CHEMISTRY ORDERABLES Performing Organization Address [facility] Co de Phone Number [facility]) [address] [place] [address] * PROTEIN C ACTIVITY (05/14/2020 10:18 AM CDT) Protein C Activity 155 83 - 168 % 05/16/2020 10:47 PM CDT [facility] ([facility]) Comment: INTERPRETIVE INFORMATION: Protein C, Functional [...] reference intervals for this test in the [facility] Laboratory Test Directory ([email or web address]). Performed by [facility], [address] [place] [address] [email or web address], Valerie Mast MD, Lab. Director Blood BLOOD SPECIMEN / Unknown Lab Venipuncture / Unknown 05/14/2020 10:18 AM CDT 05/14/2020 10:48 AM CDT Glenny Martin MD LAB - COAGULATI ON ORDERABLES Performing Organization Address [facility] de Phone Number [facility]) [address] [place] [address] * TRANSFERRIN (05/14/2020 10:18 AM CDT) Transferrin 245 174 - 382 mg/dL 05/14/2020 11:41 AM CDT [facility] Transferrin Saturation % 27 16 - 50 % 05/14/2020 11:41 AM CDT [facility] Blood BLOOD SPECIMEN / Unknown Lab Venipuncture / Unknown 05/14/2020 10:18 AM CDT 05/14/2020 10:57 AM CDT Glenny Martin MD LAB - CHEMISTRY ORDERABLES [place] [id number] [place] [address], [facility] [phone] * TOXOPLASMA GONDII ANTIBODY IGG (05/14/2020 10:18 AM CDT) Toxoplasma Antibody IgG <3.0 IU/mL 05/16/2020 6:32 PM CDT [facility] ([facility]) Comment: INTERPRETIVE INFORMATION: Toxoplasma Ab, IgG [...] the amount of antibody present. Performed By: [facility] [address] [place] [id number] Federal Java Developer: Valerie Mast MD Blood BLOOD SPECIMEN / Unknown Lab Venipuncture / Unknown 05/14/2020 10:18 AM CDT 05/14/2020 10:58 AM CDT Glenny Martin MD LAB - CHEMISTRY ORDERABLES [facility]) [address] * (ABNORMAL) MADIHA-MORRIS VIRUS ANTIBODY TO VCA IGG (05/14/2020 10:18 AM CDT) Pathologist [facility] Madiha-Morris Virus Antibody IgG Viral Capsid Antigen 115.0(H) 0.0 - 21.9 U/mL 05/16/2020 5:10 PM CDT [facility] ([facility]) Comment: INTERPRETIVE INFORMATION: Madiha-Morris Virus Antibody to ?Viral Capsid Antigen, IgG ??17.9 U/mL or less.......Not Detected ??18.0-21.9 U/mL..........Indeterminate - Repeat testing in ?10-14 days may be helpful. ??22.0 U/mL or greater....Detected Performed By: [facility] [employer] [facility] [address] [place] [id number] Federal Java Developer: Valerie Mast MD Blood BLOOD SPECIMEN / Unknown Lab Venipuncture / Unknown 05/14/2020 10:18 AM CDT 05/14/2020 10:55 AM CDT Glenny Martin MD LAB - CHEMISTRY ORDERABLES Performing Organization Address City/State/[facility] Co de Phone Number [facility] ([facility]) [address] [place] [address], [facility] * (ABNORMAL) HEMOGLOBIN A1C (05/14/2020 10:18 AM CDT) Only the most recent of2 resultswithin the time period is included. Hemoglobin A1c 7.7(H) 4.4 - 6.3 % 05/14/2020 3:37 PM CDT [facility] Estimated Average Glucose 174 mg/dL 05/14/2020 3:37 PM T [facility] Comment: HbA1c Interpretation: Treatment target values recommended by ADA and other clinical organizations should be used to evaluate metabolic control in patients. Treatment Target Values: Normal : < 5.7% Pre-diabetes: 5.7-6.4% Diabetes: Equal to or greater than 6.5% Reference: [place] [employer] Standards of Care in Diabetes -2014 In patients 70 years and older consider HbA1c target range of 7.0-7.5% Reference: ??Diabetes Mellitus in Older People: Position Statement on behalf of the International Association of Gerontology and Geriatrics (IAGG), the Diabetes Working Libertarian for Older People (EDWPOP), and the International Task Force of Experts in Diabetes. ??Casarez A, et al. J [employer] [employer]. 2012 Test results diagnostic of diabetes should be repeated for confirmation. The Sebia Capillary 2 assay for the measurement of HbA1c is a National Glycohemoglobin Standardization Program (NGSP)certified method. Blood BLOOD SPECIMEN / Unknown Lab Venipuncture / Unknown 05/14/2020 10:18 AM CDT 05/14/2020 10:55 AM CDT Glenny Martin MD LAB - CHEMISTRY ORDERABLES Performing Organization Address [facility]/ZIP Co de Phone Number [address] [address], [place] [phone] * (ABNORMAL) HOMOCYSTEINE BLOOD QUANTITATIVE (05/14/2020 10:18 AM CDT) Homocysteine 21.1(H) 4.4 - 16.2 umol/L 05/14/2020 11:51 AM CDT [facility] Blood BLOOD SPECIMEN / Unknown Lab Venipuncture / Unknown 05/14/2020 10:18 AM CDT 05/14/2020 10:48 AM CDT Sourav Moscoso MD LAB - CHEMISTRY HUANE SULEMA Performing Organization Address [facility]/ZIP Co de Phone Number [address] [address], [place] [phone] * ANTITHROMBIN III ACTIVITY (05/14/2020 10:18 AM CDT) AT III Activity 125 76 - 128 % 0 9:58 PM CDT [facility] ([facility]) Comment: REFERENCE INTERVAL: Antithrombin, Enzymatic (Activity) Access complete set of age- and/or gender-specific reference intervals for this test in the [facility] Laboratory Test Directory ([email or web address]). Performed by [facility], [address] [place] [id number] [email or web address], Valerie Mast MD, Lab. Director Blood BLOOD SPECIMEN / Unknown Lab Venipuncture / Unknown 05/14/2020 10:18 AM CDT 05/14/2020 10:51 AM CDT Sourav Moscoso MD LAB - COAGULATION OR DERABLES [facility] ([facility]) [address] [place] [address], [facility] * (ABNORMAL) VITAMIN D 25-HYDROXY (05/14/2020 10:18 AM CDT) Only the most recent of2 resultswithin the time period is included. [facility] Vitamin D, 25 Hydroxy 23.0(L) See comment: ng/mL 05/14/2020 11:48 AM CDT [facility] Comment: The recommendations for 25-Hydroxy Vitamin [...] LAB - CHEMISTRY ORDERABLES Performing Organization Address City/[facility]/ZIP Co de Phone Number [facility] [address] [place] [address], [place] [phone] * BLOOD TYPE ABO+ RH PANEL (05/14/2020 10:18 AM CDT) ABO Rh A POS 05/14/2020 12:11 PM CDT [facility] Blood BLOOD SPECIMEN / Unknown Lab Venipuncture / Unknown 05/14/2020 10:18 AM CDT 05/14/2020 11:29 AM CDT Glenny Martin MD LAB - BLOOD BAN K ORDERABLES [facility] [address] [place] [address], [facility] [phone] * NICOTINE + METABOLITES BLOOD (05/14/2020 10:18 AM CDT) Nicotine <2 ng/mL 05/18/2020 10:08 PM CDT [facility] ([facility]) Comment: Consistent with abstinence from nicotine-containing [...] ?? Test developed and characteristics determined by [facility]. See Compliance Statement B: [employer] Performed By: [facility] [address] [place] [id number] Federal Java Developer: Valerie Mast MD 3-Hydroxy Cotinine <2 ng/mL 2019 10:08 PM CDT [facility]) Cotinine <2 ng/mL 05/18/2020 10:08 PM CDT [facility]) Blood BLOOD SPECIMEN / Unknown Lab Venipuncture / Unknown 05/14/2020 10:18 AM CDT 05/14/2020 10:57 AM CDT Glenny Martin MD LAB - CHEMISTRY ORDERABLES [facility]) [address] [place], [place] [address] * (ABNORMAL) CBC W AUTO DIFFERENTIAL (05/14/2020 10:18 AM CDT) Only the most recent of2 resultswithin the time period is included. WBC 5.0 3.5 - 10.5 10? 3 /uL 05/14/2020 11:03 AM [facility] RBC 3.45(L) 4.30 - 5.70 10? 6 /uL 05/14/2020 11:03 AM [facility] Hemoglobin 10.7(L) 13.5 - 17.5 g/dL 05/14/2020 11:03 AM [facility] Hematocrit 31.1(L) 39.0 - 50.0 % 05/14/2020 11:03 AM [facility] MCV 90.1 81.0 - 97.0 fL 05/14/2020 11:03 AM [facility] MCH 31.0 28.0 - 34.0 pg 05/14/2020 11:03 AM [facility] MCHC 34.4 32.0 - 36.0 g/dL 05/14/2020 11:03 AM [facility] Platelet Count 232 150 - 400 10? 3 /uL 05/14/2020 11:03 AM [facility] RDW-SD 42.4 36.0 - 50.0 fL 05/14/2020 11:03 AM [facility] RDW-CV 12.9 11.2 - 14.8 % 05/14/2020 11:03 AM [facility] MPV 9.8 9.3 - 12.8 fL 05/14/2020 11:03 AM [facility] nRBC Absolute 0.00 0 10? 3 /uL 05/14/2020 11:03 AM [facility] nRBC Auto 0.0 0 /100 WBC 05/14/2020 11:03 AM [facility] Neutrophils % 54.8 35.0 - 70.0 % 05/14/2020 11:03 AM [facility] Lymphocytes % 31.2 19.7 - 55.1 % 05/14/2020 11:03 AM [facility] Monocytes % 9.4 3.0 - 15.0 % 05/14/2020 11:03 AM [facility] Eosinophils % 3.8 0.0 - 6.0 % 05/14/2020 11:03 AM [facility] Basophil % 0.6 0.0 - 1.5 % 05/14/2020 11:03 AM [facility] Neutrophils Absolute 2.7 1.6 - 7.0 10? 3 /uL 05/14/2020 11:03 AM [facility] Lymphocyte Absolute 1.6 0.8 - 2.9 10? 3 /uL 05/14/2020 11:03 AM [facility] Monocytes Absolute 0.47 0.14 - 0.66 10? 3 /uL 05/14/2020 11:03 AM [facility] Eosinophils Absolute 0.19 0.00 - 0.45 10? 3 /uL 05/14/2020 11:03 AM [facility] Basophils Absolute 0.03 0.00 - 0.06 10? 3 /uL 05/14/2020 11:03 AM [facility] Immature Granulocytes % 0.2 0.0 - 1.0 % 05/14/2020 11:03 AM [facility] Blood BLOOD SPECIMEN / Unknown Lab Venipuncture / Unknown 05/14/2020 10:18 AM CDT 05/14/2020 10:55 AM [facility] Glenny Martin MD LAB - HEMATOLOG Y ORDERABLES [facility] [address] [place] [address], [facility] [phone] * (ABNORMAL) COMPREHENSIVE METABOLIC PANEL (05/14/2020 10:18 AM [facility]) Only the most recent of2 resultswithin the [...] 98 - 107 mmol/L 05/14/2020 11:41 AM [facility] CO2 28 22 - 29 mmol/L 05/14/2020 11:41 AM [facility] Glucose 162(H) 70 - 115 mg/dL 05/14/2020 11:41 AM [facility] Calcium 9.0 8.4 - 10.2 mg/dL 05/14/2020 11:41 AM [facility] Protein Total 6.9 6.0 - 8.3 g/dL 05/14/2020 11:41 AM [facility] Albumin 3.7 3.4 - 5.0 g/dL [...] 1.1 - 2.3 05/14/2020 11:41 AM CDT [facility] eGFR 11(L) >60 mL/min/1.7 3 m2 05/14/2020 11:41 AM CDT [facility] Blood BLOOD SPECIMEN / Unknown Lab Venipuncture / Unknown 05/14/2020 10:18 AM CDT 05/14/2020 10:55 AM CDT Glenny Martin MD LAB - CHEMISTRY ORDERABLES [facility] [address] [place] [address], [place] [phone] * PROSTATE SPECIFIC ANTIGEN SCREEN (05/14/2020 10:18 AM CDT) PSA Total 0.4 0.0 - 4.0 ng/mL 05/14/2020 11:59 AM CDT [facility] Blood BLOOD SPECIMEN / Unknown Lab Venipuncture / Unknown 05/14/2020 10:18 AM CDT 05/14/2020 10:55 AM CDT Glenny Martin MD LAB - CHEMISTRY ORDERABLES Performing Organization Address [facility] Co de Phone Number [address] [address], [place] [phone] * (ABNORMAL) PHOSPHORUS BLOOD (05/14/2020 10:18 AM CDT) Phosphorus 5.1(H) 2.3 - 4.7 mg/dL 05/14/2020 11:41 AM CDT [facility] Blood BLOOD SPECIMEN / Unknown Lab Venipuncture / Unknown 05/14/2020 10:18 AM CDT 05/14/2020 10:55 AM CDT Glenny Martin MD LAB - CHEMISTRY ORDERABLES Performing Organization Address City/[facility]/ZIP Co de Phone Number [address] [address], [place] [phone] * IRON BLOOD (05/14/2020 10:18 AM CDT) Iron 84 50 - 175 mcg/dL 05/14/2020 11:41 AM CDT [facility] Blood BLOOD SPECIMEN / Unknown Lab Venipuncture / Unknown 05/14/2020 10:18 AM CDT 05/14/2020 10:57 AM CDT Glenny Martin MD LAB - CHEMISTRY ORDERABLES Performing Organization Address City/[facility]/ZIP Co de Phone Number [facility] [address] [place] [address], [facility] [phone] * (ABNORMAL) HEPATITIS B SURFACE ANTIBODY (05/14/2020 10:18 AM CDT) [facility] Hepatitis B Virus Surface Antibody Reactive( A) Non-react bianca 05/14/2020 11:47 AM CDT [facility] Comment: > 12 mIU/mL Hepatitis B surface Antibody (HBsAb). Reactive for HBsAb - individual is considered immune to Hepatitis B Virus infection. Hepatitis B Surface Antibody Quantitative 72.7(H) <8.0 mIU/mL 05/14/2020 11:47 AM CDT [facility] Comment: Hepatitis B Surface Antibody Numeric Result Interpretation: ? Nonreactive: ?<8.0 mIU/mL ? Indeterminate: ??8.0 - 12.0 mIU/mL ? Reactive: ?>12.0 mIU/mL ? Blood BLOOD SPECIMEN / Unknown Lab Venipuncture / Unknown 05/14/2020 10:18 AM CDT 05/14/2020 10:55 AM CDT Glenny Martin MD LAB - CHEMISTRY ORDERABLES Performing Organization Address [facility]/ZIP Co de Phone Number [facility] [address] [place] [address], [place] [phone] * HEPATITIS B CORE ANTIBODY (05/14/2020 10:18 AM CDT) Pathologist [facility] HBc Antibody Total Non-reacti ve Non-reacti ve 05/14/2020 11:47 AM CDT [facility] Blood BLOOD SPECIMEN / Unknown Lab Venipuncture / Unknown 05/14/2020 10:18 AM CDT 05/14/2020 10:55 AM CDT Glenny Martin MD LAB - CHEMISTRY ORDERABLES [address] [address], [place] [phone] * HEPATITIS B SURFACE ANTIGEN W RFLX CONFIRMATION (05/14/2020 10:18 AM CDT) [facility] Hepatitis B Virus Surface Antigen Non-reacti ve Non-reacti ve 05/14/2020 11:47 AM CDT [facility] Blood BLOOD SPECIMEN / Unknown Lab Venipuncture / Unknown 05/14/2020 10:18 AM CDT 05/14/2020 10:55 AM CDT Glenny Martin MD LAB - CHEMISTRY ORDERABLES Performing Organization Address [facility] Co de Phone Number [address] [address], [place] [phone] * ALCOHOL ETHYL BLOOD (05/14/2020 10:18 AM CDT) [facility] Interpretation Ethanol None Detected None Detected mg/dL 05/14/2020 11:41 AM CDT [facility] Comment:Ethanol levels less than 10 mg/dL are resulted as None detected . Blood BLOOD SPECIMEN / Unknown Lab Venipuncture / Unknown 05/14/2020 10:18 AM CDT 05/14/2020 10:55 AM CDT Glenny Martin MD LAB - CHEMISTRY ORDERABLES Performing Organization Address City/[facility]/ZIP Co de Phone Number [address] [address], [place] [phone] * HEPATITIS C ANTIBODY (05/14/2020 10:18 AM CDT) Pathologist [facility] Hepatitis C Antibody Non-react bianca Non-reac tive 05/14/2020 11:49 AM CDT [facility] Comment:Hepatitis C Antibody screen [...] LAB - CHEMISTRY ORDERABLES Performing Organization Address [facility] Co de Phone Number [facility] [address] [place] [address], [facility] [phone] * (ABNORMAL) HEPATITIS A ANTIBODY (05/14/2020 10:18 AM CDT) [facility] Hepatitis A Virus Antibody Total Positive( A) Negative 05/16/2020 11:02 AM CDT [facility] ([facility]) Comment: The positive anti-HAV is consistent with recent or remote Hepatitis A infection or antibody response to HAV vaccination. False positive anti-HAV can occur. Performed by [facility], [address] [place] [address] [email or web address], Valerie Mast MD, Lab. Director Blood BLOOD SPECIMEN / Unknown Lab Venipuncture / Unknown 05/14/2020 10:18 AM CDT 05/14/2020 10:57 AM CDT Glenny Martin MD LAB - CHEMISTRY ORDERABLES Performing Organization Address [facility]/ZIP Co de Phone Number [facility]) [address] [place] [address] * (ABNORMAL) FERRITIN (05/14/2020 10:18 AM CDT) [facility] Ferritin 502(H) 22 - 275 ng/mL 05/14/2020 11:47 AM CDT [facility] Blood BLOOD SPECIMEN / Unknown Lab Venipuncture / Unknown 05/14/2020 10:18 AM CDT 05/14/2020 10:55 AM CDT Glenny Martin MD LAB - CHEMISTRY ORDERABLES [facility] [address] [place] [address], [facility] [phone] * (ABNORMAL) LIPID PROFILE (05/14/2020 10:18 AM CDT) Cholesterol Total 137 <200 mg/dL 05/14/2020 11:41 AM T [facility] HDL 28(L) >40 mg/dL 05/14/2020 11:41 AM [facility] Comment: ATP III Classification of HDL Cholesterol: ? <40 mg/dL: ??Considered a major risk factor. ? >60 mg/dL: ??Considered a negative risk factor. ? LDL Calculated 70 <100 mg/dL 05/14/2020 11:41 AM [facility] Comment: ATP III Classification of LDL Cholesterol: ?<100 mg/dL: ??Optimal ? 100 - 129 mg/dL: ??Near Optimal/Above Optimal ? 130 - 159 mg/dL: ??Borderline High ? 160 - 189 mg/dL: ??High ?>190 mg/dL: ??Very High ? Triglycerides 196(H) <150 mg/dL 05/14/2020 11:41 AM [facility] Comment: ATP III Classification of Triglycerides: ?<150 mg/dL: ??Normal ? 150 - 199 mg/dL: ??Borderline High ? 200 - 400 mg/dL: ??High ?>500 mg/dL: ??Very High Blood BLOOD SPECIMEN / Unknown Lab Venipuncture / Unknown 05/14/2020 10:18 AM CDT 05/14/2020 10:55 AM CDT Glenny Martin MD LAB - CHEMISTRY ORDERABLES Performing Organization Address City/[facility]/ZIP Co de Phone Number [facility] [address] [place] [address], [facility] [phone] * TYPE + SCREEN PANEL (05/14/2020 10:06 AM CDT) Antibody Screen NEG 0 12:17 PM CDT [facility] ABO Rh A POS 05/14/2020 12:17 PM CDT [facility] Blood Bank BLOOD SPECIMEN / Unknown Lab Venipuncture / Unknown 05/14/2020 10:06 AM CDT 05/14/2020 11:30 AM CDT Glenny Martin MD LAB - BLOOD BAN K ORDERABLES Performing Organization Address City/[facility]/ZIP Co de Phone Number [facility] [address] [place] [address], [facility] [phone] * XR PANOREX (05/14/2020 7:35 AM CDT) Anatomical Region Laterality Modality Head Radiographic Toma ging 05/14/2020 7:56 AM CDT Impressions 05/15/2020 7:51 AM CDT IMPRESSION: No periapical abscess identified. Dictated by Kristie Bee MD (president [employer]). I, Dr. CONRAD GONZALES MD have personally [...] identified. Dictated by Kristie Bee MD (president consumer [employer]). Dr. CONRAD Champion MD have personally reviewed [...] normal. Dictated by Kristie Bee MD (president [employer]). Dr. CONRAD Champion MD have personally reviewed [...] normal. Dictated by Kristie Bee MD (president [employer]). Dr. CORNAD Champion MD have personally reviewed and interpreted [...] approximately 13% higher for people identified as -Haitian. eGFR by MDRD 14(L) > OR = [...] Lbs [address] [facility] Comment: Test Performed at: [employer] [facility]ITALNob[facility]asticsM[facility] [place], [place] ??[address] ANA REYES DO,MPH 04/27/2019 9:17 AM CDT 04/27/2019 9:19 AM CDT Judah Norton MD LAB - URINE CHEMISTR Y ORDERABLES [facility] [address] [place] [address] * XR FOOT RIGHT 3VW OR MORE [...] CONRAD GONZALES MD on04/26/2019 2:11 PM . Juadh Norton MD DIAGNOSTIC IMAGING O RDERABLES * XR SI JOINTS 3VW OR MORE (04/26/2019 1:21 PM CDT) Anatomical Region Laterality Modality Pelvis, Lower Extremity [facility] 04/26/2019 1:20 PM CDT Impressions [...] Yellow Straw, Yellow, Colorless 04/26/2019 1:31 PM [facility] Clarity UA Slt Cloudy Clear, Slt Cloudy 04/26/2019 1:31 PM [facility] Specific [place] UA 1.013 1.005 - 1.030 04/26/2019 1:31 PM [facility] pH UA 5.0 5.0 - 8.0 pH 04/26/2019 1:31 PM [facility] Protein UA 2+(A) Negative mg/dL 04/26/2019 1:31 PM [facility] Glucose UA 1+(A) Negative mg/dL 04/26/2019 1:31 PM [facility] Ketone UA Negative Negative mg/dL 04/26/2019 1:31 PM [facility] Bilirubin UA Negative Negative mg/dL 04/26/2019 1:31 PM [facility] Blood UA Negative Negative 04/26/2019 1:31 PM [facility] Nitrite UA Negative Negative 04/26/2019 1:31 PM [facility] Leukocyte Esterase Negative Negative 04/26/2019 1:31 PM CDT [facility] Urobilinogen UA Negative Negative mg/dL 04/26/2019 1:31 PM CDT [facility] RBC UA 0-2 None Seen, 0-2, 3-5 /HPF 04/26/2019 1:31 PM CDT [facility] WBC UA 0-5 None Seen, 0-5 /HPF 04/26/2019 1:31 PM CDT [facility] Squamous Epithelial Cells UA 0-2 None Seen, 0-2 /HPF 04/26/2019 1:31 PM CDT [facility] Mucus UA 1+ None, 1+ /LPF 04/26/2019 1:31 PM CDT [facility] Hyaline Casts UA 11-20(A) None Seen, 0-2 /LPF 04/26/2019 1:31 PM CDT [facility] Urine URINE SPECIMEN OBTAINED BY CLEAN CATCH PROCEDURE / Unknown Collection / Unknown 04/26/2019 12:42 PM CDT 04/26/2019 1:18 PM CDT Narrative [facility] - 04/26/2019 1:31 PM CDT Judah Norton MD LAB - URINALYSIS ORD ERABLES [facility] [address] [place] [address] * CYCLIC CITRUL PEPTIDE ANTIBODY IGG/IGA (CCP) (04/26/2019 12:42 PM CDT) CCP Antibodies IgG/IgA 17 0 - 19 units 04/29/2019 9:06 PM CDT [facility] ([facility]) Comment: ?Negative ? <20 ?Weak positive ?20 - 39 ?Moderate positive ??40 - 59 ?Strong positive ?>59 Blood BLOOD SPECIMEN / Unknown Lab Venipuncture / Unknown 04/26/2019 12:42 PM CDT 04/26/2019 1:18 PM CDT Narrative [facility] ([facility]) - 04/29/2019 9:06 PM CDT Performed at: ??01 - [address] ??[id number] Tax Lawyer: Con Grimaldo MD, Phone: ??[phone] Judah Norton MD LAB - SEROLOGY ORDER ROVERTO Performing Organization Address City/[facility]/ZIP Co de Phone Number [facility] ([facility]) [address] [phone] * RHEUMATOID FACTOR BLOOD QUANTITATIVE (04/26/2019 12:42 PM CDT) Rheumatoid Factor <15 <30 IU/mL 04/26/2019 2:34 PM CDT [facility] Blood BLOOD SPECIMEN / Unknown Lab Venipuncture / Unknown 04/26/2019 12:42 PM CDT 04/26/2019 1:18 PM CDT Judah Norton MD LAB - CHEMISTRY SUSANNAH LEONE Performing Organization Address [facility] Co de Phone Number [address] [phone] * C-REACTIVE PROTEIN (04/26/2019 12:42 PM CDT) C-Reactive Protein <0.5 <=0.5 mg/dL 04/26/2019 2:21 PM CDT [facility] Blood BLOOD SPECIMEN / Unknown Lab Venipuncture / Unknown 04/26/2019 12:42 PM CDT 04/26/2019 1:19 PM CDT Judah Norton MD LAB - CHEMISTRY SUSANNAH LEONE Performing Organization Address City/[facility]/ZIP Co de Phone Number [address] [place] [phone] * SHAWN BLOOD SCREEN W/REFLEX TITER (04/26/2019 12:42 PM CDT) SHAWN Negative 04/27/2019 3:07 PM CDT [facility] ([facility]) Comment: ? Negative ?? <1:80 ? Borderline ??1:80 ? Positive ?? >1:80 Blood BLOOD SPECIMEN / Unknown Lab Venipuncture / Unknown 04/26/2019 12:42 PM CDT 04/26/2019 1:18 PM CDT Narrative [facility] ([facility]) - 04/27/2019 3:07 PM CDT Performed at: ??01 - [facility] [address] [place], [place] ??[id number] Tax Lawyer: Mehdi Del Angel PhD, Phone: ??[phone] Judah Norton MD LAB - CHEMISTRY SUSANNAH LEONE [facility] ([facility]) [address] [place] [address] * SS-B (SJOGREN'S) ANTIBODY (04/26/2019 12:42 PM CDT) SS-B LA Antibody 2.8 0.0 - 19.9 Units 04/30/2019 9:45 AM CDT [facility] Comment: JOSE ENRIQUE Antibody Numeric Result Interpretation: ?<20.0 Units: ??Negative ?20.0 - 39.0 Units: ??Weakly Positive ?>39.0 Units: ??Positive ? Blood BLOOD SPECIMEN / Unknown Lab Venipuncture / Unknown 04/26/2019 12:42 PM CDT 04/26/2019 1:19 PM CDT Judah Norton MD LAB - CHEMISTRY SUSANNAH LEONE Performing Organization Address [facility] Co de Phone Number [facility] [address] [phone] * SS-A (SJOGREN'S) ANTIBODY (04/26/2019 12:42 PM CDT) SS-A (Ro) Antibody 2.7 0.0 - 19.9 Units 04/30/2019 9:45 AM CDT [facility] Comment: JOSE ENRIQUE Antibody Numeric Result Interpretation: ?<20.0 Units: ??Negative ?20.0 - 39.0 Units: ??Weakly Positive ?>39.0 Units: ??Positive ? Blood BLOOD SPECIMEN / Unknown Lab Venipuncture / Unknown 04/26/2019 12:42 PM CDT 04/26/2019 1:19 PM CDT Judah Norton MD LAB - CHEMISTRY SUSANNAH LEONE Performing Organization Address [facility] de Phone Number [address] [phone] * ALDOLASE (04/26/2019 12:42 PM CDT) Aldolase 6.9 3.3 - 10.3 U/L 04/29/2019 3:08 PM CDT [facility] ([facility]) Blood BLOOD SPECIMEN / Unknown Lab Venipuncture / Unknown 04/26/2019 12:42 PM CDT 04/26/2019 1:18 PM CDT Narrative [facility] ([facility]) - 04/29/2019 3:08 PM CDT Performed at: ??01 - [facility] [place] [address] [facility], [place], [place] ??[id number] Tax Lawyer: Mehdi Del Angel PhD, Phone: ??[phone] Judah Norton MD LAB - CHEMISTRY SUSANNAH LEONE Performing Organization Address City/[facility]/ZIP Co de Phone Number [facility] ([facility]) [address] [place] [address] * (ABNORMAL) ERYTHROCYTE SEDIMENTATION RATE (04/26/2019 12:42 PM CDT) Erythrocyte Sedimentation Rate Westergren 34(H) 0 - 20 MM/HR 04/26/2019 1:31 PM CDT [facility] Blood BLOOD SPECIMEN / Unknown Lab Venipuncture / Unknown 04/26/2019 12:42 PM CDT 04/26/2019 1:19 PM CDT Judah Norton MD LAB - HEMATOLOGY HUAN WALTON [address] [phone] * (ABNORMAL) LDH BLOOD (04/26/2019 12:42 PM CDT) Pathologist [facility] LDH Total 268(H) 125 - 243 Units/L 04/26/2019 1:43 PM CDT [facility] Blood BLOOD SPECIMEN / Unknown Lab Venipuncture / Unknown 04/26/2019 12:42 PM CDT 04/26/2019 1:19 PM CDT Judah Norton MD LAB - CHEMISTRY SUSANNAH LEONE Performing Organization Address City/[facility]/ZIP Co de Phone Number [address] [phone] * (ABNORMAL) CK BLOOD (04/26/2019 12:42 PM CDT) CK Total 280(H) 30 - 200 Units/L 04/26/2019 1:43 PM CDT [facility] Blood BLOOD SPECIMEN / Unknown Lab Venipuncture / Unknown 04/26/2019 12:42 PM CDT 04/26/2019 1:19 PM CDT Judah Norton MD LAB - CHEMISTRY ORDIsaias LEONE [address] [phone] * CARDIAC PROCEDURE ORDER (11/27/2018 1:35 AM [...] - 106 mg/dL 11/26/2018 10:39 AM CDT [facility] Specimen Type UNKNOWN SAMPLE TYPE 11/26/2018 10:39 AM CDT [facility] Blood BLOOD SPECIMEN / Unknown 11/23/2018 2:11 PM CDT 11/26/2018 10:39 AM CDT Francisco Luque MD LAB - POINT OF CARE ORDERABLES [facility] [address] [phone] * (ABNORMAL) BASIC METABOLIC PANEL (CALCIUM TOTAL) (11/23/2018 3:25 AM CDT) Only the most recent of2 resultswithin the time period is included. Glucose 195(H) 74 - 106 mg/dL 11/23/2018 5:10 AM CDT [facility] Sodium 135(L) 136 - 145 mmol/L 11/23/2018 5:10 AM CDT [facility] Potassium 3.8 3.5 - 5.1 mmol/L 11/23/2018 5:10 AM CDT [facility] Chloride 104 98 - 107 mmol/L 11/23/2018 5:10 AM CDT [facility] CO2 23 23 - 31 mmol/L 11/23/2018 5:10 AM CDT [facility] Calcium 8.3(L) 8.4 - 10.2 mg/dL 11/23/2018 5:10 AM CDT [facility] Anion Gap 8 8 - 16 mmol/L 11/23/2018 5:10 AM CDT [facility] BUN 56(H) 8.4 - 25.7 mg/dL 11/23/2018 5:10 AM CDT [facility] Creatinine 2.74(H) 0.73 - 1.18 mg/dL 11/23/2018 5:10 AM CDT [facility] eGFR by MDRD 25(L) >60 mL/min/1.7 3m2 11/23/2018 5:10 AM CDT [facility] eGFR by MDRD 30(L) >60 mL/min/1.7 3m2 11/23/2018 5:10 AM CDT [facility] Blood BLOOD SPECIMEN / Unknown Venipuncture / Unknown 11/23/2018 3:25 AM CDT 11/23/2018 4:37 AM CDT Francisco Luque MD LAB - CHEMISTRY [facility] Organization Address City/State/ZIP Co de Phone Number [facility] [address] [place] [address] * CARDIAC CATH PROCEDURE (11/22/2018 12:00 PM CDT) 11/22/2018 12:0 0 PM CDT Narrative Procedure Note Francisco Luque MD - 11/23/2018 3:23 AM CDT [facility] CARDIAC CATHETERIZATION PATIENT: JUVENAL GARVIN MR#: [id number] ADMIT DATE: 11/22/2018 CSN: [id number] PROCEDURE DATE: 11/22/2018 :1970 PHYSICIAN: Francisco Luque Jr., MD ROOM: [facility] REFERRING PHYSICIAN: Francisco Luque Jr., MD PROCEDURE [...] sheath wasplaced in right femoral artery. A 5-Macanese #4 Kranthi left coronary catheterwas advanced in the left coronary ostium and left coronary arteriograms were performed in multiple projections. This catheter was removed and exchangedfor 5-Macanese #4 Kranthi right coronary catheter, was advanced in the right coronary ostium. Right coronary arteriography was performed in multiple projections. This catheter was removed. The decision was made to proceedwith intervention and therefore no left ventriculogram was performed to avoid excess dye in this patient with severe kidney disease. The arterial sheathwas exchanged for 6-Macanese sheath followed by advancement of a 6-Macanese #4Judkins right guide to the right coronary [...] descending artery. Injection of contrast reveals an % stenosis and mid 90% stenosis and a [...] gentleman. FRANCISCO LUQUE JR., MD RPR/MODL #: [id number] cc: Francisco Luque Jr., MD MEDICAL/SURGICAL CARDIAC [...] [facility] NG ORDERABLES Care Teams Traveling Inventory Associate Relationship Specialty Start Date End Date Aditya Castro Update Information PCP - General 03/06/19
--- OUTSIDE RECORDS SUMMARY | 2024-08-24 04:28 | XMS_ITS | Encounter Summary ---
Author Organization [facility] Address [address] [facility] [place] [address] Care Team Providers Care Toolsmith Name Role Phone Aditya Castro Primary Care Provider Unavailab le Reason for Visit * Radiology Services (Routine) - Closed Specialty Diagnoses / Procedures Referred By Aguilar t Referred To Contact Diagnoses Pre-transplant evaluation for kidney transplant Procedures ECHO STRESS TEST W DOBUTAMINE Glenny Martin MD [address] [place] [address] [facility]ney Transplant [address] [place] [address] Referral ID Status Reason Start Date Expiration Date Visits Re quested Visits Authorized [id number] Closed 05/14/2020 08/13/2020 1 1 Encounter Details Date Type Department Care Team (Late st Contact Info) Description 05/14/2020 7:37 AM CDT - 05/14/2020 7:54 AM T Hospital Encounter [facility] ECHO [address] [place] [phone] Glenny Martin MD [address] [facility] [place] [address] Discharge Disposition: Home or Self [...] 12 hours as needed 01/25/2019 epoetin (PROCRIT) 76635 UNIT/ML injection Inject subcutaneously every 14 days ezetimibe (ZETIA) 10 MG tablet Take 10 mg by mouth once daily febuxostat (ULORIC) 40 MG tablet Take 40 mg by mouth 02/25/2019 ferrous sulfate EC (FERROUS SULFATE) 324 (65 Fe) MG tablet Take 324 mg by mouth once daily 02/21/2019 fluticasone propionate (FLONASE) 50 MCG/ACT nasal spray [place] 1 spray into each nostril once daily [...] test strip 04/17/2019 vitamin D, ergocalciferol, (DRISDOL) 43249 units capsule Take 50,000 Units by mouth [...] discharge the patient per Dr. Gaurang Castro, Solar Crew Member. Patient has no complaints. Denies chest pain [...] mL documented in this encounter Care Teams Toolsmith Relationship Specialty Start Date End Date Aditya Castro Update Information PCP - General 03/06/19 documented as of this encounter
--- OUTSIDE RECORDS SUMMARY | 2024-08-24 04:28 | XMS_ITS | Encounter Summary ---
Author Organization [facility] Address [address] [facility] [place] [address] Care Team Providers Care Drone Pilot Name Role Phone Aditya Castro Primary Care Provider Unavailab le Reason for Visit * Reason Comments Refill Request Encounter Details Date Type Department Care Team (Late st Contact Info) Description 10/11/2019 [facility] [address] [place] [address] Girish Vasques MD [address] [facility] [address] [place] [address] Refill Request Social History Tobacco Use Types [...] LV 04/11/19 No follow up Anali Connelly CTOR OF HEALTH CARE MARKETING documented in this encounter Plan of Treatment Not on file documented as of this encounter Visit Diagnoses Diagnosis Other seborrheic dermatitis documented in this encounter Care Teams Drone Pilot Relationship Specialty Start Date End Date Aditya Castro Update Information PCP - General 03/06/19 documented as of this encounter
--- OUTSIDE RECORDS SUMMARY | 2024-08-24 04:28 | XMS_ITS | Encounter Summary ---
Author Organization [facility] Address [address] [facility] [place] [address] Care Team Providers Care Core Loader Name Role Phone Aditya Castro Primary Care Provider Unavailab le Reason for Referral * Radiology Services (Routine) - Closed Specialty Diagnoses / Procedures Referred By Aguilar lora Referred To Contact Diagnoses Pre-transplant evaluation for kidney transplant Procedures CT ABDOMEN AND PELVIS NON IV CONTRAST Glenny Martin MD [address] [place] [address] [facility] Transplant [address] [place] [phone] Referral ID Status Reason Start Date Expiration Date Visits Re quested Visits Authorized [id number] Closed 05/14/2020 08/13/2020 1 1 Reason for Visit * Radiology Services (Routine) - Closed Specialty Diagnoses / Procedures Referred By Aguilar lora Referred To Contact Diagnoses Pre-transplant evaluation for kidney transplant Procedures CT ABDOMEN AND PELVIS NON IV CONTRAST Glenny Martin MD [address] [place] [address] [facility]plant [address] [place] [phone] Referral ID Status Reason Start Date Expiration Date Visits Re quested Visits Authorized [id number] Closed 05/14/2020 08/13/2020 1 1 Encounter Details Date Type Department Care Team (Late st Contact Info) Description 05/14/2020 10:25 AM CDT - 05/14/2020 10:39 AM CDT Hospital Encounter [facility] CAT SCAN [address] [place] [address] Glenny Martin MD [address] [facility] [place] [address] Discharge Disposition: Home or Self Care Social [...] 12 hours as needed 01/25/2019 epoetin (PROCRIT) 12367 UNIT/ML injection Inject subcutaneously every 14 days ezetimibe (ZETIA) 10 MG tablet Take 10 mg by mouth once daily febuxostat (ULORIC) 40 MG tablet Take 40 mg by mouth 02/25/2019 ferrous sulfate EC (FERROUS SULFATE) 324 (65 Fe) MG tablet Take 324 mg by mouth once daily 02/21/2019 fluticasone propionate (FLONASE) 50 MCG/ACT nasal spray [place] 1 spray into each nostril once [...] test strip 04/17/2019 vitamin D, ergocalciferol, (DRISDOL) 64746 units capsule Take 50,000 Units by mouth [...] annulus calcifications. Dictated by Ash Moreira MD (vice president risk management). I, Dr. HANNAH SPENCE have personally reviewed [...] annulus calcifications. Dictated by Ash Moreira MD (vice president risk management). I, Dr. HANNAH SPENCE have personally reviewed and interpreted this examination/study. This report was electronically signed by HANNAH SPENCE on 05/14/20205:03 PM . Glenny Martin MD CT ORDERABLES documented in this encounter Visit Diagnoses Diagnosis Pre-transplant evaluation for kidney transplant documented in this encounter Care Teams Core Loader Relationship Specialty Start Date End Date Aditya Castro Update Information PCP - General 03/06/19 documented as of this encounter
--- OUTSIDE RECORDS SUMMARY | 2024-08-24 04:28 | XMS_ITS | Encounter Summary ---
Author Organization [facility] Address [address] [facility] [place] [address] Care Team Providers Care Music Cataloguer Name Role Phone Aditya Castro Primary Care Provider Unavailab le Encounter Details Date Type Department Care Team (Late st Contact Info) Description 05/14/2020 7:26 AM CDT Hospital Encounter [facility] DIAGNOSTIC RAD OP [address] [place] [phone] Glenny Martin MD [facility] [place] [address] Discharge Disposition: Home or Self Care Social [...] 12 hours as needed 01/25/2019 epoetin (PROCRIT) 54620 UNIT/ML injection Inject subcutaneously every 14 days ezetimibe (ZETIA) 10 MG tablet Take 10 mg by mouth once daily febuxostat (ULORIC) 40 MG tablet Take 40 mg by mouth 02/25/2019 ferrous sulfate EC (FERROUS SULFATE) 324 (65 Fe) MG tablet Take 324 mg by mouth once daily 02/21/2019 fluticasone propionate (FLONASE) 50 MCG/ACT nasal spray [place] 1 spray into each nostril once daily [...] test strip 04/17/2019 vitamin D, ergocalciferol, (DRISDOL) 85897 units capsule Take 50,000 Units by mouth [...] is normal. Dictated by Kristie Bee MD (associate professor of radiology). I, Dr. CONRAD GONZALES MD have personally [...] is normal. Dictated by Kristie Bee MD (associate professor of radiology). I, Dr. CONRAD GONZALES MD have personally reviewed and interpreted this examination/study. This report was electronically signed by CONRAD GONZALES MD on05/15/2020 7:49 AM . Glenny Martin MD DIAGNOSTIC IMAG ING ORDERABLES documented in this encounter Visit Diagnoses Diagnosis Pre-transplant evaluation for kidney transplant documented in this encounter Care Teams Music Cataloguer Relationship Specialty Start Date End Date Aditya Castro Update Information PCP - General 03/06/19 documented as of this encounter
--- OUTSIDE RECORDS SUMMARY | 2024-08-24 04:28 | XMS_ITS | Encounter Summary ---
Author Organization [facility] Address [address] [facility] [address] Care Team Providers Care Eye Specialist Name Role Phone Aditya Castro Primary Care Provider Unavailab le Encounter Details Date Type Department Care Team (Late st Contact Info) Description 09/30/2020 Orders Only [facility] - COVID Vaccine [address] [place] [phone] Carrington Leos MD [address] [place] [address] Need for vaccination Social History Tobacco Use [...] disease documented in this encounter Care Teams Eye Specialist Relationship Specialty Start Date End Date Aditya Castro Update Information PCP - General 03/06/19 documented as of this encounter
--- OUTSIDE RECORDS SUMMARY | 2024-08-24 04:28 | XMS_ITS | Encounter Summary ---
Author Organization [facility] Address [address] [facility] [place] [address] Care Team Providers Care Data Center Manager Name Role Phone Aditya Castro Primary Care Provider Unavailab le Reason for Visit * Reason Comments Kidney Transplant Evaluation Encounter Details Date Type Department Care Team (Late st Contact Info) Description 03/25/2020 Telephone [facility] TRANSPLANT [address] [place] [address] Carey Chavez Kidney Transplant Evaluation [...] on filedocumented in this encounter Care Teams Data Center Manager Relationship Specialty Start Date End Date Aditya Castro Update Information PCP - General 03/06/19 documented as of this encounter
--- OUTSIDE RECORDS SUMMARY | 2024-08-24 04:28 | XMS_ITS | Encounter Summary ---
Author Organization [facility] Address [address] [facility] [place] [address] Care Team Providers Care Tungsten Refiner Name Role Phone Aditya Castro Primary Care Provider Unavailab le Reason for Visit * Reason Comments Kidney Transplant Evaluation Encounter Details Date Type Department Care Team (Late st Contact Info) Description 07/15/2020 Telephone [facility] TR[facility] [address] [place] [address] Anali Merino, RN Kidney Transplant [...] like for pt to reach out to [facility] bariatric program and pt notified to keep me up to date on his progress if he choices one of their programs. Pt can also follow up with our RD as well if needed for assistance. Pt notified team has given him a weight loss goal of 250 lbs to be re referred. Pt states understanding. R PRESS TENDER documented in this encounter Plan of Treatment Not on file documented as of this encounter Visit Diagnoses Not on filedocumented in this encounter Care Teams Tungsten Refiner Relationship Specialty Start Date End Date Aditya Castro Update Information PCP - General 03/06/19 documented as of this encounter
--- OUTSIDE RECORDS SUMMARY | 2024-08-24 04:28 | XMS_ITS | Encounter Summary ---
Author Organization [facility] Address [address] [facility] [place] [address] Care Team Providers Care Dot Etcher Apprentice Name Role Phone Aditya Castro Primary Care Provider Unavailab le Encounter Details Date Type Department Care Team (Late st Contact Info) Description 05/14/2020 7:26 AM CDT Hospital Encounter [facility] DIAGNOSTIC RAD OP [address] [place] [phone] Glenny Martin MD [facility] [place] [address] Discharge Disposition: Home or Self Care Social [...] 12 hours as needed 01/25/2019 epoetin (PROCRIT) 56807 UNIT/ML injection Inject subcutaneously every 14 days ezetimibe (ZETIA) 10 MG tablet Take 10 mg by mouth once daily febuxostat (ULORIC) 40 MG tablet Take 40 mg by mouth 02/25/2019 ferrous sulfate EC (FERROUS SULFATE) 324 (65 Fe) MG tablet Take 324 mg by mouth once daily 02/21/2019 fluticasone propionate (FLONASE) 50 MCG/ACT nasal spray [place] 1 spray into each nostril once daily [...] test strip 04/17/2019 vitamin D, ergocalciferol, (DRISDOL) 06847 units capsule Take 50,000 Units by mouth [...] abscess identified. Dictated by Kristie Bee MD (market president). I, Dr. CONRAD GONZALES MD have personally reviewed and interpreted this examination/study. This report was electronically signed by CONRAD OGNZALES MD ??on 05/15/2020 7:51 AM . Narrative [...] abscess identified. Dictated by Kristie Bee MD (market president). I, Dr. CONRAD GONZALES MD have personally reviewed and interpreted this examination/study. This report was electronically signed by CONRAD GONZALES MD on05/15/2020 7:51 AM . Glenny Martin MD DIAGNOSTIC IMAG ING ORDERABLES documented in this encounter Visit Diagnoses Diagnosis Pre-transplant evaluation for kidney transplant documented in this encounter Care Teams Dot Etcher Apprentice Relationship Specialty Start Date End Date Aditya Castro Update Information PCP - General 03/06/19 documented as of this encounter
--- OUTSIDE RECORDS SUMMARY | 2024-08-24 04:28 | XMS_ITS | Encounter Summary ---
Author Organization [facility] Address [address] [facility] [place] [address] Care Team Providers Care Superannuation Funds Manager Name Role Phone Aditya Castro Primary Care Provider Unavailab le Reason for Visit * Reason Comments Kidney Transplant Evaluation Encounter Details Date Type Department Care Team (Late st Contact Info) Description 07/10/2020 Telephone [facility] TRANSPLANT [address] [place] [phone] Girish Farmer Kidney Transplant Evaluation Social History [...] on filedocumented in this encounter Care Teams Superannuation Funds Manager Relationship Specialty Start Date End Date Aditya Castro Update Information PCP - General 03/06/19 documented as of this encounter
--- OUTSIDE RECORDS SUMMARY | 2024-08-24 04:28 | XMS_ITS | Encounter Summary ---
Author Organization [facility] Address [address] [facility] [place] [address] Care Team Providers Care Tenterer Name Role Phone Aditya Castro Primary Care Provider Unavailab le Reason for Visit * Reason Comments Kidney Transplant Evaluation Encounter Details Date Type Department Care Team (Late st Contact Info) Description 05/12/2020 Telephone [facility] TRANSPLANT [address] [place] [phone] Magail Ramos Kidney Transplant Evaluation Social History Tobacco [...] on filedocumented in this encounter Care Teams Tenterer Relationship Specialty Start Date End Date Aditya Castro Update Information PCP - General 03/06/19 documented as of this encounter
--- OUTSIDE RECORDS SUMMARY | 2024-08-24 04:28 | XMS_ITS | Encounter Summary ---
Author Organization [facility] Address [address] [facility] [place] [address] Care Team Providers Care Tar And Ammonia Pump Operator Name Role Phone Aditya Castro Primary Care Provider Unavailab le Encounter Details Date Type Department Care Team (Late st Contact Info) Description 11/13/2020 Orders Only [facility] - COVID Vaccine [address] [place] [phone] Carrington Leos MD [address] [place] [address] Need for vaccination Social History Tobacco Use [...] disease documented in this encounter Care Teams Tar And Ammonia Pump Operator Relationship Specialty Start Date End Date Aditya Castro Update Information PCP - General 03/06/19 documented as of this encounter
--- OUTSIDE RECORDS SUMMARY | 2024-08-24 04:29 | XMS_ITS ---
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
--- OUTSIDE RECORDS SUMMARY | 2024-08-24 04:29 | XMS_ITS | Encounter Summary ---
Author Organization [facility] Address [address] [facility] [place] [address] Care Team Providers Care Medical Reviewer Name Role Phone Jhonatan Bellamy MD Primary Care Provider [phone] Encounter Details Date Type Department Care Team (Latest Contact Info) Description 03/25/2015 5:00 PM CDT - 03/25/2015 11:59 PM CDT Hospital Encounter [facility] [address] [place] [address] Yamilet Valerio PA [address] [place] [address] Discharge Disposition: Home or Self [...] Region Laterality Modality Pelvis, Lower Extremity [facility] Imaging 03/25/2015 8:09 PM CDT Impressions 03/25/2015 [...] unspecified documented in this encounter Care Teams Medical Reviewer Relationship Specialty Start Date End Date Jhonatan Bellamy MD [address] [place], [place] [id number] PCP - General Family Medicine 03/25/15 03/05/19 documented as of this encounter
--- OUTSIDE RECORDS SUMMARY | 2024-08-24 04:29 | XMS_ITS | Encounter Summary ---
Author Organization [facility] Address [address], [place] [address] Phone Care Team Providers Care Media Center Specialist Name Role Phone Unavailable Primary Care Provider Unavailabl e Reason for Visit * Reason Comments Med Refill Encounter Details Date Type Department Care Team (Late st Contact Info) Description 02/13/2019 Refill [facility] [address] [address] Leandro Reyes MD [address] [address] Social History Tobacco Use Types [...]
--- OUTSIDE RECORDS SUMMARY | 2024-08-24 04:29 | XMS_ITS | Encounter Summary ---
Author Organization [facility] Address [address] [place] [address] Care Team Providers Care Child And Adolescent Psychologist Name Role Phone Matthew Aditya Ellison Primary Care Provider Unavailab le Reason for Visit * Reason Comments Gout pain-low back, hips, knees, shoulders, hands and feet Encounter Details Date Type Department Care Team (Late st Contact Info) Description 04/29/2019 12:30 PM CDT Office Visit [facility]ology [address] [place] [address] Judah Norton MD [address] [place] [id number] Gout, unspecified cause, unspecified chronicity, unspecified site [...] desires. Carlton Delarosa MD, FACP, FAAP, MACR Band Machine Operator and Pediatric Rheumatology Professor of Internal Medicine,Pediatrics, and Molecular Immunology [facility] documented in this encounter Plan of Treatment Not on file documented as of this encounter Visit Diagnoses Diagnosis Gout, unspecified cause, unspecified chronicity, unspecified site- Primary documented in this encounter Care Teams Child And Adolescent Psychologist Relationship Specialty Start Date End Date Aditya Castro Update Information PCP - General 03/06/19 documented as of this encounter
--- OUTSIDE RECORDS SUMMARY | 2024-08-24 04:29 | XMS_ITS | Encounter Summary ---
Author Organization [facility] Address [address] [place] [address] Care Team Providers Care Curer Foam Rubber Name Role Phone Aditya Castro Primary Care Provider Unavailab le Reason for Visit * Reason Comments Establish Care Arthritis and Gout Encounter Details Date Type Department Care Team (Latest Contact Info) Description 03/07/2019 8:30 AM CDT Office Visit [facility] Rheumatology [address] [place] [address] Carlton Delarosa MD [address] [place] [address] Gout, unspecified cause, unspecified chronicity, [...] At the Doctor's Office Building at [address], [address], call [phone] If you need a refill request, have your pharmacy fax a request to [phone] If you need to leave a message for Dr. Norton, you can send her an electronic message via [employer] a voicemail at [phone]. Her office FAX number is [phone]. For after hours emergency only, you can call the [facility] anchor operator at [phone] and ask for the Crm Developer astronomy teacher to be paged. documented in this encounter [...] note. Carlton Delarosa MD, FACP, FAAP, MACR Grocery Packer and Pediatric Rheumatology Professor of Internal Medicine,Pediatrics, and Molecular Immunology [facility] documented in this encounter Consult Notes * Judah Norton MD - 03/07/2019 8:49 AM CDT [facility] Rheumatology Consult H&P PCP: Aditya Castro HPI: 48 year old male with DM, HTN ,HLD , CKD stage IV, and other co morbidities who is seen in clinic today as a referral for gout and arthritis. Patient was previously evaluated by rheumatology at [place] and was told he had gout and [...] No Dry Mouth [x] Yes [] No [place] Pain [x] Yes [] No Oral Ulcers [...] as needed ??? vitamin D, ergocalciferol, (DRISDOL) 33186 units capsule Take 50,000 Units by mouth [...] negative C4 78, C3 140 SHAWN, Chiu, CINEMA OPERATOR, dsDNA, SSA, SSB negative [place]-1 negative HLA-B27 [...] Region Laterality Modality Pelvis, Lower Extremity Radiogra [facility] Imaging 04/26/2019 1:20 PM CDT Impressions [...] 19 units 04/29/2019 9:06 PM CDT [facility] ([facility]) Comment: ?Negative ? <20 ?Weak positive ?20 - 39 ?Moderate positive ??40 - 59 ?Strong positive ?>59 Blood BLOOD SPECIMEN / Unknown Lab Venipuncture / Unknown 04/26/2019 12:42 PM CDT 04/26/2019 1:18 PM CDT Narrative [facility] ([facility]) - 04/29/2019 9:06 PM CDT Performed at: ??01 - [address] ??[id number] Meat Cooler: Con Grimaldo MD, Phone: ??[phone] Judah Norton MD LAB - SEROLOGY ORDER [facility] ([facility]) [address] [place] [address] * RHEUMATOID FACTOR BLOOD QUANTITATIVE (04/26/2019 12:42 PM CDT) Rheumatoid Factor <15 <30 IU/mL 04/26/2019 2:34 PM CDT [facility] Blood BLOOD SPECIMEN / Unknown Lab Venipuncture / Unknown 04/26/2019 12:42 PM CDT 04/26/2019 1:18 PM CDT Judah Norton MD LAB - CHEMISTRY SUSANNAH LEONE Performing Organization Address City/[facility]/ZIP Co de Phone Number [address] [phone] * SS-B (SJOGREN'S) ANTIBODY (04/26/2019 12:42 PM CDT) SS-B LA Antibody 2.8 0.0 - 19.9 Units 04/30/2019 9:45 AM CDT [facility] Comment: JOSE ENRIQUE Antibody Numeric Result Interpretation: ?<20.0 Units: ??Negative ?20.0 - 39.0 Units: ??Weakly Positive ?>39.0 Units: ??Positive ? Blood BLOOD SPECIMEN / Unknown Lab Venipuncture / Unknown 04/26/2019 12:42 PM CDT 04/26/2019 1:19 PM CDT Judah Norton MD LAB - CHEMISTRY SUSANNAH LEONE [address] [phone] * SS-A (SJOGREN'S) ANTIBODY (04/26/2019 12:42 PM CDT) SS-A (Ro) Antibody 2.7 0.0 - 19.9 Units 04/30/2019 9:45 AM CDT [facility] Comment: JOSE ENRIQUE Antibody Numeric Result Interpretation: ?<20.0 Units: ??Negative ?20.0 - 39.0 Units: ??Weakly Positive ?>39.0 Units: ??Positive ? Blood BLOOD SPECIMEN / Unknown Lab Venipuncture / Unknown 04/26/2019 12:42 PM CDT 04/26/2019 1:19 PM CDT Judah Norton MD LAB - CHEMISTRY SUSANNAH LEONE Performing Organization Address [facility] de Phone Number [address] [phone] * SHAWN BLOOD SCREEN W/REFLEX TITER (04/26/2019 12:42 PM CDT) SHAWN Negative 04/27/2019 3:07 PM CDT [facility] ([facility]) Comment: ? Negative ?? <1:80 ? Borderline ??1:80 ? Positive ?? >1:80 Blood BLOOD SPECIMEN / Unknown Lab Venipuncture / Unknown 04/26/2019 12:42 PM CDT 04/26/2019 1:18 PM CDT Narrative [facility] ([facility]) - 04/27/2019 3:07 PM CDT Performed at: ??01 - [facility] [address] [facility] [place], [place] ??[id number] Meat Cooler: Mehdi Del Angel PhD, Phone: ??[phone] Juadh Norton MD LAB - CHEMISTRY SUSANNAH LEONE Performing Organization Address [facility] Co de Phone Number [facility] ([facility]) [address] [place] [address] * (ABNORMAL) VITAMIN D 25-HYDROXY (04/26/2019 12:42 PM CDT) [facility] Signature Vitamin D, 25 Hydroxy 15.1(L) See comment: ng/mL 04/26/2019 2:25 PM CDT [facility] Comment: The recommendations for 25-Hydroxy [...] Norton MD LAB - CHEMISTRY SUSANNAH LEONE [facility] [address] [phone] * (ABNORMAL) URINALYSIS W/MICROSCOPIC NO CULTURE (04/26/2019 12:42 PM [facility]) Color UA Yellow Straw, Yellow, Colorless 04/26/2019 1:31 PM [facility] Clarity UA Slt Cloudy Clear, Slt Cloudy 04/26/2019 1:31 PM [facility] Specific [place] UA 1.013 1.005 - 1.030 04/26/2019 1:31 PM [facility] pH UA 5.0 5.0 - 8.0 pH 04/26/2019 1:31 PM [facility] Protein UA 2+(A) Negative mg/dL 04/26/2019 1:31 PM [facility] Glucose UA 1+(A) Negative mg/dL 04/26/2019 1:31 PM [facility] Ketone UA Negative Negative mg/dL 04/26/2019 1:31 PM [facility] Bilirubin UA Negative Negative mg/dL 04/26/2019 1:31 PM [facility] Blood UA Negative Negative 04/26/2019 1:31 PM [facility] Nitrite UA Negative Negative 04/26/2019 1:31 PM [facility] Leukocyte Esterase Negative Negative 04/26/2019 1:31 PM [facility] Urobilinogen UA Negative Negative mg/dL 04/26/2019 1:31 PM [facility] RBC UA 0-2 None Seen, 0-2, 3-5 /HPF 04/26/2019 1:31 PM [facility] WBC UA 0-5 None Seen, 0-5 /HPF 04/26/2019 1:31 PM [facility] Squamous Epithelial Cells UA 0-2 None Seen, 0-2 /HPF 04/26/2019 1:31 PM [facility] Mucus UA 1+ None, 1+ /LPF 04/26/2019 1:31 PM [facility] Hyaline Casts UA 11-20(A) None Seen, 0-2 /LPF 04/26/2019 1:31 PM [facility] Urine URINE SPECIMEN OBTAINED BY CLEAN CATCH PROCEDURE / Unknown Collection / Unknown 04/26/2019 12:42 PM CDT 04/26/2019 1:18 PM CDT Narrative [facility] - 04/26/2019 1:31 PM CDT Judah Norton MD LAB - URINALYSIS ORD ERABLES Performing Organization Address [facility]/ZIP Co de Phone Number [address] [phone] * (ABNORMAL) ERYTHROCYTE SEDIMENTATION RATE (04/26/2019 12:42 PM CDT) Erythrocyte Sedimentation Rate Westergren 34(H) 0 - 20 MM/HR 04/26/2019 1:31 PM CDT [facility] Blood BLOOD SPECIMEN / Unknown Lab Venipuncture / Unknown 04/26/2019 12:42 PM CDT 04/26/2019 1:19 PM CDT Judah Norton MD LAB - HEMATOLOGY ORD ERABLES Performing Organization Address [facility]/ZIP Co de Phone Number [address] [phone] * C-REACTIVE PROTEIN (04/26/2019 12:42 PM CDT) C-Reactive Protein <0.5 <=0.5 mg/dL 04/26/2019 2:21 PM CDT [facility] Blood BLOOD SPECIMEN / Unknown Lab Venipuncture / Unknown 04/26/2019 12:42 PM CDT 04/26/2019 1:19 PM CDT Judah Norton MD LAB - CHEMISTRY ORDE RABLES Performing Organization Address City/[facility]/[place] [address], [facility] [phone] * (ABNORMAL) COMPREHENSIVE METABOLIC PANEL (04/26/2019 12:42 PM CDT) BUN 72(H) 7 - 26 mg/dL 04/26/2019 1:43 PM [facility] Creatinine 4.9(H) 0.6 - 1.2 mg/dL 04/26/2019 1:43 PM [facility] Sodium 138 136 - 145 mmol/L 04/26/2019 1:43 PM [facility] Potassium 4.1 3.5 - 4.5 mmol/L 04/26/2019 1:43 PM [facility] Chloride 101 98 - 107 mmol/L 04/26/2019 1:43 PM [facility] CO2 22 22 - 29 mmol/L 04/26/2019 1:43 PM [facility] Glucose 227(H) 70 - 115 mg/dL 04/26/2019 1:43 PM [facility] Calcium 9.2 8.4 - 10.2 mg/dL 04/26/2019 1:43 PM [facility] Protein Total 6.9 6.0 - 8.3 g/dL 04/26/2019 1:43 PM [facility] Albumin 3.6 3.4 - 5.0 g/dL 04/26/2019 1:43 PM [facility] Bilirubin Total 0.4 0.2 - 1.2 mg/dL 04/26/2019 1:43 PM [facility] Alkaline Phosphatase 83 40 - 150 Units/L 04/26/2019 1:43 PM [facility] ALT 32 0 - 55 Units/L 04/26/2019 1:43 PM [facility] AST 30 5 - 34 Units/L 04/26/2019 1:43 PM [facility] Anion Gap 19(H) 8 - 18 04/26/2019 1:43 PM [facility] BUN/Creatinine Ratio 15 7 - 23 04/26/2019 1:43 PM [facility] Osmolality Calculated 314(H) 270 - 300 mOsm/kg 04/26/2019 1:43 PM [facility] Albumin/Globulin Ratio 1.1 1.1 - 2.3 04/26/2019 1:43 PM [facility] eGFR 13(L) >60 mL/min/1.7 3 m2 04/26/2019 1:43 PM [facility] Blood BLOOD SPECIMEN / Unknown Lab Venipuncture / Unknown 04/26/2019 12:42 PM CDT 04/26/2019 1:19 PM CDT Judah Norton MD LAB - CHEMISTRY SUSANNAH Roman Organization Address City/State/ZIP Co de Phone Number [facility] [address] [place] [address] * (ABNORMAL) CBC WITH DIFFERENTIAL (04/26/2019 12:42 PM CDT) WBC 4.9 3.5 - 10.5 10? 3 /uL 04/26/2019 1:22 PM [facility] RBC 3.40(L) 4.30 - 5.70 10? 6 /uL 04/26/2019 1:22 PM [facility] Hemoglobin 10.0(L) 13.5 - 17.5 g/dL 04/26/2019 1:22 PM [facility] Hematocrit 29.5(L) 39.0 - 50.0 % 04/26/2019 1:22 PM [facility] MCV 86.8 81.0 - 97.0 fL 04/26/2019 1:22 PM [facility] MCH 29.4 28.0 - 34.0 pg 04/26/2019 1:22 PM [facility] MCHC 33.9 32.0 - 36.0 g/dL 04/26/2019 1:22 PM [facility] Platelet Count 243 150 - 400 10? 3 /uL 04/26/2019 1:22 PM [facility] RDW-SD 39.9 36.0 - 50.0 fL 04/26/2019 1:22 PM [facility] RDW-CV 12.5 11.2 - 14.8 % 04/26/2019 1:22 PM [facility] MPV 9.7 9.3 - 12.8 fL 04/26/2019 1:22 PM [facility] nRBC Absolute 0.00 0 10? 3 /uL 04/26/2019 1:22 PM [facility] nRBC Auto 0.0 0 /100 WBC 04/26/2019 1:22 PM [facility] Neutrophils % 57.8 35.0 - 70.0 % 04/26/2019 1:22 PM [facility] Lymphocytes % 27.1 19.7 - 55.1 % 04/26/2019 1:22 PM [facility] Monocytes % 11.2 3.0 - 15.0 % 04/26/2019 1:22 PM [facility] Eosinophils % 2.9 0.0 - 6.0 % 04/26/2019 1:22 PM [facility] Basophil % 0.6 0.0 - 1.5 % 04/26/2019 1:22 PM [facility] Neutrophils Absolute 2.8 1.6 - 7.0 10? 3 /uL 04/26/2019 1:22 PM [facility] Lymphocyte Absolute 1.3 0.8 - 2.9 10? 3 /uL 04/26/2019 1:22 PM [facility] Monocytes Absolute 0.55 0.14 - 0.66 10? 3 /uL 04/26/2019 1:22 PM [facility] Eosinophils Absolute 0.14 0.00 - 0.45 10? 3 /uL 04/26/2019 1:22 PM [facility] Basophils Absolute 0.03 0.00 - 0.06 10? 3 /uL 04/26/2019 1:22 PM [facility] Immature Granulocytes % 0.4 0.0 - 1.0 % 04/26/2019 1:22 PM [facility] Blood BLOOD SPECIMEN / Unknown Lab Venipuncture / Unknown 04/26/2019 12:42 PM CDT 04/26/2019 1:19 PM CDT Judah Norton MD LAB - HEMATOLOGY ORD ERABLES [facility] [address] [phone] * (ABNORMAL) CK BLOOD (04/26/2019 12:42 PM CDT) CK Total 280(H) 30 - 200 Units/L 04/26/2019 1:43 PM [facility] Blood BLOOD SPECIMEN / Unknown Lab Venipuncture / Unknown 04/26/2019 12:42 PM CDT 04/26/2019 1:19 PM CDT Judah Norton MD LAB - CHEMISTRY SUSANNAH LEONE [address] [phone] * (ABNORMAL) LDH BLOOD (04/26/2019 12:42 PM CDT) LDH Total 268(H) 125 - 243 Units/L 04/26/2019 1:43 PM CDT [facility] Blood BLOOD SPECIMEN / Unknown Lab Venipuncture / Unknown 04/26/2019 12:42 PM CDT 04/26/2019 1:19 PM CDT Judah Norton MD LAB - CHEMISTRY SUSANNAH LEONE Performing Organization Address [facility]/ZIP Co de Phone Number [address] [phone] * ALDOLASE (04/26/2019 12:42 PM CDT) Aldolase 6.9 3.3 - 10.3 U/L 04/29/2019 3:08 PM CDT [facility] ([facility]) Blood BLOOD SPECIMEN / Unknown Lab Venipuncture / Unknown 04/26/2019 12:42 PM CDT 04/26/2019 1:18 PM CDT Narrative [facility] ([facility]) - 04/29/2019 3:08 PM CDT Performed at: ??01 - [facility] [address] [place], [place] ??[id number] Meat Cooler: Mehdi Del Angel PhD, Phone: ??[phone] Judah Norton MD LAB - CHEMISTRY SUSANNAH LEONE Performing Organization Address City/[facility]/ZIP Co de Phone Number [facility] ([facility]) [address] [place] [address], [facility] * URIC ACID BLOOD (04/26/2019 12:42 PM CDT) Uric Acid 4.4 2.6 - 7.2 mg/dL 04/26/2019 2:13 PM CDT [facility] Blood BLOOD SPECIMEN / Unknown Lab Venipuncture / Unknown 04/26/2019 12:42 PM CDT 04/26/2019 1:19 PM CDT Judah Norton MD LAB - CHEMISTRY SUSANNAH LEONE [facility] Organization Address City/State/ZIP Co de Phone Number [address] [phone] documented in this encounter Visit Diagnoses Diagnosis Gout, unspecified cause, unspecified chronicity, unspecified site- Primary [place], unspecified type (HCC) Osteoarthritis, unspecified osteoarthritis type, unspecified site documented in this encounter Care Teams Curer Foam Rubber Relationship Specialty Start Date End Date Aditya Castro Update Information PCP - General 03/06/19 documented as of this encounter
--- OUTSIDE RECORDS SUMMARY | 2024-08-24 04:29 | XMS_ITS | Encounter Summary ---
Author Organization [facility] Address [address], [place] [address] Phone Care Team Providers Care Striper Machine Name Role Phone Unavailable Primary Care Provider Unavailabl e Reason for Visit * Reason Comments Med Refill Encounter Details Date Type Department Care Team (Late st Contact Info) Description 10/08/2019 Refill [facility] [address] [address] Leandro Reyes MD [address] [address] Social History Tobacco Use Types [...]
--- OUTSIDE RECORDS SUMMARY | 2024-08-24 04:29 | XMS_ITS | Encounter Summary ---
Author Organization [facility] Address [address], [place] [address] Phone Care Team Providers Care Fixture Builder Name Role Phone Unavailable Primary Care Provider Unavailabl e Reason for Visit * Reason Comments CKD Encounter Details Date Type Department Care Team (Late st Contact Info) Description 04/02/2019 1:40 PM CDT Office Visit [facility] [address] [address] Leandro Reyes MD [address] [facility] [address] [place] [address] Social History Tobacco Use Types [...]
--- OUTSIDE RECORDS SUMMARY | 2024-08-24 04:29 | XMS_ITS | Encounter Summary ---
Author Organization [facility] Address [address] [facility] [place] [address] Care Team Providers Care Hospice Educator Name Role Phone Aditya Castro Primary Care Provider Unavailab le Encounter Details Date Type Department Care Team (Latest Contact Info) Description 04/26/2019 12:54 PM CDT - 04/26/2019 11:59 PM CDT Hospital Encounter [facility] [address] [place] [phone] Judah Norton MD [address] [place] [address] Discharge Disposition: Home or Self Care Social [...] fluticasone propionate (FLONASE) 50 MCG/ACT nasal spray [place] 1 spray into each nostril once daily [...] test strip 04/17/2019 vitamin D, ergocalciferol, (DRISDOL) 65603 units capsule Take 50,000 Units by mouth [...] examination/study. This report was electronically signed by CNORAD GONZALES MD ??on 04/26/2019 2:11 PM . [...] on filedocumented in this encounter Care Teams Hospice Educator Relationship Specialty Start Date End Date Aditya Castro Update Information PCP - General 03/06/19 documented as of this encounter
--- OUTSIDE RECORDS SUMMARY | 2024-08-24 04:29 | XMS_ITS | Encounter Summary ---
Author Organization [facility] Address [address], [place] [address] Phone Care Team Providers Care Grounds Maintenance Manager Name Role Phone Unavailable Primary Care Provider Unavailabl e Reason for Visit * Reason Comments Med Refill Encounter Details Date Type Department Care Team (Late st Contact Info) Description 12/25/2020 Refill [facility] [address] [place] [address] Leandro Reyes MD [address] [address] Social History Tobacco Use Types [...]
--- OUTSIDE RECORDS SUMMARY | 2024-08-24 04:29 | XMS_ITS | Encounter Summary ---
Author Organization [facility] Address [address] [facility] [place] [address] Care Team Providers Care Breaker Oiler Name Role Phone Matthew Aditya Ellison Primary Care Provider Unavailab le Reason for Visit * Reason Onset Date Comments Med Question 06/25/2019 Encounter Details Date Type Department Care Team (Late st Contact Info) Description 06/25/2019 Telephone [facility] [address] [place] [address] Finn Kramer MD [address] [place] [address] Med Question Social History Tobacco Use Types [...] pt he is asking that we call [facility] at [phone] and talk to them about the compression stockings. I called and spoke with Kashif at [facility] and gave clarification the the mmHg I let them know that they should Be the 20-30mmHg . He understood and will get them ready for pt. Anali Connelly PUNCHER STRAP * Telephone Encounter - Theodore Huerta - 06/25/2019 10:40 AM CST Pt called saying patient pharmacy just needs clarification of a number on the prescription for compression socks. Please Advise. PUNCHER STRAP documented in this encounter Plan of Treatment Not on file documented as of this encounter Visit Diagnoses Not on filedocumented in this encounter Care Teams Breaker Oiler Relationship Specialty Start Date End Date Aditya Castro Update Information PCP - General 03/06/19 documented as of this encounter
--- OUTSIDE RECORDS SUMMARY | 2024-08-24 04:29 | XMS_ITS | Encounter Summary ---
Author Organization [facility] utimildred Address [address], [place] [address] Phone Care Team Providers Care Public Health Nurse Name Role Phone Unavailable Primary Care Provider Unavailabl e Reason for Visit * Reason Comments CKD Encounter Details Date Type Department Care Team (Latest Contact Info) Description 10/29/2019 10:20 AM CDT Office Visit [facility] [address] [place] [address] Ricardo Reyes MD [address] [address] Stage 5 chronic kidney disease [...] mg by mouth. ??? Cholecalciferol (VITAMIN D3) 44485 units capsule 1 tab by mouth once [...] this visit: Stage 5 chronic kidney disease ([facility]) Type 2 diabetes mellitus with diabetic nephropathy ([facility] Secondary hyperparathyroidism ([facility]) Hypertensive end stage renal disease ([facility]) Obstructive sleep apnea Anemia in chronic kidney [...] Diagnoses Diagnosis Stage 5 chronic kidney disease ([facility])- Primary Type 2 diabetes mellitus with diabetic nephropathy (CMS-HCC) Secondary hyperparathyroidism (CMS-HCC) Hypertensive end stage renal disease ([facility]) Obstructive sleep apnea Anemia in chronic kidney disease documented in this encounter
--- OUTSIDE RECORDS SUMMARY | 2024-08-24 04:29 | XMS_ITS | Encounter Summary ---
Author Organization [facility] ut[facility]red Address [address], [place] [address] Phone Care Team Providers Care Flexo Press Operator Name Role Phone Unavailable Primary Care Provider Unavailabl e Reason for Visit * Reason Comments Med Refill Encounter Details Date Type Department Care Team (Late st Contact Info) Description 02/24/2020 Refill [facility] [address] [address] Leandro Reyes MD [address] [address] Social History Tobacco Use Types [...]
--- OUTSIDE RECORDS SUMMARY | 2024-08-24 04:29 | XMS_ITS | Encounter Summary ---
Author Organization [facility] ut[facility]red Address [address] [address] Phone Care Team Providers Care Montessori Paraprofessional Name Role Phone Unavailable Primary Care Provider Unavailabl e Reason for Visit * Reason Comments Med Refill Encounter Details Date Type Department Care Team (Late st Contact Info) Description 12/23/2021 Refill [facility] [address] [place] [address] Arabella Lo, SMALL LOT OPERATOR [address] [address] Social History Tobacco Use Types Packs/Day Years [...]
--- OUTSIDE RECORDS SUMMARY | 2024-08-24 04:29 | XMS_ITS ---
Author Organization [facility] Address [address] [facility] [address] Care Team Providers Care Bioinformatics Research Technician Name Role Phone Aditya Castro Primary Care Provider Unavailab le Transplant Episode Pancreas Candidate [facility] ([place], [place]) - [facility] Referred on 12/31/2019 Marked as Ineligible on 02/04/2020 Reason: Weight Issues Pancreas CoordinatorGracie Chambers RN Phone: N/A Fax: N/A Email: N/A Care Team Name Role Phone Fax Email Gracie Chambers RN Pancreas Coordinator N/A N/A N/A Leandro Reyes MD Referring Physician N/A N/A N/A Events Pre-Transplant Referred: 12/31/2019 Dialysis History Dialysis History Start End Type Comments Center 10/16/2019 Peritoneal [facility] D[facility] Information Center Phone Fax Address [facility] [phone] [address]
--- OUTSIDE RECORDS SUMMARY | 2024-08-24 04:29 | XMS_ITS | Encounter Summary ---
Author Organization [facility] Address [address] [address] Phone Care Team Providers Care Preparer Name Role Phone Unavailable Primary Care Provider Unavailabl e Reason for Visit * Reason Comments Med Refill Encounter Details Date Type Department Care Team (Late st Contact Info) Description 11/14/2019 Refill [facility] [address] [address] Leandro Reyes MD [address] [address] Social History Tobacco Use Types [...]
--- OUTSIDE RECORDS SUMMARY | 2024-08-24 04:29 | XMS_ITS | Encounter Summary ---
Author Organization [facility]red Address [address] [address] Phone Care Team Providers Care Strategic Partnership Specialist Name Role Phone Unavailable Primary Care Provider Unavailabl e Reason for Visit * Reason Comments Med Refill Encounter Details Date Type Department Care Team (Late st Contact Info) Description 12/19/2020 Refill [facility] [address] [place] [address] Leandro Reyes MD [address] [address] Social History Tobacco Use Types [...]
--- OUTSIDE RECORDS SUMMARY | 2024-08-24 04:29 | XMS_ITS | Encounter Summary ---
Author Organization [facility]red Address [address] [place] [address] Phone Care Team Providers Care Entrepreneurship Program Director Name Role Phone Unavailable Primary Care Provider Unavailabl e Reason for Visit * Reason Onset Date Comments Med Refill 02/13/2019 Encounter Details Date Type Department Care Team (Late st Contact Info) Description 02/13/2019 Refill [facility] [address] [facility], [address] [place] [address] Anabel Kingsley RN Social History Tobacco Use [...]
--- OUTSIDE RECORDS SUMMARY | 2024-08-24 04:29 | XMS_ITS | Clinical Summary ---
Author Organization [facility] marquez Address [address] [place] [address] Phone Care Team Providers Care Lithographers Printer Name Role Phone Unavailable Primary Care Provider [...] daily 0 12/27/2017 Active Cholecalciferol (VITAMIN D3) 26371 units capsule 1 tab by mouth once [...]
--- OUTSIDE RECORDS SUMMARY | 2024-08-24 04:29 | XMS_ITS | Encounter Summary ---
Author Organization [facility] Address [address] [place] [address] Care Team Providers Care Maintenance Shop Laborer Name Role Phone CastroNancy josueAditya K Primary Care Provider Unavailab le Reason for Visit * Reason Comments Establish Care New patient, FBSC- s cattered moles, dry skin forehead, side of nose(irritating), legs, hands. Dark areas on lower legs, no symptoms Encounter Details Date Type Department Care Team (Late st Contact Info) Description 04/11/2019 1:20 PM CDT Office Visit [facility] [address] [place] [address] Finn Kramer MD [address] [place] [address] Other seborrheic dermatitis (Primary Dx); Venous stasis [...] stronger ones than this. We often recommend Arzedauro [employer] at [employer] or online at [email or web address] They can also be obtained from [facility] CARE INSTRUCTIONS Try to rest and raise [...] device. Many people find good deals on [employer]ashioner Aikra device: [address] [place] [address] P: [phone] F: [phone] M-F 8:30am-5:30pm Sat 10am-3pm [address] [address] P: [phone] F: [phone] M-F 8:30am-5:30pm Closed Monday [facility] [address] [facility] [place] [address] P: [phone] F: [phone] M-F 8:30am-5:30pm Closed Monday documented in this [...] x yrs. OTC tx. Itching occ. PE: [place] scaly patches b/l eyebrows, NLF, post auricular. 2+ pitting edema with brawny discoloration b/l LE. Scattered over trunk and extremities are numerous, 2-6 mm, evenly pigmented miller to brownmacules and papules A/P [facility] - Selsun blue 2. Stasis - Compression - Amlactin 3. Nevi - Benign - FBSE yearly Jackei Vasquez DO documented in this encounter Plan of Treatment Not on file documented as of this encounter Visit Diagnoses Diagnosis Other seborrheic dermatitis- Primary Venous stasis dermatitis of both lower extremities Angiokeratoma of scrotum Benign neoplasm of scrotum Multiple benign melanocytic nevi of upper and lower extremities and trunk documented in this encounter Care Teams Maintenance Shop Laborer Relationship Specialty Start Date End Date Aditya Castro Update Information PCP - General 03/06/19 documented as of this encounter
--- OUTSIDE RECORDS SUMMARY | 2024-08-24 04:29 | XMS_ITS | Encounter Summary ---
Author Organization [facility] Address [address] [facility] [place] [address] Care Team Providers Care Motel Maid Name Role Phone Aditya Castro Primary Care Provider Unavailab le Encounter Details Date Type Department Care Team (Latest Contact Info) Description 04/26/2019 12:20 PM CDT - 04/26/2019 12:53 PM CDT Hospital Encounter [facility] [address] [place] [phone] Judah Norton MD [address] [facility] 2L [place] [phone] Discharge Disposition: Home or Self Care Social [...] fluticasone propionate (FLONASE) 50 MCG/ACT nasal spray Marshall 1 spray into each nostril once daily [...] test strip 04/17/2019 vitamin D, ergocalciferol, (DRISDOL) 06946 units capsule Take 50,000 Units by mouth [...] IGG/IGA (CCP) (04/26/2019 12:42 PM CDT) Pathologist [facility] CCP Antibodies IgG/IgA 17 0 - 19 units 04/29/2019 9:06 PM CDT [facility] ([facility]) Comment: ?Negative ? <20 ?Weak positive ?20 - 39 ?Moderate positive ??40 - 59 ?Strong positive ?>59 Blood BLOOD SPECIMEN / Unknown Lab Venipuncture / Unknown 04/26/2019 12:42 PM CDT 04/26/2019 1:18 PM CDT Narrative [facility] ([facility]) - 04/29/2019 9:06 PM CDT Performed at: ??[address] - [address] ??[id number] Senior Buyer Planner: Con Grimaldo MD, Phone: ??[phone] Judah Norton MD LAB - SEROLOGY ORDER ROVERTO Performing Organization Address City/[facility]/ZIP Co de Phone Number [facility] ([facility]) [address] [place] [phone] * RHEUMATOID FACTOR BLOOD QUANTITATIVE (04/26/2019 12:42 PM CDT) [facility] Rheumatoid Factor <15 <30 IU/mL 04/26/2019 2:34 PM CDT [facility] Blood BLOOD SPECIMEN / Unknown Lab Venipuncture / Unknown 04/26/2019 12:42 PM CDT 04/26/2019 1:18 PM CDT Judah Norton MD LAB - CHEMISTRY SUSANNAH LEONE [address] [phone] * SS-B (SJOGREN'S) ANTIBODY (04/26/2019 12:42 PM CDT) [facility] SS-B LA Antibody 2.8 0.0 - 19.9 Units 04/30/2019 9:45 AM CDT [facility] Comment: JOSE ENRIQUE Antibody Numeric Result Interpretation: ?<20.0 Units: ??Negative ?20.0 - 39.0 Units: ??Weakly Positive ?>39.0 Units: ??Positive ? Blood BLOOD SPECIMEN / Unknown Lab Venipuncture / Unknown 04/26/2019 12:42 PM CDT 04/26/2019 1:19 PM CDT Judah Norton MD LAB - CHEMISTRY SUSANNAH LEONE Performing Organization Address [facility] Co de Phone Number [address] [phone] * SS-A (SJOGREN'S) ANTIBODY (04/26/2019 12:42 PM CDT) [facility] SS-A (Ro) Antibody 2.7 0.0 - 19.9 Units 04/30/2019 9:45 AM CDT [facility] Comment: JOSE ENRIQUE Antibody Numeric Result Interpretation: ?<20.0 Units: ??Negative ?20.0 - 39.0 Units: ??Weakly Positive ?>39.0 Units: ??Positive ? Blood BLOOD SPECIMEN / Unknown Lab Venipuncture / Unknown 04/26/2019 12:42 PM CDT 04/26/2019 1:19 PM CDT Judah Norton MD LAB - CHEMISTRY SUSANNAH LEONE Performing Organization Address [facility]/ZIP Co de Phone Number [facility] [address] [phone] * SHAWN BLOOD SCREEN W/REFLEX TITER (04/26/2019 12:42 PM CDT) [facility] Negative 04/27/2019 3:07 PM CDT [facility] ([facility]) Comment: ? Negative ?? <1:80 ? Borderline ??1:80 ? Positive ?? >1:80 Blood BLOOD SPECIMEN / Unknown Lab Venipuncture / Unknown 04/26/2019 12:42 PM CDT 04/26/2019 1:18 PM CDT Narrative [facility] ([facility]) - 04/27/2019 3:07 PM CDT Performed at: ??01 - [facility] [address] [place], [place] ??[id number] Senior Buyer Planner: Mehdi Del Angel PhD, Phone: ??[phone] Judah Norton MD LAB - CHEMISTRY SUSANNAH LEONE Performing Organization Address [facility] Co de Phone Number [facility] ([facility]) [address] [place] [address] * (ABNORMAL) VITAMIN D 25-HYDROXY (04/26/2019 12:42 PM CDT) Pathologist [facility] Vitamin D, 25 Hydroxy 15.1(L) See comment: ng/mL 04/26/2019 2:25 PM CDT [facility] Comment: The recommendations for [...] LAB - CHEMISTRY SUSANNAH LEONE [facility] Organization Address City/State/ZIP Co de Phone Number [address] [phone] * (ABNORMAL) URINALYSIS W/MICROSCOPIC NO CULTURE (04/26/2019 12:42 PM CDT) Color UA Yellow Straw, Yellow, Colorless 04/26/2019 1:31 PM CDT [facility] Clarity UA Slt Cloudy Clear, Slt Cloudy 04/26/2019 1:31 PM T [facility] Specific Republic UA 1.013 1.005 - 1.030 04/26/2019 1:31 PM CDT [facility] pH UA 5.0 5.0 - 8.0 pH 04/26/2019 1:31 PM T [facility] Protein UA 2+(A) Negative mg/dL 04/26/2019 1:31 PM T [facility] Glucose UA 1+(A) Negative mg/dL 04/26/2019 1:31 PM CDT [facility] Ketone UA Negative Negative mg/dL 04/26/2019 1:31 PM T [facility] Bilirubin UA Negative Negative mg/dL 04/26/2019 1:31 PM CDT [facility] Blood UA Negative Negative 04/26/2019 1:31 PM T [facility] Nitrite UA Negative Negative 04/26/2019 1:31 PM T [facility] Leukocyte Esterase Negative Negative 04/26/2019 1:31 PM T [facility] Urobilinogen UA Negative Negative mg/dL 04/26/2019 1:31 PM T [facility] RBC UA 0-2 None Seen, 0-2, 3-5 /HPF 04/26/2019 1:31 PM T [facility] WBC UA 0-5 None Seen, 0-5 /HPF 04/26/2019 1:31 PM T [facility] Squamous Epithelial Cells UA 0-2 None Seen, 0-2 /HPF 04/26/2019 1:31 PM T [facility] Mucus UA 1+ None, 1+ /LPF 04/26/2019 1:31 PM T [facility] Hyaline Casts UA 11-20(A) None Seen, 0-2 /LPF 04/26/2019 1:31 PM CDT [facility] Urine URINE SPECIMEN OBTAINED BY CLEAN CATCH PROCEDURE / Unknown Collection / Unknown 04/26/2019 12:42 PM CDT 04/26/2019 1:18 PM CDT Narrative [facility] - 04/26/2019 1:31 PM CDT Judah Norton MD LAB - URINALYSIS ORD ERABLES Performing Organization Address City/State/[facility] Co de Phone Number [facility] [address] [place] [address] * (ABNORMAL) ERYTHROCYTE SEDIMENTATION RATE (04/26/2019 12:42 PM CDT) Erythrocyte Sedimentation Rate Westergren 34(H) 0 - 20 MM/HR 04/26/2019 1:31 PM CDT [facility] Blood BLOOD SPECIMEN / Unknown Lab Venipuncture / Unknown 04/26/2019 12:42 PM CDT 04/26/2019 1:19 PM CDT Judah Norton MD LAB - HEMATOLOGY ORD ERABLES [facility] [address] [place] [address] * C-REACTIVE PROTEIN (04/26/2019 12:42 PM CDT) [facility] C-Reactive Protein <0.5 <=0.5 mg/dL 04/26/2019 2:21 PM T [facility] Blood BLOOD SPECIMEN / Unknown Lab Venipuncture / Unknown 04/26/2019 12:42 PM CDT 04/26/2019 1:19 PM CDT Judah Norton MD LAB - CHEMISTRY SUSANNAH LEONE [address] [phone] * (ABNORMAL) COMPREHENSIVE METABOLIC PANEL (04/26/2019 12:42 PM CDT) [facility] BUN 72(H) 7 - 26 mg/dL 04/26/2019 1:43 PM [facility] Creatinine 4.9(H) 0.6 - 1.2 mg/dL 04/26/2019 1:43 PM [facility] Sodium 138 136 - 145 mmol/L 04/26/2019 1:43 PM [facility] Potassium 4.1 3.5 - 4.5 mmol/L 04/26/2019 1:43 PM [facility] Chloride 101 98 - 107 mmol/L 04/26/2019 1:43 PM [facility] CO2 22 22 - 29 mmol/L 04/26/2019 1:43 PM [facility] Glucose 227(H) 70 - 115 mg/dL 04/26/2019 1:43 PM [facility] Calcium 9.2 8.4 - 10.2 mg/dL 04/26/2019 1:43 PM [facility] Protein Total 6.9 6.0 - 8.3 g/dL 04/26/2019 1:43 PM [facility] Albumin 3.6 3.4 - 5.0 g/dL 04/26/2019 1:43 PM [facility] Bilirubin Total 0.4 0.2 - 1.2 mg/dL 04/26/2019 1:43 PM [facility] Alkaline Phosphatase 83 40 - 150 Units/L 04/26/2019 1:43 PM [facility] ALT 32 0 - 55 Units/L 04/26/2019 1:43 PM [facility] AST 30 5 - 34 Units/L 04/26/2019 1:43 PM [facility] Anion Gap 19(H) 8 - 18 04/26/2019 1:43 PM [facility] BUN/Creatinine Ratio 15 7 - 23 04/26/2019 1:43 PM [facility] Osmolality Calculated 314(H) 270 - 300 mOsm/kg 04/26/2019 1:43 PM [facility] Albumin/Globulin Ratio 1.1 1.1 - 2.3 04/26/2019 1:43 PM [facility] eGFR 13(L) >60 mL/min/1.7 3 m2 04/26/2019 1:43 PM [facility] Blood BLOOD SPECIMEN / Unknown Lab Venipuncture / Unknown 04/26/2019 12:42 PM CDT 04/26/2019 1:19 PM T Judah Norton MD LAB - CHEMISTRY SUSANNAH LEONE [facility] Organization Address City/State/ZIP Co de Phone Number [address] [phone] * (ABNORMAL) CBC WITH DIFFERENTIAL (04/26/2019 12:42 PM CDT) WBC 4.9 3.5 - 10.5 10? 3 /uL 04/26/2019 1:22 PM [facility] RBC 3.40(L) 4.30 - 5.70 10? 6 /uL 04/26/2019 1:22 PM [facility] Hemoglobin 10.0(L) 13.5 - 17.5 g/dL 04/26/2019 1:22 PM [facility] Hematocrit 29.5(L) 39.0 - 50.0 % 04/26/2019 1:22 PM [facility] MCV 86.8 81.0 - 97.0 fL 04/26/2019 1:22 PM [facility] MCH 29.4 28.0 - 34.0 pg 04/26/2019 1:22 PM [facility] MCHC 33.9 32.0 - 36.0 g/dL 04/26/2019 1:22 PM [facility] Platelet Count 243 150 - 400 10? 3 /uL 04/26/2019 1:22 PM [facility] RDW-SD 39.9 36.0 - 50.0 fL 04/26/2019 1:22 PM [facility] RDW-CV 12.5 11.2 - 14.8 % 04/26/2019 1:22 PM [facility] MPV 9.7 9.3 - 12.8 fL 04/26/2019 1:22 PM [facility] nRBC Absolute 0.00 0 10? 3 /uL 04/26/2019 1:22 PM [facility] nRBC Auto 0.0 0 /100 WBC 04/26/2019 1:22 PM [facility] Neutrophils % 57.8 35.0 - 70.0 % 04/26/2019 1:22 PM [facility] Lymphocytes % 27.1 19.7 - 55.1 % 04/26/2019 1:22 PM [facility] Monocytes % 11.2 3.0 - 15.0 % 04/26/2019 1:22 PM [facility] Eosinophils % 2.9 0.0 - 6.0 % 04/26/2019 1:22 PM [facility] Basophil % 0.6 0.0 - 1.5 % 04/26/2019 1:22 PM [facility] Neutrophils Absolute 2.8 1.6 - 7.0 10? 3 /uL 04/26/2019 1:22 PM [facility] Lymphocyte Absolute 1.3 0.8 - 2.9 10? 3 /uL 04/26/2019 1:22 PM [facility] Monocytes Absolute 0.55 0.14 - 0.66 10? 3 /uL 04/26/2019 1:22 PM [facility] Eosinophils Absolute 0.14 0.00 - 0.45 10? 3 /uL 04/26/2019 1:22 PM CDT [facility] Basophils Absolute 0.03 0.00 - 0.06 10? 3 /uL 04/26/2019 1:22 PM CDT [facility] Immature Granulocytes % 0.4 0.0 - 1.0 % 04/26/2019 1:22 PM CDT [facility] Blood BLOOD SPECIMEN / Unknown Lab Venipuncture / Unknown 04/26/2019 12:42 PM CDT 04/26/2019 1:19 PM CDT Judah Norton MD LAB - HEMATOLOGY ORD ERASANDRA [address] [phone] * (ABNORMAL) CK BLOOD (04/26/2019 12:42 PM CDT) CK Total 280(H) 30 - 200 Units/L 04/26/2019 1:43 PM CDT [facility] Blood BLOOD SPECIMEN / Unknown Lab Venipuncture / Unknown 04/26/2019 12:42 PM CDT 04/26/2019 1:19 PM CDT Judah Norton MD LAB - CHEMISTRY SUSANNAH LEONE [address] [phone] * (ABNORMAL) LDH BLOOD (04/26/2019 12:42 PM CDT) LDH Total 268(H) 125 - 243 Units/L 04/26/2019 1:43 PM CDT [facility] Blood BLOOD SPECIMEN / Unknown Lab Venipuncture / Unknown 04/26/2019 12:42 PM CDT 04/26/2019 1:19 PM CDT Judah Norton MD LAB - CHEMISTRY SUSANNAH LEONE [address] [phone] * ALDOLASE (04/26/2019 12:42 PM CDT) Aldolase 6.9 3.3 - 10.3 U/L 04/29/2019 3:08 PM CDT [facility] ([facility]) Blood BLOOD SPECIMEN / Unknown Lab Venipuncture / Unknown 04/26/2019 12:42 PM CDT 04/26/2019 1:18 PM CDT Narrative [facility] ([facility]) - 04/29/2019 3:08 PM CDT Performed at: ??01 - [facility] [address] [place], [place] ??[id number] Senior Buyer Planner: Mehdi Del Angel PhD, Phone: ??[phone] Judah Norton MD LAB - CHEMISTRY SUSANNAH LEONE Performing Organization Address City/[facility]/ZIP Co de Phone Number [facility]) [address] [place] [address] * URIC ACID BLOOD (04/26/2019 12:42 PM CDT) Uric Acid 4.4 2.6 - 7.2 mg/dL 04/26/2019 2:13 PM CDT [facility] Blood BLOOD SPECIMEN / Unknown Lab Venipuncture / Unknown 04/26/2019 12:42 PM CDT 04/26/2019 1:19 PM CDT Judah Norton MD LAB - CHEMISTRY SUSANNAH LEONE [facility] [address] [phone] documented in this encounter Visit Diagnoses Diagnosis Gout, unspecified cause, unspecified chronicity, unspecified site Sicca, unspecified type (HCC) documented in this encounter Care Teams Motel Maid Relationship Specialty Start Date End Date Aditya Castro Update Information PCP - General 03/06/19 documented as of this encounter
--- OUTSIDE RECORDS SUMMARY | 2024-08-24 04:29 | XMS_ITS | Encounter Summary ---
Author Organization [facility] Address [address] [facility] [place] [address] Care Team Providers Care Rn Practitioner Name Role Phone Aditya Castro Primary Care Provider Unavailab le Encounter Details Date Type Department Care Team (Late st Contact Info) Description 04/27/2019 Orders Only [facility] [address] [place] [address] Judah Norton MD [address] [place] [phone] Social History Tobacco Use Types Packs/Day Years [...] approximately 13% higher for people identified as -Bulgarian. eGFR by MDRD 14(L) > OR = [...] [address] [facility] Comment: Test Performed at: [facility] [address] [place], [place] ??[phone] ANA REYES DO,MPH 04/27/2019 9:17 AM CDT 04/27/2019 9:19 AM CDT Judah Norton MD LAB - URINE CHEMISTR Y ORDERABLES Performing Organization Address City/State/[facility] Co de Phone Number [facility] [address] [place] [address] documented in this encounter Visit Diagnoses Not on filedocumented in this encounter Care Teams Rn Practitioner Relationship Specialty Start Date End Date Aditya Castro Update Information PCP - General 03/06/19 documented as of this encounter
--- OUTSIDE RECORDS SUMMARY | 2024-08-24 04:29 | XMS_ITS | Encounter Summary ---
Author Organization [facility] utimildred Address [address] [place] [address] Phone Care Team Providers Care Water Jet Loom Fixer Name Role Phone Unavailable Primary Care Provider Unavailabl e Encounter Details Date Type Department Care Team (Late st Contact Info) Description 11/08/2018 1:00 PM CDT Office Visit [facility] [address] [facility] [address] [place] [address] Arabella Lo NP [address] [address] Chronic kidney disease stage 4 [...] as of this encounter Progress Notes * Arabella Lo NP - 11/08/2018 1:00 PM CDT Patient presents today for renal education. Oral pre and post test performed. Discussed modalities including hemodialysis, peritoneal dialysis, medical management, and transplant. Patient has indicated that they will likely chose [facility] and has also discussed this at a past hospitalization at [facility]. Patient is to notify office if any changes in health take place prior to follow up with videotape recording engineer. This includes any changes in urinary habits, shortness of breath, loss of appetite, weight gain or loss, or any edema. Total time spent: 55 minutes documented in this encounter Plan of Treatment Not on file documented as of this encounter Visit Diagnoses Diagnosis Chronic kidney disease stage 4 (CMS-HCC)- Primary documented in this encounter
--- OUTSIDE RECORDS SUMMARY | 2024-08-24 04:29 | XMS_ITS | Encounter Summary ---
Author Organization [facility] Address [address], [place] [address] Phone Care Team Providers Care Salt Operator Name Role Phone Unavailable Primary Care Provider Unavailabl e Reason for Visit * Reason Comments Med Refill Encounter Details Date Type Department Care Team (Late st Contact Info) Description 11/19/2020 Refill [facility] [address] [place] [phone] Leandro Reyes MD [address] [address] Social History Tobacco Use Types [...]
--- OUTSIDE RECORDS SUMMARY | 2024-08-24 04:29 | XMS_ITS | Encounter Summary ---
Author Organization [facility] Address [address], [place] [address] Phone Care Team Providers Care Energy Conservation Director Name Role Phone Unavailable Primary Care Provider Unavailabl e Reason for Visit * Reason Comments Med Refill Encounter Details Date Type Department Care Team (Late st Contact Info) Description 07/04/2019 Refill [facility] [address] [address] Leandro Reyes MD [address] [address] Social History Tobacco Use Types [...]
--- OUTSIDE RECORDS SUMMARY | 2024-08-24 04:29 | XMS_ITS | Encounter Summary ---
Author Organization [facility] Address [address] [place] [address] Phone Care Team Providers Care Occupational Hygienist Name Role Phone Unavailable Primary Care Provider Unavailabl e Reason for Visit * Reason Comments CKD Encounter Details Date Type Department Care Team ([facility] st Contact Info) Description 02/12/2019 1:00 PM CDT Office Visit [facility] [address] [place] [phone] Leandro Reyes MD [address] [id number] Social History Tobacco Use Types Packs/Day Years [...]
--- OUTSIDE RECORDS SUMMARY | 2024-08-24 04:29 | XMS_ITS | Encounter Summary ---
Author Organization [facility] Address [address], [place] [address] Phone Care Team Providers Care Nail Setter Name Role Phone Unavailable Primary Care Provider Unavailabl e Reason for Visit * Reason Comments CKD Encounter Details Date Type Department Care Team (Latest Contact Info) Description 10/01/2019 2:40 PM [employer] Office Visit [facility] [address] [place] [address] Ricardo Banuelos MD [address] [address] Stage 5 chronic kidney disease [...] Comments Blood Pressure 165/71 10/01/2019 1:51 PM [employer] Pulse 57 10/01/2019 1:51 PM [employer] Temperature - - Respiratory Rate - - Oxygen Saturation - - Inhaled Oxygen Concentration - - Weight 116 kg (256 lb) 10/01/2019 1:51 PM [employer] Height 177.8 cm (5' 10 ) 10/01/2019 1:51 PM [employer] Body Mass Index 36.73 10/01/2019 1:51 PM [employer] documented in this encounter Progress Notes [...] mg by mouth. ??? 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[facility]) Secondary hyperparathyroidism ([facility]) - PTH Intact w/o Calcium, Serum; Future Anemia in chronic kidney disease - CBC (includes Platelets / NO Differential); Future - Iron and TIBC, Serum; Future - Ferritin, Serum; Future Obstructive sleep apnea Hypertensive end stage renal disease ([facility]) Other orders - furosemide (LASIX) 80 MG [...] Lab Routine Stage 5 chronic kidney disease ([facility]) Anemia in chronic kidney disease Expected: 03/31/2020, Expires: 03/31/2020 PTH Intact w/o Calcium, Serum Lab Routine Secondary hyperparathyroidism ([facility]) Expected: 03/31/2020, Expires: 03/31/2020 Renal Function Panel (RFP) Lab Routine Stage 5 chronic kidney disease ([facility]) Expected: 03/31/2020, Expires: 10/01/2020 Iron and TIBC, Serum Lab Routine Anemia in chronic kidney disease 1 Occurrences starting 10/01/2019 until 03/31/2020 Ferritin, Serum Lab Routine Anemia in chronic kidney disease 1 Occurrences starting 10/01/2019 until 03/31/2020 documented as of this encounter Visit Diagnoses Diagnosis Stage 5 chronic kidney disease ([facility])- Primary 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
--- OUTSIDE RECORDS SUMMARY | 2024-08-24 04:29 | XMS_ITS | Encounter Summary ---
Author Organization [facility] Address [address] [facility] [place] [address] Care Team Providers Care Motorcycle Deliverer Name Role Phone Jhonatan Bellamy MD Primary Care Provider [phone] Reason for Visit * Auth/Cert Specialty Diagnoses / Procedures Referred By Contac t Referred To Contact Diagnoses chest pain shortness of breath Referral ID Status Reason Start Date Expiration Date Visits Re quested Visits Authorized [id number] 1 1 Encounter Details Date Type Department Care Team (Latest Contact Info) Description 11/22/2018 7:13 AM CDT - 11/23/2018 6:30 PM CDT Hospital Encounter [facility] 2N TELE/ONCOLOGY [address] [place] [address] Francisco Luque MD [address] [place] [address] Cardiac Catheterization Discharge Disposition: Home or Self [...] 11/23/2018 11:02 AM CDT Physician Discharge Summary [facility] Patient ID: Juvenal Garvin [id number] 48 year old 1970 Admit date: 11/22/2018 [...] Comments Your discharge diagnosis is: Coronary arteriosclerosis [721907] Follow up with Primary Care Provider (PCP) Our records show your Primary Care Provider (PCP) is Jhonatan Bellamy MD. Order Specific Question Answer Comments Follow Up Instructions: Follow up as scheduled. Cardiac (heart-healthy) diet {Cardiac Diet Follow up with provider Order Specific Question Answer Comments Follow Up Instructions: follow up with Dr Luque in 4 weeks. No heavy lifting Do [...] am 2.74 Per nursing assessments: Transportation (who): Drill Press Operator Helper/Support: Drill Press Operator Helper/Support Person - Relationship:: Lorne- Brother Drill Press Operator Helper person: Home/Functional Status: Equipment with patient: None Assistive Devices: None ?. Will continue to follow. For any questions or needs please contact: Electric Meter Technician Name/Phone number: Janee Ruelas RN * Dimitrios Narvaez RN - 11/23/2018 12:50 AM CDT Problem: Incision Care Goal: Signs and symptoms of infections are decreased or avoided Outcome: Ongoing 11/22/18 2330 Precautions Implemented Precautions None * Francisco Luque MD - 11/22/2018 8:13 AM CDT CARDIAC SQL TECH INDICATIONS PRE PROCEDURE H&P and AUC TOOL [...] for performance of procedure. Monitoring: heart rate, monitor tech, continuous pulse oximetry, frequent blood pressure checks,level of consciousness, IV access, constant attendance by RN until patient recovered, and emergencyairway equipment available. Based on the above criteria, I believe that patient meets clinical indications for a cardiac catheterization. Francisco Luque MD 11/22/2018 8:13 AM documented in this encounter Procedure Notes * Francisco Luque MD - 11/23/2018 3:23 AM CDTAssociated Order(s): CARDIAC CATH [facility] CARDIAC CATHETERIZATION PATIENT: JUVENAL GARVIN MR#: [id number] ADMIT DATE: 11/22/2018 CSN: [id number] PROCEDURE DATE: 11/22/2018 : 1970 PHYSICIAN: Francisco Luque Jr., MD ROOM: [facility] REFERRING PHYSICIAN: Francisco Luque Jr., [...] was placed in right femoral artery. A 5-Central African #4 Kranthi left coronary catheter was advanced in the left coronary ostium and left coronary arteriograms were performed in multiple projections. This catheter was removed and exchanged for 5-Central African #4 Kranthi right coronary catheter, was advanced in the right coronary ostium. Right coronary arteriography was performed in multiple projections. This catheter was removed. The decision was made to proceed with intervention and therefore no left ventriculogram was performed to avoid excess dye in this patient with severe kidney disease. The arterial sheath was exchanged for 6-Central African sheath followed by advancement of a 6-Central African #4 Kranthi right guide to the right [...] stenosis, dissection, or thrombus formation with VIPUL grade 3 flow. Thank you for the opportunity to participate in the care of this very pleasant gentleman. FRANICSCO LUQUE JR., MD RPR/MODL #: [id number] cc: Francisco Luque Jr., MD MEDICAL/SURGICAL CARDIAC CATHETERIZATION - DP documented in this encounter Miscellaneous Notes * Significant Event - Kristie Lizama - 11/23/2018 11:31 AM CDT Nursing Hypoglycemia Note Juvenal Garvin [id number] Date of occurrence: 11/23/2018 Time of occurrence: [...] Lab Values Lab Results Component Value Date/Time [id number] 31 (LL) 11/23/2018 11:19 AM [id number] 469 (HH) 11/22/2018 09:29 PM [id number] 316 (H) 11/22/2018 03:05 PM [id number] 123 (H) 11/22/2018 12:14 PM Lab Results [...] CONSIST CARB CARDIAC Pertinent administrations from the [facility] Related Administrations from [facility] (last 12 hours) Date/Time Action User Medication [...] 3:25 AM CDT 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[place] heart with stable angina pectoris, unspecified vessel [...] 7:33 AM CDT 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[place] heart with stable angina pectoris, unspecified vessel [...] POINT OF CARE (11/23/2018 2:11 PM CDT) [facility] Glucose WB/POC 192(H) 70 - 106 mg/dL 11/26/2018 10:39 AM CDT [facility] Specimen Type UNKNOWN SAMPLE TYPE 11/26/2018 10:39 AM CDT [facility] Blood BLOOD SPECIMEN / Unknown 11/23/2018 2:11 PM CDT 11/26/2018 10:39 AM CDT Francisco Luque MD LAB - POINT OF CARE ORDERABLES Performing Organization Address [facility] Co de Phone Number [facility] [address] [place] [address] * GLUCOSE - POINT OF CARE (11/23/2018 12:00 PM CDT) Glucose WB/POC 90 70 - 106 mg/dL 11/23/2018 5:57 PM CDT [facility] Blood BLOOD SPECIMEN / Unknown 11/23/2018 12:00 PM CDT 11/23/2018 5:57 PM CDT Francisco Luque MD LAB - POINT OF CARE ORDERABLES Performing Organization Address [facility] de Phone Number [facility] [address] [place] [address] * (ABNORMAL) GLUCOSE - POINT OF CARE (11/23/2018 11:23 AM CDT) Glucose WB/POC 35(LL) 70 - 106 mg/dL 11/23/2018 5:57 PM CDT [facility] Blood BLOOD SPECIMEN / Unknown 11/23/2018 11:23 AM CDT 11/23/2018 5:57 PM CDT Francisco Luque MD LAB - POINT OF CARE ORDERABLES Performing Organization Address [facility] Co de Phone Number [facility] [address] [place] [address] * (ABNORMAL) GLUCOSE - POINT OF CARE (11/23/2018 11:19 AM CDT) Glucose WB/POC 31(LL) 70 - 106 mg/dL 11/23/2018 11:26 AM CDT [facility] Blood BLOOD SPECIMEN / Unknown 11/23/2018 11:19 AM CDT 11/23/2018 11:26 AM CDT Francisco Luque MD LAB - POINT OF CARE ORDERABLES Performing Organization Address [facility] de Phone Number [facility] [address] [place], [place] [phone] * GLUCOSE - POINT OF CARE (11/23/2018 7:48 AM CDT) Glucose WB/POC 81 70 - 106 mg/dL 11/23/2018 11:51 PM CDT [facility] Blood BLOOD SPECIMEN / Unknown 11/23/2018 7:48 AM CDT 11/23/2018 11:51 PM CDT Francisco Luque MD LAB - POINT OF CARE ORDERABLES Performing Organization Address [facility] de Phone Number [facility] [address] [place] [address] * (ABNORMAL) HEMOGLOBIN A1C (11/23/2018 3:25 AM CDT) Hemoglobin A1c 7.5(H) 4.0 - 6.1 % 11/23/2018 4:12 AM CDT [facility] Estimated Average Glucose 169 mg/dL 11/23/2018 4:12 AM CDT [facility] Blood BLOOD SPECIMEN / Unknown Venipuncture / Unknown 11/23/2018 3:25 AM CDT 11/23/2018 3:57 AM CDT Narrative [facility] - 11/23/2018 4:12 AM CDT Attention clinician: ??Reference Range has changed. Francisco Luque MD LAB - CHEMISTRY SUSANNAH LEONE Performing Organization Address [facility] de Phone Number [facility] [address] [place] [address] * (ABNORMAL) BASIC METABOLIC PANEL (CALCIUM TOTAL) (11/23/2018 3:25 AM CDT) Glucose 195(H) 74 - 106 mg/dL 11/23/2018 5:10 AM CDT [facility] Sodium 135(L) 136 - 145 mmol/L 11/23/2018 5:10 AM CDT [facility] Potassium 3.8 3.5 - 5.1 mmol/L 11/23/2018 5:10 AM CDT [facility] Chloride 104 98 - 107 mmol/L 11/23/2018 5:10 AM CDT [facility] CO2 23 23 - 31 mmol/L 11/23/2018 5:10 AM CDT [facility] Calcium 8.3(L) 8.4 - 10.2 mg/dL 11/23/2018 5:10 AM CDT [facility] Anion Gap 8 8 - 16 mmol/L 11/23/2018 5:10 AM CDT [facility] BUN 56(H) 8.4 - 25.7 mg/dL 11/23/2018 5:10 AM CDT [facility] Creatinine 2.74(H) 0.73 - 1.18 mg/dL 11/23/2018 5:10 AM CDT [facility] eGFR by MDRD 25(L) >60 mL/min/1.7 3m2 11/23/2018 5:10 AM CDT [facility] eGFR by MDRD 30(L) >60 mL/min/1.7 3m2 11/23/2018 5:10 AM CDT [facility] Blood BLOOD SPECIMEN / Unknown Venipuncture / Unknown 11/23/2018 3:25 AM CDT 11/23/2018 4:37 AM CDT Francisco Luque MD LAB - CHEMISTRY [facility] Performing Organization Address City/[facility]/ZIP Co de Phone Number [facility] [address] [place], [place] [phone] * (ABNORMAL) GLUCOSE - POINT OF CARE (11/22/2018 9:29 PM CDT) [facility] Glucose WB/POC 469(HH) 70 - 106 mg/dL 11/22/2018 9:35 PM CDT [facility] Blood BLOOD SPECIMEN / Unknown 11/22/2018 9:29 PM CDT 11/22/2018 9:35 PM CDT Narrative [facility] - 11/22/2018 9:35 PM CDT CAPILLARY BLOOD Francisco Luque MD LAB - POINT OF CARE ORDERABLES [facility] [address] [place] [phone] * (ABNORMAL) GLUCOSE - POINT OF CARE (11/22/2018 4:55 PM CDT) Glucose WB/POC 427(H) 70 - 106 mg/dL 11/26/2018 10:06 AM CDT [facility] Specimen Type UNKNOWN SAMPLE TYPE 11/26/2018 10:06 AM CDT [facility] Blood BLOOD SPECIMEN / Unknown 11/22/2018 4:55 PM CDT 11/26/2018 10:06 AM CDT Francisco Luque MD LAB - POINT OF CARE ORDERABLES Performing Organization Address City/[facility]/ZIP Co de Phone Number [facility] [address] [place] [address] * (ABNORMAL) GLUCOSE - POINT OF CARE (11/22/2018 3:05 PM CDT) Glucose WB/POC 316(H) 70 - 106 mg/dL 11/22/2018 5:37 PM CDT [facility] Blood BLOOD SPECIMEN / Unknown 11/22/2018 3:05 PM CDT 11/22/2018 5:37 PM CDT Francisco Luque MD LAB - POINT OF CARE ORDERABLES Performing Organization Address [facility] Co de Phone Number [facility] [address] [place] [phone] * (ABNORMAL) GLUCOSE - POINT OF CARE (11/22/2018 12:14 PM CDT) Glucose WB/POC 123(H) 70 - 106 mg/dL 11/22/2018 12:15 PM CDT [facility] Blood BLOOD SPECIMEN / Unknown 11/22/2018 12:14 PM CDT 11/22/2018 12:15 PM CDT Francisco Luque MD LAB - POINT OF CARE ORDERABLES Performing Organization Address [facility]/ZIP Co de Phone Number [facility] [address] [place] [phone] * CARDIAC CATH PROCEDURE (11/22/2018 12:00 PM CDT) 11/22/2018 12:0 0 PM CDT Narrative Procedure Note Francisco Luque MD - 11/23/2018 3:23 AM CDT [facility] CARDIAC CATHETERIZATION PATIENT: JUVENAL GARVIN MR#: [id number] ADMIT DATE: 11/22/2018 CSN: [id number] PROCEDURE DATE: 11/22/2018 :1970 PHYSICIAN: Francisco Luque Jr., MD ROOM: [facility] REFERRING PHYSICIAN: Francisco Luque Jr., [...] sheath wasplaced in right femoral artery. A 5-Central African #4 Kranthi left coronary catheterwas advanced in the left coronary ostium and left coronary arteriograms were performed in multiple projections. This catheter was removed and exchangedfor 5-Central African #4 Kranthi right coronary catheter, was advanced in the right coronary ostium. Right coronary arteriography was performed in multiple projections. This catheter was removed. The decision was made to proceedwith intervention and therefore no left ventriculogram was performed to avoid excess dye in this patient with severe kidney disease. The arterial sheathwas exchanged for 6-Central African sheath followed by advancement of a 6-Central African #4Judkins right guide to the right coronary [...] descending artery. Injection of contrast reveals an alrzvmusedbyv12% stenosis and mid 90% stenosis and a [...] gentleman. FRANCISCO LUQUE JR., MD RPR/MODL #: [id number] cc: Francisco Luque Jr., MD MEDICAL/SURGICAL CARDIAC CATHETERIZATION - DP Francisco Luque MD CARDIAC SERVICES ORD ERABLES [facility] * GLUCOSE - POINT OF CARE (11/22/2018 9:30 AM CDT) Glucose WB/POC 70 70 - 106 mg/dL 11/22/2018 9:33 AM CDT [facility] Specimen Type CAPILLARY BLOOD 11/22/2018 9:33 AM CDT [facility] Blood BLOOD SPECIMEN / Unknown 11/22/2018 9:30 AM CDT 11/22/2018 9:33 AM CDT Francisco Luque MD LAB - POINT OF CARE ORDERABLES [facility] [address] [place] [address] * (ABNORMAL) BASIC METABOLIC PANEL (CALCIUM TOTAL) (11/22/2018 7:33 AM CDT) Glucose 45(LL) 74 - 106 mg/dL 11/22/2018 8:04 AM CDT [facility] Sodium 139 136 - 145 mmol/L 11/22/2018 8:04 AM CDT [facility] Potassium 4.6 3.5 - 5.1 mmol/L 11/22/2018 8:04 AM CDT [facility] Chloride 108(H) 98 - 107 mmol/L 11/22/2018 8:04 AM CDT [facility] CO2 21(L) 23 - 31 mmol/L 11/22/2018 8:04 AM CDT [facility] Calcium 9.1 8.4 - 10.2 mg/dL 11/22/2018 8:04 AM CDT [facility] Anion Gap 10 8 - 16 mmol/L 11/22/2018 8:04 AM CDT [facility] BUN 65(H) 8.4 - 25.7 mg/dL 11/22/2018 8:04 AM CDT [facility] Creatinine 3.04(H) 0.73 - 1.18 mg/dL 11/22/2018 8:04 AM CDT [facility] eGFR by MDRD 22(L) >60 mL/min/1.7 3m2 11/22/2018 8:04 AM CDT [facility] eGFR by MDRD 27(L) >60 mL/min/1.7 3m2 11/22/2018 8:04 AM CDT [facility] Blood BLOOD SPECIMEN / Unknown Venipuncture / Unknown 11/22/2018 7:33 AM CDT 11/22/2018 7:38 AM CDT Francisco Luque MD LAB - CHEMISTRY SUSANNAH LEONE [facility] Organization Address City/State/[facility] Co de Phone Number [facility] [address] [place] [address] documented in this encounter Visit Diagnoses Diagnosis 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[place] heart with stable angina pectoris, unspecified vessel or lesion type (HCC)- Primary Controlled type 2 diabetes mellitus without complication, with long-term current use of insulin (HCC) 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[place] heart with stable angina pectoris (HCC) documented [...] swallow. documented in this encounter Care Teams Motorcycle Deliverer Relationship Specialty Start Date End Date Jhonatan Bellamy MD [address] [place] [address] PCP - General Family Medicine 03/25/15 03/05/19 documented as of this encounter
--- OUTSIDE RECORDS SUMMARY | 2024-08-24 04:29 | XMS_ITS | Encounter Summary ---
Author Organization [facility] Address [address] [place] [phone] Phone Care Team Providers Care Production Machine Operator Name Role Phone Unavailable Primary Care Provider Unavailabl e Reason for Visit * Reason Onset Date Comments Med Refill 01/25/2019 Encounter Details Date Type Department Care Team (Late st Contact Info) Description 01/25/2019 Refill [facility] [address] [facility] [place] [address] Anabel Kingsley RN Social History Tobacco Use [...]
--- OUTSIDE RECORDS SUMMARY | 2024-08-24 04:29 | XMS_ITS | Encounter Summary ---
Author Organization [facility] Address [address] [place] [phone] Phone Care Team Providers Care Application Development Director Name Role Phone Unavailable Primary Care Provider Unavailabl e Reason for Visit * Reason Onset Date Comments Med Refill 02/18/2019 Encounter Details Date Type Department Care Team (Late st Contact Info) Description 02/18/2019 Refill [facility] [address] [facility] [place] [address] Anabel Kingsley RN Social History Tobacco Use [...]
--- OUTSIDE RECORDS SUMMARY | 2024-08-24 04:29 | XMS_ITS | Encounter Summary ---
Author Organization [facility] Address [address] [place] [phone] Phone Care Team Providers Care Process Manufacturing Engineer Name Role Phone Unavailable Primary Care Provider Unavailabl e Reason for Visit * Reason Comments Med Refill Encounter Details Date Type Department Care Team (Late st Contact Info) Description 01/25/2019 Refill [facility] [address] [facility] [place] [address] Leandro Reyes MD [address] [address] Social History Tobacco Use Types [...]
--- OUTSIDE RECORDS SUMMARY | 2024-08-24 04:29 | XMS_ITS | Encounter Summary ---
Author Organization [facility] Address [address] [place] [phone] Phone Care Team Providers Care Habitat Management Coordinator Name Role Phone Unavailable Primary Care Provider Unavailabl e Encounter Details Date Type Department Care Team (Late st Contact Info) Description 09/18/2019 Telephone [facility] [address] [facility] [place] [address] Leandro Reyes MD [address] [facility] [place] [address] Social History Tobacco Use Types [...] Sep 25 @ 10 am at his [facility]. documented in this encounter Plan of Treatment Not on file documented as of this encounter Visit Diagnoses Not on filedocumented in this encounter
--- OUTSIDE RECORDS SUMMARY | 2024-08-24 04:34 | XMS_ITS | Encounter Summary ---
Author Organization [facility] Address [address] [place] [address] Care Team Providers Care Music Mixer Name Role Phone Aditya Castro MD Primary Care Provider [phone] Encounter Details Date Type Department Care Team [...] on filedocumented in this encounter Care Teams Music Mixer Relationship Specialty Start Date End Date Aditya Castro MD PCP - General Student in an Organized Health Care Education/Training Program 09/11/18 documented as of this encounter
--- OUTSIDE RECORDS SUMMARY | 2024-08-24 04:34 | XMS_ITS | Encounter Summary ---
Author Organization [facility] Address [address] [place] [address] Care Team Providers Care Rn Geriatric Name Role Phone Aditya Castro MD Primary Care Provider [phone] Encounter Details Date Type Department Care Team [...] filedocumented in this encounter Care Teams Rn Geriatric Relationship Specialty Start Date End Date Aditya Castro MD PCP - General Student in an Organized Health Care Education/Training Program 09/11/18 documented as of this encounter
--- OUTSIDE RECORDS SUMMARY | 2024-08-24 04:34 | XMS_ITS | Encounter Summary ---
Author Organization [facility] Address [address] [place] [address] Care Team Providers Care Guest Services Officer Name Role Phone Aditya Castro MD Primary Care Provider [phone] Encounter Details Date Type Department Care Team [...] on filedocumented in this encounter Care Teams Guest Services Officer Relationship Specialty Start Date End Date Aditya Castro MD PCP - General Student in an Organized Health Care Education/Training Program 09/11/18 documented as of this encounter
--- OUTSIDE RECORDS SUMMARY | 2024-08-24 04:34 | XMS_ITS | Encounter Summary ---
Author Organization [facility] Address [address] [facility] Attn: Epic Prelude ADT [place] [address] Care Team Providers Care Dice Table Person Name Role Phone Aditya Castro MD Primary Care Provider [phone] Encounter Details Date Type Department Care Team [...] Coronavirus/COVID-19? No / Unsure 09/21/2022 11:32 AM GOLD TOOLER documented as of this encounter Plan of Treatment Not on file documented as of this encounter Visit Diagnoses Not on filedocumented in this encounter Care Teams Dice Table Person Relationship Specialty Start Date End Date Aditya Castro MD PCP - General Student in an Organized Health Care Education/Training Program 09/11/18 documented as of this encounter
--- OUTSIDE RECORDS SUMMARY | 2024-08-24 04:34 | XMS_ITS | Encounter Summary ---
Author Organization [facility] Address [address] [place] [address] Care Team Providers Care Deputy Sheriff Name Role Phone Aditya Castro MD Primary Care Provider [phone] Reason for Visit * Reason Comments Follow Up Encounter Details Date Type Department Care Team (Late st Contact Info) Description 02/10/2023 11:00 AM CDT Office Visit [facility] [place] Oncology and Hematology - [place] [address] [place] [address] [facility] [address] [place] [address] Fernando Schmid MD [address] [facility] [address] [place] [address] Chronic anemia (Primary Dx) Social [...] Body Mass Index 37.74 06/29/2022 6:00 PM PR MANAGER documented in this encounter Progress Notes * [...] Note: Added automatically from request for surgery [id number] Right upper quadrant pain 09/24/2020 Pre-transplant evaluation for kidney transplant 03/24/2020 Overview Note: Images from the original note were not included. Juvenal Rodriguez Pilo 1970 Referring Ammonia Distiller: Leandro Reyes Dialysis Info: Type: PD Time: 160 days (11/05/2019) Blood Type: A Body mass index is 37.8 kg/m??. ALERTS Digital Measurement Advisor: Vashti Lizama NP Past Medical History: Diagnosis Date Anemia Arthritis Arthropathy osteo. back and knees see Dr. Norton CAD (coronary artery disease) Community acquired pneumonia 2017 [facility] hospitalized with double pneumonia Congestive heart failure Coronary artery disease Diabetes mellitus type 1 teens dx when he was 13. Insulin since he was dx. Insulin pump currently with dexacom. 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 DM (diabetes mellitus) TYPE 1 DVT (deep venous thrombosis) 2017 [facility]. ESRD on peritoneal dialysis Gout History of blood transfusion 2017 during admission for IN HLD (hyperlipidemia) HTN (hypertension) Hypercholesteremia 5 years on med Hypertension 30's on medications. Kidney disease Myocardial infarction 2017 [facility]. Stent x1 placed. Neuropathy feet Obstructive [...] file Gets together: Not on file Attends bahai service: Not on file Active member of [...] 07/02/2020: Committee Discussion Details: Pt brought to [facility] to discuss his cardiac workup. Team [...] Impression: It is the impression of this delinquency prevention social worker that Juvenal Daigle has several positive [...] advised of safety concerns regarding immunosuppressants. Plan: trailhead maintenance worker to provide supportive services as needed. Patient appears to be a reasonable candidate for transplant from a psychosocial perspective. -Post transplant arrangement forms are needed prior to being listed. Psychiatric Consult Recommended: No Transplant Night Court Magistrate: Radha Roper LCSW RD:05/14/2020 BMI= 40.0, Class [...] Plavix and aspirin has been discontinued by nut dehydrator operator. End-stage renal disease on peritoneal dialysis. Anemia [...] unspecified documented in this encounter Care Teams Deputy Sheriff Relationship Specialty Start Date End Date Aditya Csatro MD PCP - General Student in an Organized Health Care Education/Training Program 09/11/18 documented as of this encounter
--- OUTSIDE RECORDS SUMMARY | 2024-08-24 04:34 | XMS_ITS | Encounter Summary ---
Author Organization [facility] Address [address] [place] [address] Care Team Providers Care Debrander Name Role Phone Aditya Castro MD Primary Care Provider [phone] Encounter Details Date Type Department Care Team [...] on filedocumented in this encounter Care Teams Debrander Relationship Specialty Start Date End Date Aditya Castro MD PCP - General Student in an Organized Health Care Education/Training Program 09/11/18 documented as of this encounter
--- OUTSIDE RECORDS SUMMARY | 2024-08-24 04:34 | XMS_ITS | Encounter Summary ---
Author Organization [facility] Address [address] [place] [address] Care Team Providers Care Sustainable Agriculture Specialist Name Role Phone Aditya Castro MD Primary Care Provider [phone] Encounter Details Date Type Department Care Team [...] on filedocumented in this encounter Care Teams Sustainable Agriculture Specialist Relationship Specialty Start Date End Date Aditya Castro MD PCP - General Student in an Organized Health Care Education/Training Program 09/11/18 documented as of this encounter
--- OUTSIDE RECORDS SUMMARY | 2024-08-24 04:34 | XMS_ITS | Encounter Summary ---
Author Organization [facility] Address [address] [place] [address] Care Team Providers Care Prepared Foods Production Team Member Name Role Phone Aditya Castro MD Primary Care Provider [phone] Encounter Details Date Type Department Care Team [...] on filedocumented in this encounter Care Teams Prepared Foods Production Team Member Relationship Specialty Start Date End Date Aditya Castro MD PCP - General Student in an Organized Health Care Education/Training Program 09/11/18 documented as of this encounter
--- OUTSIDE RECORDS SUMMARY | 2024-08-24 04:34 | XMS_ITS | Encounter Summary ---
Author Organization [facility] Address [address] [place] [address] Care Team Providers Care Financial Underwriter Name Role Phone Aditya Castro MD Primary Care Provider [phone] Encounter Details Date Type Department Care Team [...] on filedocumented in this encounter Care Teams Financial Underwriter Relationship Specialty Start Date End Date Aditya Castro MD PCP - General Student in an Organized Health Care Education/Training Program 09/11/18 documented as of this encounter
--- OUTSIDE RECORDS SUMMARY | 2024-08-24 04:34 | XMS_ITS | Encounter Summary ---
Author Organization [facility] Address [address] [place] [address] Care Team Providers Care Investment Accounting Clerk Name Role Phone Aditya Castro MD Primary Care Provider [phone] Encounter Details Date Type Department Care Team (Late st Contact Info) Description 02/13/2023 Orders Only [facility] Oncology and Hematology - [place] [address] [facility] [address] [place] [address] Fernando Schmid MD [address] [facility] [address] [place] [address] Social History Tobacco Use Types [...] on filedocumented in this encounter Care Teams Investment Accounting Clerk Relationship Specialty Start Date End Date Aditya Castro MD PCP - General Student in an Organized Health Care Education/Training Program 09/11/18 documented as of this encounter
--- OUTSIDE RECORDS SUMMARY | 2024-08-24 04:34 | XMS_ITS | Encounter Summary ---
Author Organization [facility] Address [address] [place] [address] Care Team Providers Care Wool Batting Worker Name Role Phone Aditya Castro MD Primary Care Provider [phone] Encounter Details Date Type Department Care Team [...] on filedocumented in this encounter Care Teams Wool Batting Worker Relationship Specialty Start Date End Date Aditya Castro MD PCP - General Student in an Organized Health Care Education/Training Program 09/11/18 documented as of this encounter
--- OUTSIDE RECORDS SUMMARY | 2024-08-24 04:34 | XMS_ITS | Encounter Summary ---
Author Organization [facility] Address [address] [place] [address] Care Team Providers Care Civil Engineer'S Aide Name Role Phone Aditya Castro MD Primary Care Provider [phone] Encounter Details Date Type Department Care Team [...] on filedocumented in this encounter Care Teams Civil Engineer'S Aide Relationship Specialty Start Date End Date Aditya Castro MD PCP - General Student in an Organized Health Care Education/Training Program 09/11/18 documented as of this encounter
--- OUTSIDE RECORDS SUMMARY | 2024-08-24 04:34 | XMS_ITS | Encounter Summary ---
Author Organization [facility] Address [address] [place] [address] Care Team Providers Care Civilian Technician Name Role Phone Aditya Castro MD Primary Care Provider [phone] Reason for Visit * Reason Comments Med Refill Encounter Details Date Type Department Care Team (Late st Contact Info) Description 07/15/2023 Refill [facility] [place] Oncology and Hematology - [place] [address] [facility] [address] [place] [address] Fernando Schmid MD [address] [facility] [address] [place] [address] Social History Tobacco Use Types [...] on filedocumented in this encounter Care Teams Civilian Technician Relationship Specialty Start Date End Date Aditya Castro MD PCP - General Student in an Organized Health Care Education/Training Program 09/11/18 documented as of this encounter
--- OUTSIDE RECORDS SUMMARY | 2024-08-24 04:34 | XMS_ITS | Encounter Summary ---
Author Organization [facility] Address [address] [place] [address] Care Team Providers Care Social Media Job Titles Name Role Phone Aditya Castro MD Primary Care Provider [phone] Encounter Details Date Type Department Care Team (Late st Contact Info) Description 08/10/2022 Abstract [facility] Oncology and Hematology - [place] [address] [phone] Lucinda Sr Social History Tobacco Use Types [...] on filedocumented in this encounter Care Teams Social Media Job Titles Relationship Specialty Start Date End Date Aditya Castro MD PCP - General Student in an Organized Health Care Education/Training Program 09/11/18 documented as of this encounter
--- OUTSIDE RECORDS SUMMARY | 2024-08-24 04:34 | XMS_ITS | Encounter Summary ---
Author Organization [facility] Address [address] [place] [address] Care Team Providers Care Halver Machine Operator Name Role Phone Aditya Castro MD Primary Care Provider [phone] Encounter Details Date Type Department Care Team (Late st Contact Info) Description 02/29/2024 Orders Only [facility] Oncology and Hematology - [place] [address] [place] [address] Josefina Rodríguez FNP [address] [facility] [address] [place] [address] Social History Tobacco Use Types [...] on filedocumented in this encounter Care Teams Halver Machine Operator Relationship Specialty Start Date End Date Aditya Castro MD PCP - General Student in an Organized Health Care Education/Training Program 09/11/18 documented as of this encounter
--- OUTSIDE RECORDS SUMMARY | 2024-08-24 04:34 | XMS_ITS | Encounter Summary ---
Author Organization [facility] Address [address] [place] [address] Care Team Providers Care Plaster Machine Tender Name Role Phone Aditya Castro MD Primary Care Provider [phone] Encounter Details Date Type Department Care Team [...] on filedocumented in this encounter Care Teams Plaster Machine Tender Relationship Specialty Start Date End Date Aditya Castro MD PCP - General Student in an Organized Health Care Education/Training Program 09/11/18 documented as of this encounter
--- OUTSIDE RECORDS SUMMARY | 2024-08-24 04:34 | XMS_ITS | Encounter Summary ---
Author Organization [facility] Address [address] [place] [address] Care Team Providers Care Knit Tubing Dyer Name Role Phone Aditya Castro MD Primary Care Provider [phone] Encounter Details Date Type Department Care Team [...] on filedocumented in this encounter Care Teams Knit Tubing Dyer Relationship Specialty Start Date End Date Aditya Castro MD PCP - General Student in an Organized Health Care Education/Training Program 09/11/18 documented as of this encounter
--- OUTSIDE RECORDS SUMMARY | 2024-08-24 04:34 | XMS_ITS | Encounter Summary ---
Author Organization [facility] Address [address] [place] [address] Care Team Providers Care Oil Distributor Tender Name Role Phone Aditya Castro MD Primary Care Provider [phone] Encounter Details Date Type Department Care Team [...] on filedocumented in this encounter Care Teams Oil Distributor Tender Relationship Specialty Start Date End Date Aditya Castro MD PCP - General Student in an Organized Health Care Education/Training Program 09/11/18 documented as of this encounter
--- OUTSIDE RECORDS SUMMARY | 2024-08-24 04:34 | XMS_ITS | Encounter Summary ---
Author Organization [facility] Address [address] [place] [address] Care Team Providers Care Dental Office Assistant Name Role Phone Aditya Castro MD Primary Care Provider [phone] Reason for Visit * Reason Comments Follow Up DVT Encounter Details Date Type Department Care Team (Late st Contact Info) Description 11/04/2022 10:45 AM CDT Video Visit [facility] Oncology and Hematology - [place] [address] [place] [phone] Karri Ortiz MD [address] [place] [phone] History of deep vein thrombosis (Primary Dx) [...] bleeding and bruising. No other new complaints. Repeat [...] 2 times daily. 30 Tablet 0 peg [id number]-fjhltril 1-0.2-0.2 % solution Administer 1 Drop in both eyes 4 times daily. Insulin [place], Disposable, (TRUEPLUS PEN NEEDLE) 31 gauge x [...] tablet Take 30 mg by mouth daily early childhood education specialist. clopidogrel (PLAVIX) 75 mg Tablet Take 75 [...] dysuria; no frequency; no hesitancy; no hematuria RESEARCH NEUROPSYCHOLOGIST: Musculosketetal: Patient did not mention bone pain; [...] and aspirin. He will follow-up with a diazo technician. End-stage renal disease. Patient is on [...] embolism documented in this encounter Care Teams Dental Office Assistant Relationship Specialty Start Date End Date Aditya Castro MD PCP - General Student in an Organized Health Care Education/Training Program 09/11/18 documented as of this encounter
--- OUTSIDE RECORDS SUMMARY | 2024-08-24 04:34 | XMS_ITS | Encounter Summary ---
Author Organization [facility] FERNANDO Kurtz [facility] Address [address] [place] [address] Care Team Providers Care Drapery Cutter Name Role Phone Aditya Castro MD Primary Care Provider [phone] Encounter Details Date Type Department Care Team (Late st Contact Info) Description 09/22/2022 Orders Only [facility] Oncology and Hematology - [place] [address] [place] [phone] Lucinda Sr History of deep vein thrombosis [...] Coronavirus/COVID-19? No / Unsure 09/21/2022 11:32 AM PHARMACY TECHNICIAN ASSISTANT documented as of this encounter Plan of Treatment Not on file documented as of this encounter Visit Diagnoses Diagnosis History of deep vein thrombosis Personal history of venous thrombosis and embolism documented in this encounter Care Teams Drapery Cutter Relationship Specialty Start Date End Date Aditya Castro MD PCP - General Student in an Organized Health Care Education/Training Program 09/11/18 documented as of this encounter
--- OUTSIDE RECORDS SUMMARY | 2024-08-24 04:34 | XMS_ITS | Encounter Summary ---
Author Organization [facility] Address [address] [place] [address] Care Team Providers Care Photographer Aerial Name Role Phone Aditya Castro MD Primary Care Provider [phone] Encounter Details Date Type Department Care Team (Late st Contact Info) Description 10/27/2022 Orders Only [facility] Oncology and Hematology - [place] [address] [phone] Lucinda Sr History of deep vein thrombosis [...] embolism documented in this encounter Care Teams Photographer Aerial Relationship Specialty Start Date End Date Aditya Castro MD PCP - General Student in an Organized Health Care Education/Training Program 09/11/18 documented as of this encounter
--- OUTSIDE RECORDS SUMMARY | 2024-08-24 04:34 | XMS_ITS | Encounter Summary ---
Author Organization [facility] Address [address] [place] [address] Care Team Providers Care Vanstone Machine Operator Name Role Phone Aditya Castro MD Primary Care Provider [phone] Encounter Details Date Type Department Care Team [...] on filedocumented in this encounter Care Teams Vanstone Machine Operator Relationship Specialty Start Date End Date Aditya Castro MD PCP - General Student in an Organized Health Care Education/Training Program 09/11/18 documented as of this encounter
--- OUTSIDE RECORDS SUMMARY | 2024-08-24 04:34 | XMS_ITS | Encounter Summary ---
Author Organization [facility] Address [address] [place] [address] Care Team Providers Care Kitchen Chef Name Role Phone Aditya Castro MD Primary Care Provider [phone] Reason for Visit * Reason Onset Date Comments Medication Refill 09/23/2022 Encounter Details Date Type Department Care Team (Late st Contact Info) Description 09/23/2022 Refill [facility] Oncology and Hematology - [place] [address] [facility] [address] [place] [address] Fernando Schmid MD [address] [facility] [address] [place] [address] Social History Tobacco Use Types [...] Coronavirus/COVID-19? No / Unsure 09/21/2022 11:32 AM TERMITE TREATER documented as of this encounter Plan of Treatment Not on file documented as of this encounter Visit Diagnoses Not on filedocumented in this encounter Care Teams Kitchen Chef Relationship Specialty Start Date End Date Aditya Castro MD PCP - General Student in an Organized Health Care Education/Training Program 09/11/18 documented as of this encounter
--- OUTSIDE RECORDS SUMMARY | 2024-08-24 04:34 | XMS_ITS | Encounter Summary ---
Author Organization [facility] Address [address] [place] [address] Care Team Providers Care Banker Mason Name Role Phone Aditya Castro MD Primary Care Provider [phone] Encounter Details Date Type Department Care Team [...] on filedocumented in this encounter Care Teams Banker Mason Relationship Specialty Start Date End Date Aditya Castro MD PCP - General Student in an Organized Health Care Education/Training Program 09/11/18 documented as of this encounter
--- OUTSIDE RECORDS SUMMARY | 2024-08-24 04:34 | XMS_ITS | Encounter Summary ---
Author Organization [facility] Address [address] [place] [address] Care Team Providers Care Aerologist Name Role Phone Aditya Castro MD Primary Care Provider [phone] Encounter Details Date Type Department Care Team [...] on filedocumented in this encounter Care Teams Aerologist Relationship Specialty Start Date End Date Aditya Castro MD PCP - General Student in an Organized Health Care Education/Training Program 09/11/18 documented as of this encounter
--- OUTSIDE RECORDS SUMMARY | 2024-08-24 04:34 | XMS_ITS | Encounter Summary ---
Author Organization [facility] [facility] Address [address] [place] [address] Care Team Providers Care Director Of Labor And Delivery Name Role Phone Aditya Castro MD Primary Care Provider [phone] Reason for Referral * Radiology Services (Routine) - Closed Specialty Diagnoses / Procedures Referred By Contac t Referred To Contact Diagnoses History of deep vein thrombosis Procedures US VENOUS DOPPLER LEG BILATERAL Fernando Schmid MD [address] [place] [address] [place] [address] Referral ID Status Reason Start Date Expiration Date V isits Requested Visits Authorized [id number] Closed [facility] CTS 09/21/2022 10/22/2023 1 1 [place] TECHNICIAN Reason for Visit * Reason Comments Establish Care Encounter Details Date Type Department Care Team (Late st Contact Info) Description 09/21/2022 11:45 AM BOTANY TECHNICIAN Office Visit [facility] Oncology and Hematology [facility] [address] [facility] [address] [place] [address] Fernando Schmid MD [address] [place] [address] History of deep vein thrombosis [...] Coronavirus/COVID-19? No / Unsure 09/21/2022 11:32 AM BOTANY TECHNICIAN documented as of this encounter Last Filed Vital Signs Vital Sign Reading Time Taken Comments Blood Pressure 131/50 09/21/2022 11:43 AM BOTANY TECHNICIAN Pulse 70 09/21/2022 11:43 AM BOTANY TECHNICIAN Temperature 36.7 ??C (98 ??F) 09/21/2022 11:43 AM BOTANY TECHNICIAN Respiratory Rate 16 09/21/2022 11:43 AM BOTANY TECHNICIAN Oxygen Saturation 95% 09/21/2022 11:43 AM BOTANY TECHNICIAN Inhaled Oxygen Concentration - - Weight 124 kg (273 lb 4.8 oz) 09/21/2022 11:43 A M BOTANY TECHNICIAN Height - - Body Mass Index 39.21 06/29/2022 6:00 PM BOTANY TECHNICIAN documented in this encounter Progress Notes * [...] 2 times daily. 30 Tablet 0 peg 609-arsacybqbdyh-dwtaeedd 1-0.2-0.2 % solution Administer 1 Drop in both eyes 4 times daily. Insulin Barnett, Disposable, (TRUEPLUS PEN NEEDLE) 31 gauge x [...] dysuria; no frequency; no hesitancy; no hematuria LEARNING SUPPORT SERVICES DIRECTOR: Musculosketetal: Patient did not mention bone pain; [...] and aspirin. He will follow-up with a raveler. End-stage renal disease. Patient is on peritoneal [...] of the total time spent counseling patient [id number]. CC:?Aditya Castro MD [place] TECHNICIAN documented in this encounter Plan of [...] embolism documented in this encounter Care Teams Director Of Labor And Delivery Relationship Specialty Start Date End Date Aditya Castro MD PCP - General Student in an Organized Health Care Education/Training Program 09/11/18 documented as of this encounter
--- OUTSIDE RECORDS SUMMARY | 2024-08-24 04:35 | XMS_ITS | Encounter Summary ---
Author Organization [facility] [employer] [facility] Address [address] [place] [address] Care Team Providers Care Pull Socket Assembler Name Role Phone Aditya Castro MD Primary Care Provider [phone] Reason for Visit * Reason Onset Date Comments Needs Orders Written 07/30/2019 Encounter Details Date Type Department Care Team (Late st Contact Info) Description 07/30/2019 Telephone [facility] Oncology and Hematology - [place] [address] [place] [address] [facility] 200 [place] [address] Fernando Schmid MD [address] [facility] [address] [place] [address] Needs Orders Written Social History [...] to have for insurance approval for procrit. E HANDLING TECHNICIAN documented in this encounter Plan of [...] Schmid MD CHEMISTRY ORDERABLES Performing Organization Address City/[facility] Co de Phone Number NON [facility] documented in this encounter Visit Diagnoses Diagnosis Anemia of chronic renal failure, stage 4 (severe)- Primary Anemia in stage 4 chronic kidney disease documented in this encounter Care Teams Pull Socket Assembler Relationship Specialty Start Date End Date Aditya Castro MD PCP - General Student in an Organized Health Care Education/Training Program 09/11/18 documented as of this encounter
--- OUTSIDE RECORDS SUMMARY | 2024-08-24 04:35 | XMS_ITS | Encounter Summary ---
Author Organization [facility] Address [address] [place] [address] Care Team Providers Care Heavy Rail Train Operator Name Role Phone Aditya Castro MD Primary Care Provider [phone] Encounter Details Date Type Department Care Team (Late st Contact Info) Description 04/26/2019 Orders Only [facility] Oncology and Hematology - [place] [address] [facility] 200 [place] [address] Fernando Schmid MD [address] [facility] [address] [place] [address] Anemia in stage 4 chronic [...] Schmid MD CHEMISTRY ORDERABLES Performing Organization Address City/[facility]/ZIP Co de Phone Number EXTERNAL LAB documented in this encounter Visit Diagnoses Diagnosis Anemia in stage 4 chronic kidney disease documented in this encounter Care Teams Heavy Rail Train Operator Relationship Specialty Start Date End Date Aditya Castro MD PCP - General Student in an Organized Health Care Education/Training Program 09/11/18 documented as of this encounter
--- OUTSIDE RECORDS SUMMARY | 2024-08-24 04:35 | XMS_ITS | Encounter Summary ---
Author Organization [facility] Address [address] [place] [address] Care Team Providers Care Christmas Tree Contractor Name Role Phone Aditya Castro MD Primary Care Provider [phone] Encounter Details Date Type Department Care Team (Late st Contact Info) Description 06/18/2019 Orders Only [facility] Oncology and Hematology - [place] [address] [facility] [address] [place] [address] Fernando Schmid MD [address] [facility] [address] [place] [address] Anemia in stage 4 chronic [...] Fernando Schmid MD HEMATOLOGY ORDERABLE S NON [facility] documented in this encounter Visit Diagnoses Diagnosis Anemia in stage 4 chronic kidney disease documented in this encounter Care Teams Christmas Tree Contractor Relationship Specialty Start Date End Date Aditya Castro MD PCP - General Student in an Organized Health Care Education/Training Program 09/11/18 documented as of this encounter
--- OUTSIDE RECORDS SUMMARY | 2024-08-24 04:35 | XMS_ITS | Encounter Summary ---
Author Organization [facility] NORMALIFEmee [facility] Address [address] [place] [address] Care Team Providers Care Bath Steward Name Role Phone Aditya Castro MD Primary Care Provider [phone] Reason for Visit * Reason Comments Follow Up 32 Month f/u Procrit Encounter Details Date Type Department Care Team (Late st Contact Info) Description 07/31/2019 8:45 AM ANNEALER Office Visit [facility] Oncology and Hematology - [place] [address] [facility] 200 [place] [address] Fernando Schmid MD [address] [facility] [address] [place] [address] Anemia of chronic renal failure, [...] Comments Blood Pressure 120/56 07/31/2019 9:00 AM ANNEALER Pulse 66 07/31/2019 9:00 AM ANNEALER Temperature 36.7 ??C (98.1 ??F) 07/31/2019 9:00 AM CS T Respiratory Rate - - Oxygen Saturation 97% 07/31/2019 9:00 AM ANNEALER Inhaled Oxygen Concentration - - Weight 117.9 kg (260 lb) 07/31/2019 9:00 AM ANNEALER Height 175.3 cm (5' 9 ) 07/31/2019 9:00 AM ANNEALER Body Mass Index 38.4 07/31/2019 9:00 AM ANNEALER documented in this encounter Progress Notes * [...] extremity DVT. Resolved. 07/31/2019 Fernando Schmid MD ALER documented in this encounter Plan of Treatment Not on file documented as of this encounter Results * BASIC METABOLIC PANEL (10/30/2019) Blood Fernando Schmid MD CHEMISTRY ORDERABLES NON [facility] * CBC WITH DIFFERENTIAL (10/16/2019) Blood Fernando Schmid MD HEMATOLOGY ORDERABLE S EXTERNAL LAB documented in this encounter Visit Diagnoses Diagnosis Anemia of chronic renal failure, stage 4 (severe)- Primary documented in this encounter Care Teams Bath Steward Relationship Specialty Start Date End Date Aditya Castro MD PCP - General Student in an Organized Health Care Education/Training Program 09/11/18 documented as of this encounter
--- OUTSIDE RECORDS SUMMARY | 2024-08-24 04:35 | XMS_ITS | Encounter Summary ---
Author Organization [email or web address] Address [address] [place] [address] Care Team Providers Care Audit Lead Name Role Phone Aditya Castro MD Primary Care Provider [phone] Encounter Details Date Type Department Care Team (Late st Contact Info) Description 07/31/2019 Orders Only [facility] Oncology and Hematology - [place] [address] [facility] 200 [place] [address] Fernando Schmid MD [address] [facility] [address] [place] [address] Anemia of chronic renal failure, [...] Schmid MD CHEMISTRY ORDERABLES Performing Organization Address City/[facility] Co de Phone Number NON [facility] * TRANSFERRIN RECEPTOR TFR SOLUBLE (08/15/2019) Blood Fernando Schmid MD CHEMISTRY ORDERABLES Performing Organization Address City/[facility] Co de Phone Number NON [facility] documented in this encounter Visit Diagnoses Diagnosis Anemia of chronic renal failure, stage 4 (severe) Anemia in stage 4 chronic kidney disease documented in this encounter Care Teams Audit Lead Relationship Specialty Start Date End Date Aditya Castro MD PCP - General Student in an Organized Health Care Education/Training Program 09/11/18 documented as of this encounter
--- OUTSIDE RECORDS SUMMARY | 2024-08-24 04:35 | XMS_ITS | Encounter Summary ---
Author Organization [facility] [employer] [facility] Address [address] [place] [address] Care Team Providers Care Mirror Specialist Name Role Phone Aditya Castro MD Primary Care Provider [phone] Reason for Visit * Reason Comments Follow Up 3 month f/u w/labs Encounter Details Date Type Department Care Team (Late st Contact Info) Description 10/30/2019 11:00 AM CDT Office Visit [facility] Oncology and Hematology - [place] [address] [facility] 200 [place] [address] Fernando Schmid MD [address] [facility] [address] [place] [address] Anemia in stage 4 chronic [...] extremity documented in this encounter Care Teams Mirror Specialist Relationship Specialty Start Date End Date Aditya Castro MD PCP - General Student in an Organized Health Care Education/Training Program 09/11/18 documented as of this encounter
--- OUTSIDE RECORDS SUMMARY | 2024-08-24 04:35 | XMS_ITS | Encounter Summary ---
Author Organization [facility] Address [address] [facility] Attn: Epic Prelude ADT [place] [address] Care Team Providers Care Funeral Prearrangement Counselor Name Role Phone Aditya Castro MD Primary Care Provider [phone] Encounter Details Date Type Department Care Team [...] on filedocumented in this encounter Care Teams Funeral Prearrangement Counselor Relationship Specialty Start Date End Date Aditya Castro MD PCP - General Student in an Organized Health Care Education/Training Program 09/11/18 documented as of this encounter
--- OUTSIDE RECORDS SUMMARY | 2024-08-24 04:35 | XMS_ITS | Encounter Summary ---
Author Organization [facility] Address [address] [facility] Attn: Epic Prelude ADT [place] [address] Care Team Providers Care Shoemaker Custom Name Role Phone Aditya Castro MD Primary Care Provider [phone] Encounter Details Date Type Department Care Team [...] Coronavirus/COVID-19? No / Unsure 07/02/2022 12:57 PM LIQUEFACTION PLANT OPERATOR documented as of this encounter Plan of Treatment Not on file documented as of this encounter Visit Diagnoses Not on filedocumented in this encounter Care Teams Shoemaker Custom Relationship Specialty Start Date End Date Aditya Castro MD PCP - General Student in an Organized Health Care Education/Training Program 09/11/18 documented as of this encounter
--- OUTSIDE RECORDS SUMMARY | 2024-08-24 04:35 | XMS_ITS | Encounter Summary ---
Author Organization [facility] Address [address] [place] [address] Care Team Providers Care Ventilation Worker Name Role Phone Aditya Castro MD Primary Care Provider [phone] Encounter Details Date Type Department Care Team (Late st Contact Info) Description 03/20/2019 Orders Only [facility] Oncology and Hematology - [place] [address] [facility] 200 [place] [address] Fernando Schmid MD [address] [facility] [address] [place] [address] Anemia in stage 4 chronic [...] Fernando Schmid MD HEMATOLOGY ORDERABLE S NON [facility] documented in this encounter Visit Diagnoses Diagnosis Anemia in stage 4 chronic kidney disease documented in this encounter Care Teams Ventilation Worker Relationship Specialty Start Date End Date Aditya Catsro MD PCP - General Student in an Organized Health Care Education/Training Program 09/11/18 documented as of this encounter
--- OUTSIDE RECORDS SUMMARY | 2024-08-24 04:35 | XMS_ITS | Encounter Summary ---
Author Organization [facility] Address [address] [place] [address] Care Team Providers Care E Business Specialist Name Role Phone Aditya Castro MD Primary Care Provider [phone] Encounter Details Date Type Department Care Team (Late st Contact Info) Description 04/05/2019 Orders Only [facility] Oncology and Hematology - [place] [address] [facility] 200 [place] [address] Fernando Schmid MD [address] [facility] [address] [place] [address] Anemia in stage 4 chronic [...] Fernando Schmid MD HEMATOLOGY ORDERABLE S NON [facility] documented in this encounter Visit Diagnoses Diagnosis Anemia in stage 4 chronic kidney disease documented in this encounter Care Teams E Business Specialist Relationship Specialty Start Date End Date Aditya Castro MD PCP - General Student in an Organized Health Care Education/Training Program 09/11/18 documented as of this encounter
--- OUTSIDE RECORDS SUMMARY | 2024-08-24 04:35 | XMS_ITS | Encounter Summary ---
Author Organization [facility] [employer]INDERGood World [employer] [facility] Address [address] [place] [address] Care Team Providers Care Medical Manager Name Role Phone Aditya Castro MD Primary Care Provider [phone] Encounter Details Date Type Department Care Team (Late st Contact Info) Description 01/28/2020 Orders Only [facility] Oncology and Hematology - [place] [address] [address] Ramona Santos RN Anemia in stage 4 [...] disease documented in this encounter Care Teams Medical Manager Relationship Specialty Start Date End Date Aditya Castro MD PCP - General Student in an Organized Health Care Education/Training Program 09/11/18 documented as of this encounter
--- OUTSIDE RECORDS SUMMARY | 2024-08-24 04:35 | XMS_ITS | Encounter Summary ---
Author Organization [facility]MAFunambol [facility] Address [address] [place] [address] Care Team Providers Care Clin Nurse Name Role Phone Aditya Castro MD Primary Care Provider [phone] Reason for Visit * Reason Onset Date Comments Needs Orders Written 07/30/2019 Encounter Details Date Type Department Care Team (Late st Contact Info) Description 07/30/2019 Telephone [facility] Oncology and Hematology - [place] [address] [place] [address] [facility] 200 [place] [address] Fernando Schmid MD [address] [facility] [address] [place] [address] Needs Orders Written Social History [...] have for insurance approval for procrit. [place] MEDIA DEVELOPER documented in this encounter Plan of Treatment Not on file documented as of this encounter Visit Diagnoses Diagnosis Anemia of chronic renal failure, stage 4 (severe)- Primary Anemia in stage 4 chronic kidney disease documented in this encounter Care Teams Clin Nurse Relationship Specialty Start Date End Date Aditya Castro MD PCP - General Student in an Organized Health Care Education/Training Program 09/11/18 documented as of this encounter
--- OUTSIDE RECORDS SUMMARY | 2024-08-24 04:35 | XMS_ITS | Encounter Summary ---
Author Organization [facility] [employer] [facility] Address [address] [place] [address] Care Team Providers Care Mask Layout Designer Name Role Phone Aditya Castro MD Primary Care Provider [phone] Encounter Details Date Type Department Care Team (Late st Contact Info) Description 04/15/2019 Telephone [facility] Oncology and Hematology - [place] [address] [facility] 200 [place] [address] Fernando Schmid MD [address] [facility] [address] [place] [address] Social History Tobacco Use Types [...] on filedocumented in this encounter Care Teams Mask Layout Designer Relationship Specialty Start Date End Date Aditya Castro MD PCP - General Student in an Organized Health Care Education/Training Program 09/11/18 documented as of this encounter
--- OUTSIDE RECORDS SUMMARY | 2024-08-24 04:35 | XMS_ITS | Encounter Summary ---
Author Organization [facility] Address [address] [place] [address] Care Team Providers Care Thread Winder Automatic Name Role Phone Aditya Castro MD Primary Care Provider [phone] Encounter Details Date Type Department Care Team (Latest Contact Info) Description 06/29/2022 2:35 PM PROTOZOOLOGY TEACHER - 07/08/2022 1:46 PM PROTOZOOLOGY TEACHER Hospital Encounter [facility] Comprehensive Unit [address] [place] [id number] [place] [address] [place] [address] Acute on chronic HFrEF (heart [...] Coronavirus/COVID-19? No / Unsure 07/02/2022 12:57 PM PROTOZOOLOGY TEACHER documented as of this encounter Last Filed Vital Signs Vital Sign Reading Time Taken Comments Blood Pressure 102/63 07/08/2022 7:25 AM PROTOZOOLOGY TEACHER Pulse 72 07/08/2022 7:25 AM PROTOZOOLOGY TEACHER Temperature 36.8 ??C (98.3 ??F) 07/08/2022 4:42 AM CS T Respiratory Rate 16 07/08/2022 7:25 AM PROTOZOOLOGY TEACHER Oxygen Saturation 98% 07/08/2022 7:25 AM PROTOZOOLOGY TEACHER Inhaled Oxygen Concentration - - Weight 116.1 kg (256 lb) 07/08/2022 9:00 AM PROTOZOOLOGY TEACHER Height 177.8 cm (5' 10 ) 06/29/2022 6:00 PM PROTOZOOLOGY TEACHER Body Mass Index 36.73 06/29/2022 6:00 PM PROTOZOOLOGY TEACHER documented in this encounter Discharge Summaries * [...] BEN on CPAP who initially presented to [facility] for n/v and chest pain. Per Pt he had 3 days of generalized weakness, chills, ROONEY, n/v, chest pain relieved by sublingual ntg. His labs were notable for trop 1.0-->1.09-->0.729, BNP 61901. He had a CT CAP showing cholelithiasis [...] as optimal treatment. Pt was transfered to [place] on 06/05. Upon arrival EKG showed sinus [...] medically appropriate, he was tr ansferred to [facility] for comprehensive rehabilitation on 06/29/22. The patient was admitted to [facility] to undergo intensive inpatient rehabilitation for functional [...] mainly, min LE drsg and foot wear. AMMUNITION SUPERVISOR: min for memory and PS. Goals: progressing well, reaching CGA-SBA; continue to address his medical stability, orthostasis, strengthening, endurance, balance to reach mod I at dc ELOS: 07/09 [facility] PT, OT, AMMUNITION SUPERVISOR, RN. Discharge Destination: home Condition: stable Discharge [...] MD Quantity: 30 Tablet Refills: 0 peg 990-pxcjsfurmavm-nulgrdyl 1-0.2-0.2 % solution Administer 1 Drop in [...] here. Take 30 mg by mouth daily beef lugger. Refills: 0 CONTINUE taking these medications aspirin 81 mg Tablet, Chewable Commonly known as: JOSEPH CHEWABLE Take 81 mg by mouth daily. Refills: 0 * TRUEplus Pen Needle 31 gauge x 5/16 Needle TRUEplus Pen Needle 31 gauge x 5/16 Refills: 0 Generic drug: Insulin Glidden (Disposable) * BD Ultra-Fine Short Pen Needle 31 gauge x 5/16 Needle U ONE PEN NEEDLE TO INJ INSULIN SC QID Refills: 1 Generic drug: Insulin Glidden (Disposable) calcitRIOL 0.25 mcg capsule Commonly known [...] Your Medications These medications were sent to [id number] - [place], [place] - [address] [place] [facility] [phone], [place] [address] atorvastatin 80 mg tablet calcium acetate 667 mg Tablet tablet doxycycline monohydrate 50 mg Capsule metoprolol tartrate 25 mg tablet Please take the prescriptions given to you during your stay and have them filled at any pharmacy. You don't need a prescription for these medications peg 876-vfbkmembbmbs-svtrafzt 1-0.2-0.2 % solution Recommended Follow up: PCP, Aditya Lara MD [phone] Cardiology Endocrinology Srinivas Jon MD CC: Aditya Lara MD OZOOLOGY TEACHER documented in this encounter Discharge Instructions * Discharge Instructions* Srinivas Jon MD - 07/07/2022 11:00 AM PROTOZOOLOGY TEACHER Discharge: home Condition: stable Recommended diet: Renal Diet/Diabetic Diet Recommended activity: activity as tolerated Follow up: PCP, Aditya Lara MD [phone] Cardiology Endocrinology Post Discharge Safety Recommendations No [...] wound clean and dry CONTINUED THERAPY and/or SENIOR LIVING CARE: Home Health - [facility] - . They will call you for your first visit. Physical Therapy Occupational Therapy Speech Therapy DURABLE MEDICAL EQUIPMENT : Your prescription for a walker has been sent to [facility] [phone]. If there are problems please contact them. Your equipment (walker) was provided to you prior to discharge. Activity Status: Activity Assist Needed Screening: Supervision;With stand by assist (07/07/22 0900) Transfers: Modified [place], Supervision, with gait belt, and with walker Upper body dressing: Independent Lower body dressing: Modified [place] Bath: Supervision seated (recommend purchasing shower chair- can order on Nicole Pacheco, JOHNNIE, Chad) [facility] FAX: [phone] [facility] Wax Bleacher: Carey Lo LMSW OZOOLOGY TEACHER documented in this encounter Medications at Time [...] 2 times daily. 30 Tablet 07/07/2022 peg 104-mouexoycuuyk-opgkx rin 1-0.2-0.2 % solution Administer 1 Drop in both eyes 4 times daily. 07/07/2022 Insulin Glidden, Disposable, (TRUEPLUS PEN NEEDLE) 31 gauge x [...] tablet Take 30 mg by mouth daily beef lugger. clopidogrel (PLAVIX) 75 mg Tablet Take 75 [...] pt left with his brother at 1:43pm OZOOLOGY TEACHER * Srinivas Jon MD - 07/08/2022 11:02 AM CST REHAB/PMA&R DAILY PROGRESS NOTE Date: 07/08/2022 Time: 11:02 AM Subjective: Slept, No overnight events. No new issues. IM and renal input appreciated. ESRD on PD. Insulin pump per home regimen. Eucerin for dry skin. Completed IP therapy, reached CGA-SBA. Dc home today after therapy. Meds e- scribed. [facility] ordered. Pt is aware. Function status and progress towards rehab goals: PT: ambulated 150' with WWR and CGA/SBA. Denies any dizziness/lightheadedness. OT: CGA mainly, min LE drsg and foot wear. AMMUNITION SUPERVISOR: min for memory and PS. Goals: met, reached CGA-SBA; ELOS: 07/09 [facility] PT, OT, AMMUNITION SUPERVISOR, RN. Review of System: No fever, nausea/vomiting, [...] PA 667 mg at 07/08/22 0730 peg 552-thvpbhyrpfim-xgakffmb 1-0.2-0.2 % ophthalmic solution 1 Drop 1 [...] dose injection QID WITH meals and HS vAni Clifford PA 6.6 Units at 07/07/22 1700 [...] Code: full F/u: PCP, Aditya Lara MD [phone] Cardiology Endocrinology Srinivas Jon MD OZOOLOGY TEACHER * Conrad Dumont MD - 07/08/2022 10:06 [...] overnight was 99 ??F. PD management continues. Dwtds-pz-sdaf glucoses are elevated patient is following endocrine's [...] crucial and indicated. 06/29/2022 - Admission to [facility] - (Admission Data below). DAPT on ASA and Plavix. Pt appears ill. Pt with PD cath and DM pump. Discussed care at length with bedside RN and RESPlead. On going aggressive medical mgt continues to optimize pt for continued success in the comprehensive rehab course. Complex needs are noted. Reviewed extensive records from [facility] and daughter says BIPAP settings. Assessment and [...] reflux disease without esophagitis Dystrophia unguium Dysphagia- AMMUNITION SUPERVISOR to assess and follow Cardiogenic shock Anemia [...] PA 667 mg at 07/08/22 0730 peg 624-dnfraylkmglu-jyrewfur 1-0.2-0.2 % ophthalmic solution 1 Drop 1 [...] male who recently has been admitted to [facility] for comprehensive rehabilitation - multiple complex medical issues will impact medical management throughout the acute inpatient rehabilitation process. Pt has a significant medical history including but not limited to CHF- EF 50%, Afib, HTN, CAD, T1DM, ESRD on PD, HLD, GERD, hyperparathyroidism, DDD, OA, gout, BEN on CPAP, who initially presented to [facility] for n/v, onset three days, with associated chest pain, generalized weakness, chills, ROONEY. Symptoms were relieved with sublingual ntg. His labs were notable for trop 1.0-->1.09-->0.729, BNP 40127. He had a CT CAP showing cholelithiasis [...] as optimal treatment. Pt was transfered to [place] on 06/05. Upon arrival EKG showed sinus [...] (most recent): No results found for: HGBA1C, [id number] LIPID panel result (most recent): No results [...] LESLY Ayala MD Internal Medicine Director // OZOOLOGY TEACHER * Shawn Silva RN - 07/08/2022 6:13 [...] side effects oftheir medication Shawn Silva RN OZOOLOGY TEACHER * Filomena Sibley RN - 07/07/2022 7:47 PM CST Patient alert and oriented, timeout completed and consent given for CCPD prior to connection. CCPD Connected at 19:30. Dressing changed per protocol no signs and symptoms of infection on exit site. Report given to primary nurse,CCPD approximate end time is 06:00 next morning. OZOOLOGY TEACHER * Jasmin Bradley MD - 07/07/2022 5:00 [...] 07/07/2022 1920 Gross per 24 hour Intake 61675 ml Output 1069 ml Net 96647 ml Examination: RRR, CTA Soft, NT , [...] TIBC, FERRITIN, Lab Results Component Value Date [id number] 1,178 06/30/2022 , No results found for: [...] home CCPD regimen and follow his primary accounting consultant after discharge HLD, CAD, AMI, Acute on [...] up closely with you. JASMIN BRADLEY MD [facility] Office [phone] OZOOLOGY TEACHER * Girish Arreola - 07/07/2022 3:50 PM [...] and for his family. Chaplain Bernabe Arreola Commercial Makeup Artist II Extension:[phone] OZOOLOGY TEACHER * Cnorad Dumont MD - 07/07/2022 11:45 AM CST [...] overnight was 99 ??F. PD management continues. Ppkdl-fq-honh glucoses are elevated patient is following endocrine's [...] crucial and indicated. 06/29/2022 - Admission to [facility] - (Admission Data below). DAPT on ASA and Plavix. Pt appears ill. Pt with PD cath and DM pump. Discussed care at length with bedside RN and RESPlead. On going aggressive medical mgt continues to optimize pt for continued success in the comprehensive rehab course. Complex needs are noted. Reviewed extensive records from [facility] and daughter says BIPAP settings. Assessment and [...] reflux disease without esophagitis Dystrophia unguium Dysphagia- AMMUNITION SUPERVISOR to assess and follow Cardiogenic shock Anemia [...] 40 mEq 40 mEq ONE time only vAni Clifford PA 40 mEq at 07/01/22 1100 calcium acetate (CALPHRON) tablet 667 mg 667 mg TID BEFORE meals Avni Clifford PA 667 mg at 07/07/22 0842 peg 919-cgoxebszviom-weztbbpp 1-0.2-0.2 % ophthalmic solution 1 Drop 1 [...] male who recently has been admitted to [facility] for comprehensive rehabilitation - multiple complex medical issues will impact medical management throughout the acute inpatient rehabilitation process. Pt has a significant medical history including but not limited to CHF- EF 50%, Afib, HTN, CAD, T1DM, ESRD on PD, HLD, GERD, hyperparathyroidism, DDD, OA, gout, BEN on CPAP, who initially presented to [facility] for n/v, onset three days, with associated chest pain, generalized weakness, chills, ROONEY. Symptoms were relieved with sublingual ntg. His labs were notable for trop 1.0-->1.09-->0.729, BNP 02650. He had a CT CAP showing cholelithiasis [...] as optimal treatment. Pt was transfered to [place] on 06/05. Upon arrival EKG showed sinus [...] (most recent): No results found for: HGBA1C, [id number] LIPID panel result (most recent): No results [...] LESLY Ayala MD Internal Medicine Director // OZOOLOGY TEACHER * Srinivas Jon MD - 07/07/2022 8:05 AM CST REHAB/PMA&R DAILY PROGRESS NOTE Date: 07/07/2022 Time: 8:05 AM Subjective: Slept, eating ok. Occasional lightheadedness in therapy, improved. IM and renal input appreciated. ESRD on PD. Insulin pump per home regimen. Eucerin for dry skin. Progressing well in therapy, reaching CGA-SBA. Planning dc home on 07/09 with [facility] and supervision. HHC ordered. Pt is aware. Function status and progress towards rehab goals: PT: ambulated 150' with WWR and CGA/SBA. Denies any dizziness/lightheadedness. OT: CGA mainly, min LE drsg and foot wear. AMMUNITION SUPERVISOR: min for memory and PS. Goals: progressing well, reaching CGA-SBA; continue to address his medical stability, orthostasis, strengthening, endurance, balance to reach mod I at dc ELOS: 07/09 [facility] PT, OT, AMMUNITION SUPERVISOR, RN. Review of System: No fever, nausea/vomiting, [...] PA 667 mg at 07/06/22 1706 peg 728-aizkdcnghscp-ajpfiusr 1-0.2-0.2 % ophthalmic solution 1 Drop 1 [...] Code: full F/u: PCP, Aditya Lara MD [phone] Cardiology Endocrinology Srinivas Jon MD OZOOLOGY TEACHER * Kamryn Browning RN - 07/06/2022 10:40 [...] including pain med. Hooked to peritonealdialysis by Filomena around 7PM or so. Hourly rounding,uses call light and bed alarm.Needs attended t o. OZOOLOGY TEACHER * Filomena Sibley RN - 07/06/2022 7:35 PM CST Patient alert and oriented, timeout completed and consent given for CCPD prior to connection. CCPD Connected at 19:15. Dressing changed per protocol no signs and symptoms of infection on exit site. Report given to primary nurse,CCPD approximate end time is 05:40 next morning. OZOOLOGY TEACHER * Leonela Lantigua RN - 07/06/2022 6:14 [...] pump today. See communication note regarding dosing. OZOOLOGY TEACHER * Jasmin Bradley MD - 07/06/2022 6:00 [...] TIBC, FERRITIN, Lab Results Component Value Date [id number] 1,178 06/30/2022 , No results found for: [...] up closely with you. JASMIN BRADLEY MD [facility] [phone] OZOOLOGY TEACHER * Leonela Lantigua RN - 07/06/2022 5:32 [...] gave 5.45 units insulin. Current rate 0.8units/hr. OZOOLOGY TEACHER * Conrad Dumont MD - 07/06/2022 2:32 [...] overnight was 99 ??F. PD management continues. Hafks-rg-dtat glucoses are elevated patient is following endocrine's [...] crucial and indicated. 06/29/2022 - Admission to [facility] - (Admission Data below). DAPT on ASA and Plavix. Pt appears ill. Pt with PD cath and DM pump. Discussed care at length with bedside RN and RESPlead. On going aggressive medical mgt continues to optimize pt for continued success in the comprehensive rehab course. Complex needs are noted. Reviewed extensive records from [facility] and daughter says BIPAP settings. Assessment and [...] reflux disease without esophagitis Dystrophia unguium Dysphagia- AMMUNITION SUPERVISOR to assess and follow Cardiogenic shock Anemia [...] PA 667 mg at 07/06/22 1229 peg 672-hoyfwvrmzlfi-tmrnwdsv 1-0.2-0.2 % ophthalmic solution 1 Drop 1 [...] 12.5 Gram 12.5 Gram see admin instructions Avin Clifford PA dextrose 50% (D50) syringe 25 [...] Srinivas Jon MD 1 Tablet at 07/05/222012 Admission Data : CC: Debility/Cardiogenic shock/HTN HPI: Juvenal Daigle is a 51 y.o. male who recently has been admitted to [facility] for comprehensive rehabilitation - multiple complex medical issues will impact medical management throughout the acute inpatient rehabilitation process. Pt has a significant medical history including but not limited to CHF- EF 50%, Afib, HTN, CAD, T1DM, ESRD on PD, HLD, GERD, hyperparathyroidism, DDD, OA, gout, BEN on CPAP, who initially presented to [facility] for n/v, onset three days, with associated chest pain, generalized weakness, chills, ROONEY. Symptoms were relieved with sublingual ntg. His labs were notable for trop 1.0-->1.09-->0.729, BNP 20067. He had a CT CAP showing cholelithiasis [...] as optimal treatment. Pt was transfered to [place] on 06/05. Upon arrival EKG showed sinus [...] (most recent): No results found for: HGBA1C, [id number] LIPID panel result (most recent): No results [...] LESLY Ayala MD Internal Medicine Director // OZOOLOGY TEACHER * Srinivas Jon MD - 07/06/2022 12:52 PM CST REHAB/PMA&R DAILY PROGRESS NOTE Date: 07/06/2022 Time: 12:52 PM Subjective: Sleeping and eating ok. Mild lightheadedness in PT today. IM and renal input appreciated. ESRD on PD. Eucerin for dry skin. Progressing well in therapy. Recent labs reviewed. Planning dc home on 07/09 with [facility] and supervision. Pt is aware. Function status and progress towards rehab goals: PT: ambulated 100' in hallway and 50' in comp gym with WWR and CGA/SBA. Denies any dizziness/lightheadedness. OT: CGA mainly, min LE drsg and foot wear. AMMUNITION SUPERVISOR: min for memory and PS. Goals: continue to address his medical stability, orthostasis, strengthening, endurance, balance toreach mod I at dc ELOS: 07/09 [facility] PT, OT, AMMUNITION SUPERVISOR, RN. Review of System: No fever, nausea/vomiting, [...] PA 667 mg at 07/06/22 1229 peg 396-jwfpdujygepb-grwllebo 1-0.2-0.2 % ophthalmic solution 1 Drop 1 [...] Code: full F/u: PCP, Aditya Lara MD [phone] Cardiology Endocrinology Srinivas Jon MD OZOOLOGY TEACHER * Kamryn Browning RN - 07/05/2022 10:00 [...] replaced with new cartridge. Pt complaints of pain,[place] is given with all other meds. Hourly rounding,call light within reach , bed alarm on and low bed. Blood sugar checked. Bruised notedon his abdomen and dry & flaky skin. OZOOLOGY TEACHER * Marry Estrada RN - 07/05/2022 6:29 PM CST 07/04/22: I drain volume- 5 ml Total UF- 557 ml Effluent clear yellow 07/05/22: patient connected to peritoneal dialysis. Dressing changed earlier in the day. Patient is calm, alert and oriented x's 4. OZOOLOGY TEACHER * Jasmin Bradley MD - 07/05/2022 5:00 [...] TIBC, FERRITIN, Lab Results Component Value Date [id number] 1,178 06/30/2022 , No results found for: [...] up closely with you. JASMIN BRADLEY MD [facility] [phone] OZOOLOGY TEACHER * Conrad Dumont MD - 07/05/2022 2:10 [...] overnight was 99 ??F. PD management continues. Hfitp-mh-kyqb glucoses are elevated patient is following endocrine's [...] crucial and indicated. 06/29/2022 - Admission to [facility] - (Admission Data below). DAPT on ASA and Plavix. Pt appears ill. Pt with PD cath and DM pump. Discussed care at length with bedside RN and RESPlead. On going aggressive medical mgt continues to optimize pt for continued success in the comprehensive rehab course. Complex needs are noted. Reviewed extensive records from [facility] and daughter says BIPAP settings. Assessment and [...] reflux disease without esophagitis Dystrophia unguium Dysphagia- AMMUNITION SUPERVISOR to assess and follow Cardiogenic shock Anemia [...] mEq 40 mEq ONE time only Avni Cliffodr PA 40 mEq at 07/01/22 1100 calcium acetate (CALPHRON) tablet 667 mg 667 mg TID BEFORE meals Avni Clifford PA 667 mg at 07/05/22 1201 peg 047-zysplurecsug-ijluhpub 1-0.2-0.2 % ophthalmic solution 1 Drop 1 [...] 0.6 mg 0.6 mg every 48 hours Avin Clifford PA 0.6 mg at 07/04/22 0826 [...] male who recently has been admitted to [facility] for comprehensive rehabilitation - multiple complex medical issues will impact medical management throughout the acute inpatient rehabilitation process. Pt has a significant medical history including but not limited to CHF- EF 50%, Afib, HTN, CAD, T1DM, ESRD on PD, HLD, GERD, hyperparathyroidism, DDD, OA, gout, BEN on CPAP, who initially presented to [facility] for n/v, onset three days, with associated chest pain, generalized weakness, chills, ROONEY. Symptoms were relieved with sublingual ntg. His labs were notable for trop 1.0-->1.09-->0.729, BNP 87611. He had a CT CAP showing cholelithiasis [...] as optimal treatment. Pt was transfered to [place] on 06/05. Upon arrival EKG showed sinus [...] (most recent): No results found for: HGBA1C, [id number] LIPID panel result (most recent): No results [...] LESLY Ayala MD Internal Medicine Director // OZOOLOGY TEACHER * Srinivas Jon MD - 07/05/2022 11:19 [...] mainly, min LE drsg and foot wear. AMMUNITION SUPERVISOR: min for memory and PS. Goals: continue to address his medical stability, orthostasis, strengthening, endurance, balance toreach mod I at dc ELOS: 07/09 [facility] PT, OT, AMMUNITION SUPERVISOR, RN. Review of System: No fever, nausea/vomiting, [...] PA 667 mg at 07/05/22 0820 peg 654-svfnhfpyszoi-gqkgouoz 1-0.2-0.2 % ophthalmic solution 1 Drop 1 [...] Code: full F/u: PCP, Aditya Lara MD [phone] Cardiology Endocrinology Srinivas Jon MD OZOOLOGY TEACHER * Kamryn Browning RN - 07/04/2022 10:30 [...] checked QID. Took all meds,denies any pain. livestock ranch hand hooked him to the peritoneal machine around 8:15PM. Needs attended to. Hourly rounding,call light within reach and low. OZOOLOGY TEACHER * Filomena Sibley RN - 07/04/2022 8:36 PM CST Patient alert and oriented, timeout completed and consent given for CCPD prior to connection. CCPD Connected at 20:15. Dressing changed per protocol no signs and symptoms of infection on exit site. Report given to primary nurse,CCPD approximate end time is 06:30 next morning. OZOOLOGY TEACHER * Jasmin Brdaley MD - 07/04/2022 5:00 PM CST RENAL [...] TIBC, FERRITIN, Lab Results Component Value Date [id number] 1,178 06/30/2022 , No results found for: [...] up closely with you. JASMIN BRADLEY MD [facility] [phone] OZOOLOGY TEACHER * Maggie Eric LPN - 07/04/2022 4:45 [...] Patient Education on Medications Maggie Eric LPN OZOOLOGY TEACHER * Srinivas Jon MD - 07/04/2022 12:09 [...] PA 667 mg at 07/04/22 1109 peg 247-nxcfynmyfsdn-yycgxnpo 1-0.2-0.2 % ophthalmic solution 1 Drop 1 [...] Code: full F/u: PCP, Aditya Lara MD [phone] Cardiology Endocrinology Srinivas Jon MD OZOOLOGY TEACHER * Conrad Dumont MD - 07/04/2022 11:20 [...] overnight was 99 ??F. PD management continues. Qxzwn-fc-rkml glucoses are elevated patient is following endocrine's [...] crucial and indicated. 06/29/2022 - Admission to [facility] - (Admission Data below). DAPT on ASA and Plavix. Pt appears ill. Pt with PD cath and DM pump. Discussed care at length with bedside RN and RESPlead. On going aggressive medical mgt continues to optimize pt for continued success in the comprehensive rehab course. Complex needs are noted. Reviewed extensive records from [facility] and daughter says BIPAP settings. Assessment and [...] reflux disease without esophagitis Dystrophia unguium Dysphagia- AMMUNITION SUPERVISOR to assess and follow Cardiogenic shock Anemia [...] PA 667 mg at 07/04/22 1109 peg 467-wxudljqzarbt-elvoufdh 1-0.2-0.2 % ophthalmic solution 1 Drop 1 [...] 10 mg every 6 hours PRN Avni Clfiford PA albuterol (PROVENTIL,VENTOLIN) 2.5 mg /3 mL [...] male who recently has been admitted to [facility] for comprehensive rehabilitation - multiple complex medical issues will impact medical management throughout the acute inpatient rehabilitation process. Pt has a significant medical history including but not limited to CHF- EF 50%, Afib, HTN, CAD, T1DM, ESRD on PD, HLD, GERD, hyperparathyroidism, DDD, OA, gout, BEN on CPAP, who initially presented to [facility] for n/v, onset three days, with associated chest pain, generalized weakness, chills, ROONEY. Symptoms were relieved with sublingual ntg. His labs were notable for trop 1.0-->1.09-->0.729, BNP 67441. He had a CT CAP showing cholelithiasis [...] as optimal treatment. Pt was transfered to [place] on 06/05. Upon arrival EKG showed sinus [...] (most recent): No results found for: HGBA1C, [id number] LIPID panel result (most recent): No results [...] LESLY Ayala MD Internal Medicine Director // OZOOLOGY TEACHER * Tiffanie Aiken LPN - 07/04/2022 5:52 [...] effects of their medication Tiffanie Aiken LPN OZOOLOGY TEACHER * Jasmin Bradley MD - 07/03/2022 5:00 [...] TIBC, FERRITIN, Lab Results Component Value Date [id number] 1,178 06/30/2022 , No results found for: [...] up closely with you. JASMIN BRADLEY MD [facility] [phone] OZOOLOGY TEACHER * Leonela Lantigua RN - 07/03/2022 4:10 [...] one with 200units insulin. Site changed to [facility] . No compl noted to the old site. Rate was 0.8/hr. BG at 11:22 per our meter 316. At 12:16 bgwas 370 per pt meter and he gave himself 10.35units . Rate was 0.8units/hr.pt spent the afternoon up in criminal justice department chair with legs elevated. This afternoon pt c/o sore on his buttocks he had at [place]. Picture taken and camo/mepilex applied. No c/o pain. For dinner BG per our meter 368 at 4:31pm. At 4:51pm pt meter BG 373.Rate 0.8units per hr. Pt gave 7.2 units per Omnipod. At end of shift Dialysis nurse here setting up nightly PD. OZOOLOGY TEACHER * Srinivas Jon MD - 07/03/2022 1:15 [...] strengthening, endurance, balance toreach mod I at nh ELOS: re-eval on Mon. Review of System: [...] meals Avni Clifford PA 667 mg at 07/03/22 1215 peg 243-wrdpbwjqmibl-tjpuerks 1-0.2-0.2 % ophthalmic solution 1 Drop 1 [...] mg 0.4 mg every 5 minutes PRN vAni Clifford PA [Held by Provider] isosorbide mononitrate [...] Code: full F/u: PCP, Aditya Lara MD [phone] Cardiology Endocrinology Srinivas Jon MD OZOOLOGY TEACHER * Rosa Raya LPN - 07/03/2022 6:27 AM CST PD completed 0520 and disconnected, patient experienced routine night during this shift. Baseline functioning, interacting with nursing, medications administered and documented per MAR, safety and fall precautions followed, call- light in reach. OZOOLOGY TEACHER * Rosa Raya LPN - 07/03/2022 1:02 [...] effects of their medication Rosa Raya LPN OZOOLOGY TEACHER * Filomena Sibley RN - 07/02/2022 6:54 PM CST Patient alert and oriented, timeout completed and consent given for CCPD prior to connection. CCPD Connected at 18:35. Dressing changed per protocol no signs and symptoms of infection on exit site. Report given to primary nurse,CCPD approximate end time is 05:05 next morning. OZOOLOGY TEACHER * Leonela Lantigua RN - 07/02/2022 6:28 PM CST [...] nurse in room hooking up his PD. OZOOLOGY TEACHER * Jasmin Bradley MD - 07/02/2022 5:00 [...] 07/02/2022 1830 Gross per 24 hour Intake 63578 ml Output 2024 ml Net 18253 ml Examination: RRR, CTA Soft, NT , [...] TIBC, FERRITIN, Lab Results Component Value Date [id number] 1,178 06/30/2022 , No results found for: FOLATE, FOLATERBC, Lab Results Component Value Date CA 9.0 07/01/2022 PO4 5.3 (H) 07/01/2022 , Lab Results Component Value Date CREAT 9.56 (H) 07/01/2022 GFR 6 (L) 07/01/2022 , No results found for: RPR, RPRTITER, No results found for: CHOLTOT, HDL, LDLCALC, LDLDIRECT, TRIGLYCERIDE, No results found for: ESR, ESRPOC, SHAWN, ANASCREEN, ANATITER, RHEUMFACTOR, CRP, CRPHS, P1PWGGQWKAI, R7MZLHJJPFG, DNAAB, DNADSAB, CCPABIGG, Lab Results Component Value [...] up closely with you. JASMIN BRADLEY MD [facility] of Nephrology Office [phone] OZOOLOGY TEACHER * Conrad Dumont MD - 07/02/2022 1:05 [...] overnight was 99 ??F. PD management continues. Qrerp-ct-uhjj glucoses are elevated patient is following endocrine's [...] crucial and indicated. 06/29/2022 - Admission to [facility] - (Admission Data below). DAPT on ASA and Plavix. Pt appears ill. Pt with PD cath and DM pump. Discussed care at length with bedside RN and RESPlead. On going aggressive medical mgt continues to optimize pt for continued success in the comprehensive rehab course. Complex needs are noted. Reviewed extensive records from [facility] and daughter says BIPAP settings. Assessment and [...] reflux disease without esophagitis Dystrophia unguium Dysphagia- AMMUNITION SUPERVISOR to assess and follow Cardiogenic shock Anemia [...] PA 667 mg at 07/02/22 1214 peg 470-pmapanreprmk-foxeoxrb 1-0.2-0.2 % ophthalmic solution 1 Drop 1 Drop QID Avni Clifford PA 1 Drop at 07/02/22 1247 calcitRIOL [...] PA 5 mg at 06/30/22 0801 cloNIDine (CDCGBNLL-EDC-8) 0.1 mg/24 hr transdermal patch 1 Patch [...] male who recently has been admitted to [facility] for comprehensive rehabilitation - multiple complex medical issues will impact medical management throughout the acute inpatient rehabilitation process. Pt has a significant medical history including but not limited to CHF- EF 50%, Afib, HTN, CAD, T1DM, ESRD on PD, HLD, GERD, hyperparathyroidism, DDD, OA, gout, BEN on CPAP, who initially presented to [facility] for n/v, onset three days, with associated chest pain, generalized weakness, chills, ROONEY. Symptoms were relieved with sublingual ntg. His labs were notable for trop 1.0-->1.09-->0.729, BNP 89932. He had a CT CAP showing cholelithiasis [...] as optimal treatment. Pt was transfered to [place] on 06/05. Upon arrival EKG showed sinus [...] (most recent): No results found for: HGBA1C, QCKS0JOCW LIPID panel result (most recent): No results [...] LESLY Ayala MD Internal Medicine Director // OZOOLOGY TEACHER * Srinivas Jon MD - 07/02/2022 11:15 [...] PA 667 mg at 07/02/22 0753 peg 857-wdxzubvrvbqf-hbwytkcx 1-0.2-0.2 % ophthalmic solution 1 Drop 1 Drop QID Avni Clifford PA 1 Drop at 07/02/22 0756 calcitRIOL (ROCALTROL) capsule 0.25 mcg 0.25 mcg daily Avni Clifford PA 0.25 mcg at 07/02/22 0754 heparin injection 5,000 Units 5,000 Units every 8 hours Avni Clifford PA 5,000 Units at 07/02/22 0447 aspirin (OJSEPH CHEWABLE) chewable tablet 81 mg 81 mg [...] PA 5 mg at 06/30/22 0801 cloNIDine (HQAZJWYS-WHD-2) 0.1 mg/24 hr transdermal patch 1 Patch [...] Code: full F/u: PCP, Aditya Lara MD [phone] Cardiology Endocrinology Srinivas Jon MD OZOOLOGY TEACHER * Filomena Sibley RN - 07/01/2022 10:17 PM CST Patient alert and oriented, timeout completed and consent given for CCPD prior to connection. CCPD Connected at 19:42. Dressing changed per protocol no signs and symptoms of infection on exit site. Report given to primary nurse,CCPD approximate end time is 06:15 next morning. OZOOLOGY TEACHER * Jasmin Bradley MD - 07/01/2022 5:00 [...] 07/01/2022 1200 Gross per 24 hour Intake 88310 ml Output 1413 ml Net 60231 ml Examination: RRR, CTA Soft, NT , [...] TIBC, FERRITIN, Lab Results Component Value Date [id number] 1,178 06/30/2022 , No results found for: FOLATE, FOLATERBC, Lab Results Component Value Date CA 9.0 07/01/2022 PO4 5.3 (H) 07/01/2022 , Lab Results Component Value Date CREAT 9.56 (H) 07/01/2022 GFR 6 (L) 07/01/2022 , No results found for: RPR, RPRTITER, No results found for: CHOLTOT, HDL, LDLCALC, LDLDIRECT, TRIGLYCERIDE, No results found for: ESR, ESRPOC, SHAWN, ANASCREEN, ANATITER, RHEUMFACTOR, CRP, CRPHS, Q3MPULNBYMY, W2XXBXPRHQH, DNAAB, DNADSAB, CCPABIGG, Lab Results Component Value [...] blood pressure --Losartan 12.5 mg daily -- Fruit Culler 30 mg daily -- Metoprolol 25 mg [...] closely with you. JASMIN BRADLEY MD [facility] of Nephrology Office [phone] OZOOLOGY TEACHER * Conrad Dumont MD - 07/01/2022 11:46 [...] crucial and indicated. 06/29/2022 - Admission to [facility] - (Admission Data below). DAPT on ASA and Plavix. Pt appears ill. Pt with PD cath and DM pump. Discussed care at length with bedside RN and RESPlead. On going aggressive medical mgt continues to optimize pt for continued success in the comprehensive rehab course. Complex needs are noted. Reviewed extensive records from [facility] and daughter says BIPAP settings. Assessment and [...] reflux disease without esophagitis Dystrophia unguium Dysphagia- AMMUNITION SUPERVISOR to assess and follow Cardiogenic shock Anemia [...] PA 667 mg at 07/01/22 1130 peg 239-doogqvnuxfbm-jhhrfxmm 1-0.2-0.2 % ophthalmic solution 1 Drop 1 [...] PA 5 mg at 06/30/22 0801 cloNIDine (CCEEGPJM-LXC-2) 0.1 mg/24 hr transdermal patch 1 Patch [...] male who recently has been admitted to [facility] for comprehensive rehabilitation - multiple complex medical issues will impact medical management throughout the acute inpatient rehabilitation process. Pt has a significant medical history including but not limited to CHF- EF 50%, Afib, HTN, CAD, T1DM, ESRD on PD, HLD, GERD, hyperparathyroidism, DDD, OA, gout, BEN on CPAP, who initially presented to [facility] for n/v, onset three days, with associated chest pain, generalized weakness, chills, ROONEY. Symptoms were relieved with sublingual ntg. His labs were notable for trop 1.0-->1.09-->0.729, BNP 20306. He had a CT CAP showing cholelithiasis [...] as optimal treatment. Pt was transfered to [place] on 06/05. Upon arrival EKG showed sinus [...] (most recent): No results found for: HGBA1C, GJBA0HMOT LIPID panel result (most recent): No results [...] LESLY Ayala MD Internal Medicine Director // OZOOLOGY TEACHER * Srinivas Jon MD - 07/01/2022 10:59 [...] PA 667 mg at 07/01/22 0810 peg 900-lzqekjcliblx-imzyjoap 1-0.2-0.2 % ophthalmic solution 1 Drop 1 [...] PA 5 mg at 06/30/22 0801 cloNIDine (GVLWCERO-XQD-9) 0.1 mg/24 hr transdermal patch 1 Patch [...] Code: full F/u: PCP, Aditya Lara MD [phone] Cardiology Endocrinology Srinivas Jon MD OZOOLOGY TEACHER * Rosa Raya LPN - 07/01/2022 6:09 [...] / fall precautions followed, call-light in reach. OZOOLOGY TEACHER * Rosa Raya LPN - 07/01/2022 12:44 [...] effects of their medication Rosa Raya LPN OZOOLOGY TEACHER * Filomena Sibley RN - 06/30/2022 10:24 PM CST Patient alert and oriented, timeout completed and consent given for CCPD prior to connection. CCPD Connected at 22:05. Dressing changed per protocol no signs and symptoms of infection on exit site. Report given to primary nurse,CCPD approximate end time is 08:35 next morning. OZOOLOGY TEACHER * Jasmin Bradley MD - 06/30/2022 5:00 [...] 06/30/2022 2205 Gross per 24 hour Intake 75066 ml Output 1588 ml Net 23832 ml Examination: RRR, CTA Soft, NT , [...] TIBC, FERRITIN, Lab Results Component Value Date [id number] 1,178 06/30/2022 , No results found for: FOLATE, FOLATERBC, Lab Results Component Value Date CA 9.1 06/30/2022 , Lab Results Component Value Date CREAT 9.78 (H) 06/30/2022 GFR 6 (L) 06/30/2022 , No results found for: RPR, RPRTITER, No results found for: CHOLTOT, HDL, LDLCALC, LDLDIRECT, TRIGLYCERIDE, No results found for: ESR, ESRPOC, SHAWN, ANASCREEN, ANATITER, RHEUMFACTOR, CRP, CRPHS, R5LGAYRGJTL, L7ALTUESPQU, DNAAB, DNADSAB, CCPABIGG, Lab Results Component Value [...] blood pressure --Losartan 12.5 mg daily -- Fruit Culler 30 mg daily -- Metoprolol 25 mg [...] BRADLEY MD [facility] [phone] OZOOLOGY TEACHER * Conrad Dumont MD - 06/30/2022 11:42 [...] needs are noted. Reviewed extensive records from [facility] and daughter says BIPAP settings. Assessment and [...] reflux disease without esophagitis Dystrophia unguium Dysphagia- AMMUNITION SUPERVISOR to assess and follow Cardiogenic shock Anemia [...] PA 667 mg at 06/30/22 0806 peg 064-eqmsopgeromo-pvogyrzl 1-0.2-0.2 % ophthalmic solution 1 Drop 1 [...] PA 5 mg at 06/30/22 08 cloNIDine (MSYOXTGQ-IPJ-5) 0.1 mg/24 hr transdermal patch 1 Patch [...] male who recently has been admitted to [facility] for comprehensive rehabilitation - multiple complex medical issues will impact medical management throughout the acute inpatient rehabilitation process. Pt has a significant medical history including but not limited to CHF- EF 50%, Afib, HTN, CAD, T1DM, ESRD on PD, HLD, GERD, hyperparathyroidism, DDD, OA, gout, BEN on CPAP, who initially presented to [facility] for n/v, onset three days, with associated chest pain, generalized weakness, chills, ROONEY. Symptoms were relieved with sublingual ntg. His labs were notable for trop 1.0-->1.09-->0.729, BNP 73247. He had a CT CAP showing cholelithiasis [...] as optimal treatment. Pt was transfered to [place] on 06/05. Upon arrival EKG showed sinus [...] (most recent): No results found for: HGBA1C, [id number] LIPID panel result (most recent): No results [...] LESLY Ayala MD Internal Medicine Director // OZOOLOGY TEACHER * Chirag Pan RCP - 06/30/2022 10:06 AM CST [facility] RT Assess and Treat Worksheet and Note Admitting Diagnosis/Pulmonary History:Cardiogenic shock, BEN, CHF Home Regimen: none Home Oxygen/CPAP/BiPap: Bipap 07/12 Please Call Respiratory therapy at [phone] if you have any questions or a change in patient conditions. # Date Machinist Mechanic Respiratory Orders Comments 1 06/29/22 RHB Bipap [...] Post Discharge Education Plan Pt response: Referrals [id number] - Referral to Smoke Cessation [id number] - Referral to Pulmonary Rehab General Ed [id number] - JESUS Smoking Cessation [id number] - JESUS Nebulizer Ed [id number] - JESUS MDI Ed [id number] - JESUS DPI Ed [id number] - JESUS Spiriva HandiHaler Ed Disease Ed [id number] - JESUS Pneumonia Ed [id number] - JESUS Asthma Ed GDS0042 - JESUS COPD Ed CXR A = [...] Score PH = Score per Pulmonary History UT = MDI independent Score WOB = Score per Work of Breathing AI = Acapella independent Score RR = Score per Respiratory Rate Score O2 = Score per Oxygen requirement Score BS = Score per Breathsounds Score SH = Score per Smoking History OZOOLOGY TEACHER * Chirag Pan RCP - 06/30/2022 10:05 AM CST Images from the original note were not included. Respiratory Therapy Assess and Treat Protocol- [facility] ORDERS ARE ENTERED ???PER PROTOCOL?? Enter the protocol in the patient???s electronic health record using [employer]: .rtassessandtreatprotocol Respiratory Therapy orders: Requires a written order for Assess and Treat Protocol (RT41) or IP Consult to Respiratory Therapy (CON21) by the physician or the physician credit portfolio manager. Oxygen desaturation studies (walk studies) must be [...] (CON21) by the physician or the physician credit portfolio manager. 2. Only licensed Respiratory Therapists will be [...] home regimen medications as listed in their WIND FARM ELECTRICAL SYSTEMS DESIGNER medication list as appropriate. Patients in [facility] [...] not indicated for patients transitioning to a nursing home facility, rehabilitation facility, or who have not required oxygen since admission unless otherwise specified by the physician. ASSESS AND TREAT PROTOCOL-ADULT BRONCHODILATION PROCEDURE Indications: Bronchospasm/wheezing (Reactive Airway Disease, Asthma, Emphysema, Chronic Bronchitis, Bronchiolitis) Current Home Bronchodilator usage including short-acting, long-acting, inhaled corticosteroid, anticholinergic, and combination respiratory medications. Other indications stated in the [place] [employer]???s Clinical Practice Guidelines, [...] the patient is being managed by their Developer Automatic. Determine Mode of Delivery using chart below. [...] MDI 4)Considerations Review patient???s Prior to Admission (WIND FARM ELECTRICAL SYSTEMS DESIGNER) medication list. The Respiratory Therapist will consider [...] respiratory medications) if not already on the WIND FARM ELECTRICAL SYSTEMS DESIGNER medication list. The Respiratory Therapist will contact the attending physician if a controller therapy may benefit the patient. Xopenex (Levalbuterol) Orders will be followed as below: See Pharmacy Policy, Section: APPROVED THERAPEUTIC INTERCHANGES FOR [facility] Title: Beta Agonists Patients taking home regimen [...] Nursing Leadership, Pharmacy & Therapeutics CommitteeDate: 10/2017 OZOOLOGY TEACHER * Srinivas Jon MD - 06/30/2022 9:28 [...] PA 667 mg at 06/30/22 0806 peg 644-cmgsxblgqjgp-cllrkyaa 1-0.2-0.2 % ophthalmic solution 1 Drop 1 [...] mg 4 mg every 6 hours PRN Avin Clifford PA prochlorperazine maleate (COMPAZINE) tablet 10 [...] PA 5 mg at 06/30/22 08 cloNIDine (OHXHJYZJ-XZI-1) 0.1 mg/24 hr transdermal patch 1 Patch [...] (most recent): No results found for: GLUCOSEF, KPDTSJO2TV, GLUCOSE Coagulation result (most recent): No results [...] Code: full F/u: PCP, Aditya Lara MD [phone] Cardiology Endocrinology Srinivas Jon MD OZOOLOGY TEACHER * Aviva Alfaro RN - 06/30/2022 6:04 AM CST Patient experienced routine night on this 12 hour shift. Received report. Pt was resting in bed. Complaints of pain everywhere. Pt had already received Tylenol, which he stated was not helping. Notified Dr. Jon. Orders received for [place]. Last BM 06-29. Pt is oliguric. Pt connected to peritoneal dialysis by chief controller center, to be disconnected around 0830 in the [...] following: Indication for use Aviva Alfaro RN OZOOLOGY TEACHER * Filomena Sibley RN - 06/29/2022 10:05 PM CST Patient alert and oriented, timeout completed and consent given for CCPD prior to connection. CCPD Connected at 21:50. Dressing changed per protocol no signs and symptoms of infection on exit site. Report given to primary nurse,CCPD approximate end time is 08:20 next morning. OZOOLOGY TEACHER * Maggie Eric LPN - 06/29/2022 6:18 PM CST 9.6u self administered via insulin pump this evening after blood glucose reading of 265. OZOOLOGY TEACHER * Maggie Eric LPN - 06/29/2022 3:48 [...] spinal injury, consult physician. 7. Is a biomedical engineering aide in place? no If yes, remove device/brace/splint to check skin underneath, obtain provider order if necessary. 8. Does the patient have a wound VAC (negative pressure wound therapy)? no If yes, please consult wound care services and follow facility process. 9. Does the patient have an ostomy? no If yes, please consult wound care services. OZOOLOGY TEACHER documented in this encounter H&P Notes * [...] Timeline (including subjective): 06/29/2022 - Admission to [facility] - (Admission Data below). DAPT on ASA and Plavix. Pt appears ill. Pt with PD cath and DM pump. Discussed care at length with bedside RN and RESPlead. On going aggressive medical mgt continues to optimize pt for continued success in the comprehensive rehab course. Complex needs are noted. Reviewed extensive records from [facility] and daughter says BIPAP settings. Assessment and [...] reflux disease without esophagitis Dystrophia unguium Dysphagia- AMMUNITION SUPERVISOR to assess and follow Cardiogenic shock Anemia [...] TID BEFORE meals Avni Clifford PA peg 401-spehcfdvqvhz-nicvfmsz 1-0.2-0.2 % ophthalmic solution 1 Drop 1 [...] Avni Clifford PA [START ON 06/30/2022] cloNIDine (QJSAMBON-ETP-7) 0.1 mg/24 hr transdermal patch 1 Patch 1 Patch every 7 days Avni Clifford PA New Admission Meds - retrieve upon admission every 4 hours Avni Clifford PA melatonin tablet 6 mg 6 mg daily BEDTIME Avni Clifford PA Admission Data : CC: Debility/Cardiogenic shock/HTN HPI: Juvenal Daigle is a 51 y.o. male who recently has been admitted to [facility] for comprehensive rehabilitation - multiple complex medical issues will impact medical management throughout the acute inpatient rehabilitation process. Pt has a significant medical history including but not limited to CHF- EF 50%, Afib, HTN, CAD, T1DM, ESRD on PD, HLD, GERD, hyperparathyroidism, DDD, OA, gout, BEN on CPAP, who initially presented to [facility] for n/v, onset three days, with associated chest pain, generalized weakness, chills, ROONEY. Symptoms were relieved with sublingual ntg. His labs were notable for trop 1.0-->1.09-->0.729, BNP 44168. He had a CT CAP showing cholelithiasis [...] as optimal treatment. Pt was transfered to [place] on 06/05. Upon arrival EKG showed sinus [...] (most recent): No results found for: HGBA1C, BRYN8XXYE LIPID panel result (most recent): No results [...] that may have occurred. Conrad Dumont MD OZOOLOGY TEACHER documented in this encounter Consult Notes * [...] BEN on CPAP who initially presented to [facility] for n/v and chest pain. Per Pt he had 3 days of generalized weakness, chills, ROONEY, n/v, chest pain relieved by sublingual ntg. His labs were notable for trop 1.0-->1.09-->0.729, BNP 18297. He had a CT CAP showing cholelithiasis [...] as optimal treatment. Pt was transfered to [place] on 06/05. Upon arrival EKG showed sinus [...] medically appropriate, he was tr ansferred to [facility] for comprehensive rehabilitation on 06/29/22. Functional Status: [...] PA 667 mg at 06/29/22 1654 peg 665-iuhkufqewzwq-obfcjryl 1-0.2-0.2 % ophthalmic solution 1 Drop 1 [...] 12.5 Gram 12.5 Gram see admin instructions vAni Clifford PA dextrose 50% (D50) syringe 25 [...] Avni Clifford PA [START ON 06/30/2022] cloNIDine (HRZQFUHG-GSG-2) 0.1 mg/24 hr transdermal patch 1 Patch [...] found for: TSH, TSHULTRA, THYROIDSTIM, T3, T3FREE, U7RZEORM, T4, T4FREE, FT4E, TPO, THROIDAB, THYROIDMI No results found for: WGCPRWAO96 No results found for: VBLZ449, VITD25, FPYU91VPA8, LMUN26MBK2, MMBD24ZZUL, 25OHVITD No results found for: HGBA1C, INNM4WMVQ No results found for: PHUA, SGUR, URINELEUKOC, [...] be performed under the direction of a informatics physician. CAD, s/p NSTEMI, s/p PCI. Cont asa, [...] Code: full F/u: PCP, Aditya Lara MD [phone] Cardiology Endocrinology Barriers to immediate discharge to [...] Total time spent on this evaluation, examination, elementary school counselor with patient and/or family/caregivers, determination documentation and initiation of plan of care was more than 70 minutes. Srinivas Jon MD OZOOLOGY TEACHER * Jasmin Bradley MD - 06/29/2022 5:00 [...] BEN on CPAP, who initially presented to [facility] for nausea and vomiting for three days, associated chest pain, generalized weakness, chills, ROONEY. Symptoms were relieved with sublingual NTG. His labs were notable for elevated troponin 1.0-->1.09-->0.729, BNP [address]194. He had a CT C/A/P showing cholelithiasis [...] as optimal treatment. He was transfered to [place] on 06/05/22. Upon arrival EKG showed sinus [...] been deemed medically stable and transferred to [facility] for comprehensive inpatient rehab. I am asked [...] 18 UNITS SUBCUTANEOUSLY TID W MEALS Insulin Glidden, Disposable, (TRUEPLUS PEN NEEDLE) 31 gauge x [...] Sig: Take 30 mg by mouth daily beef lugger. isosorbide mononitrate (IMDUR) 60 mg Extended Release 24 hour tablet Yes No Sig: Take 60 mg by mouth daily beef lugger. ketoconazole (NIZORAL) 2 % Shampoo Yes No [...] blood pressure --Losartan 12.5 mg daily -- Fruit Culler 30 mg daily -- Metoprolol 25 mg [...] up closely with you. JASMIN BRADLEY MD [facility] of Nephrology Office [phone] OZOOLOGY TEACHER documented in this encounter Miscellaneous Notes * [...] do not leave alone in the bathroom. OZOOLOGY TEACHER * Care Plan - Leonela Lantigua RN [...] do not leave alone in the bathroom. OZOOLOGY TEACHER * Care Plan - Katerina Griffith RN [...] because of medications (i.e. - BP meds, CV/PROGRESS CLERK meds, seizure meds, diuretics, pain meds, psych [...] discharge or maintain baseline function Outcome: Progressing OZOOLOGY TEACHER * Care Plan - Leonela Lantigua RN [...] do not leave alone in the bathroom. OZOOLOGY TEACHER * Care Plan - Rosa Raya LPN - 07/02/2022 9:36 PM CST Day 1 - Current ([facility]: Adult and Obstetrics) Patient, family, or [...] because of medications (i.e. - BP meds, CV/PROGRESS CLERK meds, seizure meds, diuretics, pain meds, psych [...] discharge or maintain baseline function Outcome: Progressing OZOOLOGY TEACHER * Care Plan - Leonela Lantigua RN [...] do not leave alone in the bathroom. OZOOLOGY TEACHER * Care Plan - Deep Denson RN [...] was started on peritoneal dialysis by the [facility] dialysis nurse during the evening. Pt appears to be tolerating well at this time. No acute distress evident. Medicated for pain as needed this shift. OZOOLOGY TEACHER * Care Plan - Rosa Raya LPN - 06/30/2022 8:05 PM CST Day 1 - Current ([facility]: Adult and Obstetrics) Patient, family, or [...] because of medications (i.e. - BP meds, CV/PROGRESS CLERK meds, seizure meds, diuretics, pain meds, psych [...] nausea and vomiting as needed Outcome: Progressing OZOOLOGY TEACHER * Initial Assessments - Abelardo Weber RD - 06/30/2022 4:14 PM PROTOZOOLOGY TEACHER CLINICAL DIETITIAN ASSESSMENT NOTE [facility] Juvenal Newcombe 51 y.o. male [...] for more wound documentation Edema (per provider time recorder charting): +LE Pert Meds: calphron, foltx, furosemide, [...] 05:46 AM No results found for: HGBA1C, [id number] No results found for: CHOLTOT, HDL, LDLCALC, LDLDIRECT, TRIGLYCERIDE D: Increased protein needs r/t altered absorption or metabolism of nutrients as evidenced by ESRD on PD Nutrition Risk: mild d/t good appetite and pt reporting understanding diet M/E: Monitor nutrition, weight, lab values, and skin. Follow up based on nutrition risk or as needed. Abelardo Weber RD, LD OZOOLOGY TEACHER * Care Plan - Aviva Alfaro RN [...] Activity intolerance, Potential/Actual Musculoskeletal Interventions: Mobility promoted [place] in ADL???s promoted Adaptive equipment provided Slow, progressive position changes OZOOLOGY TEACHER documented in this encounter Plan of Treatment Not on file documented as of this encounter Procedures Procedure Name Priority Date/Time Associated Diagnosis Comments EKG 12-LEAD Routine 07/20/2022 1:12 PM PROTOZOOLOGY TEACHER POC GLUCOSE Routine 07/08/2022 12:12 PM PROTOZOOLOGY TEACHER POC GLUCOSE Routine 07/08/2022 7:56 AM PROTOZOOLOGY TEACHER CBC WITH DIFFERENTIAL Routine 07/08/2022 4:53 AM PROTOZOOLOGY TEACHER C-REACTIVE PROTEIN Routine 07/08/2022 4: 53 AM PROTOZOOLOGY TEACHER BRAIN NATRIURETIC PEPTIDE, BNP OR PROBNP Routine 07/08/2022 4:53 AM PROTOZOOLOGY TEACHER MAGNESIUM LEVEL Routine 07/08/2022 4:53 AM PROTOZOOLOGY TEACHER COMPREHENSIVE METABOLIC PANEL Routine 07/08/2022 4:53 AM PROTOZOOLOGY TEACHER POC GLUCOSE Routine 07/07/2022 8:27 PM PROTOZOOLOGY TEACHER POC GLUCOSE Routine 07/07/2022 4:58 PM PROTOZOOLOGY TEACHER POC GLUCOSE Routine 07/07/2022 11:38 AM PROTOZOOLOGY TEACHER POC GLUCOSE Routine 07/07/2022 7:29 AM PROTOZOOLOGY TEACHER POC GLUCOSE Routine 07/06/2022 8:10 PM PROTOZOOLOGY TEACHER POC GLUCOSE Routine 07/06/2022 4:44 PM PROTOZOOLOGY TEACHER POC GLUCOSE Routine 07/06/2022 12:21 PM PROTOZOOLOGY TEACHER POC GLUCOSE Routine 07/06/2022 7:21 AM PROTOZOOLOGY TEACHER POC GLUCOSE Routine 07/05/2022 8:19 PM PROTOZOOLOGY TEACHER POC GLUCOSE Routine 07/05/2022 4:26 PM PROTOZOOLOGY TEACHER POC GLUCOSE Routine 07/05/2022 11:30 AM PROTOZOOLOGY TEACHER POC GLUCOSE Routine 07/05/2022 7:31 AM PROTOZOOLOGY TEACHER POC GLUCOSE Routine 07/04/2022 9:01 PM PROTOZOOLOGY TEACHER POC GLUCOSE Routine 07/04/2022 4:49 PM PROTOZOOLOGY TEACHER POC GLUCOSE Routine 07/04/2022 11:32 AM PROTOZOOLOGY TEACHER CBC WITH DIFFERENTIAL Routine 07/04/2022 11:09 AM PROTOZOOLOGY TEACHER C-REACTIVE PROTEIN Routine 07/04/2022 11 :09 AM PROTOZOOLOGY TEACHER BRAIN NATRIURETIC PEPTIDE, BNP OR PROBNP Routine 07/04/2022 11:09 AM PROTOZOOLOGY TEACHER MAGNESIUM LEVEL Routine 07/04/2022 11:09 AM PROTOZOOLOGY TEACHER COMPREHENSIVE METABOLIC PANEL Routine 07/04/2022 11:09 AM PROTOZOOLOGY TEACHER POC GLUCOSE Routine 07/04/2022 7:17 AM PROTOZOOLOGY TEACHER POC GLUCOSE Routine 07/03/2022 8:09 PM PROTOZOOLOGY TEACHER POC GLUCOSE Routine 07/03/2022 4:31 PM PROTOZOOLOGY TEACHER POC GLUCOSE Routine 07/03/2022 11:22 AM PROTOZOOLOGY TEACHER XR CHEST PA OR AP 1 VW Routine 9:35 AM PROTOZOOLOGY TEACHER POC GLUCOSE Routine 07/03/2022 7:35 AM PROTOZOOLOGY TEACHER CBC WITH DIFFERENTIAL Routine 07/03/2022 5:44 AM PROTOZOOLOGY TEACHER C-REACTIVE PROTEIN Routine 07/03/2022 5: 44 AM PROTOZOOLOGY TEACHER BRAIN NATRIURETIC PEPTIDE, BNP OR PROBNP Routine 07/03/2022 5:44 AM PROTOZOOLOGY TEACHER MAGNESIUM LEVEL Routine 07/03/2022 5:44 AM PROTOZOOLOGY TEACHER CK Routine 07/03/2022 5:44 AM PROTOZOOLOGY TEACHER COMPREHENSIVE METABOLIC PANEL Routine 07/03/2022 5:44 AM PROTOZOOLOGY TEACHER POC GLUCOSE Routine 07/02/2022 7:51 PM PROTOZOOLOGY TEACHER POC GLUCOSE Routine 07/02/2022 4:31 PM PROTOZOOLOGY TEACHER POC GLUCOSE Routine 07/02/2022 12:06 PM PROTOZOOLOGY TEACHER POC GLUCOSE Routine 07/02/2022 7:37 AM PROTOZOOLOGY TEACHER POC GLUCOSE Routine 07/01/2022 7:46 PM PROTOZOOLOGY TEACHER POC GLUCOSE Routine 07/01/2022 5:00 PM PROTOZOOLOGY TEACHER POC GLUCOSE Routine 07/01/2022 12:11 PM PROTOZOOLOGY TEACHER POC GLUCOSE Routine 07/01/2022 7:21 AM PROTOZOOLOGY TEACHER CBC WITH DIFFERENTIAL Routine 07/01/2022 5:19 AM PROTOZOOLOGY TEACHER URIC ACID Routine 07/01/2022 5:19 AM PROTOZOOLOGY TEACHER RENAL FUNCTION PANEL Routine 07/01/2022 5:19 AM PROTOZOOLOGY TEACHER POC GLUCOSE Routine 06/30/2022 8:10 PM PROTOZOOLOGY TEACHER POC GLUCOSE Routine 06/30/2022 4:31 PM PROTOZOOLOGY TEACHER URINALYSIS W/REFLEX MICROSCOPIC Routine 06/30/2022 2:55 PM PROTOZOOLOGY TEACHER URINE CULTURE Routine 06/30/2022 2:55 PM PROTOZOOLOGY TEACHER POC GLUCOSE Routine 06/30/2022 11:42 AM PROTOZOOLOGY TEACHER POC GLUCOSE Routine 06/30/2022 7:03 AM PROTOZOOLOGY TEACHER HEPATITIS B SURFACE AB, QUANT Routine 06/30/2022 5:46 AM PROTOZOOLOGY TEACHER TSH REFLEXIVE Routine 06/30/2022 5:46 AM PROTOZOOLOGY TEACHER HEPATITIS B SURFACE ANTIGEN Routine 06/30/2022 5:46 AM PROTOZOOLOGY TEACHER CBC WITH DIFFERENTIAL Routine 06/30/2022 5:46 AM PROTOZOOLOGY TEACHER VITAMIN D 25 HYDROXY Routine 06/30/2022 5:46 AM PROTOZOOLOGY TEACHER VITAMIN B12 LEVEL Routine 06/30/2022 5:4 6 AM PROTOZOOLOGY TEACHER COMPREHENSIVE METABOLIC PANEL Routine 06/30/2022 5:46 AM PROTOZOOLOGY TEACHER POC GLUCOSE Routine 06/29/2022 9:52 PM PROTOZOOLOGY TEACHER POC GLUCOSE Routine 06/29/2022 4:28 PM PROTOZOOLOGY TEACHER documented in this encounter Results * EKG 12-LEAD (07/20/2022 1:12 PM PROTOZOOLOGY TEACHER) Avni Clifford [facility] ECG ORDERABLES [facility] [address] [facility] [address] [place] [address] * (ABNORMAL) POC GLUCOSE (07/08/2022 12:12 PM PROTOZOOLOGY TEACHER) GLUCOSE POC 272(H) 74 - 99 mg/dL 07/08/2022 12:12 PM PROTOZOOLOGY TEACHER [facility] SPECIMEN SOURCE, GLUCOSE POC Whole Blood 07/08/2022 12:12 PM PROTOZOOLOGY TEACHER [facility] COMMENT, GLU POC Notified RN/MD 07/08/2022 12:12 PM [facility] Blood, whole 07/08/2022 12:1 2 PM PROTOZOOLOGY TEACHER 07/08/2022 12:21 PM PROTOZOOLOGY TEACHER Srinivas Jon MD POINT OF CARE GERONIMO Crow [facility] CLIA # [id number] [place] [address] * POC GLUCOSE (07/08/2022 7:56 AM PROTOZOOLOGY TEACHER) GLUCOSE POC 78 74 - 99 mg/dL 07/08/2022 7:56 AM PROTOZOOLOGY TEACHER [facility] SPECIMEN SOURCE, GLUCOSE POC Whole Blood 07/08/2022 7:56 AM PROTOZOOLOGY TEACHER [facility] Blood, whole 07/08/2022 7:56 AM PROTOZOOLOGY TEACHER 07/08/2022 8:06 AM PROTOZOOLOGY TEACHER Srinivas Jon MD POINT OF CARE GERONIMO Crow [facility] CLIA # [id number] [place] [address] * (ABNORMAL) BRAIN NATRIURETIC PEPTIDE, BNP OR PROBNP (07/08/2022 4:53 AM PROTOZOOLOGY TEACHER) PROBNP, N TERMINAL 7,021(H) <124 pg/mL 07/08/2022 10:19 AM PROTOZOOLOGY TEACHER [facility] LABORATORY [facility] Comment: Reference values for screening purposes based on fourdrinier operator's recommendation: Patients less than 75 years: <125 [...] Blood Venipuncture / Unknown 07/08/2022 4:53 AM PROTOZOOLOGY TEACHER 07/08/2022 9:49 AM PROTOZOOLOGY TEACHER Avni Clifford [employer] MATTHEW LEONE Performing Organization Address [facility]/ZIP Co de Phone Number [facility] [a]list games [facility] CLIA# [id number] [address] [place] [address] * C-REACTIVE PROTEIN (07/08/2022 4:53 AM PROTOZOOLOGY TEACHER) CRP <3.0 <5.0 mg/L 07/08/2022 10:19 AM PROTOZOOLOGY TEACHER [facility] [a]list games [facility] Blood Venipuncture / Unknown 07/08/2022 4:53 AM PROTOZOOLOGY TEACHER 07/08/2022 9:49 AM PROTOZOOLOGY TEACHER Avni ELONE Performing Organization Address [facility] Co de Phone Number [facility] [a]list games [facility] CLNC# [id number] [address] [place] [address] * MAGNESIUM LEVEL (07/08/2022 4:53 AM PROTOZOOLOGY TEACHER) MAGNESIUM 1.7 1.6 - 2.6 mg/dL 07/08/2022 10:19 AM PROTOZOOLOGY TEACHER [facility] [a]list games [facility] Blood Venipuncture / Unknown 07/08/2022 4:53 AM PROTOZOOLOGY TEACHER 07/08/2022 9:49 AM PROTOZOOLOGY TEACHER Avni Clifford [employer] MATTHEW LEONE Performing Organization Address [facility]/ZIP Co de Phone Number [facility] [a]list games [facility]INE[facility]# [id number] [address] [place] [address] * (ABNORMAL) COMPREHENSIVE METABOLIC PANEL (07/08/2022 4:53 AM PROTOZOOLOGY TEACHER) SODIUM 139 136 - 145 mmol/L 07/08/2022 10:21 AM PROTOZOOLOGY TEACHER [facility] [a]list games [facility] POTASSIUM 3.6 3.5 - 5.0 mmol/L 07/08/2022 10:21 AM [facility] [employer] LABORATORY [facility] CHLORIDE 99 98 - 107 mmol/L 07/08/2022 10:21 AM [facility] [employer] LABORATORY [facility] CO2 28 22 - 29 mmol/L 07/08/2022 10:[address] [facility] [facility] CALCIUM 9.4 8.6 - 10.2 mg/dL 07/08/2022 10:[address] [facility] BUN 40(H) 6 - 20 mg/dL 07/08/2022 10:21 AM [facility] [email or web address] [facility] CREATININE 6.94(H) 0.67 - 1.17 mg/dL 07/08/2022 10:21 AM [facility] [email or web address] [facility] GLUCOSE 82 74 - 99 mg/dL 07/08/2022 10:[address] [facility] [facility] TOTAL PROTEIN 6.1(L) 6.7 - 8.6 g/dL 07/08/2022 10:21 AM [facility] [email or web address] [facility] ALBUMIN 3.2(L) 3.5 - 5.2 g/dL 07/08/2022 10:21 AM [facility] [email or web address] [facility] BILIRUBIN TOTAL 0.3 0.3 - 1.2 mg/dL 07/08/2022 10:[address] [facility] [facility] ALKALINE PHOSPHATASE 99 40 - 129 U/L 07/08/2022 10:[address] [facility] [facility] AST 49(H) <41 U/L 07/08/2022 10:21 AM [facility] [email or web address] [facility] ALT 54(H) <42 U/L 07/08/2022 10:21 AM [facility] [email or web address] [facility] GFR 9(L) >=60 mL/min/1.7 3 sq meter 07/08/2022 10:21 AM [facility] [email or web address] [facility] Comment:eGFR calculated with 2020 CKD-EPI equation. Vegetarian diet, extremely high or low muscle mass, and may affect results. Cystatin C with Glomerular Filtration Rate is a suitable alternative for these patients. ANION GAP 12 8 - 16 mmol/L 07/08/2022 10:21 AM PROTOZOOLOGY TEACHER [email or web address] [facility] Blood Venipuncture / Unknown 07/08/2022 4:53 AM PROTOZOOLOGY TEACHER 07/08/2022 9:49 AM Replaced by [facility] [a]list games [facility] - 07/08/2022 10:21 AM PROTOZOOLOGY TEACHER Samples containing indocyanine green cause interferences on Total and/or Direct Bilirubin and must not be measured. Avni Clifford [facility] CHEMISTRY SUSANNAH LEONE [facility] [a]list games [facility] CLIA# [id number] [address] [place] [address] * (ABNORMAL) CBC WITH DIFFERENTIAL (07/08/2022 4:53 AM PROTOZOOLOGY TEACHER) WBC 3.6(L) 4.0 - 9.8 K/uL 07/08/2022 10:12 AM [facility] [a]list games [facility] RBC 3.03(L) 4.50 - 5.40 M/uL 07/08/2022 10:12 AM [facility] [a]list games [facility] HEMOGLOBIN 9.2(L) 13.6 - 16.5 g/dL 07/08/2022 10:12 AM [facility] [a]list games [facility] HEMATOCRIT 28.5(L) 40.0 - 48.0 % 07/08/2022 10:[address] [facility] [facility] MCV 94.1 82.0 - 99.0 fL 07/08/2022 10:12 AM [facility] [email or web address] [facility] MCH 30.4 27.2 - 32.6 pg 07/08/2022 10:12 AM [facility] [email or web address] [facility] MCHC 32.3 31.5 - 35.5 g/dL 07/08/2022 10:12 AM [facility] [email or web address] [facility] RDW 15.5(H) 11.5 - 14.5 % 07/08/2022 10:12 AM [facility] [email or web address] [facility] RDW-STDEV 53.3(H) 37.1 - 48.7 fL 07/08/2022 10:12 AM [facility] [email or web address] [facility] PLATELETS 247 140 - 350 K/uL 07/08/2022 10:12 AM PROTOZOOLOGY TEACHER [employer] LABORATORY [facility] MPV 9.5 9.3 - 12.4 fL 07/08/2022 10:12 AM [facility] [employer] [facility] NEUTROPHILS 40 % 07/08/2022 10:12 AM PROTOZOOLOGY TEACHER [employer] [facility] LYMPHOCYTES 40 % 07/08/2022 10:12 AM PROTOZOOLOGY TEACHER [employer] [facility] MONOCYTES 14 % 07/08/2022 10:12 AM PROTOZOOLOGY TEACHER [employer] [facility] EOSINOPHILS 5 % 07/08/2022 10:12 AM PROTOZOOLOGY TEACHER [employer] [facility] BASOPHILS 1 % 07/08/2022 10:12 AM PROTOZOOLOGY TEACHER [email or web address] [facility] IMMATURE GRANULOCYTES 0 % 07/08/2022 10:12 AM [facility] [employer] LABORATORY [facility] NEUTROPHIL ABSOLUTE 1.46(L) 1.90 - 7.00 K/uL 07/08/2022 10:12 AM PROTOZOOLOGY TEACHER [employer] [facility]AT[facility] LYMPHOCYTE ABSOLUTE 1.43 0.70 - 4.50 K/uL 07/08/2022 10:12 AM PROTOZOOLOGY TEACHER [employer] [facility]AT[facility] MONOCYTE ABSOLUTE 0.52 0.10 - 1.30 K/uL 07/08/2022 10:12 AM [facility] [employer] LABORATORY [facility] EOSINOPHIL ABSOLUTE 0.17 0.00 - 0.70 K/uL 07/08/2022 10:12 AM [place] LABORATORY [facility] BASOPHILS ABSOLUTE 0.03 0.00 - 0.20 K/uL 07/08/2022 10:12 AM PROTOZOOLOGY TEACHER [email or web address] [facility] - [facility] IMMATURE GRANULOCYTES ABSOLUTE 0.01 0.00 - 0.03 K/uL 07/08/2022 10:12 AM PROTOZOOLOGY TEACHER [email or web address] [facility] Blood Venipuncture / Unknown 07/08/2022 4:53 AM PROTOZOOLOGY TEACHER 07/08/2022 9:49 AM PROTOZOOLOGY TEACHER Avni Clifford DMS HEMATOLOGY ORD ERABLES [employer] [facility] CLIA# [id number] [address] [facility] [address] [place] [address] * (ABNORMAL) POC GLUCOSE (07/07/2022 8:27 PM PROTOZOOLOGY TEACHER) GLUCOSE POC 246(H) 74 - 99 mg/dL 07/07/2022 8:27 PM PROTOZOOLOGY TEACHER [facility] SPECIMEN SOURCE, GLUCOSE POC Whole Blood 07/07/2022 8:27 PM PROTOZOOLOGY TEACHER [facility] Blood, whole 07/07/2022 8:27 PM PROTOZOOLOGY TEACHER 07/07/2022 8:36 PM PROTOZOOLOGY TEACHER Srinivas Jon MD POINT OF CARE TESTIN G [facility] CLIA # [id number] [place] [address] * (ABNORMAL) POC GLUCOSE (07/07/2022 4:58 PM PROTOZOOLOGY TEACHER) GLUCOSE POC 332(H) 74 - 99 mg/dL 07/07/2022 4:58 PM PROTOZOOLOGY TEACHER [facility] SPECIMEN SOURCE, GLUCOSE POC Whole Blood 07/07/2022 4:58 PM PROTOZOOLOGY TEACHER [facility] COMMENT, GLU POC Notified RN/MD 07/07/2022 4:58 PM [facility] Blood, whole 07/07/2022 4:58 PM PROTOZOOLOGY TEACHER 07/07/2022 5:11 PM PROTOZOOLOGY TEACHER Srinivas Jon MD POINT OF CARE TESTDUSTIN Crow [facility] CLIA # [id number] [place] [address] * (ABNORMAL) POC GLUCOSE (07/07/2022 11:38 AM PROTOZOOLOGY TEACHER) GLUCOSE POC 270(H) 74 - 99 mg/dL 07/07/2022 11:38 AM PROTOZOOLOGY TEACHER [facility] SPECIMEN SOURCE, GLUCOSE POC Whole Blood 07/07/2022 11:38 AM [facility] Blood, whole 07/07/2022 11:3 8 AM PROTOZOOLOGY TEACHER 07/07/2022 11:53 AM PROTOZOOLOGY TEACHER Sriniavs Jon MD POINT OF CARE TESTDUSTIN Crow [facility] CLIA # [id number] [place] [address] * (ABNORMAL) POC GLUCOSE (07/07/2022 7:29 AM PROTOZOOLOGY TEACHER) GLUCOSE POC 119(H) 74 - 99 mg/dL 07/07/2022 7:29 AM PROTOZOOLOGY TEACHER [facility] SPECIMEN SOURCE, GLUCOSE POC Whole Blood 07/07/2022 7:29 AM PROTOZOOLOGY TEACHER [facility] Blood, whole 07/07/2022 7:29 AM PROTOZOOLOGY TEACHER 07/07/2022 7:54 AM PROTOZOOLOGY TEACHER Srinivas Jon MD POINT OF CARE TESTDUSTIN Crow Performing Organization Address [facility]/ZIP Co de Phone Number [facility] CLIA # [id number] [place] [address] * (ABNORMAL) POC GLUCOSE (07/06/2022 8:10 PM PROTOZOOLOGY TEACHER) GLUCOSE POC 341(H) 74 - 99 mg/dL 07/06/2022 8:10 PM PROTOZOOLOGY TEACHER [facility] SPECIMEN SOURCE, GLUCOSE POC Whole Blood 07/06/2022 8:10 PM PROTOZOOLOGY TEACHER [facility] COMMENT, GLU POC Notified RN/MD 07/06/2022 8:10 PM PROTOZOOLOGY TEACHER [facility] Blood, whole 07/06/2022 8:10 PM PROTOZOOLOGY TEACHER 07/06/2022 8:39 PM PROTOZOOLOGY TEACHER Srinivas Jon MD POINT OF CARE TESTDUSTIN Crow [facility] CLIA # [id number] [place] [address] * (ABNORMAL) POC GLUCOSE (07/06/2022 4:44 PM PROTOZOOLOGY TEACHER) GLUCOSE POC 257(H) 74 - 99 mg/dL 07/06/2022 4:44 PM PROTOZOOLOGY TEACHER [facility] SPECIMEN SOURCE, GLUCOSE POC Whole Blood 07/06/2022 4:44 PM PROTOZOOLOGY TEACHER [facility] Blood, whole 07/06/2022 4:44 PM PROTOZOOLOGY TEACHER 07/06/2022 5:01 PM PROTOZOOLOGY TEACHER Srinivas Jon MD POINT OF CARE TESTDUSTIN Crow Performing Organization Address City/[facility]/ZIP Co de Phone Number [facility] CLIA # [id number] [place] [address] * (ABNORMAL) POC GLUCOSE (07/06/2022 12:21 PM PROTOZOOLOGY TEACHER) GLUCOSE POC 251(H) 74 - 99 mg/dL 07/06/2022 12:21 PM PROTOZOOLOGY TEACHER [facility] SPECIMEN SOURCE, GLUCOSE POC Whole Blood 07/06/2022 12:21 PM PROTOZOOLOGY TEACHER [facility] Blood, whole 07/06/2022 12:2 1 PM PROTOZOOLOGY TEACHER 07/06/2022 12:33 PM PROTOZOOLOGY TEACHER Srinivas Jon MD POINT OF CARE TESTDUSTIN Crow Performing Organization Address City/[facility]/ZIP Co de Phone Number [facility] CLIA # [id number] [place] [address] * POC GLUCOSE (07/06/2022 7:21 AM PROTOZOOLOGY TEACHER) GLUCOSE POC 80 74 - 99 mg/dL 07/06/2022 7:21 AM PROTOZOOLOGY TEACHER [facility] SPECIMEN SOURCE, GLUCOSE POC Whole Blood 07/06/2022 7:21 AM PROTOZOOLOGY TEACHER [facility] Blood, whole 07/06/2022 7:21 AM PROTOZOOLOGY TEACHER 07/06/2022 7:57 AM PROTOZOOLOGY TEACHER Srinivas Jon MD POINT OF CARE TESTDUSTIN Crow [facility] CLIA # [id number] [place] [address] * (ABNORMAL) POC GLUCOSE (07/05/2022 8:19 PM PROTOZOOLOGY TEACHER) GLUCOSE POC 340(H) 74 - 99 mg/dL 07/05/2022 8:19 PM PROTOZOOLOGY TEACHER [facility] SPECIMEN SOURCE, GLUCOSE POC Whole Blood 07/05/2022 8:19 PM PROTOZOOLOGY TEACHER [facility] COMMENT, GLU POC Notified RN/MD 07/05/2022 8:19 PM PROTOZOOLOGY TEACHER [facility] Blood, whole 07/05/2022 8:19 PM PROTOZOOLOGY TEACHER 07/05/2022 9:22 PM PROTOZOOLOGY TEACHER Srinivas Jon MD POINT OF CARE TESTDUSTIN Crow Performing Organization Address City/[facility]/ZIP Co de Phone Number [facility] CLIA # [id number] [place] [address] * (ABNORMAL) POC GLUCOSE (07/05/2022 4:26 PM PROTOZOOLOGY TEACHER) GLUCOSE POC 352(H) 74 - 99 mg/dL 07/05/2022 4:26 PM [facility] SPECIMEN SOURCE, GLUCOSE POC Whole Blood 07/05/2022 4:26 PM [facility] Blood, whole 07/05/2022 4:26 PM PROTOZOOLOGY TEACHER 07/05/2022 4:37 PM PROTOZOOLOGY TEACHER Srinivas Jon MD POINT OF CARE TESTDUSTIN Crow [facility] CLIA # [id number] [place] [address] * (ABNORMAL) POC GLUCOSE (07/05/2022 11:30 AM PROTOZOOLOGY TEACHER) GLUCOSE POC 286(H) 74 - 99 mg/dL 07/05/2022 11:30 AM PROTOZOOLOGY TEACHER [facility] SPECIMEN SOURCE, GLUCOSE POC Whole Blood 07/05/2022 11:30 AM PROTOZOOLOGY TEACHER [facility] Blood, whole 07/05/2022 11:3 0 AM PROTOZOOLOGY TEACHER 07/05/2022 11:48 AM PROTOZOOLOGY TEACHER Srinivas Jon MD POINT OF CARE TESTIN G Performing Organization Address City/[facility]/ZIP Co de Phone Number [facility] CLIA # [id number] [place] [address] * (ABNORMAL) POC GLUCOSE (07/05/2022 7:31 AM PROTOZOOLOGY TEACHER) GLUCOSE POC 124(H) 74 - 99 mg/dL 07/05/2022 7:31 AM [facility] SPECIMEN SOURCE, GLUCOSE POC Whole Blood 07/05/2022 7:31 AM [facility] Blood, whole 07/05/2022 7:31 AM PROTOZOOLOGY TEACHER 07/05/2022 7:42 AM PROTOZOOLOGY TEACHER Srinivas Jon MD POINT OF CARE TESTDUSTIN G Performing Organization Address [facility]/ZIP Co de Phone Number [facility] CLIA # [id number] [place] [address] * (ABNORMAL) POC GLUCOSE (07/04/2022 9:01 PM PROTOZOOLOGY TEACHER) GLUCOSE POC 330(H) 74 - 99 mg/dL 07/04/2022 9:01 PM PROTOZOOLOGY TEACHER [facility] SPECIMEN SOURCE, GLUCOSE POC Whole Blood 07/04/2022 9:01 PM PROTOZOOLOGY TEACHER [facility] COMMENT, GLU POC Notified RN/MD 07/04/2022 9:01 PM [facility] Blood, whole 07/04/2022 9:01 PM PROTOZOOLOGY TEACHER 07/04/2022 9:19 PM PROTOZOOLOGY TEACHER Srinivas Jon MD POINT OF CARE TESTDUSTIN Crow Performing Organization Address City/[facility]/ZIP Co de Phone Number [facility] CLIA # [id number] [place] [address] * (ABNORMAL) POC GLUCOSE (07/04/2022 4:49 PM PROTOZOOLOGY TEACHER) GLUCOSE POC 294(H) 74 - 99 mg/dL 07/04/2022 4:49 PM PROTOZOOLOGY TEACHER [facility] SPECIMEN SOURCE, GLUCOSE POC Whole Blood 07/04/2022 4:49 PM PROTOZOOLOGY TEACHER [facility] COMMENT, GLU POC Notified RN/MD 07/04/2022 4:49 PM [facility] Blood, whole 07/04/2022 4:49 PM PROTOZOOLOGY TEACHER 07/04/2022 5:05 PM PROTOZOOLOGY TEACHER Srinivas Jon MD POINT OF CARE TESTDUSTIN Crow [facility] CLIA # [id number] [place] [address] * (ABNORMAL) POC GLUCOSE (07/04/2022 11:32 AM PROTOZOOLOGY TEACHER) GLUCOSE POC 266(H) 74 - 99 mg/dL 07/04/2022 11:32 AM [facility] SPECIMEN SOURCE, GLUCOSE POC Whole Blood 07/04/2022 11:32 AM [facility] COMMENT, GLU POC Notified RN/MD 07/04/2022 11:32 AM [facility] Blood, whole 07/04/2022 11:3 2 AM PROTOZOOLOGY TEACHER 07/04/2022 11:48 AM PROTOZOOLOGY TEACHER Srinivas Jon MD POINT OF CARE TESTDUSTIN Crow [facility] CLIA # [id number] [place] [address] * (ABNORMAL) BRAIN NATRIURETIC PEPTIDE, BNP OR PROBNP (07/04/2022 11:09 AM PROTOZOOLOGY TEACHER) PROBNP, N TERMINAL 4,687(H) <124 pg/mL 07/04/2022 1:03 PM [facility] Comment: Reference values for screening purposes based on fourdrinier operator's recommendation: Patients less than 75 years: <125 [...] Blood Venipuncture / Unknown 07/04/2022 11:09 AM PROTOZOOLOGY TEACHER 07/04/2022 12:22 PM PROTOZOOLOGY TEACHER [employer] [employer] Performing Organization Address [facility]/ZIP Co de Phone Number [facility] CLIA# [id number] [address] [place] [address] * (ABNORMAL) C-REACTIVE PROTEIN (07/04/2022 11:09 AM PROTOZOOLOGY TEACHER) CRP 5.0(H) <5.0 mg/L 07/04/2022 1:03 PM PROTOZOOLOGY TEACHER [facility] Blood Venipuncture / Unknown 07/04/2022 11:09 AM PROTOZOOLOGY TEACHER 07/04/2022 12:22 PM PROTOZOOLOGY TEACHER [employer] CHEMISTRY ORDE [employer] [facility] CLIA# [id number] [address], [place] [address] * MAGNESIUM LEVEL (07/04/2022 11:09 AM PROTOZOOLOGY TEACHER) MAGNESIUM 1.8 1.6 - 2.6 mg/dL 07/04/2022 1:03 PM PROTOZOOLOGY TEACHER [facility] [a]list games [facility] Blood Venipuncture / Unknown 07/04/2022 11:09 AM PROTOZOOLOGY TEACHER 07/04/2022 12:22 PM PROTOZOOLOGY TEACHER [employer] Clifford DMS CHEMISTRY [facility] [facility] - [facility] CLIA# [id number] [address] [place] [address] * (ABNORMAL) COMPREHENSIVE METABOLIC PANEL (07/04/2022 11:09 AM PROTOZOOLOGY TEACHER) SODIUM 134(L) 136 - 145 mmol/L 07/04/2022 1:04 PM [facility] LAB[facility]ATORY SERVICES - [facility] POTASSIUM 4.7 3.5 - 5.0 mmol/L 07/04/2022 1:04 PM [facility] LAB[facility]ATORY SERVICES - . [facility] CHLORIDE 95(L) 98 - 107 mmol/L 07/04/2022 1:04 PM [facility] - . [facility] CO2 24 22 - 29 mmol/L 07/04/2022 1:04 PM [facility] - . [facility] CALCIUM 9.1 8.6 - 10.2 mg/dL 07/04/2022 1:04 PM [facility]ATORY [facility] - [facility] BUN 49(H) 6 - 20 mg/dL 07/04/2022 1:04 PM [facility] SERVICES - . [facility] CREATININE 8.63(H) 0.67 - 1.17 mg/dL 07/04/2022 1:04 PM [facility] - . [facility] GLUCOSE 304(H) 74 - 99 mg/dL 07/04/2022 1:04 PM [facility] - . [facility] TOTAL PROTEIN 6.3(L) 6.7 - 8.6 g/dL 07/04/2022 1:04 PM [facility] [employer] LAB[facility]ATORY [facility] - [facility] ALBUMIN 3.1(L) 3.5 - 5.2 g/dL 07/04/2022 1:04 PM [facility] - . [facility] BILIRUBIN TOTAL 0.4 0.3 - 1.2 mg/dL 07/04/2022 1:04 PM [facility] LABORATORY SERVICES - [facility] ALKALINE PHOSPHATASE 107 40 - 129 U/L 07/04/2022 1:[address] [facility] AST 48(H) <41 U/L 07/04/2022 1:[address] [facility] ALT 44(H) <42 U/L 07/04/2022 1:[address] [facility] GFR 7(L) >=60 mL/min/1.7 3 sq meter 07/04/2022 1:[address] [facility] Comment:eGFR calculated with 2020 CKD-EPI equation. Vegetarian diet, extremely high or low muscle mass, and may affect results. Cystatin C with Glomerular Filtration Rate is a suitable alternative for these patients. ANION GAP 15 8 - 16 mmol/L 07/04/2022 1:[address] [facility] Blood Venipuncture / Unknown 07/04/2022 11:09 AM PROTOZOOLOGY TEACHER 07/04/2022 12:22 PM [facility] - 07/04/2022 1:04 PM [facility] Samples containing indocyanine green cause interferences on Total and/or Direct Bilirubin and must not be measured. Avni Clifford [facility] CHEMISTRY SUSANNAH LEONE [facility]# [id number] [facility] [place] [address] * (ABNORMAL) CBC WITH DIFFERENTIAL (07/04/2022 11:09 AM PROTOZOOLOGY TEACHER) [facility] WBC 4.1 4.0 - 9.8 K/uL 07/04/2022 12:[address] [facility] RBC 2.96(L) 4.50 - 5.40 M/uL 07/04/2022 12:[address] [facility] HEMOGLOBIN 8.9(L) 13.6 - 16.5 g/dL 07/04/2022 12:[address] [facility] HEMATOCRIT 28.1(L) 40.0 - 48.0 % 07/04/2022 12:29 PM PROTOZOOLOGY TEACHER [facility] MCV 94.9 82.0 - 99.0 fL 07/04/2022 12:29 PM PROTOZOOLOGY TEACHER [facility]ATORY [facility] - [facility] MCH 30.1 27.2 - 32.6 pg 07/04/2022 12:29 PM PROTOZOOLOGY TEACHER [facility] - [facility] MCHC 31.7 31.5 - 35.5 g/dL 07/04/2022 12:29 PM PROTOZOOLOGY TEACHER [facility] RDW 15.8(H) 11.5 - 14.5 % 07/04/2022 12:29 PM PROTOZOOLOGY TEACHER [facility] RDW-STDEV 54.1(H) 37.1 - 48.7 fL 07/04/2022 12:29 PM PROTOZOOLOGY TEACHER [facility] PLATELETS 323 140 - 350 K/uL 07/04/2022 12:29 PM PROTOZOOLOGY TEACHER [facility] MPV 9.1(L) 9.3 - 12.4 fL 07/04/2022 12:29 PM PROTOZOOLOGY TEACHER [facility] NEUTROPHILS 55 % 07/04/2022 12:29 PM PROTOZOOLOGY TEACHER [facility] LYMPHOCYTES 27 % 07/04/2022 12:29 PM PROTOZOOLOGY TEACHER [facility] MONOCYTES 13 % 07/04/2022 12:29 PM PROTOZOOLOGY TEACHER [facility] EOSINOPHILS 3 % 07/04/2022 12:29 PM PROTOZOOLOGY TEACHER [facility] BASOPHILS 1 % 07/04/2022 12:29 PM PROTOZOOLOGY TEACHER [facility] IMMATURE GRANULOCYTES 1 % 07/04/2022 12:29 PM PROTOZOOLOGY TEACHER [facility] Comment:IG (Immature Granulo cyte) count includes Metamyelocytes, Myelocytes, and Promyelocytes NEUTROPHIL ABSOLUTE 2.29 1.90 - 7.00 K/uL 07/04/2022 12:29 PM PROTOZOOLOGY TEACHER [facility] LYMPHOCYTE ABSOLUTE 1.13 0.70 - 4.50 K/uL 07/04/2022 12:29 PM PROTOZOOLOGY TEACHER [facility] MONOCYTE ABSOLUTE 0.53 0.10 - 1.30 K/uL 07/04/2022 12:29 PM PROTOZOOLOGY TEACHER [facility] - [facility] EOSINOPHIL ABSOLUTE 0.14 0.00 - 0.70 K/uL 07/04/2022 12:29 PM [facility] LABORATORY [facility] BASOPHILS ABSOLUTE 0.03 0.00 - 0.20 K/uL 07/04/2022 12:29 PM [facility] IMMATURE GRANULOCYTES ABSOLUTE 0.02 0.00 - 0.03 K/uL 07/04/2022 12:29 PM [facility] Blood Venipuncture / Unknown 07/04/2022 11:09 AM PROTOZOOLOGY TEACHER 07/04/2022 12:22 PM PROTOZOOLOGY TEACHER [facility] [place] HEMATOLOGY ORD ERABLES [facility] CLIA# [id number] [address] [facility] [place] [address] * POC GLUCOSE (07/04/2022 7:17 AM PROTOZOOLOGY TEACHER) GLUCOSE POC 89 74 - 99 mg/dL 07/04/2022 7:17 AM [facility] SPECIMEN SOURCE, GLUCOSE POC Whole Blood 07/04/2022 7:17 AM [facility] COMMENT, GLU POC Notified RN/MD 07/04/2022 7:17 AM [facility] Blood, whole 07/04/2022 7:17 AM PROTOZOOLOGY TEACHER 07/04/2022 7:39 AM PROTOZOOLOGY TEACHER Srinivas Jon MD POINT OF CARE TESTIN G [facility] CLIA # [id number] [place], [place] [id number] * (ABNORMAL) POC GLUCOSE (07/03/2022 8:09 PM PROTOZOOLOGY TEACHER) GLUCOSE POC 271(H) 74 - 99 mg/dL 07/03/2022 8:09 PM [facility] SPECIMEN SOURCE, GLUCOSE POC Whole Blood 07/03/2022 8:09 PM [facility] Blood, whole 07/03/2022 8:09 PM PROTOZOOLOGY TEACHER 07/03/2022 8:24 PM PROTOZOOLOGY TEACHER Srinivas Jon MD POINT OF CARE TESTIN G [facility] CLIA # [id number] [place] [address] * (ABNORMAL) POC GLUCOSE (07/03/2022 4:31 PM PROTOZOOLOGY TEACHER) GLUCOSE POC 368(H) 74 - 99 mg/dL 07/03/2022 4:31 PM PROTOZOOLOGY TEACHER [facility] SPECIMEN SOURCE, GLUCOSE POC Whole Blood 07/03/2022 4:31 PM PROTOZOOLOGY TEACHER [facility] COMMENT, GLU POC Notified RN/MD 07/03/2022 4:31 PM PROTOZOOLOGY TEACHER [facility] Blood, whole 07/03/2022 4:31 PM PROTOZOOLOGY TEACHER 07/03/2022 4:45 PM PROTOZOOLOGY TEACHER Srinivas Jon MD POINT OF CARE TESTDUSTIN G Performing Organization Address [facility]/ZIP Co de Phone Number [facility] CLIA # [id number] [place] [address] * (ABNORMAL) POC GLUCOSE (07/03/2022 11:22 AM PROTOZOOLOGY TEACHER) GLUCOSE POC 316(H) 74 - 99 mg/dL 07/03/2022 11:22 AM PROTOZOOLOGY TEACHER [facility] SPECIMEN SOURCE, GLUCOSE POC Whole Blood 07/03/2022 11:22 AM PROTOZOOLOGY TEACHER [facility] COMMENT, GLU POC Notified RN/MD 07/03/2022 11:22 AM PROTOZOOLOGY TEACHER [facility] Blood, whole 07/03/2022 11:2 2 AM PROTOZOOLOGY TEACHER 07/03/2022 11:35 AM PROTOZOOLOGY TEACHER Srinivas Jon MD POINT OF CARE TESTDUSTIN G [facility] CLIA # [id number] [place] [address] * XR CHEST PA OR AP 1 VW (07/03/2022 9:35 AM PROTOZOOLOGY TEACHER) Anatomical Region Laterality Modality Chest Other Avni Clifford DMS DIAGNOSTIC AMARILYS GING ORDERABLES * POC GLUCOSE (07/03/2022 7:35 AM PROTOZOOLOGY TEACHER) GLUCOSE POC 80 74 - 99 mg/dL 07/03/2022 7:35 AM PROTOZOOLOGY TEACHER [facility] SPECIMEN SOURCE, GLUCOSE POC Whole Blood 07/03/2022 7:35 AM PROTOZOOLOGY TEACHER [facility] Blood, whole 07/03/2022 7:35 AM PROTOZOOLOGY TEACHER 07/03/2022 7:43 AM PROTOZOOLOGY TEACHER Srinivas Jon MD POINT OF CARE TESTIN G [facility] CLIA # [id number] [place] [address] * CK (07/03/2022 5:44 AM PROTOZOOLOGY TEACHER) Pathologist [facility] CK 37 20 - 200 U/L 07/03/2022 9:02 AM PROTOZOOLOGY TEACHER [facility] Blood Venipuncture / Unknown 07/03/2022 5:44 AM PROTOZOOLOGY TEACHER 07/03/2022 8:17 AM PROTOZOOLOGY TEACHER Jasmin Bradley MD CHEMISTRY ORDERABLES [facility] [a]list games [facility] CLIA# [id number] [address] [facility] [place] [address] * (ABNORMAL) BRAIN NATRIURETIC PEPTIDE, BNP OR PROBNP (07/03/2022 5:44 AM PROTOZOOLOGY TEACHER) PROBNP, N TERMINAL 5,888(H) <124 pg/mL 07/03/2022 9:02 AM PROTOZOOLOGY TEACHER [facility] LABORATORY [facility] Comment: Reference values for screening purposes based on fourdrinier operator's recommendation: Patients less than 75 years: <125 [...] Blood Venipuncture / Unknown 07/03/2022 5:44 AM PROTOZOOLOGY TEACHER 07/03/2022 8:17 AM PROTOZOOLOGY TEACHER [facility] [place] CHEMISTRY HUANIsaias SULEMA Performing Organization Address [facility] Co de Phone Number [facility]# [id number] [address] [place] [address] * (ABNORMAL) C-REACTIVE PROTEIN (07/03/2022 5:44 AM PROTOZOOLOGY TEACHER) CRP 6.3(H) <5.0 mg/L 07/03/2022 9:02 AM PROTOZOOLOGY TEACHER [facility] LABORATORY [facility] Blood Venipuncture / Unknown 07/03/2022 5:44 AM PROTOZOOLOGY TEACHER 07/03/2022 8:17 AM PROTOZOOLOGY TEACHER [facility] [place] CHEMISTRY SUSANNAH LEONE Performing Organization Address [facility] Co de Phone Number [facility]# [id number] [address] [place] [address] * MAGNESIUM LEVEL (07/03/2022 5:44 AM PROTOZOOLOGY TEACHER) MAGNESIUM 2.3 1.6 - 2.6 mg/dL 07/03/2022 9:02 AM PROTOZOOLOGY TEACHER [facility] LABORATORY [facility] Blood Venipuncture / Unknown 07/03/2022 5:44 AM PROTOZOOLOGY TEACHER 07/03/2022 8:17 AM PROTOZOOLOGY TEACHER Avni Stoner Venessa DMS CHEMISTRY SUSANNAH LEONE [facility] LABORATORY SERVICES [facility]# [id number] [address] [place] [address] * (ABNORMAL) COMPREHENSIVE METABOLIC PANEL (07/03/2022 5:44 AM PROTOZOOLOGY TEACHER) SODIUM 137 136 - 145 mmol/L 07/03/2022 9:16 AM [facility] LAB[facility]ATORY SERVICES - [facility] POTASSIUM 3.4(L) 3.5 - 5.0 mmol/L 07/03/2022 9:16 AM [facility] LAB[facility]ATORY SERVICES - [facility] CHLORIDE 96(L) 98 - 107 mmol/L 07/03/2022 9:16 AM [facility] CO2 25 22 - 29 mmol/L 07/03/2022 9:16 AM [facility] CALCIUM 9.4 8.6 - 10.2 mg/dL 07/03/2022 9:16 AM [facility] BUN 46(H) 6 - 20 mg/dL 07/03/2022 9:16 AM [facility] CREATININE 8.80(H) 0.67 - 1.17 mg/dL 07/03/2022 9:16 AM [facility] GLUCOSE 113(H) 74 - 99 mg/dL 07/03/2022 9:16 AM [facility] TOTAL PROTEIN 6.3(L) 6.7 - 8.6 g/dL 07/03/2022 9:16 AM [facility] ALBUMIN 3.1(L) 3.5 - 5.2 g/dL 07/03/2022 9:16 AM PROTOZOOLOGY TEACHER [facility] BILIRUBIN TOTAL 0.3 0.3 - 1.2 mg/dL 07/03/2022 9:16 AM [facility] ALKALINE PHOSPHATASE 105 40 - 129 U/L 07/03/2022 9:16 AM PROTOZOOLOGY TEACHER [facility] AST 38 <41 U/L 07/03/2022 9:16 AM [facility] [a]list games [facility] ALT 38 <42 U/L 07/03/2022 9:[address] [facility] GFR 7(L) >=60 mL/min/1.7 3 sq meter 07/03/2022 9:16 AM [facility] [a]list games [facility] Comment:eGFR calculated with 2020 CKD-EPI equation. Vegetarian diet, extremely high or low muscle mass, and may affect results. Cystatin C with Glomerular Filtration Rate is a suitable alternative for these patients. ANION GAP 16 8 - 16 mmol/L 07/03/2022 9:16 AM [facility] [a]list games [facility] Blood Venipuncture / Unknown 07/03/2022 5:44 AM PROTOZOOLOGY TEACHER 07/03/2022 8:17 AM [facility] - 07/03/2022 9:16 AM PROTOZOOLOGY TEACHER Samples containing indocyanine green cause interferences on Total and/or Direct Bilirubin and must not be measured. Avni Clifford [facility] CHEMISTRY SUSANNAH LEONE [facility] [a]list games [facility]# [id number] [facility] [place] [address] * (ABNORMAL) CBC WITH DIFFERENTIAL (07/03/2022 5:44 AM PROTOZOOLOGY TEACHER) WBC 3.7(L) 4.0 - 9.8 K/uL 07/03/2022 8:34 AM [facility] [a]list games [facility] RBC 2.95(L) 4.50 - 5.40 M/uL 07/03/2022 8:34 AM [facility] [a]list games [facility] HEMOGLOBIN 8.8(L) 13.6 - 16.5 g/dL 07/03/2022 8:34 AM [facility] [a]list games [facility] HEMATOCRIT 27.7(L) 40.0 - 48.0 % 07/03/2022 8:34 AM [facility] [a]list games [facility] MCV 93.9 82.0 - 99.0 fL 07/03/2022 8:34 AM PROTOZOOLOGY TEACHER [facility] MCH 29.8 27.2 - 32.6 pg 07/03/2022 8:34 AM PROTOZOOLOGY TEACHER [facility] MCHC 31.8 31.5 - 35.5 g/dL 07/03/2022 8:34 AM PROTOZOOLOGY TEACHER [facility] RDW 16.0(H) 11.5 - 14.5 % 07/03/2022 8:34 AM PROTOZOOLOGY TEACHER [facility] RDW-STDEV 55.0(H) 37.1 - 48.7 fL 07/03/2022 8:34 AM PROTOZOOLOGY TEACHER [facility] PLATELETS 368(H) 140 - 350 K/uL 07/03/2022 8:34 AM PROTOZOOLOGY TEACHER [facility] MPV 9.4 9.3 - 12.4 fL 07/03/2022 8:34 AM PROTOZOOLOGY TEACHER [facility] NEUTROPHILS 40 % 07/03/2022 8:34 AM PROTOZOOLOGY TEACHER [facility] LYMPHOCYTES 37 % 07/03/2022 8:34 AM PROTOZOOLOGY TEACHER [facility] MONOCYTES 15 % 07/03/2022 8:34 AM PROTOZOOLOGY TEACHER [facility] EOSINOPHILS 6 % 07/03/2022 8:34 AM PROTOZOOLOGY TEACHER [facility] BASOPHILS 1 % 07/03/2022 8:34 AM PROTOZOOLOGY TEACHER [facility] IMMATURE GRANULOCYTES 1 % 07/03/2022 8:34 AM PROTOZOOLOGY TEACHER [facility] Comment:IG (Immature Granulo cyte) count includes Metamyelocytes, Myelocytes, and Promyelocytes NEUTROPHIL ABSOLUTE 1.47(L) 1.90 - 7.00 K/uL 07/03/2022 8:34 AM PROTOZOOLOGY TEACHER [facility] LYMPHOCYTE ABSOLUTE 1.35 0.70 - 4.50 K/uL 07/03/2022 8:34 AM PROTOZOOLOGY TEACHER [facility] MONOCYTE ABSOLUTE 0.56 0.10 - 1.30 K/uL 07/03/2022 8:34 AM PROTOZOOLOGY TEACHER [facility] EOSINOPHIL ABSOLUTE 0.21 0.00 - 0.70 K/uL 07/03/2022 8:34 AM PROTOZOOLOGY TEACHER [facility] BASOPHILS ABSOLUTE 0.04 0.00 - 0.20 K/uL 07/03/2022 8:34 AM PROTOZOOLOGY TEACHER [facility] LABORATORY [facility] IMMATURE GRANULOCYTES ABSOLUTE 0.02 0.00 - 0.03 K/uL 07/03/2022 8:34 AM PROTOZOOLOGY TEACHER [facility] LABORATORY [facility] Blood Venipuncture / Unknown 07/03/2022 5:44 AM PROTOZOOLOGY TEACHER 07/03/2022 8:17 AM PROTOZOOLOGY TEACHER [facility] [place] HEMATOLOGY ORD ERABLES [facility] CLIA# [id number] [address] [place] [address] * (ABNORMAL) POC GLUCOSE (07/02/2022 7:51 PM PROTOZOOLOGY TEACHER) GLUCOSE POC 346(H) 74 - 99 mg/dL 07/02/2022 7:51 PM [facility] SPECIMEN SOURCE, GLUCOSE POC Whole Blood 07/02/2022 7:51 PM PROTOZOOLOGY TEACHER [facility] COMMENT, GLU POC Notified RN/MD 07/02/2022 7:51 PM [facility] Blood, whole 07/02/2022 7:51 PM PROTOZOOLOGY TEACHER 07/02/2022 8:13 PM PROTOZOOLOGY TEACHER Srinivas Jon MD POINT OF CARE TESTIN G [facility] CLIA # [id number] [place] [address] * (ABNORMAL) POC GLUCOSE (07/02/2022 4:31 PM PROTOZOOLOGY TEACHER) GLUCOSE POC 292(H) 74 - 99 mg/dL 07/02/2022 4:31 PM [facility] SPECIMEN SOURCE, GLUCOSE POC Whole Blood 07/02/2022 4:31 PM [facility] Blood, whole 07/02/2022 4:31 PM PROTOZOOLOGY TEACHER 07/02/2022 4:45 PM PROTOZOOLOGY TEACHER Srinivas Jon MD POINT OF CARE TESTDUSTIN G [facility] CLIA # [id number] [place] [address] * (ABNORMAL) POC GLUCOSE (07/02/2022 12:06 PM PROTOZOOLOGY TEACHER) GLUCOSE POC 187(H) 74 - 99 mg/dL 07/02/2022 12:06 PM PROTOZOOLOGY TEACHER [facility] SPECIMEN SOURCE, GLUCOSE POC Whole Blood 07/02/2022 12:06 PM PROTOZOOLOGY TEACHER [facility] Blood, whole 07/02/2022 12:0 6 PM PROTOZOOLOGY TEACHER 07/02/2022 12:16 PM PROTOZOOLOGY TEACHER Srinivas Jon MD POINT OF CARE TESTDUSTIN Crow Performing Organization Address City/[facility]/ZIP Co de Phone Number [facility] CLIA # [id number] [place] [address] * (ABNORMAL) POC GLUCOSE (07/02/2022 7:37 AM PROTOZOOLOGY TEACHER) GLUCOSE POC 120(H) 74 - 99 mg/dL 07/02/2022 7:37 AM PROTOZOOLOGY TEACHER [facility] SPECIMEN SOURCE, GLUCOSE POC Whole Blood 07/02/2022 7:37 AM PROTOZOOLOGY TEACHER [facility] Blood, whole 07/02/2022 7:37 AM PROTOZOOLOGY TEACHER 07/02/2022 7:47 AM PROTOZOOLOGY TEACHER Srinivas Jon MD POINT OF CARE TESTDUSTIN Crow [facility] CLIA # [id number] [place] [address] * (ABNORMAL) POC GLUCOSE (07/01/2022 7:46 PM PROTOZOOLOGY TEACHER) GLUCOSE POC 240(H) 74 - 99 mg/dL 07/01/2022 7:46 PM PROTOZOOLOGY TEACHER [facility] SPECIMEN SOURCE, GLUCOSE POC Whole Blood 07/01/2022 7:46 PM PROTOZOOLOGY TEACHER [facility] COMMENT, GLU POC Notified RN/MD 07/01/2022 7:46 PM PROTOZOOLOGY TEACHER [facility] Blood, whole 07/01/2022 7:46 PM PROTOZOOLOGY TEACHER 07/01/2022 7:57 PM PROTOZOOLOGY TEACHER Srinivas Jon MD POINT OF CARE TESTDUSTIN Crow [facility] CLIA # [id number] [place] [address] * (ABNORMAL) POC GLUCOSE (07/01/2022 5:00 PM PROTOZOOLOGY TEACHER) GLUCOSE POC 229(H) 74 - 99 mg/dL 07/01/2022 5:00 PM PROTOZOOLOGY TEACHER [facility] SPECIMEN SOURCE, GLUCOSE POC Whole Blood 07/01/2022 5:00 PM PROTOZOOLOGY TEACHER [facility] Blood, whole 07/01/2022 5:00 PM PROTOZOOLOGY TEACHER 07/01/2022 5:09 PM PROTOZOOLOGY TEACHER Srinivas Jon MD POINT OF CARE TESTDUSTIN Crow Performing Organization Address City/[facility]/ZIP Co de Phone Number [facility] CLIA # [id number] [place] [address] * (ABNORMAL) POC GLUCOSE (07/01/2022 12:11 PM PROTOZOOLOGY TEACHER) GLUCOSE POC 205(H) 74 - 99 mg/dL 07/01/2022 12:11 PM PROTOZOOLOGY TEACHER [facility] SPECIMEN SOURCE, GLUCOSE POC Whole Blood 07/01/2022 12:11 PM PROTOZOOLOGY TEACHER [facility] Blood, whole 07/01/2022 12:1 1 PM PROTOZOOLOGY TEACHER 07/01/2022 12:23 PM PROTOZOOLOGY TEACHER Srinivas Jon MD POINT OF CARE TESTDUSTIN Crow [facility] CLIA # [id number] [place] [address] * (ABNORMAL) POC GLUCOSE (07/01/2022 7:21 AM PROTOZOOLOGY TEACHER) GLUCOSE POC 216(H) 74 - 99 mg/dL 07/01/2022 7:21 AM PROTOZOOLOGY TEACHER [facility] SPECIMEN SOURCE, GLUCOSE POC Whole Blood 07/01/2022 7:21 AM PROTOZOOLOGY TEACHER [facility] Blood, whole 07/01/2022 7:21 AM PROTOZOOLOGY TEACHER 07/01/2022 7:32 AM PROTOZOOLOGY TEACHER Srinivas Jon MD POINT OF CARE TESTIN G [facility] CLIA # [id number] [place] [address] * (ABNORMAL) URIC ACID (07/01/2022 5:19 AM PROTOZOOLOGY TEACHER) [facility] URIC ACID 8.4(H) 3.4 - 7.0 mg/dL 07/02/2022 11:15 PM PROTOZOOLOGY TEACHER [facility] Blood Venipuncture / Unknown 07/01/2022 5:19 AM PROTOZOOLOGY TEACHER 07/01/2022 9:45 AM PROTOZOOLOGY TEACHER Jasmin Bradley MD CHEMISTRY ORDERABLES [facility] CLIA# [id number] 5 SSharath [facility] [place] [address] * (ABNORMAL) CBC WITH DIFFERENTIAL (07/01/2022 5:19 AM PROTOZOOLOGY TEACHER) Pathologist [facility] WBC 3.5(L) 4.0 - 9.8 K/uL 07/01/2022 10:07 AM [facility] RBC 2.87(L) 4.50 - 5.40 M/uL 07/01/2022 10:07 AM PROTOZOOLOGY TEACHER [facility] HEMOGLOBIN 8.7(L) 13.6 - 16.5 g/dL 07/01/2022 10:07 AM [facility] HEMATOCRIT 26.9(L) 40.0 - 48.0 % 07/01/2022 10:07 AM [facility] MCV 93.7 82.0 - 99.0 fL 07/01/2022 10:07 AM [facility] MCH 30.3 27.2 - 32.6 pg 07/01/2022 10:07 AM [facility] MCHC 32.3 31.5 - 35.5 g/dL 07/01/2022 10:07 AM [facility] RDW 15.9(H) 11.5 - 14.5 % 07/01/2022 10:07 AM [facility] RDW-STDEV 55.0(H) 37.1 - 48.7 fL 07/01/2022 10:07 AM [facility] PLATELETS 382(H) 140 - 350 K/uL 07/01/2022 10:07 AM [facility] MPV 9.7 9.3 - 12.4 fL 07/01/2022 10:07 AM [facility] NEUTROPHILS 41 % 07/01/2022 10:07 AM [facility] LYMPHOCYTES 31 % 07/01/2022 10:07 AM [facility] MONOCYTES 17 % 07/01/2022 10:07 AM [facility] EOSINOPHILS 8 % 07/01/2022 10:07 AM [facility] BASOPHILS 1 % 07/01/2022 10:07 AM [facility] IMMATURE GRANULOCYTES 1 % 07/01/2022 10:07 AM [facility] Comment:IG (Immature Granulo cyte) count includes Metamyelocytes, Myelocytes, and Promyelocytes NEUTROPHIL ABSOLUTE 1.44(L) 1.90 - 7.00 K/uL 07/01/2022 10:07 AM [facility] LYMPHOCYTE ABSOLUTE 1.11 0.70 - 4.50 K/uL 07/01/2022 10:07 AM PROTOZOOLOGY TEACHER [facility] MONOCYTE ABSOLUTE 0.61 0.10 - 1.30 K/uL 07/01/2022 10:07 AM PROTOZOOLOGY TEACHER [facility] EOSINOPHIL ABSOLUTE 0.29 0.00 - 0.70 K/uL 07/01/2022 10:07 AM PROTOZOOLOGY TEACHER [facility] BASOPHILS ABSOLUTE 0.05 0.00 - 0.20 K/uL 07/01/2022 10:07 AM PROTOZOOLOGY TEACHER [facility] IMMATURE GRANULOCYTES ABSOLUTE 0.04(H) 0.00 - 0.03 K/uL 07/01/2022 10:07 AM [facility] Blood Venipuncture / Unknown 07/01/2022 5:19 AM PROTOZOOLOGY TEACHER 07/01/2022 9:45 AM PROTOZOOLOGY TEACHER Jasmin Bradley MD HEMATOLOGY ORDERABLE S [facility]# [id number] [address] [place] [address] [facility] [address] * (ABNORMAL) RENAL FUNCTION PANEL (07/01/2022 5:19 AM PROTOZOOLOGY TEACHER) SODIUM 131(L) 136 - 145 mmol/L 07/01/2022 10:19 AM [facility] - . [facility] POTASSIUM 3.3(L) 3.5 - 5.0 mmol/L 07/01/2022 10:19 AM PROTOZOOLOGY TEACHER [facility] - . [facility] CHLORIDE 91(L) 98 - 107 mmol/L 07/01/2022 10:19 AM PROTOZOOLOGY TEACHER [facility] CO2 26 22 - 29 mmol/L 07/01/2022 10:19 AM [facility] CALCIUM 9.0 8.6 - 10.2 mg/dL 07/01/2022 10:19 AM [facility] BUN 48(H) 6 - 20 mg/dL 07/01/2022 10:19 AM [facility] CREATININE 9.56(H) 0.67 - 1.17 mg/dL 07/01/2022 10:[address] [facility] GLUCOSE 273(H) 74 - 99 mg/dL 07/01/2022 10:[address] [facility] ALBUMIN 2.9(L) 3.5 - 5.2 g/dL 07/01/2022 10:[address] [facility] PHOSPHORUS 5.3(H) 2.5 - 4.5 mg/dL 07/01/2022 10:[address] [facility] GFR 6(L) >=60 mL/min/1.7 3 sq meter 07/01/2022 10:[address] [facility] Comment:eGFR calculated with 2020 CKD-EPI equation. Vegetarian diet, extremely high or low muscle mass, and may affect results. Cystatin C with Glomerular Filtration Rate is a suitable alternative for these patients. ANION GAP 14 8 - 16 mmol/L 07/01/2022 10:[address] [facility] Blood Venipuncture / Unknown 07/01/2022 5:19 AM PROTOZOOLOGY TEACHER 07/01/2022 9:45 AM PROTOZOOLOGY TEACHER Jasmin Bradley MD CHEMISTRY ORDERABLES [facility]# [id number] [address] [facility] [place] [address] * (ABNORMAL) POC GLUCOSE (06/30/2022 8:10 PM PROTOZOOLOGY TEACHER) GLUCOSE POC 232(H) 74 - 99 mg/dL 06/30/2022 8:10 PM [facility] SPECIMEN SOURCE, GLUCOSE POC Whole Blood 06/30/2022 8:10 PM [facility] COMMENT, GLU POC Notified RN/MD 06/30/2022 8:10 PM [facility] Blood, whole 06/30/2022 8:10 PM PROTOZOOLOGY TEACHER 06/30/2022 8:25 PM PROTOZOOLOGY TEACHER Srinivas Jon MD POINT OF CARE TESTIN G Performing Organization Address City/[facility]/ZIP Co de Phone Number [facility] CLIA # [id number] [place] [address] * (ABNORMAL) POC GLUCOSE (06/30/2022 4:31 PM PROTOZOOLOGY TEACHER) GLUCOSE POC 260(H) 74 - 99 mg/dL 06/30/2022 4:31 PM PROTOZOOLOGY TEACHER [facility] SPECIMEN SOURCE, GLUCOSE POC Whole Blood 06/30/2022 4:31 PM PROTOZOOLOGY TEACHER [facility] Blood, whole 06/30/2022 4:31 PM PROTOZOOLOGY TEACHER 06/30/2022 5:11 PM PROTOZOOLOGY TEACHER Srinivas Jon MD POINT OF CARE TESTIN G Performing Organization Address [facility]/ZIP Co de Phone Number [facility] CLIA # [id number] [place] [address] * (ABNORMAL) URINALYSIS WITH REFLEX MICROSCOPIC (06/30/2022 2:55 PM PROTOZOOLOGY TEACHER) COLOR UA Yellow Pale to Dark Yellow 06/30/2022 4:08 PM PROTOZOOLOGY TEACHER [facility] CLARITY UA Clear Clear 06/30/2022 4:08 PM PROTOZOOLOGY TEACHER [facility] SPECIFIC GRAVITY UA 1.024 1.003 - 1.035 06/30/2022 4:08 PM PROTOZOOLOGY TEACHER [facility] PH UA 5.0 5.0 - 8.0 06/30/2022 4:08 PM PROTOZOOLOGY TEACHER [facility] - . [facility] LEUKOCYTE ESTERASE UA Negative Negative 06/30/2022 4:08 PM PROTOZOOLOGY TEACHER [facility] - [facility] NITRITE UA Negative Negative 06/30/2022 4:08 PM PROTOZOOLOGY TEACHER [facility] - [facility] PROTEIN UA Negative Negative 06/30/2022 4:08 PM PROTOZOOLOGY TEACHER [facility] - [facility] GLUCOSE UA 2+(A) Negative 06/30/2022 4:08 PM PROTOZOOLOGY TEACHER [facility] - . [facility] KETONES UA Negative Negative 06/30/2022 4:08 PM PROTOZOOLOGY TEACHER [facility] - [facility] UROBILINOGEN UA Normal <2.0 mg/dL 4:08 PM PROTOZOOLOGY TEACHER [facility] LABORATORY [facility] BILIRUBIN UA Negative Negative 06/30/2022 4:08 PM PROTOZOOLOGY TEACHER [facility] BLOOD UA Negative Negative 06/30/2022 4:08 PM PROTOZOOLOGY TEACHER [facility] LABORATORY [facility] Urine URINE SPECIMEN OBTAINED BY CLEAN CATCH PROCEDURE / Unknown Collection / Unknown 06/30/2022 2:55 PM PROTOZOOLOGY TEACHER 06/30/2022 3:45 PM PROTOZOOLOGY TEACHER [facility] [place] [facility]L [id number] [address] [place] [address] * (ABNORMAL) URINE CULTURE (06/30/2022 2:55 PM PROTOZOOLOGY TEACHER) CULTURE STAPHYLOCOCCUS EPIDERMIDIS(A) LARISA MCG/ML 07/02/2022 12:31 PM PROTOZOOLOGY TEACHER [facility] LABORATORY [facility] Comment:No further workup in dicated. Urine URINE SPECIMEN OBTAINED BY CLEAN CATCH PROCEDURE / Unknown Collection / Unknown 06/30/2022 2:55 PM PROTOZOOLOGY TEACHER 06/30/2022 3:45 PM PROTOZOOLOGY TEACHER [employer] [place] MICROBIOLOGY - [facility]AL [facility]ABLES [id number] [address] [place] [address] * (ABNORMAL) POC GLUCOSE (06/30/2022 11:42 AM PROTOZOOLOGY TEACHER) GLUCOSE POC 213(H) 74 - 99 mg/dL 06/30/2022 11:42 AM PROTOZOOLOGY TEACHER [facility] SPECIMEN SOURCE, GLUCOSE POC Whole Blood 06/30/2022 11:42 AM PROTOZOOLOGY TEACHER [facility] Blood, whole 06/30/2022 11:4 2 AM PROTOZOOLOGY TEACHER 06/30/2022 11:55 AM PROTOZOOLOGY TEACHER Srinivas Jon MD POINT OF CARE TESTIN G [facility] CLIA # [id number] [place] [address] * (ABNORMAL) POC GLUCOSE (06/30/2022 7:03 AM PROTOZOOLOGY TEACHER) GLUCOSE POC 216(H) 74 - 99 mg/dL 06/30/2022 7:03 AM PROTOZOOLOGY TEACHER [facility] SPECIMEN SOURCE, GLUCOSE POC Whole Blood 06/30/2022 7:03 AM PROTOZOOLOGY TEACHER [facility] Blood, whole 06/30/2022 7:03 AM PROTOZOOLOGY TEACHER 06/30/2022 7:23 AM PROTOZOOLOGY TEACHER Srinivas Jon MD POINT OF CARE TESTDUSTIN Crow Performing Organization Address [facility] Co de Phone Number [facility] CLIA # [id number] [place] [address] * HEPATITIS B SURFACE ANTIGEN (06/30/2022 5:46 AM PROTOZOOLOGY TEACHER) Pathologist [facility] HEPATITIS B SURFACE AG NON-REACT CARA Non-react cara 06/30/2022 11:26 AM PROTOZOOLOGY TEACHER [facility] LABORATORY [facility] Comment:A non-reactive test result does not exclude the possibility of exposure to or infection with hepatitis B. Blood Venipuncture / Unknown 06/30/2022 5:46 AM PROTOZOOLOGY TEACHER 06/30/2022 10:40 AM PROTOZOOLOGY TEACHER Jasmin Bradley MD CHEMISTRY ORDERABLES [facility] [a]list games [facility] CLIA# [id number] [address] [place] [address] * HEPATITIS B SURFACE AB, QUANT (06/30/2022 5:46 AM PROTOZOOLOGY TEACHER) Pathologist [facility] HEPATITIS B SURF AB,QN 188.5 mlU/mL 06/30/2022 11:27 AM PROTOZOOLOGY TEACHER [facility] LABORATORY [facility] HEPATITIS B SURFACE AB INTERP Reactive See Interp 06/30/2022 11:27 AM [facility] [employer] [a]list games SERVICES [facility] Comment:Patient is considere d to be immune to infection with HBV. Blood Venipuncture / Unknown 06/30/2022 5:46 AM PROTOZOOLOGY TEACHER 06/30/2022 10:40 AM PROTOZOOLOGY TEACHER Jasmin Bradley MD CHEMISTRY ORDERABLES [facility] [a]list games [facility] CLIA# [id number] [address] [place] [address] * (ABNORMAL) COMPREHENSIVE METABOLIC PANEL (06/30/2022 5:46 AM PROTOZOOLOGY TEACHER) SODIUM 133(L) 136 - 145 mmol/L 06/30/2022 11:18 AM [facility] - [facility] POTASSIUM 3.3(L) 3.5 - 5.0 mmol/L 06/30/2022 11:18 AM [facility] [email or web address] [facility] CHLORIDE 90(L) 98 - 107 mmol/L 06/30/2022 11:18 AM [facility] [email or web address] [facility] CO2 25 22 - 29 mmol/L 06/30/2022 11:18 AM [facility] [email or web address] [facility] - . [facility] CALCIUM 9.1 8.6 - 10.2 mg/dL 06/30/2022 11:18 AM [facility] BUN 47(H) 6 - 20 mg/dL 06/30/2022 11:18 AM [facility] [employer] LABORATORY [facility] - . [facility] CREATININE 9.78(H) 0.67 - 1.17 mg/dL 06/30/2022 11:18 AM [facility] - [facility] [place] GLUCOSE 241(H) 74 - 99 mg/dL 06/30/2022 11:18 AM [facility] [email or web address] [facility] - . [facility] TOTAL PROTEIN 6.6(L) 6.7 - 8.6 g/dL 06/30/2022 11:18 AM [facility]AT[facility] - . [facility] ALBUMIN 3.1(L) 3.5 - 5.2 g/dL 06/30/2022 11:[address] [facility] BILIRUBIN TOTAL 0.4 0.3 - 1.2 mg/dL 06/30/2022 11:[address] [facility] ALKALINE PHOSPHATASE 106 40 - 129 U/L 06/30/2022 11:[address] [facility] AST 23 <41 U/L 06/30/2022 11:[address] [facility] ALT 31 <42 U/L 06/30/2022 11:[address] [facility] GFR 6(L) >=60 mL/min/1.7 3 sq meter 06/30/2022 11:[address] [facility] Comment:eGFR calculated with 2020 CKD-EPI equation. Vegetarian diet, extremely high or low muscle mass, and may affect results. Cystatin C with Glomerular Filtration Rate is a suitable alternative for these patients. ANION GAP 18(H) 8 - 16 mmol/L 06/30/2022 11:[address] [facility] Blood Venipuncture / Unknown 06/30/2022 5:46 AM PROTOZOOLOGY TEACHER 06/30/2022 10:40 AM [facility] - 06/30/2022 11:18 AM PROTOZOOLOGY TEACHER Samples containing indocyanine green cause interferences on Total and/or Direct Bilirubin and must not be measured. [facility] Clifford [facility] CHEMISTRY SUSANNAH LEONE Performing Organization Address City/State/[facility] Co de Phone Number [facility]# [id number] [facility] [place] [place] [address] * (ABNORMAL) CBC WITH DIFFERENTIAL (06/30/2022 5:46 AM PROTOZOOLOGY TEACHER) WBC 3.7(L) 4.0 - 9.8 K/uL 06/30/2022 10:[address] [facility] RBC 2.76(L) 4.50 - 5.40 M/uL 06/30/2022 10:[address] [facility] HEMOGLOBIN 8.4(L) 13.6 - 16.5 g/dL 06/30/2022 10:49 AM [facility] HEMATOCRIT 25.6(L) 40.0 - 48.0 % 06/30/2022 10:49 AM PROTOZOOLOGY TEACHER [facility] MCV 92.8 82.0 - 99.0 fL 06/30/2022 10:49 AM [facility] MCH 30.4 27.2 - 32.6 pg 06/30/2022 10:49 AM [facility] MCHC 32.8 31.5 - 35.5 g/dL 06/30/2022 10:49 AM [facility] RDW 16.4(H) 11.5 - 14.5 % 06/30/2022 10:49 AM [facility] RDW-STDEV 54.4(H) 37.1 - 48.7 fL 06/30/2022 10:49 AM [facility] PLATELETS 390(H) 140 - 350 K/uL 06/30/2022 10:49 AM [facility] MPV 10.0 9.3 - 12.4 fL 06/30/2022 10:49 AM [facility] NEUTROPHILS 43 % 06/30/2022 10:49 AM [facility] LYMPHOCYTES 32 % 06/30/2022 10:49 AM [facility] MONOCYTES 15 % 06/30/2022 10:49 AM [facility] EOSINOPHILS 8 % 06/30/2022 10:49 AM [facility] BASOPHILS 1 % 06/30/2022 10:49 AM [facility] IMMATURE GRANULOCYTES 1 % 06/30/2022 10:49 AM [facility] Comment:IG (Immature Granulo cyte) count includes Metamyelocytes, Myelocytes, and Promyelocytes NEUTROPHIL ABSOLUTE 1.57(L) 1.90 - 7.00 K/uL 06/30/2022 10:49 AM PROTOZOOLOGY TEACHER [facility] LYMPHOCYTE ABSOLUTE 1.16 0.70 - 4.50 K/uL 06/30/2022 10:49 AM PROTOZOOLOGY TEACHER [facility] MONOCYTE ABSOLUTE 0.56 0.10 - 1.30 K/uL 06/30/2022 10:49 AM PROTOZOOLOGY TEACHER [facility] LABORATORY [facility] EOSINOPHIL ABSOLUTE 0.29 0.00 - 0.70 K/uL 06/30/2022 10:49 AM PROTOZOOLOGY TEACHER [facility] LABORATORY [facility] BASOPHILS ABSOLUTE 0.03 0.00 - 0.20 K/uL 06/30/2022 10:49 AM PROTOZOOLOGY TEACHER [facility] LABORATORY [facility] IMMATURE GRANULOCYTES ABSOLUTE 0.05(H) 0.00 - 0.03 K/uL 06/30/2022 10:49 AM [facility] LABORATORY [facility] Blood Venipuncture / Unknown 06/30/2022 5:46 AM PROTOZOOLOGY TEACHER 06/30/2022 10:40 AM PROTOZOOLOGY TEACHER [employer] [facility] HEMATOLOGY ORD ERABLES [facility] [a]list games [facility] CLIA# [id number] 5 [facility] [place] [place] [address] * (ABNORMAL) VITAMIN D 25 HYDROXY (06/30/2022 5:46 AM PROTOZOOLOGY TEACHER) Pathologist [facility] VITAMIN D TOTAL (25OH) 17(L) 30 - 100 ng/mL 06/30/2022 11:29 AM PROTOZOOLOGY TEACHER [facility] [a]list games [facility] Blood Venipuncture / Unknown 06/30/2022 5:46 AM PROTOZOOLOGY TEACHER 06/30/2022 10:40 AM PROTOZOOLOGY TEACHER Narrative [facility] LABORATORY [facility] - 06/30/2022 11:29 AM PROTOZOOLOGY TEACHER Interpretive Data Chart: Deficient: ? 0 - 20 ng/mL Insufficient: ?21 - 29 ng/mL Sufficient: ?30 - 100 ng/mL Increased Risk of Hypercalciuria: ??>100 ng/ml Toxic: ? >150 ng/ml [employer] Stoner [employer] CHEMISTRY SUSANNAH LEONE Performing Organization Address City/[facility]/ZIP Co de Phone Number [facility] [a]list games [facility] CLIA# [id number] [address] [place] [address] * VITAMIN B12 LEVEL (06/30/2022 5:46 AM PROTOZOOLOGY TEACHER) VITAMIN B12 1,178 232 - 1,245 pg/mL 06/30/2022 11:29 AM PROTOZOOLOGY TEACHER [facility] [a]list games [facility] Comment:It has been reported that between 5 to 10% of patients with values between 200 and 400 pg/mL may experience neuropsychiatric and hematologic abnormalities due to occult B12 deficiency. Less than 1% of patients with values above 400 pg/mL will have symptoms. Blood Venipuncture / Unknown 06/30/2022 5:46 AM PROTOZOOLOGY TEACHER 06/30/2022 10:40 AM PROTOZOOLOGY TEACHER [employer] Stoner [employer] MATTHEW LEONE Performing Organization Address [facility] Co de Phone Number [facility] CLNC# [id number] [address] [place] [address] * TSH REFLEXIVE (06/30/2022 5:46 AM PROTOZOOLOGY TEACHER) TSH 3.75 0.27 - 4.20 uIU/mL 06/30/2022 11:22 AM PROTOZOOLOGY TEACHER [facility] [a]list games [facility] Blood Venipuncture / Unknown 06/30/2022 5:46 AM PROTOZOOLOGY TEACHER 06/30/2022 10:40 AM PROTOZOOLOGY TEACHER [employer] CHEMISTRY SUSANNAH LEONE Performing Organization Address City/[facility]/ZIP Co de Phone Number [facility] CLIA# [id number] [address] [place] [address] * (ABNORMAL) POC GLUCOSE (06/29/2022 9:52 PM PROTOZOOLOGY TEACHER) GLUCOSE POC 271(H) 74 - 99 mg/dL 06/29/2022 9:52 PM PROTOZOOLOGY TEACHER [facility] SPECIMEN SOURCE, GLUCOSE POC Whole Blood 06/29/2022 9:52 PM PROTOZOOLOGY TEACHER [facility] Blood, whole 06/29/2022 9:52 PM PROTOZOOLOGY TEACHER 06/29/2022 10:00 PM PROTOZOOLOGY TEACHER Srinivas Jon MD POINT OF CARE TESTDUSTIN Crow [facility] CLIA # [id number] [place] [address] * (ABNORMAL) POC GLUCOSE (06/29/2022 4:28 PM PROTOZOOLOGY TEACHER) GLUCOSE POC 265(H) 74 - 99 mg/dL 06/29/2022 4:28 PM PROTOZOOLOGY TEACHER [facility] SPECIMEN SOURCE, GLUCOSE POC Whole Blood 06/29/2022 4:28 PM PROTOZOOLOGY TEACHER [facility] Blood, whole 06/29/2022 4:28 PM PROTOZOOLOGY TEACHER 06/29/2022 4:47 PM PROTOZOOLOGY TEACHER Srinivas Jon MD POINT OF CARE TESTDUSTIN Crow [facility] CLIA # [id number] [address] [place] [address] documented in this encounter Visit Diagnoses Diagnosis [...] Coronary atherosclerosis of unspecified type of vessel, sauk-suiattle or graft Hyperparathyroidism Hyperparathyroidism, unspecified Congestive heart [...] admin instructions, Routine Given 06/29/2022 4:57 PM PROTOZOOLOGY TEACHER 650 mg acetaminophen (TYLENOL) tablet 650 mg 650 mg, Oral, EVERY 6 HOURS PRN, Starting on Mon06/29/22 at 2146, Until Mon07/08/22 at 1625, Other (See Comment), Pain, Moderate, Pain, Mild, See admin instructions, Routine Given 06/30/2022 8:01 AM PROTOZOOLOGY TEACHER 650 mg aspirin (JOSEPH CHEWABLE) chewable tablet 81 mg 81 mg, Oral, DAILY, First dose (after last modification) on Gregoria 06/30/22 at 0900, Until Discontinued Given 07/02/2022 7:55 AM PROTOZOOLOGY TEACHER 81 mg Given 07/01/2022 9:00 AM PROTOZOOLOGY TEACHER 81 mg Given 06/30/2022 8:01 AM PROTOZOOLOGY TEACHER 81 mg aspirin (ECOTRIN EC) tablet 81 mg 81 mg, Oral, DAILY, First dose on [place] 07/03/22 at 0900, Until Discontinued, Routine Given 07/08/2022 7:28 AM PROTOZOOLOGY TEACHER 81 mg Given 07/07/2022 8:42 AM PROTOZOOLOGY TEACHER 81 mg Given 07/06/2022 7:36 AM PROTOZOOLOGY TEACHER 81 mg atorvastatin (LIPITOR) tablet 80 mg 80 mg, Oral, DAILY, First dose (after last modification) on [facility] 06/30/22 at 0900, Until Discontinued Given 07/08/2022 7:28 AM PROTOZOOLOGY TEACHER 80 mg Given 07/07/2022 8:43 AM PROTOZOOLOGY TEACHER 80 mg Given 07/06/2022 7:37 AM PROTOZOOLOGY TEACHER 80 mg calcitRIOL (ROCALTROL) capsule 0.25 mcg 0.25 mcg, Oral, DAILY, First dose (after last modification) on [facility] 06/30/22 at 0900, Until Discontinued Given 07/08/2022 7:27 AM PROTOZOOLOGY TEACHER 0.25 mcg Given 07/07/2022 8:43 AM PROTOZOOLOGY TEACHER 0.25 mcg Given 07/06/2022 7:35 AM PROTOZOOLOGY TEACHER 0.25 mcg calcium acetate (CALPHRON) tablet 667 mg 667 mg, Oral, THREE TIMES DAILY BEFORE MEALS, First dose (after last modification) on Mon06/29/22 at 1630, Until Discontinued Given 07/08/2022 1:18 PM PROTOZOOLOGY TEACHER 667 mg Given 07/08/2022 7:30 AM PROTOZOOLOGY TEACHER 667 mg Given 07/07/2022 6:12 PM PROTOZOOLOGY TEACHER 667 mg cetirizine (ZyrTEC) tablet 5 mg 5 mg, Oral, DAILY PRN, Starting on Mon06/29/22 at 1448, Until Mon07/08/22 at 1625, Congestion, Allergies, Rhinitis, Routine Given 06/30/2022 8:01 AM PROTOZOOLOGY TEACHER 5 mg cloNIDine (QNDEPNRP-HOL-0) 0.1 mg/24 hr transdermal patch 1 Patch 1 Patch, Transdermal, EVERY 7 DAYS, First dose on [facility] 06/30/22 at 0600, Until Discontinued, Routine Applied 06/30/2022 5:47 AM PROTOZOOLOGY TEACHER 1 Patch Arm, Right Upper clopidogreL (PLAVIX) tablet 75 mg 75 mg, Oral, DAILY, First dose (after last modification) on [facility] 06/30/22 at 0900, Until Discontinued Given 07/08/2022 7:28 AM PROTOZOOLOGY TEACHER 75 mg Given 07/07/2022 8:43 AM PROTOZOOLOGY TEACHER 75 mg Given 07/06/2022 7:35 AM PROTOZOOLOGY TEACHER 75 mg colchicine (COLCRYS) tablet 0.6 mg 0.6 mg, Oral, EVERY 48 HOURS, First dose on [place] 06/30/22 at 0900, Until Discontinued, Routine Given 07/08/2022 7:28 AM PROTOZOOLOGY TEACHER 0.6 mg Given 07/06/2022 7:35 AM PROTOZOOLOGY TEACHER 0.6 mg Given 07/04/2022 8:26 AM PROTOZOOLOGY TEACHER 0.6 mg darbepoetin genia (ARANESP) 100 mcg/0.5 mL injection 100 mcg 100 mcg, subCUT, EVERY 7 DAYS, First dose on Mon07/03/22 at 0900, Until Discontinued, Routine, Reason for treatment with Epoetin/Darbepoetin: Anemia of Chronic Kidney Disease (on dialysis) Given 07/03/2022 10:05 AM PROTOZOOLOGY TEACHER 100 mcg Arm, Left Upper doxycycline monohydrate (MONODOX) capsule 50 mg 50 mg, Oral, EVERY 12 HOURS (BlD), First dose on Mon06/29/22 at 2100, Until Discontinued, Routine, Antibiotic Indication: Intra-abdominal infection / Fecal Contamination, Is sepsis suspected? Unlikely Given 07/07/2022 8:43 AM PROTOZOOLOGY TEACHER 50 mg Given 07/06/2022 8:18 PM PROTOZOOLOGY TEACHER 50 mg Given 07/06/2022 7:36 AM PROTOZOOLOGY TEACHER 50 mg doxycycline monohydrate (MONODOX) capsule 50 mg 50 mg, Oral, EVERY 12 HOURS (BlD), 5 doses, First dose (after last modification) on [place] 07/07/22 at 2100, Last dose on 07/09/22 at 2100, Routine, Antibiotic Indication: Intra-abdominal infection / Fecal Contamination, Is sepsis suspected? Unlikely Given 07/08/2022 7:29 AM PROTOZOOLOGY TEACHER 50 mg Given 07/07/2022 9:41 PM PROTOZOOLOGY TEACHER 50 mg ezetimibe (ZETIA) tablet 10 mg 10 mg, Oral, DAILY, First dose on [place] 06/30/22 at 0900, Until Discontinued, Routine Given 07/08/2022 7:28 AM PROTOZOOLOGY TEACHER 10 mg Given 07/07/2022 8:42 AM PROTOZOOLOGY TEACHER 10 mg Given 07/06/2022 7:37 AM PROTOZOOLOGY TEACHER 10 mg folic acid-Vit B6-Vit B12 (FOLTX) per tablet 1 Tablet 1 Tablet, Oral, DAILY, First dose on Mon06/29/22 at 1500, Until Discontinued, Routine Given 07/08/2022 7:29 AM PROTOZOOLOGY TEACHER 1 Tablet Given 07/07/2022 8:43 AM PROTOZOOLOGY TEACHER 1 Tablet Given 07/06/2022 7:36 AM PROTOZOOLOGY TEACHER 1 Tablet furosemide (LASIX) tablet 40 mg 40 mg, Oral, TWO TIMES DAILY, 7 HOURS APART, First dose (after last modification) on Mon07/04/22 at 1500, Until Discontinued, Routine Given 07/04/2022 4:0 0 PM PROTOZOOLOGY TEACHER 40 mg furosemide (LASIX) tablet 80 mg 80 mg, Oral, TWO TIMES DAILY, 7 HOURS APART, First dose on Mon06/29/22 at 1500, Until Discontinued, Routine Given 07/04/2022 8:26 AM PROTOZOOLOGY TEACHER 80 mg Given 07/03/2022 3:50 PM PROTOZOOLOGY TEACHER 80 mg Given 07/03/2022 7:47 AM [employer]OTOZOOLOG[employer] TE[employer]ER 80 mg furosemide (LASIX) tablet 80 mg 80 mg, Oral, DAILY, First dose (after last modification) on Mon07/05/22 at 0900, Until Discontinued, Routine Given 07/08/2022 7:29 AM [employer]OTOZOOLOG[employer] TE[employer]ER 80 mg Given 07/07/2022 8:42 AM [employer]OTOZOOLOG[employer] TE[employer]ER 80 mg Given 07/06/2022 7:36 AM [employer]OTOZOOLOG[employer] TE[employer]ER 80 mg gentamicin (GARAMYCIN) 0.1 % topical ointment Topical, DAILY, First dose (after last modification) on Mon06/30/22 at 0900, Until Discontinued Given 07/04/2022 9:00 AM PROTOZOOLOGY TE[employer]ER Other (Comment) Given 07/01/2022 5:00 PM [employer]OTOZOOLOGY TE[employer]ER Ab dominal Tissue Given 06/30/2022 9:00 AM PROTOZOOLOGY TEACHER Ot her (Comment) heparin injection 5,000 Units 5,000 Units, subCUT, EVERY 8 HOURS, First dose (after last modification) on Mon06/29/22 at 2100, Until Discontinued Given 07/08/2022 5:00 AM [employer]OTOZOOLOGY TE[employer]ER 5,000 Units Abdomen, Left Lower Quadrant Given 07/07/2022 9:41 PM [employer]OTOZOOLOG[employer] TE[employer]ER 5,000 Units A bdomen, Left Lower Quadrant Given 07/07/2022 3:52 PM [employer]OTOZOOLOGY TE[employer]ER 5,000 Units A bdominal Tissue HYDROcodone-acetaminophen (NORCO) 5-325 mg per tablet 1 Tablet 1 Tablet, Oral, EVERY 6 HOURS PRN, Starting on Mon06/29/22 at 2147, Until Mon07/08/22 at 1625, Pain (See admin instructions), Pain, Severe, Routine Given 07/06/2022 8:17 PM [employer]OTOZOOLOG[employer] TE[employer]ER 1 Tablet Given 07/05/2022 8:13 PM [employer]OTOZOOLOG[employer] TE[employer]ER 1 Tablet Given 07/04/2022 4:00 PM [employer]OTOZOOLOG[employer] TE[employer]ER 1 Tablet insulin aspart pump basal (NovoLOG) 100 unit/mL infusion subCUT, THREE TIMES DAILY, First dose on Mon06/29/22 at 2001, Until Discontinued, Routine, At rehab the patient must supply own pump insulin Acknowledged 07/08/2022 8:01 AM [employer]OTOZOOLOGY TE[employer]ER 1.7 Units/hr Abdomen, Left Upper Quadrant Acknowledged 07/08/2022 3:01 AM [employer]OTOZOOLOGY TE[employer]ER 5.1 Units/hr Abdomen, Left Lower Quadrant Acknowledged 07/07/2022 8:01 PM [employer]OTOZOOLOG[employer] TE[employer]ER 5.8 Units/hr Abdomen, Left Lower Quadrant insulin lispro (HumaLOG) variable dose injection subCUT, FOUR TIMES DAILY WITH MEALS AND AT BEDTIME, First dose on Mon06/29/22 at 1700, Until Discontinued, Routine Given 07/07/2022 5:00 PM [employer]OTOZOOLOGY TE[employer]ER 6.6 Units Abdom inal Tissue Given 07/03/2022 4:51 PM [employer]OTOZOOLOGY TE[employer]ER 7.2 Units Ab domen, Left Upper Quadrant Given 07/03/2022 12:16 PM PROTOZOOLOGY TE[employer]ER 10.35 Units Abdomen, Left Lower Quadrant isosorbide mononitrate (IMDUR) SR 24 hour tablet 30 mg 30 mg, Oral, DAILY, First dose (after last modification) on Mon06/30/22 at 0900, Until Discontinued Given 07/08/2022 7:30 AM PROTOZOOLOGY TEACHER 30 mg Given 07/07/2022 8:43 AM PROTOZOOLOGY TEACHER 30 mg Given 07/06/2022 7:34 AM PROTOZOOLOGY TEACHER 30 mg losartan (COZAAR) tablet 12.5 mg 12.5 mg, Oral, DAILY, First dose (after last modification) on Mon06/30/22 at 0900, Until Discontinued, On hold since Mon06/30/2022 at 1114 until manually unheld Given 06/30/2022 8:01 AM PROTOZOOLOGY TEACHER 12.5 mg melatonin tablet 6 mg 6 mg, Oral, DAILY AT BEDTIME, First dose on Mon06/29/22 at 2100, Until Discontinued, Routine Given 07/07/2022 9:41 PM PROTOZOOLOGY TEACHER 6 mg Given 07/06/2022 8:18 PM PROTOZOOLOGY TEACHER 6 mg Given 07/05/2022 8:14 PM PROTOZOOLOGY TEACHER 6 mg metoprolol tartrate (LOPRESSOR) tablet 12.5 mg 12.5 mg, Oral, TWO TIMES DAILY, First dose (after last modification) on Mon07/04/22 at 2100, Until Discontinued Given 07/08/2022 7:29 AM PROTOZOOLOGY TEACHER 12.5 mg Given 07/07/2022 9:45 PM PROTOZOOLOGY TEACHER 12.5 mg Given 07/07/2022 8:43 AM PROTOZOOLOGY TEACHER 12.5 mg metoprolol tartrate (LOPRESSOR) tablet 25 mg 25 mg, Oral, TWO TIMES DAILY, First dose (after last modification) on Mon06/29/22 at 2100, Until Discontinued Given 07/04/2022 8:26 AM PROTOZOOLOGY TEACHER 25 mg Given 07/03/2022 8:11 PM PROTOZOOLOGY TEACHER 25 mg Given 07/03/2022 7:47 AM PROTOZOOLOGY TEACHER 25 mg mineral oil-white petrolatum-ceresin (EUCERIN) topical cream Topical, DAILY, First dose on Mon07/05/22 at 1115, Until Discontinued, Routine Given 07/08/2022 7:36 AM PROTOZOOLOGY TEACHER Arm, Left Given 07/07/2022 9:00 AM PROTOZOOLOGY TEACHER Ab domen, Right Lower Quadrant Given 07/06/2022 12:34 PM PROTOZOOLOGY TEACHER A rm, Left New Admission Meds - retrieve upon admission 1. Remove admission medications for this patient from the Comp 1 [facility] machine on evening of admission 2. Acknowledge this order on the MAR (only after meds have been removed from [facility]), See Admin Instructions, EVERY 4 HOURS, 1 dose, First dose on Mon06/29/22 at 1600 Given 06/29/2022 4:00 PM PROTOZOOLOGY TEACHER Other (Comment) pantoprazole (PROTONIX) tablet 40 mg 40 mg, Oral, DAILY, First dose (after last modification) on Gregoria 06/30/22 at 0600, Until Discontinued Given 07/08/2022 5:59 AM PROTOZOOLOGY TEACHER 40 mg Given 07/07/2022 6:00 AM PROTOZOOLOGY TEACHER 40 mg Given 07/06/2022 7:08 AM PROTOZOOLOGY TEACHER 40 mg peg [id number]-kbweyzjg 1-0.2-0.2 % ophthalmic solution 1 Drop 1 Drop, Both Eyes, FOUR TIMES DAILY, First dose (after last modification) on Mon06/29/22 at 1800, Until Discontinued Given 07/08/2022 1:18 PM PROTOZOOLOGY TEACHER 1 Drop Given 07/08/2022 7:27 AM PROTOZOOLOGY TEACHER 1 Drop Given 07/07/2022 9:41 PM PROTOZOOLOGY TEACHER 1 Drop potassium chloride (KLOR-CON) SR tablet 20 mEq 20 mEq, Oral, DAILY WITH BREAKFAST, First dose on Mon07/03/22 at 0800, Until Discontinued, Routine Given 07/04/2022 8:26 AM PROTOZOOLOGY TEACHER 20 mEq Given 07/03/2022 7:46 AM PROTOZOOLOGY TEACHER 20 mEq potassium chloride (KLOR-CON) SR tablet 40 mEq 40 mEq, Oral, ONE TIME ONLY, 1 dose, On Mon07/01/22 at 1100, Routine Given 07/01/2022 11:00 AM PROTOZOOLOGY TEACHER 40 mEq potassium chloride (KLOR-CON) SR tablet 40 mEq 40 mEq, Oral, ONE TIME ONLY, 1 dose, On Mon07/02/22 at 2230, Routine Given 07/03/2022 5:33 AM PROTOZOOLOGY TEACHER 40 mEq ranolazine ER (RANEXA) SR 12 hour tablet 500 mg 500 mg, Oral, EVERY 12 HOURS (BlD), First dose on Mon06/29/22 at 2100, Until Discontinued, Routine Given 07/08/2022 7:30 AM PROTOZOOLOGY TEACHER 500 mg Given 07/07/2022 9:41 PM PROTOZOOLOGY TEACHER 500 mg Given 07/07/2022 9:00 AM PROTOZOOLOGY TEACHER 500 mg tiZANidine (ZANAFLEX) tablet 2 mg 2 mg, Oral, EVERY 8 HOURS, First dose on Gregoria 06/30/22 at 1300, Until Discontinued, Routine Given 07/02/2022 4:47 AM PROTOZOOLOGY TEACHER 2 mg Given 07/01/2022 9:09 PM PROTOZOOLOGY TEACHER 2 mg Given 07/01/2022 1:49 PM PROTOZOOLOGY TEACHER 2 mg tiZANidine (ZANAFLEX) tablet 2 mg 2 mg, Oral, EVERY 12 HOURS, First dose (after last modification) on Gregoria 07/07/22 at 1815, Until Discontinued, Routine Given 07/08/2022 5:59 AM PROTOZOOLOGY TEACHER 2 mg Given 07/07/2022 6:11 PM PROTOZOOLOGY TEACHER 2 mg tiZANidine (ZANAFLEX) tablet 4 mg 4 mg, Oral, EVERY 8 HOURS, First dose (after last modification) on [facility] 07/02/22 at 1300, Until Discontinued, Routine Given 07/07/2022 6:01 AM PROTOZOOLOGY TEACHER 4 mg Given 07/06/2022 8:21 PM PROTOZOOLOGY TEACHER 4 mg Given 07/06/2022 12:29 PM PROTOZOOLOGY TEACHER 4 mg documented in this encounter Active and Recently Administered Medications Times are shown in PROTOZOOLOGY TEACHER. Scheduled Medication Order 07/06/2022 07/07/2022 07/08/2022 aspirin [...] (Given - Provider: Shawn Silva, LUAN) peg 824-pscdvigvrlzy-cibqqt in 1-0.2-0.2 % ophthalmic solution 1 Drop [...] Provider: GODWIN Yang)214 (Given - Provider: Shawn Sivla, LUAN) 0727 (Given - Provider: Leonela Lantigua [...] Routine documented in this encounter Care Teams Thread Winder Automatic Relationship Specialty Start Date End Date Aditya Castro MD PCP - General Student in an Organized Health Care Education/Training Program 09/11/18 documented as of this encounter
--- OUTSIDE RECORDS SUMMARY | 2024-08-24 04:35 | XMS_ITS | Encounter Summary ---
Author Organization [facility] Address [address] [place] [address] Care Team Providers Care Industrial Waste Treatment Technician Name Role Phone Aditya Castro MD Primary Care Provider [phone] Reason for Visit * Reason Comments Follow Up 3 month Encounter Details Date Type Department Care Team (Late st Contact Info) Description 05/01/2019 10:00 AM CDT Office Visit [facility] Oncology and Hematology - [place] [address] [facility] [address] [place] [address] Fernando Schmid MD [address] [facility] [address] [place] [address] Anemia in stage 4 chronic [...] MD HEMATOLOGY ORDERABLE S Performing Organization Address City/[facility] Co de Phone Number EXTERNAL LAB * BASIC METABOLIC PANEL (05/15/2019) Blood Fernando Schmid MD CHEMISTRY ORDERABLES EXTERNAL LAB documented in this encounter Visit Diagnoses Diagnosis Anemia in stage 4 chronic kidney disease- Primary documented in this encounter Care Teams Industrial Waste Treatment Technician Relationship Specialty Start Date End Date Aditya Castro MD PCP - General Student in an Organized Health Care Education/Training Program 09/11/18 documented as of this encounter
--- OUTSIDE RECORDS SUMMARY | 2024-08-24 04:35 | XMS_ITS | Encounter Summary ---
Author Organization [facility] Address [address] [place] [address] Care Team Providers Care Licensed Staff Mft Name Role Phone Aditya Castro MD Primary Care Provider [phone] Encounter Details Date Type Department Care Team (Late st Contact Info) Description 10/23/2019 Orders Only [facility] Oncology and Hematology - [place] [address] [facility] [address] [place] [address] Fernando Schmid MD [address] [facility] [address] [place] [address] Anemia in stage 4 chronic [...] Blood Fernando Schmid MD CHEMISTRY ORDERABLES NON [facility] * CBC WITH DIFFERENTIAL (10/30/2019) Blood Fernando Schmid MD HEMATOLOGY ORDERABLE S Performing Organization Address [facility] Co de Phone Number NON [facility] documented in this encounter Visit Diagnoses Diagnosis Anemia in stage 4 chronic kidney disease Anemia of chronic renal failure, stage 4 (severe) documented in this encounter Care Teams Licensed Staff Mft Relationship Specialty Start Date End Date Aditya Castro MD PCP - General Student in an Organized Health Care Education/Training Program 09/11/18 documented as of this encounter
--- OUTSIDE RECORDS SUMMARY | 2024-08-24 04:35 | XMS_ITS | Encounter Summary ---
Author Organization [facility] [employer] [facility] Address [address] [place] [address] Care Team Providers Care Oil Spot Washer Name Role Phone Aditya Castro MD Primary Care Provider [phone] Encounter Details Date Type Department Care Team (Late st Contact Info) Description 05/15/2019 Orders Only [facility] Oncology and Hematology - [place] [address] [facility] [address] [place] [address] Fernando Schmid MD [address] [facility] [address] [place] [address] Anemia in stage 4 chronic [...] Associated Diagnosis Comments CBC WITH DIFFERENTIAL Stat 05/15/2019 Anemia in stage 4 chronic kidney disease BASIC METABOLIC PANEL Routine 05/15/2019 Anemia in stage 4 chronic kidney disease documented in this encounter Results * (ABNORMAL) CBC WITH DIFFERENTIAL (05/15/2019) Blood Fernando Schmid MD HEMATOLOGY ORDERABLE S NON [facility] * BASIC METABOLIC PANEL (05/15/2019) Blood Fernando Schmid MD CHEMISTRY ORDERABLES EXTERNAL LAB documented in this encounter Visit Diagnoses Diagnosis Anemia in stage 4 chronic kidney disease documented in this encounter Care Teams Oil Spot Washer Relationship Specialty Start Date End Date Aditya Castro MD PCP - General Student in an Organized Health Care Education/Training Program 09/11/18 documented as of this encounter
--- OUTSIDE RECORDS SUMMARY | 2024-08-24 04:35 | XMS_ITS | Encounter Summary ---
Author Organization [facility] [employer] [facility] Address [address] [place] [address] Care Team Providers Care Director Hris Name Role Phone Aditya Castro MD Primary Care Provider [phone] Encounter Details Date Type Department Care Team (Late st Contact Info) Description 10/18/2019 Orders Only [facility] Oncology and Hematology - [place] [address] [facility] [address] [place] [address] Fernando Schmid MD [address] [facility] [address] [place] [address] Anemia of chronic renal failure, [...] (severe) documented in this encounter Care Teams Director Hris Relationship Specialty Start Date End Date Aditya Castro MD PCP - General Student in an Organized Health Care Education/Training Program 09/11/18 documented as of this encounter
--- OUTSIDE RECORDS SUMMARY | 2024-08-24 04:35 | XMS_ITS | Encounter Summary ---
Author Organization [facility] Address [address] [place] [address] Care Team Providers Care Multicultural Services Librarian Name Role Phone Aditya Castro MD Primary Care Provider [phone] Encounter Details Date Type Department Care Team (Late st Contact Info) Description 07/12/2019 Orders Only [facility] Oncology and Hematology - [place] [address] [facility] [address] [place] [address] Fernando Schmid MD [address] [facility] [address] [place] [address] Anemia in stage 4 chronic [...] disease documented in this encounter Care Teams Multicultural Services Librarian Relationship Specialty Start Date End Date Aditya Castro MD PCP - General Student in an Organized Health Care Education/Training Program 09/11/18 documented as of this encounter
--- OUTSIDE RECORDS SUMMARY | 2024-08-24 04:35 | XMS_ITS | Encounter Summary ---
Author Organization [facility] Address [address] [place] [address] Care Team Providers Care Marketing Program Coordinator Name Role Phone Aditya Castro MD Primary Care Provider [phone] Encounter Details Date Type Department Care Team (Late st Contact Info) Description 07/23/2019 Orders Only [facility] Oncology and Hematology - [place] [address] [place] [address] [facility] 200 [place] [address] Fernando Schmid MD [address] [facility] [address] [place] [address] Anemia in stage 4 chronic [...] disease documented in this encounter Care Teams Marketing Program Coordinator Relationship Specialty Start Date End Date Aditya Castro MD PCP - General Student in an Organized Health Care Education/Training Program 09/11/18 documented as of this encounter
--- OUTSIDE RECORDS SUMMARY | 2024-08-24 04:35 | XMS_ITS | Encounter Summary ---
Author Organization [facility] Address [address] [place] [address] Care Team Providers Care Tunnel Drier Operator Name Role Phone Aditya Castro MD Primary Care Provider [phone] Encounter Details Date Type Department Care Team (Late st Contact Info) Description 05/29/2019 Orders Only [facility] Oncology and Hematology - [place] [address] [facility] [address] [place] [address] Fernando Schmid MD [address] [facility] [address] [place] [address] Anemia in stage 4 chronic [...] Fernando Schmid MD HEMATOLOGY ORDERABLE S NON [facility] documented in this encounter Visit Diagnoses Diagnosis Anemia in stage 4 chronic kidney disease documented in this encounter Care Teams Tunnel Drier Operator Relationship Specialty Start Date End Date Aditya Castro MD PCP - General Student in an Organized Health Care Education/Training Program 09/11/18 documented as of this encounter
--- OUTSIDE RECORDS SUMMARY | 2024-08-24 04:36 | XMS_ITS | Encounter Summary ---
Author Organization [facility] Address [address] [place] [address] Care Team Providers Care Associate Publisher Name Role Phone Jhonatan Bellamy MD Primary Care Provider [phone] Encounter Details Date Type Department Care Team (Late st Contact Info) Description 05/14/2018 Orders Only [facility] Oncology and Hematology - [place] [address] [phone] Tanna Costa RN Anemia of chronic renal [...] (severe) documented in this encounter Care Teams Associate Publisher Relationship Specialty Start Date End Date Jhonatan Bellamy MD [address] [place] [address] PCP - General Family Practice 06/05/17 09/10/18 documented as of this encounter
--- OUTSIDE RECORDS SUMMARY | 2024-08-24 04:36 | XMS_ITS | Encounter Summary ---
Author Organization [facility] Address [address] [place] [address] Care Team Providers Care Lambskin Trimmer Name Role Phone Jhonatan Bellamy MD Primary Care Provider [phone] Encounter Details Date Type Department Care Team (Late st Contact Info) Description 08/09/2017 Orders Only [facility] Oncology and Hematology - [place] [address] [facility] [address] [place] [address] Fernando Schmid MD [address] [facility] [address] [place] [address] Anemia of chronic renal failure, [...] (severe) documented in this encounter Care Teams Lambskin Trimmer Relationship Specialty Start Date End Date Jhonatan Bellamy MD [address] [place] [address] PCP - General Family Practice 06/05/17 09/10/18 documented as of this encounter
--- OUTSIDE RECORDS SUMMARY | 2024-08-24 04:36 | XMS_ITS | Encounter Summary ---
Author Organization [facility] Address [address] [place] [address] Care Team Providers Care Diaper Machine Tender Name Role Phone Jhonatan Bellamy MD Primary Care Provider [phone] Encounter Details Date Type Department Care Team (Late st Contact Info) Description 01/23/2018 Orders Only [facility] Oncology and Hematology - [place] [address] [address] Tanna Costa RN Social History [...] on filedocumented in this encounter Care Teams Diaper Machine Tender Relationship Specialty Start Date End Date Jhonatan Bellamy MD [address] [place] [address] PCP - General Family Practice 06/05/17 09/10/18 documented as of this encounter
--- OUTSIDE RECORDS SUMMARY | 2024-08-24 04:36 | XMS_ITS | Encounter Summary ---
Author Organization [facility] Address [address] [place] [address] Care Team Providers Care Civilian Jail Officer Name Role Phone Aditya Castro MD Primary Care Provider [phone] Reason for Visit * Reason Comments Follow Up * Eval and Treat (Routine) - Closed Specialty Diagnoses / Procedures Referred By Contjodi t Referred To Contact Oncology Diagnoses N18.4 Procedures Office Visit Level [id number] Aditya Castro MD [address] [place] [address] Fernando Schmid MD [address] [place] [address] Referral ID Status Reason Start Date Expiration Date Visits Re quested Visits Authorized [id number] Closed 01/29/2019 04/29/2019 1 6 Encounter Details Date Type Department Care Team (Late st Contact Info) Description 01/29/2019 10:15 AM CDT Office Visit [facility] Oncology and Hematology - [place] [address] [address] Fernando Schmid MD [address] [facility] [address] [place] [address] Anemia in stage 4 chronic [...] Schmid MD CHEMISTRY ORDERABLES Performing Organization Address City/[facility] Co de Phone Number EXTERNAL LAB * (ABNORMAL) CBC WITH DIFFERENTIAL (05/01/2019) Blood Fernando Schmid MD HEMATOLOGY ORDERABLE S EXTERNAL LAB documented in this encounter Visit Diagnoses Diagnosis Anemia in stage 4 chronic kidney disease- Primary documented in this encounter Care Teams Civilian Jail Officer Relationship Specialty Start Date End Date Aditya Castro MD PCP - General Student in an Organized Health Care Education/Training Program 09/11/18 documented as of this encounter
--- OUTSIDE RECORDS SUMMARY | 2024-08-24 04:36 | XMS_ITS | Encounter Summary ---
Author Organization [facility] Address [address] [place] [address] Care Team Providers Care Melt Room Operator Name Role Phone Jhonatan Bellamy MD Primary Care Provider [phone] Encounter Details Date Type Department Care Team (Late st Contact Info) Description 06/20/2018 Orders Only [facility] Oncology and Hematology - [place] [address] [facility] [address] [place] [address] Fernando Schmid MD [address] [facility] [address] [place] [address] Social History Tobacco Use Types [...] on filedocumented in this encounter Care Teams Melt Room Operator Relationship Specialty Start Date End Date Jhonatan Bellamy MD [address] [place] [address] PCP - General Family Practice 06/05/17 09/10/18 documented as of this encounter
--- OUTSIDE RECORDS SUMMARY | 2024-08-24 04:36 | XMS_ITS | Encounter Summary ---
Author Organization [facility] Address [address] [place] [address] Care Team Providers Care Tug Master Name Role Phone Jhonatan Bellamy MD Primary Care Provider [phone] Encounter Details Date Type Department Care Team (Late st Contact Info) Description 02/06/2018 Orders Only [facility] Oncology and Hematology - [place] [address] [phone] Tanna Costa RN Anemia of chronic renal [...] (severe) documented in this encounter Care Teams Tug Master Relationship Specialty Start Date End Date Jhonatan Bellamy MD [address] [place] [phone] PCP - General Family Practice 06/05/17 09/10/18 documented as of this encounter
--- OUTSIDE RECORDS SUMMARY | 2024-08-24 04:36 | XMS_ITS | Encounter Summary ---
Author Organization [facility] Address [address] [place] [address] Care Team Providers Care Hand Stamper Name Role Phone Jhonatan Bellamy MD Primary Care Provider [phone] Reason for Visit * Reason Onset Date Comments Medication Review 01/26/2018 low iron-pt to start Ferrous Sulfate 325 mg po bid per Dr. Schmid Encounter Details Date Type Department Care Team (Late st Contact Info) Description 01/26/2018 Telephone [facility] [address] [place] [address] , [facility] [address] [place] [address] [place] [address] [place] [address] [address] [place] [address] Medication Review (low iron-pt to start Ferrous Sulfate 325 mg po bid per Dr. Schmid) Social History Tobacco Use Types Packs/Day Years [...] Telephone Encounter - Tanna Costa RN - 01/26/2018 8:45 AM CDT Pt notified to start Ferrous sulfate 325 mg po bid per Dr. Schmid, pt states understanding. Tanna S Igor, RN documented in this encounter Plan of Treatment Not on file documented as of this encounter Visit Diagnoses Not on filedocumented in this encounter Care Teams Hand Stamper Relationship Specialty Start Date End Date Jhonatan Bellamy MD [address] [place] [address] PCP - General Family Practice 06/05/17 09/10/18 documented as of this encounter
--- OUTSIDE RECORDS SUMMARY | 2024-08-24 04:36 | XMS_ITS | Encounter Summary ---
Author Organization [facility] Address [address] [place] [address] Care Team Providers Care Mental Tester Name Role Phone Aditya Castro MD Primary Care Provider [phone] Encounter Details Date Type Department Care Team (Late st Contact Info) Description 10/19/2018 Orders Only [facility] Oncology and Hematology - [place] [address] [phone] Tanna Costa RN Anemia in stage 4 [...] disease documented in this encounter Care Teams Mental Tester Relationship Specialty Start Date End Date Aditya Castro MD PCP - General Student in an Organized Health Care Education/Training Program 09/11/18 documented as of this encounter
--- OUTSIDE RECORDS SUMMARY | 2024-08-24 04:36 | XMS_ITS | Encounter Summary ---
Author Organization [facility] Address [address] [place] [address] Care Team Providers Care Carpenter Supervisor Name Role Phone Jhonatan Bellamy MD Primary Care Provider [phone] Encounter Details Date Type Department Care Team (Late st Contact Info) Description 01/22/2018 Orders Only [facility] Oncology and Hematology - [place] [address] [address] Tanna Costa RN Social History [...] on filedocumented in this encounter Care Teams Carpenter Supervisor Relationship Specialty Start Date End Date Jhonatan Bellamy MD [address] [place] [address] PCP - General Family Practice 06/05/17 09/10/18 documented as of this encounter
--- OUTSIDE RECORDS SUMMARY | 2024-08-24 04:36 | XMS_ITS | Encounter Summary ---
Author Organization [facility] Address [address] [place] [address] Care Team Providers Care Catcher Filter Tip Name Role Phone Aditya Castro MD Primary Care Provider [phone] Encounter Details Date Type Department Care Team (Late st Contact Info) Description 12/05/2018 Orders Only [facility] Oncology and Hematology - [place] [address] [facility] [address] [place] [address] Fernando Schmid MD [address] [facility] [address] [place] [address] Anemia in stage 4 chronic [...] Fernando Schmid MD HEMATOLOGY ORDERABLE S NON [facility] documented in this encounter Visit Diagnoses Diagnosis Anemia in stage 4 chronic kidney disease documented in this encounter Care Teams Catcher Filter Tip Relationship Specialty Start Date End Date Aditya Castro MD PCP - General Student in an Organized Health Care Education/Training Program 09/11/18 documented as of this encounter
--- OUTSIDE RECORDS SUMMARY | 2024-08-24 04:36 | XMS_ITS | Encounter Summary ---
Author Organization [facility] Address [address] [place] [address] Care Team Providers Care Bottle Sorter Name Role Phone Jhonatan Bellamy MD Primary Care Provider Reason for Visit * Reason Onset Date Comments Medication Problem 01/22/2018 Encounter Details Date Type Department Care Team (Late st Contact Info) Description 01/22/2018 Telephone [facility] Oncology and Hematology - [place] [address] [facility] 200 [place] [address] Fernando Schmid MD [address] [facility] [address] [place] [address] Medication Problem Social History Tobacco [...] secondary insurance. I called Medicaid , [place] [phone], pt no longers had MEDCO and pt will have meridian as of 02/18/18. Tanna Costa, RN documented in this encounter Plan of Treatment Not on file documented as of this encounter Visit Diagnoses Not on filedocumented in this encounter Care Teams Bottle Sorter Relationship Specialty Start Date End Date Jhonatan Bellamy MD [address] [place] [address] PCP - General Family Practice 06/05/17 09/10/18 documented as of this encounter
--- OUTSIDE RECORDS SUMMARY | 2024-08-24 04:36 | XMS_ITS | Encounter Summary ---
Author Organization [facility] Address [address] [place] [address] Care Team Providers Care Regional Project Manager Name Role Phone Jhonatan Bellamy MD Primary Care Provider [phone] Encounter Details Date Type Department Care Team (Late st Contact Info) Description 06/05/2017 Orders Only [facility] Oncology and Hematology - [place] [address] [facility] 200 [place] [address] Fernando Schmid MD [address] [facility] [address] [place] [address] Social History Tobacco Use Types [...] on filedocumented in this encounter Care Teams Regional Project Manager Relationship Specialty Start Date End Date Jhonatan Bellamy MD [address] [place] [address] PCP - General Family Practice 06/05/17 09/10/18 documented as of this encounter
--- OUTSIDE RECORDS SUMMARY | 2024-08-24 04:36 | XMS_ITS | Encounter Summary ---
Author Organization [facility] Address [address] [place] [address] Care Team Providers Care Sheet Metal Welder Name Role Phone Jhonatan Bellamy MD Primary Care Provider [phone] Encounter Details Date Type Department Care Team (Late st Contact Info) Description 07/10/2017 Orders Only [facility] Oncology and Hematology - [place] [address] [facility] 200 [place] [address] Fernando Schmid MD 2[address] [facility] [address] [place] [address] Anemia of chronic renal failure, [...] Primary documented in this encounter Care Teams Sheet Metal Welder Relationship Specialty Start Date End Date Jhonatan Bellamy MD [address] [place] [address] PCP - General Family Practice 06/05/17 09/10/18 documented as of this encounter
--- OUTSIDE RECORDS SUMMARY | 2024-08-24 04:36 | XMS_ITS | Encounter Summary ---
Author Organization [facility] Address [address] [place] [address] Care Team Providers Care Customer Service Driver Name Role Phone Aditya Castro MD Primary Care Provider [phone] Encounter Details Date Type Department Care Team (Late st Contact Info) Description 01/30/2019 Orders Only [facility] Oncology and Hematology - [place] [address] [facility] 200 [place] [address] Fernando Schmid MD [address] [facility] [address] [place] [address] Anemia in stage 4 chronic [...] MD HEMATOLOGY ORDERABLE S NON [facility] documented in this encounter Visit Diagnoses Diagnosis Anemia in stage 4 chronic kidney disease documented in this encounter Care Teams Customer Service Driver Relationship Specialty Start Date End Date Aditya Castro MD PCP - General Student in an Organized Health Care Education/Training Program 09/11/18 documented as of this encounter
--- OUTSIDE RECORDS SUMMARY | 2024-08-24 04:36 | XMS_ITS | Encounter Summary ---
Author Organization [facility] Address [address] [place] [address] Care Team Providers Care Director Of Instrumental Music Name Role Phone Jhonatan Bellamy MD Primary Care Provider [phone] Encounter Details Date Type Department Care Team (Late st Contact Info) Description 09/04/[address] [facility] Oncology and Hematology - [place] [address] [address] Tanna Costa, RN History of [...] in this encounter Care Teams Director Of Instrumental Music Relationship Specialty Start Date End Date Jhonatan Bellamy MD [address] [place] [address] PCP - General Family Practice 06/05/17 09/10/18 documented as of this encounter
--- OUTSIDE RECORDS SUMMARY | 2024-08-24 04:36 | XMS_ITS | Encounter Summary ---
Author Organization [facility] Address [address] [place] [address] Care Team Providers Care Nail Expert Name Role Phone Jhonatan Bellamy MD Primary Care Provider [phone] Reason for Visit * Reason Comments Follow Up * Eval and Treat (Routine) - Closed Specialty Diagnoses / Procedures Referred By Contact Referred To Contact Hematology and Oncology / Oncology Diagnoses Anemia DVT (deep venous thrombosis) NEW CONSULT LOW BLOOD CT, BLOOD CLOT RT. KNEE Procedures OFFICE VISIT NEW PATIENT Finn Bellamy MD [address] [place] [address] Fernando Schmid MD [address] [place] [address] Referral ID Status Reason Start Date Expiration Date Visits Re quested Visits Authorized [id number] Closed 06/05/2017 07/06/2018 100 100 Encounter Details Date Type Department Care Team (Late st Contact Info) Description 06/05/2017 10:30 AM CDT Office Visit [facility] Oncology and Hematology - [place] [address] [facility] 200 [place] [address] Fernando Schmid MD [address] [place] [address] Anemia of chronic renal failure, [...] this with his primary care physician and senior maintenance technician. ? 06/05/2017 Fernando Schmid MD documented in this encounter Plan of Treatment Not on file documented as of this encounter Results * BASIC METABOLIC PANEL (07/11/2017) Blood Fernando Schmid MD CHEMISTRY ORDERABLES Performing Organization Address City/[facility]/ZIP Co de Phone Number EXTERNAL LAB * (ABNORMAL) CBC WITH DIFFERENTIAL (07/10/2017) Blood Fernando Schmid MD HEMATOLOGY ORDERABLE S Performing Organization Address City/State/[facility] Co de Phone Number EXTERNAL LAB documented in this encounter Visit Diagnoses Diagnosis Anemia of chronic renal failure, stage 4 (severe) documented in this encounter Care Teams Nail Expert Relationship Specialty Start Date End Date Jhonatan Bellamy MD [address] [facility] [place] [address] PCP - General Family Practice 06/05/17 09/10/18 documented as of this encounter
--- OUTSIDE RECORDS SUMMARY | 2024-08-24 04:36 | XMS_ITS | Encounter Summary ---
Author Organization [facility] Address [address] [place] [address] Care Team Providers Care Career Manager Name Role Phone Jhonatan Bellamy MD Primary Care Provider [phone] Reason for Visit * Reason Comments Follow Up Results * Eval and Treat (Routine) - Closed Specialty Diagnoses / Procedures Referred By Aguilar t Referred To Contact Diagnoses N18.4, D63.1 Procedures Office Visit Jhonatan Bellamy MD [address] [place] [address] Fernando Schmid MD [address] [place] [address] Referral ID Status Reason Start Date Expiration Date Visits Re quested Visits Authorized [id number] Closed 06/15/2018 09/13/2018 1 6 Encounter Details Date Type Department Care Team (Late st Contact Info) Description 07/17/2018 11:00 AM CRISIS MENTAL HEALTH THERAPIST Office Visit [facility] Oncology and Hematology - [place] [address] [facility] 200 [place] [address] Fernando Schmid MD [address] [place] [address] Anemia of chronic renal failure, [...] Comments Blood Pressure 162/75 07/17/2018 11:07 AM CRISIS MENTAL HEALTH THERAPIST Pulse 60 07/17/2018 11:07 AM CRISIS MENTAL HEALTH THERAPIST Temperature 36.7 ??C (98 ??F) 07/17/2018 11: 07 AM CRISIS MENTAL HEALTH THERAPIST Respiratory Rate - - Oxygen Saturation 96% 07/17/2018 11: 07 AM CRISIS MENTAL HEALTH THERAPIST Inhaled Oxygen Concentration - - Weight 120.1 kg (264 lb 11.2 oz) 2017 11:07 AM CRISIS MENTAL HEALTH THERAPIST Height 177.8 cm (5' 10 ) 07/17/2018 11: 07 AM CRISIS MENTAL HEALTH THERAPIST Body Mass Index 37.98 07/17/2018 11:07 AM CRISIS MENTAL HEALTH THERAPIST documented in this encounter Progress Notes [...] is on Plavix. 07/17/2018 Fernando Schmid MD IS MENTAL HEALTH THERAPIST documented in this encounter Plan of Treatment Not on file documented as of this encounter Visit Diagnoses Diagnosis Anemia of chronic renal failure, stage 4 (severe)- Primary Chronic deep vein thrombosis (DVT) of right lower extremity, unspecified vein documented in this encounter Care Teams Career Manager Relationship Specialty Start Date End Date Jhonatan Bellamy MD [address] [place] [address] PCP - General Family Practice 06/05/17 09/10/18 documented as of this encounter
--- OUTSIDE RECORDS SUMMARY | 2024-08-24 04:36 | XMS_ITS | Encounter Summary ---
Author Organization [facility] Address [address] [place] [address] Care Team Providers Care Fresh Work Inspector Name Role Phone Jhonatan Bellamy MD Primary Care Provider [phone] Reason for Visit * Reason Comments Follow Up Encounter Details Date Type Department Care Team (Late st Contact Info) Description 04/16/2018 1:00 PM CDT Office Visit [facility] Oncology and Hematology - [place] 2[address] [facility] 200 [place] [address] Fernando Schmid MD 2[address] [facility] [address] [place] [address] Anemia of chronic renal failure, [...] Primary documented in this encounter Care Teams Fresh Work Inspector Relationship Specialty Start Date End Date Jhonatan Bellamy MD [address] [place] [address] PCP - General Family Practice 06/05/17 09/10/18 documented as of this encounter
--- OUTSIDE RECORDS SUMMARY | 2024-08-24 04:36 | XMS_ITS | Encounter Summary ---
Author Organization [facility] Address [address] [place] [address] Care Team Providers Care Tester Electronic Scale Name Role Phone Jhonatan Bellamy MD Primary Care Provider [phone] Encounter Details Date Type Department Care Team (Late st Contact Info) Description 02/28/2018 Orders Only [facility] Oncology and Hematology - [place] [address] [phone] Tanna Costa, RN Anemia of chronic renal [...] Schmid MD CHEMISTRY ORDERABLES Performing Organization Address City/[facility] Co de Phone Number EXTERNAL LAB * (ABNORMAL) CBC WITH DIFFERENTIAL (02/28/2018) Blood Fernando Schmid MD HEMATOLOGY ORDERABLE S Performing Organization Address [facility] Co de Phone Number EXTERNAL LAB documented in this encounter Visit Diagnoses Diagnosis Anemia of chronic renal failure, stage 4 (severe) History of anemia due to chronic kidney disease documented in this encounter Care Teams Tester Electronic Scale Relationship Specialty Start Date End Date Jhonatan Bellamy MD [address] [facility] [place] [address] PCP - General Family Practice 06/05/17 09/10/18 documented as of this encounter
--- OUTSIDE RECORDS SUMMARY | 2024-08-24 04:36 | XMS_ITS | Encounter Summary ---
Author Organization [facility] Address [address] [place] [address] Care Team Providers Care Nursery Worker Name Role Phone Aditya Castro MD Primary Care Provider [phone] Encounter Details Date Type Department Care Team (Late st Contact Info) Description 02/08/2019 Orders Only [facility] Oncology and Hematology - [place] 2[address] [facility] 200 [place] [address] Fernando Schmid MD [address] [facility] [address] [place] [address] Anemia in stage 4 chronic [...] Fernando Schmid MD HEMATOLOGY ORDERABLE S NON [facility] documented in this encounter Visit Diagnoses Diagnosis Anemia in stage 4 chronic kidney disease documented in this encounter Care Teams Nursery Worker Relationship Specialty Start Date End Date Aditya Castro MD PCP - General Student in an Organized Health Care Education/Training Program 09/11/18 documented as of this encounter
--- OUTSIDE RECORDS SUMMARY | 2024-08-24 04:36 | XMS_ITS | Encounter Summary ---
Author Organization [facility] Address [address] [place] [address] Care Team Providers Care Net Software Architect Name Role Phone Jhonatan Bellamy MD Primary Care Provider [phone] Encounter Details Date Type Department Care Team (Late st Contact Info) Description 07/18/2018 Orders Only [facility] Oncology and Hematology - [place] [address] [facility] 200 [place] [address] Fernando Schimd MD [address] [facility] [address] [place] [address] Social History Tobacco Use Types [...] on filedocumented in this encounter Care Teams Net Software Architect Relationship Specialty Start Date End Date Jhonatan Bellamy MD [address] [place] [address] PCP - General Family Practice 06/05/17 09/10/18 documented as of this encounter
--- OUTSIDE RECORDS SUMMARY | 2024-08-24 04:36 | XMS_ITS | Encounter Summary ---
Author Organization [facility] Address [address] [place] [address] Care Team Providers Care Rating Clerk Name Role Phone Jhonatan Bellamy MD Primary Care Provider [phone] Encounter Details Date Type Department Care Team (Late st Contact Info) Description 08/24/2018 Orders Only [facility] Oncology and Hematology - [place] [address] [place] [phone] Tanna Costa RN Anemia in stage 4 [...] Fernando Schmid MD HEMATOLOGY ORDERABLE S NON [facility] documented in this encounter Visit Diagnoses Diagnosis Anemia in stage 4 chronic kidney disease documented in this encounter Care Teams Rating Clerk Relationship Specialty Start Date End Date Jhonatan Bellamy MD [address] [place] [address] PCP - General Family Practice 06/05/17 09/10/18 documented as of this encounter
--- OUTSIDE RECORDS SUMMARY | 2024-08-24 04:36 | XMS_ITS | Encounter Summary ---
Author Organization [facility] Address [address] [place] [address] Care Team Providers Care Casing Soaker Name Role Phone Jhonatan Bellamy MD Primary Care Provider [phone] Reason for Visit * Reason Comments Follow Up Encounter Details Date Type Department Care Team (Late st Contact Info) Description 01/18/2018 10:15 AM CDT Office Visit [facility] Oncology and Hematology - [place] [address] [facility] 200 [place] [address] Fernando Schmid MD [address] [facility] [address] [place] [address] Acute deep vein thrombosis (DVT) [...] Schmid MD CHEMISTRY ORDERABLES Performing Organization Address [facility] de Phone Number [facility] * IRON, TIBC, AND PERCENT SATURATION (02/28/2018) Blood Fernando Schmid MD CHEMISTRY ORDERABLES Performing Organization Address [facility] Co de Phone Number EXTERNAL LAB * (ABNORMAL) BASIC METABOLIC PANEL (01/19/2018) Blood Fernando Schmid MD CHEMISTRY ORDERABLES Performing Organization Address [facility] Co de Phone Number EXTERNAL LAB * (ABNORMAL) VITAMIN B12 AND FOLATE (01/18/2018) Blood Fernando Schmid MD CHEMISTRY ORDERABLES Performing Organization Address [facility] Co de Phone Number EXTERNAL LAB * (ABNORMAL) IRON, TIBC, AND PERCENT SATURATION (01/18/2018) Blood Fernando Schmid MD CHEMISTRY ORDERABLES Performing Organization Address [facility] Co de Phone Number EXTERNAL LAB * FERRITIN (01/18/2018) Blood Fernando Schmid MD CHEMISTRY ORDERABLES Performing Organization Address [facility] de Phone Number EXTERNAL LAB documented in this encounter Visit Diagnoses Diagnosis Acute deep vein thrombosis (DVT) of distal end of right lower extremity- Primary History of anemia due to chronic kidney disease documented in this encounter Care Teams Casing Soaker Relationship Specialty Start Date End Date Jhonatan Bellamy MD [address] [place] [address] PCP - General Family Practice 06/05/17 09/10/18 documented as of this encounter
--- OUTSIDE RECORDS SUMMARY | 2024-08-24 04:36 | XMS_ITS | Encounter Summary ---
Author Organization [facility] Address [address] [place] [address] Care Team Providers Care Sole Splitter Name Role Phone Jhonatan Bellamy MD Primary Care Provider [phone] Encounter Details Date Type Department Care Team (Late st Contact Info) Description 01/22/[address] [facility] Oncology and Hematology - [place] [address] [address] Tanna Costa RN Social History [...] on filedocumented in this encounter Care Teams Sole Splitter Relationship Specialty Start Date End Date Jhonatan Bellamy MD [address] [place] [address] PCP - General Family Practice 06/05/17 09/10/18 documented as of this encounter
--- OUTSIDE RECORDS SUMMARY | 2024-08-24 04:36 | XMS_ITS | Encounter Summary ---
Author Organization [facility] Address [address] [place] [address] Care Team Providers Care Machine Adjuster Leader Name Role Phone Jhonatan Bellamy MD Primary Care Provider [phone] Encounter Details Date Type Department Care Team (Late st Contact Info) Description 02/20/2018 Orders Only [facility] Oncology and Hematology - [place] [address] [place] [address] Tanna Costa RN Anemia of chronic [...] (severe) documented in this encounter Care Teams Machine Adjuster Leader Relationship Specialty Start Date End Date Jhonatan Bellamy MD [address] [place] [address] PCP - General Family Practice 06/05/17 09/10/18 documented as of this encounter
--- OUTSIDE RECORDS SUMMARY | 2024-08-24 04:36 | XMS_ITS | Encounter Summary ---
Author Organization [facility] Address [address] [place] [address] Care Team Providers Care Facility Maintenance Helper Name Role Phone Jhonatan Bellamy MD Primary Care Provider [phone] Encounter Details Date Type Department Care Team (Late st Contact Info) Description 08/25/2017 Orders Only [facility] Oncology and Hematology - [place] [address] [facility] 200 [place] [address] Fernando Schmid MD [address] [facility] [address] [place] [address] History of anemia due to [...] disease documented in this encounter Care Teams Facility Maintenance Helper Relationship Specialty Start Date End Date Jhonatan Bellamy MD [address] [place] [address] PCP - General Family Practice 06/05/17 09/10/18 documented as of this encounter
--- OUTSIDE RECORDS SUMMARY | 2024-08-24 04:36 | XMS_ITS | Encounter Summary ---
Author Organization [facility] Address [address] [place] [address] Care Team Providers Care Pediatric Clinical Nurse Specialist Name Role Phone Jhonatan Bellamy MD Primary Care Provider [phone] Encounter Details Date Type Department Care Team (Late st Contact Info) Description 07/31/2018 Orders Only [facility] Oncology and Hematology - [place] 2[address] [email or web address] 200 [place] [address] Fernando Schmid MD [address] [facility] [address] [place] [address] Anemia in stage 4 chronic [...] MD HEMATOLOGY ORDERABLE S Performing Organization Address [facility]/ZIP Co de Phone Number NON [facility] * (ABNORMAL) CBC WITH DIFFERENTIAL (06/12/2019) Blood Fernando Schmid MD HEMATOLOGY ORDERABLE S NON [facility] * (ABNORMAL) CBC WITH DIFFERENTIAL (05/29/2019) Blood Fernando Schmid MD HEMATOLOGY ORDERABLE S Performing Organization Address [facility]/ZIP Co de Phone Number NON [facility] * (ABNORMAL) CBC WITH DIFFERENTIAL (05/15/2019) Blood Fernando Schmid MD HEMATOLOGY ORDERABLE S Performing Organization Address [facility]/ZIP Co de Phone Number NON [facility] * (ABNORMAL) CBC WITH DIFFERENTIAL (04/05/2019) Blood Fernando Schmid MD HEMATOLOGY ORDERABLE S Performing Organization Address [facility]/ZIP Co de Phone Number NON [facility] * (ABNORMAL) CBC WITH DIFFERENTIAL (03/20/2019) Blood Fernando Schmid MD HEMATOLOGY ORDERABLE S Performing Organization Address [facility]/State/ZIP Co de Phone Number NON [facility] [...] MD HEMATOLOGY ORDERABLE S Performing Organization Address [facility] Co de Phone Number NON [facility] documented in this encounter Visit Diagnoses Diagnosis Anemia in stage 4 chronic kidney disease- Primary documented in this encounter Care Teams Pediatric Clinical Nurse Specialist Relationship Specialty Start Date End Date Jhonatan Bellamy MD [address] [place] [address] [place] [address] PCP - General Family Practice 06/05/17 09/10/18 documented as of this encounter
--- OUTSIDE RECORDS SUMMARY | 2024-08-24 04:36 | XMS_ITS | Encounter Summary ---
Author Organization [facility] Address [address] [place] [address] Care Team Providers Care Extra Gang Supervisor Name Role Phone Jhonatan Bellamy MD Primary Care Provider [phone] Encounter Details Date Type Department Care Team (Late st Contact Info) Description 07/03/2017 Orders Only [facility] Oncology and Hematology - [place] [address] [phone] Tanna Costa, RN Anemia of chronic renal [...] (severe) documented in this encounter Care Teams Extra Gang Supervisor Relationship Specialty Start Date End Date Jhonatan Bellamy MD [address] [place] [address] PCP - General Family Practice 06/05/17 09/10/18 documented as of this encounter
--- OUTSIDE RECORDS SUMMARY | 2024-08-24 04:36 | XMS_ITS | Encounter Summary ---
Author Organization [facility] Address [address] [place] [address] Care Team Providers Care Property Man Name Role Phone Jhonatan Bellamy MD Primary Care Provider [phone] Reason for Visit * Reason Onset Date Comments Medication Review 07/03/2017 Encounter Details Date Type Department Care Team (Late st Contact Info) Description 07/03/2017 Telephone [facility]3] Oncology and Hematology - [place] [address] [facility] [address] [place] [address] Fernando Schmid MD [address] [facility] [address] [place] [address] Medication Review Social History Tobacco [...] scheduled ov next week. Tanna Costa RN KEN CLEANER documented in this encounter Plan of Treatment Not on file documented as of this encounter Visit Diagnoses Not on filedocumented in this encounter Care Teams Property Man Relationship Specialty Start Date End Date Jhonatan Bellamy MD [address] [place] [address] PCP - General Family Practice 06/05/17 09/10/18 documented as of this encounter
--- OUTSIDE RECORDS SUMMARY | 2024-08-24 04:36 | XMS_ITS | Encounter Summary ---
Author Organization [facility] Address [address] [place] [address] Care Team Providers Care Director Medical Science Name Role Phone Jhonatan Bellamy MD Primary Care Provider [phone] Reason for Referral * Outpatient Services (Routine) - Closed Specialty Diagnoses / Procedures Referred By Aguilar lora Referred To Contact Diagnoses Acute deep vein thrombosis (DVT) of distal end of right lower extremity Procedures US VENOUS DOPPLER LEG RIGHT Fernando Schmid MD [address] [place] [address] Referral ID Status Reason Start Date Expiration Date Visits Requested Visits Authorized [id number] Closed Ordering Department To Schedule 07/10/2017 08/10/2018 1 1 ONAL DEVELOPMENT COACH * Eval and Treat (Routine) - Closed Specialty Diagnoses / Procedures Referred By Aguilar lora Referred To Contact Pulmonology Diagnoses Sleep apnea in adult Fernando Schmid MD [address] [place] [address] Carla Hall MD [address] [facility] [address] [place] [address] Referral ID Status Reason Start Date Expiration Date V isits Requested Visits Authorized [id number] Closed CRS To Schedule (STL) 07/10/2017 07/10/2018 1 1 ONAL DEVELOPMENT COACH Reason for Visit * Reason Comments Follow Up Encounter Details Date Type Department Care Team (Late st Contact Info) Description 07/10/2017 1:00 PM PERSONAL DEVELOPMENT COACH Office Visit [facility] Oncology and Hematology - [place] [address] [facility] [address] [place] [address] Fernando Schmid MD [address] [facility] [address] [place] [address] History of anemia due to [...] Comments Blood Pressure 143/63 07/10/2017 1:05 PM PERSONAL DEVELOPMENT COACH Pulse 69 07/10/2017 1:05 PM PERSONAL DEVELOPMENT COACH Temperature 36.8 ??C (98.2 ??F) 07/10/2017 1:05 PM CS T Respiratory Rate 16 07/10/2017 1:05 PM PERSONAL DEVELOPMENT COACH Oxygen Saturation - - Inhaled Oxygen Concentration - - Weight 115.1 kg (253 lb 11.2 oz) 07/10/2017 1:05 PM PERSONAL DEVELOPMENT COACH Height 177.8 cm (5' 10 ) 07/10/2017 1:05 PM PERSONAL DEVELOPMENT COACH Body Mass Index 36.4 07/10/2017 1:05 PM PERSONAL DEVELOPMENT COACH documented in this encounter Progress Notes * [...] this with his primary care physician and reservoir engineering consultant. ? 07/10/2017 Fernando Schmid MD ONAL DEVELOPMENT COACH documented in this encounter Plan of Treatment [...] extremity documented in this encounter Care Teams Director Medical Science Relationship Specialty Start Date End Date Jhonatan Bellamy MD [address] [place] [address] PCP - General Family Practice 06/05/17 09/10/18 documented as of this encounter
--- OUTSIDE RECORDS SUMMARY | 2024-08-24 04:36 | XMS_ITS | Encounter Summary ---
Author Organization [facility] Address [address] [place] [address] Care Team Providers Care Miller Head Assistant Wet Process Name Role Phone Jhonatan Bellamy MD Primary Care Provider [phone] Encounter Details Date Type Department Care Team (Late st Contact Info) Description 08/16/2018 Orders Only [facility] Oncology and Hematology - [place] [address] [phone] Tanna Costa RN Anemia in stage 4 [...] (ABNORMAL) CBC WITH DIFFERENTIAL (08/16/2018) Blood Fernando Schmdi MD HEMATOLOGY ORDERABLE S NON [facility] documented in this encounter Visit Diagnoses Diagnosis Anemia in stage 4 chronic kidney disease documented in this encounter Care Teams Miller Head Assistant Wet Process Relationship Specialty Start Date End Date Jhonatan Bellamy MD [address] [place] [address] PCP - General Family Practice 06/05/17 09/10/18 documented as of this encounter
--- OUTSIDE RECORDS SUMMARY | 2024-08-24 04:36 | XMS_ITS | Encounter Summary ---
Author Organization [facility] Address [address] [place] [address] Care Team Providers Care Paste Maker Name Role Phone Jhonatan Bellamy MD Primary Care Provider [phone] Reason for Referral * Radiology Services (Routine) - Closed Specialty Diagnoses / Procedures Referred By Tonioac t Referred To Contact Diagnoses Chronic deep vein thrombosis (DVT) of right lower extremity, unspecified vein Procedures US VENOUS DOPPLER LEG RIGHT Fernando Schmid MD [email or web address] [place] [address] [address] Referral ID Status Reason Start Date Expiration Date Visits Requested Visits Authorized [id number] Closed Ordering Department To Schedule 06/15/2018 07/16/2019 1 1 Reason for Visit * Reason Comments Follow Up Results * Eval and Treat (Routine) - Closed Specialty Diagnoses / Procedures Referred By Contjodi t Referred To Contact Diagnoses N18.4, D63.1 Procedures Office Visit Jhonatan Bellamy MD [address] [place] [address] Fernando Schmid MD [email or web address] [place] [address] Referral ID Status Reason Start Date Expiration Date Visits Re quested Visits Authorized [id number] Closed 06/15/2018 09/13/2018 1 6 Encounter Details Date Type Department Care Team (Late st Contact Info) Description 06/15/2018 9:00 AM CDT Office Visit [facility] Oncology and Hematology - [place] [address] [facility] [address] [place] [address] Fernando Schmid MD [address] [facility] [address] [place] [address] Chronic deep vein thrombosis (DVT) [...] MD HEMATOLOGY ORDERABLE S Performing Organization Address City/[facility]/ZIP Co de Phone Number EXTERNAL LAB [...] Primary documented in this encounter Care Teams Paste Maker Relationship Specialty Start Date End Date Jhonatan Bellamy MD [address] [place] [address] PCP - General Family Practice 06/05/17 09/10/18 documented as of this encounter
--- OUTSIDE RECORDS SUMMARY | 2024-08-24 04:36 | XMS_ITS | Encounter Summary ---
Author Organization [facility] Address [address] [place] [address] Care Team Providers Care Press Hand Supervisor Name Role Phone Jhonatan Bellamy MD Primary Care Provider [phone] Encounter Details Date Type Department Care Team (Late st Contact Info) Description 04/04/2018 Orders Only [facility] Oncology and Hematology - [place] [address] [facility] [address] [place] [address] Fernando Schmid MD [address] [facility] [address] [place] [address] Anemia of chronic renal failure, [...] vein documented in this encounter Care Teams Press Hand Supervisor Relationship Specialty Start Date End Date Jhonatan Bellamy MD [address] [place] [place] [address] PCP - General Family Practice 06/05/17 09/10/18 documented as of this encounter
--- OUTSIDE RECORDS SUMMARY | 2024-08-24 04:36 | XMS_ITS | Encounter Summary ---
Author Organization [facility] Address [address] [place] [address] Care Team Providers Care Car Tracer Name Role Phone Aditya Castro MD Primary Care Provider [phone] Reason for Visit * Reason Comments Follow Up Results * Eval and Treat (Routine) - Closed Specialty Diagnoses / Procedures Referred By Aguilar lora Referred To Contact Oncology Diagnoses N18.4 Procedures Office Visit level 3-5 Aditya Castro MD [address] [place] [address] Fernando Schmid MD [address] [facility] [address] [place] [address] Referral ID Status Reason Start Date Expiration Date Visits Re quested Visits Authorized [id number] Closed 10/23/2018 01/23/2019 1 6 Encounter Details Date Type Department Care Team (Late st Contact Info) Description 10/23/2018 10:45 AM OPERATOR GROUND BASED AIR DEFENCE Office Visit [facility] Oncology and Hematology - [place] [address] [facility] [address] [place] [address] Fernando Schmid MD [address] [facility] [address] [place] [address] Anemia in stage 4 chronic [...] Comments Blood Pressure 165/69 10/23/2018 10:25 AM OPERATOR GROUND BASED AIR DEFENCE Pulse 69 10/23/2018 10:25 AM OPERATOR GROUND BASED AIR DEFENCE Temperature 36.9 ??C (98.4 ??F) 10/23/2018 1 0:25 AM OPERATOR GROUND BASED AIR DEFENCE Respiratory Rate 18 10/23/2018 10:2 5 AM OPERATOR GROUND BASED AIR DEFENCE Oxygen Saturation 96% 10/23/2018 10: 25 AM OPERATOR GROUND BASED AIR DEFENCE Inhaled Oxygen Concentration - - Weight 122.8 kg (270 lb 11.2 oz) 2018 10:25 AM OPERATOR GROUND BASED AIR DEFENCE Height 177.8 cm (5' 10 ) 10/23/2018 10: 25 AM OPERATOR GROUND BASED AIR DEFENCE Body Mass Index 38.84 10/23/2018 10:25 AM OPERATOR GROUND BASED AIR DEFENCE documented in this encounter Progress Notes * [...] by Dr. Reyes. 10/23/2018 Fernando Schmid MD ATOR GROUND BASED AIR DEFENCE documented in this encounter Plan of Treatment Not on file documented as of this encounter Results * BASIC METABOLIC PANEL (01/11/2019) Blood Fernando Schmid MD CHEMISTRY ORDERABLES Performing Organization Address City/[facility] [address]/[facility] Co de Phone Number EXTERNAL LAB * (ABNORMAL) CBC WITH DIFFERENTIAL (01/11/2019) Blood Fernando Schmid MD HEMATOLOGY ORDERABLE S Performing Organization Address City/[facility] [address]/[facility] Co de Phone Number EXTERNAL LAB documented in this encounter Visit Diagnoses Diagnosis Anemia in stage 4 chronic kidney disease- Primary documented in this encounter Care Teams Car Tracer Relationship Specialty Start Date End Date Aditya Castro MD PCP - General Student in an Organized Health Care Education/Training Program 09/11/18 documented as of this encounter
--- OUTSIDE RECORDS SUMMARY | 2024-08-24 04:36 | XMS_ITS | Encounter Summary ---
Author Organization [facility] Address [address] [place] [address] Care Team Providers Care Salesforce Specialist Name Role Phone Jhonatan Bellamy MD Primary Care Provider [phone] Encounter Details Date Type Department Care Team (Late st Contact Info) Description 06/15/2018 Orders Only [facility] Oncology and Hematology - [place] [address] [phone] Tanna Costa RN Anemia of chronic renal [...] (severe) documented in this encounter Care Teams Salesforce Specialist Relationship Specialty Start Date End Date Jhonatan Bellamy MD [address] [place] [address] PCP - General Family Practice 06/05/17 09/10/18 documented as of this encounter
--- OUTSIDE RECORDS SUMMARY | 2024-08-24 04:36 | XMS_ITS | Encounter Summary ---
Author Organization [facility] Address [address] [place] [address] Care Team Providers Care Replanting Machine Crew Name Role Phone Aditya Castro MD Primary Care Provider [phone] Encounter Details Date Type Department Care Team (Late st Contact Info) Description 01/23/2019 Orders Only [facility] Oncology and Hematology - [place] [address] [facility] [address] [place] [address] Fernando Schmid MD [address] [facility] [address] [place] [address] Anemia in stage 4 chronic [...] Schmid MD HEMATOLOGY ORDERABLE S NON [facility] documented in this encounter Visit Diagnoses Diagnosis Anemia in stage 4 chronic kidney disease documented in this encounter Care Teams Replanting Machine Crew Relationship Specialty Start Date End Date Aditya Castro MD PCP - General Student in an Organized Health Care Education/Training Program 09/11/18 documented as of this encounter
--- OUTSIDE RECORDS SUMMARY | 2024-08-24 04:36 | XMS_ITS | Encounter Summary ---
Author Organization [facility] Address [address] [place] [address] Care Team Providers Care Survey Data Technician Name Role Phone Aditya Castro MD Primary Care Provider [phone] Encounter Details Date Type Department Care Team (Late st Contact Info) Description 09/10/2018 Orders Only [facility] Oncology and Hematology - [place] [address] [facility] [address] [place] [address] Fernando Schmid MD [address] [facility] [address] [place] [address] Chronic deep vein thrombosis (DVT) [...] MD HEMATOLOGY ORDERABLE S Performing Organization Address City/[facility] Co de Phone Number EXTERNAL LAB * (ABNORMAL) BASIC METABOLIC PANEL (09/11/2018) Blood Fernando Schmid MD CHEMISTRY ORDERABLES Performing Organization Address City/[facility] Co de Phone Number EXTERNAL LAB * US VENOUS DOPPLER LEG RIGHT (09/10/2018) Anatomical Region Laterality Modality Lower Extremity Other Fernando Schmid MD US ORDERABLES documented in this encounter Visit Diagnoses Diagnosis Chronic deep vein thrombosis (DVT) of right lower extremity, unspecified vein documented in this encounter Care Teams Survey Data Technician Relationship Specialty Start Date End Date Aditya Castro MD PCP - General Student in an Organized Health Care Education/Training Program 09/11/18 documented as of this encounter
--- OUTSIDE RECORDS SUMMARY | 2024-08-24 04:36 | XMS_ITS | Encounter Summary ---
Author Organization [facility] Address [address] [place] [address] Care Team Providers Care Sleeve Setter Lockstitch Name Role Phone Jhonatan Bellamy MD Primary Care Provider [phone] Encounter Details Date Type Department Care Team (Late st Contact Info) Description 03/28/[address] [facility] Oncology and Hematology - [place] [address] [phone] Tanna Costa RN Anemia of chronic renal [...] (severe) documented in this encounter Care Teams Sleeve Setter Lockstitch Relationship Specialty Start Date End Date Jhonatan Bellamy MD [address] [place] [address] PCP - General Family Practice 06/05/17 09/10/18 documented as of this encounter
--- OUTSIDE RECORDS SUMMARY | 2024-08-24 04:36 | XMS_ITS | Encounter Summary ---
Author Organization [facility] Address [address] [place] [address] Care Team Providers Care Database Tester Name Role Phone Jhonatan Bellamy MD Primary Care Provider [phone] Encounter Details Date Type Department Care Team (Late st Contact Info) Description 07/24/2017 Orders Only [facility] Oncology and Hematology - [place] [address] [phone] Tanna Costa RN Anemia of chronic renal [...] (severe) documented in this encounter Care Teams Database Tester Relationship Specialty Start Date End Date Jhonatan Bellamy MD [address] [place] [address] PCP - General Family Practice 06/05/17 09/10/18 documented as of this encounter
--- OUTSIDE RECORDS SUMMARY | 2024-08-24 04:36 | XMS_ITS | Encounter Summary ---
Author Organization [facility] Address [address] [place] [address] Care Team Providers Care Ethylbenzene Converter Operator Name Role Phone Aditya Castro MD Primary Care Provider [phone] Encounter Details Date Type Department Care Team (Late st Contact Info) Description 11/21/2018 Orders Only [facility] Oncology and Hematology - [place] [address] [facility] [address] [place] [address] Fernando Schmid MD [address] [facility] [address] [place] [address] Anemia in stage 4 chronic [...] Fernando Schmid MD HEMATOLOGY ORDERABLE S NON [facility] documented in this encounter Visit Diagnoses Diagnosis Anemia in stage 4 chronic kidney disease documented in this encounter Care Teams Ethylbenzene Converter Operator Relationship Specialty Start Date End Date Aditya Castro MD PCP - General Student in an Organized Health Care Education/Training Program 09/11/18 documented as of this encounter
--- OUTSIDE RECORDS SUMMARY | 2024-08-24 04:36 | XMS_ITS | Encounter Summary ---
Author Organization [facility] Address [address] [place] [address] Care Team Providers Care Production Machine Shop Supervisor Name Role Phone Aditya Castro MD Primary Care Provider [phone] Reason for Visit * Reason Comments Medication Refill Encounter Details Date Type Department Care Team (Late st Contact Info) Description 09/08/2018 Refill [facility] Oncology and Hematology - [place] [address] [facility] [address] [place] [address] Fernando Schmid MD [address] [facility] [address] [place] [address] Social History Tobacco Use Types [...] on filedocumented in this encounter Care Teams Production Machine Shop Supervisor Relationship Specialty Start Date End Date Aditya Castro MD PCP - General Student in an Organized Health Care Education/Training Program 09/11/18 documented as of this encounter
--- OUTSIDE RECORDS SUMMARY | 2024-08-24 04:36 | XMS_ITS | Encounter Summary ---
Author Organization [facility] Address [address] [place] [address] Care Team Providers Care Wood Machinist Apprentice Name Role Phone Jhonatan Bellamy MD Primary Care Provider [phone] Reason for Visit * Reason Comments Medication Refill Encounter Details Date Type Department Care Team (Late st Contact Info) Description 07/16/2018 Refill [facility] Oncology and Hematology - [place] [address] [facility] [address] [place] [address] Fernando Schmid MD [address] [facility] [address] [place] [address] Social History Tobacco Use Types [...] filedocumented in this encounter Care Teams Wood Machinist Apprentice Relationship Specialty Start Date End Date Jhonatan Bellamy MD [address] [place] [address] PCP - General Family Practice 06/05/17 09/10/18 documented as of this encounter
--- OUTSIDE RECORDS SUMMARY | 2024-08-24 04:36 | XMS_ITS | Encounter Summary ---
Author Organization [facility] Address [address] [place] [address] Care Team Providers Care Break Off Worker Name Role Phone Jhonatan Bellamy MD Primary Care Provider [phone] Encounter Details Date Type Department Care Team (Late st Contact Info) Description 02/26/2018 Orders Only [facility] Oncology and Hematology - [place] [address] [address] Tanna Costa RN Social History [...] on filedocumented in this encounter Care Teams Break Off Worker Relationship Specialty Start Date End Date Jhonatan Bellamy MD [address] [place] [address] PCP - General Family Practice 06/05/17 09/10/18 documented as of this encounter
--- OUTSIDE RECORDS SUMMARY | 2024-08-24 04:36 | XMS_ITS | Encounter Summary ---
Author Organization [facility] Address [address] [place] [address] Care Team Providers Care Bed Maker Name Role Phone Aditya Castro MD Primary Care Provider [phone] Encounter Details Date Type Department Care Team (Late st Contact Info) Description 01/11/2019 Orders Only [facility] Oncology and Hematology - [place] [address] [facility] [address] [place] [address] Fernando Schmid MD [address] [facility] [address] [place] [address] Anemia in stage 4 chronic [...] MD HEMATOLOGY ORDERABLE S Performing Organization Address City/[facility] Co de Phone Number EXTERNAL LAB documented in this encounter Visit Diagnoses Diagnosis Anemia in stage 4 chronic kidney disease documented in this encounter Care Teams Bed Maker Relationship Specialty Start Date End Date Aditya Castro MD PCP - General Student in an Organized Health Care Education/Training Program 09/11/18 documented as of this encounter
--- OUTSIDE RECORDS SUMMARY | 2024-08-24 04:36 | XMS_ITS | Encounter Summary ---
Author Organization [facility] Address [address] [place] [address] Care Team Providers Care Implementation Manager Name Role Phone Jhonatan Bellamy MD Primary Care Provider [phone] Encounter Details Date Type Department Care Team (Late st Contact Info) Description 03/14/2018 Orders Only [facility] Oncology and Hematology - [place] [address] [phone] Tanna Costa RN Anemia of chronic renal [...] (severe) documented in this encounter Care Teams Implementation Manager Relationship Specialty Start Date End Date Jhonatan Bellamy MD [address] [place] [address] PCP - General Family Practice 06/05/17 09/10/18 documented as of this encounter
--- OUTSIDE RECORDS SUMMARY | 2024-08-24 04:36 | XMS_ITS | Encounter Summary ---
Author Organization [facility] Address [address] [place] [address] Care Team Providers Care Director Of Residence Life Name Role Phone Aditya Castro MD Primary Care Provider [phone] Encounter Details Date Type Department Care Team (Late st Contact Info) Description 03/07/2019 Orders Only [facility] Oncology and Hematology - [place] [address] [facility] [address] [place] [address] Fernando Schmid MD [address] [facility] [address] [place] [address] Anemia in stage 4 chronic [...] Fernando Schmid MD HEMATOLOGY ORDERABLE S NON [facility] documented in this encounter Visit Diagnoses Diagnosis Anemia in stage 4 chronic kidney disease documented in this encounter Care Teams Director Of Residence Life Relationship Specialty Start Date End Date Aditya Castro MD PCP - General Student in an Organized Health Care Education/Training Program 09/11/18 documented as of this encounter
--- OUTSIDE RECORDS SUMMARY | 2024-08-24 04:36 | XMS_ITS | Encounter Summary ---
Author Organization [facility] Address [address] [place] [address] Care Team Providers Care President Ergonomic Consulting Name Role Phone Jhonatan Bellamy MD Primary Care Provider [phone] Encounter Details Date Type Department Care Team (Late st Contact Info) Description 07/19/2018 Orders Only [facility] Oncology and Hematology - [place] [address] [address] Tanna Costa RN Social History [...] on filedocumented in this encounter Care Teams President Ergonomic Consulting Relationship Specialty Start Date End Date Jhonatan Bellamy MD [address] [place] [address] PCP - General Family Practice 06/05/17 09/10/18 documented as of this encounter
--- OUTSIDE RECORDS SUMMARY | 2024-08-24 04:36 | XMS_ITS | Encounter Summary ---
Author Organization [facility] Address [address] [place] [address] Care Team Providers Care Semiconductor Bonder Name Role Phone Jhonatan Bellamy MD Primary Care Provider [phone] Reason for Visit * Reason Comments Medication Refill Encounter Details Date Type Department Care Team (Late st Contact Info) Description 05/23/2018 Refill [facility] Oncology and Hematology - [place] [address] [facility] 200 [place] [address] Fernando Schmid MD [address] [facility] [address] [place] [address] Social History Tobacco Use Types [...] on filedocumented in this encounter Care Teams Semiconductor Bonder Relationship Specialty Start Date End Date Jhonatan Bellamy MD [address] [place] [address] PCP - General Family Practice 06/05/17 09/10/18 documented as of this encounter
--- OUTSIDE RECORDS SUMMARY | 2024-08-24 04:36 | XMS_ITS | Encounter Summary ---
Author Organization [facility] Address [address] [place] [address] Care Team Providers Care Stroboscope Operator Name Role Phone Jhonatan Bellamy MD Primary Care Provider [phone] Encounter Details Date Type Department Care Team (Late st Contact Info) Description 07/31/2018 Orders Only [facility] Oncology and Hematology - [place] [address] [place] [phone] Tanna Costa RN Anemia in stage 4 [...] Fernando Schmid MD HEMATOLOGY ORDERABLE S NON [facility] documented in this encounter Visit Diagnoses Diagnosis Anemia in stage 4 chronic kidney disease documented in this encounter Care Teams Stroboscope Operator Relationship Specialty Start Date End Date Jhonatan Bellamy MD [address] [place] [address] PCP - General Family Practice 06/05/17 09/10/18 documented as of this encounter
--- OUTSIDE RECORDS SUMMARY | 2024-08-24 04:36 | XMS_ITS | Encounter Summary ---
Author Organization [facility] Address [address] [place] [address] Care Team Providers Care Filler Sifter Helper Name Role Phone Jhonatan Bellamy MD Primary Care Provider [phone] Encounter Details Date Type Department Care Team (Late st Contact Info) Description 01/18/2018 Orders Only [facility] Oncology and Hematology - [place] [address] [phone] Tanna Costa RN Anemia of chronic renal [...] (severe) documented in this encounter Care Teams Filler Sifter Helper Relationship Specialty Start Date End Date Jhonatan Bellamy MD [address] [place] [address] PCP - General Family Practice 06/05/17 09/10/18 documented as of this encounter
--- OUTSIDE RECORDS SUMMARY | 2024-08-24 04:36 | XMS_ITS | Encounter Summary ---
Author Organization [facility] Address [address] [place] [address] Care Team Providers Care Assistant Professor Of Religion Name Role Phone Jhonatan Bellamy MD Primary Care Provider [phone] Reason for Visit * Reason Comments Medication Refill Encounter Details Date Type Department Care Team (Late st Contact Info) Description 08/14/2018 Refill [facility] Oncology and Hematology - [place] [address] [facility] 200 [place] [address] Fernando Schmid MD [address] [facility] [address] [place] [address] Social History Tobacco Use Types [...] this encounter Care Teams Assistant Professor Of Religion Relationship Specialty Start Date End Date Jhonatan Bellamy MD [address] [place] [address] PCP - General Family Practice 06/05/17 09/10/18 documented as of this encounter
--- OUTSIDE RECORDS SUMMARY | 2024-08-24 04:36 | XMS_ITS | Encounter Summary ---
Author Organization [facility] Address [address] [place] [address] Care Team Providers Care Swine Genetics Researcher Name Role Phone Aditya Castro MD Primary Care Provider [phone] Encounter Details Date Type Department Care Team (Late st Contact Info) Description 10/23/[address] [facility] Oncology and Hematology - [place] [address] [facility] 200 [place] [address] Fernando Schmid MD 2227 [facility] [address] [place] [address] Anemia of chronic renal failure, [...] Schmid MD CHEMISTRY ORDERABLES Performing Organization Address City/[facility] Co de Phone Number EXTERNAL LAB documented in this encounter Visit Diagnoses Diagnosis Anemia of chronic renal failure, stage 4 (severe)- Primary documented in this encounter Care Teams Swine Genetics Researcher Relationship Specialty Start Date End Date Aditya Castro MD PCP - General Student in an Organized Health Care Education/Training Program 09/11/18 documented as of this encounter
--- OUTSIDE RECORDS SUMMARY | 2024-08-24 04:36 | XMS_ITS | Encounter Summary ---
Author Organization [facility] Address [address] [place] [address] Care Team Providers Care Sales Relationship Manager Name Role Phone Jhonatan Bellamy MD Primary Care Provider [phone] Encounter Details Date Type Department Care Team (Late st Contact Info) Description 01/12/2018 Orders Only [facility] Oncology and Hematology - [place] [address] [facility] 200 [place] [address] Fernando Schmid MD [address] [facility] [address] [place] [address] Acute deep vein thrombosis (DVT) [...] extremity documented in this encounter Care Teams Sales Relationship Manager Relationship Specialty Start Date End Date Jhonatan Bellamy MD [address] [place] [address] PCP - General Family Practice 06/05/17 09/10/18 documented as of this encounter
--- OUTSIDE RECORDS SUMMARY | 2024-08-24 04:36 | XMS_ITS | Encounter Summary ---
Author Organization [facility] Address [address] [place] [address] Care Team Providers Care Director Television Name Role Phone Jhonatan Bellamy MD Primary Care Provider [phone] Reason for Referral * Outpatient Services (Routine) - Closed Specialty Diagnoses / Procedures Referred By Contjodi t Referred To Contact Diagnoses Anemia of chronic renal failure, stage 4 (severe) Chronic deep vein thrombosis (DVT) of right lower extremity, unspecified vein Procedures US VENOUS DOPPLER LEG RIGHT Fernando Schmid MD [address] [place] [address] [place] [address] [place] [address] Referral ID Status Reason Start Date Expiration Date Visits Requested Visits Authorized [id number] Closed Ordering Department To Schedule 02/28/2018 03/31/2019 1 1 Reason for Visit * Reason Comments Follow Up Labs Encounter Details Date Type Department Care Team (Late st Contact Info) Description 02/28/2018 1:30 PM CDT Office Visit [facility] Oncology and Hematology [facility] [address] [place] [address] Fernando Schmid MD [address] [place] [address] Anemia of chronic renal failure, [...] MD HEMATOLOGY ORDERABLE S Performing Organization Address City/[facility]/ZIP Co de Phone Number EXTERNAL LAB * BASIC METABOLIC PANEL (04/16/2018) Blood Fernando Schmid MD CHEMISTRY ORDERABLES Performing Organization Address City/[facility] Co de Phone Number EXTERNAL LAB * US VENOUS DOPPLER LEG RIGHT (04/04/2018) Anatomical Region Laterality Modality Lower Extremity Other Fernando Schmid MD US ORDERABLES documented in this encounter Visit Diagnoses Diagnosis Anemia of chronic renal failure, stage 4 (severe)- Primary Chronic deep vein thrombosis (DVT) of right lower extremity, unspecified vein documented in this encounter Care Teams Director Television Relationship Specialty Start Date End Date Jhonatan Bellamy MD [place] [address] PCP - General Family Practice 06/05/17 09/10/18 documented as of this encounter
--- OUTSIDE RECORDS SUMMARY | 2024-08-24 04:36 | XMS_ITS | Encounter Summary ---
Author Organization [facility] Address [address] [place] [address] Care Team Providers Care Access Services Librarian Name Role Phone Jhonatan Bellamy MD Primary Care Provider [phone] Encounter Details Date Type Department Care Team (Late st Contact Info) Description 04/30/2018 Orders Only [facility] Oncology and Hematology - [place] [address] [phone] Tanna Costa RN Anemia of chronic renal [...] (severe) documented in this encounter Care Teams Access Services Librarian Relationship Specialty Start Date End Date Jhonatan Bellamy MD [address] [place] [phone] PCP - General Family Practice 06/05/17 09/10/18 documented as of this encounter
--- OUTSIDE RECORDS SUMMARY | 2024-08-24 04:36 | XMS_ITS | Encounter Summary ---
Author Organization [facility] Address [address] [place] [address] Care Team Providers Care Parking Inspector Name Role Phone Jhonatan Bellamy MD Primary Care Provider [phone] Encounter Details Date Type Department Care Team (Late st Contact Info) Description 06/04/2018 Orders Only [facility] Oncology and Hematology - [place] [address] [phone] Tanna Costa RN Anemia of chronic renal [...] (severe) documented in this encounter Care Teams Parking Inspector Relationship Specialty Start Date End Date Jhonatan Bellamy MD [address] [place] [address] PCP - General Family Practice 06/05/17 09/10/18 documented as of this encounter
--- OUTSIDE RECORDS SUMMARY | 2024-08-24 04:36 | XMS_ITS | Encounter Summary ---
Author Organization [facility] Address [address] [place] [address] Care Team Providers Care Stem Mounter Name Role Phone Jhonatan Bellamy MD Primary Care Provider [phone] Reason for Visit * Reason Comments Medication Refill Encounter Details Date Type Department Care Team (Late st Contact Info) Description 06/22/2018 Refill [facility] Oncology and Hematology - [place] [address] [facility] 200 [place] [address] Fernando Schmid MD [address] [facility] [address] [place] [address] Social History Tobacco Use Types [...] on filedocumented in this encounter Care Teams Stem Mounter Relationship Specialty Start Date End Date Jhonatan Bellamy MD [address] [place] [address] PCP - General Family Practice 06/05/17 09/10/18 documented as of this encounter
--- OUTSIDE RECORDS SUMMARY | 2024-08-24 04:36 | XMS_ITS | Encounter Summary ---
Author Organization [facility] Address [address] [place] [address] Care Team Providers Care Scrap Drop Engineer Name Role Phone Aditya Castro MD Primary Care Provider [phone] Reason for Visit * Reason Comments Follow Up Results * Eval and Treat (Routine) - Closed Specialty Diagnoses / Procedures Referred By Aguilar t Referred To Contact Diagnoses N18.4, D63.1 Procedures Office Visit Jhonatan Bellamy MD [address] [place] [address] Fernando Schmid MD [address] [place] [address] Referral ID Status Reason Start Date Expiration Date Visits Re quested Visits Authorized [id number] Closed 06/15/2018 09/13/2018 1 6 Encounter Details Date Type Department Care Team (Late st Contact Info) Description 09/11/2018 9:45 AM BRUSH WASHER Office Visit [facility] Oncology and Hematology - [place] [address] [facility] 200 [place] [address] Fernando Schmid MD [address] [place] [address] Anemia in stage 4 chronic [...] Comments Blood Pressure 149/78 09/11/2018 9:47 AM BRUSH WASHER Pulse 64 09/11/2018 9:47 AM BRUSH WASHER Temperature 36.8 ??C (98.2 ??F) 09/11/2018 9:47 AM CS T Respiratory Rate - - Oxygen Saturation 96% 09/11/2018 9:47 AM BRUSH WASHER Inhaled Oxygen Concentration - - Weight 122.3 kg (269 lb 9.6 oz) 09/11/2018 9:47 AM BRUSH WASHER Height 177.8 cm (5' 10 ) 09/11/2018 9:47 AM BRUSH WASHER Body Mass Index 38.68 09/11/2018 9:47 AM BRUSH WASHER documented in this encounter Progress Notes * [...] is on Plavix. 09/11/2018 Fernando Schmid MD H WASHER documented in this encounter Plan of Treatment Not on file documented as of this encounter Results * (ABNORMAL) CBC WITH DIFFERENTIAL (10/23/2018) Blood Fernando Schmid MD HEMATOLOGY ORDERABLE S EXTERNAL LAB documented in this encounter Visit Diagnoses Diagnosis Anemia in stage 4 chronic kidney disease- Primary documented in this encounter Care Teams Scrap Drop Engineer Relationship Specialty Start Date End Date Aditya Castro MD PCP - General Student in an Organized Health Care Education/Training Program 09/11/18 documented as of this encounter
--- OUTSIDE RECORDS SUMMARY | 2024-08-24 04:36 | XMS_ITS | Encounter Summary ---
Author Organization [facility] Address [address] [place] [address] Care Team Providers Care Measurement Technician Name Role Phone Jhonatan Bellamy MD Primary Care Provider [phone] Encounter Details Date Type Department Care Team (Late st Contact Info) Description 04/16/2018 Orders Only [facility] Oncology and Hematology - [place] [address] [phone] Tanna Costa RN Anemia of chronic renal [...] (severe) documented in this encounter Care Teams Measurement Technician Relationship Specialty Start Date End Date Jhonatan Bellamy MD [address] [place] [address] PCP - General Family Practice 06/05/17 09/10/18 documented as of this encounter
--- OUTSIDE RECORDS SUMMARY | 2024-08-24 04:36 | XMS_ITS | Encounter Summary ---
Author Organization [facility] Address [address] [place] [address] Care Team Providers Care Pulper Tender Name Role Phone Aditya Castro MD Primary Care Provider [phone] Encounter Details Date Type Department Care Team (Late st Contact Info) Description 02/20/2019 Orders Only [facility] Oncology and Hematology - [place] 2[address] [facility] 200 [place] [address] Fernando Schmid MD [address] [facility] [address] [place] [address] Anemia in stage 4 chronic [...] disease documented in this encounter Care Teams Pulper Tender Relationship Specialty Start Date End Date Aditya Castro MD PCP - General Student in an Organized Health Care Education/Training Program 09/11/18 documented as of this encounter
--- OUTSIDE RECORDS SUMMARY | 2024-08-24 04:37 | XMS_ITS | Continuity of Care Document ---
Author Organization [facility] Address [address] [place] [address] [place] [address] Phone Care Team Providers Care Carpenter Repairer Name Role Phone Carlos Garcia Unavailable Unavailable Advance Directives Directive Yes / No Effective Date File Name No Information Encounters Encounter Description Practice Location Reason(s) For Visit Diagnoses Date Provider Providers Copied on Encounter [facility], [id number] [place] [address] [address], [place], [place], [id number], [place] tel:[phone] [facility] No Information Radha Gonzalez. [address] [place], [place], [facility], [place]. tel:[phone] Referring Provider: Yannick Remy, [facility] [address], [place], [place], [facility]. tel:[phone] Family History Family Member Type Diagnosis Age At Onset No Information Payers Payer name Insurance type Covered democrat ID Authoriza tion(s) Medicaid [facility] [id number] Social History Type Description Quantity Date Captured [...]
--- OUTSIDE RECORDS SUMMARY | 2024-08-24 04:37 | XMS_ITS | Clinical Summary ---
Author Organization [facility] Address [address] [place] [address] Care Team Providers Care Air Conditioning Mechanic Industrial Name Role Phone Aditya Castro MD Primary Care Provider [phone] Alondra Lambert RN Unavailable [phone] Shannon Brock MD, Hamlet P. Unavailable [phone] Leandro Reyes MD Unavailable [phone] Allergies Active Allergy Reactions Criticality Noted Date [...] PUMP: Continue Omnipod 5 insulin pump with [employer] G6 CGM at home settings: TIME BASAL [...] tablet (25 mcg total) by mouth early childhood special educator before breakfast 30 tablet 1 11/04/19 24 [...] mg SL tablet 12/28/19 18 Active peg 707-eufkgpapxuov-lt ycerin (ARTIFICAL TEARS) 1-0.2-0.2 % ophthalmic solution 1 drop 4 (four) times a day 07/07/20 22 Active potassium chloride ER 20 mEq CR tablet Active Active Problems Problem Noted Date Diagnosed Date End stage renal disease [place] 07/29/2024 Nonrheumatic aortic valve stenosis 11/22/2023 Status post aortic valve replacement 11/22/2023 Status post coronary artery bypass grafting 10/2023 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 ESRD (end stage renal disease) ([facility]) 022 Assessment & Plan (06/29/2022 10:12 AM DEVULCANIZER TENDER): - Renal consulted, s/p CRRT in the ICU now back on PD. Tolerated well and nephrology following - Trialysis catheter removed - Continue vitamins for renal bone mineral disease. Assessment & Plan (06/28/2022 3:29 PM DEVULCANIZER TENDER): - Renal consulted, s/p CRRT in the [...] 06/22/2022 Assessment & Plan (06/29/2022 10:12 AM DEVULCANIZER TENDER): C/b cardiogenic shock requiring impella in the setting of cath and AHRF 2/2 pulmonary edema, now resolved. TTE demonstrating recovered EF 65% with grade I diastolic dysfunction. - metop as above - continue low dose losartan 12.5mg daily, ok per nephro. Tolerating well - volume management per PD Assessment & Plan (06/28/2022 3:29 PM DEVULCANIZER TENDER): C/b cardiogenic shock requiring impella in the [...] 06/22/2022 Assessment & Plan (06/29/2022 10:12 AM DEVULCANIZER TENDER): Converted to NSR overnight on 06/24. CHADsVASc of 4 not on anticoagulation prior to admission. - cardiology consulted - recommended ongoing rate control - holding off on a/c with high risk for bleeding while on DAPT - reduced metop to 25mg BID in the setting of hypotension, HR 70s NSR Assessment & Plan (06/28/2022 3:30 PM DEVULCANIZER TENDER): Converted to NSR overnight on 06/24. CHADsVASc [...] NSTEMI (non-ST elevated myocardial infarction) ( [facility]) 06/22/2022 Assessment & Plan (06/29/2022 10:11 AM DEVULCANIZER TENDER): With recurrent chest pain post-cath. He has [...] today Assessment & Plan (06/28/2022 3:30 PM DEVULCANIZER TENDER): With recurrent chest pain post-cath. He has [...] 06/22/2022 Assessment & Plan (06/29/2022 10:11 AM DEVULCANIZER TENDER): Secondary to NSTEMI, s/p Impella since removed on 06/10. Resolved. Assessment & Plan (06/23/2022 4:55 PM CDT): Secondary to NSTEMI, s/p Impella since removed on 06/10. Resolved. Assessment & Plan (06/22/2022 8:22 PM CDT): -Secondary to NSTEMI, s/p Impella since removed on 06/10. 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) 05/23/2017 History of coronary artery stent placement 05/23 Macular ischemia 03/17/2017 Combined forms of age-related cataract 7 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 03/17/2017 Type 2 diabetes mellitus treated with insulin ([facility]) 03/25/2015 Overview (11/25/2016): Insulin treated Type II diabetes mellitus Chronic kidney disease, stage III (moderate) 12/2014 Overview (11/25/2016): Chronic kidney disease, stage 3 Benign essential hypertension 03/25/2015 Overview (11/25/2016): Benign essential HTN Hyperlipidemia 03/25/2015 Overview (11/25/2016): Hyperlipidemia Pain of finger 11/24/2014 Hypersomnia 11/22/2013 Chronic kidney disease 11/22/2013 Hypertension 01/18/2013 Type 1 diabetes mellitus 01/18/2013 Assessment & Plan (06/29/2022 10:12 AM DEVULCANIZER TENDER): A1c well controlled on admission. He uses [...] session Assessment & Plan (06/28/2022 3:28 PM DEVULCANIZER TENDER): A1c well controlled on admission. He uses [...] Type Department Care Team Description 08/06/2024 Documentation [facility] Transplant Kidney [address] [facility] [address] [phone] [place] [address] Alondra Lambert RN 07/30/2024 Telephone [facility]ney [address] [facility] [address] [phone] [place] [address] Alondra Lambert RN 07/29/2024 1:15 PM DEVULCANIZER TENDER Lab [facility] [address] [place] [address] End stage renal disease (CMS/HCC) (HCC); ESRD (end stage renal disease) (CMS/HCC) (HCC) 07/29/2024 1:00 PM DEVULCANIZER TENDER Office Visit [facility] [address] [facility] Advanced Medicine 5th [place] [address] [place] [address] Radha Bartholomew MD Pre-transplant evaluation for kidney transplant (Primary Dx); End stage renal disease (CMS/HCC) ([facility]); Status post coronary artery bypass grafting; Status post aortic valve replacement; Type 1 diabetes mellitus with chronic kidney disease on chronic dialysis ([facility]/HCC) (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) ([facility]) 07/29/2024 11:02 AM DEVULCANIZER TENDER - 07/29/2024 11:59 PM DEVULCANIZER TENDER Hospital Encounter [facility] Rehabil[facility]iation [facility] [address] [facility] Advanced Medicine [address] [place] [address] Discharge Disposition: Discharge to home or self care 07/29/2024 10:58 AM DEVULCANIZER TENDER - 07/29/2024 11:59 PM DEVULCANIZER TENDER Hospital Encounter [facility] [address] [place] [address] End stage renal disease ([facility]/HCC) ([facility]) Discharge Disposition: Discharge to home or self care 07/29/2024 10:55 AM DEVULCANIZER TENDER - 07/29/2024 11:59 PM DEVULCANIZER TENDER Hospital Encounter [facility] [address] [place] [address] End stage renal disease ([facility]/HCC) ([facility]) Discharge Disposition: Discharge to home or self care 07/29/2024 10:53 AM DEVULCANIZER TENDER - 07/29/2024 11:59 PM DEVULCANIZER TENDER Hospital Encounter [facility] [address] [place] [address] End stage renal disease (CMS/HCC) (HCC) Discharge Disposition: Discharge to home or self care 07/29/2024 9:00 AM DEVULCANIZER TENDER Social Work [facility] [address] [facility], 8th Floor, [place] [address] 07/29/2024 Telephone [facility]ney [address] [facility] [address] Mail[address] [phone] [place] [address] Alondra Lambert, RN 07/26/2024 Telephone [facility] [address] [facility] [id number] [place] [address] Elsie Cornejo 07/26/2024 Orders Only [facility] [address] [facility] [phone] [place] [address] Alondra Lambert, LUAN ESRD (end stage renal disease) (CMS/[facility]) ([facility]) (Primary Dx) 07/26/2024 Telephone [facility] [address] [facility] [phone] [place] [address] Alondra Lambert, RN 07/22/2024 Telephone [facility] [address] [facility] [phone] [place] [address] Chris Richard 06/28/2024 Telephone [facility] [address] [facility] [phone] [place] [address] Chris Richard 06/24/2024 Telephone [facility] [address] [facility] [phone] [place] [address] Chris Richard 06/11/2024 Orders Only [facility] [address] [place] [id number] Karen Barnes NP 06/06/2024 Documentation [facility] [address] [facility] [phone] [place] [address] Melany Kelly from Last 3 Months Immunizations [...] the past 12 months has th e Done., gas, oil, or water [facility] threatened to shut off services in your home? No 08/01/2024 Social Connection and Isolation Panel [NHANES] A nswer Date Recorded In a typical week, how many times do you talk on the phone with family, friends, or neighbors? Twice a week 08/01/2024 How often do you get together with friends or re latives? Once a week 08/01/2024 How often do you attend anabaptism or buddhism serv ices? Never 08/01/2024 Do you belong to any clubs o r organizations such as anabaptism groups, unions, fraternal or athletic groups, or [...] in a chcf (including now)? No 10/16/2023 Housing Stability Vital Sign Answer Rubens e Recorded In the last 12 months, was t here a time when you were not able to pay the mortgage or rent on time? No 08/01/2024 In the past 12 months, how m any times have you moved where you were living? 1 08/01/2024 At any time in the past 12 m [facility], were you homeless or living in a chcf (including now)? No 08/01/2024 Personal Safety Answer Date Recorded Have you ever been in or are you currently in a harmful physical or emotional relationship or is someone making you feel afraid or unsafe? 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 Male 3:42 AM DEVULCANIZER TENDER Gender Identity Not on file Sexual Orientation Not on file Obstetrics History Last Filed Vital Signs Vital Sign Reading Time Taken Comments Blood Pressure 122/75 07/29/2024 1:00 PM DEVULCANIZER TENDER Pulse 116 07/29/2024 1:00 PM DEVULCANIZER TENDER Temperature 36.8 ??C (98.2 ??F) 07/29/2024 1:00 PM CS T Respiratory Rate 16 12/01/2023 11:1 3 AM CDT Oxygen Saturation 96% 12/01/2023 11: 13 AM CDT Inhaled Oxygen Concentration - - Weight 121.2 kg (267 lb 1.6 oz) 07/29/2024 1:00 PM DEVULCANIZER TENDER Height 177.8 cm (5' 10 ) 07/29/2024 1:00 PM DEVULCANIZER TENDER Body Mass Index 38.32 07/29/2024 1:00 PM DEVULCANIZER TENDER Plan of Treatment Health Maintenance Due Date [...] 03/23/2017, 03/26/2015 Medical Devices Implanted Type Area Rn Observation Device Identifier Shelf Expiration Date Model / Serial / Lot Kyle Vascular Device Clsr Perclose Prostyle Sut-Mediatd Closure-Repair Sys 18089-31 - [id number] Implanted:Qty: 1 on 06/10/2022 by Champ Osborne MD PhD at [facility] Other - see comments Right: Femoral [employer] 01/19/2024 [id number] / / [id number] [employer] Mary Synergy Xd Monorail 2.5mm 48mm 144cm Delivery System 1 Access [id number] - [id number] Implanted:Qty: 1 on 06/07/2022 by Champ Osborne MD PhD at [facility] Stent [employer] Mary 10/27/2023 [id number] / / [id number] [employer] Mary Synergy Xd Monorail 3mm 24mm 144cm Delivery System 1 Access Port [id number] - [id number] Implanted:Qty: 1 on 06/07/2022 by Champ Osborne MD PhD at [facility] Stent [employer] Mary 07/28/2023 [id number] / / [id number] [employer] Mary Synergy Xd Monorail 2.5mm 12mm 144cm Delivery System 1 Access [id number] - [id number] Implanted:Qty: 1 on 06/07/2022 by Champ Osborne MD PhD at [facility] Stent [employer] Mary 05/03/2023 [id number] / [id number] / [id number] Daig Mary [id number] Device Closure Angio-Seal Vip Bondek-Plus Polyglyd L70 Cm Od6 Fr Odsec.035 In Vascular - [id number] Implanted:Qty: 1 on 01/21/2021 by Hamlet Ortega Jr., MD at [facility] Left: Groin [employer] Mary [id number] / / Kyle Vascular Device Clsr Perclose Prostyle Sut-Mediatd Closure-Repair Sys 74904-46 [id number] Implanted:Qty: 1 on 06/07/2022 by Champ Osborne MD PhD at [facility] [employer] 01/19/2024 [id number] / / [id number] Kyle V[employer] Device Clsr Perclose Prostyle Sut-Mediatd Closure-Repair Sys 18813-86 [id number] Implanted:Qty: 1 on 06/07/2022 by Champ Osborne MD PhD at [facility] Kyle Vascular 11/19/2023 [id number] / / [id number] Bard Access Systems Power-Trialysis 13fr 30cm 3 Lumen Kink Resistance Symmetric Tip [id number] - [id number] Implanted:Qty: 1 on 06/07/2022 by Champ Osborne MD PhD at [facility] Right: Jugular Ramirez [place] 07/20/2024 [id number] / / [id number] [employer] Impella Cp Percutaneous Left Ventricular Assist Device 2510-1161 - [id number] Implanted:Qty: 1 on 06/07/2022 by Champ Osborne MD PhD at [facility] Left: Ventricle [employer] [id number] / / Bard Access Systems Power-Trialysis 13fr 20cm 3 Lumen Short Term Dialysis Straight [id number] - [id number] Implanted:Qty: 1 on 06/18/2022 at [facility] Ramirez [place] 07/20/2024 [id number] / / [id number] Rl [employer] Inc Screw Bone Slf Drl Full Thread Locking 3.5x14mm Ti 100.035.14 - [id number] Implanted:Qty: 6 on 10/17/2023 by Lorne Mcnulty MD at [facility] N/A: Sternum [employer] Inc 100.035.1 4 / / Rl [employer] Inc Plate Bone Low Profile 6 Hole H Shape Sternum Ti 115.102.06 - [id number] Implanted:Qty: 2 on 10/17/2023 by Lorne Mcnulty MD at [facility] N/A: Sternum [employer] 115.102.0 6 / / Rl [employer] Plate Bone Low Profile 6 Hole O Shape Sternum Ti 115.104.06 - [id number] Implanted:Qty: 1 on 10/17/2023 by Lorne Mcnulty MD at [facility] N/A: Sternum [employer] 115.104.0 6 / / On-X Intrnl Valve Coronary Aortic Mechanical On X 25mm Onxane-25 - [id number] - [id number] Implanted:Qty: 1 on 10/17/2023 by Lorne Mcnulty MD at [facility] N/A: Heart On-X Intrnl 01/22/2028 ONXANE-25 / [id number] / Rl [employer] Inc Screw Bone Slf Drl Full Thread Locking 3.5x18mm Ti 100.035.18 - [id number] Implanted:Qty: 12 on 10/17/2023 by Lorne Mcnulty MD at [facility] N/A: Sternum [employer] Inc 100.035.1 8 / / Explanted Type Area Rn Observation Device Identifier Shelf Expiration Date Model / Serial / Lot Bard Peripheral Vascular Bard .25x.25in Orwell Thk1.65mm Square [employer] Ptfe [id number] - [id number] Explanted:Qty: 1 on 10/17/2023 by Lorne Mcnulty MD at [facility] N/A: Heart Bard Peripheral Vascular 05/18/2026 [id number] / / Procedures Procedure Name Priority Date/Time Associated Diagnosis Comments HLA SOLID ORGAN TYPING REPORT 08/02/2024 9:04 AM DEVULCANIZER TENDER SIX MINUTE WALK Routine 07/29/2024 2:46 PM DEVULCANIZER TENDER End stage renal disease (CMS/HCC) (HCC) CT ABDOMEN PELVIS WO CONTRAST Schedule Routine, Read Routine (OP Routine) 07/29/2024 12:43 PM DEVULCANIZER TENDER End stage renal disease (CMS/HCC) (HCC) XR ORTHOPANTOGRAM/PANOR EX Schedule Routine, Read Routine (OP Routine) 07/29/2024 11:44 AM DEVULCANIZER TENDER End stage renal disease (CMS/HCC) (HCC) TYPE AND SCREEN Routine 07/29/2024 11:23 AM DEVULCANIZER TENDER End stage renal disease (CMS/HCC) (HCC) ECG 12-LEAD Routine 07/29/2024 11:14 AM DEVULCANIZER TENDER End stage renal disease (CMS/HCC) (HCC) ABO/RH Routine 07/29/2024 11:13 AM DEVULCANIZER TENDER EGFR Routine 07/29/2024 11:01 AM DEVULCANIZER TENDER End stage renal disease (CMS/HCC) (HCC) DIFFERENTIAL AUTO Routine 07/29/2024 11: 01 AM DEVULCANIZER TENDER End stage renal disease (CMS/HCC) (HCC) CBC WITH AUTO DIFFERENTIAL Routine 07/29/2024 11:01 AM DEVULCANIZER TENDER End stage renal disease (CMS/HCC) (HCC) COMPREHENSIVE METABOLIC PANEL Routine 07/29/2024 11:01 AM DEVULCANIZER TENDER End stage renal disease (CMS/HCC) (HCC) CREATININE, URINE, RANDOM Routine 07/29/2024 11:01 AM DEVULCANIZER TENDER End stage renal disease (CMS/HCC) (HCC) FERRITIN Routine 07/29/2024 11:01 AM DEVULCANIZER TENDER End stage renal disease (CMS/HCC) (HCC) GAMMA GT Routine 07/29/2024 11:01 AM DEVULCANIZER TENDER End stage renal disease (CMS/HCC) (HCC) HEMOGLOBIN A1C Routine 07/29/2024 11:01 AM DEVULCANIZER TENDER End stage renal disease (CMS/HCC) (HCC) IRON PROFILE W/ IBC Routine 07/29/2024 1 1:01 AM DEVULCANIZER TENDER End stage renal disease (CMS/HCC) (HCC) LIPID PANEL Routine 07/29/2024 11:01 AM DEVULCANIZER TENDER End stage renal disease (CMS/HCC) (HCC) PTH Routine 07/29/2024 11:01 AM DEVULCANIZER TENDER End stage renal disease (CMS/HCC) (HCC) APTT Routine 07/29/2024 11:01 AM DEVULCANIZER TENDER End stage renal disease (CMS/HCC) (HCC) PHOSPHORUS Routine 07/29/2024 11:01 AM DEVULCANIZER TENDER End stage renal disease (CMS/HCC) (HCC) PROTEIN, URINE, RANDOM Routine 07/29/2024 11:01 AM DEVULCANIZER TENDER End stage renal disease (CMS/HCC) (HCC) PROTIME-INR Routine 07/29/2024 11:01 AM DEVULCANIZER TENDER End stage renal disease (CMS/HCC) (HCC) URIC ACID Routine 07/29/2024 11:01 AM DEVULCANIZER TENDER End stage renal disease (CMS/HCC) (HCC) PSA SCREEN Routine 07/29/2024 11:01 AM DEVULCANIZER TENDER End stage renal disease (CMS/HCC) (HCC) LR HLA TYPING (CLASS I AND CLASS II) Routine 07/29/2024 11:01 AM DEVULCANIZER TENDER End stage renal disease (CMS/HCC) (HCC) HLA CLASS I DNA (ABC) RECIPIENT Routine 07/29/2024 11:01 AM DEVULCANIZER TENDER End stage renal disease (CMS/HCC) (HCC) HLA CLASS II DNA (DR, DQ, DP) RECIPIENT Routine 07/29/2024 11:01 AM DEVULCANIZER TENDER End stage renal disease (CMS/HCC) (HCC) HLA ANTIBODY SCREEN - SAB (CLASS I AND CLASS II) Routine 07/29/2024 11:01 AM DEVULCANIZER TENDER End stage renal disease (CMS/HCC) (HCC) HLA ANTIBODY SCREEN BY SINGLE ANTIGEN Routine 07/29/2024 11:01 AM DEVULCANIZER TENDER End stage renal disease (CMS/HCC) (HCC) CMV, IGG Routine 07/29/2024 11:01 AM DEVULCANIZER TENDER End stage renal disease (CMS/HCC) (HCC) MADIHA-MORRIS VIRUS VCA ANTIBODY PANEL Routine 07/29/2024 11:01 AM DEVULCANIZER TENDER End stage renal disease (CMS/HCC) (HCC) HIV 1/2 ANTIBODY PLUS P24 ANTIGEN Routine 07/29/2024 11:01 AM DEVULCANIZER TENDER End stage renal disease (CMS/HCC) (HCC) HSV 1 ANTIBODY, IGG Routine 07/29/2024 1 1:01 AM DEVULCANIZER TENDER End stage renal disease (CMS/HCC) (HCC) HSV 2 ANTIBODY, IGG Routine 07/29/2024 1 1:01 AM DEVULCANIZER TENDER End stage renal disease (CMS/HCC) (HCC) HEPATITIS B CORE ANTIBODY, TOTAL Routine 07/29/2024 11:01 AM DEVULCANIZER TENDER End stage renal disease (CMS/HCC) (HCC) HEPATITIS B SURFACE ANTIBODY (IMMUNE STATUS) Routine 07/29/2024 11:01 AM DEVULCANIZER TENDER End stage renal disease (CMS/HCC) (HCC) HEPATITIS B SURFACE ANTIGEN Routine 07/29/2024 11:01 AM DEVULCANIZER TENDER End stage renal disease (CMS/HCC) (HCC) HEPATITIS C ANTIBODY Routine 07/29/2024 11:01 AM DEVULCANIZER TENDER End stage renal disease (CMS/HCC) (HCC) RPR Routine 07/29/2024 11:01 AM DEVULCANIZER TENDER End stage renal disease (CMS/HCC) (HCC) VARICELLA ZOSTER ANTIBODY, IGG Routine 07/29/2024 11:01 AM DEVULCANIZER TENDER End stage renal disease (CMS/HCC) (HCC) URINALYSIS, MICROSCOPIC ONLY Routine 07/29/2024 10:53 AM DEVULCANIZER TENDER End stage renal disease (CMS/HCC) (HCC) OXALATE Routine 07/29/2024 10:53 AM DEVULCANIZER TENDER ESRD (end stage renal disease) (CMS/HCC) (HCC) URINALYSIS AND REFLEX TO MICROSCOPIC Routine 07/29/2024 10:53 AM DEVULCANIZER TENDER End stage renal disease (CMS/HCC) (HCC) CARDIOLOGY DOCUMENT SCAN Routine 06/07/2024 11:10 AM CDT TSH Routine 10/27/2023 2:30 AM DEVULCANIZER TENDER from Last 3 Months or Most Recently Relevant to Health Maintenance Results * HLA Solid Organ Typing Report (08/02/2024 9:04 AM DEVULCANIZER TENDER) Jossie King MD LAB GENETIC TESTIN G Final Result * Six Minute Walk - (07/29/2024 2:46 PM DEVULCANIZER TENDER) Anatomical Region Laterality Modality PFT Narrative 07/29/2024 3:52 PM DEVULCANIZER TENDER Table formatting from the original result was not included. Davey Pickard V., GAS LOAD DISPATCHER on 07/29/2024 ??2:45 PM Table formatting from the original note was not included. 6 MINUTE WALK RESULTS Name: Juvenal Daigle Jr : 1970 DOS: 07/29/2024 Diagnosis: ESRD/KTE GAS LOAD DISPATCHER performed walk: Carmenza Pickard Rest: 1 min [...] Abdomen Pelvis WO Contrast (07/29/2024 12:43 PM DEVULCANIZER TENDER) Anatomical Region Laterality Modality Body N/A Computed Tomogra phy 07/29/2024 1:04 PM DEVULCANIZER TENDER Impressions 07/29/2024 1:04 PM DEVULCANIZER TENDER 1. ??Moderate discontinuous atherosclerotic calcifications involve the [...] Teresa Rivera M.D. 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 Electronically signed by: Julio Pinedo M.D. Narrative 07/29/2024 12:59 PM DEVULCANIZER TENDER EXAMINATION: XR ORTHOPANTOGRAM/PANOREX HISTORY: Kidney Transplant Evaluation [...] * Type and screen (07/29/2024 11:23 AM DEVULCANIZER TENDER) Pathologist [facility] Maribel, indirect Negative ABO Rh A Positive [facility] Blood 07/29/2024 11:2 3 AM DEVULCANIZER TENDER 07/29/2024 11:43 AM DEVULCANIZER TENDER Narrative [facility] - 07/29/2024 12:45 PM DEVULCANIZER TENDER Please draw the ABO and the Type and Screen as two separate blood draws with each stamped with the two different times stamps as this is a regulatory requirement for this patient to be listed for Kidney Transplant. ??This lab is being obtained as part of a Kidney transplant evaluation, is time sensitive, and should only be drawn during the evaluation visit at [facility] 3C Lab. Has the patient had Daratumumab or Isatuximab in the past 6 months?->Unknown Jossie King MD LAB BLOOD BANK ERNESTO T ORDERABLES Final Result [facility] [place] [address] * ECG 12 lead (07/29/2024 11:14 AM DEVULCANIZER TENDER) Ventricular Rate EKG/Min 117 BPM [facility] Atrial Rate 117 BPM [facility] OR-Interval (MSEC) 144 ms [facility] QRS-Interval (MSEC) 126 ms [facility] QT-Interval (MSEC) 366 ms [facility] QTc 510 ms [facility] R Renick -40 degrees [facility] T Renick 147 degrees [facility] Diagnosis Poor data quality, interpretation may [...] SAL M.D ([id number]) on 07/29/2024 3:38:41 PM [facility] 07/29/2024 11:1 4 AM DEVULCANIZER TENDER 07/29/2024 3:38 PM DEVULCANIZER TENDER Jossie King MD ECG ORDERABLES Fi nal Result Performing Organization Address City/[facility] Co de Phone Number [facility] * ABO/Rh (07/29/2024 11:13 AM DEVULCANIZER TENDER) ABO Rh A Positive Blood 07/29/2024 11:1 3 AM DEVULCANIZER TENDER 07/29/2024 2:45 PM DEVULCANIZER TENDER Jossie King MD LAB BLOOD BANK ERNESTO T ORDERABLES Final Result Performing Organization Address City/[facility] Co de Phone Number [facility] [place] [address] * LR HLA Typing (Class I and Class II) (07/29/2024 11:01 AM DEVULCANIZER TENDER) r-SSO HISTOTRAC A First Allele A*03 HISTOTRAC [...] 07/30/24 HISTOT[facility]AC Blood 07/29/2024 11:0 1 AM DEVULCANIZER TENDER 08/02/2024 9:03 AM DEVULCANIZER TENDER Narrative [facility]AC - 08/02/2024 9:03 AM [facility] DNA was extracted from whole blood or buccal cell specimens, and relevant genomic regions were amplified by polymerase chain reactions (PCR). HLA typing was performed on PCR amplicons using reverse sequence-specific oligonucleotide (r-SSO) and/or sequence-specific primers (SSP) based techniques. r-SSO and SSP are FDA approved as IVD tests and validated by the [facility] HLA Laboratory. Testing performed at the [facility], [address] [place] [place] [address], 5th floor, [place], [address]. [facility] # [id number]. Dorothy Meade, Ph.D., Furnace Charging Machine Operator, HLA Laboratory Rell Samuels M.D., Ph.D., [employer]lass Container Winding Operator, HLA Laboratory Licha Nieto, Ph.D., CLIA [employer] Container Winding Operator, [facility] Current methodology comment last revised on 04/25/17. Jossie King MD LAB BLOOD ORDERABL ES Final Result [facility] * Collection Task for HLA Typing 1 (07/29/2024 11:01 AM DEVULCANIZER TENDER) HLA Class I DNA (ABC) Recipient Received Blood 07/29/2024 11:0 1 AM DEVULCANIZER TENDER 07/29/2024 11:56 AM DEVULCANIZER TENDER Jossie King MD LAB BLOOD ORDERABL ES Final Result Performing Organization Address [facility] Co de Phone Number [facility] Department [place] [address] * Collection Task for HLA Antibody Screen (07/29/2024 11:01 AM DEVULCANIZER TENDER) HLA Antibody Screen By Single Antigen Received Blood 07/29/2024 11:0 1 AM DEVULCANIZER TENDER 07/29/2024 11:56 AM DEVULCANIZER TENDER Jossie King MD LAB BLOOD ORDERABL ES Final Result Performing Organization Address [facility] de Phone Number [facility] Department of [employer] [place] [address] * Collection Task for HLA Typing 2, Patient (07/29/2024 11:01 AM DEVULCANIZER TENDER) HLA Class II DNA (DR, DQ, DP) Recipient Received Blood 07/29/2024 11:0 1 AM DEVULCANIZER TENDER 07/29/2024 11:56 AM DEVULCANIZER TENDER Jossie King MD LAB BLOOD ORDERABL ES Final Result Performing Organization Address City/[facility] Co de Phone Number [facility] Department [place] [address] * (ABNORMAL) eGFR (07/29/2024 11:01 AM DEVULCANIZER TENDER) eGFR 7(L) >=60 mL/min/1. 73 m2 Comment: [...] reviewed 2021. Blood 07/29/2024 11:0 1 AM DEVULCANIZER TENDER 07/29/2024 11:33 AM DEVULCANIZER TENDER us Jossie King MD LAB BLOOD ORDERABL ES Final Result [facility] Department of Laboratories [place], [place] [id number] * Differential, auto (07/29/2024 11:01 AM DEVULCANIZER TENDER) Neutrophil abs 3.1 1.5 - 6.5 K/cumm Imm gran abs 0.0 0.0 - 0.1 K/cumm [facility] Lymphocyte abs 1.1 0.8 - 3.3 K/cumm [facility] Monocyte abs 0.7 0.2 - 0.8 K/cumm [facility] Eosinophil abs 0.2 0.0 - 0.5 K/cumm [facility] Basophil abs 0.0 0.0 - 0.1 K/cumm [facility] Neutrophil pct 60.3 % [facility] Comment: Interpretive Data Percent cell count reference ranges are not reported, since discordance with absolute values may lead to misinterpretation of CBC data. Current Interpretive Data was last revised on 2017. Imm gran pct 0.6 % [facility] Comment: Interpretive Data Percent cell count reference ranges are not reported, since discordance with absolute values may lead to misinterpretation of CBC data. Current Interpretive Data was last revised on 2017. Lymphocyte pct 21.4 % [facility] Comment: Interpretive Data Percent cell count reference ranges are not reported, since discordance with absolute values may lead to misinterpretation of CBC data. Current Interpretive Data was last revised on 2017. Monocyte pct 13.7 % [facility] Comment: Interpretive Data Percent cell count reference ranges are not reported, since discordance with absolute values may lead to misinterpretation of CBC data. Current Interpretive Data was last revised on 2017. Eosinophil pct 3.2 % [facility] Comment: Interpretive Data Percent cell count reference ranges are not reported, since discordance with absolute values may lead to misinterpretation of CBC data. Current Interpretive Data was last revised on 2017. Basophil pct 0.8 % [facility] Comment: Interpretive Data Percent cell count reference ranges are not reported, since discordance with absolute values may lead to misinterpretation of CBC data. Current Interpretive Data was last revised on 2017. Blood 07/29/2024 11:0 1 AM DEVULCANIZER TENDER 07/29/2024 11:34 AM DEVULCANIZER TENDER us Jossie King MD LAB BLOOD ORDERABL ES Final Result [facility] Department [place] [address] * PSA screen (07/29/2024 11:01 AM DEVULCANIZER TENDER) PSA-Total 0.55 <=3.90 ng/mL Comment: Interpretive Data [...] revised 21. Blood 07/29/2024 11:0 1 AM DEVULCANIZER TENDER 07/29/2024 11:33 AM DEVULCANIZER TENDER Narrative [facility] - 07/29/2024 12:39 PM DEVULCANIZER TENDER This lab is being obtained as part of a Kidney transplant evaluation, is time sensitive, and should only be drawn during the evaluation visit at [facility] Lab. us Jossie King MD LAB BLOOD ORDERABL ES Final Result [facility] [place] [address] * (ABNORMAL) Iron profile w/ IBC (07/29/2024 11:01 AM DEVULCANIZER TENDER) Pathologist [facility] Iron 62 50 - 150 mcg/dL TIBC 208(L) 250 - 400 mcg/dL [facility] Transferrin saturation 30 20 - 50 % [facility] Blood 07/29/2024 11:0 1 AM DEVULCANIZER TENDER 07/29/2024 11:33 AM DEVULCANIZER TENDER Narrative [facility] - 07/29/2024 12:10 PM DEVULCANIZER TENDER This lab is being obtained as part of a Kidney transplant evaluation, is time sensitive, and should only be drawn during the evaluation visit at [address] Jossie King MD LAB BLOOD ORDERABL ES Final Result Performing Organization Address [facility] de Phone Number [facility] Department [place] [address] * HIV 1/2 Antibody plus p24 Antigen Blood (07/29/2024 11:01 AM DEVULCANIZER TENDER) [facility] HIV 1/2 ab + p24 ag Nonreactive Nonreactive Comment:Nonreactive for HIV- 1 antigen and HIV-1/HIV-2 antibodies. No laboratory evidence of HIV infection. If acute HIV infection is suspected, consider testing for HIV-1 RNA. Current interpretive data was last revised on 22. Blood 07/29/2024 11:0 1 AM DEVULCANIZER TENDER 07/29/2024 11:32 AM DEVULCANIZER TENDER Narrative [facility] - 07/29/2024 12:13 PM DEVULCANIZER TENDER This lab is being obtained as part of a Kidney transplant evaluation, is time sensitive, and should only be drawn during the evaluation visit at [address] Jossie King MD LAB MICROBIOLOGY - GENERAL ORDERABLES Final Result Performing Organization Address [facility] de Phone Number [facility] Department [place] [address] * (ABNORMAL) CMV, IgG Blood (07/29/2024 11:01 AM DEVULCANIZER TENDER) [facility] CMV IgG Positive( A) Negative Comment: Interpretive [...] CMV infection. Blood 07/29/2024 11:0 1 AM DEVULCANIZER TENDER 07/29/2024 11:33 AM DEVULCANIZER TENDER Luis APARICIO [facility] - 07/29/2024 1:44 PM DEVULCANIZER TENDER This lab is being obtained as part of a Kidney transplant evaluation, is time sensitive, and should only be drawn during the evaluation visit at [facility] Lab. us Jossie King MD LAB MICROBIOLOGY - GENERAL ORDERABLES Final Result [facility] Billie [facility] Department [place] [address] * HLA Antibody Screen - SAB (Class I and Class II) (07/29/2024 11:01 AM DEVULCANIZER TENDER) Class I Treatment EDTA [facility] Class I [...] DR52 H[facility]OT[facility]AC Blood 07/29/2024 11:0 1 AM DEVULCANIZER TENDER 08/02/2024 9:46 AM DEVULCANIZER TENDER Narrative [facility] - 08/02/2024 9:46 AM DEVULCANIZER TENDER Single-antigen HLA antibody screen is performed on serum samples using a method developed and validated by the [facility] HLA laboratory based on an FDA-approved IVD kit (LABScreen Single-Antigen, [place], [place], [place]). All patient serum samples are pretreated with EDTA before the screen to prevent complement interference. Additional serum treatments, such as adsorption and DTT treatment, may be performed as indicated. ??Interpretive comments: Low risk: MFI [id number]. Moderate risk: MFI [id number]. Increased risk: MFI >/= 5000. The presence [...] antigens to avoid. Testing performed at the [facility], [address] [place] [address], 5th [place], [place], [address]. [place] # [id number]. Dorothy Meade, Ph.D., Furnace Charging Machine Operator, HLA Laboratory Rell Samuels M.D., Ph.D., Fiberglass Container Winding Operator, HLA Laboratory Licha Nieto, Ph.D., CLIA Fib[employer]lass Container Winding Operator, [facility] Current methodology and interpretive comments last revised on 09/15/2022. us Jossie King MD LAB BLOOD ORDERABL ES Final Result [facility] * (ABNORMAL) CBC with auto differential (07/29/2024 11:01 AM DEVULCANIZER TENDER) WBC 5.1 3.8 - 9.9 K/cumm Hgb 11.5(L) 13.0 - 17.5 g/dL [facility] Hct 34.4(L) 38.9 - 50.3 % [facility] Plt 208 150 - 400 K/cumm [facility] MPV 10.8 9.1 - 12.3 fL [facility] RBC 3.76(L) 4.30 - 5.80 M/cumm [facility] MCV 91.5 81.3 - 96.4 fL [facility] MCH 30.6 27.1 - 33.3 pg [facility] MCHC 33.4 32.3 - 35.7 g/dL [facility] RDW CV 14.3 11.1 - 14.9 % [facility] RDW SD 47.9 35.7 - 48.1 fL [facility] NRBC abs 0.00 0.00 - 0.01 K/cumm [facility] Blood 07/29/2024 11:0 1 AM DEVULCANIZER TENDER 07/29/2024 11:34 AM DEVULCANIZER TENDER Narrative [facility] - 07/29/2024 11:45 AM DEVULCANIZER TENDER This lab is being obtained as part of a Kidney transplant evaluation, is time sensitive, and should only be drawn during the evaluation visit at [address] Lab. Jossie King MD LAB BLOOD ORDERABL ES Final Result [facility] Department [place] [address] * Hepatitis C antibody Blood (07/29/2024 11:01 AM DEVULCANIZER TENDER) Hep C Ab Nonreactive Nonreactive Comment:Antibodies to HCV no t detected. Does NOT exclude the possibility of recent exposure to HCV. Current interpretive data was last revised on 22 Blood 07/29/2024 11:0 1 AM DEVULCANIZER TENDER 07/29/2024 11:32 AM DEVULCANIZER TENDER Narrative [facility] - 07/29/2024 12:47 PM DEVULCANIZER TENDER This lab is being obtained as part of a Kidney transplant evaluation, is time sensitive, and should only be drawn during the evaluation visit at [address] Lab. Jossie King MD LAB MICROBIOLOGY - GENERAL ORDERABLES Final Result Performing Organization Address [facility] Co de Phone Number [facility] [place] [address] * (ABNORMAL) Madiha-Morris virus (EBV) antibody panel Blood (07/29/2024 11:01 AM DEVULCANIZER TENDER) Pathologist [facility] EBV nuclear Ab Positive(A) Negative Comment:Indicates the presen ce of detectable IgG antibody to EBV Nuclear Antigen. EBV VCA IgG Positive(A) Negative [facility] Comment:Indicates the presen ce of antibody; 90% of the adult population will have been infected with EBV sometime in the past. EBV VCA IgM Negative Negative [facility] Comment:No detectable IgM an tibody to EBV-VCA. A negative result indicates no current infection with EBV. If clinical suspicion of acute EBV infection is present, testing should be repeated after one week. EBV interp Past Infection [facility] Blood 07/29/2024 11:0 1 AM DEVULCANIZER TENDER 07/29/2024 11:33 AM DEVULCANIZER TENDER Narrative [facility] - 07/29/2024 1:43 PM DEVULCANIZER TENDER This lab is being obtained as part of a Kidney transplant evaluation, is time sensitive, and should only be drawn during the evaluation visit at [address] Lab. Jossie King MD LAB MICROBIOLOGY - GENERAL ORDERABLES Final Result Performing Organization Address [facility] Co de Phone Number [facility] Department [place] [address] * Hepatitis B core antibody, total Blood (07/29/2024 11:01 AM DEVULCANIZER TENDER) Pathologist [facility] Hep B core IgG/IgM Nonreactive Nonreactive Blood 07/29/2024 11:0 1 AM DEVULCANIZER TENDER 07/29/2024 11:32 AM DEVULCANIZER TENDER Narrative [facility] - 07/29/2024 12:47 PM DEVULCANIZER TENDER This lab is being obtained as part of a Kidney transplant evaluation, is time sensitive, and should only be drawn during the evaluation visit at [address] Jossie King MD LAB MICROBIOLOGY - GENERAL ORDERABLES Final Result Performing Organization Address City/[facility] Co de Phone Number [facility] Department [place] [address] * Protein, urine, random (07/29/2024 11:01 AM DEVULCANIZER TENDER) Protein, ur, quant 121.2 mg/dL Comment: Interpretive Data No reference range established. Current interpretive data was last revised 2019. Urine 07/29/2024 11:0 1 AM DEVULCANIZER TENDER 07/29/2024 11:32 AM DEVULCANIZER TENDER Narrative [facility] - 07/29/2024 12:18 PM DEVULCANIZER TENDER This lab is being obtained as part of a Kidney transplant evaluation, is time sensitive, and should only be drawn during the evaluation visit at [address] Jossie King MD LAB URINE ORDERABL ES Final Result Performing Organization Address [facility] de Phone Number [facility] [place] [address] * Creatinine, urine, random (07/29/2024 11:01 AM DEVULCANIZER TENDER) Creatinine Ur 167.1 mg/dL Comment: Interpretive Data No reference range established. Current interpretive data was last revised 2019. Urine 07/29/2024 11:0 1 AM DEVULCANIZER TENDER 07/29/2024 11:32 AM DEVULCANIZER TENDER Narrative [facility] - 07/29/2024 12:18 PM DEVULCANIZER TENDER This lab is being obtained as part of a Kidney transplant evaluation, is time sensitive, and should only be drawn during the evaluation visit at [address] Jossie King MD LAB URINE ORDERABL ES Final Result Performing Organization Address [facility] de Phone Number [facility] Department [place] [address] * HSV 2 IgG Antibody Blood (07/29/2024 11:01 AM DEVULCANIZER TENDER) HSV 2 IgG Nonreactive Nonreactive Comment: Interpretive Data 1. Nonreactive: No detectable IgG antibody to HSV-2. 2. Equivocal: Presence or absence of detectable antibodies to HSV-2 cannot be determined and the test should be repeated. 3. Reactive: Indicates presence of detectable IgG antibody to HSV-2. Current interpretive data was last revised on 2022. Blood 07/29/2024 11:0 1 AM DEVULCANIZER TENDER 07/29/2024 11:33 AM DEVULCANIZER TENDER Narrative [facility] - 07/29/2024 1:44 PM DEVULCANIZER TENDER This lab is being obtained as part of a Kidney transplant evaluation, is time sensitive, and should only be drawn during the evaluation visit at [address] Lab. Jossie King MD LAB MICROBIOLOGY - GENERAL ORDERABLES Final Result [facility] Department [place] [address] * (ABNORMAL) HSV 1 IgG Antibody Blood (07/29/2024 11:01 AM DEVULCANIZER TENDER) Pathologist [facility] HSV 1 IgG Reactive( A) Nonreactive Comment: Interpretive Data 1. Nonreactive: No detectable IgG antibody to HSV-1. 2. Equivocal: Presence or absence of detectable antibodies to HSV-1 cannot be determined and the test should be repeated. 3. Reactive: Indicates presence of detectable IgG antibody to HSV-1. Current interpretive data was last revised on 2016. Blood 07/29/2024 11:0 1 AM DEVULCANIZER TENDER 07/29/2024 11:33 AM DEVULCANIZER TENDER Narrative [facility] - 07/29/2024 1:44 PM DEVULCANIZER TENDER This lab is being obtained as part of a Kidney transplant evaluation, is time sensitive, and should only be drawn during the evaluation visit at [address] Lab. Jossie King MD LAB MICROBIOLOGY - GENERAL ORDER[place] [address] * RPR Blood (07/29/2024 11:01 AM DEVULCANIZER TENDER) Pathologist [facility] RPR Nonreactive Nonreactive Blood 07/29/2024 11:0 1 AM DEVULCANIZER TENDER 07/29/2024 11:33 AM DEVULCANIZER TENDER Narrative [facility] - 07/29/2024 12:34 PM DEVULCANIZER TENDER This lab is being obtained as part of a Kidney transplant evaluation, is time sensitive, and should only be drawn during the evaluation visit at [address] Lab[address] us Jossie King MD LAB MICROBIOLOGY - GENERAL ORDERABLES Final Result Performing Organization Address [facility] [place] [address] * Hepatitis B surface antibody (immune status) Blood (07/29/2024 11:01 AM DEVULCANIZER TENDER) Pathologist [facility] HBsAb (immune status) Reactive Comment:This result is consi stent with immunity to Hepatitis B Virus when used in the setting of routine screening. Current interpretive data was last revised on 22 Blood 07/29/2024 11:0 1 AM DEVULCANIZER TENDER 07/29/2024 11:32 AM DEVULCANIZER TENDER Narrative [facility] - 07/29/2024 12:47 PM DEVULCANIZER TENDER This lab is being obtained as part of a Kidney transplant evaluation, is time sensitive, and should only be drawn during the evaluation visit at [address] Lab[address] us Jossie King MD LAB MICROBIOLOGY - GENERAL ORDERABLES [place] [address] * Hepatitis B Surface Antigen Blood (07/29/2024 11:01 AM DEVULCANIZER TENDER) HepBsAg Nonreactive Nonreactive Blood 07/29/2024 11:0 1 AM DEVULCANIZER TENDER 07/29/2024 11:32 AM DEVULCANIZER TENDER Narrative [facility] - 07/29/2024 12:47 PM DEVULCANIZER TENDER This lab is being obtained as part of a Kidney transplant evaluation, is time sensitive, and should only be drawn during the evaluation visit at [address] Lab[address] Jossie King MD LAB MICROBIOLOGY - GENERAL ORDERABLES Final Result Performing Organization Address [facility] Co de Phone Number [facility] Department [place] [address] * (ABNORMAL) aPTT (07/29/2024 11:01 AM DEVULCANIZER TENDER) [facility] aPTT 61(H) 28 - 38 sec Comment: Interpretive Data Heparin therapeutic range: 66.0 - 100.0 seconds. Range based on correlation with therapeutic heparin activity range of 0.3 - 0.7 Units/mL. Current interpretive data was last revised on 2023. Blood 07/29/2024 11:0 1 AM DEVULCANIZER TENDER 07/29/2024 11:32 AM DEVULCANIZER TENDER Narrative [facility] - 07/29/2024 11:42 AM DEVULCANIZER TENDER This lab is being obtained as part of a Kidney transplant evaluation, is time sensitive, and should only be drawn during the evaluation visit at [address] Jossie King MD LAB BLOOD ORDERABL ES Final Result Performing Organization Address [facility] Co de Phone Number [facility] Department [place] [address] * (ABNORMAL) Protime-INR (07/29/2024 11:01 AM DEVULCANIZER TENDER) [facility] PT 50.6(H) 9.7 - 13.0 sec INR 4.54(H) 0.90 - 1.20 [facility] Comment: Interpretive data Oral anticoagulant therapeutic ranges: Venous thromboembolism prophylaxis or treatment: 2.0-3.0 CARDIOLOGY Standard range: 2.0-3.0 High-intensity range: 2.5-3.5 Refer to indication-specific guidelines for appropriate target ranges for prosthetic heart valve replacement. Current interpretive data was last revised on 2019. Blood 07/29/2024 11:0 1 AM DEVULCANIZER TENDER 07/29/2024 11:32 AM DEVULCANIZER TENDER Narrative [facility] 07/29/2024 11:42 AM DEVULCANIZER TENDER This lab is being obtained as part of a Kidney transplant evaluation, is time sensitive, and should only be drawn during the evaluation visit at [address] Jossie King MD LAB BLOOD ORDERABL ES Final Result Performing Organization Address [facility] Co de Phone Number [facility] Department [place] [address] * Varicella Zoster IgG antibody Blood (07/29/2024 11:01 AM DEVULCANIZER TENDER) Pathologist [facility] VZV IgG Reactive Reactive Comment:Reactive: Results diego ggest response to immunization or prior exposure to the virus. Blood 07/29/2024 11:0 1 AM DEVULCANIZER TENDER 07/29/2024 11:33 AM DEVULCANIZER TENDER Narrative [facility] 07/29/2024 1:45 PM DEVULCANIZER TENDER This lab is being obtained as part of a Kidney transplant evaluation, is time sensitive, and should only be drawn during the evaluation visit at [address] Jossie King MD LAB MICROBIOLOGY - GENERAL ORDERABLES Final Result Performing Organization Address City/[facility]/ZIP Co de Phone Number [facility] Department [place] [place] [address] * (ABNORMAL) Uric acid (07/29/2024 11:01 AM DEVULCANIZER TENDER) Pathologist [facility] [facility] Uric acid 2.0(L) 3.0 - 8.0 mg/dL Blood 07/29/2024 11:0 1 AM DEVULCANIZER TENDER 07/29/2024 11:33 AM DEVULCANIZER TENDER Narrative [facility] - 07/29/2024 12:10 PM DEVULCANIZER TENDER This lab is being obtained as part of a Kidney transplant evaluation, is time sensitive, and should only be drawn during the evaluation visit at [address] Jossie King MD LAB BLOOD ORDERABL ES Final Result Performing Organization Address [facility] de Phone Number [facility] [place] [address] * (ABNORMAL) Phosphorus (07/29/2024 11:01 AM DEVULCANIZER TENDER) Phosphorus, pl 5.1(H) 2.3 - 4.5 mg/dL Blood 07/29/2024 11:0 1 AM DEVULCANIZER TENDER 07/29/2024 11:33 AM DEVULCANIZER TENDER Narrative [facility] 07/29/2024 12:10 PM DEVULCANIZER TENDER This lab is being obtained as part of a Kidney transplant evaluation, is time sensitive, and should only be drawn during the evaluation visit at [address] Jossie King MD LAB BLOOD ORDERABL ES Final Result Performing Organization Address [facility] de Phone Number [facility] [place] [address] * (ABNORMAL) PTH (07/29/2024 11:01 AM DEVULCANIZER TENDER) PTH 444(H) 15 - 65 pg/mL Blood 07/29/2024 11:0 1 AM DEVULCANIZER TENDER 07/29/2024 11:34 AM DEVULCANIZER TENDER Narrative [facility] - 07/29/2024 12:02 PM DEVULCANIZER TENDER This lab is being obtained as part of a Kidney transplant evaluation, is time sensitive, and should only be drawn during the evaluation visit at [address] Lab[address] Jossie King MD LAB BLOOD ORDERABL ES Final Result Performing Organization Address [facility] de Phone Number [facility] [place] [address] * (ABNORMAL) Hemoglobin A1c (07/29/2024 11:01 AM DEVULCANIZER TENDER) [facility] Hgb A1C 9.0(H) 4.0 - 5.6 % Estimated Average Glucose 212 mg/dL [facility] Comment: The ADA recommends reporting an estimated Average Glucose (eAG) with all Hemoglobin A1c results using the equation derived from a study of 507 normal and diabetic adults. ??Minority populations were underrepresented and children were not included. ?? (Diabetes Care 2020; 43(S1): S66-S76). ??The eAG is not equivalent to a fasting glucose. Blood 07/29/2024 11:0 1 AM DEVULCANIZER TENDER 07/29/2024 11:34 AM DEVULCANIZER TENDER Narrative [facility] - 07/29/2024 11:53 AM DEVULCANIZER TENDER This lab is being obtained as part of a Kidney transplant evaluation, is time sensitive, and should only be drawn during the evaluation visit at [address] Jossie King MD LAB BLOOD ORDER[place] [address] * Gamma GT (07/29/2024 11:01 AM DEVULCANIZER TENDER) [facility] GGT 22 10 - 50 Units/L Blood 07/29/2024 11:0 1 AM DEVULCANIZER TENDER 07/29/2024 11:33 AM DEVULCANIZER TENDER Narrative [facility] - 07/29/2024 12:40 PM DEVULCANIZER TENDER This lab is being obtained as part of a Kidney transplant evaluation, is time sensitive, and should only be drawn during the evaluation visit at [address] Jossie King MD LAB BLOOD ORDERAB[place] [address] * (ABNORMAL) Ferritin (07/29/2024 11:01 AM DEVULCANIZER TENDER) Ferritin 761(H) 30 - 400 ng/mL Blood 07/29/2024 11:0 1 AM DEVULCANIZER TENDER 07/29/2024 11:33 AM DEVULCANIZER TENDER Narrative [facility] - 07/29/2024 12:10 PM DEVULCANIZER TENDER This lab is being obtained as part of a Kidney transplant evaluation, is time sensitive, and should only be drawn during the evaluation visit at [facility] Lab. us Jossie King MD LAB BLOOD ORDERABL ES Final Result [facility] Department [place] [address] * (ABNORMAL) Lipid panel (07/29/2024 11:01 AM DEVULCANIZER TENDER) Pathologist [facility] Cholesterol 114 30 - 199 mg/dL Comment: [...] on 2018. Triglycerides 66 <=149 mg/dL [facility] Comment: Interpretive Data Ages < [...] revised on 2024. Non-HDL Cholesterol 85 mg/dL [facility] Comment: Interpretive Data Ages < or [...] last revised on 2018. Chol/HDL ratio 4 [facility] Blood 07/29/2024 11:0 1 AM DEVULCANIZER TENDER 07/29/2024 11:33 AM DEVULCANIZER TENDER Narrative [facility] - 07/29/2024 12:10 PM DEVULCANIZER TENDER This lab is being obtained as part of a Kidney transplant evaluation, is time sensitive, and should only be drawn during the evaluation visit at [facility] Lab. us Jossie King MD LAB BLOOD ORDERABL ES Final Result [facility] [place] [address] * (ABNORMAL) Comprehensive metabolic panel (07/29/2024 11:01 AM DEVULCANIZER TENDER) Sodium 136 135 - 145 mmol/L Potassium, pl 4.6 3.3 - 4.9 mmol/L [facility] Chloride 93(L) 97 - 110 mmol/L [facility] CO2 26 22 - 32 mmol/L [facility] Anion gap 17(H) 2 - 15 mmol/L [facility] BUN 65(H) 6 - 25 mg/dL [facility] Creatinine 8.07(H) 0.80 - 1.30 mg/dL [facility] Glucose 280(H) 70 - 199 mg/dL [facility] Comment: Interpretive Data Fasting glucose >/= [...] 2022. Calcium 9.4 8.5 - 10.3 mg/dL [facility] Bilirubin, total 0.3 0.1 - 1.2 mg/dL [facility] Protein, pl 7.2 6.5 - 8.5 g/dL [facility] Albumin 3.8 3.5 - 5.0 g/dL [facility] Alk phos 99 40 - 130 Units/L [facility] ALT 30 7 - 55 Units/L [facility] AST 31 10 - 50 Units/L [facility] Blood 07/29/2024 11:0 1 AM DEVULCANIZER TENDER 07/29/2024 11:33 AM DEVULCANIZER TENDER Narrative [facility] - 07/29/2024 12:10 PM DEVULCANIZER TENDER This lab is being obtained as part of a Kidney transplant evaluation, is time sensitive, and should only be drawn during the evaluation visit at [facility] Lab. us Jossie King MD LAB BLOOD ORDERABL ES Final Result [facility] Department [place] [address] * (ABNORMAL) Oxalate (oxalic acid) (07/29/2024 10:53 AM DEVULCANIZER TENDER) Oxalate 12.3(H) <=2.0 mcmol/L [facility] Comment: High value suggestive of Primary Hyperoxaluria. However, if the patient has chronic kidney disease (GFR<30 mL/min/1.73m2), plasma oxalate values up to 30 mcmol/L can be normal. The [facility] Hyperoxaluria [facility] is available to review case details and answer any questions regarding interpretation ([email or web address]; [phone]) ADDITIONAL INFORMATION This test has been modified from the air plant engineer's instructions. Its performance characteristics were determined by [facility] in a manner consistent with CLIA requirements. This test has not been cleared or approved by the U.S. Food and Drug Administration. Test Performed by: [place] [address] Digital Coordinator: Jairo Higgins Ph.D.; CLIA# [id number] Blood 07/29/2024 10:5 3 AM DEVULCANIZER TENDER 07/29/2024 11:37 AM DEVULCANIZER TENDER us Jossie King MD LAB BLOOD ORDERABL Final Result [facility] Department [place] [address] [place] [facility] * (ABNORMAL) Urinalysis reflex to microscopic (07/29/2024 10:53 AM DEVULCANIZER TENDER) Color, ur Yellow Yellow Clarity, ur Cloudy(A) Clear [facility] Specific gravity, ur 1.022 1.003 - 1.030 [facility] pH, urine 6.0 [facility] Comment: Interpretive Data ? Urine pH is affected by diet, medications, systemic acid-base disturbances, and renal tubular function. ??pH may affect urinary stone formation. ??For example, urine pH below 6.0 may help reduce the tendency for calcium phosphate stones and pH greater than 6.0 may reduce the tendency for uric acid stone formation. Source: [facility] Current Interpretive Data was last revised on 2017 Protein, ur ql 2+(A) Negative [facility] Glucose, ur ql 4+(A) Negative [facility] Ketones, ur Negative Negative [facility] Bilirubin, ur Negative Negative [facility] Blood, ur 3+(A) Negative [facility] Urobilinogen, ur <2.0 <2.0 mg/dL [facility] Nitrite, ur Negative Negative [facility] Leukocyte esterase, ur 2+(A) Negative [facility] UA reflex comment Reflex to microscopic UA will be performed. [facility] Urine 07/29/2024 10:5 3 AM DEVULCANIZER TENDER 07/29/2024 11:27 AM DEVULCANIZER TENDER Narrative [facility] - 07/29/2024 11:29 AM DEVULCANIZER TENDER This lab is being obtained as part of a Kidney transplant evaluation, is time sensitive, and should only be drawn during the evaluation visit at [facility] Lab. us Jossie King MD LAB URINE ORDERABL ES Final Result [facility] Department [place] [address] * (ABNORMAL) Urinalysis, microscopic only (07/29/2024 10:53 AM DEVULCANIZER TENDER) WBC, ur 21-50(A) 0 - 5 /HPF RBC, ur >50(A) 0 - 2 /HPF [facility] Epithelial cells, squamous, ur 1-5 0 - 5 /HPF [facility] Bacteria, ur Trace(A) [facility] Mucous, ur Present(A) [facility] Hyaline casts, ur 1-5 0 - 10 /LPF [facility] Urine 07/29/2024 10:5 3 AM DEVULCANIZER TENDER 07/29/2024 11:27 AM DEVULCANIZER TENDER us Jossie King MD LAB URINE ORDERABL ES Final Result [facility] Department [place] [address] * Cardiology Document Scan (06/07/2024 11:10 AM CDT) Anatomical Region Laterality Modality Other us Karen Barnes NP CV CARDIAC SERVICES PROCEDUR ES Final Result * (ABNORMAL) TSH (10/27/2023 2:30 AM DEVULCANIZER TENDER) Thyroid Stimulating Hormone 13.20(H) 0.30 - 4.20 mcIUnit/mL Blood 10/27/2023 2:30 AM DEVULCANIZER TENDER 10/27/2023 2:42 AM DEVULCANIZER TENDER Lorne Mcnulty MD LAB BLOOD ORDERABLES Final Result Performing Organization Address City/[facility] Co de Phone Number [facility] [address] Department [place] [address] from Last 3 Months or Most Recently Relevant to Health Maintenance Insurance [facility] MEDICARE SOLUTIONS IDPA MEDICARE SOLUTIONS TRANSPLANT [employer] MEDICARE RISK IDPA TRANSPLANT OPT MEDICARE RISK IDPA Advance Directives For more information, please contact: [phone] * Full Code (Latest Code Status on File) Date Activated Date Inactivated Comments 10/13/2023 11:32 PM 11/03/2023 11:42 PM * Full Code Date Activated Date Inactivated Comments 06/05/2022 6:17 AM 06/29/2022 6:20 PM * Full Code Date Activated Date Inactivated Comments 06/05/2022 4:43 AM 06/05/2022 4:43 AM * Full Code Date Activated Date Inactivated Comments 06/04/2022 9:55 PM 06/05/2022 4:43 AM Care Teams 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
--- OUTSIDE RECORDS SUMMARY | 2024-08-24 04:37 | XMS_ITS | Referral Summary ---
Author Organization [facility] Address [address] [place] [address] Care Team Providers Care Change Advisor Name Role Phone Aditya Castro MD Primary Care Provider [phone] Alondra Lambert RN Unavailable [phone] Shannon Brock MD, [place] P. Unavailable [phone] Leandro Reyes MD Unavailable [phone] Encounters Date Type Department Care Team Description 08/06/[address] [facility] Trans[facility]ney [address] [facility] [address] [place] [address] [phone] [place] [address] Alondra Lambert RN 07/30/[address] [facility] [address] [facility] [address] [place], [place] [address]op [phone] [place] [address] Alondra Lambert RN 07/29/2024 10:55 AM SENIOR MARKETING ENGINEER - 07/29/2024 11:59 PM SENIOR MARKETING ENGINEER Hospital Encounter [facility] [address] [place] [address] End stage renal disease (CMS/HCC) (HCC) Discharge Disposition: Discharge to home or self care 07/29/2024 10:53 AM SENIOR MARKETING ENGINEER - 07/29/2024 11:59 PM SENIOR MARKETING ENGINEER Hospital Encounter [facility]) [address] [place] [address] End stage renal disease (CMS/HCC) ([facility]) Discharge Disposition: Discharge to home or self care 07/29/2024 1:15 PM SENIOR MARKETING ENGINEER Lab [facility] [address] [place] [address] End stage renal disease (CMS/HCC) (HCC); ESRD (end stage renal disease) (CMS/HCC) (HCC) 07/29/[address] [facility] Trans[facility]ney [address] [facility] [address] Mailstop [phone] [place] [address] Alondra Lambert RN 07/29/2024 10:58 AM SENIOR MARKETING ENGINEER - 07/29/2024 11:59 PM SENIOR MARKETING ENGINEER Hospital Encounter [facility] [address] [place] [address] End stage renal disease ([facility]) ([facility]) Discharge Disposition: Discharge to home or self care 07/29/2024 9:00 AM SENIOR MARKETING ENGINEER Social Work [facility] [address] [facility], 8th Floor, [place] [address] 07/29/2024 11:02 AM SENIOR MARKETING ENGINEER - 07/29/2024 11:59 PM SENIOR MARKETING ENGINEER Hospital En[facility]monary Rehabil[facility]iation Program [address] [facility] [address] [place] [address] Discharge Disposition: Discharge to home or self care 07/29/2024 1:00 PM SENIOR MARKETING ENGINEER Office Visit [facility] [address] [facility] 5th [place] [address] [place] [id number] Radha Bartholomew MD Pre-transplant evaluation for kidney transplant (Primary Dx); End stage renal disease (CMS/HCC) ([facility]); Status post coronary artery bypass grafting; Status post aortic valve replacement; Type 1 diabetes mellitus with chronic kidney disease on chronic dialysis (CMS/HCC) ([facility]); CAD in [place] artery; Paroxysmal atrial fibrillation (CMS/HCC) (HCC) 07/26/[address] [facility] [address] [facility] [address] Mailstop [phone] [place] [address] Elsie Cornejo 07/26/2024 Orders Only [facility] [address] [facility] [address] Mailstop [phone] [place] [address] Alondra Lambert, RN ESRD (end stage renal disease) (CMS/HCC) (HCC) (Primary Dx) 07/26/[address] [facility] [address] [facility] [address] Mailstop [phone] [place] [address] Alondra Lambert RN 07/22/[address] [facility] [address] [facility] [address] Mailstop 04-65- [place] [address] Chris Richard 06/28/[address] [facility] [address] [facility] [address] Mailstop 77-44- [place] [address] Chris Richard 06/24/[address] [facility] [address] [facility] [address] Mailstop [phone] [place] [address] Chris Richard 06/11/2024 Orders Only [facility] [address] [place] [address] Karen Barnes NP 06/06/[address] [facility] [address] [facility] [address] Mailstop [phone] [place] [address] Melany Kelly from Last 3 Months Allergies [...] PUMP: Continue Omnipod 5 insulin pump with [employer] G6 CGM at home settings: TIME BASAL [...] 1 tablet (25 mcg total) by mouth tap builder before breakfast 30 tablet 1 11/04/19 24 [...] mg SL tablet 12/28/19 18 Active peg 581-erjjhrilmyta-ut ycerin (ARTIFICAL TEARS) 1-0.2-0.2 % ophthalmic solution 1 drop 4 (four) times a day 07/07/20 22 Active potassium chloride ER 20 mEq CR tablet Active Active Problems Problem Noted Date Diagnosed Date End stage renal disease ([facility]) 07/29/2024 Nonrheumatic aortic valve stenosis 11/22/2023 Status post aortic valve replacement 11/22/2023 Status post coronary artery bypass grafting 10/2023 CAD in [place] artery 10/13/2023 Anemia 06/22/2022 Assessment & Plan (06/29/2022 10:12 AM SENIOR MARKETING ENGINEER): Stable, likely 2/2 anemia from ESRD, no [...] trend Hb. ESRD (end stage renal disease) ([facility]) 022 Assessment & Plan (06/29/2022 10:12 AM SENIOR MARKETING ENGINEER): - Renal consulted, s/p CRRT in the ICU now back on PD. Tolerated well and nephrology following - Trialysis catheter removed - Continue vitamins for renal bone mineral disease. Assessment & Plan (06/28/2022 3:29 PM SENIOR MARKETING ENGINEER): - Renal consulted, s/p CRRT in the [...] 06/22/2022 Assessment & Plan (06/29/2022 10:12 AM SENIOR MARKETING ENGINEER): C/b cardiogenic shock requiring impella in the setting of cath and AHRF 2/2 pulmonary edema, now resolved. TTE demonstrating recovered EF 65% with grade I diastolic dysfunction. - metop as above - continue low dose losartan 12.5mg daily, ok per nephro. Tolerating well - volume management per PD Assessment & Plan (06/28/2022 3:29 PM SENIOR MARKETING ENGINEER): C/b cardiogenic shock requiring impella in the [...] tartrate, start GDMT per cardiology. Atrial fibrillation ([facility]) 06/22/2022 Assessment & Plan (06/29/2022 10:12 AM SENIOR MARKETING ENGINEER): Converted to NSR overnight on 06/24. CHADsVASc of 4 not on anticoagulation prior to admission. - cardiology consulted - recommended ongoing rate control - holding off on a/c with high risk for bleeding while on DAPT - reduced metop to 25mg BID in the setting of hypotension, HR 70s NSR Assessment & Plan (06/28/2022 3:30 PM SENIOR MARKETING ENGINEER): Converted to NSR overnight on 06/24. CHADsVASc [...] AC. NSTEMI (non-ST elevated myocardial infarction) ( [facility]) 06/22/2022 Assessment & Plan (06/29/2022 10:11 AM SENIOR MARKETING ENGINEER): With recurrent chest pain post-cath. He has [...] today Assessment & Plan (06/28/2022 3:30 PM SENIOR MARKETING ENGINEER): With recurrent chest pain post-cath. He has [...] 06/22/2022 Assessment & Plan (06/29/2022 10:11 AM SENIOR MARKETING ENGINEER): Secondary to NSTEMI, s/p Impella since removed on 06/10. Resolved. Assessment & Plan (06/23/2022 4:55 PM CDT): Secondary to NSTEMI, s/p Impella since removed on 06/10. Resolved. Assessment & Plan (06/22/2022 8:22 PM CDT): -Secondary to NSTEMI, s/p Impella since removed on 06/10. Acute hypoxemic respiratory failure 06/09/2022 Assessment & Plan (06/29/2022 10:12 AM SENIOR MARKETING ENGINEER): Secondary to ACS and flash pulmonary edema, [...] (06/10/2022): Added automatically from request for surgery [id number] Abnormal cardiovascular stress test 12/29/2020 Overview (12/29/2020): Added automatically from request for surgery [id number] 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n ative artery of [place] heart with stable angina pectoris ([facility]) 05/23/2017 History of coronary artery stent [...] 01/18/2013 Assessment & Plan (06/29/2022 10:12 AM SENIOR MARKETING ENGINEER): A1c well controlled on admission. He uses [...] session Assessment & Plan (06/28/2022 3:28 PM SENIOR MARKETING ENGINEER): A1c well controlled on admission. He uses [...] Recorded In the past 12 months has [employer], gas, oil, or water [employer] threatened to shut off services in your home? No 08/01/2024 Social Connection and Isolation Panel [NHANES] A nswer Date Recorded In a typical week, how many times do you talk on the phone with family, friends, or neighbors? Twice a week 08/01/2024 How often do you get together with friends or re latives? Once a week 08/01/2024 How often do you attend religion or presybeterian serv ices? Never 08/01/2024 Do you belong to any clubs o r organizations such as religion groups, unions, fraternal or athletic groups, or [...] a skilled nursing (including now)? No 10/16/2023 Housing Stability Vital Sign Answer Rubens e Recorded In the last 12 months, was t here a time when you were not able to pay the mortgage or rent on time? No 08/01/2024 In the past 12 months, how m any times have you moved where you were living? 1 08/01/2024 At any time in the past [address] [facility], were you homeless or living in a skilled nursing (including now)? No 08/01/2024 Personal Safety Answer Date Recorded Have you ever been in or are you currently in a harmful physical or emotional relationship or is someone making you feel afraid or unsafe? 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 Male 3:42 AM SENIOR MARKETING ENGINEER Gender Identity Not on file Sexual Orientation Not on file Last Filed Vital Signs Vital Sign Reading Time Taken Comments Blood Pressure 122/75 07/29/2024 1:00 PM SENIOR MARKETING ENGINEER Pulse 116 07/29/2024 1:00 PM SENIOR MARKETING ENGINEER Temperature 36.8 ??C (98.2 ??F) 07/29/2024 1:00 PM CS T Respiratory Rate 16 12/01/2023 11:1 3 AM CDT Oxygen Saturation 96% 12/01/2023 11: 13 AM CDT Inhaled Oxygen Concentration - - Weight 121.2 kg (267 lb 1.6 oz) 07/29/2024 1:00 PM SENIOR MARKETING ENGINEER Height 177.8 cm (5' 10 ) 07/29/2024 1:00 PM SENIOR MARKETING ENGINEER Body Mass Index 38.32 07/29/2024 1:00 PM SENIOR MARKETING ENGINEER Plan of Treatment Not on file Medical Devices Implanted Type Area Disbursement Clerk Device Identifier Shelf Expiration Date Model / Serial / Lot Kyle Vascular Device Clsr Perclose Prostyle Sut-Mediatd Closure-Repair Sys 85866-55 - [id number] Implanted:Qty: 1 on 06/10/2022 by Champ Osborne MD PhD at [facility] Other - see comments Right: Femoral [employer] 01/19/2024 [id number] / / [id number] [employer] Mary Synergy Xd Monorail 2.5mm 48mm 144cm Delivery System 1 Access [id number] - [id number] Implanted:Qty: 1 on 06/07/2022 by Champ Osborne MD PhD at [facility] Stent [employer] Mary 10/27/2023 [id number] / / [id number] [employer] Mary Synergy Xd Monorail 3mm 24mm 144cm Delivery System 1 Access Port [id number] - [id number] Implanted:Qty: 1 on 06/07/2022 by Champ Osborne MD PhD at [facility] Stent [employer] Mary 07/28/2023 [id number] / / [id number] [employer] Mary Synergy Xd Monorail 2.5mm 12mm 144cm Delivery System 1 Access [id number] - [id number] - [id number] Implanted:Qty: 1 on 06/07/2022 by Champ Osborne MD PhD at [facility] Stent [employer] Mary 05/03/2023 [id number] / [id number] / [id number] [facility] Mary [id number] Device Closure Angio-Seal Vip Bondek-Plus Polyglyd L70 Cm Od6 Fr Odsec.035 In Vascular - [id number] Implanted:Qty: 1 on 01/21/2021 by Hamlet Ortega Jr., MD at [facility] Left: Groin [employer] Mary [id number] / / Kyle Vascular Device Clsr Perclose Prostyle Sut-Mediatd Closure-Repair Sys 46285-03 - [id number] Implanted:Qty: 1 on 06/07/2022 by Champ Osborne MD PhD at [facility] [employer] 01/19/202475081-23 / [id number] Kyle [employer] Device Clsr Perclose Prostyle Sut-Mediatd Closure-Repair Sys 33683-47 - [id number] Implanted:Qty: 1 on 06/07/2022 by Champ Osborne MD PhD at [facility] Kyle [employer] 11/19/202368140-92 / [id number] Bard Access Systems Power-Trialysis 13fr 30cm 3 Lumen Kink Resistance Symmetric Tip [id number] - [id number] Implanted:Qty: 1 on 06/07/2022 by Champ Osborne MD PhD at [facility] Right: Jugular Ramirez Bentley 07/20/2024 [id number] / / [id number] [employer] Impella Cp Percutaneous Left Ventricular Assist Device 0178-4544 - [id number] Implanted:Qty: 1 on 06/07/2022 by Champ Osborne MD PhD at [facility] Left: Ventricle [employer] [id number] / / Bard Access Systems Power-Trialysis 13fr 20cm 3 Lumen Short Term Dialysis Straight [id number] - [id number] Implanted:Qty: 1 on 06/18/2022 at [facility] Ramirez Chapito 07/20/2024 [id number] / / [id number] Rl [employer] Screw Bone Slf Drl Full Thread Locking 3.5x14mm Ti 100.035.14 - [id number] Implanted:Qty: 6 on 10/17/2023 by Lorne Mcnulty MD at [facility] N/A: Sternum [employer] Inc 100.035.1 4 / / Rl [employer] Inc Plate Bone Low Profile 6 Hole H Shape Sternum Ti 115.102.06 - [id number] Implanted:Qty: 2 on 10/17/2023 by Lorne Mcnulty MD at [facility] N/A: Sternum [employer] 115.102.0 6 / / Rl [employer] Plate Bone Low Profile 6 Hole O Shape Sternum Ti 115.104.06 - [id number] Implanted:Qty: 1 on 10/17/2023 by Lorne Mcnulty MD at [facility] N/A: Sternum [employer] 115.104.0 6 / / On-X Intrnl Valve Coronary Aortic Mechanical On X 25mm Onxane-25 - [id number] - [id number] Implanted:Qty: 1 on 10/17/2023 by Lorne Mcnulty MD at [facility] N/A: Heart On-X Intrnl 01/22/2028 ONXANE-25 / [id number] / Rl [employer] Screw Bone Slf Drl Full Thread Locking 3.5x18mm Ti 100.035.18 - [id number] Implanted:Qty: 12 on 10/17/2023 by Lorne Mcnulty MD at [facility] N/A: Sternum [employer] 100.035.1 8 / / Explanted Type Area Disbursement Clerk Device Identifier Shelf Expiration Date Model / Serial / Lot Bard Peripheral Vascular Bard .25x.25in Tracy Thk1.65mm Square Pledget [employer] Ptfe [id number] - [id number] Explanted:Qty: 1 on 10/17/2023 by Lorne Mcnulty MD at [facility] N/A: Heart Bard Peripheral Vascular 05/18/2026 [id number] / / Procedures Procedure Name Priority Date/Time Associated Diagnosis Comments HLA SOLID ORGAN TYPING REPORT 08/02/2024 9:04 AM SENIOR MARKETING ENGINEER SIX MINUTE WALK Routine 07/29/2024 2:46 PM SENIOR MARKETING ENGINEER End stage renal disease (CMS/HCC) (HCC) CT ABDOMEN PELVIS WO CONTRAST Schedule Routine, Read Routine (OP Routine) 07/29/2024 12:43 PM SENIOR MARKETING ENGINEER End stage renal disease (CMS/HCC) (HCC) XR ORTHOPANTOGRAM/PANOR EX Schedule Routine, Read Routine (OP Routine) 07/29/2024 11:44 AM SENIOR MARKETING ENGINEER End stage renal disease (CMS/HCC) (HCC) TYPE AND SCREEN Routine 07/29/2024 11:23 AM SENIOR MARKETING ENGINEER End stage renal disease (CMS/HCC) (HCC) ECG 12-LEAD Routine 07/29/2024 11:14 AM SENIOR MARKETING ENGINEER End stage renal disease (CMS/HCC) (HCC) ABO/RH Routine 07/29/2024 11:13 AM SENIOR MARKETING ENGINEER EGFR Routine 07/29/2024 11:01 AM SENIOR MARKETING ENGINEER End stage renal disease (CMS/HCC) (HCC) DIFFERENTIAL AUTO Routine 07/29/2024 11: 01 AM SENIOR MARKETING ENGINEER End stage renal disease (CMS/HCC) (HCC) CBC WITH AUTO DIFFERENTIAL Routine 07/29/2024 11:01 AM SENIOR MARKETING ENGINEER End stage renal disease (CMS/HCC) (HCC) COMPREHENSIVE METABOLIC PANEL Routine 07/29/2024 11:01 AM SENIOR MARKETING ENGINEER End stage renal disease (CMS/HCC) (HCC) CREATININE, URINE, RANDOM Routine 07/29/2024 11:01 AM SENIOR MARKETING ENGINEER End stage renal disease (CMS/HCC) (HCC) FERRITIN Routine 07/29/2024 11:01 AM SENIOR MARKETING ENGINEER End stage renal disease (CMS/HCC) (HCC) GAMMA GT Routine 07/29/2024 11:01 AM SENIOR MARKETING ENGINEER End stage renal disease (CMS/HCC) (HCC) HEMOGLOBIN A1C Routine 07/29/2024 11:01 AM SENIOR MARKETING ENGINEER End stage renal disease (CMS/HCC) (HCC) IRON PROFILE W/ IBC Routine 07/29/2024 1 1:01 AM SENIOR MARKETING ENGINEER End stage renal disease (CMS/HCC) (HCC) LIPID PANEL Routine 07/29/2024 11:01 AM SENIOR MARKETING ENGINEER End stage renal disease (CMS/HCC) (HCC) PTH Routine 07/29/2024 11:01 AM SENIOR MARKETING ENGINEER End stage renal disease (CMS/HCC) (HCC) APTT Routine 07/29/2024 11:01 AM SENIOR MARKETING ENGINEER End stage renal disease (CMS/HCC) (HCC) PHOSPHORUS Routine 07/29/2024 11:01 AM SENIOR MARKETING ENGINEER End stage renal disease (CMS/HCC) (HCC) PROTEIN, URINE, RANDOM Routine 07/29/2024 11:01 AM SENIOR MARKETING ENGINEER End stage renal disease (CMS/HCC) (HCC) PROTIME-INR Routine 07/29/2024 11:01 AM SENIOR MARKETING ENGINEER End stage renal disease (CMS/HCC) (HCC) URIC ACID Routine 07/29/2024 11:01 AM SENIOR MARKETING ENGINEER End stage renal disease (CMS/HCC) (HCC) PSA SCREEN Routine 07/29/2024 11:01 AM SENIOR MARKETING ENGINEER End stage renal disease (CMS/HCC) (HCC) LR HLA TYPING (CLASS I AND CLASS II) Routine 07/29/2024 11:01 AM SENIOR MARKETING ENGINEER End stage renal disease (CMS/HCC) (HCC) HLA CLASS I DNA (ABC) RECIPIENT Routine 07/29/2024 11:01 AM SENIOR MARKETING ENGINEER End stage renal disease (CMS/HCC) (HCC) HLA CLASS II DNA (DR, DQ, DP) RECIPIENT Routine 07/29/2024 11:01 AM SENIOR MARKETING ENGINEER End stage renal disease (CMS/HCC) (HCC) HLA ANTIBODY SCREEN - SAB (CLASS I AND CLASS II) Routine 07/29/2024 11:01 AM SENIOR MARKETING ENGINEER End stage renal disease (CMS/HCC) (HCC) HLA ANTIBODY SCREEN BY SINGLE ANTIGEN Routine 07/29/2024 11:01 AM SENIOR MARKETING ENGINEER End stage renal disease (CMS/HCC) (HCC) CMV, IGG Routine 07/29/2024 11:01 AM SENIOR MARKETING ENGINEER End stage renal disease (CMS/HCC) (HCC) MADIHA-MORRIS VIRUS VCA ANTIBODY PANEL Routine 07/29/2024 11:01 AM SENIOR MARKETING ENGINEER End stage renal disease (CMS/HCC) (HCC) HIV 1/2 ANTIBODY PLUS P24 ANTIGEN Routine 07/29/2024 11:01 AM SENIOR MARKETING ENGINEER End stage renal disease (CMS/HCC) (HCC) HSV 1 ANTIBODY, IGG Routine 07/29/2024 1 1:01 AM SENIOR MARKETING ENGINEER End stage renal disease (CMS/HCC) (HCC) HSV 2 ANTIBODY, IGG Routine 07/29/2024 1 1:01 AM SENIOR MARKETING ENGINEER End stage renal disease (CMS/HCC) (HCC) HEPATITIS B CORE ANTIBODY, TOTAL Routine 07/29/2024 11:01 AM SENIOR MARKETING ENGINEER End stage renal disease (CMS/HCC) (HCC) HEPATITIS B SURFACE ANTIBODY (IMMUNE STATUS) Routine 07/29/2024 11:01 AM SENIOR MARKETING ENGINEER End stage renal disease (CMS/HCC) (HCC) HEPATITIS B SURFACE ANTIGEN Routine 07/29/2024 11:01 AM SENIOR MARKETING ENGINEER End stage renal disease (CMS/HCC) (HCC) HEPATITIS C ANTIBODY Routine 07/29/2024 11:01 AM SENIOR MARKETING ENGINEER End stage renal disease (CMS/HCC) (HCC) RPR Routine 07/29/2024 11:01 AM SENIOR MARKETING ENGINEER End stage renal disease (CMS/HCC) (HCC) VARICELLA ZOSTER ANTIBODY, IGG Routine 07/29/2024 11:01 AM SENIOR MARKETING ENGINEER End stage renal disease (CMS/HCC) (HCC) URINALYSIS, MICROSCOPIC ONLY Routine 07/29/2024 10:53 AM SENIOR MARKETING ENGINEER End stage renal disease (CMS/HCC) (HCC) OXALATE Routine 07/29/2024 10:53 AM SENIOR MARKETING ENGINEER ESRD (end stage renal disease) (CMS/HCC) (HCC) URINALYSIS AND REFLEX TO MICROSCOPIC Routine 07/29/2024 10:53 AM SENIOR MARKETING ENGINEER End stage renal disease (CMS/HCC) (HCC) CARDIOLOGY DOCUMENT SCAN Routine 06/07/2024 11:10 AM CDT TSH Routine 10/27/2023 2:30 AM SENIOR MARKETING ENGINEER from Last 3 Months or Most Recently Relevant to Health Maintenance Results * HLA Solid Organ Typing Report (08/02/2024 9:04 AM SENIOR MARKETING ENGINEER) Jossie King MD LAB GENETIC TESTIN G Final Result * Six Minute Walk - (07/29/2024 2:46 PM SENIOR MARKETING ENGINEER) Anatomical Region Laterality Modality PFT Narrative 07/29/2024 3:52 PM SENIOR MARKETING ENGINEER Table formatting from the original result was not included. Davey Pickard V., REMOTE BROADCAST TECHNICIAN on 07/29/2024 ??2:45 PM Table formatting from the original note was not included. 6 MINUTE WALK RESULTS Name: Juvenal Daigle Jr : 1970 DOS: 07/29/2024 Diagnosis: ESRD/KTE REMOTE BROADCAST TECHNICIAN performed walk: Carmenza Pickard Rest: 1 min [...] Abdomen Pelvis WO Contrast (07/29/2024 12:43 PM SENIOR MARKETING ENGINEER) Anatomical Region Laterality Modality Body N/A Computed Tomogra phy 07/29/2024 1:04 PM SENIOR MARKETING ENGINEER Impressions 07/29/2024 1:04 PM SENIOR MARKETING ENGINEER 1. ??Moderate discontinuous atherosclerotic calcifications involve the [...] Teresa Rivera M.D. 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 Electronically signed by: Julio Pinedo M.D. Narrative 07/29/2024 12:59 PM SENIOR MARKETING ENGINEER EXAMINATION: XR ORTHOPANTOGRAM/PANOREX HISTORY: Kidney Transplant Evaluation [...] * Type and screen (07/29/2024 11:23 AM SENIOR MARKETING ENGINEER) Maribel, indirect Negative ABO Rh A Positive [facility] Blood 07/29/2024 11:2 3 AM SENIOR MARKETING ENGINEER 07/29/2024 11:43 AM SENIOR MARKETING ENGINEER Narrative [facility] - 07/29/2024 12:45 PM SENIOR MARKETING ENGINEER Please draw the ABO and the Type and Screen as two separate blood draws with each stamped with the two different times stamps as this is a regulatory requirement for this patient to be listed for Kidney Transplant. ??This lab is being obtained as part of a Kidney transplant evaluation, is time sensitive, and should only be drawn during the evaluation visit at [facility]. Has the patient had Daratumumab or Isatuximab in the past 6 months?->Unknown Jossie King MD LAB BLOOD BANK ERNESTO T ORDERABLES Final Result [facility] Department [place] [address] * ECG 12 lead (07/29/2024 11:14 AM SENIOR MARKETING ENGINEER) Ventricular Rate EKG/Min 117 BPM [facility] Atrial Rate 117 BPM [facility] ID-Interval (MSEC) 144 ms [facility] QRS-Interval (MSEC) 126 ms [facility] QT-Interval (MSEC) 366 ms [facility] QTc 510 ms [facility] R [place] -40 degrees [facility] T [place] 147 degrees [facility] Diagnosis Poor data quality, interpretation [...] SAL M.D ([id number]) on 07/29/2024 3:38:41 PM [facility] 07/29/2024 11:1 4 AM SENIOR MARKETING ENGINEER 07/29/2024 3:38 PM SENIOR MARKETING ENGINEER Jossie King MD ECG ORDERABLES Fi nal Result Performing Organization Address [facility] Co de Phone Number [facility] * ABO/Rh (07/29/2024 11:13 AM SENIOR MARKETING ENGINEER) ABO Rh A Positive Blood 07/29/2024 11:1 3 AM SENIOR MARKETING ENGINEER 07/29/2024 2:45 PM SENIOR MARKETING ENGINEER Jossie King MD LAB BLOOD BANK ERNESTO T ORDERABLES Final Result Performing Organization Address [facility] System/[facility] Co de Phone Number [facility] Department [place] [address] * LR HLA Typing (Class I and Class II) (07/29/2024 11:01 AM SENIOR MARKETING ENGINEER) r-SSO HISTOTRAC A First [place]lele A*03 HISTOTRAC [...] 07/30/24 [facility] Blood 07/29/2024 11:0 1 AM SENIOR MARKETING ENGINEER 08/02/2024 9:03 AM SENIOR MARKETING ENGINEER Narrative HISTOTRAC - 08/02/2024 9:03 AM [facility] DNA was extracted from whole blood or buccal cell specimens, and relevant genomic regions were amplified by polymerase chain reactions (PCR). HLA typing was performed on PCR amplicons using reverse sequence-specific oligonucleotide (r-SSO) and/or sequence-specific primers (SSP) based techniques. r-SSO and SSP are FDA approved as IVD tests and validated by the [facility]. Testing performed at the [facility], [address] [place] [address], 5th floor, [place], [address]. [facility] # [id number]. Dorothy Meade, Ph.D., Battery Plate Remover, HLA Laboratory Rell Samuels M.D., Ph.D., Dater Assembler, HLA Laboratory Licha Nieto, Ph.D., CLIA Dater Assembler, [facility] Current methodology comment last revised on 04/25/17. us Jossie King MD LAB BLOOD ORDERABL ES Final Result [facility] * Collection Task for HLA Typing 1 (07/29/2024 11:01 AM SENIOR MARKETING ENGINEER) Pathologist [facility] HLA Class I DNA (ABC) Recipient Received Blood 07/29/2024 11:0 1 AM SENIOR MARKETING ENGINEER 07/29/2024 11:56 AM SENIOR MARKETING ENGINEER Josise King MD LAB BLOOD ORDERABL ES Final Result Performing Organization Address [facility] de Phone Number [facility] [place] [address] * Collection Task for HLA Antibody Screen (07/29/2024 11:01 AM SENIOR MARKETING ENGINEER) [facility] HLA Antibody Screen By Single Antigen Received Blood 07/29/2024 11:0 1 AM SENIOR MARKETING ENGINEER 07/29/2024 11:56 AM SENIOR MARKETING ENGINEER Jossie King MD LAB BLOOD ORDERABL ES Final Result Performing Organization Address [facility] de Phone Number [facility] [place] [address] * Collection Task for HLA Typing 2, Patient (07/29/2024 11:01 AM SENIOR MARKETING ENGINEER) [facility] HLA Class II DNA (DR, DQ, DP) Recipient Received Blood 07/29/2024 11:0 1 AM SENIOR MARKETING ENGINEER 07/29/2024 11:56 AM SENIOR MARKETING ENGINEER Jossie King MD LAB BLOOD ORDERABL ES Final Result Performing Organization Address [facility] de Phone Number [facility] [place] [address] * (ABNORMAL) eGFR (07/29/2024 11:01 AM SENIOR MARKETING ENGINEER) [facility] eGFR 7(L) >=60 mL/min/1. 73 m2 Comment: [...] reviewed 2021. Blood 07/29/2024 11:0 1 AM SENIOR MARKETING ENGINEER 07/29/2024 11:33 AM SENIOR MARKETING ENGINEER us Jossie King MD LAB BLOOD ORDERABL ES Final Result [facility] Department of Laboratories [place], [place] [id number] * Differential, auto (07/29/2024 11:01 AM SENIOR MARKETING ENGINEER) Neutrophil abs 3.1 1.5 - 6.5 K/cumm Imm gran abs 0.0 0.0 - 0.1 K/cumm [facility] Lymphocyte abs 1.1 0.8 - 3.3 K/cumm [facility] Monocyte abs 0.7 0.2 - 0.8 K/cumm [facility] Eosinophil abs 0.2 0.0 - 0.5 K/cumm [facility] Basophil abs 0.0 0.0 - 0.1 K/cumm [facility] Neutrophil pct 60.3 % [facility] Comment: Interpretive Data Percent cell count reference ranges are not reported, since discordance with absolute values may lead to misinterpretation of CBC data. Current Interpretive Data was last revised on 2017. Imm gran pct 0.6 % [facility] Comment: Interpretive Data Percent cell count reference ranges are not reported, since discordance with absolute values may lead to misinterpretation of CBC data. Current Interpretive Data was last revised on 2017. Lymphocyte pct 21.4 % [facility] Comment: Interpretive Data Percent cell count reference ranges are not reported, since discordance with absolute values may lead to misinterpretation of CBC data. Current Interpretive Data was last revised on 2017. Monocyte pct 13.7 % [facility] Comment: Interpretive Data Percent cell count reference ranges are not reported, since discordance with absolute values may lead to misinterpretation of CBC data. Current Interpretive Data was last revised on 2017. Eosinophil pct 3.2 % [facility] Comment: Interpretive Data Percent cell count reference ranges are not reported, since discordance with absolute values may lead to misinterpretation of CBC data. Current Interpretive Data was last revised on 2017. Basophil pct 0.8 % [facility] Comment: Interpretive Data Percent cell count reference ranges are not reported, since discordance with absolute values may lead to misinterpretation of CBC data. Current Interpretive Data was last revised on 2017. Blood 07/29/2024 11:0 1 AM SENIOR MARKETING ENGINEER 07/29/2024 11:34 AM SENIOR MARKETING ENGINEER us Jossie King MD LAB BLOOD ORDERABL ES Final Result [facility] Department [place] [address] * PSA screen (07/29/2024 11:01 AM SENIOR MARKETING ENGINEER) PSA-Total 0.55 <=3.90 ng/mL Comment: Interpretive Data [...] revised 21. Blood 07/29/2024 11:0 1 AM SENIOR MARKETING ENGINEER 07/29/2024 11:33 AM SENIOR MARKETING ENGINEER Narrative [facility] - 07/29/2024 12:39 PM SENIOR MARKETING ENGINEER This lab is being obtained as part of a Kidney transplant evaluation, is time sensitive, and should only be drawn during the evaluation visit at [facility]. us Jossie King MD LAB BLOOD ORDERABL ES Final Result [facility] Department [place] [address] * (ABNORMAL) Iron profile w/ IBC (07/29/2024 11:01 AM SENIOR MARKETING ENGINEER) Iron 62 50 - 150 mcg/dL TIBC 208(L) 250 - 400 mcg/dL [facility] Transferrin saturation 30 20 - 50 % [facility] Blood 07/29/2024 11:0 1 AM SENIOR MARKETING ENGINEER 07/29/2024 11:33 AM SENIOR MARKETING ENGINEER Narrative [facility] - 07/29/2024 12:10 PM SENIOR MARKETING ENGINEER This lab is being obtained as part of a Kidney transplant evaluation, is time sensitive, and should only be drawn during the evaluation visit at [address] Jossie King MD LAB BLOOD ORDERABL ES Final Result Performing Organization Address [facility] de Phone Number [facility] [place] [address] * HIV 1/2 Antibody plus p24 Antigen Blood (07/29/2024 11:01 AM SENIOR MARKETING ENGINEER) Pathologist [facility] HIV 1/2 ab + p24 ag Nonreactive Nonreactive Comment:Nonreactive for HIV- 1 antigen and HIV-1/HIV-2 antibodies. No laboratory evidence of HIV infection. If acute HIV infection is suspected, consider testing for HIV-1 RNA. Current interpretive data was last revised on 22. Blood 07/29/2024 11:0 1 AM SENIOR MARKETING ENGINEER 07/29/2024 11:32 AM SENIOR MARKETING ENGINEER Narrative [facility] - 07/29/2024 12:13 PM SENIOR MARKETING ENGINEER This lab is being obtained as part of a Kidney transplant evaluation, is time sensitive, and should only be drawn during the evaluation visit at [address] Jossie King MD LAB MICROBIOLOGY - GENERAL ORDERABLES Final Result Performing Organization Address [facility] de Phone Number [facility] Department [place] [address] * (ABNORMAL) CMV, IgG Blood (07/29/2024 11:01 AM SENIOR MARKETING ENGINEER) Pathologist [facility] CMV IgG Positive( A) Negative Comment: Interpretive [...] CMV infection. Blood 07/29/2024 11:0 1 AM SENIOR MARKETING ENGINEER 07/29/2024 11:33 AM SENIOR MARKETING ENGINEER Narrative [facility] - 07/29/2024 1:44 PM SENIOR MARKETING ENGINEER This lab is being obtained as part of a Kidney transplant evaluation, is time sensitive, and should only be drawn during the evaluation visit at [facility] Lab. Jossie King MD LAB MICROBIOLOGY - GENERAL ORDERABLES Final Result [facility] Department [place] [address] * HLA Antibody Screen - SAB (Class I and Class II) (07/29/2024 11:01 AM SENIOR MARKETING ENGINEER) Class I Treatment EDTA [facility] Class I [...] DR52 [facility] Blood 07/29/2024 11:0 1 AM SENIOR MARKETING ENGINEER 08/02/2024 9:46 AM SENIOR MARKETING ENGINEER Narrative [facility] - 08/02/2024 9:46 AM SENIOR MARKETING ENGINEER Single-antigen HLA antibody screen is performed on serum samples using a method developed and validated by the [facility] laboratory based on an FDA-approved IVD kit (LABScreen Single-Antigen, [employer], [place], [place]). All patient serum samples are pretreated with EDTA before the screen to prevent complement interference. Additional serum treatments, such as adsorption and DTT treatment, may be performed as indicated. ??Interpretive comments: Low risk: MFI [id number]. Moderate risk: MFI [id number]. Increased risk: MFI >/= 5000. The presence [...] antigens to avoid. Testing performed at the [facility], [address] [place] [address], 5th floor, [place], [address]. [place] # [id number]. Dorothy Meade, Ph.D., Battery Plate Remover, HLA Laboratory Rell Samuels M.D., Ph.D., Dater Assembler, HLA Laboratory Licha Nieto, Ph.D., CLIA Dater Assembler, [facility] Current methodology and interpretive comments last revised on 09/15/2022. us Jossie King MD LAB BLOOD ORDERABL ES Final Result [facility] * (ABNORMAL) CBC with auto differential (07/29/2024 11:01 AM SENIOR MARKETING ENGINEER) WBC 5.1 3.8 - 9.9 K/cumm Hgb 11.5(L) 13.0 - 17.5 g/dL [facility] Hct 34.4(L) 38.9 - 50.3 % [facility] Plt 208 150 - 400 K/cumm [facility] MPV 10.8 9.1 - 12.3 fL [facility] RBC 3.76(L) 4.30 - 5.80 M/cumm [facility] MCV 91.5 81.3 - 96.4 fL [facility] MCH 30.6 27.1 - 33.3 pg [facility] MCHC 33.4 32.3 - 35.7 g/dL [facility] RDW CV 14.3 11.1 - 14.9 % [facility] RDW SD 47.9 35.7 - 48.1 fL [facility] NRBC abs 0.00 0.00 - 0.01 K/cumm [facility] Blood 07/29/2024 11:0 1 AM SENIOR MARKETING ENGINEER 07/29/2024 11:34 AM SENIOR MARKETING ENGINEER Narrative [facility] - 07/29/2024 11:45 AM SENIOR MARKETING ENGINEER This lab is being obtained as part of a Kidney transplant evaluation, is time sensitive, and should only be drawn during the evaluation visit at [address] Lab[address] Jossie King MD LAB BLOOD ORDERABL ES Final Result Performing Organization Address [facility] Co de Phone Number [facility] Department [place] [address] * Hepatitis C antibody Blood (07/29/2024 11:01 AM SENIOR MARKETING ENGINEER) Hep C Ab Nonreactive Nonreactive Comment:Antibodies to HCV no t detected. Does NOT exclude the possibility of recent exposure to HCV. Current interpretive data was last revised on 22 Blood 07/29/2024 11:0 1 AM SENIOR MARKETING ENGINEER 07/29/2024 11:32 AM SENIOR MARKETING ENGINEER Narrative [facility] - 07/29/2024 12:47 PM SENIOR MARKETING ENGINEER This lab is being obtained as part of a Kidney transplant evaluation, is time sensitive, and should only be drawn during the evaluation visit at [address] Jossie King MD LAB MICROBIOLOGY - GENERAL ORDERABLES Final Result Performing Organization Address City/[facility]/ZIP Co de Phone Number [facility] Department [place] [address] * (ABNORMAL) Madiha-Morris virus (EBV) antibody panel Blood (07/29/2024 11:01 AM SENIOR MARKETING ENGINEER) [facility] EBV nuclear Ab Positive(A) Negative Comment:Indicates the presen ce of detectable IgG antibody to EBV Nuclear Antigen. EBV VCA IgG Positive(A) Negative [facility] Comment:Indicates the presen ce of antibody; 90% of the adult population will have been infected with EBV sometime in the past. EBV VCA IgM Negative Negative [facility] Comment:No detectable IgM an tibody to EBV-VCA. A negative result indicates no current infection with EBV. If clinical suspicion of acute EBV infection is present, testing should be repeated after one week. EBV interp Past Infection [facility] Blood 07/29/2024 11:0 1 AM SENIOR MARKETING ENGINEER 07/29/2024 11:33 AM SENIOR MARKETING ENGINEER Narrative [facility] - 07/29/2024 1:43 PM SENIOR MARKETING ENGINEER This lab is being obtained as part of a Kidney transplant evaluation, is time sensitive, and should only be drawn during the evaluation visit at [address] Lab. Jossie King MD LAB MICROBIOLOGY - GENERAL ORDERABLES Final Result Performing Organization Address City/[facility]/ZIP Co de Phone Number [facility] Department [place] [address] * Hepatitis B core antibody, total Blood (07/29/2024 11:01 AM SENIOR MARKETING ENGINEER) [facility] Hep B core IgG/IgM Nonreactive Nonreactive Blood 07/29/2024 11:0 1 AM SENIOR MARKETING ENGINEER 07/29/2024 11:32 AM SENIOR MARKETING ENGINEER Narrative [facility] - 07/29/2024 12:47 PM SENIOR MARKETING ENGINEER This lab is being obtained as part of a Kidney transplant evaluation, is time sensitive, and should only be drawn during the evaluation visit at [address] Lab[address] Jossie King MD LAB MICROBIOLOGY - GENERAL ORDERABLES Final Result Performing Organization Address City/[facility]/ZIP Co de Phone Number [facility] [place] [address] * Protein, urine, random (07/29/2024 11:01 AM SENIOR MARKETING ENGINEER) Protein, ur, quant 121.2 mg/dL Comment: Interpretive Data No reference range established. Current interpretive data was last revised 2019. Urine 07/29/2024 11:0 1 AM SENIOR MARKETING ENGINEER 07/29/2024 11:32 AM SENIOR MARKETING ENGINEER Narrative [facility] - 07/29/2024 12:18 PM SENIOR MARKETING ENGINEER This lab is being obtained as part of a Kidney transplant evaluation, is time sensitive, and should only be drawn during the evaluation visit at [address] Lab. Jossie King MD LAB URINE ORDERABL ES Final Result Performing Organization Address [facility] [place] [address] * Creatinine, urine, random (07/29/2024 11:01 AM SENIOR MARKETING ENGINEER) Creatinine Ur 167.1 mg/dL Comment: Interpretive Data No reference range established. Current interpretive data was last revised 2019. Urine 07/29/2024 11:0 1 AM SENIOR MARKETING ENGINEER 07/29/2024 11:32 AM SENIOR MARKETING ENGINEER Narrative [facility] 07/29/2024 12:18 PM SENIOR MARKETING ENGINEER This lab is being obtained as part of a Kidney transplant evaluation, is time sensitive, and should only be drawn during the evaluation visit at [address] Lab. Jossie King MD LAB URINE ORDERABL ES Final Result Performing Organization Address [facility] Co de Phone Number [facility] [place] [address] * HSV 2 IgG Antibody Blood (07/29/2024 11:01 AM SENIOR MARKETING ENGINEER) Pathologist [facility] HSV 2 IgG Nonreactive Nonreactive Comment: Interpretive Data 1. Nonreactive: No detectable IgG antibody to HSV-2. 2. Equivocal: Presence or absence of detectable antibodies to HSV-2 cannot be determined and the test should be repeated. 3. Reactive: Indicates presence of detectable IgG antibody to HSV-2. Current interpretive data was last revised on 2022. Blood 07/29/2024 11:0 1 AM SENIOR MARKETING ENGINEER 07/29/2024 11:33 AM SENIOR MARKETING ENGINEER Narrative [facility] - 07/29/2024 1:44 PM SENIOR MARKETING ENGINEER This lab is being obtained as part of a Kidney transplant evaluation, is time sensitive, and should only be drawn during the evaluation visit at [address]. Jossie King MD LAB MICROBIOLOGY - GENERAL ORDERABLES Final Result Performing Organization Address [facility] de Phone Number [facility] [place] [address] * (ABNORMAL) HSV 1 IgG Antibody Blood (07/29/2024 11:01 AM SENIOR MARKETING ENGINEER) [facility] HSV 1 IgG Reactive( A) Nonreactive Comment: Interpretive Data 1. Nonreactive: No detectable IgG antibody to HSV-1. 2. Equivocal: Presence or absence of detectable antibodies to HSV-1 cannot be determined and the test should be repeated. 3. Reactive: Indicates presence of detectable IgG antibody to HSV-1. Current interpretive data was last revised on 2016. Blood 07/29/2024 11:0 1 AM SENIOR MARKETING ENGINEER 07/29/2024 11:33 AM SENIOR MARKETING ENGINEER Narrative [facility] - 07/29/2024 1:44 PM SENIOR MARKETING ENGINEER This lab is being obtained as part of a Kidney transplant evaluation, is time sensitive, and should only be drawn during the evaluation visit at [address] Jossie King MD LAB MICROBIOLOGY - GENERAL ORDERABLES Final Result Performing Organization Address [facility] Co de Phone Number [facility] [place] [address] * RPR Blood (07/29/2024 11:01 AM SENIOR MARKETING ENGINEER) Pathologist [facility] RPR Nonreactive Nonreactive Blood 07/29/2024 11:0 1 AM SENIOR MARKETING ENGINEER 07/29/2024 11:33 AM SENIOR MARKETING ENGINEER Narrative [facility] 07/29/2024 12:34 PM SENIOR MARKETING ENGINEER This lab is being obtained as part of a Kidney transplant evaluation, is time sensitive, and should only be drawn during the evaluation visit at [address] Lab. Jossie King MD LAB MICROBIOLOGY - GENERAL ORDERABLES Final Result Performing Organization Address [facility] de Phone Number [facility] [place] [address] * Hepatitis B surface antibody (immune status) Blood (07/29/2024 11:01 AM SENIOR MARKETING ENGINEER) [facility] HBsAb (immune status) Reactive Comment:This result is consi stent with immunity to Hepatitis B Virus when used in the setting of routine screening. Current interpretive data was last revised on 22 Blood 07/29/2024 11:0 1 AM SENIOR MARKETING ENGINEER 07/29/2024 11:32 AM SENIOR MARKETING ENGINEER Narrative [facility] 07/29/2024 12:47 PM SENIOR MARKETING ENGINEER This lab is being obtained as part of a Kidney transplant evaluation, is time sensitive, and should only be drawn during the evaluation visit at [address] Jossie King MD LAB MICROBIOLOGY - GENERAL ORDERABLES Final Result [facility] Department [place] [address] * Hepatitis B Surface Antigen Blood (07/29/2024 11:01 AM SENIOR MARKETING ENGINEER) [facility] HepBsAg Nonreactive Nonreactive Blood 07/29/2024 11:0 1 AM SENIOR MARKETING ENGINEER 07/29/2024 11:32 AM SENIOR MARKETING ENGINEER Narrative [facility] - 07/29/2024 12:47 PM SENIOR MARKETING ENGINEER This lab is being obtained as part of a Kidney transplant evaluation, is time sensitive, and should only be drawn during the evaluation visit at [address] Jossie King MD LAB MICROBIOLOGY - GENERAL ORDERABLES Final Result Performing Organization Address [facility] de Phone Number [facility] Department [place] [address] * (ABNORMAL) aPTT (07/29/2024 11:01 AM SENIOR MARKETING ENGINEER) aPTT 61(H) 28 - 38 sec Comment: Interpretive Data Heparin therapeutic range: 66.0 - 100.0 seconds. Range based on correlation with therapeutic heparin activity range of 0.3 - 0.7 Units/mL. Current interpretive data was last revised on 2023. Blood 07/29/2024 11:0 1 AM SENIOR MARKETING ENGINEER 07/29/2024 11:32 AM SENIOR MARKETING ENGINEER Narrative [facility] - 07/29/2024 11:42 AM SENIOR MARKETING ENGINEER This lab is being obtained as part of a Kidney transplant evaluation, is time sensitive, and should only be drawn during the evaluation visit at [address]. Jossie King MD LAB BLOOD ORDERABL ES Final Result Performing Organization Address [facility] de Phone Number [facility] [place] [address] * (ABNORMAL) Protime-INR (07/29/2024 11:01 AM SENIOR MARKETING ENGINEER) PT 50.6(H) 9.7 - 13.0 sec INR 4.54(H) 0.90 - 1.20 [facility] Comment: Interpretive data Oral anticoagulant therapeutic ranges: Venous thromboembolism prophylaxis or treatment: 2.0-3.0 CARDIOLOGY Standard range: 2.0-3.0 High-intensity range: 2.5-3.5 Refer to indication-specific guidelines for appropriate target ranges for prosthetic heart valve replacement. Current interpretive data was last revised on 2019. Blood 07/29/2024 11:0 1 AM SENIOR MARKETING ENGINEER 07/29/2024 11:32 AM SENIOR MARKETING ENGINEER Narrative [facility] - 07/29/2024 11:42 AM SENIOR MARKETING ENGINEER This lab is being obtained as part of a Kidney transplant evaluation, is time sensitive, and should only be drawn during the evaluation visit at [address] Jossie King MD LAB BLOOD ORDERABL ES Final Result Performing Organization Address [facility] de Phone Number [facility] Department [place] [address] * Varicella Zoster IgG antibody Blood (07/29/2024 11:01 AM SENIOR MARKETING ENGINEER) Pathologist [facility] VZV IgG Reactive Reactive Comment:Reactive: Results diego ggest response to immunization or prior exposure to the virus. Blood 07/29/2024 11:0 1 AM SENIOR MARKETING ENGINEER 07/29/2024 11:33 AM SENIOR MARKETING ENGINEER Narrative [facility] 07/29/2024 1:45 PM SENIOR MARKETING ENGINEER This lab is being obtained as part of a Kidney transplant evaluation, is time sensitive, and should only be drawn during the evaluation visit at [address] Jossie King MD LAB MICROBIOLOGY - GENERAL ORDERABLES Final Result Performing Organization Address [facility] de Phone Number [facility] Department [place] [address] * (ABNORMAL) Uric acid (07/29/2024 11:01 AM SENIOR MARKETING ENGINEER) Pathologist [facility] Uric acid 2.0(L) 3.0 - 8.0 mg/dL Blood 07/29/2024 11:0 1 AM SENIOR MARKETING ENGINEER 07/29/2024 11:33 AM SENIOR MARKETING ENGINEER Narrative [facility] 07/29/2024 12:10 PM SENIOR MARKETING ENGINEER This lab is being obtained as part of a Kidney transplant evaluation, is time sensitive, and should only be drawn during the evaluation visit at [address] Jossie King MD LAB BLOOD ORDERABL ES Final Result Performing Organization Address City/State/[facility] Co de Phone Number [facility] [place] [address] * (ABNORMAL) Phosphorus (07/29/2024 11:01 AM SENIOR MARKETING ENGINEER) Pathologist [facility] Phosphorus, pl 5.1(H) 2.3 - 4.5 mg/dL Blood 07/29/2024 11:0 1 AM SENIOR MARKETING ENGINEER 07/29/2024 11:33 AM SENIOR MARKETING ENGINEER Narrative [facility] - 07/29/2024 12:10 PM SENIOR MARKETING ENGINEER This lab is being obtained as part of a Kidney transplant evaluation, is time sensitive, and should only be drawn during the evaluation visit at [address] Lab[address] Jossie King MD LAB BLOOD ORDERABL ES Final Result Performing Organization Address [facility] Co de Phone Number [facility] [place] [address] * (ABNORMAL) PTH (07/29/2024 11:01 AM SENIOR MARKETING ENGINEER) [facility] PTH 444(H) 15 - 65 pg/mL Blood 07/29/2024 11:0 1 AM SENIOR MARKETING ENGINEER 07/29/2024 11:34 AM SENIOR MARKETING ENGINEER Narrative [facility] - 07/29/2024 12:02 PM SENIOR MARKETING ENGINEER This lab is being obtained as part of a Kidney transplant evaluation, is time sensitive, and should only be drawn during the evaluation visit at [address] Jossie King MD LAB BLOOD ORDERABL ES Final Result Performing Organization Address City/[facility] Co de Phone Number [facility] [place] [address] * (ABNORMAL) Hemoglobin A1c (07/29/2024 11:01 AM SENIOR MARKETING ENGINEER) [facility] Hgb A1C 9.0(H) 4.0 - 5.6 % Estimated Average Glucose 212 mg/dL [facility] Comment: The ADA recommends reporting an estimated Average Glucose (eAG) with all Hemoglobin A1c results using the equation derived from a study of 507 normal and diabetic adults. ??Minority populations were underrepresented and children were not included. ?? (Diabetes Care 2020; 43(S1): S66-S76). ??The eAG is not equivalent to a fasting glucose. Blood 07/29/2024 11:0 1 AM SENIOR MARKETING ENGINEER 07/29/2024 11:34 AM SENIOR MARKETING ENGINEER Narrative [facility] - 07/29/2024 11:53 AM SENIOR MARKETING ENGINEER This lab is being obtained as part of a Kidney transplant evaluation, is time sensitive, and should only be drawn during the evaluation visit at [address] Lab[address] Jossie King MD LAB BLOOD ORDERABL ES Final Result Performing Organization Address City/[facility] Co de Phone Number [facility] Department [place] [address] * Gamma GT (07/29/2024 11:01 AM SENIOR MARKETING ENGINEER) GGT 22 10 - 50 Units/L Blood 07/29/2024 11:0 1 AM SENIOR MARKETING ENGINEER 07/29/2024 11:33 AM SENIOR MARKETING ENGINEER Narrative [facility] - 07/29/2024 12:40 PM SENIOR MARKETING ENGINEER This lab is being obtained as part of a Kidney transplant evaluation, is time sensitive, and should only be drawn during the evaluation visit at [address] Lab. Jossie King MD LAB BLOOD ORDERABL ES Final Result Performing Organization Address City/[facility]/ZIP Co de Phone Number [facility] [place] [address] * (ABNORMAL) Ferritin (07/29/2024 11:01 AM SENIOR MARKETING ENGINEER) Ferritin 761(H) 30 - 400 ng/mL Blood 07/29/2024 11:0 1 AM SENIOR MARKETING ENGINEER 07/29/2024 11:33 AM SENIOR MARKETING ENGINEER Narrative [facility] - 07/29/2024 12:10 PM SENIOR MARKETING ENGINEER This lab is being obtained as part of a Kidney transplant evaluation, is time sensitive, and should only be drawn during the evaluation visit at [facility] Lab. us Jossie King MD LAB BLOOD ORDERABL ES Final Result [facility] Department [place] [address] * (ABNORMAL) Lipid panel (07/29/2024 11:01 AM SENIOR MARKETING ENGINEER) [facility] Signature Cholesterol 114 30 - 199 [...] revised on 2018. Triglycerides 66 <=149 mg/dL [facility] Comment: Interpretive Data Ages < or = [...] revised on 2018. HDL 29(L) >=40 mg/dL [facility] Comment: Interpretive Data Ages < or = [...] on 2018. LDL, calculated 71 <=129 mg/dL [facility] Comment: Interpretive Data Ages < or = [...] revised on 2024. Non-HDL Cholesterol 85 mg/dL [facility] Comment: Interpretive Data Ages < or = [...] last revised on 2018. Chol/HDL ratio 4 [facility] Blood 07/29/2024 11:0 1 AM SENIOR MARKETING ENGINEER 07/29/2024 11:33 AM SENIOR MARKETING ENGINEER Narrative [facility] - 07/29/2024 12:10 PM SENIOR MARKETING ENGINEER This lab is being obtained as part of a Kidney transplant evaluation, is time sensitive, and should only be drawn during the evaluation visit at [facility] Lab. Jossie King MD LAB BLOOD ORDERABL ES Final Result [facility] Department [place] [address] * (ABNORMAL) Comprehensive metabolic panel (07/29/2024 11:01 AM SENIOR MARKETING ENGINEER) Sodium 136 135 - 145 mmol/L Potassium, pl 4.6 3.3 - 4.9 mmol/L [facility] Chloride 93(L) 97 - 110 mmol/L [facility] CO2 26 22 - 32 mmol/L [facility] Anion gap 17(H) 2 - 15 mmol/L [facility] BUN 65(H) 6 - 25 mg/dL [facility] Creatinine 8.07(H) 0.80 - 1.30 mg/dL [facility] Glucose 280(H) 70 - 199 mg/dL [facility] Comment: Interpretive Data Fasting glucose >/= 126 [...] 2022. Calcium 9.4 8.5 - 10.3 mg/dL [facility] Bilirubin, total 0.3 0.1 - 1.2 mg/dL [facility] Protein, pl 7.2 6.5 - 8.5 g/dL [facility] Albumin 3.8 3.5 - 5.0 g/dL [facility] Alk phos 99 40 - 130 Units/L [facility] ALT 30 7 - 55 Units/L [facility] AST 31 10 - 50 Units/L [facility] Blood 07/29/2024 11:0 1 AM SENIOR MARKETING ENGINEER 07/29/2024 11:33 AM SENIOR MARKETING ENGINEER Narrative [facility] - 07/29/2024 12:10 PM SENIOR MARKETING ENGINEER This lab is being obtained as part of a Kidney transplant evaluation, is time sensitive, and should only be drawn during the evaluation visit at [facility] Lab. us Jossie King MD LAB BLOOD ORDERABL ES Final Result [facility] Department [place] [address] * (ABNORMAL) Oxalate (oxalic acid) (07/29/2024 10:53 AM SENIOR MARKETING ENGINEER) Oxalate 12.3(H) <=2.0 mcmol/L [facility] Comment: High value suggestive of Primary Hyperoxaluria. However, if the patient has chronic kidney disease (GFR<30 mL/min/1.73m2), plasma oxalate values up to 30 mcmol/L can be normal. The [facility] Hyperoxaluria Center is available to review case details and answer any questions regarding interpretation ([email or web address] [phone]) ADDITIONAL INFORMATION This test has been modified from the manager food safety's instructions. Its performance characteristics were determined by [facility] in a manner consistent with CLIA requirements. This test has not been cleared or approved by the U.S. Food and Drug Administration. Test Performed by: [place] [address] Helper Maintenance Cleaning: Jairo Higgins Ph.D.; CLIA# [id number] Blood 07/29/2024 10:5 3 AM SENIOR MARKETING ENGINEER 07/29/2024 11:37 AM SENIOR MARKETING ENGINEER us Jossie King MD LAB BLOOD ORDERABL ES Final Result [facility] Department [place] [address] [place] [facility] * (ABNORMAL) Urinalysis reflex to microscopic (07/29/2024 10:53 AM SENIOR MARKETING ENGINEER) Color, ur Yellow Yellow Clarity, ur Cloudy(A) Clear [facility] Specific gravity, ur 1.022 1.003 - 1.030 [facility] pH, urine 6.0 [facility] Comment: Interpretive Data ? Urine pH is affected by diet, medications, systemic acid-base disturbances, and renal tubular function. ??pH may affect urinary stone formation. ??For example, urine pH below 6.0 may help reduce the tendency for calcium phosphate stones and pH greater than 6.0 may reduce the tendency for uric acid stone formation. Source: [facility] [employer] Current Interpretive Data was last revised on 2017 Protein, ur ql 2+(A) Negative [facility] Glucose, ur ql 4+(A) Negative [facility] Ketones, ur Negative Negative [facility] Bilirubin, ur Negative Negative [facility] Blood, ur 3+(A) Negative [facility] Urobilinogen, ur <2.0 <2.0 mg/dL [facility] Nitrite, ur Negative Negative [facility] Leukocyte esterase, ur 2+(A) Negative [facility] UA reflex comment Reflex to microscopic UA will be performed. [facility] Urine 07/29/2024 10:5 3 AM SENIOR MARKETING ENGINEER 07/29/2024 11:27 AM SENIOR MARKETING ENGINEER Narrative [facility] - 07/29/2024 11:29 AM SENIOR MARKETING ENGINEER This lab is being obtained as part of a Kidney transplant evaluation, is time sensitive, and should only be drawn during the evaluation visit at [facility]. Jossie King MD LAB URINE ORDERABL ES Final Result Performing Organization Address [facility] Co de Phone Number [facility] [place] [address] * (ABNORMAL) Urinalysis, microscopic only (07/29/2024 10:53 AM SENIOR MARKETING ENGINEER) WBC, ur 21-50(A) 0 - 5 /HPF RBC, ur >50(A) 0 - 2 /HPF [facility] Epithelial cells, squamous, ur 1-5 0 - 5 /HPF [facility] Bacteria, ur Trace(A) [facility] Mucous, ur Present(A) [facility] Hyaline casts, ur 1-5 0 - 10 /LPF [facility] Urine 07/29/2024 10:5 3 AM SENIOR MARKETING ENGINEER 07/29/2024 11:27 AM SENIOR MARKETING ENGINEER Jossie King MD LAB URINE ORDERABL ES Final Result Performing Organization Address [facility]/ZIP Co de Phone Number [facility] Department [place] [address] * Cardiology Document Scan (06/07/2024 11:10 AM CDT) Anatomical Region Laterality Modality Other us Karen Barnes NP CV CARDIAC SERVICES PROCEDUR ES Final Result * (ABNORMAL) TSH (10/27/2023 2:30 AM SENIOR MARKETING ENGINEER) Thyroid Stimulating Hormone 13.20(H) 0.30 - 4.20 mcIUnit/mL Blood 10/27/2023 2:30 AM SENIOR MARKETING ENGINEER 10/27/2023 2:42 AM SENIOR MARKETING ENGINEER us Lorne Mcnulty MD LAB BLOOD ORDERABLES Final Result [facility] [address] [place] [address] from Last 3 Months or Most Recently Relevant to Health Maintenance Insurance [facility] MEDICARE SOLUTIONS IDPA MEDICARE SOLUTIONS TRANSPLANT OPTUM MEDICARE RISK IDPA TRANSPLANT [employer] MEDICARE RISK IDPA Advance Directives For more information, please contact: [phone] * Full Code (Latest Code Status on File) Date Activated Date Inactivated Comments 10/13/2023 11:32 PM 11/03/2023 11:42 PM * Full Code Date Activated Date Inactivated Comments 06/05/2022 6:17 AM 06/29/2022 6:20 PM * Full Code Date Activated Date Inactivated Comments 06/05/2022 4:43 AM 06/05/2022 4:43 AM * Full Code Date Activated Date Inactivated Comments 06/04/2022 9:55 PM 06/05/2022 4:43 AM Care Teams Change Advisor Relationship Specialty Start Date End Date Aditya Castro MD [address] [place] [address] PCP - General 10/17/19 Alondra Lambert, RN [address] [address] Loan Adviser 03/06/24 Hamlet Ortega Jr., MD [address] [place] [address] Consulting Physician Cardiovascular Disease 05/10/24 Leandro Reyes MD [address] [facility] 1 [place] [address] Consulting Physician Nephrology 07/30/24
--- OUTSIDE RECORDS SUMMARY | 2024-08-24 04:38 | XMS_ITS | Encounter Summary ---
Author Organization [facility] Healthcare Address [address] [place] [address] Care Team Providers Care Resolution Analyst Name Role Phone Aditya Castro MD Primary Care Provider [phone] Alondra Lambert RN Unavailable [phone] Shannon Brock MD, Hamlet Gordon Unavailable Encounter Details Date Type Department Care Team (Late st Contact Info) Description 07/29/2024 9:00 AM IMAGING SPECIALIST Social Work [facility], 8th Floor, [place] [address] Social History Tobacco Use Types Packs/Day Years [...] materials from doctor or pharmacy Never 12/01/2023 [facility] Utilities Answer Date Recorded In the past [...] How often do you attend yazidism or sabianist serv ices? Never 08/01/2024 Do you belong [...] a nursing home (including now)? No 10/16/2023 Housing Stability Vital [...] time in the past 12 m [facility], were you homeless or living in a nursing home (including now)? No 08/01/2024 Personal Safety Answer Date Recorded Have you ever been in or are you currently in a harmful physical or emotional relationship or is someone making you feel afraid or unsafe? 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 Male 3:42 AM IMAGING SPECIALIST Gender Identity Not on file Sexual [...] sibling Marital Status: Do you have a Mandaeism Preference or Affiliation?: Yes Preference/Affiliation: Adventist Current Transportation: Own vehicle Miles from [facility]: 24 Living Arrangements: Children Type of Residence: Private residence Address: [place] [address] How many stairs inside?: 0 How many stairs outside?: 0 Summary of Support System: Pt is currently residing with his son, Juno (19), in a home that [place]rent in [place], [place], which is approximately [address] [place] [address] hospital. Pt is and has two children. His daughter Og (23) lives about 15 minutes away from the patient. She is a clinical nursing professor. His son is still in high school. [...] does not have advance directive on file [facility]. SW provided paperwork and he will [...] which he initiated October 16, 2019 with [employer]. He has his labs drawn there at [facility] and uses the [facility]. He is able to drive and transports himself to medical appointments independently. Patient also has a Medicaid funded donation worker who comes three days per week to assist with tasks at home. 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 He states that he is notpaying any premiums for his Medicare and has not had any concerns regarding his insurance coverage.He does not plan to make any changes to coverage in the year ahead. [facility]acy: [facility] Social work defers to the financial services rep for a review of coverage. Substance Use [...] Disorder?: No Legal History Prior Arrest/Incarceration: No Probation/Roots: No Warrants/Charges/Cases: No Valid Spike Maker???s License: Yes Summary of Legal History: The [...] Integrated Psychosocial Assessment for Transplant (SIPAT): The [place] Integrated Psychosocial Assessment for Transplant (SIPAT) is [...] considered including the clinical judgement of the social worker psychiatric. SIPAT Total Score: 18 SIPAT Score Interpretation [...] Completed by: Sera Callahan LCSW, OSW-C Transplant Retrofit Installer This note was written as a communication tool between healthcare providers and may contain technical language, terminology, use of tools and abbreviations that are difficult to interpret without advanced training. If you have questions or concerns regarding what is written in this note, please request to speak with the primary medical team taking care of you or your family member. ING SPECIALIST documented in this encounter Plan of Treatment Not on file documented as of this encounter Visit Diagnoses Not on filedocumented in this encounter Care Teams Resolution Analyst Relationship Specialty Start Date End Date Aditya Castro MD [address] [place] [place] [address] PCP - General 10/17/19 Alondra Lambert, RN [address] [facility] [address] [place] [address] International Nurse 03/06/24 Hamlet Ortega Jr., MD [address] [place] [address] Consulting Physician Cardiovascular Disease 05/10/24 documented as of this encounter
--- OUTSIDE RECORDS SUMMARY | 2024-08-24 04:38 | XMS_ITS | Encounter Summary ---
Author Organization [facility] Healthcare Address [address] [place] [address] Care Team Providers Care Mud Mixer Operator Name Role Phone Aditya Castro MD Primary Care Provider [phone] Alondra Lambert RN Unavailable [phone] Shannon Brock MD, Hamlet Gordillo. Unavailable [phone] Reason for Referral * Diagnostic Imaging (Routine) - Pending Review Specialty Diagnoses / Procedures Referred By Contac t Referred To Contact Diagnoses End stage renal disease (CMS/HCC) (HCC) Procedures XR Orthopantogram Panorex Jossie King MD [address] [place] [address] Phone: tel: fax: [facility] 1 [place] [address] Referral ID Status Reason Start Date Expiration Date V isits Requested Visits Authorized [id number] Pending Review 05/10/2024 06/09/2025 1 1 WASH ATTENDANT Reason for Visit * Diagnostic Imaging (Routine) - Pending Review Specialty Diagnoses / Procedures Referred By Contac t Referred To Contact Diagnoses End stage renal disease (CMS/HCC) (HCC) Procedures XR Orthopantogram Panorex Jossie King MD [address] [place] [address] Phone: tel: fax: [facility] 1 [facility] [place] [address] Referral ID Status Reason Start Date Expiration Date V isits Requested Visits Authorized [id number] Pending Review 05/10/2024 06/09/2025 1 1 Encounter Details Date Type Department Care Team (Latest Contact Info) Description 07/29/2024 10:55 AM CAR WASH ATTENDANT - 07/29/2024 11:59 PM CAR WASH ATTENDANT Hospital Encounter [facility] [address] [place] [id number] End stage renal disease (CMS/HCC) (HCC) Discharge [...] materials from doctor or pharmacy Never 12/01/2023 [facility] Utilities Answer Date Recorded In the past 12 months has e [employer], gas, oil, or water [employer] threatened to shut off services in your [...] How often do you attend chur or church services? 1 to 4 times [...] place to sleep or slept in a halfway (including now)? No 10/16/2023 Personal Safety Answer Date Recorded Have you ever been in or are you currently in a harmful physical or emotional relationship or is someone making you feel afraid or unsafe? 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 Male 3:42 AM CAR WASH ATTENDANT Gender Identity Not on file Sexual Orientation [...] PUMP: Continue Omnipod 5 insulin pump with Hubspan G6 CGM at home settings: TIME BASAL [...] 1 tablet (25 mcg total) by mouth metal drilling machine operator before breakfast 30 tablet 1 [...] (20 mg total) by mouth daily peg 374-iqtzlkihrxep-nuy cerin (ARTIFICAL TEARS) 1-0.2-0.2 % ophthalmic solution [...] 500 mg tablet warfarin (COUMADIN) 2 mg tabletIndications:Ms chanical Valve Thromboembolism Prophylaxis Take 4 mg [...] Read Routine (OP Routine) 07/29/2024 11:44 AM CAR WASH ATTENDANT End stage renal disease (CMS/[facility]) ([facility]) documented in this encounter Results * XR Orthopantogram Panorex (07/29/2024 11:44 AM CAR WASH ATTENDANT) Anatomical Region Laterality Modality Head and Neck N/A Panoramic X-Ray 07/29/2024 12:5 9 PM CAR WASH ATTENDANT Impressions 07/29/2024 12:59 PM CAR WASH ATTENDANT 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 Electronically signed by: Julio Pinedo M.D. Narrative 07/29/2024 12:59 PM CAR WASH ATTENDANT EXAMINATION: XR ORTHOPANTOGRAM/PANOREX HISTORY: Kidney Transplant Evaluation [...] disease documented in this encounter Care Teams Mud Mixer Operator Relationship Specialty Start Date End Date Aditya Castro MD [address] [place] [address] PCP - General 10/17/19 Alondra Lambert, RN [address] [facility] [address] [place] [address] [employer] 03/06/24 Hamlet Ortega Jr., MD [address] [place] [address] Consulting Physician Cardiovascular Disease 05/10/24 documented as of this encounter
--- OUTSIDE RECORDS SUMMARY | 2024-08-24 04:38 | XMS_ITS | Encounter Summary ---
Author Organization [facility] Healthcare Address [address] [place] [address] Care Team Providers Care Senior Instructor Name Role Phone Aditya Castro MD Primary Care Provider [phone] Alondra Lambert RN Unavailable [phone] Shannon Brock MD, Hamlet Gordillo. Unavailable [phone] Reason for Referral * Diagnostic Imaging (Routine) - Pending Review Specialty Diagnoses / Procedures Referred By Contac t Referred To Contact Radiology Diagnoses End stage renal disease (CMS/HCC) (HCC) Procedures CT Abdomen Pelvis WO Contrast Jossie King MD [address] [place] [address] Phone: tel: fax: [facility] [address] [place] [address] Referral ID Status Reason Start Date Expiration Date V isits Requested Visits Authorized [id number] Pending Review 05/10/2024 06/09/2025 1 1 MIXER ASSEMBLER Reason for Visit * Diagnostic Imaging (Routine) - Pending Review Specialty Diagnoses / Procedures Referred By Contac t Referred To Contact Radiology Diagnoses End stage renal disease (CMS/HCC) (HCC) Procedures CT Abdomen Pelvis WO Contrast Jossie King MD [address] [place] [address] Phone: tel: fax: [facility] [address] [facility] [place] [address] Referral ID Status Reason Start Date Expiration Date V isits Requested Visits Authorized [id number] Pending Review 05/10/2024 06/09/2025 1 1 Encounter Details Date Type Department Care Team (Latest Contact Info) Description 07/29/2024 10:58 AM FOOD MIXER ASSEMBLER - 07/29/2024 11:59 PM FOOD MIXER ASSEMBLER Hospital Encounter [facility] [address] [place] [id number] End stage renal disease (CMS/HCC) (HCC) Discharge [...] Never 12/01/2023 [facility] Utilities Answer Date Recorded In the past 12 months has e [employer], gas, oil, or water [employer] threatened to shut off services in your [...] any clubs o r organizations such as yarsanism groups, unions, fraternal or athletic groups, or [...] on file Legal Sex Male 3:42 AM FOOD MIXER ASSEMBLER Gender Identity Not on file Sexual Orientation [...] PUMP: Continue Omnipod 5 insulin pump with [email or web address] G6 CGM at home settings: TIME BASAL [...] 1 tablet (25 mcg total) by mouth blood bank worker before breakfast 30 tablet 1 11/04/2023 Linzess [...] (20 mg total) by mouth daily peg [id number]-stc cerin (ARTIFICAL TEARS) 1-0.2-0.2 % ophthalmic solution [...] 500 mg tablet warfarin (COUMADIN) 2 mg tabletIndications:Mo chanical Valve Thromboembolism Prophylaxis Take 4 mg [...] Read Routine (OP Routine) 07/29/2024 12:43 PM FOOD MIXER ASSEMBLER End stage renal disease (CMS/HCC) (HCC) documented in this encounter Results * CT Abdomen Pelvis WO Contrast (07/29/2024 12:43 PM FOOD MIXER ASSEMBLER) Anatomical Region Laterality Modality Body N/A Computed Tomogra phy 07/29/2024 1:04 PM FOOD MIXER ASSEMBLER Impressions 07/29/2024 1:04 PM FOOD MIXER ASSEMBLER 1. ??Moderate discontinuous atherosclerotic calcifications involve the [...] Teresa Rivera M.D. Narrative 07/29/2024 1:04 PM FOOD MIXER ASSEMBLER EXAMINATION: ??Computed tomography of the abdomen and [...] Electronically signed by: Maria Teresa Rivera M.D. [facility] Jaylen King MD IMG CT PROCEDURES Final Result documented in this encounter Visit Diagnoses Diagnosis End stage renal disease (CMS/HCC) (HCC) End stage renal disease documented in this encounter Care Teams Senior Instructor Relationship Specialty Start Date End Date Aditya Castro MD [address] [facility] [place] [address] PCP - General 10/17/19 Alondra Lambert RN [address] [facility] [address] [place] [address] Automation Qa Tester 03/06/24 Hamlet Ortega Jr., MD [address] [place] [address] Consulting Physician Cardiovascular Disease 05/10/24 documented as of this encounter
--- OUTSIDE RECORDS SUMMARY | 2024-08-24 04:38 | XMS_ITS | Encounter Summary ---
Author Organization [facility] Healthcare Address [address] [place] [address] Care Team Providers Care Transfusion Aide Name Role Phone Aditya Castro MD Primary Care Provider [phone] Alondra Lambert RN Unavailable [phone] Shannon Brock MD, Hamlet Gordon Unavailable [phone] Encounter Details Date Type Department Care Team (Late st Contact Info) Description 07/29/2024 Telephone [facility] Transplant Kidney [address] [facility] [address] [phone] [place], [place] [id number] Alondra Lambert, RN [address] [facility] [address] [place] [id number] Social History Tobacco Use Types Packs/Day Years [...] materials from doctor or pharmacy Never 12/01/2023 [facility] Utilities Answer Date Recorded In the [...] often do you attend chur ch or baptism services? 1 to 4 times per year [...] place to sleep or slept in a jail (including now)? No 10/16/2023 Personal Safety Answer Date Recorded Have you ever been in or are you currently in a harmful physical or emotional relationship or is someone making you feel afraid or unsafe? 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 Male 3:42 AM LABORATORY TECH Gender Identity Not on file Sexual Orientation [...] 10. He is heading this way now. RATORY TECH documented in this encounter Plan of Treatment Not on file documented as of this encounter Visit Diagnoses Not on filedocumented in this encounter Care Teams Transfusion Aide Relationship Specialty Start Date End Date Aditya Castro MD [address] [facility] [place] [address] PCP - General 10/17/19 Alondra Lambert, RN [address] [facility] [address] [place] [address] Tanning Drum Operator 03/06/24 Hamlet Ortega Jr., MD [address] [place] [address] Consulting Physician Cardiovascular Disease 05/10/24 documented as of this encounter
--- OUTSIDE RECORDS SUMMARY | 2024-08-24 04:38 | XMS_ITS | Encounter Summary ---
Author Organization [facility] Healthcare Address [address] [place] [address] Care Team Providers Care Aws Architect Name Role Phone Aditya Castro MD Primary Care Provider Alondra Lambert RN Unavailable [phone] Shannon Brock MD, Hamlet P. Unavailable [phone] Reason for Referral * Cardiology (Routine) - Pending Review Specialty Diagnoses / Procedures Referred By Contac t Referred To Contact Diagnoses End stage renal disease (CMS/HCC) (HCC) Procedures ECG 12 lead Jossie King MD [address] [place] [address] Phone: tel: fax: [facility] [address] [place] [address] Referral ID Status Reason Start Date Expiration Date V isits Requested Visits Authorized [id number] Pending Review 05/10/2024 06/09/2025 1 1 ER TIRE AND TUBES SUPERVISOR Reason for Visit * Cardiology (Routine) - Pending Review Specialty Diagnoses / Procedures Referred By Contac t Referred To Contact Diagnoses End stage renal disease (CMS/HCC) (HCC) Procedures ECG 12 lead Jossie King MD [address] [place] [address] Phone: tel: fax: [facility] [address] [facility] [place] [address] Referral ID Status Reason Start Date Expiration Date V isits Requested Visits Authorized [id number] Pending Review 05/10/2024 06/09/2025 1 1 Encounter Details Date Type Department Care Team (Latest Contact Info) Description 07/29/2024 10:53 AM RUBBER TIRE AND TUBES SUPERVISOR - 07/29/2024 11:59 PM RUBBER TIRE AND TUBES SUPERVISOR Hospital Encounter [facility] [address] [place] [address] End stage renal disease (CMS/HCC) (HCC) Discharge [...] doctor or pharmacy Never 12/01/2023 [facility] Utilities Answer Date Recorded In the past 12 months has e [employer], gas, oil, or water [employer] threatened to shut off services in your [...] often do you attend chur ch or sikh services? 1 to 4 times per year 10/16/2023 Do you belong to any clubs o r organizations such as mosque groups, unions, fraternal or athletic groups, or [...] on file Legal Sex Male 3:42 AM RUBBER TIRE AND TUBES SUPERVISOR Gender Identity Not on file Sexual [...] PUMP: Continue Omnipod 5 insulin pump with [employer] G6 CGM at home settings: TIME BASAL [...] 1 tablet (25 mcg total) by mouth casserole preparer before breakfast 30 tablet 1 11/04/2023 Linzess [...] (20 mg total) by mouth daily peg [id number]-yfpsjvxpzsho-hkh cerin (ARTIFICAL TEARS) 1-0.2-0.2 % ophthalmic solution [...] 500 mg tablet warfarin (COUMADIN) 2 mg tabletIndications:Al chanical Valve Thromboembolism Prophylaxis Take 4 mg [...] Comments ECG 12-LEAD Routine 07/29/2024 11:14 AM RUBBER TIRE AND TUBES SUPERVISOR End stage renal disease (CMS/HCC) (HCC) documented in this encounter Results * ECG 12 lead (07/29/2024 11:14 AM [facility]) Ventricular Rate EKG/Min 117 BPM [facility] Atrial Rate 117 BPM [facility] AK-Interval (MSEC) 144 ms [facility] QRS-Interval (MSEC) 126 ms [facility] QT-Interval (MSEC) 366 ms [facility] QTc 510 ms [facility] R Jber -40 degrees [facility] T Jber 147 degrees [facility] Diagnosis Poor data quality, interpretation [...] SAL M.D ([id number]) on 07/29/2024 3:38:41 PM [facility] 07/29/2024 11:1 4 AM RUBBER TIRE AND TUBES SUPERVISOR 07/29/2024 3:38 PM RUBBER TIRE AND TUBES SUPERVISOR Jossie King MD ECG ORDERABLES Fi nal Result [facility] documented in this encounter Visit Diagnoses Diagnosis End stage renal disease (CMS/HCC) (HCC) End stage renal disease documented in this encounter Care Teams Aws Architect Relationship Specialty Start Date End Date Aditya Castro MD [address] [facility] [place] [address] PCP - General 10/17/19 Alondra Lambert, RN [address] [address] Jewelry Drill Operator 03/06/24 Hamlet Ortega Jr., MD [address] [place] [address] Consulting Physician Cardiovascular Disease 05/10/24 documented as of this encounter
--- OUTSIDE RECORDS SUMMARY | 2024-08-24 04:38 | XMS_ITS | Encounter Summary ---
Author Organization [facility] Healthcare Address [address] [place] [address] Care Team Providers Care Behavioral Technician Name Role Phone Aditya Castro MD Primary Care Provider [phone] Alondra Lambert RN Unavailable [phone] Shannon Brock MD, [place] Gordon Unavailable [phone] Encounter Details Date Type Department Care Team (Late st Contact Info) Description 07/29/2024 1:15 PM PERFUMER Lab [facility] Advanced Medicine [facility] Advanced Medicine ([facility]) [address] [place] [phone] End stage renal disease (CMS/HCC) (HCC); ESRD (end stage renal disease) (CMS/HCC) ([facility]) Social History Tobacco Use Types Packs/Day Years [...] materials from doctor or pharmacy Never 12/01/2023 [facility] Utilities Answer Date Recorded In [...] week 08/01/2024 How often do you attend restorationist or yazidi serv ices? Never 08/01/2024 Do you belong to any clubs o r organizations such as restorationist groups, unions, fraternal or athletic groups, or [...] in a jail (including now)? No 10/16/2023 Housing Stability Vital Sign Answer Rubens e Recorded In the last 12 months, was t here a time when you were not able to pay the mortgage or rent on time? No 08/01/2024 In the past 12 months, how m any times have you moved where you were living? 1 08/01/2024 At any time in the past 12 m [facility], were you homeless or living in a jail (including now)? No 08/01/2024 Personal Safety Answer Date Recorded Have you ever been in or are you currently in a harmful physical or emotional relationship or is someone making you feel afraid or unsafe? 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 Male 3:42 AM PERFUMER Gender Identity Not on file Sexual Orientation Not on file documented as of this encounter Plan of Treatment Not on file documented as of this encounter Procedures Procedure Name Priority Date/Time Associated Diagnosis Comments TYPE AND SCREEN Routine 07/29/2024 11:23 AM PERFUMER End stage renal disease (CMS/HCC) (HCC) ABO/RH Routine 07/29/2024 11:13 AM PERFUMER LR HLA TYPING (CLASS I AND CLASS II) Routine 07/29/2024 11:01 AM PERFUMER End stage renal disease (CMS/HCC) (HCC) HLA CLASS I DNA (ABC) RECIPIENT Routine 07/29/2024 11:01 AM PERFUMER End stage renal disease (CMS/HCC) (HCC) HLA ANTIBODY SCREEN BY SINGLE ANTIGEN Routine 07/29/2024 11:01 AM PERFUMER End stage renal disease (CMS/HCC) (HCC) HLA CLASS II DNA (DR, DQ, DP) RECIPIENT Routine 07/29/2024 11:01 AM PERFUMER End stage renal disease (CMS/HCC) (HCC) EGFR Routine 07/29/2024 11:01 AM PERFUMER End stage renal disease (CMS/HCC) (HCC) DIFFERENTIAL AUTO Routine 07/29/2024 11: 01 AM PERFUMER End stage renal disease (CMS/HCC) (HCC) PSA SCREEN Routine 07/29/2024 11:01 AM PERFUMER End stage renal disease (CMS/HCC) (HCC) IRON PROFILE W/ IBC Routine 07/29/2024 1 1:01 AM PERFUMER End stage renal disease (CMS/HCC) (HCC) HIV 1/2 ANTIBODY PLUS P24 ANTIGEN Routine 07/29/2024 11:01 AM PERFUMER End stage renal disease (CMS/HCC) (HCC) CMV, IGG Routine 07/29/2024 11:01 AM PERFUMER End stage renal disease (CMS/HCC) (HCC) HLA ANTIBODY SCREEN - SAB (CLASS I AND CLASS II) Routine 07/29/2024 11:01 AM PERFUMER End stage renal disease (CMS/HCC) (HCC) CBC WITH AUTO DIFFERENTIAL Routine 07/29/2024 11:01 AM PERFUMER End stage renal disease (CMS/HCC) (HCC) HEPATITIS C ANTIBODY Routine 07/29/2024 11:01 AM PERFUMER End stage renal disease (CMS/HCC) (HCC) MADIHA-MORRIS VIRUS VCA ANTIBODY PANEL Routine 07/29/2024 11:01 AM PERFUMER End stage renal disease (CMS/HCC) (HCC) HEPATITIS B CORE ANTIBODY, TOTAL Routine 07/29/2024 11:01 AM PERFUMER End stage renal disease (CMS/HCC) (HCC) PROTEIN, URINE, RANDOM Routine 11:01 AM PERFUMER End stage renal disease (CMS/HCC) (HCC) CREATININE, URINE, RANDOM Routine 07/29/2024 11:01 AM PERFUMER End stage renal disease (CMS/HCC) (HCC) HSV 2 ANTIBODY, IGG Routine 07/29/2024 1 1:01 AM PERFUMER End stage renal disease (CMS/HCC) (HCC) HSV 1 ANTIBODY, IGG Routine 07/29/2024 1 1:01 AM PERFUMER End stage renal disease (CMS/HCC) (HCC) RPR Routine 07/29/2024 11:01 AM PERFUMER End stage renal disease (CMS/HCC) (HCC) HEPATITIS B SURFACE ANTIBODY (IMMUNE STATUS) Routine 07/29/2024 11:01 AM PERFUMER End stage renal disease (CMS/HCC) (HCC) HEPATITIS B SURFACE ANTIGEN Routine 07/29/2024 11:01 AM PERFUMER End stage renal disease (CMS/HCC) (HCC) APTT Routine 07/29/2024 11:01 AM PERFUMER End stage renal disease (CMS/HCC) (HCC) PROTIME-INR Routine 07/29/2024 11:01 AM PERFUMER End stage renal disease (CMS/HCC) (HCC) VARICELLA ZOSTER ANTIBODY, IGG Routine 07/29/2024 11:01 AM PERFUMER End stage renal disease (CMS/HCC) (HCC) URIC ACID Routine 07/29/2024 11:01 AM PERFUMER End stage renal disease (CMS/HCC) (HCC) PHOSPHORUS Routine 07/29/2024 11:01 AM PERFUMER End stage renal disease (CMS/HCC) (HCC) PTH Routine 07/29/2024 11:01 AM PERFUMER End stage renal disease (CMS/HCC) (HCC) HEMOGLOBIN A1C Routine 07/29/2024 11:01 AM PERFUMER End stage renal disease (CMS/HCC) (HCC) GAMMA GT Routine 07/29/2024 11:01 AM PERFUMER End stage renal disease (CMS/HCC) (HCC) FERRITIN Routine 07/29/2024 11:01 AM PERFUMER End stage renal disease (CMS/HCC) (HCC) LIPID PANEL Routine 07/29/2024 11:01 AM PERFUMER End stage renal disease (CMS/HCC) (HCC) COMPREHENSIVE METABOLIC PANEL Routine 07/29/2024 11:01 AM PERFUMER End stage renal disease (CMS/HCC) (HCC) OXALATE Routine 07/29/2024 10:53 AM PERFUMER ESRD (end stage renal disease) (CMS/HCC) (HCC) URINALYSIS AND REFLEX TO MICROSCOPIC Routine 07/29/2024 10:53 AM PERFUMER End stage renal disease (CMS/HCC) (HCC) URINALYSIS, MICROSCOPIC ONLY Routine 07/29/2024 10:53 AM PERFUMER End stage renal disease (CMS/HCC) (HCC) documented in this encounter Results * Type and screen (07/29/2024 11:23 AM PERFUMER) Maribel, indirect Negative ABO Rh A Positive [facility] Blood 07/29/2024 11:2 3 AM PERFUMER 07/29/2024 11:43 AM PERFUMER Narrative [facility] - 07/29/2024 12:45 PM PERFUMER Please draw the ABO and the Type and Screen as two separate blood draws with each stamped with the two different times stamps as this is a regulatory requirement for this patient to be listed for Kidney Transplant. ??This lab is being obtained as part of a Kidney transplant evaluation, is time sensitive, and should only be drawn during the evaluation visit at [facility] Lab. Has the patient had Daratumumab or Isatuximab in the past 6 months?->Unknown Jossie King MD LAB BLOOD BANK ERNESTO T ORDERABLES Final Result Performing Organization Address City/[facility]/ZIP Co de Phone Number ALESSANDRA CARRION [facility] [place] [address] * ABO/Rh (07/29/2024 11:13 AM PERFUMER) ABO Rh A Positive Blood 07/29/2024 11:1 3 AM PERFUMER 07/29/2024 2:45 PM PERFUMER Patrickniraj King MD LAB BLOOD BANK ERNESTO T ORDERABLES Final Result Performing Organization Address [facility] de Phone Number [facility] Department [place] [address] * (ABNORMAL) eGFR (07/29/2024 11:01 AM PERFUMER) eGFR 7(L) >=60 mL/min/1. 73 m2 Comment: [...] reviewed 2021. Blood 07/29/2024 11:0 1 AM PERFUMER 07/29/2024 11:33 AM PERFUMER us Jossie King MD LAB BLOOD ORDERABL ES Final Result [facility] Department [place] [address] * Differential, auto (07/29/2024 11:01 AM PERFUMER) Neutrophil abs 3.1 1.5 - 6.5 K/cumm Imm gran abs 0.0 0.0 - 0.1 K/cumm [facility] Lymphocyte abs 1.1 0.8 - 3.3 K/cumm [facility] Monocyte abs 0.7 0.2 - 0.8 K/cumm [facility] Eosinophil abs 0.2 0.0 - 0.5 K/cumm [facility] Basophil abs 0.0 0.0 - 0.1 K/cumm [facility] Neutrophil pct 60.3 % [facility] Comment: Interpretive Data Percent cell count reference ranges are not reported, since discordance with absolute values may lead to misinterpretation of CBC data. Current Interpretive Data was last revised on 2017. Imm gran pct 0.6 % [facility] Comment: Interpretive Data Percent cell count reference ranges are not reported, since discordance with absolute values may lead to misinterpretation of CBC data. Current Interpretive Data was last revised on 2017. Lymphocyte pct 21.4 % [facility] Comment: Interpretive Data Percent cell count reference ranges are not reported, since discordance with absolute values may lead to misinterpretation of CBC data. Current Interpretive Data was last revised on 2017. Monocyte pct 13.7 % [facility] Comment: Interpretive Data Percent cell count reference ranges are not reported, since discordance with absolute values may lead to misinterpretation of CBC data. Current Interpretive Data was last revised on 2017. Eosinophil pct 3.2 % [facility] Comment: Interpretive Data Percent cell count reference ranges are not reported, since discordance with absolute values may lead to misinterpretation of CBC data. Current Interpretive Data was last revised on 2017. Basophil pct 0.8 % [facility] Comment: Interpretive Data Percent cell count reference ranges are not reported, since discordance with absolute values may lead to misinterpretation of CBC data. Current Interpretive Data was last revised on 2017. Blood 07/29/2024 11:0 1 AM PERFUMER 07/29/2024 11:34 AM PERFUMER us Jossie King MD LAB BLOOD ORDERABL ES Final Result [facility] Department [place] [address] * (ABNORMAL) CBC with auto differential (07/29/2024 11:01 AM PERFUMER) WBC 5.1 3.8 - 9.9 K/cumm Hgb 11.5(L) 13.0 - 17.5 g/dL [facility] Hct 34.4(L) 38.9 - 50.3 % [facility] Plt 208 150 - 400 K/cumm [facility] MPV 10.8 9.1 - 12.3 fL [facility] RBC 3.76(L) 4.30 - 5.80 M/cumm [facility] MCV 91.5 81.3 - 96.4 fL [facility] MCH 30.6 27.1 - 33.3 pg [facility] MCHC 33.4 32.3 - 35.7 g/dL [facility] RDW CV 14.3 11.1 - 14.9 % [facility] RDW SD 47.9 35.7 - 48.1 fL [facility] NRBC abs 0.00 0.00 - 0.01 K/cumm [facility] Blood 07/29/2024 11:0 1 AM PERFUMER 07/29/2024 11:34 AM PERFUMER Narrative [facility] - 07/29/2024 11:45 AM PERFUMER This lab is being obtained as part of a Kidney transplant evaluation, is time sensitive, and should only be drawn during the evaluation visit at [address] Jossie King MD LAB BLOOD ORDERABL ES Final Result Performing Organization Address [facility] de Phone Number [facility] [place] [address] * (ABNORMAL) CMV, IgG Blood (07/29/2024 11:01 AM PERFUMER) [facility] CMV IgG Positive( A) Negative Comment: [...] CMV infection. Blood 07/29/2024 11:0 1 AM PERFUMER 07/29/2024 11:33 AM PERFUMER Narrative [facility] - 07/29/2024 1:44 PM PERFUMER This lab is being obtained as part of a Kidney transplant evaluation, is time sensitive, and should only be drawn during the evaluation visit at [address] Jossie King MD LAB MICROBIOLOGY - GENERAL ORDERABLES Final Result Performing Organization Address [facility] de Phone Number [facility] [place] [address] * (ABNORMAL) Comprehensive metabolic panel (07/29/2024 11:01 AM PERFUMER) [facility] Sodium 136 135 - 145 mmol/L Potassium, pl 4.6 3.3 - 4.9 mmol/L [facility] Chloride 93(L) 97 - 110 mmol/L [facility] CO2 26 22 - 32 mmol/L [facility] Anion gap 17(H) 2 - 15 mmol/L [facility] BUN 65(H) 6 - 25 mg/dL [facility] Creatinine 8.07(H) 0.80 - 1.30 mg/dL [facility] Glucose 280(H) 70 - 199 mg/dL [facility] Comment: Interpretive Data Fasting glucose >/= 126 [...] Calcium 9.4 8.5 - 10.3 mg/dL [facility] Bilirubin, total 0.3 0.1 - 1.2 mg/dL [facility] Protein, pl 7.2 6.5 - 8.5 g/dL [facility] Albumin 3.8 3.5 - 5.0 g/dL [facility] Alk phos 99 40 - 130 Units/L [facility] ALT 30 7 - 55 Units/L [facility] AST 31 10 - 50 Units/L [facility] Blood 07/29/2024 11:0 1 AM PERFUMER 07/29/2024 11:33 AM PERFUMER Narrative [facility] - 07/29/2024 12:10 PM PERFUMER This lab is being obtained as part of a Kidney transplant evaluation, is time sensitive, and should only be drawn during the evaluation visit at [facility] Lab. us Jossie King MD LAB BLOOD ORDERABL ES Final Result [facility] Department [place] [address] * Creatinine, urine, random (07/29/2024 11:01 AM PERFUMER) Creatinine Ur 167.1 mg/dL Comment: Interpretive Data No reference range established. Current interpretive data was last revised 2019. Urine 07/29/2024 11:0 1 AM PERFUMER 07/29/2024 11:32 AM PERFUMER Narrative [facility] - 07/29/2024 12:18 PM PERFUMER This lab is being obtained as part of a Kidney transplant evaluation, is time sensitive, and should only be drawn during the evaluation visit at [address] Lab[address] Jossie King MD LAB URINE ORDERABL ES Final Result Performing Organization Address [facility] Co de Phone Number [facility] Department [place] [address] * (ABNORMAL) Madiha-Morris virus (EBV) antibody panel Blood (07/29/2024 11:01 AM PERFUMER) [facility] EBV nuclear Ab Positive(A) Negative Comment:Indicates the presen ce of detectable IgG antibody to EBV Nuclear Antigen. EBV VCA IgG Positive(A) Negative [facility] Comment:Indicates the presen ce of antibody; 90% of the adult population will have been infected with EBV sometime in the past. EBV VCA IgM Negative Negative [facility] Comment:No detectable IgM an tibody to EBV-VCA. A negative result indicates no current infection with EBV. If clinical suspicion of acute EBV infection is present, testing should be repeated after one week. EBV interp Past Infection [facility] Blood 07/29/2024 11:0 1 AM PERFUMER 07/29/2024 11:33 AM PERFUMER Narrative [facility] - 07/29/2024 1:43 PM PERFUMER This lab is being obtained as part of a Kidney transplant evaluation, is time sensitive, and should only be drawn during the evaluation visit at [address] Lab[address] Jossie King MD LAB MICROBIOLOGY - GENERAL ORDERABLES Final Result Performing Organization Address City/[facility] Co de Phone Number [facility] Department [place] [address] * (ABNORMAL) Ferritin (07/29/2024 11:01 AM PERFUMER) [facility] Ferritin 761(H) 30 - 400 ng/mL Blood 07/29/2024 11:0 1 AM PERFUMER 07/29/2024 11:33 AM PERFUMER Narrative [facility] - 07/29/2024 12:10 PM PERFUMER This lab is being obtained as part of a Kidney transplant evaluation, is time sensitive, and should only be drawn during the evaluation visit at [address] Jossie King MD LAB BLOOD ORDERABL ES Final Result Performing Organization Address [facility] Co de Phone Number [facility] [place] [address] * Gamma GT (07/29/2024 11:01 AM PERFUMER) [facility] GGT 22 10 - 50 Units/L Blood 07/29/2024 11:0 1 AM PERFUMER 07/29/2024 11:33 AM PERFUMER Narrative [facility] 07/29/2024 12:40 PM PERFUMER This lab is being obtained as part of a Kidney transplant evaluation, is time sensitive, and should only be drawn during the evaluation visit at [address] Jossie King MD LAB BLOOD ORDERABL ES Final Result Performing Organization Address [facility] de Phone Number [facility] [place] [address] * HIV 1/2 Antibody plus p24 Antigen Blood (07/29/2024 11:01 AM PERFUMER) [facility] HIV 1/2 ab + p24 ag Nonreactive Nonreactive Comment:Nonreactive for HIV- 1 antigen and HIV-1/HIV-2 antibodies. No laboratory evidence of HIV infection. If acute HIV infection is suspected, consider testing for HIV-1 RNA. Current interpretive data was last revised on 22. Blood 07/29/2024 11:0 1 AM PERFUMER 07/29/2024 11:32 AM PERFUMER Narrative [facility] - 07/29/2024 12:13 PM PERFUMER This lab is being obtained as part of a Kidney transplant evaluation, is time sensitive, and should only be drawn during the evaluation visit at [address] Jossie King MD LAB MICROBIOLOGY - GENERAL ORDERABLES Final Result Performing Organization Address [facility] [place] [address] * (ABNORMAL) HSV 1 IgG Antibody Blood (07/29/2024 11:01 AM PERFUMER) HSV 1 IgG Reactive( A) Nonreactive Comment: Interpretive Data 1. Nonreactive: No detectable IgG antibody to HSV-1. 2. Equivocal: Presence or absence of detectable antibodies to HSV-1 cannot be determined and the test should be repeated. 3. Reactive: Indicates presence of detectable IgG antibody to HSV-1. Current interpretive data was last revised on 2016. Blood 07/29/2024 11:0 1 AM PERFUMER 07/29/2024 11:33 AM PERFUMER Narrative [facility] 07/29/2024 1:44 PM PERFUMER This lab is being obtained as part of a Kidney transplant evaluation, is time sensitive, and should only be drawn during the evaluation visit at [address] Jossie King MD LAB MICROBIOLOGY - GENERAL ORDERABLES Final Result Performing Organization Address [facility] de Phone Number [facility] [place] [address] * HSV 2 IgG Antibody Blood (07/29/2024 11:01 AM PERFUMER) Pathologist [facility] HSV 2 IgG Nonreactive Nonreactive Comment: Interpretive Data 1. Nonreactive: No detectable IgG antibody to HSV-2. 2. Equivocal: Presence or absence of detectable antibodies to HSV-2 cannot be determined and the test should be repeated. 3. Reactive: Indicates presence of detectable IgG antibody to HSV-2. Current interpretive data was last revised on 2022. Blood 07/29/2024 11:0 1 AM PERFUMER 07/29/2024 11:33 AM PERFUMER Narrative [facility] - 07/29/2024 1:44 PM PERFUMER This lab is being obtained as part of a Kidney transplant evaluation, is time sensitive, and should only be drawn during the evaluation visit at [address] Lab. Jossie King MD LAB MICROBIOLOGY - GENERAL ORDERABLES Final Result Performing Organization Address [facility] Co de Phone Number [facility] [place] [address] * (ABNORMAL) Hemoglobin A1c (07/29/2024 11:01 AM PERFUMER) [facility] Hgb A1C 9.0(H) 4.0 - 5.6 % Estimated Average Glucose 212 mg/dL [facility] Comment: The ADA recommends reporting an estimated Average Glucose (eAG) with all Hemoglobin A1c results using the equation derived from a study of 507 normal and diabetic adults. ??Minority populations were underrepresented and children were not included. ?? (Diabetes Care 2020; 43(S1): S66-S76). ??The eAG is not equivalent to a fasting glucose. Blood 07/29/2024 11:0 1 AM PERFUMER 07/29/2024 11:34 AM PERFUMER Narrative [facility] - 07/29/2024 11:53 AM PERFUMER This lab is being obtained as part of a Kidney transplant evaluation, is time sensitive, and should only be drawn during the evaluation visit at [address] Lab. Jossie King MD LAB BLOOD ORDERABL ES Final Result Performing Organization Address [facility] Co de Phone Number [facility] [place] [address] * Hepatitis B core antibody, total Blood (07/29/2024 11:01 AM PERFUMER) [facility] Hep B core IgG/IgM Nonreactive Nonreactive Blood 07/29/2024 11:0 1 AM PERFUMER 07/29/2024 11:32 AM PERFUMER Narrative [facility] - 07/29/2024 12:47 PM PERFUMER This lab is being obtained as part of a Kidney transplant evaluation, is time sensitive, and should only be drawn during the evaluation visit at [address] Lab[address] Jossie King MD LAB MICROBIOLOGY - GENERAL ORDERABLES Final Result Performing Organization Address [facility] de Phone Number [facility] [place] [address] * Hepatitis B surface antibody (immune status) Blood (07/29/2024 11:01 AM PERFUMER) HBsAb (immune status) Reactive Comment:This result is consi stent with immunity to Hepatitis B Virus when used in the setting of routine screening. Current interpretive data was last revised on 22 Blood 07/29/2024 11:0 1 AM PERFUMER 07/29/2024 11:32 AM PERFUMER Narrative [facility] 07/29/2024 12:47 PM PERFUMER This lab is being obtained as part of a Kidney transplant evaluation, is time sensitive, and should only be drawn during the evaluation visit at [address] Jossie King MD LAB MICROBIOLOGY - GENERAL ORDERABLES Final Result Performing Organization Address [facility] de Phone Number [facility] Department [place] [address] * Hepatitis B Surface Antigen Blood (07/29/2024 11:01 AM PERFUMER) HepBsAg Nonreactive Nonreactive Blood 07/29/2024 11:0 1 AM PERFUMER 07/29/2024 11:32 AM PERFUMER Narrative [facility] - 07/29/2024 12:47 PM PERFUMER This lab is being obtained as part of a Kidney transplant evaluation, is time sensitive, and should only be drawn during the evaluation visit at [address] Jossie King MD LAB MICROBIOLOGY - GENERAL ORDERABLES Final Result Performing Organization Address [facility] Co de Phone Number [facility] [place] [address] * Hepatitis C antibody Blood (07/29/2024 11:01 AM PERFUMER) Pathologist [facility] Hep C Ab Nonreactive Nonreactive Comment:Antibodies to HCV no t detected. Does NOT exclude the possibility of recent exposure to HCV. Current interpretive data was last revised on 22 Blood 07/29/2024 11:0 1 AM PERFUMER 07/29/2024 11:32 AM PERFUMER Narrative [facility] - 07/29/2024 12:47 PM PERFUMER This lab is being obtained as part of a Kidney transplant evaluation, is time sensitive, and should only be drawn during the evaluation visit at [address] Jossie King MD LAB MICROBIOLOGY - GENERAL ORDERABLES Final Result Performing Organization Address [facility] Co de Phone Number [facility] [place] [address] * (ABNORMAL) Iron profile w/ IBC (07/29/2024 11:01 AM PERFUMER) [facility] Iron 62 50 - 150 mcg/dL TIBC 208(L) 250 - 400 mcg/dL [facility] Transferrin saturation 30 20 - 50 % [facility] Blood 07/29/2024 11:0 1 AM PERFUMER 07/29/2024 11:33 AM PERFUMER Narrative [facility] - 07/29/2024 12:10 PM PERFUMER This lab is being obtained as part of a Kidney transplant evaluation, is time sensitive, and should only be drawn during the evaluation visit at [address] Jossie King MD LAB BLOOD ORDERABL ES Final Result Performing Organization Address [facility] Co de Phone Number [facility] [place] [address] * (ABNORMAL) Lipid panel (07/29/2024 11:01 AM PERFUMER) [facility] Cholesterol 114 30 - 199 mg/dL Comment: [...] on 2018. Triglycerides 66 <=149 mg/dL [facility] Comment: Interpretive Data Ages < [...] revised on 2018. HDL 29(L) >=40 mg/dL [facility] Comment: Interpretive Data Ages < or = [...] on 2018. LDL, calculated 71 <=129 mg/dL [facility] Comment: Interpretive Data Ages < or = [...] revised on 2024. Non-HDL Cholesterol 85 mg/dL [facility] Comment: Interpretive Data Ages < or = [...] revised on 2018. Chol/HDL ratio 4 [facility] Blood 07/29/2024 11:0 1 AM PERFUMER 07/29/2024 11:33 AM PERFUMER Narrative [facility] - 07/29/2024 12:10 PM PERFUMER This lab is being obtained as part of a Kidney transplant evaluation, is time sensitive, and should only be drawn during the evaluation visit at [address] Jossie King MD LAB BLOOD ORDERABL ES Final Result Performing Organization Address [facility] de Phone Number [facility] Department [place] [address] * (ABNORMAL) PTH (07/29/2024 11:01 AM PERFUMER) [facility] PTH 444(H) 15 - 65 pg/mL Blood 07/29/2024 11:0 1 AM PERFUMER 07/29/2024 11:34 AM PERFUMER Narrative [facility] - 07/29/2024 12:02 PM PERFUMER This lab is being obtained as part of a Kidney transplant evaluation, is time sensitive, and should only be drawn during the evaluation visit at [address] Jossie King MD LAB BLOOD ORDERABL ES Final Result Performing Organization Address [facility] de Phone Number [facility] [place] [address] * (ABNORMAL) aPTT (07/29/2024 11:01 AM PERFUMER) [facility] aPTT 61(H) 28 - 38 sec Comment: Interpretive Data Heparin therapeutic range: 66.0 - 100.0 seconds. Range based on correlation with therapeutic heparin activity range of 0.3 - 0.7 Units/mL. Current interpretive data was last revised on 2023. Blood 07/29/2024 11:0 1 AM PERFUMER 07/29/2024 11:32 AM PERFUMER Narrative [facility] - 07/29/2024 11:42 AM PERFUMER This lab is being obtained as part of a Kidney transplant evaluation, is time sensitive, and should only be drawn during the evaluation visit at [address] Lab[address] Jossie King MD LAB BLOOD ORDERABL ES Final Result Performing Organization Address [facility] de Phone Number [facility] [place] [address] * (ABNORMAL) Phosphorus (07/29/2024 11:01 AM PERFUMER) [facility] Phosphorus, pl 5.1(H) 2.3 - 4.5 mg/dL Blood 07/29/2024 11:0 1 AM PERFUMER 07/29/2024 11:33 AM PERFUMER Narrative [facility] 07/29/2024 12:10 PM PERFUMER This lab is being obtained as part of a Kidney transplant evaluation, is time sensitive, and should only be drawn during the evaluation visit at [address] Lab[address] Jossie King MD LAB BLOOD ORDERABL ES Final Result Performing Organization Address [facility] Co de Phone Number [facility] [place] [address] * Protein, urine, random (07/29/2024 11:01 AM PERFUMER) [facility] Protein, ur, quant 121.2 mg/dL Comment: Interpretive Data No reference range established. Current interpretive data was last revised 2019. Urine 07/29/2024 11:0 1 AM PERFUMER 07/29/2024 11:32 AM PERFUMER Narrative [facility] - 07/29/2024 12:18 PM PERFUMER This lab is being obtained as part of a Kidney transplant evaluation, is time sensitive, and should only be drawn during the evaluation visit at [address] Lab[address] Jossie King MD LAB URINE ORDERABL ES Final Result Performing Organization Address [facility] de Phone Number [facility] Department [place] [address] * (ABNORMAL) Protime-INR (07/29/2024 11:01 AM PERFUMER) PT 50.6(H) 9.7 - 13.0 sec INR 4.54(H) 0.90 - 1.20 [facility] Comment: Interpretive data Oral anticoagulant therapeutic ranges: Venous thromboembolism prophylaxis or treatment: 2.0-3.0 CARDIOLOGY Standard range: 2.0-3.0 High-intensity range: 2.5-3.5 Refer to indication-specific guidelines for appropriate target ranges for prosthetic heart valve replacement. Current interpretive data was last revised on 2019. Blood 07/29/2024 11:0 1 AM PERFUMER 07/29/2024 11:32 AM PERFUMER Narrative [facility] - 07/29/2024 11:42 AM PERFUMER This lab is being obtained as part of a Kidney transplant evaluation, is time sensitive, and should only be drawn during the evaluation visit at [address] Lab[address] Jossie King MD LAB BLOOD ORDERABL ES Final Result Performing Organization Address [facility] Co de Phone Number [facility] Department [place] [address] * RPR Blood (07/29/2024 11:01 AM PERFUMER) RPR Nonreactive Nonreactive Blood 07/29/2024 11:0 1 AM PERFUMER 07/29/2024 11:33 AM PERFUMER Narrative [facility] 07/29/2024 12:34 PM PERFUMER This lab is being obtained as part of a Kidney transplant evaluation, is time sensitive, and should only be drawn during the evaluation visit at [address] Jossie King MD LAB MICROBIOLOGY - GENERAL ORDERABLES Final Result Performing Organization Address [facility] de Phone Number [facility] [place] [address] * Varicella Zoster IgG antibody Blood (07/29/2024 11:01 AM PERFUMER) Pathologist [facility] VZV IgG Reactive Reactive Comment:Reactive: Results diego ggest response to immunization or prior exposure to the virus. Blood 07/29/2024 11:0 1 AM PERFUMER 07/29/2024 11:33 AM PERFUMER Narrative [facility] 07/29/2024 1:45 PM PERFUMER This lab is being obtained as part of a Kidney transplant evaluation, is time sensitive, and should only be drawn during the evaluation visit at [address] Result [facility] Jossie King MD LAB MICROBIOLOGY - GENERAL ORDERABLES Final Result Performing Organization Address [facility] de Phone Number [facility] [place] [address] * (ABNORMAL) Uric acid (07/29/2024 11:01 AM PERFUMER) Pathologist [facility] Uric acid 2.0(L) 3.0 - 8.0 mg/dL Blood 07/29/2024 11:0 1 AM PERFUMER 07/29/2024 11:33 AM PERFUMER Narrative [facility] 07/29/2024 12:10 PM PERFUMER This lab is being obtained as part of a Kidney transplant evaluation, is time sensitive, and should only be drawn during the evaluation visit at [address] Jossie King MD LAB BLOOD ORDERABL ES Final Result Performing Organization Address [facility] de Phone Number [facility] Billie [facility] [place] [address] * PSA screen (07/29/2024 11:01 AM PERFUMER) PSA-Total 0.55 <=3.90 ng/mL Comment: Interpretive Data ?AGE ? SEX ?REFERENCE INTERVAL 0 minutes-150 years ?Female ?None 0 minutes-49 years ? Male ?None ? 50-59 years ? Male ?0-3.90 ? 60-69 years ? Male ?0-5.40 ? 70-79 years ? Male ?0-6.20 ? 80-150 years ?Male ?0-6.20 The Cureatr PSA Total assay procedure was used. Results from different manufacturers or methods may not be comparable. Serial testing should be performed using the same method. Current interpretive data last revised 21. Blood 07/29/2024 11:0 1 AM PERFUMER 07/29/2024 11:33 AM PERFUMER Narrative [facility] - 07/29/2024 12:39 PM PERFUMER This lab is being obtained as part of a Kidney transplant evaluation, is time sensitive, and should only be drawn during the evaluation visit at [facility] Lab. Jossie King MD LAB BLOOD ORDERABL ES Final Result Performing Organization Address [facility] Co de Phone Number [facility] Billie [facility] [place] [address] * LR HLA Typing (Class I and Class II) (07/29/2024 11:01 AM PERFUMER) r-SSO [facility] A [place] A*03 [facility] [...] 07/30/24 [facility] Blood 07/29/2024 11:0 1 AM PERFUMER 08/02/2024 9:03 AM PERFUMER Narrative [facility] - 08/02/2024 9:03 AM PERFUMER DNA was extracted from whole blood or buccal cell specimens, and relevant genomic regions were amplified by polymerase chain reactions (PCR). HLA typing was performed on PCR amplicons using reverse sequence-specific oligonucleotide (r-SSO) and/or sequence-specific primers (SSP) based techniques. r-SSO and SSP are FDA approved as IVD tests and validated by the [facility] HLA Laboratory. Testing performed at the [facility] HLA Laboratory, [address], 5th floor, [facility], [place], [address]. [facility] # [id number]. Dorothy Meade, Ph.D., Print Producer, HLA Laboratory Rell Samuels M.D., Ph.D., Concrete Mixer Operator Helper, HLA Laboratory Licha Nieto, Ph.D., [place] Concrete Mixer Operator Helper, [facility] Clinical Laboratories Current methodology comment last revised on 04/25/17. Jossie King MD LAB BLOOD ORDERABL ES Final Result Performing Organization Address City/[facility]/ZIP Co de Phone Number [facility] * Collection Task for HLA Typing 1 (07/29/2024 11:01 AM PERFUMER) HLA Class I DNA (ABC) Recipient Received Blood 07/29/2024 11:0 1 AM PERFUMER 07/29/2024 11:56 AM PERFUMER Jossie King MD LAB BLOOD ORDERABL ES Final Result Performing Organization Address [facility] Co de Phone Number [facility] [place] [address] * Collection Task for HLA Typing 2, Patient (07/29/2024 11:01 AM PERFUMER) HLA Class II DNA (DR, DQ, DP) Recipient Received Blood 07/29/2024 11:0 1 AM PERFUMER 07/29/2024 11:56 AM PERFUMER Jossie King MD LAB BLOOD ORDERABL ES Final Result Performing Organization Address City/[facility] Co de Phone Number [facility] [place] [address] * HLA Antibody Screen - SAB (Class I and Class II) (07/29/2024 11:01 AM PERFUMER) Class I Treatment EDTA [facility] Class I [...] DR52 [facility] Blood 07/29/2024 11:0 1 AM PERFUMER 08/02/2024 9:46 AM PERFUMER Narrative [facility] - 08/02/2024 9:46 AM PERFUMER Single-antigen HLA antibody screen is performed on serum samples using a method developed and validated by the [facility] HLA laboratory based on an FDA-approved IVD kit (The [employer] Single-Antigen, [employer], [facility] [place]). All patient serum samples are pretreated with EDTA before the screen to prevent complement interference. Additional serum treatments, such as adsorption and DTT treatment, may be performed as indicated. ??Interpretive comments: Low risk: MFI [id number]. Moderate risk: MFI [id number]. Increased risk: MFI >/= 5000. The presence [...] antigens to avoid. Testing performed at the [facility] HLA Laboratory, [facility] [address], 5th floor, [facility], [place], [address]. [facility] # [id number]. Dorothy Meade, Ph.D., Print Producer, HLA Laboratory Rell Samuels M.D., Ph.D., Concrete Mixer Operator Helper, HLA Laboratory Licha Nieto, Ph.D., CLIA Concrete Mixer Operator Helper, [facility] Clinical Laboratories Current methodology and interpretive comments last revised on 09/15/2022. Jossie King MD LAB BLOOD ORDERABL ES Final Result Performing Organization Address [facility] Co de Phone Number [facility] * Collection Task for HLA Antibody Screen (07/29/2024 11:01 AM PERFUMER) HLA Antibody Screen By Single Antigen Received Blood 07/29/2024 11:0 1 AM PERFUMER 07/29/2024 11:56 AM PERFUMER Jossie King MD LAB BLOOD ORDERABL ES Final Result Performing Organization Address [facility] Co de Phone Number [facility] One [facility] Department [place] [address] * (ABNORMAL) Urinalysis, microscopic only (07/29/2024 10:53 AM PERFUMER) WBC, ur 21-50(A) 0 - 5 /HPF RBC, ur >50(A) 0 - 2 /HPF [facility] Epithelial cells, squamous, ur 1-5 0 - 5 /HPF [facility] Bacteria, ur Trace(A) [facility] Mucous, ur Present(A) [facility] Hyaline casts, ur 1-5 0 - 10 /LPF [facility] Urine 07/29/2024 10:5 3 AM PERFUMER 07/29/2024 11:27 AM PERFUMER Jossie King MD LAB URINE ORDERABL ES Final Result Performing Organization Address City/[facility]/ZIP Co de Phone Number [facility] Department [place] [address] * (ABNORMAL) Oxalate (oxalic acid) (07/29/2024 10:53 AM PERFUMER) Oxalate 12.3(H) <=2.0 mcmol/L [facility] Comment: High value suggestive of Primary Hyperoxaluria. However, if the patient has chronic kidney disease (GFR<30 mL/min/1.73m2), plasma oxalate values up to 30 mcmol/L can be normal. The [facility] Hyperoxaluria Center is available to review case details and answer any questions regarding interpretation ([email or web address]; [phone]) ADDITIONAL INFORMATION This test has been modified from the commercial title examiner's instructions. Its performance characteristics were determined by [facility] in a manner consistent with CLIA requirements. This test has not been cleared or approved by the U.S. Food and Drug Administration. Test Performed by: [facility] Laboratories [address] [address] Ordnance Mechanic: Jairo Higgins Ph.D.; CLIA# [id number] Blood 07/29/2024 10:5 3 AM PERFUMER 07/29/2024 11:37 AM PERFUMER us Jossie King MD LAB BLOOD ORDERABL ES Final Result [facility] Department [place] [address] [facility] * (ABNORMAL) Urinalysis reflex to microscopic (07/29/2024 10:53 AM PERFUMER) Color, ur Yellow Yellow Clarity, ur Cloudy(A) Clear [facility] Specific gravity, ur 1.022 1.003 - 1.030 [facility] pH, urine 6.0 [facility] Comment: Interpretive Data ? Urine pH is affected by diet, medications, systemic acid-base disturbances, and renal tubular function. ??pH may affect urinary stone formation. ??For example, urine pH below 6.0 may help reduce the tendency for calcium phosphate stones and pH greater than 6.0 may reduce the tendency for uric acid stone formation. Source: [facility] Current Interpretive Data was last revised on 2017 Protein, ur ql 2+(A) Negative [facility] Glucose, ur ql 4+(A) Negative [facility] Ketones, ur Negative Negative [facility] Bilirubin, ur Negative Negative [facility] Blood, ur 3+(A) Negative [facility] Urobilinogen, ur <2.0 <2.0 mg/dL [facility] Nitrite, ur Negative Negative [facility] Leukocyte esterase, ur 2+(A) Negative [facility] UA reflex comment Reflex to microscopic UA will be performed. [facility] Urine 07/29/2024 10:5 3 AM PERFUMER 07/29/2024 11:27 AM PERFUMER Narrative [facility] - 07/29/2024 11:29 AM PERFUMER This lab is being obtained as part of a Kidney transplant evaluation, is time sensitive, and should only be drawn during the evaluation visit at [facility] Lab. us Jossie King MD LAB URINE ORDERABL ES Final Result [facility] One [facility] Department [place] [address] documented in this encounter Visit Diagnoses Diagnosis End stage renal disease (CMS/HCC) (HCC) End stage renal disease ESRD (end stage renal disease) (CMS/HCC) (HCC) End stage renal disease documented in this encounter Care Teams Behavioral Technician Relationship Specialty Start Date End Date Aditya Castro MD [address] [facility] [place] [address] PCP - General 10/17/19 Alondra Lambert, RN [address] [facility] [address] [place] [address] Cylinder Die Machine Operator 03/06/24 Hamlet Ortega Jr., MD [address] [place] [address] Consulting Physician Cardiovascular Disease 05/10/24 documented as of this encounter
--- OUTSIDE RECORDS SUMMARY | 2024-08-24 04:38 | XMS_ITS | Encounter Summary ---
Author Organization [facility] Healthcare Address [address] [place] [address] Care Team Providers Care Nutrition Services Assistant Name Role Phone Aditya Castro MD Primary Care Provider [phone] Alondra Lambert RN Unavailable [phone] Shannon Brock MD, Hamlet P. Unavailable [phone] Leandro Reyes MD Unavailable [phone] Encounter Details Date Type Department Care Team (Late st Contact Info) Description 08/06/2024 Documentation [facility] Transplant Kidney [address] [facility] [address] Mailstop [phone] [place] [address] Alondra Lambert, RN [address] [facility] [address] [place] [address] Social History Tobacco Use Types Packs/Day Years [...] materials from doctor or pharmacy Never 12/01/2023 [facility] Utilities Answer Date [...] week 08/01/2024 How often do you attend sabianism or anglican serv ices? Never 08/01/2024 Do you belong [...] in a alf (including now)? No 10/16/2023 Housing Stability Vital [...] time in the past 12 m [facility], were you homeless or living in a alf (including now)? No 08/01/2024 Personal Safety Answer Date Recorded Have you ever been in or are you currently in a harmful physical or emotional relationship or is someone making you feel afraid or unsafe? 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 Male 3:42 AM CAMERA PROTOTYPING ENGINEER Gender Identity Not on file Sexual Orientation Not on file documented as of this encounter Plan of Treatment Not on file documented as of this encounter Visit Diagnoses Not on filedocumented in this encounter Care Teams Nutrition Services Assistant Relationship Specialty Start Date End Date Aditya Castro MD [address] [facility] [place] [address] PCP - General 10/17/19 Alondra Lambert, RN [address] [address] Document Processor 03/06/24 Hamlet Ortega Jr., MD [address] [place] [address] Consulting Physician Cardiovascular Disease 05/10/24 Leandro Reyes MD [address] [facility] 1 [place] [address] Consulting Physician Nephrology 07/30/24 documented as of this encounter
--- OUTSIDE RECORDS SUMMARY | 2024-08-24 04:38 | XMS_ITS | Encounter Summary ---
Author Organization [facility] Healthcare Address [address] [place] [address] Care Team Providers Care Mobile Application Engineer Name Role Phone Aditya Castro MD Primary Care Provider [phone] Alondra Lambert RN Unavailable [phone] Shannon Brock MD, Hamlet P. Unavailable [phone] Leandro Reyes MD Unavailable [phone] Encounter Details Date Type Department Care Team (Late st Contact Info) Description 07/30/2024 Telephone [facility] Transplant Kidney [address] [facility] 340 Mailstop [phone] [place] [address] Alondra Lambert RN [address] [facility] [address] [place] [id number] Social History Tobacco Use Types Packs/Day Years [...] materials from doctor or pharmacy Never 12/01/2023 [facility] Utilities Answer Date Recorded In the past [...] any clubs o r organizations such as muslim groups, unions, fraternal or athletic groups, or [...] on file Legal Sex Male 3:42 AM SPECTRAL SCIENTIST Gender Identity Not on file Sexual Orientation [...] and asked who managed his Coumadin. His flume maker takes care of this. Willmail out letter today summarizing remaining things needed to complete evaluation. Called and spoke with nurse at dialysis center. Mentioned that we felt he was in volume overload. Read the CT report to her. Will discuss this with nephrology. TRAL SCIENTIST documented in this encounter Plan of Treatment Not on file documented as of this encounter Visit Diagnoses Not on filedocumented in this encounter Care Teams Mobile Application Engineer Relationship Specialty Start Date End Date Aditya Castro MD [address] [facility] [place] [address] PCP - General 10/17/19 Alondra Lambert RN [address] [address] [address] Hopper 03/06/24 Hamlet Ortega Jr., MD [address] [place] [address] Consulting Physician Cardiovascular Disease 05/10/24 Leandro Reyes MD [facility] [place] [address] Consulting Physician Nephrology 07/30/24 documented as of this encounter
--- OUTSIDE RECORDS SUMMARY | 2024-08-24 04:39 | XMS_ITS | Encounter Summary ---
Author Organization [facility] Healthcare Address [address] [place] [address] Care Team Providers Care Type Mapper Name Role Phone Aditya Castro MD Primary Care Provider [phone] Alondra Lambert RN Unavailable [phone] Shannon Brock MD, Hamlet Gordon Unavailable [phone] Encounter Details Date Type Department Care Team (Late st Contact Info) Description 07/22/2024 Telephone [facility] Transplant Kidney [address] [address] Mailstop [id number] [place] [address] Chris Richard Social History Tobacco Use Types [...] materials from doctor or pharmacy Never 12/01/2023 [facility] Utilities Answer Date Recorded In the past 12 months has e [employer], gas, oil, or water company threatened to [...] often do you attend chur ch or sabianist services? 1 to 4 times per year 10/16/2023 Do you belong to any clubs o r organizations such as gnosticist groups, unions, fraternal or athletic groups, or [...] file Legal Sex Male 3:42 AM MEDICAL OFFICE TECHNOLOGIST Gender Identity Not on file Sexual Orientation Not on file documented as of this encounter Miscellaneous Notes * Telephone Encounter - Chris Richard - 07/22/2024 10:10 AM CST Outreached to patient at [phone] for the scheduled 1000 financial consult, left detailed voicemail requesting patient to call back. CAL OFFICE TECHNOLOGIST documented in this encounter Plan of Treatment Not on file documented as of this encounter Visit Diagnoses Not on filedocumented in this encounter Care Teams Type Mapper Relationship Specialty Start Date End Date Aditya Castro MD [address] [place] [address] PCP - General 10/17/19 Alondra [place], RN 50[address] [facility] [address] [place] [address] Fire Pilot 03/06/24 Hamlet Ortega Jr., MD [address] [place] [address] Consulting Physician Cardiovascular Disease 05/10/24 documented as of this encounter
--- OUTSIDE RECORDS SUMMARY | 2024-08-24 04:39 | XMS_ITS | Encounter Summary ---
Author Organization [facility] Healthcare Address [address] [place] [address] Care Team Providers Care Cigar Head Stringer Name Role Phone Aditya Castro MD Primary Care Provider [phone] Aolndra Lambert RN Unavailable [phone] Shannon Brock MD, Hamlet P. Unavailable [phone] Reason for Visit * (Routine) - Pending Review Specialty Diagnoses / Procedures Referred By Contac t Referred To Contact Diagnoses End stage renal disease (CMS/HCC) (HCC) Procedures Six Minute Walk - Jossie King MD [address] [place] [address] Phone: tel: fax: [address] [phone] Referral ID Status Reason Start Date Expiration Date V isits Requested Visits Authorized [id number] Pending Review 05/10/2024 06/09/2025 1 1 Encounter Details Date Type Department Care Team (Latest Contact Info) Description 07/29/2024 11:02 AM INTERNATIONAL TRADE COMPLIANCE MANAGER - 07/29/2024 11:59 PM INTERNATIONAL TRADE COMPLIANCE MANAGER Hospital Encounter [facility] Pulmonary Rehabilitiation Program [address] [facility] Advanced [facility] [address] [place] [address] Discharge Disposition: Discharge to home [...] materials from doctor or pharmacy Never 12/01/2023 [facility] Utilities Answer Date Recorded In the [...] often do you attend chur ch or methodist services? 1 to 4 times per year [...] on file Legal Sex Male 3:42 AM INTERNATIONAL TRADE COMPLIANCE MANAGER Gender Identity Not on file Sexual [...] PUMP: Continue Omnipod 5 insulin pump with [employer] G6 CGM at home settings: TIME BASAL [...] 1 tablet (25 mcg total) by mouth patents examiner before breakfast 30 tablet 1 11/04/2023 Linzess [...] (20 mg total) by mouth daily peg 454-fmcvpwxhhljy-jlu cerin (ARTIFICAL TEARS) 1-0.2-0.2 % ophthalmic solution [...] SIX MINUTE WALK Routine 07/29/2024 2:46 PM INTERNATIONAL TRADE COMPLIANCE MANAGER End stage renal disease (CMS/HCC) (HCC) documented in this encounter Results * Six Minute Walk - (07/29/2024 2:46 PM INTERNATIONAL TRADE COMPLIANCE MANAGER) Anatomical Region Laterality Modality PFT Narrative 07/29/2024 3:52 PM INTERNATIONAL TRADE COMPLIANCE MANAGER Table formatting from the original result was not included. Davey Pickard V., HYDRO TECHNICIAN on 07/29/2024 ??2:45 PM Table formatting from the original note was not included. 6 MINUTE WALK RESULTS Name: Juvenal Daigle Jr : 1970 DOS: 07/29/2024 Diagnosis: ESRD/KTE HYDRO TECHNICIAN performed walk: Carmenza Pickard Rest: 1 [...] Prescription: RA at rest and with exercise [facility] Jaylen King MD RESPIRATORY CARE O RDERABLES Final Result documented in this encounter Visit Diagnoses Not on filedocumented in this encounter Care Teams Cigar Head Stringer Relationship Specialty Start Date End Date Aditya Castro MD [address] [place] [address] PCP - General 10/17/19 Alondra [place], RN 6107 [facility] [address] [place] [address] Auto Customize Painter 03/06/24 Hamlet Ortega Jr., MD [address] [place] [address] Consulting Physician Cardiovascular Disease 05/10/24 documented as of this encounter
--- OUTSIDE RECORDS SUMMARY | 2024-08-24 04:39 | XMS_ITS | Encounter Summary ---
Author Organization [facility] Healthcare Address [address] [place] [address] Care Team Providers Care Fly Frame Tender Name Role Phone Aditya Castro MD Primary Care Provider [phone] Alondra Lambert RN Unavailable [phone] Reason for Referral * Transplant (Routine) - Authorized Specialty Diagnoses / Procedures Referred By Contac t Referred To Contact Transplant Diagnoses ESRD (end stage renal disease) ([facility]) (HCC) Elizabeth Cardoso MD [address] [place] [address] Phone: tel: fax: [facility] Transplant Kidney 45[address] [facility] [address] Mailstop [id number] [place] [address] Phone: tel: fax: Referral ID Status Reason Start Date Expiration Date Visits Requested Visits Authorized [id number] Authorized Specialty Services Required 03/06/2024 03/06/2034 1 1 Question Answer Organ Kidney [[id number]] Please select the performing region: [facility] [[id number]] Please select the performing department: [facility] KIDNEY TRANSPLANT [[id number]] Reason for Visit * Reason Onset Date Comments Referral - Kidney Txp 03/06/2024 Encounter Details Date Type Department Care Team (Late st Contact Info) Description 03/06/[address] [facility] Transplant Kidney [address] [facility] [address] Mailstop [id number] [place] [address] Tisha Riley Referral - Kidney Txp Social [...] Recorded In the past 12 months has [employer], gas, oil, or water Ed[employer] threatened to shut off services in your [...] How often do you attend chur or pentecostalism services? 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 Please verify insurance. Thank you! * Telephone Encounter - Chris Richard - 04/01/2024 1:08 PM CDT Outreached to patient at [phone], per patient, he is pending an answer from [facility] on whether they would cover his INR machine. Follow up in a month. * Telephone Encounter - Chris Richard - 03/25/2024 1:46 PM CDT Outreached to patient at [phone], left detailed voicemail requesting patient to fax his [facility] insurance card to Finance. Provided Finance's fax number. Invited patient to call should his insurancesituation is otherwise. * Telephone Encounter - Chris Richard - 03/06/2024 1:46 PM CDT Patient called back inquiring if [facility] Transplant accepts [facility] Complete Care PPO. Informed patient that [facility] works with [facility] Transplant. Suggested patient to check with his existing provider and the insurance plan to ensure seamless transition to the [facility] plan, and it is his responsibility to ensure thisis the case. Patient expressed understanding. Patient mentioned the [facility] plan will be effective 024 if he signs up for [facility]. Informed patient that Financ will call him on 03/25/2024 to obtain insurance ID number and insurance card. Patient understood. * Telephone Encounter - Chris Richard - 03/06/2024 11:49 AM CDT Outreached to patient at [phone], informed patient that [facility] does not include [facility] Transplant as a in-network provider. Offered the option to have patient contact [facility] for possible transplant network, or to work on switching insurance in his own will to a carrier that works with [facility]. Patient opted for changing his insurance. 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 Patient preliminary opting for [facility]. Informed patient that [facility] works with [facility] for transplant. Patient requested call back in [...] currently on dialysis Recipient questionnaire, ROXANA, and pants busheler assessment saved to chart documented in this encounter Plan of Treatment Scheduled Referrals Name Type Priority Associated Diagnoses Order Schedule Transplant Referral for Financial Clearance Outpatient Referral Routine ESRD (end stage renal disease) (CMS/HCC) ([facility]) Ordered: 03/06/2024 documented as of this encounter Visit Diagnoses Diagnosis ESRD (end stage renal disease) (CMS/HCC) (HCC)- Primary End stage renal disease documented in this encounter Care Teams Fly Frame Tender Relationship Specialty Start Date End Date Aditya Castro MD [address] [place] [address] PCP - General 10/17/19 Alondra Lambert, RN [address] [address] Supervisor Cereal 03/06/24 documented as of this encounter
--- OUTSIDE RECORDS SUMMARY | 2024-08-24 04:39 | XMS_ITS | Encounter Summary ---
Author Organization [facility] Healthcare Address [address] [place] [address] Care Team Providers Care Administrative Accountant Name Role Phone Aditya Castro MD Primary Care Provider [phone] Reason for Visit * Reason Onset Date Comments Anticoagulation 12/01/2023 Encounter Details Date Type Department Care Team (Late st Contact Info) Description 12/01/2023 Telephone Cardiovascular and Thoracic Surgery [address] [facility] [address] [place] [address] Licha Jenkins NP [address] [facility] [address] [place] [address] Anticoagulation Social History Tobacco Use [...] materials from doctor or pharmacy Never 12/01/2023 [facility] Utilities Answer Date Recorded In the past 12 months has th e [employer], [employer], or [employer] threatened to shut off services in your [...] often do you attend chur ch or anabaptist services? 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 He sees his hat presser on Monday and they will take over his anticoagulation management. He is discharged from home health after today. documented in this encounter Plan of Treatment Not on file documented as of this encounter Visit Diagnoses Not on filedocumented in this encounter Care Teams Administrative Accountant Relationship Specialty Start Date End Date Aditya Castro MD [address] [facility] [place] [address] PCP - General 10/17/19 documented as of this encounter
--- OUTSIDE RECORDS SUMMARY | 2024-08-24 04:39 | XMS_ITS | Encounter Summary ---
Author Organization [facility] Healthcare Address [address] [place] [address] Care Team Providers Care Panman Name Role Phone Aditya Castro MD Primary Care Provider [phone] Alondra Lambert RN Unavailable [phone] Shannon Brock MD, Hamlet Gordillo. Unavailable [phone] Reason for Visit * Reason Onset Date Comments Appointment/Schedules 05/13/2024 Encounter Details Date Type Department Care Team (Late st Contact Info) Description 05/13/2024 Documentation [facility] Transplant Kidney [id number] [place] [address] Melany Kelly Appointment/Schedules Social History Tobacco Use [...] often do you attend chur ch or hoahaoism services? 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
--- OUTSIDE RECORDS SUMMARY | 2024-08-24 04:39 | XMS_ITS | Encounter Summary ---
Author Organization [facility] Healthcare Address [address] [place] [address] Care Team Providers Care Cutter Operator Asbestos Shingle Name Role Phone Aditya Castro MD Primary Care Provider [phone] Alondra Lambert RN Unavailable [phone] Encounter Details Date Type Department Care Team (Late st Contact Info) Description 05/02/2024 Documentation [facility] Transplant Kidney 45[address] [facility] 34[address] Mailstop [phone] [place] [address] Melany Kelly Social History Tobacco Use Types [...] materials from doctor or pharmacy Never 12/01/2023 [facility] Utilities Answer Date Recorded In [...] on file 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 documented in this encounter Plan of Treatment Not on file documented as of this encounter Visit Diagnoses Not on filedocumented in this encounter Care Teams Cutter Operator Asbestos Shingle Relationship Specialty Start Date End Date Aditya Castro MD [address] [facility] [place] [address] PCP - General 10/17/19 Alondra Lambert, RN 48[address] [facility] [address] [place] [address] Mri Special Procedures Technologist 03/06/24 documented as of this encounter
--- OUTSIDE RECORDS SUMMARY | 2024-08-24 04:39 | XMS_ITS | Encounter Summary ---
Author Organization [facility] Healthcare Address [address] [place] [address] Care Team Providers Care Bank Cashier Name Role Phone Aditya Castro MD Primary Care Provider [phone] Alondra Lambert RN Unavailable [phone] Shannon Brock MD, Hamlte Gordon Unavailable [phone] Encounter Details Date Type Department Care Team (Late st Contact Info) Description 07/26/2024 Telephone [facility] Transplant Kidney [address] [address] Mailstop [phone] [place] [address] Elsie Cornejo Social History Tobacco Use Types [...] materials from doctor or pharmacy Never 12/01/2023 [facility] Utilities Answer Date Recorded In the past 12 months has [employer], gas, oil, or water [employer] threatened to shut off services in your [...] on file Legal 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 No follow-up needed. L DIETITIAN documented in this encounter Plan of Treatment Not on file documented as of this encounter Visit Diagnoses Not on filedocumented in this encounter Care Teams Bank Cashier Relationship Specialty Start Date End Date Aditya Castro MD [address] [place] [address] PCP - General 10/17/19 Alondra Lambert, RN 4590 [facility] [address] [place] [address] County Bailiff 03/06/24 Hamlet Ortega Jr., MD [address] [place] [address] Consulting Physician Cardiovascular Disease 05/10/24 documented as of this encounter
--- OUTSIDE RECORDS SUMMARY | 2024-08-24 04:39 | XMS_ITS | Encounter Summary ---
Author Organization [facility] Healthcare Address [address] [place] [address] Care Team Providers Care Commissioned Defence Force Officer Name Role Phone Aditya Castro MD Primary Care Provider [phone] Alondra Lambert RN Unavailable [phone] Shannon Brock MD, Hamlet Gordon Unavailable [phone] Encounter Details Date Type Department Care Team (Late st Contact Info) Description 05/10/2024 Telephone 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
--- OUTSIDE RECORDS SUMMARY | 2024-08-24 04:39 | XMS_ITS | Encounter Summary ---
Author Organization [facility] Address [address] [place] [address] Phone Care Team Providers Care Custom Marine Canvas Fabricator Name Role Phone Aditya Castro MD Primary Care Provider [phone] Alnodra Lambert RN Unavailable [phone] Shannon Brock MD, Hamlet P. Unavailable [phone] Leandro Reyes MD Unavailable [phone] Encounter Details Date Type Department Care Team (Late st Contact Info) Description 07/29/2024 1:00 PM DRONE PILOT Office Visit [facility] Nephrology [address] [facility] Advanced Medicine 5th [place] [address] [place] [address] Radha Bartholomew MD [facility]ly [facility] [address] [place] [address] Pre-transplant evaluation for kidney transplant (Primary Dx); End stage renal disease (CMS/HCC) (HCC); Status post coronary artery bypass grafting; Status post aortic valve replacement; 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 No 10/16/2023 Personal Safety Answer Date Recorded Have you ever been in or are you currently in a harmful physical or emotional relationship or is someone making you feel afraid or unsafe? 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 Male 3:42 AM DRONE PILOT Gender Identity Not on file Sexual Orientation Not on file documented as of this encounter Last Filed Vital Signs Vital Sign Reading Time Taken Comments Blood Pressure 122/75 07/29/2024 1:00 PM DRONE PILOT Pulse 116 07/29/2024 1:00 PM DRONE PILOT Temperature 36.8 ??C (98.2 ??F) 07/29/2024 1:00 PM CS T Respiratory Rate - - Oxygen Saturation - - Inhaled Oxygen Concentration - - Weight 121.2 kg (267 lb 1.6 oz) 07/29/2024 1:00 PM DRONE PILOT Height 177.8 cm (5' 10 ) 07/29/2024 1:00 PM DRONE PILOT Body Mass Index 38.32 07/29/2024 1:00 PM DRONE PILOT documented in this encounter Progress Notes * [...] mech AVR 09/2023 with sternal plate 5. [place]/STEMI 2016 and 2019. Prior stent 03/2017 to [...] 1 tablet (25 mcg total) by mouth law secretary beforebreakfast, Disp: 30 tablet, Rfl: 1 Linzess [...] by mouth daily, Disp: , Rfl: peg 233-riypgtfxpier-avesamoe (ARTIFICAL TEARS) 1-0.2-0.2 % ophthalmic solution, 1 [...] Nonreactive 07/29/2024 Lab Results Component Value Date [id number] Nonreactive 07/29/2024 Lab Results Component Value Date [...] of intravenous contrast. INDICATIONS: Coronary artery disease, houlton vessel. Measurements: 2D/M Mode Doppler Measurement Value [...] testing, I have communicated with the patient's [facility] warehouse logistics coordinator the patient's candidacy for transplant and [...] as well. He should work with his trainmaster on volume removal/fluid restriction to optimize this. [...] SHR donors. 12. Being seen by his trainmaster this week for the PD cath. The [...] time spent in any separately reportable services. 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 Paroxysmal atrial fibrillation (CMS/HCC) (HCC) Atrial [...] tablet added in this encounter Care Teams Custom Marine Canvas Fabricator Relationship Specialty Start Date End Date Aditya Castro MD [address] [facility] [place] [address] PCP - General 10/17/19 Alondra [place], RN 4590 [facility] [address] [place] [address] Flexographic Printing Press Operator 03/06/24 Hamlet Ortega Jr., MD [address] [place] [address] Consulting Physician Cardiovascular Disease 05/10/24 Leandro Reyes MD [address] [place] [address] Consulting Physician Nephrology 07/30/24 documented as of this encounter
--- OUTSIDE RECORDS SUMMARY | 2024-08-24 04:39 | XMS_ITS | Encounter Summary ---
Author Organization [facility] Healthcare Address [address] [place] [address] Care Team Providers Care Beater Dumper Name Role Phone Aditya Castro MD Primary Care Provider [phone] Alondra Lambert RN Unavailable [phone] Shannon Brock MD, Hamlet Gordon Unavailable [phone] Encounter Details Date Type Department Care Team (Late st Contact Info) Description 05/16/2024 Documentation [facility] and [facility] Transplant Kidney [id number] [place] [address] Melany Kelly Social History Tobacco Use Types [...] materials from doctor or pharmacy Never 12/01/2023 [facility] Utilities Answer Date Recorded In the past 12 months has [employer], gas, oil, or water company threatened to [...] often do you attend chur ch or alevism services? 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 Gender Identity Not on file Sexual Orientation Not on file documented as of this encounter Progress Notes * Melany Kelly - 05/16/2024 9:00 AM CDT Mailed c/c folder, schedule, consents, etc documented in this encounter Plan of Treatment Not on file documented as of this encounter Visit Diagnoses Not on filedocumented in this encounter Care Teams Beater Dumper Relationship Specialty Start Date End Date Aditya Castro MD [address] [facility] [place] [address] PCP - General 10/17/19 Alondra Lambert RN 4590 [facility] [address] [place] [address] Pigskin Trimmer 03/06/24 Hamlet Ortega Jr., MD [address] [place] [address] Consulting Physician Cardiovascular Disease 05/10/24 documented as of this encounter
--- OUTSIDE RECORDS SUMMARY | 2024-08-24 04:39 | XMS_ITS | Encounter Summary ---
Author Organization [facility] Healthcare Address [address] [place] [address] Care Team Providers Care Chief Customer Officer Name Role Phone Aditya Castro MD Primary Care Provider [phone] Alondra Lambert RN Unavailable [phone] Encounter Details Date Type Department Care Team (Late st Contact Info) Description 04/25/[address] [facility] and [facility] Transplant Kidney [address] 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 Called back patient at [phone], requesting patient to fax his insurance card front and back toFinance. documented in this encounter Plan of Treatment Not on file documented as of this encounter Visit Diagnoses Not on filedocumented in this encounter Care Teams Chief Customer Officer Relationship Specialty Start Date End Date Aditya Castro MD [address] [facility] [place] [address] PCP - General 10/17/19 Alondra Lambert, RN [address] [address] Fishing Tool Supervisor 03/06/24 documented as of this encounter
--- OUTSIDE RECORDS SUMMARY | 2024-08-24 04:39 | XMS_ITS | Encounter Summary ---
Author Organization [facility] Healthcare Address [address] [place] [address] Care Team Providers Care Credit Support Specialist Name Role Phone Aditya Castro MD Primary Care Provider [phone] Alondra Lambert RN Unavailable [phone] Shannon Brock MD, Hamlet Gordon Unavailable [phone] Encounter Details Date Type Department Care Team (Late st Contact Info) Description 06/28/2024 Telephone [facility] Transplant Kidney [address] [address] [address] [phone] [place] [address] Chris Richard Social History Tobacco Use Types [...] materials from doctor or pharmacy Never 12/01/2023 [facility] Utilities Answer Date Recorded In the past 12 months has e [employer] gas, oil, or water company threatened to [...] often do you attend chur ch or presybeterian services? 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 Yovanny can be reached at [phone] ext [phone]. K STENOGRAPHER documented in this encounter Plan of Treatment Not on file documented as of this encounter Visit Diagnoses Not on filedocumented in this encounter Care Teams Credit Support Specialist Relationship Specialty Start Date End Date Aditya Castro MD [address] [facility] [place] [address] PCP - General 10/17/19 Alondra Lambert, RN [address] [facility] [address] [place] [address] Etiquette Teacher 03/06/24 Hamlet Ortega Jr., MD [address] [place] [address] Consulting Physician Cardiovascular Disease 05/10/24 documented as of this encounter
--- OUTSIDE RECORDS SUMMARY | 2024-08-24 04:39 | XMS_ITS | Encounter Summary ---
Author Organization [facility] Healthcare Address [address] [place] [address] Care Team Providers Care Diamond Selector Name Role Phone Aditya Castro MD Primary Care Provider [phone] Alondra Lambert RN Unavailable [phone] Shannon Brock MD, Hamlet Gordon Unavailable [phone] Encounter Details Date Type Department Care Team (Late st Contact Info) Description 06/11/2024 Orders Only [facility] Cardiology [address] [place] [address] Karen Barnes, ROBERTO [address] [place] [address] Social History Tobacco Use Types [...] materials from doctor or pharmacy Never 12/01/[address] 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
--- OUTSIDE RECORDS SUMMARY | 2024-08-24 04:39 | XMS_ITS | Encounter Summary ---
Author Organization [facility] Healthcare Address [address] [place] [address] Care Team Providers Care Tuck Pointer Name Role Phone Aditya Castro MD Primary Care Provider [phone] Alondra Lambert RN Unavailable [phone] Shannon Brock MD, Hamlet Gordon Unavailable [phone] Encounter Details Date Type Department Care Team (Late st Contact Info) Description 06/06/2024 Documentation [facility] and [facility] Transplant Kidney [phone] [place] [address] Melany Kelly Social History Tobacco Use Types [...] Recorded In the past 12 months has [employer], gas, oil, or water company threatened to [...] often do you attend chur ch or roman catholic services? 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
--- OUTSIDE RECORDS SUMMARY | 2024-08-24 04:39 | XMS_ITS | Encounter Summary ---
Author Organization [facility] Healthcare Address [address] [place] [address] Care Team Providers Care Fourth Hand Name Role Phone Aditya Castro MD Primary Care Provider [phone] Alondra Lambert RN Unavailable [phone] Shannon Brock MD, Hamlet Gordon Unavailable [phone] Encounter Details Date Type Department Care Team (Late st Contact Info) Description 06/24/2024 Telephone [facility] Transplant Kidney [address] [address] [address] [phone] [place] [address] Chris Richard Social History Tobacco Use Types [...] materials from doctor or pharmacy Never 12/01/2023 [facility] Utilities Answer Date Recorded In the past 12 months has e [employer], gas, oil, or water company threatened to [...] on file 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 Pending confirmation. 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
--- OUTSIDE RECORDS SUMMARY | 2024-08-24 04:39 | XMS_ITS | Encounter Summary ---
Author Organization [facility] Healthcare Address [address] [place] [address] Care Team Providers Care Commercial Solar Sales Consultant Name Role Phone Aditya Castro MD Primary Care Provider [phone] Alondra Lambert RN Unavailable [phone] Shannon Brock MD, Hamlet Gordon Unavailable [phone] Encounter Details Date Type Department Care Team (Late st Contact Info) Description 05/10/[address] [facility] and [facility] Transplant Kidney [address] [facility] [address] [phone] [place], [place] [id number] Alondra Lambert, RN [address] [facility] [address] [place] [id number] Social History Tobacco Use Types Packs/Day Years [...] doctor or pharmacy Never 12/01/2023 [facility] Utilities Answer Date Recorded In the [...] often do you attend chur ch or rastafarian services? 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
--- OUTSIDE RECORDS SUMMARY | 2024-08-24 04:39 | XMS_ITS | Encounter Summary ---
Author Organization [facility] Healthcare Address [address] [place] [address] Care Team Providers Care Program Support Assistant Name Role Phone Aditya Castro MD Primary Care Provider [phone] Alondra Lambert RN Unavailable [phone] Shannon Brock MD, Hamlet Gordon Unavailable [phone] Encounter Details Date Type Department Care Team (Late st Contact Info) Description 07/26/2024 Telephone [facility] Transplant Kidney [address] 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 S TECHNICIAN/INSTALLER documented in this encounter Plan of Treatment Not on file documented as of this encounter Visit Diagnoses Not on filedocumented in this encounter Care Teams Program Support Assistant Relationship Specialty Start Date End Date Aditya Castro MD [address] [facility] [place]PT [place] [address] PCP - General 10/17/19 Alondra Lambert, RN [address] [facility] [address] [place] [address] Powder Compounder 03/06/24 Hamlet Ortega Jr., MD [address] [place] [address] Consulting Physician Cardiovascular Disease 05/10/24 documented as of this encounter
--- OUTSIDE RECORDS SUMMARY | 2024-08-24 04:39 | XMS_ITS | Encounter Summary ---
Author Organization [facility] Healthcare Address [address] [place] [address] Care Team Providers Care Termite Treater Name Role Phone Aditya Castro MD Primary Care Provider [phone] Alondra Lambert RN Unavailable [phone] Shannon Brock MD, [place] P. Unavailable [phone] Reason for Referral * (Routine) - Pending Review Specialty Diagnoses / Procedures Referred By Contac t Referred To Contact Diagnoses End stage renal disease (CMS/HCC) (HCC) Procedures Six Minute Walk - Jossie King MD [address] [place] [address] Phone: tel: fax: [facility] [address] [place] [address] Referral ID Status Reason Start Date Expiration Date V isits Requested Visits Authorized [id number] Pending Review 05/10/2024 06/09/2025 1 1 * Cardiology (Routine) - Pending Review Specialty Diagnoses / Procedures Referred By Contac t Referred To Contact Diagnoses End stage renal disease (CMS/HCC) (HCC) Procedures ECG 12 lead Jossie King MD [address] [place] [address] Phone: tel: fax: [address] [phone] Referral ID Status Reason Start Date Expiration Date V isits Requested Visits Authorized [id number] Pending Review 05/10/2024 06/09/2025 1 1 * Diagnostic Imaging (Routine) - Pending Review Specialty Diagnoses / Procedures Referred By Contac t Referred To Contact Diagnoses End stage renal disease (CMS/HCC) (HCC) Procedures XR Orthopantogram Panorex Jossie King MD [address] [address] Phone: tel: fax: [address] [phone] Referral ID Status Reason Start Date Expiration Date V isits Requested Visits Authorized [id number] Pending Review 05/10/2024 06/09/2025 1 1 * Diagnostic Imaging (Routine) - Pending Review Specialty Diagnoses / Procedures Referred By Contac t Referred To Contact Radiology Diagnoses End stage renal disease (CMS/HCC) (HCC) Procedures CT Abdomen Pelvis WO Contrast Jossie King MD [address] [address] Phone: tel: fax: [address] [phone] Referral ID Status Reason Start Date Expiration Date V isits Requested Visits Authorized [id number] Pending Review 05/10/2024 06/09/2025 1 1 Encounter Details Date Type Department Care Team (Late st Contact Info) Description 05/10/2024 Telephone [facility] Transplant Kidney [address] [facility] [address] [id number] [place] [address] Alondra Lambert, RN [address] [facility] [address] [place] [address] Social History Tobacco Use Types Packs/Day Years [...] doctor or pharmacy Never 12/01/2023 [facility] Utilities Answer Date Recorded In the past 12 months has th e [employer], gas, oil, or water [employer] threatened to shut off services in [...] often do you attend chur ch or sikhism services? 1 to 4 times per year 10/16/2023 Do you belong to any clubs o r organizations such as amish groups, unions, fraternal or athletic groups, or [...] on file Legal Sex Male 3:42 AM OPTICAL DESIGNER Gender Identity Not on file Sexual Orientation [...] are to call the transplant department at [phone]. Please schedule pt for the following Pt does dialysis PD Please obtain [phone]. Yes Transplant Education Video - this will [...] SIX MINUTE WALK Routine 07/29/2024 2:46 PM OPTICAL DESIGNER End stage renal disease (CMS/HCC) (HCC) documented in this encounter Results * Six Minute Walk - (07/29/2024 2:46 PM OPTICAL DESIGNER) Anatomical Region Laterality Modality PFT Narrative 07/29/2024 3:52 PM OPTICAL DESIGNER Table formatting from the original result was not included. Davey Pickard V., HOLE DIGGER TRUCK DRIVER on 07/29/2024 ??2:45 PM Table formatting from the original note was not included. 6 MINUTE WALK RESULTS Name: SamderJuvenal Jr : 1970 DOS: 07/29/2024 Diagnosis: ESRD/KTE HOLE DIGGER TRUCK DRIVER performed walk: Carmenza Pickard Rest: 1 min [...] Abdomen Pelvis WO Contrast (07/29/2024 12:43 PM OPTICAL DESIGNER) Anatomical Region Laterality Modality Body N/A Computed Tomogra phy 07/29/2024 1:04 PM OPTICAL DESIGNER Impressions 07/29/2024 1:04 PM OPTICAL DESIGNER 1. ??Moderate discontinuous atherosclerotic calcifications involve the [...] Teresa Rivera M.D. Narrative 07/29/2024 1:04 PM OPTICAL DESIGNER EXAMINATION: ??Computed tomography of the abdomen and [...] Electronically signed by: Maria Teresa Rivera M.D. 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 Electronically signed by: Julio Pinedo M.D. Narrative 07/29/2024 12:59 PM OPTICAL DESIGNER EXAMINATION: XR ORTHOPANTOGRAM/PANOREX HISTORY: Kidney Transplant Evaluation [...] * Type and screen (07/29/2024 11:23 AM OPTICAL DESIGNER) Maribel, indirect Negative ABO Rh A Positive [facility] Blood 07/29/2024 11:2 3 AM OPTICAL DESIGNER 07/29/2024 11:43 AM OPTICAL DESIGNER Narrative [facility] - 07/29/2024 12:45 PM OPTICAL DESIGNER Please draw the ABO and the Type and Screen as two separate blood draws with each stamped with the two different times stamps as this is a regulatory requirement for this patient to be listed for Kidney Transplant. ??This lab is being obtained as part of a Kidney transplant evaluation, is time sensitive, and should only be drawn during the evaluation visit at [facility] Lab. Has the patient had Daratumumab or Isatuximab in the past 6 months?->Unknown Jossie King MD LAB BLOOD BANK ERNESTO T ORDERABLES Final Result [facility] Department [place] [address] * ECG 12 lead (07/29/2024 11:14 AM OPTICAL DESIGNER) Ventricular Rate EKG/Min 117 BPM [facility] Atrial Rate 117 BPM [facility] TN-Interval (MSEC) 144 ms [facility] QRS-Interval (MSEC) 126 ms [facility] QT-Interval (MSEC) 366 ms [facility] QTc 510 ms [facility] R [place] -40 degrees [facility] T [place] 147 degrees [facility] Diagnosis Poor data quality, interpretation [...] elevation in Inferior leads Confirmed by FERDINAND ASL M.D ([id number]) on 07/29/2024 3:38:41 PM [facility] 07/29/2024 11:1 4 AM OPTICAL DESIGNER 07/29/2024 3:38 PM OPTICAL DESIGNER Jossie King MD ECG ORDERABLES Fi nal Result [facility] * PSA screen (07/29/2024 11:01 AM OPTICAL DESIGNER) PSA-Total 0.55 <=3.90 ng/mL Comment: Interpretive Data [...] revised 21. Blood 07/29/2024 11:0 1 AM OPTICAL DESIGNER 07/29/2024 11:33 AM OPTICAL DESIGNER Narrative [facility] - 07/29/2024 12:39 PM OPTICAL DESIGNER This lab is being obtained as part of a Kidney transplant evaluation, is time sensitive, and should only be drawn during the evaluation visit at [facility] Lab. Jossie King MD LAB BLOOD ORDERABL ES Final Result Performing Organization Address [facility] de Phone Number [facility] Department [place] [address] * Collection Task for HLA Antibody Screen (07/29/2024 11:01 AM OPTICAL DESIGNER) HLA Antibody Screen By Single Antigen Received Blood 07/29/2024 11:0 1 AM OPTICAL DESIGNER 07/29/2024 11:56 AM OPTICAL DESIGNER Jossie King MD LAB BLOOD ORDERABL ES Final Result Performing Organization Address [facility] de Phone Number [facility] Department [employer] [place] [place] [address] * HLA Antibody Screen - SAB (Class I and Class II) (07/29/2024 11:01 AM OPTICAL DESIGNER) Class I Treatment EDTA [facility] Class I [...] DR52 [facility] Blood 07/29/2024 11:0 1 AM OPTICAL DESIGNER 08/02/2024 9:46 AM OPTICAL DESIGNER Narrative [facility] - 08/02/2024 9:46 AM OPTICAL DESIGNER Single-antigen HLA antibody screen is performed on serum samples using a method developed and validated by the [facility] laboratory based on an FDA-approved IVD kit (LABScreen Single-Antigen, [employer], [place], [place]). All patient serum samples are pretreated with EDTA before the screen to prevent complement interference. Additional serum treatments, such as adsorption and DTT treatment, may be performed as indicated. ??Interpretive comments: Low risk: MFI [id number]. Moderate risk: MFI [id number]. Increased risk: MFI >/= 5000. The presence [...] antigens to avoid. Testing performed at the [facility], [address] [place] [address], 5th floor, [facility], [place], [address]. [place] # [id number]. Dorothy Meade, Ph.D., Sample Grinder, HLA Laboratory Rell Samuels M.D., Ph.D., Production Control Clerk, HLA Laboratory Licha Nieto, Ph.D., CLIA Production Control Clerk, [facility] Current methodology and interpretive comments last revised on 09/15/2022. Jossie King MD LAB BLOOD ORDERABL ES Final Result [facility] * Collection Task for HLA Typing 2, Patient (07/29/2024 11:01 AM OPTICAL DESIGNER) HLA Class II DNA (DR, DQ, DP) Recipient Received Blood 07/29/2024 11:0 1 AM OPTICAL DESIGNER 07/29/2024 11:56 AM OPTICAL DESIGNER Jossie King MD LAB BLOOD ORDERABL ES Final Result Performing Organization Address City/[facility] Co de Phone Number [facility] Department [place] [address] * Collection Task for HLA Typing 1 (07/29/2024 11:01 AM OPTICAL DESIGNER) HLA Class I DNA (ABC) Recipient Received Blood 07/29/2024 11:0 1 AM OPTICAL DESIGNER 07/29/2024 11:56 AM OPTICAL DESIGNER Jossie King MD LAB BLOOD ORDERABL ES Final Result Performing Organization Address [facility] Co de Phone Number [facility] Department [place] [address] * LR HLA Typing (Class I and Class II) (07/29/2024 11:01 AM OPTICAL DESIGNER) r-SSO [facility] A First [place] A*03 [facility] [...] 07/30/24 [facility] Blood 07/29/2024 11:0 1 AM OPTICAL DESIGNER 08/02/2024 9:03 AM OPTICAL DESIGNER Narrative [facility] - 08/02/2024 9:03 AM OPTICAL DESIGNER DNA was extracted from whole blood or buccal cell specimens, and relevant genomic regions were amplified by polymerase chain reactions (PCR). HLA typing was performed on PCR amplicons using reverse sequence-specific oligonucleotide (r-SSO) and/or sequence-specific primers (SSP) based techniques. r-SSO and SSP are FDA approved as IVD tests and validated by the [facility]. Testing performed at the [facility], [address] [place] [address], 5th floor, [place], [address]. [place] # [id number]. Dorothy Meade, Ph.D., Sample Grinder, HLA Laboratory Rell Samuels M.D., Ph.D., Production Control Clerk, HLA Laboratory Licha Nieto, Ph.D., CLIA Production Control Clerk, [facility] Current methodology comment last revised on 04/25/17. Jossie King MD LAB BLOOD ORDERABL ES Final Result [facility] * (ABNORMAL) Uric acid (07/29/2024 11:01 AM OPTICAL DESIGNER) Pathologist [facility] Uric acid 2.0(L) 3.0 - 8.0 mg/dL Blood 07/29/2024 11:0 1 AM OPTICAL DESIGNER 07/29/2024 11:33 AM OPTICAL DESIGNER Narrative [facility] - 07/29/2024 12:10 PM OPTICAL DESIGNER This lab is being obtained as part of a Kidney transplant evaluation, is time sensitive, and should only be drawn during the evaluation visit at [address] Jossie King MD LAB BLOOD ORDERABL ES Final Result Performing Organization Address [facility] de Phone Number [facility] Department [place] [address] * Varicella Zoster IgG antibody Blood (07/29/2024 11:01 AM OPTICAL DESIGNER) [facility] VZV IgG Reactive Reactive Comment:Reactive: Results diego ggest response to immunization or prior exposure to the virus. Blood 07/29/2024 11:0 1 AM OPTICAL DESIGNER 07/29/2024 11:33 AM OPTICAL DESIGNER Narrative [facility] 07/29/2024 1:45 PM OPTICAL DESIGNER This lab is being obtained as part of a Kidney transplant evaluation, is time sensitive, and should only be drawn during the evaluation visit at [address] Jossie King MD LAB MICROBIOLOGY - GENERAL ORDERABLES Final Result Performing Organization Address [facility] Co de Phone Number [facility] Department [place] [address] * RPR Blood (07/29/2024 11:01 AM OPTICAL DESIGNER) Pathologist [facility] RPR Nonreactive Nonreactive Blood 07/29/2024 11:0 1 AM OPTICAL DESIGNER 07/29/2024 11:33 AM OPTICAL DESIGNER Narrative [facility] - 07/29/2024 12:34 PM OPTICAL DESIGNER This lab is being obtained as part of a Kidney transplant evaluation, is time sensitive, and should only be drawn during the evaluation visit at [address] Jossie King MD LAB MICROBIOLOGY - GENERAL ORDERABLES Final Result Performing Organization Address [facility] de Phone Number [facility] [place] [employer] [address] * (ABNORMAL) Protime-INR (07/29/2024 11:01 AM OPTICAL DESIGNER) Pathologist [facility] PT 50.6(H) 9.7 - 13.0 sec INR 4.54(H) 0.90 - 1.20 [facility] Comment: Interpretive data Oral anticoagulant therapeutic ranges: Venous thromboembolism prophylaxis or treatment: 2.0-3.0 CARDIOLOGY Standard range: 2.0-3.0 High-intensity range: 2.5-3.5 Refer to indication-specific guidelines for appropriate target ranges for prosthetic heart valve replacement. Current interpretive data was last revised on 2019. Blood 07/29/2024 11:0 1 AM OPTICAL DESIGNER 07/29/2024 11:32 AM OPTICAL DESIGNER Narrative [facility] 07/29/2024 11:42 AM OPTICAL DESIGNER This lab is being obtained as part of a Kidney transplant evaluation, is time sensitive, and should only be drawn during the evaluation visit at [address] Jossie King MD LAB BLOOD ORDERABL ES Final Result Performing Organization Address [facility] de Phone Number [facility] of [place] [address] * Protein, urine, random (07/29/2024 11:01 AM OPTICAL DESIGNER) Pathologist [facility] Protein, ur, quant 121.2 mg/dL Comment: Interpretive Data No reference range established. Current interpretive data was last revised 2019. Urine 07/29/2024 11:0 1 AM OPTICAL DESIGNER 07/29/2024 11:32 AM OPTICAL DESIGNER Narrative [facility] 07/29/2024 12:18 PM OPTICAL DESIGNER This lab is being obtained as part of a Kidney transplant evaluation, is time sensitive, and should only be drawn during the evaluation visit at [address] Lab. Jossie King MD LAB URINE ORDERABL ES Final Result Performing Organization Address [facility] de Phone Number [facility] [place] [address] * (ABNORMAL) Phosphorus (07/29/2024 11:01 AM OPTICAL DESIGNER) Phosphorus, pl 5.1(H) 2.3 - 4.5 mg/dL Blood 07/29/2024 11:0 1 AM OPTICAL DESIGNER 07/29/2024 11:33 AM OPTICAL DESIGNER Narrative [facility] 07/29/2024 12:10 PM OPTICAL DESIGNER This lab is being obtained as part of a Kidney transplant evaluation, is time sensitive, and should only be drawn during the evaluation visit at [address] Lab. Jossie King MD LAB BLOOD ORDERABL ES Final Result Performing Organization Address [facility] [place] [address] * (ABNORMAL) aPTT (07/29/2024 11:01 AM OPTICAL DESIGNER) aPTT 61(H) 28 - 38 sec Comment: Interpretive Data Heparin therapeutic range: 66.0 - 100.0 seconds. Range based on correlation with therapeutic heparin activity range of 0.3 - 0.7 Units/mL. Current interpretive data was last revised on 2023. Blood 07/29/2024 11:0 1 AM OPTICAL DESIGNER 07/29/2024 11:32 AM OPTICAL DESIGNER Narrative [facility] 07/29/2024 11:42 AM OPTICAL DESIGNER This lab is being obtained as part of a Kidney transplant evaluation, is time sensitive, and should only be drawn during the evaluation visit at [address] Jossie King MD LAB BLOOD ORDERABL ES Final Result Performing Organization Address [facility] de Phone Number [facility] of [place] [address] * (ABNORMAL) PTH (07/29/2024 11:01 AM OPTICAL DESIGNER) [facility] PTH 444(H) 15 - 65 pg/mL Blood 07/29/2024 11:0 1 AM OPTICAL DESIGNER 07/29/2024 11:34 AM OPTICAL DESIGNER Narrative [facility] - 07/29/2024 12:02 PM OPTICAL DESIGNER This lab is being obtained as part of a Kidney transplant evaluation, is time sensitive, and should only be drawn during the evaluation visit at [address] Lab. Jossie King MD LAB BLOOD ORDERABL ES Final Result Performing Organization Address [facility] de Phone Number [facility] Department of [place] [address] * (ABNORMAL) Lipid panel (07/29/2024 11:01 AM OPTICAL DESIGNER) [facility] Cholesterol 114 30 - 199 mg/dL [...] revised on 2018. Triglycerides 66 <=149 mg/dL [facility] Comment: Interpretive Data Ages < [...] revised on 2018. HDL 29(L) >=40 mg/dL [facility] Comment: Interpretive Data Ages < [...] on 2018. LDL, calculated 71 <=129 mg/dL [facility] Comment: Interpretive Data Ages < [...] revised on 2024. Non-HDL Cholesterol 85 mg/dL [facility] Comment: Interpretive Data Ages < [...] last revised on 2018. Chol/HDL ratio 4 [facility] Blood 07/29/2024 11:0 1 AM OPTICAL DESIGNER 07/29/2024 11:33 AM OPTICAL DESIGNER [facility]ative [facility] 07/29/2024 12:10 PM OPTICAL DESIGNER This lab is being obtained as part of a Kidney transplant evaluation, is time sensitive, and should only be drawn during the evaluation visit at [facility] Lab. Jossie King MD LAB BLOOD ORDERABL ES Final Result Performing Organization Address [facility] Co de Phone Number [facility] of [place] [address] * (ABNORMAL) Iron profile w/ IBC (07/29/2024 11:01 AM OPTICAL DESIGNER) [facility] Iron 62 50 - 150 mcg/dL TIBC 208(L) 250 - 400 mcg/dL [facility] Transferrin saturation 30 20 - 50 % [facility] Blood 07/29/2024 11:0 1 AM OPTICAL DESIGNER 07/29/2024 11:33 AM OPTICAL DESIGNER Narrative [facility] - 07/29/2024 12:10 PM OPTICAL DESIGNER This lab is being obtained as part of a Kidney transplant evaluation, is time sensitive, and should only be drawn during the evaluation visit at [address] Lab. Jossie King MD LAB BLOOD ORDERABL ES Final Result Performing Organization Address [facility] de Phone Number [facility] of [place] [address] * Hepatitis C antibody Blood (07/29/2024 11:01 AM OPTICAL DESIGNER) [facility] Hep C Ab Nonreactive Nonreactive Comment:Antibodies to HCV no t detected. Does NOT exclude the possibility of recent exposure to HCV. Current interpretive data was last revised on 22 Blood 07/29/2024 11:0 1 AM OPTICAL DESIGNER 07/29/2024 11:32 AM OPTICAL DESIGNER Narrative [facility] - 07/29/2024 12:47 PM OPTICAL DESIGNER This lab is being obtained as part of a Kidney transplant evaluation, is time sensitive, and should only be drawn during the evaluation visit at [address] Lab. Jossie King MD LAB MICROBIOLOGY - GENERAL ORDERABLES Final Result Performing Organization Address [facility] Co de Phone Number [facility] of [place] [address] * Hepatitis B Surface Antigen Blood (07/29/2024 11:01 AM OPTICAL DESIGNER) Pathologist [facility] HepBsAg Nonreactive Nonreactive Blood 07/29/2024 11:0 1 AM OPTICAL DESIGNER 07/29/2024 11:32 AM OPTICAL DESIGNER Narrative [facility] - 07/29/2024 12:47 PM OPTICAL DESIGNER This lab is being obtained as part of a Kidney transplant evaluation, is time sensitive, and should only be drawn during the evaluation visit at [address] Lab[address] Jossie King MD LAB MICROBIOLOGY - GENERAL ORDERABLES Final Result Performing Organization Address City/[facility] Co de Phone Number [facility] [employer] [place] [address] * Hepatitis B surface antibody (immune status) Blood (07/29/2024 11:01 AM OPTICAL DESIGNER) [facility] HBsAb (immune status) Reactive Comment:This result is consi stent with immunity to Hepatitis B Virus when used in the setting of routine screening. Current interpretive data was last revised on 22 Blood 07/29/2024 11:0 1 AM OPTICAL DESIGNER 07/29/2024 11:32 AM OPTICAL DESIGNER Narrative [facility] - 07/29/2024 12:47 PM OPTICAL DESIGNER This lab is being obtained as part of a Kidney transplant evaluation, is time sensitive, and should only be drawn during the evaluation visit at [address] Jossie King MD LAB MICROBIOLOGY - GENERAL ORDERABLES Final Result [facility] [employer] [place] [address] * Hepatitis B core antibody, total Blood (07/29/2024 11:01 AM OPTICAL DESIGNER) [facility] Hep B core IgG/IgM Nonreactive Nonreactive Blood 07/29/2024 11:0 1 AM OPTICAL DESIGNER 07/29/2024 11:32 AM OPTICAL DESIGNER Narrative [facility] - 07/29/2024 12:47 PM OPTICAL DESIGNER This lab is being obtained as part of a Kidney transplant evaluation, is time sensitive, and should only be drawn during the evaluation visit at [address] Result [facility] Jossie King MD LAB MICROBIOLOGY - GENERAL ORDERABLES Final Result Performing Organization Address [facility] de Phone Number [facility] Department of [place] [address] * (ABNORMAL) Hemoglobin A1c (07/29/2024 11:01 AM OPTICAL DESIGNER) [facility] Hgb A1C 9.0(H) 4.0 - 5.6 % Estimated Average Glucose 212 mg/dL [facility] Comment: The ADA recommends reporting an estimated Average Glucose (eAG) with all Hemoglobin A1c results using the equation derived from a study of 507 normal and diabetic adults. ??Minority populations were underrepresented and children were not included. ?? (Diabetes Care 2020; 43(S1): S66-S76). ??The eAG is not equivalent to a fasting glucose. Blood 07/29/2024 11:0 1 AM OPTICAL DESIGNER 07/29/2024 11:34 AM OPTICAL DESIGNER Narrative [facility] - 07/29/2024 11:53 AM OPTICAL DESIGNER This lab is being obtained as part of a Kidney transplant evaluation, is time sensitive, and should only be drawn during the evaluation visit at [address] Jossie King MD LAB BLOOD ORDERABL ES Final Result Performing Organization Address [facility] de Phone Number [facility] Department [place] [address] * HSV 2 IgG Antibody Blood (07/29/2024 11:01 AM OPTICAL DESIGNER) [facility] HSV 2 IgG Nonreactive Nonreactive Comment: Interpretive Data 1. Nonreactive: No detectable IgG antibody to HSV-2. 2. Equivocal: Presence or absence of detectable antibodies to HSV-2 cannot be determined and the test should be repeated. 3. Reactive: Indicates presence of detectable IgG antibody to HSV-2. Current interpretive data was last revised on 2022. Blood 07/29/2024 11:0 1 AM OPTICAL DESIGNER 07/29/2024 11:33 AM OPTICAL DESIGNER Narrative [facility] - 07/29/2024 1:44 PM OPTICAL DESIGNER This lab is being obtained as part of a Kidney transplant evaluation, is time sensitive, and should only be drawn during the evaluation visit at [address] Jossie King MD LAB MICROBIOLOGY - GENERAL ORDERABLES Final Result [facility] [employer] [place] [address] * (ABNORMAL) HSV 1 IgG Antibody Blood (07/29/2024 11:01 AM OPTICAL DESIGNER) Pathologist [facility] HSV 1 IgG Reactive( A) Nonreactive Comment: Interpretive Data 1. Nonreactive: No detectable IgG antibody to HSV-1. 2. Equivocal: Presence or absence of detectable antibodies to HSV-1 cannot be determined and the test should be repeated. 3. Reactive: Indicates presence of detectable IgG antibody to HSV-1. Current interpretive data was last revised on 2016. Blood 07/29/2024 11:0 1 AM OPTICAL DESIGNER 07/29/2024 11:33 AM OPTICAL DESIGNER Narrative [facility] - 07/29/2024 1:44 PM OPTICAL DESIGNER This lab is being obtained as part of a Kidney transplant evaluation, is time sensitive, and should only be drawn during the evaluation visit at [address] Lab. Jossie King MD LAB MICROBIOLOGY - GENERAL ORDERABLES Final Result [facility] [employer] [place] [address] * HIV 1/2 Antibody plus p24 Antigen Blood (07/29/2024 11:01 AM OPTICAL DESIGNER) Pathologist [facility] HIV 1/2 ab + p24 ag Nonreactive Nonreactive Comment:Nonreactive for HIV- 1 antigen and HIV-1/HIV-2 antibodies. No laboratory evidence of HIV infection. If acute HIV infection is suspected, consider testing for HIV-1 RNA. Current interpretive data was last revised on 22. Blood 07/29/2024 11:0 1 AM OPTICAL DESIGNER 07/29/2024 11:32 AM OPTICAL DESIGNER Narrative [facility] - 07/29/2024 12:13 PM OPTICAL DESIGNER This lab is being obtained as part of a Kidney transplant evaluation, is time sensitive, and should only be drawn during the evaluation visit at [address] Jossie King MD LAB MICROBIOLOGY - GENERAL ORDERABLES Final Result Performing Organization Address [facility] Co de Phone Number [facility] Department [place] [address] * Gamma GT (07/29/2024 11:01 AM OPTICAL DESIGNER) Pathologist [facility] GGT 22 10 - 50 Units/L Blood 07/29/2024 11:0 1 AM OPTICAL DESIGNER 07/29/2024 11:33 AM OPTICAL DESIGNER Narrative [facility] - 07/29/2024 12:40 PM OPTICAL DESIGNER This lab is being obtained as part of a Kidney transplant evaluation, is time sensitive, and should only be drawn during the evaluation visit at [address] Jossie King MD LAB BLOOD ORDERABL ES Final Result Performing Organization Address [facility] Co de Phone Number [facility] Department [place] [place] [address] * (ABNORMAL) Ferritin (07/29/2024 11:01 AM OPTICAL DESIGNER) Pathologist [facility] Ferritin 761(H) 30 - 400 ng/mL Blood 07/29/2024 11:0 1 AM OPTICAL DESIGNER 07/29/2024 11:33 AM OPTICAL DESIGNER Narrative [facility] - 07/29/2024 12:10 PM OPTICAL DESIGNER This lab is being obtained as part of a Kidney transplant evaluation, is time sensitive, and should only be drawn during the evaluation visit at [address] Lab. Jossie King MD LAB BLOOD ORDERABL ES Final Result Performing Organization Address [facility] de Phone Number [facility] Department [place] [address] * (ABNORMAL) Madiha-Ca virus (EBV) antibody panel Blood (07/29/2024 11:01 AM OPTICAL DESIGNER) [facility] EBV nuclear Ab Positive(A) Negative Comment:Indicates the presen ce of detectable IgG antibody to EBV Nuclear Antigen. EBV VCA IgG Positive(A) Negative [facility] Comment:Indicates the presen ce of antibody; 90% of the adult population will have been infected with EBV sometime in the past. EBV VCA IgM Negative Negative [facility] Comment:No detectable IgM an tibody to EBV-VCA. A negative result indicates no current infection with EBV. If clinical suspicion of acute EBV infection is present, testing should be repeated after one week. EBV interp Past Infection [facility] Blood 07/29/2024 11:0 1 AM OPTICAL DESIGNER 07/29/2024 11:33 AM OPTICAL DESIGNER Narrative [facility] - 07/29/2024 1:43 PM OPTICAL DESIGNER This lab is being obtained as part of a Kidney transplant evaluation, is time sensitive, and should only be drawn during the evaluation visit at [address] Lab. Jossie King MD LAB MICROBIOLOGY - GENERAL ORDERABLES Final Result Performing Organization Address [facility] Co de Phone Number [facility] Department [place] [address] * Creatinine, urine, random (07/29/2024 11:01 AM OPTICAL DESIGNER) [facility] Creatinine Ur 167.1 mg/dL Comment: Interpretive Data No reference range established. Current interpretive data was last revised 2019. Urine 07/29/2024 11:0 1 AM OPTICAL DESIGNER 07/29/2024 11:32 AM OPTICAL DESIGNER Narrative [facility] - 07/29/2024 12:18 PM OPTICAL DESIGNER This lab is being obtained as part of a Kidney transplant evaluation, is time sensitive, and should only be drawn during the evaluation visit at [facility] Lab. Jossie King MD LAB URINE ORDERABL ES Final Result [facility] Department [place] [address] * (ABNORMAL) Comprehensive metabolic panel (07/29/2024 11:01 AM OPTICAL DESIGNER) Sodium 136 135 - 145 mmol/L Potassium, pl 4.6 3.3 - 4.9 mmol/L [facility] Chloride 93(L) 97 - 110 mmol/L [facility] CO2 26 22 - 32 mmol/L [facility] Anion gap 17(H) 2 - 15 mmol/L [facility] BUN 65(H) 6 - 25 mg/dL [facility] Creatinine 8.07(H) 0.80 - 1.30 mg/dL [facility] Glucose 280(H) 70 - 199 mg/dL [facility] Comment: Interpretive Data Fasting glucose [...] 2022. Calcium 9.4 8.5 - 10.3 mg/dL [facility] Bilirubin, total 0.3 0.1 - 1.2 mg/dL [facility] Protein, pl 7.2 6.5 - 8.5 g/dL [facility] Albumin 3.8 3.5 - 5.0 g/dL [facility] Alk phos 99 40 - 130 Units/L [facility] ALT 30 7 - 55 Units/L [facility] AST 31 10 - 50 Units/L [facility] Blood 07/29/2024 11:0 1 AM OPTICAL DESIGNER 07/29/2024 11:33 AM OPTICAL DESIGNER Narrative [facility] - 07/29/2024 12:10 PM OPTICAL DESIGNER This lab is being obtained as part of a Kidney transplant evaluation, is time sensitive, and should only be drawn during the evaluation visit at [address] Jossie King MD LAB BLOOD ORDERABL ES Final Result Performing Organization Address [facility] Co de Phone Number [facility] [place] [address] * (ABNORMAL) CMV, IgG Blood (07/29/2024 11:01 AM OPTICAL DESIGNER) Pathologist [facility] CMV IgG Positive( A) Negative Comment: [...] CMV infection. Blood 07/29/2024 11:0 1 AM OPTICAL DESIGNER 07/29/2024 11:33 AM OPTICAL DESIGNER Narrative [facility] - 07/29/2024 1:44 PM OPTICAL DESIGNER This lab is being obtained as part of a Kidney transplant evaluation, is time sensitive, and should only be drawn during the evaluation visit at [address] Jossie King MD LAB MICROBIOLOGY - GENERAL ORDERABLES Final Result Performing Organization Address City/[facility]/ZIP Co de Phone Number [facility] Department [place] [address] * (ABNORMAL) CBC with auto differential (07/29/2024 11:01 AM OPTICAL DESIGNER) [facility] WBC 5.1 3.8 - 9.9 K/cumm Hgb 11.5(L) 13.0 - 17.5 g/dL [facility] Hct 34.4(L) 38.9 - 50.3 % [facility] Plt 208 150 - 400 K/cumm [facility] MPV 10.8 9.1 - 12.3 fL [facility] RBC 3.76(L) 4.30 - 5.80 M/cumm [facility] MCV 91.5 81.3 - 96.4 fL [facility] MCH 30.6 27.1 - 33.3 pg [facility] MCHC 33.4 32.3 - 35.7 g/dL [facility] RDW CV 14.3 11.1 - 14.9 % [facility] RDW SD 47.9 35.7 - 48.1 fL [facility] NRBC abs 0.00 0.00 - 0.01 K/cumm [facility] Blood 07/29/2024 11:0 1 AM OPTICAL DESIGNER 07/29/2024 11:34 AM OPTICAL DESIGNER Narrative [facility] - 07/29/2024 11:45 AM OPTICAL DESIGNER This lab is being obtained as part of a Kidney transplant evaluation, is time sensitive, and should only be drawn during the evaluation visit at [facility] Lab. us Jossie King MD LAB BLOOD ORDERABL ES Final Result [facility] Department [place] [address] * (ABNORMAL) Urinalysis reflex to microscopic (07/29/2024 10:53 AM OPTICAL DESIGNER) Color, ur Yellow Yellow Clarity, ur Cloudy(A) Clear [facility] Specific gravity, ur 1.022 1.003 - 1.030 [facility] pH, urine 6.0 [facility] Comment: Interpretive Data ? Urine pH is affected by diet, medications, systemic acid-base disturbances, and renal tubular function. ??pH may affect urinary stone formation. ??For example, urine pH below 6.0 may help reduce the tendency for calcium phosphate stones and pH greater than 6.0 may reduce the tendency for uric acid stone formation. Source: [facility] Current Interpretive Data was last revised on 2017 Protein, ur ql 2+(A) Negative [facility] Glucose, ur ql 4+(A) Negative [facility] Ketones, ur Negative Negative [facility] Bilirubin, ur Negative Negative [facility] Blood, ur 3+(A) Negative [facility] Urobilinogen, ur <2.0 <2.0 mg/dL [facility] Nitrite, ur Negative Negative [facility] Leukocyte esterase, ur 2+(A) Negative [facility] UA reflex comment Reflex to microscopic UA will be performed. [facility] Urine 07/29/2024 10:5 3 AM OPTICAL DESIGNER 07/29/2024 11:27 AM OPTICAL DESIGNER Narrative [facility] - 07/29/2024 11:29 AM OPTICAL DESIGNER This lab is being obtained as part of a Kidney transplant evaluation, is time sensitive, and should only be drawn during the evaluation visit at [facility] Lab. Jossie King MD LAB URINE ORDERABL ES Final Result [facility] Department [place] [address] documented in this encounter Visit Diagnoses Diagnosis [...] disease documented in this encounter Care Teams Termite Treater Relationship Specialty Start Date End Date Aditya Castro MD [address] [facility] [place] [address] PCP - General 10/17/19 Alondra Lambert, RN [address] [facility] [address] [place] [address] Drug Abuse Technician 03/06/24 Hamlet Ortega Jr., MD [address] [place] [address] Consulting Physician Cardiovascular Disease 05/10/24 documented as of this encounter
--- OUTSIDE RECORDS SUMMARY | 2024-08-24 04:39 | XMS_ITS | Encounter Summary ---
Author Organization [facility] Healthcare Address [address] [place] [address] Care Team Providers Care Ammunition Assembly I Laborer Name Role Phone Aditya Castro MD Primary Care Provider [phone] Alondra Lambert RN Unavailable [phone] Shannon Brock MD, Hamlet P. Unavailable [phone] Encounter Details Date Type Department Care Team (Late st Contact Info) Description 07/26/2024 Orders Only [facility] Transplant Kidney [address] [address] [address] [id number] [place], [place] [id number] Alondra Lambert, RN [address] [facility] [address] [place] [id number] ESRD (end stage renal disease) ([facility]/HCC) (HCC) (Primary Dx) Social History Tobacco Use [...] materials from doctor or pharmacy Never 12/01/2023 [facility] Utilities [...] any clubs o r organizations such as taoism groups, unions, fraternal or athletic groups, or [...] on file Legal Sex Male 3:42 AM ONCOLOGY REGISTRAR Gender Identity Not on file Sexual Orientation Not on file documented as of this encounter Plan of Treatment Not on file documented as of this encounter Results * (ABNORMAL) Oxalate (oxalic acid) (07/29/2024 10:53 AM ONCOLOGY REGISTRAR) Oxalate 12.3(H) <=2.0 mcmol/L [facility] Comment: High value suggestive of Primary Hyperoxaluria. However, if the patient has chronic kidney disease (GFR<30 mL/min/1.73m2), plasma oxalate values up to 30 mcmol/L can be normal. The [facility] is available to review case details and answer any questions regarding interpretation ([email or web address]; [phone]) ADDITIONAL INFORMATION This test has been modified from the inpatient services rn's instructions. Its performance characteristics were determined by [facility] in a manner consistent with CLIA requirements. This test has not been cleared or approved by the U.S. Food and Drug Administration. Test Performed by: [address] [address] Crop Duster: Jairo Higgins Ph.D.; CLIA# [id number] Blood 07/29/2024 10:5 3 AM ONCOLOGY REGISTRAR 07/29/2024 11:37 AM ONCOLOGY REGISTRAR us Jossie King MD LAB BLOOD ORDERABL ES Final Result [facility] [place] [address] [facility] documented in this encounter Visit Diagnoses Diagnosis ESRD (end stage renal disease) (CMS/HCC) (HCC)- Primary End stage renal disease documented in this encounter Care Teams Ammunition Assembly I Laborer Relationship Specialty Start Date End Date Aditya Castro MD [address] [facility] [place] [address] PCP - General 10/17/19 Alondra Lambert, RN 45[address] [facility] [address] [place] [id number] Spanner Operator 03/06/24 Hamlet Ortega Jr., MD [address] [place] [address] Consulting Physician Cardiovascular Disease 05/10/24 documented as of this encounter
--- OUTSIDE RECORDS SUMMARY | 2024-08-24 04:40 | XMS_ITS | Encounter Summary ---
Author Organization [facility] Healthcare Address [address] [place] [address] Care Team Providers Care Cylinder Handler Name Role Phone Aditya Castro MD Primary Care Provider [phone] Reason for Visit * Reason Onset Date Comments Anticoagulation 11/16/2023 Encounter Details Date Type Department Care Team (Late st Contact Info) Description 11/16/2023 Telephone Cardiovascular and Thoracic Surgery [address] [facility] [address] [place] [address] Margoth Grewal RN [address] [facility] [address], [place] [address] Anticoagulation Social History Tobacco Use [...] doctor or pharmacy Never 11/05/2023 [facility] Utilities Answer Date Recorded In the past 12 months has e [employer], [employer], or [employer] threatened to shut off services in your [...] often do you attend chur ch or taoist services? 1 to 4 times per year [...] to sleep or slept in a senior living (including now)? No 10/16/2023 Personal Safety Answer Date Recorded Have you ever been in or are you currently in a harmful physical or emotional relationship or is someone making you feel afraid or unsafe? 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 Male 3:42 AM MANAGER ZONE Gender Identity Not on file Sexual Orientation [...] on filedocumented in this encounter Care Teams Cylinder Handler Relationship Specialty Start Date End Date Aditya Castro MD [facility] [place] [address] PCP - General 10/17/19 documented as of this encounter
--- OUTSIDE RECORDS SUMMARY | 2024-08-24 04:40 | XMS_ITS | Encounter Summary ---
Author Organization [facility] Healthcare Address [address] [place] [address] Care Team Providers Care Single Needle Tufting Machine Operator Name Role Phone Aditya Castro MD Primary Care Provider [phone] Reason for Visit * Auth/Cert (Routine) Specialty Diagnoses / Procedures Referred By Aguilar t Referred To Contact Referral ID Status Reason Start Date Expiration Date Visits Re quested Visits Authorized [id number] 1 1 Encounter Details Date Type Department Care Team (Late st Contact Info) Description 11/09/2023 12:00 PM CDT Home Care Visit [address] [place] [address] Miriam Syed RN SN HOME VISIT Social [...] materials from doctor or pharmacy Never 11/05/2023 [facility] Utilities Answer Date Recorded In the past 12 months has th e [employer], gas, oil, or water company threatened to [...] often do you attend chur ch or hindu services? 1 to 4 times per year [...] on file Legal Sex Male 3:42 AM HEATING AND VENTILATING DRAFTER Gender Identity Not on file Sexual Orientation [...] Details Visit Type -SN Home Visit Discipline -Snf Problems Problem Description Start Date Status Goals Interve ntions Homebound Status Disciplines: Skilled Disciplines Patient's homebound status 11/05/2023 Active 1 goal linked to scheduled/documen marcelo intervention 1 goal intervention scheduled/documen marcelo in this visit Medications Disciplines: Snf Management of home medications 11/05/2023 Active 1 goal linked to scheduled/documen marcelo intervention 2 goal interventions scheduled/documen marcelo in this visit Monitor patient's vital signs every home health visit Disciplines: SN, PT, OT, COTTON GRADER, LIBRARY MANAGER, Skilled Disciplines Monitor patient's vital signs every home health visit. 11/05/2023 Active 1 goal linked to scheduled/documen marcelo intervention 1 goal intervention scheduled/documen marcelo in this visit Labs Disciplines: Snf Management of specimen samples, including lab draws, [...] visit during episode of care Description: Home annual giving director to measure vital signs during every [...] Scheduled documented in this encounter Care Teams Single Needle Tufting Machine Operator Relationship Specialty Start Date End Date Aditya Castro MD [address] [facility] [place] [address] PCP - General 10/17/19 documented as of this encounter
--- OUTSIDE RECORDS SUMMARY | 2024-08-24 04:40 | XMS_ITS | Encounter Summary ---
Author Organization [facility] Healthcare Address [address] [place] [address] Care Team Providers Care Gag Writer Name Role Phone Aditya Castro MD Primary Care Provider [phone] Encounter Details Date Type Department Care Team (Late st Contact Info) Description 11/16/2023 Telephone [facility] Case Management [address] [place] [address] Jose Manuel Moore BS Social [...] materials from doctor or pharmacy Never 12/01/2023 [facility] Utilities Answer Date Recorded In [...] often do you attend chur ch or scientology services? 1 to 4 times per year [...] on file Legal Sex Male 3:42 AM ELEMENT WINDING MACHINE TENDER Gender Identity Not on file Sexual Orientation Not on file documented as of this encounter Miscellaneous Notes * Telephone Encounter - Wyatt Rodriguez EP-C - 12/29/2023 9:02 AM CDT Final Follow-up Medications: Patient reports taking all medications as prescribed. Patient denies any questions regarding medications at this time. Cardiac Rehab Facility: Was contacted by [facility] Plant Maintenance Manager Follow-up Appointment: Patient had a follow up [...] medications. Cardiac Rehab Facility: Asked patient if [facility] cardiac rehab has contacted them yet. Patient states that they have contacted him and plan to schedule him in a few weeks. Plant Maintenance Manager Follow-up Appointment: Patient reports they see Dr. Mcnulty on 11/22/23 Readmission: Patient reports they have not been readmitted to a hospital since being discharged from [facility]. Will plan to make 30-60-day f/u [...] on filedocumented in this encounter Care Teams Gag Writer Relationship Specialty Start Date End Date Aditya Castro MD [address] [facility] [place] [address] PCP - General 10/17/19 documented as of this encounter
--- OUTSIDE RECORDS SUMMARY | 2024-08-24 04:40 | XMS_ITS | Encounter Summary ---
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), CABGx3, Sternal Plating Encounter Details Date Type Department Care Team (Late st Contact Info) Description 11/22/2023 9:30 AM CDT Office Visit Cardiovascular and Thoracic Surgery [address] [facility] [address] [place] [address] Lorne Mcnulty MD [address] [facility] [address] [place] [address] 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 Teran within next month. Dr. Ramaden or your Primary care doctor needs to take over your Coumadin (warfarin) regulation and bloodwork Possible CoaguCheck machine for home blood test, ASK the doctor who will take over your anticoagulation if he/she will order this INR GOAL FOR ON-X MECHANICAL AORTIC VALVE REPLACEMENT: 2.0-2.5 UNTIL JANUARY 14 THEN CAN DECREASE INR GOAL TO 1.5-2.0 HALF-WAY Antibiotic Prophylaxis before dental visits for prevention of valve endocarditis Antibiotic Prophylaxis Taking an antibiotic before or immediately after a surgical procedure in order to prevent an infection is called antibiotic prophylaxis. It may be recommended by a primary doctor, a salesperson burial needs, or an orthopedist for patients who are [...] Care Everywhere. * Cardiac Rehabilitation (General Information) (Kyrgyz) documented in this encounter Progress Notes * [...] PUMP: Continue Omnipod 5 insulin pump with [employer] G6 CGM at home settings: TIME BASAL RATE TOTAL BASAL DAILY DOSE: 65.85 0330 1.7 units/hour 0800 0.8 units/hour 2000 5.8 units/hour, Disp: , Rfl: levothyroxine (SYNTHROID) 25 mcg tablet, Take 1 tablet (25 mcg total) by mouth glove cleaner beforebreakfast, Disp: 30 tablet, Rfl: 1 metoprolol [...] for this visit: 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[place] artery of [place] heart with stable angina pectoris (CMS/HCC) (HCC) [...] basis only. Lorne Mcnulty MD Cardiothoracic Surgery [facility] documented in this encounter Plan of Treatment Not on file documented as of this encounter Visit Diagnoses Diagnosis 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[place] artery of [place] heart with stable angina pectoris (CMS/HCC) (HCC)- [...] documented as of this encounter Care Teams Slurry Plant Operator Relationship Specialty Start Date End Date Aditya Castro MD [address] [facility] [place]PT [place] [address] PCP - General 10/17/19 documented as of this encounter
--- OUTSIDE RECORDS SUMMARY | 2024-08-24 04:40 | XMS_ITS | Encounter Summary ---
Author Organization [facility] Healthcare Address [address] [place] [address] Care Team Providers Care Title Search Manager Name Role Phone Aditya Castro MD Primary Care Provider [phone] Reason for Visit * Auth/Cert (Routine) Specialty Diagnoses / Procedures Referred By Aguilar t Referred To Contact Referral ID Status Reason Start Date Expiration Date Visits Re quested Visits Authorized [id number] 1 1 Encounter Details Date Type Department Care Team (Late st Contact Info) Description 11/20/2023 12:00 PM CDT Home Care Visit [address] [place] [address] Miriam Syed RN SN HOME VISIT Social [...] materials from doctor or pharmacy Never 11/05/2023 [facility] Utilities Answer Date Recorded In the past 12 months has th e [employer] gas, oil, or water company threatened [...] often do you attend chur ch or synagogue services? 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 Gender Identity Not on file Sexual [...] Blood 11/20/2023 1:19 PM CDT us Lorne Mcnutly MD POINT OF CARE TEST ORDERAB LES Final Result [facility] documented in this encounter Visit Diagnoses Not on filedocumented in this encounter Home Health Visit - Care Plan Visit Details Visit Type -SN Home Visit Discipline -Jail Problems Problem Description Start Date Status Goals Interve ntions Homebound Status Disciplines: Skilled Disciplines Patient's homebound status 11/05/2023 Active 1 goal linked to scheduled/documen marcelo intervention 1 goal intervention scheduled/documen marcelo in this visit Medications Disciplines: Jail Management of home medications 11/05/2023 Active 1 goal linked to scheduled/documen marcelo intervention 2 goal interventions scheduled/documen marcelo in this visit Monitor patient's vital signs every home health visit Disciplines: SN, PT, OT, TICKET PULLER, LEAN SENSEI, Skilled Disciplines Monitor patient's vital signs every home health visit. 11/05/2023 Active 1 goal linked to scheduled/documen marcelo intervention 1 goal intervention scheduled/documen marcelo in this visit Labs Disciplines: Jail Management of specimen samples, including lab draws, [...] visit during episode of care Description: Home restaurant crew to measure vital signs during every home [...] Scheduled documented in this encounter Care Teams Title Search Manager Relationship Specialty Start Date End Date Aditya Castro MD [address] [facility] [place] [address] PCP - General 10/17/19 documented as of this encounter
--- OUTSIDE RECORDS SUMMARY | 2024-08-24 04:40 | XMS_ITS | Encounter Summary ---
Author Organization [facility] Healthcare Address [address] [place] [address] Care Team Providers Care Bobbin Doffer Name Role Phone Aditya Castro MD Primary Care Provider [phone] Reason for Visit * Auth/Cert (Routine) Specialty Diagnoses / Procedures Referred By Aguilar t Referred To Contact Referral ID Status Reason Start Date Expiration Date Visits Re quested Visits Authorized [id number] 1 1 Encounter Details Date Type Department Care Team (Late st Contact Info) Description 11/27/2023 10:30 AM CDT Home Care Visit [facility] [address] [address] [address] [place] [address] Miriam Syed RN SN HOME VISIT Social [...] from doctor or pharmacy Never 11/05/2023 [facility] Utilities Answer Date Recorded In the past 12 months has th e [employer], gas, oil, or water company threatened to [...] often do you attend chur ch or mormon services? 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
--- OUTSIDE RECORDS SUMMARY | 2024-08-24 04:40 | XMS_ITS | Encounter Summary ---
Author Organization [facility] Healthcare Address [address] [place] [address] Care Team Providers Care Sinter Machine Operator Name Role Phone Aditya Castro MD Primary Care Provider [phone] Reason for Visit * Auth/Cert (Routine) Specialty Diagnoses / Procedures Referred By Aguilar t Referred To Contact Referral ID Status Reason Start Date Expiration Date Visits Re quested Visits Authorized [id number] 1 1 Encounter Details Date Type Department Care Team (Late st Contact Info) Description 12/01/2023 10:30 AM CDT Home Care Visit [address] [place] [address] Miriam Syed RN SN OASIS DISCHARGE Social [...] doctor or pharmacy Never 12/01/2023 [facility] Utilities Answer Date Recorded In the past 12 months has th e [employer], gas, oil, or water company threatened to [...] any clubs o r organizations such as caodaism groups, unions, fraternal or athletic groups, or [...] on file 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 Gender Identity Not on file Sexual [...] Visit Type -SN OASIS Dischar ge Discipline -Mcfp Problems Problem Description Start Date Status Goals Interve ntions Homebound Status Disciplines: Skilled Disciplines Patient's homebound status 11/05/2023 Resolved on 12/01/2023 1 goal linked to scheduled/docume nted intervention 1 goal intervention scheduled/documen marcelo in this visit Medications Disciplines: Mcfp Management of home medications 11/05/2023 Resolved on 12/01/2023 1 goal linked to scheduled/docume nted intervention 2 goal interventions scheduled/documen marcelo in this visit Monitor patient's vital signs every home health visit Disciplines: SN, PT, OT, PATIENT TRANSPORT OFFICER, HISTORY PROFESSOR, Skilled Disciplines Monitor patient's vital signs every home health visit. 11/05/2023 Resolved on 12/01/2023 1 goal linked to scheduled/docume nted intervention 2 goal interventions scheduled/documen marcelo in this visit Labs Disciplines: Mcfp Management of specimen samples, including lab draws, [...] visit during episode of care Description: Home cover stitch machine operator to measure vital signs during every home health visit during episode of care. Monitor patient's vital signs every home health visit Adequate for Discharge No Home cover stitch machine operator to measure vital signs during every [...] techniques. documented in this encounter Care Teams Sinter Machine Operator Relationship Specialty Start Date End Date Aditya Castro MD [address] [facility] [place] [address] PCP - General 10/17/19 documented as of this encounter
--- OUTSIDE RECORDS SUMMARY | 2024-08-24 04:40 | XMS_ITS | Encounter Summary ---
Author Organization [facility] Healthcare Address [address] [place] [address] Care Team Providers Care Gag Writer Name Role Phone Aditya Castro MD Primary Care Provider [phone] Reason for Visit * Auth/Cert (Routine) Specialty Diagnoses / Procedures Referred By Aguilar t Referred To Contact Referral ID Status Reason Start Date Expiration Date Visits Re quested Visits Authorized [id number] 1 1 Encounter Details Date Type Department Care Team (Late st Contact Info) Description 11/23/2023 12:00 PM CDT Home Care Visit [address] [address] [address] [place] [address] Miriam Syed RN SN HOME VISIT Social [...] materials from doctor or pharmacy Never 11/05/2023 [facility] Utilities Answer Date Recorded In the past 12 months has th e [employer], gas, oil, or water company threatened to [...] often do you attend chur ch or confucianism services? 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 Gender Identity Not on file Sexual Orientation [...] Details Visit Type -SN Home Visit Discipline -Retirement Problems Problem Description Start Date Status Goals Interve ntions Homebound Status Disciplines: Skilled Disciplines Patient's homebound status 11/05/2023 Active 1 goal linked to scheduled/documen marcelo intervention 1 goal intervention scheduled/documen marcelo in this visit Medications Disciplines: Retirement Management of home medications 11/05/2023 Active 1 goal linked to scheduled/documen marcelo intervention 2 goal interventions scheduled/documen marcelo in this visit Monitor patient's vital signs every home health visit Disciplines: SN, PT, OT, ELECTRICIAN REFINERY, HYDROELECTRIC MACHINERY MECHANIC HELPER, Skilled Disciplines Monitor patient's vital signs every home health visit. 11/05/2023 Active 1 goal linked to scheduled/documen marcelo intervention 1 goal intervention scheduled/documen marcelo in this visit Labs Disciplines: Retirement Management of specimen samples, including lab draws, [...] visit during episode of care Description: Home emergency room clinician to measure vital signs during every [...] Scheduled documented in this encounter Care Teams Gag Writer Relationship Specialty Start Date End Date Aditya Castro MD [address] [facility] [place] [address] PCP - General 10/17/19 documented as of this encounter
--- OUTSIDE RECORDS SUMMARY | 2024-08-24 04:40 | XMS_ITS | Encounter Summary ---
Author Organization [facility] Healthcare Address [address] [place] [address] Care Team Providers Care Spring Tacker Name Role Phone Aditya Castro MD Primary Care Provider [phone] Reason for Visit * Auth/Cert (Routine) Specialty Diagnoses / Procedures Referred By Aguilar t Referred To Contact Referral ID Status Reason Start Date Expiration Date Visits Re quested Visits Authorized [id number] 1 1 Encounter Details Date Type Department Care Team (Late st Contact Info) Description 11/16/2023 12:00 PM CDT Home Care Visit [address] [place] [address] Miriam Syed RN SN HOME VISIT Social [...] from doctor or pharmacy Never 11/05/2023 [facility] Utilities Answer Date Recorded In the past 12 months has th e [employer], gas, oil, or water company threatened to [...] often do you attend chur ch or jew services? 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 Gender Identity Not on file Sexual [...] Details Visit Type -SN Home Visit Discipline -Fpc Problems Problem Description Start Date Status Goals Interve ntions Homebound Status Disciplines: Skilled Disciplines Patient's homebound status 11/05/2023 Active 1 goal linked to scheduled/documen marcelo intervention 1 goal intervention scheduled/documen marcelo in this visit Medications Disciplines: Fpc Management of home medications 11/05/2023 Active 1 goal linked to scheduled/documen marcelo intervention 2 goal interventions scheduled/documen marcelo in this visit Monitor patient's vital signs every home health visit Disciplines: SN, PT, OT, MANAGER HUMAN CAPITAL, MICROSOFT DEVELOPER, Skilled Disciplines Monitor patient's vital signs every home health visit. 11/05/2023 Active 1 goal linked to scheduled/documen marcelo intervention 1 goal intervention scheduled/documen marcelo in this visit Labs Disciplines: Fpc Management of specimen samples, including lab draws, [...] visit during episode of care Description: Home medieval english literature professor to measure vital signs during every home [...] Scheduled documented in this encounter Care Teams Spring Tacker Relationship Specialty Start Date End Date Aditya Castro MD [address] [facility] [place] [address] PCP - General 10/17/19 documented as of this encounter
--- OUTSIDE RECORDS SUMMARY | 2024-08-24 04:40 | XMS_ITS | Encounter Summary ---
Author Organization [facility] Healthcare Address [address] [place] [address] Care Team Providers Care Home Security Professional Name Role Phone Aditya Castro MD Primary Care Provider [phone] Reason for Visit * Reason Onset Date Comments Anticoagulation 11/09/2023 Encounter Details Date Type Department Care Team (Late st Contact Info) Description 11/09/2023 Telephone Cardiovascular and Thoracic Surgery [address] [facility] [address] [place] [address] Margoth Grewal RN [address] [facility] [address], [place] [address] Anticoagulation Social History Tobacco Use [...] materials from doctor or pharmacy Never 11/05/2023 [facility] Utilities Answer Date Recorded In the past 12 months has e [employer], [email or web address], or [employer] threatened to shut off services in your [...] often do you attend chur ch or oriental orthodox services? 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
--- OUTSIDE RECORDS SUMMARY | 2024-08-24 04:40 | XMS_ITS | Encounter Summary ---
Author Organization [facility] Healthcare Address [address] [place] [address] Care Team Providers Care Public Improvement Inspector Name Role Phone Aditya Castro MD Primary Care Provider [phone] Reason for Visit * Reason Onset Date Comments Anticoagulation 11/13/2023 Encounter Details Date Type Department Care Team (Late st Contact Info) Description 11/13/2023 Telephone Cardiovascular and Thoracic Surgery [address] [facility] [address] [place] [address] Margoth Grewal RN [address] [facility] [address], [place] [address] Anticoagulation Social History Tobacco Use [...] materials from doctor or pharmacy Never 11/05/2023 [facility] Utilities Answer Date Recorded In the past 12 months has e [email or web address], [employer], or [employer] threatened to shut off services in your [...] often do you attend chur ch or yarsani services? 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 Mcnulty Contact: Miriam with [facility] calling to report INR 2.1. New dosing instructions INR 2.1 Continue Coumadin 2 mg daily for ON-X mechanical AVR. Recheck INR 11/16/23. Miriam will instruct pt. documented in this encounter Plan of Treatment Not on file documented as of this encounter Visit Diagnoses Not on filedocumented in this encounter Care Teams Public Improvement Inspector Relationship Specialty Start Date End Date Aditya Castro MD [address] [place] [address] [place] [address] PCP - General 10/17/19 documented as of this encounter
--- OUTSIDE RECORDS SUMMARY | 2024-08-24 04:40 | XMS_ITS | Encounter Summary ---
Author Organization [facility] Healthcare Address [address] [place] [address] Care Team Providers Care Infrastructure Software Engineer Name Role Phone Aditya Castro MD Primary Care Provider [phone] Encounter Details Date Type Department Care Team (Late st Contact Info) Description 11/05/2023 Plan of Care Documentation [facility] Health [address] [address] [address] [place] [id number] Social History Tobacco Use Types Packs/Day Years [...] materials from doctor or pharmacy Never 11/05/2023 [facility] Utilities Answer Date Recorded In the past 12 months has e [employer], gas, oil, or water company threatened to [...] any clubs o r organizations such as confucianism groups, unions, fraternal or athletic groups, or [...] on file 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 The patient is under my care, and I have authorized serviceson this plan of care and will periodically review the plan. The patient had a [id number] encounter with Lorne Mcnulty MD on 10/20/2023 and the encounter was related to the primary reason for home health care. documented in this encounter Plan of Treatment Not on file documented as of this encounter Visit Diagnoses Not on filedocumented in this encounter Care Teams Infrastructure Software Engineer Relationship Specialty Start Date End Date Aditya Castro MD [address] [facility] [place] [address] PCP - General 10/17/19 documented as of this encounter
--- OUTSIDE RECORDS SUMMARY | 2024-08-24 04:40 | XMS_ITS | Encounter Summary ---
Author Organization [facility] Healthcare Address [address] [place] [address] Care Team Providers Care Pound Keeper Name Role Phone Aditya Castro MD Primary Care Provider [phone] Reason for Visit * Reason Onset Date Comments Anticoagulation 11/20/2023 Encounter Details Date Type Department Care Team (Late st Contact Info) Description 11/20/2023 Telephone Cardiovascular and Thoracic Surgery [address] [facility] [address] [place] [address] Margoth Grewal RN [address] [facility] [address] [place] [address] Anticoagulation Social History Tobacco Use [...] materials from doctor or pharmacy Never 11/05/2023 [facility] Utilities Answer Date Recorded In the past 12 months has e [employer], [employer], or [employer] threatened to shut off services in your [...] often do you attend chur ch or shinto services? 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
--- OUTSIDE RECORDS SUMMARY | 2024-08-24 04:40 | XMS_ITS | Encounter Summary ---
Author Organization [facility] Healthcare Address [address] [place] [address] Care Team Providers Care House Steward/Stewardess Name Role Phone Aditya Castro MD Primary Care Provider [phone] Reason for Visit * Auth/Cert (Routine) Specialty Diagnoses / Procedures Referred By Aguilar t Referred To Contact Referral ID Status Reason Start Date Expiration Date Visits Re quested Visits Authorized [id number] 1 1 Encounter Details Date Type Department Care Team (Late st Contact Info) Description 11/13/2023 12:45 PM CDT Home Care Visit [address] [address] [address] [place] [address] Miriam Syed RN SN HOME VISIT Social [...] materials from doctor or pharmacy Never 11/05/2023 [facility] Utilities Answer Date Recorded In the past 12 months has th e [employer], gas, oil, or water company threatened to [...] any clubs o r organizations such as restorationism groups, unions, fraternal or athletic groups, or [...] on file 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 Gender Identity Not on file Sexual [...] Details Visit Type -SN Home Visit Discipline -Senior Living Problems Problem Description Start Date Status Goals Interve ntions Homebound Status Disciplines: Skilled Disciplines Patient's homebound status 11/05/2023 Active 1 goal linked to scheduled/documen marcelo intervention 1 goal intervention scheduled/documen marcelo in this visit Medications Disciplines: Senior Living Management of home medications 11/05/2023 Active 1 goal linked to scheduled/documen marcelo intervention 2 goal interventions scheduled/documen marcelo in this visit Monitor patient's vital signs every home health visit Disciplines: SN, PT, OT, MEDICAL EQUIPMENT REPAIRER, MEASURING MACHINE TENDER, Skilled Disciplines Monitor patient's vital signs every home health visit. 11/05/2023 Active 1 goal linked to scheduled/documen marcelo intervention 1 goal intervention scheduled/documen marcelo in this visit Labs Disciplines: Senior Living Management of specimen samples, including lab draws, [...] visit during episode of care Description: Home solution design and analysis manager to measure vital signs during every home [...] Scheduled documented in this encounter Care Teams House Steward/Stewardess Relationship Specialty Start Date End Date Aditya Castro MD [address] [facility] [place] [address] PCP - General 10/17/19 documented as of this encounter
--- OUTSIDE RECORDS SUMMARY | 2024-08-24 04:41 | XMS_ITS | Encounter Summary ---
Author Organization [facility] Healthcare Address [address] [place] [address] Care Team Providers Care Energy Analyst Name Role Phone Aditya Castro MD Primary Care Provider [phone] Encounter Details Date Type Department Care Team (Late st Contact Info) Description 11/04/2023 Telephone [facility] Home Care Services [address] [place] [address] Lissette Slade Social History Tobacco Use Types [...] materials from doctor or pharmacy Never 11/05/2023 [facility] Utilities Answer Date Recorded In the past 12 months has [facility] [employer], gas, oil, or water company threatened to [...] often do you attend chur ch or latter day services? 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 Interviewed patient via phone post hospitalization. [facility]. Confirmed homebound status. Informed patient that staff will be calling within 48 hours regarding an appointment. documented in this encounter Plan of Treatment Not on file documented as of this encounter Visit Diagnoses Not on filedocumented in this encounter Care Teams Energy Analyst Relationship Specialty Start Date End Date Aditya Castro MD [address] [facility] [place] [address] PCP - General 10/17/19 documented as of this encounter
--- OUTSIDE RECORDS SUMMARY | 2024-08-24 04:41 | XMS_ITS | Encounter Summary ---
Author Organization [facility] Healthcare Address [address] [place] [address] Care Team Providers Care Atomizer Assembler Name Role Phone Aditya Castro MD Primary Care Provider [phone] Reason for Visit * Auth/Cert (Routine) Specialty Diagnoses / Procedures Referred By Aguilar t Referred To Contact Referral ID Status Reason Start Date Expiration Date Visits Re quested Visits Authorized [id number] 1 1 Encounter Details Date Type Department Care Team (Latest Contact Info) Description 11/05/2023 9:00 AM CDT Home Care Visit [address] [place] [address] Miriam Syed RN SN OASIS START OF [...] doctor or pharmacy Never 11/05/2023 [facility] Utilities Answer Date Recorded In the past [...] any clubs o r organizations such as jain groups, unions, fraternal or athletic groups, or [...] on file 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 Gender Identity Not on file Sexual [...] Body Mass Index 38.31 10/17/2023 12:52 PM PAINT LINE SUPERVISOR documented in this encounter Miscellaneous Notes * [...] at time of Medication reconciliation, weekly medication systems planner filled by SN at visit with patient Re-hospitalization risk: high Barriers to care/social determinants: None RECOMMENDATIONS POC confirmed with Dr.: Lorne Mcnulty MD Plan for my discipline: SN for CAD post-op follow, wound care, disease process management & education, medication management Other disciplines ordered/recommended: Penitentiary and Physical Therapy Supply/HME/equipment needs or issues: [...] patient does not have cognitive impairments, then [id number] would not apply. M1800 - Grooming 1- [...] guidance, if patient requires standby assistance (a ??stage technician??) to dress safely or requires verbal cueing/reminders due to physical/cognitive/environmental barriers to complete task safely, then Code 2. M1820 - Dress Lower Body 1- some help 2- needs assist Changed from 1 to 2. SN OASIS - noted needs minimum assist to dress lower body. According to OASIS guidance, if patient requires standby assistance (a ??stage technician??) to dress safely or requires verbal cueing/reminders [...] -SN OASIS Start o f Care Discipline -Penitentiary Problems Problem Description Start Date Status Goals Interve ntions Homebound Status Disciplines: Skilled Disciplines Patient's homebound status 11/05/2023 Active 1 goal linked to scheduled/documen marcelo intervention 1 goal intervention scheduled/documen marcelo in this visit Medications Disciplines: Penitentiary Management of home medications 11/05/2023 Active 1 goal linked to scheduled/documen marcelo intervention 2 goal interventions scheduled/documen marcelo in this visit Monitor patient's vital signs every home health visit Disciplines: SN, PT, OT, SENIOR POLICY ASSOCIATE, BUCKLE FRAME SHAPER, Skilled Disciplines Monitor patient's vital signs every [...] visit during episode of care Description: Home refrigerator repair technician to measure vital signs during every [...] Scheduled documented in this encounter Care Teams Atomizer Assembler Relationship Specialty Start Date End Date Aditya Castro MD [address] [facility] [place] [address] PCP - General 10/17/19 documented as of this encounter
--- OUTSIDE RECORDS SUMMARY | 2024-08-24 04:42 | XMS_ITS | Encounter Summary ---
Author Organization [facility] Healthcare Address [address] [place] [address] Care Team Providers [facility] Name Role Phone Aditya Correa MD Primary Care Provider [phone] Reason for Referral * Consultation (Routine) - Pending Review Specialty Diagnoses / Procedures Referred By Aguilar t Referred To Contact Cardiac Rehabilitation Diagnoses S/P CABG x 3 NSTEMI (non-ST elevated myocardial infarction) (CMS/HCC) (HCC) S/P AVR Jaqueline Valero MD Phone: tel: fax: [place] [address] [place] [phone] Phone: tel: Referral ID Status Reason Start Date Expiration Date Visits Requested Visits Authorized [id number] Pending Review Specialty Services Required 10/24/2023 11/22/2024 1 1 Question Answer Please select the performing region: External Order [171] To loc/pos [facility] Inpatient POS [[id number]] Select a phase: Phase 2 # of visits: [address] Valero is patient's Cardiothoracic Surgeon and will not be managing patient during Cardiac Rehab. Please contact patient's established Title Vehicle Service Attendant, Dr. Hamlet Ortega, for additional information. 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 (HCC) Aortic stenosis, severe Jaqueline Valero MD Phone: tel: fax: [facility] Home Care Services [address] [address] Referral ID Status Reason Start Date Expiration Date Visits Requested Visits Authorized [id number] Pending Review Specialty Services Required 10/20/2023 11/18/2024 1 1 Question [facility] Primary disciplines requested: Longterm Home Health Services Disease and Medication Management, [...] and safety, Pain and impaired mobility post-op SPECIALIST Reason for Visit * Auth/Cert Specialty Diagnoses / Procedures Referred By Contac t Referred To Contact Diagnoses CAD in eek artery Needs CABG (12 or 1300) Procedures N Referral ID Status Reason Start Date Expiration Date Visits Re quested Visits Authorized [id number] 1 1 Encounter Details Date Type Department Care Team (Latest Contact Info) Description 10/13/2023 11:18 PM TREE SPECIALIST - 11/03/2023 7:30 PM CDT Hospital Encounter [facility] [address] [place] [address] Julio Lopez [address] [facility] [address] Frank Cody MD [address] [facility] [place] [address] Jovani Kat DO [address] [place] [address] Jqaueline Valero MD [address] [facility] [address] [place], [place] [id number] 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/HCC) ([facility]) (Primary Dx); CAD in eek artery; Aortic stenosis, severe; S/P CABG x 3; NSTEMI (non-ST elevated myocardial infarction) (CMS/[facility]) ([facility]); S/P AVR Discharge Disposition: Discharge to home, home health skilled care Social History Tobacco Use Types Packs/Day Years Used Date Smoking Tobacco: Never Smokeless Tobacco: Former Alcohol Use Standard Drinks/Week Comments No 0 (1 standard drink = 0.6 oz pur e alcohol) [facility] Utilities Answer Date Recorded In the [...] often do you attend chur ch or buddhism services? 1 to 4 times per year [...] on file Legal Sex Male 3:42 AM TREE SPECIALIST Gender Identity Not on file Sexual [...] (5' 10 ) 10/17/2023 12: 52 PM TREE SPECIALIST Body Mass Index 39.48 10/17/2023 12:52 PM TREE SPECIALIST documented in this encounter Discharge Summaries * [...] 53-year-old male who has been transferred to [facility] for consideration of coronary artery bypass grafting and aortic valve replacement. His past medical history includes severe CAD with previous PCI, paroxysmal atrial fibrillation, type 1 diabetes mellitus, ESRD on peritoneal dialysis, hypertension, hyperlipidemia, and sleep apnea. He presented to [facility] in [place], [place] on 10/09/23 complaining of fatigue, malaise, [...] the catheterization. He has been transferred to [facility] for consideration of coronary artery [...] THIS IS FOR THE INSULIN PUMP: Continue OmnipClickN KIDS 5 insulin pump with One-Song G6 CGM at home settings: TIME BASAL RATE TOTAL BASAL DAILY DOSE: 65.85 0330 1.7 units/hour 0800 0.8 units/hour 2000 5.8 units/hour Commonly known as: HumaLOG, ADMELOG levothyroxine 25 mcg tablet Take 1 tablet (25 mcg total) by mouth log deck tender before breakfast Commonly known as: SYNTHROID Start [...] REDNESS OR DRAINAGE OF INCISIONS OR FEVERS [phone] Diet Instructions Adult Discharge Diet Diet Type: Restrict salt intake to less than 4000 mg per day Low fat intake Diabetic renal diet. Heart healthy diet. Limit foods high in Vitamin K while taking Coumadin. High protein intake. Other Instructions Ambulatory referral to Home Health Service Line: Home Health Primary disciplines requested: Longterm Home Health Services: Disease and Medication Management [...] Center 11/22/2023 9:30 AM Jaqueline Valero MD [facility] [id number] PSA Contact Information for Follow-ups [facility] Home Care Services Specialty: Home Health and Hospice [address] [facility] [address] Next Steps: Follow up Questions: Service Line: Home Health Primary disciplines requested: Longterm Home Health Services: Disease and Medication Management [...] Family Medicine Relationship: PCP - General [address] [facility] [id number] Next Steps: Follow up Comments: Follow up with established provider: 4 weeks Questions: To provider: ADITYA CORREA [facility] [address] [place] [phone] Next Steps: Follow up Comments: Dr. Valero is patient's Cardiothoracic Surgeon and will not be managing patient during Cardiac Rehab. Please contact patient's established Title Vehicle Service Attendant, Dr. Hamlet Ortega, for additional information. Questions: Please select the performing region: External Order To loc/pos: [facility] Inpatient POS Select a phase: Phase 2 # of visits: 1 Referral Status: External - Ready to Schedule Cosigned by Jaqueline Valero MD at 11/04/2023 2:05 PM CDT documented in this encounter Discharge Instructions * Discharge Instr - Diet* Carly Spencer RD - 10/20/2023 3:29 PM TREE SPECIALIST Diabetic renal diet. Heart healthy diet. Limit foods high in Vitamin K while taking Coumadin. High protein intake. SPECIALIST SPECIALIST * Attachments The following attachments cannot be sent through Care Everywhere. * CABG (Coronary Artery Bypass Graft) (Discharge Care) ([place]) * Transcatheter Aortic Valve Replacement (Discharge Care) ([place]) * Sternal Precautions (Field Contractor) ([place]) * Warfarin (By mouth) ([place]) documented in this encounter Medications at Time [...] PUMP: Continue Omnipod 5 insulin pump with Agolocom G6 CGM at home settings: TIME BASAL RATE TOTAL BASAL DAILY DOSE: 65.85 0330 1.7 units/hour 0800 0.8 units/hour 2000 5.8 units/hour 06/29/2022 ketoconazole (NIZORAL) 2 % shampoo APPLY EXTERNALLY 2 TO 3 TIMES EVERY WEEK NEEDED 04/23/2019 levothyroxine (SYNTHROID) 25 mcg tabletIndications:hy pothyroidism Take 1 tablet (25 mcg total) by mouth log deck tender before breakfast 30 tablet 1 11/04/2023 Linzess [...] (20 mg total) by mouth daily peg 177-rvjgmgsxklza-htd cerin (ARTIFICAL TEARS) 1-0.2-0.2 % ophthalmic solution [...] 1 tablet (25 mcg total) by mouth log deck tender before breakfast 30 tablet 1 11/04/2023 HYDROcodone-acetamin [...] 53 y.o. male. Admit Dx: CAD in eek artery [I25.10]. Admitted on 10/13/2023. Patient's intake is adequate. Objective Dietary Orders (From admission, onward) Start Ordered 10/26/23 1235 Adult Diet Restricted; Consistent Carbohydrate; Renal; 1000mL = Diet 700/Nursing 300 Diet effective now Question Answer Comment ([facility]) Diet type Restricted Diabetic: Consistent [...] Review: Scheduled Meds: al & mag hydroxide cpjwiabvihp-mzsgnryrnhbdeoh-csmuctlsr-nystatin, 20 mL, swish & swallow, Q6H amiodarone, [...] heparin, 0-33 Units/kg/hr, Last Rate: Stopped (11/03/23 6513) INSULIN SUBCUTANEOUS PUMP insulin lispro, 0-25 Units [...] of Weight Used for Estimated Protein : [place] Protein Needs Based on g/k.4 Total Protein Estimated Needs (gm): 105.42 Kcal/kg Type of Weight Used for Estimated Kcals: [place] Kcal/k Total Kcal/kg Estimated Needs : 2259 [...] consistent carbohydrate and renal diet. Plan: Added instrument mechanics supervisor check to pt's diet to help with [...] on peritoneal dialysis initially presented to [facility] in [facility] on October 09 for symptoms [...] a cardiology consultation which lead to a [facility]. Results were notable for severe CAD [...] regimen of PD Follow-up with his primary svp research and strategic analysis Fernandez Carranza MD [facility]: MD Chula Domínguez PA Graeme Mindel, MD Justin Krafft, PA Derek Larson, MD FASN Rose Mattli, NP Rohan Devanpalli, MD Candace Shirley, NP [address] [place], [place] [id number] [phone] - Office [phone] - Fax * Nusrat Us [facility] - 11/03/2023 11:05 AM CDT Warfarin monitoring [...] 7.6 monitor for now Joselin Strickland MD [facility] SUBJECTIVE: Mr. Garvin is doing well overall. [...] Dose Route Frequency al & mag hydroxide xnuukqgpsqs-svfxjpkxtxbwdxz-latppsqyl-nystatin (MAGIC MOUTHWASH) oral suspension 1-1-1-1 20 mL [...] sternotomy healing well ASSESSMENT/PLAN: CAD - prior [place] with multiple PCI - C showed multivessel [...] -venous doppler shows no DVT SHAMIKA Donald [facility] 11/03/2023 10:59 AM * [...] yesterday Levothyroxine 25 mcg started per Endocrine Thompson prn for pain control CPAP nightly Stress ulcer prophylaxis: Protonix DVT prophylaxis: coumadin dosing PT/OT Plan reviewed with LESLY Vallecillo 11/02/2023 * Nida Starr, GLASSWARE SELECTOR - 11/02/2023 2:54 PM CDT Physical Therapy [...] Comments Incentive spirometer x 10 reps fom [id number] Transfer 1 Transfer From 1 Sit;Chair with [...] End Date End Date PT LT - [facility] 1 10/21/23 11/04/23 -- Goal Details: Patient will perform supine<>sit Independent. Goal Start Date Expected End Date End Date PT [facility] - [facility] 2 10/21/23 11/04/23 -- Goal Details: Patient will perform bed<>chair transfer Modified Independent with ww. Goal Start Date Expected End Date End Date PT LT - [facility] 3 10/21/23 11/04/23 -- Goal Details: Patient will ambulate 350 feet Modified Independent with wheeled walker. Goal Start Date Expected End Date End Date PT [facility] - [facility] 4 10/21/23 11/04/23 -- Goal Details: Patient [...] on peritoneal dialysis initially presented to [facility] in [facility] on October 09 for symptoms [...] free T4, synthroid started Fernandez Carranza MD [facility]: MD Chula Domínguez, MD Renny Flood, MD STANISLAV Camacho, MD Shanda Pederson, ROBERTO [address] [place], [place] [address] [phone] - Office [phone] - Fax * Pradeep Reeves NP - [...] Dose Route Frequency al & mag hydroxide hlacvitniyh-vrrrbtqxvlusagr-wznyyxvrt-nystatin (MAGIC MOUTHWASH) oral suspension 1-1-1-1 20 mL [...] flush 0.5-20 mL 0.5-20 mL intra-catheter Q8H [facility] sodium chloride tablet 1 g 1 g [...] sternotomy healing well ASSESSMENT/PLAN: CAD - prior [place] with multiple PCI - [facility] showed multivessel disease - LVEF dropped [...] -venous doppler shows no DVT SHAMIKA Donald [facility] 11/02/2023 12:53 PM * [...] and Vancomycin for left lower extremity cellulitis Thompson prn for pain control CPAP nightly Stress [...] on peritoneal dialysis initially presented to [facility] in [facility] on October 09 for symptoms [...] a cardiology consultation which lead to a [facility]. Results were notable for severe CAD [...] free T4, synthroid started Fernandez Carranza MD [facility]: MD Chula Domínguez, MD Renny Flood PA Derek Larson, MD FASN Rose Mattli, MD Shanda Pederson, ROBERTO [address] [place] [address] [phone] - Office [phone] - Fax * Sophia Peoples COTA - [...] permanent denture broke after biting into an kinyarwanda muffin. Incisional pain is well controlled. OBJECTIVE: [...] Dose Route Frequency al & mag hydroxide noonrhbojmq-lzugrlaiwwspycv-gcauicffq-nystatin (MAGIC MOUTHWASH) oral suspension 1-1-1-1 20 mL [...] flush 0.5-20 mL 0.5-20 mL intra-catheter Q8H [facility] sodium chloride tablet 1 g 1 g [...] sternotomy healing well ASSESSMENT/PLAN: CAD - prior [place] with multiple PCI - [facility] showed multivessel disease - LVEF dropped [...] -venous doppler shows no DVT SHAMIKA Donald [facility] 11/01/2023 10:22 AM Agree with above note Feels better No chest pain BP stable S/P CABG, AVR ONX Om heparin and warfarin In sinus rhythm On antibiotics for cellulitis Patrick Almonte MD, FACC * Nusrat Us, [facility] - 11/01/2023 9:40 AM CDT Warfarin monitoring [...] add Vancomycin for left lower extremity cellulitis Thompson prn for pain control CPAP nightly Encouraged [...] on peritoneal dialysis initially presented to [facility] in [facility] on October 09 for symptoms [...] free T4, synthroid started Fernandez Carranza MD [facility]: MD Chula Domínguez, MD Renny Flood PA Derek Larson, MD FASN Rose Mattli, MD Shanda Pederson, ROBERTO [address] [place], [place] [address] [phone] - Office [phone] - Fax * Nida Starr, GLASSWARE SELECTOR - 10/31/2023 10:20 AM CDT Physical Therapy [...] Date Expected End Date End Date PT [facility] 1 10/21/23 11/04/23 -- Goal Details: Patient will perform supine<>sit Independent. Goal Start Date Expected End Date End Date PT [facility] 2 10/21/23 11/04/23 -- Goal Details: Patient will perform bed<>chair transfer Modified Independent with ww. Goal Start Date Expected End Date End Date PT [facility] 3 10/21/23 11/04/23 -- Goal Details: Patient will ambulate 350 feet Modified Independent with wheeled walker. Goal Start Date Expected End Date End Date PT [facility] 4 10/21/23 11/04/23 -- Goal [...] mg. Continueto monitor INR. * Emiliana Dickson, CLOTH PAINTER - 10/31/2023 8:40 AM CDT Daily Progress [...] Dose Route Frequency al & mag hydroxide wfjlzffihjh-hnjcwxzcrylzkcx-ebfccpqun-nystatin (MAGIC MOUTHWASH) oral suspension 1-1-1-1 20 mL [...] sternotomy healing well ASSESSMENT/PLAN: CAD - prior [place] with multiple PCI - [facility] showed multivessel disease - LVEF dropped [...] doppler shows no DVT Emiliana Dickson NP [facility] 10/31/2023 8:40 AM * Tim Richard RP - 10/31/2023 7:49 AM CDT Pharmacokinetic Consult - Vancomycin Dosing (Day 1) Juvenal Garvni Jr. is a 53 y.o. male who [...] 1 View - Portable - in AM [[id number]] Collected: 10/26/23 0740 Order Status: Completed Updated: [...] Continue Ancef for left lower extremity cellulitis Thompson prn for pain control CPAP nightly Encouraged incentive spirometer use and increased activity Stress ulcer prophylaxis: Protonix DVT prophylaxis: INR therapeutic PT/OT: Inpatient rehab denied by insurance, will explore alternative options Plan reviewed with LESLY Larose 10/30/2023 * Nida Starr, GLASSWARE SELECTOR - 10/30/2023 11:37 AM CDT Physical Therapy [...] End Date End Date PT LTG - [facility] 1 10/21/23 11/04/23 -- Goal Details: Patient will perform supine<>sit Independent. Goal Start Date Expected End Date End Date PT [facility] 2 10/21/23 11/04/23 -- Goal Details: Patient will perform bed<>chair transfer Modified Independent with ww. Goal Start Date Expected End Date End Date PT [facility] 3 10/21/23 11/04/23 -- Goal Details: Patient will ambulate 350 feet Modified Independent with wheeled walker. Goal Start Date Expected End Date End Date PT [facility] 4 10/21/23 11/04/23 -- Goal [...] on peritoneal dialysis initially presented to [facility] in [facility] on October 09 for symptoms [...] free T4, synthroid started Fernandez Carranza MD [facility]: MD Chula Domínguez PA Graeme Mindel, MD Justin Krafft, PA Derek Larson, MD FASN Rose Mattli, NP Rohan Devanpalli, MD Candace Shirley, NP [address] [place] [address] [phone] - Office [phone] - Fax * Joselin Strickland MD - [...] Dose Route Frequency al & mag hydroxide xqkpxjhhdms-lpgvparpduswsvx-bxaxjxgcl-nystatin (MAGIC MOUTHWASH) oral suspension 1-1-1-1 20 mL [...] sternotomy healing well ASSESSMENT/PLAN: CAD - prior [place] with multiple PCI - [facility] showed multivessel [...] cellulitis. -venous doppler pending Emiliana Dickson NP [facility] 10/30/2023 8:17 AM * Nida Starr, GLASSWARE SELECTOR - 10/30/2023 7:44 AM CDT Physical Therapy [...] on peritoneal dialysis initially presented to [facility] in [facility] on October 09 for symptoms [...] a cardiology consultation which lead to a [facility]. Results were notable for severe CAD [...] D/W nursing and Dr. Thao Walker MD [facility]: MD Chula Domínguez PA Graeme Mindel, MD Justin Krafft, MD STANISLAV Camacho, MD Shanda Pederson, CLOTH PAINTER [address] [place], [place] [address] [phone] - Office [phone] - Fax * Manda Schaffer NP - [...] Dose Route Frequency al & mag hydroxide ebuciizkhsn-jmxyrskosqhvrnh-zecztarix-nystatin (MAGIC MOUTHWASH) oral suspension 1-1-1-1 20 mL [...] sternotomy healing well ASSESSMENT/PLAN: CAD - prior [place] with multiple PCI - [facility] showed multivessel disease - LVEF dropped [...] LLE -venous doppler pending Manda Schaffer NP [facility] 10/29/2023 9:35 AM Cosigned by Ramirez Newebrry MD at 10/29/2023 1:46 PM CDT * [...] discharge Plan reviewed with LESLY Mack 10/28/2023 SPECIALIST * Sophia Peoples COTA - 10/28/2023 2:17 [...] Hills OT at 10/30/2023 1:30 PM CDT SPECIALIST * Adam Walker MD - 10/28/2023 1:22 PM CST Images from the original note were not included. Nephrology Juvenal Garvin Jr. - 1970 Primary : Aditya Correa MD History and interval events: 53-year-old gentleman with history of type 1 diabetes mellitus on insulin pump, CHF, CAD, ESRD on peritoneal dialysis initially presented to [facility] in [facility] on October 09 for symptoms [...] a cardiology consultation which lead to a [facility]. Results were notable for severe CAD [...] T4, consider thyroid supplementation? Adam Walker MD [facility]: MD Chula Domínguez, MD Renny Flood PA Derek Larson, MD FASN Rose Mattli, MD Shanda Pederson, ROBERTO [address] [place] [id number] [phone] - Office [phone] - Fax SPECIALIST * Manda Schaffer NP - 10/28/2023 8:01 [...] Dose Route Frequency al & mag hydroxide egnnqsxwxbn-cxojoslnespouri-uypqqlwgw-nystatin (MAGIC MOUTHWASH) oral suspension 1-1-1-1 20 mL [...] flush 0.5-20 mL 0.5-20 mL intra-catheter Q8H [facility] sodium chloride tablet 1 g 1 g [...] sternotomy healing well ASSESSMENT/PLAN: CAD - prior [place] with multiple PCI - C showed multivessel [...] management per primary/nephrology team Manda Schaffer NP [facility] 10/28/2023 8:02 AM Cosigned by Ramirez Newberry MD at 10/28/2023 1:08 PM TREE SPECIALIST SPECIALIST SPECIALIST * Yolanda Campos PA - 10/27/2023 6:58 [...] discharge Plan reviewed with LESLY Pantoja 10/27/2023 SPECIALIST * Taylor Jorge, RD - 10/27/2023 2:33 PM CST Nutrition Follow-up Progress Note Encounter Date: 10/27/23 2:33 PM Nutrition Progress Summary: Patient is a 53 y.o. male. Admit Dx: CAD in eek artery [I25.10]. Admitted on 10/13/2023. Patient's intake is adequate. Objective Dietary Orders (From admission, onward) Start Ordered 10/26/23 1235 Adult Diet Restricted; Consistent Carbohydrate; Renal; 1000mL = Diet 700/Nursing 300 Diet effective now Question Answer Comment ([facility]) Diet type Restricted Diabetic: Consistent [...] Review: Scheduled Meds: al & mag hydroxide uwwpbrjwnuy-owbmwdkpxcgufne-lowwgzvrr-nystatin, 20 mL, swish & swallow, Q6H amiodarone, [...] of Weight Used for Estimated Protein : [place] Protein Needs Based on g/k.4 Total Protein Estimated Needs (gm): 105.42 Kcal/kg Type of Weight Used for Estimated Kcals: [place] Kcal/k Total Kcal/kg Estimated Needs : 2259 [...] High protein intake. Taylor Jorge RD, LD SPECIALIST * Sophia Peoples COTA - 10/27/2023 1:25 [...] Suzie Aiken OT at 10/27/2023 2:23 PM TREE SPECIALIST SPECIALIST SPECIALIST * Joselin Strickland MD - 10/27/2023 12:02 [...] oral Q6H PRN al & mag hydroxide ucorgpaykmq-svdevibomsykxnw-jtuggtwsy-nystatin (MAGIC MOUTHWASH) oral suspension 1-1-1-1 20 mL [...] Rate: 100 bpm RR Interval: 599 msec ND Interval: 0 msec QRS Duration: 145 msec QT Interval: 394 msec QTC Interval: 451 msec P-R-T [place]: 0 - -9 - 132 degrees IMPRESSION: NORMAL SINUS RHYTHM [REASON: NORMAL P AXIS, ND, RATE \T\ RHYTHM] LEFT BUNDLE BRANCH BLOCK OCCASIONAL PVC Electronically Signed By: Jesus Huerta MD ASSESSMENT/PLAN: CAD - prior [place] with multiple PCI - [facility] showed multivessel disease - LVEF dropped [...] management per primary/nephrology team Joselin Strickland MD, [facility] [phone] [facility] 10/27/2023 12:02 PM SPECIALIST * Fernandez Carranza MD - 10/27/2023 9:44 AM CST Images from the original note were not included. Nephrology Juvenal Garvin Jr. - 1970 Primary : Aditya Correa MD History and interval events: 53-year-old gentleman with history of type 1 diabetes mellitus on insulin pump, CHF, CAD, ESRD on peritoneal dialysis initially presented to [facility] in [facility] on October 09 for symptoms [...] a cardiology consultation which lead to a [facility]. Results were notable for severe CAD [...] will see this weekend Fernandez Carranza MD [facility]: MD Chula Domínguez, MD Renny Flood PA Derek Larson, MD FASN Rose Mattli, NP Rohan Devanpalli, MD Candace Shirley, NP [address] [place], [place] [address] [phone] - Office [phone] - Fax SPECIALIST SPECIALIST * Guerline Rodriguez PA - 10/26/2023 4:12 [...] 1 View - Portable - in AM [[id number]] Collected: 10/26/2340 Order Status: Completed Updated: 10/26/23742 [...] discharge Plan reviewed with LESLY Larose 10/26/2023 SPECIALIST * Pradeep Reeves NP - 10/26/2023 2:16 [...] oral Q6H ASHLEY al & mag hydroxide ktenksbsrqm-wzqonzttbvbgmnb-dmutajtnz-nystatin (MAGIC MOUTHWASH) oral suspension 1-1-1-1 20 mL [...] infusion (premix) 0-33 Units/kg/hr 12.7 Units/kg/hr (10/25/23 1942) INSULIN SUBCUTANEOUS PUMP insulin lispro (HumaLOG) 100 [...] No focal deficits ASSESSMENT/PLAN: CAD - prior [place] with multiple PCI - [facility] showed multivessel [...] - management per primary/nephrology team SHAMIKA Donald [facility] 10/26/2023 2:17 PM SPECIALIST * Fernandez Carranza MD - 10/26/2023 12:29 PM CST Images from the original note were not included. Nephrology Juvenal Garvin Jr. - 1970 Primary : Aditya Correa MD History and interval events: 53-year-old gentleman with history of type 1 diabetes mellitus on insulin pump, CHF, CAD, ESRD on peritoneal dialysis initially presented to [facility] in [facility] on October 09 for symptoms [...] PO4 binder with meals Fernandez Carranza MD [facility]: MD Chula Domínguez PA Graeme Mindel, MD Justin Krafft, PA Derek Larson, MD FASN Rose Mattli, NP Rohan Devanpalli, MD Candace Shirley, NP [address] [place], [place] [id number] [phone] - Office [phone] - Fax SPECIALIST * Nusrat Us [facility] - 10/26/2023 11:17 AM CST Warfarin monitoring [...] previous supratherapeutic response to 3 mg doses. SPECIALIST * Gustavo Swan, PT - 10/26/2023 10:10 [...] of ESRD on PD, CAD s/p PCI, [place], and DVTon chronic anticoagulation, Type 1 DM, HTN who presented to [facility] initially on 10/09/23 with general malaise and found to be in DKA and admitted to ICU. During hospitalization found to have elevated Troponins prompted cardiology evaluation and C significant for multivessel CAD and subse quently also found aortic stenosis. Transferred to [facility] 10/14/23 for surgical evaluation. Patient isnow s/p CABG x 3 (SVG-PDA, SVG-OM, BRICE-LAD) and mechanical AVR ([address] [place]) by Dr. Valero on 10/17/23. Family/Caregiver Present [...] Date Expected End Date End Date PT [facility] - [facility] 1 10/21/23 11/04/23 -- Goal Details: Patient will perform supine<>sit Independent. Goal Start Date Expected End Date End Date PT [facility] - [facility] 2 10/21/23 11/04/23 -- Goal Details: Patient will perform bed<>chair transfer Modified Independent with ww. Goal Start Date Expected End Date End Date PT [facility] 3 10/21/23 11/04/23 -- Goal Details: Patient will ambulate 350 feet Modified Independent with wheeled walker. Goal Start Date Expected End Date End Date PT [facility] 4 10/21/23 11/04/23 -- Goal Details: Patient will ambulate up/down 1 step Modified Independent as needed to enter and exithome. Education: Patient has been educated on the role of PT, safety , precautions, mobility training, and home exercise program. Education completed via explanation, teach back, and demonstration. Patientverbalized understanding and demonstrated understanding SPECIALIST * Nida Starr, GLASSWARE SELECTOR - 10/25/2023 3:01 PM CST Physical Therapy 10/25/23 1501 PT Last Visit Session Type Treatment PT Received On 10/25/23 Safe Environment Arm band checked;Patient found in supine;Session completed bedside;Gait belt utilized for all out of bed mobility Subjective Agreeable to Therapy Additional Pertinent History per eval: 53 y/o M presents for surgical intervention on 10/14/23 from [facility]. Pt is s/p CABG x 3 (SVG-PDA, SVG-OM, BRICE-LAD) and mechanical AVR on 10/[address] Valero. Pt has history of ESRD on PD, CAD s/p PCI, [place], and DVT on chronic anticoagulation, Type 1 [...] Date Expected End Date End Date PT [facility] - [facility] 1 10/21/23 11/04/23 -- Goal Details: Patient will perform supine<>sit Independent. Goal Start Date Expected End Date End Date PT [facility] - [facility] 2 10/21/23 11/04/23 -- Goal Details: Patient will perform bed<>chair transfer Modified Independent with ww. Goal Start Date Expected End Date End Date PT [facility] 3 10/21/23 11/04/23 -- Goal Details: Patient will ambulate 350 feet Modified Independent with wheeled walker. Goal Start Date Expected End Date End Date PT [facility] 4 10/21/23 11/04/23 -- Goal Details: Patient will ambulate up/down 1 step Modified Independent as needed to enter and exithome. Cosigned by Gustavo Swan, PT at 10/25/2023 4:45 PM TREE SPECIALIST SPECIALIST SPECIALIST * Guerline Rodriguez PA - 10/25/2023 2:13 [...] 1 View - Portable - in AM [[id number]] Collected: 10/25/23 1143 Order Status: Completed Updated: [...] discharge Plan reviewed with LESLY Larose 10/25/2023 SPECIALIST * Nusrat Us RPh - 10/25/2023 10:39 [...] with another 1.5 mg dose and reassess. SPECIALIST * Sophia Peoples COTA - 10/25/2023 9:43 [...] Vitals post activity BP 129/70, HR 63, [id number] Safe Environment End of Therapy Session Safe [...] Patient needs ongoing reinforcement Cosigned by Suzie iAken OT at 10/25/2023 11:49 AM TREE SPECIALIST SPECIALIST SPECIALIST * Emiliana Dickson NP - 10/25/2023 9:27 [...] No focal deficits ASSESSMENT/PLAN: CAD - prior [place] with multiple PCI - LHC showed multivessel [...] management per primary/nephrology team Emiliana Dickson NP [facility] 10/25/2023 9:28 AM Cosigned by Dilip Cohen MD at 10/25/2023 9:55 AM TREE SPECIALIST SPECIALIST SPECIALIST Associated attestation - Dilip Cohen MD - 10/25/2023 9:55 AM TREE SPECIALIST Patient seen at the bedside Is continuing [...] for surgical intervention on 10/14/23 from [facility]. Pt is s/p CABG x 3 (SVG-PDA, SVG-OM, BRICE-LAD) and mechanical AVR on 10/[address] Valero. Pt has history of ESRD on PD, CAD s/p PCI, [place], and DVT on chronic anticoagulation, Type 1 [...] (from Physical Therapy) Active Problems Problem: PT [facility] Start Date: 10/21/23 Goal Start Date Expected End Date End Date PT [facility] - [facility] 1 10/21/23 11/04/23 -- Goal Details: Patient will perform supine<>sit Independent. Goal Start Date Expected End Date End Date PT [facility] - [facility] 2 10/21/23 11/04/23 -- Goal Details: Patient will perform bed<>chair transfer Modified Independent with ww. Goal Start Date Expected End Date End Date PT [facility] 3 10/21/23 11/04/23 -- Goal Details: Patient will ambulate 350 feet Modified Independent with wheeled walker. Goal Start Date Expected End Date End Date PT [facility] - [facility] 4 10/21/23 11/04/23 -- Goal Details: Patient will ambulate up/down 1 step Modified Independent as needed to enter and exithome. Cosigned by Gina Mason DPT at 10/24/2023 3:12 PM TREE SPECIALIST SPECIALIST SPECIALIST * Fernandez Carranza MD - 10/24/2023 10:56 AM CST Images from the original note were not included. Nephrology Juvenal Garvin Jr. - 1970 Primary : Aditya Correa MD History and interval events: 53-year-old gentleman with history of type 1 diabetes mellitus on insulin pump, CHF, CAD, ESRD on peritoneal dialysis initially presented to [facility] in [facility] on October 09 for symptoms [...] PO4 binder with meals Fernandez Carranza MD [facility]: Ron R. Newhall, MD Chula Heady, PA Fernandez MD Renny Carranza PA Derek Larson, MD FASN Rose Mattli, NP Rohan Devanpalli, MD Candace Shirley, ROBERTO [address] [place], [place] [address] [phone] - Office [phone] - Fax SPECIALIST * Nona Alcala PA - 10/24/2023 10:15 [...] discharge Patient discussed with LESLY Vallecillo 10/24/2023 SPECIALIST * Nusrat Us RPh - 10/24/2023 9:49 [...] setting (nutrition). Warfarin dose today: 1.5 mg SPECIALIST * Salena Rene NP - 10/24/2023 9:26 AM CST Cardiology Daily Progress - [facility] SUBJECTIVE: Mr. Garvin is resting in [...] No focal deficits ASSESSMENT/PLAN: CAD - prior [place] with multiple PCI - C showed multivessel [...] water restriction with hyponatremia Salena Rene NP [facility] 10/24/2023 9:26 AM SPECIALIST * Wyatt Rodriguez EP-C - 10/24/2023 8:08 AM CST Inpatient Cardiac Rehab Education Patient Information Patient Name: Juvenal Garvin Jr. : 1970 Room/Bed: [place] [address]/[address] Insurance: [employer] + IDPA Progress Note Radio Communication Coordinator: ROSA Silva Date: 10/24/2023 Referring Diagnosis for Cardiac Rehab - s/p CABG x 3, AVR Education Provided Explained my role as a Cardiac Rehab Navigator (CRN). Provided Cardiac Rehab education to patient. Family was (not) present. Patient was provided with Cardiac Rehab education folder as well as a [facility] Heart Education booklet. Risk Factors: HTN, [...] fats)and exercise. Advised patient to consult their ammonium nitrate neutralizer, nurse, and/or physician if they have any questions about their diet/nutrition. Cardiac Rehab: Gave patient options of facilities for Outpatient Cardiac Rehab (OCR) in their community. Explained OCR program. Patient expressed knowledge towards local OCR program - patient prefers [facility] I anticipate no barriers for patient to [...] working towards eventually trying to reach the [employer] recommendations in regards to exercise: [...] when it would be appropriate to call Title Vehicle Service Attendant's office, go to the ER, or call 911. Insurance Coverage: Briefly explained general insurance coverage for OCR, but assured patient that OCR facility will usually call insurance and inform patient of more of an approximate coverage. Post-Discharge: Explained process between discharge from hospital, and getting set up in an OCR program - follow upwith Title Vehicle Service Attendant, CRN follow up calls, OCR program contact. Conclusion Patient seems likely to participate in OCR. Reassured patient of importance and health care provider support of OCR. Patient verbalized understanding of education, and all questions were answered to the best of my ability. Will complete order for OCR to be sent to Title Vehicle Service Attendant. Thank you for allowing us to assistant professor of business in the care of this patient, please don't hesitate to contact the Cardiac Rehab Navigator office with any questions: [phone]. SPECIALIST * Fernandez Carranza MD - 10/23/2023 5:30 PM CST Images from the original note were not included. Nephrology Juvenal Garvin Jr. - 1970 Primary : Aditya Correa MD History and interval events: 53-year-old gentleman with history of type 1 diabetes mellitus on insulin pump, CHF, CAD, ESRD on peritoneal dialysis initially presented to [facility] in [facility] on October 09 for symptoms [...] a cardiology consultation which lead to a [facility]. Results were notable for severe CAD [...] PO4 binder with meals Fernandez Carranza MD [facility]: MD Chula Domínguez, MD Renny Flood PA Derek Larson, MD FASN Rose Mattli, MD Shanda Pederson, ROBERTO [address] [place], [place] [address] [phone] - Office [phone] - Fax SPECIALIST * Nona Alcala PA - 10/23/2023 3:04 [...] discharge Patient discussed with LESLY Vallecillo 10/23/2023 SPECIALIST * Gustavo Swan, PT - 10/23/2023 10:42 [...] for surgical intervention on 10/14/23 from [facility]. Pt is s/p CABG x 3 (SVG-PDA, SVG-OM, BRICE-LAD) and mechanical AVR on 10/[address] Valero. Pt has history of ESRD on PD, CAD s/p PCI, [place], and DVT on chronic anticoagulation, Type 1 [...] (from Physical Therapy) Active Problems Problem: PT [facility] Start Date: 10/21/23 Goal Start Date Expected End Date End Date PT [facility] - [facility] 1 10/21/23 11/04/23 -- Goal Details: Patient will perform supine<>sit Independent. Goal Start Date Expected End Date End Date PT [facility] - [facility] 2 10/21/23 11/04/23 -- Goal Details: Patient will perform bed<>chair transfer Modified Independent with ww. Goal Start Date Expected End Date End Date PT [facility] 3 10/21/23 11/04/23 -- Goal Details: Patient will ambulate 350 feet Modified Independent with wheeled walker. Goal Start Date Expected End Date End Date PT [facility] 4 10/21/23 11/04/23 -- Goal Details: Patient will ambulate up/down 1 step Modified Independent as needed to enter and exithome. Education: Patient has been educated on the role of PT, safety , precautions, mobility training, stairs, and home exercise program. Education completed via explanation, teach back, and demonstration.Patient verbalized understanding, demonstrated understanding, and needs ongoing reinforcement SPECIALIST * Nusrat Us RPh - 10/23/2023 9:40 [...] the previous starting dose of 3 mg. SPECIALIST * Nida Starr PTA - 10/23/2023 8:10 AM CST Physical Therapy 10/23/23 0810 PT Last Visit Session Type Treatment PT Received On 10/23/23 PT Missed Visit Reason Procedure/testing/appointment (Pt is currently on PD - nursing will notify when pt is finished.) SPECIALIST * Saulo Kimball COTA - 10/23/2023 7:10 [...] Suzie Aiken OT at 10/23/2023 9:51 AM TREE SPECIALIST SPECIALIST SPECIALIST * Bartolo Solorio MD - 10/23/2023 6:38 AM CST Cardiology Inpatient Progress Note [facility] SUBJECTIVE: Pt had no [...] cyanosis or clubbing. ASSESSMENT/PLAN: CAD - prior [place] with multiple PCI - LHC showed multivessel [...] wafarin with mechanical valve Bartolo Solorio MD, [facility], [facility] 10/23/2023 6:38 AM SPECIALIST * Ron Martinez MD - 10/22/2023 8:57 PM CST Images from the original note were not included. Nephrology Juvenal Garvin Jr. - 1970 Primary : Aditya Correa MD History and interval events: 53-year-old gentleman with history of type 1 diabetes mellitus on insulin pump, CHF, CAD, ESRD on peritoneal dialysis initially presented to [facility] in [facility] on October 09 for symptoms [...] regimen Start CORRINE weekly Ron Martinez MD [facility]: MD Chula Domínguez PA Graeme Mindel, MD Justin Krafft, PA Derek Larson, MD FASN Rose Mattli, NP Rohan Devanpalli, MD Candace Shirley, ROBERTO [address] [place] [id number] [phone] - Office [phone] - Fax SPECIALIST * Yolanda Campos PA - 10/22/2023 5:09 [...] renal recommendations DVT prophylaxis Patient discussed with LESYL Danielle 10/22/2023 SPECIALIST * Makayla Diallo [facility] - 10/22/2023 9:06 AM CST Warfarin monitoring [...] following significant increase yesterday Makayla Diallo, PharmD Quality Assurance Engineer 10/22/23 9:06 AM SPECIALIST * Bartolo Solorio MD - 10/22/2023 6:43 AM CST Cardiology Inpatient Progress Note [facility] SUBJECTIVE: Pt had no [...] cyanosis or clubbing. ASSESSMENT/PLAN: CAD - prior [place] with multiple PCI - [facility] showed multivessel disease - LVEF dropped [...] wafarin with mechanical valve Bartolo Solorio MD, [facility] 10/22/2023 6:43 AM SPECIALIST * Yolanda Campos PA - 10/21/2023 4:19 [...] prophylaxis Patient discussed with LESLY Danielle 10/21/2023 SPECIALIST SPECIALIST * Gina Mason DPT - 10/21/2023 9:05 AM CST Physical Therapy 10/21/23 0905 General Chart Reviewed Yes Session Type Evaluation PT Received On 10/21/23 Safe Environment Arm band checked;Patient found in supine;Gait belt utilized for all out of bed mobility Subjective Agreeable to Therapy Additional Pertinent History 53 y/o M presents for surgical intervention on 10/14/23 from [facility]. Pt is s/p CABG x 3 (SVG-PDA, SVG-OM, BRICE-LAD) and mechanical AVR on 10/[address] Valero. 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 SPECIALIST * Ron Martinez MD - 10/21/2023 8:48 AM CST Images from the original note were not included. Nephrology Juvenal Garvin Jr. - 1970 Primary : Aditya Corera MD History and interval events: 53-year-old gentleman with history of type 1 diabetes mellitus on insulin pump, CHF, CAD, ESRD on peritoneal dialysis initially presented to [facility] in [facility] on October 09 for symptoms [...] regimen Start CORRINE weekly Ron Martinez MD [facility]: MD Chula Domínguez PA Graeme Mindel, MD Justin Krafft, PA Derek Larson, MD FASN Rose Mattli, NP Rohan Devanpalli, MD Candace Shirley, NP [address] [place], [place] [address] [phone] - Office [phone] - Fax SPECIALIST * Bartolo Solorio MD - 10/21/2023 8:08 AM CST Cardiology Inpatient Progress Note [facility] SUBJECTIVE: Pt had no [...] cyanosis or clubbing. ASSESSMENT/PLAN: CAD - prior [place] with multiple PCI - LHC showed multivessel [...] wafarin with mechanical valve Bartolo Solorio MD, [facility], [facility] 10/21/2023 8:08 AM SPECIALIST * Dominique Fuentes, STOCKFEED MILLER - 10/21/2023 12:29 AM CST 10/20/232246 NPPV Information NPPV Mode CPAP NPPV Status Refused NPPV Type V-60 NPPV ID L [id number] Therapist Assist Charges RT Therapist Assist NPPV 1 Encouraged patient to have his CPAP unit brought in since intolerable of ours. SPECIALIST * Carly Spencer, RD - 10/20/2023 3:27 PM CST Nutrition Follow-up Progress Note Encounter Date: 10/20/23 3:30 PM Nutrition Progress Summary: Patient is a 53 y.o. male. Admit Dx: CAD in eek artery [I25.10]. Admitted on 10/13/2023. Pt s/p CABG/AVR 10/17/23. PMH includes Type I DM, ESRD on PD. Pt reports he is tolerating his meals and drinking the Nepro supplement. Increased protein intake encouraged. Pt new on Coumadin. Educated pt on Coumadin/diet interaction. Pt is familiar with his diabetic renal diet and plans to improve his adherence to diet. Mirror Fabrication Supervisor consult noted. Pt with good understanding of [...] Renal Diet effective now Question Answer Comment ([facility]) Diet type Restricted Diabetic: Consistent [...] of Weight Used for Estimated Protein : [place] Protein Needs Based on g/k.4 Total Protein Estimated Needs (gm): 105.42 Kcal/kg Type of Weight Used for Estimated Kcals: [place] Kcal/k Total Kcal/kg Estimated Needs : 2259 [...] High protein intake. 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 [facility] CVR Daily Progress Note- Patient: Juvenal Garvin Jr. : 1970 Age: 53 y.o. male Admitting Physician: Jaqueline Valero MD Ripening Room Operator: Kirsten Burns MD Shift: [facility] CVR AM Interval History: NEON Admitted to the hospital on 10/13/2023 11:18 PM for CAD in eek artery [I25.10] Hospital Course: (10/17/23) s/p CABG [...] - 10/20/2359 10/20/23699 - 10/21/23 0659 Shift [id number] 24 Hour Total 1899-0659 24 Hour Total [...] s/p mechanical AVR Post CPB LEIA on RIVET FLUNKY 5 with LVEF 40-50%, normal RV. (Told during report) no note in place. Arrived on R[place]UN[place] 5, NE 0.05 with low filling pressures and AAI 90. Post op bleeding requiring multiple transfusions. Bleeding from CT slowed overnight but oozing at lines and drain sites. - EPW VVI bu - Consider DC'ing CT - ASA daily - DC Heparin drip - Continue Warfarin per pharmacy - INR goal 2-3 - [facility] anticoagulation plan Warfarin and Plavix for NSTEMI - statin daily - Torsemide 100mg daily start today - DC Arterial line Paroxysmal atrial fibrillation Sinus bradycardia History of pAF. On Eliquis at home. Was on Heparin drip pre op. Arrived from OR AAI at 90 with reported bradycardia in PCU while on BB SB 50-60s. RIVET FLUNKY weaned off overnight and EPW to VVI [...] off Insulin drip prior to transfer to [facility]. Insulin pump not working when [...] by: Byron Olvera NP CRITICAL CARE: Team: [facility] CT Shift: AM Level of [...] plan with the patient's team and other medical/oracle distribution consultant staff. This time was in addition to and separate from care provided by other practitioners on this day of service. Cosigned by Kirsten Burns MD at 10/29/2023 10:56 PM CDT SPECIALIST * Nusrat Us RPh - 10/20/2023 12:06 [...] increase as much as it did today. SPECIALIST * Bartolo Solorio MD - 10/20/2023 9:18 AM CST Cardiology Daily Progress - [facility] SUBJECTIVE: Mr. Garvin is resting comfortably [...] tablet 1,000 mg 1,000 mg oral Q6H [facility] aspirin chewable tablet 81 mg 81 [...] 0.9% (premix) solution 1,000 mg 1,000 mg [id number] PRN 1,000 mg at 10/18/23 0032 Carrier [...] No focal deficits ASSESSMENT/PLAN: CAD - prior [place] with multiple PCI - C showed multivessel [...] fibrillation (HR in 60s) Salena Rene NP [facility] 10/20/2023 9:18 AM Pt evaluated with CLOTH PAINTER. He is doing well clinically with planned transfer from the ICU today. Afib rates are well-controlled (currently in the 60s) with plan detailed above. SPECIALIST SPECIALIST * Chula Valera PA - 10/20/2023 6:43 AM CST Images from the original note were not included. Nephrology Juvenal Garvin Jr. - 1970 Primary : Aditya Correa MD History and interval events: 53-year-old gentleman with history of type 1 diabetes mellitus on insulin pump, CHF, CAD, ESRD on peritoneal dialysis initially presented to [facility] in [facility] on October 09 for symptoms [...] Continue active and nutritional vitamin-D LESLY Ortiz [facility]: MD Chula Domínguez PA Graeme Mindel, MD Justin Krafft, MD STANISLAV Camacho NP Rohan Devanpalli, MD Candace Shirley, ROBERTO [address] [place], [place] [address] [phone] - Office [phone] - Fax SPECIALIST SPECIALIST * Eliana Márquez, PT - 10/19/2023 2:25 PM CST Physical Therapy Cancellation 10/19/23 1425 PT Last Visit Session Type Other (comment) PT Received On 10/19/23 Subjective Other Subjective Comment Per RN, Pt. is too fatigued to participate in therapy, will attempt evaluation 10/19. PT Missed Visit Reason MD/RN Hold;Asleep SPECIALIST * Chula Valera PA - 10/19/2023 12:42 PM CST Images from the original note were not included. Nephrology Juvenal Garvin . - 1970 Primary : Aditya Correa MD History and interval events: 53-year-old gentleman with history of type 1 diabetes mellitus on insulin pump, CHF, CAD, ESRD on peritoneal dialysis initially presented to [facility] in [facility] on October 09 for symptoms [...] a cardiology consultation which lead to a [facility]. Results were notable for severe CAD [...] vitamin-D Resume [place] with meals LESLY Ortiz [facility]: MD Chula Domínguez PA Graeme Mindel, MD Justin Krafft, PA Derek Larson, MD FASN Rose Mattli, NP Rohan Devanpalli, MD Candace Shirley, NP [address] [place], [place] [address] [phone] - Office [phone] - Fax SPECIALIST SPECIALIST * Reyes Odom - 10/19/2023 11:49 AM CST Occupational Therapy Evaluation 10/19/23 1035 General Chart Reviewed Yes Session Type Evaluation OT Received On 10/19/23 Safe Environment Arm band checked;Patient found in supine Subjective Agreeable to Therapy Subjective Comment I'm so cold and tired. Additional Pertinent History 53 y/o M presents for surgical intervention on 10/14/23 from [facility]. Pt is s/p CABG x 3 (SVG-PDA, SVG-OM, BRICE-LAD) and mechanical AVR on 10/[address] Valero. Pt has history of ESRD on PD, CAD s/p PCI, KY, and DVT on chronic anticoagulation, Type 1 [...] mobility at baseline. 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 Grooming Grooming: Where assessed Chair Grooming: Level of assistance Minimum Assist (Pt exhibiting functionally weak web specialist strength and fine motor skills with BUEs. [...] Suzie Aiken OT at 10/19/2023 11:50 AM TREE SPECIALIST SPECIALIST SPECIALIST * Felipe Robledo DO - 10/19/2023 8:09 [...] to chair today progressing Felipe Robledo DO, [facility] 10/19/2023 8:09 AM SPECIALIST * Dawna Castellanos NP - 10/19/2023 6:57 AM CSTAssociated Order(s): Critical Care Post-Procedure Diagnose(s): CAD in eek artery Images from the original note were not included. [facility] CVR Daily Progress Note- Patient: Juvenal Garvin Jr. : 1970 Age: 53 y.o. male Admitting Physician: Jaqueline Valreo MD Ripening Room Operator: Kirsten Burns MD Shift: [facility] CVR AM Interval History: RIVET FLUNKY wean q6h for Scv02 >65-> off d/t HTN Changed to VVI 50, HR 60 Nasal cpap Dc dilaudid, dec oxy to 2.5 Admitted to the hospital on 10/13/2023 11:18 PM for CAD in eek artery [I25.10] Hospital Course: (10/17/23) s/p CABG x 3 (SVG-PDA, SVG-OM, BRICE-LAD) and mechanical AVR (25 [place]) by Dr. Valero Temp: [36.3 ??C (97.4 [...] 10/18/23699 - 10/19/2365810/19/23699 - 10/20/23 0659 Shift 9966-2707 0248-9134 24 Hour Total 2257-2142 1107-5050 24 Hour Total INTAKE P.O. 100 100 I.V.(mL/kg) 500(4) 500(4) Shift Total(mL/kg) 600(4.8) 600(4.8) OUTPUT Urine(mL/kg/hr) 155(0.1) 135(0.1) 290(0.1) 20 20 Drains 0 0 0 Other 1279 1279 1459 1459 Chest Tube 20 115 135 Shift Total(mL/kg) 1454(11.5) 250(2) 1704(13.5) 1479(11.7) 1479(11.7) NET -1454 350 1102 -1479 1478 Weight (kg) 126.2 126.2 126.2 126.2 126.2 [...] s/p mechanical AVR Post CPB LEIA on RIVET FLUNKY 5 with LVEF 40-50%, normal RV. (Told during report) no note in place. Arrived on RIVET FLUNKY 5, NE 0.05 with low filling pressures and AAI 90. Post op bleeding requiring multiple transfusions. Bleeding from CT slowed overnight but oozing at lines and drain sites. Overnight RIVET FLUNKY weaned off due to hypertension. EPW changed to VVI bu - Check Scvo2 and lactate now--->lactate 1.0, scvo2 70 - EPW VVI bu - CT to (-)20cm suction, can DC PCT today - ASA daily - Increase Heparin drip to full nomogram - Continue Warfarin per pharmacy - [facility] anticoagulation plan Warfarin and Plavix for NSTEMI - statin daily - Torsemide 100mg daily start today - DC Arterial line Paroxysmal atrial fibrillation Sinus bradycardia History of pAF. On Eliquis at home. Was on Heparin drip pre op. Arrived from OR AAI at 90 with reported bradycardia in PCU while on BB SB 50-60s. RIVET FLUNKY weaned off overnight and EPW to VVI [...] off Insulin drip prior to transfer to [facility]. Insulin pump not working when he presented to ER. Very labile blood sugars on basal/SSI regimen with glucose up to 300s. Likely difficulty with management due to PD. Remains on Insulin infusion, glucose labile while on PD. - Continue Insulin infusion per [place] protocol - do not turn off drip [...] glycol and bisacodyl suppository PRN. Glycemic control: [place] Protocol insulin gtt.. Lab Results Component Value [...] by: Dawna Castellanos NP CRITICAL CARE: Team: [facility] CT Shift: AM Level of [...] plan with the ICU team and other medical/oracle distribution consultant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 Lungs diminished throughout NPO, abdomen obese, soft, absent bowel sounds, OGT to LIWS R leg w/ SVG site CUSTOMER TECHNICAL SERVICES MANAGER, wound vac to sternum R rad AL, RIJ PAC/QLC Day time events Keep intubated and sedated tonight Ca+ DDAVP Keep RIVET FLUNKY 1 PRBC, 2 FFP Plan for PD [...] may have been dictated with voice-recognition software, facilities engineering manager so facilities engineering manager errors may be present. NOTICE: The above [...] by: Gamal Fox NP CRITICAL CARE: Team: [facility] Shift: PM Level of Billing: Critical Care [...] plan with the ICU team and other medical/oracle distribution consultant staff, making frequent assessments and decisions [...] Kirsten Burns MD at 10/18/2023 9:16 AM TREE SPECIALIST SPECIALIST SPECIALIST documented in this encounter Consult Notes * Loraine Medina RN - 10/23/2023 12:00 PM CST Juvenal Garvin Jr. [id number] Jaqueline Valero MD Pre-Education Assessment Units of [...] Name: Juvenal Garvin Jr. : 1970 Room/Bed: [place] [address]/[address] Patient has had diabetes for NUMEROUS [...] Value Date HGBA1C 8.1 (H) 10/16/2023 Pump Nurse Special: OMNIPOD Insulin Brand: NOVOLIN Does patient have supplies with them?: YES Bolus Wizard On?: YES INSULIN PUMP SETTINGS Total Daily Basal (TDB): 54 Basal Rates: 0000: 3.0 0800: 1.5 2000: 3.0 Insulin to Carb Ratio: 1:9 Sensitivity: 25 Target: 120 Active Insulin Time (AIT): 4 HOURS Thank you for this consult, Loraine Medina RN, Retail Security Professional 10/23/2023 12:44 PM SPECIALIST * Loraine Medina RN - 10/20/2023 10:45 AM CSTAssociated Order(s): IP CONSULT TO FINISHING MACHINE TENDER Juvenal Garvin Jr. [id number] [place] [id number] Jaqueline Valero MD Pre-Education Assessment Units of [...] concerns at this time. Loraine Medina, LUAN, Retail Security Professional 10/20/2023 11:27 AM SPECIALIST * Augustin Bethea MD - 10/18/2023 10:51 [...] ketoacidosis, elevated cardiac enzymes. Further evaluation with [facility] revealed multivessel coronary artery disease. Patient transferred to [facility] for CABG. Patient underwent CABG x 3, mechanical AVR . Endocrine diabetes management. Hemoglobin A1c noted to be 8.1% 10/14, Patient has an insulin pump at home, not review his setting as the pump not available bedside. Patient continues to be confused and could not provide any history From endocrinology note in the past at [facility] 2021: BASAL RATE TOTAL BASAL DAILY DOSE: [...] PUMP: Continue Omnipod 5 insulin pump with One-Song G6 CGM at home settings: TIME BASAL [...] high Assessment /Plan Principal Problem: CAD in eek artery 1. Uncontrolled type 1 diabetes, A1c [...] don't hesitate to call. Augustin Bethea MD [facility] [email or web address] Office phone: [phone] Office fax: [phone] SPECIALIST SPECIALIST * Fernandez Carranza MD - 10/14/2023 3:27 PM CSTAssociated Order(s): IP CONSULT TO NEPHROLOGY Images from the original note were not included. Nephrology Juvenal Garvin Jr. - 1970 Primary : Aditya Correa MD History and interval events: 53-year-old gentleman with history of type 1 diabetes mellitus on insulin pump, CHF, CAD, ESRD on peritoneal dialysis initially presented to [facility] in [facility] on October 09 for symptoms [...] him to hemodialysis perioperatively Fernandez Carranza MD [facility]: Ron R. Newhall, LESLY Givens MD Justin Krafft, PA Derek Larson, MD FASN Rose Mattli, NP Rohan Devanpalli, MD Candace Shirley, NP [address] - [address] [place], [place] [address] [phone] - Office [phone] - Fax SPECIALIST SPECIALIST * Guerline Rodriguez PA - 10/14/2023 2:10 PM CSTAssociated Order(s): IP CONSULT TO CARDIOTHORACIC SURGERY Cardiothoracic Surgery Consultation Patient Name: Juvenal Garvin Jr. Admit Date: 10/13/2023 Admitting Provider: Julio Lopez DO Chief Complaint Multivessel coronary artery disease, aortic valve stenosis History of Present Illness Juvenal Garvin is a 53-year-old male who has been transferred to [facility] for consideration of coronary artery bypass grafting and aortic valve replacement. His past medical history includes severe CAD with previous PCI, paroxysmal atrial fibrillation, type 1 diabetes mellitus, ESRD on peritoneal dialysis, hypertension, hyperlipidemia, and sleep apnea. He presented to [facility] in [place], [place] on 10/09/23 complaining of fatigue, malaise, [...] the catheterization. He has been transferred to [facility] for consideration of coronary artery bypass and aortic valve replacement. He had been receiving Eliquis and Plavix up until transfer to [facility]. Since arrival here he denies any additional chest pain episodes. His glucose levels continue to fluctuate but have reasonably controlled today. Past Medical History: Diagnosis Date CAD (coronary artery disease) Chest pain Diabetes mellitus (HCC) Diabetes mellitus type I (HCC) Dialysis patient ([facility]) (HCC) ESRD on dialysis ([facility]) (HCC) GERD (gastroesophageal reflux disease) Hyperlipidemia Hypertension [...] mg, oral, BID AC (bkfst, lunch), Vinay Partt DO, 600 mg at 10/14/23 1229 glucagon [...] Jaqueline Valero MD at 10/15/2023 10:55 AM TREE SPECIALIST SPECIALIST SPECIALIST SPECIALIST SPECIALIST Associated attestation - Jaqueline Valero MD - 10/15/2023 10:55 AM TREE SPECIALIST I have seen and examined the patient, reviewed the electronic medical record, personally reviewed the patient's cardiac catheterization, and agree with the attached history and physical. In brief, he is a 53-year-old man with a history of end-stage renal disease on peritoneal dialysis,myocardial infarction, multiple prior coronary stenting procedures, and DVT who presented to [facility] with progressive exertional shortness breath, chest pain, and hyperglycemia. Repeat cardiac catheterization there revealed progressive coronary artery disease, which is now severe in all 3main coronary arteries. His left ventricular systolic function was abnormal and an echocardiogram there revealed significant aortic valve stenosis. And severe left ventricular systolic dysfunction. He was transferred to [facility] for further workup and treatment. ASSESSMENT: [...] for Monday. Jaqueline Valero MD Cardiothoracic Surgery [facility] * Pradeep Reeves, CLOTH PAINTER - 10/14/2023 12:13 PM CSTAssociated Order(s): IP CONSULT TO CARDIOLOGY Cardiology Consult - [facility] Reason For Consult: CAD Requesting Provider: Frank Cody MD SUBJECTIVE: Chief Complaint/History of Present Illness: Mr. Garvin is a 53 y/o man with hx of hypertension, dyslipidemia, diabetes, CAD s/p multiple prior PCI, ESRD, paroxysmal atrial fibrillation and DVT and BEN. The patient presented to [facility] with a complaint of hyperglycemia. He has [...] on his echo. He was transferred to [facility] for CTS evaluation. He is on a [...] Diabetes mellitus type I (HCC) Dialysis patient ([facility]) (HCC) ESRD on dialysis ([facility]) (HCC) GERD (gastroesophageal reflux disease) Hyperlipidemia Hypertension [...] PUMP: Continue Omnipod 5 insulin pump with One-Song G6 CGM at home settings: TIME BASAL [...] affect appropriate -Cardiac Cath (10/13/23 at [facility]): LM no dz. LCX 99% ostial stenosis and 90% stenosis atOM/LCX bifurcation. LAD mild diffuse disease in the ostium with a 90% stenosis at the origin of a very small high diagonal branch and otherwise mild LAD disease. RCA 99% mid stenosis. -Echo (10/11/23 at [facility]): LVEF 20-25%, moderate ASSESSMENT/PLAN: 1. CAD: The [...] please don't hesitate to call. SHAMIKA Donald [facility] 10/14/2023 12:13 PM Cosigned by Felipe Robledo DO at 10/15/2023 10:13 AM TREE SPECIALIST SPECIALIST SPECIALIST SPECIALIST SPECIALIST documented in this encounter Nursing Notes * [...] (Comments): blister-popped Wound Status Healing Site Assessment Aucilla;Moist Marie-wound Assessment Fragile;Flaky;Dry;Erythematous Margins Defined edges Closure Unapproximated Drainage Amount Small Drainage Description Serous Drainage Odor No odor Dressing Status New Dressing Silver foam;Gauze rolled Interventions Cleansed Recommendations: display decorator to complete Polymem dressing as ordered. Pressure injury prevention measures dn moisture management in place. Education: Plan of Care discussed with: Patient, display decorator Questions answered: YES Wound/Ostomy will follow patient: [...] PUMP: Continue Omnipod 5 insulin pump with Agolocom G6 CGM at home settings: TIME BASAL [...] high Assessment /Plan Principal Problem: CAD in eek artery 1. Uncontrolled type 1 diabetes, A1c [...] out of town till 11/14. Pl call content creation manager provider. Once ready per primary team can [...] don't hesitate to call. Augustin Bethea MD [facility] [email or web address] Office phone: [phone] Office fax: [phone] * Plan of Care - Jessica Rodriguez [...] PUMP: Continue Omnipod 5 insulin pump with One-Song G6 CGM at home settings: TIME BASAL [...] high Assessment /Plan Principal Problem: CAD in eek artery 1. Uncontrolled type 1 diabetes, A1c [...] don't hesitate to call. Augustin Bethea MD [facility] [email or web address] Office phone: [phone] Office fax: [phone] * Post-Procedure Note - Basilia John RN [...] PUMP: Continue Omnipod 5 insulin pump with One-Song G6 CGM at home settings: TIME BASAL [...] high Assessment /Plan Principal Problem: CAD in eek artery 1. Uncontrolled type 1 diabetes, A1c [...] don't hesitate to call. Augustin Bethea MD [facility] [email or web address] Office phone: [phone] Office fax: [phone] * Post-Procedure Note - Basilia John RN [...] 10/30/2023 2:42 PM CDT Received notification from [facility] acute rehab patient liaison, Carey Phillips , patients [employer] Medicare insurance denied request for authorization for inpatient acute rehab . Peer to peer offered at [phone] opt 4.peer to peer needs to be requested by 1200 noon tomorrow, 10/30. Reference no. [id number]. Member ID no. [id number]. Guerline GRACE notified of above. * Consults, [...] PUMP: Continue Omnipod 5 insulin pump with One-Song G6 CGM at home settings: TIME BASAL [...] high Assessment /Plan Principal Problem: CAD in eek artery 1. Uncontrolled type 1 diabetes, A1c [...] don't hesitate to call. Augustin Bethea MD [facility] [email or web address] Office phone: [phone] Office fax: [phone] * Post-Procedure Note - Sugar Swanson RN [...] Afebrile. Room air. NSR. Pain treated with Thompson. ABX started for patients right leg.Lower dopplers [...] Room air. NSR. Patient pain treated with Thompson. Left herman dressing changed x1 due to leaking. SPECIALIST * Plan of Care - Roel West LCSW - 10/28/2023 3:40 PM CST Recreation Clerk covering and followed up with request to learn if patient was approved for inpatient rehabilitation/insurance authorization status. SW inquired with Dr. Mya Frederick and awaiting notification. Intake Coordinators are not on-site and not customary to receive notification from insurance on weekend. SPECIALIST * Consults, Subsequent - Augustin Bethea MD - 10/28/2023 2:50 PM TREE SPECIALIST Endocrine Note Reason for Consult: type 1 [...] THIS IS FOR THE INSULIN PUMP: Continue ModanisaipClickN KIDS 5 insulin pump with One-Song G6 CGM at home settings: TIME BASAL [...] high Assessment /Plan Principal Problem: CAD in eek artery 1. Uncontrolled type 1 diabetes, A1c [...] don't hesitate to call. Augustin Bethea MD [facility] [email or web address] Office phone: [phone] Office fax: [phone] SPECIALIST SPECIALIST * Post-Procedure Note - Basilia John RN - 10/28/2023 7:14 AM TREE SPECIALIST Peritoneal Dialysis Treatment Summary: Juvenal Micahel Garvin Jr. received peritoneal dialysis on 10/27/2023 [...] well. Denied any c/o. PD drsg D&I SPECIALIST * Consults, Subsequent - Augustin Bethea MD - 10/27/2023 5:47 PM TREE SPECIALIST Endocrine Note Reason for Consult: type 1 [...] PUMP: Continue Omnipod 5 insulin pump with One-Song G6 CGM at home settings: TIME BASAL [...] high Assessment /Plan Principal Problem: CAD in eek artery 1. Uncontrolled type 1 diabetes, A1c [...] don't hesitate to call. Augustin Bethea MD [facility] [email or web address] Office phone: [phone] Office fax: [phone] SPECIALIST * Plan of Care - Genie Benjamin RN - 10/27/2023 12:55 PM CST [facility] inpatient acute manager rehab pursuing insurance authorization for rehab when patient medically stable for discharge to rehab. SPECIALIST * Post-Procedure Note - Radha Mercado RN [...] Tolerated tx without issues. Effluent clear yellow. SPECIALIST * Consults, Subsequent - Augustin Bethea MD - 10/26/2023 6:25 PM TREE SPECIALIST Endocrine Note Reason for Consult: type 1 [...] PUMP: Continue Omnipod 5 insulin pump with One-Song G6 CGM at home settings: TIME BASAL [...] high Assessment /Plan Principal Problem: CAD in eek artery 1. Uncontrolled type 1 diabetes, A1c [...] don't hesitate to call. Augustin Bethea MD [facility] [email or web address] Office phone: [phone] Office fax: [phone] SPECIALIST * Plan of Care - Manda Solorzano RN - 10/26/2023 12:06 PM CST Per LIANET, pt has been accepted to [facility] Rehab (auth pending). Pt will be removed from [facility] HH schedule and no services provided at this time. SPECIALIST * Plan of Care - Jacquelin Veliz MSW - 10/26/2023 10:43 AM CST AUTOMATIC SCREWMAKER received message from Michelle with [facility] and they are able to accept Pt. They will start insurance authorization as PA feels that Pt is close to discharge. AUTOMATIC SCREWMAKER met with Pt at bedside to [facility] and will be starting insurance authorization for him. Pt states that he is agreeable to discharging to acute rehab when ready for discharge. SPECIALIST * Post-Procedure Note - Basilia John RN - 10/26/2023 7:30 AM TREE SPECIALIST Peritoneal Dialysis Treatment Summary: Juvenal Garvin Jr. [...] well. Denied any c/o. PD drsg D&I SPECIALIST * Plan of Care - Cyndi Persaud RN - 10/25/2023 4:14 PM CST Goals: Clinical Goals for the Shift: VSS. Afebrile. Room air. NSR. Monitor heart rate and rhythm. Manage pain. Manage heparin drip. Monitor PTTs. PD. Walk x3. Ensure safety and comfort. Summary: VSS. Afebrile. Room air. NSR. Pain treated with a one time dose of Thompson. Most recent PTT is 72. Heparin drip at 12.7units/kg/hr. SPECIALIST * Consults, Subsequent - Augustin Bethea MD - 10/25/2023 11:14 AM TREE SPECIALIST Endocrine Note Reason for Consult: type 1 [...] THIS IS FOR THE INSULIN PUMP: Continue [employer]ya 5 insulin pump with One-Song G6 CGM at home settings: TIME BASAL [...] high Assessment /Plan Principal Problem: CAD in eek artery 1. Uncontrolled type 1 diabetes, A1c [...] don't hesitate to call. Augustin Bethea MD [facility] [email or web address] Office phone: [phone] Office fax: [phone] SPECIALIST * Post-Procedure Note - Radha Mercado RN [...] Comments: Tolerated tx well. Effluent clear, yellow. SPECIALIST * Plan of Care - Carey Alas [...] 20 SpO2: [96 %-98 %] 96 % SPECIALIST * Consults, Subsequent - Augustin Bethea MD - 10/24/2023 11:07 AM TREE SPECIALIST Endocrine Note Reason for Consult: type 1 [...] PUMP: Continue Omnipod 5 insulin pump with One-Song G6 CGM at home settings: TIME BASAL [...] high Assessment /Plan Principal Problem: CAD in eek artery 1. Uncontrolled type 1 diabetes, A1c [...] don't hesitate to call. Augustin Bethea MD [facility] [email or web address] Office phone: [phone] Office fax: [phone] SPECIALIST * Post-Procedure Note - Radha Mercado RN [...] Tolerated tx without issues. Effluent clear yellow. SPECIALIST * Plan of Care - Lucinda Mathews [...] during sleep periods will improve Outcome: Progressing SPECIALIST SPECIALIST SPECIALIST * Plan of Care - Carey Alas [...] 20 SpO2: [95 %-99 %] 95 % SPECIALIST * Plan of Care - Genie Benjamin RN - 10/23/2023 12:17 PM CST PT/OT recommending inpatient acute rehab at discharge. Informed patient of above. Patient declined rehab facility list and states he prefers [facility] inpatient acute rehab hospital. Referral sent. Response pending. SPECIALIST * ECIN Note - Genie Benjamin RN [...] for surgical intervention on 10/14/23 from [facility]. Pt is s/p CABG x 3 (SVG-PDA, SVG-OM, BRICE-LAD) and mechanical AVR on 10/[address] Valero. Pt has history of ESRD on PD, CAD s/p PCI, [place], and DVT on chronic anticoagulation, Type 1 [...] and mobility at baseline. 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 -HK Grooming: Where assessed -- Chair -HK Grooming: Level of assistance -- Minimum Assist Pt exhibiting functionally weak web specialist strength and fine motor skills with BUEs. [...] -- Moderate assist santa/doff B socks with patient coordinator front desk and sock aid,Minimal assist santa/doff sweatpants with patient coordinator front desk -KB -- Bed Mobility Comments 1 SBA [...] for surgical intervention on 10/14/23 from [facility]. Pt is s/p CABG x 3 (SVG-PDA, SVG-OM, BRICE-LAD) and mechanical AVR on 10/[address] Valero. 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 Pt is s/p CABG x 3 (SVG-PDA, SVG-OM, BRICE-LAD) and mechanical AVR on 10/[address] Valero. Pt has history of ESRD on PD, CAD s/p PCI, [place], and DVT on chronic anticoagulation, Type 1 [...] Initials Name Effective Dates SS Nida Starr, GLASSWARE SELECTOR 06/30/22 - Eliana Joiner, PT 12/05/22 - NW Gustavo Swan, PT 04/10/23 - PT Notes 10/21/2023 10:25 AM Progress Notes signed by Gina Mason DPT 10/23/2023 11:53 AM Progress Notes signed by Gustavo Swan, PT , FILTER BED PLACER Eval and Treat Last 72 Hours FILTER BED PLACER Evaluation No documentation. FILTER BED PLACER Treatment No documentation. Clinical Swallow Study No documentation. FILTER BED PLACER Notes Notes from 10/21/23 through 10/23/23 No notes of this type exist for this encounter. SPECIALIST * Consults, Subsequent - Augustin Bethea MD - 10/23/2023 10:48 AM TREE SPECIALIST Endocrine Note Reason for Consult: type 1 [...] PUMP: Continue Omnipod 5 insulin pump with One-Song G6 CGM at home settings: TIME BASAL [...] high Assessment /Plan Principal Problem: CAD in eek artery 1. Uncontrolled type 1 diabetes, A1c [...] don't hesitate to call. Augustin Bethea MD [facility] [email or web address] Office phone: [phone] Office fax: [phone] SPECIALIST * Post-Procedure Note - Radha Mercado, LUAN [...] Tolerated tx without issues. Effluent clear, yellow. SPECIALIST * Plan of Care - Jessica Rodriguez [...] impaired skin integrity will decrease Outcome: Progressing SPECIALIST * Post-Procedure Note - Rayna Be RN - 10/22/2023 12:03 PM TREE SPECIALIST Peritoneal Dialysis Treatment Summary: Juvenal Garvin Jr. [...] dwell time. Added dwell time 7 minutes. SPECIALIST * Plan of Care - Hermes Savage, STOCKFEED MILLER - 10/22/2023 7:30 AM CST Problem: Obstructive Sleep Apnea (BEN) Goal: Patients ability to maintain adequate ventilation during sleep periods will improve Outcome: Progressing Positive Expiratory Pressure Therapy Patient educated on goals of vibratory PEP therapy. Will continue to monitor patient technique and encourage use of Vibratory PEP device. Patient educated on effective cough and deep breathing at this time. SPECIALIST * Plan of Care - Jessica Rodriguez [...] impaired skin integrity will decrease Outcome: Progressing SPECIALIST * Consults, Subsequent - Augustin Bethea MD - 10/21/2023 4:43 PM TREE SPECIALIST Endocrine Note Reason for Consult: type 1 [...] PUMP: Continue Omnipod 5 insulin pump with One-Song G6 CGM at home settings: TIME BASAL [...] high Assessment /Plan Principal Problem: CAD in eek artery 1. Uncontrolled type 1 diabetes, A1c [...] don't hesitate to call. Augustin Bethea MD [facility] [email or web address] Office phone: [phone] Office fax: [phone] SPECIALIST * Plan of Care - Hermes Savage [...] cough and deep breathing at this time. SPECIALIST * Post-Procedure Note - Sugar Swanson RN [...] fibrin. Dr. Martinez notified of all findings. SPECIALIST * Plan of Care - Dominique Fuentes RRT - 10/20/2023 8:19 PM CST Problem: Respiratory Goal: Achieves optimal ventilation and oxygenation Outcome: Progressing Positive Expiratory Pressure Therapy Patient educated on goals of PEP therapy. Will continue to monitor patient technique and encourage use of PEP device. Patient educated on effective cough and deep breathing at this time. SPECIALIST * Plan of Care - Summer Pradhan [...] except when coughing. Tylenol given. Comfort/safety ensured. SPECIALIST * Consults, Subsequent - Augustin Bethea MD - 10/20/2023 3:50 PM TREE SPECIALIST Endocrine Note Reason for Consult: type 1 [...] PUMP: Continue Omnipod 5 insulin pump with Agolocom G6 CGM at home settings: TIME BASAL [...] high Assessment /Plan Principal Problem: CAD in eek artery 1. Uncontrolled type 1 diabetes, A1c [...] don't hesitate to call. Augustin Bethea MD [facility] [email or web address] Office phone: [phone] Office fax: [phone] SPECIALIST * Post-Procedure Note - Sugar Swanson RN [...] Dressing c/d/I. Clear yellow effluent with fibrin. SPECIALIST * Plan of Care - Hermes Savage [...] to monitor sputum amount, color, and consistency. SPECIALIST * Plan of Care - Campos Farmer [...] labs, titrate heparin to therapeutic, pain control SPECIALIST * Consults, Subsequent - Augustin Bethea MD - 10/19/2023 7:08 PM TREE SPECIALIST Endocrine Note Reason for Consult: type 1 [...] PUMP: Continue Omnipod 5 insulin pump with Agolocom G6 CGM at home settings: TIME BASAL [...] high Assessment /Plan Principal Problem: CAD in eek artery 1. Uncontrolled type 1 diabetes, A1c [...] don't hesitate to call. Augustin Bethea MD [facility] [email or web address] Office phone: [phone] Office fax: [phone] SPECIALIST * Plan of Care - Toña Saha RRT - 10/19/2023 3:36 PM CST Problem: [...] protocol. Wean FiO2 to maintain SpO2 >92%. SPECIALIST * Post-Procedure Note - Sugar Swanson RN [...] Clear yellow effluent with fibrin. MD notified. SPECIALIST * Plan of Care - Ken Martell RRT - 10/18/2023 10:25 PM CST NPPV Patient is tolerating non-invasive ventilation well. Mask fits well with minimal leak. No skin break down noted. Will continue to monitor and titrate per MD order. SPECIALIST * Provider Query - Dawna Castellanos NP - 10/18/2023 6:36 PM CST The documentation is unclear. Please clarify the 10/17 documentation of NSTEMI. (See Criteria Below). ___ Hx of NSTEMI (Greater than 28 days ago) _x__ Acute NSTEMI occurred at OSH and pt transferred to [facility] for continued care for NSTEMI ___ Other (Specify): Provider Response: Clinical Indicators/Treatment: - Per EPIC: Hx of NSTEMI in June 2022 - Transfer from OSH with CAD and - 10/17 PN: NSTEMI s/p CABG...During hospitalization found to have elevated Troponins prompted cardiology evaluation and LHC significant for multivessel CAD and subsequently also found aortic stenosis. - 10/18 PN : CAD.. Prior KY and multiple PCI.. the patient underwent cardiac cath that showed multivessel disease. - Labs/Notes from OSH not available - Treatment: CABG: References: Fourth [place] Definition of Myocardial Infarction Myocardial Infarction Diagnosis of myocardial infarction requires: Elevated troponin blood test (troponin value above 99th percentile upper reference limit) AND at least one of the following: Symptoms of acute myocardial ischemia (Types 1-5 [place]) Clinical evidence of ischemia, as evidenced in an EKG showing new ischemic changes (Type 1, Type 2,Type 3, or Type 4a [place]) Development of pathological Q waves (Types 1-5 [place]) Imaging evidence of new loss of viable myocardium or new regional wall motion abnormality in a pattern consistent with an ischemic etiology (Types 1-5 [place]) Identification of a coronary thrombus by angiography including intracoronary imaging or by autopsy (Type 1 [place] only) Angiographic findings consistent with procedural flow-limiting [...] Guidelines for Coding and Reporting, 2019 Fourth [place] Definition of Myocardial Infarction, Scot Uriostegui et al., Journal of [place] College of Cardiology 2018March 2018, http://www.onlinejacc.org/content/early//j.jacc .[id number] Fourth [place] Definition Separates KY From Myocardial Injury, Lisa Freeman., [employer] News, April 15, 2018, [email or web address] [place] definition of myocardial infarction, Joint ESC/ACCF/AHA/WHF Task [...] become part of the patient???s medical record. SPECIALIST * Plan of Care - Renetta Keys [...] 2L NC. Pulls 1500 on IS. 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 Insulin gtt continues per orders. Appetite hindered due to nausea and some vomiting this afternoon. Zofran and haldol given. Pt states is better but doesn't want to eat at this time. Will continue to encourage increased activity, IS, Improved appetite, SPECIALIST * Post-Procedure Note - Sugar Swanson RN [...] and intact and effluent clear and yellow. SPECIALIST * Plan of Care - Ken Martell, FANY - 10/18/2023 3:31 AM CST Mechanical Ventilation Patient is seen on full ventilator support. Patient is synchronous with the ventilator at the time.Will continue to monitor all pertinent lab data, chest radiographs and CT scans when available. Will titrate per MD order. SPECIALIST * Op Note - Jaqueline Valero MD [...] mm OnX mechanical prosthesis, model #ONXANE, serial #[id number] ) 2. Coronary artery bypass grafting x [...] placement (25 cm) DATE OF PROCEDURE 10/17/2023 INSEMINATOR CEZAR Bernstein ANESTHESIA General Endotracheal Anesthesia ANESTHESIOLOGIST [...] with continuous 6-0 Prolene suture. A retrograde orthotic aide was given, the patient was placed into [...] checked through the bypass grafts with a [employer] Doppler flow probe and each was found [...] Physician) Aditya Correa MD (Primary Care Provider) SPECIALIST * Brief Op Note - Jaqueline Valero MD - 10/17/2023 8:47 AM CST Operative Progress Note Surgical Team: Surgeons and Role: * Jaqueline Valero MD - Primary Anesthesiologist: Ayden Alan MD CONCRETE BOOM OPERATOR: Ravi Thacker CRNA Decay Control Operator: Chang Stout CCP; Fransisco Ziegler CCP Boil Off Worker: Nini Gibbs RN Scrub: Yamilet Bolivar RN; Teresa Dillon ST RNFA: Jessica Frost RN; Carey Weber RN Orientee Boil Off Worker: Dee Ibarra RN DATE OF SURGERY : 10/17/2023 Preoperative Diagnosis: Pre-op Diagnosis * Aortic valve stenosis, etiology of cardiac valve disease unspecified [I35.0] * Coronary arteriosclerosis in eek artery [I25.10] Postoperative Diagnosis: Post-op Diagnosis * Aortic valve stenosis, etiology of cardiac valve disease unspecified [I35.0] * Coronary arteriosclerosis in eek artery [I25.10] Procedure(s): Procedure(s) (LRB): CORONARY ARTERY [...] Implant Name Type Inv. Item Serial No. Nurse Special Lot No. LRB No. Used Action ON-X INTRNL Valve Coronary Aortic Mechanical On X 25mm ONXANE-25 - [id number] - [id number] ON-X INTRNL Valve Coronary Aortic Mechanical On X 25mm ONXANE-25 [id number] On-X Intrnl N/A 1 Implanted Blood/Blood Products Transfused: 1 unit platelets, 2 units FFP, 10 pack cryo, 3 units PRBC Complications: None Condition on Discharge from the operating room was stable Jaqueline Valero MD Date: 10/17/2023 Time: 12:59 PM No Resident involved on case SPECIALIST * Post-Procedure Note - Zia Mahoney RN - 10/17/2023 3:38 AM TREE SPECIALIST Peritoneal Dialysis Treatment Summary: Juvenal Garvin Jr. [...] well. Effluent yellow and clear. Dressing c/d/i. SPECIALIST * Plan of Care - Lucinda Mathews, FANY - 10/16/2023 9:28 PM CST NPPV- Patient is tolerating non-invasive ventilation well. Mask fits well with minimal leak. No skin break down noted. Will continue to monitor and titrate per MD order. Problem: Obstructive Sleep Apnea (BEN) Goal: Patients ability to maintain adequate ventilation during sleep periods will improve Outcome: Progressing SPECIALIST * Plan of Care - Yamilet Lopez [...] Understanding discharge needs will improve Outcome: Progressing SPECIALIST * Initial Assessments - Genie Benjamin RN - 10/16/2023 10:46 AM TREE SPECIALIST CM Initial Assessment Interview Note Information Obtained [...] Medicare and IDPA Prescription Coverage: yes Pharmacy: [id number] - [place], [place] - [address] [place] [address] Primary Care Provider: Aditya Correa MD Prior [...] a week How often do you attend muslim or buddhism services?: 1 to 4 times per year Do you belong to any clubs or organizations such as muslim groups, unions, fraternal [...] Screening Potential discharge needs include: Home Health: [facility] (10/16/231041) Dialysis: Dialysis History Start End Type Center Comments Peritoneal [facility] Dialysis Center Information [facility] Address: [address] [place] [address] Behavioral Health Services: Behavioral Health Services: No (10/16/231041) Patient expects to be Discharged to: Private residence, (10/16/231041) Additional Information: 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 [facility] [place], [place] under the care of Dr. Stephen. [...] Collaboration with patient, MD, direct care nurse, Recreation Clerk, and other members of the health care team to assure needed interventions completed. 2. Return patient to optimal level of self-care post discharge. 3. Interactive Multimedia Designer will follow for Discharge Planning - interventions as needed 4. Anticipated level of care at discharge 5. Planned Discharge Disposition Genie Benjamin RN SPECIALIST * Post-Procedure Note - Jackie Masters RN [...] & intact , Effluent clear & yellow SPECIALIST * Plan of Care - Juanito Barrett RRT - 10/15/2023 9:43 PM CST Nocturnal CPAP Patient is tolerating non-invasive ventilation well. Mask fits well with minimal leak. No skin break down noted. Will continue to monitor and titrate per MD order.Oxygen Therapy Patient is being managed on oxygen titration protocol. Wean FiO2 to maintain SpO2 >92%. SPECIALIST * Plan of Care - Janett Schulz [...] c/o chest pain, therapeutic on heparin infusion SPECIALIST * Post-Procedure Note - Zia Mahoney RN - 10/15/2023 4:44 AM TREE SPECIALIST Peritoneal Dialysis Treatment Summary: Juvenal Garvin Jr. [...] well. Effluent yellow and clear. Dressing c/d/I. SPECIALIST * Plan of Care - Juanito Barrett RRT - 10/14/2023 9:44 PM CST Nocturnal CPAP Patient is tolerating non-invasive ventilation well. Mask fits well with minimal leak. No skin break down noted. Will continue to monitor and titrate per MD order.Oxygen Therapy Patient is being managed on oxygen titration protocol. Wean FiO2 to maintain SpO2 >92%. SPECIALIST * Plan of Care - Janett Schulz [...] pain, heparin gtt subtherapeutic, adjusted trinity MAR SPECIALIST * Plan of Care - Ellie Zeng RN - 10/14/2023 1:55 AM CST Goals: Clinical Goals for the Shift: monitor vs tele labs and blood sugars, orientate to unit, promote comfort and safety, manage pain Summary: patient stable throughout shift with no complaints of pain. Blood sugars trending down, patient had RT set up CPAP for sleep. Patient NPO since 0000. 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 (CMS/HCC) (HCC) [...] PERITONEAL DIALYSIS (CCPD) Routine 10/29/2023 12:30 AM TREE SPECIALIST POCT GLUCOSE DEVICE Routine 10/28/2023 8:22 PM TREE SPECIALIST POCT GLUCOSE DEVICE Routine 10/28/2023 5:24 PM TREE SPECIALIST POCT GLUCOSE DEVICE Routine 10/28/2023 12:45 PM TREE SPECIALIST POCT GLUCOSE DEVICE Routine 10/28/2023 8:04 AM TREE SPECIALIST XR CHEST 1 VIEW IP Routine 10/28/2023 6:00 AM TREE SPECIALIST EGFR Routine 10/28/2023 12:34 AM TREE SPECIALIST APTT Routine 10/28/2023 12:34 AM TREE SPECIALIST PROTIME-INR Routine 10/28/2023 12:34 AM TREE SPECIALIST CBC WITHOUT DIFFERENTIAL Routine 10/28/2023 12:34 AM TREE SPECIALIST MAGNESIUM Routine 10/28/2023 12:34 AM TREE SPECIALIST RENAL FUNCTION PANEL Routine 10/28/2023 12:34 AM TREE SPECIALIST CONTINUOUS CYCLIC PERITONEAL DIALYSIS (CCPD) Routine 10/28/2023 12:30 AM TREE SPECIALIST POCT GLUCOSE DEVICE Routine 10/27/2023 10:01 PM TREE SPECIALIST POCT GLUCOSE DEVICE Routine 10/27/2023 5:48 PM TREE SPECIALIST CONTINUOUS CYCLIC PERITONEAL DIALYSIS (CCPD) Routine 10/27/2023 3:23 PM TREE SPECIALIST POCT GLUCOSE DEVICE Routine 10/27/2023 11:54 AM TREE SPECIALIST T4, FREE Routine 10/27/2023 11:02 AM TREE SPECIALIST POCT GLUCOSE DEVICE Routine 10/27/2023 8:28 AM TREE SPECIALIST XR CHEST 1 VIEW IP Routine 10/27/2023 6:14 AM TREE SPECIALIST OSMOLALITY, BLOOD Routine 10/27/2023 6:02 AM TREE SPECIALIST EGFR Routine 10/27/2023 2:30 AM TREE SPECIALIST APTT Routine 10/27/2023 2:30 AM TREE SPECIALIST PROTIME-INR Routine 10/27/2023 2:30 AM TREE SPECIALIST CBC WITHOUT DIFFERENTIAL Routine 10/27/2023 2:30 AM TREE SPECIALIST TSH Routine 10/27/2023 2:30 AM TREE SPECIALIST MAGNESIUM Routine 10/27/2023 2:30 AM TREE SPECIALIST RENAL FUNCTION PANEL Routine 10/27/2023 2:30 AM TREE SPECIALIST POCT GLUCOSE DEVICE Routine 10/26/2023 11:15 PM TREE SPECIALIST POCT GLUCOSE DEVICE Routine 10/26/2023 4:53 PM TREE SPECIALIST POCT GLUCOSE DEVICE Routine 10/26/2023 11:57 AM TREE SPECIALIST PEP THERAPY Routine 10/26/2023 8:00 AM TREE SPECIALIST POCT GLUCOSE DEVICE Routine 10/26/2023 8:00 AM TREE SPECIALIST XR CHEST 1 VIEW IP Routine 10/26/2023 5:09 AM TREE SPECIALIST EGFR Routine 10/26/2023 2:29 AM TREE SPECIALIST APTT Routine 10/26/2023 2:29 AM TREE SPECIALIST PROTIME-INR Routine 10/26/2023 2:29 AM TREE SPECIALIST CBC WITHOUT DIFFERENTIAL Routine 10/26/2023 2:29 AM TREE SPECIALIST MAGNESIUM Routine 10/26/2023 2:29 AM TREE SPECIALIST RENAL FUNCTION PANEL Routine 10/26/2023 2:29 AM TREE SPECIALIST APTT Timed 10/25/2023 9:15 PM TREE SPECIALIST POCT GLUCOSE DEVICE Routine 10/25/2023 9:14 PM TREE SPECIALIST POCT GLUCOSE DEVICE Routine 10/25/2023 4:51 PM TREE SPECIALIST APTT Timed 10/25/2023 2:48 PM TREE SPECIALIST POCT GLUCOSE DEVICE Routine 10/25/2023 11:15 AM TREE SPECIALIST POCT GLUCOSE DEVICE Routine 10/25/2023 9:49 AM TREE SPECIALIST POCT GLUCOSE DEVICE Routine 10/25/2023 7:36 AM TREE SPECIALIST XR CHEST 1 VIEW IP Routine 10/25/2023 6:52 AM TREE SPECIALIST APTT Routine 10/25/2023 6:48 AM TREE SPECIALIST POCT GLUCOSE DEVICE Routine 10/25/2023 4:23 AM TREE SPECIALIST EGFR Routine 10/25/2023 12:34 AM TREE SPECIALIST CBC WITHOUT DIFFERENTIAL Routine 10/25/2023 12:34 AM TREE SPECIALIST MAGNESIUM Routine 10/25/2023 12:34 AM TREE SPECIALIST RENAL FUNCTION PANEL Routine 10/25/2023 12:34 AM TREE SPECIALIST APTT Timed 10/25/2023 12:33 AM TREE SPECIALIST PROTIME-INR Timed 10/25/2023 12:33 AM TREE SPECIALIST CONTINUOUS CYCLIC PERITONEAL DIALYSIS (CCPD) Routine 10/25/2023 12:30 AM TREE SPECIALIST POCT GLUCOSE DEVICE Routine 10/24/2023 9:51 PM TREE SPECIALIST APTT STAT 10/24/2023 5:15 PM TREE SPECIALIST POCT GLUCOSE DEVICE Routine 10/24/2023 4:42 PM TREE SPECIALIST POCT GLUCOSE DEVICE Routine 10/24/2023 12:17 PM TREE SPECIALIST POCT GLUCOSE DEVICE Routine 10/24/2023 7:44 AM TREE SPECIALIST XR CHEST 1 VIEW IP Routine 10/24/2023 5:54 AM TREE SPECIALIST EGFR Routine 10/24/2023 1:03 AM TREE SPECIALIST PROTIME-INR Routine 10/24/2023 1:03 AM TREE SPECIALIST CBC WITHOUT DIFFERENTIAL Routine 10/24/2023 1:03 AM TREE SPECIALIST MAGNESIUM Routine 10/24/2023 1:03 AM TREE SPECIALIST RENAL FUNCTION PANEL Routine 10/24/2023 1:03 AM TREE SPECIALIST CONTINUOUS CYCLIC PERITONEAL DIALYSIS (CCPD) Routine 10/24/2023 12:30 AM TREE SPECIALIST POCT GLUCOSE DEVICE Routine 10/23/2023 11:14 PM TREE SPECIALIST POCT GLUCOSE DEVICE Routine 10/23/2023 10:43 PM TREE SPECIALIST PEP THERAPY Routine 10/23/2023 6:00 PM TREE SPECIALIST POCT GLUCOSE DEVICE Routine 10/23/2023 5:12 PM TREE SPECIALIST PEP THERAPY Routine 10/23/2023 1:00 PM TREE SPECIALIST POCT GLUCOSE DEVICE Routine 10/23/2023 12:08 PM TREE SPECIALIST PEP THERAPY Routine 10/23/2023 8:00 AM TREE SPECIALIST POCT GLUCOSE DEVICE Routine 10/23/2023 7:54 AM TREE SPECIALIST XR CHEST 1 VIEW IP Routine 10/23/2023 6:24 AM TREE SPECIALIST EGFR Routine 10/23/2023 1:53 AM TREE SPECIALIST PROTIME-INR Routine 10/23/2023 1:53 AM TREE SPECIALIST CBC WITHOUT DIFFERENTIAL Routine 10/23/2023 1:53 AM TREE SPECIALIST MAGNESIUM Routine 10/23/2023 1:53 AM TREE SPECIALIST RENAL FUNCTION PANEL Routine 10/23/2023 1:53 AM TREE SPECIALIST CONTINUOUS CYCLIC PERITONEAL DIALYSIS (CCPD) Routine 10/23/2023 12:30 AM TREE SPECIALIST POCT GLUCOSE DEVICE Routine 10/22/2023 11:55 PM TREE SPECIALIST PEP THERAPY Routine 10/22/2023 10:00 PM TREE SPECIALIST POCT GLUCOSE DEVICE Routine 10/22/2023 9:12 PM TREE SPECIALIST PEP THERAPY Routine 10/22/2023 6:00 PM TREE SPECIALIST POCT GLUCOSE DEVICE Routine 10/22/2023 5:22 PM TREE SPECIALIST PEP THERAPY Routine 10/22/2023 3:07 PM TREE SPECIALIST PEP THERAPY Routine 10/22/2023 3:07 PM TREE SPECIALIST PEP THERAPY Routine 10/22/2023 3:07 PM TREE SPECIALIST PEP THERAPY Routine 10/22/2023 3:07 PM TREE SPECIALIST POCT GLUCOSE DEVICE Routine 10/22/2023 12:49 PM TREE SPECIALIST POCT GLUCOSE DEVICE Routine 10/22/2023 8:12 AM TREE SPECIALIST XR CHEST 1 VIEW IP Routine 10/22/2023 6:38 AM TREE SPECIALIST EGFR Routine 10/22/2023 12:31 AM TREE SPECIALIST PROTIME-INR Routine 10/22/2023 12:31 AM TREE SPECIALIST CBC WITHOUT DIFFERENTIAL Routine 10/22/2023 12:31 AM TREE SPECIALIST MAGNESIUM Routine 10/22/2023 12:31 AM TREE SPECIALIST RENAL FUNCTION PANEL Routine 10/22/2023 12:31 AM TREE SPECIALIST CONTINUOUS CYCLIC PERITONEAL DIALYSIS (CCPD) Routine 10/22/2023 12:30 AM TREE SPECIALIST POCT GLUCOSE DEVICE Routine 10/21/2023 9:31 PM TREE SPECIALIST POCT GLUCOSE DEVICE Routine 10/21/2023 5:16 PM TREE SPECIALIST POCT GLUCOSE DEVICE Routine 10/21/2023 12:29 PM TREE SPECIALIST POCT GLUCOSE DEVICE Routine 10/21/2023 8:06 AM TREE SPECIALIST XR CHEST 1 VIEW IP Routine 10/21/2023 6:51 AM TREE SPECIALIST ECG 12-LEAD Routine 10/21/2023 4:39 AM TREE SPECIALIST EGFR Routine 10/21/2023 1:40 AM TREE SPECIALIST PROTIME-INR Routine 10/21/2023 1:40 AM TREE SPECIALIST CBC WITHOUT DIFFERENTIAL Routine 10/21/2023 1:40 AM TREE SPECIALIST MAGNESIUM Routine 10/21/2023 1:40 AM TREE SPECIALIST RENAL FUNCTION PANEL Routine 10/21/2023 1:40 AM TREE SPECIALIST CONTINUOUS CYCLIC PERITONEAL DIALYSIS (CCPD) Routine 10/21/2023 12:31 AM TREE SPECIALIST POCT GLUCOSE DEVICE Routine 10/20/2023 9:24 PM TREE SPECIALIST POCT GLUCOSE DEVICE Routine 10/20/2023 5:24 PM TREE SPECIALIST CONTINUOUS CYCLIC PERITONEAL DIALYSIS (CCPD) Routine 10/20/2023 3:51 PM TREE SPECIALIST CRITICAL CARE Routine 10/20/2023 12:45 PM TREE SPECIALIST 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/HCC) ([facility]) POCT GLUCOSE DEVICE Routine 10/20/2023 11:47 AM TREE SPECIALIST POCT GLUCOSE DEVICE Routine 10/20/2023 10:09 AM TREE SPECIALIST POCT GLUCOSE DEVICE Routine 10/20/2023 9:15 AM TREE SPECIALIST POCT GLUCOSE DEVICE Routine 10/20/2023 7:23 AM TREE SPECIALIST XR CHEST 1 VIEW IP Routine 10/20/2023 6:37 AM TREE SPECIALIST POCT GLUCOSE DEVICE Routine 10/20/2023 6:12 AM TREE SPECIALIST POCT GLUCOSE DEVICE Routine 10/20/2023 3:57 AM TREE SPECIALIST OXYHEMOGLOBIN, CENTRAL VENOUS Timed 10/20/2023 3:22 AM TREE SPECIALIST APTT STAT 10/20/2023 3:22 AM TREE SPECIALIST POCT GLUCOSE DEVICE Routine 10/20/2023 3:21 AM TREE SPECIALIST POCT GLUCOSE DEVICE Routine 10/20/2023 2:10 AM TREE SPECIALIST POCT GLUCOSE DEVICE Routine 10/20/2023 12:57 AM TREE SPECIALIST OXYHEMOGLOBIN, CENTRAL VENOUS Routine 10/20/2023 12:21 AM TREE SPECIALIST EGFR Routine 10/20/2023 12:21 AM TREE SPECIALIST CALCIUM, IONIZED Routine 10/20/2023 12:21 AM TREE SPECIALIST PROTIME-INR Routine 10/20/2023 12:21 AM TREE SPECIALIST CBC WITHOUT DIFFERENTIAL Routine 10/20/2023 12:21 AM TREE SPECIALIST MAGNESIUM Routine 10/20/2023 12:21 AM TREE SPECIALIST RENAL FUNCTION PANEL Routine 10/20/2023 12:21 AM TREE SPECIALIST POCT GLUCOSE DEVICE Routine 10/20/2023 12:20 AM TREE SPECIALIST POCT GLUCOSE DEVICE Routine 10/19/2023 11:03 PM TREE SPECIALIST POCT GLUCOSE DEVICE Routine 10/19/2023 10:01 PM TREE SPECIALIST APTT STAT 10/19/2023 9:47 PM TREE SPECIALIST POCT GLUCOSE DEVICE Routine 10/19/2023 9:15 PM TREE SPECIALIST POCT GLUCOSE DEVICE Routine 10/19/2023 8:12 PM TREE SPECIALIST POCT GLUCOSE DEVICE Routine 10/19/2023 6:13 PM TREE SPECIALIST POCT GLUCOSE DEVICE Routine 10/19/2023 5:24 PM TREE SPECIALIST XR CHEST 1 VIEW ED Urgent/IP Urgent 10/19/2023 4:29 PM TREE SPECIALIST POCT GLUCOSE DEVICE Routine 10/19/2023 4:25 PM TREE SPECIALIST ECG 12-LEAD STAT 10/19/2023 3:21 PM TREE SPECIALIST XR KUB IP Routine 10/19/2023 2:49 PM TREE SPECIALIST APTT STAT 10/19/2023 2:44 PM TREE SPECIALIST LIPASE Routine 10/19/2023 2:44 PM TREE SPECIALIST AMYLASE Routine 10/19/2023 2:44 PM TREE SPECIALIST HEPATIC FUNCTION PANEL Routine 10/19/2023 2:44 PM TREE SPECIALIST POCT GLUCOSE DEVICE Routine 10/19/2023 2:40 PM TREE SPECIALIST POCT GLUCOSE DEVICE Routine 10/19/2023 12:25 PM TREE SPECIALIST POCT GLUCOSE DEVICE Routine 10/19/2023 11:12 AM TREE SPECIALIST POCT GLUCOSE DEVICE Routine 10/19/2023 10:54 AM TREE SPECIALIST POCT GLUCOSE DEVICE Routine 10/19/2023 9:04 AM TREE SPECIALIST OXYHEMOGLOBIN, CENTRAL VENOUS STAT 10/19/2023 8:58 AM TREE SPECIALIST APTT STAT 10/19/2023 8:58 AM TREE SPECIALIST POCT GLUCOSE DEVICE Routine 10/19/2023 7:19 AM TREE SPECIALIST OXYHEMOGLOBIN, CENTRAL VENOUS STAT 10/19/2023 7:09 AM TREE SPECIALIST LACTATE STAT 10/19/2023 7:09 AM TREE SPECIALIST CRITICAL CARE Routine 10/19/2023 6:57 AM TREE SPECIALIST CAD in eek artery POCT GLUCOSE DEVICE Routine 10/19/2023 6:57 AM TREE SPECIALIST XR CHEST 1 VIEW IP Routine 10/19/2023 6:27 AM TREE SPECIALIST POCT GLUCOSE DEVICE Routine 10/19/2023 6:06 AM TREE SPECIALIST POCT GLUCOSE DEVICE Routine 10/19/2023 5:10 AM TREE SPECIALIST APTT STAT 10/19/2023 4:14 AM TREE SPECIALIST POCT GLUCOSE DEVICE Routine 10/19/2023 4:03 AM TREE SPECIALIST POCT GLUCOSE DEVICE Routine 10/19/2023 2:56 AM TREE SPECIALIST OXYHEMOGLOBIN, CENTRAL VENOUS Routine 10/19/2023 2:11 AM TREE SPECIALIST EGFR Routine 10/19/2023 2:11 AM TREE SPECIALIST CALCIUM, IONIZED Routine 10/19/2023 2:11 AM TREE SPECIALIST PROTIME-INR Routine 10/19/2023 2:11 AM TREE SPECIALIST CBC WITHOUT DIFFERENTIAL Routine 10/19/2023 2:11 AM TREE SPECIALIST MAGNESIUM Routine 10/19/2023 2:11 AM TREE SPECIALIST BLOOD GAS, ARTERIAL Routine 10/19/2023 2:11 AM TREE SPECIALIST RENAL FUNCTION PANEL Routine 10/19/2023 2:11 AM TREE SPECIALIST POCT GLUCOSE DEVICE Routine 10/19/2023 2:07 AM TREE SPECIALIST CONTINUOUS CYCLIC PERITONEAL DIALYSIS (CCPD) Routine 10/19/2023 12:31 AM TREE SPECIALIST POCT GLUCOSE DEVICE Routine 10/19/2023 12:01 AM TREE SPECIALIST POCT GLUCOSE DEVICE Routine 10/18/2023 11:03 PM TREE SPECIALIST POCT GLUCOSE DEVICE Routine 10/18/2023 10:11 PM TREE SPECIALIST APTT STAT 10/18/2023 9:21 PM TREE SPECIALIST POCT GLUCOSE DEVICE Routine 10/18/2023 9:19 PM TREE SPECIALIST POCT GLUCOSE DEVICE Routine 10/18/2023 8:37 PM TREE SPECIALIST BLOOD GAS, ARTERIAL STAT 10/18/2023 8:34 PM TREE SPECIALIST CRITICAL CARE Routine 10/18/2023 6:49 PM TREE SPECIALIST CAD in eek artery POCT GLUCOSE DEVICE Routine 10/18/2023 6:38 PM TREE SPECIALIST POCT GLUCOSE DEVICE Routine 10/18/2023 5:45 PM TREE SPECIALIST XR KUB IP Routine 10/18/2023 5:42 PM TREE SPECIALIST POCT GLUCOSE DEVICE Routine 10/18/2023 4:47 PM TREE SPECIALIST APTT Timed 10/18/2023 2:55 PM TREE SPECIALIST POCT GLUCOSE DEVICE Routine 10/18/2023 2:52 PM TREE SPECIALIST POCT GLUCOSE DEVICE Routine 10/18/2023 1:53 PM TREE SPECIALIST POCT GLUCOSE DEVICE Routine 10/18/2023 12:48 PM TREE SPECIALIST POCT GLUCOSE DEVICE Routine 10/18/2023 12:00 PM TREE SPECIALIST POCT GLUCOSE DEVICE Routine 10/18/2023 10:57 AM TREE SPECIALIST POCT GLUCOSE DEVICE Routine 10/18/2023 9:52 AM TREE SPECIALIST POCT GLUCOSE DEVICE Routine 10/18/2023 8:46 AM TREE SPECIALIST POCT GLUCOSE DEVICE Routine 10/18/2023 7:58 AM TREE SPECIALIST CRITICAL CARE Routine 10/18/2023 7:27 AM TREE SPECIALIST CAD in eek artery POCT GLUCOSE DEVICE Routine 10/18/2023 7:02 AM TREE SPECIALIST POCT GLUCOSE DEVICE Routine 10/18/2023 6:04 AM TREE SPECIALIST XR CHEST 1 VIEW IP Routine 10/18/2023 5:38 AM TREE SPECIALIST POCT GLUCOSE DEVICE Routine 10/18/2023 5:04 AM TREE SPECIALIST POCT GLUCOSE DEVICE Routine 10/18/2023 4:03 AM TREE SPECIALIST POCT GLUCOSE DEVICE Routine 10/18/2023 3:04 AM TREE SPECIALIST POCT GLUCOSE DEVICE Routine 10/18/2023 1:57 AM TREE SPECIALIST EGFR Routine 10/18/2023 1:54 AM TREE SPECIALIST CALCIUM, IONIZED Routine 10/18/2023 1:54 AM TREE SPECIALIST PROTIME-INR Routine 10/18/2023 1:54 AM TREE SPECIALIST FIBRINOGEN Routine 10/18/2023 1:54 AM TREE SPECIALIST CBC WITHOUT DIFFERENTIAL Routine 10/18/2023 1:54 AM TREE SPECIALIST MAGNESIUM Routine 10/18/2023 1:54 AM TREE SPECIALIST BLOOD GAS, ARTERIAL STAT 10/18/2023 1:54 AM TREE SPECIALIST RENAL FUNCTION PANEL Routine 10/18/2023 1:54 AM TREE SPECIALIST POCT GLUCOSE DEVICE Routine 10/18/2023 12:57 AM TREE SPECIALIST CONTINUOUS CYCLIC PERITONEAL DIALYSIS (CCPD) Routine 10/18/2023 12:31 AM TREE SPECIALIST POCT GLUCOSE DEVICE Routine 10/18/2023 12:04 AM TREE SPECIALIST POCT GLUCOSE DEVICE Routine 10/17/2023 11:00 PM TREE SPECIALIST BLOOD GAS, ARTERIAL STAT 10/17/2023 10:56 PM TREE SPECIALIST LACTATE STAT 10/17/2023 10:55 PM TREE SPECIALIST DIFFERENTIAL AUTO STAT 10/17/2023 10:55 PM TREE SPECIALIST CALCIUM, IONIZED STAT 10/17/2023 10:55 PM TREE SPECIALIST CBC WITH AUTO DIFFERENTIAL STAT 10/17/2023 10:55 PM TREE SPECIALIST POCT GLUCOSE DEVICE Routine 10/17/2023 10:19 PM TREE SPECIALIST POCT GLUCOSE DEVICE Routine 10/17/2023 9:00 PM TREE SPECIALIST POCT GLUCOSE DEVICE Routine 10/17/2023 8:07 PM TREE SPECIALIST POCT GLUCOSE DEVICE Routine 10/17/2023 7:18 PM TREE SPECIALIST TRANSFUSE RED BLOOD CELLS Timed 10/17/2023 7:13 PM TREE SPECIALIST CRITICAL CARE Routine 10/17/2023 6:42 PM TREE SPECIALIST CAD in eek artery PREPARE RBC STAT 10/17/2023 6:34 PM TREE SPECIALIST POTASSIUM LEVEL STAT 10/17/2023 6:14 PM TREE SPECIALIST APTT STAT 10/17/2023 6:12 PM TREE SPECIALIST PROTIME-INR STAT 10/17/2023 6:12 PM TREE SPECIALIST FIBRINOGEN STAT 10/17/2023 6:12 PM TREE SPECIALIST CBC WITHOUT DIFFERENTIAL STAT 10/17/2023 6:12 PM TREE SPECIALIST BLOOD GAS, ARTERIAL STAT 10/17/2023 6:12 PM TREE SPECIALIST POCT GLUCOSE DEVICE Routine 10/17/2023 6:11 PM TREE SPECIALIST TRANSFUSE PLASMA Timed 10/17/2023 5:25 PM TREE SPECIALIST PREPARE PLASMA STAT 10/17/2023 5:09 PM TREE SPECIALIST POCT GLUCOSE DEVICE Routine 10/17/2023 4:50 PM TREE SPECIALIST APTT STAT 10/17/2023 4:32 PM TREE SPECIALIST PROTIME-INR STAT 10/17/2023 4:32 PM TREE SPECIALIST FIBRINOGEN STAT 10/17/2023 4:32 PM TREE SPECIALIST CBC WITHOUT DIFFERENTIAL Routine 10/17/2023 4:32 PM TREE SPECIALIST BLOOD GAS, ARTERIAL STAT 10/17/2023 4:32 PM TREE SPECIALIST POCT GLUCOSE DEVICE Routine 10/17/2023 3:51 PM TREE SPECIALIST TRANSFUSE PLASMA Timed 10/17/2023 3:43 PM TREE SPECIALIST TRANSFUSE RED BLOOD CELLS Timed 10/17/2023 3:38 PM TREE SPECIALIST PREPARE PLASMA STAT 10/17/2023 3:32 PM TREE SPECIALIST PREPARE RBC STAT 10/17/2023 3:32 PM TREE SPECIALIST POCT GLUCOSE DEVICE Routine 10/17/2023 2:34 PM TREE SPECIALIST XR CHEST 1 VIEW ED Urgent/IP Urgent 10/17/2023 1:49 PM TREE SPECIALIST CRITICAL CARE Routine 10/17/2023 1:44 PM TREE SPECIALIST LACTATE STAT 10/17/2023 1:27 PM TREE SPECIALIST EGFR STAT 10/17/2023 1:27 PM TREE SPECIALIST CALCIUM, IONIZED STAT 10/17/2023 1:27 PM TREE SPECIALIST APTT STAT 10/17/2023 1:27 PM TREE SPECIALIST PROTIME-INR STAT 10/17/2023 1:27 PM TREE SPECIALIST FIBRINOGEN STAT 10/17/2023 1:27 PM TREE SPECIALIST CBC WITHOUT DIFFERENTIAL STAT 10/17/2023 1:27 PM TREE SPECIALIST PHOSPHORUS STAT 10/17/2023 1:27 PM TREE SPECIALIST MAGNESIUM STAT 10/17/2023 1:27 PM TREE SPECIALIST BLOOD GAS, ARTERIAL STAT 10/17/2023 1:27 PM TREE SPECIALIST BASIC METABOLIC PANEL STAT 10/17/2023 1:27 PM TREE SPECIALIST POCT GLUCOSE DEVICE Routine 10/17/2023 1:25 PM TREE SPECIALIST POCT ACTIVATED CLOTTING TIME, HIGH RANGE Routine 10/17/2023 12:26 PM TREE SPECIALIST POC BLOOD GAS AND CHEMISTRIES, ARTERIAL Routine 10/17/2023 12:26 PM TREE SPECIALIST TRANSFUSE PLATELETS Timed 10/17/2023 12:24 PM TREE SPECIALIST PREPARE RBC STAT 10/17/2023 12:11 PM TREE SPECIALIST TRANSFUSE RED BLOOD CELLS Timed 10/17/2023 12:09 PM TREE SPECIALIST TRANSFUSE CRYOPRECIPITATE (POOLED UNITS) Timed 10/17/2023 12:05 PM TREE SPECIALIST TRANSFUSE CRYOPRECIPITATE (POOLED UNITS) Timed 10/17/2023 12:04 PM TREE SPECIALIST TRANSFUSE PLASMA Timed 10/17/2023 12:03 PM TREE SPECIALIST TRANSFUSE PLASMA Timed 10/17/2023 12:03 PM TREE SPECIALIST POC BLOOD GAS AND CHEMISTRIES, ARTERIAL Routine 10/17/2023 11:51 AM TREE SPECIALIST POCT ACTIVATED CLOTTING TIME, HIGH RANGE Routine 10/17/2023 11:50 AM TREE SPECIALIST POCT ACTIVATED CLOTTING TIME, HIGH RANGE Routine 10/17/2023 11:22 AM TREE SPECIALIST POC BLOOD GAS AND CHEMISTRIES, ARTERIAL Routine 10/17/2023 11:20 AM TREE SPECIALIST POCT ACTIVATED CLOTTING TIME, HIGH RANGE Routine 10/17/2023 11:05 AM TREE SPECIALIST POCT ACTIVATED CLOTTING TIME, HIGH RANGE Routine 10/17/2023 10:53 AM TREE SPECIALIST POCT ACTIVATED CLOTTING TIME, HIGH RANGE Routine 10/17/2023 10:38 AM TREE SPECIALIST POC BLOOD GAS AND CHEMISTRIES, ARTERIAL Routine 10/17/2023 10:38 AM TREE SPECIALIST POCT ACTIVATED CLOTTING TIME, HIGH RANGE Routine 10/17/2023 10:24 AM TREE SPECIALIST POC BLOOD GAS AND CHEMISTRIES, VENOUS Routine 10/17/2023 10:21 AM TREE SPECIALIST POCT ACTIVATED CLOTTING TIME, HIGH RANGE Routine 10/17/2023 10:12 AM TREE SPECIALIST POC BLOOD GAS AND CHEMISTRIES, ARTERIAL Routine 10/17/2023 10:11 AM TREE SPECIALIST POC BLOOD GAS AND CHEMISTRIES, ARTERIAL Routine 10/17/2023 9:47 AM TREE SPECIALIST POCT ACTIVATED CLOTTING TIME, HIGH RANGE Routine 10/17/2023 9:44 AM TREE SPECIALIST PREPARE PLATELETS STAT 10/17/2023 9:12 AM TREE SPECIALIST PREPARE PLASMA STAT 10/17/2023 9:12 AM TREE SPECIALIST PREPARE CRYOPRECIPITATE (POOLED UNITS) STAT 10/17/2023 9:12 AM TREE SPECIALIST POCT ACTIVATED CLOTTING TIME, HIGH RANGE Routine 10/17/2023 8:19 AM TREE SPECIALIST REPLACEMENT AORTIC VALVE 10/17/2023 8:03 AM TREE SPECIALIST Aortic valve stenosis, etiology of cardiac valve disease unspecified Coronary arteriosclerosis in eek artery CORONARY ARTERY BYPASS GRAFT 10/17/2023 8:03 AM TREE SPECIALIST Aortic valve stenosis, etiology of cardiac valve disease unspecified Coronary arteriosclerosis in eek artery POCT GLUCOSE DEVICE Routine 10/17/2023 7:47 AM TREE SPECIALIST POCT GLUCOSE DEVICE Routine 10/17/2023 5:50 AM TREE SPECIALIST US CAROTIDS DUPLEX BILATERAL IP Routine 10/17/2023 5:10 AM TREE SPECIALIST POCT GLUCOSE DEVICE Routine 10/17/2023 2:29 AM TREE SPECIALIST POCT GLUCOSE DEVICE Routine 10/17/2023 12:51 AM TREE SPECIALIST CONTINUOUS CYCLIC PERITONEAL DIALYSIS (CCPD) Routine 10/17/2023 12:31 AM TREE SPECIALIST DIFFERENTIAL AUTO Routine 10/17/2023 12:29 AM TREE SPECIALIST CBC WITH AUTO DIFFERENTIAL Routine 10/17/2023 12:29 AM TREE SPECIALIST APTT Routine 10/17/2023 12:29 AM TREE SPECIALIST TYPE AND SCREEN STAT 10/16/2023 7:51 PM TREE SPECIALIST POCT GLUCOSE DEVICE Routine 10/16/2023 7:49 PM TREE SPECIALIST POCT GLUCOSE DEVICE Routine 10/16/2023 5:35 PM TREE SPECIALIST TRANSTHORACIC ECHO (TTE) COMPLETE W DOPPLER/CF W CONTRAST Routine 10/16/2023 4:47 PM TREE SPECIALIST APTT Routine 10/16/2023 3:50 PM TREE SPECIALIST LIPID PANEL Routine 10/16/2023 3:44 PM TREE SPECIALIST CONTINUOUS CYCLIC PERITONEAL DIALYSIS (CCPD) Routine 10/16/2023 3:33 PM TREE SPECIALIST HEMOGLOBIN A1C Routine 10/16/2023 3:27 PM TREE SPECIALIST XR CHEST PA LATERAL 2 VIEWS ED Urgent/IP Urgent 10/16/2023 3:12 PM TREE SPECIALIST ECG 12-LEAD Routine 10/16/2023 2:17 PM TREE SPECIALIST PREPARE RBC STAT 10/16/2023 2:04 PM TREE SPECIALIST POCT GLUCOSE DEVICE Routine 10/16/2023 12:22 PM TREE SPECIALIST POCT GLUCOSE DEVICE Routine 10/16/2023 8:11 AM TREE SPECIALIST POCT GLUCOSE DEVICE Routine 10/16/2023 4:48 AM TREE SPECIALIST POCT GLUCOSE DEVICE Routine 10/16/2023 12:37 AM TREE SPECIALIST DIFFERENTIAL AUTO Routine 10/16/2023 12:31 AM TREE SPECIALIST CBC WITH AUTO DIFFERENTIAL Routine 10/16/2023 12:31 AM TREE SPECIALIST APTT Routine 10/16/2023 12:31 AM TREE SPECIALIST B CHECK SAMPLE STAT 10/16/2023 12:27 AM TREE SPECIALIST POCT GLUCOSE DEVICE Routine 10/15/2023 11:20 PM TREE SPECIALIST POCT GLUCOSE DEVICE Routine 10/15/2023 11:01 PM TREE SPECIALIST POCT GLUCOSE DEVICE Routine 10/15/2023 10:45 PM TREE SPECIALIST POCT GLUCOSE DEVICE Routine 10/15/2023 10:26 PM TREE SPECIALIST POCT GLUCOSE DEVICE Routine 10/15/2023 8:12 PM TREE SPECIALIST POCT GLUCOSE DEVICE Routine 10/15/2023 5:10 PM TREE SPECIALIST POCT GLUCOSE DEVICE Routine 10/15/2023 12:13 PM TREE SPECIALIST APTT Routine 10/15/2023 11:[address] CHEST WO CONTRAST IP Routine 10/15/2023 11:00 AM TREE SPECIALIST POCT GLUCOSE DEVICE Routine 10/15/2023 7:56 AM TREE SPECIALIST POCT GLUCOSE DEVICE Routine 10/15/2023 5:34 AM TREE SPECIALIST POCT GLUCOSE DEVICE Routine 10/15/2023 4:35 AM TREE SPECIALIST APTT STAT 10/15/2023 4:27 AM TREE SPECIALIST POCT GLUCOSE DEVICE Routine 10/15/2023 1:30 AM TREE SPECIALIST EGFR Routine 10/15/2023 1:06 AM TREE SPECIALIST DIFFERENTIAL AUTO Routine 10/15/2023 1:06 AM TREE SPECIALIST IRON PROFILE W/ IBC Routine 10/15/2023 1:06 AM TREE SPECIALIST CBC WITH AUTO DIFFERENTIAL Routine 10/15/2023 1:06 AM TREE SPECIALIST APTT Routine 10/15/2023 1:06 AM TREE SPECIALIST FERRITIN Routine 10/15/2023 1:06 AM TREE SPECIALIST RENAL FUNCTION PANEL Routine 10/15/2023 1:06 AM TREE SPECIALIST CONTINUOUS CYCLIC PERITONEAL DIALYSIS (CCPD) Routine 10/15/2023 12:31 AM TREE SPECIALIST APTT Timed 10/14/2023 8:41 PM TREE SPECIALIST POCT GLUCOSE DEVICE Routine 10/14/2023 8:24 PM TREE SPECIALIST POCT GLUCOSE DEVICE Routine 10/14/2023 5:28 PM TREE SPECIALIST CONTINUOUS CYCLIC PERITONEAL DIALYSIS (CCPD) Routine 10/14/2023 3:44 PM TREE SPECIALIST APTT Timed 10/14/2023 2:39 PM TREE SPECIALIST POCT GLUCOSE DEVICE Routine 10/14/2023 12:15 PM TREE SPECIALIST POCT GLUCOSE DEVICE Routine 10/14/2023 11:06 AM TREE SPECIALIST POCT GLUCOSE DEVICE Routine 10/14/2023 8:34 AM TREE SPECIALIST POCT GLUCOSE DEVICE Routine 10/14/2023 5:56 AM TREE SPECIALIST EGFR STAT 10/14/2023 5:53 AM TREE SPECIALIST APTT STAT 10/14/2023 5:53 AM TREE SPECIALIST BASIC METABOLIC PANEL STAT 10/14/2023 5:53 AM TREE SPECIALIST POCT GLUCOSE DEVICE Routine 10/14/2023 3:58 AM TREE SPECIALIST POCT GLUCOSE DEVICE Routine 10/14/2023 3:04 AM TREE SPECIALIST POCT GLUCOSE DEVICE Routine 10/14/2023 2:05 AM TREE SPECIALIST EGFR STAT 10/14/2023 1:04 AM TREE SPECIALIST DIFFERENTIAL AUTO STAT 10/14/2023 1:04 AM TREE SPECIALIST CBC WITH AUTO DIFFERENTIAL STAT 10/14/2023 1:04 AM TREE SPECIALIST APTT STAT 10/14/2023 1:04 AM TREE SPECIALIST PROTIME-INR STAT 10/14/2023 1:04 AM TREE SPECIALIST COMPREHENSIVE METABOLIC PANEL STAT 10/14/2023 1:04 AM TREE SPECIALIST POCT GLUCOSE DEVICE Routine 10/13/2023 11:25 PM TREE SPECIALIST documented in this encounter Results * (ABNORMAL) [...] POCT ORDERABLES - APRIL CE Final Result [facility] [address] Department [place] [address] * (ABNORMAL) Protime-INR (11/03/2023 11:43 AM CDT) PT 21.9(H) 10.3 - 13.7 sec INR 1.92(H) 0.90 - 1.20 [facility] Comment: Interpretive data Oral anticoagulant [...] ORDERABLES Final R esult Performing Organization Address [facility] Co de Phone Number [facility] [address] [facility] [employer] [place] [address] * (ABNORMAL) aPTT (11/03/2023 11:43 [...] BLOOD ORDERABLES Final Result Performing Organization Address [facility] Co de Phone Number [facility] [address] Department [employer] [place], [place] [id number] * (ABNORMAL) POCT glucose (11/03/2023 11:38 AM [...] APRIL CE Final Result Performing Organization Address [facility] Co de Phone Number [facility] [address] [facility] [employer] [place], [place] [id number] * (ABNORMAL) POCT glucose (11/03/2023 8:05 AM [...] ORDERABLES - APRIL CE Final Result [facility] [address] Department [place] [address] * eGFR (11/03/2023 4:41 AM CDT) eGFR [...] CDT 11/03/2023 4:41 AM CDT Byron Olvera CLOTH PAINTER LAB BLOOD ORDERABLES Fi nal Result Performing Organization Address [facility] Co de Phone Number [facility] [address] [facility] [place] [employer] [place] [address] * (ABNORMAL) aPTT (11/03/2023 4:41 AM CDT) [...] BLOOD ORDERABLES Final Result Performing Organization Address [facility] Co de Phone Number [facility] [address] [facility] [place] [place] [address] * (ABNORMAL) Protime-INR (11/03/2023 4:41 AM CDT) PT 19.8(H) 10.3 - 13.7 sec INR 1.74(H) 0.90 - 1.20 [facility] Comment: Interpretive data Oral anticoagulant therapeutic ranges: Venous thromboembolism prophylaxis or treatment: 2.0-3.0 CARDIOLOGY Standard range: 2.0-3.0 High-intensity range: 2.5-3.5 Refer to indication-specific guidelines for appropriate target ranges for prosthetic heart valve replacement. Current interpretive data was last revised on 2019. Blood 11/03/2023 4:41 AM CDT 11/03/2023 4:41 AM CDT Byron Olvera NP LAB BLOOD ORDERABLES Fi nal Result Performing Organization Address [facility] Co de Phone Number [facility] [address] [facility] [place] [employer] [place] [address] * Magnesium (11/03/2023 4:41 AM CDT) Magnesium 2.4 1.4 - 2.5 mg/dL Blood 11/03/2023 4:41 AM CDT 11/03/2023 4:41 AM CDT Byron Olvera CLOTH PAINTER LAB BLOOD ORDERABLES nal Result [facility] [address] Department [place] [address] * (ABNORMAL) Renal function panel (11/03/2023 4:41 AM CDT) Pathologist [facility] Sodium 132(L) 135 - 145 mmol/L Potassium, pl 3.7 3.3 - 4.9 mmol/L [facility] Chloride 92(L) 97 - 110 mmol/L [facility] CO2 27 22 - 32 mmol/L [facility] Anion gap 13 2 - 15 mmol/L [facility] BUN 79(H) 6 - 25 mg/dL [facility] Creatinine 8.23(H) 0.80 - 1.30 mg/dL [facility] Glucose 252(H) 70 - 199 mg/dL [facility] Comment: Interpretive Data Fasting glucose >/= [...] 2022. Calcium 8.9 8.5 - 10.3 mg/dL [facility] Phosphorus, pl 4.2 2.3 - 4.5 mg/dL [facility] Albumin 2.9(L) 3.5 - 5.0 g/dL [facility] Blood 11/03/2023 4:41 AM CDT 11/03/2023 4:41 AM CDT Byron Olvera NP LAB BLOOD ORDERABLES Fi nal Result Performing Organization Address [facility] Co de Phone Number [facility] [address] Department [employer] [place] [address] * (ABNORMAL) CBC without differential (11/03/2023 4:41 AM CDT) [facility] WBC 4.8 3.8 - 9.9 K/cumm Hgb 7.6(L) 13.0 - 17.5 g/dL [facility] Hct 24.4(L) 38.9 - 50.3 % [facility] Plt 389 150 - 400 K/cumm [facility] MPV 9.2 9.1 - 12.3 fL [facility] RBC 2.61(L) 4.30 - 5.80 M/cumm [facility] MCV 93.5 81.3 - 96.4 fL [facility] MCH 29.1 27.1 - 33.3 pg [facility] MCHC 31.1(L) 32.3 - 35.7 g/dL [facility] RDW CV 14.6 11.1 - 14.9 % [facility] RDW SD 50.1(H) 35.7 - 48.1 fL [facility] NRBC abs 0.00 0.00 - 0.01 K/cumm [facility] Blood 11/03/2023 4:41 AM CDT 11/03/2023 4:41 AM CDT Byron Olvera NP LAB BLOOD ORDERABLES Fi nal Result Performing Organization Address City/[facility]/ZIP Co de Phone Number [facility] [address] Department [employer] [place], [place] [id number] * aPTT (11/02/2023 8:38 PM CDT) Pathologist [facility] aPTT 38 28 - 38 sec Comment: Interpretive Data Heparin therapeutic range: 66.0 - 100.0 seconds. Range based on correlation with therapeutic heparin activity range of 0.3 - 0.7 Units/mL. Current interpretive data was last revised on 2023. Blood 11/02/2023 8:38 PM CDT 11/02/2023 8:38 PM CDT Nona GRACE LAB BLOOD ORDERABLES Fin al Result Performing Organization Address [facility] Co de Phone Number [facility] [address] [place] [address] * (ABNORMAL) POCT glucose (11/02/2023 8:22 PM [...] Final Result Performing Organization Address [facility] de Phone Number [facility] [address] [place] [employer] [place] [address] * (ABNORMAL) POCT glucose (11/02/2023 5:22 PM [...] APRIL CE Final Result Performing Organization Address [facility]/ZIP Co de Phone Number [facility] [address] Department [employer] [place] [address] * aPTT (11/02/2023 1:17 PM CDT) aPTT 36 28 - 38 sec Comment: Interpretive Data Heparin therapeutic range: 66.0 - 100.0 seconds. Range based on correlation with therapeutic heparin activity range of 0.3 - 0.7 Units/mL. Current interpretive data was last revised on 2023. Blood 11/02/2023 1:17 PM CDT 11/02/2023 1:33 PM CDT Narrative [facility] - 11/02/2023 1:50 PM CDT Baseline prior to heparin initiation Nona GRACE LAB BLOOD ORDERABLES Fin al Result Performing Organization Address [facility] Center/[facility] Co de Phone Number [facility] [address] Department [employer] [place] [address] * (ABNORMAL) POCT glucose (11/02/2023 12:27 PM [...] APRIL CE Final Result Performing Organization Address [facility] Co de Phone Number [facility] [address] Department [employer] [place], [place] [id number] * (ABNORMAL) POCT glucose (11/02/2023 8:15 AM [...] ORDERABLES - APRIL CE Final Result [facility] [address] [place] [address] * eGFR (11/02/2023 2:16 AM CDT) eGFR [...] CDT 11/02/2023 2:37 AM CDT Byron Olvera CLOTH PAINTER LAB BLOOD ORDERABLES Fi nal Result [facility] [address] [facility] [employer] [place] [address] * (ABNORMAL) Protime-INR (11/02/2023 2:16 AM CDT) PT 19.1(H) 10.3 - 13.7 sec INR 1.68(H) 0.90 - 1.20 [facility] Comment: Interpretive data Oral anticoagulant therapeutic ranges: Venous thromboembolism prophylaxis or treatment: 2.0-3.0 CARDIOLOGY Standard range: 2.0-3.0 High-intensity range: 2.5-3.5 Refer to indication-specific guidelines for appropriate target ranges for prosthetic heart valve replacement. Current interpretive data was last revised on 2019. Blood 11/02/2023 2:16 AM CDT 11/02/2023 2:37 AM CDT Byron Olvera CLOTH PAINTER LAB BLOOD ORDERABLES Fi nal Result [facility] [address] [employer] [place], [place] [id number] * Magnesium (11/02/2023 2:16 AM CDT) Pathologist [facility] Magnesium 2.4 1.4 - 2.5 mg/dL Blood 11/02/2023 2:16 AM CDT 11/02/2023 2:37 AM CDT Byron Olvera CLOTH PAINTER LAB BLOOD ORDERABLES Fi nal Result [facility] [address] [facility] [employer] [place] [address] * (ABNORMAL) Renal function panel (11/02/2023 2:16 AM CDT) Pathologist [facility] Sodium 128(L) 135 - 145 mmol/L Potassium, pl 3.9 3.3 - 4.9 mmol/L [facility] Chloride 89(L) 97 - 110 mmol/L [facility] CO2 25 22 - 32 mmol/L [facility] Anion gap 14 2 - 15 mmol/L [facility] BUN 86(H) 6 - 25 mg/dL [facility] Creatinine 8.74(H) 0.80 - 1.30 mg/dL [facility] Glucose 353(H) 70 - 199 mg/dL [facility] Comment: Interpretive Data Fasting glucose >/= [...] 2022. Calcium 9.3 8.5 - 10.3 mg/dL [facility] Phosphorus, pl 3.7 2.3 - 4.5 mg/dL [facility] Albumin 2.7(L) 3.5 - 5.0 g/dL [facility] Blood 11/02/2023 2:16 AM CDT 11/02/2023 2:37 AM CDT Byron Olvera NP LAB BLOOD ORDERABLES Fi nal Result [facility] [address] Department [place] [address] * (ABNORMAL) CBC without differential (11/02/2023 2:16 AM CDT) [facility] WBC 5.0 3.8 - 9.9 K/cumm Hgb 7.5(L) 13.0 - 17.5 g/dL [facility] Hct 24.5(L) 38.9 - 50.3 % [facility] Plt 391 150 - 400 K/cumm [facility] MPV 9.3 9.1 - 12.3 fL [facility] RBC 2.60(L) 4.30 - 5.80 M/cumm [facility] MCV 94.2 81.3 - 96.4 fL [facility] MCH 28.8 27.1 - 33.3 pg [facility] MCHC 30.6(L) 32.3 - 35.7 g/dL [facility] RDW CV 14.6 11.1 - 14.9 % [facility] RDW SD 50.4(H) 35.7 - 48.1 fL [facility] NRBC abs 0.00 0.00 - 0.01 K/cumm [facility] Blood 11/02/2023 2:16 AM CDT 11/02/2023 2:37 AM CDT Byron Olvera NP LAB BLOOD ORDERABLES Fi nal Result Performing Organization Address [facility]/ZIP Co de Phone Number [facility] [address] [email or web address] [place], [place] [phone] * (ABNORMAL) POCT glucose (11/02/2023 2:06 AM [...] APRIL CE Final Result Performing Organization Address City/[facility]/ZIP Co de Phone Number [facility] [address] Department [employer] [place], [place] [phone] * (ABNORMAL) POCT glucose (11/01/2023 8:25 PM [...] Final Result Performing Organization Address [facility] de Phone Number [facility] [address] [facility] [employer] [place] [address] * (ABNORMAL) POCT glucose (11/01/2023 5:17 PM [...] Final Result Performing Organization Address [facility] de Phone Number [facility] [address] [facility] [place] [employer] [place] [address] * (ABNORMAL) POCT glucose (11/01/2023 12:01 PM [...] APRIL CE Final Result Performing Organization Address [facility] de Phone Number [facility] [address] Department [place] [address] * (ABNORMAL) POCT glucose (11/01/2023 8:27 AM [...] ORDERABLES - APRIL CE Final Result [facility] [address] Department [place] [address] * eGFR (11/01/2023 2:09 AM CDT) [facility] eGFR 6 mL/min/1. 73 m2 [...] ORDERABLES Fi nal Result Performing Organization Address [facility] Co de Phone Number [facility] [address] [place] [employer] [place] [address] * (ABNORMAL) Protime-INR (11/01/2023 2:09 AM CDT) PT 20.6(H) 10.3 - 13.7 sec INR 1.81(H) 0.90 - 1.20 [facility] Comment: Interpretive data Oral anticoagulant therapeutic ranges: Venous thromboembolism prophylaxis or treatment: 2.0-3.0 CARDIOLOGY Standard range: 2.0-3.0 High-intensity range: 2.5-3.5 Refer to indication-specific guidelines for appropriate target ranges for prosthetic heart valve replacement. Current interpretive data was last revised on 2019. Blood 11/01/2023 2:09 AM CDT 11/01/2023 2:21 AM CDT Byron Olvera NP LAB BLOOD ORDERABLES Fi nal Result Performing Organization Address [facility] Co de Phone Number [facility] [address] [email or web address] [address] * Magnesium (11/01/2023 2:09 AM CDT) Magnesium 2.5 1.4 - 2.5 mg/dL Blood 11/01/2023 2:09 AM CDT 11/01/2023 2:21 AM CDT Byron Olvera CLOTH PAINTER LAB BLOOD ORDERABLES Fi nal Result Performing Organization Address [facility]/State/ZIP Co de Phone Number [facility] [address] Department [place] [address] * (ABNORMAL) Renal function panel (11/01/2023 2:09 AM CDT) Sodium 131(L) 135 - 145 mmol/L Potassium, pl 4.0 3.3 - 4.9 mmol/L [facility] Chloride 91(L) 97 - 110 mmol/L [facility] CO2 25 22 - 32 mmol/L [facility] Anion gap 15 2 - 15 mmol/L [facility] BUN 89(H) 6 - 25 mg/dL [facility] Creatinine 8.97(H) 0.80 - 1.30 mg/dL [facility] Glucose 302(H) 70 - 199 mg/dL [facility] Comment: Interpretive Data Fasting glucose >/= [...] 2022. Calcium 9.1 8.5 - 10.3 mg/dL [facility] Phosphorus, pl 4.1 2.3 - 4.5 mg/dL [facility] Albumin 2.9(L) 3.5 - 5.0 g/dL [facility] Blood 11/01/2023 2:09 AM CDT 11/01/2023 2:21 AM CDT Byron Olvera NP LAB BLOOD ORDERABLES Fi nal Result [facility] [address] Department [place] [address] * (ABNORMAL) CBC without differential (11/01/2023 2:09 AM CDT) [facility] WBC 5.9 3.8 - 9.9 K/cumm Hgb 7.7(L) 13.0 - 17.5 g/dL [facility] Hct 25.0(L) 38.9 - 50.3 % [facility] Plt 381 150 - 400 K/cumm [facility] MPV 9.2 9.1 - 12.3 fL [facility] RBC 2.65(L) 4.30 - 5.80 M/cumm [facility] MCV 94.3 81.3 - 96.4 fL [facility] MCH 29.1 27.1 - 33.3 pg [facility] MCHC 30.8(L) 32.3 - 35.7 g/dL [facility] RDW CV 14.8 11.1 - 14.9 % [facility] RDW SD 50.6(H) 35.7 - 48.1 fL [facility] NRBC abs 0.00 0.00 - 0.01 K/cumm [facility] Blood 11/01/2023 2:09 AM CDT 11/01/2023 2:21 AM CDT us Byron Olvera CLOTH PAINTER LAB BLOOD ORDERABLES Fi nal Result Performing Organization Address City/[facility]/ZIP Co de Phone Number [facility] [address] [email or web address] [place], [place] [phone] * Vancomycin level random (11/01/2023 2:09 AM CDT) [facility] Vancomycin random 17.3 mcg/mL Comment: Interpretive Data No reference ranges have been established for random drug levels. Current Interpretive Data was last revised on 2020. Blood 11/01/2023 2:09 AM CDT 11/01/2023 2:21 AM CDT Guerline Rodriguez PA LAB BLOOD ORDERABLES Final R esult [facility] [address] Department [employer] [place], [place] [phone] * (ABNORMAL) POCT glucose (11/01/2023 2:05 AM [...] APRIL CE Final Result Performing Organization Address [facility] de Phone Number [facility] [address] [facility] [place] [employer] [place] [address] * (ABNORMAL) POCT glucose (10/31/2023 9:21 PM [...] APRIL CE Final Result Performing Organization Address [facility] de Phone Number [facility] [address] [facility] [place] [employer] [place] [address] * (ABNORMAL) POCT glucose (10/31/2023 5:12 PM [...] APRIL CE Final Result Performing Organization Address [facility] Co de Phone Number [facility] [address] [facility] [place] [employer] [place] [address] * (ABNORMAL) POCT glucose (10/31/2023 12:02 PM [...] APRIL CE Final Result Performing Organization Address [facility] Co de Phone Number [facility] [address] [facility] [place] [employer] [place] [address] * (ABNORMAL) POCT glucose (10/31/2023 12:01 PM [...] APRIL CE Final Result Performing Organization Address [facility] Co de Phone Number [facility] [address] [place] [employer] [place] [address] * (ABNORMAL) POCT glucose (10/31/2023 8:06 AM CDT) [facility] Glucose, POC 338(H) 70 - 140 mg/dL Comment: For Glucose values <35 mg/dl when Hematocrit is >60 mg/dl,the test may not accurately detect significant hypoglycemia,and testing in the Laboratory should be considered if clinically indicated. Blood 10/31/2023 8:06 AM CDT 10/31/2023 8:06 AM CDT us Jaqueline Valero MD LAB POCT ORDERABLES - APRIL CE Final Result [facility] [address] Department [place] [address] * eGFR (10/31/2023 2:25 AM CDT) [facility] eGFR 6 mL/min/1. 73 m2 [...] CDT 10/31/2023 2:35 AM CDT Byron Olvera CLOTH PAINTER LAB BLOOD ORDERABLES Fi nal Result Performing Organization Address City/[facility] Co de Phone Number [facility] [address] [facility] [place] [employer] [place] [address] * (ABNORMAL) Protime-INR (10/31/2023 2:25 AM CDT) PT 20.6(H) 10.3 - 13.7 sec INR 1.81(H) 0.90 - 1.20 [facility] Comment: Interpretive data Oral anticoagulant therapeutic ranges: Venous thromboembolism prophylaxis or treatment: 2.0-3.0 CARDIOLOGY Standard range: 2.0-3.0 High-intensity range: 2.5-3.5 Refer to indication-specific guidelines for appropriate target ranges for prosthetic heart valve replacement. Current interpretive data was last revised on 2019. Blood 10/31/2023 2:25 AM CDT 10/31/2023 2:34 AM CDT Byron Olvera CLOTH PAINTER LAB BLOOD ORDERABLES Fi nal Result Performing Organization Address [facility] Co de Phone Number [facility] [address] [facility] [place] [employer] [place] [address] * Magnesium (10/31/2023 2:25 AM CDT) Pathologist [facility] Magnesium 2.5 1.4 - 2.5 mg/dL Blood 10/31/2023 2:25 AM CDT 10/31/2023 2:35 AM CDT Byron Olvera CLOTH PAINTER LAB BLOOD ORDERABLES Fi nal Result Performing Organization Address [facility] Co de Phone Number [facility] [address] [place] [employer] [place] [address] * (ABNORMAL) Renal function panel (10/31/2023 2:25 AM CDT) [facility] Sodium 131(L) 135 - 145 mmol/L Potassium, pl 4.0 3.3 - 4.9 mmol/L [facility] Chloride 91(L) 97 - 110 mmol/L [facility] CO2 24 22 - 32 mmol/L [facility] Anion gap 16(H) 2 - 15 mmol/L [facility] BUN 90(H) 6 - 25 mg/dL [facility] Creatinine 9.34(H) 0.80 - 1.30 mg/dL [facility] Glucose 275(H) 70 - 199 mg/dL [facility] Comment: Interpretive Data Fasting glucose >/= [...] 2022. Calcium 9.5 8.5 - 10.3 mg/dL [facility] Phosphorus, pl 4.8(H) 2.3 - 4.5 mg/dL [facility] Albumin 2.7(L) 3.5 - 5.0 g/dL [facility] Blood 10/31/2023 2:25 AM CDT 10/31/2023 2:35 AM CDT Byron Olvera NP LAB BLOOD ORDERABLES Fi nal Result [facility] [address] Department [place] [address] * (ABNORMAL) CBC without differential (10/31/2023 2:25 AM CDT) [facility] WBC 6.6 3.8 - 9.9 K/cumm Hgb 7.9(L) 13.0 - 17.5 g/dL [facility] Hct 25.5(L) 38.9 - 50.3 % [facility] Plt 366 150 - 400 K/cumm [facility] MPV 9.3 9.1 - 12.3 fL [facility] RBC 2.70(L) 4.30 - 5.80 M/cumm [facility] MCV 94.4 81.3 - 96.4 fL [facility] MCH 29.3 27.1 - 33.3 pg [facility] MCHC 31.0(L) 32.3 - 35.7 g/dL [facility] RDW CV 15.1(H) 11.1 - 14.9 % [facility] RDW SD 52.3(H) 35.7 - 48.1 fL [facility] NRBC abs 0.00 0.00 - 0.01 K/cumm [facility] Blood 10/31/2023 2:25 AM CDT 10/31/2023 2:34 AM CDT us Byron Olvera NP LAB BLOOD ORDERABLES Fi nal Result Performing Organization Address City/[facility]/ZIP Co de Phone Number [facility] [address] [email or web address] [address] * (ABNORMAL) POCT glucose (10/30/2023 9:39 PM CDT) [facility] Glucose, POC 238(H) 70 - 140 mg/dL Comment: For Glucose values <35 mg/dl when Hematocrit is >60 mg/dl,the test may not accurately detect significant hypoglycemia,and testing in the Laboratory should be considered if clinically indicated. Blood 10/30/2023 9:39 PM CDT 10/30/2023 9:39 PM CDT Jaqueline Valero MD LAB POCT ORDERABLES - APRIL CE Final Result [facility] [address] Department [employer] [address] * (ABNORMAL) POCT glucose (10/30/2023 5:31 PM [...] APRIL CE Final Result Performing Organization Address [facility] de Phone Number [facility] [address] [facility] [place] [employer] [place] [address] * (ABNORMAL) POCT glucose (10/30/2023 12:17 PM CDT) Glucose, POC 230(H) 70 - 140 mg/dL Comment: For Glucose values <35 mg/dl when Hematocrit is >60 mg/dl,the test may not accurately detect significant hypoglycemia,and testing in the Laboratory should be considered if clinically indicated. Blood 10/30/2023 12:1 7 PM CDT 10/30/2023 12:17 PM CDT Result [facility] Jaqueline Valero MD LAB POCT ORDERABLES - APRIL CE Final Result Performing Organization Address [facility] Co de Phone Number [facility] [address] [facility] [place] [employer] [place] [address] * (ABNORMAL) POCT glucose (10/30/2023 6:20 AM [...] APRIL CE Final Result Performing Organization Address City/[facility]/ZIP Co de Phone Number [facility] [address] [email or web address] [place], [place] [phone] * eGFR (10/30/2023 4:18 AM CDT) eGFR [...] 10/30/2023 4:45 AM CDT us Byron Olvera CLOTH PAINTER LAB BLOOD ORDERABLES Fi nal Result [facility] [address] Department [employer] [place], [place] [phone] * (ABNORMAL) Protime-INR (10/30/2023 4:18 AM CDT) [facility] PT 22.8(H) 10.3 - 13.7 sec INR 2.00(H) 0.90 - 1.20 [facility] Comment: Interpretive data Oral anticoagulant therapeutic ranges: Venous thromboembolism prophylaxis or treatment: 2.0-3.0 CARDIOLOGY Standard range: 2.0-3.0 High-intensity range: 2.5-3.5 Refer to indication-specific guidelines for appropriate target ranges for prosthetic heart valve replacement. Current interpretive data was last revised on 2019. Blood 10/30/2023 4:18 AM CDT 10/30/2023 4:46 AM CDT Byron Olvera CLOTH PAINTER LAB BLOOD ORDERABLES Fi nal Result Performing Organization Address [facility] Co de Phone Number [facility] [address] [facility] [employer] [place] [address] * Magnesium (10/30/2023 4:18 AM CDT) [facility] Magnesium 2.4 1.4 - 2.5 mg/dL Blood 10/30/2023 4:18 AM CDT 10/30/2023 4:45 AM CDT Byron Olvera NP LAB BLOOD ORDERABLES Fi nal Result Performing Organization Address City/[facility] Co de Phone Number [facility] [address] [facility] [place] [employer] [place] [address] * (ABNORMAL) Renal function panel (10/30/2023 4:18 AM CDT) [facility] Sodium 132(L) 135 - 145 mmol/L Potassium, pl 4.0 3.3 - 4.9 mmol/L [facility] Chloride 89(L) 97 - 110 mmol/L [facility] CO2 25 22 - 32 mmol/L [facility] Anion gap 18(H) 2 - 15 mmol/L [facility] BUN 93(H) 6 - 25 mg/dL [facility] Creatinine 9.55(H) 0.80 - 1.30 mg/dL [facility] Glucose 292(H) 70 - 199 mg/dL [facility] Comment: Interpretive Data Fasting glucose >/= [...] 2022. Calcium 9.3 8.5 - 10.3 mg/dL [facility] Phosphorus, pl 5.4(H) 2.3 - 4.5 mg/dL [facility] Albumin 2.7(L) 3.5 - 5.0 g/dL [facility] Blood 10/30/2023 4:18 AM CDT 10/30/2023 4:45 AM CDT us Byron Olvera NP LAB BLOOD ORDERABLES nal Result [facility] [address] Department [place] [address] * (ABNORMAL) CBC without differential (10/30/2023 4:18 AM CDT) WBC 6.5 3.8 - 9.9 K/cumm Hgb 7.6(L) 13.0 - 17.5 g/dL [facility] Hct 24.3(L) 38.9 - 50.3 % [facility] Plt 317 150 - 400 K/cumm [facility] MPV 9.8 9.1 - 12.3 fL [facility] RBC 2.59(L) 4.30 - 5.80 M/cumm [facility] MCV 93.8 81.3 - 96.4 fL [facility] MCH 29.3 27.1 - 33.3 pg [facility] MCHC 31.3(L) 32.3 - 35.7 g/dL [facility] RDW CV 15.1(H) 11.1 - 14.9 % [facility] RDW SD 52.2(H) 35.7 - 48.1 fL [facility] NRBC abs 0.00 0.00 - 0.01 K/cumm [facility] Blood 10/30/2023 4:18 AM CDT 10/30/2023 4:45 AM CDT us Byron Olvera CLOTH PAINTER LAB BLOOD ORDERABLES Fi nal Result Performing Organization Address City/[facility]/ZIP Co de Phone Number [facility] [address] Department [employer] [place], [place] [phone] * (ABNORMAL) POCT glucose (10/29/2023 9:59 PM [...] APRIL CE Final Result Performing Organization Address City/[facility]/ZIP Co de Phone Number [facility] [address] Department [employer] [place] [place] [address] * (ABNORMAL) POCT glucose (10/29/2023 5:41 PM [...] ORDERABLES - APRIL CE Final Result [facility] [address] Department [place] [address] * US Vein Duplex Lower Extremity Bilateral [...] ORDERABLES - APRIL CE Final Result [facility] [address] [place] [address] * (ABNORMAL) POCT glucose (10/29/2023 [...] APRIL CE Final Result Performing Organization Address [facility] Co de Phone Number [facility] [address] Department [place] [address] * eGFR (10/29/2023 4:04 AM CDT) Pathologist [facility] eGFR [...] ORDERABLES Fi nal Result Performing Organization Address City/[facility]/ZIP Co de Phone Number [facility] [address] [place] [employer] [place] [address] * (ABNORMAL) Protime-INR (10/29/2023 4:04 AM CDT) [facility] PT 26.9(H) 10.3 - 13.7 sec INR 2.36(H) 0.90 - 1.20 [facility] Comment: Interpretive data Oral anticoagulant therapeutic ranges: Venous thromboembolism prophylaxis or treatment: 2.0-3.0 CARDIOLOGY Standard range: 2.0-3.0 High-intensity range: 2.5-3.5 Refer to indication-specific guidelines for appropriate target ranges for prosthetic heart valve replacement. Current interpretive data was last revised on 2019. Blood 10/29/2023 4:04 AM CDT 10/29/2023 4:11 AM CDT Byron Olvera NP LAB BLOOD ORDERABLES Fi nal Result Performing Organization Address [facility] Co de Phone Number [facility] [address] [facility] [place] [employer] [place] [address] * Magnesium (10/29/2023 4:04 AM CDT) [facility] Magnesium 2.4 1.4 - 2.5 mg/dL Blood 10/29/2023 4:04 AM CDT 10/29/2023 4:10 AM CDT Byron Olvera NP LAB BLOOD ORDERABLES Fi nal Result Performing Organization Address [facility] Co de Phone Number [facility] [address] [facility] [place] [place] [address] * (ABNORMAL) Renal function panel (10/29/2023 4:04 AM CDT) [facility] Sodium 129(L) 135 - 145 mmol/L Potassium, pl 4.1 3.3 - 4.9 mmol/L [facility] Chloride 87(L) 97 - 110 mmol/L [facility] CO2 23 22 - 32 mmol/L [facility] Anion gap 19(H) 2 - 15 mmol/L [facility] BUN 85(H) 6 - 25 mg/dL [facility] Creatinine 9.66(H) 0.80 - 1.30 mg/dL [facility] Glucose 297(H) 70 - 199 mg/dL [facility] Comment: Interpretive Data Fasting glucose >/= [...] 2022. Calcium 9.5 8.5 - 10.3 mg/dL [facility] Phosphorus, pl 5.8(H) 2.3 - 4.5 mg/dL [facility] Albumin 2.9(L) 3.5 - 5.0 g/dL [facility] Blood 10/29/2023 4:04 AM CDT 10/29/2023 4:10 AM CDT us Byron Olvera NP LAB BLOOD ORDERABLES Fi nal Result [facility] [address] Department [place] [address] * (ABNORMAL) CBC without differential (10/29/2023 4:04 AM CDT) WBC 7.0 3.8 - 9.9 K/cumm Hgb 7.9(L) 13.0 - 17.5 g/dL [facility] Hct 25.2(L) 38.9 - 50.3 % [facility] Plt 291 150 - 400 K/cumm [facility] MPV 10.0 9.1 - 12.3 fL [facility] RBC 2.70(L) 4.30 - 5.80 M/cumm [facility] MCV 93.3 81.3 - 96.4 fL [facility] MCH 29.3 27.1 - 33.3 pg [facility] MCHC 31.3(L) 32.3 - 35.7 g/dL [facility] RDW CV 15.4(H) 11.1 - 14.9 % [facility] RDW SD 52.0(H) 35.7 - 48.1 fL [facility] NRBC abs 0.00 0.00 - 0.01 K/cumm [facility] Blood 10/29/2023 4:04 AM CDT 10/29/2023 4:11 AM CDT Byron Olvera NP LAB BLOOD ORDERABLES Fi nal Result Performing Organization Address [facility] Co de Phone Number [facility] [address] [email or web address] [address] * (ABNORMAL) POCT glucose (10/28/2023 8:22 PM TREE SPECIALIST) Glucose, POC 195(H) 70 - 140 mg/dL Comment: For Glucose values <35 mg/dl when Hematocrit is >60 mg/dl,the test may not accurately detect significant hypoglycemia,and testing in the Laboratory should be considered if clinically indicated. Blood 10/28/2023 8:22 PM TREE SPECIALIST 10/28/2023 8:22 PM TREE SPECIALIST Jaqueline Valero MD LAB POCT ORDERABLES - APRIL CE Final Result Performing Organization Address City/[facility]/ZIP Co de Phone Number [facility] [address] [email or web address] [place], [place] [id number] * (ABNORMAL) POCT glucose (10/28/2023 5:24 PM TREE SPECIALIST) Glucose, POC 222(H) 70 - 140 mg/dL Comment: For Glucose values <35 mg/dl when Hematocrit is >60 mg/dl,the test may not accurately detect significant hypoglycemia,and testing in the Laboratory should be considered if clinically indicated. Blood 10/28/2023 5:24 PM TREE SPECIALIST 10/28/2023 5:24 PM TREE SPECIALIST Jaqueline Valero MD LAB POCT ORDERABLES - APRIL CE Final Result Performing Organization Address [facility] Co de Phone Number [facility] [address] [facility] [place] [place] [address] * (ABNORMAL) POCT glucose (10/28/2023 12:45 PM TREE SPECIALIST) Glucose, POC 201(H) 70 - 140 mg/dL Comment: For Glucose values <35 mg/dl when Hematocrit is >60 mg/dl,the test may not accurately detect significant hypoglycemia,and testing in the Laboratory should be considered if clinically indicated. Blood 10/28/2023 12:4 5 PM TREE SPECIALIST 10/28/2023 12:45 PM TREE SPECIALIST Jaqueline Valero MD LAB POCT ORDERABLES - APRIL CE Final Result Performing Organization Address [facility] de Phone Number [facility] [address] [facility] [place] [place] [address] * POCT glucose (10/28/2023 8:04 AM TREE SPECIALIST) Glucose, POC 101 70 - 140 mg/dL Comment: For Glucose values <35 mg/dl when Hematocrit is >60 mg/dl,the test may not accurately detect significant hypoglycemia,and testing in the Laboratory should be considered if clinically indicated. Blood 10/28/2023 8:04 AM TREE SPECIALIST 10/28/2023 8:04 AM TREE SPECIALIST Jaqueline Valero MD LAB POCT ORDERABLES - APRIL CE Final Result Performing Organization Address [facility] Co de Phone Number [facility] [address] [facility] [place] [employer] [place] [address] * XR Chest 1 View - Portable - in AM (10/28/2023 6:00 AM TREE SPECIALIST) Anatomical Region Laterality Modality Body, Chest N/A Computed Radiogr aphy 10/28/2023 8:40 AM TREE SPECIALIST Impressions 10/28/2023 8:40 AM TREE SPECIALIST Comparison made to radiograph 10/27/2023. Right internal jugular approach central venous catheter tip overlying the superior vena cava. ??Median sternotomy wires and plates in similar alignment. Likely small bilateral pleural effusions with fluid along the right minor fissure. ??There is mild bibasilar atelectasis. ??No pneumothorax. ??Cardiomediastinal silhouette is stably enlarged. Electronically signed by: Trace Barrow M.D. Narrative 10/28/2023 8:40 AM TREE SPECIALIST EXAMINATION: XR CHEST 1 VIEW Procedure Note [...] signed by: Trace Barrow M.D. Byron Olvera CLOTH PAINTER IMG XR PROCEDURES Final Result * eGFR (10/28/2023 12:34 AM TREE SPECIALIST) eGFR 6 mL/min/1. 73 m2 Comment: Interpretive [...] reviewed 2021. Blood 10/28/2023 12:3 4 AM TREE SPECIALIST 10/28/2023 1:02 AM TREE SPECIALIST us Byron Olvera NP LAB BLOOD ORDERABLES Fi nal Result Performing Organization Address [facility] Co de Phone Number [facility] [address] Department of [employer] [place], [place] [id number] * (ABNORMAL) aPTT (10/28/2023 12:34 AM TREE SPECIALIST) aPTT 102(H) 28 - 38 sec Comment: Interpretive Data Heparin therapeutic range: 66.0 - 100.0 seconds. Range based on correlation with therapeutic heparin activity range of 0.3 - 0.7 Units/mL. Current interpretive data was last revised on 2023. Blood 10/28/2023 12:3 4 AM TREE SPECIALIST 10/28/2023 1:02 AM TREE SPECIALIST Narrative [facility] - 10/28/2023 1:15 AM TREE SPECIALIST While on heparin Jaqueline Valero MD LAB BLOOD ORDERABLES Final Result Performing Organization Address [facility] Co de Phone Number [facility] [address] Department of [employer] [place], [place] [id number] * (ABNORMAL) Protime-INR (10/28/2023 12:34 AM TREE SPECIALIST) PT 30.1(H) 10.3 - 13.7 sec INR 2.64(H) 0.90 - 1.20 [facility] Comment: Interpretive data Oral anticoagulant therapeutic ranges: Venous thromboembolism prophylaxis or treatment: 2.0-3.0 CARDIOLOGY Standard range: 2.0-3.0 High-intensity range: 2.5-3.5 Refer to indication-specific guidelines for appropriate target ranges for prosthetic heart valve replacement. Current interpretive data was last revised on 2019. Blood 10/28/2023 12:3 4 AM TREE SPECIALIST 10/28/2023 1:02 AM TREE SPECIALIST Byron Olvera NP LAB BLOOD ORDERABLES Fi nal Result Performing Organization Address City/[facility] Co de Phone Number [facility] [address] [facility] [place] [place] [address] * Magnesium (10/28/2023 12:34 AM TREE SPECIALIST) [facility] Magnesium 2.3 1.4 - 2.5 mg/dL Blood 10/28/2023 12:3 4 AM TREE SPECIALIST 10/28/2023 1:02 AM TREE SPECIALIST Byron Olvera NP LAB BLOOD ORDERABLES Fi nal Result Performing Organization Address [facility] Co de Phone Number [facility] [address] [facility] [place] [place] [address] * (ABNORMAL) Renal function panel (10/28/2023 12:34 AM TREE SPECIALIST) [facility] Sodium 128(L) 135 - 145 mmol/L Potassium, pl 4.4 3.3 - 4.9 mmol/L [facility] Chloride 87(L) 97 - 110 mmol/L [facility] CO2 22 22 - 32 mmol/L [facility] Anion gap 19(H) 2 - 15 mmol/L [facility] BUN 90(H) 6 - 25 mg/dL [facility] Creatinine 9.98(H) 0.80 - 1.30 mg/dL [facility] Glucose 270(H) 70 - 199 mg/dL [facility] Comment: Interpretive Data Fasting glucose >/= [...] 2022. Calcium 8.9 8.5 - 10.3 mg/dL [facility] Phosphorus, pl 6.3(H) 2.3 - 4.5 mg/dL [facility] Albumin 2.9(L) 3.5 - 5.0 g/dL [facility] Blood 10/28/2023 12:3 4 AM TREE SPECIALIST 10/28/2023 1:02 AM TREE SPECIALIST us Byron Olvera NP LAB BLOOD ORDERABLES Fi nal Result [facility] [address] Department [place] [address] * (ABNORMAL) CBC without differential (10/28/2023 12:34 AM TREE SPECIALIST) WBC 7.4 3.8 - 9.9 K/cumm Hgb 7.4(L) 13.0 - 17.5 g/dL [facility] Hct 24.1(L) 38.9 - 50.3 % [facility] Plt 244 150 - 400 K/cumm [facility] MPV 10.5 9.1 - 12.3 fL [facility] RBC 2.55(L) 4.30 - 5.80 M/cumm [facility] MCV 94.5 81.3 - 96.4 fL [facility] MCH 29.0 27.1 - 33.3 pg [facility] MCHC 30.7(L) 32.3 - 35.7 g/dL [facility] RDW CV 15.6(H) 11.1 - 14.9 % [facility] RDW SD 53.4(H) 35.7 - 48.1 fL [facility] NRBC abs 0.00 0.00 - 0.01 K/cumm [facility] Blood 10/28/2023 12:3 4 AM TREE SPECIALIST 10/28/2023 1:03 AM TREE SPECIALIST Byron Olvera CLOTH PAINTER LAB BLOOD ORDERABLES Fi nal Result Performing Organization Address [facility] Co de Phone Number [facility] [address] Department [place] [address] * (ABNORMAL) POCT glucose (10/27/2023 10:01 PM TREE SPECIALIST) Glucose, POC 312(H) 70 - 140 mg/dL Comment: For Glucose values <35 mg/dl when Hematocrit is >60 mg/dl,the test may not accurately detect significant hypoglycemia,and testing in the Laboratory should be considered if clinically indicated. Blood 10/27/2023 10:0 1 PM TREE SPECIALIST 10/27/2023 10:01 PM TREE SPECIALIST Jaqueline Valero MD LAB POCT ORDERABLES - APRIL CE Final Result Performing Organization Address [facility] de Phone Number [facility] [address] [place] [employer] [place] [address] * POCT glucose (10/27/2023 5:48 PM TREE SPECIALIST) Glucose, POC 108 70 - 140 mg/dL Comment: For Glucose values <35 mg/dl when Hematocrit is >60 mg/dl,the test may not accurately detect significant hypoglycemia,and testing in the Laboratory should be considered if clinically indicated. Blood 10/27/2023 5:48 PM TREE SPECIALIST 10/27/2023 5:48 PM TREE SPECIALIST Jaqueline Valero MD LAB POCT ORDERABLES - APRIL CE Final Result Performing Organization Address [facility] de Phone Number [facility] [address] [place] [place] [address] * (ABNORMAL) POCT glucose (10/27/2023 11:54 AM TREE SPECIALIST) Glucose, POC 232(H) 70 - 140 mg/dL Comment: For Glucose values <35 mg/dl when Hematocrit is >60 mg/dl,the test may not accurately detect significant hypoglycemia,and testing in the Laboratory should be considered if clinically indicated. Blood 10/27/2023 11:5 4 AM TREE SPECIALIST 10/27/2023 11:54 AM TREE SPECIALIST Jaqueline Valero MD LAB POCT ORDERABLES - APRIL CE Final Result Performing Organization Address [facility] de Phone Number [facility] [address] [facility] [place] [place] [address] * (ABNORMAL) T4, free (10/27/2023 11:02 AM TREE SPECIALIST) Free T4 0.68(L) 0.90 - 1.70 ng/dL Blood 10/27/2023 11:0 2 AM TREE SPECIALIST 10/27/2023 11:14 AM TREE SPECIALIST us Fernandez Carranza MD LAB BLOOD ORDERABLES Final Resu lt Performing Organization Address [facility] de Phone Number [facility] [address] [place] [place] [address] * (ABNORMAL) POCT glucose (10/27/2023 8:28 AM TREE SPECIALIST) Glucose, POC 255(H) 70 - 140 mg/dL Comment: For Glucose values <35 mg/dl when Hematocrit is >60 mg/dl,the test may not accurately detect significant hypoglycemia,and testing in the Laboratory should be considered if clinically indicated. Blood 10/27/2023 8:28 AM TREE SPECIALIST 10/27/2023 8:28 AM TREE SPECIALIST us Jaqueline Valero MD LAB POCT ORDERABLES - APRIL CE Final Result Performing Organization Address City/[facility]/ZIP Co de Phone Number [facility] [address] [email or web address] [address] * XR Chest 1 View - Portable - in AM (10/27/2023 6:14 AM TREE SPECIALIST) Anatomical Region Laterality Modality Body, Chest N/A Computed Radiogr aphy 10/27/2023 10:5 5 AM TREE SPECIALIST Impressions 10/27/2023 10:55 AM TREE SPECIALIST Right internal jugular central venous catheter terminates in the superior cavoatrial junction. Unchanged small left pleural effusion with associated atelectasis. No consolidation to suggest pneumonia. ??No pneumothorax. ??Cardiac mediastinal silhouette is stable. Electronically signed by: Gucci Moe M.D. Narrative 10/27/2023 10:55 AM TREE SPECIALIST EXAMINATION: XR CHEST 1 VIEW HISTORY: pleural [...] signed by: Gucci Moe M.D. Byron Olvera CLOTH PAINTER IMG XR PROCEDURES Final Result * (ABNORMAL) Osmolality, blood (10/27/2023 6:02 AM TREE SPECIALIST) Osmo 313(H) 275 - 295 mOsm/kg Blood 10/27/2023 6:02 AM TREE SPECIALIST 10/27/2023 6:12 AM TREE SPECIALIST us Fernandez Carranza MD LAB BLOOD ORDERABLES Final Resu lt Performing Organization Address [facility]/ZIP Co de Phone Number [facility] [address] Department [employer] [address] * (ABNORMAL) TSH (10/27/2023 2:30 AM TREE SPECIALIST) Pathologist [facility] Thyroid Stimulating Hormone 13.20(H) 0.30 - 4.20 mcIUnit/mL Blood 10/27/2023 2:30 AM TREE SPECIALIST 10/27/2023 2:42 AM TREE SPECIALIST Jaqueline Valero MD LAB BLOOD ORDERABLES Final Result Performing Organization Address [facility] de Phone Number [facility] [address] [facility] [place] [place] [address] * (ABNORMAL) aPTT (10/27/2023 2:30 AM TREE SPECIALIST) [facility] aPTT 91(H) 28 - 38 sec Comment: Interpretive Data Heparin therapeutic range: 66.0 - 100.0 seconds. Range based on correlation with therapeutic heparin activity range of 0.3 - 0.7 Units/mL. Current interpretive data was last revised on 2023. Blood 10/27/2023 2:30 AM TREE SPECIALIST 10/27/2023 2:34 AM TREE SPECIALIST Jaqueline Valero MD LAB BLOOD ORDERABLES Final Result Performing Organization Address [facility] de Phone Number [facility] [address] [facility] [place] [employer] [place] [address] * eGFR (10/27/2023 2:30 AM TREE SPECIALIST) Pathologist [facility] eGFR 6 mL/min/1. [...] last reviewed 2021. Blood 10/27/2023 2:30 AM TREE SPECIALIST 10/27/2023 2:42 AM TREE SPECIALIST Byron Olvera NP LAB BLOOD ORDERABLES Fi nal Result Performing Organization Address [facility] de Phone Number [facility] [address] [email or web address] [place], [place] [id number] * (ABNORMAL) Protime-INR (10/27/2023 2:30 AM TREE SPECIALIST) PT 22.7(H) 10.3 - 13.7 sec INR 1.99(H) 0.90 - 1.20 [facility] Comment: Interpretive data Oral anticoagulant therapeutic ranges: Venous thromboembolism prophylaxis or treatment: 2.0-3.0 CARDIOLOGY Standard range: 2.0-3.0 High-intensity range: 2.5-3.5 Refer to indication-specific guidelines for appropriate target ranges for prosthetic heart valve replacement. Current interpretive data was last revised on 2019. Blood 10/27/2023 2:30 AM TREE SPECIALIST 10/27/2023 2:34 AM TREE SPECIALIST Byron Olvera NP LAB BLOOD ORDERABLES Fi nal Result Performing Organization Address [facility] de Phone Number [facility] [address] Department [place] [address] * Magnesium (10/27/2023 2:30 AM TREE SPECIALIST) Pathologist [facility] Magnesium 2.3 1.4 - 2.5 mg/dL Blood 10/27/2023 2:30 AM TREE SPECIALIST 10/27/2023 2:42 AM TREE SPECIALIST Byron Olvera NP LAB BLOOD ORDERABLES Fi nal Result [facility] [address] Department [place] [address] * (ABNORMAL) Renal function panel (10/27/2023 2:30 AM TREE SPECIALIST) Pathologist [facility] Sodium 123(L) 135 - 145 mmol/L Potassium, pl 4.2 3.3 - 4.9 mmol/L [facility] Chloride 85(L) 97 - 110 mmol/L [facility] CO2 24 22 - 32 mmol/L [facility] Anion gap 14 2 - 15 mmol/L [facility] BUN 87(H) 6 - 25 mg/dL [facility] Creatinine 10.09(H) 0.80 - 1.30 mg/dL [facility] Glucose 192 70 - 199 mg/dL [facility] Comment: Interpretive Data Fasting glucose >/= [...] 2022. Calcium 8.7 8.5 - 10.3 mg/dL [facility] Phosphorus, pl 7.1(H) 2.3 - 4.5 mg/dL [facility] Albumin 2.9(L) 3.5 - 5.0 g/dL [facility] Blood 10/27/2023 2:30 AM TREE SPECIALIST 10/27/2023 2:42 AM TREE SPECIALIST Byron Olvera NP LAB BLOOD ORDERABLES Fi nal Result Performing Organization Address [facility] Co de Phone Number [facility] [address] [email or web address] [address] * (ABNORMAL) CBC without differential (10/27/2023 2:30 AM TREE SPECIALIST) [facility] WBC 8.0 3.8 - 9.9 K/cumm Hgb 7.5(L) 13.0 - 17.5 g/dL [facility] Hct 23.7(L) 38.9 - 50.3 % [facility] Plt 222 150 - 400 K/cumm [facility] MPV 10.3 9.1 - 12.3 fL [facility] RBC 2.55(L) 4.30 - 5.80 M/cumm [facility] MCV 92.9 81.3 - 96.4 fL [facility] MCH 29.4 27.1 - 33.3 pg [facility] MCHC 31.6(L) 32.3 - 35.7 g/dL [facility] RDW CV 15.6(H) 11.1 - 14.9 % [facility] RDW SD 53.1(H) 35.7 - 48.1 fL [facility] NRBC abs 0.00 0.00 - 0.01 K/cumm [facility] Blood 10/27/2023 2:30 AM TREE SPECIALIST 10/27/2023 2:42 AM TREE SPECIALIST Byron Olvera NP LAB BLOOD ORDERABLES Fi nal Result Performing Organization Address City/[facility]/ZIP Co de Phone Number [facility] [address] Department [employer] [address] * (ABNORMAL) POCT glucose (10/26/2023 11:15 PM TREE SPECIALIST) Pathologist [facility] Glucose, POC 220(H) 70 - 140 mg/dL Comment: For Glucose values <35 mg/dl when Hematocrit is >60 mg/dl,the test may not accurately detect significant hypoglycemia,and testing in the Laboratory should be considered if clinically indicated. Blood 10/26/2023 11:1 5 PM TREE SPECIALIST 10/26/2023 11:15 PM TREE SPECIALIST Jaqueline Valero MD LAB POCT ORDERABLES - APRIL CE Final Result Performing Organization Address [facility] de Phone Number [facility] [address] [facility] [place] [employer] [place] [address] * (ABNORMAL) POCT glucose (10/26/2023 4:53 PM TREE SPECIALIST) Glucose, POC 333(H) 70 - 140 mg/dL Comment: For Glucose values <35 mg/dl when Hematocrit is >60 mg/dl,the test may not accurately detect significant hypoglycemia,and testing in the Laboratory should be considered if clinically indicated. Blood 10/26/2023 4:53 PM TREE SPECIALIST 10/26/2023 4:53 PM TREE SPECIALIST Jaqueline Valero MD LAB POCT ORDERABLES - APRIL CE Final Result Performing Organization Address [facility] de Phone Number [facility] [address] [place] [address] * (ABNORMAL) POCT glucose (10/26/2023 11:57 AM TREE SPECIALIST) Glucose, POC 203(H) 70 - 140 mg/dL Comment: For Glucose values <35 mg/dl when Hematocrit is >60 mg/dl,the test may not accurately detect significant hypoglycemia,and testing in the Laboratory should be considered if clinically indicated. Blood 10/26/2023 11:5 7 AM TREE SPECIALIST 10/26/2023 11:57 AM TREE SPECIALIST Jaqeuline Valero MD LAB POCT ORDERABLES - APRIL CE Final Result Performing Organization Address [facility] de Phone Number [facility] [address] Department [place] [address] * POCT glucose (10/26/2023 8:00 AM TREE SPECIALIST) [facility] Glucose, POC 90 70 - 140 mg/dL Comment: For Glucose values <35 mg/dl when Hematocrit is >60 mg/dl,the test may not accurately detect significant hypoglycemia,and testing in the Laboratory should be considered if clinically indicated. Blood 10/26/2023 8:00 AM TREE SPECIALIST 10/26/2023 8:00 AM TREE SPECIALIST us Jaqueline Valero MD LAB POCT ORDERABLES - APRIL CE Final Result [facility] [address] Department [place] [address] * XR Chest 1 View - Portable - in AM (10/26/2023 5:09 AM TREE SPECIALIST) Anatomical Region Laterality Modality Body, Chest N/A Computed Radiogr aphy 10/26/2023 7:40 AM TREE SPECIALIST Impressions 10/26/2023 7:40 AM TREE SPECIALIST Comparison chest radiograph 10/25/2023 at 6:39 AM. [...] Chris Troncoso M.D. Narrative 10/26/2023 7:40 AM TREE SPECIALIST EXAMINATION: ??1 view chest radiograph Procedure Note [...] signed by: Chris Troncoso M.D. Byron Olvera CLOTH PAINTER IMG XR PROCEDURES Final Result * eGFR (10/26/2023 2:29 AM TREE SPECIALIST) eGFR 6 mL/min/1. 73 m2 Comment: Interpretive [...] last reviewed 2021. Blood 10/26/2023 2:29 AM TREE SPECIALIST 10/26/2023 3:11 AM TREE SPECIALIST Byron Olvera NP LAB BLOOD ORDERABLES Fi nal Result Performing Organization Address [facility] Co de Phone Number [facility] [address] [facility] [employer] [place], [place] [id number] * (ABNORMAL) aPTT (10/26/2023 2:29 AM TREE SPECIALIST) aPTT 74(H) 28 - 38 sec Comment: Interpretive Data Heparin therapeutic range: 66.0 - 100.0 seconds. Range based on correlation with therapeutic heparin activity range of 0.3 - 0.7 Units/mL. Current interpretive data was last revised on 2023. Blood 10/26/2023 2:29 AM TREE SPECIALIST 10/26/2023 2:57 AM TREE SPECIALIST Jaqueline Valero MD LAB BLOOD ORDERABLES Final Result Performing Organization Address [facility] Co de Phone Number [facility] [address] [facility] [place] [place] [address] * (ABNORMAL) Protime-INR (10/26/2023 2:29 AM TREE SPECIALIST) PT 19.4(H) 10.3 - 13.7 sec INR 1.70(H) 0.90 - 1.20 [facility] Comment: Interpretive data Oral anticoagulant therapeutic ranges: Venous thromboembolism prophylaxis or treatment: 2.0-3.0 CARDIOLOGY Standard range: 2.0-3.0 High-intensity range: 2.5-3.5 Refer to indication-specific guidelines for appropriate target ranges for prosthetic heart valve replacement. Current interpretive data was last revised on 2019. Blood 10/26/2023 2:29 AM TREE SPECIALIST 10/26/2023 2:57 AM TREE SPECIALIST Byron Rudi Olvera CLOTH PAINTER LAB BLOOD ORDERABLES Fi nal Result [facility] [address] Department [employer] [place] [address] * Magnesium (10/26/2023 2:29 AM TREE SPECIALIST) [facility] Magnesium 2.2 1.4 - 2.5 mg/dL Blood 10/26/2023 2:29 AM TREE SPECIALIST 10/26/2023 3:11 AM TREE SPECIALIST Byron Rudi Olvera NP LAB BLOOD ORDERABLES Fi nal Result Performing Organization Address [facility] Co de Phone Number [facility] [address] [employer] [place] [place] [address] * (ABNORMAL) Renal function panel (10/26/2023 2:29 AM TREE SPECIALIST) [facility] Sodium 124(L) 135 - 145 mmol/L Potassium, pl 4.2 3.3 - 4.9 mmol/L [facility] Chloride 84(L) 97 - 110 mmol/L [facility] CO2 23 22 - 32 mmol/L [facility] Anion gap 17(H) 2 - 15 mmol/L [facility] BUN 85(H) 6 - 25 mg/dL [facility] Creatinine 9.95(H) 0.80 - 1.30 mg/dL [facility] Glucose 206(H) 70 - 199 mg/dL [facility] Comment: Interpretive Data Fasting glucose >/= [...] 2022. Calcium 8.6 8.5 - 10.3 mg/dL [facility] Phosphorus, pl 6.5(H) 2.3 - 4.5 mg/dL [facility] Albumin 3.0(L) 3.5 - 5.0 g/dL [facility] Blood 10/26/2023 2:29 AM TREE SPECIALIST 10/26/2023 3:11 AM TREE SPECIALIST Byron Olvera NP LAB BLOOD ORDERABLES Fi nal Result Performing Organization Address [facility] Co de Phone Number [facility] [address] [email or web address] [place], [place] [phone] * (ABNORMAL) CBC without differential (10/26/2023 2:29 AM TREE SPECIALIST) [facility] WBC 7.9 3.8 - 9.9 K/cumm Hgb 7.9(L) 13.0 - 17.5 g/dL [facility] Hct 24.7(L) 38.9 - 50.3 % [facility] Plt 209 150 - 400 K/cumm [facility] MPV 10.6 9.1 - 12.3 fL [facility] RBC 2.64(L) 4.30 - 5.80 M/cumm [facility] MCV 93.6 81.3 - 96.4 fL [facility] MCH 29.9 27.1 - 33.3 pg [facility] MCHC 32.0(L) 32.3 - 35.7 g/dL [facility] RDW CV 15.5(H) 11.1 - 14.9 % [facility] RDW SD 52.4(H) 35.7 - 48.1 fL [facility] NRBC abs 0.00 0.00 - 0.01 K/cumm [facility] Blood 10/26/2023 2:29 AM TREE SPECIALIST 10/26/2023 3:11 AM TREE SPECIALIST Byron Olvera NP LAB BLOOD ORDERABLES Fi nal Result Performing Organization Address City/[facility]/ZIP Co de Phone Number [facility] [address] Department [employer] [place], [place] [id number] * (ABNORMAL) aPTT (10/25/2023 9:15 PM TREE SPECIALIST) aPTT 78(H) 28 - 38 sec Comment: Interpretive Data Heparin therapeutic range: 66.0 - 100.0 seconds. Range based on correlation with therapeutic heparin activity range of 0.3 - 0.7 Units/mL. Current interpretive data was last revised on 2023. Blood 10/25/2023 9:15 PM TREE SPECIALIST 10/25/2023 9:19 PM TREE SPECIALIST Jaqueline Valero MD LAB BLOOD ORDERABLES Final Result Performing Organization Address [facility] Co de Phone Number [facility] [address] [facility] [employer] [place], [place] [phone] * (ABNORMAL) POCT glucose (10/25/2023 9:14 PM TREE SPECIALIST) Glucose, POC 147(H) 70 - 140 mg/dL Comment: For Glucose values <35 mg/dl when Hematocrit is >60 mg/dl,the test may not accurately detect significant hypoglycemia,and testing in the Laboratory should be considered if clinically indicated. Blood 10/25/2023 9:14 PM TREE SPECIALIST 10/25/2023 9:14 PM TREE SPECIALIST Jaqueline Valero MD LAB POCT ORDERABLES - APRIL CE Final Result Performing Organization Address [facility] Co de Phone Number [facility] [address] [facility] [place] [employer] [place] [address] * (ABNORMAL) POCT glucose (10/25/2023 4:51 PM TREE SPECIALIST) Glucose, POC 238(H) 70 - 140 mg/dL Comment: For Glucose values <35 mg/dl when Hematocrit is >60 mg/dl,the test may not accurately detect significant hypoglycemia,and testing in the Laboratory should be considered if clinically indicated. Blood 10/25/2023 4:51 PM TREE SPECIALIST 10/25/2023 4:51 PM TREE SPECIALIST Jaqueline Valero MD LAB POCT ORDERABLES - APRIL CE Final Result Performing Organization Address [facility] Co de Phone Number [facility] [address] [email or web address] [place], [place] [phone] * (ABNORMAL) aPTT (10/25/2023 2:48 PM TREE SPECIALIST) aPTT 72(H) 28 - 38 sec Comment: Interpretive Data Heparin therapeutic range: 66.0 - 100.0 seconds. Range based on correlation with therapeutic heparin activity range of 0.3 - 0.7 Units/mL. Current interpretive data was last revised on 2023. Blood 10/25/2023 2:48 PM TREE SPECIALIST 10/25/2023 3:04 PM TREE SPECIALIST Jaqueline Valero MD LAB BLOOD ORDERABLES Final Result Performing Organization Address [facility] de Phone Number [facility] [address] [email or web address] [place], [place] [phone] * (ABNORMAL) POCT glucose (10/25/2023 11:15 AM TREE SPECIALIST) Glucose, POC 208(H) 70 - 140 mg/dL Comment: For Glucose values <35 mg/dl when Hematocrit is >60 mg/dl,the test may not accurately detect significant hypoglycemia,and testing in the Laboratory should be considered if clinically indicated. Blood 10/25/2023 11:1 5 AM TREE SPECIALIST 10/25/2023 11:15 AM TREE SPECIALIST Jaqueline Valero MD LAB POCT ORDERABLES - APRIL CE Final Result Performing Organization Address [facility] Co de Phone Number [facility] [address] [facility] [employer] [place], [place] [phone] * POCT glucose (10/25/2023 9:49 AM TREE SPECIALIST) Glucose, POC 119 70 - 140 mg/dL Comment: For Glucose values <35 mg/dl when Hematocrit is >60 mg/dl,the test may not accurately detect significant hypoglycemia,and testing in the Laboratory should be considered if clinically indicated. Blood 10/25/2023 9:49 AM TREE SPECIALIST 10/25/2023 9:49 AM TREE SPECIALIST Jaqueline Valero MD LAB POCT ORDERABLES - APRIL CE Final Result Performing Organization Address [facility] de Phone Number [facility] [address] [place] [employer] [place] [address] * POCT glucose (10/25/2023 7:36 AM TREE SPECIALIST) [facility] Glucose, POC 77 70 - 140 mg/dL [facility] Comment: For Glucose values <35 mg/dl when Hematocrit is >60 mg/dl,the test may not accurately detect significant hypoglycemia,and testing in the Laboratory should be considered if clinically indicated. Blood 10/25/2023 7:36 AM TREE SPECIALIST 10/25/2023 7:36 AM TREE SPECIALIST Jaqueline Valero MD LAB POCT ORDERABLES - APRIL CE Final Result Performing Organization Address [facility] de Phone Number [facility] [address] [place] [employer] [place] [address] * XR Chest 1 View - Portable - in AM (10/25/2023 6:52 AM TREE SPECIALIST) Anatomical Region Laterality Modality Body, Chest N/A Computed Radiogr aphy 10/25/2023 11:4 3 AM TREE SPECIALIST Impressions 10/25/2023 1:22 PM TREE SPECIALIST Comparison made to 10/24/2023. ??Sternal fixation wires [...] Arnoldo Abdul M.D. Narrative 10/25/2023 1:22 PM TREE SPECIALIST EXAMINATION: XR CHEST 1 VIEW Procedure Note [...] signed by: Arnoldo Abdul M.D. Byron Olvera CLOTH PAINTER IMG XR PROCEDURES Final Result * (ABNORMAL) aPTT (10/25/2023 6:48 AM TREE SPECIALIST) aPTT 65(H) 28 - 38 sec [facility] Comment: Interpretive Data Heparin therapeutic range: 66.0 - 100.0 seconds. Range based on correlation with therapeutic heparin activity range of 0.3 - 0.7 Units/mL. Current interpretive data was last revised on 2023. Blood 10/25/2023 6:48 AM TREE SPECIALIST 10/25/2023 6:58 AM TREE SPECIALIST us Jaqueline Valero MD LAB BLOOD ORDERABLES Final Result [facility] [address] [place] [employer] [place] [address] * POCT glucose (10/25/2023 4:23 AM TREE SPECIALIST) Glucose, POC 130 70 - 140 mg/dL [facility] Comment: For Glucose values <35 mg/dl when Hematocrit is >60 mg/dl,the test may not accurately detect significant hypoglycemia,and testing in the Laboratory should be considered if clinically indicated. Blood 10/25/2023 4:23 AM TREE SPECIALIST 10/25/2023 4:23 AM TREE SPECIALIST us Jaqueline Valero MD LAB POCT ORDERABLES - APRIL CE Final Result [facility] [address] Department [place] [address] * eGFR (10/25/2023 12:34 AM TREE SPECIALIST) [facility] eGFR 5 mL/min/1. 73 m2 [facility] Comment: Interpretive Data Reference Interval Normal [...] reviewed 2021. Blood 10/25/2023 12:3 4 AM TREE SPECIALIST 10/25/2023 12:42 AM TREE SPECIALIST Byron Olvera NP LAB BLOOD ORDERABLES Fi nal Result Performing Organization Address City/[facility]/ZIP Co de Phone Number [facility] [address] [facility] [place] [employer] [place] [address] * Magnesium (10/25/2023 12:34 AM TREE SPECIALIST) [facility] Magnesium 2.3 1.4 - 2.5 mg/dL [facility] Blood 10/25/2023 12:3 4 AM TREE SPECIALIST 10/25/2023 12:42 AM TREE SPECIALIST Byron Olvera NP LAB BLOOD ORDERABLES Fi nal Result Performing Organization Address [facility] de Phone Number [facility] [address] [facility] [place] [employer] [place] [address] * (ABNORMAL) Renal function panel (10/25/2023 12:34 AM TREE SPECIALIST) Pathologist [facility] Sodium 128(L) 135 - 145 mmol/L [facility] Potassium, pl 4.0 3.3 - 4.9 mmol/L [facility] Chloride 86(L) 97 - 110 mmol/L [facility] CO2 21(L) 22 - 32 mmol/L [facility] Anion gap 21(H) 2 - 15 mmol/L [facility] BUN 86(H) 6 - 25 mg/dL [facility] Creatinine 10.57(H) 0.80 - 1.30 mg/dL [facility] Glucose 97 70 - 199 mg/dL [facility] Comment: Interpretive Data Fasting glucose >/= [...] 2022. Calcium 9.0 8.5 - 10.3 mg/dL [facility] Phosphorus, pl 6.5(H) 2.3 - 4.5 mg/dL [facility] Albumin 2.9(L) 3.5 - 5.0 g/dL [facility] Blood 10/25/2023 12:3 4 AM TREE SPECIALIST 10/25/2023 12:42 AM TREE SPECIALIST Byron Olvera NP LAB BLOOD ORDERABLES nal Result [facility] [address] Department [place] [address] * (ABNORMAL) CBC without differential (10/25/2023 12:34 AM TREE SPECIALIST) WBC 8.2 3.8 - 9.9 K/cumm [facility] Hgb 7.8(L) 13.0 - 17.5 g/dL [facility] Hct 24.7(L) 38.9 - 50.3 % [facility] Plt 202 150 - 400 K/cumm [facility] MPV 10.2 9.1 - 12.3 fL [facility] RBC 2.65(L) 4.30 - 5.80 M/cumm [facility] MCV 93.2 81.3 - 96.4 fL [facility] MCH 29.4 27.1 - 33.3 pg [facility] MCHC 31.6(L) 32.3 - 35.7 g/dL [facility] RDW CV 15.9(H) 11.1 - 14.9 % [facility] RDW SD 53.1(H) 35.7 - 48.1 fL [facility] NRBC abs 0.00 0.00 - 0.01 K/cumm [facility] Blood 10/25/2023 12:3 4 AM TREE SPECIALIST 10/25/2023 12:43 AM TREE SPECIALIST Byron Olvera NP LAB BLOOD ORDERABLES Fi nal Result [facility] [address] [facility] [place] [employer] [place] [address] * (ABNORMAL) Protime-INR (10/25/2023 12:33 AM TREE SPECIALIST) PT 18.5(H) 10.3 - 13.7 sec [facility] INR 1.62(H) 0.90 - 1.20 [facility] Comment: Interpretive data Oral anticoagulant therapeutic ranges: Venous thromboembolism prophylaxis or treatment: 2.0-3.0 CARDIOLOGY Standard range: 2.0-3.0 High-intensity range: 2.5-3.5 Refer to indication-specific guidelines for appropriate target ranges for prosthetic heart valve replacement. Current interpretive data was last revised on 2019. Blood 10/25/2023 12:3 3 AM TREE SPECIALIST 10/25/2023 12:40 AM TREE SPECIALIST us Jaqueline Valero MD LAB BLOOD ORDERABLES Final Result Performing Organization Address City/[facility]/ZIP Co de Phone Number [facility] [address] [facility] [place] [employer] [place] [address] * (ABNORMAL) aPTT (10/25/2023 12:33 AM TREE SPECIALIST) aPTT 58(H) 28 - 38 sec [facility] Comment: Interpretive Data Heparin therapeutic range: 66.0 - 100.0 seconds. Range based on correlation with therapeutic heparin activity range of 0.3 - 0.7 Units/mL. Current interpretive data was last revised on 2023. Blood 10/25/2023 12:3 3 AM TREE SPECIALIST 10/25/2023 12:40 AM TREE SPECIALIST Jaqueline Valero MD LAB BLOOD ORDERABLES Final Result [facility] [address] [facility] [place] [employer] [place] [address] * POCT glucose (10/24/2023 9:51 PM TREE SPECIALIST) Glucose, POC 130 70 - 140 mg/dL [facility] Comment: For Glucose values <35 mg/dl when Hematocrit is >60 mg/dl,the test may not accurately detect significant hypoglycemia,and testing in the Laboratory should be considered if clinically indicated. Blood 10/24/2023 9:51 PM TREE SPECIALIST 10/24/2023 9:51 PM TREE SPECIALIST Jaqueline Valero MD LAB POCT ORDERABLES - APRIL CE Final Result Performing Organization Address [facility] de Phone Number [facility] [address] [facility] [place] [employer] [place] [address] * (ABNORMAL) aPTT (10/24/2023 5:15 PM TREE SPECIALIST) aPTT 45(H) 28 - 38 sec [facility] Comment: Interpretive Data Heparin therapeutic range: 66.0 - 100.0 seconds. Range based on correlation with therapeutic heparin activity range of 0.3 - 0.7 Units/mL. Current interpretive data was last revised on 2023. Blood 10/24/2023 5:15 PM TREE SPECIALIST 10/24/2023 5:15 PM TREE SPECIALIST Jaqueline Valero MD LAB BLOOD ORDERABLES Final Result Performing Organization Address [facility] Co de Phone Number [facility] [address] [facility] [place] [employer] [place] [address] * (ABNORMAL) POCT glucose (10/24/2023 4:42 PM TREE SPECIALIST) Glucose, POC 149(H) 70 - 140 mg/dL [facility] Comment: For Glucose values <35 mg/dl when Hematocrit is >60 mg/dl,the test may not accurately detect significant hypoglycemia,and testing in the Laboratory should be considered if clinically indicated. Blood 10/24/2023 4:42 PM TREE SPECIALIST 10/24/2023 4:42 PM TREE SPECIALIST Jaqueline Valero MD LAB POCT ORDERABLES - APRIL CE Final Result Performing Organization Address [facility] de Phone Number [facility] [address] [facility] [place] [address] * POCT glucose (10/24/2023 12:17 PM TREE SPECIALIST) Glucose, POC 118 70 - 140 mg/dL [facility] Comment: For Glucose values <35 mg/dl when Hematocrit is >60 mg/dl,the test may not accurately detect significant hypoglycemia,and testing in the Laboratory should be considered if clinically indicated. Blood 10/24/2023 12:1 7 PM TREE SPECIALIST 10/24/2023 12:17 PM TREE SPECIALIST Jaqueline Valero MD LAB POCT ORDERABLES - APRIL CE Final Result Performing Organization Address [facility] de Phone Number [facility] [address] [facility] [place] [employer] [place] [address] * (ABNORMAL) POCT glucose (10/24/2023 7:44 AM TREE SPECIALIST) Glucose, POC 202(H) 70 - 140 mg/dL [facility] Comment: For Glucose values <35 mg/dl when Hematocrit is >60 mg/dl,the test may not accurately detect significant hypoglycemia,and testing in the Laboratory should be considered if clinically indicated. Blood 10/24/2023 7:44 AM TREE SPECIALIST 10/24/2023 7:44 AM TREE SPECIALIST Jaqueline Valero MD LAB POCT ORDERABLES - APRIL CE Final Result Performing Organization Address [facility] de Phone Number [facility] [address] Department [place] [address] * XR Chest 1 View - Portable - in AM (10/24/2023 5:54 AM TREE SPECIALIST) Anatomical Region Laterality Modality Body, Chest N/A Computed Radiogr aphy 10/24/2023 10:3 4 AM TREE SPECIALIST Impressions 10/24/2023 10:34 AM TREE SPECIALIST Comparison is made to single view chest [...] Tania Malone M.D. Narrative 10/24/2023 10:34 AM TREE SPECIALIST EXAMINATION: 1 view chest radiograph Procedure Note [...] signed by: Tania Malone M.D. Byron Olvera CLOTH PAINTER IMG XR PROCEDURES Final Result * eGFR (10/24/2023 1:03 AM TREE SPECIALIST) eGFR 5 mL/min/1. 73 m2 [facility] Comment: Interpretive Data Reference Interval Normal [...] last reviewed 2021. Blood 10/24/2023 1:03 AM TREE SPECIALIST 10/24/2023 1:13 AM TREE SPECIALIST Byron Olvera NP LAB BLOOD ORDERABLES Fi nal Result Performing Organization Address [facility] de Phone Number [facility] [address] [email or web address] [address] * (ABNORMAL) Protime-INR (10/24/2023 1:03 AM TREE SPECIALIST) PT 18.2(H) 10.3 - 13.7 sec [facility] INR 1.60(H) 0.90 - 1.20 [facility] Comment: Interpretive data Oral anticoagulant therapeutic ranges: Venous thromboembolism prophylaxis or treatment: 2.0-3.0 CARDIOLOGY Standard range: 2.0-3.0 High-intensity range: 2.5-3.5 Refer to indication-specific guidelines for appropriate target ranges for prosthetic heart valve replacement. Current interpretive data was last revised on 2019. Blood 10/24/2023 1:03 AM TREE SPECIALIST 10/24/2023 1:13 AM TREE SPECIALIST Byron Olvera NP LAB BLOOD ORDERABLES Fi nal Result Performing Organization Address [facility] Co de Phone Number [facility] [address] [email or web address] [place], [place] [phone] * Magnesium (10/24/2023 1:03 AM TREE SPECIALIST) Magnesium 2.2 1.4 - 2.5 mg/dL [facility] Blood 10/24/2023 1:03 AM TREE SPECIALIST 10/24/2023 1:13 AM TREE SPECIALIST us Byron Olvera CLOTH PAINTER LAB BLOOD ORDERABLES Fi nal Result [facility] [address] Department [place] [address] * (ABNORMAL) Renal function panel (10/24/2023 1:03 AM TREE SPECIALIST) Pathologist [facility] Sodium 127(L) 135 - 145 mmol/L [facility] Potassium, pl 4.2 3.3 - 4.9 mmol/L [facility] Chloride 86(L) 97 - 110 mmol/L [facility] CO2 21(L) 22 - 32 mmol/L [facility] Anion gap 20(H) 2 - 15 mmol/L [facility] BUN 90(H) 6 - 25 mg/dL [facility] Creatinine 11.24(H) 0.80 - 1.30 mg/dL [facility] Glucose 143 70 - 199 mg/dL [facility] Comment: Interpretive Data Fasting glucose >/= [...] 2022. Calcium 8.6 8.5 - 10.3 mg/dL [facility] Phosphorus, pl 6.1(H) 2.3 - 4.5 mg/dL [facility] Albumin 2.7(L) 3.5 - 5.0 g/dL [facility] Blood 10/24/2023 1:03 AM TREE SPECIALIST 10/24/2023 1:13 AM TREE SPECIALIST Byron Olvera NP LAB BLOOD ORDERABLES Fi nal Result Performing Organization Address [facility] Co de Phone Number [facility] [address] [email or web address] [address] * (ABNORMAL) CBC without differential (10/24/2023 1:03 AM TREE SPECIALIST) [facility] WBC 9.3 3.8 - 9.9 K/cumm [facility] Hgb 7.6(L) 13.0 - 17.5 g/dL [facility] Hct 24.4(L) 38.9 - 50.3 % [facility] Plt 184 150 - 400 K/cumm [facility] MPV 10.5 9.1 - 12.3 fL [facility] RBC 2.58(L) 4.30 - 5.80 M/cumm [facility] MCV 94.6 81.3 - 96.4 fL [facility] MCH 29.5 27.1 - 33.3 pg [facility] MCHC 31.1(L) 32.3 - 35.7 g/dL [facility] RDW CV 15.9(H) 11.1 - 14.9 % [facility] RDW SD 53.1(H) 35.7 - 48.1 fL [facility] NRBC abs 0.00 0.00 - 0.01 K/cumm [facility] Blood 10/24/2023 1:03 AM TREE SPECIALIST 10/24/2023 1:13 AM TREE SPECIALIST Byron Olvera NP LAB BLOOD ORDERABLES Fi nal Result Performing Organization Address [facility]/ZIP Co de Phone Number [facility] [address] Department [employer] [address] * POCT glucose (10/23/2023 11:14 PM TREE SPECIALIST) Pathologist [facility] Glucose, POC 128 70 - 140 mg/dL [facility] Comment: For Glucose values <35 mg/dl when Hematocrit is >60 mg/dl,the test may not accurately detect significant hypoglycemia,and testing in the Laboratory should be considered if clinically indicated. Blood 10/23/2023 11:1 4 PM TREE SPECIALIST 10/23/2023 11:14 PM TREE SPECIALIST Jaqueline Valero MD LAB POCT ORDERABLES - APRIL CE Final Result Performing Organization Address [facility] de Phone Number [facility] [address] [place] [address] * POCT glucose (10/23/2023 10:43 PM TREE SPECIALIST) Glucose, POC 92 70 - 140 mg/dL [facility] Comment: For Glucose values <35 mg/dl when Hematocrit is >60 mg/dl,the test may not accurately detect significant hypoglycemia,and testing in the Laboratory should be considered if clinically indicated. Blood 10/23/2023 10:4 3 PM TREE SPECIALIST 10/23/2023 10:43 PM TREE SPECIALIST Result [facility] Jaqueline Valero MD LAB POCT ORDERABLES - APRIL CE Final Result Performing Organization Address [facility] de Phone Number [facility] [address] [place] [address] * POCT glucose (10/23/2023 5:12 PM TREE SPECIALIST) Glucose, POC 113 70 - 140 mg/dL [facility] Comment: For Glucose values <35 mg/dl when Hematocrit is >60 mg/dl,the test may not accurately detect significant hypoglycemia,and testing in the Laboratory should be considered if clinically indicated. Blood 10/23/2023 5:12 PM TREE SPECIALIST 10/23/2023 5:12 PM TREE SPECIALIST Jaqueline Valero MD LAB POCT ORDERABLES - APRIL CE Final Result Performing Organization Address [facility]/ZIP Co de Phone Number [facility] [address] [facility] [place] [employer] [place] [address] * (ABNORMAL) POCT glucose (10/23/2023 12:08 PM TREE SPECIALIST) Glucose, POC 203(H) 70 - 140 mg/dL [facility] Comment: For Glucose values <35 mg/dl when Hematocrit is >60 mg/dl,the test may not accurately detect significant hypoglycemia,and testing in the Laboratory should be considered if clinically indicated. Blood 10/23/2023 12:0 8 PM TREE SPECIALIST 10/23/2023 12:08 PM TREE SPECIALIST Jaqueline Valero MD LAB POCT ORDERABLES - APRIL CE Final Result Performing Organization Address [facility] Co de Phone Number [facility] [address] [facility] [place] [place] [address] * (ABNORMAL) POCT glucose (10/23/2023 7:54 AM TREE SPECIALIST) Glucose, POC 205(H) 70 - 140 mg/dL [facility] Comment: For Glucose values <35 mg/dl when Hematocrit is >60 mg/dl,the test may not accurately detect significant hypoglycemia,and testing in the Laboratory should be considered if clinically indicated. Blood 10/23/2023 7:54 AM TREE SPECIALIST 10/23/2023 7:54 AM TREE SPECIALIST Jaqueline Valero MD LAB POCT ORDERABLES - APRIL CE Final Result Performing Organization Address [facility] Co de Phone Number [facility] [address] [facility] [place] [place] [address] * XR Chest 1 View - Portable - in AM (10/23/2023 6:24 AM TREE SPECIALIST) Anatomical Region Laterality Modality Body, Chest N/A Computed Radiogr aphy 10/23/2023 7:12 AM TREE SPECIALIST Impressions 10/23/2023 7:12 AM TREE SPECIALIST Comparison is made to 10/22/2023. ??There are [...] Manuel Bruno M.D. Narrative 10/23/2023 7:12 AM TREE SPECIALIST Examination: Chest one view Procedure Note Manuel [...] signed by: Manuel Bruno M.D. Byron Olvera CLOTH PAINTER IMG XR PROCEDURES Final Result * eGFR (10/23/2023 1:53 AM TREE SPECIALIST) eGFR 5 mL/min/1. 73 m2 [facility] Comment: Interpretive Data Reference Interval Normal [...] last reviewed 2021. Blood 10/23/2023 1:53 AM TREE SPECIALIST 10/23/2023 2:08 AM TREE SPECIALIST Byron Olvera NP LAB BLOOD ORDERABLES Fi nal Result Performing Organization Address [facility] de Phone Number [facility] [address] [email or web address] [address] * (ABNORMAL) Protime-INR (10/23/2023 1:53 AM TREE SPECIALIST) PT 24.9(H) 10.3 - 13.7 sec [facility] INR 2.18(H) 0.90 - 1.20 [facility] Comment: Interpretive data Oral anticoagulant therapeutic ranges: Venous thromboembolism prophylaxis or treatment: 2.0-3.0 CARDIOLOGY Standard range: 2.0-3.0 High-intensity range: 2.5-3.5 Refer to indication-specific guidelines for appropriate target ranges for prosthetic heart valve replacement. Current interpretive data was last revised on 2019. Blood 10/23/2023 1:53 AM TREE SPECIALIST 10/23/2023 2:08 AM TREE SPECIALIST Byron Olvera NP LAB BLOOD ORDERABLES Fi nal Result Performing Organization Address [facility] Co de Phone Number [facility] [address] [facility] [employer] [place], [place] [id number] * Magnesium (10/23/2023 1:53 AM TREE SPECIALIST) Magnesium 2.4 1.4 - 2.5 mg/dL [facility] Blood 10/23/2023 1:53 AM TREE SPECIALIST 10/23/2023 2:08 AM TREE SPECIALIST us Byron Olvera CLOTH PAINTER LAB BLOOD ORDERABLES Fi nal Result [facility] [address] Department [place] [address] * (ABNORMAL) Renal function panel (10/23/2023 1:53 AM TREE SPECIALIST) [facility] Sodium 132(L) 135 - 145 mmol/L [facility] Potassium, pl 4.3 3.3 - 4.9 mmol/L [facility] Chloride 91(L) 97 - 110 mmol/L [facility] CO2 20(L) 22 - 32 mmol/L [facility] Anion gap 21(H) 2 - 15 mmol/L [facility] BUN 91(H) 6 - 25 mg/dL [facility] Creatinine 11.59(H) 0.80 - 1.30 mg/dL [facility] Glucose 176 70 - 199 mg/dL [facility] Comment: Interpretive Data Fasting glucose >/= [...] 2022. Calcium 9.0 8.5 - 10.3 mg/dL [facility] Phosphorus, pl 6.2(H) 2.3 - 4.5 mg/dL [facility] Albumin 2.6(L) 3.5 - 5.0 g/dL [facility] Blood 10/23/2023 1:53 AM TREE SPECIALIST 10/23/2023 2:08 AM TREE SPECIALIST Byron Olvera CLOTH PAINTER LAB BLOOD ORDERABLES Fi nal Result Performing Organization Address City/[facility]/ZIP Co de Phone Number [facility] [address] [email or web address] [place], [place] [id number] * (ABNORMAL) CBC without differential (10/23/2023 1:53 AM TREE SPECIALIST) WBC 11.7(H) 3.8 - 9.9 K/cumm [facility] Hgb 8.5(L) 13.0 - 17.5 g/dL [facility] Hct 27.3(L) 38.9 - 50.3 % [facility] Plt 207 150 - 400 K/cumm [facility] MPV 10.5 9.1 - 12.3 fL [facility] RBC 2.86(L) 4.30 - 5.80 M/cumm [facility] MCV 95.5 81.3 - 96.4 fL [facility] MCH 29.7 27.1 - 33.3 pg [facility] MCHC 31.1(L) 32.3 - 35.7 g/dL [facility] RDW CV 15.9(H) 11.1 - 14.9 % [facility] RDW SD 53.6(H) 35.7 - 48.1 fL [facility] NRBC abs 0.00 0.00 - 0.01 K/cumm [facility] Blood 10/23/2023 1:53 AM TREE SPECIALIST 10/23/2023 2:08 AM TREE SPECIALIST Byron Olvera NP LAB BLOOD ORDERABLES Fi nal Result [facility] [address] [email or web address] [place], [place] [id number] * (ABNORMAL) POCT glucose (10/22/2023 11:55 PM TREE SPECIALIST) Glucose, POC 142(H) 70 - 140 mg/dL [facility] Comment: For Glucose values <35 mg/dl when Hematocrit is >60 mg/dl,the test may not accurately detect significant hypoglycemia,and testing in the Laboratory should be considered if clinically indicated. Blood 10/22/2023 11:5 5 PM TREE SPECIALIST 10/22/2023 11:55 PM TREE SPECIALIST Jaqueline Valero MD LAB POCT ORDERABLES - APRIL CE Final Result Performing Organization Address [facility] de Phone Number [facility] [address] [place] [address] * (ABNORMAL) POCT glucose (10/22/2023 9:12 PM TREE SPECIALIST) Glucose, POC 161(H) 70 - 140 mg/dL [facility] Comment: For Glucose values <35 mg/dl when Hematocrit is >60 mg/dl,the test may not accurately detect significant hypoglycemia,and testing in the Laboratory should be considered if clinically indicated. Blood 10/22/2023 9:12 PM TREE SPECIALIST 10/22/2023 9:12 PM TREE SPECIALIST Result [facility] Jaqueline Valero MD LAB POCT ORDERABLES - APRIL CE Final Result Performing Organization Address [facility] de Phone Number [facility] [address] [place] [address] * POCT glucose (10/22/2023 5:22 PM TREE SPECIALIST) Glucose, POC 102 70 - 140 mg/dL [facility] Comment: For Glucose values <35 mg/dl when Hematocrit is >60 mg/dl,the test may not accurately detect significant hypoglycemia,and testing in the Laboratory should be considered if clinically indicated. Blood 10/22/2023 5:22 PM TREE SPECIALIST 10/22/2023 5:22 PM TREE SPECIALIST Jaqueline Valero MD LAB POCT ORDERABLES - APRIL CE Final Result Performing Organization Address [facility] de Phone Number [facility] [address] [facility] [place] [place] [address] * (ABNORMAL) POCT glucose (10/22/2023 12:49 PM TREE SPECIALIST) Glucose, POC 177(H) 70 - 140 mg/dL [facility] Comment: For Glucose values <35 mg/dl when Hematocrit is >60 mg/dl,the test may not accurately detect significant hypoglycemia,and testing in the Laboratory should be considered if clinically indicated. Blood 10/22/2023 12:4 9 PM TREE SPECIALIST 10/22/2023 12:49 PM TREE SPECIALIST Jaqueline Valero MD LAB POCT ORDERABLES - APRIL CE Final Result Performing Organization Address [facility] de Phone Number [facility] [address] [facility] [place] [address] * (ABNORMAL) POCT glucose (10/22/2023 8:12 AM TREE SPECIALIST) Glucose, POC 158(H) 70 - 140 mg/dL [facility] Comment: For Glucose values <35 mg/dl when Hematocrit is >60 mg/dl,the test may not accurately detect significant hypoglycemia,and testing in the Laboratory should be considered if clinically indicated. Blood 10/22/2023 8:12 AM TREE SPECIALIST 10/22/2023 8:12 AM TREE SPECIALIST Jaqueline Valero MD LAB POCT ORDERABLES - APRIL CE Final Result Performing Organization Address [facility] Co de Phone Number [facility] [address] [place] [address] * XR Chest 1 View - Portable - in AM (10/22/2023 6:38 AM TREE SPECIALIST) Anatomical Region Laterality Modality Body, Chest N/A Computed Radiogr aphy 10/22/2023 8:02 AM TREE SPECIALIST Impressions 10/22/2023 8:02 AM TREE SPECIALIST Comparison is made to single view chest radiograph dated 10/21/2023. ??Sternotomy wires and sternal plates are unchanged. Right internal jugular central venous catheter tip overlies the superior vena cava. Persistent small lung volumes with bilateral subsegmental atelectasis. ??Trace left pleural effusion. ??No pneumothorax. Cardiomediastinal silhouette is stable. Electronically signed by: Tania Malone M.D. Narrative 10/22/2023 8:02 AM TREE SPECIALIST EXAMINATION: 1 view chest radiograph Procedure Note [...] signed by: Tania Malone M.D. Byron Olvera CLOTH PAINTER IMG XR PROCEDURES Final Result * eGFR (10/22/2023 12:31 AM TREE SPECIALIST) eGFR 5 mL/min/1. 73 m2 [facility] Comment: Interpretive Data Reference Interval Normal [...] reviewed 2021. Blood 10/22/2023 12:3 1 AM TREE SPECIALIST 10/22/2023 1:00 AM TREE SPECIALIST Byron Olvera NP LAB BLOOD ORDERABLES Fi nal Result Performing Organization Address [facility] Co de Phone Number [facility] [address] [employer] [place] [address] * (ABNORMAL) Protime-INR (10/22/2023 12:31 AM TREE SPECIALIST) PT 48.4(H) 10.3 - 13.7 sec [facility] INR 4.25(H) 0.90 - 1.20 [facility] Comment: Interpretive data Oral anticoagulant therapeutic ranges: Venous thromboembolism prophylaxis or treatment: 2.0-3.0 CARDIOLOGY Standard range: 2.0-3.0 High-intensity range: 2.5-3.5 Refer to indication-specific guidelines for appropriate target ranges for prosthetic heart valve replacement. Current interpretive data was last revised on 2019. Blood 10/22/2023 12:3 1 AM TREE SPECIALIST 10/22/2023 1:00 AM TREE SPECIALIST Byron Olvera NP LAB BLOOD ORDERABLES Fi nal Result Performing Organization Address [facility] Co de Phone Number [facility] [address] [employer] [place] [address] * Magnesium (10/22/2023 12:31 AM TREE SPECIALIST) Magnesium 2.4 1.4 - 2.5 mg/dL [facility] Blood 10/22/2023 12:3 1 AM TREE SPECIALIST 10/22/2023 1:00 AM TREE SPECIALIST Byron Olvera NP LAB BLOOD ORDERABLES Fi nal Result Performing Organization Address City/[facility]/ZIP Co de Phone Number [facility] [address] Department [place] [address] * (ABNORMAL) Renal function panel (10/22/2023 12:31 AM TREE SPECIALIST) Sodium 134(L) 135 - 145 mmol/L [facility] Potassium, pl 4.3 3.3 - 4.9 mmol/L [facility] Chloride 93(L) 97 - 110 mmol/L [facility] CO2 21(L) 22 - 32 mmol/L [facility] Anion gap 20(H) 2 - 15 mmol/L [facility] BUN 87(H) 6 - 25 mg/dL [facility] Creatinine 11.33(H) 0.80 - 1.30 mg/dL [facility] Glucose 212(H) 70 - 199 mg/dL [facility] Comment: Interpretive Data Fasting glucose >/= [...] 2022. Calcium 8.8 8.5 - 10.3 mg/dL [facility] Phosphorus, pl 7.3(H) 2.3 - 4.5 mg/dL [facility] Albumin 2.8(L) 3.5 - 5.0 g/dL [facility] Blood 10/22/2023 12:3 1 AM TREE SPECIALIST 10/22/2023 1:00 AM TREE SPECIALIST Byron Olvera NP LAB BLOOD ORDERABLES Fi nal Result Performing Organization Address [facility]/ZIP Co de Phone Number [facility] [address] Department [place] [address] * (ABNORMAL) CBC without differential (10/22/2023 12:31 AM TREE SPECIALIST) [facility] WBC 10.6(H) 3.8 - 9.9 K/cumm [facility] Hgb 8.5(L) 13.0 - 17.5 g/dL [facility] Hct 27.2(L) 38.9 - 50.3 % [facility] Plt 201 150 - 400 K/cumm [facility] MPV 11.2 9.1 - 12.3 fL [facility] RBC 2.88(L) 4.30 - 5.80 M/cumm [facility] MCV 94.4 81.3 - 96.4 fL [facility] MCH 29.5 27.1 - 33.3 pg [facility] MCHC 31.3(L) 32.3 - 35.7 g/dL [facility] RDW CV 15.8(H) 11.1 - 14.9 % [facility] RDW SD 54.0(H) 35.7 - 48.1 fL [facility] NRBC abs 0.02(H) 0.00 - 0.01 K/cumm [facility] Blood 10/22/2023 12:3 1 AM TREE SPECIALIST 10/22/2023 1:00 AM TREE SPECIALIST Byron Olvera NP LAB BLOOD ORDERABLES Fi nal Result [facility] [address] Department [place] [address] * (ABNORMAL) POCT glucose (10/21/2023 9:31 PM TREE SPECIALIST) [facility] Glucose, POC 249(H) 70 - 140 mg/dL [facility] Comment: For Glucose values <35 mg/dl when Hematocrit is >60 mg/dl,the test may not accurately detect significant hypoglycemia,and testing in the Laboratory should be considered if clinically indicated. Blood 10/21/2023 9:31 PM TREE SPECIALIST 10/21/2023 9:31 PM TREE SPECIALIST Jaqueline Valero MD LAB POCT ORDERABLES - APRIL CE Final Result Performing Organization Address [facility] de Phone Number [facility] [address] [facility] [place] [employer] [place] [address] * (ABNORMAL) POCT glucose (10/21/2023 5:16 PM TREE SPECIALIST) Glucose, POC 166(H) 70 - 140 mg/dL [facility] Comment: For Glucose values <35 mg/dl when Hematocrit is >60 mg/dl,the test may not accurately detect significant hypoglycemia,and testing in the Laboratory should be considered if clinically indicated. Blood 10/21/2023 5:16 PM TREE SPECIALIST 10/21/2023 5:16 PM TREE SPECIALIST Jaqueline Valero MD LAB POCT ORDERABLES - APRIL CE Final Result Performing Organization Address [facility] de Phone Number [facility] [address] [facility] [place] [address] * (ABNORMAL) POCT glucose (10/21/2023 12:29 PM TREE SPECIALIST) Glucose, POC 266(H) 70 - 140 mg/dL [facility] Comment: For Glucose values <35 mg/dl when Hematocrit is >60 mg/dl,the test may not accurately detect significant hypoglycemia,and testing in the Laboratory should be considered if clinically indicated. Blood 10/21/2023 12:2 9 PM TREE SPECIALIST 10/21/2023 12:29 PM TREE SPECIALIST Jaqueline Valero MD LAB POCT ORDERABLES - APRIL CE Final Result Performing Organization Address [facility] de Phone Number [facility] [address] [place] [place] [address] * (ABNORMAL) POCT glucose (10/21/2023 8:06 AM TREE SPECIALIST) Glucose, POC 294(H) 70 - 140 mg/dL [facility] Comment: For Glucose values <35 mg/dl when Hematocrit is >60 mg/dl,the test may not accurately detect significant hypoglycemia,and testing in the Laboratory should be considered if clinically indicated. Blood 10/21/2023 8:06 AM TREE SPECIALIST 10/21/2023 8:06 AM TREE SPECIALIST us Jaqueline Valero MD LAB POCT ORDERABLES - APRIL CE Final Result [facility] [address] Department [place] [address] * XR Chest 1 View - Portable - in AM (10/21/2023 6:51 AM TREE SPECIALIST) Anatomical Region Laterality Modality Body, Chest N/A Computed Radiogr aphy 10/21/2023 7:17 AM TREE SPECIALIST Impressions 10/21/2023 7:17 AM TREE SPECIALIST Small left effusion and bilateral lower lobe atelectasis. Electronically signed by: Eric Cuevas M.D. Narrative 10/21/2023 7:17 AM TREE SPECIALIST EXAMINATION: XR CHEST 1 VIEW DATE: 10/21/2023 [...] by: Eric Cuevas M.D. us Byron Olvera CLOTH PAINTER IMG XR PROCEDURES Final Result * ECG 12 lead (10/21/2023 4:39 AM TREE SPECIALIST) 10/21/2023 4:39 AM TREE SPECIALIST Narrative [facility] - 10/21/2023 8:34 AM TREE SPECIALIST Vent Rate: 100 bpm RR Interval: 599 msec ND Interval: 0 msec QRS Duration: 145 msec QT Interval: 394 msec QTC Interval: 451 msec P-R-T [place]: 0 - -9 - 132 degrees IMPRESSION: NORMAL SINUS RHYTHM [REASON: NORMAL P AXIS, ND, RATE \T\ RHYTHM] LEFT BUNDLE BRANCH BLOCK OCCASIONAL PVC Electronically Signed By: Jesus Huerta MD us Linda Oliva NP ECG ORDERABLES Final Result [facility] * eGFR (10/21/2023 1:40 AM TREE SPECIALIST) eGFR 5 mL/min/1. 73 m2 [facility] Comment: Interpretive Data Reference Interval [...] last reviewed 2021. Blood 10/21/2023 1:40 AM TREE SPECIALIST 10/21/2023 1:59 AM TREE SPECIALIST Byron Olvera NP LAB BLOOD ORDERABLES Fi nal Result Performing Organization Address [facility] de Phone Number [facility] [address] [place] [place] [address] * (ABNORMAL) Protime-INR (10/21/2023 1:40 AM TREE SPECIALIST) PT 54.3(H) 10.3 - 13.7 sec [facility] INR 4.76(H) 0.90 - 1.20 [facility] Comment: Interpretive data Oral anticoagulant therapeutic ranges: Venous thromboembolism prophylaxis or treatment: 2.0-3.0 CARDIOLOGY Standard range: 2.0-3.0 High-intensity range: 2.5-3.5 Refer to indication-specific guidelines for appropriate target ranges for prosthetic heart valve replacement. Current interpretive data was last revised on 2019. Blood 10/21/2023 1:40 AM TREE SPECIALIST 10/21/2023 1:58 AM TREE SPECIALIST Byron Olvera NP LAB BLOOD ORDERABLES Fi nal Result Performing Organization Address [facility] Co de Phone Number [facility] [address] [place] [address] * Magnesium (10/21/2023 1:40 AM TREE SPECIALIST) Magnesium 2.4 1.4 - 2.5 mg/dL [facility] Blood 10/21/2023 1:40 AM TREE SPECIALIST 10/21/2023 1:59 AM TREE SPECIALIST Byron Olvera NP LAB BLOOD ORDERABLES Fi nal Result Performing Organization Address City/[facility]/ZIP Co de Phone Number [facility] [address] [email or web address] [address] * (ABNORMAL) Renal function panel (10/21/2023 1:40 AM TREE SPECIALIST) Sodium 134(L) 135 - 145 mmol/L [facility] Potassium, pl 4.5 3.3 - 4.9 mmol/L [facility] Chloride 93(L) 97 - 110 mmol/L [facility] CO2 22 22 - 32 mmol/L [facility] Anion gap 19(H) 2 - 15 mmol/L [facility] BUN 81(H) 6 - 25 mg/dL [facility] Creatinine 11.40(H) 0.80 - 1.30 mg/dL [facility] Glucose 289(H) 70 - 199 mg/dL [facility] Comment: Interpretive Data Fasting glucose >/= [...] 2022. Calcium 8.6 8.5 - 10.3 mg/dL [facility] Phosphorus, pl 8.2(H) 2.3 - 4.5 mg/dL [facility] Albumin 2.7(L) 3.5 - 5.0 g/dL [facility] Blood 10/21/2023 1:40 AM TREE SPECIALIST 10/21/2023 1:59 AM TREE SPECIALIST Byron Olvera NP LAB BLOOD ORDERABLES Fi nal Result Performing Organization Address City/[facility]/ZIP Co de Phone Number [facility] [address] [email or web address] [address] * (ABNORMAL) CBC without differential (10/21/2023 1:40 AM TREE SPECIALIST) [facility] WBC 8.2 3.8 - 9.9 K/cumm [facility] Hgb 8.0(L) 13.0 - 17.5 g/dL [facility] Hct 25.6(L) 38.9 - 50.3 % [facility] Plt 185 150 - 400 K/cumm [facility] MPV 11.1 9.1 - 12.3 fL [facility] RBC 2.72(L) 4.30 - 5.80 M/cumm [facility] MCV 94.1 81.3 - 96.4 fL [facility] MCH 29.4 27.1 - 33.3 pg [facility] MCHC 31.3(L) 32.3 - 35.7 g/dL [facility] RDW CV 16.5(H) 11.1 - 14.9 % [facility] RDW SD 55.9(H) 35.7 - 48.1 fL [facility] NRBC abs 0.02(H) 0.00 - 0.01 K/cumm [facility] Blood 10/21/2023 1:40 AM TREE SPECIALIST 10/21/2023 1:59 AM TREE SPECIALIST Byron Olvera NP LAB BLOOD ORDERABLES Fi nal Result [facility] [address] Department [place] [address] * (ABNORMAL) POCT glucose (10/20/2023 9:24 PM TREE SPECIALIST) [facility] Glucose, POC 234(H) 70 - 140 mg/dL [facility] Comment: For Glucose values <35 mg/dl when Hematocrit is >60 mg/dl,the test may not accurately detect significant hypoglycemia,and testing in the Laboratory should be considered if clinically indicated. Blood 10/20/2023 9:24 PM TREE SPECIALIST 10/20/2023 9:24 PM TREE SPECIALIST us Jaqueline Valero MD LAB POCT ORDERABLES - APRIL CE Final Result Performing Organization Address [facility] Co de Phone Number [facility] [address] [facility] [place] [place] [address] * POCT glucose (10/20/2023 5:24 PM TREE SPECIALIST) [facility] Glucose, POC 89 70 - 140 mg/dL [facility] Comment: For Glucose values <35 mg/dl when Hematocrit is >60 mg/dl,the test may not accurately detect significant hypoglycemia,and testing in the Laboratory should be considered if clinically indicated. Blood 10/20/2023 5:24 PM TREE SPECIALIST 10/20/2023 5:24 PM TREE SPECIALIST us Jaqueline Valero MD LAB POCT ORDERABLES - APRIL CE Final Result Performing Organization Address [facility] Co de Phone Number [facility] [address] [place] [place] [address] * Critical Care (10/20/2023 12:45 PM TREE SPECIALIST) Narrative Kirsten Burns MD - 10/20/2023 12:45 PM TREE SPECIALIST Byron Olvera NP ? 10/21/2023 10:22 AM Critical Care Performed by: Byron Olvera NP Authorized by: Byron Olvera NP ?? CRITICAL CARE: ??Team: ??[facility] ??Shift: ??AM ??Level of [...] plan with the patient's team and other medical/oracle distribution consultant staff. This time was in addition to and separate from care provided by other practitioners on this day of service. ?? Byron Olvera NP IN CLINIC/BEDSIDE ORDER ROVERTO Final Result * POCT glucose (10/20/2023 11:47 AM TREE SPECIALIST) Glucose, POC 115 70 - 140 mg/dL [facility] Comment: For Glucose values <35 mg/dl when Hematocrit is >60 mg/dl,the test may not accurately detect significant hypoglycemia,and testing in the Laboratory should be considered if clinically indicated. Blood 10/20/2023 11:4 7 AM TREE SPECIALIST 10/20/2023 11:47 AM TREE SPECIALIST Result [facility] Jaqueline Valero MD LAB POCT ORDERABLES - APRIL CE Final Result Performing Organization Address [facility] de Phone Number [facility] [address] [facility] [place] [employer] [place] [address] * POCT glucose (10/20/2023 10:09 AM TREE SPECIALIST) Glucose, POC 87 70 - 140 mg/dL [facility] Comment: For Glucose values <35 mg/dl when Hematocrit is >60 mg/dl,the test may not accurately detect significant hypoglycemia,and testing in the Laboratory should be considered if clinically indicated. Blood 10/20/2023 10:0 9 AM TREE SPECIALIST 10/20/2023 10:09 AM TREE SPECIALIST Result [facility] Jaqueline Valero MD LAB POCT ORDERABLES - APRIL CE Final Result Performing Organization Address [facility] de Phone Number [facility] [address] [facility] [place] [place] [address] * POCT glucose (10/20/2023 9:15 AM TREE SPECIALIST) Glucose, POC 102 70 - 140 mg/dL [facility] Comment: For Glucose values <35 mg/dl when Hematocrit is >60 mg/dl,the test may not accurately detect significant hypoglycemia,and testing in the Laboratory should be considered if clinically indicated. Blood 10/20/2023 9:15 AM TREE SPECIALIST 10/20/2023 9:15 AM TREE SPECIALIST Result [facility] Jaqueline Valero MD LAB POCT ORDERABLES - APRIL CE Final Result Performing Organization Address [facility] Co de Phone Number [facility] [address] [facility] [place] [place] [address] * POCT glucose (10/20/2023 7:23 AM TREE SPECIALIST) Glucose, POC 109 70 - 140 mg/dL [facility] Comment: For Glucose values <35 mg/dl when Hematocrit is >60 mg/dl,the test may not accurately detect significant hypoglycemia,and testing in the Laboratory should be considered if clinically indicated. Blood 10/20/2023 7:23 AM TREE SPECIALIST 10/20/2023 7:23 AM TREE SPECIALIST Jaqueline Valero MD LAB POCT ORDERABLES - APRIL CE Final Result Performing Organization Address [facility] Co de Phone Number [facility] [address] [place] [place] [address] * XR Chest 1 View - Portable - in AM (10/20/2023 6:37 AM TREE SPECIALIST) Anatomical Region Laterality Modality Body, Chest N/A Computed Radiogr aphy 10/20/2023 7:51 AM TREE SPECIALIST Impressions 10/20/2023 7:51 AM TREE SPECIALIST Comparison is made to prior chest radiograph(s) [...] Vicki Suh M.D. Narrative 10/20/2023 7:51 AM TREE SPECIALIST EXAMINATION: XR CHEST 1 VIEW Procedure Note [...] signed by: Vicki Suh M.D. Byron Olvera CLOTH PAINTER IMG XR PROCEDURES Final Result * POCT glucose (10/20/2023 6:12 AM TREE SPECIALIST) Glucose, POC 119 70 - 140 mg/dL [facility] Comment: For Glucose values <35 mg/dl when Hematocrit is >60 mg/dl,the test may not accurately detect significant hypoglycemia,and testing in the Laboratory should be considered if clinically indicated. Blood 10/20/2023 6:12 AM TREE SPECIALIST 10/20/2023 6:12 AM TREE SPECIALIST Jaqueline Valero MD LAB POCT ORDERABLES - APRIL CE Final Result Performing Organization Address [facility] Co de Phone Number [facility] [address] [email or web address] [place], [place] [id number] * (ABNORMAL) POCT glucose (10/20/2023 3:57 AM TREE SPECIALIST) Glucose, POC 153(H) 70 - 140 mg/dL [facility] Comment: For Glucose values <35 mg/dl when Hematocrit is >60 mg/dl,the test may not accurately detect significant hypoglycemia,and testing in the Laboratory should be considered if clinically indicated. Blood 10/20/2023 3:57 AM TREE SPECIALIST 10/20/2023 3:57 AM TREE SPECIALIST Result [facility] Jaqueline Valero MD LAB POCT ORDERABLES - APRIL CE Final Result Performing Organization Address [facility] Co de Phone Number [facility] [address] [place] [place] [address] * Oxyhemoglobin, central venous (10/20/2023 3:22 AM TREE SPECIALIST) Pathologist [facility] Oxyhemoglobin, CV 70.0 % [facility] Comment: Interpretive Data No reference range established. Current interpretive data was last revised 2019. Blood 10/20/2023 3:22 AM TREE SPECIALIST 10/20/2023 3:26 AM TREE SPECIALIST Gamal Fox CLOTH PAINTER LAB BLOOD ORDERABLES Final Result Performing Organization Address [facility] Co de Phone Number [facility] [address] [place] [place] [address] * (ABNORMAL) aPTT (10/20/2023 3:22 AM TREE SPECIALIST) [facility] aPTT 114(H) 28 - 38 sec [facility] Comment: Interpretive Data Heparin therapeutic range: 66.0 - 100.0 seconds. Range based on correlation with therapeutic heparin activity range of 0.3 - 0.7 Units/mL. Current interpretive data was last revised on 2023. Blood 10/20/2023 3:22 AM TREE SPECIALIST 10/20/2023 3:28 AM TREE SPECIALIST Narrative [facility] - 10/20/2023 4:12 AM TREE SPECIALIST Draw STAT PTT 6 hrs after initiation of heparin infusion, draw STAT PTT 6 hours after each dose change, and every 6 hours until 2 consecutive PTTs are within therapeutic range. Once two consecutive PTT's are therapeutic (66-100 seconds), then draw PTT every AM until heparin is discontinued. Byron Olvera CLOTH PAINTER LAB BLOOD ORDERABLES Fi nal Result Performing Organization Address [facility] Co de Phone Number [facility] [address] Department [employer] [place], [place] [id number] * (ABNORMAL) POCT glucose (10/20/2023 3:21 AM TREE SPECIALIST) Pathologist [facility] Glucose, POC 156(H) 70 - 140 mg/dL [facility] Comment: For Glucose values <35 mg/dl when Hematocrit is >60 mg/dl,the test may not accurately detect significant hypoglycemia,and testing in the Laboratory should be considered if clinically indicated. Blood 10/20/2023 3:21 AM TREE SPECIALIST 10/20/2023 3:21 AM TREE SPECIALIST Jaqueline Valero MD LAB POCT ORDERABLES - APRIL CE Final Result Performing Organization Address [facility] Co de Phone Number [facility] [address] [place] [address] * (ABNORMAL) POCT glucose (10/20/2023 2:10 AM TREE SPECIALIST) Glucose, POC 164(H) 70 - 140 mg/dL [facility] Comment: For Glucose values <35 mg/dl when Hematocrit is >60 mg/dl,the test may not accurately detect significant hypoglycemia,and testing in the Laboratory should be considered if clinically indicated. Blood 10/20/2023 2:10 AM TREE SPECIALIST 10/20/2023 2:10 AM TREE SPECIALIST Result [facility] Jaqueline Valero MD LAB POCT ORDERABLES - APRIL CE Final Result Performing Organization Address [facility] de Phone Number [facility] [address] [place] [address] * POCT glucose (10/20/2023 12:57 AM TREE SPECIALIST) Glucose, POC 119 70 - 140 mg/dL [facility] Comment: For Glucose values <35 mg/dl when Hematocrit is >60 mg/dl,the test may not accurately detect significant hypoglycemia,and testing in the Laboratory should be considered if clinically indicated. Blood 10/20/2023 12:5 7 AM TREE SPECIALIST 10/20/2023 12:57 AM TREE SPECIALIST Jaqueline Valero MD LAB POCT ORDERABLES - APRIL CE Final Result Performing Organization Address [facility] Co de Phone Number [facility] [address] [place] [address] * eGFR (10/20/2023 12:21 AM TREE SPECIALIST) eGFR 5 mL/min/1. 73 m2 [facility] Comment: Interpretive Data Reference Interval [...] reviewed 2021. Blood 10/20/2023 12:2 1 AM TREE SPECIALIST 10/20/2023 12:43 AM TREE SPECIALIST us Dawna Castellanos CLOTH PAINTER LAB BLOOD ORDERABLES Ann Marie l Result [facility] [address] Department [place] [address] * Oxyhemoglobin, central venous (10/20/2023 12:21 AM TREE SPECIALIST) Oxyhemoglobin, CV 51.0 % [facility] Comment: Interpretive Data No reference range established. Current interpretive data was last revised 2019. Blood 10/20/2023 12:2 1 AM TREE SPECIALIST 10/20/2023 12:35 AM TREE SPECIALIST Dawna Castellanos CLOTH PAINTER LAB BLOOD ORDERABLES Ann Marie l Result [facility] [address] [facility] [place] [employer] [place] [address] * (ABNORMAL) Protime-INR (10/20/2023 12:21 AM TREE SPECIALIST) PT 25.5(H) 10.3 - 13.7 sec [facility] INR 2.24(H) 0.90 - 1.20 [facility] Comment: Interpretive data Oral anticoagulant therapeutic ranges: Venous thromboembolism prophylaxis or treatment: 2.0-3.0 CARDIOLOGY Standard range: 2.0-3.0 High-intensity range: 2.5-3.5 Refer to indication-specific guidelines for appropriate target ranges for prosthetic heart valve replacement. Current interpretive data was last revised on 2019. Blood 10/20/2023 12:2 1 AM TREE SPECIALIST 10/20/2023 12:43 AM TREE SPECIALIST Byron Olvera CLOTH PAINTER LAB BLOOD ORDERABLES Fi nal Result Performing Organization Address [facility] Co de Phone Number [facility] [address] [facility] [place] [place] [address] * Magnesium (10/20/2023 12:21 AM TREE SPECIALIST) Pathologist [facility] Magnesium 2.4 1.4 - 2.5 mg/dL [facility] Blood 10/20/2023 12:2 1 AM TREE SPECIALIST 10/20/2023 12:43 AM TREE SPECIALIST Byron Olvera CLOTH PAINTER LAB BLOOD ORDERABLES Fi nal Result Performing Organization Address City/[facility]/ZIP Co de Phone Number [facility] [address] [place] [place] [address] * (ABNORMAL) Calcium, ionized (10/20/2023 12:21 AM TREE SPECIALIST) Calcium, Ionized 4.38(L) 4.50 - 5.10 mg/dL [facility] Blood 10/20/2023 12:2 1 AM TREE SPECIALIST 10/20/2023 12:35 AM TREE SPECIALIST us Byron Olvera CLOTH PAINTER LAB BLOOD ORDERABLES nal Result [facility] [address] Department [place] [address] * (ABNORMAL) Renal function panel (10/20/2023 12:21 AM TREE SPECIALIST) Pathologist [facility] Sodium 137 135 - 145 mmol/L [facility] Potassium, pl 4.4 3.3 - 4.9 mmol/L [facility] Chloride 96(L) 97 - 110 mmol/L [facility] CO2 21(L) 22 - 32 mmol/L [facility] Anion gap 20(H) 2 - 15 mmol/L [facility] BUN 77(H) 6 - 25 mg/dL [facility] Creatinine 11.28(H) 0.80 - 1.30 mg/dL [facility] Glucose 105 70 - 199 mg/dL [facility] Comment: Interpretive Data Fasting glucose >/= [...] 2022. Calcium 8.9 8.5 - 10.3 mg/dL [facility] Phosphorus, pl 8.9(H) 2.3 - 4.5 mg/dL [facility] Albumin 2.8(L) 3.5 - 5.0 g/dL [facility] Blood 10/20/2023 12:2 1 AM TREE SPECIALIST 10/20/2023 12:43 AM TREE SPECIALIST Byron Olvera NP LAB BLOOD ORDERABLES Fi nal Result Performing Organization Address [facility] Co de Phone Number [facility] [address] [email or web address] [address] * (ABNORMAL) CBC without differential (10/20/2023 12:21 AM TREE SPECIALIST) [facility] WBC 8.8 3.8 - 9.9 K/cumm [facility] Hgb 8.3(L) 13.0 - 17.5 g/dL [facility] Hct 26.2(L) 38.9 - 50.3 % [facility] Plt 149(L) 150 - 400 K/cumm [facility] MPV 11.1 9.1 - 12.3 fL [facility] RBC 2.76(L) 4.30 - 5.80 M/cumm [facility] MCV 94.9 81.3 - 96.4 fL [facility] MCH 30.1 27.1 - 33.3 pg [facility] MCHC 31.7(L) 32.3 - 35.7 g/dL [facility] RDW CV 16.5(H) 11.1 - 14.9 % [facility] RDW SD 56.3(H) 35.7 - 48.1 fL [facility] NRBC abs 0.00 0.00 - 0.01 K/cumm [facility] Blood 10/20/2023 12:2 1 AM TREE SPECIALIST 10/20/2023 12:43 AM TREE SPECIALIST Byron Olvera NP LAB BLOOD ORDERABLES Fi nal Result Performing Organization Address City/[facility]/ZIP Co de Phone Number [facility] [address] Department [employer] [place], [place] [phone] * POCT glucose (10/20/2023 12:20 AM TREE SPECIALIST) Glucose, POC 111 70 - 140 mg/dL [facility] Comment: For Glucose values <35 mg/dl when Hematocrit is >60 mg/dl,the test may not accurately detect significant hypoglycemia,and testing in the Laboratory should be considered if clinically indicated. Blood 10/20/2023 12:2 0 AM TREE SPECIALIST 10/20/2023 12:20 AM TREE SPECIALIST Jaqueline Valero MD LAB POCT ORDERABLES - APRIL CE Final Result Performing Organization Address [facility] de Phone Number [facility] [address] [place] [address] * POCT glucose (10/19/2023 11:03 PM TREE SPECIALIST) Glucose, POC 111 70 - 140 mg/dL [facility] Comment: For Glucose values <35 mg/dl when Hematocrit is >60 mg/dl,the test may not accurately detect significant hypoglycemia,and testing in the Laboratory should be considered if clinically indicated. Blood 10/19/2023 11:0 3 PM TREE SPECIALIST 10/19/2023 11:03 PM TREE SPECIALIST Jaqueline Valero MD LAB POCT ORDERABLES - APRIL CE Final Result Performing Organization Address [facility] de Phone Number [facility] [address] [place] [address] * POCT glucose (10/19/2023 10:01 PM TREE SPECIALIST) Glucose, POC 120 70 - 140 mg/dL [facility] Comment: For Glucose values <35 mg/dl when Hematocrit is >60 mg/dl,the test may not accurately detect significant hypoglycemia,and testing in the Laboratory should be considered if clinically indicated. Blood 10/19/2023 10:0 1 PM TREE SPECIALIST 10/19/2023 10:01 PM TREE SPECIALIST Jaqueline Valero MD LAB POCT ORDERABLES - APRIL CE Final Result Performing Organization Address [facility]/State/ZIP Co de Phone Number [facility] [address] [facility] [place] [employer] [place] [address] * (ABNORMAL) aPTT (10/19/2023 9:47 PM TREE SPECIALIST) Pathologist [facility] aPTT 94(H) 28 - 38 sec [facility] Comment: Interpretive Data Heparin therapeutic range: 66.0 - 100.0 seconds. Range based on correlation with therapeutic heparin activity range of 0.3 - 0.7 Units/mL. Current interpretive data was last revised on 2023. Blood 10/19/2023 9:47 PM TREE SPECIALIST 10/19/2023 9:54 PM TREE SPECIALIST Narrative [facility] - 10/19/2023 10:17 PM TREE SPECIALIST Draw STAT PTT 6 hrs after initiation of heparin infusion, draw STAT PTT 6 hours after each dose change, and every 6 hours until 2 consecutive PTTs are within therapeutic range. Once two consecutive PTT's are therapeutic (66-100 seconds), then draw PTT every AM until heparin is discontinued. us Byron Olvera NP LAB BLOOD ORDERABLES Fi nal Result Performing Organization Address [facility] Co de Phone Number [facility] [address] [place] [address] * (ABNORMAL) POCT glucose (10/19/2023 9:15 PM TREE SPECIALIST) [facility] Glucose, POC 143(H) 70 - 140 mg/dL [facility] Comment: For Glucose values <35 mg/dl when Hematocrit is >60 mg/dl,the test may not accurately detect significant hypoglycemia,and testing in the Laboratory should be considered if clinically indicated. Blood 10/19/2023 9:15 PM TREE SPECIALIST 10/19/2023 9:15 PM TREE SPECIALIST Jaqueline Valero MD LAB POCT ORDERABLES - APRIL CE Final Result Performing Organization Address [facility] Co de Phone Number [facility] [address] [facility] [place] [employer] [place] [address] * (ABNORMAL) POCT glucose (10/19/2023 8:12 PM TREE SPECIALIST) Glucose, POC 156(H) 70 - 140 mg/dL [facility] Comment: For Glucose values <35 mg/dl when Hematocrit is >60 mg/dl,the test may not accurately detect significant hypoglycemia,and testing in the Laboratory should be considered if clinically indicated. Blood 10/19/2023 8:12 PM TREE SPECIALIST 10/19/2023 8:12 PM TREE SPECIALIST Jaqueline Valero MD LAB POCT ORDERABLES - APRIL CE Final Result Performing Organization Address [facility] Co de Phone Number [facility] [address] [facility] [place] [employer] [place] [address] * POCT glucose (10/19/2023 6:13 PM TREE SPECIALIST) Glucose, POC 94 70 - 140 mg/dL [facility] Comment: For Glucose values <35 mg/dl when Hematocrit is >60 mg/dl,the test may not accurately detect significant hypoglycemia,and testing in the Laboratory should be considered if clinically indicated. Blood 10/19/2023 6:13 PM TREE SPECIALIST 10/19/2023 6:13 PM TREE SPECIALIST Jaqueline Valero MD LAB POCT ORDERABLES - APRIL CE Final Result Performing Organization Address City/[facility] Co de Phone Number [facility] [address] [facility] [place] [employer] [place] [address] * POCT glucose (10/19/2023 5:24 PM TREE SPECIALIST) Glucose, POC 90 70 - 140 mg/dL [facility] Comment: For Glucose values <35 mg/dl when Hematocrit is >60 mg/dl,the test may not accurately detect significant hypoglycemia,and testing in the Laboratory should be considered if clinically indicated. Blood 10/19/2023 5:24 PM TREE SPECIALIST 10/19/2023 5:24 PM TREE SPECIALIST us Jaqueline Valero MD LAB POCT ORDERABLES - APRIL CE Final Result [facility] [address] Department [place] [address] * XR Chest 1 View (10/19/2023 4:29 PM TREE SPECIALIST) Anatomical Region Laterality Modality Body, Chest N/A Computed Radiogr aphy 10/19/2023 4:32 PM TREE SPECIALIST Impressions 10/19/2023 4:32 PM TREE SPECIALIST Comparison made to radiograph 10/19/2023. Right internal [...] Trace Barrow M.D. Narrative 10/19/2023 4:32 PM TREE SPECIALIST EXAMINATION: XR CHEST 1 VIEW HISTORY: ??Chest [...] signed by: Trace Barrow M.D. Dawna Castellanos CLOTH PAINTER IMG XR PROCEDURES Final R esult * POCT glucose (10/19/2023 4:25 PM TREE SPECIALIST) Glucose, POC 113 70 - 140 mg/dL [facility] Comment: For Glucose values <35 mg/dl when Hematocrit is >60 mg/dl,the test may not accurately detect significant hypoglycemia,and testing in the Laboratory should be considered if clinically indicated. Blood 10/19/2023 4:25 PM TREE SPECIALIST 10/19/2023 4:25 PM TREE SPECIALIST Jaqueline Valero MD LAB POCT ORDERABLES - APRIL CE Final Result Performing Organization Address [facility] de Phone Number [facility] [address] Department [place] [address] * ECG 12 lead (10/19/2023 3:21 PM TREE SPECIALIST) 10/19/2023 3:21 PM TREE SPECIALIST Narrative [facility] - 10/20/2023 9:37 AM TREE SPECIALIST Vent Rate: 78 bpm RR Interval: 769 msec ND Interval: 264 msec QRS Duration: 145 msec QT Interval: 426 msec QTC Interval: 459 msec P-R-T [place]: 47 - -19 - 115 degrees IMPRESSION: PROBABLE SINUS RHYTHM WITH FIRST DEGREE AV BLOCK FREQUENT SUPRAVENTRICULAR PREMATURE COMPLEXES IN A BIGEMINAL PATTERN INTRAVENTRICULAR CONDUCTION DELAY NONSPECIFIC T-WAVE CHANGES ABNORMAL ECG Electronically Signed By: Abelardo Randle MD Dawna Castellanos CLOTH PAINTER ECG ORDERABLES Final Res ult Performing Organization Address [facility] de Phone Number [facility] [employer] [facility] * XR Kub (10/19/2023 2:49 PM TREE SPECIALIST) Anatomical Region Laterality Modality Body, Abdomen N/A Computed Radiogr aphy 10/19/2023 3:00 PM TREE SPECIALIST Impressions 10/19/2023 3:00 PM TREE SPECIALIST FINDINGS/IMPRESSION: Postsurgical changes in the chest. ??Epicardial pacer wires overlie the abdomen and chest. ??Chest tube/mediastinal drains overlie the abdomen. ??Nguyen catheter superimposes the expected location of the urinary bladder. There is no dilatation of small or large bowel seen, although exam is limited secondary to body habitus. Electronically signed by: DO Luis Parker 10/19/2023 3:00 PM TREE SPECIALIST EXAM: ??XR KUB, 10/19/2023 1:50 PM HISTORY: [...] Result * (ABNORMAL) aPTT (10/19/2023 2:44 PM TREE SPECIALIST) aPTT 59(H) 28 - 38 sec [facility] Comment: Interpretive Data Heparin therapeutic range: 66.0 - 100.0 seconds. Range based on correlation with therapeutic heparin activity range of 0.3 - 0.7 Units/mL. Current interpretive data was last revised on 2023. Blood 10/19/2023 2:44 PM TREE SPECIALIST 10/19/2023 2:48 PM TREE SPECIALIST Narrative [facility] - 10/19/2023 3:02 PM TREE SPECIALIST Draw STAT PTT 6 hrs after initiation of heparin infusion, draw STAT PTT 6 hours after each dose change, and every 6 hours until 2 consecutive PTTs are within therapeutic range. Once two consecutive PTT's are therapeutic (66-100 seconds), then draw PTT every AM until heparin is discontinued. Byron Olvera NP LAB BLOOD ORDERABLES [facility] Result [facility] [address] Department [place] [address] * (ABNORMAL) Hepatic function panel (10/19/2023 2:44 PM TREE SPECIALIST) Pathologist [facility] Bilirubin, total 0.3 0.1 - 1.2 mg/dL [facility] Bilirubin, direct <0.2 0.1 - 0.3 mg/dL [facility] Protein, pl 5.2(L) 6.5 - 8.5 g/dL [facility] Albumin 3.0(L) 3.5 - 5.0 g/dL [facility] Alk phos 104 40 - 130 Units/L [facility] ALT 9 7 - 55 Units/L [facility] AST 39 10 - 50 Units/L [facility] Blood 10/19/2023 2:44 PM TREE SPECIALIST 10/19/2023 2:48 PM TREE SPECIALIST Kirsten Burns MD LAB BLOOD ORDERABLES Fin al Result Performing Organization Address [facility] Co de Phone Number [facility] [address] [facility] [place] [employer] [place] [address] * (ABNORMAL) Lipase (10/19/2023 2:44 PM TREE SPECIALIST) [facility] Lipase 7(L) 10 - 99 Units/L [facility] Blood 10/19/2023 2:44 PM TREE SPECIALIST 10/19/2023 2:48 PM TREE SPECIALIST Result [facility] Kirsten Burns MD LAB BLOOD ORDERABLES Fin al Result Performing Organization Address [facility] [facility] Co de Phone Number [facility] [address] [facility] [place] [place] [address] * (ABNORMAL) Amylase (10/19/2023 2:44 PM TREE SPECIALIST) [facility] Amylase <3(L) 30 - 99 Units/L [facility] Blood 10/19/2023 2:44 PM TREE SPECIALIST 10/19/2023 2:48 PM TREE SPECIALIST Result [facility] Kirsten Burns MD LAB BLOOD ORDERABLES Fin al Result Performing Organization Address [facility] Co de Phone Number [facility] [address] [facility] [place] [place] [address] * (ABNORMAL) POCT glucose (10/19/2023 2:40 PM TREE SPECIALIST) Glucose, POC 195(H) 70 - 140 mg/dL [facility] Comment: For Glucose values <35 mg/dl when Hematocrit is >60 mg/dl,the test may not accurately detect significant hypoglycemia,and testing in the Laboratory should be considered if clinically indicated. Blood 10/19/2023 2:40 PM TREE SPECIALIST 10/19/2023 2:40 PM TREE SPECIALIST Jaqueline Valero MD LAB POCT ORDERABLES - APRIL CE Final Result Performing Organization Address [facility] Co de Phone Number [facility] [address] [facility] [place] [place] [address] * POCT glucose (10/19/2023 12:25 PM TREE SPECIALIST) Glucose, POC 114 70 - 140 mg/dL [facility] Comment: For Glucose values <35 mg/dl when Hematocrit is >60 mg/dl,the test may not accurately detect significant hypoglycemia,and testing in the Laboratory should be considered if clinically indicated. Blood 10/19/2023 12:2 5 PM TREE SPECIALIST 10/19/2023 12:25 PM TREE SPECIALIST Jaqueline Valero MD LAB POCT ORDERABLES - APRIL CE Final Result [facility] [address] [place] [address] * POCT glucose (10/19/2023 11:12 AM TREE SPECIALIST) Glucose, POC 116 70 - 140 mg/dL [facility] Comment: For Glucose values <35 mg/dl when Hematocrit is >60 mg/dl,the test may not accurately detect significant hypoglycemia,and testing in the Laboratory should be considered if clinically indicated. Blood 10/19/2023 11:1 2 AM TREE SPECIALIST 10/19/2023 11:12 AM TREE SPECIALIST Jaqueline Valero MD LAB POCT ORDERABLES - APRIL CE Final Result Performing Organization Address [facility] Co de Phone Number [facility] [address] [facility] [place] [address] * (ABNORMAL) POCT glucose (10/19/2023 10:54 AM TREE SPECIALIST) Glucose, POC 57(L) 70 - 140 mg/dL [facility] Comment: For Glucose values <35 mg/dl when Hematocrit is >60 mg/dl,the test may not accurately detect significant hypoglycemia,and testing in the Laboratory should be considered if clinically indicated. Blood 10/19/2023 10:5 4 AM TREE SPECIALIST 10/19/2023 10:54 AM TREE SPECIALIST Jaqueline Valero MD LAB POCT ORDERABLES - APRIL CE Final Result Performing Organization Address [facility] de Phone Number [facility] [address] [facility] [place] [address] * POCT glucose (10/19/2023 9:04 AM TREE SPECIALIST) Glucose, POC 82 70 - 140 mg/dL [facility] Comment: For Glucose values <35 mg/dl when Hematocrit is >60 mg/dl,the test may not accurately detect significant hypoglycemia,and testing in the Laboratory should be considered if clinically indicated. Blood 10/19/2023 9:04 AM TREE SPECIALIST 10/19/2023 9:04 AM TREE SPECIALIST Jaqueline Valero MD LAB POCT ORDERABLES - APRIL CE Final Result Performing Organization Address [facility] Co de Phone Number [facility] [address] [place] [place] [address] * (ABNORMAL) aPTT (10/19/2023 8:58 AM TREE SPECIALIST) aPTT 46(H) 28 - 38 sec [facility] Comment: Interpretive Data Heparin therapeutic range: 66.0 - 100.0 seconds. Range based on correlation with therapeutic heparin activity range of 0.3 - 0.7 Units/mL. Current interpretive data was last revised on 2023. Blood 10/19/2023 8:58 AM TREE SPECIALIST 10/19/2023 9:28 AM TREE SPECIALIST Narrative [facility] - 10/19/2023 9:51 AM TREE SPECIALIST Draw STAT PTT 6 hrs after initiation of heparin infusion, draw STAT PTT 6 hours after each dose change, and every 6 hours until 2 consecutive PTTs are within therapeutic range. Once two consecutive PTT's are therapeutic (66-100 seconds), then draw PTT every AM until heparin is discontinued. Byron Olvera CLOTH PAINTER LAB BLOOD ORDERABLES Fi nal Result Performing Organization Address [facility] Co de Phone Number [facility] [address] [email or web address] [address] * Oxyhemoglobin, central venous (10/19/2023 8:58 AM TREE SPECIALIST) [facility] Oxyhemoglobin, CV 70.1 % [facility] Comment: Interpretive Data No reference range established. Current interpretive data was last revised 2019. Blood 10/19/2023 8:58 AM TREE SPECIALIST 10/19/2023 9:16 AM TREE SPECIALIST Narrative [facility] - 10/19/2023 9:17 AM TREE SPECIALIST While on [facility] Dawna Castellanos CLOTH PAINTER LAB BLOOD ORDERABLES Ann Marie l Result Performing Organization Address City/[facility]/ZIP Co de Phone Number [facility] [address] Department [employer] [address] * (ABNORMAL) POCT glucose (10/19/2023 7:19 AM TREE SPECIALIST) [facility] Glucose, POC 150(H) 70 - 140 mg/dL [facility] Comment: For Glucose values <35 mg/dl when Hematocrit is >60 mg/dl,the test may not accurately detect significant hypoglycemia,and testing in the Laboratory should be considered if clinically indicated. Blood 10/19/2023 7:19 AM TREE SPECIALIST 10/19/2023 7:19 AM TREE SPECIALIST Jaqueline Valero MD LAB POCT ORDERABLES - APRIL CE Final Result Performing Organization Address [facility] Co de Phone Number [facility] [address] Department of [employer] [place], [place] [id number] * Lactate (10/19/2023 7:09 AM TREE SPECIALIST) Lactate 1.4 0.7 - 2.0 mmol/L [facility] Blood 10/19/2023 7:09 AM TREE SPECIALIST 10/19/2023 7:22 AM TREE SPECIALIST Dawna Castellanos CLOTH PAINTER LAB BLOOD ORDERABLES Ann Marie l Result Performing Organization Address [facility] Co de Phone Number [facility] [address] Department of [employer] [place], [place] [phone] * Oxyhemoglobin, central venous (10/19/2023 7:09 AM TREE SPECIALIST) Oxyhemoglobin, CV 96.5 % [facility] Comment: Interpretive Data No reference range established. Current interpretive data was last revised 2019. Blood 10/19/2023 7:09 AM TREE SPECIALIST 10/19/2023 7:22 AM TREE SPECIALIST Narrative [facility] - 10/19/2023 7:24 AM TREE SPECIALIST While on [facility] Dawna Castellanos CLOTH PAINTER LAB BLOOD ORDERABLES Ann Marie l Result Performing Organization Address [facility] Co de Phone Number [facility] [address] Department of [employer] [place], [place] [id number] * Critical Care (10/19/2023 6:57 AM TREE SPECIALIST) Narrative Kirsten Burns MD - 10/19/2023 6:57 AM TREE SPECIALIST Dawna Castellanos NP ? 10/19/2023 ??2:12 PM Critical Care Performed by: Dawna Castellanos NP Authorized by: Dawna Castellanos NP ?? CRITICAL CARE: ??Team: ??[facility] CT ??Shift: ??AM ??Level of [...] plan with the ICU team and other medical/oracle distribution consultant staff, making frequent assessments and decisions [...] * (ABNORMAL) POCT glucose (10/19/2023 6:57 AM TREE SPECIALIST) [facility] Glucose, POC 147(H) 70 - 140 mg/dL [facility] Comment: For Glucose values <35 mg/dl when Hematocrit is >60 mg/dl,the test may not accurately detect significant hypoglycemia,and testing in the Laboratory should be considered if clinically indicated. Blood 10/19/2023 6:57 AM TREE SPECIALIST 10/19/2023 6:57 AM TREE SPECIALIST Jaqueline Valero MD LAB POCT ORDERABLES - APRIL CE Final Result [facility] [address] Department [place] [address] * XR Chest 1 View - Portable - in AM (10/19/2023 6:27 AM TREE SPECIALIST) Anatomical Region Laterality Modality Body, Chest N/A Computed Radiogr aphy 10/19/2023 7:36 AM TREE SPECIALIST Impressions 10/19/2023 7:36 AM TREE SPECIALIST Comparison is made to 10/10/2023. ??Right internal jugular catheter tip overlies the superior vena cava, unchanged in position. ??The Racine-Daniel catheter has been removed. ??Sternotomy wires and [...] John Bruno M.D. Narrative 10/19/2023 7:36 AM TREE SPECIALIST EXAMINATION: Chest 1 view frontal HISTORY: Shortness of breath Procedure Note John Bruno MD - 10/19/2023 EXAMINATION: Chest 1 view frontal HISTORY: Shortness of breath IMPRESSION: Comparison is made to 10/10/2023. Right internal jugular catheter tip overlies the superior vena cava, unchanged in position. The Racine-Daniel catheter has been removed. Sternotomy wires and [...] * (ABNORMAL) POCT glucose (10/19/2023 6:06 AM TREE SPECIALIST) Glucose, POC 163(H) 70 - 140 mg/dL [facility] Comment: For Glucose values <35 mg/dl when Hematocrit is >60 mg/dl,the test may not accurately detect significant hypoglycemia,and testing in the Laboratory should be considered if clinically indicated. Blood 10/19/2023 6:06 AM TREE SPECIALIST 10/19/2023 6:06 AM TREE SPECIALIST Jaqueline Valero MD LAB POCT ORDERABLES - APRIL CE Final Result Performing Organization Address [facility] de Phone Number [facility] [address] [facility] [place] [place] [address] * (ABNORMAL) POCT glucose (10/19/2023 5:10 AM TREE SPECIALIST) Glucose, POC 191(H) 70 - 140 mg/dL [facility] Comment: For Glucose values <35 mg/dl when Hematocrit is >60 mg/dl,the test may not accurately detect significant hypoglycemia,and testing in the Laboratory should be considered if clinically indicated. Blood 10/19/2023 5:10 AM TREE SPECIALIST 10/19/2023 5:10 AM TREE SPECIALIST Jaqueline Valero MD LAB POCT ORDERABLES - APRIL CE Final Result Performing Organization Address [facility] de Phone Number [facility] [address] [facility] [place] [place] [address] * (ABNORMAL) aPTT (10/19/2023 4:14 AM TREE SPECIALIST) aPTT 50(H) 28 - 38 sec [facility] Comment: Interpretive Data Heparin therapeutic range: 66.0 - 100.0 seconds. Range based on correlation with therapeutic heparin activity range of 0.3 - 0.7 Units/mL. Current interpretive data was last revised on 2023. Blood 10/19/2023 4:14 AM TREE SPECIALIST 10/19/2023 4:27 AM TREE SPECIALIST Narrative [facility] - 10/19/2023 5:01 AM TREE SPECIALIST Draw STAT PTT 6 hrs after initiation of heparin infusion, draw STAT PTT 6 hours after each dose change, and every 6 hours until 2 consecutive PTTs are within therapeutic range. Once two consecutive PTT's are therapeutic (46-70 seconds), then draw PTT every AM until heparin is discontinued. Jaqueline Valero MD LAB BLOOD ORDERABLES Final Result Performing Organization Address [facility] Co de Phone Number [facility] [address] [facility] [place] [place] [address] * (ABNORMAL) POCT glucose (10/19/2023 4:03 AM TREE SPECIALIST) Glucose, POC 175(H) 70 - 140 mg/dL [facility] Comment: For Glucose values <35 mg/dl when Hematocrit is >60 mg/dl,the test may not accurately detect significant hypoglycemia,and testing in the Laboratory should be considered if clinically indicated. Blood 10/19/2023 4:03 AM TREE SPECIALIST 10/19/2023 4:03 AM TREE SPECIALIST Result [facility] Jaqueline Valero MD LAB POCT ORDERABLES - APRIL CE Final Result Performing Organization Address [facility] de Phone Number [facility] [address] [facility] [place] [place] [address] * (ABNORMAL) POCT glucose (10/19/2023 2:56 AM TREE SPECIALIST) Glucose, POC 177(H) 70 - 140 mg/dL [facility] Comment: For Glucose values <35 mg/dl when Hematocrit is >60 mg/dl,the test may not accurately detect significant hypoglycemia,and testing in the Laboratory should be considered if clinically indicated. Blood 10/19/2023 2:56 AM TREE SPECIALIST 10/19/2023 2:56 AM TREE SPECIALIST Result [facility] Jaqueline Valero MD LAB POCT ORDERABLES - APRIL CE Final Result Performing Organization Address [facility] Co de Phone Number [facility] [address] [facility] [place] [address] * eGFR (10/19/2023 2:11 AM TREE SPECIALIST) eGFR 5 mL/min/1. 73 m2 [facility] Comment: Interpretive Data Reference Interval Normal [...] reviewed 2021. Blood 10/19/2023 2:1 1 AM TREE SPECIALIST 10/19/2023 2:23 AM TREE SPECIALIST us Dawna Castellanos CLOTH PAINTER LAB BLOOD ORDERABLES Ann Marie l Result [facility] [address] Department [place] [address] * (ABNORMAL) Blood gas, arterial (10/19/2023 2:11 AM TREE SPECIALIST) pH, Art 7.28(L) 7.35 - 7.45 [facility] PCO2, Arterial 44 35 - 45 mmHg [facility] PO2, Arterial 130(H) 83 - 108 mmHg [facility] HCO3 Art (Calculated) 21 20 - 30 mmol/L [facility] BE, art -6 mmol/L [facility] Comment: Interpretive Data No Reference Range Established Current Interpretive Data was last revised on 2017 O2 Sat Art (Calculated) 99(H) 94 - 98 % [facility] Blood 10/19/2023 2:11 AM TREE SPECIALIST 10/19/2023 2:15 AM TREE SPECIALIST Gamal Fox CLOTH PAINTER LAB BLOOD ORDERABLES Final Result Performing Organization Address [facility]/ZIP Co de Phone Number [facility] [address] [facility] [employer] [place], [place] [phone] * Oxyhemoglobin, central venous (10/19/2023 2:11 AM TREE SPECIALIST) Oxyhemoglobin, CV 79.0 % [facility] Comment: Interpretive Data No reference range established. Current interpretive data was last revised 2019. Blood 10/19/2023 2:11 AM TREE SPECIALIST 10/19/2023 2:15 AM TREE SPECIALIST Dawna Castellanos CLOTH PAINTER LAB BLOOD ORDERABLES Ann Marie l Result Performing Organization Address [facility] Co de Phone Number [facility] [address] [email or web address] [address] * Protime-INR (10/19/2023 2:11 AM TREE SPECIALIST) PT 12.8 10.3 - 13.7 sec [facility] INR 1.12 0.90 - 1.20 [facility] Comment: Interpretive data Oral anticoagulant therapeutic ranges: Venous thromboembolism prophylaxis or treatment: 2.0-3.0 CARDIOLOGY Standard range: 2.0-3.0 High-intensity range: 2.5-3.5 Refer to indication-specific guidelines for appropriate target ranges for prosthetic heart valve replacement. Current interpretive data was last revised on 2019. Blood 10/19/2023 2:11 AM TREE SPECIALIST 10/19/2023 2:23 AM TREE SPECIALIST Byron Olvera CLOTH PAINTER LAB BLOOD ORDERABLES Fi nal Result Performing Organization Address City/[facility] Co de Phone Number [facility] [address] [facility] [place] [employer] [place] [address] * Magnesium (10/19/2023 2:11 AM TREE SPECIALIST) Magnesium 2.5 1.4 - 2.5 mg/dL [facility] Blood 10/19/2023 2:11 AM TREE SPECIALIST 10/19/2023 2:23 AM TREE SPECIALIST Byron Olvera CLOTH PAINTER LAB BLOOD ORDERABLES Fi nal Result Performing Organization Address [facility] Co de Phone Number [facility] [address] [facility] [place] [address] * Calcium, ionized (10/19/2023 2:11 AM TREE SPECIALIST) Calcium, Ionized 4.69 4.50 - 5.10 mg/dL [facility] Blood 10/19/2023 2:11 AM TREE SPECIALIST 10/19/2023 2:15 AM TREE SPECIALIST Byron Olvera CLOTH PAINTER LAB BLOOD ORDERABLES Fi nal Result Performing Organization Address [facility] Co de Phone Number [facility] [address] [facility] [place] [place] [address] * (ABNORMAL) Renal function panel (10/19/2023 2:11 AM TREE SPECIALIST) Sodium 138 135 - 145 mmol/L [facility] Potassium, pl 4.4 3.3 - 4.9 mmol/L [facility] Chloride 97 97 - 110 mmol/L [facility] CO2 21(L) 22 - 32 mmol/L [facility] Anion gap 20(H) 2 - 15 mmol/L [facility] BUN 74(H) 6 - 25 mg/dL [facility] Creatinine 10.85(H) 0.80 - 1.30 mg/dL [facility] Glucose 188 70 - 199 mg/dL [facility] Comment: Interpretive Data Fasting glucose >/= [...] 2022. Calcium 9.0 8.5 - 10.3 mg/dL [facility] Phosphorus, pl 8.3(H) 2.3 - 4.5 mg/dL [facility] Albumin 3.1(L) 3.5 - 5.0 g/dL [facility] Blood 10/19/2023 2:11 AM TREE SPECIALIST 10/19/2023 2:23 AM TREE SPECIALIST us Byron Olvera NP LAB BLOOD ORDERABLES nal Result [facility] [address] Department [place] [address] * (ABNORMAL) CBC without differential (10/19/2023 2:11 AM TREE SPECIALIST) WBC 8.9 3.8 - 9.9 K/cumm [facility] Hgb 8.7(L) 13.0 - 17.5 g/dL [facility] Hct 27.4(L) 38.9 - 50.3 % [facility] Plt 157 150 - 400 K/cumm [facility] MPV 11.0 9.1 - 12.3 fL [facility] RBC 2.91(L) 4.30 - 5.80 M/cumm [facility] MCV 94.2 81.3 - 96.4 fL [facility] MCH 29.9 27.1 - 33.3 pg [facility] MCHC 31.8(L) 32.3 - 35.7 g/dL [facility] RDW CV 16.4(H) 11.1 - 14.9 % [facility] RDW SD 55.0(H) 35.7 - 48.1 fL [facility] NRBC abs 0.00 0.00 - 0.01 K/cumm [facility] Blood 10/19/2023 2:11 AM TREE SPECIALIST 10/19/2023 2:23 AM TREE SPECIALIST us Byron Olvera CLOTH PAINTER LAB BLOOD ORDERABLES Fi nal Result Performing Organization Address [facility]/ZIP Co de Phone Number [facility] [address] Department [employer] [place], [place] [phone] * (ABNORMAL) POCT glucose (10/19/2023 2:07 AM TREE SPECIALIST) Glucose, POC 171(H) 70 - 140 mg/dL [facility] Comment: For Glucose values <35 mg/dl when Hematocrit is >60 mg/dl,the test may not accurately detect significant hypoglycemia,and testing in the Laboratory should be considered if clinically indicated. Blood 10/19/2023 2:07 AM TREE SPECIALIST 10/19/2023 2:07 AM TREE SPECIALIST us Jaqueline Valero MD LAB POCT ORDERABLES - APRIL CE Final Result Performing Organization Address [facility]/ZIP Co de Phone Number [facility] [address] Department [employer] [place] [address] * (ABNORMAL) POCT glucose (10/19/2023 12:01 AM TREE SPECIALIST) Glucose, POC 144(H) 70 - 140 mg/dL [facility] Comment: For Glucose values <35 mg/dl when Hematocrit is >60 mg/dl,the test may not accurately detect significant hypoglycemia,and testing in the Laboratory should be considered if clinically indicated. Blood 10/19/2023 12:0 1 AM TREE SPECIALIST 10/19/2023 12:01 AM TREE SPECIALIST Jaqueline Valero MD LAB POCT ORDERABLES - APRIL CE Final Result Performing Organization Address [facility] Co de Phone Number [facility] [address] [facility] [place] [employer] [place] [address] * POCT glucose (10/18/2023 11:03 PM TREE SPECIALIST) Glucose, POC 106 70 - 140 mg/dL [facility] Comment: For Glucose values <35 mg/dl when Hematocrit is >60 mg/dl,the test may not accurately detect significant hypoglycemia,and testing in the Laboratory should be considered if clinically indicated. Blood 10/18/2023 11:0 3 PM TREE SPECIALIST 10/18/2023 11:03 PM TREE SPECIALIST Jaqueline Valero MD LAB POCT ORDERABLES - APRIL CE Final Result Performing Organization Address [facility] de Phone Number [facility] [address] [facility] [place] [place] [address] * POCT glucose (10/18/2023 10:11 PM TREE SPECIALIST) Glucose, POC 114 70 - 140 mg/dL [facility] Comment: For Glucose values <35 mg/dl when Hematocrit is >60 mg/dl,the test may not accurately detect significant hypoglycemia,and testing in the Laboratory should be considered if clinically indicated. Blood 10/18/2023 10:1 1 PM TREE SPECIALIST 10/18/2023 10:11 PM TREE SPECIALIST Jaqueline Valero MD LAB POCT ORDERABLES - APRIL CE Final Result Performing Organization Address [facility] Co de Phone Number [facility] [address] [facility] [employer] [place], [place] [id number] * (ABNORMAL) aPTT (10/18/2023 9:21 PM TREE SPECIALIST) aPTT 43(H) 28 - 38 sec [facility] Comment: Interpretive Data Heparin therapeutic range: 66.0 - 100.0 seconds. Range based on correlation with therapeutic heparin activity range of 0.3 - 0.7 Units/mL. Current interpretive data was last revised on 2023. Blood 10/18/2023 9:21 PM TREE SPECIALIST 10/18/2023 9:25 PM TREE SPECIALIST N[facility]ative [facility] 10/18/2023 9:42 PM TREE SPECIALIST Draw STAT PTT 6 hrs after initiation of heparin infusion, draw STAT PTT 6 hours after each dose change, and every 6 hours until 2 consecutive PTTs are within therapeutic range. Once two consecutive PTT's are therapeutic (46-70 seconds), then draw PTT every AM until heparin is discontinued. Jaqueline Valero MD LAB BLOOD ORDERABLES Final Result Performing Organization Address [facility] Co de Phone Number [facility] [address] [email or web address] [place], [place] [id number] * POCT glucose (10/18/2023 9:19 PM TREE SPECIALIST) Glucose, POC 120 70 - 140 mg/dL [facility] Comment: For Glucose values <35 mg/dl when Hematocrit is >60 mg/dl,the test may not accurately detect significant hypoglycemia,and testing in the Laboratory should be considered if clinically indicated. Blood 10/18/2023 9:19 PM TREE SPECIALIST 10/18/2023 9:19 PM TREE SPECIALIST Jaqueline Valero MD LAB POCT ORDERABLES - APRIL CE Final Result Performing Organization Address [facility] Co de Phone Number [facility] [address] [facility] [employer] [place], [place] [id number] * POCT glucose (10/18/2023 8:37 PM TREE SPECIALIST) Glucose, POC 120 70 - 140 mg/dL [facility] Comment: For Glucose values <35 mg/dl when Hematocrit is >60 mg/dl,the test may not accurately detect significant hypoglycemia,and testing in the Laboratory should be considered if clinically indicated. Blood 10/18/2023 8:37 PM TREE SPECIALIST 10/18/2023 8:37 PM TREE SPECIALIST Jaqueline Valero MD LAB POCT ORDERABLES - APIRL CE Final Result Performing Organization Address [facility] Co de Phone Number [facility] [address] Department [place] [address] * (ABNORMAL) Blood gas, arterial (10/18/2023 8:34 PM TREE SPECIALIST) pH, Art 7.27(L) 7.35 - 7.45 [facility] PCO2, Arterial 46(H) 35 - 45 mmHg [facility] PO2, Arterial 88 83 - 108 mmHg [facility] HCO3 Art (Calculated) 21 20 - 30 mmol/L [facility] BE, art -6 mmol/L [facility] Comment: Interpretive Data No Reference Range Established Current Interpretive Data was last revised on 2017 O2 Sat Art (Calculated) 95 94 - 98 % [facility] Blood 10/18/2023 8:34 PM TREE SPECIALIST 10/18/2023 8:40 PM TREE SPECIALIST Gamal Fox NP LAB BLOOD ORDERABLES Final Result Performing Organization Address [facility] Co de Phone Number [facility] [address] Department [place] [address] * Critical Care (10/18/2023 6:49 PM TREE SPECIALIST) Narrative Kirsten Burns MD - 10/18/2023 6:49 PM TREE SPECIALIST Gamal Fox NP ? 10/19/2023 ??3:18 AM Critical Care Performed by: Gamal Fox NP Authorized by: Gamal Fox NP ?? CRITICAL CARE: ??Team: ??[facility] CT ??Shift: ??PM ??Level of [...] plan with the ICU team and other medical/oracle distribution consultant staff, making frequent assessments and decisions [...] Result * POCT glucose (10/18/2023 6:38 PM TREE SPECIALIST) Glucose, POC 135 70 - 140 mg/dL [facility] Comment: For Glucose values <35 mg/dl when Hematocrit is >60 mg/dl,the test may not accurately detect significant hypoglycemia,and testing in the Laboratory should be considered if clinically indicated. Blood 10/18/2023 6:38 PM TREE SPECIALIST 10/18/2023 6:38 PM TREE SPECIALIST Jaqueline Valero MD LAB POCT ORDERABLES - APRIL CE Final Result [facility] [address] Department [place] [address] * POCT glucose (10/18/2023 5:45 PM TREE SPECIALIST) Glucose, POC 132 70 - 140 mg/dL [facility] Comment: For Glucose values <35 mg/dl when Hematocrit is >60 mg/dl,the test may not accurately detect significant hypoglycemia,and testing in the Laboratory should be considered if clinically indicated. Blood 10/18/2023 5:45 PM TREE SPECIALIST 10/18/2023 5:45 PM TREE SPECIALIST us Jaqueline Valero MD LAB POCT ORDERABLES - APRIL CE Final Result [facility] [address] Department [place] [address] * XR Kub (10/18/2023 5:42 PM TREE SPECIALIST) Anatomical Region Laterality Modality Body, Abdomen N/A Computed Radiogr aphy 10/18/2023 5:50 PM TREE SPECIALIST Impressions 10/18/2023 5:50 PM TREE SPECIALIST FINDINGS/IMPRESSION: ?? Apically oriented left-sided chest tubes and mediastinal drains. Overall paucity of gas distended bowel loops within the abdomen and pelvis. ??No visualized dilated bowel loops. ??No large volume of intraperitoneal free air, although evaluation is limited with supine positioning. ??A Nguyen catheter temperature probe is present. ??No acute osseous abnormality. Electronically signed by: Camilo Cheatham MD Narrative 10/18/2023 5:50 PM TREE SPECIALIST EXAMINATION: XR KUB HISTORY: Nausa vomiting VIEWS: [...] Result * POCT glucose (10/18/2023 4:47 PM TREE SPECIALIST) [facility] Glucose, POC 138 70 - 140 mg/dL [facility] Comment: For Glucose values <35 mg/dl when Hematocrit is >60 mg/dl,the test may not accurately detect significant hypoglycemia,and testing in the Laboratory should be considered if clinically indicated. Blood 10/18/2023 4:47 PM TREE SPECIALIST 10/18/2023 4:47 PM TREE SPECIALIST Result [facility] Jaqueline Valero MD LAB POCT ORDERABLES - APRIL CE Final Result Performing Organization Address [facility] de Phone Number [facility] [address] [place] [address] * aPTT (10/18/2023 2:55 PM TREE SPECIALIST) aPTT 38 28 - 38 sec [facility] Comment: Interpretive Data Heparin therapeutic range: 66.0 - 100.0 seconds. Range based on correlation with therapeutic heparin activity range of 0.3 - 0.7 Units/mL. Current interpretive data was last revised on 2023. Blood 10/18/2023 2:55 PM TREE SPECIALIST 10/18/2023 3:16 PM TREE SPECIALIST Result [facility] Jaqueline Valero MD LAB BLOOD ORDERABLES Final Result Performing Organization Address [facility] de Phone Number [facility] [address] [place] [address] * POCT glucose (10/18/2023 2:52 PM TREE SPECIALIST) Glucose, POC 104 70 - 140 mg/dL [facility] Comment: For Glucose values <35 mg/dl when Hematocrit is >60 mg/dl,the test may not accurately detect significant hypoglycemia,and testing in the Laboratory should be considered if clinically indicated. Blood 10/18/2023 2:52 PM TREE SPECIALIST 10/18/2023 2:52 PM TREE SPECIALIST Result [facility] Jaqueline Valero MD LAB POCT ORDERABLES - APRIL CE Final Result Performing Organization Address [facility] Co de Phone Number [facility] [address] [facility] [employer] [place] [address] * POCT glucose (10/18/2023 1:53 PM TREE SPECIALIST) Glucose, POC 87 70 - 140 mg/dL [facility] Comment: For Glucose values <35 mg/dl when Hematocrit is >60 mg/dl,the test may not accurately detect significant hypoglycemia,and testing in the Laboratory should be considered if clinically indicated. Blood 10/18/2023 1:53 PM TREE SPECIALIST 10/18/2023 1:53 PM TREE SPECIALIST Jaqueline Valero MD LAB POCT ORDERABLES - APRIL CE Final Result Performing Organization Address [facility] Co de Phone Number [facility] [address] [facility] [place] [employer] [place] [address] * POCT glucose (10/18/2023 12:48 PM TREE SPECIALIST) Glucose, POC 83 70 - 140 mg/dL [facility] Comment: For Glucose values <35 mg/dl when Hematocrit is >60 mg/dl,the test may not accurately detect significant hypoglycemia,and testing in the Laboratory should be considered if clinically indicated. Blood 10/18/2023 12:4 8 PM TREE SPECIALIST 10/18/2023 12:48 PM TREE SPECIALIST Jaqueline Valero MD LAB POCT ORDERABLES - APRIL CE Final Result Performing Organization Address [facility] Co de Phone Number [facility] [address] [facility] [place] [employer] [place] [address] * POCT glucose (10/18/2023 12:00 PM TREE SPECIALIST) Glucose, POC 81 70 - 140 mg/dL [facility] Comment: For Glucose values <35 mg/dl when Hematocrit is >60 mg/dl,the test may not accurately detect significant hypoglycemia,and testing in the Laboratory should be considered if clinically indicated. Blood 10/18/2023 12:0 0 PM TREE SPECIALIST 10/18/2023 12:00 PM TREE SPECIALIST Jaqueline Valero MD LAB POCT ORDERABLES - APRIL CE Final Result Performing Organization Address [facility] Co de Phone Number [facility] [address] [place] [address] * POCT glucose (10/18/2023 10:57 AM TREE SPECIALIST) Glucose, POC 76 70 - 140 mg/dL [facility] Comment: For Glucose values <35 mg/dl when Hematocrit is >60 mg/dl,the test may not accurately detect significant hypoglycemia,and testing in the Laboratory should be considered if clinically indicated. Blood 10/18/2023 10:5 7 AM TREE SPECIALIST 10/18/2023 10:57 AM TREE SPECIALIST Jaqueline Valero MD LAB POCT ORDERABLES - APRIL CE Final Result Performing Organization Address [facility] de Phone Number [facility] [address] [facility] [place] [employer] [place] [address] * POCT glucose (10/18/2023 9:52 AM TREE SPECIALIST) Glucose, POC 92 70 - 140 mg/dL [facility] Comment: For Glucose values <35 mg/dl when Hematocrit is >60 mg/dl,the test may not accurately detect significant hypoglycemia,and testing in the Laboratory should be considered if clinically indicated. Blood 10/18/2023 9:52 AM TREE SPECIALIST 10/18/2023 9:52 AM TREE SPECIALIST Jaqueline Valero MD LAB POCT ORDERABLES - APRIL CE Final Result Performing Organization Address [facility] Co de Phone Number [facility] [address] [place] [address] * POCT glucose (10/18/2023 8:46 AM TREE SPECIALIST) Glucose, POC 115 70 - 140 mg/dL [facility] Comment: For Glucose values <35 mg/dl when Hematocrit is >60 mg/dl,the test may not accurately detect significant hypoglycemia,and testing in the Laboratory should be considered if clinically indicated. Blood 10/18/2023 8:46 AM TREE SPECIALIST 10/18/2023 8:46 AM TREE SPECIALIST Jaqueline Valero MD LAB POCT ORDERABLES - APRIL CE Final Result Performing Organization Address [facility] Co de Phone Number [facility] [address] Department [place] [address] * POCT glucose (10/18/2023 7:58 AM TREE SPECIALIST) [facility] Glucose, POC 130 70 - 140 mg/dL [facility] Comment: For Glucose values <35 mg/dl when Hematocrit is >60 mg/dl,the test may not accurately detect significant hypoglycemia,and testing in the Laboratory should be considered if clinically indicated. Blood 10/18/2023 7:58 AM TREE SPECIALIST 10/18/2023 7:58 AM TREE SPECIALIST Jaqueline Valero MD LAB POCT ORDERABLES - APRIL CE Final Result Performing Organization Address [facility] de Phone Number [facility] [address] [place] [employer] [place] [address] * Critical Care (10/18/2023 7:27 AM TREE SPECIALIST) Narrative Kirsten Burns MD - 10/18/2023 7:27 AM TREE SPECIALIST Dawna Castellanos NP ? 10/18/2023 ??2:29 PM Critical Care Performed by: Dawna Castellanos NP Authorized by: Dawna Castellanos NP ?? CRITICAL CARE: ??Team: ??[facility] CT ??Shift: ??AM ??Level of [...] plan with the ICU team and other medical/oracle distribution consultant staff, making frequent assessments and decisions [...] monitors, laboratory results, and imaging Dawna Castellanos CLOTH PAINTER IN CLINIC/BEDSIDE ORDERAB LES Final Result * (ABNORMAL) POCT glucose (10/18/2023 7:02 AM TREE SPECIALIST) Glucose, POC 169(H) 70 - 140 mg/dL [facility] Comment: For Glucose values <35 mg/dl when Hematocrit is >60 mg/dl,the test may not accurately detect significant hypoglycemia,and testing in the Laboratory should be considered if clinically indicated. Blood 10/18/2023 7:02 AM TREE SPECIALIST 10/18/2023 7:02 AM TREE SPECIALIST Result [facility] Jaqueline Valero MD LAB POCT ORDERABLES - APRIL CE Final Result Performing Organization Address [facility]/State/ZIP Co de Phone Number [facility] [address] Department of Laboratories [place], [place] [phone] * (ABNORMAL) POCT glucose (10/18/2023 6:04 AM TREE SPECIALIST) Glucose, POC 196(H) 70 - 140 mg/dL [facility] Comment: For Glucose values <35 mg/dl when Hematocrit is >60 mg/dl,the test may not accurately detect significant hypoglycemia,and testing in the Laboratory should be considered if clinically indicated. Blood 10/18/2023 6:04 AM TREE SPECIALIST 10/18/2023 6:04 AM TREE SPECIALIST Jaqueline Valero MD LAB POCT ORDERABLES - APRIL CE Final Result [facility] [address] Department [place] [address] * XR Chest 1 View - Portable - in AM (10/18/2023 5:38 AM TREE SPECIALIST) Anatomical Region Laterality Modality Body, Chest N/A Computed Radiogr aphy 10/18/2023 9:33 AM TREE SPECIALIST Impressions 10/18/2023 9:33 AM TREE SPECIALIST Comparison 10/17/2023 at 1:37 PM. ??Median sternotomy wires and sternal plates again seen. ??Aortic valve replacement again noted. ??Racine-Daniel catheter tip projects over the proximal portion [...] Ramirez Blake M.D. Narrative 10/18/2023 9:33 AM TREE SPECIALIST EXAMINATION: Chest 1 view Procedure Note Ramirez Blake MD - 10/18/2023 EXAMINATION: Chest 1 view IMPRESSION: Comparison 10/17/2023 at 1:37 PM. Median sternotomy wires and sternal plates again seen. Aortic valve replacement again noted. Racine-Daniel catheter tip projects over the proximal portion [...] signed by: Ramirez Blake M.D. Byron Olvera CLOTH PAINTER IMG XR PROCEDURES Final Result * (ABNORMAL) POCT glucose (10/18/2023 5:04 AM TREE SPECIALIST) Glucose, POC 172(H) 70 - 140 mg/dL [facility] Comment: For Glucose values <35 mg/dl when Hematocrit is >60 mg/dl,the test may not accurately detect significant hypoglycemia,and testing in the Laboratory should be considered if clinically indicated. Blood 10/18/2023 5:04 AM TREE SPECIALIST 10/18/2023 5:04 AM TREE SPECIALIST Jaqueline Valero MD LAB POCT ORDERABLES - APRIL CE Final Result Performing Organization Address [facility] de Phone Number [facility] [address] [email or web address] [place], [place] [phone] * (ABNORMAL) POCT glucose (10/18/2023 4:03 AM TREE SPECIALIST) Glucose, POC 165(H) 70 - 140 mg/dL [facility] Comment: For Glucose values <35 mg/dl when Hematocrit is >60 mg/dl,the test may not accurately detect significant hypoglycemia,and testing in the Laboratory should be considered if clinically indicated. Blood 10/18/2023 4:03 AM TREE SPECIALIST 10/18/2023 4:03 AM TREE SPECIALIST Jaqueline Valero MD LAB POCT ORDERABLES - APRIL CE Final Result Performing Organization Address [facility] Co de Phone Number [facility] [address] [facility] [employer] [place] [address] * (ABNORMAL) POCT glucose (10/18/2023 3:04 AM TREE SPECIALIST) Glucose, POC 167(H) 70 - 140 mg/dL [facility] Comment: For Glucose values <35 mg/dl when Hematocrit is >60 mg/dl,the test may not accurately detect significant hypoglycemia,and testing in the Laboratory should be considered if clinically indicated. Blood 10/18/2023 3:04 AM TREE SPECIALIST 10/18/2023 3:04 AM TREE SPECIALIST Jaqueline Valero MD LAB POCT ORDERABLES - APRIL CE Final Result Performing Organization Address [facility] Co de Phone Number [facility] [address] [facility] [employer] [place], [place] [id number] * (ABNORMAL) POCT glucose (10/18/2023 1:57 AM TREE SPECIALIST) Glucose, POC 178(H) 70 - 140 mg/dL [facility] Comment: For Glucose values <35 mg/dl when Hematocrit is >60 mg/dl,the test may not accurately detect significant hypoglycemia,and testing in the Laboratory should be considered if clinically indicated. Blood 10/18/2023 1:57 AM TREE SPECIALIST 10/18/2023 1:57 AM TREE SPECIALIST Jaqueline Valero MD LAB POCT ORDERABLES - APRIL CE Final Result Performing Organization Address [facility] de Phone Number [facility] [address] [facility] [employer] [place], [place] [phone] * (ABNORMAL) Fibrinogen (10/18/2023 1:54 AM TREE SPECIALIST) [facility] Fibrinogen 435(H) 170 - 400 mg/dL [facility] Blood 10/18/2023 1:54 AM TREE SPECIALIST 10/18/2023 2:14 AM TREE SPECIALIST Jaqueline Valero MD LAB BLOOD ORDERABLES Final Result Performing Organization Address [facility] Co de Phone Number [facility] [address] [facility] [employer] [place], [place] [phone] * eGFR (10/18/2023 1:54 AM TREE SPECIALIST) [facility] eGFR 5 mL/min/1. 73 m2 [facility] Comment: Interpretive Data Reference Interval Normal [...] last reviewed 2021. Blood 10/18/2023 1:54 AM TREE SPECIALIST 10/18/2023 2:14 AM TREE SPECIALIST us Dawna Castellanos CLOTH PAINTER LAB BLOOD ORDERABLES Ann Marie kramer Result [facility] [address] Department [place] [address] * Blood gas, arterial (10/18/2023 1:54 AM TREE SPECIALIST) pH, Art 7.35 7.35 - 7.45 [facility] PCO2, Arterial 38 35 - 45 mmHg [facility] PO2, Arterial 92 83 - 108 mmHg [facility] HCO3 Art (Calculated) 21 20 - 30 mmol/L [facility] BE, art -4 mmol/L [facility] Comment: Interpretive Data No Reference Range Established Current Interpretive Data was last revised on 2017 O2 Sat Art (Calculated) 97 94 - 98 % [facility] Blood 10/18/2023 1:54 AM TREE SPECIALIST 10/18/2023 2:11 AM TREE SPECIALIST Dawna Castellanos CLOTH PAINTER LAB BLOOD ORDERABLES Ann Marie l Result Performing Organization Address [facility] Co de Phone Number [facility] [address] [place] [place] [address] * Protime-INR (10/18/2023 1:54 AM TREE SPECIALIST) PT 13.4 10.3 - 13.7 sec [facility] INR 1.18 0.90 - 1.20 [facility] Comment: Interpretive data Oral anticoagulant therapeutic ranges: Venous thromboembolism prophylaxis or treatment: 2.0-3.0 CARDIOLOGY Standard range: 2.0-3.0 High-intensity range: 2.5-3.5 Refer to indication-specific guidelines for appropriate target ranges for prosthetic heart valve replacement. Current interpretive data was last revised on 2019. Blood 10/18/2023 1:54 AM TREE SPECIALIST 10/18/2023 2:14 AM TREE SPECIALIST Jaqueline Valero MD LAB BLOOD ORDERABLES Final Result Performing Organization Address [facility] Co de Phone Number [facility] [address] [facility] [employer] [place] [address] * Magnesium (10/18/2023 1:54 AM TREE SPECIALIST) Magnesium 2.5 1.4 - 2.5 mg/dL [facility] Blood 10/18/2023 1:54 AM TREE SPECIALIST 10/18/2023 2:14 AM TREE SPECIALIST Byron Olvera CLOTH PAINTER LAB BLOOD ORDERABLES Fi nal Result Performing Organization Address [facility] Co de Phone Number [facility] [address] [place] [place] [address] * Calcium, ionized (10/18/2023 1:54 AM TREE SPECIALIST) Calcium, Ionized 4.94 4.50 - 5.10 mg/dL [facility] Blood 10/18/2023 1:54 AM TREE SPECIALIST 10/18/2023 2:12 AM TREE SPECIALIST us Byron Olvera CLOTH PAINTER LAB BLOOD ORDERABLES Fi nal Result [facility] [address] Department [place] [address] * (ABNORMAL) Renal function panel (10/18/2023 1:54 AM TREE SPECIALIST) Pathologist [facility] Sodium 136 135 - 145 mmol/L [facility] Potassium, pl 4.0 3.3 - 4.9 mmol/L [facility] Chloride 98 97 - 110 mmol/L [facility] CO2 20(L) 22 - 32 mmol/L [facility] Anion gap 18(H) 2 - 15 mmol/L [facility] BUN 71(H) 6 - 25 mg/dL [facility] Creatinine 10.47(H) 0.80 - 1.30 mg/dL [facility] Glucose 174 70 - 199 mg/dL [facility] Comment: Interpretive Data Fasting glucose >/= [...] 2022. Calcium 9.2 8.5 - 10.3 mg/dL [facility] Phosphorus, pl 6.5(H) 2.3 - 4.5 mg/dL [facility] Albumin 2.6(L) 3.5 - 5.0 g/dL [facility] Blood 10/18/2023 1:54 AM TREE SPECIALIST 10/18/2023 2:14 AM TREE SPECIALIST Byron Olvera NP LAB BLOOD ORDERABLES Fi nal Result Performing Organization Address [facility] Co de Phone Number [facility] [address] [email or web address] [address] * (ABNORMAL) CBC without differential (10/18/2023 1:54 AM TREE SPECIALIST) [facility] WBC 8.3 3.8 - 9.9 K/cumm [facility] Hgb 8.5(L) 13.0 - 17.5 g/dL [facility] Hct 26.4(L) 38.9 - 50.3 % [facility] Plt 164 150 - 400 K/cumm [facility] MPV 11.1 9.1 - 12.3 fL [facility] RBC 2.89(L) 4.30 - 5.80 M/cumm [facility] MCV 91.3 81.3 - 96.4 fL [facility] MCH 29.4 27.1 - 33.3 pg [facility] MCHC 32.2(L) 32.3 - 35.7 g/dL [facility] RDW CV 15.5(H) 11.1 - 14.9 % [facility] RDW SD 49.9(H) 35.7 - 48.1 fL [facility] NRBC abs 0.02(H) 0.00 - 0.01 K/cumm [facility] Blood 10/18/2023 1:54 AM TREE SPECIALIST 10/18/2023 2:14 AM TREE SPECIALIST Byron Olvera NP LAB BLOOD ORDERABLES Fi nal Result Performing Organization Address City/[facility]/ZIP Co de Phone Number [facility] [address] Department of [employer] [place], [place] [phone] * (ABNORMAL) POCT glucose (10/18/2023 12:57 AM TREE SPECIALIST) [facility] Glucose, POC 169(H) 70 - 140 mg/dL [facility] Comment: For Glucose values <35 mg/dl when Hematocrit is >60 mg/dl,the test may not accurately detect significant hypoglycemia,and testing in the Laboratory should be considered if clinically indicated. Blood 10/18/2023 12:5 7 AM TREE SPECIALIST 10/18/2023 12:57 AM TREE SPECIALIST Jaqueline Valero MD LAB POCT ORDERABLES - APRIL CE Final Result Performing Organization Address [facility] de Phone Number [facility] [address] [place] [address] * (ABNORMAL) POCT glucose (10/18/2023 12:04 AM TREE SPECIALIST) Glucose, POC 150(H) 70 - 140 mg/dL [facility] Comment: For Glucose values <35 mg/dl when Hematocrit is >60 mg/dl,the test may not accurately detect significant hypoglycemia,and testing in the Laboratory should be considered if clinically indicated. Blood 10/18/2023 12:0 4 AM TREE SPECIALIST 10/18/2023 12:04 AM TREE SPECIALIST Result [facility] Jaqueline Valero MD LAB POCT ORDERABLES - APRIL CE Final Result Performing Organization Address [facility] de Phone Number [facility] [address] [facility] [place] [place] [address] * POCT glucose (10/17/2023 11:00 PM TREE SPECIALIST) Glucose, POC 111 70 - 140 mg/dL [facility] Comment: For Glucose values <35 mg/dl when Hematocrit is >60 mg/dl,the test may not accurately detect significant hypoglycemia,and testing in the Laboratory should be considered if clinically indicated. Blood 10/17/2023 11:0 0 PM TREE SPECIALIST 10/17/2023 11:00 PM TREE SPECIALIST Jaqueline Valero MD LAB POCT ORDERABLES - APRIL CE Final Result Performing Organization Address [facility]/ZIP Co de Phone Number [facility] [address] Department [place] [address] * (ABNORMAL) Blood gas, arterial (10/17/2023 10:56 PM TREE SPECIALIST) [facility] pH, Art 7.33(L) 7.35 - 7.45 [facility] PCO2, Arterial 38 35 - 45 mmHg [facility] PO2, Arterial 102 83 - 108 mmHg [facility] HCO3 Art (Calculated) 20 20 - 30 mmol/L [facility] BE, art -5 mmol/L [facility] Comment: Interpretive Data No Reference Range Established Current Interpretive Data was last revised on 2017 O2 Sat Art (Calculated) 97 94 - 98 % [facility] Blood 10/17/2023 10:5 6 PM TREE SPECIALIST 10/17/2023 11:05 PM TREE SPECIALIST Dawna Castellanos CLOTH PAINTER LAB BLOOD ORDERABLES Ann Marie l Result [facility] [address] Department [place] [address] * (ABNORMAL) Differential, auto (10/17/2023 10:55 PM TREE SPECIALIST) [facility] Neutrophil abs 5.7 1.5 - 6.5 K/cumm [facility] Imm gran abs 0.1 0.0 - 0.1 K/cumm [facility] Lymphocyte abs 0.7(L) 0.8 - 3.3 K/cumm [facility] Monocyte abs 1.1(H) 0.2 - 0.8 K/cumm [facility] Eosinophil abs 0.1 0.0 - 0.5 K/cumm [facility] Basophil abs 0.0 0.0 - 0.1 K/cumm [facility] Neutrophil pct 73.6 % [facility] Comment: Interpretive Data Percent cell count reference ranges are not reported, since discordance with absolute values may lead to misinterpretation of CBC data. Current Interpretive Data was last revised on 2017. Imm gran pct 1.8 % [facility] Comment: Interpretive Data Percent cell count reference ranges are not reported, since discordance with absolute values may lead to misinterpretation of CBC data. Current Interpretive Data was last revised on 2017. Lymphocyte pct 9.3 % [facility] Comment: Interpretive Data Percent cell count reference ranges are not reported, since discordance with absolute values may lead to misinterpretation of CBC data. Current Interpretive Data was last revised on 2017. Monocyte pct 13.7 % [facility] Comment: Interpretive Data Percent cell count reference ranges are not reported, since discordance with absolute values may lead to misinterpretation of CBC data. Current Interpretive Data was last revised on 2017. Eosinophil pct 1.3 % [facility] Comment: Interpretive Data Percent cell count reference ranges are not reported, since discordance with absolute values may lead to misinterpretation of CBC data. Current Interpretive Data was last revised on 2017. Basophil pct 0.3 % [facility] Comment: Interpretive Data Percent cell count reference ranges are not reported, since discordance with absolute values may lead to misinterpretation of CBC data. Current Interpretive Data was last revised on 2017. Blood 10/17/2023 10:5 5 PM TREE SPECIALIST 10/17/2023 11:19 PM TREE SPECIALIST Gamal Fox NP LAB BLOOD ORDERABLES Final Result Performing Organization Address [facility]/ZIP Co de Phone Number [facility] [address] [place] [place] [address] * Lactate (10/17/2023 10:55 PM TREE SPECIALIST) Lactate 0.9 0.7 - 2.0 mmol/L [facility] Blood 10/17/2023 10:5 5 PM TREE SPECIALIST 10/17/2023 11:04 PM TREE SPECIALIST Gamal Fox NP LAB BLOOD ORDERABLES Final Result Performing Organization Address [facility]/ZIP Co de Phone Number [facility] [address] [place] [place] [address] * Calcium, ionized (10/17/2023 10:55 PM TREE SPECIALIST) [facility] Calcium, Ionized 4.51 4.50 - 5.10 mg/dL [facility] Blood 10/17/2023 10:5 5 PM TREE SPECIALIST 10/17/2023 11:05 PM TREE SPECIALIST Gamal Fox CLOTH PAINTER LAB BLOOD ORDERABLES Final Result Performing Organization Address [facility]/ZIP Co de Phone Number [facility] [address] [email or web address] [address] * (ABNORMAL) CBC with auto differential (10/17/2023 10:55 PM TREE SPECIALIST) [facility] WBC 7.7 3.8 - 9.9 K/cumm [facility] Hgb 8.8(L) 13.0 - 17.5 g/dL [facility] Hct 27.2(L) 38.9 - 50.3 % [facility] Plt 165 150 - 400 K/cumm [facility] MPV 11.0 9.1 - 12.3 fL [facility] RBC 2.94(L) 4.30 - 5.80 M/cumm [facility] MCV 92.5 81.3 - 96.4 fL [facility] MCH 29.9 27.1 - 33.3 pg [facility] MCHC 32.4 32.3 - 35.7 g/dL [facility] RDW CV 15.6(H) 11.1 - 14.9 % [facility] RDW SD 50.5(H) 35.7 - 48.1 fL [facility] NRBC abs 0.03(H) 0.00 - 0.01 K/cumm [facility] Blood 10/17/2023 10:5 5 PM TREE SPECIALIST 10/17/2023 11:19 PM TREE SPECIALIST Gamal Fox CLOTH PAINTER LAB BLOOD ORDERABLES Final Result Performing Organization Address City/[facility]/ZIP Co de Phone Number [facility] [address] [email or web address] [address] * POCT glucose (10/17/2023 10:19 PM TREE SPECIALIST) Glucose, POC 97 70 - 140 mg/dL [facility] Comment: For Glucose values <35 mg/dl when Hematocrit is >60 mg/dl,the test may not accurately detect significant hypoglycemia,and testing in the Laboratory should be considered if clinically indicated. Blood 10/17/2023 10:1 9 PM TREE SPECIALIST 10/17/2023 10:19 PM TREE SPECIALIST Jaqueline Valero MD LAB POCT ORDERABLES - APRIL CE Final Result Performing Organization Address [facility] Co de Phone Number [facility] [address] [facility] [place] [place] [address] * POCT glucose (10/17/2023 9:00 PM TREE SPECIALIST) Glucose, POC 127 70 - 140 mg/dL [facility] Comment: For Glucose values <35 mg/dl when Hematocrit is >60 mg/dl,the test may not accurately detect significant hypoglycemia,and testing in the Laboratory should be considered if clinically indicated. Blood 10/17/2023 9:00 PM TREE SPECIALIST 10/17/2023 9:00 PM TREE SPECIALIST Jaqueline Valero MD LAB POCT ORDERABLES - APRIL CE Final Result Performing Organization Address [facility] Co de Phone Number [facility] [address] [facility] [place] [place] [address] * Transfuse RBC (10/17/2023 8:13 PM TREE SPECIALIST) Blood Kirsten Burns MD BLOOD TRANSFUSION ORDERA BLES Final Result Performing Organization Address [facility] Co de Phone Number [facility] [address] [facility] [place] [place] [address] * Transfuse RBC: 1 Units (10/17/2023 8:13 PM TREE SPECIALIST) Blood Kirsten Burns MD BLOOD TRANSFUSION ORDERA BLES Final Result * (ABNORMAL) POCT glucose (10/17/2023 8:07 PM TREE SPECIALIST) Glucose, POC 157(H) 70 - 140 mg/dL [facility] Comment: For Glucose values <35 mg/dl when Hematocrit is >60 mg/dl,the test may not accurately detect significant hypoglycemia,and testing in the Laboratory should be considered if clinically indicated. Blood 10/17/2023 8:07 PM TREE SPECIALIST 10/17/2023 8:07 PM TREE SPECIALIST Jaqueline Valero MD LAB POCT ORDERABLES - APRIL CE Final Result Performing Organization Address [facility] Co de Phone Number [facility] [address] [email or web address] [place], [place] [id number] * POCT glucose (10/17/2023 7:18 PM TREE SPECIALIST) Glucose, POC 135 70 - 140 mg/dL [facility] Comment: For Glucose values <35 mg/dl when Hematocrit is >60 mg/dl,the test may not accurately detect significant hypoglycemia,and testing in the Laboratory should be considered if clinically indicated. Blood 10/17/2023 7:18 PM TREE SPECIALIST 10/17/2023 7:18 PM TREE SPECIALIST Jaqueline Valero MD LAB POCT ORDERABLES - APRIL CE Final Result Performing Organization Address [facility]/ZIP Co de Phone Number [facility] [address] [facility] [employer] [place], [place] [id number] * Critical Care (10/17/2023 6:42 PM TREE SPECIALIST) Narrative Kirsten Burns MD - 10/17/2023 6:42 PM TREE SPECIALIST Gamal Fox NP ? 10/18/2023 ??5:08 AM Critical Care Performed by: Gamal Fox NP Authorized by: Gamal Fox NP ?? CRITICAL CARE: ??Team: ??[facility] CT ??Shift: ??PM ??Level of [...] plan with the ICU team and other medical/oracle distribution consultant staff, making frequent assessments and decisions [...] Prepare RBC: 1 Units (10/17/2023 6:34 PM TREE SPECIALIST) Product code [id number] Unit Number [id number] [facility] Product Blood Type APOS [facility] Dispense Status RETURNED [facility] Blood 10/17/2023 6:34 PM TREE SPECIALIST Narrative [facility] - 10/19/2023 7:08 AM TREE SPECIALIST Other indication->Bleeding post cardiac surgery Are special requirements needed? (All products are leukoreduced and CMV- safe)- >No Date required:-[id number] LRRBC # of [id number] Reasons:-Other (specify)} us Kirsten Burns MD BLOOD BANK PRODUCT ORDER ROVERTO Final Result [facility] [address] Department [place] [address] * Potassium (10/17/2023 6:14 PM TREE SPECIALIST) [facility] Potassium, pl 4.2 3.3 - 4.9 mmol/L [facility] Blood 10/17/2023 6:14 PM TREE SPECIALIST 10/17/2023 6:27 PM TREE SPECIALIST Byron Olvera CLOTH PAINTER LAB BLOOD ORDERABLES Fi nal Result Performing Organization Address [facility]/ZIP Co de Phone Number [facility] [address] [email or web address] [address] * (ABNORMAL) CBC without differential (10/17/2023 6:12 PM TREE SPECIALIST) [facility] WBC 7.2 3.8 - 9.9 K/cumm [facility] Hgb 8.0(L) 13.0 - 17.5 g/dL [facility] Hct 24.7(L) 38.9 - 50.3 % [facility] Plt 161 150 - 400 K/cumm [facility] MPV 10.8 9.1 - 12.3 fL [facility] RBC 2.68(L) 4.30 - 5.80 M/cumm [facility] MCV 92.2 81.3 - 96.4 fL [facility] MCH 29.9 27.1 - 33.3 pg [facility] MCHC 32.4 32.3 - 35.7 g/dL [facility] RDW CV 15.5(H) 11.1 - 14.9 % [facility] RDW SD 50.4(H) 35.7 - 48.1 fL [facility] NRBC abs 0.04(H) 0.00 - 0.01 K/cumm [facility] Blood 10/17/2023 6:12 PM TREE SPECIALIST 10/17/2023 6:18 PM TREE SPECIALIST us Dawna Castellanos CLOTH PAINTER LAB BLOOD ORDERABLES Ann Marie l Result Performing Organization Address City/[facility]/ZIP Co de Phone Number [facility] [address] [place] [place] [address] * (ABNORMAL) Protime-INR (10/17/2023 6:12 PM TREE SPECIALIST) Pathologist [facility] PT 13.9(H) 10.3 - 13.7 sec [facility] INR 1.22(H) 0.90 - 1.20 [facility] Comment: Interpretive data Oral anticoagulant therapeutic ranges: Venous thromboembolism prophylaxis or treatment: 2.0-3.0 CARDIOLOGY Standard range: 2.0-3.0 High-intensity range: 2.5-3.5 Refer to indication-specific guidelines for appropriate target ranges for prosthetic heart valve replacement. Current interpretive data was last revised on 2019. Blood 10/17/2023 6:12 PM TREE SPECIALIST 10/17/2023 6:18 PM TREE SPECIALIST Dawna Castellanos CLOTH PAINTER LAB BLOOD ORDERABLES Ann Marie l Result Performing Organization Address [facility] de Phone Number [facility] [address] [place] [address] * Fibrinogen (10/17/2023 6:12 PM TREE SPECIALIST) [facility] Fibrinogen 386 170 - 400 mg/dL [facility] Blood 10/17/2023 6:12 PM TREE SPECIALIST 10/17/2023 6:18 PM TREE SPECIALIST Dawna Bradshaw Castellanos CLOTH PAINTER LAB BLOOD ORDERABLES Ann Marie l Result Performing Organization Address [facility] de Phone Number [facility] [address] [place] [address] * aPTT (10/17/2023 6:12 PM TREE SPECIALIST) [facility] aPTT 32 28 - 38 sec [facility] Comment: Interpretive Data Heparin therapeutic range: 66.0 - 100.0 seconds. Range based on correlation with therapeutic heparin activity range of 0.3 - 0.7 Units/mL. Current interpretive data was last revised on 2023. Blood 10/17/2023 6:12 PM TREE SPECIALIST 10/17/2023 6:18 PM TREE SPECIALIST Dawna Castellanos CLOTH PAINTER LAB BLOOD ORDERABLES Ann Marie l Result Performing Organization Address [facility] Co de Phone Number [facility] [address] Department [place] [address] * (ABNORMAL) Blood gas, arterial (10/17/2023 6:12 PM TREE SPECIALIST) pH, Art 7.40 7.35 - 7.45 [facility] PCO2, Arterial 35 35 - 45 mmHg [facility] PO2, Arterial 69(L) 83 - 108 mmHg [facility] HCO3 Art (Calculated) 22 20 - 30 mmol/L [facility] BE, art -2 mmol/L [facility] Comment: Interpretive Data No Reference Range Established Current Interpretive Data was last revised on 2017 O2 Sat Art (Calculated) 94 94 - 98 % [facility] Blood 10/17/2023 6:12 PM TREE SPECIALIST 10/17/2023 6:15 PM TREE SPECIALIST Dawna Castellanos CLOTH PAINTER LAB BLOOD ORDERABLES Ann Marie l Result Performing Organization Address [facility] Co de Phone Number [facility] [address] Department [place] [address] * POCT glucose (10/17/2023 6:11 PM TREE SPECIALIST) Glucose, POC 130 70 - 140 mg/dL [facility] Comment: For Glucose values <35 mg/dl when Hematocrit is >60 mg/dl,the test may not accurately detect significant hypoglycemia,and testing in the Laboratory should be considered if clinically indicated. Blood 10/17/2023 6:11 PM TREE SPECIALIST 10/17/2023 6:11 PM TREE SPECIALIST Jaqueline Valero MD LAB POCT ORDERABLES - APRIL CE Final Result Performing Organization Address [facility] Co de Phone Number [facility] [address] [place] [place] [address] * Transfuse plasma Standard plasma (10/17/2023 5:46 PM TREE SPECIALIST) Blood Result [facility] Kirsten Burns MD BLOOD TRANSFUSION ORDERA BLES Final Result Performing Organization Address [facility]/ZIP Co de Phone Number [facility] [address] [facility] [place] [employer] [place] [address] * Transfuse plasma: 1 Units Standard plasma (10/17/2023 5:46 PM TREE SPECIALIST) Blood Result [facility] Kirsten Burns MD BLOOD TRANSFUSION ORDERA BLES Final Result * Prepare plasma: 1 Units Standard plasma (10/17/2023 5:09 PM TREE SPECIALIST) Product code [id number] Unit Number [id number] [facility] Product Blood Type APOS [facility] Dispense Status PRESUMED TRANSFUSED [facility] Blood (Blood, Venous) 10/17/2023 5:09 PM TREE SPECIALIST Narrative [facility] - 10/17/2023 10:15 PM TREE SPECIALIST Is this plasma order intended for a COVID-19 patient as convalescent plasma?->Standard plasma Special Requirements Needed?->No Date required:-[id number] FFP # of Units:-1-Units Reasons:-Active major bleeding with coagulopathy} Result [facility] Kirsten Burns MD BLOOD BANK PRODUCT ORDER ROVERTO Final Result Performing Organization Address City/[facility]/ZIP Co de Phone Number [facility] [address] [place] [address] * POCT glucose (10/17/2023 4:50 PM TREE SPECIALIST) Glucose, POC 110 70 - 140 mg/dL [facility] Comment: For Glucose values <35 mg/dl when Hematocrit is >60 mg/dl,the test may not accurately detect significant hypoglycemia,and testing in the Laboratory should be considered if clinically indicated. Blood 10/17/2023 4:50 PM TREE SPECIALIST 10/17/2023 4:50 PM TREE SPECIALIST Result [facility] Jaqueline Valero MD LAB POCT ORDERABLES - APRIL CE Final Result Performing Organization Address [facility] de Phone Number [facility] [address] [place], [place] [id number] * Transfuse plasma Standard plasma (10/17/2023 4:33 PM TREE SPECIALIST) Blood Result [facility] Kirsten Burns MD BLOOD TRANSFUSION ORDERA BLES Final Result Performing Organization Address [facility] de Phone Number [facility] [address] [place] [address] * Transfuse plasma: 1 Units Standard plasma (10/17/2023 4:33 PM TREE SPECIALIST) Blood Result [facility] Kirsten Burns MD BLOOD TRANSFUSION ORDERA BLES Final Result * Transfuse RBC (10/17/2023 4:33 PM TREE SPECIALIST) Blood Result [facility] Kirsten Burns MD BLOOD TRANSFUSION ORDERA BLES Final Result Performing Organization Address [facility] de Phone Number [facility] [address] [place] [address] * Transfuse RBC: 1 Units (10/17/2023 4:33 PM TREE SPECIALIST) Blood Result [facility] Kirsten Burns MD BLOOD TRANSFUSION ORDERA BLES Final Result * (ABNORMAL) CBC without differential (10/17/2023 4:32 PM TREE SPECIALIST) WBC 7.2 3.8 - 9.9 K/cumm [facility] Hgb 8.5(L) 13.0 - 17.5 g/dL [facility] Hct 26.4(L) 38.9 - 50.3 % [facility] Plt 166 150 - 400 K/cumm [facility] MPV 10.9 9.1 - 12.3 fL [facility] RBC 2.85(L) 4.30 - 5.80 M/cumm [facility] MCV 92.6 81.3 - 96.4 fL [facility] MCH 29.8 27.1 - 33.3 pg [facility] MCHC 32.2(L) 32.3 - 35.7 g/dL [facility] RDW CV 15.5(H) 11.1 - 14.9 % [facility] RDW SD 51.4(H) 35.7 - 48.1 fL [facility] NRBC abs 0.06(H) 0.00 - 0.01 K/cumm [facility] Blood 10/17/2023 4:32 PM TREE SPECIALIST 10/17/2023 4:37 PM TREE SPECIALIST us Dawna Castellanos CLOTH PAINTER LAB BLOOD ORDERABLES Ann Marie l Result Performing Organization Address City/[facility]/ZIP Co de Phone Number [facility] [address] [email or web address] [address] * (ABNORMAL) aPTT (10/17/2023 4:32 PM TREE SPECIALIST) aPTT 63(H) 28 - 38 sec [facility] Comment: Interpretive Data Heparin therapeutic range: 66.0 - 100.0 seconds. Range based on correlation with therapeutic heparin activity range of 0.3 - 0.7 Units/mL. Current interpretive data was last revised on 2023. Blood 10/17/2023 4:32 PM TREE SPECIALIST 10/17/2023 4:37 PM TREE SPECIALIST Dawna Castellanos CLOTH PAINTER LAB BLOOD ORDERABLES Ann Marie l Result [facility] [address] Department [employer] [place] [address] * Fibrinogen (10/17/2023 4:32 PM TREE SPECIALIST) Pathologist [facility] Fibrinogen 393 170 - 400 mg/dL [facility] Blood 10/17/2023 4:32 PM TREE SPECIALIST 10/17/2023 4:37 PM TREE SPECIALIST Dawna Castellanos CLOTH PAINTER LAB BLOOD ORDERABLES Ann Marie l Result Performing Organization Address [facility] de Phone Number [facility] [address] Department [place] [address] * (ABNORMAL) Protime-INR (10/17/2023 4:32 PM TREE SPECIALIST) [facility] PT 14.0(H) 10.3 - 13.7 sec [facility] INR 1.23(H) 0.90 - 1.20 [facility] Comment: Interpretive data Oral anticoagulant therapeutic ranges: Venous thromboembolism prophylaxis or treatment: 2.0-3.0 CARDIOLOGY Standard range: 2.0-3.0 High-intensity range: 2.5-3.5 Refer to indication-specific guidelines for appropriate target ranges for prosthetic heart valve replacement. Current interpretive data was last revised on 2019. Blood 10/17/2023 4:32 PM TREE SPECIALIST 10/17/2023 4:37 PM TREE SPECIALIST Dawna Castellanos CLOTH PAINTER LAB BLOOD ORDERABLES Ann Marie l Result Performing Organization Address [facility] Co de Phone Number [facility] [address] Department [place] [address] * (ABNORMAL) Blood gas, arterial (10/17/2023 4:32 PM TREE SPECIALIST) [facility] pH, Art 7.31(L) 7.35 - 7.45 [facility] PCO2, Arterial 45 35 - 45 mmHg [facility] PO2, Arterial 72(L) 83 - 108 mmHg [facility] HCO3 Art (Calculated) 23 20 - 30 mmol/L [facility] BE, art -4 mmol/L [facility] Comment: Interpretive Data No Reference Range Established Current Interpretive Data was last revised on 2017 O2 Sat Art (Calculated) 93(L) 94 - 98 % [facility] Blood 10/17/2023 4:32 PM TREE SPECIALIST 10/17/2023 4:35 PM TREE SPECIALIST us Dawna Castellanos CLOTH PAINTER LAB BLOOD ORDERABLES Ann Marie l Result Performing Organization Address [facility] Co de Phone Number [facility] [address] Department of [employer] [place], [place] [phone] * POCT glucose (10/17/2023 3:51 PM TREE SPECIALIST) [facility] Glucose, POC 98 70 - 140 mg/dL [facility] Comment: For Glucose values <35 mg/dl when Hematocrit is >60 mg/dl,the test may not accurately detect significant hypoglycemia,and testing in the Laboratory should be considered if clinically indicated. Blood 10/17/2023 3:51 PM TREE SPECIALIST 10/17/2023 3:51 PM TREE SPECIALIST Jaqueline Valero MD LAB POCT ORDERABLES - APRIL CE Final Result Performing Organization Address [facility] Co de Phone Number [facility] [address] Department of [employer] [place], [place] [id number] * Prepare plasma: 1 Units Standard plasma (10/17/2023 3:32 PM TREE SPECIALIST) [facility] Product code [id number] Unit Number [id number] [facility] Product Blood Type APOS [facility] Dispense Status PRESUMED TRANSFUSED [facility] Blood (Blood, Venous) 10/17/2023 3:32 PM TREE SPECIALIST Narrative [facility] - 10/17/2023 10:15 PM TREE SPECIALIST Is this plasma order intended for a COVID-19 patient as convalescent plasma?->Standard plasma Special Requirements Needed?->No Date required:-[id number] FFP # of Units:-1-Units Reasons:-Active major bleeding with coagulopathy} Kirsten Burns MD BLOOD BANK PRODUCT ORDER ROVERTO Final Result Performing Organization Address [facility] Co de Phone Number [facility] [address] Department [employer] [place], [place] [id number] * Prepare RBC: 1 Units (10/17/2023 3:32 PM TREE SPECIALIST) [facility] Product code [id number] Unit Number [id number] [facility] Product Blood Type APOS [facility] Dispense Status RETURNED [facility] Blood 10/17/2023 3:32 PM TREE SPECIALIST Narrative [facility] - 10/19/2023 7:08 AM TREE SPECIALIST Are special requirements needed? (All products are leukoreduced and CMV- safe)- >No Date required:-[id number] LRRBC # of [id number] Reasons:-Hemorrhagic shock/Life-threatening bleeding} Kirsten Burns MD BLOOD BANK PRODUCT ORDER ROVERTO Final Result Performing Organization Address [facility] de Phone Number [facility] [address] [place] [place] [address] * POCT glucose (10/17/2023 2:34 PM TREE SPECIALIST) [facility] Glucose, POC 102 70 - 140 mg/dL [facility] Comment: For Glucose values <35 mg/dl when Hematocrit is >60 mg/dl,the test may not accurately detect significant hypoglycemia,and testing in the Laboratory should be considered if clinically indicated. Blood 10/17/2023 2:34 PM TREE SPECIALIST 10/17/2023 2:34 PM TREE SPECIALIST Jaqueline Valero MD LAB POCT ORDERABLES - APRIL CE Final Result Performing Organization Address [facility] Co de Phone Number [facility] [address] Department [employer] [place], [place] [phone] * XR Chest 1 View - Portable (10/17/2023 1:49 PM TREE SPECIALIST) Anatomical Region Laterality Modality Body, Chest N/A Computed Radiogr aphy 10/17/2023 2:01 PM TREE SPECIALIST Impressions 10/17/2023 2:01 PM TREE SPECIALIST Comparison is made to two-view chest radiograph dated 10/16/2023. ??Endotracheal tube projects approximately 4.5 cm above the boni. ??Interval postoperative changes of median sternotomy with sternal wires, sternal plating, for aortic valve replacement. ??Right internal jugular central venous catheter overlies the superior vena cava. ??Racine-Daniel catheter tip projects over the main pulmonary artery. ??Left thoracostomy tube and mediastinal drain. ??Gastric tube courses caudally beneath left hemidiaphragm out of the [id number]. Lung volumes are small with minimal bibasilar atelectasis, left greater than right. ??Possible trace left pleural effusion. ??No pneumothorax. Electronically signed by: Tania Malone M.D. Narrative 10/17/2023 2:01 PM TREE SPECIALIST EXAMINATION: 1 view chest radiograph Procedure Note Tania Malone MD - 10/17/2023 EXAMINATION: 1 view chest radiograph IMPRESSION: Comparison is made to two-view chest radiograph dated 10/16/2023. Endotracheal tube projects approximately 4.5 cm above the boni. Interval postoperative changes of median sternotomy with sternal wires, sternal plating, for aortic valve replacement. Right internal jugular central venous catheter overlies the superior vena cava. Racine-Daniel catheter tip projects over the main pulmonary artery. Left thoracostomy tube and mediastinal drain. Gastric tube courses caudally beneath left hemidiaphragm out of the [id number]. Lung volumes are small with minimal bibasilar atelectasis, left greater than right. Possible trace left pleural effusion. No pneumothorax. Electronically signed by: Tania Malone M.D. Dawna Castellanos CLOTH PAINTER IMG XR PROCEDURES Final R esult * Critical Care (10/17/2023 1:44 PM TREE SPECIALIST) Narrative Kirsten Burns MD - 10/17/2023 1:44 PM TREE SPECIALIST Dawna Castellanos NP ? 10/17/2023 ??4:35 PM Critical Care Performed by: Dawna Castellanos NP Authorized by: Dawna Castellanos NP ?? CRITICAL CARE: ??Team: ??[facility] ??Shift: ??AM ??Level of [...] plan with the ICU team and other medical/oracle distribution consultant staff, making frequent assessments and decisions [...] Final Result * eGFR (10/17/2023 1:27 PM TREE SPECIALIST) [facility] eGFR 5 mL/min/1. 73 m2 [facility] Comment: Interpretive Data Reference Interval Normal [...] last reviewed 2021. Blood 10/17/2023 1:27 PM TREE SPECIALIST 10/17/2023 1:37 PM TREE SPECIALIST Dawna Castellanos CLOTH PAINTER LAB BLOOD ORDERABLES Ann Marie l Result Performing Organization Address [facility] Co de Phone Number [facility] [address] [facility] [place] [place] [address] * Fibrinogen (10/17/2023 1:27 PM TREE SPECIALIST) Fibrinogen 393 170 - 400 mg/dL [facility] Blood 10/17/2023 1:27 PM TREE SPECIALIST 10/17/2023 1:37 PM TREE SPECIALIST Dawna Castellanos CLOTH PAINTER LAB BLOOD ORDERABLES Ann Marie l Result Performing Organization Address [facility] Co de Phone Number [facility] [address] [place] [place] [address] * Lactate (10/17/2023 1:27 PM TREE SPECIALIST) Lactate 1.2 0.7 - 2.0 mmol/L [facility] Blood 10/17/2023 1:27 PM TREE SPECIALIST 10/17/2023 1:33 PM TREE SPECIALIST Dawna Castellanos CLOTH PAINTER LAB BLOOD ORDERABLES Ann Marie l Result Performing Organization Address [facility] Co de Phone Number [facility] [address] [facility] [place] [place] [address] * aPTT (10/17/2023 1:27 PM TREE SPECIALIST) Pathologist [facility] aPTT 37 28 - 38 sec [facility] Comment: Interpretive Data Heparin therapeutic range: 66.0 - 100.0 seconds. Range based on correlation with therapeutic heparin activity range of 0.3 - 0.7 Units/mL. Current interpretive data was last revised on 2023. Blood 10/17/2023 1:27 PM TREE SPECIALIST 10/17/2023 1:37 PM TREE SPECIALIST Dawna Castellanos CLOTH PAINTER LAB BLOOD ORDERABLES Ann Marie l Result Performing Organization Address [facility] Co de Phone Number [facility] [address] [place] [address] * (ABNORMAL) Protime-INR (10/17/2023 1:27 PM TREE SPECIALIST) [facility] PT 14.7(H) 10.3 - 13.7 sec [facility] INR 1.29(H) 0.90 - 1.20 [facility] Comment: Interpretive data Oral anticoagulant therapeutic ranges: Venous thromboembolism prophylaxis or treatment: 2.0-3.0 CARDIOLOGY Standard range: 2.0-3.0 High-intensity range: 2.5-3.5 Refer to indication-specific guidelines for appropriate target ranges for prosthetic heart valve replacement. Current interpretive data was last revised on 2019. Blood 10/17/2023 1:27 PM TREE SPECIALIST 10/17/2023 1:37 PM TREE SPECIALIST Dawna Castellanos CLOTH PAINTER LAB BLOOD ORDERABLES Ann Marie l Result Performing Organization Address [facility]/ZIP Co de Phone Number [facility] [address] [place] [address] * (ABNORMAL) CBC without differential (10/17/2023 1:27 PM TREE SPECIALIST) Pathologist [facility] WBC 7.4 3.8 - 9.9 K/cumm [facility] Hgb 8.4(L) 13.0 - 17.5 g/dL [facility] Hct 26.0(L) 38.9 - 50.3 % [facility] Plt 167 150 - 400 K/cumm [facility] MPV 10.7 9.1 - 12.3 fL [facility] RBC 2.85(L) 4.30 - 5.80 M/cumm [facility] MCV 91.2 81.3 - 96.4 fL [facility] MCH 29.5 27.1 - 33.3 pg [facility] MCHC 32.3 32.3 - 35.7 g/dL [facility] RDW CV 15.4(H) 11.1 - 14.9 % [facility] RDW SD 49.8(H) 35.7 - 48.1 fL [facility] NRBC abs 0.06(H) 0.00 - 0.01 K/cumm [facility] Blood 10/17/2023 1:27 PM TREE SPECIALIST 10/17/2023 1:37 PM TREE SPECIALIST us Dawna Castellanos CLOTH PAINTER LAB BLOOD ORDERABLES Ann Marie kramer Result [facility] [address] Department [place] [address] * (ABNORMAL) Blood gas, arterial (10/17/2023 1:27 PM TREE SPECIALIST) pH, Art 7.36 7.35 - 7.45 [facility] PCO2, Arterial 42 35 - 45 mmHg [facility] PO2, Arterial 65(L) 83 - 108 mmHg [facility] HCO3 Art (Calculated) 24 20 - 30 mmol/L [facility] BE, art -2 mmol/L [facility] Comment: Interpretive Data No Reference Range Established Current Interpretive Data was last revised on 2017 O2 Sat Art (Calculated) 92(L) 94 - 98 % [facility] Blood 10/17/2023 1:27 PM TREE SPECIALIST 10/17/2023 1:33 PM TREE SPECIALIST Dawna Castellanos CLOTH PAINTER LAB BLOOD ORDERABLES Ann Marie l Result Performing Organization Address City/[facility]/ZIP Co de Phone Number [facility] [address] [facility] [employer] [place], [place] [id number] * Calcium, ionized (10/17/2023 1:27 PM TREE SPECIALIST) [facility] Calcium, Ionized 4.51 4.50 - 5.10 mg/dL [facility] Blood 10/17/2023 1:27 PM TREE SPECIALIST 10/17/2023 1:34 PM TREE SPECIALIST Dawna Castellanos CLOTH PAINTER LAB BLOOD ORDERABLES Ann Marie l Result Performing Organization Address [facility] Co de Phone Number [facility] [address] [facility] [place] [place] [address] * Magnesium (10/17/2023 1:27 PM TREE SPECIALIST) [facility] Magnesium 2.3 1.4 - 2.5 mg/dL [facility] Blood 10/17/2023 1:27 PM TREE SPECIALIST 10/17/2023 1:37 PM TREE SPECIALIST Dawna Castellanos CLOTH PAINTER LAB BLOOD ORDERABLES Ann Marie l Result Performing Organization Address [facility] Co de Phone Number [facility] [address] [place] [address] * (ABNORMAL) Basic metabolic panel (10/17/2023 1:27 PM TREE SPECIALIST) Pathologist [facility] Sodium 139 135 - 145 mmol/L [facility] Potassium, pl 3.8 3.3 - 4.9 mmol/L [facility] Chloride 98 97 - 110 mmol/L [facility] CO2 23 22 - 32 mmol/L [facility] Anion gap 18(H) 2 - 15 mmol/L [facility] BUN 75(H) 6 - 25 mg/dL [facility] Creatinine 10.43(H) 0.80 - 1.30 mg/dL [facility] Glucose 119 70 - 199 mg/dL [facility] Comment: Interpretive Data Fasting glucose >/= [...] 2022. Calcium 8.9 8.5 - 10.3 mg/dL [facility] Blood 10/17/2023 1:27 PM TREE SPECIALIST 10/17/2023 1:37 PM TREE SPECIALIST Dawna Castellanos CLOTH PAINTER LAB BLOOD ORDERABLES Ann Marie l Result Performing Organization Address [facility] Co de Phone Number [facility] [address] [email or web address] [address] * (ABNORMAL) Phosphorus (10/17/2023 1:27 PM TREE SPECIALIST) Pathologist [facility] Phosphorus, pl 6.1(H) 2.3 - 4.5 mg/dL [facility] Blood 10/17/2023 1:27 PM TREE SPECIALIST 10/17/2023 1:37 PM TREE SPECIALIST Dawna Castellanos CLOTH PAINTER LAB BLOOD ORDERABLES Ann Marie l Result Performing Organization Address City/[facility]/ZIP Co de Phone Number [facility] [address] [email or web address] [address] * POCT glucose (10/17/2023 1:25 PM TREE SPECIALIST) Glucose, POC 137 70 - 140 mg/dL [facility] Comment: For Glucose values <35 mg/dl when Hematocrit is >60 mg/dl,the test may not accurately detect significant hypoglycemia,and testing in the Laboratory should be considered if clinically indicated. Blood 10/17/2023 1:25 PM TREE SPECIALIST 10/17/2023 1:25 PM TREE SPECIALIST us Jovani Kat DO LAB POCT ORDERABLES - DE VICE Final Result Performing Organization Address City/[facility]/ZIP Co de Phone Number [facility] [address] [place] [place] [address] * POC Activated Clotting Time, High Range (10/17/2023 12:26 PM TREE SPECIALIST) [facility] ACT 104 87 - 138 sec [facility] Blood 10/17/2023 12:2 6 PM TREE SPECIALIST 10/17/2023 12:26 PM TREE SPECIALIST us Jaqueline Valero MD LAB BLOOD ORDERABLES Final Result Performing Organization Address [facility] Co de Phone Number [facility] [address] [place] [place] [address] * (ABNORMAL) POC Blood Gas and Chemistries, Arterial - (10/17/2023 12:26 PM TREE SPECIALIST) [facility] pH, Art POC 7.31(L) 7.35 - 7.45 [facility] pCO2, Art POC 48(H) 35 - 45 mmHg [facility] pO2, Art POC 112(H) 80 - 108 mmHg [facility] Na, POC 134(L) 135 - 145 mmol/L [facility] K POC 4.0 3.3 - 4.9 mmol/L [facility] Comment: Interpretive Data This method is not able to assess for hemolysis, which may falsely increase potassium concentrations. If further testing is needed to evaluate this result, consider in-laboratory plasma potassium. Current Interpretive Data was last revised on 2022. Cl, POC 97 97 - 110 mmol/L [facility] Ionized Ca, POC 4.80 4.50 - 5.10 mg/dL [facility] Glucose, POC 147 70 - 199 mg/dL [facility] Lactate, POC 2.9(H) 0.0 - 2.0 mmol/L [facility] O2Hb, Art POC 96.7(H) 90.0 - 95.0 % [facility] Carboxhgb fract 0.8 0.0 - 2.9 % [facility] Methemoglobin 0.6 0.0 - 1.9 % [facility] HHb, POC 1.9 0.0 - 5.0 % [facility] SO2 (oren) arterial 98(H) 90 - 95 % [facility] Total CO2, Art POC 26 22 - 32 mmol/L [facility] BE, art, POC -2.1(L) -2.0 - 2.0 mmol/L [facility] HCO3, Art POC 23 20 - 30 mmol/L [facility] Hct, POC 24.0(L) 38.9 - 50.3 % [facility] Total Hb, POC 8.1(L) 13.0 - 17.5 g/dL [facility] Blood 10/17/2023 12:2 6 PM TREE SPECIALIST 10/17/2023 12:26 PM TREE SPECIALIST Jovani Kat DO LAB POCT ORDERABLES - DE VICE Final Result Performing Organization Address City/[facility]/ZIP Co de Phone Number [facility] [address] [facility] [place] [employer] [place] [address] * Transfuse platelets (10/17/2023 12:24 PM TREE SPECIALIST) Blood Ayden Alan MD BLOOD TRANSFUSION ORDERABLES F inal Result [facility] [address] [facility] [employer] [place], [place] [id number] * Transfuse RBC (10/17/2023 12:11 PM TREE SPECIALIST) Blood us Ayden Alan MD BLOOD TRANSFUSION ORDERABLES F inal Result [facility] [address] [facility] [employer] [place], [place] [phone] * Prepare RBC: 2 Units (10/17/2023 12:11 PM TREE SPECIALIST) Product code [id number] Unit Number [id number] [facility] Product Blood Type APOS [facility] Dispense Status PRESUMED TRANSFUSED [facility] Product code [id number] [facility] Unit Number [id number] [facility] Product [facility] Dispense Status PRESUMED TRANSFUSED [facility] Blood 10/17/2023 12:1 1 PM TREE SPECIALIST Narrative [facility] - 10/18/2023 10:15 PM TREE SPECIALIST Are special requirements needed? (All products are leukoreduced and CMV- safe)- >No Date required:-20231017 LRRBC # of [id number] Reasons:-Intra-op transfusion} Jaqueline Valero MD BLOOD BANK PRODUCT ORDERAB LES Final Result Performing Organization Address [facility] Co de Phone Number [facility] [address] Department [employer] [place], [place] [phone] * Transfuse cryoprecipitate (pooled units) (10/17/2023 12:05 PM TREE SPECIALIST) Blood Ayden Alan MD BLOOD TRANSFUSION ORDERABLES F inal Result Performing Organization Address [facility]/ZIP Co de Phone Number [facility] [address] [place] [place] [address] * Transfuse cryoprecipitate (pooled units) (10/17/2023 12:05 PM TREE SPECIALIST) Blood us Ayden Alan MD BLOOD TRANSFUSION ORDERABLES F inal Result Performing Organization Address [facility]/ZIP Co de Phone Number [facility] [address] [place] [address] * Transfuse plasma (10/17/2023 12:04 PM TREE SPECIALIST) Blood Ayden Alan MD BLOOD TRANSFUSION ORDERABLES F inal Result [facility] [address] [place] [address] * Transfuse plasma (10/17/2023 12:04 PM TREE SPECIALIST) Blood Ayden Alan MD BLOOD TRANSFUSION ORDERABLES F inal Result Performing Organization Address [facility] Co de Phone Number [facility] [address] [place] [address] * (ABNORMAL) POC Blood Gas and Chemistries, Arterial - (10/17/2023 11:51 AM TREE SPECIALIST) pH, Art POC 7.36 7.35 - 7.45 [facility] pCO2, Art POC 39 35 - 45 mmHg [facility] pO2, Art POC 407(H) 80 - 108 mmHg [facility] Na, POC 131(L) 135 - 145 mmol/L [facility] K POC 5.5(H) 3.3 - 4.9 mmol/L [facility] Comment: Interpretive Data This method is not able to assess for hemolysis, which may falsely increase potassium concentrations. If further testing is needed to evaluate this result, consider in-laboratory plasma potassium. Current Interpretive Data was last revised on 2022. Cl, POC 97 97 - 110 mmol/L [facility] Ionized Ca, POC 3.99(L) 4.50 - 5.10 mg/dL [facility] Glucose, POC 115 70 - 199 mg/dL [facility] Lactate, POC 2.8(H) 0.0 - 2.0 mmol/L [facility] O2Hb, Art POC 97.2(H) 90.0 - 95.0 % [facility] Carboxhgb fract 0.0 0.0 - 2.9 % [facility] Methemoglobin 0.9 0.0 - 1.9 % [facility] HHb, POC 1.9 0.0 - 5.0 % [facility] SO2 (oren) arterial 98(H) 90 - 95 % [facility] Total CO2, Art POC 23 22 - 32 mmol/L [facility] BE, art, POC -3.2(L) -2.0 - 2.0 mmol/L [facility] HCO3, Art POC 22 20 - 30 mmol/L [facility] Hct, POC 24.0(L) 38.9 - 50.3 % [facility] Total Hb, POC 7.9(L) 13.0 - 17.5 g/dL [facility] Blood 10/17/2023 11:5 1 AM TREE SPECIALIST 10/17/2023 11:51 AM TREE SPECIALIST us Jovani Kat DO LAB POCT ORDERABLES - DE VICE Final Result Performing Organization Address [facility]/ZIP Co de Phone Number [facility] [address] [place] [address] * (ABNORMAL) POC Activated Clotting Time, High Range (10/17/2023 11:50 AM TREE SPECIALIST) ACT 507(H) 87 - 138 sec [facility] Blood 10/17/2023 11:5 0 AM TREE SPECIALIST 10/17/2023 11:50 AM TREE SPECIALIST Jaqueline Valero MD LAB BLOOD ORDERABLES Final Result Performing Organization Address [facility]/ZIP Co de Phone Number [facility] [address] [place] [address] * (ABNORMAL) POC Activated Clotting Time, High Range (10/17/2023 11:22 AM TREE SPECIALIST) ACT 582(H) 87 - 138 sec [facility] Blood 10/17/2023 11:2 2 AM TREE SPECIALIST 10/17/2023 11:22 AM TREE SPECIALIST Jaqueline Valero MD LAB BLOOD ORDERABLES Final Result [facility] [address] Department [place] [address] * (ABNORMAL) POC Blood Gas and Chemistries, Arterial - (10/17/2023 11:20 AM TREE SPECIALIST) pH, Art POC 7.32(L) 7.35 - 7.45 [facility] pCO2, Art POC 41 35 - 45 mmHg [facility] pO2, Art POC 362(H) 80 - 108 mmHg [facility] Na, POC 130(L) 135 - 145 mmol/L [facility] K POC 4.5 3.3 - 4.9 mmol/L [facility] Comment: Interpretive Data This method is not able to assess for hemolysis, which may falsely increase potassium concentrations. If further testing is needed to evaluate this result, consider in-laboratory plasma potassium. Current Interpretive Data was last revised on 2022. Cl, POC 97 97 - 110 mmol/L [facility] Ionized Ca, POC 4.19(L) 4.50 - 5.10 mg/dL [facility] Glucose, POC 133 70 - 199 mg/dL [facility] Lactate, POC 2.1(H) 0.0 - 2.0 mmol/L [facility] O2Hb, Art POC 97.8(H) 90.0 - 95.0 % [facility] Carboxhgb fract 0.1 0.0 - 2.9 % [facility] Methemoglobin 0.5 0.0 - 1.9 % [facility] HHb, POC 1.6 0.0 - 5.0 % [facility] SO2 (oren) arterial 98(H) 90 - 95 % [facility] Total CO2, Art POC 22 22 - 32 mmol/L [facility] BE, art, POC -4.7(L) -2.0 - 2.0 mmol/L [facility] HCO3, Art POC 21 20 - 30 mmol/L [facility] Hct, POC 25.0(L) 38.9 - 50.3 % [facility] Total Hb, POC 8.2(L) 13.0 - 17.5 g/dL [facility] Blood 10/17/2023 11:2 0 AM TREE SPECIALIST 10/17/2023 11:20 AM TREE SPECIALIST Jovani Kat DO LAB POCT ORDERABLES - DE VICE Final Result Performing Organization Address [facility] Co de Phone Number [facility] [address] [facility] [place] [place] [address] * (ABNORMAL) POC Activated Clotting Time, High Range (10/17/2023 11:05 AM TREE SPECIALIST) ACT 533(H) 87 - 138 sec [facility] Blood 10/17/2023 11:0 5 AM TREE SPECIALIST 10/17/2023 11:05 AM TREE SPECIALIST Jaqueline Valero MD LAB BLOOD ORDERABLES Final Result Performing Organization Address [facility] Co de Phone Number [facility] [address] [facility] [place] [employer] [place] [address] * (ABNORMAL) POC Activated Clotting Time, High Range (10/17/2023 10:53 AM TREE SPECIALIST) ACT 494(H) 87 - 138 sec [facility] Blood 10/17/2023 10:5 3 AM TREE SPECIALIST 10/17/2023 10:53 AM TREE SPECIALIST Jaqueline Valero MD LAB BLOOD ORDERABLES Final Result Performing Organization Address [facility] Co de Phone Number [facility] [address] [facility] [place] [place] [address] * (ABNORMAL) POC Activated Clotting Time, High Range (10/17/2023 10:38 AM TREE SPECIALIST) ACT 583(H) 87 - 138 sec [facility] Blood 10/17/2023 10:3 8 AM TREE SPECIALIST 10/17/2023 10:38 AM TREE SPECIALIST us Jaqueline Valero MD LAB BLOOD ORDERABLES Final Result [facility] [address] Department [place] [address] * (ABNORMAL) POC Blood Gas and Chemistries, Arterial - (10/17/2023 10:38 AM TREE SPECIALIST) pH, Art POC 7.34(L) 7.35 - 7.45 [facility] pCO2, Art POC 42 35 - 45 mmHg [facility] pO2, Art POC 357(H) 80 - 108 mmHg [facility] Na, POC 132(L) 135 - 145 mmol/L [facility] K POC 4.7 3.3 - 4.9 mmol/L [facility] Comment: Interpretive Data This method is not able to assess for hemolysis, which may falsely increase potassium concentrations. If further testing is needed to evaluate this result, consider in-laboratory plasma potassium. Current Interpretive Data was last revised on 2022. Cl, POC 96(L) 97 - 110 mmol/L [facility] Ionized Ca, POC 4.18(L) 4.50 - 5.10 mg/dL [facility] Glucose, POC 170 70 - 199 mg/dL [facility] Lactate, POC 1.8 0.0 - 2.0 mmol/L [facility] O2Hb, Art POC 97.7(H) 90.0 - 95.0 % [facility] Carboxhgb fract 0.0 0.0 - 2.9 % [facility] Methemoglobin 0.7 0.0 - 1.9 % [facility] HHb, POC 1.5 0.0 - 5.0 % [facility] SO2 (oren) arterial 98(H) 90 - 95 % [facility] Total CO2, Art POC 24 22 - 32 mmol/L [facility] BE, art, POC -2.9(L) -2.0 - 2.0 mmol/L [facility] HCO3, Art POC 23 20 - 30 mmol/L [facility] Hct, POC 24.0(L) 38.9 - 50.3 % [facility] Total Hb, POC 8.0(L) 13.0 - 17.5 g/dL [facility] Blood 10/17/2023 10:3 8 AM TREE SPECIALIST 10/17/2023 10:38 AM TREE SPECIALIST us Jovani Kat DO LAB POCT ORDERABLES - DE VICE Final Result Performing Organization Address City/[facility]/ZIP Co de Phone Number [facility] [address] Department [place] [address] * (ABNORMAL) POC Activated Clotting Time, High Range (10/17/2023 10:24 AM TREE SPECIALIST) ACT 505(H) 87 - 138 sec [facility] Blood 10/17/2023 10:2 4 AM TREE SPECIALIST 10/17/2023 10:24 AM TREE SPECIALIST Jaqueline Valero MD LAB BLOOD ORDERABLES Final Result Performing Organization Address [facility]/ZIP Co de Phone Number [facility] [address] Department [place] [address] * (ABNORMAL) POC Blood Gas and Chemistries, Venous - (10/17/2023 10:21 AM TREE SPECIALIST) pH, Juice POC 7.27(L) 7.32 - 7.45 [facility] pCO2, juice POC 53(H) 40 - 50 mmHg [facility] pO2, juice POC 43(H) 35 - 42 mmHg [facility] Na, POC 133(L) 135 - 145 mmol/L [facility] K POC 4.9 3.3 - 4.9 mmol/L [facility] Comment: Interpretive Data This method is not able to assess for hemolysis, which may falsely increase potassium concentrations. If further testing is needed to evaluate this result, consider in-laboratory plasma potassium. Current Interpretive Data was last revised on 2022. Cl, POC 95(L) 97 - 110 mmol/L [facility] Ionized Ca, POC 4.19(L) 4.50 - 5.10 mg/dL [facility] Glucose, POC 182 70 - 199 mg/dL [facility] Lactate, POC 1.5 0.0 - 2.0 mmol/L [facility] O2Hb, Juice POC 67.4(L) 90.0 - 95.0 % [facility] Carboxhgb fract 0.8 0.0 - 2.9 % [facility] Methemoglobin 0.7 0.0 - 1.9 % [facility] HHb, POC 31.0(H) 0.0 - 5.0 % [facility] O2 Sat, Juice POC (Oren) 68 68 - 77 % [facility] Total CO2, juice POC 26 22 - 32 mmol/L [facility] Base excess, juice POC -2.6 mmol/L [facility] HCO3, Juice POC 22 20 - 30 mmol/L [facility] Hct, POC 23.0(L) 38.9 - 50.3 % [facility] Total Hb, POC 7.6(L) 13.0 - 17.5 g/dL [facility] Blood 10/17/2023 10:2 1 AM TREE SPECIALIST 10/17/2023 10:21 AM TREE SPECIALIST us Jovani Kat DO LAB POCT ORDERABLES - DE VICE Final Result Performing Organization Address City/[facility]/ZIP Co de Phone Number [facility] [address] [place] [address] * (ABNORMAL) POC Activated Clotting Time, High Range (10/17/2023 10:12 AM TREE SPECIALIST) ACT 467(H) 87 - 138 sec [facility] Blood 10/17/2023 10:1 2 AM TREE SPECIALIST 10/17/2023 10:12 AM TREE SPECIALIST us Jaqueline Valero MD LAB BLOOD ORDERABLES Final Result [facility] [address] [place] [address] * (ABNORMAL) POC Blood Gas and Chemistries, Arterial - (10/17/2023 10:11 AM TREE SPECIALIST) pH, Art POC 7.25(L) 7.35 - 7.45 [facility] pCO2, Art POC 40 35 - 45 mmHg [facility] pO2, Art POC 400(H) 80 - 108 mmHg [facility] Na, POC 129(L) 135 - 145 mmol/L [facility] K POC 4.6 3.3 - 4.9 mmol/L [facility] Comment: Interpretive Data This method is not able to assess for hemolysis, which may falsely increase potassium concentrations. If further testing is needed to evaluate this result, consider in-laboratory plasma potassium. Current Interpretive Data was last revised on 2022. Cl, POC 96(L) 97 - 110 mmol/L [facility] Ionized Ca, POC 4.08(L) 4.50 - 5.10 mg/dL [facility] Glucose, POC 182 70 - 199 mg/dL [facility] Lactate, POC 1.3 0.0 - 2.0 mmol/L [facility] O2Hb, Art POC 98.1(H) 90.0 - 95.0 % [facility] Carboxhgb fract 0.3 0.0 - 2.9 % [facility] Methemoglobin 0.6 0.0 - 1.9 % [facility] HHb, POC 0.9 0.0 - 5.0 % [facility] SO2 (oren) arterial 99(H) 90 - 95 % [facility] Total CO2, Art POC 19(L) 22 - 32 mmol/L [facility] BE, art, POC -9.0(L) -2.0 - 2.0 mmol/L [facility] HCO3, Art POC 18(L) 20 - 30 mmol/L [facility] Hct, POC 22.0(L) 38.9 - 50.3 % [facility] Total Hb, POC 7.4(L) 13.0 - 17.5 g/dL [facility] Blood 10/17/2023 10:1 1 AM TREE SPECIALIST 10/17/2023 10:11 AM TREE SPECIALIST us Jovani Kat DO LAB POCT ORDERABLES - DE VICE Final Result [facility] [address] Department [place] [address] * (ABNORMAL) POC Blood Gas and Chemistries, Arterial - (10/17/2023 9:47 AM TREE SPECIALIST) pH, Art POC 7.30(L) 7.35 - 7.45 [facility] pCO2, Art POC 40 35 - 45 mmHg [facility] pO2, Art POC 65(L) 80 - 108 mmHg [facility] Na, POC 130(L) 135 - 145 mmol/L [facility] K POC 4.3 3.3 - 4.9 mmol/L [facility] Comment: Interpretive Data This method is not able to assess for hemolysis, which may falsely increase potassium concentrations. If further testing is needed to evaluate this result, consider in-laboratory plasma potassium. Current Interpretive Data was last revised on 2022. Cl, POC 97 97 - 110 mmol/L [facility] Ionized Ca, POC 4.39(L) 4.50 - 5.10 mg/dL [facility] Glucose, POC 202(H) 70 - 199 mg/dL [facility] Lactate, POC 1.1 0.0 - 2.0 mmol/L [facility] O2Hb, Art POC 90.8 90.0 - 95.0 % [facility] Carboxhgb fract 0.7 0.0 - 2.9 % [facility] Methemoglobin 0.0 0.0 - 1.9 % [facility] HHb, POC 8.5(H) 0.0 - 5.0 % [facility] SO2 (oren) arterial 91 90 - 95 % [facility] Total CO2, Art POC 21(L) 22 - 32 mmol/L [facility] BE, art, POC -6.2(L) -2.0 - 2.0 mmol/L [facility] HCO3, Art POC 20 20 - 30 mmol/L [facility] Hct, POC 26.0(L) 38.9 - 50.3 % [facility] Total Hb, POC 8.6(L) 13.0 - 17.5 g/dL [facility] Blood 10/17/2023 9:47 AM TREE SPECIALIST 10/17/2023 9:47 AM TREE SPECIALIST us Jovani Kat DO LAB POCT ORDERABLES - DE VICE Final Result Performing Organization Address [facility] Co de Phone Number [facility] [address] Department [place] [address] * (ABNORMAL) POC Activated Clotting Time, High Range (10/17/2023 9:44 AM TREE SPECIALIST) ACT 428(H) 87 - 138 sec [facility] Blood 10/17/2023 9:44 AM TREE SPECIALIST 10/17/2023 9:44 AM TREE SPECIALIST us Jaqueline Valero MD LAB BLOOD ORDERABLES Final Result Performing Organization Address [facility] Co de Phone Number [facility] [address] Department [place] [address] * Prepare cryoprecipitate (pooled units): 2 Units (10/17/2023 9:12 AM TREE SPECIALIST) [facility] Product code [id number] Unit Number [id number] M [facility] Product Blood Type OPOS [facility] Dispense Status PRESUMED TRANSFUSED [facility] Product code [id number] [facility] Unit Number [id number] I [facility] Product Blood Type OPOS [facility] Dispense Status PRESUMED TRANSFUSED [facility] Blood (Blood, Venous) 10/17/2023 9:12 AM TREE SPECIALIST Narrative [facility] - 10/17/2023 10:15 PM TREE SPECIALIST Other indication->CTOR Cryo # of [id number] Reasons:-Other (Specify)} us Ayden Alan MD BLOOD BANK PRODUCT ORDERABLES Final Result Performing Organization Address [facility] Co de Phone Number [facility] [address] [place] [address] * Prepare plasma: 2 Units (10/17/2023 9:12 AM TREE SPECIALIST) Product code [id number] [facility] Unit Number [id number]- Y [facility] Product Blood Type APOS [facility] Dispense Status PRESUMED TRANSFUSED [facility] Product code [id number] Unit Number [id number] N [facility] Product Blood Type ANEG [facility] Dispense Status PRESUMED TRANSFUSED [facility] Blood (Blood, Venous) 10/17/2023 9:12 AM TREE SPECIALIST Narrative [facility] - 10/17/2023 10:15 PM TREE SPECIALIST Other indication->CTOR Date required:-20231017 FFP # of Units:-2-Units Reasons:-Other (Specify)} Ayden Alan MD BLOOD BANK PRODUCT ORDERABLES Final Result Performing Organization Address [facility] de Phone Number [facility] [address] [facility] [place] [employer] [place] [address] * Prepare platelets: 1 Units (10/17/2023 9:12 AM TREE SPECIALIST) Product code [id number] Unit Number [id number] A [facility] Product Blood Type BPOS [facility] Dispense Status PRESUMED TRANSFUSED [facility] Blood (Blood, Venous) 10/17/2023 9:12 AM TREE SPECIALIST Narrative [facility] - 10/17/2023 10:15 PM TREE SPECIALIST Other indication->CTOR Are special requirements needed? (all products are leukoreduced)->No Date required:-20231017 PLT # of Units:-1-Units Reasons:-Other (Specify)} Ayden Alan MD BLOOD BANK PRODUCT ORDERABLES Final Result Performing Organization Address [facility] de Phone Number [facility] [address] [place] [address] * POC Activated Clotting Time, High Range (10/17/2023 8:19 AM TREE SPECIALIST) [facility] ACT 97 87 - 138 sec [facility] Blood 10/17/2023 8:19 AM TREE SPECIALIST 10/17/2023 8:19 AM TREE SPECIALIST Jaqueline Valero MD LAB BLOOD ORDERABLES Final Result Performing Organization Address [facility] de Phone Number [facility] [address] Department [place] [address] * (ABNORMAL) POCT glucose (10/17/2023 7:47 AM TREE SPECIALIST) [facility] Glucose, POC 279(H) 70 - 140 mg/dL [facility] Comment: For Glucose values <35 mg/dl when Hematocrit is >60 mg/dl,the test may not accurately detect significant hypoglycemia,and testing in the Laboratory should be considered if clinically indicated. Blood 10/17/2023 7:47 AM TREE SPECIALIST 10/17/2023 7:47 AM TREE SPECIALIST Result [facility] Jovani Kat DO LAB POCT ORDERABLES - DE VICE Final Result Performing Organization Address [facility] de Phone Number [facility] [address] Department [place] [address] * (ABNORMAL) POCT glucose (10/17/2023 5:50 AM TREE SPECIALIST) [facility] Glucose, POC 307(H) 70 - 140 mg/dL [facility] Comment: For Glucose values <35 mg/dl when Hematocrit is >60 mg/dl,the test may not accurately detect significant hypoglycemia,and testing in the Laboratory should be considered if clinically indicated. Blood 10/17/2023 5:50 AM TREE SPECIALIST 10/17/2023 5:50 AM TREE SPECIALIST Frank Cody MD LAB POCT ORDERABLES - DEVICE Fin al Result Performing Organization Address [facility]/State/ZIP Co de Phone Number [facility] [address] Department [place] [address] * US Carotids (10/17/2023 5:10 AM TREE SPECIALIST) Anatomical Region Laterality Modality Vascular Bilateral Ultrasound 10/17/2023 1:01 PM TREE SPECIALIST Impressions 10/17/2023 1:01 PM TREE SPECIALIST 1) ??Plaquing of the right internal carotid [...] by: MD Luis Snyder 10/17/2023 1:01 PM TREE SPECIALIST DATE:10/17/2023 4:30 AM EXAM: Duplex imaging of [...] * (ABNORMAL) POCT glucose (10/17/2023 2:29 AM TREE SPECIALIST) Glucose, POC 288(H) 70 - 140 mg/dL [facility] Comment: For Glucose values <35 mg/dl when Hematocrit is >60 mg/dl,the test may not accurately detect significant hypoglycemia,and testing in the Laboratory should be considered if clinically indicated. Blood 10/17/2023 2:29 AM TREE SPECIALIST 10/17/2023 2:29 AM TREE SPECIALIST Frank Cody MD LAB POCT ORDERABLES - DEVICE Fin al Result Performing Organization Address [facility] Co de Phone Number [facility] [address] Department [place] [address] * (ABNORMAL) POCT glucose (10/17/2023 12:51 AM TREE SPECIALIST) Glucose, POC 242(H) 70 - 140 mg/dL [facility] Comment: For Glucose values <35 mg/dl when Hematocrit is >60 mg/dl,the test may not accurately detect significant hypoglycemia,and testing in the Laboratory should be considered if clinically indicated. Blood 10/17/2023 12:5 1 AM TREE SPECIALIST 10/17/2023 12:51 AM TREE SPECIALIST Frank Cody MD LAB POCT ORDERABLES - DEVICE Fin al Result Performing Organization Address [facility] Co de Phone Number [facility] [address] [place] [place] [address] * (ABNORMAL) Differential, auto (10/17/2023 12:29 AM TREE SPECIALIST) Neutrophil abs 6.4 1.5 - 6.5 K/cumm [facility] Imm gran abs 0.2(H) 0.0 - 0.1 K/cumm [facility] Lymphocyte abs 1.6 0.8 - 3.3 K/cumm [facility] Monocyte abs 1.1(H) 0.2 - 0.8 K/cumm [facility] Eosinophil abs 0.3 0.0 - 0.5 K/cumm [facility] Basophil abs 0.0 0.0 - 0.1 K/cumm [facility] Neutrophil pct 66.0 % [facility] Comment: Interpretive Data Percent cell count reference ranges are not reported, since discordance with absolute values may lead to misinterpretation of CBC data. Current Interpretive Data was last revised on 2017. Imm gran pct 2.1 % [facility] Comment: Interpretive Data Percent cell count reference ranges are not reported, since discordance with absolute values may lead to misinterpretation of CBC data. Current Interpretive Data was last revised on 2017. Lymphocyte pct 16.8 % [facility] Comment: Interpretive Data Percent cell count reference ranges are not reported, since discordance with absolute values may lead to misinterpretation of CBC data. Current Interpretive Data was last revised on 2017. Monocyte pct 11.6 % [facility] Comment: Interpretive Data Percent cell count reference ranges are not reported, since discordance with absolute values may lead to misinterpretation of CBC data. Current Interpretive Data was last revised on 2017. Eosinophil pct 3.1 % [facility] Comment: Interpretive Data Percent cell count reference ranges are not reported, since discordance with absolute values may lead to misinterpretation of CBC data. Current Interpretive Data was last revised on 2017. Basophil pct 0.4 % [facility] Comment: Interpretive Data Percent cell count reference ranges are not reported, since discordance with absolute values may lead to misinterpretation of CBC data. Current Interpretive Data was last revised on 2017. Blood 10/17/2023 12:2 9 AM TREE SPECIALIST 10/17/2023 12:42 AM TREE SPECIALIST us Vinay Pratt DO LAB BLOOD ORDERABLES F inal Result [facility] [address] Department [place] [address] * (ABNORMAL) aPTT (10/17/2023 12:29 AM TREE SPECIALIST) Pathologist [facility] aPTT 92(H) 28 - 38 sec [facility] Comment: Interpretive Data Heparin therapeutic range: 66.0 - 100.0 seconds. Range based on correlation with therapeutic heparin activity range of 0.3 - 0.7 Units/mL. Current interpretive data was last revised on 2023. Blood 10/17/2023 12:2 9 AM TREE SPECIALIST 10/17/2023 12:43 AM TREE SPECIALIST us Frank Cody MD LAB BLOOD ORDERABLES Final Resul t Performing Organization Address [facility] Co de Phone Number [facility] [address] Department [place] [address] * (ABNORMAL) CBC with auto differential (10/17/2023 12:29 AM TREE SPECIALIST) [facility] WBC 9.7 3.8 - 9.9 K/cumm [facility] Hgb 9.0(L) 13.0 - 17.5 g/dL [facility] Hct 27.4(L) 38.9 - 50.3 % [facility] Plt 289 150 - 400 K/cumm [facility] MPV 10.7 9.1 - 12.3 fL [facility] RBC 3.04(L) 4.30 - 5.80 M/cumm [facility] MCV 90.1 81.3 - 96.4 fL [facility] MCH 29.6 27.1 - 33.3 pg [facility] MCHC 32.8 32.3 - 35.7 g/dL [facility] RDW CV 14.7 11.1 - 14.9 % [facility] RDW SD 46.4 35.7 - 48.1 fL [facility] NRBC abs 0.03(H) 0.00 - 0.01 K/cumm [facility] Blood 10/17/2023 12:2 9 AM TREE SPECIALIST 10/17/2023 12:42 AM TREE SPECIALIST Vinay Pratt DO LAB BLOOD ORDERABLES F inal Result Performing Organization Address City/[facility] Co de Phone Number [facility] [address] [facility] [place] [employer] [place] [address] * Type and screen (10/16/2023 7:51 PM TREE SPECIALIST) Maribel, indirect Negative ABO Rh A Positive [facility] Blood 10/16/2023 7:51 PM TREE SPECIALIST 10/16/2023 8:09 PM TREE SPECIALIST us Frank Cody MD LAB BLOOD BANK TEST ORDERABLES F inal Result Performing Organization Address [facility] Co de Phone Number [facility] [address] [facility] [employer] [place], [place] [address] * POCT glucose (10/16/2023 7:49 PM TREE SPECIALIST) Glucose, POC 114 70 - 140 mg/dL [facility] Comment: For Glucose values <35 mg/dl when Hematocrit is >60 mg/dl,the test may not accurately detect significant hypoglycemia,and testing in the Laboratory should be considered if clinically indicated. Blood 10/16/2023 7:49 PM TREE SPECIALIST 10/16/2023 7:49 PM TREE SPECIALIST us Frank Cody MD LAB POCT ORDERABLES - DEVICE Fin al Result Performing Organization Address [facility] Co de Phone Number [facility] [address] [facility] [place] [employer] [place] [address] * POCT glucose (10/16/2023 5:35 PM TREE SPECIALIST) Glucose, POC 76 70 - 140 mg/dL [facility] Comment: For Glucose values <35 mg/dl when Hematocrit is >60 mg/dl,the test may not accurately detect significant hypoglycemia,and testing in the Laboratory should be considered if clinically indicated. Blood 10/16/2023 5:35 PM TREE SPECIALIST 10/16/2023 5:35 PM TREE SPECIALIST us Frank Cody MD LAB POCT ORDERABLES - DEVICE Fin al Result [facility] [address] Department [place] [address] * TRANSTHORACIC ECHO (TTE) COMPLETE W DOPPLER/CF W CONTRAST (10/16/2023 4:47 PM TREE SPECIALIST) Anatomical Region Laterality Modality Ultrasound 10/16/2023 11:3 9 AM TREE SPECIALIST Narrative 10/16/2023 5:02 PM TREE SPECIALIST [facility] [address] [place] [address] ECHOCARDIOGRAM Patient Name: JUVENAL GARVIN C : 1970 Study Date: 10/16/2023 11:39:54 AM Gender: M Tech: Location: [address] Provider: GUERLINE RODRIGUEZ ?Height(Cm): 178 BSA: 2.5 Weight(Kg): 126.1 BP: 125/75 ?Order Provider: GUERLINE RODRIGUEZ - PROCEDURES: Echocardiographic Report: Transthoracic Echocardiogram with 2D, M-Mode, Spectral and Color Flow Doppler examination and administration of intravenous contrast. INDICATIONS: Coronary artery disease, eek vessel. Measurements: 2D/M Mode ? Doppler Measurement [...] regurgitation. Electronically Signed By: Dimitrios Ames MD, [facility] 2023-10-16 17:01:58 TREE SPECIALIST Procedure Note Dimitrios Ames MD - 10/16/2023 [facility] [address] [place] [address] ECHOCARDIOGRAM Patient Name: JUVENAL GARVIN C : 1970 Study Date: 10/16/2023 11:39:54 AM Gender: M Tech: Location: [address] Ref Provider: GUERLINE RODRIGUEZ Height(Cm): 178 BSA: 2.5 Weight(Kg): 126.1 BP: 125/75 Order Provider: GUERLINE RODRIGUEZ - PROCEDURES: Echocardiographic Report: Transthoracic Echocardiogram with 2D, M-Mode, Spectral and Color FlowDoppler examination and administration of intravenous contrast. INDICATIONS: Coronary artery disease, eek vessel. Measurements: 2D/M ModeDoppler Measurement Value Normal [...] tricuspidregurgitation. Electronically Signed By: Dimitrios Ames MD, [facility] 2023-10-16 17:01:58 TREE SPECIALIST us Guerline GRACE CV ECHO PROCEDURES Final Res ult * (ABNORMAL) aPTT (10/16/2023 3:50 PM TREE SPECIALIST) aPTT 73(H) 28 - 38 sec [facility] Comment: Interpretive Data Heparin therapeutic range: 66.0 - 100.0 seconds. Range based on correlation with therapeutic heparin activity range of 0.3 - 0.7 Units/mL. Current interpretive data was last revised on 2023. Blood 10/16/2023 3:50 PM TREE SPECIALIST 10/16/2023 3:50 PM TREE SPECIALIST us Frank Cdoy MD LAB BLOOD ORDERABLES Final Resul t [facility] [address] Department [place] [address] * (ABNORMAL) Lipid panel (10/16/2023 3:44 PM TREE SPECIALIST) Cholesterol 89 30 - 199 mg/dL [facility] Comment: Interpretive Data Ages < or [...] revised on 2018. Triglycerides 106 <=149 mg/dL [facility] Comment: Interpretive Data Ages < or [...] revised on 2018. HDL 34(L) >=40 mg/dL [facility] Comment: Interpretive Data Ages < or [...] on 2018. LDL, calculated 34 <=129 mg/dL [facility] Comment: Interpretive Data Ages < or [...] revised on 2018. Non-HDL Cholesterol 55 mg/dL [facility] Comment: Interpretive Data Ages < or [...] last revised on 2018. Chol/HDL ratio 3 [facility] Blood 10/16/2023 3:44 PM TREE SPECIALIST 10/16/2023 3:53 PM TREE SPECIALIST Jaqueline Valero MD LAB BLOOD ORDERABLES Final Result [facility] [address] Department [place] [address] * (ABNORMAL) Hemoglobin A1c (10/16/2023 3:27 PM TREE SPECIALIST) Hgb A1C 8.1(H) 4.0 - 5.6 % [facility] Estimated Average Glucose 186 mg/dL [facility] Comment: The ADA recommends reporting an estimated Average Glucose (eAG) with all Hemoglobin A1c results using the equation derived from a study of 507 normal and diabetic adults. ??Minority populations were underrepresented and children were not included. ?? (Diabetes Care 31:9988-9254, 2008). ??The eAG is not equivalent to a fasting glucose. Blood 10/16/2023 3:27 PM TREE SPECIALIST 10/16/2023 3:27 PM TREE SPECIALIST Jaqueline Valero MD LAB BLOOD ORDERABLES Final Result [facility] [address] Department [place] [address] * XR Chest PA Lateral 2 View (10/16/2023 3:12 PM TREE SPECIALIST) Anatomical Region Laterality Modality Body, Chest N/A Computed Radiogr aphy 10/16/2023 3:15 PM TREE SPECIALIST Impressions 10/16/2023 3:15 PM TREE SPECIALIST Small bilateral pleural effusions with mild bibasilar atelectasis. Small volume fluid tracks into the right minor fissure. ??Mild pulmonary edema. ??No pneumothorax. ??Heart size and mediastinal contours are unchanged. Electronically signed by: Salina Garnica M.D. Narrative 10/16/2023 3:15 PM TREE SPECIALIST EXAMINATION: XR CHEST PA LATERAL 2 VIEWS COMPARISON: 10/15/2023 Procedure Note Salina Garnica MD - 10/16/2023 EXAMINATION: XR CHEST PA LATERAL 2 VIEWS COMPARISON: 10/15/2023 IMPRESSION: Small bilateral pleural effusions with mild bibasilar atelectasis. Small volume fluid tracks into the right minor fissure. Mild pulmonary edema. No pneumothorax. Heart size and mediastinal contours are unchanged. Electronically signed by: aSlina Garnica M.D. Jaqueline Valero MD IMG XR PROCEDURES Final Re sult * ECG 12 lead (10/16/2023 2:17 PM TREE SPECIALIST) 10/16/2023 2:17 PM TREE SPECIALIST Narrative [facility] - 10/16/2023 9:14 PM TREE SPECIALIST Vent Rate: 61 bpm RR Interval: 981 msec ND Interval: 235 msec QRS Duration: 150 msec QT Interval: 447 msec QTC Interval: 449 msec P-R-T [place]: 70 - -11 - 134 degrees IMPRESSION: SINUS RHYTHM WITH FIRST DEGREE AV BLOCK LEFT BUNDLE BRANCH BLOCK ABNORMAL ECG Electronically Signed By: Payam White MD us Jaqueline Valero MD ECG ORDERABLES Final Resu lt Performing Organization Address City/[facility]/ZIP Co de Phone Number [facility] * Prepare RBC: 3 Units (10/16/2023 2:04 PM TREE SPECIALIST) Pathologist [facility] Product code [id number] [facility] Unit Number [id number] [facility] Product Blood Type APOS [facility] Dispense Status PRESUMED TRANSFUSED [facility] Product code [id number] Unit Number [id number] * [facility] Product Blood Type APOS [facility] Dispense Status PRESUMED TRANSFUSED [facility] Product code [id number] [facility] Unit Number [id number] M [facility] Product Blood Type APOS [facility] Dispense Status RETURNED [facility] Blood 10/16/2023 2:04 PM TREE SPECIALIST Narrative [facility] - 10/19/2023 7:08 AM TREE SPECIALIST Specify Procedure:->cabg/aortic valve replacement Are special requirements needed? (All products are leukoreduced and CMV- safe)- >No Date required:-[id number] LRRBC # of [id number] Reasons:-Hold for procedure (specify procedure)} us Jaqueline Valero MD BLOOD BANK PRODUCT ORDERAB LES Final Result Performing Organization Address [facility] Co de Phone Number [facility] [address] Department [place] [address] * POCT glucose (10/16/2023 12:22 PM TREE SPECIALIST) Pathologist [facility] Glucose, POC 74 70 - 140 mg/dL [facility] Comment: For Glucose values <35 mg/dl when Hematocrit is >60 mg/dl,the test may not accurately detect significant hypoglycemia,and testing in the Laboratory should be considered if clinically indicated. Blood 10/16/2023 12:2 2 PM TREE SPECIALIST 10/16/2023 12:22 PM TREE SPECIALIST us Frank Cody MD LAB POCT ORDERABLES - DEVICE Fin al Result Performing Organization Address [facility] de Phone Number [facility] [address] [place] [address] * (ABNORMAL) POCT glucose (10/16/2023 8:11 AM TREE SPECIALIST) Glucose, POC 266(H) 70 - 140 mg/dL [facility] Comment: For Glucose values <35 mg/dl when Hematocrit is >60 mg/dl,the test may not accurately detect significant hypoglycemia,and testing in the Laboratory should be considered if clinically indicated. Blood 10/16/2023 8:11 AM TREE SPECIALIST 10/16/2023 8:11 AM TREE SPECIALIST us Frank Cody MD LAB POCT ORDERABLES - DEVICE Fin al Result Performing Organization Address [facility] de Phone Number [facility] [address] [facility] [place] [employer] [place] [address] * (ABNORMAL) POCT glucose (10/16/2023 4:48 AM TREE SPECIALIST) Glucose, POC 329(H) 70 - 140 mg/dL [facility] Comment: For Glucose values <35 mg/dl when Hematocrit is >60 mg/dl,the test may not accurately detect significant hypoglycemia,and testing in the Laboratory should be considered if clinically indicated. Blood 10/16/2023 4:48 AM TREE SPECIALIST 10/16/2023 4:48 AM TREE SPECIALIST us Frank Cody MD LAB POCT ORDERABLES - DEVICE Fin al Result Performing Organization Address [facility] de Phone Number [facility] [address] [facility] [place] [place] [address] * (ABNORMAL) POCT glucose (10/16/2023 12:37 AM TREE SPECIALIST) Glucose, POC 158(H) 70 - 140 mg/dL [facility] Comment: For Glucose values <35 mg/dl when Hematocrit is >60 mg/dl,the test may not accurately detect significant hypoglycemia,and testing in the Laboratory should be considered if clinically indicated. Blood 10/16/2023 12:3 7 AM TREE SPECIALIST 10/16/2023 12:37 AM TREE SPECIALIST Frank Cody MD LAB POCT ORDERABLES - DEVICE Fin al Result [facility] [address] Department [place] [address] * (ABNORMAL) Differential, auto (10/16/2023 12:31 AM TREE SPECIALIST) Neutrophil abs 4.5 1.5 - 6.5 K/cumm [facility] Imm gran abs 0.2(H) 0.0 - 0.1 K/cumm [facility] Lymphocyte abs 1.8 0.8 - 3.3 K/cumm [facility] Monocyte abs 1.0(H) 0.2 - 0.8 K/cumm [facility] Eosinophil abs 0.2 0.0 - 0.5 K/cumm [facility] Basophil abs 0.0 0.0 - 0.1 K/cumm [facility] Neutrophil pct 58.6 % [facility] Comment: Interpretive Data Percent cell count reference ranges are not reported, since discordance with absolute values may lead to misinterpretation of CBC data. Current Interpretive Data was last revised on 2017. Imm gran pct 2.1 % [facility] Comment: Interpretive Data Percent cell count reference ranges are not reported, since discordance with absolute values may lead to misinterpretation of CBC data. Current Interpretive Data was last revised on 2017. Lymphocyte pct 23.1 % [facility] Comment: Interpretive Data Percent cell count reference ranges are not reported, since discordance with absolute values may lead to misinterpretation of CBC data. Current Interpretive Data was last revised on 2017. Monocyte pct 13.2 % [facility] Comment: Interpretive Data Percent cell count reference ranges are not reported, since discordance with absolute values may lead to misinterpretation of CBC data. Current Interpretive Data was last revised on 2017. Eosinophil pct 2.5 % [facility] Comment: Interpretive Data Percent cell count reference ranges are not reported, since discordance with absolute values may lead to misinterpretation of CBC data. Current Interpretive Data was last revised on 2017. Basophil pct 0.5 % [facility] Comment: Interpretive Data Percent cell count reference ranges are not reported, since discordance with absolute values may lead to misinterpretation of CBC data. Current Interpretive Data was last revised on 2017. Blood 10/16/2023 12:3 1 AM TREE SPECIALIST 10/16/2023 12:36 AM TREE SPECIALIST Vinay Pratt DO LAB BLOOD ORDERABLES F inal Result Performing Organization Address [facility] Co de Phone Number [facility] [address] Department [employer] [place] [address] * (ABNORMAL) aPTT (10/16/2023 12:31 AM TREE SPECIALIST) Pathologist [facility] aPTT 80(H) 28 - 38 sec [facility] Comment: Interpretive Data Heparin therapeutic range: 66.0 - 100.0 seconds. Range based on correlation with therapeutic heparin activity range of 0.3 - 0.7 Units/mL. Current interpretive data was last revised on 2023. Blood 10/16/2023 12:3 1 AM TREE SPECIALIST 10/16/2023 12:36 AM TREE SPECIALIST Frank Cody MD LAB BLOOD ORDERABLES Final Resul t Performing Organization Address [facility] Co de Phone Number [facility] [address] Department of [employer] [place], [place] [id number] * (ABNORMAL) CBC with auto differential (10/16/2023 12:31 AM TREE SPECIALIST) WBC 7.7 3.8 - 9.9 K/cumm [facility] Hgb 9.4(L) 13.0 - 17.5 g/dL [facility] Hct 29.7(L) 38.9 - 50.3 % [facility] Plt 330 150 - 400 K/cumm [facility] MPV 10.9 9.1 - 12.3 fL [facility] RBC 3.24(L) 4.30 - 5.80 M/cumm [facility] MCV 91.7 81.3 - 96.4 fL [facility] MCH 29.0 27.1 - 33.3 pg [facility] MCHC 31.6(L) 32.3 - 35.7 g/dL [facility] RDW CV 14.6 11.1 - 14.9 % [facility] RDW SD 47.2 35.7 - 48.1 fL [facility] NRBC abs 0.03(H) 0.00 - 0.01 K/cumm [facility] Blood 10/16/2023 12:3 1 AM TREE SPECIALIST 10/16/2023 12:36 AM TREE SPECIALIST Vinay Pratt DO LAB BLOOD ORDERABLES F inal Result Performing Organization Address [facility] Co de Phone Number [facility] [address] Department of [employer] [place], [place] [id number] * Check Sample (10/16/2023 12:27 AM TREE SPECIALIST) Pathologist [facility] ABO Rh A Positive HCLL OTHER 10/16/2023 12:2 7 AM TREE SPECIALIST 10/16/2023 2:18 PM TREE SPECIALIST Frank Cody MD LAB BLOOD ORDERABLES Final Resul t Performing Organization Address [facility] de Phone Number [facility] [address] Department [place] [employer] [place] [address] * POCT glucose (10/15/2023 11:20 PM TREE SPECIALIST) Glucose, POC 105 70 - 140 mg/dL [facility] Comment: For Glucose values <35 mg/dl when Hematocrit is >60 mg/dl,the test may not accurately detect significant hypoglycemia,and testing in the Laboratory should be considered if clinically indicated. Blood 10/15/2023 11:2 0 PM TREE SPECIALIST 10/15/2023 11:20 PM TREE SPECIALIST Frank Cody MD LAB POCT ORDERABLES - DEVICE Fin al Result Performing Organization Address [facility] de Phone Number [facility] [address] Department of [employer] [place], [place] [id number] * POCT glucose (10/15/2023 11:01 PM TREE SPECIALIST) Glucose, POC 93 70 - 140 mg/dL [facility] Comment: For Glucose values <35 mg/dl when Hematocrit is >60 mg/dl,the test may not accurately detect significant hypoglycemia,and testing in the Laboratory should be considered if clinically indicated. Glucose comment 1 Follow Protocol [facility] Blood 10/15/2023 11:0 1 PM TREE SPECIALIST 10/15/2023 11:01 PM TREE SPECIALIST Frank Cody MD LAB POCT ORDERABLES - DEVICE Fin al Result Performing Organization Address [facility] de Phone Number [facility] [address] [facility] [place] [employer] [place] [address] * POCT glucose (10/15/2023 10:45 PM TREE SPECIALIST) Glucose, POC 84 70 - 140 mg/dL [facility] Comment: For Glucose values <35 mg/dl when Hematocrit is >60 mg/dl,the test may not accurately detect significant hypoglycemia,and testing in the Laboratory should be considered if clinically indicated. Glucose comment 1 Follow Protocol [facility] Blood 10/15/2023 10:4 5 PM TREE SPECIALIST 10/15/2023 10:45 PM TREE SPECIALIST Frank Cody MD LAB POCT ORDERABLES - DEVICE Fin al Result Performing Organization Address [facility] de Phone Number [facility] [address] Department [employer] [place], [place] [id number] * (ABNORMAL) POCT glucose (10/15/2023 10:26 PM TREE SPECIALIST) Glucose, POC 69(L) 70 - 140 mg/dL [facility] Comment: For Glucose values <35 mg/dl when Hematocrit is >60 mg/dl,the test may not accurately detect significant hypoglycemia,and testing in the Laboratory should be considered if clinically indicated. Blood 10/15/2023 10:2 6 PM TREE SPECIALIST 10/15/2023 10:26 PM TREE SPECIALIST us Frank Cody MD LAB POCT ORDERABLES - DEVICE Fin al Result Performing Organization Address [facility] de Phone Number [facility] [address] Department [place] [address] * POCT glucose (10/15/2023 8:12 PM TREE SPECIALIST) Glucose, POC 73 70 - 140 mg/dL [facility] Comment: For Glucose values <35 mg/dl when Hematocrit is >60 mg/dl,the test may not accurately detect significant hypoglycemia,and testing in the Laboratory should be considered if clinically indicated. Blood 10/15/2023 8:12 PM TREE SPECIALIST 10/15/2023 8:12 PM TREE SPECIALIST Result [facility] us Frank Cody MD LAB POCT ORDERABLES - DEVICE Fin al Result Performing Organization Address [facility] de Phone Number [facility] [address] Department [place] [address] * POCT glucose (10/15/2023 5:10 PM TREE SPECIALIST) Glucose, POC 72 70 - 140 mg/dL [facility] Comment: For Glucose values <35 mg/dl when Hematocrit is >60 mg/dl,the test may not accurately detect significant hypoglycemia,and testing in the Laboratory should be considered if clinically indicated. Blood 10/15/2023 5:10 PM TREE SPECIALIST 10/15/2023 5:10 PM TREE SPECIALIST us Frank Cody MD LAB POCT ORDERABLES - DEVICE Fin al Result Performing Organization Address [facility] Co de Phone Number [facility] [address] [facility] [place] [employer] [place] [address] * (ABNORMAL) POCT glucose (10/15/2023 12:13 PM TREE SPECIALIST) Glucose, POC 155(H) 70 - 140 mg/dL [facility] Comment: For Glucose values <35 mg/dl when Hematocrit is >60 mg/dl,the test may not accurately detect significant hypoglycemia,and testing in the Laboratory should be considered if clinically indicated. Blood 10/15/2023 12:1 3 PM TREE SPECIALIST 10/15/2023 12:13 PM TREE SPECIALIST us Frank Cody MD LAB POCT ORDERABLES - DEVICE Fin al Result Performing Organization Address [facility] Co de Phone Number [facility] [address] [facility] [place] [employer] [place] [address] * (ABNORMAL) aPTT (10/15/2023 11:25 AM TREE SPECIALIST) aPTT 59(H) 28 - 38 sec [facility] Comment: Interpretive Data Heparin therapeutic range: 66.0 - 100.0 seconds. Range based on correlation with therapeutic heparin activity range of 0.3 - 0.7 Units/mL. Current interpretive data was last revised on 2023. Blood 10/15/2023 11:2 5 AM TREE SPECIALIST 10/15/2023 11:31 AM TREE SPECIALIST us Frank Cody MD LAB BLOOD ORDERABLES Final Resul t Performing Organization Address [facility]/ZIP Co de Phone Number [facility] [address] [facility] [place] [employer] [place] [address] * CT Chest WO Contrast (10/15/2023 11:00 AM TREE SPECIALIST) Anatomical Region Laterality Modality Body N/A Computed Tomogra phy 10/15/2023 11:5 8 AM TREE SPECIALIST Impressions 10/15/2023 11:58 AM TREE SPECIALIST 1. ??Small bilateral pleural effusions with mild bibasilar atelectasis. 2. ??Mildly enlarged likely reactive mediastinal lymph nodes. Attention on follow-up is recommended. Electronically signed by: Arjun Amador M.D. Narrative 10/15/2023 11:58 AM TREE SPECIALIST EXAMINATION: ??Computed tomography of the chest without [...] * (ABNORMAL) POCT glucose (10/15/2023 7:56 AM TREE SPECIALIST) Glucose, POC 249(H) 70 - 140 mg/dL [facility] Comment: For Glucose values <35 mg/dl when Hematocrit is >60 mg/dl,the test may not accurately detect significant hypoglycemia,and testing in the Laboratory should be considered if clinically indicated. Blood 10/15/2023 7:56 AM TREE SPECIALIST 10/15/2023 7:56 AM TREE SPECIALIST Frank Cody MD LAB POCT ORDERABLES - DEVICE Fin al Result Performing Organization Address [facility] Co de Phone Number [facility] [address] [email or web address] [address] * (ABNORMAL) POCT glucose (10/15/2023 5:34 AM TREE SPECIALIST) [facility] Glucose, POC 338(H) 70 - 140 mg/dL [facility] Comment: For Glucose values <35 mg/dl when Hematocrit is >60 mg/dl,the test may not accurately detect significant hypoglycemia,and testing in the Laboratory should be considered if clinically indicated. Glucose comment 1 RN/MD Notified [facility] Blood 10/15/2023 5:34 AM TREE SPECIALIST 10/15/2023 5:34 AM TREE SPECIALIST Result [facility] Frank Cody MD LAB POCT ORDERABLES - DEVICE Fin al Result Performing Organization Address [facility] Co de Phone Number [facility] [address] [email or web address] [address] * (ABNORMAL) POCT glucose (10/15/2023 4:35 AM TREE SPECIALIST) Glucose, POC 344(H) 70 - 140 mg/dL [facility] Comment: For Glucose values <35 mg/dl when Hematocrit is >60 mg/dl,the test may not accurately detect significant hypoglycemia,and testing in the Laboratory should be considered if clinically indicated. Glucose comment 1 RN/MD Notified [facility] Blood 10/15/2023 4:35 AM TREE SPECIALIST 10/15/2023 4:35 AM TREE SPECIALIST Frank Cody MD LAB POCT ORDERABLES - DEVICE Fin al Result Performing Organization Address [facility]/ZIP Co de Phone Number [facility] [address] Department [employer] [address] * (ABNORMAL) aPTT (10/15/2023 4:27 AM TREE SPECIALIST) aPTT 75(H) 28 - 38 sec [facility] Comment: Interpretive Data Heparin therapeutic range: 66.0 - 100.0 seconds. Range based on correlation with therapeutic heparin activity range of 0.3 - 0.7 Units/mL. Current interpretive data was last revised on 2023. Blood 10/15/2023 4:27 AM TREE SPECIALIST 10/15/2023 4:38 AM TREE SPECIALIST Narrative [facility] - 10/15/2023 4:55 AM TREE SPECIALIST Draw STAT PTT 6 hrs after initiation of heparin infusion, draw STAT PTT 6 hours after each dose change, and every 6 hours until 2 consecutive PTTs are within therapeutic range. Once two consecutive PTT's are therapeutic (66-100 seconds), then draw PTT every AM until heparin is discontinued. Vinay Pratt DO LAB BLOOD ORDERABLES F inal Result Performing Organization Address City/[facility]/ZIP Co de Phone Number [facility] [address] Department [employer] [address] * (ABNORMAL) POCT glucose (10/15/2023 1:30 AM TREE SPECIALIST) Glucose, POC 334(H) 70 - 140 mg/dL [facility] Comment: For Glucose values <35 mg/dl when Hematocrit is >60 mg/dl,the test may not accurately detect significant hypoglycemia,and testing in the Laboratory should be considered if clinically indicated. Blood 10/15/2023 1:30 AM TREE SPECIALIST 10/15/2023 1:30 AM TREE SPECIALIST us Frank Cody MD LAB POCT ORDERABLES - DEVICE Fin al Result [facility] [address] Department [place] [address] * (ABNORMAL) Renal function panel (10/15/2023 1:06 AM TREE SPECIALIST) Sodium 130(L) 135 - 145 mmol/L [facility] Potassium, pl 4.3 3.3 - 4.9 mmol/L [facility] Chloride 89(L) 97 - 110 mmol/L [facility] CO2 22 22 - 32 mmol/L [facility] Anion gap 19(H) 2 - 15 mmol/L [facility] BUN 78(H) 6 - 25 mg/dL [facility] Creatinine 10.57(H) 0.80 - 1.30 mg/dL [facility] Glucose 308(H) 70 - 199 mg/dL [facility] Comment: Interpretive Data Fasting glucose >/= [...] 2022. Calcium 8.2(L) 8.5 - 10.3 mg/dL [facility] Phosphorus, pl 5.7(H) 2.3 - 4.5 mg/dL [facility] Albumin 3.3(L) 3.5 - 5.0 g/dL [facility] Blood 10/15/2023 1:06 AM TREE SPECIALIST 10/15/2023 1:20 AM TREE SPECIALIST Frank Cody MD LAB BLOOD ORDERABLES Final Resul t Performing Organization Address City/[facility] Co de Phone Number [facility] [address] [place] [employer] [place] [address] * eGFR (10/15/2023 1:06 AM TREE SPECIALIST) eGFR 5 mL/min/1. 73 m2 [facility] Comment: Interpretive Data Reference Interval Normal [...] last reviewed 2021. Blood 10/15/2023 1:06 AM TREE SPECIALIST 10/15/2023 1:20 AM TREE SPECIALIST Frank Cdoy MD LAB BLOOD ORDERABLES Final Resul t Performing Organization Address City/[facility]/ZIP Co de Phone Number [facility] [address] Department [employer] [place], [place] [phone] * (ABNORMAL) aPTT (10/15/2023 1:06 AM TREE SPECIALIST) Pathologist [facility] aPTT 69(H) 28 - 38 sec [facility] Comment: Interpretive Data Heparin therapeutic range: 66.0 - 100.0 seconds. Range based on correlation with therapeutic heparin activity range of 0.3 - 0.7 Units/mL. Current interpretive data was last revised on 2023. Blood 10/15/2023 1:06 AM TREE SPECIALIST 10/15/2023 1:20 AM TREE SPECIALIST us Frank Cody MD LAB BLOOD ORDERABLES Final Resul t [facility] [address] Department [place] [address] * (ABNORMAL) Differential, auto (10/15/2023 1:06 AM TREE SPECIALIST) Pathologist [facility] Neutrophil abs 4.3 1.5 - 6.5 K/cumm [facility] Imm gran abs 0.1 0.0 - 0.1 K/cumm [facility] Lymphocyte abs 2.2 0.8 - 3.3 K/cumm [facility] Monocyte abs 0.9(H) 0.2 - 0.8 K/cumm [facility] Eosinophil abs 0.1 0.0 - 0.5 K/cumm [facility] Basophil abs 0.0 0.0 - 0.1 K/cumm [facility] Neutrophil pct 56.6 % [facility] Comment: Interpretive Data Percent cell count reference ranges are not reported, since discordance with absolute values may lead to misinterpretation of CBC data. Current Interpretive Data was last revised on 2017. Imm gran pct 1.2 % [facility] Comment: Interpretive Data Percent cell count reference ranges are not reported, since discordance with absolute values may lead to misinterpretation of CBC data. Current Interpretive Data was last revised on 2017. Lymphocyte pct 28.4 % [facility] Comment: Interpretive Data Percent cell count reference ranges are not reported, since discordance with absolute values may lead to misinterpretation of CBC data. Current Interpretive Data was last revised on 2017. Monocyte pct 12.0 % [facility] Comment: Interpretive Data Percent cell count reference ranges are not reported, since discordance with absolute values may lead to misinterpretation of CBC data. Current Interpretive Data was last revised on 2017. Eosinophil pct 1.5 % [facility] Comment: Interpretive Data Percent cell count reference ranges are not reported, since discordance with absolute values may lead to misinterpretation of CBC data. Current Interpretive Data was last revised on 2017. Basophil pct 0.3 % [facility] Comment: Interpretive Data Percent cell count reference ranges are not reported, since discordance with absolute values may lead to misinterpretation of CBC data. Current Interpretive Data was last revised on 2017. Blood 10/15/2023 1:06 AM TREE SPECIALIST 10/15/2023 1:20 AM TREE SPECIALIST us Vinay Pratt DO LAB BLOOD ORDERABLES F inal Result Performing Organization Address City/[facility]/ZIP Co de Phone Number [facility] [address] Department [place] [employer] [place] [address] * (ABNORMAL) Iron profile w/ IBC (10/15/2023 1:06 AM TREE SPECIALIST) Iron 72 50 - 150 mcg/dL [facility] TIBC 205(L) 250 - 400 mcg/dL [facility] Transferrin saturation 35 20 - 50 % [facility] Blood 10/15/2023 1:06 AM TREE SPECIALIST 10/15/2023 1:20 AM TREE SPECIALIST us Fernandez Carranza MD LAB BLOOD ORDERABLES Final Resu lt [facility] [address] Department [place] [employer] [place] [address] * (ABNORMAL) Ferritin (10/15/2023 1:06 AM TREE SPECIALIST) Ferritin 1,322(H) 30 - 400 ng/mL [facility] Blood 10/15/2023 1:06 AM TREE SPECIALIST 10/15/2023 1:20 AM TREE SPECIALIST us Fernandez Carranza MD LAB BLOOD ORDERABLES Final Resu lt Performing Organization Address [facility] Co de Phone Number [facility] [address] Department [employer] [place], [place] [phone] * (ABNORMAL) CBC with auto differential (10/15/2023 1:06 AM TREE SPECIALIST) [facility] WBC 7.6 3.8 - 9.9 K/cumm [facility] Hgb 9.4(L) 13.0 - 17.5 g/dL [facility] Hct 29.4(L) 38.9 - 50.3 % [facility] Plt 375 150 - 400 K/cumm [facility] MPV 11.0 9.1 - 12.3 fL [facility] RBC 3.23(L) 4.30 - 5.80 M/cumm [facility] MCV 91.0 81.3 - 96.4 fL [facility] MCH 29.1 27.1 - 33.3 pg [facility] MCHC 32.0(L) 32.3 - 35.7 g/dL [facility] RDW CV 14.0 11.1 - 14.9 % [facility] RDW SD 45.5 35.7 - 48.1 fL [facility] NRBC abs 0.02(H) 0.00 - 0.01 K/cumm [facility] Blood 10/15/2023 1:06 AM TREE SPECIALIST 10/15/2023 1:20 AM TREE SPECIALIST us Vinay Pratt DO LAB BLOOD ORDERABLES F inal Result Performing Organization Address [facility]/ZIP Co de Phone Number [facility] [address] Department of [employer] [place], [place] [phone] * (ABNORMAL) aPTT (10/14/2023 8:41 PM TREE SPECIALIST) aPTT 75(H) 28 - 38 sec [facility] Comment: Interpretive Data Heparin therapeutic range: 66.0 - 100.0 seconds. Range based on correlation with therapeutic heparin activity range of 0.3 - 0.7 Units/mL. Current interpretive data was last revised on 2023. Blood 10/14/2023 8:41 PM TREE SPECIALIST 10/14/2023 8:52 PM TREE SPECIALIST us Frank Cody MD LAB BLOOD ORDERABLES Final Resul t Performing Organization Address [facility] de Phone Number [facility] [address] [facility] [place] [employer] [place] [address] * (ABNORMAL) POCT glucose (10/14/2023 8:24 PM TREE SPECIALIST) Glucose, POC 232(H) 70 - 140 mg/dL [facility] Comment: For Glucose values <35 mg/dl when Hematocrit is >60 mg/dl,the test may not accurately detect significant hypoglycemia,and testing in the Laboratory should be considered if clinically indicated. Blood 10/14/2023 8:24 PM TREE SPECIALIST 10/14/2023 8:24 PM TREE SPECIALIST Result Todd Cody MD LAB POCT ORDERABLES - DEVICE Fin al Result Performing Organization Address [facility] de Phone Number [facility] [address] [facility] [place] [employer] [place] [address] * (ABNORMAL) POCT glucose (10/14/2023 5:28 PM TREE SPECIALIST) Glucose, POC 217(H) 70 - 140 mg/dL [facility] Comment: For Glucose values <35 mg/dl when Hematocrit is >60 mg/dl,the test may not accurately detect significant hypoglycemia,and testing in the Laboratory should be considered if clinically indicated. Blood 10/14/2023 5:28 PM TREE SPECIALIST 10/14/2023 5:28 PM TREE SPECIALIST us Frank Cody MD LAB POCT ORDERABLES - DEVICE Fin al Result Performing Organization Address [facility] Co de Phone Number [facility] [address] [facility] [employer] [place], [place] [phone] * (ABNORMAL) aPTT (10/14/2023 2:39 PM TREE SPECIALIST) aPTT 43(H) 28 - 38 sec [facility] Comment: Interpretive Data Heparin therapeutic range: 66.0 - 100.0 seconds. Range based on correlation with therapeutic heparin activity range of 0.3 - 0.7 Units/mL. Current interpretive data was last revised on 2023. Blood 10/14/2023 2:39 PM TREE SPECIALIST 10/14/2023 2:39 PM TREE SPECIALIST us Abelardo Randle MD LAB BLOOD ORDERABLES Final Result Performing Organization Address [facility] Co de Phone Number [facility] [address] [facility] [place] [employer] [place] [address] * POCT glucose (10/14/2023 12:15 PM TREE SPECIALIST) Glucose, POC 140 70 - 140 mg/dL [facility] Comment: For Glucose values <35 mg/dl when Hematocrit is >60 mg/dl,the test may not accurately detect significant hypoglycemia,and testing in the Laboratory should be considered if clinically indicated. Blood 10/14/2023 12:1 5 PM TREE SPECIALIST 10/14/2023 12:15 PM TREE SPECIALIST Frank Cody MD LAB POCT ORDERABLES - DEVICE Fin al Result Performing Organization Address [facility] Co de Phone Number [facility] [address] [facility] [employer] [place], [place] [phone] * POCT glucose (10/14/2023 11:06 AM TREE SPECIALIST) Glucose, POC 138 70 - 140 mg/dL [facility] Comment: For Glucose values <35 mg/dl when Hematocrit is >60 mg/dl,the test may not accurately detect significant hypoglycemia,and testing in the Laboratory should be considered if clinically indicated. Blood 10/14/2023 11:0 6 AM TREE SPECIALIST 10/14/2023 11:06 AM TREE SPECIALIST us Frank Cody MD LAB POCT ORDERABLES - DEVICE Fin al Result Performing Organization Address [facility] de Phone Number [facility] [address] [facility] [place] [employer] [place] [address] * POCT glucose (10/14/2023 8:34 AM TREE SPECIALIST) Glucose, POC 134 70 - 140 mg/dL [facility] Comment: For Glucose values <35 mg/dl when Hematocrit is >60 mg/dl,the test may not accurately detect significant hypoglycemia,and testing in the Laboratory should be considered if clinically indicated. Blood 10/14/2023 8:34 AM TREE SPECIALIST 10/14/2023 8:34 AM TREE SPECIALIST us Frank Cody MD LAB POCT ORDERABLES - DEVICE Fin al Result Performing Organization Address [facility] de Phone Number [facility] [address] [place] [address] * (ABNORMAL) POCT glucose (10/14/2023 5:56 AM TREE SPECIALIST) Glucose, POC 259(H) 70 - 140 mg/dL [facility] Comment: For Glucose values <35 mg/dl when Hematocrit is >60 mg/dl,the test may not accurately detect significant hypoglycemia,and testing in the Laboratory should be considered if clinically indicated. Blood 10/14/2023 5:56 AM TREE SPECIALIST 10/14/2023 5:56 AM TREE SPECIALIST us Frank Cody MD LAB POCT ORDERABLES - DEVICE Fin al Result Performing Organization Address [facility] Co de Phone Number [facility] [address] [place] [address] * eGFR (10/14/2023 5:53 AM TREE SPECIALIST) eGFR 5 mL/min/1. 73 m2 [facility] Comment: Interpretive Data Reference Interval Normal [...] last reviewed 2021. Blood 10/14/2023 5:53 AM TREE SPECIALIST 10/14/2023 6:04 AM TREE SPECIALIST us Vinay Pratt DO LAB BLOOD ORDERABLES F inal Result [facility] [address] Department [place] [address] * (ABNORMAL) aPTT (10/14/2023 5:53 AM TREE SPECIALIST) aPTT 56(H) 28 - 38 sec [facility] Comment: Interpretive Data Heparin therapeutic range: 66.0 - 100.0 seconds. Range based on correlation with therapeutic heparin activity range of 0.3 - 0.7 Units/mL. Current interpretive data was last revised on 2023. Blood 10/14/2023 5:53 AM TREE SPECIALIST 10/14/2023 6:04 AM TREE SPECIALIST Vinay Pratt DO LAB BLOOD ORDERABLES F inal Result Performing Organization Address [facility]/ZIP Co de Phone Number [facility] [address] Department [place] [address] * (ABNORMAL) Basic metabolic panel (10/14/2023 5:53 AM TREE SPECIALIST) [facility] Sodium 131(L) 135 - 145 mmol/L [facility] Potassium, pl 4.3 3.3 - 4.9 mmol/L [facility] Chloride 92(L) 97 - 110 mmol/L [facility] CO2 23 22 - 32 mmol/L [facility] Anion gap 16(H) 2 - 15 mmol/L [facility] BUN 75(H) 6 - 25 mg/dL [facility] Creatinine 10.22(H) 0.80 - 1.30 mg/dL [facility] Glucose 287(H) 70 - 199 mg/dL [facility] Comment: Interpretive Data Fasting glucose >/= [...] 2022. Calcium 9.0 8.5 - 10.3 mg/dL [facility] Blood 10/14/2023 5:53 AM TREE SPECIALIST 10/14/2023 6:04 AM TREE SPECIALIST Vinay Pratt DO LAB BLOOD ORDERABLES F inal Result Performing Organization Address City/[facility]/ZIP Co de Phone Number [facility] [address] [facility] [place] [employer] [place] [address] * (ABNORMAL) POCT glucose (10/14/2023 3:58 AM TREE SPECIALIST) Glucose, POC 382(H) 70 - 140 mg/dL [facility] Comment: For Glucose values <35 mg/dl when Hematocrit is >60 mg/dl,the test may not accurately detect significant hypoglycemia,and testing in the Laboratory should be considered if clinically indicated. Blood 10/14/2023 3:58 AM TREE SPECIALIST 10/14/2023 3:58 AM TREE SPECIALIST us Frank Cody MD LAB POCT ORDERABLES - DEVICE Fin al Result Performing Organization Address [facility] Co de Phone Number [facility] [address] [facility] [place] [employer] [place] [address] * (ABNORMAL) POCT glucose (10/14/2023 3:04 AM TREE SPECIALIST) Glucose, POC 378(H) 70 - 140 mg/dL [facility] Comment: For Glucose values <35 mg/dl when Hematocrit is >60 mg/dl,the test may not accurately detect significant hypoglycemia,and testing in the Laboratory should be considered if clinically indicated. Blood 10/14/2023 3:04 AM TREE SPECIALIST 10/14/2023 3:04 AM TREE SPECIALIST us Frank Cody MD LAB POCT ORDERABLES - DEVICE Fin al Result Performing Organization Address [facility] Co de Phone Number [facility] [address] [facility] [place] [employer] [place] [address] * (ABNORMAL) POCT glucose (10/14/2023 2:05 AM TREE SPECIALIST) Glucose, POC 425(H) 70 - 140 mg/dL [facility] Comment: For Glucose values <35 mg/dl when Hematocrit is >60 mg/dl,the test may not accurately detect significant hypoglycemia,and testing in the Laboratory should be considered if clinically indicated. Blood 10/14/2023 2:05 AM TREE SPECIALIST 10/14/2023 2:05 AM TREE SPECIALIST Frank Cody MD LAB POCT ORDERABLES - DEVICE Fin al Result Performing Organization Address [facility] Co de Phone Number [facility] [address] Department [place] [address] * eGFR (10/14/2023 1:04 AM TREE SPECIALIST) Pathologist [facility] eGFR 5 mL/min/1. 73 m2 [facility] Comment: Interpretive Data Reference Interval Normal [...] last reviewed 2021. Blood 10/14/2023 1:04 AM TREE SPECIALIST 10/14/2023 1:36 AM TREE SPECIALIST Vinay Pratt DO LAB BLOOD ORDERABLES F inal Result Performing Organization Address [facility]/State/ZIP Co de Phone Number [facility] [address] Department [place] [address] * (ABNORMAL) Differential, auto (10/14/2023 1:04 AM TREE SPECIALIST) Neutrophil abs 4.8 1.5 - 6.5 K/cumm [facility] Imm gran abs 0.1 0.0 - 0.1 K/cumm [facility] Lymphocyte abs 0.7(L) 0.8 - 3.3 K/cumm [facility] Monocyte abs 0.7 0.2 - 0.8 K/cumm [facility] Eosinophil abs 0.0 0.0 - 0.5 K/cumm [facility] Basophil abs 0.0 0.0 - 0.1 K/cumm [facility] Neutrophil pct 77.4 % [facility] Comment: Interpretive Data Percent cell count reference ranges are not reported, since discordance with absolute values may lead to misinterpretation of CBC data. Current Interpretive Data was last revised on 2017. Imm gran pct 1.0 % [facility] Comment: Interpretive Data Percent cell count reference ranges are not reported, since discordance with absolute values may lead to misinterpretation of CBC data. Current Interpretive Data was last revised on 2017. Lymphocyte pct 10.4 % [facility] Comment: Interpretive Data Percent cell count reference ranges are not reported, since discordance with absolute values may lead to misinterpretation of CBC data. Current Interpretive Data was last revised on 2017. Monocyte pct 11.2 % [facility] Comment: Interpretive Data Percent cell count reference ranges are not reported, since discordance with absolute values may lead to misinterpretation of CBC data. Current Interpretive Data was last revised on 2017. Eosinophil pct 0.0 % [facility] Comment: Interpretive Data Percent cell count reference ranges are not reported, since discordance with absolute values may lead to misinterpretation of CBC data. Current Interpretive Data was last revised on 2017. Basophil pct 0.0 % [facility] Comment: Interpretive Data Percent cell count reference ranges are not reported, since discordance with absolute values may lead to misinterpretation of CBC data. Current Interpretive Data was last revised on 2017. Blood 10/14/2023 1:04 AM TREE SPECIALIST 10/14/2023 1:36 AM TREE SPECIALIST Vinay Pratt [facility] BLOOD ORDERABLES F inal Result Performing Organization Address [facility] de Phone Number [facility] [address] [facility] [place] [employer] [place] [address] * (ABNORMAL) aPTT (10/14/2023 1:04 AM TREE SPECIALIST) aPTT 68(H) 28 - 38 sec [facility] Comment: Interpretive Data Heparin therapeutic range: 66.0 - 100.0 seconds. Range based on correlation with therapeutic heparin activity range of 0.3 - 0.7 Units/mL. Current interpretive data was last revised on 2023. Blood 10/14/2023 1:04 AM TREE SPECIALIST 10/14/2023 1:36 AM TREE SPECIALIST Narrative [facility] - 10/14/2023 1:49 AM TREE SPECIALIST Baseline prior to heparin initiation Vinay Pratt [facility] BLOOD ORDERABLES F inal Result Performing Organization Address [facility] de Phone Number [facility] [address] [place] [address] * Protime-INR (10/14/2023 1:04 AM TREE SPECIALIST) PT 13.5 10.3 - 13.7 sec [facility] INR 1.18 0.90 - 1.20 [facility] Comment: Interpretive data Oral anticoagulant therapeutic ranges: Venous thromboembolism prophylaxis or treatment: 2.0-3.0 CARDIOLOGY Standard range: 2.0-3.0 High-intensity range: 2.5-3.5 Refer to indication-specific guidelines for appropriate target ranges for prosthetic heart valve replacement. Current interpretive data was last revised on 2019. Blood 10/14/2023 1:04 AM TREE SPECIALIST 10/14/2023 1:36 AM TREE SPECIALIST Narrative [facility] - 10/14/2023 1:49 AM TREE SPECIALIST Baseline prior to heparin initiation Vinay Pratt DO LAB BLOOD ORDERABLES F inal Result Performing Organization Address City/[facility]/ZIP Co de Phone Number [facility] [address] Department [place] [employer] [place] [address] * (ABNORMAL) CBC with auto differential (10/14/2023 1:04 AM TREE SPECIALIST) Pathologist [facility] WBC 6.2 3.8 - 9.9 K/cumm [facility] Hgb 9.4(L) 13.0 - 17.5 g/dL [facility] Hct 29.0(L) 38.9 - 50.3 % [facility] Plt 357 150 - 400 K/cumm [facility] MPV 11.0 9.1 - 12.3 fL [facility] RBC 3.21(L) 4.30 - 5.80 M/cumm [facility] MCV 90.3 81.3 - 96.4 fL [facility] MCH 29.3 27.1 - 33.3 pg [facility] MCHC 32.4 32.3 - 35.7 g/dL [facility] RDW CV 13.6 11.1 - 14.9 % [facility] RDW SD 44.1 35.7 - 48.1 fL [facility] NRBC abs 0.00 0.00 - 0.01 K/cumm [facility] Blood 10/14/2023 1:04 AM TREE SPECIALIST 10/14/2023 1:36 AM TREE SPECIALIST Vinay Pratt DO LAB BLOOD ORDERABLES F inal Result [facility] [address] Department [place] [employer] [place] [address] * (ABNORMAL) Comprehensive metabolic panel (10/14/2023 1:04 AM TREE SPECIALIST) Pathologist [facility] Sodium 130(L) 135 - 145 mmol/L [facility] Potassium, pl 4.3 3.3 - 4.9 mmol/L [facility] Chloride 90(L) 97 - 110 mmol/L [facility] CO2 21(L) 22 - 32 mmol/L [facility] Anion gap 19(H) 2 - 15 mmol/L [facility] BUN 66(H) 6 - 25 mg/dL [facility] Creatinine 10.57(H) 0.80 - 1.30 mg/dL [facility] Glucose 453(C) 70 - 199 mg/dL [facility] Comment: Critical result called to and read back by Brit Zeng RN on 10/14/2023 0211 to [id number] Interpretive Data Fasting glucose >/= 126 mg/dl [...] 2022. Calcium 9.2 8.5 - 10.3 mg/dL [facility] Bilirubin, total 0.3 0.1 - 1.2 mg/dL [facility] Protein, pl 6.4(L) 6.5 - 8.5 g/dL [facility] Albumin 3.4(L) 3.5 - 5.0 g/dL [facility] Alk phos 98 40 - 130 Units/L [facility] ALT 21 7 - 55 Units/L [facility] AST 28 10 - 50 Units/L [facility] Blood 10/14/2023 1:04 AM TREE SPECIALIST 10/14/2023 1:36 AM TREE SPECIALIST us Vinay Pratt DO LAB BLOOD ORDERABLES F inal Result [facility] [address] Department [place] [address] * (ABNORMAL) POCT glucose (10/13/2023 11:25 PM TREE SPECIALIST) Glucose, POC 534(C) 70 - 140 mg/dL [facility] Comment: For Glucose values <35 mg/dl when Hematocrit is >60 mg/dl,the test may not accurately detect significant hypoglycemia,and testing in the Laboratory should be considered if clinically indicated. 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) ([facility]) Aortic stenosis, severe S/P CABG x 3 Postsurgical aortocoronary bypass status NSTEMI (non-ST elevated myocardial infarction) ([facility]) ([facility]) Acute myocardial infarction, subendocardial infarction, episode of care unspecified S/P AVR documented in this encounter Admitting Diagnoses Diagnosis CAD in eek artery documented in this encounter Administered Medications Inactive Administered Medications - up to 3 most recent administrations Medication Order MAR Action Action Date Dose Rate Site acetaminophen (TYLENOL) 32 mg/mL oral liquid 1,000 mg 1,000 mg, feeding tube, Every 6 hours scheduled, First dose on Mon10/17/23 at 1400, If taking meds per tube., Indications: PainIndications:Pain Given 10/17/2023 11:12 PM TREE SPECIALIST 1,000 mg Given 10/17/2023 5:00 PM TREE SPECIALIST 1,000 mg acetaminophen (TYLENOL) tablet 1,000 mg 1,000 mg, oral, Every 6 hours scheduled, First dose on Mon10/17/23 at 1400, If able to swallow medications., Indications: PainIndications:Pain Given 10/20/2023 6:32 AM TREE SPECIALIST 1,000 mg Given 10/19/2023 11:00 PM TREE SPECIALIST 1,000 mg Given 10/19/2023 5:21 PM TREE SPECIALIST 1,000 mg acetaminophen (TYLENOL) tablet 1,000 mg 1,000 mg, oral, Every 6 hours scheduled, First dose (after last modification) on Mon10/20/23 at 1815, If able to swallow medications., Indications: PainIndications:Pain Given 10/27/2023 10:58 AM TREE SPECIALIST 1,000 mg Given 10/27/2023 6:04 AM TREE SPECIALIST 1,000 mg Given 10/26/2023 10:57 PM TREE SPECIALIST 1,000 mg acetaminophen (TYLENOL) tablet 500 mg 500 mg, oral, Every 6 hours PRN, 1st line for pain, Starting on Mon10/27/23 at 1200, If able to swallow medications., Indications: PainIndications:Pain Given 10/31/2023 5:43 AM CDT 500 mg Given 10/30/2023 9:36 PM CDT 500 mg al & mag hydroxide rifchcazsio-bfiwbgxtglmdpip-iewhwuniy-nystatin (MAGIC MOUTHWASH) oral suspension 1-1-1-1 20 mL [...] Mon10/14/23 at 1254 Given 10/16/2023 9:42 PM TREE SPECIALIST 1 mg Given 10/15/2023 6:18 PM TREE SPECIALIST 1 mg Given 10/14/2023 8:25 PM TREE SPECIALIST 1 mg aminocaproic acid (AMICAR) 9,500 mg in sodium chloride 0.9% 100 mL IVPB 9,500 mg (rounded from 9,465 mg = 75 mg/kg ? 126.2 kg), intravenous, at 138 mL/hr, Administer over 60 Minutes, Once, On Mon10/17/23 at 1900, For 1 dose, Indications: Postsurgical HemorrhageIndications:Postsurgica l Hemorrhage New Bag 10/17/2023 6:38 PM TREE SPECIALIST 9,500 mg 138 mL/hr amiodarone (NEXTERONE) 150 mg/100 mL (1.5 mg/mL) in dextrose (premix) 150 mg 150 mg, intravenous, at 600 mL/hr, Administer over 10 Minutes, Once, On Mon10/23/23 at 0845, For 1 dose, Use filter 0.22 micron or less New Bag 10/23/2023 9:50 AM TREE SPECIALIST 150 mg 600 mL/hr amiodarone (PACERONE) tablet 200 mg 200 mg, oral, 2 times daily, First dose on Mon10/24/23 at 0900 Given 10/27/2023 8:28 AM TREE SPECIALIST 200 mg Given 10/26/2023 10:57 PM TREE SPECIALIST 200 mg Given 10/26/2023 8:37 AM TREE SPECIALIST 200 mg amiodarone (PACERONE) tablet 200 mg [...] less, Routine New Bag 10/23/2023 2:08 PM TREE SPECIALIST 1 mg/min 33.3 mL/hr New Bag 10/23/2023 9:55 AM TREE SPECIALIST 1 mg/min 33.3 mL/hr amiodarone in dextrose (NEXTERONE) 360 mg/200 mL (1.8 mg/mL) infusion (premix) 0.5 mg/min (16.6667 mL/hr, rounded to 16.67 mL/hr), 1.8 mg/mL, intravenous, Continuous, Starting on Mon10/23/23 at 1555, Until Mon10/24/23 at 0726, Use filter 0.22 micron or less, Routine New Bag 10/23/2023 11:47 PM TREE SPECIALIST 0.5 mg/min 16.67 mL/hr Rate/Dose Change 10/23/2023 4:15 PM TREE SPECIALIST 0.5 mg/min 16.67 m L/hr aspirin chewable [...] otherwise manipulate tablet/capsule. Given 10/16/2023 8:19 AM TREE SPECIALIST 81 mg Given 10/15/2023 8:41 AM TREE SPECIALIST 81 mg Given 10/14/2023 8:52 AM TREE SPECIALIST 81 mg atorvastatin (LIPITOR) tablet 80 mg [...] Bowel EvacuationIndications:Bowel Evacuation Given 10/16/2023 8:08 PM TREE SPECIALIST 10 mg bisacodyL (DULCOLAX) suppository 10 mg 10 mg, rectal, Once, On Gregoria 10/19/23 at 1545, For 1 dose, Indications: constipationIndications:constipation Given 10/19/2023 5:21 PM TREE SPECIALIST 10 mg calcitRIOL (ROCALTROL) capsule 0.25 mcg [...] ST 667 mg Given 10/19/2023 12:07 PM TREE SPECIALIST 667 mg Given 10/19/2023 8:12 AM TREE SPECIALIST 667 mg calcium acetate(phosphat bind) (PHOSLO) capsule 667 mg 667 mg, oral, Nightly, First dose on Mon10/18/23 at 2100, Take with food Given 10/19/2023 9:41 PM TREE SPECIALIST 667 mg Given 10/18/2023 9:47 PM TREE SPECIALIST 667 mg calcium chloride 1 g/110 mL in sodium chloride 0.9% (premix) solution 1 g 1 g, intravenous, Administer over 60 Minutes, Once, On Mon10/17/23 at 1430, For 1 dose, Indications: hypocalcemiaIndications:hypocalce michele New Bag 10/17/2023 2:19 PM TREE SPECIALIST 1 g calcium chloride 1 g/110 mL [...] hypocalcemiaIndications:hypocalce michele New Bag 10/18/2023 12:32 AM TREE SPECIALIST 1,000 mg Carrier Fluids for Secondary Infusion [...] Prophylaxis, SurgicalIndications:Prophylaxis, Surgical Given 10/19/2023 8:17 AM TREE SPECIALIST 1,000 mg 200 mL/hr Given 10/18/2023 9:07 AM TREE SPECIALIST 1,000 mg 200 mL/hr ceFAZolin (ANCEF) 1 [...] until manually unheld Given 10/16/2023 8:20 AM TREE SPECIALIST 0.6 mg desmopressin (DDAVP) 38 mcg in sodium chloride 0.9% 50 mL IVPB 38 mcg (rounded from 37.86 mcg = 0.3 mcg/kg ? 126.2 kg), intravenous, at 119 mL/hr, Administer over 30 Minutes, Once, On Mon10/17/23 at 1515, For 1 dose New Bag 10/17/2023 3:10 PM TREE SPECIALIST 38 mcg 119 mL/hr dextrose (D10W) 10% bolus 125 mL 125 mL, intravenous, at 500 mL/hr, Administer over 15 Minutes, Every 30 min PRN, low blood glucose, Starting on Mon10/17/23 at 1329, BG less than 60 mg/dL OR BG 60-74 mg/dL and previous BG was greater than 90 mg/dL (Glucose is dropping FAST), Indications: hypoglycemic disorderIndications:hypoglyc emic disorder New Bag 10/19/2023 10:58 AM TREE SPECIALIST 1,000 mL 500 mL/hr dextrose (D10W) 10% [...] Call MD for each episode of hypoglycemia. CANE FEEDER STATES GLUTOSE-15 CONTAINS GLUCOSE 40% W/W (50% W/V), Indications: hypoglycemic disorderIndications:hypoglyc emic disorder dextrose 5% and Lactated Ringer's infusion 10 mL/hr, intravenous, Continuous, Starting on Tu10/17/23 at 1645 Rate/Dose Change 10/17/2023 6:00 PM TREE SPECIALIST 10 mL/hr 10 mL/hr New Bag 10/17/2023 4:03 PM TREE SPECIALIST 20 mL/hr 20 mL/hr dextrose 5% and Lactated Ringer's infusion 10 mL/hr, intravenous, Continuous, Starting on Gregoria 10/19/23 at 1145 Rate/Dose Change 10/19/2023 2:53 PM TREE SPECIALIST 10 mL/hr 10 mL/hr New Bag 10/19/2023 11:17 AM TREE SPECIALIST 20 mL/hr 20 mL/hr Dianeal low calcium-dextrose 2.5 % 6,000 mL dialysis solution intraperitoneal, Continuous, Starting on 10/14/23 at 1615, For 24 hours, CCPD bag number: 1, Indications: Peritoneal DialysisIndications:Peritoneal Dialysis New Bag 10/15/2023 10:58 PM TREE SPECIALIST New Bag 10/14/2023 7:22 PM TREE SPECIALIST Dianeal low calcium-dextrose 2.5 % 6,000 mL dialysis solution intraperitoneal, Continuous, Starting on 10/14/23 at 1615, For 24 hours, CCPD bag number: 2, Indications: Peritoneal DialysisIndications:Peritoneal Dialysis New Bag 10/15/2023 10:58 PM TREE SPECIALIST New Bag 10/14/2023 7:21 PM TREE SPECIALIST Dianeal low calcium-dextrose 2.5 % 6,000 mL dialysis solution intraperitoneal, Continuous, Starting on 10/16/23 at 1615, For 24 hours, CCPD bag number: 1, Indications: Peritoneal DialysisIndications:Peritoneal Dialysis New Bag 10/16/2023 6:53 PM TREE SPECIALIST Dianeal low calcium-dextrose 2.5 % 6,000 mL dialysis solution intraperitoneal, Continuous, Starting on Mon10/16/23 at 1615, For 24 hours, CCPD bag number: 2, Indications: Peritoneal DialysisIndications:Peritoneal Dialysis New Bag 10/16/2023 6:53 PM TREE SPECIALIST Dianeal low calcium-dextrose 2.5 % 6,000 mL dialysis solution intraperitoneal, Continuous, Starting on Mon10/17/23 at 2145, For 24 hours, CCPD bag number: 1, Indications: Peritoneal DialysisIndications:Peritoneal Dialysis New Bag 10/18/2023 10:57 PM TREE SPECIALIST New Bag 10/17/2023 10:32 PM TREE SPECIALIST Dianeal low calcium-dextrose 2.5 % 6,000 mL dialysis solution intraperitoneal, Continuous, Starting on Mon10/17/23 at 2145, For 24 hours, CCPD bag number: 2, Indications: Peritoneal DialysisIndications:Peritoneal Dialysis New Bag 10/20/2023 12:32 AM TREE SPECIALIST New Bag 10/18/2023 10:56 PM TREE SPECIALIST New Bag 10/17/2023 10:32 PM TREE SPECIALIST Dianeal low calcium-dextrose 2.5 % 6,000 mL dialysis solution intraperitoneal, Continuous, Starting on Mon10/18/23 at 2130, For 24 hours, CCPD bag number: 2, Indications: Peritoneal DialysisIndications:Peritoneal Dialysis New Bag 10/20/2023 12:32 AM TREE SPECIALIST Dianeal low calcium-dextrose 2.5 % 6,000 mL dialysis solution intraperitoneal, Continuous, Starting on Mon10/20/23 at 1630, For 24 days, CCPD bag number: 1, Indications: Peritoneal DialysisIndications:Peritoneal Dialysis New Bag 10/20/2023 7:05 PM TREE SPECIALIST Dianeal low calcium-dextrose 2.5 % 6,000 mL dialysis solution intraperitoneal, Continuous, Starting on Mon10/20/23 at 1630, For 24 days, CCPD bag number: 2, Indications: Peritoneal DialysisIndications:Peritoneal Dialysis New Bag 10/20/2023 7:04 PM TREE SPECIALIST Dianeal low calcium-dextrose 2.5 % 6,000 mL with heparin 3,000 Units dialysis solution intraperitoneal, Continuous, Starting on Mon24 at 1800, For 563 hours, CCPD bag number: 1, Indications: Peritoneal DialysisIndications:Peritoneal Dialysis New Bag 10/28/2023 6:17 PM TREE SPECIALIST New Bag 10/27/2023 7:52 PM TREE SPECIALIST New Bag 10/26/2023 8:33 PM TREE SPECIALIST Dianeal low calcium-dextrose 2.5 % 6,000 mL [...] titrate, Routine Rate/Dose Change 10/18/2023 10:30 PM TREE SPECIALIST 2 mcg/kg/min 3.79 mL/hr Rate/Dose Verify 10/18/2023 10:00 PM TREE SPECIALIST 3 mcg/kg/min 5.68 mL/hr Rate/Dose Verify 10/18/2023 8:00 PM TREE SPECIALIST 3 mcg/kg/min 5.68 mL/hr DOBUTamine in dextrose [...] 65, Routine Rate/Dose Verify 10/19/2023 4:00 AM TREE SPECIALIST 1 mcg/kg/min 1.89 mL/hr Rate/Dose Change 10/19/2023 3:00 AM TREE SPECIALIST 1 mcg/kg/min 1.89 mL/hr Rate/Dose Verify 10/19/2023 2:00 AM TREE SPECIALIST 2 mcg/kg/min 3.79 mL/hr docusate (COLACE) 10 mg/mL oral liquid 100 mg 100 mg, feeding tube, 2 times daily, First dose on Mon10/17/23 at 1400, If taking meds per tube. Hold for diarrhea., Indications: constipationIndications:constipation Given 10/17/2023 8:14 PM TREE SPECIALIST 100 mg docusate sodium (COLACE) capsule 100 [...] DialysisIndications:ESRD on Dialysis Given 10/27/2023 10:12 PM TREE SPECIALIST 10,000 Units Left Upper Arm ergocalciferol (VITAMIN D) capsule 50,000 Units 50,000 Units, oral, Weekly, First dose on Mon10/14/23 at 1045, Do not crush, break, or open. Therapeutic Interchange for Vitamin D3 50,000 units weekly as approved by [facility] P&T Committee. Given 10/14/2023 12:28 PM TREE SPECIALIST 50,000 Units Extraneal 7.5% AMBU-FLEX 2,500 mL dialysis solution intraperitoneal, Continuous, Starting on 10/14/23 at 1615, For 24 hours, This is to be used as the last fill, CCPD bag number: 3, Indications: Peritoneal DialysisIndications:Peritone al Dialysis New Bag 10/15/2023 10:59 PM TREE SPECIALIST New Bag 10/14/2023 7:32 PM TREE SPECIALIST Extraneal 7.5% AMBU-FLEX 2,500 mL dialysis solution intraperitoneal, Continuous, Starting on Mon10/20/23 at 1630, For 24 days, CCPD bag number: 3, Indications: Peritoneal DialysisIndications:Peritoneal Dialysis New Bag 10/20/2023 7:05 PM TREE SPECIALIST Extraneal 7.5% AMBU-FLEX 2,500 mL with heparin [...] Mon10/17/23 at 1400 Given 10/17/2023 4:59 PM TREE SPECIALIST 20 mg famotidine (PEPCID) tablet 20 mg 20 mg, oral, Nightly, First dose on 10/14/23 at 2100 Given 10/16/2023 9:42 PM TREE SPECIALIST 20 mg Given 10/15/2023 8:16 PM TREE SPECIALIST 20 mg Given 10/14/2023 9:26 PM TREE SPECIALIST 20 mg gemfibroziL (LOPID) tablet 600 mg 600 mg, oral, 2 times daily before meals (bkfst, lunch), First dose on 10/14/23 at 0730 Given 10/16/2023 12:24 PM TREE SPECIALIST 600 mg Given 10/16/2023 8:19 AM TREE SPECIALIST 600 mg Given 10/15/2023 12:22 PM TREE SPECIALIST 600 mg gentamicin (GARAMYCIN) 0.1 % cream topical, Daily, First dose on 10/14/23 at 1615, Apply to peritoneal dialysis catheter exit site daily during dressing change. DO NOT SUBSTITUTE WITH OINTMENT., Apply to affected area: dialysis access site, Indications: Infection ProphylaxisIndications:Infection Prophylaxis Given 10/16/2023 8:20 AM TREE SPECIALIST Given 10/14/2023 7:22 PM TREE SPECIALIST gentamicin (GARAMYCIN) 0.1 % cream topical, Daily, First dose on 10/16/23 at 1615, Apply to peritoneal dialysis catheter exit site daily during dressing change. DO NOT SUBSTITUTE WITH OINTMENT., Apply to affected area: dialysis access site, Indications: Infection ProphylaxisIndications:Infection Prophylaxis Given 10/16/2023 6:53 PM TREE SPECIALIST gentamicin (GARAMYCIN) 0.1 % cream topical, Daily, [...] Mon10/24/23 at 0739 Given 10/24/2023 7:45 AM TREE SPECIALIST 200 mg haloperidol (HALDOL) injection 1 mg 1 mg, intravenous, Once, On Mon10/18/23 at 1615, For 1 dose, If administered IV push, administer over 5 min for adults Given 10/18/2023 3:48 PM TREE SPECIALIST 1 mg haloperidol (HALDOL) injection 1 mg 1 mg, intravenous, Once, On Gregoria 10/19/23 at 1315, For 1 dose, If administered IV push, administer over 5 min for adults Given 10/19/2023 12:36 PM TREE SPECIALIST 1 mg heparin 5,000 unit/mL injection 2,000 [...] SyndromeIndications:Acute Coronary Syndrome Given 10/14/2023 2:59 PM TREE SPECIALIST 3,000 Units heparin 5,000 unit/mL injection 3,000 [...] Coronary Syndrome New Bag 10/17/2023 4:27 AM TREE SPECIALIST 12.1 Units/kg/hr 14.9 mL/hr New Bag 10/16/2023 11:02 AM TREE SPECIALIST 12.1 Units/kg/hr 14.9 m L/hr New Bag 10/15/2023 6:16 PM TREE SPECIALIST 12.1 Units/kg/hr 14.9 mL /hr heparin in [...] is discontinued. , Indications: Mechanical Valve Thromboembolism ProphylaxisIndications:Ceramics Teacher al Valve Thromboembolism Prophylaxis New Bag 10/20/2023 6:32 AM TREE SPECIALIST 9.3 Units/kg/hr 11.74 mL/hr Rate/Dose Change 10/20/2023 3:30 AM TREE SPECIALIST 9.3 Units/kg/hr 11 .74 mL/hr Rate/Dose Change 10/19/2023 3:21 PM TREE SPECIALIST 11.3 Units/kg/hr 1 4.26 mL/hr heparin in [...] fibrillationIndications:atrial fibrillation New Bag 10/27/2023 10:58 AM TREE SPECIALIST 12.7 Units/kg/hr 16.47 mL/hr New Bag 10/26/2023 4:50 PM TREE SPECIALIST 12.7 Units/kg/hr 16.47 m L/hr Rate/Dose Verify 10/26/2023 3:28 PM TREE SPECIALIST 12.7 Units/kg/hr 1 6.47 mL/hr heparin in [...] dose, Indications: PainIndications:Pain Given 10/25/2023 11:13 AM TREE SPECIALIST 1 tablet HYDROcodone-acetaminophen (NORCO) 5-325 mg per [...] pain., Indications: PainIndications:Pain Given 10/18/2023 8:42 AM TREE SPECIALIST 0.5 mg HYDROmorphone (PF) (DILAUDID) injection 0.2 mg 0.2 mg, intravenous, Administer over 2 Minutes, Every 2 hours PRN, breakthrough pain, Starting on Mon10/17/23 at 1324, May administer 1 hour after second dose of 1st line analgesic agent for uncontrolled or increasing pain., Indications: PainIndications:Pain Given 10/18/2023 7:13 AM TREE SPECIALIST 0.2 mg insulin glargine (LANTUS, SEMGLEE) 100 unit/mL injection 15 Units 15 Units, subcutaneous, Every morning, First dose (after last modification) on Mon10/14/23 at 0915, Do not mix with other insulins Given 10/14/2023 10:04 AM TREE SPECIALIST 15 Units Left Upper Arm insulin glargine (LANTUS, SEMGLEE) 100 unit/mL injection 20 Units 20 Units, subcutaneous, Every morning, First dose (after last modification) on 10/16/23 at 0900, Do not mix with other insulins Given 10/16/2023 8:19 AM TREE SPECIALIST 20 Units Left Lower Abdomen insulin glargine (LANTUS, SEMGLEE) 100 unit/mL injection 30 Units 30 Units, subcutaneous, Every morning, First dose (after last modification) on 10/15/23 at 0900, Do not mix with other insulins Given 10/15/2023 8:40 AM TREE SPECIALIST 30 Units Right Upper Arm insulin lispro [...] Diabetes MellitusIndications:Diabetes Mellitus Given 10/14/2023 4:01 AM TREE SPECIALIST 10 Units Left Upper Arm Given 10/14/2023 2:24 AM TREE SPECIALIST 10 Units Le ft Upper Arm insulin [...] Diabetes MellitusIndications:Diabetes Mellitus Given 10/16/2023 8:20 AM TREE SPECIALIST 6 Units Left Lower Abdomen Given 10/15/2023 12:22 PM TREE SPECIALIST 2 Units R ight Upper Abdomen Given 10/15/2023 8:40 AM TREE SPECIALIST 4 Units Ri ght Upper Arm insulin [...] Diabetes MellitusIndications:Diabetes Mellitus Given 10/21/2023 1:18 PM TREE SPECIALIST 6 Units Left Upper Arm Given 10/21/2023 8:38 AM TREE SPECIALIST 6 Units Ri ght Upper Arm insulin [...] manually unheldIndications:Diabetes Mellitus Given 10/23/2023 8:03 AM TREE SPECIALIST 4 Units Right Upper Arm Given 10/22/2023 9:17 PM TREE SPECIALIST 2 Units Le ft Upper Arm Given 10/22/2023 1:39 PM TREE SPECIALIST 2 Units Ri ght Upper Arm insulin lispro (HumaLOG, ADMELOG) 100 unit/mL injection 1 Units 1 Units, subcutaneous, Once, On Mon10/17/23 at 0245, For 1 dose Given 10/17/2023 2:33 AM TREE SPECIALIST 1 Units Left Lower Abdomen insulin lispro (HumaLOG, ADMELOG) 100 unit/mL injection 10 Units 10 Units, subcutaneous, 3 times daily with meals, First dose (after last modification) on Mon10/16/23 at 1800 Given 10/16/2023 5:33 PM TREE SPECIALIST 10 Units Left Lower Abdomen insulin lispro (HumaLOG, ADMELOG) 100 unit/mL injection 12 Units 12 Units, subcutaneous, 3 times daily with meals, First dose (after last modification) on Mon10/15/23 at 0800 Given 10/16/2023 12:24 PM TREE SPECIALIST 12 Units Left Lower Abdomen Given 10/16/2023 8:19 AM TREE SPECIALIST 12 Units Le ft Lower Abdomen Given 10/15/2023 6:16 PM TREE SPECIALIST 12 Units Le ft Upper Arm insulin lispro (HumaLOG, ADMELOG) 100 unit/mL injection 3 Units 3 Units, subcutaneous, Once, On Tu10/17/23 at 0700, For 1 dose Given 10/17/2023 6:24 AM TREE SPECIALIST 3 Units Left Lower Abdomen insulin lispro [...] Diabetes MellitusIndications:Diabetes Mellitus Given 10/20/2023 1:23 PM TREE SPECIALIST 3 Units Right Upper Arm Given 10/20/2023 9:40 AM TREE SPECIALIST 3 Units Le ft Upper Arm insulin lispro (HumaLOG, ADMELOG) 100 unit/mL injection 4 Units 4 Units, subcutaneous, Once, On 10/14/23 at 2200, For 1 dose Given 10/14/2023 9:27 PM TREE SPECIALIST 4 Units Left Lower Abdomen insulin lispro [...] manually unheldIndications:Diabetes Mellitus Given 10/23/2023 8:03 AM TREE SPECIALIST 4 Units Right Upper Arm insulin lispro (HumaLOG, ADMELOG) 100 unit/mL injection 5 Units 5 Units, subcutaneous, 3 times daily with meals, First dose (after last modification) on 10/14/23 at 1030 Given 10/14/2023 5:33 PM TREE SPECIALIST 5 Units Left Upper Arm Given 10/14/2023 10:04 AM TREE SPECIALIST 5 Units L eft Upper Arm insulin [...] For 1 dose Given 10/15/2023 1:51 AM TREE SPECIALIST 6 Units Left Lower Abdomen insulin lispro (HumaLOG, ADMELOG) 100 unit/mL injection 6 Units 6 Units, subcutaneous, Once, On Mon10/15/23 at 0630, For 1 dose Given 10/15/2023 6:06 AM TREE SPECIALIST 6 Units Right Upper Arm insulin lispro (HumaLOG, ADMELOG) 100 unit/mL injection 6 Units 6 Units, subcutaneous, Once, On Mon10/16/23 at 0545, For 1 dose Given 10/16/2023 5:29 AM TREE SPECIALIST 6 Units Left Lower Abdomen insulin lispro [...] Diabetes MellitusIndications:Diabetes Mellitus Given 10/22/2023 6:43 PM TREE SPECIALIST 4 Units Left Upper Arm Given 10/22/2023 1:39 PM TREE SPECIALIST 6 Units Ri ght Upper Arm Given 10/22/2023 8:23 AM TREE SPECIALIST 6 Units Ri ght Upper Arm insulin NPH (HumuLIN N, NovoLIN N) 100 unit/mL injection 15 Units 15 Units, subcutaneous, Daily, First dose on Mon10/20/23 at 0900, Reason for prescribing NPH: basal, Indications: Diabetes MellitusIndications:Diabetes Mellitus Given 10/21/2023 8:38 AM TREE SPECIALIST 15 Units Left Upper Arm Given 10/20/2023 9:40 AM TREE SPECIALIST 15 Units Le ft Upper Abdomen insulin NPH (HumuLIN N, NovoLIN N) 100 unit/mL injection 15 Units 15 Units, subcutaneous, Daily, First dose (after last modification) on Mon10/23/23 at 0900, Reason for prescribing NPH: basal, Indications: Diabetes Mellitus, On hold since Mon10/23/2023 at 1051 until manually unheldIndications:Diabetes Mellitus Given 10/23/2023 8:03 AM TREE SPECIALIST 15 Units Right Upper Arm insulin NPH (HumuLIN N, NovoLIN N) 100 unit/mL injection 20 Units 20 Units, subcutaneous, Daily, First dose (after last modification) on Mon10/22/23 at 0900, Reason for prescribing NPH: basal, Indications: Diabetes MellitusIndications:Diabetes Mellitus Given 10/22/2023 8:23 AM TREE SPECIALIST 20 Units Left Upper Arm insulin NPH (HumuLIN N, NovoLIN N) 100 unit/mL injection 30 Units 30 Units, subcutaneous, Nightly, First dose on Mon10/19/23 at 2200, At 10 PM with PD at [place]. Hold if no PD planned., Reason for prescribing NPH: peritoneal dialysis, Indications: Diabetes MellitusIndications:Diabetes Mellitus Given 10/20/2023 9:24 PM TREE SPECIALIST 30 Units Left Outer Thigh Given 10/19/2023 11:00 PM TREE SPECIALIST 30 Units L eft Lower Abdomen insulin [...] Diabetes MellitusIndications:Diabetes Mellitus Given 10/22/2023 11:57 PM TREE SPECIALIST 40 Units Left Upper Arm Given 10/21/2023 9:35 PM TREE SPECIALIST 40 Units Le ft Upper Arm INSULIN PUMP REFILL lispro (HumaLOG, ADMELOG) solution 300 Units 300 Units, other, Once, On 10/28/23 at 2115, For 1 dose, For refill into insulin pump reservoir ONLY. Not for direct administration to the patient. Pump Refill 10/28/2023 11:18 PM TREE SPECIALIST 300 Units insulin regular bolus from bag 2-14 Units 2-14 Units, intravenous, Every 1 hour PRN, high blood sugar, Starting on Mon10/17/23 at 1329, Bolus as directed in insulin infusion orders., Indications: HyperglycemiaIndications:Hyperglyc emia Bolus from Bag 10/19/2023 5:05 AM TREE SPECIALIST 2 Units Bolus from Bag 10/18/2023 6:08 AM TREE SPECIALIST 2 Units insulin regular in 0.9% sodium [...] glucose is less than 75 mg/dL, call MD/SORTING COWS WORKER 60 - 74 mg/dL: If previous BG [...] 300 mg/dL for 4 consecutive readings, call MD/SORTING COWS WORKER for additional IV bolus orders. When new IV tubing is used, completely prime the tubing. Once primed, waste an additional 20 ml of insulin infusion using the IV pump prior to connecting to patient., RoutineIndications:Hyperglyc emia Rate/Dose Change 10/20/2023 2:00 AM TREE SPECIALIST 2 Units/hr 2 mL/hr Rate/Dose Change 10/20/2023 12:00 AM TREE SPECIALIST 1 Units/hr 1 mL/h r Rate/Dose Change 10/19/2023 10:00 PM TREE SPECIALIST 1.5 Units/hr 1.5 mL/hr INSULIN SUBCUTANEOUS PUMP [...] Self Administered Via Pump 10/24/2023 5:31 PM TREE SPECIALIST 8.15 Units Left Upper Arm Self Administered Via Pump 10/24/2023 12:43 PM TREE SPECIALIST 0 Units Left Upper Arm Self Administered Via Pump 10/24/2023 8:12 AM TREE SPECIALIST 13.4 Uni ts Left Upper Arm INSULIN [...] otherwise manipulate tablet/capsule. Given 10/16/2023 8:18 AM TREE SPECIALIST 60 m g Given 10/15/2023 8:41 AM TREE SPECIALIST 60 mg Given 10/14/2023 8:45 AM TREE SPECIALIST 60 mg Lactated Ringer's (LR) bolus 500 mL 500 mL, intravenous, Once, On Gregoria 10/19/23 at 1400, For 1 dose New Bag 10/19/2023 2:55 PM TREE SPECIALIST 500 mL 999 mL/hr levothyroxine (SYNTHROID) tablet [...] Indications: hypomagnesemiaIndications:hypomagnesemia New Bag 10/17/2023 8:15 PM TREE SPECIALIST 2 g metoprolol tartrate (LOPRESSOR) immediate release split tablet 6.25 mg 6.25 mg, oral, Once, On Mon10/20/23 at 1100, For 1 dose Given 10/20/2023 10:29 AM TREE SPECIALIST 6.25 mg metoprolol tartrate (LOPRESSOR) immediate release split tablet 6.25 mg 6.25 mg, oral, 2 times daily, First dose (after last reorder) on Mon10/20/23 at 2100 Given 10/22/2023 8:23 AM TREE SPECIALIST 6.25 mg Given 10/21/2023 9:21 PM TREE SPECIALIST 6.25 mg Given 10/21/2023 4:41 AM TREE SPECIALIST 6.25 mg metoprolol tartrate (LOPRESSOR) immediate release [...] less than 60 Given 10/16/2023 12:23 PM TREE SPECIALIST 25 mg metoprolol tartrate (LOPRESSOR) immediate release tablet 50 mg 50 mg, oral, Every 12 hours, First dose on 10/14/23 at 0130 Given 10/14/2023 2:59 PM TREE SPECIALIST 50 mg Given 10/14/2023 2:17 AM TREE SPECIALIST 50 mg NIFEdipine (PROCARDIA XL/ADALAT CC) extended release tablet 90 mg 90 mg, oral, Daily, First dose on 10/14/23 at 0900, Do not crush, chew, cut, dissolve, open or otherwise manipulate tablet/capsule. Given 10/16/2023 8:19 AM TREE SPECIALIST 90 mg Given 10/15/2023 12:21 PM TREE SPECIALIST 90 mg Given 10/14/2023 8:44 AM TREE SPECIALIST 90 mg norepinephrine in dextrose 5% (LEVOPHED) [...] RoutineIndications:hypo tension Rate/Dose Verify 10/18/2023 10:00 AM TREE SPECIALIST 0.01 mcg/kg/min 2.37 mL/hr Rate/Dose Change 10/18/2023 8:01 AM TREE SPECIALIST 0.01 mcg/kg/min 2. 37 mL/hr Rate/Dose Change 10/18/2023 6:00 AM TREE SPECIALIST 0.02 mcg/kg/min 4. 73 mL/hr ondansetron (ZOFRAN) injection 4 mg 4 mg, intravenous, Administer over 2 Minutes, Every 6 hours PRN, nausea, vomiting, Starting on Mon10/17/23 at 1324, Administer no sooner than 6 hours after last dose. , Indications: Nausea and VomitingIndications:Nausea and Vomiting Given 10/25/2023 9:13 AM TREE SPECIALIST 4 mg Given 10/19/2023 5:21 PM TREE SPECIALIST 4 mg Given 10/19/2023 10:48 AM TREE SPECIALIST 4 mg oxyCODONE (ROXICODONE) tablet 2.5 mg 2.5 mg, oral, Once, On Mon10/20/23 at 0115, For 1 dose, Indications: PainIndications:Pain Given 10/20/2023 12:37 AM TREE SPECIALIST 2.5 mg oxyCODONE (ROXICODONE) tablet 5 mg 5 mg, oral, Every 3 hours PRN, 1st line for pain, Starting on Mon10/17/23 at 1324, May repeat in 1 hour if pain is uncontrolled or increasing. Max 2 doses within 1 dosing interval. Given 10/18/2023 3:58 PM TREE SPECIALIST 5 mg Given 10/18/2023 10:52 AM T[facility] SPECIALIST 5 mg Given 10/18/2023 7:13 AM TREE SPECIALIST [address] (PROTONIX) extended release tablet 40 mg 40 mg, oral, Daily, First dose on Mon10/14/23 at 0900, Do not crush, chew, cut, dissolve, open or otherwise manipulate tablet/capsule., Indications: Treatment of Non-Bleeding Gastric DisorderIndications:Treatment of Non-Bleeding Gastric Disorder Given 10/16/2023 8:19 AM TREE SPECIALIST 40 mg Given 10/15/2023 8:41 AM TREE SPECIALIST 40 mg Given 10/14/2023 8:44 AM T[facility] SPECIALIST [address] (PROTONIX) extended release [...] 1726, Indications: constipationIndications:constipation Given 10/15/2023 8:49 AM TREE SPECIALIST 17 g Given 10/14/2023 5:33 PM TREE SPECIALIST 17 g polyethylene glycol (MIRALAX) packet 17 g 17 g, oral, Daily, First dose (after last modification) on Mon10/20/23 at 1045, Hold for diarrhea, Indications: constipationIndications:constipation Given 10/30/2023 8:15 AM CDT 17 g Given 10/29/2023 8:19 AM CDT 17 g Given 10/22/2023 8:13 AM T[facility] SPECIALIST 17 g potassium chloride ER (KLOR-CON) extended [...] only, Routine Rate/Dose Verify 10/18/2023 6:00 AM TREE SPECIALIST 25 mcg/kg/min 18.93 mL/hr Rate/Dose Verify 10/18/2023 5:00 AM TREE SPECIALIST 25 mcg/kg/min 18.9 3 mL/hr Rate/Dose Verify 10/18/2023 4:00 AM TREE SPECIALIST 25 mcg/kg/min 18.9 3 mL/hr protamine 50 mg in sodium chloride 0.9% 50 mL IVPB 50 mg, intravenous, at 110 mL/hr, Administer over 30 Minutes, Once, On Mon10/17/23 at 1730, For 1 dose, Rate not to exceed 50 mg over 10 minutes, Indications: Heparin ToxicityIndications:Heparin Toxicity New Bag 10/17/2023 5:15 PM TREE SPECIALIST 50 m g 110 mL/hr ramelteon (ROZEREM) tablet 8 mg 8 mg, oral, Nightly PRN, sleep, Starting on Mon10/13/23 at 2332, Indications: Sleep-Onset InsomniaIndications:Sleep-Onset Insomnia Given 11/02/2023 8:24 PM CDT 8 mg Given 10/26/2023 10:57 PM TREE SPECIALIST 8 mg Given 10/25/2023 9:05 PM T[facility] SPECIALIST 8 mg ranolazine ER (RANEXA) extended release tablet 500 mg 500 mg, oral, 2 times daily, First dose on Mon10/14/23 at 0130 Given 10/16/2023 9:42 PM TREE SPECIALIST 500 mg Given 10/16/2023 8:18 AM TREE SPECIALIST 500 mg Given 10/15/2023 8:41 AM TREE SPECIALIST 500 mg scopolamine patch 72 hour 1 patch 1 patch, transdermal, Administer over 72 Hours, Once, On Mon10/18/23 at 1945, For 1 dose Medication Applied 10/18/2023 7:28 PM TREE SPECIALIST 1 patch Behind Right Ear senna (SENOKOT) [...] 1 dose New Bag 10/14/2023 2:54 AM TREE SPECIALIST 500 mL sodium chloride 0.9% flush 0.5-20 mL 0.5-20 mL, intra-catheter, Every 8 hours scheduled, First dose on Mon10/14/23 at 0015, Flush volume based on line type and size. Given 10/22/2023 9:19 PM TREE SPECIALIST 10 mL Given 10/22/2023 6:36 PM TREE SPECIALIST 10 mL Given 10/22/2023 8:15 AM TREE SPECIALIST 10 mL sodium chloride 0.9% flush 0.5-20 [...] CDT 10 mL Given 10/28/2023 12:40 AM TREE SPECIALIST 20 mL Given 10/25/2023 9:14 AM TREE SPECIALIST 10 mL sodium chloride 0.9% infusion 50 mL/hr, intravenous, Continuous, Starting on Mon10/17/23 at 0015, Pre-Op/Floor, Start at midnight the day of surgery. New Bag 10/17/2023 12:45 AM TREE SPECIALIST 50 mL/hr 50 mL/hr sodium chloride 0.9% infusion 10 mL/hr, intravenous, Continuous, Starting on Mon10/17/23 at 1400 New Bag 10/17/2023 2:37 PM TREE SPECIALIST 10 mL/hr 10 mL/hr sodium chloride 0.9% IVPB 0-250 mL 0-250 mL, intravenous, Once, On Mon10/17/23 at 1615, For 1 dose, Prime blood tubing and administer amount needed to clear line (usually 50-100 mL) after transfusion complete. New Bag 10/17/2023 4:35 PM TREE SPECIALIST 250 mL sodium chloride 0.9% IVPB 0-250 mL 0-250 mL, intravenous, Once, On Mon10/17/23 at 1615, For 1 dose, Prime blood tubing and administer amount needed to clear line (usually 50-100 mL) after transfusion complete. New Bag 10/17/2023 4:34 PM TREE SPECIALIST 250 mL sodium chloride 0.9% IVPB 0-250 mL 0-250 mL, intravenous, Once, On Mon10/17/23 at 1745, For 1 dose, Prime blood tubing and administer amount needed to clear line (usually 50-100 mL) after transfusion complete. New Bag 10/17/2023 6:27 PM TREE SPECIALIST 250 mL sodium chloride 0.9% IVPB 0-250 mL 0-250 mL, intravenous, Once, On Mon10/17/23 at 1915, For 1 dose, Prime blood tubing and administer amount needed to clear line (usually 50-100 mL) after transfusion complete. New Bag 10/17/2023 8:00 PM TREE SPECIALIST 50 mL sodium chloride tablet 1 g 1 g, oral, 3 times daily with meals, First dose on Mon10/27/23 at 1030, Each 1 gram tablet contains 17 mEq of sodium., On hold since Mon10/29/2023 at 1130 until manually unheld Given 10/29/2023 8:18 AM CDT 1 g Given 10/28/2023 5:24 PM TREE SPECIALIST 1 g Given 10/28/2023 12:46 PM TREE SPECIALIST 1 g sodium chloride tablet 1 g [...] Mon10/14/23 at 1615 Given 10/16/2023 8:19 AM TREE SPECIALIST 100 mg Given 10/15/2023 8:41 AM TREE SPECIALIST 100 mg Given 10/14/2023 4:40 PM TREE SPECIALIST 100 mg torsemide (DEMADEX) tablet 100 mg 100 mg, oral, Daily, First dose on Mon10/19/23 at 0930 Given 10/21/2023 8:37 AM TREE SPECIALIST 100 mg Given 10/20/2023 9:39 AM TREE SPECIALIST 100 mg Given 10/19/2023 11:05 AM T[facility] SPECIALIST 100 mg torsemide (DEMADEX) tablet 100 mg [...] For 1 dose Given 10/20/2023 11:08 PM TREE SPECIALIST 50 mg traMADoL (ULTRAM) tablet 50 mg 50 mg, oral, Once, On Mon10/24/23 at 0000, For 1 dose Given 10/23/2023 11:32 PM TREE SPECIALIST 50 mg traMADoL (ULTRAM) tablet 50 mg 50 mg, oral, Every 8 hours PRN, 1st line for pain, Starting on Mon10/24/23 at 0741 Given 10/27/2023 6:04 AM TREE [facility]IST 50 mg Given 10/26/2023 10:57 PM T[facility] SPECIALIST 50 mg Given 10/26/2023 1:32 PM T[facility]IST 50 mg vancomycin 1500 mg/250 mL in [...] 100-120, Routine Rate/Dose Verify 10/18/2023 8:00 AM TREE SPECIALIST 0.04 Units/min 12 mL/hr Rate/Dose Verify 10/18/2023 6:00 AM TREE SPECIALIST 0.04 Units/min 12 mL/hr Rate/Dose Verify 10/18/2023 5:00 AM TREE SPECIALIST 0.04 Units/min 12 mL/hr vasopressin in 5% dextrose (VASOSTRICT) 20 unit/100 mL (0.2 unit/mL) infusion 0.04 Units/min (12 mL/hr), 0.2 Units/mL, intravenous, Titrated, Starting on Mon10/18/23 at 0915, Until Mon10/18/23 at 1204, Initial rate: Do not titrate, Routine Rate/Dose Verify 10/18/2023 10:00 AM TREE SPECIALIST 0.04 Units/min 12 mL/hr Rate/Dose Verify 10/18/2023 8:58 AM TREE SPECIALIST 0.04 Units/min 12 mL/hr vasopressin in 5% dextrose (VASOSTRICT) 20 unit/100 mL (0.2 unit/mL) infusion 0-0.04 Units/min (0-12 mL/hr), 0.2 Units/mL, intravenous, Titrated, Starting on Mon10/18/23 at 1245, Until Gregoria 10/19/23 at 0541, Initial rate: 0.04 units/min, Titrate: Up/Down, Titrate by: 0.01 units/min, Every: 5 minutes, Goal: SBP, SBP Goal: 110-130 mmHg, Routine Rate/Dose Change 10/18/2023 1:20 PM TREE SPECIALIST 0.01 Units/min 3 mL/hr Rate/Dose Change 10/18/2023 12:30 PM TREE SPECIALIST 0.02 Units/min 6 mL/hr New Bag 10/18/2023 12:15 PM TREE SPECIALIST 0.03 Units/min 9 mL/hr warfarin (COUMADIN) tablet 0.5 mg 0.5 mg, oral, Once (for warfarin), On Mon10/20/23 at 1800, For 1 dose, Target INR: 2 - 2.5, Indications: Mechanical Valve Thromboembolism ProphylaxisIndications:Mechanical Valve Thromboembolism Prophylaxis Given 10/20/2023 5:25 PM T[facility]IST 0.5 mg warfarin (COUMADIN) tablet 1 mg 1 mg, oral, Once (for warfarin), On Mon10/28/23 at 1800, For 1 dose, Target INR: 2 - 2.5, Indications: Mechanical Valve Thromboembolism ProphylaxisIndications:Mechanical Valve Thromboembolism Prophylaxis Given 10/28/2023 5:24 PM T[facility] SPECIALIST 1 mg warfarin (COUMADIN) tablet 1.5 mg 1.5 mg, oral, Once (for warfarin), On Mon10/23/23 at 1800, For 1 dose, Target INR: 2 - 2.5, Indications: Mechanical Valve Thromboembolism ProphylaxisIndications:Mechanical Valve Thromboembolism Prophylaxis Given 10/23/2023 5:10 PM TREE SPECIALIST 1.5 mg warfarin (COUMADIN) tablet 1.5 mg 1.5 mg, oral, Once (for warfarin), On Mon10/24/23 at 1800, For 1 dose, Target INR: 2 - 2.5, Indications: Mechanical Valve Thromboembolism ProphylaxisIndications:Mechanical Valve Thromboembolism Prophylaxis Given 10/24/2023 5:48 PM T[facility] SPECIALIST 1.5 mg warfarin (COUMADIN) tablet 1.5 mg 1.5 mg, oral, Once (for warfarin), On Mon10/25/23 at 1800, For 1 dose, Target INR: 2 - 2.5, Indications: Mechanical Valve Thromboembolism ProphylaxisIndications:Mechanical Valve Thromboembolism Prophylaxis Given 10/25/2023 5:36 PM T[facility] SPECIALIST 1.5 mg warfarin (COUMADIN) tablet 1.5 mg 1.5 mg, oral, Once (for warfarin), On Mon10/27/23 at 1800, For 1 dose, Target INR: 2 - 2.5, Indications: Mechanical Valve Thromboembolism ProphylaxisIndications:Mechanical Valve Thromboembolism Prophylaxis Given 10/27/2023 5:49 PM TREE SPECIALIST 1.5 mg warfarin (COUMADIN) tablet 2 mg [...] Valve Thromboembolism Prophylaxis Given 10/18/2023 6:13 PM TREE SPECIALIST 3 mg warfarin (COUMADIN) tablet 3 mg 3 mg, oral, Once (for warfarin), On Gregoria 10/19/23 at 1800, For 1 dose, Target INR: 2 - 2.5, Indications: Mechanical Valve Thromboembolism ProphylaxisIndications:Mechanical Valve Thromboembolism Prophylaxis Given 10/19/2023 5:21 PM TREE SPECIALIST 3 mg warfarin (COUMADIN) tablet 3 mg 3 mg, oral, Once (for warfarin), On Gregoria 10/26/23 at 1800, For 1 dose, Target INR: 2 - 2.5, Indications: Mechanical Valve Thromboembolism ProphylaxisIndications:Mechanical Valve Thromboembolism Prophylaxis Given 10/26/2023 6:03 PM TREE SPECIALIST 3 mg warfarin (COUMADIN) tablet 4 mg [...] 11/02/2023 11/03/2023 al & mag hydroxide simethicone-diphenhydrami [id number] (MAGIC MOUTHWASH) oral suspension 1-1-1-1 20 mL 20 mL, swish & swallow, Every 6 hours, First dose on Gregoria 10/26/23 at 1400 0203 (Given - Provider: Kezia Palmer, LUAN)0823 (Given - Provider: Yamilet Hay RN)1412 (Given - Provider: Yamilet Hay RN)2027 (Given - Provider: Kezia Palmer RN) 0214 (Given - Provider: Kezia Palmer RN)0924 (Given - Provider: Jessica Rodirguez RN)1310 (Given - Provider: Jessica Rodriguez RN)2023 [...] RN) 0838 (Given - Provider: Jessica Rodriguez, LUAN) aspirin chewable tablet 81 mg(Linked Group 1) [...] 2200, At 10 PM with PD at [place]. Hold if no PD planned., Reason for [...] 0928 (New Bag - Provider: Jessica Rodriguez, LAUN) warfarin (COUMADIN) tablet 2.5 mg (COMPLETED) 2.5 [...] Call MD for each episode of hypoglycemia. CANE FEEDER STATES GLUTOSE-15 CONTAINS GLUCOSE 40% W/W (50% [...] fibrillation 8 (See Alternative - Provider: Abelardo Brar RN) [...] Call MD for each episode of hypoglycemia. CANE FEEDER STATES GLUTOSE-15 CONTAINS GLUCOSE 40% W/W (50% [...] TO ENDOCRINOLOGY 1 10/18/2023 IP CONSULT TO FINISHING MACHINE TENDER 1 IP CONSULT TO CARDIOLOGY 1 10/14/2023 [...] 11/03/2023 documented in this encounter Care Teams [facility] Relationship Specialty Start Date End Date Aditya Correa MD [id number] [facility] [place] [address] PCP - General 10/17/19 documented as of this encounter
--- OUTSIDE RECORDS SUMMARY | 2024-08-24 04:43 | XMS_ITS | Encounter Summary ---
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 Needs CABG (12 or 1300) Procedures N Referral ID Status Reason Start Date Expiration Date Visits Re quested Visits Authorized [id number] 1 1 Encounter Details Date Type Department Care Team (Late st Contact Info) Description 10/17/2023 8:03 AM BINDERY TECHNICIAN Anesthesia Event [facility] Operating Room [address] [place] [id number] Ayden Alan MD [address] [place] [address] Ravi Thacker CRNA [address] [place] [address] Anesthesia Record Procedure Summary Procedure Name Responsible [...] 1006 CPB ON Arterial 24 fr Venous [id number] fr Cdpg kbc 1006 Cooling Start 1006 [...] Date: 10/06/23; Existing LDA Placed by: Other [facility]; Catheter Size: 18 G; Orientation: Anterior, Distal, [...] harvest site; 07/23/24 (Retired LDA, Removed/Completed by [facility] with LDA Utility); 1213 (Retired LDA, Removed/Completed by [employer] with LDA Utility) 10/17/23 0848 by Dee [...] Sternum; sternotomy; 07/23/24 (Retired LDA, Removed/Completed by [facility] with LDA Utility); 1213 (Retired LDA, Removed/Completed by [facility] with LDA Utility) 10/17/23 0914 by Dee Ibarra RN 07/23/24 1213 by Discharge Provider, Automatic RETIRED Surgical Site 10/17/23; 0930; No ; Anterior, Proximal, Right; Herman/tibia; 07/23/24 (Retired LDA, Removed/Completed by [facility] with LDA Utility); 1213 (Retired LDA, Removed/Completed by [facility] with LDA Utility) 10/17/23 0930 by Dee Ibarra RN 07/23/24 1213 by Discharge Provider, Automatic Closed/Suction/Open Drain 10/17/23; 0930; No; Right, Proximal; Thigh; Bulb; 19 Fr.; 1 10/17/23 0930 by Dee Ibarra RN 10/19/23 1515 by Magalie Riley RN RETIRED Surgical Site 10/17/23; 0931; No ; Right, Upper, Anterior, Proximal; Thigh; vein harvest site; 07/23/24 (Retired LDA, Removed/Completed by [facility] with LDA Utility); 1213 (Retired LDA, Removed/Completed by [facility] with LDA Utility) 10/17/23 0931 by [...] Location: Pleural; Size: 28 Fr; Drainage System: [place]/nonsuction water seal drainage, Suction; Sutures Placed: 1; [...] 0.6 oz pur e alcohol) [facility] Utilities Answer Date Recorded In the past 12 months has [employer], gas, oil, or water [employer] threatened to shut off services in your [...] on file Legal Sex Male 3:42 AM BINDERY TECHNICIAN Gender Identity Not on file Sexual Orientation Not on file documented as of this encounter OR Notes * Anesthesia Postprocedure Evaluation - Ayden Alan MD - 10/17/2023 1:35 PM CST Patient: Juvenal Daigle Jr. Procedure Summary Date: 10/17/23 Room / Location: [facility] [place] OPERATING RO[facility] / [facility] OPERATING ROOM Anesthesia Start: 802 Anesthesia Stop: 1334 Procedures: CORONARY ARTERY BYPASS GRAFT, AORTIC VALVE REPLACEMENT (Chest) REPLACEMENT AORTIC VALVE (Chest) Diagnosis: Aortic valve stenosis, etiology of cardiac valve disease unspecified Coronary arteriosclerosis in squaxin artery (Aortic valve stenosis, etiology of cardiac valve disease unspecified [I35.0]) (Coronary arteriosclerosis in squaxin artery [I25.10]) Surgeons: Lorne Mcnulty MD Responsible [...] unable to evaluate No notable events documented. ERY TECHNICIAN * Anesthesia Procedure Notes - Ayden Alan MD - 10/17/2023 9:31 AM BINDERY TECHNICIAN Associated Order(s): LEIA LEIA Date/time: 10/17/2023 9:31 AM Staff: Supervising anesthesiologist: Ayden Alan MD Performed by: Anesthesiologist: Ayden Alan MD 1st ELECTRIC METER TESTER: Ravi Thacker CRNA Preprocedure checklist: patient identified, [...] code: LEIA placement and diagnostic exam, non-congenital (95082) ICD code(s) for medical necessity: I35.2 - [...] inferior: hypokinetic 16- Apical septal: hypokinetic 17- [place]: hypokinetic Valves: Aortic Valve: Annulus: calcified Leaflet [...] valve: Annulus: normal Stenosis: none Regurgitation: trace ([place] -Daniel is transvalvular) Aorta: Ascending aorta: Size: [...] the written comments contained within the report. ERY TECHNICIAN * Anesthesia Procedure Notes - Ayden Alan MD - 10/17/2023 8:56 AM BINDERY TECHNICIAN Associated Order(s): Central Venous Line Central Venous Line Patient location: OR Indication: central venous access and CVP monitoring Staff: Supervising provider: Ayden Alan MD Placed by: ELECTRIC METER TESTER: Ravi Thacker CRNA Procedure prep: Patient position: [...] patient tolerated procedure well with no complications ERY TECHNICIAN * Anesthesia Procedure Notes - Ayden Alan MD - 10/17/2023 8:55 AM BINDERY TECHNICIAN Associated Order(s): Central Venous Line Central Venous Line Patient location: OR Indication: central venous access and CVP monitoring Staff: Supervising provider: Ayden Alan MD Placed by: ELECTRIC METER TESTER: Ravi Thacker CRNA Procedure prep: Patient position: [...] patient tolerated procedure well with no complications ERY TECHNICIAN * Anesthesia Procedure Notes - Ayden Alan MD - 10/17/2023 8:54 AM BINDERY TECHNICIAN Associated Order(s): Arterial Line Arterial Line Patient location: OR Indication: continuous blood pressure monitoring and blood sampling needed Staff: Supervising provider: Ayden Alan MD Placed by: ELECTRIC METER TESTER: Ravi Thacker CRNA Procedure prep: Prep solution: other Prep: provider hat/mask Arterial line: Catheter size: 20 gauge Catheter length: 1 and 3/4 inch Catheter type: wire-guided catheter Seldinger technique: yes Laterality: right Site: radial artery Line secured: tape and Tegaderm Results: good waveform and good blood return Number of attempts: 1 Assessment: Events: patient tolerated procedure well with no complications ERY TECHNICIAN * Anesthesia Procedure Notes - Ayden Alan MD - 10/17/2023 8:53 AM BINDERY TECHNICIAN Associated Order(s): Airway Airway Patient location: OR [...] with: silk tape Number of attempts: 1no ERY TECHNICIAN * Anesthesia Preprocedure Evaluation - Ayden Alan MD - 10/17/2023 6:38 AM CST Images from the original note were not included. Anesthesia Evaluation Juvenal Daigle Jr. is a 53 y.o. 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 10/13/2023 Anemia 06/22/2022 ESRD (end stage renal disease) ([facility]) ([facility]) 06/22/2022 Acute on chronic HFrEF (heart failure with reduced ejection fraction) ([facility]) 06/22/2022 Atrial fibrillation ([facility]) ([facility]) 06/22/2022 NSTEMI (non-ST elevated myocardial infarction) ([facility]) ([facility]) 06/22/2022 Cardiogenic shock ([facility]) 06/22/2022 Acute hypoxemic respiratory failure ([facility]) 06/09/2022 Hypotension 06/03/2022 Abnormal cardiovascular stress test 12/29/2020 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 ([facility]) ([facility]) 05/23/2017 History of coronary artery stent placement 05/23/2017 Macular ischemia 03/17/2017 Combined forms of age-related cataract 03/17/2017 Proliferative diabetic retinopathy associated with type 2 diabetes mellitus ([facility]) 03/17/2017 Type 2 diabetes mellitus treated with insulin ([facility]) ([facility]) 03/25/2015 Chronic kidney disease, stage III (moderate) ([facility]) 03/25/2015 Benign essential hypertension 03/25/2015 Hyperlipidemia 03/25/2015 Pain of finger 11/24/2014 Hypersomnia 11/22/2013 Chronic kidney disease 11/22/2013 Hypertension 01/18/2013 Type 1 diabetes mellitus ([facility]) 01/18/2013 Past Medical History: Diagnosis Date CAD (coronary artery disease) Chest pain Diabetes mellitus ([facility]) Diabetes mellitus type I ([facility]) Dialysis patient ([facility] ([facility]) ESRD on dialysis ([facility]) ([facility]) GERD (gastroesophageal reflux disease) Hyperlipidemia Hypertension [...] PUMP: Continue Omnipod 5 insulin pump with [employer] G6 CGM at home settings: TIME BASAL [...] and agree to proceed. All questions answered. ERY TECHNICIAN ERY TECHNICIAN ERY TECHNICIAN documented in this encounter Miscellaneous Notes * Addendum Note - Ayden Alan MD - 10/18/2023 10:55 AM CST Addendum created 10/18/23 1055 by Ayden Alan MD Intraprocedure Meds edited (Anesthesia) ERY TECHNICIAN * Post-Perfusion - Chang Stout, CCP - 10/17/2023 12:33 PM CST schMedications midazolam (mg) Date/Time Rate/Dose/Volume Action Admin User Audit 10/17/23 0803 2 mg Given Ayden Alan MD 0847 3 mg Given Ayden Alan MD fentaNYL (mcg) Date/Time Rate/Dose/Volume Action Admin User Audit 10/17/23 0803 150 mcg Given Ayden Alan MD 0847 100 mcg Given Ayden Alan [...] User Audit 10/17/23 0804 60 mg Ayden Anotny MD propofol (mcg/kg/min) Dosing weight: 126.2 Date/Time [...] Chang, CCP PLATELETS - CROSSMATCHED [id number] 24 [id number] (mL) Date/Time Rate/Volume Action Admin User Audit 10/17/23 1224 New Bag Ayden Alan MD 1225 200 mL Stopped Ayden Alan MD FFP - CROSSMATCHED [id number] 24 [id number] (mL) Date/Time Rate/Volume Action Admin User Audit 10/17/23 1203 New Bag Ayden Alan MD 1204 277 mL Stopped Ayden Alan MD [id number] 24 [id number] (mL) Date/Time Rate/Volume Action Admin User Audit 10/17/23 1203 New Bag Ayden Alan MD 1204 242 mL Stopped Ayden Alan MD CRYOPRECIP - CROSSMATCHED W2011 23 [id number] (mL) Date/Time Rate/Volume Action Admin User Audit 10/17/23 1204 New Bag Ayden Alan MD 1205 85 mL Stopped Ayden Alan MD W1811 24 [id number] (mL) Date/Time Rate/Volume Action Admin User Audit 10/17/23 1205 New Bag Ayden Alan MD 1206 88 mL Stopped Ayden Alan MD PRBC - CROSSMATCHED W1811 24 [id number] (mL) Date/Time Rate/Volume Action Admin User Audit [...] 1006 CPB ON Arterial 24 fr Venous [id number] fr Cdpg kbc 1006 Cooling Start 1006 [...] Lorne Mcnulty MD at 10/17/2023 5:16 PM BINDERY TECHNICIAN ERY TECHNICIAN ERY TECHNICIAN documented in this encounter Plan of Treatment Not on file documented as of this encounter Procedures Procedure Name Priority Date/Time Associated Diagnosis Comments CO AN PROCEDURE PLACEHOLDER Routine 10/17/2023 9:31 AM BINDERY TECHNICIAN CO AN PROCEDURE PLACEHOLDER Routine 10/17/2023 8:56 AM BINDERY TECHNICIAN CO AN CENTRAL LINE QUADRUPLE LUMEN Routine 10/17/2023 8:56 AM BINDERY TECHNICIAN CO AN PROCEDURE PLACEHOLDER Routine 10/17/2023 8:55 AM BINDERY TECHNICIAN PULMONARY ARTERY CATH Routine 10/17/2023 8:55 AM BINDERY TECHNICIAN BW AN SHEATH INTRODUCER PERFORMABLE Routine 10/17/2023 8:55 AM BINDERY TECHNICIAN CO AN PROCEDURE PLACEHOLDER Routine 10/17/2023 8:54 AM BINDERY TECHNICIAN CO AN PROCEDURE PLACEHOLDER Routine 10/17/2023 8:53 AM BINDERY TECHNICIAN CO AN ELECTIVE ENDOTRACHEAL AIRWAY Routine 10/17/2023 8:53 AM BINDERY TECHNICIAN documented in this encounter Results * CO AN PROCEDURE PLACEHOLDER (10/17/2023 9:31 AM BINDERY TECHNICIAN) Anatomical Region Laterality Modality Other Narrative 10/17/2023 9:31 AM BINDERY TECHNICIAN Ayden Alan MD ? 10/17/2023 ??9:39 AM LEIA Date/time: 10/17/2023 9:31 AM Staff: Supervising anesthesiologist: Ayden Alan MD Performed by: Anesthesiologist: Ayden Alan MD 1st ELECTRIC METER TESTER: Ravi Thacker CRNA Preprocedure checklist: patient identified, [...] code: LEIA placement and diagnostic exam, non-congenital (56360) ICD code(s) for medical necessity: I35.2 - [...] inferior: hypokinetic 16- Apical septal: hypokinetic 17- [place]: hypokinetic Valves: Aortic Valve: Annulus: calcified Leaflet [...] valve: Annulus: normal Stenosis: none Regurgitation: trace ([place] -Daniel is transvalvular) Aorta: Ascending aorta: Size: [...] MD ANESTHESIA ORDERABLES Final Re sult * CO AN CENTRAL LINE QUADRUPLE LUMEN, CO AN PROCEDURE PLACEHOLDER (10/17/2023 8:56 AM BINDERY TECHNICIAN) Narrative Ayden Alan MD - 10/17/2023 8:56 AM BINDERY TECHNICIAN Ayden Alan MD ? 10/17/2023 ??8:57 AM Central Venous Line Patient location: OR Indication: central venous access and CVP monitoring Staff: Supervising provider: Ayden Alan MD Placed by: ELECTRIC METER TESTER: Ravi Thacker CRNA Procedure prep: Patient position: [...] AN SHEATH INTRODUCER PERFORMABLE, PULMONARY ARTERY CATH, CO AN PROCEDURE PLACEHOLDER (48:55 AM BINDERY TECHNICIAN) Narrative Ayden Alan MD - 10/17/2023 8:55 AM BINDERY TECHNICIAN Ayden Alan MD ? 10/17/2023 ??8:56 AM Central Venous Line Patient location: OR Indication: central venous access and CVP monitoring Staff: Supervising provider: Ayden Alan MD Placed by: ELECTRIC METER TESTER: Ravi Thacker CRNA Procedure prep: Patient position: [...] MD ANESTHESIA ORDERABLES Final Re sult * CO AN PROCEDURE PLACEHOLDER (10/17/2023 8:54 AM BINDERY TECHNICIAN) Ayden Barahona MD - 10/17/2023 8:54 AM BINDERY TECHNICIAN Ayden Alan MD ? 10/17/2023 ??8:55 AM Arterial Line Patient location: OR Indication: continuous blood pressure monitoring and blood sampling needed Staff: Supervising provider: Ayden Alan MD Placed by: ELECTRIC METER TESTER: Ravi Thacker CRNA Procedure prep: Prep solution: [...] MD ANESTHESIA ORDERABLES Final Re sult * CO AN ELECTIVE ENDOTRACHEAL AIRWAY, CO AN PROCEDURE PLACEHOLDER (10/17/2023 8:53 AM BINDERY TECHNICIAN) Ayden Barahona MD - 10/17/2023 8:53 AM BINDERY TECHNICIAN Ayden Alan MD ? 10/17/2023 ??8:54 AM [...] Anesthesia Intra-op New Bag 10/17/2023 10:45 AM BINDERY TECHNICIAN calcium chloride IV syringe intravenous, As needed, Starting on Mon10/17/23 at 1203, Anesthesia Intra-op Given 10/17/2023 12:03 PM BINDERY TECHNICIAN 1 g ceFAZolin (ANCEF) injection intravenous, Administer over 3 Minutes, As needed, Starting on Mon10/17/23 at 0834, Anesthesia Intra-op Given 10/17/2023 1:00 PM BINDERY TECHNICIAN 3,000 mg Given 10/17/2023 8:34 AM BINDERY TECHNICIAN 3,000 mg citrate dextrose solution (ACD-A) infusion intravenous, As needed, Starting on Mon10/17/23 at 0847, Anesthesia Intra-op Given 10/17/2023 8:47 AM BINDERY TECHNICIAN 1,000 mL DOBUTamine in dextrose 5% (DOBUTREX) 1,000 mg/250 mL (4,000 mcg/mL) infusion (premix) intravenous, Continuous PRN, Starting on Mon10/17/23 at 1143, Anesthesia Intra-op New Bag 10/17/2023 11:43 AM BINDERY TECHNICIAN 5 mcg/kg/min 9.465 mL/hr fentaNYL (SUBLIMAZE) preservative free injection intravenous, As needed, Starting on Mon10/17/23 at 0803, Anesthesia Intra-op Given 10/17/2023 10:11 AM BINDERY TECHNICIAN 250 mcg Given 10/17/2023 9:48 AM BINDERY TECHNICIAN 250 mcg Given 10/17/2023 9:20 AM BINDERY TECHNICIAN 250 mcg heparin 1,000 unit/mL injection intravenous, As needed, Starting on Mon10/17/23 at 1019, Anesthesia Intra-op Bolus 10/17/2023 11:00 AM BINDERY TECHNICIAN 10,000 Units Bolus 10/17/2023 10:31 AM BINDERY TECHNICIAN 10,000 Units New Bag 10/17/2023 10:19 AM BINDERY TECHNICIAN 10,000 Units heparin 1,000 unit/mL injection intravenous, As needed, Starting on Mon10/17/23 at 0940, Anesthesia Intra-op Bolus 10/17/2023 9:49 AM BINDERY TECHNICIAN 5,000 Units New Bag 10/17/2023 9:40 AM BINDERY TECHNICIAN 45,000 Units insulin regular (HumuLIN R, NovoLIN R) 100 unit/mL injection intravenous, As needed, Starting on Mon10/17/23 at 0940, Anesthesia Intra-op Given 10/17/2023 10:40 AM BINDERY TECHNICIAN 5 Unit s Given 10/17/2023 10:12 AM BINDERY TECHNICIAN 5 Units insulin regular in 0.9% sodium chloride (MYXREDLIN) 100 unit/100 mL (1 unit/mL) infusion (premix) intravenous, Continuous PRN, Starting on Mon10/17/23 at 0843, Anesthesia Intra-op New Bag 10/17/2023 8:43 AM BINDERY TECHNICIAN 2 Units/hr 2 mL/hr Lactated Ringer's (LR) 1,000 mL with albumin 100 mL, heparin 10 mL, mannitol 25 g solution intravenous, Continuous PRN, Starting on Mon10/17/23 at 1006, Anesthesia Intra-op New Bag 10/17/2023 10:06 AM BINDERY TECHNICIAN 1,000 mL mannitol 26 mL, lidocaine (cardiac) (XYLOCAINE) 13 mL, magnesium sulfate 8 mL solution intravenous, Continuous PRN, Starting on Mon10/17/23 at 1203, Anesthesia Intra-op New Bag 10/17/2023 12:03 PM BINDERY TECHNICIAN 31 mL midazolam (VERSED) 1 mg/mL preservative free injection intravenous, Administer over 2 Minutes, As needed, Starting on Mon10/17/23 at 0803, Anesthesia Intra-op Given 10/17/2023 8:47 AM BINDERY TECHNICIAN 3 mg Given 10/17/2023 8:03 AM BINDERY TECHNICIAN 2 mg norepinephrine in dextrose 5% (LEVOPHED) 8,000 mcg/250 mL (32 mcg/mL) infusion (premix) intravenous, Continuous PRN, Starting on Mon10/17/23 at 0825, Anesthesia Intra-op Rate/Dose Change 10/17/2023 11:43 AM BINDERY TECHNICIAN 0.05 mcg/kg/min 11.831 mL/hr New Bag 10/17/2023 8:25 AM BINDERY TECHNICIAN 0.03 mcg/kg/min 7.099 mL /hr phenylephrine (JOAQUÍN-SYNEPHRINE) injection intravenous, As needed, Starting on Mon10/17/23 at 1148, Anesthesia Intra-op Given 10/17/2023 11:48 AM BINDERY TECHNICIAN 300 mc g Given 10/17/2023 10:39 AM BINDERY TECHNICIAN 300 mcg Given 10/17/2023 10:32 AM BINDERY TECHNICIAN 300 mcg potassium chloride 2 mEq/mL arrest solution intracardiac, As needed, Starting on Mon10/17/23 at 1146, Anesthesia Intra-op Given 10/17/2023 11:46 AM BINDERY TECHNICIAN 46 mEq propofoL (DIPRIVAN) 10 mg/mL IV intravenous, As needed, Starting on Mon10/17/23 at 0804, Anesthesia Intra-op New Bag 10/17/2023 8:04 AM BINDERY TECHNICIAN 60 mg propofoL (DIPRIVAN) 10 mg/mL IV intravenous, Continuous PRN, Starting on Mon10/17/23 at 0840, Anesthesia Intra-op New Bag 10/17/2023 8:40 AM BINDERY TECHNICIAN 25 mcg/kg/min 18.93 mL/hr protamine injection intravenous, As needed, Starting on Mon10/17/23 at 1209, Anesthesia Intra-op, Indications: Heparin ToxicityIndications:Heparin Toxicity Given 10/17/2023 12:09 PM BINDERY TECHNICIAN 500 mg rocuronium (ZEMURON) injection intravenous, As needed, Starting on Mon10/17/23 at 0804, Anesthesia Intra-op Given 10/17/2023 11:50 AM BINDERY TECHNICIAN 30 mg Given 10/17/2023 9:46 AM BINDERY TECHNICIAN 50 mg Given 10/17/2023 8:04 AM BINDERY TECHNICIAN 100 mg sodium bicarbonate 8.4 % (1 mEq/mL) injection intravenous, Administer over 5 Minutes, As needed, Starting on Mon10/17/23 at 1019, Anesthesia Intra-op Given 10/17/2023 11:24 AM BINDERY TECHNICIAN 25 mEq Given 10/17/2023 10:34 AM BINDERY TECHNICIAN 25 mEq Given 10/17/2023 10:30 AM BINDERY TECHNICIAN 25 mEq Transfuse cryoprecipitate (pooled units) Timed New Bag 10/17/2023 12:04 PM BINDERY TECHNICIAN Transfuse cryoprecipitate (pooled units) Timed New Bag 10/17/2023 12:05 PM BINDERY TECHNICIAN Transfuse plasma Timed New Bag 10/17/2023 12:03 PM BINDERY TECHNICIAN Transfuse plasma Timed New Bag 10/17/2023 12:03 PM BINDERY TECHNICIAN Transfuse platelets Timed New Bag 10/17/2023 12:24 PM BINDERY TECHNICIAN Transfuse RBC Timed New Bag 10/17/2023 12:09 PM BINDERY TECHNICIAN documented in this encounter Care Teams System Manager Relationship Specialty Start Date End Date Aditya Castro MD [address] [place] [address] PCP - General 10/17/19 documented as of this encounter
--- OUTSIDE RECORDS SUMMARY | 2024-08-24 04:43 | XMS_ITS | Encounter Summary ---
Author Organization [facility] Healthcare Address [address] [place] [address] Care Team Providers Care Hydraulic Design Engineer Name Role Phone Aditya Castro MD Primary Care Provider [phone] Encounter Details Date Type Department Care Team (Late st Contact Info) Description 10/17/2023 Orders Only [facility] Cardiology [address] [place] [address] Mesha Castro MD [address] [place] [id number] Social History Tobacco Use Types Packs/Day Years Used Date Smoking Tobacco: Never Smokeless Tobacco: Former Alcohol Use Standard Drinks/Week Comments No 0 (1 standard drink = 0.6 oz pur e alcohol) [facility] Utilities Answer Date Recorded In the past 12 months has [employer], gas, oil, or water [employer] threatened to shut off services in [...] week 10/16/2023 How often do you attend [facility] or orthodox services? 1 to 4 times per year 10/16/2023 Do you belong to any clubs o r organizations such as worship groups, unions, fraternal or athletic groups, or [...] on file Legal Sex Male 3:42 AM NATIONAL ACCOUNT REPRESENTATIVE Gender Identity Not on file Sexual Orientation Not on file documented as of this encounter Plan of Treatment Not on file documented as of this encounter Procedures Procedure Name Priority Date/Time Associated Diagnosis Comments CARDIOLOGY DOCUMENT SCAN Routine 10/13/2023 2:17 PM NATIONAL ACCOUNT REPRESENTATIVE CARDIOLOGY DOCUMENT SCAN Routine 10/12/2023 2:15 PM NATIONAL ACCOUNT REPRESENTATIVE CARDIOLOGY DOCUMENT SCAN Routine 10/11/2023 2:09 PM NATIONAL ACCOUNT REPRESENTATIVE documented in this encounter Results * Cardiology Document Scan (10/13/2023 2:17 PM NATIONAL ACCOUNT REPRESENTATIVE) Anatomical Region Laterality Modality Other us Abelardo Petit MD CV CARDIAC SERVICES PROC EDURES Final Result * Cardiology Document Scan (10/12/2023 2:15 PM NATIONAL ACCOUNT REPRESENTATIVE) Anatomical Region Laterality Modality Other us Ripa Lianne Castro MD CV CARDIAC SERVICES PRO CEDURES Final Result * Cardiology Document Scan (10/11/2023 2:09 PM NATIONAL ACCOUNT REPRESENTATIVE) Anatomical Region Laterality Modality Other us Ripa Lianne Castro MD CV CARDIAC SERVICES PRO CEDURES Final Result documented in this encounter Visit Diagnoses Not on filedocumented in this encounter Care Teams Hydraulic Design Engineer Relationship Specialty Start Date End Date Aditya Castro MD [address] [facility] [place] [address] PCP - General 10/17/19 documented as of this encounter
--- OUTSIDE RECORDS SUMMARY | 2024-08-24 04:44 | XMS_ITS | Encounter Summary ---
Author Organization [facility] Healthcare Address [address] [place] [address] Care Team Providers Care Filament Wound Parts Fabricator Name Role Phone Aditya Correa MD Primary Care Provider [phone] Reason for Visit * Auth/Cert Specialty Diagnoses / Procedures Referred By Aguilar t Referred To Contact Diagnoses CAD in [place] artery Needs CABG (12 or 1300) Procedures N Referral ID Status Reason Start Date Expiration Date Visits Re quested Visits Authorized [id number] 1 1 Encounter Details Date Type Department Care Team (Late st Contact Info) Description 10/17/2023 8:00 AM STORE CONSULTANT - 10/17/2023 12:50 PM STORE CONSULTANT Surgery [facility] Operating Room [address] [place] [address] Jaqueline Valero MD [address] [facility] [address] [place] [address] CORONARY ARTERY BYPASS GRAFT, AORTIC VALVE REPLACEMENT Surgery Details Date/Time Status Location OR Service Patient Class Case Class Case Type Trauma Case? 10/17/2023 8:00 AM Posted [facility] OPERATING ROOM OR Cardiothoracic Inpatient Elective Panel [...] drink = 0.6 oz pur e alcohol) [facility] Utilities Answer Date Recorded [...] often do you attend chur ch or catholic services? 1 to 4 times per year 10/16/2023 Do you belong to any clubs o r organizations such as synagogue groups, unions, fraternal or athletic groups, or [...] on file Legal Sex Male 3:42 AM STORE CONSULTANT Gender Identity Not on file Sexual Orientation Not on file documented as of this encounter Last Filed Vital Signs Vital Sign Reading Time Taken Comments Blood Pressure 118/59 10/17/2023 7:16 AM STORE CONSULTANT Pulse 60 10/17/2023 7:22 AM STORE CONSULTANT Temperature 36.8 ??C (98.2 ??F) 10/17/2023 1 2:15 AM STORE CONSULTANT Respiratory Rate 12 10/17/2023 7:16 AM STORE CONSULTANT Oxygen Saturation 96% 10/17/2023 7:16 AM STORE CONSULTANT Inhaled Oxygen Concentration - - Weight 126.2 kg (278 lb 3.5 oz) 10/16/2023 9:00 AM STORE CONSULTANT Height 177.8 cm (5' 10 ) 10/13/2023 11: 22 PM STORE CONSULTANT Body Mass Index 39.48 10/17/2023 12:52 PM STORE CONSULTANT documented in this encounter Discharge Summaries * [...] 53-year-old male who has been transferred to [facility] for consideration of coronary artery bypass grafting and aortic valve replacement. His past medical history includes severe CAD with previous PCI, paroxysmal atrial fibrillation, type 1 diabetes mellitus, ESRD on peritoneal dialysis, hypertension, hyperlipidemia, and sleep apnea. He presented to [facility] in [place], [place] on 10/09/23 complaining of fatigue, malaise, [...] the catheterization. He has been transferred to [facility] for consideration of coronary artery bypass and [...] PUMP: Continue Omnipod 5 insulin pump with Vivint G6 CGM at home settings: TIME BASAL RATE TOTAL BASAL DAILY DOSE: 65.85 0330 1.7 units/hour 0800 0.8 units/hour 2000 5.8 units/hour Commonly known as: HumaLOG, ADMELOG levothyroxine 25 mcg tablet Take 1 tablet (25 mcg total) by mouth corrective and manual arts therapist before breakfast Commonly known as: SYNTHROID Start [...] REDNESS OR DRAINAGE OF INCISIONS OR FEVERS [phone] Diet Instructions Adult Discharge Diet Diet Type: Restrict salt intake to less than 4000 mg per day Low fat intake Diabetic renal diet. Heart healthy diet. Limit foods high in Vitamin K while taking Coumadin. High protein intake. Other Instructions Ambulatory referral to Home Health Service Line: Home Health Primary disciplines requested: [facility]: Disease and Medication Management [...] Center 11/22/2023 9:30 AM Jaqueline Valero MD [facility] [id number] PSA Contact Information for Follow-ups [facility] Home Care Services Specialty: Home Health and Hospice [address] [facility] [address] Next Steps: Follow up Questions: Service Line: Home Health Primary disciplines requested: [facility]: Disease and Medication Management [...] Family Medicine Relationship: PCP - General [address] [facility] [id number] Next Steps: Follow up Comments: Follow up with established provider: 4 weeks Questions: To provider: ADITYA CORREA [facility] [address] [place] [id number] Next Steps: Follow up Comments: Dr. Valero is patient's Cardiothoracic Surgeon and will not be managing patient during Cardiac Rehab. Please contact patient's established Tattoo Artist, Dr. Hamlet Ortega, for additional information. Questions: Please select the performing region: External Order To loc/pos: [facility] Inpatient POS Select a phase: Phase 2 # of visits: 1 Referral Status: External - Ready to Schedule Cosigned by Jaqueline Valero MD at 11/04/2023 2:05 PM CDT documented in this encounter Discharge Instructions * Discharge Instr - Diet* Carly Spencer RD - 10/20/2023 3:29 PM STORE CONSULTANT Diabetic renal diet. Heart healthy diet. Limit foods high in Vitamin K while taking Coumadin. High protein intake. E CONSULTANT E CONSULTANT * Attachments The following attachments cannot be sent through Care Everywhere. * CABG (Coronary Artery Bypass Graft) (Discharge Care) ([place]) * Transcatheter Aortic Valve Replacement (Discharge Care) ([place]ian) * Sternal Precautions (Animal Eviscerator) ([place]ian) * Warfarin (By mouth) ([place]) documented in this encounter Medications at Time of Discharge aspirin 81 mg enteric coated tabletIndications:My ocardial [...] times a day before breakfast and lunch icosapent ethyL (VASCEPA) 1 gram capsuleIndications:h ypertriglyceridemia Take 2 capsules (2 g total) by mouth 2 (two) times a day insulin lispro (HumaLOG, ADMELOG) 100 unit/mL vial for injectionIndications :type 2 diabetes mellitus THIS IS FOR THE INSULIN PUMP: Continue Good Eggs 5 insulin pump with Vivint G6 CGM at home settings: TIME BASAL RATE TOTAL BASAL DAILY DOSE: 65.85 0330 1.7 units/hour 0800 0.8 units/hour 2000 5.8 units/hour 06/29/2022 omeprazole (PriLOSEC) 20 mg capsuleIndications:G I Bleed,prevention Take 1 capsule (20 mg total) by mouth daily acetaminophen 500 mg capsuleIndications:P ain Take 1 capsule (500 mg total) by mouth every 6 (six) hours as needed for pain 11/03/2023 HYDROcodone-acetamin ophen (NORCO) 5-325 mg per tabletIndications:Pa in Take 1 tablet by mouth every 4 (four) hours as needed for pain 30 tablet 11/03/2023 ketoconazole (NIZORAL) 2 % shampoo APPLY EXTERNALLY 2 TO 3 TIMES EVERY WEEK NEEDED 04/23/2019 levothyroxine (SYNTHROID) 25 mcg tabletIndications:hy pothyroidism Take 1 tablet (25 mcg total) by mouth corrective and manual arts therapist before breakfast 30 tablet 1 11/04/2023 Linzess 72 mcg capsule Take 1 capsule every day by oral route as directed for 90 days. 07/10/2023 metoprolol tartrate (LOPRESSOR) 25 mg immediate release tabletIndications:hy pertension Take 0.5 tablets (12.5 mg total) by mouth 2 (two) times a day 30 tablet 1 11/03/2023 nitroglycerin (NITROSTAT) 0.4 mg SL tablet 12/27/2017 peg 304-vanclrygeeeb-ics cerin (ARTIFICAL TEARS) 1-0.2-0.2 % ophthalmic solution [...] 1 tablet (25 mcg total) by mouth corrective and manual arts therapist before breakfast 30 tablet 1 11/04/2023 HYDROcodone-acetamin [...] 53 y.o. male. Admit Dx: CAD in [place] artery [I25.10]. Admitted on 10/13/2023. Patient's intake is adequate. Objective Dietary Orders (From admission, onward) Start Ordered 10/26/23 1235 Adult Diet Restricted; Consistent Carbohydrate; Renal; 1000mL = Diet 700/Nursing 300 Diet effective now Question Answer Comment ([facility]) Diet type Restricted Diabetic: Consistent Carbohydrate Renal: [...] Review: Scheduled Meds: al & mag hydroxide gatuxztxxtg-dlqaqiabaycbtep-vwubmeerh-nystatin, 20 mL, swish & swallow, Q6H amiodarone, [...] of Weight Used for Estimated Protein : [place] Protein Needs Based on g/k.4 Total Protein Estimated Needs (gm): 105.42 Kcal/kg Type of Weight Used for Estimated Kcals: [place] Kcal/k Total Kcal/kg Estimated Needs : 2259 [...] consistent carbohydrate and renal diet. Plan: Added weaving supervisor check to pt's diet to help [...] ESRD on peritoneal dialysis initially presented to [facility] in [facility] on October 09 for symptoms of general [...] regimen of PD Follow-up with his primary cookie mixer helper Fernandez Carranza MD [facility]: MD Chula Domínguez, MD Renny Flood PA Derek Larson, MD FASN Rose Mattli, NP Rohan Devanpalli, MD Candace Shirley, ROBERTO [address] [place], [place] [address] [phone] - Office [phone] - Fax * Nusrat Us [facility] - 11/03/2023 11:05 AM CDT Warfarin monitoring [...] 7.6 monitor for now Joselin Strickland MD [facility] SUBJECTIVE: Mr. Garvin is doing well [...] Dose Route Frequency al & mag hydroxide yorrhjsbrzw-wexguvsvfjijxjj-aeyrdltqx-nystatin (MAGIC MOUTHWASH) oral suspension 1-1-1-1 20 mL [...] sternotomy healing well ASSESSMENT/PLAN: CAD - prior MA with multiple PCI - [facility] showed multivessel disease - LVEF dropped [...] -venous doppler shows no DVT SHAMIKA Donald [facility] 11/03/2023 10:59 AM * [...] yesterday Levothyroxine 25 mcg started per Endocrine [place] prn for pain control CPAP nightly Stress ulcer prophylaxis: Protonix DVT prophylaxis: coumadin dosing PT/OT Plan reviewed with LESLY Vallecillo 11/02/2023 * Nida Starr, FLAT OPTICAL ELEMENT MAKER - 11/02/2023 2:54 PM CDT Physical Therapy [...] Comments Incentive spirometer x 10 reps fom [id number] Transfer 1 Transfer From 1 Sit;Chair with [...] (from Physical Therapy) Active Problems Problem: PT [facility] Start Date: 10/21/23 Goal Start Date Expected End Date End Date PT LTG - [facility] 1 10/21/23 11/04/23 -- Goal Details: Patient will perform supine<>sit Independent. Goal Start Date Expected End Date End Date PT [facility] - [facility] 2 10/21/23 11/04/23 -- Goal Details: Patient will perform bed<>chair transfer Modified Independent with ww. Goal Start Date Expected End Date End Date PT [facility] - [facility] 3 10/21/23 11/04/23 -- Goal Details: Patient will ambulate 350 feet Modified Independent with wheeled walker. Goal Start Date Expected End Date End Date PT [facility] - [facility] 4 10/21/23 11/04/23 -- Goal Details: Patient [...] ESRD on peritoneal dialysis initially presented to [facility] in [facility] on October 09 for symptoms of general [...] free T4, synthroid started Fernandez Carranza MD [facility]: MD Chula Domínguez, MD Renny Flood, MD STANISLAV Camacho, MD Shanda Pederson NP [address] [place], [place] [address] [phone] - Office [phone] - Fax * Pradeep Reeves NP - [...] Dose Route Frequency al & mag hydroxide dbrxculsarx-rwiqulthlkbrozd-iodlyprbf-nystatin (MAGIC MOUTHWASH) oral suspension 1-1-1-1 20 mL [...] sternotomy healing well ASSESSMENT/PLAN: CAD - prior MA with multiple PCI - [facility] showed multivessel disease - LVEF dropped [...] -venous doppler shows no DVT SHAMIKA Donald [facility] 11/02/2023 12:53 PM * [...] 1.81 today Metoprolol 12.5 mg BID for beta-umiar therapy Amiodarone 200 mg daily for anti-arrhythmic therapy Atorvastatin and Ezetimibe for lipid lowering therapy Torsemide 100 mg BID for diuresis, peritoneal dialysis nightly, Nephrology managing Continue Phoslo, Calcitriol, and Retacrit weekly Home insulin pump for glucose control, Endocrinology following Continue Ancef and Vancomycin for left lower extremity cellulitis [place] prn for pain control CPAP nightly Stress [...] ESRD on peritoneal dialysis initially presented to [facility] in [facility] on October 09 for symptoms of general [...] a cardiology consultation which lead to a [facility]. Results were notable for severe CAD [...] free T4, synthroid started Fernandez Carranza MD [facility]: MD Chula Domínguez, MD Renny Flood PA Derek Larson, MD FASN Rose Mattli, NP Rohan Devanpalli, MD Candace Shirley, ROBERTO [address] [place] [address] [phone] - Office [phone] - Fax * Sophia Peoples COTA - [...] permanent denture broke after biting into an belarusian muffin. Incisional pain is well controlled. OBJECTIVE: [...] Dose Route Frequency al & mag hydroxide yyqloobhmbf-eqoaxiduanupitz-apocwsdlq-nystatin (MAGIC MOUTHWASH) oral suspension 1-1-1-1 20 mL [...] sternotomy healing well ASSESSMENT/PLAN: CAD - prior MA with multiple PCI - [facility] showed multivessel disease - LVEF dropped [...] -venous doppler shows no DVT SHAMIKA Donald [facility] 11/01/2023 10:22 AM Agree with above note Feels better No chest pain BP stable S/P CABG, AVR ONX Om heparin and warfarin In sinus rhythm On antibiotics for cellulitis Patrick Almonte MD, FACC * Nusrat Us [facility] - 11/01/2023 9:40 AM CDT Warfarin monitoring [...] add Vancomycin for left lower extremity cellulitis [place] prn for pain control CPAP nightly Encouraged [...] ESRD on peritoneal dialysis initially presented to [facility] in [facility] on October 09 for symptoms of general [...] free T4, synthroid started Fernandez Carranza MD [facility]: MD Chula Domínguez PA Graeme Mindel, MD Justin Krafft, PA Derek Larson, MD FASN Rose Mattli, NP Rohan Devanpalli, MD Candace Shirley, NP [address] [place], [place] [address] [phone] - Office [phone] - Fax * Nida Starr, LUIS - [...] Date Expected End Date End Date PT [facility] 1 10/21/23 11/04/23 -- Goal Details: Patient will perform supine<>sit Independent. Goal Start Date Expected End Date End Date PT [facility] 2 10/21/23 11/04/23 -- Goal Details: Patient will perform bed<>chair transfer Modified Independent with ww. Goal Start Date Expected End Date End Date PT [facility] 3 10/21/23 11/04/23 -- Goal Details: Patient will ambulate 350 feet Modified Independent with wheeled walker. Goal Start Date Expected End Date End Date PT [facility] 4 10/21/23 11/04/23 -- Goal Details: Patient will ambulate up/down 1 step Modified Independent as needed to enter and exithome. Cosigned by Kamryn Mendez, PT at 10/31/2023 2:01 PM CDT * Nusrat Us [facility] - 10/31/2023 10:02 AM CDT Warfarin monitoring [...] Dose Route Frequency al & mag hydroxide wbpbelxryqy-xmxgyvboqjqaoqw-mkhmoslki-nystatin (MAGIC MOUTHWASH) oral suspension 1-1-1-1 20 mL [...] sternotomy healing well ASSESSMENT/PLAN: CAD - prior MA with multiple PCI - [facility] showed multivessel disease - LVEF dropped [...] doppler shows no DVT Emiliana Dickson NP [facility] 10/31/2023 8:40 AM * [...] -- Will monitor daily Tim Richard PharmD [facility] Clinical Pharmacist Specialist 10/31/23 7:50 AM Vancomycin [...] 1 View - Portable - in AM [[id number]] Collected: 10/26/2340 Order Status: Completed Updated: 10/26/23742 [...] Continue Ancef for left lower extremity cellulitis [place] prn for pain control CPAP nightly Encouraged incentive spirometer use and increased activity Stress ulcer prophylaxis: Protonix DVT prophylaxis: INR therapeutic PT/OT: Inpatient rehab denied by insurance, will explore alternative options Plan reviewed with LESLY Larose 10/30/2023 * Nida Starr, FLAT OPTICAL ELEMENT MAKER - 10/30/2023 11:37 AM CDT Physical Therapy [...] Date Expected End Date End Date PT [facility] - [facility] 1 10/21/23 11/04/23 -- Goal Details: Patient will perform supine<>sit Independent. Goal Start Date Expected End Date End Date PT [facility] - [facility] 2 10/21/23 11/04/23 -- Goal Details: Patient will perform bed<>chair transfer Modified Independent with ww. Goal Start Date Expected End Date End Date PT [facility] - [facility] 3 10/21/23 11/04/23 -- Goal Details: Patient will ambulate 350 feet Modified Independent with wheeled walker. Goal Start Date Expected End Date End Date PT [facility] - [facility] 4 10/21/23 11/04/23 -- Goal Details: Patient [...] ESRD on peritoneal dialysis initially presented to [facility] in [facility] on October 09 for symptoms of general [...] free T4, synthroid started Fernandez Carranza MD [facility]: MD Chula Domínguez, MD Renny Flood PA Derek Larson, MD FASN Rose Mattli, MD Shanda Pederson, ROBERTO [address] [place] [address] [phone] - Office [phone] - Fax * Joselin Strickland MD - [...] any further issues overnight Joselin Strickland MD [facility] SUBJECTIVE: Mr. Garvin is sitting up in [...] Dose Route Frequency al & mag hydroxide vekhgqlpsgh-pqvezkbgvhdyjmr-mfihswabe-nystatin (MAGIC MOUTHWASH) oral suspension 1-1-1-1 20 mL [...] sternotomy healing well ASSESSMENT/PLAN: CAD - prior MA with multiple PCI - [facility] showed multivessel [...] cellulitis. -venous doppler pending Emiliana Dickson NP [facility] 10/30/2023 8:17 AM * [...] ESRD on peritoneal dialysis initially presented to [facility] in [facility] on October 09 for symptoms of general [...] D/W nursing and Dr. Thao Walker MD [facility]: Ron R. Phelps, MD ChulaLESLY Queen MD Justin Krafft, PA Derek Larson, MD FASN Rose Mattli, NP Rohan Devanpalli, MD Candace Shirley, NP [address] [place], [place] [address] [phone] - Office [phone] - Fax * Manda Schaffer NP - [...] Dose Route Frequency al & mag hydroxide fbdxwihsctq-bhtfdiqukhctulb-omcgdlehe-nystatin (MAGIC MOUTHWASH) oral suspension 1-1-1-1 20 mL [...] sternotomy healing well ASSESSMENT/PLAN: CAD - prior MA with multiple PCI - [facility] showed multivessel [...] LLE -venous doppler pending Manda Schaffer NP [facility] 10/29/2023 9:35 AM Cosigned [...] 2.64 today Metoprolol 12.5 mg BID for beta-umari therapy Amiodarone 200 mg daily for anti-arrhythmic [...] discharge Plan reviewed with LESLY Mack 10/28/2023 E CONSULTANT * Sophia Peoples COTA - 10/28/2023 2:17 [...] [place] OT at 10/30/2023 1:30 PM CDT E CONSULTANT * Adam Walker MD - 10/28/2023 1:22 PM CST Images from the original note were not included. Nephrology Juvenal Garvin Jr. - 1970 Primary : Aditya Correa MD History and interval events: 53-year-old gentleman with history of type 1 diabetes mellitus on insulin pump, CHF, CAD, ESRD on peritoneal dialysis initially presented to [facility] in [facility] on October 09 for symptoms of general [...] T4, consider thyroid supplementation? Adam Walker MD [facility]: MD Chula Domínguez, MD Renny Flood PA Derek Larson, MD FASN Rose Mattli, NP Rohan Devanpalli, MD Candace Shirley, ROBERTO [address] [place] [address] [phone] - Office [phone] - Fax E CONSULTANT * Manda Schaffer NP - 10/28/2023 8:01 [...] Dose Route Frequency al & mag hydroxide ybkvcjdymsp-oqvpxxazzmbmzfw-huwumgxhm-nystatin (MAGIC MOUTHWASH) oral suspension 1-1-1-1 20 mL [...] sternotomy healing well ASSESSMENT/PLAN: CAD - prior MA with multiple PCI - [facility] showed multivessel disease - LVEF dropped to ~25% (was 65% in 05/2022) - s/p CABG x3 and AVR on 10/17/23 with BIRCE to LAD, SVG to OM, SVG to [...] management per primary/nephrology team Manda Schaffer, ROBERTO [facility] 10/28/2023 8:02 AM Cosigned by Ramirez Newberry MD at 10/28/2023 1:08 PM STORE CONSULTANT E CONSULTANT E CONSULTANT * Yolanda Campos PA - 10/27/2023 6:58 [...] Intake/Output Summary (Last 24 hours) at 10/27/2023 2959 Last data filed at 10/27/2023 0850 Gross [...] discharge Plan reviewed with LESLY Pantoja 10/27/2023 E CONSULTANT * Taylor Jorge, GAVIN - 10/27/2023 2:33 PM CST Nutrition Follow-up Progress Note Encounter Date: 10/27/23 2:33 PM Nutrition Progress Summary: Patient is a 53 y.o. male. Admit Dx: CAD in [place] artery [I25.10]. Admitted on 10/13/2023. Patient's intake is adequate. Objective Dietary Orders (From admission, onward) Start Ordered 10/26/23 1235 Adult Diet Restricted; Consistent Carbohydrate; Renal; 1000mL = Diet 700/Nursing 300 Diet effective now Question Answer Comment ([facility]) Diet type Restricted Diabetic: Consistent Carbohydrate Renal: [...] Review: Scheduled Meds: al & mag hydroxide zaddyhjqmvc-uubpbetvyixkcmg-vhqzaxzsc-nystatin, 20 mL, swish & swallow, Q6H amiodarone, [...] of Weight Used for Estimated Protein : [place] Protein Needs Based on g/k.4 Total Protein Estimated Needs (gm): 105.42 Kcal/kg Type of Weight Used for Estimated Kcals: [place] Kcal/k Total Kcal/kg Estimated Needs : 2259 [...] High protein intake. Taylor Jorge RD, LD E CONSULTANT * Sophia Peoples COTA - 10/27/2023 1:25 [...] Suzie Aiken OT at 10/27/2023 2:23 PM STORE CONSULTANT E CONSULTANT E CONSULTANT * Joselin Strickland MD - 10/27/2023 12:02 [...] oral Q6H PRN al & mag hydroxide ksacsovdmth-iynrlpeztwdlxlj-sqkkqjvyh-nystatin (MAGIC MOUTHWASH) oral suspension 1-1-1-1 20 mL [...] Rate: 100 bpm RR Interval: 599 msec OR Interval: 0 msec QRS Duration: 145 msec QT Interval: 394 msec QTC Interval: 451 msec P-R-T [place]: 0 - -9 - 132 degrees IMPRESSION: NORMAL SINUS RHYTHM [REASON: NORMAL P AXIS, OR, RATE \T\ RHYTHM] LEFT BUNDLE BRANCH BLOCK OCCASIONAL PVC Electronically Signed By: Jesus Huerta MD ASSESSMENT/PLAN: CAD - prior MA with multiple PCI - [facility] showed multivessel [...] management per primary/nephrology team Joselin Strickland MD, [facility] [phone] [facility] 10/27/2023 12:02 PM E CONSULTANT * Fernandez Carranza MD - 10/27/2023 9:44 AM CST Images from the original note were not included. Nephrology Juvenal Garvin Jr. - 1970 Primary : Aditya Correa MD History and interval events: 53-year-old gentleman with history of type 1 diabetes mellitus on insulin pump, CHF, CAD, ESRD on peritoneal dialysis initially presented to [facility] in [facility] on October 09 for symptoms of general [...] will see this weekend Fernandez Carranza MD [facility]: MD Chula Domínguez PA Graeme Mindel, MD Justin Krafft, PA Derek Larson, MD FASN Rose Mattli, NP Rohan Devanpalli, MD Candace Shirley, NP [address] [place], [place] [address] [phone] - Office [phone] - Fax E CONSULTANT E CONSULTANT * Guerline Rodriguez PA - 10/26/2023 4:12 [...] 1 View - Portable - in AM [[id number]] Collected: 10/26/23739 Order Status: Completed Updated: 10/26/23742 [...] discharge Plan reviewed with LESLY Larose 10/26/2023 E CONSULTANT * Pradeep Reeves NP - 10/26/2023 2:16 PM CST Cardiology Daily Progress - [facility] SUBJECTIVE: Mr. Garvin is lying in bed. He complains of incisional pain. Breathing is okay. Edema present. Review of Systems: Review of systems per HPI and otherwise all other systems are negative OBJECTIVE: Scheduled Medications Medication Dose Route Frequency acetaminophen (TYLENOL) tablet 1,000 mg 1,000 mg oral Q6H ASHLEY al & mag hydroxide yymffimhjdc-glutcdchjydkofu-sysauhcvl-nystatin (MAGIC MOUTHWASH) oral suspension 1-1-1-1 20 mL [...] No focal deficits ASSESSMENT/PLAN: CAD - prior MA with multiple PCI - [facility] showed multivessel disease - LVEF dropped [...] - management per primary/nephrology team SHAMIKA Donald [facility] 10/26/2023 2:17 PM E CONSULTANT * Fernandez Carranza MD - 10/26/2023 12:29 PM CST Images from the original note were not included. Nephrology Juvenal Garvin Jr. - 1970 Primary : Aditya Correa MD History and interval events: 53-year-old gentleman with history of type 1 diabetes mellitus on insulin pump, CHF, CAD, ESRD on peritoneal dialysis initially presented to [facility] in [facility] on October 09 for symptoms of general [...] a cardiology consultation which lead to a [facility]. Results were notable for severe CAD and he was recommended to seek surgical revascularization evaluation prompting transfer to this facility. He missed his peritoneal dialysis last evening during transfer. He has been on peritoneal dialysis for approximately 2 years and tolerating this well under the care of Dr. Reyes. He does make some urine. [facility] Warfarin started for history of [...] PO4 binder with meals Fernandez Carranza MD [facility]: MD Chula Domínguez, MD Renny Flood PA Derek Larson, MD FASN Rose Mattli, NP Rohan Devanpalli, MD Candace Shirley, NP [address] [place], [place] [address] [phone] - Office [phone] - Fax E CONSULTANT * Nusrat Us RPh - 10/26/2023 11:17 [...] previous supratherapeutic response to 3 mg doses. E CONSULTANT * Gustavo Swan, PT - 10/26/2023 10:10 [...] of ESRD on PD, CAD s/p PCI, MA, and DVTon chronic anticoagulation, Type 1 DM, HTN who presented to [facility] initially on 10/09/23 with general malaise and found to be in DKA and admitted to ICU. During hospitalization found to have elevated Troponins prompted cardiology evaluation and LHC significant for multivessel CAD and subse quently also found aortic stenosis. Transferred to [facility] 10/14/23 for surgical evaluation. Patient isnow s/p [...] Mobility Status;Inaccessible home environment;Home environment challenged Modified Upson Score 1 Plan Plan Continue with current [...] (from Physical Therapy) Active Problems Problem: PT [facility] Start Date: 10/21/23 Goal Start Date Expected End Date End Date PT [facility] - [facility] 1 10/21/23 11/04/23 -- Goal Details: Patient will perform supine<>sit Independent. Goal Start Date Expected End Date End Date PT [facility] - [facility] 2 10/21/23 11/04/23 -- Goal Details: Patient will perform bed<>chair transfer Modified Independent with ww. Goal Start Date Expected End Date End Date PT [facility] - [facility] 3 10/21/23 11/04/23 -- Goal Details: Patient will ambulate 350 feet Modified Independent with wheeled walker. Goal Start Date Expected End Date End Date PT [facility] - [facility] 4 10/21/23 11/04/23 -- Goal Details: Patient will ambulate up/down 1 step Modified Independent as needed to enter and exithome. Education: Patient has been educated on the role of PT, safety , precautions, mobility training, and home exercise program. Education completed via explanation, teach back, and demonstration. Patient verbalized understanding and demonstrated understanding E CONSULTANT * Nida Starr, FLAT [employer] ELEMENT MAKER - 10/25/2023 3:01 PM CST Physical Therapy 10/25/23 1501 PT Last Visit Session Type Treatment PT Received On 10/25/23 Safe Environment Arm band checked;Patient found in supine;Session completed bedside;Gait belt utilized for all out of bed mobility Subjective Agreeable to Therapy Additional Pertinent History per eval: 53 y/o M presents for surgical intervention on 10/14/23 from [facility]. Pt is s/p CABG x 3 (SVG-PDA, SVG-OM, BRICE-LAD) and mechanical AVR on 10/[address] Valero. Pt has history of ESRD on PD, CAD s/p PCI, MA, and DVT on chronic anticoagulation, Type 1 [...] End Date End Date PT G - [facility] 3 10/21/23 11/04/23 -- Goal Details: Patient will ambulate 350 feet Modified Independent with wheeled walker. Goal Start Date Expected End Date End Date PT [facility] - [facility] 4 10/21/23 11/04/23 -- Goal Details: Patient will ambulate up/down 1 step Modified Independent as needed to enter and exithome. Cosigned by Gustavo Swan, PT at 10/25/2023 4:45 PM STORE CONSULTANT E CONSULTANT E CONSULTANT * Guerline Rodriguez PA - 10/25/2023 2:13 [...] 1 View - Portable - in AM [[id number]] Collected: 10/25/23 1143 Order Status: Completed Updated: [...] discharge Plan reviewed with LESLY Larose 10/25/2023 E CONSULTANT * Nusrat Us RPh - 10/25/2023 10:39 [...] with another 1.5 mg dose and reassess. E CONSULTANT * Sophia Peoples COTA - 10/25/2023 9:43 [...] Vitals post activity BP 129/70, HR 63, [id number] Safe Environment End of Therapy Session Safe [...] Suzie Aiken OT at 10/25/2023 11:49 AM STORE CONSULTANT E CONSULTANT E CONSULTANT * Emiliana Dickson NP - 10/25/2023 9:27 [...] No focal deficits ASSESSMENT/PLAN: CAD - prior MA with multiple PCI - C showed multivessel [...] management per primary/nephrology team Emiliana Dickson NP [facility] 10/25/2023 9:28 AM Cosigned by Dilip Cohen MD at 10/25/2023 9:55 AM STORE CONSULTANT E CONSULTANT E CONSULTANT Associated attestation - Dilip Cohen MD - 10/25/2023 9:55 AM STORE CONSULTANT Patient seen at the bedside Is continuing to recover Still has some edema Continue anticoagulation for both the Afib for the on X valve Total time taken was 15 minute * Nida Starr, FLAT [employer] ELEMENT MAKER - 10/24/2023 11:46 AM CST Physical Therapy 10/24/23 1146 PT Last Visit Session Type Treatment PT Received On 10/24/23 Safe Environment Arm band checked;Patient found sitting at edge of bed;Session completed bedside;Gait belt utilized for all out of bed mobility Subjective Agreeable to Therapy Additional Pertinent History per eval: 53 y/o M presents for surgical intervention on 10/14/23 from [facility]. Pt is s/p CABG x 3 (SVG-PDA, SVG-OM, BRICE-LAD) and mechanical AVR on 10/[address] Valero. Pt has history of ESRD on PD, CAD s/p PCI, MA, and DVT on chronic anticoagulation, Type 1 [...] (from Physical Therapy) Active Problems Problem: PT [facility] Start Date: 10/21/23 Goal Start Date Expected End Date End Date PT [facility] 1 10/21/23 11/04/23 -- Goal Details: Patient will perform supine<>sit Independent. Goal Start Date Expected End Date End Date PT [facility] - [facility] 2 10/21/23 11/04/23 -- Goal Details: Patient will perform bed<>chair transfer Modified Independent with ww. Goal Start Date Expected End Date End Date PT [facility] - [facility] 3 10/21/23 11/04/23 -- Goal Details: Patient will ambulate 350 feet Modified Independent with wheeled walker. Goal Start Date Expected End Date End Date PT [facility] - [facility] 4 10/21/23 11/04/23 -- Goal Details: Patient will ambulate up/down 1 step Modified Independent as needed to enter and exithome. Cosigned by Gina Mason DPT at 10/24/2023 3:12 PM STORE CONSULTANT E CONSULTANT E CONSULTANT * Fernandez Carranza MD - 10/24/2023 10:56 AM CST Images from the original note were not included. Nephrology Juvenal Garvin . - 1970 Primary : Aditya Correa MD History and interval events: 53-year-old gentleman with history of type 1 diabetes mellitus on insulin pump, CHF, CAD, ESRD on peritoneal dialysis initially presented to [facility] in [facility] on October 09 for symptoms of general [...] a cardiology consultation which lead to a [facility]. Results were notable for severe CAD [...] PO4 binder with meals Fernandez Carranza MD [facility]: MD Chula Domínguez, MD Renny Flood PA Derek Larson, MD FASN Rose Mattli, NP Rohan Devanpalli, MD Candace Shirley, ROBERTO [address] [place], [place] [address] [phone] - Office [phone] - Fax E CONSULTANT * Nona Alcala PA - 10/24/2023 10:15 [...] discharge Patient discussed with LESLY Vallecillo 10/24/2023 E CONSULTANT * Nusrat Us RPh - 10/24/2023 9:49 [...] setting (nutrition). Warfarin dose today: 1.5 mg E CONSULTANT * Salena Rene NP - 10/24/2023 9:26 AM CST Cardiology Daily Progress - [facility] SUBJECTIVE: Mr. Garvin is resting in [...] No focal deficits ASSESSMENT/PLAN: CAD - prior MA with multiple PCI - LHC showed multivessel [...] water restriction with hyponatremia Salena Rene NP [facility] 10/24/2023 9:26 AM E CONSULTANT * Wyatt Rodriguez EP-C - 10/24/2023 8:08 AM CST Inpatient Cardiac Rehab Education Patient Information Patient Name: Juvenal Garvin Jr. : 1970 Room/Bed: [place] [id number] Insurance: [employer] + IDPA Progress Note Assistant Distribution Manager: ROSA Silva Date: 10/24/2023 Referring Diagnosis for Cardiac Rehab - s/p CABG x 3, AVR Education Provided Explained my role as a Cardiac Rehab Navigator (CRN). Provided Cardiac Rehab education to patient. Family was (not) present. Patient was provided with Cardiac Rehab education folder as well as a [facility] Heart Education booklet. Risk Factors: HTN, HLD, [...] fats)and exercise. Advised patient to consult their restaurant area manager, nurse, and/or physician if they have any questions about their diet/nutrition. Cardiac Rehab: Gave patient options of facilities for Outpatient Cardiac Rehab (OCR) in their community. Explained OCR program. Patient expressed knowledge towards local OCR program - patient prefers [facility] I anticipate no barriers for patient to [...] working towards eventually trying to reach the [employer] recommendations in regards to exercise: [...] when it would be appropriate to call [facility] office, go to the ER, or call 911. Insurance Coverage: Briefly explained general insurance coverage for OCR, but assured patient that OCR facility will usually call insurance and inform patient of more of an approximate coverage. Post-Discharge: Explained process between discharge from hospital, and getting set up in an OCR program - follow upwith [facility] [facility], CRN follow up calls, OCR program contact. Conclusion Patient seems likely to participate in OCR. Reassured patient of importance and health care provider support of OCR. Patient verbalized understanding of education, and all questions were answered to the best of my ability. Will complete order for OCR to be sent to [facility]. Thank you for allowing us to customer marketing assistant in the care of this patient, please don't hesitate to contact the Cardiac Rehab Navigator office with any questions: [phone]. E CONSULTANT * Fernandez Carranza MD - 10/23/2023 5:30 PM CST Images from the original note were not included. Nephrology uJvenal Garvin Jr. - 1970 Primary : Aditya Correa MD History and interval events: 53-year-old gentleman with history of type 1 diabetes mellitus on insulin pump, CHF, CAD, ESRD on peritoneal dialysis initially presented to [facility] in [facility] on October 09 for symptoms of general [...] PO4 binder with meals Fernandez Carranza MD [facility]: MD Chula Domínguez, MD Renny Flood PA Derek Larson, MD FASN Rose Mattli, NP Rohan Devanpalli, MD Candace Shirley, NP [address] [place], [place] [address] [phone] - Office [phone] - Fax E CONSULTANT * Nona Alcala PA - 10/23/2023 3:04 [...] discharge Patient discussed with LESLY Vallecillo 10/23/2023 E CONSULTANT * Gustavo Swan, PT - 10/23/2023 10:42 [...] presents for surgical intervention on 10/14/23 from [facility]. Pt is s/p CABG x 3 (SVG-PDA, SVG-OM, BRICE-LAD) and mechanical AVR on 10/[address] Valero. Pt has history of ESRD on PD, CAD s/p PCI, MA, and DVT on chronic anticoagulation, Type 1 [...] (from Physical Therapy) Active Problems Problem: PT [facility] Start Date: 10/21/23 Goal Start Date Expected End Date End Date PT [facility] - [facility] 1 10/21/23 11/04/23 -- Goal Details: Patient will perform supine<>sit Independent. Goal Start Date Expected End Date End Date PT [facility] - [facility] 2 10/21/23 11/04/23 -- Goal Details: Patient will perform bed<>chair transfer Modified Independent with ww. Goal Start Date Expected End Date End Date PT [facility] - [facility] 3 10/21/23 11/04/23 -- Goal Details: Patient will ambulate 350 feet Modified Independent with wheeled walker. Goal Start Date Expected End Date End Date PT [facility] - [facility] 4 10/21/23 11/04/23 -- Goal Details: Patient will ambulate up/down 1 step Modified Independent as needed to enter and exithome. Education: Patient has been educated on the role of PT, safety , precautions, mobility training, stairs, and home exercise program. Education completed via explanation, teach back, and demonstration.Patient verbalized understanding, demonstrated understanding, and needs ongoing reinforcement E CONSULTANT * Nusrat Us RPh - 10/23/2023 9:40 [...] the previous starting dose of 3 mg. E CONSULTANT * Nida Starr PTA - 10/23/2023 8:10 AM CST Physical Therapy 10/23/23 0810 PT Last Visit Session Type Treatment PT Received On 10/23/23 PT Missed Visit Reason Procedure/testing/appointment (Pt is currently on PD - nursing will notify when pt is finished.) E CONSULTANT * Saulo Kimball COTA - 10/23/2023 7:10 [...] Suzie Aiken OT at 10/23/2023 9:51 AM STORE CONSULTANT E CONSULTANT E CONSULTANT * Bartolo Solorio MD - 10/23/2023 6:38 AM CST Cardiology Inpatient Progress Note [facility] SUBJECTIVE: Pt had no [...] cyanosis or clubbing. ASSESSMENT/PLAN: CAD - prior MA with multiple PCI - C showed multivessel [...] wafarin with mechanical valve Bartolo Solorio MD, [facility], [facility] 10/23/2023 6:38 AM E CONSULTANT * Ron Martinez MD - 10/22/2023 8:57 PM CST Images from the original note were not included. Nephrology Juvenal Garvin Jr. - 1970 Primary : Aditya Correa MD History and interval events: 53-year-old gentleman with history of type 1 diabetes mellitus on insulin pump, CHF, CAD, ESRD on peritoneal dialysis initially presented to [facility] in [facility] on October 09 for symptoms of general [...] make some urine. S[facility]P [facility] Warfarin started for history of [...] regimen Start CORRINE weekly Ron Martinez MD [facility]: MD Chula Domínguez PA Graeme Mindel, MD Justin Krafft, PA Derek Larson, MD FASN Rose Mattli, NP Rohan Devanpalli, MD Candace Shirley, NP [address] [place] [address] [phone] - Office [phone] - Fax E CONSULTANT * Yolanda Campos PA - 10/22/2023 5:09 [...] prophylaxis Patient discussed with LESLY Danielle 10/22/2023 E CONSULTANT * Makayla Diallo [facility] - 10/22/2023 9:06 AM CST Warfarin monitoring [...] following significant increase yesterday Makayla Diallo, PharmD [employer] 10/22/23 9:06 AM E CONSULTANT * Bartolo Solorio MD - 10/22/2023 6:43 AM CST Cardiology Inpatient Progress Note [facility] SUBJECTIVE: Pt had no [...] cyanosis or clubbing. ASSESSMENT/PLAN: CAD - prior MA with multiple PCI - [facility] showed multivessel disease - LVEF dropped [...] wafarin with mechanical valve Bartolo Solorio MD, [facility], [facility] 10/22/2023 6:43 AM E CONSULTANT * Yolanda Campos PA - 10/21/2023 4:19 [...] prophylaxis Patient discussed with LESLY Danielle 10/21/2023 E CONSULTANT E CONSULTANT * Gina Mason DPT - 10/21/2023 9:05 AM CST Physical Therapy 10/21/23 09 General Chart Reviewed Yes Session Type Evaluation PT Received On 10/21/23 Safe Environment Arm band checked;Patient found in supine;Gait belt utilized for all out of bed mobility Subjective Agreeable to Therapy Additional Pertinent History 53 y/o M presents for surgical intervention on 10/14/23 from [facility]. Pt is s/p CABG x 3 (SVG-PDA, SVG-OM, BRICE-LAD) and mechanical AVR on 10/[address] Valero. 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 Goal Start Date Expected End Date End Date PT [facility] - [facility] 2 10/21/23 11/04/23 -- Goal Details: Patient will perform bed<>chair transfer Modified Independent with ww. Goal Start Date Expected End Date End Date PT [facility] - [facility] 3 10/21/23 11/04/23 -- Goal Details: Patient will ambulate 350 feet Modified Independent with wheeled walker. Goal Start Date Expected End Date End Date PT [facility] - [facility] 4 10/21/23 11/04/23 -- Goal Details: Patient will ambulate up/down 1 step Modified Independent as needed to enter and exithome. E CONSULTANT * Ron Martinez MD - 10/21/2023 8:48 AM CST Images from the original note were not included. Nephrology Juvenal Michael Pilo . - 1970 Primary : Aditya Correa MD History and interval events: 53-year-old gentleman with history of type 1 diabetes mellitus on insulin pump, CHF, CAD, ESRD on peritoneal dialysis initially presented to [facility] in [facility] on October 09 for symptoms of general [...] regimen Start CORRINE weekly Ron Martinez MD [facility]: MD Chula Domínguez PA Graeme Mindel, MD Justin Krafft, PA Derek Larson, MD FASN Rose Mattli, NP Rohan Devanpalli, MD Candace Shirley, NP [address] [place], [place] [address] [phone] - Office [phone] - Fax E CONSULTANT * Bartolo Solorio MD - 10/21/2023 8:08 AM CST Cardiology Inpatient Progress Note [facility] SUBJECTIVE: Pt had no [...] cyanosis or clubbing. ASSESSMENT/PLAN: CAD - prior MA with multiple PCI - [facility] showed multivessel disease - LVEF dropped [...] wafarin with mechanical valve Bartolo Solorio MD, [facility], [facility] 10/21/2023 8:08 AM E CONSULTANT * Dominique Fuentes RRT - 10/21/2023 12:29 AM CST 10/20/232246 NPPV Information NPPV Mode CPAP NPPV Status Refused NPPV Type V-60 NPPV ID L RT Therapist Assist Charges RT Therapist Assist NPPV 1 Encouraged patient to have his CPAP unit brought in since intolerable of ours. E CONSULTANT * Carly Spencer RD - 10/20/2023 3:27 PM CST Nutrition Follow-up Progress Note Encounter Date: 10/20/23 3:30 PM Nutrition Progress Summary: Patient is a 53 y.o. male. Admit Dx: CAD in [place] artery [I25.10]. Admitted on 10/13/2023. Pt s/p CABG/AVR 10/17/23. PMH includes Type I DM, ESRD on PD. Pt reports he is tolerating his meals and drinking the Nepro supplement. Increased protein intake encouraged. Pt new on Coumadin. Educated pt on Coumadin/diet interaction. Pt is familiar with his diabetic renal diet and plans to improve his adherence to diet. Metal Bumper consult noted. Pt with good understanding of [...] Renal Diet effective now Question Answer Comment ([facility]) Diet type Restricted Diabetic: Consistent Carbohydrate Renal: [...] of Weight Used for Estimated Protein : [place] Protein Needs Based on g/k.4 Total Protein Estimated Needs (gm): 105.42 Kcal/kg Type of Weight Used for Estimated Kcals: [place] Kcal/k Total Kcal/kg Estimated Needs : 2259 [...] High protein intake. Carly Spencer RD, LD E CONSULTANT * Saulo Kimball COTA - 10/20/2023 2:40 [...] assistance (Moderate assist santa/doff B socks with kitchen steward and sock aid, Minimal assist santa/doff sweatpants with kitchen steward) Transfer 1 Trials/Comments 1 Minimal assist sit [...] Stephanie Goodman OT at 10/21/2023 2:07 PM STORE CONSULTANT E CONSULTANT E CONSULTANT * Byron Olvera, ROBERTO - 10/20/2023 12:45 PM CSTAssociated Order(s): Critical Care Post-Procedure Diagnose(s): 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[place] artery of [place] heart with stable angina pectoris (HCC) Images from the original note were not included. [facility] CVR Daily Progress Note- Patient: Juvenal Garvin Jr. : 1970 Age: 53 y.o. male Admitting Physician: Jaqueline Valero MD Waterworks Operator: Kirsten Burns MD Shift: [facility] CVR AM Interval History: NEON Admitted to the hospital on 10/13/2023 11:18 PM for CAD in [place] artery [I25.10] Hospital Course: (10/17/23) s/p CABG [...] 10/20/2359 10/20/23 07 - 10/21/23 0659 Shift [id number] 24 Hour Total [id number] [id number] 24 Hour Total INTAKE P.O. 360 360 [...] s/p mechanical AVR Post CPB LEIA on [employer] 5 with LVEF 40-50%, normal RV. (Told during report) no note in place. Arrived on [employer] 5, NE 0.05 with low filling pressures and AAI 90. Post op bleeding requiring multiple transfusions. Bleeding from CT slowed overnight but oozing at lines and drain sites. 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 On Eliquis at home. Was on Heparin drip pre op. Arrived from [place] AAI at 90 with reported bradycardia in PCU while on BB SB 50-60s. [employer]UC[employer]ING weaned off overnight and EPW to VVI [...] off Insulin drip prior to transfer to [facility]. Insulin pump not working when he presented [...] by: Byron Olvera NP CRITICAL CARE: Team: [facility] CT Shift: AM Level of Billing: Subsequent [...] plan with the patient's team and other medical/government operations consultant staff. This time was in addition to and separate from care provided by other practitioners on this day of service. Cosigned by Kirsten Burns MD at 10/29/2023 10:56 PM CDT E CONSULTANT * Nusrat Us RPh - 10/20/2023 12:06 [...] increase as much as it did today. E CONSULTANT * Bartolo Solorio MD - 10/20/2023 9:18 AM CST Cardiology Daily Progress - [facility] SUBJECTIVE: Mr. Garvin is resting comfortably [...] tablet 1,000 mg 1,000 mg oral Q6H [facility] aspirin chewable tablet 81 mg 81 [...] 0.9% (premix) solution 1,000 mg 1,000 mg [id number] PRN 1,000 mg at 10/18/23 0032 Carrier [...] No focal deficits ASSESSMENT/PLAN: CAD - prior MA with multiple PCI - [facility] showed multivessel disease - LVEF dropped [...] fibrillation (HR in 60s) Salena Rene NP [facility] 10/20/2023 9:18 AM Pt evaluated with TOPPIECE CHOPPER. He is doing well clinically with planned transfer from the ICU today. Afib rates are well-controlled (currently in the 60s) with plan detailed above. E CONSULTANT E CONSULTANT * Chula Valera PA - 10/20/2023 6:43 AM CST Images from the original note were not included. Nephrology Juvenal Garvin Jr. - 1970 Primary : Aditya Correa MD History and interval events: 53-year-old gentleman with history of type 1 diabetes mellitus on insulin pump, CHF, CAD, ESRD on peritoneal dialysis initially presented to [facility] in [facility] on October 09 for symptoms of general [...] Continue active and nutritional vitamin-D LESLY Ortiz [facility]: MD Chula Domínguez PA Graeme Mindel, MD Justin Krafft, PA Derek Larson, MD FASN Rose Mattli, NP Rohan Devanpalli, MD Candace Shirley, NP [address] [place], [place] [address] [phone] - Office [phone] - Fax E CONSULTANT E CONSULTANT * Eliana Márquez, PT - 10/19/2023 2:25 PM CST Physical Therapy Cancellation 10/19/23 1425 PT Last Visit Session Type Other (comment) PT Received On 10/19/23 Subjective Other Subjective Comment Per RN, Pt. is too fatigued to participate in therapy, will attempt evaluation 10/19. PT Missed Visit Reason MD/RN Hold;Asleep E CONSULTANT * Chula Valera PA - 10/19/2023 12:42 PM CST Images from the original note were not included. Nephrology Juvenalfabi Garvin . - 1970 Primary : Aditya Correa MD History and interval events: 53-year-old gentleman with history of type 1 diabetes mellitus on insulin pump, CHF, CAD, ESRD on peritoneal dialysis initially presented to [facility] in [facility] on October 09 for symptoms of general [...] vitamin-D Resume Phoslo with meals LESLY Ortiz [facility]: MD Chula Domínguez PA Graeme Mindel, MD Justin Krafft, PA Derek Larson, MD FASN Rose Mattli, NP Rohan Devanpalli, MD Candace Shirley, ROBERTO [address] [place], [place] [address] [phone] - Office [phone] - Fax E CONSULTANT E CONSULTANT * Reyes Odom - 10/19/2023 11:49 AM CST Occupational Therapy Evaluation 10/19/23 1035 General Chart Reviewed Yes Session Type Evaluation OT Received On 10/19/23 Safe Environment Arm band checked;Patient found in supine Subjective Agreeable to Therapy Subjective Comment I'm so cold and tired. Additional Pertinent History 53 y/o M presents for surgical intervention on 10/14/23 from [facility]. Pt is s/p CABG x 3 (SVG-PDA, SVG-OM, BRICE-LAD) and mechanical AVR on 10/[address] Valero. Pt has history of ESRD on PD, CAD s/p PCI, MA, and DVT on chronic anticoagulation, Type 1 [...] mobility at baseline. 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 Grooming Grooming: Where assessed Chair Grooming: Level of assistance Minimum Assist (Pt exhibiting functionally weak fisheries director strength and fine motor skills with BUEs. [...] Suzie Aiken OT at 10/19/2023 11:50 AM STORE CONSULTANT E CONSULTANT E CONSULTANT * Felipe Robledo DO - 10/19/2023 8:09 [...] to chair today progressing Felipe Robledo DO, [facility] 10/19/2023 8:09 AM E CONSULTANT * Dawna Castellanos NP - 10/19/2023 6:57 AM CSTAssociated Order(s): Critical Care Post-Procedure Diagnose(s): CAD in [place] artery Images from the original note were not included. [facility] Daily Progress Note- Patient: Juvenal Garvin Jr. : 1970 Age: 53 y.o. 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 Valero Temp: [36.3 ??C (97.4 [...] 0659 10/19/23 07 - 10/20/23 0659 Shift 1451-4020 3768-9841 24 Hour Total 5661-8308 5505-4917 24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 ([facility]) ([facility]), GERD (gastroesophageal reflux disease), Hyperlipidemia, Hypertension, Sleep apnea, and SOB (shortnessof breath). He has no past medical history of Motion sickness or PONV (postoperative nausea and vomiting). 53-year-old gentleman with history of type 1 diabetes mellitus on insulin pump, CHF, CAD, ESRD on peritoneal dialysis initially presented to [facility] in [facility] on October 09 for symptoms of general [...] disease) Chest pain Diabetes mellitus ([facility]) Diabetes mellitus type I ([facility]) Dialysis patient ([facility]) ([facility]) ESRD on dialysis ([facility]) ([facility]) GERD (gastroesophageal reflux disease) Hyperlipidemia Hypertension Sleep [...] See HPI Assessment/Plan: Principal Problem: CAD in [place] artery CAD -Left heart catheterization done on [...] Expect 2 midnight admission Vinay Pratt DO E CONSULTANT E CONSULTANT documented in this encounter Procedure Notes * Gamal Fox NP - 10/18/2023 6:49 PM CSTAssociated Order(s): Critical Care Post-Procedure Diagnose(s): CAD in [place] artery Day time events ASA Low dose Heparin Warfarin DC D5LR Continue PD Phoslo restart Home PPI AAI 80 DIRECTOR OF EDUCATION AND TRAINING to 4 --->3 DC PAC/cordis Vaso weaned off Consult endo Nausea---alfredo renee Hemodynamic Review HR AAI @ 80, SBP 120-130, MAP 71-87, RAP 7-12 Impression and Plan for Overnight Problems: BEN Place on nasal CPAP @ HS, prior nausea/ vomiting, avoiding full face to reduce risk of aspiration Hypertension SBP goal < 130, DIRECTOR OF EDUCATION AND TRAINING @ 3 mcg, weaning to 2 mcg w/ plans to wean q6h for Scv02 >65 PONV Given haldol during day for nausea/ vomiting, scopolamine patch added at change of shift AM labs reviewed/Updates-> Tolerating cpap, on pd cycler, hypertensive, DIRECTOR OF EDUCATION AND TRAINING weaned off, will change from AAI pacing if remainshypertensive. Assessment and plan has been reviewed with CT Surgery & ICU attending on 10/18/23. Gamal Fox NP This note may have been dictated with voice-recognition software, tax preparer so tax preparer errors may be present. NOTICE: The above [...] by: Gamal Fox NP CRITICAL CARE: Team: [facility] [address] Shift: PM Level of Billing: Critical [...] plan with the ICU team and other medical/government operations consultant staff, making frequent assessments and decisions [...] Kirsten Burns MD at 10/19/2023 11:50 AM STORE CONSULTANT E CONSULTANT E CONSULTANT * Gamal Fox NP - 10/17/2023 6:42 PM CSTAssociated Order(s): Critical Care Post-Procedure Diagnose(s): CAD in [place] artery Physical exam: intubated, sedated, perrl A paced, signals doppled to BLE Orally intubated, Lungs diminished throughout NPO, abdomen obese, soft, absent bowel sounds, OGT to LIWS R leg w/ SVG site PENNIE, wound vac to sternum R rad AL, RIJ PAC/QLC Day time events Keep intubated and sedated tonight Ca+ DDAVP Keep DIRECTOR OF EDUCATION AND TRAINING 1 PRBC, 2 FFP Plan for PD [...] may have been dictated with voice-recognition software, tax preparer so tax preparer errors may be present. NOTICE: The above [...] by: Gamal Fox NP CRITICAL CARE: Team: [facility] CT Shift: PM Level of Billing: Critical [...] plan with the ICU team and other medical/government operations consultant staff, making frequent assessments and decisions [...] Kirsten Burns MD at 10/18/2023 9:16 AM STORE CONSULTANT E CONSULTANT E CONSULTANT documented in this encounter Consult Notes * Loraine Medina RN - 10/23/2023 12:00 PM CST Juvenal Garvin Jr. [id number] Jaqueline Valero MD Pre-Education Assessment Units of [...] Name: Juvenal Garvin Jr. : 1970 Room/Bed: [place] [address] Patient has had diabetes for NUMEROUS [...] Value Date HGBA1C 8.1 (H) 10/16/2023 Pump Retail Leader: OMNIPOD Insulin Brand: NOVOLIN Does patient have supplies with them?: YES Bolus Wizard On?: YES INSULIN PUMP SETTINGS Total Daily Basal (TDB): 54 Basal Rates: 0000: 3.0 0800: 1.5 2000: 3.0 Insulin to Carb Ratio: 1:9 Sensitivity: 25 Target: 120 Active Insulin Time (AIT): 4 HOURS Thank you for this consult, Loraine Medina RN, Sales Administration Manager 10/23/2023 12:44 PM E CONSULTANT * Loraine Medina RN - 10/20/2023 10:45 AM CSTAssociated Order(s): IP CONSULT TO TOLL OPERATOR Juvenal Garvin Jr. [id number] [place] [id number] Jaqueline Valero MD Pre-Education Assessment Units of [...] concerns at this time. Loraine Medina RN, Sales Administration Manager 10/20/2023 11:27 AM E CONSULTANT * Augustin Bethea MD - 10/18/2023 10:51 [...] ketoacidosis, elevated cardiac enzymes. Further evaluation with [facility] revealed multivessel coronary artery disease. Patient transferred to [facility] for CABG. Patient underwent CABG x 3, mechanical AVR . Endocrine diabetes management. Hemoglobin A1c noted to be 8.1% 10/14, Patient has an insulin pump at home, not review his setting as the pump not available bedside. Patient continues to be confused and could not provide any history From endocrinology note in the past at [facility] 2021: BASAL RATE TOTAL BASAL DAILY DOSE: [...] PUMP: Continue Omnipod 5 insulin pump with Vivint G6 CGM at home settings: TIME BASAL [...] high Assessment /Plan Principal Problem: CAD in [place] artery 1. Uncontrolled type 1 diabetes, A1c [...] don't hesitate to call. Augustin Bethea MD [facility] [email or web address] Office phone: [phone] Office fax: [phone] E CONSULTANT E CONSULTANT * Fernandez Carranza MD - 10/14/2023 3:27 PM CSTAssociated Order(s): IP CONSULT TO NEPHROLOGY Images from the original note were not included. Nephrology Juvenal Garvin Jr. - 1970 Primary : Aditya Correa MD History and interval events: 53-year-old gentleman with history of type 1 diabetes mellitus on insulin pump, CHF, CAD, ESRD on peritoneal dialysis initially presented to [facility] in [facility] on October 09 for symptoms of general [...] him to hemodialysis perioperatively Fernandez Carranza MD [facility] Consultants: MD Chula Domínguez PA Graeme Mindel, MD Justin Krafft, PA Derek Larson, MD FASN Rose Mattli, NP Rohan Devanpalli, MD Candace Shirley, ROBERTO [address] [place], [place] [address] [phone] - Office [phone] - Fax E CONSULTANT E CONSULTANT * Guerline Rodriguez PA - 10/14/2023 2:10 PM CSTAssociated Order(s): IP CONSULT TO CARDIOTHORACIC SURGERY Cardiothoracic Surgery Consultation Patient Name: Juvenal Garvin Jr. Admit Date: 10/13/2023 Admitting Provider: Julio Lopez DO Chief Complaint Multivessel coronary artery disease, aortic valve stenosis History of Present Illness Juvenal Garvin is a 53-year-old male who has been transferred to [facility] for consideration of coronary artery bypass grafting and aortic valve replacement. His past medical history includes severe CAD with previous PCI, paroxysmal atrial fibrillation, type 1 diabetes mellitus, ESRD on peritoneal dialysis, hypertension, hyperlipidemia, and sleep apnea. He presented to [facility] in [place], [place] on 10/09/23 complaining of fatigue, malaise, [...] the catheterization. He has been transferred to [facility] for consideration of coronary artery bypass and aortic valve replacement. He had been receiving Eliquis and Plavix up until transfer to [facility]. Since arrival here he denies any additional chest pain episodes. His glucose levels continue to fluctuate but have reasonably controlled today. Past Medical History: Diagnosis Date CAD (coronary artery disease) Chest pain Diabetes mellitus (HCC) Diabetes mellitus type I (HCC) Dialysis patient ([facility]) (HCC) ESRD on dialysis ([facility]) ([facility]) GERD (gastroesophageal reflux disease) Hyperlipidemia Hypertension Sleep [...] Jaqueline Valero MD at 10/15/2023 10:55 AM STORE CONSULTANT E CONSULTANT E CONSULTANT E CONSULTANT E CONSULTANT Associated attestation - Jaqueline Valero MD - 10/15/2023 10:55 AM STORE CONSULTANT I have seen and examined the patient, reviewed the electronic medical record, personally reviewed the patient's cardiac catheterization, and agree with the attached history and physical. In brief, he is a 53-year-old man with a history of end-stage renal disease on peritoneal dialysis,myocardial infarction, multiple prior coronary stenting procedures, and DVT who presented to [facility] with progressive exertional shortness breath, chest pain, and hyperglycemia. Repeat cardiac catheterization there revealed progressive coronary artery disease, which is now severe in all 3main coronary arteries. His left ventricular systolic function was abnormal and an echocardiogram there revealed significant aortic valve stenosis. And severe left ventricular systolic dysfunction. He was transferred to [facility] for further workup and treatment. ASSESSMENT: 53-year-old [...] for Monday. Jaqueline Valero MD Cardiothoracic Surgery [facility] * Pradeep Reeves, ROBERTO - 10/14/2023 12:13 PM CSTAssociated Order(s): IP CONSULT TO CARDIOLOGY Cardiology Consult - [facility] Reason For Consult: CAD Requesting Provider: Frank Cody MD SUBJECTIVE: Chief Complaint/History of Present Illness: Mr. Garvin is a 53 y/o man with hx of hypertension, dyslipidemia, diabetes, CAD s/p multiple prior PCI, ESRD, paroxysmal atrial fibrillation and DVT and BEN. The patient presented to [facility] with a complaint of hyperglycemia. He has [...] on his echo. He was transferred to [facility] for CTS evaluation. He is on a [...] (HCC) Diabetes mellitus type I ([facility]) Dialysis patient ([facility]) ([facility]) ESRD on dialysis ([facility]) ([facility]) GERD (gastroesophageal reflux disease) Hyperlipidemia Hypertension Sleep [...] PUMP: Continue Omnipod 5 insulin pump with Movercom G6 CGM at home settings: TIME BASAL [...] and affect appropriate -Cardiac Cath (10/13/23 at [facility]): LM no dz. LCX 99% ostial stenosis and 90% stenosis atOM/LCX bifurcation. LAD mild diffuse disease in the ostium with a 90% stenosis at the origin of a very small high diagonal branch and otherwise mild LAD disease. RCA 99% mid stenosis. -Echo (10/11/23 at [facility]): LVEF 20-25%, moderate ASSESSMENT/PLAN: 1. CAD: The [...] please don't hesitate to call. SHAMIKA Donald [facility] 10/14/2023 12:13 PM Cosigned by Felipe Robledo DO at 10/15/2023 10:13 AM STORE CONSULTANT E CONSULTANT E CONSULTANT E CONSULTANT E CONSULTANT documented in this encounter Nursing Notes * [...] (Comments): blister-popped Wound Status Healing Site Assessment Horse Pasture;Moist Marie-wound Assessment Fragile;Flaky;Dry;Erythematous Margins Defined edges Closure Unapproximated Drainage Amount Small Drainage Description Serous Drainage Odor No odor Dressing Status New Dressing Silver foam;Gauze rolled Interventions Cleansed Recommendations: marble installer supervisor to complete Polymem dressing as ordered. Pressure injury prevention measures dn moisture management in place. Education: Plan of Care discussed with: Patient, marble installer supervisor Questions answered: YES Wound/Ostomy will follow patient: [...] high Assessment /Plan Principal Problem: CAD in [place] artery 1. Uncontrolled type 1 diabetes, A1c [...] out of town till 11/14. Pl call instructor of education provider. Once ready per primary team can [...] don't hesitate to call. Augustin Bethea MD [facility] [email or web address] Office phone: [phone] Office fax: [phone] * Plan of Care - Jessica Rodriguez [...] PUMP: Continue Omnipod 5 insulin pump with Vivint G6 CGM at home settings: TIME BASAL [...] high Assessment /Plan Principal Problem: CAD in [place] artery 1. Uncontrolled type 1 diabetes, A1c [...] don't hesitate to call. Augustin Bethea MD [email or web address] Office phone: [phone] Office fax: [phone] * Post-Procedure Note - Basilia John RN [...] THIS IS FOR THE INSULIN PUMP: Continue Sapphire EnergyipLVenture Group 5 insulin pump with Vivint G6 CGM at home settings: TIME BASAL [...] high Assessment /Plan Principal Problem: CAD in [place] artery 1. Uncontrolled type 1 diabetes, A1c [...] don't hesitate to call. Augustin Bethea MD [facility] [email or web address] Office phone: [phone] Office fax: [phone] * Post-Procedure Note - Basilia John RN [...] 10/30/2023 2:42 PM CDT Received notification from [facility] acute rehab concentrator operator, Carey Phillips , patients [employer] Medicare insurance denied request for authorization for inpatient acute rehab . Peer to peer offered at [phone] opt 4.peer to peer needs to be requested by 1200 noon tomorrow, 10/30. Reference no. [id number]. Member ID no. [id number]. Guerline GRACE notified of above. * Consults, [...] high Assessment /Plan Principal Problem: CAD in [place] artery 1. Uncontrolled type 1 diabetes, A1c [...] don't hesitate to call. Augustin Bethea MD [facility] [email or web address] Office phone: [phone] Office fax: [phone] * Post-Procedure Note - Sugar Swanson RN [...] Afebrile. Room air. NSR. Pain treated with Broadwater. ABX started for patients right leg.Lower dopplers [...] Room air. NSR. Patient pain treated with Broadwater. Left herman dressing changed x1 due to leaking. E CONSULTANT * Plan of Care - Roel West LCSW - 10/28/2023 3:40 PM CST Front End Loader Operator covering and followed up with request to learn if patient was approved for inpatient rehabilitation/insurance authorization status. SW inquired with Dr. Mya Frederick and awaiting notification. Intake Coordinators are not on-site and not customary to receive notification from insurance on weekend. E CONSULTANT * Consults, Subsequent - Augustin Bethea MD - 10/28/2023 2:50 PM STORE CONSULTANT Endocrine Note Reason for Consult: type 1 [...] THIS IS FOR THE INSULIN PUMP: Continue Sapphire EnergyipLVenture Group 5 insulin pump with Vivint G6 CGM at home settings: TIME BASAL [...] high Assessment /Plan Principal Problem: CAD in [place] artery 1. Uncontrolled type 1 diabetes, A1c [...] don't hesitate to call. Augustin Bethea MD [facility] [email or web address] Office phone: [phone] Office fax: [phone] E CONSULTANT E CONSULTANT * Post-Procedure Note - Basilia John RN - 10/28/2023 7:14 AM STORE CONSULTANT Peritoneal Dialysis Treatment Summary: Juvenal Garvin . [...] well. Denied any c/o. PD drsg D&I E CONSULTANT * Consults, Subsequent - Augustin Bethea MD - 10/27/2023 5:47 PM STORE CONSULTANT Endocrine Note Reason for Consult: type 1 [...] THIS IS FOR THE INSULIN PUMP: Continue Good Eggs 5 insulin pump with Vivint G6 CGM at home settings: TIME BASAL [...] high Assessment /Plan Principal Problem: CAD in [place] artery 1. Uncontrolled type 1 diabetes, A1c [...] don't hesitate to call. Augustin Bethea MD [facility] [email or web address] Office phone: [phone] Office fax: [phone] E CONSULTANT * Plan of Care - Genie Benjamin RN - 10/27/2023 12:55 PM CST [facility] inpatient acute industrial rehabilitation consultant pursuing insurance authorization for rehab when patient medically stable for discharge to rehab. E CONSULTANT * Post-Procedure Note - Radha Mercado RN [...] Tolerated tx without issues. Effluent clear yellow. E CONSULTANT * Consults, Subsequent - Augustin Bethea MD - 10/26/2023 6:25 PM STORE CONSULTANT Endocrine Note Reason for Consult: type 1 [...] PUMP: Continue Omnipod 5 insulin pump with Movercom G6 CGM at home settings: TIME BASAL [...] high Assessment /Plan Principal Problem: CAD in [place] artery 1. Uncontrolled type 1 diabetes, A1c [...] don't hesitate to call. Augustin Bethea MD [facility] [email or web address] Office phone: [phone] Office fax: [phone] E CONSULTANT * Plan of Care - Manda Solorzano RN - 10/26/2023 12:06 PM CST Per , pt has been accepted to [facility] (auth pending). Pt will be removed from [facility] schedule and no services provided at this time. E CONSULTANT * Plan of Care - Jacquelin Veliz MSW - 10/26/2023 10:43 AM CST SHUTTLELESS LOOM WEAVER received message from Michelle with [facility] and they are able to accept Pt. They will start insurance authorization as PA feels that Pt is close to discharge. SHUTTLELESS LOOM WEAVER met with Pt at bedside [facility] will be [facility] insurance authorization for him. Pt states that he is agreeable to discharging to acute rehab when ready for discharge. E CONSULTANT * Post-Procedure Note - Basilia John RN - 10/26/2023 7:30 AM STORE CONSULTANT Peritoneal Dialysis Treatment Summary: Juvenal Garvin Jr. [...] well. Denied any c/o. PD drsg D&I E CONSULTANT * Plan of Care - Cyndi Persaud RN - 10/25/2023 4:14 PM CST Goals: Clinical Goals for the Shift: VSS. Afebrile. Room air. NSR. Monitor heart rate and rhythm. Manage pain. Manage heparin drip. Monitor PTTs. PD. Walk x3. Ensure safety and comfort. Summary: VSS. Afebrile. Room air. NSR. Pain treated with a one time dose of Broadwater. Most recent PTT is 72. Heparin drip at 12.7units/kg/hr. E CONSULTANT * Consults, Subsequent - Augustin Bethea MD - 10/25/2023 11:14 AM STORE CONSULTANT Endocrine Note Reason for Consult: type 1 [...] PUMP: Continue Omnipod 5 insulin pump with Vivint G6 CGM at home settings: TIME BASAL [...] high Assessment /Plan Principal Problem: CAD in [place] artery 1. Uncontrolled type 1 diabetes, A1c [...] don't hesitate to call. Augustin Bethea MD [facility] [email or web address] Office phone: [phone] Office fax: [phone] E CONSULTANT * Post-Procedure Note - Radha Mercado, LUAN [...] Comments: Tolerated tx well. Effluent clear, yellow. E CONSULTANT * Plan of Care - Carey Alas [...] 20 SpO2: [96 %-98 %] 96 % E CONSULTANT * Consults, Subsequent - Augustin Bethea MD - 10/24/2023 11:07 AM STORE CONSULTANT Endocrine Note Reason for Consult: type 1 [...] PUMP: Continue Omnipod 5 insulin pump with Vivint G6 CGM at home settings: TIME BASAL [...] high Assessment /Plan Principal Problem: CAD in [place] artery 1. Uncontrolled type 1 diabetes, A1c [...] don't hesitate to call. Augustin Bethea MD [facility] [email or web address] Office phone: [phone] Office fax: [phone] E CONSULTANT * Post-Procedure Note - Radha Mercado RN [...] Tolerated tx without issues. Effluent clear yellow. E CONSULTANT * Plan of Care - Lucinda Mathews [...] during sleep periods will improve Outcome: Progressing E CONSULTANT E CONSULTANT E CONSULTANT * Plan of Care - Carey Alas [...] 20 SpO2: [95 %-99 %] 95 % E CONSULTANT * Plan of Care - Genie Benjamin RN - 10/23/2023 12:17 PM CST PT/OT recommending inpatient acute rehab at discharge. Informed patient of above. Patient declined rehab facility list and states he prefers [facility] inpatient acute rehab hospital. Referral sent. Response pending. E CONSULTANT * ECIN Note - Genie Benjamin RN [...] presents for surgical intervention on 10/14/23 from [facility]. Pt is s/p CABG x 3 (SVG-PDA, SVG-OM, BRICE-LAD) and mechanical AVR on 10/[address] Valero. Pt has history of ESRD on PD, CAD s/p PCI, MA, and DVT on chronic anticoagulation, Type 1 [...] and mobility at baseline. 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 -HK Grooming: Where assessed -- Chair -HK Grooming: Level of assistance -- Minimum Assist Pt exhibiting functionally weak fisheries director strength and fine motor skills with BUEs. [...] -- Moderate assist santa/doff B socks with kitchen steward and sock aid,Minimal assist santa/doff sweatpants with kitchen steward -KB -- Bed Mobility Comments 1 SBA [...] presents for surgical intervention on 10/14/23 from [facility]. Pt is s/p CABG x 3 (SVG-PDA, SVG-OM, BRICE-LAD) and mechanical AVR on 10/[address] Valero. 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 Pt is s/p CABG x 3 (SVG-PDA, SVG-OM, BRICE-LAD) and mechanical AVR on 10/[address] Valero. Pt has history of ESRD on PD, CAD s/p PCI, MA, and DVT on chronic anticoagulation, Type 1 [...] Initials Name Effective Dates SS Nida Starr, FLAT OPTICAL ELEMENT MAKER 06/30/22 - Eliana Joiner, PT 12/05/22 - Gustavo Olivas, PT 04/10/23 - PT Notes 10/21/2023 10:25 AM Progress Notes signed by Gina Mason DPT 10/23/2023 11:53 AM Progress Notes signed by Gustavo Swan, PT , HEDGE FUND PRINCIPAL Eval and Treat Last 72 Hours HEDGE [employer]D PRINCIPAL Evaluation No documentation. HEDGE [employer]D PRINCIPAL Treatment No documentation. Clinical Swallow Study No documentation. HEDGE FUND PRINCIPAL Notes Notes from 10/21/23 through 10/23/23 No notes of this type exist for this encounter. E CONSULTANT * Consults, Subsequent - Augustin Bethea MD - 10/23/2023 10:48 AM STORE CONSULTANT Endocrine Note Reason for Consult: type 1 [...] PUMP: Continue Omnipod 5 insulin pump with Movercom G6 CGM at home settings: TIME BASAL [...] high Assessment /Plan Principal Problem: CAD in [place] artery 1. Uncontrolled type 1 diabetes, A1c [...] don't hesitate to call. Augustin Bethea MD [email or web address] Office phone: [phone] Office fax: [phone] E CONSULTANT * Post-Procedure Note - Radha Mercado RN [...] Tolerated tx without issues. Effluent clear, yellow. E CONSULTANT * Plan of Care - Jessica Rodriguez [...] impaired skin integrity will decrease Outcome: Progressing E CONSULTANT * Post-Procedure Note - Rayna Be RN - 10/22/2023 12:03 PM STORE CONSULTANT Peritoneal Dialysis Treatment Summary: Juvenal Garvin Jr. [...] dwell time. Added dwell time 7 minutes. E CONSULTANT * Plan of Care - Hermes Savage [...] cough and deep breathing at this time. E CONSULTANT * Plan of Care - Jessica Rodriguez [...] impaired skin integrity will decrease Outcome: Progressing E CONSULTANT * Consults, Subsequent - Augustin Bethea MD - 10/21/2023 4:43 PM STORE CONSULTANT Endocrine Note Reason for Consult: type 1 [...] high Assessment /Plan Principal Problem: CAD in [place] artery 1. Uncontrolled type 1 diabetes, A1c [...] don't hesitate to call. Augustin Bethea MD [facility] [email or web address] Office phone: [phone] Office fax: [phone] E CONSULTANT * Plan of Care - Hermes Savage, [...] cough and deep breathing at this time. E CONSULTANT * Post-Procedure Note - Sugar Swanson RN [...] fibrin. Dr. Martinez notified of all findings. E CONSULTANT * Plan of Care - Dominique Fuentes RRT - 10/20/2023 8:19 PM CST Problem: Respiratory Goal: Achieves optimal ventilation and oxygenation Outcome: Progressing Positive Expiratory Pressure Therapy Patient educated on goals of PEP therapy. Will continue to monitor patient technique and encourage use of PEP device. Patient educated on effective cough and deep breathing at this time. E CONSULTANT * Plan of Care - Summer Pradhan [...] except when coughing. Tylenol given. Comfort/safety ensured. E CONSULTANT * Consults, Subsequent - Augustin Bethea MD - 10/20/2023 3:50 PM STORE CONSULTANT Endocrine Note Reason for Consult: type 1 [...] PUMP: Continue Omnipod 5 insulin pump with Vivint G6 CGM at home settings: TIME BASAL [...] high Assessment /Plan Principal Problem: CAD in [place] artery 1. Uncontrolled type 1 diabetes, A1c [...] don't hesitate to call. Augustin Bethea MD [facility] [email or web address] Office phone: [phone] Office fax: [phone] E CONSULTANT * Post-Procedure Note - Sugar Swanson RN [...] Dressing c/d/I. Clear yellow effluent with fibrin. E CONSULTANT * Plan of Care - Hermes Savage [...] to monitor sputum amount, color, and consistency. E CONSULTANT * Plan of Care - Campos Farmer [...] labs, titrate heparin to therapeutic, pain control E CONSULTANT * Consults, Subsequent - Augustin Bethea MD - 10/19/2023 7:08 PM STORE CONSULTANT Endocrine Note Reason for Consult: type 1 [...] PUMP: Continue Omnipod 5 insulin pump with Vivint G6 CGM at home settings: TIME BASAL [...] high Assessment /Plan Principal Problem: CAD in [place] artery 1. Uncontrolled type 1 diabetes, A1c [...] don't hesitate to call. Augustin Bethea MD [facility] [email or web address] Office phone: [phone] Office fax: [phone] E CONSULTANT * Plan of Care - Toña Saha, [...] protocol. Wean FiO2 to maintain SpO2 >92%. E CONSULTANT * Post-Procedure Note - Sugar Swanson RN [...] Clear yellow effluent with fibrin. MD notified. E CONSULTANT * Plan of Care - Ken Martell RRT - 10/18/2023 10:25 PM CST NPPV Patient is tolerating non-invasive ventilation well. Mask fits well with minimal leak. No skin break down noted. Will continue to monitor and titrate per MD order. E CONSULTANT * Provider Query - Dawna Castellanos NP - 10/18/2023 6:36 PM CST The documentation is unclear. Please clarify the 10/17 documentation of NSTEMI. (See Criteria Below). ___ Hx of NSTEMI (Greater than 28 days ago) _x__ Acute NSTEMI occurred at OSH and pt transferred to [facility] for continued care for NSTEMI ___ Other (Specify): Provider Response: Clinical Indicators/Treatment: - Per EPIC: Hx of NSTEMI in June 2022 - Transfer from OSH with CAD and - 10/17 PN: NSTEMI s/p CABG...During hospitalization found to have elevated Troponins prompted cardiology evaluation and LHC significant for multivessel CAD and subsequently also found aortic stenosis. - 10/18 PN : CAD.. Prior MA and multiple PCI.. the patient underwent cardiac cath that showed multivessel disease. - Labs/Notes from OSH not available - Treatment: CABG: References: Fourth Redfield Definition of Myocardial Infarction Myocardial Infarction Diagnosis of myocardial infarction requires: Elevated troponin blood test (troponin value above 99th percentile upper reference limit) AND at least one of the following: Symptoms of acute myocardial ischemia (Types 1-5 MA) Clinical evidence of ischemia, as evidenced in an EKG showing new ischemic changes (Type 1, Type 2,Type 3, or Type 4a MA) Development of pathological Q waves (Types 1-5 MA) Imaging evidence of new loss of viable myocardium or new regional wall motion abnormality in a pattern consistent with an ischemic etiology (Types 1-5 MA) Identification of a coronary thrombus by angiography including intracoronary imaging or by autopsy (Type 1 MA only) Angiographic findings consistent with procedural flow-limiting [...] Guidelines for Coding and Reporting, 2019 Fourth Redfield Definition of Myocardial Infarction, Scot Uriostegui, et al., Journal of French College of Cardiology 2018March 2018, http://www.onlinejacc.org/content/early//j.jacc ..1037?_ga=[id number] Fourth Redfield Definition Separates MA From Myocardial Injury, Rolly Freeman, [employer], April 15, 2018, [email or web address] Redfield definition of myocardial infarction, Joint ESC/ACCF/AHA/WHF Task [...] become part of the patient???s medical record. E CONSULTANT * Plan of Care - Renetta Keys [...] 2L NC. Pulls 1500 on IS. 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 Insulin gtt continues per orders. Appetite hindered due to nausea and some vomiting this afternoon. Zofran and haldol given. Pt states is better but doesn't want to eat at this time. Will continue to encourage increased activity, IS, Improved appetite, E CONSULTANT * Post-Procedure Note - Sugar Swanson RN [...] and intact and effluent clear and yellow. E CONSULTANT * Plan of Care - Ken Martell RRT - 10/18/2023 3:31 AM CST Mechanical Ventilation Patient is seen on full ventilator support. Patient is synchronous with the ventilator at the time.Will continue to monitor all pertinent lab data, chest radiographs and CT scans when available. Will titrate per MD order. E CONSULTANT * Op Note - Jaqueline Valero MD [...] mm OnX mechanical prosthesis, model #ONXANE, serial #[id number] ) 2. Coronary artery bypass grafting x [...] placement (25 cm) DATE OF PROCEDURE 10/17/2023 HEALTH SAFETY INSTRUCTOR CEZAR Bernstein ANESTHESIA General Endotracheal Anesthesia ANESTHESIOLOGIST [...] with continuous 6-0 Prolene suture. A retrograde photogrammetric surveyor was given, the patient was placed into [...] checked through the bypass grafts with a GeoVario Doppler flow probe and each was found [...] Physician) Aditya Correa MD (Primary Care Provider) E CONSULTANT * Brief Op Note - Jaqueline Valero MD - 10/17/2023 8:47 AM CST Operative Progress Note Surgical Team: Surgeons and Role: * Jaqueline Valero MD - Primary Anesthesiologist: Ayden Alan MD NARCOTICS DETECTIVE: Ravi Thacker CRNA Cyber Defense Incident Responder: Chang Stout CCP; Fransisco Ziegler CCP Entertainment Usher: Nini Gibbs RN Scrub: Yamilet Bolivar RN; Teresa Dillon ST RNFA: Jessica Frost RN; Carey Weber RN [employer] Usher: Dee Ibarra RN DATE OF SURGERY : 10/17/2023 Preoperative Diagnosis: Pre-op Diagnosis * Aortic valve stenosis, etiology of cardiac valve disease unspecified [I35.0] * Coronary arteriosclerosis in [place] artery [I25.10] Postoperative Diagnosis: Post-op Diagnosis * Aortic valve stenosis, etiology of cardiac valve disease unspecified [I35.0] * Coronary arteriosclerosis in [place] artery [I25.10] Procedure(s): Procedure(s) (LRB): CORONARY ARTERY [...] Implant Name Type Inv. Item Serial No. Retail Leader Lot No. LRB No. Used Action ON-X INTRNL Valve Coronary Aortic Mechanical On X 25mm ONXANE-25 - [id number] - [id number] ON-X INTRNL Valve Coronary Aortic Mechanical On X 25mm ONXANE-25 [id number] On-X Intrnl N/A 1 Implanted Blood/Blood Products Transfused: 1 unit platelets, 2 units FFP, 10 pack cryo, 3 units PRBC Complications: None Condition on Discharge from the operating room was stable Jaqueline Valero MD Date: 10/17/2023 Time: 12:59 PM No Resident involved on case E CONSULTANT * Post-Procedure Note - Zia Mahoney RN - 10/17/2023 3:38 AM STORE CONSULTANT Peritoneal Dialysis Treatment Summary: Juvenal Garvin JrSharath [...] well. Effluent yellow and clear. Dressing c/d/i. E CONSULTANT * Plan of Care - Lucinda Mathews, FANY - 10/16/2023 9:28 PM CST NPPV- Patient is tolerating non-invasive ventilation well. Mask fits well with minimal leak. No skin break down noted. Will continue to monitor and titrate per MD order. Problem: Obstructive Sleep Apnea (BEN) Goal: Patients ability to maintain adequate ventilation during sleep periods will improve Outcome: Progressing E CONSULTANT * Plan of Care - Yamilet Lopez [...] Understanding discharge needs will improve Outcome: Progressing E CONSULTANT * Initial Assessments - Genie Benjamin RN - 10/16/2023 10:46 AM STORE CONSULTANT PURNIMA Initial Assessment Interview Note Information Obtained [...] Medicare and IDPA Prescription Coverage: yes Pharmacy: [id number] - [place], [place] - [address] [place] [address] [place] [address] Primary Care Provider: Aditya Correa MD Prior to Admission: Functional Status: Minimal assist with ADLs Primary Caregiver: Self Support System: Children Home Care Services: No Outpatient Services: No Durable Medical Equipment: Cane (single prong) Living Arrangements: Children Type of Residence: Private residence Steps in home?: No steps inside or outside Medication management: Independent (10/13/23 9240) SDOH: Transportation: In the past 12 months, [...] a week How often do you attend synagogue or catholic services?: 1 to 4 times per year Do you belong to any clubs or organizations such as synagogue groups, unions, fraternal or athletic groups, or [...] Screening Potential discharge needs include: Home Health: correction (10/16/23 104) Dialysis: Dialysis History Start End Type Center Comments Peritoneal [facility] Dialysis Center Information [facility] Address: [facility] [address] [place] [address] Behavioral Health Services: Behavioral Health Services: No (10/16/231041) Patient expects to be Discharged to: Private residence, (10/16/231041) Additional Information: 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 Active with [facility] in [place], [place] under the care of Dr. Stephen. [...] Collaboration with patient, MD, direct care nurse, Front End Loader Operator, and other members of the health care team to assure needed interventions completed. 2. Return patient to optimal level of self-care post discharge. 3. Tractor Operator Battery will follow for Discharge Planning - interventions as needed 4. Anticipated level of care at discharge 5. Planned Discharge Disposition Genie Benjamin RN E CONSULTANT * Post-Procedure Note - Jackie Masters RN [...] & intact , Effluent clear & yellow E CONSULTANT * Plan of Care - Juanito Barrett RRT - 10/15/2023 9:43 PM CST Nocturnal CPAP Patient is tolerating non-invasive ventilation well. Mask fits well with minimal leak. No skin break down noted. Will continue to monitor and titrate per MD order.Oxygen Therapy Patient is being managed on oxygen titration protocol. Wean FiO2 to maintain SpO2 >92%. E CONSULTANT * Plan of Care - Janett Schulz [...] c/o chest pain, therapeutic on heparin infusion E CONSULTANT * Post-Procedure Note - Zia Mahoney RN - 10/15/2023 4:44 AM STORE CONSULTANT Peritoneal Dialysis Treatment Summary: Juvenal Garvin Jr. [...] well. Effluent yellow and clear. Dressing c/d/I. E CONSULTANT * Plan of Care - Juanito Barrett RRT - 10/14/2023 9:44 PM CST Nocturnal CPAP Patient is tolerating non-invasive ventilation well. Mask fits well with minimal leak. No skin break down noted. Will continue to monitor and titrate per MD order.Oxygen Therapy Patient is being managed on oxygen titration protocol. Wean FiO2 to maintain SpO2 >92%. E CONSULTANT * Plan of Care - Janett Schulz [...] pain, heparin gtt subtherapeutic, adjusted trinity MAR E CONSULTANT * Plan of Care - Ellie Zeng RN - 10/14/2023 1:55 AM CST Goals: Clinical Goals for the Shift: monitor vs tele labs and blood sugars, orientate to unit, promote comfort and safety, manage pain Summary: patient stable throughout shift with no complaints of pain. Blood sugars trending down, patient had RT set up CPAP for sleep. Patient NPO since 0000. E CONSULTANT E CONSULTANT documented in this encounter Plan of Treatment Pending Results Name Type Priority Associated Diagnoses Date /Time Renal function panel Lab Routine 09/22 1:06 AM STORE CONSULTANT Fibrinogen Lab Routine 10/18/2023 1:5 4 AM STORE CONSULTANT Protime-INR Lab Timed 10/25/2023 12 :33 AM STORE CONSULTANT aPTT Lab Routine 10/26/2023 2:2 9 AM STORE CONSULTANT aPTT Lab Routine 10/27/2023 2:3 0 AM STORE CONSULTANT TSH Lab Routine 10/27/2023 2:3 0 AM STORE CONSULTANT Scheduled Orders Name Type Priority Associated Diagnoses [...] Home Health Outpatient Referral Routine CAD in [place] artery 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[place] artery of [place] heart with stable angina pectoris ([facility]) ([facility]) Aortic stenosis, severe 1 Occurrences starting 10/20/2023 until 04/21/2024 Ambulatory referral to Cardiac Rehab Outpatient Referral Routine S/P CABG x 3 NSTEMI (non-ST elevated myocardial infarction) ([facility]) ([facility]) S/P AVR Expected: 11/07/2023 (Approximate), Expires: 10/23/2024 [...] PERITONEAL DIALYSIS (CCPD) Routine 10/29/2023 12:30 AM STORE CONSULTANT POCT GLUCOSE DEVICE Routine 10/28/2023 8:22 PM STORE CONSULTANT POCT GLUCOSE DEVICE Routine 10/28/2023 5:24 PM STORE CONSULTANT POCT GLUCOSE DEVICE Routine 10/28/2023 12:45 PM STORE CONSULTANT POCT GLUCOSE DEVICE Routine 10/28/2023 8:04 AM STORE CONSULTANT XR CHEST 1 VIEW IP Routine 10/28/2023 6:00 AM STORE CONSULTANT EGFR Routine 10/28/2023 12:34 AM STORE CONSULTANT APTT Routine 10/28/2023 12:34 AM STORE CONSULTANT PROTIME-INR Routine 10/28/2023 12:34 AM STORE CONSULTANT CBC WITHOUT DIFFERENTIAL Routine 10/28/2023 12:34 AM STORE CONSULTANT MAGNESIUM Routine 10/28/2023 12:34 AM STORE CONSULTANT RENAL FUNCTION PANEL Routine 10/28/2023 12:34 AM STORE CONSULTANT CONTINUOUS CYCLIC PERITONEAL DIALYSIS (CCPD) Routine 10/28/2023 12:30 AM STORE CONSULTANT POCT GLUCOSE DEVICE Routine 10/27/2023 10:01 PM STORE CONSULTANT POCT GLUCOSE DEVICE Routine 10/27/2023 5:48 PM STORE CONSULTANT CONTINUOUS CYCLIC PERITONEAL DIALYSIS (CCPD) Routine 10/27/2023 3:23 PM STORE CONSULTANT POCT GLUCOSE DEVICE Routine 10/27/2023 11:54 AM STORE CONSULTANT T4, FREE Routine 10/27/2023 11:02 AM STORE CONSULTANT POCT GLUCOSE DEVICE Routine 10/27/2023 8:28 AM STORE CONSULTANT XR CHEST 1 VIEW IP Routine 10/27/2023 6:14 AM STORE CONSULTANT OSMOLALITY, BLOOD Routine 10/27/2023 6:02 AM STORE CONSULTANT EGFR Routine 10/27/2023 2:30 AM STORE CONSULTANT APTT Routine 10/27/2023 2:30 AM STORE CONSULTANT PROTIME-INR Routine 10/27/2023 2:30 AM STORE CONSULTANT CBC WITHOUT DIFFERENTIAL Routine 10/27/2023 2:30 AM STORE CONSULTANT TSH Routine 10/27/2023 2:30 AM STORE CONSULTANT MAGNESIUM Routine 10/27/2023 2:30 AM STORE CONSULTANT RENAL FUNCTION PANEL Routine 10/27/2023 2:30 AM STORE CONSULTANT POCT GLUCOSE DEVICE Routine 10/26/2023 11:15 PM STORE CONSULTANT POCT GLUCOSE DEVICE Routine 10/26/2023 4:53 PM STORE CONSULTANT POCT GLUCOSE DEVICE Routine 10/26/2023 11:57 AM STORE CONSULTANT PEP THERAPY Routine 10/26/2023 8:00 AM STORE CONSULTANT POCT GLUCOSE DEVICE Routine 10/26/2023 8:00 AM STORE CONSULTANT XR CHEST 1 VIEW IP Routine 10/26/2023 5:09 AM STORE CONSULTANT EGFR Routine 10/26/2023 2:29 AM STORE CONSULTANT APTT Routine 10/26/2023 2:29 AM STORE CONSULTANT PROTIME-INR Routine 10/26/2023 2:29 AM STORE CONSULTANT CBC WITHOUT DIFFERENTIAL Routine 10/26/2023 2:29 AM STORE CONSULTANT MAGNESIUM Routine 10/26/2023 2:29 AM STORE CONSULTANT RENAL FUNCTION PANEL Routine 10/26/2023 2:29 AM STORE CONSULTANT APTT Timed 10/25/2023 9:15 PM STORE CONSULTANT POCT GLUCOSE DEVICE Routine 10/25/2023 9:14 PM STORE CONSULTANT POCT GLUCOSE DEVICE Routine 10/25/2023 4:51 PM STORE CONSULTANT APTT Timed 10/25/2023 2:48 PM STORE CONSULTANT POCT GLUCOSE DEVICE Routine 10/25/2023 11:15 AM STORE CONSULTANT POCT GLUCOSE DEVICE Routine 10/25/2023 9:49 AM STORE CONSULTANT POCT GLUCOSE DEVICE Routine 10/25/2023 7:36 AM STORE CONSULTANT XR CHEST 1 VIEW IP Routine 10/25/2023 6:52 AM STORE CONSULTANT APTT Routine 10/25/2023 6:48 AM STORE CONSULTANT POCT GLUCOSE DEVICE Routine 10/25/2023 4:23 AM STORE CONSULTANT EGFR Routine 10/25/2023 12:34 AM STORE CONSULTANT CBC WITHOUT DIFFERENTIAL Routine 10/25/2023 12:34 AM STORE CONSULTANT MAGNESIUM Routine 10/25/2023 12:34 AM STORE CONSULTANT RENAL FUNCTION PANEL Routine 10/25/2023 12:34 AM STORE CONSULTANT APTT Timed 10/25/2023 12:33 AM STORE CONSULTANT PROTIME-INR Timed 10/25/2023 12:33 AM STORE CONSULTANT CONTINUOUS CYCLIC PERITONEAL DIALYSIS (CCPD) Routine 10/25/2023 12:30 AM STORE CONSULTANT POCT GLUCOSE DEVICE Routine 10/24/2023 9:51 PM STORE CONSULTANT APTT STAT 10/24/2023 5:15 PM STORE CONSULTANT POCT GLUCOSE DEVICE Routine 10/24/2023 4:42 PM STORE CONSULTANT POCT GLUCOSE DEVICE Routine 10/24/2023 12:17 PM STORE CONSULTANT POCT GLUCOSE DEVICE Routine 10/24/2023 7:44 AM STORE CONSULTANT XR CHEST 1 VIEW IP Routine 10/24/2023 5:54 AM STORE CONSULTANT EGFR Routine 10/24/2023 1:03 AM STORE CONSULTANT PROTIME-INR Routine 10/24/2023 1:03 AM STORE CONSULTANT CBC WITHOUT DIFFERENTIAL Routine 10/24/2023 1:03 AM STORE CONSULTANT MAGNESIUM Routine 10/24/2023 1:03 AM STORE CONSULTANT RENAL FUNCTION PANEL Routine 10/24/2023 1:03 AM STORE CONSULTANT CONTINUOUS CYCLIC PERITONEAL DIALYSIS (CCPD) Routine 10/24/2023 12:30 AM STORE CONSULTANT POCT GLUCOSE DEVICE Routine 10/23/2023 11:14 PM STORE CONSULTANT POCT GLUCOSE DEVICE Routine 10/23/2023 10:43 PM STORE CONSULTANT PEP THERAPY Routine 10/23/2023 6:00 PM STORE CONSULTANT POCT GLUCOSE DEVICE Routine 10/23/2023 5:12 PM STORE CONSULTANT PEP THERAPY Routine 10/23/2023 1:00 PM STORE CONSULTANT POCT GLUCOSE DEVICE Routine 10/23/2023 12:08 PM STORE CONSULTANT PEP THERAPY Routine 10/23/2023 8:00 AM STORE CONSULTANT POCT GLUCOSE DEVICE Routine 10/23/2023 7:54 AM STORE CONSULTANT XR CHEST 1 VIEW IP Routine 10/23/2023 6:24 AM STORE CONSULTANT EGFR Routine 10/23/2023 1:53 AM STORE CONSULTANT PROTIME-INR Routine 10/23/2023 1:53 AM STORE CONSULTANT CBC WITHOUT DIFFERENTIAL Routine 10/23/2023 1:53 AM STORE CONSULTANT MAGNESIUM Routine 10/23/2023 1:53 AM STORE CONSULTANT RENAL FUNCTION PANEL Routine 10/23/2023 1:53 AM STORE CONSULTANT CONTINUOUS CYCLIC PERITONEAL DIALYSIS (CCPD) Routine 10/23/2023 12:30 AM STORE CONSULTANT POCT GLUCOSE DEVICE Routine 10/22/2023 11:55 PM STORE CONSULTANT PEP THERAPY Routine 10/22/2023 10:00 PM STORE CONSULTANT POCT GLUCOSE DEVICE Routine 10/22/2023 9:12 PM STORE CONSULTANT PEP THERAPY Routine 10/22/2023 6:00 PM STORE CONSULTANT POCT GLUCOSE DEVICE Routine 10/22/2023 5:22 PM STORE CONSULTANT PEP THERAPY Routine 10/22/2023 3:07 PM STORE CONSULTANT PEP THERAPY Routine 10/22/2023 3:07 PM STORE CONSULTANT PEP THERAPY Routine 10/22/2023 3:07 PM STORE CONSULTANT PEP THERAPY Routine 10/22/2023 3:07 PM STORE CONSULTANT POCT GLUCOSE DEVICE Routine 10/22/2023 12:49 PM STORE CONSULTANT POCT GLUCOSE DEVICE Routine 10/22/2023 8:12 AM STORE CONSULTANT XR CHEST 1 VIEW IP Routine 10/22/2023 6:38 AM STORE CONSULTANT EGFR Routine 10/22/2023 12:31 AM STORE CONSULTANT PROTIME-INR Routine 10/22/2023 12:31 AM STORE CONSULTANT CBC WITHOUT DIFFERENTIAL Routine 10/22/2023 12:31 AM STORE CONSULTANT MAGNESIUM Routine 10/22/2023 12:31 AM STORE CONSULTANT RENAL FUNCTION PANEL Routine 10/22/2023 12:31 AM STORE CONSULTANT CONTINUOUS CYCLIC PERITONEAL DIALYSIS (CCPD) Routine 10/22/2023 12:30 AM STORE CONSULTANT POCT GLUCOSE DEVICE Routine 10/21/2023 9:31 PM STORE CONSULTANT POCT GLUCOSE DEVICE Routine 10/21/2023 5:16 PM STORE CONSULTANT POCT GLUCOSE DEVICE Routine 10/21/2023 12:29 PM STORE CONSULTANT POCT GLUCOSE DEVICE Routine 10/21/2023 8:06 AM STORE CONSULTANT XR CHEST 1 VIEW IP Routine 10/21/2023 6:51 AM STORE CONSULTANT ECG 12-LEAD Routine 10/21/2023 4:39 AM STORE CONSULTANT EGFR Routine 10/21/2023 1:40 AM STORE CONSULTANT PROTIME-INR Routine 10/21/2023 1:40 AM STORE CONSULTANT CBC WITHOUT DIFFERENTIAL Routine 10/21/2023 1:40 AM STORE CONSULTANT MAGNESIUM Routine 10/21/2023 1:40 AM STORE CONSULTANT RENAL FUNCTION PANEL Routine 10/21/2023 1:40 AM STORE CONSULTANT CONTINUOUS CYCLIC PERITONEAL DIALYSIS (CCPD) Routine 10/21/2023 12:31 AM STORE CONSULTANT POCT GLUCOSE DEVICE Routine 10/20/2023 9:24 PM STORE CONSULTANT POCT GLUCOSE DEVICE Routine 10/20/2023 5:24 PM STORE CONSULTANT CONTINUOUS CYCLIC PERITONEAL DIALYSIS (CCPD) Routine 10/20/2023 3:51 PM STORE CONSULTANT CRITICAL CARE Routine 10/20/2023 12:45 PM STORE CONSULTANT 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[place] artery of [place] heart with stable angina pectoris (CMS/HCC) (HCC) POCT GLUCOSE DEVICE Routine 10/20/2023 11:47 AM STORE CONSULTANT POCT GLUCOSE DEVICE Routine 10/20/2023 10:09 AM STORE CONSULTANT POCT GLUCOSE DEVICE Routine 10/20/2023 9:15 AM STORE CONSULTANT POCT GLUCOSE DEVICE Routine 10/20/2023 7:23 AM STORE CONSULTANT XR CHEST 1 VIEW IP Routine 10/20/2023 6:37 AM STORE CONSULTANT POCT GLUCOSE DEVICE Routine 10/20/2023 6:12 AM STORE CONSULTANT POCT GLUCOSE DEVICE Routine 10/20/2023 3:57 AM STORE CONSULTANT OXYHEMOGLOBIN, CENTRAL VENOUS Timed 10/20/2023 3:22 AM STORE CONSULTANT APTT STAT 10/20/2023 3:22 AM STORE CONSULTANT POCT GLUCOSE DEVICE Routine 10/20/2023 3:21 AM STORE CONSULTANT POCT GLUCOSE DEVICE Routine 10/20/2023 2:10 AM STORE CONSULTANT POCT GLUCOSE DEVICE Routine 10/20/2023 12:57 AM STORE CONSULTANT OXYHEMOGLOBIN, CENTRAL VENOUS Routine 10/20/2023 12:21 AM STORE CONSULTANT EGFR Routine 10/20/2023 12:21 AM STORE CONSULTANT CALCIUM, IONIZED Routine 10/20/2023 12:21 AM STORE CONSULTANT PROTIME-INR Routine 10/20/2023 12:21 AM STORE CONSULTANT CBC WITHOUT DIFFERENTIAL Routine 10/20/2023 12:21 AM STORE CONSULTANT MAGNESIUM Routine 10/20/2023 12:21 AM STORE CONSULTANT RENAL FUNCTION PANEL Routine 10/20/2023 12:21 AM STORE CONSULTANT POCT GLUCOSE DEVICE Routine 10/20/2023 12:20 AM STORE CONSULTANT POCT GLUCOSE DEVICE Routine 10/19/2023 11:03 PM STORE CONSULTANT POCT GLUCOSE DEVICE Routine 10/19/2023 10:01 PM STORE CONSULTANT APTT STAT 10/19/2023 9:47 PM STORE CONSULTANT POCT GLUCOSE DEVICE Routine 10/19/2023 9:15 PM STORE CONSULTANT POCT GLUCOSE DEVICE Routine 10/19/2023 8:12 PM STORE CONSULTANT POCT GLUCOSE DEVICE Routine 10/19/2023 6:13 PM STORE CONSULTANT POCT GLUCOSE DEVICE Routine 10/19/2023 5:24 PM STORE CONSULTANT XR CHEST 1 VIEW ED Urgent/IP Urgent 10/19/2023 4:29 PM STORE CONSULTANT POCT GLUCOSE DEVICE Routine 10/19/2023 4:25 PM STORE CONSULTANT ECG 12-LEAD STAT 10/19/2023 3:21 PM STORE CONSULTANT XR KUB IP Routine 10/19/2023 2:49 PM STORE CONSULTANT APTT STAT 10/19/2023 2:44 PM STORE CONSULTANT LIPASE Routine 10/19/2023 2:44 PM STORE CONSULTANT AMYLASE Routine 10/19/2023 2:44 PM STORE CONSULTANT HEPATIC FUNCTION PANEL Routine 10/19/2023 2:44 PM STORE CONSULTANT POCT GLUCOSE DEVICE Routine 10/19/2023 2:40 PM STORE CONSULTANT POCT GLUCOSE DEVICE Routine 10/19/2023 12:25 PM STORE CONSULTANT POCT GLUCOSE DEVICE Routine 10/19/2023 11:12 AM STORE CONSULTANT POCT GLUCOSE DEVICE Routine 10/19/2023 10:54 AM STORE CONSULTANT POCT GLUCOSE DEVICE Routine 10/19/2023 9:04 AM STORE CONSULTANT OXYHEMOGLOBIN, CENTRAL VENOUS STAT 10/19/2023 8:58 AM STORE CONSULTANT APTT STAT 10/19/2023 8:58 AM STORE CONSULTANT POCT GLUCOSE DEVICE Routine 10/19/2023 7:19 AM STORE CONSULTANT OXYHEMOGLOBIN, CENTRAL VENOUS STAT 10/19/2023 7:09 AM STORE CONSULTANT LACTATE STAT 10/19/2023 7:09 AM STORE CONSULTANT CRITICAL CARE Routine 10/19/2023 6:57 AM STORE CONSULTANT CAD in [place] artery POCT GLUCOSE DEVICE Routine 10/19/2023 6:57 AM STORE CONSULTANT XR CHEST 1 VIEW IP Routine 10/19/2023 6:27 AM STORE CONSULTANT POCT GLUCOSE DEVICE Routine 10/19/2023 6:06 AM STORE CONSULTANT POCT GLUCOSE DEVICE Routine 10/19/2023 5:10 AM STORE CONSULTANT APTT STAT 10/19/2023 4:14 AM STORE CONSULTANT POCT GLUCOSE DEVICE Routine 10/19/2023 4:03 AM STORE CONSULTANT POCT GLUCOSE DEVICE Routine 10/19/2023 2:56 AM STORE CONSULTANT OXYHEMOGLOBIN, CENTRAL VENOUS Routine 10/19/2023 2:11 AM STORE CONSULTANT EGFR Routine 10/19/2023 2:11 AM STORE CONSULTANT CALCIUM, IONIZED Routine 10/19/2023 2:11 AM STORE CONSULTANT PROTIME-INR Routine 10/19/2023 2:11 AM STORE CONSULTANT CBC WITHOUT DIFFERENTIAL Routine 10/19/2023 2:11 AM STORE CONSULTANT MAGNESIUM Routine 10/19/2023 2:11 AM STORE CONSULTANT BLOOD GAS, ARTERIAL Routine 10/19/2023 2:11 AM STORE CONSULTANT RENAL FUNCTION PANEL Routine 10/19/2023 2:11 AM STORE CONSULTANT POCT GLUCOSE DEVICE Routine 10/19/2023 2:07 AM STORE CONSULTANT CONTINUOUS CYCLIC PERITONEAL DIALYSIS (CCPD) Routine 10/19/2023 12:31 AM STORE CONSULTANT POCT GLUCOSE DEVICE Routine 10/19/2023 12:01 AM STORE CONSULTANT POCT GLUCOSE DEVICE Routine 10/18/2023 11:03 PM STORE CONSULTANT POCT GLUCOSE DEVICE Routine 10/18/2023 10:11 PM STORE CONSULTANT APTT STAT 10/18/2023 9:21 PM STORE CONSULTANT POCT GLUCOSE DEVICE Routine 10/18/2023 9:19 PM STORE CONSULTANT POCT GLUCOSE DEVICE Routine 10/18/2023 8:37 PM STORE CONSULTANT BLOOD GAS, ARTERIAL STAT 10/18/2023 8:34 PM STORE CONSULTANT CRITICAL CARE Routine 10/18/2023 6:49 PM STORE CONSULTANT CAD in [place] artery POCT GLUCOSE DEVICE Routine 10/18/2023 6:38 PM STORE CONSULTANT POCT GLUCOSE DEVICE Routine 10/18/2023 5:45 PM STORE CONSULTANT XR KUB IP Routine 10/18/2023 5:42 PM STORE CONSULTANT POCT GLUCOSE DEVICE Routine 10/18/2023 4:47 PM STORE CONSULTANT APTT Timed 10/18/2023 2:55 PM STORE CONSULTANT POCT GLUCOSE DEVICE Routine 10/18/2023 2:52 PM STORE CONSULTANT POCT GLUCOSE DEVICE Routine 10/18/2023 1:53 PM STORE CONSULTANT POCT GLUCOSE DEVICE Routine 10/18/2023 12:48 PM STORE CONSULTANT POCT GLUCOSE DEVICE Routine 10/18/2023 12:00 PM STORE CONSULTANT POCT GLUCOSE DEVICE Routine 10/18/2023 10:57 AM STORE CONSULTANT POCT GLUCOSE DEVICE Routine 10/18/2023 9:52 AM STORE CONSULTANT POCT GLUCOSE DEVICE Routine 10/18/2023 8:46 AM STORE CONSULTANT POCT GLUCOSE DEVICE Routine 10/18/2023 7:58 AM STORE CONSULTANT CRITICAL CARE Routine 10/18/2023 7:27 AM STORE CONSULTANT CAD in [place] artery POCT GLUCOSE DEVICE Routine 10/18/2023 7:02 AM STORE CONSULTANT POCT GLUCOSE DEVICE Routine 10/18/2023 6:04 AM STORE CONSULTANT XR CHEST 1 VIEW IP Routine 10/18/2023 5:38 AM STORE CONSULTANT POCT GLUCOSE DEVICE Routine 10/18/2023 5:04 AM STORE CONSULTANT POCT GLUCOSE DEVICE Routine 10/18/2023 4:03 AM STORE CONSULTANT POCT GLUCOSE DEVICE Routine 10/18/2023 3:04 AM STORE CONSULTANT POCT GLUCOSE DEVICE Routine 10/18/2023 1:57 AM STORE CONSULTANT EGFR Routine 10/18/2023 1:54 AM STORE CONSULTANT CALCIUM, IONIZED Routine 10/18/2023 1:54 AM STORE CONSULTANT PROTIME-INR Routine 10/18/2023 1:54 AM STORE CONSULTANT FIBRINOGEN Routine 10/18/2023 1:54 AM STORE CONSULTANT CBC WITHOUT DIFFERENTIAL Routine 10/18/2023 1:54 AM STORE CONSULTANT MAGNESIUM Routine 10/18/2023 1:54 AM STORE CONSULTANT BLOOD GAS, ARTERIAL STAT 10/18/2023 1:54 AM STORE CONSULTANT RENAL FUNCTION PANEL Routine 10/18/2023 1:54 AM STORE CONSULTANT POCT GLUCOSE DEVICE Routine 10/18/2023 12:57 AM STORE CONSULTANT CONTINUOUS CYCLIC PERITONEAL DIALYSIS (CCPD) Routine 10/18/2023 12:31 AM STORE CONSULTANT POCT GLUCOSE DEVICE Routine 10/18/2023 12:04 AM STORE CONSULTANT POCT GLUCOSE DEVICE Routine 10/17/2023 11:00 PM STORE CONSULTANT BLOOD GAS, ARTERIAL STAT 10/17/2023 10:56 PM STORE CONSULTANT LACTATE STAT 10/17/2023 10:55 PM STORE CONSULTANT DIFFERENTIAL AUTO STAT 10/17/2023 10:55 PM STORE CONSULTANT CALCIUM, IONIZED STAT 10/17/2023 10:55 PM STORE CONSULTANT CBC WITH AUTO DIFFERENTIAL STAT 10/17/2023 10:55 PM STORE CONSULTANT POCT GLUCOSE DEVICE Routine 10/17/2023 10:19 PM STORE CONSULTANT POCT GLUCOSE DEVICE Routine 10/17/2023 9:00 PM STORE CONSULTANT POCT GLUCOSE DEVICE Routine 10/17/2023 8:07 PM STORE CONSULTANT POCT GLUCOSE DEVICE Routine 10/17/2023 7:18 PM STORE CONSULTANT TRANSFUSE RED BLOOD CELLS Timed 10/17/2023 7:13 PM STORE CONSULTANT CRITICAL CARE Routine 10/17/2023 6:42 PM STORE CONSULTANT CAD in [place] artery PREPARE RBC STAT 10/17/2023 6:34 PM STORE CONSULTANT POTASSIUM LEVEL STAT 10/17/2023 6:14 PM STORE CONSULTANT APTT STAT 10/17/2023 6:12 PM STORE CONSULTANT PROTIME-INR STAT 10/17/2023 6:12 PM STORE CONSULTANT FIBRINOGEN STAT 10/17/2023 6:12 PM STORE CONSULTANT CBC WITHOUT DIFFERENTIAL STAT 10/17/2023 6:12 PM STORE CONSULTANT BLOOD GAS, ARTERIAL STAT 10/17/2023 6:12 PM STORE CONSULTANT POCT GLUCOSE DEVICE Routine 10/17/2023 6:11 PM STORE CONSULTANT TRANSFUSE PLASMA Timed 10/17/2023 5:25 PM STORE CONSULTANT PREPARE PLASMA STAT 10/17/2023 5:09 PM STORE CONSULTANT POCT GLUCOSE DEVICE Routine 10/17/2023 4:50 PM STORE CONSULTANT APTT STAT 10/17/2023 4:32 PM STORE CONSULTANT PROTIME-INR STAT 10/17/2023 4:32 PM STORE CONSULTANT FIBRINOGEN STAT 10/17/2023 4:32 PM STORE CONSULTANT CBC WITHOUT DIFFERENTIAL Routine 10/17/2023 4:32 PM STORE CONSULTANT BLOOD GAS, ARTERIAL STAT 10/17/2023 4:32 PM STORE CONSULTANT POCT GLUCOSE DEVICE Routine 10/17/2023 3:51 PM STORE CONSULTANT TRANSFUSE PLASMA Timed 10/17/2023 3:43 PM STORE CONSULTANT TRANSFUSE RED BLOOD CELLS Timed 10/17/2023 3:38 PM STORE CONSULTANT PREPARE PLASMA STAT 10/17/2023 3:32 PM STORE CONSULTANT PREPARE RBC STAT 10/17/2023 3:32 PM STORE CONSULTANT POCT GLUCOSE DEVICE Routine 10/17/2023 2:34 PM STORE CONSULTANT XR CHEST 1 VIEW ED Urgent/IP Urgent 10/17/2023 1:49 PM STORE CONSULTANT CRITICAL CARE Routine 10/17/2023 1:44 PM STORE CONSULTANT LACTATE STAT 10/17/2023 1:27 PM STORE CONSULTANT EGFR STAT 10/17/2023 1:27 PM STORE CONSULTANT CALCIUM, IONIZED STAT 10/17/2023 1:27 PM STORE CONSULTANT APTT STAT 10/17/2023 1:27 PM STORE CONSULTANT PROTIME-INR STAT 10/17/2023 1:27 PM STORE CONSULTANT FIBRINOGEN STAT 10/17/2023 1:27 PM STORE CONSULTANT CBC WITHOUT DIFFERENTIAL STAT 10/17/2023 1:27 PM STORE CONSULTANT PHOSPHORUS STAT 10/17/2023 1:27 PM STORE CONSULTANT MAGNESIUM STAT 10/17/2023 1:27 PM STORE CONSULTANT BLOOD GAS, ARTERIAL STAT 10/17/2023 1:27 PM STORE CONSULTANT BASIC METABOLIC PANEL STAT 10/17/2023 1:27 PM STORE CONSULTANT POCT GLUCOSE DEVICE Routine 10/17/2023 1:25 PM STORE CONSULTANT POCT ACTIVATED CLOTTING TIME, HIGH RANGE Routine 10/17/2023 12:26 PM STORE CONSULTANT POC BLOOD GAS AND CHEMISTRIES, ARTERIAL Routine 10/17/2023 12:26 PM STORE CONSULTANT TRANSFUSE PLATELETS Timed 10/17/2023 12:24 PM STORE CONSULTANT PREPARE RBC STAT 10/17/2023 12:11 PM STORE CONSULTANT TRANSFUSE RED BLOOD CELLS Timed 10/17/2023 12:09 PM STORE CONSULTANT TRANSFUSE CRYOPRECIPITATE (POOLED UNITS) Timed 10/17/2023 12:05 PM STORE CONSULTANT TRANSFUSE CRYOPRECIPITATE (POOLED UNITS) Timed 10/17/2023 12:04 PM STORE CONSULTANT TRANSFUSE PLASMA Timed 10/17/2023 12:03 PM STORE CONSULTANT TRANSFUSE PLASMA Timed 10/17/2023 12:03 PM STORE CONSULTANT POC BLOOD GAS AND CHEMISTRIES, ARTERIAL Routine 10/17/2023 11:51 AM STORE CONSULTANT POCT ACTIVATED CLOTTING TIME, HIGH RANGE Routine 10/17/2023 11:50 AM STORE CONSULTANT POCT ACTIVATED CLOTTING TIME, HIGH RANGE Routine 10/17/2023 11:22 AM STORE CONSULTANT POC BLOOD GAS AND CHEMISTRIES, ARTERIAL Routine 10/17/2023 11:20 AM STORE CONSULTANT POCT ACTIVATED CLOTTING TIME, HIGH RANGE Routine 10/17/2023 11:05 AM STORE CONSULTANT POCT ACTIVATED CLOTTING TIME, HIGH RANGE Routine 10/17/2023 10:53 AM STORE CONSULTANT POCT ACTIVATED CL[place]ING TIME, HIGH RANGE Routine 10/17/2023 10:38 AM STORE CONSULTANT POC BLOOD GAS AND CHEMISTRIES, ARTERIAL Routine 10/17/2023 10:38 AM STORE CONSULTANT POCT ACTIVATED CLOTTING TIME, HIGH RANGE Routine 10/17/2023 10:24 AM STORE CONSULTANT POC BLOOD GAS AND CHEMISTRIES, VENOUS Routine 10/17/2023 10:21 AM STORE CONSULTANT POCT ACTIVATED CLOTTING TIME, HIGH RANGE Routine 10/17/2023 10:12 AM STORE CONSULTANT POC BLOOD GAS AND CHEMISTRIES, ARTERIAL Routine 10/17/2023 10:11 AM STORE CONSULTANT POC BLOOD GAS AND CHEMISTRIES, ARTERIAL Routine 10/17/2023 9:47 AM STORE CONSULTANT POCT ACTIVATED CLOTTING TIME, HIGH RANGE Routine 10/17/2023 9:44 AM STORE CONSULTANT PREPARE PLATELETS STAT 10/17/2023 9:12 AM STORE CONSULTANT PREPARE PLASMA STAT 10/17/2023 9:12 AM STORE CONSULTANT PREPARE CRYOPRECIPITATE (POOLED UNITS) STAT 10/17/2023 9:12 AM STORE CONSULTANT POCT ACTIVATED CLOTTING TIME, HIGH RANGE Routine 10/17/2023 8:19 AM STORE CONSULTANT REPLACEMENT AORTIC VALVE 10/17/2023 8:03 AM STORE CONSULTANT Aortic valve stenosis, etiology of cardiac valve disease unspecified Coronary arteriosclerosis in [place] artery CORONARY ARTERY BYPASS GRAFT 10/17/2023 8:03 AM STORE CONSULTANT Aortic valve stenosis, etiology of cardiac valve disease unspecified Coronary arteriosclerosis in [place] artery POCT GLUCOSE DEVICE Routine 10/17/2023 7:47 AM STORE CONSULTANT POCT GLUCOSE DEVICE Routine 10/17/2023 5:50 AM STORE CONSULTANT US CAROTIDS DUPLEX BILATERAL IP Routine 10/17/2023 5:10 AM STORE CONSULTANT POCT GLUCOSE DEVICE Routine 10/17/2023 2:29 AM STORE CONSULTANT POCT GLUCOSE DEVICE Routine 10/17/2023 12:51 AM STORE CONSULTANT CONTINUOUS CYCLIC PERITONEAL DIALYSIS (CCPD) Routine 10/17/2023 12:31 AM STORE CONSULTANT DIFFERENTIAL AUTO Routine 10/17/2023 12:29 AM STORE CONSULTANT CBC WITH AUTO DIFFERENTIAL Routine 10/17/2023 12:29 AM STORE CONSULTANT APTT Routine 10/17/2023 12:29 AM STORE CONSULTANT TYPE AND SCREEN STAT 10/16/2023 7:51 PM STORE CONSULTANT POCT GLUCOSE DEVICE Routine 10/16/2023 7:49 PM STORE CONSULTANT POCT GLUCOSE DEVICE Routine 10/16/2023 5:35 PM STORE CONSULTANT TRANSTHORACIC ECHO (TTE) COMPLETE W DOPPLER/CF W CONTRAST Routine 10/16/2023 4:47 PM STORE CONSULTANT APTT Routine 10/16/2023 3:50 PM STORE CONSULTANT LIPID PANEL Routine 10/16/2023 3:44 PM STORE CONSULTANT CONTINUOUS CYCLIC PERITONEAL DIALYSIS (CCPD) Routine 10/16/2023 3:33 PM STORE CONSULTANT HEMOGLOBIN A1C Routine 10/16/2023 3:27 PM STORE CONSULTANT XR CHEST PA LATERAL 2 VIEWS ED Urgent/IP Urgent 10/16/2023 3:12 PM STORE CONSULTANT ECG 12-LEAD Routine 10/16/2023 2:17 PM STORE CONSULTANT PREPARE RBC STAT 10/16/2023 2:04 PM STORE CONSULTANT POCT GLUCOSE DEVICE Routine 10/16/2023 12:22 PM STORE CONSULTANT POCT GLUCOSE DEVICE Routine 10/16/2023 8:11 AM STORE CONSULTANT POCT GLUCOSE DEVICE Routine 10/16/2023 4:48 AM STORE CONSULTANT POCT GLUCOSE DEVICE Routine 10/16/2023 12:37 AM STORE CONSULTANT DIFFERENTIAL AUTO Routine 10/16/2023 12:31 AM STORE CONSULTANT CBC WITH AUTO DIFFERENTIAL Routine 10/16/2023 12:31 AM STORE CONSULTANT APTT Routine 10/16/2023 12:31 AM STORE CONSULTANT B CHECK SAMPLE STAT 10/16/2023 12:27 AM STORE CONSULTANT POCT GLUCOSE DEVICE Routine 10/15/2023 11:20 PM STORE CONSULTANT POCT GLUCOSE DEVICE Routine 10/15/2023 11:01 PM STORE CONSULTANT POCT GLUCOSE DEVICE Routine 10/15/2023 10:45 PM STORE CONSULTANT POCT GLUCOSE DEVICE Routine 10/15/2023 10:26 PM STORE CONSULTANT POCT GLUCOSE DEVICE Routine 10/15/2023 8:12 PM STORE CONSULTANT POCT GLUCOSE DEVICE Routine 10/15/2023 5:10 PM STORE CONSULTANT POCT GLUCOSE DEVICE Routine 10/15/2023 12:13 PM STORE CONSULTANT APTT Routine 10/15/2023 11:[address] CHEST WO CONTRAST IP Routine 10/15/2023 11:00 AM STORE CONSULTANT POCT GLUCOSE DEVICE Routine 10/15/2023 7:56 AM STORE CONSULTANT POCT GLUCOSE DEVICE Routine 10/15/2023 5:34 AM STORE CONSULTANT POCT GLUCOSE DEVICE Routine 10/15/2023 4:35 AM STORE CONSULTANT APTT STAT 10/15/2023 4:27 AM STORE CONSULTANT POCT GLUCOSE DEVICE Routine 10/15/2023 1:30 AM STORE CONSULTANT EGFR Routine 10/15/2023 1:06 AM STORE CONSULTANT DIFFERENTIAL AUTO Routine 10/15/2023 1:06 AM STORE CONSULTANT IRON PROFILE W/ IBC Routine 10/15/2023 1:06 AM STORE CONSULTANT CBC WITH AUTO DIFFERENTIAL Routine 10/15/2023 1:06 AM STORE CONSULTANT APTT Routine 10/15/2023 1:06 AM STORE CONSULTANT FERRITIN Routine 10/15/2023 1:06 AM STORE CONSULTANT RENAL FUNCTION PANEL Routine 10/15/2023 1:06 AM STORE CONSULTANT CONTINUOUS CYCLIC PERITONEAL DIALYSIS (CCPD) Routine 10/15/2023 12:31 AM STORE CONSULTANT APTT Timed 10/14/2023 8:41 PM STORE CONSULTANT POCT GLUCOSE DEVICE Routine 10/14/2023 8:24 PM STORE CONSULTANT POCT GLUCOSE DEVICE Routine 10/14/2023 5:28 PM STORE CONSULTANT CONTINUOUS CYCLIC PERITONEAL DIALYSIS (CCPD) Routine 10/14/2023 3:44 PM STORE CONSULTANT APTT Timed 10/14/2023 2:39 PM STORE CONSULTANT POCT GLUCOSE DEVICE Routine 10/14/2023 12:15 PM STORE CONSULTANT POCT GLUCOSE DEVICE Routine 10/14/2023 11:06 AM STORE CONSULTANT POCT GLUCOSE DEVICE Routine 10/14/2023 8:34 AM STORE CONSULTANT POCT GLUCOSE DEVICE Routine 10/14/2023 5:56 AM STORE CONSULTANT EGFR STAT 10/14/2023 5:53 AM STORE CONSULTANT APTT STAT 10/14/2023 5:53 AM STORE CONSULTANT BASIC METABOLIC PANEL STAT 10/14/2023 5:53 AM STORE CONSULTANT POCT GLUCOSE DEVICE Routine 10/14/2023 3:58 AM STORE CONSULTANT POCT GLUCOSE DEVICE Routine 10/14/2023 3:04 AM STORE CONSULTANT POCT GLUCOSE DEVICE Routine 10/14/2023 2:05 AM STORE CONSULTANT EGFR STAT 10/14/2023 1:04 AM STORE CONSULTANT DIFFERENTIAL AUTO STAT 10/14/2023 1:04 AM STORE CONSULTANT CBC WITH AUTO DIFFERENTIAL STAT 10/14/2023 1:04 AM STORE CONSULTANT APTT STAT 10/14/2023 1:04 AM STORE CONSULTANT PROTIME-INR STAT 10/14/2023 1:04 AM STORE CONSULTANT COMPREHENSIVE METABOLIC PANEL STAT 10/14/2023 1:04 AM STORE CONSULTANT POCT GLUCOSE DEVICE Routine 10/13/2023 11:25 PM STORE CONSULTANT documented in this encounter Results * (ABNORMAL) [...] ORDERABLES - APRIL CE Final Result [facility] [address] [place] [address] * (ABNORMAL) Protime-INR (11/03/2023 11:43 AM CDT) PT 21.9(H) 10.3 - 13.7 sec INR 1.92(H) 0.90 - 1.20 [facility] Comment: Interpretive data Oral anticoagulant therapeutic ranges: Venous thromboembolism prophylaxis or treatment: 2.0-3.0 CARDIOLOGY Standard range: 2.0-3.0 High-intensity range: 2.5-3.5 Refer to indication-specific guidelines for appropriate target ranges for prosthetic heart valve replacement. Current interpretive data was last revised on 2019. Blood 11/03/2023 11:4 3 AM CDT 11/03/2023 12:58 PM CDT [facility] BLOOD ORDERABLES Final R esult Performing Organization Address [facility] Co de Phone Number [facility] [address] [place] [address] * (ABNORMAL) aPTT (11/03/2023 11:43 AM CDT) [...] BLOOD ORDERABLES Final Result Performing Organization Address [facility] Co de Phone Number [facility] [address] [place] [address] * (ABNORMAL) POCT glucose (11/03/2023 11:38 AM [...] APRIL CE Final Result Performing Organization Address [facility] Co de Phone Number [facility] [address] [place] [address] * (ABNORMAL) POCT glucose (11/03/2023 8:05 AM [...] ORDERABLES - APRIL CE Final Result ALESSANDRA [facility] [address] [place] [address] * eGFR (11/03/2023 4:41 AM CDT) Pathologist [facility] eGFR 7 mL/min/1. 73 m2 Comment: Interpretive [...] CDT 11/03/2023 4:41 AM CDT Byron Olvera [facility] BLOOD ORDERABLES Fi nal Result Performing Organization Address [facility] Co de Phone Number [facility] [address] [facility] [place], [place] [id number] * (ABNORMAL) aPTT (11/03/2023 4:41 AM CDT) [...] BLOOD ORDERABLES Final Result Performing Organization Address [facility] Co de Phone Number [facility] [address] [facility] [place] [address] * (ABNORMAL) Protime-INR (11/03/2023 4:41 AM CDT) PT 19.8(H) 10.3 - 13.7 sec INR 1.74(H) 0.90 - 1.20 [facility] Comment: Interpretive data Oral anticoagulant [...] Result Performing Organization Address City/[facility]/ZIP Co de Phone Number [facility] [address] [place] [address] * Magnesium (11/03/2023 4:41 AM CDT) [facility] Magnesium 2.4 1.4 - 2.5 mg/dL Blood 11/03/2023 4:41 AM CDT 11/03/2023 4:41 AM CDT Byron Rudi Wade [facility] LAB BLOOD ORDERABLES Fi nal Result Performing Organization Address [facility] Co de Phone Number [facility] [address] [place] [address] * (ABNORMAL) Renal function panel (11/03/2023 4:41 AM CDT) [facility] Sodium 132(L) 135 - 145 mmol/L Potassium, pl 3.7 3.3 - 4.9 mmol/L [facility] Chloride 92(L) 97 - 110 mmol/L [facility] CO2 27 22 - 32 mmol/L [facility] Anion gap 13 2 - 15 mmol/L [facility] BUN 79(H) 6 - 25 mg/dL [facility] Creatinine 8.23(H) 0.80 - 1.30 mg/dL [facility] Glucose 252(H) 70 - 199 mg/dL [facility] Comment: Interpretive Data Fasting glucose [...] 2022. Calcium 8.9 8.5 - 10.3 mg/dL [facility] Phosphorus, pl 4.2 2.3 - 4.5 mg/dL [facility] Albumin 2.9(L) 3.5 - 5.0 g/dL [facility] Blood 11/03/2023 4:41 AM CDT 11/03/2023 4:41 AM CDT Byron Olvera [employer] BLOOD ORDERABLES Fi nal Result Performing Organization Address [facility] Co de Phone Number [facility] [address] [employer] [place], [place] [phone] * (ABNORMAL) CBC without differential (11/03/2023 4:41 AM CDT) [facility] WBC 4.8 3.8 - 9.9 K/cumm Hgb 7.6(L) 13.0 - 17.5 g/dL [facility] Hct 24.4(L) 38.9 - 50.3 % [facility] Plt 389 150 - 400 K/cumm [facility] MPV 9.2 9.1 - 12.3 fL [facility] RBC 2.61(L) 4.30 - 5.80 M/cumm [facility] MCV 93.5 81.3 - 96.4 fL [facility] MCH 29.1 27.1 - 33.3 pg [facility] MCHC 31.1(L) 32.3 - 35.7 g/dL [facility] RDW CV 14.6 11.1 - 14.9 % [facility] RDW SD 50.1(H) 35.7 - 48.1 fL [facility] NRBC abs 0.00 0.00 - 0.01 K/cumm [facility] Blood 11/03/2023 4:41 AM CDT 11/03/2023 4:41 AM CDT Byron Olvera NP LAB BLOOD ORDERABLES Fi nal Result Performing Organization Address City/[facility]/ZIP Co de Phone Number [facility] [address] Department [place], [place] [id number] * aPTT (11/02/2023 8:38 PM CDT) aPTT [...] ORDERABLES Fin al Result Performing Organization Address [facility] Co de Phone Number [facility] [address] [facility] [place], [place] [id number] * (ABNORMAL) POCT glucose (11/02/2023 8:22 PM CDT) Pathologist [facility] Glucose, POC 170(H) 70 - 140 mg/dL Comment: For Glucose values <35 mg/dl when Hematocrit is >60 mg/dl,the test may not accurately detect significant hypoglycemia,and testing in the Laboratory should be considered if clinically indicated. Blood 11/02/2023 8:22 PM CDT 11/02/2023 8:22 PM CDT Jaqueline Valero MD LAB POCT ORDERABLES - APRIL CE Final Result Performing Organization Address [facility] Co de Phone Number [facility] [address] [place] [address] * (ABNORMAL) POCT glucose (11/02/2023 5:22 PM [...] APRIL CE Final Result Performing Organization Address [facility] Co de Phone Number [facility] [address] [place] [address] * aPTT (11/02/2023 1:17 PM CDT) aPTT 36 28 - 38 sec Comment: Interpretive Data Heparin therapeutic range: 66.0 - 100.0 seconds. Range based on correlation with therapeutic heparin activity range of 0.3 - 0.7 Units/mL. Current interpretive data was last revised on 2023. Blood 11/02/2023 1:17 PM CDT 11/02/2023 1:33 PM CDT Narrative [facility] - 11/02/2023 1:50 PM CDT Baseline prior to heparin initiation Nona GRACE LAB BLOOD ORDERABLES Fin al Result Performing Organization Address [facility] Co de Phone Number [facility] [address] Department [place], [place] [phone] * (ABNORMAL) POCT glucose (11/02/2023 12:27 PM [...] APRIL CE Final Result Performing Organization Address [facility] Co de Phone Number [facility] [address] Department [place], [place] [phone] * (ABNORMAL) POCT glucose (11/02/2023 8:15 AM [...] ORDERABLES - APRIL CE Final Result [facility] [address] Department [place] [address] * eGFR (11/02/2023 2:16 AM CDT) Pathologist [facility] eGFR 7 mL/min/1. 73 m2 Comment: Interpretive [...] CDT 11/02/2023 2:37 AM CDT Byron Olvera [employer] LAB BLOOD ORDERABLES Fi nal Result Performing Organization Address [facility] Co de Phone Number [facility] [address] [facility] [place] [address] * (ABNORMAL) Protime-INR (11/02/2023 2:16 AM CDT) PT 19.1(H) 10.3 - 13.7 sec INR 1.68(H) 0.90 - 1.20 [facility] Comment: Interpretive data Oral anticoagulant therapeutic ranges: Venous thromboembolism prophylaxis or treatment: 2.0-3.0 CARDIOLOGY Standard range: 2.0-3.0 High-intensity range: 2.5-3.5 Refer to indication-specific guidelines for appropriate target ranges for prosthetic heart valve replacement. Current interpretive data was last revised on 2019. Blood 11/02/2023 2:16 AM CDT 11/02/2023 2:37 AM CDT Byron Olvera [employer] LAB BLOOD ORDERABLES Fi nal Result Performing Organization Address [facility] Co de Phone Number [facility] [address] [facility] [place] [address] * Magnesium (11/02/2023 2:16 AM CDT) Magnesium 2.4 1.4 - 2.5 mg/dL Blood 11/02/2023 2:16 AM CDT 11/02/2023 2:37 AM CDT Byron Olvera [employer] LAB BLOOD ORDERABLES Fi nal Result Performing Organization Address [facility] Co de Phone Number [facility] [address] [facility] [place] [address] * (ABNORMAL) Renal function panel (11/02/2023 2:16 AM CDT) Sodium 128(L) 135 - 145 mmol/L Potassium, pl 3.9 3.3 - 4.9 mmol/L [facility] Chloride 89(L) 97 - 110 mmol/L [facility] CO2 25 22 - 32 mmol/L [facility] Anion gap 14 2 - 15 mmol/L [facility] BUN 86(H) 6 - 25 mg/dL [facility] Creatinine 8.74(H) 0.80 - 1.30 mg/dL [facility] Glucose 353(H) 70 - 199 mg/dL [facility] Comment: Interpretive Data Fasting glucose [...] 2022. Calcium 9.3 8.5 - 10.3 mg/dL [facility] Phosphorus, pl 3.7 2.3 - 4.5 mg/dL [facility] Albumin 2.7(L) 3.5 - 5.0 g/dL [facility] Blood 11/02/2023 2:16 AM CDT 11/02/2023 2:37 AM CDT us Byron Olvera NP LAB BLOOD ORDERABLES Fi nal Result [facility] [address] Department [place] [address] * (ABNORMAL) CBC without differential (11/02/2023 2:16 AM CDT) [facility] WBC 5.0 3.8 - 9.9 K/cumm Hgb 7.5(L) 13.0 - 17.5 g/dL [facility] Hct 24.5(L) 38.9 - 50.3 % [facility] Plt 391 150 - 400 K/cumm [facility] MPV 9.3 9.1 - 12.3 fL [facility] RBC 2.60(L) 4.30 - 5.80 M/cumm [facility] MCV 94.2 81.3 - 96.4 fL [facility] MCH 28.8 27.1 - 33.3 pg [facility] MCHC 30.6(L) 32.3 - 35.7 g/dL [facility] RDW CV 14.6 11.1 - 14.9 % [facility] RDW SD 50.4(H) 35.7 - 48.1 fL [facility] NRBC abs 0.00 0.00 - 0.01 K/cumm [facility] Blood 11/02/2023 2:16 AM CDT 11/02/2023 2:37 AM CDT us Byron Olvera NP LAB BLOOD ORDERABLES Fi nal Result Performing Organization Address [facility]/ZIP Co de Phone Number [facility] [address] [place] [place] [address] * (ABNORMAL) POCT glucose (11/02/2023 2:06 AM CDT) [facility] Glucose, POC 350(H) 70 - 140 mg/dL Comment: For Glucose values <35 mg/dl when Hematocrit is >60 mg/dl,the test may not accurately detect significant hypoglycemia,and testing in the Laboratory should be considered if clinically indicated. Blood 11/02/2023 2:06 AM CDT 11/02/2023 2:06 AM CDT Jaqueline Valero MD LAB POCT ORDERABLES - APRIL CE Final Result Performing Organization Address [facility]/ZIP Co de Phone Number [facility] [address] [place] [address] * (ABNORMAL) POCT glucose (11/01/2023 8:25 PM [...] APRIL CE Final Result Performing Organization Address [facility] de Phone Number [facility] [address] [facility] [place], [place] [phone] * (ABNORMAL) POCT glucose (11/01/2023 5:17 PM [...] APRIL CE Final Result Performing Organization Address [facility] de Phone Number [facility] [address] [facility] [place] [address] * (ABNORMAL) POCT glucose (11/01/2023 12:01 PM [...] APRIL CE Final Result Performing Organization Address [facility] de Phone Number [facility] [address] [facility] [place], [place] [phone] * (ABNORMAL) POCT glucose (11/01/2023 8:27 AM CDT) Pathologist [facility] Glucose, POC 246(H) 70 - 140 mg/dL Comment: For Glucose values <35 mg/dl when Hematocrit is >60 mg/dl,the test may not accurately detect significant hypoglycemia,and testing in the Laboratory should be considered if clinically indicated. Blood 11/01/2023 8:27 AM CDT 11/01/2023 8:27 AM CDT Jaqueline Valero MD LAB POCT ORDERABLES - APRIL CE Final Result Performing Organization Address [facility] de Phone Number [facility] [address] [place] [address] * eGFR (11/01/2023 2:09 AM CDT) Pathologist [facility] eGFR 6 mL/min/1. 73 m2 Comment: [...] Result Performing Organization Address [facility]/ZIP Co de Phone Number [facility] [address] [place] [address] * (ABNORMAL) Protime-INR (11/01/2023 2:09 AM CDT) PT 20.6(H) 10.3 - 13.7 sec INR 1.81(H) 0.90 - 1.20 [facility] Comment: Interpretive data Oral anticoagulant therapeutic ranges: [...] Result Performing Organization Address [facility]/ZIP Co de Phone Number [facility] [address] [place] [address] * Magnesium (11/01/2023 2:09 AM CDT) Magnesium 2.5 1.4 - 2.5 mg/dL Blood 11/01/2023 2:09 AM CDT 11/01/2023 2:21 AM CDT Byron Olvera NP LAB BLOOD ORDERABLES Fi nal Result [facility] [address] Department [place] [address] * (ABNORMAL) Renal function panel (11/01/2023 2:09 AM CDT) Sodium 131(L) 135 - 145 mmol/L Potassium, pl 4.0 3.3 - 4.9 mmol/L [facility] Chloride 91(L) 97 - 110 mmol/L [facility] CO2 25 22 - 32 mmol/L [facility] Anion gap 15 2 - 15 mmol/L [facility] BUN 89(H) 6 - 25 mg/dL [facility] Creatinine 8.97(H) 0.80 - 1.30 mg/dL [facility] Glucose 302(H) 70 - 199 mg/dL [facility] Comment: Interpretive Data Fasting glucose [...] 2022. Calcium 9.1 8.5 - 10.3 mg/dL [facility] Phosphorus, pl 4.1 2.3 - 4.5 mg/dL [facility] Albumin 2.9(L) 3.5 - 5.0 g/dL [facility] Blood 11/01/2023 2:09 AM CDT 11/01/2023 2:21 AM CDT Byron Olvera NP LAB BLOOD ORDERABLES Fi nal Result [facility] [address] [place] [address] * (ABNORMAL) CBC without differential (11/01/2023 2:09 AM CDT) [facility] WBC 5.9 3.8 - 9.9 K/cumm Hgb 7.7(L) 13.0 - 17.5 g/dL [facility] Hct 25.0(L) 38.9 - 50.3 % [facility] Plt 381 150 - 400 K/cumm [facility] MPV 9.2 9.1 - 12.3 fL [facility] RBC 2.65(L) 4.30 - 5.80 M/cumm [facility] MCV 94.3 81.3 - 96.4 fL [facility] MCH 29.1 27.1 - 33.3 pg [facility] MCHC 30.8(L) 32.3 - 35.7 g/dL [facility] RDW CV 14.8 11.1 - 14.9 % [facility] RDW SD 50.6(H) 35.7 - 48.1 fL [facility] NRBC abs 0.00 0.00 - 0.01 K/cumm [facility] Blood 11/01/2023 2:09 AM CDT 11/01/2023 2:21 AM CDT us Byron Olvera [employer] LAB BLOOD ORDERABLES nal Result [facility] [address] [place] [address] * Vancomycin level random (11/01/2023 2:09 AM CDT) [facility] Vancomycin random 17.3 mcg/mL Comment: Interpretive Data No reference ranges have been established for random drug levels. Current Interpretive Data was last revised on 2020. Blood 11/01/2023 2:09 AM CDT 11/01/2023 2:21 AM CDT us Guerline Rodriguez PA LAB BLOOD ORDERABLES Final R esult Performing Organization Address [facility] Co de Phone Number [facility] [address] [facility] [place], [place] [phone] * (ABNORMAL) POCT glucose (11/01/2023 2:05 AM [...] APRIL CE Final Result Performing Organization Address [facility] Co de Phone Number AL[facility]ANDR[facility] [address] [facility] [place] [address] * (ABNORMAL) POCT glucose (10/31/2023 9:21 PM [...] APRIL CE Final Result Performing Organization Address [facility] Co de Phone Number [facility] [address] [facility] [place], [place] [phone] * (ABNORMAL) POCT glucose (10/31/2023 5:12 PM [...] APRIL CE Final Result Performing Organization Address [facility] Co de Phone Number [facility] [address] [facility] [place] [address] * (ABNORMAL) POCT glucose (10/31/2023 12:02 PM [...] APRIL CE Final Result Performing Organization Address [facility] de Phone Number [facility] [address] [facility] [place] [address] * (ABNORMAL) POCT glucose (10/31/2023 12:01 PM [...] APRIL CE Final Result Performing Organization Address [facility] Co de Phone Number [facility] [address] [place] [address] * (ABNORMAL) POCT glucose (10/31/2023 8:06 AM CDT) [facility] Glucose, POC 338(H) 70 - 140 mg/dL Comment: For Glucose values <35 mg/dl when Hematocrit is >60 mg/dl,the test may not accurately detect significant hypoglycemia,and testing in the Laboratory should be considered if clinically indicated. Blood 10/31/2023 8:06 AM CDT 10/31/2023 8:06 AM CDT us Jaqueline Valero MD LAB POCT ORDERABLES - APRIL CE Final Result [facility] [address] Department [place] [address] * eGFR (10/31/2023 2:25 AM CDT) [facility] eGFR 6 mL/min/1. 73 m2 Comment: [...] Result Performing Organization Address [facility] Co de Phone Number [facility] [address] [facility] [place] [address] * (ABNORMAL) Protime-INR (10/31/2023 2:25 AM CDT) PT 20.6(H) 10.3 - 13.7 sec INR 1.81(H) 0.90 - 1.20 [facility] Comment: Interpretive data Oral anticoagulant therapeutic ranges: Venous thromboembolism prophylaxis or treatment: 2.0-3.0 CARDIOLOGY Standard range: 2.0-3.0 High-intensity range: 2.5-3.5 Refer to indication-specific guidelines for appropriate target ranges for prosthetic heart valve replacement. Current interpretive data was last revised on 2019. Blood 10/31/2023 2:25 AM CDT 10/31/2023 2:34 AM CDT Byron Olvera NP LAB BLOOD ORDERABLES Fi nal Result Performing Organization Address [facility] Co de Phone Number [facility] [address] [facility] [place] [address] * Magnesium (10/31/2023 2:25 AM CDT) Magnesium 2.5 1.4 - 2.5 mg/dL Blood 10/31/2023 2:25 AM CDT 10/31/2023 2:35 AM CDT Byron Olvera NP LAB BLOOD ORDERABLES Fi nal Result Performing Organization Address [facility] Co de Phone Number [facility] [address] [facility] [place] [address] * (ABNORMAL) Renal function panel (10/31/2023 2:25 AM CDT) [facility] Sodium 131(L) 135 - 145 mmol/L Potassium, pl 4.0 3.3 - 4.9 mmol/L [facility] Chloride 91(L) 97 - 110 mmol/L [facility] CO2 24 22 - 32 mmol/L [facility] Anion gap 16(H) 2 - 15 mmol/L [facility] BUN 90(H) 6 - 25 mg/dL [facility] Creatinine 9.34(H) 0.80 - 1.30 mg/dL [facility] Glucose 275(H) 70 - 199 mg/dL [facility] Comment: Interpretive Data Fasting glucose [...] 2022. Calcium 9.5 8.5 - 10.3 mg/dL [facility] Phosphorus, pl 4.8(H) 2.3 - 4.5 mg/dL [facility] Albumin 2.7(L) 3.5 - 5.0 g/dL [facility] Blood 10/31/2023 2:25 AM CDT 10/31/2023 2:35 AM CDT Byron Olvera NP LAB BLOOD ORDERABLES nal Result [facility] [address] Department [place] [address] * (ABNORMAL) CBC without differential (10/31/2023 2:25 AM CDT) [facility] WBC 6.6 3.8 - 9.9 K/cumm Hgb 7.9(L) 13.0 - 17.5 g/dL [facility] Hct 25.5(L) 38.9 - 50.3 % [facility] Plt 366 150 - 400 K/cumm [facility] MPV 9.3 9.1 - 12.3 fL [facility] RBC 2.70(L) 4.30 - 5.80 M/cumm [facility] MCV 94.4 81.3 - 96.4 fL [facility] MCH 29.3 27.1 - 33.3 pg [facility] MCHC 31.0(L) 32.3 - 35.7 g/dL [facility] RDW CV 15.1(H) 11.1 - 14.9 % [facility] RDW SD 52.3(H) 35.7 - 48.1 fL [facility] NRBC abs 0.00 0.00 - 0.01 K/cumm [facility] Blood 10/31/2023 2:25 AM CDT 10/31/2023 2:34 AM CDT us Byron Olvera [employer] LAB BLOOD ORDERABLES Fi nal Result [facility] [address] Department [place] [address] * (ABNORMAL) POCT glucose (10/30/2023 9:39 PM CDT) [facility] Glucose, POC 238(H) 70 - 140 mg/dL Comment: For Glucose values <35 mg/dl when Hematocrit is >60 mg/dl,the test may not accurately detect significant hypoglycemia,and testing in the Laboratory should be considered if clinically indicated. Blood 10/30/2023 9:39 PM CDT 10/30/2023 9:39 PM CDT us Jaqueline Valero MD LAB POCT ORDERABLES - APRIL CE Final Result [facility] [address] [place] [address] * (ABNORMAL) POCT glucose (10/30/2023 5:31 PM [...] APRIL CE Final Result Performing Organization Address [facility] de Phone Number [facility] [address] [place] [address] * (ABNORMAL) POCT glucose (10/30/2023 12:17 PM [...] APRIL CE Final Result Performing Organization Address [facility] Co de Phone Number [facility] [address] [place] [address] * (ABNORMAL) POCT glucose (10/30/2023 6:20 AM [...] APRIL CE Final Result Performing Organization Address [facility]/ZIP Co de Phone Number [facility] [address] Department [place] [address] * eGFR (10/30/2023 4:18 AM CDT) eGFR [...] NP LAB BLOOD ORDERABLES Fi nal Result [facility] [address] [facility] [place] [address] * (ABNORMAL) Protime-INR (10/30/2023 4:18 AM CDT) [facility] PT 22.8(H) 10.3 - 13.7 sec INR 2.00(H) 0.90 - 1.20 [facility] Comment: Interpretive data Oral anticoagulant [...] Result Performing Organization Address [facility]/ZIP Co de Phone Number [facility] [address] [facility] [place] [address] * Magnesium (10/30/2023 4:18 AM CDT) [facility] Magnesium 2.4 1.4 - 2.5 mg/dL Blood 10/30/2023 4:18 AM CDT 10/30/2023 4:45 AM CDT Byron Olvera [employer] LAB BLOOD ORDERABLES Fi nal Result [facility] [address] [facility] [place] [address] * (ABNORMAL) Renal function panel (10/30/2023 4:18 AM CDT) [facility] Sodium 132(L) 135 - 145 mmol/L Potassium, pl 4.0 3.3 - 4.9 mmol/L [facility] Chloride 89(L) 97 - 110 mmol/L [facility] CO2 25 22 - 32 mmol/L [facility] Anion gap 18(H) 2 - 15 mmol/L [facility] BUN 93(H) 6 - 25 mg/dL [facility] Creatinine 9.55(H) 0.80 - 1.30 mg/dL [facility] Glucose 292(H) 70 - 199 mg/dL [facility] Comment: Interpretive Data Fasting glucose [...] 2022. Calcium 9.3 8.5 - 10.3 mg/dL [facility] Phosphorus, pl 5.4(H) 2.3 - 4.5 mg/dL [facility] Albumin 2.7(L) 3.5 - 5.0 g/dL [facility] Blood 10/30/2023 4:18 AM CDT 10/30/2023 4:45 AM CDT us Byron Olvera NP LAB BLOOD ORDERABLES Fi nal Result [facility] [address] Department [place] [address] * (ABNORMAL) CBC without differential (10/30/2023 4:18 AM CDT) WBC 6.5 3.8 - 9.9 K/cumm Hgb 7.6(L) 13.0 - 17.5 g/dL [facility] Hct 24.3(L) 38.9 - 50.3 % [facility] Plt 317 150 - 400 K/cumm [facility] MPV 9.8 9.1 - 12.3 fL [facility] RBC 2.59(L) 4.30 - 5.80 M/cumm [facility] MCV 93.8 81.3 - 96.4 fL [facility] MCH 29.3 27.1 - 33.3 pg [facility] MCHC 31.3(L) 32.3 - 35.7 g/dL [facility] RDW CV 15.1(H) 11.1 - 14.9 % [facility] RDW SD 52.2(H) 35.7 - 48.1 fL [facility] NRBC abs 0.00 0.00 - 0.01 K/cumm [facility] Blood 10/30/2023 4:18 AM CDT 10/30/2023 4:45 AM CDT Byron Olvera [employer] LAB BLOOD ORDERABLES Fi nal Result Performing Organization Address [facility]/ZIP Co de Phone Number [facility] [address] [place] [address] * (ABNORMAL) POCT glucose (10/29/2023 9:59 PM [...] APRIL CE Final Result Performing Organization Address [facility]/ZIP Co de Phone Number [facility] [address] [place] [address] * (ABNORMAL) POCT glucose (10/29/2023 5:41 PM [...] ORDERABLES - APRIL CE Final Result [facility] [address] [place] [address] * US Vein Duplex Lower Extremity Bilateral [...] ORDERABLES - APRIL CE Final Result [facility] [address] [place] [address] * (ABNORMAL) POCT glucose (10/29/2023 [...] ORDERABLES - APRIL CE Final Result [facility] [address] [place] [address] * eGFR (10/29/2023 4:04 AM CDT) eGFR [...] CDT 10/29/2023 4:10 AM CDT Byron Olvera [employer] LAB BLOOD ORDERABLES Fi nal Result [facility] [address] [place] [address] * (ABNORMAL) Protime-INR (10/29/2023 4:04 AM CDT) Pathologist [facility] PT 26.9(H) 10.3 - 13.7 sec INR 2.36(H) 0.90 - 1.20 [facility] Comment: Interpretive data Oral anticoagulant therapeutic ranges: Venous thromboembolism prophylaxis or treatment: 2.0-3.0 CARDIOLOGY Standard range: 2.0-3.0 High-intensity range: 2.5-3.5 Refer to indication-specific guidelines for appropriate target ranges for prosthetic heart valve replacement. Current interpretive data was last revised on 2019. Blood 10/29/2023 4:04 AM CDT 10/29/2023 4:11 AM CDT Byron Olvera [employer] LAB BLOOD ORDERABLES Fi nal Result [facility] [address] [place] [address] * Magnesium (10/29/2023 4:04 AM CDT) Pathologist [facility] Magnesium 2.4 1.4 - 2.5 mg/dL Blood 10/29/2023 4:04 AM CDT 10/29/2023 4:10 AM CDT Byron Olvera [employer] LAB BLOOD ORDERABLES Fi nal Result [facility] [address] [place] [address] * (ABNORMAL) Renal function panel (10/29/2023 4:04 AM CDT) Pathologist [facility] Sodium 129(L) 135 - 145 mmol/L Potassium, pl 4.1 3.3 - 4.9 mmol/L [facility] [facility] Chloride 87(L) 97 - 110 mmol/L [facility] CO2 23 22 - 32 mmol/L [facility] Anion gap 19(H) 2 - 15 mmol/L [facility] BUN 85(H) 6 - 25 mg/dL [facility] Creatinine 9.66(H) 0.80 - 1.30 mg/dL [facility] Glucose 297(H) 70 - 199 mg/dL [facility] Comment: Interpretive Data Fasting glucose [...] 2022. Calcium 9.5 8.5 - 10.3 mg/dL [facility] Phosphorus, pl 5.8(H) 2.3 - 4.5 mg/dL [facility] Albumin 2.9(L) 3.5 - 5.0 g/dL [facility] Blood 10/29/2023 4:04 AM CDT 10/29/2023 4:10 AM CDT Byron Olvera NP LAB BLOOD ORDERABLES Fi nal Result [facility] [address] Department [place] [address] * (ABNORMAL) CBC without differential (10/29/2023 4:04 AM CDT) WBC 7.0 3.8 - 9.9 K/cumm Hgb 7.9(L) 13.0 - 17.5 g/dL [facility] Hct 25.2(L) 38.9 - 50.3 % [facility] Plt 291 150 - 400 K/cumm [facility] MPV 10.0 9.1 - 12.3 fL [facility] RBC 2.70(L) 4.30 - 5.80 M/cumm [facility] MCV 93.3 81.3 - 96.4 fL [facility] MCH 29.3 27.1 - 33.3 pg [facility] MCHC 31.3(L) 32.3 - 35.7 g/dL [facility] RDW CV 15.4(H) 11.1 - 14.9 % [facility] RDW SD 52.0(H) 35.7 - 48.1 fL [facility] NRBC abs 0.00 0.00 - 0.01 K/cumm [facility] Blood 10/29/2023 4:04 AM CDT 10/29/2023 4:11 AM CDT us Byron Olvera [employer] LAB BLOOD ORDERABLES Fi nal Result Performing Organization Address [facility]/ZIP Co de Phone Number [facility] [address] [employer] [place], [place] [id number] * (ABNORMAL) POCT glucose (10/28/2023 8:22 PM STORE CONSULTANT) Glucose, POC 195(H) 70 - 140 mg/dL Comment: For Glucose values <35 mg/dl when Hematocrit is >60 mg/dl,the test may not accurately detect significant hypoglycemia,and testing in the Laboratory should be considered if clinically indicated. Blood 10/28/2023 8:22 PM STORE CONSULTANT 10/28/2023 8:22 PM STORE CONSULTANT Jaqueline Valero MD LAB POCT ORDERABLES - APRIL CE Final Result Performing Organization Address [facility]/ZIP Co de Phone Number [facility] [address] Department [place], [place] [id number] * (ABNORMAL) POCT glucose (10/28/2023 5:24 PM STORE CONSULTANT) Glucose, POC 222(H) 70 - 140 mg/dL Comment: For Glucose values <35 mg/dl when Hematocrit is >60 mg/dl,the test may not accurately detect significant hypoglycemia,and testing in the Laboratory should be considered if clinically indicated. Blood 10/28/2023 5:24 PM STORE CONSULTANT 10/28/2023 5:24 PM STORE CONSULTANT Jaqueline Valero MD LAB POCT ORDERABLES - APRIL CE Final Result Performing Organization Address [facility] de Phone Number [facility] [address] [facility] [place] [address] * (ABNORMAL) POCT glucose (10/28/2023 12:45 PM STORE CONSULTANT) Glucose, POC 201(H) 70 - 140 mg/dL Comment: For Glucose values <35 mg/dl when Hematocrit is >60 mg/dl,the test may not accurately detect significant hypoglycemia,and testing in the Laboratory should be considered if clinically indicated. Blood 10/28/2023 12:4 5 PM STORE CONSULTANT 10/28/2023 12:45 PM STORE CONSULTANT Jaqueline Valero MD LAB POCT ORDERABLES - APRIL CE Final Result Performing Organization Address [facility] de Phone Number [facility] [address] [facility] [place] [address] * POCT glucose (10/28/2023 8:04 AM STORE CONSULTANT) Glucose, POC 101 70 - 140 mg/dL Comment: For Glucose values <35 mg/dl when Hematocrit is >60 mg/dl,the test may not accurately detect significant hypoglycemia,and testing in the Laboratory should be considered if clinically indicated. Blood 10/28/2023 8:0 4 AM STORE CONSULTANT 10/28/2023 8:04 AM STORE CONSULTANT Jaqueline Valero MD LAB POCT ORDERABLES - APRIL CE Final Result Performing Organization Address [facility]/ZIP Co de Phone Number [facility] [address] Department [place] [address] * XR Chest 1 View - Portable - in AM (10/28/2023 6:00 AM STORE CONSULTANT) Anatomical Region Laterality Modality Body, Chest N/A Computed Radiogr aphy 10/28/2023 8:40 AM STORE CONSULTANT Impressions 10/28/2023 8:40 AM STORE CONSULTANT Comparison made to radiograph 10/27/2023. Right internal jugular approach central venous catheter tip overlying the superior vena cava. ??Median sternotomy wires and plates in similar alignment. Likely small bilateral pleural effusions with fluid along the right minor fissure. ??There is mild bibasilar atelectasis. ??No pneumothorax. ??Cardiomediastinal silhouette is stably enlarged. Electronically signed by: Trace Barrow M.D. Narrative 10/28/2023 8:40 AM STORE CONSULTANT EXAMINATION: XR CHEST 1 VIEW Procedure Note [...] signed by: Trace Barrow M.D. Byron Olvera [employer] IMG XR PROCEDURES Final Result * eGFR (10/28/2023 12:34 AM STORE CONSULTANT) eGFR 6 mL/min/1. 73 m2 Comment: Interpretive [...] reviewed 2021. Blood 10/28/2023 12:3 4 AM STORE CONSULTANT 10/28/2023 1:02 AM STORE CONSULTANT us Byron Olvera NP LAB BLOOD ORDERABLES Fi nal Result Performing Organization Address [facility] Co de Phone Number [facility] [address] [place] [address] * (ABNORMAL) aPTT (10/28/2023 12:34 AM STORE CONSULTANT) aPTT 102(H) 28 - 38 sec Comment: Interpretive Data Heparin therapeutic range: 66.0 - 100.0 seconds. Range based on correlation with therapeutic heparin activity range of 0.3 - 0.7 Units/mL. Current interpretive data was last revised on 2023. Blood 10/28/2023 12:3 4 AM STORE CONSULTANT 10/28/2023 1:02 AM STORE CONSULTANT Narrative ALESSANDRA MACKENZIE - 10/28/2023 1:15 AM STORE CONSULTANT While on heparin us Jaqueline Valero MD LAB BLOOD ORDERABLES Final Result Performing Organization Address [facility] Co de Phone Number [facility] [address] [place] [address] * (ABNORMAL) Protime-INR (10/28/2023 12:34 AM STORE CONSULTANT) [facility] PT 30.1(H) 10.3 - 13.7 sec INR 2.64(H) 0.90 - 1.20 [facility] Comment: Interpretive data Oral anticoagulant therapeutic ranges: Venous thromboembolism prophylaxis or treatment: 2.0-3.0 CARDIOLOGY Standard range: 2.0-3.0 High-intensity range: 2.5-3.5 Refer to indication-specific guidelines for appropriate target ranges for prosthetic heart valve replacement. Current interpretive data was last revised on 2019. Blood 10/28/2023 12:3 4 AM STORE CONSULTANT 10/28/2023 1:02 AM STORE CONSULTANT Byron Olvera NP LAB BLOOD ORDERABLES Fi nal Result Performing Organization Address [facility]/ZIP Co de Phone Number [facility] [address] [email or web address] [address] * Magnesium (10/28/2023 12:34 AM STORE CONSULTANT) [facility] Magnesium 2.3 1.4 - 2.5 mg/dL Blood 10/28/2023 12:3 4 AM STORE CONSULTANT 10/28/2023 1:02 AM STORE CONSULTANT Byron Olvera NP LAB BLOOD ORDERABLES Fi nal Result Performing Organization Address City/[facility]/ZIP Co de Phone Number [facility] [address] [facility] [place] [address] * (ABNORMAL) Renal function panel (10/28/2023 12:34 AM STORE CONSULTANT) [facility] Sodium 128(L) 135 - 145 mmol/L Potassium, pl 4.4 3.3 - 4.9 mmol/L [facility] Chloride 87(L) 97 - 110 mmol/L [facility] CO2 22 22 - 32 mmol/L [facility] Anion gap 19(H) 2 - 15 mmol/L [facility] BUN 90(H) 6 - 25 mg/dL [facility] Creatinine 9.98(H) 0.80 - 1.30 mg/dL [facility] Glucose 270(H) 70 - 199 mg/dL [facility] Comment: Interpretive Data Fasting glucose [...] 2022. Calcium 8.9 8.5 - 10.3 mg/dL [facility] Phosphorus, pl 6.3(H) 2.3 - 4.5 mg/dL [facility] Albumin 2.9(L) 3.5 - 5.0 g/dL [facility] Blood 10/28/2023 12:3 4 AM STORE CONSULTANT 10/28/2023 1:02 AM STORE CONSULTANT Byron Olvera NP LAB BLOOD ORDERABLES Fi nal Result [facility] [address] Department of Laboratories [place], [place] [id number] * (ABNORMAL) CBC without differential (10/28/2023 12:34 AM STORE CONSULTANT) Pathologist [facility] WBC 7.4 3.8 - 9.9 K/cumm Hgb 7.4(L) 13.0 - 17.5 g/dL [facility] Hct 24.1(L) 38.9 - 50.3 % [facility] Plt 244 150 - 400 K/cumm [facility] MPV 10.5 9.1 - 12.3 fL [facility] RBC 2.55(L) 4.30 - 5.80 M/cumm [facility] MCV 94.5 81.3 - 96.4 fL [facility] MCH 29.0 27.1 - 33.3 pg [facility] MCHC 30.7(L) 32.3 - 35.7 g/dL [facility] RDW CV 15.6(H) 11.1 - 14.9 % [facility] RDW SD 53.4(H) 35.7 - 48.1 fL [facility] NRBC abs 0.00 0.00 - 0.01 K/cumm [facility] Blood 10/28/2023 12:3 4 AM STORE CONSULTANT 10/28/2023 1:03 AM STORE CONSULTANT Byron Olvera [employer] LAB BLOOD ORDERABLES Fi nal Result Performing Organization Address [facility] Co de Phone Number [facility] [address] [place] [place] [address] * (ABNORMAL) POCT glucose (10/27/2023 10:01 PM STORE CONSULTANT) Glucose, POC 312(H) 70 - 140 mg/dL Comment: For Glucose values <35 mg/dl when Hematocrit is >60 mg/dl,the test may not accurately detect significant hypoglycemia,and testing in the Laboratory should be considered if clinically indicated. Blood 10/27/2023 10:0 1 PM STORE CONSULTANT 10/27/2023 10:01 PM STORE CONSULTANT us Jaqueline Valero MD LAB POCT ORDERABLES - APRIL CE Final Result Performing Organization Address [facility] Co de Phone Number [facility] [address] [place] [address] * POCT glucose (10/27/2023 5:48 PM STORE CONSULTANT) Glucose, POC 108 70 - 140 mg/dL Comment: For Glucose values <35 mg/dl when Hematocrit is >60 mg/dl,the test may not accurately detect significant hypoglycemia,and testing in the Laboratory should be considered if clinically indicated. Blood 10/27/2023 5:48 PM STORE CONSULTANT 10/27/2023 5:48 PM STORE CONSULTANT Jaqueline Valero MD LAB POCT ORDERABLES - APRIL CE Final Result Performing Organization Address [facility] de Phone Number [facility] [address] [facility] [place] [address] * (ABNORMAL) POCT glucose (10/27/2023 11:54 AM STORE CONSULTANT) Glucose, POC 232(H) 70 - 140 mg/dL Comment: For Glucose values <35 mg/dl when Hematocrit is >60 mg/dl,the test may not accurately detect significant hypoglycemia,and testing in the Laboratory should be considered if clinically indicated. Blood 10/27/2023 11:5 4 AM STORE CONSULTANT 10/27/2023 11:54 AM STORE CONSULTANT Jaqueline Valero MD LAB POCT ORDERABLES - APRIL CE Final Result Performing Organization Address [facility] de Phone Number [facility] [address] [facility] [place] [address] * (ABNORMAL) T4, free (10/27/2023 11:02 AM STORE CONSULTANT) Free T4 0.68(L) 0.90 - 1.70 ng/dL Blood 10/27/2023 11:0 2 AM STORE CONSULTANT 10/27/2023 11:14 AM STORE CONSULTANT Result [facility] Fernandez Carranza MD LAB BLOOD ORDERABLES Final Resu lt Performing Organization Address [facility] de Phone Number [facility] [address] [facility] [place] [address] * (ABNORMAL) POCT glucose (10/27/2023 8:28 AM STORE CONSULTANT) Glucose, POC 255(H) 70 - 140 mg/dL Comment: For Glucose values <35 mg/dl when Hematocrit is >60 mg/dl,the test may not accurately detect significant hypoglycemia,and testing in the Laboratory should be considered if clinically indicated. Blood 10/27/2023 8:28 AM STORE CONSULTANT 10/27/2023 8:28 AM STORE CONSULTANT Jaqueline Valero MD LAB POCT ORDERABLES - APRIL CE Final Result [facility] [address] Department [place] [address] * XR Chest 1 View - Portable - in AM (10/27/2023 6:14 AM STORE CONSULTANT) Anatomical Region Laterality Modality Body, Chest N/A Computed Radiogr aphy 10/27/2023 10:5 5 AM STORE CONSULTANT Impressions 10/27/2023 10:55 AM STORE CONSULTANT Right internal jugular central venous catheter terminates in the superior cavoatrial junction. Unchanged small left pleural effusion with associated atelectasis. No consolidation to suggest pneumonia. ??No pneumothorax. ??Cardiac mediastinal silhouette is stable. Electronically signed by: Gucci Moe M.D. Narrative 10/27/2023 10:55 AM STORE CONSULTANT EXAMINATION: XR CHEST 1 VIEW HISTORY: pleural [...] by: Gucci Moe M.D. us Byron Olvera [employer] IMG XR PROCEDURES Final Result * (ABNORMAL) Osmolality, blood (10/27/2023 6:02 AM STORE CONSULTANT) Osmo 313(H) 275 - 295 mOsm/kg Blood 10/27/2023 6:02 AM STORE CONSULTANT 10/27/2023 6:12 AM STORE CONSULTANT Fernandez Carranza MD LAB BLOOD ORDERABLES Final Resu lt Performing Organization Address [facility] de Phone Number [facility] [address] [facility] [place], [place] [id number] * (ABNORMAL) TSH (10/27/2023 2:30 AM STORE CONSULTANT) Pathologist [facility] Thyroid Stimulating Hormone 13.20(H) 0.30 - 4.20 mcIUnit/mL Blood 10/27/2023 2:30 AM STORE CONSULTANT 10/27/2023 2:42 AM STORE CONSULTANT Jaqueline Valero MD LAB BLOOD ORDERABLES Final Result Performing Organization Address [facility] de Phone Number [facility] [address] [facility] [place] [address] * (ABNORMAL) aPTT (10/27/2023 2:30 AM STORE CONSULTANT) [facility] aPTT 91(H) 28 - 38 sec Comment: Interpretive Data Heparin therapeutic range: 66.0 - 100.0 seconds. Range based on correlation with therapeutic heparin activity range of 0.3 - 0.7 Units/mL. Current interpretive data was last revised on 2023. Blood 10/27/2023 2:30 AM STORE CONSULTANT 10/27/2023 2:34 AM STORE CONSULTANT Jaqueline Valero MD LAB BLOOD ORDERABLES Final Result Performing Organization Address [facility] de Phone Number [facility] [address] [facility] [place] [address] * eGFR (10/27/2023 2:30 AM STORE CONSULTANT) Pathologist [facility] eGFR 6 mL/min/1. 73 m2 Comment: [...] last reviewed 2021. Blood 10/27/2023 2:30 AM STORE CONSULTANT 10/27/2023 2:42 AM STORE CONSULTANT us Byron Olvera NP LAB BLOOD ORDERABLES Fi nal Result [facility] [address] [place] [address] * (ABNORMAL) Protime-INR (10/27/2023 2:30 AM STORE CONSULTANT) PT 22.7(H) 10.3 - 13.7 sec INR 1.99(H) 0.90 - 1.20 [facility] Comment: Interpretive data Oral anticoagulant therapeutic ranges: Venous thromboembolism prophylaxis or treatment: 2.0-3.0 CARDIOLOGY Standard range: 2.0-3.0 High-intensity range: 2.5-3.5 Refer to indication-specific guidelines for appropriate target ranges for prosthetic heart valve replacement. Current interpretive data was last revised on 2019. Blood 10/27/2023 2:30 AM STORE CONSULTANT 10/27/2023 2:34 AM STORE CONSULTANT us Byron Olvera [employer] LAB BLOOD ORDERABLES Fi nal Result Performing Organization Address [facility]/ZIP Co de Phone Number [facility] [address] [place] [address] * Magnesium (10/27/2023 2:30 AM STORE CONSULTANT) [facility] Magnesium 2.3 1.4 - 2.5 mg/dL Blood 10/27/2023 2:30 AM STORE CONSULTANT 10/27/2023 2:42 AM STORE CONSULTANT Byron Olvera [employer] LAB BLOOD ORDERABLES Fi nal Result Performing Organization Address [facility] Co de Phone Number [facility] [address] [email or web address] [address] * (ABNORMAL) Renal function panel (10/27/2023 2:30 AM STORE CONSULTANT) [facility] Sodium 123(L) 135 - 145 mmol/L Potassium, pl 4.2 3.3 - 4.9 mmol/L [facility] Chloride 85(L) 97 - 110 mmol/L [facility] CO2 24 22 - 32 mmol/L [facility] Anion gap 14 2 - 15 mmol/L [facility] BUN 87(H) 6 - 25 mg/dL [facility] Creatinine 10.09(H) 0.80 - 1.30 mg/dL [facility] Glucose 192 70 - 199 mg/dL [facility] Comment: Interpretive Data Fasting glucose [...] 2022. Calcium 8.7 8.5 - 10.3 mg/dL [facility] Phosphorus, pl 7.1(H) 2.3 - 4.5 mg/dL [facility] Albumin 2.9(L) 3.5 - 5.0 g/dL [facility] Blood 10/27/2023 2:30 AM STORE CONSULTANT 10/27/2023 2:42 AM STORE CONSULTANT Byron Olvera NP LAB BLOOD ORDERABLES Fi nal Result Performing Organization Address [facility] Co de Phone Number [facility] [address] [employer] [place], [place] [id number] * (ABNORMAL) CBC without differential (10/27/2023 2:30 AM STORE CONSULTANT) [facility] WBC 8.0 3.8 - 9.9 K/cumm Hgb 7.5(L) 13.0 - 17.5 g/dL [facility] Hct 23.7(L) 38.9 - 50.3 % [facility] Plt 222 150 - 400 K/cumm [facility] MPV 10.3 9.1 - 12.3 fL [facility] RBC 2.55(L) 4.30 - 5.80 M/cumm [facility] MCV 92.9 81.3 - 96.4 fL [facility] MCH 29.4 27.1 - 33.3 pg [facility] MCHC 31.6(L) 32.3 - 35.7 g/dL [facility] RDW CV 15.6(H) 11.1 - 14.9 % [facility] RDW SD 53.1(H) 35.7 - 48.1 fL [facility] NRBC abs 0.00 0.00 - 0.01 K/cumm [facility] Blood 10/27/2023 2:30 AM STORE CONSULTANT 10/27/2023 2:42 AM STORE CONSULTANT Byron Olvera NP LAB BLOOD ORDERABLES Fi nal Result Performing Organization Address [facility]/ZIP Co de Phone Number [facility] [address] Department [place], [place] [id number] * (ABNORMAL) POCT glucose (10/26/2023 11:15 PM STORE CONSULTANT) Glucose, POC 220(H) 70 - 140 mg/dL Comment: For Glucose values <35 mg/dl when Hematocrit is >60 mg/dl,the test may not accurately detect significant hypoglycemia,and testing in the Laboratory should be considered if clinically indicated. Blood 10/26/2023 11:1 5 PM STORE CONSULTANT 10/26/2023 11:15 PM STORE CONSULTANT Jaqueline Valero MD LAB POCT ORDERABLES - APRIL CE Final Result Performing Organization Address [facility] Co de Phone Number [facility] [address] [facility] [place] [address] * (ABNORMAL) POCT glucose (10/26/2023 4:53 PM STORE CONSULTANT) Glucose, POC 333(H) 70 - 140 mg/dL Comment: For Glucose values <35 mg/dl when Hematocrit is >60 mg/dl,the test may not accurately detect significant hypoglycemia,and testing in the Laboratory should be considered if clinically indicated. Blood 10/26/2023 4:53 PM STORE CONSULTANT 10/26/2023 4:53 PM STORE CONSULTANT Jaqueline Valero MD LAB POCT ORDERABLES - APRIL CE Final Result Performing Organization Address [facility] Co de Phone Number [facility] [address] [facility] [place] [address] * (ABNORMAL) POCT glucose (10/26/2023 11:57 AM STORE CONSULTANT) Glucose, POC 203(H) 70 - 140 mg/dL Comment: For Glucose values <35 mg/dl when Hematocrit is >60 mg/dl,the test may not accurately detect significant hypoglycemia,and testing in the Laboratory should be considered if clinically indicated. Blood 10/26/2023 11:5 7 AM STORE CONSULTANT 10/26/2023 11:57 AM STORE CONSULTANT Jaqueline Valero MD LAB POCT ORDERABLES - APRIL CE Final Result Performing Organization Address [facility] Co de Phone Number [facility] [address] Department [place] [address] * POCT glucose (10/26/2023 8:00 AM STORE CONSULTANT) [facility] Signature Glucose, POC 90 70 - 140 mg/dL Comment: For Glucose values <35 mg/dl when Hematocrit is >60 mg/dl,the test may not accurately detect significant hypoglycemia,and testing in the Laboratory should be considered if clinically indicated. Blood 10/26/2023 8:00 AM STORE CONSULTANT 10/26/2023 8:00 AM STORE CONSULTANT Jaqueline Valero MD LAB POCT ORDERABLES - APRIL CE Final Result Performing Organization Address [facility] de Phone Number [facility] [address] Department [place] [address] * XR Chest 1 View - Portable - in AM (10/26/2023 5:09 AM STORE CONSULTANT) Anatomical Region Laterality Modality Body, Chest N/A Computed Radiogr aphy 10/26/2023 7:40 AM STORE CONSULTANT Impressions 10/26/2023 7:40 AM STORE CONSULTANT Comparison chest radiograph 10/25/2023 at 6:39 AM. [...] Chris Troncoso M.D. Narrative 10/26/2023 7:40 AM STORE CONSULTANT EXAMINATION: ??1 view chest radiograph Procedure Note [...] signed by: Chris Troncoso M.D. Byron Olvera [employer] IMG XR PROCEDURES Final Result * eGFR (10/26/2023 2:29 AM STORE CONSULTANT) eGFR 6 mL/min/1. 73 m2 Comment: Interpretive [...] last reviewed 2021. Blood 10/26/2023 2:29 AM STORE CONSULTANT 10/26/2023 3:11 AM STORE CONSULTANT Byron Olvera [employer] LAB BLOOD ORDERABLES Fi nal Result Performing Organization Address [facility] Co de Phone Number [facility] [address] [place] [address] * (ABNORMAL) aPTT (10/26/2023 2:29 AM STORE CONSULTANT) aPTT 74(H) 28 - 38 sec Comment: Interpretive Data Heparin therapeutic range: 66.0 - 100.0 seconds. Range based on correlation with therapeutic heparin activity range of 0.3 - 0.7 Units/mL. Current interpretive data was last revised on 2023. Blood 10/26/2023 2:29 AM STORE CONSULTANT 10/26/2023 2:57 AM STORE CONSULTANT Jaqueline Valero MD LAB BLOOD ORDERABLES Final Result Performing Organization Address [facility] de Phone Number [facility] [address] [facility] [place] [address] * (ABNORMAL) Protime-INR (10/26/2023 2:29 AM STORE CONSULTANT) PT 19.4(H) 10.3 - 13.7 sec INR 1.70(H) 0.90 - 1.20 [facility] Comment: Interpretive data Oral anticoagulant therapeutic ranges: Venous thromboembolism prophylaxis or treatment: 2.0-3.0 CARDIOLOGY Standard range: 2.0-3.0 High-intensity range: 2.5-3.5 Refer to indication-specific guidelines for appropriate target ranges for prosthetic heart valve replacement. Current interpretive data was last revised on 2019. Blood 10/26/2023 2:29 AM STORE CONSULTANT 10/26/2023 2:57 AM STORE CONSULTANT Byron Olvera [employer] LAB BLOOD ORDERABLES Fi nal Result Performing Organization Address [facility] Co de Phone Number [facility] [facility] [address] [facility] [place] [address] * Magnesium (10/26/2023 2:29 AM STORE CONSULTANT) [facility] Magnesium 2.2 1.4 - 2.5 mg/dL Blood 10/26/2023 2:29 AM STORE CONSULTANT 10/26/2023 3:11 AM STORE CONSULTANT Byron Olvera TOPPIECE CHOPPER LAB BLOOD ORDERABLES Fi nal Result Performing Organization Address [facility] de Phone Number [facility] [address] [facility] [place] [address] * (ABNORMAL) Renal function panel (10/26/2023 2:29 AM STORE CONSULTANT) [facility] Sodium 124(L) 135 - 145 mmol/L Potassium, pl 4.2 3.3 - 4.9 mmol/L [facility] Chloride 84(L) 97 - 110 mmol/L [facility] CO2 23 22 - 32 mmol/L [facility] Anion gap 17(H) 2 - 15 mmol/L [facility] BUN 85(H) 6 - 25 mg/dL [facility] Creatinine 9.95(H) 0.80 - 1.30 mg/dL [facility] Glucose 206(H) 70 - 199 mg/dL [facility] Comment: Interpretive Data Fasting glucose [...] 2022. Calcium 8.6 8.5 - 10.3 mg/dL [facility] Phosphorus, pl 6.5(H) 2.3 - 4.5 mg/dL [facility] Albumin 3.0(L) 3.5 - 5.0 g/dL [facility] Blood 10/26/2023 2:29 AM STORE CONSULTANT 10/26/2023 3:11 AM STORE CONSULTANT Byron Olvera NP LAB BLOOD ORDERABLES Fi nal Result Performing Organization Address City/[facility]/ZIP Co de Phone Number [facility] [address] [place] [address] * (ABNORMAL) CBC without differential (10/26/2023 2:29 AM STORE CONSULTANT) WBC 7.9 3.8 - 9.9 K/cumm Hgb 7.9(L) 13.0 - 17.5 g/dL [facility] Hct 24.7(L) 38.9 - 50.3 % [facility] Plt 209 150 - 400 K/cumm [facility] MPV 10.6 9.1 - 12.3 fL [facility] RBC 2.64(L) 4.30 - 5.80 M/cumm [facility] MCV 93.6 81.3 - 96.4 fL [facility] MCH 29.9 27.1 - 33.3 pg [facility] MCHC 32.0(L) 32.3 - 35.7 g/dL [facility] RDW CV 15.5(H) 11.1 - 14.9 % [facility] RDW SD 52.4(H) 35.7 - 48.1 fL [facility] NRBC abs 0.00 0.00 - 0.01 K/cumm [facility] Blood 10/26/2023 2:29 AM STORE CONSULTANT 10/26/2023 3:11 AM STORE CONSULTANT Byron Olvera NP LAB BLOOD ORDERABLES Fi nal Result Performing Organization Address City/[facility]/ZIP Co de Phone Number [facility] [address] [place] [address] * (ABNORMAL) aPTT (10/25/2023 9:15 PM STORE CONSULTANT) aPTT 78(H) 28 - 38 sec Comment: Interpretive Data Heparin therapeutic range: 66.0 - 100.0 seconds. Range based on correlation with therapeutic heparin activity range of 0.3 - 0.7 Units/mL. Current interpretive data was last revised on 2023. Blood 10/25/2023 9:15 PM STORE CONSULTANT 10/25/2023 9:19 PM STORE CONSULTANT Jaqueline Valero MD LAB BLOOD ORDERABLES Final Result Performing Organization Address [facility] Co de Phone Number [facility] [address] [facility] [place] [address] * (ABNORMAL) POCT glucose (10/25/2023 9:14 PM STORE CONSULTANT) Glucose, POC 147(H) 70 - 140 mg/dL Comment: For Glucose values <35 mg/dl when Hematocrit is >60 mg/dl,the test may not accurately detect significant hypoglycemia,and testing in the Laboratory should be considered if clinically indicated. Blood 10/25/2023 9:14 PM STORE CONSULTANT 10/25/2023 9:14 PM STORE CONSULTANT Jaqueline Valero MD LAB POCT ORDERABLES - APRIL CE Final Result Performing Organization Address [facility] Co de Phone Number [facility] [address] [facility] [place] [address] * (ABNORMAL) POCT glucose (10/25/2023 4:51 PM STORE CONSULTANT) Glucose, POC 238(H) 70 - 140 mg/dL Comment: For Glucose values <35 mg/dl when Hematocrit is >60 mg/dl,the test may not accurately detect significant hypoglycemia,and testing in the Laboratory should be considered if clinically indicated. Blood 10/25/2023 4:51 PM STORE CONSULTANT 10/25/2023 4:51 PM STORE CONSULTANT Jaqueline Valero MD LAB POCT ORDERABLES - APRIL CE Final Result Performing Organization Address [facility] Co de Phone Number [facility] [address] [facility] [place] [address] * (ABNORMAL) aPTT (10/25/2023 2:48 PM STORE CONSULTANT) aPTT 72(H) 28 - 38 sec Comment: Interpretive Data Heparin therapeutic range: 66.0 - 100.0 seconds. Range based on correlation with therapeutic heparin activity range of 0.3 - 0.7 Units/mL. Current interpretive data was last revised on 2023. Blood 10/25/2023 2:48 PM STORE CONSULTANT 10/25/2023 3:04 PM STORE CONSULTANT Jaqueline Valero MD LAB BLOOD ORDERABLES Final Result Performing Organization Address [facility] de Phone Number [facility] [address] [facility] [place] [address] * (ABNORMAL) POCT glucose (10/25/2023 11:15 AM STORE CONSULTANT) Glucose, POC 208(H) 70 - 140 mg/dL Comment: For Glucose values <35 mg/dl when Hematocrit is >60 mg/dl,the test may not accurately detect significant hypoglycemia,and testing in the Laboratory should be considered if clinically indicated. Blood 10/25/2023 11:1 5 AM STORE CONSULTANT 10/25/2023 11:15 AM STORE CONSULTANT Jaqueline Valero MD LAB POCT ORDERABLES - APRIL CE Final Result Performing Organization Address [facility] Co de Phone Number [facility] [address] [facility] [place] [address] * POCT glucose (10/25/2023 9:49 AM STORE CONSULTANT) Glucose, POC 119 70 - 140 mg/dL Comment: For Glucose values <35 mg/dl when Hematocrit is >60 mg/dl,the test may not accurately detect significant hypoglycemia,and testing in the Laboratory should be considered if clinically indicated. Blood 10/25/2023 9:49 AM STORE CONSULTANT 10/25/2023 9:49 AM STORE CONSULTANT Jaqueline Valero MD LAB POCT ORDERABLES - APRIL CE Final Result Performing Organization Address [facility] Co de Phone Number [facility] [address] [facility] [place] [address] * POCT glucose (10/25/2023 7:36 AM STORE CONSULTANT) Glucose, POC 77 70 - 140 mg/dL [facility] Comment: For Glucose values <35 mg/dl when Hematocrit is >60 mg/dl,the test may not accurately detect significant hypoglycemia,and testing in the Laboratory should be considered if clinically indicated. Blood 10/25/2023 7:36 AM STORE CONSULTANT 10/25/2023 7:36 AM STORE CONSULTANT Jaqueline Valero MD LAB POCT ORDERABLES - APRIL CE Final Result Performing Organization Address [facility] de Phone Number [facility] [address] [place] [address] * XR Chest 1 View - Portable - in AM (10/25/2023 6:52 AM STORE CONSULTANT) Anatomical Region Laterality Modality Body, Chest N/A Computed Radiogr aphy 10/25/2023 11:4 3 AM STORE CONSULTANT Impressions 10/25/2023 1:22 PM STORE CONSULTANT Comparison made to 10/24/2023. ??Sternal fixation wires [...] Arnoldo Abdul M.D. Narrative 10/25/2023 1:22 PM STORE CONSULTANT EXAMINATION: XR CHEST 1 VIEW Procedure Note [...] by: Arnoldo Abdul M.D. us Byron Olvera TOPPIECE CHOPPER IMG XR PROCEDURES Final Result * (ABNORMAL) aPTT (10/25/2023 6:48 AM STORE CONSULTANT) aPTT 65(H) 28 - 38 sec [facility] Comment: Interpretive Data Heparin therapeutic range: 66.0 - 100.0 seconds. Range based on correlation with therapeutic heparin activity range of 0.3 - 0.7 Units/mL. Current interpretive data was last revised on 2023. Blood 10/25/2023 6:48 AM STORE CONSULTANT 10/25/2023 6:58 AM STORE CONSULTANT us Jaqueline Valero MD LAB BLOOD ORDERABLES Final Result [facility] [address] Department [place] [address] * POCT glucose (10/25/2023 4:23 AM STORE CONSULTANT) [facility] Glucose, POC 130 70 - 140 mg/dL [facility] Comment: For Glucose values <35 mg/dl when Hematocrit is >60 mg/dl,the test may not accurately detect significant hypoglycemia,and testing in the Laboratory should be considered if clinically indicated. Blood 10/25/2023 4:23 AM STORE CONSULTANT 10/25/2023 4:23 AM STORE CONSULTANT us Jaqueline Valero MD LAB POCT ORDERABLES - APRIL CE Final Result Performing Organization Address City/State/[facility] Co de Phone Number [facility] [address] Department [place] [address] * eGFR (10/25/2023 12:34 AM STORE CONSULTANT) [facility] eGFR 5 mL/min/1. 73 m2 [facility] Comment: Interpretive Data Reference Interval [...] reviewed 2021. Blood 10/25/2023 12:3 4 AM STORE CONSULTANT 10/25/2023 12:42 AM STORE CONSULTANT Byron Olvera NP LAB BLOOD ORDERABLES Fi nal Result Performing Organization Address [facility] Co de Phone Number [facility] [address] [facility] [place] [address] * Magnesium (10/25/2023 12:34 AM STORE CONSULTANT) Pathologist [facility] Magnesium 2.3 1.4 - 2.5 mg/dL [facility] Blood 10/25/2023 12:3 4 AM STORE CONSULTANT 10/25/2023 12:42 AM STORE CONSULTANT Byron Olvera NP LAB BLOOD ORDERABLES Fi nal Result Performing Organization Address [facility] de Phone Number [facility] [address] [facility] [place] [address] * (ABNORMAL) Renal function panel (10/25/2023 12:34 AM STORE CONSULTANT) Sodium 128(L) 135 - 145 mmol/L [facility] Potassium, pl 4.0 3.3 - 4.9 mmol/L [facility] Chloride 86(L) 97 - 110 mmol/L [facility] CO2 21(L) 22 - 32 mmol/L [facility] Anion gap 21(H) 2 - 15 mmol/L [facility] BUN 86(H) 6 - 25 mg/dL [facility] Creatinine 10.57(H) 0.80 - 1.30 mg/dL [facility] Glucose 97 70 - 199 mg/dL [facility] Comment: Interpretive Data Fasting glucose [...] 2022. Calcium 9.0 8.5 - 10.3 mg/dL [facility] Phosphorus, pl 6.5(H) 2.3 - 4.5 mg/dL [facility] Albumin 2.9(L) 3.5 - 5.0 g/dL [facility] Blood 10/25/2023 12:3 4 AM STORE CONSULTANT 10/25/2023 12:42 AM STORE CONSULTANT Byron Olvera NP LAB BLOOD ORDERABLES Fi nal Result [facility] [address] Department [place] [address] * (ABNORMAL) CBC without differential (10/25/2023 12:34 AM STORE CONSULTANT) WBC 8.2 3.8 - 9.9 K/cumm [facility] Hgb 7.8(L) 13.0 - 17.5 g/dL [facility] Hct 24.7(L) 38.9 - 50.3 % [facility] Plt 202 150 - 400 K/cumm [facility] MPV 10.2 9.1 - 12.3 fL [facility] RBC 2.65(L) 4.30 - 5.80 M/cumm [facility] MCV 93.2 81.3 - 96.4 fL [facility] MCH 29.4 27.1 - 33.3 pg [facility] MCHC 31.6(L) 32.3 - 35.7 g/dL [facility] RDW CV 15.9(H) 11.1 - 14.9 % [facility] RDW SD 53.1(H) 35.7 - 48.1 fL [facility] NRBC abs 0.00 0.00 - 0.01 K/cumm [facility] Blood 10/25/2023 12:3 4 AM STORE CONSULTANT 10/25/2023 12:43 AM STORE CONSULTANT Byron Olvera NP LAB BLOOD ORDERABLES Fi nal Result Performing Organization Address [facility] Co de Phone Number [facility] [address] Department [place] [address] * (ABNORMAL) Protime-INR (10/25/2023 12:33 AM STORE CONSULTANT) PT 18.5(H) 10.3 - 13.7 sec [facility] INR 1.62(H) 0.90 - 1.20 [facility] Comment: Interpretive data Oral anticoagulant therapeutic ranges: Venous thromboembolism prophylaxis or treatment: 2.0-3.0 CARDIOLOGY Standard range: 2.0-3.0 High-intensity range: 2.5-3.5 Refer to indication-specific guidelines for appropriate target ranges for prosthetic heart valve replacement. Current interpretive data was last revised on 2019. Blood 10/25/2023 12:3 3 AM STORE CONSULTANT 10/25/2023 12:40 AM STORE CONSULTANT Jaqueline Valero MD LAB BLOOD ORDERABLES Final Result Performing Organization Address [facility] Co de Phone Number [facility] [address] Department [place] [address] * (ABNORMAL) aPTT (10/25/2023 12:33 AM STORE CONSULTANT) aPTT 58(H) 28 - 38 sec [facility] Comment: Interpretive Data Heparin therapeutic range: 66.0 - 100.0 seconds. Range based on correlation with therapeutic heparin activity range of 0.3 - 0.7 Units/mL. Current interpretive data was last revised on 2023. Blood 10/25/2023 12:3 3 AM STORE CONSULTANT 10/25/2023 12:40 AM STORE CONSULTANT Jaqueline Valero MD LAB BLOOD ORDERABLES Final Result Performing Organization Address [facility] Co de Phone Number [facility] [address] [facility] [place], [place] [id number] * POCT glucose (10/24/2023 9:51 PM STORE CONSULTANT) Glucose, POC 130 70 - 140 mg/dL [facility] Comment: For Glucose values <35 mg/dl when Hematocrit is >60 mg/dl,the test may not accurately detect significant hypoglycemia,and testing in the Laboratory should be considered if clinically indicated. Blood 10/24/2023 9:51 PM STORE CONSULTANT 10/24/2023 9:51 PM STORE CONSULTANT Jaqueline Valero MD LAB POCT ORDERABLES - APRIL CE Final Result Performing Organization Address [facility] Co de Phone Number [facility] [address] [facility] [place], [place] [id number] * (ABNORMAL) aPTT (10/24/2023 5:15 PM STORE CONSULTANT) aPTT 45(H) 28 - 38 sec [facility] Comment: Interpretive Data Heparin therapeutic range: 66.0 - 100.0 seconds. Range based on correlation with therapeutic heparin activity range of 0.3 - 0.7 Units/mL. Current interpretive data was last revised on 2023. Blood 10/24/2023 5:15 PM STORE CONSULTANT 10/24/2023 5:15 PM STORE CONSULTANT us Jaqueline Valero MD LAB BLOOD ORDERABLES Final Result Performing Organization Address [facility] Co de Phone Number [facility] [address] [facility] [place], [place] [id number] * (ABNORMAL) POCT glucose (10/24/2023 4:42 PM STORE CONSULTANT) Glucose, POC 149(H) 70 - 140 mg/dL [facility] Comment: For Glucose values <35 mg/dl when Hematocrit is >60 mg/dl,the test may not accurately detect significant hypoglycemia,and testing in the Laboratory should be considered if clinically indicated. Blood 10/24/2023 4:42 PM STORE CONSULTANT 10/24/2023 4:42 PM STORE CONSULTANT Jaqueline Valero MD LAB POCT ORDERABLES - APRIL CE Final Result Performing Organization Address [facility] de Phone Number [facility] [address] [place] [address] * POCT glucose (10/24/2023 12:17 PM STORE CONSULTANT) Glucose, POC 118 70 - 140 mg/dL [facility] Comment: For Glucose values <35 mg/dl when Hematocrit is >60 mg/dl,the test may not accurately detect significant hypoglycemia,and testing in the Laboratory should be considered if clinically indicated. Blood 10/24/2023 12:1 7 PM STORE CONSULTANT 10/24/2023 12:17 PM STORE CONSULTANT Jaqueline Valero MD LAB POCT ORDERABLES - APRIL CE Final Result Performing Organization Address [facility] de Phone Number [facility] [address] [place] [address] * (ABNORMAL) POCT glucose (10/24/2023 7:44 AM STORE CONSULTANT) Glucose, POC 202(H) 70 - 140 mg/dL [facility] Comment: For Glucose values <35 mg/dl when Hematocrit is >60 mg/dl,the test may not accurately detect significant hypoglycemia,and testing in the Laboratory should be considered if clinically indicated. Blood 10/24/2023 7:44 AM STORE CONSULTANT 10/24/2023 7:44 AM STORE CONSULTANT Jaqueline Valero MD LAB POCT ORDERABLES - APRIL CE Final Result Performing Organization Address [facility] de Phone Number [facility] [address] [place] [id number] * XR Chest 1 View - Portable - in AM (10/24/2023 5:54 AM STORE CONSULTANT) Anatomical Region Laterality Modality Body, Chest N/A Computed Radiogr aphy 10/24/2023 10:3 4 AM STORE CONSULTANT Impressions 10/24/2023 10:34 AM STORE CONSULTANT Comparison is made to single view chest [...] Tania Malone M.D. Narrative 10/24/2023 10:34 AM STORE CONSULTANT EXAMINATION: 1 view chest radiograph Procedure Note [...] signed by: Tania Malone M.D. Byron Olvera TOPPIECE CHOPPER IMG XR PROCEDURES Final Result * eGFR (10/24/2023 1:03 AM STORE CONSULTANT) eGFR 5 mL/min/1. 73 m2 [facility] Comment: Interpretive Data Reference Interval Normal ?>/= [...] last reviewed 2021. Blood 10/24/2023 1:03 AM STORE CONSULTANT 10/24/2023 1:13 AM STORE CONSULTANT us Byron Olvera NP LAB BLOOD ORDERABLES Fi nal Result [facility] [address] [place] [address] * (ABNORMAL) Protime-INR (10/24/2023 1:03 AM STORE CONSULTANT) PT 18.2(H) 10.3 - 13.7 sec [facility] INR 1.60(H) 0.90 - 1.20 [facility] Comment: Interpretive data Oral anticoagulant therapeutic ranges: Venous thromboembolism prophylaxis or treatment: 2.0-3.0 CARDIOLOGY Standard range: 2.0-3.0 High-intensity range: 2.5-3.5 Refer to indication-specific guidelines for appropriate target ranges for prosthetic heart valve replacement. Current interpretive data was last revised on 2019. Blood 10/24/2023 1:03 AM STORE CONSULTANT 10/24/2023 1:13 AM STORE CONSULTANT Byron Olvera NP LAB BLOOD ORDERABLES Fi nal Result Performing Organization Address City/[facility]/ZIP Co de Phone Number [facility] [address] [place] [address] * Magnesium (10/24/2023 1:03 AM STORE CONSULTANT) Pathologist [facility] Magnesium 2.2 1.4 - 2.5 mg/dL [facility] Blood 10/24/2023 1:03 AM STORE CONSULTANT 10/24/2023 1:13 AM STORE CONSULTANT Byron Rudi Olvera NP LAB BLOOD ORDERABLES Fi nal Result Performing Organization Address [facility] Co de Phone Number [facility] [address] [place] [address] * (ABNORMAL) Renal function panel (10/24/2023 1:03 AM STORE CONSULTANT) Sodium 127(L) 135 - 145 mmol/L [facility] Potassium, pl 4.2 3.3 - 4.9 mmol/L [facility] Chloride 86(L) 97 - 110 mmol/L [facility] CO2 21(L) 22 - 32 mmol/L [facility] Anion gap 20(H) 2 - 15 mmol/L [facility] BUN 90(H) 6 - 25 mg/dL [facility] Creatinine 11.24(H) 0.80 - 1.30 mg/dL [facility] Glucose 143 70 - 199 mg/dL [facility] Comment: Interpretive Data Fasting glucose [...] 2022. Calcium 8.6 8.5 - 10.3 mg/dL [facility] Phosphorus, pl 6.1(H) 2.3 - 4.5 mg/dL [facility] Albumin 2.7(L) 3.5 - 5.0 g/dL [facility] Blood 10/24/2023 1:03 AM STORE CONSULTANT 10/24/2023 1:13 AM STORE CONSULTANT Byron Olvera NP LAB BLOOD ORDERABLES Fi nal Result Performing Organization Address City/[facility]/ZIP Co de Phone Number [facility] [address] [place] [address] * (ABNORMAL) CBC without differential (10/24/2023 1:03 AM STORE CONSULTANT) WBC 9.3 3.8 - 9.9 K/cumm [facility] Hgb 7.6(L) 13.0 - 17.5 g/dL [facility] Hct 24.4(L) 38.9 - 50.3 % [facility] Plt 184 150 - 400 K/cumm [facility] MPV 10.5 9.1 - 12.3 fL [facility] RBC 2.58(L) 4.30 - 5.80 M/cumm [facility] MCV 94.6 81.3 - 96.4 fL [facility] MCH 29.5 27.1 - 33.3 pg [facility] MCHC 31.1(L) 32.3 - 35.7 g/dL [facility] RDW CV 15.9(H) 11.1 - 14.9 % [facility] RDW SD 53.1(H) 35.7 - 48.1 fL [facility] NRBC abs 0.00 0.00 - 0.01 K/cumm [facility] Blood 10/24/2023 1:03 AM STORE CONSULTANT 10/24/2023 1:13 AM STORE CONSULTANT Byron Olvera NP LAB BLOOD ORDERABLES Fi nal Result [facility] [address] [employer] [place], [place] [id number] * POCT glucose (10/23/2023 11:14 PM STORE CONSULTANT) Glucose, POC 128 70 - 140 mg/dL [facility] Comment: For Glucose values <35 mg/dl when Hematocrit is >60 mg/dl,the test may not accurately detect significant hypoglycemia,and testing in the Laboratory should be considered if clinically indicated. Blood 10/23/2023 11:1 4 PM STORE CONSULTANT 10/23/2023 11:14 PM STORE CONSULTANT Jaqueline Valero MD LAB POCT ORDERABLES - APRIL CE Final Result Performing Organization Address [facility] Co de Phone Number [facility] [address] [facility] [place] [address] * POCT glucose (10/23/2023 10:43 PM STORE CONSULTANT) Glucose, POC 92 70 - 140 mg/dL [facility] Comment: For Glucose values <35 mg/dl when Hematocrit is >60 mg/dl,the test may not accurately detect significant hypoglycemia,and testing in the Laboratory should be considered if clinically indicated. Blood 10/23/2023 10:4 3 PM STORE CONSULTANT 10/23/2023 10:43 PM STORE CONSULTANT Jaqueline Valero MD LAB POCT ORDERABLES - APRIL CE Final Result Performing Organization Address [facility] Co de Phone Number [facility] [address] [facility] [place] [address] * POCT glucose (10/23/2023 5:12 PM STORE CONSULTANT) Glucose, POC 113 70 - 140 mg/dL [facility] Comment: For Glucose values <35 mg/dl when Hematocrit is >60 mg/dl,the test may not accurately detect significant hypoglycemia,and testing in the Laboratory should be considered if clinically indicated. Blood 10/23/2023 5:12 PM STORE CONSULTANT 10/23/2023 5:12 PM STORE CONSULTANT Jaqueline Valero MD LAB POCT ORDERABLES - APRIL CE Final Result Performing Organization Address [facility] de Phone Number [facility] [address] [facility] [place], [place] [id number] * (ABNORMAL) POCT glucose (10/23/2023 12:08 PM STORE CONSULTANT) Glucose, POC 203(H) 70 - 140 mg/dL [facility] Comment: For Glucose values <35 mg/dl when Hematocrit is >60 mg/dl,the test may not accurately detect significant hypoglycemia,and testing in the Laboratory should be considered if clinically indicated. Blood 10/23/2023 12:0 8 PM STORE CONSULTANT 10/23/2023 12:08 PM STORE CONSULTANT Jaqueline Valero MD LAB POCT ORDERABLES - APRIL CE Final Result Performing Organization Address [facility] de Phone Number [facility] [address] [facility] [facility] [place] [address] * (ABNORMAL) POCT glucose (10/23/2023 7:54 AM STORE CONSULTANT) Glucose, POC 205(H) 70 - 140 mg/dL [facility] Comment: For Glucose values <35 mg/dl when Hematocrit is >60 mg/dl,the test may not accurately detect significant hypoglycemia,and testing in the Laboratory should be considered if clinically indicated. Blood 10/23/2023 7:54 AM STORE CONSULTANT 10/23/2023 7:54 AM STORE CONSULTANT Jaqueline Valero MD LAB POCT ORDERABLES - APRIL CE Final Result Performing Organization Address [facility] Co de Phone Number [facility] [address] [facility] [place] [address] * XR Chest 1 View - Portable - in AM (10/23/2023 6:24 AM STORE CONSULTANT) Anatomical Region Laterality Modality Body, Chest N/A Computed Radiogr aphy 10/23/2023 7:12 AM STORE CONSULTANT Impressions 10/23/2023 7:12 AM STORE CONSULTANT Comparison is made to 10/22/2023. ??There are [...] Manuel Bruno M.D. Narrative 10/23/2023 7:12 AM STORE CONSULTANT Examination: Chest one view Procedure Note Manuel [...] Final Result * eGFR (10/23/2023 1:53 AM STORE CONSULTANT) eGFR 5 mL/min/1. 73 m2 [facility] Comment: Interpretive Data Reference Interval Normal ?>/= [...] last reviewed 2021. Blood 10/23/2023 1:53 AM STORE CONSULTANT 10/23/2023 2:08 AM STORE CONSULTANT Byron Olvera NP LAB BLOOD ORDERABLES Fi nal Result Performing Organization Address [facility] de Phone Number [facility] [address] [place] [address] * (ABNORMAL) Protime-INR (10/23/2023 1:53 AM STORE CONSULTANT) PT 24.9(H) 10.3 - 13.7 sec [facility] INR 2.18(H) 0.90 - 1.20 [facility] Comment: Interpretive data Oral anticoagulant therapeutic ranges: Venous thromboembolism prophylaxis or treatment: 2.0-3.0 CARDIOLOGY Standard range: 2.0-3.0 High-intensity range: 2.5-3.5 Refer to indication-specific guidelines for appropriate target ranges for prosthetic heart valve replacement. Current interpretive data was last revised on 2019. Blood 10/23/2023 1:53 AM STORE CONSULTANT 10/23/2023 2:08 AM STORE CONSULTANT Byron Olvera NP LAB BLOOD ORDERABLES Fi nal Result Performing Organization Address [facility] de Phone Number [facility] [address] Department [place] [address] * Magnesium (10/23/2023 1:53 AM STORE CONSULTANT) Pathologist [facility] Magnesium 2.4 1.4 - 2.5 mg/dL [facility] Blood 10/23/2023 1:53 AM STORE CONSULTANT 10/23/2023 2:08 AM STORE CONSULTANT Byron Olvera NP LAB BLOOD ORDERABLES Fi nal Result [facility] [address] Department [place] [address] * (ABNORMAL) Renal function panel (10/23/2023 1:53 AM STORE CONSULTANT) Pathologist [facility] Sodium 132(L) 135 - 145 mmol/L [facility] Potassium, pl 4.3 3.3 - 4.9 mmol/L [facility] Chloride 91(L) 97 - 110 mmol/L [facility] CO2 20(L) 22 - 32 mmol/L [facility] Anion gap 21(H) 2 - 15 mmol/L [facility] BUN 91(H) 6 - 25 mg/dL [facility] Creatinine 11.59(H) 0.80 - 1.30 mg/dL [facility] Glucose 176 70 - 199 mg/dL [facility] Comment: Interpretive Data Fasting glucose [...] 2022. Calcium 9.0 8.5 - 10.3 mg/dL [facility] Phosphorus, pl 6.2(H) 2.3 - 4.5 mg/dL [facility] Albumin 2.6(L) 3.5 - 5.0 g/dL [facility] Blood 10/23/2023 1:53 AM STORE CONSULTANT 10/23/2023 2:08 AM STORE CONSULTANT Byron Olvera NP LAB BLOOD ORDERABLES Fi nal Result Performing Organization Address [facility] Co de Phone Number [facility] [address] Department [facility] [place], [place] [id number] * (ABNORMAL) CBC without differential (10/23/2023 1:53 AM STORE CONSULTANT) Pathologist [facility] WBC 11.7(H) 3.8 - 9.9 K/cumm [facility] Hgb 8.5(L) 13.0 - 17.5 g/dL [facility] Hct 27.3(L) 38.9 - 50.3 % [facility] Plt 207 150 - 400 K/cumm [facility] MPV 10.5 9.1 - 12.3 fL [facility] RBC 2.86(L) 4.30 - 5.80 M/cumm [facility] MCV 95.5 81.3 - 96.4 fL [facility] MCH 29.7 27.1 - 33.3 pg [facility] MCHC 31.1(L) 32.3 - 35.7 g/dL [facility] RDW CV 15.9(H) 11.1 - 14.9 % [facility] RDW SD 53.6(H) 35.7 - 48.1 fL [facility] NRBC abs 0.00 0.00 - 0.01 K/cumm [facility] Blood 10/23/2023 1:53 AM STORE CONSULTANT 10/23/2023 2:08 AM STORE CONSULTANT Byron Olvera NP LAB BLOOD ORDERABLES Fi nal Result Performing Organization Address [facility] Co de Phone Number [facility] [address] Department [facility] [place], [place] [id number] * (ABNORMAL) POCT glucose (10/22/2023 11:55 PM STORE CONSULTANT) Glucose, POC 142(H) 70 - 140 mg/dL [facility] Comment: For Glucose values <35 mg/dl when Hematocrit is >60 mg/dl,the test may not accurately detect significant hypoglycemia,and testing in the Laboratory should be considered if clinically indicated. Blood 10/22/2023 11:5 5 PM STORE CONSULTANT 10/22/2023 11:55 PM STORE CONSULTANT Result [facility] Jaqueline Valero MD LAB POCT ORDERABLES - APRIL CE Final Result Performing Organization Address [facility] de Phone Number [facility] [address] [facility] [place] [address] * (ABNORMAL) POCT glucose (10/22/2023 9:12 PM STORE CONSULTANT) Glucose, POC 161(H) 70 - 140 mg/dL [facility] Comment: For Glucose values <35 mg/dl when Hematocrit is >60 mg/dl,the test may not accurately detect significant hypoglycemia,and testing in the Laboratory should be considered if clinically indicated. Blood 10/22/2023 9:12 PM STORE CONSULTANT 10/22/2023 9:12 PM STORE CONSULTANT Result [facility] Jaqueline Valero MD LAB POCT ORDERABLES - APRIL CE Final Result Performing Organization Address [facility] de Phone Number [facility] [address] [facility] [place] [address] * POCT glucose (10/22/2023 5:22 PM STORE CONSULTANT) Glucose, POC 102 70 - 140 mg/dL [facility] Comment: For Glucose values <35 mg/dl when Hematocrit is >60 mg/dl,the test may not accurately detect significant hypoglycemia,and testing in the Laboratory should be considered if clinically indicated. Blood 10/22/2023 5:22 PM STORE CONSULTANT 10/22/2023 5:22 PM STORE CONSULTANT Result [facility] Jaqueline Valero MD LAB POCT ORDERABLES - APRIL CE Final Result Performing Organization Address [facility] Co de Phone Number [facility] [address] [facility] [place] [address] * (ABNORMAL) POCT glucose (10/22/2023 12:49 PM STORE CONSULTANT) Glucose, POC 177(H) 70 - 140 mg/dL [facility] Comment: For Glucose values <35 mg/dl when Hematocrit is >60 mg/dl,the test may not accurately detect significant hypoglycemia,and testing in the Laboratory should be considered if clinically indicated. Blood 10/22/2023 12:4 9 PM STORE CONSULTANT 10/22/2023 12:49 PM STORE CONSULTANT Jaqueline Valero MD LAB POCT ORDERABLES - APRIL CE Final Result Performing Organization Address [facility] de Phone Number [facility] [address] [facility] [place] [address] * (ABNORMAL) POCT glucose (10/22/2023 8:12 AM STORE CONSULTANT) Glucose, POC 158(H) 70 - 140 mg/dL [facility] Comment: For Glucose values <35 mg/dl when Hematocrit is >60 mg/dl,the test may not accurately detect significant hypoglycemia,and testing in the Laboratory should be considered if clinically indicated. Blood 10/22/2023 8:12 AM STORE CONSULTANT 10/22/2023 8:12 AM STORE CONSULTANT Jaqueline Valero MD LAB POCT ORDERABLES - APRIL CE Final Result Performing Organization Address [facility] Co de Phone Number [facility] [address] [place] [address] * XR Chest 1 View - Portable - in AM (10/22/2023 6:38 AM STORE CONSULTANT) Anatomical Region Laterality Modality Body, Chest N/A Computed Radiogr aphy 10/22/2023 8:02 AM STORE CONSULTANT Impressions 10/22/2023 8:02 AM STORE CONSULTANT Comparison is made to single view chest radiograph dated 10/21/2023. ??Sternotomy wires and sternal plates are unchanged. Right internal jugular central venous catheter tip overlies the superior vena cava. Persistent small lung volumes with bilateral subsegmental atelectasis. ??Trace left pleural effusion. ??No pneumothorax. Cardiomediastinal silhouette is stable. Electronically signed by: Tania Malone M.D. Narrative 10/22/2023 8:02 AM STORE CONSULTANT EXAMINATION: 1 view chest radiograph Procedure Note [...] signed by: Tania Malone M.D. Byron Olvera [employer] IMG XR PROCEDURES Final Result * eGFR (10/22/2023 12:31 AM STORE CONSULTANT) [facility] Signature eGFR 5 mL/min/1. 73 m2 [facility] Comment: Interpretive Data Reference Interval [...] reviewed 2021. Blood 10/22/2023 12:3 1 AM STORE CONSULTANT 10/22/2023 1:00 AM STORE CONSULTANT Byron Olvera NP LAB BLOOD ORDERABLES Fi nal Result Performing Organization Address [facility] de Phone Number [facility] [address] [place] [address] * (ABNORMAL) Protime-INR (10/22/2023 12:31 AM STORE CONSULTANT) PT 48.4(H) 10.3 - 13.7 sec [facility] INR 4.25(H) 0.90 - 1.20 [facility] Comment: Interpretive data Oral anticoagulant therapeutic ranges: Venous thromboembolism prophylaxis or treatment: 2.0-3.0 CARDIOLOGY Standard range: 2.0-3.0 High-intensity range: 2.5-3.5 Refer to indication-specific guidelines for appropriate target ranges for prosthetic heart valve replacement. Current interpretive data was last revised on 2019. Blood 10/22/2023 12:3 1 AM STORE CONSULTANT 10/22/2023 1:00 AM STORE CONSULTANT Byron Olvera NP LAB BLOOD ORDERABLES Fi nal Result Performing Organization Address [facility] Co de Phone Number [facility] [address] [place], [place] [id number] * Magnesium (10/22/2023 12:31 AM STORE CONSULTANT) Magnesium 2.4 1.4 - 2.5 mg/dL [facility] Blood 10/22/2023 12:3 1 AM STORE CONSULTANT 10/22/2023 1:00 AM STORE CONSULTANT Byron Olvera [employer] LAB BLOOD ORDERABLES Fi nal Result [facility] [address] Department [place] [address] * (ABNORMAL) Renal function panel (10/22/2023 12:31 AM STORE CONSULTANT) Pathologist [facility] Sodium 134(L) 135 - 145 mmol/L [facility] Potassium, pl 4.3 3.3 - 4.9 mmol/L [facility] Chloride 93(L) 97 - 110 mmol/L [facility] CO2 21(L) 22 - 32 mmol/L [facility] Anion gap 20(H) 2 - 15 mmol/L [facility] BUN 87(H) 6 - 25 mg/dL [facility] Creatinine 11.33(H) 0.80 - 1.30 mg/dL [facility] Glucose 212(H) 70 - 199 mg/dL [facility] Comment: Interpretive Data Fasting glucose [...] 2022. Calcium 8.8 8.5 - 10.3 mg/dL [facility] Phosphorus, pl 7.3(H) 2.3 - 4.5 mg/dL [facility] Albumin 2.8(L) 3.5 - 5.0 g/dL [facility] Blood 10/22/2023 12:3 1 AM STORE CONSULTANT 10/22/2023 1:00 AM STORE CONSULTANT Byron Olvera NP LAB BLOOD ORDERABLES Fi nal Result Performing Organization Address [facility]/ZIP Co de Phone Number [facility] [address] [place] [place] [address] * (ABNORMAL) CBC without differential (10/22/2023 12:31 AM STORE CONSULTANT) Pathologist [facility] WBC 10.6(H) 3.8 - 9.9 K/cumm [facility] Hgb 8.5(L) 13.0 - 17.5 g/dL [facility] Hct 27.2(L) 38.9 - 50.3 % [facility] Plt 201 150 - 400 K/cumm [facility] MPV 11.2 9.1 - 12.3 fL [facility] RBC 2.88(L) 4.30 - 5.80 M/cumm [facility] MCV 94.4 81.3 - 96.4 fL [facility] MCH 29.5 27.1 - 33.3 pg [facility] MCHC 31.3(L) 32.3 - 35.7 g/dL [facility] RDW CV 15.8(H) 11.1 - 14.9 % [facility] RDW SD 54.0(H) 35.7 - 48.1 fL [facility] NRBC abs 0.02(H) 0.00 - 0.01 K/cumm [facility] Blood 10/22/2023 12:3 1 AM STORE CONSULTANT 10/22/2023 1:00 AM STORE CONSULTANT Byron Olvera NP LAB BLOOD ORDERABLES Fi nal Result Performing Organization Address City/[facility]/ZIP Co de Phone Number [facility] [address] [place] [address] * (ABNORMAL) POCT glucose (10/21/2023 9:31 PM STORE CONSULTANT) Pathologist [facility] Glucose, POC 249(H) 70 - 140 mg/dL [facility] Comment: For Glucose values <35 mg/dl when Hematocrit is >60 mg/dl,the test may not accurately detect significant hypoglycemia,and testing in the Laboratory should be considered if clinically indicated. Blood 10/21/2023 9:31 PM STORE CONSULTANT 10/21/2023 9:31 PM STORE CONSULTANT Jaqueline Valero MD LAB POCT ORDERABLES - APRIL CE Final Result Performing Organization Address [facility] de Phone Number [facility] [address] [facility] [place] [address] * (ABNORMAL) POCT glucose (10/21/2023 5:16 PM STORE CONSULTANT) Glucose, POC 166(H) 70 - 140 mg/dL [facility] Comment: For Glucose values <35 mg/dl when Hematocrit is >60 mg/dl,the test may not accurately detect significant hypoglycemia,and testing in the Laboratory should be considered if clinically indicated. Blood 10/21/2023 5:16 PM STORE CONSULTANT 10/21/2023 5:16 PM STORE CONSULTANT Jaqueline Valero MD LAB POCT ORDERABLES - APRIL CE Final Result Performing Organization Address [facility] de Phone Number [facility] [address] [place] [address] * (ABNORMAL) POCT glucose (10/21/2023 12:29 PM STORE CONSULTANT) Glucose, POC 266(H) 70 - 140 mg/dL [facility] Comment: For Glucose values <35 mg/dl when Hematocrit is >60 mg/dl,the test may not accurately detect significant hypoglycemia,and testing in the Laboratory should be considered if clinically indicated. Blood 10/21/2023 12:2 9 PM STORE CONSULTANT 10/21/2023 12:29 PM STORE CONSULTANT Jaqueline Valero MD LAB POCT ORDERABLES - APRIL CE Final Result Performing Organization Address [facility] Co de Phone Number [facility] [address] [place] [address] * (ABNORMAL) POCT glucose (10/21/2023 8:06 AM STORE CONSULTANT) Glucose, POC 294(H) 70 - 140 mg/dL [facility] Comment: For Glucose values <35 mg/dl when Hematocrit is >60 mg/dl,the test may not accurately detect significant hypoglycemia,and testing in the Laboratory should be considered if clinically indicated. Blood 10/21/2023 8:06 AM STORE CONSULTANT 10/21/2023 8:06 AM STORE CONSULTANT us Jaqueline Valero MD LAB POCT ORDERABLES - APRIL CE Final Result [facility] [address] [place] [address] * XR Chest 1 View - Portable - in AM (10/21/2023 6:51 AM STORE CONSULTANT) Anatomical Region Laterality Modality Body, Chest N/A Computed Radiogr aphy 10/21/2023 7:17 AM STORE CONSULTANT Impressions 10/21/2023 7:17 AM STORE CONSULTANT Small left effusion and bilateral lower lobe atelectasis. Electronically signed by: Eric Cuevas M.D. Narrative 10/21/2023 7:17 AM STORE CONSULTANT EXAMINATION: XR CHEST 1 VIEW DATE: 10/21/2023 [...] by: Eric Cuevas M.D. us Byron Olvera [employer] IMG XR PROCEDURES Final Result * ECG 12 lead (10/21/2023 4:39 AM STORE CONSULTANT) 10/21/2023 4:39 AM STORE CONSULTANT Narrative [facility] - 10/21/2023 8:34 AM STORE CONSULTANT Vent Rate: 100 bpm RR Interval: 599 msec OR Interval: 0 msec QRS Duration: 145 msec QT Interval: 394 msec QTC Interval: 451 msec P-R-T [place]: 0 - -9 - 132 degrees IMPRESSION: NORMAL SINUS RHYTHM [REASON: NORMAL P AXIS, OR, RATE \T\ RHYTHM] LEFT BUNDLE BRANCH BLOCK OCCASIONAL PVC Electronically Signed By: Jesus Huerta MD us Linda Oliva NP ECG ORDERABLES Final Result [facility] [employer] [facility] * eGFR (10/21/2023 1:40 AM STORE CONSULTANT) eGFR 5 mL/min/1. 73 m2 [facility] Comment: Interpretive Data Reference Interval [...] last reviewed 2021. Blood 10/21/2023 1:40 AM STORE CONSULTANT 10/21/2023 1:59 AM STORE CONSULTANT Byron Olvera NP LAB BLOOD ORDERABLES Fi nal Result Performing Organization Address [facility] Co de Phone Number [facility] [address] [place] [address] * (ABNORMAL) Protime-INR (10/21/2023 1:40 AM STORE CONSULTANT) PT 54.3(H) 10.3 - 13.7 sec [facility] INR 4.76(H) 0.90 - 1.20 [facility] Comment: Interpretive data Oral anticoagulant therapeutic ranges: Venous thromboembolism prophylaxis or treatment: 2.0-3.0 CARDIOLOGY Standard range: 2.0-3.0 High-intensity range: 2.5-3.5 Refer to indication-specific guidelines for appropriate target ranges for prosthetic heart valve replacement. Current interpretive data was last revised on 2019. Blood 10/21/2023 1:40 AM STORE CONSULTANT 10/21/2023 1:58 AM STORE CONSULTANT Byron Olvera NP LAB BLOOD ORDERABLES Fi nal Result Performing Organization Address [facility] Co de Phone Number [facility] [address] [place] [place] [address] * Magnesium (10/21/2023 1:40 AM STORE CONSULTANT) Magnesium 2.4 1.4 - 2.5 mg/dL [facility] Blood 10/21/2023 1:40 AM STORE CONSULTANT 10/21/2023 1:59 AM STORE CONSULTANT Byron Olvera NP LAB BLOOD ORDERABLES Fi nal Result [facility] [address] [place] [address] * (ABNORMAL) Renal function panel (10/21/2023 1:40 AM STORE CONSULTANT) Pathologist [facility] Sodium 134(L) 135 - 145 mmol/L [facility] Potassium, pl 4.5 3.3 - 4.9 mmol/L [facility] Chloride 93(L) 97 - 110 mmol/L [facility] CO2 22 22 - 32 mmol/L [facility] Anion gap 19(H) 2 - 15 mmol/L [facility] BUN 81(H) 6 - 25 mg/dL [facility] Creatinine 11.40(H) 0.80 - 1.30 mg/dL [facility] Glucose 289(H) 70 - 199 mg/dL [facility] Comment: Interpretive Data Fasting glucose [...] 2022. Calcium 8.6 8.5 - 10.3 mg/dL [facility] Phosphorus, pl 8.2(H) 2.3 - 4.5 mg/dL [facility] Albumin 2.7(L) 3.5 - 5.0 g/dL [facility] Blood 10/21/2023 1:40 AM STORE CONSULTANT 10/21/2023 1:59 AM STORE CONSULTANT Byron Olvera NP LAB BLOOD ORDERABLES Fi nal Result Performing Organization Address [facility] Co de Phone Number [facility] [address] [place] [address] * (ABNORMAL) CBC without differential (10/21/2023 1:40 AM STORE CONSULTANT) [facility] WBC 8.2 3.8 - 9.9 K/cumm [facility] Hgb 8.0(L) 13.0 - 17.5 g/dL [facility] Hct 25.6(L) 38.9 - 50.3 % [facility] Plt 185 150 - 400 K/cumm [facility] MPV 11.1 9.1 - 12.3 fL [facility] RBC 2.72(L) 4.30 - 5.80 M/cumm [facility] MCV 94.1 81.3 - 96.4 fL [facility] MCH 29.4 27.1 - 33.3 pg [facility] MCHC 31.3(L) 32.3 - 35.7 g/dL [facility] RDW CV 16.5(H) 11.1 - 14.9 % [facility] RDW SD 55.9(H) 35.7 - 48.1 fL [facility] NRBC abs 0.02(H) 0.00 - 0.01 K/cumm [facility] Blood 10/21/2023 1:40 AM STORE CONSULTANT 10/21/2023 1:59 AM STORE CONSULTANT Byron Olvera NP LAB BLOOD ORDERABLES Fi nal Result Performing Organization Address [facility] Co de Phone Number [facility] [address] [place] [address] * (ABNORMAL) POCT glucose (10/20/2023 9:24 PM STORE CONSULTANT) [facility] Glucose, POC 234(H) 70 - 140 mg/dL [facility] Comment: For Glucose values <35 mg/dl when Hematocrit is >60 mg/dl,the test may not accurately detect significant hypoglycemia,and testing in the Laboratory should be considered if clinically indicated. Blood 10/20/2023 9:24 PM STORE CONSULTANT 10/20/2023 9:24 PM STORE CONSULTANT Jaqueline Valero MD LAB POCT ORDERABLES - APRIL CE Final Result Performing Organization Address [facility] Co de Phone Number [facility] [address] [place] [address] * POCT glucose (10/20/2023 5:24 PM STORE CONSULTANT) [facility] Glucose, POC 89 70 - 140 mg/dL [facility] Comment: For Glucose values <35 mg/dl when Hematocrit is >60 mg/dl,the test may not accurately detect significant hypoglycemia,and testing in the Laboratory should be considered if clinically indicated. Blood 10/20/2023 5:24 PM STORE CONSULTANT 10/20/2023 5:24 PM STORE CONSULTANT Jaqueline Valero MD LAB POCT ORDERABLES - APRIL CE Final Result Performing Organization Address [facility] de Phone Number [facility] [address] [place] [address] * Critical Care (10/20/2023 12:45 PM STORE CONSULTANT) Narrative Kirsten Burns MD - 10/20/2023 12:45 PM STORE CONSULTANT Byron Olvera NP ? 10/21/2023 10:22 AM Critical Care Performed by: Byron Olvera NP Authorized by: Byron Olvera NP ?? CRITICAL CARE: ??Team: ??[facility] [facility] [address] ??Shift: ??AM ??Level of Billing: ??Subsequent [...] plan with the patient's team and other medical/government operations consultant staff. This time was in addition to and separate from care provided by other practitioners on this day of service. ?? Byron Olvera [facility] [facility] IN CLINIC/BEDSIDE ORDER ROVERTO Final Result * POCT glucose (10/20/2023 11:47 AM STORE CONSULTANT) Glucose, POC 115 70 - 140 mg/dL [facility] Comment: For Glucose values <35 mg/dl when Hematocrit is >60 mg/dl,the test may not accurately detect significant hypoglycemia,and testing in the Laboratory should be considered if clinically indicated. Blood 10/20/2023 11:4 7 AM STORE CONSULTANT 10/20/2023 11:47 AM STORE CONSULTANT Jaqueline Valero MD LAB POCT ORDERABLES - APRIL CE Final Result Performing Organization Address [facility] Co de Phone Number [facility] [address] [facility] [place], [place] [id number] * POCT glucose (10/20/2023 10:09 AM STORE CONSULTANT) Glucose, POC 87 70 - 140 mg/dL [facility] Comment: For Glucose values <35 mg/dl when Hematocrit is >60 mg/dl,the test may not accurately detect significant hypoglycemia,and testing in the Laboratory should be considered if clinically indicated. Blood 10/20/2023 10:0 9 AM STORE CONSULTANT 10/20/2023 10:09 AM STORE CONSULTANT Jaqueline Valero MD LAB POCT ORDERABLES - APRIL CE Final Result Performing Organization Address [facility] Co de Phone Number [facility] [address] [facility] [place] [address] * POCT glucose (10/20/2023 9:15 AM STORE CONSULTANT) Glucose, POC 102 70 - 140 mg/dL [facility] Comment: For Glucose values <35 mg/dl when Hematocrit is >60 mg/dl,the test may not accurately detect significant hypoglycemia,and testing in the Laboratory should be considered if clinically indicated. Blood 10/20/2023 9:15 AM STORE CONSULTANT 10/20/2023 9:15 AM STORE CONSULTANT Jaqueline Valero MD LAB POCT ORDERABLES - APRIL CE Final Result Performing Organization Address [facility] Co de Phone Number [facility] [address] Department [place] [address] * POCT glucose (10/20/2023 7:23 AM STORE CONSULTANT) [facility] Glucose, POC 109 70 - 140 mg/dL [facility] Comment: For Glucose values <35 mg/dl when Hematocrit is >60 mg/dl,the test may not accurately detect significant hypoglycemia,and testing in the Laboratory should be considered if clinically indicated. Blood 10/20/2023 7:23 AM STORE CONSULTANT 10/20/2023 7:23 AM STORE CONSULTANT Jaqueline Valero MD LAB POCT ORDERABLES - APRIL CE Final Result Performing Organization Address [facility] de Phone Number [facility] [address] [place] [address] * XR Chest 1 View - Portable - in AM (10/20/2023 6:37 AM STORE CONSULTANT) Anatomical Region Laterality Modality Body, Chest N/A Computed Radiogr aphy 10/20/2023 7:51 AM STORE CONSULTANT Impressions 10/20/2023 7:51 AM STORE CONSULTANT Comparison is made to prior chest radiograph(s) [...] Vicki Suh M.D. Narrative 10/20/2023 7:51 AM STORE CONSULTANT EXAMINATION: XR CHEST 1 VIEW Procedure Note [...] signed by: Vicki Suh M.D. Byron Olvera [employer] IMG XR PROCEDURES Final Result * POCT glucose (10/20/2023 6:12 AM STORE CONSULTANT) Glucose, POC 119 70 - 140 mg/dL [facility] Comment: For Glucose values <35 mg/dl when Hematocrit is >60 mg/dl,the test may not accurately detect significant hypoglycemia,and testing in the Laboratory should be considered if clinically indicated. Blood 10/20/2023 6:12 AM STORE CONSULTANT 10/20/2023 6:12 AM STORE CONSULTANT Result [facility] Jaqueline Valero MD LAB POCT ORDERABLES - APRIL CE Final Result Performing Organization Address [facility] Co de Phone Number [facility] [address] [place] [address] * (ABNORMAL) POCT glucose (10/20/2023 3:57 AM STORE CONSULTANT) Glucose, POC 153(H) 70 - 140 mg/dL [facility] Comment: For Glucose values <35 mg/dl when Hematocrit is >60 mg/dl,the test may not accurately detect significant hypoglycemia,and testing in the Laboratory should be considered if clinically indicated. Blood 10/20/2023 3:57 AM STORE CONSULTANT 10/20/2023 3:57 AM STORE CONSULTANT Jaqueline Valero MD LAB POCT ORDERABLES - APRIL CE Final Result Performing Organization Address [facility]/ZIP Co de Phone Number [facility] [address] [place] [address] * Oxyhemoglobin, central venous (10/20/2023 3:22 AM STORE CONSULTANT) [facility] Oxyhemoglobin, CV 70.0 % [facility] Comment: Interpretive Data No reference range established. Current interpretive data was last revised 2019. Blood 10/20/2023 3:22 AM STORE CONSULTANT 10/20/2023 3:26 AM STORE CONSULTANT Gamal Fox [employer] LAB BLOOD ORDERABLES Final Result Performing Organization Address [facility] Co de Phone Number [facility] [address] [place] [address] * (ABNORMAL) aPTT (10/20/2023 3:22 AM STORE CONSULTANT) [facility] aPTT 114(H) 28 - 38 sec [facility] Comment: Interpretive Data Heparin therapeutic range: 66.0 - 100.0 seconds. Range based on correlation with therapeutic heparin activity range of 0.3 - 0.7 Units/mL. Current interpretive data was last revised on 2023. Blood 10/20/2023 3:22 AM STORE CONSULTANT 10/20/2023 3:28 AM STORE CONSULTANT Narrative [facility] - 10/20/2023 4:12 AM STORE CONSULTANT Draw STAT PTT 6 hrs after initiation of heparin infusion, draw STAT PTT 6 hours after each dose change, and every 6 hours until 2 consecutive PTTs are within therapeutic range. Once two consecutive PTT's are therapeutic (66-100 seconds), then draw PTT every AM until heparin is discontinued. Byron Olvera [employer] LAB BLOOD ORDERABLES Fi nal Result Performing Organization Address City/[facility]/ZIP Co de Phone Number [facility] [address] [facility] [place] [address] * (ABNORMAL) POCT glucose (10/20/2023 3:21 AM STORE CONSULTANT) [facility] Glucose, POC 156(H) 70 - 140 mg/dL [facility] Comment: For Glucose values <35 mg/dl when Hematocrit is >60 mg/dl,the test may not accurately detect significant hypoglycemia,and testing in the Laboratory should be considered if clinically indicated. Blood 10/20/2023 3:21 AM STORE CONSULTANT 10/20/2023 3:21 AM STORE CONSULTANT Jaqueline Valero MD LAB POCT ORDERABLES - APRIL CE Final Result Performing Organization Address [facility] de Phone Number [facility] [address] [facility] [place] [address] * (ABNORMAL) POCT glucose (10/20/2023 2:10 AM STORE CONSULTANT) Glucose, POC 164(H) 70 - 140 mg/dL [facility] Comment: For Glucose values <35 mg/dl when Hematocrit is >60 mg/dl,the test may not accurately detect significant hypoglycemia,and testing in the Laboratory should be considered if clinically indicated. Blood 10/20/2023 2:10 AM STORE CONSULTANT 10/20/2023 2:10 AM STORE CONSULTANT Result [facility] Jaqueline Valero MD LAB POCT ORDERABLES - APRIL CE Final Result Performing Organization Address [facility] de Phone Number [facility] [address] [facility] [place] [address] * POCT glucose (10/20/2023 12:57 AM STORE CONSULTANT) Glucose, POC 119 70 - 140 mg/dL [facility] Comment: For Glucose values <35 mg/dl when Hematocrit is >60 mg/dl,the test may not accurately detect significant hypoglycemia,and testing in the Laboratory should be considered if clinically indicated. Blood 10/20/2023 12:5 7 AM STORE CONSULTANT 10/20/2023 12:57 AM STORE CONSULTANT Result [facility] Jaqueline Valero MD LAB POCT ORDERABLES - APRIL CE Final Result Performing Organization Address [facility] Co de Phone Number [facility] [address] Department [place] [address] * eGFR (10/20/2023 12:21 AM STORE CONSULTANT) Pathologist [facility] eGFR 5 mL/min/1. 73 m2 [facility] Comment: Interpretive Data Reference Interval [...] reviewed 2021. Blood 10/20/2023 12:2 1 AM STORE CONSULTANT 10/20/2023 12:43 AM STORE CONSULTANT Dawna Castellanos [employer] LAB BLOOD ORDERABLES Ann Marie l Result Performing Organization Address [facility] Co de Phone Number [facility] [address] Department [place] [address] * Oxyhemoglobin, central venous (10/20/2023 12:21 AM STORE CONSULTANT) [facility] Oxyhemoglobin, CV 51.0 % [facility] Comment: Interpretive Data No reference range established. Current interpretive data was last revised 2019. Blood 10/20/2023 12:2 1 AM STORE CONSULTANT 10/20/2023 12:35 AM STORE CONSULTANT Dawna Castellanos [employer] LAB BLOOD ORDERABLES Ann Marie l Result Performing Organization Address [facility] Co de Phone Number [facility] [address] Department [place] [address] * (ABNORMAL) Protime-INR (10/20/2023 12:21 AM STORE CONSULTANT) Pathologist [facility] PT 25.5(H) 10.3 - 13.7 sec [facility] INR 2.24(H) 0.90 - 1.20 [facility] Comment: Interpretive data Oral anticoagulant therapeutic ranges: Venous thromboembolism prophylaxis or treatment: 2.0-3.0 CARDIOLOGY Standard range: 2.0-3.0 High-intensity range: 2.5-3.5 Refer to indication-specific guidelines for appropriate target ranges for prosthetic heart valve replacement. Current interpretive data was last revised on 2019. Blood 10/20/2023 12:2 1 AM STORE CONSULTANT 10/20/2023 12:43 AM STORE CONSULTANT Byron Olvera [employer] LAB BLOOD ORDERABLES Fi nal Result Performing Organization Address [facility] Co de Phone Number [facility] [address] Department [place] [address] * Magnesium (10/20/2023 12:21 AM STORE CONSULTANT) Pathologist [facility] Magnesium 2.4 1.4 - 2.5 mg/dL [facility] Blood 10/20/2023 12:2 1 AM STORE CONSULTANT 10/20/2023 12:43 AM STORE CONSULTANT Byron Olvera [employer] LAB BLOOD ORDERABLES Fi nal Result Performing Organization Address [facility]/ZIP Co de Phone Number [facility] [address] Department [place] [address] * (ABNORMAL) Calcium, ionized (10/20/2023 12:21 AM STORE CONSULTANT) Pathologist [facility] Calcium, Ionized 4.38(L) 4.50 - 5.10 mg/dL [facility] Blood 10/20/2023 12:2 1 AM STORE CONSULTANT 10/20/2023 12:35 AM STORE CONSULTANT Byron Olvera [employer]PER LAB BLOOD ORDERABLES Fi nal Result Performing Organization Address [facility] Co de Phone Number [facility] [address] [place] [address] * (ABNORMAL) Renal function panel (10/20/2023 12:21 AM STORE CONSULTANT) [facility] Sodium 137 135 - 145 mmol/L [facility] Potassium, pl 4.4 3.3 - 4.9 mmol/L [facility] Chloride 96(L) 97 - 110 mmol/L [facility] CO2 21(L) 22 - 32 mmol/L [facility] Anion gap 20(H) 2 - 15 mmol/L [facility] BUN 77(H) 6 - 25 mg/dL [facility] Creatinine 11.28(H) 0.80 - 1.30 mg/dL [facility] Glucose 105 70 - 199 mg/dL [facility] Comment: Interpretive Data Fasting glucose [...] 2022. Calcium 8.9 8.5 - 10.3 mg/dL [facility] Phosphorus, pl 8.9(H) 2.3 - 4.5 mg/dL [facility] Albumin 2.8(L) 3.5 - 5.0 g/dL [facility] Blood 10/20/2023 12:2 1 AM STORE CONSULTANT 10/20/2023 12:43 AM STORE CONSULTANT Byron Olvera [employer] LAB BLOOD ORDERABLES Fi nal Result Performing Organization Address [facility]/ZIP Co de Phone Number [facility] [address] [place] [place] [address] * (ABNORMAL) CBC without differential (10/20/2023 12:21 AM STORE CONSULTANT) WBC 8.8 3.8 - 9.9 K/cumm [facility] Hgb 8.3(L) 13.0 - 17.5 g/dL [facility] Hct 26.2(L) 38.9 - 50.3 % [facility] Plt 149(L) 150 - 400 K/cumm [facility] MPV 11.1 9.1 - 12.3 fL [facility] RBC 2.76(L) 4.30 - 5.80 M/cumm [facility] MCV 94.9 81.3 - 96.4 fL [facility] MCH 30.1 27.1 - 33.3 pg [facility] MCHC 31.7(L) 32.3 - 35.7 g/dL [facility] RDW CV 16.5(H) 11.1 - 14.9 % [facility] RDW SD 56.3(H) 35.7 - 48.1 fL [facility] NRBC abs 0.00 0.00 - 0.01 K/cumm [facility] Blood 10/20/2023 12:2 1 AM STORE CONSULTANT 10/20/2023 12:43 AM STORE CONSULTANT Byron Olvera NP LAB BLOOD ORDERABLES Fi nal Result Performing Organization Address City/[facility]/ZIP Co de Phone Number [facility] [address] [place] [address] * POCT glucose (10/20/2023 12:20 AM STORE CONSULTANT) Glucose, POC 111 70 - 140 mg/dL [facility] Comment: For Glucose values <35 mg/dl when Hematocrit is >60 mg/dl,the test may not accurately detect significant hypoglycemia,and testing in the Laboratory should be considered if clinically indicated. Blood 10/20/2023 12:2 0 AM STORE CONSULTANT 10/20/2023 12:20 AM STORE CONSULTANT Jaqueline Valero MD LAB POCT ORDERABLES - APRIL CE Final Result Performing Organization Address [facility] Co de Phone Number [facility] [address] [facility] [place] [address] * POCT glucose (10/19/2023 11:03 PM STORE CONSULTANT) Glucose, POC 111 70 - 140 mg/dL [facility] Comment: For Glucose values <35 mg/dl when Hematocrit is >60 mg/dl,the test may not accurately detect significant hypoglycemia,and testing in the Laboratory should be considered if clinically indicated. Blood 10/19/2023 11:0 3 PM STORE CONSULTANT 10/19/2023 11:03 PM STORE CONSULTANT Jaqueline Valero MD LAB POCT ORDERABLES - APRIL CE Final Result Performing Organization Address [facility] Co de Phone Number [facility] [address] [facility] [place] [address] * POCT glucose (10/19/2023 10:01 PM STORE CONSULTANT) Glucose, POC 120 70 - 140 mg/dL [facility] Comment: For Glucose values <35 mg/dl when Hematocrit is >60 mg/dl,the test may not accurately detect significant hypoglycemia,and testing in the Laboratory should be considered if clinically indicated. Blood 10/19/2023 10:0 1 PM STORE CONSULTANT 10/19/2023 10:01 PM STORE CONSULTANT Jaqueline Valero MD LAB POCT ORDERABLES - APRIL CE Final Result Performing Organization Address [facility] Co de Phone Number [facility] [address] [place] [address] * (ABNORMAL) aPTT (10/19/2023 9:47 PM STORE CONSULTANT) aPTT 94(H) 28 - 38 sec [facility] Comment: Interpretive Data Heparin therapeutic range: 66.0 - 100.0 seconds. Range based on correlation with therapeutic heparin activity range of 0.3 - 0.7 Units/mL. Current interpretive data was last revised on 2023. Blood 10/19/2023 9:47 PM STORE CONSULTANT 10/19/2023 9:54 PM STORE CONSULTANT Narrative [facility] - 10/19/2023 10:17 PM STORE CONSULTANT Draw STAT PTT 6 hrs after initiation of heparin infusion, draw STAT PTT 6 hours after each dose change, and every 6 hours until 2 consecutive PTTs are within therapeutic range. Once two consecutive PTT's are therapeutic (66-100 seconds), then draw PTT every AM until heparin is discontinued. Byron Olvera NP LAB BLOOD ORDERABLES Fi nal Result Performing Organization Address [facility] de Phone Number [facility] [address] [place] [address] * (ABNORMAL) POCT glucose (10/19/2023 9:15 PM STORE CONSULTANT) Glucose, POC 143(H) 70 - 140 mg/dL [facility] Comment: For Glucose values <35 mg/dl when Hematocrit is >60 mg/dl,the test may not accurately detect significant hypoglycemia,and testing in the Laboratory should be considered if clinically indicated. Blood 10/19/2023 9:15 PM STORE CONSULTANT 10/19/2023 9:15 PM STORE CONSULTANT Jaqueline Valero MD LAB POCT ORDERABLES - APRIL CE Final Result Performing Organization Address [facility] de Phone Number [facility] [address] [facility] [place] [address] * (ABNORMAL) POCT glucose (10/19/2023 8:12 PM STORE CONSULTANT) Glucose, POC 156(H) 70 - 140 mg/dL [facility] Comment: For Glucose values <35 mg/dl when Hematocrit is >60 mg/dl,the test may not accurately detect significant hypoglycemia,and testing in the Laboratory should be considered if clinically indicated. Blood 10/19/2023 8:12 PM STORE CONSULTANT 10/19/2023 8:12 PM STORE CONSULTANT Jaqueline Valero MD LAB POCT ORDERABLES - APRIL CE Final Result Performing Organization Address [facility] de Phone Number [facility] [address] [facility] [place] [address] * POCT glucose (10/19/2023 6:13 PM STORE CONSULTANT) Glucose, POC 94 70 - 140 mg/dL [facility] Comment: For Glucose values <35 mg/dl when Hematocrit is >60 mg/dl,the test may not accurately detect significant hypoglycemia,and testing in the Laboratory should be considered if clinically indicated. Blood 10/19/2023 6:13 PM STORE CONSULTANT 10/19/2023 6:13 PM STORE CONSULTANT Jaqueline Valero MD LAB POCT ORDERABLES - APRIL CE Final Result Performing Organization Address [facility] de Phone Number [facility] [address] [facility] [place] [address] * POCT glucose (10/19/2023 5:24 PM STORE CONSULTANT) Glucose, POC 90 70 - 140 mg/dL [facility] Comment: For Glucose values <35 mg/dl when Hematocrit is >60 mg/dl,the test may not accurately detect significant hypoglycemia,and testing in the Laboratory should be considered if clinically indicated. Blood 10/19/2023 5:24 PM STORE CONSULTANT 10/19/2023 5:24 PM STORE CONSULTANT us Jaqueline Valero MD LAB POCT ORDERABLES - APRIL CE Final Result [facility] [address] Department [place] [address] * XR Chest 1 View (10/19/2023 4:29 PM STORE CONSULTANT) Anatomical Region Laterality Modality Body, Chest N/A Computed Radiogr aphy 10/19/2023 4:32 PM STORE CONSULTANT Impressions 10/19/2023 4:32 PM STORE CONSULTANT Comparison made to radiograph 10/19/2023. Right internal [...] Trace Barrow M.D. Narrative 10/19/2023 4:32 PM STORE CONSULTANT EXAMINATION: XR CHEST 1 VIEW HISTORY: ??Chest [...] by: Trace Barrow M.D. us Dawna Castellanos [employer] IMG XR PROCEDURES Final R esult * POCT glucose (10/19/2023 4:25 PM STORE CONSULTANT) Glucose, POC 113 70 - 140 mg/dL [facility] Comment: For Glucose values <35 mg/dl when Hematocrit is >60 mg/dl,the test may not accurately detect significant hypoglycemia,and testing in the Laboratory should be considered if clinically indicated. Blood 10/19/2023 4:25 PM STORE CONSULTANT 10/19/2023 4:25 PM STORE CONSULTANT Jaqueline Valero MD LAB POCT ORDERABLES - APRIL CE Final Result Performing Organization Address [facility] Co de Phone Number [facility] [address] Department [place] [address] * ECG 12 lead (10/19/2023 3:21 PM STORE CONSULTANT) 10/19/2023 3:21 PM STORE CONSULTANT Narrative [facility] - 10/20/2023 9:37 AM STORE CONSULTANT Vent Rate: 78 bpm RR Interval: 769 msec OR Interval: 264 msec QRS Duration: 145 msec QT Interval: 426 msec QTC Interval: 459 msec P-R-T [place]: 47 - -19 - 115 degrees IMPRESSION: PROBABLE SINUS RHYTHM WITH FIRST DEGREE AV BLOCK FREQUENT SUPRAVENTRICULAR PREMATURE COMPLEXES IN A BIGEMINAL PATTERN INTRAVENTRICULAR CONDUCTION DELAY NONSPECIFIC T-WAVE CHANGES ABNORMAL ECG Electronically Signed By: Abelardo Randle MD Dawna Castellanos [employer] ECG ORDERABLES Final Res ult Performing Organization Address [facility] Co de Phone Number [facility] [employer] [facility] * XR Kub (10/19/2023 2:49 PM STORE CONSULTANT) Anatomical Region Laterality Modality Body, Abdomen N/A Computed Radiogr aphy 10/19/2023 3:00 PM STORE CONSULTANT Impressions 10/19/2023 3:00 PM STORE CONSULTANT FINDINGS/IMPRESSION: Postsurgical changes in the chest. ??Epicardial pacer wires overlie the abdomen and chest. ??Chest tube/mediastinal drains overlie the abdomen. ??Nguyen catheter superimposes the expected location of the urinary bladder. There is no dilatation of small or large bowel seen, although exam is limited secondary to body habitus. Electronically signed by: Nona Carrillo DO Narrative 10/19/2023 3:00 PM STORE CONSULTANT EXAM: ??XR KUB, 10/19/2023 1:50 PM HISTORY: [...] Result * (ABNORMAL) aPTT (10/19/2023 2:44 PM STORE CONSULTANT) aPTT 59(H) 28 - 38 sec [facility] Comment: Interpretive Data Heparin therapeutic range: 66.0 - 100.0 seconds. Range based on correlation with therapeutic heparin activity range of 0.3 - 0.7 Units/mL. Current interpretive data was last revised on 2023. Blood 10/19/2023 2:44 PM STORE CONSULTANT 10/19/2023 2:48 PM STORE CONSULTANT Narrative [facility] - 10/19/2023 3:02 PM STORE CONSULTANT Draw STAT PTT 6 hrs after initiation of heparin infusion, draw STAT PTT 6 hours after each dose change, and every 6 hours until 2 consecutive PTTs are within therapeutic range. Once two consecutive PTT's are therapeutic (66-100 seconds), then draw PTT every AM until heparin is discontinued. us Byron Olvera NP LAB BLOOD ORDERABLES Fi nal Result [facility] [address] [place] [address] [phone] * (ABNORMAL) Hepatic function panel (10/19/2023 2:44 PM STORE CONSULTANT) [facility] Bilirubin, total 0.3 0.1 - 1.2 mg/dL [facility] Bilirubin, direct <0.2 0.1 - 0.3 mg/dL [facility] Protein, pl 5.2(L) 6.5 - 8.5 g/dL [facility] Albumin 3.0(L) 3.5 - 5.0 g/dL [facility] Alk phos 104 40 - 130 Units/L [facility] ALT 9 7 - 55 Units/L [facility] AST 39 10 - 50 Units/L [facility] Blood 10/19/2023 2:44 PM STORE CONSULTANT 10/19/2023 2:48 PM STORE CONSULTANT Kirsten Burns MD LAB BLOOD ORDERABLES Fin al Result Performing Organization Address [facility]/ZIP Co de Phone Number [facility] [address] [facility] [place] [address] * (ABNORMAL) Lipase (10/19/2023 2:44 PM STORE CONSULTANT) [facility] Lipase 7(L) 10 - 99 Units/L [facility] Blood 10/19/2023 2:44 PM STORE CONSULTANT 10/19/2023 2:48 PM STORE CONSULTANT Kirsten Burns MD LAB BLOOD ORDERABLES Fin al Result Performing Organization Address [facility]/ZIP Co de Phone Number [facility] [address] [facility] [place] [address] * (ABNORMAL) Amylase (10/19/2023 2:44 PM STORE CONSULTANT) [facility] Amylase <3(L) 30 - 99 Units/L [facility] Blood 10/19/2023 2:44 PM STORE CONSULTANT 10/19/2023 2:48 PM STORE CONSULTANT Kirsten Burns MD LAB BLOOD ORDERABLES Fin al Result Performing Organization Address [facility] Co de Phone Number [facility] [address] [facility] [place], [place] [id number] * (ABNORMAL) POCT glucose (10/19/2023 2:40 PM STORE CONSULTANT) Glucose, POC 195(H) 70 - 140 mg/dL [facility] Comment: For Glucose values <35 mg/dl when Hematocrit is >60 mg/dl,the test may not accurately detect significant hypoglycemia,and testing in the Laboratory should be considered if clinically indicated. Blood 10/19/2023 2:40 PM STORE CONSULTANT 10/19/2023 2:40 PM STORE CONSULTANT Jaqueline Valero MD LAB POCT ORDERABLES - APRIL CE Final Result Performing Organization Address [facility] de Phone Number [facility] [address] [facility] [place] [address] * POCT glucose (10/19/2023 12:25 PM STORE CONSULTANT) Glucose, POC 114 70 - 140 mg/dL [facility] Comment: For Glucose values <35 mg/dl when Hematocrit is >60 mg/dl,the test may not accurately detect significant hypoglycemia,and testing in the Laboratory should be considered if clinically indicated. Blood 10/19/2023 12:2 5 PM STORE CONSULTANT 10/19/2023 12:25 PM STORE CONSULTANT Jaqueline Valero MD LAB POCT ORDERABLES - APRIL CE Final Result Performing Organization Address [facility] Co de Phone Number [facility] [address] [facility] [place], [place] [id number] * POCT glucose (10/19/2023 11:12 AM STORE CONSULTANT) Glucose, POC 116 70 - 140 mg/dL [facility] Comment: For Glucose values <35 mg/dl when Hematocrit is >60 mg/dl,the test may not accurately detect significant hypoglycemia,and testing in the Laboratory should be considered if clinically indicated. Blood 10/19/2023 11:1 2 AM STORE CONSULTANT 10/19/2023 11:12 AM STORE CONSULTANT Jaqueline Valero MD LAB POCT ORDERABLES - APRIL CE Final Result Performing Organization Address [facility] de Phone Number [facility] [address] [place] [address] * (ABNORMAL) POCT glucose (10/19/2023 10:54 AM STORE CONSULTANT) Glucose, POC 57(L) 70 - 140 mg/dL [facility] Comment: For Glucose values <35 mg/dl when Hematocrit is >60 mg/dl,the test may not accurately detect significant hypoglycemia,and testing in the Laboratory should be considered if clinically indicated. Blood 10/19/2023 10:5 4 AM STORE CONSULTANT 10/19/2023 10:54 AM STORE CONSULTANT Jaqueline Valero MD LAB POCT ORDERABLES - APRIL CE Final Result Performing Organization Address [facility] de Phone Number [facility] [address] [place] [address] * POCT glucose (10/19/2023 9:04 AM STORE CONSULTANT) Glucose, POC 82 70 - 140 mg/dL [facility] Comment: For Glucose values <35 mg/dl when Hematocrit is >60 mg/dl,the test may not accurately detect significant hypoglycemia,and testing in the Laboratory should be considered if clinically indicated. Blood 10/19/2023 9:04 AM STORE CONSULTANT 10/19/2023 9:04 AM STORE CONSULTANT Jaqueline Valero MD LAB POCT ORDERABLES - APRIL CE Final Result Performing Organization Address [facility] de Phone Number [facility] [address] [place] [address] * (ABNORMAL) aPTT (10/19/2023 8:58 AM STORE CONSULTANT) aPTT 46(H) 28 - 38 sec [facility] Comment: Interpretive Data Heparin therapeutic range: 66.0 - 100.0 seconds. Range based on correlation with therapeutic heparin activity range of 0.3 - 0.7 Units/mL. Current interpretive data was last revised on 2023. Blood 10/19/2023 8:58 AM STORE CONSULTANT 10/19/2023 9:28 AM STORE CONSULTANT Narrative [facility] - 10/19/2023 9:51 AM STORE CONSULTANT Draw STAT PTT 6 hrs after initiation of heparin infusion, draw STAT PTT 6 hours after each dose change, and every 6 hours until 2 consecutive PTTs are within therapeutic range. Once two consecutive PTT's are therapeutic (66-100 seconds), then draw PTT every AM until heparin is discontinued. Byron Olvera [employer]ECE [employer] LAB BLOOD ORDERABLES Fi nal Result Performing Organization Address [facility]/ZIP Co de Phone Number [facility] [address] [place] [address] * Oxyhemoglobin, central venous (10/19/2023 8:58 AM STORE CONSULTANT) Pathologist [facility] Oxyhemoglobin, CV 70.1 % [facility] Comment: Interpretive Data No reference range established. Current interpretive data was last revised 2019. Blood 10/19/2023 8:58 AM STORE CONSULTANT 10/19/2023 9:16 AM STORE CONSULTANT N[facility]ative [facility] - 10/19/2023 9:17 AM STORE CONSULTANT While on [facility] Dawna Castellanos [employer]ECE [employer]PER LAB BLOOD ORDERABLES Ann Marie l Result [facility] [address] [place] [place] [address] * (ABNORMAL) POCT glucose (10/19/2023 7:19 AM STORE CONSULTANT) Glucose, POC 150(H) 70 - 140 mg/dL [facility] Comment: For Glucose values <35 mg/dl when Hematocrit is >60 mg/dl,the test may not accurately detect significant hypoglycemia,and testing in the Laboratory should be considered if clinically indicated. Blood 10/19/2023 7:19 AM STORE CONSULTANT 10/19/2023 7:19 AM STORE CONSULTANT Jaqueline Valero MD LAB POCT ORDERABLES - APRIL CE Final Result Performing Organization Address [facility] Co de Phone Number [facility] [address] Department [facility] [place], [place] [phone] * Lactate (10/19/2023 7:09 AM STORE CONSULTANT) [facility] Lactate 1.4 0.7 - 2.0 mmol/L [facility] Blood 10/19/2023 7:09 AM STORE CONSULTANT 10/19/2023 7:22 AM STORE CONSULTANT Dawna Castellanos [employer] LAB BLOOD ORDERABLES Ann Marie l Result Performing Organization Address [facility] Co de Phone Number [facility] [address] [place] [address] * Oxyhemoglobin, central venous (10/19/2023 7:09 AM STORE CONSULTANT) [facility] Oxyhemoglobin, CV 96.5 % [facility] Comment: Interpretive Data No reference range established. Current interpretive data was last revised 2019. Blood 10/19/2023 7:09 AM STORE CONSULTANT 10/19/2023 7:22 AM STORE CONSULTANT Narrative [facility] - 10/19/2023 7:24 AM STORE CONSULTANT While on [facility] Dawna Castellanos [employer]PER LAB BLOOD ORDERABLES Ann Marie l Result Performing Organization Address [facility] Co de Phone Number [facility] [address] [place] [address] * Critical Care (10/19/2023 6:57 AM STORE CONSULTANT) Narrative Kirsten Burns MD - 10/19/2023 6:57 AM STORE CONSULTANT Dawna Castellanos NP ? 10/19/2023 ??2:12 PM Critical Care Performed by: Dawna Castellanos NP Authorized by: Dawna Castellanos NP ?? CRITICAL CARE: ??Team: ??[facility] [address] ??Shift: ??AM ??Level of Billing: ??Critical [...] plan with the ICU team and other medical/government operations consultant staff, making frequent assessments and decisions [...] * (ABNORMAL) POCT glucose (10/19/2023 6:57 AM STORE CONSULTANT) [facility] Signature Glucose, POC 147(H) 70 - 140 mg/dL [facility] Comment: For Glucose values <35 mg/dl when Hematocrit is >60 mg/dl,the test may not accurately detect significant hypoglycemia,and testing in the Laboratory should be considered if clinically indicated. Blood 10/19/2023 6:57 AM STORE CONSULTANT 10/19/2023 6:57 AM STORE CONSULTANT Jaqueline Valero MD LAB POCT ORDERABLES - APRIL CE Final Result [facility] [address] Department [place] [address] * XR Chest 1 View - Portable - in AM (10/19/2023 6:27 AM STORE CONSULTANT) Anatomical Region Laterality Modality Body, Chest N/A Computed Radiogr aphy 10/19/2023 7:36 AM STORE CONSULTANT Impressions 10/19/2023 7:36 AM STORE CONSULTANT Comparison is made to 10/10/2023. ??Right internal jugular catheter tip overlies the superior vena cava, unchanged in position. ??The [place]-Daniel catheter has been removed. ??Sternotomy wires and [...] John Bruno M.D. Narrative 10/19/2023 7:36 AM STORE CONSULTANT EXAMINATION: Chest 1 view frontal HISTORY: Shortness of breath Procedure Note John Bruno MD - 10/19/2023 EXAMINATION: Chest 1 view frontal HISTORY: Shortness of breath IMPRESSION: Comparison is made to 10/10/2023. Right internal jugular catheter tip overlies the superior vena cava, unchanged in position. The [place]-Daniel catheter has been removed. Sternotomy wires and [...] * (ABNORMAL) POCT glucose (10/19/2023 6:06 AM STORE CONSULTANT) Glucose, POC 163(H) 70 - 140 mg/dL [facility] Comment: For Glucose values <35 mg/dl when Hematocrit is >60 mg/dl,the test may not accurately detect significant hypoglycemia,and testing in the Laboratory should be considered if clinically indicated. Blood 10/19/2023 6:06 AM STORE CONSULTANT 10/19/2023 6:06 AM STORE CONSULTANT Jaqueline Valero MD LAB POCT ORDERABLES - APRIL CE Final Result Performing Organization Address [facility] Co de Phone Number [facility] [address] [facility] [place], [place] [phone] * (ABNORMAL) POCT glucose (10/19/2023 5:10 AM STORE CONSULTANT) Glucose, POC 191(H) 70 - 140 mg/dL [facility] Comment: For Glucose values <35 mg/dl when Hematocrit is >60 mg/dl,the test may not accurately detect significant hypoglycemia,and testing in the Laboratory should be considered if clinically indicated. Blood 10/19/2023 5:10 AM STORE CONSULTANT 10/19/2023 5:10 AM STORE CONSULTANT Jaqueline Valero MD LAB POCT ORDERABLES - APRIL CE Final Result Performing Organization Address [facility] de Phone Number [facility] [address] [facility] [place] [address] * (ABNORMAL) aPTT (10/19/2023 4:14 AM STORE CONSULTANT) aPTT 50(H) 28 - 38 sec [facility] Comment: Interpretive Data Heparin therapeutic range: 66.0 - 100.0 seconds. Range based on correlation with therapeutic heparin activity range of 0.3 - 0.7 Units/mL. Current interpretive data was last revised on 2023. Blood 10/19/2023 4:14 AM STORE CONSULTANT 10/19/2023 4:27 AM STORE CONSULTANT Narrative [facility] - 10/19/2023 5:01 AM STORE CONSULTANT Draw STAT PTT 6 hrs after initiation of heparin infusion, draw STAT PTT 6 hours after each dose change, and every 6 hours until 2 consecutive PTTs are within therapeutic range. Once two consecutive PTT's are therapeutic (46-70 seconds), then draw PTT every AM until heparin is discontinued. Jaqueline Valero MD LAB BLOOD ORDERABLES Final Result Performing Organization Address [facility] de Phone Number [facility] [address] [facility] [place] [address] * (ABNORMAL) POCT glucose (10/19/2023 4:03 AM STORE CONSULTANT) Glucose, POC 175(H) 70 - 140 mg/dL [facility] Comment: For Glucose values <35 mg/dl when Hematocrit is >60 mg/dl,the test may not accurately detect significant hypoglycemia,and testing in the Laboratory should be considered if clinically indicated. Blood 10/19/2023 4:03 AM STORE CONSULTANT 10/19/2023 4:03 AM STORE CONSULTANT Jaqueline Valero MD LAB POCT ORDERABLES - APRIL CE Final Result Performing Organization Address [facility] de Phone Number [facility] [address] [facility] [place] [address] * (ABNORMAL) POCT glucose (10/19/2023 2:56 AM STORE CONSULTANT) Glucose, POC 177(H) 70 - 140 mg/dL [facility] Comment: For Glucose values <35 mg/dl when Hematocrit is >60 mg/dl,the test may not accurately detect significant hypoglycemia,and testing in the Laboratory should be considered if clinically indicated. Blood 10/19/2023 2:56 AM STORE CONSULTANT 10/19/2023 2:56 AM STORE CONSULTANT Result [facility] Jaqueline Valero MD LAB POCT ORDERABLES - APRIL CE Final Result Performing Organization Address [facility]/ZIP Co de Phone Number [facility] [address] Department [place] [address] * eGFR (10/19/2023 2:11 AM STORE CONSULTANT) eGFR 5 mL/min/1. 73 m2 [facility] Comment: Interpretive Data Reference Interval [...] last reviewed 2021. Blood 10/19/2023 2:11 AM STORE CONSULTANT 10/19/2023 2:23 AM STORE CONSULTANT Dawna Castellanos [employer]ECE [employer]PER LAB BLOOD ORDERABLES Ann Marie l Result Performing Organization Address [facility]/ZIP Co de Phone Number [facility] [address] Department [place] [address] * (ABNORMAL) Blood gas, arterial (10/19/2023 2:11 AM STORE CONSULTANT) Pathologist [facility] pH, Art 7.28(L) 7.35 - 7.45 [facility] PCO2, Arterial 44 35 - 45 mmHg [facility] PO2, Arterial 130(H) 83 - 108 mmHg [facility] HCO3 Art (Calculated) 21 20 - 30 mmol/L [facility] BE, art -6 mmol/L [facility] Comment: Interpretive Data No Reference Range Established Current Interpretive Data was last revised on 2017 O2 Sat Art (Calculated) 99(H) 94 - 98 % [facility] Blood 10/19/2023 2:11 AM STORE CONSULTANT 10/19/2023 2:15 AM STORE CONSULTANT Gamal Fox [employer] LAB BLOOD ORDERABLES Final Result Performing Organization Address [facility] Co de Phone Number [facility] [address] Department [facility] [place], [place] [phone] * Oxyhemoglobin, central venous (10/19/2023 2:11 AM STORE CONSULTANT) [facility] Oxyhemoglobin, CV 79.0 % [facility] Comment: Interpretive Data No reference range established. Current interpretive data was last revised 2019. Blood 10/19/2023 2:11 AM STORE CONSULTANT 10/19/2023 2:15 AM STORE CONSULTANT Dawna Castellanos [employer] LAB BLOOD ORDERABLES Ann Marie l Result Performing Organization Address City/[facility]/ZIP Co de Phone Number [facility] [address] [place] [address] * Protime-INR (10/19/2023 2:11 AM STORE CONSULTANT) [facility] PT 12.8 10.3 - 13.7 sec [facility] INR 1.12 0.90 - 1.20 [facility] Comment: Interpretive data Oral anticoagulant therapeutic ranges: Venous thromboembolism prophylaxis or treatment: 2.0-3.0 CARDIOLOGY Standard range: 2.0-3.0 High-intensity range: 2.5-3.5 Refer to indication-specific guidelines for appropriate target ranges for prosthetic heart valve replacement. Current interpretive data was last revised on 2019. Blood 10/19/2023 2:11 AM STORE CONSULTANT 10/19/2023 2:23 AM STORE CONSULTANT Byron Olvera NP LAB BLOOD ORDERABLES Fi nal Result Performing Organization Address City/[facility] Co de Phone Number [facility] [address] [facility] [place], [place] [phone] * Magnesium (10/19/2023 2:11 AM STORE CONSULTANT) Magnesium 2.5 1.4 - 2.5 mg/dL [facility] Blood 10/19/2023 2:11 AM STORE CONSULTANT 10/19/2023 2:23 AM STORE CONSULTANT Byron Olvera NP LAB BLOOD ORDERABLES Fi nal Result Performing Organization Address [facility] Co de Phone Number [facility] [address] [facility] [place] [address] * Calcium, ionized (10/19/2023 2:11 AM STORE CONSULTANT) Pathologist [facility] Calcium, Ionized 4.69 4.50 - 5.10 mg/dL [facility] Blood 10/19/2023 2:11 AM STORE CONSULTANT 10/19/2023 2:15 AM STORE CONSULTANT Byron Olvera NP LAB BLOOD ORDERABLES Fi nal Result Performing Organization Address [facility] Co de Phone Number [facility] [address] [facility] [place], [place] [phone] * (ABNORMAL) Renal function panel (10/19/2023 2:11 AM STORE CONSULTANT) Sodium 138 135 - 145 mmol/L [facility] Potassium, pl 4.4 3.3 - 4.9 mmol/L [facility] Chloride 97 97 - 110 mmol/L [facility] CO2 21(L) 22 - 32 mmol/L [facility] Anion gap 20(H) 2 - 15 mmol/L [facility] BUN 74(H) 6 - 25 mg/dL [facility] Creatinine 10.85(H) 0.80 - 1.30 mg/dL [facility] Glucose 188 70 - 199 mg/dL [facility] Comment: Interpretive Data Fasting glucose [...] 2022. Calcium 9.0 8.5 - 10.3 mg/dL [facility] Phosphorus, pl 8.3(H) 2.3 - 4.5 mg/dL [facility] Albumin 3.1(L) 3.5 - 5.0 g/dL [facility] Blood 10/19/2023 2:11 AM STORE CONSULTANT 10/19/2023 2:23 AM STORE CONSULTANT us Byron Olvera NP LAB BLOOD ORDERABLES Fi nal Result [facility] [address] Department [place] [address] * (ABNORMAL) CBC without differential (10/19/2023 2:11 AM STORE CONSULTANT) WBC 8.9 3.8 - 9.9 K/cumm [facility] Hgb 8.7(L) 13.0 - 17.5 g/dL [facility] Hct 27.4(L) 38.9 - 50.3 % [facility] Plt 157 150 - 400 K/cumm [facility] MPV 11.0 9.1 - 12.3 fL [facility] RBC 2.91(L) 4.30 - 5.80 M/cumm [facility] MCV 94.2 81.3 - 96.4 fL [facility] MCH 29.9 27.1 - 33.3 pg [facility] MCHC 31.8(L) 32.3 - 35.7 g/dL [facility] RDW CV 16.4(H) 11.1 - 14.9 % [facility] RDW SD 55.0(H) 35.7 - 48.1 fL [facility] NRBC abs 0.00 0.00 - 0.01 K/cumm [facility] Blood 10/19/2023 2:11 AM STORE CONSULTANT 10/19/2023 2:23 AM STORE CONSULTANT Byron Olvera [employer]PIECE CH[employer]PER LAB BLOOD ORDERABLES Fi nal Result Performing Organization Address [facility]/ZIP Co de Phone Number [facility] [address] [place] [address] * (ABNORMAL) POCT glucose (10/19/2023 2:07 AM STORE CONSULTANT) Glucose, POC 171(H) 70 - 140 mg/dL [facility] Comment: For Glucose values <35 mg/dl when Hematocrit is >60 mg/dl,the test may not accurately detect significant hypoglycemia,and testing in the Laboratory should be considered if clinically indicated. Blood 10/19/2023 2:07 AM STORE CONSULTANT 10/19/2023 2:07 AM STORE CONSULTANT Jaqueline Valero MD LAB POCT ORDERABLES - APRIL CE Final Result Performing Organization Address City/[facility]/ZIP Co de Phone Number [facility] [address] [facility] [place] [address] * (ABNORMAL) POCT glucose (10/19/2023 12:01 AM STORE CONSULTANT) Glucose, POC 144(H) 70 - 140 mg/dL [facility] Comment: For Glucose values <35 mg/dl when Hematocrit is >60 mg/dl,the test may not accurately detect significant hypoglycemia,and testing in the Laboratory should be considered if clinically indicated. Blood 10/19/2023 12:0 1 AM STORE CONSULTANT 10/19/2023 12:01 AM STORE CONSULTANT Jaqueline Valero MD LAB POCT ORDERABLES - APRIL CE Final Result Performing Organization Address [facility] Co de Phone Number [facility] [address] [place] [address] * POCT glucose (10/18/2023 11:03 PM STORE CONSULTANT) Glucose, POC 106 70 - 140 mg/dL [facility] Comment: For Glucose values <35 mg/dl when Hematocrit is >60 mg/dl,the test may not accurately detect significant hypoglycemia,and testing in the Laboratory should be considered if clinically indicated. Blood 10/18/2023 11:0 3 PM STORE CONSULTANT 10/18/2023 11:03 PM STORE CONSULTANT Result [facility] Jaqueline Valero MD LAB POCT ORDERABLES - APRIL CE Final Result Performing Organization Address [facility] Co de Phone Number [facility] [address] [place] [address] * POCT glucose (10/18/2023 10:11 PM STORE CONSULTANT) Glucose, POC 114 70 - 140 mg/dL [facility] Comment: For Glucose values <35 mg/dl when Hematocrit is >60 mg/dl,the test may not accurately detect significant hypoglycemia,and testing in the Laboratory should be considered if clinically indicated. Blood 10/18/2023 10:1 1 PM STORE CONSULTANT 10/18/2023 10:11 PM STORE CONSULTANT Jaqueline Valero MD LAB POCT ORDERABLES - APRIL CE Final Result Performing Organization Address [facility] Co de Phone Number [facility] [address] [place] [address] * (ABNORMAL) aPTT (10/18/2023 9:21 PM STORE CONSULTANT) aPTT 43(H) 28 - 38 sec [facility] Comment: Interpretive Data Heparin therapeutic range: 66.0 - 100.0 seconds. Range based on correlation with therapeutic heparin activity range of 0.3 - 0.7 Units/mL. Current interpretive data was last revised on 2023. Blood 10/18/2023 9:21 PM STORE CONSULTANT 10/18/2023 9:25 PM STORE CONSULTANT Narrative [facility] - 10/18/2023 9:42 PM STORE CONSULTANT Draw STAT PTT 6 hrs after initiation of heparin infusion, draw STAT PTT 6 hours after each dose change, and every 6 hours until 2 consecutive PTTs are within therapeutic range. Once two consecutive PTT's are therapeutic (46-70 seconds), then draw PTT every AM until heparin is discontinued. Jaqueline Valero MD LAB BLOOD ORDERABLES Final Result Performing Organization Address [facility]/ZIP Co de Phone Number [facility] [address] [employer] [place], [place] [phone] * POCT glucose (10/18/2023 9:19 PM STORE CONSULTANT) [facility] Glucose, POC 120 70 - 140 mg/dL [facility] Comment: For Glucose values <35 mg/dl when Hematocrit is >60 mg/dl,the test may not accurately detect significant hypoglycemia,and testing in the Laboratory should be considered if clinically indicated. Blood 10/18/2023 9:19 PM STORE CONSULTANT 10/18/2023 9:19 PM STORE CONSULTANT Jaqueline Valero MD LAB POCT ORDERABLES - APRIL CE Final Result [facility] [address] [employer] [place], [place] [id number] * POCT glucose (10/18/2023 8:37 PM STORE CONSULTANT) Pathologist [facility] Glucose, POC 120 70 - 140 mg/dL [facility] Comment: For Glucose values <35 mg/dl when Hematocrit is >60 mg/dl,the test may not accurately detect significant hypoglycemia,and testing in the Laboratory should be considered if clinically indicated. Blood 10/18/2023 8:37 PM STORE CONSULTANT 10/18/2023 8:37 PM STORE CONSULTANT Jaqueline Valero MD LAB POCT ORDERABLES - APRIL CE Final Result Performing Organization Address [facility] Co de Phone Number [facility] [address] Department [place] [address] * (ABNORMAL) Blood gas, arterial (10/18/2023 8:34 PM STORE CONSULTANT) pH, Art 7.27(L) 7.35 - 7.45 [facility] PCO2, Arterial 46(H) 35 - 45 mmHg [facility] PO2, Arterial 88 83 - 108 mmHg [facility] HCO3 Art (Calculated) 21 20 - 30 mmol/L [facility] BE, art -6 mmol/L [facility] Comment: Interpretive Data No Reference Range Established Current Interpretive Data was last revised on 2017 O2 Sat Art (Calculated) 95 94 - 98 % [facility] Blood 10/18/2023 8:34 PM STORE CONSULTANT 10/18/2023 8:40 PM STORE CONSULTANT Result [facility] Gamal Fox NP LAB BLOOD ORDERABLES Final Result Performing Organization Address [facility] Co de Phone Number [facility] [address] Department of [place] [address] * Critical Care (10/18/2023 6:49 PM STORE CONSULTANT) Narrative Kirsten Burns MD - 10/18/2023 6:49 PM STORE CONSULTANT Gamal Fox NP ? 10/19/2023 ??3:18 AM Critical Care Performed by: Gamal Fox NP Authorized by: Gamal Fox NP ?? CRITICAL CARE: ??Team: ??[facility] [address] ??Shift: ??PM ??Level of Billing: ??Critical [...] plan with the ICU team and other medical/government operations consultant staff, making frequent assessments and decisions [...] Result * POCT glucose (10/18/2023 6:38 PM STORE CONSULTANT) Glucose, POC 135 70 - 140 mg/dL [facility] Comment: For Glucose values <35 mg/dl when Hematocrit is >60 mg/dl,the test may not accurately detect significant hypoglycemia,and testing in the Laboratory should be considered if clinically indicated. Blood 10/18/2023 6:38 PM STORE CONSULTANT 10/18/2023 6:38 PM STORE CONSULTANT Jaqueline Valero MD LAB POCT ORDERABLES - APRIL CE Final Result [facility] [address] Department [place] [address] * POCT glucose (10/18/2023 5:45 PM STORE CONSULTANT) Glucose, POC 132 70 - 140 mg/dL [facility] Comment: For Glucose values <35 mg/dl when Hematocrit is >60 mg/dl,the test may not accurately detect significant hypoglycemia,and testing in the Laboratory should be considered if clinically indicated. Blood 10/18/2023 5:45 PM STORE CONSULTANT 10/18/2023 5:45 PM STORE CONSULTANT us Jaqueline Valero MD LAB POCT ORDERABLES - APRIL CE Final Result [facility] [address] [place] [address] * XR Kub (10/18/2023 5:42 PM STORE CONSULTANT) Anatomical Region Laterality Modality Body, Abdomen N/A Computed Radiogr aphy 10/18/2023 5:50 PM STORE CONSULTANT Impressions 10/18/2023 5:50 PM STORE CONSULTANT FINDINGS/IMPRESSION: ?? Apically oriented left-sided chest tubes and mediastinal drains. Overall paucity of gas distended bowel loops within the abdomen and pelvis. ??No visualized dilated bowel loops. ??No large volume of intraperitoneal free air, although evaluation is limited with supine positioning. ??A Nguyen catheter temperature probe is present. ??No acute osseous abnormality. Electronically signed by: Camilo Cheatham MD Narrative 10/18/2023 5:50 PM STORE CONSULTANT EXAMINATION: XR KUB HISTORY: Nausa vomiting VIEWS: [...] Result * POCT glucose (10/18/2023 4:47 PM STORE CONSULTANT) Glucose, POC 138 70 - 140 mg/dL [facility] Comment: For Glucose values <35 mg/dl when Hematocrit is >60 mg/dl,the test may not accurately detect significant hypoglycemia,and testing in the Laboratory should be considered if clinically indicated. Blood 10/18/2023 4:47 PM STORE CONSULTANT 10/18/2023 4:47 PM STORE CONSULTANT Jaqueline Valero MD LAB POCT ORDERABLES - APRIL CE Final Result Performing Organization Address [facility] de Phone Number [facility] [address] [facility] [place] [address] * aPTT (10/18/2023 2:55 PM STORE CONSULTANT) [facility] Signature aPTT 38 28 - 38 sec [facility] Comment: Interpretive Data Heparin therapeutic range: 66.0 - 100.0 seconds. Range based on correlation with therapeutic heparin activity range of 0.3 - 0.7 Units/mL. Current interpretive data was last revised on 2023. Blood 10/18/2023 2:55 PM STORE CONSULTANT 10/18/2023 3:16 PM STORE CONSULTANT Result [facility] Jaqueline Valero MD LAB BLOOD ORDERABLES Final Result Performing Organization Address [facility] de Phone Number [facility] [address] [facility] [place] [address] * POCT glucose (10/18/2023 2:52 PM STORE CONSULTANT) Glucose, POC 104 70 - 140 mg/dL [facility] Comment: For Glucose values <35 mg/dl when Hematocrit is >60 mg/dl,the test may not accurately detect significant hypoglycemia,and testing in the Laboratory should be considered if clinically indicated. Blood 10/18/2023 2:52 PM STORE CONSULTANT 10/18/2023 2:52 PM STORE CONSULTANT Result [facility] Jaqueline Valero MD LAB POCT ORDERABLES - APRIL CE Final Result Performing Organization Address [facility] Co de Phone Number [facility] [address] [facility] [place] [address] * POCT glucose (10/18/2023 1:53 PM STORE CONSULTANT) Glucose, POC 87 70 - 140 mg/dL [facility] Comment: For Glucose values <35 mg/dl when Hematocrit is >60 mg/dl,the test may not accurately detect significant hypoglycemia,and testing in the Laboratory should be considered if clinically indicated. Blood 10/18/2023 1:53 PM STORE CONSULTANT 10/18/2023 1:53 PM STORE CONSULTANT Jaqueline Valero MD LAB POCT ORDERABLES - APRIL CE Final Result Performing Organization Address [facility] Co de Phone Number [facility] [address] [facility] [place] [address] * POCT glucose (10/18/2023 12:48 PM STORE CONSULTANT) Glucose, POC 83 70 - 140 mg/dL [facility] Comment: For Glucose values <35 mg/dl when Hematocrit is >60 mg/dl,the test may not accurately detect significant hypoglycemia,and testing in the Laboratory should be considered if clinically indicated. Blood 10/18/2023 12:4 8 PM STORE CONSULTANT 10/18/2023 12:48 PM STORE CONSULTANT Jaqueline Valero MD LAB POCT ORDERABLES - APRIL CE Final Result Performing Organization Address [facility] Co de Phone Number [facility] [address] [place] [address] * POCT glucose (10/18/2023 12:00 PM STORE CONSULTANT) Glucose, POC 81 70 - 140 mg/dL [facility] Comment: For Glucose values <35 mg/dl when Hematocrit is >60 mg/dl,the test may not accurately detect significant hypoglycemia,and testing in the Laboratory should be considered if clinically indicated. Blood 10/18/2023 12:0 0 PM STORE CONSULTANT 10/18/2023 12:00 PM STORE CONSULTANT Jaqueline Valero MD LAB POCT ORDERABLES - APRIL CE Final Result Performing Organization Address [facility] Co de Phone Number [facility] [address] [facility] [place] [address] * POCT glucose (10/18/2023 10:57 AM STORE CONSULTANT) Glucose, POC 76 70 - 140 mg/dL [facility] Comment: For Glucose values <35 mg/dl when Hematocrit is >60 mg/dl,the test may not accurately detect significant hypoglycemia,and testing in the Laboratory should be considered if clinically indicated. Blood 10/18/2023 10:5 7 AM STORE CONSULTANT 10/18/2023 10:57 AM STORE CONSULTANT Result [facility] Jaqueline Valero MD LAB POCT ORDERABLES - APRIL CE Final Result Performing Organization Address [facility] de Phone Number [facility] [address] [facility] [place] [address] * POCT glucose (10/18/2023 9:52 AM STORE CONSULTANT) Glucose, POC 92 70 - 140 mg/dL [facility] Comment: For Glucose values <35 mg/dl when Hematocrit is >60 mg/dl,the test may not accurately detect significant hypoglycemia,and testing in the Laboratory should be considered if clinically indicated. Blood 10/18/2023 9:52 AM STORE CONSULTANT 10/18/2023 9:52 AM STORE CONSULTANT Result [facility] Jaqueline Valero MD LAB POCT ORDERABLES - APRIL CE Final Result Performing Organization Address [facility] Co de Phone Number [facility] [address] [facility] [place] [address] * POCT glucose (10/18/2023 8:46 AM STORE CONSULTANT) Glucose, POC 115 70 - 140 mg/dL [facility] Comment: For Glucose values <35 mg/dl when Hematocrit is >60 mg/dl,the test may not accurately detect significant hypoglycemia,and testing in the Laboratory should be considered if clinically indicated. Blood 10/18/2023 8:46 AM STORE CONSULTANT 10/18/2023 8:46 AM STORE CONSULTANT Jaqueline Valero MD LAB POCT ORDERABLES - APRIL CE Final Result Performing Organization Address [facility] de Phone Number [facility] [address] Department [place] [address] * POCT glucose (10/18/2023 7:58 AM STORE CONSULTANT) Glucose, POC 130 70 - 140 mg/dL [facility] Comment: For Glucose values <35 mg/dl when Hematocrit is >60 mg/dl,the test may not accurately detect significant hypoglycemia,and testing in the Laboratory should be considered if clinically indicated. Blood 10/18/2023 7:58 AM STORE CONSULTANT 10/18/2023 7:58 AM STORE CONSULTANT Jaqueline Valero MD LAB POCT ORDERABLES - APRIL CE Final Result Performing Organization Address [facility] de Phone Number [facility] [address] [place] [address] * Critical Care (10/18/2023 7:27 AM STORE CONSULTANT) Narrative Kirsten Burns MD - 10/18/2023 7:27 AM STORE CONSULTANT Dawna Castellanos NP ? 10/18/2023 ??2:29 PM Critical Care Performed by: Dawna Castellanos NP Authorized by: Dawna Castellanos NP ?? CRITICAL CARE: ??Team: ??[facility] [address] ??Shift: ??AM ??Level of Billing: ??Critical [...] plan with the ICU team and other medical/government operations consultant staff, making frequent assessments and decisions [...] * (ABNORMAL) POCT glucose (10/18/2023 7:02 AM STORE CONSULTANT) Glucose, POC 169(H) 70 - 140 mg/dL [facility] Comment: For Glucose values <35 mg/dl when Hematocrit is >60 mg/dl,the test may not accurately detect significant hypoglycemia,and testing in the Laboratory should be considered if clinically indicated. Blood 10/18/2023 7:02 AM STORE CONSULTANT 10/18/2023 7:02 AM STORE CONSULTANT Jaqueline Valero MD LAB POCT ORDERABLES - APRIL CE Final Result [facility] [address] [place] [address] * (ABNORMAL) POCT glucose (10/18/2023 6:04 AM STORE CONSULTANT) Glucose, POC 196(H) 70 - 140 mg/dL [facility] Comment: For Glucose values <35 mg/dl when Hematocrit is >60 mg/dl,the test may not accurately detect significant hypoglycemia,and testing in the Laboratory should be considered if clinically indicated. Blood 10/18/2023 6:04 AM STORE CONSULTANT 10/18/2023 6:04 AM STORE CONSULTANT us Jaqueline Valero MD LAB POCT ORDERABLES - APRIL CE Final Result [facility] [address] [place] [address] * XR Chest 1 View - Portable - in AM (10/18/2023 5:38 AM STORE CONSULTANT) Anatomical Region Laterality Modality Body, Chest N/A Computed Radiogr aphy 10/18/2023 9:33 AM STORE CONSULTANT Impressions 10/18/2023 9:33 AM STORE CONSULTANT Comparison 10/17/2023 at 1:37 PM. ??Median sternotomy wires and sternal plates again seen. ??Aortic valve replacement again noted. ??[place]-Daniel catheter tip projects over the proximal portion [...] Ramirez Blake M.D. Narrative 10/18/2023 9:33 AM STORE CONSULTANT EXAMINATION: Chest 1 view Procedure Note Ramirez Blake MD - 10/18/2023 EXAMINATION: Chest 1 view IMPRESSION: Comparison 10/17/2023 at 1:37 PM. Median sternotomy wires and sternal plates again seen. Aortic valve replacement again noted. [place]-Daniel catheter tip projects over the proximal portion [...] signed by: Ramirez Blake M.D. Byron Olvera [employer] IMG XR PROCEDURES Final Result * (ABNORMAL) POCT glucose (10/18/2023 5:04 AM STORE CONSULTANT) Glucose, POC 172(H) 70 - 140 mg/dL [facility] Comment: For Glucose values <35 mg/dl when Hematocrit is >60 mg/dl,the test may not accurately detect significant hypoglycemia,and testing in the Laboratory should be considered if clinically indicated. Blood 10/18/2023 5:04 AM STORE CONSULTANT 10/18/2023 5:04 AM STORE CONSULTANT Result [facility] Jaqueline Valero MD LAB POCT ORDERABLES - APRIL CE Final Result Performing Organization Address [facility] de Phone Number [facility] [address] [facility] [place], [place] [id number] * (ABNORMAL) POCT glucose (10/18/2023 4:03 AM STORE CONSULTANT) Glucose, POC 165(H) 70 - 140 mg/dL [facility] Comment: For Glucose values <35 mg/dl when Hematocrit is >60 mg/dl,the test may not accurately detect significant hypoglycemia,and testing in the Laboratory should be considered if clinically indicated. Blood 10/18/2023 4:03 AM STORE CONSULTANT 10/18/2023 4:03 AM STORE CONSULTANT Result [facility] Jaqueline Valero MD LAB POCT ORDERABLES - APRIL CE Final Result Performing Organization Address [facility] Co de Phone Number [facility] [address] [facility] [place] [address] * (ABNORMAL) POCT glucose (10/18/2023 3:04 AM STORE CONSULTANT) Glucose, POC 167(H) 70 - 140 mg/dL [facility] Comment: For Glucose values <35 mg/dl when Hematocrit is >60 mg/dl,the test may not accurately detect significant hypoglycemia,and testing in the Laboratory should be considered if clinically indicated. Blood 10/18/2023 3:04 AM STORE CONSULTANT 10/18/2023 3:04 AM STORE CONSULTANT Jaqueline Valero MD LAB POCT ORDERABLES - APRIL CE Final Result Performing Organization Address [facility] Co de Phone Number [facility] [address] [facility] [place] [address] * (ABNORMAL) POCT glucose (10/18/2023 1:57 AM STORE CONSULTANT) Glucose, POC 178(H) 70 - 140 mg/dL [facility] Comment: For Glucose values <35 mg/dl when Hematocrit is >60 mg/dl,the test may not accurately detect significant hypoglycemia,and testing in the Laboratory should be considered if clinically indicated. Blood 10/18/2023 1:57 AM STORE CONSULTANT 10/18/2023 1:57 AM STORE CONSULTANT us Jaqueline Valero MD LAB POCT ORDERABLES - APRIL CE Final Result Performing Organization Address [facility] de Phone Number [facility] [address] [facility] [place] [address] * (ABNORMAL) Fibrinogen (10/18/2023 1:54 AM STORE CONSULTANT) [facility] Fibrinogen 435(H) 170 - 400 mg/dL [facility] Blood 10/18/2023 1:54 AM STORE CONSULTANT 10/18/2023 2:14 AM STORE CONSULTANT us Jaqueline Valero MD LAB BLOOD ORDERABLES Final Result Performing Organization Address [facility] Co de Phone Number [facility] [address] [place] [address] * eGFR (10/18/2023 1:54 AM STORE CONSULTANT) Pathologist [facility] eGFR 5 mL/min/1. 73 m2 [facility] Comment: Interpretive Data Reference Interval [...] last reviewed 2021. Blood 10/18/2023 1:54 AM STORE CONSULTANT 10/18/2023 2:14 AM STORE CONSULTANT us Dawna Castellanos [employer] LAB BLOOD ORDERABLES Ann Marie kramer Result [facility] [address] [place] [address] * Blood gas, arterial (10/18/2023 1:54 AM STORE CONSULTANT) Pathologist [facility] pH, Art 7.35 7.35 - 7.45 [facility] PCO2, Arterial 38 35 - 45 mmHg [facility] PO2, Arterial 92 83 - 108 mmHg [facility] HCO3 Art (Calculated) 21 20 - 30 mmol/L [facility] BE, art -4 mmol/L [facility] Comment: Interpretive Data No Reference Range Established Current Interpretive Data was last revised on 2017 O2 Sat Art (Calculated) 97 94 - 98 % [facility] Blood 10/18/2023 1:54 AM STORE CONSULTANT 10/18/2023 2:11 AM STORE CONSULTANT Dawna Castellanos [employer] LAB BLOOD ORDERABLES Ann Marie l Result Performing Organization Address [facility] Co de Phone Number [facility] [address] [place] [address] * Protime-INR (10/18/2023 1:54 AM STORE CONSULTANT) PT 13.4 10.3 - 13.7 sec [facility] INR 1.18 0.90 - 1.20 [facility] Comment: Interpretive data Oral anticoagulant therapeutic ranges: Venous thromboembolism prophylaxis or treatment: 2.0-3.0 CARDIOLOGY Standard range: 2.0-3.0 High-intensity range: 2.5-3.5 Refer to indication-specific guidelines for appropriate target ranges for prosthetic heart valve replacement. Current interpretive data was last revised on 2019. Blood 10/18/2023 1:54 AM STORE CONSULTANT 10/18/2023 2:14 AM STORE CONSULTANT Jaqueline Valero MD LAB BLOOD ORDERABLES Final Result Performing Organization Address [facility] Co de Phone Number [facility] [address] [place] [address] * Magnesium (10/18/2023 1:54 AM STORE CONSULTANT) Magnesium 2.5 1.4 - 2.5 mg/dL [facility] Blood 10/18/2023 1:54 AM STORE CONSULTANT 10/18/2023 2:14 AM STORE CONSULTANT Byron Olvera [employer] LAB BLOOD ORDERABLES Fi nal Result Performing Organization Address [facility]/State/ZIP Co de Phone Number [facility] [address] [place] [address] * Calcium, ionized (10/18/2023 1:54 AM STORE CONSULTANT) Calcium, Ionized 4.94 4.50 - 5.10 mg/dL [facility] Blood 10/18/2023 1:54 AM STORE CONSULTANT 10/18/2023 2:12 AM STORE CONSULTANT Byron Olvera NP LAB BLOOD ORDERABLES Fi nal Result [facility] [address] [place] [address] * (ABNORMAL) Renal function panel (10/18/2023 1:54 AM STORE CONSULTANT) Pathologist [facility] Sodium 136 135 - 145 mmol/L [facility] Potassium, pl 4.0 3.3 - 4.9 mmol/L [facility] Chloride 98 97 - 110 mmol/L [facility] CO2 20(L) 22 - 32 mmol/L [facility] Anion gap 18(H) 2 - 15 mmol/L [facility] BUN 71(H) 6 - 25 mg/dL [facility] Creatinine 10.47(H) 0.80 - 1.30 mg/dL [facility] Glucose 174 70 - 199 mg/dL [facility] Comment: Interpretive Data Fasting glucose [...] 2022. Calcium 9.2 8.5 - 10.3 mg/dL [facility] Phosphorus, pl 6.5(H) 2.3 - 4.5 mg/dL [facility] Albumin 2.6(L) 3.5 - 5.0 g/dL [facility] Blood 10/18/2023 1:54 AM STORE CONSULTANT 10/18/2023 2:14 AM STORE CONSULTANT Byron Olvera [employer] LAB BLOOD ORDERABLES Fi nal Result Performing Organization Address [facility] Co de Phone Number [facility] [address] [place] [place] [address] * (ABNORMAL) CBC without differential (10/18/2023 1:54 AM STORE CONSULTANT) [facility] WBC 8.3 3.8 - 9.9 K/cumm [facility] Hgb 8.5(L) 13.0 - 17.5 g/dL [facility] Hct 26.4(L) 38.9 - 50.3 % [facility] Plt 164 150 - 400 K/cumm [facility] MPV 11.1 9.1 - 12.3 fL [facility] RBC 2.89(L) 4.30 - 5.80 M/cumm [facility] MCV 91.3 81.3 - 96.4 fL [facility] MCH 29.4 27.1 - 33.3 pg [facility] MCHC 32.2(L) 32.3 - 35.7 g/dL [facility] RDW CV 15.5(H) 11.1 - 14.9 % [facility] RDW SD 49.9(H) 35.7 - 48.1 fL [facility] NRBC abs 0.02(H) 0.00 - 0.01 K/cumm [facility] Blood 10/18/2023 1:54 AM STORE CONSULTANT 10/18/2023 2:14 AM STORE CONSULTANT Byron Olvera NP LAB BLOOD ORDERABLES Fi nal Result Performing Organization Address [facility]/ZIP Co de Phone Number [facility] [address] [place] [address] * (ABNORMAL) POCT glucose (10/18/2023 12:57 AM STORE CONSULTANT) Glucose, POC 169(H) 70 - 140 mg/dL [facility] Comment: For Glucose values <35 mg/dl when Hematocrit is >60 mg/dl,the test may not accurately detect significant hypoglycemia,and testing in the Laboratory should be considered if clinically indicated. Blood 10/18/2023 12:5 7 AM STORE CONSULTANT 10/18/2023 12:57 AM STORE CONSULTANT Jaqueline Valero MD LAB POCT ORDERABLES - APRIL CE Final Result Performing Organization Address [facility] Co de Phone Number [facility] [address] [facility] [place] [address] * (ABNORMAL) POCT glucose (10/18/2023 12:04 AM STORE CONSULTANT) Glucose, POC 150(H) 70 - 140 mg/dL [facility] Comment: For Glucose values <35 mg/dl when Hematocrit is >60 mg/dl,the test may not accurately detect significant hypoglycemia,and testing in the Laboratory should be considered if clinically indicated. Blood 10/18/2023 12:0 4 AM STORE CONSULTANT 10/18/2023 12:04 AM STORE CONSULTANT Jaqueline Valero MD LAB POCT ORDERABLES - APRIL CE Final Result Performing Organization Address [facility] Co de Phone Number [facility] [address] [facility] [place] [address] * POCT glucose (10/17/2023 11:00 PM STORE CONSULTANT) Glucose, POC 111 70 - 140 mg/dL [facility] Comment: For Glucose values <35 mg/dl when Hematocrit is >60 mg/dl,the test may not accurately detect significant hypoglycemia,and testing in the Laboratory should be considered if clinically indicated. Blood 10/17/2023 11:0 0 PM STORE CONSULTANT 10/17/2023 11:00 PM STORE CONSULTANT Jaqueline Valero MD LAB POCT ORDERABLES - APRIL CE Final Result [facility] [address] Department [place] [address] * (ABNORMAL) Blood gas, arterial (10/17/2023 10:56 PM STORE CONSULTANT) Pathologist [facility] pH, Art 7.33(L) 7.35 - 7.45 [facility] PCO2, Arterial 38 35 - 45 mmHg [facility] PO2, Arterial 102 83 - 108 mmHg [facility] HCO3 Art (Calculated) 20 20 - 30 mmol/L [facility] BE, art -5 mmol/L [facility] Comment: Interpretive Data No Reference Range Established Current Interpretive Data was last revised on 2017 O2 Sat Art (Calculated) 97 94 - 98 % [facility] Blood 10/17/2023 10:5 6 PM STORE CONSULTANT 10/17/2023 11:05 PM STORE CONSULTANT Dawna Castellanos [employer] LAB BLOOD ORDERABLES Ann Marie l Result [facility] [address] [place] [address] * (ABNORMAL) Differential, auto (10/17/2023 10:55 PM STORE CONSULTANT) Pathologist [facility] Neutrophil abs 5.7 1.5 - 6.5 K/cumm [facility] Imm gran abs 0.1 0.0 - 0.1 K/cumm [facility] Lymphocyte abs 0.7(L) 0.8 - 3.3 K/cumm [facility] Monocyte abs 1.1(H) 0.2 - 0.8 K/cumm [facility] Eosinophil abs 0.1 0.0 - 0.5 K/cumm [facility] Basophil abs 0.0 0.0 - 0.1 K/cumm [facility] Neutrophil pct 73.6 % [facility] Comment: Interpretive Data Percent cell count reference ranges are not reported, since discordance with absolute values may lead to misinterpretation of CBC data. Current Interpretive Data was last revised on 2017. Imm gran pct 1.8 % [facility] Comment: Interpretive Data Percent cell count reference ranges are not reported, since discordance with absolute values may lead to misinterpretation of CBC data. Current Interpretive Data was last revised on 2017. Lymphocyte pct 9.3 % [facility] Comment: Interpretive Data Percent cell count reference ranges are not reported, since discordance with absolute values may lead to misinterpretation of CBC data. Current Interpretive Data was last revised on 2017. Monocyte pct 13.7 % [facility] Comment: Interpretive Data Percent cell count reference ranges are not reported, since discordance with absolute values may lead to misinterpretation of CBC data. Current Interpretive Data was last revised on 2017. Eosinophil pct 1.3 % [facility] Comment: Interpretive Data Percent cell count reference ranges are not reported, since discordance with absolute values may lead to misinterpretation of CBC data. Current Interpretive Data was last revised on 2017. Basophil pct 0.3 % [facility] Comment: Interpretive Data Percent cell count reference ranges are not reported, since discordance with absolute values may lead to misinterpretation of CBC data. Current Interpretive Data was last revised on 2017. Blood 10/17/2023 10:5 5 PM STORE CONSULTANT 10/17/2023 11:19 PM STORE CONSULTANT Gamal Fox NP LAB BLOOD ORDERABLES Final Result Performing Organization Address City/[facility]/ZIP Co de Phone Number [facility] [address] Department [place] [address] * Lactate (10/17/2023 10:55 PM STORE CONSULTANT) Lactate 0.9 0.7 - 2.0 mmol/L [facility] Blood 10/17/2023 10:5 5 PM STORE CONSULTANT 10/17/2023 11:04 PM STORE CONSULTANT Gamal Fox NP LAB BLOOD ORDERABLES Final Result [facility] [address] [facility] [place] [address] * Calcium, ionized (10/17/2023 10:55 PM STORE CONSULTANT) [facility] Calcium, Ionized 4.51 4.50 - 5.10 mg/dL [facility] Blood 10/17/2023 10:5 5 PM STORE CONSULTANT 10/17/2023 11:05 PM STORE CONSULTANT Gamal Fox [employer] LAB BLOOD ORDERABLES Final Result Performing Organization Address City/[facility] Co de Phone Number [facility] [address] [email or web address] [address] * (ABNORMAL) CBC with auto differential (10/17/2023 10:55 PM STORE CONSULTANT) [facility] WBC 7.7 3.8 - 9.9 K/cumm [facility] Hgb 8.8(L) 13.0 - 17.5 g/dL [facility] Hct 27.2(L) 38.9 - 50.3 % [facility] Plt 165 150 - 400 K/cumm [facility] MPV 11.0 9.1 - 12.3 fL [facility] RBC 2.94(L) 4.30 - 5.80 M/cumm [facility] MCV 92.5 81.3 - 96.4 fL [facility] MCH 29.9 27.1 - 33.3 pg [facility] MCHC 32.4 32.3 - 35.7 g/dL [facility] RDW CV 15.6(H) 11.1 - 14.9 % [facility] RDW SD 50.5(H) 35.7 - 48.1 fL [facility] NRBC abs 0.03(H) 0.00 - 0.01 K/cumm [facility] Blood 10/17/2023 10:5 5 PM STORE CONSULTANT 10/17/2023 11:19 PM STORE CONSULTANT Gamal Fox NP LAB BLOOD ORDERABLES Final Result Performing Organization Address [facility] Co de Phone Number [facility] [address] [place] [address] * POCT glucose (10/17/2023 10:19 PM STORE CONSULTANT) Glucose, POC 97 70 - 140 mg/dL [facility] Comment: For Glucose values <35 mg/dl when Hematocrit is >60 mg/dl,the test may not accurately detect significant hypoglycemia,and testing in the Laboratory should be considered if clinically indicated. Blood 10/17/2023 10:1 9 PM STORE CONSULTANT 10/17/2023 10:19 PM STORE CONSULTANT Jaqueline Valero MD LAB POCT ORDERABLES - APRIL CE Final Result Performing Organization Address [facility] de Phone Number [facility] [address] [facility] [place] [address] * POCT glucose (10/17/2023 9:00 PM STORE CONSULTANT) Glucose, POC 127 70 - 140 mg/dL [facility] Comment: For Glucose values <35 mg/dl when Hematocrit is >60 mg/dl,the test may not accurately detect significant hypoglycemia,and testing in the Laboratory should be considered if clinically indicated. Blood 10/17/2023 9:00 PM STORE CONSULTANT 10/17/2023 9:00 PM STORE CONSULTANT Jaqueline Valero MD LAB POCT ORDERABLES - APRIL CE Final Result Performing Organization Address [facility] Co de Phone Number [facility] [address] Department [facility] [place], [place] [phone] * Transfuse RBC (10/17/2023 8:13 PM STORE CONSULTANT) Blood Kirsten Burns MD BLOOD TRANSFUSION ORDERA BLES Final Result Performing Organization Address [facility] Co de Phone Number [facility] [address] Department [place] [address] * Transfuse RBC: 1 Units (10/17/2023 8:13 PM STORE CONSULTANT) Blood Kirsten Burns MD BLOOD TRANSFUSION ORDERA BLES Final Result * (ABNORMAL) POCT glucose (10/17/2023 8:07 PM STORE CONSULTANT) Glucose, POC 157(H) 70 - 140 mg/dL [facility] Comment: For Glucose values <35 mg/dl when Hematocrit is >60 mg/dl,the test may not accurately detect significant hypoglycemia,and testing in the Laboratory should be considered if clinically indicated. Blood 10/17/2023 8:07 PM STORE CONSULTANT 10/17/2023 8:07 PM STORE CONSULTANT Result [facility] Jaqueline Valero MD LAB POCT ORDERABLES - APRIL CE Final Result Performing Organization Address [facility] Co de Phone Number [facility] [address] [facility] [place] [address] * POCT glucose (10/17/2023 7:18 PM STORE CONSULTANT) Glucose, POC 135 70 - 140 mg/dL [facility] Comment: For Glucose values <35 mg/dl when Hematocrit is >60 mg/dl,the test may not accurately detect significant hypoglycemia,and testing in the Laboratory should be considered if clinically indicated. Blood 10/17/2023 7:18 PM STORE CONSULTANT 10/17/2023 7:18 PM STORE CONSULTANT Jaqueline Valero MD LAB POCT ORDERABLES - APRIL CE Final Result Performing Organization Address City/[facility]/ZIP Co de Phone Number [facility] [address] Department [place] [address] * Critical Care (10/17/2023 6:42 PM STORE CONSULTANT) Narrative Kirsten Burns MD - 10/17/2023 6:42 PM STORE CONSULTANT Gamal Fox NP ? 10/18/2023 ??5:08 AM Critical Care Performed by: Gamal Fox NP Authorized by: Gamal Fox NP ?? CRITICAL CARE: ??Team: ??[employer] [address] ??Shift: ??PM ??Level of Billing: ??Critical [...] plan with the ICU team and other medical/government operations consultant staff, making frequent assessments and decisions [...] Prepare RBC: 1 Units (10/17/2023 6:34 PM STORE CONSULTANT) Product code [id number] Unit Number [id number] 1-2 [facility] Product Blood Type APOS [facility] Dispense Status RETURNED [facility] Blood 10/17/2023 6:34 PM STORE CONSULTANT Narrative [facility] - 10/19/2023 7:08 AM STORE CONSULTANT Other indication->Bleeding post cardiac surgery Are special requirements needed? (All products are leukoreduced and CMV- safe)- >No Date required:-20231017 LRRBC # of [id number] Reasons:-Other (specify)} Kirsten Burns MD BLOOD BANK PRODUCT ORDER ROVERTO Final Result Performing Organization Address [facility]/ZIP Co de Phone Number [facility] [address] [facility] [place] [address] * Potassium (10/17/2023 6:14 PM STORE CONSULTANT) [facility] Potassium, pl 4.2 3.3 - 4.9 mmol/L [facility] Blood 10/17/2023 6:14 PM STORE CONSULTANT 10/17/2023 6:27 PM STORE CONSULTANT Byron Olvera [employer] LAB BLOOD ORDERABLES Fi nal Result Performing Organization Address [facility] Co de Phone Number [facility] [address] [email or web address] [address] * (ABNORMAL) CBC without differential (10/17/2023 6:12 PM STORE CONSULTANT) [facility] WBC 7.2 3.8 - 9.9 K/cumm [facility] Hgb 8.0(L) 13.0 - 17.5 g/dL [facility] Hct 24.7(L) 38.9 - 50.3 % [facility] Plt 161 150 - 400 K/cumm [facility] MPV 10.8 9.1 - 12.3 fL [facility] RBC 2.68(L) 4.30 - 5.80 M/cumm [facility] MCV 92.2 81.3 - 96.4 fL [facility] MCH 29.9 27.1 - 33.3 pg [facility] MCHC 32.4 32.3 - 35.7 g/dL [facility] RDW CV 15.5(H) 11.1 - 14.9 % [facility] RDW SD 50.4(H) 35.7 - 48.1 fL [facility] NRBC abs 0.04(H) 0.00 - 0.01 K/cumm [facility] Blood 10/17/2023 6:12 PM STORE CONSULTANT 10/17/2023 6:18 PM STORE CONSULTANT us Dawna Castellanos [employer] LAB BLOOD ORDERABLES Ann Marie l Result Performing Organization Address [facility] Co de Phone Number [facility] [address] [facility] [place] [address] * (ABNORMAL) Protime-INR (10/17/2023 6:12 PM STORE CONSULTANT) PT 13.9(H) 10.3 - 13.7 sec [facility] INR 1.22(H) 0.90 - 1.20 [facility] Comment: Interpretive data Oral anticoagulant therapeutic ranges: Venous thromboembolism prophylaxis or treatment: 2.0-3.0 CARDIOLOGY Standard range: 2.0-3.0 High-intensity range: 2.5-3.5 Refer to indication-specific guidelines for appropriate target ranges for prosthetic heart valve replacement. Current interpretive data was last revised on 2019. Blood 10/17/2023 6:12 PM STORE CONSULTANT 10/17/2023 6:18 PM STORE CONSULTANT [facility] LAB BLOOD ORDERABLES Ann Marie l Result Performing Organization Address [facility] Co de Phone Number [facility] [address] [facility] [place] [address] * Fibrinogen (10/17/2023 6:12 PM STORE CONSULTANT) Pathologist [facility] Fibrinogen 386 170 - 400 mg/dL [facility] Blood 10/17/2023 6:12 PM STORE CONSULTANT 10/17/2023 6:18 PM STORE CONSULTANT [facility] Leeann Gary [employer] LAB BLOOD ORDERABLES Ann Marie l Result Performing Organization Address City/[facility] Co de Phone Number [facility] [address] [facility] [place] [address] * aPTT (10/17/2023 6:12 PM STORE CONSULTANT) aPTT 32 28 - 38 sec [facility] Comment: Interpretive Data Heparin therapeutic range: 66.0 - 100.0 seconds. Range based on correlation with therapeutic heparin activity range of 0.3 - 0.7 Units/mL. Current interpretive data was last revised on 2023. Blood 10/17/2023 6:12 PM STORE CONSULTANT 10/17/2023 6:18 PM STORE CONSULTANT Dawna Castellanos [employer] LAB BLOOD ORDERABLES Ann Marie l Result Performing Organization Address [facility] de Phone Number [facility] [address] Department [place] [address] * (ABNORMAL) Blood gas, arterial (10/17/2023 6:12 PM STORE CONSULTANT) pH, Art 7.40 7.35 - 7.45 [facility] PCO2, Arterial 35 35 - 45 mmHg [facility] PO2, Arterial 69(L) 83 - 108 mmHg [facility] HCO3 Art (Calculated) 22 20 - 30 mmol/L [facility] BE, art -2 mmol/L [facility] Comment: Interpretive Data No Reference Range Established Current Interpretive Data was last revised on 2017 O2 Sat Art (Calculated) 94 94 - 98 % [facility] Blood 10/17/2023 6:12 PM STORE CONSULTANT 10/17/2023 6:15 PM STORE CONSULTANT Dawna Castellanos [employer] LAB BLOOD ORDERABLES Ann Marie l Result Performing Organization Address [facility] Co de Phone Number [facility] [address] Department [place] [address] * POCT glucose (10/17/2023 6:11 PM STORE CONSULTANT) Glucose, POC 130 70 - 140 mg/dL [facility] Comment: For Glucose values <35 mg/dl when Hematocrit is >60 mg/dl,the test may not accurately detect significant hypoglycemia,and testing in the Laboratory should be considered if clinically indicated. Blood 10/17/2023 6:11 PM STORE CONSULTANT 10/17/2023 6:11 PM STORE CONSULTANT Jaqueline Valero MD LAB POCT ORDERABLES - APRIL CE Final Result Performing Organization Address [facility] Co de Phone Number [facility] [address] [place] [address] * Transfuse plasma Standard plasma (10/17/2023 5:46 PM STORE CONSULTANT) Blood Kirsten Burns MD BLOOD TRANSFUSION ORDERA BLES Final Result Performing Organization Address [facility] Co de Phone Number [facility] [address] [place] [address] * Transfuse plasma: 1 Units Standard plasma (10/17/2023 5:46 PM STORE CONSULTANT) Blood Kirsten Bruns MD BLOOD TRANSFUSION ORDERA BLES Final Result * Prepare plasma: 1 Units Standard plasma (10/17/2023 5:09 PM STORE CONSULTANT) Product code [id number] Unit Number [id number] [facility] Product Blood Type APOS [facility] Dispense Status PRESUMED TRANSFUSED [facility] Blood (Blood, Venous) 10/17/2023 5:09 PM STORE CONSULTANT Narrative [facility] - 10/17/2023 10:15 PM STORE CONSULTANT Is this plasma order intended for a COVID-19 patient as convalescent plasma?->Standard plasma Special Requirements Needed?->No Date required:-[id number] FFP # of Units:-1-Units Reasons:-Active major bleeding with coagulopathy} Kirsten Burns MD BLOOD BANK PRODUCT ORDER ROVERTO Final Result Performing Organization Address [facility] Co de Phone Number [facility] [address] [place] [address] * POCT glucose (10/17/2023 4:50 PM STORE CONSULTANT) Glucose, POC 110 70 - 140 mg/dL [facility] Comment: For Glucose values <35 mg/dl when Hematocrit is >60 mg/dl,the test may not accurately detect significant hypoglycemia,and testing in the Laboratory should be considered if clinically indicated. Blood 10/17/2023 4:50 PM STORE CONSULTANT 10/17/2023 4:50 PM STORE CONSULTANT Result [facility] Jaqueline Valero MD LAB POCT ORDERABLES - APRIL CE Final Result Performing Organization Address [facility] Co de Phone Number [facility] [address] Department of [facility] [place], [place] [id number] * Transfuse plasma Standard plasma (10/17/2023 4:33 PM STORE CONSULTANT) Blood Result [facility] Kirsten Burns MD BLOOD TRANSFUSION ORDERA BLES Final Result Performing Organization Address [facility] de Phone Number [facility] [address] [place] [address] * Transfuse plasma: 1 Units Standard plasma (10/17/2023 4:33 PM STORE CONSULTANT) Blood Result [facility] Kirsten Burns MD BLOOD TRANSFUSION ORDERA BLES Final Result * Transfuse RBC (10/17/2023 4:33 PM STORE CONSULTANT) Blood Result [facility] Kirsten Burns MD BLOOD TRANSFUSION ORDERA BLES Final Result Performing Organization Address [facility] de Phone Number [facility] [address] Department [facility] [place], [place] [id number] * Transfuse RBC: 1 Units (10/17/2023 4:33 PM STORE CONSULTANT) Blood Result [facility] Kirsten Burns MD BLOOD TRANSFUSION ORDERA BLES Final Result * (ABNORMAL) CBC without differential (10/17/2023 4:32 PM STORE CONSULTANT) [facility] WBC 7.2 3.8 - 9.9 K/cumm [facility] Hgb 8.5(L) 13.0 - 17.5 g/dL [facility] Hct 26.4(L) 38.9 - 50.3 % [facility] Plt 166 150 - 400 K/cumm [facility] MPV 10.9 9.1 - 12.3 fL [facility] RBC 2.85(L) 4.30 - 5.80 M/cumm [facility] MCV 92.6 81.3 - 96.4 fL [facility] MCH 29.8 27.1 - 33.3 pg [facility] MCHC 32.2(L) 32.3 - 35.7 g/dL [facility] RDW CV 15.5(H) 11.1 - 14.9 % [facility] RDW SD 51.4(H) 35.7 - 48.1 fL [facility] NRBC abs 0.06(H) 0.00 - 0.01 K/cumm [facility] Blood 10/17/2023 4:32 PM STORE CONSULTANT 10/17/2023 4:37 PM STORE CONSULTANT Dawna Castellanos [employer] LAB BLOOD ORDERABLES Ann Marie kramer Result [facility] [address] Department [place] [address] * (ABNORMAL) aPTT (10/17/2023 4:32 PM STORE CONSULTANT) [facility] aPTT 63(H) 28 - 38 sec [facility] Comment: Interpretive Data Heparin therapeutic range: 66.0 - 100.0 seconds. Range based on correlation with therapeutic heparin activity range of 0.3 - 0.7 Units/mL. Current interpretive data was last revised on 2023. Blood 10/17/2023 4:32 PM STORE CONSULTANT 10/17/2023 4:37 PM STORE CONSULTANT Dawna Castellanos [employer] LAB BLOOD ORDERABLES Ann Marie l Result [facility] [address] [facility] [place] [address] * Fibrinogen (10/17/2023 4:32 PM STORE CONSULTANT) [facility] Fibrinogen 393 170 - 400 mg/dL [facility] Blood 10/17/2023 4:32 PM STORE CONSULTANT 10/17/2023 4:37 PM STORE CONSULTANT Dawna Bradshaw Castellanos [employer] LAB BLOOD ORDERABLES Ann Marie l Result Performing Organization Address [facility] Co de Phone Number [facility] [address] [facility] [place] [address] * (ABNORMAL) Protime-INR (10/17/2023 4:32 PM STORE CONSULTANT) [facility] PT 14.0(H) 10.3 - 13.7 sec [facility] INR 1.23(H) 0.90 - 1.20 [facility] Comment: Interpretive data Oral anticoagulant therapeutic ranges: Venous thromboembolism prophylaxis or treatment: 2.0-3.0 CARDIOLOGY Standard range: 2.0-3.0 High-intensity range: 2.5-3.5 Refer to indication-specific guidelines for appropriate target ranges for prosthetic heart valve replacement. Current interpretive data was last revised on 2019. Blood 10/17/2023 4:32 PM STORE CONSULTANT 10/17/2023 4:37 PM STORE CONSULTANT Dawna Bradshaw Gary [employer] LAB BLOOD ORDERABLES Ann Marie l Result Performing Organization Address City/[facility]/ZIP Co de Phone Number [facility] [address] [facility] [place], [place] [id number] * (ABNORMAL) Blood gas, arterial (10/17/2023 4:32 PM STORE CONSULTANT) Pathologist [facility] pH, Art 7.31(L) 7.35 - 7.45 [facility] PCO2, Arterial 45 35 - 45 mmHg [facility] PO2, Arterial 72(L) 83 - 108 mmHg [facility] HCO3 Art (Calculated) 23 20 - 30 mmol/L [facility] BE, art -4 mmol/L [facility] Comment: Interpretive Data No Reference Range Established Current Interpretive Data was last revised on 2017 O2 Sat Art (Calculated) 93(L) 94 - 98 % [facility] Blood 10/17/2023 4:32 PM STORE CONSULTANT 10/17/2023 4:35 PM STORE CONSULTANT Dawna Castellanos [employer] LAB BLOOD ORDERABLES Ann Marie l Result Performing Organization Address City/[facility]/ZIP Co de Phone Number [facility] [address] Department [place] [address] * POCT glucose (10/17/2023 3:51 PM STORE CONSULTANT) [facility] Glucose, POC 98 70 - 140 mg/dL [facility] Comment: For Glucose values <35 mg/dl when Hematocrit is >60 mg/dl,the test may not accurately detect significant hypoglycemia,and testing in the Laboratory should be considered if clinically indicated. Blood 10/17/2023 3:51 PM STORE CONSULTANT 10/17/2023 3:51 PM STORE CONSULTANT Jaqueline Valero MD LAB POCT ORDERABLES - APRIL CE Final Result Performing Organization Address [facility]/ZIP Co de Phone Number [facility] [address] Department [place] [address] * Prepare plasma: 1 Units Standard plasma (10/17/2023 3:32 PM STORE CONSULTANT) Pathologist [facility] Product code [id number] Unit Number [id number] [facility] Product Blood Type APOS [facility] Dispense Status PRESUMED TRANSFUSED [facility] Blood (Blood, Venous) 10/17/2023 3:32 PM STORE CONSULTANT Narrative [facility] - 10/17/2023 10:15 PM STORE CONSULTANT Is this plasma order intended for a COVID-19 patient as convalescent plasma?->Standard plasma Special Requirements Needed?->No Date required:-20231017 FFP # of Units:-1-Units Reasons:-Active major bleeding with coagulopathy} Result [facility] Kirsten Burns MD BLOOD BANK PRODUCT ORDER ROVERTO Final Result Performing Organization Address [facility] de Phone Number [facility] [address] [place] [address] * Prepare RBC: 1 Units (10/17/2023 3:32 PM STORE CONSULTANT) [facility] Product code [id number] Unit Number [id number] [facility] Product Blood Type APOS [facility] Dispense Status RETURNED [facility] Blood 10/17/2023 3:32 PM STORE CONSULTANT Narrative [facility] - 10/19/2023 7:08 AM STORE CONSULTANT Are special requirements needed? (All products are leukoreduced and CMV- safe)- >No Date required:-20231017 LRRBC # of [id number] Reasons:-Hemorrhagic shock/Life-threatening bleeding} Result [facility] Kirsten Burns MD BLOOD BANK PRODUCT ORDER ROVERTO Final Result Performing Organization Address [facility] de Phone Number [facility] [address] [place] [address] * POCT glucose (10/17/2023 2:34 PM STORE CONSULTANT) [facility] Glucose, POC 102 70 - 140 mg/dL [facility] Comment: For Glucose values <35 mg/dl when Hematocrit is >60 mg/dl,the test may not accurately detect significant hypoglycemia,and testing in the Laboratory should be considered if clinically indicated. Blood 10/17/2023 2:34 PM STORE CONSULTANT 10/17/2023 2:34 PM STORE CONSULTANT Result [facility] Jaqueline Valero MD LAB POCT ORDERABLES - APRIL CE Final Result Performing Organization Address [facility] de Phone Number [facility] [address] Department [place] [address] * XR Chest 1 View - Portable (10/17/2023 1:49 PM STORE CONSULTANT) Anatomical Region Laterality Modality Body, Chest N/A Computed Radiogr aphy 10/17/2023 2:01 PM STORE CONSULTANT Impressions 10/17/2023 2:01 PM STORE CONSULTANT Comparison is made to two-view chest radiograph dated 10/16/2023. ??Endotracheal tube projects approximately 4.5 cm above the boni. ??Interval postoperative changes of median sternotomy with sternal wires, sternal plating, for aortic valve replacement. ??Right internal jugular central venous catheter overlies the superior vena cava. ??[place]-Daniel catheter tip projects over the main pulmonary artery. ??Left thoracostomy tube and mediastinal drain. ??Gastric tube courses caudally beneath left hemidiaphragm out of the [id number]. Lung volumes are small with minimal bibasilar atelectasis, left greater than right. ??Possible trace left pleural effusion. ??No pneumothorax. Electronically signed by: Tania Malone M.D. Narrative 10/17/2023 2:01 PM STORE CONSULTANT EXAMINATION: 1 view chest radiograph Procedure Note Tania Malone MD - 10/17/2023 EXAMINATION: 1 view chest radiograph IMPRESSION: Comparison is made to two-view chest radiograph dated 10/16/2023. Endotracheal tube projects approximately 4.5 cm above the boni. Interval postoperative changes of median sternotomy with sternal wires, sternal plating, for aortic valve replacement. Right internal jugular central venous catheter overlies the superior vena cava. [place] catheter tip projects over the main pulmonary artery. Left thoracostomy tube and mediastinal drain. Gastric tube courses caudally beneath left hemidiaphragm out of the [id number]. Lung volumes are small with minimal bibasilar atelectasis, left greater than right. Possible trace left pleural effusion. No pneumothorax. Electronically signed by: Tania Malone M.D. Dawna Castellanos [employer]PER IMG XR PROCEDURES Final R esult * Critical Care (10/17/2023 1:44 PM STORE CONSULTANT) Narrative Kirsten Burns MD - 10/17/2023 1:44 PM STORE CONSULTANT Dawna Castellanos NP ? 10/17/2023 ??4:35 PM Critical Care Performed by: Dawna Castellanos NP Authorized by: Dawna Castellanos NP ?? CRITICAL CARE: ??Team: ??[facility] [address] ??Shift: ??AM ??Level of Billing: ??Critical [...] plan with the ICU team and other medical/government operations consultant staff, making frequent assessments and decisions [...] monitors, laboratory results, and imaging Dawna Castellanos [facility]PIE[facility]PER IN CLINIC/BEDSIDE ORDERAB LES Final Result * eGFR (10/17/2023 1:27 PM STORE CONSULTANT) [facility] eGFR 5 mL/min/1. 73 m2 [facility] Comment: Interpretive Data Reference Interval [...] last reviewed 2021. Blood 10/17/2023 1:27 PM STORE CONSULTANT 10/17/2023 1:37 PM STORE CONSULTANT Dawna Castellanos [employer] LAB BLOOD ORDERABLES Ann Marie l Result Performing Organization Address [facility]/ZIP Co de Phone Number [facility] [address] [place] [address] * Fibrinogen (10/17/2023 1:27 PM STORE CONSULTANT) Fibrinogen 393 170 - 400 mg/dL [facility] Blood 10/17/2023 1:27 PM STORE CONSULTANT 10/17/2023 1:37 PM STORE CONSULTANT Dawna Castellanos [employer] LAB BLOOD ORDERABLES Ann Marie l Result [facility] [address] [place] [address] * Lactate (10/17/2023 1:27 PM STORE CONSULTANT) Lactate 1.2 0.7 - 2.0 mmol/L [facility] Blood 10/17/2023 1:27 PM STORE CONSULTANT 10/17/2023 1:33 PM STORE CONSULTANT Dawna Castellanos [employer] LAB BLOOD ORDERABLES Ann Marie l Result Performing Organization Address [facility] Co de Phone Number [facility] [address] [facility] [place] [address] * aPTT (10/17/2023 1:27 PM STORE CONSULTANT) aPTT 37 28 - 38 sec [facility] Comment: Interpretive Data Heparin therapeutic range: 66.0 - 100.0 seconds. Range based on correlation with therapeutic heparin activity range of 0.3 - 0.7 Units/mL. Current interpretive data was last revised on 2023. Blood 10/17/2023 1:27 PM STORE CONSULTANT 10/17/2023 1:37 PM STORE CONSULTANT Dawna Bradshaw [facility] LAB BLOOD ORDERABLES Ann Marie l Result Performing Organization Address [facility] de Phone Number [facility] [address] [facility] [place] [address] * (ABNORMAL) Protime-INR (10/17/2023 1:27 PM STORE CONSULTANT) PT 14.7(H) 10.3 - 13.7 sec [facility] INR 1.29(H) 0.90 - 1.20 [facility] Comment: Interpretive data Oral anticoagulant therapeutic ranges: Venous thromboembolism prophylaxis or treatment: 2.0-3.0 CARDIOLOGY Standard range: 2.0-3.0 High-intensity range: 2.5-3.5 Refer to indication-specific guidelines for appropriate target ranges for prosthetic heart valve replacement. Current interpretive data was last revised on 2019. Blood 10/17/2023 1:27 PM STORE CONSULTANT 10/17/2023 1:37 PM STORE CONSULTANT Dawna Bradshaw [facility] LAB BLOOD ORDERABLES Ann Marie l Result Performing Organization Address [facility] Co de Phone Number [facility] [address] [facility] [place] [address] * (ABNORMAL) CBC without differential (10/17/2023 1:27 PM STORE CONSULTANT) Pathologist [facility] WBC 7.4 3.8 - 9.9 K/cumm [facility] Hgb 8.4(L) 13.0 - 17.5 g/dL [facility] Hct 26.0(L) 38.9 - 50.3 % [facility] Plt 167 150 - 400 K/cumm [facility] MPV 10.7 9.1 - 12.3 fL [facility] RBC 2.85(L) 4.30 - 5.80 M/cumm [facility] MCV 91.2 81.3 - 96.4 fL [facility] MCH 29.5 27.1 - 33.3 pg [facility] MCHC 32.3 32.3 - 35.7 g/dL [facility] RDW CV 15.4(H) 11.1 - 14.9 % [facility] RDW SD 49.8(H) 35.7 - 48.1 fL [facility] NRBC abs 0.06(H) 0.00 - 0.01 K/cumm [facility] Blood 10/17/2023 1:27 PM STORE CONSULTANT 10/17/2023 1:37 PM STORE CONSULTANT Dawna Castellanos [employer]PER LAB BLOOD ORDERABLES Ann Marie kramer Result [facility] [address] Department [place] [address] * (ABNORMAL) Blood gas, arterial (10/17/2023 1:27 PM STORE CONSULTANT) Pathologist [facility] pH, Art 7.36 7.35 - 7.45 [facility] PCO2, Arterial 42 35 - 45 mmHg [facility] PO2, Arterial 65(L) 83 - 108 mmHg [facility] HCO3 Art (Calculated) 24 20 - 30 mmol/L [facility] BE, art -2 mmol/L [facility] Comment: Interpretive Data No Reference Range Established Current Interpretive Data was last revised on 2017 O2 Sat Art (Calculated) 92(L) 94 - 98 % [facility] Blood 10/17/2023 1:27 PM STORE CONSULTANT 10/17/2023 1:33 PM STORE CONSULTANT Dawna Bradshaw Emanuel [employer] LAB BLOOD ORDERABLES Ann Marie l Result Performing Organization Address [facility] Co de Phone Number [facility] [address] [facility] [place] [address] * Calcium, ionized (10/17/2023 1:27 PM STORE CONSULTANT) [facility] Calcium, Ionized 4.51 4.50 - 5.10 mg/dL [facility] Blood 10/17/2023 1:27 PM STORE CONSULTANT 10/17/2023 1:34 PM STORE CONSULTANT Dawna Castellanos [employer] LAB BLOOD ORDERABLES Ann Marie l Result Performing Organization Address [facility] Co de Phone Number [facility] [address] [place] [address] * Magnesium (10/17/2023 1:27 PM STORE CONSULTANT) [facility] Magnesium 2.3 1.4 - 2.5 mg/dL [facility] Blood 10/17/2023 1:27 PM STORE CONSULTANT 10/17/2023 1:37 PM STORE CONSULTANT Dawna Mcginnisisaias Castellanos [employer]PER LAB BLOOD ORDERABLES Ann Marie l Result Performing Organization Address [facility] Co de Phone Number [facility] [address] [facility] [place] [address] * (ABNORMAL) Basic metabolic panel (10/17/2023 1:27 PM STORE CONSULTANT) [facility] Sodium 139 135 - 145 mmol/L [facility] Potassium, pl 3.8 3.3 - 4.9 mmol/L [facility] Chloride 98 97 - 110 mmol/L [facility] CO2 23 22 - 32 mmol/L [facility] Anion gap 18(H) 2 - 15 mmol/L [facility] BUN 75(H) 6 - 25 mg/dL [facility] Creatinine 10.43(H) 0.80 - 1.30 mg/dL [facility] Glucose 119 70 - 199 mg/dL [facility] Comment: Interpretive Data Fasting glucose [...] 2022. Calcium 8.9 8.5 - 10.3 mg/dL [facility] Blood 10/17/2023 1:2 7 PM STORE CONSULTANT 10/17/2023 1:37 PM STORE CONSULTANT Dawna Castellanos [employer] LAB BLOOD ORDERABLES Ann Marie l Result [facility] [address] [employer] [place], [place] [id number] * (ABNORMAL) Phosphorus (10/17/2023 1:27 PM STORE CONSULTANT) Phosphorus, pl 6.1(H) 2.3 - 4.5 mg/dL [facility] Blood 10/17/2023 1:27 PM STORE CONSULTANT 10/17/2023 1:37 PM STORE CONSULTANT Dawna Castellanos [employer] LAB BLOOD ORDERABLES Ann Marie l Result [facility] [address] [facility] [place] [address] * POCT glucose (10/17/2023 1:25 PM STORE CONSULTANT) Glucose, POC 137 70 - 140 mg/dL [facility] Comment: For Glucose values <35 mg/dl when Hematocrit is >60 mg/dl,the test may not accurately detect significant hypoglycemia,and testing in the Laboratory should be considered if clinically indicated. Blood 10/17/2023 1:25 PM STORE CONSULTANT 10/17/2023 1:25 PM STORE CONSULTANT Jovani Kat DO LAB POCT ORDERABLES - DE VICE Final Result Performing Organization Address City/[facility]/ZIP Co de Phone Number [facility] [address] [place] [address] * POC Activated Clotting Time, High Range (10/17/2023 12:26 PM STORE CONSULTANT) [facility] ACT 104 87 - 138 sec [facility] Blood 10/17/2023 12:2 6 PM STORE CONSULTANT 10/17/2023 12:26 PM STORE CONSULTANT Jaqueline Valero MD LAB BLOOD ORDERABLES Final Result Performing Organization Address [facility]/ZIP Co de Phone Number [facility] [address] [place] [address] * (ABNORMAL) POC Blood Gas and Chemistries, Arterial - (10/17/2023 12:26 PM STORE CONSULTANT) [facility] pH, Art POC 7.31(L) 7.35 - 7.45 [facility] pCO2, Art POC 48(H) 35 - 45 mmHg [facility] pO2, Art POC 112(H) 80 - 108 mmHg [facility] Na, POC 134(L) 135 - 145 mmol/L [facility] K POC 4.0 3.3 - 4.9 mmol/L [facility] Comment: Interpretive Data This method is not able to assess for hemolysis, which may falsely increase potassium concentrations. If further testing is needed to evaluate this result, consider in-laboratory plasma potassium. Current Interpretive Data was last revised on 2022. Cl, POC 97 97 - 110 mmol/L [facility] Ionized Ca, POC 4.80 4.50 - 5.10 mg/dL [facility] Glucose, POC 147 70 - 199 mg/dL [facility] Lactate, POC 2.9(H) 0.0 - 2.0 mmol/L [facility] O2Hb, Art POC 96.7(H) 90.0 - 95.0 % [facility] Carboxhgb fract 0.8 0.0 - 2.9 % [facility] Methemoglobin 0.6 0.0 - 1.9 % [facility] HHb, POC 1.9 0.0 - 5.0 % [facility] SO2 (oren) arterial 98(H) 90 - 95 % [facility] Total CO2, Art POC 26 22 - 32 mmol/L [facility] BE, art, POC -2.1(L) -2.0 - 2.0 mmol/L [facility] HCO3, Art POC 23 20 - 30 mmol/L [facility] Hct, POC 24.0(L) 38.9 - 50.3 % [facility] Total Hb, POC 8.1(L) 13.0 - 17.5 g/dL [facility] Blood 10/17/2023 12:2 6 PM STORE CONSULTANT 10/17/2023 12:26 PM STORE CONSULTANT Jovani Kat DO LAB POCT ORDERABLES - DE VICE Final Result Performing Organization Address [facility]/ZIP Co de Phone Number [facility] [address] [facility] [place] [address] * Transfuse platelets (10/17/2023 12:24 PM STORE CONSULTANT) Blood Ayden Alan MD BLOOD TRANSFUSION ORDERABLES F inal Result [facility] [address] [place] [address] * Transfuse RBC (10/17/2023 12:11 PM STORE CONSULTANT) Blood us Ayden Alan MD BLOOD TRANSFUSION ORDERABLES F inal Result Performing Organization Address [facility] Co de Phone Number [facility] [address] [facility] [place], [place] [id number] * Prepare RBC: 2 Units (10/17/2023 12:11 PM STORE CONSULTANT) Product code [id number] Unit Number [id number] [facility] Product Blood Type APOS [facility] Dispense Status PRESUMED TRANSFUSED [facility] Product code [id number] [facility] Unit Number [id number] [facility] Product Blood Type APOS [facility] Dispense Status PRESUMED TRANSFUSED [facility] Blood 10/17/2023 12:1 1 PM STORE CONSULTANT Narrative [facility] - 10/18/2023 10:15 PM STORE CONSULTANT Are special requirements needed? (All products are leukoreduced and CMV- safe)- >No Date required:-[id number] LRRBC # of [id number] Reasons:-Intra-op transfusion} Jaqueline Valero MD BLOOD BANK PRODUCT ORDERAB LES Final Result Performing Organization Address [facility] Co de Phone Number [facility] [address] Department [place], [place] [id number] * Transfuse cryoprecipitate (pooled units) (10/17/2023 12:05 PM STORE CONSULTANT) Blood Ayden Alan MD BLOOD TRANSFUSION ORDERABLES F inal Result Performing Organization Address [facility] Co de Phone Number [facility] [address] [facility] [place], [place] [id number] * Transfuse cryoprecipitate (pooled units) (10/17/2023 12:05 PM STORE CONSULTANT) Blood us Ayden Alan MD BLOOD TRANSFUSION ORDERABLES F inal Result Performing Organization Address [facility] Co de Phone Number [facility] [address] [facility] [place] [address] * Transfuse plasma (10/17/2023 12:04 PM STORE CONSULTANT) Blood us Ayden Alan MD BLOOD TRANSFUSION ORDERABLES F inal Result [facility] [address] [place] [address] * Transfuse plasma (10/17/2023 12:04 PM STORE CONSULTANT) Blood us Ayden Alan MD BLOOD TRANSFUSION ORDERABLES F inal Result Performing Organization Address [facility]/ZIP Co de Phone Number [facility] [address] [place] [address] * (ABNORMAL) POC Blood Gas and Chemistries, Arterial - (10/17/2023 11:51 AM STORE CONSULTANT) Pathologist [facility] pH, Art POC 7.36 7.35 - 7.45 [facility] pCO2, Art POC 39 35 - 45 mmHg [facility] pO2, Art POC 407(H) 80 - 108 mmHg [facility] Na, POC 131(L) 135 - 145 mmol/L [facility] K POC 5.5(H) 3.3 - 4.9 mmol/L [facility] Comment: Interpretive Data This method is not able to assess for hemolysis, which may falsely increase potassium concentrations. If further testing is needed to evaluate this result, consider in-laboratory plasma potassium. Current Interpretive Data was last revised on 2022. Cl, POC 97 97 - 110 mmol/L [facility] Ionized Ca, POC 3.99(L) 4.50 - 5.10 mg/dL [facility] Glucose, POC 115 70 - 199 mg/dL [facility] Lactate, POC 2.8(H) 0.0 - 2.0 mmol/L [facility] O2Hb, Art POC 97.2(H) 90.0 - 95.0 % [facility] Carboxhgb fract 0.0 0.0 - 2.9 % [facility] Methemoglobin 0.9 0.0 - 1.9 % [facility] HHb, POC 1.9 0.0 - 5.0 % [facility] SO2 (oren) arterial 98(H) 90 - 95 % [facility] Total CO2, Art POC 23 22 - 32 mmol/L [facility] BE, art, POC -3.2(L) -2.0 - 2.0 mmol/L [facility] HCO3, Art POC 22 20 - 30 mmol/L [facility] Hct, POC 24.0(L) 38.9 - 50.3 % [facility] Total Hb, POC 7.9(L) 13.0 - 17.5 g/dL [facility] Blood 10/17/2023 11:5 1 AM STORE CONSULTANT 10/17/2023 11:51 AM STORE CONSULTANT us Jovani Kat DO LAB POCT ORDERABLES - DE VICE Final Result [facility] [address] Department [place], [place] [id number] * (ABNORMAL) POC Activated Clotting Time, High Range (10/17/2023 11:50 AM STORE CONSULTANT) ACT 507(H) 87 - 138 sec [facility] Blood 10/17/2023 11:5 0 AM STORE CONSULTANT 10/17/2023 11:50 AM STORE CONSULTANT Jaqueline Valero MD LAB BLOOD ORDERABLES Final Result [facility] [address] Department [place], [place] [id number] * (ABNORMAL) POC Activated Clotting Time, High Range (10/17/2023 11:22 AM STORE CONSULTANT) ACT 582(H) 87 - 138 sec [facility] Blood 10/17/2023 11:2 2 AM STORE CONSULTANT 10/17/2023 11:22 AM STORE CONSULTANT us Jaqueline Valero MD LAB BLOOD ORDERABLES Final Result [facility] [address] Department [place] [address] * (ABNORMAL) POC Blood Gas and Chemistries, Arterial - (10/17/2023 11:20 AM STORE CONSULTANT) pH, Art POC 7.32(L) 7.35 - 7.45 [facility] pCO2, Art POC 41 35 - 45 mmHg [facility] pO2, Art POC 362(H) 80 - 108 mmHg [facility] Na, POC 130(L) 135 - 145 mmol/L [facility] K POC 4.5 3.3 - 4.9 mmol/L [facility] Comment: Interpretive Data This method is not able to assess for hemolysis, which may falsely increase potassium concentrations. If further testing is needed to evaluate this result, consider in-laboratory plasma potassium. Current Interpretive Data was last revised on 2022. Cl, POC 97 97 - 110 mmol/L [facility] Ionized Ca, POC 4.19(L) 4.50 - 5.10 mg/dL [facility] Glucose, POC 133 70 - 199 mg/dL [facility] Lactate, POC 2.1(H) 0.0 - 2.0 mmol/L [facility] O2Hb, Art POC 97.8(H) 90.0 - 95.0 % [facility] Carboxhgb fract 0.1 0.0 - 2.9 % [facility] Methemoglobin 0.5 0.0 - 1.9 % [facility] HHb, POC 1.6 0.0 - 5.0 % [facility] SO2 (oren) arterial 98(H) 90 - 95 % [facility] Total CO2, Art POC 22 22 - 32 mmol/L [facility] BE, art, POC -4.7(L) -2.0 - 2.0 mmol/L [facility] HCO3, Art POC 21 20 - 30 mmol/L [facility] Hct, POC 25.0(L) 38.9 - 50.3 % [facility] Total Hb, POC 8.2(L) 13.0 - 17.5 g/dL [facility] Blood 10/17/2023 11:2 0 AM STORE CONSULTANT 10/17/2023 11:20 AM STORE CONSULTANT Jovani Kat DO LAB POCT ORDERABLES - DE VICE Final Result Performing Organization Address [facility] Co de Phone Number [facility] [address] [facility] [place] [address] * (ABNORMAL) POC Activated Clotting Time, High Range (10/17/2023 11:05 AM STORE CONSULTANT) ACT 533(H) 87 - 138 sec [facility] Blood 10/17/2023 11:0 5 AM STORE CONSULTANT 10/17/2023 11:05 AM STORE CONSULTANT us Jaqueline Valero MD LAB BLOOD ORDERABLES Final Result Performing Organization Address [facility] Co de Phone Number [facility] [address] [facility] [place] [address] * (ABNORMAL) POC Activated Clotting Time, High Range (10/17/2023 10:53 AM STORE CONSULTANT) ACT 494(H) 87 - 138 sec [facility] Blood 10/17/2023 10:5 3 AM STORE CONSULTANT 10/17/2023 10:53 AM STORE CONSULTANT Jaqueline Valero MD LAB BLOOD ORDERABLES Final Result Performing Organization Address [facility] Co de Phone Number [facility] [address] [facility] [place] [address] * (ABNORMAL) POC Activated Clotting Time, High Range (10/17/2023 10:38 AM STORE CONSULTANT) ACT 583(H) 87 - 138 sec [facility] Blood 10/17/2023 10:3 8 AM STORE CONSULTANT 10/17/2023 10:38 AM STORE CONSULTANT us Jaqueline Valero MD LAB BLOOD ORDERABLES Final Result [facility] [address] Department [place] [address] * (ABNORMAL) POC Blood Gas and Chemistries, Arterial - (10/17/2023 10:38 AM STORE CONSULTANT) pH, Art POC 7.34(L) 7.35 - 7.45 [facility] pCO2, Art POC 42 35 - 45 mmHg [facility] pO2, Art POC 357(H) 80 - 108 mmHg [facility] Na, POC 132(L) 135 - 145 mmol/L [facility] K POC 4.7 3.3 - 4.9 mmol/L [facility] Comment: Interpretive Data This method is not able to assess for hemolysis, which may falsely increase potassium concentrations. If further testing is needed to evaluate this result, consider in-laboratory plasma potassium. Current Interpretive Data was last revised on 2022. Cl, POC 96(L) 97 - 110 mmol/L [facility] Ionized Ca, POC 4.18(L) 4.50 - 5.10 mg/dL [facility] Glucose, POC 170 70 - 199 mg/dL [facility] Lactate, POC 1.8 0.0 - 2.0 mmol/L [facility] O2Hb, Art POC 97.7(H) 90.0 - 95.0 % [facility] Carboxhgb fract 0.0 0.0 - 2.9 % [facility] Methemoglobin 0.7 0.0 - 1.9 % [facility] HHb, POC 1.5 0.0 - 5.0 % [facility] SO2 (oren) arterial 98(H) 90 - 95 % [facility] Total CO2, Art POC 24 22 - 32 mmol/L [facility] BE, art, POC -2.9(L) -2.0 - 2.0 mmol/L [facility] HCO3, Art POC 23 20 - 30 mmol/L [facility] Hct, POC 24.0(L) 38.9 - 50.3 % [facility] Total Hb, POC 8.0(L) 13.0 - 17.5 g/dL [facility] Blood 10/17/2023 10:3 8 AM STORE CONSULTANT 10/17/2023 10:38 AM STORE CONSULTANT Jovani Kat DO LAB POCT ORDERABLES - DE VICE Final Result Performing Organization Address [facility]/ZIP Co de Phone Number [facility] [address] Department of Laboratories [place], [place] [id number] * (ABNORMAL) POC Activated Clotting Time, High Range (10/17/2023 10:24 AM STORE CONSULTANT) ACT 505(H) 87 - 138 sec [facility] Blood 10/17/2023 10:2 4 AM STORE CONSULTANT 10/17/2023 10:24 AM STORE CONSULTANT us Jaqueline Valero MD LAB BLOOD ORDERABLES Final Result Performing Organization Address [facility]/ZIP Co de Phone Number [facility] [address] [place] [address] * (ABNORMAL) POC Blood Gas and Chemistries, Venous - (10/17/2023 10:21 AM STORE CONSULTANT) pH, Juice POC 7.27(L) 7.32 - 7.45 [facility] pCO2, juice POC 53(H) 40 - 50 mmHg [facility] pO2, juice POC 43(H) 35 - 42 mmHg [facility] Na, POC 133(L) 135 - 145 mmol/L [facility] K POC 4.9 3.3 - 4.9 mmol/L [facility] Comment: Interpretive Data This method is not able to assess for hemolysis, which may falsely increase potassium concentrations. If further testing is needed to evaluate this result, consider in-laboratory plasma potassium. Current Interpretive Data was last revised on 2022. Cl, POC 95(L) 97 - 110 mmol/L [facility] Ionized Ca, POC 4.19(L) 4.50 - 5.10 mg/dL [facility] Glucose, POC 182 70 - 199 mg/dL [facility] Lactate, POC 1.5 0.0 - 2.0 mmol/L [facility] O2Hb, Juice POC 67.4(L) 90.0 - 95.0 % [facility] Carboxhgb fract 0.8 0.0 - 2.9 % [facility] Methemoglobin 0.7 0.0 - 1.9 % [facility] HHb, POC 31.0(H) 0.0 - 5.0 % [facility] O2 Sat, Juice POC (Oren) 68 68 - 77 % [facility] Total CO2, juice POC 26 22 - 32 mmol/L [facility] Base excess, juice POC -2.6 mmol/L [facility] HCO3, Juice POC 22 20 - 30 mmol/L [facility] Hct, POC 23.0(L) 38.9 - 50.3 % [facility] Total Hb, POC 7.6(L) 13.0 - 17.5 g/dL [facility] Blood 10/17/2023 10:2 1 AM STORE CONSULTANT 10/17/2023 10:21 AM STORE CONSULTANT us Jovani Kat DO LAB POCT ORDERABLES - DE VICE Final Result Performing Organization Address City/[facility]/ZIP Co de Phone Number [facility] [address] Department [place] [address] * (ABNORMAL) POC Activated Clotting Time, High Range (10/17/2023 10:12 AM STORE CONSULTANT) ACT 467(H) 87 - 138 sec [facility] Blood 10/17/2023 10:1 2 AM STORE CONSULTANT 10/17/2023 10:12 AM STORE CONSULTANT us Jaqueline Valero MD LAB BLOOD ORDERABLES Final Result [facility] [address] Department [place] [address] * (ABNORMAL) POC Blood Gas and Chemistries, Arterial - (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 If further testing is needed to evaluate this result, consider in-laboratory plasma potassium. Current Interpretive Data was last revised on 2022. Cl, POC 96(L) 97 - 110 mmol/L [facility] Ionized Ca, POC 4.08(L) 4.50 - 5.10 mg/dL [facility] Glucose, POC 182 70 - 199 mg/dL [facility] Lactate, POC 1.3 0.0 - 2.0 mmol/L [facility] O2Hb, Art POC 98.1(H) 90.0 - 95.0 % [facility] Carboxhgb fract 0.3 0.0 - 2.9 % [facility] Methemoglobin 0.6 0.0 - 1.9 % [facility] HHb, POC 0.9 0.0 - 5.0 % [facility] SO2 (oren) arterial 99(H) 90 - 95 % [facility] Total CO2, Art POC 19(L) 22 - 32 mmol/L [facility] BE, art, POC -9.0(L) -2.0 - 2.0 mmol/L [facility] HCO3, Art POC 18(L) 20 - 30 mmol/L [facility] Hct, POC 22.0(L) 38.9 - 50.3 % [facility] Total Hb, POC 7.4(L) 13.0 - 17.5 g/dL [facility] Blood 10/17/2023 10:1 1 AM STORE CONSULTANT 10/17/2023 10:11 AM STORE CONSULTANT us Jovani Kat DO LAB POCT ORDERABLES - DE VICE Final Result [facility] [address] Department [place] [address] * (ABNORMAL) POC Blood Gas and Chemistries, Arterial - (10/17/2023 9:47 AM STORE CONSULTANT) [facility] pH, Art POC 7.30(L) 7.35 - 7.45 [facility] pCO2, Art POC 40 35 - 45 mmHg [facility] pO2, Art POC 65(L) 80 - 108 mmHg [facility] Na, POC 130(L) 135 - 145 mmol/L [facility] K POC 4.3 3.3 - 4.9 mmol/L [facility] Comment: Interpretive Data This method is not able to assess for hemolysis, which may falsely increase potassium concentrations. If further testing is needed to evaluate this result, consider in-laboratory plasma potassium. Current Interpretive Data was last revised on 2022. Cl, POC 97 97 - 110 mmol/L [facility] Ionized Ca, POC 4.39(L) 4.50 - 5.10 mg/dL [facility] Glucose, POC 202(H) 70 - 199 mg/dL [facility] Lactate, POC 1.1 0.0 - 2.0 mmol/L [facility] O2Hb, Art POC 90.8 90.0 - 95.0 % [facility] Carboxhgb fract 0.7 0.0 - 2.9 % [facility] Methemoglobin 0.0 0.0 - 1.9 % [facility] HHb, POC 8.5(H) 0.0 - 5.0 % [facility] SO2 (oren) arterial 91 90 - 95 % [facility] Total CO2, Art POC 21(L) 22 - 32 mmol/L [facility] BE, art, POC -6.2(L) -2.0 - 2.0 mmol/L [facility] HCO3, Art POC 20 20 - 30 mmol/L [facility] Hct, POC 26.0(L) 38.9 - 50.3 % [facility] Total Hb, POC 8.6(L) 13.0 - 17.5 g/dL [facility] Blood 10/17/2023 9:47 AM STORE CONSULTANT 10/17/2023 9:47 AM STORE CONSULTANT us Jovani Kat DO LAB POCT ORDERABLES - DE VICE Final Result Performing Organization Address City/[facility]/ZIP Co de Phone Number [facility] [address] Department of [place], [place] [id number] * (ABNORMAL) POC Activated Clotting Time, High Range (10/17/2023 9:44 AM STORE CONSULTANT) ACT 428(H) 87 - 138 sec [facility] Blood 10/17/2023 9:44 AM STORE CONSULTANT 10/17/2023 9:44 AM STORE CONSULTANT us Jaqueline Valero MD LAB BLOOD ORDERABLES Final Result Performing Organization Address City/[facility]/ZIP Co de Phone Number [facility] [address] [facility] [place] [address] * Prepare cryoprecipitate (pooled units): 2 Units (10/17/2023 9:12 AM STORE CONSULTANT) Product code [id number] Unit Number [id number]- M [facility] Product Blood Type OPOS [facility] Dispense Status PRESUMED TRANSFUSED [facility] Product code [id number] [facility] Unit Number [id number]- I [facility] Product Blood Type OPOS [facility] Dispense Status PRESUMED TRANSFUSED [facility] Blood (Blood, Venous) 10/17/2023 9:12 AM STORE CONSULTANT Narrative [facility] - 10/17/2023 10:15 PM STORE CONSULTANT Other indication->CTOR Cryo # of [id number] Reasons:-Other (Specify)} Ayden Alan MD BLOOD BANK PRODUCT ORDERABLES Final Result Performing Organization Address [facility] Co de Phone Number [facility] [address] [facility] [place] [address] * Prepare plasma: 2 Units (10/17/2023 9:12 AM STORE CONSULTANT) Product code [id number] [facility] Unit Number [id number]- Y [facility] Product Blood Type APOS [facility] Dispense Status PRESUMED TRANSFUSED [facility] Product code [id number] Unit Number [id number]- N [facility] Product Blood Type ANEG [facility] Dispense Status PRESUMED TRANSFUSED [facility] Blood (Blood, Venous) 10/17/2023 9:12 AM STORE CONSULTANT Narrative [facility] - 10/17/2023 10:15 PM STORE CONSULTANT Other indication->CTOR Date required:-20231017 FFP # of Units:-2-Units Reasons:-Other (Specify)} Ayden Alan MD BLOOD BANK PRODUCT ORDERABLES Final Result Performing Organization Address [facility] de Phone Number [facility] [address] [facility] [place] [address] * Prepare platelets: 1 Units (10/17/2023 9:12 AM STORE CONSULTANT) Product code [id number] Unit Number [id number]- A [facility] Product Blood Type BPOS [facility] Dispense Status PRESUMED TRANSFUSED [facility] Blood (Blood, Venous) 10/17/2023 9:12 AM STORE CONSULTANT Narrative [facility] - 10/17/2023 10:15 PM STORE CONSULTANT Other indication->CTOR Are special requirements needed? (all products are leukoreduced)->No Date required:-20231017 PLT # of Units:-1-Units Reasons:-Other (Specify)} Ayden Alan MD BLOOD BANK PRODUCT ORDERABLES Final Result Performing Organization Address [facility] Co de Phone Number [facility] [address] [facility] [place] [address] * POC Activated Clotting Time, High Range (10/17/2023 8:19 AM STORE CONSULTANT) [facility] ACT 97 87 - 138 sec [facility] Blood 10/17/2023 8:19 AM STORE CONSULTANT 10/17/2023 8:19 AM STORE CONSULTANT us Jaqueline Valero MD LAB BLOOD ORDERABLES Final Result Performing Organization Address [facility] Co de Phone Number [facility] [address] [facility] [place] [address] * (ABNORMAL) POCT glucose (10/17/2023 7:47 AM STORE CONSULTANT) [facility] Glucose, POC 279(H) 70 - 140 mg/dL [facility] Comment: For Glucose values <35 mg/dl when Hematocrit is >60 mg/dl,the test may not accurately detect significant hypoglycemia,and testing in the Laboratory should be considered if clinically indicated. Blood 10/17/2023 7:47 AM STORE CONSULTANT 10/17/2023 7:47 AM STORE CONSULTANT us Jovani Kat DO LAB POCT ORDERABLES - DE VICE Final Result Performing Organization Address [facility] Co de Phone Number [facility] [address] [place] [address] * (ABNORMAL) POCT glucose (10/17/2023 5:50 AM STORE CONSULTANT) [facility] Glucose, POC 307(H) 70 - 140 mg/dL [facility] Comment: For Glucose values <35 mg/dl when Hematocrit is >60 mg/dl,the test may not accurately detect significant hypoglycemia,and testing in the Laboratory should be considered if clinically indicated. Blood 10/17/2023 5:50 AM STORE CONSULTANT 10/17/2023 5:50 AM STORE CONSULTANT us Frank Cody MD LAB POCT ORDERABLES - DEVICE Fin al Result [facility] [address] Department [place] [address] * US Carotids (10/17/2023 5:10 AM STORE CONSULTANT) Anatomical Region Laterality Modality Vascular Bilateral Ultrasound 10/17/2023 1:01 PM STORE CONSULTANT Impressions 10/17/2023 1:01 PM STORE CONSULTANT 1) ??Plaquing of the right internal carotid [...] Ana Pastor MD Narrative 10/17/2023 1:01 PM STORE CONSULTANT DATE:10/17/2023 4:30 AM EXAM: Duplex imaging of [...] * (ABNORMAL) POCT glucose (10/17/2023 2:29 AM STORE CONSULTANT) Glucose, POC 288(H) 70 - 140 mg/dL [facility] Comment: For Glucose values <35 mg/dl when Hematocrit is >60 mg/dl,the test may not accurately detect significant hypoglycemia,and testing in the Laboratory should be considered if clinically indicated. Blood 10/17/2023 2:29 AM STORE CONSULTANT 10/17/2023 2:29 AM STORE CONSULTANT Frank Cody MD LAB POCT ORDERABLES - DEVICE Fin al Result Performing Organization Address [facility] Co de Phone Number [facility] [address] Department [place], [place] [id number] * (ABNORMAL) POCT glucose (10/17/2023 12:51 AM STORE CONSULTANT) Glucose, POC 242(H) 70 - 140 mg/dL [facility] Comment: For Glucose values <35 mg/dl when Hematocrit is >60 mg/dl,the test may not accurately detect significant hypoglycemia,and testing in the Laboratory should be considered if clinically indicated. Blood 10/17/2023 12:5 1 AM STORE CONSULTANT 10/17/2023 12:51 AM STORE CONSULTANT Frank Cody MD LAB POCT ORDERABLES - DEVICE Fin al Result Performing Organization Address City/[facility]/ZIP Co de Phone Number [facility] [address] Department of [place], [place] [id number] * (ABNORMAL) Differential, auto (10/17/2023 12:29 AM STORE CONSULTANT) Neutrophil abs 6.4 1.5 - 6.5 K/cumm [facility] Imm gran abs 0.2(H) 0.0 - 0.1 K/cumm [facility] Lymphocyte abs 1.6 0.8 - 3.3 K/cumm [facility] Monocyte abs 1.1(H) 0.2 - 0.8 K/cumm [facility] Eosinophil abs 0.3 0.0 - 0.5 K/cumm [facility] Basophil abs 0.0 0.0 - 0.1 K/cumm [facility] Neutrophil pct 66.0 % [facility] Comment: Interpretive Data Percent cell count reference ranges are not reported, since discordance with absolute values may lead to misinterpretation of CBC data. Current Interpretive Data was last revised on 2017. Imm gran pct 2.1 % [facility] Comment: Interpretive Data Percent cell count reference ranges are not reported, since discordance with absolute values may lead to misinterpretation of CBC data. Current Interpretive Data was last revised on 2017. Lymphocyte pct 16.8 % [facility] Comment: Interpretive Data Percent cell count reference ranges are not reported, since discordance with absolute values may lead to misinterpretation of CBC data. Current Interpretive Data was last revised on 2017. Monocyte pct 11.6 % [facility] Comment: Interpretive Data Percent cell count reference ranges are not reported, since discordance with absolute values may lead to misinterpretation of CBC data. Current Interpretive Data was last revised on 2017. Eosinophil pct 3.1 % [facility] Comment: Interpretive Data Percent cell count reference ranges are not reported, since discordance with absolute values may lead to misinterpretation of CBC data. Current Interpretive Data was last revised on 2017. Basophil pct 0.4 % [facility] Comment: Interpretive Data Percent cell count reference ranges are not reported, since discordance with absolute values may lead to misinterpretation of CBC data. Current Interpretive Data was last revised on 2017. Blood 10/17/2023 12:2 9 AM STORE CONSULTANT 10/17/2023 12:42 AM STORE CONSULTANT us Vinay Pratt DO LAB BLOOD ORDERABLES F inal Result [facility] [address] Department [place] [address] * (ABNORMAL) aPTT (10/17/2023 12:29 AM STORE CONSULTANT) [facility] aPTT 92(H) 28 - 38 sec [facility] Comment: Interpretive Data Heparin therapeutic range: 66.0 - 100.0 seconds. Range based on correlation with therapeutic heparin activity range of 0.3 - 0.7 Units/mL. Current interpretive data was last revised on 2023. Blood 10/17/2023 12:2 9 AM STORE CONSULTANT 10/17/2023 12:43 AM STORE CONSULTANT Frank Cody MD LAB BLOOD ORDERABLES Final Resul t [facility] [address] Department [place] [address] * (ABNORMAL) CBC with auto differential (10/17/2023 12:29 AM STORE CONSULTANT) [facility] WBC 9.7 3.8 - 9.9 K/cumm [facility] Hgb 9.0(L) 13.0 - 17.5 g/dL [facility] Hct 27.4(L) 38.9 - 50.3 % [facility] Plt 289 150 - 400 K/cumm [facility] MPV 10.7 9.1 - 12.3 fL [facility] RBC 3.04(L) 4.30 - 5.80 M/cumm [facility] MCV 90.1 81.3 - 96.4 fL [facility] MCH 29.6 27.1 - 33.3 pg [facility] MCHC 32.8 32.3 - 35.7 g/dL [facility] RDW CV 14.7 11.1 - 14.9 % [facility] RDW SD 46.4 35.7 - 48.1 fL [facility] NRBC abs 0.03(H) 0.00 - 0.01 K/cumm [facility] Blood 10/17/2023 12:2 9 AM STORE CONSULTANT 10/17/2023 12:42 AM STORE CONSULTANT Vinay Pratt DO LAB BLOOD ORDERABLES F inal Result Performing Organization Address [facility] Co de Phone Number [facility] [address] Department of Laboratories [place], [place] [id number] * Type and screen (10/16/2023 7:51 PM STORE CONSULTANT) Maribel, indirect Negative ABO Rh A Positive [facility] Blood 10/16/2023 7:51 PM STORE CONSULTANT 10/16/2023 8:09 PM STORE CONSULTANT Result [facility] [place] Cody MD LAB BLOOD BANK TEST ORDERABLES F inal Result Performing Organization Address [facility] de Phone Number [facility] [address] [place] [address] * POCT glucose (10/16/2023 7:49 PM STORE CONSULTANT) Glucose, POC 114 70 - 140 mg/dL [facility] Comment: For Glucose values <35 mg/dl when Hematocrit is >60 mg/dl,the test may not accurately detect significant hypoglycemia,and testing in the Laboratory should be considered if clinically indicated. Blood 10/16/2023 7:49 PM STORE CONSULTANT 10/16/2023 7:49 PM STORE CONSULTANT Frank Cody MD LAB POCT ORDERABLES - DEVICE Fin al Result Performing Organization Address [facility] de Phone Number [facility] [address] Department [place] [address] * POCT glucose (10/16/2023 5:35 PM STORE CONSULTANT) Glucose, POC 76 70 - 140 mg/dL [facility] Comment: For Glucose values <35 mg/dl when Hematocrit is >60 mg/dl,the test may not accurately detect significant hypoglycemia,and testing in the Laboratory should be considered if clinically indicated. Blood 10/16/2023 5:3 5 PM STORE CONSULTANT 10/16/2023 5:35 PM STORE CONSULTANT us Frank Cody MD LAB POCT ORDERABLES - DEVICE Fin al Result [facility] [address] Department [place] [address] * TRANSTHORACIC ECHO (TTE) COMPLETE W DOPPLER/CF W CONTRAST (10/16/2023 4:47 PM STORE CONSULTANT) Anatomical Region Laterality Modality Ultrasound 10/16/2023 11:3 9 AM STORE CONSULTANT Narrative 10/16/2023 5:02 PM STORE CONSULTANT [facility] [address] [place] [address] ECHOCARDIOGRAM Patient Name: JUVENAL GARVIN C : 1970 Study Date: 10/16/2023 11:39:54 AM Gender: M Tech: Location: [id number] Ref Provider: GUERLINE RODRIGUEZ ?Height(Cm): 178 BSA: 2.5 Weight(Kg): 126.1 BP: 125/75 ?Order Provider: GUERLINE RODRIGUEZ - PROCEDURES: Echocardiographic Report: Transthoracic Echocardiogram with 2D, M-Mode, Spectral and Color Flow Doppler examination and administration of intravenous contrast. INDICATIONS: Coronary artery disease, [place] vessel. Measurements: 2D/M Mode ? Doppler Measurement [...] regurgitation. Electronically Signed By: Dimitrios Ames MD, [facility] 2023-10-16 17:01:58 STORE CONSULTANT Procedure Note Dimitrios Ames MD - 10/16/2023 [facility] [address] [place] [address] ECHOCARDIOGRAM Patient Name: JUVENAL GARVIN C : 1970 Study Date: 10/16/2023 11:39:54 AM Gender: M Tech: Location: [id number] Ref Provider: GUERLINE RODRIGUEZ Height(Cm): 178 BSA: 2.5 Weight(Kg): 126.1 BP: 125/75 Order Provider: GUERLINE RODRIGUEZ - PROCEDURES: Echocardiographic Report: Transthoracic Echocardiogram with 2D, M-Mode, Spectral and Color FlowDoppler examination and administration of intravenous contrast. INDICATIONS: Coronary artery disease, [place] vessel. Measurements: 2D/M ModeDoppler Measurement Value Normal [...] tricuspidregurgitation. Electronically Signed By: Dimitrios Ames MD, [facility] 2023-10-16 17:01:58 STORE CONSULTANT us Guerline GRACE CV ECHO PROCEDURES Final Res ult * (ABNORMAL) aPTT (10/16/2023 3:50 PM STORE CONSULTANT) aPTT 73(H) 28 - 38 sec [facility] Comment: Interpretive Data Heparin therapeutic range: 66.0 - 100.0 seconds. Range based on correlation with therapeutic heparin activity range of 0.3 - 0.7 Units/mL. Current interpretive data was last revised on 2023. Blood 10/16/2023 3:50 PM STORE CONSULTANT 10/16/2023 3:50 PM STORE CONSULTANT us Frank Cody MD LAB BLOOD ORDERABLES Final Resul t [facility] [address] Department of Laboratories [place], [place] [id number] * (ABNORMAL) Lipid panel (10/16/2023 3:44 PM STORE CONSULTANT) Cholesterol 89 30 - 199 mg/dL [facility] Comment: Interpretive Data Ages < [...] revised on 2018. Triglycerides 106 <=149 mg/dL [facility] Comment: Interpretive Data Ages < [...] revised on 2018. HDL 34(L) >=40 mg/dL [facility] Comment: Interpretive Data Ages < [...] on 2018. LDL, calculated 34 <=129 mg/dL [facility] Comment: Interpretive Data Ages < [...] revised on 2018. Non-HDL Cholesterol 55 mg/dL [facility] Comment: Interpretive Data Ages < [...] last revised on 2018. Chol/HDL ratio 3 [facility] Blood 10/16/2023 3:44 PM STORE CONSULTANT 10/16/2023 3:53 PM STORE CONSULTANT us Jaqueline Valero MD LAB BLOOD ORDERABLES Final Result [facility] [address] Department [place] [address] * (ABNORMAL) Hemoglobin A1c (10/16/2023 3:27 PM STORE CONSULTANT) Hgb A1C 8.1(H) 4.0 - 5.6 % [facility] Estimated Average Glucose 186 mg/dL [facility] Comment: The ADA recommends reporting an estimated Average Glucose (eAG) with all Hemoglobin A1c results using the equation derived from a study of 507 normal and diabetic adults. ??Minority populations were underrepresented and children were not included. ?? (Diabetes Care 31:3279-5855, 2008). ??The eAG is not equivalent to a fasting glucose. Blood 10/16/2023 3:27 PM STORE CONSULTANT 10/16/2023 3:27 PM STORE CONSULTANT Jaqueline Valero MD LAB BLOOD ORDERABLES Final Result [facility] [address] Department [place] [address] * XR Chest PA Lateral 2 View (10/16/2023 3:12 PM STORE CONSULTANT) Anatomical Region Laterality Modality Body, Chest N/A Computed Radiogr aphy 10/16/2023 3:15 PM STORE CONSULTANT Impressions 10/16/2023 3:15 PM STORE CONSULTANT Small bilateral pleural effusions with mild bibasilar atelectasis. Small volume fluid tracks into the right minor fissure. ??Mild pulmonary edema. ??No pneumothorax. ??Heart size and mediastinal contours are unchanged. Electronically signed by: Salina Garnica M.D. Narrative 10/16/2023 3:15 PM STORE CONSULTANT EXAMINATION: XR CHEST PA LATERAL 2 VIEWS [...] * ECG 12 lead (10/16/2023 2:17 PM STORE CONSULTANT) 10/16/2023 2:17 PM STORE CONSULTANT Narrative [facility] - 10/16/2023 9:14 PM STORE CONSULTANT Vent Rate: 61 bpm RR Interval: 981 msec OR Interval: 235 msec QRS Duration: 150 msec QT Interval: 447 msec QTC Interval: 449 msec P-R-T [place]: 70 - -11 - 134 degrees IMPRESSION: SINUS RHYTHM WITH FIRST DEGREE AV BLOCK LEFT BUNDLE BRANCH BLOCK ABNORMAL ECG Electronically Signed By: Payam White MD Jaqueline Valero MD ECG ORDERABLES Final Resu lt Performing Organization Address [facility] Co de Phone Number [facility] * Prepare RBC: 3 Units (10/16/2023 2:04 PM STORE CONSULTANT) [facility] Product code [id number] [facility] Unit Number [id number] W [facility] Product Blood Type APOS [facility] Dispense Status PRESUMED TRANSFUSED [facility] Product code [id number] Unit Number [id number] * [facility] Dispense Status PRESUMED TRANSFUSED [facility] Product code [id number] [facility] Unit Number [id number] M [facility] Product Blood [facility] Dispense Status RETURNED [facility] Blood 10/16/2023 2:04 PM STORE CONSULTANT Narrative [facility] - 10/19/2023 7:08 AM STORE CONSULTANT Specify Procedure:->cabg/aortic valve replacement Are special requirements needed? (All products are leukoreduced and CMV- safe)- >No Date required:-20231017 LRRBC # of [id number] Reasons:-Hold for procedure (specify procedure)} Jaqueline Valero MD BLOOD BANK PRODUCT ORDERAB LES Final Result Performing Organization Address [facility] Co de Phone Number [facility] [address] Department [place] [address] * POCT glucose (10/16/2023 12:22 PM STORE CONSULTANT) [facility] Glucose, POC 74 70 - 140 mg/dL [facility] Comment: For Glucose values <35 mg/dl when Hematocrit is >60 mg/dl,the test may not accurately detect significant hypoglycemia,and testing in the Laboratory should be considered if clinically indicated. Blood 10/16/2023 12:2 2 PM STORE CONSULTANT 10/16/2023 12:22 PM STORE CONSULTANT us Frank Cody MD LAB POCT ORDERABLES - DEVICE Fin al Result Performing Organization Address [facility] de Phone Number [facility] [address] [facility] [place] [address] * (ABNORMAL) POCT glucose (10/16/2023 8:11 AM STORE CONSULTANT) Glucose, POC 266(H) 70 - 140 mg/dL [facility] Comment: For Glucose values <35 mg/dl when Hematocrit is >60 mg/dl,the test may not accurately detect significant hypoglycemia,and testing in the Laboratory should be considered if clinically indicated. Blood 10/16/2023 8:11 AM STORE CONSULTANT 10/16/2023 8:11 AM STORE CONSULTANT us Frank Cody MD LAB POCT ORDERABLES - DEVICE Fin al Result Performing Organization Address [facility] de Phone Number [facility] [address] [facility] [place] [address] * (ABNORMAL) POCT glucose (10/16/2023 4:48 AM STORE CONSULTANT) Glucose, POC 329(H) 70 - 140 mg/dL [facility] Comment: For Glucose values <35 mg/dl when Hematocrit is >60 mg/dl,the test may not accurately detect significant hypoglycemia,and testing in the Laboratory should be considered if clinically indicated. Blood 10/16/2023 4:48 AM STORE CONSULTANT 10/16/2023 4:48 AM STORE CONSULTANT us Frank Cody MD LAB POCT ORDERABLES - DEVICE Fin al Result Performing Organization Address [facility] de Phone Number [facility] [address] [facility] [place] [address] * (ABNORMAL) POCT glucose (10/16/2023 12:37 AM STORE CONSULTANT) Glucose, POC 158(H) 70 - 140 mg/dL [facility] Comment: For Glucose values <35 mg/dl when Hematocrit is >60 mg/dl,the test may not accurately detect significant hypoglycemia,and testing in the Laboratory should be considered if clinically indicated. Blood 10/16/2023 12:3 7 AM STORE CONSULTANT 10/16/2023 12:37 AM STORE CONSULTANT us Frank Cody MD LAB POCT ORDERABLES - DEVICE Fin al Result [facility] [address] Department [place] [address] * (ABNORMAL) Differential, auto (10/16/2023 12:31 AM STORE CONSULTANT) [facility] Neutrophil abs 4.5 1.5 - 6.5 K/cumm [facility] Imm gran abs 0.2(H) 0.0 - 0.1 K/cumm [facility] Lymphocyte abs 1.8 0.8 - 3.3 K/cumm [facility] Monocyte abs 1.0(H) 0.2 - 0.8 K/cumm [facility] Eosinophil abs 0.2 0.0 - 0.5 K/cumm [facility] Basophil abs 0.0 0.0 - 0.1 K/cumm [facility] Neutrophil pct 58.6 % [facility] Comment: Interpretive Data Percent cell count reference ranges are not reported, since discordance with absolute values may lead to misinterpretation of CBC data. Current Interpretive Data was last revised on 2017. Imm gran pct 2.1 % [facility] Comment: Interpretive Data Percent cell count reference ranges are not reported, since discordance with absolute values may lead to misinterpretation of CBC data. Current Interpretive Data was last revised on 2017. Lymphocyte pct 23.1 % [facility] Comment: Interpretive Data Percent cell count reference ranges are not reported, since discordance with absolute values may lead to misinterpretation of CBC data. Current Interpretive Data was last revised on 2017. Monocyte pct 13.2 % [facility] Comment: Interpretive Data Percent cell count reference ranges are not reported, since discordance with absolute values may lead to misinterpretation of CBC data. Current Interpretive Data was last revised on 2017. Eosinophil pct 2.5 % [facility] Comment: Interpretive Data Percent cell count reference ranges are not reported, since discordance with absolute values may lead to misinterpretation of CBC data. Current Interpretive Data was last revised on 2017. Basophil pct 0.5 % [facility] Comment: Interpretive Data Percent cell count reference ranges are not reported, since discordance with absolute values may lead to misinterpretation of CBC data. Current Interpretive Data was last revised on 2017. Blood 10/16/2023 12:3 1 AM STORE CONSULTANT 10/16/2023 12:36 AM STORE CONSULTANT Vinay Pratt DO LAB BLOOD ORDERABLES F inal Result Performing Organization Address [facility] Co de Phone Number [facility] [address] [facility] [place] [address] * (ABNORMAL) aPTT (10/16/2023 12:31 AM STORE CONSULTANT) aPTT 80(H) 28 - 38 sec [facility] Comment: Interpretive Data Heparin therapeutic range: 66.0 - 100.0 seconds. Range based on correlation with therapeutic heparin activity range of 0.3 - 0.7 Units/mL. Current interpretive data was last revised on 2023. Blood 10/16/2023 12:3 1 AM STORE CONSULTANT 10/16/2023 12:36 AM STORE CONSULTANT Frank Cody MD LAB BLOOD ORDERABLES Final Resul t Performing Organization Address [facility]/ZIP Co de Phone Number [facility] [address] [facility] [place] [address] * (ABNORMAL) CBC with auto differential (10/16/2023 12:31 AM STORE CONSULTANT) WBC 7.7 3.8 - 9.9 K/cumm [facility] Hgb 9.4(L) 13.0 - 17.5 g/dL [facility] Hct 29.7(L) 38.9 - 50.3 % [facility] Plt 330 150 - 400 K/cumm [facility] MPV 10.9 9.1 - 12.3 fL [facility] RBC 3.24(L) 4.30 - 5.80 M/cumm [facility] MCV 91.7 81.3 - 96.4 fL [facility] MCH 29.0 27.1 - 33.3 pg [facility] MCHC 31.6(L) 32.3 - 35.7 g/dL [facility] RDW CV 14.6 11.1 - 14.9 % [facility] RDW SD 47.2 35.7 - 48.1 fL [facility] NRBC abs 0.03(H) 0.00 - 0.01 K/cumm [facility] Blood 10/16/2023 12:3 1 AM STORE CONSULTANT 10/16/2023 12:36 AM STORE CONSULTANT Vinay Pratt DO LAB BLOOD ORDERABLES F inal Result [facility] [address] [place] [address] * Check Sample (10/16/2023 12:27 AM STORE CONSULTANT) Pathologist [facility] ABO Rh A Positive [facility] OTHER 10/16/2023 12:2 7 AM STORE CONSULTANT 10/16/2023 2:18 PM STORE CONSULTANT Frank Cody MD LAB BLOOD ORDERABLES Final Resul t [facility] [address] [place] [address] * POCT glucose (10/15/2023 11:20 PM STORE CONSULTANT) Glucose, POC 105 70 - 140 mg/dL [facility] Comment: For Glucose values <35 mg/dl when Hematocrit is >60 mg/dl,the test may not accurately detect significant hypoglycemia,and testing in the Laboratory should be considered if clinically indicated. Blood 10/15/2023 11:2 0 PM STORE CONSULTANT 10/15/2023 11:20 PM STORE CONSULTANT us Frank Cody MD LAB POCT ORDERABLES - DEVICE Fin al Result Performing Organization Address [facility] de Phone Number [facility] [address] [facility] [place] [address] * POCT glucose (10/15/2023 11:01 PM STORE CONSULTANT) Glucose, POC 93 70 - 140 mg/dL [facility] Comment: For Glucose values <35 mg/dl when Hematocrit is >60 mg/dl,the test may not accurately detect significant hypoglycemia,and testing in the Laboratory should be considered if clinically indicated. Glucose comment 1 Follow Protocol [facility] Blood 10/15/2023 11:0 1 PM STORE CONSULTANT 10/15/2023 11:01 PM STORE CONSULTANT Result [facility] us Frank Cody MD LAB POCT ORDERABLES - DEVICE Fin al Result Performing Organization Address [facility] de Phone Number [facility] [address] [facility] [place], [place] [id number] * POCT glucose (10/15/2023 10:45 PM STORE CONSULTANT) Glucose, POC 84 70 - 140 mg/dL [facility] Comment: For Glucose values <35 mg/dl when Hematocrit is >60 mg/dl,the test may not accurately detect significant hypoglycemia,and testing in the Laboratory should be considered if clinically indicated. Glucose comment 1 Follow Protocol [facility] Blood 10/15/2023 10:4 5 PM STORE CONSULTANT 10/15/2023 10:45 PM STORE CONSULTANT us Frank Cody MD LAB POCT ORDERABLES - DEVICE Fin al Result Performing Organization Address [facility] de Phone Number [facility] [address] [facility] [place] [address] * (ABNORMAL) POCT glucose (10/15/2023 10:26 PM STORE CONSULTANT) Glucose, POC 69(L) 70 - 140 mg/dL [facility] Comment: For Glucose values <35 mg/dl when Hematocrit is >60 mg/dl,the test may not accurately detect significant hypoglycemia,and testing in the Laboratory should be considered if clinically indicated. Blood 10/15/2023 10:2 6 PM STORE CONSULTANT 10/15/2023 10:26 PM STORE CONSULTANT Frank Cody MD LAB POCT ORDERABLES - DEVICE Fin al Result Performing Organization Address [facility] Co de Phone Number [facility] [address] [facility] [place] [address] * POCT glucose (10/15/2023 8:12 PM STORE CONSULTANT) Glucose, POC 73 70 - 140 mg/dL [facility] Comment: For Glucose values <35 mg/dl when Hematocrit is >60 mg/dl,the test may not accurately detect significant hypoglycemia,and testing in the Laboratory should be considered if clinically indicated. Blood 10/15/2023 8:12 PM STORE CONSULTANT 10/15/2023 8:12 PM STORE CONSULTANT Frank Cody MD LAB POCT ORDERABLES - DEVICE Fin al Result Performing Organization Address [facility] Co de Phone Number [facility] [address] [place] [address] * POCT glucose (10/15/2023 5:10 PM STORE CONSULTANT) Glucose, POC 72 70 - 140 mg/dL [facility] Comment: For Glucose values <35 mg/dl when Hematocrit is >60 mg/dl,the test may not accurately detect significant hypoglycemia,and testing in the Laboratory should be considered if clinically indicated. Blood 10/15/2023 5:10 PM STORE CONSULTANT 10/15/2023 5:10 PM STORE CONSULTANT us Frank Cody MD LAB POCT ORDERABLES - DEVICE Fin al Result Performing Organization Address [facility] de Phone Number [facility] [address] [facility] [place], [place] [id number] * (ABNORMAL) POCT glucose (10/15/2023 12:13 PM STORE CONSULTANT) Glucose, POC 155(H) 70 - 140 mg/dL [facility] Comment: For Glucose values <35 mg/dl when Hematocrit is >60 mg/dl,the test may not accurately detect significant hypoglycemia,and testing in the Laboratory should be considered if clinically indicated. Blood 10/15/2023 12:1 3 PM STORE CONSULTANT 10/15/2023 12:13 PM STORE CONSULTANT us Frank Cody MD LAB POCT ORDERABLES - DEVICE Fin al Result Performing Organization Address [facility] de Phone Number [facility] [address] [facility] [place], [place] [id number] * (ABNORMAL) aPTT (10/15/2023 11:25 AM STORE CONSULTANT) aPTT 59(H) 28 - 38 sec [facility] Comment: Interpretive Data Heparin therapeutic range: 66.0 - 100.0 seconds. Range based on correlation with therapeutic heparin activity range of 0.3 - 0.7 Units/mL. Current interpretive data was last revised on 2023. Blood 10/15/2023 11:2 5 AM STORE CONSULTANT 10/15/2023 11:31 AM STORE CONSULTANT us Frank Cody MD LAB BLOOD ORDERABLES Final Resul t Performing Organization Address [facility] Co de Phone Number [facility] [address] [facility] [place], [place] [id number] * CT Chest WO Contrast (10/15/2023 11:00 AM STORE CONSULTANT) Anatomical Region Laterality Modality Body N/A Computed Tomogra phy 10/15/2023 11:5 8 AM STORE CONSULTANT Impressions 10/15/2023 11:58 AM STORE CONSULTANT 1. ??Small bilateral pleural effusions with mild bibasilar atelectasis. 2. ??Mildly enlarged likely reactive mediastinal lymph nodes. Attention on follow-up is recommended. Electronically signed by: Arjun Amador M.D. Narrative 10/15/2023 11:58 AM STORE CONSULTANT EXAMINATION: ??Computed tomography of the chest without [...] * (ABNORMAL) POCT glucose (10/15/2023 7:56 AM STORE CONSULTANT) Glucose, POC 249(H) 70 - 140 mg/dL [facility] Comment: For Glucose values <35 mg/dl when Hematocrit is >60 mg/dl,the test may not accurately detect significant hypoglycemia,and testing in the Laboratory should be considered if clinically indicated. Blood 10/15/2023 7:56 AM STORE CONSULTANT 10/15/2023 7:56 AM STORE CONSULTANT Frank Cody MD LAB POCT ORDERABLES - DEVICE Fin al Result Performing Organization Address City/[facility]/ZIP Co de Phone Number [facility] [address] [place] [address] * (ABNORMAL) POCT glucose (10/15/2023 5:34 AM STORE CONSULTANT) Glucose, POC 338(H) 70 - 140 mg/dL [facility] Comment: For Glucose values <35 mg/dl when Hematocrit is >60 mg/dl,the test may not accurately detect significant hypoglycemia,and testing in the Laboratory should be considered if clinically indicated. Glucose comment 1 RN/MD Notified [facility] Blood 10/15/2023 5:34 AM STORE CONSULTANT 10/15/2023 5:34 AM STORE CONSULTANT Frank Cody MD LAB POCT ORDERABLES - DEVICE Fin al Result [facility] [address] [place] [address] * (ABNORMAL) POCT glucose (10/15/2023 4:35 AM STORE CONSULTANT) Glucose, POC 344(H) 70 - 140 mg/dL [facility] Comment: For Glucose values <35 mg/dl when Hematocrit is >60 mg/dl,the test may not accurately detect significant hypoglycemia,and testing in the Laboratory should be considered if clinically indicated. Glucose comment 1 RN/MD Notified [facility] Blood 10/15/2023 4:35 AM STORE CONSULTANT 10/15/2023 4:35 AM STORE CONSULTANT us Frank Cody MD LAB POCT ORDERABLES - DEVICE Fin al Result Performing Organization Address [facility]/ZIP Co de Phone Number [facility] [address] [place] [address] * (ABNORMAL) aPTT (10/15/2023 4:27 AM STORE CONSULTANT) aPTT 75(H) 28 - 38 sec [facility] Comment: Interpretive Data Heparin therapeutic range: 66.0 - 100.0 seconds. Range based on correlation with therapeutic heparin activity range of 0.3 - 0.7 Units/mL. Current interpretive data was last revised on 2023. Blood 10/15/2023 4:27 AM STORE CONSULTANT 10/15/2023 4:38 AM STORE CONSULTANT Narrative [facility] - 10/15/2023 4:55 AM STORE CONSULTANT Draw STAT PTT 6 hrs after initiation of heparin infusion, draw STAT PTT 6 hours after each dose change, and every 6 hours until 2 consecutive PTTs are within therapeutic range. Once two consecutive PTT's are therapeutic (66-100 seconds), then draw PTT every AM until heparin is discontinued. us Vinay Pratt DO LAB BLOOD ORDERABLES F inal Result Performing Organization Address [facility]/ZIP Co de Phone Number [facility] [address] [place] [address] * (ABNORMAL) POCT glucose (10/15/2023 1:30 AM STORE CONSULTANT) Glucose, POC 334(H) 70 - 140 mg/dL [facility] Comment: For Glucose values <35 mg/dl when Hematocrit is >60 mg/dl,the test may not accurately detect significant hypoglycemia,and testing in the Laboratory should be considered if clinically indicated. Blood 10/15/2023 1:30 AM STORE CONSULTANT 10/15/2023 1:30 AM STORE CONSULTANT us Frank Cody MD LAB POCT ORDERABLES - DEVICE Fin al Result [facility] [address] [place] [address] * (ABNORMAL) Renal function panel (10/15/2023 1:06 AM STORE CONSULTANT) [facility] Sodium 130(L) 135 - 145 mmol/L [facility] Potassium, pl 4.3 3.3 - 4.9 mmol/L [facility] Chloride 89(L) 97 - 110 mmol/L [facility] CO2 22 22 - 32 mmol/L [facility] Anion gap 19(H) 2 - 15 mmol/L [facility] BUN 78(H) 6 - 25 mg/dL [facility] Creatinine 10.57(H) 0.80 - 1.30 mg/dL [facility] Glucose 308(H) 70 - 199 mg/dL [facility] Comment: Interpretive Data Fasting glucose [...] 2022. Calcium 8.2(L) 8.5 - 10.3 mg/dL [facility] Phosphorus, pl 5.7(H) 2.3 - 4.5 mg/dL [facility] Albumin 3.3(L) 3.5 - 5.0 g/dL [facility] Blood 10/15/2023 1:06 AM STORE CONSULTANT 10/15/2023 1:20 AM STORE CONSULTANT Frank Cody MD LAB BLOOD ORDERABLES Final Resul t [facility] [address] [place] [address] * eGFR (10/15/2023 1:06 AM STORE CONSULTANT) eGFR 5 mL/min/1. 73 m2 [facility] Comment: Interpretive Data Reference Interval [...] last reviewed 2021. Blood 10/15/2023 1:06 AM STORE CONSULTANT 10/15/2023 1:20 AM STORE CONSULTANT us Frank Cody MD LAB BLOOD ORDERABLES Final Resul t Performing Organization Address [facility] Co de Phone Number [facility] [address] [facility] [place] [address] * (ABNORMAL) aPTT (10/15/2023 1:06 AM STORE CONSULTANT) aPTT 69(H) 28 - 38 sec [facility] Comment: Interpretive Data Heparin therapeutic range: 66.0 - 100.0 seconds. Range based on correlation with therapeutic heparin activity range of 0.3 - 0.7 Units/mL. Current interpretive data was last revised on 2023. Blood 10/15/2023 1:06 AM STORE CONSULTANT 10/15/2023 1:20 AM STORE CONSULTANT us Frank Cody MD LAB BLOOD ORDERABLES Final Resul t Performing Organization Address [facility] de Phone Number [facility] [address] [facility] [place] [address] * (ABNORMAL) Differential, auto (10/15/2023 1:06 AM STORE CONSULTANT) Neutrophil abs 4.3 1.5 - 6.5 K/cumm [facility] Imm gran abs 0.1 0.0 - 0.1 K/cumm [facility] Lymphocyte abs 2.2 0.8 - 3.3 K/cumm [facility] Monocyte abs 0.9(H) 0.2 - 0.8 K/cumm [facility] Eosinophil abs 0.1 0.0 - 0.5 K/cumm [facility] Basophil abs 0.0 0.0 - 0.1 K/cumm [facility] Neutrophil pct 56.6 % [facility] Comment: Interpretive Data Percent cell count reference ranges are not reported, since discordance with absolute values may lead to misinterpretation of CBC data. Current Interpretive Data was last revised on 2017. Imm gran pct 1.2 % [facility] Comment: Interpretive Data Percent cell count reference ranges are not reported, since discordance with absolute values may lead to misinterpretation of CBC data. Current Interpretive Data was last revised on 2017. Lymphocyte pct 28.4 % [facility] Comment: Interpretive Data Percent cell count reference ranges are not reported, since discordance with absolute values may lead to misinterpretation of CBC data. Current Interpretive Data was last revised on 2017. Monocyte pct 12.0 % [facility] Comment: Interpretive Data Percent cell count reference ranges are not reported, since discordance with absolute values may lead to misinterpretation of CBC data. Current Interpretive Data was last revised on 2017. Eosinophil pct 1.5 % [facility] Comment: Interpretive Data Percent cell count reference ranges are not reported, since discordance with absolute values may lead to misinterpretation of CBC data. Current Interpretive Data was last revised on 2017. Basophil pct 0.3 % [facility] Comment: Interpretive Data Percent cell count reference ranges are not reported, since discordance with absolute values may lead to misinterpretation of CBC data. Current Interpretive Data was last revised on 2017. Blood 10/15/2023 1:06 AM STORE CONSULTANT 10/15/2023 1:20 AM STORE CONSULTANT Vinay Pratt DO LAB BLOOD ORDERABLES F inal Result [facility] [address] [place] [address] * (ABNORMAL) Iron profile w/ IBC (10/15/2023 1:06 AM STORE CONSULTANT) Iron 72 50 - 150 mcg/dL [facility] TIBC 205(L) 250 - 400 mcg/dL [facility] Transferrin saturation 35 20 - 50 % [facility] Blood 10/15/2023 1:06 AM STORE CONSULTANT 10/15/2023 1:20 AM STORE CONSULTANT us Fernandez Carranza MD LAB BLOOD ORDERABLES Final Resu lt [facility] [address] [place] [address] * (ABNORMAL) Ferritin (10/15/2023 1:06 AM STORE CONSULTANT) [facility] Ferritin 1,322(H) 30 - 400 ng/mL [facility] Blood 10/15/2023 1:06 AM STORE CONSULTANT 10/15/2023 1:20 AM STORE CONSULTANT us Fernandez Carranza MD LAB BLOOD ORDERABLES Final Resu lt Performing Organization Address [facility]/ZIP Co de Phone Number [facility] [address] [place] [address] * (ABNORMAL) CBC with auto differential (10/15/2023 1:06 AM STORE CONSULTANT) [facility] WBC 7.6 3.8 - 9.9 K/cumm [facility] Hgb 9.4(L) 13.0 - 17.5 g/dL [facility] Hct 29.4(L) 38.9 - 50.3 % [facility] Plt 375 150 - 400 K/cumm [facility] MPV 11.0 9.1 - 12.3 fL [facility] RBC 3.23(L) 4.30 - 5.80 M/cumm [facility] MCV 91.0 81.3 - 96.4 fL [facility] MCH 29.1 27.1 - 33.3 pg [facility] MCHC 32.0(L) 32.3 - 35.7 g/dL [facility] RDW CV 14.0 11.1 - 14.9 % [facility] RDW SD 45.5 35.7 - 48.1 fL [facility] NRBC abs 0.02(H) 0.00 - 0.01 K/cumm [facility] Blood 10/15/2023 1:06 AM STORE CONSULTANT 10/15/2023 1:20 AM STORE CONSULTANT Vinay Pratt DO LAB BLOOD ORDERABLES F inal Result Performing Organization Address [facility]/ZIP Co de Phone Number [facility] [address] [place] [address] * (ABNORMAL) aPTT (10/14/2023 8:41 PM STORE CONSULTANT) aPTT 75(H) 28 - 38 sec [facility] Comment: Interpretive Data Heparin therapeutic range: 66.0 - 100.0 seconds. Range based on correlation with therapeutic heparin activity range of 0.3 - 0.7 Units/mL. Current interpretive data was last revised on 2023. Blood 10/14/2023 8:41 PM STORE CONSULTANT 10/14/2023 8:52 PM STORE CONSULTANT us Frank Cody MD LAB BLOOD ORDERABLES Final Resul t Performing Organization Address [facility] Co de Phone Number [facility] [address] [place] [address] * (ABNORMAL) POCT glucose (10/14/2023 8:24 PM STORE CONSULTANT) Glucose, POC 232(H) 70 - 140 mg/dL [facility] Comment: For Glucose values <35 mg/dl when Hematocrit is >60 mg/dl,the test may not accurately detect significant hypoglycemia,and testing in the Laboratory should be considered if clinically indicated. Blood 10/14/2023 8:24 PM STORE CONSULTANT 10/14/2023 8:24 PM STORE CONSULTANT us Frank Cody MD LAB POCT ORDERABLES - DEVICE Fin al Result Performing Organization Address [facility] Co de Phone Number [facility] [address] [place] [address] * (ABNORMAL) POCT glucose (10/14/2023 5:28 PM STORE CONSULTANT) Glucose, POC 217(H) 70 - 140 mg/dL [facility] Comment: For Glucose values <35 mg/dl when Hematocrit is >60 mg/dl,the test may not accurately detect significant hypoglycemia,and testing in the Laboratory should be considered if clinically indicated. Blood 10/14/2023 5:28 PM STORE CONSULTANT 10/14/2023 5:28 PM STORE CONSULTANT Result [facility] Frank Cody MD LAB POCT ORDERABLES - DEVICE Fin al Result Performing Organization Address [facility] Co de Phone Number [facility] [address] Department [place] [address] * (ABNORMAL) aPTT (10/14/2023 2:39 PM STORE CONSULTANT) aPTT 43(H) 28 - 38 sec [facility] Comment: Interpretive Data Heparin therapeutic range: 66.0 - 100.0 seconds. Range based on correlation with therapeutic heparin activity range of 0.3 - 0.7 Units/mL. Current interpretive data was last revised on 2023. Blood 10/14/2023 2:39 PM STORE CONSULTANT 10/14/2023 2:39 PM STORE CONSULTANT Abelardo Randle MD LAB BLOOD ORDERABLES Final Result Performing Organization Address [facility] de Phone Number [facility] [address] [facility] [place] [address] * POCT glucose (10/14/2023 12:15 PM STORE CONSULTANT) [facility] Glucose, POC 140 70 - 140 mg/dL [facility] Comment: For Glucose values <35 mg/dl when Hematocrit is >60 mg/dl,the test may not accurately detect significant hypoglycemia,and testing in the Laboratory should be considered if clinically indicated. Blood 10/14/2023 12:1 5 PM STORE CONSULTANT 10/14/2023 12:15 PM STORE CONSULTANT Result [facility] Frank Cody MD LAB POCT ORDERABLES - DEVICE Fin al Result Performing Organization Address [facility] Co de Phone Number [facility] [address] [place] [address] * POCT glucose (10/14/2023 11:06 AM STORE CONSULTANT) Glucose, POC 138 70 - 140 mg/dL [facility] Comment: For Glucose values <35 mg/dl when Hematocrit is >60 mg/dl,the test may not accurately detect significant hypoglycemia,and testing in the Laboratory should be considered if clinically indicated. Blood 10/14/2023 11:0 6 AM STORE CONSULTANT 10/14/2023 11:06 AM STORE CONSULTANT us Frank Cody MD LAB POCT ORDERABLES - DEVICE Fin al Result Performing Organization Address [facility] de Phone Number [facility] [address] Department [place] [address] * POCT glucose (10/14/2023 8:34 AM STORE CONSULTANT) Glucose, POC 134 70 - 140 mg/dL [facility] Comment: For Glucose values <35 mg/dl when Hematocrit is >60 mg/dl,the test may not accurately detect significant hypoglycemia,and testing in the Laboratory should be considered if clinically indicated. Blood 10/14/2023 8:34 AM STORE CONSULTANT 10/14/2023 8:34 AM STORE CONSULTANT us Frank Cody MD LAB POCT ORDERABLES - DEVICE Fin al Result Performing Organization Address [facility] de Phone Number [facility] [address] Department [place] [address] * (ABNORMAL) POCT glucose (10/14/2023 5:56 AM STORE CONSULTANT) Glucose, POC 259(H) 70 - 140 mg/dL [facility] Comment: For Glucose values <35 mg/dl when Hematocrit is >60 mg/dl,the test may not accurately detect significant hypoglycemia,and testing in the Laboratory should be considered if clinically indicated. Blood 10/14/2023 5:56 AM STORE CONSULTANT 10/14/2023 5:56 AM STORE CONSULTANT us Frank Cody MD LAB POCT ORDERABLES - DEVICE Fin al Result Performing Organization Address [facility]/State/ZIP Co de Phone Number [facility] [address] Department [place] [address] * eGFR (10/14/2023 5:53 AM STORE CONSULTANT) eGFR 5 mL/min/1. 73 m2 [facility] Comment: Interpretive Data Reference Interval [...] last reviewed 2021. Blood 10/14/2023 5:53 AM STORE CONSULTANT 10/14/2023 6:04 AM STORE CONSULTANT us Vinay Pratt DO LAB BLOOD ORDERABLES F inal Result [facility] [address] Department of Laboratories [place], [place] [id number] * (ABNORMAL) aPTT (10/14/2023 5:53 AM STORE CONSULTANT) aPTT 56(H) 28 - 38 sec [facility] Comment: Interpretive Data Heparin therapeutic range: 66.0 - 100.0 seconds. Range based on correlation with therapeutic heparin activity range of 0.3 - 0.7 Units/mL. Current interpretive data was last revised on 2023. Blood 10/14/2023 5:53 AM STORE CONSULTANT 10/14/2023 6:04 AM STORE CONSULTANT Vinay Pratt DO LAB BLOOD ORDERABLES F inal Result [facility] [address] Department [place] [address] * (ABNORMAL) Basic metabolic panel (10/14/2023 5:53 AM STORE CONSULTANT) Sodium 131(L) 135 - 145 mmol/L [facility] Potassium, pl 4.3 3.3 - 4.9 mmol/L [facility] Chloride 92(L) 97 - 110 mmol/L [facility] CO2 23 22 - 32 mmol/L [facility] Anion gap 16(H) 2 - 15 mmol/L [facility] BUN 75(H) 6 - 25 mg/dL [facility] Creatinine 10.22(H) 0.80 - 1.30 mg/dL [facility] Glucose 287(H) 70 - 199 mg/dL [facility] Comment: Interpretive Data Fasting glucose [...] 2022. Calcium 9.0 8.5 - 10.3 mg/dL [facility] Blood 10/14/2023 5:53 AM STORE CONSULTANT 10/14/2023 6:04 AM STORE CONSULTANT Vinay Pratt DO LAB BLOOD ORDERABLES F inal Result Performing Organization Address [facility] Co de Phone Number [facility] [address] [place], [place] [id number] * (ABNORMAL) POCT glucose (10/14/2023 3:58 AM STORE CONSULTANT) Glucose, POC 382(H) 70 - 140 mg/dL [facility] Comment: For Glucose values <35 mg/dl when Hematocrit is >60 mg/dl,the test may not accurately detect significant hypoglycemia,and testing in the Laboratory should be considered if clinically indicated. Blood 10/14/2023 3:58 AM STORE CONSULTANT 10/14/2023 3:58 AM STORE CONSULTANT Frank Cody MD LAB POCT ORDERABLES - DEVICE Fin al Result Performing Organization Address [facility] de Phone Number [facility] [address] [facility] [place], [place] [id number] * (ABNORMAL) POCT glucose (10/14/2023 3:04 AM STORE CONSULTANT) Glucose, POC 378(H) 70 - 140 mg/dL [facility] Comment: For Glucose values <35 mg/dl when Hematocrit is >60 mg/dl,the test may not accurately detect significant hypoglycemia,and testing in the Laboratory should be considered if clinically indicated. Blood 10/14/2023 3:04 AM STORE CONSULTANT 10/14/2023 3:04 AM STORE CONSULTANT Frank Cody MD LAB POCT ORDERABLES - DEVICE Fin al Result Performing Organization Address [facility] de Phone Number [facility] [address] [place], [place] [id number] * (ABNORMAL) POCT glucose (10/14/2023 2:05 AM STORE CONSULTANT) Glucose, POC 425(H) 70 - 140 mg/dL [facility] Comment: For Glucose values <35 mg/dl when Hematocrit is >60 mg/dl,the test may not accurately detect significant hypoglycemia,and testing in the Laboratory should be considered if clinically indicated. Blood 10/14/2023 2:05 AM STORE CONSULTANT 10/14/2023 2:05 AM STORE CONSULTANT us Frank Cody MD LAB POCT ORDERABLES - DEVICE Fin al Result [facility] [address] Department [place] [address] * eGFR (10/14/2023 1:04 AM STORE CONSULTANT) eGFR 5 mL/min/1. 73 m2 [facility] Comment: Interpretive Data Reference Interval [...] last reviewed 2021. Blood 10/14/2023 1:04 AM STORE CONSULTANT 10/14/2023 1:36 AM STORE CONSULTANT us Vinay Pratt DO LAB BLOOD ORDERABLES F inal Result [facility] [address] Department [place] [address] * (ABNORMAL) Differential, auto (10/14/2023 1:04 AM STORE CONSULTANT) Neutrophil abs 4.8 1.5 - 6.5 K/cumm [facility] Imm gran abs 0.1 0.0 - 0.1 K/cumm [facility] Lymphocyte abs 0.7(L) 0.8 - 3.3 K/cumm [facility] Monocyte abs 0.7 0.2 - 0.8 K/cumm [facility] Eosinophil abs 0.0 0.0 - 0.5 K/cumm [facility] Basophil abs 0.0 0.0 - 0.1 K/cumm [facility] Neutrophil pct 77.4 % [facility] Comment: Interpretive Data Percent cell count reference ranges are not reported, since discordance with absolute values may lead to misinterpretation of CBC data. Current Interpretive Data was last revised on 2017. Imm gran pct 1.0 % [facility] Comment: Interpretive Data Percent cell count reference ranges are not reported, since discordance with absolute values may lead to misinterpretation of CBC data. Current Interpretive Data was last revised on 2017. Lymphocyte pct 10.4 % [facility] Comment: Interpretive Data Percent cell count reference ranges are not reported, since discordance with absolute values may lead to misinterpretation of CBC data. Current Interpretive Data was last revised on 2017. Monocyte pct 11.2 % [facility] Comment: Interpretive Data Percent cell count reference ranges are not reported, since discordance with absolute values may lead to misinterpretation of CBC data. Current Interpretive Data was last revised on 2017. Eosinophil pct 0.0 % [facility] Comment: Interpretive Data Percent cell count reference ranges are not reported, since discordance with absolute values may lead to misinterpretation of CBC data. Current Interpretive Data was last revised on 2017. Basophil pct 0.0 % [facility] Comment: Interpretive Data Percent cell count reference ranges are not reported, since discordance with absolute values may lead to misinterpretation of CBC data. Current Interpretive Data was last revised on 2017. Blood 10/14/2023 1:04 AM STORE CONSULTANT 10/14/2023 1:36 AM STORE CONSULTANT Vinay Pratt LAB BLOOD ORDERABLES F inal Result Performing Organization Address [facility] de Phone Number [facility] [address] [place] [address] * (ABNORMAL) aPTT (10/14/2023 1:04 AM STORE CONSULTANT) aPTT 68(H) 28 - 38 sec [facility] Comment: Interpretive Data Heparin therapeutic range: 66.0 - 100.0 seconds. Range based on correlation with therapeutic heparin activity range of 0.3 - 0.7 Units/mL. Current interpretive data was last revised on 2023. Blood 10/14/2023 1:04 AM STORE CONSULTANT 10/14/2023 1:36 AM STORE CONSULTANT Narrative [facility] - 10/14/2023 1:49 AM STORE CONSULTANT Baseline prior to heparin initiation Vinay Favian Pratt LAB BLOOD ORDERABLES F inal Result Performing Organization Address [facility] de Phone Number [facility] [address] [facility] [place] [address] * Protime-INR (10/14/2023 1:04 AM STORE CONSULTANT) PT 13.5 10.3 - 13.7 sec [facility] INR 1.18 0.90 - 1.20 [facility] Comment: Interpretive data Oral anticoagulant therapeutic ranges: Venous thromboembolism prophylaxis or treatment: 2.0-3.0 CARDIOLOGY Standard range: 2.0-3.0 High-intensity range: 2.5-3.5 Refer to indication-specific guidelines for appropriate target ranges for prosthetic heart valve replacement. Current interpretive data was last revised on 2019. Blood 10/14/2023 1:04 AM STORE CONSULTANT 10/14/2023 1:36 AM STORE CONSULTANT Narrative [facility] - 10/14/2023 1:49 AM STORE CONSULTANT Baseline prior to heparin initiation Vinay Pratt LAB BLOOD ORDERABLES F inal Result Performing Organization Address [facility]/ZIP Co de Phone Number [facility] [address] [place] [address] * (ABNORMAL) CBC with auto differential (10/14/2023 1:04 AM STORE CONSULTANT) WBC 6.2 3.8 - 9.9 K/cumm [facility] Hgb 9.4(L) 13.0 - 17.5 g/dL [facility] Hct 29.0(L) 38.9 - 50.3 % [facility] Plt 357 150 - 400 K/cumm [facility] MPV 11.0 9.1 - 12.3 fL [facility] RBC 3.21(L) 4.30 - 5.80 M/cumm [facility] MCV 90.3 81.3 - 96.4 fL [facility] MCH 29.3 27.1 - 33.3 pg [facility] MCHC 32.4 32.3 - 35.7 g/dL [facility] RDW CV 13.6 11.1 - 14.9 % [facility] RDW SD 44.1 35.7 - 48.1 fL [facility] NRBC abs 0.00 0.00 - 0.01 K/cumm [facility] Blood 10/14/2023 1:04 AM STORE CONSULTANT 10/14/2023 1:36 AM STORE CONSULTANT Vinay Pratt LAB BLOOD ORDERABLES F inal Result Performing Organization Address [facility]/ZIP Co de Phone Number [facility] [address] [place] [address] * (ABNORMAL) Comprehensive metabolic panel (10/14/2023 1:04 AM STORE CONSULTANT) Sodium 130(L) 135 - 145 mmol/L [facility] Potassium, pl 4.3 3.3 - 4.9 mmol/L [facility] Chloride 90(L) 97 - 110 mmol/L [facility] CO2 21(L) 22 - 32 mmol/L [facility] Anion gap 19(H) 2 - 15 mmol/L [facility] BUN 66(H) 6 - 25 mg/dL [facility] Creatinine 10.57(H) 0.80 - 1.30 mg/dL [facility] Glucose 453(C) 70 - 199 mg/dL [facility] Comment: Critical result called to and read back by Brit Zeng RN on 10/14/2023 0211 to [id number] Interpretive Data Fasting glucose >/= 126 mg/dl [...] 2022. Calcium 9.2 8.5 - 10.3 mg/dL [facility] Bilirubin, total 0.3 0.1 - 1.2 mg/dL [facility] Protein, pl 6.4(L) 6.5 - 8.5 g/dL [facility] Albumin 3.4(L) 3.5 - 5.0 g/dL [facility] Alk phos 98 40 - 130 Units/L [facility] ALT 21 7 - 55 Units/L [facility] AST 28 10 - 50 Units/L [facility] Blood 10/14/2023 1:04 AM STORE CONSULTANT 10/14/2023 1:36 AM STORE CONSULTANT Vinay Pratt DO LAB BLOOD ORDERABLES F inal Result [facility] [address] Department [place] [address] * (ABNORMAL) POCT glucose (10/13/2023 11:25 PM STORE CONSULTANT) [facility] Signature Glucose, POC 534(C) 70 - 140 mg/dL [facility] Comment: For Glucose values <35 mg/dl when Hematocrit is >60 mg/dl,the test may not accurately detect significant hypoglycemia,and testing in the Laboratory should be considered if clinically indicated. Glucose comment 1 Glu2: [facility] Blood 10/13/2023 11:2 5 PM STORE CONSULTANT 10/13/2023 11:25 PM STORE CONSULTANT Frank Cody MD LAB POCT ORDERABLES - DEVICE Fin al Result Performing Organization Address [facility] Co de Phone Number [facility] [address] [place] [address] documented in this encounter Visit Diagnoses Diagnosis CAD in [place] artery- Primary CAD in [place] artery 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[place] artery of [place] heart with stable angina pectoris ([facility]) ([facility]) Aortic stenosis, severe S/P CABG x 3 Postsurgical aortocoronary bypass status NSTEMI (non-ST elevated myocardial infarction) ([facility]) ([facility]) Acute myocardial infarction, subendocardial infarction, episode of care unspecified S/P AVR Aortic valve stenosis, etiology of cardiac valve disease unspecified Coronary arteriosclerosis in [place] artery documented in this encounter Admitting Diagnoses Diagnosis CAD in [place] artery documented in this encounter Administered Medications [...] CDT 500 mg al & mag hydroxide jeymhfkjwwi-dqdjvuainmdykee-gqqsuwzif-nystatin (MAGIC MOUTHWASH) oral suspension 1-1-1-1 20 mL [...] Call MD for each episode of hypoglycemia. LASTING FLOORWORKER STATES GLUTOSE-15 CONTAINS GLUCOSE 40% W/W (50% [...] DialysisIndications:ESRD on Dialysis Given 10/27/2023 10:12 PM STORE CONSULTANT 10,000 Units Left Upper Arm Extraneal 7.5% [...] Mon10/24/23 at 0739 Given 10/24/2023 7:45 AM STORE CONSULTANT 200 mg heparin 5,000 unit/mL injection 2,000 [...] manually unheldIndications:Diabetes Mellitus Given 10/23/2023 8:03 AM STORE CONSULTANT 4 Units Right Upper Arm Given 10/22/2023 9:17 PM STORE CONSULTANT 2 Units Le ft Upper Arm Given 10/22/2023 1:39 PM STORE CONSULTANT 2 Units Ri ght Upper Arm insulin [...] unheldIndications:Diabet es Mellitus Given 10/23/2023 8:03 AM STORE CONSULTANT 4 Units Right Upper Arm insulin lispro [...] unheldIndications:Diabet es Mellitus Given 10/23/2023 8:03 AM STORE CONSULTANT 15 Units Right Upper Arm insulin NPH [...] at 0905, Intra-Op Given 10/17/2023 9:05 AM STORE CONSULTANT 50 mL Surgical Site ondansetron (ZOFRAN) injection 4 mg 4 mg, intravenous, Administer over 2 Minutes, Every 6 hours PRN, nausea, vomiting, Starting on Mon10/17/23 at 1324, Administer no sooner than 6 hours after last dose. , Indications: Nausea and VomitingIndications:Nausea and Vomiting Given 10/25/2023 9:13 AM STORE CONSULTANT 4 mg Given 10/19/2023 5:21 PM STORE CONSULTANT 4 mg Given 10/19/2023 10:48 AM STORE CONSULTANT [address] (PROTONIX) extended release [...] at 0906, Intra-Op Given 10/17/2023 9:06 AM STORE CONSULTANT 500 mL Other (Comment) polyethylene glycol (MIRALAX) packet 17 g 17 g, oral, Daily, First dose (after last modification) on Mon10/20/23 at 1045, Hold for diarrhea, Indications: constipationIndications:constip ation Given 10/30/2023 8:15 AM CDT 17 g Given 10/29/2023 8:19 AM CDT 17 g Given 10/22/2023 8:13 AM STORE CONSULTANT 17 g potassium chloride ER (KLOR-CON) extended [...] 8 m g Given 10/26/2023 10:57 PM STORE CONSULTANT 8 mg Given 10/25/2023 9:05 PM STORE CONSULTANT 8 mg senna (SENOKOT) tablet 1 tablet [...] CDT 10 mL Given 10/28/2023 12:40 AM STORE CONSULTANT 20 mL Given 10/25/2023 9:14 AM STORE CONSULTANT 10 mL sodium chloride 0.9% irrigation As needed, Starting on Mon10/17/23 at 0908, Intra-Op Given 10/17/2023 9:08 AM STORE CONSULTANT 4,000 mL Surgical Site sodium chloride tablet [...] 11/02/2023 11/03/2023 al & mag hydroxide simethicone-diphenhydrami xg-qnjlqfysi-dlzpzjms (MAGIC MOUTHWASH) oral suspension 1-1-1-1 20 mL [...] 2200, At [address] at [place]. Hold if no PD planned., Reason for [...] Call MD for each episode of hypoglycemia. LASTING FLOORWORKER STATES GLUTOSE-15 CONTAINS GLUCOSE 40% W/W (50% [...] Call MD for each episode of hypoglycemia. LASTING FLOORWORKER STATES GLUTOSE-15 CONTAINS GLUCOSE 40% W/W (50% [...] 4 024 10/23/2023 al & mag hydroxide bqlchcngmfz-zoewmjfmvtyhlir-rguaggafa-nyst atin (MAGIC MOUTHWASH) oral suspension 1-1-1-1 20 [...] TO ENDOCRINOLOGY 1 10/18/2023 IP CONSULT TO TOLL OPERATOR 1 IP CONSULT TO CARDIOLOGY 1 10/14/2023 [...] 11/03/2023 documented in this encounter Care Teams Filament Wound Parts Fabricator Relationship Specialty Start Date End Date Aditya Correa MD [address] [facility] [place] [address] PCP - General 10/17/19 documented as of this encounter
--- OUTSIDE RECORDS SUMMARY | 2024-08-24 04:44 | XMS_ITS | Encounter Summary ---
Author Organization [facility] Healthcare Address [address] [place] [address] Care Team Providers Care Rn Lactation Consultant Name Role Phone Aditya Castro MD Primary Care Provider [phone] Encounter Details Date Type Department Care Team (Late st Contact Info) Description 10/13/2023 Orders Only [facility] [address] [place] [id number] Julio Lopez DO [facility] [facility] [place] [address] Social History Tobacco Use Types Packs/Day Years Used Date Smoking Tobacco: Never Smokeless Tobacco: Former Alcohol Use Standard Drinks/Week Comments No 0 (1 standard drink = 0.6 oz pur e alcohol) [facility] Utilities Answer Date Recorded In the past 12 months has [employer], gas, oil, or water [facility] threatened to shut off services in your [...] week 10/16/2023 How often do you attend [facility] or [facility]? 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
--- OUTSIDE RECORDS SUMMARY | 2024-08-24 04:44 | XMS_ITS | Encounter Summary ---
Author Organization [facility] Address [address] [place] [address] Phone Care Team Providers Care Roll Trucker Name Role Phone Aditya Castro MD Primary Care Provider [phone] Reason for Visit * Reason Onset Date Comments NEW CONSULT 06/23/2022 Encounter Details Date Type Department Care Team (Late st Contact Info) Description 06/23/2022 Telephone [facility] Cardiology [address] 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 HUNG BRITO CALLER'S PAGER: [phone] PATIENT'S NAME: Juvenal Daigle Jr. : 1970 CAMPUS: [facility] PATIENT'S LOCATION: [address] [place] [address] REASON FOR CONSULT: CP & POST CATH ATTENDING PHYSICIAN: DR. BRITO documented in this encounter Plan of Treatment Not on file documented as of this encounter Visit Diagnoses Not on filedocumented in this encounter Care Teams Roll Trucker Relationship Specialty Start Date End Date Aditya Castro MD [address] [facility] DEPT [place] [address] PCP - General 10/17/19 documented as of this encounter
--- OUTSIDE RECORDS SUMMARY | 2024-08-24 04:44 | XMS_ITS | Encounter Summary ---
Author Organization [facility] Address [address] [address] Care Team Providers Care Net Maker Name Role Phone Aditya Castro MD Primary Care Provider [phone] Encounter Details Date Type Department Care Team (Late st Contact Info) Description 05/22/2023 Orders Only [facility] Cardiology [address] [facility] 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
--- OUTSIDE RECORDS SUMMARY | 2024-08-24 04:44 | XMS_ITS | Encounter Summary ---
Author Organization [facility] Address [address] [place] [address] Phone Care Team Providers Care Patternmaker Sample Name Role Phone Aditya Castro MD Primary Care Provider [phone] Encounter Details Date Type Department Care Team (Late st Contact Info) Description 06/15/2022 10:10 AM CDT Ancillary Procedure [facility] Vascular Lab IP 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 The common femoral, femoral, popliteal, posterior tibial, peroneal veins were evaluated for patency, spontaneity and phasicity with Doppler, compression and augmentation maneuvers. Great saphenous vein proximal at the junction was evaluated with compression maneuvers. Indications: Localized edema. Findings: Performing Mine Wedge Sawyer: Faye Zheng RVT, RDMS. Bilateral: Venous Doppler [...] performed. Electronically Signed By: Jase Mendez MD [facility] 2022-06-15 12:34:44 CDT CC: CC: Procedure Note Jase Mendez MD - 06/15/2022 [facility] - Department of Vascular Surgery,Vascular Laboratory [address] [place] [id number] Lower Extremity Venous Ultrasound Report Patient Name: JUVENAL GARVIN CPatient ID: [id number] : 1970 (51y 9m)Study Date: 06/15/2022 10:29:44 AM Gender: MAccession #: [id number] Tech: CDLocation: [id number] Ref.Provider: Leandro ADAMSality: Adequate Order Provider: Ramez ADAMS #: [id number] Procedures: Vascular Report: Venous Duplex imaging was performed bilaterally in the lower extremities.The common femoral, femoral, popliteal, posterior tibial, peroneal veins wereevaluated for patency, spontaneity and phasicity with Doppler, compression and augmentationmaneuvers. Great saphenous vein proximal at the junction was evaluated with compressionmaneuvers. Indications: Localized edema. Findings: Performing Mine Wedge Sawyer: Faye Zheng RVT, RDMS. Bilateral: Venous Doppler [...] performed. Electronically Signed By: Jase Mendez MD [facility] 2022-06-15 12:34:44 CDT CC: CC: us Kimberlee Adams MD IMG US PROCEDURES Final Res ult documented in this encounter Visit Diagnoses Not on filedocumented in this encounter Additional Health Concerns Infection Onset Date Last Indicated Resolved Time COVID: Suspected 06/15/2022 06/15/2022 06/15/2022 1:03 PM CDT documented as of this encounter Care Teams Patternmaker Sample Relationship Specialty Start Date End Date Aditya Castro MD [address] [facility] [place] [address] PCP - General 10/17/19 documented as of this encounter
--- OUTSIDE RECORDS SUMMARY | 2024-08-24 04:44 | XMS_ITS | Encounter Summary ---
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
--- OUTSIDE RECORDS SUMMARY | 2024-08-24 04:44 | XMS_ITS | Encounter Summary ---
Author Organization [facility] Healthcare Address [address] [place] [address] Care Team Providers Care Top Lifter Name Role Phone Aditya Castro MD Primary Care Provider [phone] Encounter Details Date Type Department Care Team (Late st Contact Info) Description 07/28/2023 Orders Only [facility] Medical Group Cardiology [address] [facility] [address] [facility] [address] [place] [address] Cyndi Nielson MD [address] [facility] [address] [place] [address] Social History Tobacco Use Types [...] on file 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 Gender Identity Not on file Sexual Orientation Not on file documented as of this encounter Plan of Treatment Not on file documented as of this encounter Procedures Procedure Name Priority Date/Time Associated Diagnosis Comments CARDIOLOGY DOCUMENT SCAN Routine 023 10:15 AM CENTRAL STERILIZATION TECHNICIAN documented in this encounter Results * Cardiology Document Scan (07/26/2023 10:15 AM CENTRAL STERILIZATION TECHNICIAN) Anatomical Region Laterality Modality Other us Cyndi Nielson MD CV CARDIAC SERVICES PROCEDU RES Final Result documented in this encounter Visit Diagnoses Not on filedocumented in this encounter Care Teams Top Lifter Relationship Specialty Start Date End Date Aditya Castro MD [address] [facility] [place] [address] PCP - General 10/17/19 documented as of this encounter
--- OUTSIDE RECORDS SUMMARY | 2024-08-24 04:47 | XMS_ITS | Encounter Summary ---
Author Organization [facility] Address [address] [place] [address] Care Team Providers Care Bottom Stop Attacher Name Role Phone Aditya Castro MD Primary Care Provider [phone] Reason for Visit * Auth/Cert Specialty Diagnoses / Procedures Referred By Aguilar t Referred To Contact Diagnoses Angina pectoris (HCC) NON STEMI CARDS FIRM, PD, covid neg Procedures N/A Referral ID Status Reason Start Date Expiration Date Visits Re quested Visits Authorized [id number] 1 1 Encounter Details Date Type Department Care Team (Late st Contact Info) Description 06/10/2022 10:05 AM CDT - 06/10/2022 11:50 AM CDT Surgery [facility] [address] [place] [address] Champ Osborne MD PhD [address] [place] [address] REMOVE PERC ARTERIAL VAD (IMPELLA), DIFFERENT SESSION [id number] Surgery Details Date/Time Status Location OR Service Patient Class Case Class Case Type Trauma Case? 06/10/2022 10:05 AM Posted [facility] CARDIAC SIDING INSTALLER CCL 06 Cardiovascular Inpatient Elective Panel 1 Procedure LRB Anes Op Region Wound Class Comments REMOVE PERC ARTERIAL VAD (IMPELLA), DIFFERENT SESSION [id number] N/A Choice CCU patient, will likely remove this afternoon if possible (discussed w/ Dr. Reed) Surgeon Surgeon Role Service Panel Champ Osborne MD PhD Primary Cardiovascular 1 Rafa Flores MD Fellow Cardiovascula r 1 documented in this encounter Social History [...] on file Legal Sex Male 3:42 AM SIGNALING PROJECT ENGINEER Gender Identity Not on file Sexual Orientation Not on file documented as of this encounter Last Filed Vital Signs Vital Sign Reading Time Taken Comments Blood Pressure 146/57 06/10/2022 11:11 AM CDT Pulse 67 06/10/2022 11:33 AM CDT Temperature 36.6 ??C (97.9 ??F) 06/10/2022 1 1:11 AM CDT Respiratory Rate 20 06/10/2022 11:1 1 AM CDT Oxygen Saturation 97% 06/10/2022 11: 33 AM CDT Inhaled Oxygen Concentration - - Weight 135.8 kg (299 lb 6.2 oz) 06/10/2022 6:00 AM CDT Height 177.8 cm (5' 10 ) 06/04/2022 9:35 PM CDT Body Mass Index 37.36 06/04/2022 9:35 PM CDT documented in this encounter Discharge Summaries * Frank Bowers MD - 06/29/2022 10:13 AM CST Inpatient Discharge Summary BRIEF OVERVIEW Admitting Provider: Catherine Adams MD Discharge Provider: Frank Bowers MD Primary Care Physician at Discharge: Aditya Castro MD [phone] Admission Date: 06/04/2022 Discharge Date: 06/29/2022 Admission Location: [facility] Problems/Diagnoses: Principal Problem: NSTEMI (non-ST elevated myocardial infarction) ([facility]/HCC) ([facility]) Active Problems: Cardiogenic shock (HCC) Type 1 diabetes mellitus (HCC) ESRD (end stage renal disease) (CMS/HCC) ([facility]) Acute hypoxemic respiratory failure (HCC) Anemia Acute on chronic HFrEF (heart failure with reduced ejection fraction) ([facility]) Atrial fibrillation (CMS/HCC) ([facility]) Resolved Problems: No resolved hospital problems. DETAILS OF HOSPITAL STAY Presenting Problem/History of Present Illness: As per Admission H&P AC), HTN, CAD s/p stent 04/06 and 3 stent 12/07, T1DM (insulin pump at home), ESRD on PD, HLD, GERD, hyperparathyroidism, DDD, OA, gout, BEN on CPAP initially presented to [facility] for n/v andchest pain, transferred to [facility] for LHC/PCI, now presenting to CCU s/p complex PCI with impella and intubated. At the OSH he presented with 3d generalized weakness, chills, ROONEY, n/v, chest pain relieved by sublingual ntg. His labs were notable for trop 1.0-->1.09-->0.729, BNP 18046. He had a CT CAP showing cholelithiasis [...] circumflex as optimal treatment, prompting transfer to [facility]. He arrived at [facility] 06/05. EKG showed sinus bradycardia, 1st deg [...] * NSTEMI (non-ST elevated myocardial infarction) (CMS/HCC) ([facility]) With interventions described above. Post-transfer and post-cath, [...] discharge given pressure tolerance. Atrial fibrillation (CMS/HCC) ([facility]) He was in atrial fibrillation on transfer [...] HFrEF (heart failure with reduced ejection fraction) ([facility]) He developed cardiogenic shock requiring impella in the setting of cath c/b AHRF 2/2 pulmonary edema. Post-cath, TTE demonstrated recovered EF 65% with grade I diastolic dysfunction. Volume was managed with CRRT in ICU, then by resumption of PD on the medical floor. In discussion with nephrology, low dose losartan was started for GDMT in addition to metoprolol. ESRD (end stage renal disease) ([facility]) ([facility]) Renal consulted on admission with history of ESRD on PD. While in ICU, temporary dialysis catheter was placed to facilitate CRRT for volume removal. Upon transfer to the floor, PD was continued and tolerated well. He was continued on his home vitamins for renal bone mineral disease and phoslo. Trialysis removed 06/25. Type 1 diabetes mellitus ([facility]) Prior to admission, his A1c was well [...] REMOVE PERC ARTERIAL VAD (IMPELLA), DIFFERENT SESSION [id number] Other Procedures: Pertinent Test Results: See hospital [...] one tablet three times daily Outpatient Follow-Up: ALING PROJECT ENGINEER documented in this encounter Discharge Instructions * Discharge Instructions* Frank Bowers MD - 06/29/2022 9:19 AM SIGNALING PROJECT ENGINEER Mr. Adelia Garvin, You were admitted to the hospital for chest pain, and you were seen by our cardiology specialists where you received a new stent placed. As you have improved and are tolerating your insulin pump wellas well as your dialysis, you are stable to be discharged to the rehab facility. Continue Omnipod 5 insulin pump with [employer] G6 CGM at home settings: TIME BASAL [...] yearly or sooner as indicated by your eyeglass lens cutter Pending results for primary service or primary care physician to follow up on: None at time of discharge Follow Up Plan: Follow up with endocrinology near his home 1-2 weeks after discharge to reassess glycemic management and adjust insulin pump settings as needed. ALING PROJECT ENGINEER ALING PROJECT ENGINEER documented in this encounter Medications at Time [...] Destination Discharge to an Rehab facility [facility] documented in this encounter Progress Notes * Elsie Gonzalez RN - 06/29/2022 11:30 AM CST 06/06/22 1203 Discharge Summary Chart reviewed For Medical Necessity Does patient have a planned readmission to hospital planned? No Discharge Disposition Home;Inpatient (Acute) Rehab Hospital Specify Facility [facility] Facility Contact Number Contact- Minerva Hurt- [phone] for report- [phone] fax [phone] Equipment/Provider Needs No Home Needs Identified Discharge Additional Assistance Does the patient need discharge transport arranged? No (family to transport to [facility]) Post Discharge Care Provider Post Discharge Care Plan DC Summary and post acute care report has been faxed to next level of careprovider (see Follow Up Providers) Patient is medically stable to discharge home today. Patient will have transportation provided by the patient's brother. Patient instructed to f/u with PCP after release from [facility]. No additional needs noted at this time. ALING PROJECT ENGINEER ALING PROJECT ENGINEER * Frank Bowers MD - 06/29/2022 10:12 AM CST Daily Progress Note Division of Hospital Medicine Name: Adelia Garvin Jr. Today: June 29, 2022 : 1970 Age: 51 y.o. male Admit: 06/04/2022 Bed: [id number] Subjective Chief complaint: NSTEMI Interval History: Pt [...] 06/29/2022 0815 Gross per 24 hour Intake 29933 ml Output 60260 ml Net -664 ml Physical Exam Constitutional: [...] * NSTEMI (non-ST elevated myocardial infarction) (CMS/HCC) ([facility]) Assessment & Plan With recurrent chest pain [...] rehab today ESRD (end stage renal disease) (CMS/[facility]) ([facility]) Assessment & Plan - Renal consulted, s/p CRRT in the ICU now back on PD. Tolerated well and nephrology following - Trialysis catheter removed - Continue vitamins for renal bone mineral disease. Type 1 diabetes mellitus ([facility]) Assessment & Plan A1c well controlled on [...] start of peritoneal dialysis session Atrial fibrillation (CMS/HCC) ([facility]) Assessment & Plan Converted to NSR overnight [...] including recommendations regarding insulin pump at discharge ALING PROJECT ENGINEER ALING PROJECT ENGINEER * Janelle Romero OT - 06/29/2022 9:30 AM CST Occupational [...] not assigned to this patient, please call [phone]. 06/29/22 0930 General Session Type Treatment OT [...] demonstrate modified independence/independence with ADL task completion. ALING PROJECT ENGINEER * Kip Julian PT - 06/29/2022 8:53 AM CST Physical Therapy 06/29/22 0853 General PT Missed Visit Reason Patient declined ALING PROJECT ENGINEER * Frank Bowers MD - 06/28/2022 3:30 PM CST Daily Progress Note Division of Hospital Medicine Name: Adelia Garvin Jr. Today: June 28, 2022 : 1970 Age: 51 y.o. male Admit: 06/04/2022 Bed: [id number] Subjective Chief complaint: NSTEMI Interval History: Pt [...] 06/28/2022 1300 Gross per 24 hour Intake 11416 ml Output 12922 ml Net -851 ml Physical Exam Constitutional: [...] Resolved. * NSTEMI (non-ST elevated myocardial infarction) ([facility]) ([facility]) Assessment & Plan With recurrent chest pain [...] been accepted ESRD (end stage renal disease) ([facility]) ([facility]) Assessment & Plan - Renal consulted, s/p CRRT in the ICU now back on PD. Tolerated well and nephrology following - Trialysis catheter removed - Continue vitamins for renal bone mineral disease. Type 1 diabetes mellitus ([facility]) Assessment & Plan A1c well controlled on [...] increase NPH 45u before PD Atrial fibrillation ([facility]) ([facility]) Assessment & Plan Converted to NSR overnight on 06/24. CHADsVASc of 4 not on anticoagulation prior to admission. - cardiology consulted - recommended ongoing rate control - holding off on a/c with high risk for bleeding while on DAPT - reduced metop to 25mg BID in the setting of hypotension, HR 70s NSR Acute on chronic HFrEF (heart failure with reduced ejection fraction) ([facility]) Assessment & Plan C/b cardiogenic shock requiring [...] 06/19. Patient passed barium swallow on 06/21. ALING PROJECT ENGINEER * Shelbie Garcia, RD - 06/28/2022 2:38 [...] Diabetes mellitus type I (HCC) Dialysis patient (CMS/[facility]) (HCC) ESRD on dialysis (CMS/[facility]) (HCC) GERD (gastroesophageal reflux disease) [...] of Weight Used for Estimated Protein : [place] Protein Needs Based on g/k.5 Total Protein [...] 06/28/2022 1300 Gross per 24 hour Intake 29654 ml Output 27395 ml Net -851 ml Gastrointestinal Gastrointestinal (WDL): [...] Comments: Heart Healthy Diet Question Answer Comment ([facility]) Diet type Restricted Fat / Sodium Restriction: [...] should he not care for his meal. Mae is following for management of his insulin pump. Pt seen by [facility] today. Can continue on regular textured foods [...] Stool patterns, Weight changes Shelbie Garcia RD [phone] ALING PROJECT ENGINEER * Carey East MD - 06/27/2022 4:57 PM CST Daily Progress Note Division of Hospital Medicine Name: Adelia Garvin Jr. Today: June 27, 2022 : 1970 Age: 51 y.o. male Admit: 06/04/2022 Bed: [id number] Subjective Chief complaint: CAD s/p PCI, T1DM, [...] 06/27/2022 0745 Gross per 24 hour Intake 23344 ml Output 87908 ml Net -1949 ml Physical Exam Constitutional: [...] transferred to the floor, improving. Atrial fibrillation ([facility]) ([facility]) Assessment & Plan Converted to NSR overnight on 06/24. CHADsVASc of 4 not on anticoagulation prior to admission. - cardiology consulted - recommended ongoing rate control - holding off on a/c with high risk for bleeding while on DAPT - reduced metop to 25mg BID in the setting of hypotension, HR 70s NSR Acute on chronic HFrEF (heart failure with reduced ejection fraction) ([facility]) Assessment & Plan C/b cardiogenic shock requiring impella in the setting of cath and AHRF 2/2 pulmonary edema, now resolved. TTE demonstrating recovered EF 65% with grade I diastolic dysfunction. - metop as above - continue low dose losartan 12.5mg daily, ok per nephro - volume management per PD ESRD (end stage renal disease) ([facility]) ([facility]) Assessment & Plan - Renal consulted, s/p CRRT in the ICU now back on PD. - Continue vitamins for renal bone mineral disease - continue phoslo Type 1 diabetes mellitus ([facility]) Assessment & Plan A1c well controlled on [...] PD * NSTEMI (non-ST elevated myocardial infarction) ([facility]) ([facility]) Assessment & Plan With recurrent chest pain [...] recs, CM aware and searching for facilities ALING PROJECT ENGINEER * Arleen Andre MD - 06/27/2022 3:50 PM CST ASSESSMENT AND RECOMMENDATIONS ESRD: He is doing well on the current PD regimen. Ultrafilters approximately 6011-8900 ml/day. Continue current regimen Hypokalemia: Start Kcl [...] (mL): 785 mL Fill Volume In (mL): 29319 mL Effluent Volume Out (mL): 92758 ml Balance This Exchange (mL): 1944 mL [...] edema I/O last 2 completed shifts: In: 16950 [P.O.:440; Other:34697] Out: 29275 [Urine:300; Other:48488] I have reviewed current medications and the [...] FERRITIN 2,062 (H) 06/07/2022 Arleen Andre MD environmental compliance officer Division of Nephrology ALING PROJECT ENGINEER * So Lawrence, OT - 06/27/2022 9:37 [...] not assigned to this patient, please call [phone]. 06/27/22 0937 General Session Type Treatment OT [...] demonstrate modified independence/independence with ADL task completion. ALING PROJECT ENGINEER * aCrlos Dupree MD - 06/26/2022 4:13 PM CST Endocrinology & Diabetes Progress Note Patient: Adelia Garvin Jr., 51 y.o. male (: 1970) Room: [place] [id number] ( ) LOS: 22 Adelia Garvin Jr. [...] agitation. 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, complicated by ESRD on PD, CAD s/p PCI, CHF - HbA1c 7.4% - Uses Omnipod and Dexcom G6 at home, not currently on this- doesn't have the supplies -On significantly higher basal rates on pump at night due to peritoneal dialysis -home settings: Basal rate 0330 >>1.7 0800 >> 0.8 2000 >> 5.8 ICR1:6.5 ISF1:25 PNC796 TIA 4 Inpatient glycemic management complicated by [...] ## Discharge Planning - Follow-up with home deblocker -- Carlos Dupree MD Endocrinology, Metabolism, & Lipid Research Contact Info: New Consults: [phone]) General Endocrine (Non-Diabetes): [phone] (Check 'Treatment Team' assignment for Diabetes 1 vs 2 vs 3) Diabetes 1: Diabetes Fellow: [phone] Diabetes 2: Dora Delarosa, SECURITY OPERATIONS CENTER ANALYST: [phone] Diabetes 3: See Treatment Team Provider (or call Dora Delarosa, above) Diabetes After-Hours & Weekends: Diabetes Fellow ALING PROJECT ENGINEER * Carey East MD - 06/26/2022 12:39 PM CST Daily Progress Note Division of Hospital Medicine Name: Adelia Garvin Jr. Today: June 26, 2022 : 1970 Age: 51 y.o. male Admit: 06/04/2022 Bed: [id number] Subjective Chief complaint: CAD s/p PCI, T1DM, [...] 06/26/2022 1110 Gross per 24 hour Intake 81193 ml Output 74400 ml Net -1847 ml Physical Exam Constitutional: [...] transferred to the floor, improving. Atrial fibrillation ([facility]) ([facility]) Assessment & Plan Converted to NSR overnight on 06/24. CHADsVASc of 4 not on anticoagulation prior to admission. - cardiology consulted - recommended ongoing rate control - holding off on a/c with high risk for bleeding while on DAPT - reduce metop to 25mg BID today in the setting of hypotension, HR 60s Acute on chronic HFrEF (heart failure with reduced ejection fraction) ([facility]) Assessment & Plan C/b cardiogenic shock requiring impella in the setting of cath and AHRF 2/2 pulmonary edema, now resolved. TTE demonstrating recovered EF 65% with grade I diastolic dysfunction. - metop as above - continue low dose losartan 12.5mg daily, ok per nephro - volume management per PD ESRD (end stage renal disease) ([facility]) ([facility]) Assessment & Plan - Renal consulted, s/p CRRT in the ICU now back on PD. - Trialysis catheter still in place --> removed today - Continue vitamins for renal bone mineral disease - resume phoslo today Type 1 diabetes mellitus ([facility]) Assessment & Plan A1c well controlled on [...] PD * NSTEMI (non-ST elevated myocardial infarction) ([facility]) ([facility]) Assessment & Plan With recurrent chest pain. [...] acute rehab per PT recs, CM aware ALING PROJECT ENGINEER * Carey East MD - 06/25/2022 11:51 AM CDT Daily Progress Note Division of Hospital Medicine Name: Adelia Garvin Jr. Today: June 25, 2022 : 1970 Age: 51 y.o. male Admit: 06/04/2022 Bed: [place] [id number]/[id number] Subjective Chief complaint: CAD s/p PCI, T1DM, [...] 06/25/2022 0600 Gross per 24 hour Intake 04335 ml Output 30133 ml Net -2404 ml Physical Exam Constitutional: [...] HFrEF (heart failure with reduced ejection fraction) ([facility]) Assessment & Plan C/b cardiogenic shock requiring impella in the setting of cath and AHRF 2/2 pulmonary edema, now resolved. TTE demonstrating recovered EF 65% with grade I diastolic dysfunction. - metop as above - start low dose losartan 12.5mg daily today, ok per nephro - volume management per PD ESRD (end stage renal disease) ([facility]) ([facility]) Assessment & Plan - Renal consulted, s/p CRRT in the ICU now back on PD. - Trialysis catheter still in place --> removed today - Continue vitamins for renal bone mineral disease. Type 1 diabetes mellitus ([facility]) Assessment & Plan A1c well controlled on [...] today * NSTEMI (non-ST elevated myocardial infarction) ([facility]) ([facility]) Assessment & Plan With recurrent chest pain. [...] decrease to daily Acute hypoxemic respiratory failure ([facility]) Assessment & Plan Secondary to ACS and flash pulmonary edema, since resolved and extubated on 06/19. Patient passed barium swallow on 06/21. Cardiogenic shock ([facility]) Assessment & Plan Secondary to NSTEMI, s/p Impella since removed on 06/10. Resolved. Post-acute planning: - inpatient acute rehab per PT recs, CM aware * Chula Melgar, OT - 06/25/2022 9:25 AM CDT Occupational [...] mobility Prior Function Prior Function Level of [place]: Independent with ADLs, Independent functional transfers, Independent [...] not assigned to this patient, please call [phone]. * Carey East MD - 06/24/2022 4:30 PM CDT Daily Progress Note Division of Hospital Medicine Name: Adelia Garvin Jr. Today: June 24, 2022 : 1970 Age: 51 y.o. male Admit: 06/04/2022 Bed: [id number] Subjective Chief complaint: CAD s/p PCI, T1DM, [...] 06/24/2022 0536 Gross per 24 hour Intake 92063 ml Output 14723 ml Net -347 ml Physical Exam Constitutional: [...] Glu2: LUAN/ Notified POCT glucose Collection Time: 06/24/22 9:54 AM Result Value Ref Range Glucose, POC 411 (H) 70 - 199 mg/dL POCT glucose Collection Time: 06/24/22 11:31 AM Result Value Ref Range Glucose, POC 346 (H) 70 - 199 mg/dL Glucose comment 1 Glu2: LUAN/ Notified POCT glucose Collection Time: 06/24/22 12:53 PM Result Value Ref Range Glucose, POC 275 (H) 70 - 199 mg/dL Glucose comment 1 Glu2: LUAN/ Notified I have reviewed the laboratory results. [...] with new chest pressure today. Atrial fibrillation ([facility]/HCC) ([facility]) Assessment & Plan Currently rated controlled with metoprolol, CHADsVASc of 4 not on anticoagulation prior to admission. Rates have been consistently 90-100, not optimal for HF and possibly contributing to demand/chestpain yesterday. - cardiology consulted - consolidated metop to 50mg BID today --> will uptitrate as tolerated by BP for improved HR control Acute on chronic HFrEF (heart failure with reduced ejection fraction) ([facility]) Assessment & Plan C/b cardiogenic shock requiring impella in the setting of cath and AHRF 2/2 pulmonary edema, now resolved. TTE demonstrating recovered EF 65% with grade I diastolic dysfunction. - metop as above - not on NICOLÁS/ARB due to ESRD, d/w nephro - volume management per PD ESRD (end stage renal disease) ([facility]) ([facility]) Assessment & Plan - Renal consulted, s/p CRRT in the ICU now back on PD. - Trialysis catheter still in place --> will remove tomorrow - Continue vitamins for renal bone mineral disease. Type 1 diabetes mellitus ([facility]) Assessment & Plan A1c well controlled on [...] use * NSTEMI (non-ST elevated myocardial infarction) ([facility]) ([facility]) Assessment & Plan With recurrent chest pain. [...] Weakness, N/V, diarrhea, chest pain. Resp failure, [id number]: S/p complex PCI and Impella placement for [...] No Prior Function Prior Function Level of [place]: Independent functional transfers, Independent with ambulation Lives [...] treatment team and contact the PT or CADMIUM LIQUOR MAKER currently assigned to this patient. If a physical therapy clinician is not assigned to this patient, please call [phone]. * Carey East MD - 06/23/2022 4:37 PM CDT Daily Progress Note Division of [facility] Medicine Name: Adelia Garvin Jr. Today: June 23, 2022 : 1970 Age: 51 y.o. male Admit: 06/04/2022 Bed: [id number] Subjective Chief complaint: CAD s/p PCI, T1DM, [...] 06/23/2022 0625 Gross per 24 hour Intake 46581 ml Output 18721 ml Net -2575 ml Physical Exam Constitutional: [...] EKG/Min 100 BPM Atrial Rate 100 BPM MT-Interval (MSEC) 182 ms QRS-Interval (MSEC) 106 ms QT-Interval (MSEC) 380 ms QTc 490 ms R [place] -47 degrees T [place] 105 degrees Diagnosis Sinus rhythm with Premature [...] Trop I hs base Called/Read Back Fartun Ramsay Credentials RN Called By dga POCT glucose Collection Time: 06/23/22 2:25 PM [...] since removed on 06/10. Resolved. Atrial fibrillation ([facility]) ([facility]) Assessment & Plan Currently rated controlled with metoprolol, CHADsVASc of 4 not on anticoagulation prior to admission. - cardiology consulted - metop as elsewhere Acute on chronic HFrEF (heart failure with reduced ejection fraction) ([facility]) Assessment & Plan C/b cardiogenic shock requiring impella in the setting of cath and AHRF 2/2 pulmonary edema, now resolved. TTE demonstrating recovered EF 65% with grade I diastolic dysfunction. - consolidate metoprolol today: 25 q6h --> 50mg BID - not on NICOLÁS/ARB due to ESRD, will d/w nephro - volume management per PD ESRD (end stage renal disease) ([facility]) ([facility]) Assessment & Plan - Renal consulted, s/p [...] swallow on 06/21. Type 1 diabetes mellitus ([facility]) Assessment & Plan A1c well controlled on [...] use * NSTEMI (non-ST elevated myocardial infarction) ([facility]) ([facility]) Assessment & Plan With recurrent chest pain. He has multiple risk factors for CAD, now s/p complex PCI to LCx and OM bifurcation with MARIELLA. - Continue DAPT with aspirin, Plavix and atorvastatin - trend trops today - cardiology re-consulted - tele * PedroRonny - 06/23/2022 12:02 PM CDT Nutrition Assessment [...] gout, BEN on CPAP initially presented to [facility] for generalized weakness, n/v, diarrhea, and chest pain now being transferred for LHC/PCI 06/06. Objective Past Medical History: Diagnosis Date CAD (coronary artery disease) Chest pain Diabetes mellitus (HCC) Diabetes mellitus type I (HCC) Dialysis patient ([facility]) (HCC) ESRD on dialysis ([facility]) (HCC) GERD (gastroesophageal reflux disease) [...] of Weight Used for Estimated Protein : [place] Protein Needs Based on g/k.5 Total Protein [...] 06/23/2022 0625 Gross per 24 hour Intake 77128 ml Output 68726 ml Net -2575 ml Gastrointestinal Gastrointestinal (WDL): [...] Comments: Heart Healthy Diet Question Answer Comment ([facility]) Diet type Restricted Fat / Sodium Restriction: [...] Supplement tolerance Ronny Vasquez MS RDN LD Treating Inspector RD number [phone] * Luiz Lewis, - 06/22/2022 8:22 PM CDT Transfer Note [...] at 06/22/20221944 Gross per 24 hour Intake 27703 ml Output 40863 ml Net -2209 ml Constitutional - chronically [...] Impella since removed on 06/10. Atrial fibrillation ([facility]/HCC) ([facility]) Assessment & Plan -Currently rated controlled with metoprolol, CHADsVASc of 4 not on anticoagulation prior to admission. -Follow cardiology for initiation of AC. Acute on chronic HFrEF (heart failure with reduced ejection fraction) ([facility]) Assessment & Plan -With acute exacerbation complicated by pulmonary edema since resolved. -Repeat TTE following Impella removal showed recovered EF of 65% with grade I diastolic dysfunction. -Continue metoprolol tartrate, start GDMT per cardiology. ESRD (end stage renal disease) (CMS/HCC) ([facility]) Assessment & Plan -Renal consulted, s/p CRRT [...] aspirin, Plavix and atorvastatin. Luiz Lewis DO [facility] Medicine * Tyra De La Torre MD - 06/22/2022 4:17 PM CDT CCU DAILY PROGRESS Patient: Adelia Garvin Jr. Room: [place] [address]/[place] [address] Date: 06/22/2022 Summary Statement: Adelia Garvin Jr. is a 51 y.o. male with a history of CHF (EF 50% 2016), Afib (not on AC), HTN, CAD s/p stent 04/06 and 3 stent 12/07, T1DM (insulin pump at home), ESRD on PD, HLD, GERD, hyperparathyroidism, DDD, OA, gout, BEN on CPAP initially presented to [facility]SH for n/v and chest pain, transferred to [facility] for LHC/PCI, who presented to CCU s/p [...] 06/22/2022 0500 Gross per 24 hour Intake 08460 ml Output 71723 ml Net -1759 ml Ventilator Settings: N/a [...] in anterior wall and anterior septem sugegsting CAD/FL in the LAD territory. 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 #Nutrition - continue tube feeds - RHIA eval - remove NGT and restart diet [...] HEME/ONC #Anemia Hgb 9.5 on admission to [facility] and 7.8 on arrival to CCU. Hgb [...] plan with the ICU team and other medical/customer care voice consultant staff. * Tyra De La Torre MD - 06/21/2022 9:15 AM CDT CCU DAILY PROGRESS Patient: Adelia Garvin Jr. Room: [id number] Date: 06/21/2022 Summary Statement: Adelia Garvin Jr. is a 51 y.o. male with a history of CHF (EF 50% 2016), Afib (not on AC), HTN, CAD s/p stent 04/06 and 3 stent 12/07, T1DM (insulin pump at home), ESRD on PD, HLD, GERD, hyperparathyroidism, DDD, OA, gout, BEN on CPAP initially presented to OSH for n/v and chest pain, transferred to [facility] for LHC/PCI, who presented to CCU s/p [...] Chem Recent Labs Lab Units 06/21/22 0834 06/20/22194806/20/22 194 SODIUM mmol/L -- -- 137 POTASSIUM PLASMA [...] not displayed. LFTs Recent Labs Lab Units 06/20/22 194 ALK PHOS Units/L 123 BILIRUBIN TOTAL mg/dL [...] in anterior wall and anterior septem sugegsting CAD/FL in the LAD territory. 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 #Nutrition - continue tube feeds - RHIA eval - remove NGT and restart diet [...] held iso diarrhea; transition to PO pending [facility] - glargine 33U, humalog 6U q4h + SSI - if TF: humalog to 8u q4h - if PO: transition short-acting to humalog 4u post-meal - continue to adjust regimen as patient transitions from TF to oral intake HEME/ONC #Anemia Hgb 9.5 on admission to [facility] and 7.8 on arrival to CCU. Hgb [...] plan with the ICU team and other medical/customer care voice consultant staff. * Jess Redmond, PT - 06/21/2022 7:55 AM CDT Physical Therapy 06/21/22 2917 General PT Missed Visit Reason Bedrest Recommendation/Plan [...] DAILY PROGRESS Patient: Adelia Garvin Jr. Room: [place] [address]/[id number] Date: 06/20/2022 Summary Statement: Adelia Garvin Jr. is a 51 y.o. male with a history of CHF (EF 50% 2016), Afib (not on AC), HTN, CAD s/p stent 04/06 and 3 stent 12/07, T1DM (insulin pump at home), ESRD on PD, HLD, GERD, hyperparathyroidism, DDD, OA, gout, BEN on CPAP initially presented to OSH for n/v and chest pain, transferred to [facility] for LHC/PCI, who presented to CCU s/p [...] gtt - continue amio gtt 0.5 - RHIA eval for possible removal of NGT - [...] norepinephrine, 0-2 mcg/kg/min, Last Rate: Stopped (06/20/22 013) NxStage 4-potassium/2.5-calcium, 1,400 mL/hr, Last Rate: 1,400 [...] Labs Lab Units 06/20/22 0025 06/19/22 2325 06/19/22 2054 WBC K/cumm -- -- 8.4 HEMOGLOBIN g/dL [...] in anterior wall and anterior septem sugegsting CAD/FL in the LAD territory. 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 Hgb [...] A/C was because he started plavix and oil paint shader decided to stop Eliquis. DIAGNOSTIC REVIEW Blood [...] plan with the ICU team and other medical/customer care voice consultant staff. * Bobby Mary MD - [...] 93% I/O last 2 completed shifts: In: 62563.4 [I.V.:1014.4; Other:16467; NG/GT:190; IV Piggyback:420] Out: 37993 [Other:36464] I/O this shift: In: 480.2 [I.V.:480.2] Out: [...] DAILY PROGRESS Patient: Adelia Garvin Jr. Room: [id number] Date: 06/19/2022 Summary Statement: Adelia Garvin Jr. is a 51 y.o. male with a history of CHF (EF 50% 2016), Afib (not on AC), HTN, CAD s/p stent 04/06 and 3 stent 12/07, T1DM (insulin pump at home), ESRD on PD, HLD, GERD, hyperparathyroidism, DDD, OA, gout, BEN on CPAP initially presented to OSH for n/v and chest pain, transferred to [facility] for LHC/PCI, who presented to CCU s/p [...] 06/19/2022 0500 Gross per 24 hour Intake 06611.7 ml Output 17864 ml Net -2782.3 ml Ventilator Settings: 20/500/80/12 [...] in anterior wall and anterior septem sugegsting CAD/FL in the LAD territory. 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 Hgb [...] plan with the ICU team and other medical/customer care voice consultant staff. * Jeffrey Green MD - 06/18/2022 6:17 AM CDT CCU DAILY PROGRESS Patient: Adelia Garvin Room: [id number] Date: 06/18/2022 Summary Statement: Adelia Garvin Jr. is a 51 y.o. male with a history of CHF (EF 50% 2016), Afib (not on AC), HTN, CAD s/p stent 04/06 and 3 stent 12/07, T1DM (insulin pump at home), ESRD on PD, HLD, GERD, hyperparathyroidism, DDD, OA, gout, BEN on CPAP initially presented to OSH for n/v and chest pain, transferred to [facility] for LHC/PCI, who presented to CCU s/p [...] 0-12 mg/hr, Last Rate: 2.5 mg/hr (06/18/22 050) norepinephrine, 0-2 mcg/kg/min (Dosing Weight), Last Rate: 0.0001 mcg/kg/min (06/18/22 05) propofol, 0-50 mcg/kg/min, Last Rate: Stopped (06/15/22 [...] 06/18/2022 0500 Gross per 24 hour Intake 84045.41 ml Output 47978 ml Net 897.41 ml Ventilator Settings: 20/500/80/12 [...] Chem Recent Labs Lab Units 06/18/22 0510 06/17/22224406/17/222116 SODIUM mmol/L -- -- 142 POTASSIUM PLASMA [...] in anterior wall and anterior septem sugegsting CAD/FL in the LAD territory. 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 Hgb [...] plan with the ICU team and other medical/customer care voice consultant staff. * Jeffrey Green MD - 06/17/2022 6:39 AM CDT CCU DAILY PROGRESS Patient: Adelia Garvin Jr. Room: [id number] Date: 06/17/2022 Summary Statement: Adelia Garvin Jr. is a 51 y.o. male with a history of CHF (EF 50% 2016), Afib (not on AC), HTN, CAD s/p stent 04/06 and 3 stent 12/07, T1DM (insulin pump at home), ESRD on PD, HLD, GERD, hyperparathyroidism, DDD, OA, gout, BEN on CPAP initially presented to OSH for n/v and chest pain, transferred to [facility] for LHC/PCI, who presented to CCU s/p [...] 0-1.5 mcg/kg/hr, Last Rate: 0.7 mcg/kg/hr (06/17/22 4531) insulin regular, 0-30 Units/hr, Last Rate: 4.5 Units/hr (06/17/22 4132) And dextrose 5%, 40 mL/hr peritoneal fluid with or without additives for CCPD, peritoneal fluid with or without additives for CCPD, peritoneal fluid with or without additives for CCPD, peritoneal fluid with or without additives for CCPD, fentaNYL, 0-400 mcg/hr, Last Rate: 200 mcg/hr (06/16/22 6933) heparin, 0-33 Units/kg/hr, Last Rate: 10.5 Units/kg/hr [...] in anterior wall and anterior septem sugegsting CAD/FL in the LAD territory. 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 Hgb [...] plan with the ICU team and other medical/customer care voice consultant staff. * Tyra De La Torre MD - 06/16/2022 5:49 AM CDT CCU DAILY PROGRESS Patient: Adelia Garvin Jr. Room: [place] [address]/[id number] Date: 06/16/2022 Summary Statement: Adelia Garvin Jr. is a 51 y.o. male with a history of CHF (EF 50% 2016), Afib (not on AC), HTN, CAD s/p stent 04/06 and 3 stent 12/07, T1DM (insulin pump at home), ESRD on PD, HLD, GERD, hyperparathyroidism, DDD, OA, gout, BEN on CPAP initially presented to OSH for n/v and chest pain, transferred to [facility] for LHC/PCI, who presented to CCU s/p [...] tracheal aspirate cx, blood cultures - continue vanc/kalyah - discontinue asa once extubated / respiratory [...] not displayed. LFTs Recent Labs Lab Units 10/26/22 2051 ALK PHOS Units/L 235* BILIRUBIN TOTAL mg/dL [...] in anterior wall and anterior septem sugegsting CAD/FL in the LAD territory. 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 Hgb [...] plan with the ICU team and other medical/customer care voice consultant staff. * Zoila Sainz - 06/15/2022 4:15 PM CDT 06/15/22 1614 PT Last Visit PT Missed Visit Reason Sedated (pt intubated/sedated) Recommendation/Plan PT Frequency Monitor status PT - Next Appointment 06/17/22 Cosigned by Faby Poole PT at 06/15/2022 4:45 PM CDT * Tyra De La Torre MD - 06/15/2022 5:23 AM CDT CCU DAILY PROGRESS Patient: Adelia Garvin Jr. Room: [id number] Date: 06/15/2022 Summary Statement: Adelia C Newcombe Jr. is a 51 y.o. male with a history of CHF (EF 50% 2016), Afib (not on AC), HTN, CAD s/p stent 04/06 and 3 stent 12/07, T1DM (insulin pump at home), ESRD on PD, HLD, GERD, hyperparathyroidism, DDD, OA, gout, BEN on CPAP initially presented to OSH for n/v and chest pain, transferred to [facility] for LHC/PCI, who presented to CCU s/p [...] 1,400 mL/hr, Last Rate: 1,400 mL/hr (06/14/22 213) NxStage 3-potassium/3-calcium, 1,400 mL/hr, Last Rate: 1,400 [...] Lab Units 06/15/22 0337 06/14/22 2352 06/14/22 194 SODIUM mmol/L -- -- 138 POTASSIUM PLASMA [...] not displayed. LFTs Recent Labs Lab Units 06/14/221940 ALK PHOS Units/L 264* BILIRUBIN TOTAL mg/dL [...] in anterior wall and anterior septem sugegsting CAD/FL in the LAD territory. 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 Hgb [...] plan with the ICU team and other medical/customer care voice consultant staff. * Lavern Morrison MD - 06/14/2022 4:39 PM CDT CCU DAILY PROGRESS Patient: Adelia Garvin Jr. Room: [id number] Date: 06/14/2022 Summary Statement: Adelia Garvin Jr. is a 51 y.o. male with a history of CHF (EF 50% 2016), Afib (not on AC), HTN, CAD s/p stent 04/06 and 3 stent 12/07, T1DM (insulin pump at home), ESRD on PD, HLD, GERD, hyperparathyroidism, DDD, OA, gout, BEN on CPAP initially presented to OSH for n/v and chest pain, transferred to [facility] for LHC/PCI, who presented to CCU s/p [...] in anterior wall and anterior septem sugegsting CAD/FL in the LAD territory. 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 Hgb [...] plan with the ICU team and other medical/customer care voice consultant staff. * Payam Johnson, CREDENTIALS SPECIALIST - 06/14/2022 11:56 AM CDT 06/14/22 1135 [...] DAILY PROGRESS Patient: Adelia Garvin Jr. Room: [id number] Date: 06/13/2022 Summary Statement: Adelia Garvin Jr. is a 51 y.o. male with a history of CHF (EF 50% 2016), Afib (not on AC), HTN, CAD s/p stent 04/06 and 3 stent 12/07, T1DM (insulin pump at home), ESRD on PD, HLD, GERD, hyperparathyroidism, DDD, OA, gout, BEN on CPAP initially presented to OSH for n/v and chest pain, transferred to [facility] for LHC/PCI, who presented to CCU s/p [...] (06/13/22 1318) propofol, 0-50 mcg/kg/min, Last Rate: 40 mcg/kg/min [...] 3-12 mL/hr, Last Rate: 3 mL/hr (06/13/22 170) PRN Meds:. acetaminophen albuterol HFA bisacodyL bisacodyl [...] in anterior wall and anterior septem sugegsting CAD/FL in the LAD territory. 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 Hgb [...] plan with the ICU team and other medical/customer care voice consultant staff. * Olga Bernstein, PT - 06/13/2022 9:14 AM CDT Physical Therapy 06/13/22 0913 General PT Missed Visit Reason Bedrest;Sedated (impella, CVVHD) Recommendation/Plan PT Frequency Monitor status PT - Next Appointment 06/15/22 * Jeffrey Green MD - 06/12/2022 4:58 AM CDT CCU DAILY PROGRESS Patient: Adelia Garvin Jr. Room: [place] [address]/[id number] Date: 06/12/2022 Summary Statement: Adelia Garvin Jr. is a 51 y.o. male with a history of CHF (EF 50% 2016), Afib (not on AC), HTN, CAD s/p stent 04/06 and 3 stent 12/07, T1DM (insulin pump at home), ESRD on PD, HLD, GERD, hyperparathyroidism, DDD, OA, gout, BEN on CPAP initially presented to OSH for n/v and chest pain, transferred to [facility] for LHC/PCI, who presented to CCU s/p [...] (Dosing Weight), Last Rate: Stopped (06/11/22399) NxStage 4-potassium/2.5-calcium, 1,400 mL/hr, Last Rate: 1,400 [...] in anterior wall and anterior septem sugegsting CAD/FL in the LAD territory. 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 Hgb [...] plan with the ICU team and other medical/customer care voice consultant staff. * Jeffrey Green MD - 06/11/2022 2:46 AM CDT CCU DAILY PROGRESS Patient: Adelia Garvin Jr. Room: [id number] Date: 06/11/2022 Summary Statement: Adelia Garvin Jr. is a 51 y.o. male with a history of CHF (EF 50% 2016), Afib (not on AC), HTN, CAD s/p stent 04/06 and 3 stent 12/07, T1DM (insulin pump at home), ESRD on PD, HLD, GERD, hyperparathyroidism, DDD, OA, gout, BEN on CPAP initially presented to OSH for n/v and chest pain, transferred to [facility] for LHC/PCI, who presented to CCU s/p complex PCI with impella and intubated. SUBJECTIVE Overnight: - Impella removed -[place] removed -Veletri weaned off -Tube feeds started [...] DATA CBC Recent Labs Lab Units 06/10/22 2227 WBC K/cumm 17.2* HEMOGLOBIN g/dL 9.0* HEMATOCRIT % 27.0* PLATELETS K/cumm 274 NEUTROS PCT % 75.6 LYMPHS PCT % 7.6 MONOS PCT % 8.5 EOS PCT % 4.2 Chem Recent Labs Lab Units 06/11/22 0049 06/10/22 2228 06/10/22 2227 SODIUM mmol/L -- -- 136 POTASSIUM PLASMA [...] in anterior wall and anterior septem sugegsting CAD/FL in the LAD territory. 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 Hgb [...] plan with the ICU team and other medical/customer care voice consultant staff. * Tyra De La Torre MD - 06/10/2022 12:46 PM CDT CCU DAILY PROGRESS Patient: Adelia Garvin Jr. Room: [facility] CARDIAC CATH ROOM/NO* Date: 06/10/2022 Summary Statement: [...] for n/v and chest pain, transferred to [facility] for LHC/PCI, who presented to CCU s/p [...] mL/hr, Last Rate: 1,400 mL/hr (06/10/22 09) NxStage 4-potassium/2.5-calcium, 1,400 mL/hr, Last Rate: 1,400 [...] propionate [Oct] glucagon Dialysis Access Care AND [MAR Hold] heparin [MAR Hold] heparin OR [OCT Hold] heparin [OCT Hold] lidocaine [OCT Hold] ondansetron ODT OR [OCT Hold] ondansetron [OCT Hold] phenoL [OCT Hold] polyethylene glycol [OCT Hold] ramelteon [OCT Hold] sodium chloride 0.9% OBJECTIVE Vitals: Vitals: 06/10/22 [...] Units/L 117* Coags Recent Labs Lab Units 06/09/22203222 1834 06/05/22 1554 APTT sec 92* < [...] TIBC mcg/dL 130* Recent Labs Lab Units 06/07/22 2000 FERRITIN ng/mL 2,062* Cholesterol Recent Labs Lab [...] in anterior wall and anterior septem sugegsting CAD/FL in the LAD territory. 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 Hgb [...] plan with the ICU team and other medical/customer care voice consultant staff. * Lavern Morrison MD - 06/09/2022 6:31 AM CDT CCU DAILY PROGRESS Patient: Adelia Garvin Jr. Room: [id number] Date: 06/09/2022 Summary Statement: Adelia Garvin Jr. is a 51 y.o. male with a history of CHF (EF 50% 2017), Afib (not on AC), HTN, CAD s/p stent 04/06 and 3 stent 12/07, T1DM (insulin pump at home), ESRD on PD, HLD, GERD, hyperparathyroidism, DDD, OA, gout, BEN on CPAP initially presented to OSH for n/v and chest pain, transferred to [facility] for LHC/PCI, who presented to CCU s/p [...] 1,400 mL/hr, Last Rate: 1,400 mL/hr (06/09/22 035) NxStage 4-potassium/2.5-calcium, 1,400 mL/hr, Last Rate: 1,400 mL/hr (06/09/22 035) propofol, 0-50 mcg/kg/min, Last Rate: 40 mcg/kg/min [...] -- 1.0 Chem Recent Labs Lab Units 06/09/226 06/08/225 06/08/222007 SODIUM mmol/L -- -- 136 POTASSIUM [...] in anterior wall and anterior septem sugegsting CAD/FL in the LAD territory. 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 Hgb [...] MD Resident Physician, Internal Medicine Cosigned by Unc Health PardeeEric MD at 06/09/2022 1:13 PM CDT Associated [...] plan with the ICU team and other medical/customer care voice consultant staff. * Roberto Carlos Newberry PT - 06/08/2022 3:00 PM CDT Physical Therapy 06/08/22 1500 General PT Missed Visit Reason Sedated;Other (comment) (pt intubated, sedated, primaflex CVVHD.) * Marcelina Pickard NP - 06/08/2022 7:58 AM CDT PROCEDURE: [facility] w/ complex PCI and Impella CP placement [...] statin therapy. Follow up appt with primary oil paint shader, Dr Petit in 2-4 weeks post discharge. LOIDA Dos Santos Interventional Cardiology Nurse Practitioner [phone] Please refer to [facility] Blood [...] DAILY PROGRESS Patient: Adelia Garvin Jr. Room: [id number] Date: 06/08/2022 Summary Statement: Adelia Garvin Jr. is a 51 y.o. male with a history of CHF (EF 50% 2016), Afib (not on AC), HTN, CAD s/p stent 04/06 and 3 stent 12/07, T1DM (insulin pump at home), ESRD on PD, HLD, GERD, hyperparathyroidism, DDD, OA, gout, BEN on CPAP initially presented to OSH for n/v and chest pain, transferred to [facility] for LHC/PCI, who presented to CCU s/p [...] mL/hr (06/08/22 050) sodium chloride 0.9%, 10 mL/hr sodium chloride [...] 06/08/2022 0500 Gross per 24 hour Intake 40524.23 ml Output 96867 ml Net -328.77 ml Ventilator Settings: 20/500/80/12 [...] 0937 Urine Analysis Recent Labs Lab Units 06/05/22 2047 COLOR U Yellow CLARITY U Cloudy* SPEC [...] gout, BEN on CPAP initially presented to [facility] for n/v and chest pain, transferred to [facility] for LHC/PCI, who presented to the CCU [...] Pt became acutely hypoxic 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 Hgb [...] plan with the ICU team and other medical/customer care voice consultant staff. * Jess Redmond, PT - 06/07/2022 11:48 AM CDT Physical Therapy 06/07/22 1148 General PT Missed Visit Reason Procedure/testing/appointment (Medical Records Assistant) * Conrad Akers MD - 06/07/2022 9:32 AM CDT MICU Attending Daily Note Name: Adelia Garvin Jr. Bed: [id number] : 1970 Age: 51 y.o. male Admit: [...] pre-medications for contrast allergy in anticipation of [facility] today. Scheduled Meds:amLODIPine, 10 mg, oral, Daily [...] 06/07/2022 0800 Gross per 24 hour Intake 89619.7 ml Output 74512 ml Net -1579.3 ml 24hr Min/Max: Temp [...] performed whenever feasible but would not delay LHC For this Continue meropenem for gram negative [...] plan with the ICU team and other medical/customer care voice consultant staff. Conard Akers MD Pulmonary/Critical Care * Girish Kirk MD - 06/07/2022 7:56 AM CDT [facility] Acute and Critical Care Surgery (ACCS) Consult [...] 81 mg, 81 mg, oral, Daily, Dewey aPrra MD, 81 mg at 06/06/22 0820 atorvastatin (LIPITOR) tablet 80 mg, 80 mg, oral, Daily, Dewey Parra MD, 80 mg at 06/06/22 0820 calcitRIOL (ROCALTROL) capsule 0.25 mcg, 0.25 mcg, oral, Daily, Dewey Parra MD, 0.25 mcg at 06/06/22 0820 calcium acetate(phosphat bind) (PHOSLO) capsule 667 mg, [...] Units, 500,000 Units, swish & spit, QID, Francisco Cardosoah Bin, MD, 500,000 Units at 06/06/222018 ondansetron ODT [...] tablet 50 mg, 50 mg, oral, Q6H, Dblouiek, Veronica Gee MD, 50 mg at ramelteon [...] Is&Os: I/O last 2 completed shifts: In: 46743.3 [P.O.:780; I.V.:444.3; Other:73952; IV Piggyback:100] Out: 99902 [Other:05869] No intake/output data recorded. Physical Exam: BP [...] evaluation. The pelvis is excluded from the [id number] and unavailable for interpretation. A rounded density [...] Type 2 diabetes mellitus treated with insulin (CMS/[facility]) ([facility]) Chronic kidney disease, stage III (moderate) ([facility]) Benign essential hypertension Hyperlipidemia 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[place] artery of [place] heart with stable angina pectoris (CMS/HCC) ([facility]) History of coronary artery stent placement Hypertension Diabetes mellitus ([facility]) Snoring Hypersomnia Chronic kidney disease Pain of finger Macular ischemia Combined forms of age-related cataract Proliferative diabetic retinopathy associated with type 2 diabetes mellitus (CMS/HCC) ([facility]) Abnormal cardiovascular stress test Angina pectoris ([facility]) Adelia Garvin Jr. is a C/F CHOLECYSTITIS 51M w/PMHB CHF (EF 50% 2016), Afib (not on AC), HTN, CAD s/p stent 04/06 and 3 stent 12/07, T1DM (insulin pump at home), ESRD on PD, HLD, GERD, hyperparathyroidism, DDD, OA, gout, BEN on CPAP [facility] for generalized weakness, n/v, diarrhea, and chest pain, transferredto [facility] on 06/05 for LHC/PCI scheduled for 06/06. Pt was found to have an NSTEMI at OSH and was continued on hep gtt, asa81, plavix at [facility]. He was transferred to MICU after he [...] GB pathology - Serial abdominal exams - [facility] will continue to follow The care plan above has been or will be discussed with attending physician. Any changes will be communicated to the primary team. Please contact the [facility] Inpatient Consult Service at the number listed below with any questions or concerns regarding the surgical management of this patient. Girish Kirk MD Resident Physician General Surgery [facility] ED Consult [facility] Inpatient Consult [facility] Outpatient Clinic - option 1 Cosigned by Modesta Gamez MD at 06/07/2022 9:33 PM CDT Associated attestation - Modesta Gamez MD - 06/07/2022 9:33 PM CDT I agree with the findings and plan of care as documented in the resident's/fellow's note. 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 Later chart [...] MD Instructor, Acute and Critical Care Surgery [facility] [employer] * Amira Davenport RN - 06/06/2022 12:04 PM CDT CM Initial Assessment Interview Note Information Obtained From: Patient (06/06/22 1156) Admission Source: from [facility] Impression: Hx - CHF, Afib, HTN, CAD [...] (name, phone, availablity): Brother Jude Gallardo - [phone] Home Care Services: No Durable Medical Equipment: [...] Collaboration with patient, MD, direct care nurse, Mixer Blender, and other members of the health care team to assure needed interventions completed. 2. Return patient to optimal level of self-care post discharge. 3. Field Technical Specialist will follow for Discharge Planning - interventions [...] Daily Note Name: Adelia Garvin Jr. Bed: [id number] : 1970 Age: 51 y.o. male Admit: [...] 06/06/2022 0900 Gross per 24 hour Intake 05572.47 ml Output 39672 ml Net -2112.53 ml 24hr Min/Max: Temp [...] EKG/Min 73 BPM Atrial Rate 73 BPM MT-Interval (MSEC) 184 ms QRS-Interval (MSEC) 106 ms QT-Interval (MSEC) 442 ms QTc 486 ms P [place] 49 degrees R [place] -33 degrees T [place] 87 degrees Diagnosis Normal sinus rhythm Possible [...] Magnesium 2.1 1.4 - 2.5 mg/dL POCT BQ-S-RVB-GLU-HCT, WB - ISTAT Collection Time: 06/05/22 3:22 [...] findings include: Troponin peak at 4800 NT-proBNP 66713 CXR with bilateral fluffy opacities RUQ US [...] control Wean O2 as tolerated, currently on MS Hypertensive urgency/emergency With associated flash pulmonary edema [...] plan with the ICU team and other medical/customer care voice consultant staff. Conrad Akers MD Pulmonary/Critical Care [...] REMOVE PERC ARTERIAL VAD (IMPELLA), DIFFERENT SESSION [id number] Cosigned by Champ Osborne MD PhD at 06/10/2022 10:55 AM CDT Source Note - Jeffrey Green MD - 06/07/2022 2:03 PM CDT . CCU ADMISSION HISTORY AND PHYSICAL Patient: Adelia Garvni Jr. Room: [facility] CARDIAC CATH ROOM/NO* Date: 06/07/2022 SUBJECTIVE CCU INDICATION: Cardiogenic shock HISTORY OF PRESENT ILLNESS Adelia Garvin Jr. is a 51 y.o. male with a history of CHF (EF 50% 2016), Afib (not on AC), HTN, CAD s/p stent 04/06 and 3 stent 12/07, T1DM (insulin pump at home), ESRD on PD, HLD, GERD, hyperparathyroidism, DDD, OA, gout, BEN on CPAP initially presented to [facility] for n/v and chest pain, transferred to [facility] for LHC/PCI, now presenting to CCU s/p complex PCI with impella and intubated. At the OSH he presented with 3d generalized weakness, chills, ROONEY, n/v, chest pain relieved by sublingual ntg. His labs were notable for trop 1.0-->1.09-->0.729, BNP 72085. He had a CT CAP showing cholelithiasis [...] circumflex as optimal treatment, prompting transfer to [facility]. He arrived at [facility] 06/05. EKG showed sinus bradycardia, 1st deg [...] Diabetes mellitus type I (HCC) Dialysis patient ([facility]) ([facility]) ESRD on dialysis ([facility]) ([facility]) GERD (gastroesophageal reflux disease) Hyperlipidemia [...] oral, Daily aspirin, 162 mg, oral, Once [OCT Hold] aspirin, 81 mg, oral, Daily [OCT Hold] [...] Hold] insulin lispro, 0.04 Units/kg, subcutaneous, TID [Oct] insulin lispro, 9 Units, subcutaneous, TID with [...] 06/07/2022 1100 Gross per 24 hour Intake 00250.04 ml Output 34889 ml Net -1701.96 ml REVIEW OF LABORATORY [...] gout, BEN on CPAP initially presented to [facility] for n/v and chest pain, transferred to [facility] for LHC/PCI, now presenting to CCU s/p [...] Pt became acutely hypoxic while 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 is a 51 y.o. male with a history of CHF (EF 50% 2017), Afib (not on AC), HTN, CAD s/p stent 04/06 and 3 stent 12/07, T1DM (insulin pump at home), ESRD on PD, HLD, GERD, hyperparathyroidism, DDD, OA, gout, BEN on CPAP initially presented to [facility] for n/v and chest pain, transferred to [facility] for LHC/PCI, now presenting to CCU s/p complex PCI with impella and intubated. At the OSH he presented with 3d generalized weakness, chills, ROONEY, n/v, chest pain relieved by sublingual ntg. His labs were notable for trop 1.0-->1.09-->0.729, BNP 77649. He had a CT CAP showing cholelithiasis [...] circumflex as optimal treatment, prompting transfer to [facility]. He arrived at [facility] 06/05. EKG showed sinus bradycardia, 1st deg [...] Diabetes mellitus type I (HCC) Dialysis patient ([facility]) (HCC) ESRD on dialysis ([facility]) ([facility]) GERD (gastroesophageal reflux disease) Hyperlipidemia [...] QID [Oct] cloNIDine, 0.1 mg, oral, BID [Oct] clopidogreL, 75 mg, oral, Daily [Oct] docusate sodium, 100 mg, oral, Daily [Oct] ergocalciferol, 50,000 Units, oral, Weekly [OCT Hold] ezetimibe, 10 mg, oral, Daily [OCT Hold] [...] injection PRN 1,000 Units at 06/07/22 1319 [MAR Hold] lidocaine (LIDODERM) 5 % patch 1 [...] 06/07/2022 1100 Gross per 24 hour Intake 82063.04 ml Output 65360 ml Net -1701.96 ml REVIEW OF LABORATORY [...] gout, BEN on CPAP initially presented to [facility] for n/v and chest pain, transferred to [facility] for LHC/PCI, now presenting to CCU s/p [...] Pt became acutely hypoxic 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 [place]-L[place] catheter reviewed that shows adequate cardiac output [...] plan with the ICU team and other medical/customer care voice consultant staff. * Marcelina Pickard NP - 06/07/2022 10:26 AM CDT I have reviewed the H&P, examined the patient, and endorse the findings as written. Plan of Care : Based on the above findings, I consider Adelia Garvin Jr. to be an acceptable risk for : Procedure(s): PCI MARIELLA MAJOR CORONARY C9600 - [id number] Cosigned by Champ Osborne MD PhD at [...] gout, BEN on CPAP initially presented to [facility] for generalized weakness, n/v, diarrhea, and chest pain, transferred to [facility] for LHC/PCI scheduled for 06/06, and presenting to the MICU after he was placed on NIPPV during an ACT for hypoxic respiratory failure. At OSH, pt presented w 3d of generalized weakness, loss of appetite, chills, ROONEY, n/v/d, and intermittent chest pain relieved by sublingual ntg. Labs at OSH notable for WBC 6.1, hgb 10.2, plt 206, trop I 1.0->1.09->0.729, BNP 62441. CTAP cholelithiasis w mild gallbladder distension, airspace [...] doneat tertiary center. Pt was transferred to [facility] floor overnight. Labs notable for Na 129, [...] (coronary artery disease) Chest pain Diabetes mellitus ([facility]) Diabetes mellitus type I ([facility]) Dialysis patient ([facility]) ESRD on dialysis ([facility]) GERD (gastroesophageal reflux disease) Hyperlipidemia [...] 0659 06/05/22 0700 - 06/06/22 0659 Shift 4062-6305 1176-7674 24 Hour Total 7320-1739 0148-7763 24 Hour Total INTAKE P.O. 60 60 Other 28326 90663 Shift Total(mL/kg) 71811(83.5) 64048(83.5) OUTPUT Urine 0 0 Other 46520 19427 Stool 0 0 Shift Total(mL/kg) 95191(87.7) 26737(87.7) NET -603 -603 Weight (kg) 142 142 [...] Magnesium 2.1 1.4 - 2.5 mg/dL POCT HN-G-MXU-GLU-HCT, WB - ISTAT Collection Time: 06/05/22 3:22 [...] to OSH with NSTEMI, CAP, transferred to [facility] for LHC/PCI scheduled for 06/06, andpresenting to [...] gout, BEN on CPAP initially presented to [facility] for generalized weakness, n/v, diarrhea, and chest pain, transferred to [facility] for LHC/PCI scheduled for 06/06, and presenting to the MICU after he was placed on NIPPV during an ACT for hypoxic respiratory failure. At OSH, pt presented w 3d of generalized weakness, loss of appetite, chills, ROONEY, n/v/d, and intermittent chest pain relieved by sublingual ntg. Labs at OSH notable for WBC 6.1, hgb 10.2, plt 206, trop I 1.0->1.09->0.729, BNP 00620. CTAP cholelithiasis w mild gallbladder distension, airspace [...] doneat tertiary center. Pt was transferred to [facility] floor overnight. Labs notable for Na 129, [...] (coronary artery disease) Chest pain Diabetes mellitus ([facility]) Diabetes mellitus type I ([facility] Dialysis patient ([facility]) ESRD on dialysis ([facility]) GERD (gastroesophageal reflux disease) Hyperlipidemia [...] 0659 06/05/22 0700 - 06/06/22 0659 Shift 9273-5594 4935-4379 24 Hour Total 7461-3586 2240-6925 24 Hour Total INTAKE P.O. 60 60 Other 13785 74455 Shift Total(mL/kg) 22356(83.5) 87398(83.5) OUTPUT Urine 0 0 Other 52377 70147 Stool 0 0 Shift Total(mL/kg) 80518(87.7) 43996(87.7) NET -603 -603 Weight (kg) 142 142 [...] Magnesium 2.1 1.4 - 2.5 mg/dL POCT ZL-W-HUE-GLU-HCT, WB - ISTAT Collection Time: 06/05/22 3:22 [...] to OSH with NSTEMI, CAP, transferred to [facility] for LHC/PCI scheduled for 06/06, andpresenting to [...] plan with the ICU team and other medical/customer care voice consultant staff. * Russ Milner MD - [...] gout, BEN on CPAP initially presented to [facility] for generalized weakness, n/v, diarrhea, and chest pain now being transferred for LHC/PCI 06/06. Patient initially presented with generalized weakness for the last 3 days. He then began to endorsen/v and diarrhea as well as chest pain which waxes and wanes and improves with sublingual ntg. He also reported decreased appetite, chills, dyspnea with exertion, and nonproductive cough. Patient follows with [facility] for cardiology. He did have angiogram in 2020 which showed patent stents in RCA and PDA, previously jailed posterolateral occluded and 50% stenosis in branch of OM1. Initial labs on 06/02 significant for Na 136, K 3, Cr 5.90, WBC 6.1, Hgb 10.2, Plt 206, tbili 1.3, AST 29, ALT 33, Alk Phos 105, Lipase 65, troponin I 1.0->1.09->0.729, BNP 15555. Covid, influenza negative. CXR showed left basilar [...] (coronary artery disease), Chest pain, Diabetes mellitus ([facility]), Diabetes mellitus type I ([facility]), Dialysis patient ([facility]), ESRD on dialysis ([facility]),GERD (gastroesophageal reflux disease), Hyperlipidemia, Hypertension, Sleep apnea, [...] gout, BEN on CPAP initially presented to [facility] for generalized weakness, n/v, diarrhea, andchest pain now being transferred for LHC/PCI 06/06. #CHF #CAD s/p PCI 03/2017 (RCA) and 3 stent 12/07 (prox, mid, and distal RCA) OSH txf for LHC/PCI w Dr. Osborne 06/06 at 10:30am. [facility]. He did have angiogram in 2020 which showed patent stents in RCA and PDA, previouslyjailed posterolateral occluded and 50% stenosis in branch of OM1. Endorsing chest pain iso n/v/diarrhea/ROONEY. Elevated troponin I 1.0->1.09->0.729, BNP 37123. EKG with sinus rhythm with left anterior [...] pain, no changes in EKG->restarted heparin gtt -LHC 06/06 at 10:30am (NPO MN) -heparin gtt [...] white count, elevated troponin I 1.0->1.09->0.729, BNP 67609, lipase 65. Covid, influenza negative. CXR showed [...] 24h UF 1074 ml Won Navarro MD environmental compliance officer Division of Nephrology NEPHROLOGY PROCEDURE NOTE Date [...] 116.1 kg (255 lb 15.3 oz) Height: CREDENTIALS SPECIALIST vascular access: PD catheter Other findings: Date 06/25/22699 - 06/26/22 0659 06/26/22 07 - 06/27/22 0659 Shift 3426-3499 4434-2255 24 Hour Total 1927-8604 4933-9571 24 Hour Total INTAKE P.O. 360 360 Other 19741 03528 Shift Total(mL/kg) 360(3) 42901(105.7) 46962(108.8) OUTPUT Urine(mL/kg/hr) 100(0.1) 100(0) 300 300 Other 88267 95140 Shift Total(mL/kg) 100(0.8) 76140(119) 85529(119.9) 300(2.6) 300(2.6) NET 673 -7719 -1809 -300 -300 Weight (kg) 119.7 116.1 116.1 [...] FERRITIN 2,062 (H) 06/07/2022 Won Navarro MD environmental compliance officer Nephrology Division ALING PROJECT ENGINEER * Aleida Lambert, RHIA - 06/21/2022 2:02 PM CDTAssociated Order(s): RHIA EVALUATE AND TREAT VIDEOFLUOROSCOPIC SWALLOW STUDY Speech-Language [...] reported General Information Adelia Garvin Jr. 06/21/22 RHIA Received On: 06/21/22 General Observations: presents alert, [...] Administered: Thin liquids (via spoon & straw), [place] thickened liquids (via spoon & straw), Purees, Honey thickened liquids via spoon, Solids. Patient took large sips requiring more than 1 swallow even when cued for small sip. Administered consistencies contain barium product. Thin Liquids: Laryngeal Penetration: Present Aspiration Present: No Penetration Aspiration Scale-Thin: 4-Material enters the airway, contacts the vocal folds and is ejected from the airway [place] Thickened Liquids: Laryngeal Penetration: Present Aspiration Present: No Penetration Aspiration Scale-[place]: 2-Material enters the airway, remains above the [...] treatment goals and details, if indicated. Plan RHIA Frequency of Services: 2-3x/wk RHIA Recommendation (Add'l Services): Inpatient Rehab Facility Next [...] National Outcomes Measurement System: (pending MBS) Plan RHIA Frequency of Services: Pending instrumental assessment Further [...] Poe MD Authorized by: Aj Poe MD [place] Protocol: RN Notified of Procedure: yes Informed consent: Patient/franchise sales representative/guardian agrees and accepts and risks, benefits, [...] Brody, the patient's brother. Aj Poe MD Experimental Plastics Fabricator, PGY-5 Cosigned by Rufino Flores MD at 06/20/2022 9:33 AM CDT * Lavern Morrison MD - 06/07/2022 10:17 PM CDTAssociated Order(s): Arterial Line Insertion Post-Procedure Diagnose(s): Hypotension, unspecified hypotension type Arterial Line Insertion Date/Time: 06/07/2022 10:17 PM Performed by: Lavern Morrison MD Authorized by: Lavern Morrison MD [place] Protocol: RN Notified of Procedure: yes Informed [...] and matched to patient identification: n/a Responsible green party for transporting specimen(s) to lab determined: n/a [...] for n/v and chest pain, transferred to [facility] for LHC/PCI, who presented to CCU s/p complex PCI with impella and intubated. Now extubated, tolerating PO intake, on home PD. Arrived at [facility] from OSH on 06/05. EKG showed sinus [...] Diabetes mellitus type I (HCC), Dialysis patient ([facility]/HCC) (HCC), ESRD on dialysis ([facility]/HCC) (HCC), GERD (gastroesophageal reflux disease), Hyperlipidemia, Hypertension, [...] 06/23/2022 1747 Gross per 24 hour Intake 84429 ml Output 87169 ml Net -2325 ml Physical Exam: General: [...] ESRD on PD who was transferred to [facility] for an impella-supported complex PCI on 06/07/22 [...] 5PM or on weekends, please page the java scala developer fabrication lead with any questions or concerns. Will Villavicencio MD Experimental Plastics Fabricator 5:59 PM 06/23/22 Cosigned by Musa Fernando MD at 06/23/2022 7:53 PM CDT Associated attestation - Musa Fernando MD - 06/23/2022 7:53 PM CDT 06/23/2022 I have personally seen and examined this pt with resident/Fellow/SECURITY OPERATIONS CENTER ANALYST . I have reviewed History/Physical exam and plan for management. I agree with it . Musa Fernando M.D., F.A.C.C. mural painter [facility] [employer] [facility]. [place] This note contains information and [...] about verbage above please contact me at [phone]. . * Mckenzie Phelan, GAVIN - 06/15/2022 [...] gout, BEN on CPAP initially presented to [facility] for generalized weakness, n/v, diarrhea, and chest pain now being transferred for LHC/PCI 06/06. Objective Past Medical History: Diagnosis Date CAD (coronary artery disease) Chest pain Diabetes mellitus (HCC) Diabetes mellitus type I (HCC) Dialysis patient ([facility]/HCC) (HCC) ESRD on dialysis ([facility]) (HCC) GERD (gastroesophageal reflux disease) [...] of Weight Used for Estimated Protein : [place] Protein Needs Based on g/k.7 Total Protein [...] Evaluation: TF tolerance Mckenzie Phelan RDN LD [phone] * Sandrine Myers MD - 06/15/2022 10:42 [...] Pulmonary will continue to follow. Please call fabrication lead pulmonary consult fellow with additional questions or [...] gout, BEN on CPAP initially presented to [facility] for generalized weakness, n/v, diarrhea, and chest pain now being transferred for LHC/PCI 06/06. Objective Past Medical History: Diagnosis Date CAD (coronary artery disease) Chest pain Diabetes mellitus (HCC) Diabetes mellitus type I (HCC) Dialysis patient ([facility]) (HCC) ESRD on dialysis ([facility]) (HCC) GERD (gastroesophageal reflux disease) [...] of Weight Used for Estimated Protein : [place] Protein Needs Based on g/k.5 Total Protein [...] Monitoring and Evaluation: TF tolerance ADAMA Tejada Treating Inspector RD number [phone] * Ronny Vasquez - 06/10/2022 2:21 PM [...] gout, BEN on CPAP initially presented to [facility] for generalized weakness, n/v, diarrhea, and chest pain now being transferred for LHC/PCI 06/06. Objective Past Medical History: Diagnosis Date CAD (coronary artery disease) Chest pain Diabetes mellitus (HCC) Diabetes mellitus type I (HCC) Dialysis patient ([facility]) (HCC) ESRD on dialysis ([facility]) (HCC) GERD (gastroesophageal reflux disease) [...] Monitoring and Evaluation: TF tolerance Ronny Vasquez MS, RDN LD Treating Inspector RD number [phone] * Patricio Pearce MD - 06/09/2022 1:10 [...] failure. Briefly, the patient was transferred to [facility] for complex PCI for NSTEMI on 06/04. He was initially on the medicine floor then went into flash pulmonary edema in setting of hypertension and NSTEMI and was transferred to the MICU for NPPV. CXR showed significant pulmonary edema. Labs notable for BNP 12166, trops 4000. He was also found to have cholecystitis; deemed too high risk for procedures by teresa gical service, managed with antibiotics (meropenem). On 06/07 he went for LHC and PCI was performed to L dominant [...] dilated RV with normal RV systolic function. [place] numbers from earlier today indicat PA 36/17, [...] Diabetes mellitus type I (HCC) Dialysis patient (CMS/[facility]) (HCC) ESRD on dialysis ([facility]) (HCC) GERD (gastroesophageal reflux disease) [...] CDTAssociated Order(s): IP CONSULT TO GENERAL SURGERY [facility] Acute Care Surgery Consult Note Requesting Consult: Conrad Akers MD Reason for Consult: cholecystitis Assessment: 51M w/PMHB CHF (EF 50% 2016), Afib (not on AC), HTN, CAD s/p stent 04/06 and 3 stent 12/07, T1DM (insulin pump at home), ESRD on PD, HLD, GERD, hyperparathyroidism, DDD, OA, gout, BEN on CPAP [facility], n/v, diarrhea, and chest pain, transferredto [facility] on 06/05 for LHC/PCI scheduled for 06/06. Pt was found to have an NSTEMI at OSH and was continued on hep gtt, asa81, plavix at [facility]. He was transferred to MICU after he [...] discussed with attending Dr. Gamez. Please contact [facility] Inpatient Consults at with any questions or [...] OA, gout, BEN on CPAP [facility] generalized weakness, n/v, diarrhea, and chest pain, transferredto [facility] on 06/05 for LHC/PCI scheduled for 06/06. Pt was found to have an NSTEMI at OSH and was continued on hep gtt, asa81, plavix at [facility]. He was transferred to MICU after he [...] (coronary artery disease) Chest pain Diabetes mellitus ([facility]/HCC) Diabetes mellitus type I ([facility]/HCC) Dialysis patient ([facility]) ESRD on dialysis ([facility]) GERD (gastroesophageal reflux disease) Hyperlipidemia [...] evaluation. The pelvis is excluded from the [id number] and unavailable for interpretation. A rounded density [...] only and have not been reviewed by [facility] Radiology. There will be no report generated by a [facility] Radiologist. XR Outside Reference Result Date: 06/05/2022 These images are for Reference purposes only and have not been reviewed by [facility] Radiology. There will be no report generated by a [facility] Radiologist. US RUQ Result Date: 06/06/2022 Sonographic [...] only and have not been reviewed by [facility] Radiology. There will be no report generated by a [facility] Radiologist. IR Outside Reference Result Date: 06/05/2022 These images are for Reference purposes only and have not been reviewed by [facility] Radiology. There will be no report generated by a [facility] Radiologist. Assessment/Plan: Please see top of note. Cosigned by Modesta Gamez MD at 06/07/2022 9:34 PM CDT Associated attestation - Modesta Gamez MD - 06/07/2022 9:34 PM CDT I have seen and examined the patient on 06/06/2022. I agree with the findings and plan of care as documented in the resident's/fellow's note. Nona Gamez MD Instructor, Acute and Critical Care Surgery [facility] [employer] ' * Hortencia Slade MD - 06/05/2022 2:37 PM CDTAssociated Order(s): CONSULT TO ENDOCRINOLOGY DIABETES Endocrinology & Diabetes Consult Note Patient: Adelia Garvin Jr., 51 y.o. male (: 1970) Room: [place] [address] ( ) LOS: 1 Consult Question: T1DM [...] (coronary artery disease), Chest pain, Diabetes mellitus ([facility]), Diabetes mellitus type I ([facility] Dialysis patient ([facility]), ESRD on dialysis ([facility]), GERD (gastroesophageal reflux disease), Hyperlipidemia, [...] is 44.91 kg/m??. I/O this shift: In: 13220 [P.O.:60; Other:80199] Out: 19813 [Other:27435] Physical Exam Gen : no acute distress, [...] labs, imaging, and diagnostics independently reviewed in [facility] and commented on below. Lab Results Component Value Date TSH 0.80 03/21/2017 Lab Results Component Value Date CHOL 149 06/04/2022 TRIG 165 (H) 06/04/2022 HDL 34 (L) 06/04/2022 LDLCALC 82 06/04/2022 Lab Results Component Value Date 25HYDROVITD 22.7 (L) 03/22/2017 Lab Results Component Value Date HGBA1C 7.4 (H) 03/21/2017 Assessment & Plan 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, complicated by ESRD on [...] ## Discharge Planning - Follow-up with home deblocker Discussed with Dr. Huynh and primary team [...] Date: 2019 Dialysis Days: nightly Dialysis Center: [place], [place] Dialysis Medicine: Dialysis Prescription: CCPD - 4 exchanges of 2.8 L each, total time 9 hours, total volume : 11.2 L.All 2.5 % bags and then a manual day time exchange with 1 L purple bag. Past Medical History: Diagnosis Date CAD (coronary artery disease) Chest pain Diabetes mellitus (CMS/HCC) Diabetes mellitus type I (CMS/HCC) Dialysis patient (CMS/HCC) ESRD on dialysis (CMS/HCC) GERD (gastroesophageal reflux disease) Hyperlipidemia Hypertension Sleep [...] No rash or lesions on visible skin OUTSOLE SKIVER: Alert Ox3. No focal motor deficits, no [...] cell count and diff. Vonnie Cody MD environmental compliance officer documented in this encounter Nursing Notes * Tequial Ingram RN - 06/28/2022 8:08 PM CST 9 hour CCPD treatment started as ordered. PD catheter site is clear and free of drainage. PD site was cleansed and gentamicin cream applied at entrance. Covered with gauze dressing. Treatment setup aseptically per protocol. ALING PROJECT ENGINEER * Pj Duckworth RN - 06/28/2022 6:15 AM CST 06/28/22 0600 Vitals BP 124/62 Temp 36.7 ??C (98.1 ??F) Temp src Oral Pulse 70 Resp 16 SpO2 98 % Weight 120.3 kg (265 lb 3.4 oz) Peritoneal Dialysis Dialysis Type CCPD Peritoneal Dialysis Setup Completed by clinical therapistfacilities maintenance technician Status End Cycle Number 4 Machine Type [employer] Pro Machine # [id number] Initial Drain Volume (mL) 312 mL Last Fill Volume (mL) 999 mL Fill Volume In (mL) 55271 mL Effluent Volume Out (mL) 62793 ml Effluent Appearance Clear;Yellow Balance This Exchange (mL) 1788 mL Peritoneal Dialysis Catheter Continuous cycling No placement date or time found. Placed by External Staff?: Other (Comment) Dialysis Type: Continuous cycling Status Deaccessed;Clamped Dressing Gauze Dressing Status Clean, dry, intact ALING PROJECT ENGINEER * Pj Duckworth RN - 06/27/2022 8:21 PM CST Started CCPD. Target treatment time is 9 hours. ALING PROJECT ENGINEER * Pj Duckworth RN - 06/27/2022 6:24 AM CST 06/27/22 0600 Peritoneal Dialysis Dialysis Type CCPD Peritoneal Dialysis Setup Completed by clinical therapistfacilities maintenance technician Status End Cycle Number 4 Machine Type [employer] Pro Machine # [id number] Initial Drain Volume (mL) 690 mL Last Fill Volume (mL) 785 mL Fill Volume In (mL) 60652 mL Effluent Volume Out (mL) 32925 ml Effluent Appearance Clear;Yellow Balance This Exchange (mL) 1944 mL Peritoneal Dialysis Catheter Continuous cycling No placement date or time found. Placed by External Staff?: Other (Comment) Dialysis Type: Continuous cycling Status Deaccessed;Clamped Dressing Gauze Dressing Status Clean, dry, intact ALING PROJECT ENGINEER * Pj Duckworth RN - 06/26/2022 7:52 PM CST Started CCPD. Target treatment time is 9 hours. ALING PROJECT ENGINEER * Pj Duckworth RN - 06/25/2022 8:41 PM CDT Started CCPD. Target treatment time is 9 hours. * Pj Duckworth RN - 06/25/2022 6:09 AM CDT 06/25/22 0600 Peritoneal Dialysis Dialysis Type CCPD Peritoneal Dialysis Setup Completed by clinical therapistfacilities maintenance technician Status End Cycle Number 4 Machine Type [employer] Pro Machine # [id number] Initial Drain Volume (mL) 423 mL Last Fill Volume (mL) 999 mL Fill Volume In (mL) 26303 mL Effluent Volume Out (mL) 58290 ml Effluent Appearance Clear;Yellow Balance This Exchange [...] Nava made aware, this nurse informed by to hold off on dialysis. * Stephie [...] at 150 ml/hr. 4K/2.5Ca dialysate fluid used. ELECTRICAL PROSPECTOR has no questions or concerns at this time, contact number left at bedside. * Mell Daniel RN - 06/19/2022 10:01 AM CDT CVVHDF reset. Prismaflex #12 used. Warmer set at 40.5 using toney tubing through RIJ catheter. All pressures within normal limits. UF rate at 200 ml/hr. 4K/2.5Ca dialysate fluid used. ELECTRICAL PROSPECTOR has no questions or concerns at this [...] Type CCPD Peritoneal Dialysis Setup Completed by clinical therapistfacilities maintenance technician Status End Initial Drain Volume (mL) 429 [...] Change Due 06/19/22 Site Assessment Clean and dry;[place] * Jaja Mojica RN - 06/17/2022 12:43 PM CDT CCPD initiated per protocol and per order. Aury, ELECTRICAL PROSPECTOR notified and contact phone number left atthe bedside. * Jaja Mojica RN - 06/17/2022 12:21 PM CDT Pt's CCPD tx ended per protocol. Last fill of 0mL, total UF of 1213 clear, yellow, non odorous effluent. Aury, ELECTRICAL PROSPECTOR notified. Setting up next CCPD ordered to [...] without redness or drainage. Skin cleaned with [place] Secura skin cleanser, dried, then a thin [...] Blood flow and pressures WNL. Spoke to ELECTRICAL PROSPECTORLUAN Ramos, she has no questions or concerns [...] on venous line. 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 [...] degrees with alexander cord on return line. ELECTRICAL PROSPECTOR has no questions or concerns at this [...] orders [place]. [place] [address] ml over 4Cycles of 2800 ml each [...] was cleansed no gentamicin cream order jay scottfy renal fellow Covered with gauze dressing. Treatment [...] gout, BEN on CPAP initially presented to [facility] for generalized weakness, n/v, diarrhea, and chest [...] another 6u IV regular insulin given 06/08: CCM - -C/f DKA given BG in 300s, [...] started to prevent him from going to kgsffhi66/20: CCM - #DKA - resolved In CCU, [...] part of the patient???s medical record. Sincerely, [facility] Information Management ALING PROJECT ENGINEER * Consults, Subsequent - Dora Delarosa SECURITY OPERATIONS CENTER ANALYST - 06/29/2022 12:55 PM SIGNALING PROJECT ENGINEER Endocrinology & Diabetes Progress Note Patient: Adelia Garvin Jr., 51 y.o. male (: 1970) Room: [place] [id number] ( ) LOS: 25 Adelia Garvin Jr. [...] There were no acute events overnight. Mr. Newcombe reports his appetite is OK today. My [...] agitation. 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, with detention use of insulin, complicated by ESRD on PD, CAD s/p PCI, CHF - HbA1c 7.4% - Uses Omnipod and Dexcom G6 at home, not currently on this- doesn't have the supplies -On significantly higher basal rates on pump at night due to peritoneal dialysis -home settings: Basal rate 0330 >>1.7 0800 >> 0.8 2000 >> 5.8 ICR1:6.5 ISF1:25 DOV595 TIA 4 Over the previous 24 hours, [...] recommend increasing the basal insulin dose from 4187-3957 today. We will continue to intensely monitor [...] yearly or sooner as indicated by your eyeglass lens cutter # ESRD on PD - CKD and ESRD are independent risk factors for hypoglycemia ## Discharge Planning - Follow-up with home deblocker -- Dora Delarosa NP Endocrinology, Metabolism, & Lipid Research Contact Info: New Consults: [phone]) General Endocrine (Non-Diabetes): [phone] (Check 'Treatment Team' assignment for Diabetes 1 vs 2 vs 3) Diabetes 1: Diabetes Fellow: [phone] Diabetes 2: Dora Delarosa SECURITY OPERATIONS CENTER ANALYST: [phone] Diabetes 3: See Treatment Team Provider (or call Dora Delarosa, above) Diabetes After-Hours & Weekends: Diabetes Fellow ALING PROJECT ENGINEER * Plan of Care - Elsie Gonzalez RN - 06/29/2022 11:32 AM CST [facility] [id number] Post Acute Care Transfer Report Adelia Garvin Jr. , : 1970, Sex: M Adm: 06/04/2022, D/C: Post Acute Care Transfer Report Patient Demographics Address [address] [place] [address] (Home) *Preferred* E-mail Address [email or web address] PCP and Center Primary Care Provider Aditya Castro MD [facility] Parent Location Code Status Information Code Status Full Code Physicians Chat With All Treatment Team Provider ED Prov Role Provider Team Specialty From To Frank Bowers MD -- Attending Provider -- Internal Medicine 06/28/22 0513 -- Champ Osborne MD PhD -- Surgeon -- Cardiology 06/06/22 0626 -- Allergies as of 06/29/2022 Reviewed by Carey Vallejo RT on 06/21/2022 Noted Reaction Type Reactions [...] Type 2 diabetes mellitus treated with insulin ([facility]) (HCC) (Chronic) Chronic 03/25/2015 - Present 03/25/2015 by Yamilet Valerio PA Entered by Yamilet Valerio PA Overview Signed 11/25/2016 5:29 AM by Yamilet Valerio PA Insulin treated Type II diabetes mellitus Chronic kidney disease, stage III (moderate) ([facility]) (Chronic) Chronic 03/25/2015 - Present 03/25/2015 byYamilet [...] Valerio PA Hyperlipidemia 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[place] artery of [place] heart with stable angina pectoris ([facility]) (HCC) 05/23/2017 - Present 06/22/2022 by Luiz Lewis DO Entered by Abelardo Petit MD History of coronary artery stent placement 05/23/2017 - Present 05/23/2017 by Abelardo Petit MD Entered by Abelardo Petit MD Hypertension (Chronic) Chronic 01/18/2013 - Present 11/22/2013 by Intf Conv, Tw Problems Entered by ITNf Conv, Tw Problems Type 1 diabetes mellitus [...] Robbins Added automatically from request for surgery [id number] DELETED: Angina pectoris (HCC) 06/04/2022 - Present [...] MD Added automatically from request for surgery [id number] Anemia 06/22/2022 - Present 06/29/2022 by Frank Bowers MD Entered by Luiz Lewis DO All Assessment & Plan Notes ESRD (end stage renal disease) ([facility]) ([facility]) 06/22/2022 - Present 06/29/2022 by Frank Bowers MD Entered by Luiz Lewis DO All Assessment & Plan Notes Acute on chronic HFrEF (heart failure with reduced ejection fraction) ([facility]) 06/22/2022 - Present 06/29/2022 by Frank Bowers MD Entered by Luiz Lewis DO All Assessment & Plan Notes Atrial fibrillation ([facility]) ([facility]) 06/22/2022 - Present 06/29/2022 by Frank Bowers MD Entered by Luiz Lewis DO All Assessment & Plan Notes Principal NSTEMI (non-ST elevated myocardial infarction) ([facility]) ([facility]) 06/22/2022 - Present 06/29/2022 by Frank Bowers MD Entered by Luiz Lewis DO All Assessment & Plan Notes Cardiogenic shock ([facility]) 06/22/2022 - Present 06/29/2022 by Frank Bowers [...] ...filed at 06/04/2022 2300 Patient Language and Pentecostal Flowsheet Row Most Recent Value Patient's Preferred [...] 06/29/22 0743 36.8 ??C (98.2 ??F) -- 18 124/52 99 % -- RS 06/29/22 0632 -- -- -- -- -- -- 118.1 kg (260 lb 6.4 oz) 06/28/22 2317 37.2 ??C (99 ??F) -- 18 113/51 95 % -- LC 06/28/22 2010 37.2 ??C (99 ??F) -- 70 18 113/56 96 % -- LC 06/28/22 1500 37.2 ??C (99 ??F) -- 73 20 98/54 93 % -- VM 06/28/22 0823 36.4 ??C (97.5 ??F) -- 18 125/59 97 % -- TM 06/28/22 0600 36.7 ??C (98.1 ??F) -- 16 124/62 98 % 120.3 kg (265 lb 3.4 oz) SURINDER Intake/Output 06/26/22 0700 - 06/27/22 0659 06/27/22 0700 - 06/28/22 0659 06/28/22 0700 - 06/29/22 0659 06/29/22 0700 - 06/30/22 0659 Total Total 4844-5737 1463-3555 0564-9731 Total 2281-5661 5144-3611 7814-2084 Total Intake (ml) 12667 95168 400 360 80258 27082 360 -- -- 360 Output (ml) 70685 62103 150 -- 54128 69641 -- -- -- -- Net (ml) -1709 [...] as: PriLOSEC acetaminophen (TYLENOL) tablet 1,000 mg [[id number]] Ordering Provider: Luiz Lewis DO Status: Dispensed Ordered On: 06/22/221923 Start: 06/22/221929 Ordered Dose (Remaining/Total): 1,000 mg (--/--) Route: oral Frequency: Every 6 hours PRN Ordered Rate/Order Duration: -- / -- Timestamps Action Dose Route Other Information Performed 06/27/221746 Documented: 06/27/221746 Given 1,000 mg oral Performed by: Manda Lake RN Scanned Package: 41979-433-85, 08718-801-87 acetaminophen (TYLENOL) tablet 325 mg [[id number]] Ordering Provider: Meme Castro MD Status: Completed (Past End Date/Time) Ordered On: 06/15/22 1014 Starts/Ends: 06/15/22 1045 - 06/15/22 0945 Ordered Dose (Remaining/Total): 325 mg (0/1) Route: oral Frequency: Once Ordered Rate/Order Duration: -- / -- Timestamps Action Dose Route Other Information Performed 10/26/22 0945 Documented: 06/15/22 1104 Given 325 mg oral Performed by: Ravi Hollingsworth RN Scanned Package: [address]-8 albuterol HFA (PROVENTIL HFA,VENTOLIN HFA,PROAIR HFA) 90 mcg/actuation inhaler 2 puff [[id number]] Ordering Provider: Fernando Torres MD Status: Dispensed Ordered On: 06/05/22244 Start: 06/05/22228 Ordered Dose (Remaining/Total): 2 puff (--/--) Route: inhalation Frequency: Every 6 hours PRN (membership correspondent) Ordered Rate/Order Duration: -- / -- Timestamps Action Dose Route Other Information Performed 06/15/22249 Documented: 06/15/22252 Given 2 puff inhalation Performed by: Juanito Hernandez RRT Scanned Package: [id number] alteplase (CATHFLO) 1 mg/mL syringe (premix) 1 mg [[id number]] Ordering Provider: Lavern Morrison MD Status: Completed (Past End Date/Time) Ordered On: 06/09/22409 Starts/Ends: 06/09/22444 - 06/09/22447 Ordered Dose (Remaining/Total): 1 mg (0/1) Route: intra-catheter Frequency: Once Ordered Rate/Order Duration: -- / -- Admin Instructions: 60 to 120 minute dwell time. Refrigerate Timestamps Action Dose Route Other Information Performed 06/09/22447 Documented: 06/09/22447 Given 1 mg intra-catheter Performed by: Rachel Masters, LUAN Scanned Package: 6491-4903-79 alteplase (CATHFLO) 1 mg/mL syringe (premix) 1 mg [[id number]] Ordering Provider: Robert Henry MD Status: Completed (Past End Date/Time) Ordered On: 06/11/22 0756 Starts/Ends: 06/11/22 0830 - 06/11/22 0921 Ordered Dose (Remaining/Total): 1 mg (0/1) Route: intra-catheter Frequency: Once Ordered Rate/Order Duration: -- / -- Admin Instructions: 60 to 120 minute dwell time. Refrigerate Timestamps Action Dose Route Other Information Performed 06/11/22920 Documented: 06/11/22924 Given 1 mg intra-catheter Performed by: Manda Pickett RN Scanned Package: 1236-4345-15 alteplase (CATHFLO) 1 mg/mL syringe (premix) 2 mg [[id number]] Ordering Provider: Robert Henry MD Status: Completed (Past End Date/Time) Ordered On: 06/11/221655 Starts/Ends: 06/11/221729 - 06/11/221809 Ordered Dose (Remaining/Total): 2 mg (0/1) Route: intra-catheter Frequency: Once Ordered Rate/Order Duration: -- / -- Admin Instructions: 60 to 120 minute dwell time. Refrigerate Timestamps Action Dose Route Other Information Performed 06/11/221809 Documented: 06/11/221809 Given 2 mg intra-catheter Performed by: Manda Pickett RN Scanned Package: 0505-8409-81, 7318-2588-48 alteplase (CATHFLO) 1 mg/mL syringe (premix) 2 mg [[id number]] Ordering Provider: Robert Henry MD Status: Completed (Past End Date/Time) Ordered On: 06/11/221655 Starts/Ends: 06/11/221729 - 06/11/221810 Ordered Dose (Remaining/Total): 2 mg (0/1) Route: intra-catheter Frequency: Once Ordered Rate/Order Duration: -- / -- Admin Instructions: 60 to 120 minute dwell time. Refrigerate Timestamps Action Dose Route Other Information Performed 06/11/221810 Documented: 06/11/221810 Given 2 mg intra-catheter Performed by: Manda Pickett RN Scanned Package: 5000-9189-78, 2936-5126-12 amiodarone (NEXTERONE) 150 mg/100 mL (1.5 mg/mL) in dextrose (premix) 150 mg [[id number]] Ordering Provider: Jeffrey Green MD Status: Completed (Past End Date/Time) Ordered On: 06/18/22 183 Starts/Ends: 06/18/221914 - 06/18/221851 Ordered Dose (Remaining/Total): [...] (1.5 mg/mL) in dextrose (premix) 150 mg [[id number]] Ordering Provider: Lavern Morrison MD Status: Completed (Past End Date/Time) Ordered On: 06/19/22 0134 Starts/Ends: 06/19/22214 - 06/19/22235 Ordered Dose (Remaining/Total): 150 mg (0/1) Route: intravenous Frequency: Once Ordered Rate/Order Duration: 600 mL/hr / 10 Minutes Admin Instructions: Use filter 0.22 micron or less Timestamps Action Dose / Rate / Duration Route Other Information Performed 06/19/22225 Documented: 06/19/22225 New Bag 150 mg 600 mL/hr 10 Minutes intravenous Performed by: Carlos Esparza RN Scanned Package: 92662-146-27 amiodarone (NEXTERONE) 150 mg/100 mL (1.5 mg/mL) in dextrose (premix) 150 mg [[id number]] Ordering Provider: Lavern Morrison MD Status: Completed [...] Performed by: Carlos Esparza RN Scanned Package: 23337-544-04 amiodarone (NEXTERONE) 150 mg/100 mL (1.5 mg/mL) in dextrose (premix) 150 mg [[id number]] Ordering Provider: Tyra De La Torre MD Status: Completed (Past End Date/Time) Ordered On: 06/20/22 1630 Starts/Ends: 06/20/22 170 - 06/20/22 174 Ordered Dose (Remaining/Total): 150 mg (0/1) Route: intravenous Frequency: Once Ordered Rate/Order Duration: 600 mL/hr / 10 Minutes Admin Instructions: Use filter 0.22 micron or less Timestamps Action Dose / Rate / Duration Route Other Information Performed 06/20/221736 Documented: 06/20/221736 New Bag 150 mg 600 mL/hr 10 Minutes intravenous Performed by: Margaret Escobar RN aspirin chewable tablet 81 mg [[id number]] Ordering Provider: Marcelina Pickard NP Status: Completed (Past End Date/Time) Ordered On: 06/07/22 1112 Starts/Ends: 06/07/22 1145 - 06/07/22 1137 Ordered Dose (Remaining/Total): 81 mg (0/1) Route: oral Frequency: Once Ordered Rate/Order Duration: -- / -- Timestamps Action Dose Route Other Information Performed 06/07/22 1137 Documented: 06/07/22 1138 Given 81 mg oral Performed by: Carolyn Troncoso RN Scanned Package: 5002-4257-59 aspirin chewable tablet 81 mg [[id number]] Ordering Provider: Luiz Lewis DO Status: Dispensed Ordered On: 06/22/22 1924 Start: 06/23/22 0900 Ordered Dose (Remaining/Total): 81 mg (--/--) Route: oral Frequency: Daily Ordered Rate/Order Duration: -- / -- Timestamps Action Dose Route Other Information Performed 06/29/22 0823 Documented: 06/29/22 0824 Given 81 mg oral Performed by: Manda Lake RN Scanned Package: 9693-1502-99 atorvastatin (LIPITOR) tablet 80 mg [[id number]] Ordering Provider: Luiz Lewis DO Status: Dispensed Ordered On: 06/22/221923 Start: 06/23/22899 Ordered Dose (Remaining/Total): 80 mg (--/--) Route: oral Frequency: Daily Ordered Rate/Order Duration: -- / -- Timestamps Action Dose Route Other Information Performed 06/29/22822 Documented: 06/29/22823 Given 80 mg oral Performed by: Manda Lake RN Scanned Package: [address]-1 azithromycin (ZITHROMAX) tablet 500 mg [[id number]] Ordering Provider: Russ Milner MD Status: Completed (Past End Date/Time) Ordered On: 06/05/22244 Starts/Ends: 06/05/22 09 - 06/05/22 0849 Ordered Dose (Remaining/Total): 500 mg (0/1) Route: oral Frequency: Once Ordered Rate/Order Duration: -- / -- Timestamps Action Dose Route Other Information Performed 06/05/22848 Documented: 06/05/22 0850 Given 500 mg oral Performed by: Nona Fernandez RN Scanned Package: [address]-8, [address]-2 barium sulfate (VARIBAR NECTAR) 40 % (w/v) nectar [[id number]] Ordering Provider: Tyra De La Torre MD [...] PUDDING) 40 % (w/v), 30% (w/w) pudding [[id number]] Ordering Provider: Tyra De La Torre MD Status: Completed (Past End Date/Time) Ordered On: 06/21/221416 Starts/Ends: 06/21/221408 - 06/21/221408 Ordered Dose (Remaining/Total): -- (01) Route: oral Frequency: Once in imaging Ordered Rate/Order Duration: -- / -- Timestamps Action Dose Route Other Information Performed 06/21/221408 Documented: 06/21/221427 Contrast Given 10 mL oral Performed by: Carey Vallejo RT barium sulfate (VARIBAR THIN LIQUID) 81 % (w/w) thin liquid [[id number]] Ordering Provider: Tyra De La Torre MD Status: Completed (Past End Date/Time) Ordered On: 06/21/221416 Starts/Ends: 06/21/221406 - 06/21/221406 Ordered Dose (Remaining/Total): -- (01) Route: oral Frequency: Once in imaging Ordered Rate/Order Duration: -- / -- Timestamps Action Dose Route Other Information Performed 06/21/221406 Documented: 06/21/221426 Contrast Given 60 mL oral Performed by: Carey Vallejo RT barium sulfate (VARIBAR) 40 % (w/v) 29% (w/w) suspension 250 mL [[id number]] Ordering Provider: Tyra De La Torre MD [...] ml given calcitRIOL (ROCALTROL) capsule 0.25 mcg [[id number]] Ordering Provider: Tyra De La Torre MD Status: Dispensed Ordered On: 06/22/22921 Start: 06/22/22 1000 Ordered Dose (Remaining/Total): 0.25 mcg (--/--) Route: oral Frequency: Daily Ordered Rate/Order Duration: -- / -- Timestamps Action Dose Route Other Information Performed 06/29/22822 Documented: 06/29/22823 Given 0.25 mcg oral Performed by: Manda Lake RN Scanned Package: [id number] calcium acetate(phosphat bind) (PHOSLO) capsule 667 mg [[id number]] Ordering Provider: Fernando Torres MD Status: Dispensed Ordered On: 06/05/22244 Start: 06/05/22799 Ordered Dose (Remaining/Total): 667 mg (--/--) Route: oral Frequency: 4 times daily Ordered Rate/Order Duration: -- / -- Admin Instructions: Take with food Timestamps Action Dose Route Other Information Performed 06/29/22822 Documented: 06/29/22823 Given 667 mg oral Performed by: Manda Lake RN Scanned Package: 40891-558-99 calcium carbonate (TUMS) chewable tablet 500 mg [[id number]] Ordering Provider: Earl Samuels MD Status: Completed (Past End Date/Time) Ordered On: 06/24/222111 Starts/Ends: 06/24/222144 - 06/24/222137 Ordered Dose (Remaining/Total): 200 mg of elemental calcium (0/1) Route: oral Frequency: Once Ordered Rate/Order Duration: -- / -- Timestamps Action Dose Route Other Information Performed 06/24/222137 Documented: 06/24/222137 Given 500 mg oral Performed by: Sasha Subramanian RN Scanned Package: 1711-4827-59 clopidogreL (PLAVIX) tablet 600 mg [[id number]] Ordering Provider: Finn Dupont MD Status: Completed (Past End Date/Time) Ordered On: 06/07/22806 Starts/Ends: 06/07/22844 - 06/07/22956 Ordered Dose (Remaining/Total): 600 mg (0/1) Route: oral Frequency: Once Ordered Rate/Order Duration: -- / -- Timestamps Action Dose Route Other Information Performed 06/07/22956 Documented: 06/07/22957 Given 600 mg oral Performed by: Caitlyn Guzman, LUAN Scanned Package: 00794-557-59, 85488-879-26 clopidogreL (PLAVIX) tablet 75 mg [[id number]] Ordering Provider: Luiz Lewis DO Status: Dispensed Ordered On: 06/22/221923 Start: 06/23/22 0900 Ordered Dose (Remaining/Total): 75 mg (--/--) Route: oral Frequency: Daily Ordered Rate/Order Duration: -- / -- Timestamps Action Dose Route Other Information Performed 06/29/22822 Documented: 06/29/22823 Given 75 mg oral Performed by: Manda Lake RN Scanned Package: 7278-2143-13 Dianeal low calcium-dextrose 1.5 % 2,000 mL dialysis solution [[id number]] Ordering Provider: James Horvath MD Status: Dispensed [...] calcium-dextrose 2.5 % 2,000 mL dialysis solution [[id number]] Ordering Provider: Tom Mendez MD Status: Dispensed (Past End Date/Time) Ordered On: 06/26/22 1309 Starts/Ends: 06/26/22 1345 - 06/27/22 1937 Ordered Dose (Remaining/Total): -- (--/--) Route: intraperitoneal Frequency: Continuous Ordered Rate/Order Duration: -- / -- Question Answer Comment CCPD bag number: 3 -- Timestamps Action Dose / Rate / Duration Route Other Information Performed 06/26/221937 Documented: 06/26/221937 New Bag -- intraperitoneal Performed by: Pj Duckworth RN Dianeal low calcium-dextrose 2.5 % 5,000 mL dialysis solution [[id number]] Ordering Provider: Yovanny Curtis MD Status: Dispensed [...] calcium-dextrose 2.5 % 5,000 mL dialysis solution [[id number]] Ordering Provider: Yovanny Curtis MD Status: Dispensed [...] calcium-dextrose 2.5 % 5,000 mL dialysis solution [[id number]] Ordering Provider: Tom Mendez MD Status: Dispensed [...] calcium-dextrose 2.5 % 5,000 mL dialysis solution [[id number]] Ordering Provider: Tom Mendez MD Status: Dispensed [...] -- intraperitoneal Performed by: Pj Duckworth, LUAN diphenhydrAMINE (BENADRYL) capsule 50 mg [[id number]] Ordering Provider: Veronica Tavares MD Status: Completed [...] Dose Route Other Information Performed 06/07/221017 Documented: 06/07/22 101 Given 50 mg oral Performed by: Caitlyn Guzman RN Comments: optical lab technician premed Scanned Package: 3580-4325-78 Extraneal 7.5% ULTRABAG 2,000 mL dialysis solution [[id number]] Ordering Provider: Tom Mendez MD Status: Dispensed (Past End Date/Time) Ordered On: 06/26/22 130 Starts/Ends: 06/26/221344 - 06/27/221936 Ordered Dose (Remaining/Total): -- (--/--) Route: intraperitoneal Frequency: Continuous Ordered Rate/Order Duration: -- / -- Timestamps Action Dose / Rate / Duration Route Other Information Performed 06/26/221937 Documented: 06/26/221937 New Bag -- intraperitoneal Performed by: Pj Duckworth, LUAN ezetimibe (ZETIA) tablet 10 mg [[id number]] Ordering Provider: Luiz Lewis DO Status: Dispensed Ordered On: 06/22/22 1924 Start: 06/23/22 0900 Ordered Dose (Remaining/Total): 10 mg (--/--) Route: oral Frequency: Daily Ordered Rate/Order Duration: -- / -- Timestamps Action Dose Route Other Information Performed 06/29/22 08 Documented: 06/29/22 08 Given 10 mg oral Performed by: Manda Lake RN Scanned Package: 38825-671-16 furosemide (LASIX) 10 mg/mL injection 120 mg [[id number]] Ordering Provider: Dimitrios Hensley MD Status: Completed [...] Performed by: Nona Fernandez RN Scanned Package: 0439-3179-86, 3774-3091-28 gentamicin (GARAMYCIN) 0.1 % cream [[id number]] Ordering Provider: James Horvath MD Status: Dispensed [...] Performed by: Tequila Ingram RN Scanned Package: 04702-395-41 heparin 1,000 unit/mL injection 1.5-6.9 mL [[id number]] Ordering Provider: James Horvath MD Status: Completed (Past End Date/Time) Ordered On: 06/20/224 Starts/Ends: 06/20/22 1300 - 06/20/221232 Ordered Dose (Remaining/Total): 1.5-6.9 mL (0/1) Route: intra-catheter Frequency: Once Ordered Rate/Order Duration: -- / -- Admin Instructions: Indwell volume of catheter lumens post treatment. Give volume based upon manager mass's recommendation (usual range 1.2 - 3 mL) in each lumen. Timestamps Action Dose Route Other Information Performed 06/20/221232 Documented: 06/20/221232 Given 3 mL intra-catheter Performed by: Margaret Escobar RN Scanned Package: 9823-0715-44 heparin 1,000 unit/mL injection 4,000 Units [[id number]] Ordering Provider: Russ Milner MD Status: Completed [...] Signoff by: Ayleen Doan RN Scanned Package: 6700-8211-07 heparin 5,000 unit/mL injection 5,000 Units [[id number]] Ordering Provider: Robert Henry MD Status: Dispensed Ordered On: 06/22/22 1107 Start: 06/22/22 1400 Ordered Dose (Remaining/Total): 5,000 Units (--/--) Route: subcutaneous Frequency: Every 8 hours scheduled Ordered Rate/Order Duration: -- / -- Timestamps Action Dose Route / Site Other Information Performed 06/29/22500 Documented: 06/29/22 050 Given 5,000 Units subcutaneous Left Lower Abdomen Performed by: Radha Paul RN Scanned Package: 87389-309-72 heparin in 0.9% sodium chloride 25,000 unit/250 mL infusion (premix) [[id number]] Ordering Provider: Champ Osborne MD PhD Status: Completed (Past End Date/Time) Ordered On: 06/07/221430 Frequency: Continuous PRN Timestamps Action Dose / Rate Route / Site / Linked Line Other Information Performed 06/07/221429 Documented: 06/07/221430 New Bag 14 Units/kg/hr 19.88 mL/hr -- Performed by: Stephanie Bacon RN influenza quadrivalent 4016-1479 (FLULAVAL,FLUARIX,FLUZONE) 60 mcg (15 mcg x 4)/0.5 mL vaccine (STANDARD age 6 months and up) 0.5 mL [[id number]] Ordering Provider: Champ Osborne MD PhD Status: Completed (Past End Date/Time) Ordered On: 06/04/222316 Starts/Ends: 06/04/222316 - 06/04/222335 Ordered Dose (Remaining/Total): 0.5 mL (0/1) Route: intramuscular Frequency: During hospitalization Ordered Rate/Order Duration: -- / -- Timestamps Action Dose Route / Site Other Information Performed 06/04/222335 Documented: 06/04/222337 Given 0.5 mL intramuscular Right Deltoid Performed by: Kristie Banegas RN Scanned Package: 01440-404-36 insulin lispro (HumaLOG, ADMELOG) 100 unit/mL injection 5 Units [[id number]] Ordering Provider: Lavern Morrison MD Status: Completed (Past End Date/Time) Ordered On: 06/22/22604 Starts/Ends: 06/22/22604 - 06/22/22621 Ordered Dose (Remaining/Total): 5 Units (0/1) Route: subcutaneous Frequency: Once Ordered Rate/Order Duration: -- / -- Timestamps Action Dose Route / Site Other Information Performed 06/22/22621 Documented: 06/22/22621 Given 5 Units subcutaneous Left Lower Abdomen Performed by: Annmarie Ayala, LUAN Scanned Package: 5232-4393-21 insulin lispro (HumaLOG, ADMELOG) 100 unit/mL injection 5 Units [[id number]] Ordering Provider: Indiana Irwin III, MD Status: Completed (Past End Date/Time) Ordered On: 06/24/22 014 Starts/Ends: 06/24/22214 - 06/24/22156 Ordered Dose (Remaining/Total): 5 Units (0/1) Route: subcutaneous Frequency: Once Ordered Rate/Order Duration: -- / -- Timestamps Action Dose Route / Site Other Information Performed 06/24/22156 Documented: 06/24/22157 Given 5 Units subcutaneous Right Upper Arm Performed by: Mell Wild RN Scanned Package: 8050-5007-97 insulin lispro (HumaLOG, ADMELOG) 100 unit/mL injection 2 Units [[id number]] Ordering Provider: Carey East MD Status: Completed [...] Performed by: Adelita Self RN Scanned Package: 1929-1904-48 insulin regular (HumuLIN R, NovoLIN R) 100 unit/mL injection 4 Units [[id number]] Ordering Provider: Payam Connor MD Status: Completed (Past End Date/Time) Ordered On: 06/05/22 1013 Starts/Ends: 06/05/22 1045 - 06/05/22 1032 Ordered Dose (Remaining/Total): 4 Units (0/1) Route: intravenous Frequency: Once Ordered Rate/Order Duration: -- / -- Timestamps Action Dose Route Other Information Performed 06/05/22 1032 Documented: 06/05/22 1033 Given 4 Units intravenous Performed by: Nona Fernandez RN Dual Signoff by: Milagros Hinojosa RN Scanned Package: 9881-2283-87 insulin regular (HumuLIN R, NovoLIN R) 100 unit/mL injection 6 Units [[id number]] Ordering Provider: Toyin Alberto MD Status: Completed (Past End Date/Time) Ordered On: 06/05/221429 Starts/Ends: 06/05/221514 - 06/05/221433 Ordered Dose (Remaining/Total): 6 Units (0/1) Route: intravenous Frequency: Once Ordered Rate/Order Duration: -- / -- Timestamps Action Dose Route Other Information Performed 06/05/221433 Documented: 06/05/221433 Given 6 Units intravenous Performed by: Nona Fernandez RN Dual Signoff by: Jacob Luna RN Scanned Package: 3625-3877-36 insulin regular (HumuLIN R, NovoLIN R) 100 unit/mL injection 5 Units [[id number]] Ordering Provider: Jeffrey Green MD Status: Completed (Past End Date/Time) Ordered On: 06/07/221746 Starts/Ends: 06/07/221829 - 06/07/221756 Ordered Dose (Remaining/Total): 5 Units (0/1) Route: intravenous Frequency: Once Ordered Rate/Order Duration: -- / -- Timestamps Action Dose Route Other Information Performed 06/07/221756 Documented: 06/07/221801 Given 5 Units intravenous Performed by: Figueroa Jack RN Dual Signoff by: Ravi Hollingsworth RN Scanned Package: 6646-9078-03 insulin regular (HumuLIN R, NovoLIN R) 100 unit/mL injection 7 Units [[id number]] Ordering Provider: Meme Castro MD Status: Completed [...] Signoff by: Rachel Masters RN Scanned Package: 3753-5420-45 insulin regular (HumuLIN R, NovoLIN R) 100 unit/mL injection 4 Units [[id number]] Ordering Provider: Jeffrey Green MD Status: Completed [...] Signoff by: Rachel Masters RN Scanned Package: 0884-0800-23 INSULIN SUBCUTANEOUS PUMP (HUMALOG) 100 UNITS/ML INSULIN PUMP INFUSION (HumaLOG) patient supplied pump 0-25 Units [[id number]] Ordering Provider: Dora Delarosa NP Status: Verified [...] ER (IMDUR) extended release tablet 30 mg [[id number]] Ordering Provider: Carey East MD Status: Dispensed Ordered On: 06/24/22 1630 Start: 06/24/221714 Ordered Dose (Remaining/Total): 30 mg (--/--) Route: oral Frequency: Daily Ordered Rate/Order Duration: -- / -- Admin Instructions: Tablets that are scored may be split, but do not crush, chew, dissolve, open or otherwise manipulate tablet/capsule. Timestamps Action Dose Route Other Information Performed 06/29/22821 Documented: 06/29/22823 Given 30 mg oral Performed by: Manda Lake RN Scanned Package: 6035-3549-37 lidocaine PF (XYLOCAINE) 10 mg/mL (1 %) preservative free injection [[id number]] Ordering Provider: Aric Cordova MD Status: Completed (Past End Date/Time) Ordered On: 06/18/22 123 Frequency: Code/trauma/sedation medication Timestamps Action Dose Route Other Information Performed 06/18/22 1231 Documented: 06/18/22 123 Given 10 mL Injection Performed by: Aric Cordova MD Documented by: Nick Delarosa, LUAN losartan (COZAAR) tablet 12.5 mg [[id number]] Ordering Provider: Carey East MD Status: Dispensed Ordered On: 06/24/22 171 Start: 06/25/22 09 Ordered Dose (Remaining/Total): 12.5 mg (--/--) Route: oral Frequency: Daily Ordered Rate/Order Duration: -- / -- Timestamps Action Dose Route Other Information Performed 06/29/22821 Documented: 06/29/22823 Given 12.5 mg oral Performed by: Manda Lake RN Scanned Package: 85672-639-46 magnesium sulfate 2 g/50 mL in water (premix) 2 g [[id number]] Ordering Provider: Jeffrey Green MD Status: Completed (Past End Date/Time) Ordered On: 06/18/221837 Starts/Ends: 06/18/221914 - 06/18/222024 Ordered Dose (Remaining/Total): 2 g (0/1) Route: intravenous Frequency: Once Ordered Rate/Order Duration: -- / 60 Minutes Timestamps Action Dose / Duration Route Other Information Performed 06/18/221924 Documented: 06/18/221924 New Bag 2 g 60 Minutes intravenous Performed by: Carlos Esparza RN Scanned Package: 2754-1154-59 metoprolol tartrate (LOPRESSOR) immediate release tablet 25 mg [[id number]] Ordering Provider: Carey East MD Status: Dispensed Ordered On: 06/26/22 1551 Start: 06/27/22 0900 Ordered Dose (Remaining/Total): 25 mg (--/--) Route: oral Frequency: 2 times daily Ordered Rate/Order Duration: -- / -- Timestamps Action Dose Route Other Information Performed 06/29/22821 Documented: 06/29/22823 Given 25 mg oral Performed by: Manda Lake RN Scanned Package: 38263-348-33 midazolam (VERSED) 1 mg/mL injection 2 mg [[id number]] Ordering Provider: Lavern Morrison MD Status: Completed (Past End Date/Time) Ordered On: 06/15/221756 Starts/Ends: 06/15/221829 - 06/15/221804 Ordered Dose (Remaining/Total): 2 mg (0/1) Route: intravenous Frequency: Once Ordered Rate/Order Duration: -- / -- Timestamps Action Dose Route Other Information Performed 06/15/221804 Documented: 06/15/221805 Given 2 mg intravenous Performed by: Ravi Hollingsowrth RN Scanned Package: 1276-8853-41 midazolam (VERSED) bolus from bag 2 mg [[id number]] Ordering Provider: Jeffrey Green MD Status: Completed (Past End Date/Time) Ordered On: 06/16/221719 Starts/Ends: 06/16/221799 - 06/16/221744 Ordered Dose (Remaining/Total): 2 mg (0/1) Route: intravenous Frequency: Once Ordered Rate/Order Duration: -- / -- Timestamps Action Dose Route Other Information Performed 06/16/221744 Documented: 06/16/221756 Bolus from Bag 2 mg intravenous Performed by: Ravi Hollingsworth RN pantoprazole DR (PROTONIX) extended release tablet 40 mg [[id number]] Ordering Provider: Carey East MD Status: Dispensed Ordered On: 06/25/221156 Start: 06/26/22 09 Ordered Dose (Remaining/Total): 40 mg (--/--) Route: oral Frequency: Daily Ordered Rate/Order Duration: -- / -- Admin Instructions: Do not crush, chew, cut, dissolve, open or otherwise manipulate tablet/capsule. Timestamps Action Dose Route Other Information Performed 06/29/22821 Documented: 06/29/22823 Given 40 mg oral Performed by: Manda Lake RN Scanned Package: 3693-8437-16 perflutren protein-a (OPTISON) 0.22 mg/mL injection - ADS Override Pull [[id number]] Status: Completed (Past End Date/Time) Ordered On: [...] in sodium chloride 0.9% 8 mL syringe [[id number]] Ordering Provider: Meme Castro MD Status: Completed [...] CLASSIC) 1.4-0.6 % ophthalmic solution 1 drop [[id number]] Ordering Provider: Jeffrey Green MD Status: Dispensed Ordered On: 06/16/221911 Start: 06/16/222099 Ordered Dose (Remaining/Total): 1 drop (--/--) Route: each eye Frequency: 4 times daily Ordered Rate/Order Duration: -- / -- Timestamps Action Dose Route Other Information Performed 06/29/22821 Documented: 06/29/22823 Given 1 drop each eye Performed by: Manda Lake RN Scanned Package: 5383-0671-95 potassium chloride (KLOR-CON) packet 40 mEq [[id number]] Ordering Provider: Meme Castro MD Status: Completed [...] Performed by: Rachel Masters RN Scanned Package: [address]-8, [address]-4 potassium chloride 40 mEq/100 mL in sterile water (premix) 40 mEq [[id number]] Ordering Provider: Ashley Baer MD Status: Completed (Past End Date/Time) Ordered On: 06/07/222156 Starts/Ends: 06/07/222229 - 06/08/22 020 Ordered Dose (Remaining/Total): 40 mEq (0/1) Route: intravenous Frequency: Once Ordered Rate/Order Duration: 25 mL/hr / 4 Hours Admin Instructions: Total dose = 60 mEq Central line only Timestamps Action Rate Route Other Information Performed 06/07/222299 Documented: 06/08/22 0104 Rate/Dose Verify 25 mL/hr intravenous Performed by: Rachel Masters RN potassium chloride 40 mEq/100 mL in sterile water (premix) 40 mEq [[id number]] Ordering Provider: Meme Castro MD Status: Dispensed [...] Performed by: Rachel Masters RN Scanned Package: 6957-3525-34 potassium chloride ER (KLOR-CON) extended release tablet 30 mEq [[id number]] Ordering Provider: Tyra De La Torre MD [...] Performed by: Carlos Esparza RN Scanned Package: 98536-186-98, 46326-459-91, 72315-584-12 potassium chloride ER (KLOR-CON) extended release tablet 20 mEq [[id number]] Ordering Provider: Carey East MD Status: Completed (Past End Date/Time) Ordered On: 06/27/22 08 Starts/Ends: 06/27/22 0900 - 06/27/22 0857 Ordered Dose (Remaining/Total): 20 mEq (0/1) Route: oral Frequency: Once Ordered Rate/Order Duration: -- / -- Admin Instructions: Do not crush, chew, cut, dissolve, open or otherwise manipulate tablet/capsule. Timestamps Action Dose Route Other Information Performed 06/27/22856 Documented: 06/27/22 08 Given 20 mEq oral Performed by: Manda aLke RN Scanned Package: 1262-0627-22, 5271-5594-83 predniSONE (DELTASONE) tablet 50 mg [[id number]] Ordering Provider: Veronica Tavares MD Status: Completed (Past End Date/Time) Ordered On: 06/06/22 1344 Starts/Ends: 06/07/22 0000 - 06/07/22 1018 Ordered Dose (Remaining/Total): 50 mg (0/3) Route: oral Frequency: Every 6 hours Ordered Rate/Order Duration: -- / -- Admin Instructions: Call Radiology to schedule procedure after the 1st dose is administered. CT Plodding Operator South: 7-[address] Plodding Operator North: 7-5 After Timestamps Action Dose Route Other Information Performed 06/07/22 1018 Documented: 06/07/22 1019 Given 50 mg oral Performed by: Caitlyn Guzman, LUAN Comments: optical lab technician premed Scanned Package: 3010-9323-16 ramelteon (ROZEREM) tablet 8 mg [[id number]] Ordering Provider: Marcelina Pickard NP Status: Dispensed Ordered On: 06/08/22918 Start: 06/08/22918 Ordered Dose (Remaining/Total): 8 mg (--/--) Route: feeding tube Frequency: Nightly PRN Ordered Rate/Order Duration: -- / -- Timestamps Action Dose Route Other Information Performed 06/08/222040 Documented: 06/08/222040 Given 8 mg feeding tube Performed by: Rachel Masters RN Scanned Package: [address]-1 sodium bicarbonate 8.4 % (1 mEq/mL) injection 50 mEq [[id number]] Ordering Provider: Champ Osborne MD PhD Status: Completed (Past End Date/Time) Ordered On: 06/07/22 1348 Starts/Ends: 06/07/22 1430 - 06/07/22 133 Ordered Dose (Remaining/Total): 50 mEq (0/1) Route: intravenous Frequency: Once Ordered Rate/Order Duration: -- / -- Timestamps Action Dose Route Other Information Performed 06/07/221334 Documented: 06/07/22 1351 Given 50 mEq intravenous Performed by: Stephanie Bacon RN sodium chloride 0.9% IVPB 0-250 mL [[id number]] Ordering Provider: Meme Castro MD Status: Completed (Past End Date/Time) Ordered On: 06/20/22 0015 Starts/Ends: 06/20/2299 - 06/20/2257 Ordered Dose (Remaining/Total): 0-250 mL (0/1) Route: intravenous Frequency: Once Ordered Rate/Order Duration: -- / -- Admin Instructions: Prime blood tubing and administer amount needed to clear line (usually 50-100 mL) after transfusion complete. Timestamps Action Dose / Rate Route Other Information Performed 06/20/2257 Documented: 06/20/2258 New Bag 250 mL 50 mL/hr intravenous Performed by: Carlos Esparza RN Scanned Package: 6085-1454-50 sodium chloride 0.9% IVPB 0-250 mL [[id number]] Ordering Provider: Robert Henry MD Status: Completed [...] Performed by: Margaret Escobar RN Scanned Package: 9841-1031-49 Rex Scale Flowsheet Row Most Recent Value Sensory Perceptions 4 ............filed at 06/29/2022814 Moisture 4 ............filed at 06/29/2022814 Activity 3 ............filed at 06/29/2022814 Mobility 3 ............filed at 06/29/2022814 Nutrition 3 ............filed at 06/29/2022814 Friction and Shear 3 ............filed at 06/29/2022814 Rex Scale Score 20 ............filed at 06/29/2022 Neuro Assessment Flowsheet Row Most Recent Value Level of Consciousness Alert, Awake ............filed at 06/29/2022814 Orientation Oriented X4 (person, place, time, situation) ............filed at 06/29/2022814 Speech Clear ............filed at 06/29/2022814 Neuro (WDL) X ............filed at 06/22/2022 08 [...] 06/24/2022807 Urine Color Bambi, Brown ............filed at 06/27/202245 Urine Appearance Clear ............filed at 06/27/2022744 Urine [...] 06/23/2022129 Throat Intact ............filed at 06/23/2022129 Tongue [place], Moist ............filed at 06/23/2022129 Voice Deep ............filed at 06/22/2022 08 Mucous Membrane(s) Moist, [place] ............filed at 06/22/2022 08 Teeth and Gums [...] last 72 hours COVID-19 Coronavirus RNA Nasopharyngeal [[id number]] Resulted: 06/28/22 1703, Result status: Final result Ordering provider: Frank Bowers MD 06/28/22 1517 Resulting lab: [facility] Narrative: Is the patient experiencing any symptoms consistent with COVID (eg. Fever, cough, shortness of breath)?->No What is the reason for testing?->Placement in post-acute care setting (Rapid) Interpretive data: Synonyms for this test include: PCR and NAAT . This test is performed using the [employer] Xpert Xpress plus assay. This is a [...] . This test is performed using the [employer] Xpert Xpress plus assay. This is a [...] COVID-19 RNA Negative Negative -- -- eGFR [[id number]] (Abnormal) Resulted: 06/27/22457, Result status: Final result Ordering provider: Carey East MD 06/27/22350 Resulting lab: [facility] Specimen Information Type Source Collected On Blood -- 06/27/22350 Components Component Value Reference Range Flag Lab eGFR 6 90 - 130 mL/min/1.73 m2 L Low -- Basic metabolic panel [[id number]] (Abnormal) Resulted: 06/27/22457, Result status: Final result Ordering provider: Carey East MD 06/26/22 1800 Resulting lab: [facility] Specimen Information Type Source Collected [...] mg/dL L Low -- CBC without differential [[id number]] (Abnormal) Resulted: 06/27/22434, Result status: Final result Ordering provider: Carey East MD 06/26/22 1800 Resulting lab: [facility] Specimen Information Type Source Collected [...] results found ECG/EMG Results ECG 12 lead [[id number]] Resulted: 06/23/22 1628, Result status: Final result Ordering provider: Craey East MD 06/23/22 1330 Resulted by: Hudson Sal Jr., MD PhD Accession number: [id number] Resulting lab: [facility] [employer] Component Value Reference Range Flag Lab Ventricular Rate EKG/Min 100 BPM -- -- Atrial Rate 100 BPM -- -- MT-Interval (MSEC) 182 ms -- -- QRS-Interval (MSEC) 106 ms -- -- QT-Interval (MSEC) 380 ms -- -- QTc 490 ms -- -- R [place] -47 degrees -- -- T [place] 105 degrees -- -- Diagnosis -- -- [...] on 06/23/2022 4:28:23 PM ECG 12 lead [[id number]] Resulted: 06/23/22 1444, Result status: Preliminary result Ordering provider: Carey East MD 06/23/22 1330 Resulted by: Hudson Sal Jr., MD PhD Accession number: [id number] Resulting lab: [facility] Component Value Reference Range Flag Lab Ventricular Rate EKG/Min 100 BPM -- -- Atrial Rate 100 BPM -- -- MT-Interval (MSEC) 182 ms -- -- QRS-Interval (MSEC) 106 ms -- -- QT-Interval (MSEC) 380 ms -- -- QTc 490 ms -- -- R [place] -47 degrees -- -- T [place] 105 degrees -- -- Diagnosis -- -- [...] depressed in Lateral leads ECG 12 lead [[id number]] Resulted: 06/22/22 1055, Result status: Final result Ordering provider: Fernando Torres MD 06/19/22 1255 Resulted by: Hudson Sal Jr., MD PhD Accession number: [id number] Resulting lab: [facility] [employer] Component Value Reference Range Flag Lab Ventricular Rate EKG/Min 126 BPM -- -- Atrial Rate 63 BPM -- -- QRS-Interval (MSEC) 106 ms -- -- QT-Interval (MSEC) 360 ms -- -- QTc 521 ms -- -- R [place] -53 degrees -- -- T [place] 125 degrees -- -- Diagnosis -- -- [...] on 06/22/2022 10:55:43 AM ECG 12 lead [[id number]] Resulted: 06/21/22 1328, Result status: Final result Ordering provider: Fernando Torres MD 06/18/22 1831 Resulted by: Kenn Billingsley MD Accession number: [id number] Resulting lab: [facility] Component Value Reference Range Flag Lab Ventricular Rate EKG/Min 133 BPM -- -- Atrial Rate 147 BPM -- -- QRS-Interval (MSEC) 102 ms -- -- QT-Interval (MSEC) 332 ms -- -- QTc 494 ms -- -- R [place] -43 degrees -- -- T [place] 123 degrees -- -- Diagnosis -- -- [...] on 06/21/2022 1:28:53 PM ECG 12 lead [[id number]] Resulted: 06/08/22 0942, Result status: Final result Ordering provider: Jeffrey Green MD 06/07/22 1647 Resulted by: Jess Bustos MD Accession number: [id number] Resulting lab: [facility] [employer] Component Value Reference Range Flag Lab Ventricular Rate EKG/Min 51 BPM -- -- Atrial Rate 51 BPM -- -- MT-Interval (MSEC) 212 ms -- -- QRS-Interval (MSEC) 130 ms -- -- QT-Interval (MSEC) 580 ms -- -- QTc 534 ms -- -- P [place] 69 degrees -- -- R [place] -38 degrees -- -- T [place] 95 degrees -- -- Diagnosis -- -- [...] on 06/08/2022 9:42:26 AM ECG 12 lead [[id number]] Resulted: 06/07/22 0830, Result status: Final result Ordering provider: Toyin Alberto MD 06/05/221447 Resulted by: Jess Bustos MD Accession number: [id number] Resulting lab: [facility] [employer] Component Value Reference Range Flag Lab Ventricular Rate EKG/Min 73 BPM -- -- Atrial Rate 73 BPM -- -- MT-Interval (MSEC) 184 ms -- -- QRS-Interval (MSEC) 106 ms -- -- QT-Interval (MSEC) 442 ms -- -- QTc 486 ms -- -- P [place] 49 degrees -- -- R [place] -33 degrees -- -- T [place] 87 degrees -- -- Diagnosis -- -- -- -- Result: Normal sinus rhythm Left axis deviation QS in V1 and V2, a nonspecific finding with multiple causes, including lead misplacement or septal infarction in 20% Abnormal ECG Confirmed by JESS BUSTOS M.D ([id number]) on 06/07/2022 8:30:06 AM ECG 12 lead [[id number]] Resulted: 06/07/22 0625, Result status: Preliminary result Ordering provider: Toyin Alberto MD 06/05/221447 Resulted by: Jess Bustos MD Accession number: [id number] Resulting lab: [facility] Component Value Reference Range Flag Lab Ventricular Rate EKG/Min 73 BPM -- -- Atrial Rate 73 BPM -- -- MT-Interval (MSEC) 184 ms -- -- QRS-Interval (MSEC) 106 ms -- -- QT-Interval (MSEC) 442 ms -- -- QTc 486 ms -- -- P [place] 49 degrees -- -- R [place] -33 degrees -- -- T [place] 87 degrees -- -- Diagnosis -- -- -- -- Result: Normal sinus rhythm Possible Left atrial enlargement Left axis deviation Septal infarct , age undetermined Abnormal ECG ECG 12 lead [[id number]] Resulted: 06/06/222156, Result status: Final result Ordering provider: Russ Milner MD 06/04/222154 Resulted by: Kenn Billingsley MD Accession number: [id number] Resulting lab: [facility] Component Value Reference Range Flag Lab Ventricular Rate EKG/Min 47 BPM -- -- Atrial Rate 47 BPM -- -- MT-Interval (MSEC) 228 ms -- -- QRS-Interval (MSEC) 116 ms -- -- QT-Interval (MSEC) 532 ms -- -- QTc 470 ms -- -- P [place] 39 degrees -- -- R [place] -33 degrees -- -- T [place] 105 degrees -- -- Diagnosis -- -- -- -- Result: Sinus bradycardia with 1st degree A-V block Left axis deviation Incomplete left bundle branch block Nonspecific ST and T wave abnormality Long QTc When compared with ECG of 23-MAR-2017 00:14, MT interval has increased QTc has increased Rate has decreased by 15 bpm Incomplete left bundle branch block is now Present Criteria for Septal infarct are not Present Confirmed by KENN BILLINGSLEY M.D ([id number]) on 06/06/2022 9:57:10 PM ECG 12 lead [[id number]] Resulted: 06/06/22943, Result status: Preliminary result Ordering provider: Russ Milner MD 06/04/222154 Resulted by: Kenn Billingsley MD Accession number: [id number] Resulting lab: [facility] Component Value Reference Range Flag Lab Ventricular Rate EKG/Min 47 BPM -- -- Atrial Rate 47 BPM -- -- MT-Interval (MSEC) 228 ms -- -- QRS-Interval (MSEC) 116 ms -- -- QT-Interval (MSEC) 532 ms -- -- QTc 470 ms -- -- P [place] 39 degrees -- -- R [place] -33 degrees -- -- T [place] 105 degrees -- -- Diagnosis -- -- -- -- Result: Sinus bradycardia with 1st degree A-V block Left axis deviation Incomplete left bundle branch block Abnormal QRS-T angle, consider primary T wave abnormality Abnormal ECG When compared with ECG of 23-MAR-2017 00:14, MT interval has increased Incomplete left bundle branch block is now Present Criteria for Septal infarct are no longer Present ECG 12 lead [[id number]] Resulted: 10/17/22 0932, Result status: Preliminary result Ordering provider: Toyin Alberto MD 06/05/22 1448 Resulted by: Jess Bustos MD Accession number: [id number] Resulting lab: [facility] [employer] Component Value Reference Range Flag Lab Ventricular Rate EKG/Min 73 BPM -- -- Atrial Rate 73 BPM -- -- MT-Interval (MSEC) 184 ms -- -- QRS-Interval (MSEC) 106 ms -- -- QT-Interval (MSEC) 442 ms -- -- QTc 486 ms -- -- P [place] 49 degrees -- -- R [place] -33 degrees -- -- T [place] 87 degrees -- -- Diagnosis -- -- -- -- Result: Normal sinus rhythm Possible Left atrial enlargement Left axis deviation Septal infarct , age undetermined Abnormal ECG ECG 12 lead [[id number]] Resulted: 06/06/22 0909, Result status: Preliminary result Ordering provider: Russ Milner MD 06/04/222154 Resulted by: Kenn Billingsley MD Accession number: [id number] Resulting lab: [facility] Component Value Reference Range Flag Lab Ventricular Rate EKG/Min 47 BPM -- -- Atrial Rate 47 BPM -- -- MT-Interval (MSEC) 228 ms -- -- QRS-Interval (MSEC) 116 ms -- -- QT-Interval (MSEC) 532 ms -- -- QTc 470 ms -- -- P [place] 39 degrees -- -- R [place] -33 degrees -- -- T [place] 105 degrees -- -- Diagnosis -- -- -- -- Result: Sinus bradycardia with 1st degree A-V block Left axis deviation Incomplete left bundle branch block Abnormal QRS-T angle, consider primary T wave abnormality Abnormal ECG When compared with ECG of 23-MAR-2017 00:14, MT interval has increased Incomplete left bundle branch block is now Present Criteria for Septal infarct are no longer Present Testing Performed By Lab - Abbreviation Name Director Address Valid Date Range 24 - [facility] Unknown 03/28/170 - Present Progress Notes - Encounter Notes Notes from 06/27/22 through 06/29/22 Progress Notes by So Lawrence OT at 06/27/2022 9:37 AM Version 1 of 1 Author: So Lawrence OT Specialty: Occupational Therapy Author Type: Occupational Therapist Filed: 06/27/2022 11:01 AM Date of Service: 06/27/2022 9:37 AM Status: Signed Systems Analyst Engineer: So Lawrence OT (Occupational Therapist) Occupational Therapy [...] not assigned to this patient, please call [phone]. 06/27/22 0937 General Session Type Treatment OT [...] of Service: 06/27/2022 4:57 PM Status: Signed Systems Analyst Engineer: Carey East MD (Physician) Daily Progress Note Division of Hospital Medicine Name: Adelia Garvin Jr. Today: June 27, 2022 : 1970 Age: 51 y.o. male Admit: 06/04/2022 Bed: [id number] Subjective Chief complaint: CAD s/p PCI, T1DM, [...] 06/27/2022 0745 Gross per 24 hour Intake 43378 ml Output 85521 ml Net -1949 ml Physical Exam Constitutional: [...] transferred to the floor, improving. Atrial fibrillation ([facility]) ([facility]) Assessment & Plan Converted to NSR overnight on 06/24. CHADsVASc of 4 not on anticoagulation prior to admission. - cardiology consulted - recommended ongoing rate control - holding off on a/c with high risk for bleeding while on DAPT - reduced metop to 25mg BID in the setting of hypotension, HR 70s NSR Acute on chronic HFrEF (heart failure with reduced ejection fraction) ([facility]) Assessment & Plan C/b cardiogenic shock requiring impella in the setting of cath and AHRF 2/2 pulmonary edema, now resolved. TTE demonstrating recovered EF 65% with grade I diastolic dysfunction. - metop as above - continue low dose losartan 12.5mg daily, ok per nephro - volume management per PD ESRD (end stage renal disease) ([facility]) ([facility]) Assessment & Plan - Renal consulted, s/p CRRT in the ICU now back on PD. - Continue vitamins for renal bone mineral disease - continue phoslo Type 1 diabetes mellitus ([facility]) Assessment & Plan A1c well controlled on [...] PD * NSTEMI (non-ST elevated myocardial infarction) ([facility]) ([facility]) Assessment & Plan With recurrent chest pain [...] of Service: 06/27/2022 3:50 PM Status: Signed Systems Analyst Engineer: Arleen Andre MD (Physician) ASSESSMENT AND RECOMMENDATIONS ESRD: He is doing well on the current PD regimen. Ultrafilters approximately 9195-6377 ml/day. Continue current regimen Hypokalemia: Start Kcl [...] Type: Continuous Cycling Peritoneal Dialysis Machine Type: [employer] HomeChoice Pro Dianeal Solution: Dextrose 2.5% in 5000 mL (+ 7.5% last fill) Dwell Time (min): 77 min Drain Time (min): 39 min Initial Drain Volume (mL): 690 mL Last Fill Volume (mL): 785 mL Fill Volume In (mL): 03362 mL Effluent Volume Out (mL): 59383 ml Balance This Exchange (mL): 1944 mL [...] edema I/O last 2 completed shifts: In: 96055 [P.O.:440; Other:52753] Out: 28716 [Urine:300; Other:63170] I have reviewed current medications and the [...] Units Recent Labs Lab Units 06/27/22 0351 11/06/32206/24/22 0410 WBC K/cumm 3.8 4.1 4.3 HEMOGLOBIN [...] FERRITIN 2,062 (H) 06/07/2022 Arleen Andre MD environmental compliance officer Division of Nephrology Progress Notes by Frank Bowers MD at 06/28/2022 3:30 PM Version 1 of 1 Author: Frank Bowers MD Specialty: Internal Medicine Author Type: Physician Filed: 06/28/2022 3:30 PM Date of Service: 06/28/2022 3:30 PM Status: Signed Systems Analyst Engineer: Frank Bowers MD (Physician) Daily Progress Note Division of Hospital Medicine Name: Adelia Garvin Jr. Today: June 28, 2022 : 1970 Age: 51 y.o. male Admit: 06/04/2022 Bed: [id number] Subjective Chief complaint: NSTEMI Interval History: Pt [...] 06/28/2022 1300 Gross per 24 hour Intake 24852 ml Output 52448 ml Net -851 ml Physical Exam Constitutional: [...] * NSTEMI (non-ST elevated myocardial infarction) (CMS/HCC) ([facility]) Assessment & Plan With recurrent chest pain [...] been accepted ESRD (end stage renal disease) ([facility]) ([facility]) Assessment & Plan - Renal consulted, s/p CRRT in the ICU now back on PD. Tolerated well and nephrology following - Trialysis catheter removed - Continue vitamins for renal bone mineral disease. Type 1 diabetes mellitus ([facility]) Assessment & Plan A1c well controlled on [...] increase NPH 45u before PD Atrial fibrillation ([facility]) ([facility]) Assessment & Plan Converted to NSR overnight on 06/24. CHADsVASc of 4 not on anticoagulation prior to admission. - cardiology consulted - recommended ongoing rate control - holding off on a/c with high risk for bleeding while on DAPT - reduced metop to 25mg BID in the setting of hypotension, HR 70s NSR Acute on chronic HFrEF (heart failure with reduced ejection fraction) ([facility]) Assessment & Plan C/b cardiogenic shock requiring [...] and trend Hb. Acute hypoxemic respiratory failure ([facility]) Assessment & Plan Secondary to ACS and flash pulmonary edema, since resolved and extubated on 06/19. Patient passed barium swallow on 06/21. Progress Notes by Frank Bowers MD at 06/29/2022 10:12 AM Version 1 of 1 Author: Frank Bowers MD Specialty: Internal Medicine Author Type: Physician Filed: 06/29/2022 10:12 AM Date of Service: 06/29/2022 10:12 AM Status: Signed Systems Analyst Engineer: Frank Bowers MD (Physician) Daily Progress Note Division of Hospital Medicine Name: Adelia Garvin Jr. Today: June 29, 2022 : 1970 Age: 51 y.o. male Admit: 06/04/2022 Bed: [id number] Subjective Chief complaint: NSTEMI Interval History: Pt [...] 06/29/2022 0815 Gross per 24 hour Intake 08279 ml Output 82238 ml Net -664 ml Physical Exam Constitutional: [...] RN/ Notified POCT glucose Collection Time: 06/28/22 3:33 [...] Resolved. * NSTEMI (non-ST elevated myocardial infarction) ([facility]) ([facility]) Assessment & Plan With recurrent chest pain [...] rehab today ESRD (end stage renal disease) ([facility]) ([facility]) Assessment & Plan - Renal consulted, s/p [...] start of peritoneal dialysis session Atrial fibrillation (CMS/HCC) ([facility]) Assessment & Plan Converted to NSR overnight on 06/24. CHADsVASc of 4 not on anticoagulation prior to admission. - cardiology consulted - recommended ongoing rate control - holding off on a/c with high risk for bleeding while on DAPT - reduced metop to 25mg BID in the setting of hypotension, HR 70s NSR Acute on chronic HFrEF (heart failure with reduced ejection fraction) ([facility]) Assessment & Plan C/b cardiogenic shock requiring [...] of Service: 06/29/2022 10:13 AM Status: Signed Systems Analyst Engineer: Frank Bowers MD (Physician) Inpatient Discharge Summary BRIEF OVERVIEW Admitting Provider: Catherine Adams MD Discharge Provider: Frank Bowers MD Primary Care Physician at Discharge: Aditya Castro MD [phone] Admission Date: 06/04/2022 Discharge Date: 06/29/2022 Admission Location: [facility] Problems/Diagnoses: Principal Problem: NSTEMI (non-ST elevated myocardial infarction) ([facility]) ([facility]) Active Problems: Cardiogenic shock ([facility]) Type 1 diabetes mellitus ([facility]) ESRD (end stage renal disease) ([facility]) ([facility]) Acute hypoxemic respiratory failure ([facility]) Anemia Acute on chronic HFrEF (heart failure with reduced ejection fraction) ([facility]) Atrial fibrillation ([facility]) ([facility]) Resolved Problems: No resolved hospital problems. DETAILS OF HOSPITAL STAY Presenting Problem/History of Present Illness: As per Admission H&P AC), HTN, CAD s/p stent 04/06 and 3 stent 12/07, T1DM (insulin pump at home), ESRD on PD, HLD, GERD, hyperparathyroidism, DDD, OA, gout, BEN on CPAP initially presented to [facility] for n/v andchest pain, transferred to [facility] for LHC/PCI, now presenting to CCU s/p complex PCI with impella and intubated. At the OSH he presented with 3d generalized weakness, chills, ROONEY, n/v, chest pain relieved by sublingual ntg. His labs were notable for trop 1.0-->1.09-->0.729, BNP 21375. He had a CT CAP showing cholelithiasis [...] circumflex as optimal treatment, prompting transfer to [facility]. He arrived at [facility] 06/05. EKG showed sinus bradycardia, 1st deg [...] 06/22. * NSTEMI (non-ST elevated myocardial infarction) ([facility]) ([facility]) With interventions described above. Post-transfer and post-cath, [...] on discharge given pressure tolerance. Atrial fibrillation ([facility]) ([facility]) He was in atrial fibrillation on transfer [...] HFrEF (heart failure with reduced ejection fraction) ([facility]) He developed cardiogenic shock requiring impella in the setting of cath c/b AHRF 2/2 pulmonary edema. Post-cath, TTE demonstrated recovered EF 65% with grade I diastolic dysfunction. Volume was managed with CRRT in ICU, then by resumption of PD on the medical floor. In discussion with nephrology, low dose losartan was started for GDMT in addition to metoprolol. ESRD (end stage renal disease) ([facility]) ([facility]) Renal consulted on admission with history of ESRD on PD. While in ICU, temporary dialysis catheter was placed to facilitate CRRT for volume removal. Upon transfer to the floor, PD was continued and tolerated well. He was continued on his home vitamins for renal bone mineral disease and phoslo. Trialysis removed 06/25. Type 1 diabetes mellitus ([facility]) Prior to admission, his A1c was well [...] REMOVE PERC ARTERIAL VAD (IMPELLA), DIFFERENT SESSION [id number] Other Procedures: Pertinent Test Results: See hospital [...] Influenza, Quadrivalent, Split, Preservative Free, Intramuscular 06/04/22 [facility] SARS-CoV-2 Vaccination 11/04/20 [facility] SARS-CoV-2 Vaccination (12+ YRS) 09/21/21 Generated by [id number] at 06/29/22 11:31 AM Page ALING PROJECT ENGINEER * Assessment & Plan Note - Frank Bowers MD - 06/29/2022 10:12 AM SIGNALING PROJECT ENGINEER Associated Problem(s): Atrial fibrillation (CMS/HCC) (HCC) Converted to NSR overnight on 06/24. CHADsVASc of 4 not on anticoagulation prior to admission. - cardiology consulted - recommended ongoing rate control - holding off on a/c with high risk for bleeding while on DAPT - reduced metop to 25mg BID in the setting of hypotension, HR 70s NSR ALING PROJECT ENGINEER * Assessment & Plan Note - Frank Bowers MD - 06/29/2022 10:12 AM SIGNALING PROJECT ENGINEER Associated Problem(s): Acute on chronic HFrEF (heart failure with reduced ejection fraction) ([facility]) C/b cardiogenic shock requiring impella in the setting of cath and AHRF 2/2 pulmonary edema, now resolved. TTE demonstrating recovered EF 65% with grade I diastolic dysfunction. - metop as above - continue low dose losartan 12.5mg daily, ok per nephro. Tolerating well - volume management per PD ALING PROJECT ENGINEER * Assessment & Plan Note - Frank Bowers MD - 06/29/2022 10:12 AM SIGNALING PROJECT ENGINEER Associated Problem(s): Anemia Stable, likely 2/2 anemia from ESRD, no evidence of bleeding. Underwent CT c/a/p without internal hematoma. - Monitor and trend Hb. ALING PROJECT ENGINEER * Assessment & Plan Note - Frank Bowers MD - 06/29/2022 10:12 AM SIGNALING PROJECT ENGINEER Associated Problem(s): Acute hypoxemic respiratory failure (HCC) Secondary to ACS and flash pulmonary edema, since resolved and extubated on 06/19. Patient passed barium swallow on 06/21. ALING PROJECT ENGINEER * Assessment & Plan Note - Frank Bowers MD - 06/29/2022 10:12 AM SIGNALING PROJECT ENGINEER Associated Problem(s): ESRD (end stage renal disease) (CMS/HCC) (HCC) - Renal consulted, s/p CRRT in the ICU now back on PD. Tolerated well and nephrology following - Trialysis catheter removed - Continue vitamins for renal bone mineral disease. ALING PROJECT ENGINEER * Assessment & Plan Note - Frank Bowers MD - 06/29/2022 10:11 AM SIGNALING PROJECT ENGINEER Associated Problem(s): Type 1 diabetes mellitus (HCC) [...] units with start of peritoneal dialysis session ALING PROJECT ENGINEER * Assessment & Plan Note - Frank Bowers MD - 06/29/2022 10:11 AM SIGNALING PROJECT ENGINEER Associated Problem(s): Cardiogenic shock (HCC) Secondary to NSTEMI, s/p Impella since removed on 06/10. Resolved. ALING PROJECT ENGINEER * Assessment & Plan Note - Frank Bowers MD - 06/29/2022 10:11 AM SIGNALING PROJECT ENGINEER Associated Problem(s): NSTEMI (non-ST elevated myocardial infarction) [...] Pt overall improving, DC to rehab today ALING PROJECT ENGINEER * Subjective & Objective - Frank Bowers MD - 06/29/2022 10:10 AM SIGNALING PROJECT ENGINEER Daily Progress Note Division of Hospital Medicine Name: Adelia Garvin Jr. Today: June 29, 2022 : 1970 Age: 51 y.o. male Admit: 06/04/2022 Bed: [id number] Subjective Chief complaint: NSTEMI Interval History: Pt [...] 06/29/2022 0815 Gross per 24 hour Intake 17467 ml Output 07060 ml Net -664 ml Physical Exam Constitutional: [...] RN/ Notified POCT glucose Collection Time: 06/28/22 3:33 [...] controlled, some low 200 Negative covid test. ALING PROJECT ENGINEER * Plan of Care - [place] [...] to chair, discharge to inpatient rehab today ALING PROJECT ENGINEER * Summary of Treatment Recommendations Non-Billable - [...] yearly or sooner as indicated by your eyeglass lens cutter Pending results for primary service or primary care physician to follow up on: None at time of discharge Follow Up Plan: Follow up with endocrinology near his home 1-2 weeks after discharge to reassess glycemic management and adjust insulin pump settings as needed. ALING PROJECT ENGINEER * Plan of Care - Gucci Macedo, FANY - 06/29/2022 1:28 AM CST BEN Continue on NPPV ALING PROJECT ENGINEER * Consults, Subsequent - James Horvath MD - 06/28/2022 5:36 PM SIGNALING PROJECT ENGINEER NEPHROLOGY CONSULT SUBSEQUENT VISIT INTERVAL HISTORY: NAEO. [...] Date 06/27/22699 - 06/28/2265806/28/22699 - 06/29/2259 Shift [id number] 24 Hour Total 2318-9076 1434-1875 24 Hour Total INTAKE P.O. 400 400 Other 30638 33683 Shift Total(mL/kg) 87677(101.4) 33450(101.4) 400(3.3) 400(3.3) OUTPUT Urine(mL/kg/hr) 200(0.1) 200(0.1) 150 150 Other 08611 40346 Shift Total(mL/kg) 200(1.7) 96281(110.5) 45395(112.2) 150(1.2) 150(1.2) NET -200 -1101 -1301 250 [...] Fellow PGY-4 Consult 1 Service Contact (phone): [phone] After hours and weekends: please page [phone] Cosigned by Arleen Andre MD at 06/28/2022 8:35 PM SIGNALING PROJECT ENGINEER ALING PROJECT ENGINEER ALING PROJECT ENGINEER Associated attestation - Arleen Andre MD - 06/28/2022 8:35 PM SIGNALING PROJECT ENGINEER I saw and examined the patient on 06/28/2022. I have discussed the patient's management with the nephrology fellow/resident. I agree with the findings, assessment and plan of care as documented in thefellow's/resident's note. Additional history, findings, assessment and recommendations, if any, are outlined below. Arleen Andre MD environmental compliance officer Division of Nephrology * Subjective & Objective - Frank Bowers MD - 06/28/2022 3:21 PM SIGNALING PROJECT ENGINEER Daily Progress Note Division of Hospital Medicine Name: Adelia Garvin Jr. Today: June 28, 2022 : 1970 Age: 51 y.o. male Admit: 06/04/2022 Bed: [id number] Subjective Chief complaint: NSTEMI Interval History: Pt [...] 06/28/2022 1300 Gross per 24 hour Intake 68887 ml Output 95605 ml Net -851 ml Physical Exam Constitutional: [...] this written report and agrees with it. ALING PROJECT ENGINEER * Plan of Care - Elsie Gonzalez RN - 06/28/2022 3:16 PM CST Field Technical Specialist noted patient has been recommended for inpatient rehab by PT/OT. nurse manager met withthe patient at bedside to discuss recommendations by therapy and to work on a potential discharge disposition plan. Field Technical Specialist provided education to patient on inpt rehab facilities and the rehabilitation process.Patient reported he was interested in short term inpatient rehab. nurse manager explained to the patient the choices were limited due to his PD. Per patient request, CM sent referrals to inpatient rehab facilities near [facility]. Facilities in [place] unable to accept PD at this time. CM sent referrals to [facility]. [facility] is able to accept PD patient and they have beds available tomorrow. Per patient choice will transfer to [facility] tomorrow. [facility] intake coord and care team notified of patient choice. ALING PROJECT ENGINEER * Consults, Subsequent - Dora Delarosa NP - 06/28/2022 1:30 PM CST Endocrinology & Diabetes Progress Note Patient: Adelia Garvin Jr., 51 y.o. male (: 1970) Room: [place] [id number] ( ) LOS: 24 Adelia Garvin Jr. [...] There were no acute events overnight. Mr. Garivn reports his appetite is good today. I [...] agitation. 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, with detention use of insulin, complicated by ESRD on PD, CAD s/p PCI, CHF - HbA1c 7.4% - Uses Omnipod and Dexcom G6 at home, not currently on this- doesn't have the supplies -On significantly higher basal rates on pump at night due to peritoneal dialysis -home settings: Basal rate 0330 >>1.7 0800 >> 0.8 2000 >> 5.8 ICR1:6.5 ISF1:25 [id number] TIA 4 Over the previous 24 hours, [...] recommend decreasing the basal insulin dose from 2215-1500 today. We will continue to intensely monitor [...] ## Discharge Planning - Follow-up with home deblocker -- Dora Delarosa NP Endocrinology, Metabolism, & Lipid Research Contact Info: New Consults: [phone]) General Endocrine (Non-Diabetes): [phone] (Check 'Treatment Team' assignment for Diabetes 1 vs 2 vs 3) Diabetes 1: Diabetes Fellow: [phone] Diabetes 2: Dora Delarosa SECURITY OPERATIONS CENTER ANALYST: [phone] Diabetes 3: See Treatment Team Provider (or call Dora Delarosa, above) Diabetes After-Hours & Weekends: Diabetes Fellow ALING PROJECT ENGINEER * Plan of Care - Elsie Gonzalez RN - 06/28/2022 1:24 PM CST CM sent 5 more referrals in [facility] for inpt rehab- awaiting response from facility that can accept PD patients ALING PROJECT ENGINEER * Plan of Care - [place] [...] up to chair, monitor tele and vitals ALING PROJECT ENGINEER * Plan of Care - Sasha Leonard, LILIAN - 06/28/2022 9:33 AM CST Problem: Swallowing [...] on-going diet recs, safe swallow strategies, and RHIA POC, they verbalized understanding and agreement. ST to s/o. ALING PROJECT ENGINEER * Hospital Course - Carey East MD - 06/27/2022 9:31 PM SIGNALING PROJECT ENGINEER Adelia Garvin is 51 y.o. male with [...] 06/22. * NSTEMI (non-ST elevated myocardial infarction) ([facility]) ([facility]) With interventions described above. Post-transfer and post-cath, [...] DAPT and atorvastatin as well. Atrial fibrillation ([facility]) ([facility]) He was in atrial fibrillation on transfer [...] HFrEF (heart failure with reduced ejection fraction) ([facility]) He developed cardiogenic shock requiring impella in the setting of cath c/b AHRF 2/2 pulmonary edema. Post-cath, TTE demonstrated recovered EF 65% with grade I diastolic dysfunction. Volume was managed with CRRT in ICU, then by resumption of PD on the medical floor. In discussion with nephrology, low dose losartan was started for GDMT in addition to metoprolol. ESRD (end stage renal disease) ([facility]) ([facility]) Renal consulted on admission with history of ESRD on PD. While in ICU, temporary dialysis catheter was placed to facilitate CRRT for volume removal. Upon transfer to the floor, PD was continued and tolerated well. He was continued on his home vitamins for renal bone mineral disease and phoslo. Trialysis removed 06/25. Type 1 diabetes mellitus ([facility]) Prior to admission, his A1c was well [...] barium swallow on 06/21. Remained on RA. ALING PROJECT ENGINEER ALING PROJECT ENGINEER * ECIN Note - Elsie Gonzalez RN [...] 06/27/22 0700 - 06/28/22 0659 Total Total 3688-3583 7722-0612 4177-8746 Total 2542-2493 7854-1127 7486-5377 Total Intake (ml) 32406 40648 340 100 41907 74696 -- -- -- -- Output (ml) 33185 51100 300 -- 54863 40202 200 -- -- 200 Net (ml) -2404 [...] (Autopopulated from EMR) None found ............filed at 06/27/2022829 History of Falling 0 ............filed at 06/27/2022829 Secondary Diagnosis 15 ............filed at 06/27/2022829 Ambulatory Aids 15 ............filed at 06/27/2022829 Intravenous Therapy/Heparin/Saline Lock 20 ............filed at 06/27/2022829 Gait/Transferring 10 ............filed at 06/27/2022829 Mental Status 0 ............filed at 06/27/2022829 Torres Fall Risk Score 60 ............filed at 06/27/2022829 Vital Signs 06/26 0659 06/27 1326 Most Recent Temp (??C) 36.9 - 37.2 36.6 36.6 (97.9) 06/27 744 Pulse 62 - 80 74 - 76 74 06/27 1021 Resp 18 - 20 18 18 06/27 744 SpO2 (%) 94 - 99 95 - [...] Restraint R Wrist (NV) DISCONTINUED filed at 06/20/2022829 Soft Restraint L Wrist (NV) DISCONTINUED filed at 06/20/2022829 Default Flowsheet Data (most recent) Endurance Tests [...] LAST DOCUMENTED (most recent) OT Treatment - 06/27/2237 General Session Type Treatment OT Received On [...] to engage Activity Tolerance Activity Tolerance Comments CRYUS: Hard Other Comments Comments Patient presents with [...] Hematoma in the IJ Assessments Row Name 06/26/22202906/26/2225 06/25/221999 Wound Status [...] % 94 % Row Name 06/27/22 0047 06/26/22 20206/26/22 1529 06/26/22 0743 06/26/22 0320 Oxygen Therapy/Pulse [...] -- SpO2 -- 92 % 96 % ALING PROJECT ENGINEER * Consults, Subsequent - Dora Delarosa NP - 06/27/2022 1:13 PM CST Endocrinology & Diabetes Progress Note Patient: Adelia Garvin Jr., 51 y.o. male (: 1970) Room: [place] [id number] ( ) LOS: 23 Adelia Garvin Jr. [...] labs, imaging, and diagnostics independently reviewed in [facility] and commented on below. Lab Results Component [...] agitation. 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, with detention use of insulin, complicated by ESRD on PD, CAD s/p PCI, CHF - HbA1c 7.4% - Uses Omnipod and Dexcom G6 at home, not currently on this- doesn't have the supplies -On significantly higher basal rates on pump at night due to peritoneal dialysis -home settings: Basal rate 0330 >>1.7 0800 >> 0.8 2000 >> 5.8 ICR1:6.5 ISF1:25 [id number] TIA 4 Over the previous 24 hours, [...] ## Discharge Planning - Follow-up with home deblocker -- Dora Delarosa NP Endocrinology, Metabolism, & Lipid Research Contact Info: New Consults: [phone]) General Endocrine (Non-Diabetes): [phone] (Check 'Treatment Team' assignment for Diabetes 1 vs 2 vs 3) Diabetes 1: Diabetes Fellow: [phone] Diabetes 2: Dora Delarosa NP: [phone] Diabetes 3: See Treatment Team Provider (or call Dora Delarosa, above) Diabetes After-Hours & Weekends: Diabetes Fellow ALING PROJECT ENGINEER * Plan of Care - Adelita Self RN - 06/26/2022 3:00 PM CST Problem: Lack of Knowledge: Goal: Knowledge of disease or condition will improve Outcome: Progressing Goals: Clinical Goals for the Shift: up to chair Summary: Up to chair for about 2 hours. ALING PROJECT ENGINEER * Plan of Care - Gucci Macedo, CREDENTIALS SPECIALIST - 06/26/2022 1:28 AM CDT BEN Continue [...] 0659 06/25/22 07 - 06/26/22 0659 Shift 6011-4597 7549-9289 24 Hour Total 5015-1295 9205-0797 24 Hour Total INTAKE Other 38317 06079 Shift Total(mL/kg) 64149(101.9) 00645(101.9) OUTPUT Other 51535 06852 Shift Total(mL/kg) 00205(122) 82932(122) NET -2404 -2404 Weight (kg) 119 119.7 [...] Fellow PGY-4 Consult 1 Service Contact (phone): [phone] After hours and weekends: please page [phone] Cosigned by Miriam Driver MD at 06/28/2022 8:11 AM SIGNALING PROJECT ENGINEER ALING PROJECT ENGINEER Associated attestation - Miriam Driver MD - 06/28/2022 8:11 AM SIGNALING PROJECT ENGINEER I have seen and examined the patient on 06/25/22. I agree with the findings and plan of care as documented in the nephrology fellow's note. Miriam Driver MD Paranormal Investigator Division of Nephrology * Plan of Care - Adelita Self RN - 06/25/2022 10:00 AM CDT Problem: Health Behavior: Goal: Understanding of discharge needs will improve Outcome: Progressing Goals: Clinical Goals for the Shift: up to chair Summary: Up to chair for short period this am. * Plan of Care - Wandy Garay, CREDENTIALS SPECIALIST - 06/25/2022 4:45 AM CDT NPPV Situation: [...] 0659 06/24/22 07 - 06/25/22 0659 Shift 3312-6345 5764-1485 24 Hour Total 2408-3390 6962-1210 24 Hour Total INTAKE Other 48862 80708 IV Piggyback 250 250 Shift Total(mL/kg) 250(2.1) 62311(101.5) 01585(103.6) OUTPUT Urine(mL/kg/hr) 250(0.2) 250(0.1) Emesis/NG output 0 0 Other 13284 48371 Stool 0 0 Shift Total(mL/kg) 90790(106.5) 07003(106.5) NET 250 -168 -272 Weight (kg) 119.9 119.9 119.9 119 119 [...] Fellow PGY-4 Consult 1 Service Contact (phone): [phone] After hours and weekends: please page [phone] Cosigned by Miriam Driver MD at 06/24/2022 8:25 PM CDT Associated attestation - Miriam Driver MD - 06/24/2022 8:25 PM CDT I have seen and examined the patient on 06/24/22. I agree with the findings and plan of care as documented in the nephrology fellow's note. Agree with endocrinology. Continue PD settings. Miriam Driver MD Paranormal Investigator Division of Nephrology * Plan of Care [...] hygiene prior to po Specialty Instructions/Modifications: alert RHIA if pt coughing with meals RHIA noted pt was advanced to regular diet [...] updated diet recs, safe swallow strategies, and RHIA POC, they verbalized understanding and agreement. ST will briefly continue to follow. * Consults, Subsequent - Dora Delarosa NP - 06/24/2022 12:29 PM CDT Endocrinology & Diabetes Progress Note Patient: Adelia Garvin Jr., 51 y.o. male (: 1970) Room: [place] [address] ( ) LOS: 20 Adelia Garvin Jr. [...] agitation. 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, with detention use of insulin, complicated by ESRD on PD, CAD s/p PCI, CHF - HbA1c 7.4% - Uses Omnipod and Dexcom G6 at home, not currently on this- doesn't have the supplies -On significantly higher basal rates on pump at night due to peritoneal dialysis -home settings: Basal rate 0330 >>1.7 0800 >> 0.8 2000 >> 5.8 ICR1:6.5 ISF1:25 [id number] TIA 4 Over the previous 24 hours, [...] ## Discharge Planning - Follow-up with home deblocker -- Dora Delarosa NP Endocrinology, Metabolism, & Lipid Research Contact Info: New Consults: [phone]) General Endocrine (Non-Diabetes): [phone] (Check 'Treatment Team' assignment for Diabetes 1 vs 2 vs 3) Diabetes 1: Diabetes Fellow: [phone] Diabetes 2: Dora Delarosa SECURITY OPERATIONS CENTER ANALYST: [phone] Diabetes 3: See Treatment Team Provider (or [...] assistance, please check the treatment team in [facility] for the assigned porter sample case or contact the weekend Case Management phone [...] 06/24/2022 0536 Gross per 24 hour Intake 19641 ml Output 20236 ml Net -347 ml Physical Exam: General: [...] ESRD on PD who was transferred to [facility] for an impella-supported complex PCI on 06/07/22 [...] us if questions arise. Will Villavicencio MD Experimental Plastics Fabricator 11:36 AM 06/24/22 Cosigned by Musa Fernando MD at 06/25/2022 9:04 PM CDT Associated attestation - Musa Fernando MD - 06/25/2022 9:04 PM CDT 06/24/2022 I have personally seen and examined this pt with resident/Fellow/SECURITY OPERATIONS CENTER ANALYST . I have reviewed History/Physical exam and plan for management. I agree with it . Musa Fernando M.D., Gerry. mural painter [employer] [facility]. [place] This note contains information and [...] about verbage above please contact me at [phone]. . * Plan of Care - [place] [...] 06/23/22 0606/23/22 07 - 06/24/22 0659 Shift 5147-2160 24 Hour Total 2650-8906 5214-3250 24 Hour Total INTAKE Other 97295 22006 IV Piggyback 250 250 Shift Total(mL/kg) 46837(101.2) 69188(101.2) 250(2.1) 250(2.1) OUTPUT Urine(mL/kg/hr) 450 450 Other 19281 95252 Shift Total(mL/kg) 32682(122.6) 15922(122.6) [facility] -257 -2570 250 250 Weight (kg) 120.5 120.5 119.9 [...] Fellow PGY-4 Consult 1 Service Contact (phone): [phone] After hours and weekends: please page [phone] Cosigned by Miriam Driver MD at 06/23/2022 8:48 PM CDT Associated attestation - Miriam Driver MD - 06/23/2022 8:48 PM CDT I have seen and examined the patient on 06/23/22. I agree with the findings and plan of care as documented in the nephrology fellow's note. Miriam Driver MD Paranormal Investigator Division of Nephrology * Assessment & Plan [...] dc tomorrow as pt has been accepted ALING PROJECT ENGINEER ALING PROJECT ENGINEER * Assessment & Plan Note - Frank [...] the setting of hypotension, HR 70s NSR ALING PROJECT ENGINEER * Assessment & Plan Note - Frank Bowers MD - 06/23/2022 4:47 PM CDT Associated Problem(s): Acute on chronic HFrEF (heart failure with reduced ejection fraction) ([facility]) C/b cardiogenic shock requiring impella in the setting of cath and AHRF 2/2 pulmonary edema, now resolved. TTE demonstrating recovered EF 65% with grade I diastolic dysfunction. - metop as above - continue low dose losartan 12.5mg daily, ok per nephro. Tolerating well - volume management per PD ALING PROJECT ENGINEER * Assessment & Plan Note - Frank Bowers MD - 06/23/2022 4:47 PM CDT Associated Problem(s): ESRD (end stage renal disease) ([facility]) ([facility]) - Renal consulted, s/p CRRT in the ICU now back on PD. Tolerated well and nephrology following - Trialysis catheter removed - Continue vitamins for renal bone mineral disease. ALING PROJECT ENGINEER * Assessment & Plan Note - Carey [...] resistant SSI increase NPH 45u before PD ALING PROJECT ENGINEER * Consults, Subsequent - Dora Delarosa NP - 06/23/2022 1:48 PM CDT Endocrinology & Diabetes Progress Note Patient: Adelia Garvin Jr., 51 y.o. male (: 1970) Room: [place] [address] [address] ( ) LOS: 19 Adelia Garvin Jr. [...] agitation. 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, with detention use of insulin, complicated by ESRD on PD, CAD s/p PCI, CHF - HbA1c 7.4% - Uses Omnipod and Dexcom G6 at home, not currently on this- doesn't have the supplies -On significantly higher basal rates on pump at night due to peritoneal dialysis -home settings: Basal rate 0330 >>1.7 0800 >> 0.8 2000 >> 5.8 ICR1:6.5 ISF1:25 [id number] TIA 4 Over the previous 24 hours, [...] ## Discharge Planning - Follow-up with home deblocker -- Dora Delarosa NP Endocrinology, Metabolism, & Lipid Research Contact Info: New Consults: [phone]) General Endocrine (Non-Diabetes): [phone] (Check 'Treatment Team' assignment for Diabetes 1 vs 2 vs 3) Diabetes 1: Diabetes Fellow: [phone] Diabetes 2: Dora Delarosa NP: [phone] Diabetes 3: See Treatment Team Provider (or [...] Skin: No rash or bruises Date 06/21/22 1900 - 06/22/22 0659 06/22/22 0700 - 06/23/22 0659 Shift 2492-9489 24 Hour Total 4040-0869 5970-8167 24 Hour Total INTAKE I.V.(mL/kg) 133.2(1.1) Other 52246 14146 NG/GT 100 Shift Total(mL/kg) 76062(93.8) 96706.2(95.7) OUTPUT Urine(mL/kg/hr) 450 450 Emesis/NG output 0 Other 27866 66413 Shift Total(mL/kg) 20437(108.4) 20300(108.4) 450(3.7) 450(3.7) NET -1759 -1525.8 -450 -450 Weight (kg) 120.5 120.5 120.5 120.5 120.5 LABORATORY DATA: Recent Labs Lab Units 06/22/22 1521 06/21/22 2155 06/21/22 1723 WBC K/cumm 4.9 5.9 6.5 [...] Fellow PGY-4 Consult 1 Service Contact (phone): [phone] After hours and weekends: please page [phone] Cosigned by Miriam Driver MD at 06/23/2022 11:57 AM CDT Associated attestation - Miriam Driver MD - 06/23/2022 11:57 AM CDT I have seen and examined the patient on 06/22/22. I agree with the findings and plan of care as documented in the nephrology fellow's note. Miriam Driver MD Paranormal Investigator Division of Nephrology * Assessment & Plan Note - Luiz Lewis DO - 06/22/2022 8:21 PM CDT Associated Problem(s): Cardiogenic shock (HCC) -Secondary to NSTEMI, s/p Impella since removed on 06/10. * Assessment & Plan Note - Luiz Lewis DO - 06/22/2022 8:20 PM CDT Associated Problem(s): NSTEMI (non-ST elevated myocardial infarction) (CMS/HCC) ([facility]) -Patient with multiple risk factors, s/p complex PCI to LCx and OM bifurcation with MARIELLA. -Continue DAPT with aspirin, Plavix and atorvastatin. * Assessment & Plan Note - Luiz Lewis DO - 06/22/2022 8:18 PM CDT Associated Problem(s): Atrial fibrillation (CMS/HCC) ([facility]) -Currently rated controlled with metoprolol, CHADsVASc of 4 not on anticoagulation prior to admission. -Follow cardiology for initiation of AC. * Assessment & Plan Note - Luiz Lewis DO - 06/22/2022 8:16 PM CDT Associated Problem(s): Acute on chronic HFrEF (heart failure with reduced ejection fraction) ([facility]) -With acute exacerbation complicated by pulmonary edema since resolved. -Repeat TTE following Impella removal showed recovered EF of 65% with grade I diastolic dysfunction. -Continue metoprolol tartrate, start GDMT per cardiology. * Assessment & Plan Note - Luiz Lewis DO - 06/22/2022 8:15 PM CDT Associated Problem(s): ESRD (end stage renal disease) (CMS/HCC) ([facility]) -Renal consulted, s/p CRRT in the ICU [...] for n/v and chest pain, transferred to [facility] for LHC/PCI, who presented to CCU s/p complex PCI with impella and intubated. Now extubated, tolerating PO intake, on home PD. Arrived at [facility] from [facility] on 06/05. EKG showed sinus [...] Elsie of the CREU service. QUESTIONS? Call [phone] * Subjective & Objective - Luiz Lewis, [...] at 06/22/20221944 Gross per 24 hour Intake 77874 ml Output 94324 ml Net -2209 ml Constitutional - chronically [...] made/in place: 51 yo male transferred to [facility] ICU for complex PCI with impella.Unable to [...] Patient and/or family are agreeable with plan. nurse manager will continue to follow and assist with discharge planning as needed. If any further discharge needs arise, please contact the covering porter sample case. Rossi Hay RN * Consults, Subsequent - Dora Delarosa NP - 06/22/2022 12:39 PM CDT Endocrinology & Diabetes Progress Note Patient: Adelia Garvin Jr., 51 y.o. male (: 1970) Room: [place] [address] [address] ( ) LOS: 18 Adelia Garvin Jr. [...] night. Diet: Adult Diet Restricted; [facility] Consistent Carbohydrate; Renal Over the [...] agitation. 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 (Check 'Treatment Team' assignment for Diabetes 1 vs 2 vs 3) Diabetes 1: Diabetes Fellow: [phone] Diabetes 2: Dora Delarosa NP: [phone] Diabetes 3: See Treatment Team Provider (or call Dora Delarosa, above) Diabetes After-Hours & Weekends: Diabetes Fellow * Plan of Care - Jersey Castano FANY - 06/22/2022 1:10 AM CDT Plan [...] 30 degrees Pulse: 98 101 107 Resp: Temp: TempSrc: SpO2: 94% 95% 91% Weight: [...] 0659 06/21/22 07 - 06/22/22 0659 Shift 8020-4660 7214-6437 24 Hour Total 5825-3191 1390-6868 24 Hour Total INTAKE I.V.(mL/kg) 225(1.8) 399.6(3.4) [...] discussed with my attending, Dr. Driver 06/21/22 Jamse Horvath MD Nephrology Fellow PGY-4 Consult 1 Service Contact (phone): [phone] After hours and weekends: please page [phone] Cosigned by Miriam Driver MD at 07/04/2022 10:00 AM SIGNALING PROJECT ENGINEER ALING PROJECT ENGINEER Associated attestation - Miriam Driver MD - 07/04/2022 10:00 AM SIGNALING PROJECT ENGINEER I have seen and examined the patient on 06/21/22. I agree with the findings and plan of care as documented in the nephrology Fellow's note. Miriam Driver MD Paranormal Investigator Division of Nephrology * Consults, Subsequent - Dora Delarosa NP - 06/21/2022 1:09 PM CDT Endocrinology & Diabetes Progress Note Patient: Adelia Garvin Jr., 51 y.o. male (: 1970) Room: [place] [address] ( ) LOS: 17 Adelia Garvin Jr. [...] agitation. 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, with detention use of insulin, complicated by ESRD on PD, CAD s/p PCI, CHF - HbA1c 7.4% - Uses Omnipod and Dexcom G6 at home, not currently on this- doesn't have the supplies -On significantly higher basal rates on pump at night due to peritoneal dialysis -home settings: Basal rate 0330 >>1.7 0800 >> 0.8 2000 >> 5.8 ICR1:6.5 ISF1:25 [id number] TIA 4 Over the previous 24 hours, [...] ## Discharge Planning - Follow-up with home deblocker -- Dora Delarosa NP Endocrinology, Metabolism, & Lipid Research Contact Info: New Consults: [phone]) General Endocrine (Non-Diabetes): [phone] (Check 'Treatment Team' assignment for Diabetes 1 vs 2 vs 3) Diabetes 1: Diabetes Fellow: [phone] Diabetes 2: Dora Delarosa SECURITY OPERATIONS CENTER ANALYST: [phone] Diabetes 3: See Treatment Team Provider (or [...] dialysis nursing of the conversation. I am fabrication lead tonight, please do not hesitate to page if plans change. Chandrakant Nava MD Nephrology Fellow, PGY-4 Night Service [phone]. * Consults, Subsequent - Carol Sanchez MD - 06/20/2022 1:59 PM CDT Endocrinology & Diabetes Progress Note Patient: Adelia Garvin Jr., 51 y.o. male (: 1970) Room: [place] [address] [address] ( ) LOS: 16 Adelia Garvin Jr. is a 51 y.o. male with PMHx CHF (EF 50% in 2017), atrial fibrillation not on OAC, HTN/HLD, CAD s/p PCI, ESRD on PD, hyperparathyroidism presenting with weakness, N/V, diarrhea and chest pain. He is scheduled for [facility] on 06/06. 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, complicated by ESRD on PD, CAD s/p PCI, CHF - HbA1c 7.4% - Uses Omnipod and Dexcom G6 at home, not currently on this- doesn't have the supplies -On significantly higher basal rates on pump at night due to peritoneal dialysis -home settings: Basal rate 0330 >>1.7 0800 >> 0.8 2000 >> 5.8 ICR1:6.5 ISF1:25 [id number] TIA 4 High insulin requirements in setting [...] ## Discharge Planning - Follow-up with home deblocker -- Carol Sanchez MD Endocrinology, Metabolism, & Lipid Research Contact Info: New Consults: [phone]) General Endocrine (Non-Diabetes): [phone] (Check 'Treatment Team' assignment for Diabetes 1 vs 2 vs 3) Diabetes 1: Diabetes Fellow: [phone] Diabetes 2: Dora Delarosa SECURITY OPERATIONS CENTER ANALYST: [phone] Diabetes 3: See Treatment Team Provider (or call Dora Delarosa, above) Diabetes After-Hours & Weekends: Diabetes Fellow * Plan of Care - Milly Cooper RN - 06/20/2022 12:41 PM CDT Rounds with MD, porter sample case, social work, & charge nurse Medical chart [...] Patient and family are agreeable with plan. nurse manager will continue to follow and assist [...] [I.V.:1068.1; Blood:325; NG/GT:30; IV Piggyback:100] Out: 2775 [Other:4805] I have reviewed current medications and the [...] Labs Lab Units 06/20/22 0824 06/20/22 0025 06/19/22 2325 06/19/22 2054 06/19/22 0909 WBC K/cumm 8.3 -- -- 8.4 4.9 HEMOGLOBIN g/dL 6.6* 6.2* 6.2* 6.8* 9.9* PLATELETS K/cumm 271 -- -- 255 237 Recent Labs Lab Units 06/20/22 0806/19/22205306/19/22 0909 06/18/22224906/18/2285106/17/22211606/17/2280106/16/22205106/14/22 0816 06/13/22 2249 SODIUM mmol/L 140 140 [...] eventually back to PD Miriam Driver MD Paranormal Investigator Division of Nephrology * Consults, Subsequent - [...] AM Result Value Ref Range Product code N3732B20 Unit Number [id number] Product Blood Type APOS Dispense Status ISSUED [...] AM Result Value Ref Range Product code H8370F64 Unit Number [id number] Product Blood Type APOS Dispense Status RETURNED [...] not require specific follow up. Please call fabrication lead pulmonary consult fellow with additional questions or [...] findings: I/O last 2 completed shifts: In: 43170.4 [I.V.:1014.4; Other:35306; NG/GT:190; IV Piggyback:420] Out: 05473 [Other:57594] I have reviewed current medications and the [...] 93% I/O last 2 completed shifts: In: 34791.4 [I.V.:1014.4; Other:25955; NG/GT:190; IV Piggyback:420] Out: 81454 [Other:87747] I/O this shift: In: 480.2 [I.V.:480.2] Out: [...] no edema/infiltrates * Plan of Care - Brandon, Robert Freeman RN - 06/19/2022 1:34 PM CDT Goals: [...] 0.9% I/O last 2 completed shifts: In: 97673.3 [I.V.:1388.3; Other:92373; NG/GT:90; IV Piggyback:110] Out: 90333 [Other:73772; Stool:170] Objective Vitals: Vitals: 06/18/22 1508 BP: [...] Pulmonary will continue to follow. Please call fabrication lead pulmonary consult fellow with additional questions or [...] decrease Outcome: Progressing * Post-Procedure Note - Arci Cordova MD - 06/18/2022 12:47 PM CDT Radiology Brief Post Procedure Note Attending: Dr Payam Allison Administrative Underwriter: Dr. Aric Whitlock Sedation/Anesthesia: Local Pre-Op/Pre-Procedure Diagnosis: [...] on ventilator. PERRL. Date 06/17/22 07 - 06/18/22 0659 06/18/22 07 - 06/19/22 0659 Shift 9831-5874 9279-5742 24 Hour Total 2325-5125 2472-4698 24 Hour Total INTAKE I.V.(mL/kg) 953(7.3) 435.3(3.3) 1388.3(10.6) 189(1.4) 189(1.4) Other 7498 7483 26547 88530 25004 NG/GT 90 90 160 160 IV Piggyback 110 110 Shift Total(mL/kg) 8561(65.8) 8008.3(61.1) 96565.3(126.4) 47085(94.3) 79249(94.3) OUTPUT Urine(mL/kg/hr) 0(0) 0(0) Other 9865 7946 54576 41189 98489 Stool 170 170 Shift Total(mL/kg) 9865(75.8) 5754(43.9) 80626(119.1) 70849(115.6) 13782(115.6) NET -1304 2254.3 950.3 -2790 -2790 Weight (kg) 130.1 131.1 131.1 131.1 131.1 131.1 LABORATORY DATA: Recent Labs Lab Units 06/18/22 0852 06/17/22223006/17/22211606/17/22 0802 WBC K/cumm 8.9 -- 7.7 8.5 HEMOGLOBIN g/dL 8.8* 7.9* 6.2* 7.9* PLATELETS K/cumm 283 -- 300 262 Recent Labs Lab Units 06/18/22 0852 06/17/22211606/17/22 0802 06/16/22205106/16/22 0754 06/15/22205006/14/22 0816 06/13/22 2249 SODIUM mmol/L [...] Fellow PGY-4 Consult 1 Service Contact (phone): [phone] After hours and weekends: please page [phone] Cosigned by Miriam Driver MD at 06/18/2022 7:03 PM CDT Associated attestation - Miriam Driver MD - 06/18/2022 7:03 PM CDT I have seen and examined the patient on 06/18/2022. I agree with the findings and plan of care as documented in the nephrology Fellow's note. Miriam Driver MD Paranormal Investigator Division of Nephrology * Pre-Procedure Note - [...] (HCC) Diabetes mellitus type I ([facility]) Dialysis patient ([facility]) ([facility]) ESRD on dialysis ([facility]) ([facility]) GERD (gastroesophageal reflux disease) Hyperlipidemia [...] Horvath MD, New Bag at 06/18/22 0156 Dianeal low calcium-dextrose 2.5 % 5,000 mL [...] mg, 10 mg, feeding tube, Daily, Marcelina Pickard, ROBERTO, 10 mg at 06/18/22 0948 fentaNYL (SUBLIMAZE) bolus from bag 50 mcg, 50 mcg, intravenous, Q15 Min PRN, Marcelina Pickard, ROBERTO, 50 mcg at 06/17/22 2323 fentaNYL (SUBLIMAZE) [...] unit/mL injection 40 Units, 40 Units, subcutaneous, QAMPeter Shangnon Chen, MD [Held by Provider] insulin [...] injection 40 mg, 40 mg, intravenous, BID, [place] TiburonMarcelina, ROBERTO, 40 mg at 06/18/22 0948 phenoL (CHLORASEPTIC) 1.4 % oral spray 1 spray, 1 spray, mouth/throat, Q2H PRN, Nadia Torres MD polyethylene glycol (MIRALAX) packet 17 g, 17 g, feeding tube, Daily PRN, Marcelina Pickard, ROBERTO polyethylene glycol (MIRALAX) packet 17 g, 17 g, feeding tube, BID, [place] TiburonMarcelina, ROBERTO, 17 gat 06/18/22 0947 polyvinyl alcohol-povidone (REFRESH [...] syrup 8.8 mg, 8.8 mg, oral, Nightly, Meme Castro MD, 8.8 mg at 06/16/22 2110 sodium [...] all other systems are negative Vitals: Vitals: 06/18/22926 BP: Pulse: 107 Resp: Temp: SpO2: 93% Pertinent Labs: Recent Labs Lab Units 06/18/2285106/17/22223006/17/22211606/17/22 08 WBC K/cumm 8.9 -- 7.7 8.5 HEMOGLOBIN g/dL 8.8* 7.9* 6.2* 7.9* HEMATOCRIT % 27.1* 24.0* 19.1* 24.6* PLATELETS K/cumm 283 -- 300 262 Recent Labs Lab Units 06/18/2285106/17/22211606/17/22 0802 SODIUM mmol/L 143 142 140 POTASSIUM [...] been discussed with the patient and/or their franchise sales representative. All questions answered and they agree to proceed. * This addendum was created to correct the sedation plan. Patient is already intubated and sedated.We will continue with current sedation. * Plan of Care - Jersey Castano, CREDENTIALS SPECIALIST - 06/18/2022 12:59 AM CDT Mechanical Ventilation [...] 06/16/22699 - 06/17/2265806/17/22699 - 06/18/22 0659 Shift 2410-8074 8524-8330 24 Hour Total 4261-1494 5578-7707 24 Hour Total INTAKE I.V.(mL/kg) 856.1(6.8) 544.4(4.3) [...] Fellow PGY-4 Consult 1 Service Contact (phone): [phone] After hours and weekends: please page [phone] Cosigned by Miriam Driver MD at 06/17/2022 7:02 PM CDT Associated attestation - Miriam Driver MD - 06/17/2022 7:02 PM CDT I have seen and examined the patient on 06/17/2022. I agree with the findings and plan of care as documented in the nephrology Fellow's note. Miriam Driver MD Paranormal Investigator Division of Nephrology * Consults, Subsequent - [...] Pulmonary will continue to follow. Please call fabrication lead pulmonary consult fellow with additional questions or [...] Jr., 51 y.o. male (: 1970) Room: [place] [address]/[id number] ( ) LOS: 13 Adelia Garvin Jr. is a 51 y.o. male with PMHx CHF (EF 50% in 2017), atrial fibrillation not on OAC, HTN/HLD, CAD s/p PCI, ESRD on PD, hyperparathyroidism presenting with weakness, N/V, diarrhea and chest pain. He is scheduled for [facility] on 06/06. 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, with detention use of insulin, complicated by ESRD on PD, CAD s/p PCI, CHF - HbA1c 7.4% - Uses Omnipod and Dexcom G6 at home, not currently on this- doesn't have the supplies -On significantly higher basal rates on pump at night due to peritoneal dialysis -home settings: Basal rate 0330 >>1.7 0800 >> 0.8 2000 >> 5.8 ICR1:6.5 ISF1:25 [id number] TIA 4 High insulin requirements in setting [...] ## Discharge Planning - Follow-up with home deblocker -- Delmar Longo MD PhD Endocrinology, Metabolism, & Lipid Research Contact Info: New Consults: [phone]) General Endocrine (Non-Diabetes): [phone] (Check 'Treatment Team' assignment for Diabetes 1 vs 2 vs 3) Diabetes 1: Diabetes Fellow: [phone] Diabetes 2: Dora Delarosa, SECURITY OPERATIONS CENTER ANALYST: [phone] Diabetes 3: See Treatment Team Provider (or call Dora Delarosa, above) Diabetes After-Hours & Weekends: Diabetes Fellow * Plan of Care - Jersey Castano, CREDENTIALS SPECIALIST - 06/17/2022 12:49 AM CDT Mechanical Ventilation [...] bruises Neuro: Sedated on ventilator. PERRL. Date 06/15/22699 - 06/16/22 0606/16/22699 - 06/17/22 0659 Shift 4622-2553 3390-7172 24 Hour Total 7065-3000 6094-6512 24 Hour Total INTAKE I.V.(mL/kg) 624.4(5.1) 669(5.4) 1293.4(10.3) 729.7(5.8) 729.7(5.8) Other 1000 88781 77067 NG/GT 275 275 100 100 Shift Total(mL/kg) 1899.4(15.4) 62786(102.8) 86298.4(118) 829.7(6.6) 829.7(6.6) OUTPUT Urine(mL/kg/hr) 0(0) 0(0) 0(0) 0 0 Other 90827 08276 Shift Total(mL/kg) 0(0) 06648(96.7) 69438(96.7) 0(0) 0(0) NET 1899.4 768 2667.4 829.7 [...] heparin, 0-33 Units/kg/hr, Last Rate: 10.5 Units/kg/hr (10/27/22 1752) midazolam, 0-12 mg/hr, Last Rate: 0.5 [...] Fellow PGY-4 Consult 1 Service Contact (phone): [phone] After hours and weekends: please page [phone] Cosigned by Miriam Driver MD at 06/16/2022 [...] now due to hyperglycemia. Miriam Driver MD Paranormal Investigator Division of Nephrology * Pre-Procedure Note - [...] been closed and the order cancelled in [facility]. Thank you for the opportunity to participate [...] ramelteon I/O last 2 completed shifts: In: 29583.4 [I.V.:1293.4; Other:73094; NG/GT:275] Out: 99314 [Other:72799] Objective Vitals: Vitals: 06/16/22 1200 BP: Pulse: 81 Resp: 22 Temp: 36.9 [...] Pulmonary will continue to follow. Please call fabrication lead pulmonary consult fellow with additional questions or [...] Jr., 51 y.o. male (: 1970) Room: [place] [address]/[place] [address] ( ) LOS: 12 Adelia Garvin Jr. is a 51 y.o. male with PMHx CHF (EF 50% in 2017), atrial fibrillation not on OAC, HTN/HLD, CAD s/p PCI, ESRD on PD, hyperparathyroidism presenting with weakness, N/V, diarrhea and chest pain. He is scheduled for [facility] on 06/06. 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, with detention use of insulin, complicated by ESRD on PD, CAD s/p PCI, CHF - HbA1c 7.4% - Uses Omnipod and Dexcom G6 at home, not currently on this- doesn't have the supplies -On significantly higher basal rates on pump at night due to peritoneal dialysis -home settings: Basal rate 0330 >>1.7 0800 >> 0.8 2000 >> 5.8 ICR1:6.5 ISF1:25 [id number] TIA 4 Currently on TF Glucerna 1.5 ( CHO 133) Recommendations: - please increase Lantus to 40 units qAM - Humalog 10 units Q4hrs - NPH 15 units at the beginning of PD session - Resistant correctional Humalog q4 hrs - POC glucoses q4hrs Discharge recommendations: - TBD ## Discharge Planning - Follow-up with home deblocker -- Kellee Magallanes MD Endocrinology, Metabolism, & Lipid Research Contact Info: New Consults: [phone]) General Endocrine (Non-Diabetes): [phone] (Check 'Treatment Team' assignment for Diabetes 1 vs 2 vs 3) Diabetes 1: Diabetes Fellow: [phone] Diabetes 2: Dora Delarosa, SECURITY OPERATIONS CENTER ANALYST: [phone] Diabetes 3: See Treatment Team Provider (or [...] visit to the patient. Bryce Langley MD, [facility] Paranormal Investigatorenvironmental compliance officer Division of Endocrinology, Metabolism & Lipid Research [...] * Plan of Care - Juanito Hernandez, FANY - 06/15/2022 10:13 PM CDT Patient was [...] bruises Neuro: Sedated on ventilator. PERRL. Date 06/14/22 07 - 06/15/22 0659 06/15/22 0700 - 06/16/22 0659 Shift 7748-1676 6623-9674 24 Hour Total 7742-0107 5730-9873 24 Hour Total INTAKE I.V.(mL/kg) 520.5(4) 498.9(4.1) 1019.4(8.3) 624.4(5.1) 624.4(5.1) NG/GT 109 289 2469 275 275 Shift Total(mL/kg) 905.5(7) 1278.9(10.4) 2184.4(17.8) 899.4(7.3) 899.4(7.3) OUTPUT Urine(mL/kg/hr) 8(0) 0(0) 8(0) 0 0 Other 2248 695 2943 Stool 160 160 Shift Total(mL/kg) 2256(17.5) 855(7) 3111(25.3) 0(0) 0(0) NET -1350.5 423.9 -926.6 899.4 899.4 Weight (kg) 128.8 123 123 123 123 123 LABORATORY DATA: Recent Labs Lab Units 06/15/22 0806/14/22194006/14/22 0816 WBC K/cumm 13.2* 15.0* 15.7* HEMOGLOBIN g/dL 7.7* 8.3* 8.3* PLATELETS K/cumm 228 218 217 Recent Labs Lab Units 06/15/22 0806/14/22194006/14/22 0816 06/13/22 22406/13/22201606/13/22 0933 06/12/22 2047 SODIUM mmol/L 134* 138 [...] Fellow PGY-4 Consult 1 Service Contact (phone): [phone] After hours and weekends: please page [phone] Cosigned by Miriam Driver MD at 06/15/2022 7:33 PM CDT Associated attestation - Miriam Driver MD - 06/15/2022 7:33 PM CDT I have seen and examined the patient on 06/15/2022. I agree with the findings and plan of care as documented in the nephrology Fellow's note. Miriam Driver MD Paranormal Investigator Division of Nephrology * Plan of Care [...] Outcome: Progressing * Plan of Gayathri - Rachel Masters RN - 06/14/2022 6:45 [...] 06/14/2022 2:12 PM CDT Rounds with MD, porter sample case, social work, & charge nurse Medical chart [...] Patient and family are agreeable with plan. nurse manager will continue to follow and assist with discharge planning as needed * Consults, Subsequent - Miriam Driver MD - 06/14/2022 1:58 PM CDT Nephrology SLED/CRRT Procedure Note Date of Service: 06/14/2022 I saw and evaluated the patient during CRRT. Indication for CREDENTIALS SPECIALIST: ESRD Dialysis access: LIJ Trialysis catheter My [...] stable On systemic heparin Miriam Driver MD Paranormal Investigator Division of Nephrology Consult 1: After 4 [...] Pulmonary will continue to follow. Please call fabrication lead pulmonary consult fellow with additional questions or [...] evaluated the patient during CRRT. Indication for CREDENTIALS SPECIALIST: ESRD Dialysis access: LIJ Trialysis catheter My [...] 1200) Recent Labs Lab Units 06/13/2233 06/12/22204606/12/22 08 WBC K/cumm 15.6* 14.6* 12.5* HEMOGLOBIN g/dL 7.7* 8.1* 7.5* PLATELETS K/cumm 191 207 174 Recent Labs Lab Units 06/13/22 0933 06/12/22 2047 06/12/22 0802 06/11/22201106/11/22 0848 06/10/22 2227 [...] Jr., 51 y.o. male (: 1970) Room: [place] [address] [address] ( ) LOS: 9 Adelia Garvin Jr. [...] Plan 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, complicated by ESRD on PD, CAD s/p PCI, CHF - HbA1c 7.4% - Uses Omnipod and Dexcom G6 at home, not currently on this- doesn't have the supplies -On significantly higher basal rates on pump at night due to peritoneal dialysis -home settings: Basal rate 0330 >>1.7 0800 >> 0.8 2000 >> 5.8 ICR1:6.5 ISF1:25 [id number] TIA 4 Currently on TF Glucerna 1.5 ( CHO 133) Recommendations: - please decrease Lantus to 30 units qAM - Humalog 5 units Q4hrs - Resistant correctional Humalog q4 hrs - POC glucoses q4hrs Discharge recommendations: Start Omnipod insulin pump at pre-hospital settings #Acute hypoxic respiratory failure #ESRD on PD at home - on CRRT ## Discharge Planning - Follow-up with home deblocker We will sign off, we are happy to come back on board once he is back on his PD -- Kellee Magallanes MD Endocrinology, Metabolism, & Lipid Research Contact Info: New Consults: [phone]) General Endocrine (Non-Diabetes): [phone] (Check 'Treatment Team' assignment for Diabetes 1 vs 2 vs 3) Diabetes 1: Diabetes Fellow: [phone] Diabetes 2: Dora Delarosa, SECURITY OPERATIONS CENTER ANALYST: [phone] Diabetes 3: See Treatment Team Provider (or [...] discussion with the patient. Bryce Langley MD, [facility] Paranormal Investigatorenvironmental compliance officer Division of Endocrinology, Metabolism & Lipid Research * Plan of Care - Brandon, Robert Freeman RN - 06/13/2022 8:55 AM CDT Goals: [...] Progressing * Plan of Gayathri - Joyce Begum, CREDENTIALS SPECIALIST - 06/13/2022 4:03 AM CDT Patient on [...] evaluated the patient during CRRT. Indication for CREDENTIALS SPECIALIST: ESRD Dialysis access: LIJ Trialysis catheter My [...] In: 2548.8 [I.V.:938.8; NG/GT:1000; IV Piggyback:610] Out: 2684 [Urine:700; Other:1984] I/O this shift: In: 971.4 [...] 1,400 mL/hr, Last Rate: 1,400 mL/hr (06/12/22 172) NxStage 4-potassium/2.5-calcium, 1,400 mL/hr, Last Rate: 1,400 mL/hr (06/12/221730) propofol, 0-50 mcg/kg/min, Last Rate: 15 mcg/kg/min [...] scale Q4h Ayah Hoang MD Endocrinology Fellow [phone] Cosigned by Ann Boston MD at 06/12/2022 [...] puff, 2 puff, inhalation, Q6H PRN (RT), eDwey Parra MD [Held by Provider] amLODIPine (NORVASC) [...] solution 15 mL, 15 mL, mouth/throat, BID, Meem Castro MD, 15mL at 06/12/22 0839 [Held [...] injection 0-10 Units, 0-10 Units, subcutaneous, Q4H [facility], Meme Castro MD, 4 Units at 06/12/22 0459 insulin [...] NAUN, Low Cardoso MD, 500,000 Units at 06/07/22 0802 ondansetron [...] 10 mg/mL infusion, 0-50 mcg/kg/min, intravenous, Titrated, Peter, Jeffrey Robles MD, Last Rate: 16.9 mL/hr at 06/12/22 [...] capsule 2 mg, 2 mg, oral, Nightly, HoDewey MD, 2 mg at 06/06/222018 vancomycin (VANCOCIN) [...] diaphragm with the tip excluded from the huaot-fg-antx. Left internal jugular catheter projects at superior [...] scale Q4h Ayah Hoang MD Endocrinology Fellow [phone] Cosigned by Ann Boston MD at 06/12/2022 [...] evaluated the patient during CRRT. Indication for CREDENTIALS SPECIALIST: ESRD Dialysis access: LIJ Trialysis catheter My [...] 1145) Recent Labs Lab Units 06/11/22 0848 06/10/22222606/10/22751 WBC K/cumm 10.4* 17.2* 10.2* HEMOGLOBIN g/dL 7.8* 9.0* 8.3* PLATELETS K/cumm 191 274 201 Recent Labs Lab Units 06/11/22 0848 06/10/227 06/10/222 06/09/22203206/09/2275606/08/222007 SODIUM mmol/L 134* 136 135 134* < [...] this interval not displayed. Vonnie Cody MD environmental compliance officer Division of Nephology Consult 1: After 4 [...] 4-potassium/2.5-calcium, 1,400 mL/hr, Last Rate: 1,400 mL/hr (06/11/22634) propofol, 0-50 mcg/kg/min, Last Rate: 30 mcg/kg/min [...] evaluated the patient during CRRT. Indication for CREDENTIALS SPECIALIST: ESRD Dialysis access: LIJ Trialysis catheter My [...] (06/10/22 1000) Recent Labs Lab Units 06/10/22 07506/09/22203206/09/22756 WBC K/cumm 10.2* 9.1 8.6 HEMOGLOBIN g/dL 8.3* 8.2* 8.1* PLATELETS K/cumm 201 208 179 Recent Labs Lab Units 06/10/22 07506/09/22203206/09/2275606/08/22200706/08/22 0028 06/07/22 2258 SODIUM mmol/L 135 134* [...] this interval not displayed. Vonnie Cody MD environmental compliance officer Division of Nephology Consult 1: After 4 PM on , after 12 PM on Monday, and all day Monday, please contact on-call renal fellow at with questions. * Consults, Subsequent - Kellee Magallanes MD - 06/10/2022 1:00 PM CDT Endocrinology & Diabetes Progress Note Patient: Adelia Garvin Jr., 51 y.o. male (: 1970) Room: [place] [address] [address] ( ) LOS: 6 Adelia Garvin Jr. [...] Plan 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, with detention use of insulin, complicated by ESRD on PD, CAD s/p PCI, CHF - HbA1c 7.4% - Uses Omnipod and Dexcom G6 at home, not currently on this- doesn't have the supplies -On significantly higher basal rates on pump at night due to peritoneal dialysis -home settings: Basal rate 0330 >>1.7 0800 >> 0.8 2000 >> 5.8 ICR1:6.5 ISF1:25 [id number] TIA 4 Recommendations: - Lantus 33 units [...] ## Discharge Planning - Follow-up with home deblocker -- Kellee Magallanes MD Endocrinology, Metabolism, & Lipid Research Contact Info: New Consults: [phone]) General Endocrine (Non-Diabetes): [phone] (Check 'Treatment Team' assignment for Diabetes 1 vs 2 vs 3) Diabetes 1: Diabetes Fellow: [phone] Diabetes 2: Dora Delarosa, SECURITY OPERATIONS CENTER ANALYST: [phone] Diabetes 3: See Treatment Team Provider (or [...] discussion with the patient. Bryce Langley MD, [facility] Paranormal Investigatorenvironmental compliance officer Division of Endocrinology, Metabolism & Lipid Research [...] unit/mL injection 33 Units 33 Units subcutaneous [facility] Meme Castro MD 33 Units at 06/10/22 0847 insulin lispro (HumaLOG, ADMELOG) 100 unit/mL injection 0-10 Units 0-10 Units subcutaneous Q4H [facility] Meme Castro MD 2 Units at 06/10/22 [...] tube Daily Lavern Morrison MD 1 tablet at 06/10/22 0850 sodium chloride 0.9% infusion 10 mL/hr [...] evaluated the patient during CRRT. Indication for CREDENTIALS SPECIALIST: ESRD Dialysis access: LIJ Trialysis catheter My [...] this interval not displayed. Vonnie Cody MD environmental compliance officer Division of Nephology Consult 1: After 4 [...] Jr., 51 y.o. male (: 1970) Room: [place] [address] [address] ( ) LOS: 5 Adelia Garvin Jr. is a 51 y.o. male with PMHx CHF (EF 50% in 2017), atrial fibrillation not on OAC, HTN/HLD, CAD s/p PCI, ESRD on PD, hyperparathyroidism presenting with weakness, N/V, diarrhea and chest pain. He is scheduled for [facility] on 06/06. Diabetes service consulted for T1DM on insulin pump. Interval Events & Subjective He is still sedated intubated , no significant improvement in his oxygen needs. He is currently on D10% 20 ml/hr Minimal requirements on ISS BS readings are controlled Diet: No diet orders on file Recent Labs Lab Units 06/09/22 0757 06/09/22 0755 06/09/22 0406 06/08/22 2325 06/08/22200706/08/22 2004 06/08/22 2003 06/08/22 1620 06/08/22 1146 [...] Plan 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, complicated by ESRD on PD, CAD s/p PCI, CHF - HbA1c 7.4% - Uses Omnipod and Dexcom G6 at home, not currently on this- doesn't have the supplies -On significantly higher basal rates on pump at night due to peritoneal dialysis -home settings: Basal rate 0330 >>1.7 0800 >> 0.8 2000 >> 5.8 ICR1:6.5 ISF1:25 [id number] TIA 4 Recommendations: - Lantus 33 units [...] ## Discharge Planning - Follow-up with home deblocker -- Kellee Magallanes MD Endocrinology, Metabolism, & Lipid Research Contact Info: New Consults: [phone]) General Endocrine (Non-Diabetes): [phone] (Check 'Treatment Team' assignment for Diabetes 1 vs 2 vs 3) Diabetes 1: Diabetes Fellow: [phone] Diabetes 2: Dora Delarosa, SECURITY OPERATIONS CENTER ANALYST: [phone] Diabetes 3: See Treatment Team Provider (or [...] discussion with the patient. Bryce Langley MD, [facility] Paranormal Investigatorenvironmental compliance officer Division of Endocrinology, Metabolism & Lipid Research * Plan of Care - MartaEmily l[place]enF[place] - 06/09/2022 4:50 AM CDT Mechanical Ventilation [...] Jr., 51 y.o. male (: 1970) Room: [place] [address] [address] ( ) LOS: 4 Adelia Garvin Jr. [...] Plan 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, complicated by ESRD on PD, CAD s/p PCI, CHF - HbA1c 7.4% - Uses Omnipod and Dexcom G6 at home, not currently on this- doesn't have the supplies -On significantly higher basal rates on pump at night due to peritoneal dialysis -home settings: Basal rate 0330 >>1.7 0800 >> 0.8 2000 >> 5.8 ICR1:6.5 ISF1:25 [id number] TIA 4 Recommendations: - Lantus 33 units [...] ## Discharge Planning - Follow-up with home deblocker -- Kellee Magallanes MD Endocrinology, Metabolism, & Lipid Research Contact Info: New Consults: [phone]) General Endocrine (Non-Diabetes): [phone] (Check 'Treatment Team' assignment for Diabetes 1 vs 2 vs 3) Diabetes 1: Diabetes Fellow: [phone] Diabetes 2: Dora Delarosa, SECURITY OPERATIONS CENTER ANALYST: [phone] Diabetes 3: See Treatment Team Provider (or [...] evaluated the patient during CRRT. Indication for CREDENTIALS SPECIALIST: ESRD Dialysis access: LIJ Trialysis catheter My [...] Stopped (06/07/22 190) Recent Labs Lab Units 06/08/22 0214 06/07/22 [...] -- 4.7* 7.2* 6.6* Vonnie Cody MD environmental compliance officer Division of Nephology Consult 1: After 4 PM on , after 12 PM on Monday, and all day Monday, please contact on-call renal fellow at with questions. * Plan of Care - Joyce Begum, CREDENTIALS SPECIALIST - 06/08/2022 3:33 AM CDT Patient on mechanical ventilation. Wean as tolerated. * Plan of Care - Low Cardoso MD - 06/07/2022 4:37 PM CDT Nephrology update note Patient not seen, off the floor for cardiac catheterization Patient reportedly had cardiopulmonary decompensation requiring intubation. Additionally had Impella placed and undergoing ECMO evaluation Trialysis catheter placed while in cardiac optical lab technician Given need for aggressive volume removal, will start CVVHDF Low Cardoso MD Nephrology Fellow Consult 2 Service Contact via [employer] Message After 4pm on , after 12pm [...] given. Additionally hypoxic on blood gas. Assisted DEHORNER team in getting levo and epi gtt started, titrated up to 0.1mcg/kg/min each. Impella placed by interventional cardiology team. CTS at bedside for ECMO evaluation. Cj Yang, CA-3, Anesthesiology [facility] Cosigned by Cody Mendosa MD at 06/08/2022 2:17 PM CDT Associated attestation - Cody Mendosa MD - 06/08/2022 2:17 PM CDT Anesthesia STAT was called while patient in optical lab technician for complex PCI. Upon my [...] Jr., 51 y.o. male (: 1970) Room: [facility]/NO* ( ) LOS: 3 [...] Plan 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, with detention use of insulin, complicated by ESRD on PD, CAD s/p PCI, CHF - HbA1c 7.4% - Uses Omnipod and Dexcom G6 at home, not currently on this- doesn't have the supplies - - On significantly higher basal rates on pump at night due to peritoneal dialysis -home settings: Basal rate 0330 >>1.7 0800 >> 0.8 2000 >> 5.8 ICR1:6.5 ISF1:25 [id number] TIA 4 Recommendations: - Lantus 33 units [...] ## Discharge Planning - Follow-up with home deblocker -- Kellee Magallanes MD Endocrinology, Metabolism, & Lipid Research Contact Info: New Consults: [phone] (-[phone]) General Endocrine (Non-Diabetes): [phone] (Check 'Treatment Team' assignment for Diabetes 1 vs 2 vs 3) Diabetes 1: Diabetes Fellow: [phone] Diabetes 2: Dora Delarosa, SECURITY OPERATIONS CENTER ANALYST: [phone] Diabetes 3: See Treatment Team Provider (or [...] Daily Dewey Parra MD 81 mg at 06/07/22801 atorvastatin (LIPITOR) tablet 80 mg 80 mg [...] tablet 10 mg 10 mg oral Daily Dewye Parra MD 10 mg at 06/07/22 0802 [...] 500,000 Units 500,000 Units swish & spit Low Shipman MD 500,000 Units at 06/07/22 [...] monitor VS, improve oxygenation status, go to optical lab technician for LHC today,possibly do another [...] Thank you, SIL Avilez, RN, CCDS Email: [email or web address] * Consults, Subsequent - Low Cardoso [...] normal. Behavior: Behavior normal. Date 06/05/22699 - 06/06/22 0659 06/06/22699 - 06/07/22 0659 Shift [id number] 1078-5088 24 Hour Total 7509-0950 0805-9980 24 Hour Total INTAKE P.O. 60 60 450 450 I.V.(mL/kg) 443.1(3.1) 443.1(3.1) 147.7(1) 147.7(1) Other 52496 26676 08551 IV Piggyback 105 105 Shift Total(mL/kg) 72969(84.2) 26659.1(86.1) 98590.1(170.3) 597.7(4.2) 597.7(4.2) OUTPUT Urine(mL/kg/hr) 0(0) 6(0) 6(0) 0 0 Other 32351 14643 32496 Stool 0 0 Shift Total(mL/kg) 81491(87.7) 45490(98.3) 75951(186) 0(0) 0(0) NET -498 -1729.9 -2227.9 597.7 597.7 Weight (kg) 142 142 142 142 142 142 LABORATORY DATA: Recent Labs Lab Units 06/05/22204606/05/22 1554 06/04/22 2252 WBC K/cumm 9.1 10.7* 7.7 HEMOGLOBIN g/dL 9.3* 10.3* 9.5* PLATELETS K/cumm 201 238 195 Recent Labs Lab Units 06/05/22204606/05/22 1554 06/05/22 1522 06/05/22 1517 06/04/222 SODIUM mmol/L 132* 132* 127* -- 129* [...] Nephrology Fellow Consult 2 Service Contact via [employer] Message After 4pm on , after 12pm [...] Jr., 51 y.o. male (: 1970) Room: [id number] ( ) LOS: 2 Adelia Garvin Jr. [...] Plan 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, with detention use of insulin, complicated by ESRD on PD, CAD s/p PCI, CHF - HbA1c 7.4% - Uses Omnipod and Dexcom G6 at home, not currently on this- doesn't have the supplies - - On significantly higher basal rates on pump at night due to peritoneal dialysis -home settings: Basal rate 0330 >>1.7 0800 >> 0.8 2000 >> 5.8 ICR1:6.5 ISF1:25 [id number] TIA 4 Recommendations: - Lantus 33 units [...] ## Discharge Planning - Follow-up with home deblocker -- Kellee Magallanes MD Endocrinology, Metabolism, & Lipid Research Contact Info: New Consults: [phone] (-[phone]) General Endocrine (Non-Diabetes): [phone] (Check 'Treatment Team' assignment for Diabetes 1 vs 2 vs 3) Diabetes 1: Diabetes Fellow: [phone] Diabetes 2: Dora Delarosa, SECURITY OPERATIONS CENTER ANALYST: [phone] Diabetes 3: See Treatment Team Provider (or [...] Shift: Monitor VS and keep SBP 140-160, labor arbitrator hearing office for [facility] Summary: * Plan of Care - Karuna [...] we should call his brother Ronny Garvin [phone] or [phone] (pt not sure which is the correct [...] utility assistance and LIHEAP assistance programs for [facility]. Pt denied other needs stating he has good support from his brother and son. SÁNCHEZ Virk, SHIPYARD PAINTER HELPER * Plan of Care - Manisha Wong [...] the risk of falls will improve 06/05/2022 184 by Kerry Henley, RN Outcome: Progressing 06/05/2022 181 by Kerry Henley, RN Outcome: Progressing Problem: Safety: Goal: Will remain free from falls 06/05/2022 1843 by Kerry Henley, RN Outcome: Progressing 06/05/2022 181 by Kerry Henley, RN Outcome: Progressing Goal: Will remain free from injury from falls 06/05/2022 184 by Kerry Henley, RN Outcome: Progressing 06/05/2022 181 by Kerry Henley, RN Outcome: Progressing Goal: Will remain free from falls and injury in home environment 06/05/2022 184 by Kerry Henley, RN Outcome: Progressing 06/05/2022 181 by Kerry Henley, RN Outcome: Progressing Problem: Lack of Knowledge: Goal: Knowledge of disease or condition and prescribed therapeutic regimen will improve 06/05/2022 184 by Kerry Henley, RN Outcome: Progressing 06/05/2022 181 by Kerry Henley RN Outcome: Progressing Problem: Coping: Goal: Level of anxiety will decrease 06/05/2022 184 by Kerry Henley, RN Outcome: Progressing 06/05/2022 181 by Kerry Henley, RN Outcome: Progressing Problem: Sensory: Goal: Pain level will decrease 06/05/2022 184 by Kerry Henley, RN Outcome: Progressing 06/05/2022 181 by Kerry Henley, RN Outcome: Progressing Problem: Lack of Knowledge: Goal: Ability to describe self-care measures that may prevent or decrease complications will improve 06/05/2022 184 by Kerry Henley, [...] balanced intake and output will improve 06/05/2022 184 by Kerry Henley, RN Outcome: Progressing 06/05/2022 181 by Kerry Henley, RN Outcome: Not Progressing Problem: Health Behavior: Goal: Ability to identify and alter actions that are detrimental to health will improve 06/05/2022 184 by Kerry Henley, [...] Goal: Diagnostic test results will improve 06/05/2022 1843 by Kerry Henley RN Outcome: Progressing 06/05/2022 181 by Kerry Henley RN Outcome: Progressing Problem: Skin Integrity: Goal: Risk for impaired skin integrity will decrease 06/05/2022 184 by Kerry Henley RN Outcome: Progressing 06/05/2022 181 by Kerry Henley RN Outcome: Progressing * [...] pt will remain HDS * Plan of Gayathri - Kristie Banegas RN - 06/05/2022 12:02 [...] POCT GLUCOSE DEVICE Routine 06/29/2022 11:51 AM SIGNALING PROJECT ENGINEER POCT GLUCOSE DEVICE Routine 06/29/2022 7 :43 AM SIGNALING PROJECT ENGINEER POCT GLUCOSE DEVICE Routine 06/28/2022 8 :08 PM SIGNALING PROJECT ENGINEER COVID-19 CORONAVIRUS RNA Routine 06/28/2022 3:46 PM SIGNALING PROJECT ENGINEER POCT GLUCOSE DEVICE Routine 06/28/2022 3 :33 PM SIGNALING PROJECT ENGINEER POCT GLUCOSE DEVICE Routine 06/28/2022 11:42 AM SIGNALING PROJECT ENGINEER POCT GLUCOSE DEVICE Routine 06/28/2022 9 :53 AM SIGNALING PROJECT ENGINEER POCT GLUCOSE DEVICE Routine 06/28/2022 8 :37 AM SIGNALING PROJECT ENGINEER POCT GLUCOSE DEVICE Routine 06/28/2022 8 :20 AM SIGNALING PROJECT ENGINEER POCT GLUCOSE DEVICE Routine 06/28/2022 8 :02 AM SIGNALING PROJECT ENGINEER POCT GLUCOSE DEVICE Routine 06/28/2022 7 :41 AM SIGNALING PROJECT ENGINEER POCT GLUCOSE DEVICE Routine 06/27/2022 7 :51 PM SIGNALING PROJECT ENGINEER POCT GLUCOSE DEVICE Routine 06/27/2022 4 :54 PM SIGNALING PROJECT ENGINEER POCT GLUCOSE DEVICE Routine 06/27/2022 11:37 AM SIGNALING PROJECT ENGINEER POCT GLUCOSE DEVICE Routine 06/27/2022 7 :54 AM SIGNALING PROJECT ENGINEER EGFR Routine 06/27/2022 3:51 AM SIGNALING PROJECT ENGINEER CBC WITHOUT DIFFERENTIAL Routine 06/27/2022 3:51 AM SIGNALING PROJECT ENGINEER BASIC METABOLIC PANEL Routine 06/27/2022 3:51 AM SIGNALING PROJECT ENGINEER POCT GLUCOSE DEVICE Routine 06/27/2022 1 :54 AM SIGNALING PROJECT ENGINEER POCT GLUCOSE DEVICE Routine 06/26/2022 9 :14 PM SIGNALING PROJECT ENGINEER POCT GLUCOSE DEVICE Routine 06/26/2022 5 :53 PM SIGNALING PROJECT ENGINEER POCT GLUCOSE DEVICE Routine 06/26/2022 1 :16 PM SIGNALING PROJECT ENGINEER POCT GLUCOSE DEVICE Routine 06/26/2022 11:09 AM SIGNALING PROJECT ENGINEER POCT GLUCOSE DEVICE Routine 06/26/2022 9 :07 AM SIGNALING PROJECT ENGINEER POCT GLUCOSE DEVICE Routine 06/26/2022 7 :25 AM SIGNALING PROJECT ENGINEER EGFR Routine 06/26/2022 3:23 AM SIGNALING PROJECT ENGINEER CBC WITHOUT DIFFERENTIAL Routine 06/26/2022 3:23 AM SIGNALING PROJECT ENGINEER BASIC METABOLIC PANEL Routine 06/26/2022 3:23 AM SIGNALING PROJECT ENGINEER POCT GLUCOSE DEVICE Routine 06/26/2022 1 :32 [...] VIDEO IP Routine 06/21/2022 2:06 PM CDT RHIA EVALUATE AND TREAT VIDEOFLUOROSCOPIC SWALLOW STUDY Routine [...] DEVICE Routine 06/17/2022 7 :40 PM CDT MT INSJ NON-TUNNELED CENTRAL VENOUS CATH AGE 3 [...] :00 AM CDT POTASSIUM, WHOLE BLOOD STAT 2 2:14 AM CDT DIFFERENTIAL AUTO Timed 06/08/2022 [...] 12:09 AM CDT POTASSIUM, WHOLE BLOOD STAT 2 10:58 PM CDT EGFR STAT 06/07/2022 10:58 PM CDT BETA-HYDROXYBUTYRATE STAT 06/07/2022 10:58 PM CDT POCT GLUCOSE DEVICE Routine 06/07/2022 10:58 PM CDT LACTATE, WHOLE BLOOD STAT 06/07/2022 10:58 PM CDT PHOSPHORUS STAT 06/07/2022 10:58 PM CDT MAGNESIUM STAT 06/07/2022 10:58 PM CDT BLOOD GAS, ARTERIAL STAT 06/07/2022 10:58 PM CDT BASIC METABOLIC PANEL STAT 06/07/2022 10:58 PM CDT MT ARTL CATHJ/CANNULJ MNTR/TRANSFUSION SPX PRQ Routine 06/07/2022 [...] EGFR STAT 06/05/2022 3:22 PM CDT POCT GK-N-TFE-GLU-HCT,WB - ISTAT Routine 06/05/2022 3:22 PM CDT [...] * (ABNORMAL) POCT glucose (06/29/2022 11:51 AM SIGNALING PROJECT ENGINEER) Glucose, POC 302(H) 70 - 199 mg/dL [facility] Blood 06/29/2022 11:5 1 AM SIGNALING PROJECT ENGINEER 06/29/2022 11:51 AM SIGNALING PROJECT ENGINEER us Frank Bowers MD LAB POCT ORDERABLES - DEVICE F inal Result [facility] Department of Laboratories [place], [place] [id number] * (ABNORMAL) POCT glucose (06/29/2022 7:43 AM SIGNALING PROJECT ENGINEER) Glucose, POC 262(H) 70 - 199 mg/dL [facility] Glucose comment 1 Glu2: RN/ Notified [facility] Blood 06/29/2022 7:43 AM SIGNALING PROJECT ENGINEER 06/29/2022 7:43 AM SIGNALING PROJECT ENGINEER us Frank Bowers MD LAB POCT ORDERABLES - DEVICE F inal Result Performing Organization Address City/[facility] Co de Phone Number [facility] [place] [address] * (ABNORMAL) POCT glucose (06/28/2022 8:08 PM SIGNALING PROJECT ENGINEER) Pathologist [facility] Glucose, POC 260(H) 70 - 199 mg/dL [facility] Blood 06/28/2022 8:0 8 PM SIGNALING PROJECT ENGINEER 06/28/2022 8:08 PM SIGNALING PROJECT ENGINEER Frank Bowers MD LAB POCT ORDERABLES - DEVICE F inal Result Performing Organization Address [facility] de Phone Number [facility] Department [place] [address] * COVID-19 Coronavirus RNA Nasopharyngeal (06/28/2022 3:46 PM SIGNALING PROJECT ENGINEER) [facility] COVID-19 RNA Negative Negative [facility] Nasopharyngeal 06/28/2022 3: 46 PM SIGNALING PROJECT ENGINEER 06/28/2022 4:22 PM SIGNALING PROJECT ENGINEER Narrative [facility] - 06/28/2022 5:03 PM SIGNALING PROJECT ENGINEER Is the patient experiencing any symptoms consistent with COVID (eg. Fever, cough, shortness of breath)?->No What is the reason for testing?->Placement in post-acute care setting (Rapid) ??Interpretive data: Synonyms for this test include: PCR and NAAT . ??This test is performed using the Kal[employer] Xpert Xpress plus assay. This is a [...] . ??This test is performed using the [employer] Xpert Xpress plus assay. This is a [...] ORD ERABLES Final Result Performing Organization Address [facility] Co de Phone Number [facility] Department [place] [address] * (ABNORMAL) POCT glucose (06/28/2022 3:33 PM SIGNALING PROJECT ENGINEER) Glucose, POC 299(H) 70 - 199 mg/dL [facility] Blood 06/28/2022 3:33 PM SIGNALING PROJECT ENGINEER 06/28/2022 3:33 PM SIGNALING PROJECT ENGINEER Frank Bowers MD LAB POCT ORDERABLES - DEVICE F inal Result Performing Organization Address [facility] de Phone Number [facility] Department [place] [address] * (ABNORMAL) POCT glucose (06/28/2022 11:42 AM SIGNALING PROJECT ENGINEER) Glucose, POC 281(H) 70 - 199 mg/dL [facility] Glucose comment 1 Glu2: RN/MD Notified [facility] Blood 06/28/2022 11:4 2 AM SIGNALING PROJECT ENGINEER 06/28/2022 11:42 AM SIGNALING PROJECT ENGINEER Frank Bowers MD LAB POCT ORDERABLES - DEVICE F inal Result Performing Organization Address [facility] Co de Phone Number [facility] [place] [address] * POCT glucose (06/28/2022 9:53 AM SIGNALING PROJECT ENGINEER) Glucose, POC 181 70 - 199 mg/dL [facility] Blood 06/28/2022 9:53 AM SIGNALING PROJECT ENGINEER 06/28/2022 9:53 AM SIGNALING PROJECT ENGINEER Frank Bowers MD LAB POCT ORDERABLES - DEVICE F inal Result Performing Organization Address [facility] [place] [address] * POCT glucose (06/28/2022 8:37 AM SIGNALING PROJECT ENGINEER) Glucose, POC 121 70 - 199 mg/dL [facility] Blood 06/28/2022 8:37 AM SIGNALING PROJECT ENGINEER 06/28/2022 8:37 AM SIGNALING PROJECT ENGINEER Frank Bowers MD LAB POCT ORDERABLES - DEVICE F inal Result Performing Organization Address [facility] Co de Phone Number [facility] Department [place] [address] * POCT glucose (06/28/2022 8:20 AM SIGNALING PROJECT ENGINEER) Glucose, POC 95 70 - 199 mg/dL [facility] Blood 06/28/2022 8:20 AM SIGNALING PROJECT ENGINEER 06/28/2022 8:20 AM SIGNALING PROJECT ENGINEER us Frank Bowers MD LAB POCT ORDERABLES - DEVICE F inal Result Performing Organization Address City/[facility] Co de Phone Number [facility] [place] [address] * POCT glucose (06/28/2022 8:02 AM SIGNALING PROJECT ENGINEER) Glucose, POC 75 70 - 199 mg/dL [facility] Blood 06/28/2022 8:02 AM SIGNALING PROJECT ENGINEER 06/28/2022 8:02 AM SIGNALING PROJECT ENGINEER Frank Bowers MD LAB POCT ORDERABLES - DEVICE F inal Result Performing Organization Address [facility] de Phone Number [place] [address] * (ABNORMAL) POCT glucose (06/28/2022 7:41 AM SIGNALING PROJECT ENGINEER) Glucose, POC 68(L) 70 - 199 mg/dL [facility] Glucose comment 1 Glu2: RN/MD Notified [facility] Blood 06/28/2022 7:41 AM SIGNALING PROJECT ENGINEER 06/28/2022 7:41 AM SIGNALING PROJECT ENGINEER Frank Bowers MD LAB POCT ORDERABLES - DEVICE F inal Result Performing Organization Address [facility] Co de Phone Number [place] [address] * POCT glucose (06/27/2022 7:51 PM SIGNALING PROJECT ENGINEER) Glucose, POC 199 70 - 199 mg/dL [facility] Blood 06/27/2022 7:51 PM SIGNALING PROJECT ENGINEER 06/27/2022 7:51 PM SIGNALING PROJECT ENGINEER Carey East MD LAB POCT ORDERABLES - DEVICE Final Result Performing Organization Address [facility] Co de Phone Number [place] [address] * POCT glucose (06/27/2022 4:54 PM SIGNALING PROJECT ENGINEER) Glucose, POC 143 70 - 199 mg/dL [facility] Blood 06/27/2022 4:54 PM SIGNALING PROJECT ENGINEER 06/27/2022 4:54 PM SIGNALING PROJECT ENGINEER Carey East MD LAB POCT ORDERABLES - DEVICE Final Result Performing Organization Address [facility] de Phone Number [place] [address] * (ABNORMAL) POCT glucose (06/27/2022 11:37 AM SIGNALING PROJECT ENGINEER) [facility] Glucose, POC 228(H) 70 - 199 mg/dL [facility] Glucose comment 1 Glu2: RN/MD Notified [facility] Blood 06/27/2022 11:3 7 AM SIGNALING PROJECT ENGINEER 06/27/2022 11:37 AM SIGNALING PROJECT ENGINEER Carey East MD LAB POCT ORDERABLES - DEVICE Final Result Performing Organization Address [facility] de Phone Number [facility] [place] [address] * (ABNORMAL) POCT glucose (06/27/2022 7:54 AM SIGNALING PROJECT ENGINEER) [facility] Glucose, POC 350(H) 70 - 199 mg/dL [facility] Blood 06/27/2022 7:54 AM SIGNALING PROJECT ENGINEER 06/27/2022 7:54 AM SIGNALING PROJECT ENGINEER Carey East MD LAB POCT ORDERABLES - DEVICE Final Result Performing Organization Address [facility] [place] [address] * (ABNORMAL) eGFR (06/27/2022 3:51 AM SIGNALING PROJECT ENGINEER) [facility] eGFR 6(L) 90 - 130 mL/min/1. 73 m2 [facility] Comment: Interpretive Data Reference Interval [...] last reviewed 2021. Blood 06/27/2022 3:51 AM SIGNALING PROJECT ENGINEER 06/27/2022 4:28 AM SIGNALING PROJECT ENGINEER us Carey East MD LAB BLOOD ORDERABLES Final Result [facility] Department [place] [address] * (ABNORMAL) CBC without differential (06/27/2022 3:51 AM SIGNALING PROJECT ENGINEER) Pathologist [facility] WBC 3.8 3.8 - 9.9 K/cumm [facility] Hgb 7.5(L) 13.0 - 17.5 g/dL [facility] Hct 22.8(L) 38.9 - 50.3 % [facility] Plt 294 150 - 400 K/cumm [facility] MPV 10.0 9.1 - 12.3 fL [facility] RBC 2.49(L) 4.30 - 5.80 M/cumm [facility] MCV 91.6 81.3 - 96.4 fL [facility] MCH 30.1 27.1 - 33.3 pg [facility] MCHC 32.9 32.3 - 35.7 g/dL [facility] RDW CV 17.5(H) 11.1 - 14.9 % [facility] RDW SD 57.9(H) 35.7 - 48.1 fL [facility] NRBC abs 0.00 0.00 - 0.01 K/cumm [facility] Blood 06/27/2022 3:51 AM SIGNALING PROJECT ENGINEER 06/27/2022 4:28 AM SIGNALING PROJECT ENGINEER us Carey East MD LAB BLOOD ORDERABLES Final Result [facility] Department [place] [address] * (ABNORMAL) Basic metabolic panel (06/27/2022 3:51 AM SIGNALING PROJECT ENGINEER) Sodium 132(L) 135 - 145 mmol/L [facility] Potassium, pl 3.1(L) 3.3 - 4.9 mmol/L [facility] Chloride 89(L) 97 - 110 mmol/L [facility] CO2 26 22 - 32 mmol/L [facility] Anion gap 17(H) 2 - 15 mmol/L [facility] BUN 46(H) 8 - 25 mg/dL [facility] Creatinine 10.21(H) 0.80 - 1.30 mg/dL [facility] Glucose 274(H) 70 - 199 mg/dL [facility] Comment: Interpretive Data Fasting glucose [...] 2017. Calcium 8.4(L) 8.5 - 10.3 mg/dL [facility] Blood 06/27/2022 3:51 AM SIGNALING PROJECT ENGINEER 06/27/2022 4:28 AM SIGNALING PROJECT ENGINEER Carey East MD LAB BLOOD ORDERABLES Final Result Performing Organization Address City/[facility] Co de Phone Number [place] [address] * (ABNORMAL) POCT glucose (06/27/2022 1:54 AM SIGNALING PROJECT ENGINEER) Glucose, POC 276(H) 70 - 199 mg/dL [facility] Blood 06/27/2022 1:54 AM SIGNALING PROJECT ENGINEER 06/27/2022 1:54 AM SIGNALING PROJECT ENGINEER Carey East MD LAB POCT ORDERABLES - DEVICE Final Result Performing Organization Address [facility] Co de Phone Number [place] [address] * POCT glucose (06/26/2022 9:14 PM SIGNALING PROJECT ENGINEER) Glucose, POC 184 70 - 199 mg/dL [facility] Blood 06/26/2022 9:14 PM SIGNALING PROJECT ENGINEER 06/26/2022 9:14 PM SIGNALING PROJECT ENGINEER Carey East MD LAB POCT ORDERABLES - DEVICE Final Result Performing Organization Address City/[facility] Co de Phone Number [place] [address] * POCT glucose (06/26/2022 5:53 PM SIGNALING PROJECT ENGINEER) Glucose, POC 98 70 - 199 mg/dL [facility] Blood 06/26/2022 5:53 PM SIGNALING PROJECT ENGINEER 06/26/2022 5:53 PM SIGNALING PROJECT ENGINEER Carey East MD LAB POCT ORDERABLES - DEVICE Final Result Performing Organization Address [facility] Co de Phone Number [place] [address] * (ABNORMAL) POCT glucose (06/26/2022 1:16 PM SIGNALING PROJECT ENGINEER) Glucose, POC 202(H) 70 - 199 mg/dL [facility] Blood 06/26/2022 1:16 PM SIGNALING PROJECT ENGINEER 06/26/2022 1:16 PM SIGNALING PROJECT ENGINEER Carey East MD LAB POCT ORDERABLES - DEVICE Final Result Performing Organization Address [facility] [place] [address] * (ABNORMAL) POCT glucose (06/26/2022 11:09 AM SIGNALING PROJECT ENGINEER) Glucose, POC 320(H) 70 - 199 mg/dL [facility] Glucose comment 1 Glu2: RN/MD Notified [facility] Blood 06/26/2022 11:0 9 AM SIGNALING PROJECT ENGINEER 06/26/2022 11:09 AM SIGNALING PROJECT ENGINEER Carey East MD LAB POCT ORDERABLES - DEVICE Final Result Performing Organization Address [facility] [place] [address] * (ABNORMAL) POCT glucose (06/26/2022 9:07 AM SIGNALING PROJECT ENGINEER) Glucose, POC 400(H) 70 - 199 mg/dL [facility] Blood 06/26/2022 9:07 AM SIGNALING PROJECT ENGINEER 06/26/2022 9:07 AM SIGNALING PROJECT ENGINEER Carey East MD LAB POCT ORDERABLES - DEVICE Final Result Performing Organization Address [facility] Co de Phone Number [facility] [place] [address] * (ABNORMAL) POCT glucose (06/26/2022 7:25 AM SIGNALING PROJECT ENGINEER) Pathologist [facility] Glucose, POC 393(H) 70 - 199 mg/dL [facility] Glucose comment 1 Glu2: RN/MD Notified [facility] Blood 06/26/2022 7:25 AM SIGNALING PROJECT ENGINEER 06/26/2022 7:25 AM SIGNALING PROJECT ENGINEER Carey East MD LAB POCT ORDERABLES - DEVICE Final Result Performing Organization Address [facility] de Phone Number [facility] [place] [address] * (ABNORMAL) eGFR (06/26/2022 3:23 AM SIGNALING PROJECT ENGINEER) Pathologist [facility] eGFR 5(L) 90 - 130 mL/min/1. 73 m2 [facility] Comment: Interpretive Data Reference Interval [...] last reviewed 2021. Blood 06/26/2022 3:23 AM SIGNALING PROJECT ENGINEER 06/26/2022 5:00 AM SIGNALING PROJECT ENGINEER us Carey East MD LAB BLOOD ORDERABLES Final Result Performing Organization Address City/[facility] Co de Phone Number [facility] [place] [address] * (ABNORMAL) CBC without differential (06/26/2022 3:23 AM SIGNALING PROJECT ENGINEER) WBC 4.1 3.8 - 9.9 K/cumm [facility] Hgb 7.6(L) 13.0 - 17.5 g/dL [facility] Hct 23.3(L) 38.9 - 50.3 % [facility] Plt 250 150 - 400 K/cumm [facility] MPV 10.7 9.1 - 12.3 fL [facility] RBC 2.49(L) 4.30 - 5.80 M/cumm [facility] MCV 93.6 81.3 - 96.4 fL [facility] MCH 30.5 27.1 - 33.3 pg [facility] MCHC 32.6 32.3 - 35.7 g/dL [facility] RDW CV 17.8(H) 11.1 - 14.9 % [facility] RDW SD 59.3(H) 35.7 - 48.1 fL [facility] NRBC abs 0.00 0.00 - 0.01 K/cumm [facility] Blood 06/26/2022 3:23 AM SIGNALING PROJECT ENGINEER 06/26/2022 5:00 AM SIGNALING PROJECT ENGINEER Carey East MD LAB BLOOD ORDERABLES Final Result AL[facility]ANDRA [facility] Department [place] [address] * (ABNORMAL) Basic metabolic panel (06/26/2022 3:23 AM SIGNALING PROJECT ENGINEER) Sodium 134(L) 135 - 145 mmol/L [facility] Potassium, pl 3.6 3.3 - 4.9 mmol/L [facility] Chloride 91(L) 97 - 110 mmol/L [facility] CO2 26 22 - 32 mmol/L [facility] Anion gap 17(H) 2 - 15 mmol/L [facility] BUN 47(H) 8 - 25 mg/dL [facility] Creatinine 10.28(H) 0.80 - 1.30 mg/dL [facility] Glucose 335(H) 70 - 199 mg/dL [facility] Comment: Interpretive Data Fasting glucose [...] 2017. Calcium 8.5 8.5 - 10.3 mg/dL [facility] Blood 06/26/2022 3:23 AM SIGNALING PROJECT ENGINEER 06/26/2022 5:00 AM SIGNALING PROJECT ENGINEER Carey East MD LAB BLOOD ORDERABLES Final Result Performing Organization Address City/[facility]/ZIP Co de Phone Number [facility] Department [place] [address] * (ABNORMAL) POCT glucose (06/26/2022 1:32 AM CDT) Glucose, POC 334(H) 70 - 199 mg/dL [facility] Blood 06/26/2022 1:32 AM CDT 06/26/2022 1:32 AM CDT Carey East MD LAB POCT ORDERABLES - DEVICE Final Result Performing Organization Address [facility] Co de Phone Number [facility] [place] [address] * (ABNORMAL) POCT glucose (06/25/2022 9:02 PM CDT) Glucose, POC 257(H) 70 - 199 mg/dL [facility] Blood 06/25/2022 9:02 PM CDT 06/25/2022 9:02 PM CDT Carey East MD LAB POCT ORDERABLES - DEVICE Final Result Performing Organization Address [facility] Co de Phone Number [facility] [place] [address] * (ABNORMAL) POCT glucose (06/25/2022 6:30 PM CDT) Glucose, POC 223(H) 70 - 199 mg/dL [facility] Blood 06/25/2022 6:30 PM CDT 06/25/2022 6:30 PM CDT Carey East MD LAB POCT ORDERABLES - DEVICE Final Result Performing Organization Address [facility] [place] [address] * (ABNORMAL) POCT glucose (06/25/2022 4:21 PM CDT) Glucose, POC 241(H) 70 - 199 mg/dL [facility] Glucose comment 1 Glu2: RN/MD Notified [facility] Blood 06/25/2022 4:21 PM CDT 06/25/2022 4:21 PM CDT Carey East MD LAB POCT ORDERABLES - DEVICE Final Result Performing Organization Address [facility] de Phone Number [facility] [place] [address] * (ABNORMAL) POCT glucose (06/25/2022 11:42 AM CDT) Glucose, POC 296(H) 70 - 199 mg/dL [facility] Glucose comment 1 Glu2: RN/MD Notified [facility] Blood 06/25/2022 11:4 2 AM CDT 06/25/2022 11:42 AM CDT Carey East MD LAB POCT ORDERABLES - DEVICE Final Result Performing Organization Address [facility] de Phone Number [facility] [place] [address] * (ABNORMAL) POCT glucose (06/25/2022 7:42 AM CDT) Glucose, POC 363(H) 70 - 199 mg/dL [facility] Glucose comment 1 Glu2: RN/MD Notified [facility] Blood 06/25/2022 7:42 AM CDT 06/25/2022 7:42 AM CDT Carey East MD LAB POCT ORDERABLES - DEVICE Final Result Performing Organization Address [facility] [place] [address] * (ABNORMAL) eGFR (06/25/2022 4:36 AM CDT) eGFR 6(L) 90 - 130 mL/min/1. 73 m2 [facility] Comment: Interpretive Data Reference Interval [...] BLOOD ORDERABLES Final Result Performing Organization Address City/State/[facility] Co de Phone Number [facility] Department [place] [address] * (ABNORMAL) Phosphorus (06/25/2022 4:36 AM CDT) Phosphorus, pl 7.9(H) 2.3 - 4.5 mg/dL [facility] Comment:Reviewed Blood 06/25/2022 4:36 AM CDT 06/25/2022 5:15 AM CDT Carey East MD LAB BLOOD ORDERABLES Final Result ALESSANDRA [facility] Department [place] [address] * (ABNORMAL) Basic metabolic panel (06/25/2022 4:36 AM CDT) Pathologist [facility] Sodium 135 135 - 145 mmol/L [facility] Potassium, pl 3.9 3.3 - 4.9 mmol/L [facility] Chloride 93(L) 97 - 110 mmol/L [facility] CO2 28 22 - 32 mmol/L [facility] Anion gap 14 2 - 15 mmol/L [facility] BUN 44(H) 8 - 25 mg/dL [facility] Creatinine 9.57(H) 0.80 - 1.30 mg/dL [facility] Glucose 281(H) 70 - 199 mg/dL [facility] Comment: Interpretive Data Fasting glucose [...] 2017. Calcium 8.6 8.5 - 10.3 mg/dL [facility] Blood 06/25/2022 4:36 AM CDT 06/25/2022 5:15 AM CDT Carey East MD LAB BLOOD ORDERABLES Final Result Performing Organization Address City/[facility]/ZIP Co de Phone Number ALESSANDRA [facility] Department [place] [address] * (ABNORMAL) POCT glucose (06/25/2022 1:41 AM CDT) Glucose, POC 265(H) 70 - 199 mg/dL [facility] Blood 06/25/2022 1:41 AM CDT 06/25/2022 1:41 AM CDT Carey East MD LAB POCT ORDERABLES - DEVICE Final Result Performing Organization Address [facility] Co de Phone Number [facility] [place] [address] * (ABNORMAL) POCT glucose (06/24/2022 8:01 PM CDT) Glucose, POC 246(H) 70 - 199 mg/dL [facility] Blood 06/24/2022 8:01 PM CDT 06/24/2022 8:01 PM CDT Carey East MD LAB POCT ORDERABLES - DEVICE Final Result Performing Organization Address [facility] Co de Phone Number [facility] [place] [address] * POCT glucose (06/24/2022 4:55 PM CDT) Glucose, POC 185 70 - 199 mg/dL [facility] Blood 06/24/2022 4:55 PM CDT 06/24/2022 4:55 PM CDT Carey East MD LAB POCT ORDERABLES - DEVICE Final Result Performing Organization Address City/[facility] Co de Phone Number [place] [address] * (ABNORMAL) POCT glucose (06/24/2022 12:53 PM CDT) Glucose, POC 275(H) 70 - 199 mg/dL [facility] Glucose comment 1 Glu2: RN/MD Notified [facility] Blood 06/24/2022 12:5 3 PM CDT 06/24/2022 12:53 PM CDT Carey East MD LAB POCT ORDERABLES - DEVICE Final Result Performing Organization Address [facility] Co de Phone Number [facility] [place] [address] * (ABNORMAL) POCT glucose (06/24/2022 11:31 AM CDT) Glucose, POC 346(H) 70 - 199 mg/dL [facility] Glucose comment 1 Glu2: RN/MD Notified [facility] Blood 06/24/2022 11:3 1 AM CDT 06/24/2022 11:31 AM CDT Carey East MD LAB POCT ORDERABLES - DEVICE Final Result Performing Organization Address [facility] Co de Phone Number [place] [address] * (ABNORMAL) POCT glucose (06/24/2022 9:54 AM CDT) Glucose, POC 411(H) 70 - 199 mg/dL [facility] Blood 06/24/2022 9:54 AM CDT 06/24/2022 9:54 AM CDT Carey East MD LAB POCT ORDERABLES - DEVICE Final Result Performing Organization Address City/[facility] [place] [address] * (ABNORMAL) POCT glucose (06/24/2022 7:33 AM CDT) Glucose, POC 415(H) 70 - 199 mg/dL [facility] Glucose comment 1 Glu2: RN/ Notified [facility] Blood 06/24/2022 7:33 AM CDT 06/24/2022 7:33 AM CDT Carey East MD LAB POCT ORDERABLES - DEVICE Final Result Performing Organization Address City/State/[facility] Co de Phone Number [facility] Department [place] [address] * (ABNORMAL) eGFR (06/24/2022 4:10 AM CDT) eGFR 7(L) 90 - 130 mL/min/1. 73 m2 [facility] Comment: Interpretive Data Reference Interval [...] BLOOD ORDERABLES Final Result Performing Organization Address [facility] de Phone Number [facility] Department [place] [address] * (ABNORMAL) CBC without differential (06/24/2022 4:10 AM CDT) Pathologist [facility] WBC 4.3 3.8 - 9.9 K/cumm [facility] Hgb 7.9(L) 13.0 - 17.5 g/dL [facility] Hct 24.0(L) 38.9 - 50.3 % [facility] Plt 206 150 - 400 K/cumm [facility] MPV 10.3 9.1 - 12.3 fL [facility] RBC 2.61(L) 4.30 - 5.80 M/cumm [facility] MCV 92.0 81.3 - 96.4 fL [facility] MCH 30.3 27.1 - 33.3 pg [facility] MCHC 32.9 32.3 - 35.7 g/dL [facility] RDW CV 18.5(H) 11.1 - 14.9 % [facility] RDW SD 58.3(H) 35.7 - 48.1 fL [facility] NRBC abs 0.00 0.00 - 0.01 K/cumm [facility] Blood 06/24/2022 4:10 AM CDT 06/24/2022 4:34 AM CDT Carey East MD LAB BLOOD ORDERABLES Final Result Performing Organization Address [facility]/ZIP Co de Phone Number [facility] Department [place] [address] * (ABNORMAL) Basic metabolic panel (06/24/2022 4:10 AM CDT) Sodium 134(L) 135 - 145 mmol/L [facility] Potassium, pl 3.9 3.3 - 4.9 mmol/L [facility] Chloride 94(L) 97 - 110 mmol/L [facility] CO2 25 22 - 32 mmol/L [facility] Anion gap 15 2 - 15 mmol/L [facility] BUN 46(H) 8 - 25 mg/dL [facility] Creatinine 8.83(H) 0.80 - 1.30 mg/dL [facility] Glucose 390(H) 70 - 199 mg/dL [facility] Comment: Interpretive Data Fasting glucose [...] 2017. Calcium 8.5 8.5 - 10.3 mg/dL [facility] Blood 06/24/2022 4:10 AM CDT 06/24/2022 4:34 AM CDT Carey East MD LAB BLOOD ORDERABLES Final Result [facility] [place] [address] * (ABNORMAL) POCT glucose (06/24/2022 1:44 AM CDT) [facility] Glucose, POC 389(H) 70 - 199 mg/dL [facility] Blood 06/24/2022 1:44 AM CDT 06/24/2022 1:44 AM CDT Carey East MD LAB POCT ORDERABLES - DEVICE Final Result Performing Organization Address City/[facility]/ZIP Co de Phone Number [facility] Department [place] [address] * (ABNORMAL) POCT glucose (06/24/2022 1:26 AM CDT) Glucose, POC 428(H) 70 - 199 mg/dL [facility] Blood 06/24/2022 1:26 AM CDT 06/24/2022 1:26 AM CDT Carey East MD LAB POCT ORDERABLES - DEVICE Final Result [facility] Department [place] [address] * (ABNORMAL) POCT glucose (06/23/2022 8:49 PM CDT) Glucose, POC 306(H) 70 - 199 mg/dL [facility] Blood 06/23/2022 8:49 PM CDT 06/23/2022 8:49 PM CDT Carey East MD LAB POCT ORDERABLES - DEVICE Final Result Performing Organization Address City/[facility]/ZIP Co de Phone Number [facility] Department [place] [address] * (ABNORMAL) POCT glucose (06/23/2022 7:45 PM CDT) Glucose, POC 284(H) 70 - 199 mg/dL [facility] Blood 06/23/2022 7:45 PM CDT 06/23/2022 7:45 PM CDT Carey East MD LAB POCT ORDERABLES - DEVICE Final Result [facility] [place] [address] * POCT glucose (06/23/2022 5:57 PM CDT) Glucose, POC 180 70 - 199 mg/dL [facility] Blood 06/23/2022 5:57 PM CDT 06/23/2022 5:57 PM CDT Carey East MD LAB POCT ORDERABLES - DEVICE Final Result Performing Organization Address [facility] Co de Phone Number [facility] [place] [address] * POCT glucose (06/23/2022 4:48 PM CDT) Glucose, POC 152 70 - 199 mg/dL [facility] Blood 06/23/2022 4:48 PM CDT 06/23/2022 4:48 PM CDT Carey East MD LAB POCT ORDERABLES - DEVICE Final Result Performing Organization Address [facility] de Phone Number [place] [address] * POCT glucose (06/23/2022 3:43 PM CDT) Glucose, POC 174 70 - 199 mg/dL [facility] Blood 06/23/2022 3:43 PM CDT 06/23/2022 3:43 PM CDT Carey East MD LAB POCT ORDERABLES - DEVICE Final Result Performing Organization Address [facility] de Phone Number [place] [address] * (ABNORMAL) POCT glucose (06/23/2022 3:01 PM CDT) Glucose, POC 66(L) 70 - 199 mg/dL [facility] Blood 06/23/2022 3:01 PM CDT 06/23/2022 3:01 PM CDT Carey East MD LAB POCT ORDERABLES - DEVICE Final Result Performing Organization Address City/[facility] Co de Phone Number [facility] Department [place] [address] * (ABNORMAL) eGFR (06/23/2022 2:35 PM CDT) Pathologist [facility] eGFR 7(L) 90 - 130 mL/min/1. 73 m2 [facility] Comment: Interpretive Data Reference Interval [...] 2:35 PM CDT 06/23/2022 3:14 PM CDT Carey Esat MD LAB BLOOD ORDERABLES Final Result Performing Organization Address City/[facility] Co de Phone Number ALESSANDRA CARRIONH [facility] Department [place] [address] * (ABNORMAL) Basic metabolic panel (06/23/2022 2:35 PM CDT) Pathologist [facility] Sodium 137 135 - 145 mmol/L [facility] Potassium, pl 3.6 3.3 - 4.9 mmol/L [facility] Chloride 96(L) 97 - 110 mmol/L [facility] CO2 25 22 - 32 mmol/L [facility] Anion gap 16(H) 2 - 15 mmol/L [facility] BUN 45(H) 8 - 25 mg/dL [facility] Creatinine 8.33(H) 0.80 - 1.30 mg/dL [facility] Glucose 55(L) 70 - 199 mg/dL [facility] Comment: Interpretive Data Fasting glucose [...] 2017. Calcium 8.3(L) 8.5 - 10.3 mg/dL [facility] Blood 06/23/2022 2:35 PM CDT 06/23/2022 3:04 PM CDT us Carey East MD LAB BLOOD ORDERABLES Final Result [facility] [place] [address] * Differential, auto (06/23/2022 2:34 PM CDT) [facility] Neutrophil abs 2.7 1.7 - 6.5 K/cumm [facility] Imm gran abs 0.0 0.0 - 0.1 K/cumm [facility] Lymphocyte abs 1.3 0.8 - 3.3 K/cumm [facility] Monocyte abs 0.8 0.2 - 0.8 K/cumm [facility] Eosinophil abs 0.5 0.0 - 0.5 K/cumm [facility] Basophil abs 0.0 0.0 - 0.1 K/cumm [facility] Neutrophil pct 50.3 % [facility] Comment: Interpretive Data Percent cell count reference ranges are not reported, since discordance with absolute values may lead to misinterpretation of CBC data. Current Interpretive Data was last revised on 2017. Imm gran pct 0.6 % [facility] Comment: Interpretive Data Percent cell count reference ranges are not reported, since discordance with absolute values may lead to misinterpretation of CBC data. Current Interpretive Data was last revised on 2017. Lymphocyte pct 23.7 % [facility] Comment: Interpretive Data Percent cell count reference ranges are not reported, since discordance with absolute values may lead to misinterpretation of CBC data. Current Interpretive Data was last revised on 2017. Monocyte pct 15.5 % [facility] Comment: Interpretive Data Percent cell count reference ranges are not reported, since discordance with absolute values may lead to misinterpretation of CBC data. Current Interpretive Data was last revised on 2017. Eosinophil pct 9.2 % [facility] Comment: Interpretive Data Percent cell count reference ranges are not reported, since discordance with absolute values may lead to misinterpretation of CBC data. Current Interpretive Data was last revised on 2017. Basophil pct 0.7 % [facility] Comment: Interpretive Data Percent cell count reference ranges are not reported, since discordance with absolute values may lead to misinterpretation of CBC data. Current Interpretive Data was last revised on 2017. Blood 06/23/2022 2:34 PM CDT 06/23/2022 3:14 PM CDT us Carey East MD LAB BLOOD ORDERABLES Final Result [facility] Department [place] [address] * (ABNORMAL) CBC with auto differential (06/23/2022 2:34 PM CDT) [facility] WBC 5.4 3.8 - 9.9 K/cumm [facility] Hgb 8.2(L) 13.0 - 17.5 g/dL [facility] Comment:Consistent with ita ent history. Hct 25.2(L) 38.9 - 50.3 % [facility] Plt 215 150 - 400 K/cumm [facility] MPV 10.2 9.1 - 12.3 fL [facility] RBC 2.71(L) 4.30 - 5.80 M/cumm [facility] MCV 93.0 81.3 - 96.4 fL [facility] MCH 30.3 27.1 - 33.3 pg [facility] MCHC 32.5 32.3 - 35.7 g/dL [facility] RDW CV 18.7(H) 11.1 - 14.9 % [facility] RDW SD 57.2(H) 35.7 - 48.1 fL [facility] NRBC abs 0.00 0.00 - 0.01 K/cumm [facility] Blood 06/23/2022 2:34 PM CDT 06/23/2022 3:14 PM CDT Carey East MD LAB BLOOD ORDERABLES Final Result [facility] [place] [address] * (ABNORMAL) Troponin I high-sensitivity 2-hour (06/23/2022 2:34 PM CDT) [facility] Trop I hs 3,636(C) <=35 ng/L [facility] Comment: Previous critical value noted within 48 hours ago. Interpretive Data For further [facility] resources including the diagnostic algorithm and an aid in interpretation, copy and paste this link: https://bjhlab.testcatalog.org/show/hsTrop-1 Current Interpretive Data last revised 2020. Trop I hs delta See Comment ng/L [facility] Comment:Inappropriate collec tion time to report a delta. Trop I hs pct delta See Comment % [facility] Comment:Inappropriate collec tion time to report a delta. Trop I hs interp See Comment [facility] Comment:Inappropriate collec tion time to report a delta. Blood 06/23/2022 2:34 PM CDT 06/23/2022 3:14 PM CDT Carey East MD LAB BLOOD ORDERABLES Final Result [facility] Department [place] [address] * (ABNORMAL) POCT glucose (06/23/2022 2:25 PM CDT) Glucose, POC 69(L) 70 - 199 mg/dL [facility] Blood 06/23/2022 2:25 PM CDT 06/23/2022 2:25 PM CDT Carey East MD LAB POCT ORDERABLES - DEVICE Final Result Performing Organization Address City/[facility]/ZIP Co de Phone Number [facility] Department [place] [address] * Critical result callback Cardio chemistry (06/23/2022 2:01 PM CDT) Date Notified [id number] [facility] Time Notified 1454 [facility] Test name Trop I hs base [facility] Called/Read Back Fartun [facility] Credentials RN [facility] Called By karen [facility] Blood 06/23/2022 2:01 PM CDT 06/23/2022 2:16 PM CDT Carey East MD LAB BLOOD ORDERABLES Final Result Performing Organization Address [facility] Co de Phone Number ALESSANRDA CARRION [facility] [place] [address] * (ABNORMAL) eGFR (06/23/2022 2:01 PM CDT) eGFR 7(L) 90 - 130 mL/min/1. 73 m2 [facility] Comment: Interpretive Data Reference Interval Normal ?>/= [...] BLOOD ORDERABLES Final Result Performing Organization Address City/[facility] Co de Phone Number ALESSANDRA CARRION [facility] [place] [address] * (ABNORMAL) Troponin I high-sensitivity series (baseline, 2hr, 4hr, 6hr) (06/23/2022 2:01 PM CDT) Pathologist [facility] Trop I hs 3,653(C) <=35 ng/L [facility] Comment: Interpretive Data For further hscTnI resources including the diagnostic algorithm and an aid in interpretation, copy and paste this link: https://bjhlab.testcatalog.org/show/hsTrop-1 Current Interpretive Data last revised 2020. Blood 06/23/2022 2:01 PM CDT 06/23/2022 2:16 PM CDT Result [facility] Carey East MD LAB BLOOD ORDERABLES Final Result Performing Organization Address [facility]/ZIP Co de Phone Number [facility] [place] [address] * (ABNORMAL) Phosphorus (06/23/2022 2:01 PM CDT) [facility] Phosphorus, pl 5.2(H) 2.3 - 4.5 mg/dL [facility] Blood 06/23/2022 2:01 PM CDT 06/23/2022 2:16 PM CDT Result [facility] Carey East MD LAB BLOOD ORDERABLES Final Result Performing Organization Address City/[facility]/ZIP Co de Phone Number [facility] [place] [address] * (ABNORMAL) Magnesium (06/23/2022 2:01 PM CDT) [facility] Magnesium 2.8(H) 1.4 - 2.5 mg/dL [facility] Blood 06/23/2022 2:01 PM CDT 06/23/2022 2:16 PM CDT Result [facility] Carey East MD LAB BLOOD ORDERABLES Final Result [facility] Department of Laboratories [place], [place] [id number] * (ABNORMAL) CBC without differential (06/23/2022 2:01 PM CDT) Pathologist [facility] WBC 5.9 3.8 - 9.9 K/cumm [facility] Hgb 4.6(C) 13.0 - 17.5 g/dL [facility] Comment:Critical result call ed to and read back by MOUSTAPHA RAMSAY(RN) on 06 23 2022 at 1428 to Erin Bernabe. Hct 14.2(L) 38.9 - 50.3 % [facility] Plt 253 150 - 400 K/cumm [facility] MPV 10.1 9.1 - 12.3 fL [facility] RBC 1.51(L) 4.30 - 5.80 M/cumm [facility] MCV 94.0 81.3 - 96.4 fL [facility] MCH 30.5 27.1 - 33.3 pg [facility] MCHC 32.4 32.3 - 35.7 g/dL [facility] RDW CV 18.4(H) 11.1 - 14.9 % [facility] RDW SD 58.0(H) 35.7 - 48.1 fL [facility] NRBC abs 0.00 0.00 - 0.01 K/cumm [facility] Blood 06/23/2022 2:01 PM CDT 06/23/2022 2:17 PM CDT Narrative [facility] - 06/23/2022 2:29 PM CDT While on heparin infusion us Carey East MD LAB BLOOD ORDERABLES Final Result [facility] [place] [address] * (ABNORMAL) Basic metabolic panel (06/23/2022 2:01 PM CDT) Pathologist [facility] Sodium 136 135 - 145 mmol/L [facility] Potassium, pl 3.4 3.3 - 4.9 mmol/L [facility] Chloride 96(L) 97 - 110 mmol/L [facility] CO2 25 22 - 32 mmol/L [facility] Anion gap 15 2 - 15 mmol/L [facility] BUN 45(H) 8 - 25 mg/dL [facility] Creatinine 8.21(H) 0.80 - 1.30 mg/dL [facility] Glucose 60(L) 70 - 199 mg/dL [facility] Comment: Interpretive Data Fasting glucose [...] 2017. Calcium 8.3(L) 8.5 - 10.3 mg/dL [facility] Blood 06/23/2022 2:01 PM CDT 06/23/2022 2:16 PM CDT Carey East MD LAB BLOOD ORDERABLES Final Result Performing Organization Address City/[facility]/ZIP Co de Phone Number [facility] Department [place] [address] * POCT glucose (06/23/2022 1:42 PM CDT) [facility] Signature Glucose, POC 79 70 - 199 mg/dL [facility] Blood 06/23/2022 1:42 PM CDT 06/23/2022 1:42 PM CDT Carey East MD LAB POCT ORDERABLES - DEVICE Final Result Performing Organization Address City/[facility]/ZIP Co de Phone Number [facility] Department [place] [address] * ECG 12 lead (06/23/2022 1:30 PM CDT) [facility] Ventricular Rate EKG/Min 100 BPM [facility] Atrial Rate 100 BPM [facility] MT-Interval (MSEC) 182 ms [facility] QRS-Interval (MSEC) 106 ms [facility] QT-Interval (MSEC) 380 ms [facility] QTc 490 ms [facility] R [place] -47 degrees [facility] T [place] 105 degrees [facility] Diagnosis Sinus rhythm with Premature supraventricular [...] SAL M.D ([id number]) on 06/23/2022 4:28:23 PM [facility] 06/23/2022 1:30 PM CDT 06/23/2022 4:28 PM CDT Carey East MD ECG ORDERABLES Ann Marie l Result [facility] * POCT glucose (06/23/2022 1:20 PM CDT) [facility] Glucose, POC 88 70 - 199 mg/dL [facility] Blood 06/23/2022 1:20 PM CDT 06/23/2022 1:20 PM CDT Carey East MD LAB POCT ORDERABLES - DEVICE Final Result [facility] Department [place] [address] * POCT glucose (06/23/2022 11:48 AM CDT) Glucose, POC 163 70 - 199 mg/dL [facility] Blood 06/23/2022 11:4 8 AM CDT 06/23/2022 11:48 AM CDT us Carey East MD LAB POCT ORDERABLES - DEVICE Final Result [facility] Department [place] [address] * (ABNORMAL) POCT glucose (06/23/2022 7:28 AM CDT) Glucose, POC 320(H) 70 - 199 mg/dL [facility] Blood 06/23/2022 7:28 AM CDT 06/23/2022 7:28 AM CDT us Catherine Adams MD LAB POCT ORDERABLES - DEVIC E Final Result Performing Organization Address City/[facility]/ZIP Co de Phone Number [facility] Department [place] [address] * (ABNORMAL) Magnesium (06/23/2022 4:21 AM CDT) Magnesium 2.9(H) 1.4 - 2.5 mg/dL [facility] Blood 06/23/2022 4:21 AM CDT 06/23/2022 5:58 AM CDT us Luiz Lewis DO LAB BLOOD ORDERABLES Final Res ult Performing Organization Address City/[facility]/ZIP Co de Phone Number [facility] [place] [address] * (ABNORMAL) CBC without differential (06/23/2022 4:21 AM CDT) [facility] WBC 4.4 3.8 - 9.9 K/cumm [facility] Hgb 8.1(L) 13.0 - 17.5 g/dL [facility] Hct 25.8(L) 38.9 - 50.3 % [facility] Plt 206 150 - 400 K/cumm [facility] MPV 10.4 9.1 - 12.3 fL [facility] RBC 2.76(L) 4.30 - 5.80 M/cumm [facility] MCV 93.5 81.3 - 96.4 fL [facility] MCH 29.3 27.1 - 33.3 pg [facility] MCHC 31.4(L) 32.3 - 35.7 g/dL [facility] RDW CV 18.8(H) 11.1 - 14.9 % [facility] RDW SD 58.8(H) 35.7 - 48.1 fL [facility] NRBC abs 0.00 0.00 - 0.01 K/cumm [facility] Blood 06/23/2022 4:21 AM CDT 06/23/2022 5:58 AM CDT Narrative [facility] - 06/23/2022 6:08 AM CDT While on heparin infusion us Luiz Lewis DO LAB BLOOD ORDERABLES Final Res ult [facility] Department [place] [address] * (ABNORMAL) POCT glucose (06/23/2022 1:38 AM CDT) [facility] Glucose, POC 244(H) 70 - 199 mg/dL [facility] Blood 06/23/2022 1:38 AM CDT 06/23/2022 1:38 AM CDT Catherine Adams MD LAB POCT ORDERABLES - DEVIC E Final Result [facility] [place] [address] * (ABNORMAL) Phosphorus (06/22/2022 9:28 PM CDT) Phosphorus, pl 5.8(H) 2.3 - 4.5 mg/dL [facility] Blood 06/22/2022 9:28 PM CDT 06/22/2022 10:27 PM CDT Catherine Adams MD LAB BLOOD ORDERABLES Final Result Performing Organization Address City/[facility]/[place] [address] * POCT glucose (06/22/2022 9:14 PM CDT) [facility] Signature Glucose, POC 176 70 - 199 mg/dL [facility] Blood 06/22/2022 9:14 PM CDT 06/22/2022 9:14 PM CDT Catherine Adams MD LAB POCT ORDERABLES - DEVIC E Final Result Performing Organization Address City/[facility]/ZIP Co de Phone Number [facility] Department [place] [address] * POCT glucose (06/22/2022 5:37 PM CDT) Glucose, POC 88 70 - 199 mg/dL [facility] Blood 06/22/2022 5:37 PM CDT 06/22/2022 5:37 PM CDT us Catherine Adams MD LAB POCT ORDERABLES - DEVIC E Final Result Performing Organization Address City/[facility]/ZIP Co de Phone Number [facility] [place] [address] * (ABNORMAL) eGFR (06/22/2022 3:21 PM CDT) Pathologist [facility] eGFR 8(L) 90 - 130 mL/min/1. 73 m2 [facility] Comment: Interpretive Data Reference Interval Normal ?>/= [...] NP LAB BLOOD ORDERABLES Final Re sult [facility] Department of Laboratories [place], [place] [id number] * Differential, auto (06/22/2022 3:21 PM CDT) Pathologist [facility] Neutrophil abs 2.5 1.7 - 6.5 K/cumm [facility] Imm gran abs 0.0 0.0 - 0.1 K/cumm [facility] Lymphocyte abs 1.2 0.8 - 3.3 K/cumm [facility] Monocyte abs 0.8 0.2 - 0.8 K/cumm [facility] Eosinophil abs 0.5 0.0 - 0.5 K/cumm [facility] Basophil abs 0.0 0.0 - 0.1 K/cumm [facility] Neutrophil pct 51.2 % [facility] Comment: Interpretive Data Percent cell count reference ranges are not reported, since discordance with absolute values may lead to misinterpretation of CBC data. Current Interpretive Data was last revised on 2017. Imm gran pct 0.4 % [facility] Comment: Interpretive Data Percent cell count reference ranges are not reported, since discordance with absolute values may lead to misinterpretation of CBC data. Current Interpretive Data was last revised on 2017. Lymphocyte pct 23.3 % [facility] Comment: Interpretive Data Percent cell count reference ranges are not reported, since discordance with absolute values may lead to misinterpretation of CBC data. Current Interpretive Data was last revised on 2017. Monocyte pct 15.4 % [facility] Comment: Interpretive Data Percent cell count reference ranges are not reported, since discordance with absolute values may lead to misinterpretation of CBC data. Current Interpretive Data was last revised on 2017. Eosinophil pct 9.3 % [facility] Comment: Interpretive Data Percent cell count reference ranges are not reported, since discordance with absolute values may lead to misinterpretation of CBC data. Current Interpretive Data was last revised on 2017. Basophil pct 0.4 % [facility] Comment: Interpretive Data Percent cell count reference ranges are not reported, since discordance with absolute values may lead to misinterpretation of CBC data. Current Interpretive Data was last revised on 2017. Blood 06/22/2022 3:21 PM CDT 06/22/2022 3:52 PM CDT us Catherine Adams MD LAB BLOOD ORDERABLES Final Result [facility] Department [place] [address] * (ABNORMAL) CBC with auto differential (06/22/2022 3:21 PM CDT) Pathologist [facility] WBC 4.9 3.8 - 9.9 K/cumm [facility] Hgb 7.8(L) 13.0 - 17.5 g/dL [facility] Hct 24.1(L) 38.9 - 50.3 % [facility] Plt 183 150 - 400 K/cumm [facility] MPV 10.2 9.1 - 12.3 fL [facility] RBC 2.54(L) 4.30 - 5.80 M/cumm [facility] MCV 94.9 81.3 - 96.4 fL [facility] MCH 30.7 27.1 - 33.3 pg [facility] MCHC 32.4 32.3 - 35.7 g/dL [facility] RDW CV 18.5(H) 11.1 - 14.9 % [facility] RDW SD 58.2(H) 35.7 - 48.1 fL [facility] NRBC abs 0.00 0.00 - 0.01 K/cumm [facility] Blood 06/22/2022 3:21 PM CDT 06/22/2022 3:52 PM CDT us Catherine Adams MD LAB BLOOD ORDERABLES Final Result Performing Organization Address [facility]/ZIP Co de Phone Number [facility] Department [place] [address] * (ABNORMAL) Magnesium (06/22/2022 3:21 PM CDT) [facility] Magnesium 2.9(H) 1.4 - 2.5 mg/dL [facility] Blood 06/22/2022 3:21 PM CDT 06/22/2022 3:52 PM CDT us Marcelina Lo NP LAB BLOOD ORDERABLES Final Re sult [facility] Department [place] [address] * (ABNORMAL) Comprehensive metabolic panel (06/22/2022 3:21 PM CDT) Sodium 138 135 - 145 mmol/L [facility] Potassium, pl 3.7 3.3 - 4.9 mmol/L [facility] Chloride 99 97 - 110 mmol/L [facility] CO2 27 22 - 32 mmol/L [facility] Anion gap 12 2 - 15 mmol/L [facility] BUN 42(H) 8 - 25 mg/dL [facility] Creatinine 7.25(H) 0.80 - 1.30 mg/dL [facility] Glucose 103 70 - 199 mg/dL [facility] Comment: Interpretive Data Fasting glucose [...] 2017. Calcium 8.6 8.5 - 10.3 mg/dL [facility] Bilirubin, total 0.4 0.1 - 1.2 mg/dL [facility] Protein, pl 6.1(L) 6.5 - 8.5 g/dL [facility] Albumin 2.9(L) 3.5 - 5.0 g/dL [facility] Alk phos 112 40 - 130 Units/L [facility] ALT 31 7 - 55 Units/L [facility] AST 41 10 - 50 Units/L [facility] Blood 06/22/2022 3:21 PM CDT 06/22/2022 3:52 PM CDT us Marcelina Lo [employer] LAB BLOOD ORDERABLES Final Re sult [facility] [place] [address] * POCT glucose (06/22/2022 11:38 AM CDT) Glucose, POC 162 70 - 199 mg/dL [facility] Blood 06/22/2022 11:3 8 AM CDT 06/22/2022 11:38 AM CDT Catherine Adams MD LAB POCT ORDERABLES - [place] [address] * POCT glucose (06/22/2022 10:46 AM CDT) Glucose, POC 197 70 - 199 mg/dL [facility] Blood 06/22/2022 10:4 6 AM CDT 06/22/2022 10:46 AM CDT Catherine Adams MD LAB POCT ORDERABLES - DEVIC E Final Result Performing Organization Address City/[facility] [place] [address] * (ABNORMAL) POCT glucose (06/22/2022 9:07 AM CDT) Glucose, POC 313(H) 70 - 199 mg/dL [facility] Blood 06/22/2022 9:07 AM CDT 06/22/2022 9:07 AM CDT Catherine Adams MD LAB POCT ORDERABLES - DEVIC E Final Result Performing Organization Address City/[facility]/ZIP Co de Phone Number [place] [address] * (ABNORMAL) POCT glucose (06/22/2022 7:40 AM CDT) Glucose, POC 364(H) 70 - 199 mg/dL [facility] Blood 06/22/2022 7:40 AM CDT 06/22/2022 7:40 AM CDT us Catherine Adams MD LAB POCT ORDERABLES - DEVIC E Final Result Performing Organization Address City/[facility]/ZIP Co de Phone Number [facility] Department [place] [address] * (ABNORMAL) POCT glucose (06/22/2022 7:38 AM CDT) Glucose, POC 318(H) 70 - 199 mg/dL [facility] Blood 06/22/2022 7:38 AM CDT 06/22/2022 7:38 AM CDT Catherine Adams MD LAB POCT ORDERABLES - DEVIC E Final Result Performing Organization Address City/[facility] Co de Phone Number [facility] Department [place] [address] * (ABNORMAL) POCT glucose (06/22/2022 5:54 AM CDT) Glucose, POC 370(H) 70 - 199 mg/dL [facility] Blood 06/22/2022 5:54 AM CDT 06/22/2022 5:54 AM CDT Catherine Adams MD LAB POCT ORDERABLES - DEVIC E Final Result Performing Organization Address City/State/[facility] Co de Phone Number [facility] [place] [address] * (ABNORMAL) eGFR (06/21/2022 9:55 PM CDT) eGFR 10(L) 90 - 130 mL/min/1. 73 m2 [facility] Comment: Interpretive Data Reference Interval [...] 06/21/2022 10:14 PM CDT us Marcelina Lo NP LAB BLOOD ORDERABLES Final Re sult [facility] [place] [address] * Differential, auto (06/21/2022 9:55 PM CDT) [facility] Neutrophil abs 3.7 1.7 - 6.5 K/cumm [facility] Imm gran abs 0.0 0.0 - 0.1 K/cumm [facility] Lymphocyte abs 1.0 0.8 - 3.3 K/cumm [facility] Monocyte abs 0.8 0.2 - 0.8 K/cumm [facility] Eosinophil abs 0.3 0.0 - 0.5 K/cumm [facility] Basophil abs 0.0 0.0 - 0.1 K/cumm [facility] Neutrophil pct 63.3 % [facility] Comment: Interpretive Data Percent cell count reference ranges are not reported, since discordance with absolute values may lead to misinterpretation of CBC data. Current Interpretive Data was last revised on 2017. Imm gran pct 0.5 % [facility] Comment: Interpretive Data Percent cell count reference ranges are not reported, since discordance with absolute values may lead to misinterpretation of CBC data. Current Interpretive Data was last revised on 2017. Lymphocyte pct 16.3 % [facility] Comment: Interpretive Data Percent cell count reference ranges are not reported, since discordance with absolute values may lead to misinterpretation of CBC data. Current Interpretive Data was last revised on 2017. Monocyte pct 14.3 % [facility] Comment: Interpretive Data Percent cell count reference ranges are not reported, since discordance with absolute values may lead to misinterpretation of CBC data. Current Interpretive Data was last revised on 2017. Eosinophil pct 5.1 % [facility] Comment: Interpretive Data Percent cell count reference ranges are not reported, since discordance with absolute values may lead to misinterpretation of CBC data. Current Interpretive Data was last revised on 2017. Basophil pct 0.5 % [facility] Comment: Interpretive Data Percent cell count reference ranges are not reported, since discordance with absolute values may lead to misinterpretation of CBC data. Current Interpretive Data was last revised on 2017. Blood 06/21/2022 9:55 PM CDT 06/21/2022 10:14 PM CDT us Catherine Adams MD LAB BLOOD ORDERABLES Final Result [facility] Department [place] [address] * (ABNORMAL) POCT glucose (06/21/2022 9:55 PM CDT) [facility] Glucose, POC 272(H) 70 - 199 mg/dL [facility] Blood 06/21/2022 9:55 PM CDT 06/21/2022 9:55 PM CDT Catherine Adams MD LAB POCT ORDERABLES - DEVIC E Final Result Performing Organization Address [facility] Co de Phone Number [facility] [place] [address] * (ABNORMAL) CBC with auto differential (06/21/2022 9:55 PM CDT) [facility] WBC 5.9 3.8 - 9.9 K/cumm [facility] Hgb 7.5(L) 13.0 - 17.5 g/dL [facility] Hct 23.6(L) 38.9 - 50.3 % [facility] Plt 174 150 - 400 K/cumm [facility] MPV 9.7 9.1 - 12.3 fL [facility] RBC 2.51(L) 4.30 - 5.80 M/cumm [facility] MCV 94.0 81.3 - 96.4 fL [facility] MCH 29.9 27.1 - 33.3 pg [facility] MCHC 31.8(L) 32.3 - 35.7 g/dL [facility] RDW CV 18.9(H) 11.1 - 14.9 % [facility] RDW SD 60.0(H) 35.7 - 48.1 fL [facility] NRBC abs 0.02(H) 0.00 - 0.01 K/cumm [facility] Blood 06/21/2022 9:55 PM CDT 06/21/2022 10:14 PM CDT Catherine Adams MD LAB BLOOD ORDERABLES Final Result Performing Organization Address City/[facility]/ZIP Co de Phone Number [facility] [place] [address] * Lactate (06/21/2022 9:55 PM CDT) Lactate 0.8 0.7 - 2.0 mmol/L [facility] Blood 06/21/2022 9:55 PM CDT 06/21/2022 10:14 PM CDT Catherine Adams MD LAB BLOOD ORDERABLES Final Result [facility] [place] [address] * (ABNORMAL) Triglycerides (06/21/2022 9:55 PM CDT) Triglycerides 183(H) <=149 mg/dL [facility] Comment: Interpretive Data Ages < [...] PM CDT 06/21/2022 10:15 PM CDT Narrative [facility] - 06/21/2022 10:45 PM CDT While on propofol infusion. Catherine Adams MD LAB BLOOD ORDERABLES Final Result Performing Organization Address [facility] Co de Phone Number [facility] [place] [address] * (ABNORMAL) Phosphorus (06/21/2022 9:55 PM CDT) Phosphorus, pl 4.8(H) 2.3 - 4.5 mg/dL [facility] Blood 06/21/2022 9:55 PM CDT 06/21/2022 10:15 PM CDT Marcelina Lo [employer] LAB BLOOD ORDERABLES Final Re sult Performing Organization Address [facility] Phone Number [facility] [place] [address] * (ABNORMAL) Lipase (06/21/2022 9:55 PM CDT) Lipase 227(H) 10 - 99 Units/L [facility] Blood 06/21/2022 9:55 PM CDT 06/21/2022 10:15 PM CDT Marcelina Lo [employer] [facility] [employer] LAB BLOOD ORDERABLES Final Re sult Performing Organization Address [facility] Co de Phone Number [facility] [place] [address] * (ABNORMAL) Magnesium (06/21/2022 9:55 PM CDT) Magnesium 2.8(H) 1.4 - 2.5 mg/dL [facility] Blood 06/21/2022 9:55 PM CDT 06/21/2022 10:14 PM CDT Marcelina Lo [employer] [facility] [employer] LAB BLOOD ORDERABLES Final Re sult [facility] Department [place] [address] * (ABNORMAL) Comprehensive metabolic panel (06/21/2022 9:55 PM CDT) Sodium 136 135 - 145 mmol/L [facility] Potassium, pl 4.0 3.3 - 4.9 mmol/L [facility] Chloride 98 97 - 110 mmol/L [facility] CO2 24 22 - 32 mmol/L [facility] Anion gap 14 2 - 15 mmol/L [facility] BUN 41(H) 8 - 25 mg/dL [facility] Creatinine 6.03(H) 0.80 - 1.30 mg/dL [facility] Glucose 276(H) 70 - 199 mg/dL [facility] Comment: Interpretive Data Fasting glucose [...] 2017. Calcium 8.4(L) 8.5 - 10.3 mg/dL [facility] Bilirubin, total 0.5 0.1 - 1.2 mg/dL [facility] Protein, pl 5.9(L) 6.5 - 8.5 g/dL [facility] Albumin 2.7(L) 3.5 - 5.0 g/dL [facility] Alk phos 111 40 - 130 Units/L [facility] ALT 32 7 - 55 Units/L [facility] AST 48 10 - 50 Units/L [facility] Blood 06/21/2022 9:55 PM CDT 06/21/2022 10:14 PM CDT us Marcelina Lo [employer] [facility] [employer] LAB BLOOD ORDERABLES Final Re sult [facility] [place] [address] * (ABNORMAL) Differential, auto (06/21/2022 5:23 PM CDT) Neutrophil abs 4.1 1.7 - 6.5 K/cumm [facility] Imm gran abs 0.1 0.0 - 0.1 K/cumm [facility] Lymphocyte abs 1.2 0.8 - 3.3 K/cumm [facility] Monocyte abs 0.9(H) 0.2 - 0.8 K/cumm [facility] Eosinophil abs 0.3 0.0 - 0.5 K/cumm [facility] Basophil abs 0.0 0.0 - 0.1 K/cumm [facility] Neutrophil pct 62.4 % [facility] Comment: Interpretive Data Percent cell count reference ranges are not reported, since discordance with absolute values may lead to misinterpretation of CBC data. Current Interpretive Data was last revised on 2017. Imm gran pct 0.8 % [facility] Comment: Interpretive Data Percent cell count reference ranges are not reported, since discordance with absolute values may lead to misinterpretation of CBC data. Current Interpretive Data was last revised on 2017. Lymphocyte pct 18.5 % [facility] Comment: Interpretive Data Percent cell count reference ranges are not reported, since discordance with absolute values may lead to misinterpretation of CBC data. Current Interpretive Data was last revised on 2017. Monocyte pct 13.7 % [facility] Comment: Interpretive Data Percent cell count reference ranges are not reported, since discordance with absolute values may lead to misinterpretation of CBC data. Current Interpretive Data was last revised on 2017. Eosinophil pct 4.0 % [facility] Comment: Interpretive Data Percent cell count reference ranges are not reported, since discordance with absolute values may lead to misinterpretation of CBC data. Current Interpretive Data was last revised on 2017. Basophil pct 0.6 % [facility] Comment: Interpretive Data Percent cell count reference ranges are not reported, since discordance with absolute values may lead to misinterpretation of CBC data. Current Interpretive Data was last revised on 2017. Blood 06/21/2022 5:23 PM CDT 06/21/2022 5:45 PM CDT Catherine Adams MD LAB BLOOD ORDERABLES Final Result Performing Organization Address City/[facility]/ZIP Co de Phone Number [facility] [place] [address] * (ABNORMAL) CBC with auto differential (06/21/2022 5:23 PM CDT) Pathologist [facility] WBC 6.5 3.8 - 9.9 K/cumm [facility] Hgb 7.5(L) 13.0 - 17.5 g/dL [facility] Hct 23.0(L) 38.9 - 50.3 % [facility] Plt 177 150 - 400 K/cumm [facility] MPV 9.8 9.1 - 12.3 fL [facility] RBC 2.44(L) 4.30 - 5.80 M/cumm [facility] MCV 94.3 81.3 - 96.4 fL [facility] MCH 30.7 27.1 - 33.3 pg [facility] MCHC 32.6 32.3 - 35.7 g/dL [facility] RDW CV 19.0(H) 11.1 - 14.9 % [facility] RDW SD 60.9(H) 35.7 - 48.1 fL [facility] NRBC abs 0.00 0.00 - 0.01 K/cumm [facility] Blood 06/21/2022 5:23 PM CDT 06/21/2022 5:45 PM CDT Catherine Adams MD LAB BLOOD ORDERABLES Final Result Performing Organization Address City/[facility]/ZIP Co de Phone Number [facility] [place] [address] * POCT glucose (06/21/2022 4:08 PM CDT) Glucose, POC 138 70 - 199 mg/dL [facility] Blood 06/21/2022 4:08 PM CDT 06/21/2022 4:08 PM CDT us Catherine Adams MD LAB POCT ORDERABLES - DEVIC E Final Result [facility] Department [place] [address] * [place] Modified Barium Swallow W Video [...] MD IMG FLUOROSCOPY PROCEDURES Final Result * RHIA Evaluate and Treat (VFSS) (06/21/2022 2:02 PM [...] reported General Information Adelia Garvin Jr. 06/21/22 RHIA Received On: 06/21/22 General Observations: presents alert, [...] Administered: Thin liquids (via spoon & straw), [place] thickened liquids (via spoon & straw), Purees, Honey thickened liquids via spoon, Solids. Patient took large sips requiring more than 1 swallow even when cued for small sip. Administered consistencies contain barium product. Thin Liquids: Laryngeal Penetration: Present Aspiration Present: No Penetration Aspiration Scale-Thin: 4-Material enters the airway, contacts the vocal folds and is ejected from the airway [place] Thickened Liquids: Laryngeal Penetration: Present Aspiration Present: No Penetration Aspiration Scale-[place]: 2-Material enters the airway, remains above the [...] treatment goals and details, if indicated. Plan RHIA Frequency of Services: 2-3x/wk [facility]IA Recommendation (Add'l Services): Inpatient Rehab Facility Next Visit Plan: treatment/therapy Additional Referrals: none at this time Discharge Summary Statement If this is the last swallow therapy visit, this serves as the discharge summary. us Catherine Adams MD RHIA ORDERABLES Final Resul t * POCT glucose (06/21/2022 12:00 PM CDT) Pathologist [facility] Glucose, POC 157 70 - 199 mg/dL [facility] Blood 06/21/2022 12:0 0 PM CDT 06/21/2022 12:00 PM CDT us Catherine Adams MD LAB POCT ORDERABLES - DEVIC E Final Result Performing Organization Address City/State/[facility] Co de Phone Number [facility] [place] [address] * (ABNORMAL) eGFR (06/21/2022 8:38 AM CDT) [facility] eGFR 12(L) 90 - 130 mL/min/1. 73 m2 [facility] Comment: Interpretive Data Reference Interval [...] 06/21/2022 9:17 AM CDT us Marcelina Lo [employer] [facility] [employer] LAB BLOOD ORDERABLES Final Re sult [facility] Department [place] [address] * Differential, auto (06/21/2022 8:38 AM CDT) Neutrophil abs 3.3 1.7 - 6.5 K/cumm [facility] Imm gran abs 0.0 0.0 - 0.1 K/cumm [facility] Lymphocyte abs 1.2 0.8 - 3.3 K/cumm [facility] Monocyte abs 0.7 0.2 - 0.8 K/cumm [facility] Eosinophil abs 0.1 0.0 - 0.5 K/cumm [facility] Basophil abs 0.1 0.0 - 0.1 K/cumm [facility] Neutrophil pct 60.8 % [facility] Comment: Interpretive Data Percent cell count reference ranges are not reported, since discordance with absolute values may lead to misinterpretation of CBC data. Current Interpretive Data was last revised on 2017. Imm gran pct 0.7 % [facility] Comment: Interpretive Data Percent cell count reference ranges are not reported, since discordance with absolute values may lead to misinterpretation of CBC data. Current Interpretive Data was last revised on 2017. Lymphocyte pct 22.0 % [facility] Comment: Interpretive Data Percent cell count reference ranges are not reported, since discordance with absolute values may lead to misinterpretation of CBC data. Current Interpretive Data was last revised on 2017. Monocyte pct 13.7 % [facility] Comment: Interpretive Data Percent cell count reference ranges are not reported, since discordance with absolute values may lead to misinterpretation of CBC data. Current Interpretive Data was last revised on 2017. Eosinophil pct 1.9 % [facility] Comment: Interpretive Data Percent cell count reference ranges are not reported, since discordance with absolute values may lead to misinterpretation of CBC data. Current Interpretive Data was last revised on 2017. Basophil pct 0.9 % [facility] Comment: Interpretive Data Percent cell count reference ranges are not reported, since discordance with absolute values may lead to misinterpretation of CBC data. Current Interpretive Data was last revised on 2017. Blood 06/21/2022 8:38 AM CDT 06/21/2022 9:10 AM CDT Catherine Adams MD LAB BLOOD ORDERABLES Final Result Performing Organization Address City/[facility]/ZIP Co de Phone Number [facility] Department [place] [address] * (ABNORMAL) CBC with auto differential (06/21/2022 8:38 AM CDT) Pathologist [facility] WBC 5.4 3.8 - 9.9 K/cumm [facility] Hgb 9.0(L) 13.0 - 17.5 g/dL [facility] Hct 27.8(L) 38.9 - 50.3 % [facility] Plt 171 150 - 400 K/cumm [facility] MPV 9.8 9.1 - 12.3 fL [facility] RBC 3.01(L) 4.30 - 5.80 M/cumm [facility] MCV 92.4 81.3 - 96.4 fL [facility] MCH 29.9 27.1 - 33.3 pg [facility] MCHC 32.4 32.3 - 35.7 g/dL [facility] RDW CV 19.9(H) 11.1 - 14.9 % [facility] RDW SD 63.2(H) 35.7 - 48.1 fL [facility] NRBC abs 0.02(H) 0.00 - 0.01 K/cumm [facility] Blood 06/21/2022 8:38 AM CDT 06/21/2022 9:10 AM CDT Catherine Adams MD LAB BLOOD ORDERABLES Final Result Performing Organization Address City/[facility]/ZIP Co de Phone Number [facility] Department [place] [address] * (ABNORMAL) Magnesium (06/21/2022 8:38 AM CDT) Magnesium 2.8(H) 1.4 - 2.5 mg/dL [facility] Blood 06/21/2022 8:38 AM CDT 06/21/2022 9:10 AM CDT us Marcelina Lo [employer] [facility] [employer] LAB BLOOD ORDERABLES Final Re sult [facility] Department [place] [address] * (ABNORMAL) Comprehensive metabolic panel (06/21/2022 8:38 AM CDT) Pathologist [facility] Sodium 139 135 - 145 mmol/L [facility] Potassium, pl 4.0 3.3 - 4.9 mmol/L [facility] Chloride 101 97 - 110 mmol/L [facility] CO2 27 22 - 32 mmol/L [facility] Anion gap 11 2 - 15 mmol/L [facility] BUN 36(H) 8 - 25 mg/dL [facility] Creatinine 5.26(H) 0.80 - 1.30 mg/dL [facility] Glucose 199 70 - 199 mg/dL [facility] Comment: Interpretive Data Fasting glucose [...] 2017. Calcium 8.4(L) 8.5 - 10.3 mg/dL [facility] Bilirubin, total 0.4 0.1 - 1.2 mg/dL [facility] Protein, pl 5.6(L) 6.5 - 8.5 g/dL [facility] Albumin 2.7(L) 3.5 - 5.0 g/dL [facility] Alk phos 115 40 - 130 Units/L [facility] ALT 28 7 - 55 Units/L [facility] AST 52(H) 10 - 50 Units/L [facility] Blood 06/21/2022 8:3 8 AM CDT 06/21/2022 9:10 AM CDT us Marcelina Lo [employer] [facility] [employer] LAB BLOOD ORDERABLES Final Re sult [facility] [place] [address] * POCT glucose (06/21/2022 8:34 AM CDT) Glucose, POC 199 70 - 199 mg/dL [facility] Blood 06/21/2022 8:34 AM CDT 06/21/2022 8:34 AM CDT Catherine Adams MD LAB POCT ORDERABLES - DEVIC E Final Result Performing Organization Address [facility] Co de Phone Number [facility] Department [place] [address] * (ABNORMAL) POCT glucose (06/21/2022 5:30 AM CDT) Glucose, POC 270(H) 70 - 199 mg/dL [facility] Blood 06/21/2022 5:30 AM CDT 06/21/2022 5:30 AM CDT Catherine Adams MD LAB POCT ORDERABLES - DEVIC E Final Result Performing Organization Address City/[facility] Co de Phone Number [facility] Department [place] [address] * (ABNORMAL) POCT glucose (06/21/2022 12:22 AM CDT) Glucose, POC 231(H) 70 - 199 mg/dL [facility] Blood 06/21/2022 12:2 2 AM CDT 06/21/2022 12:22 AM CDT Catherine Adams MD LAB POCT ORDERABLES - DEVIC E Final Result [facility] Department [place] [address] * Differential, auto (06/21/2022 12:21 AM CDT) Pathologist [facility] Neutrophil abs 4.4 1.7 - 6.5 K/cumm [facility] Imm gran abs 0.1 0.0 - 0.1 K/cumm [facility] Lymphocyte abs 1.2 0.8 - 3.3 K/cumm [facility] Monocyte abs 0.8 0.2 - 0.8 K/cumm [facility] Eosinophil abs 0.1 0.0 - 0.5 K/cumm [facility] Basophil abs 0.0 0.0 - 0.1 K/cumm [facility] Neutrophil pct 67.5 % [facility] Comment: Interpretive Data Percent cell count reference ranges are not reported, since discordance with absolute values may lead to misinterpretation of CBC data. Current Interpretive Data was last revised on 2017. Imm gran pct 0.9 % [facility] Comment: Interpretive Data Percent cell count reference ranges are not reported, since discordance with absolute values may lead to misinterpretation of CBC data. Current Interpretive Data was last revised on 2017. Lymphocyte pct 18.3 % [facility] Comment: Interpretive Data Percent cell count reference ranges are not reported, since discordance with absolute values may lead to misinterpretation of CBC data. Current Interpretive Data was last revised on 2017. Monocyte pct 11.7 % [facility] Comment: Interpretive Data Percent cell count reference ranges are not reported, since discordance with absolute values may lead to misinterpretation of CBC data. Current Interpretive Data was last revised on 2017. Eosinophil pct 1.1 % [facility] Comment: Interpretive Data Percent cell count reference ranges are not reported, since discordance with absolute values may lead to misinterpretation of CBC data. Current Interpretive Data was last revised on 2017. Basophil pct 0.5 % [facility] Comment: Interpretive Data Percent cell count reference ranges are not reported, since discordance with absolute values may lead to misinterpretation of CBC data. Current Interpretive Data was last revised on 2017. Blood 06/21/2022 12:2 1 AM CDT 06/21/2022 12:50 AM CDT us Catherine Adams MD LAB BLOOD ORDERABLES Final Result [facility] [place] [address] * (ABNORMAL) CBC with auto differential (06/21/2022 12:21 AM CDT) WBC 6.5 3.8 - 9.9 K/cumm [facility] Hgb 7.4(L) 13.0 - 17.5 g/dL [facility] Hct 23.6(L) 38.9 - 50.3 % [facility] Plt 179 150 - 400 K/cumm [facility] MPV 9.8 9.1 - 12.3 fL [facility] RBC 2.49(L) 4.30 - 5.80 M/cumm [facility] MCV 94.8 81.3 - 96.4 fL [facility] MCH 29.7 27.1 - 33.3 pg [facility] MCHC 31.4(L) 32.3 - 35.7 g/dL [facility] RDW CV 20.0(H) 11.1 - 14.9 % [facility] RDW SD 66.2(H) 35.7 - 48.1 fL [facility] NRBC abs 0.04(H) 0.00 - 0.01 K/cumm [facility] Blood 06/21/2022 12:2 1 AM CDT 06/21/2022 12:50 AM CDT us Catherine Adams MD LAB BLOOD ORDERABLES Final Result Performing Organization Address [facility] Co de Phone Number [facility] Department [place] [address] * POCT glucose (06/20/2022 7:49 PM CDT) Glucose, POC 177 70 - 199 mg/dL [facility] Blood 06/20/2022 7:49 PM CDT 06/20/2022 7:49 PM CDT us Catherine Adams MD LAB POCT ORDERABLES - DEVIC E Final Result Performing Organization Address [facility] de Phone Number [facility] Department [place] [address] * (ABNORMAL) eGFR (06/20/2022 7:46 PM CDT) Pathologist [facility] eGFR 18(L) 90 - 130 mL/min/1. 73 m2 [facility] Comment: Interpretive Data Reference Interval [...] 06/20/2022 8:15 PM CDT us Marcelina Lo [employer] [facility] [employer] LAB BLOOD ORDERABLES Final Re sult Performing Organization Address [facility]/ZIP Co de Phone Number [facility] Department [place] [address] * Lactate (06/20/2022 7:46 PM CDT) Lactate 1.0 0.7 - 2.0 mmol/L [facility] Blood 06/20/2022 7:46 PM CDT 06/20/2022 8:14 PM CDT Catherine Adams MD LAB BLOOD ORDERABLES Final Result Performing Organization Address [facility] de Phone Number [facility] Department [place] [address] * (ABNORMAL) Triglycerides (06/20/2022 7:46 PM CDT) Triglycerides 181(H) <=149 mg/dL [facility] Comment: Interpretive Data Ages < [...] PM CDT 06/20/2022 8:14 PM CDT Narrative [facility] - 06/20/2022 8:51 PM CDT While on propofol infusion. Catherine Adams MD LAB BLOOD ORDERABLES Final Result Performing Organization Address [facility] Co de Phone Number [facility] Department [place] [address] * Phosphorus (06/20/2022 7:46 PM CDT) Pathologist [facility] Phosphorus, pl 2.9 2.3 - 4.5 mg/dL [facility] Comment:Repeated and Verifie d Blood 06/20/2022 7:46 PM CDT 06/20/2022 8:14 PM CDT us Marcelina Lo NP LAB BLOOD ORDERABLES Final Re sult Performing Organization Address [facility] Co de Phone Number [facility] Department [place] [address] * (ABNORMAL) Beta-hydroxybutyrate (06/20/2022 7:46 PM CDT) Beta-Hydroxybut yrate 2.5(H) 0.0 - 0.5 mmol/L [facility] Blood 06/20/2022 7:46 PM CDT 06/20/2022 8:59 PM CDT Marcelina Lo [facility] [facility] [facility] [employer] LAB BLOOD ORDERABLES Final Re sult Performing Organization Address [facility] Co de Phone Number [facility] [place] [address] * Lipase (06/20/2022 7:46 PM CDT) Pathologist [facility] Lipase 88 10 - 99 Units/L [facility] Blood 06/20/2022 7:46 PM CDT 06/20/2022 8:14 PM CDT Marcelina Lo [employer] [facility] [facility] LAB BLOOD ORDERABLES Final Re sult Performing Organization Address [facility] [place] [address] * (ABNORMAL) Magnesium (06/20/2022 7:46 PM CDT) [facility] Magnesium 2.6(H) 1.4 - 2.5 mg/dL [facility] Blood 06/20/2022 7:46 PM CDT 06/20/2022 8:15 PM CDT Marcelina Lo [employer] [facility] LAB BLOOD ORDERABLES Final Re sult Performing Organization Address [facility] Co de Phone Number [place] [address] * (ABNORMAL) Comprehensive metabolic panel (06/20/2022 7:46 PM CDT) Pathologist [facility] Sodium 137 135 - 145 mmol/L [facility] Potassium, pl 4.9 3.3 - 4.9 mmol/L [facility] Chloride 102 97 - 110 mmol/L [facility] CO2 23 22 - 32 mmol/L [facility] Anion gap 12 2 - 15 mmol/L [facility] BUN 26(H) 8 - 25 mg/dL [facility] Creatinine 3.87(H) 0.80 - 1.30 mg/dL [facility] Glucose 188 70 - 199 mg/dL [facility] Comment: Interpretive Data Fasting glucose [...] 2017. Calcium 8.5 8.5 - 10.3 mg/dL [facility] Bilirubin, total 0.6 0.1 - 1.2 mg/dL [facility] Protein, pl 5.7(L) 6.5 - 8.5 g/dL [facility] Albumin 2.7(L) 3.5 - 5.0 g/dL [facility] Alk phos 123 40 - 130 Units/L [facility] ALT 29 7 - 55 Units/L [facility] AST 61(H) 10 - 50 Units/L [facility] Blood 06/20/2022 7:46 PM CDT 06/20/2022 8:15 PM CDT us Marcelina Lo [facility] [facility] [facility] LAB BLOOD ORDERABLES Final Re sult [facility] [place] [address] * (ABNORMAL) Differential, auto (06/20/2022 6:18 PM CDT) Neutrophil abs 6.2 1.7 - 6.5 K/cumm [facility] Imm gran abs 0.1 0.0 - 0.1 K/cumm [facility] Lymphocyte abs 0.9 0.8 - 3.3 K/cumm [facility] Monocyte abs 1.1(H) 0.2 - 0.8 K/cumm [facility] Eosinophil abs 0.0 0.0 - 0.5 K/cumm [facility] Basophil abs 0.0 0.0 - 0.1 K/cumm [facility] Neutrophil pct 74.5 % [facility] Comment: Interpretive Data Percent cell count reference ranges are not reported, since discordance with absolute values may lead to misinterpretation of CBC data. Current Interpretive Data was last revised on 2017. Imm gran pct 0.7 % [facility] Comment: Interpretive Data Percent cell count reference ranges are not reported, since discordance with absolute values may lead to misinterpretation of CBC data. Current Interpretive Data was last revised on 2017. Lymphocyte pct 11.0 % [facility] Comment: Interpretive Data Percent cell count reference ranges are not reported, since discordance with absolute values may lead to misinterpretation of CBC data. Current Interpretive Data was last revised on 2017. Monocyte pct 12.8 % [facility] Comment: Interpretive Data Percent cell count reference ranges are not reported, since discordance with absolute values may lead to misinterpretation of CBC data. Current Interpretive Data was last revised on 2017. Eosinophil pct 0.5 % [facility] Comment: Interpretive Data Percent cell count reference ranges are not reported, since discordance with absolute values may lead to misinterpretation of CBC data. Current Interpretive Data was last revised on 2017. Basophil pct 0.5 % [facility] Comment: Interpretive Data Percent cell count reference ranges are not reported, since discordance with absolute values may lead to misinterpretation of CBC data. Current Interpretive Data was last revised on 2017. Blood 06/20/2022 6:18 PM CDT 06/20/2022 7:08 PM CDT us Tyra De La Torre MD LAB BLOOD ORDERABLES Final Resu lt [facility] [place] [address] * (ABNORMAL) CBC with auto differential (06/20/2022 6:18 PM CDT) [facility] WBC 8.3 3.8 - 9.9 K/cumm [facility] Hgb 7.7(L) 13.0 - 17.5 g/dL [facility] Hct 23.7(L) 38.9 - 50.3 % [facility] Plt 188 150 - 400 K/cumm [facility] MPV 9.8 9.1 - 12.3 fL [facility] RBC 2.55(L) 4.30 - 5.80 M/cumm [facility] MCV 92.9 81.3 - 96.4 fL [facility] MCH 30.2 27.1 - 33.3 pg [facility] MCHC 32.5 32.3 - 35.7 g/dL [facility] RDW CV 20.1(H) 11.1 - 14.9 % [facility] RDW SD 64.8(H) 35.7 - 48.1 fL [facility] NRBC abs 0.04(H) 0.00 - 0.01 K/cumm [facility] Blood 06/20/2022 6:18 PM CDT 06/20/2022 7:08 PM CDT us Tyra De La Torre MD LAB BLOOD ORDERABLES Final Resu lt [facility] [place] [address] * POCT glucose (06/20/2022 3:53 PM CDT) [facility] Glucose, POC 124 70 - 199 mg/dL [facility] Blood 06/20/2022 3:53 PM CDT 06/20/2022 3:53 PM CDT us Catherine Adams MD LAB POCT ORDERABLES - DEVIC E Final Result Performing Organization Address City/[facility]/ZIP Co de Phone Number [facility] [place] [address] * (ABNORMAL) Differential, auto (06/20/2022 3:22 PM CDT) Neutrophil abs 4.7 1.7 - 6.5 K/cumm [facility] Imm gran abs 0.1 0.0 - 0.1 K/cumm [facility] Lymphocyte abs 1.4 0.8 - 3.3 K/cumm [facility] Monocyte abs 1.0(H) 0.2 - 0.8 K/cumm [facility] Eosinophil abs 0.0 0.0 - 0.5 K/cumm [facility] HEALTH Basophil abs 0.1 0.0 - 0.1 K/cumm [facility] Neutrophil pct 64.5 % [facility] Comment: Interpretive Data Percent cell count reference ranges are not reported, since discordance with absolute values may lead to misinterpretation of CBC data. Current Interpretive Data was last revised on 2017. Imm gran pct 0.7 % [facility] Comment: Interpretive Data Percent cell count reference ranges are not reported, since discordance with absolute values may lead to misinterpretation of CBC data. Current Interpretive Data was last revised on 2017. Lymphocyte pct 19.4 % [facility] Comment: Interpretive Data Percent cell count reference ranges are not reported, since discordance with absolute values may lead to misinterpretation of CBC data. Current Interpretive Data was last revised on 2017. Monocyte pct 14.1 % [facility] Comment: Interpretive Data Percent cell count reference ranges are not reported, since discordance with absolute values may lead to misinterpretation of CBC data. Current Interpretive Data was last revised on 2017. Eosinophil pct 0.6 % [facility] Comment: Interpretive Data Percent cell count reference ranges are not reported, since discordance with absolute values may lead to misinterpretation of CBC data. Current Interpretive Data was last revised on 2017. Basophil pct 0.7 % [facility] Comment: Interpretive Data Percent cell count reference ranges are not reported, since discordance with absolute values may lead to misinterpretation of CBC data. Current Interpretive Data was last revised on 2017. Blood 06/20/2022 3:22 PM CDT 06/20/2022 3:55 PM CDT Catherine Adams MD LAB BLOOD ORDERABLES Final Result [facility] [place] [address] * (ABNORMAL) CBC with auto differential (06/20/2022 3:22 PM CDT) Pathologist [facility] WBC 7.2 3.8 - 9.9 K/cumm [facility] Hgb 8.0(L) 13.0 - 17.5 g/dL [facility] Hct 24.5(L) 38.9 - 50.3 % [facility] Plt 207 150 - 400 K/cumm [facility] MPV 9.8 9.1 - 12.3 fL [facility] RBC 2.67(L) 4.30 - 5.80 M/cumm [facility] MCV 91.8 81.3 - 96.4 fL [facility] Comment:MCV delta due to zoie arent blood transfusion. MCH 30.0 27.1 - 33.3 pg [facility] MCHC 32.7 32.3 - 35.7 g/dL [facility] RDW CV 19.9(H) 11.1 - 14.9 % [facility] RDW SD 63.6(H) 35.7 - 48.1 fL [facility] NRBC abs 0.03(H) 0.00 - 0.01 K/cumm [facility] Blood 06/20/2022 3:22 PM CDT 06/20/2022 3:55 PM CDT us Catherine Adams MD LAB BLOOD ORDERABLES Final Result [facility] [place] [address] * CT Chest Abdomen Pelvis WO Contrast [...] it. Electronically signed by: Saurav Emerson M.D. Catherine Adams MD IMG CT PROCEDURES Final Res ult * Transfuse RBC (06/20/2022 12:05 PM CDT) Blood Catherine Adams MD BLOOD TRANSFUSION ORDERABLE S Final Result Performing Organization Address [facility] de Phone Number [facility] Department [place] [address] * Transfuse RBC: 1 Units (06/20/2022 12:05 PM CDT) Blood Result [facility] Catherine Adams MD BLOOD TRANSFUSION ORDERABLE S Final Result * Prepare RBC: 1 Units (06/20/2022 9:35 AM CDT) Product code [id number] [facility] Unit Number [id number] 3-* [facility] Product Blood Type APOS [facility] Dispense Status RETURNED [facility] Blood 06/20/2022 9:35 AM CDT 06/20/2022 9:34 AM CDT Narrative [facility] - 06/20/2022 1:20 PM CDT Are special requirements needed? (All products are leukoreduced and CMV- safe)- >No Date required:-20220620 LRRBC # of [id number] Reasons:-Hgb <7 g/dL} Catherine Adams MD BLOOD BANK PRODUCT ORDERABL ES Final Result ALESSANDRA CARRION [facility] Department [place] [address] * (ABNORMAL) eGFR (06/20/2022 8:24 AM CDT) [facility] eGFR 21(L) 90 - 130 mL/min/1. 73 m2 [facility] Comment: Interpretive Data Reference Interval [...] BLOOD ORDERABLES Final Re sult ALESSANDRA CARRION Billie [facility] Department [place] [address] * (ABNORMAL) Differential, auto (06/20/2022 8:24 AM CDT) Neutrophil abs 5.1 1.7 - 6.5 K/cumm [facility] Imm gran abs 0.1 0.0 - 0.1 K/cumm [facility] Lymphocyte abs 1.6 0.8 - 3.3 K/cumm [facility] Monocyte abs 1.3(H) 0.2 - 0.8 K/cumm [facility] Eosinophil abs 0.1 0.0 - 0.5 K/cumm [facility] Basophil abs 0.1 0.0 - 0.1 K/cumm [facility] Neutrophil pct 62.3 % [facility] Comment: Interpretive Data Percent cell count reference ranges are not reported, since discordance with absolute values may lead to misinterpretation of CBC data. Current Interpretive Data was last revised on 2017. Imm gran pct 0.7 % [facility] Comment: Interpretive Data Percent cell count reference ranges are not reported, since discordance with absolute values may lead to misinterpretation of CBC data. Current Interpretive Data was last revised on 2017. Lymphocyte pct 19.9 % [facility] Comment: Interpretive Data Percent cell count reference ranges are not reported, since discordance with absolute values may lead to misinterpretation of CBC data. Current Interpretive Data was last revised on 2017. Monocyte pct 15.9 % [facility] Comment: Interpretive Data Percent cell count reference ranges are not reported, since discordance with absolute values may lead to misinterpretation of CBC data. Current Interpretive Data was last revised on 2017. Eosinophil pct 0.6 % [facility] Comment: Interpretive Data Percent cell count reference ranges are not reported, since discordance with absolute values may lead to misinterpretation of CBC data. Current Interpretive Data was last revised on 2017. Basophil pct 0.6 % [facility] Comment: Interpretive Data Percent cell count reference ranges are not reported, since discordance with absolute values may lead to misinterpretation of CBC data. Current Interpretive Data was last revised on 2017. Blood 06/20/2022 8:24 AM CDT 06/20/2022 8:48 AM CDT Catherine Adams MD LAB BLOOD ORDERABLES Final Result [facility] [place] [address] * (ABNORMAL) CBC with auto differential (06/20/2022 8:24 AM CDT) WBC 8.3 3.8 - 9.9 K/cumm [facility] Hgb 6.6(L) 13.0 - 17.5 g/dL [facility] Hct 20.7(L) 38.9 - 50.3 % [facility] Plt 271 150 - 400 K/cumm [facility] MPV 9.6 9.1 - 12.3 fL [facility] RBC 2.12(L) 4.30 - 5.80 M/cumm [facility] MCV 97.6(H) 81.3 - 96.4 fL [facility] MCH 31.1 27.1 - 33.3 pg [facility] MCHC 31.9(L) 32.3 - 35.7 g/dL [facility] RDW CV 17.4(H) 11.1 - 14.9 % [facility] RDW SD 59.6(H) 35.7 - 48.1 fL [facility] NRBC abs 0.00 0.00 - 0.01 K/cumm [facility] Blood 06/20/2022 8:24 AM CDT 06/20/2022 8:48 AM CDT Catherine Adams MD LAB BLOOD ORDERABLES Final Result [facility] Department [place] [address] * (ABNORMAL) Magnesium (06/20/2022 8:24 AM CDT) Magnesium 2.7(H) 1.4 - 2.5 mg/dL [facility] Blood 06/20/2022 8:24 AM CDT 06/20/2022 8:48 AM CDT us Marcelina Lo [employer] LAB BLOOD ORDERABLES Final Re sult [facility] Department [place] [address] * (ABNORMAL) Comprehensive metabolic panel (06/20/2022 8:24 AM CDT) Sodium 140 135 - 145 mmol/L [facility] Potassium, pl 4.9 3.3 - 4.9 mmol/L [facility] Chloride 104 97 - 110 mmol/L [facility] CO2 25 22 - 32 mmol/L [facility] Anion gap 11 2 - 15 mmol/L [facility] BUN 25 8 - 25 mg/dL [facility] Creatinine 3.43(H) 0.80 - 1.30 mg/dL [facility] Glucose 144 70 - 199 mg/dL [facility] Comment: Interpretive Data Fasting glucose [...] 2017. Calcium 8.4(L) 8.5 - 10.3 mg/dL [facility] Bilirubin, total 0.6 0.1 - 1.2 mg/dL [facility] Protein, pl 6.2(L) 6.5 - 8.5 g/dL [facility] Albumin 2.8(L) 3.5 - 5.0 g/dL [facility] Alk phos 143(H) 40 - 130 Units/L [facility] ALT 35 7 - 55 Units/L [facility] AST 79(H) 10 - 50 Units/L [facility] Blood 06/20/2022 8:24 AM CDT 06/20/2022 8:48 AM CDT us Marcelina Lo NP LAB BLOOD ORDERABLES Final Re sult Performing Organization Address [facility] de Phone Number [facility] [place] [address] * POCT glucose (06/20/2022 8:21 AM CDT) Glucose, POC 152 70 - 199 mg/dL [facility] Blood 06/20/2022 8:21 AM CDT 06/20/2022 8:21 AM CDT Catherine Adams MD LAB POCT ORDERABLES - DEVIC E Final Result Performing Organization Address [facility] Phone Number [facility] Department [place] [address] * Transfuse RBC (06/20/2022 6:12 AM CDT) Blood Catherine Adams MD BLOOD TRANSFUSION ORDERABLE S Final Result Performing Organization Address [facility] de Phone Number [facility] [place] [address] * Transfuse RBC: 1 Units (06/20/2022 6:12 AM CDT) Blood us Catherine Adams MD BLOOD TRANSFUSION ORDERABLE S Final Result * POCT glucose (06/20/2022 4:57 AM CDT) Glucose, POC 174 70 - 199 mg/dL [facility] Blood 06/20/2022 4:57 AM CDT 06/20/2022 4:57 AM CDT us Catherine Adams MD LAB POCT ORDERABLES - [place] [address] * (ABNORMAL) Hemoglobin and hematocrit (06/20/2022 12:25 AM CDT) Pathologist [facility] Hgb 6.2(C) 13.0 - 17.5 g/dL [facility] Comment:Consistent with prev ious results Hct 19.8(L) 38.9 - 50.3 % [facility] Blood 06/20/2022 12:2 5 AM CDT 06/20/2022 12:37 AM CDT Meme Castro MD LAB BLOOD ORDERABLES Final Result Performing Organization Address [facility] [place] [address] * Type and screen (06/20/2022 12:23 AM CDT) [facility] Maribel, indirect Negative [facility] ABO Rh A Positive [facility] Blood 06/20/2022 12:2 3 AM CDT 06/20/2022 1:33 AM CDT Narrative [facility] - 06/20/2022 3:08 AM CDT Has the patient had Daratumumab or Isatuximab in the past 6 months?->Unknown Catherine Adams MD LAB BLOOD BANK TEST ORDERAB LES Final Result Performing Organization Address City/[facility]/[place] [address] * Prepare RBC: 1 Units (06/20/2022 12:15 AM CDT) Product code [id number] [facility] Unit Number [id number] [facility] Product Blood Type APOS [facility] Dispense Status PRESUMED TRANSFUSED [facility] Blood 06/20/2022 12:1 5 AM CDT 06/20/2022 12:16 AM CDT Narrative [facility] - 06/21/2022 12:50 AM CDT Are special requirements needed? (All products are leukoreduced and CMV- safe)- >No Date required:-20220620 LRRBC # of [id number] Reasons:-Hgb <7 g/dL} Catherine Adams MD BLOOD BANK PRODUCT ORDERABL ES Final Result Performing Organization Address [facility] Co de Phone Number [facility] Department [place] [address] * (ABNORMAL) POCT glucose (06/20/2022 12:01 AM CDT) Glucose, POC 206(H) 70 - 199 mg/dL [facility] Blood 06/20/2022 12:0 1 AM CDT 06/20/2022 12:01 AM CDT Result [facility] Catherine Adams MD LAB POCT ORDERABLES - DEVIC E Final Result Performing Organization Address City/[facility] Co de Phone Number [facility] Department [place] [address] * (ABNORMAL) Hemoglobin and hematocrit (06/19/2022 11:25 PM CDT) Hgb 6.2(C) 13.0 - 17.5 g/dL [facility] Comment:Critical result call ed to and read back by WON SHELBY RN on 06 20 2022 at 0010 to Precious Restrepo. Hct 19.5(L) 38.9 - 50.3 % [facility] Blood 06/19/2022 11:2 5 PM CDT 06/19/2022 11:42 PM CDT Meme Castro MD LAB BLOOD ORDERABLES Final Result Performing Organization Address [facility] Co de Phone Number [facility] Department [place] [address] * POCT glucose (06/19/2022 8:55 PM CDT) [facility] Glucose, POC 161 70 - 199 mg/dL [facility] Blood 06/19/2022 8:55 PM CDT 06/19/2022 8:55 PM CDT Catherine Adams MD LAB POCT ORDERABLES - DEVIC E Final Result Performing Organization Address [facility] de Phone Number [facility] Department [place] [address] * (ABNORMAL) eGFR (06/19/2022 8:54 PM CDT) [facility] eGFR 16(L) 90 - 130 mL/min/1. 73 m2 [facility] Comment: Interpretive Data Reference Interval [...] 06/19/2022 9:22 PM CDT us Marcelina Lo [employer] LAB BLOOD ORDERABLES Final Re sult [facility] Department [place] [address] * (ABNORMAL) Differential, auto (06/19/2022 8:54 PM CDT) Neutrophil abs 5.0 1.7 - 6.5 K/cumm [facility] Imm gran abs 0.1 0.0 - 0.1 K/cumm [facility] Lymphocyte abs 2.1 0.8 - 3.3 K/cumm [facility] Monocyte abs 1.2(H) 0.2 - 0.8 K/cumm [facility] Eosinophil abs 0.1 0.0 - 0.5 K/cumm [facility] Basophil abs 0.1 0.0 - 0.1 K/cumm [facility] Neutrophil pct 59.1 % [facility] Comment: Interpretive Data Percent cell count reference ranges are not reported, since discordance with absolute values may lead to misinterpretation of CBC data. Current Interpretive Data was last revised on 2017. Imm gran pct 0.7 % [facility] Comment: Interpretive Data Percent cell count reference ranges are not reported, since discordance with absolute values may lead to misinterpretation of CBC data. Current Interpretive Data was last revised on 2017. Lymphocyte pct 24.4 % [facility] Comment: Interpretive Data Percent cell count reference ranges are not reported, since discordance with absolute values may lead to misinterpretation of CBC data. Current Interpretive Data was last revised on 2017. Monocyte pct 13.7 % [facility] Comment: Interpretive Data Percent cell count reference ranges are not reported, since discordance with absolute values may lead to misinterpretation of CBC data. Current Interpretive Data was last revised on 2017. Eosinophil pct 1.3 % [facility] Comment: Interpretive Data Percent cell count reference ranges are not reported, since discordance with absolute values may lead to misinterpretation of CBC data. Current Interpretive Data was last revised on 2017. Basophil pct 0.8 % [facility] Comment: Interpretive Data Percent cell count reference ranges are not reported, since discordance with absolute values may lead to misinterpretation of CBC data. Current Interpretive Data was last revised on 2017. Blood 06/19/2022 8:54 PM CDT 06/19/2022 9:17 PM CDT Marcelina Lo [employer]NALYST LAB BLOOD ORDERABLES Final Re sult Performing Organization Address [facility] de Phone Number [facility] [place] [address] * (ABNORMAL) Blood gas, arterial (06/19/2022 8:54 PM CDT) Pathologist [facility] pH, Art 7.45 7.35 - 7.45 [facility] PCO2, Arterial 32(L) 35 - 45 mmHg [facility] PO2, Arterial 75(L) 83 - 108 mmHg [facility] HCO3 Art (Calculated) 23 20 - 30 mmol/L [facility] BE, art -1 mmol/L [facility] Comment: Interpretive Data No Reference Range Established Current Interpretive Data was last revised on 2017 O2 Sat Art (Measured) 95 90 - 95 % [facility] Blood 06/19/2022 8:54 PM CDT 06/19/2022 9:17 PM CDT Marcelina Lo NP LAB BLOOD ORDERABLES Final Re sult Performing Organization Address [facility] Co de Phone Number [facility] [place] [address] * aPTT (06/19/2022 8:54 PM CDT) Pathologist [facility] aPTT 37 27 - 37 sec [facility] Comment: Interpretive Data Therapeutic heparin range: 60.0 - 94.0 seconds. Based on correlation with therapeutic heparin activity range of 0.3-0.7 Units/mL. Current interpretive data was last revised on 2020. Blood 06/19/2022 8:54 PM CDT 06/19/2022 9:30 PM CDT Narrative [facility] - 06/19/2022 9:38 PM CDT [...] BLOOD ORDERABLES Final Result Performing Organization Address City/[facility]/ZIP Co de Phone Number [facility] Department [place] [address] * Lactate (06/19/2022 8:54 PM CDT) [facility] Lactate 1.3 0.7 - 2.0 mmol/L [facility] Blood 06/19/2022 8:54 PM CDT 06/19/2022 9:22 PM CDT Catherine Adams MD LAB BLOOD ORDERABLES Final Result [facility] [place] [address] * (ABNORMAL) Beta-hydroxybutyrate (06/19/2022 8:54 PM CDT) [facility] Beta-Hydroxybut yrate 0.7(H) 0.0 - 0.5 mmol/L [facility] Blood 06/19/2022 8:54 PM CDT 06/19/2022 9:17 PM CDT Marcelina Lo [employer]LY[employer] LAB BLOOD ORDERABLES Final Re sult Performing Organization Address City/[facility]/ZIP Co de Phone Number [facility] Department [place] [address] * (ABNORMAL) Magnesium (06/19/2022 8:54 PM CDT) Magnesium 2.7(H) 1.4 - 2.5 mg/dL [facility] Blood 06/19/2022 8:54 PM CDT 06/19/2022 9:22 PM CDT Marcelina Lo [employer] [facility] LAB BLOOD ORDERABLES Final Re sult Performing Organization Address [facility] Co de Phone Number [facility] Department [place] [address] * (ABNORMAL) Comprehensive metabolic panel (06/19/2022 8:54 PM CDT) Sodium 140 135 - 145 mmol/L [facility] Potassium, pl 4.8 3.3 - 4.9 mmol/L [facility] Chloride 102 97 - 110 mmol/L [facility] CO2 25 22 - 32 mmol/L [facility] Anion gap 13 2 - 15 mmol/L [facility] BUN 32(H) 8 - 25 mg/dL [facility] Creatinine 4.27(H) 0.80 - 1.30 mg/dL [facility] Glucose 148 70 - 199 mg/dL [facility] Comment: Interpretive Data Fasting glucose [...] 2017. Calcium 8.3(L) 8.5 - 10.3 mg/dL [facility] Bilirubin, total 0.5 0.1 - 1.2 mg/dL [facility] Protein, pl 6.1(L) 6.5 - 8.5 g/dL [facility] Albumin 2.9(L) 3.5 - 5.0 g/dL [facility] Alk phos 150(H) 40 - 130 Units/L [facility] ALT 32 7 - 55 Units/L [facility] AST 61(H) 10 - 50 Units/L [facility] Blood 06/19/2022 8:54 PM CDT 06/19/2022 9:22 PM CDT us Marcelina Lo [employer] LAB BLOOD ORDERABLES Final Re sult [facility] [place] [address] * (ABNORMAL) CBC with auto differential (06/19/2022 8:54 PM CDT) WBC 8.4 3.8 - 9.9 K/cumm [facility] Hgb 6.8(L) 13.0 - 17.5 g/dL [facility] Comment:No apparent cause fo r delta. called ashley sandoval MD Hct 20.5(L) 38.9 - 50.3 % [facility] Plt 255 150 - 400 K/cumm [facility] MPV 9.6 9.1 - 12.3 fL [facility] RBC 2.15(L) 4.30 - 5.80 M/cumm [facility] MCV 95.3 81.3 - 96.4 fL [facility] MCH 31.6 27.1 - 33.3 pg [facility] MCHC 33.2 32.3 - 35.7 g/dL [facility] RDW CV 16.5(H) 11.1 - 14.9 % [facility] RDW SD 55.8(H) 35.7 - 48.1 fL [facility] NRBC abs 0.03(H) 0.00 - 0.01 K/cumm [facility] Blood 06/19/2022 8:54 PM CDT 06/19/2022 9:17 PM CDT us Marcelina Lo NP LAB BLOOD ORDERABLES Final Re sult Performing Organization Address [facility] Co de Phone Number [facility] [place] [address] * (ABNORMAL) POCT glucose (06/19/2022 4:59 PM CDT) Glucose, POC 205(H) 70 - 199 mg/dL [facility] Blood 06/19/2022 4:59 PM CDT 06/19/2022 4:59 PM CDT Catherine Adams MD LAB POCT ORDERABLES - DEVIC E Final Result Performing Organization Address [facility] Co de Phone Number [facility] [place] [address] * POCT glucose (06/19/2022 1:22 PM CDT) Glucose, POC 101 70 - 199 mg/dL [facility] Blood 06/19/2022 1:22 PM CDT 06/19/2022 1:22 PM CDT Catherine Adams MD LAB POCT ORDERABLES - DEVIC E Final Result Performing Organization Address [facility] Co de Phone Number [place] [address] * ECG 12 lead (06/19/2022 1:03 PM CDT) Ventricular Rate EKG/Min 126 BPM [facility] Atrial Rate 63 BPM [facility] QRS-Interval (MSEC) 106 ms [facility] QT-Interval (MSEC) 360 ms [facility] QTc 521 ms [facility] R [place] -53 degrees [facility] T [place] 125 degrees [facility] Diagnosis Atrial fibrillation with rapid ventricular response with premature ventricular or aberrantly conducted complexes Left axis deviation Poor precordial R wave progression Anterior infarct , age undetermined ST & T wave abnormality, consider lateral ischemia Abnormal ECG When compared with ECG of 18-JUN-2022 18:40, (unconfirmed) No significant change was found Confirmed by HUDSON SAL M.D ([id number]) on 06/22/2022 10:55:43 AM [facility] 06/19/2022 1:03 PM CDT 06/22/2022 10:55 AM CDT us Conrad Weston Chi, MD ECG ORDERABLES Final Res ult [facility] * US RUQ (06/19/2022 10:35 AM CDT) Anatomical Region Laterality Modality Abdomen N/A Ultrasound 06/19/2022 10:4 7 AM CDT Impressions 06/19/2022 10:49 AM CDT Overdistended gallbladder with biliary sludge. ??No wall thickening or other signs of cholecystitis. ??Findings are probably related to prolonged fasting. ??If there is persistent clinical concern, consider HIDA scan. ?? Dictated by: Fernadno Reinoso M.D. The radiology attending physician has [...] Teresa Rivera M.D. us Catherine Adams MD [facility] [place] [facility] US PROCEDURES Final Res ult * (ABNORMAL) eGFR (06/19/2022 9:09 AM CDT) [facility] eGFR 13(L) 90 - 130 mL/min/1. 73 m2 [facility] Comment: Interpretive Data Reference Interval [...] 06/19/2022 10:17 AM CDT us Marcelina Lo [employer] [facility] LAB BLOOD ORDERABLES Final Re sult [facility] [place] [address] * Differential, auto (06/19/2022 9:09 AM CDT) Neutrophil abs 2.8 1.7 - 6.5 K/cumm [facility] Imm gran abs 0.0 0.0 - 0.1 K/cumm [facility] Lymphocyte abs 1.2 0.8 - 3.3 K/cumm [facility] Monocyte abs 0.7 0.2 - 0.8 K/cumm [facility] Eosinophil abs 0.1 0.0 - 0.5 K/cumm [facility] Basophil abs 0.1 0.0 - 0.1 K/cumm [facility] Neutrophil pct 56.1 % [facility] Comment: Interpretive Data Percent cell count reference ranges are not reported, since discordance with absolute values may lead to misinterpretation of CBC data. Current Interpretive Data was last revised on 2017. Imm gran pct 0.8 % [facility] Comment: Interpretive Data Percent cell count reference ranges are not reported, since discordance with absolute values may lead to misinterpretation of CBC data. Current Interpretive Data was last revised on 2017. Lymphocyte pct 24.9 % [facility] Comment: Interpretive Data Percent cell count reference ranges are not reported, since discordance with absolute values may lead to misinterpretation of CBC data. Current Interpretive Data was last revised on 2017. Monocyte pct 14.2 % [facility] Comment: Interpretive Data Percent cell count reference ranges are not reported, since discordance with absolute values may lead to misinterpretation of CBC data. Current Interpretive Data was last revised on 2017. Eosinophil pct 2.8 % [facility] Comment: Interpretive Data Percent cell count reference ranges are not reported, since discordance with absolute values may lead to misinterpretation of CBC data. Current Interpretive Data was last revised on 2017. Basophil pct 1.2 % [facility] Comment: Interpretive Data Percent cell count reference ranges are not reported, since discordance with absolute values may lead to misinterpretation of CBC data. Current Interpretive Data was last revised on 2017. Blood 06/19/2022 9:09 AM CDT 06/19/2022 10:25 AM CDT us Marcelina Lo [facility] [facility] LAB BLOOD ORDERABLES Final Re sult [facility] Department [place] [address] * (ABNORMAL) Blood gas, arterial (06/19/2022 9:09 AM CDT) pH, Art 7.41 7.35 - 7.45 [facility] PCO2, Arterial 33(L) 35 - 45 mmHg [facility] PO2, Arterial 87 83 - 108 mmHg [facility] HCO3 Art (Calculated) 21 20 - 30 mmol/L [facility] BE, art -4 mmol/L [facility] Comment: Interpretive Data No Reference Range Established Current Interpretive Data was last revised on 2017 O2 Sat Art (Measured) 96(H) 90 - 95 % [facility] Blood 06/19/2022 9:09 AM CDT 06/19/2022 9:18 AM CDT Marcelina Lo [facility] [facility] [facility] LAB BLOOD ORDERABLES Final Re sult Performing Organization Address [facility] Co de Phone Number [facility] Department [place] [address] * (ABNORMAL) Magnesium (06/19/2022 9:09 AM CDT) Pathologist [facility] Magnesium 2.9(H) 1.4 - 2.5 mg/dL [facility] Blood 06/19/2022 9:09 AM CDT 06/19/2022 10:17 AM CDT Marcelina Lo [facility] [facility] LAB BLOOD ORDERABLES Final Re sult Performing Organization Address [facility] de Phone Number [facility] [place] [address] * (ABNORMAL) Comprehensive metabolic panel (06/19/2022 9:09 AM CDT) [facility] Sodium 137 135 - 145 mmol/L [facility] Potassium, pl 4.6 3.3 - 4.9 mmol/L [facility] Chloride 101 97 - 110 mmol/L [facility] CO2 23 22 - 32 mmol/L [facility] Anion gap 13 2 - 15 mmol/L [facility] BUN 35(H) 8 - 25 mg/dL [facility] Creatinine 5.02(H) 0.80 - 1.30 mg/dL [facility] Glucose 205(H) 70 - 199 mg/dL [facility] Comment: Interpretive Data Fasting glucose [...] 2017. Calcium 8.4(L) 8.5 - 10.3 mg/dL [facility] Bilirubin, total 0.4 0.1 - 1.2 mg/dL [facility] Protein, pl 6.1(L) 6.5 - 8.5 g/dL [facility] Albumin 2.9(L) 3.5 - 5.0 g/dL [facility] Alk phos 156(H) 40 - 130 Units/L [facility] ALT 32 7 - 55 Units/L [facility] AST 54(H) 10 - 50 Units/L [facility] Blood 06/19/2022 9:09 AM CDT 06/19/2022 10:17 AM CDT us Marcelina Lo [facility] [facility] LAB BLOOD ORDERABLES Final Re sult [facility] Department [place] [address] * (ABNORMAL) CBC with auto differential (06/19/2022 9:09 AM CDT) WBC 4.9 3.8 - 9.9 K/cumm [facility] Hgb 9.9(L) 13.0 - 17.5 g/dL [facility] Hct 31.5(L) 38.9 - 50.3 % [facility] Plt 237 150 - 400 K/cumm [facility] MPV 9.9 9.1 - 12.3 fL [facility] RBC 3.20(L) 4.30 - 5.80 M/cumm [facility] MCV 98.4(H) 81.3 - 96.4 fL [facility] MCH 30.9 27.1 - 33.3 pg [facility] MCHC 31.4(L) 32.3 - 35.7 g/dL [facility] RDW CV 16.4(H) 11.1 - 14.9 % [facility] RDW SD 57.2(H) 35.7 - 48.1 fL [facility] NRBC abs 0.00 0.00 - 0.01 K/cumm [facility] Blood 06/19/2022 9:09 AM CDT 06/19/2022 10:25 AM CDT us Marcelina Lo [facility] [facility] [facility] LAB BLOOD ORDERABLES Final Re sult [facility] Department [place] [address] * (ABNORMAL) POCT glucose (06/19/2022 9:08 AM CDT) [facility] Signature Glucose, POC 217(H) 70 - 199 mg/dL [facility] Blood 06/19/2022 9:08 AM CDT 06/19/2022 9:08 AM CDT us Catherine Adams MD LAB POCT ORDERABLES - DEVIC E Final Result Performing Organization Address [facility] Co de Phone Number [facility] Department [place] [address] * XR Chest 1 View (06/19/2022 5:51 AM CDT) Anatomical Region Laterality Modality Body, Chest N/A Computed Radiogr aphy 06/19/2022 7:34 AM CDT Impressions 06/19/2022 7:34 AM CDT Comparison made to 06/18/2022. ??Right internal jugular catheter tip overlies the superior vena cava. ??Nasogastric tube tip located below diaphragm, not included on the [id number]. ??A tracheal tube tip located within the mid trachea. There are small lung volumes a likely small bilateral pleural effusions, left greater than right with associated bibasilar atelectasis. ??No pneumothorax or pneumonic consolidation. ??Stable heart size. Electronically signed by: Dorys Cueva 06/19/2022 7:34 AM CDT EXAMINATION: 1 view chest radiograph Procedure Note John Bruno MD - 06/19/2022 EXAMINATION: 1 view chest radiograph IMPRESSION: Comparison made to 06/18/2022. Right internal jugular catheter tip overlies the superior vena cava. Nasogastric tube tip located below diaphragm, not included on the [id number]. A tracheal tube tip located within the [...] 13(L) 90 - 130 mL/min/1. 73 m2 [facility] Comment: Interpretive Data Reference Interval [...] 06/18/2022 11:02 PM CDT us Marcelina Lo [facility] [facility] LAB BLOOD ORDERABLES Final Re sult Performing Organization Address City/[facility]/ZIP Co de Phone Number [facility] [place] [address] * Vancomycin level random (06/18/2022 10:50 PM CDT) Pathologist [facility] Vancomycin random 38.4 mcg/mL [facility] Comment: Interpretive Data No reference ranges have been established for random drug levels. Current Interpretive Data was last revised on 2020. Blood 06/18/2022 10:5 0 PM CDT 06/18/2022 10:59 PM CDT us Catherine Adams MD LAB BLOOD ORDERABLES Final Result Performing Organization Address [facility] de Phone Number [facility] [place] [address] * (ABNORMAL) Differential, auto (06/18/2022 10:50 PM CDT) Pathologist [facility] Neutrophil abs 5.0 1.7 - 6.5 K/cumm [facility] Imm gran abs 0.1 0.0 - 0.1 K/cumm [facility] Lymphocyte abs 1.7 0.8 - 3.3 K/cumm [facility] Monocyte abs 1.3(H) 0.2 - 0.8 K/cumm [facility] Eosinophil abs 0.2 0.0 - 0.5 K/cumm [facility] Basophil abs 0.1 0.0 - 0.1 K/cumm [facility] Neutrophil pct 60.3 % [facility] Comment: Interpretive Data Percent cell count reference ranges are not reported, since discordance with absolute values may lead to misinterpretation of CBC data. Current Interpretive Data was last revised on 2017. Imm gran pct 0.7 % [facility] Comment: Interpretive Data Percent cell count reference ranges are not reported, since discordance with absolute values may lead to misinterpretation of CBC data. Current Interpretive Data was last revised on 2017. Lymphocyte pct 20.4 % [facility] Comment: Interpretive Data Percent cell count reference ranges are not reported, since discordance with absolute values may lead to misinterpretation of CBC data. Current Interpretive Data was last revised on 2017. Monocyte pct 16.0 % [facility] Comment: Interpretive Data Percent cell count reference ranges are not reported, since discordance with absolute values may lead to misinterpretation of CBC data. Current Interpretive Data was last revised on 2017. Eosinophil pct 2.0 % [facility] Comment: Interpretive Data Percent cell count reference ranges are not reported, since discordance with absolute values may lead to misinterpretation of CBC data. Current Interpretive Data was last revised on 2017. Basophil pct 0.6 % [facility] Comment: Interpretive Data Percent cell count reference ranges are not reported, since discordance with absolute values may lead to misinterpretation of CBC data. Current Interpretive Data was last revised on 2017. Blood 06/18/2022 10:5 0 PM CDT 06/18/2022 10:59 PM CDT us Marcelina Lo NP LAB BLOOD ORDERABLES Final Re sult [facility] Department [place] [address] * Lactate (06/18/2022 10:50 PM CDT) Lactate 1.0 0.7 - 2.0 mmol/L [facility] Blood 06/18/2022 10:5 0 PM CDT 06/18/2022 11:02 PM CDT us Catherine Adams MD LAB BLOOD ORDERABLES Final Result Performing Organization Address [facility]/ZIP Co de Phone Number [facility] Department [place] [address] * (ABNORMAL) Triglycerides (06/18/2022 10:50 PM CDT) Triglycerides 226(H) <=149 mg/dL [facility] Comment: Interpretive Data Ages < [...] PM CDT 06/18/2022 10:59 PM CDT Narrative [facility] - 06/18/2022 11:57 PM CDT While on propofol infusion. us Catherine Adams MD LAB BLOOD ORDERABLES Final Result Performing Organization Address City/[facility]/ZIP Co de Phone Number [facility] Department [place] [address] * (ABNORMAL) Phosphorus (06/18/2022 10:50 PM CDT) Phosphorus, pl 5.2(H) 2.3 - 4.5 mg/dL [facility] Blood 06/18/2022 10:5 0 PM CDT 06/18/2022 10:59 PM CDT Marcelina Lo [facility] [facility] LAB BLOOD ORDERABLES Final Re sult Performing Organization Address [facility] Co de Phone Number [place] [address] * (ABNORMAL) Beta-hydroxybutyrate (06/18/2022 10:50 PM CDT) Beta-Hydroxybut yrate 1.3(H) 0.0 - 0.5 mmol/L [facility] Blood 06/18/2022 10:5 0 PM CDT 06/18/2022 10:59 PM CDT Marcelina Lo [facility] LAB BLOOD ORDERABLES Final Re sult Performing Organization Address [facility] Co de Phone Number [place] [address] * Lipase (06/18/2022 10:50 PM CDT) Lipase 22 10 - 99 Units/L [facility] Blood 06/18/2022 10:5 0 PM CDT 06/18/2022 10:59 PM CDT Marcelina Lo [facility] LAB BLOOD ORDERABLES Final Re sult Performing Organization Address [facility] Co de Phone Number [place] [address] * (ABNORMAL) Magnesium (06/18/2022 10:50 PM CDT) Magnesium 3.1(H) 1.4 - 2.5 mg/dL [facility] Blood 06/18/2022 10:5 0 PM CDT 06/18/2022 11:02 PM CDT us Marcelina Lo NP LAB BLOOD ORDERABLES Final Re sult [facility] Department [place] [address] * (ABNORMAL) Comprehensive metabolic panel (06/18/2022 10:50 PM CDT) Sodium 140 135 - 145 mmol/L [facility] Potassium, pl 4.3 3.3 - 4.9 mmol/L [facility] Chloride 103 97 - 110 mmol/L [facility] CO2 22 22 - 32 mmol/L [facility] Anion gap 15 2 - 15 mmol/L [facility] BUN 35(H) 8 - 25 mg/dL [facility] Creatinine 5.01(H) 0.80 - 1.30 mg/dL [facility] Glucose 199 70 - 199 mg/dL [facility] Comment: Interpretive Data Fasting glucose >/= 126 [...] Calcium 8.7 8.5 - 10.3 mg/dL [facility] Bilirubin, total 0.4 0.1 - 1.2 mg/dL [facility] Protein, pl 6.5 6.5 - 8.5 g/dL [facility] Albumin 2.8(L) 3.5 - 5.0 g/dL [facility] Alk phos 163(H) 40 - 130 Units/L [facility] ALT 34 7 - 55 Units/L [facility] AST 56(H) 10 - 50 Units/L [facility] Blood 06/18/2022 10:5 0 PM CDT 06/18/2022 11:02 PM CDT us Marcelina Lo [facility] LAB BLOOD ORDERABLES Final Re sult Performing Organization Address [facility] Co de Phone Number [facility] Department [place] [address] * (ABNORMAL) CBC with auto differential (06/18/2022 10:50 PM CDT) [facility] WBC 8.4 3.8 - 9.9 K/cumm [facility] Hgb 7.5(L) 13.0 - 17.5 g/dL [facility] Hct 23.6(L) 38.9 - 50.3 % [facility] Plt 313 150 - 400 K/cumm [facility] MPV 9.8 9.1 - 12.3 fL [facility] RBC 2.41(L) 4.30 - 5.80 M/cumm [facility] MCV 97.9(H) 81.3 - 96.4 fL [facility] MCH 31.1 27.1 - 33.3 pg [facility] MCHC 31.8(L) 32.3 - 35.7 g/dL [facility] RDW CV 16.5(H) 11.1 - 14.9 % [facility] RDW SD 56.5(H) 35.7 - 48.1 fL [facility] NRBC abs 0.00 0.00 - 0.01 K/cumm [facility] Blood 06/18/2022 10:5 0 PM CDT 06/18/2022 10:59 PM CDT us Marcelina Lo [facility] LAB BLOOD ORDERABLES Final Re sult Performing Organization Address City/[facility]/ZIP Co de Phone Number [facility] Department [place] [address] * (ABNORMAL) POCT glucose (06/18/2022 7:51 PM CDT) Glucose, POC 256(H) 70 - 199 mg/dL [facility] Blood 06/18/2022 7:51 PM CDT 06/18/2022 7:51 PM CDT Catherine Adams MD LAB POCT ORDERABLES - DEVIC E Final Result Performing Organization Address City/[facility]/ZIP Co de Phone Number [facility] Department [place] [address] * ECG 12 lead (06/18/2022 6:40 PM CDT) [facility] Ventricular Rate EKG/Min 133 BPM [facility] Atrial Rate 147 BPM [facility] QRS-Interval (MSEC) 102 ms [facility] QT-Interval (MSEC) 332 ms [facility] QTc 494 ms [facility] R [place] -43 degrees [facility] T [place] 123 degrees [facility] Diagnosis Atrial fibrillation with rapid ventricular [...] BILLINGSLEY M.D ([id number]) on 06/21/2022 1:28:53 PM [facility] 06/18/2022 6:40 PM CDT 06/21/2022 1:28 PM CDT us Conrad Weston Chi, MD ECG ORDERABLES Final Res ult Performing Organization Address City/[facility]/ZIP Co de Phone Number [facility] * POCT glucose (06/18/2022 5:11 PM CDT) Glucose, POC 168 70 - 199 mg/dL [facility] Blood 06/18/2022 5:11 PM CDT 06/18/2022 5:11 PM CDT us Catherine Adams MD LAB POCT ORDERABLES - DEVIC E Final Result Performing Organization Address City/[facility]/ZIP Co de Phone Number [facility] [place] [address] * POCT glucose (06/18/2022 4:16 PM CDT) Glucose, POC 181 70 - 199 mg/dL [facility] Blood 06/18/2022 4:16 PM CDT 06/18/2022 4:16 PM CDT Catherine Adams MD LAB POCT ORDERABLES - DEVIC E Final Result Performing Organization Address [facility] de Phone Number [facility] [place] [address] * (ABNORMAL) POCT glucose (06/18/2022 2:38 PM CDT) Glucose, POC 264(H) 70 - 199 mg/dL [facility] Blood 06/18/2022 2:38 PM CDT 06/18/2022 2:38 PM CDT Catherine Adams MD LAB POCT ORDERABLES - DEVIC E Final Result Performing Organization Address [facility] Co de Phone Number [facility] Department [place] [address] * (ABNORMAL) POCT glucose (06/18/2022 1:34 PM CDT) Glucose, POC 376(H) 70 - 199 mg/dL [facility] Blood 06/18/2022 1:34 PM CDT 06/18/2022 1:34 PM CDT us Catherine Adams MD LAB POCT ORDERABLES - DEVIC E Final Result Performing Organization Address City/[facility] Co de Phone Number [facility] Department [place] [address] * (ABNORMAL) Beta-hydroxybutyrate (06/18/2022 1:32 PM CDT) Beta-Hydroxybut yrate 0.9(H) 0.0 - 0.5 mmol/L [facility] Blood 06/18/2022 1:32 PM CDT 06/18/2022 1:48 PM CDT Catherine Adams MD LAB BLOOD ORDERABLES Final Result Performing Organization Address [facility] Co de Phone Number [facility] Department [place] [address] * IR Central Line Placement > 5 [...] was obtained. ??Prior to beginning the procedure, [place] Protocol was used to confirm the patient's [...] was obtained. Prior to beginning the procedure, [place] Protocol was used to confirm the patient's [...] it. Electronically signed by: Payam Allison M.D. us Catherine Adams MD IMG IR PROCEDURES Final Res ult * POCT glucose (06/18/2022 11:34 AM CDT) Glucose, POC 170 70 - 199 mg/dL [facility] Blood 06/18/2022 11:3 4 AM CDT 06/18/2022 11:34 AM CDT us Catherine Adams MD LAB POCT ORDERABLES - DEVIC E Final Result Performing Organization Address City/[facility] Co de Phone Number [facility] [place] [address] * (ABNORMAL) Blood gas, arterial (06/18/2022 10:14 AM CDT) [facility] pH, Art 7.36 7.35 - 7.45 [facility] PCO2, Arterial 37 35 - 45 mmHg [facility] PO2, Arterial 74(L) 83 - 108 mmHg [facility] HCO3 Art (Calculated) 21 20 - 30 mmol/L [facility] BE, art -4 mmol/L [facility] Comment: Interpretive Data No Reference Range Established Current Interpretive Data was last revised on 2017 O2 Sat Art (Measured) 94 90 - 95 % [facility] Blood 06/18/2022 10:1 4 AM CDT 06/18/2022 10:23 AM CDT us Marcelina Lo NP LAB BLOOD ORDERABLES Final Re sult Performing Organization Address [facility] Co de Phone Number [facility] Department [place] [address] * POCT glucose (06/18/2022 10:13 AM CDT) [facility] Glucose, POC 83 70 - 199 mg/dL [facility] Blood 06/18/2022 10:1 3 AM CDT 06/18/2022 10:13 AM CDT Catherine Adams MD LAB POCT ORDERABLES - DEVIC E Final Result Performing Organization Address [facility] Co de Phone Number [facility] [place] [address] * (ABNORMAL) eGFR (06/18/2022 8:52 AM CDT) [...] 06/18/2022 9:01 AM CDT us Marcelina Lo [facility] [facility]NA[facility] LAB BLOOD ORDERABLES Final Re sult [facility] Department of Laboratories [place], [place] [id number] * Vancomycin level random (06/18/2022 8:52 AM CDT) Pathologist [facility] Vancomycin random 51.8 mcg/mL [facility] Comment: Repeated on Dilution Interpretive Data No reference ranges have been established for random drug levels. Current Interpretive Data was last revised on 2020. Blood 06/18/2022 8:52 AM CDT 06/18/2022 8:58 AM CDT us Catherine Adams MD LAB BLOOD ORDERABLES Final Result [facility] [place] [address] * (ABNORMAL) Differential, auto (06/18/2022 8:52 AM CDT) Neutrophil abs 5.2 1.7 - 6.5 K/cumm [facility] Imm gran abs 0.1 0.0 - 0.1 K/cumm [facility] Lymphocyte abs 1.8 0.8 - 3.3 K/cumm [facility] Monocyte abs 1.6(H) 0.2 - 0.8 K/cumm [facility] Eosinophil abs 0.2 0.0 - 0.5 K/cumm [facility] Basophil abs 0.1 0.0 - 0.1 K/cumm [facility] Neutrophil pct 58.4 % [facility] Comment: Interpretive Data Percent cell count reference ranges are not reported, since discordance with absolute values may lead to misinterpretation of CBC data. Current Interpretive Data was last revised on 2017. Imm gran pct 1.0 % [facility] Comment: Interpretive Data Percent cell count reference ranges are not reported, since discordance with absolute values may lead to misinterpretation of CBC data. Current Interpretive Data was last revised on 2017. Lymphocyte pct 19.8 % [facility] Comment: Interpretive Data Percent cell count reference ranges are not reported, since discordance with absolute values may lead to misinterpretation of CBC data. Current Interpretive Data was last revised on 2017. Monocyte pct 17.5 % [facility] Comment: Interpretive Data Percent cell count reference ranges are not reported, since discordance with absolute values may lead to misinterpretation of CBC data. Current Interpretive Data was last revised on 2017. Eosinophil pct 2.6 % [facility] Comment: Interpretive Data Percent cell count reference ranges are not reported, since discordance with absolute values may lead to misinterpretation of CBC data. Current Interpretive Data was last revised on 2017. Basophil pct 0.7 % [facility] Comment: Interpretive Data Percent cell count reference ranges are not reported, since discordance with absolute values may lead to misinterpretation of CBC data. Current Interpretive Data was last revised on 2017. Blood 06/18/2022 8:52 AM CDT 06/18/2022 8:58 AM CDT Marcelina Lo [employer] [facility] [employer]NALY[employer] LAB BLOOD ORDERABLES Final Re sult Performing Organization Address [facility] Co de Phone Number [facility] [place] [address] * (ABNORMAL) Magnesium (06/18/2022 8:52 AM CDT) [facility] Magnesium 2.9(H) 1.4 - 2.5 mg/dL [facility] Blood 06/18/2022 8:52 AM CDT 06/18/2022 8:58 AM CDT Marcelina Lo [employer] [facility] [facility] [employer]NALYST LAB BLOOD ORDERABLES Final Re sult Performing Organization Address [facility] de Phone Number [facility] [place] [address] * (ABNORMAL) Comprehensive metabolic panel (06/18/2022 8:52 AM CDT) Pathologist [facility] Sodium 143 135 - 145 mmol/L [facility] Potassium, pl 4.0 3.3 - 4.9 mmol/L [facility] Chloride 104 97 - 110 mmol/L [facility] CO2 23 22 - 32 mmol/L [facility] Anion gap 16(H) 2 - 15 mmol/L [facility] BUN 40(H) 8 - 25 mg/dL [facility] Creatinine 6.24(H) 0.80 - 1.30 mg/dL [facility] Glucose 116 70 - 199 mg/dL [facility] Comment: Interpretive Data Fasting glucose [...] 2017. Calcium 9.5 8.5 - 10.3 mg/dL [facility] Bilirubin, total 0.4 0.1 - 1.2 mg/dL [facility] Protein, pl 7.4 6.5 - 8.5 g/dL [facility] Albumin 3.3(L) 3.5 - 5.0 g/dL [facility] Alk phos 197(H) 40 - 130 Units/L [facility] ALT 36 7 - 55 Units/L [facility] AST 60(H) 10 - 50 Units/L [facility] Blood 06/18/2022 8:52 AM CDT 06/18/2022 8:58 AM CDT us Marcelina Lo NP LAB BLOOD ORDERABLES Final Re sult [facility] Department [place] [address] * (ABNORMAL) CBC with auto differential (06/18/2022 8:52 AM CDT) Pathologist [facility] WBC 8.9 3.8 - 9.9 K/cumm [facility] Hgb 8.8(L) 13.0 - 17.5 g/dL [facility] Hct 27.1(L) 38.9 - 50.3 % [facility] Plt 283 150 - 400 K/cumm [facility] MPV 9.7 9.1 - 12.3 fL [facility] RBC 2.81(L) 4.30 - 5.80 M/cumm [facility] MCV 96.4 81.3 - 96.4 fL [facility] MCH 31.3 27.1 - 33.3 pg [facility] MCHC 32.5 32.3 - 35.7 g/dL [facility] RDW CV 16.2(H) 11.1 - 14.9 % [facility] RDW SD 54.0(H) 35.7 - 48.1 fL [facility] NRBC abs 0.00 0.00 - 0.01 K/cumm [facility] Blood 06/18/2022 8:52 AM CDT 06/18/2022 8:58 AM CDT us Marcelina Lo [employer] [facility] [facility] [employer]NALYST LAB BLOOD ORDERABLES Final Re sult Performing Organization Address City/[facility] Co de Phone Number [facility] Department [place] [address] * POCT glucose (06/18/2022 8:49 AM CDT) Glucose, POC 109 70 - 199 mg/dL [facility] Blood 06/18/2022 8:49 AM CDT 06/18/2022 8:49 AM CDT us Catherine Adams MD LAB POCT ORDERABLES - DEVIC E Final Result Performing Organization Address City/[facility] Co de Phone Number [facility] Department [place] [address] * POCT glucose (06/18/2022 6:53 AM CDT) Glucose, POC 145 70 - 199 mg/dL [facility] Blood 06/18/2022 6:53 AM CDT 06/18/2022 6:53 AM CDT us Catherine Adams MD LAB POCT ORDERABLES - DEVIC E Final Result Performing Organization Address City/[facility]/ZIP Co de Phone Number [facility] Department [place] [address] * POCT glucose (06/18/2022 6:11 AM CDT) Glucose, POC 164 70 - 199 mg/dL [facility] Blood 06/18/2022 6:11 AM CDT 06/18/2022 6:11 AM CDT Catherine Adams MD LAB POCT ORDERABLES - DEVIC E Final Result [facility] Department [place] [address] * XR Chest 1 View (06/18/2022 5:48 [...] CDT) aPTT 63(H) 27 - 37 sec [facility] Comment: Interpretive Data Therapeutic heparin range: 60.0 - 94.0 seconds. Based on correlation with therapeutic heparin activity range of 0.3-0.7 Units/mL. Current interpretive data was last revised on 2020. Blood 06/18/2022 5:13 AM CDT 06/18/2022 5:42 AM CDT Narrative [facility] - 06/18/2022 6:05 AM CDT Draw STAT PTT 6 hrs after initiation of heparin infusion, draw STAT PTT 6 hours after each dose/rate change, and every 6 hours until 2 consecutive PTTs are within therapeutic range. Once two consecutive PTT's are therapeutic (60-94.9 seconds), then draw PTT every AM until heparin is discontinued. Catherine Adams MD LAB BLOOD ORDERABLES Final Result [facility] Department [place] [address] * (ABNORMAL) Blood gas, arterial (06/18/2022 5:13 AM CDT) pH, Art 7.33(L) 7.35 - 7.45 [facility] PCO2, Arterial 39 35 - 45 mmHg [facility] PO2, Arterial 92 83 - 108 mmHg [facility] HCO3 Art (Calculated) 21 20 - 30 mmol/L [facility] BE, art -5 mmol/L [facility] Comment: Interpretive Data No Reference Range Established Current Interpretive Data was last revised on 2017 O2 Sat Art (Measured) 96(H) 90 - 95 % [facility] Blood 06/18/2022 5:13 AM CDT 06/18/2022 5:34 AM CDT us Marcelina Lo NP LAB BLOOD ORDERABLES Final Re sult Performing Organization Address City/[facility]/ZIP Co de Phone Number [facility] [place] [address] * (ABNORMAL) POCT glucose (06/18/2022 5:10 AM CDT) Glucose, POC 205(H) 70 - 199 mg/dL [facility] Blood 06/18/2022 5:10 AM CDT 06/18/2022 5:10 AM CDT Catherine Adams MD LAB POCT ORDERABLES - DEVIC E Final Result Performing Organization Address City/[facility] Co de Phone Number [facility] [place] [address] * POCT glucose (06/18/2022 4:08 AM CDT) Glucose, POC 186 70 - 199 mg/dL [facility] Blood 06/18/2022 4:08 AM CDT 06/18/2022 4:08 AM CDT Catherine Adams MD LAB POCT ORDERABLES - DEVIC E Final Result Performing Organization Address City/[facility]/ZIP Co de Phone Number [place] [address] * POCT glucose (06/18/2022 3:24 AM CDT) Glucose, POC 179 70 - 199 mg/dL [facility] Blood 06/18/2022 3:24 AM CDT 06/18/2022 3:24 AM CDT us Catherine Adams MD LAB POCT ORDERABLES - DEVIC E Final Result Performing Organization Address City/[facility] Co de Phone Number [facility] [place] [address] * POCT glucose (06/18/2022 2:25 AM CDT) Glucose, POC 132 70 - 199 mg/dL [facility] Blood 06/18/2022 2:25 AM CDT 06/18/2022 2:25 AM CDT us Catherine Adams MD LAB POCT ORDERABLES - DEVIC E Final Result Performing Organization Address [facility] de Phone Number [facility] [place] [address] * POCT glucose (06/18/2022 1:27 AM CDT) Glucose, POC 105 70 - 199 mg/dL [facility] Blood 06/18/2022 1:27 AM CDT 06/18/2022 1:27 AM CDT us Catherine Adams MD LAB POCT ORDERABLES - DEVIC E Final Result Performing Organization Address [facility] [place] [address] * POCT glucose (06/17/2022 10:45 PM CDT) Glucose, POC 138 70 - 199 mg/dL [facility] Blood 06/17/2022 10:4 5 PM CDT 06/17/2022 10:45 PM CDT us Catherine Adams MD LAB POCT ORDERABLES - DEVIC E Final Result Performing Organization Address [facility] Co de Phone Number [place] [address] * (ABNORMAL) Hemoglobin and hematocrit (06/17/2022 10:31 PM CDT) [facility] Hgb 7.9(L) 13.0 - 17.5 g/dL [facility] Hct 24.0(L) 38.9 - 50.3 % [facility] Blood 06/17/2022 10:3 1 PM CDT 06/17/2022 10:45 PM CDT Tyra De La Torre MD LAB BLOOD ORDERABLES Final Resu lt Performing Organization Address [facility] [place] [address] * Type and screen (06/17/2022 10:31 PM CDT) [facility] Maribel, indirect Negative [facility] ABO Rh A Positive [facility] Blood 06/17/2022 10:3 1 PM CDT 06/17/2022 10:53 PM CDT Narrative [facility] - 06/17/2022 11:49 PM CDT Has the patient had Daratumumab or Isatuximab in the past 6 months?->Unknown us Catherine Adams MD LAB BLOOD BANK TEST ORDERAB LES Final Result Performing Organization Address [facility] Co de Phone Number [facility] [place] [address] * (ABNORMAL) eGFR (06/17/2022 9:17 PM CDT) [facility] eGFR 11(L) 90 - 130 mL/min/1. 73 m2 [facility] Comment: Interpretive Data Reference Interval [...] BLOOD ORDERABLES Final Result Performing Organization Address [facility] Co de Phone Number [facility] Department [place] [address] * (ABNORMAL) Magnesium (06/17/2022 9:17 PM CDT) Magnesium 2.9(H) 1.4 - 2.5 mg/dL [facility] Blood 06/17/2022 9:17 PM CDT 06/17/2022 9:27 PM CDT Catherine Adams MD LAB BLOOD ORDERABLES Final Result Performing Organization Address [facility] de Phone Number [facility] Department [place] [address] * (ABNORMAL) Comprehensive metabolic panel (06/17/2022 9:17 PM CDT) Sodium 142 135 - 145 mmol/L [facility] Potassium, pl 3.2(L) 3.3 - 4.9 mmol/L [facility] Chloride 104 97 - 110 mmol/L [facility] CO2 23 22 - 32 mmol/L [facility] Anion gap 15 2 - 15 mmol/L [facility] BUN 41(H) 8 - 25 mg/dL [facility] Creatinine 5.65(H) 0.80 - 1.30 mg/dL [facility] Glucose 121 70 - 199 mg/dL [facility] Comment: Interpretive Data Fasting glucose [...] 2017. Calcium 9.3 8.5 - 10.3 mg/dL [facility] Bilirubin, total 0.4 0.1 - 1.2 mg/dL [facility] Protein, pl 6.4(L) 6.5 - 8.5 g/dL [facility] Albumin 2.7(L) 3.5 - 5.0 g/dL [facility] Alk phos 181(H) 40 - 130 Units/L [facility] ALT 33 7 - 55 Units/L [facility] AST 52(H) 10 - 50 Units/L [facility] Blood 06/17/2022 9:17 PM CDT 06/17/2022 9:27 PM CDT us Catherine Adams MD LAB BLOOD ORDERABLES Final Result [facility] Department [place] [address] * (ABNORMAL) Differential, auto (06/17/2022 9:17 PM CDT) Neutrophil abs 4.5 1.7 - 6.5 K/cumm [facility] Imm gran abs 0.1 0.0 - 0.1 K/cumm [facility] Lymphocyte abs 1.5 0.8 - 3.3 K/cumm [facility] Monocyte abs 1.4(H) 0.2 - 0.8 K/cumm [facility] Eosinophil abs 0.3 0.0 - 0.5 K/cumm [facility] Basophil abs 0.0 0.0 - 0.1 K/cumm [facility] Neutrophil pct 58.5 % [facility] Comment: Interpretive Data Percent cell count reference ranges are not reported, since discordance with absolute values may lead to misinterpretation of CBC data. Current Interpretive Data was last revised on 2017. Imm gran pct 1.0 % [facility] Comment: Interpretive Data Percent cell count reference ranges are not reported, since discordance with absolute values may lead to misinterpretation of CBC data. Current Interpretive Data was last revised on 2017. Lymphocyte pct 19.0 % [facility] Comment: Interpretive Data Percent cell count reference ranges are not reported, since discordance with absolute values may lead to misinterpretation of CBC data. Current Interpretive Data was last revised on 2017. Monocyte pct 17.6 % [facility] Comment: Interpretive Data Percent cell count reference ranges are not reported, since discordance with absolute values may lead to misinterpretation of CBC data. Current Interpretive Data was last revised on 2017. Eosinophil pct 3.5 % [facility] Comment: Interpretive Data Percent cell count reference ranges are not reported, since discordance with absolute values may lead to misinterpretation of CBC data. Current Interpretive Data was last revised on 2017. Basophil pct 0.4 % [facility] Comment: Interpretive Data Percent cell count reference ranges are not reported, since discordance with absolute values may lead to misinterpretation of CBC data. Current Interpretive Data was last revised on 2017. Blood 06/17/2022 9:17 PM CDT 06/17/2022 9:26 PM CDT Marcelina Lo [facility] [facility] [facility] ANALYST LAB BLOOD ORDERABLES Final Re sult Performing Organization Address [facility] Co de Phone Number [facility] [place] [address] * Lactate (06/17/2022 9:17 PM CDT) Lactate 1.3 0.7 - 2.0 mmol/L [facility] Blood 06/17/2022 9:17 PM CDT 06/17/2022 9:29 PM CDT Catherine Adams MD LAB BLOOD ORDERABLES Final Result Performing Organization Address [facility] de Phone Number [facility] Department [place] [address] * (ABNORMAL) Triglycerides (06/17/2022 9:17 PM CDT) Triglycerides 272(H) <=149 mg/dL [facility] Comment: Interpretive Data Ages < [...] PM CDT 06/17/2022 9:27 PM CDT Narrative [facility] - 06/17/2022 10:11 PM CDT While on propofol infusion. Catherine Adams MD LAB BLOOD ORDERABLES Final Result Performing Organization Address City/[facility]/ZIP Co de Phone Number [facility] [place] [address] * (ABNORMAL) Phosphorus (06/17/2022 9:17 PM CDT) Phosphorus, pl 5.8(H) 2.3 - 4.5 mg/dL [facility] Blood 06/17/2022 9:17 PM CDT 06/17/2022 9:27 PM CDT Marcelina Lo [facility] [facility] ANALYST LAB BLOOD ORDERABLES Final Re sult Performing Organization Address [facility] Co de Phone Number [facility] Department [place] [address] * Beta-hydroxybutyrate (06/17/2022 9:17 PM CDT) Beta-Hydroxybut yrate 0.1 0.0 - 0.5 mmol/L [facility] Blood 06/17/2022 9:17 PM CDT 06/17/2022 9:26 PM CDT Marcelina Lo [facility] [facility] ANALYST LAB BLOOD ORDERABLES Final Re sult Performing Organization Address City/[facility] Co de Phone Number [facility] Department [place] [address] * Lipase (06/17/2022 9:17 PM CDT) Pathologist [facility] Lipase 22 10 - 99 Units/L [facility] Blood 06/17/2022 9:17 PM CDT 06/17/2022 9:27 PM CDT Marcelina Lo [facility] [facility] ANALYST LAB BLOOD ORDERABLES Final Re sult [facility] [place] [address] * (ABNORMAL) CBC with auto differential (06/17/2022 9:17 PM CDT) [facility] WBC 7.7 3.8 - 9.9 K/cumm [facility] Hgb 6.2(C) 13.0 - 17.5 g/dL [facility] Comment:Critical result call ed to and read back by MINERVA CLINTON RN on 06 17 2022 at 2214 to BRIAN BATES. Hct 19.1(L) 38.9 - 50.3 % [facility] Plt 300 150 - 400 K/cumm [facility] MPV 10.1 9.1 - 12.3 fL [facility] RBC 1.98(L) 4.30 - 5.80 M/cumm [facility] MCV 96.5(H) 81.3 - 96.4 fL [facility] MCH 31.3 27.1 - 33.3 pg [facility] MCHC 32.5 32.3 - 35.7 g/dL [facility] RDW CV 15.9(H) 11.1 - 14.9 % [facility] RDW SD 50.9(H) 35.7 - 48.1 fL [facility] NRBC abs 0.00 0.00 - 0.01 K/cumm [facility] Blood 06/17/2022 9:17 PM CDT 06/17/2022 9:26 PM CDT Marcelina Lo [facility] [facility] ANALYST LAB BLOOD ORDERABLES Final Re sult Performing Organization Address [facility] Co de Phone Number [facility] Department [place] [address] * POCT glucose (06/17/2022 8:52 PM CDT) Glucose, POC 129 70 - 199 mg/dL [facility] Blood 06/17/2022 8:52 PM CDT 06/17/2022 8:52 PM CDT Catherine Adams MD LAB POCT ORDERABLES - DEVIC E Final Result Performing Organization Address [facility] de Phone Number [facility] [place] [address] * POCT glucose (06/17/2022 7:40 PM CDT) Glucose, POC 118 70 - 199 mg/dL [facility] Blood 06/17/2022 7:40 PM CDT 06/17/2022 7:40 PM CDT Catherine Adams MD LAB POCT ORDERABLES - DEVIC E Final Result Performing Organization Address [facility] Co de Phone Number [facility] [place] [address] * MT INSJ NON-TUNNELED CENTRAL VENOUS CATH AGE 3 YR/> (06/17/2022 7:30 PM CDT) Narrative Rufino Flores MD - 06/17/2022 7:30 PM CDT Aj Poe MD ? 06/17/2022 ??7:37 PM Central Line Insertion Date/Time: 06/17/2022 7:30 PM Performed by: Aj Poe MD Authorized by: Aj Poe MD [place] Protocol: RN Notified of Procedure: yes ?? 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 Department [place] [address] * POCT glucose (06/17/2022 3:01 PM CDT) Glucose, POC 142 70 - 199 mg/dL [facility] Blood 06/17/2022 3:01 PM CDT 06/17/2022 3:01 PM CDT Catherine Adams MD LAB POCT ORDERABLES - DEVIC E Final Result Performing Organization Address City/[facility]/ZIP Co de Phone Number [facility] [place] [address] * POCT glucose (06/17/2022 1:50 PM CDT) Glucose, POC 141 70 - 199 mg/dL [facility] Blood 06/17/2022 1:50 PM CDT 06/17/2022 1:50 PM CDT Catherine Adams MD LAB POCT ORDERABLES - DEVIC E Final Result Performing Organization Address City/[facility] Co de Phone Number [facility] [place] [address] * POCT glucose (06/17/2022 12:59 PM CDT) Glucose, POC 151 70 - 199 mg/dL [facility] Blood 06/17/2022 12:5 9 PM CDT 06/17/2022 12:59 PM CDT Catherine Adams MD LAB POCT ORDERABLES - DEVIC E Final Result Performing Organization Address City/[facility] Co de Phone Number [facility] [place] [address] * POCT glucose (06/17/2022 11:55 AM CDT) Glucose, POC 167 70 - 199 mg/dL [facility] Blood 06/17/2022 11:5 5 AM CDT 06/17/2022 11:55 AM CDT us Catherine Adams MD LAB POCT ORDERABLES - DEVIC E Final Result Performing Organization Address City/[facility] Co de Phone Number [place] [address] * POCT glucose (06/17/2022 10:51 AM CDT) Glucose, POC 185 70 - 199 mg/dL [facility] Blood 06/17/2022 10:5 1 AM CDT 06/17/2022 10:51 AM CDT Catherine Adams MD LAB POCT ORDERABLES - DEVIC E Final Result Performing Organization Address City/[facility] Co de Phone Number [facility] [place] [address] * POCT glucose (06/17/2022 10:11 AM CDT) Glucose, POC 119 70 - 199 mg/dL [facility] Blood 06/17/2022 10:1 1 AM CDT 06/17/2022 10:11 AM CDT Catherine Adams MD LAB POCT ORDERABLES - DEVIC E Final Result Performing Organization Address City/[facility] Co de Phone Number [place] [address] * POCT glucose (06/17/2022 9:39 AM CDT) Glucose, POC 181 70 - 199 mg/dL [facility] Blood 06/17/2022 9:39 AM CDT 06/17/2022 9:39 AM CDT Catherine Adams MD LAB POCT ORDERABLES - DEVIC E Final Result Performing Organization Address [facility] Foundation/[facility] Co de Phone Number ALESSANDRA CARRION [facility] [place] [address] * Blood culture Blood (06/17/2022 8:13 AM CDT) Report Final Report: No growth [facility] Blood 06/17/2022 8:13 AM CDT 06/17/2022 8:24 [...] organism identification may be performed using the HearMeOutigene Gram-Positive Blood Culture Assay. This assay detects microbial DNA in positive blood culture broth via hybridization of target DNA to capture oligonucleotides on a microarray. This assay has been cleared by the [place] Food and Drug Administration and its performance characteristics have been verified by the [facility] Microbiology Laboratory. 5. ?For questions about this culture, contact the Microbiology Laboratory at [phone]. Interpretive data was last revised on 2020. Catherine Adams MD LAB MICROBIOLOGY - GENERAL ORDERABLES Final Result Performing Organization Address City/[facility]/ZIP Co de Phone Number ALESSANDRA CARRION [facility] Department [place] [address] * Blood culture Blood (06/17/2022 8:13 AM [...] organism identification may be performed using the HearMeOutigene Gram-Positive Blood Culture Assay. This assay detects microbial DNA in positive blood culture broth via hybridization of target DNA to capture oligonucleotides on a microarray. This assay has been cleared by the [place] Food and Drug Administration and its performance characteristics have been verified by the [facility] Microbiology Laboratory. 5. ?For questions about this culture, contact the Microbiology Laboratory at [phone]. Interpretive data was last revised on 2020. Catherine Adams MD LAB MICROBIOLOGY - GENERAL ORDERABLES Final Result ALESSANDRA CARRION [facility] Department [place] [address] * (ABNORMAL) eGFR (06/17/2022 8:02 AM CDT) eGFR 13(L) 90 - 130 mL/min/1. 73 m2 [facility] Comment: Interpretive Data Reference Interval Normal ?>/= [...] NP LAB BLOOD ORDERABLES Final Re sult [facility] Department of Laboratories [place], [place] [id number] * (ABNORMAL) Differential, auto (06/17/2022 8:02 AM CDT) Pathologist [facility] Neutrophil abs 5.2 1.7 - 6.5 K/cumm [facility] Imm gran abs 0.1 0.0 - 0.1 K/cumm [facility] Lymphocyte abs 1.6 0.8 - 3.3 K/cumm [facility] Monocyte abs 1.3(H) 0.2 - 0.8 K/cumm [facility] Eosinophil abs 0.2 0.0 - 0.5 K/cumm [facility] Basophil abs 0.1 0.0 - 0.1 K/cumm [facility] Neutrophil pct 61.7 % [facility] Comment: Interpretive Data Percent cell count reference ranges are not reported, since discordance with absolute values may lead to misinterpretation of CBC data. Current Interpretive Data was last revised on 2017. Imm gran pct 1.3 % [facility] Comment: Interpretive Data Percent cell count reference ranges are not reported, since discordance with absolute values may lead to misinterpretation of CBC data. Current Interpretive Data was last revised on 2017. Lymphocyte pct 18.6 % [facility] Comment: Interpretive Data Percent cell count reference ranges are not reported, since discordance with absolute values may lead to misinterpretation of CBC data. Current Interpretive Data was last revised on 2017. Monocyte pct 15.2 % [facility] Comment: Interpretive Data Percent cell count reference ranges are not reported, since discordance with absolute values may lead to misinterpretation of CBC data. Current Interpretive Data was last revised on 2017. Eosinophil pct 2.6 % [facility] Comment: Interpretive Data Percent cell count reference ranges are not reported, since discordance with absolute values may lead to misinterpretation of CBC data. Current Interpretive Data was last revised on 2017. Basophil pct 0.6 % [facility] Comment: Interpretive Data Percent cell count reference ranges are not reported, since discordance with absolute values may lead to misinterpretation of CBC data. Current Interpretive Data was last revised on 2017. Blood 06/17/2022 8:02 AM CDT 06/17/2022 8:25 AM CDT us Marcelina Lo NP LAB BLOOD ORDERABLES Final Re sult [facility] Department [place] [address] * (ABNORMAL) Magnesium (06/17/2022 8:02 AM CDT) Magnesium 2.9(H) 1.4 - 2.5 mg/dL [facility] Blood 06/17/2022 8:02 AM CDT 06/17/2022 8:25 AM CDT us Marcelina Lo [facility] [facility] LAB BLOOD ORDERABLES Final Re sult [facility] Department [place] [address] * (ABNORMAL) Comprehensive metabolic panel (06/17/2022 8:02 AM CDT) Sodium 140 135 - 145 mmol/L [facility] Potassium, pl 3.9 3.3 - 4.9 mmol/L [facility] Chloride 104 97 - 110 mmol/L [facility] CO2 24 22 - 32 mmol/L [facility] Anion gap 12 2 - 15 mmol/L [facility] BUN 41(H) 8 - 25 mg/dL [facility] Creatinine 5.16(H) 0.80 - 1.30 mg/dL [facility] Glucose 206(H) 70 - 199 mg/dL [facility] Comment: Interpretive Data Fasting glucose [...] 2017. Calcium 9.1 8.5 - 10.3 mg/dL [facility] Bilirubin, total 0.4 0.1 - 1.2 mg/dL [facility] Protein, pl 6.9 6.5 - 8.5 g/dL [facility] Albumin 3.0(L) 3.5 - 5.0 g/dL [facility] Alk phos 199(H) 40 - 130 Units/L [facility] ALT 35 7 - 55 Units/L [facility] AST 43 10 - 50 Units/L [facility] Blood 06/17/2022 8:02 AM CDT 06/17/2022 8:25 AM CDT Marcelina Lo [employer] [facility] [facility] LAB BLOOD ORDERABLES Final Re sult Performing Organization Address City/[facility]/ZIP Co de Phone Number [facility] Department [place] [address] * (ABNORMAL) CBC with auto differential (06/17/2022 8:02 AM CDT) WBC 8.5 3.8 - 9.9 K/cumm [facility] Hgb 7.9(L) 13.0 - 17.5 g/dL [facility] Hct 24.6(L) 38.9 - 50.3 % [facility] Plt 262 150 - 400 K/cumm [facility] MPV 10.1 9.1 - 12.3 fL [facility] RBC 2.55(L) 4.30 - 5.80 M/cumm [facility] MCV 96.5(H) 81.3 - 96.4 fL [facility] MCH 31.0 27.1 - 33.3 pg [facility] MCHC 32.1(L) 32.3 - 35.7 g/dL [facility] RDW CV 15.6(H) 11.1 - 14.9 % [facility] RDW SD 49.9(H) 35.7 - 48.1 fL [facility] NRBC abs 0.00 0.00 - 0.01 K/cumm [facility] Blood 06/17/2022 8:02 AM CDT 06/17/2022 8:25 AM CDT Marcelina Lo [facility] [facility] LAB BLOOD ORDERABLES Final Re sult Performing Organization Address City/State/[facility] Co de Phone Number [facility] Department [place] [address] * (ABNORMAL) POCT glucose (06/17/2022 7:37 AM CDT) Glucose, POC 202(H) 70 - 199 mg/dL [facility] Blood 06/17/2022 7:37 AM CDT 06/17/2022 7:37 AM CDT us Catherine Adams MD LAB POCT ORDERABLES - DEVIC E Final Result Performing Organization Address [facility] [place] [address] * (ABNORMAL) aPTT (06/17/2022 6:14 AM CDT) aPTT 64(H) 27 - 37 sec [facility] Comment: Interpretive Data Therapeutic heparin range: 60.0 - 94.0 seconds. Based on correlation with therapeutic heparin activity range of 0.3-0.7 Units/mL. Current interpretive data was last revised on 2020. Blood 06/17/2022 6:14 AM CDT 06/17/2022 7:27 AM CDT Narrative [facility] - 06/17/2022 7:50 AM CDT [...] BLOOD ORDERABLES Final Result Performing Organization Address [facility] Co de Phone Number [facility] [place] [address] * (ABNORMAL) POCT glucose (06/17/2022 6:13 AM CDT) Glucose, POC 234(H) 70 - 199 mg/dL [facility] Blood 06/17/2022 6:13 AM CDT 06/17/2022 6:13 AM CDT Catherine Adams MD LAB POCT ORDERABLES - DEVIC E Final Result [facility] Department [place] [address] * XR Chest 1 View (06/17/2022 5:29 [...] POCT glucose (06/17/2022 4:53 AM CDT) Pathologist [facility] Glucose, POC 176 70 - 199 mg/dL [facility] Blood 06/17/2022 4:53 AM CDT 06/17/2022 4:53 AM CDT Catherine Adams MD LAB POCT ORDERABLES - DEVIC E Final Result Performing Organization Address [facility] de Phone Number [facility] [place] [address] * (ABNORMAL) Blood gas, arterial (06/17/2022 3:46 AM CDT) [facility] pH, Art 7.32(L) 7.35 - 7.45 [facility] PCO2, Arterial 44 35 - 45 mmHg [facility] PO2, Arterial 93 83 - 108 mmHg [facility] HCO3 Art (Calculated) 24 20 - 30 mmol/L [facility] BE, art -3 mmol/L [facility] Comment: Interpretive Data No Reference Range Established Current Interpretive Data was last revised on 2017 O2 Sat Art (Measured) 96(H) 90 - 95 % [facility] Blood 06/17/2022 3:46 AM CDT 06/17/2022 3:52 AM CDT Marcelina Lo [facility] [facility] LAB BLOOD ORDERABLES Final Re sult Performing Organization Address [facility] de Phone Number [facility] [place] [address] * POCT glucose (06/17/2022 3:44 AM CDT) Glucose, POC 94 70 - 199 mg/dL [facility] Blood 06/17/2022 3:44 AM CDT 06/17/2022 3:44 AM CDT Catherine Adams MD LAB POCT ORDERABLES - DEVIC E Final Result Performing Organization Address City/[facility] Co de Phone Number [facility] [place] [address] * POCT glucose (06/17/2022 2:52 AM CDT) Glucose, POC 119 70 - 199 mg/dL [facility] Blood 06/17/2022 2:52 AM CDT 06/17/2022 2:52 AM CDT Catherine Adams MD LAB POCT ORDERABLES - DEVIC E Final Result Performing Organization Address [facility] Co de Phone Number [place] [address] * POCT glucose (06/17/2022 1:52 AM CDT) Glucose, POC 127 70 - 199 mg/dL [facility] Blood 06/17/2022 1:52 AM CDT 06/17/2022 1:52 AM CDT Catherine Adams MD LAB POCT ORDERABLES - DEVIC E Final Result Performing Organization Address City/[facility] de Phone Number [place] [address] * POCT glucose (06/17/2022 12:36 AM CDT) Glucose, POC 165 70 - 199 mg/dL [facility] Blood 06/17/2022 12:3 6 AM CDT 06/17/2022 12:36 AM CDT Catherine Adams MD LAB POCT ORDERABLES - DEVIC E Final Result Performing Organization Address [facility] de Phone Number [facility] [place] [address] * (ABNORMAL) aPTT (06/17/2022 12:36 AM CDT) aPTT 67(H) 27 - 37 sec [facility] Comment: Interpretive Data Therapeutic heparin range: 60.0 - 94.0 seconds. Based on correlation with therapeutic heparin activity range of 0.3-0.7 Units/mL. Current interpretive data was last revised on 2020. Blood 06/17/2022 12:3 6 AM CDT 06/17/2022 1:04 AM CDT Narrative [facility] - 06/17/2022 1:09 AM CDT [...] BLOOD ORDERABLES Final Result Performing Organization Address [facility] de Phone Number [facility] Department [place] [address] * (ABNORMAL) Blood gas, arterial (06/16/2022 11:19 PM CDT) pH, Art 7.38 7.35 - 7.45 [facility] PCO2, Arterial 37 35 - 45 mmHg [facility] PO2, Arterial 99 83 - 108 mmHg [facility] HCO3 Art (Calculated) 22 20 - 30 mmol/L [facility] BE, art -3 mmol/L [facility] Comment: Interpretive Data No Reference Range Established Current Interpretive Data was last revised on 2017 O2 Sat Art (Measured) 97(H) 90 - 95 % [facility] Blood 06/16/2022 11:1 9 PM CDT 06/16/2022 11:24 PM CDT us Marcelina Lo [facility] [facility] LAB BLOOD ORDERABLES Final Re sult Performing Organization Address [facility] Co de Phone Number [facility] [place] [address] * POCT glucose (06/16/2022 11:11 PM CDT) Glucose, POC 172 70 - 199 mg/dL [facility] Blood 06/16/2022 11:1 1 PM CDT 06/16/2022 11:11 PM CDT us Catherine Adams MD LAB POCT ORDERABLES - DEVIC E Final Result Performing Organization Address [facility] Co de Phone Number [facility] [place] [address] * POCT glucose (06/16/2022 10:07 PM CDT) Glucose, POC 166 70 - 199 mg/dL [facility] Blood 06/16/2022 10:0 7 PM CDT 06/16/2022 10:07 PM CDT us Catherine Adams MD LAB POCT ORDERABLES - DEVIC E Final Result Performing Organization Address City/[facility] Co de Phone Number [place] [address] * XR Chest 1 View (06/16/2022 9:03 [...] * (ABNORMAL) eGFR (06/16/2022 8:52 PM CDT) [facility] eGFR 14(L) 90 - 130 mL/min/1. 73 m2 [facility] Comment: Interpretive Data Reference Interval Normal ?>/= [...] 06/16/2022 9:10 PM CDT us Marcelina Lo [facility] [facility] LAB BLOOD ORDERABLES Final Re sult [facility] Department [place] [address] * (ABNORMAL) Differential, auto (06/16/2022 8:52 PM CDT) Pathologist [facility] Neutrophil abs 5.4 1.7 - 6.5 K/cumm [facility] Imm gran abs 0.2(H) 0.0 - 0.1 K/cumm [facility] Lymphocyte abs 1.0 0.8 - 3.3 K/cumm [facility] Monocyte abs 1.1(H) 0.2 - 0.8 K/cumm [facility] Eosinophil abs 0.2 0.0 - 0.5 K/cumm [facility] Basophil abs 0.0 0.0 - 0.1 K/cumm [facility] Neutrophil pct 68.6 % [facility] Comment: Interpretive Data Percent cell count reference ranges are not reported, since discordance with absolute values may lead to misinterpretation of CBC data. Current Interpretive Data was last revised on 2017. Imm gran pct 2.0 % [facility] Comment: Interpretive Data Percent cell count reference ranges are not reported, since discordance with absolute values may lead to misinterpretation of CBC data. Current Interpretive Data was last revised on 2017. Lymphocyte pct 12.9 % [facility] Comment: Interpretive Data Percent cell count reference ranges are not reported, since discordance with absolute values may lead to misinterpretation of CBC data. Current Interpretive Data was last revised on 2017. Monocyte pct 14.3 % [facility] Comment: Interpretive Data Percent cell count reference ranges are not reported, since discordance with absolute values may lead to misinterpretation of CBC data. Current Interpretive Data was last revised on 2017. Eosinophil pct 1.9 % [facility] Comment: Interpretive Data Percent cell count reference ranges are not reported, since discordance with absolute values may lead to misinterpretation of CBC data. Current Interpretive Data was last revised on 2017. Basophil pct 0.3 % [facility] Comment: Interpretive Data Percent cell count reference ranges are not reported, since discordance with absolute values may lead to misinterpretation of CBC data. Current Interpretive Data was last revised on 2017. Blood 06/16/2022 8:52 PM CDT 06/16/2022 9:02 PM CDT us Marcelina Lo NP LAB BLOOD ORDERABLES Final Re sult [facility] [place] [address] * Lactate (06/16/2022 8:52 PM CDT) Lactate 1.1 0.7 - 2.0 mmol/L [facility] Blood 06/16/2022 8:52 PM CDT 06/16/2022 9:10 PM CDT us Catherine Adams MD LAB BLOOD ORDERABLES Final Result Performing Organization Address [facility] Co de Phone Number [facility] [place] [address] * (ABNORMAL) Triglycerides (06/16/2022 8:52 PM CDT) Pathologist [facility] Triglycerides 253(H) <=149 mg/dL [facility] Comment: Interpretive Data Ages < [...] PM CDT 06/16/2022 9:10 PM CDT Narrative [facility] - 06/16/2022 9:44 PM CDT While on propofol infusion. Catherine Adams MD LAB BLOOD ORDERABLES Final Result Performing Organization Address [facility] de Phone Number [facility] Department [place] [address] * (ABNORMAL) Phosphorus (06/16/2022 8:52 PM CDT) Pathologist [facility] Phosphorus, pl 5.4(H) 2.3 - 4.5 mg/dL [facility] Blood 06/16/2022 8:52 PM CDT 06/16/2022 9:10 PM CDT Marcelina Lo [facility] [facility] LAB BLOOD ORDERABLES Final Re sult Performing Organization Address [facility] Co de Phone Number [facility] [place] [address] * Beta-hydroxybutyrate (06/16/2022 8:52 PM CDT) Pathologist [facility] Beta-Hydroxybut yrate 0.1 0.0 - 0.5 mmol/L [facility] Blood 06/16/2022 8:52 PM CDT 06/16/2022 9:02 PM CDT Marcelina Lo [facility] LAB BLOOD ORDERABLES Edited R esult - Final Performing Organization Address [facility] Co de Phone Number [facility] [place] [address] * Lipase (06/16/2022 8:52 PM CDT) Lipase 26 10 - 99 Units/L [facility] Blood 06/16/2022 8:52 PM CDT 06/16/2022 9:10 PM CDT Marcelina Lo [facility] LAB BLOOD ORDERABLES Final Re sult Performing Organization Address [facility] Co de Phone Number [facility] [employer] [place], [place] [id number] * (ABNORMAL) Magnesium (06/16/2022 8:52 PM CDT) Magnesium 3.0(H) 1.4 - 2.5 mg/dL [facility] Blood 06/16/2022 8:52 PM CDT 06/16/2022 9:10 PM CDT us Marcelina Lo NP LAB BLOOD ORDERABLES Final Re sult [facility] [place] [address] * (ABNORMAL) Comprehensive metabolic panel (06/16/2022 8:52 PM CDT) Pathologist [facility] Sodium 140 135 - 145 mmol/L [facility] Potassium, pl 4.0 3.3 - 4.9 mmol/L [facility] Chloride 104 97 - 110 mmol/L [facility] CO2 25 22 - 32 mmol/L [facility] Anion gap 11 2 - 15 mmol/L [facility] BUN 36(H) 8 - 25 mg/dL [facility] Creatinine 4.65(H) 0.80 - 1.30 mg/dL [facility] Glucose 197 70 - 199 mg/dL [facility] Comment: Interpretive Data Fasting glucose [...] Calcium 9.3 8.5 - 10.3 mg/dL [facility] Bilirubin, total 0.4 0.1 - 1.2 mg/dL [facility] Protein, pl 6.5 6.5 - 8.5 g/dL [facility] Albumin 2.7(L) 3.5 - 5.0 g/dL [facility] Alk phos 197(H) 40 - 130 Units/L [facility] ALT 35 7 - 55 Units/L [facility] AST 36 10 - 50 Units/L [facility] Blood 06/16/2022 8:52 PM CDT 06/16/2022 9:10 PM CDT Marcelina Lo [facility] LAB BLOOD ORDERABLES Final Re sult Performing Organization Address [facility] Co de Phone Number [facility] Department [place] [address] * (ABNORMAL) CBC with auto differential (06/16/2022 8:52 PM CDT) Pathologist [facility] WBC 7.9 3.8 - 9.9 K/cumm [facility] Hgb 7.4(L) 13.0 - 17.5 g/dL [facility] Hct 22.8(L) 38.9 - 50.3 % [facility] Plt 214 150 - 400 K/cumm [facility] MPV 10.1 9.1 - 12.3 fL [facility] RBC 2.41(L) 4.30 - 5.80 M/cumm [facility] MCV 94.6 81.3 - 96.4 fL [facility] MCH 30.7 27.1 - 33.3 pg [facility] MCHC 32.5 32.3 - 35.7 g/dL [facility] RDW CV 14.9 11.1 - 14.9 % [facility] RDW SD 47.8 35.7 - 48.1 fL [facility] NRBC abs 0.00 0.00 - 0.01 K/cumm [facility] Blood 06/16/2022 8:52 PM CDT 06/16/2022 9:02 PM CDT Marcelina Lo [facility] [facility] LAB BLOOD ORDERABLES Final Re sult Performing Organization Address City/[facility]/ZIP Co de Phone Number [facility] Department [place] [address] * (ABNORMAL) POCT glucose (06/16/2022 8:06 PM CDT) Glucose, POC 230(H) 70 - 199 mg/dL [facility] Blood 06/16/2022 8:06 PM CDT 06/16/2022 8:06 PM CDT Catherine Adams MD LAB POCT ORDERABLES - DEVIC E Final Result Performing Organization Address [facility] de Phone Number [facility] [place] [address] * (ABNORMAL) POCT glucose (06/16/2022 7:16 PM CDT) Glucose, POC 250(H) 70 - 199 mg/dL [facility] Blood 06/16/2022 7:16 PM CDT 06/16/2022 7:16 PM CDT Catherine Adams MD LAB POCT ORDERABLES - DEVIC E Final Result Performing Organization Address [facility] de Phone Number [place] [address] * (ABNORMAL) POCT glucose (06/16/2022 5:52 PM CDT) Glucose, POC 328(H) 70 - 199 mg/dL [facility] Blood 06/16/2022 5:52 PM CDT 06/16/2022 5:52 PM CDT Catherine Adams MD LAB POCT ORDERABLES - DEVIC E Final Result Performing Organization Address [facility] [place] [address] * (ABNORMAL) aPTT (06/16/2022 4:49 PM CDT) aPTT 58(H) 27 - 37 sec [facility] Comment: Interpretive Data Therapeutic heparin range: 60.0 - 94.0 seconds. Based on correlation with therapeutic heparin activity range of 0.3-0.7 Units/mL. Current interpretive data was last revised on 2020. Blood 06/16/2022 4:49 PM CDT 06/16/2022 4:55 PM CDT Narrative [facility] [facility] - 06/16/2022 5:35 PM CDT [...] BLOOD ORDERABLES Final Result Performing Organization Address City/[facility]/ZIP Co de Phone Number [facility] [place] [address] * (ABNORMAL) POCT glucose (06/16/2022 4:41 PM CDT) Pathologist [facility] Glucose, POC 305(H) 70 - 199 mg/dL [facility] Blood 06/16/2022 4:41 PM CDT 06/16/2022 4:41 PM CDT Catherine Adams MD LAB POCT ORDERABLES - DEVIC E Final Result Performing Organization Address City/[facility] Co de Phone Number [facility] [place] [address] * (ABNORMAL) Blood gas, arterial (06/16/2022 3:31 PM CDT) pH, Art 7.41 7.35 - 7.45 [facility] PCO2, Arterial 36 35 - 45 mmHg [facility] PO2, Arterial 82(L) 83 - 108 mmHg [facility] HCO3 Art (Calculated) 23 20 - 30 mmol/L [facility] BE, art -1 mmol/L [facility] Comment: Interpretive Data No Reference Range Established Current Interpretive Data was last revised on 2017 O2 Sat Art (Measured) 96(H) 90 - 95 % [facility] Blood 06/16/2022 3:31 PM CDT 06/16/2022 3:38 PM CDT us Marcelina Lo [facility] LAB BLOOD ORDERABLES Final Re sult Performing Organization Address [facility] Co de Phone Number [facility] [place] [address] * (ABNORMAL) POCT glucose (06/16/2022 3:27 PM CDT) Glucose, POC 316(H) 70 - 199 mg/dL [facility] Blood 06/16/2022 3:27 PM CDT 06/16/2022 3:27 PM CDT Catherine Adams MD LAB POCT ORDERABLES - DEVIC E Final Result Performing Organization Address [facility] Co de Phone Number [facility] Department [place] [address] * (ABNORMAL) POCT glucose (06/16/2022 1:00 PM CDT) Glucose, POC 327(H) 70 - 199 mg/dL [facility] Blood 06/16/2022 1:00 PM CDT 06/16/2022 1:00 PM CDT Catherine Adams MD LAB POCT ORDERABLES - DEVIC E Final Result Performing Organization Address City/[facility] Co de Phone Number [place] [address] * (ABNORMAL) eGFR (06/16/2022 12:57 PM CDT) eGFR 15(L) 90 - 130 mL/min/1. 73 m2 [facility] Comment: Interpretive Data Reference Interval [...] BLOOD ORDERABLES Final Result Performing Organization Address City/State/[facility] Co de Phone Number [facility] [place] [address] * (ABNORMAL) Basic metabolic panel (06/16/2022 12:57 PM CDT) Pathologist [facility] Sodium 137 135 - 145 mmol/L [facility] Potassium, pl 3.9 3.3 - 4.9 mmol/L [facility] Chloride 101 97 - 110 mmol/L [facility] CO2 26 22 - 32 mmol/L [facility] Anion gap 10 2 - 15 mmol/L [facility] BUN 33(H) 8 - 25 mg/dL [facility] Creatinine 4.34(H) 0.80 - 1.30 mg/dL [facility] Glucose 340(H) 70 - 199 mg/dL [facility] Comment: Interpretive Data Fasting glucose [...] 2017. Calcium 9.0 8.5 - 10.3 mg/dL [facility] Blood 06/16/2022 12:5 7 PM CDT 06/16/2022 2:29 PM CDT us Catherine Adams MD LAB BLOOD ORDERABLES Final Result Performing Organization Address City/[facility] Co de Phone Number [facility] Department [place] [address] * (ABNORMAL) Blood gas, arterial (06/16/2022 10:54 AM CDT) pH, Art 7.40 7.35 - 7.45 [facility] PCO2, Arterial 38 35 - 45 mmHg [facility] PO2, Arterial 66(L) 83 - 108 mmHg [facility] HCO3 Art (Calculated) 24 20 - 30 mmol/L [facility] BE, art -1 mmol/L [facility] Comment: Interpretive Data No Reference Range Established Current Interpretive Data was last revised on 2017 O2 Sat Art (Measured) 92 90 - 95 % [facility] Blood 06/16/2022 10:5 4 AM CDT 06/16/2022 11:01 AM CDT us Marcelina Lo NP LAB BLOOD ORDERABLES Final Re sult [facility] [place] [address] * (ABNORMAL) POCT glucose (06/16/2022 10:50 AM CDT) Glucose, POC 393(H) 70 - 199 mg/dL [facility] Blood 06/16/2022 10:5 0 AM CDT 06/16/2022 10:50 AM CDT Catherine Adams MD LAB POCT ORDERABLES - DEVIC E Final Result Performing Organization Address [facility] [place] [address] * (ABNORMAL) aPTT (06/16/2022 9:14 AM CDT) aPTT 54(H) 27 - 37 sec [facility] Comment: Interpretive Data Therapeutic heparin range: 60.0 - 94.0 seconds. Based on correlation with therapeutic heparin activity range of 0.3-0.7 Units/mL. Current interpretive data was last revised on 2020. Blood 06/16/2022 9:14 AM CDT 06/16/2022 9:33 AM CDT Narrative [facility] - 06/16/2022 9:58 AM CDT [...] BLOOD ORDERABLES Final Result Performing Organization Address [facility] Co de Phone Number [facility] Department [place] [address] * Beta-hydroxybutyrate (06/16/2022 7:54 AM CDT) Beta-Hydroxybut yrate 0.1 0.0 - 0.5 mmol/L [facility] Blood 06/16/2022 7:54 AM CDT 06/16/2022 8:10 AM CDT Catherine Adams MD LAB BLOOD ORDERABLES Final Result Performing Organization Address City/State/[facility] Co de Phone Number [facility] Department [place] [address] * (ABNORMAL) eGFR (06/16/2022 7:54 AM CDT) Pathologist [facility] eGFR 16(L) 90 - 130 mL/min/1. 73 m2 [facility] Comment: Interpretive Data Reference Interval [...] 06/16/2022 8:06 AM CDT us Marcelina Lo [facility]NALY[facility] LAB BLOOD ORDERABLES Final Re sult [facility] Department [place] [address] * (ABNORMAL) Differential, auto (06/16/2022 7:54 AM CDT) Neutrophil abs 6.3 1.7 - 6.5 K/cumm [facility] gran abs 0.4(H) 0.0 - 0.1 K/cumm [facility] Lymphocyte abs 1.0 0.8 - 3.3 K/cumm [facility] Monocyte abs 1.2(H) 0.2 - 0.8 K/cumm [facility] Eosinophil abs 0.2 0.0 - 0.5 K/cumm [facility] Basophil abs 0.0 0.0 - 0.1 K/cumm [facility] Neutrophil pct 69.4 % [facility] Comment: Interpretive Data Percent cell count reference ranges are not reported, since discordance with absolute values may lead to misinterpretation of CBC data. Current Interpretive Data was last revised on 2017. Imm gran pct 4.3 % [facility] Comment: Interpretive Data Percent cell count reference ranges are not reported, since discordance with absolute values may lead to misinterpretation of CBC data. Current Interpretive Data was last revised on 2017. Lymphocyte pct 11.0 % [facility] Comment: Interpretive Data Percent cell count reference ranges are not reported, since discordance with absolute values may lead to misinterpretation of CBC data. Current Interpretive Data was last revised on 2017. Monocyte pct 13.3 % [facility] Comment: Interpretive Data Percent cell count reference ranges are not reported, since discordance with absolute values may lead to misinterpretation of CBC data. Current Interpretive Data was last revised on 2017. Eosinophil pct 1.7 % [facility] Comment: Interpretive Data Percent cell count reference ranges are not reported, since discordance with absolute values may lead to misinterpretation of CBC data. Current Interpretive Data was last revised on 2017. Basophil pct 0.3 % [facility] Comment: Interpretive Data Percent cell count reference ranges are not reported, since discordance with absolute values may lead to misinterpretation of CBC data. Current Interpretive Data was last revised on 2017. Blood 06/16/2022 7:54 AM CDT 06/16/2022 8:06 AM CDT Marcelina Lo [facility]NALYST LAB BLOOD ORDERABLES Final Re sult Performing Organization Address [facility] Co de Phone Number [facility] Department [place] [address] * (ABNORMAL) Blood gas, arterial (06/16/2022 7:54 AM CDT) pH, Art 7.44 7.35 - 7.45 [facility] PCO2, Arterial 35 35 - 45 mmHg [facility] PO2, Arterial 58(L) 83 - 108 mmHg [facility] HCO3 Art (Calculated) 25 20 - 30 mmol/L [facility] BE, art 0 mmol/L [facility] Comment: Interpretive Data No Reference Range Established Current Interpretive Data was last revised on 2017 O2 Sat Art (Measured) 90 90 - 95 % [facility] Blood 06/16/2022 7:54 AM CDT 06/16/2022 8:01 AM CDT us Catherine Adams MD LAB BLOOD ORDERABLES Final Result Performing Organization Address [facility] Co de Phone Number [facility] Department [place] [address] * (ABNORMAL) Magnesium (06/16/2022 7:54 AM CDT) Magnesium 2.9(H) 1.4 - 2.5 mg/dL [facility] Blood 06/16/2022 7:54 AM CDT 06/16/2022 8:06 AM CDT us Marcelina Lo [facility]NA[facility] LAB BLOOD ORDERABLES Final Re sult [facility] Department [place] [address] * (ABNORMAL) Comprehensive metabolic panel (06/16/2022 7:54 AM CDT) Sodium 136 135 - 145 mmol/L [facility] Potassium, pl 4.2 3.3 - 4.9 mmol/L [facility] Chloride 100 97 - 110 mmol/L [facility] CO2 26 22 - 32 mmol/L [facility] Anion gap 10 2 - 15 mmol/L [facility] BUN 33(H) 8 - 25 mg/dL [facility] Creatinine 4.13(H) 0.80 - 1.30 mg/dL [facility] Glucose 434(H) 70 - 199 mg/dL [facility] Comment: Interpretive Data Fasting glucose [...] 2017. Calcium 8.9 8.5 - 10.3 mg/dL [facility] Bilirubin, total 0.4 0.1 - 1.2 mg/dL [facility] Protein, pl 6.2(L) 6.5 - 8.5 g/dL [facility] Albumin 3.1(L) 3.5 - 5.0 g/dL [facility] Alk phos 218(H) 40 - 130 Units/L [facility] ALT 36 7 - 55 Units/L [facility] AST 42 10 - 50 Units/L [facility] Blood 06/16/2022 7:54 AM CDT 06/16/2022 8:06 AM CDT Marcelina Lo [facility]NALYST LAB BLOOD ORDERABLES Final Re sult Performing Organization Address [facility] Co de Phone Number [facility] [place] [address] * (ABNORMAL) CBC with auto differential (06/16/2022 7:54 AM CDT) [facility] WBC 9.1 3.8 - 9.9 K/cumm [facility] Hgb 7.5(L) 13.0 - 17.5 g/dL [facility] Hct 22.8(L) 38.9 - 50.3 % [facility] Plt 214 150 - 400 K/cumm [facility] MPV 10.1 9.1 - 12.3 fL [facility] RBC 2.42(L) 4.30 - 5.80 M/cumm [facility] MCV 94.2 81.3 - 96.4 fL [facility] MCH 31.0 27.1 - 33.3 pg [facility] MCHC 32.9 32.3 - 35.7 g/dL [facility] RDW CV 14.6 11.1 - 14.9 % [facility] RDW SD 46.9 35.7 - 48.1 fL [facility] NRBC abs 0.02(H) 0.00 - 0.01 K/cumm [facility] Blood 06/16/2022 7:54 AM CDT 06/16/2022 8:06 AM CDT us Marcelina Lo [facility]NA[facility] LAB BLOOD ORDERABLES Final Re sult [facility] of [employer] [place], [place] [id number] * (ABNORMAL) POCT glucose (06/16/2022 7:52 AM CDT) Glucose, POC 408(H) 70 - 199 mg/dL [facility] Blood 06/16/2022 7:52 AM CDT 06/16/2022 7:52 AM CDT Catherine Adams MD LAB POCT ORDERABLES - DEVIC E Final Result Performing Organization Address City/[facility] Co de Phone Number [facility] Department [place] [address] * (ABNORMAL) POCT glucose (06/16/2022 4:52 AM CDT) [facility] Glucose, POC 425(H) 70 - 199 mg/dL [facility] Blood 06/16/2022 4:52 AM CDT 06/16/2022 4:52 AM CDT Catherine Adams MD LAB POCT ORDERABLES - DEVIC E Final Result Performing Organization Address [facility] Phone Number [facility] Department [place] [address] * XR Chest 1 View (06/16/2022 4:43 AM CDT) Anatomical Region Laterality Modality Body, Chest N/A Computed Radiogr aphy 06/16/2022 9:29 AM CDT Impressions 06/16/2022 11:17 AM CDT Comparison is made to 06/15/2022. Endotracheal tube tip is difficult to see but likely terminates approximately 6.4 cm above the boni. Gastric tube terminates below left diaphragm and out of the [id number]. There are small lung volumes. Airspace opacity [...] below left diaphragm and out of the [id number]. There are small lung volumes. Airspace opacity [...] Glucose, POC 239(H) 70 - 199 mg/dL [facility] Blood 06/16/2022 12:0 1 AM CDT 06/16/2022 12:01 AM CDT us Catherine Adams MD LAB POCT ORDERABLES - DEVIC E Final Result [facility] [place] [address] * (ABNORMAL) aPTT (06/16/2022 12:01 AM CDT) aPTT 53(H) 27 - 37 sec [facility] Comment: Interpretive Data Therapeutic heparin range: 60.0 - 94.0 seconds. Based on correlation with therapeutic heparin activity range of 0.3-0.7 Units/mL. Current interpretive data was last revised on 2020. Blood 06/16/2022 12:0 1 AM CDT 06/16/2022 12:14 AM CDT Narrative [facility] - 06/16/2022 12:36 AM CDT Draw STAT [...] BLOOD ORDERABLES Final Result Performing Organization Address City/State/[facility] Co de Phone Number [facility] [place] [address] * (ABNORMAL) CBC without differential (06/16/2022 12:01 AM CDT) WBC 11.1(H) 3.8 - 9.9 K/cumm [facility] Hgb 7.4(L) 13.0 - 17.5 g/dL [facility] Hct 22.6(L) 38.9 - 50.3 % [facility] Plt 215 150 - 400 K/cumm [facility] MPV 10.3 9.1 - 12.3 fL [facility] RBC 2.38(L) 4.30 - 5.80 M/cumm [facility] MCV 95.0 81.3 - 96.4 fL [facility] MCH 31.1 27.1 - 33.3 pg [facility] MCHC 32.7 32.3 - 35.7 g/dL [facility] RDW CV 14.4 11.1 - 14.9 % [facility] RDW SD 46.4 35.7 - 48.1 fL [facility] NRBC abs 0.05(H) 0.00 - 0.01 K/cumm [facility] Blood 06/16/2022 12:0 1 AM CDT 06/16/2022 12:22 AM CDT Narrative [facility] - 06/16/2022 12:29 AM CDT While on heparin infusion Catherine Adams MD LAB BLOOD ORDERABLES Final Result Performing Organization Address [facility]/ZIP Co de Phone Number [facility] [place] [address] * (ABNORMAL) eGFR (06/15/2022 8:51 PM CDT) eGFR 17(L) 90 - 130 mL/min/1. 73 m2 [facility] Comment: Interpretive Data Reference Interval Normal ?>/= [...] 06/15/2022 9:34 PM CDT us Marcelina Lo NP LAB BLOOD ORDERABLES Final Re sult [facility] Department [place] [address] * (ABNORMAL) Differential, auto (06/15/2022 8:51 PM CDT) Neutrophil abs 8.6(H) 1.7 - 6.5 K/cumm [facility] Imm gran abs 0.8(H) 0.0 - 0.1 K/cumm [facility] Lymphocyte abs 1.4 0.8 - 3.3 K/cumm [facility] Monocyte abs 1.7(H) 0.2 - 0.8 K/cumm [facility] Eosinophil abs 0.2 0.0 - 0.5 K/cumm [facility] Basophil abs 0.0 0.0 - 0.1 K/cumm [facility] Neutrophil pct 67.7 % [facility] Comment: Interpretive Data Percent cell count reference ranges are not reported, since discordance with absolute values may lead to misinterpretation of CBC data. Current Interpretive Data was last revised on 2017. Imm gran pct 6.1 % [facility] Comment: Interpretive Data Percent cell count reference ranges are not reported, since discordance with absolute values may lead to misinterpretation of CBC data. Current Interpretive Data was last revised on 2017. Lymphocyte pct 11.2 % [facility] Comment: Interpretive Data Percent cell count reference ranges are not reported, since discordance with absolute values may lead to misinterpretation of CBC data. Current Interpretive Data was last revised on 2017. Monocyte pct 13.3 % [facility] Comment: Interpretive Data Percent cell count reference ranges are not reported, since discordance with absolute values may lead to misinterpretation of CBC data. Current Interpretive Data was last revised on 2017. Eosinophil pct 1.5 % [facility] Comment: Interpretive Data Percent cell count reference ranges are not reported, since discordance with absolute values may lead to misinterpretation of CBC data. Current Interpretive Data was last revised on 2017. Basophil pct 0.2 % [facility] Comment: Interpretive Data Percent cell count reference ranges are not reported, since discordance with absolute values may lead to misinterpretation of CBC data. Current Interpretive Data was last revised on 2017. Blood 06/15/2022 8:51 PM CDT 06/15/2022 9:34 PM CDT us Marcelina Lo NP LAB BLOOD ORDERABLES Final Re sult Performing Organization Address City/[facility]/ZIP Co de Phone Number [facility] [place] [address] * (ABNORMAL) Triglycerides (06/15/2022 8:51 PM CDT) Triglycerides 227(H) <=149 mg/dL [facility] Comment: Interpretive Data Ages < [...] PM CDT 06/15/2022 9:33 PM CDT Narrative [facility] - 06/15/2022 10:00 PM CDT While on propofol infusion. us Catherine Adams MD LAB BLOOD ORDERABLES Final Result Performing Organization Address [facility]/ZIP Co de Phone Number [facility] [place] [address] * (ABNORMAL) Phosphorus (06/15/2022 8:51 PM CDT) Phosphorus, pl 5.0(H) 2.3 - 4.5 mg/dL [facility] Blood 06/15/2022 8:51 PM CDT 06/15/2022 9:33 PM CDT Marcelina Lo [facility] LAB BLOOD ORDERABLES Final Re sult Performing Organization Address [facility] Co de Phone Number [facility] [place] [address] * Beta-hydroxybutyrate (06/15/2022 8:51 PM CDT) [facility] Beta-Hydroxybut yrate 0.2 0.0 - 0.5 mmol/L [facility] Blood 06/15/2022 8:51 PM CDT 06/15/2022 9:26 PM CDT Marcelina Lo [facility]NA[facility] LAB BLOOD ORDERABLES Edited R esult - Final Performing Organization Address [facility] Co de Phone Number [facility] [place] [address] * Lipase (06/15/2022 8:51 PM CDT) Pathologist [facility] Lipase 27 10 - 99 Units/L [facility] Blood 06/15/2022 8:51 PM CDT 06/15/2022 9:33 PM CDT Marcelina Lo [facility]NA[facility] LAB BLOOD ORDERABLES Final Re sult Performing Organization Address [facility] Co de Phone Number [place] [address] * (ABNORMAL) Magnesium (06/15/2022 8:51 PM CDT) Magnesium 3.2(H) 1.4 - 2.5 mg/dL [facility] Blood 06/15/2022 8:51 PM CDT 06/15/2022 9:34 PM CDT us Marcelina Lo [facility] LAB BLOOD ORDERABLES Final Re sult [facility] Department [place] [address] * (ABNORMAL) Comprehensive metabolic panel (06/15/2022 8:51 PM CDT) Sodium 137 135 - 145 mmol/L [facility] Potassium, pl 4.6 3.3 - 4.9 mmol/L [facility] Chloride 101 97 - 110 mmol/L [facility] CO2 26 22 - 32 mmol/L [facility] Anion gap 10 2 - 15 mmol/L [facility] BUN 29(H) 8 - 25 mg/dL [facility] Creatinine 3.93(H) 0.80 - 1.30 mg/dL [facility] Glucose 179 70 - 199 mg/dL [facility] Comment: Interpretive Data Fasting glucose [...] 2017. Calcium 9.5 8.5 - 10.3 mg/dL [facility] Bilirubin, total 0.5 0.1 - 1.2 mg/dL [facility] Protein, pl 6.5 6.5 - 8.5 g/dL [facility] Albumin 3.0(L) 3.5 - 5.0 g/dL [facility] Alk phos 235(H) 40 - 130 Units/L [facility] ALT 36 7 - 55 Units/L [facility] AST 50 10 - 50 Units/L [facility] Blood 06/15/2022 8:51 PM CDT 06/15/2022 9:34 PM CDT us Marcelina Lo [facility] LAB BLOOD ORDERABLES Final Re sult Performing Organization Address [facility] de Phone Number [facility] Department [place] [address] * (ABNORMAL) CBC with auto differential (06/15/2022 8:51 PM CDT) [facility] WBC 12.7(H) 3.8 - 9.9 K/cumm [facility] Hgb 7.2(L) 13.0 - 17.5 g/dL [facility] Hct 21.9(L) 38.9 - 50.3 % [facility] Plt 204 150 - 400 K/cumm [facility] MPV 10.4 9.1 - 12.3 fL [facility] RBC 2.30(L) 4.30 - 5.80 M/cumm [facility] MCV 95.2 81.3 - 96.4 fL [facility] MCH 31.3 27.1 - 33.3 pg [facility] MCHC 32.9 32.3 - 35.7 g/dL [facility] RDW CV 14.6 11.1 - 14.9 % [facility] RDW SD 47.4 35.7 - 48.1 fL [facility] NRBC abs 0.05(H) 0.00 - 0.01 K/cumm [facility] Blood 06/15/2022 8:51 PM CDT 06/15/2022 9:34 PM CDT us Marcelina Lo [facility] LAB BLOOD ORDERABLES Final Re sult Performing Organization Address [facility] [facility] Co de Phone Number [facility] [place] [address] * POCT glucose (06/15/2022 8:49 PM CDT) Glucose, POC 183 70 - 199 mg/dL [facility] Blood 06/15/2022 8:49 PM CDT 06/15/2022 8:49 PM CDT Catherine Adams MD LAB POCT ORDERABLES - DEVIC E Final Result Performing Organization Address [facility] Co de Phone Number [facility] Department [place] [address] * C. difficile testing Stool (06/15/2022 6:15 PM CDT) Pathologist [facility] C. diff result Negative, free toxin Negative , free toxin [facility] C. diff interp Negative for toxigenic Clostridioides (Clostridium) difficile. Analysis was performed using a glutatmate dehydrogenase antigen detection assay combined with a C. difficile toxin detection assay. [facility] Stool 06/15/2022 6:15 PM CDT 06/15/2022 8:14 PM CDT Narrative [facility] - 06/15/2022 11:02 PM CDT Testing for C. difficile is not recommended within 4 days of a negative result, 10 days of a positive, or 24 hours after laxative administration. If this order is clinically indicated, contact the lab and enter the passcode to complete this order.->[id number] Catherine Adams MD LAB MICROBIOLOGY - GENERAL ORDERABLES Final Result Performing Organization Address City/[facility] Co de Phone Number [facility] Department [place] [address] * VRE culture, surveillance Stool (06/15/2022 6:14 PM CDT) Pathologist [facility] Report Final Report: Negative [facility] Stool 06/15/2022 6:14 PM CDT 06/15/2022 11:04 PM CDT Narrative [facility] - 06/18/2022 1:29 PM CDT Testing performed by [facility] Microbiology Laboratory ([phone]). Catherine Adams MD LAB MICROBIOLOGY - GENERAL ORDERABLES Final Result Performing Organization Address [facility] Co de Phone Number [facility] Department [place] [address] * (ABNORMAL) POCT glucose (06/15/2022 3:21 PM CDT) Glucose, POC 260(H) 70 - 199 mg/dL [facility] Blood 06/15/2022 3:21 PM CDT 06/15/2022 3:21 PM CDT Catherine Adams MD LAB POCT ORDERABLES - DEVIC E Final Result Performing Organization Address [facility] [place] [address] * (ABNORMAL) Blood gas, arterial (06/15/2022 11:21 AM CDT) pH, Art 7.38 7.35 - 7.45 [facility] PCO2, Arterial 39 35 - 45 mmHg [facility] PO2, Arterial 100 83 - 108 mmHg [facility] HCO3 Art (Calculated) 23 20 - 30 mmol/L [facility] BE, art -2 mmol/L [facility] Comment: Interpretive Data No Reference Range Established Current Interpretive Data was last revised on 2017 O2 Sat Art (Measured) 98(H) 90 - 95 % [facility] Blood 06/15/2022 11:2 1 AM CDT 06/15/2022 11:32 AM CDT Marcelina Lo NP LAB BLOOD ORDERABLES Final Re sult Performing Organization Address [facility] [place] [address] * (ABNORMAL) POCT glucose (06/15/2022 11:20 AM CDT) [facility] Glucose, POC 332(H) 70 - 199 mg/dL [facility] Glucose comment 1 Glu2: RN/MD Notified [facility] Blood 06/15/2022 11:2 0 AM CDT 06/15/2022 11:20 AM CDT Catherine Adams MD LAB POCT ORDERABLES - DEVIC E Final Result [facility] Department [place] [address] * Respiratory pathogen panel Nasopharyngeal (06/15/2022 11:05 AM CDT) [facility] Influenza A RNA Not Detected Not Detected [facility] Influenza B RNA Not Detected Not Detected [facility] RSV RNA Not Detected Not Detected [facility] COVID-19 RNA Not Detected Not Detected [facility] Coronavirus 229E RNA Not Detected Not Detected [facility] Coronavirus HKU1 RNA Not Detected Not Detected [facility] Coronavirus NL63 RNA Not Detected Not Detected [facility] Coronavirus OC43 RNA Not Detected Not Detected [facility] Adenovirus DNA Not Detected Not Detected [facility] Metapneumovirus RNA Not Detected Not Detected [facility] Rhinovirus/Enterov irus RNA Not Detected Not Detected [facility] Parainfluenza 1 RNA Not Detected Not Detected [facility] Parainfluenza 2 RNA Not Detected Not Detected [facility] Parainfluenza 3 RNA Not Detected Not Detected [facility] Parainfluenza 4 RNA Not Detected Not Detected [facility] B. pertussis DNA Not Detected Not Detected [facility] B. parapertussis DNA Not Detected Not Detected [facility] C. pneumoniae DNA Not Detected Not Detected [facility] M. pneumoniae DNA Not Detected Not Detected [facility] Nasopharyngeal 06/15/2022 11 :05 AM CDT 06/15/2022 11:19 AM CDT Narrative [facility] - 06/15/2022 1:02 PM CDT Is the Patient experiencing symptoms consistent with COVID?->Unknown Reason for testing?->Symptomatic Surveillance testing for transplant patient?->No ??Interpretive Data The [employer] FilmArray Respiratory Panel (RP2.1) assay is a [...] assay has FDA clearance for testing of SECURITY OPERATIONS CENTER ANALYST swabs. ??The performance of additional specimen types has been assessed by the performing laboratory. ??The performance characteristics of this assay have been determined by [facility] Molecular Infectious Disease Laboratory. Current interpretive data was last revised on 22. Catherine Adams MD LAB MICROBIOLOGY - GENERAL ORDERABLES Final Result [facility] Department of Laboratories [place], [place] [id number] * US Vein Duplex Lower Extremity Bilateral Complete (06/15/2022 11:00 AM CDT) Anatomical Region Laterality Modality Vascular Bilateral Ultrasound 06/15/2022 10:2 9 AM CDT Narrative 06/15/2022 12:34 PM CDT [facility] - Department of Vascular Surgery, Vascular Laboratory [address] [place] [id number] Lower Extremity Venous Ultrasound Report Patient Name: ADELIA GARVIN C : 1970 (51y 9m) Study Date: 06/15/2022 10:29:44 AM Gender: M Tech: CD Location: [id number] Ref.Provider: CATHERINE ADAMS Quality: Adequate Order Provider: CATHERINE ADAMS Procedures: Vascular Report: Venous Duplex imaging was performed bilaterally in the lower extremities. The common femoral, femoral, popliteal, posterior tibial, peroneal veins were evaluated for patency, spontaneity and phasicity with Doppler, compression and augmentation maneuvers. Great saphenous vein proximal at the junction was evaluated with compression maneuvers. Indications: Localized edema. Findings: Performing Station Installer And Repairer: aFye Zheng RVT, RDMS. Bilateral: Venous Doppler signals [...] Signed By: Jase Mendez MD [facility] 2022-06-15 12:34:44 CDT CC: CC: Procedure Note Jase Mendez MD - 06/15/2022 [facility] - Department of Vascular Surgery,Vascular Laboratory [address] [place] [address] Lower Extremity Venous Ultrasound Report Patient Name: ADELIA GARVIN CPatient ID: [id number] : 1970 (51y 9m)Study Date: 06/15/2022 10:29:44 AM Gender: MAccession #: [id number] Tech: CDLocation: [id number] Ref.Provider: Leandro ADAMSality: Adequate Order Provider: Ramez ADAMS #: [id number] Procedures: Vascular Report: Venous Duplex imaging was performed bilaterally in the lower extremities.The common femoral, femoral, popliteal, posterior tibial, peroneal veins wereevaluated for patency, spontaneity and phasicity with Doppler, compression and augmentationmaneuvers. Great saphenous vein proximal at the junction was evaluated with compressionmaneuvers. Indications: Localized edema. Findings: Performing Station Installer And Repairer: Faye Zheng RVT, RDMS. Bilateral: Venous Doppler [...] testing performed. Electronically Signed By: Jase Mendez MD, FACS 2022-06-15 12:34:44 CDT CC: CC: Catherine Adams MD IMG US PROCEDURES Final Res ult * (ABNORMAL) POCT glucose (06/15/2022 8:21 AM CDT) Glucose, POC 260(H) 70 - 199 mg/dL [facility] Blood 06/15/2022 8:21 AM CDT 06/15/2022 8:21 AM CDT Result [facility] Catherine Adams MD LAB POCT ORDERABLES - DEVIC E Final Result Performing Organization Address City/[facility] Co de Phone Number [facility] [place] [address] * Oxyhemoglobin, central venous (06/15/2022 8:11 AM CDT) Oxyhemoglobin, CV 66.6 % [facility] Comment: Interpretive Data No reference range established. Current interpretive data was last revised 2019. Blood 06/15/2022 8:11 AM CDT 06/15/2022 8:25 AM CDT Result [facility] Catherine Adams MD LAB BLOOD ORDERABLES Final Result Performing Organization Address City/[facility]/ZIP Co de Phone Number [facility] [place] [address] * (ABNORMAL) aPTT (06/15/2022 8:11 AM CDT) aPTT 60(H) 27 - 37 sec [facility] Comment: Interpretive Data Therapeutic heparin range: 60.0 - 94.0 seconds. Based on correlation with therapeutic heparin activity range of 0.3-0.7 Units/mL. Current interpretive data was last revised on 2020. Blood 06/15/2022 8:11 AM CDT 06/15/2022 8:50 AM CDT Narrative [facility] - 06/15/2022 9:28 AM CDT Draw STAT [...] BLOOD ORDERABLES Final Result Performing Organization Address City/State/[facility] Co de Phone Number [facility] [place] [address] * (ABNORMAL) eGFR (06/15/2022 8:06 AM CDT) eGFR 27(L) 90 - 130 mL/min/1. 73 m2 [facility] Comment: Interpretive Data Reference Interval [...] NP LAB BLOOD ORDERABLES Final Re sult [facility] [place] [address] * (ABNORMAL) Differential, auto (06/15/2022 8:06 AM CDT) Neutrophil abs 9.0(H) 1.7 - 6.5 K/cumm [facility] Imm gran abs 1.0(H) 0.0 - 0.1 K/cumm [facility] Lymphocyte abs 1.6 0.8 - 3.3 K/cumm [facility] Monocyte abs 1.5(H) 0.2 - 0.8 K/cumm [facility] Eosinophil abs 0.2 0.0 - 0.5 K/cumm [facility] Basophil abs 0.1 0.0 - 0.1 K/cumm [facility] Neutrophil pct 67.6 % [facility] Comment: Interpretive Data Percent cell count reference ranges are not reported, since discordance with absolute values may lead to misinterpretation of CBC data. Current Interpretive Data was last revised on 2017. Imm gran pct 7.4 % [facility] Comment: Interpretive Data Percent cell count reference ranges are not reported, since discordance with absolute values may lead to misinterpretation of CBC data. Current Interpretive Data was last revised on 2017. Lymphocyte pct 11.8 % [facility] Comment: Interpretive Data Percent cell count reference ranges are not reported, since discordance with absolute values may lead to misinterpretation of CBC data. Current Interpretive Data was last revised on 2017. Monocyte pct 11.2 % [facility] Comment: Interpretive Data Percent cell count reference ranges are not reported, since discordance with absolute values may lead to misinterpretation of CBC data. Current Interpretive Data was last revised on 2017. Eosinophil pct 1.5 % [facility] Comment: Interpretive Data Percent cell count reference ranges are not reported, since discordance with absolute values may lead to misinterpretation of CBC data. Current Interpretive Data was last revised on 2017. Basophil pct 0.5 % [facility] Comment: Interpretive Data Percent cell count reference ranges are not reported, since discordance with absolute values may lead to misinterpretation of CBC data. Current Interpretive Data was last revised on 2017. Blood 06/15/2022 8:06 AM CDT 06/15/2022 8:50 AM CDT us Marcelina Lo SECURITY OPERATIONS CENTER ANALYST LAB BLOOD ORDERABLES Final Re sult [facility] Department [place] [address] * Blood culture Blood Arm, right (06/15/2022 8:06 AM CDT) Report Final Report: No growth [facility] Blood (Arm, right) 06/15/2022 8:06 AM CDT [...] organism identification may be performed using the [employer] Gram-Positive Blood Culture Assay. This assay detects microbial DNA in positive blood culture broth via hybridization of target DNA to capture oligonucleotides on a microarray. This assay has been cleared by the [place] Food and Drug Administration and its performance characteristics have been verified by the [facility] Microbiology Laboratory. 5. ?For questions about this culture, contact the Microbiology Laboratory at [phone]. Interpretive data was last revised on 2020. Catherine Adams MD LAB MICROBIOLOGY - GENERAL ORDERABLES Final Result [facility] [place] [address] * Blood culture Blood Antecubital, right (06/15/2022 [...] organism identification may be performed using the [employer] Gram-Positive Blood Culture Assay. This assay detects microbial DNA in positive blood culture broth via hybridization of target DNA to capture oligonucleotides on a microarray. This assay has been cleared by the [place] Food and Drug Administration and its performance characteristics have been verified by the [facility] Microbiology Laboratory. 5. ?For questions about this culture, contact the Microbiology Laboratory at [phone]. Interpretive data was last revised on 2020. Catherine Adams MD LAB MICROBIOLOGY - GENERAL ORDERABLES Final Result Performing Organization Address [facility]/ZIP Co de Phone Number [facility] Department [place] [address] * (ABNORMAL) Magnesium (06/15/2022 8:06 AM CDT) [facility] Magnesium 2.8(H) 1.4 - 2.5 mg/dL [facility] Blood 06/15/2022 8:06 AM CDT 06/15/2022 8:50 AM CDT Marcelina Lo NP LAB BLOOD ORDERABLES Final Re sult Performing Organization Address [facility] Co de Phone Number [facility] Department [place] [address] * (ABNORMAL) Comprehensive metabolic panel (06/15/2022 8:06 AM CDT) Pathologist [facility] Sodium 134(L) 135 - 145 mmol/L [facility] Potassium, pl 5.0(H) 3.3 - 4.9 mmol/L [facility] Chloride 99 97 - 110 mmol/L [facility] CO2 26 22 - 32 mmol/L [facility] Anion gap 9 2 - 15 mmol/L [facility] BUN 21 8 - 25 mg/dL [facility] Creatinine 2.73(H) 0.80 - 1.30 mg/dL [facility] Glucose 273(H) 70 - 199 mg/dL [facility] Comment: Interpretive Data Fasting glucose [...] 2017. Calcium 8.8 8.5 - 10.3 mg/dL [facility] Bilirubin, total 0.5 0.1 - 1.2 mg/dL [facility] Protein, pl 6.2(L) 6.5 - 8.5 g/dL [facility] Albumin 2.7(L) 3.5 - 5.0 g/dL [facility] Alk phos 256(H) 40 - 130 Units/L [facility] ALT 44 7 - 55 Units/L [facility] AST 61(H) 10 - 50 Units/L [facility] Blood 06/15/2022 8:06 AM CDT 06/15/2022 8:50 AM CDT us Marcelina Lo SECURITY OPERATIONS CENTER ANALYST LAB BLOOD ORDERABLES Final Re sult [facility] [place] [address] * (ABNORMAL) CBC with auto differential (06/15/2022 8:06 AM CDT) Pathologist [facility] WBC 13.2(H) 3.8 - 9.9 K/cumm [facility] Hgb 7.7(L) 13.0 - 17.5 g/dL [facility] Hct 24.1(L) 38.9 - 50.3 % [facility] Plt 228 150 - 400 K/cumm [facility] MPV 10.6 9.1 - 12.3 fL [facility] RBC 2.45(L) 4.30 - 5.80 M/cumm [facility] MCV 98.4(H) 81.3 - 96.4 fL [facility] MCH 31.4 27.1 - 33.3 pg [facility] MCHC 32.0(L) 32.3 - 35.7 g/dL [facility] RDW CV 14.5 11.1 - 14.9 % [facility] RDW SD 49.6(H) 35.7 - 48.1 fL [facility] NRBC abs 0.11(H) 0.00 - 0.01 K/cumm [facility] Blood 06/15/2022 8:06 AM CDT 06/15/2022 8:50 AM CDT us Marcelina Lo NP LAB BLOOD ORDERABLES Final Re sult [facility] [place] [address] * XR Chest 1 View (06/15/2022 5:21 AM CDT) Anatomical Region Laterality Modality Body, Chest N/A Computed Radiogr aphy 06/15/2022 8:52 AM CDT Impressions 06/15/2022 9:21 AM CDT Comparison is made to 06/14/2022. Endotracheal tube terminates near the thoracic inlet, approximately 7 cm above the boni. Recommend advancement. Gastric tube terminates below left hemidiaphragm out of the [id number]. A left internal jugular central venous catheter [...] terminates below left hemidiaphragm out of the [id number]. A left internal jugular central venous catheter [...] Glucose, POC 264(H) 70 - 199 mg/dL [facility] Blood 06/15/2022 3:37 AM CDT 06/15/2022 3:37 AM CDT Result [facility] Catherine Adams MD LAB POCT ORDERABLES - DEVIC E Final Result Performing Organization Address City/[facility]/ZIP Co de Phone Number [facility] [place] [address] * Lactate, whole blood (06/15/2022 3:37 AM CDT) [facility] Signature Lactate, bld 0.8 0.7 - 2.0 mmol/L [facility] Blood 06/15/2022 3:37 AM CDT 06/15/2022 3:46 AM CDT Marcelina Lo NP LAB BLOOD ORDERABLES Final Re sult Performing Organization Address City/[facility]/ZIP Co de Phone Number [facility] [place] [address] * (ABNORMAL) Blood gas, arterial (06/15/2022 3:37 AM CDT) Pathologist [facility] pH, Art 7.36 7.35 - 7.45 [facility] PCO2, Arterial 41 35 - 45 mmHg [facility] PO2, Arterial 64(L) 83 - 108 mmHg [facility] HCO3 Art (Calculated) 24 20 - 30 mmol/L [facility] BE, art -2 mmol/L [facility] Comment: Interpretive Data No Reference Range Established Current Interpretive Data was last revised on 2017 O2 Sat Art (Measured) 92 90 - 95 % [facility] Blood 06/15/2022 3:37 AM CDT 06/15/2022 3:46 AM CDT us Marcelina Lo SECUR[employer] OPERATIONS CENTER ANALYST LAB BLOOD ORDERABLES Final Re sult [facility] [place] [address] * Pneumonia PCR Tracheal aspirate (06/15/2022 1:53 AM CDT) [facility] C. pneumoniae DNA Not Detected Not Detected [facility] Legionella pneumophila DNA Not Detected Not Detected [facility] M. pneumoniae DNA Not Detected Not Detected [facility] Adenovirus DNA Not Detected Not Detected [facility] Coronavirus (229E, OC43, HKU1, NL63) RNA Not Detected Not Detected [facility] Metapneumovirus RNA Not Detected Not Detected [facility] Rhinovirus/Enterov irus RNA Not Detected Not Detected [facility] Influenza A RNA Not Detected Not Detected [facility] Influenza B RNA Not Detected Not Detected [facility] Parainfluenza virus (1-4) RNA Not Detected Not Detected [facility] RSV RNA Not Detected Not Detected [facility] Tracheal aspirate 06/15/2022 1:53 AM CDT 06/15/2022 4:22 AM CDT Narrative [facility] - 06/15/2022 5:52 AM CDT [...] of this assay have been determined by [facility] Clinical Laboratory. Current interpretive data was last revised on 2021. Catherine Adams MD LAB MICROBIOLOGY - GENERAL ORDERABLES Final Result [facility] [place] [address] * Pneumonia PCR with aerobic culture and Gram stain Tracheal aspirate (06/15/2022 1:53 AM CDT) Direct Specimen Exam Molecular Analysis: Rapid molecular analysis has NOT detected bacterial targets (for a list of targets evaluated, refer to the interpretive data for this specimen). Correlation of molecular analysis with culture results is recommended. [facility] Direct Specimen Exam Stain: Few polymorphonuclear leukocytes seen. Few squamous epithelial cells seen. Few mixed bacterial stone seen on Gram stain. [facility] Report Final Report: Insignificant growth based on current clinical standards. [facility] Tracheal aspirate 06/15/2022 1:53 AM CDT 06/15/2022 3:09 AM CDT Narrative [facility] - 06/17/2022 10:03 AM CDT When rapid molecular testing results are reported, testing completed using the [employer] Pneumonia Panel. ??This molecular assay detects: Acinetobacter [...] characteristics have been confirmed by the [facility] Laboratory. ??The performance of the FilmArray Pneumonia Panel has not been established for monitoring treatment of infection and bacterial nucleic acids may persist independent of organism viability. us Catherine Adams MD LAB MICROBIOLOGY - GENERAL ORDERABLES Final Result [facility] [place] [address] * (ABNORMAL) Blood gas, arterial (06/14/2022 11:53 PM CDT) pH, Art 7.36 7.35 - 7.45 [facility] PCO2, Arterial 43 35 - 45 mmHg [facility] PO2, Arterial 77(L) 83 - 108 mmHg [facility] HCO3 Art (Calculated) 25 20 - 30 mmol/L [facility] BE, art -1 mmol/L [facility] Comment: Interpretive Data No Reference Range Established Current Interpretive Data was last revised on 2017 O2 Sat Art (Measured) 94 90 - 95 % [facility] Blood 06/14/2022 11:5 3 PM CDT 06/14/2022 11:59 PM CDT us Marcelina Lo SECUR[employer] OPERATIONS C[facility] ANALYST LAB BLOOD ORDERABLES Final Re sult Performing Organization Address [facility]/ZIP Co de Phone Number [facility] [place] [address] * POCT glucose (06/14/2022 11:52 PM CDT) Pathologist [facility] Glucose, POC 176 70 - 199 mg/dL [facility] Blood 06/14/2022 11:5 2 PM CDT 06/14/2022 11:52 PM CDT Catherine Adams MD LAB POCT ORDERABLES - DEVIC E Final Result Performing Organization Address [facility] Co de Phone Number [facility] [place] [address] * (ABNORMAL) eGFR (06/14/2022 7:41 PM CDT) eGFR 35(L) 90 - 130 mL/min/1. 73 m2 [facility] Comment: Interpretive Data Reference Interval [...] Adams MD LAB BLOOD ORDERABLES Final Result [facility] [place] [address] * (ABNORMAL) Differential, auto (06/14/2022 7:41 PM CDT) Neutrophil abs 9.9(H) 1.7 - 6.5 K/cumm [facility] Imm gran abs 1.5(H) 0.0 - 0.1 K/cumm [facility] Lymphocyte abs 1.7 0.8 - 3.3 K/cumm [facility] Monocyte abs 1.6(H) 0.2 - 0.8 K/cumm [facility] Eosinophil abs 0.3 0.0 - 0.5 K/cumm [facility] Basophil abs 0.0 0.0 - 0.1 K/cumm [facility] Neutrophil pct 66.0 % [facility] Comment: Interpretive Data Percent cell count reference ranges are not reported, since discordance with absolute values may lead to misinterpretation of CBC data. Current Interpretive Data was last revised on 2017. Imm gran pct 9.6 % [facility] Comment: Interpretive Data Percent cell count reference ranges are not reported, since discordance with absolute values may lead to misinterpretation of CBC data. Current Interpretive Data was last revised on 2017. Lymphocyte pct 11.2 % [facility] Comment: Interpretive Data Percent cell count reference ranges are not reported, since discordance with absolute values may lead to misinterpretation of CBC data. Current Interpretive Data was last revised on 2017. Monocyte pct 10.8 % [facility] Comment: Interpretive Data Percent cell count reference ranges are not reported, since discordance with absolute values may lead to misinterpretation of CBC data. Current Interpretive Data was last revised on 2017. Eosinophil pct 2.1 % [facility] Comment: Interpretive Data Percent cell count reference ranges are not reported, since discordance with absolute values may lead to misinterpretation of CBC data. Current Interpretive Data was last revised on 2017. Basophil pct 0.3 % [facility] Comment: Interpretive Data Percent cell count reference ranges are not reported, since discordance with absolute values may lead to misinterpretation of CBC data. Current Interpretive Data was last revised on 2017. Blood 06/14/2022 7:4 1 PM CDT 06/14/2022 8:01 PM CDT Catherine Adams MD LAB BLOOD ORDERABLES Final Result [facility] Department [place] [address] * (ABNORMAL) Magnesium (06/14/2022 7:41 PM CDT) Magnesium 3.0(H) 1.4 - 2.5 mg/dL [facility] Blood 06/14/2022 7:41 PM CDT 06/14/2022 7:49 PM CDT us aCtherine Adams MD LAB BLOOD ORDERABLES Final Result [facility] [place] [address] * (ABNORMAL) Comprehensive metabolic panel (06/14/2022 7:41 PM CDT) Sodium 138 135 - 145 mmol/L [facility] Potassium, pl 4.7 3.3 - 4.9 mmol/L [facility] Chloride 102 97 - 110 mmol/L [facility] CO2 27 22 - 32 mmol/L [facility] Anion gap 9 2 - 15 mmol/L [facility] BUN 17 8 - 25 mg/dL [facility] Creatinine 2.22(H) 0.80 - 1.30 mg/dL [facility] Glucose 182 70 - 199 mg/dL [facility] Comment: Interpretive Data Fasting glucose [...] 2017. Calcium 9.1 8.5 - 10.3 mg/dL [facility] Bilirubin, total 0.6 0.1 - 1.2 mg/dL [facility] Protein, pl 6.5 6.5 - 8.5 g/dL [facility] Albumin 3.1(L) 3.5 - 5.0 g/dL [facility] Alk phos 264(H) 40 - 130 Units/L [facility] ALT 45 7 - 55 Units/L [facility] AST 73(H) 10 - 50 Units/L [facility] Blood 06/14/2022 7:41 PM CDT 06/14/2022 7:49 PM CDT Catherine Adams MD LAB BLOOD ORDERABLES Final Result [facility] Department [place] [address] * (ABNORMAL) Triglycerides (06/14/2022 7:41 PM CDT) Triglycerides 482(H) <=149 mg/dL [facility] Comment: Interpretive Data Ages < [...] PM CDT 06/14/2022 7:49 PM CDT Narrative [facility] - 06/14/2022 8:29 PM CDT While on propofol infusion. us Catherine Adams MD LAB BLOOD ORDERABLES Final Result [facility] Department [place] [address] * Phosphorus (06/14/2022 7:41 PM CDT) Phosphorus, pl 3.1 2.3 - 4.5 mg/dL [facility] Blood 06/14/2022 7:41 PM CDT 06/14/2022 7:49 PM CDT Marcelina Lo [employer] [facility] [employer] LAB BLOOD ORDERABLES Final Re sult Performing Organization Address [facility] de Phone Number [facility] [place] [address] * (ABNORMAL) Beta-hydroxybutyrate (06/14/2022 7:41 PM CDT) Pathologist [facility] Beta-Hydroxybut yrate 0.7(H) 0.0 - 0.5 mmol/L [facility] Blood 06/14/2022 7:41 PM CDT 06/14/2022 7:47 PM CDT Marcelina Lo [employer] [facility] [facility] [employer] LAB BLOOD ORDERABLES Edited R esult - Final Performing Organization Address [facility] de Phone Number [facility] Department [place] [address] * Lipase (06/14/2022 7:41 PM CDT) Pathologist [facility] Lipase 25 10 - 99 Units/L [facility] Blood 06/14/2022 7:41 PM CDT 06/14/2022 7:49 PM CDT Marcelina Lo [employer] [facility] [employer] LAB BLOOD ORDERABLES Final Re sult Performing Organization Address [facility] de Phone Number [facility] [place] [address] * (ABNORMAL) CBC with auto differential (06/14/2022 7:41 PM CDT) [facility] WBC 15.0(H) 3.8 - 9.9 K/cumm [facility] Hgb 8.3(L) 13.0 - 17.5 g/dL [facility] Hct 24.9(L) 38.9 - 50.3 % [facility] Plt 218 150 - 400 K/cumm [facility] MPV 10.4 9.1 - 12.3 fL [facility] RBC 2.62(L) 4.30 - 5.80 M/cumm [facility] MCV 95.0 81.3 - 96.4 fL [facility] MCH 31.7 27.1 - 33.3 pg [facility] MCHC 33.3 32.3 - 35.7 g/dL [facility] RDW CV 14.1 11.1 - 14.9 % [facility] RDW SD 47.3 35.7 - 48.1 fL [facility] NRBC abs 0.08(H) 0.00 - 0.01 K/cumm [facility] Blood 06/14/2022 7:41 PM CDT 06/14/2022 8:01 PM CDT us Marcelina Lo [employer] [facility] [employer] LAB BLOOD ORDERABLES Final Re sult Performing Organization Address City/[facility]/ZIP Co de Phone Number [facility] [place] [address] * POCT glucose (06/14/2022 7:40 PM CDT) Glucose, POC 190 70 - 199 mg/dL [facility] Blood 06/14/2022 7:40 PM CDT 06/14/2022 7:40 PM CDT Catherine Adams MD LAB POCT ORDERABLES - DEVIC E Final Result [facility] [place] [address] * (ABNORMAL) Blood gas, arterial (06/14/2022 4:19 PM CDT) Pathologist [facility] pH, Art 7.38 7.35 - 7.45 [facility] PCO2, Arterial 41 35 - 45 mmHg [facility] PO2, Arterial 76(L) 83 - 108 mmHg [facility] HCO3 Art (Calculated) 25 20 - 30 mmol/L [facility] BE, art -1 mmol/L [facility] Comment: Interpretive Data No Reference Range Established Current Interpretive Data was last revised on 2017 O2 Sat Art (Measured) 94 90 - 95 % [facility] Blood 06/14/2022 4:19 PM CDT 06/14/2022 4:38 PM CDT us Marcelina Lo [employer] [facility] [employer] LAB BLOOD ORDERABLES Final Re sult Performing Organization Address [facility] Co de Phone Number [facility] [place] [address] * (ABNORMAL) POCT glucose (06/14/2022 4:16 PM CDT) Glucose, POC 229(H) 70 - 199 mg/dL [facility] Glucose comment 1 Glu2: RN/MD Notified [facility] Blood 06/14/2022 4:16 PM CDT 06/14/2022 4:16 PM CDT us Catherine Adams MD LAB POCT ORDERABLES - DEVIC E Final Result Performing Organization Address [facility] Co de Phone Number [facility] Department [place] [address] * (ABNORMAL) POCT glucose (06/14/2022 11:21 AM CDT) Glucose, POC 202(H) 70 - 199 mg/dL [facility] Blood 06/14/2022 11:2 1 AM CDT 06/14/2022 11:21 AM CDT us Catherine Adams MD LAB POCT ORDERABLES - DEVIC E Final Result Performing Organization Address City/[facility]/ZIP Co de Phone Number [facility] Department [place] [address] * XR Chest 1 View (06/14/2022 10:56 [...] SINGLE VIEW ANTEROPOSTERIOR CHEST Procedure Note Saurav Emreson MD - 06/14/2022 EXAMINATION: SINGLE VIEW ANTEROPOSTERIOR [...] Glucose, POC 172 70 - 199 mg/dL [facility] Blood 06/14/2022 8:18 AM CDT 06/14/2022 8:18 AM CDT us Catherine Adams MD LAB POCT ORDERABLES - DEVIC E Final Result Performing Organization Address [facility] Co de Phone Number [facility] Department [place] [address] * (ABNORMAL) eGFR (06/14/2022 8:16 AM CDT) eGFR 35(L) 90 - 130 mL/min/1. 73 m2 [facility] Comment: Interpretive Data Reference Interval [...] BLOOD ORDERABLES Final Result Performing Organization Address City/[facility] Co de Phone Number [facility] Department [place] [address] * (ABNORMAL) Differential, auto (06/14/2022 8:16 AM CDT) Neutrophil abs 10.1(H) 1.7 - 6.5 K/cumm [facility] Imm gran abs 1.8(H) 0.0 - 0.1 K/cumm [facility] Lymphocyte abs 2.0 0.8 - 3.3 K/cumm [facility] Monocyte abs 1.5(H) 0.2 - 0.8 K/cumm [facility] Eosinophil abs 0.3 0.0 - 0.5 K/cumm [facility] Basophil abs 0.1 0.0 - 0.1 K/cumm [facility] Neutrophil pct 64.1 % [facility] Comment: Interpretive Data Percent cell count reference ranges are not reported, since discordance with absolute values may lead to misinterpretation of CBC data. Current Interpretive Data was last revised on 2017. Imm gran pct 11.4 % [facility] Comment: Interpretive Data Percent cell count reference ranges are not reported, since discordance with absolute values may lead to misinterpretation of CBC data. Current Interpretive Data was last revised on 2017. Lymphocyte pct 12.7 % [facility] Comment: Interpretive Data Percent cell count reference ranges are not reported, since discordance with absolute values may lead to misinterpretation of CBC data. Current Interpretive Data was last revised on 2017. Monocyte pct 9.5 % [facility] Comment: Interpretive Data Percent cell count reference ranges are not reported, since discordance with absolute values may lead to misinterpretation of CBC data. Current Interpretive Data was last revised on 2017. Eosinophil pct 1.9 % [facility] Comment: Interpretive Data Percent cell count reference ranges are not reported, since discordance with absolute values may lead to misinterpretation of CBC data. Current Interpretive Data was last revised on 2017. Basophil pct 0.4 % [facility] Comment: Interpretive Data Percent cell count reference ranges are not reported, since discordance with absolute values may lead to misinterpretation of CBC data. Current Interpretive Data was last revised on 2017. Blood 06/14/2022 8:16 AM CDT 06/14/2022 8:29 AM CDT Catherine Adams MD LAB BLOOD ORDERABLES Final Result Performing Organization Address [facility] de Phone Number [facility] [place] [address] * (ABNORMAL) aPTT (06/14/2022 8:16 AM CDT) aPTT 67(H) 27 - 37 sec [facility] Comment: Interpretive Data Therapeutic heparin range: 60.0 - 94.0 seconds. Based on correlation with therapeutic heparin activity range of 0.3-0.7 Units/mL. Current interpretive data was last revised on 2020. Blood 06/14/2022 8:16 AM CDT 06/14/2022 8:30 AM CDT Narrative [facility] - 06/14/2022 8:54 AM CDT [...] BLOOD ORDERABLES Final Result Performing Organization Address [facility] de Phone Number [facility] [place] [address] * (ABNORMAL) Blood gas, arterial (06/14/2022 8:16 AM CDT) pH, Art 7.41 7.35 - 7.45 [facility] PCO2, Arterial 38 35 - 45 mmHg [facility] PO2, Arterial 89 83 - 108 mmHg [facility] HCO3 Art (Calculated) 25 20 - 30 mmol/L [facility] BE, art 0 mmol/L [facility] Comment: Interpretive Data No Reference Range Established Current Interpretive Data was last revised on 2017 O2 Sat Art (Measured) 97(H) 90 - 95 % [facility] Blood 06/14/2022 8:16 AM CDT 06/14/2022 8:27 AM CDT Marcelina Lo [employer] [facility] [employer] LAB BLOOD ORDERABLES Final Re sult Performing Organization Address [facility] Co de Phone Number [facility] [place] [address] * (ABNORMAL) Magnesium (06/14/2022 8:16 AM CDT) [facility] Magnesium 2.9(H) 1.4 - 2.5 mg/dL [facility] Blood 06/14/2022 8:16 AM CDT 06/14/2022 8:29 AM CDT Marcelina Lo [employer] [facility] [employer] LAB BLOOD ORDERABLES Final Re sult Performing Organization Address [facility] de Phone Number [facility] [place] [address] * (ABNORMAL) Comprehensive metabolic panel (06/14/2022 8:16 AM CDT) Pathologist [facility] Sodium 134(L) 135 - 145 mmol/L [facility] Potassium, pl 4.7 3.3 - 4.9 mmol/L [facility] Comment:Hemolyzed; Potassium value may be falsely elevated by as much as 0.3-0.5 mmol/L. Suggest redraw and reanalysis. Chloride 100 97 - 110 mmol/L [facility] CO2 25 22 - 32 mmol/L [facility] Anion gap 9 2 - 15 mmol/L [facility] BUN 16 8 - 25 mg/dL [facility] Creatinine 2.19(H) 0.80 - 1.30 mg/dL [facility] Glucose 171 70 - 199 mg/dL [facility] Comment: Interpretive Data Fasting glucose [...] 2017. Calcium 9.5 8.5 - 10.3 mg/dL [facility] Bilirubin, total 0.6 0.1 - 1.2 mg/dL [facility] Protein, pl 6.6 6.5 - 8.5 g/dL [facility] Albumin 3.1(L) 3.5 - 5.0 g/dL [facility] Alk phos 276(H) 40 - 130 Units/L [facility] ALT 48 7 - 55 Units/L [facility] AST 81(H) 10 - 50 Units/L [facility] Comment:Hemolyzed; result ma y be falsely elevated Blood 06/14/2022 8:16 AM CDT 06/14/2022 8:29 AM CDT us Marcelina Lo [employer] [facility] [facility] [employer] LAB BLOOD ORDERABLES Final Re sult [facility] [place] [address] * (ABNORMAL) CBC with auto differential (06/14/2022 8:16 AM CDT) WBC 15.7(H) 3.8 - 9.9 K/cumm [facility] Hgb 8.3(L) 13.0 - 17.5 g/dL [facility] Hct 25.5(L) 38.9 - 50.3 % [facility] Plt 217 150 - 400 K/cumm [facility] MPV 10.6 9.1 - 12.3 fL [facility] RBC 2.63(L) 4.30 - 5.80 M/cumm [facility] MCV 97.0(H) 81.3 - 96.4 fL [facility] MCH 31.6 27.1 - 33.3 pg [facility] MCHC 32.5 32.3 - 35.7 g/dL [facility] RDW CV 13.8 11.1 - 14.9 % [facility] RDW SD 48.2(H) 35.7 - 48.1 fL [facility] NRBC abs 0.07(H) 0.00 - 0.01 K/cumm [facility] Blood 06/14/2022 8:16 AM CDT 06/14/2022 8:29 AM CDT us Marcelina Lo NP LAB BLOOD ORDERABLES Final Re sult Performing Organization Address City/[facility]/ZIP Co de Phone Number [facility] Department [place] [address] * POCT glucose (06/14/2022 7:46 AM CDT) [facility] Glucose, POC 180 70 - 199 mg/dL [facility] Blood 06/14/2022 7:46 AM CDT 06/14/2022 7:46 AM CDT us Catherine Adams MD LAB POCT ORDERABLES - DEVIC E Final Result Performing Organization Address City/[facility]/ZIP Co de Phone Number [facility] Department [place] [address] * XR Chest 1 View (06/14/2022 4:14 [...] * POCT glucose (06/14/2022 4:01 AM CDT) [facility] Signature Glucose, POC 163 70 - 199 mg/dL [facility] Blood 06/14/2022 4:01 AM CDT 06/14/2022 4:01 AM CDT Catherine Adams MD LAB POCT ORDERABLES - DEVIC E Final Result [facility] [place] [address] * POCT glucose (06/13/2022 11:38 PM CDT) Glucose, POC 175 70 - 199 mg/dL [facility] Blood 06/13/2022 11:3 8 PM CDT 06/13/2022 11:38 PM CDT us Catherine Adams MD LAB POCT ORDERABLES - DEVIC E Final Result Performing Organization Address [facility] Co de Phone Number [facility] [place] [address] * (ABNORMAL) aPTT (06/13/2022 10:49 PM CDT) [facility] aPTT 72(H) 27 - 37 sec [facility] Comment: Interpretive Data Therapeutic heparin range: 60.0 - 94.0 seconds. Based on correlation with therapeutic heparin activity range of 0.3-0.7 Units/mL. Current interpretive data was last revised on 2020. Blood 06/13/2022 10:4 9 PM CDT 06/13/2022 11:55 PM CDT Narrative [facility] - 06/14/2022 12:04 AM CDT Check aPTT 6 hours after the start of Heparin infusion and 6 hours after any change in Heparin rate. (Target aPTT 61-80 seconds). Call Nephrology if outside range. us Catherine Adams MD LAB BLOOD ORDERABLES Final Result Performing Organization Address [facility] de Phone Number [facility] Department [place] [address] * (ABNORMAL) Vancomycin level trough (06/13/2022 10:49 PM CDT) Pathologist [facility] Vancomycin trough 23.3(H) 10.0 - 20.0 mcg/mL [facility] Blood 06/13/2022 10:4 9 PM CDT 06/13/2022 11:10 PM CDT Catherine Adams MD LAB BLOOD ORDERABLES Final Result Performing Organization Address [facility] Co de Phone Number [facility] [place] [address] * (ABNORMAL) CBC without differential (06/13/2022 10:49 PM CDT) WBC 15.0(H) 3.8 - 9.9 K/cumm [facility] Hgb 7.7(L) 13.0 - 17.5 g/dL [facility] Hct 22.7(L) 38.9 - 50.3 % [facility] Plt 206 150 - 400 K/cumm [facility] MPV 10.6 9.1 - 12.3 fL [facility] RBC 2.41(L) 4.30 - 5.80 M/cumm [facility] MCV 94.2 81.3 - 96.4 fL [facility] MCH 32.0 27.1 - 33.3 pg [facility] MCHC 33.9 32.3 - 35.7 g/dL [facility] RDW CV 13.7 11.1 - 14.9 % [facility] RDW SD 46.4 35.7 - 48.1 fL [facility] NRBC abs 0.05(H) 0.00 - 0.01 K/cumm [facility] Blood 06/13/2022 10:4 9 PM CDT 06/13/2022 11:10 PM CDT Catherine Adams MD LAB BLOOD ORDERABLES Final Result [facility] [place] [address] * (ABNORMAL) POCT glucose (06/13/2022 10:48 PM CDT) Glucose, POC 200(H) 70 - 199 mg/dL [facility] Blood 06/13/2022 10:4 8 PM CDT 06/13/2022 10:48 PM CDT us Catherine Adams MD LAB POCT ORDERABLES - DEVIC E Final Result Performing Organization Address City/[facility] Co de Phone Number [facility] [place] [address] * POCT glucose (06/13/2022 8:28 PM CDT) Pathologist [facility] Glucose, POC 182 70 - 199 mg/dL [facility] Blood 06/13/2022 8:28 PM CDT 06/13/2022 8:28 PM CDT Catherine Adams MD LAB POCT ORDERABLES - DEVIC E Final Result Performing Organization Address [facility] de Phone Number [facility] [place] [address] * (ABNORMAL) eGFR (06/13/2022 8:17 PM CDT) eGFR 35(L) 90 - 130 mL/min/1. 73 m2 [facility] Comment: Interpretive Data Reference Interval [...] Adams MD LAB BLOOD ORDERABLES Final Result [facility] [place] [address] * (ABNORMAL) Differential, auto (06/13/2022 8:17 PM CDT) Neutrophil abs 10.6(H) 1.7 - 6.5 K/cumm [facility] Imm gran abs 2.2(H) 0.0 - 0.1 K/cumm [facility] Lymphocyte abs 2.3 0.8 - 3.3 K/cumm [facility] Monocyte abs 1.5(H) 0.2 - 0.8 K/cumm [facility] Eosinophil abs 0.3 0.0 - 0.5 K/cumm [facility] Basophil abs 0.1 0.0 - 0.1 K/cumm [facility] Neutrophil pct 62.7 % [facility] Comment: Confirmed by smear review Interpretive Data Percent cell count reference ranges are not reported, since discordance with absolute values may lead to misinterpretation of CBC data. Current Interpretive Data was last revised on 2017. Imm gran pct 13.0 % [facility] Comment: Interpretive Data Percent cell count reference ranges are not reported, since discordance with absolute values may lead to misinterpretation of CBC data. Current Interpretive Data was last revised on 2017. Lymphocyte pct 13.4 % [facility] Comment: Interpretive Data Percent cell count reference ranges are not reported, since discordance with absolute values may lead to misinterpretation of CBC data. Current Interpretive Data was last revised on 2017. Monocyte pct 8.9 % [facility] Comment: Interpretive Data Percent cell count reference ranges are not reported, since discordance with absolute values may lead to misinterpretation of CBC data. Current Interpretive Data was last revised on 2017. Eosinophil pct 1.7 % [facility] Comment: Interpretive Data Percent cell count reference ranges are not reported, since discordance with absolute values may lead to misinterpretation of CBC data. Current Interpretive Data was last revised on 2017. Basophil pct 0.3 % [facility] Comment: Interpretive Data Percent cell count reference ranges are not reported, since discordance with absolute values may lead to misinterpretation of CBC data. Current Interpretive Data was last revised on 2017. Blood 06/13/2022 8:17 PM CDT 06/13/2022 8:34 PM CDT Catherine Adams MD LAB BLOOD ORDERABLES Final Result Performing Organization Address [facility]/ZIP Co de Phone Number [facility] Department [place] [address] * (ABNORMAL) Magnesium (06/13/2022 8:17 PM CDT) Pathologist [facility] Magnesium 2.7(H) 1.4 - 2.5 mg/dL [facility] Blood 06/13/2022 8:17 PM CDT 06/13/2022 8:33 PM CDT Catherine Adams MD LAB BLOOD ORDERABLES Final Result [facility] [place] [address] * (ABNORMAL) Comprehensive metabolic panel (06/13/2022 8:17 PM CDT) Pathologist [facility] Sodium 135 135 - 145 mmol/L [facility] Potassium, pl 4.9 3.3 - 4.9 mmol/L [facility] Chloride 99 97 - 110 mmol/L [facility] CO2 26 22 - 32 mmol/L [facility] Anion gap 10 2 - 15 mmol/L [facility] BUN 17 8 - 25 mg/dL [facility] Creatinine 2.21(H) 0.80 - 1.30 mg/dL [facility] Glucose 179 70 - 199 mg/dL [facility] Comment: Interpretive Data Fasting glucose [...] 2017. Calcium 8.9 8.5 - 10.3 mg/dL [facility] Bilirubin, total 0.6 0.1 - 1.2 mg/dL [facility] Protein, pl 6.2(L) 6.5 - 8.5 g/dL [facility] Albumin 3.0(L) 3.5 - 5.0 g/dL [facility] Alk phos 274(H) 40 - 130 Units/L [facility] ALT 47 7 - 55 Units/L [facility] AST 80(H) 10 - 50 Units/L [facility] Blood 06/13/2022 8:17 PM CDT 06/13/2022 8:33 PM CDT Catherine Adams MD LAB BLOOD ORDERABLES Final Result [facility] Department [place] [address] * Lactate, whole blood (06/13/2022 8:17 PM CDT) Lactate, bld 0.8 0.7 - 2.0 mmol/L [facility] Blood 06/13/2022 8:17 PM CDT 06/13/2022 8:26 PM CDT Marcelina Lo [employer] [facility] [employer] LAB BLOOD ORDERABLES Final Re sult Performing Organization Address [facility] Co de Phone Number [facility] Department [place] [address] * (ABNORMAL) Blood gas, arterial (06/13/2022 8:17 PM CDT) pH, Art 7.42 7.35 - 7.45 [facility] PCO2, Arterial 37 35 - 45 mmHg [facility] PO2, Arterial 73(L) 83 - 108 mmHg [facility] HCO3 Art (Calculated) 24 20 - 30 mmol/L [facility] BE, art 0 mmol/L [facility] Comment: Interpretive Data No Reference Range Established Current Interpretive Data was last revised on 2017 O2 Sat Art (Measured) 94 90 - 95 % [facility] Blood 06/13/2022 8:17 PM CDT 06/13/2022 8:26 PM CDT Marcelina Lo [facility] [facility] LAB BLOOD ORDERABLES Final Re sult Performing Organization Address [facility] Co de Phone Number [facility] Department [place] [address] * (ABNORMAL) Triglycerides (06/13/2022 8:17 PM CDT) Triglycerides 324(H) <=149 mg/dL [facility] Comment: Interpretive Data Ages < [...] PM CDT 06/13/2022 8:33 PM CDT Narrative [facility] - 06/13/2022 9:29 PM CDT While on propofol infusion. us Catherine Adams MD LAB BLOOD ORDERABLES Final Result Performing Organization Address [facility] Co de Phone Number [facility] Department [place] [address] * Phosphorus (06/13/2022 8:17 PM CDT) Phosphorus, pl 3.1 2.3 - 4.5 mg/dL [facility] Blood 06/13/2022 8:17 PM CDT 06/13/2022 8:33 PM CDT us Marcelina Lo NP LAB BLOOD ORDERABLES Final Re sult Performing Organization Address City/[facility] Co de Phone Number [facility] Department [place] [address] * (ABNORMAL) Beta-hydroxybutyrate (06/13/2022 8:17 PM CDT) Beta-Hydroxybut yrate 1.2(H) 0.0 - 0.5 mmol/L [facility] Blood 06/13/2022 8:17 PM CDT 06/13/2022 8:34 PM CDT Marcelina Lo [employer] [facility] LAB BLOOD ORDERABLES Edited R esult - Final [facility] [place] [address] * Lipase (06/13/2022 8:17 PM CDT) Pathologist [facility] Lipase 16 10 - 99 Units/L [facility] Blood 06/13/2022 8:17 PM CDT 06/13/2022 8:33 PM CDT Marcelina Lo [facility] [facility] [facility] LAB BLOOD ORDERABLES Final Re sult Performing Organization Address [facility]/ZIP Co de Phone Number [facility] [place] [address] * (ABNORMAL) CBC with auto differential (06/13/2022 8:17 PM CDT) [facility] WBC 16.9(H) 3.8 - 9.9 K/cumm [facility] Hgb 8.0(L) 13.0 - 17.5 g/dL [facility] Hct 24.2(L) 38.9 - 50.3 % [facility] Plt 202 150 - 400 K/cumm [facility] MPV 10.7 9.1 - 12.3 fL [facility] RBC 2.55(L) 4.30 - 5.80 M/cumm [facility] MCV 94.9 81.3 - 96.4 fL [facility] MCH 31.4 27.1 - 33.3 pg [facility] MCHC 33.1 32.3 - 35.7 g/dL [facility] RDW CV 13.7 11.1 - 14.9 % [facility] RDW SD 46.6 35.7 - 48.1 fL [facility] NRBC abs 0.07(H) 0.00 - 0.01 K/cumm [facility] Blood 06/13/2022 8:17 PM CDT 06/13/2022 8:34 PM CDT us Marcelina Lo [employer] [facility] LAB BLOOD ORDERABLES Final Re sult [facility] Department [place] [address] * XR Chest 1 View (06/13/2022 4:45 PM CDT) Anatomical Region Laterality Modality Body, Chest N/A Computed Radiogr aphy 06/13/2022 4:58 PM CDT Impressions 06/13/2022 4:58 PM CDT Comparison is made to the prior from 06/13/2022. Endotracheal tube terminates 3 cm above the boni. Nasogastric tube terminates below the diaphragms on the [id number]. Left internal jugular approach central venous catheter [...] tube terminates below the diaphragms on the [id number]. Left internal jugular approach central venous catheter [...] PM CDT 06/13/2022 4:32 PM CDT Narrative [facility] - 06/13/2022 4:42 PM CDT [...] BLOOD ORDERABLES Final Result Performing Organization Address [facility] de Phone Number [facility] [place] [address] * (ABNORMAL) Blood gas, arterial (06/13/2022 4:12 PM CDT) pH, Art 7.43 7.35 - 7.45 [facility] PCO2, Arterial 39 35 - 45 mmHg [facility] PO2, Arterial 63(L) 83 - 108 mmHg [facility] HCO3 Art (Calculated) 27 20 - 30 mmol/L [facility] BE, art 2 mmol/L [facility] Comment: Interpretive Data No Reference Range Established Current Interpretive Data was last revised on 2017 O2 Sat Art (Measured) 92 90 - 95 % [facility] Blood 06/13/2022 4:12 PM CDT 06/13/2022 4:20 PM CDT us Marcelina Lo NP LAB BLOOD ORDERABLES Final Re sult Performing Organization Address [facility] Co de Phone Number [facility] [place] [address] * Potassium, whole blood (06/13/2022 4:12 PM CDT) Potassium, bld 4.5 3.3 - 4.9 mmol/L [facility] Blood 06/13/2022 4:12 PM CDT 06/13/2022 4:20 PM CDT Marcelina Lo [facility] [facility] LAB BLOOD ORDERABLES Final Re sult Performing Organization Address City/[facility] Co de Phone Number [facility] [place] [address] * Lactate, whole blood (06/13/2022 4:12 PM CDT) Lactate, bld 0.9 0.7 - 2.0 mmol/L [facility] Blood 06/13/2022 4:12 PM CDT 06/13/2022 4:20 PM CDT Marcelina Lo [facility] [facility] LAB BLOOD ORDERABLES Final Re sult Performing Organization Address [facility] Co de Phone Number [place] [address] * POCT glucose (06/13/2022 4:11 PM CDT) Glucose, POC 99 70 - 199 mg/dL [facility] Blood 06/13/2022 4:11 PM CDT 06/13/2022 4:11 PM CDT Catherine Adams MD LAB POCT ORDERABLES - DEVIC E Final Result Performing Organization Address City/[facility] Co de Phone Number [place] [address] * POCT glucose (06/13/2022 12:29 PM CDT) Glucose, POC 129 70 - 199 mg/dL [facility] Blood 06/13/2022 12:2 9 PM CDT 06/13/2022 12:29 PM CDT us Catherine Adams MD LAB POCT ORDERABLES - DEVIC E Final Result Performing Organization Address [facility] Co de Phone Number [facility] Department [place] [address] * (ABNORMAL) Blood gas, arterial (06/13/2022 12:20 PM CDT) pH, Art 7.40 7.35 - 7.45 [facility] PCO2, Arterial 42 35 - 45 mmHg [facility] PO2, Arterial 60(L) 83 - 108 mmHg [facility] HCO3 Art (Calculated) 27 20 - 30 mmol/L [facility] BE, art 2 mmol/L [facility] Comment: Interpretive Data No Reference Range Established Current Interpretive Data was last revised on 2017 O2 Sat Art (Measured) 90 90 - 95 % [facility] Blood 06/13/2022 12:2 0 PM CDT 06/13/2022 1:01 PM CDT us Marcelina Lo [facility] [facility] LAB BLOOD ORDERABLES Final Re sult Performing Organization Address [facility] Co de Phone Number [facility] Department [place] [address] * XR Chest 1 View (06/13/2022 11:11 [...] it. Electronically signed by: Naty Berumen M.D. us Catherine Adams MD IMG XR PROCEDURES Final Res ult * (ABNORMAL) Potassium, whole blood (06/13/2022 9:41 AM CDT) [facility] Potassium, bld 5.7(H) 3.3 - 4.9 mmol/L [facility] Blood 06/13/2022 9:41 AM CDT 06/13/2022 9:47 AM CDT Marcelina Lo NP LAB BLOOD ORDERABLES Final Re sult [facility] Department [place] [address] * Lactate, whole blood (06/13/2022 9:41 AM CDT) [facility] Lactate, bld 1.0 0.7 - 2.0 mmol/L [facility] Blood 06/13/2022 9:41 AM CDT 06/13/2022 9:47 AM CDT Marcelina Lo [facility] [facility] LAB BLOOD ORDERABLES Final Re sult Performing Organization Address [facility] de Phone Number [facility] Department [place] [address] * (ABNORMAL) Blood gas, arterial (06/13/2022 9:41 AM CDT) [facility] pH, Art 7.40 7.35 - 7.45 [facility] PCO2, Arterial 40 35 - 45 mmHg [facility] PO2, Arterial 66(L) 83 - 108 mmHg [facility] HCO3 Art (Calculated) 26 20 - 30 mmol/L [facility] BE, art 0 mmol/L [facility] Comment: Interpretive Data No Reference Range Established Current Interpretive Data was last revised on 2017 O2 Sat Art (Measured) 93 90 - 95 % [facility] Blood 06/13/2022 9:41 AM CDT 06/13/2022 9:47 AM CDT us Marcelina Lo [facility] [facility] LAB BLOOD ORDERABLES Final Re sult Performing Organization Address [facility] de Phone Number [facility] Department [place] [address] * (ABNORMAL) POCT glucose (06/13/2022 9:38 AM CDT) [facility] Glucose, POC 215(H) 70 - 199 mg/dL [facility] Blood 06/13/2022 9:38 AM CDT 06/13/2022 9:38 AM CDT Catherine Adams MD LAB POCT ORDERABLES - DEVIC E Final Result [facility] Department [place] [address] * TRANSTHORACIC ECHO (TTE) COMPLETE W DOPPLER/CF W CONTRAST W BUBBLE (06/13/2022 9:34 AM CDT) LV EF 65 % [facility]ARD[facility]PORT Anatomical Region Laterality Modality Ultrasound 06/13/2022 7:10 AM CDT Narrative 06/13/2022 11:08 AM CDT Patient name: Adelia Garvin Date of test: 06/13/2022 Type of test: TTE w/Doppler Hospital #: 0 Date of : 1970 (M) Station Installer And Repairer: Elli Larsen RDCS Referring Physician: CATHERINE ADAMS MD Contrast Agent: 0.8 ml. Optison Admin., (2.2 ml Wasted) and NS Bubble Study Contrast Administered by: Ginna ROLAND Supervised/Interpreted by: Vincenzo Stoddard MD Diagnosis: Location: [facility] Reason for test: TTE with [...] 2=Hypo 3=Akinetic 4=Dyskin./Aneurysm 0=Not visualized) Parasternal [place]:MAS=1 BAS=1 MIL=1 IVETH=1 Parasternal [place]:MAS=1 MIS=1 FL=1 MIL=1 MAL=1 MA=1 Apical 4 Chambers:=1 MIS=1 BIS=1 BAL=1 MAL=1 AL=1 AC=1 Apical 2 Chambers:AI=1 FL=1 BI=1 BA=1 MA=1 AA=1 AC=1 LV Global [...] MD By signing this report, the attending oil paint shader certifies that he or she has personally supervised and interpreted the echocardiogram and has reviewed and or edited and agrees with the written comments contained within the report. Procedure Note Vincenzo Stoddard MD - 06/13/2022 Patient name: Adelia Garvin Date of test: 06/13/2022 Type of test: TTE w/Doppler [facility] #: 0 Date of : 1970 (M) Station Installer And Repairer: Elli Larsen RDCS Referring Physician: CATHERINE ADAMS MD Contrast Agent: 0.8 ml. Optison Admin., (2.2 ml Wasted) and NS Bubble Study Contrast Administered by: Ginna ROLAND Supervised/Interpreted by: Vincenzo Stoddard MD Diagnosis: Location: [facility] Reason for test: TTE with [...] 2=Hypo 3=Akinetic 4=Dyskin./Aneurysm 0=Not visualized) Parasternal [place]:MAS=1 BAS=1 MIL=1 IVETH=1 Parasternal [place]:MAS=1 MIS=1 FL=1 MIL=1 MAL=1 MA=1 Apical 4 Chambers:=1 MIS=1 BIS=1 BAL=1 MAL=1 AL=1 AC=1 Apical 2 Chambers:AI=1 FL=1 BI=1 BA=1 MA=1 AA=1 AC=1 LV Global [...] MD By signing this report, the attending oil paint shader certifies that he or she has personally supervised and interpreted the echocardiogram and has reviewed and or edited and agrees with the written comments contained within the report. us Catherine Adams MD CV ECHO PROCEDURES Final Re sult * (ABNORMAL) Manual Differential (06/13/2022 9:33 AM CDT) Differential Manual [facility] Cells Counted 115 [facility] Neutrophil abs 13.0(H) 1.7 - 6.5 K/cumm [facility] Imm gran abs 1.2(H) 0.0 - 0.1 K/cumm [facility] Lymphocyte abs 0.7(L) 0.8 - 3.3 K/cumm [facility] Monocyte abs 0.4 0.2 - 0.8 K/cumm [facility] Eosinophil abs 0.3 0.0 - 0.5 K/cumm [facility] Neutrophil pct 83.6 % [facility] Comment: Interpretive Data Percent cell count reference ranges are not reported, since discordance with absolute values may lead to misinterpretation of CBC data. Current Interpretive Data was last revised on 2017. Lymphocyte pct 4.3 % [facility] Comment: Interpretive Data Percent cell count reference ranges are not reported, since discordance with absolute values may lead to misinterpretation of CBC data. Current Interpretive Data was last revised on 2017. Monocyte pct 2.6 % [facility] Comment: Interpretive Data Percent cell count reference ranges are not reported, since discordance with absolute values may lead to misinterpretation of CBC data. Current Interpretive Data was last revised on 2017. Eosinophil pct 1.7 % [facility] Comment: Interpretive Data Percent cell count reference ranges are not reported, since discordance with absolute values may lead to misinterpretation of CBC data. Current Interpretive Data was last revised on 2017. Metamyelocyte pct 5.2 % [facility] Myelocyte pct 2.6 % [facility] Blood 06/13/2022 9:33 AM CDT 06/13/2022 10:10 AM CDT Catherine Adams MD LAB BLOOD ORDERABLES Final Result [facility] [place] [address] * (ABNORMAL) eGFR (06/13/2022 9:33 AM CDT) eGFR 34(L) 90 - 130 mL/min/1. 73 m2 [facility] Comment: Interpretive Data Reference Interval Normal ?>/= [...] Adams MD LAB BLOOD ORDERABLES Final Result [facility] Department [place] [address] * (ABNORMAL) Magnesium (06/13/2022 9:33 AM CDT) Magnesium 2.8(H) 1.4 - 2.5 mg/dL [facility] Blood 06/13/2022 9:33 AM CDT 06/13/2022 10:06 AM CDT us Marcelina Lo NP LAB BLOOD ORDERABLES Final Re sult [facility] [place] [address] * (ABNORMAL) Comprehensive metabolic panel (06/13/2022 9:33 AM CDT) Pathologist [facility] Sodium 135 135 - 145 mmol/L [facility] Potassium, pl 5.6(H) 3.3 - 4.9 mmol/L [facility] Chloride 98 97 - 110 mmol/L [facility] CO2 26 22 - 32 mmol/L [facility] Anion gap 11 2 - 15 mmol/L [facility] BUN 19 8 - 25 mg/dL [facility] Creatinine 2.26(H) 0.80 - 1.30 mg/dL [facility] Glucose 217(H) 70 - 199 mg/dL [facility] Comment: Interpretive Data Fasting glucose [...] Calcium 8.7 8.5 - 10.3 mg/dL [facility] Bilirubin, total 0.7 0.1 - 1.2 mg/dL [facility] Protein, pl 6.5 6.5 - 8.5 g/dL [facility] Albumin 3.2(L) 3.5 - 5.0 g/dL [facility] Alk phos 300(H) 40 - 130 Units/L [facility] ALT 55 7 - 55 Units/L [facility] AST 90(H) 10 - 50 Units/L [facility] Blood 06/13/2022 9:33 AM CDT 06/13/2022 10:06 AM CDT us Marcelina Lo [employer] [facility] [facility]NA[facility] LAB BLOOD ORDERABLES Final Re sult Performing Organization Address [facility] Co de Phone Number [facility] Department [place] [address] * (ABNORMAL) CBC with auto differential (06/13/2022 9:33 AM CDT) Pathologist [facility] WBC 15.6(H) 3.8 - 9.9 K/cumm [facility] Hgb 7.7(L) 13.0 - 17.5 g/dL [facility] Hct 23.1(L) 38.9 - 50.3 % [facility] Plt 191 150 - 400 K/cumm [facility] MPV 10.9 9.1 - 12.3 fL [facility] RBC 2.45(L) 4.30 - 5.80 M/cumm [facility] MCV 94.3 81.3 - 96.4 fL [facility] MCH 31.4 27.1 - 33.3 pg [facility] MCHC 33.3 32.3 - 35.7 g/dL [facility] RDW CV 13.6 11.1 - 14.9 % [facility] RDW SD 46.7 35.7 - 48.1 fL [facility] NRBC abs 0.05(H) 0.00 - 0.01 K/cumm [facility] Blood 06/13/2022 9:33 AM CDT 06/13/2022 10:06 AM CDT us Marcelina Lo [facility] [facility] LAB BLOOD ORDERABLES Final Re sult Performing Organization Address [facility]/ZIP Co de Phone Number [facility] Department [place] [address] * (ABNORMAL) POCT glucose (06/13/2022 4:40 AM CDT) Glucose, POC 280(H) 70 - 199 mg/dL [facility] Blood 06/13/2022 4:40 AM CDT 06/13/2022 4:40 AM CDT Catherine Adams MD LAB POCT ORDERABLES - DEVIC E Final Result Performing Organization Address [facility] de Phone Number [facility] Department [place] [address] * (ABNORMAL) Blood gas, arterial (06/13/2022 2:26 AM CDT) pH, Art 7.35 7.35 - 7.45 [facility] PCO2, Arterial 42 35 - 45 mmHg [facility] PO2, Arterial 78(L) 83 - 108 mmHg [facility] HCO3 Art (Calculated) 24 20 - 30 mmol/L [facility] BE, art -3 mmol/L [facility] Comment: Interpretive Data No Reference Range Established Current Interpretive Data was last revised on 2017 O2 Sat Art (Measured) 94 90 - 95 % [facility] Blood 06/13/2022 2:26 AM CDT 06/13/2022 2:58 AM CDT us Marcelina Lo [employer] [facility] [facility] ANALY[facility] LAB BLOOD ORDERABLES Final Re sult Performing Organization Address [facility] Co de Phone Number [facility] Department [place] [address] * (ABNORMAL) Blood gas, arterial (06/13/2022 1:11 AM CDT) pH, Art 7.35 7.35 - 7.45 [facility] PCO2, Arterial 44 35 - 45 mmHg [facility] PO2, Arterial 72(L) 83 - 108 mmHg [facility] HCO3 Art (Calculated) 25 20 - 30 mmol/L [facility] BE, art -1 mmol/L [facility] Comment: Interpretive Data No Reference Range Established Current Interpretive Data was last revised on 2017 O2 Sat Art (Measured) 94 90 - 95 % [facility] Blood 06/13/2022 1:11 AM CDT 06/13/2022 1:30 AM CDT us Marcelina Lo [facility] [facility]NA[facility] LAB BLOOD ORDERABLES Final Re sult Performing Organization Address City/[facility]/ZIP Co de Phone Number [facility] [place] [address] * Potassium, whole blood (06/13/2022 1:11 AM CDT) Potassium, bld 4.8 3.3 - 4.9 mmol/L [facility] Blood 06/13/2022 1:11 AM CDT 06/13/2022 1:30 AM CDT us Catherine Adams MD LAB BLOOD ORDERABLES Final Result Performing Organization Address City/[facility] Co de Phone Number [facility] [place] [address] * POCT glucose (06/12/2022 11:26 PM CDT) Glucose, POC 123 70 - 199 mg/dL [facility] Blood 06/12/2022 11:2 6 PM CDT 06/12/2022 11:26 PM CDT Catherine Adams MD LAB POCT ORDERABLES - DEVIC E Final Result Performing Organization Address City/[facility]/ZIP Co de Phone Number [place] [address] * Lactate, whole blood (06/12/2022 8:55 PM CDT) Lactate, bld 1.2 0.7 - 2.0 mmol/L [facility] Blood 06/12/2022 8:55 PM CDT 06/12/2022 9:59 PM CDT us Jeffrey Green MD LAB BLOOD ORDERABLES Final Result Performing Organization Address [facility] de Phone Number [facility] Department [place] [address] * (ABNORMAL) eGFR (06/12/2022 8:47 PM CDT) eGFR 35(L) 90 - 130 mL/min/1. 73 m2 [facility] Comment: Interpretive Data Reference Interval [...] BLOOD ORDERABLES Final Result ALESSANDRA CARRION [facility] [place] [address] * (ABNORMAL) Differential, auto (06/12/2022 8:47 PM CDT) Neutrophil abs 9.5(H) 1.7 - 6.5 K/cumm [facility] Imm gran abs 1.9(H) 0.0 - 0.1 K/cumm [facility] Lymphocyte abs 1.8 0.8 - 3.3 K/cumm [facility] Monocyte abs 1.0(H) 0.2 - 0.8 K/cumm [facility] Eosinophil abs 0.3 0.0 - 0.5 K/cumm [facility] Basophil abs 0.0 0.0 - 0.1 K/cumm [facility] Neutrophil pct 65.3 % [facility] Comment: Confirmed by smear review Interpretive Data Percent cell count reference ranges are not reported, since discordance with absolute values may lead to misinterpretation of CBC data. Current Interpretive Data was last revised on 2017. Imm gran pct 13.1 % [facility] Comment: Interpretive Data Percent cell count reference ranges are not reported, since discordance with absolute values may lead to misinterpretation of CBC data. Current Interpretive Data was last revised on 2017. Lymphocyte pct 12.0 % [facility] Comment: Interpretive Data Percent cell count reference ranges are not reported, since discordance with absolute values may lead to misinterpretation of CBC data. Current Interpretive Data was last revised on 2017. Monocyte pct 7.0 % [facility] Comment: Interpretive Data Percent cell count reference ranges are not reported, since discordance with absolute values may lead to misinterpretation of CBC data. Current Interpretive Data was last revised on 2017. Eosinophil pct 2.3 % [facility] Comment: Interpretive Data Percent cell count reference ranges are not reported, since discordance with absolute values may lead to misinterpretation of CBC data. Current Interpretive Data was last revised on 2017. Basophil pct 0.3 % [facility] Comment: Interpretive Data Percent cell count reference ranges are not reported, since discordance with absolute values may lead to misinterpretation of CBC data. Current Interpretive Data was last revised on 2017. Blood 06/12/2022 8:47 PM CDT 06/12/2022 10:10 PM CDT Catherine Aadms MD LAB BLOOD ORDERABLES Final Result Performing Organization Address City/[facility]/ZIP Co de Phone Number [facility] [place] [address] * (ABNORMAL) Magnesium (06/12/2022 8:47 PM CDT) Pathologist [facility] Magnesium 2.7(H) 1.4 - 2.5 mg/dL [facility] Blood 06/12/2022 8:47 PM CDT 06/12/2022 10:04 PM CDT Catherine Adams MD LAB BLOOD ORDERABLES Final Result Performing Organization Address [facility] de Phone Number [facility] [place] [address] * (ABNORMAL) Comprehensive metabolic panel (06/12/2022 8:47 PM CDT) Pathologist [facility] Sodium 134(L) 135 - 145 mmol/L [facility] Potassium, pl 5.1(H) 3.3 - 4.9 mmol/L [facility] Comment:Hemolyzed; Potassium value may be falsely elevated by as much as 0.6-1.0 mmol/L. Suggest redraw and reanalysis. Chloride 101 97 - 110 mmol/L [facility] CO2 24 22 - 32 mmol/L [facility] Anion gap 9 2 - 15 mmol/L [facility] BUN 19 8 - 25 mg/dL [facility] Creatinine 2.22(H) 0.80 - 1.30 mg/dL [facility] Glucose 101 70 - 199 mg/dL [facility] Comment: Interpretive Data Fasting glucose [...] 2017. Calcium 8.7 8.5 - 10.3 mg/dL [facility] Bilirubin, total 0.8 0.1 - 1.2 mg/dL [facility] Protein, pl 6.5 6.5 - 8.5 g/dL [facility] Albumin 2.7(L) 3.5 - 5.0 g/dL [facility] Alk phos 300(H) 40 - 130 Units/L [facility] ALT 57(H) 7 - 55 Units/L [facility] AST 110(H) 10 - 50 Units/L [facility] Comment:Hemolyzed; result ma y be falsely elevated Blood 06/12/2022 8:47 PM CDT 06/12/2022 10:04 PM CDT Catherine Adams MD LAB BLOOD ORDERABLES Final Result [facility] Department [place] [address] * (ABNORMAL) Blood gas, arterial (06/12/2022 8:47 PM CDT) pH, Art 7.36 7.35 - 7.45 [facility] PCO2, Arterial 47(H) 35 - 45 mmHg [facility] PO2, Arterial 84 83 - 108 mmHg [facility] HCO3 Art (Calculated) 27 20 - 30 mmol/L [facility] BE, art 1 mmol/L [facility] Comment: Interpretive Data No Reference Range Established Current Interpretive Data was last revised on 2017 O2 Sat Art (Measured) 96(H) 90 - 95 % [facility] Blood 06/12/2022 8:47 PM CDT 06/12/2022 9:59 PM CDT us Marcelina Lo NP LAB BLOOD ORDERABLES Final Re sult Performing Organization Address [facility] [place] [address] * (ABNORMAL) aPTT (06/12/2022 8:47 PM CDT) aPTT 78(H) 27 - 37 sec [facility] Comment: Interpretive Data Therapeutic heparin range: 60.0 - 94.0 seconds. Based on correlation with therapeutic heparin activity range of 0.3-0.7 Units/mL. Current interpretive data was last revised on 2020. Blood 06/12/2022 8:47 PM CDT 06/12/2022 10:12 PM CDT Narrative [facility] - 06/12/2022 10:40 PM CDT Check aPTT 6 hours after the start of Heparin infusion and 6 hours after any change in Heparin rate. (Target aPTT 61-80 seconds). Call Nephrology if outside range. Cahterine Adams MD LAB BLOOD ORDERABLES Final Result Performing Organization Address [facility] [place] [address] * (ABNORMAL) Triglycerides (06/12/2022 8:47 PM CDT) Triglycerides 248(H) <=149 mg/dL [facility] Comment: Interpretive Data Ages < [...] PM CDT 06/12/2022 10:04 PM CDT Narrative [facility] - 06/12/2022 10:44 PM CDT While on propofol infusion. us Catherine Adams MD LAB BLOOD ORDERABLES Final Result Performing Organization Address [facility]/ZIP Co de Phone Number [facility] Department [place] [address] * Phosphorus (06/12/2022 8:47 PM CDT) Phosphorus, pl 3.5 2.3 - 4.5 mg/dL [facility] Blood 06/12/2022 8:47 PM CDT 06/12/2022 10:04 PM CDT us Marcelina Lo NP LAB BLOOD ORDERABLES Final Re sult Performing Organization Address [facility] Co de Phone Number [facility] Department [place] [address] * Beta-hydroxybutyrate (06/12/2022 8:47 PM CDT) Beta-Hydroxybut yrate 0.2 0.0 - 0.5 mmol/L [facility] Blood 06/12/2022 8:47 PM CDT 06/12/2022 10:00 PM CDT Marcelina Lo [employer] LAB BLOOD ORDERABLES Edited R esult - Final [facility] Department [place] [address] * Lipase (06/12/2022 8:47 PM CDT) [facility] Lipase 16 10 - 99 Units/L [facility] Blood 06/12/2022 8:47 PM CDT 06/12/2022 10:04 PM CDT Marcelina Lo [employer] [facility] [employer] LAB BLOOD ORDERABLES Final Re sult Performing Organization Address [facility] Co de Phone Number [facility] [place] [address] * (ABNORMAL) CBC with auto differential (06/12/2022 8:47 PM CDT) [facility] WBC 14.6(H) 3.8 - 9.9 K/cumm [facility] Hgb 8.1(L) 13.0 - 17.5 g/dL [facility] Hct 24.7(L) 38.9 - 50.3 % [facility] Plt 207 150 - 400 K/cumm [facility] MPV 11.0 9.1 - 12.3 fL [facility] RBC 2.61(L) 4.30 - 5.80 M/cumm [facility] MCV 94.6 81.3 - 96.4 fL [facility] MCH 31.0 27.1 - 33.3 pg [facility] MCHC 32.8 32.3 - 35.7 g/dL [facility] RDW CV 13.4 11.1 - 14.9 % [facility] RDW SD 45.9 35.7 - 48.1 fL [facility] NRBC abs 0.03(H) 0.00 - 0.01 K/cumm [facility] Blood 06/12/2022 8:47 PM CDT 06/12/2022 10:10 PM CDT us Marcelina Lo [employer] [facility] [employer] LAB BLOOD ORDERABLES Final Re sult Performing Organization Address [facility] Co de Phone Number [facility] [place] [address] * POCT glucose (06/12/2022 8:44 PM CDT) Glucose, POC 99 70 - 199 mg/dL [facility] Blood 06/12/2022 8:44 PM CDT 06/12/2022 8:44 PM CDT Catherine Adams MD LAB POCT ORDERABLES - DEVIC E Final Result Performing Organization Address [facility] de Phone Number [facility] [place] [address] * POCT glucose (06/12/2022 4:01 PM CDT) Glucose, POC 110 70 - 199 mg/dL [facility] Blood 06/12/2022 4:01 PM CDT 06/12/2022 4:01 PM CDT Cathernie Adams MD LAB POCT ORDERABLES - DEVIC E Final Result Performing Organization Address [facility] de Phone Number [facility] [place] [address] * (ABNORMAL) aPTT (06/12/2022 4:01 PM CDT) aPTT 75(H) 27 - 37 sec [facility] Comment: Interpretive Data Therapeutic heparin range: 60.0 - 94.0 seconds. Based on correlation with therapeutic heparin activity range of 0.3-0.7 Units/mL. Current interpretive data was last revised on 2020. Blood 06/12/2022 4:01 PM CDT 06/12/2022 4:27 PM CDT Narrative [facility] - 06/12/2022 4:48 PM CDT Check aPTT 6 hours after the start of Heparin infusion and 6 hours after any change in Heparin rate. (Target aPTT 61-80 seconds). Call Nephrology if outside range. Catherine Adams MD LAB BLOOD ORDERABLES Final Result Performing Organization Address [facility] de Phone Number [facility] Department [place] [address] * Blood gas, arterial (06/12/2022 4:01 PM CDT) Pathologist [facility] pH, Art 7.42 7.35 - 7.45 [facility] PCO2, Arterial 41 35 - 45 mmHg [facility] PO2, Arterial 94 83 - 108 mmHg [facility] HCO3 Art (Calculated) 27 20 - 30 mmol/L [facility] BE, art 2 mmol/L [facility] Comment: Interpretive Data No Reference Range Established Current Interpretive Data was last revised on 2017 Blood 06/12/2022 4:01 PM CDT 06/12/2022 4:16 PM CDT Marcelina Lo NP LAB BLOOD ORDERABLES Final Re sult Performing Organization Address [facility] de Phone Number [facility] Department [place] [address] * Aerobic culture and gram stain Tracheal aspirate Tracheal (06/12/2022 2:31 PM CDT) Pathologist [facility] Direct Specimen Exam Stain: Rare polymorphonuclear leukocytes seen. Few squamous epithelial cells seen. Rare mixed bacterial stone seen on Gram stain. [facility] Report Final Report: Insignificant growth based on current clinical standards. [facility] Tracheal aspirate (Tracheal) 06/12/2022 2:31 PM CDT 06/12/2022 3:47 PM CDT Narrative ALESSANDRA CARRION - 06/14/2022 11:49 AM CDT Testing performed by [facility] ([phone]) Specimens submitted from normally sterile body sites [...] LAB MICROBIOLOGY - GENERAL ORDERABLES Final Result [facility] [place] [address] * XR Chest 1 View (06/12/2022 1:10 [...] pH, Art 7.41 7.35 - 7.45 [facility] PCO2, Arterial 38 35 - 45 mmHg [facility] PO2, Arterial 135(H) 83 - 108 mmHg [facility] HCO3 Art (Calculated) 25 20 - 30 mmol/L [facility] BE, art 0 mmol/L [facility] Comment: Interpretive Data No Reference Range Established Current Interpretive Data was last revised on 2017 O2 Sat Art (Measured) 97(H) 90 - 95 % [facility] Blood 06/12/2022 12:5 6 PM CDT 06/12/2022 1:02 PM CDT us Marcelina Lo [employer] LAB BLOOD ORDERABLES Final Re sult [facility] [place] [address] * (ABNORMAL) Blood gas, arterial (06/12/2022 11:37 AM CDT) pH, Art 7.41 7.35 - 7.45 [facility] PCO2, Arterial 40 35 - 45 mmHg [facility] PO2, Arterial 82(L) 83 - 108 mmHg [facility] HCO3 Art (Calculated) 26 20 - 30 mmol/L [facility] BE, art 0 mmol/L [facility] Comment: Interpretive Data No Reference Range Established Current Interpretive Data was last revised on 2017 O2 Sat Art (Measured) 96(H) 90 - 95 % [facility] Blood 06/12/2022 11:3 7 AM CDT 06/12/2022 11:43 AM CDT Marcelina Lo [employer] LAB BLOOD ORDERABLES Final Re sult Performing Organization Address [facility] Co de Phone Number [facility] Department [place] [address] * POCT glucose (06/12/2022 11:36 AM CDT) Glucose, POC 161 70 - 199 mg/dL [facility] Blood 06/12/2022 11:3 6 AM CDT 06/12/2022 11:36 AM CDT Catherine Adams MD LAB POCT ORDERABLES - DEVIC E Final Result Performing Organization Address [facility] de Phone Number [facility] Department [place] [address] * (ABNORMAL) Blood gas, arterial (06/12/2022 9:53 AM CDT) pH, Art 7.42 7.35 - 7.45 [facility] PCO2, Arterial 36 35 - 45 mmHg [facility] PO2, Arterial 106 83 - 108 mmHg [facility] HCO3 Art (Calculated) 25 20 - 30 mmol/L [facility] BE, art 0 mmol/L [facility] Comment: Interpretive Data No Reference Range Established Current Interpretive Data was last revised on 2017 O2 Sat Art (Measured) 98(H) 90 - 95 % [facility] Blood 06/12/2022 9:53 AM CDT 06/12/2022 10:02 AM CDT Marcelina Lo NP LAB BLOOD ORDERABLES Final Re sult [facility] Department [place] [address] * (ABNORMAL) Manual Differential (06/12/2022 8:02 AM CDT) Differential Manual [facility] Cells Counted 116 [facility] Neutrophil abs 9.1(H) 1.7 - 6.5 K/cumm [facility] Imm gran abs 0.8(H) 0.0 - 0.1 K/cumm [facility] Lymphocyte abs 1.9 0.8 - 3.3 K/cumm [facility] Monocyte abs 0.3 0.2 - 0.8 K/cumm [facility] Eosinophil abs 0.4 0.0 - 0.5 K/cumm [facility] Neutrophil pct 72.5 % [facility] Comment: Interpretive Data Percent cell count reference ranges are not reported, since discordance with absolute values may lead to misinterpretation of CBC data. Current Interpretive Data was last revised on 2017. Lymphocyte pct 15.5 % [facility] Comment: Interpretive Data Percent cell count reference ranges are not reported, since discordance with absolute values may lead to misinterpretation of CBC data. Current Interpretive Data was last revised on 2017. Monocyte pct 2.6 % [facility] Comment: Interpretive Data Percent cell count reference ranges are not reported, since discordance with absolute values may lead to misinterpretation of CBC data. Current Interpretive Data was last revised on 2017. Eosinophil pct 3.4 % [facility] Comment: Interpretive Data Percent cell count reference ranges are not reported, since discordance with absolute values may lead to misinterpretation of CBC data. Current Interpretive Data was last revised on 2017. Metamyelocyte pct 2.6 % [facility] Myelocyte pct 3.4 % [facility] Blood 06/12/2022 8:02 AM CDT 06/12/2022 8:32 AM CDT Catherine Adams MD LAB BLOOD ORDERABLES Final Result Performing Organization Address City/[facility]/ZIP Co de Phone Number ALESSANDRA CARRION [facility] Department [place] [address] * (ABNORMAL) eGFR (06/12/2022 8:02 AM CDT) eGFR 31(L) 90 - 130 mL/min/1. 73 m2 [facility] Comment: Interpretive Data Reference Interval Normal ?>/= [...] AM CDT 06/12/2022 8:28 AM CDT us Catherine Adams MD LAB BLOOD ORDERABLES Final Result Performing Organization Address City/[facility]/ZIP Co de Phone Number ALESSANDRA CARRION [facility] [place] [address] * (ABNORMAL) aPTT (06/12/2022 8:02 AM CDT) aPTT 70(H) 27 - 37 sec [facility] Comment: Interpretive Data Therapeutic heparin range: 60.0 - 94.0 seconds. Based on correlation with therapeutic heparin activity range of 0.3-0.7 Units/mL. Current interpretive data was last revised on 2020. Blood 06/12/2022 8:02 AM CDT 06/12/2022 8:15 AM CDT Narrative [facility] - 06/12/2022 8:43 AM CDT Check aPTT 6 hours after the start of Heparin infusion and 6 hours after any change in Heparin rate. (Target aPTT 61-80 seconds). Call Nephrology if outside range. us Catherine Adams MD LAB BLOOD ORDERABLES Final Result Performing Organization Address [facility] Co de Phone Number [facility] [place] [address] * (ABNORMAL) Blood gas, arterial (06/12/2022 8:02 AM CDT) pH, Art 7.47(H) 7.35 - 7.45 [facility] PCO2, Arterial 34(L) 35 - 45 mmHg [facility] PO2, Arterial 71(L) 83 - 108 mmHg [facility] HCO3 Art (Calculated) 25 20 - 30 mmol/L [facility] BE, art 1 mmol/L [facility] Comment: Interpretive Data No Reference Range Established Current Interpretive Data was last revised on 2017 O2 Sat Art (Measured) 95 90 - 95 % [facility] Blood 06/12/2022 8:02 AM CDT 06/12/2022 8:13 AM CDT us Marcelina Lo NP LAB BLOOD ORDERABLES Final Re sult Performing Organization Address [facility] Co de Phone Number [facility] [place] [address] * Magnesium (06/12/2022 8:02 AM CDT) Magnesium 2.5 1.4 - 2.5 mg/dL [facility] Blood 06/12/2022 8:02 AM CDT 06/12/2022 8:28 AM CDT us Marcelina Lo [employer] LAB BLOOD ORDERABLES Final Re sult [facility] Department [place] [address] * (ABNORMAL) Comprehensive metabolic panel (06/12/2022 8:02 AM CDT) Pathologist [facility] Sodium 135 135 - 145 mmol/L [facility] Potassium, pl 4.4 3.3 - 4.9 mmol/L [facility] Chloride 101 97 - 110 mmol/L [facility] CO2 26 22 - 32 mmol/L [facility] Anion gap 8 2 - 15 mmol/L [facility] BUN 23 8 - 25 mg/dL [facility] Creatinine 2.45(H) 0.80 - 1.30 mg/dL [facility] Glucose 157 70 - 199 mg/dL [facility] Comment: Interpretive Data Fasting glucose [...] 2017. Calcium 8.4(L) 8.5 - 10.3 mg/dL [facility] Bilirubin, total 0.7 0.1 - 1.2 mg/dL [facility] Protein, pl 5.8(L) 6.5 - 8.5 g/dL [facility] Albumin 2.6(L) 3.5 - 5.0 g/dL [facility] Alk phos 248(H) 40 - 130 Units/L [facility] ALT 49 7 - 55 Units/L [facility] AST 95(H) 10 - 50 Units/L [facility] Blood 06/12/2022 8:02 AM CDT 06/12/2022 8:28 AM CDT Marcelina Lo [employer] [facility] [employer]NALY[employer] LAB BLOOD ORDERABLES Final Re sult Performing Organization Address [facility] Co de Phone Number [facility] Department [place] [address] * (ABNORMAL) CBC with auto differential (06/12/2022 8:02 AM CDT) WBC 12.5(H) 3.8 - 9.9 K/cumm [facility] Hgb 7.5(L) 13.0 - 17.5 g/dL [facility] Hct 22.3(L) 38.9 - 50.3 % [facility] Plt 174 150 - 400 K/cumm [facility] MPV 11.0 9.1 - 12.3 fL [facility] RBC 2.36(L) 4.30 - 5.80 M/cumm [facility] MCV 94.5 81.3 - 96.4 fL [facility] MCH 31.8 27.1 - 33.3 pg [facility] MCHC 33.6 32.3 - 35.7 g/dL [facility] RDW CV 13.5 11.1 - 14.9 % [facility] RDW SD 45.5 35.7 - 48.1 fL [facility] NRBC abs 0.02(H) 0.00 - 0.01 K/cumm [facility] Blood 06/12/2022 8:02 AM CDT 06/12/2022 8:27 AM CDT Marcelina Lo [employer]NA[employer] LAB BLOOD ORDERABLES Final Re sult Performing Organization Address City/[facility]/ZIP Co de Phone Number [facility] [place] [address] * POCT glucose (06/12/2022 8:01 AM CDT) Glucose, POC 143 70 - 199 mg/dL [facility] Blood 06/12/2022 8:01 AM CDT 06/12/2022 8:01 AM CDT Catherine Adams MD LAB POCT ORDERABLES - DEVIC E Final Result Performing Organization Address City/[facility] [place] [address] * (ABNORMAL) Blood gas, arterial (06/12/2022 6:21 AM CDT) pH, Art 7.41 7.35 - 7.45 [facility] PCO2, Arterial 40 35 - 45 mmHg [facility] PO2, Arterial 86 83 - 108 mmHg [facility] HCO3 Art (Calculated) 26 20 - 30 mmol/L [facility] BE, art 1 mmol/L [facility] Comment: Interpretive Data No Reference Range Established Current Interpretive Data was last revised on 2017 O2 Sat Art (Measured) 96(H) 90 - 95 % [facility] Blood 06/12/2022 6:21 AM CDT 06/12/2022 6:29 AM CDT Catherine Adams MD LAB BLOOD ORDERABLES Final Result [facility] Department [place] [address] * POCT glucose (06/12/2022 4:57 AM CDT) Glucose, POC 163 70 - 199 mg/dL [facility] Blood 06/12/2022 4:57 AM CDT 06/12/2022 4:57 AM CDT Catherine Adams MD LAB POCT ORDERABLES - DEVIC E Final Result Performing Organization Address [facility] [facility] Co de Phone Number [facility] [place] [address] * (ABNORMAL) aPTT (06/12/2022 1:52 AM CDT) aPTT 52(H) 27 - 37 sec [facility] Comment: Interpretive Data Therapeutic heparin range: 60.0 - 94.0 seconds. Based on correlation with therapeutic heparin activity range of 0.3-0.7 Units/mL. Current interpretive data was last revised on 2020. Blood 06/12/2022 1:52 AM CDT 06/12/2022 2:15 AM CDT Narrative [facility] - 06/12/2022 2:39 AM CDT Check aPTT 6 hours after the start of Heparin infusion and 6 hours after any change in Heparin rate. (Target aPTT 61-80 seconds). Call Nephrology if outside range. Catherine Adams MD LAB BLOOD ORDERABLES Final Result Performing Organization Address [facility] [place] [address] * (ABNORMAL) POCT glucose (06/11/2022 11:32 PM CDT) Glucose, POC 206(H) 70 - 199 mg/dL [facility] Blood 06/11/2022 11:3 2 PM CDT 06/11/2022 11:32 PM CDT Catherine Adams MD LAB POCT ORDERABLES - DEVIC E Final Result Performing Organization Address City/[facility] Co de Phone Number [facility] [place] [address] * (ABNORMAL) Manual Differential (06/11/2022 11:25 PM CDT) Differential Manual [facility] Cells Counted 119 [facility] Neutrophil abs 10.8(H) 1.7 - 6.5 K/cumm [facility] Imm gran abs 0.6(H) 0.0 - 0.1 K/cumm [facility] Lymphocyte abs 1.4 0.8 - 3.3 K/cumm [facility] Monocyte abs 0.6 0.2 - 0.8 K/cumm [facility] Eosinophil abs 0.2 0.0 - 0.5 K/cumm [facility] Neutrophil pct 79.9 % [facility] Comment: Interpretive Data Percent cell count reference ranges are not reported, since discordance with absolute values may lead to misinterpretation of CBC data. Current Interpretive Data was last revised on 2017. Lymphocyte pct 10.1 % [facility] Comment: Interpretive Data Percent cell count reference ranges are not reported, since discordance with absolute values may lead to misinterpretation of CBC data. Current Interpretive Data was last revised on 2017. Monocyte pct 4.2 % [facility] Comment: Interpretive Data Percent cell count reference ranges are not reported, since discordance with absolute values may lead to misinterpretation of CBC data. Current Interpretive Data was last revised on 2017. Eosinophil pct 1.7 % [facility] Comment: Interpretive Data Percent cell count reference ranges are not reported, since discordance with absolute values may lead to misinterpretation of CBC data. Current Interpretive Data was last revised on 2017. Metamyelocyte pct 0.8 % [facility] Myelocyte pct 2.5 % [facility] Promyelocyte pct 0.8 % [facility] Blood 06/11/2022 11:2 5 PM CDT 06/11/2022 11:39 PM CDT us Jeffrey Green MD LAB BLOOD ORDERABLES Final Result [facility] [place] [address] * (ABNORMAL) CBC with auto differential (06/11/2022 11:25 PM CDT) Pathologist [facility] WBC 13.5(H) 3.8 - 9.9 K/cumm [facility] Hgb 7.9(L) 13.0 - 17.5 g/dL [facility] Hct 23.7(L) 38.9 - 50.3 % [facility] Plt 188 150 - 400 K/cumm [facility] MPV 10.7 9.1 - 12.3 fL [facility] RBC 2.55(L) 4.30 - 5.80 M/cumm [facility] MCV 92.9 81.3 - 96.4 fL [facility] MCH 31.0 27.1 - 33.3 pg [facility] MCHC 33.3 32.3 - 35.7 g/dL [facility] RDW CV 13.3 11.1 - 14.9 % [facility] RDW SD 45.1 35.7 - 48.1 fL [facility] NRBC abs 0.02(H) 0.00 - 0.01 K/cumm [facility] Blood 06/11/2022 11:2 5 PM CDT 06/11/2022 11:35 PM CDT us Jeffrey Green MD LAB BLOOD ORDERABLES Final Result [facility] Department [place] [address] * (ABNORMAL) Blood gas, arterial (06/11/2022 11:25 PM CDT) Pathologist [facility] pH, Art 7.37 7.35 - 7.45 [facility] PCO2, Arterial 41 35 - 45 mmHg [facility] PO2, Arterial 91 83 - 108 mmHg [facility] HCO3 Art (Calculated) 24 20 - 30 mmol/L [facility] BE, art -1 mmol/L [facility] Comment: Interpretive Data No Reference Range Established Current Interpretive Data was last revised on 2017 O2 Sat Art (Measured) 97(H) 90 - 95 % [facility] Blood 06/11/2022 11:2 5 PM CDT 06/11/2022 11:31 PM CDT Marcelina Lo [facility] LAB BLOOD ORDERABLES Final Re sult Performing Organization Address [facility] Co de Phone Number [facility] [place] [address] * (ABNORMAL) Blood gas, arterial (06/11/2022 8:17 PM CDT) pH, Art 7.38 7.35 - 7.45 [facility] PCO2, Arterial 39 35 - 45 mmHg [facility] PO2, Arterial 111(H) 83 - 108 mmHg [facility] HCO3 Art (Calculated) 23 20 - 30 mmol/L [facility] BE, art -2 mmol/L [facility] Comment: Interpretive Data No Reference Range Established Current Interpretive Data was last revised on 2017 O2 Sat Art (Measured) 98(H) 90 - 95 % [facility] Blood 06/11/2022 8:17 PM CDT 06/11/2022 8:23 PM CDT Marcelina Lo [facility] [facility] LAB BLOOD ORDERABLES Final Re sult Performing Organization Address [facility] de Phone Number [facility] Department [place] [address] * Lactate, whole blood (06/11/2022 8:17 PM CDT) Lactate, bld 0.8 0.7 - 2.0 mmol/L [facility] Blood 06/11/2022 8:17 PM CDT 06/11/2022 8:23 PM CDT Marcelina Lo [facility] LAB BLOOD ORDERABLES Final Re sult Performing Organization Address [facility] Co de Phone Number [facility] Department [place] [address] * (ABNORMAL) eGFR (06/11/2022 8:12 PM CDT) Pathologist [facility] eGFR 24(L) 90 - 130 mL/min/1. 73 m2 [facility] Comment: Interpretive Data Reference Interval Normal ?>/= [...] Adams MD LAB BLOOD ORDERABLES Final Result [facility] Department [place] [address] * Magnesium (06/11/2022 8:12 PM CDT) [facility] Magnesium 2.5 1.4 - 2.5 mg/dL [facility] Blood 06/11/2022 8:12 PM CDT 06/11/2022 8:23 PM CDT Catherine Adams MD LAB BLOOD ORDERABLES Final Result [facility] Department [place] [address] * (ABNORMAL) Comprehensive metabolic panel (06/11/2022 8:12 PM CDT) Pathologist [facility] Sodium 135 135 - 145 mmol/L [facility] Potassium, pl 4.7 3.3 - 4.9 mmol/L [facility] Chloride 101 97 - 110 mmol/L [facility] CO2 23 22 - 32 mmol/L [facility] Anion gap 11 2 - 15 mmol/L [facility] BUN 28(H) 8 - 25 mg/dL [facility] Creatinine 3.01(H) 0.80 - 1.30 mg/dL [facility] Glucose 185 70 - 199 mg/dL [facility] Comment: Interpretive Data Fasting glucose [...] 2017. Calcium 8.1(L) 8.5 - 10.3 mg/dL [facility] Bilirubin, total 0.9 0.1 - 1.2 mg/dL [facility] Protein, pl 5.5(L) 6.5 - 8.5 g/dL [facility] Albumin 2.3(L) 3.5 - 5.0 g/dL [facility] Alk phos 211(H) 40 - 130 Units/L [facility] ALT 45 7 - 55 Units/L [facility] AST 95(H) 10 - 50 Units/L [facility] Blood 06/11/2022 8:12 PM CDT 06/11/2022 8:23 PM CDT Catherine Adams MD LAB BLOOD ORDERABLES Final Result Performing Organization Address [facility] de Phone Number [facility] Department [place] [address] * (ABNORMAL) Triglycerides (06/11/2022 8:12 PM CDT) Triglycerides 345(H) <=149 mg/dL [facility] Comment: Interpretive Data Ages < or [...] PM CDT 06/11/2022 8:23 PM CDT Narrative [facility] - 06/11/2022 8:53 PM CDT While on propofol infusion. Catherine Adams MD LAB BLOOD ORDERABLES Final Result Performing Organization Address [facility]/ZIP Co de Phone Number [place] [address] * Phosphorus (06/11/2022 8:12 PM CDT) Phosphorus, pl 4.4 2.3 - 4.5 mg/dL [facility] Blood 06/11/2022 8:12 PM CDT 06/11/2022 8:23 PM CDT Marcelina Lo [facility] [facility] LAB BLOOD ORDERABLES Final Re sult Performing Organization Address [facility] [place] [address] * Beta-hydroxybutyrate (06/11/2022 8:12 PM CDT) [facility] Beta-Hydroxybut yrate 0.3 0.0 - 0.5 mmol/L [facility] Blood 06/11/2022 8:12 PM CDT 06/11/2022 8:23 PM CDT Marcelina Lo [facility] [facility] LAB BLOOD ORDERABLES Edited R esult - Final Performing Organization Address [facility] Co de Phone Number [facility] [place] [address] * Lipase (06/11/2022 8:12 PM CDT) [facility] Lipase 15 10 - 99 Units/L [facility] Blood 06/11/2022 8:12 PM CDT 06/11/2022 8:23 PM CDT us Marcelina Lo [facility] [facility] LAB BLOOD ORDERABLES Final Re sult Performing Organization Address [facility] Co de Phone Number [facility] [place] [address] * POCT glucose (06/11/2022 8:07 PM CDT) Glucose, POC 169 70 - 199 mg/dL [facility] Blood 06/11/2022 8:07 PM CDT 06/11/2022 8:07 PM CDT us Catherine Adams MD LAB POCT ORDERABLES - DEVIC E Final Result [facility] Department [place] [address] * XR Chest 1 View (06/11/2022 4:07 PM CDT) Anatomical Region Laterality Modality Body, Chest N/A Computed Radiogr aphy 06/11/2022 5:24 PM CDT Impressions 06/11/2022 5:24 PM CDT Comparison made to examination of 06/11/2022 at 0543 hours Tip of the endotracheal tube projects approximately 5.5 cm above the boni. ??Nasogastric tube extends below the diaphragm with the tip excluded from the [id number]. ??Left internal jugular catheter projects at superior [...] diaphragm with the tip excluded from the [id number]. Left internal jugular catheter projects at superior [...] Potassium, bld 4.5 3.3 - 4.9 mmol/L [facility] Blood 06/11/2022 3:21 PM CDT 06/11/2022 3:29 PM CDT Marcelina Lo [facility] [facility] LAB BLOOD ORDERABLES Final Re sult Performing Organization Address [facility]/ZIP Co de Phone Number [facility] Department [place] [address] * Lactate, whole blood (06/11/2022 3:21 PM CDT) Lactate, bld 0.9 0.7 - 2.0 mmol/L [facility] Blood 06/11/2022 3:21 PM CDT 06/11/2022 3:29 PM CDT Marcelina Lo [facility] [facility] LAB BLOOD ORDERABLES Final Re sult Performing Organization Address City/[facility]/ZIP Co de Phone Number [facility] [place] [address] * (ABNORMAL) Blood gas, arterial (06/11/2022 3:21 PM CDT) pH, Art 7.39 7.35 - 7.45 [facility] PCO2, Arterial 39 35 - 45 mmHg [facility] PO2, Arterial 92 83 - 108 mmHg [facility] HCO3 Art (Calculated) 24 20 - 30 mmol/L [facility] BE, art -1 mmol/L [facility] Comment: Interpretive Data No Reference Range Established Current Interpretive Data was last revised on 2017 O2 Sat Art (Measured) 96(H) 90 - 95 % [facility] Blood 06/11/2022 3:21 PM CDT 06/11/2022 3:29 PM CDT Marcelina Lo [facility] LAB BLOOD ORDERABLES Final Re sult Performing Organization Address [facility] Co de Phone Number [place] [address] * aPTT (06/11/2022 3:21 PM CDT) aPTT 30 27 - 37 sec [facility] Comment: Interpretive Data Therapeutic heparin range: 60.0 - 94.0 seconds. Based on correlation with therapeutic heparin activity range of 0.3-0.7 Units/mL. Current interpretive data was last revised on 2020. Blood 06/11/2022 3:21 PM CDT 06/11/2022 3:30 PM CDT Result [facility] Catherine Adams MD LAB BLOOD ORDERABLES Final Result Performing Organization Address [facility] de Phone Number [place] [address] * Protime-INR (06/11/2022 3:21 PM CDT) PT 10.7 9.2 - 13.5 sec [facility] INR 1.0 0.9 - 1.2 [facility] Comment: Interpretive data Oral anticoagulant therapeutic ranges: Venous thromboembolism prophylaxis or treatment: 2.0-3.0 CARDIOLOGY Standard range: 2.0-3.0 High-intensity range: 2.5-3.5 Refer to indication-specific guidelines for appropriate target ranges for prosthetic heart valve replacement. Current interpretive data was last revised on 2019. Blood 06/11/2022 3:21 PM CDT 06/11/2022 3:30 PM CDT Result [facility] Catherine Adams MD LAB BLOOD ORDERABLES Final Result Performing Organization Address [facility] de Phone Number [facility] Department [place] [address] * (ABNORMAL) CBC without differential (06/11/2022 3:21 PM CDT) WBC 10.7(H) 3.8 - 9.9 K/cumm [facility] Hgb 7.6(L) 13.0 - 17.5 g/dL [facility] Hct 22.8(L) 38.9 - 50.3 % [facility] Plt 175 150 - 400 K/cumm [facility] MPV 10.7 9.1 - 12.3 fL [facility] RBC 2.45(L) 4.30 - 5.80 M/cumm [facility] MCV 93.1 81.3 - 96.4 fL [facility] MCH 31.0 27.1 - 33.3 pg [facility] MCHC 33.3 32.3 - 35.7 g/dL [facility] RDW CV 13.1 11.1 - 14.9 % [facility] RDW SD 44.3 35.7 - 48.1 fL [facility] NRBC abs 0.02(H) 0.00 - 0.01 K/cumm [facility] Blood 06/11/2022 3:21 PM CDT 06/11/2022 3:30 PM CDT Catherine Adams MD LAB BLOOD ORDERABLES Final Result Performing Organization Address [facility] Co de Phone Number [facility] Department [place] [address] * POCT glucose (06/11/2022 3:20 PM CDT) Glucose, POC 130 70 - 199 mg/dL [facility] Blood 06/11/2022 3:20 PM CDT 06/11/2022 3:20 PM CDT us Catherine Adams MD LAB POCT ORDERABLES - DEVIC E Final Result [facility] [place] [address] * CT Chest Abdomen Pelvis WO Contrast [...] CDT) pH, Art 7.38 7.35 - 7.45 [facility] PCO2, Arterial 37 35 - 45 mmHg [facility] PO2, Arterial 139(H) 83 - 108 mmHg [facility] HCO3 Art (Calculated) 22 20 - 30 mmol/L [facility] BE, art -3 mmol/L [facility] Comment: Interpretive Data No Reference Range Established Current Interpretive Data was last revised on 2017 O2 Sat Art (Measured) 98(H) 90 - 95 % [facility] Blood 06/11/2022 12:1 1 PM CDT 06/11/2022 12:23 PM CDT Catherine Adams MD LAB BLOOD ORDERABLES Final Result [facility] Department of Laboratories [place], [place] [id number] * POCT glucose (06/11/2022 12:10 PM CDT) Glucose, POC 142 70 - 199 mg/dL [facility] Blood 06/11/2022 12:1 0 PM CDT 06/11/2022 12:10 PM CDT us Catherine Adams MD LAB POCT ORDERABLES - DEVIC E Final Result [facility] Department [place] [address] * (ABNORMAL) Manual Differential (06/11/2022 8:48 AM CDT) Differential Manual [facility] Cells [facility] 120 [facility] Neutrophil abs 7.3(H) 1.7 - 6.5 K/cumm [facility] Imm gran abs 1.0(H) 0.0 - 0.1 K/cumm [facility] Lymphocyte abs 1.4 0.8 - 3.3 K/cumm [facility] Monocyte abs 0.4 0.2 - 0.8 K/cumm [facility] Eosinophil abs 0.3 0.0 - 0.5 K/cumm [facility] Neutrophil pct 70.0 % [facility] Comment: Interpretive Data Percent cell count reference ranges are not reported, since discordance with absolute values may lead to misinterpretation of CBC data. Current Interpretive Data was last revised on 2017. Lymphocyte pct 13.3 % [facility] Comment: Interpretive Data Percent cell count reference ranges are not reported, since discordance with absolute values may lead to misinterpretation of CBC data. Current Interpretive Data was last revised on 2017. Monocyte pct 4.2 % [facility] Comment: Interpretive Data Percent cell count reference ranges are not reported, since discordance with absolute values may lead to misinterpretation of CBC data. Current Interpretive Data was last revised on 2017. Eosinophil pct 3.3 % [facility] Comment: Interpretive Data Percent cell count reference ranges are not reported, since discordance with absolute values may lead to misinterpretation of CBC data. Current Interpretive Data was last revised on 2017. Metamyelocyte pct 6.7 % [facility] Myelocyte pct 2.5 % [facility] Blood 06/11/2022 8:48 AM CDT 06/11/2022 9:14 AM CDT Catherine Adams MD LAB BLOOD ORDERABLES Final Result Performing Organization Address City/[facility] Co de Phone Number [facility] [place] [address] * (ABNORMAL) eGFR (06/11/2022 8:48 AM CDT) eGFR 30(L) 90 - 130 mL/min/1. 73 m2 [facility] Comment: Interpretive Data Reference Interval Normal ?>/= [...] BLOOD ORDERABLES Final Result Performing Organization Address City/[facility] Co de Phone Number [facility] Billie [facility] [place] [address] * Lactate, whole blood (06/11/2022 8:48 AM CDT) [facility] Lactate, bld 1.1 0.7 - 2.0 mmol/L [facility] Blood 06/11/2022 8:48 AM CDT 06/11/2022 8:55 AM CDT Marcelina Lo [facility] [facility] LAB BLOOD ORDERABLES Final Re sult [facility] [place] [address] * Magnesium (06/11/2022 8:48 AM CDT) [facility] Magnesium 2.5 1.4 - 2.5 mg/dL [facility] Blood 06/11/2022 8:48 AM CDT 06/11/2022 9:02 AM CDT Marcelina Lo [facility] LAB BLOOD ORDERABLES Final Re sult [facility] [place] [address] * (ABNORMAL) Comprehensive metabolic panel (06/11/2022 8:48 AM CDT) [facility] Sodium 134(L) 135 - 145 mmol/L [facility] Potassium, pl 4.8 3.3 - 4.9 mmol/L [facility] Chloride 100 97 - 110 mmol/L [facility] CO2 23 22 - 32 mmol/L [facility] Anion gap 11 2 - 15 mmol/L [facility] BUN 22 8 - 25 mg/dL [facility] Creatinine 2.53(H) 0.80 - 1.30 mg/dL [facility] Glucose 175 70 - 199 mg/dL [facility] Comment: Interpretive Data Fasting glucose [...] 2017. Calcium 8.4(L) 8.5 - 10.3 mg/dL [facility] Bilirubin, total 0.9 0.1 - 1.2 mg/dL [facility] Protein, pl 6.0(L) 6.5 - 8.5 g/dL [facility] Albumin 2.8(L) 3.5 - 5.0 g/dL [facility] Alk phos 200(H) 40 - 130 Units/L [facility] ALT 47 7 - 55 Units/L [facility] AST 100(H) 10 - 50 Units/L [facility] Blood 06/11/2022 8:48 AM CDT 06/11/2022 9:02 AM CDT us Marcelina Lo [facility] LAB BLOOD ORDERABLES Final Re sult [facility] [place] [address] * (ABNORMAL) CBC with auto differential (06/11/2022 8:48 AM CDT) Pathologist [facility] WBC 10.4(H) 3.8 - 9.9 K/cumm [facility] Hgb 7.8(L) 13.0 - 17.5 g/dL [facility] Hct 23.4(L) 38.9 - 50.3 % [facility] Plt 191 150 - 400 K/cumm [facility] MPV 10.7 9.1 - 12.3 fL [facility] RBC 2.49(L) 4.30 - 5.80 M/cumm [facility] MCV 94.0 81.3 - 96.4 fL [facility] MCH 31.3 27.1 - 33.3 pg [facility] MCHC 33.3 32.3 - 35.7 g/dL [facility] RDW CV 13.2 11.1 - 14.9 % [facility] RDW SD 45.3 35.7 - 48.1 fL [facility] NRBC abs 0.03(H) 0.00 - 0.01 K/cumm [facility] Blood 06/11/2022 8:48 AM CDT 06/11/2022 9:02 AM CDT us Marcelina Lo [facility] [facility] LAB BLOOD ORDERABLES Final Re sult [facility] [place] [address] * POCT glucose (06/11/2022 8:46 AM CDT) Glucose, POC 169 70 - 199 mg/dL [facility] Blood 06/11/2022 8:46 AM CDT 06/11/2022 8:46 AM CDT us Catherine Adams MD LAB POCT ORDERABLES - DEVIC E Final Result Performing Organization Address City/[facility]/ZIP Co de Phone Number [facility] [place] [address] * (ABNORMAL) Blood gas, arterial (06/11/2022 6:34 AM CDT) pH, Art 7.43 7.35 - 7.45 [facility] PCO2, Arterial 34(L) 35 - 45 mmHg [facility] PO2, Arterial 87 83 - 108 mmHg [facility] HCO3 Art (Calculated) 24 20 - 30 mmol/L [facility] BE, art -1 mmol/L [facility] Comment: Interpretive Data No Reference Range Established Current Interpretive Data was last revised on 2017 O2 Sat Art (Measured) 97(H) 90 - 95 % [facility] Blood 06/11/2022 6:34 AM CDT 06/11/2022 6:44 AM CDT Catherine Adams MD LAB BLOOD ORDERABLES Final Result [facility] Department of Laboratories [place] [address] * XR Chest 1 View (06/11/2022 5:48 [...] CDT) pH, Art 7.42 7.35 - 7.45 [facility] PCO2, Arterial 36 35 - 45 mmHg [facility] PO2, Arterial 115(H) 83 - 108 mmHg [facility] HCO3 Art (Calculated) 24 20 - 30 mmol/L [facility] BE, art -1 mmol/L [facility] Comment: Interpretive Data No Reference Range Established Current Interpretive Data was last revised on 2017 O2 Sat Art (Measured) 98(H) 90 - 95 % [facility] Blood 06/11/2022 3:31 AM CDT 06/11/2022 4:00 AM CDT us Marcelina Lo [employer] [facility] [employer] LAB BLOOD ORDERABLES Final Re sult Performing Organization Address [facility] Co de Phone Number [facility] Department [place] [address] * Lactate, whole blood (06/11/2022 3:31 AM CDT) Lactate, bld 1.1 0.7 - 2.0 mmol/L [facility] Blood 06/11/2022 3:31 AM CDT 06/11/2022 4:00 AM CDT Marcelina Lo [facility] [facility] [facility]NALY[facility] LAB BLOOD ORDERABLES Final Re sult Performing Organization Address City/[facility]/ZIP Co de Phone Number [facility] [place] [address] * POCT glucose (06/11/2022 3:28 AM CDT) Glucose, POC 155 70 - 199 mg/dL [facility] Blood 06/11/2022 3:28 AM CDT 06/11/2022 3:28 AM CDT Catherine Adams MD LAB POCT ORDERABLES - DEVIC E Final Result Performing Organization Address City/[facility]/ZIP Co de Phone Number ALESSANDRA CARRION [facility] Department [place] [address] * Blood culture Blood Antecubital, right (06/11/2022 1:03 AM CDT) Report Final Report: No growth ALESSANDRA CARRION Blood (Antecubital, right) 06/11/2022 1:03 AM CDT [...] organism identification may be performed using the HearMeOutigene Gram-Positive Blood Culture Assay. This assay detects microbial DNA in positive blood culture broth via hybridization of target DNA to capture oligonucleotides on a microarray. This assay has been cleared by the [place] Food and Drug Administration and its performance characteristics have been verified by the [facility] Microbiology Laboratory. 5. ?For questions about this culture, contact the Microbiology Laboratory at [phone]. Interpretive data was last revised on 2020. Catherine Adams MD LAB MICROBIOLOGY - GENERAL ORDERABLES Final Result Performing Organization Address City/[facility]/ZIP Co de Phone Number ALESSANDRA CARRION [facility] Department [place] [address] * Blood culture Blood Antecubital, left (06/11/2022 [...] organism identification may be performed using the [employer] Gram-Positive Blood Culture Assay. This assay detects microbial DNA in positive blood culture broth via hybridization of target DNA to capture oligonucleotides on a microarray. This assay has been cleared by the [place] Food and Drug Administration and its performance characteristics have been verified by the [facility] Microbiology Laboratory. 5. ?For questions about this culture, contact the Microbiology Laboratory at [phone]. Interpretive data was last revised on 2020. Catherine Adams MD LAB MICROBIOLOGY - GENERAL ORDERABLES Final Result ALESSANDRA CARRION [facility] Department [place] [address] * POCT glucose (06/11/2022 12:49 AM CDT) Glucose, POC 165 70 - 199 mg/dL [facility] Blood 06/11/2022 12:4 9 AM CDT 06/11/2022 12:49 AM CDT Catherine Adams MD LAB POCT ORDERABLES - DEVIC E Final Result Performing Organization Address [facility] de Phone Number [facility] Department [place] [address] * POCT glucose (06/10/2022 10:28 PM CDT) Pathologist [facility] Glucose, POC 163 70 - 199 mg/dL [facility] Blood 06/10/2022 10:2 8 PM CDT 06/10/2022 10:28 PM CDT Catherine Adams MD LAB POCT ORDERABLES - DEVIC E Final Result Performing Organization Address [facility] de Phone Number [facility] Department [place] [address] * (ABNORMAL) eGFR (06/10/2022 10:27 PM CDT) [facility] eGFR 33(L) 90 - 130 mL/min/1. 73 m2 [facility] Comment: Interpretive Data Reference Interval [...] Adams MD LAB BLOOD ORDERABLES Final Result [facility] Department [place] [address] * (ABNORMAL) Manual Differential (06/10/2022 10:27 PM CDT) Differential Manual [facility] Neutrophil abs 13.0(H) 1.7 - 6.5 K/cumm [facility] Imm gran abs 0.6(H) 0.0 - 0.1 K/cumm [facility] Lymphocyte abs 1.3 0.8 - 3.3 K/cumm [facility] Monocyte abs 1.5(H) 0.2 - 0.8 K/cumm [facility] Eosinophil abs 0.7(H) 0.0 - 0.5 K/cumm [facility] Basophil abs 0.1 0.0 - 0.1 K/cumm [facility] Neutrophil pct 75.6 % [facility] Comment: Interpretive Data Percent cell count reference ranges are not reported, since discordance with absolute values may lead to misinterpretation of CBC data. Current Interpretive Data was last revised on 2017. Lymphocyte pct 7.6 % [facility] Comment: Interpretive Data Percent cell count reference ranges are not reported, since discordance with absolute values may lead to misinterpretation of CBC data. Current Interpretive Data was last revised on 2017. Monocyte pct 8.5 % [facility] Comment: Interpretive Data Percent cell count reference ranges are not reported, since discordance with absolute values may lead to misinterpretation of CBC data. Current Interpretive Data was last revised on 2017. Eosinophil pct 4.2 % [facility] Comment: Interpretive Data Percent cell count reference ranges are not reported, since discordance with absolute values may lead to misinterpretation of CBC data. Current Interpretive Data was last revised on 2017. Basophil pct 0.8 % [facility] Comment: Interpretive Data Percent cell count reference ranges are not reported, since discordance with absolute values may lead to misinterpretation of CBC data. Current Interpretive Data was last revised on 2017. Metamyelocyte pct 1.7 % [facility] Myelocyte pct 0.8 % [facility] Promyelocyte pct 0.8 % [facility] Blood 06/10/2022 10:2 7 PM CDT 06/10/2022 10:44 PM CDT Catherine Adams MD LAB BLOOD ORDERABLES Final Result [facility] Department [place] [address] * (ABNORMAL) Comprehensive metabolic panel (06/10/2022 10:27 PM CDT) Sodium 136 135 - 145 mmol/L [facility] Potassium, pl 4.9 3.3 - 4.9 mmol/L [facility] Chloride 99 97 - 110 mmol/L [facility] CO2 25 22 - 32 mmol/L [facility] Anion gap 12 2 - 15 mmol/L [facility] BUN 20 8 - 25 mg/dL [facility] Creatinine 2.33(H) 0.80 - 1.30 mg/dL [facility] Glucose 158 70 - 199 mg/dL [facility] Comment: Interpretive Data Fasting glucose [...] Calcium 8.6 8.5 - 10.3 mg/dL [facility] Bilirubin, total 1.0 0.1 - 1.2 mg/dL [facility] Protein, pl 6.2(L) 6.5 - 8.5 g/dL [facility] Albumin 3.1(L) 3.5 - 5.0 g/dL [facility] Alk phos 216(H) 40 - 130 Units/L [facility] ALT 49 7 - 55 Units/L [facility] AST 114(H) 10 - 50 Units/L [facility] Blood 06/10/2022 10:2 7 PM CDT 06/10/2022 10:37 PM CDT Catherine Adams MD LAB BLOOD ORDERABLES Final Result Performing Organization Address City/[facility]/ZIP Co de Phone Number [facility] [place] [address] * Magnesium (06/10/2022 10:27 PM CDT) Pathologist [facility] Magnesium 2.5 1.4 - 2.5 mg/dL [facility] Blood 06/10/2022 10:2 7 PM CDT 06/10/2022 10:37 PM CDT Catherine Adams MD LAB BLOOD ORDERABLES Final Result [facility] [place] [address] * Lactate, whole blood (06/10/2022 10:27 PM CDT) Lactate, bld 1.1 0.7 - 2.0 mmol/L [facility] Blood 06/10/2022 10:2 7 PM CDT 06/10/2022 10:36 PM CDT Marcelina Lo [facility] [facility] [facility] LAB BLOOD ORDERABLES Final Re sult Performing Organization Address [facility] Co de Phone Number [facility] Department [place] [address] * (ABNORMAL) Blood gas, arterial (06/10/2022 10:27 PM CDT) pH, Art 7.39 7.35 - 7.45 [facility] PCO2, Arterial 37 35 - 45 mmHg [facility] PO2, Arterial 98 83 - 108 mmHg [facility] HCO3 Art (Calculated) 23 20 - 30 mmol/L [facility] BE, art -2 mmol/L [facility] Comment: Interpretive Data No Reference Range Established Current Interpretive Data was last revised on 2017 O2 Sat Art (Measured) 97(H) 90 - 95 % [facility] Blood 06/10/2022 10:2 7 PM CDT 06/10/2022 10:36 PM CDT Marcelina Lo [facility] [facility]NA[facility] LAB BLOOD ORDERABLES Final Re sult Performing Organization Address [facility] Co de Phone Number [facility] Department [place] [address] * Phosphorus (06/10/2022 10:27 PM CDT) Phosphorus, pl 3.6 2.3 - 4.5 mg/dL [facility] Blood 06/10/2022 10:2 7 PM CDT 06/10/2022 10:37 PM CDT Marcelina Lo [facility] [facility] [facility]NA[facility] LAB BLOOD ORDERABLES Final Re sult Performing Organization Address City/[facility] Co de Phone Number [facility] [place] [address] * (ABNORMAL) Beta-hydroxybutyrate (06/10/2022 10:27 PM CDT) [facility] Beta-Hydroxybut yrate 1.1(H) 0.0 - 0.5 mmol/L [facility] Blood 06/10/2022 10:2 7 PM CDT 06/10/2022 10:37 PM CDT Marcelina Lo [facility] [facility]NALYST LAB BLOOD ORDERABLES Edited R esult - Final [facility] [place] [address] * Lipase (06/10/2022 10:27 PM CDT) [facility] Lipase 26 10 - 99 Units/L [facility] Blood 06/10/2022 10:2 7 PM CDT 06/10/2022 10:37 PM CDT Marcelina Lo [facility] [facility]NA[facility] LAB BLOOD ORDERABLES Final Re sult [facility] Department [place] [address] * (ABNORMAL) CBC with auto differential (06/10/2022 10:27 PM CDT) [facility] WBC 17.2(H) 3.8 - 9.9 K/cumm [facility] Hgb 9.0(L) 13.0 - 17.5 g/dL [facility] Hct 27.0(L) 38.9 - 50.3 % [facility] Plt 274 150 - 400 K/cumm [facility] MPV 10.7 9.1 - 12.3 fL [facility] RBC 2.88(L) 4.30 - 5.80 M/cumm [facility] MCV 93.8 81.3 - 96.4 fL [facility] MCH 31.3 27.1 - 33.3 pg [facility] MCHC 33.3 32.3 - 35.7 g/dL [facility] RDW CV 13.5 11.1 - 14.9 % [facility] RDW SD 46.1 35.7 - 48.1 fL [facility] NRBC abs 0.08(H) 0.00 - 0.01 K/cumm [facility] Blood 06/10/2022 10:2 7 PM CDT 06/10/2022 10:37 PM CDT us Marcelina Lo [facility] [facility] LAB BLOOD ORDERABLES Final Re sult [facility] Department [place] [address] * POCT glucose (06/10/2022 5:13 PM CDT) Glucose, POC 106 70 - 199 mg/dL [facility] Blood 06/10/2022 5:13 PM CDT 06/10/2022 5:13 PM CDT us Catherine Adams MD LAB POCT ORDERABLES - DEVIC E Final Result Performing Organization Address City/[facility]/ZIP Co de Phone Number [facility] Department [place] [address] * (ABNORMAL) Triglycerides (06/10/2022 5:13 PM CDT) Triglycerides 401(H) <=149 mg/dL [facility] Comment: Interpretive Data Ages < [...] PM CDT 06/10/2022 5:39 PM CDT Narrative [facility] - 06/10/2022 6:07 PM CDT While on propofol infusion. us Catherine Adams MD LAB BLOOD ORDERABLES Final Result Performing Organization Address [facility] de Phone Number [facility] Department [place] [address] * (ABNORMAL) Blood gas, arterial (06/10/2022 2:24 PM CDT) pH, Art 7.38 7.35 - 7.45 [facility] PCO2, Arterial 39 35 - 45 mmHg [facility] PO2, Arterial 66(L) 83 - 108 mmHg [facility] HCO3 Art (Calculated) 24 20 - 30 mmol/L [facility] BE, art -2 mmol/L [facility] Comment: Interpretive Data No Reference Range Established Current Interpretive Data was last revised on 2017 O2 Sat Art (Measured) 91 90 - 95 % [facility] Blood 06/10/2022 2:24 PM CDT 06/10/2022 2:31 PM CDT us Marcelina Lo NP LAB BLOOD ORDERABLES Final Re sult Performing Organization Address [facility] de Phone Number [facility] Department [place] [address] * POCT glucose (06/10/2022 1:13 PM CDT) [facility] Glucose, POC 189 70 - 199 mg/dL [facility] Blood 06/10/2022 1:13 PM CDT 06/10/2022 1:13 PM CDT us Catherine Adams MD LAB POCT ORDERABLES - DEVIC E Final Result Performing Organization Address [facility]/ZIP Co de Phone Number [facility] Department [place] [address] * Lactate, whole blood (06/10/2022 1:12 PM CDT) [facility] Lactate, bld 1.1 0.7 - 2.0 mmol/L [facility] Blood 06/10/2022 1:12 PM CDT 06/10/2022 1:25 PM CDT us Marcelina Lo [facility] [facility] LAB BLOOD ORDERABLES Final Re sult Performing Organization Address [facility] Co de Phone Number [facility] [place] [address] * (ABNORMAL) Blood gas, arterial (06/10/2022 1:12 PM CDT) [facility] pH, Art 7.40 7.35 - 7.45 [facility] PCO2, Arterial 36 35 - 45 mmHg [facility] PO2, Arterial 67(L) 83 - 108 mmHg [facility] HCO3 Art (Calculated) 23 20 - 30 mmol/L [facility] BE, art -2 mmol/L [facility] Comment: Interpretive Data No Reference Range Established Current Interpretive Data was last revised on 2017 O2 Sat Art (Measured) 92 90 - 95 % [facility] Blood 06/10/2022 1:12 PM CDT 06/10/2022 1:25 PM CDT us Marcelina Lo [facility] [facility]NA[facility] LAB BLOOD ORDERABLES Final Re sult ALESSANDRA AVILA [facility] Department [place] [address] * REMOVE VAD - DIFFERENT SESSION (06/10/2022 [...] pressure. 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 ??Impella is currently weaned to P2 and ready for removal. ?? Pre close system had been used with two 6 Polish pro style placed in orthogonal fashion prior [...] x2. 2. History of non ST elevation [place] with mild LV dysfunction status post recent [...] CDT) ACT 183(H) 123 - 168 sec [facility] Blood 06/10/2022 9:56 AM CDT 06/10/2022 9:56 AM CDT Catherine Adams MD LAB POCT ORDERABLES - DEVIC E Final Result Performing Organization Address City/[facility]/ZIP Co de Phone Number [facility] [place] [address] * (ABNORMAL) POCT Activated clotting time, low range (06/10/2022 8:08 AM CDT) ACT 214(H) 123 - 168 sec [facility] Blood 06/10/2022 8:08 AM CDT 06/10/2022 8:08 AM CDT Catherine Adams MD LAB POCT ORDERABLES - DEVIC E Final Result Performing Organization Address City/[facility]/ZIP Co de Phone Number [facility] Department [place] [address] * POCT glucose (06/10/2022 7:54 AM CDT) Glucose, POC 138 70 - 199 mg/dL [facility] Blood 06/10/2022 7:54 AM CDT 06/10/2022 7:54 AM CDT Catherine Adams MD LAB POCT ORDERABLES - DEVIC E Final Result [facility] Department [place] [address] * (ABNORMAL) eGFR (06/10/2022 7:52 AM CDT) eGFR 31(L) 90 - 130 mL/min/1. 73 m2 [facility] Comment: Interpretive Data Reference Interval [...] Adams MD LAB BLOOD ORDERABLES Final Result [facility] Department [place] [address] * (ABNORMAL) Differential, auto (06/10/2022 7:52 AM CDT) Neutrophil abs 6.7(H) 1.7 - 6.5 K/cumm [facility] Imm gran abs 1.0(H) 0.0 - 0.1 K/cumm [facility] Lymphocyte abs 1.4 0.8 - 3.3 K/cumm [facility] Monocyte abs 0.9(H) 0.2 - 0.8 K/cumm [facility] Eosinophil abs 0.3 0.0 - 0.5 K/cumm [facility] Basophil abs 0.0 0.0 - 0.1 K/cumm [facility] Neutrophil pct 65.5 % [facility] Comment: Confirmed by smear review Interpretive Data Percent cell count reference ranges are not reported, since discordance with absolute values may lead to misinterpretation of CBC data. Current Interpretive Data was last revised on 2017. Imm gran pct 9.4 % [facility] Comment: Interpretive Data Percent cell count reference ranges are not reported, since discordance with absolute values may lead to misinterpretation of CBC data. Current Interpretive Data was last revised on 2017. Lymphocyte pct 13.4 % [facility] Comment: Interpretive Data Percent cell count reference ranges are not reported, since discordance with absolute values may lead to misinterpretation of CBC data. Current Interpretive Data was last revised on 2017. Monocyte pct 8.8 % [facility] Comment: Interpretive Data Percent cell count reference ranges are not reported, since discordance with absolute values may lead to misinterpretation of CBC data. Current Interpretive Data was last revised on 2017. Eosinophil pct 2.6 % [facility] Comment: Interpretive Data Percent cell count reference ranges are not reported, since discordance with absolute values may lead to misinterpretation of CBC data. Current Interpretive Data was last revised on 2017. Basophil pct 0.3 % [facility] Comment: Interpretive Data Percent cell count reference ranges are not reported, since discordance with absolute values may lead to misinterpretation of CBC data. Current Interpretive Data was last revised on 2017. Blood 06/10/2022 7:52 AM CDT 06/10/2022 8:07 AM CDT us Catherine Adams MD LAB BLOOD ORDERABLES Final Result Performing Organization Address [facility]/ZIP Co de Phone Number [facility] [place] [address] * Lactate, whole blood (06/10/2022 7:52 AM CDT) Lactate, bld 1.2 0.7 - 2.0 mmol/L [facility] Blood 06/10/2022 7:52 AM CDT 06/10/2022 8:02 AM CDT us Marcelina Lo NP LAB BLOOD ORDERABLES Final Re sult Performing Organization Address [facility] Co de Phone Number [facility] [place] [address] * (ABNORMAL) Blood gas, arterial (06/10/2022 7:52 AM CDT) pH, Art 7.46(H) 7.35 - 7.45 [facility] PCO2, Arterial 34(L) 35 - 45 mmHg [facility] PO2, Arterial 99 83 - 108 mmHg [facility] HCO3 Art (Calculated) 25 20 - 30 mmol/L [facility] BE, art 1 mmol/L [facility] Comment: Interpretive Data No Reference Range Established Current Interpretive Data was last revised on 2017 O2 Sat Art (Measured) 98(H) 90 - 95 % [facility] Blood 06/10/2022 7:52 AM CDT 06/10/2022 8:02 AM CDT Marcelina Lo [facility] [facility] ANALYST LAB BLOOD ORDERABLES Final Re sult Performing Organization Address City/[facility] Co de Phone Number [facility] [place] [address] * Magnesium (06/10/2022 7:52 AM CDT) Pathologist [facility] Magnesium 2.4 1.4 - 2.5 mg/dL [facility] Blood 06/10/2022 7:52 AM CDT 06/10/2022 8:07 AM CDT Marcelina Lo [facility] [facility] ANALY[facility] LAB BLOOD ORDERABLES Final Re sult Performing Organization Address [facility] de Phone Number [facility] Department [place] [address] * (ABNORMAL) Comprehensive metabolic panel (06/10/2022 7:52 AM CDT) Pathologist [facility] Sodium 135 135 - 145 mmol/L [facility] Potassium, pl 4.3 3.3 - 4.9 mmol/L [facility] Chloride 100 97 - 110 mmol/L [facility] CO2 26 22 - 32 mmol/L [facility] Anion gap 9 2 - 15 mmol/L [facility] BUN 20 8 - 25 mg/dL [facility] Creatinine 2.44(H) 0.80 - 1.30 mg/dL [facility] Glucose 138 70 - 199 mg/dL [facility] Comment: Interpretive Data Fasting glucose [...] 2017. Calcium 8.4(L) 8.5 - 10.3 mg/dL [facility] Bilirubin, total 0.8 0.1 - 1.2 mg/dL [facility] Protein, pl 6.2(L) 6.5 - 8.5 g/dL [facility] Albumin 3.0(L) 3.5 - 5.0 g/dL [facility] Alk phos 169(H) 40 - 130 Units/L [facility] ALT 45 7 - 55 Units/L [facility] AST 117(H) 10 - 50 Units/L [facility] Blood 06/10/2022 7:52 AM CDT 06/10/2022 8:07 AM CDT us Marcelina Lo NP LAB BLOOD ORDERABLES Final Re sult [facility] [place] [address] * (ABNORMAL) CBC with auto differential (06/10/2022 7:52 AM CDT) WBC 10.2(H) 3.8 - 9.9 K/cumm [facility] Hgb 8.3(L) 13.0 - 17.5 g/dL [facility] Hct 25.1(L) 38.9 - 50.3 % [facility] Plt 201 150 - 400 K/cumm [facility] MPV 10.9 9.1 - 12.3 fL [facility] RBC 2.70(L) 4.30 - 5.80 M/cumm [facility] MCV 93.0 81.3 - 96.4 fL [facility] MCH 30.7 27.1 - 33.3 pg [facility] MCHC 33.1 32.3 - 35.7 g/dL [facility] RDW CV 13.3 11.1 - 14.9 % [facility] RDW SD 45.1 35.7 - 48.1 fL [facility] NRBC abs 0.02(H) 0.00 - 0.01 K/cumm [facility] Blood 06/10/2022 7:52 AM CDT 06/10/2022 8:07 AM CDT Marcelina Lo [employer] ANALYST LAB BLOOD ORDERABLES Final Re sult Performing Organization Address [facility] Co de Phone Number [facility] [place] [address] * Oxyhemoglobin, central venous (06/10/2022 5:36 AM CDT) Oxyhemoglobin, CV 70.2 % [facility] Comment: Interpretive Data No reference range established. Current interpretive data was last revised 2019. Blood 06/10/2022 5:36 AM CDT 06/10/2022 5:58 AM CDT Lavern Morrison MD LAB BLOOD ORDERABLES F inal Result Performing Organization Address [facility] Co de Phone Number [place] [address] * Lactate, whole blood (06/10/2022 5:36 AM CDT) Lactate, bld 1.4 0.7 - 2.0 mmol/L [facility] Blood 06/10/2022 5:36 AM CDT 06/10/2022 5:58 AM CDT Marcelina Lo [employer] [facility] [employer]NALYST LAB BLOOD ORDERABLES Final Re sult Performing Organization Address [facility] Co de Phone Number [place] [address] * XR Chest 1 View (06/10/2022 5:32 AM CDT) Anatomical Region Laterality Modality Body, Chest N/A Computed Radiogr aphy 06/10/2022 11:3 8 AM CDT Impressions 06/10/2022 11:42 AM CDT Comparison is made with prior radiograph dated 06/09/2022 7:57 AM. ??Left internal jugular central venous catheter terminates in the proximal superior vena cava. Feeding tube courses below diaphragm with tip not seen. Inferior approach [place]-Liv catheter has tip projecting over the main [...] agrees with it. Electronically signed by: Ramirez Blkae M.D. Narrative 06/10/2022 11:42 AM CDT EXAMINATION: 1 view chest radiograph Procedure Note Ramirez Blake MD - 06/10/2022 EXAMINATION: 1 view chest radiograph IMPRESSION: Comparison is made with prior radiograph dated 06/09/2022 7:57 AM. Left internal jugular central venous catheter terminates in the proximal superior vena cava. Feeding tube courses below diaphragm with tip not seen. Inferior approach [place]-Liv catheter has tip projecting over the main [...] CDT) pH, Art 7.45 7.35 - 7.45 [facility] PCO2, Arterial 36 35 - 45 mmHg [facility] PO2, Arterial 92 83 - 108 mmHg [facility] HCO3 Art (Calculated) 26 20 - 30 mmol/L [facility] BE, art 1 mmol/L [facility] Comment: Interpretive Data No Reference Range Established Current Interpretive Data was last revised on 2017 O2 Sat Art (Measured) 97(H) 90 - 95 % [facility] Blood 06/10/2022 3:45 AM CDT 06/10/2022 3:52 AM CDT us Marcelina Lo NP LAB BLOOD ORDERABLES Final Re sult Performing Organization Address [facility] Co de Phone Number [facility] Department [place] [address] * POCT glucose (06/10/2022 3:42 AM CDT) Glucose, POC 150 70 - 199 mg/dL [facility] Blood 06/10/2022 3:42 AM CDT 06/10/2022 3:42 AM CDT us Catherine Adams MD LAB POCT ORDERABLES - DEVIC E Final Result Performing Organization Address [facility] Co de Phone Number [facility] Department [place] [address] * Lactate, whole blood (06/10/2022 12:26 AM CDT) Lactate, bld 1.4 0.7 - 2.0 mmol/L [facility] Blood 06/10/2022 12:2 6 AM CDT 06/10/2022 12:33 AM CDT us Catherine Adams MD LAB BLOOD ORDERABLES Final Result [facility]ESSANDRA [facility] [place] [address] * (ABNORMAL) Blood gas, arterial (06/10/2022 12:26 AM CDT) pH, Art 7.45 7.35 - 7.45 [facility] PCO2, Arterial 36 35 - 45 mmHg [facility] PO2, Arterial 102 83 - 108 mmHg [facility] HCO3 Art (Calculated) 26 20 - 30 mmol/L [facility] BE, art 2 mmol/L [facility] Comment: Interpretive Data No Reference Range Established Current Interpretive Data was last revised on 2017 O2 Sat Art (Measured) 96(H) 90 - 95 % [facility] Blood 06/10/2022 12:2 6 AM CDT 06/10/2022 12:33 AM CDT us Marcelina Lo NP LAB BLOOD ORDERABLES Final Re sult Performing Organization Address [facility] Co de Phone Number [facility] Department [place] [address] * POCT glucose (06/10/2022 12:21 AM CDT) Glucose, POC 157 70 - 199 mg/dL [facility] Blood 06/10/2022 12:2 1 AM CDT 06/10/2022 12:21 AM CDT us Catherine Adams MD LAB POCT ORDERABLES - DEVIC E Final Result Performing Organization Address [facility] Co de Phone Number [facility] [place] [address] * (ABNORMAL) Blood gas, arterial (06/09/2022 10:28 PM CDT) pH, Art 7.43 7.35 - 7.45 [facility] PCO2, Arterial 38 35 - 45 mmHg [facility] PO2, Arterial 93 83 - 108 mmHg [facility] HCO3 Art (Calculated) 26 20 - 30 mmol/L [facility] BE, art 1 mmol/L [facility] Comment: Interpretive Data No Reference Range Established Current Interpretive Data was last revised on 2017 O2 Sat Art (Measured) 97(H) 90 - 95 % [facility] Blood 06/09/2022 10:2 8 PM CDT 06/09/2022 10:38 PM CDT Catherine Adams MD LAB BLOOD ORDERABLES Final Result Performing Organization Address [facility]/ZIP Co de Phone Number [facility] Department [place] [address] * POCT glucose (06/09/2022 8:40 PM CDT) Pathologist [facility] Glucose, POC 182 70 - 199 mg/dL [facility] Blood 06/09/2022 8:40 PM CDT 06/09/2022 8:40 PM CDT Catherine Adams MD LAB POCT ORDERABLES - DEVIC E Final Result Performing Organization Address [facility] Co de Phone Number [facility] Department [place] [address] * (ABNORMAL) eGFR (06/09/2022 8:33 PM CDT) eGFR 26(L) 90 - 130 mL/min/1. 73 m2 [facility] Comment: Interpretive Data Reference Interval [...] Adams MD LAB BLOOD ORDERABLES Final Result [facility] [place] [address] * (ABNORMAL) Differential, auto (06/09/2022 8:33 PM CDT) Neutrophil abs 5.8 1.7 - 6.5 K/cumm [facility] Imm gran abs 0.7(H) 0.0 - 0.1 K/cumm [facility] Lymphocyte abs 1.2 0.8 - 3.3 K/cumm [facility] Monocyte abs 1.0(H) 0.2 - 0.8 K/cumm [facility] Eosinophil abs 0.3 0.0 - 0.5 K/cumm [facility] Basophil abs 0.0 0.0 - 0.1 K/cumm [facility] Neutrophil pct 64.3 % [facility] Comment: Interpretive Data Percent cell count reference ranges are not reported, since discordance with absolute values may lead to misinterpretation of CBC data. Current Interpretive Data was last revised on 2017. Imm gran pct 7.7 % [facility] Comment: Interpretive Data Percent cell count reference ranges are not reported, since discordance with absolute values may lead to misinterpretation of CBC data. Current Interpretive Data was last revised on 2017. Lymphocyte pct 13.4 % [facility] Comment: Interpretive Data Percent cell count reference ranges are not reported, since discordance with absolute values may lead to misinterpretation of CBC data. Current Interpretive Data was last revised on 2017. Monocyte pct 11.5 % [facility] Comment: Interpretive Data Percent cell count reference ranges are not reported, since discordance with absolute values may lead to misinterpretation of CBC data. Current Interpretive Data was last revised on 2017. Eosinophil pct 2.8 % [facility] Comment: Interpretive Data Percent cell count reference ranges are not reported, since discordance with absolute values may lead to misinterpretation of CBC data. Current Interpretive Data was last revised on 2017. Basophil pct 0.3 % [facility] Comment: Interpretive Data Percent cell count reference ranges are not reported, since discordance with absolute values may lead to misinterpretation of CBC data. Current Interpretive Data was last revised on 2017. Blood 06/09/2022 8:33 PM CDT 06/09/2022 9:07 PM CDT Catherine Adams MD LAB BLOOD ORDERABLES Final Result [facility] Department [place] [address] * (ABNORMAL) Blood gas, arterial (06/09/2022 8:33 PM CDT) pH, Art 7.41 7.35 - 7.45 [facility] PCO2, Arterial 39 35 - 45 mmHg [facility] PO2, Arterial 92 83 - 108 mmHg [facility] HCO3 Art (Calculated) 25 20 - 30 mmol/L [facility] BE, art 0 mmol/L [facility] Comment: Interpretive Data No Reference Range Established Current Interpretive Data was last revised on 2017 O2 Sat Art (Measured) 96(H) 90 - 95 % [facility] Blood 06/09/2022 8:33 PM CDT 06/09/2022 8:58 PM CDT Marcelina Lo [employer] [facility] [employer]NALYST LAB BLOOD ORDERABLES Final Re sult Performing Organization Address [facility] de Phone Number [facility] [place] [address] * (ABNORMAL) aPTT (06/09/2022 8:33 PM CDT) aPTT 92(H) 27 - 37 sec [facility] Comment: Interpretive Data Therapeutic heparin range: 60.0 - 94.0 seconds. Based on correlation with therapeutic heparin activity range of 0.3-0.7 Units/mL. Current interpretive data was last revised on 2020. Blood 06/09/2022 8:33 PM CDT 06/09/2022 9:01 PM CDT Narrative [facility] - 06/09/2022 9:28 PM CDT Draw STAT PTT 6 hrs after initiation of heparin infusion, draw STAT PTT 6 hours after each dose/rate change, and every 6 hours until 2 consecutive PTTs are within therapeutic range. Once two consecutive PTT's are therapeutic (60-94.9 seconds), then draw PTT every AM until heparin is discontinued. Result [facility] Conrad Weston Chi, MD LAB BLOOD ORDERABLES Ann Marie l Result Performing Organization Address [facility] Co de Phone Number [facility] Department [place] [address] * Phosphorus (06/09/2022 8:33 PM CDT) Phosphorus, pl 3.2 2.3 - 4.5 mg/dL [facility] Blood 06/09/2022 8:33 PM CDT 06/09/2022 9:07 PM CDT Marcelina Lo [employer] [facility] [employer]NALYST LAB BLOOD ORDERABLES Final Re sult Performing Organization Address [facility] Co de Phone Number [facility] [place] [address] * Beta-hydroxybutyrate (06/09/2022 8:33 PM CDT) Beta-Hydroxybut yrate 0.3 0.0 - 0.5 mmol/L [facility] Blood 06/09/2022 8:33 PM CDT 06/09/2022 9:07 PM CDT Marcelina Lo [employer] [facility] [facility]NALYST LAB BLOOD ORDERABLES Edited R esult - Final Performing Organization Address [facility] Co de Phone Number [facility] [place] [address] * Haptoglobin (06/09/2022 8:33 PM CDT) Haptoglobin 153.0 30.0 - 200.0 mg/dL [facility] Blood 06/09/2022 8:33 PM CDT 06/09/2022 9:07 PM CDT Catherine Adams MD LAB BLOOD ORDERABLES Final Result Performing Organization Address [facility] Co de Phone Number [facility] Department [place] [address] * Lipase (06/09/2022 8:33 PM CDT) Lipase 21 10 - 99 Units/L [facility] Blood 06/09/2022 8:33 PM CDT 06/09/2022 9:07 PM CDT Marcelina Lo [employer] [facility] [facility]NALYST LAB BLOOD ORDERABLES Final Re sult Performing Organization Address [facility]/ZIP Co de Phone Number [facility] Department [place] [address] * (ABNORMAL) Lactate dehydrogenase (LD) (06/09/2022 8:33 PM CDT) [facility] Lactate dehydrogenase (LDH) 528(H) 100 - 250 Units/L [facility] Blood 06/09/2022 8:33 PM CDT 06/09/2022 9:07 PM CDT Catherine Adams MD LAB BLOOD ORDERABLES Final Result [facility] Department [place] [address] * Magnesium (06/09/2022 8:33 PM CDT) [facility] Magnesium 2.4 1.4 - 2.5 mg/dL [facility] Blood 06/09/2022 8:33 PM CDT 06/09/2022 9:07 PM CDT us Marcelina Lo NP LAB BLOOD ORDERABLES Final Re sult Performing Organization Address City/[facility]/ZIP Co de Phone Number [facility] Department [place] [address] * (ABNORMAL) Comprehensive metabolic panel (06/09/2022 8:33 PM CDT) [facility] Sodium 134(L) 135 - 145 mmol/L [facility] Potassium, pl 4.4 3.3 - 4.9 mmol/L [facility] Chloride 99 97 - 110 mmol/L [facility] CO2 25 22 - 32 mmol/L [facility] Anion gap 10 2 - 15 mmol/L [facility] BUN 24 8 - 25 mg/dL [facility] Creatinine 2.82(H) 0.80 - 1.30 mg/dL [facility] Glucose 173 70 - 199 mg/dL [facility] Comment: Interpretive Data Fasting glucose [...] 2017. Calcium 8.3(L) 8.5 - 10.3 mg/dL [facility] Bilirubin, total 0.8 0.1 - 1.2 mg/dL [facility] Protein, pl 6.1(L) 6.5 - 8.5 g/dL [facility] Albumin 2.8(L) 3.5 - 5.0 g/dL [facility] Alk phos 168(H) 40 - 130 Units/L [facility] ALT 45 7 - 55 Units/L [facility] AST 129(H) 10 - 50 Units/L [facility] Blood 06/09/2022 8:33 PM CDT 06/09/2022 9:07 PM CDT us Marcelina Lo [facility] [facility] [facility]NALYST LAB BLOOD ORDERABLES Final Re sult [facility] [place] [address] * (ABNORMAL) CBC with auto differential (06/09/2022 8:33 PM CDT) WBC 9.1 3.8 - 9.9 K/cumm [facility] Hgb 8.2(L) 13.0 - 17.5 g/dL [facility] Hct 24.8(L) 38.9 - 50.3 % [facility] Plt 208 150 - 400 K/cumm [facility] MPV 11.0 9.1 - 12.3 fL [facility] RBC 2.66(L) 4.30 - 5.80 M/cumm [facility] MCV 93.2 81.3 - 96.4 fL [facility] MCH 30.8 27.1 - 33.3 pg [facility] MCHC 33.1 32.3 - 35.7 g/dL [facility] RDW CV 13.2 11.1 - 14.9 % [facility] RDW SD 45.5 35.7 - 48.1 fL [facility] NRBC abs 0.00 0.00 - 0.01 K/cumm [facility] Blood 06/09/2022 8:33 PM CDT 06/09/2022 9:07 PM CDT Marcelina Lo [facility] [facility] [facility]NALYST LAB BLOOD ORDERABLES Final Re sult Performing Organization Address [facility] [place] [address] * Oxyhemoglobin, pulmonary artery (06/09/2022 3:52 PM CDT) Oxyhemoglobin, PA 66.5 % [facility] Comment: Interpretive Data No reference range established. Current interpretive data was last revised 2019. Blood 06/09/2022 3:52 PM CDT 06/09/2022 4:01 PM CDT Marcelina Lo [facility] [facility] [facility] ANALYST LAB BLOOD ORDERABLES Final Re sult Performing Organization Address [facility] Co de Phone Number [place] [address] * Lactate, whole blood (06/09/2022 3:52 PM CDT) Lactate, bld 1.4 0.7 - 2.0 mmol/L [facility] Blood 06/09/2022 3:52 PM CDT 06/09/2022 4:01 PM CDT Marcelina Lo [facility] [facility]NALYST LAB BLOOD ORDERABLES Final Re sult Performing Organization Address City/[facility] Co de Phone Number [facility] [place] [address] * (ABNORMAL) Hemoglobin total, pulmonary artery (06/09/2022 3:52 PM CDT) Hemoglobin total, PA 8.9(L) 13.0 - 17.5 g/dL [facility] Blood 06/09/2022 3:52 PM CDT 06/09/2022 4:01 PM CDT Marcelina Lo NP LAB BLOOD ORDERABLES Final Re sult Performing Organization Address [facility]/ZIP Co de Phone Number [facility] [place] [address] * (ABNORMAL) Blood gas, arterial (06/09/2022 3:52 PM CDT) pH, Art 7.38 7.35 - 7.45 [facility] PCO2, Arterial 45 35 - 45 mmHg [facility] PO2, Arterial 80(L) 83 - 108 mmHg [facility] HCO3 Art (Calculated) 27 20 - 30 mmol/L [facility] BE, art 1 mmol/L [facility] Comment: Interpretive Data No Reference Range Established Current Interpretive Data was last revised on 2017 O2 Sat Art (Measured) 94 90 - 95 % [facility] Blood 06/09/2022 3:52 PM CDT 06/09/2022 4:01 PM CDT Catherine Adams MD LAB BLOOD ORDERABLES Final Result [facility] [place] [address] * POCT glucose (06/09/2022 3:50 PM CDT) Glucose, POC 136 70 - 199 mg/dL [facility] Blood 06/09/2022 3:50 PM CDT 06/09/2022 3:50 PM CDT Catherine Adams MD LAB POCT ORDERABLES - DEVIC E Final Result Performing Organization Address [facility] de Phone Number [facility] [place] [address] * Lactate, whole blood (06/09/2022 11:59 AM CDT) Lactate, bld 1.3 0.7 - 2.0 mmol/L [facility] Blood 06/09/2022 11:5 9 AM CDT 06/09/2022 12:10 PM CDT Marcelina Lo [employer] [facility] [facility] ANALYST LAB BLOOD ORDERABLES Final Re sult Performing Organization Address [facility] de Phone Number [facility] [place] [address] * (ABNORMAL) Hemoglobin total, pulmonary artery (06/09/2022 11:59 AM CDT) Hemoglobin total, PA 10.2(L) 13.0 - 17.5 g/dL [facility] Blood 06/09/2022 11:5 9 AM CDT 06/09/2022 12:10 PM CDT Marcelina Lo [facility] [facility] ANALYST LAB BLOOD ORDERABLES Final Re sult Performing Organization Address [facility] de Phone Number [facility] [place] [address] * Oxyhemoglobin, pulmonary artery (06/09/2022 11:59 AM CDT) Oxyhemoglobin, PA 65.2 % [facility] Comment: Interpretive Data No reference range established. Current interpretive data was last revised 2019. Blood 06/09/2022 11:5 9 AM CDT 06/09/2022 12:10 PM CDT Marcelina Lo NP LAB BLOOD ORDERABLES Final Re sult Performing Organization Address [facility] Co de Phone Number [facility] [place] [address] * (ABNORMAL) aPTT (06/09/2022 11:59 AM CDT) aPTT 79(H) 27 - 37 sec [facility] Comment: Interpretive Data Therapeutic heparin range: 60.0 - 94.0 seconds. Based on correlation with therapeutic heparin activity range of 0.3-0.7 Units/mL. Current interpretive data was last revised on 2020. Blood 06/09/2022 11:5 9 AM CDT 06/09/2022 12:14 PM CDT Narrative [facility] - 06/09/2022 12:40 PM CDT [...] Ann Marie l Result Performing Organization Address [facility] Co de Phone Number [facility] [place] [address] * POCT glucose (06/09/2022 11:58 AM CDT) Glucose, POC 171 70 - 199 mg/dL [facility] Blood 06/09/2022 11:5 8 AM CDT 06/09/2022 11:58 AM CDT Catherine Adams MD LAB POCT ORDERABLES - DEVIC E Final Result Performing Organization Address [facility] Co de Phone Number [facility] [place] [address] * XR Chest 1 View (06/09/2022 8:57 [...] diaphragm with tip not seen. Inferior approach [place]-Liv catheter has been retracted with the tip projecting over the main pulmonary artery. An Impella device is in place, unchanged. There is mild cardiomegaly, unchanged. There is moderate asymmetric left lung and right upper lobe pulmonary edema. Likely small left pleural effusion although the left costophrenic angle is partially off the [id number]. No right pleural effusion or pneumothorax. Second exam ??06/09/2022 7:57 AM The [place]-Liv catheter has been slightly advanced with tip [...] diaphragm with tip not seen. Inferior approach [place]-Liv catheter has been retracted with the tip projecting over the main pulmonary artery. An Impella device is in place, unchanged. There is mild cardiomegaly, unchanged. There is moderate asymmetric left lung and right upper lobe pulmonary edema. Likely small left pleural effusion although the left costophrenic angle is partially off the [id number]. No right pleural effusion or pneumothorax. Second exam 06/09/2022 7:57 AM The [place]-Liv catheter has been slightly advanced with tip [...] 20(L) 90 - 130 mL/min/1. 73 m2 [facility] Comment: Interpretive Data Reference Interval [...] Adams MD LAB BLOOD ORDERABLES Final Result [facility] [place] [address] * (ABNORMAL) Differential, auto (06/09/2022 7:57 AM CDT) Neutrophil abs 5.8 1.7 - 6.5 K/cumm [facility] Imm gran abs 0.5(H) 0.0 - 0.1 K/cumm [facility] Lymphocyte abs 1.2 0.8 - 3.3 K[facility] Monocyte abs 1.0(H) 0.2 - 0.8 K/cumm [facility] Eosinophil abs 0.2 0.0 - 0.5 K/cumm [facility] Basophil abs 0.0 0.0 - 0.1 K/cumm [facility] Neutrophil pct 67.0 % [facility] Comment: Interpretive Data Percent cell count reference ranges are not reported, since discordance with absolute values may lead to misinterpretation of CBC data. Current Interpretive Data was last revised on 2017. Imm gran pct 5.6 % [facility] Comment: Interpretive Data Percent cell count reference ranges are not reported, since discordance with absolute values may lead to misinterpretation of CBC data. Current Interpretive Data was last revised on 2017. Lymphocyte pct 13.6 % [facility] Comment: Interpretive Data Percent cell count reference ranges are not reported, since discordance with absolute values may lead to misinterpretation of CBC data. Current Interpretive Data was last revised on 2017. Monocyte pct 11.4 % [facility] Comment: Interpretive Data Percent cell count reference ranges are not reported, since discordance with absolute values may lead to misinterpretation of CBC data. Current Interpretive Data was last revised on 2017. Eosinophil pct 2.2 % [facility] Comment: Interpretive Data Percent cell count reference ranges are not reported, since discordance with absolute values may lead to misinterpretation of CBC data. Current Interpretive Data was last revised on 2017. Basophil pct 0.2 % [facility] Comment: Interpretive Data Percent cell count reference ranges are not reported, since discordance with absolute values may lead to misinterpretation of CBC data. Current Interpretive Data was last revised on 2017. Blood 06/09/2022 7:57 AM CDT 06/09/2022 8:19 AM CDT Catherine Adams MD LAB BLOOD ORDERABLES Final Result Performing Organization Address City/[facility]/ZIP Co de Phone Number [facility] Department [place] [address] * Magnesium (06/09/2022 7:57 AM CDT) [facility] Magnesium 2.3 1.4 - 2.5 mg/dL [facility] Blood 06/09/2022 7:57 AM CDT 06/09/2022 8:19 AM CDT us Marcelina Lo NP LAB BLOOD ORDERABLES Final Re sult Performing Organization Address [facility]/ZIP Co de Phone Number [facility] Department [place] [address] * (ABNORMAL) Comprehensive metabolic panel (06/09/2022 7:57 AM CDT) Pathologist [facility] Sodium 134(L) 135 - 145 mmol/L [facility] Potassium, pl 4.5 3.3 - 4.9 mmol/L [facility] Chloride 99 97 - 110 mmol/L [facility] CO2 28 22 - 32 mmol/L [facility] Anion gap 7 2 - 15 mmol/L [facility] BUN 32(H) 8 - 25 mg/dL [facility] Creatinine 3.50(H) 0.80 - 1.30 mg/dL [facility] Glucose 171 70 - 199 mg/dL [facility] Comment: Interpretive Data Fasting glucose [...] 2017. Calcium 8.4(L) 8.5 - 10.3 mg/dL [facility] Bilirubin, total 0.6 0.1 - 1.2 mg/dL [facility] Protein, pl 5.8(L) 6.5 - 8.5 g/dL [facility] Albumin 2.8(L) 3.5 - 5.0 g/dL [facility] Alk phos 165(H) 40 - 130 Units/L [facility] ALT 43 7 - 55 Units/L [facility] AST 133(H) 10 - 50 Units/L [facility] Blood 06/09/2022 7:57 AM CDT 06/09/2022 8:19 AM CDT Marcelina Lo [employer] [facility] [employer] LAB BLOOD ORDERABLES Final Re sult [facility] Department [place] [address] * Potassium, whole blood (06/09/2022 7:57 AM CDT) [facility] Potassium, bld 4.2 3.3 - 4.9 mmol/L [facility] Blood 06/09/2022 7:57 AM CDT 06/09/2022 8:14 AM CDT Marcelina Lo [employer] [facility] [employer]NALY[employer] LAB BLOOD ORDERABLES Final Re sult [facility] Department [place] [address] * (ABNORMAL) Blood gas, arterial (06/09/2022 7:57 AM CDT) Pathologist [facility] pH, Art 7.43 7.35 - 7.45 [facility] PCO2, Arterial 39 35 - 45 mmHg [facility] PO2, Arterial 107 83 - 108 mmHg [facility] HCO3 Art (Calculated) 27 20 - 30 mmol/L [facility] BE, art 2 mmol/L [facility] Comment: Interpretive Data No Reference Range Established Current Interpretive Data was last revised on 2017 O2 Sat Art (Measured) 97(H) 90 - 95 % [facility] Blood 06/09/2022 7:57 AM CDT 06/09/2022 8:14 AM CDT Marcelina Lo [employer] [facility] [employer]NALY[employer] LAB BLOOD ORDERABLES Final Re sult Performing Organization Address [facility]/ZIP Co de Phone Number [facility] Department [place] [address] * Lactate, whole blood (06/09/2022 7:57 AM CDT) Pathologist [facility] Lactate, bld 1.1 0.7 - 2.0 mmol/L [facility] Blood 06/09/2022 7:57 AM CDT 06/09/2022 8:14 AM CDT Marcelina Lo [employer] [facility] [employer]NALYST LAB BLOOD ORDERABLES Final Re sult [facility] [place] [address] * Type and screen (06/09/2022 7:57 AM CDT) Pathologist [facility] ABO Rh A Positive [facility] Maribel, indirect Negative [facility] Blood 06/09/2022 7:57 AM CDT 06/09/2022 8:20 AM CDT Narrative [facility] - 06/09/2022 9:11 AM CDT Has the patient had Daratumumab or Isatuximab in the past 6 months?->Unknown Cathernie Adams MD LAB BLOOD BANK TEST ORDERAB LES Final Result Performing Organization Address [facility] Co de Phone Number [facility] [place] [address] * (ABNORMAL) Hemoglobin total, pulmonary artery (06/09/2022 7:57 AM CDT) Hemoglobin total, PA 8.7(L) 13.0 - 17.5 g/dL [facility] Blood 06/09/2022 7:57 AM CDT 06/09/2022 8:43 AM CDT Marcelina Lo [employer] [facility] [employer]NALYST LAB BLOOD ORDERABLES Final Re sult Performing Organization Address [facility] [place] [address] * Oxyhemoglobin, pulmonary artery (06/09/2022 7:57 AM CDT) Oxyhemoglobin, PA 55.8 % [facility] Comment: Interpretive Data No reference range established. Current interpretive data was last revised 2019. Blood 06/09/2022 7:57 AM CDT 06/09/2022 8:43 AM CDT Marcelina Lo [employer] [facility] [employer]NA[facility] LAB BLOOD ORDERABLES Final Re sult Performing Organization Address [facility] Co de Phone Number [place] [address] * (ABNORMAL) CBC with auto differential (06/09/2022 7:57 AM CDT) [facility] WBC 8.6 3.8 - 9.9 K/cumm [facility] Hgb 8.1(L) 13.0 - 17.5 g/dL [facility] Hct 23.5(L) 38.9 - 50.3 % [facility] Plt 179 150 - 400 K/cumm [facility] MPV 11.1 9.1 - 12.3 fL [facility] RBC 2.61(L) 4.30 - 5.80 M/cumm [facility] MCV 90.0 81.3 - 96.4 fL [facility] MCH 31.0 27.1 - 33.3 pg [facility] MCHC 34.5 32.3 - 35.7 g/dL [facility] RDW CV 13.4 11.1 - 14.9 % [facility] RDW SD 44.2 35.7 - 48.1 fL [facility] NRBC abs 0.00 0.00 - 0.01 K/cumm [facility] Blood 06/09/2022 7:57 AM CDT 06/09/2022 8:19 AM CDT us Marcelina Lo NP LAB BLOOD ORDERABLES Final Re sult [facility] [place] [address] * POCT glucose (06/09/2022 7:55 AM CDT) [facility] Glucose, POC 155 70 - 199 mg/dL [facility] Blood 06/09/2022 7:55 AM CDT 06/09/2022 7:55 AM CDT us Catherine Adams MD LAB POCT ORDERABLES - DEVIC E Final Result Performing Organization Address City/[facility]/ZIP Co de Phone Number [facility] Department [place] [address] * (ABNORMAL) aPTT (06/09/2022 5:24 AM CDT) aPTT 66(H) 27 - 37 sec [facility] Comment: Interpretive Data Therapeutic heparin range: 60.0 - 94.0 seconds. Based on correlation with therapeutic heparin activity range of 0.3-0.7 Units/mL. Current interpretive data was last revised on 2020. Blood 06/09/2022 5:24 AM CDT 06/09/2022 5:53 AM CDT Narrative [facility] - 06/09/2022 6:02 AM CDT [...] Ann Marie l Result Performing Organization Address [facility] de Phone Number [facility] Department [place] [address] * (ABNORMAL) Blood gas, arterial (06/09/2022 5:24 AM CDT) pH, Art 7.44 7.35 - 7.45 [facility] PCO2, Arterial 38 35 - 45 mmHg [facility] PO2, Arterial 71(L) 83 - 108 mmHg [facility] HCO3 Art (Calculated) 26 20 - 30 mmol/L [facility] BE, art 2 mmol/L [facility] Comment: Interpretive Data No Reference Range Established Current Interpretive Data was last revised on 2017 O2 Sat Art (Measured) 94 90 - 95 % [facility] Blood 06/09/2022 5:24 AM CDT 06/09/2022 5:37 AM CDT us Marcelina Lo NP LAB BLOOD ORDERABLES Final Re sult Performing Organization Address [facility] Co de Phone Number [facility] [place] [address] * XR Chest 1 View (06/09/2022 4:30 [...] diaphragm with tip not seen. Inferior approach [place]iv catheter has been retracted with the tip projecting over the main pulmonary artery. An Impella device is in place, unchanged. There is mild cardiomegaly, unchanged. There is moderate asymmetric left lung and right upper lobe pulmonary edema. Likely small left pleural effusion although the left costophrenic angle is partially off the [id number]. No right pleural effusion or pneumothorax. Second exam ??06/09/2022 7:57 AM The [place]-Liv catheter has been slightly advanced with tip [...] diaphragm with tip not seen. Inferior approach [place]iv catheter has been retracted with the tip projecting over the main pulmonary artery. An Impella device is in place, unchanged. There is mild cardiomegaly, unchanged. There is moderate asymmetric left lung and right upper lobe pulmonary edema. Likely small left pleural effusion although the left costophrenic angle is partially off the [id number]. No right pleural effusion or pneumothorax. Second exam 06/09/2022 7:57 AM The [place]iv catheter has been slightly advanced with tip [...] WBC, ur 0-5 0 - 5 /HPF [facility] RBC, ur 6-10(A) 0 - 2 /HPF [facility] Hyaline casts, ur 1-5 0 - 10 /LPF [facility] Granular casts, ur 1-5(A) 0 - 0 /LPF [facility] Culture Reflex Comment Reflex conditions for urine culture (WBC >10) not met. [facility] Urine 06/09/2022 4:08 AM CDT 06/09/2022 4:16 AM CDT Catherine Adams MD LAB URINE ORDERABLES Final Result [facility] [place] [address] * (ABNORMAL) Urinalysis reflex to microscopic and culture Urine (06/09/2022 4:08 AM CDT) Color, ur Yellow Yellow [facility] Clarity, ur Clear Clear [facility] Specific gravity, ur 1.018 1.003 - 1.030 [facility] pH, urine 5.5 [facility] Protein, ur ql 1+(A) Negative [facility] Glucose, ur ql 4+(A) Negative [facility] Ketones, ur Negative Negative [facility] Bilirubin, ur Negative Negative [facility] Blood, ur 2+(A) Negative [facility] Urobilinogen, ur <2.0 <2.0 mg/dL [facility] Nitrite, ur Negative Negative [facility] Leukocyte esterase, ur Negative Negative [facility] UA reflex comment Reflex to microscopic UA will be performed. [facility] Urine 06/09/2022 4:08 AM CDT 06/09/2022 4:16 AM CDT Narrative [facility] - 06/09/2022 4:35 AM CDT ?? Urine pH is affected by diet, medications, systemic acid-base disturbances, and renal tubular function. ??pH may affect urinary stone formation. ??For example, urine pH below 6.0 may help reduce the tendency for calcium phosphate stones and pH greater than 6.0 may reduce the tendency for uric acid stone formation. Source: [facility] [employer]. Last revised 08-31-2017 Catherine Adams MD LAB MICROBIOLOGY - GENERAL ORDERABLES Final Result Performing Organization Address [facility] Co de Phone Number [facility] [place] [address] * POCT glucose (06/09/2022 4:06 AM CDT) Glucose, POC 147 70 - 199 mg/dL [facility] Blood 06/09/2022 4:06 AM CDT 06/09/2022 4:06 AM CDT Catherine Adams MD LAB POCT ORDERABLES - DEVIC E Final Result Performing Organization Address [facility] Co de Phone Number [facility] Department [place] [address] * (ABNORMAL) Hemoglobin and hematocrit (06/08/2022 11:27 PM CDT) Hgb 7.5(L) 13.0 - 17.5 g/dL [facility] Hct 22.0(L) 38.9 - 50.3 % [facility] Blood 06/08/2022 11:2 7 PM CDT 06/08/2022 11:40 PM CDT Meme Castro MD LAB BLOOD ORDERABLES Final Result Performing Organization Address [facility] Co de Phone Number [facility] [place] [address] * (ABNORMAL) Hemoglobin total, pulmonary artery (06/08/2022 11:27 PM CDT) Pathologist [facility] Hemoglobin total, PA 8.1(L) 13.0 - 17.5 g/dL [facility] Blood 06/08/2022 11:2 7 PM CDT 06/08/2022 11:36 PM CDT Marcelina Lo [employer] [facility] ANALYST LAB BLOOD ORDERABLES Final Re sult Performing Organization Address [facility] Co de Phone Number [facility] [place] [address] * Oxyhemoglobin, pulmonary artery (06/08/2022 11:27 PM CDT) Pathologist [facility] Oxyhemoglobin, PA 57.4 % [facility] Comment: Interpretive Data No reference range established. Current interpretive data was last revised 2019. Blood 06/08/2022 11:2 7 PM CDT 06/08/2022 11:36 PM CDT Marcelina Lo [employer] [facility] [facility] [employer]NALYST LAB BLOOD ORDERABLES Final Re sult Performing Organization Address [facility] Co de Phone Number [facility] Department [place] [address] * (ABNORMAL) aPTT (06/08/2022 11:27 PM CDT) Pathologist [facility] aPTT 44(H) 27 - 37 sec [facility] Comment: Interpretive Data Therapeutic heparin range: 60.0 - 94.0 seconds. Based on correlation with therapeutic heparin activity range of 0.3-0.7 Units/mL. Current interpretive data was last revised on 2020. Blood 06/08/2022 11:2 7 PM CDT 06/09/2022 12:13 AM CDT Narrative [facility] - 06/09/2022 12:22 AM CDT [...] LAB BLOOD ORDERABLES [place] [address] * POCT glucose (06/08/2022 11:25 PM CDT) [facility] Glucose, POC 156 70 - 199 mg/dL [facility] Blood 06/08/2022 11:2 5 PM CDT 06/08/2022 11:25 PM CDT Catherine Adams MD LAB POCT ORDERABLES - [place] [address] * Phosphorus (06/08/2022 8:08 PM CDT) Pathologist [facility] Phosphorus, pl 3.7 2.3 - 4.5 mg/dL [facility] Blood 06/08/2022 8:08 PM CDT 06/08/2022 8:31 PM CDT Catherine Adams MD LAB BLOOD ORDERABLES Final Result Performing Organization Address [facility] Co de Phone Number [facility] [place] [address] * Magnesium (06/08/2022 8:08 PM CDT) Pathologist [facility] Magnesium 2.4 1.4 - 2.5 mg/dL [facility] Blood 06/08/2022 8:08 PM CDT 06/08/2022 8:31 PM CDT Result [facility] Catherine Adams MD LAB BLOOD ORDERABLES Final Result Performing Organization Address [facility] de Phone Number [facility] Department [place] [address] * (ABNORMAL) eGFR (06/08/2022 8:08 PM CDT) [facility] eGFR 14(L) 90 - 130 mL/min/1. 73 m2 [facility] Comment: Interpretive Data Reference Interval [...] Ann Marie l Result Performing Organization Address City/[facility] Co de Phone Number [facility] [place] [address] * (ABNORMAL) Haptoglobin (06/08/2022 8:08 PM CDT) Haptoglobin 219.0(H) 30.0 - 200.0 mg/dL [facility] Blood 06/08/2022 8:0 8 PM CDT 06/08/2022 8:31 PM CDT Result [facility] Catherine Adams MD LAB BLOOD ORDERABLES Final Result Performing Organization Address [facility] Co de Phone Number [facility] [place] [address] * Lipase (06/08/2022 8:08 PM CDT) Lipase 11 10 - 99 Units/L [facility] Blood 06/08/2022 8:08 PM CDT 06/08/2022 8:31 PM CDT Result [facility] Catherine Adams MD LAB BLOOD ORDERABLES Final Result Performing Organization Address City/[facility] Co de Phone Number [facility] Department [place] [address] * (ABNORMAL) Differential, auto (06/08/2022 8:08 PM CDT) Neutrophil abs 7.0(H) 1.7 - 6.5 K/cumm [facility] Imm gran abs 0.4(H) 0.0 - 0.1 K/cumm [facility] Lymphocyte abs 0.9 0.8 - 3.3 K/cumm [facility] Monocyte abs 0.9(H) 0.2 - 0.8 K/cumm [facility] Eosinophil abs 0.1 0.0 - 0.5 K/cumm [facility] Basophil abs 0.0 0.0 - 0.1 K/cumm [facility] Neutrophil pct 75.3 % [facility] Comment: Interpretive Data Percent cell count reference ranges are not reported, since discordance with absolute values may lead to misinterpretation of CBC data. Current Interpretive Data was last revised on 2017. Imm gran pct 3.8 % [facility] Comment: Interpretive Data Percent cell count reference ranges are not reported, since discordance with absolute values may lead to misinterpretation of CBC data. Current Interpretive Data was last revised on 2017. Lymphocyte pct 10.0 % [facility] Comment: Interpretive Data Percent cell count reference ranges are not reported, since discordance with absolute values may lead to misinterpretation of CBC data. Current Interpretive Data was last revised on 2017. Monocyte pct 9.8 % [facility] Comment: Interpretive Data Percent cell count reference ranges are not reported, since discordance with absolute values may lead to misinterpretation of CBC data. Current Interpretive Data was last revised on 2017. Eosinophil pct 1.0 % [facility] Comment: Interpretive Data Percent cell count reference ranges are not reported, since discordance with absolute values may lead to misinterpretation of CBC data. Current Interpretive Data was last revised on 2017. Basophil pct 0.1 % [facility] Comment: Interpretive Data Percent cell count reference ranges are not reported, since discordance with absolute values may lead to misinterpretation of CBC data. Current Interpretive Data was last revised on 2017. Blood 06/08/2022 8:08 PM CDT 06/08/2022 8:30 PM CDT Catherine Adams MD LAB BLOOD ORDERABLES Final Result Performing Organization Address [facility] Co de Phone Number [facility] [place] [address] * (ABNORMAL) Blood gas, arterial (06/08/2022 8:08 PM CDT) pH, Art 7.44 7.35 - 7.45 [facility] PCO2, Arterial 36 35 - 45 mmHg [facility] PO2, Arterial 140(H) 83 - 108 mmHg [facility] HCO3 Art (Calculated) 25 20 - 30 mmol/L [facility] BE, art 0 mmol/L [facility] Comment: Interpretive Data No Reference Range Established Current Interpretive Data was last revised on 2017 O2 Sat Art (Measured) 99(H) 90 - 95 % [facility] Blood 06/08/2022 8:08 PM CDT 06/08/2022 8:15 PM CDT us Marcelina Lo [employer] [facility] [facility]NALY[facility] LAB BLOOD ORDERABLES Final Re sult Performing Organization Address [facility] [place] [address] * (ABNORMAL) Hemoglobin total, pulmonary artery (06/08/2022 8:08 PM CDT) Pathologist [facility] Hemoglobin total, PA 8.7(L) 13.0 - 17.5 g/dL [facility] Blood 06/08/2022 8:08 PM CDT 06/08/2022 8:15 PM CDT Marcelina Lo [employer] [facility] [facility] ANALYST LAB BLOOD ORDERABLES Final Re sult Performing Organization Address City/[facility] Co de Phone Number [facility] [place] [address] * Oxyhemoglobin, pulmonary artery (06/08/2022 8:08 PM CDT) [facility] Oxyhemoglobin, PA 69.9 % [facility] Comment: Interpretive Data No reference range established. Current interpretive data was last revised 2019. Blood 06/08/2022 8:08 PM CDT 06/08/2022 8:15 PM CDT us Marcelina Lo [employer] [facility] [facility] ANALYST LAB BLOOD ORDERABLES Final Re sult [facility] [place] [address] * Respiratory pathogen panel Nasopharyngeal (06/08/2022 8:08 PM CDT) [facility] Influenza A RNA Not Detected Not Detected [facility] Influenza B RNA Not Detected Not Detected [facility] RSV RNA Not Detected Not Detected [facility] COVID-19 RNA Not Detected Not Detected [facility] Coronavirus 229E RNA Not Detected Not Detected [facility] Coronavirus HKU1 RNA Not Detected Not Detected [facility] Coronavirus NL63 RNA Not Detected Not Detected [facility] Coronavirus OC43 RNA Not Detected Not Detected [facility] Adenovirus DNA Not Detected Not Detected [facility] Metapneumovirus RNA Not Detected Not Detected [facility] Rhinovirus/Enterov irus RNA Not Detected Not Detected [facility] Parainfluenza 1 RNA Not Detected Not Detected [facility] Parainfluenza 2 RNA Not Detected Not Detected [facility] Parainfluenza 3 RNA Not Detected Not Detected [facility] Parainfluenza 4 RNA Not Detected Not Detected [facility] B. pertussis DNA Not Detected Not Detected [facility] B. parapertussis DNA Not Detected Not Detected [facility] C. pneumoniae DNA Not Detected Not Detected [facility] M. pneumoniae DNA Not Detected Not Detected [facility] Nasopharyngeal 06/08/2022 8: 08 PM CDT 06/08/2022 9:19 PM CDT Narrative [facility] - 06/08/2022 10:13 PM CDT Previously covid negative Is the Patient experiencing symptoms consistent with COVID?->Unknown Reason for testing?->Patient history unknown Surveillance testing for transplant patient?->No ??Interpretive Data [employer] Respiratory Panel (RP2.1) assay is a [...] assay has FDA clearance for testing of SECURITY OPERATIONS CENTER ANALYST swabs. ??The performance of additional specimen types has been assessed by the performing laboratory. ??The performance characteristics of this assay have been determined by [facility] Molecular Infectious Disease Laboratory. Current interpretive data was last revised on 22. Catherine Adams MD LAB MICROBIOLOGY - GENERAL ORDERABLES Final Result Performing Organization Address City/[facility]/ZIP Co de Phone Number [facility] Department [place] [address] * Beta-hydroxybutyrate (06/08/2022 8:08 PM CDT) Pathologist [facility] Beta-Hydroxybut yrate 0.3 0.0 - 0.5 mmol/L [facility] Blood 06/08/2022 8:08 PM CDT 06/08/2022 8:15 PM CDT Marcelina Lo NP LAB BLOOD ORDERABLES Final Re sult Performing Organization Address [facility] Co de Phone Number [facility] Department [place] [address] * (ABNORMAL) Lactate dehydrogenase (LD) (06/08/2022 8:08 PM CDT) Pathologist [facility] Lactate dehydrogenase (LDH) 444(H) 100 - 250 Units/L [facility] Blood 06/08/2022 8:08 PM CDT 06/08/2022 8:31 PM CDT Catherine Adams MD LAB BLOOD ORDERABLES Final Result Performing Organization Address City/[facility] [place] [address] * (ABNORMAL) Comprehensive metabolic panel (06/08/2022 8:08 PM CDT) Pathologist [facility] Sodium 136 135 - 145 mmol/L [facility] Potassium, pl 4.3 3.3 - 4.9 mmol/L [facility] Chloride 100 97 - 110 mmol/L [facility] CO2 27 22 - 32 mmol/L [facility] Anion gap 9 2 - 15 mmol/L [facility] BUN 42(H) 8 - 25 mg/dL [facility] Creatinine 4.73(H) 0.80 - 1.30 mg/dL [facility] Glucose 146 70 - 199 mg/dL [facility] Comment: Interpretive Data Fasting glucose [...] 2017. Calcium 8.4(L) 8.5 - 10.3 mg/dL [facility] Bilirubin, total 0.5 0.1 - 1.2 mg/dL [facility] Protein, pl 5.8(L) 6.5 - 8.5 g/dL [facility] Albumin 2.8(L) 3.5 - 5.0 g/dL [facility] Alk phos 153(H) 40 - 130 Units/L [facility] ALT 40 7 - 55 Units/L [facility] AST 137(H) 10 - 50 Units/L [facility] Blood 06/08/2022 8:08 PM CDT 06/08/2022 8:31 PM CDT us oCnrad Weston Chi, MD LAB BLOOD ORDERABLES Ann Marie kramer Result [facility] [place] [address] * (ABNORMAL) CBC with auto differential (06/08/2022 8:08 PM CDT) WBC 9.3 3.8 - 9.9 K/cumm [facility] Hgb 6.9(L) 13.0 - 17.5 g/dL [facility] Hct 19.9(L) 38.9 - 50.3 % [facility] Plt 207 150 - 400 K/cumm [facility] MPV 11.2 9.1 - 12.3 fL [facility] RBC 2.20(L) 4.30 - 5.80 M/cumm [facility] MCV 90.5 81.3 - 96.4 fL [facility] MCH 31.4 27.1 - 33.3 pg [facility] MCHC 34.7 32.3 - 35.7 g/dL [facility] RDW CV 13.5 11.1 - 14.9 % [facility] RDW SD 44.4 35.7 - 48.1 fL [facility] NRBC abs 0.00 0.00 - 0.01 K/cumm [facility] Blood 06/08/2022 8:08 PM CDT 06/08/2022 8:30 PM CDT us Marcelina Lo NP LAB BLOOD ORDERABLES Final Re sult [facility] Department [place] [address] * POCT glucose (06/08/2022 8:04 PM CDT) Glucose, POC 153 70 - 199 mg/dL [facility] Blood 06/08/2022 8:04 PM CDT 06/08/2022 8:04 PM CDT Catherine Adams MD LAB POCT ORDERABLES - DEVIC E Final Result [facility] Department [place] [address] * POCT glucose (06/08/2022 8:03 PM CDT) Glucose, POC 162 70 - 199 mg/dL [facility] Blood 06/08/2022 8:03 PM CDT 06/08/2022 8:03 PM CDT Catherine Adams MD LAB POCT ORDERABLES - DEVIC E Final Result Performing Organization Address [facility] Co de Phone Number [facility] [place] [address] * POCT glucose (06/08/2022 4:20 PM CDT) Glucose, POC 135 70 - 199 mg/dL [facility] Blood 06/08/2022 4:20 PM CDT 06/08/2022 4:20 PM CDT Catherine Adams MD LAB POCT ORDERABLES - DEVIC E Final Result Performing Organization Address [facility] de Phone Number [facility] Department [place] [address] * Lactate, whole blood (06/08/2022 4:20 PM CDT) Lactate, bld 1.2 0.7 - 2.0 mmol/L [facility] Blood 06/08/2022 4:20 PM CDT 06/08/2022 4:44 PM CDT Marcelina Lo NP LAB BLOOD ORDERABLES Final Re sult Performing Organization Address [facility] Co de Phone Number [facility] [place] [address] * (ABNORMAL) aPTT (06/08/2022 4:20 PM CDT) aPTT 25(L) 27 - 37 sec [facility] Comment: Interpretive Data Therapeutic heparin range: 60.0 - 94.0 seconds. Based on correlation with therapeutic heparin activity range of 0.3-0.7 Units/mL. Current interpretive data was last revised on 2020. Blood 06/08/2022 4:20 PM CDT 06/08/2022 4:56 PM CDT Narrative [facility] - 06/08/2022 5:12 PM CDT Draw STAT [...] Ann Marie l Result Performing Organization Address City/[facility]/ZIP Co de Phone Number [facility] Department [place] [address] * (ABNORMAL) Hemoglobin total, pulmonary artery (06/08/2022 4:20 PM CDT) Hemoglobin total, PA 8.4(L) 13.0 - 17.5 g/dL [facility] Blood 06/08/2022 4:20 PM CDT 06/08/2022 4:44 PM CDT Marcelina Lo NP LAB BLOOD ORDERABLES Final Re sult Performing Organization Address [facility] Co de Phone Number [facility] [place] [address] * (ABNORMAL) Blood gas, arterial (06/08/2022 4:20 PM CDT) pH, Art 7.44 7.35 - 7.45 [facility] PCO2, Arterial 36 35 - 45 mmHg [facility] PO2, Arterial 156(H) 83 - 108 mmHg [facility] HCO3 Art (Calculated) 25 20 - 30 mmol/L [facility] BE, art 0 mmol/L [facility] Comment: Interpretive Data No Reference Range Established Current Interpretive Data was last revised on 2017 O2 Sat Art (Measured) 98(H) 90 - 95 % [facility] Blood 06/08/2022 4:20 PM CDT 06/08/2022 4:44 PM CDT Marcelina Lo SECURITY OPERATIONS CENTER ANALYST LAB BLOOD ORDERABLES Final Re sult Performing Organization Address [facility] Co de Phone Number [facility] [place] [address] * Oxyhemoglobin, pulmonary artery (06/08/2022 4:20 PM CDT) Oxyhemoglobin, PA 63.1 % [facility] Comment: Interpretive Data No reference range established. Current interpretive data was last revised 2019. Blood 06/08/2022 4:20 PM CDT 06/08/2022 4:44 PM CDT Marcelina Lo SECUR[facility] OPERATIONS C[facility] ANALYST LAB BLOOD ORDERABLES Final Re sult Performing Organization Address [facility] de Phone Number [facility] [place] [address] * TRANSTHORACIC ECHO (TTE) COMPLETE W DOPPLER/CF W CONTRAST (06/08/2022 2:50 PM CDT) LV EF 56 % CARDIOREPORT Anatomical Region Laterality Modality Ultrasound 06/08/2022 12:3 0 PM CDT Narrative 06/08/2022 4:00 PM CDT Patient name: Adelia Garvin Date of test: 06/08/2022 Type of test: TTE w/Doppler Hospital #: 0 Date of : 1970 (M) Station Installer And Repairer: Elli Larsen RDCS Referring Physician: CATHERINE ADAMS MD Contrast Agent: Contrast Administered by: Supervised/Interpreted by: Baldomero Foster MD Diagnosis: Location: [facility] Reason for test: HF with [...] 2=Hypo 3=Akinetic 4=Dyskin./Aneurysm 0=Not visualized) Parasternal [place]:MAS=2 BAS=1 MIL=1 IVETH=1 Parasternal [place]:MAS=2 MIS=1 FL=1 MIL=1 MAL=2 MA=1 Apical 4 Chambers:=1 MIS=1 BIS=1 BAL=1 MAL=2 AL=2 AC=2 Apical 2 Chambers:AI=1 FL=1 BI=1 BA=1 MA=1 AA=1 AC=2 LV Global [...] in anterior wall and anterior septem sugegsting CAD/FL in the LAD territory. LVEF ??is in [...] MD By signing this report, the attending oil paint shader certifies that he or she has personally supervised and interpreted the echocardiogram and has reviewed and or edited and agrees with the written comments contained within the report. Procedure Note Baldomero Foster MD - 06/08/2022 Patient name: Adelia Garvin Date of test: 06/08/2022 Type of test: TTE w/Doppler Hospital #: 0 Date of : 1970 (M) Station Installer And Repairer: Elli Larsen RDCS Referring Physician: CATHERINE ADAMS MD Contrast Agent: Contrast Administered by: Supervised/Interpreted by: Baldomero Foster MD Diagnosis: Location: [facility] Reason for test: HF with [...] 2=Hypo 3=Akinetic 4=Dyskin./Aneurysm 0=Not visualized) Parasternal [place]:MAS=2 BAS=1 MIL=1 IVETH=1 Parasternal [place]:MAS=2 MIS=1 FL=1 MIL=1 MAL=2 MA=1 Apical 4 Chambers:=1 MIS=1 BIS=1 BAL=1 MAL=2 AL=2 AC=2 Apical 2 Chambers:AI=1 FL=1 BI=1 BA=1 MA=1 AA=1 AC=2 LV Global [...] in anterior wall and anterior septem sugegsting CAD/FL in the LAD territory. LVEF is in [...] MD By signing this report, the attending oil paint shader certifies that he or she has personally [...] vena cava. There is an inferior approach [place]-Liv catheter with tip overlying the right main pulmonary artery. An Impella device is present. A gastric tube courses below the inferior margin of the study. The inferior mediastinum and the entire left hemidiaphragm are excluded from the [id number]. The imaged cardiomediastinal silhouette appears stable. There [...] vena cava. There is an inferior approach [place]-Liv catheter with tip overlying the right main pulmonary artery. An Impella device is present. A gastric tube courses below the inferior margin of the study. The inferior mediastinum and the entire left hemidiaphragm are excluded from the [id number]. The imaged cardiomediastinal silhouette appears stable. There [...] it. Electronically signed by: Pete Wilkins M.D. us Catherine Adams MD IMG XR PROCEDURES Final Res ult * Potassium, whole blood (06/08/2022 11:49 AM CDT) [facility] Potassium, bld 4.1 3.3 - 4.9 mmol/L [facility] Blood 06/08/2022 11:4 9 AM CDT 06/08/2022 12:18 PM CDT Marcelina Lo SECUR[facility] OPERATIONS CENTER ANALYST LAB BLOOD ORDERABLES Final Re sult Performing Organization Address City/[facility]/ZIP Co de Phone Number [facility] [place] [address] * (ABNORMAL) Hemoglobin total, pulmonary artery (06/08/2022 11:49 AM CDT) [facility] Hemoglobin total, PA 8.4(L) 13.0 - 17.5 g/dL [facility] Blood 06/08/2022 11:4 9 AM CDT 06/08/2022 12:18 PM CDT Marcelina Lo SECUR[facility] OPERATIONS C[facility] ANALYST LAB BLOOD ORDERABLES Final Re sult [facility] Department [place] [address] * Oxyhemoglobin, pulmonary artery (06/08/2022 11:49 AM CDT) Oxyhemoglobin, PA 63.8 % [facility] Comment: Interpretive Data No reference range established. Current interpretive data was last revised 2019. Blood 06/08/2022 11:4 9 AM CDT 06/08/2022 12:18 PM CDT Marcelina Lo SECUR[facility] OPERATIONS CENTER ANALYST LAB BLOOD ORDERABLES Final Re sult Performing Organization Address City/[facility] Co de Phone Number [facility] Department [place] [address] * POCT glucose (06/08/2022 11:46 AM CDT) Pathologist [facility] Glucose, POC 140 70 - 199 mg/dL [facility] Blood 06/08/2022 11:4 6 AM CDT 06/08/2022 11:46 AM CDT Catherine Adams MD LAB POCT ORDERABLES - DEVIC E Final Result Performing Organization Address [facility] de Phone Number [facility] Department [place] [address] * (ABNORMAL) Blood gas, arterial (06/08/2022 10:44 AM CDT) Pathologist [facility] pH, Art 7.44 7.35 - 7.45 [facility] PCO2, Arterial 34(L) 35 - 45 mmHg [facility] PO2, Arterial 108 83 - 108 mmHg [facility] HCO3 Art (Calculated) 24 20 - 30 mmol/L [facility] BE, art 0 mmol/L [facility] Comment: Interpretive Data No Reference Range Established Current Interpretive Data was last revised on 2017 O2 Sat Art (Measured) 98(H) 90 - 95 % [facility] Blood 06/08/2022 10:4 4 AM CDT 06/08/2022 10:58 AM CDT us Marcelina Lo SECUR[facility] OPER[employer] C[facility] ANALYST LAB BLOOD ORDERABLES Final Re sult Performing Organization Address City/[facility] Co de Phone Number [facility] [place] [address] * POCT glucose (06/08/2022 8:31 AM CDT) Glucose, POC 160 70 - 199 mg/dL [facility] Blood 06/08/2022 8:31 AM CDT 06/08/2022 8:31 AM CDT Catherine Admas MD LAB POCT ORDERABLES - DEVIC E Final Result Performing Organization Address [facility] [place] [address] * (ABNORMAL) Blood gas, arterial (06/08/2022 7:57 AM CDT) Pathologist [facility] pH, Art 7.40 7.35 - 7.45 [facility] PCO2, Arterial 38 35 - 45 mmHg [facility] PO2, Arterial 99 83 - 108 mmHg [facility] HCO3 Art (Calculated) 25 20 - 30 mmol/L [facility] BE, art 0 mmol/L [facility] Comment: Interpretive Data No Reference Range Established Current Interpretive Data was last revised on 2017 O2 Sat Art (Measured) 97(H) 90 - 95 % [facility] Blood 06/08/2022 7:57 AM CDT 06/08/2022 8:22 AM CDT Marcelina Lo SECUR[facility] OPERATIONS CENTER ANALYST LAB BLOOD ORDERABLES Final Re sult Performing Organization Address [facility] Co de Phone Number [place] [address] * (ABNORMAL) Hemoglobin total, pulmonary artery (06/08/2022 7:57 AM CDT) Hemoglobin total, PA 8.8(L) 13.0 - 17.5 g/dL [facility] Blood 06/08/2022 7:57 AM CDT 06/08/2022 8:22 AM CDT Marcelina Lo SEC[facility] [facility] ANALYST LAB BLOOD ORDERABLES Final Re sult Performing Organization Address [facility] Co de Phone Number [facility] [place] [address] * Oxyhemoglobin, pulmonary artery (06/08/2022 7:57 AM CDT) Oxyhemoglobin, PA 65.7 % [facility] Comment: Interpretive Data No reference range established. Current interpretive data was last revised 2019. Blood 06/08/2022 7:57 AM CDT 06/08/2022 8:22 AM CDT Marcelina Lo [facility] OPER[employer] C[facility] ANALYST LAB BLOOD ORDERABLES Final Re sult Performing Organization Address [facility] [place] [address] * X-ray chest 1 view - Portable [...] Impella device. There is an inferior approach [place]-Liv catheter with tip overlying the proximal right [...] Impella device. There is an inferior approach [place]-Liv catheter with tip overlying the proximal right [...] Glucose, POC 157 70 - 199 mg/dL [facility] Blood 06/08/2022 6:29 AM CDT 06/08/2022 6:29 AM CDT Catherine Adams MD LAB POCT ORDERABLES - DEVIC E Final Result Performing Organization Address City/[facility] Co de Phone Number [facility] [place] [address] * POCT glucose (06/08/2022 5:26 AM CDT) Glucose, POC 121 70 - 199 mg/dL [facility] Blood 06/08/2022 5:26 AM CDT 06/08/2022 5:26 AM CDT Catherine Adams MD LAB POCT ORDERABLES - DEVIC E Final Result Performing Organization Address [facility] Co de Phone Number [facility] [place] [address] * POCT glucose (06/08/2022 4:16 AM CDT) Glucose, POC 111 70 - 199 mg/dL [facility] Blood 06/08/2022 4:16 AM CDT 06/08/2022 4:16 AM CDT Catherine Adams MD LAB POCT ORDERABLES - DEVIC E Final Result Performing Organization Address City/[facility] Co de Phone Number [place] [address] * (ABNORMAL) eGFR (06/08/2022 4:12 AM CDT) eGFR 8(L) 90 - 130 mL/min/1. 73 m2 [facility] Comment: Interpretive Data Reference Interval [...] BLOOD ORDERABLES Final Result Performing Organization Address City/State/[facility] Co de Phone Number [facility] [place] [address] * (ABNORMAL) Hemoglobin total, pulmonary artery (06/08/2022 4:12 AM CDT) Hemoglobin total, PA 8.6(L) 13.0 - 17.5 g/dL [facility] Blood 06/08/2022 4:12 AM CDT 06/08/2022 4:30 AM CDT us Marcelina Lo SEC[facility] OPER[employer] [facility] ANALYST LAB BLOOD ORDERABLES Final Re sult [place] [address] * (ABNORMAL) Blood gas, arterial (06/08/2022 4:12 AM CDT) Pathologist [facility] pH, Art 7.41 7.35 - 7.45 [facility] PCO2, Arterial 37 35 - 45 mmHg [facility] PO2, Arterial 57(L) 83 - 108 mmHg [facility] HCO3 Art (Calculated) 24 20 - 30 mmol/L [facility] BE, art -1 mmol/L [facility] Comment: Interpretive Data No Reference Range Established Current Interpretive Data was last revised on 2017 O2 Sat Art (Measured) 88(L) 90 - 95 % [facility] Blood 06/08/2022 4:12 AM CDT 06/08/2022 4:30 AM CDT us Marcelina Lo [facility] [facility] ANALYST LAB BLOOD ORDERABLES Final Re sult Performing Organization Address [facility]/[place] [address] * Oxyhemoglobin, pulmonary artery (06/08/2022 4:12 AM CDT) Pathologist [facility] Oxyhemoglobin, PA 66.9 % [facility] Comment: Interpretive Data No reference range established. Current interpretive data was last revised 2019. Blood 06/08/2022 4:12 AM CDT 06/08/2022 4:30 AM CDT Marcelina Lo [facility] [facility] ANALYST LAB BLOOD ORDERABLES Final Re sult [facility] [place] [address] * Magnesium (06/08/2022 4:12 AM CDT) Magnesium 2.3 1.4 - 2.5 mg/dL [facility] Blood 06/08/2022 4:12 AM CDT 06/08/2022 4:38 AM CDT Catherine Adams MD LAB BLOOD ORDERABLES Final Result [facility] Department [place] [address] * (ABNORMAL) Basic metabolic panel (06/08/2022 4:12 AM CDT) [facility] Sodium 135 135 - 145 mmol/L [facility] Potassium, pl 4.0 3.3 - 4.9 mmol/L [facility] Chloride 99 97 - 110 mmol/L [facility] CO2 26 22 - 32 mmol/L [facility] Anion gap 10 2 - 15 mmol/L [facility] BUN 67(H) 8 - 25 mg/dL [facility] Creatinine 7.65(H) 0.80 - 1.30 mg/dL [facility] Glucose 109 70 - 199 mg/dL [facility] Comment: Interpretive Data Fasting glucose [...] 2017. Calcium 8.2(L) 8.5 - 10.3 mg/dL [facility] Blood 06/08/2022 4:12 AM CDT 06/08/2022 4:38 AM CDT Catherine Adams MD LAB BLOOD ORDERABLES Final Result [facility] Department [place] [address] * POCT glucose (06/08/2022 3:00 AM CDT) Glucose, POC 135 70 - 199 mg/dL [facility] Blood 06/08/2022 3:00 AM CDT 06/08/2022 3:00 AM CDT Catherine Adams MD LAB POCT ORDERABLES - DEVIC E Final Result [facility] Department [place] [address] * (ABNORMAL) Differential, auto (06/08/2022 2:14 AM CDT) Pathologist [facility] Neutrophil abs 8.2(H) 1.7 - 6.5 K/cumm [facility] Imm gran abs 0.4(H) 0.0 - 0.1 K/cumm [facility] Lymphocyte abs 0.5(L) 0.8 - 3.3 K/cumm [facility] Monocyte abs 1.0(H) 0.2 - 0.8 K/cumm [facility] Eosinophil abs 0.0 0.0 - 0.5 K/cumm [facility] Basophil abs 0.0 0.0 - 0.1 K/cumm [facility] Neutrophil pct 81.0 % [facility] Comment: Interpretive Data Percent cell count reference ranges are not reported, since discordance with absolute values may lead to misinterpretation of CBC data. Current Interpretive Data was last revised on 2017. Imm gran pct 3.8 % [facility] Comment: Interpretive Data Percent cell count reference ranges are not reported, since discordance with absolute values may lead to misinterpretation of CBC data. Current Interpretive Data was last revised on 2017. Lymphocyte pct 5.0 % [facility] Comment: Interpretive Data Percent cell count reference ranges are not reported, since discordance with absolute values may lead to misinterpretation of CBC data. Current Interpretive Data was last revised on 2017. Monocyte pct 10.1 % [facility] Comment: Interpretive Data Percent cell count reference ranges are not reported, since discordance with absolute values may lead to misinterpretation of CBC data. Current Interpretive Data was last revised on 2017. Eosinophil pct 0.0 % [facility] Comment: Interpretive Data Percent cell count reference ranges are not reported, since discordance with absolute values may lead to misinterpretation of CBC data. Current Interpretive Data was last revised on 2017. Basophil pct 0.1 % [facility] Comment: Interpretive Data Percent cell count reference ranges are not reported, since discordance with absolute values may lead to misinterpretation of CBC data. Current Interpretive Data was last revised on 2017. Blood 06/08/2022 2:14 AM CDT 06/08/2022 4:38 AM CDT Catherine Adams MD LAB BLOOD ORDERABLES Final Result Performing Organization Address City/[facility]/ZIP Co de Phone Number [facility] [place] [address] * POCT glucose (06/08/2022 2:14 AM CDT) Glucose, POC 141 70 - 199 mg/dL [facility] Blood 06/08/2022 2:14 AM CDT 06/08/2022 2:14 AM CDT Catherine Adams MD LAB POCT ORDERABLES - DEVIC E Final Result [facility] [place] [address] * Potassium, whole blood (06/08/2022 2:14 AM CDT) Potassium, bld 4.0 3.3 - 4.9 mmol/L [facility] Blood 06/08/2022 2:14 AM CDT 06/08/2022 2:22 AM CDT Marcelina Lo [employer] ANALY[employer] LAB BLOOD ORDERABLES Final Re sult Performing Organization Address City/[facility] Co de Phone Number [facility] [place] [address] * (ABNORMAL) Blood gas, arterial (06/08/2022 2:14 AM CDT) [facility] pH, Art 7.45 7.35 - 7.45 [facility] PCO2, Arterial 33(L) 35 - 45 mmHg [facility] PO2, Arterial 180(H) 83 - 108 mmHg [facility] HCO3 Art (Calculated) 24 20 - 30 mmol/L [facility] BE, art -1 mmol/L [facility] Comment: Interpretive Data No Reference Range Established Current Interpretive Data was last revised on 2017 O2 Sat Art (Measured) 98(H) 90 - 95 % [facility] Blood 06/08/2022 2:14 AM CDT 06/08/2022 2:22 AM CDT Marcelina Lo [employer] [facility] [facility] [employer]NALYST LAB BLOOD ORDERABLES Final Re sult Performing Organization Address [facility] Co de Phone Number [facility] Department [place] [address] * (ABNORMAL) CBC with auto differential (06/08/2022 2:14 AM CDT) [facility] WBC 10.1(H) 3.8 - 9.9 K/cumm [facility] Hgb 8.3(L) 13.0 - 17.5 g/dL [facility] Hct 23.1(L) 38.9 - 50.3 % [facility] Plt 218 150 - 400 K/cumm [facility] MPV 11.1 9.1 - 12.3 fL [facility] RBC 2.60(L) 4.30 - 5.80 M/cumm [facility] MCV 88.8 81.3 - 96.4 fL [facility] MCH 31.9 27.1 - 33.3 pg [facility] MCHC 35.9(H) 32.3 - 35.7 g/dL [facility] RDW CV 13.3 11.1 - 14.9 % [facility] RDW SD 43.1 35.7 - 48.1 fL [facility] NRBC abs 0.00 0.00 - 0.01 K/cumm [facility] Blood 06/08/2022 2:14 AM CDT 06/08/2022 4:38 AM CDT us Marcelina Lo [employer] [facility] [employer]NALY[employer] LAB BLOOD ORDERABLES Final Re sult Performing Organization Address City/[facility]/ZIP Co de Phone Number [facility] Department [place] [address] * POCT glucose (06/08/2022 1:13 AM CDT) Glucose, POC 151 70 - 199 mg/dL [facility] Blood 06/08/2022 1:13 AM CDT 06/08/2022 1:13 AM CDT us Catherine Adams MD LAB POCT ORDERABLES - DEVIC E Final Result Performing Organization Address City/[facility]/ZIP Co de Phone Number [facility] Department [place] [address] * (ABNORMAL) Blood gas, arterial (06/08/2022 12:30 AM CDT) pH, Art 7.50(H) 7.35 - 7.45 [facility] PCO2, Arterial 28(L) 35 - 45 mmHg [facility] PO2, Arterial 144(H) 83 - 108 mmHg [facility] HCO3 Art (Calculated) 22 20 - 30 mmol/L [facility] BE, art 0 mmol/L [facility] Comment: Interpretive Data No Reference Range Established Current Interpretive Data was last revised on 2017 O2 Sat Art (Measured) 98(H) 90 - 95 % [facility] Blood 06/08/2022 12:3 0 AM CDT 06/08/2022 12:39 AM CDT us Marcelina Lo NP LAB BLOOD ORDERABLES Final Re sult [facility] Department [place] [address] * (ABNORMAL) eGFR (06/08/2022 12:28 AM CDT) eGFR 7(L) 90 - 130 mL/min/1. 73 m2 [facility] Comment: Interpretive Data Reference Interval [...] BLOOD ORDERABLES Final Result Performing Organization Address [facility] Co de Phone Number [facility] [place] [address] * (ABNORMAL) Hemoglobin total, pulmonary artery (06/08/2022 12:28 AM CDT) Hemoglobin total, PA 9.0(L) 13.0 - 17.5 g/dL [facility] Blood 06/08/2022 12:2 8 AM CDT 06/08/2022 12:39 AM CDT us Marcelina Lo [employer] [facility] [employer]NALYST LAB BLOOD ORDERABLES Final Re sult Performing Organization Address [facility] Co de Phone Number [facility] [place] [address] * Oxyhemoglobin, pulmonary artery (06/08/2022 12:28 AM CDT) Oxyhemoglobin, PA 59.2 % [facility] Comment: Interpretive Data No reference range established. Current interpretive data was last revised 2019. Blood 06/08/2022 12:2 8 AM CDT 06/08/2022 12:39 AM CDT us Marcelina Lo [employer] [facility] ANALYST LAB BLOOD ORDERABLES Final Re sult Performing Organization Address [facility] Co de Phone Number [facility] [place] [address] * Potassium, whole blood (06/08/2022 12:28 AM CDT) Potassium, bld 3.5 3.3 - 4.9 mmol/L [facility] Blood 06/08/2022 12:2 8 AM CDT 06/08/2022 12:39 AM CDT Catherine Adams MD LAB BLOOD ORDERABLES Final Result Performing Organization Address City/[facility]/ZIP Co de Phone Number [facility] [place] [address] * Magnesium (06/08/2022 12:28 AM CDT) [facility] Magnesium 2.2 1.4 - 2.5 mg/dL [facility] Blood 06/08/2022 12:2 8 AM CDT 06/08/2022 12:42 AM CDT Catherine Adams MD LAB BLOOD ORDERABLES Final Result Performing Organization Address [facility] Co de Phone Number [facility] Department [place] [address] * Beta-hydroxybutyrate (06/08/2022 12:28 AM CDT) [facility] Beta-Hydroxybut yrate 0.1 0.0 - 0.5 mmol/L [facility] Blood 06/08/2022 12:2 8 AM CDT 06/08/2022 12:39 AM CDT Catherine Adams MD LAB BLOOD ORDERABLES Edited Result - Final Performing Organization Address [facility] Co de Phone Number [facility] Department [place] [address] * (ABNORMAL) Basic metabolic panel (06/08/2022 12:28 AM CDT) [facility] Sodium 135 135 - 145 mmol/L [facility] Potassium, pl 3.5 3.3 - 4.9 mmol/L [facility] Chloride 96(L) 97 - 110 mmol/L [facility] CO2 23 22 - 32 mmol/L [facility] Anion gap 16(H) 2 - 15 mmol/L [facility] BUN 69(H) 8 - 25 mg/dL [facility] Creatinine 8.46(H) 0.80 - 1.30 mg/dL [facility] Glucose 147 70 - 199 mg/dL [facility] Comment: Interpretive Data Fasting glucose [...] 2017. Calcium 7.8(L) 8.5 - 10.3 mg/dL [facility] Blood 06/08/2022 12:2 8 AM CDT 06/08/2022 12:42 AM CDT Catherine Adams MD LAB BLOOD ORDERABLES Final Result Performing Organization Address [facility] Co de Phone Number [facility] Department [place] [address] * POCT glucose (06/08/2022 12:09 AM CDT) Glucose, POC 169 70 - 199 mg/dL [facility] Blood 06/08/2022 12:0 9 AM CDT 06/08/2022 12:09 AM CDT Catherine Adams MD LAB POCT ORDERABLES - DEVIC E Final Result Performing Organization Address [facility] Co de Phone Number [facility] Department [place] [address] * (ABNORMAL) eGFR (06/07/2022 10:58 PM CDT) eGFR 7(L) 90 - 130 mL/min/1. 73 m2 [facility] Comment: Interpretive Data Reference Interval [...] BLOOD ORDERABLES Final Result Performing Organization Address [facility] Co de Phone Number [facility] Department [place] [address] * (ABNORMAL) POCT glucose (06/07/2022 10:58 PM CDT) Glucose, POC 211(H) 70 - 199 mg/dL [facility] Blood 06/07/2022 10:5 8 PM CDT 06/07/2022 10:58 PM CDT Catherine Adams MD LAB POCT ORDERABLES - DEVIC E Final Result Performing Organization Address City/[facility] Co de Phone Number [facility] [place] [address] * Lactate, whole blood (06/07/2022 10:58 PM CDT) Pathologist [facility] Lactate, bld 1.8 0.7 - 2.0 mmol/L [facility] Blood 06/07/2022 10:5 8 PM CDT 06/07/2022 11:05 PM CDT Catherine Adams MD LAB BLOOD [place] [address] * Potassium, whole blood (06/07/2022 10:58 PM CDT) [facility] Potassium, bld 3.4 3.3 - 4.9 mmol/L [facility] Blood 06/07/2022 10:5 8 PM CDT 06/07/2022 11:05 PM CDT Catherine Adams MD LAB BLOOD ORDERABLES Final Result Performing Organization Address City/[facility] [place] [address] * (ABNORMAL) Phosphorus (06/07/2022 10:58 PM CDT) [facility] Phosphorus, pl 4.7(H) 2.3 - 4.5 mg/dL [facility] Comment:Reviewed Blood 06/07/2022 10:5 8 PM CDT 06/07/2022 11:20 PM CDT Result [facility] Catherine Adams MD LAB BLOOD ORDERABLES Final Result Performing Organization Address City/[facility]/ZIP Co de Phone Number [facility] [place] [address] * Magnesium (06/07/2022 10:58 PM CDT) [facility] Magnesium 2.2 1.4 - 2.5 mg/dL [facility] Blood 06/07/2022 10:5 8 PM CDT 06/07/2022 11:20 PM CDT Catherine Adams MD LAB BLOOD ORDERABLES Final Result [facility] Department [place] [address] * Beta-hydroxybutyrate (06/07/2022 10:58 PM CDT) [facility] Beta-Hydroxybut yrate 0.1 0.0 - 0.5 mmol/L [facility] Blood 06/07/2022 10:5 8 PM CDT 06/07/2022 11:05 PM CDT Catherine Adams MD LAB BLOOD ORDERABLES Final Result Performing Organization Address City/[facility] Co de Phone Number [facility] [place] [address] * (ABNORMAL) Basic metabolic panel (06/07/2022 10:58 PM CDT) [facility] Sodium 134(L) 135 - 145 mmol/L [facility] Potassium, pl 3.4 3.3 - 4.9 mmol/L [facility] Chloride 95(L) 97 - 110 mmol/L [facility] CO2 23 22 - 32 mmol/L [facility] Anion gap 16(H) 2 - 15 mmol/L [facility] BUN 75(H) 8 - 25 mg/dL [facility] Creatinine 8.92(H) 0.80 - 1.30 mg/dL [facility] Glucose 187 70 - 199 mg/dL [facility] Comment: Interpretive Data Fasting glucose [...] 2017. Calcium 8.1(L) 8.5 - 10.3 mg/dL [facility] Blood 06/07/2022 10:5 8 PM CDT 06/07/2022 11:20 PM CDT us Catherine Adams MD LAB BLOOD ORDERABLES Final Result Performing Organization Address [facility] de Phone Number [facility] Department [place] [address] * (ABNORMAL) Blood gas, arterial (06/07/2022 10:58 PM CDT) pH, Art 7.46(H) 7.35 - 7.45 [facility] PCO2, Arterial 31(L) 35 - 45 mmHg [facility] PO2, Arterial 73(L) 83 - 108 mmHg [facility] HCO3 Art (Calculated) 22 20 - 30 mmol/L [facility] BE, art -2 mmol/L [facility] Comment: Interpretive Data No Reference Range Established Current Interpretive Data was last revised on 2017 O2 Sat Art (Measured) 95 90 - 95 % [facility] Blood 06/07/2022 10:5 8 PM CDT 06/07/2022 11:05 PM CDT us Marcelina Lo NP LAB BLOOD ORDERABLES Final Re sult Performing Organization Address [facility] Co de Phone Number [facility] Department [place] [address] * MT ARTL CATHJ/CANNULJ MNTR/TRANSFUSION SPX PRQ (06/07/2022 10:17 PM CDT) Narrative Eric Reed MD - 06/07/2022 10:17 PM CDT Lavern Morrison MD ? 06/07/2022 10:29 PM Arterial Line Insertion Date/Time: 06/07/2022 10:17 PM Performed by: Lavern Morrison MD Authorized by: Lavern Morrison MD [place] Protocol: RN Notified of Procedure: yes ?? [...] matched to patient identification: n/a ?? Responsible green party for transporting specimen(s) to lab determined: n/a ?? Lavern Morrison MD IV THERAPY ORDERABLES Final Result * (ABNORMAL) POCT glucose (06/07/2022 9:58 PM CDT) Glucose, POC 249(H) 70 - 199 mg/dL [facility] Blood 06/07/2022 9:58 PM CDT 06/07/2022 9:58 PM CDT Catherine Adams MD LAB POCT ORDERABLES - DEVIC E Final Result [facility] [place] [address] * XR Abdomen Ap 1 Vw (06/07/2022 [...] it. Electronically signed by: Félix Chahal M.D. Result [facility] Catherine Adams MD IMG XR PROCEDURES Final Res ult * Reticulocyte Count (06/07/2022 8:54 PM CDT) [facility] Retics, absolute 0.052 0.020 - 0.087 M/cumm [facility] Retics 2.2 0.4 - 2.9 % [facility] Reticulocyte Hgb 31.7 30.5 - 38.0 pg [facility] Blood 06/07/2022 8:54 PM CDT 06/07/2022 9:52 PM CDT Result [facility] Catherine Adams MD LAB BLOOD ORDERABLES Final Result Performing Organization Address [facility]/ZIP Co de Phone Number [facility] [place] [address] * (ABNORMAL) Hemoglobin and hematocrit (06/07/2022 8:54 PM CDT) [facility] Hgb 7.5(L) 13.0 - 17.5 g/dL [facility] Comment:Hemoglobin delta due to apparent blood transfusion. Hct 20.9(L) 38.9 - 50.3 % [facility] Blood 06/07/2022 8:54 PM CDT 06/07/2022 9:47 PM CDT Result [facility] Catherine Adams MD LAB BLOOD ORDERABLES Final Result Performing Organization Address City/[facility]/ZIP Co de Phone Number [facility] [place] [address] * (ABNORMAL) POCT glucose (06/07/2022 8:50 PM CDT) Glucose, POC 304(H) 70 - 199 mg/dL [facility] Blood 06/07/2022 8:50 PM CDT 06/07/2022 8:50 PM CDT Catherine Adams MD LAB POCT ORDERABLES - DEVIC E Final Result [facility] [place] [address] * (ABNORMAL) Haptoglobin (06/07/2022 8:00 PM CDT) [facility] Haptoglobin 312.0(H) 30.0 - 200.0 mg/dL [facility] Blood 06/07/2022 8:00 PM CDT 06/07/2022 8:26 PM CDT Catherine Adams MD LAB BLOOD ORDERABLES Final Result Performing Organization Address City/[facility] Co de Phone Number [facility] Department [place] [address] * (ABNORMAL) Lactate dehydrogenase (LD) (06/07/2022 8:00 PM CDT) [facility] Lactate dehydrogenase (LDH) 335(H) 100 - 250 Units/L [facility] Blood 06/07/2022 8:00 PM CDT 06/07/2022 8:26 PM CDT Catherine Adams MD LAB BLOOD ORDERABLES Final Result Performing Organization Address City/[facility] Co de Phone Number [facility] Department [place] [address] * (ABNORMAL) Ferritin (06/07/2022 8:00 PM CDT) Ferritin 2,062(H) 30 - 400 ng/mL [facility] Blood 06/07/2022 8:00 PM CDT 06/07/2022 8:26 PM CDT Catherine Adams MD LAB BLOOD ORDERABLES Final Result [facility] [place] [address] * (ABNORMAL) Iron profile w/ IBC (06/07/2022 8:00 PM CDT) [facility] Iron 50 50 - 150 mcg/dL [facility] TIBC 130(L) 250 - 400 mcg/dL [facility] Transferrin saturation 38 20 - 50 % [facility] Blood 06/07/2022 8:00 PM CDT 06/07/2022 8:26 PM CDT Catherine Adams MD LAB BLOOD ORDERABLES Final Result [place] [address] * Folate (06/07/2022 8:00 PM CDT) [facility] Folic acid 8.7 >=5.0 ng/mL [facility] Blood 06/07/2022 8:00 PM CDT 06/07/2022 8:26 PM CDT Catherien Adams MD LAB BLOOD [place] [address] * Vitamin B12 (06/07/2022 8:00 PM CDT) [facility] Vitamin B12 373 230 - 1,250 pg/mL [facility] Blood 06/07/2022 8:00 PM CDT 06/07/2022 8:26 PM CDT Catherine Adams MD LAB BLOOD ORDERABLES Final Result Performing Organization Address [facility] Co de Phone Number [facility] [place] [address] * Oxyhemoglobin, pulmonary artery (06/07/2022 7:57 PM CDT) Oxyhemoglobin, PA 57.3 % [facility] Comment: Interpretive Data No reference range established. Current interpretive data was last revised 2019. Blood 06/07/2022 7:57 PM CDT 06/07/2022 8:09 PM CDT Result [facility] Marcelina Lo [employer] [facility] [facility] ANALYST LAB BLOOD ORDERABLES Final Re sult Performing Organization Address [facility] Co de Phone Number [facility] [place] [address] * (ABNORMAL) Hemoglobin total, pulmonary artery (06/07/2022 7:57 PM CDT) Hemoglobin total, PA 8.7(L) 13.0 - 17.5 g/dL [facility] Blood 06/07/2022 7:57 PM CDT 06/07/2022 8:09 PM CDT Result [facility] Marcelina Lo [employer] [facility] ANALYST LAB BLOOD ORDERABLES Final Re sult Performing Organization Address [facility] Co de Phone Number [place] [address] * (ABNORMAL) aPTT (06/07/2022 7:57 PM CDT) aPTT 44(H) 27 - 37 sec [facility] Comment: Interpretive Data Therapeutic heparin range: 60.0 - 94.0 seconds. Based on correlation with therapeutic heparin activity range of 0.3-0.7 Units/mL. Current interpretive data was last revised on 2020. Blood 06/07/2022 7:57 PM CDT 06/07/2022 8:14 PM CDT Narrative [facility] - 06/07/2022 8:20 PM CDT [...] Ann Marie l Result Performing Organization Address [facility]/ZIP Co de Phone Number [facility] Department [place] [address] * Potassium, whole blood (06/07/2022 7:57 PM CDT) Potassium, bld 3.3 3.3 - 4.9 mmol/L [facility] Blood 06/07/2022 7:57 PM CDT 06/07/2022 8:09 PM CDT Result [facility] Catherine Adams MD LAB BLOOD ORDERABLES Final Result Performing Organization Address [facility] Co de Phone Number [facility] Department [place] [address] * (ABNORMAL) POCT glucose (06/07/2022 7:51 PM CDT) Glucose, POC 325(H) 70 - 199 mg/dL [facility] Blood 06/07/2022 7:51 PM CDT 06/07/2022 7:51 PM CDT Result [facility] Catherine Adams MD LAB POCT ORDERABLES - DEVIC E Final Result [facility] [place] [address] * (ABNORMAL) Differential, auto (06/07/2022 7:42 PM CDT) Neutrophil abs 7.3(H) 1.7 - 6.5 K/cumm [facility] Imm gran abs 0.2(H) 0.0 - 0.1 K/cumm [facility] Lymphocyte abs 0.6(L) 0.8 - 3.3 K/cumm [facility] Monocyte abs 0.5 0.2 - 0.8 K/cumm [facility] Eosinophil abs 0.0 0.0 - 0.5 K/cumm [facility] Basophil abs 0.0 0.0 - 0.1 K/cumm [facility] Neutrophil pct 85.1 % [facility] Comment: Interpretive Data Percent cell count reference ranges are not reported, since discordance with absolute values may lead to misinterpretation of CBC data. Current Interpretive Data was last revised on 2017. Imm gran pct 2.4 % [facility] Comment: Interpretive Data Percent cell count reference ranges are not reported, since discordance with absolute values may lead to misinterpretation of CBC data. Current Interpretive Data was last revised on 2017. Lymphocyte pct 6.6 % [facility] Comment: Interpretive Data Percent cell count reference ranges are not reported, since discordance with absolute values may lead to misinterpretation of CBC data. Current Interpretive Data was last revised on 2017. Monocyte pct 5.8 % [facility] Comment: Interpretive Data Percent cell count reference ranges are not reported, since discordance with absolute values may lead to misinterpretation of CBC data. Current Interpretive Data was last revised on 2017. Eosinophil pct 0.0 % [facility] Comment: Interpretive Data Percent cell count reference ranges are not reported, since discordance with absolute values may lead to misinterpretation of CBC data. Current Interpretive Data was last revised on 2017. Basophil pct 0.1 % [facility] Comment: Interpretive Data Percent cell count reference ranges are not reported, since discordance with absolute values may lead to misinterpretation of CBC data. Current Interpretive Data was last revised on 2017. Blood 06/07/2022 7:42 PM CDT 06/07/2022 8:25 PM CDT Catherine Adams MD LAB BLOOD ORDERABLES Final Result Performing Organization Address City/[facility]/ZIP Co de Phone Number [facility] [place] [address] * (ABNORMAL) CBC with auto differential (06/07/2022 7:42 PM CDT) [facility] WBC 8.6 3.8 - 9.9 K/cumm [facility] Hgb 4.3(C) 13.0 - 17.5 g/dL [facility] Comment:Critical result call ed to and read back by LAVERN MORRISON RN on 06 07 2022 at 6 to Janis Melton. Hct 12.3(L) 38.9 - 50.3 % [facility] Plt 233 150 - 400 K/cumm [facility] MPV 11.5 9.1 - 12.3 fL [facility] RBC 1.38(L) 4.30 - 5.80 M/cumm [facility] MCV 89.1 81.3 - 96.4 fL [facility] MCH 31.2 27.1 - 33.3 pg [facility] MCHC 35.0 32.3 - 35.7 g/dL [facility] RDW CV 13.3 11.1 - 14.9 % [facility] RDW SD 43.5 35.7 - 48.1 fL [facility] NRBC abs 0.00 0.00 - 0.01 K/cumm [facility] Blood 06/07/2022 7:42 PM CDT 06/07/2022 8:25 PM CDT Catherine Adams MD LAB BLOOD ORDERABLES Final Result Performing Organization Address City/[facility]/ZIP Co de Phone Number [facility] [place] [address] * (ABNORMAL) Beta-hydroxybutyrate (06/07/2022 6:24 PM CDT) Pathologist [facility] Beta-Hydroxybut yrate 2.3(H) 0.0 - 0.5 mmol/L [facility] Blood 06/07/2022 6:24 PM CDT 06/07/2022 6:42 PM CDT Catherine Aadms MD LAB BLOOD ORDERABLES Final Result [facility] [place] [address] * (ABNORMAL) Differential, auto (06/07/2022 6:24 PM CDT) [facility] Neutrophil abs 6.5 1.7 - 6.5 K/cumm [facility] Imm gran abs 0.2(H) 0.0 - 0.1 K/cumm [facility] Lymphocyte abs 0.4(L) 0.8 - 3.3 K/cumm [facility] Monocyte abs 0.3 0.2 - 0.8 K/cumm [facility] Eosinophil abs 0.0 0.0 - 0.5 K/cumm [facility] Basophil abs 0.0 0.0 - 0.1 K/cumm [facility] Neutrophil pct 88.3 % [facility] Comment: Interpretive Data Percent cell count reference ranges are not reported, since discordance with absolute values may lead to misinterpretation of CBC data. Current Interpretive Data was last revised on 2017. Imm gran pct 2.0 % [facility] Comment: Interpretive Data Percent cell count reference ranges are not reported, since discordance with absolute values may lead to misinterpretation of CBC data. Current Interpretive Data was last revised on 2017. Lymphocyte pct 5.3 % [facility] Comment: Interpretive Data Percent cell count reference ranges are not reported, since discordance with absolute values may lead to misinterpretation of CBC data. Current Interpretive Data was last revised on 2017. Monocyte pct 4.4 % [facility] Comment: Interpretive Data Percent cell count reference ranges are not reported, since discordance with absolute values may lead to misinterpretation of CBC data. Current Interpretive Data was last revised on 2017. Eosinophil pct 0.0 % [facility] Comment: Interpretive Data Percent cell count reference ranges are not reported, since discordance with absolute values may lead to misinterpretation of CBC data. Current Interpretive Data was last revised on 2017. Basophil pct 0.0 % [facility] Comment: Interpretive Data Percent cell count reference ranges are not reported, since discordance with absolute values may lead to misinterpretation of CBC data. Current Interpretive Data was last revised on 2017. Blood 06/07/2022 6:24 PM CDT 06/07/2022 6:37 PM CDT Catherine Adams MD LAB BLOOD ORDERABLES Final Result Performing Organization Address City/State/[facility] Co de Phone Number [facility] [place] [address] * Blood culture Blood Wrist, right (06/07/2022 6:24 PM CDT) Report Final Report: No growth [facility] Blood (Wrist, right) 06/07/2022 6:24 PM CDT 06/07/2022 6:45 PM CDT Narrative [facility] - 06/12/2022 7:00 AM CDT From a [...] organism identification may be performed using the HearMeOutigene Gram-Positive Blood Culture Assay. This assay detects microbial DNA in positive blood culture broth via hybridization of target DNA to capture oligonucleotides on a microarray. This assay has been cleared by the [place] Food and Drug Administration and its performance characteristics have been verified by the [facility] Microbiology Laboratory. 5. ?For questions about this culture, contact the Microbiology Laboratory at [phone]. Interpretive data was last revised on 2020. Catherien Adams MD LAB MICROBIOLOGY - GENERAL ORDERABLES Final Result [facility] Department [place] [address] * Blood culture Blood Central venous catheter (06/07/2022 6:24 PM CDT) Report Final Report: No growth [facility] Blood (Central venous catheter) 06/07/2022 6:24 PM CDT 06/07/2022 6:50 PM CDT Narrative [facility] - 06/12/2022 7:00 AM CDT 1. ?Blood [...] characteristics have been verified by the [facility] Microbiology Laboratory. 5. ?For questions about this culture, contact the Microbiology Laboratory at [phone]. Interpretive data was last revised on 2020. Catherine Adams MD LAB MICROBIOLOGY - GENERAL ORDERABLES Final Result [facility] Department [place] [address] * (ABNORMAL) CBC with auto differential (06/07/2022 6:24 PM CDT) WBC 7.3 3.8 - 9.9 K/cumm [facility] Hgb 7.8(L) 13.0 - 17.5 g/dL [facility] Hct 22.1(L) 38.9 - 50.3 % [facility] Plt 194 150 - 400 K/cumm [facility] MPV 11.2 9.1 - 12.3 fL [facility] RBC 2.52(L) 4.30 - 5.80 M/cumm [facility] MCV 87.7 81.3 - 96.4 fL [facility] MCH 31.0 27.1 - 33.3 pg [facility] MCHC 35.3 32.3 - 35.7 g/dL [facility] RDW CV 13.2 11.1 - 14.9 % [facility] RDW SD 42.8 35.7 - 48.1 fL [facility] NRBC abs 0.00 0.00 - 0.01 K/cumm [facility] Blood 06/07/2022 6:24 PM CDT 06/07/2022 6:37 PM CDT Catherine Adams MD LAB BLOOD ORDERABLES Final Result [facility] Department [place] [address] * XR Chest 1 View (06/07/2022 6:20 [...] Impella device. There is an inferior approach [place]iv catheter with tip overlying the proximal right [...] Impella device. There is an inferior approach [place]iv catheter with tip overlying the proximal right [...] CDT) pH, Art 7.46(H) 7.35 - 7.45 [facility] PCO2, Arterial 27(L) 35 - 45 mmHg [facility] PO2, Arterial 105 83 - 108 mmHg [facility] HCO3 Art (Calculated) 20 20 - 30 mmol/L [facility] BE, art -4 mmol/L [facility] Comment: Interpretive Data No Reference Range Established Current Interpretive Data was last revised on 2017 O2 Sat Art (Measured) 98(H) 90 - 95 % [facility] Blood 06/07/2022 5:20 PM CDT 06/07/2022 5:26 PM CDT Catherine Adams MD LAB BLOOD ORDERABLES Final Result [facility] Department [place] [address] * Critical result callback Cardio chemistry (06/07/2022 5:12 PM CDT) Date Notified [id number] [facility] Time Notified 1850 [facility] Test name [facility] Called[facility]Read Back Anali [facility] Credentials MD [facility] Called By Usha [facility] Blood 06/07/2022 5:12 PM CDT 06/07/2022 6:10 PM CDT Catherine Adams MD LAB BLOOD ORDERABLES Final Result [facility] Department [place] [address] * (ABNORMAL) Troponin I high-sensitivity (06/07/2022 5:12 PM CDT) Pathologist [facility] Trop I hs 2,704(C) <=35 ng/L [facility] Comment: Interpretive Data For further hscTnI resources including the diagnostic algorithm and an aid in interpretation, copy and paste this link: [email or web address].testcatalog.org/show/[email or web address] Current Interpretive Data last revised 2020. Blood 06/07/2022 5:12 PM CDT 06/07/2022 5:29 PM CDT Catherine Adams MD LAB BLOOD ORDERABLES Final Result [facility] Department [place] [address] * Lactate (06/07/2022 5:12 PM CDT) Pathologist [facility] Lactate 1.3 0.7 - 2.0 mmol/L [facility] Blood 06/07/2022 5:12 PM CDT 06/07/2022 5:22 PM CDT Catherine Adams MD LAB BLOOD ORDERABLES Final Result Performing Organization Address [facility] Co de Phone Number [facility] [place] [address] * (ABNORMAL) eGFR (06/07/2022 5:08 PM CDT) [facility] eGFR 5(L) 90 - 130 mL/min/1. 73 m2 [facility] Comment: Interpretive Data Reference Interval [...] Ann Marie l Result Performing Organization Address [facility] Co de Phone Number [facility] Department [place] [address] * (ABNORMAL) Triglycerides (06/07/2022 5:08 PM CDT) Triglycerides 172(H) <=149 mg/dL [facility] Comment: Hemolyzed; result may be [...] 5:08 PM CDT 06/07/2022 5:33 PM CDT Catherine Adams MD LAB BLOOD ORDERABLES Final Result [facility] [place] [address] * (ABNORMAL) Hemoglobin total, central venous (06/07/2022 5:08 PM CDT) Hemoglobin total, CV 8.2(L) 13.0 - 17.5 g/dL [facility] Blood 06/07/2022 5:08 PM CDT 06/07/2022 5:22 PM CDT Narrative [facility] - 06/07/2022 5:25 PM CDT If using Miley Cardiac Output Method Result [facility] Catherine Adams MD LAB BLOOD ORDERABLES Final Result Performing Organization Address City/[facility] Co de Phone Number [facility] [place] [address] * Methemoglobin, central venous (06/07/2022 5:08 PM CDT) Methemoglobin, CV 2.1 % [facility] Comment: Interpretive Data No reference range established. Current interpretive data was last revised 2019. Blood 06/07/2022 5:08 PM CDT 06/07/2022 5:22 PM CDT Narrative [facility] - 06/07/2022 5:25 PM CDT If using Miley Cardiac Output Method Result [facility] Catherine Adams MD LAB BLOOD ORDERABLES Final Result Performing Organization Address [facility] Co de Phone Number [facility] [place] [address] * Carboxyhemoglobin, central venous (06/07/2022 5:08 PM CDT) Carboxyhemoglobin , CV 1.0 % [facility] Comment: Interpretive Data No reference range established. Current interpretive data was last revised 2019. Blood 06/07/2022 5:08 PM CDT 06/07/2022 5:22 PM CDT Narrative [facility] - 06/07/2022 5:26 PM CDT If using Miley Cardiac Output Method Result [facility] Catherine Adams MD LAB BLOOD ORDERABLES Final Result Performing Organization Address City/[facility] Co de Phone Number [facility] [place] [address] * Oxyhemoglobin, central venous (06/07/2022 5:08 PM CDT) Oxyhemoglobin, CV 66.6 % [facility] Comment: Interpretive Data No reference range established. Current interpretive data was last revised 2019. Blood 06/07/2022 5:08 PM CDT 06/07/2022 5:22 PM CDT Narrative [facility] - 06/07/2022 5:25 PM CDT If using Miley Cardiac Output Method Catherine Adams MD LAB BLOOD ORDERABLES Final Result [place] [address] * (ABNORMAL) Phosphorus (06/07/2022 5:08 PM CDT) [facility] Phosphorus, pl 7.2(H) 2.3 - 4.5 mg/dL [facility] Comment:Hemolyzed; result ma y be falsely elevated Blood 06/07/2022 5:08 PM CDT 06/07/2022 5:33 PM CDT Conrad Weston Chi, MD LAB BLOOD ORDERABLES Ann Marie l Result Performing Organization Address [facility] Co de Phone Number [place] [address] * Magnesium (06/07/2022 5:08 PM CDT) [facility] Magnesium 2.2 1.4 - 2.5 mg/dL [facility] Blood 06/07/2022 5:08 PM CDT 06/07/2022 5:33 PM CDT Result [facility] Conrad Weston Chi, MD LAB BLOOD ORDERABLES Ann Marie l Result Performing Organization Address City/[facility]/ZIP Co de Phone Number [facility] Department [place] [address] * (ABNORMAL) Comprehensive metabolic panel (06/07/2022 5:08 PM CDT) Sodium 129(L) 135 - 145 mmol/L [facility] Potassium, pl See Comment 3.3 - 4.9 mmol/L [facility] Comment:Credited; Hemolyzed Specimen Chloride 87(L) 97 - 110 mmol/L [facility] CO2 21(L) 22 - 32 mmol/L [facility] Anion gap 21(H) 2 - 15 mmol/L [facility] BUN 80(H) 8 - 25 mg/dL [facility] Creatinine 10.36(H) 0.80 - 1.30 mg/dL [facility] Glucose 329(H) 70 - 199 mg/dL [facility] Comment: Interpretive Data Fasting glucose [...] 2017. Calcium 8.1(L) 8.5 - 10.3 mg/dL [facility] Bilirubin, total 0.8 0.1 - 1.2 mg/dL [facility] Protein, pl 6.0(L) 6.5 - 8.5 g/dL [facility] Albumin 2.5(L) 3.5 - 5.0 g/dL [facility] Alk phos 177(H) 40 - 130 Units/L [facility] Comment:Hemolyzed; result ma y be falsely decreased ALT See Comment 7 - 55 Units/L [facility] Comment:Credited; Hemolyzed Specimen AST See Comment 10 - 50 Units/L [facility] Comment:Credited; Hemolyzed Specimen Blood 06/07/2022 5:08 PM CDT 06/07/2022 5:33 PM CDT us Conrad Weston Chi, MD LAB BLOOD ORDERABLES Ann Marie l Result Performing Organization Address City/[facility]/ZIP Co de Phone Number [facility] [place] [address] * (ABNORMAL) POCT glucose (06/07/2022 5:00 PM CDT) Glucose, POC 385(H) 70 - 199 mg/dL [facility] Glucose comment 1 Glu2: RN/MD Notified [facility] Blood 06/07/2022 5:00 PM CDT 06/07/2022 5:00 PM CDT us Catherine Adams MD LAB POCT ORDERABLES - DEVIC E Final Result Performing Organization Address [facility] Co de Phone Number [facility] [place] [address] * ECG 12 lead (06/07/2022 4:59 PM CDT) Ventricular Rate EKG/Min 51 BPM [facility] Atrial Rate 51 BPM [facility] MT-Interval (MSEC) 212 ms [facility] QRS-Interval (MSEC) 130 ms [facility] QT-Interval (MSEC) 580 ms [facility] QTc 534 ms [facility] P [place] 69 degrees [facility] R [place] -38 degrees [facility] T [place] 95 degrees [facility] Diagnosis Sinus bradycardia with 1st degree [...] BUSTOS M.D ([id number]) on 06/08/2022 9:42:26 AM [facility] 06/07/2022 4:59 PM CDT 06/08/2022 9:42 AM CDT us Catherine Adams MD ECG ORDERABLES Final Resul t [employer] [facility] * MARIELLA MAJOR CORONARY (06/07/2022 3:57 PM CDT) Anatomical Region Laterality Modality X-Ray Angiograph y Narrative 06/07/2022 4:24 PM CDT Cardiac catheterization Interventional fellow: ??Dr. Fernando Talavera HPI 51-year-old morbidly obese male with a history of end-stage renal disease on peritoneal dialysis, hypertension diabetes hyperlipidemia and recent non ST elevation [place] now referred for complex PCI. ??Patient is followed at an outside hospital repetitive episodes of flash pulmonary edema/hypertensive urgency despite 3 medications. ??Recently underwent cardiac catheterization revealed a 90% ostial circumflex and a left-dominant circulation, 98% mid circumflex and a 70% om lesion. ??It is felt to be extremely high risk was transferred to [facility]. ?? He had hypoxemic respiratory arrest that [...] ??Using ultrasound directed micropuncture technique a 7 Polish 45 cm sheath placed in the right femoral artery over an [place] wire. ?? Subsequently, an 8 Polish sheath inserted into the left femoral vein with placement of a [place]-Liv catheter with the pulmonary artery. ??Heparin was administered to maintain ACT of 300 seconds or greater. ??Angioplasty was performed with a 7 Polish EBU 3.5 guide catheter, 0.014 in menhaden vessel pilot 50 wire in the circumflex and [...] artery sheath was exchanged for a 14 Polish Impella sheath. ??An Impella CP was placed into the left ventricle producing 3.2-3.4 liters/minute flow. ??The peel-away sheath was removed and the permanent sheath inserted. ??Two 6 Polish pro style were placed prior to sheath insertion with preserved sterilely. ?? Impella sheath was sewn in place as well as a [place]-Liv catheter. ?? Trial[place] catheter was placed into [...] time, low range (06/07/2022 2:15 PM CDT) [facility] ACT 226(H) 123 - 168 sec [facility] Blood 06/07/2022 2:15 PM CDT 06/07/2022 2:15 PM CDT Catherine Adams MD LAB POCT ORDERABLES - DEVIC E Final Result [facility] [place] [address] * (ABNORMAL) POC Blood Gas and Chemistries, Arterial - (06/07/2022 1:52 PM CDT) [facility] pH, Art POC 7.30(L) 7.35 - 7.45 [facility] pCO2, Art POC 42 35 - 45 mmHg [facility] pO2, Art POC 49(L) 83 - 108 mmHg [facility] Na, POC 132(L) 135 - 145 mmol/L [facility] K POC 4.1 3.3 - 4.9 mmol/L [facility] Comment: Interpretive Data This method is not able to assess for hemolysis, which may falsely increase potassium concentrations. If further testing is needed to evaluate this result, consider in-laboratory plasma potassium. Current Interpretive Data was last revised on 2022. Cl, POC 96(L) 97 - 110 mmol/L [facility] Ionized Ca, POC 4.62 4.50 - 5.10 mg/dL [facility] Glucose, POC 293(H) 70 - 199 mg/dL [facility] Lactate, POC 3.4(H) 0.7 - 2.2 mmol/L [facility] SO2 (uyen) arterial 78(L) 90 - 95 % [facility] Base excess, POC -5.5 mmol/L [facility] HCO3, Art POC 21 20 - 30 mmol/L [facility] Hct, POC 30.0(L) 41.4 - 51.6 % [facility] O2 Sat, Art POC (Calc) 80 % [facility] Total Hb, POC 9.9(L) 13.8 - 17.2 g/dL [facility] Blood 06/07/2022 1:52 PM CDT 06/07/2022 1:52 PM CDT us Conrad Weston Chi, MD LAB POCT ORDERABLES - DEV ICE Final Result Performing Organization Address City/[facility]/ZIP Co de Phone Number [facility] Department [place] [address] * (ABNORMAL) POCT Activated clotting time, low range (06/07/2022 1:49 PM CDT) ACT 214(H) 123 - 168 sec [facility] Blood 06/07/2022 1:49 PM CDT 06/07/2022 1:49 PM CDT us Catherine Adams MD LAB POCT ORDERABLES - DEVIC E Final Result Performing Organization Address City/[facility]/ZIP Co de Phone Number [facility] [place] [address] * (ABNORMAL) POC Blood Gas and Chemistries, Arterial - (06/07/2022 1:31 PM CDT) pH, Art POC 7.16(C) 7.35 - 7.45 [facility] pCO2, Art POC 53(H) 35 - 45 mmHg [facility] pO2, Art POC 41(L) 83 - 108 mmHg [facility] Na, POC 130(L) 135 - 145 mmol/L [facility] K POC 3.5 3.3 - 4.9 mmol/L [facility] Comment: Interpretive Data This method is not able to assess for hemolysis, which may falsely increase potassium concentrations. If further testing is needed to evaluate this result, consider in-laboratory plasma potassium. Current Interpretive Data was last revised on 2022. Cl, POC 93(L) 97 - 110 mmol/L [facility] Ionized Ca, POC 4.29(L) 4.50 - 5.10 mg/dL [facility] Glucose, POC 300(H) 70 - 199 mg/dL [facility] Lactate, POC 5.3(C) 0.7 - 2.2 mmol/L [facility] SO2 (uyen) arterial 59(C) 90 - 95 % [facility] Base excess, POC -10.1 mmol/L [facility] HCO3, Art POC 19(L) 20 - 30 mmol/L [facility] Hct, POC 31.0(L) 41.4 - 51.6 % [facility] O2 Sat, Art POC (Calc) 60 % [facility] Total Hb, POC 10.2(L) 13.8 - 17.2 g/dL [facility] Blood 06/07/2022 1:31 PM CDT 06/07/2022 1:31 PM CDT us Conrad Weston Chi, MD LAB POCT ORDERABLES - DEV ICE Final Result Performing Organization Address [facility] Co de Phone Number [facility] [place] [address] * (ABNORMAL) POCT Activated clotting time, low range (06/07/2022 12:47 PM CDT) ACT 289(H) 123 - 168 sec [facility] Blood 06/07/2022 12:4 7 PM CDT 06/07/2022 12:47 PM CDT Catherine Adams MD LAB POCT ORDERABLES - DEVIC E Final Result Performing Organization Address City/[facility]/ZIP Co de Phone Number [facility] [place] [address] * (ABNORMAL) POCT Activated clotting time, low range (06/07/2022 12:32 PM CDT) [facility] ACT 249(H) 123 - 168 sec [facility] Blood 06/07/2022 12:3 2 PM CDT 06/07/2022 12:32 PM CDT Catherine Adams MD LAB POCT ORDERABLES - DEVIC E Final Result Performing Organization Address City/[facility]/ZIP Co de Phone Number [facility] [place] [address] * POCT glucose (06/07/2022 11:27 AM CDT) [facility] Glucose, POC 179 70 - 199 mg/dL [facility] Blood 06/07/2022 11:2 7 AM CDT 06/07/2022 11:27 AM CDT Conrad Weston Chi, MD LAB POCT ORDERABLES - DEV ICE Final Result Performing Organization Address [facility] Co de Phone Number [facility] [place] [address] * (ABNORMAL) aPTT (06/07/2022 9:59 AM CDT) [facility] aPTT 71(H) 27 - 37 sec [facility] Comment: Interpretive Data Therapeutic heparin range: 60.0 - 94.0 seconds. Based on correlation with therapeutic heparin activity range of 0.3-0.7 Units/mL. Current interpretive data was last revised on 2020. Blood 06/07/2022 9:59 AM CDT 06/07/2022 10:19 AM CDT Narrative [facility] - 06/07/2022 10:46 AM CDT [...] Ann Marie l Result Performing Organization Address [facility] Co de Phone Number [place] [address] * (ABNORMAL) POCT glucose (06/07/2022 7:59 AM CDT) Glucose, POC 247(H) 70 - 199 mg/dL [facility] Blood 06/07/2022 7:59 AM CDT 06/07/2022 7:59 AM CDT Conrad Weston Chi, MD LAB POCT ORDERABLES - DEV ICE Final Result Performing Organization Address [facility] de Phone Number [place] [address] * (ABNORMAL) POCT glucose (06/07/2022 4:17 AM CDT) Glucose, POC 239(H) 70 - 199 mg/dL [facility] Blood 06/07/2022 4:17 AM CDT 06/07/2022 4:17 AM CDT Conrad Weston Chi, MD LAB POCT ORDERABLES - DEV ICE Final Result Performing Organization Address [facility] Co de Phone Number [place] [address] * (ABNORMAL) aPTT (06/07/2022 4:17 AM CDT) aPTT 57(H) 27 - 37 sec [facility] Comment: Interpretive Data Therapeutic heparin range: 60.0 - 94.0 seconds. Based on correlation with therapeutic heparin activity range of 0.3-0.7 Units/mL. Current interpretive data was last revised on 2020. Blood 06/07/2022 4:17 AM CDT 06/07/2022 4:37 AM CDT Narrative [facility] - 06/07/2022 5:01 AM CDT [...] Ann Marie l Result Performing Organization Address [facility] Co de Phone Number [facility] [place] [address] * POCT glucose (06/06/2022 11:51 PM CDT) Glucose, POC 170 70 - 199 mg/dL [facility] Blood 06/06/2022 11:5 1 PM CDT 06/06/2022 11:51 PM CDT Conrad Weston Chi, MD LAB POCT ORDERABLES - DEV ICE Final Result Performing Organization Address [facility] de Phone Number [facility] [place] [address] * POCT glucose (06/06/2022 8:18 PM CDT) Glucose, POC 123 70 - 199 mg/dL [facility] Blood 06/06/2022 8:18 PM CDT 06/06/2022 8:18 PM CDT Conrad Weston Chi, MD LAB POCT ORDERABLES - DEV ICE Final Result Performing Organization Address [facility] Co de Phone Number [facility] [place] [address] * (ABNORMAL) eGFR (06/06/2022 8:16 PM CDT) Pathologist [facility] eGFR 5(L) 90 - 130 mL/min/1. 73 m2 [facility] Comment: Interpretive Data Reference Interval [...] LAB BLOOD ORDERABLES Ann Marie kramer Result [facility] Department [place] [address] * (ABNORMAL) Differential, auto (06/06/2022 8:16 PM CDT) Neutrophil abs 9.8(H) 1.7 - 6.5 K/cumm [facility] Imm gran abs 0.2(H) 0.0 - 0.1 K/cumm [facility] Lymphocyte abs 0.7(L) 0.8 - 3.3 K/cumm [facility] Monocyte abs 0.9(H) 0.2 - 0.8 K/cumm [facility] Eosinophil abs 0.1 0.0 - 0.5 K/cumm [facility] Basophil abs 0.0 0.0 - 0.1 K/cumm [facility] Neutrophil pct 84.4 % [facility] Comment: Interpretive Data Percent cell count reference ranges are not reported, since discordance with absolute values may lead to misinterpretation of CBC data. Current Interpretive Data was last revised on 2017. Imm gran pct 1.3 % [facility] Comment: Interpretive Data Percent cell count reference ranges are not reported, since discordance with absolute values may lead to misinterpretation of CBC data. Current Interpretive Data was last revised on 2017. Lymphocyte pct 6.0 % [facility] Comment: Interpretive Data Percent cell count reference ranges are not reported, since discordance with absolute values may lead to misinterpretation of CBC data. Current Interpretive Data was last revised on 2017. Monocyte pct 7.6 % [facility] Comment: Interpretive Data Percent cell count reference ranges are not reported, since discordance with absolute values may lead to misinterpretation of CBC data. Current Interpretive Data was last revised on 2017. Eosinophil pct 0.5 % [facility] Comment: Interpretive Data Percent cell count reference ranges are not reported, since discordance with absolute values may lead to misinterpretation of CBC data. Current Interpretive Data was last revised on 2017. Basophil pct 0.2 % [facility] Comment: Interpretive Data Percent cell count reference ranges are not reported, since discordance with absolute values may lead to misinterpretation of CBC data. Current Interpretive Data was last revised on 2017. Blood 06/06/2022 8:16 PM CDT 06/06/2022 8:41 PM CDT Conrad Weston Chi, MD LAB BLOOD ORDERABLES Ann Marie l Result Performing Organization Address [facility] Co de Phone Number [facility] [place] [address] * (ABNORMAL) Phosphorus (06/06/2022 8:16 PM CDT) Pathologist [facility] Phosphorus, pl 6.6(H) 2.3 - 4.5 mg/dL [facility] Blood 06/06/2022 8:16 PM CDT 06/06/2022 8:41 PM CDT Conrad Weston Chi, MD LAB BLOOD ORDERABLES Ann Marie l Result Performing Organization Address [facility] de Phone Number [facility] [place] [address] * Magnesium (06/06/2022 8:16 PM CDT) Pathologist [facility] Magnesium 2.1 1.4 - 2.5 mg/dL [facility] Blood 06/06/2022 8:16 PM CDT 06/06/2022 8:41 PM CDT Conrad Weston Chi, MD LAB BLOOD ORDERABLES Ann Marie l Result Performing Organization Address [facility] de Phone Number [facility] [place] [address] * (ABNORMAL) CBC with auto differential (06/06/2022 8:16 PM CDT) WBC 11.6(H) 3.8 - 9.9 K/cumm [facility] Hgb 9.3(L) 13.0 - 17.5 g/dL [facility] Hct 26.4(L) 38.9 - 50.3 % [facility] Plt 207 150 - 400 K/cumm [facility] MPV 11.1 9.1 - 12.3 fL [facility] RBC 2.99(L) 4.30 - 5.80 M/cumm [facility] MCV 88.3 81.3 - 96.4 fL [facility] MCH 31.1 27.1 - 33.3 pg [facility] MCHC 35.2 32.3 - 35.7 g/dL [facility] RDW CV 13.1 11.1 - 14.9 % [facility] RDW SD 42.2 35.7 - 48.1 fL [facility] NRBC abs 0.00 0.00 - 0.01 K/cumm [facility] Blood 06/06/2022 8:16 PM CDT 06/06/2022 8:41 PM CDT us Conrad Weston Chi, MD LAB BLOOD ORDERABLES Ann Marie l Result [facility] Department [place] [address] * (ABNORMAL) Comprehensive metabolic panel (06/06/2022 8:16 PM CDT) Sodium 132(L) 135 - 145 mmol/L [facility] Potassium, pl 3.4 3.3 - 4.9 mmol/L [facility] Chloride 89(L) 97 - 110 mmol/L [facility] CO2 25 22 - 32 mmol/L [facility] Anion gap 18(H) 2 - 15 mmol/L [facility] BUN 82(H) 8 - 25 mg/dL [facility] Creatinine 10.45(H) 0.80 - 1.30 mg/dL [facility] Glucose 112 70 - 199 mg/dL [facility] Comment: Interpretive Data Fasting glucose [...] 2017. Calcium 7.5(L) 8.5 - 10.3 mg/dL [facility] Bilirubin, total 0.7 0.1 - 1.2 mg/dL [facility] Protein, pl 6.5 6.5 - 8.5 g/dL [facility] Albumin 3.2(L) 3.5 - 5.0 g/dL [facility] Alk phos 135(H) 40 - 130 Units/L [facility] ALT 40 7 - 55 Units/L [facility] AST 45 10 - 50 Units/L [facility] Blood 06/06/2022 8:16 PM CDT 06/06/2022 8:41 PM CDT Conrad Weston Chi, MD LAB BLOOD ORDERABLES Ann Marie l Result Performing Organization Address City/[facility]/ZIP Co de Phone Number [facility] Department [place] [address] * POCT glucose (06/06/2022 5:53 PM CDT) Glucose, POC 99 70 - 199 mg/dL [facility] Blood 06/06/2022 5:53 PM CDT 06/06/2022 5:53 PM CDT Conrad Weston Chi, MD LAB POCT ORDERABLES - DEV ICE Final Result [facility] [place] [address] * POCT glucose (06/06/2022 11:38 AM CDT) Glucose, POC 108 70 - 199 mg/dL [facility] Blood 06/06/2022 11:3 8 AM CDT 06/06/2022 11:38 AM CDT Conrad Weston Chi, MD LAB POCT ORDERABLES - DEV ICE Final Result Performing Organization Address City/[facility] Co de Phone Number [facility] [place] [address] * (ABNORMAL) aPTT (06/06/2022 10:26 AM CDT) aPTT 71(H) 27 - 37 sec [facility] Comment: Interpretive Data Therapeutic heparin range: 60.0 - 94.0 seconds. Based on correlation with therapeutic heparin activity range of 0.3-0.7 Units/mL. Current interpretive data was last revised on 2020. Blood 06/06/2022 10:2 6 AM CDT 06/06/2022 10:37 AM CDT Narrative [facility] - 06/06/2022 11:02 AM CDT [...] Ann Marie l Result Performing Organization Address [facility] Co de Phone Number [place] [address] * POCT glucose (06/06/2022 8:06 AM CDT) Glucose, POC 109 70 - 199 mg/dL [facility] Blood 06/06/2022 8:06 AM CDT 06/06/2022 8:06 AM CDT Conrad Weston Chi, MD LAB POCT ORDERABLES - DEV ICE Final Result Performing Organization Address City/[facility] Co de Phone Number [facility] [place] [address] * XR Chest 1 View (06/06/2022 4:45 [...] Glucose, POC 164 70 - 199 mg/dL [facility] Blood 06/06/2022 3:49 AM CDT 06/06/2022 3:49 AM CDT Conrad Weston Chi, MD LAB POCT ORDERABLES - DEV ICE Final Result Performing Organization Address [facility] de Phone Number [facility] [place] [address] * (ABNORMAL) aPTT (06/06/2022 3:41 AM CDT) aPTT 65(H) 27 - 37 sec [facility] Comment: Interpretive Data Therapeutic heparin range: 60.0 - 94.0 seconds. Based on correlation with therapeutic heparin activity range of 0.3-0.7 Units/mL. Current interpretive data was last revised on 2020. Blood 06/06/2022 3:41 AM CDT 06/06/2022 4:23 AM CDT Narrative [facility] - 06/06/2022 4:32 AM CDT [...] Ann Marie l Result Performing Organization Address [facility] de Phone Number [facility] Department [place] [address] * (ABNORMAL) Blood gas, arterial (06/06/2022 1:14 AM CDT) pH, Art 7.39 7.35 - 7.45 [facility] PCO2, Arterial 37 35 - 45 mmHg [facility] PO2, Arterial 169(H) 83 - 108 mmHg [facility] HCO3 Art (Calculated) 23 20 - 30 mmol/L [facility] BE, art -2 mmol/L [facility] Comment: Interpretive Data No Reference Range Established Current Interpretive Data was last revised on 2017 O2 Sat Art (Measured) 99(H) 90 - 95 % [facility] Blood 06/06/2022 1:14 AM CDT 06/06/2022 1:29 AM CDT Conrad Weston Chi, MD LAB BLOOD ORDERABLES Ann Marie l Result Performing Organization Address [facility] Co de Phone Number [facility] Department [place] [address] * POCT glucose (06/06/2022 12:01 AM CDT) Glucose, POC 192 70 - 199 mg/dL [facility] Blood 06/06/2022 12:0 1 AM CDT 06/06/2022 12:01 AM CDT Conrad Weston Chi, MD LAB POCT ORDERABLES - DEV ICE Final Result Performing Organization Address [facility] de Phone Number [facility] [place] [address] * XR Abdomen Ap 1 Vw (06/05/2022 11:30 PM CDT) Anatomical Region Laterality Modality Body, Abdomen N/A Computed Radiogr aphy 06/06/2022 9:30 AM CDT Impressions 06/06/2022 11:54 AM CDT A single view of the abdomen is submitted for evaluation. The pelvis is excluded from the [id number] and unavailable for interpretation. ??A rounded density [...] evaluation. The pelvis is excluded from the [id number] and unavailable for interpretation. A rounded density [...] * POCT glucose (06/05/2022 9:13 PM CDT) [facility] Glucose, POC 195 70 - 199 mg/dL [facility] Blood 06/05/2022 9:13 PM CDT 06/05/2022 9:13 PM CDT Conrad Weston Chi, MD LAB POCT ORDERABLES - DEV ICE Final Result [facility] [place] [address] * (ABNORMAL) eGFR (06/05/2022 8:47 PM CDT) [facility] eGFR 6(L) 90 - 130 mL/min/1. 73 m2 [facility] Comment: Interpretive Data Reference Interval [...] 8:47 PM CDT 06/05/2022 9:46 PM CDT Champ Osborne MD PhD LAB BLOOD ORDERABLES Final Result [facility] Department [place] [address] * (ABNORMAL) Urinalysis, microscopic only (06/05/2022 8:47 PM CDT) WBC, ur 6-10(A) 0 - 5 /HPF [facility] RBC, ur >50(A) 0 - 2 /HPF [facility] Epithelial cells, squamous, ur 1-5 0 - 5 /HPF [facility] Epithelial cells, transitional, ur 1-5 0 - 0 /HPF [facility] Bacteria, ur 2+(A) [facility] Mucous, ur Present(A) [facility] Hyaline casts, ur 11-20(A) 0 - 10 /LPF [facility] Culture Reflex Comment Reflex conditions for urine culture (WBC >10) not met. [facility] Urine 06/05/2022 8:47 PM CDT 06/05/2022 9:32 PM CDT us Conrad Weston Chi, MD LAB URINE ORDERABLES Ann Marie kramer Result [facility] [place] [address] * (ABNORMAL) Differential, auto (06/05/2022 8:47 PM CDT) Neutrophil abs 7.7(H) 1.7 - 6.5 K/cumm [facility] Imm gran abs 0.1 0.0 - 0.1 K/cumm [facility] Lymphocyte abs 0.5(L) 0.8 - 3.3 K/cumm [facility] Monocyte abs 0.7 0.2 - 0.8 K/cumm [facility] Eosinophil abs 0.0 0.0 - 0.5 K/cumm [facility] Basophil abs 0.0 0.0 - 0.1 K/cumm [facility] Neutrophil pct 85.3 % [facility] Comment: Interpretive Data Percent cell count reference ranges are not reported, since discordance with absolute values may lead to misinterpretation of CBC data. Current Interpretive Data was last revised on 2017. Imm gran pct 1.3 % [facility] Comment: Interpretive Data Percent cell count reference ranges are not reported, since discordance with absolute values may lead to misinterpretation of CBC data. Current Interpretive Data was last revised on 2017. Lymphocyte pct 5.8 % [facility] Comment: Interpretive Data Percent cell count reference ranges are not reported, since discordance with absolute values may lead to misinterpretation of CBC data. Current Interpretive Data was last revised on 2017. Monocyte pct 7.5 % [facility] Comment: Interpretive Data Percent cell count reference ranges are not reported, since discordance with absolute values may lead to misinterpretation of CBC data. Current Interpretive Data was last revised on 2017. Eosinophil pct 0.0 % [facility] Comment: Interpretive Data Percent cell count reference ranges are not reported, since discordance with absolute values may lead to misinterpretation of CBC data. Current Interpretive Data was last revised on 2017. Basophil pct 0.1 % [facility] Comment: Interpretive Data Percent cell count reference ranges are not reported, since discordance with absolute values may lead to misinterpretation of CBC data. Current Interpretive Data was last revised on 2017. Blood 06/05/2022 8:47 PM CDT 06/05/2022 9:45 PM CDT Champ Osborne MD PhD LAB BLOOD ORDERABLES Final Result Performing Organization Address [facility] Co de Phone Number [facility] [place] [address] * (ABNORMAL) Blood gas, arterial (06/05/2022 8:47 PM CDT) Pathologist [facility] pH, Art 7.38 7.35 - 7.45 [facility] PCO2, Arterial 37 35 - 45 mmHg [facility] PO2, Arterial 76(L) 83 - 108 mmHg [facility] HCO3 Art (Calculated) 22 20 - 30 mmol/L [facility] BE, art -3 mmol/L [facility] Comment: Interpretive Data No Reference Range Established Current Interpretive Data was last revised on 2017 O2 Sat Art (Measured) 94 90 - 95 % [facility] Blood 06/05/2022 8:47 PM CDT 06/05/2022 9:32 PM CDT Result [facility] Conrad Weston Chi, MD LAB BLOOD ORDERABLES Ann Marie l Result Performing Organization Address [facility] Co de Phone Number [facility] Department [place] [address] * (ABNORMAL) Troponin I high-sensitivity (06/05/2022 8:47 PM CDT) [facility] Trop I hs 3,996(C) <=35 ng/L [facility] Comment: Previous critical value noted within 48 hours ago. Interpretive Data For further [facility] resources including the diagnostic algorithm and an aid in interpretation, copy and paste this link: [email or web address] Current Interpretive Data last revised 2020. Blood 06/05/2022 8:47 PM CDT 06/05/2022 9:47 PM CDT Conrad Weston Chi, MD LAB BLOOD ORDERABLES Ann Marie l Result [facility] [place] [address] * (ABNORMAL) Urinalysis reflex to microscopic and culture Urine (06/05/2022 8:47 PM CDT) Color, ur Yellow Yellow [facility] Clarity, ur Cloudy(A) Clear [facility] Specific gravity, ur 1.037(H) 1.003 - 1.030 [facility] pH, urine 6.0 [facility] Protein, ur ql 3+(A) Negative [facility] Glucose, ur ql 3+(A) Negative [facility] Ketones, ur Negative Negative [facility] Bilirubin, ur Negative Negative [facility] Blood, ur 3+(A) Negative [facility] Urobilinogen, ur <2.0 <2.0 mg/dL [facility] Nitrite, ur Negative Negative [facility] Leukocyte esterase, ur Negative Negative [facility] UA reflex comment Reflex to microscopic UA will be performed. [facility] Urine 06/05/2022 8:47 PM CDT 06/05/2022 8:47 PM CDT Narrative [facility] - 06/05/2022 9:49 PM CDT ?? Urine pH is affected by diet, medications, systemic acid-base disturbances, and renal tubular function. ??pH may affect urinary stone formation. ??For example, urine pH below 6.0 may help reduce the tendency for calcium phosphate stones and pH greater than 6.0 may reduce the tendency for uric acid stone formation. Source: docplanner. Last revised 08-31-2017 us Conrad Weston Chi, MD LAB MICROBIOLOGY - GENERA L ORDERABLES Final Result Performing Organization Address [facility] Co de Phone Number [facility] [place] [address] * (ABNORMAL) Phosphorus (06/05/2022 8:47 PM CDT) [facility] Phosphorus, pl 6.5(H) 2.3 - 4.5 mg/dL [facility] Blood 06/05/2022 8:47 PM CDT 06/05/2022 9:46 PM CDT Conrad Weston Chi, MD LAB BLOOD ORDERABLES Ann Marie l Result Performing Organization Address [facility] Co de Phone Number [facility] [place] [address] * Magnesium (06/05/2022 8:47 PM CDT) [facility] Magnesium 1.9 1.4 - 2.5 mg/dL [facility] Blood 06/05/2022 8:47 PM CDT 06/05/2022 9:46 PM CDT Conrad Weston Chi, MD LAB BLOOD ORDERABLES Ann Marie l Result Performing Organization Address [facility] Co de Phone Number [facility] Department [place] [address] * (ABNORMAL) CBC with auto differential (06/05/2022 8:47 PM CDT) [facility] WBC 9.1 3.8 - 9.9 K/cumm [facility] Hgb 9.3(L) 13.0 - 17.5 g/dL [facility] Hct 26.0(L) 38.9 - 50.3 % [facility] Plt 201 150 - 400 K/cumm [facility] MPV 11.3 9.1 - 12.3 fL [facility] RBC 2.95(L) 4.30 - 5.80 M/cumm [facility] MCV 88.1 81.3 - 96.4 fL [facility] MCH 31.5 27.1 - 33.3 pg [facility] MCHC 35.8(H) 32.3 - 35.7 g/dL [facility] RDW CV 12.6 11.1 - 14.9 % [facility] RDW SD 40.7 35.7 - 48.1 fL [facility] NRBC abs 0.00 0.00 - 0.01 K/cumm [facility] Blood 06/05/2022 8:47 PM CDT 06/05/2022 9:45 PM CDT us Conrad Weston Chi, MD LAB BLOOD ORDERABLES Ann Marie kramer Result [facility] [place] [address] * (ABNORMAL) Comprehensive metabolic panel (06/05/2022 8:47 PM CDT) Sodium 132(L) 135 - 145 mmol/L [facility] Potassium, pl 3.6 3.3 - 4.9 mmol/L [facility] Chloride 90(L) 97 - 110 mmol/L [facility] CO2 25 22 - 32 mmol/L [facility] Anion gap 17(H) 2 - 15 mmol/L [facility] BUN 84(H) 8 - 25 mg/dL [facility] Creatinine 9.77(H) 0.80 - 1.30 mg/dL [facility] Glucose 180 70 - 199 mg/dL [facility] Comment: Interpretive Data Fasting glucose [...] 2017. Calcium 7.8(L) 8.5 - 10.3 mg/dL [facility] Bilirubin, total 0.6 0.1 - 1.2 mg/dL [facility] Protein, pl 6.3(L) 6.5 - 8.5 g/dL [facility] Albumin 3.4(L) 3.5 - 5.0 g/dL [facility] Alk phos 126 40 - 130 Units/L [facility] ALT 43 7 - 55 Units/L [facility] AST 46 10 - 50 Units/L [facility] Blood 06/05/2022 8:47 PM CDT 06/05/2022 9:46 PM CDT Conrad Weston Chi, MD LAB BLOOD ORDERABLES Ann Marie l Result Performing Organization Address [facility] de Phone Number [facility] Department [place] [address] * Cell Differential, Body Fluid (06/05/2022 8:36 PM CDT) Total cells diffed 100 cells [facility] Comment: Interpretive Data Unless otherwise specified, the reference range and other method performance specifications have not been established for CSF/Body Fluid tests. ??The test results should be integrated into the clinical context for interpretation. Current interpretive data was last revised on 2019. Neutrophils, fld 4 % [facility] Lymphs, fld 9 % [facility] Monocyte, fld 68 % [facility] Macrophages, fld 18 % [facility] Mesothelial cells, fld 1 % [facility] Fluid 06/05/2022 8:36 PM CDT 06/05/2022 9:01 PM CDT Conrad Weston Chi, MD LAB BODY FLUIDS AND STOOL S ORDERABLES Final Result Performing Organization Address [facility] Co de Phone Number [facility] [place] [address] * Aerobic and anaerobic culture and gram stain Peritoneal dialysis fluid Abdominal (06/05/2022 8:36 PM CDT) Direct Specimen Exam Stain: Cytospin Gram stain shows: No polymorphonuclear leukocytes seen. Other cellular material present. No organisms seen. [facility] Report Final Report: No growth [facility] Peritoneal dialysis fluid (Abdominal) 06/05/2022 8:36 PM CDT 06/05/2022 11:56 PM CDT Narrative [facility] - 06/11/2022 1:37 PM CDT Testing performed by [facility] ([phone]) Specimens submitted from normally sterile body sites [...] - GENERA L ORDERABLES Final Result [facility] [place] [address] * Cell count with reflex to differential, body fluid (06/05/2022 8:36 PM CDT) Specimen type, fld Peritoneal [facility] Color, fld Straw [facility] Clarity, fld Clear Clear [facility] Nucleated cells, fld 11 /cumm [facility] Comment: Interpretive Data Unless otherwise specified, the reference range and other method performance specifications have not been established for CSF/Body Fluid tests. ??The test results should be integrated into the clinical context for interpretation. Current interpretive data was last revised on 2019. RBC, fld 0 /cumm [facility] Fluid 06/05/2022 8:36 PM CDT 06/05/2022 9:01 PM CDT Conrad Weston Chi, MD LAB BODY FLUIDS AND STOOL S ORDERABLES Final Result Performing Organization Address [facility] Co de Phone Number [place] [address] * Lipase (06/05/2022 6:39 PM CDT) Lipase 14 10 - 99 Units/L [facility] Blood 06/05/2022 6:39 PM CDT 06/05/2022 6:53 PM CDT Conrad Weston Chi, MD LAB BLOOD ORDERABLES Ann Marie l Result Performing Organization Address [facility] [place] [address] * (ABNORMAL) aPTT (06/05/2022 6:34 PM CDT) aPTT 38(H) 27 - 37 sec [facility] Comment: Interpretive Data Therapeutic heparin range: 60.0 - 94.0 seconds. Based on correlation with therapeutic heparin activity range of 0.3-0.7 Units/mL. Current interpretive data was last revised on 2020. Blood 06/05/2022 6:34 PM CDT 06/05/2022 6:40 PM CDT Conrad Weston Chi, MD LAB BLOOD ORDERABLES Ann Marie l Result Performing Organization Address [facility] [place] [address] * US RUQ (06/05/2022 6:12 PM CDT) [...] POC 275(H) 70 - 199 mg/dL [facility] Blood 06/05/2022 5:07 PM CDT 06/05/2022 5:07 PM CDT us Conrad Weston Chi, MD LAB POCT ORDERABLES - DEV ICE Final Result [facility] [place] [address] * Blood culture Blood Antecubital, left (06/05/2022 5:06 PM CDT) Report Final Report: No growth [facility] Blood (Antecubital, left) 06/05/2022 5:06 PM CDT 06/05/2022 5:21 PM CDT Narrative [facility] - 06/10/2022 7:01 AM CDT From a [...] organism identification may be performed using the [employer] Gram-Positive Blood Culture Assay. This assay detects microbial DNA in positive blood culture broth via hybridization of target DNA to capture oligonucleotides on a microarray. This assay has been cleared by the [place] Food and Drug Administration and its performance characteristics have been verified by the [facility] Microbiology Laboratory. 5. ?For questions about this culture, contact the Microbiology Laboratory at [phone]. Interpretive data was last revised on 2020. Conrad Weston Chi, MD LAB MICROBIOLOGY - GENERA L ORDERABLES Final Result [facility] Department [place] [address] * Blood culture Blood Antecubital, right (06/05/2022 5:06 PM CDT) Report Final Report: No growth [facility] Blood (Antecubital, right) 06/05/2022 5:06 PM CDT 06/05/2022 5:21 PM CDT Narrative [facility] - 06/10/2022 7:01 AM CDT 1. ?Blood [...] organism identification may be performed using the [employer] Gram-Positive Blood Culture Assay. This assay detects microbial DNA in positive blood culture broth via hybridization of target DNA to capture oligonucleotides on a microarray. This assay has been cleared by the [place] Food and Drug Administration and its performance characteristics have been verified by the [facility] Microbiology Laboratory. 5. ?For questions about this culture, contact the Microbiology Laboratory at [phone]. Interpretive data was last revised on 2020. Conrad Weston Chi, MD LAB MICROBIOLOGY - GENERA L ORDERABLES Final Result Performing Organization Address City/[facility] Co de Phone Number [facility] Department [place] [address] * (ABNORMAL) Troponin I high-sensitivity (06/05/2022 4:07 PM CDT) Trop I hs 4,266(C) <=35 ng/L [facility] Comment: Previous critical value noted within 48 hours ago. Interpretive Data For further hscTnI resources including the diagnostic algorithm and an aid in interpretation, copy and paste this link: https://bjhlab.testcatalog.org/show/hsTrop-1 Current Interpretive Data last revised 2020. Blood 06/05/2022 4:07 PM CDT 06/05/2022 4:27 PM CDT Conrad Weston Chi, MD LAB BLOOD ORDERABLES Ann Marie l Result [facility] Department [place] [address] * (ABNORMAL) eGFR (06/05/2022 3:54 PM CDT) Pathologist [facility] eGFR 6(L) 90 - 130 mL/min/1. 73 m2 [facility] Comment: Interpretive Data Reference Interval [...] BLOOD ORDERABLES Final Result Performing Organization Address [facility]/State/ZIP Co de Phone Number [facility] [place] [address] * (ABNORMAL) Differential, auto (06/05/2022 3:54 PM CDT) Neutrophil abs 9.2(H) 1.7 - 6.5 K/cumm [facility] Imm gran abs 0.1 0.0 - 0.1 K/cumm [facility] Lymphocyte abs 0.6(L) 0.8 - 3.3 K/cumm [facility] Monocyte abs 0.8 0.2 - 0.8 K/cumm [facility] Eosinophil abs 0.0 0.0 - 0.5 K/cumm [facility] Basophil abs 0.0 0.0 - 0.1 K/cumm [facility] Neutrophil pct 86.0 % [facility] Comment: Interpretive Data Percent cell count reference ranges are not reported, since discordance with absolute values may lead to misinterpretation of CBC data. Current Interpretive Data was last revised on 2017. Imm gran pct 0.8 % [facility] Comment: Interpretive Data Percent cell count reference ranges are not reported, since discordance with absolute values may lead to misinterpretation of CBC data. Current Interpretive Data was last revised on 2017. Lymphocyte pct 5.6 % [facility] Comment: Interpretive Data Percent cell count reference ranges are not reported, since discordance with absolute values may lead to misinterpretation of CBC data. Current Interpretive Data was last revised on 2017. Monocyte pct 7.4 % [facility] Comment: Interpretive Data Percent cell count reference ranges are not reported, since discordance with absolute values may lead to misinterpretation of CBC data. Current Interpretive Data was last revised on 2017. Eosinophil pct 0.1 % [facility] Comment: Interpretive Data Percent cell count reference ranges are not reported, since discordance with absolute values may lead to misinterpretation of CBC data. Current Interpretive Data was last revised on 2017. Basophil pct 0.1 % [facility] Comment: Interpretive Data Percent cell count reference ranges are not reported, since discordance with absolute values may lead to misinterpretation of CBC data. Current Interpretive Data was last revised on 2017. Blood 06/05/2022 3:54 PM CDT 06/05/2022 4:27 PM CDT Champ Osborne MD PhD LAB BLOOD ORDERABLES Final Result Performing Organization Address [facility] [place] [address] * Type and screen (06/05/2022 3:54 PM CDT) ABO Rh A Positive [facility] Maribel, indirect Negative [facility] Blood 06/05/2022 3:54 PM CDT 06/05/2022 4:18 PM CDT Narrative [facility] - 06/05/2022 5:07 PM CDT Has the patient had Daratumumab or Isatuximab in the past 6 months?->Unknown Champ Osborne MD PhD LAB BLOOD BANK TEST ORDERA BLES Final Result Performing Organization Address [facility] [place] [address] * (ABNORMAL) aPTT (06/05/2022 3:54 PM CDT) Pathologist [facility] aPTT 45(H) 27 - 37 sec [facility] Comment: Interpretive Data Therapeutic heparin range: 60.0 - 94.0 seconds. Based on correlation with therapeutic heparin activity range of 0.3-0.7 Units/mL. Current interpretive data was last revised on 2020. Blood (Blood, Venous) 06/05/2022 3:54 PM CDT 06/05/2022 4:16 PM CDT Champ Osborne MD PhD LAB BLOOD ORDERABLES Final Result Performing Organization Address [facility] [place] [address] * Protime-INR (06/05/2022 3:54 PM CDT) PT 10.8 9.2 - 13.5 sec [facility] INR 1.0 0.9 - 1.2 [facility] Comment: Interpretive data Oral anticoagulant [...] MD PhD LAB BLOOD ORDERABLES Final Result [facility] [place] [address] * (ABNORMAL) CBC with auto differential (06/05/2022 3:54 PM CDT) WBC 10.7(H) 3.8 - 9.9 K/cumm [facility] Hgb 10.3(L) 13.0 - 17.5 g/dL [facility] Hct 29.1(L) 38.9 - 50.3 % [facility] Plt 238 150 - 400 K/cumm [facility] MPV 11.1 9.1 - 12.3 fL [facility] RBC 3.32(L) 4.30 - 5.80 M/cumm [facility] MCV 87.7 81.3 - 96.4 fL [facility] MCH 31.0 27.1 - 33.3 pg [facility] MCHC 35.4 32.3 - 35.7 g/dL [facility] RDW CV 12.5 11.1 - 14.9 % [facility] RDW SD 40.3 35.7 - 48.1 fL [facility] NRBC abs 0.00 0.00 - 0.01 K/cumm [facility] Blood 06/05/2022 3:54 PM CDT 06/05/2022 4:27 PM CDT Champ Osborne MD PhD LAB BLOOD ORDERABLES Final Result Performing Organization Address City/[facility]/ZIP Co de Phone Number [facility] [place] [address] * Lactate (06/05/2022 3:54 PM CDT) Pathologist [facility] Lactate 1.6 0.7 - 2.0 mmol/L [facility] Blood 06/05/2022 3:54 PM CDT 06/05/2022 4:27 PM CDT Champ Osborne MD PhD LAB BLOOD ORDERABLES Final Result Performing Organization Address [facility] Co de Phone Number [facility] Department [place] [address] * (ABNORMAL) Basic metabolic panel (06/05/2022 3:54 PM CDT) Pathologist [facility] Sodium 132(L) 135 - 145 mmol/L [facility] Potassium, pl 4.1 3.3 - 4.9 mmol/L [facility] Chloride 87(L) 97 - 110 mmol/L [facility] CO2 26 22 - 32 mmol/L [facility] Anion gap 19(H) 2 - 15 mmol/L [facility] BUN 81(H) 8 - 25 mg/dL [facility] Creatinine 9.08(H) 0.80 - 1.30 mg/dL [facility] Glucose 276(H) 70 - 199 mg/dL [facility] Comment: Interpretive Data Fasting glucose [...] 2017. Calcium 8.1(L) 8.5 - 10.3 mg/dL [facility] Blood 06/05/2022 3:54 PM CDT 06/05/2022 4:27 PM CDT us Champ Osborne MD PhD LAB BLOOD ORDERABLES Final Result Performing Organization Address [facility]/ZIP Co de Phone Number [facility] Department [place] [address] * (ABNORMAL) POCT glucose (06/05/2022 3:46 PM CDT) Glucose, POC 279(H) 70 - 199 mg/dL [facility] Blood 06/05/2022 3:46 PM CDT 06/05/2022 3:46 PM CDT us Conrad Weston Chi, MD LAB POCT ORDERABLES - DEV ICE Final Result Performing Organization Address [facility] Co de Phone Number [facility] [place] [address] * (ABNORMAL) eGFR (06/05/2022 3:22 PM CDT) eGFR 6(L) 90 - 130 mL/min/1. 73 m2 [facility] Comment: Interpretive Data Reference Interval [...] BLOOD ORDERABLES Final Result Performing Organization Address [facility] Co de Phone Number [facility] [place] [address] * (ABNORMAL) POCT [id number], WB - ISTAT (06/05/2022 3:22 PM CDT) Na POC 126(L) 135 - 145 mmol/L [facility] K POC 3.6 3.3 - 4.9 mmol/L [facility] Comment: Interpretive Data This method is not able to assess for hemolysis, which may falsely increase potassium concentrations. If further testing is needed to evaluate this result, consider in-laboratory plasma potassium. Current Interpretive Data was last revised on 2022. Glucose POC i-STAT 287(H) 70 - 199 mg/dL [facility] Hct, POC 30.0(L) 38.9 - 50.3 % [facility] Blood 06/05/2022 3:22 PM CDT 06/05/2022 3:22 PM CDT us Champ Osborne MD PhD LAB POCT ORDERABLES - APRIL CE Final Result Performing Organization Address City/[facility]/ZIP Co de Phone Number [facility] Department [place] [address] * Magnesium (06/05/2022 3:22 PM CDT) Pathologist [facility] Magnesium 2.1 1.4 - 2.5 mg/dL [facility] Blood 06/05/2022 3:22 PM CDT 06/05/2022 3:59 PM CDT Champ Osborne MD PhD LAB BLOOD ORDERABLES Final Result [facility] Department [place] [address] * (ABNORMAL) Basic metabolic panel (06/05/2022 3:22 PM CDT) Pathologist [facility] Sodium 127(L) 135 - 145 mmol/L [facility] Potassium, pl 3.9 3.3 - 4.9 mmol/L [facility] Comment:Hemolyzed; Potassium value may be falsely elevated by as much as 0.3-0.5 mmol/L. Suggest redraw and reanalysis. Chloride 88(L) 97 - 110 mmol/L [facility] CO2 19(L) 22 - 32 mmol/L [facility] Anion gap 20(H) 2 - 15 mmol/L [facility] BUN 79(H) 8 - 25 mg/dL [facility] Creatinine 9.13(H) 0.80 - 1.30 mg/dL [facility] Glucose 294(H) 70 - 199 mg/dL [facility] Comment: Interpretive Data Fasting glucose [...] 2017. Calcium 8.2(L) 8.5 - 10.3 mg/dL [facility] Blood 06/05/2022 3:22 PM CDT 06/05/2022 3:59 PM CDT Champ Osborne MD PhD LAB BLOOD ORDERABLES Final Result Performing Organization Address [facility] de Phone Number [facility] [place] [address] * (ABNORMAL) Troponin I high-sensitivity (06/05/2022 3:21 PM CDT) [facility] Trop I hs 4,261(C) <=35 ng/L [facility] Comment: Previous critical value noted within 48 hours ago. Interpretive Data For further [facility] resources including the diagnostic algorithm and an aid in interpretation, copy and paste this link: https://bjhlab.testcatalog.org/show/hsTrop-[email or web address] Current Interpretive Data last revised 2020. Blood 06/05/2022 3:21 PM CDT 06/05/2022 3:59 PM CDT us Champ Osborne MD PhD LAB BLOOD ORDERABLES Final Result Performing Organization Address [facility] de Phone Number [facility] [place] [address] * (ABNORMAL) Arterial Blood gas w/Lactate POCT (06/05/2022 3:17 PM CDT) [facility] Lactate POC i-STAT 2.0 0.7 - 2.2 mmol/L [facility] pH POC 7.38 7.35 - 7.45 [facility] pCO2, Art POC 37 35 - 45 mmHg [facility] PO2 POC 53(L) 80 - 105 mmHg [facility] CO2, total POC 23 20 - 30 mmol/L [facility] HCO3, POC 22 21 - 30 mmol/L [facility] BE POC -3(L) -2 - 3 mmol/L [facility] O2 sat POC 86(L) 95 - 98 % [facility] Blood 06/05/2022 3:17 PM CDT 06/05/2022 3:17 PM CDT Champ Osborne MD PhD LAB BLOOD ORDERABLES Final Result [facility] [place] [address] * XR Chest 1 View (06/05/2022 3:15 [...] BPM [facility] Atrial Rate 73 BPM [facility] MT-Interval (MSEC) 184 ms [facility] QRS-Interval (MSEC) 106 ms [facility] QT-Interval (MSEC) 442 ms [facility] QTc 486 ms [facility] P [place] 49 degrees [facility] R [place] -33 degrees [facility] T [place] 87 degrees [facility] Diagnosis Normal sinus rhythm Left axis deviation QS in V1 and V2, a nonspecific finding with multiple causes, including lead misplacement or septal infarction in 20% Abnormal ECG Confirmed by JESS BUSTOS M.D ([id number]) on 06/07/2022 8:30:06 AM [facility] 06/05/2022 2:52 PM CDT 06/07/2022 8:30 AM CDT Champ Osborne MD PhD ECG ORDERABLES Final Resu lt Performing Organization Address City/[facility]/ZIP Co de Phone Number [facility] * (ABNORMAL) POCT glucose (06/05/2022 2:22 PM CDT) [facility] Glucose, POC 389(H) 70 - 199 mg/dL [facility] Blood 06/05/2022 2:22 PM CDT 06/05/2022 2:22 PM CDT us Champ Osborne MD PhD LAB POCT ORDERABLES - APRIL CE Final Result Performing Organization Address [facility] Co de Phone Number [facility] Department [place] [address] * Respiratory pathogen panel Nasopharyngeal (06/05/2022 1:05 PM CDT) [facility] Influenza A RNA Not Detected Not Detected [facility] Influenza B RNA Not Detected Not Detected [facility] RSV RNA Not Detected Not Detected [facility] COVID-19 RNA Not Detected Not Detected [facility] Coronavirus 229E RNA Not Detected Not Detected [facility] Coronavirus HKU1 RNA Not Detected Not Detected [facility] Coronavirus NL63 RNA Not Detected Not Detected [facility] Coronavirus OC43 RNA Not Detected Not Detected [facility] Adenovirus DNA Not Detected Not Detected [facility] Metapneumovirus RNA Not Detected Not Detected [facility] Rhinovirus/Enterov irus RNA Not Detected Not Detected [facility] Parainfluenza 1 RNA Not Detected Not Detected [facility] Parainfluenza 2 RNA Not Detected Not Detected [facility] Parainfluenza 3 RNA Not Detected Not Detected [facility] Parainfluenza 4 RNA Not Detected Not Detected [facility] B. pertussis DNA Not Detected Not Detected [facility] B. parapertussis DNA Not Detected Not Detected [facility] C. pneumoniae DNA Not Detected Not Detected [facility] M. pneumoniae DNA Not Detected Not Detected [facility] Nasopharyngeal 06/05/2022 1: 05 PM CDT 06/05/2022 1:32 PM CDT Narrative [facility] - 06/05/2022 2:40 PM CDT Is the Patient experiencing symptoms consistent with COVID?->No Reason for testing?->Symptomatic Surveillance testing for transplant patient?->No ??Interpretive Data The [employer] Respiratory Panel (RP2.1) assay is a [...] assay has FDA clearance for testing of [employer] ANALYST swabs. ??The performance of additional specimen types has been assessed by the performing laboratory. ??The performance characteristics of this assay have been determined by [facility] Molecular Infectious Disease Laboratory. Current interpretive data was last revised on 22. Champ Osborne MD PhD LAB MICROBIOLOGY - GENERAL ORDERABLES Final Result Performing Organization Address City/[facility]/ZIP Co de Phone Number [facility] Department [place] [address] * Lactate (06/05/2022 12:10 PM CDT) Lactate 2.0 0.7 - 2.0 mmol/L [facility] Blood 06/05/2022 12:1 0 PM CDT 06/05/2022 12:39 PM CDT Champ Osborne MD PhD LAB BLOOD ORDERABLES Final Result [facility] [place] [address] * Beta-hydroxybutyrate (06/05/2022 12:10 PM CDT) Beta-Hydroxybut yrate <0.1 0.0 - 0.5 mmol/L [facility] Blood 06/05/2022 12:1 0 PM CDT 06/05/2022 12:34 PM CDT Champ Osborne MD PhD LAB BLOOD ORDERABLES Final Result Performing Organization Address [facility] [place] [address] * (ABNORMAL) POCT glucose (06/05/2022 11:23 AM CDT) Glucose, POC 402(H) 70 - 199 mg/dL [facility] Glucose comment 1 Glu2: RN/MD Notified [facility] Blood 06/05/2022 11:2 3 AM CDT 06/05/2022 11:23 AM CDT Champ Osborne MD PhD LAB POCT ORDERABLES - APRIL CE Final Result Performing Organization Address [facility] [place] [address] * aPTT (06/05/2022 11:04 AM CDT) [facility] aPTT 29 27 - 37 sec [facility] Comment: Interpretive Data Therapeutic heparin range: 60.0 - 94.0 seconds. Based on correlation with therapeutic heparin activity range of 0.3-0.7 Units/mL. Current interpretive data was last revised on 2020. Blood 06/05/2022 11:0 4 AM CDT 06/05/2022 12:39 PM CDT Champ Osborne MD PhD LAB BLOOD ORDERABLES Final Result Performing Organization Address [facility] [place] [address] * (ABNORMAL) POCT glucose (06/05/2022 10:07 AM CDT) Glucose, POC 403(H) 70 - 199 mg/dL [facility] Blood 06/05/2022 10:0 7 AM CDT 06/05/2022 10:07 AM CDT us Champ Osborne MD PhD LAB POCT ORDERABLES - APRIL CE Final Result Performing Organization Address [facility] Co de Phone Number [facility] [place] [address] * (ABNORMAL) POCT glucose (06/05/2022 8:47 AM CDT) Glucose, POC 398(H) 70 - 199 mg/dL [facility] Blood 06/05/2022 8:47 AM CDT 06/05/2022 8:47 AM CDT us Champ Osborne MD PhD LAB POCT ORDERABLES - APRIL CE Final Result Performing Organization Address [facility] Co de Phone Number [facility] [place] [address] * (ABNORMAL) POCT glucose (06/05/2022 8:45 AM CDT) Glucose, POC 458(C) 70 - 199 mg/dL [facility] Glucose comment 1 Glu2: RN/MD Notified [facility] Blood 06/05/2022 8:45 AM CDT 06/05/2022 8:45 AM CDT us Champ Osborne MD PhD LAB POCT ORDERABLES - APRIL CE Final Result Performing Organization Address City/[facility] Co de Phone Number [place] [address] * (ABNORMAL) POCT glucose (06/05/2022 6:33 AM CDT) Glucose, POC 373(H) 70 - 199 mg/dL [facility] Blood 06/05/2022 6:33 AM CDT 06/05/2022 6:33 AM CDT Champ Osborne MD PhD LAB POCT ORDERABLES - APRIL CE Final Result [facility] [facility] [place] [address] * IR Outside Reference (06/05/2022 5:59 AM CDT) Impressions [facility] - 06/05/2022 5:59 AM CDT These images are for Reference purposes only and have not been reviewed by [facility] Radiology. ??There will be no report generated by a [facility] Radiologist. Narrative [facility] - 06/05/2022 5:59 AM CDT EXAMINATION: ??Images For Reference Purposes Only us Carrington Weber MD IMG IR PROCEDURES Final Result Performing Organization Address [facility] Co de Phone Number [email or web address] * XR Outside Reference (06/05/2022 5:57 AM CDT) Impressions [facility] - 06/05/2022 5:57 AM CDT These images are for Reference purposes only and have not been reviewed by [facility] Radiology. ??There will be no report generated by a [facility] Radiologist. Narrative [facility] - 06/05/2022 5:57 AM CDT EXAMINATION: ??Images For Reference Purposes Only us Carrington Weber MD IMG XR PROCEDURES Final Result Performing Organization Address City/[facility]/ZIP Co de Phone Number [email or web address] * US Outside Reference (06/05/2022 5:56 AM CDT) Impressions [facility] - 06/05/2022 5:56 AM CDT These images are for Reference purposes only and have not been reviewed by [facility] Radiology. ??There will be no report generated by a [facility] Radiologist. Narrative [facility] - 06/05/2022 5:56 AM CDT EXAMINATION: ??Images For Reference Purposes Only Carrintgon Weber MD IMG US PROCEDURES Final Result Performing Organization Address City/[facility] Co de Phone Number [email or web address] * CT Body Outside Reference (06/05/2022 5:54 AM CDT) Impressions RAD_PACS[facility] - 06/05/2022 5:54 AM CDT These images are for Reference purposes only and have not been reviewed by [facility] Radiology. ??There will be no report generated by a [facility] Radiologist. Narrative RAD_PACS_[facility] - 06/05/2022 5:54 AM CDT EXAMINATION: ??Images For Reference Purposes Only Carrington Weber MD IMG CT PROCEDURES Final Result Performing Organization Address [facility] de Phone Number [facility] * (ABNORMAL) Troponin I high-sensitivity 2-hour (06/05/2022 4:27 AM CDT) Trop I hs 4,555(C) <=35 ng/L [facility] Comment: Previous critical value noted within 48 hours ago. Interpretive Data For further hscTnI resources including the diagnostic algorithm and an aid in interpretation, copy and paste this link: https://bjhlab.testcatalog.org/show/hsTrop-1 Current Interpretive Data last revised 2020. Trop I hs pct delta -1 % [facility] Trop I hs interp Insignificant [facility] Blood 06/05/2022 4:27 AM CDT 06/05/2022 5:21 AM CDT Champ Osborne MD PhD LAB BLOOD ORDERABLES Final Result Performing Organization Address [facility] Co de Phone Number [facility] Department [place] [address] * (ABNORMAL) aPTT (06/05/2022 4:27 AM CDT) aPTT 23(L) 27 - 37 sec [facility] Comment: Interpretive Data Therapeutic heparin range: 60.0 - 94.0 seconds. Based on correlation with therapeutic heparin activity range of 0.3-0.7 Units/mL. Current interpretive data was last revised on 2020. Blood 06/05/2022 4:27 AM CDT 06/05/2022 5:50 AM CDT Narrative [facility] - 06/05/2022 6:00 AM CDT Baseline prior to heparin initiation Champ Osborne MD PhD LAB BLOOD ORDERABLES Final Result Performing Organization Address [facility] de Phone Number [facility] [place] [address] * Protime-INR (06/05/2022 4:27 AM CDT) PT 10.1 9.2 - 13.5 sec [facility] INR 0.9 0.9 - 1.2 [facility] Comment: Interpretive data Oral anticoagulant therapeutic ranges: Venous thromboembolism prophylaxis or treatment: 2.0-3.0 CARDIOLOGY Standard range: 2.0-3.0 High-intensity range: 2.5-3.5 Refer to indication-specific guidelines for appropriate target ranges for prosthetic heart valve replacement. Current interpretive data was last revised on 2019. Blood 06/05/2022 4:27 AM CDT 06/05/2022 5:50 AM CDT Narrative [facility] - 06/05/2022 6:00 AM CDT Baseline prior to heparin initiation Champ Osborne MD PhD LAB BLOOD ORDERABLES Final Result Performing Organization Address [facility] de Phone Number [place] [address] * (ABNORMAL) Troponin I high-sensitivity series (baseline, 2hr, 4hr, 6hr) (06/05/2022 2:37 AM CDT) Pathologist [facility] Trop I hs 4,614(C) <=35 ng/L [facility] Comment: Previous critical value noted within 48 hours ago. Interpretive Data For further [facility] resources including the diagnostic algorithm and an aid in interpretation, copy and paste this link: https://bjhlab.testcatalog.org/show/hsTrop-[email or web address] Current Interpretive Data last revised 2020. Blood 06/05/2022 2:37 AM CDT 06/05/2022 3:30 AM CDT us Champ Osborne MD PhD LAB BLOOD ORDERABLES Final Result [facility] Department [place] [address] * POCT glucose (06/04/2022 11:04 PM CDT) [facility] Glucose, POC 191 70 - 199 mg/dL [facility] Blood 06/04/2022 11:0 4 PM CDT 06/04/2022 11:04 PM CDT us Champ Osborne MD PhD LAB POCT ORDERABLES - APRIL CE Final Result Performing Organization Address City/[facility]/ZIP Co de Phone Number [facility] Department [place] [address] * ECG 12 lead (06/04/2022 10:59 PM CDT) [facility] Ventricular Rate EKG/Min 47 BPM [facility] Atrial Rate 47 BPM [facility] MT-Interval (MSEC) 228 ms [facility] QRS-Interval (MSEC) 116 ms [facility] QT-Interval (MSEC) 532 ms [facility] QTc 470 ms [facility] P [place] 39 degrees [facility] R [place] -33 degrees [facility] T [place] 105 degrees [facility] Diagnosis Sinus bradycardia with 1st degree A-V block Left axis deviation Incomplete left bundle branch block Nonspecific ST and T wave abnormality Long QTc When compared with ECG of 03-AUG-2017 00:14, MT interval has increased QTc has increased Rate has decreased by 15 bpm Incomplete left bundle branch block is now Present Criteria for Septal infarct are not Present Confirmed by KENN BILLINGSLEY M.D ([id number]) on 06/06/2022 9:57:10 PM [facility] 06/04/2022 10:5 9 PM CDT 06/06/2022 9:57 PM CDT Result [facility] Catherine Adams MD ECG ORDERABLES Final Resul t [facility] * (ABNORMAL) Hemoglobin A1c (06/04/2022 10:52 PM CDT) Hgb A1C 7.8(H) 4.0 - 5.6 % [facility] Estimated Average Glucose 177 mg/dL [facility] Comment: The ADA recommends reporting an estimated Average Glucose (eAG) with all Hemoglobin A1c results using the equation derived from a study of 507 normal and diabetic adults. ??Minority populations were underrepresented and children were not included. ?? (Diabetes Care 2020; 43(S1): S66-S76). ??The eAG is not equivalent to a fasting glucose. Blood 06/04/2022 10:5 2 PM CDT 06/05/2022 Result [facility] Champ Osborne MD PhD LAB BLOOD ORDERABLES Final Result [facility] [place] [address] * Beta-hydroxybutyrate (06/04/2022 10:52 PM CDT) Pathologist [facility] Beta-Hydroxybut yrate <0.1 0.0 - 0.5 mmol/L [facility] Blood 06/04/2022 10:5 2 PM CDT 06/05/2022 Champ Osborne MD PhD LAB BLOOD ORDERABLES Final Result [facility] [place] [address] * (ABNORMAL) Lipid panel (06/04/2022 10:52 PM [...] revised on 2018. HDL 34(L) >=40 mg/dL [facility] Comment: [...] on 2018. LDL, calculated 82 <=129 mg/dL [facility] Comment: Interpretive Data Ages < or [...] last revised on 2018. Chol/HDL ratio 4 [facility] Blood 06/04/2022 10:5 2 PM CDT 06/04/2022 11:56 PM CDT Champ Osborne MD PhD LAB BLOOD ORDERABLES Final Result Performing Organization Address City/[facility] de Phone Number [facility] [place] [address] * Critical result callback Cardio chemistry (06/04/2022 10:52 PM CDT) Date Notified [id number] [facility] Time Notified 99 [facility] Test name Trop [facility] Called/Read Back Denisse Connelly RN [facility] Credentials RN [facility] Called By dm [facility] Blood 06/04/2022 10:5 2 PM CDT 06/04/2022 11:56 PM CDT Catherine Adams MD LAB BLOOD ORDERABLES Final Result Performing Organization Address [facility] de Phone Number [facility] Department [place] [address] * (ABNORMAL) eGFR (06/04/2022 10:52 PM CDT) eGFR 6(L) 90 - 130 mL/min/1. 73 m2 [facility] Comment: Interpretive Data Reference Interval [...] Adams MD LAB BLOOD ORDERABLES Final Result [facility] [place] [address] * Differential, auto (06/04/2022 10:52 PM CDT) Neutrophil abs 6.1 1.7 - 6.5 K/cumm [facility] Imm gran abs 0.1 0.0 - 0.1 K/cumm [facility] Lymphocyte abs 0.8 0.8 - 3.3 K/cumm [facility] Monocyte abs 0.8 0.2 - 0.8 K/cumm [facility] Eosinophil abs 0.0 0.0 - 0.5 K/cumm [facility] Basophil abs 0.0 0.0 - 0.1 K/cumm [facility] Neutrophil pct 79.1 % [facility] Comment: Interpretive Data Percent cell count reference ranges are not reported, since discordance with absolute values may lead to misinterpretation of CBC data. Current Interpretive Data was last revised on 2017. Imm gran pct 0.6 % [facility] Comment: Interpretive Data Percent cell count reference ranges are not reported, since discordance with absolute values may lead to misinterpretation of CBC data. Current Interpretive Data was last revised on 2017. Lymphocyte pct 10.1 % [facility] Comment: Interpretive Data Percent cell count reference ranges are not reported, since discordance with absolute values may lead to misinterpretation of CBC data. Current Interpretive Data was last revised on 2017. Monocyte pct 10.2 % [facility] Comment: Interpretive Data Percent cell count reference ranges are not reported, since discordance with absolute values may lead to misinterpretation of CBC data. Current Interpretive Data was last revised on 2017. Eosinophil pct 0.0 % [facility] Comment: Interpretive Data Percent cell count reference ranges are not reported, since discordance with absolute values may lead to misinterpretation of CBC data. Current Interpretive Data was last revised on 2017. Basophil pct 0.0 % [facility] Comment: Interpretive Data Percent cell count reference ranges are not reported, since discordance with absolute values may lead to misinterpretation of CBC data. Current Interpretive Data was last revised on 2017. Blood 06/04/2022 10:5 2 PM CDT 06/04/2022 11:56 PM CDT us Catherine Adams MD LAB BLOOD ORDERABLES Final Result [facility] [place] [address] * (ABNORMAL) Troponin I high-sensitivity (06/04/2022 10:52 PM CDT) Trop I hs 4,797(C) <=35 ng/L [facility] Comment: Interpretive Data For further hscTnI resources including the diagnostic algorithm and an aid in interpretation, copy and paste this link: https://bjhlab.testcatalog.org/show/[email or web address] Current Interpretive Data last revised 2020. Blood 06/04/2022 10:5 2 PM CDT 06/04/2022 11:56 PM CDT us Catherine Adams MD LAB BLOOD ORDERABLES Final Result [facility] [place] [address] * (ABNORMAL) Pro B-type natriuretic peptide (06/04/2022 [...] CDT 06/04/2022 11:56 PM CDT us Catherine Aadms MD LAB BLOOD ORDERABLES Final Result [facility] [place] [address] * (ABNORMAL) CBC with auto differential (06/04/2022 10:52 PM CDT) WBC 7.7 3.8 - 9.9 K/cumm [facility] Hgb 9.5(L) 13.0 - 17.5 g/dL [facility] Hct 27.2(L) 38.9 - 50.3 % [facility] Plt 195 150 - 400 K/cumm [facility] MPV 11.3 9.1 - 12.3 fL [facility] RBC 3.10(L) 4.30 - 5.80 M/cumm [facility] MCV 87.7 81.3 - 96.4 fL [facility] MCH 30.6 27.1 - 33.3 pg [facility] MCHC 34.9 32.3 - 35.7 g/dL [facility] RDW CV 12.5 11.1 - 14.9 % [facility] RDW SD 40.2 35.7 - 48.1 fL [facility] NRBC abs 0.00 0.00 - 0.01 K/cumm [facility] Blood 06/04/2022 10:5 2 PM CDT 06/04/2022 11:56 PM CDT us Catherine Adams MD LAB BLOOD ORDERABLES Final Result [facility] [place] [address] * (ABNORMAL) Comprehensive metabolic panel (06/04/2022 10:52 PM CDT) Sodium 129(L) 135 - 145 mmol/L [facility] Potassium, pl 4.0 3.3 - 4.9 mmol/L [facility] Chloride 88(L) 97 - 110 mmol/L [facility] CO2 24 22 - 32 mmol/L [facility] Anion gap 17(H) 2 - 15 mmol/L [facility] BUN 82(H) 8 - 25 mg/dL [facility] Creatinine 8.95(H) 0.80 - 1.30 mg/dL [facility] Glucose 185 70 - 199 mg/dL [facility] Comment: Interpretive Data Fasting glucose [...] 2017. Calcium 8.6 8.5 - 10.3 mg/dL [facility] Bilirubin, total 0.5 0.1 - 1.2 mg/dL [facility] Protein, pl 6.5 6.5 - 8.5 g/dL [facility] Albumin 3.6 3.5 - 5.0 g/dL [facility] Alk phos 115 40 - 130 Units/L [facility] ALT 37 7 - 55 Units/L [facility] AST 53(H) 10 - 50 Units/L [facility] Blood 06/04/2022 10:5 2 PM CDT 06/04/2022 11:56 PM CDT Catherine Adams MD LAB BLOOD ORDERABLES Final Result [facility] [place] [address] * XR Chest 1 View (06/04/2022 10:50 [...] Diagnosis Diagnosis unknown Coronary artery disease involving point lay ira heart without angina pectoris, unspecified vessel or lesion type Unstable angina ([facility]) ([facility]) Intermediate coronary syndrome Hyperlipidemia, unspecified hyperlipidemia type Hypotension, unspecified hypotension type Acute hypoxemic respiratory failure (HCC) Angina pectoris (HCC) Other and unspecified angina pectoris End stage renal disease (CMS/HCC) (HCC) End stage renal disease Angina pectoris (HCC) Other and unspecified angina pectoris Acute hypoxemic respiratory failure (HCC) CAD (coronary artery disease) Coronary atherosclerosis of unspecified type of vessel, point lay ira or graft Unstable angina ([facility]) ([facility]) Intermediate coronary syndrome Hypotension, unspecified hypotension type [...] Mon06/22/22 at 1930 Given 06/27/2022 5:47 PM SIGNALING PROJECT ENGINEER 1,000 mg albuterol HFA (PROVENTIL HFA,VENTOLIN HFA,PROAIR HFA) 90 mcg/actuation inhaler 2 puff 2 puff, inhalation, Every 6 hours PRN (membership correspondent), wheezing, shortness of breath, Starting on Mon06/05/22 at 0229 Given 06/15/2022 2:50 AM CDT 2 puffs aspirin chewable tablet 81 mg 81 mg, oral, Daily, First dose (after last modification) on Gregoria 06/23/22 at 0900 Given 06/29/2022 8:23 AM SIGNALING PROJECT ENGINEER 81 mg Given 06/28/2022 8:56 AM SIGNALING PROJECT ENGINEER 81 mg Given 06/27/2022 8:17 AM SIGNALING PROJECT ENGINEER 81 mg atorvastatin (LIPITOR) tablet 80 mg 80 mg, oral, Daily, First dose (after last modification) on Mon06/23/22 at 0900 Given 06/29/2022 8:23 AM SIGNALING PROJECT ENGINEER 80 mg Given 06/28/2022 8:56 AM SIGNALING PROJECT ENGINEER 80 mg Given 06/27/2022 8:18 AM SIGNALING PROJECT ENGINEER 80 mg calcitRIOL (ROCALTROL) capsule 0.25 mcg 0.25 mcg, oral, Daily, First dose on Mon06/22/22 at 1000 Given 06/29/2022 8:23 AM SIGNALING PROJECT ENGINEER 0.25 mcg Given 06/28/2022 8:56 AM SIGNALING PROJECT ENGINEER 0.25 mcg Given 06/27/2022 8:17 AM SIGNALING PROJECT ENGINEER 0.25 mcg calcium acetate(phosphat bind) (PHOSLO) capsule 667 mg 667 mg, oral, 4 times daily, First dose on Maxie 06/05/22 at 0800, Take with food Given 06/29/2022 12:34 PM SIGNALING PROJECT ENGINEER 667 mg Given 06/29/2022 8:23 AM SIGNALING PROJECT ENGINEER 667 mg Given 06/28/2022 9:00 PM SIGNALING PROJECT ENGINEER 667 mg clopidogreL (PLAVIX) tablet 75 mg 75 mg, oral, Daily, First dose (after last modification) on Gregoria 06/23/22 at 0900 Given 06/29/2022 8:23 AM SIGNALING PROJECT ENGINEER 75 mg Given 06/28/2022 8:56 AM SIGNALING PROJECT ENGINEER 75 mg Given 06/27/2022 8:18 AM SIGNALING PROJECT ENGINEER 75 mg dextrose (D10W) 10% bolus 250 [...] of hypoglycemia., Indications: hypoglycemic disorderIndications:hypoglycemic disorder dextrose 5% water flush 10 mL [...] glucose less than 70 mg/dL, Starting on 06/27/22 at 1302, If patient is alert and [...] episode of hypoglycemia., Indications: hypoglycemic disorderIndications:hypoglycemic disorder ezetimibe (ZETIA) tablet 10 mg 10 mg, oral, Daily, First dose (after last modification) on Gregoria 06/23/22 at 0900 Given 06/29/2022 8:23 AM SIGNALING PROJECT ENGINEER 10 mg Given 06/28/2022 8:56 AM SIGNALING PROJECT ENGINEER 10 mg Given 06/27/2022 8:18 AM SIGNALING PROJECT ENGINEER 10 mg fentaNYL (SUBLIMAZE) preservative free injection As needed, Starting on Mon06/10/22 at 1144, Intra-Procedure (CV) Given 06/10/2022 11:44 AM CDT 200 mcg fluticasone propionate (FLONASE) 50 mcg/actuation nasal spray 2 spray 2 spray, each nostril, 2 times daily PRN, rhinitis, Starting on Mon06/05/22 at 1240 gentamicin (GARAMYCIN) 0.1 % cream topical, Daily, First dose on Tu06/28/22 at 1245, Apply to peritoneal dialysis catheter exit site daily during dressing change. DO NOT SUBSTITUTE WITH OINTMENT., Apply to affected area: dialysis access site, Indications: Infection ProphylaxisIndications:Infec tion Prophylaxis Given 06/28/2022 8:05 PM SIGNALING PROJECT ENGINEER glucagon injection 1 mg 1 mg, intramuscular, [...] mL SWFI. Use immediately following reconstitution. heparin 5,000 unit/mL injection 5,000 Units 5,000 Units, subcutaneous, Every 8 hours scheduled, First dose on Mon06/22/22 at 1400, Indications: Deep Vein Thrombosis PreventionIndications:Deep Vein Thrombosis Prevention Given 06/29/2022 12:34 PM SIGNALING PROJECT ENGINEER 5,000 Units Left Lower Abdomen Given 06/29/2022 5:01 AM SIGNALING PROJECT ENGINEER 5,000 Units L eft Lower Abdomen Given 06/28/2022 9:00 PM SIGNALING PROJECT ENGINEER 5,000 Units L eft Upper Abdomen insulin lispro (HumaLOG, ADMELOG) 100 unit/mL injection 4 Units 4 Units, subcutaneous, Once as needed, other, insulin pump not functional, Starting on Mon06/27/22 at 1302, For 1 dose, Administer back up dose if insulin pump is not functional. Call MD for alternate insulin regimen., Indications: Diabetes MellitusIndications:Diabe canelo Mellitus INSULIN SUBCUTANEOUS PUMP (HUMALOG) 100 UNITS/ML [...] Self Administered Via Pump 06/29/2022 12:34 PM SIGNALING PROJECT ENGINEER 8 Units Left Lower Abdomen Self Administered Via Pump 06/29/2022 8:27 AM SIGNALING PROJECT ENGINEER 7 Units Left Lower Abdomen Self Administered Via Pump 06/28/2022 5:55 PM SIGNALING PROJECT ENGINEER 4.3 Unit s Left Lower Abdomen isosorbide mononitrate ER (IMDUR) extended release tablet 30 mg 30 mg, oral, Daily, First dose on Mon06/24/22 at 1715, Tablets that are scored may be split, but do not crush, chew, dissolve, open or otherwise manipulate tablet/capsule. Given 06/29/2022 8:22 AM SIGNALING PROJECT ENGINEER 30 m g Given 06/28/2022 8:56 AM SIGNALING PROJECT ENGINEER 30 mg Given 06/27/2022 8:18 AM SIGNALING PROJECT ENGINEER 30 mg lidocaine (LIDODERM) 5 % patch 1 patch 1 patch, transdermal, Administer over 12 Hours, Daily PRN, 2nd line for pain, Starting on Mon06/05/22 at 0413, Do not cover the holes on the top side of the patch., Apply to affected area: back lidocaine (XYLOCAINE) 10 mg/mL (1 %) injection As needed, Starting on Mon06/10/22 at 1146, Intra-Procedure (CV), Indications: Administration of Local AnesthesiaIndications:Administrati on of Local Anesthesia Given 06/10/2022 11:46 AM CDT 10 mL Right Groin losartan (COZAAR) tablet 12.5 mg 12.5 mg, oral, Daily, First dose on 06/25/22 at 0900 Given 06/29/2022 8:22 AM SIGNALING PROJECT ENGINEER 12.5 mg Given 06/28/2022 8:56 AM SIGNALING PROJECT ENGINEER 12.5 mg Given 06/27/2022 8:17 AM SIGNALING PROJECT ENGINEER 12.5 mg metoprolol tartrate (LOPRESSOR) immediate release tablet 25 mg 25 mg, oral, 2 times daily, First dose (after last modification) on 06/27/22 at 0900 Given 06/29/2022 8:22 AM SIGNALING PROJECT ENGINEER 25 mg Given 06/28/2022 9:00 PM SIGNALING PROJECT ENGINEER 25 mg Given 06/28/2022 8:56 AM SIGNALING PROJECT ENGINEER 25 mg nitroglycerin (NITROSTAT) sublingual tablet 0.4 mg 0.4 mg, sublingual, Every 5 min PRN, chest pain, Starting on Gregoria 06/23/22 at 1358, May administer up to 3 doses per episode. ondansetron (ZOFRAN) injection 4 mg 4 mg, [...] GI BleedIndications:GI Bleed Given 06/29/2022 8:22 AM SIGNALING PROJECT ENGINEER 40 mg Given 06/28/2022 8:56 AM SIGNALING PROJECT ENGINEER 40 mg Given 06/27/2022 8:18 AM SIGNALING PROJECT ENGINEER 40 mg polyvinyl alcohol-povidone (REFRESH CLASSIC) 1.4-0.6 % ophthalmic solution 1 drop 1 drop, each eye, 4 times daily, First dose on Gregoria 06/16/22 at 2100 Given 06/29/2022 12:34 PM SIGNALING PROJECT ENGINEER 1 drop Given 06/29/2022 8:22 AM SIGNALING PROJECT ENGINEER 1 drop Given 06/28/2022 9:01 PM SIGNALING PROJECT ENGINEER 1 drop ramelteon (ROZEREM) tablet 8 mg [...] Recently Administered Medications Times are shown in SIGNALING PROJECT ENGINEER. Scheduled Medication Order 06/27/2022 06/28/2022 06/29/2022 aspirin [...] last modification) on Gregoria 06/23/22 at 0900 0818 (Given - Provider: Manda [...] Mell Wild RN)1432 (Given - Provider: Manda Lake, LUAN)215 (Given - Provider: Sasha Subramanian, RN) 06 (Given - Provider: Sasha Subramanian, RN)1435 (Given - Provider: Manda Lake, LUAN)2100 (Given - Provider: Radha Paul, RN) 0501 (Given - Provider: Radha Paul RN)1234 (Given - Provider: Manda Lake RN) [...] Manda Lake RN)1208 (Given - Provider: Manda Lake, LUAN) insulin lispro (HumaLOG, ADMELOG) 100 unit/mL [...] Manda Lake RN)2150 (Given - Provider: Sasha Subramanian, LUAN) 0856 (Given - Provider: Manda Lake RN)2100 (Given - Provider: Radha Humberto, RN) 0822 (Given - Provider: Manda Lake [...] Manda Lake, LUAN)2151 (Given - Provider: Sasha Subramanian RN) 0856 (Given - Provider: Manda Lake RN)1437 (Given - Provider: Manda Lake RN)1752 (Given - Provider: Manda Lake, LUAN)2101 (Given - Provider: Radha Paul RN) 0822 (Given - Provider: Manda Lake RN)1234 (Given - Provider: Manda Lake RN) potassium chloride ER (KLOR-CON) extended release tablet 20 mEq (COMPLETED) 20 mEq, oral, Once, On Mon06/27/22 at 0900, For 1 dose, Do not crush, chew, cut, dissolve, open or otherwise manipulate tablet/capsule. 0857 (Given - Provider: Manda Laek RN) Continuous Medication Order 06/27/2022 06/28/2022 06/29/2022 Dianeal low calcium-dextrose 2.5 % 2,500 mL dialysis solution (CANCELED) intraperitoneal, Continuous, Starting on Mon06/27/22 at 1630, For 24 hours, CCPD bag number: 3, Indications: Peritoneal Dialysis 2006 (New Bag - Provider: Pj Duckworth RN) 06 (Due: Stopped - Provider: Pj Duckworth RN) [...] 2 puff, inhalation, Every 6 hours PRN (membership correspondent), wheezing, shortness of breath, Starting on Mon06/05/22 [...] 5 min PRN, chest pain, Starting on Rgegoria 06/23/22 at 1358, May administer up to [...] chlor deana 25,000 unit/250 mL infusion (premix) 5 06/22/2022 06/05/2022 insulin lispro (HumaLOG, ADM ELOG) [...] 0.9% sodium chloride inhalation solution 7 06/10/202205/21 polyethylene glycol (MIRALAX) packet 17 g 7 [...] (0.02 mg/mL) infusion 1 06/07/2022 fentaNYL (SUBLIMAZE) bolus from bag 50 mcg 2 06/07/2022 fentaNYL (SUBLIMAZE) preserv ative free injection 1 06/07/2022 fentaNYL (SUBLIMAZE) preserv ative free injection 50 mcg 2 06/07/2022 fentaNYL 2500 mcg/50 mL betzy ette/syringe (premix) 1 06/07/2022 heparin 1,000 unit/mL injection 1 hydrALAZINE (APRESOLINE) tablet 100 mg 2 06/05/2022 [...] 0.5 %-1:200,000 injection 10 mL 1 06/07/2022 midazolam (VERSED) 1 mg/mL p reservative free injection 1 06/07/2022 norepinephrine in dextrose 5 % (LEVOPHED) 8,000 mcg/250 mL (32 mcg/mL) infusion (premix) 1 06/07/2022 pantoprazole (PROTONIX) 4 mg /mL injection 40 mg 1 06/07/2022 phenylephrine (JONN-SYNEPHRIN E) 0.5 mg/5 mL (100 mcg/mL) in sodium chloride 0.9% (premix) 1 06/07/2022 potassium chloride (KLOR-CON ) packet [...] furosemide (LASIX) tablet 120 mg 1 06/05/20 22 gemfibroziL (LOPID) tablet 600 mg 1 022 [...] Date First Orde red Date CASE REQUEST SIDING INSTALLER 1 06/10/2022 ADT Patient Update Count Last Ordered Date Firs t Ordered Date PROVIDER TREATMENT TEAM 1 06/04/2022 documented in this encounter Additional Health Concerns Infection Onset Date Last Indicated Resolved Time COVID: Suspected 06/08/2022 06/08/2022 06/08/2022 10:14 PM CDT COVID: Suspected 06/15/2022 06/15/2022 06/15/2022 1:03 PM CDT documented as of this encounter Care Teams Bottom Stop Attacher Relationship Specialty Start Date End Date Aditya Castro MD [address] [facility] [place] [address] PCP - General 10/17/19 documented as of this encounter
--- OUTSIDE RECORDS SUMMARY | 2024-08-24 04:48 | XMS_ITS | Encounter Summary ---
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 Gender Identity Not on file Sexual Orientation Not on file documented as of this encounter Plan of Treatment Not on file documented as of this encounter Procedures Procedure Name Priority Date/Time Associated Diagnosis Comments PREPARE RBC STAT 06/17/2022 10:25 PM CDT documented in this encounter Results * Prepare RBC (06/17/2022 10:25 PM CDT) Product code [id number] [facility] Unit Number [id number] [facility] Product Blood Type APOS [facility] Dispense Status PRESUMED TRANSFUSED [facility] Blood 06/17/2022 10:2 5 PM CDT 06/17/2022 10:25 PM CDT Narrative [facility] - 06/21/2022 12:50 AM CDT Are special requirements needed? (All products are leukoreduced and CMV- safe)- >No Date required:-[id number] LRRBC # of Eweck-3-Dagvs Reasons:-Hgb <7 g/dL} us Tyra eD La Torre MD BLOOD BANK PRODUCT ORDERABLES F inal Result [facility] Department [place] [address] documented in this encounter Visit Diagnoses Diagnosis Status post insertion of drug eluting coronary artery stent- Primary documented in this encounter Care Teams Haulage Boss Relationship Specialty Start Date End Date Aditya Castro MD [address] [facility] DE[facility] [place] [address] PCP - General 10/17/19 documented as of this encounter
--- OUTSIDE RECORDS SUMMARY | 2024-08-24 04:50 | XMS_ITS | Encounter Summary ---
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 - 06/06/2022 12:29 PM CDT [facility] & * Telephone Encounter - Kalyn Saba - 06/06/2022 12:22 PM CDT CARDIOLOGY CONSULT 06/06/2022 RECEIVED BY: Kalyn Saba TYPE OF CONSULT: general CALLER'S NAME:[facility] CALLER'S PAGER:[phone] PATIENT'S NAME: Juvenal Daigle Jr. : 1970 CAMPUS: [facility] PATIENT'S LOCATION:[facility] REASON FOR CONSULT: N-STEMI ATTENDING PHYSICIAN: Vincenzo Akers Note: Interventional cardiology is aware of patient documented in this encounter Plan of Treatment Not on file documented as of this encounter Visit Diagnoses Not on filedocumented in this encounter Care Teams Hr Specialist Relationship Specialty Start Date End Date Aditya Castro MD [address] [facility] DEPT [place] [address] PCP - General 10/17/19 documented as of this encounter
--- OUTSIDE RECORDS SUMMARY | 2024-08-24 04:50 | XMS_ITS | Encounter Summary ---
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
--- OUTSIDE RECORDS SUMMARY | 2024-08-24 04:50 | XMS_ITS | Encounter Summary ---
Author Organization [facility] Healthcare Address [address] [place] [address] Care Team Providers Care Manager Exchange Name Role Phone Aditya Castro MD Primary Care Provider [phone] Reason for Visit * Auth/Cert Specialty Diagnoses / Procedures Referred By Contac t Referred To Contact Diagnoses Angina pectoris (HCC) NON STEMI CARDS FIRM, PD, covid neg Procedures N/A Referral ID Status Reason Start Date Expiration Date Visits Re quested Visits Authorized [id number] 1 1 Encounter Details Date Type Department Care Team (Late st Contact Info) Description 06/07/2022 12:00 PM CDT - 06/07/2022 2:[address] [facility] [address] [place] [address] Champ Osborne MD PhD [address] [place] [address] PCI MARIELLA MAJOR CORONARY [id number] - [id number] Surgery Details Date/Time Status Location OR Service Patient Class Case Class Case Type Trauma Case? 06/07/2022 12:00 PM Posted [facility] CARDI[facility] PARALEGAL SPECIALIST CCL 01 Cardiovascular Inpatient Time Sensitive - 1 Week Panel 1 Procedure LRB Anes Op Region Wound Class Comments PCI MARIELLA MAJOR CORONARY [id number] - [id number] N/A Conscious Sedation CIRC Surgeon Surgeon Role Service Panel Champ Osborne MD PhD Primary Cardiovascular 1 Fernando Torres MD Fellow Cardiovas cular 1 Case Notes Transfer in from [facility] documented in this encounter Social [...] on file Legal Sex Male 3:42 AM VACATION SALES ADVISOR Gender Identity Not on file Sexual [...] Care Physician at Discharge: Aditya Castro MD [phone] Admission Date: 06/04/2022 Discharge Date: 06/29/2022 Admission Location: [facility] Problems/Diagnoses: Principal Problem: NSTEMI (non-ST elevated myocardial [...] gout, BEN on CPAP initially presented to [facility] for n/v andchest pain, transferred to [facility] for LHC/PCI, now presenting to CCU s/p complex PCI with impella and intubated. At the OSH he presented with 3d generalized weakness, chills, ROONEY, n/v, chest pain relieved by sublingual ntg. His labs were notable for trop 1.0-->1.09-->0.729, BNP 70129. He had a CT CAP showing cholelithiasis [...] circumflex as optimal treatment, prompting transfer to [place]. He arrived at [place] 06/05. EKG showed sinus bradycardia, 1st deg [...] (non-ST elevated myocardial infarction) (CMS/HCC) ([facility]) With interventions described above. Post-transfer and post-cath, [...] failure with reduced ejection fraction) ([facility]) He developed cardiogenic shock requiring impella in the setting of cath c/b AHRF 2/2 pulmonary edema. Post-cath, TTE demonstrated recovered EF 65% with grade I diastolic dysfunction. Volume was managed with CRRT in ICU, then by resumption of PD on the medical floor. In discussion with nephrology, low dose losartan was started for GDMT in addition to metoprolol. ESRD (end stage renal disease) ([facility]) ([facility]) Renal consulted on admission with history of ESRD on PD. While in ICU, temporary dialysis catheter was placed to facilitate CRRT for volume removal. Upon transfer to the floor, PD was continued and tolerated well. He was continued on his home vitamins for renal bone mineral disease and phoslo. Trialysis removed 06/25. Type 1 diabetes mellitus ([facility]) Prior to admission, his A1c was well [...] REMOVE PERC ARTERIAL VAD (IMPELLA), DIFFERENT SESSION [id number] Other Procedures: Pertinent Test Results: See hospital [...] one tablet three times daily Outpatient Follow-Up: TION SALES ADVISOR documented in this encounter Discharge Instructions * Discharge Instructions* Frank Bowers MD - 06/29/2022 9:19 AM VACATION SALES ADVISOR Mr. Adelia Garvin, You were admitted to the hospital for chest pain, and you were seen by our cardiology specialists where you received a new stent placed. As you have improved and are tolerating your insulin pump wellas well as your dialysis, you are stable to be discharged to the rehab facility. Continue Omnipod 5 insulin pump with [employer] G6 CGM at home settings: TIME BASAL [...] yearly or sooner as indicated by your retirement benefits specialist Pending results for primary service or primary care physician to follow up on: None at time of discharge Follow Up Plan: Follow up with endocrinology near his home 1-2 weeks after discharge to reassess glycemic management and adjust insulin pump settings as needed. TION SALES ADVISOR TION SALES ADVISOR documented in this encounter Medications at Time [...] Means Destination Discharge to an Rehab facility [facility] documented in this encounter Progress Notes * Elsie Gonzalez RN - 06/29/2022 11:30 AM CST 06/06/22 1203 Discharge Summary Chart reviewed For Medical Necessity Does patient have a planned readmission to hospital planned? No Discharge Disposition Home;Inpatient (Acute) Rehab Hospital Specify Facility [facility] Facility Contact Number Contact- Minerva Hurt- [phone] for report- [phone] fax [phone] Equipment/Provider Needs No Home Needs Identified Discharge Additional Assistance Does the patient need discharge transport arranged? No (family to transport to [facility]) Post Discharge Care Provider Post Discharge Care Plan DC Summary and post acute care report has been faxed to next level of careprovider (see Follow Up Providers) Patient is medically stable to discharge home today. Patient will have transportation provided by the patient's brother. Patient instructed to f/u with PCP after release from [facility]. No additional needs noted at this time. TION SALES ADVISOR TION SALES ADVISOR * Frank Bowers MD - 06/29/2022 10:12 AM CST Daily Progress Note Division of Hospital Medicine Name: Adelia Garvin Jr. Today: June 29, 2022 : 1970 Age: 51 y.o. male Admit: 06/04/2022 Bed: [id number] Subjective Chief complaint: NSTEMI Interval History: Pt [...] 06/29/2022 0815 Gross per 24 hour Intake 00807 ml Output 77922 ml Net -664 ml Physical Exam Constitutional: [...] (non-ST elevated myocardial infarction) (CMS/HCC) ([facility]) Assessment & Plan With recurrent chest pain [...] rehab today ESRD (end stage renal disease) ([facility]) ([facility]) Assessment & Plan - Renal consulted, s/p CRRT in the ICU now back on PD. Tolerated well and nephrology following - Trialysis catheter removed - Continue vitamins for renal bone mineral disease. Type 1 diabetes mellitus ([facility]) Assessment & Plan A1c well controlled on [...] start of peritoneal dialysis session Atrial fibrillation ([facility]) ([facility]) Assessment & Plan Converted to NSR overnight [...] including recommendations regarding insulin pump at discharge TION SALES ADVISOR TION SALES ADVISOR * Janelle Romero, OT - 06/29/2022 9:30 [...] not assigned to this patient, please call [phone]. 06/29/22 0930 General Session Type Treatment OT [...] demonstrate modified independence/independence with ADL task completion. TION SALES ADVISOR * Kip Julian PT - 06/29/2022 8:53 AM CST Physical Therapy 06/29/22 0853 General PT Missed Visit Reason Patient declined TION SALES ADVISOR * Frank Bowers MD - 06/28/2022 3:30 PM CST Daily Progress Note Division of Hospital Medicine Name: Adelia Garvin Jr. Today: June 28, 2022 : 1970 Age: 51 y.o. male Admit: 06/04/2022 Bed: [id number] Subjective Chief complaint: NSTEMI Interval History: Pt [...] 06/28/2022 1300 Gross per 24 hour Intake 70537 ml Output 24683 ml Net -851 ml Physical Exam Constitutional: [...] Resolved. * NSTEMI (non-ST elevated myocardial infarction) ([facility]) ([facility]) Assessment & Plan With recurrent chest pain [...] been accepted ESRD (end stage renal disease) ([facility]) ([facility]) Assessment & Plan - Renal consulted, s/p CRRT in the ICU now back on PD. Tolerated well and nephrology following - Trialysis catheter removed - Continue vitamins for renal bone mineral disease. Type 1 diabetes mellitus ([facility]) Assessment & Plan A1c well controlled on [...] increase NPH 45u before PD Atrial fibrillation ([facility]) ([facility]) Assessment & Plan Converted to NSR overnight [...] failure with reduced ejection fraction) ([facility]) Assessment & Plan C/b cardiogenic shock requiring [...] Hb. Acute hypoxemic respiratory failure ([facility]) Assessment & Plan Secondary to ACS and flash pulmonary edema, since resolved and extubated on 06/19. Patient passed barium swallow on 06/21. TION SALES ADVISOR * Shelbie Garcia, RD - 06/28/2022 2:38 [...] Diabetes mellitus type I (HCC) Dialysis patient ([facility]) (HCC) ESRD on dialysis ([facility]) ([facility]) GERD (gastroesophageal reflux disease) Hyperlipidemia Hypertension Sleep [...] of Weight Used for Estimated Protein : [place] Protein Needs Based on g/k.5 Total Protein [...] 06/28/2022 1300 Gross per 24 hour Intake 47955 ml Output 61198 ml Net -851 ml Gastrointestinal Gastrointestinal (WDL): [...] Comments: Heart Healthy Diet Question Answer Comment ([facility]) Diet type Restricted Fat / Sodium Restriction: [...] of his insulin pump. Pt seen by INSTRUCTIONAL TECHNOLOGY SPECIALIST today. Can continue on regular textured foods [...] Stool patterns, Weight changes Shelbie Garcia RD [phone] TION SALES ADVISOR * Carey East MD - 06/27/2022 4:57 PM CST Daily Progress Note Division of Hospital Medicine Name: Adelia Garvin Jr. Today: June 27, 2022 : 1970 Age: 51 y.o. male Admit: 06/04/2022 Bed: [id number] Subjective Chief complaint: CAD s/p PCI, T1DM, [...] 06/27/2022 0745 Gross per 24 hour Intake 81511 ml Output 00289 ml Net -1949 ml Physical Exam Constitutional: [...] transferred to the floor, improving. Atrial fibrillation ([facility]) ([facility]) Assessment & Plan Converted to NSR overnight [...] failure with reduced ejection fraction) ([facility]) Assessment & Plan C/b cardiogenic shock requiring impella in the setting of cath and AHRF 2/2 pulmonary edema, now resolved. TTE demonstrating recovered EF 65% with grade I diastolic dysfunction. - metop as above - continue low dose losartan 12.5mg daily, ok per nephro - volume management per PD ESRD (end stage renal disease) ([facility]) ([facility]) Assessment & Plan - Renal consulted, s/p CRRT in the ICU now back on PD. - Continue vitamins for renal bone mineral disease - continue phoslo Type 1 diabetes mellitus ([facility]) Assessment & Plan A1c well controlled on [...] PD * NSTEMI (non-ST elevated myocardial infarction) ([facility]) ([facility]) Assessment & Plan With recurrent chest pain [...] recs, CM aware and searching for facilities TION SALES ADVISOR * Arleen Andre MD - 06/27/2022 3:50 PM CST ASSESSMENT AND RECOMMENDATIONS ESRD: He is doing well on the current PD regimen. Ultrafilters approximately 3221-4146 ml/day. Continue current regimen Hypokalemia: Start Kcl [...] (mL): 785 mL Fill Volume In (mL): 64631 mL Effluent Volume Out (mL): 83951 ml Balance This Exchange (mL): 1944 mL [...] edema I/O last 2 completed shifts: In: 79969 [P.O.:440; Other:81245] Out: 58427 [Urine:300; Other:05966] I have reviewed current medications and the [...] FERRITIN 2,062 (H) 06/07/2022 Arleen Andre MD pre owned sales consultant Division of Nephrology TION SALES ADVISOR * So Lawrence, OT - 06/27/2022 9:37 [...] not assigned to this patient, please call [phone]. 06/27/22 0937 General Session Type Treatment OT [...] demonstrate modified independence/independence with ADL task completion. TION SALES ADVISOR * Carlos Dupree MD - 06/26/2022 4:13 PM CST Endocrinology & Diabetes Progress Note Patient: Adelia Garvin Jr., 51 y.o. male (: 1970) Room: [place] [id number] ( ) LOS: 22 Adelia Garvin Jr. [...] labs, imaging, and diagnostics independently reviewed in [facility] and commented on below. Lab Results [...] agitation. 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, with keno terminal operator use of insulin, complicated by ESRD on PD, CAD s/p PCI, CHF - HbA1c 7.4% - Uses Omnipod and Dexcom G6 at home, not currently on this- doesn't have the supplies -On significantly higher basal rates on pump at night due to peritoneal dialysis -home settings: Basal rate 0330 >>1.7 0800 >> 0.8 2000 >> 5.8 ICR1:6.5 ISF1:25 [id number] TIA 4 Inpatient glycemic management complicated by [...] ## Discharge Planning - Follow-up with home reel worker -- Carlos Dupree MD Endocrinology, Metabolism, & Lipid Research Contact Info: New Consults: [phone]) General Endocrine (Non-Diabetes): [phone] (Check 'Treatment Team' assignment for Diabetes 1 vs 2 vs 3) Diabetes 1: Diabetes Fellow: [phone] Diabetes 2: Dora Delarosa, APPLIANCE COUNSELOR: [phone] Diabetes 3: See Treatment Team Provider (or call Dora Delarosa, above) Diabetes After-Hours & Weekends: Diabetes Fellow TION SALES ADVISOR * Carey East MD - 06/26/2022 12:39 PM CST Daily Progress Note Division of Hospital Medicine Name: Adelia Garvin Jr. Today: June 26, 2022 : 1970 Age: 51 y.o. male Admit: 06/04/2022 Bed: [id number] Subjective Chief complaint: CAD s/p PCI, T1DM, [...] 06/26/2022 1110 Gross per 24 hour Intake 19220 ml Output 45506 ml Net -1847 ml Physical Exam Constitutional: [...] transferred to the floor, improving. Atrial fibrillation ([facility]) ([facility]) Assessment & Plan Converted to NSR overnight [...] failure with reduced ejection fraction) ([facility]) Assessment & Plan C/b cardiogenic shock requiring impella in the setting of cath and AHRF 2/2 pulmonary edema, now resolved. TTE demonstrating recovered EF 65% with grade I diastolic dysfunction. - metop as above - continue low dose losartan 12.5mg daily, ok per nephro - volume management per PD ESRD (end stage renal disease) ([facility]) ([facility]) Assessment & Plan - Renal consulted, s/p [...] PD * NSTEMI (non-ST elevated myocardial infarction) ([facility]) ([facility]) Assessment & Plan With recurrent chest pain. [...] acute rehab per PT recs, CM aware TION SALES ADVISOR * Carey East MD - 06/25/2022 11:51 AM CDT Daily Progress Note Division of Hospital Medicine Name: Adelia Garvin Jr. Today: June 25, 2022 : 1970 Age: 51 y.o. male Admit: 06/04/2022 Bed: [id number] Subjective Chief complaint: CAD s/p PCI, T1DM, [...] 06/25/2022 0600 Gross per 24 hour Intake 13287 ml Output 18346 ml Net -2404 ml Physical Exam Constitutional: [...] failure with reduced ejection fraction) ([facility]) Assessment & Plan C/b cardiogenic shock requiring impella in the setting of cath and AHRF 2/2 pulmonary edema, now resolved. TTE demonstrating recovered EF 65% with grade I diastolic dysfunction. - metop as above - start low dose losartan 12.5mg daily today, ok per nephro - volume management per PD ESRD (end stage renal disease) ([facility]) ([facility]) Assessment & Plan - Renal consulted, s/p CRRT in the ICU now back on PD. - Trialysis catheter still in place --> removed today - Continue vitamins for renal bone mineral disease. Type 1 diabetes mellitus ([facility]) Assessment & Plan A1c well controlled on [...] today * NSTEMI (non-ST elevated myocardial infarction) ([facility]) ([facility]) Assessment & Plan With recurrent chest pain. [...] daily Acute hypoxemic respiratory failure ([facility]) Assessment & Plan Secondary to ACS and flash pulmonary edema, since resolved and extubated on 06/19. Patient passed barium swallow on 06/21. Cardiogenic shock ([facility]) Assessment & Plan Secondary to NSTEMI, s/p [...] mobility Prior Function Prior Function Level of [place]: Independent with ADLs, Independent functional transfers, Independent [...] not assigned to this patient, please call [phone]. * Carey East MD - 06/24/2022 4:30 PM CDT Daily Progress Note Division of Hospital Medicine Name: Adelia Garvin Jr. Today: June 24, 2022 : 1970 Age: 51 y.o. male Admit: 06/04/2022 Bed: [id number] Subjective Chief complaint: CAD s/p PCI, T1DM, [...] 06/24/2022 0536 Gross per 24 hour Intake 13476 ml Output 79923 ml Net -347 ml Physical Exam Constitutional: [...] agrees with it. Electronically signed by: Félix Chhaal M.D. I have independently reviewed and interpreted: [...] with new chest pressure today. Atrial fibrillation ([facility]) ([facility]) Assessment & Plan Currently rated controlled with [...] failure with reduced ejection fraction) ([facility]) Assessment & Plan C/b cardiogenic shock requiring impella in the setting of cath and AHRF 2/2 pulmonary edema, now resolved. TTE demonstrating recovered EF 65% with grade I diastolic dysfunction. - metop as above - not on NICOLÁS/ARB due to ESRD, d/w nephro - volume management per PD ESRD (end stage renal disease) (CMS/HCC) ([facility]) Assessment & Plan - Renal consulted, s/p [...] Weakness, N/V, diarrhea, chest pain. Resp failure, OATFHD23/18: S/p complex PCI and Impella placement for [...] No Prior Function Prior Function Level of [place]: Independent functional transfers, Independent with ambulation Lives [...] treatment team and contact the PT or GOLD STAMPER currently assigned to this patient. If a physical therapy clinician is not assigned to this patient, please call [phone]. * Carey East MD - 06/23/2022 4:37 PM CDT Daily Progress Note Division of Hospital Medicine Name: Adelia Garvin Jr. Today: June 23, 2022 : 1970 Age: 51 y.o. male Admit: 06/04/2022 Bed: [id number] Subjective Chief complaint: CAD s/p PCI, T1DM, [...] 06/23/2022 0625 Gross per 24 hour Intake 20897 ml Output 19386 ml Net -2575 ml Physical Exam Constitutional: [...] EKG/Min 100 BPM Atrial Rate 100 BPM TX-Interval (MSEC) 182 ms QRS-Interval (MSEC) 106 ms QT-Interval (MSEC) 380 ms QTc 490 ms R Esopus -47 degrees T Esopus 105 degrees Diagnosis Sinus rhythm with Premature [...] since removed on 06/10. Resolved. Atrial fibrillation ([facility]) ([facility]) Assessment & Plan Currently rated controlled with metoprolol, CHADsVASc of 4 not on anticoagulation prior to admission. - cardiology consulted - metop as elsewhere Acute on chronic HFrEF (heart failure with reduced ejection fraction) ([facility]) Assessment & Plan C/b cardiogenic shock requiring impella in the setting of cath and AHRF 2/2 pulmonary edema, now resolved. TTE demonstrating recovered EF 65% with grade I diastolic dysfunction. - consolidate metoprolol today: 25 q6h --> 50mg BID - not on NICOLÁS/ARB due to ESRD, will d/w nephro - volume management per PD ESRD (end stage renal disease) ([facility]) ([facility]) Assessment & Plan - Renal consulted, s/p [...] Hb. Acute hypoxemic respiratory failure ([facility]) Assessment & Plan Secondary to ACS and flash pulmonary edema, since resolved and extubated on 06/19. Patient passed barium swallow on 06/21. Type 1 diabetes mellitus ([facility]) Assessment & Plan A1c well controlled on [...] use * NSTEMI (non-ST elevated myocardial infarction) ([facility]) ([facility]) Assessment & Plan With recurrent chest pain. [...] gout, BEN on CPAP initially presented to [facility] for generalized weakness, n/v, diarrhea, and chest pain now being transferred for LHC/PCI 06/06. Objective Past Medical History: Diagnosis Date CAD (coronary artery disease) Chest pain Diabetes mellitus (HCC) Diabetes mellitus type I (HCC) Dialysis patient ([facility]) (HCC) ESRD on dialysis ([facility]) (HCC) GERD (gastroesophageal reflux disease) Hyperlipidemia Hypertension [...] of Weight Used for Estimated Protein : [place] Protein Needs Based on g/k.5 Total Protein [...] 06/23/2022 0625 Gross per 24 hour Intake 56076 ml Output 71445 ml Net -2575 ml Gastrointestinal Gastrointestinal (WDL): [...] Comments: Heart Healthy Diet Question Answer Comment ([facility]) Diet type Restricted Fat / Sodium Restriction: [...] Supplement tolerance Ronny Vasquez MS RDN LD Assistant Corporation Counsel RD number [phone] * Luiz Lewis DO - 06/22/2022 8:22 [...] at 06/22/20221944 Gross per 24 hour Intake 44436 ml Output 56979 ml Net -2209 ml Constitutional - chronically [...] Impella since removed on 06/10. Atrial fibrillation ([facility]) ([facility]) Assessment & Plan -Currently rated controlled with metoprolol, CHADsVASc of 4 not on anticoagulation prior to admission. -Follow cardiology for initiation of AC. Acute on chronic HFrEF (heart failure with reduced ejection fraction) ([facility]) Assessment & Plan -With acute exacerbation complicated by pulmonary edema since resolved. -Repeat TTE following Impella removal showed recovered EF of 65% with grade I diastolic dysfunction. -Continue metoprolol tartrate, start GDMT per cardiology. ESRD (end stage renal disease) (CMS/HCC) ([facility]) Assessment & Plan -Renal consulted, s/p CRRT [...] aspirin, Plavix and atorvastatin. Luiz Lewis DO [facility] Medicine * Tyra De La Torre MD - 06/22/2022 4:17 PM CDT CCU DAILY PROGRESS Patient: Adelia Garvin Jr. Room: [place] [address]/[place] [address] Date: 06/22/2022 Summary Statement: Adelia Garvin Jr. is a 51 y.o. male with a history of CHF (EF 50% 2016), Afib (not on AC), HTN, CAD s/p stent 04/06 and 3 stent 12/07, T1DM (insulin pump at home), ESRD on PD, HLD, GERD, hyperparathyroidism, DDD, OA, gout, BEN on CPAP initially presented to OSH for n/v and chest pain, transferred to [facility] for LHC/PCI, who presented to CCU s/p [...] 06/22/2022 0500 Gross per 24 hour Intake 54598 ml Output 78121 ml Net -1759 ml Ventilator Settings: N/a [...] in anterior wall and anterior septem sugegsting CAD/[place] in the LAD territory. 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 #Nutrition - continue tube feeds - INSTRUCTIONAL TECHNOLOGY SPECIALIST eval - remove NGT and restart diet [...] #Anemia Hgb 9.5 on admission to [facility] and 7.8 on arrival to CCU. Hgb [...] plan with the ICU team and other medical/financial services education consultant staff. * Tyra De La Torre MD - 06/21/2022 9:15 AM CDT CCU DAILY PROGRESS Patient: Adelia Garvin Jr. Room: [id number] Date: 06/21/2022 Summary Statement: Adelia Garvin Jr. is a 51 y.o. male with a history of CHF (EF 50% 2016), Afib (not on AC), HTN, CAD s/p stent 04/06 and 3 stent 12/07, T1DM (insulin pump at home), ESRD on PD, HLD, GERD, hyperparathyroidism, DDD, OA, gout, BEN on CPAP initially presented to OSH for n/v and chest pain, transferred to [facility] for LHC/PCI, who presented to CCU s/p [...] in anterior wall and anterior septem sugegsting CAD/[place] in the LAD territory. 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 #Nutrition - continue tube feeds - INSTRUCTIONAL TECHNOLOGY SPECIALIST eval - remove NGT and restart diet [...] held iso diarrhea; transition to PO pending [facility] [place] - glargine 33U, humalog 6U q4h + SSI - if TF: humalog to 8u q4h - if PO: transition short-acting to humalog 4u post-meal - continue to adjust regimen as patient transitions from TF to oral intake HEME/ONC #Anemia Hgb 9.5 on admission to [facility] and 7.8 on arrival to CCU. Hgb [...] plan with the ICU team and other medical/financial services education consultant staff. * Jess Redmond, PT - 06/21/2022 7:55 AM CDT Physical Therapy 06/21/22 7655 General PT Missed Visit Reason Bedrest Recommendation/Plan [...] DAILY PROGRESS Patient: Adelia Garvin Jr. Room: [place] [address]/[place] [address] Date: 06/20/2022 Summary Statement: Adelia Garvin Jr. is a 51 y.o. male with a history of CHF (EF 50% 2016), Afib (not on AC), HTN, CAD s/p stent 04/06 and 3 stent 12/07, T1DM (insulin pump at home), ESRD on PD, HLD, GERD, hyperparathyroidism, DDD, OA, gout, BEN on CPAP initially presented to OSH for n/v and chest pain, transferred to [facility] for LHC/PCI, who presented to CCU s/p [...] gtt - continue amio gtt 0.5 - INSTRUCTIONAL TECHNOLOGY SPECIALIST eval for possible removal of NGT - [...] in anterior wall and anterior septem sugegsting CAD/[place] in the LAD territory. LVEF is in [...] gout, BEN on CPAP initially presented to [facility] for n/v and chest pain, transferred to [facility] for LHC/PCI, who presented to the CCU [...] Pt became acutely hypoxic while in the laborer syrup machine, required intubation; CXR prior to cath showed [...] while intubated - restart tube feeds - INSTRUCTIONAL TECHNOLOGY SPECIALIST eval - remove NGT and restart diet [...] #Anemia Hgb 9.5 on admission to [facility] and 7.8 on arrival to CCU. Hgb [...] A/C was because he started plavix and auto rental clerk decided to stop Eliquis. DIAGNOSTIC REVIEW Blood [...] plan with the ICU team and other medical/financial services education consultant staff. * Bobby Mary MD - [...] 93% I/O last 2 completed shifts: In: 91227.4 [I.V.:1014.4; Other:31609; NG/GT:190; IV Piggyback:420] Out: 47971 [Other:63665] I/O this shift: In: 480.2 [I.V.:480.2] Out: [...] DAILY PROGRESS Patient: Adelia Garvin Jr. Room: [id number] Date: 06/19/2022 Summary Statement: Adelia Garvin Jr. is a 51 y.o. male with a history of CHF (EF 50% 2016), Afib (not on AC), HTN, CAD s/p stent 04/06 and 3 stent 12/07, T1DM (insulin pump at home), ESRD on PD, HLD, GERD, hyperparathyroidism, DDD, OA, gout, BEN on CPAP initially presented to OSH for n/v and chest pain, transferred to [facility] for LHC/PCI, who presented to CCU s/p [...] 06/19/2022 0500 Gross per 24 hour Intake 57009.7 ml Output 60521 ml Net -2782.3 ml Ventilator Settings: 20/500/80/12 [...] in anterior wall and anterior septem sugegsting CAD/[place] in the LAD territory. LVEF is in [...] gout, BEN on CPAP initially presented to [facility] for n/v and chest pain, transferred to [facility] for LHC/PCI, who presented to the CCU [...] Pt became acutely hypoxic while in the laborer syrup machine, required intubation; CXR prior to cath showed [...] #Anemia Hgb 9.5 on admission to [facility] and 7.8 on arrival to CCU. Hgb [...] plan with the ICU team and other medical/financial services education consultant staff. * Jeffrey Green MD - 06/18/2022 6:17 AM CDT CCU DAILY PROGRESS Patient: Adelia Garvin Jr. Room: [id number] Date: 06/18/2022 Summary Statement: Adelia Garvin Jr. is a 51 y.o. male with a history of CHF (EF 50% 2017), Afib (not on AC), HTN, CAD s/p stent 04/06 and 3 stent 12/07, T1DM (insulin pump at home), ESRD on PD, HLD, GERD, hyperparathyroidism, DDD, OA, gout, BEN on CPAP initially presented to OSH for n/v and chest pain, transferred to [facility] for LHC/PCI, who presented to CCU s/p [...] 06/18/2022 0500 Gross per 24 hour Intake 13905.41 ml Output 47752 ml Net 897.41 ml Ventilator Settings: 20/500/80/12 [...] in anterior wall and anterior septem sugegsting CAD/[place] in the LAD territory. LVEF is in [...] gout, BEN on CPAP initially presented to [facility] for n/v and chest pain, transferred to [facility] for LHC/PCI, who presented to the CCU [...] Pt became acutely hypoxic while in the laborer syrup machine, required intubation; CXR prior to cath showed [...] #Anemia Hgb 9.5 on admission to [facility] and 7.8 on arrival to CCU. Hgb [...] plan with the ICU team and other medical/financial services education consultant staff. * Jeffrey Green MD - 06/17/2022 6:39 AM CDT CCU DAILY PROGRESS Patient: Adelia Garvin Jr. Room: [id number] Date: 06/17/2022 Summary Statement: Adelia Garvin Jr. is a 51 y.o. male with a history of CHF (EF 50% 2016), Afib (not on AC), HTN, CAD s/p stent 04/06 and 3 stent 12/07, T1DM (insulin pump at home), ESRD on PD, HLD, GERD, hyperparathyroidism, DDD, OA, gout, BEN on CPAP initially presented to OSH for n/v and chest pain, transferred to [facility] for LHC/PCI, who presented to CCU s/p [...] 0-400 mcg/hr, Last Rate: 200 mcg/hr (06/16/22 3823) heparin, 0-33 Units/kg/hr, Last Rate: 10.5 Units/kg/hr [...] in anterior wall and anterior septem sugegsting CAD/W[place] in the LAD territory. LVEF is in [...] gout, BEN on CPAP initially presented to [facility] for n/v and chest pain, transferred to [facility] for LHC/PCI, who presented to the CCU [...] Pt became acutely hypoxic while in the laborer syrup machine, required intubation; CXR prior to cath showed [...] #Anemia Hgb 9.5 on admission to [facility] and 7.8 on arrival to CCU. Hgb [...] plan with the ICU team and other medical/financial services education consultant staff. * Tyra De La Torre MD - 06/16/2022 5:49 AM CDT CCU DAILY PROGRESS Patient: Adelia Garvin Jr. Room: [place] [address]/[place] [address] Date: 06/16/2022 Summary Statement: Adelia Garvin Jr. is a 51 y.o. male with a history of CHF (EF 50% 2016), Afib (not on AC), HTN, CAD s/p stent 04/06 and 3 stent 12/07, T1DM (insulin pump at home), ESRD on PD, HLD, GERD, hyperparathyroidism, DDD, OA, gout, BEN on CPAP initially presented to OSH for n/v and chest pain, transferred to [facility] for LHC/PCI, who presented to CCU s/p [...] in anterior wall and anterior septem sugegsting CAD/WY in the LAD territory. LVEF is in [...] gout, BEN on CPAP initially presented to [facility] for n/v and chest pain, transferred to [facility] for LHC/PCI, who presented to the CCU [...] Pt became acutely hypoxic while in the laborer syrup machine, required intubation; CXR prior to cath showed [...] #Anemia Hgb 9.5 on admission to [facility] and 7.8 on arrival to CCU. Hgb [...] plan with the ICU team and other medical/financial services education consultant staff. * Zoila Sainz - 06/15/2022 4:15 PM CDT 06/15/22 1614 PT Last Visit PT Missed Visit Reason Sedated (pt intubated/sedated) Recommendation/Plan PT Frequency Monitor status PT - Next Appointment 06/17/22 Cosigned by Faby Poole PT at 06/15/2022 4:45 PM CDT * Tyra De La Torre MD - 06/15/2022 5:23 AM CDT CCU DAILY PROGRESS Patient: Adelia Garvin Jr. Room: [id number] Date: 06/15/2022 Summary Statement: Adelia Garvin Jr. is a 51 y.o. male with a history of CHF (EF 50% 2017), Afib (not on AC), HTN, CAD s/p stent 04/06 and 3 stent 12/07, T1DM (insulin pump at home), ESRD on PD, HLD, GERD, hyperparathyroidism, DDD, OA, gout, BEN on CPAP initially presented to OSH for n/v and chest pain, transferred to [facility] for LHC/PCI, who presented to CCU s/p [...] in anterior wall and anterior septem sugegsting CAD/WY in the LAD territory. LVEF is in [...] gout, BEN on CPAP initially presented to [facility] for n/v and chest pain, transferred to [facility] for LHC/PCI, who presented to the CCU [...] Pt became acutely hypoxic while in the laborer syrup machine, required intubation; CXR prior to cath showed [...] #Anemia Hgb 9.5 on admission to [facility] and 7.8 on arrival to CCU. Hgb [...] plan with the ICU team and other medical/financial services education consultant staff. * Lavern Morrison MD - 06/14/2022 4:39 PM CDT CCU DAILY PROGRESS Patient: Adelia Garvin Jr. Room: [id number] Date: 06/14/2022 Summary Statement: Adelia Garvin Jr. is a 51 y.o. male with a history of CHF (EF 50% 2016), Afib (not on AC), HTN, CAD s/p stent 04/06 and 3 stent 12/07, T1DM (insulin pump at home), ESRD on PD, HLD, GERD, hyperparathyroidism, DDD, OA, gout, BEN on CPAP initially presented to OSH for n/v and chest pain, transferred to [facility] for LHC/PCI, who presented to CCU s/p [...] in anterior wall and anterior septem sugegsting CAD/WY in the LAD territory. LVEF is in [...] gout, BEN on CPAP initially presented to [facility] for n/v and chest pain, transferred to [facility] for LHC/PCI, who presented to the CCU [...] Pt became acutely hypoxic while in the laborer syrup machine, required intubation; CXR prior to cath showed [...] #Anemia Hgb 9.5 on admission to [facility] and 7.8 on arrival to CCU. Hgb [...] plan with the ICU team and other medical/financial services education consultant staff. * Payam Johnson, OPERATION SUPERVISOR - 06/14/2022 11:56 AM CDT 06/14/22 1135 [...] DAILY PROGRESS Patient: Adelia Garvin Jr. Room: [id number] Date: 06/13/2022 Summary Statement: Adelia Garvin Jr. is a 51 y.o. male with a history of CHF (EF 50% 2016), Afib (not on AC), HTN, CAD s/p stent 04/06 and 3 stent 12/07, T1DM (insulin pump at home), ESRD on PD, HLD, GERD, hyperparathyroidism, DDD, OA, gout, BEN on CPAP initially presented to OSH for n/v and chest pain, transferred to [facility] for LHC/PCI, who presented to CCU s/p [...] in anterior wall and anterior septem sugegsting CAD/WY in the LAD territory. LVEF is in [...] gout, BEN on CPAP initially presented to [facility] for n/v and chest pain, transferred to [facility] for LHC/PCI, who presented to the CCU [...] Pt became acutely hypoxic while in the laborer syrup machine, required intubation; CXR prior to cath showed [...] #Anemia Hgb 9.5 on admission to [facility] and 7.8 on arrival to CCU. Hgb [...] plan with the ICU team and other medical/financial services education consultant staff. * Olga Bernstein, PT - 06/13/2022 9:14 AM CDT Physical Therapy 06/13/22 0913 General PT Missed Visit Reason Bedrest;Sedated (impella, CVVHD) Recommendation/Plan PT Frequency Monitor status PT - Next Appointment 06/15/22 * Jeffrey Green MD - 06/12/2022 4:58 AM CDT CCU DAILY PROGRESS Patient: Adelia Garvin Jr. Room: [place] [address] Date: 06/12/2022 Summary Statement: Adelia Garvin Jr. is a 51 y.o. male with a history of CHF (EF 50% 2016), Afib (not on AC), HTN, CAD s/p stent 04/06 and 3 stent 12/07, T1DM (insulin pump at home), ESRD on PD, HLD, GERD, hyperparathyroidism, DDD, OA, gout, BEN on CPAP initially presented to OSH for n/v and chest pain, transferred to [facility] for LHC/PCI, who presented to CCU s/p [...] in anterior wall and anterior septem sugegsting CAD/WY in the LAD territory. LVEF is in [...] gout, BEN on CPAP initially presented to [facility] for n/v and chest pain, transferred to [facility] for LHC/PCI, who presented to the CCU [...] Pt became acutely hypoxic while in the laborer syrup machine, required intubation; CXR prior to cath showed [...] #Anemia Hgb 9.5 on admission to [facility] and 7.8 on arrival to CCU. Hgb [...] plan with the ICU team and other medical/financial services education consultant staff. * Jeffrey Green MD - 06/11/2022 2:46 AM CDT CCU DAILY PROGRESS Patient: Adelia Garvin Jr. Room: [id number] Date: 06/11/2022 Summary Statement: Adelia Garvin Jr. is a 51 y.o. male with a history of CHF (EF 50% 2016), Afib (not on AC), HTN, CAD s/p stent 04/06 and 3 stent 12/07, T1DM (insulin pump at home), ESRD on PD, HLD, GERD, hyperparathyroidism, DDD, OA, gout, BEN on CPAP initially presented to OSH for n/v and chest pain, transferred to [facility] for LHC/PCI, who presented to CCU s/p complex PCI with impella and intubated. SUBJECTIVE Overnight: - Impella removed -[place] removed -Veletri weaned off -Tube feeds started [...] in anterior wall and anterior septem sugegsting CAD/W[place] in the LAD territory. LVEF is in [...] gout, BEN on CPAP initially presented to [facility] for n/v and chest pain, transferred to [facility] for LHC/PCI, who presented to the CCU s/p complex PCI complicated by hypoxemic respiratory failure requiring intubation, impella support, veletri gtt. Active Issues: NEURO #Sedation On propofol, fentanyl, versed gtt CARDIAC #Septic shock #Leukocytosis Increasing pressor requirement, white count, hypothermia overnight 06/10 concerning for septic shock. Distributive shock from RP bleed vs cardiogenic shock also possible -CXR -Vanc(06/11-), kalyah (06/05-) -Echo -serial SCVO2 -CT C/A/P; will [...] Pt became acutely hypoxic while in the laborer syrup machine, required intubation; CXR prior to cath showed [...] #Anemia Hgb 9.5 on admission to [facility] and 7.8 on arrival to CCU. Hgb [...] plan with the ICU team and other medical/financial services education consultant staff. * Tyra De La Torre MD - 06/10/2022 12:46 PM CDT CCU DAILY PROGRESS Patient: Adelia Garvin Jr. Room: [facility] CARDIAC CATH ROOM/NO* Date: 06/10/2022 Summary Statement: [...] n/v and chest pain, transferred to [facility] for LHC/PCI, who presented to CCU s/p [...] in anterior wall and anterior septem sugegsting CAD/WY in the LAD territory. LVEF is in [...] gout, BEN on CPAP initially presented to [facility] for n/v and chest pain, transferred to [facility] for LHC/PCI, who presented to the CCU [...] Pt became acutely hypoxic while in the laborer syrup machine, required intubation; CXR prior to cath showed [...] #Anemia Hgb 9.5 on admission to [facility] and 7.8 on arrival to CCU. Hgb [...] plan with the ICU team and other medical/financial services education consultant staff. * Lavern Morrison MD - 06/09/2022 6:31 AM CDT CCU DAILY PROGRESS Patient: Adelia Garvin Jr. Room: [id number] Date: 06/09/2022 Summary Statement: Adelia Garvin Jr. is a 51 y.o. male with a history of CHF (EF 50% 2017), Afib (not on AC), HTN, CAD s/p stent 8/17 and 3 stent 12/07, T1DM (insulin pump at home), ESRD on PD, HLD, GERD, hyperparathyroidism, DDD, OA, gout, BEN on CPAP initially presented to OSH for n/v and chest pain, transferred to [facility] for LHC/PCI, who presented to CCU s/p [...] in anterior wall and anterior septem sugegsting CAD/WY in the LAD territory. LVEF is in [...] gout, BEN on CPAP initially presented to [facility] for n/v and chest pain, transferred to [facility] for LHC/PCI, who presented to the CCU [...] Pt became acutely hypoxic while in the laborer syrup machine, required intubation; CXR prior to cath showed [...] #Anemia Hgb 9.5 on admission to [facility] and 7.8 on arrival to CCU. Hgb [...] plan with the ICU team and other medical/financial services education consultant staff. * Roberto Carlos Newberry PT - 06/08/2022 3:00 PM CDT Physical Therapy 06/08/22 1500 General PT Missed Visit Reason Sedated;Other (comment) (pt intubated, sedated, primaflex CVVHD.) * Marcelina Pickard NP - 06/08/2022 7:58 AM CDT PROCEDURE: [facility] w/ complex PCI and Impella CP [...] statin therapy. Follow up appt with primary auto rental clerk, Dr Petit in 2-4 weeks post discharge. LOIDA Dos Santos Interventional Cardiology Nurse Practitioner [phone] Please refer to [facility] Blood [...] DAILY PROGRESS Patient: Adelia Garvin Jr. Room: [id number] Date: 06/08/2022 Summary Statement: Adelia Garvin Jr. is a 51 y.o. male with a history of CHF (EF 50% 2016), Afib (not on AC), HTN, CAD s/p stent 04/06 and 3 stent 12/07, T1DM (insulin pump at home), ESRD on PD, HLD, GERD, hyperparathyroidism, DDD, OA, gout, BEN on CPAP initially presented to OSH for n/v and chest pain, transferred to [facility] for LHC/PCI, who presented to CCU s/p [...] 06/08/2022 0500 Gross per 24 hour Intake 53123.23 ml Output 22646 ml Net -328.77 ml Ventilator Settings: 20/500/80/12 [...] gout, BEN on CPAP initially presented to [facility] for n/v and chest pain, transferred to [facility] for LHC/PCI, who presented to the CCU [...] Pt became acutely hypoxic while in the laborer syrup machine, required intubation; CXR prior to cath showed [...] #Anemia Hgb 9.5 on admission to [facility] and 7.8 on arrival to CCU. Hgb [...] plan with the ICU team and other medical/financial services education consultant staff. * Jess Redmond, PT - 06/07/2022 11:48 AM CDT Physical Therapy 06/07/22 1148 General PT Missed Visit Reason Procedure/testing/appointment (Associate Producer) * Conrad Akers MD - 06/07/2022 9:32 AM CDT MICU Attending Daily Note Name: Adelia Garvin Jr. Bed: [id number] : 1970 Age: 51 y.o. male Admit: [...] pre-medications for contrast allergy in anticipation of [facility] today. Scheduled Meds:amLODIPine, 10 mg, oral, [...] 06/07/2022 0800 Gross per 24 hour Intake 91488.7 ml Output 76794 ml Net -1579.3 ml 24hr Min/Max: Temp [...] performed whenever feasible but would not delay [facility] For this Continue meropenem for gram [...] plan with the ICU team and other medical/financial services education consultant staff. Conrad Akers MD Pulmonary/Critical Care * Girish Kirk MD - 06/07/2022 7:56 AM CDT [facility] Acute and Critical Care Surgery (ACCS) [...] Is&Os: I/O last 2 completed shifts: In: 60253.3 [P.O.:780; I.V.:444.3; Other:08406; IV Piggyback:100] Out: 95552 [Other:64138] No intake/output data recorded. Physical Exam: BP [...] evaluation. The pelvis is excluded from the [id number] and unavailable for interpretation. A rounded density [...] essential hypertension Hyperlipidemia 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[place] artery of [place] heart with stable angina pectoris (CMS/HCC) (HCC) [...] OA, gout, BEN on CPAP [facility] generalized weakness, n/v, diarrhea, and chest pain, transferredto [facility] on 06/05 for LHC/PCI scheduled for 06/06. Pt was found to have an NSTEMI at OSH and was continued on hep gtt, asa81, plavix at [facility]. He was transferred to MICU after he [...] GB pathology - Serial abdominal exams - [facility] will continue to follow The care plan above has been or will be discussed with attending physician. Any changes will be communicated to the primary team. Please contact the [facility] Inpatient Consult Service at the number listed [...] patient today, as he was in the laborer syrup machine upon my arrival. Later chart reviewrevealed a [...] MD Instructor, Acute and Critical Care Surgery [facility] [employer] * Amira Davenport RN - 06/06/2022 12:04 PM CDT CM Initial Assessment Interview Note Information Obtained From: Patient (06/06/22 1156) Admission Source: from [facility] Impression: Hx - CHF, Afib, HTN, CAD [...] (name, phone, availablity): Brother Jude Gallardo - [phone] Home Care Services: No Durable Medical Equipment: [...] Collaboration with patient, MD, direct care nurse, Obstetrician Gynecologist, and other members of the health care team to assure needed interventions completed. 2. Return patient to optimal level of self-care post discharge. 3. Machine Adjuster Leader Case Trim will follow for Discharge Planning - interventions [...] Daily Note Name: Adelia Garvin Jr. Bed: [id number] : 1970 Age: 51 y.o. male Admit: [...] 06/06/2022 0900 Gross per 24 hour Intake 69001.47 ml Output 45229 ml Net -2112.53 ml 24hr Min/Max: Temp [...] EKG/Min 73 BPM Atrial Rate 73 BPM TX-Interval (MSEC) 184 ms QRS-Interval (MSEC) 106 ms QT-Interval (MSEC) 442 ms QTc 486 ms P Esopus 49 degrees R Esopus -33 degrees T Esopus 87 degrees Diagnosis Normal sinus rhythm Possible [...] Magnesium 2.1 1.4 - 2.5 mg/dL POCT PP-A-VHX-GLU-HCT, WB - ISTAT Collection Time: 06/05/22 3:22 [...] findings include: Troponin peak at 4800 NT-proBNP 14815 CXR with bilateral fluffy opacities RUQ US [...] HIDA scan when feasible, would not delay [facility] for this Continue meropenem for gram negative and anaerobic coverage Consult [facility]B pending [facility] plans Will almost certainly need to [...] control Wean O2 as tolerated, currently on [place] Hypertensive urgency/emergency With associated flash pulmonary edema [...] plan with the ICU team and other medical/financial services education consultant staff. Conrad Akers MD Pulmonary/Critical Care [...] REMOVE PERC ARTERIAL VAD (IMPELLA), DIFFERENT SESSION [id number] Cosigned by Champ Osborne MD PhD at 06/10/2022 10:55 AM CDT Source Note - Jeffrey Green MD - 06/07/2022 2:03 PM CDT . CCU ADMISSION HISTORY AND PHYSICAL Patient: Adelia Garvin Jr. Room: [facility] CARDIAC CATH ROOM/NO* Date: 06/07/2022 SUBJECTIVE CCU INDICATION: Cardiogenic shock HISTORY OF PRESENT ILLNESS Adelia Garvin Jr. is a 51 y.o. male with a history of CHF (EF 50% 2016), Afib (not on AC), HTN, CAD s/p stent 04/06 and 3 stent 12/07, T1DM (insulin pump at home), ESRD on PD, HLD, GERD, hyperparathyroidism, DDD, OA, gout, BEN on CPAP initially presented to [facility] for n/v and chest pain, transferred to [facility] for LHC/PCI, now presenting to CCU s/p complex PCI with impella and intubated. At the OSH he presented with 3d generalized weakness, chills, ROONEY, n/v, chest pain relieved by sublingual ntg. His labs were notable for trop 1.0-->1.09-->0.729, BNP 35344. He had a CT CAP showing cholelithiasis [...] circumflex as optimal treatment, prompting transfer to [place]. He arrived at [place] 06/05. EKG showed sinus bradycardia, 1st deg [...] (HCC) Diabetes mellitus type I ([facility]) Dialysis patient ([facility]) (HCC) ESRD on dialysis ([facility]) ([facility]) GERD (gastroesophageal reflux disease) Hyperlipidemia Hypertension Sleep [...] 06/07/2022 1100 Gross per 24 hour Intake 23372.04 ml Output 19136 ml Net -1701.96 ml REVIEW OF LABORATORY [...] gout, BEN on CPAP initially presented to [facility] for n/v and chest pain, transferred to [facility] for LHC/PCI, now presenting to CCU s/p [...] Pt became acutely hypoxic while in the laborer syrup machine, required intubation; CXR prior to cath showed [...] PHYSICAL Patient: Adelia Garvin Jr. Room: [facility] CARDIAC CATH ROOM/NO* Date: 06/07/2022 SUBJECTIVE CCU INDICATION: Cardiogenic shock HISTORY OF PRESENT ILLNESS Adelia Garvin Jr. is a 51 y.o. male with a history of CHF (EF 50% 2017), Afib (not on AC), HTN, CAD s/p stent 04/06 and 3 stent 12/07, T1DM (insulin pump at home), ESRD on PD, HLD, GERD, hyperparathyroidism, DDD, OA, gout, BEN on CPAP initially presented to [facility] for n/v and chest pain, transferred to [facility] for LHC/PCI, now presenting to CCU s/p complex PCI with impella and intubated. At the OSH he presented with 3d generalized weakness, chills, ROONEY, n/v, chest pain relieved by sublingual ntg. His labs were notable for trop 1.0-->1.09-->0.729, BNP 77053. He had a CT CAP showing cholelithiasis [...] circumflex as optimal treatment, prompting transfer to [place]. He arrived at [place] 06/05. EKG showed sinus bradycardia, 1st deg [...] Diabetes mellitus type I (HCC) Dialysis patient ([facility]) (HCC) ESRD on dialysis ([facility]) ([facility]) GERD (gastroesophageal reflux disease) Hyperlipidemia Hypertension Sleep [...] 06/07/2022 1100 Gross per 24 hour Intake 46777.04 ml Output 26021 ml Net -1701.96 ml REVIEW OF LABORATORY [...] gout, BEN on CPAP initially presented to [facility] for n/v and chest pain, transferred to [facility] for LHC/PCI, now presenting to CCU s/p [...] Pt became acutely hypoxic while in the laborer syrup machine, 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 [place]-Liv catheter reviewed that shows adequate cardiac output [...] plan with the ICU team and other medical/financial services education consultant staff. * Marcelina Pickard NP - 06/07/2022 10:26 AM CDT I have reviewed the H&P, examined the patient, and endorse the findings as written. Plan of Care : Based on the above findings, I consider Adelia Garvin Jr. to be an acceptable risk for : Procedure(s): PCI MARIELLA MAJOR CORONARY C9600 - [id number] Cosigned by Champ Osborne MD PhD at [...] gout, BEN on CPAP initially presented to [facility] for generalized weakness, n/v, diarrhea, and chest pain, transferred to [facility] for LHC/PCI scheduled for 06/06, and presenting to the MICU after he was placed on NIPPV during an ACT for hypoxic respiratory failure. At OSH, pt presented w 3d of generalized weakness, loss of appetite, chills, ROONEY, n/v/d, and intermittent chest pain relieved by sublingual ntg. Labs at OSH notable for WBC 6.1, hgb 10.2, plt 206, trop I 1.0->1.09->0.729, BNP 55392. CTAP cholelithiasis w mild gallbladder distension, airspace [...] tertiary center. Pt was transferred to [facility] floor overnight. Labs notable for Na 129, [...] (coronary artery disease) Chest pain Diabetes mellitus ([facility]) Diabetes mellitus type I ([facility] Dialysis patient ([facility]) ESRD on dialysis ([facility]) GERD (gastroesophageal reflux disease) Hyperlipidemia Hypertension Sleep [...] 0659 06/05/22 0700 - 06/06/22 0659 Shift 1627-0431 3746-8915 24 Hour Total 2834-2402 4066-3152 24 Hour Total INTAKE P.O. 60 60 Other 20094 88687 Shift Total(mL/kg) 28146(83.5) 10221(83.5) OUTPUT Urine 0 0 Other 41770 61738 Stool 0 0 Shift Total(mL/kg) 96508(87.7) 53901(87.7) NET -603 -603 Weight (kg) 142 142 [...] Magnesium 2.1 1.4 - 2.5 mg/dL POCT FN-A-BBI-GLU-HCT, WB - ISTAT Collection Time: 06/05/22 3:22 [...] OSH with NSTEMI, CAP, transferred to [facility] for LHC/PCI scheduled for 06/06, andpresenting to [...] Trop downtrending since admission. EKG unchanged. - [facility] 06/06 at 10:30am (NPO [place]) - [...] gout, BEN on CPAP initially presented to [facility] for generalized weakness, n/v, diarrhea, and chest pain, transferred to [facility] for LHC/PCI scheduled for 06/06, and presenting to the MICU after he was placed on NIPPV during an ACT for hypoxic respiratory failure. At OSH, pt presented w 3d of generalized weakness, loss of appetite, chills, ROONEY, n/v/d, and intermittent chest pain relieved by sublingual ntg. Labs at OSH notable for WBC 6.1, hgb 10.2, plt 206, trop I 1.0->1.09->0.729, BNP 22684. CTAP cholelithiasis w mild gallbladder distension, airspace [...] tertiary center. Pt was transferred to [facility] floor overnight. Labs notable for Na 129, [...] (coronary artery disease) Chest pain Diabetes mellitus ([facility]) Diabetes mellitus type I ([facility]) Dialysis patient ([facility]) ESRD on dialysis ([facility]) GERD (gastroesophageal reflux disease) Hyperlipidemia Hypertension Sleep [...] 0659 06/05/22 0700 - 06/06/22 0659 Shift 1124-9899 7218-3829 24 Hour Total 2656-6896 6309-1397 24 Hour Total INTAKE P.O. 60 60 Other 39717 29700 Shift Total(mL/kg) 40682(83.5) 04839(83.5) OUTPUT Urine 0 0 Other 24818 39933 Stool 0 0 Shift Total(mL/kg) 72752(87.7) 99138(87.7) NET -603 -603 Weight (kg) 142 142 [...] Magnesium 2.1 1.4 - 2.5 mg/dL POCT HD-S-GWB-GLU-HCT, WB - ISTAT Collection Time: 06/05/22 3:22 [...] OSH with NSTEMI, CAP, transferred to [facility] for LHC/PCI scheduled for 06/06, andpresenting to [...] colchicine 0.6 3x weekly due to n/v/diarrhea #EBN: cont CPAP #GERD: home famotidine 40 and [...] plan with the ICU team and other medical/financial services education consultant staff. * Russ Milner MD - 06/05/2022 12:51 AM CDT Cardiology History and Physical - General Cardiology Patient Name: Adeliafabi Garvin Jr. : 1970 Date of Service: [...] gout, BEN on CPAP initially presented to [facility] for generalized weakness, n/v, diarrhea, and chest pain now being transferred for LHC/PCI 06/06. Patient initially presented with generalized weakness for the last 3 days. He then began to endorsen/v and diarrhea as well as chest pain which waxes and wanes and improves with sublingual ntg. He also reported decreased appetite, chills, dyspnea with exertion, and nonproductive cough. Patient follows with [facility] for cardiology. He [...] 105, Lipase 65, troponin I 1.0->1.09->0.729, BNP 29198. Covid, influenza negative. CXR showed left basilar [...] (coronary artery disease), Chest pain, Diabetes mellitus ([facility]), Diabetes mellitus type I ([facility]), Dialysis patient ([facility]), ESRD on dialysis ([facility]),GERD (gastroesophageal reflux disease), Hyperlipidemia, Hypertension, Sleep apnea, [...] gout, BEN on CPAP initially presented to [facility] for generalized weakness, n/v, diarrhea, andchest pain now being transferred for LHC/PCI 06/06. #CHF #CAD s/p PCI 03/2017 (RCA) and 3 stent 12/07 (prox, mid, and distal RCA) OSH txf for LHC/PCI w Dr. Osborne 06/06 at 10:30am. [facility]. He did have angiogram in 2020 which showed patent stents in RCA and PDA, previouslyjailed posterolateral occluded and 50% stenosis in branch of OM1. Endorsing chest pain iso n/v/diarrhea/ROONEY. Elevated troponin I 1.0->1.09->0.729, BNP 08070. EKG with sinus rhythm with left anterior [...] pain, no changes in EKG->restarted heparin gtt -[facility] 06/06 at 10:30am (NPO [place]) -heparin [...] white count, elevated troponin I 1.0->1.09->0.729, BNP 70116, lipase 65. Covid, influenza negative. CXR showed [...] 24h UF 1074 ml Won Navarro MD pre owned sales consultant Division of Nephrology NEPHROLOGY PROCEDURE NOTE Date [...] 116.1 kg (255 lb 15.3 oz) Height: OPERATION SUPERVISOR vascular access: PD catheter Other findings: Date 06/25/22699 - 06/26/22 0659 06/26/22699 - 06/27/22 0659 Shift 7518-7108 9895-6149 24 Hour Total 4943-2879 5599-6827 24 Hour Total INTAKE P.O. 360 360 Other 19398 27614 Shift Total(mL/kg) 360(3) 77993(105.7) 30175(108.8) OUTPUT Urine(mL/kg/hr) 100(0.1) 100(0) 300 300 Other 13159 37721 Shift Total(mL/kg) 100(0.8) 17994(119) 14215(119.9) 300(2.6) 300(2.6) NET 260 -1547 -1287 -300 [...] FERRITIN 2,062 (H) 06/07/2022 Won Navarro MD pre owned sales consultant Nephrology Division TION SALES ADVISOR * Aleida Lambert, INSTRUCTIONAL TECHNOLOGY SPECIALIST - 06/21/2022 2:02 PM CDTAssociated Order(s): INSTRUCTIONAL TECHNOLOGY SPECIALIST EVALUATE AND TREAT VIDEOFLUOROSCOPIC SWALLOW STUDY Speech-Language [...] reported General Information Adelia Garvin Jr. 06/21/22 INSTRUCTIONAL TECHNOLOGY SPECIALIST Received On: 06/21/22 General Observations: presents alert, [...] Administered: Thin liquids (via spoon & straw), [place] thickened liquids (via spoon & straw), Purees, Honey thickened liquids via spoon, Solids. Patient took large sips requiring more than 1 swallow even when cued for small sip. Administered consistencies contain barium product. Thin Liquids: Laryngeal Penetration: Present Aspiration Present: No Penetration Aspiration Scale-Thin: 4-Material enters the airway, contacts the vocal folds and is ejected from the airway [place] Thickened Liquids: Laryngeal Penetration: Present Aspiration Present: No Penetration Aspiration Scale-[place]: 2-Material enters the airway, remains above the [...] dysphagia Levels 1 & 2 on the AMRK indicate need for nonoral nutrition. Treatment Treatment was not provided this date. Please reference care plan for treatment goals and details, if indicated. Plan INSTRUCTIONAL TECHNOLOGY SPECIALIST Frequency of Services: 2-3x/wk INSTRUCTIONAL TECHNOLOGY SPECIALIST Recommendation (Add'l Services): Inpatient Rehab Facility Next [...] National Outcomes Measurement System: (pending MBS) Plan INSTRUCTIONAL TECHNOLOGY SPECIALIST Frequency of Services: Pending instrumental assessment Further [...] Poe MD Authorized by: Aj Poe MD [place] Protocol: RN Notified of Procedure: yes Informed consent: Patient/bilingual call center representative/guardian agrees and accepts and risks, benefits, [...] Brody, the patient's brother. Aj Poe MD Material Loader, PGY-5 Cosigned by Rufino Flores MD at 06/20/2022 9:33 AM CDT * Lavern Morrison MD - 06/07/2022 10:17 PM CDTAssociated Order(s): Arterial Line Insertion Post-Procedure Diagnose(s): Hypotension, unspecified hypotension type Arterial Line Insertion Date/Time: 06/07/2022 10:17 PM Performed by: Lavern Morrison MD Authorized by: Lavern Morrison MD [place] Protocol: RN Notified of Procedure: yes Informed [...] and matched to patient identification: n/a Responsible constitution party for transporting specimen(s) to lab determined: [...] n/v and chest pain, transferred to [facility] for LHC/PCI, who presented to CCU s/p complex PCI with impella and intubated. Now extubated, tolerating PO intake, on home PD. Arrived at [place] from OSH on 06/05. EKG showed sinus [...] Diabetes mellitus type I (HCC), Dialysis patient ([facility]) (HCC), ESRD on dialysis ([facility]) (HCC), GERD (gastroesophageal reflux disease), Hyperlipidemia, Hypertension, [...] 06/23/2022 1747 Gross per 24 hour Intake 70868 ml Output 45371 ml Net -2325 ml Physical Exam: General: [...] on PD who was transferred to [facility] for an impella-supported complex PCI on 06/07/22 [...] 5PM or on weekends, please page the rig manager terminal operations manager with any questions or concerns. Will Villavicencio MD Material Loader 5:59 PM 06/23/22 Cosigned by Musa Fernando MD at 06/23/2022 7:53 PM CDT Associated attestation - Musa Fernando MD - 06/23/2022 7:53 PM CDT 06/23/2022 I have personally seen and examined this pt with resident/Fellow/APPLIANCE COUNSELOR . I have reviewed History/Physical exam and plan for management. I agree with it . Musa Fernando M.D., F.A.CSharathC. environmental compliance inspector [facility] [employer] [facility]. [place] This note contains information and [...] about verbage above please contact me at [phone]. . * Mckenzie Phelan, RD - 06/15/2022 [...] gout, BEN on CPAP initially presented to [facility] for generalized weakness, n/v, diarrhea, and chest pain now being transferred for LHC/PCI 06/06. Objective Past Medical History: Diagnosis Date CAD (coronary artery disease) Chest pain Diabetes mellitus (HCC) Diabetes mellitus type I (HCC) Dialysis patient ([facility]) (HCC) ESRD on dialysis ([facility]) (HCC) GERD (gastroesophageal reflux disease) Hyperlipidemia Hypertension [...] of Weight Used for Estimated Protein : [place] Protein Needs Based on g/k.7 Total Protein [...] Evaluation: TF tolerance Mckenzie Phelan RDN LD [phone] * Sandrine Myers MD - 06/15/2022 10:42 [...] Pulmonary will continue to follow. Please call terminal operations manager pulmonary consult fellow with additional questions or [...] gout, BEN on CPAP initially presented to [facility] for generalized weakness, n/v, diarrhea, and chest pain now being transferred for LHC/PCI 06/06. Objective Past Medical History: Diagnosis Date CAD (coronary artery disease) Chest pain Diabetes mellitus (HCC) Diabetes mellitus type I (HCC) Dialysis patient (CMS/HCC) (HCC) ESRD on dialysis ([facility]) (HCC) GERD (gastroesophageal reflux disease) Hyperlipidemia Hypertension [...] of Weight Used for Estimated Protein : [place] Protein Needs Based on g/k.5 Total Protein [...] Monitoring and Evaluation: TF tolerance ADAMA Te[place] Assistant Corporation Counsel RD number [phone] * Ronny Vasquez - 06/10/2022 2:21 PM [...] gout, BEN on CPAP initially presented to [facility] for generalized weakness, n/v, diarrhea, and chest pain now being transferred for LHC/PCI 06/06. Objective Past Medical History: Diagnosis Date CAD (coronary artery disease) Chest pain Diabetes mellitus (HCC) Diabetes mellitus type I (HCC) Dialysis patient ([facility]) (HCC) ESRD on dialysis ([facility]) ([facility]) GERD (gastroesophageal reflux disease) Hyperlipidemia Hypertension Sleep [...] TF tolerance Ronny Vasquez MS RDN LD Assistant Corporation Counsel RD number [phone] * Patricio Pearce MD - 06/09/2022 1:10 [...] Briefly, the patient was transferred to [facility] for complex PCI for NSTEMI on 06/04. He was initially on the medicine floor then went into flash pulmonary edema in setting of hypertension and NSTEMI and was transferred to the MICU for NPPV. CXR showed significant pulmonary edema. Labs notable for BNP 47303, trops 4000. He was also found to [...] dilated RV with normal RV systolic function. [place] numbers from earlier today indicat PA 36/17, [...] Diabetes mellitus type I (HCC) Dialysis patient ([facility]) (HCC) ESRD on dialysis ([facility]) ([facility]) GERD (gastroesophageal reflux disease) Hyperlipidemia Hypertension Sleep [...] Value Ref Range ABO Rh A Positive Marbiel, indirect Negative Lactate, whole blood Collection Time: [...] CDTAssociated Order(s): IP CONSULT TO GENERAL SURGERY [facility] Consult Note Requesting Consult: Conrad Akers MD Reason for Consult: cholecystitis Assessment: 51M w/PMHB CHF (EF 50% 2016), Afib (not on AC), HTN, CAD s/p stent 04/06 and 3 stent 12/07, T1DM (insulin pump at home), ESRD on PD, HLD, GERD, hyperparathyroidism, DDD, OA, gout, BEN on CPAP [facility] generalized weakness, n/v, diarrhea, and chest pain, transferredto [facility] on 06/05 for LHC/PCI scheduled for 06/06. Pt was found to have an NSTEMI at OSH and was continued on hep gtt, asa81, plavix at [facility]. He was transferred to MICU after he [...] discussed with attending Dr. Gamez. Please contact [facility] Inpatient Consults at with any questions or [...] OA, gout, BEN on CPAP [facility] generalized weakness, n/v, diarrhea, and chest pain, transferredto [facility] on 06/05 for LHC/PCI scheduled for 06/06. Pt was found to have an NSTEMI at OSH and was continued on hep gtt, asa81, plavix at [facility]. He was transferred to MICU after he [...] (coronary artery disease) Chest pain Diabetes mellitus ([facility]) Diabetes mellitus type I ([facility]/HCC) Dialysis patient ([facility]) ESRD on dialysis ([facility]) GERD (gastroesophageal reflux disease) Hyperlipidemia Hypertension Sleep [...] evaluation. The pelvis is excluded from the woyni-tz-eido and unavailable for interpretation. A rounded density [...] only and have not been reviewed by [facility]. There will be no report generated by a [facility] Radiologist. XR Outside Reference Result Date: 06/05/2022 These images are for Reference purposes only and have not been reviewed by [facility]. There will be no report generated by a [facility] Radiologist. US RUQ Result Date: 06/06/2022 [...] only and have not been reviewed by [facility]. There will be no report generated by a [facility] Radiologist. IR Outside Reference Result Date: 06/05/2022 These images are for Reference purposes only and have not been reviewed by [facility]. There will be no report generated by a [facility] Radiologist. Assessment/Plan: Please see top of note. Cosigned by Modesta Gamez MD at 06/07/2022 9:34 PM CDT Associated attestation - Modesta Gamez MD - 06/07/2022 9:34 PM CDT I have seen and examined the patient on 06/06/2022. I agree with the findings and plan of care as documented in the resident's/fellow's note. Nona Gamez MD Instructor, Acute and Critical Care Surgery [facility] [employer] ' * Hortencia Slade MD - 06/05/2022 2:37 PM CDTAssociated Order(s): CONSULT TO ENDOCRINOLOGY DIABETES Endocrinology & Diabetes Consult Note Patient: Adelia Garvin Jr., 51 y.o. male (: 1970) Room: [id number] ( ) LOS: 1 Consult Question: T1DM on insulin pump (Requesting Provider: Champ Osborne MD PhD) Adelia Garvin Jr. is a 51 y.o. male with PMHx CHF (EF 50% in 2017), atrial fibrillation not on OAC, HTN/HLD, CAD s/p PCI, ESRD on PD, hyperparathyroidism presenting with weakness, N/V, diarrhea and chest pain. He is scheduled for [facility] on 06/06. Diabetes service consulted for [...] (coronary artery disease), Chest pain, Diabetes mellitus ([facility]), Diabetes mellitus type I ([facility] Dialysis patient ([facility]), ESRD on dialysis ([facility]), GERD (gastroesophageal reflux disease), Hyperlipidemia, Hypertension, Sleep [...] is 44.91 kg/m??. I/O this shift: In: 19331 [P.O.:60; Other:21695] Out: 30512 [Other:96057] Physical Exam Gen : no acute distress, [...] Plan 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, with chcf use of insulin, complicated by ESRD on [...] ## Discharge Planning - Follow-up with home reel worker Discussed with Dr. Huynh and primary team [...] Date: 2019 Dialysis Days: nightly Dialysis Center: [place], [place] Dialysis Medicine: Dialysis Prescription: CCPD - 4 exchanges of 2.8 L each, total time 9 hours, total volume : 11.2 L.All 2.5 % bags and then a manual day time exchange with 1 L purple bag. Past Medical History: Diagnosis Date CAD (coronary artery disease) Chest pain Diabetes mellitus (CMS/HCC) Diabetes mellitus type I (CMS/HCC) Dialysis patient (CMS/HCC) ESRD on dialysis ([facility]) GERD (gastroesophageal reflux disease) Hyperlipidemia Hypertension Sleep [...] No rash or lesions on visible skin BASS GUITAR TEACHER: Alert Ox3. No focal motor deficits, no [...] cell count and diff. Vonnie Cody MD pre owned sales consultant documented in this encounter Nursing Notes * Tequila Ingram RN - 06/28/2022 8:08 PM CST 9 hour CCPD treatment started as ordered. PD catheter site is clear and free of drainage. PD site was cleansed and gentamicin cream applied at entrance. Covered with gauze dressing. Treatment setup aseptically per protocol. TION SALES ADVISOR * Pj Duckworth RN - 06/28/2022 6:15 AM CST 06/28/22 0600 Vitals BP 124/62 Temp 36.7 ??C (98.1 ??F) Temp src Oral Pulse 70 Resp 16 SpO2 98 % Weight 120.3 kg (265 lb 3.4 oz) Peritoneal Dialysis Dialysis Type CCPD Peritoneal Dialysis Setup Completed by youth managermanager contract Status End Cycle Number 4 Machine Type AvtozaperChoice Pro Machine # [id number] Initial Drain Volume (mL) 312 mL Last Fill Volume (mL) 999 mL Fill Volume In (mL) 44473 mL Effluent Volume Out (mL) 57090 ml Effluent Appearance Clear;Yellow Balance This Exchange (mL) 1788 mL Peritoneal Dialysis Catheter Continuous cycling No placement date or time found. Placed by External Staff?: Other (Comment) Dialysis Type: Continuous cycling Status Deaccessed;Clamped Dressing Gauze Dressing Status Clean, dry, intact TION SALES ADVISOR * Pj Duckworth RN - 06/27/2022 8:21 PM CST Started CCPD. Target treatment time is 9 hours. TION SALES ADVISOR * Pj Duckworth RN - 06/27/2022 6:24 AM CST 06/27/22 0600 Peritoneal Dialysis Dialysis Type CCPD Peritoneal Dialysis Setup Completed by youth managermanager contract Status End Cycle Number 4 Machine Type NsGene HomeChoice Pro Machine # [id number] Initial Drain Volume (mL) 690 mL Last Fill Volume (mL) 785 mL Fill Volume In (mL) 58156 mL Effluent Volume Out (mL) 15477 ml Effluent Appearance Clear;Yellow Balance This Exchange (mL) 1944 mL Peritoneal Dialysis Catheter Continuous cycling No placement date or time found. Placed by External Staff?: Other (Comment) Dialysis Type: Continuous cycling Status Deaccessed;Clamped Dressing Gauze Dressing Status Clean, dry, intact TION SALES ADVISOR * Pj Duckworth RN - 06/26/2022 7:52 PM CST Started CCPD. Target treatment time is 9 hours. TION SALES ADVISOR * Pj Duckworth RN - 06/25/2022 8:41 PM CDT Started CCPD. Target treatment time is 9 hours. * Pj Duckworth RN - 06/25/2022 6:09 AM CDT 06/25/22 0600 Peritoneal Dialysis Dialysis Type CCPD Peritoneal Dialysis Setup Completed by youth managermanager contract Status End Cycle Number 4 Machine Type Dalton HomeChoice Pro Machine # [id number] Initial Drain Volume (mL) 423 mL Last Fill Volume (mL) 999 mL Fill Volume In (mL) 01697 mL Effluent Volume Out (mL) 28239 ml Effluent Appearance Clear;Yellow Balance This Exchange [...] at 150 ml/hr. 4K/2.5Ca dialysate fluid used. APPLICATIONS ENGINEER has no questions or concerns at this time, contact number left at bedside. * Mell Daniel RN - 06/19/2022 10:01 AM CDT CVVHDF reset. Prismaflex #12 used. Warmer set at 40.5 using toney tubing through RIJ catheter. All pressures within normal limits. UF rate at 200 ml/hr. 4K/2.5Ca dialysate fluid used. APPLICATIONS ENGINEER has no questions or concerns at this [...] Type CCPD Peritoneal Dialysis Setup Completed by youth managermanager contract Status End Initial Drain Volume (mL) 429 [...] Change Due 06/19/22 Site Assessment Clean and dry;[place] * Jaja Mojica RN - 06/17/2022 12:43 PM CDT CCPD initiated per protocol and per order. Aury, APPLICATIONS ENGINEER notified and contact phone number left atthe bedside. * Jaja Mojica RN - 06/17/2022 12:21 PM CDT Pt's CCPD tx ended per protocol. Last fill of 0mL, total UF of 1213 clear, yellow, non odorous effluent. Aury, APPLICATIONS ENGINEER notified. Setting up next CCPD ordered to [...] without redness or drainage. Skin cleaned with [place] Secura skin cleanser, dried, then a thin [...] Blood flow and pressures WNL. Spoke to APPLICATIONS ENGINEERLUAN Ramos, she has no questions or concerns [...] on venous line. Blood flow and pressures WNL.pastry baker has no questions or concerns at present [...] 06/07/2022 7:32 PM CDT Pt arrived to [id number] at 1637 and all initial hookups made. [...] degrees with alexander cord on return line. APPLICATIONS ENGINEER has no questions or concerns at this [...] orders [place]. [place] [address] ml over 4Cycles of 2800 ml each [...] gout, BEN on CPAP initially presented to [facility] for generalized weakness, n/v, diarrhea, and chest [...] another 6u IV regular insulin given 06/08: [facility] - -C/f DKA given BG in [...] started to prevent him from going to tiroshl86/20: CCM - #DKA - resolved In CCU, [...] part of the patient???s medical record. Sincerely, [facility] Information Management TION SALES ADVISOR * Consults, Subsequent - Dora Delarosa NP - 06/29/2022 12:55 PM VACATION SALES ADVISOR Endocrinology & Diabetes Progress Note Patient: Adelia Garvin Jr., 51 y.o. male (: 1970) Room: [place] [id number] ( ) LOS: 25 Adelia Garvin Jr. [...] agitation. 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, with chcf use of insulin, complicated by ESRD on PD, CAD s/p PCI, CHF - HbA1c 7.4% - Uses Omnipod and Dexcom G6 at home, not currently on this- doesn't have the supplies -On significantly higher basal rates on pump at night due to peritoneal dialysis -home settings: Basal rate 0330 >>1.7 0800 >> 0.8 2000 >> 5.8 ICR1:6.5 ISF1:25 RFE525 TIA 4 Over the previous 24 hours, [...] recommend increasing the basal insulin dose from 1641-2251 today. We will continue to intensely monitor [...] yearly or sooner as indicated by your retirement benefits specialist # ESRD on PD - CKD and ESRD are independent risk factors for hypoglycemia ## Discharge Planning - Follow-up with home reel worker -- Dora Delarosa NP Endocrinology, Metabolism, & Lipid Research Contact Info: New Consults: [phone]) General Endocrine (Non-Diabetes): [phone] (Check 'Treatment Team' assignment for Diabetes 1 vs 2 vs 3) Diabetes 1: Diabetes Fellow: [phone] Diabetes 2: Dora Delarosa NP: [phone] Diabetes 3: See Treatment Team Provider (or call Dora Delarosa, above) Diabetes After-Hours & Weekends: Diabetes Fellow TION SALES ADVISOR * Plan of Care - Elsie Gonzalez RN - 06/29/2022 11:32 AM CST [facility] [id number] Post Acute Care Transfer Report Adelia Garvin Jr. 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 (CMS/[facility]) (HCC) 05/23/2017 - Present 06/22/2022 by Luiz [...] Valerie Added automatically from request for surgery [id number] DELETED: Angina pectoris (HCC) 06/04/2022 - Present [...] Hypotension 06/03/2022 - Present 06/22/2022 by Luiz Lewsi, DO Entered by Aj Poe MD Overview Signed 06/10/2022 7:33 AM by Aj Poe MD Added automatically from request for surgery [id number] Anemia 06/22/2022 - Present 06/29/2022 by Frank Bowers MD Entered by Luiz Lewis DO All Assessment & Plan Notes ESRD (end stage renal disease) ([facility]) ([facility]) 06/22/2022 - Present 06/29/2022 by Frank Bowers MD Entered by Luiz Lewis DO All Assessment & Plan Notes Acute on chronic HFrEF (heart failure with reduced ejection fraction) ([facility]) 06/22/2022 - Present 06/29/2022 by Frank Bowers MD Entered by Luiz Lewis DO All Assessment & Plan Notes Atrial fibrillation ([facility]) ([facility]) 06/22/2022 - Present 06/29/2022 by Frank Bowers MD Entered by Luiz Lewis DO All Assessment & Plan Notes Principal NSTEMI (non-ST elevated myocardial infarction) ([facility]) ([facility]) 06/22/2022 - Present 06/29/2022 by Frank Bowers MD Entered by Luiz Lewis DO All Assessment & Plan Notes Cardiogenic shock ([facility]) 06/22/2022 - Present 06/29/2022 by Frank Bowers [...] ...filed at 06/04/2022 2300 Patient Language and Temple Flowsheet Row Most Recent Value Patient's Preferred [...] 06/29/22 0700 - 06/30/22 0659 Total Total 0039-9329 3644-7325 3536-9636 Total 9755-2705 6615-5859 5886-1244 Total Intake (ml) 37617 38707 400 360 90373 41859 360 -- -- 360 Output (ml) 81922 97491 150 -- 01799 41925 -- -- -- -- Net (ml) -1709 [...] as: PriLOSEC acetaminophen (TYLENOL) tablet 1,000 mg [[id number]] Ordering Provider: Luiz Lewis DO Status: Dispensed Ordered On: 06/22/221923 Start: 06/22/221929 Ordered Dose (Remaining/Total): 1,000 mg (--/--) Route: oral Frequency: Every 6 hours PRN Ordered Rate/Order Duration: -- / -- Timestamps Action Dose Route Other Information Performed 06/27/221746 Documented: 06/27/221746 Given 1,000 mg oral Performed by: Manda Lake RN Scanned Package: 15913-485-33, 02865-480-74 acetaminophen (TYLENOL) tablet 325 mg [[id number]] Ordering Provider: Meme Castro MD Status: Completed (Past End Date/Time) Ordered On: 06/15/22 1014 Starts/Ends: 06/15/22 1045 - 06/15/22 0945 Ordered Dose (Remaining/Total): 325 mg (0/1) Route: oral Frequency: Once Ordered Rate/Order Duration: -- / -- Timestamps Action Dose Route Other Information Performed 06/15/22 0945 Documented: 06/15/22 1104 Given 325 mg oral Performed by: Ravi Hollingsworth RN Scanned Package: [address]-2 albuterol HFA (PROVENTIL HFA,VENTOLIN HFA,PROAIR HFA) 90 mcg/actuation inhaler 2 puff [[id number]] Ordering Provider: Fernando Torres MD Status: Dispensed Ordered On: 06/05/22244 Start: 06/05/22228 Ordered Dose (Remaining/Total): 2 puff (--/--) Route: inhalation 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 Refrigerate Timestamps Action Dose Route Other Information Performed 06/09/22447 Documented: 06/09/22447 Given 1 mg intra-catheter Performed by: Rachel Masters RN Scanned Package: 4458-9182-13 alteplase (CATHFLO) 1 mg/mL syringe (premix) 1 mg [[id number]] Ordering Provider: Robert Henry MD Status: Completed [...] Performed by: Manda Pickett RN Scanned Package: 1636-5589-00 alteplase (CATHFLO) 1 mg/mL syringe (premix) 2 mg [[id number]] Ordering Provider: Robert Henry MD Status: Completed (Past End Date/Time) Ordered On: 06/11/221655 Starts/Ends: 06/11/221729 - 06/11/221809 Ordered Dose (Remaining/Total): 2 mg (0/1) Route: intra-catheter Frequency: Once Ordered Rate/Order Duration: -- / -- Admin Instructions: 60 to 120 minute dwell time. Refrigerate Timestamps Action Dose Route Other Information Performed 06/11/221809 Documented: 06/11/221809 Given 2 mg intra-catheter Performed by: Manda Pickett RN Scanned Package: 1208-9009-78, 4991-9945-89 alteplase (CATHFLO) 1 mg/mL syringe (premix) 2 mg [[id number]] Ordering Provider: Robert Henry MD Status: Completed (Past End Date/Time) Ordered On: 06/11/221655 Starts/Ends: 06/11/221729 - 06/11/221810 Ordered Dose (Remaining/Total): 2 mg (0/1) Route: intra-catheter Frequency: Once Ordered Rate/Order Duration: -- / -- Admin Instructions: 60 to 120 minute dwell time. Refrigerate Timestamps Action Dose Route Other Information Performed 06/11/221810 Documented: 06/11/221810 Given 2 mg intra-catheter Performed by: Manda Pickett RN Scanned Package: 2040-9979-11, 7910-3734-87 amiodarone (NEXTERONE) 150 mg/100 mL (1.5 mg/mL) in dextrose (premix) 150 mg [[id number]] Ordering Provider: Jeffrey Green MD Status: Completed [...] (1.5 mg/mL) in dextrose (premix) 150 mg [[id number]] Ordering Provider: Lavern Morrison MD Status: Completed [...] Performed by: Carlos Esparza RN Scanned Package: 38743-687-73 amiodarone (NEXTERONE) 150 mg/100 mL (1.5 mg/mL) in dextrose (premix) 150 mg [[id number]] Ordering Provider: Lavern Morrison MD Status: Completed [...] Performed by: Carlos Esparza RN Scanned Package: 51920-139-72 amiodarone (NEXTERONE) 150 mg/100 mL (1.5 mg/mL) in dextrose (premix) 150 mg [[id number]] Ordering Provider: Trya De La Torre MD Status: Completed (Past [...] Escobar RN aspirin chewable tablet 81 mg [[id number]] Ordering Provider: Marcelina Pickard NP Status: Completed (Past End Date/Time) Ordered On: 06/07/22 1112 Starts/Ends: 06/07/22 1145 - 06/07/22 1137 Ordered Dose (Remaining/Total): 81 mg (0/1) Route: oral Frequency: Once Ordered Rate/Order Duration: -- / -- Timestamps Action Dose Route Other Information Performed 06/07/22 1137 Documented: 06/07/22 1138 Given 81 mg oral Performed by: Carolyn Troncoso RN Scanned Package: 0863-8193-64 aspirin chewable tablet 81 mg [[id number]] Ordering Provider: Luiz Lewis DO Status: Dispensed Ordered On: 06/22/22 1924 Start: 06/23/22 0900 Ordered Dose (Remaining/Total): 81 mg (--/--) Route: oral Frequency: Daily Ordered Rate/Order Duration: -- / -- Timestamps Action Dose Route Other Information Performed 06/29/22 0823 Documented: 06/29/22 0824 Given 81 mg oral Performed by: Manda Lake RN Scanned Package: 2970-0847-82 atorvastatin (LIPITOR) tablet 80 mg [[id number]] Ordering Provider: Luiz Lewis DO Status: Dispensed Ordered On: 06/22/221923 Start: 06/23/22899 Ordered Dose (Remaining/Total): 80 mg (--/--) Route: oral Frequency: Daily Ordered Rate/Order Duration: -- / -- Timestamps Action Dose Route Other Information Performed 06/29/22822 Documented: 06/29/22823 Given 80 mg oral Performed by: Manda Lake RN Scanned Package: [address]-1 azithromycin (ZITHROMAX) tablet 500 mg [[id number]] Ordering Provider: Russ Milner MD Status: Completed (Past End Date/Time) Ordered On: 06/05/225 Starts/Ends: 06/05/22899 - 06/05/22 0849 Ordered Dose (Remaining/Total): 500 mg (0/1) Route: oral Frequency: Once Ordered Rate/Order Duration: -- / -- Timestamps Action Dose Route Other Information Performed 06/05/22848 Documented: 06/05/22 0850 Given 500 mg oral Performed by: Nona Fernandez RN Scanned Package: [address]-3, [address]-9 barium sulfate (VARIBAR NECTAR) 40 % (w/v) nectar [[id number]] Ordering Provider: Tyra De La Torre MD [...] PUDDING) 40 % (w/v), 30% (w/w) pudding [[id number]] Ordering Provider: Tyra De La Torre MD [...] THIN LIQUID) 81 % (w/w) thin liquid [[id number]] Ordering Provider: Tyra De La Torre MD [...] % (w/v) 29% (w/w) suspension 250 mL [[id number]] Ordering Provider: Tyra De La Torre MD [...] ml given calcitRIOL (ROCALTROL) capsule 0.25 mcg [[id number]] Ordering Provider: Tyra De La Torre MD Status: Dispensed Ordered On: 06/22/22921 Start: 06/22/22 1000 Ordered Dose (Remaining/Total): 0.25 mcg (--/--) Route: oral Frequency: Daily Ordered Rate/Order Duration: -- / -- Timestamps Action Dose Route Other Information Performed 06/29/22822 Documented: 06/29/22823 Given 0.25 mcg oral Performed by: Manda Lake RN Scanned Package: 35493-097-03 calcium acetate(phosphat bind) (PHOSLO) capsule 667 mg [[id number]] Ordering Provider: Fernando Torres MD Status: Dispensed Ordered On: 06/05/22244 Start: 06/05/22799 Ordered Dose (Remaining/Total): 667 mg (--/--) Route: oral Frequency: 4 times daily Ordered Rate/Order Duration: -- / -- Admin Instructions: Take with food Timestamps Action Dose Route Other Information Performed 06/29/22822 Documented: 06/29/22823 Given 667 mg oral Performed by: Manda Lake RN Scanned Package: 18895-536-82 calcium carbonate (TUMS) chewable tablet 500 mg [[id number]] Ordering Provider: Earl Samuels MD Status: Completed (Past End Date/Time) Ordered On: 06/24/222111 Starts/Ends: 06/24/222144 - 06/24/222137 Ordered Dose (Remaining/Total): 200 mg of elemental calcium (0/1) Route: oral Frequency: Once Ordered Rate/Order Duration: -- / -- Timestamps Action Dose Route Other Information Performed 06/24/222137 Documented: 06/24/222137 Given 500 mg oral Performed by: Sasha Subramanian RN Scanned Package: 6675-1636-51 clopidogreL (PLAVIX) tablet 600 mg [[id number]] Ordering Provider: Finn Dupont MD Status: Completed (Past End Date/Time) Ordered On: 06/07/22806 Starts/Ends: 06/07/22844 - 06/07/22956 Ordered Dose (Remaining/Total): 600 mg (0/1) Route: oral Frequency: Once Ordered Rate/Order Duration: -- / -- Timestamps Action Dose Route Other Information Performed 06/07/22956 Documented: 06/07/22957 Given 600 mg oral Performed by: Caitlyn Guzman RN Scanned Package: 26929-166-60, 54357-187-74 clopidogreL (PLAVIX) tablet 75 mg [[id number]] Ordering Provider: Luiz Lewis DO Status: Dispensed Ordered On: 06/22/221923 Start: 06/23/22 0900 Ordered Dose (Remaining/Total): 75 mg (--/--) Route: oral Frequency: Daily Ordered Rate/Order Duration: -- / -- Timestamps Action Dose Route Other Information Performed 06/29/22822 Documented: 06/29/22823 Given 75 mg oral Performed by: Manda Lake RN Scanned Package: 3030-5517-06 Dianeal low calcium-dextrose 1.5 % 2,000 mL dialysis solution [[id number]] Ordering Provider: James Horvath MD Status: Dispensed [...] calcium-dextrose 2.5 % 2,000 mL dialysis solution [[id number]] Ordering Provider: Tom Mendez MD Status: Dispensed [...] calcium-dextrose 2.5 % 5,000 mL dialysis solution [[id number]] Ordering Provider: Yovanny Curtis MD Status: Dispensed [...] calcium-dextrose 2.5 % 5,000 mL dialysis solution [[id number]] Ordering Provider: Yovanny Curtis MD Status: Dispensed [...] calcium-dextrose 2.5 % 5,000 mL dialysis solution [[id number]] Ordering Provider: Tom Mendez MD Status: Dispensed [...] calcium-dextrose 2.5 % 5,000 mL dialysis solution [[id number]] Ordering Provider: Tom Mendez MD Status: Dispensed [...] -- intraperitoneal Performed by: Pj Duckworth RN diphenhydrAMINE (BENADRYL) capsule 50 mg [[id number]] Ordering Provider: Veronica Tavares MD Status: Completed [...] oral Performed by: Caitlyn Guzman RN 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 Scanned Package: 9596-7378-20 Extraneal 7.5% ULTRABAG 2,000 mL dialysis solution [[id number]] Ordering Provider: Tom Mendez MD Status: Dispensed (Past End Date/Time) Ordered On: 06/26/221308 Starts/Ends: 06/26/221344 - 06/27/221936 Ordered Dose (Remaining/Total): -- (--/--) Route: intraperitoneal Frequency: Continuous Ordered Rate/Order Duration: -- / -- Timestamps Action Dose / Rate / Duration Route Other Information Performed 06/26/221937 Documented: 06/26/221937 New Bag -- intraperitoneal Performed by: Pj Duckworth, LUAN ezetimibe (ZETIA) tablet 10 mg [[id number]] Ordering Provider: Luiz Lewis DO Status: Dispensed Ordered On: 06/22/22 1924 Start: 06/23/22 0900 Ordered Dose (Remaining/Total): 10 mg (--/--) Route: oral Frequency: Daily Ordered Rate/Order Duration: -- / -- Timestamps Action Dose Route Other Information Performed 06/29/22822 Documented: 06/29/22823 Given 10 mg oral Performed by: Manda Lake RN Scanned Package: 43270-348-89 furosemide (LASIX) 10 mg/mL injection 120 mg [[id number]] Ordering Provider: Dimitrios Hensley MD Status: Completed [...] Performed by: Nona Fernandez RN Scanned Package: 1316-4993-62, 8483-5130-27 gentamicin (GARAMYCIN) 0.1 % cream [[id number]] Ordering Provider: James Horvath MD Status: Dispensed [...] Performed by: Tequila Ingram RN Scanned Package: 49615-366-68 heparin 1,000 unit/mL injection 1.5-6.9 mL [[id number]] Ordering Provider: James Horvath MD Status: Completed (Past End Date/Time) Ordered On: 06/20/22 1224 Starts/Ends: 06/20/22 1300 - 06/20/221232 Ordered Dose (Remaining/Total): 1.5-6.9 mL (0/1) Route: intra-catheter Frequency: Once Ordered Rate/Order Duration: -- / -- Admin Instructions: [place] volume of catheter lumens post treatment. Give volume based upon sample clerk's recommendation (usual range 1.2 - 3 mL) in each lumen. Timestamps Action Dose Route Other Information Performed 06/20/221232 Documented: 06/20/221232 Given 3 mL intra-catheter Performed by: Margaret Escobar RN Scanned Package: 2739-8853-11 heparin 1,000 unit/mL injection 4,000 Units [[id number]] Ordering Provider: Russ Milner MD Status: Completed [...] Signoff by: Ayleen Doan RN Scanned Package: 8246-3473-73 heparin 5,000 unit/mL injection 5,000 Units [[id number]] Ordering Provider: Robert Henry MD Status: Dispensed Ordered On: 06/22/22 1107 Start: 06/22/22 1400 Ordered Dose (Remaining/Total): 5,000 Units (--/--) Route: subcutaneous Frequency: Every 8 hours scheduled Ordered Rate/Order Duration: -- / -- Timestamps Action Dose Route / Site Other Information Performed 06/29/22500 Documented: 06/29/22 0501 Given 5,000 Units subcutaneous Left Lower Abdomen Performed by: Radha Paul RN Scanned Package: 77603-144-40 heparin in 0.9% sodium chloride 25,000 unit/250 mL infusion (premix) [[id number]] Ordering Provider: Champ Osborne MD PhD Status: [...] age 6 months and up) 0.5 mL [[id number]] Ordering Provider: Champ Osborne MD PhD Status: Completed (Past End Date/Time) Ordered On: 06/04/222316 Starts/Ends: 06/04/222316 - 06/04/222335 Ordered Dose (Remaining/Total): 0.5 mL (0/1) Route: intramuscular Frequency: During hospitalization Ordered Rate/Order Duration: -- / -- Timestamps Action Dose Route / Site Other Information Performed 06/04/222335 Documented: 06/04/222337 Given 0.5 mL intramuscular Right Deltoid Performed by: Kristie Banegas RN Scanned Package: 81243-321-66 insulin lispro (HumaLOG, ADMELOG) 100 unit/mL injection 5 Units [[id number]] Ordering Provider: Lavern Morrison MD Status: Completed (Past End Date/Time) Ordered On: 06/22/22604 Starts/Ends: 06/22/22604 - 06/22/22621 Ordered Dose (Remaining/Total): 5 Units (0/1) Route: subcutaneous Frequency: Once Ordered Rate/Order Duration: -- / -- Timestamps Action Dose Route / Site Other Information Performed 06/22/22621 Documented: 06/22/22621 Given 5 Units subcutaneous Left Lower Abdomen Performed by: Annmarie Ayala RN Scanned Package: 6753-9352-02 insulin lispro (HumaLOG, ADMELOG) 100 unit/mL injection 5 Units [[id number]] Ordering Provider: Indiana Irwin III, MD Status: Completed (Past End Date/Time) Ordered On: 06/24/22 014 Starts/Ends: 06/24/22 0215 - 06/24/22156 Ordered Dose (Remaining/Total): 5 Units (0/1) Route: subcutaneous Frequency: Once Ordered Rate/Order Duration: -- / -- Timestamps Action Dose Route / Site Other Information Performed 06/24/22156 Documented: 06/24/22157 Given 5 Units subcutaneous Right Upper Arm Performed by: Mell Wild RN Scanned Package: 3193-8821-29 insulin lispro (HumaLOG, ADMELOG) 100 unit/mL injection 2 Units [[id number]] Ordering Provider: Carey East MD Status: Completed [...] Performed by: Adelita Self RN Scanned Package: 9028-2333-76 insulin regular (HumuLIN R, NovoLIN R) 100 unit/mL injection 4 Units [[id number]] Ordering Provider: Payam Connor MD Status: Completed [...] Signoff by: Milagros Hinojosa RN Scanned Package: 8998-5165-76 insulin regular (HumuLIN R, NovoLIN R) 100 unit/mL injection 6 Units [[id number]] Ordering Provider: Toyin Alberto MD Status: Completed (Past End Date/Time) Ordered On: 06/05/221429 Starts/Ends: 06/05/221514 - 06/05/221433 Ordered Dose (Remaining/Total): 6 Units (0/1) Route: intravenous Frequency: Once Ordered Rate/Order Duration: -- / -- Timestamps Action Dose Route Other Information Performed 06/05/221433 Documented: 06/05/221433 Given 6 Units intravenous Performed by: Nona Fernandez RN Dual Signoff by: Jacob Luna RN Scanned Package: 4912-4267-55 insulin regular (HumuLIN R, NovoLIN R) 100 unit/mL injection 5 Units [[id number]] Ordering Provider: Jeffrey Green MD Status: Completed (Past End Date/Time) Ordered On: 06/07/221746 Starts/Ends: 06/07/221829 - 06/07/221756 Ordered Dose (Remaining/Total): 5 Units (0/1) Route: intravenous Frequency: Once Ordered Rate/Order Duration: -- / -- Timestamps Action Dose Route Other Information Performed 06/07/221756 Documented: 06/07/221801 Given 5 Units intravenous Performed by: Figueroa Jack RN Dual Signoff by: Ravi Hollingsworth RN Scanned Package: 6953-0411-59 insulin regular (HumuLIN R, NovoLIN R) 100 unit/mL injection 7 Units [[id number]] Ordering Provider: Meme Castro MD Status: Completed [...] Signoff by: Rachel Masters RN Scanned Package: 1430-9113-96 insulin regular (HumuLIN R, NovoLIN R) 100 unit/mL injection 4 Units [[id number]] Ordering Provider: Jeffrey Green MD Status: Completed [...] Signoff by: Rachel Masters RN Scanned Package: 8475-2955-03 INSULIN SUBCUTANEOUS PUMP (HUMALOG) 100 UNITS/ML INSULIN PUMP INFUSION (HumaLOG) patient supplied pump 0-25 Units [[id number]] Ordering Provider: Dora Delarosa NP Status: Verified [...] ER (IMDUR) extended release tablet 30 mg [[id number]] Ordering Provider: Carey East MD Status: Dispensed [...] Performed by: Manda Lake RN Scanned Package: 2038-4577-92 lidocaine PF (XYLOCAINE) 10 mg/mL (1 %) preservative free injection [[id number]] Ordering Provider: Aric Cordova MD Status: Completed (Past End Date/Time) Ordered On: 06/18/22 123 Frequency: Code/trauma/sedation medication Timestamps Action Dose Route Other Information Performed 06/18/22 1231 Documented: 06/18/22 123 Given 10 mL Injection Performed by: Aric Cordova MD Documented by: Nick Delarosa RN losartan (COZAAR) tablet 12.5 mg [[id number]] Ordering Provider: Carey East MD Status: Dispensed Ordered On: 06/24/22 1718 Start: 06/25/22 09 Ordered Dose (Remaining/Total): 12.5 mg (--/--) Route: oral Frequency: Daily Ordered Rate/Order Duration: -- / -- Timestamps Action Dose Route Other Information Performed 06/29/22821 Documented: 06/29/22823 Given 12.5 mg oral Performed by: Manda Lake RN Scanned Package: 17077-028-11 magnesium sulfate 2 g/50 mL in water (premix) 2 g [[id number]] Ordering Provider: Jeffrey Green MD Status: Completed (Past End Date/Time) Ordered On: 06/18/221837 Starts/Ends: 06/18/221914 - 06/18/222024 Ordered Dose (Remaining/Total): 2 g (0/1) Route: intravenous Frequency: Once Ordered Rate/Order Duration: -- / 60 Minutes Timestamps Action Dose / Duration Route Other Information Performed 06/18/221924 Documented: 06/18/221924 New Bag 2 g 60 Minutes intravenous Performed by: Carlos Esparza RN Scanned Package: 5943-8461-97 metoprolol tartrate (LOPRESSOR) immediate release tablet 25 mg [[id number]] Ordering Provider: Carey East MD Status: Dispensed Ordered On: 06/26/22 1551 Start: 06/27/22 0900 Ordered Dose (Remaining/Total): 25 mg (--/--) Route: oral Frequency: 2 times daily Ordered Rate/Order Duration: -- / -- Timestamps Action Dose Route Other Information Performed 06/29/22821 Documented: 06/29/22823 Given 25 mg oral Performed by: Manda Lake RN Scanned Package: 79050-275-93 midazolam (VERSED) 1 mg/mL injection 2 mg [[id number]] Ordering Provider: Lavern Morrison MD Status: Completed (Past End Date/Time) Ordered On: 06/15/221756 Starts/Ends: 06/15/221829 - 06/15/221804 Ordered Dose (Remaining/Total): 2 mg (0/1) Route: intravenous Frequency: Once Ordered Rate/Order Duration: -- / -- Timestamps Action Dose Route Other Information Performed 06/15/221804 Documented: 06/15/221805 Given 2 mg intravenous Performed by: Ravi Hollingsworth RN Scanned Package: 3699-6256-11 midazolam (VERSED) bolus from bag 2 mg [[id number]] Ordering Provider: Jeffrey Green MD Status: Completed (Past End Date/Time) Ordered On: 06/16/221719 Starts/Ends: 06/16/22 1800 - 06/16/221744 Ordered Dose (Remaining/Total): 2 mg (0/1) Route: intravenous Frequency: Once Ordered Rate/Order Duration: -- / -- Timestamps Action Dose Route Other Information Performed 06/16/221744 Documented: 06/16/221756 Bolus from Bag 2 mg intravenous Performed by: Ravi Hollingsworth RN pantoprazole DR (PROTONIX) extended release tablet 40 mg [[id number]] Ordering Provider: Carey East MD Status: Dispensed Ordered On: 06/25/221156 Start: 06/26/22 09 Ordered Dose (Remaining/Total): 40 mg (--/--) Route: oral Frequency: Daily Ordered Rate/Order Duration: -- / -- Admin Instructions: Do not crush, chew, cut, dissolve, open or otherwise manipulate tablet/capsule. Timestamps Action Dose Route Other Information Performed 06/29/22821 Documented: 06/29/22823 Given 40 mg oral Performed by: Manda Lake RN Scanned Package: 1752-0526-28 perflutren protein-a (OPTISON) 0.22 mg/mL injection - ADS Override Pull [[id number]] Status: Completed (Past End Date/Time) Ordered On: [...] in sodium chloride 0.9% 8 mL syringe [[id number]] Ordering Provider: Meme Castro MD Status: Completed [...] CLASSIC) 1.4-0.6 % ophthalmic solution 1 drop [[id number]] Ordering Provider: Jeffrey Green MD Status: Dispensed Ordered On: 06/16/221911 Start: 06/16/222099 Ordered Dose (Remaining/Total): 1 drop (--/--) Route: each eye Frequency: 4 times daily Ordered Rate/Order Duration: -- / -- Timestamps Action Dose Route Other Information Performed 06/29/22821 Documented: 06/29/22823 Given 1 drop each eye Performed by: Manda Lake RN Scanned Package: 0732-9926-25 potassium chloride (KLOR-CON) packet 40 mEq [[id number]] Ordering Provider: Meme Castro MD Status: Completed [...] Performed by: Rachel Masters RN Scanned Package: [address]-8, [address]-9 potassium chloride 40 mEq/100 mL in sterile water (premix) 40 mEq [[id number]] Ordering Provider: Ashley Baer MD Status: Completed [...] mL in sterile water (premix) 40 mEq [[id number]] Ordering Provider: Meme Castro MD Status: Dispensed [...] Performed by: Rachel Masters RN Scanned Package: 6547-6460-20 potassium chloride ER (KLOR-CON) extended release tablet 30 mEq [[id number]] Ordering Provider: Tyra De La Torre MD [...] Performed by: Carlos Esparza RN Scanned Package: 73993-264-39, 72720-244-68, 91232-199-78 potassium chloride ER (KLOR-CON) extended release tablet 20 mEq [[id number]] Ordering Provider: Carey East MD Status: Completed [...] Performed by: Manda Lake RN Scanned Package: 8275-6607-63, 1351-5166-45 predniSONE (DELTASONE) tablet 50 mg [[id number]] Ordering Provider: Veronica Tavares MD Status: Completed (Past End Date/Time) Ordered On: 06/06/22 1344 Starts/Ends: 06/07/22 0000 - 06/07/22 1018 Ordered Dose (Remaining/Total): 50 mg (0/3) Route: oral Frequency: Every 6 hours Ordered Rate/Order Duration: -- / -- Admin Instructions: Call Radiology to schedule procedure after the 1st dose is administered. 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 Scanned Package: 2873-3606-90 ramelteon (ROZEREM) tablet 8 mg [[id number]] Ordering Provider: Marcelina Pickard NP Status: Dispensed Ordered On: 06/08/22918 Start: 06/08/22918 Ordered Dose (Remaining/Total): 8 mg (--/--) Route: feeding tube Frequency: Nightly PRN Ordered Rate/Order Duration: -- / -- Timestamps Action Dose Route Other Information Performed 06/08/222040 Documented: 06/08/222040 Given 8 mg feeding tube Performed by: Rachel Masters RN Scanned Package: [address]-6 sodium bicarbonate 8.4 % (1 mEq/mL) injection 50 mEq [[id number]] Ordering Provider: Champ Osborne MD PhD Status: [...] RN sodium chloride 0.9% IVPB 0-250 mL [[id number]] Ordering Provider: Meme Castro MD Status: Completed [...] Performed by: Carlos Esparza RN Scanned Package: 8544-7270-98 sodium chloride 0.9% IVPB 0-250 mL [[id number]] Ordering Provider: Robert Henry MD Status: Completed [...] New Bag 250 mL intravenous Performed by: Mragaret Escobar RN Scanned Package: 5875-2043-86 Rex Scale Flowsheet Row Most Recent Value [...] 06/23/2022129 Throat Intact ............filed at 06/23/2022129 Tongue [place], Moist ............filed at 06/23/2022129 Voice Deep ............filed at 06/22/2022 08 Mucous Membrane(s) Moist, [place] ............filed at 06/22/2022 08 Teeth and Gums [...] last 72 hours COVID-19 Coronavirus RNA Nasopharyngeal [[id number]] Resulted: 06/28/22 1703, Result status: Final result Ordering provider: Frank Bowers MD 06/28/22 1517 Resulting lab: [facility] Narrative: Is the patient experiencing any symptoms consistent with COVID (eg. Fever, cough, shortness of breath)?->No What is the reason for testing?->Placement in post-acute care setting (Rapid) Interpretive data: Synonyms for this test include: PCR and NAAT . This test is performed using the [employer] Xpert Xpress plus assay. This is a [...] . This test is performed using the [employer] Xpert Xpress plus assay. This is a [...] COVID-19 RNA Negative Negative -- -- eGFR [[id number]] (Abnormal) Resulted: 06/27/22457, Result status: Final result Ordering provider: Carey East MD 06/27/22350 Resulting lab: [facility] Specimen Information Type Source Collected On Blood -- 06/27/22350 Components Component Value Reference Range Flag Lab eGFR 6 90 - 130 mL/min/1.73 m2 L Low -- Basic metabolic panel [[id number]] (Abnormal) Resulted: 06/27/22457, Result status: Final result Ordering provider: Carey East MD 06/26/22 1800 Resulting lab: [facility] Specimen Information Type Source Collected On [...] mg/dL L Low -- CBC without differential [[id number]] (Abnormal) Resulted: 06/27/22434, Result status: Final result Ordering provider: Carey East MD 06/26/22 1800 Resulting lab: [facility] Specimen Information Type Source Collected On [...] results found ECG/EMG Results ECG 12 lead [[id number]] Resulted: 06/23/22 1628, Result status: Final result Ordering provider: Carey East MD 06/23/22 1330 Resulted by: Hudson Sal Jr., MD PhD Accession number: [id number] Resulting lab: [facility] elicit Components Component Value Reference Range Flag Lab Ventricular Rate EKG/Min 100 BPM -- -- Atrial Rate 100 BPM -- -- TX-Interval (MSEC) 182 ms -- -- QRS-Interval (MSEC) 106 ms -- -- QT-Interval (MSEC) 380 ms -- -- QTc 490 ms -- -- R Esopus -47 degrees -- -- T Esopus 105 degrees -- -- Diagnosis -- -- [...] on 06/23/2022 4:28:23 PM ECG 12 lead [[id number]] Resulted: 06/23/22 1444, Result status: Preliminary result Ordering provider: Carey East MD 06/23/22 1330 Resulted by: Hudson Sal Jr., MD PhD Accession number: [id number] Resulting lab: [facility] Zura! Component Value Reference Range Flag Lab Ventricular Rate EKG/Min 100 BPM -- -- Atrial Rate 100 BPM -- -- TX-Interval (MSEC) 182 ms -- -- QRS-Interval (MSEC) 106 ms -- -- QT-Interval (MSEC) 380 ms -- -- QTc 490 ms -- -- R Esopus -47 degrees -- -- T Esopus 105 degrees -- -- Diagnosis -- -- [...] depressed in Lateral leads ECG 12 lead [[id number]] Resulted: 06/22/22 1055, Result status: Final result Ordering provider: Fernando Torres MD 06/19/22 1255 Resulted by: Hudson Sal Jr., MD PhD Accession number: [id number] Resulting lab: [facility] [employer]! Component Value Reference Range Flag Lab Ventricular Rate EKG/Min 126 BPM -- -- Atrial Rate 63 BPM -- -- QRS-Interval (MSEC) 106 ms -- -- QT-Interval (MSEC) 360 ms -- -- QTc 521 ms -- -- R Esopus -53 degrees -- -- T Esopus 125 degrees -- -- Diagnosis -- -- [...] on 06/22/2022 10:55:43 AM ECG 12 lead [[id number]] Resulted: 06/21/22 1328, Result status: Final result Ordering provider: Fernando Torres MD 06/18/22 1831 Resulted by: Kenn Billingsley MD Accession number: [id number] Resulting lab: [facility] [employer]! Component Value Reference Range Flag Lab Ventricular Rate EKG/Min 133 BPM -- -- Atrial Rate 147 BPM -- -- QRS-Interval (MSEC) 102 ms -- -- QT-Interval (MSEC) 332 ms -- -- QTc 494 ms -- -- R Esopus -43 degrees -- -- T Esopus 123 degrees -- -- Diagnosis -- -- [...] on 06/21/2022 1:28:53 PM ECG 12 lead [[id number]] Resulted: 06/08/22 0942, Result status: Final result Ordering provider: Jeffrey Green MD 06/07/22 1647 Resulted by: Jess Bustos MD Accession number: [id number] Resulting lab: [facility] [employer]! Component Value Reference Range Flag Lab Ventricular Rate EKG/Min 51 BPM -- -- Atrial Rate 51 BPM -- -- TX-Interval (MSEC) 212 ms -- -- QRS-Interval (MSEC) 130 ms -- -- QT-Interval (MSEC) 580 ms -- -- QTc 534 ms -- -- P Esopus 69 degrees -- -- R Esopus -38 degrees -- -- T Esopus 95 degrees -- -- Diagnosis -- -- [...] on 06/08/2022 9:42:26 AM ECG 12 lead [[id number]] Resulted: 06/07/22 0830, Result status: Final result Ordering provider: Toyin Alberto MD 06/05/221447 Resulted by: Jess Bustos MD Accession number: [id number] Resulting lab: [facility] [employer]! Component Value Reference Range Flag Lab Ventricular Rate EKG/Min 73 BPM -- -- Atrial Rate 73 BPM -- -- TX-Interval (MSEC) 184 ms -- -- QRS-Interval (MSEC) 106 ms -- -- QT-Interval (MSEC) 442 ms -- -- QTc 486 ms -- -- P Esopus 49 degrees -- -- R Esopus -33 degrees -- -- T Esopus 87 degrees -- -- Diagnosis -- -- -- -- Result: Normal sinus rhythm Left axis deviation QS in V1 and V2, a nonspecific finding with multiple causes, including lead misplacement or septal infarction in 20% Abnormal ECG Confirmed by JESS BUSTOS M.D ([id number]) on 06/07/2022 8:30:06 AM ECG 12 lead [[id number]] Resulted: 06/07/22 06, Result status: Preliminary result Ordering provider: Toyin Alberto MD 06/05/221447 Resulted by: Jess Bustos MD Accession number: [id number] Resulting lab: [facility] [employer]ura! Component Value Reference Range Flag Lab Ventricular Rate EKG/Min 73 BPM -- -- Atrial Rate 73 BPM -- -- TX-Interval (MSEC) 184 ms -- -- QRS-Interval (MSEC) 106 ms -- -- QT-Interval (MSEC) 442 ms -- -- QTc 486 ms -- -- P Esopus 49 degrees -- -- R Esopus -33 degrees -- -- T Esopus 87 degrees -- -- Diagnosis -- -- -- -- Result: Normal sinus rhythm Possible Left atrial enlargement Left axis deviation Septal infarct , age undetermined Abnormal ECG ECG 12 lead [[id number]] Resulted: 06/06/222156, Result status: Final result Ordering provider: Russ iMlner MD 06/04/222154 Resulted by: Kenn Billingsley MD Accession number: [id number] Resulting lab: [facility] [employer]ura! Component Value Reference Range Flag Lab Ventricular Rate EKG/Min 47 BPM -- -- Atrial Rate 47 BPM -- -- TX-Interval (MSEC) 228 ms -- -- QRS-Interval (MSEC) 116 ms -- -- QT-Interval (MSEC) 532 ms -- -- QTc 470 ms -- -- P Esopus 39 degrees -- -- R Esopus -33 degrees -- -- T Esopus 105 degrees -- -- Diagnosis -- -- -- -- Result: Sinus bradycardia with 1st degree A-V block Left axis deviation Incomplete left bundle branch block Nonspecific ST and T wave abnormality Long QTc When compared with ECG of 23-MAR-2017 00:14, [place] interval has increased QTc has increased Rate has decreased by 15 bpm Incomplete left bundle branch block is now Present Criteria for Septal infarct are not Present Confirmed by KENN BILLINGSLEY M.D ([id number]) on 06/06/2022 9:57:10 PM ECG 12 lead [[id number]] Resulted: 06/06/22943, Result status: Preliminary result Ordering provider: Russ Milner MD 06/04/222154 Resulted by: Kenn Billingsley MD Accession number: [id number] Resulting lab: [facility] [employer]ura! Component Value Reference Range Flag Lab Ventricular Rate EKG/Min 47 BPM -- -- Atrial Rate 47 BPM -- -- TX-Interval (MSEC) 228 ms -- -- QRS-Interval (MSEC) 116 ms -- -- QT-Interval (MSEC) 532 ms -- -- QTc 470 ms -- -- P Esopus 39 degrees -- -- R Esopus -33 degrees -- -- T Esopus 105 degrees -- -- Diagnosis -- -- -- -- Result: Sinus bradycardia with 1st degree A-V block Left axis deviation Incomplete left bundle branch block Abnormal QRS-T angle, consider primary T wave abnormality Abnormal ECG When compared with ECG of 23-MAR-2017 00:14, TX interval has increased Incomplete left bundle branch block is now Present Criteria for Septal infarct are no longer Present ECG 12 lead [[id number]] Resulted: 06/06/2232, Result status: Preliminary result Ordering provider: Toyin Alberto MD 06/05/22 1448 Resulted by: Jess Bustos MD Accession number: [id number] Resulting lab: [facility] elicit Components Component Value Reference Range Flag Lab Ventricular Rate EKG/Min 73 BPM -- -- Atrial Rate 73 BPM -- -- TX-Interval (MSEC) 184 ms -- -- QRS-Interval (MSEC) 106 ms -- -- QT-Interval (MSEC) 442 ms -- -- QTc 486 ms -- -- P Esopus 49 degrees -- -- R Esopus -33 degrees -- -- T Esopus 87 degrees -- -- Diagnosis -- -- -- -- Result: Normal sinus rhythm Possible Left atrial enlargement Left axis deviation Septal infarct , age undetermined Abnormal ECG ECG 12 lead [[id number]] Resulted: 06/06/22 0909, Result status: Preliminary result Ordering provider: Russ Milner MD 06/04/222154 Resulted by: Kenn Billingsley MD Accession number: [id number] Resulting lab: [facility] elicit Components Component Value Reference Range Flag Lab Ventricular Rate EKG/Min 47 BPM -- -- Atrial Rate 47 BPM -- -- TX-Interval (MSEC) 228 ms -- -- QRS-Interval (MSEC) 116 ms -- -- QT-Interval (MSEC) 532 ms -- -- QTc 470 ms -- -- P Esopus 39 degrees -- -- R Esopus -33 degrees -- -- T Esopus 105 degrees -- -- Diagnosis -- -- -- -- Result: Sinus bradycardia with 1st degree A-V block Left axis deviation Incomplete left bundle branch block Abnormal QRS-T angle, consider primary T wave abnormality Abnormal ECG When compared with ECG of 23-MAR-2017 00:14, [place] interval has increased Incomplete left bundle branch block is now Present Criteria for Septal infarct are no longer Present Testing Performed By Lab - Abbreviation Name Director Address Valid Date Range 24 - [facility] Unknown 03/28/170 - Present Progress Notes - Encounter Notes Notes from 06/27/22 through 06/29/22 Progress Notes by So Lawrence OT at 06/27/2022 9:37 AM Version 1 of 1 Author: Debeer, So M., OT Specialty: Occupational Therapy Author Type: Occupational Therapist Filed: 06/27/2022 11:01 AM Date of Service: 06/27/2022 9:37 AM Status: Signed Metal Painter: So Lawrence OT (Occupational Therapist) Occupational Therapy [...] not assigned to this patient, please call [phone]. 06/27/22 0937 General Session Type Treatment OT [...] of Service: 06/27/2022 4:57 PM Status: Signed Metal Painter: Carey East MD (Physician) Daily Progress Note Division of Hospital Medicine Name: Adelia Garvin Jr. Today: June 27, 2022 : 1970 Age: 51 y.o. male Admit: 06/04/2022 Bed: [id number] Subjective Chief complaint: CAD s/p PCI, T1DM, [...] 06/27/2022 0745 Gross per 24 hour Intake 07937 ml Output 74596 ml Net -1949 ml Physical Exam Constitutional: [...] transferred to the floor, improving. Atrial fibrillation ([facility]) ([facility]) Assessment & Plan Converted to NSR overnight [...] failure with reduced ejection fraction) ([facility]) Assessment & Plan C/b cardiogenic shock requiring impella in the setting of cath and AHRF 2/2 pulmonary edema, now resolved. TTE demonstrating recovered EF 65% with grade I diastolic dysfunction. - metop as above - continue low dose losartan 12.5mg daily, ok per nephro - volume management per PD ESRD (end stage renal disease) ([facility]) ([facility]) Assessment & Plan - Renal consulted, s/p CRRT in the ICU now back on PD. - Continue vitamins for renal bone mineral disease - continue phoslo Type 1 diabetes mellitus ([facility]) Assessment & Plan A1c well controlled on [...] PD * NSTEMI (non-ST elevated myocardial infarction) ([facility]) ([facility]) Assessment & Plan With recurrent chest pain [...] of Service: 06/27/2022 3:50 PM Status: Signed Metal Painter: Arleen Andre MD (Physician) ASSESSMENT AND RECOMMENDATIONS ESRD: He is doing well on the current PD regimen. Ultrafilters approximately 3895-6654 ml/day. Continue current regimen Hypokalemia: Start Kcl [...] (mL): 785 mL Fill Volume In (mL): 62031 mL Effluent Volume Out (mL): 90860 ml Balance This Exchange (mL): 1944 mL [...] Weight: Height: PD CATHETER: PD Catheter Site: [facility] PD Site Assessment: other findings scaly skin around the site Other findings: pleasant, conversing appropriately. Mild peripheral edema I/O last 2 completed shifts: In: 26734 [P.O.:440; Other:91355] Out: 07941 [Urine:300; Other:16413] I have reviewed current medications and the [...] FERRITIN 2,062 (H) 06/07/2022 Arleen Andre MD pre owned sales consultant Division of Nephrology Progress Notes by Frank Bowers MD at 06/28/2022 3:30 PM Version 1 of Author: Frank Bowers MD Specialty: Internal Medicine Author Type: Physician Filed: 06/28/2022 3:30 PM Date of Service: 06/28/2022 3:30 PM Status: Signed Metal Painter: Frank Bowers MD (Physician) Daily Progress Note Division of Hospital Medicine Name: Adelia Garvin Jr. Today: June 28, 2022 : 1970 Age: 51 y.o. male Admit: 06/04/2022 Bed: [id number] Subjective Chief complaint: NSTEMI Interval History: Pt [...] 06/28/2022 1300 Gross per 24 hour Intake 00593 ml Output 19161 ml Net -851 ml Physical Exam Constitutional: [...] (non-ST elevated myocardial infarction) (CMS/HCC) ([facility]) Assessment & Plan With recurrent chest pain [...] been accepted ESRD (end stage renal disease) ([facility]) ([facility]) Assessment & Plan - Renal consulted, s/p CRRT in the ICU now back on PD. Tolerated well and nephrology following - Trialysis catheter removed - Continue vitamins for renal bone mineral disease. Type 1 diabetes mellitus ([facility]) Assessment & Plan A1c well controlled on [...] increase NPH 45u before PD Atrial fibrillation ([facility]) ([facility]) Assessment & Plan Converted to NSR overnight [...] failure with reduced ejection fraction) ([facility]) Assessment & Plan C/b cardiogenic shock requiring [...] Hb. Acute hypoxemic respiratory failure ([facility]) Assessment & Plan Secondary to ACS and flash pulmonary edema, since resolved and extubated on 06/19. Patient passed barium swallow on 06/21. Progress Notes by Frank Bowers MD at 06/29/2022 10:12 AM Version 1 of 1 Author: Frank Bowers MD Specialty: Internal Medicine Author Type: Physician Filed: 06/29/2022 10:12 AM Date of Service: 06/29/2022 10:12 AM Status: Signed Metal Painter: Frank Bowers MD (Physician) Daily Progress Note Division of Hospital Medicine Name: Adelia Garvin Jr. Today: June 29, 2022 : 1970 Age: 51 y.o. male Admit: 06/04/2022 Bed: [id number] Subjective Chief complaint: NSTEMI Interval History: Pt [...] 06/29/2022 0815 Gross per 24 hour Intake 53599 ml Output 37470 ml Net -664 ml Physical Exam Constitutional: [...] Resolved. * NSTEMI (non-ST elevated myocardial infarction) ([facility]) ([facility]) Assessment & Plan With recurrent chest pain [...] today ESRD (end stage renal disease) (CMS/HCC) ([facility]) Assessment & Plan - Renal consulted, s/p [...] start of peritoneal dialysis session Atrial fibrillation ([facility]) ([facility]) Assessment & Plan Converted to NSR overnight [...] failure with reduced ejection fraction) ([facility]) Assessment & Plan C/b cardiogenic shock requiring [...] of Service: 06/29/2022 10:13 AM Status: Signed Metal Painter: Frank Bowers MD (Physician) Inpatient Discharge Summary BRIEF OVERVIEW Admitting Provider: Catherine Adams MD Discharge Provider: Frank Bowers MD Primary Care Physician at Discharge: Aditya Castro MD [phone] Admission Date: 06/04/2022 Discharge Date: 06/29/2022 Admission Location: [facility] Problems/Diagnoses: Principal Problem: NSTEMI (non-ST elevated myocardial infarction) ([facility]) ([facility]) Active Problems: Cardiogenic shock ([facility]) Type 1 diabetes mellitus ([facility]) ESRD (end stage renal disease) ([facility]) ([facility]) Acute hypoxemic respiratory failure ([facility] Anemia Acute on chronic HFrEF (heart failure with reduced ejection fraction) ([facility]) Atrial fibrillation ([facility]) ([facility]) Resolved Problems: No resolved hospital problems. DETAILS OF HOSPITAL STAY Presenting Problem/History of Present Illness: As per Admission H&P AC), HTN, CAD s/p stent 04/06 and 3 stent 12/07, T1DM (insulin pump at home), ESRD on PD, HLD, GERD, hyperparathyroidism, DDD, OA, gout, BEN on CPAP initially presented to [facility] for n/v andchest pain, transferred to [facility] for LHC/PCI, now presenting to CCU s/p complex PCI with impella and intubated. At the OSH he presented with 3d generalized weakness, chills, ROONEY, n/v, chest pain relieved by sublingual ntg. His labs were notable for trop 1.0-->1.09-->0.729, BNP 93073. He had a CT CAP showing cholelithiasis [...] circumflex as optimal treatment, prompting transfer to [place]. He arrived at [place] 06/05. EKG showed sinus bradycardia, 1st deg [...] 06/22. * NSTEMI (non-ST elevated myocardial infarction) ([facility]) ([facility]) With interventions described above. Post-transfer and post-cath, [...] on discharge given pressure tolerance. Atrial fibrillation ([facility]) ([facility]) He was in atrial fibrillation on transfer [...] failure with reduced ejection fraction) ([facility]) He developed cardiogenic shock requiring impella in the setting of cath c/b AHRF 2/2 pulmonary edema. Post-cath, TTE demonstrated recovered EF 65% with grade I diastolic dysfunction. Volume was managed with CRRT in ICU, then by resumption of PD on the medical floor. In discussion with nephrology, low dose losartan was started for GDMT in addition to metoprolol. ESRD (end stage renal disease) ([facility]) ([facility]) Renal consulted on admission with history of ESRD on PD. While in ICU, temporary dialysis catheter was placed to facilitate CRRT for volume removal. Upon transfer to the floor, PD was continued and tolerated well. He was continued on his home vitamins for renal bone mineral disease and phoslo. Trialysis removed 06/25. Type 1 diabetes mellitus ([facility]) Prior to admission, his A1c was well [...] REMOVE PERC ARTERIAL VAD (IMPELLA), DIFFERENT SESSION 20184 Other Procedures: Pertinent Test Results: See hospital [...] Influenza, Quadrivalent, Split, Preservative Free, Intramuscular 06/04/22 Global Ad Source (J&J) SARS-CoV-2 Vaccination 11/04/20 Moderna SARS-CoV-2 Vaccination (12+ YRS) 09/21/21 Generated by [id number] at 06/29/22 11:31 AM Page TION SALES ADVISOR * Assessment & Plan Note - Frank Bowers MD - 06/29/2022 10:12 AM VACATION SALES ADVISOR Associated Problem(s): Atrial fibrillation (CMS/HCC) (HCC) Converted to NSR overnight on 06/24. CHADsVASc of 4 not on anticoagulation prior to admission. - cardiology consulted - recommended ongoing rate control - holding off on a/c with high risk for bleeding while on DAPT - reduced metop to 25mg BID in the setting of hypotension, HR 70s NSR TION SALES ADVISOR * Assessment & Plan Note - Frank Bowers MD - 06/29/2022 10:12 AM VACATION SALES ADVISOR Associated Problem(s): Acute on chronic HFrEF (heart failure with reduced ejection fraction) (HCC) C/b cardiogenic shock requiring impella in the setting of cath and AHRF 2/2 pulmonary edema, now resolved. TTE demonstrating recovered EF 65% with grade I diastolic dysfunction. - metop as above - continue low dose losartan 12.5mg daily, ok per nephro. Tolerating well - volume management per PD TION SALES ADVISOR * Assessment & Plan Note - Frank Bowers MD - 06/29/2022 10:12 AM VACATION SALES ADVISOR Associated Problem(s): Anemia Stable, likely 2/2 anemia from ESRD, no evidence of bleeding. Underwent CT c/a/p without internal hematoma. - Monitor and trend Hb. TION SALES ADVISOR * Assessment & Plan Note - Frank Bowers MD - 06/29/2022 10:12 AM VACATION SALES ADVISOR Associated Problem(s): Acute hypoxemic respiratory failure (HCC) Secondary to ACS and flash pulmonary edema, since resolved and extubated on 06/19. Patient passed barium swallow on 06/21. TION SALES ADVISOR * Assessment & Plan Note - Frank Bowers MD - 06/29/2022 10:12 AM VACATION SALES ADVISOR Associated Problem(s): ESRD (end stage renal disease) (CMS/HCC) (HCC) - Renal consulted, s/p CRRT in the ICU now back on PD. Tolerated well and nephrology following - Trialysis catheter removed - Continue vitamins for renal bone mineral disease. TION SALES ADVISOR * Assessment & Plan Note - Frank Bowers MD - 06/29/2022 10:11 AM VACATION SALES ADVISOR Associated Problem(s): Type 1 diabetes mellitus (HCC) [...] units with start of peritoneal dialysis session TION SALES ADVISOR * Assessment & Plan Note - Frank Bowers MD - 06/29/2022 10:11 AM VACATION SALES ADVISOR Associated Problem(s): Cardiogenic shock (HCC) Secondary to NSTEMI, s/p Impella since removed on 06/10. Resolved. TION SALES ADVISOR * Assessment & Plan Note - Frank Bowers MD - 06/29/2022 10:11 AM VACATION SALES ADVISOR Associated Problem(s): NSTEMI (non-ST elevated myocardial infarction) [...] Pt overall improving, DC to rehab today TION SALES ADVISOR * Subjective & Objective - Frank Bowers MD - 06/29/2022 10:10 AM VACATION SALES ADVISOR Daily Progress Note Division of Hospital Medicine Name: Adelia Garvin Jr. Today: June 29, 2022 : 1970 Age: 51 y.o. male Admit: 06/04/2022 Bed: [id number] Subjective Chief complaint: NSTEMI Interval History: Pt [...] 06/29/2022 0815 Gross per 24 hour Intake 41657 ml Output 59603 ml Net -664 ml Physical Exam Constitutional: [...] controlled, some low 200 Negative covid test. TION SALES ADVISOR * Plan of Care - [place] [...] to chair, discharge to inpatient rehab today TION SALES ADVISOR * Summary of Treatment Recommendations Non-Billable - [...] yearly or sooner as indicated by your retirement benefits specialist Pending results for primary service or primary care physician to follow up on: None at time of discharge Follow Up Plan: Follow up with endocrinology near his home 1-2 weeks after discharge to reassess glycemic management and adjust insulin pump settings as needed. TION SALES ADVISOR * Plan of Care - Gucic Macedo RRT - 06/29/2022 1:28 AM CST BEN Continue on NPPV TION SALES ADVISOR * Consults, Subsequent - James Horvath MD - 06/28/2022 5:36 PM VACATION SALES ADVISOR NEPHROLOGY CONSULT SUBSEQUENT VISIT INTERVAL HISTORY: NAEO. [...] 06/27/22699 - 06/28/2265806/28/22699 - 06/29/22 0659 Shift 2090-7873 7235-3788 24 Hour Total 1899-0659 24 Hour Total INTAKE P.O. 400 400 Other 64408 66306 Shift Total(mL/kg) 04478(101.4) 34106(101.4) 400(3.3) 400(3.3) OUTPUT Urine(mL/kg/hr) 200(0.1) 200(0.1) 150 150 Other 48746 15113 Shift Total(mL/kg) 200(1.7) 17371(110.5) 25877(112.2) 150(1.2) 150(1.2) NET -200 -1101 -1301 250 [...] Fellow PGY-4 Consult 1 Service Contact (phone): [phone] After hours and weekends: please page [phone] Cosigned by Arleen Andre MD at 06/28/2022 8:35 PM VACATION SALES ADVISOR TION SALES ADVISOR TION SALES ADVISOR Associated attestation - Arleen Andre MD - 06/28/2022 8:35 PM VACATION SALES ADVISOR I saw and examined the patient on 06/28/2022. I have discussed the patient's management with the nephrology fellow/resident. I agree with the findings, assessment and plan of care as documented in thefellow's/resident's note. Additional history, findings, assessment and recommendations, if any, are outlined below. Arleen Andre MD pre owned sales consultant Division of Nephrology * Subjective & Objective - Frank Bowers MD - 06/28/2022 3:21 PM VACATION SALES ADVISOR Daily Progress Note Division of Hospital Medicine Name: Adelia Garvin Jr. Today: June 28, 2022 : 1970 Age: 51 y.o. male Admit: 06/04/2022 Bed: [id number] Subjective Chief complaint: NSTEMI Interval History: Pt [...] 06/28/2022 1300 Gross per 24 hour Intake 92458 ml Output 42727 ml Net -851 ml Physical Exam Constitutional: [...] this written report and agrees with it. TION SALES ADVISOR * Plan of Care - Elsie Gonzalez RN - 06/28/2022 3:16 PM CST Machine Adjuster Leader Case Trim noted patient has been recommended for inpatient rehab by PT/OT. correctional case manager met withthe patient at bedside to discuss recommendations by therapy and to work on a potential discharge disposition plan. Machine Adjuster Leader Case Trim provided education to patient on inpt rehab facilities and the rehabilitation process.Patient reported he was interested in short term inpatient rehab. correctional case manager explained to the patient the choices were limited due to his PD. Per patient request, CM sent referrals to inpatient rehab facilities near [facility] in [place] unable to accept PD at this time. CM sent referrals to [facility]. [facility] is able to accept PD patient and they have beds available tomorrow. Per patient choice will transfer to [facility] tomorrow. [facility] intake coord and care team notified of patient choice. TION SALES ADVISOR * Consults, Subsequent - Dora Delarosa NP - 06/28/2022 1:30 PM CST Endocrinology & Diabetes Progress Note Patient: Adelia Garvin Jr., 51 y.o. male (: 1970) Room: [place] [address] [address] ( ) LOS: 24 Adelia Garvin Jr. [...] agitation. 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, with chcf use of insulin, complicated by ESRD on PD, CAD s/p PCI, CHF - HbA1c 7.4% - Uses Omnipod and Dexcom G6 at home, not currently on this- doesn't have the supplies -On significantly higher basal rates on pump at night due to peritoneal dialysis -home settings: Basal rate 0330 >>1.7 0800 >> 0.8 2000 >> 5.8 ICR1:6.5 ISF1:25 [id number] TIA 4 Over the previous 24 hours, [...] recommend decreasing the basal insulin dose from 4191-1256 today. We will continue to intensely monitor [...] ## Discharge Planning - Follow-up with home reel worker -- Dora Delarosa NP Endocrinology, Metabolism, & Lipid Research Contact Info: New Consults: [phone]) General Endocrine (Non-Diabetes): [phone] (Check 'Treatment Team' assignment for Diabetes 1 vs 2 vs 3) Diabetes 1: Diabetes Fellow: [phone] Diabetes 2: Dora Delarosa NP: [phone] Diabetes 3: See Treatment Team Provider (or call Dora Delarosa, above) Diabetes After-Hours & Weekends: Diabetes Fellow TION SALES ADVISOR * Plan of Care - Elsie Gonzalez RN - 06/28/2022 1:24 PM CST CM sent 5 more referrals in [facility] for inpt rehab- awaiting response from facility that can accept PD patients TION SALES ADVISOR * Plan of Care - [place] [...] up to chair, monitor tele and vitals TION SALES ADVISOR * Plan of Care - Sasha Leonard [...] on-going diet recs, safe swallow strategies, and INSTRUCTIONAL TECHNOLOGY SPECIALIST POC, they verbalized understanding and agreement. ST to s/o. TION SALES ADVISOR * Hospital Course - Carey East MD - 06/27/2022 9:31 PM VACATION SALES ADVISOR Adelia Garvin Jr. is 51 y.o. male [...] 06/22. * NSTEMI (non-ST elevated myocardial infarction) ([facility]) ([facility]) With interventions described above. Post-transfer and post-cath, [...] DAPT and atorvastatin as well. Atrial fibrillation ([facility]) ([facility]) He was in atrial fibrillation on transfer [...] failure with reduced ejection fraction) ([facility]) He developed cardiogenic shock requiring impella in the setting of cath c/b AHRF 2/2 pulmonary edema. Post-cath, TTE demonstrated recovered EF 65% with grade I diastolic dysfunction. Volume was managed with CRRT in ICU, then by resumption of PD on the medical floor. In discussion with nephrology, low dose losartan was started for GDMT in addition to metoprolol. ESRD (end stage renal disease) ([facility] ([facility]) Renal consulted on admission with history of ESRD on PD. While in ICU, temporary dialysis catheter was placed to facilitate CRRT for volume removal. Upon transfer to the floor, PD was continued and tolerated well. He was continued on his home vitamins for renal bone mineral disease and phoslo. Trialysis removed 06/25. Type 1 diabetes mellitus ([facility]) Prior to admission, his A1c was well [...] barium swallow on 06/21. Remained on RA. TION SALES ADVISOR TION SALES ADVISOR * ECIN Note - Elsie Gonzalez RN [...] 06/27/22 0700 - 06/28/22 0659 Total Total 1814-1052 1144-8998 6980-2773 Total 4353-9574 3718-1428 5342-2296 Total Intake (ml) 65353 46988 340 100 75767 66333 -- -- -- -- Output (ml) 17184 50255 300 -- 90372 38921 200 -- -- 200 Net (ml) -2404 [...] Status Active Wound / Pressure ulcer / Ipneda / Negative Pressure Wound Wound 06/12/22 Hematoma [...] -- SpO2 -- 92 % 96 % TION SALES ADVISOR * Consults, Subsequent - Dora Delarosa NP - 06/27/2022 1:13 PM CST Endocrinology & Diabetes Progress Note Patient: Adelia Garvin Jr., 51 y.o. male (: 1970) Room: [place] [address] ( ) LOS: 23 Adelia Garvin Jr. [...] labs, imaging, and diagnostics independently reviewed in [facility] and commented on below. Lab Results [...] agitation. 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, with keno terminal operator use of insulin, complicated by ESRD on PD, CAD s/p PCI, CHF - HbA1c 7.4% - Uses Omnipod and Dexcom G6 at home, not currently on this- doesn't have the supplies -On significantly higher basal rates on pump at night due to peritoneal dialysis -home settings: Basal rate 0330 >>1.7 0800 >> 0.8 2000 >> 5.8 ICR1:6.5 ISF1:25 [id number] TIA 4 Over the previous 24 hours, [...] ## Discharge Planning - Follow-up with home reel worker -- Dora Delarosa NP Endocrinology, Metabolism, & Lipid Research Contact Info: New Consults: [phone]) General Endocrine (Non-Diabetes): [phone] (Check 'Treatment Team' assignment for Diabetes 1 vs 2 vs 3) Diabetes 1: Diabetes Fellow: [phone] Diabetes 2: Dora Delarosa NP: [phone] Diabetes 3: See Treatment Team Provider (or call Dora Delarosa, above) Diabetes After-Hours & Weekends: Diabetes Fellow TION SALES ADVISOR * Plan of Care - Adelita Self RN - 06/26/2022 3:00 PM CST Problem: Lack of Knowledge: Goal: Knowledge of disease or condition will improve Outcome: Progressing Goals: Clinical Goals for the Shift: up to chair Summary: Up to chair for about 2 hours. TION SALES ADVISOR * Plan of Care - Gucci Macedo, OPERATION SUPERVISOR - 06/26/2022 1:28 AM CDT BEN Continue [...] 0659 06/25/22 07 - 06/26/22 0659 Shift 2533-5566 0563-1169 24 Hour Total 3000-8793 1479-7588 24 Hour Total INTAKE Other 14626 83228 Shift Total(mL/kg) 64166(101.9) 07343(101.9) OUTPUT Other 39984 99200 Shift Total(mL/kg) 02586(122) 59561(122) NET -2404 -2404 Weight (kg) 119 119.7 [...] Fellow PGY-4 Consult 1 Service Contact (phone): [phone] After hours and weekends: please page [phone] Cosigned by Miriam Driver MD at 06/28/2022 8:11 AM VACATION SALES ADVISOR TION SALES ADVISOR Associated attestation - Miriam Driver MD - 06/28/2022 8:11 AM VACATION SALES ADVISOR I have seen and examined the patient on 06/25/22. I agree with the findings and plan of care as documented in the nephrology fellow's note. Miriam Driver MD Gusset Maker Division of Nephrology * Plan of Care - Adelita Self RN - 06/25/2022 10:00 AM CDT Problem: Health Behavior: Goal: Understanding of discharge needs will improve Outcome: Progressing Goals: Clinical Goals for the Shift: up to chair Summary: Up to chair for short period this am. * Plan of Care - Wandy Garay, OPERATION SUPERVISOR - 06/25/2022 4:45 AM CDT NPPV Situation: [...] 0659 06/24/22 07 - 06/25/22 0659 Shift 2664-7650 9936-5000 24 Hour Total 1066-2748 6975-7307 24 Hour Total INTAKE Other 39128 10766 IV Piggyback 250 250 Shift Total(mL/kg) 250(2.1) 81133(101.5) 90568(103.6) OUTPUT Urine(mL/kg/hr) 250(0.2) 250(0.1) Emesis/NG output 0 0 Other 79187 37737 Stool 0 0 Shift Total(mL/kg) 09142(106.5) 14840(106.5) NET 250 -066 -727 Weight (kg) 119.9 119.9 119.9 119 119 [...] Fellow PGY-4 Consult 1 Service Contact (phone): [phone] After hours and weekends: please page [phone] Cosigned by Miriam Driver MD at 06/24/2022 8:25 PM CDT Associated attestation - Miriam Driver MD - 06/24/2022 8:25 PM CDT I have seen and examined the patient on 06/24/22. I agree with the findings and plan of care as documented in the nephrology fellow's note. Agree with endocrinology. Continue PD settings. Miriam Driver MD Gusset Maker Division of Nephrology * Plan of Care [...] hygiene prior to po Specialty Instructions/Modifications: alert INSTRUCTIONAL TECHNOLOGY SPECIALIST if pt coughing with meals INSTRUCTIONAL TECHNOLOGY SPECIALIST noted pt was advanced to regular diet [...] updated diet recs, safe swallow strategies, and INSTRUCTIONAL TECHNOLOGY SPECIALIST POC, they verbalized understanding and agreement. ST will briefly continue to follow. * Consults, Subsequent - Dora Delarosa, APPLIANCE COUNSELOR - 06/24/2022 12:29 PM CDT Endocrinology & Diabetes Progress Note Patient: Adelia Garvin Jr., 51 y.o. male (: 1970) Room: [place] [id number] ( ) LOS: 20 Adelia Garvin Jr. [...] agitation. 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, with chcf use of insulin, complicated by ESRD on PD, CAD s/p PCI, CHF - HbA1c 7.4% - Uses Omnipod and Dexcom G6 at home, not currently on this- doesn't have the supplies -On significantly higher basal rates on pump at night due to peritoneal dialysis -home settings: Basal rate 0330 >>1.7 0800 >> 0.8 2000 >> 5.8 ICR1:6.5 ISF1:25 [id number] TIA 4 Over the previous 24 hours, [...] ## Discharge Planning - Follow-up with home reel worker -- Dora Delarosa NP Endocrinology, Metabolism, & Lipid Research Contact Info: New Consults: [phone]) General Endocrine (Non-Diabetes): [phone] (Check 'Treatment Team' assignment for Diabetes 1 vs 2 vs 3) Diabetes 1: Diabetes Fellow: [phone] Diabetes 2: Dora Delarosa APPLIANCE COUNSELOR: [phone] Diabetes 3: See Treatment Team Provider (or [...] assistance, please check the treatment team in [facility] for the assigned case monitor or contact the weekend Case Management phone [...] 06/24/2022 0536 Gross per 24 hour Intake 31678 ml Output 63496 ml Net -347 ml Physical Exam: General: [...] on PD who was transferred to [facility] for an impella-supported complex PCI on 06/07/22 [...] us if questions arise. Will Villavicencio MD Material Loader 11:36 AM 06/24/22 Cosigned by Musa Fernando MD at 06/25/2022 9:04 PM CDT Associated attestation - Musa Fernando MD - 06/25/2022 9:04 PM CDT 06/24/2022 I have personally seen and examined this pt with resident/Fellow/APPLIANCE COUNSELOR . I have reviewed History/Physical exam and plan for management. I agree with it . Musa Fernando M.D., Gerry. environmental compliance inspector [employer] [facility]. [place] This note contains information and [...] about verbage above please contact me at [phone]. . * Plan of Care - Jefferson [...] 06/23/22 0606/23/22 07 - 06/24/22 0659 Shift 7041-8604 24 Hour Total 6655-0322 7559-9808 24 Hour Total INTAKE Other 17474 73079 IV Piggyback 250 250 Shift Total(mL/kg) 58282(101.2) 21060(101.2) 250(2.1) 250(2.1) OUTPUT Urine(mL/kg/hr) 450 450 Other 74259 57691 Shift Total(mL/kg) 84337(122.6) 70880(122.6) [facility] -2579 -2571 250 250 Weight (kg) 120.5 120.5 119.9 [...] Fellow PGY-4 Consult 1 Service Contact (phone): [phone] After hours and weekends: please page [phone] Cosigned by Miriam Driver MD at 06/23/2022 8:48 PM CDT Associated attestation - Miriam Driver MD - 06/23/2022 8:48 PM CDT I have seen and examined the patient on 06/23/22. I agree with the findings and plan of care as documented in the nephrology fellow's note. Miriam Driver MD Gusset Maker Division of Nephrology * Assessment & Plan [...] dc tomorrow as pt has been accepted TION SALES ADVISOR TION SALES ADVISOR * Assessment & Plan Note - Frank [...] the setting of hypotension, HR 70s NSR TION SALES ADVISOR * Assessment & Plan Note - Frank Bowers MD - 06/23/2022 4:47 PM CDT Associated Problem(s): Acute on chronic HFrEF (heart failure with reduced ejection fraction) ([facility]) C/b cardiogenic shock requiring impella in the setting of cath and AHRF 2/2 pulmonary edema, now resolved. TTE demonstrating recovered EF 65% with grade I diastolic dysfunction. - metop as above - continue low dose losartan 12.5mg daily, ok per nephro. Tolerating well - volume management per PD TION SALES ADVISOR * Assessment & Plan Note - Frank Bowers MD - 06/23/2022 4:47 PM CDT Associated Problem(s): ESRD (end stage renal disease) ([facility] ([facility]) - Renal consulted, s/p CRRT in the ICU now back on PD. Tolerated well and nephrology following - Trialysis catheter removed - Continue vitamins for renal bone mineral disease. TION SALES ADVISOR * Assessment & Plan Note - Carey [...] resistant SSI increase NPH 45u before PD TION SALES ADVISOR * Consults, Subsequent - Dora Delarosa NP - 06/23/2022 1:48 PM CDT Endocrinology & Diabetes Progress Note Patient: Adelia Garvin Jr., 51 y.o. male (: 1970) Room: [place] [address] ( ) LOS: 19 Adelia Garvin Jr. [...] agitation. 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, with keno terminal operator use of insulin, complicated by ESRD on PD, CAD s/p PCI, CHF - HbA1c 7.4% - Uses Omnipod and Dexcom G6 at home, not currently on this- doesn't have the supplies -On significantly higher basal rates on pump at night due to peritoneal dialysis -home settings: Basal rate 0330 >>1.7 0800 >> 0.8 2000 >> 5.8 ICR1:6.5 ISF1:25 [id number] TIA 4 Over the previous 24 hours, [...] ## Discharge Planning - Follow-up with home reel worker -- Dora Delarosa NP Endocrinology, Metabolism, & Lipid Research Contact Info: New Consults: [phone]) General Endocrine (Non-Diabetes): [phone] (Check 'Treatment Team' assignment for Diabetes 1 vs 2 vs 3) Diabetes 1: Diabetes Fellow: [phone] Diabetes 2: Dora Delarosa NP: [phone] Diabetes 3: See Treatment Team Provider (or [...] 0659 06/22/22 07 - 06/23/22 0659 Shift 8668-4753 24 Hour Total 3690-5257 4392-9991 24 Hour Total INTAKE I.V.(mL/kg) 133.2(1.1) Other 68373 37914 NG/GT 100 Shift Total(mL/kg) 78703(93.8) 74883.2(95.7) OUTPUT Urine(mL/kg/hr) 450 450 Emesis/NG output 0 Other 18620 31789 Shift Total(mL/kg) 42322(108.4) 88865(108.4) 450(3.7) 450(3.7) NET -1759 -1525.8 -450 -450 [...] Fellow PGY-4 Consult 1 Service Contact (phone): [phone] After hours and weekends: please page [phone] Cosigned by Miriam Driver MD at 06/23/2022 11:57 AM CDT Associated attestation - Miriam Driver MD - 06/23/2022 11:57 AM CDT I have seen and examined the patient on 06/22/22. I agree with the findings and plan of care as documented in the nephrology fellow's note. Miriam Driver MD Gusset Maker Division of Nephrology * Assessment & Plan [...] 8:18 PM CDT Associated Problem(s): Atrial fibrillation ([facility] ([facility]) -Currently rated controlled with metoprolol, CHADsVASc of 4 not on anticoagulation prior to admission. -Follow cardiology for initiation of AC. * Assessment & Plan Note - Luiz Lewis DO - 06/22/2022 8:16 PM CDT Associated Problem(s): Acute on chronic HFrEF (heart failure with reduced ejection fraction) ([facility]) -With acute exacerbation complicated by pulmonary edema since resolved. -Repeat TTE following Impella removal showed recovered EF of 65% with grade I diastolic dysfunction. -Continue metoprolol tartrate, start GDMT per cardiology. * Assessment & Plan Note - Luiz Lewis DO - 06/22/2022 8:15 PM CDT Associated Problem(s): ESRD (end stage renal disease) ([facility]) ([facility]) -Renal consulted, s/p CRRT in the ICU [...] n/v and chest pain, transferred to [facility] for LHC/PCI, who presented to CCU s/p complex PCI with impella and intubated. Now extubated, tolerating PO intake, on home PD. Arrived at [place] from [facility] on 06/05. EKG showed sinus [...] Elsie of the [facility] service. QUESTIONS? Call [phone] * Subjective & Objective - Luiz Lewis, [...] at 06/22/20221944 Gross per 24 hour Intake 77952 ml Output 34926 ml Net -2209 ml Constitutional - chronically [...] place: 51 yo male transferred to [facility] ICU for complex PCI with impella.Unable to [...] Patient and/or family are agreeable with plan. correctional case manager will continue to follow and assist with discharge planning as needed. If any further discharge needs arise, please contact the covering case monitor. Rossi Hay RN * Consults, Subsequent - Dora Delarosa NP - 06/22/2022 12:39 PM CDT Endocrinology & Diabetes Progress Note Patient: Adelia Garvin Jr., 51 y.o. male (: 1970) Room: [place] [address] ( ) LOS: 18 Adelia Garvin Jr. [...] agitation. 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, with keno terminal operator use of insulin, complicated by ESRD on PD, CAD s/p PCI, CHF - HbA1c 7.4% - Uses Omnipod and Dexcom G6 at home, not currently on this- doesn't have the supplies -On significantly higher basal rates on pump at night due to peritoneal dialysis -home settings: Basal rate 0330 >>1.7 0800 >> 0.8 2000 >> 5.8 ICR1:6.5 ISF1:25 [id number] TIA 4 Over the previous 24 hours, [...] ## Discharge Planning - Follow-up with home reel worker -- Dora Delarosa NP Endocrinology, Metabolism, & Lipid Research Contact Info: New Consults: [phone]) General Endocrine (Non-Diabetes): [phone] (Check 'Treatment Team' assignment for Diabetes 1 vs 2 vs 3) Diabetes 1: Diabetes Fellow: [phone] Diabetes 2: Dora Delarosa NP: [phone] Diabetes 3: See Treatment Team Provider (or call Dora Delarosa, above) Diabetes After-Hours & Weekends: Diabetes Fellow * Plan of Care - Jersey Castano, OPERATION SUPERVISOR - 06/22/2022 1:10 AM CDT Plan of [...] 0659 06/21/22 07 - 06/22/22 0659 Shift 3472-3741 6900-7974 24 Hour Total 9099-1627 1229-5263 24 Hour Total INTAKE I.V.(mL/kg) 225(1.8) 399.6(3.4) [...] Fellow PGY-4 Consult 1 Service Contact (phone): [phone] After hours and weekends: please page [phone] Cosigned by Miriam Driver MD at 07/04/2022 10:00 AM VACATION SALES ADVISOR TION SALES ADVISOR Associated attestation - Miriam Driver MD - 07/04/2022 10:00 AM VACATION SALES ADVISOR I have seen and examined the patient on 06/21/22. I agree with the findings and plan of care as documented in the nephrology Fellow's note. Miriam Driver MD [facility] * Consults, Subsequent - Dora Delarosa NP - 06/21/2022 1:09 PM CDT Endocrinology & Diabetes Progress Note Patient: Adelia Garvin Jr., 51 y.o. male (: 1970) Room: [place] [address]/[id number] ( ) LOS: 17 Adelia Garvin Jr. [...] labs, imaging, and diagnostics independently reviewed in [facility] and commented on below. Lab Results [...] agitation. 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, with chcf use of insulin, complicated by ESRD on PD, CAD s/p PCI, CHF - HbA1c 7.4% - Uses Omnipod and Dexcom G6 at home, not currently on this- doesn't have the supplies -On significantly higher basal rates on pump at night due to peritoneal dialysis -home settings: Basal rate 0330 >>1.7 0800 >> 0.8 2000 >> 5.8 ICR1:6.5 ISF1:25 [id number] TIA 4 Over the previous 24 hours, [...] ## Discharge Planning - Follow-up with home reel worker -- oDra Delarosa NP Endocrinology, Metabolism, & Lipid Research Contact Info: New Consults: [phone]) General Endocrine (Non-Diabetes): [phone] (Check 'Treatment Team' assignment for Diabetes 1 vs 2 vs 3) Diabetes 1: Diabetes Fellow: [phone] Diabetes 2: Dora Delarosa APPLIANCE COUNSELOR: [phone] Diabetes 3: See Treatment Team Provider (or [...] dialysis nursing of the conversation. I am terminal operations manager tonight, please do not hesitate to page if plans change. Chandrakant Nava MD Nephrology Fellow, PGY-4 Night Service [phone]. * Consults, Subsequent - Carol Sanchez MD - 06/20/2022 1:59 PM CDT Endocrinology & Diabetes Progress Note Patient: Adelia Garvin Jr., 51 y.o. male (: 1970) Room: [place] [address]/[id number] ( ) LOS: 16 Adelia Garvin Jr. [...] Plan 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, with chcf use of insulin, complicated by ESRD on PD, CAD s/p PCI, CHF - HbA1c 7.4% - Uses Omnipod and Dexcom G6 at home, not currently on this- doesn't have the supplies -On significantly higher basal rates on pump at night due to peritoneal dialysis -home settings: Basal rate 0330 >>1.7 0800 >> 0.8 2000 >> 5.8 ICR1:6.5 ISF1:25 [id number] TIA 4 High insulin requirements in setting [...] ## Discharge Planning - Follow-up with home reel worker -- Carol Sanchez MD Endocrinology, Metabolism, & Lipid Research Contact Info: New Consults: [phone]) General Endocrine (Non-Diabetes): [phone] (Check 'Treatment Team' assignment for Diabetes 1 vs 2 vs 3) Diabetes 1: Diabetes Fellow: [phone] Diabetes 2: Dora Delarosa APPLIANCE COUNSELOR: [phone] Diabetes 3: See Treatment Team Provider (or call Dora Delarosa, above) Diabetes After-Hours & Weekends: Diabetes Fellow * Plan of Care - Milly Cooper RN - 06/20/2022 12:41 PM CDT Rounds with MD, case monitor, social work, & charge nurse Medical chart [...] Patient and family are agreeable with plan. correctional case manager will continue to follow and assist [...] eventually back to PD Miriam Driver MD [facility] * Consults, Subsequent - [...] AM Result Value Ref Range Product code [id number] Unit Number [id number] Product Blood Type APOS Dispense Status ISSUED [...] AM Result Value Ref Range Product code [id number] Unit Number [id number] Product Blood Type APOS Dispense Status RETURNED [...] not require specific follow up. Please call terminal operations manager pulmonary consult fellow with additional questions or [...] findings: I/O last 2 completed shifts: In: 52552.4 [I.V.:1014.4; Other:51226; NG/GT:190; IV Piggyback:420] Out: 60896 [Other:27438] I have reviewed current medications and the [...] 93% I/O last 2 completed shifts: In: 24191.4 [I.V.:1014.4; Other:37400; NG/GT:190; IV Piggyback:420] Out: 69220 [Other:09552] I/O this shift: In: 480.2 [I.V.:480.2] Out: [...] 0.9% I/O last 2 completed shifts: In: 29704.3 [I.V.:1388.3; Other:66907; NG/GT:90; IV Piggyback:110] Out: 18312 [Other:36104; Stool:170] Objective Vitals: Vitals: 06/18/22 1508 BP: [...] Pulmonary will continue to follow. Please call terminal operations manager pulmonary consult fellow with additional questions or [...] Post Procedure Note Attending: Dr Payam Allison Rail Technician: Dr. Aric Whitlock Sedation/Anesthesia: Local Pre-Op/Pre-Procedure Diagnosis: [...] 0659 06/18/22 07 - 06/19/22 0659 Shift 6174-4963 0124-2104 24 Hour Total 9891-5007 7276-5766 24 Hour Total INTAKE I.V.(mL/kg) 953(7.3) 435.3(3.3) 1388.3(10.6) 189(1.4) 189(1.4) Other 7498 7483 07687 99304 74260 NG/GT 90 90 160 160 IV Piggyback 110 110 Shift Total(mL/kg) 8561(65.8) 8008.3(61.1) 26530.3(126.4) 93450(94.3) 05182(94.3) OUTPUT Urine(mL/kg/hr) 0(0) 0(0) Other 9865 7663 21956 71428 80325 Stool 170 170 Shift Total(mL/kg) 9865(75.8) 5754(43.9) 07396(119.1) 86096(115.6) 24828(115.6) [facility] -1304 2254.3 950.3 -2790 -2790 Weight (kg) [...] Fellow PGY-4 Consult 1 Service Contact (phone): [phone] After hours and weekends: please page [phone] Cosigned by Miriam Driver MD at 06/18/2022 7:03 PM CDT Associated attestation - Miriam Driver MD - 06/18/2022 7:03 PM CDT I have seen and examined the patient on 06/18/2022. I agree with the findings and plan of care as documented in the nephrology Fellow's note. Miriam Driver MD [facility] Neph[facility] * Pre-Procedure Note - [...] (HCC) Diabetes mellitus type I ([facility]) Dialysis patient ([facility]) (HCC) ESRD on dialysis ([facility]) ([facility]) GERD (gastroesophageal reflux disease) Hyperlipidemia Hypertension Sleep [...] been discussed with the patient and/or their bilingual call center representative. All questions answered and they agree to proceed. * This addendum was created to correct the sedation plan. Patient is already intubated and sedated.We will continue with current sedation. * Plan of Care - Jersey Castano, OPERATION SUPERVISOR - 06/18/2022 12:59 AM CDT Mechanical Ventilation [...] 07 - 06/17/2265806/17/22699 - 06/18/22 0659 Shift 2265-4129 4452-0928 24 Hour Total 8805-5892 8804-0628 24 Hour Total INTAKE I.V.(mL/kg) 856.1(6.8) 544.4(4.3) [...] Fellow PGY-4 Consult 1 Service Contact (phone): [phone] After hours and weekends: please page [phone] Cosigned by Miriam Driver MD at 06/17/2022 7:02 PM CDT Associated attestation - Miriam Driver MD - 06/17/2022 7:02 PM CDT I have seen and examined the patient on 06/17/2022. I agree with the findings and plan of care as documented in the nephrology Fellow's note. Miriam Driver MD [facility]ph[facility] * Consults, Subsequent - [...] Pulmonary will continue to follow. Please call terminal operations manager pulmonary consult fellow with additional questions or [...] Jr., 51 y.o. male (: 1970) Room: [place] [address]/[place] [address] ( ) LOS: 13 Adelia Garvin Jr. is a 51 y.o. male with PMHx CHF (EF 50% in 2017), atrial fibrillation not on OAC, HTN/HLD, CAD s/p PCI, ESRD on PD, hyperparathyroidism presenting with weakness, N/V, diarrhea and chest pain. He is scheduled for [facility] on 06/06. Diabetes service consulted for [...] Plan 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, with keno terminal operator use of insulin, complicated by ESRD on PD, CAD s/p PCI, CHF - HbA1c 7.4% - Uses Omnipod and Dexcom G6 at home, not currently on this- doesn't have the supplies -On significantly higher basal rates on pump at night due to peritoneal dialysis -home settings: Basal rate 0330 >>1.7 0800 >> 0.8 2000 >> 5.8 ICR1:6.5 ISF1:25 [id number] TIA 4 High insulin requirements in setting [...] ## Discharge Planning - Follow-up with home reel worker -- Delmar Longo MD PhD Endocrinology, Metabolism, & Lipid Research Contact Info: New Consults: [phone]) General Endocrine (Non-Diabetes): [phone] (Check 'Treatment Team' assignment for Diabetes 1 vs 2 vs 3) Diabetes 1: Diabetes Fellow: [phone] Diabetes 2: Dora Delarosa, APPLIANCE COUNSELOR: [phone] Diabetes 3: See Treatment Team Provider (or call Dora Delarosa, above) Diabetes After-Hours & Weekends: Diabetes Fellow * Plan of Care - Jersey Castano, OPERATION SUPERVISOR - 06/17/2022 12:49 AM CDT Mechanical Ventilation [...] 0659 06/16/22 07 - 06/17/22 0659 Shift 5703-7963 3906-7167 24 Hour Total 3055-3734 2322-8199 24 Hour Total INTAKE I.V.(mL/kg) 624.4(5.1) 669(5.4) 1293.4(10.3) 729.7(5.8) 729.7(5.8) Other 1000 60313 68336 NG/GT 275 275 100 100 Shift Total(mL/kg) 1899.4(15.4) 88516(102.8) 61549.4(118) 829.7(6.6) 829.7(6.6) OUTPUT Urine(mL/kg/hr) 0(0) 0(0) 0(0) 0 0 Other 27211 78950 Shift Total(mL/kg) 0(0) 09902(96.7) 35320(96.7) 0(0) 0(0) NET 1899.4 768 2667.4 829.7 [...] Fellow PGY-4 Consult 1 Service Contact (phone): [phone] After hours and weekends: please page [phone] Cosigned by Miriam Driver MD at 06/16/2022 [...] now due to hyperglycemia. Miriam Driver MD [facility] Nephrology * Pre-Procedure Note - [...] ramelteon I/O last 2 completed shifts: In: 94039.4 [I.V.:1293.4; Other:92556; NG/GT:275] Out: 72960 [Other:17732] Objective Vitals: Vitals: 06/16/221199 BP: Pulse: 81 [...] Pulmonary will continue to follow. Please call terminal operations manager pulmonary consult fellow with additional questions or [...] Jr., 51 y.o. male (: 1970) Room: [place] [address] ( ) LOS: 12 Adelia Garvin Jr. is a 51 y.o. male with PMHx CHF (EF 50% in 2017), atrial fibrillation not on OAC, HTN/HLD, CAD s/p PCI, ESRD on PD, hyperparathyroidism presenting with weakness, N/V, diarrhea and chest pain. He is scheduled for [facility] on 06/06. Diabetes service consulted for [...] Plan 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, with chcf use of insulin, complicated by ESRD on PD, CAD s/p PCI, CHF - HbA1c 7.4% - Uses Omnipod and Dexcom G6 at home, not currently on this- doesn't have the supplies -On significantly higher basal rates on pump at night due to peritoneal dialysis -home settings: Basal rate 0330 >>1.7 0800 >> 0.8 2000 >> 5.8 ICR1:6.5 ISF1:25 [id number] TIA 4 Currently on TF Glucerna 1.5 ( CHO 133) Recommendations: - please increase Lantus to 40 units qAM - Humalog 10 units Q4hrs - NPH 15 units at the beginning of PD session - Resistant correctional Humalog q4 hrs - POC glucoses q4hrs Discharge recommendations: - TBD ## Discharge Planning - Follow-up with home reel worker -- Kellee Magallanes MD Endocrinology, Metabolism, & Lipid Research Contact Info: New Consults: [phone]) General Endocrine (Non-Diabetes): [phone] (Check 'Treatment Team' assignment for Diabetes 1 vs 2 vs 3) Diabetes 1: Diabetes Fellow: [phone] Diabetes 2: Dora Delarosa, APPLIANCE COUNSELOR: [phone] Diabetes 3: See Treatment Team Provider (or [...] visit to the patient. Bryce Langley MD, [facility] [employer] sales consultant Division of Endocrinology, Metabolism & Lipid Research [...] * Plan of Care - Juanito Hernandez, OPERATION SUPERVISOR - 06/15/2022 10:13 PM CDT Patient was [...] Date 06/14/22699 - 06/15/2265806/15/22699 - 06/16/2259 Shift 2718-2021 5223-3186 24 Hour Total 3804-2539 3178-9550 24 Hour Total INTAKE I.V.(mL/kg) 520.5(4) 498.9(4.1) 1019.4(8.3) 624.4(5.1) 624.4(5.1) NG/GT 049 531 4142 275 275 Shift Total(mL/kg) 905.5(7) 1278.9(10.4) 2184.4(17.8) [...] Fellow PGY-4 Consult 1 Service Contact (phone): [phone] After hours and weekends: please page [phone] Cosigned by Miriam Driver MD at 06/15/2022 7:33 PM CDT Associated attestation - Miriam Driver MD - 06/15/2022 7:33 PM CDT I have seen and examined the patient on 06/15/2022. I agree with the findings and plan of care as documented in the nephrology Fellow's note. Miriam Driver MD [facility] Nephrology * Plan of Care [...] 2:12 PM CDT Rounds with MD, case monitor, social work, & charge nurse Medical chart [...] Patient and family are agreeable with plan. correctional case manager will continue to follow and assist with discharge planning as needed * Consults, Rodney - Miriam Driver MD - 06/14/2022 1:58 PM CDT Nephrology SLED/CRRT Procedure Note Date of Service: 06/14/2022 I saw and evaluated the patient during CRRT. Indication for OPERATION SUPERVISOR: ESRD Dialysis access: LIJ Trialysis catheter My [...] stable On systemic heparin Miriam Driver MD [facility] Nephrology Consult 1: After 4 [...] Pulmonary will continue to follow. Please call terminal operations manager pulmonary consult fellow with additional questions or [...] evaluated the patient during CRRT. Indication for OPERATION SUPERVISOR: ESRD Dialysis access: LIJ Trialysis catheter My [...] Jr., 51 y.o. male (: 1970) Room: [place] [address] [address] ( ) LOS: 9 Adelia Garvin Jr. [...] Plan 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, with keno terminal operator use of insulin, complicated by ESRD on PD, CAD s/p PCI, CHF - HbA1c 7.4% - Uses Omnipod and Dexcom G6 at home, not currently on this- doesn't have the supplies -On significantly higher basal rates on pump at night due to peritoneal dialysis -home settings: Basal rate 0330 >>1.7 0800 >> 0.8 2000 >> 5.8 ICR1:6.5 ISF1:25 [id number] TIA 4 Currently on TF Glucerna 1.5 ( CHO 133) Recommendations: - please decrease Lantus to 30 units qAM - Humalog 5 units Q4hrs - Resistant correctional Humalog q4 hrs - POC glucoses q4hrs Discharge recommendations: Start Omnipod insulin pump at pre-hospital settings #Acute hypoxic respiratory failure #ESRD on PD at home - on CRRT ## Discharge Planning - Follow-up with home reel worker We will sign off, we are happy to come back on board once he is back on his PD -- Kellee Magallanes MD Endocrinology, Metabolism, & Lipid Research Contact Info: New Consults: [phone]) General Endocrine (Non-Diabetes): [phone] (Check 'Treatment Team' assignment for Diabetes 1 vs 2 vs 3) Diabetes 1: Diabetes Fellow: [phone] Diabetes 2: Dora Delarosa, APPLIANCE COUNSELOR: [phone] Diabetes 3: See Treatment Team Provider (or [...] discussion with the patient. Bryce Langley MD, [facility] [employer] sales consultant Division of Endocrinology, Metabolism & Lipid Research [...] evaluated the patient during CRRT. Indication for OPERATION SUPERVISOR: ESRD Dialysis access: LIJ Trialysis catheter My [...] scale Q4h Ayah Hoang MD Endocrinology Fellow [phone] Cosigned by Ann Boston MD at 06/12/2022 [...] tablet 100 mg, 100 mg, oral, Q8H, Aunrag Mortensen MD insulin glargine (LANTUS, SEMGLEE) 100 unit/mL injection 33 Units, 33 Units, subcutaneous, QA, Meme Castro MD, 33 Units at 06/12/22 0837 insulin lispro (HumaLOG, ADMELOG) 100 unit/mL injection 0-10 Units, 0-10 Units, subcutaneous, Q4H [facility], Meme Castro MD, 4 Units at 06/12/22 [...] diaphragm with the tip excluded from the [id number]. Left internal jugular catheter projects at superior [...] respiratory failure (HCC) Assessment & Plan Mr. Gavrin is a 51 year old man history [...] scale Q4h Ayah Hoang MD Endocrinology Fellow [phone] Cosigned by Ann Boston MD at 06/12/2022 [...] evaluated the patient during CRRT. Indication for OPERATION SUPERVISOR: ESRD Dialysis access: LIJ Trialysis catheter My [...] this interval not displayed. Vonnie Cody MD pre owned sales consultant Division of Nephology Consult 1: After 4 [...] evaluated the patient during CRRT. Indication for OPERATION SUPERVISOR: ESRD Dialysis access: LIJ Trialysis catheter My [...] this interval not displayed. Vonnie Cody MD pre owned sales consultant Division of Nephology Consult 1: After 4 PM on , after 12 PM on Monday, and all day Monday, please contact on-call renal fellow at with questions. * Consults, Subsequent - Kellee Magallanes MD - 06/10/2022 1:00 PM CDT Endocrinology & Diabetes Progress Note Patient: Adelia Garvin Jr., 51 y.o. male (: 1970) Room: [place] [address]/[place] [address] ( ) LOS: 6 Adelia Garvin Jr. is a 51 y.o. male with PMHx CHF (EF 50% in 2017), atrial fibrillation not on OAC, HTN/HLD, CAD s/p PCI, ESRD on PD, hyperparathyroidism presenting with weakness, N/V, diarrhea and chest pain. He is scheduled for [facility] on 06/06. Diabetes service consulted for [...] Plan 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, with keno terminal operator use of insulin, complicated by ESRD on PD, CAD s/p PCI, CHF - HbA1c 7.4% - Uses Omnipod and Dexcom G6 at home, not currently on this- doesn't have the supplies -On significantly higher basal rates on pump at night due to peritoneal dialysis -home settings: Basal rate 0330 >>1.7 0800 >> 0.8 2000 >> 5.8 ICR1:6.5 ISF1:25 [id number] TIA 4 Recommendations: - Lantus 33 units [...] ## Discharge Planning - Follow-up with home reel worker -- Kellee Magallanes MD Endocrinology, Metabolism, & Lipid Research Contact Info: New Consults: [phone]) General Endocrine (Non-Diabetes): [phone] (Check 'Treatment Team' assignment for Diabetes 1 vs 2 vs 3) Diabetes 1: Diabetes Fellow: [phone] Diabetes 2: Dora Delarosa, APPLIANCE COUNSELOR: [phone] Diabetes 3: See Treatment Team Provider (or [...] discussion with the patient. Bryce Langley MD, [facility] [employer] sales consultant Division of Endocrinology, Metabolism & Lipid Research [...] unit/mL injection 33 Units 33 Units subcutaneous [facility] Meme Castro MD 33 Units at 06/10/22 0847 insulin lispro (HumaLOG, ADMELOG) 100 unit/mL injection 0-10 Units 0-10 Units subcutaneous Q4H [facility] Meme Castro MD 2 Units at [...] AM CDT * Plan of Care - Babmi Guerrero RN - 06/10/2022 6:52 AM CDT [...] mL/hr * Plan of Care - Perla iLno RN - 06/09/2022 6:24 PM CDT Goals: [...] evaluated the patient during CRRT. Indication for OPERATION SUPERVISOR: ESRD Dialysis access: LIJ Trialysis catheter My [...] this interval not displayed. Vonnie Cody MD pre owned sales consultant Division of Nephology Consult 1: After 4 [...] Jr., 51 y.o. male (: 1970) Room: [place] [address]/[place] [address] ( ) LOS: 5 Adelia Garvin Jr. is a 51 y.o. male with PMHx CHF (EF 50% in 2017), atrial fibrillation not on OAC, HTN/HLD, CAD s/p PCI, ESRD on PD, hyperparathyroidism presenting with weakness, N/V, diarrhea and chest pain. He is scheduled for [facility] on 06/06. Diabetes service consulted for [...] Plan 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, with keno terminal operator use of insulin, complicated by ESRD on PD, CAD s/p PCI, CHF - HbA1c 7.4% - Uses Omnipod and Dexcom G6 at home, not currently on this- doesn't have the supplies -On significantly higher basal rates on pump at night due to peritoneal dialysis -home settings: Basal rate 0330 >>1.7 0800 >> 0.8 2000 >> 5.8 ICR1:6.5 ISF1:25 [id number] TIA 4 Recommendations: - Lantus 33 units [...] ## Discharge Planning - Follow-up with home reel worker -- Kellee Magallanes MD Endocrinology, Metabolism, & Lipid Research Contact Info: New Consults: [phone]) General Endocrine (Non-Diabetes): [phone] (Check 'Treatment Team' assignment for Diabetes 1 vs 2 vs 3) Diabetes 1: Diabetes Fellow: [phone] Diabetes 2: Dora Delarosa, APPLIANCE COUNSELOR: [phone] Diabetes 3: See Treatment Team Provider (or [...] discussion with the patient. Bryce Langley MD, [facility] [employer] sales consultant Division of Endocrinology, Metabolism & Lipid Research [...] Jr., 51 y.o. male (: 1970) Room: [place] [address]/[id number] ( ) LOS: 4 Adelia Garvin Jr. [...] Plan 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, with chcf use of insulin, complicated by ESRD on PD, CAD s/p PCI, CHF - HbA1c 7.4% - Uses Omnipod and Dexcom G6 at home, not currently on this- doesn't have the supplies -On significantly higher basal rates on pump at night due to peritoneal dialysis -home settings: Basal rate 0330 >>1.7 0800 >> 0.8 2000 >> 5.8 ICR1:6.5 ISF1:25 [id number] TIA 4 Recommendations: - Lantus 33 units [...] ## Discharge Planning - Follow-up with home reel worker -- Kellee Magallanes MD Endocrinology, Metabolism, & Lipid Research Contact Info: New Consults: [phone]) General Endocrine (Non-Diabetes): [phone] (Check 'Treatment Team' assignment for Diabetes 1 vs 2 vs 3) Diabetes 1: Diabetes Fellow: [phone] Diabetes 2: Dora Delarosa, APPLIANCE COUNSELOR: [phone] Diabetes 3: See Treatment Team Provider (or [...] evaluated the patient during CRRT. Indication for OPERATION SUPERVISOR: ESRD Dialysis access: LIJ Trialysis catheter My [...] QAM insulin lispro, 0-10 Units, subcutaneous, Q4H [place] [Held by Provider] isosorbide mononitrate ER, 30 [...] -- 4.7* 7.2* 6.6* Vonnie Cody MD pre owned sales consultant Division of Nephology Consult 1: After 4 PM on , after 12 PM on Monday, and all day Monday, please contact on-call renal fellow at with questions. * Plan of Care - Joyce Begum, OPERATION SUPERVISOR - 06/08/2022 3:33 AM CDT Patient on mechanical ventilation. Wean as tolerated. * Plan of Care - Low Cardoso MD - 06/07/2022 4:37 PM CDT Nephrology update note Patient not seen, off the floor for cardiac catheterization Patient reportedly had cardiopulmonary decompensation requiring intubation. Additionally had Impella placed and undergoing ECMO evaluation Trialysis catheter placed while in cardiac laborer syrup machine Given need for aggressive volume removal, will start CVVHDF Low Cardoso MD Nephrology Fellow Consult 2 Service Contact via [employer] Message After 4pm on , after 12pm [...] given. Additionally hypoxic on blood gas. Assisted [facility] team in getting levo and epi gtt started, titrated up to 0.1mcg/kg/min each. Impella placed by interventional cardiology team. CTS at bedside for ECMO evaluation. Cj Yang, CA-3, Anesthesiology [facility] Cosigned by Cody Mendosa MD at 06/08/2022 2:17 PM CDT Associated attestation - Cody Mendosa MD - 06/08/2022 2:17 PM CDT Anesthesia STAT was called while patient in laborer syrup machine for complex PCI. Upon my arrival, he [...] to help with his volume overloaded state. Cdoy Mendosa MD Anesthesiology and Critical Care Medicine * Consults, Subsequent - Kellee Magallanes MD - 06/07/2022 12:14 PM CDT Endocrinology & Diabetes Progress Note Patient: Adelia Garvin Jr., 51 y.o. male (: 1970) Room: [facility]/NO* ( ) LOS: 3 [...] Plan 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, with keno terminal operator use of insulin, complicated by ESRD on PD, CAD s/p PCI, CHF - HbA1c 7.4% - Uses Omnipod and Dexcom G6 at home, not currently on this- doesn't have the supplies - - On significantly higher basal rates on pump at night due to peritoneal dialysis -home settings: Basal rate 0330 >>1.7 0800 >> 0.8 2000 >> 5.8 ICR1:6.5 ISF1:25 [id number] TIA 4 Recommendations: - Lantus 33 units [...] ## Discharge Planning - Follow-up with home reel worker -- Kellee Magallanes MD Endocrinology, Metabolism, & Lipid Research Contact Info: New Consults: [phone]) General Endocrine (Non-Diabetes): [phone] (Check 'Treatment Team' assignment for Diabetes 1 vs 2 vs 3) Diabetes 1: Diabetes Fellow: [phone] Diabetes 2: Dora Delarosa APPLIANCE COUNSELOR: [phone] Diabetes 3: See Treatment Team Provider (or [...] capsule 2 mg 2 mg oral Nightly Deewy Parra MD 2 mg at 06/06/22 2019 [...] monitor VS, improve oxygenation status, go to laborer syrup machine for LHC today,possibly do another scan for [...] Thank you, SIL Avilez, RN, CCDS Email: [email or web address] * Consults, Subsequent - Low Cardoso [...] Date 06/05/22699 - 06/06/2265806/06/22699 - 06/07/22658 Shift 7295-2418 5838-1211 24 Hour Total 0971-3808 6624-2569 24 Hour Total INTAKE P.O. 60 60 450 450 I.V.(mL/kg) 443.1(3.1) 443.1(3.1) 147.7(1) 147.7(1) Other 05404 33218 07645 IV Piggyback 105 105 Shift Total(mL/kg) 49805(84.2) 63050.1(86.1) 33226.1(170.3) 597.7(4.2) 597.7(4.2) OUTPUT Urine(mL/kg/hr) 0(0) 6(0) 6(0) 0 0 Other 90189 86257 96870 Stool 0 0 Shift Total(mL/kg) 05645(87.7) 29821(98.3) 83854(186) 0(0) 0(0) NET -498 -1729.9 -2227.9 597.7 [...] Nephrology Fellow Consult 2 Service Contact via [employer] Message After 4pm on , after 12pm [...] Jr., 51 y.o. male (: 1970) Room: [place] [address] [address] ( ) LOS: 2 Adelia Garvin Jr. is a 51 y.o. male with PMHx CHF (EF 50% in 2017), atrial fibrillation not on OAC, HTN/HLD, CAD s/p PCI, ESRD on PD, hyperparathyroidism presenting with weakness, N/V, diarrhea and chest pain. He is scheduled for [facility] on 06/06. Diabetes service consulted for [...] labs, imaging, and diagnostics independently reviewed in [facility] and commented on below. Lab Results Component Value Date TSH 0.80 03/21/2017 Lab Results Component Value Date CHOL 149 06/04/2022 TRIG 165 (H) 06/04/2022 HDL 34 (L) 06/04/2022 LDLCALC 82 06/04/2022 Lab Results Component Value Date 25HYDROVITD 22.7 (L) 03/22/2017 Lab Results Component Value Date HGBA1C 7.8 (H) 06/04/2022 Assessment & Plan 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, with chcf use of insulin, complicated by ESRD on PD, CAD s/p PCI, CHF - HbA1c 7.4% - Uses Omnipod and Dexcom G6 at home, not currently on this- doesn't have the supplies - - On significantly higher basal rates on pump at night due to peritoneal dialysis -home settings: Basal rate 0330 >>1.7 0800 >> 0.8 2000 >> 5.8 ICR1:6.5 ISF1:25 UAN008 TIA 4 Recommendations: - Lantus 33 units [...] ## Discharge Planning - Follow-up with home reel worker -- Kellee Magallanes MD Endocrinology, Metabolism, & Lipid Research Contact Info: New Consults: [phone]) General Endocrine (Non-Diabetes): [phone] (Check 'Treatment Team' assignment for Diabetes 1 vs 2 vs 3) Diabetes 1: Diabetes Fellow: [phone] Diabetes 2: Dora Delarosa APPLIANCE COUNSELOR: [phone] Diabetes 3: See Treatment Team Provider (or [...] Shift: Monitor VS and keep SBP 140-160, mason tender restoration 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 Pt denied other needs stating he has good support from his brother and son. SÁNCHEZ Virk, WINDOWS SERVER SUPPORT TECHNICIAN * Plan of Care - Manisha Wong [...] POCT GLUCOSE DEVICE Routine 06/29/2022 11:51 AM VACATION SALES ADVISOR POCT GLUCOSE DEVICE Routine 06/29/2022 7 :43 AM VACATION SALES ADVISOR POCT GLUCOSE DEVICE Routine 06/28/2022 8 :08 PM VACATION SALES ADVISOR COVID-19 CORONAVIRUS RNA Routine 06/28/2022 3:46 PM VACATION SALES ADVISOR POCT GLUCOSE DEVICE Routine 06/28/2022 3 :33 PM VACATION SALES ADVISOR POCT GLUCOSE DEVICE Routine 06/28/2022 11:42 AM VACATION SALES ADVISOR POCT GLUCOSE DEVICE Routine 06/28/2022 9 :53 AM VACATION SALES ADVISOR POCT GLUCOSE DEVICE Routine 06/28/2022 8 :37 AM VACATION SALES ADVISOR POCT GLUCOSE DEVICE Routine 06/28/2022 8 :20 AM VACATION SALES ADVISOR POCT GLUCOSE DEVICE Routine 06/28/2022 8 :02 AM VACATION SALES ADVISOR POCT GLUCOSE DEVICE Routine 06/28/2022 7 :41 AM VACATION SALES ADVISOR POCT GLUCOSE DEVICE Routine 06/27/2022 7 :51 PM VACATION SALES ADVISOR POCT GLUCOSE DEVICE Routine 06/27/2022 4 :54 PM VACATION SALES ADVISOR POCT GLUCOSE DEVICE Routine 06/27/2022 11:37 AM VACATION SALES ADVISOR POCT GLUCOSE DEVICE Routine 06/27/2022 7 :54 AM VACATION SALES ADVISOR EGFR Routine 06/27/2022 3:51 AM VACATION SALES ADVISOR CBC WITHOUT DIFFERENTIAL Routine 06/27/2022 3:51 AM VACATION SALES ADVISOR BASIC METABOLIC PANEL Routine 06/27/2022 3:51 AM VACATION SALES ADVISOR POCT GLUCOSE DEVICE Routine 06/27/2022 1 :54 AM VACATION SALES ADVISOR POCT GLUCOSE DEVICE Routine 06/26/2022 9 :14 PM VACATION SALES ADVISOR POCT GLUCOSE DEVICE Routine 06/26/2022 5 :53 PM VACATION SALES ADVISOR POCT GLUCOSE DEVICE Routine 06/26/2022 1 :16 PM VACATION SALES ADVISOR POCT GLUCOSE DEVICE Routine 06/26/2022 11:09 AM VACATION SALES ADVISOR POCT GLUCOSE DEVICE Routine 06/26/2022 9 :07 AM VACATION SALES ADVISOR POCT GLUCOSE DEVICE Routine 06/26/2022 7 :25 AM VACATION SALES ADVISOR EGFR Routine 06/26/2022 3:23 AM VACATION SALES ADVISOR CBC WITHOUT DIFFERENTIAL Routine 06/26/2022 3:23 AM VACATION SALES ADVISOR BASIC METABOLIC PANEL Routine 06/26/2022 3:23 AM VACATION SALES ADVISOR POCT GLUCOSE DEVICE Routine 06/26/2022 1 :32 [...] VIDEO IP Routine 06/21/2022 2:06 PM CDT INSTRUCTIONAL TECHNOLOGY SPECIALIST EVALUATE AND TREAT VIDEOFLUOROSCOPIC SWALLOW STUDY Routine [...] DEVICE Routine 06/17/2022 7 :40 PM CDT TX INSJ NON-TUNNELED CENTRAL VENOUS CATH AGE 5 [...] METABOLIC PANEL STAT 06/07/2022 10:58 PM CDT TX ARTL CATHJ/CANNULJ MNTR/TRANSFUSION SPX PRQ Routine 06/07/2022 [...] EGFR STAT 06/05/2022 3:22 PM CDT POCT UT-U-VGX-GLU-HCT,WB - ISTAT Routine 06/05/2022 3:22 PM CDT [...] * (ABNORMAL) POCT glucose (06/29/2022 11:51 AM VACATION SALES ADVISOR) Glucose, POC 302(H) 70 - 199 mg/dL [facility] Blood 06/29/2022 11:5 1 AM VACATION SALES ADVISOR 06/29/2022 11:51 AM VACATION SALES ADVISOR Frank Bowers MD LAB POCT ORDERABLES - DEVICE F inal Result [facility] [place] [address] * (ABNORMAL) POCT glucose (06/29/2022 7:43 AM VACATION SALES ADVISOR) Glucose, POC 262(H) 70 - 199 mg/dL [facility] Glucose comment 1 Glu2: RN/ Notified [facility] Blood 06/29/2022 7:43 AM VACATION SALES ADVISOR 06/29/2022 7:43 AM VACATION SALES ADVISOR us Frank Bowers MD LAB POCT ORDERABLES - DEVICE F inal Result Performing Organization Address City/[facility]/ZIP Co de Phone Number [facility] [place] [address] * (ABNORMAL) POCT glucose (06/28/2022 8:08 PM VACATION SALES ADVISOR) Pathologist [facility] Glucose, POC 260(H) 70 - 199 mg/dL [facility] Blood 06/28/2022 8:08 PM VACATION SALES ADVISOR 06/28/2022 8:08 PM VACATION SALES ADVISOR Frank Bowers MD LAB POCT ORDERABLES - DEVICE F inal Result Performing Organization Address [facility] de Phone Number [facility] Department [place] [address] * COVID-19 Coronavirus RNA Nasopharyngeal (06/28/2022 3:46 PM VACATION SALES ADVISOR) [facility] COVID-19 RNA Negative Negative [facility] Nasopharyngeal 06/28/2022 3: 46 PM VACATION SALES ADVISOR 06/28/2022 4:22 PM VACATION SALES ADVISOR Narrative [facility] - 06/28/2022 5:03 PM VACATION SALES ADVISOR Is the patient experiencing any symptoms consistent with COVID (eg. Fever, cough, shortness of breath)?->No What is the reason for testing?->Placement in post-acute care setting (Rapid) ??Interpretive data: Synonyms for this test include: PCR and NAAT . ??This test is performed using the [employer] Xpert Xpress plus assay. This is a [...] . ??This test is performed using the [employer] Xpert Xpress plus assay. This is a [...] ORD ERABLES Final Result Performing Organization Address City/[facility] Co de Phone Number [facility] [place] [address] * (ABNORMAL) POCT glucose (06/28/2022 3:33 PM VACATION SALES ADVISOR) Glucose, POC 299(H) 70 - 199 mg/dL [facility] Blood 06/28/2022 3:33 PM VACATION SALES ADVISOR 06/28/2022 3:33 PM VACATION SALES ADVISOR Frank Bowers MD LAB POCT ORDERABLES - DEVICE F inal Result Performing Organization Address [facility] Co de Phone Number [facility] Department [place] [address] * (ABNORMAL) POCT glucose (06/28/2022 11:42 AM VACATION SALES ADVISOR) Glucose, POC 281(H) 70 - 199 mg/dL [facility] Glucose comment 1 Glu2: RN/MD Notified [facility] Blood 06/28/2022 11:4 2 AM VACATION SALES ADVISOR 06/28/2022 11:42 AM VACATION SALES ADVISOR Frank Bowers MD LAB POCT ORDERABLES - DEVICE F inal Result Performing Organization Address City/[facility] Co de Phone Number [facility] Department [place] [address] * POCT glucose (06/28/2022 9:53 AM VACATION SALES ADVISOR) Glucose, POC 181 70 - 199 mg/dL [facility] Blood 06/28/2022 9:53 AM VACATION SALES ADVISOR 06/28/2022 9:53 AM VACATION SALES ADVISOR Frank Bowers MD LAB POCT ORDERABLES - DEVICE F inal Result Performing Organization Address City/[facility] [place] [place] [address] * POCT glucose (06/28/2022 8:37 AM VACATION SALES ADVISOR) Glucose, POC 121 70 - 199 mg/dL [facility] Blood 06/28/2022 8:37 AM VACATION SALES ADVISOR 06/28/2022 8:37 AM VACATION SALES ADVISOR Frank Bowers MD LAB POCT ORDERABLES - DEVICE F inal Result Performing Organization Address City/[facility] [place] [address] * POCT glucose (06/28/2022 8:20 AM VACATION SALES ADVISOR) Glucose, POC 95 70 - 199 mg/dL [facility] Blood 06/28/2022 8:20 AM VACATION SALES ADVISOR 06/28/2022 8:20 AM VACATION SALES ADVISOR Frank Bowers MD LAB POCT ORDERABLES - DEVICE F inal Result Performing Organization Address City/[facility] [place] [address] * POCT glucose (06/28/2022 8:02 AM VACATION SALES ADVISOR) Glucose, POC 75 70 - 199 mg/dL [facility] Blood 06/28/2022 8:02 AM VACATION SALES ADVISOR 06/28/2022 8:02 AM VACATION SALES ADVISOR Frank Bowers MD LAB POCT ORDERABLES - DEVICE F inal Result Performing Organization Address [facility] de Phone Number [facility] [place] [address] * (ABNORMAL) POCT glucose (06/28/2022 7:41 AM VACATION SALES ADVISOR) Glucose, POC 68(L) 70 - 199 mg/dL [facility] Glucose comment 1 Glu2: RN/MD Notified [facility] Blood 06/28/2022 7:41 AM VACATION SALES ADVISOR 06/28/2022 7:41 AM VACATION SALES ADVISOR Frank Bowers MD LAB POCT ORDERABLES - DEVICE F inal Result Performing Organization Address [facility] de Phone Number [facility] Department [place] [address] * POCT glucose (06/27/2022 7:51 PM VACATION SALES ADVISOR) Glucose, POC 199 70 - 199 mg/dL [facility] Blood 06/27/2022 7:51 PM VACATION SALES ADVISOR 06/27/2022 7:51 PM VACATION SALES ADVISOR Carey East MD LAB POCT ORDERABLES - DEVICE Final Result Performing Organization Address [facility] de Phone Number [facility] [place] [address] * POCT glucose (06/27/2022 4:54 PM VACATION SALES ADVISOR) Glucose, POC 143 70 - 199 mg/dL [facility] Blood 06/27/2022 4:54 PM VACATION SALES ADVISOR 06/27/2022 4:54 PM VACATION SALES ADVISOR Carey East MD LAB POCT ORDERABLES - DEVICE Final Result Performing Organization Address [facility] [place] [address] * (ABNORMAL) POCT glucose (06/27/2022 11:37 AM VACATION SALES ADVISOR) Glucose, POC 228(H) 70 - 199 mg/dL [facility] Glucose comment 1 Glu2: RN/MD Notified [facility] Blood 06/27/2022 11:3 7 AM VACATION SALES ADVISOR 06/27/2022 11:37 AM VACATION SALES ADVISOR Carey East MD LAB POCT ORDERABLES - DEVICE Final Result Performing Organization Address [facility] [place] [address] * (ABNORMAL) POCT glucose (06/27/2022 7:54 AM VACATION SALES ADVISOR) Glucose, POC 350(H) 70 - 199 mg/dL [facility] Blood 06/27/2022 7:54 AM VACATION SALES ADVISOR 06/27/2022 7:54 AM VACATION SALES ADVISOR Carey East MD LAB POCT ORDERABLES - DEVICE Final Result Performing Organization Address [facility] [place] [address] * (ABNORMAL) eGFR (06/27/2022 3:51 AM VACATION SALES ADVISOR) eGFR 6(L) 90 - 130 mL/min/1. 73 m2 [facility] Comment: Interpretive Data Reference Interval Normal [...] last reviewed 2021. Blood 06/27/2022 3:51 AM VACATION SALES ADVISOR 06/27/2022 4:28 AM VACATION SALES ADVISOR us Carey East MD LAB BLOOD ORDERABLES Final Result [facility] [place] [address] * (ABNORMAL) CBC without differential (06/27/2022 3:51 AM VACATION SALES ADVISOR) WBC 3.8 3.8 - 9.9 K/cumm [facility] Hgb 7.5(L) 13.0 - 17.5 g/dL [facility] Hct 22.8(L) 38.9 - 50.3 % [facility] Plt 294 150 - 400 K/cumm [facility] MPV 10.0 9.1 - 12.3 fL [facility] RBC 2.49(L) 4.30 - 5.80 M/cumm [facility] MCV 91.6 81.3 - 96.4 fL [facility] MCH 30.1 27.1 - 33.3 pg [facility] MCHC 32.9 32.3 - 35.7 g/dL [facility] RDW CV 17.5(H) 11.1 - 14.9 % [facility] RDW SD 57.9(H) 35.7 - 48.1 fL [facility] NRBC abs 0.00 0.00 - 0.01 K/cumm [facility] Blood 06/27/2022 3:51 AM VACATION SALES ADVISOR 06/27/2022 4:28 AM VACATION SALES ADVISOR us Carey East MD LAB BLOOD ORDERABLES Final Result [facility] [place] [address] * (ABNORMAL) Basic metabolic panel (06/27/2022 3:51 AM VACATION SALES ADVISOR) Sodium 132(L) 135 - 145 mmol/L [facility] Potassium, pl 3.1(L) 3.3 - 4.9 mmol/L [facility] Chloride 89(L) 97 - 110 mmol/L [facility] CO2 26 22 - 32 mmol/L [facility] Anion gap 17(H) 2 - 15 mmol/L [facility] BUN 46(H) 8 - 25 mg/dL [facility] Creatinine 10.21(H) 0.80 - 1.30 mg/dL [facility] Glucose 274(H) 70 - 199 mg/dL [facility] Comment: Interpretive Data Fasting glucose >/= [...] mg/dL [facility] Blood 06/27/2022 3:51 AM VACATION SALES ADVISOR 06/27/2022 4:28 AM VACATION SALES ADVISOR Carey East MD LAB BLOOD ORDERABLES Final Result Performing Organization Address [facility] Co de Phone Number [facility] [place] [address] * (ABNORMAL) POCT glucose (06/27/2022 1:54 AM VACATION SALES ADVISOR) Glucose, POC 276(H) 70 - 199 mg/dL [facility] Blood 06/27/2022 1:54 AM VACATION SALES ADVISOR 06/27/2022 1:54 AM VACATION SALES ADVISOR Carey East MD LAB POCT ORDERABLES - DEVICE Final Result Performing Organization Address [facility] Co de Phone Number [facility] [place] [address] * POCT glucose (06/26/2022 9:14 PM VACATION SALES ADVISOR) Glucose, POC 184 70 - 199 mg/dL [facility] Blood 06/26/2022 9:14 PM VACATION SALES ADVISOR 06/26/2022 9:14 PM VACATION SALES ADVISOR Carey East MD LAB POCT ORDERABLES - DEVICE Final Result Performing Organization Address [facility] de Phone Number [facility] [place] [address] * POCT glucose (06/26/2022 5:53 PM VACATION SALES ADVISOR) Glucose, POC 98 70 - 199 mg/dL [facility] Blood 06/26/2022 5:53 PM VACATION SALES ADVISOR 06/26/2022 5:53 PM VACATION SALES ADVISOR us Carey East MD LAB POCT ORDERABLES - DEVICE Final Result Performing Organization Address [facility] Co de Phone Number [facility] [place] [address] * (ABNORMAL) POCT glucose (06/26/2022 1:16 PM VACATION SALES ADVISOR) Glucose, POC 202(H) 70 - 199 mg/dL [facility] Blood 06/26/2022 1:16 PM VACATION SALES ADVISOR 06/26/2022 1:16 PM VACATION SALES ADVISOR Carey East MD LAB POCT ORDERABLES - DEVICE Final Result Performing Organization Address [facility] [place] [address] * (ABNORMAL) POCT glucose (06/26/2022 11:09 AM VACATION SALES ADVISOR) Glucose, POC 320(H) 70 - 199 mg/dL [facility] Glucose comment 1 Glu2: RN/MD Notified [facility] Blood 06/26/2022 11:0 9 AM VACATION SALES ADVISOR 06/26/2022 11:09 AM VACATION SALES ADVISOR us Carey East MD LAB POCT ORDERABLES - DEVICE Final Result Performing Organization Address [facility] [place] [address] * (ABNORMAL) POCT glucose (06/26/2022 9:07 AM VACATION SALES ADVISOR) Glucose, POC 400(H) 70 - 199 mg/dL [facility] Blood 06/26/2022 9:07 AM VACATION SALES ADVISOR 06/26/2022 9:07 AM VACATION SALES ADVISOR Carey East MD LAB POCT ORDERABLES - DEVICE Final Result Performing Organization Address [facility] Co de Phone Number [facility] [place] [address] * (ABNORMAL) POCT glucose (06/26/2022 7:25 AM VACATION SALES ADVISOR) Pathologist [facility] Glucose, POC 393(H) 70 - 199 mg/dL [facility] Glucose comment 1 Glu2: RN/MD Notified [facility] Blood 06/26/2022 7:25 AM VACATION SALES ADVISOR 06/26/2022 7:25 AM VACATION SALES ADVISOR Carey East MD LAB POCT ORDERABLES - DEVICE Final Result Performing Organization Address [facility] Co de Phone Number [facility] [place] [address] * (ABNORMAL) eGFR (06/26/2022 3:23 AM VACATION SALES ADVISOR) [facility] eGFR 5(L) 90 - 130 mL/min/1. 73 m2 [facility] Comment: Interpretive Data Reference Interval Normal [...] last reviewed 2021. Blood 06/26/2022 3:23 AM VACATION SALES ADVISOR 06/26/2022 5:00 AM VACATION SALES ADVISOR Carey East MD LAB BLOOD ORDERABLES Final Result [facility] Department [place] [address] * (ABNORMAL) CBC without differential (06/26/2022 3:23 AM VACATION SALES ADVISOR) WBC 4.1 3.8 - 9.9 K/cumm [facility] Hgb 7.6(L) 13.0 - 17.5 g/dL [facility] Hct 23.3(L) 38.9 - 50.3 % [facility] Plt 250 150 - 400 K/cumm [facility] MPV 10.7 9.1 - 12.3 fL [facility] RBC 2.49(L) 4.30 - 5.80 M/cumm [facility] MCV 93.6 81.3 - 96.4 fL [facility] MCH 30.5 27.1 - 33.3 pg [facility] MCHC 32.6 32.3 - 35.7 g/dL [facility] RDW CV 17.8(H) 11.1 - 14.9 % [facility] RDW SD 59.3(H) 35.7 - 48.1 fL [facility] NRBC abs 0.00 0.00 - 0.01 K/cumm [facility] Blood 06/26/2022 3:23 AM VACATION SALES ADVISOR 06/26/2022 5:00 AM VACATION SALES ADVISOR Carey East MD LAB BLOOD ORDERABLES Final Result [facility] [place] [address] * (ABNORMAL) Basic metabolic panel (06/26/2022 3:23 AM VACATION SALES ADVISOR) Pathologist [facility] Sodium 134(L) 135 - 145 mmol/L [facility] Potassium, pl 3.6 3.3 - 4.9 mmol/L [facility] Chloride 91(L) 97 - 110 mmol/L [facility] CO2 26 22 - 32 mmol/L [facility] Anion gap 17(H) 2 - 15 mmol/L [facility] BUN 47(H) 8 - 25 mg/dL [facility] Creatinine 10.28(H) 0.80 - 1.30 mg/dL [facility] Glucose 335(H) 70 - 199 mg/dL [facility] Comment: Interpretive Data Fasting glucose >/= [...] 2017. Calcium 8.5 8.5 - 10.3 mg/dL [facility] Blood 06/26/2022 3:23 AM VACATION SALES ADVISOR 06/26/2022 5:00 AM VACATION SALES ADVISOR us Carey East MD LAB BLOOD ORDERABLES Final Result [facility] [place] [address] * (ABNORMAL) POCT glucose (06/26/2022 1:32 AM CDT) Glucose, POC 334(H) 70 - 199 mg/dL [facility] Blood 06/26/2022 1:32 AM CDT 06/26/2022 1:32 AM CDT Carey East MD LAB POCT ORDERABLES - DEVICE Final Result Performing Organization Address [facility] Co de Phone Number [facility] [place] [address] * (ABNORMAL) POCT glucose (06/25/2022 9:02 PM CDT) Glucose, POC 257(H) 70 - 199 mg/dL [facility] Blood 06/25/2022 9:02 PM CDT 06/25/2022 9:02 PM CDT Carey East MD LAB POCT ORDERABLES - DEVICE Final Result Performing Organization Address [facility] Co de Phone Number [facility] [place] [address] * (ABNORMAL) POCT glucose (06/25/2022 6:30 PM CDT) Glucose, POC 223(H) 70 - 199 mg/dL [facility] Blood 06/25/2022 6:30 PM CDT 06/25/2022 6:30 PM CDT Carey East MD LAB POCT ORDERABLES - DEVICE Final Result Performing Organization Address [facility] Co de Phone Number [facility] [place] [address] * (ABNORMAL) POCT glucose (06/25/2022 4:21 PM CDT) Glucose, POC 241(H) 70 - 199 mg/dL [facility] Glucose comment 1 Glu2: RN/MD Notified [facility] Blood 06/25/2022 4:21 PM CDT 06/25/2022 4:21 PM CDT Carey East MD LAB POCT ORDERABLES - DEVICE Final Result Performing Organization Address [facility] de Phone Number [facility] [place] [address] * (ABNORMAL) POCT glucose (06/25/2022 11:42 AM CDT) [facility] Glucose, POC 296(H) 70 - 199 mg/dL [facility] Glucose comment 1 Glu2: RN/MD Notified [facility] Blood 06/25/2022 11:4 2 AM CDT 06/25/2022 11:42 AM CDT Carey East MD LAB POCT ORDERABLES - DEVICE Final Result Performing Organization Address [facility] de Phone Number [facility] [place] [address] * (ABNORMAL) POCT glucose (06/25/2022 7:42 AM CDT) [facility] Glucose, POC 363(H) 70 - 199 mg/dL [facility] Glucose comment 1 Glu2: RN/MD Notified [facility] Blood 06/25/2022 7:42 AM CDT 06/25/2022 7:42 AM CDT Carey East MD LAB POCT ORDERABLES - DEVICE Final Result Performing Organization Address [facility] [place] [address] * (ABNORMAL) eGFR (06/25/2022 4:36 AM CDT) [facility] eGFR 6(L) 90 - 130 mL/min/1. 73 m2 [facility] Comment: Interpretive Data Reference Interval Normal [...] BLOOD ORDERABLES Final Result Performing Organization Address [facility] Center Phone Number [facility] [place] [address] * (ABNORMAL) Phosphorus (06/25/2022 4:36 AM CDT) Phosphorus, pl 7.9(H) 2.3 - 4.5 mg/dL ALESSANDRA CARRION Comment:Reviewed Blood 06/25/2022 4:36 AM CDT 06/25/2022 5:15 AM CDT Carey East MD LAB BLOOD ORDERABLES Final Result Performing Organization Address [facility] Co de Phone Number [facility] [place] [address] * (ABNORMAL) Basic metabolic panel (06/25/2022 4:36 AM CDT) Sodium 135 135 - 145 mmol/L [facility] Potassium, pl 3.9 3.3 - 4.9 mmol/L [facility] Chloride 93(L) 97 - 110 mmol/L [facility] CO2 28 22 - 32 mmol/L [facility] Anion gap 14 2 - 15 mmol/L [facility] BUN 44(H) 8 - 25 mg/dL [facility] Creatinine 9.57(H) 0.80 - 1.30 mg/dL [facility] Glucose 281(H) 70 - 199 mg/dL [facility] Comment: Interpretive Data Fasting glucose >/= [...] 2017. Calcium 8.6 8.5 - 10.3 mg/dL [facility] Blood 06/25/2022 4:36 AM CDT 06/25/2022 5:15 AM CDT us Carey East MD LAB BLOOD ORDERABLES Final Result Performing Organization Address City/[facility]/ZIP Co de Phone Number ALESSANDRA CARRION [facility] [place] [address] * (ABNORMAL) POCT glucose (06/25/2022 1:41 AM CDT) Glucose, POC 265(H) 70 - 199 mg/dL [facility] Blood 06/25/2022 1:41 AM CDT 06/25/2022 1:41 AM CDT Carey East MD LAB POCT ORDERABLES - DEVICE Final Result Performing Organization Address [facility] Co de Phone Number [facility] [place] [address] * (ABNORMAL) POCT glucose (06/24/2022 8:01 PM CDT) Glucose, POC 246(H) 70 - 199 mg/dL [facility] Blood 06/24/2022 8:01 PM CDT 06/24/2022 8:01 PM CDT Carey East MD LAB POCT ORDERABLES - DEVICE Final Result Performing Organization Address [facility] Co de Phone Number [facility] Department [place] [address] * POCT glucose (06/24/2022 4:55 PM CDT) Glucose, POC 185 70 - 199 mg/dL [facility] Blood 06/24/2022 4:55 PM CDT 06/24/2022 4:55 PM CDT Carey East MD LAB POCT ORDERABLES - DEVICE Final Result Performing Organization Address [facility] Co de Phone Number [facility] [place] [address] * (ABNORMAL) POCT glucose (06/24/2022 12:53 PM CDT) Glucose, POC 275(H) 70 - 199 mg/dL [facility] Glucose comment 1 Glu2: RN/MD Notified [facility] Blood 06/24/2022 12:5 3 PM CDT 06/24/2022 12:53 PM CDT Carey East MD LAB POCT ORDERABLES - DEVICE Final Result Performing Organization Address [facility] [place] [address] * (ABNORMAL) POCT glucose (06/24/2022 11:31 AM CDT) Glucose, POC 346(H) 70 - 199 mg/dL [facility] Glucose comment 1 Glu2: RN/MD Notified [facility] Blood 06/24/2022 11:3 1 AM CDT 06/24/2022 11:31 AM CDT Craey East MD LAB POCT ORDERABLES - DEVICE Final Result Performing Organization Address [facility] [place] [address] * (ABNORMAL) POCT glucose (06/24/2022 9:54 AM CDT) Glucose, POC 411(H) 70 - 199 mg/dL [facility] Blood 06/24/2022 9:54 AM CDT 06/24/2022 9:54 AM CDT Carey East MD LAB POCT ORDERABLES - DEVICE Final Result Performing Organization Address [facility] [place] [address] * (ABNORMAL) POCT glucose (06/24/2022 7:33 AM CDT) Glucose, POC 415(H) 70 - 199 mg/dL [facility] Glucose comment 1 Glu2: RN/MD Notified [facility] Blood 06/24/2022 7:33 AM CDT 06/24/2022 7:33 AM CDT Carey East MD LAB POCT ORDERABLES - DEVICE Final Result [facility] [place] [address] * (ABNORMAL) eGFR (06/24/2022 4:10 AM CDT) Pathologist [facility] eGFR 7(L) 90 - 130 mL/min/1. 73 m2 [facility] Comment: Interpretive Data Reference Interval Normal [...] East MD LAB BLOOD ORDERABLES Final Result [facility] Department [place] [address] * (ABNORMAL) CBC without differential (06/24/2022 4:10 AM CDT) [facility] WBC 4.3 3.8 - 9.9 K/cumm [facility] Hgb 7.9(L) 13.0 - 17.5 g/dL [facility] Hct 24.0(L) 38.9 - 50.3 % [facility] Plt 206 150 - 400 K/cumm [facility] MPV 10.3 9.1 - 12.3 fL [facility] RBC 2.61(L) 4.30 - 5.80 M/cumm [facility] MCV 92.0 81.3 - 96.4 fL [facility] MCH 30.3 27.1 - 33.3 pg [facility] MCHC 32.9 32.3 - 35.7 g/dL [facility] RDW CV 18.5(H) 11.1 - 14.9 % [facility] RDW SD 58.3(H) 35.7 - 48.1 fL [facility] NRBC abs 0.00 0.00 - 0.01 K/cumm [facility] Blood 06/24/2022 4:10 AM CDT 06/24/2022 4:34 AM CDT Carey East MD LAB BLOOD ORDERABLES Final Result Performing Organization Address [facility] Co de Phone Number [facility] Department [place] [address] * (ABNORMAL) Basic metabolic panel (06/24/2022 4:10 AM CDT) [facility] Sodium 134(L) 135 - 145 mmol/L [facility] Potassium, pl 3.9 3.3 - 4.9 mmol/L [facility] Chloride 94(L) 97 - 110 mmol/L [facility] CO2 25 22 - 32 mmol/L [facility] Anion gap 15 2 - 15 mmol/L [facility] BUN 46(H) 8 - 25 mg/dL [facility] Creatinine 8.83(H) 0.80 - 1.30 mg/dL [facility] Glucose 390(H) 70 - 199 mg/dL [facility] Comment: Interpretive Data Fasting glucose >/= [...] 2017. Calcium 8.5 8.5 - 10.3 mg/dL [facility] Blood 06/24/2022 4:10 AM CDT 06/24/2022 4:34 AM CDT Carey East MD LAB BLOOD ORDERABLES Final Result Performing Organization Address City/[facility]/ZIP Co de Phone Number [facility] Department [place] [address] * (ABNORMAL) POCT glucose (06/24/2022 1:44 AM CDT) [facility] Signature Glucose, POC 389(H) 70 - 199 mg/dL [facility] Blood 06/24/2022 1:44 AM CDT 06/24/2022 1:44 AM CDT Carey East MD LAB POCT ORDERABLES - DEVICE Final Result [facility] [place] [address] * (ABNORMAL) POCT glucose (06/24/2022 1:26 AM CDT) Glucose, POC 428(H) 70 - 199 mg/dL [facility] Blood 06/24/2022 1:26 AM CDT 06/24/2022 1:26 AM CDT Carey East MD LAB POCT ORDERABLES - DEVICE Final Result Performing Organization Address [facility] de Phone Number [facility] Department [place] [address] * (ABNORMAL) POCT glucose (06/23/2022 8:49 PM CDT) Glucose, POC 306(H) 70 - 199 mg/dL [facility] Blood 06/23/2022 8:4 9 PM CDT 06/23/2022 8:49 PM CDT Carey East MD LAB POCT ORDERABLES - DEVICE Final Result Performing Organization Address [facility] de Phone Number [facility] Department [place] [address] * (ABNORMAL) POCT glucose (06/23/2022 7:45 PM CDT) Glucose, POC 284(H) 70 - 199 mg/dL [facility] Blood 06/23/2022 7:45 PM CDT 06/23/2022 7:45 PM CDT Carey East MD LAB POCT ORDERABLES - DEVICE Final Result Performing Organization Address [facility] de Phone Number [facility] [place] [address] * POCT glucose (06/23/2022 5:57 PM CDT) Glucose, POC 180 70 - 199 mg/dL [facility] Blood 06/23/2022 5:57 PM CDT 06/23/2022 5:57 PM CDT Carey East MD LAB POCT ORDERABLES - DEVICE Final Result Performing Organization Address [facility] Co de Phone Number [facility] [place] [address] * POCT glucose (06/23/2022 4:48 PM CDT) Glucose, POC 152 70 - 199 mg/dL [facility] Blood 06/23/2022 4:48 PM CDT 06/23/2022 4:48 PM CDT Carey East MD LAB POCT ORDERABLES - DEVICE Final Result Performing Organization Address [facility] de Phone Number [facility] [place] [address] * POCT glucose (06/23/2022 3:43 PM CDT) Glucose, POC 174 70 - 199 mg/dL [facility] Blood 06/23/2022 3:43 PM CDT 06/23/2022 3:43 PM CDT Carey East MD LAB POCT ORDERABLES - DEVICE Final Result Performing Organization Address [facility] de Phone Number [facility] [place] [address] * (ABNORMAL) POCT glucose (06/23/2022 3:01 PM CDT) Glucose, POC 66(L) 70 - 199 mg/dL [facility] Blood 06/23/2022 3:01 PM CDT 06/23/2022 3:01 PM CDT us Carey East MD LAB POCT ORDERABLES - DEVICE Final Result Performing Organization Address [facility] Co de Phone Number ALESSANDRA CARRION [facility] [place] [address] * (ABNORMAL) eGFR (06/23/2022 2:35 PM CDT) eGFR 7(L) 90 - 130 mL/min/1. 73 m2 [facility] Comment: Interpretive Data Reference Interval Normal [...] ORDERABLES Final Result Performing Organization Address City/[facility] Co de Phone Number ALESSANDRA CARRION [facility] [place] [address] * (ABNORMAL) Basic metabolic panel (06/23/2022 2:35 PM CDT) Pathologist [facility] Sodium 137 135 - 145 mmol/L [facility] Potassium, pl 3.6 3.3 - 4.9 mmol/L [facility] Chloride 96(L) 97 - 110 mmol/L [facility] CO2 25 22 - 32 mmol/L [facility] Anion gap 16(H) 2 - 15 mmol/L [facility] BUN 45(H) 8 - 25 mg/dL [facility] Creatinine 8.33(H) 0.80 - 1.30 mg/dL [facility] Glucose 55(L) 70 - 199 mg/dL [facility] Comment: Interpretive Data Fasting glucose >/= [...] 2017. Calcium 8.3(L) 8.5 - 10.3 mg/dL [facility] Blood 06/23/2022 2:35 PM CDT 06/23/2022 3:04 PM CDT us Carey East MD LAB BLOOD ORDERABLES Final Result [facility] [place] [address] * Differential, auto (06/23/2022 2:34 PM CDT) Pathologist [facility] Neutrophil abs 2.7 1.7 - 6.5 K/cumm [facility] Imm gran abs 0.0 0.0 - 0.1 K/cumm [facility] Lymphocyte abs 1.3 0.8 - 3.3 K/cumm [facility] Monocyte abs 0.8 0.2 - 0.8 K/cumm [facility] Eosinophil abs 0.5 0.0 - 0.5 K/cumm [facility] Basophil abs 0.0 0.0 - 0.1 K/cumm [facility] Neutrophil pct 50.3 % [facility] Comment: Interpretive Data Percent cell count reference ranges are not reported, since discordance with absolute values may lead to misinterpretation of CBC data. Current Interpretive Data was last revised on 2017. Imm gran pct 0.6 % [facility] Comment: Interpretive Data Percent cell count reference ranges are not reported, since discordance with absolute values may lead to misinterpretation of CBC data. Current Interpretive Data was last revised on 2017. Lymphocyte pct 23.7 % [facility] Comment: Interpretive Data Percent cell count reference ranges are not reported, since discordance with absolute values may lead to misinterpretation of CBC data. Current Interpretive Data was last revised on 2017. Monocyte pct 15.5 % [facility] Comment: Interpretive Data Percent cell count reference ranges are not reported, since discordance with absolute values may lead to misinterpretation of CBC data. Current Interpretive Data was last revised on 2017. Eosinophil pct 9.2 % [facility] Comment: Interpretive Data Percent cell count reference ranges are not reported, since discordance with absolute values may lead to misinterpretation of CBC data. Current Interpretive Data was last revised on 2017. Basophil pct 0.7 % [facility] Comment: Interpretive Data Percent cell count reference ranges are not reported, since discordance with absolute values may lead to misinterpretation of CBC data. Current Interpretive Data was last revised on 2017. Blood 06/23/2022 2:34 PM CDT 06/23/2022 3:14 PM CDT us Carey East MD LAB BLOOD ORDERABLES Final Result [facility] [place] [address] * (ABNORMAL) CBC with auto differential (06/23/2022 2:34 PM CDT) [facility] WBC 5.4 3.8 - 9.9 K/cumm [facility] Hgb 8.2(L) 13.0 - 17.5 g/dL [facility] Comment:Consistent with ita ent history. Hct 25.2(L) 38.9 - 50.3 % [facility] Plt 215 150 - 400 K/cumm [facility] MPV 10.2 9.1 - 12.3 fL [facility] RBC 2.71(L) 4.30 - 5.80 M/cumm [facility] MCV 93.0 81.3 - 96.4 fL [facility] MCH 30.3 27.1 - 33.3 pg [facility] MCHC 32.5 32.3 - 35.7 g/dL [facility] RDW CV 18.7(H) 11.1 - 14.9 % [facility] RDW SD 57.2(H) 35.7 - 48.1 fL [facility] NRBC abs 0.00 0.00 - 0.01 K/cumm [facility] Blood 06/23/2022 2:34 PM CDT 06/23/2022 3:14 PM CDT us Carey East MD LAB BLOOD ORDERABLES Final Result [facility] [place] [address] * (ABNORMAL) Troponin I high-sensitivity 2-hour (06/23/2022 2:34 PM CDT) [facility] Trop I hs 3,636(C) <=35 ng/L [facility] Comment: Previous critical value noted within 48 hours ago. Interpretive Data For further hscTnI resources including the diagnostic algorithm and an aid in interpretation, copy and paste this link: https://bjhlab.testcatalog.org/show/hsTrop-1 Current Interpretive Data last revised 2020. Trop I hs delta See Comment ng/L [facility] Comment:Inappropriate collec tion time to report a delta. Trop I hs pct delta See Comment % [facility]ANDRA [facility] Comment:Inappropriate collec tion time to report a delta. Trop I hs interp See Comment [facility] Comment:Inappropriate collec tion time to report a delta. Blood 06/23/2022 2:34 PM CDT 06/23/2022 3:14 PM CDT Carey East MD LAB BLOOD ORDERABLES Final Result Performing Organization Address City/[facility]/ZIP Co de Phone Number [facility] [place] [address] * (ABNORMAL) POCT glucose (06/23/2022 2:25 PM CDT) Glucose, POC 69(L) 70 - 199 mg/dL [facility] Blood 06/23/2022 2:25 PM CDT 06/23/2022 2:25 PM CDT Carey East MD LAB POCT ORDERABLES - DEVICE Final Result Performing Organization Address [facility] Co de Phone Number [facility] Department [place] [address] * Critical result callback Cardio chemistry (06/23/2022 2:01 PM CDT) Date Notified [id number] [facility] Time Notified 1454 [facility] Test name Trop I hs base [facility] Called/Read Back Fartun APARICIO [facility] Credentials RN [facility]DR[facility] Called By karen APARICIO [facility] Blood 06/23/2022 2:01 PM CDT 06/23/2022 2:16 PM CDT Carey East MD LAB BLOOD ORDERABLES Final Result Performing Organization Address City/[facility]/ZIP Co de Phone Number ALESSANDRA CARRION [facility] [place] [address] * (ABNORMAL) eGFR (06/23/2022 2:01 PM CDT) eGFR 7(L) 90 - 130 mL/min/1. 73 m2 [facility] Comment: Interpretive Data Reference Interval Normal ?>/= [...] BLOOD ORDERABLES Final Result Performing Organization Address [facility] Co de Phone Number ALESSANDRA CARRION [facility] [place] [address] * (ABNORMAL) Troponin I high-sensitivity series (baseline, 2hr, 4hr, 6hr) (06/23/2022 2:01 PM CDT) Trop I hs 3,653(C) <=35 ng/L [facility] Comment: Interpretive Data For further [facility] resources including the diagnostic algorithm and an aid in interpretation, copy and paste this link: https://bjhlab.testcatalog.org/show/hsTrop-1 Current Interpretive Data last revised 2020. Blood 06/23/2022 2:01 PM CDT 06/23/2022 2:16 PM CDT Carey East MD LAB BLOOD ORDERABLES Final Result Performing Organization Address City/[facility] Co de Phone Number [facility] Department [place] [address] * (ABNORMAL) Phosphorus (06/23/2022 2:01 PM CDT) [facility] Phosphorus, pl 5.2(H) 2.3 - 4.5 mg/dL [facility] Blood 06/23/2022 2:01 PM CDT 06/23/2022 2:16 PM CDT Carey East MD LAB BLOOD ORDERABLES Final Result Performing Organization Address City/[facility]/ZIP Co de Phone Number [facility] Department [place] [address] * (ABNORMAL) Magnesium (06/23/2022 2:01 PM CDT) Pathologist [facility] Magnesium 2.8(H) 1.4 - 2.5 mg/dL [facility] Blood 06/23/2022 2:01 PM CDT 06/23/2022 2:16 PM CDT Carey East MD LAB BLOOD ORDERABLES Final Result Performing Organization Address City/[facility]/ZIP Co de Phone Number [facility] [place] [address] * (ABNORMAL) CBC without differential (06/23/2022 2:01 PM CDT) [facility] WBC 5.9 3.8 - 9.9 K/cumm [facility] Hgb 4.6(C) 13.0 - 17.5 g/dL [facility] Comment:Critical result call ed to and read back by MOUSTAPHA RAMSAY(RN) on 06 23 2022 at 1428 to Erin Kidd. Hct 14.2(L) 38.9 - 50.3 % [facility] Plt 253 150 - 400 K/cumm [facility] MPV 10.1 9.1 - 12.3 fL [facility] RBC 1.51(L) 4.30 - 5.80 M/cumm [facility] MCV 94.0 81.3 - 96.4 fL [facility] MCH 30.5 27.1 - 33.3 pg [facility] MCHC 32.4 32.3 - 35.7 g/dL [facility] RDW CV 18.4(H) 11.1 - 14.9 % [facility] RDW SD 58.0(H) 35.7 - 48.1 fL [facility] NRBC abs 0.00 0.00 - 0.01 K/cumm [facility] Blood 06/23/2022 2:01 PM CDT 06/23/2022 2:17 PM CDT Narrative [facility] - 06/23/2022 2:29 PM CDT While on heparin infusion us Carey East MD LAB BLOOD ORDERABLES Final Result [facility] [place] [address] * (ABNORMAL) Basic metabolic panel (06/23/2022 2:01 PM CDT) [facility] Sodium 136 135 - 145 mmol/L [facility] Potassium, pl 3.4 3.3 - 4.9 mmol/L [facility] Chloride 96(L) 97 - 110 mmol/L [facility] CO2 25 22 - 32 mmol/L [facility] Anion gap 15 2 - 15 mmol/L [facility] BUN 45(H) 8 - 25 mg/dL [facility] Creatinine 8.21(H) 0.80 - 1.30 mg/dL [facility] Glucose 60(L) 70 - 199 mg/dL [facility] Comment: Interpretive Data Fasting glucose >/= [...] 2017. Calcium 8.3(L) 8.5 - 10.3 mg/dL [facility] Blood 06/23/2022 2:01 PM CDT 06/23/2022 2:16 PM CDT Carey East MD LAB BLOOD ORDERABLES Final Result Performing Organization Address [facility]/ZIP Co de Phone Number [facility] [place] [address] * POCT glucose (06/23/2022 1:42 PM CDT) Glucose, POC 79 70 - 199 mg/dL [facility] Blood 06/23/2022 1:42 PM CDT 06/23/2022 1:42 PM CDT Carey East MD LAB POCT ORDERABLES - DEVICE Final Result Performing Organization Address City/[facility]/ZIP Co de Phone Number [facility] Department [place] [address] * ECG 12 lead (06/23/2022 1:30 PM CDT) [facility] Ventricular Rate EKG/Min 100 BPM [facility] Atrial Rate 100 BPM [facility] TX-Interval (MSEC) 182 ms [facility] QRS-Interval (MSEC) 106 ms [facility] QT-Interval (MSEC) 380 ms [facility] QTc 490 ms [facility] R Esopus -47 degrees [facility] T Esopus 105 degrees [facility] Diagnosis Sinus rhythm with Premature supraventricular [...] ([id number]) on 06/23/2022 4:28:23 PM [facility] 06/23/2022 1:30 PM CDT 06/23/2022 4:28 PM CDT Carey East MD ECG ORDERABLES Ann Marie l Result [facility] * POCT glucose (06/23/2022 1:20 PM CDT) [facility] Glucose, POC 88 70 - 199 mg/dL [facility] Blood 06/23/2022 1:20 PM CDT 06/23/2022 1:20 PM CDT Carey East MD LAB POCT ORDERABLES - DEVICE Final Result [facility] [place] [address] * POCT glucose (06/23/2022 11:48 AM CDT) Glucose, POC 163 70 - 199 mg/dL [facility] Blood 06/23/2022 11:4 8 AM CDT 06/23/2022 11:48 AM CDT us Carey East MD LAB POCT ORDERABLES - DEVICE Final Result [facility] [place] [address] * (ABNORMAL) POCT glucose (06/23/2022 7:28 AM CDT) Glucose, POC 320(H) 70 - 199 mg/dL [facility] Blood 06/23/2022 7:28 AM CDT 06/23/2022 7:28 AM CDT us Catherine Adams MD LAB POCT ORDERABLES - DEVIC E Final Result Performing Organization Address City/[facility]/ZIP Co de Phone Number [facility] [place] [address] * (ABNORMAL) Magnesium (06/23/2022 4:21 AM CDT) Magnesium 2.9(H) 1.4 - 2.5 mg/dL [facility] Blood 06/23/2022 4:21 AM CDT 06/23/2022 5:58 AM CDT us Luiz Lewis DO LAB BLOOD ORDERABLES Final Res ult [facility] [place] [address] * (ABNORMAL) CBC without differential (06/23/2022 4:21 AM CDT) WBC 4.4 3.8 - 9.9 K/cumm [facility] Hgb 8.1(L) 13.0 - 17.5 g/dL [facility] Hct 25.8(L) 38.9 - 50.3 % [facility] Plt 206 150 - 400 K/cumm [facility] MPV 10.4 9.1 - 12.3 fL [facility] RBC 2.76(L) 4.30 - 5.80 M/cumm [facility] MCV 93.5 81.3 - 96.4 fL [facility] MCH 29.3 27.1 - 33.3 pg [facility] MCHC 31.4(L) 32.3 - 35.7 g/dL [facility] RDW CV 18.8(H) 11.1 - 14.9 % [facility] RDW SD 58.8(H) 35.7 - 48.1 fL [facility] NRBC abs 0.00 0.00 - 0.01 K/cumm [facility] Blood 06/23/2022 4:21 AM CDT 06/23/2022 5:58 AM CDT Narrative [facility] - 06/23/2022 6:08 AM CDT While on heparin infusion us Luiz Lewis DO LAB BLOOD ORDERABLES Final Res ult [facility] Department [place] [address] * (ABNORMAL) POCT glucose (06/23/2022 1:38 AM CDT) [facility] Glucose, POC 244(H) 70 - 199 mg/dL [facility] Blood 06/23/2022 1:38 AM CDT 06/23/2022 1:38 AM CDT us Catherine Adams MD LAB POCT ORDERABLES - DEVIC E Final Result [facility] [place] [address] * (ABNORMAL) Phosphorus (06/22/2022 9:28 PM CDT) [facility] Phosphorus, pl 5.8(H) 2.3 - 4.5 mg/dL [facility] Blood 06/22/2022 9:28 PM CDT 06/22/2022 10:27 PM CDT Catherine Adams MD LAB BLOOD ORDERABLES Final Result Performing Organization Address City/[facility]/ZIP Co de Phone Number [facility] Department [place] [address] * POCT glucose (06/22/2022 9:14 PM CDT) [facility] Glucose, POC 176 70 - 199 mg/dL [facility] Blood 06/22/2022 9:14 PM CDT 06/22/2022 9:14 PM CDT Catherine Adams MD LAB POCT ORDERABLES - DEVIC E Final Result Performing Organization Address City/[facility] Co de Phone Number [facility] Department [place] [address] * POCT glucose (06/22/2022 5:37 PM CDT) [facility] Glucose, POC 88 70 - 199 mg/dL [facility] Blood 06/22/2022 5:37 PM CDT 06/22/2022 5:37 PM CDT Catherine Adams MD LAB POCT ORDERABLES - DEVIC E Final Result Performing Organization Address City/[facility] Co de Phone Number [facility] Department [place] [address] * (ABNORMAL) eGFR (06/22/2022 3:21 PM CDT) [facility] eGFR 8(L) 90 - 130 mL/min/1. 73 m2 [facility] Comment: Interpretive Data Reference Interval Normal [...] 06/22/2022 3:52 PM CDT us Marcelina Lo APPLIANCE COUNSELOR LAB BLOOD ORDERABLES Final Re sult [facility] [place] [address] * Differential, auto (06/22/2022 3:21 PM CDT) [facility] Neutrophil abs 2.5 1.7 - 6.5 K/cumm [facility] Imm gran abs 0.0 0.0 - 0.1 K/cumm [facility] Lymphocyte abs 1.2 0.8 - 3.3 K/cumm [facility] Monocyte abs 0.8 0.2 - 0.8 K/cumm [facility] Eosinophil abs 0.5 0.0 - 0.5 K/cumm [facility] Basophil abs 0.0 0.0 - 0.1 K/cumm [facility] Neutrophil pct 51.2 % [facility] Comment: Interpretive Data Percent cell count reference ranges are not reported, since discordance with absolute values may lead to misinterpretation of CBC data. Current Interpretive Data was last revised on 2017. Imm gran pct 0.4 % [facility] Comment: Interpretive Data Percent cell count reference ranges are not reported, since discordance with absolute values may lead to misinterpretation of CBC data. Current Interpretive Data was last revised on 2017. Lymphocyte pct 23.3 % [facility] Comment: Interpretive Data Percent cell count reference ranges are not reported, since discordance with absolute values may lead to misinterpretation of CBC data. Current Interpretive Data was last revised on 2017. Monocyte pct 15.4 % [facility] Comment: Interpretive Data Percent cell count reference ranges are not reported, since discordance with absolute values may lead to misinterpretation of CBC data. Current Interpretive Data was last revised on 2017. Eosinophil pct 9.3 % [facility] Comment: Interpretive Data Percent cell count reference ranges are not reported, since discordance with absolute values may lead to misinterpretation of CBC data. Current Interpretive Data was last revised on 2017. Basophil pct 0.4 % [facility] Comment: Interpretive Data Percent cell count reference ranges are not reported, since discordance with absolute values may lead to misinterpretation of CBC data. Current Interpretive Data was last revised on 2017. Blood 06/22/2022 3:21 PM CDT 06/22/2022 3:52 PM CDT us Catherine Adams MD LAB BLOOD ORDERABLES Final Result [facility] Department [place] [address] * (ABNORMAL) CBC with auto differential (06/22/2022 3:21 PM CDT) WBC 4.9 3.8 - 9.9 K/cumm [facility] Hgb 7.8(L) 13.0 - 17.5 g/dL [facility] Hct 24.1(L) 38.9 - 50.3 % [facility] Plt 183 150 - 400 K/cumm [facility] MPV 10.2 9.1 - 12.3 fL [facility] RBC 2.54(L) 4.30 - 5.80 M/cumm [facility] MCV 94.9 81.3 - 96.4 fL [facility] MCH 30.7 27.1 - 33.3 pg [facility] MCHC 32.4 32.3 - 35.7 g/dL [facility] RDW CV 18.5(H) 11.1 - 14.9 % [facility] RDW SD 58.2(H) 35.7 - 48.1 fL [facility] NRBC abs 0.00 0.00 - 0.01 K/cumm [facility] Blood 06/22/2022 3:21 PM CDT 06/22/2022 3:52 PM CDT us Catherine Adams MD LAB BLOOD ORDERABLES Final Result [facility] [email or web address] [address] * (ABNORMAL) Magnesium (06/22/2022 3:21 PM CDT) Pathologist [facility] Magnesium 2.9(H) 1.4 - 2.5 mg/dL [facility] Blood 06/22/2022 3:21 PM CDT 06/22/2022 3:52 PM CDT us Marcelina Lo NP LAB BLOOD ORDERABLES Final Re sult [facility] Department [place] [employer] [address] * (ABNORMAL) Comprehensive metabolic panel (06/22/2022 3:21 PM CDT) Sodium 138 135 - 145 mmol/L [facility] Potassium, pl 3.7 3.3 - 4.9 mmol/L [facility] Chloride 99 97 - 110 mmol/L [facility] CO2 27 22 - 32 mmol/L [facility] Anion gap 12 2 - 15 mmol/L [facility] BUN 42(H) 8 - 25 mg/dL [facility] Creatinine 7.25(H) 0.80 - 1.30 mg/dL [facility] Glucose 103 70 - 199 mg/dL [facility] Comment: Interpretive Data Fasting glucose >/= [...] 2017. Calcium 8.6 8.5 - 10.3 mg/dL [facility] Bilirubin, total 0.4 0.1 - 1.2 mg/dL [facility] Protein, pl 6.1(L) 6.5 - 8.5 g/dL [facility] Albumin 2.9(L) 3.5 - 5.0 g/dL [facility] Alk phos 112 40 - 130 Units/L [facility] ALT 31 7 - 55 Units/L [facility] AST 41 10 - 50 Units/L [facility] Blood 06/22/2022 3:21 PM CDT 06/22/2022 3:52 PM CDT us Marcelina Lo NP LAB BLOOD ORDERABLES Final Re sult [facility] Department [place] [address] * POCT glucose (06/22/2022 11:38 AM CDT) Glucose, POC 162 70 - 199 mg/dL [facility] Blood 06/22/2022 11:3 8 AM CDT 06/22/2022 11:38 AM CDT Catherine Adams MD LAB POCT ORDERABLES - DEVIC E Final Result Performing Organization Address City/[facility] Co de Phone Number [facility] [place] [address] * POCT glucose (06/22/2022 10:46 AM CDT) Glucose, POC 197 70 - 199 mg/dL [facility] Blood 06/22/2022 10:4 6 AM CDT 06/22/2022 10:46 AM CDT Catherine Adams MD LAB POCT ORDERABLES - DEVIC E Final Result Performing Organization Address City/[facility] Co de Phone Number [facility] Department [place] [address] * (ABNORMAL) POCT glucose (06/22/2022 9:07 AM CDT) Glucose, POC 313(H) 70 - 199 mg/dL [facility] Blood 06/22/2022 9:07 AM CDT 06/22/2022 9:07 AM CDT us Catherine Adams MD LAB POCT ORDERABLES - DEVIC E Final Result Performing Organization Address City/[facility] Co de Phone Number [facility] [place] [address] * (ABNORMAL) POCT glucose (06/22/2022 7:40 AM CDT) Glucose, POC 364(H) 70 - 199 mg/dL [facility] Blood 06/22/2022 7:40 AM CDT 06/22/2022 7:40 AM CDT us Catherine Adams MD LAB POCT ORDERABLES - DEVIC E Final Result Performing Organization Address [facility] Co de Phone Number [facility] Department [place] [address] * (ABNORMAL) POCT glucose (06/22/2022 7:38 AM CDT) Glucose, POC 318(H) 70 - 199 mg/dL [facility] Blood 06/22/2022 7:38 AM CDT 06/22/2022 7:38 AM CDT us Catherine Adams MD LAB POCT ORDERABLES - DEVIC E Final Result Performing Organization Address [facility] de Phone Number [facility] Department [place] [address] * (ABNORMAL) POCT glucose (06/22/2022 5:54 AM CDT) Glucose, POC 370(H) 70 - 199 mg/dL [facility] Blood 06/22/2022 5:54 AM CDT 06/22/2022 5:54 AM CDT Catherine Adams MD LAB POCT ORDERABLES - DEVIC E Final Result Performing Organization Address City/[facility] de Phone Number [facility] [place] [address] * (ABNORMAL) eGFR (06/21/2022 9:55 PM CDT) eGFR 10(L) 90 - 130 mL/min/1. 73 m2 [facility] Comment: Interpretive Data Reference Interval Normal [...] PM CDT 06/21/2022 10:14 PM CDT us Marcleina Lo APPLIANCE COUNSELOR LAB BLOOD ORDERABLES Final Re sult [facility] [place] [address] * Differential, auto (06/21/2022 9:55 PM CDT) Neutrophil abs 3.7 1.7 - 6.5 K/cumm [facility] Imm gran abs 0.0 0.0 - 0.1 K/cumm [facility] Lymphocyte abs 1.0 0.8 - 3.3 K/cumm [facility] Monocyte abs 0.8 0.2 - 0.8 K/cumm [facility] Eosinophil abs 0.3 0.0 - 0.5 K/cumm [facility] Basophil abs 0.0 0.0 - 0.1 K/cumm [facility] Neutrophil pct 63.3 % [facility] Comment: Interpretive Data Percent cell count reference ranges are not reported, since discordance with absolute values may lead to misinterpretation of CBC data. Current Interpretive Data was last revised on 2017. Imm gran pct 0.5 % [facility] Comment: Interpretive Data Percent cell count reference ranges are not reported, since discordance with absolute values may lead to misinterpretation of CBC data. Current Interpretive Data was last revised on 2017. Lymphocyte pct 16.3 % [facility] Comment: Interpretive Data Percent cell count reference ranges are not reported, since discordance with absolute values may lead to misinterpretation of CBC data. Current Interpretive Data was last revised on 2017. Monocyte pct 14.3 % [facility] Comment: Interpretive Data Percent cell count reference ranges are not reported, since discordance with absolute values may lead to misinterpretation of CBC data. Current Interpretive Data was last revised on 2017. Eosinophil pct 5.1 % [facility] Comment: Interpretive Data Percent cell count reference ranges are not reported, since discordance with absolute values may lead to misinterpretation of CBC data. Current Interpretive Data was last revised on 2017. Basophil pct 0.5 % [facility] Comment: Interpretive Data Percent cell count reference ranges are not reported, since discordance with absolute values may lead to misinterpretation of CBC data. Current Interpretive Data was last revised on 2017. Blood 06/21/2022 9:55 PM CDT 06/21/2022 10:14 PM CDT us Catherine Adams MD LAB BLOOD ORDERABLES Final Result [facility] [place] [address] * (ABNORMAL) POCT glucose (06/21/2022 9:55 PM CDT) Glucose, POC 272(H) 70 - 199 mg/dL [facility] Blood 06/21/2022 9:55 PM CDT 06/21/2022 9:55 PM CDT Result [facility] Catherine Adams MD LAB POCT ORDERABLES - DEVIC E Final Result Performing Organization Address [facility] Co de Phone Number [facility] Department [place] [address] * (ABNORMAL) CBC with auto differential (06/21/2022 9:55 PM CDT) [facility] WBC 5.9 3.8 - 9.9 K/cumm [facility] Hgb 7.5(L) 13.0 - 17.5 g/dL [facility] Hct 23.6(L) 38.9 - 50.3 % [facility] Plt 174 150 - 400 K/cumm [facility] MPV 9.7 9.1 - 12.3 fL [facility] RBC 2.51(L) 4.30 - 5.80 M/cumm [facility] MCV 94.0 81.3 - 96.4 fL [facility] MCH 29.9 27.1 - 33.3 pg [facility] MCHC 31.8(L) 32.3 - 35.7 g/dL [facility] RDW CV 18.9(H) 11.1 - 14.9 % [facility] RDW SD 60.0(H) 35.7 - 48.1 fL [facility] NRBC abs 0.02(H) 0.00 - 0.01 K/cumm [facility] Blood 06/21/2022 9:55 PM CDT 06/21/2022 10:14 PM CDT Catherine Adams MD LAB BLOOD ORDERABLES Final Result Performing Organization Address City/[facility]/ZIP Co de Phone Number [facility] [place] [address] * Lactate (06/21/2022 9:55 PM CDT) Lactate 0.8 0.7 - 2.0 mmol/L [facility] Blood 06/21/2022 9:55 PM CDT 06/21/2022 10:14 PM CDT Catherine Adams MD LAB BLOOD ORDERABLES Final Result [facility] [place] [address] * (ABNORMAL) Triglycerides (06/21/2022 9:55 PM CDT) Triglycerides 183(H) <=149 mg/dL [facility] Comment: Interpretive Data Ages < [...] 06/21/2022 10:15 PM CDT Narrative [facility] - 06/21/2022 10:45 PM CDT While on propofol infusion. us Catherine Adams MD LAB BLOOD ORDERABLES Final Result Performing Organization Address [facility] Co de Phone Number [facility] [place] [address] * (ABNORMAL) Phosphorus (06/21/2022 9:55 PM CDT) Phosphorus, pl 4.8(H) 2.3 - 4.5 mg/dL [facility] Blood 06/21/2022 9:55 PM CDT 06/21/2022 10:15 PM CDT us Marcelina Lo APPLIANCE COUNSELOR LAB BLOOD ORDERABLES Final Re sult Performing Organization Address [facility] de Phone Number [facility] [place] [address] * (ABNORMAL) Lipase (06/21/2022 9:55 PM CDT) Lipase 227(H) 10 - 99 Units/L [facility] Blood 06/21/2022 9:55 PM CDT 06/21/2022 10:15 PM CDT Marcelina Lo APPLIANCE COUNSELOR LAB BLOOD ORDERABLES Final Re sult Performing Organization Address [facility] Co de Phone Number [facility] [place] [address] * (ABNORMAL) Magnesium (06/21/2022 9:55 PM CDT) Magnesium 2.8(H) 1.4 - 2.5 mg/dL [facility] Blood 06/21/2022 9:55 PM CDT 06/21/2022 10:14 PM CDT Marcelina Lo APPLIANCE COUNSELOR LAB BLOOD ORDERABLES Final Re sult Performing Organization Address [facility]/ZIP Co de Phone Number [facility] [place] [address] * (ABNORMAL) Comprehensive metabolic panel (06/21/2022 9:55 PM CDT) Sodium 136 135 - 145 mmol/L [facility] Potassium, pl 4.0 3.3 - 4.9 mmol/L [facility] Chloride 98 97 - 110 mmol/L [facility] CO2 24 22 - 32 mmol/L [facility] Anion gap 14 2 - 15 mmol/L [facility] BUN 41(H) 8 - 25 mg/dL [facility] Creatinine 6.03(H) 0.80 - 1.30 mg/dL [facility] Glucose 276(H) 70 - 199 mg/dL [facility] Comment: Interpretive Data Fasting glucose >/= [...] 2017. Calcium 8.4(L) 8.5 - 10.3 mg/dL [facility] Bilirubin, total 0.5 0.1 - 1.2 mg/dL [facility] Protein, pl 5.9(L) 6.5 - 8.5 g/dL [facility] Albumin 2.7(L) 3.5 - 5.0 g/dL [facility] Alk phos 111 40 - 130 Units/L [facility] ALT 32 7 - 55 Units/L [facility] AST 48 10 - 50 Units/L [facility] Blood 06/21/2022 9:55 PM CDT 06/21/2022 10:14 PM CDT us Marcelina Lo APPLIANCE COUNSELOR LAB BLOOD ORDERABLES Final Re sult [facility] [place] [address] * (ABNORMAL) Differential, auto (06/21/2022 5:23 PM [...] BJ Neutrophil pct 62.4 % [facility] Comment: Interpretive Data Percent cell count reference ranges are not reported, since discordance with absolute values may lead to misinterpretation of CBC data. Current Interpretive Data was last revised on 2017. Imm gran pct 0.8 % [facility] Comment: Interpretive Data Percent cell count reference ranges are not reported, since discordance with absolute values may lead to misinterpretation of CBC data. Current Interpretive Data was last revised on 2017. Lymphocyte pct 18.5 % [facility] Comment: Interpretive Data Percent cell count reference ranges are not reported, since discordance with absolute values may lead to misinterpretation of CBC data. Current Interpretive Data was last revised on 2017. Monocyte pct 13.7 % [facility] Comment: Interpretive Data Percent cell count reference ranges are not reported, since discordance with absolute values may lead to misinterpretation of CBC data. Current Interpretive Data was last revised on 2017. Eosinophil pct 4.0 % [facility] Comment: Interpretive Data Percent cell count reference ranges are not reported, since discordance with absolute values may lead to misinterpretation of CBC data. Current Interpretive Data was last revised on 2017. Basophil pct 0.6 % [facility] Comment: Interpretive Data Percent cell count reference ranges are not reported, since discordance with absolute values may lead to misinterpretation of CBC data. Current Interpretive Data was last revised on 2017. Blood 06/21/2022 5:23 PM CDT 06/21/2022 5:45 PM CDT Catherine Adams MD LAB BLOOD ORDERABLES Final Result Performing Organization Address [facility] Co de Phone Number [facility] Department [place] [address] * (ABNORMAL) CBC with auto differential (06/21/2022 5:23 PM CDT) Pathologist [facility] WBC 6.5 3.8 - 9.9 K/cumm [facility] Hgb 7.5(L) 13.0 - 17.5 g/dL [facility] Hct 23.0(L) 38.9 - 50.3 % [facility] Plt 177 150 - 400 K/cumm [facility] MPV 9.8 9.1 - 12.3 fL [facility] RBC 2.44(L) 4.30 - 5.80 M/cumm [facility] MCV 94.3 81.3 - 96.4 fL [facility] MCH 30.7 27.1 - 33.3 pg [facility] MCHC 32.6 32.3 - 35.7 g/dL [facility] RDW CV 19.0(H) 11.1 - 14.9 % [facility] RDW SD 60.9(H) 35.7 - 48.1 fL [facility] NRBC abs 0.00 0.00 - 0.01 K/cumm [facility] Blood 06/21/2022 5:23 PM CDT 06/21/2022 5:45 PM CDT Catherine Adams MD LAB BLOOD ORDERABLES Final Result Performing Organization Address City/[facility]/ZIP Co de Phone Number [facility] [place] [address] * POCT glucose (06/21/2022 4:08 PM CDT) Glucose, POC 138 70 - 199 mg/dL [facility] Blood 06/21/2022 4:08 PM CDT 06/21/2022 4:08 PM CDT us Catherine Adams MD LAB POCT ORDERABLES - DEVIC E Final Result [facility] [place] [address] * [place] Modified Barium Swallow W Video [...] MD IMG FLUOROSCOPY PROCEDURES Final Result * INSTRUCTIONAL TECHNOLOGY SPECIALIST Evaluate and Treat (VFSS) (06/21/2022 2:02 PM [...] reported General Information Adelia Garvin Jr. 06/21/22 INSTRUCTIONAL TECHNOLOGY SPECIALIST Received On: 06/21/22 General Observations: presents alert, [...] Administered: Thin liquids (via spoon & straw), [place] thickened liquids (via spoon & straw), Purees, Honey thickened liquids via spoon, Solids. Patient took large sips requiring more than 1 swallow even when cued for small sip. Administered consistencies contain barium product. Thin Liquids: Laryngeal Penetration: Present Aspiration Present: No Penetration Aspiration Scale-Thin: 4-Material enters the airway, contacts the vocal folds and is ejected from the airway [place] Thickened Liquids: Laryngeal Penetration: Present Aspiration Present: No Penetration Aspiration Scale-[place]: 2-Material enters the airway, remains above the [...] treatment goals and details, if indicated. Plan INSTRUCTIONAL TECHNOLOGY SPECIALIST Frequency of Services: 2-3x/wk INSTRUCTIONAL TECHNOLOGY SPECIALIST Recommendation (Add'l Services): Inpatient Rehab Facility Next Visit Plan: treatment/therapy Additional Referrals: none at this time Discharge Summary Statement If this is the last swallow therapy visit, this serves as the discharge summary. us Catherine Adams MD INSTRUCTIONAL TECHNOLOGY SPECIALIST ORDERABLES Final Resul t * POCT glucose (06/21/2022 12:00 PM CDT) Glucose, POC 157 70 - 199 mg/dL [facility] Blood 06/21/2022 12:0 0 PM CDT 06/21/2022 12:00 PM CDT us Catherine Adams MD LAB POCT ORDERABLES - DEVIC E Final Result Performing Organization Address City/State/[facility] Co de Phone Number [facility] [place] [address] * (ABNORMAL) eGFR (06/21/2022 8:38 AM CDT) eGFR 12(L) 90 - 130 mL/min/1. 73 m2 [facility] Comment: Interpretive Data Reference Interval Normal [...] NP LAB BLOOD ORDERABLES Final Re sult [facility] [place] [address] * Differential, auto (06/21/2022 8:38 AM CDT) Neutrophil abs 3.3 1.7 - 6.5 K/cumm [facility] Imm gran abs 0.0 0.0 - 0.1 K/cumm [facility] Lymphocyte abs 1.2 0.8 - 3.3 K/cumm [facility] Monocyte abs 0.7 0.2 - 0.8 K/cumm [facility] Eosinophil abs 0.1 0.0 - 0.5 K/cumm [facility] Basophil abs 0.1 0.0 - 0.1 K/cumm [facility] Neutrophil pct 60.8 % [facility] Comment: Interpretive Data Percent cell count reference ranges are not reported, since discordance with absolute values may lead to misinterpretation of CBC data. Current Interpretive Data was last revised on 2017. Imm gran pct 0.7 % [facility] Comment: Interpretive Data Percent cell count reference ranges are not reported, since discordance with absolute values may lead to misinterpretation of CBC data. Current Interpretive Data was last revised on 2017. Lymphocyte pct 22.0 % [facility] Comment: Interpretive Data Percent cell count reference ranges are not reported, since discordance with absolute values may lead to misinterpretation of CBC data. Current Interpretive Data was last revised on 2017. Monocyte pct 13.7 % [facility] Comment: Interpretive Data Percent cell count reference ranges are not reported, since discordance with absolute values may lead to misinterpretation of CBC data. Current Interpretive Data was last revised on 2017. Eosinophil pct 1.9 % [facility] Comment: Interpretive Data Percent cell count reference ranges are not reported, since discordance with absolute values may lead to misinterpretation of CBC data. Current Interpretive Data was last revised on 2017. Basophil pct 0.9 % [facility] Comment: Interpretive Data Percent cell count reference ranges are not reported, since discordance with absolute values may lead to misinterpretation of CBC data. Current Interpretive Data was last revised on 2017. Blood 06/21/2022 8:38 AM CDT 06/21/2022 9:10 AM CDT Catherine Adams MD LAB BLOOD ORDERABLES Final Result Performing Organization Address City/[facility]/ZIP Co de Phone Number [facility] [place] [address] * (ABNORMAL) CBC with auto differential (06/21/2022 8:38 AM CDT) [facility] WBC 5.4 3.8 - 9.9 K/cumm [facility] Hgb 9.0(L) 13.0 - 17.5 g/dL [facility] Hct 27.8(L) 38.9 - 50.3 % [facility] Plt 171 150 - 400 K/cumm [facility] MPV 9.8 9.1 - 12.3 fL [facility] RBC 3.01(L) 4.30 - 5.80 M/cumm [facility] MCV 92.4 81.3 - 96.4 fL [facility] MCH 29.9 27.1 - 33.3 pg [facility] MCHC 32.4 32.3 - 35.7 g/dL [facility] RDW CV 19.9(H) 11.1 - 14.9 % [facility] RDW SD 63.2(H) 35.7 - 48.1 fL [facility] NRBC abs 0.02(H) 0.00 - 0.01 K/cumm [facility] Blood 06/21/2022 8:38 AM CDT 06/21/2022 9:10 AM CDT Catherine Adams MD LAB BLOOD ORDERABLES Final Result Performing Organization Address City/[facility]/ZIP Co de Phone Number [facility] [place] [address] * (ABNORMAL) Magnesium (06/21/2022 8:38 AM CDT) Magnesium 2.8(H) 1.4 - 2.5 mg/dL [facility] Blood 06/21/2022 8:38 AM CDT 06/21/2022 9:10 AM CDT us Marcelina Lo APPLIANCE COUNSELOR LAB BLOOD ORDERABLES Final Re sult [facility] [place] [address] * (ABNORMAL) Comprehensive metabolic panel (06/21/2022 8:38 AM CDT) Sodium 139 135 - 145 mmol/L [facility] Potassium, pl 4.0 3.3 - 4.9 mmol/L [facility] Chloride 101 97 - 110 mmol/L [facility] CO2 27 22 - 32 mmol/L [facility] Anion gap 11 2 - 15 mmol/L [facility] BUN 36(H) 8 - 25 mg/dL [facility] Creatinine 5.26(H) 0.80 - 1.30 mg/dL [facility] Glucose 199 70 - 199 mg/dL [facility] Comment: Interpretive Data Fasting glucose >/= [...] 2017. Calcium 8.4(L) 8.5 - 10.3 mg/dL [facility] Bilirubin, total 0.4 0.1 - 1.2 mg/dL [facility] Protein, pl 5.6(L) 6.5 - 8.5 g/dL [facility] Albumin 2.7(L) 3.5 - 5.0 g/dL [facility] Alk phos 115 40 - 130 Units/L [facility] ALT 28 7 - 55 Units/L [facility] AST 52(H) 10 - 50 Units/L [facility] Blood 06/21/2022 8:38 AM CDT 06/21/2022 9:10 AM CDT us Marcelina Lo APPLIANCE COUNSELOR LAB BLOOD ORDERABLES Final Re sult [facility] [place] [address] * POCT glucose (06/21/2022 8:34 AM CDT) Glucose, POC 199 70 - 199 mg/dL [facility] Blood 06/21/2022 8:34 AM CDT 06/21/2022 8:34 AM CDT us Catherine Adams MD LAB POCT ORDERABLES - DEVIC E Final Result Performing Organization Address [facility] Co de Phone Number [facility] [place] [address] * (ABNORMAL) POCT glucose (06/21/2022 5:30 AM CDT) Glucose, POC 270(H) 70 - 199 mg/dL [facility] Blood 06/21/2022 5:30 AM CDT 06/21/2022 5:30 AM CDT us Catherine Adams MD LAB POCT ORDERABLES - DEVIC E Final Result Performing Organization Address [facility] Co de Phone Number [facility] [place] [address] * (ABNORMAL) POCT glucose (06/21/2022 12:22 AM CDT) Glucose, POC 231(H) 70 - 199 mg/dL [facility] Blood 06/21/2022 12:2 2 AM CDT 06/21/2022 12:22 AM CDT Catherine Adams MD LAB POCT ORDERABLES - DEVIC E Final Result [facility] [place] [address] * Differential, auto (06/21/2022 12:21 AM CDT) Pathologist [facility] Neutrophil abs 4.4 1.7 - 6.5 K/cumm [facility] Imm gran abs 0.1 0.0 - 0.1 K/cumm [facility] Lymphocyte abs 1.2 0.8 - 3.3 K/cumm [facility] Monocyte abs 0.8 0.2 - 0.8 K/cumm [facility] Eosinophil abs 0.1 0.0 - 0.5 K/cumm [facility] Basophil abs 0.0 0.0 - 0.1 K/cumm [facility] Neutrophil pct 67.5 % [facility] Comment: Interpretive Data Percent cell count reference ranges are not reported, since discordance with absolute values may lead to misinterpretation of CBC data. Current Interpretive Data was last revised on 2017. Imm gran pct 0.9 % [facility] Comment: Interpretive Data Percent cell count reference ranges are not reported, since discordance with absolute values may lead to misinterpretation of CBC data. Current Interpretive Data was last revised on 2017. Lymphocyte pct 18.3 % [facility] Comment: Interpretive Data Percent cell count reference ranges are not reported, since discordance with absolute values may lead to misinterpretation of CBC data. Current Interpretive Data was last revised on 2017. Monocyte pct 11.7 % [facility] Comment: Interpretive Data Percent cell count reference ranges are not reported, since discordance with absolute values may lead to misinterpretation of CBC data. Current Interpretive Data was last revised on 2017. Eosinophil pct 1.1 % [facility] Comment: Interpretive Data Percent cell count reference ranges are not reported, since discordance with absolute values may lead to misinterpretation of CBC data. Current Interpretive Data was last revised on 2017. Basophil pct 0.5 % [facility] Comment: Interpretive Data Percent cell count reference ranges are not reported, since discordance with absolute values may lead to misinterpretation of CBC data. Current Interpretive Data was last revised on 2017. Blood 06/21/2022 12:2 1 AM CDT 06/21/2022 12:50 AM CDT us Catherine Adams MD LAB BLOOD ORDERABLES Final Result [facility] [place] [address] * (ABNORMAL) CBC with auto differential (06/21/2022 12:21 AM CDT) Pathologist [facility] WBC 6.5 3.8 - 9.9 K/cumm [facility] Hgb 7.4(L) 13.0 - 17.5 g/dL [facility] Hct 23.6(L) 38.9 - 50.3 % [facility] Plt 179 150 - 400 K/cumm [facility] MPV 9.8 9.1 - 12.3 fL [facility] RBC 2.49(L) 4.30 - 5.80 M/cumm [facility] MCV 94.8 81.3 - 96.4 fL [facility] MCH 29.7 27.1 - 33.3 pg [facility] MCHC 31.4(L) 32.3 - 35.7 g/dL [facility] RDW CV 20.0(H) 11.1 - 14.9 % [facility] RDW SD 66.2(H) 35.7 - 48.1 fL [facility] NRBC abs 0.04(H) 0.00 - 0.01 K/cumm [facility] Blood 06/21/2022 12:2 1 AM CDT 06/21/2022 12:50 AM CDT Catherine Adams MD LAB BLOOD ORDERABLES Final Result Performing Organization Address City/[facility] Co de Phone Number [facility] Department [place] [address] * POCT glucose (06/20/2022 7:49 PM CDT) Pathologist [facility] Glucose, POC 177 70 - 199 mg/dL [facility] Blood 06/20/2022 7:49 PM CDT 06/20/2022 7:49 PM CDT Catherine Adams MD LAB POCT ORDERABLES - DEVIC E Final Result Performing Organization Address [facility] de Phone Number [facility] [place] [address] * (ABNORMAL) eGFR (06/20/2022 7:46 PM CDT) eGFR 18(L) 90 - 130 mL/min/1. 73 m2 [facility] Comment: Interpretive Data Reference Interval Normal [...] 06/20/2022 8:15 PM CDT us Marcelina Lo APPLIANCE COUNSELOR LAB BLOOD ORDERABLES Final Re sult Performing Organization Address [facility] Co de Phone Number [facility] [place] [address] * Lactate (06/20/2022 7:46 PM CDT) Lactate 1.0 0.7 - 2.0 mmol/L [facility] Blood 06/20/2022 7:46 PM CDT 06/20/2022 8:14 PM CDT Catherine Adams MD LAB BLOOD ORDERABLES Final Result Performing Organization Address [facility] de Phone Number [facility] [place] [address] * (ABNORMAL) Triglycerides (06/20/2022 7:46 PM CDT) Triglycerides 181(H) <=149 mg/dL [facility] Comment: Interpretive Data Ages < [...] PM CDT 06/20/2022 8:14 PM CDT Narrative [facility] - 06/20/2022 8:51 PM CDT While on propofol infusion. us Catherine Adams MD LAB BLOOD ORDERABLES Final Result Performing Organization Address [facility] de Phone Number [facility] [place] [address] * Phosphorus (06/20/2022 7:46 PM CDT) Phosphorus, pl 2.9 2.3 - 4.5 mg/dL [facility] Comment:Repeated and Verifie d Blood 06/20/2022 7:46 PM CDT 06/20/2022 8:14 PM CDT us Marcelina Lo NP LAB BLOOD ORDERABLES Final Re sult Performing Organization Address [facility] Co de Phone Number [facility] Department [place] [address] * (ABNORMAL) Beta-hydroxybutyrate (06/20/2022 7:46 PM CDT) Beta-Hydroxybut yrate 2.5(H) 0.0 - 0.5 mmol/L [facility] Blood 06/20/2022 7:46 PM CDT 06/20/2022 8:59 PM CDT Marcelina Lo APPLIANCE COUNSELOR LAB BLOOD ORDERABLES Final Re sult Performing Organization Address City/[facility] Co de Phone Number [facility] [place] [address] * Lipase (06/20/2022 7:46 PM CDT) Pathologist [facility] Lipase 88 10 - 99 Units/L [facility] Blood 06/20/2022 7:46 PM CDT 06/20/2022 8:14 PM CDT Marcelina Lo APPLIANCE COUNSELOR LAB BLOOD ORDERABLES Final Re sult Performing Organization Address [facility] Co de Phone Number [facility] [place] [address] * (ABNORMAL) Magnesium (06/20/2022 7:46 PM CDT) [facility] Magnesium 2.6(H) 1.4 - 2.5 mg/dL [facility] Blood 06/20/2022 7:46 PM CDT 06/20/2022 8:15 PM CDT Marcelina Lo APPLIANCE COUNSELOR LAB BLOOD ORDERABLES Final Re sult Performing Organization Address [facility] Co de Phone Number [facility] [place] [address] * (ABNORMAL) Comprehensive metabolic panel (06/20/2022 7:46 PM CDT) [facility] Sodium 137 135 - 145 mmol/L [facility] Potassium, pl 4.9 3.3 - 4.9 mmol/L [facility] Chloride 102 97 - 110 mmol/L [facility] CO2 23 22 - 32 mmol/L [facility] Anion gap 12 2 - 15 mmol/L [facility] BUN 26(H) 8 - 25 mg/dL [facility] Creatinine 3.87(H) 0.80 - 1.30 mg/dL [facility] Glucose 188 70 - 199 mg/dL [facility] Comment: Interpretive Data Fasting glucose >/= [...] 2017. Calcium 8.5 8.5 - 10.3 mg/dL [facility] Bilirubin, total 0.6 0.1 - 1.2 mg/dL [facility] Protein, pl 5.7(L) 6.5 - 8.5 g/dL [facility] Albumin 2.7(L) 3.5 - 5.0 g/dL [facility] Alk phos 123 40 - 130 Units/L [facility] ALT 29 7 - 55 Units/L [facility] AST 61(H) 10 - 50 Units/L [facility] Blood 06/20/2022 7:46 PM CDT 06/20/2022 8:15 PM CDT us Marcelina Lo APPLIANCE COUNSELOR LAB BLOOD ORDERABLES Final Re sult [facility] [place] [address] * (ABNORMAL) Differential, auto (06/20/2022 6:18 PM CDT) Neutrophil abs 6.2 1.7 - 6.5 K/cumm [facility] Imm gran abs 0.1 0.0 - 0.1 K/cumm [facility] Lymphocyte abs 0.9 0.8 - 3.3 K/cumm [facility] Monocyte abs 1.1(H) 0.2 - 0.8 K/cumm [facility] Eosinophil abs 0.0 0.0 - 0.5 K/cumm [facility] Basophil abs 0.0 0.0 - 0.1 K/cumm [facility] Neutrophil pct 74.5 % [facility] Comment: Interpretive Data Percent cell count reference ranges are not reported, since discordance with absolute values may lead to misinterpretation of CBC data. Current Interpretive Data was last revised on 2017. Imm gran pct 0.7 % [facility] Comment: Interpretive Data Percent cell count reference ranges are not reported, since discordance with absolute values may lead to misinterpretation of CBC data. Current Interpretive Data was last revised on 2017. Lymphocyte pct 11.0 % [facility] Comment: Interpretive Data Percent cell count reference ranges are not reported, since discordance with absolute values may lead to misinterpretation of CBC data. Current Interpretive Data was last revised on 2017. Monocyte pct 12.8 % [facility] Comment: Interpretive Data Percent cell count reference ranges are not reported, since discordance with absolute values may lead to misinterpretation of CBC data. Current Interpretive Data was last revised on 2017. Eosinophil pct 0.5 % [facility] Comment: Interpretive Data Percent cell count reference ranges are not reported, since discordance with absolute values may lead to misinterpretation of CBC data. Current Interpretive Data was last revised on 2017. Basophil pct 0.5 % [facility] Comment: Interpretive Data Percent cell count reference ranges are not reported, since discordance with absolute values may lead to misinterpretation of CBC data. Current Interpretive Data was last revised on 2017. Blood 06/20/2022 6:18 PM CDT 06/20/2022 7:08 PM CDT us Tyra De La Torre MD LAB BLOOD ORDERABLES Final Resu lt [facility] [place] [address] * (ABNORMAL) CBC with auto differential (06/20/2022 6:18 PM CDT) WBC 8.3 3.8 - 9.9 K/cumm [facility] Hgb 7.7(L) 13.0 - 17.5 g/dL [facility] Hct 23.7(L) 38.9 - 50.3 % [facility] Plt 188 150 - 400 K/cumm [facility] MPV 9.8 9.1 - 12.3 fL [facility] RBC 2.55(L) 4.30 - 5.80 M/cumm [facility] MCV 92.9 81.3 - 96.4 fL [facility] MCH 30.2 27.1 - 33.3 pg [facility] MCHC 32.5 32.3 - 35.7 g/dL [facility] RDW CV 20.1(H) 11.1 - 14.9 % [facility] RDW SD 64.8(H) 35.7 - 48.1 fL [facility] NRBC abs 0.04(H) 0.00 - 0.01 K/cumm [facility] Blood 06/20/2022 6:18 PM CDT 06/20/2022 7:08 PM CDT us Tyra De La Torre MD LAB BLOOD ORDERABLES Final Resu lt [facility] [place] [address] * POCT glucose (06/20/2022 3:53 PM CDT) [facility] Signature Glucose, POC 124 70 - 199 mg/dL [facility] Blood 06/20/2022 3:5 3 PM CDT 06/20/2022 3:53 PM CDT us Catherine Adams MD LAB POCT ORDERABLES - DEVIC E Final Result [facility] [place] [address] * (ABNORMAL) Differential, auto (06/20/2022 3:22 PM CDT) Neutrophil abs 4.7 1.7 - 6.5 K/cumm [facility] Imm gran abs 0.1 0.0 - 0.1 K/cumm [facility] Lymphocyte abs 1.4 0.8 - 3.3 K/cumm [facility] Monocyte abs 1.0(H) 0.2 - 0.8 K/cumm [facility] Eosinophil abs 0.0 0.0 - 0.5 K/cumm [facility] Basophil abs 0.1 0.0 - 0.1 K/cumm [facility] Neutrophil pct 64.5 % [facility] Comment: Interpretive Data Percent cell count reference ranges are not reported, since discordance with absolute values may lead to misinterpretation of CBC data. Current Interpretive Data was last revised on 2017. Imm gran pct 0.7 % [facility] Comment: Interpretive Data Percent cell count reference ranges are not reported, since discordance with absolute values may lead to misinterpretation of CBC data. Current Interpretive Data was last revised on 2017. Lymphocyte pct 19.4 % [facility] Comment: Interpretive Data Percent cell count reference ranges are not reported, since discordance with absolute values may lead to misinterpretation of CBC data. Current Interpretive Data was last revised on 2017. Monocyte pct 14.1 % [facility] Comment: Interpretive Data Percent cell count reference ranges are not reported, since discordance with absolute values may lead to misinterpretation of CBC data. Current Interpretive Data was last revised on 2017. Eosinophil pct 0.6 % [facility] Comment: Interpretive Data Percent cell count reference ranges are not reported, since discordance with absolute values may lead to misinterpretation of CBC data. Current Interpretive Data was last revised on 2017. Basophil pct 0.7 % [facility] Comment: Interpretive Data Percent cell count reference ranges are not reported, since discordance with absolute values may lead to misinterpretation of CBC data. Current Interpretive Data was last revised on 2017. Blood 06/20/2022 3:22 PM CDT 06/20/2022 3:55 PM CDT Catherine Adams MD LAB BLOOD ORDERABLES Final Result [facility] [place] [address] * (ABNORMAL) CBC with auto differential (06/20/2022 3:22 PM CDT) WBC 7.2 3.8 - 9.9 K/cumm [facility] Hgb 8.0(L) 13.0 - 17.5 g/dL [facility] Hct 24.5(L) 38.9 - 50.3 % [facility] Plt 207 150 - 400 K/cumm [facility] MPV 9.8 9.1 - 12.3 fL [facility] RBC 2.67(L) 4.30 - 5.80 M/cumm [facility] MCV 91.8 81.3 - 96.4 fL [facility] Comment:MCV delta due to zoie arent blood transfusion. MCH 30.0 27.1 - 33.3 pg [facility] MCHC 32.7 32.3 - 35.7 g/dL [facility] RDW CV 19.9(H) 11.1 - 14.9 % [facility] RDW SD 63.6(H) 35.7 - 48.1 fL [facility] NRBC abs 0.03(H) 0.00 - 0.01 K/cumm [facility] Blood 06/20/2022 3:22 PM CDT 06/20/2022 3:55 PM CDT Catherine Adams MD LAB BLOOD ORDERABLES Final Result [facility] [place] [address] * CT Chest Abdomen Pelvis WO Contrast [...] ORDERABLE S Final Result Performing Organization Address [facility] Co de Phone Number [facility] [place] [address] * Transfuse RBC: 1 Units (06/20/2022 12:05 PM CDT) Blood us Catherine Adams MD BLOOD TRANSFUSION ORDERABLE S Final Result * Prepare RBC: 1 Units (06/20/2022 9:35 AM CDT) Product code [id number] [facility] Unit Number [id number] 3-* [facility] Product Blood Type APOS [facility] Dispense Status RETURNED [facility] Blood 06/20/2022 9:35 AM CDT 06/20/2022 9:34 AM CDT Narrative [facility] - 06/20/2022 1:20 PM CDT Are special requirements needed? (All products are leukoreduced and CMV- safe)- >No Date required:-[id number] LRRBC # of [id number] Reasons:-Hgb <7 g/dL} us Catherine Adams MD BLOOD BANK PRODUCT ORDERABL ES Final Result Performing Organization Address [facility] Co de Phone Number [facility] Department [place] [address] * (ABNORMAL) eGFR (06/20/2022 8:24 AM CDT) Pathologist [facility] eGFR 21(L) 90 - 130 mL/min/1. [...] 06/20/2022 8:48 AM CDT us Marcelina Lo APPLIANCE COUNSELOR LAB BLOOD ORDERABLES Final Re sult [facility] [place] [address] * (ABNORMAL) Differential, auto (06/20/2022 8:24 AM CDT) [facility] Neutrophil abs 5.1 1.7 - 6.5 K/cumm [facility] Imm gran abs 0.1 0.0 - 0.1 K/cumm [facility] Lymphocyte abs 1.6 0.8 - 3.3 K/cumm [facility] Monocyte abs 1.3(H) 0.2 - 0.8 K/cumm [facility] Eosinophil abs 0.1 0.0 - 0.5 K/cumm [facility] Basophil abs 0.1 0.0 - 0.1 K/cumm [facility] Neutrophil pct 62.3 % [facility] Comment: Interpretive Data Percent cell count reference ranges are not reported, since discordance with absolute values may lead to misinterpretation of CBC data. Current Interpretive Data was last revised on 2017. Imm gran pct 0.7 % [facility] Comment: Interpretive Data Percent cell count reference ranges are not reported, since discordance with absolute values may lead to misinterpretation of CBC data. Current Interpretive Data was last revised on 2017. Lymphocyte pct 19.9 % [facility] Comment: Interpretive Data Percent cell count reference ranges are not reported, since discordance with absolute values may lead to misinterpretation of CBC data. Current Interpretive Data was last revised on 2017. Monocyte pct 15.9 % [facility] Comment: Interpretive Data Percent cell count reference ranges are not reported, since discordance with absolute values may lead to misinterpretation of CBC data. Current Interpretive Data was last revised on 2017. Eosinophil pct 0.6 % [facility] Comment: Interpretive Data Percent cell count reference ranges are not reported, since discordance with absolute values may lead to misinterpretation of CBC data. Current Interpretive Data was last revised on 2017. Basophil pct 0.6 % [facility] Comment: Interpretive Data Percent cell count reference ranges are not reported, since discordance with absolute values may lead to misinterpretation of CBC data. Current Interpretive Data was last revised on 2017. Blood 06/20/2022 8:24 AM CDT 06/20/2022 8:48 AM CDT Catherine Adams MD LAB BLOOD ORDERABLES Final Result [facility] [place] [address] * (ABNORMAL) CBC with auto differential (06/20/2022 8:24 AM CDT) WBC 8.3 3.8 - 9.9 K/cumm [facility] Hgb 6.6(L) 13.0 - 17.5 g/dL [facility] Hct 20.7(L) 38.9 - 50.3 % [facility] Plt 271 150 - 400 K/cumm [facility] MPV 9.6 9.1 - 12.3 fL [facility] RBC 2.12(L) 4.30 - 5.80 M/cumm [facility] MCV 97.6(H) 81.3 - 96.4 fL [facility] MCH 31.1 27.1 - 33.3 pg [facility] MCHC 31.9(L) 32.3 - 35.7 g/dL [facility] RDW CV 17.4(H) 11.1 - 14.9 % [facility] RDW SD 59.6(H) 35.7 - 48.1 fL [facility] NRBC abs 0.00 0.00 - 0.01 K/cumm [facility] Blood 06/20/2022 8:24 AM CDT 06/20/2022 8:48 AM CDT Catherine Adams MD LAB BLOOD ORDERABLES Final Result [facility] [place] [address] * (ABNORMAL) Magnesium (06/20/2022 8:24 AM CDT) Magnesium 2.7(H) 1.4 - 2.5 mg/dL [facility] Blood 06/20/2022 8:24 AM CDT 06/20/2022 8:48 AM CDT us Marcelina Lo NP LAB BLOOD ORDERABLES Final Re sult [facility] [place] [address] * (ABNORMAL) Comprehensive metabolic panel (06/20/2022 8:24 AM CDT) Sodium 140 135 - 145 mmol/L [facility] Potassium, pl 4.9 3.3 - 4.9 mmol/L [facility] Chloride 104 97 - 110 mmol/L [facility] CO2 25 22 - 32 mmol/L [facility] Anion gap 11 2 - 15 mmol/L [facility] BUN 25 8 - 25 mg/dL [facility] Creatinine 3.43(H) 0.80 - 1.30 mg/dL [facility] Glucose 144 70 - 199 mg/dL [facility] Comment: Interpretive Data Fasting glucose >/= [...] 2017. Calcium 8.4(L) 8.5 - 10.3 mg/dL [facility] Bilirubin, total 0.6 0.1 - 1.2 mg/dL [facility] Protein, pl 6.2(L) 6.5 - 8.5 g/dL [facility] Albumin 2.8(L) 3.5 - 5.0 g/dL [facility] Alk phos 143(H) 40 - 130 Units/L [facility] ALT 35 7 - 55 Units/L [facility] AST 79(H) 10 - 50 Units/L [facility] Blood 06/20/2022 8:24 AM CDT 06/20/2022 8:48 AM CDT us Marcelina Lo APPLIANCE COUNSELOR LAB BLOOD ORDERABLES Final Re sult Performing Organization Address [facility] Co de Phone Number [facility] [place] [address] * POCT glucose (06/20/2022 8:21 AM CDT) Glucose, POC 152 70 - 199 mg/dL [facility] Blood 06/20/2022 8:21 AM CDT 06/20/2022 8:21 AM CDT Catherine Adams MD LAB POCT ORDERABLES - DEVIC E Final Result Performing Organization Address [facility] de Phone Number [facility] [place] [address] * Transfuse RBC (06/20/2022 6:12 AM CDT) Blood Catherine Adams MD BLOOD TRANSFUSION ORDERABLE S Final Result Performing Organization Address [facility] de Phone Number [facility] [place] [address] * Transfuse RBC: 1 Units (06/20/2022 6:12 AM CDT) Blood Catherine Adams MD BLOOD TRANSFUSION ORDERABLE S Final Result * POCT glucose (06/20/2022 4:57 AM CDT) Glucose, POC 174 70 - 199 mg/dL [facility] Blood 06/20/2022 4:57 AM CDT 06/20/2022 4:57 AM CDT us Catherine Adams MD LAB POCT ORDERABLES - DEVIC E Final Result Performing Organization Address City/[facility]/ZIP Co de Phone Number [facility] [place] [address] * (ABNORMAL) Hemoglobin and hematocrit (06/20/2022 12:25 AM CDT) Pathologist [facility] Hgb 6.2(C) 13.0 - 17.5 g/dL [facility] Comment:Consistent with prev ious results Hct 19.8(L) 38.9 - 50.3 % [facility] Blood 06/20/2022 12:2 5 AM CDT 06/20/2022 12:37 AM CDT Meme Castro MD LAB BLOOD ORDERABLES Final Result Performing Organization Address [facility] Co de Phone Number [facility] Department [place] [address] * Type and screen (06/20/2022 12:23 AM CDT) [facility] Maribel, indirect Negative [facility] ABO Rh A Positive [facility] Blood 06/20/2022 12:2 3 AM CDT 06/20/2022 1:33 AM CDT Narrative [facility] - 06/20/2022 3:08 AM CDT Has the patient had Daratumumab or Isatuximab in the past 6 months?->Unknown Catherine Adams MD LAB BLOOD BANK TEST ORDERAB LES Final Result Performing Organization Address [facility]/ZIP Co de Phone Number [facility] Department [place] [address] * Prepare RBC: 1 Units (06/20/2022 12:15 AM CDT) [facility] Product code [id number] [facility] Unit Number [id number] [facility] Product Blood Type APOS [facility] Dispense Status PRESUMED TRANSFUSED [facility] Blood 06/20/2022 12:1 5 AM CDT 06/20/2022 12:16 AM CDT Narrative [facility] - 06/21/2022 12:50 AM CDT Are special requirements needed? (All products are leukoreduced and CMV- safe)- >No Date required:-[id number] LRRBC # of [id number] Reasons:-Hgb <7 g/dL} Catherine Adams MD BLOOD BANK PRODUCT ORDERABL ES Final Result Performing Organization Address [facility] de Phone Number [facility] Department [place] [address] * (ABNORMAL) POCT glucose (06/20/2022 12:01 AM CDT) Glucose, POC 206(H) 70 - 199 mg/dL [facility] Blood 06/20/2022 12:0 1 AM CDT 06/20/2022 12:01 AM CDT Result [facility] Catherine Adams MD LAB POCT ORDERABLES - DEVIC E Final Result Performing Organization Address [facility] de Phone Number [facility] Department [place] [address] * (ABNORMAL) Hemoglobin and hematocrit (06/19/2022 11:25 PM CDT) Hgb 6.2(C) 13.0 - 17.5 g/dL [facility] Comment:Critical result call ed to and read back by WON SHELBY RN on 06 20 2022 at 0010 to Precious Restrepo. Hct 19.5(L) 38.9 - 50.3 % [facility] Blood 06/19/2022 11:2 5 PM CDT 06/19/2022 11:42 PM CDT Meme Castro MD LAB BLOOD ORDERABLES Final Result Performing Organization Address [facility]/ZIP Co de Phone Number [facility] Department [place] [address] * POCT glucose (06/19/2022 8:55 PM CDT) [facility] Glucose, POC 161 70 - 199 mg/dL [facility] Blood 06/19/2022 8:55 PM CDT 06/19/2022 8:55 PM CDT us Catherine Adams MD LAB POCT ORDERABLES - DEVIC E Final Result Performing Organization Address [facility] de Phone Number [facility] Department [place] [address] * (ABNORMAL) eGFR (06/19/2022 8:54 PM CDT) [facility] eGFR 16(L) 90 - 130 mL/min/1. 73 m2 [facility] Comment: Interpretive Data Reference Interval Normal [...] 06/19/2022 9:22 PM CDT us Marcelina Lo APPLIANCE COUNSELOR LAB BLOOD ORDERABLES Final Re sult [facility] Department [place] [address] * (ABNORMAL) Differential, auto (06/19/2022 8:54 PM CDT) Neutrophil abs 5.0 1.7 - 6.5 K/cumm [facility] Imm gran abs 0.1 0.0 - 0.1 K/cumm [facility] Lymphocyte abs 2.1 0.8 - 3.3 K/[facility] Monocyte abs 1.2(H) 0.2 - 0.8 K/cumm [facility] Eosinophil abs 0.1 0.0 - 0.5 K/cumm [facility] Basophil abs 0.1 0.0 - 0.1 K/cumm [facility] Neutrophil pct 59.1 % [facility] Comment: Interpretive Data Percent cell count reference ranges are not reported, since discordance with absolute values may lead to misinterpretation of CBC data. Current Interpretive Data was last revised on 2017. Imm gran pct 0.7 % [facility] Comment: Interpretive Data Percent cell count reference ranges are not reported, since discordance with absolute values may lead to misinterpretation of CBC data. Current Interpretive Data was last revised on 2017. Lymphocyte pct 24.4 % [facility] Comment: Interpretive Data Percent cell count reference ranges are not reported, since discordance with absolute values may lead to misinterpretation of CBC data. Current Interpretive Data was last revised on 2017. Monocyte pct 13.7 % [facility] Comment: Interpretive Data Percent cell count reference ranges are not reported, since discordance with absolute values may lead to misinterpretation of CBC data. Current Interpretive Data was last revised on 2017. Eosinophil pct 1.3 % [facility] Comment: Interpretive Data Percent cell count reference ranges are not reported, since discordance with absolute values may lead to misinterpretation of CBC data. Current Interpretive Data was last revised on 2017. Basophil pct 0.8 % [facility] Comment: Interpretive Data Percent cell count reference ranges are not reported, since discordance with absolute values may lead to misinterpretation of CBC data. Current Interpretive Data was last revised on 2017. Blood 06/19/2022 8:54 PM CDT 06/19/2022 9:17 PM CDT Marcelina Lo APPLIANCE COUNSELOR LAB BLOOD ORDERABLES Final Re sult Performing Organization Address [facility] Co de Phone Number [facility] [place] [address] * (ABNORMAL) Blood gas, arterial (06/19/2022 8:54 PM CDT) pH, Art 7.45 7.35 - 7.45 [facility] PCO2, Arterial 32(L) 35 - 45 mmHg [facility] PO2, Arterial 75(L) 83 - 108 mmHg [facility] HCO3 Art (Calculated) 23 20 - 30 mmol/L [facility] BE, art -1 mmol/L [facility] Comment: Interpretive Data No Reference Range Established Current Interpretive Data was last revised on 2017 O2 Sat Art (Measured) 95 90 - 95 % [facility] Blood 06/19/2022 8:54 PM CDT 06/19/2022 9:17 PM CDT Marcelina Lo APPLIANCE COUNSELOR LAB BLOOD ORDERABLES Final Re sult Performing Organization Address [facility] Co de Phone Number [facility] [place] [address] * aPTT (06/19/2022 8:54 PM CDT) Pathologist [facility] aPTT 37 27 - 37 sec [facility] Comment: Interpretive Data Therapeutic heparin range: 60.0 - 94.0 seconds. Based on correlation with therapeutic heparin activity range of 0.3-0.7 Units/mL. Current interpretive data was last revised on 2020. Blood 06/19/2022 8:54 PM CDT 06/19/2022 9:30 PM CDT Narrative [facility] - 06/19/2022 9:38 PM CDT Draw [...] ORDERABLES Final Result Performing Organization Address City/[facility] Co de Phone Number [facility] [place] [address] * Lactate (06/19/2022 8:54 PM CDT) Lactate 1.3 0.7 - 2.0 mmol/L [facility] Blood 06/19/2022 8:54 PM CDT 06/19/2022 9:22 PM CDT Catherine Adams MD LAB BLOOD ORDERABLES Final Result Performing Organization Address City/[facility]/ZIP Co de Phone Number [facility] [place] [address] * (ABNORMAL) Beta-hydroxybutyrate (06/19/2022 8:54 PM CDT) Beta-Hydroxybut yrate 0.7(H) 0.0 - 0.5 mmol/L [facility] Blood 06/19/2022 8:54 PM CDT 06/19/2022 9:17 PM CDT Marcelina D. Lo APPLIANCE COUNSELOR LAB BLOOD ORDERABLES Final Re sult Performing Organization Address City/[facility]/ZIP Co de Phone Number [facility] [place] [address] * (ABNORMAL) Magnesium (06/19/2022 8:54 PM CDT) Pathologist [facility] Magnesium 2.7(H) 1.4 - 2.5 mg/dL [facility] Blood 06/19/2022 8:54 PM CDT 06/19/2022 9:22 PM CDT Marcelina Lo APPLIANCE COUNSELOR LAB BLOOD ORDERABLES Final Re sult Performing Organization Address [facility] Co de Phone Number [facility] Department [place] [address] * (ABNORMAL) Comprehensive metabolic panel (06/19/2022 8:54 PM CDT) [facility] Sodium 140 135 - 145 mmol/L [facility] Potassium, pl 4.8 3.3 - 4.9 mmol/L [facility] Chloride 102 97 - 110 mmol/L [facility] CO2 25 22 - 32 mmol/L [facility] Anion gap 13 2 - 15 mmol/L [facility] BUN 32(H) 8 - 25 mg/dL [facility] Creatinine 4.27(H) 0.80 - 1.30 mg/dL [facility] Glucose 148 70 - 199 mg/dL [facility] Comment: Interpretive Data Fasting glucose >/= [...] 2017. Calcium 8.3(L) 8.5 - 10.3 mg/dL [facility] Bilirubin, total 0.5 0.1 - 1.2 mg/dL [facility] Protein, pl 6.1(L) 6.5 - 8.5 g/dL [facility] Albumin 2.9(L) 3.5 - 5.0 g/dL [facility] Alk phos 150(H) 40 - 130 Units/L [facility] ALT 32 7 - 55 Units/L [facility] AST 61(H) 10 - 50 Units/L [facility] Blood 06/19/2022 8:54 PM CDT 06/19/2022 9:22 PM CDT us Marcelina Lo NP LAB BLOOD ORDERABLES Final Re sult [facility] Department [place] [address] * (ABNORMAL) CBC with auto differential (06/19/2022 8:54 PM CDT) WBC 8.4 3.8 - 9.9 K/cumm [facility] Hgb 6.8(L) 13.0 - 17.5 g/dL [facility] Comment:No apparent cause fo r delta. called ashley sandoval MD Hct 20.5(L) 38.9 - 50.3 % [facility] Plt 255 150 - 400 K/cumm [facility] MPV 9.6 9.1 - 12.3 fL [facility] RBC 2.15(L) 4.30 - 5.80 M/cumm [facility] MCV 95.3 81.3 - 96.4 fL [facility] MCH 31.6 27.1 - 33.3 pg [facility] MCHC 33.2 32.3 - 35.7 g/dL [facility] RDW CV 16.5(H) 11.1 - 14.9 % [facility] RDW SD 55.8(H) 35.7 - 48.1 fL [facility] NRBC abs 0.03(H) 0.00 - 0.01 K/cumm [facility] Blood 06/19/2022 8:54 PM CDT 06/19/2022 9:17 PM CDT us Marcelina Lo APPLIANCE COUNSELOR LAB BLOOD ORDERABLES Final Re sult Performing Organization Address [facility] Co de Phone Number [facility] [place] [address] * (ABNORMAL) POCT glucose (06/19/2022 4:59 PM CDT) Glucose, POC 205(H) 70 - 199 mg/dL [facility] Blood 06/19/2022 4:59 PM CDT 06/19/2022 4:59 PM CDT us Catherine Adams MD LAB POCT ORDERABLES - DEVIC E Final Result Performing Organization Address [facility] de Phone Number [facility] Department [place] [address] * POCT glucose (06/19/2022 1:22 PM CDT) Glucose, POC 101 70 - 199 mg/dL [facility] Blood 06/19/2022 1:22 PM CDT 06/19/2022 1:22 PM CDT us Catherine Adams MD LAB POCT ORDERABLES - DEVIC E Final Result Performing Organization Address [facility] Co de Phone Number [facility] [place] [address] * ECG 12 lead (06/19/2022 1:03 PM CDT) Ventricular Rate EKG/Min 126 BPM [facility] Atrial Rate 63 BPM [facility] QRS-Interval (MSEC) 106 ms [facility] QT-Interval (MSEC) 360 ms [facility] QTc 521 ms [facility] R Esopus -53 degrees [facility] T Esopus 125 degrees [facility] Diagnosis Atrial fibrillation with rapid ventricular response with premature ventricular or aberrantly conducted complexes Left axis deviation Poor precordial R wave progression Anterior infarct , age undetermined ST & T wave abnormality, consider lateral ischemia Abnormal ECG When compared with ECG of 18-JUN-2022 18:40, (unconfirmed) No significant change was found Confirmed by HUDSON SAL M.D ([id number]) on 06/22/2022 10:55:43 AM [facility] 06/19/2022 1:03 PM CDT 06/22/2022 10:55 AM CDT us Conrad Weston Chi, MD ECG ORDERABLES Final Res ult [facility] * US RUQ (06/19/2022 10:35 AM [...] * (ABNORMAL) eGFR (06/19/2022 9:09 AM CDT) [facility] eGFR 13(L) 90 - 130 mL/min/1. 73 m2 [facility] Comment: Interpretive Data Reference Interval Normal [...] 06/19/2022 10:17 AM CDT us Marcelina Lo APPLIANCE COUNSELOR LAB BLOOD ORDERABLES Final Re sult [facility] [place] [address] * Differential, auto (06/19/2022 9:09 AM CDT) Neutrophil abs 2.8 1.7 - 6.5 K/cumm [facility] Imm gran abs 0.0 0.0 - 0.1 K/cumm [facility] Lymphocyte abs 1.2 0.8 - 3.3 K/cumm [facility] Monocyte abs 0.7 0.2 - 0.8 K/cumm [facility] Eosinophil abs 0.1 0.0 - 0.5 K/cumm [facility] Basophil abs 0.1 0.0 - 0.1 K/cumm [facility] Neutrophil pct 56.1 % [facility] Comment: Interpretive Data Percent cell count reference ranges are not reported, since discordance with absolute values may lead to misinterpretation of CBC data. Current Interpretive Data was last revised on 2017. Imm gran pct 0.8 % [facility] Comment: Interpretive Data Percent cell count reference ranges are not reported, since discordance with absolute values may lead to misinterpretation of CBC data. Current Interpretive Data was last revised on 2017. Lymphocyte pct 24.9 % [facility] Comment: Interpretive Data Percent cell count reference ranges are not reported, since discordance with absolute values may lead to misinterpretation of CBC data. Current Interpretive Data was last revised on 2017. Monocyte pct 14.2 % [facility] Comment: Interpretive Data Percent cell count reference ranges are not reported, since discordance with absolute values may lead to misinterpretation of CBC data. Current Interpretive Data was last revised on 2017. Eosinophil pct 2.8 % [facility] Comment: Interpretive Data Percent cell count reference ranges are not reported, since discordance with absolute values may lead to misinterpretation of CBC data. Current Interpretive Data was last revised on 2017. Basophil pct 1.2 % [facility] Comment: Interpretive Data Percent cell count reference ranges are not reported, since discordance with absolute values may lead to misinterpretation of CBC data. Current Interpretive Data was last revised on 2017. Blood 06/19/2022 9:09 AM CDT 06/19/2022 10:25 AM CDT us Marcelina Lo NP LAB BLOOD ORDERABLES Final Re sult [facility] [place] [address] * (ABNORMAL) Blood gas, arterial (06/19/2022 9:09 AM CDT) pH, Art 7.41 7.35 - 7.45 [facility] PCO2, Arterial 33(L) 35 - 45 mmHg [facility] PO2, Arterial 87 83 - 108 mmHg [facility] HCO3 Art (Calculated) 21 20 - 30 mmol/L [facility] BE, art -4 mmol/L [facility] Comment: Interpretive Data No Reference Range Established Current Interpretive Data was last revised on 2017 O2 Sat Art (Measured) 96(H) 90 - 95 % [facility] Blood 06/19/2022 9:09 AM CDT 06/19/2022 9:18 AM CDT Marcelina Lo APPLIANCE COUNSELOR LAB BLOOD ORDERABLES Final Re sult Performing Organization Address [facility] Co de Phone Number [facility] Department [place] [address] * (ABNORMAL) Magnesium (06/19/2022 9:09 AM CDT) Pathologist [facility] Magnesium 2.9(H) 1.4 - 2.5 mg/dL [facility] Blood 06/19/2022 9:09 AM CDT 06/19/2022 10:17 AM CDT Marcelina Lo APPLIANCE COUNSELOR LAB BLOOD ORDERABLES Final Re sult Performing Organization Address [facility] de Phone Number [facility] Department [place] [address] * (ABNORMAL) Comprehensive metabolic panel (06/19/2022 9:09 AM CDT) [facility] Sodium 137 135 - 145 mmol/L [facility] Potassium, pl 4.6 3.3 - 4.9 mmol/L [facility] Chloride 101 97 - 110 mmol/L [facility] CO2 23 22 - 32 mmol/L [facility] Anion gap 13 2 - 15 mmol/L [facility] BUN 35(H) 8 - 25 mg/dL [facility] Creatinine 5.02(H) 0.80 - 1.30 mg/dL [facility] Glucose 205(H) 70 - 199 mg/dL [facility] Comment: Interpretive Data Fasting glucose >/= [...] 2017. Calcium 8.4(L) 8.5 - 10.3 mg/dL [facility] Bilirubin, total 0.4 0.1 - 1.2 mg/dL [facility] Protein, pl 6.1(L) 6.5 - 8.5 g/dL [facility] Albumin 2.9(L) 3.5 - 5.0 g/dL [facility] Alk phos 156(H) 40 - 130 Units/L [facility] ALT 32 7 - 55 Units/L [facility] AST 54(H) 10 - 50 Units/L [facility] Blood 06/19/2022 9:09 AM CDT 06/19/2022 10:17 AM CDT us Marcelina Lo APPLIANCE COUNSELOR LAB BLOOD ORDERABLES Final Re sult [facility] [place] [address] * (ABNORMAL) CBC with auto differential (06/19/2022 9:09 AM CDT) WBC 4.9 3.8 - 9.9 K/cumm [facility] Hgb 9.9(L) 13.0 - 17.5 g/dL [facility] Hct 31.5(L) 38.9 - 50.3 % [facility] Plt 237 150 - 400 K/cumm [facility] MPV 9.9 9.1 - 12.3 fL [facility] RBC 3.20(L) 4.30 - 5.80 M/cumm [facility] MCV 98.4(H) 81.3 - 96.4 fL [facility] MCH 30.9 27.1 - 33.3 pg [facility] MCHC 31.4(L) 32.3 - 35.7 g/dL [facility] RDW CV 16.4(H) 11.1 - 14.9 % [facility] RDW SD 57.2(H) 35.7 - 48.1 fL [facility] NRBC abs 0.00 0.00 - 0.01 K/cumm [facility] Blood 06/19/2022 9:09 AM CDT 06/19/2022 10:25 AM CDT us Marcelina Lo APPLIANCE COUNSELOR LAB BLOOD ORDERABLES Final Re sult Performing Organization Address City/[facility] Co de Phone Number [facility] Department [place] [address] * (ABNORMAL) POCT glucose (06/19/2022 9:08 AM CDT) [facility] Signature Glucose, POC 217(H) 70 - 199 mg/dL [facility] Blood 06/19/2022 9:08 AM CDT 06/19/2022 9:08 AM CDT us Catherine Adams MD LAB POCT ORDERABLES - DEVIC E Final Result Performing Organization Address [facility] Co de Phone Number [facility] [place] [address] * XR Chest 1 View (06/19/2022 5:51 AM CDT) Anatomical Region Laterality Modality Body, Chest N/A Computed Radiogr aphy 06/19/2022 7:34 AM CDT Impressions 06/19/2022 7:34 AM CDT Comparison made to 06/18/2022. ??Right internal jugular catheter tip overlies the superior vena cava. ??Nasogastric tube tip located below diaphragm, not included on the [id number]. ??A tracheal tube tip located within the [...] located below diaphragm, not included on the [id number]. A tracheal tube tip located within the [...] 13(L) 90 - 130 mL/min/1. 73 m2 [facility] Comment: Interpretive Data Reference Interval Normal [...] CDT 06/18/2022 11:02 PM CDT Marcelina Lo APPLIANCE COUNSELOR LAB BLOOD ORDERABLES Final Re sult Performing Organization Address [facility] Co de Phone Number [facility] [place] [address] * Vancomycin level random (06/18/2022 10:50 PM CDT) Pathologist [facility] Vancomycin random 38.4 mcg/mL [facility] Comment: Interpretive Data No reference ranges have been established for random drug levels. Current Interpretive Data was last revised on 2020. Blood 06/18/2022 10:5 0 PM CDT 06/18/2022 10:59 PM CDT Catherine Adams MD LAB BLOOD ORDERABLES Final Result Performing Organization Address [facility] de Phone Number [facility] [place] [address] * (ABNORMAL) Differential, auto (06/18/2022 10:50 PM CDT) [facility] Neutrophil abs 5.0 1.7 - 6.5 K/cumm [facility] Imm gran abs 0.1 0.0 - 0.1 K/cumm [facility] Lymphocyte abs 1.7 0.8 - 3.3 K/cumm [facility] Monocyte abs 1.3(H) 0.2 - 0.8 K/cumm [facility] Eosinophil abs 0.2 0.0 - 0.5 K/cumm [facility] Basophil abs 0.1 0.0 - 0.1 K/cumm [facility] Neutrophil pct 60.3 % [facility] Comment: Interpretive Data Percent cell count reference ranges are not reported, since discordance with absolute values may lead to misinterpretation of CBC data. Current Interpretive Data was last revised on 2017. Imm gran pct 0.7 % [facility] Comment: Interpretive Data Percent cell count reference ranges are not reported, since discordance with absolute values may lead to misinterpretation of CBC data. Current Interpretive Data was last revised on 2017. Lymphocyte pct 20.4 % [facility] Comment: Interpretive Data Percent cell count reference ranges are not reported, since discordance with absolute values may lead to misinterpretation of CBC data. Current Interpretive Data was last revised on 2017. Monocyte pct 16.0 % [facility] Comment: Interpretive Data Percent cell count reference ranges are not reported, since discordance with absolute values may lead to misinterpretation of CBC data. Current Interpretive Data was last revised on 2017. Eosinophil pct 2.0 % [facility] Comment: Interpretive Data Percent cell count reference ranges are not reported, since discordance with absolute values may lead to misinterpretation of CBC data. Current Interpretive Data was last revised on 2017. Basophil pct 0.6 % [facility] Comment: Interpretive Data Percent cell count reference ranges are not reported, since discordance with absolute values may lead to misinterpretation of CBC data. Current Interpretive Data was last revised on 2017. Blood 06/18/2022 10:5 0 PM CDT 06/18/2022 10:59 PM CDT us Marcelina Lo APPLIANCE COUNSELOR LAB BLOOD ORDERABLES Final Re sult [facility] [place] [address] * Lactate (06/18/2022 10:50 PM CDT) Lactate 1.0 0.7 - 2.0 mmol/L [facility] Blood 06/18/2022 10:5 0 PM CDT 06/18/2022 11:02 PM CDT us Catherine Adams MD LAB BLOOD ORDERABLES Final Result [facility] [place] [address] * (ABNORMAL) Triglycerides (06/18/2022 10:50 PM CDT) Triglycerides 226(H) <=149 mg/dL [facility] Comment: Interpretive Data Ages < [...] PM CDT 06/18/2022 10:59 PM CDT Narrative [facility] - 06/18/2022 11:57 PM CDT While on propofol infusion. us Catehrine Adams MD LAB BLOOD ORDERABLES Final Result [facility] [place] [address] * (ABNORMAL) Phosphorus (06/18/2022 10:50 PM CDT) Phosphorus, pl 5.2(H) 2.3 - 4.5 mg/dL [facility] Blood 06/18/2022 10:5 0 PM CDT 06/18/2022 10:59 PM CDT Marcelina Lo APPLIANCE COUNSELOR LAB BLOOD ORDERABLES Final Re sult Performing Organization Address [facility] de Phone Number [facility] [place] [address] * (ABNORMAL) Beta-hydroxybutyrate (06/18/2022 10:50 PM CDT) Beta-Hydroxybut yrate 1.3(H) 0.0 - 0.5 mmol/L [facility] Blood 06/18/2022 10:5 0 PM CDT 06/18/2022 10:59 PM CDT Marcelina Lo APPLIANCE COUNSELOR LAB BLOOD ORDERABLES Final Re sult Performing Organization Address [facility] de Phone Number [facility] [place] [address] * Lipase (06/18/2022 10:50 PM CDT) Lipase 22 10 - 99 Units/L [facility] Blood 06/18/2022 10:5 0 PM CDT 06/18/2022 10:59 PM CDT Marcelina Lo APPLIANCE COUNSELOR LAB BLOOD ORDERABLES Final Re sult Performing Organization Address [facility] de Phone Number [facility] [place] [address] * (ABNORMAL) Magnesium (06/18/2022 10:50 PM CDT) Magnesium 3.1(H) 1.4 - 2.5 mg/dL [facility] Blood 06/18/2022 10:5 0 PM CDT 06/18/2022 11:02 PM CDT us Marcelina Lo APPLIANCE COUNSELOR LAB BLOOD ORDERABLES Final Re sult [facility] [place] [address] * (ABNORMAL) Comprehensive metabolic panel (06/18/2022 10:50 PM CDT) Sodium 140 135 - 145 mmol/L [facility] Potassium, pl 4.3 3.3 - 4.9 mmol/L [facility] Chloride 103 97 - 110 mmol/L [facility] CO2 22 22 - 32 mmol/L [facility] Anion gap 15 2 - 15 mmol/L [facility] BUN 35(H) 8 - 25 mg/dL [facility] Creatinine 5.01(H) 0.80 - 1.30 mg/dL [facility] Glucose 199 70 - 199 mg/dL [facility] Comment: Interpretive Data Fasting glucose >/= [...] 8.7 8.5 - 10.3 mg/dL [facility] Bilirubin, total 0.4 0.1 - 1.2 mg/dL [facility] Protein, pl 6.5 6.5 - 8.5 g/dL [facility] Albumin 2.8(L) 3.5 - 5.0 g/dL [facility] Alk phos 163(H) 40 - 130 Units/L [facility] ALT 34 7 - 55 Units/L [facility] AST 56(H) 10 - 50 Units/L [facility] Blood 06/18/2022 10:5 0 PM CDT 06/18/2022 11:02 PM CDT us Marcelina Lo APPLIANCE COUNSELOR LAB BLOOD ORDERABLES Final Re sult Performing Organization Address City/[facility]/ZIP Co de Phone Number [facility] [place] [address] * (ABNORMAL) CBC with auto differential (06/18/2022 10:50 PM CDT) [facility] WBC 8.4 3.8 - 9.9 K/cumm [facility] Hgb 7.5(L) 13.0 - 17.5 g/dL [facility] Hct 23.6(L) 38.9 - 50.3 % [facility] Plt 313 150 - 400 K/cumm [facility] MPV 9.8 9.1 - 12.3 fL [facility] RBC 2.41(L) 4.30 - 5.80 M/cumm [facility] MCV 97.9(H) 81.3 - 96.4 fL [facility] MCH 31.1 27.1 - 33.3 pg [facility] MCHC 31.8(L) 32.3 - 35.7 g/dL [facility] RDW CV 16.5(H) 11.1 - 14.9 % [facility] RDW SD 56.5(H) 35.7 - 48.1 fL [facility] NRBC abs 0.00 0.00 - 0.01 K/cumm [facility] Blood 06/18/2022 10:5 0 PM CDT 06/18/2022 10:59 PM CDT us Marcelina Lo APPLIANCE COUNSELOR LAB BLOOD ORDERABLES Final Re sult [facility] [place] [address] * (ABNORMAL) POCT glucose (06/18/2022 7:51 PM CDT) Pathologist [facility] Glucose, POC 256(H) 70 - 199 mg/dL [facility] Blood 06/18/2022 7:51 PM CDT 06/18/2022 7:51 PM CDT Catherine Adams MD LAB POCT ORDERABLES - DEVIC E Final Result Performing Organization Address [facility] Co de Phone Number [facility] [place] [address] * ECG 12 lead (06/18/2022 6:40 PM CDT) Ventricular Rate EKG/Min 133 BPM [facility] Atrial Rate 147 BPM [facility] QRS-Interval (MSEC) 102 ms [facility] QT-Interval (MSEC) 332 ms [facility] QTc 494 ms [facility] R [place] -43 degrees [facility] T [place] 123 degrees [facility] Diagnosis Atrial fibrillation with rapid ventricular [...] anyterior leads Confirmed by KENN BILLINGSLEY M.D ([id number]) on 06/21/2022 1:28:53 PM [facility] 06/18/2022 6:40 PM CDT 06/21/2022 1:28 PM CDT Conrad Weston Chi, MD ECG ORDERABLES Final Res ult Performing Organization Address City/[facility]/ZIP Co de Phone Number [facility] * POCT glucose (06/18/2022 5:11 PM CDT) Pathologist [facility] Glucose, POC 168 70 - 199 mg/dL [facility] Blood 06/18/2022 5:11 PM CDT 06/18/2022 5:11 PM CDT Catherine Adams MD LAB POCT ORDERABLES - DEVIC E Final Result Performing Organization Address [facility]/ZIP Co de Phone Number [facility] [place] [address] * POCT glucose (06/18/2022 4:16 PM CDT) Glucose, POC 181 70 - 199 mg/dL [facility] Blood 06/18/2022 4:16 PM CDT 06/18/2022 4:16 PM CDT Catherine Adams MD LAB POCT ORDERABLES - DEVIC E Final Result Performing Organization Address [facility] de Phone Number [facility] [place] [address] * (ABNORMAL) POCT glucose (06/18/2022 2:38 PM CDT) Glucose, POC 264(H) 70 - 199 mg/dL [facility] Blood 06/18/2022 2:38 PM CDT 06/18/2022 2:38 PM CDT Catherine Adams MD LAB POCT ORDERABLES - DEVIC E Final Result Performing Organization Address [facility] Co de Phone Number [facility] [place] [address] * (ABNORMAL) POCT glucose (06/18/2022 1:34 PM CDT) Glucose, POC 376(H) 70 - 199 mg/dL [facility] Blood 06/18/2022 1:34 PM CDT 06/18/2022 1:34 PM CDT Catheirne Adams MD LAB POCT ORDERABLES - DEVIC E Final Result Performing Organization Address City/[facility] Co de Phone Number [facility] [place] [address] * (ABNORMAL) Beta-hydroxybutyrate (06/18/2022 1:32 PM CDT) Beta-Hydroxybut yrate 0.9(H) 0.0 - 0.5 mmol/L [facility] Blood 06/18/2022 1:32 PM CDT 06/18/2022 1:48 PM CDT us Catherine Adams MD LAB BLOOD ORDERABLES Final Result [facility] [place] [address] * IR Central Line Placement > 5 [...] was obtained. ??Prior to beginning the procedure, [place] Protocol was used to confirm the patient's [...] was obtained. Prior to beginning the procedure, [place] Protocol was used to confirm the patient's [...] 170 70 - 199 mg/dL [facility] Blood 06/18/2022 11:3 4 AM CDT 06/18/2022 11:34 AM CDT Catherine Adams MD LAB POCT ORDERABLES - DEVIC E Final Result Performing Organization Address City/[facility]/ZIP Co de Phone Number [facility] [place] [address] * (ABNORMAL) Blood gas, arterial (06/18/2022 10:14 AM CDT) pH, Art 7.36 7.35 - 7.45 [facility] PCO2, Arterial 37 35 - 45 mmHg [facility] PO2, Arterial 74(L) 83 - 108 mmHg [facility] HCO3 Art (Calculated) 21 20 - 30 mmol/L [facility] BE, art -4 mmol/L [facility] Comment: Interpretive Data No Reference Range Established Current Interpretive Data was last revised on 2017 O2 Sat Art (Measured) 94 90 - 95 % [facility] Blood 06/18/2022 10:1 4 AM CDT 06/18/2022 10:23 AM CDT Marcelina Lo NP LAB BLOOD ORDERABLES Final Re sult Performing Organization Address [facility]/ZIP Co de Phone Number [facility] [place] [address] * POCT glucose (06/18/2022 10:13 AM CDT) Glucose, POC 83 70 - 199 mg/dL [facility] Blood 06/18/2022 10:1 3 AM CDT 06/18/2022 10:13 AM CDT Catherine Adams MD LAB POCT ORDERABLES - DEVIC E Final Result Performing Organization Address City/[facility]/ZIP Co de Phone Number [facility] [place] [address] * (ABNORMAL) eGFR (06/18/2022 8:52 AM CDT) [...] BLOOD ORDERABLES Final Re sult [facility] [place] [address] * Vancomycin level random (06/18/2022 8:52 AM CDT) Vancomycin random 51.8 mcg/mL [facility] Comment: Repeated on Dilution Interpretive Data No reference ranges have been established for random drug levels. Current Interpretive Data was last revised on 2020. Blood 06/18/2022 8:52 AM CDT 06/18/2022 8:58 AM CDT us Catherine Adams MD LAB BLOOD ORDERABLES Final Result [facility] [place] [address] * (ABNORMAL) Differential, auto (06/18/2022 8:52 AM CDT) Neutrophil abs 5.2 1.7 - 6.5 K/cumm [facility] Imm gran abs 0.1 0.0 - 0.1 K/cumm [facility] Lymphocyte abs 1.8 0.8 - 3.3 K/cumm [facility] Monocyte abs 1.6(H) 0.2 - 0.8 K/cumm [facility] Eosinophil abs 0.2 0.0 - 0.5 K/cumm [facility] Basophil abs 0.1 0.0 - 0.1 K/cumm [facility] Neutrophil pct 58.4 % [facility] Comment: Interpretive Data Percent cell count reference ranges are not reported, since discordance with absolute values may lead to misinterpretation of CBC data. Current Interpretive Data was last revised on 2017. Imm gran pct 1.0 % [facility] Comment: Interpretive Data Percent cell count reference ranges are not reported, since discordance with absolute values may lead to misinterpretation of CBC data. Current Interpretive Data was last revised on 2017. Lymphocyte pct 19.8 % [facility] Comment: Interpretive Data Percent cell count reference ranges are not reported, since discordance with absolute values may lead to misinterpretation of CBC data. Current Interpretive Data was last revised on 2017. Monocyte pct 17.5 % [facility] Comment: Interpretive Data Percent cell count reference ranges are not reported, since discordance with absolute values may lead to misinterpretation of CBC data. Current Interpretive Data was last revised on 2017. Eosinophil pct 2.6 % [facility] Comment: Interpretive Data Percent cell count reference ranges are not reported, since discordance with absolute values may lead to misinterpretation of CBC data. Current Interpretive Data was last revised on 2017. Basophil pct 0.7 % [facility] Comment: Interpretive Data Percent cell count reference ranges are not reported, since discordance with absolute values may lead to misinterpretation of CBC data. Current Interpretive Data was last revised on 2017. Blood 06/18/2022 8:52 AM CDT 06/18/2022 8:58 AM CDT Marcelina Lo APPLIANCE COUNSELOR LAB BLOOD ORDERABLES Final Re sult Performing Organization Address [facility] Co de Phone Number [facility] [place] [address] * (ABNORMAL) Magnesium (06/18/2022 8:52 AM CDT) Pathologist [facility] Magnesium 2.9(H) 1.4 - 2.5 mg/dL [facility] Blood 06/18/2022 8:52 AM CDT 06/18/2022 8:58 AM CDT Marcelina Lo APPLIANCE COUNSELOR LAB BLOOD ORDERABLES Final Re sult Performing Organization Address [facility] de Phone Number [facility] [place] [address] * (ABNORMAL) Comprehensive metabolic panel (06/18/2022 8:52 AM CDT) Pathologist [facility] Sodium 143 135 - 145 mmol/L [facility] Potassium, pl 4.0 3.3 - 4.9 mmol/L [facility] Chloride 104 97 - 110 mmol/L [facility] CO2 23 22 - 32 mmol/L [facility] Anion gap 16(H) 2 - 15 mmol/L [facility] BUN 40(H) 8 - 25 mg/dL [facility] Creatinine 6.24(H) 0.80 - 1.30 mg/dL [facility] Glucose 116 70 - 199 mg/dL [facility] Comment: Interpretive Data Fasting glucose >/= [...] 2017. Calcium 9.5 8.5 - 10.3 mg/dL [facility] Bilirubin, total 0.4 0.1 - 1.2 mg/dL [facility] Protein, pl 7.4 6.5 - 8.5 g/dL [facility] Albumin 3.3(L) 3.5 - 5.0 g/dL [facility] Alk phos 197(H) 40 - 130 Units/L [facility] ALT 36 7 - 55 Units/L [facility] AST 60(H) 10 - 50 Units/L [facility] Blood 06/18/2022 8:52 AM CDT 06/18/2022 8:58 AM CDT us Marcelina Lo APPLIANCE COUNSELOR LAB BLOOD ORDERABLES Final Re sult [facility] [place] [address] * (ABNORMAL) CBC with auto differential (06/18/2022 8:52 AM CDT) WBC 8.9 3.8 - 9.9 K/cumm [facility] Hgb 8.8(L) 13.0 - 17.5 g/dL [facility] Hct 27.1(L) 38.9 - 50.3 % [facility] Plt 283 150 - 400 K/cumm [facility] MPV 9.7 9.1 - 12.3 fL [facility] RBC 2.81(L) 4.30 - 5.80 M/cumm [facility] MCV 96.4 81.3 - 96.4 fL [facility] MCH 31.3 27.1 - 33.3 pg [facility] MCHC 32.5 32.3 - 35.7 g/dL [facility] RDW CV 16.2(H) 11.1 - 14.9 % [facility] RDW SD 54.0(H) 35.7 - 48.1 fL [facility] NRBC abs 0.00 0.00 - 0.01 K/cumm [facility] Blood 06/18/2022 8:52 AM CDT 06/18/2022 8:58 AM CDT us Marcelina Lo APPLIANCE COUNSELOR LAB BLOOD ORDERABLES Final Re sult Performing Organization Address City/[facility]/ZIP Co de Phone Number [facility] [place] [address] * POCT glucose (06/18/2022 8:49 AM CDT) Glucose, POC 109 70 - 199 mg/dL [facility] Blood 06/18/2022 8:49 AM CDT 06/18/2022 8:49 AM CDT us Catherine Adams MD LAB POCT ORDERABLES - DEVIC E Final Result Performing Organization Address City/[facility] Co de Phone Number [facility] [place] [address] * POCT glucose (06/18/2022 6:53 AM CDT) Glucose, POC 145 70 - 199 mg/dL [facility] Blood 06/18/2022 6:53 AM CDT 06/18/2022 6:53 AM CDT us Catherine Adams MD LAB POCT ORDERABLES - DEVIC E Final Result Performing Organization Address City/[facility]/ZIP Co de Phone Number [facility] [place] [address] * POCT glucose (06/18/2022 6:11 AM CDT) Glucose, POC 164 70 - 199 mg/dL [facility] Blood 06/18/2022 6:11 AM CDT 06/18/2022 6:11 AM CDT Catherine Adams MD LAB POCT ORDERABLES - DEVIC E Final Result [facility] [place] [address] * XR Chest 1 View (06/18/2022 5:48 [...] Cardiac mediastinal contours are stable.. Dictated by: Fernanod Reinoso M.D. The radiology attending physician has personally reviewed this study, and had reviewed and/or edited this written report and agrees with it. Electronically signed by: Ramirez Blake M.D. Catherine Adams MD IMG XR PROCEDURES Final Res ult * (ABNORMAL) aPTT (06/18/2022 5:13 AM CDT) aPTT 63(H) 27 - 37 sec [facility] Comment: Interpretive Data Therapeutic heparin range: 60.0 - 94.0 seconds. Based on correlation with therapeutic heparin activity range of 0.3-0.7 Units/mL. Current interpretive data was last revised on 2020. Blood 06/18/2022 5:13 AM CDT 06/18/2022 5:42 AM CDT Narrative [facility] - 06/18/2022 6:05 AM CDT Draw STAT PTT 6 hrs after initiation of heparin infusion, draw STAT PTT 6 hours after each dose/rate change, and every 6 hours until 2 consecutive PTTs are within therapeutic range. Once two consecutive PTT's are therapeutic (60-94.9 seconds), then draw PTT every AM until heparin is discontinued. Catherine Adams MD LAB BLOOD ORDERABLES Final Result [facility] [place] [address] * (ABNORMAL) Blood gas, arterial (06/18/2022 5:13 AM CDT) pH, Art 7.33(L) 7.35 - 7.45 [facility] PCO2, Arterial 39 35 - 45 mmHg [facility] PO2, Arterial 92 83 - 108 mmHg [facility] HCO3 Art (Calculated) 21 20 - 30 mmol/L [facility] BE, art -5 mmol/L [facility] Comment: Interpretive Data No Reference Range Established Current Interpretive Data was last revised on 2017 O2 Sat Art (Measured) 96(H) 90 - 95 % [facility] Blood 06/18/2022 5:13 AM CDT 06/18/2022 5:34 AM CDT us Marcelina Lo APPLIANCE COUNSELOR LAB BLOOD ORDERABLES Final Re sult Performing Organization Address City/[facility] Co de Phone Number [facility] [place] [address] * (ABNORMAL) POCT glucose (06/18/2022 5:10 AM CDT) Glucose, POC 205(H) 70 - 199 mg/dL [facility] Blood 06/18/2022 5:10 AM CDT 06/18/2022 5:10 AM CDT Catherine Adams MD LAB POCT ORDERABLES - DEVIC E Final Result Performing Organization Address [facility] Co de Phone Number [facility] [place] [address] * POCT glucose (06/18/2022 4:08 AM CDT) Glucose, POC 186 70 - 199 mg/dL [facility] Blood 06/18/2022 4:08 AM CDT 06/18/2022 4:08 AM CDT Catherine Adams MD LAB POCT ORDERABLES - DEVIC E Final Result Performing Organization Address City/[facility] Co de Phone Number [facility] [place] [address] * POCT glucose (06/18/2022 3:24 AM CDT) Glucose, POC 179 70 - 199 mg/dL [facility] Blood 06/18/2022 3:24 AM CDT 06/18/2022 3:24 AM CDT us Catherine Adams MD LAB POCT ORDERABLES - DEVIC E Final Result Performing Organization Address [facility] de Phone Number [facility] [place] [address] * POCT glucose (06/18/2022 2:25 AM CDT) Glucose, POC 132 70 - 199 mg/dL [facility] Blood 06/18/2022 2:25 AM CDT 06/18/2022 2:25 AM CDT us Catherine Adams MD LAB POCT ORDERABLES - DEVIC E Final Result Performing Organization Address [facility] Phone Number [facility] [place] [address] * POCT glucose (06/18/2022 1:27 AM CDT) Glucose, POC 105 70 - 199 mg/dL [facility] Blood 06/18/2022 1:27 AM CDT 06/18/2022 1:27 AM CDT us Catherine Adams MD LAB POCT ORDERABLES - DEVIC E Final Result Performing Organization Address [facility] Phone Number [facility] [place] [address] * POCT glucose (06/17/2022 10:45 PM CDT) Glucose, POC 138 70 - 199 mg/dL [facility] Blood 06/17/2022 10:4 5 PM CDT 06/17/2022 10:45 PM CDT us Catherine Adams MD LAB POCT ORDERABLES - DEVIC E Final Result Performing Organization Address City/[facility] Co de Phone Number [facility] [place] [address] * (ABNORMAL) Hemoglobin and hematocrit (06/17/2022 10:31 PM CDT) [facility] Hgb 7.9(L) 13.0 - 17.5 g/dL [facility] Hct 24.0(L) 38.9 - 50.3 % [facility] Blood 06/17/2022 10:3 1 PM CDT 06/17/2022 10:45 PM CDT us Tyra De La Torre MD LAB BLOOD ORDERABLES Final Resu lt Performing Organization Address [facility] Co de Phone Number [facility] [place] [address] * Type and screen (06/17/2022 10:31 PM CDT) [facility] Maribel, indirect Negative [facility] ABO Rh A Positive [facility] Blood 06/17/2022 10:3 1 PM CDT 06/17/2022 10:53 PM CDT Narrative [facility] - 06/17/2022 11:49 PM CDT Has the patient had Daratumumab or Isatuximab in the past 6 months?->Unknown us Catherine Adams MD LAB BLOOD BANK TEST ORDERAB LES Final Result Performing Organization Address [facility] Co de Phone Number [facility] [place] [address] * (ABNORMAL) eGFR (06/17/2022 9:17 PM CDT) [facility] eGFR 11(L) 90 - 130 mL/min/1. 73 m2 [facility] Comment: Interpretive Data Reference Interval Normal [...] ORDERABLES Final Result Performing Organization Address City/[facility]/ZIP Co de Phone Number [facility] [place] [address] * (ABNORMAL) Magnesium (06/17/2022 9:17 PM CDT) Magnesium 2.9(H) 1.4 - 2.5 mg/dL [facility] Blood 06/17/2022 9:17 PM CDT 06/17/2022 9:27 PM CDT Catherine Adams MD LAB BLOOD ORDERABLES Final Result Performing Organization Address City/[facility] Co de Phone Number [facility] [place] [address] * (ABNORMAL) Comprehensive metabolic panel (06/17/2022 9:17 PM CDT) Sodium 142 135 - 145 mmol/L [facility] Potassium, pl 3.2(L) 3.3 - 4.9 mmol/L [facility] Chloride 104 97 - 110 mmol/L [facility] CO2 23 22 - 32 mmol/L [facility] Anion gap 15 2 - 15 mmol/L [facility] BUN 41(H) 8 - 25 mg/dL [facility] Creatinine 5.65(H) 0.80 - 1.30 mg/dL [facility] Glucose 121 70 - 199 mg/dL [facility] Comment: Interpretive Data Fasting glucose >/= [...] 2017. Calcium 9.3 8.5 - 10.3 mg/dL [facility] Bilirubin, total 0.4 0.1 - 1.2 mg/dL [facility] Protein, pl 6.4(L) 6.5 - 8.5 g/dL [facility] Albumin 2.7(L) 3.5 - 5.0 g/dL [facility] Alk phos 181(H) 40 - 130 Units/L [facility] ALT 33 7 - 55 Units/L [facility] AST 52(H) 10 - 50 Units/L [facility] Blood 06/17/2022 9:17 PM CDT 06/17/2022 9:27 PM CDT us Catherine Adams MD LAB BLOOD ORDERABLES Final Result [facility] [place] [address] * (ABNORMAL) Differential, auto (06/17/2022 9:17 PM CDT) Neutrophil abs 4.5 1.7 - 6.5 K/cumm [facility] Imm gran abs 0.1 0.0 - 0.1 K/cumm [facility] Lymphocyte abs 1.5 0.8 - 3.3 K/cumm [facility] Monocyte abs 1.4(H) 0.2 - 0.8 K/cumm [facility] Eosinophil abs 0.3 0.0 - 0.5 K/cumm [facility] Basophil abs 0.0 0.0 - 0.1 K/cumm [facility] Neutrophil pct 58.5 % [facility] Comment: Interpretive Data Percent cell count reference ranges are not reported, since discordance with absolute values may lead to misinterpretation of CBC data. Current Interpretive Data was last revised on 2017. Imm gran pct 1.0 % [facility] Comment: Interpretive Data Percent cell count reference ranges are not reported, since discordance with absolute values may lead to misinterpretation of CBC data. Current Interpretive Data was last revised on 2017. Lymphocyte pct 19.0 % [facility] Comment: Interpretive Data Percent cell count reference ranges are not reported, since discordance with absolute values may lead to misinterpretation of CBC data. Current Interpretive Data was last revised on 2017. Monocyte pct 17.6 % [facility] Comment: Interpretive Data Percent cell count reference ranges are not reported, since discordance with absolute values may lead to misinterpretation of CBC data. Current Interpretive Data was last revised on 2017. Eosinophil pct 3.5 % [facility] Comment: Interpretive Data Percent cell count reference ranges are not reported, since discordance with absolute values may lead to misinterpretation of CBC data. Current Interpretive Data was last revised on 2017. Basophil pct 0.4 % [facility] Comment: Interpretive Data Percent cell count reference ranges are not reported, since discordance with absolute values may lead to misinterpretation of CBC data. Current Interpretive Data was last revised on 2017. Blood 06/17/2022 9:17 PM CDT 06/17/2022 9:26 PM CDT us Marcelina Lo NP LAB BLOOD ORDERABLES Final Re sult Performing Organization Address [facility] Co de Phone Number [facility] [place] [address] * Lactate (06/17/2022 9:17 PM CDT) Lactate 1.3 0.7 - 2.0 mmol/L [facility] Blood 06/17/2022 9:17 PM CDT 06/17/2022 9:29 PM CDT us Catherine Adams MD LAB BLOOD ORDERABLES Final Result Performing Organization Address [facility] de Phone Number [facility] [place] [address] * (ABNORMAL) Triglycerides (06/17/2022 9:17 PM CDT) Triglycerides 272(H) <=149 mg/dL [facility] Comment: Interpretive Data Ages < [...] PM CDT 06/17/2022 9:27 PM CDT Narrative [facility] - 06/17/2022 10:11 PM CDT While on propofol infusion. Catherine Adams MD LAB BLOOD ORDERABLES Final Result [facility] [place] [address] * (ABNORMAL) Phosphorus (06/17/2022 9:17 PM CDT) Phosphorus, pl 5.8(H) 2.3 - 4.5 mg/dL [facility] Blood 06/17/2022 9:17 PM CDT 06/17/2022 9:27 PM CDT Marcelina Lo APPLIANCE COUNSELOR LAB BLOOD ORDERABLES Final Re sult Performing Organization Address [facility] Co de Phone Number [facility] [place] [address] * Beta-hydroxybutyrate (06/17/2022 9:17 PM CDT) Beta-Hydroxybut yrate 0.1 0.0 - 0.5 mmol/L [facility] Blood 06/17/2022 9:17 PM CDT 06/17/2022 9:26 PM CDT Marcelina Lo APPLIANCE COUNSELOR LAB BLOOD ORDERABLES Final Re sult Performing Organization Address City/[facility]/ZIP Co de Phone Number [facility] [place] [address] * Lipase (06/17/2022 9:17 PM CDT) Pathologist [facility] Lipase 22 10 - 99 Units/L [facility] Blood 06/17/2022 9:17 PM CDT 06/17/2022 9:27 PM CDT Marcelina Lo APPLIANCE COUNSELOR LAB BLOOD ORDERABLES Final Re sult [facility] [place] [address] * (ABNORMAL) CBC with auto differential (06/17/2022 9:17 PM CDT) [facility] WBC 7.7 3.8 - 9.9 K/cumm [facility] Hgb 6.2(C) 13.0 - 17.5 g/dL [facility] Comment:Critical result call ed to and read back by MINERVA CLINTON RN on 06 17 2022 at 2214 to BRIAN BATES. Hct 19.1(L) 38.9 - 50.3 % [facility] Plt 300 150 - 400 K/cumm [facility] MPV 10.1 9.1 - 12.3 fL [facility] RBC 1.98(L) 4.30 - 5.80 M/cumm [facility] MCV 96.5(H) 81.3 - 96.4 fL [facility] MCH 31.3 27.1 - 33.3 pg [facility] MCHC 32.5 32.3 - 35.7 g/dL [facility] RDW CV 15.9(H) 11.1 - 14.9 % [facility] RDW SD 50.9(H) 35.7 - 48.1 fL [facility] NRBC abs 0.00 0.00 - 0.01 K/cumm [facility] Blood 06/17/2022 9:17 PM CDT 06/17/2022 9:26 PM CDT Marcelina Lo APPLIANCE COUNSELOR LAB BLOOD ORDERABLES Final Re sult [facility] [place] [address] * POCT glucose (06/17/2022 8:52 PM CDT) Glucose, POC 129 70 - 199 mg/dL [facility] Blood 06/17/2022 8:52 PM CDT 06/17/2022 8:52 PM CDT Catherine Adams MD LAB POCT ORDERABLES - DEVIC E Final Result Performing Organization Address City/[facility] Co de Phone Number [facility] Department [place] [address] * POCT glucose (06/17/2022 7:40 PM CDT) Glucose, POC 118 70 - 199 mg/dL [facility] Blood 06/17/2022 7:40 PM CDT 06/17/2022 7:40 PM CDT Catherine Adams MD LAB POCT ORDERABLES - DEVIC E Final Result Performing Organization Address City/[facility] Co de Phone Number [facility] [place] [address] * [place] INSJ NON-TUNNELED CENTRAL VENOUS CATH AGE 5 YR/> (06/17/2022 7:30 PM CDT) Narrative Rufino Flores MD - 06/17/2022 7:30 PM CDT Aj Poe MD ? 06/17/2022 ??7:37 PM Central Line Insertion Date/Time: 06/17/2022 7:30 PM Performed by: Aj Poe MD Authorized by: Aj Poe MD [place] Protocol: RN Notified of Procedure: yes ?? 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 and accepts and risks, benefits, [...] Glucose, POC 133 70 - 199 mg/dL [facility] Blood 06/17/2022 5:11 PM CDT 06/17/2022 5:11 PM CDT Catherine Adams MD LAB POCT ORDERABLES - DEVIC E Final Result [facility] [place] [address] * POCT glucose (06/17/2022 3:01 PM CDT) Glucose, POC 142 70 - 199 mg/dL [facility] Blood 06/17/2022 3:01 PM CDT 06/17/2022 3:01 PM CDT Catherine Adams MD LAB POCT ORDERABLES - DEVIC E Final Result Performing Organization Address City/[facility] Co de Phone Number [facility] [place] [address] * POCT glucose (06/17/2022 1:50 PM CDT) Glucose, POC 141 70 - 199 mg/dL [facility] Blood 06/17/2022 1:50 PM CDT 06/17/2022 1:50 PM CDT Catherine Adams MD LAB POCT ORDERABLES - DEVIC E Final Result Performing Organization Address [facility] Co de Phone Number [facility] [place] [address] * POCT glucose (06/17/2022 12:59 PM CDT) Glucose, POC 151 70 - 199 mg/dL [facility] Blood 06/17/2022 12:5 9 PM CDT 06/17/2022 12:59 PM CDT Catherine Adams MD LAB POCT ORDERABLES - DEVIC E Final Result Performing Organization Address City/[facility] de Phone Number [facility] [place] [address] * POCT glucose (06/17/2022 11:55 AM CDT) Glucose, POC 167 70 - 199 mg/dL [facility] Blood 06/17/2022 11:5 5 AM CDT 06/17/2022 11:55 AM CDT us Catherine Adams MD LAB POCT ORDERABLES - DEVIC E Final Result Performing Organization Address [facility] Co de Phone Number [facility] [place] [address] * POCT glucose (06/17/2022 10:51 AM CDT) Glucose, POC 185 70 - 199 mg/dL [facility] Blood 06/17/2022 10:5 1 AM CDT 06/17/2022 10:51 AM CDT Catherine Adams MD LAB POCT ORDERABLES - DEVIC E Final Result Performing Organization Address [facility] de Phone Number [facility] [place] [address] * POCT glucose (06/17/2022 10:11 AM CDT) Glucose, POC 119 70 - 199 mg/dL [facility] Blood 06/17/2022 10:1 1 AM CDT 06/17/2022 10:11 AM CDT Catherine Adams MD LAB POCT ORDERABLES - DEVIC E Final Result Performing Organization Address City/[facility] [place] [address] * POCT glucose (06/17/2022 9:39 AM CDT) Glucose, POC 181 70 - 199 mg/dL [facility] Blood 06/17/2022 9:39 AM CDT 06/17/2022 9:39 AM CDT Catherine Adams MD LAB POCT ORDERABLES - DEVIC E Final Result Performing Organization Address [facility]/ZIP Co de Phone Number [facility]ESSANDRA CARRION [facility] [place] [address] * Blood culture Blood (06/17/2022 8:13 AM CDT) Report Final Report: No growth [facility] Blood 06/17/2022 8:13 AM CDT 06/17/2022 8:24 [...] organism identification may be performed using the Microstimigene Gram-Positive Blood Culture Assay. This assay detects microbial DNA in positive blood culture broth via hybridization of target DNA to capture oligonucleotides on a microarray. This assay has been cleared by the [place] Food and Drug Administration and its performance characteristics have been verified by the [facility] Microbiology Laboratory. 5. ?For questions about this culture, contact the Microbiology Laboratory at [phone]. Interpretive data was last revised on 2020. Catherine Adams MD LAB MICROBIOLOGY - GENERAL ORDERABLES Final Result Performing Organization Address City/[facility] Co de Phone Number [facility]ESS[facility]DRA [facility] [place] [address] * Blood culture Blood (06/17/2022 8:13 AM [...] organism identification may be performed using the Microstimigene Gram-Positive Blood Culture Assay. This assay detects microbial DNA in positive blood culture broth via hybridization of target DNA to capture oligonucleotides on a microarray. This assay has been cleared by the [place] Food and Drug Administration and its performance characteristics have been verified by the [facility] Microbiology Laboratory. 5. ?For questions about this culture, contact the Microbiology Laboratory at [phone]. Interpretive data was last revised on 2020. Catherine Adams MD LAB MICROBIOLOGY - GENERAL ORDERABLES Final Result [facility] C[facility] [place] [address] * (ABNORMAL) eGFR (06/17/2022 8:02 AM CDT) eGFR 13(L) 90 - 130 mL/min/1. 73 m2 [facility] Comment: Interpretive Data Reference Interval Normal [...] 06/17/2022 8:25 AM CDT us Marcelina Lo APPLIANCE COUNSELOR LAB BLOOD ORDERABLES Final Re sult [facility] [place] [address] * (ABNORMAL) Differential, auto (06/17/2022 8:02 AM CDT) [facility] Neutrophil abs 5.2 1.7 - 6.5 K/cumm [facility] Imm gran abs 0.1 0.0 - 0.1 K/cumm [facility] Lymphocyte abs 1.6 0.8 - 3.3 K/cumm [facility] Monocyte abs 1.3(H) 0.2 - 0.8 K/cumm [facility] Eosinophil abs 0.2 0.0 - 0.5 K/cumm [facility] Basophil abs 0.1 0.0 - 0.1 K/cumm [facility] Neutrophil pct 61.7 % [facility] Comment: Interpretive Data Percent cell count reference ranges are not reported, since discordance with absolute values may lead to misinterpretation of CBC data. Current Interpretive Data was last revised on 2017. Imm gran pct 1.3 % [facility] Comment: Interpretive Data Percent cell count reference ranges are not reported, since discordance with absolute values may lead to misinterpretation of CBC data. Current Interpretive Data was last revised on 2017. Lymphocyte pct 18.6 % [facility] Comment: Interpretive Data Percent cell count reference ranges are not reported, since discordance with absolute values may lead to misinterpretation of CBC data. Current Interpretive Data was last revised on 2017. Monocyte pct 15.2 % [facility] Comment: Interpretive Data Percent cell count reference ranges are not reported, since discordance with absolute values may lead to misinterpretation of CBC data. Current Interpretive Data was last revised on 2017. Eosinophil pct 2.6 % [facility] Comment: Interpretive Data Percent cell count reference ranges are not reported, since discordance with absolute values may lead to misinterpretation of CBC data. Current Interpretive Data was last revised on 2017. Basophil pct 0.6 % [facility] Comment: Interpretive Data Percent cell count reference ranges are not reported, since discordance with absolute values may lead to misinterpretation of CBC data. Current Interpretive Data was last revised on 2017. Blood 06/17/2022 8:02 AM CDT 06/17/2022 8:25 AM CDT us Marcelina Lo APPLIANCE COUNSELOR LAB BLOOD ORDERABLES Final Re sult [facility] [place] [address] * (ABNORMAL) Magnesium (06/17/2022 8:02 AM CDT) Magnesium 2.9(H) 1.4 - 2.5 mg/dL [facility] Blood 06/17/2022 8:02 AM CDT 06/17/2022 8:25 AM CDT us Marcelina Lo APPLIANCE COUNSELOR LAB BLOOD ORDERABLES Final Re sult [facility] [place] [address] * (ABNORMAL) Comprehensive metabolic panel (06/17/2022 8:02 AM CDT) Sodium 140 135 - 145 mmol/L [facility] Potassium, pl 3.9 3.3 - 4.9 mmol/L [facility] Chloride 104 97 - 110 mmol/L [facility] CO2 24 22 - 32 mmol/L [facility] Anion gap 12 2 - 15 mmol/L [facility] BUN 41(H) 8 - 25 mg/dL [facility] Creatinine 5.16(H) 0.80 - 1.30 mg/dL [facility] Glucose 206(H) 70 - 199 mg/dL [facility] Comment: Interpretive Data Fasting glucose >/= [...] 2017. Calcium 9.1 8.5 - 10.3 mg/dL [facility] Bilirubin, total 0.4 0.1 - 1.2 mg/dL [facility] Protein, pl 6.9 6.5 - 8.5 g/dL [facility] Albumin 3.0(L) 3.5 - 5.0 g/dL [facility] Alk phos 199(H) 40 - 130 Units/L [facility] ALT 35 7 - 55 Units/L [facility] AST 43 10 - 50 Units/L [facility] Blood 06/17/2022 8:02 AM CDT 06/17/2022 8:25 AM CDT Marcelina Lo APPLIANCE COUNSELOR LAB BLOOD ORDERABLES Final Re sult Performing Organization Address City/[facility]/ZIP Co de Phone Number [facility] [place] [address] * (ABNORMAL) CBC with auto differential (06/17/2022 8:02 AM CDT) WBC 8.5 3.8 - 9.9 K/cumm [facility] Hgb 7.9(L) 13.0 - 17.5 g/dL [facility] Hct 24.6(L) 38.9 - 50.3 % [facility] Plt 262 150 - 400 K/cumm [facility] MPV 10.1 9.1 - 12.3 fL [facility] RBC 2.55(L) 4.30 - 5.80 M/cumm [facility] MCV 96.5(H) 81.3 - 96.4 fL [facility] MCH 31.0 27.1 - 33.3 pg [facility] MCHC 32.1(L) 32.3 - 35.7 g/dL [facility] RDW CV 15.6(H) 11.1 - 14.9 % [facility] RDW SD 49.9(H) 35.7 - 48.1 fL [facility] NRBC abs 0.00 0.00 - 0.01 K/cumm [facility] Blood 06/17/2022 8:02 AM CDT 06/17/2022 8:25 AM CDT Marcelina Lo APPLIANCE COUNSELOR LAB BLOOD ORDERABLES Final Re sult Performing Organization Address City/[facility]/ZIP Co de Phone Number [facility] [place] [address] * (ABNORMAL) POCT glucose (06/17/2022 7:37 AM CDT) [facility] Glucose, POC 202(H) 70 - 199 mg/dL [facility] Blood 06/17/2022 7:37 AM CDT 06/17/2022 7:37 AM CDT Catherine Adams MD LAB POCT ORDERABLES - DEVIC E Final Result Performing Organization Address City/[facility]/[place] [address] * (ABNORMAL) aPTT (06/17/2022 6:14 AM CDT) [facility] aPTT 64(H) 27 - 37 sec [facility] Comment: Interpretive Data Therapeutic heparin range: 60.0 - 94.0 seconds. Based on correlation with therapeutic heparin activity range of 0.3-0.7 Units/mL. Current interpretive data was last revised on 2020. Blood 06/17/2022 6:14 AM CDT 06/17/2022 7:27 AM CDT Narrative [facility] - 06/17/2022 7:50 AM CDT Draw STAT PTT 6 hrs after initiation of heparin infusion, draw STAT PTT 6 hours after each dose/rate change, and every 6 hours until 2 consecutive PTTs are within therapeutic range. Once two consecutive PTT's are therapeutic (60-94.9 seconds), then draw PTT every AM until heparin is discontinued. us Catherine Adams MD LAB BLOOD ORDERABLES Final Result [facility] [place] [address] * (ABNORMAL) POCT glucose (06/17/2022 6:13 AM CDT) [facility] Glucose, POC 234(H) 70 - 199 mg/dL [facility] Blood 06/17/2022 6:13 AM CDT 06/17/2022 6:13 AM CDT us Catherine Adams MD LAB POCT ORDERABLES - DEVIC E Final Result [facility] [place] [address] * XR Chest 1 View (06/17/2022 5:29 [...] Glucose, POC 176 70 - 199 mg/dL [facility] Blood 06/17/2022 4:53 AM CDT 06/17/2022 4:53 AM CDT Catherine Adams MD LAB POCT ORDERABLES - DEVIC E Final Result Performing Organization Address [facility] de Phone Number [facility] [place] [address] * (ABNORMAL) Blood gas, arterial (06/17/2022 3:46 AM CDT) [facility] pH, Art 7.32(L) 7.35 - 7.45 [facility] PCO2, Arterial 44 35 - 45 mmHg [facility] PO2, Arterial 93 83 - 108 mmHg [facility] HCO3 Art (Calculated) 24 20 - 30 mmol/L [facility] BE, art -3 mmol/L [facility] Comment: Interpretive Data No Reference Range Established Current Interpretive Data was last revised on 2017 O2 Sat Art (Measured) 96(H) 90 - 95 % [facility] Blood 06/17/2022 3:46 AM CDT 06/17/2022 3:52 AM CDT Marcelina Lo NP LAB BLOOD ORDERABLES Final Re sult Performing Organization Address [facility] de Phone Number [facility] [place] [address] * POCT glucose (06/17/2022 3:44 AM CDT) Glucose, POC 94 70 - 199 mg/dL [facility] Blood 06/17/2022 3:44 AM CDT 06/17/2022 3:44 AM CDT us Catherine Adams MD LAB POCT ORDERABLES - DEVIC E Final Result Performing Organization Address City/[facility] Co de Phone Number [facility] [place] [address] * POCT glucose (06/17/2022 2:52 AM CDT) Glucose, POC 119 70 - 199 mg/dL [facility] Blood 06/17/2022 2:52 AM CDT 06/17/2022 2:52 AM CDT Catherine Adams MD LAB POCT ORDERABLES - DEVIC E Final Result Performing Organization Address City/[facility] Co de Phone Number [facility] [place] [address] * POCT glucose (06/17/2022 1:52 AM CDT) Glucose, POC 127 70 - 199 mg/dL [facility] Blood 06/17/2022 1:52 AM CDT 06/17/2022 1:52 AM CDT Catherine Adams MD LAB POCT ORDERABLES - DEVIC E Final Result Performing Organization Address City/[facility] Co de Phone Number [facility] [place] [address] * POCT glucose (06/17/2022 12:36 AM CDT) Glucose, POC 165 70 - 199 mg/dL [facility] Blood 06/17/2022 12:3 6 AM CDT 06/17/2022 12:36 AM CDT Catherine Adams MD LAB POCT ORDERABLES - DEVIC E Final Result Performing Organization Address [facility] Co de Phone Number [facility] [place] [address] * (ABNORMAL) aPTT (06/17/2022 12:36 AM CDT) aPTT 67(H) 27 - 37 sec [facility] Comment: Interpretive Data Therapeutic heparin range: 60.0 - 94.0 seconds. Based on correlation with therapeutic heparin activity range of 0.3-0.7 Units/mL. Current interpretive data was last revised on 2020. Blood 06/17/2022 12:3 6 AM CDT 06/17/2022 1:04 AM CDT Narrative [facility] - 06/17/2022 1:09 AM CDT Draw [...] BLOOD ORDERABLES Final Result Performing Organization Address [facility] de Phone Number [facility] [place] [address] * (ABNORMAL) Blood gas, arterial (06/16/2022 11:19 PM CDT) pH, Art 7.38 7.35 - 7.45 [facility] PCO2, Arterial 37 35 - 45 mmHg [facility] PO2, Arterial 99 83 - 108 mmHg [facility] HCO3 Art (Calculated) 22 20 - 30 mmol/L [facility] BE, art -3 mmol/L [facility] Comment: Interpretive Data No Reference Range Established Current Interpretive Data was last revised on 2017 O2 Sat Art (Measured) 97(H) 90 - 95 % [facility] Blood 06/16/2022 11:1 9 PM CDT 06/16/2022 11:24 PM CDT Marcelina Lo NP LAB BLOOD ORDERABLES Final Re sult Performing Organization Address [facility] Co de Phone Number [facility] [place] [address] * POCT glucose (06/16/2022 11:11 PM CDT) Glucose, POC 172 70 - 199 mg/dL [facility] Blood 06/16/2022 11:1 1 PM CDT 06/16/2022 11:11 PM CDT Catherine Adams MD LAB POCT ORDERABLES - DEVIC E Final Result Performing Organization Address [facility] Co de Phone Number [facility] [place] [address] * POCT glucose (06/16/2022 10:07 PM CDT) Glucose, POC 166 70 - 199 mg/dL [facility] Blood 06/16/2022 10:0 7 PM CDT 06/16/2022 10:07 PM CDT Catherine Adams MD LAB POCT ORDERABLES - DEVIC E Final Result Performing Organization Address City/[facility] Co de Phone Number [facility] [place] [address] * XR Chest 1 View (06/16/2022 9:03 [...] * (ABNORMAL) eGFR (06/16/2022 8:52 PM CDT) [facility] eGFR 14(L) 90 - 130 mL/min/1. 73 m2 [facility] Comment: Interpretive Data Reference Interval Normal ?>/= [...] 06/16/2022 9:10 PM CDT us Marcelina Lo APPLIANCE COUNSELOR LAB BLOOD ORDERABLES Final Re sult [facility] [place] [address] * (ABNORMAL) Differential, auto (06/16/2022 8:52 PM CDT) Neutrophil abs 5.4 1.7 - 6.5 K/cumm [facility] Imm gran abs 0.2(H) 0.0 - 0.1 K/cumm [facility] Lymphocyte abs 1.0 0.8 - 3.3 K/cumm [facility] Monocyte abs 1.1(H) 0.2 - 0.8 K/cumm [facility] Eosinophil abs 0.2 0.0 - 0.5 K/cumm [facility] Basophil abs 0.0 0.0 - 0.1 K/cumm [facility] Neutrophil pct 68.6 % [facility] Comment: Interpretive Data Percent cell count reference ranges are not reported, since discordance with absolute values may lead to misinterpretation of CBC data. Current Interpretive Data was last revised on 2017. Imm gran pct 2.0 % [facility] Comment: Interpretive Data Percent cell count reference ranges are not reported, since discordance with absolute values may lead to misinterpretation of CBC data. Current Interpretive Data was last revised on 2017. Lymphocyte pct 12.9 % [facility] Comment: Interpretive Data Percent cell count reference ranges are not reported, since discordance with absolute values may lead to misinterpretation of CBC data. Current Interpretive Data was last revised on 2017. Monocyte pct 14.3 % [facility] Comment: Interpretive Data Percent cell count reference ranges are not reported, since discordance with absolute values may lead to misinterpretation of CBC data. Current Interpretive Data was last revised on 2017. Eosinophil pct 1.9 % [facility] Comment: Interpretive Data Percent cell count reference ranges are not reported, since discordance with absolute values may lead to misinterpretation of CBC data. Current Interpretive Data was last revised on 2017. Basophil pct 0.3 % [facility] Comment: Interpretive Data Percent cell count reference ranges are not reported, since discordance with absolute values may lead to misinterpretation of CBC data. Current Interpretive Data was last revised on 2017. Blood 06/16/2022 8:52 PM CDT 06/16/2022 9:02 PM CDT us Marcelina Lo NP LAB BLOOD ORDERABLES Final Re sult [facility] [place] [address] * Lactate (06/16/2022 8:52 PM CDT) Lactate 1.1 0.7 - 2.0 mmol/L [facility] Blood 06/16/2022 8:52 PM CDT 06/16/2022 9:10 PM CDT us Catherine Adams MD LAB BLOOD ORDERABLES Final Result [facility] [place] [address] * (ABNORMAL) Triglycerides (06/16/2022 8:52 PM CDT) Triglycerides 253(H) <=149 mg/dL [facility] Comment: Interpretive Data Ages < [...] PM CDT 06/16/2022 9:10 PM CDT Narrative [facility] - 06/16/2022 9:44 PM CDT While on propofol infusion. us Catherine Adams MD LAB BLOOD ORDERABLES Final Result Performing Organization Address [facility] Co de Phone Number [facility] [place] [address] * (ABNORMAL) Phosphorus (06/16/2022 8:52 PM CDT) Phosphorus, pl 5.4(H) 2.3 - 4.5 mg/dL [facility] Blood 06/16/2022 8:52 PM CDT 06/16/2022 9:10 PM CDT Marcelina Lo APPLIANCE COUNSELOR LAB BLOOD ORDERABLES Final Re sult Performing Organization Address [facility] de Phone Number [facility] [place] [address] * Beta-hydroxybutyrate (06/16/2022 8:52 PM CDT) Beta-Hydroxybut yrate 0.1 0.0 - 0.5 mmol/L [facility] Blood 06/16/2022 8:52 PM CDT 06/16/2022 9:02 PM CDT Marcelina Lo APPLIANCE COUNSELOR LAB BLOOD ORDERABLES Edited R esult - Final Performing Organization Address [facility] Co de Phone Number [facility] [place] [address] * Lipase (06/16/2022 8:52 PM CDT) Lipase 26 10 - 99 Units/L [facility] Blood 06/16/2022 8:52 PM CDT 06/16/2022 9:10 PM CDT us Marcelina Lo APPLIANCE COUNSELOR LAB BLOOD ORDERABLES Final Re sult Performing Organization Address [facility] de Phone Number [facility] [place] [place] [address] * (ABNORMAL) Magnesium (06/16/2022 8:52 PM CDT) Magnesium 3.0(H) 1.4 - 2.5 mg/dL [facility] Blood 06/16/2022 8:52 PM CDT 06/16/2022 9:10 PM CDT us Marcelina oL APPLIANCE COUNSELOR LAB BLOOD ORDERABLES Final Re sult [facility] [place] [address] * (ABNORMAL) Comprehensive metabolic panel (06/16/2022 8:52 PM CDT) Sodium 140 135 - 145 mmol/L [facility] Potassium, pl 4.0 3.3 - 4.9 mmol/L [facility] Chloride 104 97 - 110 mmol/L [facility] CO2 25 22 - 32 mmol/L [facility] Anion gap 11 2 - 15 mmol/L [facility] BUN 36(H) 8 - 25 mg/dL [facility] Creatinine 4.65(H) 0.80 - 1.30 mg/dL [facility] Glucose 197 70 - 199 mg/dL [facility] Comment: Interpretive Data Fasting glucose >/= [...] 9.3 8.5 - 10.3 mg/dL [facility] Bilirubin, total 0.4 0.1 - 1.2 mg/dL [facility] Protein, pl 6.5 6.5 - 8.5 g/dL [facility] Albumin 2.7(L) 3.5 - 5.0 g/dL [facility] Alk phos 197(H) 40 - 130 Units/L [facility] ALT 35 7 - 55 Units/L [facility] AST 36 10 - 50 Units/L [facility] Blood 06/16/2022 8:52 PM CDT 06/16/2022 9:10 PM CDT Marcelina Lo APPLIANCE COUNSELOR LAB BLOOD ORDERABLES Final Re sult Performing Organization Address City/[facility]/ZIP Co de Phone Number [facility] Department [place] [address] * (ABNORMAL) CBC with auto differential (06/16/2022 8:52 PM CDT) Pathologist [facility] WBC 7.9 3.8 - 9.9 K/cumm [facility] Hgb 7.4(L) 13.0 - 17.5 g/dL [facility] Hct 22.8(L) 38.9 - 50.3 % [facility] Plt 214 150 - 400 K/cumm [facility] MPV 10.1 9.1 - 12.3 fL [facility] RBC 2.41(L) 4.30 - 5.80 M/cumm [facility] MCV 94.6 81.3 - 96.4 fL [facility] MCH 30.7 27.1 - 33.3 pg [facility] MCHC 32.5 32.3 - 35.7 g/dL [facility] RDW CV 14.9 11.1 - 14.9 % [facility] RDW SD 47.8 35.7 - 48.1 fL [facility] NRBC abs 0.00 0.00 - 0.01 K/cumm [facility] Blood 06/16/2022 8:52 PM CDT 06/16/2022 9:02 PM CDT Marcelina Lo APPLIANCE COUNSELOR LAB BLOOD ORDERABLES Final Re sult [facility] [place] [address] * (ABNORMAL) POCT glucose (06/16/2022 8:06 PM CDT) Glucose, POC 230(H) 70 - 199 mg/dL [facility] Blood 06/16/2022 8:06 PM CDT 06/16/2022 8:06 PM CDT Catherine Adams MD LAB POCT ORDERABLES - DEVIC E Final Result Performing Organization Address [facility] de Phone Number [facility] [place] [address] * (ABNORMAL) POCT glucose (06/16/2022 7:16 PM CDT) Glucose, POC 250(H) 70 - 199 mg/dL [facility] Blood 06/16/2022 7:16 PM CDT 06/16/2022 7:16 PM CDT Catherine Adams MD LAB POCT ORDERABLES - DEVIC E Final Result Performing Organization Address [facility] de Phone Number [facility] [place] [address] * (ABNORMAL) POCT glucose (06/16/2022 5:52 PM CDT) Glucose, POC 328(H) 70 - 199 mg/dL [facility] Blood 06/16/2022 5:52 PM CDT 06/16/2022 5:52 PM CDT Catherine Adams MD LAB POCT ORDERABLES - DEVIC E Final Result Performing Organization Address [facility] [place] [address] * (ABNORMAL) aPTT (06/16/2022 4:49 PM CDT) aPTT 58(H) 27 - 37 sec [facility] Comment: Interpretive Data Therapeutic heparin range: 60.0 - 94.0 seconds. Based on correlation with therapeutic heparin activity range of 0.3-0.7 Units/mL. Current interpretive data was last revised on 2020. Blood 06/16/2022 4:49 PM CDT 06/16/2022 4:55 PM CDT Narrative [facility] - 06/16/2022 5:35 PM CDT Draw [...] ORDERABLES Final Result Performing Organization Address City/[facility]/ZIP Co de Phone Number [facility] [place] [address] * (ABNORMAL) POCT glucose (06/16/2022 4:41 PM CDT) Glucose, POC 305(H) 70 - 199 mg/dL [facility] Blood 06/16/2022 4:41 PM CDT 06/16/2022 4:41 PM CDT Catherine Adams MD LAB POCT ORDERABLES - DEVIC E Final Result Performing Organization Address [facility] Co de Phone Number [facility] [place] [address] * (ABNORMAL) Blood gas, arterial (06/16/2022 3:31 PM CDT) pH, Art 7.41 7.35 - 7.45 [facility] PCO2, Arterial 36 35 - 45 mmHg [facility] PO2, Arterial 82(L) 83 - 108 mmHg [facility] HCO3 Art (Calculated) 23 20 - 30 mmol/L [facility] BE, art -1 mmol/L [facility] Comment: Interpretive Data No Reference Range Established Current Interpretive Data was last revised on 2017 O2 Sat Art (Measured) 96(H) 90 - 95 % [facility] Blood 06/16/2022 3:31 PM CDT 06/16/2022 3:38 PM CDT Marcelina Lo APPLIANCE COUNSELOR LAB BLOOD ORDERABLES Final Re sult Performing Organization Address [facility] de Phone Number [facility] [place] [address] * (ABNORMAL) POCT glucose (06/16/2022 3:27 PM CDT) Glucose, POC 316(H) 70 - 199 mg/dL [facility] Blood 06/16/2022 3:27 PM CDT 06/16/2022 3:27 PM CDT Catherine Adams MD LAB POCT ORDERABLES - DEVIC E Final Result Performing Organization Address [facility] de Phone Number [facility] [place] [address] * (ABNORMAL) POCT glucose (06/16/2022 1:00 PM CDT) Glucose, POC 327(H) 70 - 199 mg/dL [facility] Blood 06/16/2022 1:00 PM CDT 06/16/2022 1:00 PM CDT Catherine Adams MD LAB POCT ORDERABLES - DEVIC E Final Result Performing Organization Address [facility] de Phone Number [facility] [place] [address] * (ABNORMAL) eGFR (06/16/2022 12:57 PM CDT) eGFR 15(L) 90 - 130 mL/min/1. 73 m2 [facility] Comment: Interpretive Data Reference Interval Normal [...] Adams MD LAB BLOOD ORDERABLES Final Result [facility] [place] [address] * (ABNORMAL) Basic metabolic panel (06/16/2022 12:57 PM CDT) Sodium 137 135 - 145 mmol/L [facility] Potassium, pl 3.9 3.3 - 4.9 mmol/L [facility] Chloride 101 97 - 110 mmol/L [facility] CO2 26 22 - 32 mmol/L [facility] Anion gap 10 2 - 15 mmol/L [facility] BUN 33(H) 8 - 25 mg/dL [facility] Creatinine 4.34(H) 0.80 - 1.30 mg/dL [facility] Glucose 340(H) 70 - 199 mg/dL [facility] Comment: Interpretive Data Fasting glucose >/= [...] 2017. Calcium 9.0 8.5 - 10.3 mg/dL [facility] Blood 06/16/2022 12:5 7 PM CDT 06/16/2022 2:29 PM CDT us Catherine Adams MD LAB BLOOD ORDERABLES Final Result Performing Organization Address [facility] de Phone Number [facility] Department [place] [address] * (ABNORMAL) Blood gas, arterial (06/16/2022 10:54 AM CDT) pH, Art 7.40 7.35 - 7.45 [facility] PCO2, Arterial 38 35 - 45 mmHg [facility] PO2, Arterial 66(L) 83 - 108 mmHg [facility] HCO3 Art (Calculated) 24 20 - 30 mmol/L [facility] BE, art -1 mmol/L [facility] Comment: Interpretive Data No Reference Range Established Current Interpretive Data was last revised on 2017 O2 Sat Art (Measured) 92 90 - 95 % [facility] Blood 06/16/2022 10:5 4 AM CDT 06/16/2022 11:01 AM CDT us Marcelina Lo NP LAB BLOOD ORDERABLES Final Re sult Performing Organization Address [facility] Co de Phone Number [facility] Department [place] [address] * (ABNORMAL) POCT glucose (06/16/2022 10:50 AM CDT) [facility] Glucose, POC 393(H) 70 - 199 mg/dL [facility] Blood 06/16/2022 10:5 0 AM CDT 06/16/2022 10:50 AM CDT Catherine Adams MD LAB POCT ORDERABLES - DEVIC E Final Result Performing Organization Address [facility]/[place] [address] * (ABNORMAL) aPTT (06/16/2022 9:14 AM CDT) [facility] aPTT 54(H) 27 - 37 sec [facility] Comment: Interpretive Data Therapeutic heparin range: 60.0 - 94.0 seconds. Based on correlation with therapeutic heparin activity range of 0.3-0.7 Units/mL. Current interpretive data was last revised on 2020. Blood 06/16/2022 9:14 AM CDT 06/16/2022 9:33 AM CDT Narrative [facility] - 06/16/2022 9:58 AM CDT Draw [...] ORDERABLES Final Result Performing Organization Address City/[facility]/ZIP Co de Phone Number [facility] [place] [address] * Beta-hydroxybutyrate (06/16/2022 7:54 AM CDT) Beta-Hydroxybut yrate 0.1 0.0 - 0.5 mmol/L [facility] Blood 06/16/2022 7:54 AM CDT 06/16/2022 8:10 AM CDT Catherine Adams MD LAB BLOOD ORDERABLES Final Result [facility] [place] [address] * (ABNORMAL) eGFR (06/16/2022 7:54 AM CDT) Pathologist [facility] eGFR 16(L) 90 - 130 mL/min/1. 73 m2 [facility] Comment: Interpretive Data Reference Interval Normal [...] 06/16/2022 8:06 AM CDT us Marcelina Lo APPLIANCE COUNSELOR LAB BLOOD ORDERABLES Final Re sult [facility] [place] [address] * (ABNORMAL) Differential, auto (06/16/2022 7:54 AM CDT) Neutrophil abs 6.3 1.7 - 6.5 K/cumm [facility] Imm gran abs 0.4(H) 0.0 - 0.1 K/cumm [facility] Lymphocyte abs 1.0 0.8 - 3.3 K/cumm [facility] Monocyte abs 1.2(H) 0.2 - 0.8 K/cumm [facility] Eosinophil abs 0.2 0.0 - 0.5 K/cumm [facility] Basophil abs 0.0 0.0 - 0.1 K/cumm [facility] Neutrophil pct 69.4 % [facility] Comment: Interpretive Data Percent cell count reference ranges are not reported, since discordance with absolute values may lead to misinterpretation of CBC data. Current Interpretive Data was last revised on 2017. Imm gran pct 4.3 % [facility] Comment: Interpretive Data Percent cell count reference ranges are not reported, since discordance with absolute values may lead to misinterpretation of CBC data. Current Interpretive Data was last revised on 2017. Lymphocyte pct 11.0 % [facility] Comment: Interpretive Data Percent cell count reference ranges are not reported, since discordance with absolute values may lead to misinterpretation of CBC data. Current Interpretive Data was last revised on 2017. [facility] pct 13.3 % [facility] Comment: Interpretive Data Percent cell count reference ranges are not reported, since discordance with absolute values may lead to misinterpretation of CBC data. Current Interpretive Data was last revised on 2017. Eosinophil pct 1.7 % [facility] Comment: Interpretive Data Percent cell count reference ranges are not reported, since discordance with absolute values may lead to misinterpretation of CBC data. Current Interpretive Data was last revised on 2017. Basophil pct 0.3 % [facility] Comment: Interpretive Data Percent cell count reference ranges are not reported, since discordance with absolute values may lead to misinterpretation of CBC data. Current Interpretive Data was last revised on 2017. Blood 06/16/2022 7:54 AM CDT 06/16/2022 8:06 AM CDT Marcelina Lo APPLIANCE COUNSELOR LAB BLOOD ORDERABLES Final Re sult Performing Organization Address [facility] Co de Phone Number [facility] Department [place] [address] * (ABNORMAL) Blood gas, arterial (06/16/2022 7:54 AM CDT) pH, Art 7.44 7.35 - 7.45 [facility] PCO2, Arterial 35 35 - 45 mmHg [facility] PO2, Arterial 58(L) 83 - 108 mmHg [facility] HCO3 Art (Calculated) 25 20 - 30 mmol/L [facility] BE, art 0 mmol/L [facility] Comment: Interpretive Data No Reference Range Established Current Interpretive Data was last revised on 2017 O2 Sat Art (Measured) 90 90 - 95 % [facility] Blood 06/16/2022 7:54 AM CDT 06/16/2022 8:01 AM CDT Catherine Adams MD LAB BLOOD ORDERABLES Final Result Performing Organization Address [facility] Co de Phone Number [facility] Department [place] [address] * (ABNORMAL) Magnesium (06/16/2022 7:54 AM CDT) Magnesium 2.9(H) 1.4 - 2.5 mg/dL [facility] Blood 06/16/2022 7:54 AM CDT 06/16/2022 8:06 AM CDT Marcelina Lo APPLIANCE COUNSELOR LAB BLOOD ORDERABLES Final Re sult [facility] [place] [address] * (ABNORMAL) Comprehensive metabolic panel (06/16/2022 7:54 AM CDT) Sodium 136 135 - 145 mmol/L [facility] Potassium, pl 4.2 3.3 - 4.9 mmol/L [facility] Chloride 100 97 - 110 mmol/L [facility] CO2 26 22 - 32 mmol/L [facility] Anion gap 10 2 - 15 mmol/L [facility] BUN 33(H) 8 - 25 mg/dL [facility] Creatinine 4.13(H) 0.80 - 1.30 mg/dL [facility] Glucose 434(H) 70 - 199 mg/dL [facility] Comment: Interpretive Data Fasting glucose >/= [...] 2017. Calcium 8.9 8.5 - 10.3 mg/dL [facility] Bilirubin, total 0.4 0.1 - 1.2 mg/dL [facility] Protein, pl 6.2(L) 6.5 - 8.5 g/dL [facility] Albumin 3.1(L) 3.5 - 5.0 g/dL [facility] Alk phos 218(H) 40 - 130 Units/L [facility] ALT 36 7 - 55 Units/L [facility] AST 42 10 - 50 Units/L [facility] Blood 06/16/2022 7:54 AM CDT 06/16/2022 8:06 AM CDT Marcelina Lo APPLIANCE COUNSELOR LAB BLOOD ORDERABLES Final Re sult Performing Organization Address [facility] Co de Phone Number [facility] [place] [address] * (ABNORMAL) CBC with auto differential (06/16/2022 7:54 AM CDT) WBC 9.1 3.8 - 9.9 K/cumm [facility] Hgb 7.5(L) 13.0 - 17.5 g/dL [facility] Hct 22.8(L) 38.9 - 50.3 % [facility] Plt 214 150 - 400 K/cumm [facility] MPV 10.1 9.1 - 12.3 fL [facility] RBC 2.42(L) 4.30 - 5.80 M/cumm [facility] MCV 94.2 81.3 - 96.4 fL [facility] MCH 31.0 27.1 - 33.3 pg [facility] MCHC 32.9 32.3 - 35.7 g/dL [facility] RDW CV 14.6 11.1 - 14.9 % [facility] RDW SD 46.9 35.7 - 48.1 fL [facility] NRBC abs 0.02(H) 0.00 - 0.01 K/cumm [facility] Blood 06/16/2022 7:54 AM CDT 06/16/2022 8:06 AM CDT Marcelina Lo APPLIANCE COUNSELOR LAB BLOOD ORDERABLES Final Re sult [facility] [employer] [place], [place] [id number] * (ABNORMAL) POCT glucose (06/16/2022 7:52 AM CDT) Glucose, POC 408(H) 70 - 199 mg/dL [facility] Blood 06/16/2022 7:52 AM CDT 06/16/2022 7:52 AM CDT Catherine Adams MD LAB POCT ORDERABLES - DEVIC E Final Result Performing Organization Address City/[facility] Co de Phone Number [facility] [place] [address] * (ABNORMAL) POCT glucose (06/16/2022 4:52 AM CDT) Glucose, POC 425(H) 70 - 199 mg/dL [facility] Blood 06/16/2022 4:52 AM CDT 06/16/2022 4:52 AM CDT Catherine Adams MD LAB POCT ORDERABLES - DEVIC E Final Result Performing Organization Address [facility] de Phone Number [facility] [place] [address] * XR Chest 1 View (06/16/2022 4:43 AM CDT) Anatomical Region Laterality Modality Body, Chest N/A Computed Radiogr aphy 06/16/2022 9:29 AM CDT Impressions 06/16/2022 11:17 AM CDT Comparison is made to 06/15/2022. Endotracheal tube tip is difficult to see but likely terminates approximately 6.4 cm above the boni. Gastric tube terminates below left diaphragm and out of the [id number]. There are small lung volumes. Airspace opacity [...] below left diaphragm and out of the [id number]. There are small lung volumes. Airspace opacity [...] Glucose, POC 239(H) 70 - 199 mg/dL [facility] Blood 06/16/2022 12:0 1 AM CDT 06/16/2022 12:01 AM CDT Catherine Adams MD LAB POCT ORDERABLES - DEVIC E Final Result [facility] [place] [address] * (ABNORMAL) aPTT (06/16/2022 12:01 AM CDT) aPTT 53(H) 27 - 37 sec [facility] Comment: Interpretive Data Therapeutic heparin range: 60.0 - 94.0 seconds. Based on correlation with therapeutic heparin activity range of 0.3-0.7 Units/mL. Current interpretive data was last revised on 2020. Blood 06/16/2022 12:0 1 AM CDT 06/16/2022 12:14 AM CDT Narrative [facility] 06/16/[facility]22 12:36 AM CDT Draw STAT PTT 6 hrs after initiation of heparin infusion, draw STAT PTT 6 hours after each dose/rate change, and every 6 hours until 2 consecutive PTTs are within therapeutic range. Once two consecutive PTT's are therapeutic (60-94.9 seconds), then draw PTT every AM until heparin is discontinued. Catherine Adams MD LAB BLOOD ORDERABLES Final Result [facility] [place] [address] * (ABNORMAL) CBC without differential (06/16/2022 12:01 AM CDT) WBC 11.1(H) 3.8 - 9.9 K/cumm [facility] Hgb 7.4(L) 13.0 - 17.5 g/dL [facility] Hct 22.6(L) 38.9 - 50.3 % [facility] Plt 215 150 - 400 K/cumm [facility] MPV 10.3 9.1 - 12.3 fL [facility] RBC 2.38(L) 4.30 - 5.80 M/cumm [facility] MCV 95.0 81.3 - 96.4 fL [facility] MCH 31.1 27.1 - 33.3 pg [facility] MCHC 32.7 32.3 - 35.7 g/dL [facility] RDW CV 14.4 11.1 - 14.9 % [facility] RDW SD 46.4 35.7 - 48.1 fL [facility] NRBC abs 0.05(H) 0.00 - 0.01 K/cumm [facility] Blood 06/16/2022 12:0 1 AM CDT 06/16/2022 12:22 AM CDT Narrative [facility] - 06/16/2022 12:29 AM CDT While on heparin infusion Catherine Adams MD LAB BLOOD ORDERABLES Final Result [facility] [place] [address] * (ABNORMAL) eGFR (06/15/2022 8:51 PM CDT) [facility] eGFR 17(L) 90 - 130 mL/min/1. 73 [...] 06/15/2022 9:34 PM CDT us Marcelina Lo APPLIANCE COUNSELOR LAB BLOOD ORDERABLES Final Re sult [facility] [place] [address] * (ABNORMAL) Differential, auto (06/15/2022 8:51 PM CDT) [facility] Neutrophil abs 8.6(H) 1.7 - 6.5 K/cumm [facility] Imm gran abs 0.8(H) 0.0 - 0.1 K/cumm [facility] Lymphocyte abs 1.4 0.8 - 3.3 K/cumm [facility] Monocyte abs 1.7(H) 0.2 - 0.8 K/cumm [facility] Eosinophil abs 0.2 0.0 - 0.5 K/cumm [facility] Basophil abs 0.0 0.0 - 0.1 K/cumm [facility] Neutrophil pct 67.7 % [facility] Comment: Interpretive Data Percent cell count reference ranges are not reported, since discordance with absolute values may lead to misinterpretation of CBC data. Current Interpretive Data was last revised on 2017. Imm gran pct 6.1 % [facility] Comment: Interpretive Data Percent cell count reference ranges are not reported, since discordance with absolute values may lead to misinterpretation of CBC data. Current Interpretive Data was last revised on 2017. Lymphocyte pct 11.2 % [facility] Comment: Interpretive Data Percent cell count reference ranges are not reported, since discordance with absolute values may lead to misinterpretation of CBC data. Current Interpretive Data was last revised on 2017. Monocyte pct 13.3 % [facility] Comment: Interpretive Data Percent cell count reference ranges are not reported, since discordance with absolute values may lead to misinterpretation of CBC data. Current Interpretive Data was last revised on 2017. Eosinophil pct 1.5 % [facility] Comment: Interpretive Data Percent cell count reference ranges are not reported, since discordance with absolute values may lead to misinterpretation of CBC data. Current Interpretive Data was last revised on 2017. Basophil pct 0.2 % [facility] Comment: Interpretive Data Percent cell count reference ranges are not reported, since discordance with absolute values may lead to misinterpretation of CBC data. Current Interpretive Data was last revised on 2017. Blood 06/15/2022 8:51 PM CDT 06/15/2022 9:34 PM CDT us Marcelina Lo APPLIANCE COUNSELOR LAB BLOOD ORDERABLES Final Re sult Performing Organization Address [facility] Co de Phone Number [facility] [place] [address] * (ABNORMAL) Triglycerides (06/15/2022 8:51 PM CDT) Pathologist [facility] Triglycerides 227(H) <=149 mg/dL [facility] Comment: Interpretive Data Ages < [...] PM CDT 06/15/2022 9:33 PM CDT Narrative [facility] - 06/15/2022 10:00 PM CDT While on propofol infusion. Catherine Adams MD LAB BLOOD ORDERABLES Final Result Performing Organization Address [facility] Co de Phone Number [facility] [place] [address] * (ABNORMAL) Phosphorus (06/15/2022 8:51 PM CDT) Pathologist [facility] Phosphorus, pl 5.0(H) 2.3 - 4.5 mg/dL [facility] Blood 06/15/2022 8:51 PM CDT 06/15/2022 9:33 PM CDT Marcelina Lo APPLIANCE COUNSELOR LAB BLOOD ORDERABLES Final Re sult Performing Organization Address City/[facility]/ZIP Co de Phone Number [facility] [place] [address] * Beta-hydroxybutyrate (06/15/2022 8:51 PM CDT) Pathologist [facility] Beta-Hydroxybut yrate 0.2 0.0 - 0.5 mmol/L [facility] Blood 06/15/2022 8:51 PM CDT 06/15/2022 9:26 PM CDT Marcelina Lo APPLIANCE COUNSELOR LAB BLOOD ORDERABLES Edited R esult - Final Performing Organization Address [facility]/ZIP Co de Phone Number [facility] [place] [address] * Lipase (06/15/2022 8:51 PM CDT) Pathologist [facility] Lipase 27 10 - 99 Units/L [facility] Blood 06/15/2022 8:51 PM CDT 06/15/2022 9:33 PM CDT Marcelina Lo APPLIANCE COUNSELOR LAB BLOOD ORDERABLES Final Re sult [facility] [place] [address] * (ABNORMAL) Magnesium (06/15/2022 8:51 PM CDT) Magnesium 3.2(H) 1.4 - 2.5 mg/dL [facility] Blood 06/15/2022 8:51 PM CDT 06/15/2022 9:34 PM CDT us Marcelina Lo APPLIANCE COUNSELOR LAB BLOOD ORDERABLES Final Re sult [facility] [place] [address] * (ABNORMAL) Comprehensive metabolic panel (06/15/2022 8:51 PM CDT) Sodium 137 135 - 145 mmol/L [facility] Potassium, pl 4.6 3.3 - 4.9 mmol/L [facility] Chloride 101 97 - 110 mmol/L [facility] CO2 26 22 - 32 mmol/L [facility] Anion gap 10 2 - 15 mmol/L [facility] BUN 29(H) 8 - 25 mg/dL [facility] Creatinine 3.93(H) 0.80 - 1.30 mg/dL [facility] Glucose 179 70 - 199 mg/dL [facility] Comment: Interpretive Data Fasting glucose >/= [...] 9.5 8.5 - 10.3 mg/dL [facility] Bilirubin, total 0.5 0.1 - 1.2 mg/dL [facility] Protein, pl 6.5 6.5 - 8.5 g/dL [facility] Albumin 3.0(L) 3.5 - 5.0 g/dL [facility] Alk phos 235(H) 40 - 130 Units/L [facility] ALT 36 7 - 55 Units/L [facility] AST 50 10 - 50 Units/L [facility] Blood 06/15/2022 8:51 PM CDT 06/15/2022 9:34 PM CDT us Marcelina Lo APPLIANCE COUNSELOR LAB BLOOD ORDERABLES Final Re sult Performing Organization Address [facility] Co de Phone Number [facility] Department [place] [address] * (ABNORMAL) CBC with auto differential (06/15/2022 8:51 PM CDT) [facility] WBC 12.7(H) 3.8 - 9.9 K/cumm [facility] Hgb 7.2(L) 13.0 - 17.5 g/dL [facility] Hct 21.9(L) 38.9 - 50.3 % [facility] Plt 204 150 - 400 K/cumm [facility] MPV 10.4 9.1 - 12.3 fL [facility] RBC 2.30(L) 4.30 - 5.80 M/cumm [facility] MCV 95.2 81.3 - 96.4 fL [facility] MCH 31.3 27.1 - 33.3 pg [facility] MCHC 32.9 32.3 - 35.7 g/dL [facility] RDW CV 14.6 11.1 - 14.9 % [facility] RDW SD 47.4 35.7 - 48.1 fL [facility] NRBC abs 0.05(H) 0.00 - 0.01 K/cumm [facility] Blood 06/15/2022 8:51 PM CDT 06/15/2022 9:34 PM CDT us Marcelina Lo APPLIANCE COUNSELOR LAB BLOOD ORDERABLES Final Re sult Performing Organization Address [facility]/ZIP Co de Phone Number [facility] [place] [address] * POCT glucose (06/15/2022 8:49 PM CDT) Glucose, POC 183 70 - 199 mg/dL [facility] Blood 06/15/2022 8:49 PM CDT 06/15/2022 8:49 PM CDT Catherine Adams MD LAB POCT ORDERABLES - DEVIC E Final Result Performing Organization Address [facility] Co de Phone Number [facility] [place] [address] * C. difficile testing Stool (06/15/2022 6:15 PM CDT) C. diff result Negative, free toxin Negative , free toxin [facility] C. diff interp Negative for toxigenic Clostridioides (Clostridium) difficile. Analysis was performed using a glutatmate dehydrogenase antigen detection assay combined with a C. difficile toxin detection assay. [facility] Stool 06/15/2022 6:15 PM CDT 06/15/2022 8:14 PM CDT Narrative [facility] - 06/15/2022 11:02 PM CDT Testing for C. difficile is not recommended within 4 days of a negative result, 10 days of a positive, or 24 hours after laxative administration. If this order is clinically indicated, contact the lab and enter the passcode to complete this order.->[id number] Catherine Adams MD LAB MICROBIOLOGY - GENERAL ORDERABLES Final Result Performing Organization Address [facility] de Phone Number [facility] Department [place] [address] * VRE culture, surveillance Stool (06/15/2022 6:14 PM CDT) Report Final Report: Negative [facility] Stool 06/15/2022 6:14 PM CDT 06/15/2022 11:04 PM CDT Narrative [facility] - 06/18/2022 1:29 PM CDT Testing performed by [facility] ([phone]). us Catherine Adams MD LAB MICROBIOLOGY - GENERAL ORDERABLES Final Result Performing Organization Address City/[facility]/ZIP Co de Phone Number [facility] Department [place] [address] * (ABNORMAL) POCT glucose (06/15/2022 3:21 PM CDT) Glucose, POC 260(H) 70 - 199 mg/dL [facility] Blood 06/15/2022 3:21 PM CDT 06/15/2022 3:21 PM CDT Catherine Adams MD LAB POCT ORDERABLES - DEVIC E Final Result Performing Organization Address [facility] Co de Phone Number [facility] [place] [address] * (ABNORMAL) Blood gas, arterial (06/15/2022 11:21 AM CDT) Pathologist [facility] pH, Art 7.38 7.35 - 7.45 [facility] PCO2, Arterial 39 35 - 45 mmHg [facility] PO2, Arterial 100 83 - 108 mmHg [facility] HCO3 Art (Calculated) 23 20 - 30 mmol/L [facility] BE, art -2 mmol/L [facility] Comment: Interpretive Data No Reference Range Established Current Interpretive Data was last revised on 2017 O2 Sat Art (Measured) 98(H) 90 - 95 % [facility] Blood 06/15/2022 11:2 1 AM CDT 06/15/2022 11:32 AM CDT us Marcelina Lo NP LAB BLOOD ORDERABLES Final Re sult Performing Organization Address [facility]/ZIP Co de Phone Number [facility] [place] [address] * (ABNORMAL) POCT glucose (06/15/2022 11:20 AM CDT) Glucose, POC 332(H) 70 - 199 mg/dL [facility] Glucose comment 1 Glu2: RN/MD Notified [facility] Blood 06/15/2022 11:2 0 AM CDT 06/15/2022 11:20 AM CDT Catherine Adams MD LAB POCT ORDERABLES - DEVIC E Final Result [facility] [place] [address] * Respiratory pathogen panel Nasopharyngeal (06/15/2022 11:05 AM CDT) [facility] Influenza A RNA Not Detected Not Detected [facility] Influenza B RNA Not Detected Not Detected [facility] RSV RNA Not Detected Not Detected [facility] COVID-19 RNA Not Detected Not Detected [facility] Coronavirus 229E RNA Not Detected Not Detected [facility] Coronavirus HKU1 RNA Not Detected Not Detected [facility] Coronavirus NL63 RNA Not Detected Not Detected [facility] Coronavirus OC43 RNA Not Detected Not Detected [facility] Adenovirus DNA Not Detected Not Detected [facility] Metapneumovirus RNA Not Detected Not Detected [facility] Rhinovirus/Enterov irus RNA Not Detected Not Detected [facility] Parainfluenza 1 RNA Not Detected Not Detected [facility] Parainfluenza 2 RNA Not Detected Not Detected [facility] Parainfluenza 3 RNA Not Detected Not Detected [facility] Parainfluenza 4 RNA Not Detected Not Detected [facility] B. pertussis DNA Not Detected Not Detected [facility] B. parapertussis DNA Not Detected Not Detected [facility] C. pneumoniae DNA Not Detected Not Detected [facility] M. pneumoniae DNA Not Detected Not Detected [facility] Nasopharyngeal 06/15/2022 11 :05 AM CDT 06/15/2022 11:19 AM CDT Narrative [facility] - 06/15/2022 1:02 PM CDT Is the Patient experiencing symptoms consistent with COVID?->Unknown Reason for testing?->Symptomatic Surveillance testing for transplant patient?->No ??Interpretive Data The Onfan FilmArray Respiratory Panel (RP2.1) assay is a [...] assay has FDA clearance for testing of APPLIANCE COUNSELOR swabs. ??The performance of additional specimen types has been assessed by the performing laboratory. ??The performance characteristics of this assay have been determined by [facility]. Current interpretive data was last revised on 22. Catherine Adams MD LAB MICROBIOLOGY - GENERAL ORDERABLES Final Result [facility] Department [place] [address] * US Vein Duplex Lower Extremity Bilateral Complete (06/15/2022 11:00 AM CDT) Anatomical Region Laterality Modality Vascular Bilateral Ultrasound 06/15/2022 10:2 9 AM CDT Narrative 06/15/2022 12:34 PM CDT [facility] - Department of Vascular Surgery, Vascular Laboratory [address] [place] [id number] Lower Extremity Venous Ultrasound Report Patient Name: ADELIA GARVIN C : 1970 (51y 9m) Study Date: 06/15/2022 10:29:44 AM Gender: M Tech: Location: [id number] Ref.Provider: CATHERINE ADAMS Quality: Adequate Order Provider: CATHERINE ADAMS Procedures: Vascular Report: Venous Duplex imaging was performed bilaterally in the lower extremities. The common femoral, femoral, popliteal, posterior tibial, peroneal veins were evaluated for patency, spontaneity and phasicity with Doppler, compression and augmentation maneuvers. Great saphenous vein proximal at the junction was evaluated with compression maneuvers. Indications: Localized edema. Findings: Performing Retort Kiln Burner: Faye Zheng RVT, NAN. Bilateral: Venous Doppler [...] performed. Electronically Signed By: Jase Mendez MD [facility] 2022-06-15 12:34:44 CDT CC: CC: Procedure Note Jase Mendez MD - 06/15/2022 [facility] - Department of Vascular Surgery,Vascular Laboratory [address] [place] [address] Lower Extremity Venous Ultrasound Report Patient Name: ADELIA GARVIN CPatient ID: [id number] : 1970 (51y 9m)Study Date: 06/15/2022 10:29:44 AM Gender: MAccession #: [id number] Tech: CDLocation: [id number] Ref.Provider: Leandro ADAMSality: Adequate Order Provider: Ramez ADAMS #: [id number] Procedures: Vascular Report: Venous Duplex imaging was performed bilaterally in the lower extremities.The common femoral, femoral, popliteal, posterior tibial, peroneal veins wereevaluated for patency, spontaneity and phasicity with Doppler, compression and augmentationmaneuvers. Great saphenous vein proximal at the junction was evaluated with compressionmaneuvers. Indications: Localized edema. Findings: Performing Retort Kiln Burner: Faye Zheng RVT, RDMS. Bilateral: Venous Doppler [...] performed. Electronically Signed By: Jase Mendez MD [facility] 2022-06-15 12:34:44 CDT CC: CC: Result [facility] Catherine Adams MD IMG US PROCEDURES Final Res ult * (ABNORMAL) POCT glucose (06/15/2022 8:21 AM CDT) Glucose, POC 260(H) 70 - 199 mg/dL [facility] Blood 06/15/2022 8:21 AM CDT 06/15/2022 8:21 AM CDT Result [facility] Catherine Adams MD LAB POCT ORDERABLES - DEVIC E Final Result Performing Organization Address [facility] Co de Phone Number [facility] Department [place] [address] * Oxyhemoglobin, central venous (06/15/2022 8:11 AM CDT) Oxyhemoglobin, CV 66.6 % [facility] Comment: Interpretive Data No reference range established. Current interpretive data was last revised 2019. Blood 06/15/2022 8:11 AM CDT 06/15/2022 8:25 AM CDT Result [facility] Catherine Adams MD LAB BLOOD ORDERABLES Final Result Performing Organization Address [facility] Co de Phone Number [facility] [place] [address] * (ABNORMAL) aPTT (06/15/2022 8:11 AM CDT) aPTT 60(H) 27 - 37 sec [facility] Comment: Interpretive Data Therapeutic heparin range: [...] Adams MD LAB BLOOD ORDERABLES Final Result [facility] [place] [address] * (ABNORMAL) eGFR (06/15/2022 8:06 AM CDT) eGFR 27(L) 90 - 130 mL/min/1. 73 m2 [facility] Comment: Interpretive Data Reference Interval Normal [...] 06/15/2022 8:50 AM CDT us Marcelina Lo APPLIANCE COUNSELOR LAB BLOOD ORDERABLES Final Re sult [facility] [place] [address] * (ABNORMAL) Differential, auto (06/15/2022 8:06 AM CDT) Neutrophil abs 9.0(H) 1.7 - 6.5 K/cumm [facility] Imm gran abs 1.0(H) 0.0 - 0.1 K/cumm [facility] Lymphocyte abs 1.6 0.8 - 3.3 K/cumm [facility] Monocyte abs 1.5(H) 0.2 - 0.8 K/cumm [facility] Eosinophil abs 0.2 0.0 - 0.5 K/cumm [facility] Basophil abs 0.1 0.0 - 0.1 K/cumm [facility] Neutrophil pct 67.6 % [facility] Comment: Interpretive Data Percent cell count reference ranges are not reported, since discordance with absolute values may lead to misinterpretation of CBC data. Current Interpretive Data was last revised on 2017. Imm gran pct 7.4 % [facility] Comment: Interpretive Data Percent cell count reference ranges are not reported, since discordance with absolute values may lead to misinterpretation of CBC data. Current Interpretive Data was last revised on 2017. Lymphocyte pct 11.8 % [facility] Comment: Interpretive Data Percent cell count reference ranges are not reported, since discordance with absolute values may lead to misinterpretation of CBC data. Current Interpretive Data was last revised on 2017. Monocyte pct 11.2 % [facility] Comment: Interpretive Data Percent cell count reference ranges are not reported, since discordance with absolute values may lead to misinterpretation of CBC data. Current Interpretive Data was last revised on 2017. Eosinophil pct 1.5 % [facility] Comment: Interpretive Data Percent cell count reference ranges are not reported, since discordance with absolute values may lead to misinterpretation of CBC data. Current Interpretive Data was last revised on 2017. Basophil pct 0.5 % [facility] Comment: Interpretive Data Percent cell count reference ranges are not reported, since discordance with absolute values may lead to misinterpretation of CBC data. Current Interpretive Data was last revised on 2017. Blood 06/15/2022 8:06 AM CDT 06/15/2022 8:50 AM CDT us Marcelina Lo APPLIANCE COUNSELOR LAB BLOOD ORDERABLES Final Re sult [facility] [place] [address] * Blood culture Blood Arm, right (06/15/2022 8:06 AM CDT) Report Final Report: No growth [facility] Blood (Arm, right) 06/15/2022 8:06 AM CDT [...] organism identification may be performed using the Microstimigene Gram-Positive Blood Culture Assay. This assay detects microbial DNA in positive blood culture broth via hybridization of target DNA to capture oligonucleotides on a microarray. This assay has been cleared by the [place] Food and Drug Administration and its performance characteristics have been verified by the [facility]biology Laboratory. 5. ?For questions about this culture, contact the Microbiology Laboratory at [phone]. Interpretive data was last revised on 2020. Catherine Adams MD LAB MICROBIOLOGY - GENERAL ORDERABLES Final Result [facility] [place] [address] * Blood culture Blood Antecubital, right (06/15/2022 [...] organism identification may be performed using the Microstimigene Gram-Positive Blood Culture Assay. This assay detects microbial DNA in positive blood culture broth via hybridization of target DNA to capture oligonucleotides on a microarray. This assay has been cleared by the [place] Food and Drug Administration and its performance characteristics have been verified by the [facility]. 5. ?For questions about this culture, contact the Microbiology Laboratory at [phone]. Interpretive data was last revised on 2020. Catherine Adams MD LAB MICROBIOLOGY - GENERAL ORDERABLES Final Result Performing Organization Address City/[facility]/ZIP Co de Phone Number [facility] Department [place] [address] * (ABNORMAL) Magnesium (06/15/2022 8:06 AM CDT) Pathologist [facility] Magnesium 2.8(H) 1.4 - 2.5 mg/dL [facility] Blood 06/15/2022 8:06 AM CDT 06/15/2022 8:50 AM CDT Marcelina Lo NP LAB BLOOD ORDERABLES Final Re sult Performing Organization Address [facility] Co de Phone Number [facility] Department [place] [address] * (ABNORMAL) Comprehensive metabolic panel (06/15/2022 8:06 AM CDT) Pathologist [facility] Sodium 134(L) 135 - 145 mmol/L [facility] Potassium, pl 5.0(H) 3.3 - 4.9 mmol/L [facility] Chloride 99 97 - 110 mmol/L [facility] CO2 26 22 - 32 mmol/L [facility] Anion gap 9 2 - 15 mmol/L [facility] BUN 21 8 - 25 mg/dL [facility] Creatinine 2.73(H) 0.80 - 1.30 mg/dL [facility] Glucose 273(H) 70 - 199 mg/dL [facility] Comment: Interpretive Data Fasting glucose >/= [...] 2017. Calcium 8.8 8.5 - 10.3 mg/dL [facility] Bilirubin, total 0.5 0.1 - 1.2 mg/dL [facility] Protein, pl 6.2(L) 6.5 - 8.5 g/dL [facility] Albumin 2.7(L) 3.5 - 5.0 g/dL [facility] Alk phos 256(H) 40 - 130 Units/L [facility] ALT 44 7 - 55 Units/L [facility] AST 61(H) 10 - 50 Units/L [facility] Blood 06/15/2022 8:06 AM CDT 06/15/2022 8:50 AM CDT us Marcelina Lo APPLIANCE COUNSELOR LAB BLOOD ORDERABLES Final Re sult [facility] [place] [address] * (ABNORMAL) CBC with auto differential (06/15/2022 8:06 AM CDT) Pathologist [facility] WBC 13.2(H) 3.8 - 9.9 K/cumm [facility] Hgb 7.7(L) 13.0 - 17.5 g/dL [facility] Hct 24.1(L) 38.9 - 50.3 % [facility] Plt 228 150 - 400 K/cumm [facility] MPV 10.6 9.1 - 12.3 fL [facility] RBC 2.45(L) 4.30 - 5.80 M/cumm [facility] MCV 98.4(H) 81.3 - 96.4 fL [facility] MCH 31.4 27.1 - 33.3 pg [facility] MCHC 32.0(L) 32.3 - 35.7 g/dL [facility] RDW CV 14.5 11.1 - 14.9 % [facility] RDW SD 49.6(H) 35.7 - 48.1 fL [facility] NRBC abs 0.11(H) 0.00 - 0.01 K/cumm [facility] Blood 06/15/2022 8:06 AM CDT 06/15/2022 8:50 AM CDT us Marcelina Lo NP LAB BLOOD ORDERABLES Final Re sult [facility] [place] [address] * XR Chest 1 View (06/15/2022 5:21 AM CDT) Anatomical Region Laterality Modality Body, Chest N/A Computed Radiogr aphy 06/15/2022 8:52 AM CDT Impressions 06/15/2022 9:21 AM CDT Comparison is made to 06/14/2022. Endotracheal tube terminates near the thoracic inlet, approximately 7 cm above the boni. Recommend advancement. Gastric tube terminates below left hemidiaphragm out of the [id number]. A left internal jugular central venous catheter [...] terminates below left hemidiaphragm out of the [id number]. A left internal jugular central venous catheter [...] Glucose, POC 264(H) 70 - 199 mg/dL [facility] Blood 06/15/2022 3:37 AM CDT 06/15/2022 3:37 AM CDT Catherine Adams MD LAB POCT ORDERABLES - DEVIC E Final Result Performing Organization Address City/[facility]/ZIP Co de Phone Number [facility] Department [place] [address] * Lactate, whole blood (06/15/2022 3:37 AM CDT) [facility] Signature Lactate, bld 0.8 0.7 - 2.0 mmol/L [facility] Blood 06/15/2022 3:37 AM CDT 06/15/2022 3:46 AM CDT Marcelina Lo NP LAB BLOOD ORDERABLES Final Re sult Performing Organization Address City/[facility]/ZIP Co de Phone Number [facility] Department [place] [address] * (ABNORMAL) Blood gas, arterial (06/15/2022 3:37 AM CDT) Pathologist [facility] pH, Art 7.36 7.35 - 7.45 [facility] PCO2, Arterial 41 35 - 45 mmHg [facility] PO2, Arterial 64(L) 83 - 108 mmHg [facility] HCO3 Art (Calculated) 24 20 - 30 mmol/L [facility] BE, art -2 mmol/L [facility] Comment: Interpretive Data No Reference Range Established Current Interpretive Data was last revised on 2017 O2 Sat Art (Measured) 92 90 - 95 % [facility] Blood 06/15/2022 3:37 AM CDT 06/15/2022 3:46 AM CDT us Marcelina Lo APPLIANCE COUNSELOR LAB BLOOD ORDERABLES Final Re sult [facility] [place] [address] * Pneumonia PCR Tracheal aspirate (06/15/2022 1:53 AM CDT) [facility] C. pneumoniae DNA Not Detected Not Detected [facility] Legionella pneumophila DNA Not Detected Not Detected [facility] M. pneumoniae DNA Not Detected Not Detected [facility] Adenovirus DNA Not Detected Not Detected [facility] Coronavirus (229E, OC43, HKU1, NL63) RNA Not Detected Not Detected [facility] Metapneumovirus RNA Not Detected Not Detected [facility] Rhinovirus/Enterov irus RNA Not Detected Not Detected [facility] Influenza A RNA Not Detected Not Detected [facility] Influenza B RNA Not Detected Not Detected [facility] Parainfluenza virus (1-4) RNA Not Detected Not Detected [facility] RSV RNA Not Detected Not Detected [facility] Tracheal aspirate 06/15/2022 1:53 AM CDT 06/15/2022 4:22 AM CDT Narrative [facility] - 06/15/2022 5:52 AM CDT The [...] rule out infection/co-infection with other organisms. The [facility] Pneumonia Panel is FDA cleared for lower respiratory tract specimens. The performance characteristics of this assay have been determined by [facility]. Current interpretive data was last revised on 2021. Catherine Adams MD LAB MICROBIOLOGY - GENERAL ORDERABLES Final Result [facility] Department [place] [address] * Pneumonia PCR with aerobic culture and Gram stain Tracheal aspirate (06/15/2022 1:53 AM CDT) Direct Specimen Exam Molecular Analysis: Rapid molecular analysis has NOT detected bacterial targets (for a list of targets evaluated, refer to the interpretive data for this specimen). Correlation of molecular analysis with culture results is recommended. [facility] Direct Specimen Exam Stain: Few polymorphonuclear leukocytes seen. Few squamous epithelial cells seen. Few mixed bacterial stone seen on Gram stain. [facility] Report Final Report: Insignificant growth based on current clinical standards. [facility] Tracheal aspirate 06/15/2022 1:53 AM CDT 06/15/2022 3:09 AM CDT Narrative [facility] - 06/17/2022 10:03 AM CDT When rapid molecular testing results are reported, testing completed using the [employer] Pneumonia Panel. ??This molecular assay detects: Acinetobacter [...] performance characteristics have been confirmed by the [facility]. ??The performance of the [employer] Pneumonia Panel has not been established for monitoring treatment of infection and bacterial nucleic acids may persist independent of organism viability. us Catherine Adams MD LAB MICROBIOLOGY - GENERAL ORDERABLES Final Result [facility] [place] [address] * (ABNORMAL) Blood gas, arterial (06/14/2022 11:53 PM CDT) pH, Art 7.36 7.35 - 7.45 [facility] PCO2, Arterial 43 35 - 45 mmHg [facility] PO2, Arterial 77(L) 83 - 108 mmHg [facility] HCO3 Art (Calculated) 25 20 - 30 mmol/L [facility] BE, art -1 mmol/L [facility] Comment: Interpretive Data No Reference Range Established Current Interpretive Data was last revised on 2017 O2 Sat Art (Measured) 94 90 - 95 % [facility] Blood 06/14/2022 11:5 3 PM CDT 06/14/2022 11:59 PM CDT us Marcelina Lo APPLIANCE COUNSELOR LAB BLOOD ORDERABLES Final Re sult Performing Organization Address [facility] Co de Phone Number [facility] Department [place] [address] * POCT glucose (06/14/2022 11:52 PM CDT) Glucose, POC 176 70 - 199 mg/dL [facility] Blood 06/14/2022 11:5 2 PM CDT 06/14/2022 11:52 PM CDT us Catherine Adams MD LAB POCT ORDERABLES - DEVIC E Final Result Performing Organization Address [facility] de Phone Number [facility] Department [place] [address] * (ABNORMAL) eGFR (06/14/2022 7:41 PM CDT) eGFR 35(L) 90 - 130 mL/min/1. 73 m2 [facility] Comment: Interpretive Data Reference Interval Normal [...] Adams MD LAB BLOOD ORDERABLES Final Result [facility] [place] [address] * (ABNORMAL) Differential, auto (06/14/2022 7:41 PM CDT) Neutrophil abs 9.9(H) 1.7 - 6.5 K/cumm [facility] Imm gran abs 1.5(H) 0.0 - 0.1 K/cumm [facility] Lymphocyte abs 1.7 0.8 - 3.3 K/cumm [facility] Monocyte abs 1.6(H) 0.2 - 0.8 K/cumm [facility] Eosinophil abs 0.3 0.0 - 0.5 K/cumm [facility] Basophil abs 0.0 0.0 - 0.1 K/cumm [facility] Neutrophil pct 66.0 % [facility] Comment: Interpretive Data Percent cell count reference ranges are not reported, since discordance with absolute values may lead to misinterpretation of CBC data. Current Interpretive Data was last revised on 2017. Imm gran pct 9.6 % [facility] Comment: Interpretive Data Percent cell count reference ranges are not reported, since discordance with absolute values may lead to misinterpretation of CBC data. Current Interpretive Data was last revised on 2017. Lymphocyte pct 11.2 % [facility] Comment: Interpretive Data Percent cell count reference ranges are not reported, since discordance with absolute values may lead to misinterpretation of CBC data. Current Interpretive Data was last revised on 2017. Monocyte pct 10.8 % [facility] Comment: Interpretive Data Percent cell count reference ranges are not reported, since discordance with absolute values may lead to misinterpretation of CBC data. Current Interpretive Data was last revised on 2017. Eosinophil pct 2.1 % [facility] Comment: Interpretive Data Percent cell count reference ranges are not reported, since discordance with absolute values may lead to misinterpretation of CBC data. Current Interpretive Data was last revised on 2017. Basophil pct 0.3 % [facility] Comment: Interpretive Data Percent cell count reference ranges are not reported, since discordance with absolute values may lead to misinterpretation of CBC data. Current Interpretive Data was last revised on 2017. Blood 06/14/2022 7:41 PM CDT 06/14/2022 8:01 PM CDT Catherine Adams MD LAB BLOOD ORDERABLES Final Result Performing Organization Address City/[facility]/ZIP Co de Phone Number [facility] Department [place] [address] * (ABNORMAL) Magnesium (06/14/2022 7:41 PM CDT) Magnesium 3.0(H) 1.4 - 2.5 mg/dL [facility] Blood 06/14/2022 7:41 PM CDT 06/14/2022 7:49 PM CDT us Catherine Adams MD LAB BLOOD ORDERABLES Final Result Performing Organization Address City/[facility]/ZIP Co de Phone Number [facility] [place] [address] * (ABNORMAL) Comprehensive metabolic panel (06/14/2022 7:41 PM CDT) Sodium 138 135 - 145 mmol/L [facility] Potassium, pl 4.7 3.3 - 4.9 mmol/L [facility] Chloride 102 97 - 110 mmol/L [facility] CO2 27 22 - 32 mmol/L [facility] Anion gap 9 2 - 15 mmol/L [facility] BUN 17 8 - 25 mg/dL [facility] Creatinine 2.22(H) 0.80 - 1.30 mg/dL [facility] Glucose 182 70 - 199 mg/dL [facility] Comment: Interpretive Data Fasting glucose >/= [...] 2017. Calcium 9.1 8.5 - 10.3 mg/dL [facility] Bilirubin, total 0.6 0.1 - 1.2 mg/dL [facility] Protein, pl 6.5 6.5 - 8.5 g/dL [facility] Albumin 3.1(L) 3.5 - 5.0 g/dL [facility] Alk phos 264(H) 40 - 130 Units/L [facility] ALT 45 7 - 55 Units/L [facility] AST 73(H) 10 - 50 Units/L [facility] Blood 06/14/2022 7:41 PM CDT 06/14/2022 7:49 PM CDT us Catherine Adams MD LAB BLOOD ORDERABLES Final Result [facility] [place] [address] * (ABNORMAL) Triglycerides (06/14/2022 7:41 PM CDT) Triglycerides 482(H) <=149 mg/dL [facility] Comment: Interpretive Data Ages < or = [...] PM CDT 06/14/2022 7:49 PM CDT N[facility]ative [facility] - 06/14/2022 8:29 PM CDT While on propofol infusion. us Catherine Adams MD LAB BLOOD ORDERABLES Final Result [facility] [place] [address] * Phosphorus (06/14/2022 7:41 PM CDT) Phosphorus, pl 3.1 2.3 - 4.5 mg/dL [facility] Blood 06/14/2022 7:41 PM CDT 06/14/2022 7:49 PM CDT Marcelina Lo APPLIANCE COUNSELOR LAB BLOOD ORDERABLES Final Re sult Performing Organization Address [facility] de Phone Number [facility] [place] [address] * (ABNORMAL) Beta-hydroxybutyrate (06/14/2022 7:41 PM CDT) [facility] Beta-Hydroxybut yrate 0.7(H) 0.0 - 0.5 mmol/L [facility] Blood 06/14/2022 7:41 PM CDT 06/14/2022 7:47 PM CDT Marcelina Lo APPLIANCE COUNSELOR LAB BLOOD ORDERABLES Edited R esult - Final Performing Organization Address [facility] de Phone Number [facility] [place] [address] * Lipase (06/14/2022 7:41 PM CDT) [facility] Lipase 25 10 - 99 Units/L [facility] Blood 06/14/2022 7:41 PM CDT 06/14/2022 7:49 PM CDT Marcelina Lo APPLIANCE COUNSELOR LAB BLOOD ORDERABLES Final Re sult Performing Organization Address [facility] de Phone Number [facility] [place] [address] * (ABNORMAL) CBC with auto differential (06/14/2022 7:41 PM CDT) [facility] WBC 15.0(H) 3.8 - 9.9 K/cumm [facility] Hgb 8.3(L) 13.0 - 17.5 g/dL [facility] Hct 24.9(L) 38.9 - 50.3 % [facility] Plt 218 150 - 400 K/cumm [facility] MPV 10.4 9.1 - 12.3 fL [facility] RBC 2.62(L) 4.30 - 5.80 M/cumm [facility] MCV 95.0 81.3 - 96.4 fL [facility] MCH 31.7 27.1 - 33.3 pg [facility] MCHC 33.3 32.3 - 35.7 g/dL [facility] RDW CV 14.1 11.1 - 14.9 % [facility] RDW SD 47.3 35.7 - 48.1 fL [facility] NRBC abs 0.08(H) 0.00 - 0.01 K/cumm [facility] Blood 06/14/2022 7:41 PM CDT 06/14/2022 8:01 PM CDT us Marcelina Lo APPLIANCE COUNSELOR LAB BLOOD ORDERABLES Final Re sult Performing Organization Address City/[facility]/ZIP Co de Phone Number [facility] [place] [address] * POCT glucose (06/14/2022 7:40 PM CDT) [facility] Glucose, POC 190 70 - 199 mg/dL [facility] Blood 06/14/2022 7:40 PM CDT 06/14/2022 7:40 PM CDT Catherine Adams MD LAB POCT ORDERABLES - DEVIC E Final Result Performing Organization Address City/[facility]/ZIP Co de Phone Number [facility] [place] [address] * (ABNORMAL) Blood gas, arterial (06/14/2022 4:19 PM CDT) [facility] pH, Art 7.38 7.35 - 7.45 [facility] PCO2, Arterial 41 35 - 45 mmHg [facility] PO2, Arterial 76(L) 83 - 108 mmHg [facility] HCO3 Art (Calculated) 25 20 - 30 mmol/L [facility] BE, art -1 mmol/L [facility] Comment: Interpretive Data No Reference Range Established Current Interpretive Data was last revised on 2017 O2 Sat Art (Measured) 94 90 - 95 % [facility] Blood 06/14/2022 4:19 PM CDT 06/14/2022 4:38 PM CDT us Marcelina Lo APPLIANCE COUNSELOR LAB BLOOD ORDERABLES Final Re sult Performing Organization Address City/[facility] Co de Phone Number [facility] [place] [address] * (ABNORMAL) POCT glucose (06/14/2022 4:16 PM CDT) Glucose, POC 229(H) 70 - 199 mg/dL [facility] Glucose comment 1 Glu2: RN/ Notified [facility] Blood 06/14/2022 4:16 PM CDT 06/14/2022 4:16 PM CDT us Catherine Adams MD LAB POCT ORDERABLES - DEVIC E Final Result Performing Organization Address [facility] Co de Phone Number [facility] [place] [address] * (ABNORMAL) POCT glucose (06/14/2022 11:21 AM CDT) Glucose, POC 202(H) 70 - 199 mg/dL [facility] Blood 06/14/2022 11:2 1 AM CDT 06/14/2022 11:21 AM CDT us Catherine Adams MD LAB POCT ORDERABLES - DEVIC E Final Result Performing Organization Address City/[facility]/ZIP Co de Phone Number [facility] [place] [address] * XR Chest 1 View (06/14/2022 10:56 [...] Glucose, POC 172 70 - 199 mg/dL [facility] Blood 06/14/2022 8:18 AM CDT 06/14/2022 8:18 AM CDT us Catherine Adams MD LAB POCT ORDERABLES - DEVIC E Final Result Performing Organization Address City/[facility]/ZIP Co de Phone Number [facility] [place] [address] * (ABNORMAL) eGFR (06/14/2022 8:16 AM CDT) eGFR 35(L) 90 - 130 mL/min/1. 73 m2 [facility] Comment: Interpretive Data Reference Interval Normal ?>/= [...] ORDERABLES Final Result Performing Organization Address City/[facility]/ZIP Co de Phone Number [facility] [place] [address] * (ABNORMAL) Differential, auto (06/14/2022 8:16 AM CDT) Neutrophil abs 10.1(H) 1.7 - 6.5 K/cumm [facility] Imm gran abs 1.8(H) 0.0 - 0.1 K/cumm [facility] Lymphocyte abs 2.0 0.8 - 3.3 K/cumm [facility] Monocyte abs 1.5(H) 0.2 - 0.8 K/cumm [facility] Eosinophil abs 0.3 0.0 - 0.5 K/cumm [facility] Basophil abs 0.1 0.0 - 0.1 K/cumm [facility] Neutrophil pct 64.1 % [facility] Comment: Interpretive Data Percent cell count reference ranges are not reported, since discordance with absolute values may lead to misinterpretation of CBC data. Current Interpretive Data was last revised on 2017. Imm gran pct 11.4 % [facility] Comment: Interpretive Data Percent cell count reference ranges are not reported, since discordance with absolute values may lead to misinterpretation of CBC data. Current Interpretive Data was last revised on 2017. Lymphocyte pct 12.7 % [facility] Comment: Interpretive Data Percent cell count reference ranges are not reported, since discordance with absolute values may lead to misinterpretation of CBC data. Current Interpretive Data was last revised on 2017. Monocyte pct 9.5 % [facility] Comment: Interpretive Data Percent cell count reference ranges are not reported, since discordance with absolute values may lead to misinterpretation of CBC data. Current Interpretive Data was last revised on 2017. Eosinophil pct 1.9 % [facility] Comment: Interpretive Data Percent cell count reference ranges are not reported, since discordance with absolute values may lead to misinterpretation of CBC data. Current Interpretive Data was last revised on 2017. Basophil pct 0.4 % [facility] Comment: Interpretive Data Percent cell count reference ranges are not reported, since discordance with absolute values may lead to misinterpretation of CBC data. Current Interpretive Data was last revised on 2017. Blood 06/14/2022 8:16 AM CDT 06/14/2022 8:29 AM CDT Catherine Adams MD LAB BLOOD ORDERABLES Final Result Performing Organization Address [facility] Co de Phone Number [facility] [place] [address] * (ABNORMAL) aPTT (06/14/2022 8:16 AM CDT) aPTT 67(H) 27 - 37 sec [facility] Comment: Interpretive Data Therapeutic heparin range: 60.0 - 94.0 seconds. Based on correlation with therapeutic heparin activity range of 0.3-0.7 Units/mL. Current interpretive data was last revised on 2020. Blood 06/14/2022 8:16 AM CDT 06/14/2022 8:30 AM CDT Narrative [facility] - 06/14/2022 8:54 AM CDT Draw [...] BLOOD ORDERABLES Final Result Performing Organization Address [facility] de Phone Number [facility] [place] [address] * (ABNORMAL) Blood gas, arterial (06/14/2022 8:16 AM CDT) pH, Art 7.41 7.35 - 7.45 [facility] PCO2, Arterial 38 35 - 45 mmHg [facility] PO2, Arterial 89 83 - 108 mmHg [facility] HCO3 Art (Calculated) 25 20 - 30 mmol/L [facility] BE, art 0 mmol/L [facility] Comment: Interpretive Data No Reference Range Established Current Interpretive Data was last revised on 2017 O2 Sat Art (Measured) 97(H) 90 - 95 % [facility] Blood 06/14/2022 8:16 AM CDT 06/14/2022 8:27 AM CDT Marcelina Lo APPLIANCE COUNSELOR LAB BLOOD ORDERABLES Final Re sult Performing Organization Address [facility] Co de Phone Number [facility] [place] [address] * (ABNORMAL) Magnesium (06/14/2022 8:16 AM CDT) Pathologist [facility] Magnesium 2.9(H) 1.4 - 2.5 mg/dL [facility] Blood 06/14/2022 8:16 AM CDT 06/14/2022 8:29 AM CDT Marcelina Lo APPLIANCE COUNSELOR LAB BLOOD ORDERABLES Final Re sult Performing Organization Address [facility] de Phone Number [facility] Department [place] [address] * (ABNORMAL) Comprehensive metabolic panel (06/14/2022 8:16 AM CDT) [facility] Sodium 134(L) 135 - 145 mmol/L [facility] Potassium, pl 4.7 3.3 - 4.9 mmol/L [facility] Comment:Hemolyzed; Potassium value may be falsely elevated by as much as 0.3-0.5 mmol/L. Suggest redraw and reanalysis. Chloride 100 97 - 110 mmol/L [facility] CO2 25 22 - 32 mmol/L [facility] Anion gap 9 2 - 15 mmol/L [facility] BUN 16 8 - 25 mg/dL [facility] Creatinine 2.19(H) 0.80 - 1.30 mg/dL [facility] Glucose 171 70 - 199 mg/dL [facility] Comment: Interpretive Data Fasting glucose >/= [...] 2017. Calcium 9.5 8.5 - 10.3 mg/dL [facility] Bilirubin, total 0.6 0.1 - 1.2 mg/dL [facility] Protein, pl 6.6 6.5 - 8.5 g/dL [facility] Albumin 3.1(L) 3.5 - 5.0 g/dL [facility] Alk phos 276(H) 40 - 130 Units/L [facility] ALT 48 7 - 55 Units/L [facility] AST 81(H) 10 - 50 Units/L [facility] Comment:Hemolyzed; result ma y be falsely elevated Blood 06/14/2022 8:16 AM CDT 06/14/2022 8:29 AM CDT us Marcelina Lo APPLIANCE COUNSELOR LAB BLOOD ORDERABLES Final Re sult [facility] [place] [address] * (ABNORMAL) CBC with auto differential (06/14/2022 8:16 AM CDT) WBC 15.7(H) 3.8 - 9.9 K/cumm [facility] Hgb 8.3(L) 13.0 - 17.5 g/dL [facility] Hct 25.5(L) 38.9 - 50.3 % [facility] Plt 217 150 - 400 K/cumm [facility] MPV 10.6 9.1 - 12.3 fL [facility] RBC 2.63(L) 4.30 - 5.80 M/cumm [facility] MCV 97.0(H) 81.3 - 96.4 fL [facility] MCH 31.6 27.1 - 33.3 pg [facility] MCHC 32.5 32.3 - 35.7 g/dL [facility] RDW CV 13.8 11.1 - 14.9 % [facility] RDW SD 48.2(H) 35.7 - 48.1 fL [facility] NRBC abs 0.07(H) 0.00 - 0.01 K/cumm [facility] Blood 06/14/2022 8:16 AM CDT 06/14/2022 8:29 AM CDT us Marcelina Lo APPLIANCE COUNSELOR LAB BLOOD ORDERABLES Final Re sult [facility] [place] [address] * POCT glucose (06/14/2022 7:46 AM CDT) [facility] Signature Glucose, POC 180 70 - 199 mg/dL [facility] Blood 06/14/2022 7:46 AM CDT 06/14/2022 7:46 AM CDT us Catherine Adams MD LAB POCT ORDERABLES - DEVIC E Final Result Performing Organization Address City/[facility]/ZIP Co de Phone Number [facility] [place] [address] * XR Chest 1 View (06/14/2022 4:14 [...] Glucose, POC 163 70 - 199 mg/dL [facility] Blood 06/14/2022 4:01 AM CDT 06/14/2022 4:01 AM CDT Catherine Adams MD LAB POCT ORDERABLES - DEVIC E Final Result [facility] [place] [address] * POCT glucose (06/13/2022 11:38 PM CDT) Glucose, POC 175 70 - 199 mg/dL [facility] Blood 06/13/2022 11:3 8 PM CDT 06/13/2022 11:38 PM CDT us Catherine Adams MD LAB POCT ORDERABLES - DEVIC E Final Result Performing Organization Address [facility] de Phone Number [facility] [place] [address] * (ABNORMAL) aPTT (06/13/2022 10:49 PM CDT) aPTT 72(H) 27 - 37 sec [facility] Comment: Interpretive Data Therapeutic heparin range: 60.0 - 94.0 seconds. Based on correlation with therapeutic heparin activity range of 0.3-0.7 Units/mL. Current interpretive data was last revised on 2020. Blood 06/13/2022 10:4 9 PM CDT 06/13/2022 11:55 PM CDT Narrative [facility] - 06/14/2022 12:04 AM CDT Check aPTT 6 hours after the start of Heparin infusion and 6 hours after any change in Heparin rate. (Target aPTT 61-80 seconds). Call Nephrology if outside range. us Catherine Adams MD LAB BLOOD ORDERABLES Final Result Performing Organization Address [facility] de Phone Number [facility] [place] [address] * (ABNORMAL) Vancomycin level trough (06/13/2022 10:49 PM CDT) Vancomycin trough 23.3(H) 10.0 - 20.0 mcg/mL [facility] Blood 06/13/2022 10:4 9 PM CDT 06/13/2022 11:10 PM CDT us Catherine Adams MD LAB BLOOD ORDERABLES Final Result Performing Organization Address [facility]/ZIP Co de Phone Number [facility] [place] [address] * (ABNORMAL) CBC without differential (06/13/2022 10:49 PM CDT) WBC 15.0(H) 3.8 - 9.9 K/cumm [facility] Hgb 7.7(L) 13.0 - 17.5 g/dL [facility] Hct 22.7(L) 38.9 - 50.3 % [facility] Plt 206 150 - 400 K/cumm [facility] MPV 10.6 9.1 - 12.3 fL [facility] RBC 2.41(L) 4.30 - 5.80 M/cumm [facility] MCV 94.2 81.3 - 96.4 fL [facility] MCH 32.0 27.1 - 33.3 pg [facility] MCHC 33.9 32.3 - 35.7 g/dL [facility] RDW CV 13.7 11.1 - 14.9 % [facility] RDW SD 46.4 35.7 - 48.1 fL [facility] NRBC abs 0.05(H) 0.00 - 0.01 K/cumm [facility] Blood 06/13/2022 10:4 9 PM CDT 06/13/2022 11:10 PM CDT Catherine Adams MD LAB BLOOD ORDERABLES Final Result Performing Organization Address City/[facility] Co de Phone Number [facility] [place] [address] * (ABNORMAL) POCT glucose (06/13/2022 10:48 PM CDT) Glucose, POC 200(H) 70 - 199 mg/dL [facility] Blood 06/13/2022 10:4 8 PM CDT 06/13/2022 10:48 PM CDT us Catherine Adams MD LAB POCT ORDERABLES - DEVIC E Final Result [facility] [place] [address] * POCT glucose (06/13/2022 8:28 PM CDT) Pathologist [facility] Glucose, POC 182 70 - 199 mg/dL [facility] Blood 06/13/2022 8:28 PM CDT 06/13/2022 8:28 PM CDT Catherine Adams MD LAB POCT ORDERABLES - DEVIC E Final Result Performing Organization Address [facility] de Phone Number [facility] [place] [address] * (ABNORMAL) eGFR (06/13/2022 8:17 PM CDT) Pathologist [facility] eGFR 35(L) 90 - 130 mL/min/1. 73 m2 [facility] Comment: Interpretive Data Reference Interval Normal [...] Adams MD LAB BLOOD ORDERABLES Final Result [facility] [place] [address] * (ABNORMAL) Differential, auto (06/13/2022 8:17 PM CDT) Neutrophil abs 10.6(H) 1.7 - 6.5 K/cumm [facility] Imm gran abs 2.2(H) 0.0 - 0.1 K/cumm [facility] Lymphocyte abs 2.3 0.8 - 3.3 K/cumm [facility] Monocyte abs 1.5(H) 0.2 - 0.8 K/cumm [facility] Eosinophil abs 0.3 0.0 - 0.5 K/cumm [facility] Basophil abs 0.1 0.0 - 0.1 K/cumm [facility] Neutrophil pct 62.7 % [facility] Comment: Confirmed by smear review Interpretive Data Percent cell count reference ranges are not reported, since discordance with absolute values may lead to misinterpretation of CBC data. Current Interpretive Data was last revised on 2017. Imm gran pct 13.0 % [facility] Comment: Interpretive Data Percent cell count reference ranges are not reported, since discordance with absolute values may lead to misinterpretation of CBC data. Current Interpretive Data was last revised on 2017. Lymphocyte pct 13.4 % [facility] Comment: Interpretive Data Percent cell count reference ranges are not reported, since discordance with absolute values may lead to misinterpretation of CBC data. Current Interpretive Data was last revised on 2017. [facility]ocyte pct 8.9 % [facility] Comment: Interpretive Data Percent cell count reference ranges are not reported, since discordance with absolute values may lead to misinterpretation of CBC data. Current Interpretive Data was last revised on 2017. Eosinophil pct 1.7 % [facility] Comment: Interpretive Data Percent cell count reference ranges are not reported, since discordance with absolute values may lead to misinterpretation of CBC data. Current Interpretive Data was last revised on 2017. Basophil pct 0.3 % [facility] Comment: Interpretive Data Percent cell count reference ranges are not reported, since discordance with absolute values may lead to misinterpretation of CBC data. Current Interpretive Data was last revised on 2017. Blood 06/13/2022 8:17 PM CDT 06/13/2022 8:34 PM CDT Catherine Adams MD LAB BLOOD ORDERABLES Final Result Performing Organization Address [facility] Co de Phone Number [facility] Department [place] [address] * (ABNORMAL) Magnesium (06/13/2022 8:17 PM CDT) Pathologist [facility] Magnesium 2.7(H) 1.4 - 2.5 mg/dL [facility] Blood 06/13/2022 8:17 PM CDT 06/13/2022 8:33 PM CDT Catherine Adams MD LAB BLOOD ORDERABLES Final Result Performing Organization Address City/[facility] de Phone Number [facility] Department [place] [address] * (ABNORMAL) Comprehensive metabolic panel (06/13/2022 8:17 PM CDT) Pathologist [facility] Sodium 135 135 - 145 mmol/L [facility] Potassium, pl 4.9 3.3 - 4.9 mmol/L [facility] Chloride 99 97 - 110 mmol/L [facility] CO2 26 22 - 32 mmol/L [facility] Anion gap 10 2 - 15 mmol/L [facility] BUN 17 8 - 25 mg/dL [facility] Creatinine 2.21(H) 0.80 - 1.30 mg/dL [facility] Glucose 179 70 - 199 mg/dL [facility] Comment: Interpretive Data Fasting glucose >/= [...] 2017. Calcium 8.9 8.5 - 10.3 mg/dL [facility] Bilirubin, total 0.6 0.1 - 1.2 mg/dL [facility] Protein, pl 6.2(L) 6.5 - 8.5 g/dL [facility] Albumin 3.0(L) 3.5 - 5.0 g/dL [facility] Alk phos 274(H) 40 - 130 Units/L [facility] ALT 47 7 - 55 Units/L [facility] AST 80(H) 10 - 50 Units/L [facility] Blood 06/13/2022 8:17 PM CDT 06/13/2022 8:33 PM CDT us Catherine Adams MD LAB BLOOD ORDERABLES Final Result [facility] [place] [address] * Lactate, whole blood (06/13/2022 8:17 PM CDT) Lactate, bld 0.8 0.7 - 2.0 mmol/L [facility] Blood 06/13/2022 8:17 PM CDT 06/13/2022 8:26 PM CDT us Marcelina Lo APPLIANCE COUNSELOR LAB BLOOD ORDERABLES Final Re sult Performing Organization Address [facility] Co de Phone Number [facility] [place] [address] * (ABNORMAL) Blood gas, arterial (06/13/2022 8:17 PM CDT) pH, Art 7.42 7.35 - 7.45 [facility] PCO2, Arterial 37 35 - 45 mmHg [facility] PO2, Arterial 73(L) 83 - 108 mmHg [facility] HCO3 Art (Calculated) 24 20 - 30 mmol/L [facility] BE, art 0 mmol/L [facility] Comment: Interpretive Data No Reference Range Established Current Interpretive Data was last revised on 2017 O2 Sat Art (Measured) 94 90 - 95 % [facility] Blood 06/13/2022 8:17 PM CDT 06/13/2022 8:26 PM CDT Marcelina Lo APPLIANCE COUNSELOR LAB BLOOD ORDERABLES Final Re sult Performing Organization Address [facility] Co de Phone Number [facility] Department [place] [address] * (ABNORMAL) Triglycerides (06/13/2022 8:17 PM CDT) Triglycerides 324(H) <=149 mg/dL [facility] Comment: Interpretive Data Ages < [...] PM CDT 06/13/2022 8:33 PM CDT Narrative [facility] - 06/13/2022 9:29 PM CDT While on propofol infusion. Catherine Adams MD LAB BLOOD ORDERABLES Final Result Performing Organization Address City/[facility]/ZIP Co de Phone Number [facility] Department [place] [address] * Phosphorus (06/13/2022 8:17 PM CDT) Phosphorus, pl 3.1 2.3 - 4.5 mg/dL [facility] Blood 06/13/2022 8:17 PM CDT 06/13/2022 8:33 PM CDT Marcelina Lo APPLIANCE COUNSELOR LAB BLOOD ORDERABLES Final Re sult Performing Organization Address City/[facility]/ZIP Co de Phone Number [facility] [place] [address] * (ABNORMAL) Beta-hydroxybutyrate (06/13/2022 8:17 PM CDT) Beta-Hydroxybut yrate 1.2(H) 0.0 - 0.5 mmol/L [facility] Blood 06/13/2022 8:17 PM CDT 06/13/2022 8:34 PM CDT Marcelina Lo APPLIANCE COUNSELOR LAB BLOOD ORDERABLES Edited R esult - Final [facility] [place] [address] * Lipase (06/13/2022 8:17 PM CDT) Pathologist [facility] Lipase 16 10 - 99 Units/L [facility] Blood 06/13/2022 8:17 PM CDT 06/13/2022 8:33 PM CDT Marcelina Lo APPLIANCE COUNSELOR LAB BLOOD ORDERABLES Final Re sult Performing Organization Address [facility] Co de Phone Number [facility] [place] [address] * (ABNORMAL) CBC with auto differential (06/13/2022 8:17 PM CDT) [facility] WBC 16.9(H) 3.8 - 9.9 K/cumm [facility] Hgb 8.0(L) 13.0 - 17.5 g/dL [facility] Hct 24.2(L) 38.9 - 50.3 % [facility] Plt 202 150 - 400 K/cumm [facility] MPV 10.7 9.1 - 12.3 fL [facility] RBC 2.55(L) 4.30 - 5.80 M/cumm [facility] MCV 94.9 81.3 - 96.4 fL [facility] MCH 31.4 27.1 - 33.3 pg [facility] MCHC 33.1 32.3 - 35.7 g/dL [facility] RDW CV 13.7 11.1 - 14.9 % [facility] RDW SD 46.6 35.7 - 48.1 fL [facility] NRBC abs 0.07(H) 0.00 - 0.01 K/cumm [facility] Blood 06/13/2022 8:17 PM CDT 06/13/2022 8:34 PM CDT Marcelina Lo APPLIANCE COUNSELOR LAB BLOOD ORDERABLES Final Re sult [facility] Department [place] [address] * XR Chest 1 View (06/13/2022 4:45 PM CDT) Anatomical Region Laterality Modality Body, Chest N/A Computed Radiogr aphy 06/13/2022 4:58 PM CDT Impressions 06/13/2022 4:58 PM CDT Comparison is made to the prior from 06/13/2022. Endotracheal tube terminates 3 cm above the boni. Nasogastric tube terminates below the diaphragms on the [id number]. Left internal jugular approach central venous catheter [...] tube terminates below the diaphragms on the [id number]. Left internal jugular approach central venous catheter [...] PM CDT 06/13/2022 4:32 PM CDT Narrative [facility] - 06/13/2022 4:42 PM CDT Draw [...] BLOOD ORDERABLES Final Result Performing Organization Address [facility] de Phone Number [facility] [place] [address] * (ABNORMAL) Blood gas, arterial (06/13/2022 4:12 PM CDT) Pathologist [facility] pH, Art 7.43 7.35 - 7.45 [facility] PCO2, Arterial 39 35 - 45 mmHg [facility] PO2, Arterial 63(L) 83 - 108 mmHg [facility] HCO3 Art (Calculated) 27 20 - 30 mmol/L [facility] BE, art 2 mmol/L [facility] Comment: Interpretive Data No Reference Range Established Current Interpretive Data was last revised on 2017 O2 Sat Art (Measured) 92 90 - 95 % [facility] Blood 06/13/2022 4:12 PM CDT 06/13/2022 4:20 PM CDT us Marcelina Lo NP LAB BLOOD ORDERABLES Final Re sult Performing Organization Address [facility] Co de Phone Number [facility] [place] [address] * Potassium, whole blood (06/13/2022 4:12 PM CDT) Pathologist [facility] Potassium, bld 4.5 3.3 - 4.9 mmol/L [facility] Blood 06/13/2022 4:12 PM CDT 06/13/2022 4:20 PM CDT Marcelina Lo APPLIANCE COUNSELOR LAB BLOOD ORDERABLES Final Re sult Performing Organization Address City/[facility]/ZIP Co de Phone Number [facility] [place] [address] * Lactate, whole blood (06/13/2022 4:12 PM CDT) Lactate, bld 0.9 0.7 - 2.0 mmol/L [facility] Blood 06/13/2022 4:12 PM CDT 06/13/2022 4:20 PM CDT Marcelina Lo APPLIANCE COUNSELOR LAB BLOOD ORDERABLES Final Re sult Performing Organization Address City/[facility]/ZIP Co de Phone Number [facility] [place] [address] * POCT glucose (06/13/2022 4:11 PM CDT) Glucose, POC 99 70 - 199 mg/dL [facility] Blood 06/13/2022 4:11 PM CDT 06/13/2022 4:11 PM CDT Catherine Adams MD LAB POCT ORDERABLES - DEVIC E Final Result [facility] [place] [address] * POCT glucose (06/13/2022 12:29 PM CDT) Glucose, POC 129 70 - 199 mg/dL [facility] Blood 06/13/2022 12:2 9 PM CDT 06/13/2022 12:29 PM CDT us Catherine Adams MD LAB POCT ORDERABLES - DEVIC E Final Result Performing Organization Address [facility] Co de Phone Number [facility] Department [place] [address] * (ABNORMAL) Blood gas, arterial (06/13/2022 12:20 PM CDT) pH, Art 7.40 7.35 - 7.45 [facility] PCO2, Arterial 42 35 - 45 mmHg [facility] PO2, Arterial 60(L) 83 - 108 mmHg [facility] HCO3 Art (Calculated) 27 20 - 30 mmol/L [facility] BE, art 2 mmol/L [facility] Comment: Interpretive Data No Reference Range Established Current Interpretive Data was last revised on 2017 O2 Sat Art (Measured) 90 90 - 95 % [facility] Blood 06/13/2022 12:2 0 PM CDT 06/13/2022 1:01 PM CDT us Marcelina Lo APPLIANCE COUNSELOR LAB BLOOD ORDERABLES Final Re sult Performing Organization Address [facility] Co de Phone Number [facility] [place] [address] * XR Chest 1 View (06/13/2022 11:11 [...] Potassium, bld 5.7(H) 3.3 - 4.9 mmol/L [facility] Blood 06/13/2022 9:41 AM CDT 06/13/2022 9:47 AM CDT Marcelina Lo APPLIANCE COUNSELOR LAB BLOOD ORDERABLES Final Re sult [facility] [place] [address] * Lactate, whole blood (06/13/2022 9:41 AM CDT) Lactate, bld 1.0 0.7 - 2.0 mmol/L [facility] Blood 06/13/2022 9:41 AM CDT 06/13/2022 9:47 AM CDT Marcelina Lo APPLIANCE COUNSELOR LAB BLOOD ORDERABLES Final Re sult Performing Organization Address [facility] Co de Phone Number [facility] [place] [address] * (ABNORMAL) Blood gas, arterial (06/13/2022 9:41 AM CDT) pH, Art 7.40 7.35 - 7.45 [facility] PCO2, Arterial 40 35 - 45 mmHg [facility] PO2, Arterial 66(L) 83 - 108 mmHg [facility] HCO3 Art (Calculated) 26 20 - 30 mmol/L [facility] BE, art 0 mmol/L [facility] Comment: Interpretive Data No Reference Range Established Current Interpretive Data was last revised on 2017 O2 Sat Art (Measured) 93 90 - 95 % [facility] Blood 06/13/2022 9:41 AM CDT 06/13/2022 9:47 AM CDT Marcelina Lo APPLIANCE COUNSELOR LAB BLOOD ORDERABLES Final Re sult Performing Organization Address [facility] de Phone Number [facility] Department [place] [address] * (ABNORMAL) POCT glucose (06/13/2022 9:38 AM CDT) Glucose, POC 215(H) 70 - 199 mg/dL [facility] Blood 06/13/2022 9:38 AM CDT 06/13/2022 9:38 AM CDT Catherine Adams MD LAB POCT ORDERABLES - DEVIC E Final Result Performing Organization Address [facility] Co de Phone Number [facility] Department [place] [address] * TRANSTHORACIC ECHO (TTE) COMPLETE W DOPPLER/CF W CONTRAST W BUBBLE (06/13/2022 9:34 AM CDT) LV EF 65 % [facility] Anatomical Region Laterality Modality Ultrasound 06/13/2022 7:10 AM CDT Narrative 06/13/2022 11:08 AM CDT Patient name: Adelia Garvin Date of test: 06/13/2022 Type of test: TTE w/Doppler Hospital #: 0 Date of : 1970 (M) 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 Optison Admin., (2.2 ml Wasted) and NS Bubble Study Contrast Administered by: Ginna RN Supervised/Interpreted by: Vincenzo Stoddard MD Diagnosis: Location: [facility] Reason for test: TTE with [...] 2=Hypo 3=Akinetic 4=Dyskin./Aneurysm 0=Not visualized) Parasternal Long Esopus:MAS=1 BAS=1 MIL=1 IVETH=1 Parasternal Short Esopus:MAS=1 MIS=1 WY=1 MIL=1 MAL=1 MA=1 Apical 4 Chambers:=1 MIS=1 BIS=1 BAL=1 MAL=1 AL=1 AC=1 Apical 2 Chambers:AI=1 WY=1 BI=1 BA=1 MA=1 AA=1 AC=1 LV Global [...] MD By signing this report, the attending auto rental clerk certifies that he or she has personally supervised and interpreted the echocardiogram and has reviewed and or edited and agrees with the written comments contained within the report. Procedure Note Vincenzo Stoddard MD - 06/13/2022 Patient name: Adelia Garvin Date of test: 06/13/2022 Type of test: TTE w/Doppler [facility] #: 0 Date of : 1970 (M) 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 Optison Admin., (2.2 ml Wasted) and NS Bubble Study Contrast Administered by: Floor RN Supervised/Interpreted by: Vincenzo Stoddard MD Diagnosis: Location: [facility] Reason for test: TTE with [...] 2=Hypo 3=Akinetic 4=Dyskin./Aneurysm 0=Not visualized) Parasternal Long Esopus:MAS=1 BAS=1 MIL=1 IVETH=1 Parasternal Short Esopus:MAS=1 MIS=1 WY=1 MIL=1 MAL=1 MA=1 Apical 4 Chambers:=1 MIS=1 BIS=1 BAL=1 MAL=1 AL=1 AC=1 Apical 2 Chambers:AI=1 WY=1 BI=1 BA=1 MA=1 AA=1 AC=1 LV Global [...] MD By signing this report, the attending auto rental clerk certifies that he or she has personally supervised and interpreted the echocardiogram and has reviewed and or edited and agrees with the written comments contained within the report. us Catherine Adams MD CV ECHO PROCEDURES Final Re sult * (ABNORMAL) Manual Differential (06/13/2022 9:33 AM CDT) Differential Manual [facility] Cells Counted 115 [facility] Neutrophil abs 13.0(H) 1.7 - 6.5 K/cumm [facility] Imm gran abs 1.2(H) 0.0 - 0.1 K/cumm [facility] Lymphocyte abs 0.7(L) 0.8 - 3.3 K/cumm [facility] Monocyte abs 0.4 0.2 - 0.8 K/cumm [facility] Eosinophil abs 0.3 0.0 - 0.5 K/cumm [facility] Neutrophil pct 83.6 % [facility] Comment: Interpretive Data Percent cell count reference ranges are not reported, since discordance with absolute values may lead to misinterpretation of CBC data. Current Interpretive Data was last revised on 2017. Lymphocyte pct 4.3 % [facility] Comment: Interpretive Data Percent cell count reference ranges are not reported, since discordance with absolute values may lead to misinterpretation of CBC data. Current Interpretive Data was last revised on 2017. Monocyte pct 2.6 % [facility] Comment: Interpretive Data Percent cell count reference ranges are not reported, since discordance with absolute values may lead to misinterpretation of CBC data. Current Interpretive Data was last revised on 2017. Eosinophil pct 1.7 % [facility] Comment: Interpretive Data Percent cell count reference ranges are not reported, since discordance with absolute values may lead to misinterpretation of CBC data. Current Interpretive Data was last revised on 2017. Metamyelocyte pct 5.2 % [facility] Myelocyte pct 2.6 % [facility] Blood 06/13/2022 9:33 AM CDT 06/13/2022 10:10 AM CDT us Catherine Adams MD LAB BLOOD ORDERABLES Final Result [facility] [place] [address] * (ABNORMAL) eGFR (06/13/2022 9:33 AM CDT) eGFR 34(L) 90 - 130 mL/min/1. 73 m2 [facility] Comment: Interpretive Data Reference Interval Normal [...] Adams MD LAB BLOOD ORDERABLES Final Result [facility] [place] [address] * (ABNORMAL) Magnesium (06/13/2022 9:33 AM CDT) Magnesium 2.8(H) 1.4 - 2.5 mg/dL [facility] Blood 06/13/2022 9:33 AM CDT 06/13/2022 10:06 AM CDT us Marcelina Lo APPLIANCE COUNSELOR LAB BLOOD ORDERABLES Final Re sult [facility] [place] [address] * (ABNORMAL) Comprehensive metabolic panel (06/13/2022 9:33 AM CDT) Sodium 135 135 - 145 mmol/L [facility] Potassium, pl 5.6(H) 3.3 - 4.9 mmol/L [facility] Chloride 98 97 - 110 mmol/L [facility] CO2 26 22 - 32 mmol/L [facility] Anion gap 11 2 - 15 mmol/L [facility] BUN 19 8 - 25 mg/dL [facility] Creatinine 2.26(H) 0.80 - 1.30 mg/dL [facility] Glucose 217(H) 70 - 199 mg/dL [facility] Comment: Interpretive Data Fasting glucose >/= [...] 8.7 8.5 - 10.3 mg/dL [facility] Bilirubin, total 0.7 0.1 - 1.2 mg/dL [facility] Protein, pl 6.5 6.5 - 8.5 g/dL [facility] Albumin 3.2(L) 3.5 - 5.0 g/dL [facility] Alk phos 300(H) 40 - 130 Units/L [facility] ALT 55 7 - 55 Units/L [facility] AST 90(H) 10 - 50 Units/L [facility] Blood 06/13/2022 9:33 AM CDT 06/13/2022 10:06 AM CDT us Marcelina Lo APPLIANCE COUNSELOR LAB BLOOD ORDERABLES Final Re sult Performing Organization Address [facility] Co de Phone Number [facility] [place] [address] * (ABNORMAL) CBC with auto differential (06/13/2022 9:33 AM CDT) WBC 15.6(H) 3.8 - 9.9 K/cumm [facility] Hgb 7.7(L) 13.0 - 17.5 g/dL [facility] Hct 23.1(L) 38.9 - 50.3 % [facility] Plt 191 150 - 400 K/cumm [facility] MPV 10.9 9.1 - 12.3 fL [facility] RBC 2.45(L) 4.30 - 5.80 M/cumm [facility] MCV 94.3 81.3 - 96.4 fL [facility] MCH 31.4 27.1 - 33.3 pg [facility] MCHC 33.3 32.3 - 35.7 g/dL [facility] RDW CV 13.6 11.1 - 14.9 % [facility] RDW SD 46.7 35.7 - 48.1 fL [facility] NRBC abs 0.05(H) 0.00 - 0.01 K/cumm [facility] Blood 06/13/2022 9:33 AM CDT 06/13/2022 10:06 AM CDT us Marcelina Lo APPLIANCE COUNSELOR LAB BLOOD ORDERABLES Final Re sult [facility] [place] [address] * (ABNORMAL) POCT glucose (06/13/2022 4:40 AM CDT) Glucose, POC 280(H) 70 - 199 mg/dL [facility] Blood 06/13/2022 4:40 AM CDT 06/13/2022 4:40 AM CDT Catherine Adams MD LAB POCT ORDERABLES - DEVIC E Final Result Performing Organization Address [facility] Co de Phone Number [facility] [place] [address] * (ABNORMAL) Blood gas, arterial (06/13/2022 2:26 AM CDT) pH, Art 7.35 7.35 - 7.45 [facility] PCO2, Arterial 42 35 - 45 mmHg [facility] PO2, Arterial 78(L) 83 - 108 mmHg [facility] HCO3 Art (Calculated) 24 20 - 30 mmol/L [facility] BE, art -3 mmol/L [facility] Comment: Interpretive Data No Reference Range Established Current Interpretive Data was last revised on 2017 O2 Sat Art (Measured) 94 90 - 95 % [facility] Blood 06/13/2022 2:26 AM CDT 06/13/2022 2:58 AM CDT us Marcelina Lo APPLIANCE COUNSELOR LAB BLOOD ORDERABLES Final Re sult Performing Organization Address [facility] Co de Phone Number [facility] [place] [address] * (ABNORMAL) Blood gas, arterial (06/13/2022 1:11 AM CDT) pH, Art 7.35 7.35 - 7.45 [facility] PCO2, Arterial 44 35 - 45 mmHg [facility] PO2, Arterial 72(L) 83 - 108 mmHg [facility] HCO3 Art (Calculated) 25 20 - 30 mmol/L [facility] BE, art -1 mmol/L [facility] Comment: Interpretive Data No Reference Range Established Current Interpretive Data was last revised on 2017 O2 Sat Art (Measured) 94 90 - 95 % [facility] Blood 06/13/2022 1:11 AM CDT 06/13/2022 1:30 AM CDT us Marcelina Lo APPLIANCE COUNSELOR LAB BLOOD ORDERABLES Final Re sult Performing Organization Address City/[facility] Co de Phone Number [facility] [place] [address] * Potassium, whole blood (06/13/2022 1:11 AM CDT) Potassium, bld 4.8 3.3 - 4.9 mmol/L [facility] Blood 06/13/2022 1:11 AM CDT 06/13/2022 1:30 AM CDT us Catherine Adams MD LAB BLOOD ORDERABLES Final Result Performing Organization Address [facility] Co de Phone Number [facility] [place] [address] * POCT glucose (06/12/2022 11:26 PM CDT) Glucose, POC 123 70 - 199 mg/dL [facility] Blood 06/12/2022 11:2 6 PM CDT 06/12/2022 11:26 PM CDT Catherine Adams MD LAB POCT ORDERABLES - DEVIC E Final Result Performing Organization Address City/[facility] Co de Phone Number [facility] [place] [address] * Lactate, whole blood (06/12/2022 8:55 PM CDT) Lactate, bld 1.2 0.7 - 2.0 mmol/L [facility] Blood 06/12/2022 8:55 PM CDT 06/12/2022 9:59 PM CDT us Jeffrey Green MD LAB BLOOD ORDERABLES Final Result Performing Organization Address [facility] Co de Phone Number [facility] [place] [address] * (ABNORMAL) eGFR (06/12/2022 8:47 PM CDT) eGFR 35(L) 90 - 130 mL/min/1. 73 m2 [facility] Comment: Interpretive Data Reference Interval Normal [...] ORDERABLES Final Result Performing Organization Address City/[facility] Co de Phone Number [facility] [place] [address] * (ABNORMAL) Differential, auto (06/12/2022 8:47 PM [...] BJ Neutrophil pct 65.3 % [facility] Comment: Confirmed by smear review Interpretive Data Percent cell count reference ranges are not reported, since discordance with absolute values may lead to misinterpretation of CBC data. Current Interpretive Data was last revised on 2017. Imm gran pct 13.1 % [facility] Comment: Interpretive Data Percent cell count reference [...] 2017. Monocyte pct 7.0 % [facility] Comment: Interpretive Data Percent cell count reference [...] ORDERABLES Final Result Performing Organization Address City/[facility]/ZIP Co de Phone Number [facility] [place] [address] * (ABNORMAL) Magnesium (06/12/2022 8:47 PM CDT) Pathologist [facility] Magnesium 2.7(H) 1.4 - 2.5 mg/dL [facility] Blood 06/12/2022 8:47 PM CDT 06/12/2022 10:04 PM CDT Catherine Adams MD LAB BLOOD ORDERABLES Final Result Performing Organization Address [facility] de Phone Number [facility] Department [place] [address] * (ABNORMAL) Comprehensive metabolic panel (06/12/2022 8:47 PM CDT) Pathologist [facility] Sodium 134(L) 135 - 145 mmol/L [facility] Potassium, pl 5.1(H) 3.3 - 4.9 mmol/L [facility] Comment:Hemolyzed; Potassium value may be falsely elevated by as much as 0.6-1.0 mmol/L. Suggest redraw and reanalysis. Chloride 101 97 - 110 mmol/L [facility] CO2 24 22 - 32 mmol/L [facility] Anion gap 9 2 - 15 mmol/L [facility] BUN 19 8 - 25 mg/dL [facility] Creatinine 2.22(H) 0.80 - 1.30 mg/dL [facility] Glucose 101 70 - 199 mg/dL [facility] Comment: Interpretive Data Fasting glucose >/= [...] 2017. Calcium 8.7 8.5 - 10.3 mg/dL [facility] Bilirubin, total 0.8 0.1 - 1.2 mg/dL [facility] Protein, pl 6.5 6.5 - 8.5 g/dL [facility] Albumin 2.7(L) 3.5 - 5.0 g/dL [facility] Alk phos 300(H) 40 - 130 Units/L [facility] ALT 57(H) 7 - 55 Units/L [facility] AST 110(H) 10 - 50 Units/L [facility] Comment:Hemolyzed; result ma y be falsely elevated Blood 06/12/2022 8:47 PM CDT 06/12/2022 10:04 PM CDT Catherine Adams MD LAB BLOOD ORDERABLES Final Result [facility] [place] [address] * (ABNORMAL) Blood gas, arterial (06/12/2022 8:47 PM CDT) pH, Art 7.36 7.35 - 7.45 [facility] PCO2, Arterial 47(H) 35 - 45 mmHg [facility] PO2, Arterial 84 83 - 108 mmHg [facility] HCO3 Art (Calculated) 27 20 - 30 mmol/L [facility] BE, art 1 mmol/L [facility] Comment: Interpretive Data No Reference Range Established Current Interpretive Data was last revised on 2017 O2 Sat Art (Measured) 96(H) 90 - 95 % [facility] Blood 06/12/2022 8:47 PM CDT 06/12/2022 9:59 PM CDT Marcelina Lo NP LAB BLOOD ORDERABLES Final Re sult Performing Organization Address [facility] de Phone Number [facility] [place] [address] * (ABNORMAL) aPTT (06/12/2022 8:47 PM CDT) aPTT 78(H) 27 - 37 sec [facility] Comment: Interpretive Data Therapeutic heparin range: 60.0 - 94.0 seconds. Based on correlation with therapeutic heparin activity range of 0.3-0.7 Units/mL. Current interpretive data was last revised on 2020. Blood 06/12/2022 8:47 PM CDT 06/12/2022 10:12 PM CDT Narrative [facility] - 06/12/2022 10:40 PM CDT Check aPTT 6 hours after the start of Heparin infusion and 6 hours after any change in Heparin rate. (Target aPTT 61-80 seconds). Call Nephrology if outside range. Catherine Adams MD LAB BLOOD ORDERABLES Final Result Performing Organization Address [facility] de Phone Number [facility] Department [place] [address] * (ABNORMAL) Triglycerides (06/12/2022 8:47 PM CDT) Triglycerides 248(H) <=149 mg/dL [facility] Comment: Interpretive Data Ages < [...] PM CDT 06/12/2022 10:04 PM CDT Narrative [facility] - 06/12/2022 10:44 PM CDT While on propofol infusion. Catherine Adams MD LAB BLOOD ORDERABLES Final Result Performing Organization Address [facility] Co de Phone Number [facility] [place] [address] * Phosphorus (06/12/2022 8:47 PM CDT) Phosphorus, pl 3.5 2.3 - 4.5 mg/dL [facility] Blood 06/12/2022 8:47 PM CDT 06/12/2022 10:04 PM CDT us Marcelina Lo NP LAB BLOOD ORDERABLES Final Re sult Performing Organization Address City/[facility] Co de Phone Number [facility] [place] [address] * Beta-hydroxybutyrate (06/12/2022 8:47 PM CDT) Beta-Hydroxybut yrate 0.2 0.0 - 0.5 mmol/L [facility] Blood 06/12/2022 8:47 PM CDT 06/12/2022 10:00 PM CDT us Marcelina Lo APPLIANCE COUNSELOR LAB BLOOD ORDERABLES Edited R esult - Final [facility] [place] [address] * Lipase (06/12/2022 8:47 PM CDT) Pathologist [facility] Lipase 16 10 - 99 Units/L [facility] Blood 06/12/2022 8:47 PM CDT 06/12/2022 10:04 PM CDT Marcelina Lo APPLIANCE COUNSELOR LAB BLOOD ORDERABLES Final Re sult Performing Organization Address [facility]/ZIP Co de Phone Number [facility] [place] [address] * (ABNORMAL) CBC with auto differential (06/12/2022 8:47 PM CDT) [facility] WBC 14.6(H) 3.8 - 9.9 K/cumm [facility] Hgb 8.1(L) 13.0 - 17.5 g/dL [facility] Hct 24.7(L) 38.9 - 50.3 % [facility] Plt 207 150 - 400 K/cumm [facility] MPV 11.0 9.1 - 12.3 fL [facility] RBC 2.61(L) 4.30 - 5.80 M/cumm [facility] MCV 94.6 81.3 - 96.4 fL [facility] MCH 31.0 27.1 - 33.3 pg [facility] MCHC 32.8 32.3 - 35.7 g/dL [facility] RDW CV 13.4 11.1 - 14.9 % [facility] RDW SD 45.9 35.7 - 48.1 fL [facility] NRBC abs 0.03(H) 0.00 - 0.01 K/cumm [facility] Blood 06/12/2022 8:47 PM CDT 06/12/2022 10:10 PM CDT us Marcelina Lo APPLIANCE COUNSELOR LAB BLOOD ORDERABLES Final Re sult Performing Organization Address [facility] Co de Phone Number [facility] [place] [address] * POCT glucose (06/12/2022 8:44 PM CDT) Glucose, POC 99 70 - 199 mg/dL [facility] Blood 06/12/2022 8:44 PM CDT 06/12/2022 8:44 PM CDT Catherine Adams MD LAB POCT ORDERABLES - DEVIC E Final Result Performing Organization Address [facility] Co de Phone Number [facility] [place] [address] * POCT glucose (06/12/2022 4:01 PM CDT) Glucose, POC 110 70 - 199 mg/dL [facility] Blood 06/12/2022 4:01 PM CDT 06/12/2022 4:01 PM CDT Catherine Adams MD LAB POCT ORDERABLES - DEVIC E Final Result Performing Organization Address [facility] Co de Phone Number [facility] Department [place] [address] * (ABNORMAL) aPTT (06/12/2022 4:01 PM CDT) aPTT 75(H) 27 - 37 sec [facility] Comment: Interpretive Data Therapeutic heparin range: 60.0 - 94.0 seconds. Based on correlation with therapeutic heparin activity range of 0.3-0.7 Units/mL. Current interpretive data was last revised on 2020. Blood 06/12/2022 4:01 PM CDT 06/12/2022 4:27 PM CDT Narrative [facility] - 06/12/2022 4:48 PM CDT Check aPTT 6 hours after the start of Heparin infusion and 6 hours after any change in Heparin rate. (Target aPTT 61-80 seconds). Call Nephrology if outside range. Catherine Adams MD LAB BLOOD ORDERABLES Final Result Performing Organization Address [facility] de Phone Number [facility] [place] [address] * Blood gas, arterial (06/12/2022 4:01 PM CDT) pH, Art 7.42 7.35 - 7.45 [facility] PCO2, Arterial 41 35 - 45 mmHg [facility] PO2, Arterial 94 83 - 108 mmHg [facility] HCO3 Art (Calculated) 27 20 - 30 mmol/L [facility] BE, art 2 mmol/L [facility] Comment: Interpretive Data No Reference Range Established Current Interpretive Data was last revised on 2017 Blood 06/12/2022 4:01 PM CDT 06/12/2022 4:16 PM CDT Marcelina Lo NP LAB BLOOD ORDERABLES Final Re sult Performing Organization Address [facility] de Phone Number [facility] [place] [address] * Aerobic culture and gram stain Tracheal aspirate Tracheal (06/12/2022 2:31 PM CDT) Direct Specimen Exam Stain: Rare polymorphonuclear leukocytes seen. Few squamous epithelial cells seen. Rare mixed bacterial stone seen on Gram stain. [facility] Report Final Report: Insignificant growth based on current clinical standards. [facility] Tracheal aspirate (Tracheal) 06/12/2022 2:31 PM CDT 06/12/2022 3:47 PM CDT Narrative [facility] - 06/14/2022 11:49 AM CDT Testing performed by [facility] ([phone]) Specimens submitted from normally sterile body sites [...] - GENERAL ORDERABLES Final Result [facility] [place] [address] * XR Chest 1 View (06/12/2022 1:10 [...] Art 7.41 7.35 - 7.45 [facility] PCO2, Arterial 38 35 - 45 mmHg [facility] PO2, Arterial 135(H) 83 - 108 mmHg [facility] HCO3 Art (Calculated) 25 20 - 30 mmol/L [facility] BE, art 0 mmol/L [facility] Comment: Interpretive Data No Reference Range Established Current Interpretive Data was last revised on 2017 O2 Sat Art (Measured) 97(H) 90 - 95 % [facility] Blood 06/12/2022 12:5 6 PM CDT 06/12/2022 1:02 PM CDT us Marcelina Lo APPLIANCE COUNSELOR LAB BLOOD ORDERABLES Final Re sult [facility] [place] [address] * (ABNORMAL) Blood gas, arterial (06/12/2022 11:37 AM CDT) pH, Art 7.41 7.35 - 7.45 [facility] PCO2, Arterial 40 35 - 45 mmHg [facility] PO2, Arterial 82(L) 83 - 108 mmHg [facility] HCO3 Art (Calculated) 26 20 - 30 mmol/L [facility] BE, art 0 mmol/L [facility] Comment: Interpretive Data No Reference Range Established Current Interpretive Data was last revised on 2017 O2 Sat Art (Measured) 96(H) 90 - 95 % [facility] Blood 06/12/2022 11:3 7 AM CDT 06/12/2022 11:43 AM CDT Marcelina Lo APPLIANCE COUNSELOR LAB BLOOD ORDERABLES Final Re sult Performing Organization Address [facility] de Phone Number [facility] [place] [address] * POCT glucose (06/12/2022 11:36 AM CDT) Glucose, POC 161 70 - 199 mg/dL [facility] Blood 06/12/2022 11:3 6 AM CDT 06/12/2022 11:36 AM CDT Catherine Adams MD LAB POCT ORDERABLES - DEVIC E Final Result Performing Organization Address [facility] de Phone Number [facility] [place] [address] * (ABNORMAL) Blood gas, arterial (06/12/2022 9:53 AM CDT) pH, Art 7.42 7.35 - 7.45 [facility] PCO2, Arterial 36 35 - 45 mmHg [facility] PO2, Arterial 106 83 - 108 mmHg [facility] HCO3 Art (Calculated) 25 20 - 30 mmol/L [facility] BE, art 0 mmol/L [facility] Comment: Interpretive Data No Reference Range Established Current Interpretive Data was last revised on 2017 O2 Sat Art (Measured) 98(H) 90 - 95 % [facility] Blood 06/12/2022 9:53 AM CDT 06/12/2022 10:02 AM CDT Marcelina Lo APPLIANCE COUNSELOR LAB BLOOD ORDERABLES Final Re sult [facility] [place] [address] * (ABNORMAL) Manual Differential (06/12/2022 8:02 AM CDT) Differential Manual [facility] Cells Counted 116 [facility] Neutrophil abs 9.1(H) 1.7 - 6.5 K/cumm [facility] Imm gran abs 0.8(H) 0.0 - 0.1 K/cumm [facility] Lymphocyte abs 1.9 0.8 - 3.3 K/cumm [facility] Monocyte abs 0.3 0.2 - 0.8 K/cumm [facility] Eosinophil abs 0.4 0.0 - 0.5 K/cumm [facility] Neutrophil pct 72.5 % [facility] Comment: Interpretive Data Percent cell count reference ranges are not reported, since discordance with absolute values may lead to misinterpretation of CBC data. Current Interpretive Data was last revised on 2017. Lymphocyte pct 15.5 % [facility] Comment: Interpretive Data Percent cell count reference ranges are not reported, since discordance with absolute values may lead to misinterpretation of CBC data. Current Interpretive Data was last revised on 2017. Monocyte pct 2.6 % [facility] Comment: Interpretive Data Percent cell count reference ranges are not reported, since discordance with absolute values may lead to misinterpretation of CBC data. Current Interpretive Data was last revised on 2017. Eosinophil pct 3.4 % [facility] Comment: Interpretive Data Percent cell count reference ranges are not reported, since discordance with absolute values may lead to misinterpretation of CBC data. Current Interpretive Data was last revised on 2017. Metamyelocyte pct 2.6 % [facility] Myelocyte pct 3.4 % [facility] Blood 06/12/2022 8:02 AM CDT 06/12/2022 8:32 AM CDT Catherine Adams MD LAB BLOOD ORDERABLES Final Result [facility] [place] [address] * (ABNORMAL) eGFR (06/12/2022 8:02 AM CDT) Pathologist [facility] eGFR 31(L) 90 - 130 mL/min/1. 73 m2 [facility] Comment: Interpretive Data Reference Interval Normal ?>/= [...] BLOOD ORDERABLES Final Result [facility] [place] [address] * (ABNORMAL) aPTT (06/12/2022 8:02 AM CDT) [facility] aPTT 70(H) 27 - 37 sec [facility] Comment: Interpretive Data Therapeutic heparin range: 60.0 - 94.0 seconds. Based on correlation with therapeutic heparin activity range of 0.3-0.7 Units/mL. Current interpretive data was last revised on 2020. Blood 06/12/2022 8:02 AM CDT 06/12/2022 8:15 AM CDT Narrative [facility] - 06/12/2022 8:43 AM CDT Check aPTT 6 hours after the start of Heparin infusion and 6 hours after any change in Heparin rate. (Target aPTT 61-80 seconds). Call Nephrology if outside range. us Catherine Adams MD LAB BLOOD ORDERABLES Final Result Performing Organization Address [facility] de Phone Number [facility] [place] [address] * (ABNORMAL) Blood gas, arterial (06/12/2022 8:02 AM CDT) pH, Art 7.47(H) 7.35 - 7.45 [facility] PCO2, Arterial 34(L) 35 - 45 mmHg [facility] PO2, Arterial 71(L) 83 - 108 mmHg [facility] HCO3 Art (Calculated) 25 20 - 30 mmol/L [facility] BE, art 1 mmol/L [facility] Comment: Interpretive Data No Reference Range Established Current Interpretive Data was last revised on 2017 O2 Sat Art (Measured) 95 90 - 95 % [facility] Blood 06/12/2022 8:02 AM CDT 06/12/2022 8:13 AM CDT us Marcelina Lo NP LAB BLOOD ORDERABLES Final Re sult Performing Organization Address [facility] Co de Phone Number [facility] [place] [address] * Magnesium (06/12/2022 8:02 AM CDT) Magnesium 2.5 1.4 - 2.5 mg/dL [facility] Blood 06/12/2022 8:02 AM CDT 06/12/2022 8:28 AM CDT us Marcelina Lo APPLIANCE COUNSELOR LAB BLOOD ORDERABLES Final Re sult [facility] [place] [address] * (ABNORMAL) Comprehensive metabolic panel (06/12/2022 8:02 AM CDT) Pathologist [facility] Sodium 135 135 - 145 mmol/L [facility] Potassium, pl 4.4 3.3 - 4.9 mmol/L [facility] Chloride 101 97 - 110 mmol/L [facility] CO2 26 22 - 32 mmol/L [facility] Anion gap 8 2 - 15 mmol/L [facility] BUN 23 8 - 25 mg/dL [facility] Creatinine 2.45(H) 0.80 - 1.30 mg/dL [facility] Glucose 157 70 - 199 mg/dL [facility] Comment: Interpretive Data Fasting glucose >/= [...] 2017. Calcium 8.4(L) 8.5 - 10.3 mg/dL [facility] Bilirubin, total 0.7 0.1 - 1.2 mg/dL [facility] Protein, pl 5.8(L) 6.5 - 8.5 g/dL [facility] Albumin 2.6(L) 3.5 - 5.0 g/dL [facility] Alk phos 248(H) 40 - 130 Units/L [facility] ALT 49 7 - 55 Units/L [facility] AST 95(H) 10 - 50 Units/L [facility] Blood 06/12/2022 8:02 AM CDT 06/12/2022 8:28 AM CDT Marcelina Lo APPLIANCE COUNSELOR LAB BLOOD ORDERABLES Final Re sult Performing Organization Address City/[facility]/ZIP Co de Phone Number [facility] [place] [address] * (ABNORMAL) CBC with auto differential (06/12/2022 8:02 AM CDT) WBC 12.5(H) 3.8 - 9.9 K/cumm [facility] Hgb 7.5(L) 13.0 - 17.5 g/dL [facility] Hct 22.3(L) 38.9 - 50.3 % [facility] Plt 174 150 - 400 K/cumm [facility] MPV 11.0 9.1 - 12.3 fL [facility] RBC 2.36(L) 4.30 - 5.80 M/cumm [facility] MCV 94.5 81.3 - 96.4 fL [facility] MCH 31.8 27.1 - 33.3 pg [facility] MCHC 33.6 32.3 - 35.7 g/dL [facility] RDW CV 13.5 11.1 - 14.9 % [facility] RDW SD 45.5 35.7 - 48.1 fL [facility] NRBC abs 0.02(H) 0.00 - 0.01 K/cumm [facility] Blood 06/12/2022 8:02 AM CDT 06/12/2022 8:27 AM CDT Marcelina Lo APPLIANCE COUNSELOR LAB BLOOD ORDERABLES Final Re sult [facility] [email or web address] [address] * POCT glucose (06/12/2022 8:01 AM CDT) Glucose, POC 143 70 - 199 mg/dL [facility] Blood 06/12/2022 8:01 AM CDT 06/12/2022 8:01 AM CDT us Catherine Adams MD LAB POCT ORDERABLES - DEVIC E Final Result Performing Organization Address [facility] de Phone Number [facility] [place] [address] * (ABNORMAL) Blood gas, arterial (06/12/2022 6:21 AM CDT) pH, Art 7.41 7.35 - 7.45 [facility] PCO2, Arterial 40 35 - 45 mmHg [facility] PO2, Arterial 86 83 - 108 mmHg [facility] HCO3 Art (Calculated) 26 20 - 30 mmol/L [facility] BE, art 1 mmol/L [facility] Comment: Interpretive Data No Reference Range Established Current Interpretive Data was last revised on 2017 O2 Sat Art (Measured) 96(H) 90 - 95 % [facility] Blood 06/12/2022 6:21 AM CDT 06/12/2022 6:29 AM CDT Result [facility] us Catherine Adams MD LAB BLOOD ORDERABLES Final Result Performing Organization Address [facility] de Phone Number [facility] [place] [address] * POCT glucose (06/12/2022 4:57 AM CDT) Glucose, POC 163 70 - 199 mg/dL [facility] Blood 06/12/2022 4:57 AM CDT 06/12/2022 4:57 AM CDT us Catherine Adams MD LAB POCT ORDERABLES - DEVIC E Final Result Performing Organization Address [facility] [place] [address] * (ABNORMAL) aPTT (06/12/2022 1:52 AM CDT) aPTT 52(H) 27 - 37 sec [facility] Comment: Interpretive Data Therapeutic heparin range: 60.0 - 94.0 seconds. Based on correlation with therapeutic heparin activity range of 0.3-0.7 Units/mL. Current interpretive data was last revised on 2020. Blood 06/12/2022 1:52 AM CDT 06/12/2022 2:15 AM CDT Narrative [facility] - 06/12/2022 2:39 AM CDT Check aPTT 6 hours after the start of Heparin infusion and 6 hours after any change in Heparin rate. (Target aPTT 61-80 seconds). Call Nephrology if outside range. Catherine Adams MD LAB BLOOD ORDERABLES Final Result Performing Organization Address [facility] [place] [address] * (ABNORMAL) POCT glucose (06/11/2022 11:32 PM CDT) Glucose, POC 206(H) 70 - 199 mg/dL [facility] Blood 06/11/2022 11:3 2 PM CDT 06/11/2022 11:32 PM CDT Catherine Adams MD LAB POCT ORDERABLES - DEVIC E Final Result Performing Organization Address [facility] Co de Phone Number [facility] [place] [address] * (ABNORMAL) Manual Differential (06/11/2022 11:25 PM CDT) Differential Manual [facility] Cells Counted 119 [facility] Neutrophil abs 10.8(H) 1.7 - 6.5 K/cumm [facility] Imm gran abs 0.6(H) 0.0 - 0.1 K/cumm [facility] Lymphocyte abs 1.4 0.8 - 3.3 K/cumm [facility] Monocyte abs 0.6 0.2 - 0.8 K/cumm [facility] Eosinophil abs 0.2 0.0 - 0.5 K/cumm [facility] Neutrophil pct 79.9 % [facility] Comment: Interpretive Data Percent cell count reference ranges are not reported, since discordance with absolute values may lead to misinterpretation of CBC data. Current Interpretive Data was last revised on 2017. Lymphocyte pct 10.1 % [facility] Comment: Interpretive Data Percent cell count reference ranges are not reported, since discordance with absolute values may lead to misinterpretation of CBC data. Current Interpretive Data was last revised on 2017. Monocyte pct 4.2 % [facility] Comment: Interpretive Data Percent cell count reference ranges are not reported, since discordance with absolute values may lead to misinterpretation of CBC data. Current Interpretive Data was last revised on 2017. Eosinophil pct 1.7 % [facility] Comment: Interpretive Data Percent cell count reference ranges are not reported, since discordance with absolute values may lead to misinterpretation of CBC data. Current Interpretive Data was last revised on 2017. Metamyelocyte pct 0.8 % [facility] Myelocyte pct 2.5 % [facility] Promyelocyte pct 0.8 % [facility] Blood 06/11/2022 11:2 5 PM CDT 06/11/2022 11:39 PM CDT us Jeffrey Green MD LAB BLOOD ORDERABLES Final Result [facility] [place] [address] * (ABNORMAL) CBC with auto differential (06/11/2022 11:25 PM CDT) Pathologist [facility] WBC 13.5(H) 3.8 - 9.9 K/cumm [facility] Hgb 7.9(L) 13.0 - 17.5 g/dL [facility] Hct 23.7(L) 38.9 - 50.3 % [facility] Plt 188 150 - 400 K/cumm [facility] MPV 10.7 9.1 - 12.3 fL [facility] RBC 2.55(L) 4.30 - 5.80 M/cumm [facility] MCV 92.9 81.3 - 96.4 fL [facility] MCH 31.0 27.1 - 33.3 pg [facility] MCHC 33.3 32.3 - 35.7 g/dL [facility] RDW CV 13.3 11.1 - 14.9 % [facility] RDW SD 45.1 35.7 - 48.1 fL [facility] NRBC abs 0.02(H) 0.00 - 0.01 K/cumm [facility] Blood 06/11/2022 11:2 5 PM CDT 06/11/2022 11:35 PM CDT Jeffrey Green MD LAB BLOOD ORDERABLES Final Result [facility] [place] [address] * (ABNORMAL) Blood gas, arterial (06/11/2022 11:25 PM CDT) [facility] pH, Art 7.37 7.35 - 7.45 [facility] PCO2, Arterial 41 35 - 45 mmHg [facility] PO2, Arterial 91 83 - 108 mmHg [facility] HCO3 Art (Calculated) 24 20 - 30 mmol/L [facility] BE, art -1 mmol/L [facility] Comment: Interpretive Data No Reference Range Established Current Interpretive Data was last revised on 2017 O2 Sat Art (Measured) 97(H) 90 - 95 % [facility] Blood 06/11/2022 11:2 5 PM CDT 06/11/2022 11:31 PM CDT Marcelina Lo APPLIANCE COUNSELOR LAB BLOOD ORDERABLES Final Re sult Performing Organization Address [facility] Co de Phone Number [facility] [place] [address] * (ABNORMAL) Blood gas, arterial (06/11/2022 8:17 PM CDT) pH, Art 7.38 7.35 - 7.45 [facility] PCO2, Arterial 39 35 - 45 mmHg [facility] PO2, Arterial 111(H) 83 - 108 mmHg [facility] HCO3 Art (Calculated) 23 20 - 30 mmol/L [facility] BE, art -2 mmol/L [facility] Comment: Interpretive Data No Reference Range Established Current Interpretive Data was last revised on 2017 O2 Sat Art (Measured) 98(H) 90 - 95 % [facility] Blood 06/11/2022 8:17 PM CDT 06/11/2022 8:23 PM CDT Marcelina Lo APPLIANCE COUNSELOR LAB BLOOD ORDERABLES Final Re sult Performing Organization Address [facility] [place] [address] * Lactate, whole blood (06/11/2022 8:17 PM CDT) Pathologist [facility] Lactate, bld 0.8 0.7 - 2.0 mmol/L [facility] Blood 06/11/2022 8:17 PM CDT 06/11/2022 8:23 PM CDT Marcelina Lo APPLIANCE COUNSELOR LAB BLOOD ORDERABLES Final Re sult Performing Organization Address [facility] Co de Phone Number [facility] [place] [address] * (ABNORMAL) eGFR (06/11/2022 8:12 PM CDT) eGFR 24(L) 90 - 130 mL/min/1. 73 m2 [facility] Comment: Interpretive Data Reference Interval [...] Adams MD LAB BLOOD ORDERABLES Final Result [facility] [place] [address] * Magnesium (06/11/2022 8:12 PM CDT) Magnesium 2.5 1.4 - 2.5 mg/dL [facility] Blood 06/11/2022 8:12 PM CDT 06/11/2022 8:23 PM CDT us Catherine Adams MD LAB BLOOD ORDERABLES Final Result [facility] [place] [address] * (ABNORMAL) Comprehensive metabolic panel (06/11/2022 8:12 PM CDT) Pathologist [facility] Sodium 135 135 - 145 mmol/L [facility] Potassium, pl 4.7 3.3 - 4.9 mmol/L [facility] Chloride 101 97 - 110 mmol/L [facility] CO2 23 22 - 32 mmol/L [facility] Anion gap 11 2 - 15 mmol/L [facility] BUN 28(H) 8 - 25 mg/dL [facility] Creatinine 3.01(H) 0.80 - 1.30 mg/dL [facility] Glucose 185 70 - 199 mg/dL [facility] Comment: Interpretive Data Fasting glucose >/= [...] 8.1(L) 8.5 - 10.3 mg/dL [facility] Bilirubin, total 0.9 0.1 - 1.2 mg/dL [facility] Protein, pl 5.5(L) 6.5 - 8.5 g/dL [facility] Albumin 2.3(L) 3.5 - 5.0 g/dL [facility] Alk phos 211(H) 40 - 130 Units/L [facility] ALT 45 7 - 55 Units/L [facility] AST 95(H) 10 - 50 Units/L [facility] Blood 06/11/2022 8:12 PM CDT 06/11/2022 8:23 PM CDT Catherine Adams MD LAB BLOOD ORDERABLES Final Result Performing Organization Address [facility] de Phone Number [facility] [place] [address] * (ABNORMAL) Triglycerides (06/11/2022 8:12 PM CDT) Triglycerides 345(H) <=149 mg/dL [facility] Comment: Interpretive Data Ages < [...] PM CDT 06/11/2022 8:23 PM CDT Narrative [facility] - 06/11/2022 8:53 PM CDT While on propofol infusion. Catherine Adams MD LAB BLOOD ORDERABLES Final Result Performing Organization Address City/[facility] de Phone Number [facility] [place] [address] * Phosphorus (06/11/2022 8:12 PM CDT) Phosphorus, pl 4.4 2.3 - 4.5 mg/dL [facility] Blood 06/11/2022 8:12 PM CDT 06/11/2022 8:23 PM CDT Marcelina Lo APPLIANCE COUNSELOR LAB BLOOD ORDERABLES Final Re sult Performing Organization Address City/[facility]/[place] [address] * Beta-hydroxybutyrate (06/11/2022 8:12 PM CDT) [facility] Beta-Hydroxybut yrate 0.3 0.0 - 0.5 mmol/L [facility] Blood 06/11/2022 8:12 PM CDT 06/11/2022 8:23 PM CDT Marcelina Lo APPLIANCE COUNSELOR LAB BLOOD ORDERABLES Edited R esult - Final Performing Organization Address [facility] [place] [address] * Lipase (06/11/2022 8:12 PM CDT) Pathologist [facility] Lipase 15 10 - 99 Units/L [facility] Blood 06/11/2022 8:12 PM CDT 06/11/2022 8:23 PM CDT Marcelina Lo APPLIANCE COUNSELOR LAB BLOOD ORDERABLES Final Re sult Performing Organization Address [facility] Co de Phone Number [facility] [place] [address] * POCT glucose (06/11/2022 8:07 PM CDT) Glucose, POC 169 70 - 199 mg/dL [facility] Blood 06/11/2022 8:07 PM CDT 06/11/2022 8:07 PM CDT Catherine Adams MD LAB POCT ORDERABLES - DEVIC E Final Result [facility] [place] [address] * XR Chest 1 View (06/11/2022 4:07 PM CDT) Anatomical Region Laterality Modality Body, Chest N/A Computed Radiogr aphy 06/11/2022 5:24 PM CDT Impressions 06/11/2022 5:24 PM CDT Comparison made to examination of 06/11/2022 at 0543 hours Tip of the endotracheal tube projects approximately 5.5 cm above the boni. ??Nasogastric tube extends below the diaphragm with the tip excluded from the [id number]. ??Left internal jugular catheter projects at superior [...] diaphragm with the tip excluded from the [id number]. Left internal jugular catheter projects at superior [...] Potassium, bld 4.5 3.3 - 4.9 mmol/L [facility] Blood 06/11/2022 3:21 PM CDT 06/11/2022 3:29 PM CDT Marcelina Lo APPLIANCE COUNSELOR LAB BLOOD ORDERABLES Final Re sult [facility] [place] [address] * Lactate, whole blood (06/11/2022 3:21 PM CDT) Pathologist [facility] Lactate, bld 0.9 0.7 - 2.0 mmol/L [facility] Blood 06/11/2022 3:21 PM CDT 06/11/2022 3:29 PM CDT Marcelina Lo APPLIANCE COUNSELOR LAB BLOOD ORDERABLES Final Re sult Performing Organization Address City/[facility]/ZIP Co de Phone Number [facility] [place] [address] * (ABNORMAL) Blood gas, arterial (06/11/2022 3:21 PM CDT) pH, Art 7.39 7.35 - 7.45 [facility] PCO2, Arterial 39 35 - 45 mmHg [facility] PO2, Arterial 92 83 - 108 mmHg [facility] HCO3 Art (Calculated) 24 20 - 30 mmol/L [facility] BE, art -1 mmol/L [facility] Comment: Interpretive Data No Reference Range Established Current Interpretive Data was last revised on 2017 O2 Sat Art (Measured) 96(H) 90 - 95 % [facility] Blood 06/11/2022 3:21 PM CDT 06/11/2022 3:29 PM CDT Marcelina Lo NP LAB BLOOD ORDERABLES Final Re sult Performing Organization Address [facility] de Phone Number [facility] [place] [address] * aPTT (06/11/2022 3:21 PM CDT) aPTT 30 27 - 37 sec [facility] Comment: Interpretive Data Therapeutic heparin range: 60.0 - 94.0 seconds. Based on correlation with therapeutic heparin activity range of 0.3-0.7 Units/mL. Current interpretive data was last revised on 2020. Blood 06/11/2022 3:21 PM CDT 06/11/2022 3:30 PM CDT Catherine Adams MD LAB BLOOD ORDERABLES Final Result Performing Organization Address [facility] de Phone Number [facility] [place] [address] * Protime-INR (06/11/2022 3:21 PM CDT) PT 10.7 9.2 - 13.5 sec [facility] INR 1.0 0.9 - 1.2 [facility] Comment: Interpretive data Oral anticoagulant therapeutic ranges: Venous thromboembolism prophylaxis or treatment: 2.0-3.0 CARDIOLOGY Standard range: 2.0-3.0 High-intensity range: 2.5-3.5 Refer to indication-specific guidelines for appropriate target ranges for prosthetic heart valve replacement. Current interpretive data was last revised on 2019. Blood 06/11/2022 3:21 PM CDT 06/11/2022 3:30 PM CDT Catherine Adams MD LAB BLOOD ORDERABLES Final Result Performing Organization Address City/[facility] Co de Phone Number [facility] [place] [address] * (ABNORMAL) CBC without differential (06/11/2022 3:21 PM CDT) WBC 10.7(H) 3.8 - 9.9 K/cumm [facility] Hgb 7.6(L) 13.0 - 17.5 g/dL [facility] Hct 22.8(L) 38.9 - 50.3 % [facility] Plt 175 150 - 400 K/cumm [facility] MPV 10.7 9.1 - 12.3 fL [facility] RBC 2.45(L) 4.30 - 5.80 M/cumm [facility] MCV 93.1 81.3 - 96.4 fL [facility] MCH 31.0 27.1 - 33.3 pg [facility] MCHC 33.3 32.3 - 35.7 g/dL [facility] RDW CV 13.1 11.1 - 14.9 % [facility] RDW SD 44.3 35.7 - 48.1 fL [facility] NRBC abs 0.02(H) 0.00 - 0.01 K/cumm [facility] Blood 06/11/2022 3:21 PM CDT 06/11/2022 3:30 PM CDT Catherine Adams MD LAB BLOOD ORDERABLES Final Result [facility] Department [place] [address] * POCT glucose (06/11/2022 3:20 PM CDT) Glucose, POC 130 70 - 199 mg/dL [facility] Blood 06/11/2022 3:20 PM CDT 06/11/2022 3:20 PM CDT Catherine Adams MD LAB POCT ORDERABLES - DEVIC E Final Result [facility] [place] [address] * CT Chest Abdomen Pelvis WO Contrast [...] CDT) pH, Art 7.38 7.35 - 7.45 [facility] PCO2, Arterial 37 35 - 45 mmHg [facility] PO2, Arterial 139(H) 83 - 108 mmHg [facility] HCO3 Art (Calculated) 22 20 - 30 mmol/L [facility] BE, art -3 mmol/L [facility] Comment: Interpretive Data No Reference Range Established Current Interpretive Data was last revised on 2017 O2 Sat Art (Measured) 98(H) 90 - 95 % [facility] Blood 06/11/2022 12:1 1 PM CDT 06/11/2022 12:23 PM CDT Catherine Adams MD LAB BLOOD ORDERABLES Final Result [facility] [place] [address] * POCT glucose (06/11/2022 12:10 PM CDT) Glucose, POC 142 70 - 199 mg/dL [facility] Blood 06/11/2022 12:1 0 PM CDT 06/11/2022 12:10 PM CDT us Catherine Adams MD LAB POCT ORDERABLES - DEVIC E Final Result [facility] [place] [address] * (ABNORMAL) Manual Differential (06/11/2022 8:48 AM CDT) Differential Manual [facility] Cells Counted 120 [facility] Neutrophil abs 7.3(H) 1.7 - 6.5 K/cumm [facility] Imm gran abs 1.0(H) 0.0 - 0.1 K/cumm [facility] Lymphocyte abs 1.4 0.8 - 3.3 K/cumm [facility] Monocyte abs 0.4 0.2 - 0.8 K/cumm [facility] Eosinophil abs 0.3 0.0 - 0.5 K/cumm [facility] Neutrophil pct 70.0 % [facility] Comment: Interpretive Data Percent cell count reference ranges are not reported, since discordance with absolute values may lead to misinterpretation of CBC data. Current Interpretive Data was last revised on 2017. Lymphocyte pct 13.3 % [facility] Comment: Interpretive Data Percent cell count reference ranges are not reported, since discordance with absolute values may lead to misinterpretation of CBC data. Current Interpretive Data was last revised on 2017. Monocyte pct 4.2 % [facility] Comment: Interpretive Data Percent cell count reference ranges are not reported, since discordance with absolute values may lead to misinterpretation of CBC data. Current Interpretive Data was last revised on 2017. Eosinophil pct 3.3 % [facility] Comment: Interpretive Data Percent cell count reference ranges are not reported, since discordance with absolute values may lead to misinterpretation of CBC data. Current Interpretive Data was last revised on 2017. Metamyelocyte pct 6.7 % [facility] Myelocyte pct 2.5 % [facility] Blood 06/11/2022 8:48 AM CDT 06/11/2022 9:14 AM CDT us Catherine Adams MD LAB BLOOD ORDERABLES Final Result Performing Organization Address [facility] Co de Phone Number [facility] [place] [address] * (ABNORMAL) eGFR (06/11/2022 8:48 AM CDT) eGFR 30(L) 90 - 130 mL/min/1. 73 m2 [facility] Comment: Interpretive Data Reference Interval Normal ?>/= [...] ORDERABLES Final Result Performing Organization Address City/[facility]/ZIP Co de Phone Number [facility] [place] [address] * Lactate, whole blood (06/11/2022 8:48 AM CDT) Pathologist [facility] Lactate, bld 1.1 0.7 - 2.0 mmol/L [facility] Blood 06/11/2022 8:48 AM CDT 06/11/2022 8:55 AM CDT Marcelina Lo APPLIANCE COUNSELOR LAB BLOOD ORDERABLES Final Re sult [facility] [place] [address] * Magnesium (06/11/2022 8:48 AM CDT) [facility] Magnesium 2.5 1.4 - 2.5 mg/dL [facility] Blood 06/11/2022 8:48 AM CDT 06/11/2022 9:02 AM CDT Marcelina Lo APPLIANCE COUNSELOR LAB BLOOD ORDERABLES Final Re sult Performing Organization Address City/[facility]/ZIP Co de Phone Number [facility] [place] [address] * (ABNORMAL) Comprehensive metabolic panel (06/11/2022 8:48 AM CDT) [facility] Sodium 134(L) 135 - 145 mmol/L [facility] Potassium, pl 4.8 3.3 - 4.9 mmol/L [facility] Chloride 100 97 - 110 mmol/L [facility] CO2 23 22 - 32 mmol/L [facility] Anion gap 11 2 - 15 mmol/L [facility] BUN 22 8 - 25 mg/dL [facility] Creatinine 2.53(H) 0.80 - 1.30 mg/dL [facility] Glucose 175 70 - 199 mg/dL [facility] Comment: Interpretive Data Fasting glucose >/= [...] 2017. Calcium 8.4(L) 8.5 - 10.3 mg/dL [facility] Bilirubin, total 0.9 0.1 - 1.2 mg/dL [facility] Protein, pl 6.0(L) 6.5 - 8.5 g/dL [facility] Albumin 2.8(L) 3.5 - 5.0 g/dL [facility] Alk phos 200(H) 40 - 130 Units/L [facility] ALT 47 7 - 55 Units/L [facility] AST 100(H) 10 - 50 Units/L [facility] Blood 06/11/2022 8:48 AM CDT 06/11/2022 9:02 AM CDT us Marcelina Lo APPLIANCE COUNSELOR LAB BLOOD ORDERABLES Final Re sult [facility] [place] [address] * (ABNORMAL) CBC with auto differential (06/11/2022 8:48 AM CDT) WBC 10.4(H) 3.8 - 9.9 K/cumm [facility] Hgb 7.8(L) 13.0 - 17.5 g/dL [facility] Hct 23.4(L) 38.9 - 50.3 % [facility] Plt 191 150 - 400 K/cumm [facility] MPV 10.7 9.1 - 12.3 fL [facility] RBC 2.49(L) 4.30 - 5.80 M/cumm [facility] MCV 94.0 81.3 - 96.4 fL [facility] MCH 31.3 27.1 - 33.3 pg [facility] MCHC 33.3 32.3 - 35.7 g/dL [facility] RDW CV 13.2 11.1 - 14.9 % [facility] RDW SD 45.3 35.7 - 48.1 fL [facility] NRBC abs 0.03(H) 0.00 - 0.01 K/cumm [facility] Blood 06/11/2022 8:48 AM CDT 06/11/2022 9:02 AM CDT us Marcelina Lo NP LAB BLOOD ORDERABLES Final Re sult Performing Organization Address City/[facility]/ZIP Co de Phone Number [facility] [place] [address] * POCT glucose (06/11/2022 8:46 AM CDT) Glucose, POC 169 70 - 199 mg/dL [facility] Blood 06/11/2022 8:46 AM CDT 06/11/2022 8:46 AM CDT us Catherine Adams MD LAB POCT ORDERABLES - DEVIC E Final Result Performing Organization Address [facility] Co de Phone Number [facility] [place] [address] * (ABNORMAL) Blood gas, arterial (06/11/2022 6:34 AM CDT) pH, Art 7.43 7.35 - 7.45 [facility] PCO2, Arterial 34(L) 35 - 45 mmHg [facility] PO2, Arterial 87 83 - 108 mmHg [facility] HCO3 Art (Calculated) 24 20 - 30 mmol/L [facility] BE, art -1 mmol/L [facility] Comment: Interpretive Data No Reference Range Established Current Interpretive Data was last revised on 2017 O2 Sat Art (Measured) 97(H) 90 - 95 % [facility] Blood 06/11/2022 6:34 AM CDT 06/11/2022 6:44 AM CDT Catherine Adams MD LAB BLOOD ORDERABLES Final Result [facility] [place] [address] * XR Chest 1 View (06/11/2022 5:48 [...] CDT) pH, Art 7.42 7.35 - 7.45 [facility] PCO2, Arterial 36 35 - 45 mmHg [facility] PO2, Arterial 115(H) 83 - 108 mmHg [facility] HCO3 Art (Calculated) 24 20 - 30 mmol/L [facility] BE, art -1 mmol/L [facility] Comment: Interpretive Data No Reference Range Established Current Interpretive Data was last revised on 2017 O2 Sat Art (Measured) 98(H) 90 - 95 % [facility] Blood 06/11/2022 3:31 AM CDT 06/11/2022 4:00 AM CDT Marcelina Lo APPLIANCE COUNSELOR LAB BLOOD ORDERABLES Final Re sult Performing Organization Address [facility] de Phone Number [facility] [place] [address] * Lactate, whole blood (06/11/2022 3:31 AM CDT) Pathologist [facility] Lactate, bld 1.1 0.7 - 2.0 mmol/L [facility] Blood 06/11/2022 3:31 AM CDT 06/11/2022 4:00 AM CDT us Marcelina Lo APPLIANCE COUNSELOR LAB BLOOD ORDERABLES Final Re sult Performing Organization Address [facility] de Phone Number [facility] [place] [address] * POCT glucose (06/11/2022 3:28 AM CDT) Glucose, POC 155 70 - 199 mg/dL [facility] Blood 06/11/2022 3:28 AM CDT 06/11/2022 3:28 AM CDT Catherine Adams MD LAB POCT ORDERABLES - DEVIC E Final Result Performing Organization Address [facility] Co de Phone Number [facility] [place] [address] * Blood culture Blood Antecubital, right (06/11/2022 [...] organism identification may be performed using the Microstimigene Gram-Positive Blood Culture Assay. This assay detects microbial DNA in positive blood culture broth via hybridization of target DNA to capture oligonucleotides on a microarray. This assay has been cleared by the [place] Food and Drug Administration and its performance characteristics have been verified by the [facility] Microbiology Laboratory. 5. ?For questions about this culture, contact the Microbiology Laboratory at [phone]. Interpretive data was last revised on 2020. Catherine Aadms MD LAB MICROBIOLOGY - GENERAL ORDERABLES Final Result [facility] [place] [address] * Blood culture Blood Antecubital, left (06/11/2022 [...] organism identification may be performed using the Microstimigene Gram-Positive Blood Culture Assay. This assay detects microbial DNA in positive blood culture broth via hybridization of target DNA to capture oligonucleotides on a microarray. This assay has been cleared by the [place] Food and Drug Administration and its performance characteristics have been verified by the [facility] Microbiology Laboratory. 5. ?For questions about this culture, contact the Microbiology Laboratory at [phone]. Interpretive data was last revised on 2020. us Catherine Adams MD LAB MICROBIOLOGY - GENERAL ORDERABLES Final Result [facility] [place] [address] * POCT glucose (06/11/2022 12:49 AM CDT) Glucose, POC 165 70 - 199 mg/dL [facility] Blood 06/11/2022 12:4 9 AM CDT 06/11/2022 12:49 AM CDT us Cahterine Adams MD LAB POCT ORDERABLES - DEVIC E Final Result Performing Organization Address [facility] de Phone Number [facility] [place] [address] * POCT glucose (06/10/2022 10:28 PM CDT) Glucose, POC 163 70 - 199 mg/dL [facility] Blood 06/10/2022 10:2 8 PM CDT 06/10/2022 10:28 PM CDT us Catherine Adams MD LAB POCT ORDERABLES - DEVIC E Final Result Performing Organization Address [facility] de Phone Number [facility] [place] [address] * (ABNORMAL) eGFR (06/10/2022 10:27 PM CDT) Pathologist [facility] eGFR 33(L) 90 - 130 mL/min/1. 73 m2 [facility] Comment: Interpretive Data Reference Interval Normal [...] Adams MD LAB BLOOD ORDERABLES Final Result [facility] [place] [address] * (ABNORMAL) Manual Differential (06/10/2022 10:27 PM CDT) Differential Manual [facility] Cells Counted 118 [facility] Neutrophil abs 13.0(H) 1.7 - 6.5 K/cumm [facility] Imm gran abs 0.6(H) 0.0 - 0.1 K/cumm [facility] Lymphocyte abs 1.3 0.8 - 3.3 K/cumm [facility] Monocyte abs 1.5(H) 0.2 - 0.8 K/cumm [facility] Eosinophil abs 0.7(H) 0.0 - 0.5 K/cumm [facility] Basophil abs 0.1 0.0 - 0.1 K/cumm [facility] Neutrophil pct 75.6 % [facility] Comment: Interpretive Data Percent cell count reference ranges are not reported, since discordance with absolute values may lead to misinterpretation of CBC data. Current Interpretive Data was last revised on 2017. Lymphocyte pct 7.6 % [facility] Comment: Interpretive Data Percent cell count reference ranges are not reported, since discordance with absolute values may lead to misinterpretation of CBC data. Current Interpretive Data was last revised on 2017. Monocyte pct 8.5 % [facility] Comment: Interpretive Data Percent cell count reference ranges are not reported, since discordance with absolute values may lead to misinterpretation of CBC data. Current Interpretive Data was last revised on 2017. Eosinophil pct 4.2 % [facility] Comment: Interpretive Data Percent cell count reference ranges are not reported, since discordance with absolute values may lead to misinterpretation of CBC data. Current Interpretive Data was last revised on 2017. Basophil pct 0.8 % [facility] Comment: Interpretive Data Percent cell count reference ranges are not reported, since discordance with absolute values may lead to misinterpretation of CBC data. Current Interpretive Data was last revised on 2017. Metamyelocyte pct 1.7 % [facility] Myelocyte pct 0.8 % [facility] Promyelocyte pct 0.8 % [facility] Blood 06/10/2022 10:2 7 PM CDT 06/10/2022 10:44 PM CDT Catherine Adams MD LAB BLOOD ORDERABLES Final Result [facility] [place] [address] * (ABNORMAL) Comprehensive metabolic panel (06/10/2022 10:27 PM CDT) Sodium 136 135 - 145 mmol/L [facility] Potassium, pl 4.9 3.3 - 4.9 mmol/L [facility] Chloride 99 97 - 110 mmol/L [facility] CO2 25 22 - 32 mmol/L [facility] Anion gap 12 2 - 15 mmol/L [facility] BUN 20 8 - 25 mg/dL [facility] Creatinine 2.33(H) 0.80 - 1.30 mg/dL [facility] Glucose 158 70 - 199 mg/dL [facility] Comment: Interpretive Data Fasting glucose >/= [...] 2017. Calcium 8.6 8.5 - 10.3 mg/dL [facility] Bilirubin, total 1.0 0.1 - 1.2 mg/dL [facility] Protein, pl 6.2(L) 6.5 - 8.5 g/dL [facility] Albumin 3.1(L) 3.5 - 5.0 g/dL [facility] Alk phos 216(H) 40 - 130 Units/L [facility] ALT 49 7 - 55 Units/L [facility] AST 114(H) 10 - 50 Units/L [facility] Blood 06/10/2022 10:2 7 PM CDT 06/10/2022 10:37 PM CDT Catherine Adams MD LAB BLOOD ORDERABLES Final Result Performing Organization Address City/[facility]/ZIP Co de Phone Number [facility] [place] [address] * Magnesium (06/10/2022 10:27 PM CDT) Magnesium 2.5 1.4 - 2.5 mg/dL [facility] Blood 06/10/2022 10:2 7 PM CDT 06/10/2022 10:37 PM CDT Catherine Adams MD LAB BLOOD ORDERABLES Final Result [facility] [place] [address] * Lactate, whole blood (06/10/2022 10:27 PM CDT) Lactate, bld 1.1 0.7 - 2.0 mmol/L [facility] Blood 06/10/2022 10:2 7 PM CDT 06/10/2022 10:36 PM CDT Marcelina Lo APPLIANCE COUNSELOR LAB BLOOD ORDERABLES Final Re sult Performing Organization Address City/[facility] Co de Phone Number [facility] [place] [address] * (ABNORMAL) Blood gas, arterial (06/10/2022 10:27 PM CDT) Pathologist [facility] pH, Art 7.39 7.35 - 7.45 [facility] PCO2, Arterial 37 35 - 45 mmHg [facility] PO2, Arterial 98 83 - 108 mmHg [facility] HCO3 Art (Calculated) 23 20 - 30 mmol/L [facility] BE, art -2 mmol/L [facility] Comment: Interpretive Data No Reference Range Established Current Interpretive Data was last revised on 2017 O2 Sat Art (Measured) 97(H) 90 - 95 % [facility] Blood 06/10/2022 10:2 7 PM CDT 06/10/2022 10:36 PM CDT Marcelina Lo APPLIANCE COUNSELOR LAB BLOOD ORDERABLES Final Re sult Performing Organization Address [facility] Co de Phone Number [facility] [place] [address] * Phosphorus (06/10/2022 10:27 PM CDT) Pathologist [facility] Phosphorus, pl 3.6 2.3 - 4.5 mg/dL [facility] Blood 06/10/2022 10:2 7 PM CDT 06/10/2022 10:37 PM CDT Marcelina Lo APPLIANCE COUNSELOR LAB BLOOD ORDERABLES Final Re sult Performing Organization Address City/[facility]/ZIP Co de Phone Number [facility] [place] [address] * (ABNORMAL) Beta-hydroxybutyrate (06/10/2022 10:27 PM CDT) [facility] Beta-Hydroxybut yrate 1.1(H) 0.0 - 0.5 mmol/L [facility] Blood 06/10/2022 10:2 7 PM CDT 06/10/2022 10:37 PM CDT Marcelina Lo APPLIANCE COUNSELOR LAB BLOOD ORDERABLES Edited R esult - Final Performing Organization Address [facility]/ZIP Co de Phone Number [facility] Department [place] [address] * Lipase (06/10/2022 10:27 PM CDT) [facility] Lipase 26 10 - 99 Units/L [facility] Blood 06/10/2022 10:2 7 PM CDT 06/10/2022 10:37 PM CDT Marcelina Lo APPLIANCE COUNSELOR LAB BLOOD ORDERABLES Final Re sult Performing Organization Address [facility] de Phone Number [facility] Department [place] [address] * (ABNORMAL) CBC with auto differential (06/10/2022 10:27 PM CDT) [facility] WBC 17.2(H) 3.8 - 9.9 K/cumm [facility] Hgb 9.0(L) 13.0 - 17.5 g/dL [facility] Hct 27.0(L) 38.9 - 50.3 % [facility] Plt 274 150 - 400 K/cumm [facility] MPV 10.7 9.1 - 12.3 fL [facility] RBC 2.88(L) 4.30 - 5.80 M/cumm [facility] MCV 93.8 81.3 - 96.4 fL [facility] MCH 31.3 27.1 - 33.3 pg [facility] MCHC 33.3 32.3 - 35.7 g/dL [facility] RDW CV 13.5 11.1 - 14.9 % [facility] RDW SD 46.1 35.7 - 48.1 fL [facility] NRBC abs 0.08(H) 0.00 - 0.01 K/cumm [facility] Blood 06/10/2022 10:2 7 PM CDT 06/10/2022 10:37 PM CDT us Marcelina Lo APPLIANCE COUNSELOR LAB BLOOD ORDERABLES Final Re sult Performing Organization Address City/[facility]/ZIP Co de Phone Number [facility] Department [place] [address] * POCT glucose (06/10/2022 5:13 PM CDT) Glucose, POC 106 70 - 199 mg/dL [facility] Blood 06/10/2022 5:13 PM CDT 06/10/2022 5:13 PM CDT us Catherine Adams MD LAB POCT ORDERABLES - DEVIC E Final Result Performing Organization Address City/[facility]/ZIP Co de Phone Number [facility] Department [place] [address] * (ABNORMAL) Triglycerides (06/10/2022 5:13 PM CDT) Triglycerides 401(H) <=149 mg/dL [facility] Comment: Interpretive Data Ages < [...] PM CDT 06/10/2022 5:39 PM CDT Narrative [facility] - 06/10/2022 6:07 PM CDT While on propofol infusion. us Catherine Adams MD LAB BLOOD ORDERABLES Final Result Performing Organization Address [facility] de Phone Number [facility] [place] [address] * (ABNORMAL) Blood gas, arterial (06/10/2022 2:24 PM CDT) pH, Art 7.38 7.35 - 7.45 [facility] PCO2, Arterial 39 35 - 45 mmHg [facility] PO2, Arterial 66(L) 83 - 108 mmHg [facility] HCO3 Art (Calculated) 24 20 - 30 mmol/L [facility] BE, art -2 mmol/L [facility] Comment: Interpretive Data No Reference Range Established Current Interpretive Data was last revised on 2017 O2 Sat Art (Measured) 91 90 - 95 % [facility] Blood 06/10/2022 2:24 PM CDT 06/10/2022 2:31 PM CDT us Marcelina Lo NP LAB BLOOD ORDERABLES Final Re sult Performing Organization Address [facility] Co de Phone Number [facility] [place] [address] * POCT glucose (06/10/2022 1:13 PM CDT) Glucose, POC 189 70 - 199 mg/dL [facility] Blood 06/10/2022 1:13 PM CDT 06/10/2022 1:13 PM CDT Catherine Adams MD LAB POCT ORDERABLES - DEVIC E Final Result Performing Organization Address [facility] Co de Phone Number [facility] Department [place] [address] * Lactate, whole blood (06/10/2022 1:12 PM CDT) Pathologist [facility] Lactate, bld 1.1 0.7 - 2.0 mmol/L [facility] Blood 06/10/2022 1:12 PM CDT 06/10/2022 1:25 PM CDT us Marcelina Lo APPLIANCE COUNSELOR LAB BLOOD ORDERABLES Final Re sult Performing Organization Address [facility] de Phone Number [facility] Department [place] [address] * (ABNORMAL) Blood gas, arterial (06/10/2022 1:12 PM CDT) Pathologist [facility] pH, Art 7.40 7.35 - 7.45 [facility] PCO2, Arterial 36 35 - 45 mmHg [facility] PO2, Arterial 67(L) 83 - 108 mmHg [facility] HCO3 Art (Calculated) 23 20 - 30 mmol/L [facility] BE, art -2 mmol/L [facility] Comment: Interpretive Data No Reference Range Established Current Interpretive Data was last revised on 2017 O2 Sat Art (Measured) 92 90 - 95 % [facility] Blood 06/10/2022 1:12 PM CDT 06/10/2022 1:25 PM CDT us Marcelina Lo APPLIANCE COUNSELOR LAB BLOOD ORDERABLES Final Re sult [facility] [place] [address] * REMOVE VAD - DIFFERENT SESSION (06/10/2022 [...] pressure. ??Pressors were weaned off in the laborer syrup machine but hypoxemia has been slow to resolve despite his peritoneal dialysis accelerated to hemodialysis. ??Impella is currently weaned to P2 and ready for removal. ?? Pre close system had been used with two 6 Czech pro style placed in orthogonal fashion prior [...] x2. 2. History of non ST elevation [place] with mild LV dysfunction status post recent [...] time, low range (06/10/2022 9:56 AM CDT) [facility] ACT 183(H) 123 - 168 sec [facility] Blood 06/10/2022 9:56 AM CDT 06/10/2022 9:56 AM CDT Catherine Adams MD LAB POCT ORDERABLES - DEVIC E Final Result Performing Organization Address City/[facility] Co de Phone Number [facility] Department [place] [address] * (ABNORMAL) POCT Activated clotting time, low range (06/10/2022 8:08 AM CDT) [facility] ACT 214(H) 123 - 168 sec [facility] Blood 06/10/2022 8:08 AM CDT 06/10/2022 8:08 AM CDT Catherine Adams MD LAB POCT ORDERABLES - DEVIC E Final Result Performing Organization Address City/[facility]/ZIP Co de Phone Number [facility] Department [place] [address] * POCT glucose (06/10/2022 7:54 AM CDT) Glucose, POC 138 70 - 199 mg/dL [facility] Blood 06/10/2022 7:54 AM CDT 06/10/2022 7:54 AM CDT us Catherine Adams MD LAB POCT ORDERABLES - DEVIC E Final Result [facility] [place] [address] * (ABNORMAL) eGFR (06/10/2022 7:52 AM CDT) [facility] eGFR 31(L) 90 - 130 mL/min/1. 73 m2 [facility] Comment: Interpretive Data Reference Interval Normal [...] Adams MD LAB BLOOD ORDERABLES Final Result [facility] [place] [address] * (ABNORMAL) Differential, auto (06/10/2022 7:52 AM CDT) Neutrophil abs 6.7(H) 1.7 - 6.5 K/cumm [facility] Imm gran abs 1.0(H) 0.0 - 0.1 K/cumm [facility] Lymphocyte abs 1.4 0.8 - 3.3 K/cumm [facility] Monocyte abs 0.9(H) 0.2 - 0.8 K/cumm [facility] Eosinophil abs 0.3 0.0 - 0.5 K/cumm [facility] Basophil abs 0.0 0.0 - 0.1 K/cumm [facility] Neutrophil pct 65.5 % [facility] Comment: Confirmed by smear review Interpretive Data Percent cell count reference ranges are not reported, since discordance with absolute values may lead to misinterpretation of CBC data. Current Interpretive Data was last revised on 2017. Imm gran pct 9.4 % [facility] Comment: Interpretive Data Percent cell count reference ranges are not reported, since discordance with absolute values may lead to misinterpretation of CBC data. Current Interpretive Data was last revised on 2017. Lymphocyte pct 13.4 % [facility] Comment: Interpretive Data Percent cell count reference ranges are not reported, since discordance with absolute values may lead to misinterpretation of CBC data. Current Interpretive Data was last revised on 2017. Monocyte pct 8.8 % [facility] Comment: Interpretive Data Percent cell count reference ranges are not reported, since discordance with absolute values may lead to misinterpretation of CBC data. Current Interpretive Data was last revised on 2017. Eosinophil pct 2.6 % [facility] Comment: Interpretive Data Percent cell count reference ranges are not reported, since discordance with absolute values may lead to misinterpretation of CBC data. Current Interpretive Data was last revised on 2017. Basophil pct 0.3 % [facility] Comment: Interpretive Data Percent cell count reference ranges are not reported, since discordance with absolute values may lead to misinterpretation of CBC data. Current Interpretive Data was last revised on 2017. Blood 06/10/2022 7:52 AM CDT 06/10/2022 8:07 AM CDT us Catherine Adams MD LAB BLOOD ORDERABLES Final Result Performing Organization Address City/[facility] Co de Phone Number [facility] [place] [address] * Lactate, whole blood (06/10/2022 7:52 AM CDT) Lactate, bld 1.2 0.7 - 2.0 mmol/L [facility] Blood 06/10/2022 7:52 AM CDT 06/10/2022 8:02 AM CDT us Marcelina Lo NP LAB BLOOD ORDERABLES Final Re sult Performing Organization Address [facility] Co de Phone Number [facility] [place] [address] * (ABNORMAL) Blood gas, arterial (06/10/2022 7:52 AM CDT) pH, Art 7.46(H) 7.35 - 7.45 [facility] PCO2, Arterial 34(L) 35 - 45 mmHg [facility] PO2, Arterial 99 83 - 108 mmHg [facility] HCO3 Art (Calculated) 25 20 - 30 mmol/L [facility] BE, art 1 mmol/L [facility] Comment: Interpretive Data No Reference Range Established Current Interpretive Data was last revised on 2017 O2 Sat Art (Measured) 98(H) 90 - 95 % [facility] Blood 06/10/2022 7:52 AM CDT 06/10/2022 8:02 AM CDT Marcelina Lo APPLIANCE COUNSELOR LAB BLOOD ORDERABLES Final Re sult Performing Organization Address City/[facility]/ZIP Co de Phone Number [facility] [place] [address] * Magnesium (06/10/2022 7:52 AM CDT) Pathologist [facility] Magnesium 2.4 1.4 - 2.5 mg/dL [facility] Blood 06/10/2022 7:52 AM CDT 06/10/2022 8:07 AM CDT Marcelina Lo APPLIANCE COUNSELOR LAB BLOOD ORDERABLES Final Re sult Performing Organization Address [facility] de Phone Number [facility] [place] [address] * (ABNORMAL) Comprehensive metabolic panel (06/10/2022 7:52 AM CDT) Pathologist [facility] Sodium 135 135 - 145 mmol/L [facility] Potassium, pl 4.3 3.3 - 4.9 mmol/L [facility] Chloride 100 97 - 110 mmol/L [facility] CO2 26 22 - 32 mmol/L [facility] Anion gap 9 2 - 15 mmol/L [facility] BUN 20 8 - 25 mg/dL [facility] Creatinine 2.44(H) 0.80 - 1.30 mg/dL [facility] Glucose 138 70 - 199 mg/dL [facility] Comment: Interpretive Data Fasting glucose >/= [...] 2017. Calcium 8.4(L) 8.5 - 10.3 mg/dL [facility] Bilirubin, total 0.8 0.1 - 1.2 mg/dL [facility] Protein, pl 6.2(L) 6.5 - 8.5 g/dL [facility] Albumin 3.0(L) 3.5 - 5.0 g/dL [facility] Alk phos 169(H) 40 - 130 Units/L [facility] ALT 45 7 - 55 Units/L [facility] AST 117(H) 10 - 50 Units/L [facility] Blood 06/10/2022 7:52 AM CDT 06/10/2022 8:07 AM CDT us Marcelina Lo APPLIANCE COUNSELOR LAB BLOOD ORDERABLES Final Re sult [facility] [place] [address] * (ABNORMAL) CBC with auto differential (06/10/2022 7:52 AM CDT) WBC 10.2(H) 3.8 - 9.9 K/cumm [facility] Hgb 8.3(L) 13.0 - 17.5 g/dL [facility] Hct 25.1(L) 38.9 - 50.3 % [facility] Plt 201 150 - 400 K/cumm [facility] MPV 10.9 9.1 - 12.3 fL [facility] RBC 2.70(L) 4.30 - 5.80 M/cumm [facility] MCV 93.0 81.3 - 96.4 fL [facility] MCH 30.7 27.1 - 33.3 pg [facility] MCHC 33.1 32.3 - 35.7 g/dL [facility] RDW CV 13.3 11.1 - 14.9 % [facility] RDW SD 45.1 35.7 - 48.1 fL [facility] NRBC abs 0.02(H) 0.00 - 0.01 K/cumm [facility] Blood 06/10/2022 7:52 AM CDT 06/10/2022 8:07 AM CDT Marcelina Lo APPLIANCE COUNSELOR LAB BLOOD ORDERABLES Final Re sult Performing Organization Address [facility] de Phone Number [facility] [place] [address] * Oxyhemoglobin, central venous (06/10/2022 5:36 AM CDT) Oxyhemoglobin, CV 70.2 % [facility] Comment: Interpretive Data No reference range established. Current interpretive data was last revised 2019. Blood 06/10/2022 5:36 AM CDT 06/10/2022 5:58 AM CDT Lavern Morrison MD LAB BLOOD ORDERABLES F inal Result Performing Organization Address [facility] de Phone Number [facility] [place] [address] * Lactate, whole blood (06/10/2022 5:36 AM CDT) Lactate, bld 1.4 0.7 - 2.0 mmol/L [facility] Blood 06/10/2022 5:36 AM CDT 06/10/2022 5:58 AM CDT Marcelina Lo APPLIANCE COUNSELOR LAB BLOOD ORDERABLES Final Re sult Performing Organization Address [facility] de Phone Number [facility] [place] [address] * XR Chest 1 View (06/10/2022 5:32 AM CDT) Anatomical Region Laterality Modality Body, Chest N/A Computed Radiogr aphy 06/10/2022 11:3 8 AM CDT Impressions 06/10/2022 11:42 AM CDT Comparison is made with prior radiograph dated 06/09/2022 7:57 AM. ??Left internal jugular central venous catheter terminates in the proximal superior vena cava. Feeding tube courses below diaphragm with tip not seen. Inferior approach [place]-Liv catheter has tip projecting over the main [...] diaphragm with tip not seen. Inferior approach [place]-Liv catheter has tip projecting over the main [...] Blood gas, arterial (06/10/2022 3:45 AM CDT) [facility] pH, Art 7.45 7.35 - 7.45 [facility] PCO2, Arterial 36 35 - 45 mmHg [facility] PO2, Arterial 92 83 - 108 mmHg [facility] HCO3 Art (Calculated) 26 20 - 30 mmol/L [facility] BE, art 1 mmol/L [facility] Comment: Interpretive Data No Reference Range Established Current Interpretive Data was last revised on 2017 O2 Sat Art (Measured) 97(H) 90 - 95 % [facility] Blood 06/10/2022 3:45 AM CDT 06/10/2022 3:52 AM CDT us Marcelina Lo NP LAB BLOOD ORDERABLES Final Re sult Performing Organization Address [facility]/ZIP Co de Phone Number [facility] Department [place] [address] * POCT glucose (06/10/2022 3:42 AM CDT) Glucose, POC 150 70 - 199 mg/dL [facility] Blood 06/10/2022 3:42 AM CDT 06/10/2022 3:42 AM CDT us Catherine Adams MD LAB POCT ORDERABLES - DEVIC E Final Result Performing Organization Address City/[facility]/ZIP Co de Phone Number [facility] Department [place] [address] * Lactate, whole blood (06/10/2022 12:26 AM CDT) Lactate, bld 1.4 0.7 - 2.0 mmol/L [facility] Blood 06/10/2022 12:2 6 AM CDT 06/10/2022 12:33 AM CDT Catherine Adams MD LAB BLOOD ORDERABLES Final Result Performing Organization Address City/[facility] Co de Phone Number [facility] Department [place] [address] * (ABNORMAL) Blood gas, arterial (06/10/2022 12:26 [...] Art (Measured) 96(H) 90 - 95 % [facility] Blood 06/10/2022 12:2 6 AM CDT 06/10/2022 12:33 AM CDT us Marcelina Lo NP LAB BLOOD ORDERABLES Final Re sult [facility] [place] [address] * POCT glucose (06/10/2022 12:21 AM CDT) Glucose, POC 157 70 - 199 mg/dL [facility] Blood 06/10/2022 12:2 1 AM CDT 06/10/2022 12:21 AM CDT us Catherine Adams MD LAB POCT ORDERABLES - DEVIC E Final Result [facility] [place] [address] * (ABNORMAL) Blood gas, arterial (06/09/2022 10:28 PM CDT) pH, Art 7.43 7.35 - 7.45 [facility] PCO2, Arterial 38 35 - 45 mmHg [facility] PO2, Arterial 93 83 - 108 mmHg [facility] HCO3 Art (Calculated) 26 20 - 30 mmol/L [facility] BE, art 1 mmol/L [facility] Comment: Interpretive Data No Reference Range Established Current Interpretive Data was last revised on 2017 O2 Sat Art (Measured) 97(H) 90 - 95 % [facility] Blood 06/09/2022 10:2 8 PM CDT 06/09/2022 10:38 PM CDT Catherine Adams MD LAB BLOOD ORDERABLES Final Result Performing Organization Address [facility] de Phone Number [facility] Department [place] [address] * POCT glucose (06/09/2022 8:40 PM CDT) Glucose, POC 182 70 - 199 mg/dL [facility] Blood 06/09/2022 8:40 PM CDT 06/09/2022 8:40 PM CDT Catherine Adams MD LAB POCT ORDERABLES - DEVIC E Final Result Performing Organization Address [facility] de Phone Number [facility] Department [place] [address] * (ABNORMAL) eGFR (06/09/2022 8:33 PM CDT) eGFR 26(L) 90 - 130 mL/min/1. 73 m2 [facility] Comment: Interpretive Data Reference Interval Normal [...] BLOOD ORDERABLES Final Result Performing Organization Address City/State/[facility] Co de Phone Number [facility] [place] [address] * (ABNORMAL) Differential, auto (06/09/2022 8:33 PM CDT) Neutrophil abs 5.8 1.7 - 6.5 K/cumm [facility] Imm gran abs 0.7(H) 0.0 - 0.1 K/cumm [facility] Lymphocyte abs 1.2 0.8 - 3.3 K/cumm [facility] Monocyte abs 1.0(H) 0.2 - 0.8 K/cumm [facility] Eosinophil abs 0.3 0.0 - 0.5 K/cumm [facility] Basophil abs 0.0 0.0 - 0.1 K/cumm [facility] Neutrophil pct 64.3 % [facility] Comment: Interpretive Data Percent cell count reference ranges are not reported, since discordance with absolute values may lead to misinterpretation of CBC data. Current Interpretive Data was last revised on 2017. Imm gran pct 7.7 % [facility] Comment: Interpretive Data Percent cell count reference ranges are not reported, since discordance with absolute values may lead to misinterpretation of CBC data. Current Interpretive Data was last revised on 2017. Lymphocyte pct 13.4 % [facility] Comment: Interpretive Data Percent cell count reference ranges are not reported, since discordance with absolute values may lead to misinterpretation of CBC data. Current Interpretive Data was last revised on 2017. Monocyte pct 11.5 % [facility] Comment: Interpretive Data Percent cell count reference ranges are not reported, since discordance with absolute values may lead to misinterpretation of CBC data. Current Interpretive Data was last revised on 2017. Eosinophil pct 2.8 % [facility] Comment: Interpretive Data Percent cell count reference ranges are not reported, since discordance with absolute values may lead to misinterpretation of CBC data. Current Interpretive Data was last revised on 2017. Basophil pct 0.3 % [facility] Comment: Interpretive Data Percent cell count reference ranges are not reported, since discordance with absolute values may lead to misinterpretation of CBC data. Current Interpretive Data was last revised on 2017. Blood 06/09/2022 8:33 PM CDT 06/09/2022 9:07 PM CDT Catherine Adams MD LAB BLOOD ORDERABLES Final Result [facility] [place] [address] * (ABNORMAL) Blood gas, arterial (06/09/2022 8:33 PM CDT) pH, Art 7.41 7.35 - 7.45 [facility] PCO2, Arterial 39 35 - 45 mmHg [facility] PO2, Arterial 92 83 - 108 mmHg [facility] HCO3 Art (Calculated) 25 20 - 30 mmol/L [facility] BE, art 0 mmol/L [facility] Comment: Interpretive Data No Reference Range Established Current Interpretive Data was last revised on 2017 O2 Sat Art (Measured) 96(H) 90 - 95 % [facility] Blood 06/09/2022 8:33 PM CDT 06/09/2022 8:58 PM CDT Marcelina Lo APPLIANCE COUNSELOR LAB BLOOD ORDERABLES Final Re sult Performing Organization Address [facility] Co de Phone Number [facility] [place] [address] * (ABNORMAL) aPTT (06/09/2022 8:33 PM CDT) aPTT 92(H) 27 - 37 sec [facility] Comment: Interpretive Data Therapeutic heparin range: 60.0 - 94.0 seconds. Based on correlation with therapeutic heparin activity range of 0.3-0.7 Units/mL. Current interpretive data was last revised on 2020. Blood 06/09/2022 8:33 PM CDT 06/09/2022 9:01 PM CDT Narrative [facility] - 06/09/2022 9:28 PM CDT Draw [...] Ann Marie l Result Performing Organization Address [facility] Co de Phone Number [facility] Department [place] [address] * Phosphorus (06/09/2022 8:33 PM CDT) Phosphorus, pl 3.2 2.3 - 4.5 mg/dL [facility] Blood 06/09/2022 8:33 PM CDT 06/09/2022 9:07 PM CDT Marcelina Lo APPLIANCE COUNSELOR LAB BLOOD ORDERABLES Final Re sult Performing Organization Address [facility] Co de Phone Number [facility] Department [place] [address] * Beta-hydroxybutyrate (06/09/2022 8:33 PM CDT) Beta-Hydroxybut yrate 0.3 0.0 - 0.5 mmol/L [facility] Blood 06/09/2022 8:33 PM CDT 06/09/2022 9:07 PM CDT us Marcelina Lo APPLIANCE COUNSELOR LAB BLOOD ORDERABLES [place] [address] * Haptoglobin (06/09/2022 8:33 PM CDT) Haptoglobin 153.0 30.0 - 200.0 mg/dL [facility] Blood 06/09/2022 8:33 PM CDT 06/09/2022 9:07 PM CDT Catherine Adams MD LAB BLOOD ORDERABLES Final Result [facility] Department [place] [address] * Lipase (06/09/2022 8:33 PM CDT) Lipase 21 10 - 99 Units/L [facility] Blood 06/09/2022 8:33 PM CDT 06/09/2022 9:07 PM CDT us Marcelina oL APPLIANCE COUNSELOR LAB BLOOD ORDERABLES Final Re sult [facility] [place] [address] * (ABNORMAL) Lactate dehydrogenase (LD) (06/09/2022 8:33 PM CDT) Pathologist [facility] Lactate dehydrogenase (LDH) 528(H) 100 - 250 Units/L [facility] Blood 06/09/2022 8:33 PM CDT 06/09/2022 9:07 PM CDT Catherine Adams MD LAB BLOOD ORDERABLES Final Result [facility] Department [place] [address] * Magnesium (06/09/2022 8:33 PM CDT) [facility] Magnesium 2.4 1.4 - 2.5 mg/dL [facility] Blood 06/09/2022 8:33 PM CDT 06/09/2022 9:07 PM CDT Marcelina Lo NP LAB BLOOD ORDERABLES Final Re sult Performing Organization Address City/[facility]/ZIP Co de Phone Number [facility] Department [place] [address] * (ABNORMAL) Comprehensive metabolic panel (06/09/2022 8:33 PM CDT) [facility] Sodium 134(L) 135 - 145 mmol/L [facility] Potassium, pl 4.4 3.3 - 4.9 mmol/L [facility] Chloride 99 97 - 110 mmol/L [facility] CO2 25 22 - 32 mmol/L [facility] Anion gap 10 2 - 15 mmol/L [facility] BUN 24 8 - 25 mg/dL [facility] Creatinine 2.82(H) 0.80 - 1.30 mg/dL [facility] Glucose 173 70 - 199 mg/dL [facility] Comment: Interpretive Data Fasting glucose >/= [...] 2017. Calcium 8.3(L) 8.5 - 10.3 mg/dL [facility] Bilirubin, total 0.8 0.1 - 1.2 mg/dL [facility] Protein, pl 6.1(L) 6.5 - 8.5 g/[facility] Albumin 2.8(L) 3.5 - 5.0 g/dL [facility] Alk phos 168(H) 40 - 130 Units/L [facility] ALT 45 7 - 55 Units/L [facility] AST 129(H) 10 - 50 Units/L [facility] Blood 06/09/2022 8:33 PM CDT 06/09/2022 9:07 PM CDT us Marcelina Lo APPLIANCE COUNSELOR LAB BLOOD ORDERABLES Final Re sult [facility] [place] [address] * (ABNORMAL) CBC with auto differential (06/09/2022 8:33 PM CDT) WBC 9.1 3.8 - 9.9 K/cumm [facility] Hgb 8.2(L) 13.0 - 17.5 g/dL [facility] Hct 24.8(L) 38.9 - 50.3 % [facility] Plt 208 150 - 400 K/cumm [facility] MPV 11.0 9.1 - 12.3 fL [facility] RBC 2.66(L) 4.30 - 5.80 M/cumm [facility] MCV 93.2 81.3 - 96.4 fL [facility] MCH 30.8 27.1 - 33.3 pg [facility] MCHC 33.1 32.3 - 35.7 g/dL [facility] RDW CV 13.2 11.1 - 14.9 % [facility] RDW SD 45.5 35.7 - 48.1 fL [facility] NRBC abs 0.00 0.00 - 0.01 K/cumm [facility] Blood 06/09/2022 8:33 PM CDT 06/09/2022 9:07 PM CDT Marcelina Lo APPLIANCE COUNSELOR LAB BLOOD ORDERABLES Final Re sult Performing Organization Address [facility] Co de Phone Number [facility] [place] [address] * Oxyhemoglobin, pulmonary artery (06/09/2022 3:52 PM CDT) Oxyhemoglobin, PA 66.5 % [facility] Comment: Interpretive Data No reference range established. Current interpretive data was last revised 2019. Blood 06/09/2022 3:52 PM CDT 06/09/2022 4:01 PM CDT Marcelina Lo APPLIANCE COUNSELOR LAB BLOOD ORDERABLES Final Re sult Performing Organization Address [facility] Co de Phone Number [facility] [place] [address] * Lactate, whole blood (06/09/2022 3:52 PM CDT) Lactate, bld 1.4 0.7 - 2.0 mmol/L [facility] Blood 06/09/2022 3:52 PM CDT 06/09/2022 4:01 PM CDT Marcelina Lo APPLIANCE COUNSELOR LAB BLOOD ORDERABLES Final Re sult Performing Organization Address [facility] Co de Phone Number [facility] [place] [address] * (ABNORMAL) Hemoglobin total, pulmonary artery (06/09/2022 3:52 PM CDT) Hemoglobin total, PA 8.9(L) 13.0 - 17.5 g/dL [facility] Blood 06/09/2022 3:52 PM CDT 06/09/2022 4:01 PM CDT Marcelina Lo APPLIANCE COUNSELOR LAB BLOOD ORDERABLES Final Re sult Performing Organization Address [facility] de Phone Number [facility] Department [place] [address] * (ABNORMAL) Blood gas, arterial (06/09/2022 3:52 PM CDT) Pathologist [facility] pH, Art 7.38 7.35 - 7.45 [facility] PCO2, Arterial 45 35 - 45 mmHg [facility] PO2, Arterial 80(L) 83 - 108 mmHg [facility] HCO3 Art (Calculated) 27 20 - 30 mmol/L [facility] BE, art 1 mmol/L [facility] Comment: Interpretive Data No Reference Range Established Current Interpretive Data was last revised on 2017 O2 Sat Art (Measured) 94 90 - 95 % [facility] Blood 06/09/2022 3:52 PM CDT 06/09/2022 4:01 PM CDT Result [facility] Catherine Adams MD LAB BLOOD ORDERABLES Final Result Performing Organization Address [facility] Co de Phone Number [facility] Department [place] [address] * POCT glucose (06/09/2022 3:50 PM CDT) Glucose, POC 136 70 - 199 mg/dL [facility] Blood 06/09/2022 3:50 PM CDT 06/09/2022 3:50 PM CDT Result [facility] Catherine Adams MD LAB POCT ORDERABLES - DEVIC E Final Result Performing Organization Address [facility] Co de Phone Number [facility] [place] [address] * Lactate, whole blood (06/09/2022 11:59 AM CDT) Lactate, bld 1.3 0.7 - 2.0 mmol/L [facility] Blood 06/09/2022 11:5 9 AM CDT 06/09/2022 12:10 PM CDT Result [facility] Marcelina Lo APPLIANCE COUNSELOR LAB BLOOD ORDERABLES Final Re sult Performing Organization Address [facility] Co de Phone Number [facility] [place] [address] * (ABNORMAL) Hemoglobin total, pulmonary artery (06/09/2022 11:59 AM CDT) Hemoglobin total, PA 10.2(L) 13.0 - 17.5 g/dL [facility] Blood 06/09/2022 11:5 9 AM CDT 06/09/2022 12:10 PM CDT Result [facility] Marcelina Lo APPLIANCE COUNSELOR LAB BLOOD ORDERABLES Final Re sult Performing Organization Address [facility] Co de Phone Number [facility] [place] [address] * Oxyhemoglobin, pulmonary artery (06/09/2022 11:59 AM CDT) Oxyhemoglobin, PA 65.2 % [facility] Comment: Interpretive Data No reference range established. Current interpretive data was last revised 2019. Blood 06/09/2022 11:5 9 AM CDT 06/09/2022 12:10 PM CDT Marcelina Lo NP LAB BLOOD ORDERABLES Final Re sult Performing Organization Address [facility] Co de Phone Number [facility] [place] [address] * (ABNORMAL) aPTT (06/09/2022 11:59 AM CDT) aPTT 79(H) 27 - 37 sec [facility] Comment: Interpretive Data Therapeutic heparin range: 60.0 - 94.0 seconds. Based on correlation with therapeutic heparin activity range of 0.3-0.7 Units/mL. Current interpretive data was last revised on 2020. Blood 06/09/2022 11:5 9 AM CDT 06/09/2022 12:14 PM CDT Narrative [facility] - 06/09/2022 12:40 PM CDT Draw [...] Ann Marie l Result Performing Organization Address [facility] Co de Phone Number [facility] [place] [address] * POCT glucose (06/09/2022 11:58 AM CDT) Glucose, POC 171 70 - 199 mg/dL [facility] Blood 06/09/2022 11:5 8 AM CDT 06/09/2022 11:58 AM CDT Catherine Adams MD LAB POCT ORDERABLES - DEVIC E Final Result Performing Organization Address [facility] Co de Phone Number [facility] [place] [address] * XR Chest 1 View (06/09/2022 8:57 [...] diaphragm with tip not seen. Inferior approach [place]-Liv catheter has been retracted with the tip projecting over the main pulmonary artery. An Impella device is in place, unchanged. There is mild cardiomegaly, unchanged. There is moderate asymmetric left lung and right upper lobe pulmonary edema. Likely small left pleural effusion although the left costophrenic angle is partially off the [id number]. No right pleural effusion or pneumothorax. Second exam ??06/09/2022 7:57 AM The Stockdale-Liv catheter has been slightly advanced with tip [...] diaphragm with tip not seen. Inferior approach [place]-Liv catheter has been retracted with the tip projecting over the main pulmonary artery. An Impella device is in place, unchanged. There is mild cardiomegaly, unchanged. There is moderate asymmetric left lung and right upper lobe pulmonary edema. Likely small left pleural effusion although the left costophrenic angle is partially off the [id number]. No right pleural effusion or pneumothorax. Second exam 06/09/2022 7:57 AM The [place]dale-Liv catheter has been slightly advanced with tip [...] - 130 mL/min/1. 73 m2 [facility] Comment: Interpretive Data Reference Interval Normal ?>/= [...] Adams MD LAB BLOOD ORDERABLES Final Result [facility] [place] [address] * (ABNORMAL) Differential, auto (06/09/2022 7:57 AM CDT) Neutrophil abs 5.8 1.7 - 6.5 K/cumm [facility] Imm gran abs 0.5(H) 0.0 - 0.1 K/cumm [facility] Lymphocyte abs 1.2 0.8 - 3.3 K/cumm [facility] Monocyte abs 1.0(H) 0.2 - 0.8 K/cumm [facility] Eosinophil abs 0.2 0.0 - 0.5 K/cumm [facility] Basophil abs 0.0 0.0 - 0.1 K/cumm [facility] Neutrophil pct 67.0 % [facility] Comment: Interpretive Data Percent cell count reference ranges are not reported, since discordance with absolute values may lead to misinterpretation of CBC data. Current Interpretive Data was last revised on 2017. Imm gran pct 5.6 % [facility] Comment: Interpretive Data Percent cell count reference ranges are not reported, since discordance with absolute values may lead to misinterpretation of CBC data. Current Interpretive Data was last revised on 2017. Lymphocyte pct 13.6 % [facility] Comment: Interpretive Data Percent cell count reference ranges are not reported, since discordance with absolute values may lead to misinterpretation of CBC data. Current Interpretive Data was last revised on 2017. Monocyte pct 11.4 % [facility] Comment: Interpretive Data Percent cell count reference ranges are not reported, since discordance with absolute values may lead to misinterpretation of CBC data. Current Interpretive Data was last revised on 2017. Eosinophil pct 2.2 % [facility] Comment: Interpretive Data Percent cell count reference ranges are not reported, since discordance with absolute values may lead to misinterpretation of CBC data. Current Interpretive Data was last revised on 2017. Basophil pct 0.2 % [facility] Comment: Interpretive Data Percent cell count reference ranges are not reported, since discordance with absolute values may lead to misinterpretation of CBC data. Current Interpretive Data was last revised on 2017. Blood 06/09/2022 7:57 AM CDT 06/09/2022 8:19 AM CDT Catherine Adams MD LAB BLOOD ORDERABLES Final Result Performing Organization Address City/[facility]/ZIP Co de Phone Number [facility] [place] [address] * Magnesium (06/09/2022 7:57 AM CDT) [facility] Magnesium 2.3 1.4 - 2.5 mg/dL [facility] Blood 06/09/2022 7:57 AM CDT 06/09/2022 8:19 AM CDT Marcelina Lo NP LAB BLOOD ORDERABLES Final Re sult Performing Organization Address [facility]/ZIP Co de Phone Number [facility] [place] [address] * (ABNORMAL) Comprehensive metabolic panel (06/09/2022 7:57 AM CDT) Sodium 134(L) 135 - 145 mmol/L [facility] Potassium, pl 4.5 3.3 - 4.9 mmol/L [facility] Chloride 99 97 - 110 mmol/L [facility] CO2 28 22 - 32 mmol/L [facility] Anion gap 7 2 - 15 mmol/L [facility] BUN 32(H) 8 - 25 mg/dL [facility] Creatinine 3.50(H) 0.80 - 1.30 mg/dL [facility] Glucose 171 70 - 199 mg/dL [facility] Comment: Interpretive Data Fasting glucose >/= [...] 2017. Calcium 8.4(L) 8.5 - 10.3 mg/dL [facility] Bilirubin, total 0.6 0.1 - 1.2 mg/dL [facility] Protein, pl 5.8(L) 6.5 - 8.5 g/dL [facility] Albumin 2.8(L) 3.5 - 5.0 g/dL [facility] Alk phos 165(H) 40 - 130 Units/L [facility] ALT 43 7 - 55 Units/L [facility] AST 133(H) 10 - 50 Units/L [facility] Blood 06/09/2022 7:57 AM CDT 06/09/2022 8:19 AM CDT Marcelina Lo APPLIANCE COUNSELOR LAB BLOOD ORDERABLES Final Re sult [facility] [place] [address] * Potassium, whole blood (06/09/2022 7:57 AM CDT) Potassium, bld 4.2 3.3 - 4.9 mmol/L [facility] Blood 06/09/2022 7:57 AM CDT 06/09/2022 8:14 AM CDT Marcelina Lo APPLIANCE COUNSELOR LAB BLOOD ORDERABLES Final Re sult [facility] [place] [address] * (ABNORMAL) Blood gas, arterial (06/09/2022 7:57 AM CDT) [facility] pH, Art 7.43 7.35 - 7.45 [facility] PCO2, Arterial 39 35 - 45 mmHg [facility] PO2, Arterial 107 83 - 108 mmHg [facility] HCO3 Art (Calculated) 27 20 - 30 mmol/L [facility] BE, art 2 mmol/L [facility] Comment: Interpretive Data No Reference Range Established Current Interpretive Data was last revised on 2017 O2 Sat Art (Measured) 97(H) 90 - 95 % [facility] Blood 06/09/2022 7:57 AM CDT 06/09/2022 8:14 AM CDT Marcelina Lo APPLIANCE COUNSELOR LAB BLOOD ORDERABLES Final Re sult [facility] [place] [address] * Lactate, whole blood (06/09/2022 7:57 AM CDT) [facility] Lactate, bld 1.1 0.7 - 2.0 mmol/L [facility] Blood 06/09/2022 7:57 AM CDT 06/09/2022 8:14 AM CDT Marcelina Lo APPLIANCE COUNSELOR LAB BLOOD ORDERABLES Final Re sult [facility] [place] [address] * Type and screen (06/09/2022 7:57 AM CDT) [facility] ABO Rh A Positive [facility] Maribel, indirect Negative [facility] Blood 06/09/2022 7:57 AM CDT 06/09/2022 8:20 AM CDT Narrative [facility] - 06/09/2022 9:11 AM CDT Has the patient had Daratumumab or Isatuximab in the past 6 months?->Unknown Catherine Adams MD LAB BLOOD BANK TEST ORDERAB LES Final Result Performing Organization Address [facility] [place] [address] * (ABNORMAL) Hemoglobin total, pulmonary artery (06/09/2022 7:57 AM CDT) Hemoglobin total, PA 8.7(L) 13.0 - 17.5 g/dL [facility] Blood 06/09/2022 7:57 AM CDT 06/09/2022 8:43 AM CDT Marcelina Lo APPLIANCE COUNSELOR LAB BLOOD ORDERABLES Final Re sult Performing Organization Address [facility] [place] [address] * Oxyhemoglobin, pulmonary artery (06/09/2022 7:57 AM CDT) Oxyhemoglobin, PA 55.8 % [facility] Comment: Interpretive Data No reference range established. Current interpretive data was last revised 2019. Blood 06/09/2022 7:57 AM CDT 06/09/2022 8:43 AM CDT Marcelina Lo APPLIANCE COUNSELOR LAB BLOOD ORDERABLES Final Re sult Performing Organization Address [facility] [place] [address] * (ABNORMAL) CBC with auto differential (06/09/2022 7:57 AM CDT) WBC 8.6 3.8 - 9.9 K/cumm [facility] Hgb 8.1(L) 13.0 - 17.5 g/dL [facility] Hct 23.5(L) 38.9 - 50.3 % [facility] Plt 179 150 - 400 K/cumm [facility] MPV 11.1 9.1 - 12.3 fL [facility] RBC 2.61(L) 4.30 - 5.80 M/cumm [facility] MCV 90.0 81.3 - 96.4 fL [facility] MCH 31.0 27.1 - 33.3 pg [facility] MCHC 34.5 32.3 - 35.7 g/dL [facility] RDW CV 13.4 11.1 - 14.9 % [facility] RDW SD 44.2 35.7 - 48.1 fL [facility] NRBC abs 0.00 0.00 - 0.01 K/cumm [facility] Blood 06/09/2022 7:57 AM CDT 06/09/2022 8:19 AM CDT us Marcelina Lo NP LAB BLOOD ORDERABLES Final Re sult [facility] Department [place] [address] * POCT glucose (06/09/2022 7:55 AM CDT) [facility] Glucose, POC 155 70 - 199 mg/dL [facility] Blood 06/09/2022 7:55 AM CDT 06/09/2022 7:55 AM CDT us Catherine Adams MD LAB POCT ORDERABLES - DEVIC E Final Result Performing Organization Address City/[facility]/ZIP Co de Phone Number [facility] [place] [address] * (ABNORMAL) aPTT (06/09/2022 5:24 AM CDT) aPTT 66(H) 27 - 37 sec [facility] Comment: Interpretive Data Therapeutic heparin range: 60.0 - 94.0 seconds. Based on correlation with therapeutic heparin activity range of 0.3-0.7 Units/mL. Current interpretive data was last revised on 2020. Blood 06/09/2022 5:24 AM CDT 06/09/2022 5:53 AM CDT Narrative [facility] - 06/09/2022 6:02 AM CDT Draw [...] Ann Marie l Result Performing Organization Address [facility] de Phone Number [facility] [place] [address] * (ABNORMAL) Blood gas, arterial (06/09/2022 5:24 AM CDT) Pathologist [facility] pH, Art 7.44 7.35 - 7.45 [facility] PCO2, Arterial 38 35 - 45 mmHg [facility] PO2, Arterial 71(L) 83 - 108 mmHg [facility] HCO3 Art (Calculated) 26 20 - 30 mmol/L [facility] BE, art 2 mmol/L [facility] Comment: Interpretive Data No Reference Range Established Current Interpretive Data was last revised on 2017 O2 Sat Art (Measured) 94 90 - 95 % [facility] Blood 06/09/2022 5:24 AM CDT 06/09/2022 5:37 AM CDT us Marcelina Lo NP LAB BLOOD ORDERABLES Final Re sult Performing Organization Address [facility]/ZIP Co de Phone Number [facility] [email or web address] [address] * XR Chest 1 View (06/09/2022 4:30 [...] diaphragm with tip not seen. Inferior approach [place]-Liv catheter has been retracted with the tip projecting over the main pulmonary artery. An Impella device is in place, unchanged. There is mild cardiomegaly, unchanged. There is moderate asymmetric left lung and right upper lobe pulmonary edema. Likely small left pleural effusion although the left costophrenic angle is partially off the [id number]. No right pleural effusion or pneumothorax. Second exam ??06/09/2022 7:57 AM The [place]-Liv catheter has been slightly advanced with tip [...] diaphragm with tip not seen. Inferior approach [place]-Liv catheter has been retracted with the tip projecting over the main pulmonary artery. An Impella device is in place, unchanged. There is mild cardiomegaly, unchanged. There is moderate asymmetric left lung and right upper lobe pulmonary edema. Likely small left pleural effusion although the left costophrenic angle is partially off the [id number]. No right pleural effusion or pneumothorax. Second exam 06/09/2022 7:57 AM The [place]-Liv catheter has been slightly advanced with tip [...] WBC, ur 0-5 0 - 5 /HPF [facility] RBC, ur 6-10(A) 0 - 2 /HPF [facility] Hyaline casts, ur 1-5 0 - 10 /LPF [facility] Granular casts, ur 1-5(A) 0 - 0 /LPF [facility] Culture Reflex Comment Reflex conditions for urine culture (WBC >10) not met. [facility] Urine 06/09/2022 4:08 AM CDT 06/09/2022 4:16 AM CDT Catherine Adams MD LAB URINE ORDERABLES Final Result [facility] Department of Laboratories [place], [place] [id number] * (ABNORMAL) Urinalysis reflex to microscopic and culture Urine (06/09/2022 4:08 AM CDT) Color, ur Yellow Yellow [facility] Clarity, ur Clear Clear [facility] Specific gravity, ur 1.018 1.003 - 1.030 [facility] pH, urine 5.5 [facility] Protein, ur ql 1+(A) Negative [facility] Glucose, ur ql 4+(A) Negative [facility] Ketones, ur Negative Negative [facility] Bilirubin, ur Negative Negative [facility] Blood, ur 2+(A) Negative [facility] Urobilinogen, ur <2.0 <2.0 mg/dL [facility] Nitrite, ur Negative Negative [facility] Leukocyte esterase, ur Negative Negative [facility] UA reflex comment Reflex to microscopic UA will be performed. [facility] Urine 06/09/2022 4:08 AM CDT 06/09/2022 [...] for uric acid stone formation. Source: [employer]. Last revised 08-31-2017 Catherine Adams MD LAB MICROBIOLOGY - GENERAL ORDERABLES Final Result Performing Organization Address City/[facility]/ZIP Co de Phone Number [facility] [place] [address] * POCT glucose (06/09/2022 4:06 AM CDT) Glucose, POC 147 70 - 199 mg/dL [facility] Blood 06/09/2022 4:06 AM CDT 06/09/2022 4:06 AM CDT Catherine Adams MD LAB POCT ORDERABLES - DEVIC E Final Result Performing Organization Address [facility] Co de Phone Number [facility] [place] [address] * (ABNORMAL) Hemoglobin and hematocrit (06/08/2022 11:27 PM CDT) Pathologist [facility] Hgb 7.5(L) 13.0 - 17.5 g/dL [facility] Hct 22.0(L) 38.9 - 50.3 % [facility] Blood 06/08/2022 11:2 7 PM CDT 06/08/2022 11:40 PM CDT Meme Castro MD LAB BLOOD ORDERABLES Final Result Performing Organization Address [facility] Co de Phone Number [facility] [place] [address] * (ABNORMAL) Hemoglobin total, pulmonary artery (06/08/2022 11:27 PM CDT) [facility] Hemoglobin total, PA 8.1(L) 13.0 - 17.5 g/dL [facility] Blood 06/08/2022 11:2 7 PM CDT 06/08/2022 11:36 PM CDT Marcelina Lo APPLIANCE COUNSELOR LAB BLOOD ORDERABLES Final Re sult Performing Organization Address [facility] de Phone Number [facility] [place] [address] * Oxyhemoglobin, pulmonary artery (06/08/2022 11:27 PM CDT) Pathologist [facility] Oxyhemoglobin, PA 57.4 % [facility] Comment: Interpretive Data No reference range established. Current interpretive data was last revised 2019. Blood 06/08/2022 11:2 7 PM CDT 06/08/2022 11:36 PM CDT Marcelina Lo APPLIANCE COUNSELOR LAB BLOOD ORDERABLES Final Re sult Performing Organization Address [facility] Co de Phone Number [facility] [place] [address] * (ABNORMAL) aPTT (06/08/2022 11:27 PM CDT) [facility] aPTT 44(H) 27 - 37 sec [facility] Comment: Interpretive Data Therapeutic heparin range: 60.0 - 94.0 seconds. Based on correlation with therapeutic heparin activity range of 0.3-0.7 Units/mL. Current interpretive data was last revised on 2020. Blood 06/08/2022 11:2 7 PM CDT 06/09/2022 12:13 AM CDT Narrative [facility] - 06/09/2022 12:22 AM CDT Draw [...] LAB BLOOD ORDERABLES Ann Marie l Result [facility] Department [place] [address] * POCT glucose (06/08/2022 11:25 PM CDT) [facility] Glucose, POC 156 70 - 199 mg/dL [facility] Blood 06/08/2022 11:2 5 PM CDT 06/08/2022 11:25 PM CDT Catherine Adams MD LAB POCT ORDERABLES - DEVIC E Final Result [facility] [place] [address] * Phosphorus (06/08/2022 8:08 PM CDT) [facility] Phosphorus, pl 3.7 2.3 - 4.5 mg/dL [facility] Blood 06/08/2022 8:08 PM CDT 06/08/2022 8:31 PM CDT Catherine Adams MD LAB BLOOD ORDERABLES Final Result Performing Organization Address City/[facility] Co de Phone Number [facility] [place] [address] * Magnesium (06/08/2022 8:08 PM CDT) [facility] Magnesium 2.4 1.4 - 2.5 mg/dL [facility] Blood 06/08/2022 8:08 PM CDT 06/08/2022 8:31 PM CDT Result [facility] Catherine Adams MD LAB BLOOD ORDERABLES Final Result Performing Organization Address [facility] de Phone Number [facility] [place] [address] * (ABNORMAL) eGFR (06/08/2022 8:08 PM CDT) [facility] eGFR 14(L) 90 - 130 mL/min/1. 73 m2 [facility] Comment: Interpretive Data Reference Interval Normal [...] Ann Marie l Result Performing Organization Address [facility] Co de Phone Number [facility] [place] [address] * (ABNORMAL) Haptoglobin (06/08/2022 8:08 PM CDT) Haptoglobin 219.0(H) 30.0 - 200.0 mg/dL [facility] Blood 06/08/2022 8:08 PM CDT 06/08/2022 8:31 PM CDT Catherine Adams MD LAB BLOOD ORDERABLES Final Result Performing Organization Address [facility] Co de Phone Number [facility] [place] [address] * Lipase (06/08/2022 8:08 PM CDT) Lipase 11 10 - 99 Units/L [facility] Blood 06/08/2022 8:08 PM CDT 06/08/2022 8:31 PM CDT Catherine Adams MD LAB BLOOD ORDERABLES Final Result Performing Organization Address City/[facility] Co de Phone Number [facility] Department [place] [address] * (ABNORMAL) Differential, auto (06/08/2022 8:08 PM CDT) Neutrophil abs 7.0(H) 1.7 - 6.5 K/cumm [facility] Imm gran abs 0.4(H) 0.0 - 0.1 K/cumm [facility] Lymphocyte abs 0.9 0.8 - 3.3 K/cumm [facility] Monocyte abs 0.9(H) 0.2 - 0.8 K/cumm [facility] Eosinophil abs 0.1 0.0 - 0.5 K/cumm [facility] Basophil abs 0.0 0.0 - 0.1 K/cumm [facility] Neutrophil pct 75.3 % [facility] Comment: Interpretive Data Percent cell count reference ranges are not reported, since discordance with absolute values may lead to misinterpretation of CBC data. Current Interpretive Data was last revised on 2017. Imm gran pct 3.8 % [facility] Comment: Interpretive Data Percent cell count reference ranges are not reported, since discordance with absolute values may lead to misinterpretation of CBC data. Current Interpretive Data was last revised on 2017. Lymphocyte pct 10.0 % [facility] Comment: Interpretive Data Percent cell count reference ranges are not reported, since discordance with absolute values may lead to misinterpretation of CBC data. Current Interpretive Data was last revised on 2017. Monocyte pct 9.8 % [facility] Comment: Interpretive Data Percent cell count reference ranges are not reported, since discordance with absolute values may lead to misinterpretation of CBC data. Current Interpretive Data was last revised on 2017. Eosinophil pct 1.0 % [facility] Comment: Interpretive Data Percent cell count reference ranges are not reported, since discordance with absolute values may lead to misinterpretation of CBC data. Current Interpretive Data was last revised on 2017. Basophil pct 0.1 % [facility] Comment: Interpretive Data Percent cell count reference ranges are not reported, since discordance with absolute values may lead to misinterpretation of CBC data. Current Interpretive Data was last revised on 2017. Blood 06/08/2022 8:08 PM CDT 06/08/2022 8:30 PM CDT us Catherine Adams MD LAB BLOOD ORDERABLES Final Result [facility] [place] [address] * (ABNORMAL) Blood gas, arterial (06/08/2022 8:08 PM CDT) pH, Art 7.44 7.35 - 7.45 [facility] PCO2, Arterial 36 35 - 45 mmHg [facility] PO2, Arterial 140(H) 83 - 108 mmHg [facility] HCO3 Art (Calculated) 25 20 - 30 mmol/L [facility] BE, art 0 mmol/L [facility] Comment: Interpretive Data No Reference Range Established Current Interpretive Data was last revised on 2017 O2 Sat Art (Measured) 99(H) 90 - 95 % [facility] Blood 06/08/2022 8:08 PM CDT 06/08/2022 8:15 PM CDT us Marcelina Lo APPLIANCE COUNSELOR LAB BLOOD ORDERABLES Final Re sult Performing Organization Address City/[facility]/ZIP Co de Phone Number [facility] [place] [address] * (ABNORMAL) Hemoglobin total, pulmonary artery (06/08/2022 8:08 PM CDT) Hemoglobin total, PA 8.7(L) 13.0 - 17.5 g/dL [facility] Blood 06/08/2022 8:08 PM CDT 06/08/2022 8:15 PM CDT Marcelina Lo APPLIANCE COUNSELOR LAB BLOOD ORDERABLES Final Re sult [facility] [place] [address] * Oxyhemoglobin, pulmonary artery (06/08/2022 8:08 PM CDT) [facility] Oxyhemoglobin, PA 69.9 % [facility] Comment: Interpretive Data No reference range established. Current interpretive data was last revised 2019. Blood 06/08/2022 8:08 PM CDT 06/08/2022 8:15 PM CDT Marcelina Lo APPLIANCE COUNSELOR LAB BLOOD ORDERABLES Final Re sult [facility] [place] [address] * Respiratory pathogen panel Nasopharyngeal (06/08/2022 8:08 PM CDT) [facility] Influenza A RNA Not Detected Not Detected [facility] Influenza B RNA Not Detected Not Detected [facility] RSV RNA Not Detected Not Detected [facility] COVID-19 RNA Not Detected Not Detected [facility] Coronavirus 229E RNA Not Detected Not Detected [facility] Coronavirus HKU1 RNA Not Detected Not Detected [facility] Coronavirus NL63 RNA Not Detected Not Detected [facility] Coronavirus OC43 RNA Not Detected Not Detected [facility] Adenovirus DNA Not Detected Not Detected [facility] Metapneumovirus RNA Not Detected Not Detected [facility] Rhinovirus/Enterov irus RNA Not Detected Not Detected [facility] Parainfluenza 1 RNA Not Detected Not Detected [facility] Parainfluenza 2 RNA Not Detected Not Detected [facility] Parainfluenza 3 RNA Not Detected Not Detected [facility] Parainfluenza 4 RNA Not Detected Not Detected [facility] B. pertussis DNA Not Detected Not Detected [facility] B. parapertussis DNA Not Detected Not Detected [facility] C. pneumoniae DNA Not Detected Not Detected [facility] M. pneumoniae DNA Not Detected Not Detected [facility] Nasopharyngeal 06/08/2022 8: 08 PM CDT 06/08/2022 9:19 PM CDT Narrative [facility] - 06/08/2022 10:13 PM CDT Previously covid negative Is the Patient experiencing symptoms consistent with COVID?->Unknown Reason for testing?->Patient history unknown Surveillance testing for transplant patient?->No ??Interpretive Data The Onfan FilmArray Respiratory Panel (RP2.1) assay is a [...] assay has FDA clearance for testing of APPLIANCE COUNSELOR swabs. ??The performance of additional specimen types has been assessed by the performing laboratory. ??The performance characteristics of this assay have been determined by [facility]. Current interpretive data was last revised on 22. us Catherine Adams MD LAB MICROBIOLOGY - GENERAL ORDERABLES Final Result Performing Organization Address City/[facility] Co de Phone Number [facility] [place] [address] * Beta-hydroxybutyrate (06/08/2022 8:08 PM CDT) Pathologist [facility] Beta-Hydroxybut yrate 0.3 0.0 - 0.5 mmol/L [facility] Blood 06/08/2022 8:08 PM CDT 06/08/2022 8:15 PM CDT us Marcelina Lo NP LAB BLOOD ORDERABLES Final Re sult Performing Organization Address [facility] Co de Phone Number [facility] [place] [address] * (ABNORMAL) Lactate dehydrogenase (LD) (06/08/2022 8:08 PM CDT) [facility] Lactate dehydrogenase (LDH) 444(H) 100 - 250 Units/L [facility] Blood 06/08/2022 8:08 PM CDT 06/08/2022 8:31 PM CDT us Catherine Adams MD LAB BLOOD ORDERABLES Final Result Performing Organization Address [facility] Co de Phone Number [facility] [place] [address] * (ABNORMAL) Comprehensive metabolic panel (06/08/2022 8:08 PM CDT) Pathologist [facility] Sodium 136 135 - 145 mmol/L [facility] Potassium, pl 4.3 3.3 - 4.9 mmol/L [facility] Chloride 100 97 - 110 mmol/L [facility] CO2 27 22 - 32 mmol/L [facility] Anion gap 9 2 - 15 mmol/L [facility] BUN 42(H) 8 - 25 mg/dL [facility] Creatinine 4.73(H) 0.80 - 1.30 mg/dL [facility] Glucose 146 70 - 199 mg/dL [facility] Comment: Interpretive Data Fasting glucose >/= [...] 2017. Calcium 8.4(L) 8.5 - 10.3 mg/dL [facility] Bilirubin, total 0.5 0.1 - 1.2 mg/dL [facility] Protein, pl 5.8(L) 6.5 - 8.5 g/dL [facility] Albumin 2.8(L) 3.5 - 5.0 g/dL [facility] Alk phos 153(H) 40 - 130 Units/L [facility] ALT 40 7 - 55 Units/L [facility] AST 137(H) 10 - 50 Units/L [facility] Blood 06/08/2022 8:08 PM CDT 06/08/2022 8:31 PM CDT Conrad Weston Chi, MD LAB BLOOD ORDERABLES Ann Marie kramer Result [facility] [place] [address] * (ABNORMAL) CBC with auto differential (06/08/2022 8:08 PM CDT) Pathologist [facility] WBC 9.3 3.8 - 9.9 K/cumm [facility] Hgb 6.9(L) 13.0 - 17.5 g/dL [facility] Hct 19.9(L) 38.9 - 50.3 % [facility] Plt 207 150 - 400 K/cumm [facility] MPV 11.2 9.1 - 12.3 fL [facility] RBC 2.20(L) 4.30 - 5.80 M/cumm [facility] MCV 90.5 81.3 - 96.4 fL [facility] MCH 31.4 27.1 - 33.3 pg [facility] MCHC 34.7 32.3 - 35.7 g/dL [facility] RDW CV 13.5 11.1 - 14.9 % [facility] RDW SD 44.4 35.7 - 48.1 fL [facility] NRBC abs 0.00 0.00 - 0.01 K/cumm [facility] Blood 06/08/2022 8:08 PM CDT 06/08/2022 8:30 PM CDT us Marcelina Lo NP LAB BLOOD ORDERABLES Final Re sult Performing Organization Address City/[facility]/ZIP Co de Phone Number [facility] [place] [address] * POCT glucose (06/08/2022 8:04 PM CDT) Glucose, POC 153 70 - 199 mg/dL [facility] Blood 06/08/2022 8:04 PM CDT 06/08/2022 8:04 PM CDT us Catherine Adams MD LAB POCT ORDERABLES - DEVIC E Final Result [facility] [place] [address] * POCT glucose (06/08/2022 8:03 PM CDT) Glucose, POC 162 70 - 199 mg/dL [facility] Blood 06/08/2022 8:03 PM CDT 06/08/2022 8:03 PM CDT Catherine Adams MD LAB POCT ORDERABLES - DEVIC E Final Result Performing Organization Address City/[facility] Co de Phone Number [facility] [place] [address] * POCT glucose (06/08/2022 4:20 PM CDT) Glucose, POC 135 70 - 199 mg/dL [facility] Blood 06/08/2022 4:20 PM CDT 06/08/2022 4:20 PM CDT Catherine Adams MD LAB POCT ORDERABLES - DEVIC E Final Result Performing Organization Address [facility] [place] [address] * Lactate, whole blood (06/08/2022 4:20 PM CDT) Lactate, bld 1.2 0.7 - 2.0 mmol/L [facility] Blood 06/08/2022 4:20 PM CDT 06/08/2022 4:44 PM CDT Marcelina Lo NP LAB BLOOD ORDERABLES Final Re sult Performing Organization Address [facility] Co de Phone Number [facility] [place] [address] * (ABNORMAL) aPTT (06/08/2022 4:20 PM CDT) aPTT 25(L) 27 - 37 sec [facility] Comment: Interpretive Data Therapeutic heparin range: 60.0 - 94.0 seconds. Based on correlation with therapeutic heparin activity range of 0.3-0.7 Units/mL. Current interpretive data was last revised on 2020. Blood 06/08/2022 4:20 PM CDT 06/08/2022 4:56 PM CDT [facility] - 06/08/2022 5:12 PM CDT Draw STAT [...] Marie l Result Performing Organization Address City/[facility]/ZIP Co de Phone Number [facility] Department [place] [address] * (ABNORMAL) Hemoglobin total, pulmonary artery (06/08/2022 4:20 PM CDT) Hemoglobin total, PA 8.4(L) 13.0 - 17.5 g/dL [facility] Blood 06/08/2022 4:20 PM CDT 06/08/2022 4:44 PM CDT us Marcelina Lo NP LAB BLOOD ORDERABLES Final Re sult Performing Organization Address [facility] Co de Phone Number [facility] [place] [address] * (ABNORMAL) Blood gas, arterial (06/08/2022 4:20 PM CDT) pH, Art 7.44 7.35 - 7.45 [facility] PCO2, Arterial 36 35 - 45 mmHg [facility] PO2, Arterial 156(H) 83 - 108 mmHg [facility] HCO3 Art (Calculated) 25 20 - 30 mmol/L [facility] BE, art 0 mmol/L [facility] Comment: Interpretive Data No Reference Range Established Current Interpretive Data was last revised on 2017 O2 Sat Art (Measured) 98(H) 90 - 95 % [facility] Blood 06/08/2022 4:20 PM CDT 06/08/2022 4:44 PM CDT Marcelina Lo APPLIANCE COUNSELOR LAB BLOOD ORDERABLES Final Re sult Performing Organization Address [facility] Co de Phone Number [facility] [place] [address] * Oxyhemoglobin, pulmonary artery (06/08/2022 4:20 PM CDT) Oxyhemoglobin, PA 63.1 % [facility] Comment: Interpretive Data No reference range established. Current interpretive data was last revised 2019. Blood 06/08/2022 4:20 PM CDT 06/08/2022 4:44 PM CDT Marcelina Lo APPLIANCE COUNSELOR LAB BLOOD ORDERABLES Final Re sult Performing Organization Address [facility] de Phone Number [facility] [place] [address] * TRANSTHORACIC ECHO (TTE) COMPLETE W DOPPLER/CF W CONTRAST (06/08/2022 2:50 PM CDT) Pathologist [facility] LV EF 56 % CARDIOREPORT Anatomical Region Laterality Modality Ultrasound 06/08/2022 12:3 0 PM CDT Narrative 06/08/2022 4:00 PM CDT Patient name: Adelia Garvin Date of test: 06/08/2022 Type of test: TTE w/Doppler Hospital #: 0 Date of : 1970 (M) 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 Burner: Elli Larsen RDCS Referring Physician: CATHERINE ADAMS MD Contrast Agent: Contrast Administered by: Supervised/Interpreted by: Baldomero Foster MD Diagnosis: Location: [facility] Reason for test: HF with [...] 2=Hypo 3=Akinetic 4=Dyskin./Aneurysm 0=Not visualized) Parasternal Long Esopus:MAS=2 BAS=1 MIL=1 IVETH=1 Parasternal Short Esopus:MAS=2 MIS=1 WY=1 MIL=1 MAL=2 MA=1 Apical 4 Chambers:=1 MIS=1 BIS=1 BAL=1 MAL=2 AL=2 AC=2 Apical 2 Chambers:AI=1 WY=1 BI=1 BA=1 MA=1 AA=1 AC=2 LV Global [...] in anterior wall and anterior septem sugegsting CAD/[place] in the LAD territory. LVEF ??is in [...] MD By signing this report, the attending auto rental clerk certifies that he or she has personally supervised and interpreted the echocardiogram and has reviewed and or edited and agrees with the written comments contained within the report. Procedure Note Baldomero Foster MD - 06/08/2022 Patient name: Adelia Garvin Date of test: 06/08/2022 Type of test: TTE w/Doppler [facility] #: 0 Date of : 1970 (M) [employer] Kil[employer] Burner: Elli Larsen [facility] Referring Physician: CATHERINE ADAMS MD Contrast Agent: Contrast Administered by: Supervised/Interpreted by: Baldomero Foster MD Diagnosis: Location: [facility] Reason for test: HF with [...] 2=Hypo 3=Akinetic 4=Dyskin./Aneurysm 0=Not visualized) Parasternal Long Esopus:MAS=2 BAS=1 MIL=1 IVETH=1 Parasternal Short Esopus:MAS=2 MIS=1 WY=1 MIL=1 MAL=2 MA=1 Apical 4 Chambers:=1 MIS=1 BIS=1 BAL=1 MAL=2 AL=2 AC=2 Apical 2 Chambers:AI=1 WY=1 BI=1 BA=1 MA=1 AA=1 AC=2 LV Global [...] in anterior wall and anterior septem sugegsting CAD/[place] in the LAD territory. LVEF is in [...] MD By signing this report, the attending auto rental clerk certifies that he or she has personally [...] vena cava. There is an inferior approach [place]-Liv catheter with tip overlying the right main pulmonary artery. An Impella device is present. A gastric tube courses below the inferior margin of the study. The inferior mediastinum and the entire left hemidiaphragm are excluded from the [id number]. The imaged cardiomediastinal silhouette appears stable. There [...] vena cava. There is an inferior approach [place]-Liv catheter with tip overlying the right main pulmonary artery. An Impella device is present. A gastric tube courses below the inferior margin of the study. The inferior mediastinum and the entire left hemidiaphragm are excluded from the [id number]. The imaged cardiomediastinal silhouette appears stable. There [...] Potassium, whole blood (06/08/2022 11:49 AM CDT) [facility] Potassium, bld 4.1 3.3 - 4.9 mmol/L [facility] Blood 06/08/2022 11:4 9 AM CDT 06/08/2022 12:18 PM CDT Marcelina Lo APPLIANCE COUNSELOR LAB BLOOD ORDERABLES Final Re sult Performing Organization Address City/[facility]/ZIP Co de Phone Number [facility] Department [place] [address] * (ABNORMAL) Hemoglobin total, pulmonary artery (06/08/2022 11:49 AM CDT) [facility] Hemoglobin total, PA 8.4(L) 13.0 - 17.5 g/dL [facility] Blood 06/08/2022 11:4 9 AM CDT 06/08/2022 12:18 PM CDT Marcelina Lo APPLIANCE COUNSELOR LAB BLOOD ORDERABLES Final Re sult [facility] [place] [address] * Oxyhemoglobin, pulmonary artery (06/08/2022 11:49 AM CDT) Oxyhemoglobin, PA 63.8 % [facility] Comment: Interpretive Data No reference range established. Current interpretive data was last revised 2019. Blood 06/08/2022 11:4 9 AM CDT 06/08/2022 12:18 PM CDT Marcelina Lo APPLIANCE COUNSELOR LAB BLOOD ORDERABLES Final Re sult Performing Organization Address [facility] Co de Phone Number [facility] [place] [address] * POCT glucose (06/08/2022 11:46 AM CDT) Glucose, POC 140 70 - 199 mg/dL [facility] Blood 06/08/2022 11:4 6 AM CDT 06/08/2022 11:46 AM CDT Result [facility] Catherine Adams MD LAB POCT ORDERABLES - DEVIC E Final Result Performing Organization Address [facility] de Phone Number [facility] [place] [address] * (ABNORMAL) Blood gas, arterial (06/08/2022 10:44 AM CDT) pH, Art 7.44 7.35 - 7.45 [facility] PCO2, Arterial 34(L) 35 - 45 mmHg [facility] PO2, Arterial 108 83 - 108 mmHg [facility] HCO3 Art (Calculated) 24 20 - 30 mmol/L [facility] BE, art 0 mmol/L [facility] Comment: Interpretive Data No Reference Range Established Current Interpretive Data was last revised on 2017 O2 Sat Art (Measured) 98(H) 90 - 95 % [facility] Blood 06/08/2022 10:4 4 AM CDT 06/08/2022 10:58 AM CDT Result [facility] Marcelina Lo APPLIANCE COUNSELOR LAB BLOOD ORDERABLES Final Re sult Performing Organization Address [facility]/ZIP Co de Phone Number [facility] Department [place] [address] * POCT glucose (06/08/2022 8:31 AM CDT) Glucose, POC 160 70 - 199 mg/dL [facility] Blood 06/08/2022 8:31 AM CDT 06/08/2022 8:31 AM CDT us Catherine Adams MD LAB POCT ORDERABLES - DEVIC E Final Result Performing Organization Address [facility] de Phone Number [facility] [place] [address] * (ABNORMAL) Blood gas, arterial (06/08/2022 7:57 AM CDT) [facility] pH, Art 7.40 7.35 - 7.45 [facility] PCO2, Arterial 38 35 - 45 mmHg [facility] PO2, Arterial 99 83 - 108 mmHg [facility] HCO3 Art (Calculated) 25 20 - 30 mmol/L [facility] BE, art 0 mmol/L [facility] Comment: Interpretive Data No Reference Range Established Current Interpretive Data was last revised on 2017 O2 Sat Art (Measured) 97(H) 90 - 95 % [facility] Blood 06/08/2022 7:57 AM CDT 06/08/2022 8:22 AM CDT us Marcelina Lo APPLIANCE COUNSELOR LAB BLOOD ORDERABLES Final Re sult Performing Organization Address [facility] Co de Phone Number [facility] [place], [place] [id number] * (ABNORMAL) Hemoglobin total, pulmonary artery (06/08/2022 7:57 AM CDT) Hemoglobin total, PA 8.8(L) 13.0 - 17.5 g/dL [facility] Blood 06/08/2022 7:57 AM CDT 06/08/2022 8:22 AM CDT Marcelina Lo APPLIANCE COUNSELOR LAB BLOOD ORDERABLES Final Re sult Performing Organization Address [facility] Co de Phone Number [facility] Department [place] [address] * Oxyhemoglobin, pulmonary artery (06/08/2022 7:57 AM CDT) Oxyhemoglobin, PA 65.7 % [facility] Comment: Interpretive Data No reference range established. Current interpretive data was last revised 2019. Blood 06/08/2022 7:57 AM CDT 06/08/2022 8:22 AM CDT Marcelina Lo APPLIANCE COUNSELOR LAB BLOOD ORDERABLES Final Re sult Performing Organization Address [facility] de Phone Number [facility] Department [place] [address] * X-ray chest 1 view - Portable [...] Impella device. There is an inferior approach [place]-Liv catheter with tip overlying the proximal right [...] Impella device. There is an inferior approach [place]-Liv catheter with tip overlying the proximal right [...] Glucose, POC 157 70 - 199 mg/dL [facility] Blood 06/08/2022 6:29 AM CDT 06/08/2022 6:29 AM CDT Catherine Adams MD LAB POCT ORDERABLES - DEVIC E Final Result Performing Organization Address [facility] de Phone Number [facility] [place] [address] * POCT glucose (06/08/2022 5:26 AM CDT) Glucose, POC 121 70 - 199 mg/dL [facility] Blood 06/08/2022 5:26 AM CDT 06/08/2022 5:26 AM CDT Result [facility] Catherine Adams MD LAB POCT ORDERABLES - DEVIC E Final Result Performing Organization Address [facility] de Phone Number [facility] [place] [address] * POCT glucose (06/08/2022 4:16 AM CDT) [facility] Glucose, POC 111 70 - 199 mg/dL [facility] Blood 06/08/2022 4:16 AM CDT 06/08/2022 4:16 AM CDT Result [facility] Catherine Adams MD LAB POCT ORDERABLES - DEVIC E Final Result Performing Organization Address [facility] de Phone Number [facility] [place] [address] * (ABNORMAL) eGFR (06/08/2022 4:12 AM CDT) [facility] eGFR 8(L) 90 - 130 mL/min/1. 73 m2 [facility] Comment: Interpretive Data Reference Interval Normal [...] BLOOD ORDERABLES Final Result Performing Organization Address [facility] de Phone Number [facility] Department [place] [address] * (ABNORMAL) Hemoglobin total, pulmonary artery (06/08/2022 4:12 AM CDT) Hemoglobin total, PA 8.6(L) 13.0 - 17.5 g/dL [facility] Blood 06/08/2022 4:12 AM CDT 06/08/2022 4:30 AM CDT us Marcelina Lo APPLIANCE COUNSELOR LAB BLOOD ORDERABLES Final Re sult Performing Organization Address City/[facility] Co de Phone Number [facility] Department [place] [address] * (ABNORMAL) Blood gas, arterial (06/08/2022 4:12 AM CDT) Pathologist [facility] pH, Art 7.41 7.35 - 7.45 [facility] PCO2, Arterial 37 35 - 45 mmHg [facility] PO2, Arterial 57(L) 83 - 108 mmHg [facility] HCO3 Art (Calculated) 24 20 - 30 mmol/L [facility] BE, art -1 mmol/L [facility] Comment: Interpretive Data No Reference Range Established Current Interpretive Data was last revised on 2017 O2 Sat Art (Measured) 88(L) 90 - 95 % [facility] Blood 06/08/2022 4:12 AM CDT 06/08/2022 4:30 AM CDT us Marcelina Lo APPLIANCE COUNSELOR LAB BLOOD ORDERABLES Final Re sult Performing Organization Address City/[facility]/ZIP Co de Phone Number [facility] [place] [address] * Oxyhemoglobin, pulmonary artery (06/08/2022 4:12 AM CDT) [facility] Oxyhemoglobin, PA 66.9 % [facility] Comment: Interpretive Data No reference range established. Current interpretive data was last revised 2019. Blood 06/08/2022 4:12 AM CDT 06/08/2022 4:30 AM CDT Marcelina Lo APPLIANCE COUNSELOR LAB BLOOD [place] [address] * Magnesium (06/08/2022 4:12 AM CDT) Pathologist [facility] Magnesium 2.3 1.4 - 2.5 mg/dL [facility] Blood 06/08/2022 4:12 AM CDT 06/08/2022 4:38 AM CDT Catherine Adams MD LAB BLOOD ORDERABLES Final Result [facility] Department [place] [address] * (ABNORMAL) Basic metabolic panel (06/08/2022 4:12 AM CDT) [facility] Sodium 135 135 - 145 mmol/L [facility] Potassium, pl 4.0 3.3 - 4.9 mmol/L [facility] Chloride 99 97 - 110 mmol/L [facility] CO2 26 22 - 32 mmol/L [facility] Anion gap 10 2 - 15 mmol/L [facility] BUN 67(H) 8 - 25 mg/dL [facility] Creatinine 7.65(H) 0.80 - 1.30 mg/dL [facility] Glucose 109 70 - 199 mg/dL [facility] Comment: Interpretive Data Fasting glucose >/= [...] 2017. Calcium 8.2(L) 8.5 - 10.3 mg/dL [facility] Blood 06/08/2022 4:12 AM CDT 06/08/2022 4:38 AM CDT Catherine Adams MD LAB BLOOD ORDERABLES Final Result Performing Organization Address City/[facility]/ZIP Co de Phone Number [facility] Department [place] [address] * POCT glucose (06/08/2022 3:00 AM CDT) Glucose, POC 135 70 - 199 mg/dL [facility] Blood 06/08/2022 3:00 AM CDT 06/08/2022 3:00 AM CDT Catherine Adams MD LAB POCT ORDERABLES - DEVIC E Final Result [facility] [place] [address] * (ABNORMAL) Differential, auto (06/08/2022 2:14 AM CDT) Pathologist [facility] Neutrophil abs 8.2(H) 1.7 - 6.5 K/cumm [facility] Imm gran abs 0.4(H) 0.0 - 0.1 K/cumm [facility] Lymphocyte abs 0.5(L) 0.8 - 3.3 K/cumm [facility] Monocyte abs 1.0(H) 0.2 - 0.8 K/cumm [facility] Eosinophil abs 0.0 0.0 - 0.5 K/cumm [facility] Basophil abs 0.0 0.0 - 0.1 K/cumm [facility] Neutrophil pct 81.0 % [facility] Comment: Interpretive Data Percent cell count reference ranges are not reported, since discordance with absolute values may lead to misinterpretation of CBC data. Current Interpretive Data was last revised on 2017. Imm gran pct 3.8 % [facility] Comment: Interpretive Data Percent cell count reference ranges are not reported, since discordance with absolute values may lead to misinterpretation of CBC data. Current Interpretive Data was last revised on 2017. Lymphocyte pct 5.0 % [facility] Comment: Interpretive Data Percent cell count reference ranges are not reported, since discordance with absolute values may lead to misinterpretation of CBC data. Current Interpretive Data was last revised on 2017. Monocyte pct 10.1 % [facility] Comment: Interpretive Data Percent cell count reference ranges are not reported, since discordance with absolute values may lead to misinterpretation of CBC data. Current Interpretive Data was last revised on 2017. Eosinophil pct 0.0 % [facility] Comment: Interpretive Data Percent cell count reference ranges are not reported, since discordance with absolute values may lead to misinterpretation of CBC data. Current Interpretive Data was last revised on 2017. Basophil pct 0.1 % [facility] Comment: Interpretive Data Percent cell count reference ranges are not reported, since discordance with absolute values may lead to misinterpretation of CBC data. Current Interpretive Data was last revised on 2017. Blood 06/08/2022 2:14 AM CDT 06/08/2022 4:38 AM CDT Catherine Adams MD LAB BLOOD ORDERABLES Final Result Performing Organization Address [facility] Co de Phone Number [facility] Department [place] [address] * POCT glucose (06/08/2022 2:14 AM CDT) Glucose, POC 141 70 - 199 mg/dL [facility] Blood 06/08/2022 2:14 AM CDT 06/08/2022 2:14 AM CDT Catherine Adams MD LAB POCT ORDERABLES - DEVIC E Final Result Performing Organization Address City/[facility] Co de Phone Number [facility] Department [place] [address] * Potassium, whole blood (06/08/2022 2:14 AM CDT) Potassium, bld 4.0 3.3 - 4.9 mmol/L [facility] Blood 06/08/2022 2:14 AM CDT 06/08/2022 2:22 AM CDT Marcelina Lo APPLIANCE COUNSELOR LAB BLOOD ORDERABLES Final Re sult Performing Organization Address [facility] Co de Phone Number [facility] [place] [address] * (ABNORMAL) Blood gas, arterial (06/08/2022 2:14 AM CDT) pH, Art 7.45 7.35 - 7.45 [facility] PCO2, Arterial 33(L) 35 - 45 mmHg [facility] PO2, Arterial 180(H) 83 - 108 mmHg [facility] HCO3 Art (Calculated) 24 20 - 30 mmol/L [facility] BE, art -1 mmol/L [facility] Comment: Interpretive Data No Reference Range Established Current Interpretive Data was last revised on 2017 O2 Sat Art (Measured) 98(H) 90 - 95 % [facility] Blood 06/08/2022 2:14 AM CDT 06/08/2022 2:22 AM CDT Marcelina Lo APPLIANCE COUNSELOR LAB BLOOD ORDERABLES Final Re sult Performing Organization Address [facility] Co de Phone Number [facility] Department [place] [address] * (ABNORMAL) CBC with auto differential (06/08/2022 2:14 AM CDT) Pathologist [facility] WBC 10.1(H) 3.8 - 9.9 K/cumm [facility] Hgb 8.3(L) 13.0 - 17.5 g/dL [facility] Hct 23.1(L) 38.9 - 50.3 % [facility] Plt 218 150 - 400 K/cumm [facility] MPV 11.1 9.1 - 12.3 fL [facility] RBC 2.60(L) 4.30 - 5.80 M/cumm [facility] MCV 88.8 81.3 - 96.4 fL [facility] MCH 31.9 27.1 - 33.3 pg [facility] MCHC 35.9(H) 32.3 - 35.7 g/dL [facility] RDW CV 13.3 11.1 - 14.9 % [facility] RDW SD 43.1 35.7 - 48.1 fL [facility] NRBC abs 0.00 0.00 - 0.01 K/cumm [facility] Blood 06/08/2022 2:14 AM CDT 06/08/2022 4:38 AM CDT us Marcelina Lo APPLIANCE COUNSELOR LAB BLOOD ORDERABLES Final Re sult Performing Organization Address City/[facility]/ZIP Co de Phone Number [facility] Department [place] [address] * POCT glucose (06/08/2022 1:13 AM CDT) Glucose, POC 151 70 - 199 mg/dL [facility] Blood 06/08/2022 1:13 AM CDT 06/08/2022 1:13 AM CDT us Catherine Adams MD LAB POCT ORDERABLES - DEVIC E Final Result Performing Organization Address [facility] Co de Phone Number [facility] [place] [address] * (ABNORMAL) Blood gas, arterial (06/08/2022 12:30 AM CDT) pH, Art 7.50(H) 7.35 - 7.45 [facility] PCO2, Arterial 28(L) 35 - 45 mmHg [facility] PO2, Arterial 144(H) 83 - 108 mmHg [facility] HCO3 Art (Calculated) 22 20 - 30 mmol/L [facility] BE, art 0 mmol/L [facility] Comment: Interpretive Data No Reference Range Established Current Interpretive Data was last revised on 2017 O2 Sat Art (Measured) 98(H) 90 - 95 % [facility] Blood 06/08/2022 12:3 0 AM CDT 06/08/2022 12:39 AM CDT us Marcelina Lo NP LAB BLOOD ORDERABLES Final Re sult Performing Organization Address City/[facility]/ZIP Co de Phone Number [facility] Department [place] [address] * (ABNORMAL) eGFR (06/08/2022 12:28 AM CDT) eGFR 7(L) 90 - 130 mL/min/1. 73 m2 [facility] Comment: Interpretive Data Reference Interval Normal [...] Adams MD LAB BLOOD ORDERABLES Final Result [facility] [place] [address] * (ABNORMAL) Hemoglobin total, pulmonary artery (06/08/2022 12:28 AM CDT) Hemoglobin total, PA 9.0(L) 13.0 - 17.5 g/dL [facility] Blood 06/08/2022 12:2 8 AM CDT 06/08/2022 12:39 AM CDT Marcelina Lo APPLIANCE COUNSELOR LAB BLOOD ORDERABLES Final Re sult Performing Organization Address City/[facility] Co de Phone Number [facility] [place] [address] * Oxyhemoglobin, pulmonary artery (06/08/2022 12:28 AM CDT) Oxyhemoglobin, PA 59.2 % [facility] Comment: Interpretive Data No reference range established. Current interpretive data was last revised 2019. Blood 06/08/2022 12:2 8 AM CDT 06/08/2022 12:39 AM CDT Marcelina Lo APPLIANCE COUNSELOR LAB BLOOD ORDERABLES Final Re sult Performing Organization Address City/[facility]/ZIP Co de Phone Number [facility] [place] [address] * Potassium, whole blood (06/08/2022 12:28 AM CDT) Potassium, bld 3.5 3.3 - 4.9 mmol/L [facility] Blood 06/08/2022 12:2 8 AM CDT 06/08/2022 12:39 AM CDT Catherine Adams MD LAB BLOOD ORDERABLES Final Result [facility] [place] [address] * Magnesium (06/08/2022 12:28 AM CDT) [facility] Magnesium 2.2 1.4 - 2.5 mg/dL [facility] Blood 06/08/2022 12:2 8 AM CDT 06/08/2022 12:42 AM CDT Catherine Adams MD LAB BLOOD ORDERABLES Final Result Performing Organization Address [facility]/ZIP Co de Phone Number [facility] [place] [address] * Beta-hydroxybutyrate (06/08/2022 12:28 AM CDT) [facility] Beta-Hydroxybut yrate 0.1 0.0 - 0.5 mmol/L [facility] Blood 06/08/2022 12:2 8 AM CDT 06/08/2022 12:39 AM CDT Catherine Adams MD LAB BLOOD ORDERABLES Edited Result - Final Performing Organization Address [facility] de Phone Number [facility] Department [place] [address] * (ABNORMAL) Basic metabolic panel (06/08/2022 12:28 AM CDT) [facility] Sodium 135 135 - 145 mmol/L [facility] Potassium, pl 3.5 3.3 - 4.9 mmol/L [facility] Chloride 96(L) 97 - 110 mmol/L [facility] CO2 23 22 - 32 mmol/L [facility] Anion gap 16(H) 2 - 15 mmol/L [facility] BUN 69(H) 8 - 25 mg/dL [facility] Creatinine 8.46(H) 0.80 - 1.30 mg/dL [facility] Glucose 147 70 - 199 mg/dL [facility] Comment: Interpretive Data Fasting glucose >/= [...] 2017. Calcium 7.8(L) 8.5 - 10.3 mg/dL [facility] Blood 06/08/2022 12:2 8 AM CDT 06/08/2022 12:42 AM CDT Catherine Adams MD LAB BLOOD ORDERABLES Final Result Performing Organization Address [facility] de Phone Number [facility] Department [place] [address] * POCT glucose (06/08/2022 12:09 AM CDT) Glucose, POC 169 70 - 199 mg/dL [facility] Blood 06/08/2022 12:0 9 AM CDT 06/08/2022 12:09 AM CDT Catherine Adams MD LAB POCT ORDERABLES - DEVIC E Final Result Performing Organization Address [facility] de Phone Number [facility] Department [place] [address] * (ABNORMAL) eGFR (06/07/2022 10:58 PM CDT) eGFR 7(L) 90 - 130 mL/min/1. 73 m2 [facility] Comment: Interpretive Data Reference Interval Normal [...] ORDERABLES Final Result Performing Organization Address City/[facility]/ZIP Co de Phone Number [facility] Department [place] [address] * (ABNORMAL) POCT glucose (06/07/2022 10:58 PM CDT) [facility] Glucose, POC 211(H) 70 - 199 mg/dL [facility] Blood 06/07/2022 10:5 8 PM CDT 06/07/2022 10:58 PM CDT Catherine Adams MD LAB POCT ORDERABLES - DEVIC E Final Result Performing Organization Address City/[facility]/ZIP Co de Phone Number [facility] Department [place] [address] * Lactate, whole blood (06/07/2022 10:58 PM CDT) Lactate, bld 1.8 0.7 - 2.0 mmol/L [facility] Blood 06/07/2022 10:5 8 PM CDT 06/07/2022 11:05 PM CDT Catherine Adams MD LAB BLOOD ORDERABLES Final Result [facility] [place] [address] * Potassium, whole blood (06/07/2022 10:58 PM CDT) [facility] Potassium, bld 3.4 3.3 - 4.9 mmol/L [facility] Blood 06/07/2022 10:5 8 PM CDT 06/07/2022 11:05 PM CDT Result [facility] Catherine Adams MD LAB BLOOD ORDERABLES Final Result Performing Organization Address [facility] de Phone Number [facility] Department [place] [address] * (ABNORMAL) Phosphorus (06/07/2022 10:58 PM CDT) Pathologist [facility] Phosphorus, pl 4.7(H) 2.3 - 4.5 mg/dL [facility] Comment:Reviewed Blood 06/07/2022 10:5 8 PM CDT 06/07/2022 11:20 PM CDT Catherine Adams MD LAB BLOOD ORDERABLES Final Result Performing Organization Address City/[facility] Co de Phone Number [facility] [place] [address] * Magnesium (06/07/2022 10:58 PM CDT) Pathologist [facility] Magnesium 2.2 1.4 - 2.5 mg/dL [facility] Blood 06/07/2022 10:5 8 PM CDT 06/07/2022 11:20 PM CDT Catherine Adams MD LAB BLOOD ORDERABLES Final Result [facility] [place] [address] * Beta-hydroxybutyrate (06/07/2022 10:58 PM CDT) [facility] Beta-Hydroxybut yrate 0.1 0.0 - 0.5 mmol/L [facility] Blood 06/07/2022 10:5 8 PM CDT 06/07/2022 11:05 PM CDT Catherine Adams MD LAB BLOOD ORDERABLES Final Result Performing Organization Address City/[facility] Co de Phone Number [facility] [place] [address] * (ABNORMAL) Basic metabolic panel (06/07/2022 10:58 PM CDT) [facility] Sodium 134(L) 135 - 145 mmol/L [facility] Potassium, pl 3.4 3.3 - 4.9 mmol/L [facility] Chloride 95(L) 97 - 110 mmol/L [facility] CO2 23 22 - 32 mmol/L [facility] Anion gap 16(H) 2 - 15 mmol/L [facility] BUN 75(H) 8 - 25 mg/dL [facility] Creatinine 8.92(H) 0.80 - 1.30 mg/dL [facility] Glucose 187 70 - 199 mg/dL [facility] Comment: Interpretive Data Fasting glucose >/= [...] 2017. Calcium 8.1(L) 8.5 - 10.3 mg/dL [facility] Blood 06/07/2022 10:5 8 PM CDT 06/07/2022 11:20 PM CDT us Catherine Adams MD LAB BLOOD ORDERABLES Final Result [facility] [place] [address] * (ABNORMAL) Blood gas, arterial (06/07/2022 10:58 PM CDT) pH, Art 7.46(H) 7.35 - 7.45 [facility] PCO2, Arterial 31(L) 35 - 45 mmHg [facility] PO2, Arterial 73(L) 83 - 108 mmHg [facility] HCO3 Art (Calculated) 22 20 - 30 mmol/L [facility] BE, art -2 mmol/L [facility] Comment: Interpretive Data No Reference Range Established Current Interpretive Data was last revised on 2017 O2 Sat Art (Measured) 95 90 - 95 % [facility] Blood 06/07/2022 10:5 8 PM CDT 06/07/2022 11:05 PM CDT us Marcelina Lo NP LAB BLOOD ORDERABLES Final Re sult [facility] [place] [address] * [place] ARTL CATHJ/CANNULJ MNTR/TRANSFUSION SPX PRQ (06/07/2022 10:17 PM CDT) Narrative Eric Reed MD - 06/07/2022 10:17 PM CDT Lavern Morrison MD ? 06/07/2022 10:29 PM Arterial Line Insertion Date/Time: 06/07/2022 10:17 PM Performed by: Lavern Morrison MD Authorized by: Lavern Morrison MD [place] Protocol: RN Notified of Procedure: yes ?? [...] matched to patient identification: n/a ?? Responsible constitution party for transporting specimen(s) to lab determined: n/a ?? us Lavern Morrison MD IV THERAPY ORDERABLES Final Result * (ABNORMAL) POCT glucose (06/07/2022 9:58 PM CDT) Glucose, POC 249(H) 70 - 199 mg/dL [facility] Blood 06/07/2022 9:58 PM CDT 06/07/2022 9:58 PM CDT us Catherine Adams MD LAB POCT ORDERABLES - DEVIC E Final Result [facility] [place] [address] * XR Abdomen Ap 1 Vw (06/07/2022 [...] * Reticulocyte Count (06/07/2022 8:54 PM CDT) [facility] Retics, absolute 0.052 0.020 - 0.087 M/cumm [facility] Retics 2.2 0.4 - 2.9 % [facility] Reticulocyte Hgb 31.7 30.5 - 38.0 pg [facility] Blood 06/07/2022 8:54 PM CDT 06/07/2022 9:52 PM CDT Result [facility] Catherine Adams MD LAB BLOOD ORDERABLES Final Result Performing Organization Address [facility] Co de Phone Number [facility] Department [place] [address] * (ABNORMAL) Hemoglobin and hematocrit (06/07/2022 8:54 PM CDT) [facility] Hgb 7.5(L) 13.0 - 17.5 g/dL [facility] Comment:Hemoglobin delta due to apparent blood transfusion. Hct 20.9(L) 38.9 - 50.3 % [facility] Blood 06/07/2022 8:54 PM CDT 06/07/2022 9:47 PM CDT Catherine Adams MD LAB BLOOD ORDERABLES Final Result Performing Organization Address City/[facility]/ZIP Co de Phone Number [facility] Department of [employer] [place], [place] [id number] * (ABNORMAL) POCT glucose (06/07/2022 8:50 PM CDT) Glucose, POC 304(H) 70 - 199 mg/dL [facility] Blood 06/07/2022 8:50 PM CDT 06/07/2022 8:50 PM CDT Catherine Adams MD LAB POCT ORDERABLES - DEVIC E Final Result Performing Organization Address City/[facility] Co de Phone Number [facility] [place] [address] * (ABNORMAL) Haptoglobin (06/07/2022 8:00 PM CDT) Haptoglobin 312.0(H) 30.0 - 200.0 mg/dL [facility] Blood 06/07/2022 8:00 PM CDT 06/07/2022 8:26 PM CDT Catherine Adams MD LAB BLOOD ORDERABLES Final Result Performing Organization Address [facility] de Phone Number [facility] [place] [address] * (ABNORMAL) Lactate dehydrogenase (LD) (06/07/2022 8:00 PM CDT) Lactate dehydrogenase (LDH) 335(H) 100 - 250 Units/L [facility] Blood 06/07/2022 8:00 PM CDT 06/07/2022 8:26 PM CDT Catherine Adams MD LAB BLOOD ORDERABLES Final Result Performing Organization Address City/[facility] Co de Phone Number [facility] [place] [address] * (ABNORMAL) Ferritin (06/07/2022 8:00 PM CDT) Ferritin 2,062(H) 30 - 400 ng/mL [facility] Blood 06/07/2022 8:00 PM CDT 06/07/2022 8:26 PM CDT Catherine Adams MD LAB BLOOD ORDERABLES Final Result [facility] [place] [address] * (ABNORMAL) Iron profile w/ IBC (06/07/2022 8:00 PM CDT) [facility] Iron 50 50 - 150 mcg/dL [facility] TIBC 130(L) 250 - 400 mcg/dL [facility] Transferrin saturation 38 20 - 50 % [facility] Blood 06/07/2022 8:00 PM CDT 06/07/2022 8:26 PM CDT Catherine Adams MD LAB [place]LOOD [place] [address] * Folate (06/07/2022 8:00 PM CDT) Pathologist [facility] Folic acid 8.7 >=5.0 ng/mL [facility] Blood 06/07/2022 8:00 PM CDT 06/07/2022 8:26 PM CDT Catherine Adams MD LAB BLOOD [place] [address] * Vitamin B12 (06/07/2022 8:00 PM CDT) Pathologist [facility] Vitamin B12 373 230 - 1,250 pg/mL [facility] Blood 06/07/2022 8:00 PM CDT 06/07/2022 8:26 PM CDT Catherine Adams MD LAB BLOOD ORDERABLES Final Result Performing Organization Address [facility] [place] [address] * Oxyhemoglobin, pulmonary artery (06/07/2022 7:57 PM CDT) Oxyhemoglobin, PA 57.3 % [facility] Comment: Interpretive Data No reference range established. Current interpretive data was last revised 2019. Blood 06/07/2022 7:57 PM CDT 06/07/2022 8:09 PM CDT Result [facility] Mareclina Lo APPLIANCE COUNSELOR LAB BLOOD ORDERABLES Final Re sult Performing Organization Address [facility] [place] [address] * (ABNORMAL) Hemoglobin total, pulmonary artery (06/07/2022 7:57 PM CDT) Hemoglobin total, PA 8.7(L) 13.0 - 17.5 g/dL [facility] Blood 06/07/2022 7:57 PM CDT 06/07/2022 8:09 PM CDT Result [facility] Marcelina Lo APPLIANCE COUNSELOR LAB BLOOD ORDERABLES Final Re sult Performing Organization Address [facility] [place] [address] * (ABNORMAL) aPTT (06/07/2022 7:57 PM CDT) aPTT 44(H) 27 - 37 sec [facility] Comment: Interpretive Data Therapeutic heparin range: 60.0 - 94.0 seconds. Based on correlation with therapeutic heparin activity range of 0.3-0.7 Units/mL. Current interpretive data was last revised on 2020. Blood 06/07/2022 7:57 PM CDT 06/07/2022 8:14 PM CDT Narrative [facility] - 06/07/2022 8:20 PM CDT Draw [...] Ann Marie l Result Performing Organization Address [facility] Co de Phone Number [facility] Department [place] [address] * Potassium, whole blood (06/07/2022 7:57 PM CDT) Potassium, bld 3.3 3.3 - 4.9 mmol/L [facility] Blood 06/07/2022 7:57 PM CDT 06/07/2022 8:09 PM CDT Result [facility] Catherine Adams MD LAB BLOOD ORDERABLES Final Result Performing Organization Address [facility] de Phone Number [facility] Department [place] [address] * (ABNORMAL) POCT glucose (06/07/2022 7:51 PM CDT) Glucose, POC 325(H) 70 - 199 mg/dL [facility] Blood 06/07/2022 7:51 PM CDT 06/07/2022 7:51 PM CDT Catherine Adams MD LAB POCT ORDERABLES - DEVIC E Final Result Performing Organization Address [facility] Co de Phone Number [facility] [place] Department [place] [address] * (ABNORMAL) Differential, auto (06/07/2022 7:42 PM CDT) Neutrophil abs 7.3(H) 1.7 - 6.5 K/cumm [facility] Imm gran abs 0.2(H) 0.0 - 0.1 K/cumm [facility] Lymphocyte abs 0.6(L) 0.8 - 3.3 K/cumm [facility] Monocyte abs 0.5 0.2 - 0.8 K/cumm [facility] Eosinophil abs 0.0 0.0 - 0.5 K/cumm [facility] Basophil abs 0.0 0.0 - 0.1 K/cumm [facility] Neutrophil pct 85.1 % [facility] Comment: Interpretive Data Percent cell count reference ranges are not reported, since discordance with absolute values may lead to misinterpretation of CBC data. Current Interpretive Data was last revised on 2017. Imm gran pct 2.4 % [facility] Comment: Interpretive Data Percent cell count reference ranges are not reported, since discordance with absolute values may lead to misinterpretation of CBC data. Current Interpretive Data was last revised on 2017. Lymphocyte pct 6.6 % [facility] Comment: Interpretive Data Percent cell count reference ranges are not reported, since discordance with absolute values may lead to misinterpretation of CBC data. Current Interpretive Data was last revised on 2017. Monocyte pct 5.8 % [facility] Comment: Interpretive Data Percent cell count reference ranges are not reported, since discordance with absolute values may lead to misinterpretation of CBC data. Current Interpretive Data was last revised on 2017. Eosinophil pct 0.0 % [facility] Comment: Interpretive Data Percent cell count reference ranges are not reported, since discordance with absolute values may lead to misinterpretation of CBC data. Current Interpretive Data was last revised on 2017. Basophil pct 0.1 % [facility] Comment: Interpretive Data Percent cell count reference ranges are not reported, since discordance with absolute values may lead to misinterpretation of CBC data. Current Interpretive Data was last revised on 2017. Blood 06/07/2022 7:42 PM CDT 06/07/2022 8:25 PM CDT Catherine Adams MD LAB BLOOD ORDERABLES Final Result Performing Organization Address [facility] Co de Phone Number [facility] Department [place] [address] * (ABNORMAL) CBC with auto differential (06/07/2022 7:42 PM CDT) [facility] WBC 8.6 3.8 - 9.9 K/cumm [facility] Hgb 4.3(C) 13.0 - 17.5 g/dL [facility] Comment:Critical result call ed to and read back by LAVERN MORRISON RN on 06 07 2022 at 2036 to Janis Melton. Hct 12.3(L) 38.9 - 50.3 % [facility] Plt 233 150 - 400 K/cumm [facility] MPV 11.5 9.1 - 12.3 fL [facility] RBC 1.38(L) 4.30 - 5.80 M/cumm [facility] MCV 89.1 81.3 - 96.4 fL [facility] MCH 31.2 27.1 - 33.3 pg [facility] MCHC 35.0 32.3 - 35.7 g/dL [facility] RDW CV 13.3 11.1 - 14.9 % [facility] RDW SD 43.5 35.7 - 48.1 fL [facility] NRBC abs 0.00 0.00 - 0.01 K/cumm [facility] Blood 06/07/2022 7:42 PM CDT 06/07/2022 8:25 PM CDT Catherine Adams MD LAB BLOOD ORDERABLES Final Result Performing Organization Address [facility] Co de Phone Number [facility] Department [place] [address] * (ABNORMAL) Beta-hydroxybutyrate (06/07/2022 6:24 PM CDT) Beta-Hydroxybut yrate 2.3(H) 0.0 - 0.5 mmol/L [facility] Blood 06/07/2022 6:24 PM CDT 06/07/2022 6:42 PM CDT Catherine Adams MD LAB BLOOD ORDERABLES Final Result [facility] [place] [address] * (ABNORMAL) Differential, auto (06/07/2022 6:24 PM CDT) Pathologist [facility] Neutrophil abs 6.5 1.7 - 6.5 K/cumm [facility] Imm gran abs 0.2(H) 0.0 - 0.1 K/cumm [facility] Lymphocyte abs 0.4(L) 0.8 - 3.3 K/cumm [facility] Monocyte abs 0.3 0.2 - 0.8 K/cumm [facility] Eosinophil abs 0.0 0.0 - 0.5 K/cumm [facility] Basophil abs 0.0 0.0 - 0.1 K/cumm [facility] Neutrophil pct 88.3 % [facility] Comment: Interpretive Data Percent cell count reference ranges are not reported, since discordance with absolute values may lead to misinterpretation of CBC data. Current Interpretive Data was last revised on 2017. Imm gran pct 2.0 % [facility] Comment: Interpretive Data Percent cell count reference ranges are not reported, since discordance with absolute values may lead to misinterpretation of CBC data. Current Interpretive Data was last revised on 2017. Lymphocyte pct 5.3 % [facility] Comment: Interpretive Data Percent cell count reference ranges are not reported, since discordance with absolute values may lead to misinterpretation of CBC data. Current Interpretive Data was last revised on 2017. Monocyte pct 4.4 % [facility] Comment: Interpretive Data Percent cell count [...] LAB BLOOD ORDERABLES Final Result [facility] [place] [address] * Blood culture Blood Wrist, right (06/07/2022 [...] organism identification may be performed using the Microstimigene Gram-Positive Blood Culture Assay. This assay detects microbial DNA in positive blood culture broth via hybridization of target DNA to capture oligonucleotides on a microarray. This assay has been cleared by the [place] Food and Drug Administration and its performance characteristics have been verified by the [facility] Microbiology Laboratory. 5. ?For questions about this culture, contact the Microbiology Laboratory at [phone]. Interpretive data was last revised on 2020. Catherine Adams MD LAB MICROBIOLOGY - GENERAL ORDERABLES Final Result [facility] [place] [address] * Blood culture Blood Central venous catheter (06/07/2022 6:24 PM CDT) Report Final Report: No growth [facility] Blood (Central venous catheter) 06/07/2022 6:24 PM CDT 06/07/2022 6:50 PM CDT Luis APAR[facility]IO [facility] - 06/12/2022 7:00 AM CDT 1. ?Blood [...] performance characteristics have been verified by the [facility] Microbiology Laboratory. 5. ?For questions about this culture, contact the Microbiology Laboratory at [phone]. Interpretive data was last revised on 2020. Catherine Adams MD LAB MICROBIOLOGY - GENERAL ORDERABLES Final Result [facility] [place] [address] * (ABNORMAL) CBC with auto differential (06/07/2022 6:24 PM CDT) WBC 7.3 3.8 - 9.9 K/cumm [facility] Hgb 7.8(L) 13.0 - 17.5 g/dL [facility] Hct 22.1(L) 38.9 - 50.3 % [facility] Plt 194 150 - 400 K/cumm [facility] MPV 11.2 9.1 - 12.3 fL [facility] RBC 2.52(L) 4.30 - 5.80 M/cumm [facility] MCV 87.7 81.3 - 96.4 fL [facility] MCH 31.0 27.1 - 33.3 pg [facility] MCHC 35.3 32.3 - 35.7 g/dL [facility] RDW CV 13.2 11.1 - 14.9 % [facility] RDW SD 42.8 35.7 - 48.1 fL [facility] NRBC abs 0.00 0.00 - 0.01 K/cumm [facility] Blood 06/07/2022 6:24 PM CDT 06/07/2022 6:37 PM CDT Catherine Adams MD LAB BLOOD ORDERABLES Final Result Performing Organization Address City/[facility]/ZIP Co de Phone Number [facility] [place] [address] * XR Chest 1 View (06/07/2022 6:20 [...] Impella device. There is an inferior approach [place]-Liv catheter with tip overlying the proximal right [...] and agrees with it. Electronically signed by: Jonh Bruno M.D. Narrative 06/08/2022 9:59 AM CDT [...] Impella device. There is an inferior approach [place]-Liv catheter with tip overlying the proximal right [...] CDT) pH, Art 7.46(H) 7.35 - 7.45 [facility] PCO2, Arterial 27(L) 35 - 45 mmHg [facility] PO2, Arterial 105 83 - 108 mmHg [facility] HCO3 Art (Calculated) 20 20 - 30 mmol/L [facility] BE, art -4 mmol/L [facility] Comment: Interpretive Data No Reference Range Established Current Interpretive Data was last revised on 2017 O2 Sat Art (Measured) 98(H) 90 - 95 % [facility] Blood 06/07/2022 5:20 PM CDT 06/07/2022 5:26 PM CDT Catherine Adams MD LAB BLOOD ORDERABLES Final Result [facility] [place] [address] * Critical result callback Cardio chemistry (06/07/2022 5:12 PM CDT) Date Notified [id number] [facility] Time Notified 1850 [facility] Test name Troponin [facility] Called/Read Back Anali [facility] Credentials MD [facility] Called By Usha [facility] Blood 06/07/2022 5:12 PM CDT 06/07/2022 6:10 PM CDT Catherine Adams MD LAB BLOOD ORDERABLES Final Result Performing Organization Address [facility] Co de Phone Number [facility] Department [place] [address] * (ABNORMAL) Troponin I high-sensitivity (06/07/2022 5:12 PM CDT) Pathologist [facility] Trop I hs 2,704(C) <=35 ng/L [facility] Comment: Interpretive Data For further hscTnI resources including the diagnostic algorithm and an aid in interpretation, copy and paste this link: [email or web address]/show/[email or web address] Current Interpretive Data last revised 2020. Blood 06/07/2022 5:12 PM CDT 06/07/2022 5:29 PM CDT Catherine Adams MD LAB BLOOD ORDERABLES Final Result Performing Organization Address [facility] de Phone Number [facility] Department [place] [address] * Lactate (06/07/2022 5:12 PM CDT) [facility] Lactate 1.3 0.7 - 2.0 mmol/L [facility] Blood 06/07/2022 5:12 PM CDT 06/07/2022 5:22 PM CDT Catherine Adams MD LAB BLOOD ORDERABLES Final Result Performing Organization Address City/[facility] Co de Phone Number [facility] [place] [address] * (ABNORMAL) eGFR (06/07/2022 5:08 PM CDT) [facility] eGFR 5(L) 90 - 130 mL/min/1. 73 m2 [facility] Comment: Interpretive Data Reference Interval Normal [...] Chi, MD LAB BLOOD ORDERABLES Ann Marie karmer Result [facility] Department [place] [address] * (ABNORMAL) Triglycerides (06/07/2022 5:08 PM CDT) Triglycerides 172(H) <=149 mg/dL [facility] Comment: Hemolyzed; result may be falsely [...] BLOOD ORDERABLES Final Result Performing Organization Address City/State/[facility] Co de Phone Number [facility] [place] [address] * (ABNORMAL) Hemoglobin total, central venous (06/07/2022 5:08 PM CDT) Hemoglobin total, CV 8.2(L) 13.0 - 17.5 g/dL [facility] Blood 06/07/2022 5:08 PM CDT 06/07/2022 5:22 PM CDT Narrative [facility] - 06/07/2022 5:25 PM CDT If using Miley Cardiac Output Method Result [facility] Catherine Adams MD LAB BLOOD ORDERABLES Final Result Performing Organization Address City/[facility] Co de Phone Number [facility] [place] [address] * Methemoglobin, central venous (06/07/2022 5:08 PM CDT) Methemoglobin, CV 2.1 % [facility] Comment: Interpretive Data No reference range established. Current interpretive data was last revised 2019. Blood 06/07/2022 5:08 PM CDT 06/07/2022 5:22 PM CDT Narrative [facility] - 06/07/2022 5:25 PM CDT If using Miley Cardiac Output Method Result [facility] Catherine Adams MD LAB BLOOD ORDERABLES Final Result Performing Organization Address [facility] [place] [address] * Carboxyhemoglobin, central venous (06/07/2022 5:08 PM CDT) Carboxyhemoglobin , CV 1.0 % [facility] Comment: Interpretive Data No reference range established. Current interpretive data was last revised 2019. Blood 06/07/2022 5:08 PM CDT 06/07/2022 5:22 PM CDT Narrative [facility] - 06/07/2022 5:26 PM CDT If using Miley Cardiac Output Method Catherine Adams MD LAB BLOOD ORDERABLES Final Result Performing Organization Address [facility] [place] [address] * Oxyhemoglobin, central venous (06/07/2022 5:08 PM CDT) Oxyhemoglobin, CV 66.6 % [facility] Comment: Interpretive Data No reference range established. Current interpretive data was last revised 2019. Blood 06/07/2022 5:08 PM CDT 06/07/2022 5:22 PM CDT Narrative [facility] - 06/07/2022 5:25 PM CDT If using Miley Cardiac Output Method Catherine Adams MD LAB BLOOD ORDERABLES Final Result Performing Organization Address City/[facility] Co de Phone Number [facility] Department [place] [address] * (ABNORMAL) Phosphorus (06/07/2022 5:08 PM CDT) [facility] Phosphorus, pl 7.2(H) 2.3 - 4.5 mg/dL [facility] Comment:Hemolyzed; result ma y be falsely elevated Blood 06/07/2022 5:08 PM CDT 06/07/2022 5:33 PM CDT Conrad [facility]on Chi, MD LAB BLOOD ORDERABLES Ann Marie l Result Performing Organization Address [facility] de Phone Number [facility] Department [place] [address] * Magnesium (06/07/2022 5:08 PM CDT) [facility] Magnesium 2.2 1.4 - 2.5 mg/dL [facility] Blood 06/07/2022 5:08 PM CDT 06/07/2022 5:33 PM CDT [facility] Chi, MD LAB BLOOD ORDERABLES Ann Marie l Result Performing Organization Address [facility] Co de Phone Number [facility] Department [place] [address] * (ABNORMAL) Comprehensive metabolic panel (06/07/2022 5:08 PM CDT) Sodium 129(L) 135 - 145 mmol/L [facility] Potassium, pl See Comment 3.3 - 4.9 mmol/L [facility] Comment:Credited; Hemolyzed Specimen Chloride 87(L) 97 - 110 mmol/L [facility] CO2 21(L) 22 - 32 mmol/L [facility] Anion gap 21(H) 2 - 15 mmol/L [facility] BUN 80(H) 8 - 25 mg/dL [facility] Creatinine 10.36(H) 0.80 - 1.30 mg/dL [facility] Glucose 329(H) 70 - 199 mg/dL [facility] Comment: Interpretive Data Fasting glucose >/= [...] 2017. Calcium 8.1(L) 8.5 - 10.3 mg/dL [facility] Bilirubin, total 0.8 0.1 - 1.2 mg/dL [facility] Protein, pl 6.0(L) 6.5 - 8.5 g/dL [facility] Albumin 2.5(L) 3.5 - 5.0 g/dL [facility] Alk phos 177(H) 40 - 130 Units/L [facility] Comment:Hemolyzed; result ma y be falsely decreased ALT See Comment 7 - 55 Units/L [facility] Comment:Credited; Hemolyzed Specimen AST See Comment 10 - 50 Units/L [facility] Comment:Credited; Hemolyzed Specimen Blood 06/07/2022 5:08 PM CDT 06/07/2022 5:33 PM CDT [facility] Chi, MD LAB BLOOD ORDERABLES Ann Marie l Result Performing Organization Address [facility] Co de Phone Number [facility] [place] [address] * (ABNORMAL) POCT glucose (06/07/2022 5:00 PM CDT) Pathologist [facility] Glucose, POC 385(H) 70 - 199 mg/dL [facility] Glucose comment 1 Glu2: RN/MD Notified [facility] Blood 06/07/2022 5:00 PM CDT 06/07/2022 5:00 PM CDT Catherine Adams MD LAB POCT ORDERABLES - DEVIC E Final Result Performing Organization Address [facility] Co de Phone Number [facility] [place] [address] * ECG 12 lead (06/07/2022 4:59 PM CDT) [facility] Ventricular Rate EKG/Min 51 BPM [facility] Atrial Rate 51 BPM [facility] TX-Interval (MSEC) 212 ms [facility] QRS-Interval (MSEC) 130 ms [facility] QT-Interval (MSEC) 580 ms [facility] QTc 534 ms [facility] P Esopus 69 degrees [facility] R [place] -38 degrees [facility] T [place] 95 degrees [facility] Diagnosis Sinus bradycardia with 1st degree [...] ([id number]) on 06/08/2022 9:42:26 AM [facility] 06/07/2022 4:59 PM CDT 06/08/2022 9:42 AM CDT us Catherine Adams MD ECG ORDERABLES Final Resul t [email or web address] [facility] * MARIELLA MAJOR CORONARY (06/07/2022 3:57 PM CDT) Anatomical Region Laterality Modality X-Ray Angiograph y Narrative 06/07/2022 4:24 PM CDT Cardiac catheterization Interventional fellow: ??Dr. Fernando Talavera HPI 51-year-old morbidly obese male with a history of end-stage renal disease on peritoneal dialysis, hypertension diabetes hyperlipidemia and recent non ST elevation [place] now referred for complex PCI. ??Patient is followed at an outside hospital repetitive episodes of flash pulmonary edema/hypertensive urgency despite 3 medications. ??Recently underwent cardiac catheterization revealed a 90% ostial circumflex and a left-dominant circulation, 98% mid circumflex and a 70% om lesion. ??It is felt to be extremely high risk was transferred to [facility]. ?? He had hypoxemic respiratory arrest that [...] ??Using ultrasound directed micropuncture technique a 7 Czech 45 cm sheath placed in the right femoral artery over an [place] wire. ?? Subsequently, an 8 Czech sheath inserted into the left femoral vein with placement of a [place]-Liv catheter with the pulmonary artery. ??Heparin was administered to maintain ACT of 300 seconds or greater. ??Angioplasty was performed with a 7 Czech EBU 3.5 guide catheter, 0.014 in engine pilot 50 wire in the circumflex and [...] artery sheath was exchanged for a 14 Czech Impella sheath. ??An Impella CP was placed into the left ventricle producing 3.2-3.4 liters/minute flow. ??The peel-away sheath was removed and the permanent sheath inserted. ??Two 6 Czech pro style were placed prior to sheath insertion with preserved sterilely. ?? Impella sheath was sewn in place as well as a [place]-Liv catheter. ?? Trialysis catheter was placed into [...] low range (06/07/2022 2:15 PM CDT) Pathologist [facility] ACT 226(H) 123 - 168 sec [facility] Blood 06/07/2022 2:15 PM CDT 06/07/2022 2:15 PM CDT Cathreine Adams MD LAB POCT ORDERABLES - DEVIC E Final Result [facility] [place] [address] * (ABNORMAL) POC Blood Gas and Chemistries, Arterial - (06/07/2022 1:52 PM CDT) [facility] pH, Art POC 7.30(L) 7.35 - 7.45 [facility] pCO2, Art POC 42 35 - 45 mmHg [facility] pO2, Art POC 49(L) 83 - 108 mmHg [facility] Na, POC 132(L) 135 - 145 mmol/L [facility] K POC 4.1 3.3 - 4.9 mmol/L [facility] Comment: Interpretive Data This method is not able to assess for hemolysis, which may falsely increase potassium concentrations. If further testing is needed to evaluate this result, consider in-laboratory plasma potassium. Current Interpretive Data was last revised on 2022. Cl, POC 96(L) 97 - 110 mmol/L [facility] Ionized Ca, POC 4.62 4.50 - 5.10 mg/dL [facility] Glucose, POC 293(H) 70 - 199 mg/dL [facility] Lactate, POC 3.4(H) 0.7 - 2.2 mmol/L [facility] SO2 (uyen) arterial 78(L) 90 - 95 % [facility] Base excess, POC -5.5 mmol/L [facility] HCO3, Art POC 21 20 - 30 mmol/L [facility] Hct, POC 30.0(L) 41.4 - 51.6 % [facility] O2 Sat, Art POC (Calc) 80 % [facility] Total Hb, POC 9.9(L) 13.8 - 17.2 g/dL [facility] Blood 06/07/2022 1:52 PM CDT 06/07/2022 1:52 PM CDT Conrad Weston Chi, MD LAB POCT ORDERABLES - DEV ICE Final Result Performing Organization Address City/[facility]/ZIP Co de Phone Number [facility] Department [place] [address] * (ABNORMAL) POCT Activated clotting time, low range (06/07/2022 1:49 PM CDT) ACT 214(H) 123 - 168 sec [facility] Blood 06/07/2022 1:49 PM CDT 06/07/2022 1:49 PM CDT Catherine Adams MD LAB POCT ORDERABLES - DEVIC E Final Result Performing Organization Address City/[facility]/ZIP Co de Phone Number [facility] Department [place] [address] * (ABNORMAL) POC Blood Gas and Chemistries, Arterial - (06/07/2022 1:31 PM CDT) pH, Art POC 7.16(C) 7.35 - 7.45 [facility] pCO2, Art POC 53(H) 35 - 45 mmHg [facility] pO2, Art POC 41(L) 83 - 108 mmHg [facility] Na, POC 130(L) 135 - 145 mmol/L [facility] K POC 3.5 3.3 - 4.9 mmol/L [facility] Comment: Interpretive Data This method is not able to assess for hemolysis, which may falsely increase potassium concentrations. If further testing is needed to evaluate this result, consider in-laboratory plasma potassium. Current Interpretive Data was last revised on 2022. Cl, POC 93(L) 97 - 110 mmol/L [facility] Ionized Ca, POC 4.29(L) 4.50 - 5.10 mg/dL [facility] Glucose, POC 300(H) 70 - 199 mg/dL [facility] Lactate, POC 5.3(C) 0.7 - 2.2 mmol/L [facility] SO2 (uyen) arterial 59(C) 90 - 95 % [facility] Base excess, POC -10.1 mmol/L [facility] HCO3, Art POC 19(L) 20 - 30 mmol/L [facility] Hct, POC 31.0(L) 41.4 - 51.6 % [facility] O2 Sat, Art POC (Calc) 60 % [facility] Total Hb, POC 10.2(L) 13.8 - 17.2 g/dL [facility] Blood 06/07/2022 1:31 PM CDT 06/07/2022 1:31 PM CDT us Conrad Weston Chi, MD LAB POCT ORDERABLES - DEV ICE Final Result Performing Organization Address City/[facility]/ZIP Co de Phone Number [facility] Department [place] [address] * (ABNORMAL) POCT Activated clotting time, low range (06/07/2022 12:47 PM CDT) ACT 289(H) 123 - 168 sec [facility] Blood 06/07/2022 12:4 7 PM CDT 06/07/2022 12:47 PM CDT us Catherine Adams MD LAB POCT ORDERABLES - DEVIC E Final Result Performing Organization Address City/[facility]/ZIP Co de Phone Number [facility] Department [place] [address] * (ABNORMAL) POCT Activated clotting time, low range (06/07/2022 12:32 PM CDT) ACT 249(H) 123 - 168 sec [facility] Blood 06/07/2022 12:3 2 PM CDT 06/07/2022 12:32 PM CDT Catherine Adams MD LAB POCT ORDERABLES - DEVIC E Final Result Performing Organization Address City/[facility] Co de Phone Number [facility] Department [place] [address] * POCT glucose (06/07/2022 11:27 AM CDT) Pathologist [facility] Glucose, POC 179 70 - 199 mg/dL [facility] Blood 06/07/2022 11:2 7 AM CDT 06/07/2022 11:27 AM CDT us Conrad Weston Chi, MD LAB POCT ORDERABLES - DEV ICE Final Result Performing Organization Address [facility] de Phone Number [facility] Department [place] [address] * (ABNORMAL) aPTT (06/07/2022 9:59 AM CDT) [facility] aPTT 71(H) 27 - 37 sec [facility] Comment: Interpretive Data Therapeutic heparin range: 60.0 - 94.0 seconds. Based on correlation with therapeutic heparin activity range of 0.3-0.7 Units/mL. Current interpretive data was last revised on 2020. Blood 06/07/2022 9:59 AM CDT 06/07/2022 10:19 AM CDT Narrative [facility] - 06/07/2022 10:46 AM CDT Draw [...] Ann Marie l Result Performing Organization Address [facility] Co de Phone Number [facility] [place] [address] * (ABNORMAL) POCT glucose (06/07/2022 7:59 AM CDT) Glucose, POC 247(H) 70 - 199 mg/dL [facility] Blood 06/07/2022 7:59 AM CDT 06/07/2022 7:59 AM CDT Conrad Weston Chi, MD LAB POCT ORDERABLES - DEV ICE Final Result Performing Organization Address [facility] Co de Phone Number [facility] [place] [address] * (ABNORMAL) POCT glucose (06/07/2022 4:17 AM CDT) Glucose, POC 239(H) 70 - 199 mg/dL [facility] Blood 06/07/2022 4:17 AM CDT 06/07/2022 4:17 AM CDT Conrad Weston Chi, MD LAB POCT ORDERABLES - DEV ICE Final Result Performing Organization Address [facility] [place] [address] * (ABNORMAL) aPTT (06/07/2022 4:17 AM CDT) aPTT 57(H) 27 - 37 sec [facility] Comment: Interpretive Data Therapeutic heparin range: 60.0 - 94.0 seconds. Based on correlation with therapeutic heparin activity range of 0.3-0.7 Units/mL. Current interpretive data was last revised on 2020. Blood 06/07/2022 4:17 AM CDT 06/07/2022 4:37 AM CDT Narrative [facility] - 06/07/2022 5:01 AM CDT Draw [...] Ann Marie l Result Performing Organization Address [facility] Co de Phone Number [facility] [place] [address] * POCT glucose (06/06/2022 11:51 PM CDT) Glucose, POC 170 70 - 199 mg/dL [facility] Blood 06/06/2022 11:5 1 PM CDT 06/06/2022 11:51 PM CDT Conrad Weston Chi, MD LAB POCT ORDERABLES - DEV ICE Final Result Performing Organization Address [facility] Co de Phone Number [facility] [place] [address] * POCT glucose (06/06/2022 8:18 PM CDT) Glucose, POC 123 70 - 199 mg/dL [facility] Blood 06/06/2022 8:18 PM CDT 06/06/2022 8:18 PM CDT Conrad Weston Chi, MD LAB POCT ORDERABLES - DEV ICE Final Result Performing Organization Address [facility] Co de Phone Number [facility] Department [place] [address] * (ABNORMAL) eGFR (06/06/2022 8:16 PM CDT) Pathologist [facility] eGFR 5(L) 90 - 130 mL/min/1. [...] LAB BLOOD ORDERABLES Ann Marie kramer Result [facility] [place] [address] * (ABNORMAL) Differential, auto (06/06/2022 8:16 PM CDT) Pathologist [facility] Neutrophil abs 9.8(H) 1.7 - 6.5 K/cumm [facility] Imm gran abs 0.2(H) 0.0 - 0.1 K/cumm [facility] Lymphocyte abs 0.7(L) 0.8 - 3.3 K/cumm [facility] Monocyte abs 0.9(H) 0.2 - 0.8 K/cumm [facility] Eosinophil abs 0.1 0.0 - 0.5 K/cumm [facility] Basophil abs 0.0 0.0 - 0.1 K/cumm [facility] Neutrophil pct 84.4 % [facility] Comment: Interpretive Data Percent cell count reference ranges are not reported, since discordance with absolute values may lead to misinterpretation of CBC data. Current Interpretive Data was last revised on 2017. Imm gran pct 1.3 % [facility] Comment: Interpretive Data Percent cell count reference ranges are not reported, since discordance with absolute values may lead to misinterpretation of CBC data. Current Interpretive Data was last revised on 2017. Lymphocyte pct 6.0 % [facility] Comment: Interpretive Data Percent cell count reference ranges are not reported, since discordance with absolute values may lead to misinterpretation of CBC data. Current Interpretive Data was last revised on 2017. Monocyte pct 7.6 % [facility] Comment: Interpretive Data Percent cell count reference ranges are not reported, since discordance with absolute values may lead to misinterpretation of CBC data. Current Interpretive Data was last revised on 2017. Eosinophil pct 0.5 % [facility] Comment: Interpretive Data Percent cell count reference ranges are not reported, since discordance with absolute values may lead to misinterpretation of CBC data. Current Interpretive Data was last revised on 2017. Basophil pct 0.2 % [facility] Comment: Interpretive Data Percent cell count reference ranges are not reported, since discordance with absolute values may lead to misinterpretation of CBC data. Current Interpretive Data was last revised on 2017. Blood 06/06/2022 8:16 PM CDT 06/06/2022 8:41 PM CDT Conrad Weston Chi, MD LAB BLOOD ORDERABLES Ann Marie l Result Performing Organization Address City/[facility]/ZIP Co de Phone Number [facility] [place], [place] [id number] * (ABNORMAL) Phosphorus (06/06/2022 8:16 PM CDT) [facility] Phosphorus, pl 6.6(H) 2.3 - 4.5 mg/dL [facility] Blood 06/06/2022 8:16 PM CDT 06/06/2022 8:41 PM CDT Conrad Weston Chi, MD LAB BLOOD ORDERABLES Ann Marie l Result Performing Organization Address [facility] Co de Phone Number [facility] [place] [address] * Magnesium (06/06/2022 8:16 PM CDT) [facility] Magnesium 2.1 1.4 - 2.5 mg/dL [facility] Blood 06/06/2022 8:16 PM CDT 06/06/2022 8:41 PM CDT Conrad Weston Chi, MD LAB BLOOD ORDERABLES Ann Marie l Result Performing Organization Address [facility] Co de Phone Number [facility] [place], [place] [id number] * (ABNORMAL) CBC with auto differential (06/06/2022 8:16 PM CDT) [facility] WBC 11.6(H) 3.8 - 9.9 K/cumm [facility] Hgb 9.3(L) 13.0 - 17.5 g/dL [facility] Hct 26.4(L) 38.9 - 50.3 % [facility] Plt 207 150 - 400 K/cumm [facility] MPV 11.1 9.1 - 12.3 fL [facility] RBC 2.99(L) 4.30 - 5.80 M/cumm [facility] MCV 88.3 81.3 - 96.4 fL [facility] MCH 31.1 27.1 - 33.3 pg [facility] MCHC 35.2 32.3 - 35.7 g/dL [facility] RDW CV 13.1 11.1 - 14.9 % [facility] RDW SD 42.2 35.7 - 48.1 fL [facility] NRBC abs 0.00 0.00 - 0.01 K/cumm [facility] Blood 06/06/2022 8:16 PM CDT 06/06/2022 8:41 PM CDT Conrad Weston Chi, MD LAB BLOOD ORDERABLES Ann Marie l Result [facility] [place] [address] * (ABNORMAL) Comprehensive metabolic panel (06/06/2022 8:16 PM CDT) Pathologist [facility] Sodium 132(L) 135 - 145 mmol/L [facility] Potassium, pl 3.4 3.3 - 4.9 mmol/L [facility] Chloride 89(L) 97 - 110 mmol/L [facility] CO2 25 22 - 32 mmol/L [facility] Anion gap 18(H) 2 - 15 mmol/L [facility] BUN 82(H) 8 - 25 mg/dL [facility] Creatinine 10.45(H) 0.80 - 1.30 mg/dL [facility] Glucose 112 70 - 199 mg/dL [facility] Comment: Interpretive Data Fasting glucose >/= [...] 2017. Calcium 7.5(L) 8.5 - 10.3 mg/dL [facility] Bilirubin, total 0.7 0.1 - 1.2 mg/dL [facility] Protein, pl 6.5 6.5 - 8.5 g/dL [facility] Albumin 3.2(L) 3.5 - 5.0 g/dL [facility] Alk phos 135(H) 40 - 130 Units/L [facility] ALT 40 7 - 55 Units/L [facility] AST 45 10 - 50 Units/L [facility] Blood 06/06/2022 8:16 PM CDT 06/06/2022 8:41 PM CDT Result [facility] Conrad Weston Chi, MD LAB BLOOD ORDERABLES Ann Marie l Result Performing Organization Address City/[facility]/ZIP Co de Phone Number [facility] Department [place] [address] * POCT glucose (06/06/2022 5:53 PM CDT) Glucose, POC 99 70 - 199 mg/dL [facility] Blood 06/06/2022 5:53 PM CDT 06/06/2022 5:53 PM CDT Result [facility] Conrad Weston Chi, MD LAB POCT ORDERABLES - DEV ICE Final Result [facility] [place] [address] * POCT glucose (06/06/2022 11:38 AM CDT) Glucose, POC 108 70 - 199 mg/dL [facility] Blood 06/06/2022 11:3 8 AM CDT 06/06/2022 11:38 AM CDT Conrad Weston Chi, MD LAB POCT ORDERABLES - DEV ICE Final Result Performing Organization Address [facility] Co de Phone Number [facility] [place] [address] * (ABNORMAL) aPTT (06/06/2022 10:26 AM CDT) aPTT 71(H) 27 - 37 sec [facility] Comment: Interpretive Data Therapeutic heparin range: 60.0 - 94.0 seconds. Based on correlation with therapeutic heparin activity range of 0.3-0.7 Units/mL. Current interpretive data was last revised on 2020. Blood 06/06/2022 10:2 6 AM CDT 06/06/2022 10:37 AM CDT Narrative [facility] - 06/06/2022 11:02 AM CDT Draw [...] Ann Marie l Result Performing Organization Address [facility] de Phone Number [facility] [place] [address] * POCT glucose (06/06/2022 8:06 AM CDT) Glucose, POC 109 70 - 199 mg/dL [facility] Blood 06/06/2022 8:06 AM CDT 06/06/2022 8:06 AM CDT Conrad Weston Chi, MD LAB POCT ORDERABLES - DEV ICE Final Result Performing Organization Address [facility] Co de Phone Number [facility] [place] [address] * XR Chest 1 View (06/06/2022 4:45 [...] Glucose, POC 164 70 - 199 mg/dL [facility] Blood 06/06/2022 3:49 AM CDT 06/06/2022 3:49 AM CDT Conrad Weston Chi, MD LAB POCT ORDERABLES - DEV ICE Final Result Performing Organization Address [facility] Co de Phone Number [facility] Department [place] [address] * (ABNORMAL) aPTT (06/06/2022 3:41 AM CDT) aPTT 65(H) 27 - 37 sec [facility] Comment: Interpretive Data Therapeutic heparin range: 60.0 - 94.0 seconds. Based on correlation with therapeutic heparin activity range of 0.3-0.7 Units/mL. Current interpretive data was last revised on 2020. Blood 06/06/2022 3:41 AM CDT 06/06/2022 4:23 AM CDT Narrative [facility] - 06/06/2022 4:32 AM CDT Draw [...] Ann Marie l Result Performing Organization Address [facility] Co de Phone Number [facility] Department [place] [address] * (ABNORMAL) Blood gas, arterial (06/06/2022 1:14 AM CDT) pH, Art 7.39 7.35 - 7.45 [facility] PCO2, Arterial 37 35 - 45 mmHg [facility] PO2, Arterial 169(H) 83 - 108 mmHg [facility] HCO3 Art (Calculated) 23 20 - 30 mmol/L [facility] BE, art -2 mmol/L [facility] Comment: Interpretive Data No Reference Range Established Current Interpretive Data was last revised on 2017 O2 Sat Art (Measured) 99(H) 90 - 95 % [facility] Blood 06/06/2022 1:14 AM CDT 06/06/2022 1:29 AM CDT Conrad Weston Chi, MD LAB BLOOD ORDERABLES Ann Marie l Result Performing Organization Address [facility] Co de Phone Number [facility] [place] [address] * POCT glucose (06/06/2022 12:01 AM CDT) Glucose, POC 192 70 - 199 mg/dL [facility] Blood 06/06/2022 12:0 1 AM CDT 06/06/2022 12:01 AM CDT Conrad Weston Chi, MD LAB POCT ORDERABLES - DEV ICE Final Result Performing Organization Address [facility] de Phone Number [facility] Department [place] [address] * XR Abdomen Ap 1 Vw (06/05/2022 11:30 PM CDT) Anatomical Region Laterality Modality Body, Abdomen N/A Computed Radiogr aphy 06/06/2022 9:30 AM CDT Impressions 06/06/2022 11:54 AM CDT A single view of the abdomen is submitted for evaluation. The pelvis is excluded from the [id number] and unavailable for interpretation. ??A rounded density [...] evaluation. The pelvis is excluded from the [id number] and unavailable for interpretation. A rounded density [...] * POCT glucose (06/05/2022 9:13 PM CDT) [facility] Glucose, POC 195 70 - 199 mg/dL [facility] Blood 06/05/2022 9:13 PM CDT 06/05/2022 9:13 PM CDT Conrad Weston Chi, MD LAB POCT ORDERABLES - DEV ICE Final Result [facility] [place] [address] * (ABNORMAL) eGFR (06/05/2022 8:47 PM CDT) [facility] eGFR 6(L) 90 - 130 mL/min/1. 73 m2 [facility] Comment: Interpretive Data Reference Interval Normal [...] MD PhD LAB BLOOD ORDERABLES Final Result [facility] [place] [address] * (ABNORMAL) Urinalysis, microscopic only (06/05/2022 8:47 PM CDT) WBC, ur 6-10(A) 0 - 5 /HPF [facility] RBC, ur >50(A) 0 - 2 /HPF [facility] Epithelial cells, squamous, ur 1-5 0 - 5 /HPF [facility] Epithelial cells, transitional, ur 1-5 0 - 0 /HPF [facility] Bacteria, ur 2+(A) [facility] Mucous, ur Present(A) [facility] Hyaline casts, ur 11-20(A) 0 - 10 /LPF [facility] Culture Reflex Comment Reflex conditions for urine culture (WBC >10) not met. [facility] Urine 06/05/2022 8:47 PM CDT 06/05/2022 9:32 PM CDT us Conrad Weston Chi, MD LAB URINE ORDERABLES Ann Marie kramer Result [facility] [place] [address] * (ABNORMAL) Differential, auto (06/05/2022 8:47 PM CDT) Neutrophil abs 7.7(H) 1.7 - 6.5 K/cumm [facility] Imm gran abs 0.1 0.0 - 0.1 K/cumm [facility] Lymphocyte abs 0.5(L) 0.8 - 3.3 K/cumm [facility] Monocyte abs 0.7 0.2 - 0.8 K/cumm [facility] Eosinophil abs 0.0 0.0 - 0.5 K/cumm [facility] Basophil abs 0.0 0.0 - 0.1 K/cumm [facility] Neutrophil pct 85.3 % [facility] Comment: Interpretive Data Percent cell count reference ranges are not reported, since discordance with absolute values may lead to misinterpretation of CBC data. Current Interpretive Data was last revised on 2017. Imm gran pct 1.3 % [facility] Comment: Interpretive Data Percent cell count reference ranges are not reported, since discordance with absolute values may lead to misinterpretation of CBC data. Current Interpretive Data was last revised on 2017. Lymphocyte pct 5.8 % [facility] Comment: Interpretive Data Percent cell count reference ranges are not reported, since discordance with absolute values may lead to misinterpretation of CBC data. Current Interpretive Data was last revised on 2017. Monocyte pct 7.5 % [facility] Comment: Interpretive Data Percent cell count reference ranges are not reported, since discordance with absolute values may lead to misinterpretation of CBC data. Current Interpretive Data was last revised on 2017. Eosinophil pct 0.0 % [facility] Comment: Interpretive Data Percent cell count reference ranges are not reported, since discordance with absolute values may lead to misinterpretation of CBC data. Current Interpretive Data was last revised on 2017. Basophil pct 0.1 % [facility] Comment: Interpretive Data Percent cell count reference ranges are not reported, since discordance with absolute values may lead to misinterpretation of CBC data. Current Interpretive Data was last revised on 2017. Blood 06/05/2022 8:47 PM CDT 06/05/2022 9:45 PM CDT Champ Osborne MD PhD LAB BLOOD ORDERABLES Final Result Performing Organization Address [facility] Co de Phone Number [facility] Department [place] [address] * (ABNORMAL) Blood gas, arterial (06/05/2022 8:47 PM CDT) Pathologist [facility] pH, Art 7.38 7.35 - 7.45 [facility] PCO2, Arterial 37 35 - 45 mmHg [facility] PO2, Arterial 76(L) 83 - 108 mmHg [facility] HCO3 Art (Calculated) 22 20 - 30 mmol/L [facility] BE, art -3 mmol/L [facility] Comment: Interpretive Data No Reference Range Established Current Interpretive Data was last revised on 2017 O2 Sat Art (Measured) 94 90 - 95 % [facility] Blood 06/05/2022 8:47 PM CDT 06/05/2022 9:32 PM CDT Result [facility] Conrad Weston Chi, MD LAB BLOOD ORDERABLES Ann Marie l Result Performing Organization Address [facility] Co de Phone Number [facility] Department [place] [address] * (ABNORMAL) Troponin I high-sensitivity (06/05/2022 8:47 PM CDT) Pathologist [facility] Trop I hs 3,996(C) <=35 ng/L [facility] Comment: Previous critical value noted within 48 hours ago. Interpretive Data For further hscTnI resources including the diagnostic algorithm and an aid in interpretation, copy and paste this link: [email or web address]/[email or web address] Current Interpretive Data last revised 2020. Blood 06/05/2022 8:47 PM CDT 06/05/2022 9:47 PM CDT Conrad Weston Chi, MD LAB BLOOD ORDERABLES Ann Marie l Result Performing Organization Address [facility]/ZIP Co de Phone Number [facility] [place] [address] * (ABNORMAL) Urinalysis reflex to microscopic and culture Urine (06/05/2022 8:47 PM CDT) Color, ur Yellow Yellow [facility] Clarity, ur Cloudy(A) Clear [facility] Specific gravity, ur 1.037(H) 1.003 - 1.030 [facility] pH, urine 6.0 [facility] Protein, ur ql 3+(A) Negative [facility] Glucose, ur ql 3+(A) Negative [facility] Ketones, ur Negative Negative [facility] Bilirubin, ur Negative Negative [facility] Blood, ur 3+(A) Negative [facility] Urobilinogen, ur <2.0 <2.0 mg/dL [facility] Nitrite, ur Negative Negative [facility] Leukocyte esterase, ur Negative Negative [facility] UA reflex comment Reflex to microscopic UA will be performed. [facility] Urine 06/05/2022 8:47 PM CDT 06/05/2022 [...] tendency for uric acid stone formation. Source: [employer]. Last revised 08-31-2017 Conrad Weston Chi, MD LAB MICROBIOLOGY - GENERA L ORDERABLES Final Result Performing Organization Address [facility]/ZIP Co de Phone Number [facility] [place] [address] * (ABNORMAL) Phosphorus (06/05/2022 8:47 PM CDT) [facility] Phosphorus, pl 6.5(H) 2.3 - 4.5 mg/dL [facility] Blood 06/05/2022 8:47 PM CDT 06/05/2022 9:46 PM CDT Conrad Weston Chi, MD LAB BLOOD ORDERABLES Ann Marie l Result Performing Organization Address City/[facility]/ZIP Co de Phone Number [facility] Department [place] [address] * Magnesium (06/05/2022 8:47 PM CDT) [facility] Magnesium 1.9 1.4 - 2.5 mg/dL [facility] Blood 06/05/2022 8:47 PM CDT 06/05/2022 9:46 PM CDT Conrad Weston Chi, MD LAB BLOOD ORDERABLES Ann Marie l Result Performing Organization Address City/[facility]/ZIP Co de Phone Number [facility] [place] [address] * (ABNORMAL) CBC with auto differential (06/05/2022 8:47 PM CDT) [facility] WBC 9.1 3.8 - 9.9 K/cumm [facility] Hgb 9.3(L) 13.0 - 17.5 g/dL [facility] Hct 26.0(L) 38.9 - 50.3 % [facility] Plt 201 150 - 400 K/cumm [facility] MPV 11.3 9.1 - 12.3 fL [facility] RBC 2.95(L) 4.30 - 5.80 M/cumm [facility] MCV 88.1 81.3 - 96.4 fL [facility] MCH 31.5 27.1 - 33.3 pg [facility] MCHC 35.8(H) 32.3 - 35.7 g/dL [facility] RDW CV 12.6 11.1 - 14.9 % [facility] RDW SD 40.7 35.7 - 48.1 fL [facility] NRBC abs 0.00 0.00 - 0.01 K/cumm [facility] Blood 06/05/2022 8:47 PM CDT 06/05/2022 9:45 PM CDT us Conrad Weston Chi, MD LAB BLOOD ORDERABLES Ann Marie kramer Result [facility] [place] [address] * (ABNORMAL) Comprehensive metabolic panel (06/05/2022 8:47 PM CDT) Sodium 132(L) 135 - 145 mmol/L [facility] Potassium, pl 3.6 3.3 - 4.9 mmol/L [facility] Chloride 90(L) 97 - 110 mmol/L [facility] CO2 25 22 - 32 mmol/L [facility] Anion gap 17(H) 2 - 15 mmol/L [facility] BUN 84(H) 8 - 25 mg/dL [facility] Creatinine 9.77(H) 0.80 - 1.30 mg/dL [facility] Glucose 180 70 - 199 mg/dL [facility] Comment: Interpretive Data Fasting glucose >/= [...] 2017. Calcium 7.8(L) 8.5 - 10.3 mg/dL [facility] Bilirubin, total 0.6 0.1 - 1.2 mg/dL [facility] Protein, pl 6.3(L) 6.5 - 8.5 g/dL [facility] Albumin 3.4(L) 3.5 - 5.0 g/dL [facility] Alk phos 126 40 - 130 Units/L [facility] ALT 43 7 - 55 Units/L [facility] AST 46 10 - 50 Units/L [facility] Blood 06/05/2022 8:47 PM CDT 06/05/2022 9:46 PM CDT Conrad Weston Chi, MD LAB BLOOD ORDERABLES Ann Marie l Result Performing Organization Address [facility] de Phone Number [facility] Department [place] [address] * Cell Differential, Body Fluid (06/05/2022 8:36 PM CDT) Total cells diffed 100 cells [facility] Comment: Interpretive Data Unless otherwise specified, the reference range and other method performance specifications have not been established for CSF/Body Fluid tests. ??The test results should be integrated into the clinical context for interpretation. Current interpretive data was last revised on 2019. Neutrophils, fld 4 % [facility] Lymphs, fld 9 % [facility] Monocyte, fld 68 % [facility] Macrophages, fld 18 % [facility] Mesothelial cells, fld 1 % [facility] Fluid 06/05/2022 8:36 PM CDT 06/05/2022 9:01 PM CDT Conrad Weston Chi, MD LAB BODY FLUIDS AND STOOL S ORDERABLES Final Result Performing Organization Address [facility] Co de Phone Number [facility] Department [place] [address] * Aerobic and anaerobic culture and gram stain Peritoneal dialysis fluid Abdominal (06/05/2022 8:36 PM CDT) Direct Specimen Exam Stain: Cytospin Gram stain shows: No polymorphonuclear leukocytes seen. Other cellular material present. No organisms seen. [facility] Report Final Report: No growth [facility] Peritoneal dialysis fluid (Abdominal) 06/05/2022 8:36 PM CDT 06/05/2022 11:56 PM CDT Narrative [facility] - 06/11/2022 1:37 PM CDT Testing performed by [facility] ([phone]) Specimens submitted from normally sterile body sites [...] MICROBIOLOGY - GENERA L ORDERABLES Final Result [facility] [place] [address] * Cell count with reflex to differential, body fluid (06/05/2022 8:36 PM CDT) Specimen type, fld Peritoneal [facility] Color, fld Straw [facility] Clarity, fld Clear Clear [facility] Nucleated cells, fld 11 /cumm [facility] Comment: Interpretive Data Unless otherwise specified, the reference range and other method performance specifications have not been established for CSF/Body Fluid tests. ??The test results should be integrated into the clinical context for interpretation. Current interpretive data was last revised on 2019. RBC, fld 0 /cumm [facility] Fluid 06/05/2022 8:36 PM CDT 06/05/2022 9:01 PM CDT Conrad Weston Chi, MD LAB BODY FLUIDS AND STOOL S ORDERABLES Final Result Performing Organization Address [facility] Co de Phone Number [facility] [place] [address] * Lipase (06/05/2022 6:39 PM CDT) Lipase 14 10 - 99 Units/L [facility] Blood 06/05/2022 6:39 PM CDT 06/05/2022 6:53 PM CDT Conrad Weston Chi, MD LAB BLOOD ORDERABLES Ann Marie l Result Performing Organization Address [facility] [place] [address] * (ABNORMAL) aPTT (06/05/2022 6:34 PM CDT) aPTT 38(H) 27 - 37 sec [facility] Comment: Interpretive Data Therapeutic heparin range: 60.0 - 94.0 seconds. Based on correlation with therapeutic heparin activity range of 0.3-0.7 Units/mL. Current interpretive data was last revised on 2020. Blood 06/05/2022 6:34 PM CDT 06/05/2022 6:40 PM CDT Conrad Weston Chi, MD LAB BLOOD ORDERABLES Ann Marie l Result Performing Organization Address [facility] Co de Phone Number [facility] [place] [address] * US RUQ (06/05/2022 6:12 PM CDT) [...] 275(H) 70 - 199 mg/dL [facility] Blood 06/05/2022 5:07 PM CDT 06/05/2022 5:07 PM CDT Conrad Weston Chi, MD LAB POCT ORDERABLES - DEV ICE Final Result [facility] [place] [address] * Blood culture Blood Antecubital, left (06/05/2022 5:06 PM CDT) Report Final Report: No growth [facility] Blood (Antecubital, left) 06/05/2022 5:06 PM CDT 06/05/2022 5:21 PM CDT Narrative [facility] - 06/10/2022 7:01 AM CDT From a [...] organism identification may be performed using the Microstimigene Gram-Positive Blood Culture Assay. This assay detects microbial DNA in positive blood culture broth via hybridization of target DNA to capture oligonucleotides on a microarray. This assay has been cleared by the [place] Food and Drug Administration and its performance characteristics have been verified by the [facility]. 5. ?For questions about this culture, contact the Microbiology Laboratory at [phone]. Interpretive data was last revised on 2020. us Conrad Weston Chi, MD LAB MICROBIOLOGY - GENERA L ORDERABLES Final Result [facility] [place] [address] * Blood culture Blood Antecubital, right (06/05/2022 [...] organism identification may be performed using the Microstimigene Gram-Positive Blood Culture Assay. This assay detects microbial DNA in positive blood culture broth via hybridization of target DNA to capture oligonucleotides on a microarray. This assay has been cleared by the [place] Food and Drug Administration and its performance characteristics have been verified by the [facility]. 5. ?For questions about this culture, contact the Microbiology Laboratory at [phone]. Interpretive data was last revised on 2020. Conrad Weston Chi, MD LAB MICROBIOLOGY - GENERA L ORDERABLES Final Result Performing Organization Address City/[facility] Co de Phone Number ALESSANDRA [facility] [place] [address] * (ABNORMAL) Troponin I high-sensitivity (06/05/2022 4:07 PM CDT) [facility] Trop I hs 4,266(C) <=35 ng/L [facility] Comment: Previous critical value noted within 48 hours ago. Interpretive Data For further hscTnI resources including the diagnostic algorithm and an aid in interpretation, copy and paste this link: https://bjhlab.testcatalog.org/show/[email or web address] Current Interpretive Data last revised 2020. Blood 06/05/2022 4:07 PM CDT 06/05/2022 4:27 PM CDT Conrad Weston Chi, MD LAB BLOOD ORDERABLES Ann Marie l Result Performing Organization Address [facility] Co de Phone Number ALESSANDRA [facility] Department [place] [address] * (ABNORMAL) eGFR (06/05/2022 3:54 PM CDT) Pathologist [facility] eGFR 6(L) 90 - 130 mL/min/1. [...] LAB BLOOD ORDERABLES Final Result [facility] [place] [address] * (ABNORMAL) Differential, auto (06/05/2022 3:54 PM CDT) [facility] Neutrophil abs 9.2(H) 1.7 - 6.5 K/cumm [facility] Imm gran abs 0.1 0.0 - 0.1 K/cumm [facility] Lymphocyte abs 0.6(L) 0.8 - 3.3 K/cumm [facility] Monocyte abs 0.8 0.2 - 0.8 K/cumm [facility] Eosinophil abs 0.0 0.0 - 0.5 K/cumm [facility] Basophil abs 0.0 0.0 - 0.1 K/cumm [facility] Neutrophil pct 86.0 % [facility] Comment: Interpretive Data Percent cell count reference ranges are not reported, since discordance with absolute values may lead to misinterpretation of CBC data. Current Interpretive Data was last revised on 2017. Imm gran pct 0.8 % [facility] Comment: Interpretive Data Percent cell count reference ranges are not reported, since discordance with absolute values may lead to misinterpretation of CBC data. Current Interpretive Data was last revised on 2017. Lymphocyte pct 5.6 % [facility] Comment: Interpretive Data Percent cell count reference ranges are not reported, since discordance with absolute values may lead to misinterpretation of CBC data. Current Interpretive Data was last revised on 2017. Monocyte pct 7.4 % [facility] Comment: Interpretive Data Percent cell count reference ranges are not reported, since discordance with absolute values may lead to misinterpretation of CBC data. Current Interpretive Data was last revised on 2017. Eosinophil pct 0.1 % [facility] Comment: Interpretive Data Percent cell count reference ranges are not reported, since discordance with absolute values may lead to misinterpretation of CBC data. Current Interpretive Data was last revised on 2017. Basophil pct 0.1 % [facility] Comment: Interpretive Data Percent cell count reference ranges are not reported, since discordance with absolute values may lead to misinterpretation of CBC data. Current Interpretive Data was last revised on 2017. Blood 06/05/2022 3:54 PM CDT 06/05/2022 4:27 PM CDT Champ Osborne MD PhD LAB BLOOD ORDERABLES Final Result Performing Organization Address City/State/[facility] Co de Phone Number [facility] [place] [address] * Type and screen (06/05/2022 3:54 PM CDT) ABO Rh A Positive [facility] Maribel, indirect Negative [facility] Blood 06/05/2022 3:54 PM CDT 06/05/2022 4:18 PM CDT Narrative [facility] - 06/05/2022 5:07 PM CDT Has the patient had Daratumumab or Isatuximab in the past 6 months?->Unknown Champ Osborne MD PhD LAB BLOOD BANK TEST ORDERA BLES Final Result Performing Organization Address [facility] [place] [address] * (ABNORMAL) aPTT (06/05/2022 3:54 PM CDT) aPTT 45(H) 27 - 37 sec [facility] Comment: Interpretive Data Therapeutic heparin range: 60.0 - 94.0 seconds. Based on correlation with therapeutic heparin activity range of 0.3-0.7 Units/mL. Current interpretive data was last revised on 2020. Blood (Blood, Venous) 06/05/2022 3:54 PM CDT 06/05/2022 4:16 PM CDT Champ Osborne MD PhD LAB BLOOD ORDERABLES Final Result Performing Organization Address [facility] [place] [address] * Protime-INR (06/05/2022 3:54 PM CDT) PT 10.8 9.2 - 13.5 sec [facility] INR 1.0 0.9 - 1.2 [facility] Comment: Interpretive data Oral anticoagulant therapeutic ranges: Venous thromboembolism prophylaxis or treatment: 2.0-3.0 CARDIOLOGY Standard range: 2.0-3.0 High-intensity range: 2.5-3.5 Refer to indication-specific guidelines for appropriate target ranges for prosthetic heart valve replacement. Current interpretive data was last revised on 2019. Blood (Blood, Venous) 06/05/2022 3:54 PM CDT 06/05/2022 4:16 PM CDT us Champ Osborne MD PhD LAB BLOOD ORDERABLES Final Result [facility] [place] [address] * (ABNORMAL) CBC with auto differential (06/05/2022 3:54 PM CDT) WBC 10.7(H) 3.8 - 9.9 K/cumm [facility] Hgb 10.3(L) 13.0 - 17.5 g/dL [facility] Hct 29.1(L) 38.9 - 50.3 % [facility] Plt 238 150 - 400 K/cumm [facility] MPV 11.1 9.1 - 12.3 fL [facility] RBC 3.32(L) 4.30 - 5.80 M/cumm [facility] MCV 87.7 81.3 - 96.4 fL [facility] MCH 31.0 27.1 - 33.3 pg [facility] MCHC 35.4 32.3 - 35.7 g/dL [facility] RDW CV 12.5 11.1 - 14.9 % [facility] RDW SD 40.3 35.7 - 48.1 fL [facility] NRBC abs 0.00 0.00 - 0.01 K/cumm [facility] Blood 06/05/2022 3:54 PM CDT 06/05/2022 4:27 PM CDT Champ Osborne MD PhD LAB BLOOD ORDERABLES Final Result [facility] [place] [address] * Lactate (06/05/2022 3:54 PM CDT) [facility] Lactate 1.6 0.7 - 2.0 mmol/L [facility] Blood 06/05/2022 3:54 PM CDT 06/05/2022 4:27 PM CDT Champ Osborne MD PhD LAB BLOOD ORDERABLES Final Result Performing Organization Address [facility] de Phone Number [facility] [place] [address] * (ABNORMAL) Basic metabolic panel (06/05/2022 3:54 PM CDT) [facility] Sodium 132(L) 135 - 145 mmol/L [facility] Potassium, pl 4.1 3.3 - 4.9 mmol/L [facility] Chloride 87(L) 97 - 110 mmol/L [facility] CO2 26 22 - 32 mmol/L [facility] Anion gap 19(H) 2 - 15 mmol/L [facility] BUN 81(H) 8 - 25 mg/dL [facility] Creatinine 9.08(H) 0.80 - 1.30 mg/dL [facility] Glucose 276(H) 70 - 199 mg/dL [facility] Comment: Interpretive Data Fasting glucose >/= [...] 2017. Calcium 8.1(L) 8.5 - 10.3 mg/dL [facility] Blood 06/05/2022 3:54 PM CDT 06/05/2022 4:27 PM CDT us Champ Osborne MD PhD LAB BLOOD ORDERABLES Final Result Performing Organization Address [facility] de Phone Number [facility] Department [place] [address] * (ABNORMAL) POCT glucose (06/05/2022 3:46 PM CDT) Glucose, POC 279(H) 70 - 199 mg/dL [facility] Blood 06/05/2022 3:46 PM CDT 06/05/2022 3:46 PM CDT us Conrad Weston Chi, MD LAB POCT ORDERABLES - DEV ICE Final Result Performing Organization Address [facility] de Phone Number [facility] Department [place] [address] * (ABNORMAL) eGFR (06/05/2022 3:22 PM CDT) [facility] eGFR 6(L) 90 - 130 mL/min/1. 73 m2 [facility] Comment: Interpretive Data Reference Interval Normal [...] ORDERABLES Final Result Performing Organization Address City/[facility]/ZIP Co de Phone Number [facility] [email or web address] [address] * (ABNORMAL) POCT [id number], WB - ISTAT (06/05/2022 3:22 PM CDT) Pathologist [facility] Na POC 126(L) 135 - 145 mmol/L [facility] K POC 3.6 3.3 - 4.9 mmol/L [facility] Comment: Interpretive Data This method is not able to assess for hemolysis, which may falsely increase potassium concentrations. If further testing is needed to evaluate this result, consider in-laboratory plasma potassium. Current Interpretive Data was last revised on 2022. Glucose POC i-STAT 287(H) 70 - 199 mg/dL [facility] Hct, POC 30.0(L) 38.9 - 50.3 % [facility] Blood 06/05/2022 3:22 PM CDT 06/05/2022 3:22 PM CDT us Champ Osborne MD PhD LAB POCT ORDERABLES - APRIL CE Final Result Performing Organization Address City/[facility]/ZIP Co de Phone Number [facility] Department [place] [address] * Magnesium (06/05/2022 3:22 PM CDT) Pathologist [facility] Magnesium 2.1 1.4 - 2.5 mg/dL [facility] Blood 06/05/2022 3:22 PM CDT 06/05/2022 3:59 PM CDT Champ Osborne MD PhD LAB BLOOD ORDERABLES Final Result [facility] [place] [address] * (ABNORMAL) Basic metabolic panel (06/05/2022 3:22 PM CDT) [facility] Sodium 127(L) 135 - 145 mmol/L [facility] Potassium, pl 3.9 3.3 - 4.9 mmol/L [facility] Comment:Hemolyzed; Potassium value may be falsely elevated by as much as 0.3-0.5 mmol/L. Suggest redraw and reanalysis. Chloride 88(L) 97 - 110 mmol/L [facility] CO2 19(L) 22 - 32 mmol/L [facility] Anion gap 20(H) 2 - 15 mmol/L [facility] BUN 79(H) 8 - 25 mg/dL [facility] Creatinine 9.13(H) 0.80 - 1.30 mg/dL [facility] Glucose 294(H) 70 - 199 mg/dL [facility] Comment: Interpretive Data Fasting glucose >/= [...] 2017. Calcium 8.2(L) 8.5 - 10.3 mg/dL [facility] Blood 06/05/2022 3:22 PM CDT 06/05/2022 3:59 PM CDT us Champ Osborne MD PhD LAB BLOOD ORDERABLES Final Result Performing Organization Address [facility] Co de Phone Number [facility] [place] [address] * (ABNORMAL) Troponin I high-sensitivity (06/05/2022 3:21 PM CDT) Pathologist [facility] Trop I hs 4,261(C) <=35 ng/L [facility] Comment: Previous critical value noted within 48 hours ago. Interpretive Data For further hscTnI resources including the diagnostic algorithm and an aid in interpretation, copy and paste this link: https://bjhlab.testcatalog.org/show/[email or web address] Current Interpretive Data last revised 2020. Blood 06/05/2022 3:21 PM CDT 06/05/2022 3:59 PM CDT us Champ Osborne MD PhD LAB BLOOD ORDERABLES Final Result Performing Organization Address [facility] Co de Phone Number [facility] [place] [address] * (ABNORMAL) Arterial Blood gas w/Lactate POCT (06/05/2022 3:17 PM CDT) [facility] Lactate POC i-STAT 2.0 0.7 - 2.2 mmol/L [facility] pH POC 7.38 7.35 - 7.45 [facility] pCO2, Art POC 37 35 - 45 mmHg [facility] PO2 POC 53(L) 80 - 105 mmHg [facility] CO2, total POC 23 20 - 30 mmol/L [facility] HCO3, POC 22 21 - 30 mmol/L [facility] BE POC -3(L) -2 - 3 mmol/L [facility] O2 sat POC 86(L) 95 - 98 % [facility] Blood 06/05/2022 3:17 PM CDT 06/05/2022 3:17 PM CDT us Champ Osborne MD PhD LAB BLOOD ORDERABLES Final Result [facility] [place] [address] * XR Chest 1 View (06/05/2022 3:15 [...] BPM [facility] Atrial Rate 73 BPM [facility] TX-Interval (MSEC) 184 ms [facility] QRS-Interval (MSEC) 106 ms [facility] QT-Interval (MSEC) 442 ms [facility] QTc 486 ms [facility] P Esopus 49 degrees [facility] R Esopus -33 degrees [facility] T Esopus 87 degrees [facility] Diagnosis Normal sinus rhythm Left axis deviation QS in V1 and V2, a nonspecific finding with multiple causes, including lead misplacement or septal infarction in 20% Abnormal ECG Confirmed by JESS BUSTOS M.D ([id number]) on 06/07/2022 8:30:06 AM [facility] 06/05/2022 2:52 PM CDT 06/07/2022 8:30 AM CDT Champ Osborne MD PhD ECG ORDERABLES Final Resu lt Performing Organization Address City/[facility]/ZIP Co de Phone Number [facility] * (ABNORMAL) POCT glucose (06/05/2022 2:22 PM CDT) [facility] Glucose, POC 389(H) 70 - 199 mg/dL [facility] Blood 06/05/2022 2:22 PM CDT 06/05/2022 2:22 PM CDT Champ Osborne MD PhD LAB POCT ORDERABLES - APRIL CE Final Result Performing Organization Address [facility] Co de Phone Number [facility] [place] [address] * Respiratory pathogen panel Nasopharyngeal (06/05/2022 1:05 PM CDT) [facility] Influenza A RNA Not Detected Not Detected [facility] Influenza B RNA Not Detected Not Detected [facility] RSV RNA Not Detected Not Detected [facility] COVID-19 RNA Not Detected Not Detected [facility] Coronavirus 229E RNA Not Detected Not Detected [facility] Coronavirus HKU1 RNA Not Detected Not Detected [facility] Coronavirus NL63 RNA Not Detected Not Detected [facility] Coronavirus OC43 RNA Not Detected Not Detected [facility] Adenovirus DNA Not Detected Not Detected [facility] Metapneumovirus RNA Not Detected Not Detected [facility] Rhinovirus/Enterov irus RNA Not Detected Not Detected [facility] Parainfluenza 1 RNA Not Detected Not Detected [facility] Parainfluenza 2 RNA Not Detected Not Detected [facility] Parainfluenza 3 RNA Not Detected Not Detected [facility] Parainfluenza 4 RNA Not Detected Not Detected [facility] B. pertussis DNA Not Detected Not Detected [facility] B. parapertussis DNA Not Detected Not Detected [facility] C. pneumoniae DNA Not Detected Not Detected [facility] M. pneumoniae DNA Not Detected Not Detected [facility] Nasopharyngeal 06/05/2022 1: 05 PM CDT 06/05/2022 1:32 PM CDT Narrative [facility] - 06/05/2022 2:40 PM CDT Is the Patient experiencing symptoms consistent with COVID?->No Reason for testing?->Symptomatic Surveillance testing for transplant patient?->No ??Interpretive Data The Onfan FilmArray Respiratory Panel (RP2.1) assay is a [...] assay has FDA clearance for testing of APPLIANCE COUNSELOR swabs. ??The performance of additional specimen types has been assessed by the performing laboratory. ??The performance characteristics of this assay have been determined by [facility]. Current interpretive data was last revised on 22. Champ Osborne MD PhD LAB MICROBIOLOGY - GENERAL ORDERABLES Final Result Performing Organization Address City/[facility]/ZIP Co de Phone Number [facility] Department [place] [address] * Lactate (06/05/2022 12:10 PM CDT) Lactate 2.0 0.7 - 2.0 mmol/L [facility] Blood 06/05/2022 12:1 0 PM CDT 06/05/2022 12:39 PM CDT Champ Osborne MD PhD LAB BLOOD ORDERABLES Final Result [facility] [place] [address] * Beta-hydroxybutyrate (06/05/2022 12:10 PM CDT) Beta-Hydroxybut yrate <0.1 0.0 - 0.5 mmol/L [facility] Blood 06/05/2022 12:1 0 PM CDT 06/05/2022 12:34 PM CDT Champ Osborne MD PhD LAB BLOOD ORDERABLES Final Result Performing Organization Address [facility] Co de Phone Number [facility] [place] [address] * (ABNORMAL) POCT glucose (06/05/2022 11:23 AM CDT) Glucose, POC 402(H) 70 - 199 mg/dL [facility] Glucose comment 1 Glu2: RN/MD Notified [facility] Blood 06/05/2022 11:2 3 AM CDT 06/05/2022 11:23 AM CDT Champ Osborne MD PhD LAB POCT ORDERABLES - APRIL CE Final Result Performing Organization Address [facility] [place] [address] * aPTT (06/05/2022 11:04 AM CDT) aPTT 29 27 - 37 sec [facility] Comment: Interpretive Data Therapeutic heparin range: 60.0 - 94.0 seconds. Based on correlation with therapeutic heparin activity range of 0.3-0.7 Units/mL. Current interpretive data was last revised on 2020. Blood 06/05/2022 11:0 4 AM CDT 06/05/2022 12:39 PM CDT Champ Osborne MD PhD LAB BLOOD ORDERABLES Final Result Performing Organization Address City/[facility] Co de Phone Number [facility] [place] [address] * (ABNORMAL) POCT glucose (06/05/2022 10:07 AM CDT) Glucose, POC 403(H) 70 - 199 mg/dL [facility] Blood 06/05/2022 10:0 7 AM CDT 06/05/2022 10:07 AM CDT Champ Osborne MD PhD LAB POCT ORDERABLES - APRIL CE Final Result Performing Organization Address [facility] Co de Phone Number [facility] [place] [address] * (ABNORMAL) POCT glucose (06/05/2022 8:47 AM CDT) Glucose, POC 398(H) 70 - 199 mg/dL [facility] Blood 06/05/2022 8:47 AM CDT 06/05/2022 8:47 AM CDT Champ Osborne MD PhD LAB POCT ORDERABLES - APRIL CE Final Result Performing Organization Address [facility] Co de Phone Number [facility] [place] [address] * (ABNORMAL) POCT glucose (06/05/2022 8:45 AM CDT) Glucose, POC 458(C) 70 - 199 mg/dL [facility] Glucose comment 1 Glu2: RN/MD Notified [facility] Blood 06/05/2022 8:45 AM CDT 06/05/2022 8:45 AM CDT Champ Osborne MD PhD LAB POCT ORDERABLES - APRIL CE Final Result Performing Organization Address [facility] [place] [address] * (ABNORMAL) POCT glucose (06/05/2022 6:33 AM CDT) Glucose, POC 373(H) 70 - 199 mg/dL [facility] Blood 06/05/2022 6:33 AM CDT 06/05/2022 6:33 AM CDT us Champ Osborne MD PhD LAB POCT ORDERABLES - APRIL CE Final Result Performing Organization Address [facility] Co de Phone Number [facility] [place] [address] * IR Outside Reference (06/05/2022 5:59 AM CDT) Impressions [email or web address] - 06/05/2022 5:59 AM CDT These images are for Reference purposes only and have not been reviewed by [facility]. ??There will be no report generated by a [facility] Radiologist. Narrative [email or web address] - 06/05/2022 5:59 AM CDT EXAMINATION: ??Images For Reference Purposes Only us Carrington Weber MD IMG IR PROCEDURES Final Result Performing Organization Address [facility] de Phone Number [email or web address] * XR Outside Reference (06/05/2022 5:57 AM CDT) Impressions [email or web address] - 06/05/2022 5:57 AM CDT These images are for Reference purposes only and have not been reviewed by [facility]. ??There will be no report generated by a [facility] Radiologist. Narrative [email or web address] - 06/05/2022 5:57 AM CDT EXAMINATION: ??Images For Reference Purposes Only us Carrington Weber MD IMG XR PROCEDURES Final Result Performing Organization Address [facility] Co de Phone Number [email or web address] * US Outside Reference (06/05/2022 5:56 AM CDT) Impressions [email or web address] - 06/05/2022 5:56 AM CDT These images are for Reference purposes only and have not been reviewed by [facility]. ??There will be no report generated by a [facility] Radiologist. Narrative [email or web address] - 06/05/2022 5:56 AM CDT EXAMINATION: ??Images For Reference Purposes Only Carrington Weber MD IMG US PROCEDURES Final Result Performing Organization Address City/[facility] Co de Phone Number [email or web address] * CT Body Outside Reference (06/05/2022 5:54 AM CDT) Impressions [email or web address] - 06/05/2022 5:54 AM CDT These images are for Reference purposes only and have not been reviewed by [facility]. ??There will be no report generated by a [facility] Radiologist. Narrative [facility] - 06/05/2022 5:54 AM CDT EXAMINATION: ??Images For Reference Purposes Only Carrington Weber MD IMG CT PROCEDURES Final Result Performing Organization Address [facility] de Phone Number [email or web address] * (ABNORMAL) Troponin I high-sensitivity 2-hour (06/05/2022 4:27 AM CDT) Trop I hs 4,555(C) <=35 ng/L [facility] Comment: Previous critical value noted within 48 hours ago. Interpretive Data For further hscTnI resources including the diagnostic algorithm and an aid in interpretation, copy and paste this link: https://bjhlab.testcatalog.org/show/hsTrop-1 Current Interpretive Data last revised 2020. Trop I hs pct delta -1 % [facility] Trop I hs interp Insignificant [facility] Blood 06/05/2022 4:2 7 AM CDT 06/05/2022 5:21 AM CDT Champ Osborne MD PhD LAB BLOOD ORDERABLES Final Result Performing Organization Address [facility] de Phone Number [facility] [place] [address] * (ABNORMAL) aPTT (06/05/2022 4:27 AM CDT) aPTT 23(L) 27 - 37 sec [facility] Comment: Interpretive Data Therapeutic heparin range: 60.0 - 94.0 seconds. Based on correlation with therapeutic heparin activity range of 0.3-0.7 Units/mL. Current interpretive data was last revised on 2020. Blood 06/05/2022 4:27 AM CDT 06/05/2022 5:50 AM CDT Narrative [facility] - 06/05/2022 6:00 AM CDT Baseline prior to heparin initiation Champ Osborne MD PhD LAB BLOOD ORDERABLES Final Result Performing Organization Address City/[facility] Co de Phone Number [facility] [place] [place] [address] * Protime-INR (06/05/2022 4:27 AM CDT) [facility] PT 10.1 9.2 - 13.5 sec [facility] INR 0.9 0.9 - 1.2 [facility] Comment: Interpretive data Oral anticoagulant therapeutic ranges: Venous thromboembolism prophylaxis or treatment: 2.0-3.0 CARDIOLOGY Standard range: 2.0-3.0 High-intensity range: 2.5-3.5 Refer to indication-specific guidelines for appropriate target ranges for prosthetic heart valve replacement. Current interpretive data was last revised on 2019. Blood 06/05/2022 4:27 AM CDT 06/05/2022 5:50 AM CDT [facility] - 06/05/2022 6:00 AM CDT Baseline prior to heparin initiation Champ Osborne MD PhD LAB BLOOD ORDERABLES Final Result Performing Organization Address [facility] Co de Phone Number [facility] [email or web address] [address] * (ABNORMAL) Troponin I high-sensitivity series (baseline, 2hr, 4hr, 6hr) (06/05/2022 2:37 AM CDT) Pathologist [facility] Trop I hs 4,614(C) <=35 ng/L [facility] Comment: Previous critical value noted within 48 hours ago. Interpretive Data For further [facility] resources including the diagnostic algorithm and an aid in interpretation, copy and paste this link: https://bjhlab.testcatalog.org/show/hsTrop-[email or web address] Current Interpretive Data last revised 2020. Blood 06/05/2022 2:37 AM CDT 06/05/2022 3:30 AM CDT Champ Osborne MD PhD LAB BLOOD ORDERABLES Final Result Performing Organization Address City/[facility]/ZIP Co de Phone Number [facility] [place] [address] * POCT glucose (06/04/2022 11:04 PM CDT) [facility] Glucose, POC 191 70 - 199 mg/dL [facility] Blood 06/04/2022 11:0 4 PM CDT 06/04/2022 11:04 PM CDT us Champ Osborne MD PhD LAB POCT ORDERABLES - APRIL CE Final Result Performing Organization Address City/[facility]/ZIP Co de Phone Number [facility] [place] [address] * ECG 12 lead (06/04/2022 10:59 PM CDT) [facility] Ventricular Rate EKG/Min 47 BPM [facility] Atrial Rate 47 BPM [facility] TX-Interval (MSEC) 228 ms [facility] QRS-Interval (MSEC) 116 ms [facility] QT-Interval (MSEC) 532 ms [facility] QTc 470 ms [facility] P Esopus 39 degrees [facility] R Esopus -33 degrees [facility] T Esopus 105 degrees [facility] Diagnosis Sinus bradycardia with 1st degree A-V block Left axis deviation Incomplete left bundle branch block Nonspecific ST and T wave abnormality Long QTc When compared with ECG of 23-MAR-2017 00:14, [place] interval has increased QTc has increased Rate has decreased by 15 bpm Incomplete left bundle branch block is now Present Criteria for Septal infarct are not Present Confirmed by KENN BILLINGSLEY M.D ([id number]) on 06/06/2022 9:57:10 PM [facility] 06/04/2022 10:5 9 PM CDT 06/06/2022 9:57 PM CDT Catherine Adams MD ECG ORDERABLES Final Resul t Performing Organization Address City/[facility]/ZIP Co de Phone Number [facility] * (ABNORMAL) Hemoglobin A1c (06/04/2022 10:52 PM CDT) Hgb A1C 7.8(H) 4.0 - 5.6 % [facility] Estimated Average Glucose 177 mg/dL [facility] Comment: The ADA recommends reporting an estimated Average Glucose (eAG) with all Hemoglobin A1c results using the equation derived from a study of 507 normal and diabetic adults. ??Minority populations were underrepresented and children were not included. ?? (Diabetes Care 2020; 43(S1): S66-S76). ??The eAG is not equivalent to a fasting glucose. Blood 06/04/2022 10:5 2 PM CDT 06/05/2022 Result [facility] Champ Osborne MD PhD LAB BLOOD ORDERABLES Final Result Performing Organization Address City/[facility] Co de Phone Number [facility] [place] [address] * Beta-hydroxybutyrate (06/04/2022 10:52 PM CDT) Pathologist [facility] Beta-Hydroxybut yrate <0.1 0.0 - 0.5 mmol/L [facility] Blood 06/04/2022 10:5 2 PM CDT 06/05/2022 Champ Osborne MD PhD LAB BLOOD ORDERABLES Final Result [facility] [place] [address] * (ABNORMAL) Lipid panel (06/04/2022 10:52 PM [...] revised on 2018. HDL 34(L) >=40 mg/dL [facility] Comment: Interpretive Data Ages < [...] on 2018. LDL, calculated 82 <=129 mg/dL [facility] Comment: Interpretive Data Ages < [...] 2018. Non-HDL Cholesterol 115 mg/dL [facility] Comment: Interpretive Data Ages < or = [...] last revised on 2018. Chol/HDL ratio 4 [facility] Blood 06/04/2022 10:5 2 PM CDT 06/04/2022 11:56 PM CDT Champ Osborne MD PhD LAB BLOOD ORDERABLES Final Result Performing Organization Address [facility] Co de Phone Number [facility] [place] [address] * Critical result callback Cardio chemistry (06/04/2022 10:52 PM CDT) Date Notified [id number] [facility] Time Notified 99 [facility] Test name Trop [facility] Called/Read Back Denisse Connelly RN [facility] Credentials RN [facility] Called By dm [facility] Blood 06/04/2022 10:5 2 PM CDT 06/04/2022 11:56 PM CDT Catherine Adams MD LAB BLOOD ORDERABLES Final Result Performing Organization Address [facility] Co de Phone Number [facility] Department [place] [address] * (ABNORMAL) eGFR (06/04/2022 10:52 PM CDT) eGFR 6(L) 90 - 130 mL/min/1. 73 m2 [facility] Comment: Interpretive Data Reference Interval Normal [...] Adams MD LAB BLOOD ORDERABLES Final Result [facility] [place] [address] * Differential, auto (06/04/2022 10:52 PM CDT) Neutrophil abs 6.1 1.7 - 6.5 K/cumm [facility] Imm gran abs 0.1 0.0 - 0.1 K/cumm [facility] Lymphocyte abs 0.8 0.8 - 3.3 K/cumm [facility] Monocyte abs 0.8 0.2 - 0.8 K/cumm [facility] Eosinophil abs 0.0 0.0 - 0.5 K/cumm [facility] Basophil abs 0.0 0.0 - 0.1 K/cumm [facility] Neutrophil pct 79.1 % [facility] Comment: Interpretive Data Percent cell count reference ranges are not reported, since discordance with absolute values may lead to misinterpretation of CBC data. Current Interpretive Data was last revised on 2017. Imm gran pct 0.6 % [facility] Comment: Interpretive Data Percent cell count reference ranges are not reported, since discordance with absolute values may lead to misinterpretation of CBC data. Current Interpretive Data was last revised on 2017. Lymphocyte pct 10.1 % [facility] Comment: Interpretive Data Percent cell count reference ranges are not reported, since discordance with absolute values may lead to misinterpretation of CBC data. Current Interpretive Data was last revised on 2017. Monocyte pct 10.2 % [facility] Comment: Interpretive Data Percent cell count reference ranges are not reported, since discordance with absolute values may lead to misinterpretation of CBC data. Current Interpretive Data was last revised on 2017. Eosinophil pct 0.0 % [facility] Comment: Interpretive Data Percent cell count reference ranges are not reported, since discordance with absolute values may lead to misinterpretation of CBC data. Current Interpretive Data was last revised on 2017. Basophil pct 0.0 % [facility] Comment: Interpretive Data Percent cell count reference ranges are not reported, since discordance with absolute values may lead to misinterpretation of CBC data. Current Interpretive Data was last revised on 2017. Blood 06/04/2022 10:5 2 PM CDT 06/04/2022 11:56 PM CDT us Catherine Adams MD LAB BLOOD ORDERABLES Final Result [facility] [place] [address] * (ABNORMAL) Troponin I high-sensitivity (06/04/2022 10:52 PM CDT) Trop I hs 4,797(C) <=35 ng/L [facility] Comment: Interpretive Data For further hscTnI resources including the diagnostic algorithm and an aid in interpretation, copy and paste this link: https://bjhlab.testcatalog.org/show/[email or web address] Current Interpretive Data last revised 2020. Blood 06/04/2022 10:5 2 PM CDT 06/04/2022 11:56 PM CDT us Catherine Adams MD LAB BLOOD ORDERABLES Final Result [facility] [place] [address] * (ABNORMAL) Pro B-type natriuretic peptide (06/04/2022 [...] Adams MD LAB BLOOD ORDERABLES Final Result [facility] [place] [address] * (ABNORMAL) CBC with auto differential (06/04/2022 10:52 PM CDT) Pathologist [facility] WBC 7.7 3.8 - 9.9 K/cumm [facility] Hgb 9.5(L) 13.0 - 17.5 g/dL [facility] Hct 27.2(L) 38.9 - 50.3 % [facility] Plt 195 150 - 400 K/cumm [facility] MPV 11.3 9.1 - 12.3 fL [facility] RBC 3.10(L) 4.30 - 5.80 M/cumm [facility] MCV 87.7 81.3 - 96.4 fL [facility] MCH 30.6 27.1 - 33.3 pg [facility] MCHC 34.9 32.3 - 35.7 g/dL [facility] RDW CV 12.5 11.1 - 14.9 % [facility] RDW SD 40.2 35.7 - 48.1 fL [facility] NRBC abs 0.00 0.00 - 0.01 K/cumm [facility] Blood 06/04/2022 10:5 2 PM CDT 06/04/2022 11:56 PM CDT us Catherien Adams MD LAB BLOOD ORDERABLES Final Result [facility] [place] [address] * (ABNORMAL) Comprehensive metabolic panel (06/04/2022 10:52 PM CDT) Sodium 129(L) 135 - 145 mmol/L [facility] Potassium, pl 4.0 3.3 - 4.9 mmol/L [facility] Chloride 88(L) 97 - 110 mmol/L [facility] CO2 24 22 - 32 mmol/L [facility] Anion gap 17(H) 2 - 15 mmol/L [facility] BUN 82(H) 8 - 25 mg/dL [facility] Creatinine 8.95(H) 0.80 - 1.30 mg/dL [facility] Glucose 185 70 - 199 mg/dL [facility] Comment: Interpretive Data Fasting glucose >/= [...] 8.6 8.5 - 10.3 mg/dL [facility] Bilirubin, total 0.5 0.1 - 1.2 mg/dL [facility] Protein, pl 6.5 6.5 - 8.5 g/dL [facility] Albumin 3.6 3.5 - 5.0 g/dL [facility] Alk phos 115 40 - 130 Units/L [facility] ALT 37 7 - 55 Units/L [facility] AST 53(H) 10 - 50 Units/L [facility] Blood 06/04/2022 10:5 2 PM CDT 06/04/2022 11:56 PM CDT Catherine Adams MD LAB BLOOD ORDERABLES Final Result [facility] [place] [address] * XR Chest 1 View (06/04/2022 10:50 [...] Diagnosis Diagnosis unknown Coronary artery disease involving [place] heart without angina pectoris, unspecified vessel or [...] Coronary atherosclerosis of unspecified type of vessel, [place] or graft Unstable angina (CMS/HCC) (HCC) Intermediate [...] Mon06/22/22 at 1930 Given 06/27/2022 5:47 PM VACATION SALES ADVISOR 1,000 mg albuterol HFA (PROVENTIL HFA,VENTOLIN HFA,PROAIR HFA) 90 mcg/actuation inhaler 2 puff 2 puff, inhalation, Every 6 hours PRN (sales correspondent), wheezing, shortness of breath, Starting on Mon06/05/22 at 0229 Given 06/15/2022 2:50 AM CDT 2 puffs aspirin chewable tablet 81 mg 81 mg, oral, Daily, First dose (after last modification) on Gregoria 06/23/22 at 0900 Given 06/29/2022 8:23 AM VACATION SALES ADVISOR 81 mg Given 06/28/2022 8:56 AM VACATION SALES ADVISOR 81 mg Given 06/27/2022 8:17 AM VACATION SALES ADVISOR 81 mg atorvastatin (LIPITOR) tablet 80 mg 80 mg, oral, Daily, First dose (after last modification) on Gregoria 06/23/22 at 0900 Given 06/29/2022 8:23 AM VACATION SALES ADVISOR 80 mg Given 06/28/2022 8:56 AM VACATION SALES ADVISOR 80 mg Given 06/27/2022 8:18 AM VACATION SALES ADVISOR 80 mg calcitRIOL (ROCALTROL) capsule 0.25 mcg 0.25 mcg, oral, Daily, First dose on Mon06/22/22 at 1000 Given 06/29/2022 8:23 AM VACATION SALES ADVISOR 0.25 mcg Given 06/28/2022 8:56 AM VACATION SALES ADVISOR 0.25 mcg Given 06/27/2022 8:17 AM VACATION SALES ADVISOR 0.25 mcg calcium acetate(phosphat bind) (PHOSLO) capsule 667 mg 667 mg, oral, 4 times daily, First dose on 06/05/22 at 0800, Take with food Given 06/29/2022 12:34 PM VACATION SALES ADVISOR 667 mg Given 06/29/2022 8:23 AM VACATION SALES ADVISOR 667 mg Given 06/28/2022 9:00 PM VACATION SALES ADVISOR 667 mg clopidogreL (PLAVIX) tablet 75 mg 75 mg, oral, Daily, First dose (after last modification) on Gregoria 06/23/22 at 0900 Given 06/29/2022 8:23 AM VACATION SALES ADVISOR 75 mg Given 06/28/2022 8:56 AM VACATION SALES ADVISOR 75 mg Given 06/27/2022 8:18 AM VACATION SALES ADVISOR 75 mg dextrose (D10W) 10% bolus 250 [...] 06/23/22 at 0900 Given 06/29/2022 8:23 AM VACATION SALES ADVISOR 10 mg Given 06/28/2022 8:56 AM VACATION SALES ADVISOR 10 mg Given 06/27/2022 8:18 AM VACATION SALES ADVISOR 10 mg fentaNYL (SUBLIMAZE) preservative free injection [...] Infection ProphylaxisIndications:Infection Prophylaxis Given 06/28/2022 8:05 PM [employer] SALES ADVISOR glucagon injection 1 mg 1 mg, intramuscular, [...] Vein Thrombosis Prevention Given 06/29/2022 12:34 PM [employer] SALES ADVISOR 5,000 Units Left Lower Abdomen Given 06/29/2022 5:01 AM [employer]ATION SALES ADVISOR 5,000 Units L eft Lower Abdomen Given 06/28/2022 9:00 PM VACATION SALES ADVISOR 5,000 Units L eft Upper Abdomen heparin [...] Self Administered Via Pump 06/29/2022 12:34 PM [employer]ACATION SALES ADVISOR 8 Units Left Lower Abdomen Self Administered Via Pump 06/29/2022 8:27 AM VACATION SALES ADVISOR 7 Units Left Lower Abdomen Self Administered Via Pump 06/28/2022 5:55 PM VACATION SALES ADVISOR 4.3 Unit s Left Lower Abdomen ioversoL [...] otherwise manipulate tablet/capsule. Given 06/29/2022 8:22 AM [employer]ATION SALES ADVISOR 30 m g Given 06/28/2022 8:56 AM [employer]ATION SALES ADVISOR 30 mg Given 06/27/2022 8:18 AM [employer]ACATION SALES ADVISOR 30 mg lidocaine (LIDODERM) 5 % patch 1 patch 1 patch, transdermal, Administer over 12 Hours, Daily PRN, 2nd line for pain, Starting on 06/05/22 at 0413, Do not cover the holes on the top side of the patch., Apply to affected area: back losartan (COZAAR) tablet 12.5 mg 12.5 mg, oral, Daily, First dose on 06/25/22 at 0900 Given 06/29/2022 8:22 AM VACATION SALES ADVISOR 12.5 mg Given 06/28/2022 8:56 AM VACATION SALES ADVISOR 12.5 mg Given 06/27/2022 8:17 AM VACATION SALES ADVISOR 12.5 mg metoprolol tartrate (LOPRESSOR) immediate release tablet 25 mg 25 mg, oral, 2 times daily, First dose (after last modification) on 06/27/22 at 0900 Given 06/29/2022 8:22 AM VACATION SALES ADVISOR 25 mg Given 06/28/2022 9:00 PM VACATION SALES ADVISOR 25 mg Given 06/28/2022 8:56 AM VACATION SALES ADVISOR 25 mg midazolam (VERSED) 1 mg/mL preservative [...] GI BleedIndications:GI Bleed Given 06/29/2022 8:22 AM VACATION SALES ADVISOR 40 mg Given 06/28/2022 8:56 AM VACATION SALES ADVISOR 40 mg Given 06/27/2022 8:18 AM VACATION SALES ADVISOR 40 mg phenylephrine (JONN-SYNEPHRINE) 0.5 mg/5 mL [...] 06/16/22 at 2100 Given 06/29/2022 12:34 PM VACATION SALES ADVISOR 1 drop Given 06/29/2022 8:22 AM VACATION SALES ADVISOR 1 drop Given 06/28/2022 9:01 PM VACATION SALES ADVISOR 1 drop ramelteon (ROZEREM) tablet 8 mg [...] Recently Administered Medications Times are shown in VACATION SALES ADVISOR. Scheduled Medication Order 06/27/2022 06/28/2022 06/29/2022 aspirin [...] [phone] (Self Administered Via Pump - Provider: Mnada Lake RN)1755 (Self Administered Via Pump - [...] 2 puff, inhalation, Every 6 hours PRN (sales correspondent), wheezing, shortness of breath, Starting on [...] Date First Orde red Date CASE REQUEST PARALEGAL SPECIALIST 1 06/10/2022 ADT Patient Update Count Last Ordered Date Firs t Ordered Date PROVIDER TREATMENT TEAM 1 06/04/2022 documented in this encounter Additional Health Concerns Infection Onset Date Last Indicated Resolved Time COVID: Suspected 06/08/2022 06/08/2022 06/08/2022 10:14 PM CDT COVID: Suspected 06/15/2022 06/15/2022 06/15/2022 1:03 PM CDT documented as of this encounter Care Teams Manager Exchange Relationship Specialty Start Date End Date Aditya Castro MD [address] [facility] DE[place] [address] PCP - General 10/17/19 documented as of this encounter
--- OUTSIDE RECORDS SUMMARY | 2024-08-24 04:51 | XMS_ITS | Encounter Summary ---
Author Organization [facility] Address [address] [address] Care Team Providers Care Application Administrator Name Role Phone Jhonatan Bellamy MD Primary Care Provider [phone]- [phone] Encounter Details Date Type Department Care Team (Late st Contact Info) Description 09/11/2017 Telephone [facility] [address] [place] [phone] Shira Bernstein RMA Social History Tobacco Use Types Packs/Day Years Used Date Smoking Tobacco: Never Smokeless Tobacco: Former Alcohol Use Standard Drinks/Week Comments No 0 (1 standard drink = 0.6 oz pur e alcohol) Sex and Gender Information Value Date Recorded Sex Assigned at Not on file Legal Sex Male 3:42 AM REPAIRER EVAPORATOR Gender Identity Not on file Sexual Orientation Not on file documented as of this encounter Miscellaneous Notes * Telephone Encounter - Gaby Anderson RN - 09/11/2017 1:41 PM REPAIRER EVAPORATOR I returned the call to annamarie. She is requesting copy of last office note. Note faxed to her at [phone]. She will call us back if she has any further questions after receiving the note. IRER EVAPORATOR * Telephone Encounter - Shira Bernstein MA - 09/11/2017 11:13 AM CST Please give the pt a call in regards to the restrictions that the pt has been placed on. What activity can the pt do, or not do IRER EVAPORATOR documented in this encounter Plan of Treatment Not on file documented as of this encounter Visit Diagnoses Not on filedocumented in this encounter Care Teams Application Administrator Relationship Specialty Start Date End Date Jhonatan Bellamy MD [address] [place] [address] PCP - General 03/25/15 04/16/18 documented as of this encounter
--- OUTSIDE RECORDS SUMMARY | 2024-08-24 04:51 | XMS_ITS | Encounter Summary ---
Author Organization [facility] Address [address] [place] [address] Phone Care Team Providers Care Filter Plant Supervisor Name Role Phone Jhonatan Bellamy MD Primary Care Provider [phone]- [phone] Encounter Details Date Type Department Care Team (Late st Contact Info) Description 03/22/2018 Telephone [facility] Rheumatology [address] [facility] 5th [place] [address] [place] [address] Alexis Gonzalez RMA Social History Tobacco Use Types Packs/Day Years Used Date Smoking Tobacco: Never Smokeless Tobacco: Former Alcohol Use Standard Drinks/Week Comments No 0 (1 standard drink = 0.6 oz pur e alcohol) Sex and Gender Information Value Date Recorded Sex Assigned at Not on file Legal Sex Male 3:42 AM TYPEWRITER OPERATOR AUTOMATIC Gender Identity Not on file Sexual Orientation [...] on filedocumented in this encounter Care Teams Filter Plant Supervisor Relationship Specialty Start Date End Date Jhonatan Bellamy MD [address] [place] [address] PCP - General 03/25/15 04/16/18 documented as of this encounter
--- OUTSIDE RECORDS SUMMARY | 2024-08-24 04:51 | XMS_ITS | Encounter Summary ---
Author Organization [facility] Address [address] [place] [address] Care Team Providers Care Paper Twister Name Role Phone Aditya Castro MD Primary Care Provider [phone] Encounter Details Date Type Department Care Team (Latest Contact Info) Description 01/21/2021 6:13 AM CDT - 01/21/2021 12:40 PM CDT Hospital Encounter [facility] Cardiac Catheterization Lab [address] [place] [address] [place] [address] [place] [id number] Abnormal cardiovascular stress test Discharge Disposition: Discharge [...] on file Legal Sex Male 3:42 AM CASTING PLUG 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 [phone] Dr. Hubbard documented in this encounter Medications [...] by mouth daily as needed for allergies EZETIMIBE ORAL Take 10 mg by mouth daily omeprazole (PriLOSEC) 20 mg capsuleIndication s:GI Bleed,prevention Take 1 capsule (20 mg total) by mouth daily pen needle, diabetic (BD Ultra-Fine Short Pen Needle) 31 gauge x 5/16 needle 01/30/2018 cholecalciferol (VITAMIN D-3) 2000 unit tabletIndications :Vitamin D Deficiency Take 25 tablets (50,000 Units total) by mouth once a week ketoconazole (NIZORAL) 2 % shampoo APPLY EXTERNALLY 2 TO 3 TIMES EVERY WEEK NEEDED 04/23/2019 nitroglycerin (NITROSTAT) 0.4 mg SL tablet 12/27/2017 amLODIPine (NORVASC) 10 mg tablet Take 10 mg by mouth daily 2 cloNIDine (CATAPRES) 0.1 mg tablet Take 0.2 mg by mouth every 8 (eight) hours 02/24/2018 2 clopidogrel (PLAVIX) 75 mg tablet TAKE 1 TABLET BY MOUTH DAILY 90 tablet 01/28/2019 4 doxycycline monohydrate (ADOXA) 50 mg tablet Take [...] take one tablet three times daily 2 colchicine (Colcrys) 0.6 mg tablet Take one tablet po every Monday, Monday and Monday. 2 documented as of this encounter Discharge [...] ANGIOGRAPHY AND WITH OR WITHOUT LEFT VENTRICULOGRAM [id number] Source Note - Hamlet Hubbard Jr., MD [...] that you and your doctor have chosen [facility] for your surgery. We hope that the [...] doctor. ?? Use no cologne, make-up, nail monegasque, lotions, oils or powders on your skin. [...] (ABNORMAL) POCT glucose (01/21/2021 11:22 AM CDT) [facility] Signature Glucose, POC 306(H) 70 - 199 mg/dL [facility] Blood specimen (specimen) 01/21/2021 11:22 AM CDT 01/21/2021 11:22 AM CDT us Hamlet Hubbard Jr., MD LAB POCT ORDERABLES - D EVICE Final Result Performing Organization Address [facility] de Phone Number [facility] [address] [address] Department [place] [place] [address] * (ABNORMAL) POCT glucose (01/21/2021 10:10 AM CDT) Glucose, POC 242(H) 70 - 199 mg/dL [facility] Blood specimen (specimen) 01/21/2021 10:10 AM CDT 01/21/2021 10:10 AM CDT Hamlet Hubbard Jr., MD LAB POCT ORDERABLES - D EVICE Final Result Performing Organization Address [facility] de Phone Number [facility] [address] [address] [place] [address] * LEFT HEART CATHETERIZATION WITH CORONARY ANGIOGRAPHY AND WITH AND WITHOUT LEFT VENTRICULOGRAM (01/21/2021 9:42 AM CDT) Anatomical Region Laterality Modality X-Ray Angiograph y 01/21/2021 Narrative 01/25/2021 10:30 AM CDT [employer] Job ID: [id number] [employer] Document ID: [id number] Dictated date/time: [id number] CATHETERIZATION REPORT PROCEDURE PERFORMED Left heart catheterization [...] placed in the left femoral artery. ??A 5-Serbian #4 Kranthi left coronary catheter was advanced to left coronary ostium. ??Left arteriograms performed with normal projections. ??The catheter was removed and replaced with a 5-Serbian #4 Kranthi right ?? coronary catheter which was advanced to right coronary ostium. ??Right coronary arteriograms were performed in multiple projections. ??This catheter was removed and exchanged for a 5-Serbian pigtail catheter which was advanced to left [...] very pleasant gentleman. JOB ID/VF JOB ID: ??[id number] aHmlet Hubbard Jr., MD CV CARDIAC CATH PROCEDU RES Final Result * POCT glucose (01/21/2021 7:21 AM CDT) Glucose, POC 191 70 - 199 mg/dL [facility] Blood specimen (specimen) 01/21/2021 7:21 AM CDT 01/21/2021 7:21 AM CDT Hamlet Hubbard Jr., MD LAB POCT ORDERABLES - D EVICE Final Result [facility] [address] [address] Department [place] [address] * POCT glucose (01/21/2021 6:59 AM CDT) Glucose, POC 157 70 - 199 mg/dL [facility] Blood specimen (specimen) 01/21/2021 6:59 AM CDT 01/21/2021 6:59 AM CDT Hamlet Hubbard Jr., MD LAB POCT ORDERABLES - D EVICE Final Result Performing Organization Address City/State/[facility] Phone Number [facility] [address] [facility] Department [place] [address] * (ABNORMAL) Lipid panel (01/21/2021 6:34 AM CDT) Cholesterol 166 30 - 199 mg/dL [facility] Comment: Interpretive Data Ages < [...] last revised on 2018. Chol/HDL ratio 5 [facility] Blood specimen (specimen) 01/21/2021 6:34 AM CDT 01/21/2021 6:38 AM CDT Hamlet Hubbard Jr., MD LAB BLOOD ORDERABLES Fi nal Result Performing Organization Address City/[facility] Co de Phone Number [facility] [address] [place] [address] * (ABNORMAL) POCT glucose (01/21/2021 6:23 AM CDT) Glucose, POC 66(L) 70 - 199 mg/dL [facility] Blood specimen (specimen) 01/21/2021 6:23 AM CDT 01/21/2021 6:23 AM CDT Hamlet Hubbard Jr., MD LAB POCT ORDERABLES - D EVICE Final Result Performing Organization Address [facility] Co de Phone Number [facility] [address] [address] [place] [address] documented in this encounter Visit Diagnoses Diagnosis [...] free injection (CANCELED) As needed, Starting on Gregorai 01/21/21 at 0923, Intra-Procedure (CV) 0923 (Given [...] 01/21/2021 documented in this encounter Care Teams Paper Twister Relationship Specialty Start Date End Date Aditya Castro MD [address] [facility] [place] [address] PCP - General 10/17/19 documented as of this encounter
--- OUTSIDE RECORDS SUMMARY | 2024-08-24 04:51 | XMS_ITS | Encounter Summary ---
Author Organization [facility] Address [address] [address] Care Team Providers Care Vice President Name Role Phone Jhonatan Bellamy MD Primary Care Provider [phone] Encounter Details Date Type Department Care Team (Late st Contact Info) Description 2017 Telephone [facility] [address] [address] Abelardo Petit MD [address] [facility] [address] [address] Social History Tobacco Use Types Packs/Day Years Used Date Smoking Tobacco: Never Smokeless Tobacco: Former Alcohol Use Standard Drinks/Week Comments No 0 (1 standard drink = 0.6 oz pur e alcohol) Sex and Gender Information Value Date Recorded Sex Assigned at Not on file Legal Sex Male 3:42 AM TEST MAN Gender Identity Not on file Sexual Orientation Not on file documented as of this encounter Miscellaneous Notes * Telephone Encounter - Lisa Diaz RN - 2017 2:54 PM CST Told pt that Dr Petit is in the office today and I asked someone to ask him about completing the ADA forms. I will call pt when they are complete. MAN documented in this encounter Plan of Treatment Not on file documented as of this encounter Visit Diagnoses Not on filedocumented in this encounter Care Teams Vice President Relationship Specialty Start Date End Date Jhonatan Bellamy MD [address] [place], [place] [id number] PCP - General 03/25/15 04/16/18 documented as of this encounter
--- OUTSIDE RECORDS SUMMARY | 2024-08-24 04:51 | XMS_ITS | Encounter Summary ---
Author Organization [facility] Address [address] [facility] [address] [place] [address] Care Team Providers Care Electrical Integrator Name Role Phone Eugenia Hughes MD Primary Care Provider [phone]- [phone] Encounter Details Date Type Department Care Team (Late st Contact Info) Description 09/09/2019 Orders Only [facility] Cardiology [address] [facility] [address] [address] [place] Petit MD [address] [facility] [address] [place] [address] Social History Tobacco Use Types Packs/Day Years Used Date Smoking Tobacco: Never Smokeless Tobacco: Former Alcohol Use Standard Drinks/Week Comments No 0 (1 standard drink = 0.6 oz pur e alcohol) Sex and Gender Information Value Date Recorded Sex Assigned at Not on file Legal Sex Male 3:42 AM VP INFORMATION TECHNOLOGY Gender Identity Not on file Sexual Orientation [...] on filedocumented in this encounter Care Teams Electrical Integrator Relationship Specialty Start Date End Date Dill Rader, Eugenia, MD PCP - General Family Practice 04/19/18 10/16/19 documented as of this encounter
--- OUTSIDE RECORDS SUMMARY | 2024-08-24 04:51 | XMS_ITS | Encounter Summary ---
Author Organization [facility] Address [address] [facility] [address] [place] [address] Care Team Providers Care Vegetable Packer Name Role Phone Aditya aCstro MD Primary Care Provider [phone] Encounter Details Date Type Department Care Team (Late st Contact Info) Description 02/02/2020 Orders Only [facility] Cardiology [address] [facility] [address] [place] [address] Carrington Weeks MD [facility] [place] [id number] Social History Tobacco Use Types Packs/Day Years Used Date Smoking Tobacco: Never Smokeless Tobacco: Former Alcohol Use Standard Drinks/Week Comments No 0 (1 standard drink = 0.6 oz pur e alcohol) Sex and Gender Information Value Date Recorded Sex Assigned at Not on file Legal 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
--- OUTSIDE RECORDS SUMMARY | 2024-08-24 04:51 | XMS_ITS | Encounter Summary ---
Author Organization [facility] Address [address] [address] Care Team Providers Care Installers Mechanical Name Role Phone Jhonatan Bellamy MD Primary Care Provider [phone]- [phone] Encounter Details Date Type Department Care Team (Late st Contact Info) Description 08/11/2017 Telephone [facility] [address] [address] Abel[place] Petit MD [address] [facility] [address] [address] Social History Tobacco Use Types Packs/Day Years Used Date Smoking Tobacco: Never Smokeless Tobacco: Former Alcohol Use Standard Drinks/Week Comments No 0 (1 standard drink = 0.6 oz pur e alcohol) Sex and Gender Information Value Date Recorded Sex Assigned at Not on file Legal Sex Male 3:42 AM PACKER INSULATION Gender Identity Not on file Sexual Orientation Not on file documented as of this encounter Miscellaneous Notes * Telephone Encounter - Lisa Diaz RN - 08/11/2017 9:12 AM CST Noted ER INSULATION documented in this encounter Plan of Treatment Not on file documented as of this encounter Visit Diagnoses Not on filedocumented in this encounter Care Teams Installers Mechanical Relationship Specialty Start Date End Date Jhonatan Bellamy MD [address] [place] [address] PCP - General 03/25/15 04/16/18 documented as of this encounter
--- OUTSIDE RECORDS SUMMARY | 2024-08-24 04:51 | XMS_ITS | Encounter Summary ---
Author Organization [facility] Address [address] [place] [address] Phone Care Team Providers Care Carpenter Cradle And Dolly Name Role Phone Jhonatan Bellamy MD Primary Care Provider [phone]- [phone] Reason for Visit * Reason Onset Date Comments Prior Auth 02/19/2018 uloric 40mg once daily Encounter Details Date Type Department Care Team (Late st Contact Info) Description 02/19/[address] 5th [place] [address] [place] [address] Martha Duckworth Prior Auth (uloric 40mg once daily) Social History Tobacco Use Types Packs/Day Years Used Date Smoking Tobacco: Never Smokeless Tobacco: Former Alcohol Use Standard Drinks/Week Comments No 0 (1 standard drink = 0.6 oz pur e alcohol) Sex and Gender Information Value Date Recorded Sex Assigned at Not on file 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 Gender Identity Not on file Sexual Orientation Not on file documented as of this encounter Miscellaneous Notes * Telephone Encounter - Josselin Meyers BS - 02/26/2018 9:17 AM CDT MEDICATION PRIOR AUTHORIZATION FORM Date: 02/26/18 Patient Name: Juvenal Daigle : 1970 PROVIDER: NAVARRO PELLETIER PRIMARY DIAGNOSIS: CHRONIC GOUT ICD-10 CODE: [id number] RX BENEFIT DIRECTOR ENVIRONMENTAL: DIANE HEARN ID#: [id number] CUSTOMER SERVICE PH#: FAX#: DRUG INFORMATION: ULORIC 40mg TABLETS Requested Prescriptions No prescriptions requested or ordered in this encounter CAN THIS DRUG BE FILLED AT ANY PHARMACY?: DOES THIS DRUG REQUIRE THE USE OF A SPECIALTY PHARMACY?: PHARMACY NAME: PHONE#: FAX#: AUTH#: [id number] EFFECTIVE: 02/20/2018 EXPIRES: 05/20/2018 NOTES: Lisa JACKSON: [...] filedocumented in this encounter Care Teams Carpenter Cradle And Dolly Relationship Specialty Start Date End Date Jhonatan Bellamy MD [address] [place] [address] PCP - General 03/25/15 04/16/18 documented as of this encounter
--- OUTSIDE RECORDS SUMMARY | 2024-08-24 04:51 | XMS_ITS | Encounter Summary ---
Author Organization [facility] Address [address] [facility] [address] [place] [address] Care Team Providers Care Commercial Diver Name Role Phone Eugenia Hughes MD Primary Care Provider [phone]- [phone] Encounter Details Date Type Department Care Team (Late st Contact Info) Description 09/10/2019 Orders Only [facility] Cardiology [address] [facility] [address] [place] [address] Luís Arizmendi MD [address] [place] [id number] Social History Tobacco Use Types Packs/Day Years Used Date Smoking Tobacco: Never Smokeless Tobacco: Former Alcohol Use Standard Drinks/Week Comments No 0 (1 standard drink = 0.6 oz pur e alcohol) Sex and Gender Information Value Date Recorded Sex Assigned at Not on file 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
--- OUTSIDE RECORDS SUMMARY | 2024-08-24 04:51 | XMS_ITS | Encounter Summary ---
Author Organization [facility] Address [address] [address] Care Team Providers Care Graphics Intern Name Role Phone Aditya Castro MD Primary Care Provider [phone] Encounter Details Date Type Department Care Team (Late st Contact Info) Description 01/11/2021 Orders Only [facility] Cardiology 6810 [facility] 162 [facility] 102 [place] [phone] Abelardo Petit MD [address] [facility] 102 [place] [address] Social History Tobacco Use Types [...] on file 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
--- OUTSIDE RECORDS SUMMARY | 2024-08-24 04:51 | XMS_ITS | Encounter Summary ---
Author Organization [facility] Address [address] [facility] [address] [place] [address] Care Team Providers Care Brief Writer Name Role Phone Jhonatan Bellamy MD Primary Care Provider [phone] Encounter Details Date Type Department Care Team (Late st Contact Info) Description 11/15/2017 Telephone [facility] [address] [facility] [address] [address] Abelardo Petit MD [address] [facility] 102 [place] [address] Social History Tobacco Use Types Packs/Day Years Used Date Smoking Tobacco: Never Smokeless Tobacco: Former Alcohol Use Standard Drinks/Week Comments No 0 (1 standard drink = 0.6 oz pur e alcohol) Sex and Gender Information Value Date Recorded Sex Assigned at Not on file Legal 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 It has not been. Pt does not Want usto send anything to [employer] releasing him to work, He has chest pressure and feels really lousy at work. He is exhausted after working a shift. He has an civil attorney to help him with SS disability [...] about disability. Pt can be reached at [phone] [place] Ram documented in this encounter Plan of Treatment Not on file documented as of this encounter Visit Diagnoses Not on filedocumented in this encounter Care Teams Brief Writer Relationship Specialty Start Date End Date Jhonatan Bellamy MD [address] [place] [address] PCP - General 03/25/15 04/16/18 documented as of this encounter
--- OUTSIDE RECORDS SUMMARY | 2024-08-24 04:51 | XMS_ITS | Encounter Summary ---
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
--- OUTSIDE RECORDS SUMMARY | 2024-08-24 04:51 | XMS_ITS | Encounter Summary ---
Author Organization [facility] Address [address] [facility] [address] [place] [address] Care Team Providers Care Electrification Adviser Name Role Phone Aditya Castro MD Primary Care Provider [phone] Encounter Details Date Type Department Care Team (Late st Contact Info) Description 02/02/2021 Orders Only [facility] Cardiology [address] [facility] [address] [facility] [address] [place] [address] Cyndi Nielson MD [address] 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
--- OUTSIDE RECORDS SUMMARY | 2024-08-24 04:51 | XMS_ITS | Encounter Summary ---
Author Organization [facility] Address [address] [place] [address] Care Team Providers Care Pulper Tender Name Role Phone Aditya Castro MD Primary Care Provider [phone] Encounter Details Date Type Department Care Team (Late st Contact Info) Description 02/01/2020 Orders Only [facility] Cardiology [address] [facility] [address] [place] [address] Carrington Weeks MD [facility] [place] [id number] Social History Tobacco Use Types Packs/Day Years Used Date Smoking Tobacco: Never Smokeless Tobacco: Former Alcohol Use Standard Drinks/Week Comments No 0 (1 standard drink = 0.6 oz pur e alcohol) Sex and Gender Information Value Date Recorded Sex Assigned at Not on file 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
--- OUTSIDE RECORDS SUMMARY | 2024-08-24 04:51 | XMS_ITS | Encounter Summary ---
Author Organization [facility] Healthcare Address [address] [place] [address] Care Team Providers Care General Dentist Name Role Phone Aditya Castro MD Primary Care Provider [phone] Encounter Details Date Type Department Care Team (Late st Contact Info) Description 01/21/2021 8:30 AM CDT - 01/21/2021 10:00 AM CDT Surgery [facility] Cardiac Catheterization Lab [address] [place] [address] Hamlet Hubbard Jr., MD [address] [place] [address] LEFT HEART CATHETERIZATION WITH CORONARY ANGIOGRAPHY AND WITH OR WITHOUT LEFT VENTRICULOGRAM [address] Surgery Details Date/Time Status Location OR Service Patient Class Case Class Case Type Trauma Case? 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 [phone] Dr. Hubbard documented in this encounter Medications [...] Ultra-Fine Short Pen Needle) 31 gauge x 16 needle 01/30/2018 cholecalciferol (VITAMIN D-3) 2000 unit [...] ANGIOGRAPHY AND WITH OR WITHOUT LEFT VENTRICULOGRAM [address] Source Note - Hamlet Hubbard Jr., MD [...] that you and your doctor have chosen [facility] for your surgery. We hope that the [...] doctor. ?? Use no cologne, make-up, nail armenian, lotions, oils or powders on your skin. [...] POC 306(H) 70 - 199 mg/dL [facility] Blood specimen (specimen) 01/21/2021 11:22 AM CDT 01/21/2021 11:22 AM CDT Hamlet Hubbard Jr., MD LAB POCT ORDERABLES - D EVICE Final Result Performing Organization Address [facility] Co de Phone Number ALESSANDRA [address] [address] [place] [address] * (ABNORMAL) POCT glucose (01/21/2021 10:10 AM CDT) Glucose, POC 242(H) 70 - 199 mg/dL [facility] Blood specimen (specimen) 01/21/2021 10:10 AM CDT 01/21/2021 10:10 AM CDT Hamlet Hubbard Jr., MD LAB POCT ORDERABLES - D EVICE Final Result Performing Organization Address [facility] de Phone Number [facility] [address] [place] [address] * LEFT HEART CATHETERIZATION WITH CORONARY ANGIOGRAPHY AND WITH AND WITHOUT LEFT VENTRICULOGRAM (01/21/2021 9:42 AM CDT) Anatomical Region Laterality Modality X-Ray Angiograph y 01/21/2021 Narrative 01/25/2021 10:30 AM CDT QCoefficient Job ID: [id number] QCoefficient Document ID: [id number] Dictated date/time: [id number] CATHETERIZATION REPORT PROCEDURE PERFORMED Left heart catheterization [...] placed in the left femoral artery. ??A 5-Libyan #4 Kranthi left coronary catheter was advanced to left coronary ostium. ??Left arteriograms performed with normal projections. ??The catheter was removed and replaced with a 5-Libyan #4 Kranthi right ?? coronary catheter which was advanced to right coronary ostium. ??Right coronary arteriograms were performed in multiple projections. ??This catheter was removed and exchanged for a 5-Libyan pigtail catheter which was advanced to left [...] very pleasant gentleman. JOB ID/VF JOB ID: ??[id number] Hamlet Hubbard Jr., MD CV CARDIAC CATH PROCEDU RES Final Result * POCT glucose (01/21/2021 7:21 AM CDT) [facility] Signature Glucose, POC 191 70 - 199 mg/dL [facility] Blood specimen (specimen) 01/21/2021 7:21 AM CDT 01/21/2021 7:21 AM CDT Hamlet Hubbard Jr., MD LAB POCT ORDERABLES - D EVICE Final Result [facility] [address] [address] [place] [address] * POCT glucose (01/21/2021 6:59 AM CDT) Glucose, POC 157 70 - 199 mg/dL [facility] Blood specimen (specimen) 01/21/2021 6:59 AM CDT 01/21/2021 6:59 AM CDT us Hamlet Hubbard Jr., MD LAB POCT ORDERABLES - D EVICE Final Result [facility] [address] [facility] Department [place] [address] * (ABNORMAL) Lipid panel (01/21/2021 6:34 AM CDT) Cholesterol 166 30 - 199 mg/dL [facility] Comment: Interpretive Data Ages < or [...] revised on 2018. Non-HDL Cholesterol 133 mg/dL [facility] Comment: Interpretive Data Ages < or [...] revised on 2018. Chol/HDL ratio 5 [facility] Blood specimen (specimen) 01/21/2021 6:34 AM CDT 01/21/2021 6:38 AM CDT Hamlet Hubbard Jr., MD LAB BLOOD ORDERABLES Fi nal Result Performing Organization Address City/[facility]/ZIP Co de Phone Number R[facility]OLPH[facility]RAH[facility] CONDE [address] [address] [place] [address] * (ABNORMAL) POCT glucose (01/21/2021 6:23 AM CDT) Glucose, POC 66(L) 70 - 199 mg/dL [facility] Blood specimen (specimen) 01/21/2021 6:23 AM CDT 01/21/2021 6:23 AM CDT Hamlet Hubbard Jr., MD LAB POCT ORDERABLES - D EVICE Final Result Performing Organization Address [facility] Co de Phone Number ALESSANDRA CONDE [address] [address] [place] [address] documented in this encounter Visit Diagnoses Diagnosis [...] (CV) 0940 (Given - Provid er: Hamlet Hubbrad Jr., MD) lidocaine (XYLOCAINE) 10 mg/mL (1 [...] 01/21/2021 documented in this encounter Care Teams General Dentist Relationship Specialty Start Date End Date Aditya Castro MD [address] [place] [address] PCP - General 10/17/19 documented as of this encounter
--- OUTSIDE RECORDS SUMMARY | 2024-08-24 04:51 | XMS_ITS | Encounter Summary ---
Author Organization [facility] Address [address] [address] Care Team Providers Care Black Leather Trimmer Name Role Phone Jhonatan Bellamy MD Primary Care Provider [phone] Encounter Details Date Type Department Care Team (Late st Contact Info) Description 02/16/2018 Telephone [facility] [address] [address] Abelardo Petit MD [address] [address] Social History Tobacco Use Types Packs/Day Years Used Date Smoking Tobacco: Never Smokeless Tobacco: Former Alcohol Use Standard Drinks/Week Comments No 0 (1 standard drink = 0.6 oz pur e alcohol) Sex and Gender Information Value Date Recorded Sex Assigned at Not on file 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 * Telephone Encounter - Amberly Rader - 02/16/2018 9:23 AM CDT Myrna from [facility] called for an ICD 10 code for plavix. [phone] documented in this encounter Plan of Treatment Not on file documented as of this encounter Visit Diagnoses Not on filedocumented in this encounter Care Teams Black Leather Trimmer Relationship Specialty Start Date End Date Jhonatan Bellamy MD [address] [place], [place] [id number] PCP - General 03/25/15 04/16/18 documented as of this encounter
--- OUTSIDE RECORDS SUMMARY | 2024-08-24 04:51 | XMS_ITS | Encounter Summary ---
Author Organization [facility] Address [address] [address] Care Team Providers Care Manager Epic Name Role Phone Jhonatan Bellamy MD Primary Care Provider [phone] Encounter Details Date Type Department Care Team (Late st Contact Info) Description 09/07/2017 Telephone [facility] [address] [place] [address] Carrington Weeks MD [address] [place] [address] Social History Tobacco Use Types Packs/Day Years Used Date Smoking Tobacco: Never Smokeless Tobacco: Former Alcohol Use Standard Drinks/Week Comments No 0 (1 standard drink = 0.6 oz pur e alcohol) Sex and Gender Information Value Date Recorded Sex Assigned at Not on file 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 He wanted to make an appointment to discuss being released to go back to work without restrictions. Scheduled patient with Dr. Petit for 09/13/2017 at 9 am. ENT ART CURATOR documented in this encounter Plan of Treatment Not on file documented as of this encounter Visit Diagnoses Not on filedocumented in this encounter Care Teams Manager Epic Relationship Specialty Start Date End Date Jhonatan Bellamy MD [address] [place] [address] PCP - General 03/25/15 04/16/18 documented as of this encounter
--- OUTSIDE RECORDS SUMMARY | 2024-08-24 04:51 | XMS_ITS | Encounter Summary ---
Author Organization [facility] Address [address] [place] [address] Phone Care Team Providers Care Sports Journalist Name Role Phone Jhonatan Bellamy MD Primary Care Provider [phone] Encounter Details Date Type Department Care Team (Late st Contact Info) Description 03/15/2018 Telephone [facility] Rheumatology [facility] Advanced Medicine 5th [place] [address] [place] [address] Alexis Gonzalez RMA Social History Tobacco Use Types Packs/Day Years Used Date Smoking Tobacco: Never Smokeless Tobacco: Former Alcohol Use Standard Drinks/Week Comments No 0 (1 standard drink = 0.6 oz pur e alcohol) Sex and Gender Information Value Date Recorded Sex Assigned at Not on file 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
--- OUTSIDE RECORDS SUMMARY | 2024-08-24 04:51 | XMS_ITS | Encounter Summary ---
Author Organization [facility] Healthcare Address [address] [place] [address] Care Team Providers Care Vocational Rehabilitation Supervisor Name Role Phone Jhonatan Bellamy MD Primary Care Provider [phone] Encounter Details Date Type Department Care Team (Latest Contact Info) Description 09/19/2017 11:58 AM RADIOLOGIST PHYSICIAN - 09/19/2017 4:33 PM [facility] Hospital Encounter [facility] OP INTERIM [phone] Zully Arriaga MD [address] [place] [address] Discharge Disposition: Discharge to home or self care Social History Tobacco Use Types Packs/Day Years Used Date Smoking Tobacco: Never Smokeless Tobacco: Former Alcohol Use Standard Drinks/Week Comments No 0 (1 standard drink = 0.6 oz pur e alcohol) Sex and Gender Information Value Date Recorded Sex Assigned at Not on file Legal Sex Male 3:42 AM RADIOLOGIST PHYSICIAN Gender Identity Not on file Sexual Orientation Not on file documented as of this encounter Medications at Time of Discharge aspirin 81 mg enteric coated tabletIndications: Myocardial Reinfarction Prevention Take 1 tablet (81 mg total) by mouth daily 11/07/2013 nitroglycerin (NITROSTAT) 0.4 mg SL tabletIndications: Coronary artery disease involving kaw coronary artery of kaw heart, angina presence unspecified Place 1 tablet [...] Comments GLUCOSE POC Routine 09/19/2017 1:07 PM RADIOLOGIST PHYSICIAN DISCHARGE LABORATORY CUMULATIVE REPORT 09/19/2017 12:00 AM RADIOLOGIST PHYSICIAN documented in this encounter Results * (ABNORMAL) Glucose POC (09/19/2017 1:07 PM RADIOLOGIST PHYSICIAN) [facility] Glucose, POC 403(C) 70 - 199 mg/dL [facility] Comment: Interpretive Data Glucose is assumed to be non-fasting. Fasting Glucose reference ranges are: 0 - 150 years: ??70 mg/dL - 99 mg/dL Current interpretive data was last revised on 2014. Glucose comment 1 RN/MD Notified [facility] Blood specimen (specimen) 09/19/2017 1:07 PM RADIOLOGIST PHYSICIAN 09/19/2017 1:07 PM RADIOLOGIST PHYSICIAN Narrative AL[facility]A CO[facility] - 09/19/2017 1:15 PM RADIOLOGIST PHYSICIAN Zully Arriaga MD POINT OF CARE TEST ORDERABLES Final Result [facility] [address] [facility]. Department [place] [address] * DISCHARGE LABORATORY CUMULATIVE REPORT (09/19/2017 12:00 AM RADIOLOGIST PHYSICIAN) Narrative 09/19/2017 12:00 AM RADIOLOGIST PHYSICIAN Ordered by an unspecified provider. Zev Provider LAB BLOOD ORDERABLES Ann Marie l Result documented in this encounter Visit Diagnoses Not on filedocumented in this encounter Care Teams Vocational Rehabilitation Supervisor Relationship Specialty Start Date End Date Jhonatan Bellamy MD [address] [place], [place] [id number] PCP - General 03/25/15 04/16/18 documented as of this encounter
--- OUTSIDE RECORDS SUMMARY | 2024-08-24 04:51 | XMS_ITS | Encounter Summary ---
Author Organization [facility] Healthcare Address [address] [place] [address] Care Team Providers Care Physical Science Professor Name Role Phone Aditya Castro MD Primary Care Provider [phone] Encounter Details Date Type Department Care Team (Late st Contact Info) Description 10/17/2019 9:05 AM WOOD POLISHER Hospital Encounter [facility] OP INTERIM Saulo Dockery MD [address] [address] Social History Tobacco Use Types Packs/Day Years Used Date Smoking Tobacco: Never Smokeless Tobacco: Former Alcohol Use Standard Drinks/Week Comments No 0 (1 standard drink = 0.6 oz pur e alcohol) Sex and Gender Information Value Date Recorded Sex Assigned at Not on file Legal Sex Male 3:42 AM WOOD 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 Gender Identity Not on file Sexual Orientation [...] BASIC METABOLIC PANEL Routine 10/17/2019 10:42 AM WOOD POLISHER XR CHEST PA LATERAL 2 VIEWS 10/17/2019 12:00 AM WOOD POLISHER documented in this encounter Results * (ABNORMAL) Basic metabolic panel (10/17/2019 10:42 AM WOOD POLISHER) Sodium 140 135 - 145 mmol/L [facility] Potassium 4.5 3.3 - 5.1 mmol/L [facility] Chloride 101 96 - 108 mmol/L [facility] Carbon Dioxide 25 22 - 32 mmol/L [facility] Anion Gap 14 7 - 16 [facility] Glucose 189(H) 70 - 100 mg/dL [facility] BUN 94(H) 8 - 25 mg/dL [facility] Creatinine 4.7(H) 0.5 - 1.3 mg/dL [facility] Comment: NOTE: Estimated GFR (Cockroft-Gault) will NOT be calculated unless patient Height and Weight were entered. Also, Kidney Disease Stage (GFR) and Estimated GFR (Cockroft-Gault) will NOT be calculated if Creatinine result is <0.2. Kidney Disease Stage <15 mL/MIN [facility] Comment: NOTE; ??The GFR is an [...] dialysis Calcium 9.1 8.6 - 10.3 mg/dL [facility] 10/17/2019 10:4 2 AM WOOD POLISHER 10/17/2019 10:55 AM WOOD POLISHER Narrative Resulting Agency Comment CLI us Lorne Mustafa MD LAB BLOOD ORDERABLES Final Re sult [place] [address] [place] [address], [facility] [phone] * XR Chest Pa Lateral 2 Views (10/17/2019 12:00 AM WOOD POLISHER) Anatomical Region Laterality Modality Body, Chest N/A Radiographic Toma ging 10/17/2019 4:10 PM WOOD POLISHER Narrative 10/17/2019 4:11 PM WOOD POLISHER Patient Name: JUVENAL GARVIN JR ?Ordering Dr: Lorne Mustafa MD ?? D.O.B: 1970 ? Exam Date: 10/17/ ?? 0000 ?? Age: 49 ?Sex: Male ? MR#: [id number] ?? Loc: ? RADIOLOGY REPORT ?? Order #[id number] ?? Radiology ? Chest 2 Views ? [...] T: ??10/17/2019 4:11 PM ? Report ID: [id number] ?? Reading Location: ??[id number] ? REPORT ELECTRONICALLY SIGNED IN OTHER VENDOR SYSTEM ?? Resulting Agency Comment O Procedure Note Cherelle Berrios MD - 10/17/2019 Patient Name: JUVENAL GARVIN Dr: Lorne Mustafa MD D.O.B: 1970 Exam Date: 10/17/19 0000 Age: 49 Sex: Male MR#: [id number] Loc: RADIOLOGY REPORT Order #[id number] Radiology Chest 2 Views Signed EXAM DESCRIPTION: [...] Cherelle Berrios M.D. TB: TB Report ID: [id number] Reading Location: [place] [address] REPORT ELECTRONICALLY SIGNED IN OTHER VENDOR SYSTEM us Lorne Mustafa MD IMG XR PROCEDURES Final Resul t documented in this encounter Visit Diagnoses Not on filedocumented in this encounter Care Teams Physical Science Professor Relationship Specialty Start Date End Date Aditya Castro MD [address] [place] [address] [place] [address] PCP - General 10/17/19 documented as of this encounter
--- OUTSIDE RECORDS SUMMARY | 2024-08-24 04:51 | XMS_ITS | Encounter Summary ---
Author Organization [facility] Healthcare Address [address] [place] [address] Care Team Providers Care Bus Assistant Name Role Phone Jhonatan Bellamy MD Primary Care Provider +1- [phone] Encounter Details Date Type Department Care Team (Latest Contact Info) Description 09/26/2017 11:05 AM GROUNDWATER MONITORING TECHNICIAN - 09/26/2017 2:33 PM [facility] Hospital Encounter [facility] OP INTERIM [phone] Corine Arriaga MD [address] [place] [address] Discharge Disposition: Discharge to home or self care Social History Tobacco Use Types Packs/Day Years Used Date Smoking Tobacco: Never Smokeless Tobacco: Former Alcohol Use Standard Drinks/Week Comments No 0 (1 standard drink = 0.6 oz pur e alcohol) Sex and Gender Information Value Date Recorded Sex Assigned at Not on file Legal Sex Male 3:42 AM GROUNDWATER MONITORING TECHNICIAN Gender Identity Not on file Sexual Orientation Not on file documented as of this encounter Medications at Time of Discharge aspirin 81 mg enteric coated tabletIndications: Myocardial Reinfarction Prevention Take 1 tablet (81 mg total) by mouth daily 11/07/2013 nitroglycerin (NITROSTAT) 0.4 mg SL tabletIndications: Coronary artery disease involving [place] coronary artery of [place] heart, angina presence unspecified Place 1 tablet [...] MD Zev - 09/26/2017 12:00 AM CST [facility] Patient: JUVENAL GARVIN Account: [id number] Room No: : 1970 Proc. Date: 09/26/2017 [...] Ring and implantation of +21 diopter Tecnis [id number] lens left eye. DESCRIPTION OF THE PROCEDURE [...] visually verifying that the 21 diopter Tecnis [id number] lens was the correct lens for this [...] Corine Arriaga MD On 09/26/2017 03:36 PM GROUNDWATER MONITORING TECHNICIAN Dorys RUBIO/ro TD: 09/26/2017 15:09 documented in this encounter Plan of Treatment Not on file documented as of this encounter Procedures Procedure Name Priority Date/Time Associated Diagnosis Comments GLUCOSE POC Routine 09/26/2017 1:24 PM GROUNDWATER MONITORING TECHNICIAN GLUCOSE POC Routine 09/26/2017 11:45 AM GROUNDWATER MONITORING TECHNICIAN DISCHARGE LABORATORY CUMULATIVE REPORT 09/26/2017 12:00 AM GROUNDWATER MONITORING TECHNICIAN documented in this encounter Results * Glucose POC (09/26/2017 1:24 PM GROUNDWATER MONITORING TECHNICIAN) Glucose, POC 121 70 - 199 mg/dL ALESSANDRA COLE Comment: Interpretive Data Glucose is assumed to be non-fasting. Fasting Glucose reference ranges are: 0 - 150 years: ??70 mg/dL - 99 mg/dL Current interpretive data was last revised on 2014. Blood specimen (specimen) 09/26/2017 1:24 PM GROUNDWATER MONITORING TECHNICIAN 09/26/2017 1:24 PM GROUNDWATER MONITORING TECHNICIAN Narrative ALESSANDRA COLE - 09/26/2017 1:38 PM GROUNDWATER MONITORING TECHNICIAN us Corine Arriaga MD POINT OF CARE TEST ORDERABLES Final Result Performing Organization Address City/State/[facility] Co de Phone Number [facility] [address] [facility] Department [place] [address] * Glucose POC (09/26/2017 11:45 AM GROUNDWATER MONITORING TECHNICIAN) Glucose, POC 130 70 - 199 mg/dL ALESSANDRA COLE Comment: Interpretive Data Glucose is assumed to be non-fasting. Fasting Glucose reference ranges are: 0 - 150 years: ??70 mg/dL - 99 mg/dL Current interpretive data was last revised on 2014. Blood specimen (specimen) 09/26/2017 11:45 AM GROUNDWATER MONITORING TECHNICIAN 09/26/2017 11:45 AM GROUNDWATER MONITORING TECHNICIAN Narrative ALESSANDRA BJWCH - 09/26/2017 11:50 AM GROUNDWATER MONITORING TECHNICIAN us Corine Arriaga MD POINT OF CARE TEST ORDERABLES Final Result ALESSANDRA BJWCH [address] [facility]. Department [place] [address] * DISCHARGE LABORATORY CUMULATIVE REPORT (09/26/2017 12:00 AM GROUNDWATER MONITORING TECHNICIAN) Narrative 09/26/2017 12:00 AM GROUNDWATER MONITORING TECHNICIAN Ordered by an unspecified provider. us Historical Provider LAB BLOOD ORDERABLES Ann Marie l Result documented in this encounter Visit Diagnoses Not on filedocumented in this encounter Care Teams Bus Assistant Relationship Specialty Start Date End Date Jhonatan Bellamy MD [address] [place], [place] [id number] PCP - General 03/25/15 04/16/18 documented as of this encounter
--- OUTSIDE RECORDS SUMMARY | 2024-08-24 04:51 | XMS_ITS | Encounter Summary ---
Author Organization [facility] Medical Group Address [address] [facility] [address] [place] [address] Care Team Providers Care Retinal Angiographer Name Role Phone Aditya Castro MD Primary Care Provider [phone] Encounter Details Date Type Department Care Team (Late st Contact Info) Description 01/31/2020 Orders Only [facility] Medical Group Cardiology [address] [facility] [address] [address] Abelardo Petit MD [address] [facility] [address] [place] [address] Social History Tobacco Use Types Packs/Day Years Used Date Smoking Tobacco: Never Smokeless Tobacco: Former Alcohol Use Standard Drinks/Week Comments No 0 (1 standard drink = 0.6 oz pur e alcohol) Sex and Gender Information Value Date Recorded Sex Assigned at Not on file Legal Sex Male 3:42 AM TROLLEY COACH DRIVER Gender Identity Not on file Sexual [...] on filedocumented in this encounter Care Teams Retinal Angiographer Relationship Specialty Start Date End Date Castro, Aditya, MD [address] [facility] [place] [place] [address] PCP - General 10/17/19 documented as of this encounter
--- OUTSIDE RECORDS SUMMARY | 2024-08-24 04:51 | XMS_ITS | Encounter Summary ---
Author Organization [facility] Medical Group Address [address] [address] Care Team Providers Care Production Worker Name Role Phone Jhonatan Bellamy MD Primary Care Provider [phone]- [phone] Encounter Details Date Type Department Care Team (Late st Contact Info) Description 08/07/2017 Telephone [facility] [address] [address] Abelardo Petit MD [address] [facility] [address] [address] Social History Tobacco Use Types Packs/Day Years Used Date Smoking Tobacco: Never Smokeless Tobacco: Former Alcohol Use Standard Drinks/Week Comments No 0 (1 standard drink = 0.6 oz pur e alcohol) Sex and Gender Information Value Date Recorded Sex Assigned at Not on file Legal Sex Male 3:42 AM PREPARATION SUPERVISOR Gender Identity Not on file Sexual Orientation Not on file documented as of this encounter Miscellaneous Notes * Telephone Encounter - Lisa Diaz RN - 08/07/2017 5:[address] Petit will sign the note pt requested tomorrow. Will call patient when it's ready. ARATION SUPERVISOR * Telephone Encounter - Lisa Diaz RN - 08/07/2017 3:55 PM CST Pt needs note stating that he has been under the care of Dr Peitt. He had an MS and subsequent stent placement and has been unable to work since March. Will check with Dr Petit. 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 ARATION SUPERVISOR * Telephone Encounter - Lisa Diaz RN - 08/07/2017 3:07 PM CST Called pt, told him that Disability paperwork has been faxed and confirmation received. LMOM ARATION SUPERVISOR * Telephone Encounter - Lisa Diaz RN - 08/07/2017 1:34 PM CST Pt said he's having cataract surgery Next week. He needs clearance for the surgery. Will check withdr Petit . Pt did not go back to work last week because they want him to complete ADA paperworkfirst and he has not received it. ARATION SUPERVISOR * Telephone Encounter - Elsie Holly RN - 08/07/2017 12:33 PM PREPARATION SUPERVISOR I did not receive any forms on Monday. ARATION SUPERVISOR * Telephone Encounter - Lisa Diaz RN - 08/07/2017 12:02 PM CST Pt said he dropped off forms on Monday for his short term disability. Told pt I don not have those forms, will check with the nurse that was here on Monday. ARATION SUPERVISOR documented in this encounter Plan of Treatment Not on file documented as of this encounter Visit Diagnoses Not on filedocumented in this encounter Care Teams Production Worker Relationship Specialty Start Date End Date Jhonatan Bellamy MD [address] [place] [address] PCP - General 03/25/15 04/16/18 documented as of this encounter
--- OUTSIDE RECORDS SUMMARY | 2024-08-24 04:51 | XMS_ITS | Encounter Summary ---
Author Organization [facility] Medical Group Address [address] [address] Care Team Providers Care Brass Polisher Name Role Phone Jhonatan Bellamy MD Primary Care Provider +1- [phone] Encounter Details Date Type Department Care Team (Late st Contact Info) Description 07/17/2017 Telephone [facility] [address] [address] Abelardo Petit MD 68[address] [facility] [address] [address] Social History Tobacco Use Types Packs/Day Years Used Date Smoking Tobacco: Never Smokeless Tobacco: Former Alcohol Use Standard Drinks/Week Comments No 0 (1 standard drink = 0.6 oz pur e alcohol) Sex and Gender Information Value Date Recorded Sex Assigned at Not on file Legal Sex Male 3:42 AM RN MATERNITY Gender Identity Not on file Sexual Orientation Not on file documented as of this encounter Miscellaneous Notes * Telephone Encounter - Lisa Diaz RN - 07/17/2017 1:13 PM CST Pt igor that his STD paperwork was not received. Told him, I will refax it . MATERNITY documented in this encounter Plan of Treatment Not on file documented as of this encounter Visit Diagnoses Not on filedocumented in this encounter Care Teams Brass Polisher Relationship Specialty Start Date End Date Jhonatan Bellamy MD [address] [place] [address] PCP - General 03/25/15 04/16/18 documented as of this encounter
--- OUTSIDE RECORDS SUMMARY | 2024-08-24 04:51 | XMS_ITS | Encounter Summary ---
Author Organization [facility] Medical Group Address [address] [facility] [address] [place] [address] Care Team Providers Care Shoe Dresser Name Role Phone Jhonatan Bellamy MD Primary Care Provider [phone]- [phone] Reason for Visit * Reason Comments Coronary Artery Disease Chronic Kidney Disease one mo f/u Encounter Details Date Type Department Care Team (Late st Contact Info) Description 12/14/2017 11:45 AM CDT Office Visit [facility] [address] [address] Abelardo Petit MD [address] [facility] [address] [id number] 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[place] artery of [place] heart with stable angina pectoris (CMS/HCC) (Primary Dx); History of coronary artery stent placement Social History Tobacco Use Types Packs/Day Years Used Date Smoking Tobacco: Never Smokeless Tobacco: Former Alcohol Use Standard Drinks/Week Comments No 0 (1 standard drink = 0.6 oz pur e alcohol) Sex and Gender Information Value Date Recorded Sex Assigned at Not on file Legal Sex Male 3:42 AM HUB BORER Gender Identity Not on file Sexual Orientation [...] enzyme evidence of a non ST elevation [place]. He underwent catheterization in 5 of was found to have high-grade stenosis in the distal right coronary artery bridging over the origin of the quality director lateral branch. He also had diffuse non [...] so he can pursue this with his traffic law attorney. REVIEW OF SYSTEMS General ROS: negative [...] for this visit: 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[place] artery of [place] heart with stable angina pectoris (CMS/HCC) History [...] Visit Diagnoses Diagnosis 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[place] artery of [place] heart with stable angina pectoris (HCC)- Primary History of coronary artery stent placement documented in this encounter Care Teams Shoe Dresser Relationship Specialty Start Date End Date Jhonatan Bellamy MD [address] [place] [address] PCP - General 03/25/15 04/16/18 documented as of this encounter
--- OUTSIDE RECORDS SUMMARY | 2024-08-24 04:51 | XMS_ITS | Encounter Summary ---
Author Organization [facility] Medical Group Address [address] [address] Care Team Providers Care Certification Engineer Name Role Phone Jhonatan Bellamy MD Primary Care Provider +1- [phone] Encounter Details Date Type Department Care Team (Late st Contact Info) Description 07/20/2017 Telephone [facility] [address] [address] Abelardo Petit MD 6810 [facility] [address] [address] Social History Tobacco Use Types Packs/Day Years Used Date Smoking Tobacco: Never Smokeless Tobacco: Former Alcohol Use Standard Drinks/Week Comments No 0 (1 standard drink = 0.6 oz pur e alcohol) Sex and Gender Information Value Date Recorded Sex Assigned at Not on file Legal Sex Male 3:42 AM DIRECT SUPPORT PROFESSIONAL CAREGIVER Gender Identity Not on file Sexual Orientation Not on file documented as of this encounter Miscellaneous Notes * Telephone Encounter - Lisa Diaz RN - 07/20/2017 2:49 PM CST Pt will call backw ith where to send his fitness for duty form. CT SUPPORT PROFESSIONAL CAREGIVER * Telephone Encounter - Lisa Diaz RN - 07/20/2017 2:48 PM CST told pt I have his daughter's FMLa paperwork for intermittent leave. Will complete and ffax as soonas possible. CT SUPPORT PROFESSIONAL CAREGIVER documented in this encounter Plan of Treatment Not on file documented as of this encounter Visit Diagnoses Not on filedocumented in this encounter Care Teams Certification Engineer Relationship Specialty Start Date End Date Jhonatan Bellamy MD [address] [place] [address] PCP - General 03/25/15 04/16/18 documented as of this encounter
--- OUTSIDE RECORDS SUMMARY | 2024-08-24 04:51 | XMS_ITS | Encounter Summary ---
Author Organization [facility] Medical Group Address [address] [address] Care Team Providers Care Fixture Fabricator Repairer Name Role Phone Jhonatan Bellamy MD Primary Care Provider +1- [phone] Encounter Details Date Type Department Care Team (Late st Contact Info) Description 08/28/2017 Telephone [facility] [address] [address] Abelardo Petit MD [address] [facility] [address] [address] Social History Tobacco Use Types Packs/Day Years Used Date Smoking Tobacco: Never Smokeless Tobacco: Former Alcohol Use Standard Drinks/Week Comments No 0 (1 standard drink = 0.6 oz pur e alcohol) Sex and Gender Information Value Date Recorded Sex Assigned at Not on file Legal Sex Male 3:42 AM TREE SURGEON HELPER Gender Identity Not on file Sexual Orientation Not on file documented as of this encounter Miscellaneous Notes * Telephone Encounter - Lisa Diaz RN - 08/28/2017 2:28 PM CST Told pt that paperwork will be at the front desk coordinator. SURGEON HELPER documented in this encounter Plan of Treatment Not on file documented as of this encounter Visit Diagnoses Not on filedocumented in this encounter Care Teams Fixture Fabricator Repairer Relationship Specialty Start Date End Date Jhonatan Bellamy MD [address] [place] [address] PCP - General 03/25/15 04/16/18 documented as of this encounter
--- OUTSIDE RECORDS SUMMARY | 2024-08-24 04:51 | XMS_ITS | Encounter Summary ---
Author Organization [facility] Medical Group Address [address] [address] Care Team Providers Care Community Outreach Specialist Name Role Phone Jhonatan Bellamy MD Primary Care Provider +1- [phone] Encounter Details Date Type Department Care Team (Late st Contact Info) Description 08/01/2017 Telephone [facility] [address] [address] Abelardo Petit MD 6810 [facility] [address] [address] Social History Tobacco Use Types Packs/Day Years Used Date Smoking Tobacco: Never Smokeless Tobacco: Former Alcohol Use Standard Drinks/Week Comments No 0 (1 standard drink = 0.6 oz pur e alcohol) Sex and Gender Information Value Date Recorded Sex Assigned at Not on file Legal Sex Male 3:42 AM POULTRY BUYER Gender Identity Not on file Sexual Orientation Not on file documented as of this encounter Miscellaneous Notes * Telephone Encounter - Lisa Diaz RN - 08/01/2017 10:07 AM CST Asked pt about the last date he worked to complete STD/LTD forms. TRY BUYER documented in this encounter Plan of Treatment Not on file documented as of this encounter Visit Diagnoses Not on filedocumented in this encounter Care Teams Community Outreach Specialist Relationship Specialty Start Date End Date Malench, Jhonatan E., MD [address] [place] [address] PCP - General 03/25/15 04/16/18 documented as of this encounter
--- OUTSIDE RECORDS SUMMARY | 2024-08-24 04:51 | XMS_ITS | Encounter Summary ---
Author Organization [facility] Address [address] [place] [address] Phone Care Team Providers Care Linoleum Floor Layer Name Role Phone Jhonatan Bellamy MD Primary Care Provider +1- [phone] Reason for Visit * Reason Onset Date Comments Prior Auth 01/25/2018 colchicine 0.6mg Encounter Details Date Type Department Care Team (Late st Contact Info) Description 01/25/2018 Telephone [facility] Rheumatology [address] [facility] Medicine 5th [place] [address] [place] [address] Miguel Pelletier MD [address] [place], [place] [id number] Prior Auth (colchicine 0.6mg) Social History Tobacco Use Types Packs/Day Years Used Date Smoking Tobacco: Never Smokeless Tobacco: Former Alcohol Use Standard Drinks/Week Comments No 0 (1 standard drink = 0.6 oz pur e alcohol) Sex and Gender Information Value Date Recorded Sex Assigned at Not on file Legal Sex Male 3:42 AM ROOMS DIRECTOR Gender Identity Not on file Sexual [...] IT. I DID NOT SEE IN THE [employer] SYSTEM. THANKS SO MUCH. * Telephone Encounter [...] Meyers BS - 02/02/2018 8:30 AM CDT JAGRTUI MESA, ?? MEDICAID IS INFORMED THAT MR. GARVIN HAS TRIED ALLOPURINOL. THE REP I SPOKE TO LAST WEEK ASKED FOR A LETTER FROM DR. PELLETIER STATING THE MEDICAL REASON WHY THE PT NEEDS TO BE ON COLCHICINE LONGER THAN 6 MONTHS. MR. GARVIN IS CURRENT[place] FOR ANOTHER 14 DAYS WITH THE TERM DATE ON 02/17/2018. ON HE WILL BE INSURED BY [employer] WHICH IS ANOTHER [place] MANAGED PLAN. SO WE WILL HAVE [...] MONTHS. MR. GARVIN IS CURRENT[place] FOR ANOTHER 14 DAYS WITH THE TERM DATE ON 02/17/2018. ON HE WILL BE INSURED BY [employer] WHICH IS ANOTHER [place] MEDICAID MANAGED PLAN. [...] on filedocumented in this encounter Care Teams Linoleum Floor Layer Relationship Specialty Start Date End Date Jhonatan Bellamy MD [address] [place] [address] PCP - General 03/25/15 04/16/18 documented as of this encounter
--- OUTSIDE RECORDS SUMMARY | 2024-08-24 04:51 | XMS_ITS | Encounter Summary ---
Author Organization [facility] Address [address] [place] [address] Phone Care Team Providers Care Personnel Assistant Name Role Phone Jhonatan Bellamy MD Primary Care Provider +1- [phone] Reason for Visit * Reason Onset Date Comments Prior Auth 01/23/2018 pa for Colcrys n eeded Encounter Details Date Type Department Care Team (Late st Contact Info) Description 01/23/2018 Telephone [facility] Scheduling [address] [place], [place] [phone] Karina Pelletier MD [address] [place], [place] [id number] Prior Auth (pa for Colcrys needed) Social History Tobacco Use Types Packs/Day Years Used Date Smoking Tobacco: Never Smokeless Tobacco: Former Alcohol Use Standard Drinks/Week Comments No 0 (1 standard drink = 0.6 oz pur e alcohol) Sex and Gender Information Value Date Recorded Sex Assigned at Not on file Legal Sex Male 3:42 AM PACKAGE CENTER SUPERVISOR Gender Identity Not on file Sexual Orientation Not on file documented as of this encounter Miscellaneous Notes * Telephone Encounter - Josselin Meyers BS - 01/25/2018 3:53 PM CDT SPOKE WITH MR. GARVIN AND SENT TASK TO DR. PELLETIER REGARDING COLCHICINE MEDICATION. Pt [place] 01/19/18-02/17/18. [place] [employer]ES EFFECTIVE ON [...] on filedocumented in this encounter Care Teams Personnel Assistant Relationship Specialty Start Date End Date Jhonatan Bellamy MD [address] [place] [address] PCP - General 03/25/15 04/16/18 documented as of this encounter
--- OUTSIDE RECORDS SUMMARY | 2024-08-24 04:51 | XMS_ITS | Encounter Summary ---
Author Organization [facility] Medical Group Address [address] [address] Care Team Providers Care Cleaning Team Member Name Role Phone Jhonatan Bellamy MD Primary Care Provider +1- [phone] Encounter Details Date Type Department Care Team (Late st Contact Info) Description 10/02/2017 Telephone [facility] [address] [address] Abelardo Petit MD 6810 [facility] [address] [address] Social History Tobacco Use Types Packs/Day Years Used Date Smoking Tobacco: Never Smokeless Tobacco: Former Alcohol Use Standard Drinks/Week Comments No 0 (1 standard drink = 0.6 oz pur e alcohol) Sex and Gender Information Value Date Recorded Sex Assigned at Not on file Legal Sex Male 3:42 AM COMMISSIONER OF INTERNAL REVENUE Gender Identity Not on file Sexual Orientation Not on file documented as of this encounter Miscellaneous Notes * Telephone Encounter - Lisa Diaz RN - 10/02/2017 4:49 PM CST Pt said he will come by tomorrow to peanut picker the note to take to HR so he can return to work with norestrictions. ISSIONER OF INTERNAL REVENUE * Telephone Encounter - Lissy Schneider MA - 10/02/2017 4:33 PM CST Spoke pt. Pt states that he spoke with Robin. Pt states that he would return to work on 10/10/17 and would like a call back from Robin. Pt would like note to say that he can return to work at full duty. ISSIONER OF INTERNAL REVENUE documented in this encounter Plan of Treatment Not on file documented as of this encounter Visit Diagnoses Not on filedocumented in this encounter Care Teams Cleaning Team Member Relationship Specialty Start Date End Date Jhonatan Bellamy MD [address] [place] [address] PCP - General 03/25/15 04/16/18 documented as of this encounter
--- OUTSIDE RECORDS SUMMARY | 2024-08-24 04:51 | XMS_ITS | Encounter Summary ---
Author Organization [facility] Medical Group Address [address] [address] Care Team Providers Care Railway Track Worker Name Role Phone Jhonatan Bellamy MD Primary Care Provider +1- [phone] Encounter Details Date Type Department Care Team (Late st Contact Info) Description 10/16/2017 Telephone [facility] [address] [address] Abelardo Petit MD [address] [facility] [address] [place] [address] Social History Tobacco Use Types Packs/Day Years Used Date Smoking Tobacco: Never Smokeless Tobacco: Former Alcohol Use Standard Drinks/Week Comments No 0 (1 standard drink = 0.6 oz pur e alcohol) Sex and Gender Information Value Date Recorded Sex Assigned at Not on file Legal Sex Male 3:42 AM BEVERAGE DISTILLER Gender Identity Not on file Sexual Orientation Not on file documented as of this encounter Miscellaneous Notes * Telephone Encounter - Lisa Diaz RN - 10/17/2017 8:[address] Marisabel LM for pt that his appointment has been rescheduled to March 28 at 8:30 RAGE DISTILLER * Telephone Encounter - Gaby Vergara - [...] he hears clarification as to when Dr Petit wants to see him again. RAGE DISTILLER documented in this encounter Plan of Treatment Not on file documented as of this encounter Visit Diagnoses Not on filedocumented in this encounter Care Teams Railway Track Worker Relationship Specialty Start Date End Date Jhonatan Bellamy MD [address] [place] [address] PCP - General 03/25/15 04/16/18 documented as of this encounter
--- OUTSIDE RECORDS SUMMARY | 2024-08-24 04:51 | XMS_ITS | Encounter Summary ---
Author Organization [facility] Address [address] [address] Care Team Providers Care Outside Sales Inspector Name Role Phone Jhonatan Bellamy MD Primary Care Provider +1- [phone] Encounter Details Date Type Department Care Team (Late st Contact Info) Description 11/09/2017 Telephone [facility] [address] [address] Abelardo Petit MD [address] [facility] [address] [address] Social History Tobacco Use Types Packs/Day Years Used Date Smoking Tobacco: Never Smokeless Tobacco: Former Alcohol Use Standard Drinks/Week Comments No 0 (1 standard drink = 0.6 oz pur e alcohol) Sex and Gender Information Value Date Recorded Sex Assigned at Not on file Legal 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 This patient was seen this morning in the hospital at [place]. He was admitted with some symptoms of shortness of breath and chest pain there were no new apparent cardiac problems and he is being discharged later today he does have significant renal failure with a creatinine of 2.9. His factory expert should be in charge of managing his [...] at his job and his contacted a critical systems technician. * Telephone Encounter - Gaby Anderson RN [...] ER with worsening symptoms. Advised contact his factory expert as well. We will call back with our recommendations but he may end up getting a quicker response from factory expert. Heverbalizes understanding. * Telephone Encounter - Angelita Mcgee - 11/09/2017 12:20 PM CDT Patient called office he is experiencing pain in chest and trouble breathing He states for a couple days documented in this encounter Plan of Treatment Not on file documented as of this encounter Visit Diagnoses Not on filedocumented in this encounter Care Teams Outside Sales Inspector Relationship Specialty Start Date End Date Jhonatan Bellamy MD [address] [place] [address] PCP - General 03/25/15 04/16/18 documented as of this encounter
--- OUTSIDE RECORDS SUMMARY | 2024-08-24 04:51 | XMS_ITS | Encounter Summary ---
Author Organization [facility] Address [address] [place] [address] Phone Care Team Providers Care Dump Operator Name Role Phone Jhonatan Bellamy MD Primary Care Provider +1- [phone] Reason for Visit * Reason Onset Date Comments Prior Auth 03/29/2018 PA needed for Ul oric Encounter Details Date Type Department Care Team (Late st Contact Info) Description 03/29/[address] 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
--- OUTSIDE RECORDS SUMMARY | 2024-08-24 04:51 | XMS_ITS | Encounter Summary ---
Author Organization [facility] Address [address] [facility] [address] [place] [address] Care Team Providers Care Director Of Marketing Analytics Name Role Phone Jhonatan Bellamy MD Primary Care Provider +1- [phone] Reason for Visit * Reason Comments Hospital Follow Up sob/chf Encounter Details Date Type Department Care Team (Late st Contact Info) Description 07/19/2017 10:15 AM CHEESE COOKER Office Visit [facility] [address] [address] Abelardo Petit MD 6810 [facility] [address] [address] History of coronary artery stent placement (Primary Dx); 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) Social History Tobacco Use Types Packs/Day Years Used Date Smoking Tobacco: Never Smokeless Tobacco: Former Alcohol Use Standard Drinks/Week Comments No 0 (1 standard drink = 0.6 oz pur e alcohol) Sex and Gender Information Value Date Recorded Sex Assigned at Not on file Legal Sex Male 3:42 AM CHEESE COOKER Gender Identity Not on file Sexual Orientation Not on file documented as of this encounter Last Filed Vital Signs Vital Sign Reading Time Taken Comments Blood Pressure 156/64 07/19/2017 10:34 AM CHEESE COOKER Pulse 69 07/19/2017 10:34 AM CHEESE COOKER Temperature - - Respiratory Rate - - Oxygen Saturation 98% 07/19/2017 10:34 AM CHEESE COOKER Inhaled Oxygen Concentration - - Weight 116.6 kg (257 lb) 07/19/2017 10:34 AM CHEESE COOKER Height 177.8 cm (5' 10 ) 07/19/2017 10:34 AM CHEESE COOKER Body Mass Index 36.88 07/19/2017 10:34 AM CHEESE COOKER documented in this encounter Progress Notes * [...] enzyme evidence of a non ST elevation [place]. He underwent catheterization and was found to have a high-grade stenosis in the distal right coronary artery bridging over the origin of his manager java lateral branch. He also has diffuse non flow limiting disease elsewhere. There shimon 80% ostial stenosis of a very small 1st marginal branch of his circumflex which is being treatedmedically. The patient's other comorbidities include hypertension advanced chronic kidney disease and longstanding diabetes. He has significant anemia of chronic disease as well. The patient was rehospitalized at [place] in April of 2017 with some dyspnea [...] again hospitalized for about a week at [place] with symptomatic shortness of breath and was [...] requires manual exertion. 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
--- OUTSIDE RECORDS SUMMARY | 2024-08-24 04:51 | XMS_ITS | Encounter Summary ---
Author Organization [facility] Address [address] [facility] [address] [place] [address] Care Team Providers Care Liver Trimmer Name Role Phone Aditya Castro MD Primary Care Provider [phone] Encounter Details Date Type Department Care Team (Late st Contact Info) Description 02/03/2020 Orders Only [facility] Cardiology [address] [facility] 162 [facility] [[email or web address] [address] [place] [address] Licha Hay, ROBERTO [address] [facility] 102 [place] [address] Social History Tobacco Use Types Packs/Day Years Used Date Smoking Tobacco: Never Smokeless Tobacco: Former Alcohol Use Standard Drinks/Week Comments No 0 (1 standard drink = 0.6 oz pur e alcohol) Sex and Gender Information Value Date Recorded Sex Assigned at Not on file Legal 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
--- OUTSIDE RECORDS SUMMARY | 2024-08-24 04:51 | XMS_ITS | Encounter Summary ---
Author Organization [facility] Address [address] [place] [address] Phone Care Team Providers Care Photographic Enlarger Operator Name Role Phone Jhonatan Bellamy MD Primary Care Provider [phone]- [phone] Encounter Details Date Type Department Care Team (Late st Contact Info) Description 03/15/2018 Orders Only [facility] Rheumatology [address] 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
--- OUTSIDE RECORDS SUMMARY | 2024-08-24 04:51 | XMS_ITS | Encounter Summary ---
Author Organization [facility] Address [address] [facility] [address] [place] [address] Care Team Providers Care Food Service Substitute Name Role Phone Jhonatan Bellamy MD Primary Care Provider [phone]- [phone] Reason for Visit * Reason Comments Follow-up Encounter Details Date Type Department Care Team (Late st Contact Info) Description 09/13/2017 9:00 AM GEOPHYSICAL COMPUTER Office Visit [facility] [address] [address] Abelardo Petit MD [address] [place] [id number] History of coronary artery stent placement (Primary Dx); Chronic kidney disease, stage III (moderate); 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[place] artery of [place] heart with stable angina pectoris (CMS/HCC) Social History Tobacco Use Types Packs/Day Years Used Date Smoking Tobacco: Never Smokeless Tobacco: Former Alcohol Use Standard Drinks/Week Comments No 0 (1 standard drink = 0.6 oz pur e alcohol) Sex and Gender Information Value Date Recorded Sex Assigned at Not on file Legal Sex Male 3:42 AM GEOPHYSICAL COMPUTER Gender Identity Not on file Sexual Orientation Not on file documented as of this encounter Last Filed Vital Signs Vital Sign Reading Time Taken Comments Blood Pressure 126/48 09/13/2017 8:59 AM GEOPHYSICAL COMPUTER Pulse 68 09/13/2017 8:59 AM GEOPHYSICAL COMPUTER Temperature - - Respiratory Rate - - Oxygen Saturation 98% 09/13/2017 8:59 AM GEOPHYSICAL COMPUTER Inhaled Oxygen Concentration - - Weight 117 kg (258 lb) 09/13/2017 8:59 AM GEOPHYSICAL COMPUTER Height 177.8 cm (5' 10 ) 09/13/2017 8:59 AM GEOPHYSICAL COMPUTER Body Mass Index 37.02 09/13/2017 8:59 AM GEOPHYSICAL COMPUTER documented in this encounter Progress Notes * [...] enzyme evidence of a non ST elevation [place]. He underwent catheterization in 5 of was found to have high-grade stenosis in the distal right coronary artery bridging over the origin of the founder and chief executive officer lateral branch. He also had diffuse non [...] stage III (moderate) 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[place] artery of [place] heart with stable angina pectoris ([facility]) PLAN/RECOMMENDATIONS For now no change in medical [...] him lose his job. Abelardo Petit MD HYSICAL COMPUTER documented in this encounter Plan of Treatment Not on file documented as of this encounter Visit Diagnoses Diagnosis History of coronary artery stent placement- Primary Chronic kidney disease, stage III (moderate) (HCC) Chronic kidney disease, Stage III (moderate) 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[place] artery of [place] heart with stable angina pectoris (HCC) documented in this encounter Care Teams Food Service Substitute Relationship Specialty Start Date End Date Jhonatan Bellamy MD [address] [place] [address] PCP - General 03/25/15 04/16/18 documented as of this encounter
--- OUTSIDE RECORDS SUMMARY | 2024-08-24 04:51 | XMS_ITS | Encounter Summary ---
Author Organization [facility] Address [address] [address] Care Team Providers Care Cable Installation Manager Name Role Phone Aditya Castro MD Primary Care Provider [phone] Encounter Details Date Type Department Care Team (Late st Contact Info) Description 06/03/2022 Orders Only [facility] Cardiology 6810 [facility] 162 [facility] 102 [place] [address] Abelardo Petit MD [address] [facility] [address] [facility] 102 [place] [address] Social History Tobacco Use Types [...] on file Legal 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 [place] [address] PCP - General 10/17/19 documented as of this encounter
--- OUTSIDE RECORDS SUMMARY | 2024-08-24 04:51 | XMS_ITS | Encounter Summary ---
Author Organization [facility] Address [address] [place] [address] Care Team Providers Care Felt Washing Machine Tender Name Role Phone Jhonatan Bellamy MD Primary Care Provider [phone]- [phone] Encounter Details Date Type Department Care Team (Latest Contact Info) Description 07/19/2017 6:30 PM BOOK SHELVER - 07/19/2017 7:02 PM BOOK SHELVER Hospital Encounter [facility] Narendra Hutchison Type 2 diabetes mellitus with hypoglycemia without coma (CMS/HCC); Heart failure (CMS/HCC); Other long term care pharmacist (current) drug therapy Social History Tobacco Use Types Packs/Day Years Used Date Smoking Tobacco: Never Smokeless Tobacco: Former Alcohol Use Standard Drinks/Week Comments No 0 (1 standard drink = 0.6 oz pur e alcohol) Sex and Gender Information Value Date Recorded Sex Assigned at Not on file Legal Sex Male 3:42 AM BOOK SHELVER Gender Identity Not on file Sexual Orientation Not on file documented as of this encounter Last Filed Vital Signs Vital Sign Reading Time Taken Comments Blood Pressure 131/67 07/19/2017 6:31 PM BOOK SHELVER Pulse 73 07/19/2017 6:31 PM BOOK SHELVER Temperature 36.6 ??C (97.9 ??F) 07/19/2017 6:31 PM CS T Respiratory Rate - - Oxygen Saturation 97% 07/19/2017 6:31 PM BOOK SHELVER Inhaled Oxygen Concentration - - Weight 112.9 kg (249 lb) 07/19/2017 6:31 PM BOOK SHELVER Height - - Body Mass Index 35.73 07/19/2017 10:34 AM BOOK SHELVER documented in this encounter Medications at Time of Discharge aspirin 81 mg enteric coated tabletIndications: Myocardial Reinfarction Prevention Take 1 tablet (81 mg total) by mouth daily 11/07/2013 nitroglycerin (NITROSTAT) 0.4 mg SL tabletIndications: Coronary artery disease involving [place] coronary artery of [place] heart, angina presence unspecified Place 1 tablet [...] Heart failure (HCC) Unspecified heart failure Other prison (current) drug therapy documented in this encounter Care Teams Felt Washing Machine Tender Relationship Specialty Start Date End Date Jhonatan Bellamy MD [address] [place] [address] PCP - General 03/25/15 04/16/18 documented as of this encounter
--- OUTSIDE RECORDS SUMMARY | 2024-08-24 04:51 | XMS_ITS | Encounter Summary ---
Author Organization [facility] Address [address] [address] Care Team Providers Care Radio Engineering Teacher Name Role Phone Jhonatan Bellamy MD Primary Care Provider +1- [phone] Encounter Details Date Type Department Care Team (Late st Contact Info) Description 08/15/2017 Telephone [facility] [address] [address] Abelardo Petit MD 6810 [facility] [address] [address] Social History Tobacco Use Types Packs/Day Years Used Date Smoking Tobacco: Never Smokeless Tobacco: Former Alcohol Use Standard Drinks/Week Comments No 0 (1 standard drink = 0.6 oz pur e alcohol) Sex and Gender Information Value Date Recorded Sex Assigned at Not on file Legal Sex Male 3:42 AM LAMINATOR Gender Identity Not on file Sexual Orientation [...] hospital over [place], he insisted on leaving. NATOR documented in this encounter Plan of Treatment Not on file documented as of this encounter Visit Diagnoses Not on filedocumented in this encounter Care Teams Radio Engineering Teacher Relationship Specialty Start Date End Date Jhonatan Bellamy MD [address] [place] [address] PCP - General 03/25/15 04/16/18 documented as of this encounter
--- OUTSIDE RECORDS SUMMARY | 2024-08-24 04:51 | XMS_ITS | Encounter Summary ---
Author Organization [facility] Healthcare Address [address] [place] [address] Care Team Providers Care Window And Door Installer Name Role Phone Aditya Castro MD Primary Care Provider [phone] Encounter Details Date Type Department Care Team (Latest Contact Info) Description 10/23/2019 9:45 AM NORMALIZER - 10/23/2019 3:32 PM NORMALIZER Hospital Encounter [facility] Saulo Dockery MD [address] [place] [address] Discharge Disposition: Discharge to home or self care Social History Tobacco Use Types Packs/Day Years Used Date Smoking Tobacco: Never Smokeless Tobacco: Former Alcohol Use Standard Drinks/Week Comments No 0 (1 standard drink = 0.6 oz pur e alcohol) Sex and Gender Information Value Date Recorded Sex Assigned at Not on file Legal Sex Male 3:42 AM NORMALIZER Gender Identity Not on file Sexual Orientation Not on file documented as of this encounter Last Filed Vital Signs Vital Sign Reading Time Taken Comments Blood Pressure 159/70 10/23/2019 9:54 AM NORMALIZER Pulse 55 10/23/2019 9:54 AM NORMALIZER Temperature 36.6 ??C (97.8 ??F) 10/23/2019 9:54 AM CS T Respiratory Rate - - Oxygen Saturation 96% 10/23/2019 9:54 AM NORMALIZER Inhaled Oxygen Concentration - - Weight 121.3 kg (267 lb 8 oz) 10/23/2019 9:54 AM NORMALIZER Height 177.8 cm (5' 10 ) 10/23/2019 9:54 AM NORMALIZER Body Mass Index 38.38 10/23/2019 9:54 AM NORMALIZER documented in this encounter Medications at Time [...] on filedocumented in this encounter Care Teams Window And Door Installer Relationship Specialty Start Date End Date Aditya Castro MD [address] [facility] [place] [address] PCP - General 10/17/19 documented as of this encounter
--- OUTSIDE RECORDS SUMMARY | 2024-08-24 04:51 | XMS_ITS | Encounter Summary ---
Author Organization [facility] Address [address] [place] [address] Phone Care Team Providers Care Coal Carrier Name Role Phone Jhonatan Bellamy MD Primary Care Provider +1- [phone] Encounter Details Date Type Department Care Team (Late st Contact Info) Description 04/03/2018 Telephone [facility] Rheumatology [address] [facility] Advanced Medicine 5th [place] [address] [place] [address] Evangelista Sifuentes LPN Social History Tobacco Use Types Packs/Day Years Used Date Smoking Tobacco: Never Smokeless Tobacco: Former Alcohol Use Standard Drinks/Week Comments No 0 (1 standard drink = 0.6 oz pur e alcohol) Sex and Gender Information Value Date Recorded Sex Assigned at Not on file Legal Sex Male 3:42 AM SHANK CUTTER Gender Identity Not on file Sexual [...] 11:28 AM CDT Couldn't reach him - [facility] takes his insurance as we discussed. Was he able to get an appointment there? * Telephone Encounter - Evangelista Sifuentes LPN - 04/03/2018 11:12 AM CDT Hey, I spoke with this patient. He said he has been without his medications for 2 months. He has switched his insurance to [employer] which we don't accept (he is aware). We have sent a message to [facility] if we can get his medication approved. He said he has been having a lot of pain due to his lackof medication. documented in this encounter Plan of Treatment Not on file documented as of this encounter Visit Diagnoses Not on filedocumented in this encounter Care Teams Coal Carrier Relationship Specialty Start Date End Date Jhonatan Bellamy MD [address] [place] [address] PCP - General 03/25/15 04/16/18 documented as of this encounter
--- OUTSIDE RECORDS SUMMARY | 2024-08-24 04:51 | XMS_ITS | Encounter Summary ---
Author Organization [facility] Address [address] [place] [address] Phone Care Team Providers Care Roller Man Name Role Phone Jhonatan Bellamy MD Primary Care Provider [phone]- [phone] Encounter Details Date Type Department Care Team (Late st Contact Info) Description 03/22/2018 Orders Only [facility] Rheumatology [address] [facility] Advanced Medicine 5th [place] [address] [place] [address] Karina Johnson MD [address] [place], [place] [id number] Social History Tobacco Use Types Packs/Day Years Used Date Smoking Tobacco: Never Smokeless Tobacco: Former Alcohol Use Standard Drinks/Week Comments No 0 (1 standard drink = 0.6 oz pur e alcohol) Sex and Gender Information Value Date Recorded Sex Assigned at Not on file Legal Sex Male 3:42 AM ICT BUSINESS ANALYST Gender Identity Not on file Sexual [...] on filedocumented in this encounter Care Teams Roller Man Relationship Specialty Start Date End Date Jhonatan Bellamy MD [address] [place] [address] PCP - General 03/25/15 04/16/18 documented as of this encounter
--- OUTSIDE RECORDS SUMMARY | 2024-08-24 04:51 | XMS_ITS | Encounter Summary ---
Author Organization [facility] Healthcare Address [address] [place] [address] Care Team Providers Care Manager Cargo Name Role Phone Jhonatan Bellamy MD Primary Care Provider +1- [phone] Encounter Details Date Type Department Care Team (Latest Contact Info) Description 09/19/2017 1:57 PM CRACKING AND FANNING MACHINE OPERATOR - 09/19/2017 7:29 PM CRACKING AND FANNING MACHINE OPERATOR Hospital Encounter [facility] Emergency Department [address] [place] [address] Refugio Nieves MD PhD [address] [facility] [address] [place] [address] Discharge Disposition: Discharge to home or self care Social History Tobacco Use Types Packs/Day Years Used Date Smoking Tobacco: Never Smokeless Tobacco: Former Alcohol Use Standard Drinks/Week Comments No 0 (1 standard drink = 0.6 oz pur e alcohol) Sex and Gender Information Value Date Recorded Sex Assigned at Not on file Legal Sex Male 3:42 AM CRACKING AND FANNING MACHINE OPERATOR Gender Identity Not on file Sexual Orientation Not on file documented as of this encounter Medications at Time of Discharge aspirin 81 mg enteric coated tabletIndications: Myocardial Reinfarction Prevention Take 1 tablet (81 mg total) by mouth daily 11/07/2013 nitroglycerin (NITROSTAT) 0.4 mg SL tabletIndications: Coronary artery disease involving curyung coronary artery of curyung heart, angina presence unspecified Place 1 tablet [...] Comments GLUCOSE POC Routine 09/19/2017 4:06 PM CRACKING AND FANNING MACHINE OPERATOR GLUCOSE POC Routine 09/19/2017 3:00 PM CRACKING AND FANNING MACHINE OPERATOR DISCHARGE LABORATORY CUMULATIVE REPORT 09/19/2017 12:00 AM CRACKING AND FANNING MACHINE OPERATOR documented in this encounter Results * (ABNORMAL) Glucose POC (09/19/2017 4:06 PM CRACKING AND FANNING MACHINE OPERATOR) [facility] Glucose, POC 301(H) 70 - 199 mg/dL ALESSANDRA COLE Comment: Interpretive Data Glucose is assumed to be non-fasting. Fasting Glucose reference ranges are: 0 - 150 years: ??70 mg/dL - 99 mg/dL Current interpretive data was last revised on 2014. Glucose comment 1 RN/MD Notified ALESSANDRA COLE Blood specimen (specimen) 09/19/2017 4:06 PM CRACKING AND FANNING MACHINE OPERATOR 09/19/2017 4:06 PM CRACKING AND FANNING MACHINE OPERATOR Narrative ALESSANDRA COLE - 09/19/2017 4:11 PM CRACKING AND FANNING MACHINE OPERATOR us Refugio Nieves MD PhD POINT OF CARE TEST OR DERABLES Final Result ALESSANDRA C[facility]ION[facility] [address] [facility] [address] * (ABNORMAL) Glucose POC (09/19/2017 3:00 PM CRACKING AND FANNING MACHINE OPERATOR) Glucose, POC 407(C) 70 - 199 mg/dL ALESSANDRA COLE Comment: Interpretive Data Glucose is assumed to be non-fasting. Fasting Glucose reference ranges are: 0 - 150 years: ??70 mg/dL - 99 mg/dL Current interpretive data was last revised on 2014. Glucose comment 1 RN/MD Notified ALESSANDRA COLE Blood specimen (specimen) 09/19/2017 3:00 PM CRACKING AND FANNING MACHINE OPERATOR 09/19/2017 3:00 PM CRACKING AND FANNING MACHINE OPERATOR Narrative ALESSANDRA KELSEY - 09/19/2017 3:01 PM CRACKING AND FANNING MACHINE OPERATOR us Refugio Nieves MD PhD POINT OF CARE TEST OR DERABLES Final Result ALESSANDRA [facility]ION[facility] [address] [facility]. [place] [address] * DISCHARGE LABORATORY CUMULATIVE REPORT (09/19/2017 12:00 AM CRACKING AND FANNING MACHINE OPERATOR) Narrative 09/19/2017 12:00 AM CRACKING AND FANNING MACHINE OPERATOR Ordered by an unspecified provider. us Historical Provider LAB BLOOD ORDERABLES Ann Marie l Result documented in this encounter Visit Diagnoses Not on filedocumented in this encounter Care Teams Manager Cargo Relationship Specialty Start Date End Date Jhonatan Bellamy MD [address] [place], [place] [id number] PCP - General 03/25/15 04/16/18 documented as of this encounter
--- OUTSIDE RECORDS SUMMARY | 2024-08-24 04:51 | XMS_ITS | Encounter Summary ---
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 He underwent catheterization in 5 of was found to have high-grade stenosis in the distal right coronary artery bridging over the origin of the internet programmer lateral branch. 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
--- OUTSIDE RECORDS SUMMARY | 2024-08-24 04:51 | XMS_ITS | Encounter Summary ---
Author Organization [facility] Medical Group Address [address] [address] Care Team Providers Care Cafe Lead Name Role Phone Jhonatan Bellamy MD Primary Care Provider +1- [phone] Encounter Details Date Type Department Care Team (Late st Contact Info) Description 07/31/2017 Telephone [facility] [address] [address] Abelardo Petit MD [address] [facility] [address] [address] Social History Tobacco Use Types Packs/Day Years Used Date Smoking Tobacco: Never Smokeless Tobacco: Former Alcohol Use Standard Drinks/Week Comments No 0 (1 standard drink = 0.6 oz pur e alcohol) Sex and Gender Information Value Date Recorded Sex Assigned at Not on file Legal Sex Male 3: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 Gave authorization to refill furosemide 40 mg twice daily, #60 with 5 additional refills. OR SOFTWARE QUALITY ENGINEER * Telephone Encounter - Elsie Holly RN - 07/31/2017 4:09 PM SENIOR SOFTWARE QUALITY ENGINEER Will forward to MA's OR SOFTWARE QUALITY ENGINEER documented in this encounter Plan of Treatment Not on file documented as of this encounter Visit Diagnoses Not on filedocumented in this encounter Care Teams Cafe Lead Relationship Specialty Start Date End Date Jhonatan Bellamy MD [address] [place] [address] PCP - General 03/25/15 04/16/18 documented as of this encounter
--- OUTSIDE RECORDS SUMMARY | 2024-08-24 04:51 | XMS_ITS | Encounter Summary ---
Author Organization [facility] Address [address] [address] Care Team Providers Care Curriculum Writer Name Role Phone Jhonatan Bellamy MD Primary Care Provider +1- [phone] Encounter Details Date Type Department Care Team (Late st Contact Info) Description 01/22/2018 Telephone [facility] [address] [address] Abelardo Petit MD [address] [facility] [address] [address] Social History Tobacco Use Types Packs/Day Years Used Date Smoking Tobacco: Never Smokeless Tobacco: Former Alcohol Use Standard Drinks/Week Comments No 0 (1 standard drink = 0.6 oz pur e alcohol) Sex and Gender Information Value Date Recorded Sex Assigned at Not on file Legal 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 Please cb [phone] documented in this encounter Plan of Treatment Not on file documented as of this encounter Visit Diagnoses Not on filedocumented in this encounter Care Teams Curriculum Writer Relationship Specialty Start Date End Date Jhonatan Bellamy MD [place] [address] PCP - General 03/25/15 04/16/18 documented as of this encounter
--- OUTSIDE RECORDS SUMMARY | 2024-08-24 04:51 | XMS_ITS | Encounter Summary ---
Author Organization [facility] Medical Group Address [address] [facility] [address] [place] [address] Care Team Providers Care Wood Products Manufacturer Name Role Phone Aditya Castro MD Primary Care Provider [phone] Encounter Details Date Type Department Care Team (Late st Contact Info) Description 12/09/2021 Orders Only [facility] Cardiology [address] [facility] 162 [facility] [address] [place] [address] Abelardo Petit MD [address] [facility] [address] [place] [address] Social History Tobacco Use Types [...] on file Legal Sex Male 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 [place] [address] PCP - General 10/17/19 documented as of this encounter
--- OUTSIDE RECORDS SUMMARY | 2024-08-24 04:51 | XMS_ITS | Encounter Summary ---
Author Organization [facility] Medical [facility] Address [address] [address] Care Team Providers Care Physiologist Name Role Phone Jhonatan Bellamy MD Primary Care Provider +1- [phone] Encounter Details Date Type Department Care Team (Late st Contact Info) Description 07/25/2017 Telephone [facility] [address] [phone] Abelardo Petit MD [address] [facility] [address] [address] Social History Tobacco Use Types Packs/Day Years Used Date Smoking Tobacco: Never Smokeless Tobacco: Former Alcohol Use Standard Drinks/Week Comments No 0 (1 standard drink = 0.6 oz pur e alcohol) Sex and Gender Information Value Date Recorded Sex Assigned at Not on file Legal Sex Male 3:42 AM SHOE SINGER Gender Identity Not on file Sexual Orientation Not on file documented as of this encounter Miscellaneous Notes * Telephone Encounter - Lisa Diaz RN - 07/25/2017 11:04 AM CST told pt that RTW note will be at the manager desktop for pickup. SINGER * Telephone Encounter - Constance Magana MA - 07/25/2017 10:40 AM SHOE SINGER Pt calling about fitness for duty form, wants to come by and pick it up, and wants to know if he has any restrictions, pt can be reached at [phone] SINGER documented in this encounter Plan of Treatment Not on file documented as of this encounter Visit Diagnoses Not on filedocumented in this encounter Care Teams Physiologist Relationship Specialty Start Date End Date Jhonatan Bellamy MD [address] [place] [place], [place] [id number] PCP - General 03/25/15 04/16/18 documented as of this encounter
--- OUTSIDE RECORDS SUMMARY | 2024-08-24 04:51 | XMS_ITS | Encounter Summary ---
Author Organization [facility] Address [address] [address] Care Team Providers Care It Security Analyst Name Role Phone Jhonatan Bellamy MD Primary Care Provider +1- [phone] Encounter Details Date Type Department Care Team (Late st Contact Info) Description 08/03/2017 Telephone [facility] [address] [address] Abelardo Petit MD 68[address] [facility] [address] [address] Social History Tobacco Use Types Packs/Day Years Used Date Smoking Tobacco: Never Smokeless Tobacco: Former Alcohol Use Standard Drinks/Week Comments No 0 (1 standard drink = 0.6 oz pur e alcohol) Sex and Gender Information Value Date Recorded Sex Assigned at Not on file Legal 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 COACHING documented in this encounter Plan of Treatment Not on file documented as of this encounter Visit Diagnoses Not on filedocumented in this encounter Care Teams It Security Analyst Relationship Specialty Start Date End Date Jhonatan Bellamy MD [address] [place] [address] PCP - General 03/25/15 04/16/18 documented as of this encounter
--- OUTSIDE RECORDS SUMMARY | 2024-08-24 04:51 | XMS_ITS | Encounter Summary ---
Author Organization [facility] Address [address] [address] Care Team Providers Care Fire Control System Installer Name Role Phone Jhonatan Bellamy MD Primary Care Provider +1- [phone] Encounter Details Date Type Department Care Team (Late st Contact Info) Description 08/22/2017 Telephone [facility] [address] [address] Abelardo Petit MD 6810 [facility] [address] [address] Social History Tobacco Use Types Packs/Day Years Used Date Smoking Tobacco: Never Smokeless Tobacco: Former Alcohol Use Standard Drinks/Week Comments No 0 (1 standard drink = 0.6 oz pur e alcohol) Sex and Gender Information Value Date Recorded Sex Assigned at Not on file Legal Sex Male 3:42 AM CONSULTANT INTERNSHIP Gender Identity Not on file Sexual Orientation Not on file documented as of this encounter Miscellaneous Notes * Telephone Encounter - Lisa Diaz RN - 08/22/2017 2:22 PM CST Pt igor that HR did not receive his forms. todl pt that we will refax them. ULTANT INTERNSHIP * Telephone Encounter - Lisa Diaz RN - 08/22/2017 11:31 AM CST Pt notified that forms were completed and faxed last week. ULTANT INTERNSHIP documented in this encounter Plan of Treatment Not on file documented as of this encounter Visit Diagnoses Not on filedocumented in this encounter Care Teams Fire Control System Installer Relationship Specialty Start Date End Date Jhonatan Bellamy MD [address] [place] [address] PCP - General 03/25/15 04/16/18 documented as of this encounter
--- OUTSIDE RECORDS SUMMARY | 2024-08-24 04:52 | XMS_ITS | Encounter Summary ---
Author Organization [facility] Medical Group Address [address] [address] Care Team Providers Care Carbon Cleaner Name Role Phone Jhonatan Bellamy MD Primary Care Provider +1- [phone] Encounter Details Date Type Department Care Team (Late st Contact Info) Description 05/01/2017 Telephone [facility] [address] [place] [address] Myrna Easton NP 6810 [facility] [address] 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 Pt has appt with [facility] next week on May 11 . Told patient that RTW date will determined at that time. Patient said that they need clinical information sent also. Told patient that is an odd request, usually [facility] faxes a form for completion or requests the needed info in writing, Pt did not havethe name of the person he spoke to at [facility], said it was an unusual name . Told patient to have [facility] fax a request for the needed info to make teresa ewe are supplying the appropriate information . Patient agreeable. documented in this encounter Plan of Treatment Not on file documented as of this encounter Visit Diagnoses Not on filedocumented in this encounter Care Teams Carbon Cleaner Relationship Specialty Start Date End Date Jhonatan Bellamy MD [address] [place] [address] PCP - General 03/25/15 04/16/18 documented as of this encounter
--- OUTSIDE RECORDS SUMMARY | 2024-08-24 04:52 | XMS_ITS | Encounter Summary ---
Author Organization [facility] Medical Group Address [address] [facility] [address] [place] [address] Care Team Providers Care Landcare Officer Name Role Phone Jhonatan Bellamy MD Primary Care Provider +1- [phone] Reason for Visit * Reason Comments Follow-up 2-3 week follow up o n CAD Encounter Details Date Type Department Care Team (Late st Contact Info) Description 05/23/2017 9:45 AM CDT Office Visit [facility] [address] [place] [address] Abelardo Petit MD [address] [facility] [address] [id number] 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[place] artery of [place] heart with stable angina pectoris (CMS/HCC) (Primary [...] file Legal Sex Male 3: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 He underwent catheterization and was found to have a high-grade stenosis in the distal right coronary artery bridging over the origin of his environmental law professor lateral branch. He also has diffuse non flow limiting disease elsewhere. There shimon 80% ostial stenosis of a very small 1st marginal branch of his circumflex which is being treatedmedically. The patient's other comorbidities include hypertension advanced chronic kidney disease and longstanding diabetes. He has significant anemia of chronic disease as well. The patient was rehospitalized at [place] in April of 2017 with some dyspnea [...] work. 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
--- OUTSIDE RECORDS SUMMARY | 2024-08-24 04:52 | XMS_ITS | Encounter Summary ---
Author Organization [facility] Care Team Providers Care Job Recruiter Name Role Phone Unavailable Primary Care Provider Unavailabl e Encounter Details Date Type Department Care Team (Late st Contact Info) Description 02/03/2015 - 02/03/2015 11:59 PM CDT [facility] [place] [address] [place] [address] Pain in soft tissues of limb Social History Tobacco Use Types Packs/Day Years Used Date Smoking Tobacco: Never Assessed Sex and Gender Information Value Date Recorded Sex Assigned at Not on file Legal Sex Male 3:42 AM COMMUNITY RELATIONS SPECIALIST Gender Identity Not on file Sexual [...] Ann Marie l Result Performing Organization Address City/[facility] [employer] [facility] Phone Number HISTORICAL RESULTS * (ABNORMAL) Plasma phosphorus (02/03/2015 10:35 AM CDT) Phosphorus, pl 5.2(H) 2.3 - 4.3 mg/dl HISTORICAL RESULTS Plasma 02/03/2015 10:3 5 AM CDT Narrative HISTORICAL RESULTS - 02/03/2015 12:32 PM CDT Client / Account bill? No Client Account Number and Description: Byron Castillo MD LAB BLOOD ORDERABLES Ann Marie l Result Performing Organization Address [facility] de Phone Number HISTORICAL RESULTS * (ABNORMAL) Serum uric acid (02/03/2015 10:35 AM CDT) Uric acid 11.3(H) 3.0 - 8.0 mg/dl HISTORICAL RESULTS Serum 02/03/2015 10:3 5 AM CDT Narrative HISTORICAL RESULTS - 02/03/2015 12:32 PM CDT Client / Account bill? No Client Account Number and Description: Byron Castillo MD LAB BLOOD ORDERABLES Ann Marie l Result Performing Organization Address [facility] [employer] Phone Number HISTORICAL RESULTS [...] factor quantitative (02/03/2015 10:35 AM CDT) Pathologist [facility] Rheumatoid factor, quant <10 0 - 15 IUnits/ml HISTORICAL RESULTS Serum 02/03/2015 10:3 5 AM CDT Narrative HISTORICAL RESULTS - 02/04/2015 3:38 AM CDT Client / Account bill? No Client Account Number and Description: Byron Castillo MD LAB BLOOD ORDERABLES Ann Marie l Result Performing Organization Address City/[facility] [employer] Phone Number HISTORICAL RESULTS * Serum cyclic citrullinated peptide IgG 3rd generation (02/03/2015 10:35 AM CDT) Pathologist [facility] CCP3 IgG <15.6 0.0 - 19.0 units HISTORICAL RESULTS Comment: Interpretive Data The following results were obtained with the BEK[employer] Quanta Lite CCP3 IgG ABRAHAM. ??Anti-CCP values [...]
--- OUTSIDE RECORDS SUMMARY | 2024-08-24 04:52 | XMS_ITS | Encounter Summary ---
Author Organization [facility] Address [address] [facility] [address] [place] [id number] Care Team Providers Care Zipper Setter Name Role Phone Jhonatan Bellamy MD Primary Care Provider [phone] Reason for Visit * Reason Comments Hospital Follow Up 2 wk f/u Encounter Details Date Type Department Care Team (Late st Contact Info) Description 05/04/2017 1:30 PM CDT Office Visit [facility] [address] [id number] Myrna Easton NP [address] [facility] [address] [address] Coronary artery disease involving [place] coronary artery of [place] heart, angina presence unspecified (Primary Dx); Status [...] on file Legal Sex Male 3:42 AM [employer] Gender Identity Not on file Sexual Orientation [...] mg SL tabletIndications: Coronary artery disease involving [place] coronary artery of [place] heart, angina presence unspecified Place 1 tablet [...] vein DVT on 03/08/2017. He presented to [facility] on 04/15/[address] elevation [place]. He proceeded to the cathode ray tube assembler with Dr. Petit. He had a high-grade [...] problems aside from that. He saw his tube sorter Dr. Reyes on 04/25/2017. He was given [...] communicating with each other. 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 He is and has 2 children. Records Reviewed this visit: Most recent [facility] admission records including cardiology consultation, cath report, [...] this visit: 1. Coronary artery disease involving [place] coronary artery of [place] heart, angina presence unspecified (Primary) - nitroglycerin [...] would prefer to discuss this with his tube sorter. I told the patient and his mother [...] 35 minutes visit were spent in direct [id number] consultation with the patient and his mother answering their questions, discussing his symptoms and course of treatment. 05/05/2017 Addendum: This morning I called the office of tube sorter Dr. Reyes and relayed a message to [...] Visit Diagnoses Diagnosis Coronary artery disease involving [place]gmi[place] coronary artery of [place] heart, angina presence unspecified- Primary Status post [...] 05/23/2017 added in this encounter Care Teams Zipper Setter Relationship Specialty Start Date End Date Jhonatan Bellamy MD [address] [place] [address] PCP - General 03/25/15 04/16/18 documented as of this encounter
--- OUTSIDE RECORDS SUMMARY | 2024-08-24 04:52 | XMS_ITS | Encounter Summary ---
Author Organization [facility] Healthcare Address [address] [place] [address] Care Team Providers Care Flame Planer Name Role Phone Jhonatan Bellamy MD Primary Care Provider [phone]- [phone] Encounter Details Date Type Department Care Team (Latest Contact Info) Description 03/21/2017 6:43 AM CDT - 03/24/2017 7:37 PM CDT Hospital Encounter [facility] ADMIT [address] [place] [address] Eloise Coulter MD [address] [place], [place] [id number] Discharge Disposition: Discharge to home or self care Social History Tobacco Use Types Packs/Day Years Used Date Smoking Tobacco: Never Assessed Sex and Gender Information Value Date Recorded Sex Assigned at Not on file 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 Gender Identity Not on file Sexual [...] Glucose POC (03/24/2017 1:42 PM CDT) Pathologist [facility] Glucose, POC 121 70 - 199 mg/dL [facility] Blood specimen (specimen) 03/24/2017 1:42 PM CDT 03/24/2017 1:42 PM CDT Eloise Coulter MD POINT OF CARE TEST ORDERABLES Final Result Performing Organization Address [facility] de Phone Number [facility] [place] [address] * Glucose POC (03/24/2017 1:07 PM CDT) Glucose, POC 95 70 - 199 mg/dL [facility] Blood specimen (specimen) 03/24/2017 1:07 PM CDT 03/24/2017 1:07 PM CDT Eloise Coulter MD POINT OF CARE TEST ORDERABLES Final Result Performing Organization Address [facility] de Phone Number [facility] [place] [place] [address] * Glucose POC (03/24/2017 12:48 PM CDT) Glucose, POC 81 70 - 199 mg/dL [facility] Blood specimen (specimen) 03/24/2017 12:48 PM CDT 03/24/2017 12:48 PM CDT Eloise Coulter MD POINT OF CARE TEST ORDERABLES Final Result Performing Organization Address [facility] [place] [address] * (ABNORMAL) Glucose POC (03/24/2017 12:22 PM CDT) Glucose, POC 54(L) 70 - 199 mg/dL [facility] Blood specimen (specimen) 03/24/2017 12:22 PM CDT 03/24/2017 12:22 PM CDT us Eloise Coulter MD POINT OF CARE TEST ORDERABLES Final Result Performing Organization Address City/[facility] Co de Phone Number [facility] [place] [address] * (ABNORMAL) Glucose POC (03/24/2017 7:57 AM CDT) Glucose, POC 231(H) 70 - 199 mg/dL [facility] Blood specimen (specimen) 03/24/2017 7:57 AM CDT 03/24/2017 7:57 AM CDT us Eloise Coulter MD POINT OF CARE TEST ORDERABLES Final Result Performing Organization Address [facility] de Phone Number [facility] [place] [address] * (ABNORMAL) Glucose POC (03/24/2017 3:12 AM CDT) Glucose, POC 262(H) 70 - 199 mg/dL [facility] Blood specimen (specimen) 03/24/2017 3:12 AM CDT 03/24/2017 3:12 AM CDT us Eloise Coulter MD POINT OF CARE TEST ORDERABLES Final Result Performing Organization Address [facility] Co de Phone Number [facility] Department [place] [address] * (ABNORMAL) Glucose POC (03/24/2017 1:35 AM CDT) Glucose, POC 291(H) 70 - 199 mg/dL [facility] Blood specimen (specimen) 03/24/2017 1:35 AM CDT 03/24/2017 1:35 AM CDT us Eloise Coulter MD POINT OF CARE TEST ORDERABLES Final Result Performing Organization Address City/[facility]/ZIP Co de Phone Number [facility] [place] [address] * DISCHARGE LABORATORY CUMULATIVE REPORT (03/24/2017 12:00 AM CDT) Narrative 03/24/2017 12:00 AM CDT Ordered by an unspecified provider. us Historical Provider LAB BLOOD ORDERABLES Ann Marie l Result * (ABNORMAL) Glucose POC (03/23/2017 11:23 PM CDT) Glucose, POC 324(H) 70 - 199 mg/dL [facility] Blood specimen (specimen) 03/23/2017 11:23 PM CDT 03/23/2017 11:23 PM CDT Eloise Coulter MD POINT OF CARE TEST ORDERABLES Final Result Performing Organization Address City/State/[facility] Co de Phone Number [facility] [place] [address] * US Guided Needle Placement (03/23/2017 9:42 PM CDT) Anatomical Region Laterality Modality Entire body N/A Ultrasound 03/23/2017 9:42 PM CDT Narrative 03/23/2017 9:42 PM CDT ALMA KUMAR M.D. FINAL REPORT ACC# ??Date Time ??Exam [id number] Mar 23, 2017 16:42:00 [id number] Muscle BX Perc soft tissue [id number] Mar 23, 2017 16:42:00 [id number] ([facility]) US Needle Guide EXAMINATION: ?Left third [...] was obtained. ??Prior to beginning the procedure, [place] Protocol was performed to confirm the patient? [...] ALMA KUMAR M.D. on Mar ??2016 ??5:28P [id number] Procedure Note Miscellaneous, Not In File - 03/23/2017 ALMA KUMAR M.D. FINAL REPORT ACC# Date Time Exam [id number] Mar 23, 2017 16:42:00 [id number] Muscle BX Perc soft tissue [id number] Mar 23, 2017 16:42:00 [id number] [place] Needle Guide EXAMINATION: Left third finger [...] was obtained. Prior to beginning the procedure, [place] Protocol was performed to confirm the patient? [...] KUMAR M.D. on Mar 23 2017 5:28P [id number] us Not In File Miscellaneous IMG US PROCEDURES Ann Marie l Result * Needle Biopsy Soft Tissue Mass (03/23/2017 9:42 PM CDT) Anatomical Region Laterality Modality Body N/A X-Ray Angiograph y 03/23/2017 9:42 PM CDT Narrative 03/23/2017 9:42 PM CDT ALMA KUMAR M.D. FINAL REPORT ACC# ??Date Time ??Exam [id number] Mar 23, 2017 16:42:00 [id number] Muscle BX Perc soft tissue [id number] Mar 23, 2017 16:42:00 [id number] ([facility]) US Needle Guide EXAMINATION: ?Left third [...] was obtained. ??Prior to beginning the procedure, [place] Protocol was performed to confirm the patient? [...] ALMA KUMAR M.D. on Mar ??2016 ??5:28P [id number] Procedure Note Miscellaneous, Not In File / Provider, MD Zev - 03/23/2017 ALMA KUMAR M.D. FINAL REPORT ACC# Date Time Exam [id number] Mar 23, 2017 16:42:00 [id number] Muscle BX Perc soft tissue [id number] Mar 23, 2017 16:42:00 [id number] ([facility]) US Needle Guide EXAMINATION: Left third [...] was obtained. Prior to beginning the procedure, [place] Protocol was performed to confirm the patient? [...] KUMAR M.D. on Mar 23 2017 5:28P [id number] us Not In File Miscellaneous IMG IR PROCEDURES Ann Marie l Result * (ABNORMAL) Basic metabolic panel (03/23/2017 9:30 PM CDT) Sodium 133(L) 135 - 145 mmol/L [facility] Potassium, pl 5.4(H) 3.3 - 4.9 mmol/L [facility] Chloride 100 97 - 110 mmol/L [facility] CO2 23 22 - 32 mmol/L [facility] BUN 48(H) 8 - 25 mg/dL [facility] Glucose 356(H) 70 - 199 mg/dL [facility] Creatinine 1.96(H) 0.80 - 1.30 mg/dL [facility] Calcium 9.0 8.5 - 10.3 mg/dL [facility] Anion gap 10 2 - 15 mmol/L [facility] Blood specimen (specimen) 03/23/2017 9:30 PM CDT 03/23/2017 10:14 PM CDT Darnell Tesfaye LAB BLOOD ORDERABLES Final Result Performing Organization Address City/State/[facility] Co de Phone Number [facility] [place] [address] * (ABNORMAL) Potassium, Whole Blood (03/23/2017 9:30 PM CDT) [facility] Potassium, bld 5.5(H) 3.3 - 4.9 mmol/L [facility] Blood specimen (specimen) 03/23/2017 9:30 PM CDT 03/23/2017 10:29 PM CDT Darnell Tesfaye LAB BLOOD ORDERABLES Final Result Performing Organization Address [facility] [place] [address] * (ABNORMAL) Glucose POC (03/23/2017 8:31 PM CDT) [facility] Glucose, POC 350(H) 70 - 199 mg/dL [facility] Blood specimen (specimen) 03/23/2017 8:31 PM CDT 03/23/2017 8:31 PM CDT Eloise Coulter MD POINT OF CARE TEST ORDERABLES Final Result Performing Organization Address [facility] de Phone Number [facility] [place] [address] * Hepatitis B surface antibody (03/23/2017 6:05 PM CDT) [facility] HBsAb (immune status) Reactive [facility] Comment: Interpretive Data A Negative Result indicates [...] HBsAb (immune status) index 183.5 mIUnits/m L [facility] Blood specimen (specimen) 03/23/2017 6:05 PM CDT 03/23/2017 7:03 PM CDT Darnell Tesfaye [facility] MICROBIOLOGY - GENERAL ORDERABLES Final Result Performing Organization Address [facility] de Phone Number [facility] [place] [address] * Hepatitis B surface antigen (03/23/2017 6:05 PM CDT) Pathologist [facility] HepBsAg Nonreactive Nonreactive [facility] Blood specimen (specimen) 03/23/2017 6:05 PM CDT 03/23/2017 7:03 PM CDT Darnell Tesfaye [facility] MICROBIOLOGY - GENERAL ORDERABLES Edited Result - Final Performing Organization Address [facility] [place] [address] * Hepatitis C antibody (03/23/2017 6:05 PM CDT) Pathologist [facility] Hep C Ab Nonreactive Nonreactive [facility] Comment: Interpretive Data Positive and greyzone results should be confirmed by a molecular method. If positive or greyzone, a second separately collected sample should be submitted for Hepatitis C Virus RNA. Detection and Quantitation by Real-Time Reverse Animal Health Technician-PCR.Current Interpretive data was last revised on 2017. Blood specimen (specimen) 03/23/2017 6:05 PM CDT 03/23/2017 7:03 PM CDT Darnell Tesfaye [facility] MICROBIOLOG[facility] - GENERAL ORDERABLES Edited Result - Final Performing Organization Address [facility] Co de Phone Number [facility] [place] [place] [address] * Hepatitis B core antibody, total (03/23/2017 6:05 PM CDT) Hep B core IgG/IgM Nonreactive Nonreactive [facility] Blood specimen (specimen) 03/23/2017 6:05 PM CDT 03/23/2017 7:03 PM CDT Darnell Tesfaye LAB MICROBIOLOGY - GENERAL ORDERABLES Edited Result - Final Performing Organization Address City/[facility]/ZIP Co de Phone Number [facility] [place] [address] * Glucose POC (03/23/2017 5:46 PM CDT) Glucose, POC 173 70 - 199 mg/dL [facility] Blood specimen (specimen) 03/23/2017 5:46 PM CDT 03/23/2017 5:46 PM CDT us Eloise Coulter MD POINT OF CARE TEST ORDERABLES Final Result Performing Organization Address [facility] Co de Phone Number [facility] [place] [address] * Surgical pathology (03/23/2017 4:42 PM CDT) 03/23/2017 4:42 PM CDT 03/23/2017 5:00 PM CDT Narrative 03/27/2017 2:49 PM CDT [facility] Sandrine H[facility] [place] [address] SURGICAL PATHOLOGY REPORT FINAL Patient Name: JUVENAL GARVIN ? Address: [address] ??Service: ??Medical ??[place], [place] ??[address] ??Location: ??[facility] 0111 Taken: 03/23/2017 Gender: M ?? Received: 03/23/2017 : 1970 (Age: 46) ??Hospital #: [id number] Accessioned: 03/23/2017 ?Patient Type: ??[facility] Inpatient Reported: [...] determined by the Surgical Pathology Department at [facility] as part of an ongoing quality control microbiologist program and in compliance with federally mandated [...] determined by the Surgical Pathology Department of [facility]. ??It has not been cleared or approved by the U. S. Food and Drug Administration. Alma Kumar MD LAB PATHOLOGY ORDERABLES Final Result * Aerobic and anaerobic culture and gram stain (03/23/2017 4:30 PM CDT) Direct Specimen Exam Stain: No polymorphonuclear leukocytes seen. No organisms seen. [facility] Report Final Report: No growth [facility] Biopsy (Finger, long, left) 03/23/2017 4:30 PM CDT 03/23/2017 5:33 PM CDT Narrative [facility] - 03/24/2017 7:45 AM CDT Pip [...] OR DERABLES Final Result Performing Organization Address [facility] Co de Phone Number [facility] [place] [address] * Glucose POC (03/23/2017 3:12 PM CDT) Pathologist [facility] Glucose, POC 145 70 - 199 mg/dL [facility] Blood specimen (specimen) 03/23/2017 3:12 PM CDT 03/23/2017 3:12 PM CDT Eloise Coulter MD POINT OF CARE TEST ORDERABLES Final Result Performing Organization Address [facility] de Phone Number [facility] [place] [address] * (ABNORMAL) Basic metabolic panel (03/23/2017 12:57 PM CDT) Pathologist [facility] Sodium 136 135 - 145 mmol/L [facility] Potassium, pl 5.5(H) 3.3 - 4.9 mmol/L [facility] Chloride 102 97 - 110 mmol/L [facility] CO2 24 22 - 32 mmol/L [facility] BUN 51(H) 8 - 25 mg/dL [facility] Glucose 177 70 - 199 mg/dL [facility] Creatinine 1.89(H) 0.80 - 1.30 mg/dL [facility] Calcium 9.3 8.5 - 10.3 mg/dL [facility] Anion gap 10 2 - 15 mmol/L [facility] Blood specimen (specimen) 03/23/2017 12:57 PM CDT 03/23/2017 1:24 PM CDT us Darnell Tesfaye [facility] BLOOD ORDERABLES Final Result Performing Organization Address [facility] Co de Phone Number [facility] [place] [address] * (ABNORMAL) Glucose POC (03/23/2017 11:37 AM CDT) Glucose, POC 239(H) 70 - 199 mg/dL [facility] Blood specimen (specimen) 03/23/2017 11:37 AM CDT 03/23/2017 11:37 AM CDT us Eloise Coulter MD POINT OF CARE TEST ORDERABLES Final Result Performing Organization Address [facility] de Phone Number [facility] [place] [address] * (ABNORMAL) Glucose POC (03/23/2017 10:42 AM CDT) Glucose, POC 292(H) 70 - 199 mg/dL [facility] Blood specimen (specimen) 03/23/2017 10:42 AM CDT 03/23/2017 10:42 AM CDT us Eloise Coulter MD POINT OF CARE TEST ORDERABLES Final Result Performing Organization Address [facility] Co de Phone Number [facility] [place] [address] * (ABNORMAL) Glucose POC (03/23/2017 9:12 AM CDT) Glucose, POC 333(H) 70 - 199 mg/dL [facility] Blood specimen (specimen) 03/23/2017 9:12 AM CDT 03/23/2017 9:12 AM CDT us Eloise Coulter MD POINT OF CARE TEST ORDERABLES Final Result Performing Organization Address City/[facility] Co de Phone Number [facility] [place] [address] * (ABNORMAL) Glucose POC (03/23/2017 8:07 AM CDT) Glucose, POC 377(H) 70 - 199 mg/dL [facility] Blood specimen (specimen) 03/23/2017 8:07 AM CDT 03/23/2017 8:07 AM CDT us Eloise Coulter MD POINT OF CARE TEST ORDERABLES Final Result Performing Organization Address [facility] Co de Phone Number [facility] [place] [address] * (ABNORMAL) Glucose POC (03/23/2017 8:04 AM CDT) Glucose, POC 339(H) 70 - 199 mg/dL [facility] Blood specimen (specimen) 03/23/2017 8:04 AM CDT 03/23/2017 8:04 AM CDT us Eloise Coulter MD POINT OF CARE TEST ORDERABLES Final Result Performing Organization Address [facility] Co de Phone Number [facility] [place] [place] [address] * XR Foot 2 VW (03/22/2017 10:52 PM CDT) Anatomical Region Laterality Modality N/A Radiographic Toma ging 03/22/2017 10:5 2 PM CDT Narrative 03/22/2017 10:52 PM CDT ALMA KUMAR M.D. FINAL REPORT ACC# ??Date Time ??Exam [id number] Mar 22, 2017 17:52:00 [id number] Foot 2 views L [id number] Mar 22, 2017 17:52:00 95429 Foot 2 views R EXAMINATION: ?? 1. [...] ALMA KUMAR M.D. on Mar ??2016 ??6:29A [id number] Procedure Note Miscellaneous, Not In File / Provider, MD Zev - 03/23/2017 ALMA KUMAR M.D. FINAL REPORT ACC# Date Time Exam [id number] Mar 22, 2017 17:52:00 [id number] Foot 2 views L [id number] Mar 22, 2017 17:52:00 34063 Foot 2 views R EXAMINATION: 1. Left [...] KUMAR M.D. on Mar 23 2017 6:29A [id number] us Not In File Miscellaneous IMG XR PROCEDURES Ann Marie l Result * XR Foot 2 VW (03/22/2017 10:52 PM CDT) Anatomical Region Laterality Modality N/A Radiographic Toma ging 03/22/2017 10:5 2 PM CDT Narrative 03/22/2017 10:52 PM CDT ALMA KUMAR M.D. FINAL REPORT ACC# ??Date Time ??Exam [id number] Mar 22, 2017 17:52:00 [id number] Foot 2 views L [id number] Mar 22, 2017 17:52:00 24045 Foot 2 views R EXAMINATION: ?? 1. [...] by: ALMA KUMAR M.D. on Mar?2016 ??6:29A [id number] Procedure Note Miscellaneous, Not In File / Provider, MD Zev - 03/23/2017 ALMA KUMAR M.D. FINAL REPORT ACC# Date Time Exam [id number] Mar 22, 2017 17:52:00 [id number] Foot 2 views L [id number] Mar 22, 2017 17:52:00 [id number] Foot 2 views R EXAMINATION: 1. Left [...] KUMAR M.D. on Mar 23 2017 6:29A [id number] us Not In File Miscellaneous IMG XR PROCEDURES Ann Marie l Result * Cyclic citrul peptide antibody, IgG (03/22/2017 9:06 PM CDT) [facility] CCP Ab <0.5 units/mL [facility] Comment: Interpretive data Negative: <3 units/mL Positive: > or equal to 3 units/mL Current interpretive data was last revised on 2016. Blood specimen (specimen) 03/22/2017 9:06 PM CDT 03/22/2017 10:41 PM CDT Alex Lemus MD LAB BLOOD ORDERABLES Fi nal Result Performing Organization Address City/[facility]/ZIP Co de Phone Number [facility] [place] [address] * Antithrombin (03/22/2017 9:06 PM CDT) [facility] Rheumatoid factor, quant <10.0 0.1 - 15.0 IUnits/mL [facility] Blood specimen (specimen) 03/22/2017 9:06 PM CDT 03/22/2017 10:41 PM CDT Alex Lemus MD LAB BLOOD ORDERABLES Fi nal Result Performing Organization Address [facility] Co de Phone Number [facility] [place] [address] * (ABNORMAL) Basic metabolic panel (03/22/2017 9:06 PM CDT) [facility] Sodium 132(L) 135 - 145 mmol/L [facility] Potassium, pl 5.5(H) 3.3 - 4.9 mmol/L [facility] Chloride 100 97 - 110 mmol/L [facility] CO2 23 22 - 32 mmol/L [facility] BUN 49(H) 8 - 25 mg/dL [facility] Glucose 258(H) 70 - 199 mg/dL [facility] Creatinine 2.01(H) 0.80 - 1.30 mg/dL [facility] Calcium 8.7 8.5 - 10.3 mg/dL [facility] Anion gap 9 2 - 15 mmol/L [facility] Blood specimen (specimen) 03/22/2017 9:06 PM CDT 03/22/2017 10:41 PM CDT Result [facility] Alex Lemus MD LAB BLOOD ORDERABLES Ed ited Result - Final Performing Organization Address [facility] de Phone Number [facility] [place] [address] * aPTT (03/22/2017 9:06 PM CDT) aPTT 31.6 25.0 - 37.0 sec [facility] Comment: Interpretive Data Therapeutic heparin range:60.0 - 94.0 sec based on correlation with therapeutic heparin activity range of 0.3 -0.7 Units/mL. Current interpretive data was last revised on 2011. Blood specimen (specimen) 03/22/2017 9:06 PM CDT 03/22/2017 10:39 PM CDT Result [facility] Alex Lemus MD LAB BLOOD ORDERABLES Fi nal Result Performing Organization Address [facility] de Phone Number [facility] [place] [address] * Protime-INR (03/22/2017 9:06 PM CDT) PT 13.5 9.2 - 14.0 sec [facility] INR 1.18 0.81 - 1.22 [facility] Comment: Interpretive Data Inpatient therapeutic ranges* Atrial fibrillation ?2.0-3.0 INR Venous thrombo-embolism ?2.0-3.0 INR Bioprosthetic heart valve ?* Mechanical heart valve, bileaflet or tilting disk,aortic position ? 2.0-3.0 INR All other,or bileaflet or tilting disk, in mitral position ? 2.5-3.5 INR *See the pharmacy resource directory (PHRED) for an updated copy of the Tool Book at [email or web address] Current Interpretive Data was last revised 2011. Blood specimen (specimen) 03/22/2017 9:06 PM CDT 03/22/2017 10:39 PM CDT Alex Lemus MD LAB BLOOD ORDERABLES Fi nal Result [facility] [place] [address] * (ABNORMAL) CBC without differential (03/22/2017 9:06 PM CDT) WBC 6.43 3.80 - 9.90 K/cumm [facility] RBC 2.97(L) 4.30 - 5.80 M/cumm [facility] Hgb 8.2(L) 13.0 - 17.5 g/dL [facility] Hct 26.0(L) 38.9 - 50.3 % [facility] MCV 87.5 81.3 - 96.4 fL [facility] MCH 27.6 27.1 - 33.3 pg [facility] MCHC 31.5(L) 32.3 - 35.7 g/dL [facility] RDW CV 12.9 11.1 - 14.9 % [facility] RDW SD 41.6 35.7 - 48.1 fL [facility] NRBC 0.0 0.0 - 0.2 % [facility] NRBC abs 0.00 0.00 - 0.01 K/cumm [facility] Plt 222 150 - 400 K/cumm [facility] MPV 10.0 9.1 - 12.3 fL [facility] Blood specimen (specimen) 03/22/2017 9:06 PM CDT 03/22/2017 10:41 PM CDT us Alex Lemus MD LAB BLOOD ORDERABLES Fi nal Result Performing Organization Address [facility] Co de Phone Number [facility] [place] [address] * (ABNORMAL) Glucose POC (03/22/2017 8:56 PM CDT) [facility] Glucose, POC 249(H) 70 - 199 mg/dL [facility] Blood specimen (specimen) 03/22/2017 8:56 PM CDT 03/22/2017 8:56 PM CDT us Eloise Coulter MD POINT OF CARE TEST ORDERABLES Final Result Performing Organization Address [facility] de Phone Number [facility] [place] [address] * Dexa Axial Skeleton Bone Density 1 [...] RUPINDER ANDRES M.D. on Mar ??2016 ??2:38P [id number] Procedure Note Miscellaneous, Not In File / [...] ANDRES M.D. on Mar 22 2017 2:38P [id number] us Not In File Miscellaneous IMG DXA PROCEDURES Fin al Result * (ABNORMAL) Glucose POC (03/22/2017 5:59 PM CDT) Glucose, POC 201(H) 70 - 199 mg/dL [facility] Blood specimen (specimen) 03/22/2017 5:59 PM CDT 03/22/2017 5:59 PM CDT us Eloise Coulter MD POINT OF CARE TEST ORDERABLES Final Result [facility] [facility] [place] [address] * XR Hand 3+ VW (03/22/2017 4:37 PM CDT) Anatomical Region Laterality Modality N/A Radiographic Toma ging 03/22/2017 4:37 PM CDT Narrative 03/22/2017 4:37 PM CDT [place] CONTE M.D. FINAL REPORT ACC# ??Date Time ??Exam [id number] Mar 22, 2017 11:37:00 23902 Hand minimum 3 views L [id number] Mar 22, 2017 11:37:00 48145 Hand minimum 3 views R EXAMINATION: ? [...] [place] CONTE M.D. on Mar ??2016 11:57A [id number] Procedure Note Miscellaneous, Not In File / Provider, MD Zev - 03/22/2017 [place] CONTE M.D. FINAL REPORT ACC# Date Time Exam [id number] Mar 22, 2017 11:37:00 [id number] Hand minimum 3 views L [id number] Mar 22, 2017 11:37:00 49057 Hand minimum 3 views R EXAMINATION: 1. [...] This document has been electronically signed by: YK CONTE M.D. on Mar 22 2017 11:57A [id number] us Not In File Miscellaneous IMG XR PROCEDURES Ann Marie l Result * XR Hand 3+ VW (03/22/2017 4:37 PM CDT) Anatomical Region Laterality Modality N/A Radiographic Toma ging 03/22/2017 4:37 PM CDT Narrative 03/22/2017 4:37 PM CDT [place] CONTE M.D. FINAL REPORT ACC# ??Date Time ??Exam [id number] Mar 22, 2017 11:37:00 17430 Hand minimum 3 views L [id number] Mar 22, 2017 11:37:00 53877 Hand minimum 3 views R EXAMINATION: ? [...] by: [place] CONTE M.D. on Mar?2016 11:57A [id number] Procedure Note Miscellaneous, Not In File / Provider, MD Zev - 03/22/2017 [place] CONTE M.D. FINAL REPORT ACC# Date Time Exam [id number] Mar 22, 2017 11:37:00 23051 Hand minimum 3 views L [id number] Mar 22, 2017 11:37:00 07475 Hand minimum 3 views R EXAMINATION: 1. [...] CONTE M.D. on Mar 22 2017 11:57A [id number] us Not In File Miscellaneous IMG XR PROCEDURES Ann Marie l Result * (ABNORMAL) Vitamin D 25 hydroxy (03/22/2017 2:46 PM CDT) Vitamin D 25-OH 22.7(L) 30.0 - 100.0 ng/mL [facility] Blood specimen (specimen) 03/22/2017 2:46 PM CDT 03/22/2017 3:57 PM CDT Alex Lemus MD LAB BLOOD ORDERABLES Fi nal Result Performing Organization Address City/[facility]/ZIP Co de Phone Number [facility] [place] [address] * Glucose POC (03/22/2017 2:35 PM CDT) [facility] Glucose, POC 130 70 - 199 mg/dL [facility] Blood specimen (specimen) 03/22/2017 2:35 PM CDT 03/22/2017 2:35 PM CDT us Eloise Coulter MD POINT OF CARE TEST ORDERABLES Final Result Performing Organization Address [facility] Co de Phone Number [facility] [place] [address] * Glucose POC (03/22/2017 11:47 AM CDT) [facility] Glucose, POC 185 70 - 199 mg/dL [facility] Blood specimen (specimen) 03/22/2017 11:47 AM CDT 03/22/2017 11:47 AM CDT us Eloise Coulter MD POINT OF CARE TEST ORDERABLES Final Result Performing Organization Address City/[facility] Co de Phone Number [facility] [place] [address] * Glucose POC (03/22/2017 8:38 AM CDT) Glucose, POC 198 70 - 199 mg/dL [facility] Blood specimen (specimen) 03/22/2017 8:38 AM CDT 03/22/2017 8:38 AM CDT us Eloise Coulter MD POINT OF CARE TEST ORDERABLES Final Result [facility] Department [place] [address] * (ABNORMAL) Lipid panel (03/21/2017 10:32 PM [...] Triglycerides 146 0 - 150 mg/dL [facility] Comment: Interpretive Data Desirable: ? < [...] on 2015. Non-HDL Cholesterol 123 mg/dL [facility] Comment: Interpretive Data When triglycerides are >200 mg/dL, non-HDL C is a secondary target of therapy, with a goal 30 mg/dL higher than the identified LDL-C goal. Reference: ??See Cholesterol Reference. Current interpretive data was last revised 2015. Blood specimen (specimen) 03/21/2017 10:32 PM CDT 03/21/2017 11:26 PM CDT Darnell Tesfaye [facility] BLOOD ORDERABLES Final Result Performing Organization Address [facility] de Phone Number [facility] [place] [address] * (ABNORMAL) Hemoglobin A1c (03/21/2017 10:32 PM CDT) Pathologist [facility] Hgb A1C 7.4(H) 4.0 - 6.0 % [facility] Estimated Average Glucose 166 mg/dL [facility] Comment: The ADA recommends reporting an estimated Average Glucose (eAG) with all Hemoglobin A1c results using the equation derived from a study of 507 normal and diabetic adults. ??Minority populations were underrepresented and children were not included. ?? (Diabetes Care 31:1119-7993, 2007). ??The eAG is not equivalent to a fasting glucose. Blood specimen (specimen) 03/21/2017 10:32 PM CDT 03/21/2017 11:29 PM CDT Darnell Tesfaye [facility] BLOOD ORDERABLES Edite d Result - Final Performing Organization Address [facility] de Phone Number [facility] [place] [address] * TSH reflex to free T4 (03/21/2017 10:32 PM CDT) TSH 0.80 0.30 - 4.20 mcIUnit/mL [facility] Comment: Interpretive Data Hyperthyroid: ??<0.1 mcIUnit/mL Hypothyroid: ??>12.0 mcIUnit/mL Current interpretive data was last revised on 00. Blood specimen (specimen) 03/21/2017 10:32 PM CDT 03/21/2017 11:26 PM CDT Darnell Tesfaye LAB BLOOD ORDERABLES Edite d Result - Final Performing Organization Address [facility] Co de Phone Number [facility] [place] [address] * Ferritin (03/21/2017 10:32 PM CDT) Ferritin 210 30 - 400 ng/mL [facility] Blood specimen (specimen) 03/21/2017 10:32 PM CDT 03/21/2017 11:26 PM CDT Darnell Tesfaye [facility] BLOOD ORDERABLES Edite d Result - Final Performing Organization Address [facility] de Phone Number [facility] [place] [address] * (ABNORMAL) Iron profile (03/21/2017 10:32 PM CDT) Iron 22(L) 50 - 150 mcg/dL [facility] UIBC 163 112 - 347 mcg/dL [facility] TIBC 185(L) 250 - 400 mcg/dL [facility] Transferrin saturation 12(L) 20 - 50 % [facility] Blood specimen (specimen) 03/21/2017 10:32 PM CDT 03/21/2017 11:26 PM CDT Darnell Tesfaye LAB BLOOD ORDERABLES Final Result Performing Organization Address [facility] Co de Phone Number [facility] [place] [address] * Troponin I (03/21/2017 10:32 PM CDT) [facility] Troponin I 0.03 0.00 - 0.03 ng/mL [facility] Comment: Interpretive Data Serial determinations are recommended for the diagnosis of myocardial infarction (Third [place] Definition of Myocardial Infarction. ??J Am Elena Cardiol 2012;60:1581-98). Current interpretive data was last revised on 13. Blood specimen (specimen) 03/21/2017 10:32 PM CDT 03/21/2017 11:26 PM CDT Darnell Tesfaye LAB BLOOD ORDERABLES Edite d Result - Final [facility] Department [place] [address] * (ABNORMAL) Comprehensive metabolic panel (03/21/2017 10:32 PM CDT) [facility] Sodium 136 135 - 145 mmol/L [facility] Potassium, pl 5.3(H) 3.3 - 4.9 mmol/L [facility] CO2 22 22 - 32 mmol/L [facility] BUN 46(H) 8 - 25 mg/dL [facility] Glucose 320(H) 70 - 199 mg/dL [facility] Creatinine 1.98(H) 0.80 - 1.30 mg/dL [facility] Calcium 8.8 8.5 - 10.3 mg/dL [facility] Chloride 103 97 - 110 mmol/L [facility] Albumin 3.0(L) 3.5 - 5.0 g/dL [facility] AST 27 10 - 50 Units/L [facility] ALT 36 7 - 55 Units/L [facility] Alk phos 102 40 - 130 Units/L [facility] Bilirubin, total 0.3 0.1 - 1.2 mg/dL [facility] Protein, pl 6.6 6.5 - 8.5 g/dL [facility] Anion gap 11 2 - 15 mmol/L [facility] Blood specimen (specimen) 03/21/2017 10:32 PM CDT 03/21/2017 11:26 PM CDT [facility] BLOOD ORDERABLES Final Result Performing Organization Address [facility] Co de Phone Number [facility] [place] [address] * Differential, auto (03/21/2017 10:32 PM CDT) Neutrophil pct 69.3 % [facility] Imm gran pct 0.4 % [facility] Lymphocyte pct 19.3 % [facility] Monocyte pct 9.4 % [facility] Eosinophil pct 1.3 % [facility] Basophil pct 0.3 % [facility] Neutrophil abs 4.69 1.70 - 6.50 K/cumm [facility] Imm gran abs 0.03 0.00 - 0.10 K/cumm [facility] Lymphocyte abs 1.31 0.80 - 3.30 K/cumm [facility] Monocyte abs 0.64 0.20 - 0.80 K/cumm [facility] Eosinophil abs 0.09 0.00 - 0.50 K/cumm [facility] Basophil abs 0.02 0.00 - 0.10 K/cumm [facility] Blood specimen (specimen) 03/21/2017 10:32 PM CDT 03/21/2017 11:25 PM CDT [facility] BLOOD ORDERABLES Final Result Performing Organization Address City/[facility]/ZIP Co de Phone Number [facility] Department [place] [address] * (ABNORMAL) CBC with auto differential (03/21/2017 10:32 PM CDT) WBC 6.78 3.80 - 9.90 K/cumm [facility] RBC 2.92(L) 4.30 - 5.80 M/cumm [facility] Hgb 8.1(L) 13.0 - 17.5 g/dL [facility] Hct 25.2(L) 38.9 - 50.3 % [facility] MCV 86.3 81.3 - 96.4 fL [facility] MCH 27.7 27.1 - 33.3 pg [facility] MCHC 32.1(L) 32.3 - 35.7 g/dL [facility] RDW CV 13.1 11.1 - 14.9 % [facility] RDW SD 41.5 35.7 - 48.1 fL [facility] Plt 218 150 - 400 K/cumm [facility] MPV 10.1 9.1 - 12.3 fL [facility] NRBC 0.0 0.0 - 0.2 % [facility] NRBC abs 0.00 0.00 - 0.01 K/cumm [facility] Blood specimen (specimen) 03/21/2017 10:32 PM CDT 03/21/2017 11:25 PM CDT us Darnell Tesfaye LAB BLOOD ORDERABLES Final Result [facility] [place] [address] * (ABNORMAL) Glucose POC (03/21/2017 8:30 PM CDT) Glucose, POC 323(H) 70 - 199 mg/dL [facility] Blood specimen (specimen) 03/21/2017 8:30 PM CDT 03/21/2017 8:30 PM CDT Eloise Coulter MD POINT OF CARE TEST ORDERABLES Final Result [facility] [place] [address] * (ABNORMAL) Glucose POC (03/21/2017 5:52 PM CDT) Glucose, POC 58(L) 70 - 199 mg/dL [facility] Blood specimen (specimen) 03/21/2017 5:52 PM CDT 03/21/2017 5:52 PM CDT us Eloise Coulter MD POINT OF CARE TEST ORDERABLES Final Result [facility] [place] [address] * Fluoro Guided Needle Placement (03/21/2017 3:36 PM CDT) Anatomical Region Laterality Modality Body N/A Radiographic Toma ging 03/21/2017 3:36 PM CDT Narrative 03/21/2017 3:36 PM CDT MALLORY CROSS M.D. MALISSA LEÓN M.D. FINAL REPORT The radiology attending physician has personally reviewed this study, and has reviewed and/or edited this written report and agrees with it. ACC# ??Date Time ??Exam [id number] Mar 21, 2017 10:36:00 [id number] Fluoro Gd for Ndl (MSK) [id number] Mar 21, 2017 10:36:00 [id number] Asp/Inj Lg Jnt ACC# ??Date Time ??Exam [id number] Mar 21, 2017 10:36:00 [id number] Fluoro Gd for Ndl (MSK) [id number] Mar 21, 2017 10:36:00 95319 Asp/Inj Lg Jnt EXAMINATION: ?? Right glenohumeral [...] was obtained. ??Prior to beginning the procedure, [place] Protocol was performed to confirm the patient? [...] MALLORY CROSS M.D. on Mar ??2016 ??6:21P [id number] Procedure Note Miscellaneous, Not In File / Provider, MD Zev - 03/21/2017 Dorys ALEMAN M.D. FINAL REPORT The radiology attending physician has personally reviewed this study, and has reviewed and/or edited this written report and agrees with it. ACC# Date Time Exam [id number] Mar 21, 2017 10:36:00 [id number] Fluoro Gd for Ndl (MSK) [id number] Mar 21, 2017 10:36:00 82602 Asp/Inj Lg Jnt ACC# Date Time Exam [id number] Mar 21, 2017 10:36:00 [id number] Fluoro Gd for Ndl (EM) [id number] Mar 21, 2017 10:36:00 87860 Asp/Inj Lg Jnt EXAMINATION: Right glenohumeral joint [...] was obtained. Prior to beginning the procedure, [place] Protocol was performed to confirm the patient? [...] CROSS M.D. on Mar 21 2017 6:21P [id number] us Not In File Miscellaneous IMG FLUOROSCOPY [...] agrees with it. ACC# ??Date Time ??Exam [id number] Mar 21, 2017 10:36:00 [id number] Fluoro Gd for Ndl (MSK) [id number] Mar 21, 2017 10:36:00 36174 Asp/Inj Lg Jnt ACC# ??Date Time ??Exam [id number] Mar 21, 2017 10:36:00 [id number] Fluoro Gd for Ndl (MSK) [id number] Mar 21, 2017 10:36:00 53899 Asp/Inj Lg Jnt EXAMINATION: ?? Right glenohumeral [...] was obtained. ??Prior to beginning the procedure, [place] Protocol was performed to confirm the patient? [...] agrees with it. ACC# Date Time Exam [id number] Mar 21, 2017 10:36:00 [id number] Fluoro Gd for Ndl (MSK) [id number] Mar 21, 2017 10:36:00 14028 Asp/Inj Lg Jnt ACC# Date Time Exam [id number] Mar 21, 2017 10:36:00 [id number] Fluoro Gd for Ndl (MSK) [id number] Mar 21, 2017 10:36:00 67435 Asp/Inj Lg Jnt EXAMINATION: Right glenohumeral joint [...] was obtained. Prior to beginning the procedure, [place] Protocol was performed to confirm the patient? [...] CDT Narrative 03/21/2017 12:58 PM CDT SWATI ORTIZ M.D. DONAVON WEBB M.D. FINAL REPORT The radiology attending physician has personally reviewed this study, and has reviewed and/or edited this written report and agrees with it. ACC# ??Date Time ??Exam [id number] Mar 21, 2017 07:58:00 28816 Shoulder minimum 2 views R EXAMINATION: ?? [...] SWATI ORTIZ M.D. on Mar ??2016 10:27A [id number] Procedure Note Miscellaneous, Not In File / Provider, MD Zev - 03/21/2017 SWATI ORTIZ M.D. DONAVON WEBB M.D. FINAL REPORT The radiology attending physician has personally reviewed this study, and has reviewed and/or edited this written report and agrees with it. ACC# Date Time Exam [id number] Mar 21, 2017 07:58:00 [id number] Shoulder minimum 2 views R EXAMINATION: Shoulder [...] ORTIZ M.D. on Mar 21 2017 10:27A [id number] us Not In File Miscellaneous IMG XR [...] agrees with it. ACC# ??Date Time ??Exam [id number] Mar 21, 2017 07:58:00 [id number] Chest 2 views Frontl ??and ??Lat ACC# ??Date Time ??Exam [id number] Mar 21, 2017 07:58:00 03352 Chest 2 views Frontl ??and ??Lat EXAMINATION: [...] by: SWATI ORTIZ M.D. on Mar?2016 10:27A [id number] Procedure Note Miscellaneous, Not In File / Provider, MD Zev - 03/21/2017 SWATI ORTIZ M.D. DONAVON WEBB M.D. FINAL REPORT The radiology attending physician has personally reviewed this study, and has reviewed and/or edited this written report and agrees with it. ACC# Date Time Exam [id number] Mar 21, 2017 07:58:00 09490 Chest 2 views Frontl and Lat ACC# Date Time Exam [id number] Mar 21, 2017 07:58:00 [id number] Chest 2 views Frontl and Lat EXAMINATION: [...] ORTIZ M.D. on Mar 21 2017 10:27A [id number] us Not In File Miscellaneous IMG XR PROCEDURES Ann Marie l Result * N. gonorrhoeae/C. trachomatis amplification test (03/21/2017 11:53 AM CDT) Report Final Report: Negative for: ??Chlamydia trachomatis rRNA Negative for: ??Neisseria gonorrhoeae rRNA [facility] Urine 03/21/2017 11:5 3 AM CDT 03/21/2017 12:07 PM CDT Narrative [facility] - 03/21/2017 12:07 PM CDT Testing performed by the Gen-Probe [employer] APTIMA Combo 2 Assay. This nucleic acid amplification test (NAAT) detects ribosomal RNA (rRNA) from Chlamydia trachomatis and Neisseria gonorrhoeae using target capture,and Animal Health Technician-Mediated Amplification (TMA). This test is approved by the [place] Food and Drug Administration for endocervical, vaginal, and male urethral swab specimens, in addition to male and female urine specimens. The performance characteristics for these specimen types have been verified by the [facility]biology Laboratory.The performance characteristics of this assay for pharyngeal and rectal specimens collected from cervical swab collection devices have been validated and verified by the [facility] Laboratory. Verification studies support a lack [...] GENERAL ORDERABLES Final Result Performing Organization Address City/[facility]/ZIP Co de Phone Number [facility] [place] [address] * B Check Sample (03/21/2017 8:24 AM CDT) ABO Rh A Positive [facility] HCLL OTHER 03/21/2017 8:24 AM CDT 03/21/2017 9:32 AM CDT us Notinfile Unknown LAB BLOOD ORDERABLES Final Res ult Performing Organization Address [facility] Co de Phone Number [facility] [place] [address] * Lactate POC (03/21/2017 8:24 AM CDT) Pathologist [facility] Lactate POC i-STAT 1.0 0.7 - 2.2 mmol/L [facility] Blood specimen (specimen) 03/21/2017 8:24 AM CDT 03/21/2017 8:24 AM CDT us Notinfile Unknown LAB BLOOD ORDERABLES Final Res ult Performing Organization Address City/[facility] Co de Phone Number [facility] [place] [address] * Blood culture (03/21/2017 8:11 AM CDT) [...] organism identification may be performed using the [employer] Nanosphere Gram Positive Blood Culture Assay. ??The Nanosphere assay detects microbial DNA in positive blood culture broth via hybridization of target DNA to capture oligonucleotides on a microarray. ??This assay has been cleared by the [place] Food and Drug Administration and its performance characteristics have been verified by the [facility]biology Laboratory. Current Interpretive Data was last revised on 2014. Estelita Bishop MD LAB MICROBIOLOGY - GENERAL ORDERABLES Final Result [facility] [place] [address] * Blood culture (03/21/2017 8:11 AM CDT) Report Final Report: No growth [facility] Blood specimen (specimen) (Antecubital, left) 03/21/2017 [...] organism identification may be performed using the [employer] Nanosphere Gram Positive Blood Culture Assay. ??The Nanosphere assay detects microbial DNA in positive blood culture broth via hybridization of target DNA to capture oligonucleotides on a microarray. ??This assay has been cleared by the [place] Food and Drug Administration and its performance characteristics have been verified by the [facility]biology Laboratory. Current Interpretive Data was last revised on 2014. us Estelita Bishop MD LAB MICROBIOLOGY - GENERAL ORDERABLES Final Result Performing Organization Address [facility] Co de Phone Number [facility] [place] [address] * Uric acid (03/21/2017 8:11 AM CDT) Uric acid 8.0 3.0 - 8.0 mg/dL [facility] Blood specimen (specimen) 03/21/2017 8:11 AM CDT 03/21/2017 8:22 AM CDT us Estelita Bishop MD LAB BLOOD ORDERABL ES Edited Result - Final Performing Organization Address [facility] de Phone Number [facility] [place] [address] * (ABNORMAL) CRP (acute phase) (03/21/2017 8:11 AM CDT) CRP 107.2(H) 0.0 - 9.9 mg/L [facility] Blood specimen (specimen) 03/21/2017 8:11 AM CDT 03/21/2017 8:22 AM CDT us Estelita Bishop MD LAB BLOOD ORDERABL ES Final Result Performing Organization Address [facility] de Phone Number [facility] [place] [address] * Hepatic function panel (03/21/2017 8:11 AM CDT) AST 34 10 - 50 Units/L [facility] ALT 45 7 - 55 Units/L [facility] Alk phos 114 40 - 130 Units/L [facility] Bilirubin, total 0.4 0.1 - 1.2 mg/dL [facility] Bilirubin, direct <0.2 0.1 - 0.3 mg/dL [facility] Protein, pl 7.7 6.5 - 8.5 g/dL [facility] Albumin 3.8 3.5 - 5.0 g/dL [facility] Blood specimen (specimen) 03/21/2017 8:11 AM CDT 03/21/2017 8:22 AM CDT Result [facility] Estelita Bishop MD LAB BLOOD ORDERABL ES Edited Result - Final Performing Organization Address City/[facility] Co de Phone Number [facility] [place] [address] * aPTT (03/21/2017 8:11 AM CDT) Pathologist [facility] aPTT 32.5 25.0 - 37.0 sec [facility] Comment: Interpretive Data Therapeutic heparin range:60.0 - 94.0 sec based on correlation with therapeutic heparin activity range of 0.3 -0.7 Units/mL. Current interpretive data was last revised on 2011. Blood specimen (specimen) 03/21/2017 8:11 AM CDT 03/21/2017 8:58 AM CDT Estelita Bishop MD LAB BLOOD ORDERABL ES Final Result Performing Organization Address City/[facility]/ZIP Co de Phone Number [facility] [place] [address] * (ABNORMAL) Protime-INR (03/21/2017 8:11 AM CDT) Pathologist [facility] PT 16.2(H) 9.2 - 14.0 sec [facility] INR 1.41(H) 0.81 - 1.22 [facility] Comment: Interpretive Data Inpatient therapeutic ranges* Atrial fibrillation ?2.0-3.0 INR Venous thrombo-embolism ?2.0-3.0 INR Bioprosthetic heart valve ?* Mechanical heart valve, bileaflet or tilting disk,aortic position ? 2.0-3.0 INR All other,or bileaflet or tilting disk, in mitral position ? 2.5-3.5 INR *See the pharmacy resource directory (PHRED) for an updated copy of the Tool Book at [email or web address] Current Interpretive Data was last revised 2011. Blood specimen (specimen) 03/21/2017 8:11 AM CDT 03/21/2017 8:58 AM CDT Estelita Bishop MD LAB BLOOD ORDERABL ES Final Result [facility] [place] [address] * Type and screen (03/21/2017 8:11 AM CDT) Maribel, indirect Negative [facility] ABO Rh A Positive [facility] Blood specimen (specimen) 03/21/2017 8:11 AM CDT 03/21/2017 8:23 AM CDT Estelita Bishop MD LAB BLOOD BANK ERNESTO T ORDERABLES Edited Result - Final [facility] [place] [address] * (ABNORMAL) Erythrocyte sedimentation rate (03/21/2017 8:11 AM CDT) Erythrocyte sedimentation rate 102(H) 0 - 12 mm/H [facility] Blood specimen (specimen) 03/21/2017 8:11 AM CDT 03/21/2017 8:22 AM CDT Estelita Bishop MD LAB BLOOD ORDERABL ES Final Result Performing Organization Address [facility] de Phone Number [facility] [place] [address] * (ABNORMAL) Urinalysis, microscopic only (03/21/2017 7:15 AM CDT) RBC, ur 1 0 - 3 /HPF [facility] WBC, ur 0 0 - 5 /HPF [facility] Bacteria, ur Negative Trace [facility] Epithelial cells, renal, ur 0 0 - 0 /HPF [facility] Mucus, ur Small /HPF [facility] Hyaline casts, ur >2(H) 0 - 0 /LPF [facility] Urine 03/21/2017 7:15 AM CDT 03/21/2017 7:46 AM CDT Estelita Bishop MD LAB URINE ORDERABL ES Final Result Performing Organization Address [facility] de Phone Number [facility] [place] [address] * (ABNORMAL) Urinalysis reflex to microscopic (03/21/2017 7:15 AM CDT) Color, ur Colorless Yellow [facility] Clarity, ur Clear Clear [facility] Specific gravity, ur 1.005 1.003 - 1.030 [facility] pH, ur 5.0 5.0 - 8.0 [facility] Albumin, ur Negative Trace [facility] Glucose, ur ql Negative Negative [facility] Ketones, ur Negative Negative [facility] Bilirubin, ur Negative Negative [facility] Blood, ur 1+(A) Negative [facility] Urobilinogen, ur <2.0 <2.0 mg/dL [facility] Nitrites, ur Negative Negative [facility] Leukocyte esterase, ur Negative Negative [facility] Urine 03/21/2017 7:15 AM CDT 03/21/2017 7:46 AM CDT us Estelita Bishop MD LAB URINE ORDERABL ES Final Result Performing Organization Address [facility] Co de Phone Number [facility] Department [place] [employer] [place] [address] * (ABNORMAL) Basic metabolic panel (03/21/2017 7:15 AM CDT) Pathologist [facility] Sodium 140 135 - 145 mmol/L [facility] Potassium, pl 5.9(H) 3.3 - 4.9 mmol/L [facility] Chloride 108 97 - 110 mmol/L [facility] CO2 21(L) 22 - 32 mmol/L [facility] BUN 50(H) 8 - 25 mg/dL [facility] Glucose 137 70 - 199 mg/dL [facility] Creatinine 1.99(H) 0.80 - 1.30 mg/dL [facility] Calcium 9.2 8.5 - 10.3 mg/dL [facility] Anion gap 11 2 - 15 mmol/L [facility] Blood specimen (specimen) 03/21/2017 7:15 AM CDT 03/21/2017 7:26 AM CDT us Daniel Mejia MD LAB BLOOD ORDERABLES Final Res ult Performing Organization Address [facility] Co de Phone Number [facility] Department [place] [place] [address] * (ABNORMAL) B-type natriuretic peptide (03/21/2017 7:15 AM CDT) Pathologist [facility] B-Type Natriuretic Peptide (BNP) 113(H) 0 - 100 pg/mL [facility] Blood specimen (specimen) 03/21/2017 7:15 AM CDT 03/21/2017 7:26 AM CDT us Daniel Mejia MD LAB BLOOD ORDERABLES Final Res ult Performing Organization Address [facility] Co de Phone Number [facility] [place] [address] * Troponin I (03/21/2017 7:15 AM CDT) Pathologist [facility] Troponin I 0.03 0.00 - 0.03 ng/mL [facility] Comment: Interpretive Data Serial determinations are recommended for the diagnosis of myocardial infarction (Third [place] Definition of Myocardial Infarction. ??J Am Elena Cardiol 2012;60:1581-98). Current interpretive data was last revised on 13. Blood specimen (specimen) 03/21/2017 7:15 AM CDT 03/21/2017 7:26 AM CDT us Daniel Mejia MD LAB BLOOD ORDERABLES Edited Re sult - Final Performing Organization Address [facility] Co de Phone Number [facility] [place] [address] * (ABNORMAL) Differential, auto (03/21/2017 7:15 AM CDT) Pathologist [facility] Neutrophil pct 74.9 % [facility] Imm gran pct 0.5 % [facility] Lymphocyte pct 11.9 % [facility] Monocyte pct 11.8 % [facility] Eosinophil pct 0.8 % [facility] Basophil pct 0.1 % [facility] Neutrophil abs 6.21 1.70 - 6.50 K/cumm [facility] Imm gran abs 0.04 0.00 - 0.10 K/cumm [facility] Lymphocyte abs 0.99 0.80 - 3.30 K/cumm [facility] Monocyte abs 0.98(H) 0.20 - 0.80 K/cumm [facility] Eosinophil abs 0.07 0.00 - 0.50 K/cumm [facility] Basophil abs 0.01 0.00 - 0.10 K/cumm [facility] Blood specimen (specimen) 03/21/2017 7:15 AM CDT 03/21/2017 7:26 AM CDT us Daniel Mejia MD LAB BLOOD ORDERABLES Final Res ult Performing Organization Address City/[facility] Co de Phone Number [facility] [place] [address] * (ABNORMAL) CBC with auto differential (03/21/2017 7:15 AM CDT) WBC 8.30 3.80 - 9.90 K/cumm [facility] RBC 3.24(L) 4.30 - 5.80 M/cumm [facility] Hgb 9.1(L) 13.0 - 17.5 g/dL [facility] Hct 28.2(L) 38.9 - 50.3 % [facility] MCV 87.0 81.3 - 96.4 fL [facility] MCH 28.1 27.1 - 33.3 pg [facility] MCHC 32.3 32.3 - 35.7 g/dL [facility] RDW CV 13.2 11.1 - 14.9 % [facility] RDW SD 41.9 35.7 - 48.1 fL [facility] Plt 232 150 - 400 K/cumm [facility] MPV 9.5 9.1 - 12.3 fL [facility] NRBC 0.0 0.0 - 0.2 % [facility] NRBC abs 0.00 0.00 - 0.01 K/cumm [facility] Blood specimen (specimen) 03/21/2017 7:15 AM CDT 03/21/2017 7:26 AM CDT us Daniel Mejia MD LAB BLOOD ORDERABLES Final Res ult Performing Organization Address [facility]/State/ZIP Co de Phone Number [facility] Department [place] [address] * Glucose POC (03/21/2017 6:50 AM CDT) Glucose, POC 141 70 - 199 mg/dL [facility] Blood specimen (specimen) 03/21/2017 6:50 AM CDT 03/21/2017 6:50 AM CDT us Notinfile Unknown POINT OF CARE TEST ORDERABLES Final Result [facility] [place] [address] * TRANSTHORACIC ECHO (TTE) COMPLETE W DOPPLER/CF WO CONTRAST (03/21/2017) Anatomical Region Laterality Modality Ultrasound us Provider Scanning CV ECHO PROCEDURES Final Resul t * ELECTROCARDIOGRAPHY (ECG) (03/21/2017) us Provider Scanning ECG ORDERABLES Edited Result - Final documented in this encounter Visit Diagnoses Not on filedocumented in this encounter Care Teams Flame Planer Relationship Specialty Start Date End Date Jhonatan Bellamy MD [address] [place] [place] [address] PCP - General 03/25/15 04/16/18 documented as of this encounter
--- OUTSIDE RECORDS SUMMARY | 2024-08-24 04:52 | XMS_ITS | Encounter Summary ---
Author Organization [facility] Address [address] [facility] [address] [place] [address] Care Team Providers Care Auto Winder Name Role Phone Jhonatan Bellamy MD Primary Care Provider [phone]- [phone] Pedro Lakhani MD Primary Care Provider Eugenia Hughes MD Primary Care Provider +1- [phone] Aditya Castro MD Primary Care Provider [phone] Encounter Details Date Type Department Care Team (Late st Contact Info) Description 05/16/2017 Orders Only [facility] Cardiology [address] [facility] [address] [place] [address] Provider, MD Zev [address] [place] [address] Social History Tobacco Use Types Packs/Day Years Used Date Smoking Tobacco: Never Smokeless Tobacco: Former Alcohol Use Standard Drinks/Week Comments No 0 (1 standard drink = 0.6 oz pur e alcohol) Sex and Gender Information Value Date Recorded Sex Assigned at Not on file 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 [place] [address] PCP - General 10/17/19 documented as of this encounter
--- OUTSIDE RECORDS SUMMARY | 2024-08-24 04:52 | XMS_ITS | Encounter Summary ---
Author Organization [facility] Care Team Providers Care Human Factors Scientist Name Role Phone Jhonatan Bellamy MD Primary Care Provider [phone]- [phone] Encounter Details Date Type Department Care Team (Late st Contact Info) Description 06/04/2016 12:36 PM CDT - 06/04/2016 4:36 PM CDT [facility] [address] [facility] [address] [place] [id number] Olecranon bursitis of left elbow Social History Tobacco Use Types Packs/Day Years Used Date Smoking Tobacco: Never Assessed Sex and Gender Information Value Date Recorded Sex Assigned at Not on file 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
--- OUTSIDE RECORDS SUMMARY | 2024-08-24 04:52 | XMS_ITS | Encounter Summary ---
Author Organization [facility] Address [address] [address] Care Team Providers Care Pinsetter Mechanic Helper Name Role Phone Jhonatan Bellamy MD Primary Care Provider [phone]- [phone] Encounter Details Date Type Department Care Team (Late st Contact Info) Description 05/31/2017 Telephone [facility] [address] [address] Abelardo Petit MD [address] [facility] [address] [address] Social History Tobacco Use Types Packs/Day Years Used Date Smoking Tobacco: Never Smokeless Tobacco: Former Alcohol Use Standard Drinks/Week Comments No 0 (1 standard drink = 0.6 oz pur e alcohol) Sex and Gender Information Value Date Recorded Sex Assigned at Not on file 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 Had patient give the phone number for Marcelino To who is handling the case for pt Contact for Marcelino is [phone] . He wants documentation of patient's medical condition. Send all records, including early May office note. Form ws faxed previously ,refaxed. documented in this encounter Plan of Treatment Not on file documented as of this encounter Visit Diagnoses Not on filedocumented in this encounter Care Teams Pinsetter Mechanic Helper Relationship Specialty Start Date End Date Jhonatan Bellamy MD [address] [place], [place] [address] PCP - General 03/25/15 04/16/18 documented as of this encounter
--- OUTSIDE RECORDS SUMMARY | 2024-08-24 04:52 | XMS_ITS | Encounter Summary ---
Author Organization [facility] Address [address] [address] Care Team Providers Care Pathology Supervisor Name Role Phone Jhonatan Bellamy MD Primary Care Provider [phone]- [phone] Encounter Details Date Type Department Care Team (Late st Contact Info) Description 06/09/2017 Telephone [facility] [address] [address] Abelardo Petit MD [address] [facility] [address] [address] Social History Tobacco Use Types Packs/Day Years Used Date Smoking Tobacco: Never Smokeless Tobacco: Former Alcohol Use Standard Drinks/Week Comments No 0 (1 standard drink = 0.6 oz pur e alcohol) Sex and Gender Information Value Date Recorded Sex Assigned at Not on file 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 documented in this encounter Plan of Treatment Not on file documented as of this encounter Visit Diagnoses Not on filedocumented in this encounter Care Teams Pathology Supervisor Relationship Specialty Start Date End Date Jhonatan Bellamy MD [address] [place] [address] PCP - General 03/25/15 04/16/18 documented as of this encounter
--- OUTSIDE RECORDS SUMMARY | 2024-08-24 04:52 | XMS_ITS | Encounter Summary ---
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 Pt also asked about chest tightness which he has had from time to time that reminds him of the discomfort he had withhis WA, but not near as severe. Patient said [...] CDT Pt ws taking Uloric before his WA, asked if it's OK to take . Told him I thought it should be Ok, but will double check with WELFARE MANAGER. documented in this encounter Plan of Treatment Not on file documented as of this encounter Visit Diagnoses Not on filedocumented in this encounter Care Teams Parts Sales Manager Relationship Specialty Start Date End Date Jhonatan Bellamy MD [address] [facility] [place] [address] PCP - General 03/25/15 04/16/18 documented as of this encounter
--- OUTSIDE RECORDS SUMMARY | 2024-08-24 04:52 | XMS_ITS | Encounter Summary ---
Author Organization [facility] Address [address] [address] Care Team Providers Care Nitric Acid Plant Operator Name Role Phone Jhonatan Bellamy MD Primary Care Provider +1- [phone] Encounter Details Date Type Department Care Team (Late st Contact Info) Description 05/30/2017 Telephone [facility] [address] [address] Abelardo Petit MD [address] [facility] [address] [address] Social History Tobacco Use Types Packs/Day Years Used Date Smoking Tobacco: Never Smokeless Tobacco: Former Alcohol Use Standard Drinks/Week Comments No 0 (1 standard drink = 0.6 oz pur e alcohol) Sex and Gender Information Value Date Recorded Sex Assigned at Not on file 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 documented in this encounter Plan of Treatment Not on file documented as of this encounter Visit Diagnoses Not on filedocumented in this encounter Care Teams Nitric Acid Plant Operator Relationship Specialty Start Date End Date Malench, Jhonatan E., MD [address] [place] [address] PCP - General 03/25/15 04/16/18 documented as of this encounter
--- OUTSIDE RECORDS SUMMARY | 2024-08-24 04:52 | XMS_ITS | Encounter Summary ---
Author Organization [facility] Address [address] [address] Care Team Providers Care Tool Liaison Name Role Phone Jhonatan Bellamy MD Primary Care Provider +1- [phone] Encounter Details Date Type Department Care Team (Late st Contact Info) Description 05/25/2017 Telephone [facility] [address] [address] Abelardo Petit MD [address] [facility] [address] [address] Social History Tobacco Use Types Packs/Day Years Used Date Smoking Tobacco: Never Smokeless Tobacco: Former Alcohol Use Standard Drinks/Week Comments No 0 (1 standard drink = 0.6 oz pur e alcohol) Sex and Gender Information Value Date Recorded Sex Assigned at Not on file 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 Claim number [id number]. Also pt needs note re FMLA (incident [id number]) stating pt's leave is extended to Jun. Fax [phone] Attention Marcelino Brock Told pt I will send the requested information today or tomorrow. documented in this encounter Plan of Treatment Not on file documented as of this encounter Visit Diagnoses Not on filedocumented in this encounter Care Teams Tool Liaison Relationship Specialty Start Date End Date Jhonatan Bellamy MD [address] [place] [address] PCP - General 03/25/15 04/16/18 documented as of this encounter
--- OUTSIDE RECORDS SUMMARY | 2024-08-24 04:52 | XMS_ITS | Encounter Summary ---
Author Organization [facility] Address [address] [address] Care Team Providers Care Drawer Liner Name Role Phone Jhonatan Bellamy MD Primary Care Provider +1- [phone] Encounter Details Date Type Department Care Team (Late st Contact Info) Description 06/12/2017 Telephone [facility] [address] [address] Abelardo Petit MD [address] [facility] 162 [facility] [address] [place] [address] Social History Tobacco Use Types Packs/Day Years Used Date Smoking Tobacco: Never Smokeless Tobacco: Former Alcohol Use Standard Drinks/Week Comments No 0 (1 standard drink = 0.6 oz pur e alcohol) Sex and Gender Information Value Date Recorded Sex Assigned at Not on file 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
--- OUTSIDE RECORDS SUMMARY | 2024-08-24 04:52 | XMS_ITS ---
Author Organization [facility] Address [address] [place] [address] Care Team Providers Care Broomcorn Thresher Name Role Phone Aditya Castro MD Primary Care Provider [phone] Alondra Lambert RN Unavailable [phone] Shannon Brock MD, [place] P. Unavailable [phone] Leandro Reyes MD Unavailable [phone] Transplant Episode Kidney Candidate [facility] ([place], [place]) - [facility] Evaluation began on 05/10/2024 Marked as Active on 05/10/2024 Reason: Evaluation - Standard Kidney CoordinatorAlondra Lambert RN Fax: N/A Email: N/A Scores Score Value Updated Exceptions/Reas ons CPRA Not available EPTS (Calc) 78 08/24/2024 Care Team Name Role Phone Fax Email Alondra Lambert RN Kidney Coordinator [phone] N/A N/A Melany Kelly Primary Facilities Director N/A N/A N/A Chris Richard Private Advisor N/A N/A N/A Events Pre-Transplant Referred: 03/06/2024 Evaluation began: 05/10/2024 Appointments (07/24/2024 - 09/24/2024) When With Visit Type Description 07/29/2024 Radiology [...] on chronic dialysis (CMS/HCC) (HCC); CAD in kiana artery; Paroxysmal atrial fibrillation (CMS/HCC) (HCC) Dialysis History Dialysis History Start End Type Comments Center 10/16/2019 Peritoneal [facility] Dialysis Center Information Center Phone Fax Address [facility] [phone] [address]
--- OUTSIDE RECORDS SUMMARY | 2024-08-24 04:52 | XMS_ITS | Encounter Summary ---
Author Organization [facility] Address [address] [address] Care Team Providers Care Repairer Controller Tester Name Role Phone Jhonatan Bellamy MD Primary Care Provider +1- [phone] Encounter Details Date Type Department Care Team (Late st Contact Info) Description 06/08/2017 Telephone [facility] [address] [address] Abelardo Petit MD 6810 [facility] [address] [address] Social History Tobacco Use Types Packs/Day Years Used Date Smoking Tobacco: Never Smokeless Tobacco: Former Alcohol Use Standard Drinks/Week Comments No 0 (1 standard drink = 0.6 oz pur e alcohol) Sex and Gender Information Value Date Recorded Sex Assigned at Not on file Legal Sex Male 3:42 AM BUSINESS DEVELOPMENT Gender Identity Not on file Sexual [...] on filedocumented in this encounter Care Teams Repairer Controller Tester Relationship Specialty Start Date End Date Jhonatan Bellamy MD [address] [place] [address] PCP - General 03/25/15 04/16/18 documented as of this encounter
--- OUTSIDE RECORDS SUMMARY | 2024-08-24 04:52 | XMS_ITS | Encounter Summary ---
Author Organization [facility] Address [address] [address] Care Team Providers Care Coning Machine Operator Name Role Phone Jhonatan Bellamy MD Primary Care Provider +1- [phone] Encounter Details Date Type Department Care Team (Late st Contact Info) Description 05/26/2017 Telephone [facility] [address] [address] Abelardo Petit MD 6810 [facility] [address] [address] Social History Tobacco Use Types Packs/Day Years Used Date Smoking Tobacco: Never Smokeless Tobacco: Former Alcohol Use Standard Drinks/Week Comments No 0 (1 standard drink = 0.6 oz pur e alcohol) Sex and Gender Information Value Date Recorded Sex Assigned at Not on file 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 documented in this encounter Plan of Treatment Not on file documented as of this encounter Visit Diagnoses Not on filedocumented in this encounter Care Teams Coning Machine Operator Relationship Specialty Start Date End Date Jhonatan Bellamy MD [address] [place] [address] PCP - General 03/25/15 04/16/18 documented as of this encounter
--- OUTSIDE RECORDS SUMMARY | 2024-08-24 04:52 | XMS_ITS | Encounter Summary ---
Author Organization [facility] Facility Care Team Providers Care Salesperson Pets And Pet Supplies Name Role Phone Unavailable Primary Care Provider Unavailabl e Encounter Details Date Type Department Care Team (Late st Contact Info) Description 11/20/2014 9:06 PM CDT - 11/21/2014 7:54 AM CDT Hospital Encounter [facility] Abelardo Garcia MD [address] [facility] [address] [place] [address] Infective arthritis, hand (HCC); Type 2 or unspecified type diabetes mellitus; Hypertensive kidney disease with chronic kidney disease, stage 1-4; Chronic kidney disease; Encounter for long-term (current) use of other medications Social History Tobacco Use Types Packs/Day Years Used Date Smoking Tobacco: Never Assessed Sex and Gender Information Value Date Recorded Sex Assigned at Not on file Legal 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 ACC# ??Date Time ??Exam [id number] Jun 04, 2016 14:19:00 [id number] Elbow minimum 3 views L EXAMINATION: ?Left [...] represent olecranon bursitis. Requested By: MIRANDA BARILLAS DICTATING TRANSCRIBING MACHINE SERVICER Dictated By: ?? CASSIDY BARRAGAN M.D. ??on Jun 04 2016 ??4:09P This document has been electronically signed by: TONYA MILLER M.D. on Jun 04 2016 ??4:27P [id number] Procedure Note Provider, MD Zev - 12/27/2016 TONYA MILLER M.D. CASSIDY BARRAGAN M.D. FINAL REPORT The radiology attending physician has personally reviewed this study, and has reviewed and/or edited this written report and agrees with it. ACC# Date Time Exam [id number] Jun 04, 2016 14:19:00 [id number] Elbow minimum 3 views L EXAMINATION: Left [...] represent olecranon bursitis. Requested By: MIRANDA BARILLAS DICTATING TRANSCRIBING MACHINE SERVICER Dictated By: CASSIDY BARRAGAN M.D. on Jun 04 2016 4:09P This document has been electronically signed by: TONYA MILLER M.D. on Jun 04 2016 4:27P [id number] Historical Provider IMG XR PROCEDURES Final R esult * DISCHARGE LABORATORY CUMULATIVE REPORT (06/04/2016) Narrative 06/04/2016 Ordered by an unspecified provider. Historical Provider LAB BLOOD ORDERABLES Ann Marie l Result * Serum C-reactive protein (11/21/2014 3:03 AM CDT) C-RP 9.1 0.0 - 9.9 mg/L HISTORICAL RESULTS Serum 11/21/2014 3:03 AM CDT Kerry Chang MD LAB BLOOD ORDERABLES Final Result Performing Organization Address City/[facility] [address] [facility] de Phone Number HISTORICAL RESULTS * (ABNORMAL) Plasma basic metabolic panel (11/21/2014 3:03 AM CDT) Pathologist [facility] Sodium 137 135 - 145 mmol/L HISTORICAL [...] RESULTS Plasma 11/21/2014 3:03 AM CDT Kerry Chagn MD LAB BLOOD ORDERABLES Final Result Performing Organization Address [facility] [address]/[facility] de Phone Number HISTORICAL RESULTS * (ABNORMAL) Blood cell count (CBC) (11/21/2014 3:03 AM CDT) Pathologist [facility] WBC 7.1 3.8 - 9.8 K/cumm HISTORICAL [...] Result Performing Organization Address [facility] [address]/[facility] Co de Phone Number HISTORICAL RESULTS * (ABNORMAL) Blood erythrocyte sedimentation rate (ESR) (11/21/2014 3:03 AM CDT) Erythrocyte sedimentation rate 72.0(H) 0.0 - 12.0 mm/hr HISTORICAL RESULTS Blood specimen (specimen) 11/21/2014 3:03 AM CDT us Kerry Chang MD LAB BLOOD ORDERABLES Final Result Performing Organization Address [facility] Co de Phone Number HISTORICAL RESULTS * Discharge Laboratory Cumulative Report (11/21/2014 12:00 AM CDT) 11/21/2014 Narrative HISTORICAL RESULTS - 11/21/2014 3:20 PM CDT ?[facility] ?Department of Laboratories ? [facility] ? [place] [address] Patient Name: ??JUVENAL GARVIN [facility] Rec Number: [id number] Fin Number: ?[id number] Date: ?1970 Sex/Age: ? Male 44 years Admit Date: ?11/20/2014 Discharge Date: 11/21/2014 Doctor: ?Abelardo Garcia Facility: ?[facility] Location: ?[facility] Chart Printed: 11/21/2014 15:20 [...] ?Test: Neut Pct Auto ??Lymph Pct Auto ??[place] Pct Auto ? Reference: [38.7-74.5] ?[20.0-54.3] ? [4.3-13.5] ? Units: % ?% ? % 11/21/2014 ?? 03:03:00 ?? 43.7 ? 39.2 ?9.7 ?Test: Eos Pct Auto ??Baso Pct Auto ??Neut Abs Auto ? Reference: [0.0-6.0] ? [0.0-3.0] ?[1.8-6.6] ? Units: % ? % ?K/cumm 11/21/2014 ?? 03:03:00 ?? 6.3 ??H ?1.1 ?3.1 ?Test: Lymph Abs Auto ??[place] Abs Auto ??Eos Abs Auto ? Reference: [...] Blood beta-hydroxybutyrate (11/20/2014 9:18 PM CDT) Pathologist [facility] Beta-hydroxybu tyrate, sr 0.2 0.0 - 0.5 mmol/L HISTORICAL RESULTS Blood specimen (specimen) 11/20/2014 9:18 PM CDT Abelardo Garcia MD LAB BLOOD ORDERABLES Final Result Performing Organization Address [facility] de Phone Number HISTORICAL RESULTS * (ABNORMAL) Blood glucose, POC (11/20/2014 9:17 PM CDT) Pathologist [facility] Glucose, POC, bld 254(H) 70 - 199 mg/dl HISTORICAL RESULTS Blood specimen (specimen) 11/20/2014 9:17 PM CDT Historical Provider LAB BLOOD ORDERABLES Ann Marie l Result Performing Organization Address [facility] de Phone Number HISTORICAL RESULTS documented in this encounter Visit Diagnoses Diagnosis Infective arthritis, hand (HCC) Unspecified infective arthritis, hand Type 2 or unspecified type diabetes mellitus Hypertensive kidney disease with chronic kidney disease, stage 1-4 Chronic kidney disease Chronic kidney disease, unspecified Encounter for long-term (current) use of other medications documented in this encounter
--- OUTSIDE RECORDS SUMMARY | 2024-08-24 04:52 | XMS_ITS | Encounter Summary ---
Author Organization [facility] Healthcare Address [address] [place] [address] Care Team Providers Care Postdoctoral Scholar Name Role Phone Jhonatan Bellamy MD Primary Care Provider [phone]- [phone] Encounter Details Date Type Department Care Team (Latest Contact Info) Description 06/13/2017 8:00 AM CDT - 06/13/2017 11:01 AM T Hospital Encounter 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 Date: 06/13/2017 Surgeon: CORINE ARRIAGA M.D. Admit Date: 06/13/2017 Disch. 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 ANESTHESIA General with LMA. PROCEDURE Cataract removal by phacoemulsification and implantation of +21.5 diopter Tecnis [id number] lens right eye. DESCRIPTION OF THE PROCEDURE [...] visually verifying that a 21.5 diopter Tecnis [id number] was the correct lens for this pt, [...] OF CARE TEST ORDERABLES Final Result [facility] [address] [facility] Department [place] [address] * DISCHARGE LABORATORY CUMULATIVE REPORT (06/13/2017 12:00 AM CDT) Narrative 06/13/2017 12:00 AM CDT Ordered by an unspecified provider. Historical Provider LAB BLOOD ORDERABLES Ann Marie l Result documented in this encounter Visit Diagnoses Not on filedocumented in this encounter Care Teams Postdoctoral Scholar Relationship Specialty Start Date End Date Jhonatan Bellamy MD [address] [place] [address] PCP - General 03/25/15 04/16/18 documented as of this encounter
--- OUTSIDE RECORDS SUMMARY | 2024-08-24 04:52 | XMS_ITS | Encounter Summary ---
Author Organization [facility] Facility Care Team Providers Care Sap Gatherer Name Role Phone Jhonatan Bellamy MD Primary Care Provider +1- [phone] Encounter Details Date Type Department Care Team (Late st Contact Info) Description 03/26/2015 6:57 PM CDT - 03/26/2015 11:59 PM CDT Hospital Encounter [facility] Raisa Degroot MD [address] [address] [place]ilet Valerio [place] [address] [place] [address] Arthropathy Social History Tobacco Use Types Packs/Day Years Used Date Smoking Tobacco: Never Assessed Sex and Gender Information Value Date Recorded Sex Assigned at Not on file 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 Gender Identity Not on file Sexual [...] COMPLEMENT Routine 03/26/2015 5:00 PM CDT SERUM XDTF-0-KGROADTRLIDE I, IGA Routine 03/26/2015 5:00 PM CDT SERUM XUPZ-4-ROIPUYEBLITW I IGM Routine 03/26/2015 5:00 PM CDT SERUM ANTINUCLEAR AB (SHAWN) Routine 03/26/2015 5:00 PM CDT SERUM ANTI-EXTRACTABLE NUCLEAR AG (JOSE ENRIQUE), SS-B AB Routine 03/26/2015 5:00 PM CDT SERUM ANTI-EXTRACTABLE NUCLEAR AG (JOSE ENRIQUE), SS-A AB Routine 03/26/2015 5:00 PM CDT SERUM ANTI-EXTRACTABLE NUCLEAR AG (JOSE ENRIQUE), SM/HARDWOOD FLOOR INSTALLER AB Routine 03/26/2015 5:00 PM CDT SERUM [...] Serum 03/26/2015 5:00 PM CDT Yamilet Valerio [place] LAB BLOOD ORDERABLES Fin al Result Performing Organization Address [facility] de Phone Number HISTORICAL RESULTS * Blood HLA B-27 DNA typing (03/26/2015 5:00 PM CDT) Pathologist [facility] HLA-B27 ag B27 is Negative HISTORICAL RESULTS Comment: HLA oligotyping is determined utilizing polymerase chain reaction technology. ??Low resolution typing is performed using sequence specific primers (SSP) and Luminex based r-SSO. ??High resolution technology is performed using Cheryle Sequenced Based Typing (SBT). ??SSP, Luminex rSSO and SBT are designated IVD by the U.S. Food and Drug Administration. Mark Cabrera Ph.D. Director, HLA Laboratory. Miscellaneous 03/26/2015 5:0 0 PM CDT [facility]LOOD [facility]ABLES Fin al Result Performing Organization Address [facility] de Phone Number HISTORICAL RESULTS * Serum Hepatitis B core ab (03/26/2015 5:00 PM CDT) Pathologist [facility] HBV core ab Negative Negative HISTORIC AL RESULTS Serum 03/26/2015 5:00 PM CDT Result [facility] LAB BLOOD ORDERABLES Fin al Result Performing Organization Address [facility] de Phone Number HISTORICAL RESULTS * Serum anti-extractable nuclear ag (JOSE ENRIQUE), SS-B ab (03/26/2015 5:00 PM CDT) Pathologist [facility] Anti-JOSE ENRIQUE, SS-B <1.0 NEG <1.0NEG AI HISTORICAL RESULTS Comment: [facility] [address] [place], [place] ??[phone] ANA REYES DO,MPH Serum 03/26/2015 5:00 PM CDT Yamilet Valerio [place] LAB BLOOD ORDERABLES Fin al Result Performing Organization Address [facility] de Phone Number HISTORICAL RESULTS * Serum anti-extractable nuclear ag (JOSE ENRIQUE), SS-A ab (03/26/2015 5:00 PM CDT) Anti-JOSE ENRIQUE, SS-A <1.0 NEG <1.0NEG AI HISTORICAL RESULTS Comment: Test performed at [facility] [place] [id number] [place], [place] ??[phone] ANA REYES DO,MPH Serum 03/26/2015 5:00 PM CDT Yamilet Valerio [place] LAB BLOOD ORDERABLES Fin al Result Performing Organization Address [facility] de Phone Number HISTORICAL RESULTS * Serum antinuclear ab (SHAWN) (03/26/2015 5:00 PM CDT) Pathologist [facility] SHAWN, qual Negative NEGATIVE HISTORICAL RESULTS Comment: Test performed at [facility] [address] ??[phone] ANA REYES DO,MPH Serum 03/26/2015 5:00 PM CDT Yamilet Valerio [place] LAB BLOOD ORDERABLES Fin al Result Performing Organization Address [facility] de Phone Number HISTORICAL [...] ??The following results were obtained with the Str[employer] QUANTLiteTM IgG and IgM III ABRAHAM. ??Cardiolipin [...] ??The following results were obtained with the [employer] QUANTLiteTM IgA III ABRAHAM. ??Caridolipin IgA values [...] Serum 03/26/2015 5:00 PM CDT Yamilet Valerio [place] LAB BLOOD ORDERABLES Fin al Result Performing Organization Address [facility] de Phone Number HISTORICAL RESULTS * Serum anti-extractable nuclear ag (JOSE ENRIQUE), SM/HARDWOOD FLOOR INSTALLER ab (03/26/2015 5:00 PM CDT) Pathologist [facility] Anti-JOSE ENRIQUE, SM <1.0 NEG <1.0NEG AI HISTORICAL RESULTS JOSE ENRIQUE, SM/HARDWOOD FLOOR INSTALLER Ab <1.0 NEG <1.0NEG AI HISTORICAL RESULTS Comment: Test performed at [facility] [address] [place], [place] ??[phone] ANA REYES DO,MPH Serum 03/26/2015 5:00 PM CDT Yamilet Valerio [place] LAB BLOOD ORDERABLES Fin al Result Performing Organization Address [facility] de Phone Number HISTORICAL RESULTS * Serum Trinidad-1 ab (03/26/2015 5:00 PM CDT) Pathologist [facility] Anti-TRINIDAD-1 <1.0 NEG <1.0NEG AI HISTORICAL RESULTS Comment: Test performed at [facility] [address] ??[phone] ANA REYES DO,MPH Serum 03/26/2015 5:00 PM CDT Yamilet Woodall Iman [place] LAB BLOOD ORDERABLES Fin al Result Performing Organization Address [facility] de Phone Number HISTORICAL RESULTS * Serum double-stranded DNA ab (03/26/2015 5:00 PM CDT) [facility] Anti-double stranded DNA, quant 2 IUnits/ml HISTORIC AL RESULTS Comment: IU/mL ? Interpretation ? < or = 4 ?Negative ? 5-9 ? Indeterminate ? > or = 10 ?? Positive Test performed at [facility] [address] ??[phone] ANA REYES DO,MPH Serum 03/26/2015 5:00 PM CDT Yamilet Woodall Iman [place] LAB BLOOD ORDERABLES Fin al Result Performing Organization Address [facility] de Phone Number HISTORICAL RESULTS * Serum cmle-2-axlczkmhlezn I IgM (03/26/2015 5:00 PM CDT) [facility] Beta-2 glycoprotein I, IgM <4.0 <10.0(Nega tive) Units/ml HISTORICAL RESULTS Beta-2 glycoprotein I, IgG <4.0 <10.0(Nega tive) Units/ml HISTORICAL RESULTS Serum 03/26/2015 5:00 PM CDT Yamilet Shuklaricky [place] LAB BLOOD ORDERABLES Fin al Result Performing Organization Address [facility] de Phone Number HISTORICAL RESULTS * (ABNORMAL) Serum angiotensin-converting enzyme (NICOLÁS) (03/26/2015 5:00 PM CDT) NICOLÁS 8(L) 10 - 55 Units/L HISTORICAL RESULTS Serum 03/26/2015 5:00 PM CDT Result [facility] Yamilet Hernándezeaston [place] LAB BLOOD ORDERABLES Fin al Result Performing Organization Address [facility] de Phone Number HISTORICAL [...] updated copy of the Tool Book at [email or web address] Current Interpretive Data was last revised 2011. [...] ORDERABLES Fin al Result Performing Organization Address [facility] de Phone Number HISTORICAL RESULTS * Serum Kneg-6-moaailicjcpl I, IgA (03/26/2015 5:00 PM CDT) [facility] Beta-2 glycoprotein I, IgA <4.0 <10.0(Nega tive) Units/ml HISTORICAL RESULTS Serum 03/26/2015 5:00 PM CDT Result [facility] Yamilet Calixchase [place] LAB BLOOD ORDERABLES Fin al Result Performing Organization Address [facility] de Phone Number HISTORICAL RESULTS * Serum rheumatoid factor (03/26/2015 5:00 PM CDT) Pathologist [facility] Rheumatoid factor, quant 10 <14 IUnits/ml HISTORICAL RESULTS Comment: Test performed at [facility] [address] ??[phone] ANA REYES DO,MPH Serum 03/26/2015 5:00 PM CDT Result [facility] LAB BLOOD ORDERABLES Fin al Result Performing Organization Address [facility] Phone Number HISTORICAL RESULTS * Serum cyclic citrullinated peptide IgG 3rd generation (03/26/2015 5:00 PM CDT) [facility] CCP3 IgG <15.6 0.0 - 19.0 units HISTORICAL RESULTS Comment: Interpretive Data The following results were obtained with the [employer]Cloud Quanta Lite CCP3 IgG ABRAHAM. ??Anti-CCP values [...] Serum 03/26/2015 5:00 PM CDT Yamilet Valerio [place] LAB BLOOD ORDERABLES Fin al Result Performing Organization Address [facility] de Phone Number HISTORICAL RESULTS * (ABNORMAL) Serum complement (03/26/2015 5:00 PM CDT) Complement hemolytic 161(H) 63 - 145 HISTORICAL RESULTS Serum 03/26/2015 5:00 PM CDT Yamilet Valerio [place] LAB BLOOD ORDERABLES Fin al Result Performing Organization Address [facility] de Phone Number HISTORICAL RESULTS * (ABNORMAL) Blood erythrocyte sedimentation rate (ESR) (03/26/2015 5:00 PM CDT) Pathologist [facility] Erythrocyte sedimentation rate 16.0(H) 0.0 - 10.0 mm/hr HISTORICAL RESULTS Blood specimen (specimen) 03/26/2015 5:00 PM CDT Yamilet Valerio [place] LAB BLOOD ORDERABLES Fin al Result Performing Organization Address [facility] de Phone Number HISTORICAL RESULTS * [...] Blood specimen (specimen) 03/26/2015 5:00 PM CDT [facility] Talisha Hernándezinricky [place] LAB BLOOD ORDERABLES Fin al Result Performing Organization Address [facility] de Phone Number HISTORICAL [...] HISTORICAL RESULTS Urine 03/26/2015 5:00 PM CDT [facility] Talisha Valerio [place] LAB BLOOD ORDERABLES Fin al Result Performing Organization Address [facility] de Phone Number HISTORICAL [...] RESULTS Urine 03/26/2015 5:00 PM CDT Result [facility] Yamilet Calixchase [place] LAB BLOOD ORDERABLES Fin al Result Performing Organization Address [facility] de Phone Number HISTORICAL RESULTS * Serum Hepatitis B surface ag (03/26/2015 5:00 PM CDT) HBV surface ag Non-Reacti ve Non-Reacti ve HISTORICAL RESULTS Serum 03/26/2015 5:00 PM CDT Result [facility] Yamilet Shuklaricky [place] LAB BLOOD ORDERABLES Fin al Result Performing Organization Address [facility] de Phone Number HISTORICAL RESULTS * Serum Hepatitis C ab (03/26/2015 5:00 PM CDT) HCV ab Non-Reacti ve Non-Reacti ve HISTORICAL RESULTS Serum 03/26/2015 5:00 PM CDT Result [facility] Yamilet Shuklaricky [place] LAB BLOOD ORDERABLES Fin al Result Performing Organization Address [facility] de Phone Number HISTORICAL RESULTS * [...] 09/27/2011, C-Reactive Protein testing is performed at [facility] Laboratory. The Reference Range has changed. Plasma 03/26/2015 5:00 PM CDT Yamilet [facility] LAB BLOOD ORDERABLES Fin al Result HISTORICAL RESULTS * Plasma creatine kinase (CK) (03/26/2015 5:00 PM CDT) CK 297 49 - 397 IUnits/L HISTORICAL RESULTS Plasma 03/26/2015 5:00 PM CDT Yamilet Shuklaricky [facility] LAB BLOOD ORDERABLES Fin al Result Performing Organization Address [facility] Phone Number HISTORICAL RESULTS * (ABNORMAL) Plasma complement C4 (03/26/2015 5:00 PM CDT) Complement C4 78(H) 18 - 55 mg/dl HISTORICAL RESULTS Comment:Please Note: As of N 2011, the reference range has changed. Plasma 03/26/2015 5:00 PM CDT Yamilet Calixchase [facility] LAB BLOOD ORDERABLES Fin al Result Performing Organization Address [facility] Phone Number HISTORICAL RESULTS * (ABNORMAL) Plasma uric acid (03/26/2015 5:00 PM CDT) Uric acid 12.3(H) 3.5 - 8.5 mg/dl HISTORICAL RESULTS Plasma 03/26/2015 5:00 PM CDT Result [facility] Yamilet Shuklaricky [facility] LAB BLOOD ORDERABLES Fin al Result Performing Organization Address [facility] Phone Number HISTORICAL RESULTS * Plasma complement C3 (03/26/2015 5:00 PM CDT) Complement C3 140 79 - 152 mg/dl HISTORICAL RESULTS Plasma 03/26/2015 5:00 PM CDT Result [facility] Yamilet Woodall Iman [facility] LAB BLOOD ORDERABLES Fin al Result Performing Organization Address [facility] de Phone Number HISTORICAL RESULTS * Blood direct antiglobulin test (03/26/2015 5:00 PM CDT) Maribel, direct, IgG Negative HISTORICAL RESULTS Maribel, direct, complement Negative HISTORICAL RESULTS Blood specimen (specimen) 03/26/2015 5:00 PM CDT Result [facility] Yamilet Woodall Iman [facility] LAB BLOOD ORDERABLES Fin al Result HISTORICAL RESULTS * DISCHARGE LABORATORY CUMULATIVE REPORT (03/26/2015) Narrative 03/26/2015 Ordered by an unspecified provider. us Historical Provider LAB BLOOD ORDERABLES Ann Marie l Result documented in this encounter Visit Diagnoses Diagnosis Arthropathy Unspecified arthropathy, site unspecified documented in this encounter Care Teams Sap Gatherer Relationship Specialty Start Date End Date Jhonatan Bellamy MD [address] [place], [place] [id number] PCP - General 03/25/15 04/16/18 documented as of this encounter
--- OUTSIDE RECORDS SUMMARY | 2024-08-24 04:52 | XMS_ITS | Encounter Summary ---
Author Organization 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
--- OUTSIDE RECORDS SUMMARY | 2024-08-24 04:52 | XMS_ITS | Encounter Summary ---
Author Organization [facility] Healthcare Address [address] [place] [address] Care Team Providers Care Delivery Crew Member Name Role Phone Jhonatan Bellamy MD Primary Care Provider +1- [phone] Encounter Details Date Type Department Care Team (Late st Contact Info) Description 04/28/2017 4:41 PM CDT - 04/28/2017 11:59 PM CDT Hospital Encounter 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 Historical Provider LAB BLOOD ORDERABLES Ann Marie l Result documented in this encounter Visit Diagnoses Not on filedocumented in this encounter Care Teams Delivery Crew Member Relationship Specialty Start Date End Date Jhonatan Bellamy MD [address] [place] [address] PCP - General 03/25/15 04/16/18 documented as of this encounter
--- OUTSIDE RECORDS SUMMARY | 2024-08-24 04:52 | XMS_ITS | Encounter Summary ---
Author Organization 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 Dictating: Ana Chao [...] Primary care physician equals Jhonatan Bellamy M.D. Dominatrix equals Jonnie. MEDICATIONS: 1. Lantus 68 units [...] M.D. 11/06/2013 12:21 P Anurag Ojeda M.D. [facility] #[id number] Editing MT: TD: 11/05/2013 21:38:00 cc: Dorys [...] ORDERABL ES Final Result Performing Organization Address [facility] de Phone Number HISTORICAL RESULTS * (ABNORMAL) Blood glucose, POC (11/07/2013 8:49 AM CDT) Glucose, POC, bld 388(H) 70 - 199 mg/dl HISTORICAL RESULTS Blood specimen (specimen) 11/07/2013 8:49 AM CDT us Anurag Ojeda MD PhD LAB BLOOD ORDERABL ES Final Result Performing Organization Address [facility] de Phone Number HISTORICAL RESULTS * (ABNORMAL) Blood glucose, POC (11/07/2013 7:14 AM CDT) Glucose, POC, bld 328(H) 70 - 199 mg/dl HISTORICAL RESULTS Blood specimen (specimen) 11/07/2013 7:14 AM CDT us Anurag Ojeda MD PhD LAB BLOOD ORDERABL ES Final Result Performing Organization Address [facility] de Phone Number HISTORICAL RESULTS * Discharge Laboratory Cumulative Report (11/07/2013 12:00 AM CDT) 11/07/2013 Narrative HISTORICAL RESULTS - 11/07/2013 3:25 PM CDT ?[facility] ?Department of Laboratories ? [facility] [place] ? [place] [address] Patient Name: ??JUVENAL GARVIN [facility] Rec Number: [id number] Fin Number: ?[id number] Date: ?1970 Sex/Age: ? Male 43 years Admit Date: ?11/05/2013 Discharge Date: 11/07/2013 Doctor: ?[facility] , 1302 Facility: ?[facility] Location: ?0101 02 [id number] Chart Printed: 11/07/2013 15:25 ?? * Abnormal [...] TESTING children were not included. ??(Diabetes Care 31:3595-8902, 2008). ??The eAG is not equivalent to [...] for the diagnosis of myocardial infarction (Third [place] Definition of Myocardial Infarction. ??J Am Elena Cardiol 2012;60:1581-98). Current interpretive data was last revised on 13. ?URINALYSIS ?Macroscopic ?Test: Color ? Clarity ??Specific Lorida ??pH ? Reference: [Yellow] ??[Clear] ??[1.003-1.030] ? [...] ?Test: Neut Pct Auto ??Lymph Pct Auto ??Refugio Pct Auto ? Reference: [38.7-74.5] ?[20.0-54.3] ? [4.3-13.5] ? Units: % ?% ? % 11/05/2013 ?? 09:37:56 ?? 41.7 ? 41.2 ?12.4 ? AUTOMATED WHITE CELL DIFFERENTIAL ?Test: Eos Pct Auto ??Baso Pct Auto ??Neut Abs Auto ? Reference: [0.0-6.0] ? [0.0-3.0] ?[1.8-6.6] ? Units: % ? % ?K/cumm 11/05/2013 ?? 09:37:56 ?? 3.8 ? 0.9 ?2.4 ?Test: Lymph Abs Auto ??Refugio Abs Auto ??Eos Abs Auto ? Reference: [...] updated copy of the Tool Book at [email or web address] Current Interpretive Data was last revised [...] Ann Marie l Result Performing Organization Address [facility] de Phone Number HISTORICAL RESULTS * (ABNORMAL) Blood glucose, POC (11/06/2013 9:27 PM CDT) Glucose, POC, bld 402(H) 70 - 199 mg/dl HISTORICAL RESULTS Blood specimen (specimen) 11/06/2013 9:27 PM CDT Anurag Ojeda MD PhD LAB BLOOD ORDERABL ES Final Result Performing Organization Address [facility] de Phone Number HISTORICAL RESULTS * (ABNORMAL) Blood glucose, POC (11/06/2013 5:22 PM CDT) Glucose, POC, bld 388(H) 70 - 199 mg/dl HISTORICAL RESULTS Blood specimen (specimen) 11/06/2013 5:22 PM CDT Anurag Ojeda MD PhD LAB BLOOD ORDERABL ES Final Result Performing Organization Address [facility] de Phone Number HISTORICAL RESULTS * (ABNORMAL) Blood glucose, POC (11/06/2013 11:41 AM CDT) Glucose, POC, bld 373(H) 70 - 199 mg/dl HISTORICAL RESULTS Blood specimen (specimen) 11/06/2013 11:41 AM CDT Anurag Ojeda MD PhD LAB BLOOD ORDERABL ES Final Result Performing Organization Address [facility] de Phone Number HISTORICAL RESULTS * (ABNORMAL) Blood glucose, POC (11/06/2013 7:26 AM CDT) Glucose, POC, bld 304(H) 70 - 199 mg/dl HISTORICAL RESULTS Blood specimen (specimen) 11/06/2013 7:26 AM CDT Anurag Ojeda MD PhD LAB BLOOD ORDERABL ES Final Result Performing Organization Address [facility] de Phone Number HISTORICAL RESULTS * Serum troponin I (11/06/2013 6:12 AM CDT) Troponin I <0.03 0.00 - 0.03 ng/ml HISTORICAL RESULTS Comment: Interpretive Data Serial determinations are recommended for the diagnosis of myocardial infarction (Third [place] Definition of Myocardial Infarction. ??J Am Elena Cardiol 2012;60:1581-98). Current interpretive data was last revised on 13. Serum 11/06/2013 6:12 AM CDT Ana Chao IV, MD PhD LAB BLOOD ORDERA BLES Final Result Performing Organization Address [facility] de Phone Number HISTORICAL RESULTS * (ABNORMAL) Blood glucose, POC (11/06/2013 2:06 AM CDT) Glucose, POC, bld 329(H) 70 - 199 mg/dl HISTORICAL RESULTS Blood specimen (specimen) 11/06/2013 2:06 AM CDT us Anurag Ojeda MD PhD LAB BLOOD ORDERABL ES Final Result Performing Organization Address City/[facility] Co de Phone Number HISTORICAL RESULTS * Blood B-type natriuretic peptide (BNP) (11/05/2013 10:11 PM CDT) BNP 13 0 - 100 pg/ml HISTORICAL RESULTS Blood specimen (specimen) 11/05/2013 10:11 PM CDT Ana Cruz MD LAB BLOOD ORDERABLES Fi nal Result Performing Organization Address [facility] Co de Phone Number HISTORICAL RESULTS * (ABNORMAL) Blood hemoglobin A1C (11/05/2013 10:11 PM CDT) Pathologist [facility] Hgb A1C 10.1(H) 4.0 - 6.0 % HISTORICAL RESULTS Estimated average glucose 243 mg/dl HISTORICAL RESULTS Comment: The ADA recommends reporting an estimated Average Glucose (eAG) with all Hemoglobin A1c results using the equation derived from a study of 507 normal and diabetic adults. ??Minority populations were underrepresented and children were not included. ??(Diabetes Care 31:0293-9644, 2008). ??The eAG is not equivalent to a fasting glucose. Blood specimen (specimen) 11/05/2013 10:11 PM CDT Ana Cruz MD LAB BLOOD ORDERABLES Fi nal Result Performing Organization Address [facility] de Phone Number HISTORICAL RESULTS * Serum troponin I (11/05/2013 9:47 PM CDT) [facility] Troponin I <0.03 0.00 - 0.03 ng/ml HISTORICAL RESULTS Comment: Interpretive Data Serial determinations are recommended for the diagnosis of myocardial infarction (Third [place] Definition of Myocardial Infarction. ??J Am Elena Cardiol 2012;60:1581-98). Current interpretive data was last revised on 13. Serum 11/05/2013 9:47 PM CDT Ana Chao IV, MD PhD LAB BLOOD ORDERA BLES Final Result Performing Organization Address [facility] Co de Phone Number HISTORICAL RESULTS * (ABNORMAL) Blood glucose, POC (11/05/2013 9:16 PM CDT) Pathologist [facility] Glucose, POC, bld 397(H) 70 - 199 mg/dl HISTORICAL RESULTS Blood specimen (specimen) 11/05/2013 9:16 PM CDT Anurag Ojeda MD PhD LAB BLOOD ORDERABL ES Final Result Performing Organization Address [facility] de Phone Number HISTORICAL RESULTS * (ABNORMAL) Blood glucose, POC (11/05/2013 7:01 PM CDT) Glucose, POC, bld 331(H) 70 - 199 mg/dl HISTORICAL RESULTS Blood specimen (specimen) 11/05/2013 7:01 PM CDT us Ana Cruz MD LAB BLOOD ORDERABLES Fi nal Result Performing Organization Address [facility] Co de Phone Number HISTORICAL RESULTS * (ABNORMAL) Blood glucose, POC (11/05/2013 2:36 PM CDT) Glucose, POC, bld 203(H) 70 - 199 mg/dl HISTORICAL RESULTS Gluc, com 1, bld RN Notified HISTORICAL RESULTS Blood specimen (specimen) 11/05/2013 2:36 PM CDT us Historical Provider LAB BLOOD ORDERABLES Ann Marie l Result Performing Organization Address [facility] de Phone Number HISTORICAL RESULTS * (ABNORMAL) Serum iron profile (11/05/2013 2:30 PM CDT) [facility] Iron 32(L) 45 - 160 mcg/dl HISTORICAL RESULTS UIBC 210 mcg/dl HISTORICAL RESULTS TIBC 242 220 - 420 mcg/dl HISTORICAL RESULTS Transferrin saturation 13(L) 20 - 50 % HISTORICAL RESULTS Serum 11/05/2013 2:30 PM CDT us Kerry Martinez MD LAB BLOOD ORDERABLES Final Result Performing Organization Address [facility] de Phone Number HISTORICAL RESULTS * Serum troponin I (11/05/2013 2:30 PM CDT) Pathologist [facility] Troponin I <0.03 0.00 - 0.03 ng/ml HISTORICAL RESULTS Comment: Interpretive Data Serial determinations are recommended for the diagnosis of myocardial infarction (Third [place] Definition of Myocardial Infarction. ??J Am Elena Cardiol 2012;60:1581-98). Current interpretive data was last revised on 13. Serum 11/05/2013 2:30 PM CDT Kerry Martinez MD LAB BLOOD ORDERABLES Final Result Performing Organization Address [facility] de Phone Number HISTORICAL RESULTS * Serum ferritin (11/05/2013 2:30 PM CDT) Ferritin 110 22 - 322 ng/ml HISTORICAL RESULTS Serum 11/05/2013 2:30 PM CDT Result [facility] Kerry Martinez MD LAB BLOOD ORDERABLES Final Result Performing Organization Address [facility] de Phone Number HISTORICAL RESULTS * [...] ORDERABLES Fi nal Result Performing Organization Address [facility] de Phone Number HISTORICAL RESULTS * [...] CDT Ana Cruz MD LAB BLOOD ORDERABLES [facility] Result Performing Organization Address [facility] de Phone Number HISTORICAL RESULTS * Plasma partial thromboplastin time (PTT) (11/05/2013 9:37 AM CDT) APTT 30.9 25.0 - 37.0 seconds HISTORICAL RESULTS Comment: Interpretive Data Therapeutic heparin range:60.0 - 94.0 sec based on correlation with therapeutic heparin activity range of 0.3 -0.7 Units/mL. Current interpretive data was last revised on 2011. Plasma 11/05/2013 9:37 AM CDT Ana Cruz MD LAB BLOOD ORDERABLES [facility] Result Performing Organization Address [facility] de Phone Number HISTORICAL RESULTS * [...] ORDERABLES Fi nal Result Performing Organization Address [facility] Co de Phone Number HISTORICAL RESULTS * Serum troponin I (11/05/2013 9:37 AM CDT) Troponin I <0.03 0.00 - 0.03 ng/ml HISTORICAL RESULTS Comment: Interpretive Data Serial determinations are recommended for the diagnosis of myocardial infarction (Third [place] Definition of Myocardial Infarction. ??J Am Elena Cardiol 2012;60:1581-98). Current interpretive data was last revised on 13. Serum 11/05/2013 9:37 AM CDT Ana Cruz MD LAB BLOOD ORDERABLES nal Result Performing Organization Address [facility] de Phone Number HISTORICAL RESULTS * Plasma [...] updated copy of the Tool Book at [email or web address] Current Interpretive Data was last revised [...] agrees with it. ACC# ??Date Time ??Exam [id number] Nov 05, 2013 09:15:00 [id number] Chest 2 views Frontl & Lat EXAMINATION: [...] agrees with it. ACC# Date Time Exam [id number] Nov 05, 2013 09:15:00 [id number] Chest 2 views Frontl & Lat EXAMINATION: [...] MURPHY M.D. on Nov 05 2013 10:39A [facility] Provider IMG XR PROCEDURES Final R esult * ELECTROCARDIOGRAPHY (ECG) (11/05/2013) Narrative 11/05/2013 Ordered by an unspecified provider. [facility] Provider ECG ORDERABLES Final Res ult * ELECTROCARDIOGRAPHY (ECG) (11/05/2013) Narrative 11/05/2013 Ordered by an unspecified provider. [facility] Provider ECG ORDERABLES Final Res ult * ELECTROCARDIOGRAPHY (ECG) (11/05/2013) Narrative 11/05/2013 Ordered by an unspecified provider. [facility] Provider ECG ORDERABLES Final Res ult documented [...]
--- OUTSIDE RECORDS SUMMARY | 2024-08-24 04:52 | XMS_ITS | Encounter Summary ---
Author Organization [facility] Medical [facility] Address [address] [facility] [address] [place] [address] Care Team Providers Care Handicrafts Teacher Name Role Phone Jhonatan Bellamy MD Primary Care Provider [phone]- [phone] Pedro Lakhani MD Primary Care Provider Eugenia Hughes MD Primary Care Provider +1- [phone] Aditya Castro MD Primary Care Provider [phone] Encounter Details Date Type Department Care Team (Late st Contact Info) Description 06/26/2017 Orders Only [facility] Cardiology [address] [facility] [address] [place] [address] Provider, MD Zev [address] [place] [address] Social History Tobacco Use Types Packs/Day Years Used Date Smoking Tobacco: Never Smokeless Tobacco: Former Alcohol Use Standard Drinks/Week Comments No 0 (1 standard drink = 0.6 oz pur e alcohol) Sex and Gender Information Value Date Recorded Sex Assigned at Not on file 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 Gender Identity Not on file Sexual Orientation [...] on filedocumented in this encounter Care Teams Handicrafts Teacher Relationship Specialty Start Date End Date Jhonatan Bellamy MD [address] [place] [address] PCP - General 03/25/15 04/16/18 Pedro Lakhani MD [address] [place] [address] PCP - General Family Practice 04/17/18 04/18/18 Eugenia Hughes MD [address] [place] [address] PCP - General Family Practice 04/19/18 10/16/19 Aditya Castro MD [address] [facility] [place] [address] PCP - General 10/17/19 documented as of this encounter
--- OUTSIDE RECORDS SUMMARY | 2024-08-24 04:52 | XMS_ITS | Encounter Summary ---
Author Organization [facility] Medical Group Address [address] [address] Care Team Providers Care Prenatal Nurse Name Role Phone Jhonatan Bellamy MD Primary Care Provider [phone]- [phone] Pedro Lakhani MD Primary Care Provider Eugenia Hughes MD Primary Care Provider [phone]- [phone] Aditya Castro MD Primary Care Provider [phone] Encounter Details Date Type Department Care Team (Late st Contact Info) Description 06/12/2017 Telephone [facility] [address] [address] Abelardo Petit MD [address] [facility] [address] [address] Social History Tobacco Use Types Packs/Day Years Used Date Smoking Tobacco: Never Smokeless Tobacco: Former Alcohol Use Standard Drinks/Week Comments No 0 (1 standard drink = 0.6 oz pur e alcohol) Sex and Gender Information Value Date Recorded Sex Assigned at Not on file 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 Gender Identity Not on file Sexual Orientation Not on file documented as of this encounter Plan of Treatment Not on file documented as of this encounter Visit Diagnoses Not on filedocumented in this encounter Care Teams Prenatal Nurse Relationship Specialty Start Date End Date Jhonatan Bellamy MD [address] [place] [address] PCP - General 03/25/15 04/16/18 Pedro Lakhani MD [address] [place] [address] PCP - General Family Practice 04/17/18 04/18/18 Eugenia Hughes MD [address] [place] [address] PCP - General Family Practice 04/19/18 10/16/19 Aditya Castro MD [address] [facility] [place] [address] PCP - General 10/17/19 documented as of this encounter
--- OUTSIDE RECORDS SUMMARY | 2024-08-24 04:52 | XMS_ITS | Encounter Summary ---
Author Organization [facility] Medical Group Address [address] [address] Care Team Providers Care Format Proofreader Name Role Phone Jhonatan Bellamy MD Primary Care Provider [phone]- [phone] Encounter Details Date Type Department Care Team (Late st Contact Info) Description 05/05/2017 Telephone [facility] [address] [address] Abelardo Petit MD [address] [facility] [address] [address] Social History Tobacco Use Types Packs/Day Years Used Date Smoking Tobacco: Never Smokeless Tobacco: Former Alcohol Use Standard Drinks/Week Comments No 0 (1 standard drink = 0.6 oz pur e alcohol) Sex and Gender Information Value Date Recorded Sex Assigned at Not on file 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
--- OUTSIDE RECORDS SUMMARY | 2024-08-24 04:52 | XMS_ITS | Encounter Summary ---
Author Organization [facility] Medical [facility] Address [address] [address] Care Team Providers Care Hide Measuring Machine Operator Name Role Phone Jhonatan Bellamy MD Primary Care Provider [phone]- [phone] Encounter Details Date Type Department Care Team (Late st Contact Info) Description 06/14/2017 Telephone [facility] [address] [address] Abelardo Petit MD [address] [facility] [address] [address] Social History Tobacco Use Types Packs/Day Years Used Date Smoking Tobacco: Never Smokeless Tobacco: Former Alcohol Use Standard Drinks/Week Comments No 0 (1 standard drink = 0.6 oz pur e alcohol) Sex and Gender Information Value Date Recorded Sex Assigned at Not on file 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
--- OUTSIDE RECORDS SUMMARY | 2024-08-24 04:52 | XMS_ITS | Encounter Summary ---
Author Organization [facility] Medical [facility] Address [address] [address] Care Team Providers Care Professor Of English Name Role Phone Jhonatan Bellamy MD Primary Care Provider +1- [phone] Encounter Details Date Type Department Care Team (Late st Contact Info) Description 07/05/2017 Telephone [facility] [address] [address] Abelardo Petit MD [address] [facility] [address] [address] Social History Tobacco Use Types Packs/Day Years Used Date Smoking Tobacco: Never Smokeless Tobacco: Former Alcohol Use Standard Drinks/Week Comments No 0 (1 standard drink = 0.6 oz pur e alcohol) Sex and Gender Information Value Date Recorded Sex Assigned at Not on file 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 R LODGE CLERK documented in this encounter Plan of Treatment Not on file documented as of this encounter Visit Diagnoses Not on filedocumented in this encounter Care Teams Professor Of English Relationship Specialty Start Date End Date Maleonelh, Jhonatan E., MD [address] [place] [address] PCP - General 03/25/15 04/16/18 documented as of this encounter
--- OUTSIDE RECORDS SUMMARY | 2024-08-24 04:52 | XMS_ITS | Encounter Summary ---
Author Organization [facility] Address [address] [address] Care Team Providers Care Diaphragm Builder Name Role Phone Jhonatan Bellamy MD Primary Care Provider +1- [phone] Encounter Details Date Type Department Care Team (Late st Contact Info) Description 05/22/2017 Telephone [facility] [address] [address] Abelardo Petit MD [address] [facility] [address] [address] Social History Tobacco Use Types Packs/Day Years Used Date Smoking Tobacco: Never Smokeless Tobacco: Former Alcohol Use Standard Drinks/Week Comments No 0 (1 standard drink = 0.6 oz pur e alcohol) Sex and Gender Information Value Date Recorded Sex Assigned at Not on file 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
--- OUTSIDE RECORDS SUMMARY | 2024-08-24 04:52 | XMS_ITS | Encounter Summary ---
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
--- OUTSIDE RECORDS SUMMARY | 2024-08-24 04:52 | XMS_ITS | Encounter Summary ---
Author Organization [facility] Address [address] [facility] [address] [place] [id number] Care Team Providers Care Innovations Paraprofessional Name Role Phone Jhonatan Bellamy MD Primary Care Provider +1- [phone] Encounter Details Date Type Department Care Team (Late st Contact Info) Description 06/13/2017 Telephone [facility] [address] [phone] Abelardo Petit MD [address] [facility] [address] [address] Social History Tobacco Use Types Packs/Day Years Used Date Smoking Tobacco: Never Smokeless Tobacco: Former Alcohol Use Standard Drinks/Week Comments No 0 (1 standard drink = 0.6 oz pur e alcohol) Sex and Gender Information Value Date Recorded Sex Assigned at Not on file 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
--- OUTSIDE RECORDS SUMMARY | 2024-08-24 04:52 | XMS_ITS | Encounter Summary ---
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
--- OUTSIDE RECORDS SUMMARY | 2024-08-24 04:52 | XMS_ITS | Encounter Summary ---
Author Organization [facility] Address [address] [address] Care Team Providers Care Motion Pictures Cartoonist Name Role Phone Jhonatan Bellamy MD Primary Care Provider +1- [phone] Encounter Details Date Type Department Care Team (Late st Contact Info) Description 07/04/2017 Telephone [facility] [address] [phone] Abelardo Petit MD [address] [facility] [address] [address] Social History Tobacco Use Types Packs/Day Years Used Date Smoking Tobacco: Never Smokeless Tobacco: Former Alcohol Use Standard Drinks/Week Comments No 0 (1 standard drink = 0.6 oz pur e alcohol) Sex and Gender Information Value Date Recorded Sex Assigned at Not on file 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 OL COMMISSIONER documented in this encounter Plan of Treatment Not on file documented as of this encounter Visit Diagnoses Not on filedocumented in this encounter Care Teams [employer] Pictures Cartoonist Relationship Specialty Start Date End Date Malench, Jhonatan E., MD [address] [place] [address] PCP - General 03/25/15 04/16/18 documented as of this encounter
--- OUTSIDE RECORDS SUMMARY | 2024-08-24 05:37 | XMS_ITS | Data Portability ---
Author Organization [facility] [place], Main Office Address [address] [place] [address] Care Team Providers Care Product Lead Name Role Phone ADITYA CASTRO Primary Care Provider ADITYA CASTRO Referring Provider ADITYA CASTRO Primary Care Provider [phone] Assessment Encounter Date Assessment Date Assessment LastModified [...] per schedule. Cont f/u with Endo at [place] as per schedule. Cont f/u with Spine as per schedule. Cont f/u with Rheumat at [facility] as per schedule. Cont f/u with Surg as per schedule. Cont f/u with Cardio at [facility] as per schedule. Cont f/u with Nephro at [facility] as per schedule. Cont f/u with Hemat at [place] as per schedule. Cont f/u with Bartender Helper as per schedule. Cont f/u with Ophtho at as per schedule. Cont f/u with Derm at [facility] as per schedule. Cont f/u with Dr. Langley (Hand surgeon) at as per schedule. Educated pt about alarming symptoms to monitor at home and call us back or get checked in ED. Pt had acute renal failure and was admitted hospital due to s/e from Allopurinol as per his Paving Contractor. So pt can not take any Allopurinol [...] in 2-3 weeks. Annual labs in 05/15. [email or web address] Not available 05/07/2024 09:34:08 05/10/2024 05/10/2024 By [...] per schedule. Cont f/u with Endo at [place] as per schedule. Cont f/u with Spine as per schedule. Cont f/u with Rheumat at [facility] as per schedule. Cont f/u with Surg as per schedule. Cont f/u with Cardio at [facility] as per schedule. Cont f/u with Nephro at [facility] as per schedule. Cont f/u with Hemat at [place] as per schedule. Cont f/u with Bartender Helper as per schedule. Cont f/u with Ophtho at as per schedule. Cont f/u with Derm at [facility] as per schedule. Cont f/u with Dr. Langley (Hand surgeon) at as per schedule. Educated pt about alarming symptoms to monitor at home and call us back or get checked in ED. Pt had acute renal failure and was admitted hospital due to s/e from Allopurinol as per his Paving Contractor. So pt can not take any Allopurinol [...] in 3-4 months. Annual labs in 05/15. [email or web address] Not available 05/21/2024 16:19:00 06/21/2024 06/21/2024 The [...] per schedule. Cont f/u with Endo at [place] as per schedule. Cont f/u with Spine as per schedule. Cont f/u with Rheumat at [facility] as per schedule. Cont f/u with Surg as per schedule. Cont f/u with Cardio at [facility] as per schedule. Cont f/u with Nephro at [facility] as per schedule. Cont f/u with Hemat at [place] as per schedule. Cont f/u with Bartender Helper as per schedule. Cont f/u with Ophtho at as per schedule. Cont f/u with Derm at [facility] as per schedule. Cont f/u with Dr. Langley (Hand surgeon) at as per schedule. Educated pt about alarming symptoms to monitor at home and call us back or get checked in ED. Pt had acute renal failure and was admitted hospital due to s/e from Allopurinol as per his Paving Contractor. So pt can not take any Allopurinol in future. So pt needs to be on Febuxostat and Colchicine for his Gout control. Pt's insurance declined for MRI L-spine wo and FCE testing. Pt's insurance declined for Ubiquigent. HM: Colonoscopy - 03/08, 1 polyp +. Cont f/u with GI as per schedule (5 yrs). Flu - Pt gets at HD/pharmacy. Pneumo - 02/12/20. Tdap - 10/22/19. Shingrix - At pharmacy/HD. F/u in 3-4 months as before. Annual labs in 05/15. [email or web address] Not available 07/15/2024 12:11:51 Plan of Treatment Reminders Order Date Submit Date Provider Last Modified By Organization Details Last Modified Time Details Appointments Follow Up 30 2024 02:45P Lisa Castro MD Not available Not available Not available Hospital Follow Up 2024 01:00P Lisa Castro MD Not available Not available Not available Any 15 2024 11:15A Lisa davis MD Not available Not available Not available Lab uric acid, serum or plasma 2023 024 [facility] (Lab), [address] [place], [address], 05/07/2024 16:36:28 lipid panel, serum 2023 024 [facility] (Lab), [address] [place], [address], 05/07/2024 16:36:39 TSH, serum, reflex free T4 [address] (Lab), [address] [place], [address], 05/16/2024 08:14:16 PSA, serum or plasma [address] (Lab), [address] [place], [address], 05/16/2024 08:14:17 vitamin D, 25-hydrox y, total, serum [address] (Lab), [address] [place], [address], 05/16/2024 08:14:16 vitamin B12 + folate, serum or blood [address] (Lab), [address] [place], [address], 05/16/2024 08:14:17 magnesium , serum or plasma 2023 024 [facility] (Lab), [address] [place], [address], 05/07/2024 16:36:42 glycohemo globin, total, blood [address] (Lab), [address] [place], [address], 05/20/2024 15:55:42 CMP, serum or plasma 2023 024 [facility] (Lab), [address] [place], [address], 05/07/2024 16:36:34 microalbu min, urine 2023 024 [facility] (Lab), [address] [place], [address], 05/07/2024 14:51:53 CBC w/ auto diff 2023 024 [facility] (Lab), [address] [place], [address], 05/07/2024 14:52:26 Referral gastroent erologist referral - Please call patient to schedule an appointme nt. Thank you 2023 024 [email or web address] Domitila Haji MD, [address] [facility], [place] [address], [address], 06/04/2024 08:49:30 orthopedi c surgeon referral - Please call patient to schedule an appointme nt. Thank you. 2023 024 [facility], [address], [place], [address], 06/23/2024 10:12:26 physical therapist referral - Please contact patient to schedule 2023 024 [email or web address] [facility] [place] [facility], [address], [place], [address], 05/21/2024 15:57:09 general surgeon referral - Please call patient to schedule an appointme nt. Thank you. 2023 024 [email or web address] Everton Hooker MD, [address] [facility], [facility] [address], [address], 08/12/2024 08:54:30 Procedures injection /aspirati on joint/bur sa (PROC) 2023 024 [email or web address] In-Office Order, Internal Use Only DO Not Attach Compendium DO Not Attach Compendium, Do Not Delete/merge, [id number] 05/10/2024 11:45:25 injection /aspirati on joint/bur sa (PROC) 2023 024 [email or web address] In-Office Order, Internal Use Only DO Not Attach Compendium DO Not Attach Compendium, Do Not Delete/merge, [id number] 06/21/2024 11:43:13 Surgeries None recorded. Imaging XR, knee 2023 024 [email or web address] [facility] [place], [address], [place], [address], 05/10/2024 13:41:55 XR, hip + pelvis, unilatera l 2023 024 [email or web address] [facility] [place], [address], [place], [address], 06/21/2024 12:02:32 Medication Orders Linzess 72 mcg capsule 2023 024 [facility] #93724, [address], [place], [place], [id number], 05/07/2024 09:21:02 Vascepa 1 gram capsule 2023 024 [facility] #41291, [address], [place], [place], [id number], 05/07/2024 09:21:01 atorvasta tin 80 mg tablet 2023 024 [facility] #15236, [address], [place], [place], [id number], 05/07/2024 09:20:58 ezetimibe 10 mg tablet 2023 024 [facility] #37992, [address], [place], [place], [id number], 05/07/2024 09:21:01 gemfibroz il 600 mg tablet 2023 024 [facility] #98814, [address], [place], [place], [id number], 05/07/2024 09:21:02 bupivacai ne HCl 0.5 % (5 mg/mL) injection solution 2023 024 [email or web address] [facility] #51431, [address], [place], [place], [id number], 05/10/2024 12:52:07 Kenalog 10 mg/mL suspensio n for injection 2023 024 [id number] [facility] #20589, [address], [place], [place], [id number], 07/12/2024 21:17:10 prednison e 10 mg tablets in a dose pack 2023 [email or web address] [facility] #45930, [address], [place], [place], [id number], 07/15/2024 11:30:05 Linzess 72 mcg capsule 2023 [facility] #17881, [address], [place], [place], [id number], 05/21/2024 16:08:05 Uloric 40 mg tablet 2023 [facility] #52516, [address], [place], [place], [id number], 05/21/2024 16:19:35 Vascepa 1 gram capsule 2023 [facility] #42594, [address], [place], [place], [id number], 05/21/2024 16:08:06 atorvasta tin 80 mg tablet 2023 024 [facility] #37941, [address], [place], [place], [id number], 05/21/2024 16:08:06 ezetimibe 10 mg tablet 2023 024 [facility] #47722, [address], [place], [place], [id number], 05/21/2024 16:08:09 gemfibroz il 600 mg tablet 2023 024 [facility] #13513, [address], [place], [place], [id number], 05/21/2024 16:08:08 ergocalci ferol (vitamin D2) 1,250 mcg (50,000 unit) capsule 2023 [email or web address] [facility]46293, [address], [place], [place], [id number], 05/21/2024 16:08:05 bupivacai ne HCl 0.5 % (5 mg/mL) injection solution 2023 [email or web address] [facility] #32398, [address], [place], [place], [id number], 06/21/2024 11:52:35 Kenalog 10 mg/mL suspensio n for injection 2023 [id number] 15 [facility]65759, [address], [place], [place], [id number], 07/12/2024 21:17:10 tamsulosi n 0.4 mg capsule 2023 [email or web address] [facility]62855, [address], [place], [place], [id number], 07/15/2024 12:10:41 ketorolac 10 mg tablet 2023 [email or web address] [facility]98139, [address], [place], [place], [id number], 07/15/2024 12:10:41 oxycodone 5 mg tablet 2023 [email or web address] [facility]46606, [address], [place], [place], [id number], 07/15/2024 12:10:41 ondansetr on HCl 4 mg tablet 2023 [email or web address] [facility]09479, [address], [place], [place], [id number], 07/15/2024 12:10:41 Patient TargetsNo targets recorded. Patient Instructions Encounter Date Encounter Id Patient Instructions Last Modified By Organization Details Last Modified Time 05/21/2024 [id number] starting a weigh t loss plan: care instructions [email or web address] Not available 05/21/2024 16:20:00 07/15/2024 [id number] starting a weigh t loss plan: care instructions [email or web address] Not available 07/15/2024 12:10:41 Reason for Referral Orthopedic Surgeon Referral for Pain of right knee joint Please call patient to schedule an appointment. Thank you. Referring Physician: Aditya Castro [facility], Encounter Date: 05/07/2024 Jr. Java Developer Referral for Screening colonoscopy Please call patient to schedule an appointment. Thank you Referring Physician: Aditya Castro [facility], Encounter Date: 05/07/2024 Physical Therapist Referral for Bilateral osteoarthritis of knees Please contact patient to schedule Referring Physician: Gucci Brown, Orthopedic Surgery, Encounter Date: 05/10/2024 General Surgeon Referral for Gallstone RUQ pain, gallstones ++ Please call patient to schedule an appointment. Thank you. Referring Physician: Aditya Castro [facility], Encounter Date: 07/15/2024 Results Created Date Observation Date Name Description Value Unit Range Abnormal Flag Note LastModifiedBy Organization Detail LastModifiedTime 05/07/20 24 05/07/2024 MICRO ALBUM IN RANDO M URINE microalbumin , urine 785.1 mg/L 0.0-16 .6 high Not Available [facility] (Lab) [address] [place], [address], 05/07/2024 14:51:53 05/07/20 24 05/07/2024 CBC/C OMPLE TE BLD COUNT W/DIF F white blood cells 5.1 x10'3 /uL 4.2-10 .8 Not Available [facility] (Lab) [address] [place], [address], 05/07/2024 14:52:26 05/07/20 24 05/07/2024 CBC/C OMPLE TE BLD COUNT W/DIF F red blood cells 3.54 x10'6 /uL 4.10-5 .80 low Not Available [facility] (Lab) [address] [place], [address], 05/07/2024 14:52:26 05/07/20 24 05/07/2024 CBC/C OMPLE TE BLD COUNT W/DIF F hemoglobin 10.7 g/dL 13.2-1 7.0 low Not Available [facility] (Lab) [address] [place], [address], 05/07/2024 14:52:26 05/07/20 24 05/07/2024 CBC/C OMPLE TE BLD COUNT W/DIF F hematocrit 31.9 % 39.3-5 0.0 low Not Available [facility] (Lab) [address] [place], [address], 05/07/2024 14:52:26 05/07/20 24 05/07/2024 CBC/C OMPLE TE BLD COUNT W/DIF F mean red cell volume 90.1 fL 80.0-9 7.0 Not Available [facility] (Lab) [address] [place], [address], 05/07/2024 14:52:26 05/07/20 24 05/07/2024 CBC/C OMPLE TE BLD COUNT W/DIF F mean red cell hemoglobin 30.2 pg 27.0-3 3.0 Not Available [facility] (Lab) [address] [place], [address], 05/07/2024 14:52:26 05/07/20 24 05/07/2024 CBC/C OMPLE TE BLD COUNT W/DIF F mean RBC HGB concentratio n 33.5 g/dL 31.0-3 6.0 Not Available [facility] (Lab) [address] [place], [address], 05/07/2024 14:52:26 05/07/20 24 05/07/2024 CBC/C OMPLE TE BLD COUNT W/DIF F red cell distribution width 14.6 % 11.8-1 5.5 Not Available [facility] (Lab) [address] [place], [address], 05/07/2024 14:52:26 05/07/20 24 05/07/2024 CBC/C OMPLE TE BLD COUNT W/DIF F platelets 216 x10'3 /uL 150-40 0 Not Available [facility] (Lab) [address] [place], [address], 05/07/2024 14:52:26 05/07/20 24 05/07/2024 CBC/C OMPLE TE BLD COUNT W/DIF F mean platelet volume 11.2 fL 9.0-12 .4 Not Available [facility] (Lab) [address] [place], [address], 05/07/2024 14:52:26 05/07/20 24 05/07/2024 CBC/C OMPLE TE BLD COUNT W/DIF F neutrophils 44.1 % 39.0-7 2.0 Not Available [facility] (Lab) [address] [place], [address], 05/07/2024 14:52:26 05/07/20 24 05/07/2024 CBC/C OMPLE TE BLD COUNT W/DIF F lymphocytes 33.3 % 16.0-4 7.0 Not Available [facility] (Lab) [address] [place], [address], 05/07/2024 14:52:26 05/07/20 24 05/07/2024 CBC/C OMPLE TE BLD COUNT W/DIF F monocytes 14.3 % 5.0-12 .0 high Not Available [facility] (Lab) [address] [place], [address], 05/07/2024 14:52:26 05/07/20 24 05/07/2024 CBC/C OMPLE TE BLD COUNT W/DIF F eosinophils 7.5 % 1.0-7. 0 high Not Available [facility] (Lab) [address] [place], [address], 05/07/2024 14:52:26 05/07/20 24 05/07/2024 CBC/C OMPLE TE BLD COUNT W/DIF F basophils 0.6 % 0.0-2. 0 Not Available [facility] (Lab) [address] [place], [address], 05/07/2024 14:52:26 05/07/20 24 05/07/2024 CBC/C OMPLE TE BLD COUNT W/DIF F immature granulocytes 0.2 % 0.00-0 .50 Not Available [facility] (Lab) [address] [place], [address], 05/07/2024 14:52:26 05/07/20 24 05/07/2024 CBC/C OMPLE TE BLD COUNT W/DIF F neutrophils, absolute count 2.23 x10'3 /uL 1.5-8. 0 Not Available [facility] (Lab) [address] [place], [address], 05/07/2024 14:52:26 05/07/20 24 05/07/2024 CBC/C OMPLE TE BLD COUNT W/DIF F lymphocytes, absolute count 1.68 x10'3 /uL 1.07-3 .43 Not Available [facility] (Lab) [address] [place], [address], 05/07/2024 14:52:26 05/07/20 24 05/07/2024 CBC/C OMPLE TE BLD COUNT W/DIF F monocytes, absolute count 0.72 x10'3 /uL 0.29-0 .99 Not Available [facility] (Lab) [address] [place], [address], 05/07/2024 14:52:26 05/07/20 24 05/07/2024 CBC/C OMPLE TE BLD COUNT W/DIF F eosinophils, absolute count 0.38 x10'3 /uL 0.02-0 .53 Not Available [facility] (Lab) [address] [place], [address], 05/07/2024 14:52:26 05/07/20 24 05/07/2024 CBC/C OMPLE TE BLD COUNT W/DIF F basophils, absolute count 0.03 x10'3 /uL 0.01-0 .08 Not Available [facility] (Lab) [address] [place], [address], 05/07/2024 14:52:26 05/07/20 24 05/07/2024 CBC/C OMPLE TE BLD COUNT W/DIF F immature granulocytes ,absolute 0.01 x10'3 /uL 0.00-0 .05 Not Available [facility] (Lab) [address] [place], [address], 05/07/2024 14:52:26 05/07/20 24 05/07/2024 CBC/C OMPLE TE BLD COUNT W/DIF F nucleated red blood cells 0.0 % -0 Not Available [facility] (Lab) [address] [place], [address], 05/07/2024 14:52:26 05/07/20 24 05/07/2024 CBC/C OMPLE TE BLD COUNT W/DIF F NRBC# 0.00 x10'3 /uL Not Available [facility] (Lab) [address] [place], [address], 05/07/2024 14:52:26 05/07/20 24 05/07/2024 VITAM IN D 25-HY DROXY [id number] 25.2 NG/mL 30-100 low Vitam in D Statu s: Defic ient: <20 ng/mL Insuf ficie nt: 20-29 ng/mL Suffi cient : 30-10 0 ng/mL Not Available [facility] (Lab) [address] [place], [address], 05/07/2024 16:09:08 05/07/20 24 05/07/2024 TSH W/REF JOSE FT4 TSH with reflex free T4 1.430 uIU/m L 0.465- 4.680 Not Available [facility] (Lab) [address] [place], [address], 05/07/2024 16:20:16 05/07/20 24 05/07/2024 PSA SCREE N PSA medicare screen 0.71 NG/mL 0.00-4 .00 Not Available [facility] (Lab) [address] [place], [address], 05/07/2024 16:20:17 05/07/20 24 05/07/2024 URIC ACID SERUM uric acid 6.7 mg/dL 3.5-8. 5 Not Available [facility] (Lab) [address] [place], [address], 05/07/2024 16:36:28 05/07/20 24 05/07/2024 COMPR EHENS CARA METAB OLIC PANEL sodium 134 mmol/ L 137-14 5 low Not Available [facility] (Lab) [address] [place], [address], 05/07/2024 16:36:34 05/07/20 24 05/07/2024 COMPR EHENS CARA METAB OLIC PANEL potassium 3.7 mmol/ L 3.5-5. 1 Not Available [facility] (Lab) [address] [place], [address], 05/07/2024 16:36:34 05/07/20 24 05/07/2024 COMPR EHENS CARA METAB OLIC PANEL chloride 96 mmol/ L 98-107 low Not Available [facility] (Lab) [address] [place], [address], 05/07/2024 16:36:34 05/07/20 24 05/07/2024 COMPR EHENS CARA METAB OLIC PANEL carbon dioxide 29 mmol/ L 22-30 Not Available [facility] (Lab) [address] [place], [address], 05/07/2024 16:36:34 05/07/20 24 05/07/2024 COMPR EHENS CARA METAB OLIC PANEL anion gap 12.7 mmol/ L 14-22 low Not Available [facility] (Lab) [address] [place], [address], 05/07/2024 16:36:34 05/07/20 24 05/07/2024 COMPR EHENS CARA METAB OLIC PANEL glucose 316 mg/dL 70-99 high Not Available [facility] (Lab) [address] [place], [address], 05/07/2024 16:36:34 05/07/20 24 05/07/2024 COMPR EHENS CARA METAB OLIC PANEL BUN 63 mg/dL 8-19 high Not Available [facility] (Lab) [address] [place], [address], 05/07/2024 16:36:34 05/07/20 24 05/07/2024 COMPR EHENS CARA METAB OLIC PANEL creatinine 6.80 mg/dL 0.66-1 .25 high Not Available [facility] (Lab) [address] [place], [address], 05/07/2024 16:36:34 05/07/20 24 05/07/2024 COMPR EHENS CARA METAB OLIC PANEL GFR 8 Refer ence Range : [place] ge GFR Healt hy Adult : >60 [...] calcu lator is avail able on the [facility] websi te: [email or web address] :[email or web address] w.[email or web address] [email or web address] rg/pr ofess ional s/kdo qi/gf r_cal culat or Not Available [facility] (Lab) [address] [place], [address], 05/07/2024 16:36:34 05/07/20 24 05/07/2024 COMPR EHENS CARA METAB OLIC PANEL alkaline phosphatase 96 U/L 38-126 Not Available [facility] (Lab) [address] [place], [address], 05/07/2024 16:36:34 05/07/20 24 05/07/2024 COMPR EHENS CARA METAB OLIC PANEL alanine aminotransfe rase 27 U/L 0-50 Not Available [facility] (Lab) [address] [place], [address], 05/07/2024 16:36:34 05/07/20 24 05/07/2024 COMPR EHENS CARA METAB OLIC PANEL aspartate aminotransfe rase 38 U/L 15-46 Not Available [facility] (Lab) [address] [place], [address], 05/07/2024 16:36:34 05/07/20 24 05/07/2024 COMPR EHENS CARA METAB OLIC PANEL bilirubin, total 0.60 mg/dL 0.20-1 .30 Not Available [facility] (Lab) [address] [place], [address], 05/07/2024 16:36:34 05/07/20 24 05/07/2024 COMPR EHENS CARA METAB OLIC PANEL calcium 9.4 mg/dL 8.4-10 .2 Not Available [facility] (Lab) [address] [place], [address], 05/07/2024 16:36:34 05/07/20 24 05/07/2024 COMPR EHENS CARA METAB OLIC PANEL total protein 7.1 g/dL 6.3-8. 2 Not Available [facility] (Lab) [address] [place], [address], 05/07/2024 16:36:34 05/07/20 24 05/07/2024 COMPR EHENS CARA METAB OLIC PANEL albumin 4.0 g/dL 3.4-5. 0 Not Available [facility] (Lab) [address] [place], [address], 05/07/2024 16:36:34 05/07/20 24 05/07/2024 COMPR EHENS CARA METAB OLIC PANEL globulin 3.1 g/dL 2.6-4. 2 Not Available [facility] (Lab) [address] [place], [address], 05/07/2024 16:36:34 05/07/20 24 05/07/2024 COMPR EHENS CARA METAB OLIC PANEL A/G ratio 1.3 ratio 1.0-2. 0 Not Available [facility] (Lab) [address] [place], [address], 05/07/2024 16:36:34 05/07/20 24 05/07/2024 LIPID PANEL cholesterol 144 mg/dL 140-19 9 NIH MARIELLE NSUS RECOM MENDA TION FOR DALIA STERO L: ADULT CHILD LOW RISK: <200 <170 BORDE RLINE : <200- 239 ----- HIGH RISK: >240 >200 Not Available [facility] (Lab) [address] [place], [address], 05/07/2024 16:36:39 05/07/20 24 05/07/2024 LIPID PANEL triglyceride s 146 mg/dL 0-150 NIH MARIELLE NSUS REPOR T RECOM MENDA TION FOR TRIGL YCERI MARIELLA: ADULT CHILD LOW RISK: <150 ----- BODER LINE: 150-1 99 ----- HIGH RISK: >200 ----- Not Available [facility] (Lab) [address] [place], [address], 05/07/2024 16:36:39 05/07/20 24 05/07/2024 LIPID PANEL HDL cholesterol 29 mg/dL 40- low Not Available [facility] (Lab) [address] [place], [address], 05/07/2024 16:36:39 05/07/20 24 05/07/2024 LIPID PANEL [...] WILL NOT BE REPOR LAKEISHA. Not Available [facility] (Lab) [address] [place], [address], 05/07/2024 16:36:39 05/07/20 24 05/07/2024 MAGNE SIUM magnesium 2.3 mg/dL 1.6-2. 3 Not Available [facility] (Lab) [address] [place], [address], 05/07/2024 16:36:42 05/07/20 24 05/07/2024 VITAM IN B12 (SOFIA AUSTIN ) vb12 626 pg/mL 239-93 1 Not Available [facility] (Lab) [address] [place], [address], 05/07/2024 16:57:46 05/07/20 24 05/07/2024 FOLAT E, SERUM /PLAS MA folate 12.7 NG/mL 2.76-2 0.0 Not Available [facility] (Lab) [address] [place], [address], 05/07/2024 16:57:48 05/07/20 24 05/10/2024 HA1C, SEND- OUT TO [facility] RP hemoglobin A1C 9.9 % 4.8-5. 6 high . . Predi abete s: 5.7 - 6.4 Diabe canelo: >6.4 Glyce karthikeyan contr ol for adult s with diabe canelo: <7.0 Perfo rmed at: - [facility] [place] [id number] Lab Direc tor: Kevin portillo PhD, Phone : [phone] Not Available [facility] (Lab) [address] [place], [address], 05/10/2024 07:14:44 05/02/20 scapu la, right [facility] [address] [place] [address] Patien t Name: JUVENAL GARCIA Access ion #: [id number] Sex: M : 1969 3 Dictat [...] at 2023 12:08: 46 PM Page 1 [facility] (Imaging) [address] [place] [address], [address], 05/07/2024 09:12:00 05/02/20 24 XR, thora cic spine , 3 view [facility] [address] [place] [address] Patien t Name: JUVENAL GARCIA Access ion #: [id number] Sex: M : 1969 3 Dictat ed By: Vahe Arana Attend ing Physic britton: EVONNE CASTRO Physic britton: EVONNE CASTRO Exam Date: 2023 11:57 AM Exam Name: XR T SPINE 3V Admitt ing Diagno sis(es ): ACCESS ION #: [id number] INDICA TION: pain COMPAR TYLER: None [...] at 2023 12:35: 42 PM Page [address] ([facility]) [address] [place], [address], 05/07/2024 09:12:00 05/10/20 24 XR, knee No observ ation record ed. [email or web address] [facility] [place] [address] [facility] [address], [place], [address], 05/10/2024 13:41:54 06/21/20 24 XR, hip + pelvi s, unila teral No observ ation record ed. [email or web address] [facility] [place] [address] [facility] [address], [place], [address], 06/21/2024 12:02:31 07/12/20 24 07/12/2024 CT, abdom en + pelvi s, w/o contr ast No observ ation record ed. [address], [place], [address], 07/15/2024 11:27:52 07/16/20 24 07/16/2024 CT, abdom en + pelvi s, w/o contr ast No observ ation record ed. [address], [place], [address], 07/17/2024 09:02:10 08/11/20 24 08/11/2024 CT, abdom en + pelvi s, w/o contr ast No observ ation record ed. [address], [place], [address], 08/12/2024 09:33:09 Result Notes None recorded. 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 636791460 Active 2017 Not Available [facility] 3 01:10:47 Chronic back pain 915567733 Active 2022 Not Available [facility] 3 01:10:47 Hyperchol esterolem ia 52987606 Active 2017 Not Available [facility] 3 01:10:47 Seborrhei c dermatiti s of scalp 189595967 Active 2022 Not Available [facility] 3 01:10:47 Chronic physical disabilit y 289150399 Active 2018 Not Available [facility] 3 01:10:47 History of deep vein thrombosi s 314901086 Active 2017 Not Available [facility] 3 01:10:47 Heartburn 77773967 Active 2017 Not Available [facility] 3 01:10:47 Ultrasoun d scan abnormal 305706697 Active 2020 Not Available [facility] 3 01:10:47 Hypertrop hy of nasal turbinate s 94440350 Active 2021 Not Available [facility] 3 01:10:47 Sensorine ural hearing loss of bilateral ears 505310958 Active 2021 Not Available [facility] 3 01:10:47 Periphera l venous insuffici ency 37715993 Active 2020 Not Available [facility] 3 01:10:47 Myocardia l infarctio n 26092531 Completed 201705/08/2018 Not Available [facility] 3 01:10:48 Stable angina 462886541 Active 2017 Not Available [facility] 3 01:10:48 End stage renal failure on dialysis 387648819 Active 2019 Not Available [facility] 3 01:10:48 Degenerat ion of lumbar intervert ebral disc 40916893 Active 2018 Not Available [facility] 3 01:10:48 Gastroeso phageal reflux disease without esophagit is 054195362 Active 2017 Not Available [facility] 3 01:10:48 Anemia 332557100 Active 2017 Not Available [facility] 3 01:10:48 Chronic low back pain 265483009 Active 2018 Not Available [facility] 3 01:10:48 Pain in toe 972339703 Active 2018 Not Available [facility] 3 01:10:48 Pain in toe 504791048 Active 2018 Not Available [facility] 3 01:10:48 Right upper quadrant pain 264850423 Active 2020 Not Available [facility] 3 01:10:48 Type 2 diabetes mellitus without complicat ion 155872843 Completed 201701/10/2019 Not Available [facility] 3 01:10:48 Pain in left foot 78486929791 9107 Active 2019 Not Available [facility] 3 01:10:48 Vitamin D deficienc y 65646525 Active 2017 Not Available [facility] 3 01:10:49 Seasonal allergic rhinitis 183995122 Active 2017 Not Available [facility] 3 01:10:49 Sinusitis 13281486 Active 2021 Not Available [facility] 3 01:10:49 Hypertens cara disorder 82550682 Active 2017 Not Available [facility] 3 01:10:49 Osteoarth ritis 709077142 Active 2019 Not Available [facility] 3 01:10:49 Umbilical hernia 583364987 Active 2018 Not Available [facility] 3 01:10:49 Vertigo 792245964 Active 2021 Not Available [facility] 3 01:10:49 Abrasion and/or friction burn of skin 792496185 Active 2018 Not Available [facility] 3 01:10:49 Chronic sinusitis 62178829 Active 2021 Not Available [facility] 3 01:10:49 Multiple benign melanocyt ic nevi 434425478 Active 2017 Not Available [facility] 3 01:10:50 Deep venous thrombosi s of lower extremity 820171082 Active 2022 Not Available [facility] 3 01:10:50 Dizziness 696403191 Active 2017 Not Available [facility] 3 01:10:50 Dysphagia 73538246 Active 2021 Not Available [facility] 3 01:10:50 Obesity 268287535 Active 2017 Not Available [facility] 3 01:10:50 Ketoacido sis due to type 1 diabetes mellitus 680595162 Active 2019 Not Available [facility] 3 01:10:50 Nausea 533752540 Active 2021 Not Available [facility] 3 01:10:50 Congestiv e heart failure 22384885 Active 2017 Not Available [facility] 3 01:10:50 Diabetic periphera l neuropath y 061904483 Active 2017 Not Available [facility] 3 01:10:51 Asymmetri nikos hearing loss 114826322 Active 2021 Not Available [facility] 3 01:10:51 Chronic kidney disease stage 4 573730945 Completed 201707/29/2020 Not Available [facility] 3 01:10:51 Chronic kidney disease stage 5 707257779 Active 2019 Not Available [facility] 3 01:10:51 Uncontrol led type 2 diabetes mellitus 223088059 Completed 201705/16/2019 Aditya Castro MD [address] [place] [address], [place], [address] , [facility] 4 09:03:03 Gastritis 3388984 Active 2021 Not Available [facility] 3 01:10:51 End-stage renal disease 09645171 Active 2019 Not Available [facility] 3 01:10:51 Type 1 diabetes mellitus 13007512 Active 2018 Not Available [facility] 3 01:10:52 Atrial fibrillat ion 38463051 Active 2017 Not Available [facility] 3 01:10:52 Hyperlipi demia 26458561 Active 2017 Not Available [facility] 3 01:10:52 Heart disease 93339085 Active 2017 Not Available [facility] 3 01:10:52 Hyperpara thyroidis m 36520037 Active 2018 Not Available [facility] 3 01:10:52 Nasal congestio n 29081874 Active 2021 Not Available [facility] 3 01:10:52 Diabetes mellitus 75530979 Active 2017 Not Available [facility] 3 01:10:52 Obstructi ve sleep apnea syndrome 14871329 Active 2018 Not Available [facility] 3 01:10:53 Epigastri c pain 02864775 Active 2021 Not Available [facility] 3 01:10:53 Chronic idiopathi c constipat ion 03584118 Active 2020 Not Available [facility] 3 01:10:53 Corneal abrasion 61454110 Active 2018 Not Available [facility] 3 01:10:53 Dystrophi a unguium 61448317 Active 2018 Not Available [facility] 3 01:10:53 Gout 33793277 Active 2017 Not Available [facility] 3 01:10:53 Chronic renal failure 03036284 Completed 201705/08/2018 Not Available [facility] 3 01:10:54 Skin lesion 88842310 Active 2017 Not Available [facility] 3 01:10:54 Hypertrig lyceridem ia 699325322 Active 2022 Aditya Castro MD [address], [place], [address] , [employer] [facility] [employer] 3 16:04:08 Chronic constipat ion 835517965 Active 2022 Aditya Castro MD [address], [place], [address] , [employer] [facility] 3 16:45:46 Cough 42169259 Active 2022 Aditya Castro MD [address], [place], [address] , [employer] [facility] [employer] [facility] [employer] [facility] [employer] 3 12:45:44 Bronchiti s 43577176 Active 2022 Aditya Castro MD [address], [place], [address] , [employer] S [employer] [facility] 3 09:22:50 Allergic rhinitis 84835191 Active 2022 Aditya Castro MD [address], [place], [address] , [employer] [facility] [employer] [facility] 3 09:28:39 Allergic contact dermatiti s 309464245 Active 2022 Aditya Castro MD [address], [place], [address] , [employer] [facility] [place] [employer] [facility] 3 16:06:02 Tinea cruris 159468752 Active 2022 Aditya Castro MD [address], [place], [address] , [place] [facility] [place] [facility] 3 16:06:15 Acute bacterial sinusitis 54536564 Active 2023 KATIE Chen [address], [place], [address] , [place] [facility] [place] [facility] 4 09:55:25 Ulcer of mouth 79433555 Active 2023 Aditya Castro MD [address], [place], [address] , [place] [facility] [place] [facility] 4 09:03:52 Onychomyc osis of toenails 628922484 Active 2023 Chris Linda DPM [address], [place], [address] , [place] [facility] [place] [facility] 4 12:24:55 Folliculi tis 74793292 Active 2023 Aditya Castro MD [address], [place], [address] , [place] [facility] [place] [facility] 4 10:26:36 Pain of right knee joint 41825422532 4100 Active 2023 Aditya Castro MD [address] [place] [address], [place], [address] , [place] [facility] [place] [facility] 4 10:31:07 Bleeding of ear canal 073662548 Active 2023 Aditya Castro MD [address], [place], [address] , [place] [facility] [place] [facility] 4 10:40:38 Acute left otitis media 122886579 Active 2023 Rohit Jessica MD [address], [place], [address] , [place] [facility] [place] [facility] 4 16:04:39 Thoracic back pain 804619909 Active 2023 Aditya Castro MD [address], [place], [address] , [facility] [place] [employer] [facility] 4 16:28:59 Pain of right shoulder blade 126766052 Active 2023 Aditya Castro MD [address], [place], [address] , [facility] [employer] [facility] 4 16:30:04 Degenerat ion of thoracolu mbar intervert ebral disc 91679457 Active 2023 Aditya Castro MD [address], [place], [address] , [facility] [employer] [facility] [employer] [facility] 4 16:30:54 Hypothyro idism 02593111 Active 2023 Aditya Castro MD [address], [place], [address] , [facility] [employer] [facility] 4 16:34:29 Uncontrol led type 2 diabetes mellitus 587303161 Active 2023 Aditya Castro MD [address], [place], [address] , [facility] [employer] [facility] 4 09:03:03 Bilateral osteoarth ritis of knees 95435352599 9107 Active 2023 Sofia Keyonnatila agosto, [facility] [employer] [facility] 4 11:42:16 Pain of left knee joint 01787680235 4107 Active 2023 LESLY Gambino [address], [place], [address] , [facility] [employer] [facility] 4 13:42:14 Pain in right hip joint 39458937216 9102 Active 2023 KELLE John, [facility] [employer] [facility] 4 11:11:43 Trochante margarita bursitis of right hip 39222907603 9100 Active 2023 LESLY Gambino [address], [place], [address] , [facility] [employer] [facility] 4 12:00:40 Gallstone 621106015 Active 2023 Aditya Castor MD [address], [place], [address] , [employer] 4 11:21:33 Right flank pain 525588412 Active 2023 Aditya Castro MD [address], [place], [address] , [employer] 4 11:29:38 Kidney stone 61040036 Active 2023 Aditya Castro MD [address], [place], [address] , [employer] 4 11:31:01 Notes:blood clots, coronary artery disease, head trauma or injury, kidney disease, seizures, use of blood thinners, balance problems, numbness or tingling, loss of memory, swelling in legs, shortness of breath, muscle pain, back/neck pain, swollen or painful joints, excessive thirst, dry mouth, sleep apnea, wears glasses Some problems listed in Document: #[id number] could not be added to this patient's chart. Please review this document and add these problems to the patient's chart manually as needed. Problem Notes None recorded. Procedures Surgical History Date Name Laterality Status Provider Name and Address Organization Details Recorded Time 05/02/20 24 Nail Debridement completed Chris Linda DPM [address], [place], [address], [employer] 05/20/2024 09:31:13 03/11/20 24 Nail Debridement completed Chris Linda DPM [address], [place], [address], [employer] 03/11/2024 12:35:50 03/11/20 24 Wound Care-Podiatry completed Chris Linda DPM [address], [place], [address], [employer] 03/11/2024 12:34:57 01/08/20 24 Wound Care-Podiatry completed Chris Linda DPM [address], [place], [address], [place] [employer] [facility] [employer] [employer] 01/08/2024 12:26:31 12/25/19 24 Medicare Wellness CPT Code, subsequent completed [address] [employer] 12/25/2023 15:24:37 11/06/19 24 Medicare Wellness CPT Code, subsequent cancelled Beth Willis RN [place] [employer] 11/03/2023 10:10:00 01/08/20 22 SEPTOPLASTY (SURG) completed Not Available [facility] 10/19/2022 01:16:48 01/22/20 21 Cardiac Cath completed Not Available [facility] 023 01:06:21 reduction of nasal turbinate completed Not Available [facility] 10/19/2022 01:06:21 procedure on heart completed Lisa Lopez CNA [place] [employer] 05/10/2024 11:11:45 Imaging Results Imaging Date Name Status LastModified by Organiz [facility] Details LastModified Time 05/02/2024 scapula, right completed [facility] (Imaging) [address] [place], [address], 05/07/2024 09:12:00 05/02/2024 XR, thoracic spine, 3 view completed [email or web address] [facility] (Imaging) [address] [place], [address], 05/07/2024 09:12:00 05/10/2024 XR, knee completed [email or web address] [facility] [place] [address], [place], [address], 05/10/2024 13:41:54 06/21/2024 XR, hip + pelvis, unilateral completed [email or web address] [facility] [place] [address], [place], [address], 06/21/2024 12:02:31 07/12/2024 CT, abdomen + pelvis, w/o contrast completed [address], [address], 07/15/2024 11:27:52 07/16/2024 CT, abdomen + pelvis, w/o contrast completed [address], [place], [address], 07/17/2024 09:02:10 08/11/2024 CT, abdomen + pelvis, w/o contrast completed [address], [place], [address], 08/12/2024 09:33:09 Procedure Notes None recorded. Medical Equipment None Reported. Allergies Allergen ID Allergen Name Allergen Category Reaction Reaction Severity Criticality Documentation Date Start Date Code Code System Note Provider Name and Address Organization Details Recorded Time 1834 Iodinated contrast media (substanc e) medicatio n rash severe Not available 10/19/2022 13000 2004 SNOMED Not Available [facility] 3 01:16:23 1835 Brilinta medicatio n rash severe Not available 10/19/2022 89195 36 RxNorm Not Available [facility] 3 01:16:23 1836 allopurin ol medicatio n other severe Not available 10/19/2022 519 RxNorm Not Available [facility] 3 01:16:23 Medications Name Sig Start Date [...] mg by injectio n route. 2023 active [facility]: 0003-04 94-20 Not Available Not Available [...] (Gen 5) subcutaneo us cartridge with controller 09/20 /2024 completed Not Available Not Available Not Available Vitals Date Recorded Body height Body mass index (BMI) Body weight Body temperature Heart rate Oxygen saturation Oxygen saturation in Arterial blood by Pulse oximetry Provider Name and Address Organization Details Last Updated DateTime 171.45 cm 40.3 kg/m2 524917. 36 g 97.2 [degF] 71 /min 99 % 99 % Lucinda Fletcher RN [facility] [email or web address] [facility] 09:09:21 Date Recorded Respiratory rate Systolic blood pressure Diastolic blood pressure Provider Name and Address Organization Details Last Updated DateTime 05/07/2024 22 /min 140 mm[Hg] 80 mm[Hg] Aditya Castro MD [address], [place], [address], [facility] [employer] 05/07/2024 09:28:57 Date Recorded Body height Body mass index (BMI) Body weight Provider Name and Address Organization Details Last Updated DateTime 05/10/2024 177.8 cm 37.4 kg/m2 788364.61 g Lisa John, [facility] [employer] 05/10/2024 11:09:01 Date Recorded Body height Body mass index (BMI) Body weight Body temperature Heart rate Oxygen saturation Oxygen saturation in Arterial blood by Pulse oximetry Systolic blood pressure Diastolic blood pressure Provider Name and Address Organization Details Last Updated DateTime 177.8 cm 38 kg/m2 865565. 98 g 98.4 [degF] 70 /min 99 % 99 % 148 mm[Hg] 80 mm[Hg] Montana Gil [facility] [employer] 15:51:21 Date Recorded Respiratory rate Provider Name a nd Address Organization Details Last Updated DateTime 05/21/2024 20 /min Lisa Gonzáles [address], [place], [address], [place] [employer] [facility] [employer] 05/21/2024 16:17:14 Date Recorded Body height Body mass index (BMI) Body weight Provider Name and Address Organization Details Last Updated DateTime 06/21/2024 177.8 cm 37.9 kg/m2 376955.39 g Lisa John, [employer] [employer] 06/21/2024 11:11:01 Date Recorded Body height Body mass index (BMI) Body weight Body temperature Heart rate Oxygen saturation Oxygen saturation in Arterial blood by Pulse oximetry Systolic blood pressure Diastolic blood pressure Provider Name and Address Organization Details Last Updated DateTime 4 177.8 cm 38 kg/m2 066362. 19 g 97.3 [degF] 72 /min 97 % 97 % 150 mm[Hg] 78 mm[Hg] Lucinda Fletcher RN [place] [employer] [facility] [employer] 4 11:26:31 Date Recorded Respiratory rate Provider Name a nd Address Organization Details Last Updated DateTime 07/15/2024 22 /min Lisa Gonzáles [address] [place] [address], [address], [employer] 07/15/2024 12:05:38 Social History Question Answer Notes LastModified by Organization Details LastModified Time Tobacco Smoking Status Never Smoker Not Available [facility] 10/19/2022 01:04:37 Do You Have An Advance Directive? No MIGRATION.0301 [id number] Information not available 10/19/2022 What Is Your Level Of Alcohol Consumption? None MIGRATION.0301 [id number] Information not available 10/19/2022 Are You Blind Or Do You Have Difficulty Seeing? No MIGRATION.0301 [id number] Information not available 10/19/2022 Is Blood Transfusion Acceptable In An Emergency? Yes Information not available 12/07/2023 What Is Your Level Of Caffeine Consumption? Occasional MIGRATION.0301 [id number] Information not available 10/19/2022 How Much Tobacco Do You Chew? None MIGRATION.0301 [id number] Information not available 10/19/2022 What Is Your Code Status? Full Code Information not available 12/07/2023 In The 14 Days Before Symptom Onset, Have You Had Close Contact With A Laboratory-confi rmed COVID-19 While That Case Was Ill? No MIGRATION.0301 [id number] Information not available 10/19/2022 In The 14 Days Before Symptom Onset, Have You Had Close Contact With A Person Who Is Under Investigation For COVID-19 While That Person Was Ill? No MIGRATION.0301 [id number] Information not available 10/19/2022 Are You Deaf Or Do You Have Serious Difficulty Hearing? No MIGRATION.0301 [id number] Information not available 10/19/2022 What Type Of Diet Are You Following? CARDIAC And Renal MIGRATION.0301 [id number] Information not available 10/19/2022 Which Illicit Or Recreational Drugs Have You Used? NONE MIGRATION.0301 [id number] Information not available 10/19/2022 Do You Or Have You Ever Used E-cigarettes Or Vape? Never Used Electronic Cigarettes MIGRATION.0301 [id number] Information not available 10/19/2022 What Is The Highest Grade Or Level Of School You Have Completed Or The Highest Degree You Have Received? [id number] 2 Years MIGRATION.0301 [id number] Information not available 10/19/2022 What Is Your Occupation? DISABLED MIGRATION.030 [id number] Information not available 10/19/2022 Have There Been Any Changes To Your Family Or Social Situation? No Information not available 12/07/2023 Are There Any Guns Present In Your Home? No MIGRATION.0301 [id number] Information not available 10/19/2022 Do You Use Insect Repellent Routinely? No Information not available 12/07/2023 Where Do You Live? SingleLevelHouse Information not available 12/07/2023 Advance Directive- Providers Has Reviewed Directive And Consents To Follow Them (insert Provider Name With Any Objectives In Notes Field) No MIGRATION.0301 [id number] Information not available 10/19/2022 Presence Of Domestic [...] Do You Have A Medical Power Of Director Of Testing? No Information not available 12/07/2023 What Was The Date Of Your Most Recent Tobacco Screening? 12/25/2023 [email or web address] Information not available 12/25/2023 Do You Have Any Pets? Yes Information not available 12/07/2023 What Is Your Relationship Status? Single MIGRATION.0301 [id number] Information not available 10/19/2022 Do You Use Your Seat Belt Or Car Seat Routinely? Yes MIGRATION.0301 [id number] Information not available 10/19/2022 Do You Have Smoke And Carbon Monoxide Detectors In Your Home? Yes Information not available 12/07/2023 Are You Passively Exposed To Smoke? No Information not available 12/07/2023 Do You Or Have You Ever Used Smokeless Tobacco? Never Used Smokeless Tobacco MIGRATION.0301 [id number] Information not available 10/19/2022 Are There Any Smokers In Your House? No Information not available 12/07/2023 Do You Feel Stressed (tense, Restless, Nervous, Or Anxious, Or Unable To Sleep At Night)? [id number] MIGRATION.030 [id number] Information not available 10/19/2022 Do You Use Sunscreen Routinely? No Information not available 12/07/2023 Have You Recently Traveled Abroad? No MIGRATION.0301 196093 Information not available 10/19/2022 Are You Currently In School? No MIGRATION.0301 166500 Information not available 10/19/2022 Sex: Unknown Functional Status Question Answer Note LastModified by Organizat ion Details LastModified Time Do you have difficulty walking or climbing stairs? No MIGRATION.[id number] Information not available 10/19/2022 Do you have difficulty doing errands alone? No MIGRATION.[id number] 26 Information not available 10/19/2022 Do you have difficulty dressing or bathing? No MIGRATION.[id number] 26 Information not available 10/19/2022 What is your exercise level? Occasional [id number] Information not available 10/19/2022 Mental Status Question Answer Note LastModified by Organizat ion Details LastModified Time Do you have difficulty concentrating, remembering or making decisions? No [id number] Information not available 10/19/2022 Family History Relationship Description Onset Age of this Age Resolved Age Notes LastModified by Organization Details LastModified Time Father Heart disease [id number] Not available 10/19/2022 01:06:25 Father Hypertensive disorder [id number] Not available 10/19/2022 01:06:25 Notes:cancer-mother NO ENT [...] HAVE YOU BEEN HOSPITALIZED OR SEEN IN [facility] ER IN THE PAST YEAR [...] quadrivalent, PF 3 completed BERNARDO Reddy [place] [facility] 07/03/2023 11:25:39 pneumococcal polysaccharide PPV23 0 completed Not Available [facility] 10/19/2022 01:16:16 Tdap 0 completed Not Available [facility] 10/19/2022 01:16:16 Influenza, split virus, quadrivalent, PF 9 completed Not Available [facility] 10/19/2022 01:16:16 Influenza, split virus, quadrivalent, PF 2 completed Not Available [facility] 10/19/2022 01:16:16 Influenza, split virus, quadrivalent, PF 1 completed Not Available [facility] 10/19/2022 01:16:16 Past Encounters Encounter ID Performer Location Encounter Start Date Encounter Closed Date Diagnosis/Indication Diagnosis SNOMED-CT Code Diagnosis ICD10 Code Diagnosis Note [id number] [facility] [address] [place] [address] 10/27/2020 00:00:00 10/27/2020 10:48:24 [id number] [facility] [address] [place] [address] 03/08/2021 00:00:00 03/08/2021 17:34:39 [id number] _ATHENA_M IGRATION_ DEFAULT_1 _1 , 03/22/2021 00:00:00 03/22/2021 20:53:26 [id number] [facility] [address] [place] [address] 06/08/2021 00:00:00 06/09/2021 09:19:54 [id number] [facility] [address] [place] [address] 06/22/2021 00:00:00 06/22/2021 16:14:11 [id number] [facility] [address] [place] [address] 06/29/2021 00:00:00 06/29/2021 12:04:58 [id number] [facility] [address] [place] [address] 07/22/2021 00:00:00 07/22/2021 10:59:05 [id number] [facility] [address] [place] [address] 09/09/2021 00:00:00 09/09/2021 17:59:48 [id number] [facility] [address] [place] [address] 10/05/2021 00:00:00 10/05/2021 16:51:40 [id number] [facility] [place] [address] [place] [address] 10/12/2021 00:00:00 10/12/2021 16:03:48 [id number] [facility] [place] [address] [place] [address] 11/18/2021 00:00:00 11/18/2021 15:39:06 [id number] _ATHENA_M IGRATION_ DEFAULT_1 _1 , 12/20/2021 00:00:00 01/15/2022 22:33:55 [id number] [facility] [address] [facility] [place] [address] 12/28/2021 00:00:00 12/28/2021 11:10:02 [id number] [facility] [place] [address] [place] [address] 01/18/2022 00:00:00 01/18/2022 16:24:34 [id number] [facility] [address] [facility] [place] [address] 01/25/2022 00:00:00 01/25/2022 15:00:07 [id number] [facility] [place] [address] [place] [address] 02/17/2022 00:00:00 02/17/2022 15:06:30 [id number] [facility] [address] [facility] [place] [address] 03/29/2022 00:00:00 03/29/2022 10:58:26 [id number] [facility] [place] [address] [place] [address] 05/12/2022 00:00:00 05/12/2022 14:21:01 [id number] _ATHENA_M IGRATION_ DEFAULT_1 _1 , 05/16/2022 00:00:00 05/16/2022 16:50:12 [id number] [facility] [address] [facility] [place] [address] 07/13/2022 00:00:00 07/13/2022 17:28:54 [id number] [facility] [address] [place] [address] 09/06/2022 00:00:00 09/06/2022 15:23:[id number] [address] 10/11/2022 00:00:00 10/11/2022 17:27:53 [id number] Aditya Castro MD [address] [address] 11/01/2022 09:46:21 11/01/2022 10:14:11 [id number] Aditya Castro MD [address] [address] 11/08/2022 15:47:51 11/08/2022 16:30:48 Vitamin D deficiency 80328337 E55.9 Gout 74687201 M10.9 Hyperparathyroidism 6699 9008 E21.3 Uncontroll ed type 2 diabetes mellitus 485395255 E11.65 Hypertriglyceridemia 302 921426 E78.2 Hyperlipidemia 09505529 E78.5 Chronic constipation 236 255778 K59.09 Obesity 718867328 E66.9 [id number] Aditya Castro MD [address] [address] 01/23/2023 09:08:48 01/23/2023 09:38:23 Bronchitis 40074200 J40 Cough 86184810 R05.9 Chronic ki dney disease stage 5 583298059 N18.5 Allergic rhinitis 511285 04 J30.9 Vitamin D deficiency 347 95622 E55.9 [id number] Aditya Castro MD [address] [address] 06/27/2023 15:52:59 06/27/2023 16:15:54 Allergic contact dermatitis 857312606 L23.9 Tinea cruris 307677920 B 35.6 Administra tion of influenza vaccine 60458757 Z23 Chronic low back pain 27 7242400 M54.59 Gout 70422706 M10.9 [id number] Aditya Castro MD [address] [address] 07/10/2023 15:50:39 07/10/2023 16:20:39 Vitamin D deficiency 54495545 E55.9 Gout 27464479 M10.9 Hyperparathyroidism 6699 9008 E21.3 Uncontroll ed type 2 diabetes mellitus 737958597 E11.65 Hypertriglyceridemia 302 272809 E78.2 Hyperlipidemia 43637607 E78.5 Chronic constipation 236 927396 K59.09 Obesity 127260645 E66.9 Bronchitis 84301560 J40 [id number] KATIE Chen [address] [address] 12/07/2023 09:26:05 12/07/2023 11:06:01 Acute bacterial sinusitis 58382865 J01.90 Add humidifcat ion to bedroom at night [id number] Aditya Castro MD [address] [address] 12/25/2023 15:06:36 12/25/2023 16:45:08 Gout 52161786 M10.9 Vitamin D deficiency 347 89557 E55.9 Hyperparathyroidism 6699 9008 E21.3 Uncontroll ed type 2 diabetes mellitus 173378487 E11.65 Hypertriglyceridemia 302 717064 E78.2 Hyperlipidemia 44066367 E78.5 Chronic constipation 236 177556 K59.09 Obesity 888804491 E66.9 Bronchitis 80758954 J40 Adult heal th examination 441176637 Z00.00 Screening for disorder 878956572 Z13.9 Ulcer of mouth 16138182 K12.1 Screening for malignant neoplasm of prostate 729570230 Z12.5 [id number] Chris Linda DPM [facility] [place] [address] [place] [address] 01/08/2024 11:55:29 01/11/2024 12:25:06 Onychomycosis of toenails 470594131 B35.1 educated on conditiont opical antifungal Rxfollow-u p in 1-2 months Blister of toe without infection 38883803 S90.424A right 3rd toeMonitor for infection dailyBetad ine wet-to-dry dressings dailyfollo w-up 1 week Diabetic p eripheral neuropathy 650376341 E11.40 Patient educated on neuropathy , diabetes, diabetic diet, and daily foot exams. Patient is to check feet daily for new wounds, blisters, redness to prevent infection and ulceration s to the feet. Patient will return to clinic in 3 months for diabetic foot workup. Dystrophia unguium 52916 009 L60.3 nails debrided without incident [id number] Aditya Castro MD [facility] [address] 02/15/2024 10:01:48 02/15/2024 10:47:11 Gout 43382362 M10.9 Vitamin D deficiency 347 41854 E55.9 Hyperparathyroidism 6699 9008 E21.3 Uncontroll ed type 2 diabetes mellitus 781182183 E11.65 Hypertriglyceridemia 302 808685 E78.2 Hyperlipidemia 90095576 E78.5 Chronic constipation 236 479219 K59.09 Obesity 705360873 E66.9 Bronchitis 83523792 J40 Folliculitis 79009986 L7 3.9 Seborrheic dermatitis of scalp 206939005 L21.0 Pain of ri ght knee joint 9545092887 39797 M25.561 Bleeding of ear canal 30 5417718 H92.22 [id number] Rohit Jessica MD [facility] [place] [address] [place] [address] 02/15/2024 15:35:10 02/16/2024 12:44:58 Acute left otitis media 747183965 H66.92 [id number] Chris Linda DPM [facility] [place] [address] [place] [address] 03/11/2024 12:07:37 03/12/2024 16:35:57 Blister of foot without infection 1035922 S90.821A right foot medial 1st metatarsop halangeal jointofflo adingwound care daily until healedfoll ow-up 10 days Blister of toe without infection 09505378 S90.425A left 4th toetriple antibiotic ointment and Band-Aid appliedwou nd care as above Diabetes mellitus 453298 09 E13.9 Continue diabetic control per PCP recommenda tion Diabetic p eripheral neuropathy 311296725 E11.40 Patient educated on neuropathy , diabetes, diabetic diet, and daily foot exams. Patient is to check feet daily for new wounds, blisters, redness to prevent infection and ulceration s to the feet. Patient will return to clinic in 3 months for diabetic foot workup.con tinue diabetic shoe gear Dystrophia unguium 54897 009 L60.3 nails debrided without incident [id number] Aditya Castro MD [facility] [address] 04/16/2024 16:08:23 04/16/2024 17:22:18 Thoracic back pain 666763014 M54.6 Pain of ri ght shoulder blade 434627369 M25.511 Degenerati on of thoracolumbar intervertebral disc 73548482 M51.35 Hypothyroidism 72205087 E03.9 Obesity 919928624 E66.9 End stage renal failure on dialysis 538971152 N18.6 Chronic low back pain 27 3502662 M54.59 [id number] Chris Linda DPM [facility] [place] [address] [place] [address] 05/02/2024 10:29:22 05/20/2024 11:32:52 Onychomycosis of toenails 805698745 B35.1 right great toenailsch eduled total nail avulsionRe viewed treatment optionsFol low-up for procedure Right great toenail avulsion scheduled 07/15/2024 Peripheral venous insufficiency 00243395 I87.2 Rx compressio n stockings 20 30 mm Hgelevatio n when at restmonito r for signs of DVT at present seek medical attention immediatel y Dystrophia unguium 02253 009 L60.3 nails debrided without incident Abrasion a nd/or friction burn of skin 085817905 T14.8XXA healed abrasions x4 left lower leg Diabetic p eripheral neuropathy 598374673 E11.40 Patient educated on neuropathy , diabetes, diabetic diet, and daily foot exams. Patient is to check feet daily for new wounds, blisters, redness to prevent infection and ulceration s to the feet. Patient will return to clinic in 3 months for diabetic foot workup.jose ferreira diabetic shoe gear [id number] Aditya Castro MD [address] [address] 05/07/2024 09:01:36 05/07/2024 09:40:15 Gout 15521415 M10.9 Vitamin D deficiency 347 66779 E55.9 Hyperparathyroidism 6699 9008 E21.3 Uncontroll ed type 2 diabetes mellitus 916694674 E11.65 Hypertriglyceridemia 302 275313 E78.2 Hyperlipidemia 48056670 E78.5 Chronic constipation 236 823263 K59.09 Obesity 270689574 E66.9 Pain of ri ght knee joint 6407736576 41549 M25.561 Chronic Screening for malignant neoplasm of prostate 530581113 Z12.5 Chronic back pain 871100 002 G89.29 Screening colonoscopy 44 8450961 Z12.11 [id number] LESLY Gambino [facility] [place] [address] [place] [address] 05/10/2024 10:46:13 05/10/2024 11:48:23 Pain of right knee joint 1917759917 23567 M25.561 Bilateral osteoarthritis of knees 7370260942 54481 M17.0 Pain of le ft knee joint 2107232289 67296 M25.369 [id number] Aditya Castro MD [address] [address] 05/21/2024 15:45:57 05/21/2024 16:21:32 Gout 53808022 M10.9 Vitamin D deficiency 347 59188 E55.9 Uncontroll ed type 2 diabetes mellitus 626995242 E11.65 Hypertriglyceridemia 302 022406 E78.2 Hyperlipidemia 32466303 E78.5 Chronic constipation 236 054897 K59.09 Obesity 496367859 E66.9 Pain of ri ght knee joint 3275537289 14813 M25.561 Chronic Chronic back pain 710478 002 G89.29 [id number] LESLY Gambino [facility] [place] [address] [place] [address] 06/21/2024 11:06:53 06/21/2024 11:57:45 Bilateral osteoarthritis of knees 7651066735 46112 M17.0 Pain of ri ght knee joint 4003018294 62392 M25.561 Pain of le ft knee joint 0204909808 93195 M25.562 Pain in ri ght hip joint 8490922339 81570 M25.551 Trochanter ic bursitis of right hip 5258308916 71070 M70.61 [id number] Aditya Castro MD [facility] [address] [address] 07/15/2024 10:53:35 07/15/2024 12:16:54 Chronic constipation 139374022 K59.09 Chronic back pain 943749 002 G89.29 Obesity 050773627 E66.9 [facility] 995210580 Z76.89 Gallstone 670942794 K80. 20 Right flank pain 0447325 09 R10.9 Kidney stone 91834425 N2 0.0 Rt Impaired mobility 773420 05 Z74.09 Due to pain Health Concerns Section Related Observation LastModified by Organization Detai ls LastModified Time None Recorded Concern Status LastModified by Organization Details LastModified Time None Recorded Advance Directives Directive N: Payers Encounter Date Sequence Insurance Name Policy Number Policy Ge Covered Member ID Ge Member ID Guarantor Name 05/07/2024 2 [place] WHEN [place]ARE OR MEDICARE REPLACEMENT PRIMARY) Juvenal Daigle [id number] Juvenal Daigle 05/07/2024 1 [facility] (MEDICARE REPLACEMENT/AD VANTAGE - PPO) [id number] Juvenal Daigle [id number] Juvenal Daigle 05/10/2024 2 [place] OR MEDICARE REPLACEMENT PRIMARY) Juvenal Daigle [id number] Juvenal Daigle 05/10/2024 1 [facility] (MEDICARE REPLACEMENT/AD VANTAGE - PPO) [id number] Juvenal Daigle [id number] Juvenal Daigle 05/21/2024 2 [place] OR MEDICARE REPLACEMENT PRIMARY) Juvenal Daigle [id number] Juvenal Daigle 05/21/2024 1 [facility] (MEDICARE REPLACEMENT/AD VANTAGE - PPO) [id number] Juvenal Daigle [id number] Juvenal Daigle 06/21/2024 2 [place] OR MEDICARE REPLACEMENT PRIMARY) Juvenal Daigle [id number] Juvenal Daigle 06/21/2024 1 [facility] (MEDICARE REPLACEMENT/AD VANTAGE - PPO) [id number] Juvenal Daigle [id number] Juvenal Daigle 07/15/2024 2 [place] WHEN [place]ARE OR MEDICARE REPLACEMENT PRIMARY) Juvenal Daigle [id number] Juvenal Daigle 07/15/2024 1 [facility] (MEDICARE REPLACEMENT/AD VANTAGE - PPO) [id number] Juvenal Daigle [id number] Juvenal Daigle Notes Date Note Type Note [...] Pt is also f/u with Nephro at [place] for kidney transplant team.Pt is f/u with Endo for his DM and hyperparathyroidism.Pt has seen Derm at [facility] for his multiple moles and no concerns [...] not worked. Aditya Castro MD [address], [facility] [address], [place], [address], [employer] 05/07/2024 09:36:08 05/10/2024 text/html The patient is [...] the patient. LESLY Gambino [address], [facility] [address], [place], [address], [employer] 05/10/2024 13:42:57 05/21/2024 text/html Pt is here [...] Pt is also f/u with Nephro at [place] for kidney transplant team.Pt is f/u with Endo for his DM and hyperparathyroidism.Pt has seen Derm at [facility] for his multiple moles and no concerns [...] he has not worked. Aditya Castro MD [address] [place] [address], [facility] [address], [place], [address], [facility] [employer] 05/21/2024 16:20:25 06/21/2024 text/html The patient retu [...] the groin with weight-bearing. LESLY Gambino [address] [facility], [facility] [address], [place], [address], [place] [facility] [employer] 06/21/2024 12:03:04 07/15/2024 text/html ACV:ED fuv. C/o [...] Endo and Cardio regularly. Aditya Castro MD [address] [place] [address], [place], [address], [facility] [place] [facility] 07/15/2024 12:12:12
--- OUTSIDE RECORDS SUMMARY | 2024-08-24 05:37 | XMS_ITS | Continuity of Care Document ---
Author Organization [place] - [facility], [facility] [place] [facility] Address [address] [place] [address] Care Team Providers Care Validation Analyst Name Role Phone ADITYA CASTRO Primary Care Provider [phone] ADITYA CASTRO Referring Provider ADITYA CASTRO Primary [...] per schedule. Cont f/u with Endo at [facility] as per schedule. Cont f/u with Spine as per schedule. Cont f/u with Rheumat at [facility] as per schedule. Cont f/u with Surg as per schedule. Cont f/u with Cardio at [facility] as per schedule. Cont f/u with Nephro at [facility] as per schedule. Cont f/u with Hemat at [facility] as per schedule. Cont f/u with Plug Cutting [employer] as per schedule. Cont f/u with Ophtho at as per schedule. Cont f/u with Derm at [facility] as per schedule. Cont f/u with Dr. Langley (Hand surgeon) at as per schedule. Educated pt about alarming symptoms to monitor at home and call us back or get checked in ED. Pt had acute renal failure and was admitted hospital due to s/e from Allopurinol as per his Rail Filler. So pt can not take any Allopurinol [...] months as before. Annual labs in 05/15. [email or web address] Not available 07/15/2024 12:11:51 Plan of Treatment [...] you. 2023 [email or web address] Everton Hooker MD, [address], [place], [address], 08/12/2024 08:54:30 Procedures None recorded. Surgeries None recorded. Imaging None recorded. Medication Orders tamsulosi n 0.4 mg capsule 2023 [email or web address] [id number], [address], [place], [place], [id number], 07/15/2024 12:10:41 ketorolac 10 mg tablet 2023 [email or web address] [facility], [address], [place], [place], [id number], 07/15/2024 12:10:41 oxycodone 5 mg tablet 2023 [email or web address] [facility], [address], [place], [place], [id number], 07/15/2024 12:10:41 ondansetr on HCl 4 mg tablet 2023 [email or web address] [facility], [address], [place], [place], [id number], 07/15/2024 12:10:41 Patient TargetsNo targets recorded. Patient Instructions Encounter Date Encounter Id Patient Instructions Last Modified By Organization Details Last Modified Time 07/15/2024 [id number] starting a weigh t loss plan: care instructions [email or web address] Not available 07/15/2024 12:10:41 Reason for Referral [...] observ ation record ed. [email or web address] [facility] [place] [address], [place], [address], 06/21/2024 12:02:31 07/12/20 24 07/12/2024 CT, abdom en + pelvi s, w/o contr ast No observ ation record ed. [address], [place], [address], 07/15/2024 11:27:52 07/16/2007/16/2024 CT, abdom en + pelvi s, w/o contr ast No observ ation record ed. [address], [place], [address], 07/17/2024 09:02:10 08/11/20 24 08/11/2024 CT, abdom en + pelvi s, w/o contr ast No observ ation record ed. [address], [place], [address], 08/12/2024 09:33:09 Result Notes None recorded. 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 020601818 Active 2017 Not Available [facility] 3 01:10:47 Chronic back pain 094661764 Active 2022 Not Available [facility] 3 01:10:47 Hyperchol esterolem ia 20959029 Active 2017 Not Available [facility] 3 01:10:47 Seborrhei c dermatiti s of scalp 751214393 Active 2022 Not Available [facility] 3 01:10:47 Chronic physical disabilit y 845377602 Active 2018 Not Available [facility] 3 01:10:47 History of deep vein thrombosi s 841507330 Active 2017 Not Available [facility] 3 01:10:47 Heartburn 22943335 Active 2017 Not Available [facility] 3 01:10:47 Ultrasoun d scan abnormal 362008430 Active 2020 Not Available [facility] 3 01:10:47 Hypertrop hy of nasal turbinate s 92001331 Active 2021 Not Available [facility] 3 01:10:47 Sensorine ural hearing loss of bilateral ears 294059382 Active 2021 Not Available [facility] 3 01:10:47 Periphera l venous insuffici ency 41425502 Active 2020 Not Available [facility] 3 01:10:47 Myocardia l infarctio n 35994102 Completed 201705/08/2018 Not Available [facility] 3 01:10:48 Stable angina 434414371 Active 2017 Not Available [facility] 3 01:10:48 End stage renal failure on dialysis 285248643 Active 2019 Not Available [facility] 3 01:10:48 Degenerat ion of lumbar intervert ebral disc 80752089 Active 2018 Not Available [facility] 3 01:10:48 Gastroeso phageal reflux disease without esophagit is 799252250 Active 2017 Not Available [facility] 3 01:10:48 Anemia 653174119 Active 2017 Not Available [facility] 3 01:10:48 Chronic low back pain 682342036 Active 2018 Not Available [facility] 3 01:10:48 Pain in toe 517926597 Active 2018 Not Available [facility] 3 01:10:48 Pain in toe 338577598 Active 2018 [facility] Available [facility] 3 01:10:48 Right upper quadrant pain 017147542 Active 2020 Not Available [facility] 3 01:10:48 Type 2 diabetes mellitus without complicat ion 299428899 Completed 201701/10/2019 Not Available [facility] 3 01:10:48 Pain in left foot 59764653778 9107 Active 2019 Not Available [facility] 3 01:10:48 Vitamin D deficienc y 49693437 Active 2017 Not Available [facility] 3 01:10:49 Seasonal allergic rhinitis 263427291 Active 2017 Not Available [facility] 3 01:10:49 Sinusitis 62187761 Active 2021 Not Available [facility] 3 01:10:49 Hypertens bianca disorder 18634705 Active 2017 Not Available [facility] 3 01:10:49 Osteoarth ritis 526473590 Active 2019 Not Available [facility] 3 01:10:49 Umbilical hernia 071931775 Active 2018 Not Available [facility] 3 01:10:49 Vertigo 771514634 Active 2021 Not Available [facility] 3 01:10:49 Abrasion and/or friction burn of skin 001188149 Active 2018 Not Available [facility] 3 01:10:49 Chronic sinusitis 27585240 Active 2021 Not Available [facility] 3 01:10:49 Multiple benign melanocyt ic nevi 705508221 Active 2017 Not Available [facility] 3 01:10:50 Deep venous thrombosi s of lower extremity 760610255 Active 2022 Not Available [facility] 3 01:10:50 Dizziness 266404653 Active 2017 Not Available [facility] 3 01:10:50 Dysphagia 29590892 Active 2021 Not Available [facility] 3 01:10:50 Obesity 298332046 Active 2017 Not Available [facility] 3 01:10:50 Ketoacido sis due to type 1 diabetes mellitus 506482724 Active 2019 Not Available [facility] 3 01:10:50 Nausea 715368050 Active 2021 Not Available [facility] 3 01:10:50 Congestiv e heart failure 16323115 Active 2017 Not Available [facility] 3 01:10:50 Diabetic periphera l neuropath y 633955946 Active 2017 Not Available [facility] 3 01:10:51 Asymmetri nikos hearing loss 110694980 Active 2021 Not Available [facility] 3 01:10:51 Chronic kidney disease stage 4 921219858 Completed 201707/29/2020 Not Available [facility] 3 01:10:51 Chronic kidney disease stage 5 582769503 Active 2019 Not Available [facility] 3 01:10:51 Uncontrol led type 2 diabetes mellitus 314259385 Completed 201705/16/2019 Aditya Castro MD [address] [address], [place], [address] , [facility] 4 09:03:03 Gastritis 8422134 Active 2021 Not Available [facility] 3 01:10:51 End-stage renal disease 20242899 Active 2019 Not Available [facility] 3 01:10:51 Type 1 diabetes mellitus 32741590 Active 2018 Not Available [facility] 3 01:10:52 Atrial fibrillat ion 71924560 Active 2017 Not Available [facility] 3 01:10:52 Hyperlipi demia 49078538 Active 2017 Not Available [facility] 3 01:10:52 Heart disease 04063348 Active 2017 Not Available [facility] 3 01:10:52 Hyperpara thyroidis m 33461473 Active 2018 Not Available [facility] 3 01:10:52 Nasal congestio n 49405507 Active 2021 Not Available [facility] 3 01:10:52 Diabetes mellitus 64444600 Active 2017 Not Available [facility] 3 01:10:52 Obstructi ve sleep apnea syndrome 27817371 Active 2018 Not Available [facility] 3 01:10:53 Epigastri c pain 10094022 Active 2021 Not Available [facility] 3 01:10:53 Chronic idiopathi c constipat ion 82939079 Active 2020 Not Available [facility] 3 01:10:53 Corneal abrasion 46870392 Active 2018 Not Available [facility] 3 01:10:53 Dystrophi a unguium 41397496 Active 2018 Not Available [facility] 3 01:10:53 Gout 04899450 Active 2017 Not Available [facility] 3 01:10:53 Chronic renal failure 49090746 Completed 201705/08/2018 Not Available [facility] 3 01:10:54 Skin lesion 18649541 Active 2017 Not Available [facility] 3 01:10:54 Hypertrig lyceridem ia 841067466 Active 2022 Aditya Castro MD [address] [facility] [address], [place], [address] , [facility] 3 16:04:08 Chronic constipat ion 764691406 Active 2022 Aditya Castro MD [address], [address], [place], [address] , [place] [facility] 3 16:45:46 Cough 52378431 Active 2022 Aditya Castro MD [address], [address], [place], [address] , [place] [facility] 3 12:45:44 Bronchiti s 05786218 Active 2022 Aditya Castro MD [address], [address], [place], [address] , [place] [facility] 3 09:22:50 Allergic rhinitis 40102846 Active 2022 Aditya Castro MD [address], [address], [place], [address] , [place] [facility] [place] [facility] 3 09:28:39 Allergic contact dermatiti s 042870359 Active 2022 Aditya Castro MD [address], [address], [place], [address] , [place] [facility] 3 16:06:02 Tinea cruris 926346434 Active 2022 Aditya Castro MD [address], [address], [place], [address] , [place] [facility] 3 16:06:15 Acute bacterial sinusitis 78219269 Active 2023 KATIE Chen [address], [address], [place], [address] , [place] [facility] 4 09:55:25 Ulcer of mouth 33391533 Active 2023 Aditya Castro MD [address], [address], [place], [address] , [facility] 4 09:03:52 Onychomyc osis of toenails 141566412 Active 2023 Chris Linda DPM [address], [address], [place], [address] , [place] [facility] [place] [facility] 12:24:55 Folliculi tis 72988249 Active 2023 Aditya Castro MD [address], [address], [place], [address] , [place] [facility] [place] [facility] 4 10:26:36 Pain of right knee joint 96535523459 4100 Active 2023 Aditya Castro MD [address], [address], [place], [address] , [place] [facility] [place] [facility] 10:31:07 Bleeding of ear canal 547550657 Active 2023 Aditya Castro MD [address], [address], [place], [address] , [place] [facility] [place] [facility] 10:40:38 Acute left otitis media 437540566 Active 2023 Rohit Jessica MD [address], [address], [place], [address] , [facility] [place] [facility] 16:04:39 Thoracic back pain 638507004 Active 2023 Aditya Castro MD [address], [address], [place], [address] , [place] [facility] [place] [facility] 16:28:59 Pain of right shoulder blade 935009762 Active 2023 Aditya Castro MD [address], [address], [place], [address] , [place] [facility] [place] [facility] 4 16:30:04 Degenerat ion of thoracolu mbar intervert ebral disc 37636376 Active 2023 Aditya Castro MD [address], [address], [place], [address] , [place] [facility] [place] [facility] 4 16:30:54 Hypothyro idism 29921991 Active 2023 Aditya Castro MD [address], [address], [place], [address] , [place] [facility] [place] [facility] 4 16:34:29 Uncontrol led type 2 diabetes mellitus 597604492 Active 2023 Aditya Castro MD [address], [address], [place], [address] , [place] [facility] 4 09:03:03 Bilateral osteoarth ritis of knees 11325152947 9107 Active 2023 Sofia Newby null, [place] [facility] 4 11:42:16 Pain of left knee joint 88715806022 4107 Active 2023 LESLY Gambino [address], [address], [place], [address] , [place] [facility] 4 13:42:14 Pain in right hip joint 57972203655 9102 Active 2023 KELLE John, [place] [facility] 4 11:11:43 Trochante margarita bursitis of right hip 98328251354 9100 Active 2023 LESLY Gambino [address], [address], [place], [address] , [place] [facility] 4 12:00:40 Gallstone 587224392 Active 2023 Aditya Castro MD [address], [address], [place], [address] , [place] [facility] 4 11:21:33 Right flank pain 988143805 Active 2023 Aditya Castro MD [address], [address], [place], [address] , [place] [facility] 4 11:29:38 Kidney stone 79065980 Active 2023 Aditya Castro MD [address], [address], [place], [address] , [facility] 11:31:01 Notes:blood clots, coronary artery disease, head trauma or injury, kidney disease, seizures, use of blood thinners, balance problems, numbness or tingling, loss of memory, swelling in legs, shortness of breath, muscle pain, back/neck pain, swollen or painful joints, excessive thirst, dry mouth, sleep apnea, wears glasses Some problems listed in Document: #[id number] could not be added to this patient's chart. Please review this document and add these problems to the patient's chart manually as needed. Problem Notes None recorded. Procedures Surgical History Date Name Laterality Status Provider Name and Address Organization Details Recorded Time 05/02/20 24 Nail Debridement completed Chris Linda DPM [address], [place], [address], [facility] 05/20/2024 09:31:13 03/11/20 24 Nail Debridement completed Chris Linda DPM [address], [place], [address], [employer] 03/11/2024 12:35:50 03/11/20 24 Wound Care-Podiatry completed Chris Linda DPM [address], [place], [address], [facility] 03/11/2024 12:34:57 01/08/20 24 Wound Care-Podiatry completed Chris Linda DPM [address], [place], [address], [employer] 01/08/2024 12:26:31 12/25/19 24 Medicare Wellness CPT Code, subsequent completed Beth Willis RN [place] [employer] [facility] 12/25/2023 15:24:37 11/06/19 24 Medicare Wellness CPT Code, subsequent cancelled Beth Willis RN [place] [employer] 11/03/2023 10:10:00 01/08/20 22 SEPTOPLASTY (SURG) completed Not Available [facility] 10/19/2022 01:16:48 01/22/20 21 Cardiac Cath completed Not Available [facility] 023 01:06:21 reduction of nasal turbinate completed Not Available [facility] 10/19/2022 01:06:21 procedure on heart completed KELLE John [place] [employer] [facility] 05/10/2024 11:11:45 Imaging Results None recorded. Procedure Notes None recorded. Medical Equipment None Reported. Allergies Allergen ID Allergen Name Allergen Category Reaction Reaction Severity Criticality Documentation Date Start Date Code Code System Note Provider Name and Address Organization Details Recorded Time 1834 Iodinated contrast media (substanc e) medicatio n rash severe Not available 10/19/2022 96511 2004 SNOMED Not Available [facility] 3 01:16:23 1835 Brilinta medicatio n rash severe Not available 10/19/2022 04942 36 RxNorm Not Available [facility] 3 01:16:23 1836 allopurin ol medicatio n other severe Not available 10/19/2022 519 RxNorm Not Available [facility] 3 01:16:23 Medications Name Sig Start Date [...] mg by injectio n route. 2023 active [facility]: 0003-04 94-20 Not Available Not [...] U-100 Insulin KwikPen 100 unit/mL (3 mL) [facility] active Not Available Not Available Not [...] Updated DateTime 4 177.8 cm 38 kg/m2 495079. 19 g 97.3 [degF] 72 /min 97 % 97 % 150 mm[Hg] 78 mm[Hg] Lucinda Fletcher RN [place] [facility] 11:26:31 Date Recorded Respiratory rate Provider Name a nd Address Organization Details Last Updated DateTime 07/15/2024 22 /min Lisa Gonzáles [address] [facility] [address], [place], [address], [facility] [employer] 07/15/2024 12:05:38 Social History Question Answer Notes LastModified by Organization Details LastModified Time Tobacco Smoking Status Never Smoker Not Available [facility] 10/19/2022 01:04:37 Do You Have An Advance Directive? No MIGRATION.0301 107938 Information not available 10/19/2022 What Is Your Level Of Alcohol Consumption? None MIGRATION.0301 319332 Information not available 10/19/2022 Are You Blind Or Do You Have Difficulty Seeing? No MIGRATION.0301 006499 Information not available 10/19/2022 Is Blood Transfusion Acceptable In An Emergency? Yes Information not available 12/07/2023 What Is Your Level Of Caffeine Consumption? Occasional MIGRATION.0301 693477 Information not available 10/19/2022 How Much Tobacco Do You Chew? None MIGRATION.0301 914584 Information not available 10/19/2022 What Is Your Code Status? Full Code Information not available 12/07/2023 In The 14 Days Before Symptom Onset, Have You Had Close Contact With A Laboratory-confi rmed COVID-19 While That Case Was Ill? No MIGRATION.0301 614495 Information not available 10/19/2022 In The 14 Days Before Symptom Onset, Have You Had Close Contact With A Person Who Is Under Investigation For COVID-19 While That Person Was Ill? No MIGRATION.0301 942577 Information not available 10/19/2022 Are You Deaf Or Do You Have Serious Difficulty Hearing? No MIGRATION.0301 357949 Information not available 10/19/2022 What Type Of Diet Are You Following? CARDIAC And Renal MIGRATION.0301 947470 Information not available 10/19/2022 Which Illicit Or Recreational Drugs Have You Used? NONE MIGRATION.0301 339814 Information not available 10/19/2022 Do You Or Have You Ever Used E-cigarettes Or Vape? Never Used Electronic Cigarettes MIGRATION.0301 223419 Information not available 10/19/2022 What Is The Highest Grade Or Level Of School You Have Completed Or The Highest Degree You Have Received? [id number] 2 Years MIGRATION.0301 919954 Information not available 10/19/2022 What Is Your Occupation? DISABLED MIGRATION.030 331205 Information not available 10/19/2022 Have There Been Any Changes To Your Family Or Social Situation? No Information not available 12/07/2023 Are There Any Guns Present In Your Home? No MIGRATION.0301 688899 Information not available 10/19/2022 Do You Use Insect Repellent Routinely? No Information not available 12/07/2023 Where Do You Live? SingleLevelHouse Information not available 12/07/2023 Advance Directive- Providers Has Reviewed Directive And Consents To Follow Them (insert Provider Name With Any Objectives In Notes Field) No MIGRATION.030 060845 Information not available 10/19/2022 Presence Of Domestic [...] Do You Have A Medical Power Of Manager Of Compliance? No Information not available 12/07/2023 What Was The Date Of Your Most Recent Tobacco Screening? 12/25/2023 [email or web address] Information not available 12/25/2023 Do You Have Any Pets? Yes Information not available 12/07/2023 What Is Your Relationship Status? Single MIGRATION.0301 985893 Information not available 10/19/2022 Do You Use Your Seat Belt Or Car Seat Routinely? Yes MIGRATION.030 860537 Information not available 10/19/2022 Do You Have Smoke And Carbon Monoxide Detectors In Your Home? Yes Information not available 12/07/2023 Are You Passively Exposed To Smoke? No Information not available 12/07/2023 Do You Or Have You Ever Used Smokeless Tobacco? Never Used Smokeless Tobacco MIGRATION.0301 152073 Information not available 10/19/2022 Are There Any Smokers In Your House? No Information not available 12/07/2023 Do You Feel Stressed (tense, Restless, Nervous, Or Anxious, Or Unable To Sleep At Night)? [id number] MIGRATION.030 115267 Information not available 10/19/2022 Do You Use Sunscreen Routinely? No Information not available 12/07/2023 Have You Recently Traveled Abroad? No MIGRATION.0301 479916 Information not available 10/19/2022 Are You Currently In School? No MIGRATION.030 217705 Information not available 10/19/2022 Sex: Unknown Functional Status Question Answer Note LastModified by Organizat [employer] Details LastModified Time Do you have difficulty walking or climbing stairs? No MIGRATION.[id number] 26 Information not available 10/19/2022 Do you have difficulty doing errands alone? No MIGRATION.33884886 26 Information not available 10/19/2022 Do you have difficulty dressing or bathing? No MIGRATION.18146107 26 Information not available 10/19/2022 What is your exercise level? Occasional MIGRATION.87801085 26 Information not available 10/19/2022 Mental Status Question Answer Note LastModified by Organizat [employer] Details LastModified Time Do you have difficulty concentrating, remembering or making decisions? No MIGRATION.610858620 6 Information not available 10/19/2022 Family History Relationship Description Onset Age of this Age Resolved Age Notes LastModified by Organization Details LastModified Time Father Heart disease MIGRATION.689 [id number] Not available 10/19/2022 01:06:25 Father Hypertensive disorder MIGRATION.447 [id number] Not available 10/19/2022 01:06:25 Notes:cancer-mother NO ENT [...] HAVE YOU BEEN HOSPITALIZED OR SEEN IN [facility] IN THE PAST YEAR ? N [...] virus, quadrivalent, PF 3 completed BERNARDO Reddy [employer] 07/03/2023 11:25:39 pneumococcal polysaccharide PPV23 0 completed Not Available [facility] 10/19/2022 01:16:16 Tdap 0 completed Not Available [facility] 10/19/2022 01:16:16 Influenza, split virus, quadrivalent, PF 9 completed Not Available [facility] 10/19/2022 01:16:16 Influenza, split virus, quadrivalent, PF 2 completed Not Available [facility] 10/19/2022 01:16:16 Influenza, split virus, quadrivalent, PF 1 completed Not Available [facility] 10/19/2022 01:16:16 Past Encounters Encounter ID Performer Location Encounter Start Date Encounter Closed Date Diagnosis/Indication Diagnosis SNOMED-CT Code Diagnosis ICD10 Code [id number] LESLY Gambino [facility] [place] [address] [place] [address] 06/21/2024 11:06:53 06/21/2024 11:57:45 Bilateral osteoarthritis of knees 9853122426 94772 M17.0 Pain of ri ght knee joint 0067543935 67555 M25.561 Pain of le ft knee joint 8043776877 89645 M25.562 Pain in ri ght hip joint 3146658469 41948 M25.551 Trochanter ic bursitis of right hip 0515843764 60841 M70.61 [id number] Aditya Castro MD [facility] [address] [address] 07/15/2024 10:53:35 07/15/2024 12:16:54 Chronic constipation [id number] K59.09 Chronic back pain 716201 002 G89.29 Obesity 854307416 E66.9 [facility] [id number] Z76.89 Gallstone 991668810 K80. 20 Right flank pain 7477821 09 R10.9 Kidney stone 67600024 N2 0.0 Impaired mobility 320009 05 Z74.09 Health Concerns Section Related Observation LastModified by Organization Detai ls LastModified Time None Recorded Concern Status LastModified by Organization Details LastModified Time None Recorded Payers Encounter Date Sequence Insurance Name Policy Number Policy Ge Covered Member ID Ge Member ID Guarantor Name 07/15/2024 2 [place]SECON[place]AN WHEN MEDICARE OR MEDICARE REPLACEMENT PRIMARY) Juvenal Daigle [id number] Juvenal Daigle 07/15/2024 1 [facility] (MEDICARE REPLACEMENT/AD VANTAGE - PPO) [id number] Juvenal Daigle [id number] Juvenal Daigle Notes Date Note Type Note [...] Endo and Cardio regularly. Aditya Castro MD [address] [place] [address], [place], [address], [facility] [employer] 07/15/2024 12:12:12
--- OUTSIDE RECORDS SUMMARY | 2024-08-24 05:38 | XMS_ITS | Continuity of Care Document ---
Author Organization [place] - [facility], [employer] [facility] [place] Address [address] [place] [address] Care Team Providers Care Professor Of Social Work Name Role Phone ADITYA CASTRO Primary Care [...] DO Not Attach Compendium, Do Not Delete/merge, [id number] 06/21/2024 11:43:13 Surgeries None recorded. Imaging XR, hip + pelvis, unilatera l 2023 024 [email or web address] [facility] [place], [facility] [facility] [address], [place], [address], 06/21/2024 12:02:32 Medication Orders bupivacai ne HCl 0.5 % (5 mg/mL) injection solution 2023 024 [email or web address] [id number], [address], [place], [phone], 06/21/2024 11:52:35 Kenalog 10 mg/mL suspensio n for injection 2023 024 [id number] [facility][id number], [address], [place], [phone], 07/12/2024 21:17:10 Patient TargetsNo targets recorded. Patient InstructionsNo instructions recorded. Reason for Referral None Reported. Results Created Date Observation Date Name Description Value Unit Range Abnormal Flag Note LastModifiedBy Organization Detail LastModifiedTime 06/21/20 XR, hip + pelvi s, unila teral No observ ation record ed. [email or web address] [facility] [place] [address] [facility] [address], [place], [address], 06/21/2024 12:02:31 07/12/20 24 07/12/2024 CT, abdom en + pelvi s, w/o contr ast No observ ation record ed. [address], [place], [address], 07/15/2024 11:27:52 07/16/20 24 07/16/2024 CT, abdom en + pelvi s, w/o contr ast No observ ation record ed. [address], [place], [address], 07/17/2024 09:02:10 08/11/20 24 08/11/2024 CT, abdom en + pelvi s, w/o contr ast No observ ation record ed. [address], [place], [address], 08/12/2024 09:33:09 Result Notes None recorded. Problems Name Problem SNOMED Code Status Onset Date Resolution Date Notes Provider Name and Address Organization Details Recorded Time Atypical chest pain 631712955 Active 2019 Not Available [facility] 3 01:10:47 Plantar fasciitis of right foot 55364070442 444986 Active 2021 Not Available [facility] 3 01:10:47 Deviated nasal septum 055400190 Active 2021 Not Available [facility] 3 01:10:47 Deep venous thrombosi s 440398661 Completed 201705/08/2018 Not Available [facility] 3 01:10:47 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 736237805 Active 2017 Not Available [facility] 3 01:10:47 Chronic back pain 593744528 Active 2022 Not Available [facility] 3 01:10:47 Hyperchol esterolem ia 84332890 Active 2017 Not Available [facility] 3 01:10:47 Seborrhei c dermatiti s of scalp 342623865 Active 2022 Not Available [facility] 3 01:10:47 Chronic physical disabilit y 501687722 Active 2018 Not Available [facility] 3 01:10:47 History of deep vein thrombosi s 807784515 Active 2017 Not Available [facility] 3 01:10:47 Heartburn 47047702 Active 2017 Not Available [facility] 3 01:10:47 Ultrasoun d scan abnormal 068516074 Active 2020 Not Available [facility] 3 01:10:47 Hypertrop hy of nasal turbinate s 55130848 Active 2021 Not Available [facility] 3 01:10:47 Sensorine ural hearing loss of bilateral ears 667360864 Active 2021 Not Available [facility] 3 01:10:47 Periphera l venous insuffici ency 47525148 Active 2020 Not Available [facility] 3 01:10:47 Myocardia l infarctio n 15410446 Completed 201705/08/2018 Not Available [facility] 3 01:10:48 Stable angina 819483733 Active 2017 Not Available [facility] 3 01:10:48 End stage renal failure on dialysis 349054686 Active 2019 Not Available [facility] 3 01:10:48 Degenerat ion of lumbar intervert ebral disc 24164530 Active 2018 Not Available [facility] 3 01:10:48 Gastroeso phageal reflux disease without esophagit is 879892519 Active 2017 Not Available [facility] 3 01:10:48 Anemia 813200464 Active 2017 Not Available [facility] 3 01:10:48 Chronic low back pain 440293991 Active 2018 Not Available [facility] 3 01:10:48 Pain in toe 470186888 Active 2018 Not Available [facility] 3 01:10:48 Pain in toe 011249982 Active 2018 Not Available [facility] 3 01:10:48 Right upper quadrant pain 233010564 Active 2020 Not Available [facility] 3 01:10:48 Type 2 diabetes mellitus without complicat ion 932140239 Completed 201701/10/2019 Not Available [facility] 3 01:10:48 Pain in left foot 10296117331 9107 Active 2019 Not Available [facility] 3 01:10:48 Vitamin D deficienc y 20736870 Active 2017 Not Available [facility] 3 01:10:49 Seasonal allergic rhinitis 643382943 Active 2017 Not Available [facility] 3 01:10:49 Sinusitis 23089528 Active 2021 Not Available [facility] 3 01:10:49 Hypertens bianca disorder 74120589 Active 2017 Not Available [facility] 3 01:10:49 Osteoarth ritis 573435811 Active 2019 Not Available [facility] 3 01:10:49 Umbilical hernia 650529088 Active 2018 Not Available [facility] 3 01:10:49 Vertigo 185036780 Active 2021 Not Available [facility] 3 01:10:49 Abrasion and/or friction burn of skin 508296848 Active 2018 Not Available [facility] 3 01:10:49 Chronic sinusitis 82288064 Active 2021 Not Available [facility] 3 01:10:49 Multiple benign melanocyt ic nevi 067106928 Active 2017 Not Available [facility] 3 01:10:50 Deep venous thrombosi s of lower extremity 257371757 Active 2022 Not Available [facility] 3 01:10:50 Dizziness 462384706 Active 2017 Not Available [facility] 3 01:10:50 Dysphagia 43546892 Active 2021 Not Available [facility] 3 01:10:50 Obesity 158162243 Active 2017 Not Available [facility] 3 01:10:50 Ketoacido sis due to type 1 diabetes mellitus 294776516 Active 2019 Not Available [facility] 3 01:10:50 Nausea 580430892 Active 2021 Not Available [facility] 3 01:10:50 Congestiv e heart failure 72172193 Active 2017 Not Available [facility] 3 01:10:50 Diabetic periphera l neuropath y 337221902 Active 2017 Not Available [facility] 3 01:10:51 Asymmetri nikos hearing loss 089107324 Active 2021 Not Available [facility] 3 01:10:51 Chronic kidney disease stage 4 682955768 Completed 201707/29/2020 Not Available [facility] 3 01:10:51 Chronic kidney disease stage 5 273769872 Active 2019 Not Available [facility] 3 01:10:51 Uncontrol led type 2 diabetes mellitus 874369008 Completed 201705/16/2019 Aditya Castro MD [address] [place] [address], [address] [address], [place], [address] , [facility] 4 09:03:03 Gastritis 4571945 Active 2021 Not Available [facility] 3 01:10:51 End-stage renal disease 15892330 Active 2019 Not Available [facility] 3 01:10:51 Type 1 diabetes mellitus 69071667 Active 2018 Not Available [facility] 3 01:10:52 Atrial fibrillat ion 87863717 Active 2017 Not Available [facility] 3 01:10:52 Hyperlipi demia 62556803 Active 2017 Not Available [facility] 3 01:10:52 Heart disease 29716401 Active 2017 Not Available [facility] 3 01:10:52 Hyperpara thyroidis m 21427402 Active 2018 Not Available [facility] 3 01:10:52 Nasal congestio n 49853009 Active 2021 Not Available [facility] 3 01:10:52 Diabetes mellitus 15389541 Active 2017 Not Available [facility] 3 01:10:52 Obstructi ve sleep apnea syndrome 07656436 Active 2018 Not Available [facility] 3 01:10:53 Epigastri c pain 40944833 Active 2021 Not Available [facility] 3 01:10:53 Chronic idiopathi c constipat ion 38824592 Active 2020 Not Available [facility] 3 01:10:53 Corneal abrasion 38920522 Active 2018 Not Available [facility] 3 01:10:53 Dystrophi a unguium 80144770 Active 2018 Not Available [facility] 3 01:10:53 Gout 59622926 Active 2017 Not Available [facility] 3 01:10:53 Chronic renal failure 37961911 Completed 201705/08/2018 Not Available [facility] 3 01:10:54 Skin lesion 69955505 Active 2017 Not Available [facility] 3 01:10:54 Hypertrig lyceridem ia 057058163 Active 2022 Aditya Castro MD [address] [place] [address], [address] [address], [place], [address] , [employer] [facility] 3 16:04:08 Chronic constipat ion 086129902 Active 2022 Aditya Castro MD [address], [place], [address] , [facility] [employer] [facility] [facility] 3 16:45:46 Cough 58273823 Active 2022 Aditya Castro MD [address], [place], [address] , [employer] [facility] 3 12:45:44 Bronchiti s 15012538 Active 2022 Aditya Castro MD [address], [place], [address] , [employer] [facility] 3 09:22:50 Allergic rhinitis 08245850 Active 2022 Aditya Castro MD [address], [place], [address] , [employer] [facility] 3 09:28:39 Allergic contact dermatiti s 397745534 Active 2022 Aditya Castro MD [address], [place], [address] , [employer] [facility] 3 16:06:02 Tinea cruris 304996204 Active 2022 Aditya Castro MD [address], [place], [address] , [employer] [facility] 3 16:06:15 Acute bacterial sinusitis 76702712 Active 2023 KATIE Chen [address] [place], [address] , [facility] [employer] [facility] [employer] [facility] 4 09:55:25 Ulcer of mouth 19369954 Active 2023 Aditya Castro MD [address] [place] [place], [address] , [facility] 4 09:03:52 Onychomyc osis of toenails 049435733 Active 2023 Chris Linda DPM [address] [employer] [address], [place], [address] , [facility] 4 12:24:55 Folliculi tis 66101344 Active 2023 Aditya Castro MD [address], [address] , [facility] 4 10:26:36 Pain of right knee joint 88593455004 4100 Active 2023 Aditya Castro MD [address], [address] , [facility] [employer] [facility] 4 10:31:07 Bleeding of ear canal 714440164 Active 2023 Aditya Castro MD [address], [address] , [facility] [employer] [facility] 4 10:40:38 Acute left otitis media 139740626 Active 2023 Rohit Jessica MD [address], [address] , [facility] 4 16:04:39 Thoracic back pain 883551120 Active 2023 Aditya Castro MD [address] [address], [place], [address] , [facility] 4 16:28:59 Pain of right shoulder blade 258265295 Active 2023 Aditya Castro MD [address], [address] , [facility] 4 16:30:04 Degenerat ion of thoracolu mbar intervert ebral disc 41101321 Active 2023 Aditya Castro MD [address], [address] , [place] [facility] 4 16:30:54 Hypothyro idism 62891840 Active 2023 Aditya Castro MD [address], [place], [address] , [facility] 4 16:34:29 Uncontrol led type 2 diabetes mellitus 761463079 Active 2023 Aditya Castro MD [address], [place], [address] , [facility] 4 09:03:03 Bilateral osteoarth ritis of knees 99682246252 9107 Active 2023 Sofiaasif Salestejinder agosto, [place] [facility] 4 11:42:16 Pain of left knee joint 19279137100 4107 Active 2023 LESLY Gambino [address], [place], [address] , [facility] 4 13:42:14 Pain in right hip joint 86894327691 9102 Active 2023 KELLE John, [place] [facility] 4 11:11:43 Trochante margarita bursitis of right hip 35757100766 9100 Active 2023 LESLY Gambino [address], [place], [address] , [facility] 4 12:00:40 Gallstone 627419807 Active 2023 Aditya Castro MD [address], [place], [address] , [facility] 4 11:21:33 Right flank pain 048266458 Active 2023 Aditya Castro MD [address], [place], [address] , [place] [facility] 4 11:29:38 Kidney stone 57153176 Active 2023 Aditya Castro MD [address], [place], [address] , [employer] 11:31:01 Notes:blood clots, coronary artery disease, head trauma or injury, kidney disease, seizures, use of blood thinners, balance problems, numbness or tingling, loss of memory, swelling in legs, shortness of breath, muscle pain, back/neck pain, swollen or painful joints, excessive thirst, dry mouth, sleep apnea, wears glasses Some problems listed in Document: #[id number] could not be added to this patient's chart. Please review this document and add these problems to the patient's chart manually as needed. Problem Notes None recorded. Procedures Surgical History Date Name Laterality Status Provider Name and Address Organization Details Recorded Time 05/02/20 24 Nail Debridement completed Chris Linda DPM [address], [place], [address], [employer] 05/20/2024 09:31:13 03/11/20 24 Nail Debridement completed Chris Linda DPM [address], [place], [address], [employer] 03/11/2024 12:35:50 03/11/20 24 Wound Care-Podiatry completed Chris Linda DPM [address], [place], [address], [employer] [facility] 03/11/2024 12:34:57 01/08/20 24 Wound Care-Podiatry completed Chris Linda DPM [address], [place], [address], [employer] 01/08/2024 12:26:31 12/25/19 24 Medicare Wellness CPT Code, subsequent completed [address] [facility] [employer] [facility] 12/25/2023 15:24:37 11/06/19 24 Medicare Wellness CPT Code, subsequent cancelled [address] [facility] [employer] [facility] 11/03/2023 10:10:00 01/08/20 22 SEPTOPLASTY (SURG) completed Not Available [facility] 10/19/2022 01:16:48 01/22/20 21 Cardiac Cath completed Not Available [facility] 023 01:06:21 reduction of nasal turbinate completed Not Available [facility] 10/19/2022 01:06:21 procedure on heart completed Lisa Lopez CNA [place] [facility] 05/10/2024 11:11:45 Imaging Results Imaging Date Name Status LastModified by Organiz ation Details LastModified Time 06/21/2024 XR, hip + pelvis, unilateral completed [email or web address] [facility] [place] [address], [place], [address], 06/21/2024 12:02:31 Procedure Notes None recorded. Medical Equipment None Reported. Allergies Allergen ID Allergen Name Allergen Category Reaction Reaction Severity Criticality Documentation Date Start Date Code Code System Note Provider Name and Address Organization Details Recorded Time 1834 Iodinated contrast media (substanc e) medicatio n rash severe Not available 10/19/2022 83376 2004 SNOMED Not Available [facility] 3 01:16:23 1835 Brilinta medicatio n rash severe Not available 10/19/2022 46201 36 RxNorm Not Available [facility] 3 01:16:23 1836 allopurin ol medicatio n other severe Not available 10/19/2022 519 RxNorm Not Available [facility] 3 01:16:23 Medications Name Sig Start Date [...] mg by injectio n route. 2023 active ND: 0003-04 94-20 Not Available Not Available Not [...] KwikPen U-100 Insulin 100 unit/mL (3 mL) [facility] active Not Available Not Available Not [...] Updated DateTime 06/21/2024 177.8 cm 37.9 kg/m2 497957.39 tammy Lopez CNA [place] [facility] 06/21/2024 11:11:01 Social History Question Answer Notes LastModified by Organization Details LastModified Time Tobacco Smoking Status Never Smoker Not Available [facility] 10/19/2022 01:04:37 Do You Have An Advance Directive? No MIGRATION.0301 [id number] Information not available 10/19/2022 What Is Your Level Of Alcohol Consumption? None MIGRATION.0301 355527 Information not available 10/19/2022 Are You Blind Or Do You Have Difficulty Seeing? No MIGRATION.0301 808085 Information not available 10/19/2022 Is Blood Transfusion Acceptable In An Emergency? Yes Information not available 12/07/2023 What Is Your Level Of Caffeine Consumption? Occasional MIGRATION.0301 507172 Information not available 10/19/2022 How Much Tobacco Do You Chew? None MIGRATION.0301 587178 Information not available 10/19/2022 What Is Your Code Status? Full Code Information not available 12/07/2023 In The 14 Days Before Symptom Onset, Have You Had Close Contact With A Laboratory-confi rmed COVID-19 While That Case Was Ill? No MIGRATION.0301 765539 Information not available 10/19/2022 In The 14 Days Before Symptom Onset, Have You Had Close Contact With A Person Who Is Under Investigation For COVID-19 While That Person Was Ill? No MIGRATION.0301 720132 Information not available 10/19/2022 Are You Deaf Or Do You Have Serious Difficulty Hearing? No MIGRATION.0301 129156 Information not available 10/19/2022 What Type Of Diet Are You Following? CARDIAC And Renal MIGRATION.0301 167065 Information not available 10/19/2022 Which Illicit Or Recreational Drugs Have You Used? NONE MIGRATION.0301 480819 Information not available 10/19/2022 Do You Or Have You Ever Used E-cigarettes Or Vape? Never Used Electronic Cigarettes MIGRATION.0301 332516 Information not available 10/19/2022 What Is The Highest Grade Or Level Of School You Have Completed Or The Highest Degree You Have Received? BY44273-5 2 Years MIGRATION.0301 377850 Information not available 10/19/2022 What Is Your Occupation? DISABLED MIGRATION.0301 079566 Information not available 10/19/2022 Have There Been Any Changes To Your Family Or Social Situation? No Information not available 12/07/2023 Are There Any Guns Present In Your Home? No MIGRATION.0301 750479 Information not available 10/19/2022 Do You Use Insect Repellent Routinely? No Information not available 12/07/2023 Where Do You Live? SingleLevelHouse Information not available 12/07/2023 Advance Directive- Providers Has Reviewed Directive And Consents To Follow Them (insert Provider Name With Any Objectives In Notes Field) No MIGRATION.030 [id number] Information not available 10/19/2022 Presence Of Domestic [...] Do You Have A Medical Power Of Main Line Assembler? No Information not available 12/07/2023 What Was The Date Of Your Most Recent Tobacco Screening? 12/25/2023 [email or web address] Information not available 12/25/2023 Do You Have Any Pets? Yes Information not available 12/07/2023 What Is Your Relationship Status? Single MIGRATION.0301 870671 Information not available 10/19/2022 Do You Use Your Seat Belt Or Car Seat Routinely? Yes MIGRATION.0301 776750 Information not available 10/19/2022 Do You Have Smoke And Carbon Monoxide Detectors In Your Home? Yes Information not available 12/07/2023 Are You Passively Exposed To Smoke? No Information not available 12/07/2023 Do You Or Have You Ever Used Smokeless Tobacco? Never Used Smokeless Tobacco MIGRATION.0301 477383 Information not available 10/19/2022 Are There Any Smokers In Your House? No Information not available 12/07/2023 Do You Feel Stressed (tense, Restless, Nervous, Or Anxious, Or Unable To Sleep At Night)? [id number] MIGRATION.0301 889913 Information not available 10/19/2022 Do You Use Sunscreen Routinely? No Information not available 12/07/2023 Have You Recently Traveled Abroad? No MIGRATION.0301 426026 Information not available 10/19/2022 Are You Currently In School? No MIGRATION.0301 387792 Information not available 10/19/2022 Sex: Unknown Functional Status Question Answer Note LastModified by Organizat ion Details LastModified Time Do you have difficulty walking or climbing stairs? No MIGRATION.[id number] 26 Information not available 10/19/2022 Do you have difficulty doing errands alone? No MIGRATION.[id number] 26 Information not available 10/19/2022 Do you have difficulty dressing or bathing? No MIGRATION.64599933 26 Information not available 10/19/2022 What is your exercise level? Occasional MIGRATION.[id number] 26 Information not available 10/19/2022 Mental Status Question Answer Note LastModified by Organizat ion Details LastModified Time Do you have difficulty concentrating, remembering or making decisions? No MIGRATION.[id number] 6 Information not available 10/19/2022 Family History Relationship Description Onset Age of this Age Resolved Age Notes LastModified by Organization Details LastModified Time Father Heart disease MIGRATION.757 [id number] Not available 10/19/2022 01:06:25 Father Hypertensive disorder MIGRATION.767 [id number] Not available 10/19/2022 01:06:25 Notes:cancer-mother NO ENT [...] HAVE YOU BEEN HOSPITALIZED OR SEEN IN [facility] IN THE PAST YEAR ? [...] virus, quadrivalent, PF 3 completed BERNARDO Reddy Tejinder MA [facility] 07/03/2023 11:25:39 pneumococcal polysaccharide PPV23 0 completed Not Available [facility] 10/19/2022 01:16:16 Tdap 0 completed Not Available [facility] 10/19/2022 01:16:16 Influenza, split virus, quadrivalent, PF 9 completed Not Available [facility] 10/19/2022 01:16:16 Influenza, split virus, quadrivalent, PF 2 completed Not Available [facility] 10/19/2022 01:16:16 Influenza, split virus, quadrivalent, PF 1 completed Not Available [facility] 10/19/2022 01:16:16 Past Encounters Encounter ID Performer Location Encounter Start Date Encounter Closed Date Diagnosis/Indication Diagnosis SNOMED-CT Code Diagnosis ICD10 Code [id number] Aditya Castro MD [facility] [address] [address] 05/21/2024 15:45:57 05/21/2024 16:21:32 Gout 42567369 M10.9 Vitamin D deficiency 347 63070 E55.9 Uncontroll ed type 2 diabetes mellitus 588181386 E11.65 Hypertriglyceridemia 302 838815 E78.2 Hyperlipidemia 79626982 E78.5 Chronic constipation 236 583122 K59.09 Obesity 202055223 E66.9 Pain of ri ght knee joint 8133075712 09487 M25.561 Chronic back pain 095583 002 G89.29 [id number] LESLY Gambino [facility] [place] [address] [place] [address] 06/21/2024 11:06:53 06/21/2024 11:57:45 Bilateral osteoarthritis of knees 1863060148 36628 M17.0 Pain of ri ght knee joint 3025319794 88450 M25.561 Pain of le ft knee joint [id number] M25.562 Pain in ri ght hip joint [id number] M25.551 Trochanter ic bursitis of right hip [id number] M70.61 Health Concerns Section Related Observation LastModified by Organization Detai ls LastModified Time None Recorded Concern Status LastModified by Organization Details LastModified Time None Recorded Payers Encounter Date Sequence Insurance Name Policy Number Policy Ge Covered Member ID Ge Member ID Guarantor Name 06/21/2024 2 [place] WHEN MEDICARE OR MEDICARE REPLACEMENT PRIMARY) Juvenal Daigle [id number] Juvenal Daigle 06/21/2024 1 [facility] (MEDICARE REPLACEMENT/AD VANTAGE - PPO) [id number] Juvenal Daigle [id number] Juvenal Daigle Notes Date Note Type Note [...] the groin with weight-bearing. LESLY Gambino [address] [facility], [facility] [address], [place], [address], [place] - [facility] 06/21/2024 12:03:04
--- OUTSIDE RECORDS SUMMARY | 2024-08-24 05:39 | XMS_ITS | Continuity of Care Document ---
Author Organization [place] - [facility], [facility] Family Practice [place] Address [address] [place] [address] Care Team Providers Care Manager Fiber Name Role Phone ADITYA CASTRO Primary Care [...] per schedule. Cont f/u with Endo at [facility] as per schedule. Cont f/u with Spine as per schedule. Cont f/u with Rheumat at [facility] as per schedule. Cont f/u with Surg as per schedule. Cont f/u with Cardio at [facility] as per schedule. Cont f/u with Nephro at [facility] as per schedule. Cont f/u with Hemat at [facility] as per schedule. Cont f/u with [employer] as per schedule. Cont f/u with Ophtho at as per schedule. Cont f/u with Derm at [facility] as per schedule. Cont f/u with Dr. Langley (Hand surgeon) at as per schedule. Educated pt about alarming symptoms to monitor at home and call us back or get checked in ED. Pt had acute renal failure and was admitted hospital due to s/e from Allopurinol as per his Lime Mixer. So pt can not take any Allopurinol [...] in 3-4 months. Annual labs in 05/15. [email or web address] Not available 05/21/2024 16:19:00 Plan of Treatment [...] Medication Orders Linzess 72 mcg capsule 2023 [id number], [address] [facility], [place], [place], [id number], 05/21/2024 16:08:05 Uloric 40 mg tablet 2023 024 [facility]50709, [address], [place], [place], [id number], 05/21/2024 16:19:35 Vascepa 1 gram capsule 2023 [facility] #37742, [address], [place], [place], [id number], 05/21/2024 16:08:06 atorvasta tin 80 mg tablet 2023 [facility] #58044, [address], [place], [place], [id number], 05/21/2024 16:08:06 ezetimibe 10 mg tablet 2023 [facility] #62823, [address] [facility], [place], [place], [id number], 05/21/2024 16:08:09 gemfibroz il 600 mg tablet 2023 [facility] #90602, [address] [facility], [place], [place], [id number], 05/21/2024 16:08:08 ergocalci ferol (vitamin D2) 1,250 mcg (50,000 unit) capsule 2023 [facility] #31952, [address] [facility], [place], [place], [id number], 05/21/2024 16:08:05 Patient TargetsNo targets recorded. Patient Instructions Encounter Date Encounter Id Patient Instructions Last Modified By Organization Details Last Modified Time 05/21/2024 [id number] starting a weigh t loss plan: care instructions [email or web address] Not available 05/21/2024 16:20:00 Reason for Referral None Reported. Results Created Date Observation Date Name Description Value Unit Range Abnormal Flag Note LastModifiedBy Organization Detail LastModifiedTime 05/02/20 24 scapu la, right [facility] [address], [place] [address] Patien t Name: JUVENAL GARCIA Access ion #: [id number] Sex: M : 1969 3 Dictat [...] at 2023 12:08: 46 PM Page 1 [email or web address] [facility] (Imaging) [address] [place] [address], [address], 05/07/2024 09:12:00 05/02/20 24 XR, thora cic spine , 3 view [facility] [address] [place] [phone] Patien t Name: JUVENAL GARCIA Access ion #: [id number] Sex: M : 1969 3 Dictat ed By: Vahe Arana Attend ing Physic britton: EVONNE CASTRO Physic britton: EVONNE CASTRO Exam Date: 2023 11:57 AM Exam Name: XR T SPINE 3V Admitt ing Diagno sis(es ): ACCESS ION #: [id number] INDICA TION: pain COMPAR TYLER: None TECHNI QUE:3 views of the thorac ic spine were obtain ed. FINDIN GS: The thorac ic verteb ral alignm ent is normal . The interv ertebr al disc spaces are well-m aintai arnaud. No signif icant facet arthro anrol is noted. Median sterno sarita. No acute fractu re, verteb ral compre ssion deform ity or aggres sive osseou s lesion s. The imaged thorax and abdome n are grossl y unrema rkable . IMPRES MIKA: No acute fractu re. Electr onical ly Signed by: Vahe Arana at 2023 12:35: 42 PM Page [address] (Imaging) [address] [place], [address], 05/07/2024 09:12:00 05/10/20 24 XR, knee No observ ation record ed. [email or web address] [facility] [place] [address] [facility] [address], [place], [address], 05/10/2024 13:41:54 06/21/20 24 XR, hip + pelvi s, unila teral No observ ation record ed. [email or web address] [facility] [address] [facility] [address], [place], [address], 06/21/2024 12:02:31 07/12/20 24 07/12/2024 CT, abdom en + pelvi s, w/o contr ast No observ ation record ed. [address], [place], [address], 07/15/2024 11:27:52 07/16/20 24 07/16/2024 CT, abdom en + pelvi s, w/o contr ast No observ ation record ed. [place] [id number] [facility] [address], [place], [address], 07/17/2024 09:02:10 08/11/20 24 08/11/2024 CT, abdom en + pelvi s, w/o contr ast No observ ation record ed. [facility] [address], [place], [address], 08/12/2024 09:33:09 Result Notes None recorded. 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 079594279 Active 2017 Not Available [facility] 3 01:10:47 Chronic back pain 826513684 Active 2022 Not Available [facility] 3 01:10:47 Hyperchol esterolem ia 43176166 Active 2017 Not Available [facility] 3 01:10:47 Seborrhei c dermatiti s of scalp 002277968 Active 2022 Not Available [facility] 3 01:10:47 Chronic physical disabilit y 772765085 Active 2018 Not Available [facility] 3 01:10:47 History of deep vein thrombosi s 748840647 Active 2017 Not Available [facility] 3 01:10:47 Heartburn 66948635 Active 2017 Not Available [facility] 3 01:10:47 Ultrasoun d scan abnormal 205714054 Active 2020 Not Available [facility] 3 01:10:47 Hypertrop hy of nasal turbinate s 87240230 Active 2021 Not Available [facility] 3 01:10:47 Sensorine ural hearing loss of bilateral ears 554366902 Active 2021 Not Available [facility] 3 01:10:47 Periphera l venous insuffici ency 70337655 Active 2020 Not Available [facility] 3 01:10:47 Myocardia l infarctio n 71567950 Completed 201705/08/2018 Not Available [facility] 3 01:10:48 Stable angina 114904065 Active 2017 Not Available [facility] 3 01:10:48 End stage renal failure on dialysis 706142109 Active 2019 Not Available [facility] 3 01:10:48 Degenerat ion of lumbar intervert ebral disc 21458494 Active 2018 Not Available [facility] 3 01:10:48 Gastroeso phageal reflux disease without esophagit is 649084164 Active 2017 Not Available [facility] 3 01:10:48 Anemia 057284180 Active 2017 Not Available [facility] 3 01:10:48 Chronic low back pain 841849752 Active 2018 Not Available [facility] 3 01:10:48 Pain in toe 279778290 Active 2018 Not Available [facility] 3 01:10:48 Pain in toe 114305175 Active 2018 Not Available [facility] 3 01:10:48 Right upper quadrant pain 652074668 Active 2020 Not Available [facility] 3 01:10:48 Type 2 diabetes mellitus without complicat ion 540720582 Completed 201701/10/2019 Not Available [facility] 3 01:10:48 Pain in left foot 21691382247 9107 Active 2019 Not Available [facility] 3 01:10:48 Vitamin D deficienc y 55412308 Active 2017 Not Available [facility] 3 01:10:49 Seasonal allergic rhinitis 943795193 Active 2017 Not Available [facility] 3 01:10:49 Sinusitis 35313210 Active 2021 Not Available [facility] 3 01:10:49 Hypertens bianca disorder 15763880 Active 2017 Not Available [facility] 3 01:10:49 Osteoarth ritis 722489302 Active 2019 Not Available [facility] 3 01:10:49 Umbilical hernia 560310346 Active 2018 Not Available [facility] 3 01:10:49 Vertigo 776462089 Active 2021 Not Available [facility] 3 01:10:49 Abrasion and/or friction burn of skin 327872429 Active 2018 Not Available [facility] 3 01:10:49 Chronic sinusitis 46730457 Active 2021 Not Available [facility] 3 01:10:49 Multiple benign melanocyt ic nevi 233594481 Active 2017 Not Available [facility] 3 01:10:50 Deep venous thrombosi s of lower extremity 529944999 Active 2022 Not Available [facility] 3 01:10:50 Dizziness 645555579 Active 2017 Not Available [facility] 3 01:10:50 Dysphagia 68244231 Active 2021 Not Available [facility] 3 01:10:50 Obesity 597313537 Active 2017 Not Available [facility] 3 01:10:50 Ketoacido sis due to type 1 diabetes mellitus 469668929 Active 2019 Not Available [facility] 3 01:10:50 Nausea 400169996 Active 2021 Not Available [facility] 3 01:10:50 Congestiv e heart failure 38230360 Active 2017 Not Available [facility] 3 01:10:50 Diabetic periphera l neuropath y 182980909 Active 2017 Not Available [facility] 3 01:10:51 Asymmetri nikos hearing loss 773657287 Active 2021 Not Available [facility] 3 01:10:51 Chronic kidney disease stage 4 618021747 Completed 201707/29/2020 Not Available [facility] 01:10:51 Chronic kidney disease stage 5 624202311 Active 2019 Not Available [facility] 3 01:10:51 Uncontrol led type 2 diabetes mellitus 017273728 Completed 201705/16/2019 Aditya Castro MD [address] [place] [address], [facility] [address], [place], [address] , [facility] 4 09:03:03 Gastritis 2294916 Active 2021 Not Available [facility] 3 01:10:51 End-stage renal disease 35214056 Active 2019 Not Available [facility] 3 01:10:51 Type 1 diabetes mellitus 86101572 Active 2018 Not Available [facility] 3 01:10:52 Atrial fibrillat ion 62210830 Active 2017 Not Available [facility] 3 01:10:52 Hyperlipi demia 41460583 Active 2017 Not Available [facility] 3 01:10:52 Heart disease 22895813 Active 2017 Not Available [facility] 3 01:10:52 Hyperpara thyroidis m 63314038 Active 2018 Not Available [facility] 3 01:10:52 Nasal congestio n 06644320 Active 2021 Not Available [facility] 3 01:10:52 Diabetes mellitus 63415543 Active 2017 Not Available [facility] 3 01:10:52 Obstructi ve sleep apnea syndrome 63577869 Active 2018 Not Available [facility] 3 01:10:53 Epigastri c pain 51884864 Active 2021 Not Available [facility] 3 01:10:53 Chronic idiopathi c constipat ion 02378687 Active 2020 Not Available [facility] 3 01:10:53 Corneal abrasion 91067603 Active 2018 Not Available [facility] 3 01:10:53 Dystrophi a unguium 57129583 Active 2018 Not Available [facility] 3 01:10:53 Gout 86384045 Active 2017 Not Available [facility] 3 01:10:53 Chronic renal failure 89695332 Completed 201705/08/2018 Not Available [facility] 3 01:10:54 Skin lesion 09530516 Active 2017 Not Available [facility] 3 01:10:54 Hypertrig lyceridem ia 704338598 Active 2022 Aditya Castro MD [address], [address], [place], [address] , [employer] [facility] 3 16:04:08 Chronic constipat ion 483693934 Active 2022 Aditya Castro MD [address], [address], [place], [address] , [employer] [facility] 3 16:45:46 Cough 42185826 Active 2022 Aditya Castro MD [address], [address], [place], [address] , [employer] [facility] 3 12:45:44 Bronchiti s 53654125 Active 2022 Aditya Castro MD [address], [address], [place], [address] , [employer] [facility] 3 09:22:50 Allergic rhinitis 24467388 Active 2022 Aditya Castro MD [address], [address], [place], [address] , [employer] [facility] 3 09:28:39 Allergic contact dermatiti s 560925224 Active 2022 Aditya Castro MD [address], [address], [place], [address] , [place] [facility] 3 16:06:02 Tinea cruris 781371089 Active 2022 Aditya Castro MD [address], [address], [place], [address] , [place] [facility] 3 16:06:15 Acute bacterial sinusitis 51727873 Active 2023 KATIE Chen [address], [address], [place], [address] , [place] [facility] 4 09:55:25 Ulcer of mouth 84462668 Active 2023 Aditya Castro MD [address], [address], [place], [address] , [place] [facility] 4 09:03:52 Onychomyc osis of toenails 338766175 Active 2023 Chris Linda DPM [address], [address], [place], [address] , [place] [facility] 4 12:24:55 Folliculi tis 33631454 Active 2023 Aditya Castro MD [address], [place] [address], [place], [address] , [place] [facility] 4 10:26:36 Pain of right knee joint 78141236671 4100 Active 2023 Aditya Castro MD [address], [address], [place], [address] , [place] [facility] 4 10:31:07 Bleeding of ear canal 060271119 Active 2023 Aditya Castro MD [address], [place], [address] , [place] [facility] 4 10:40:38 Acute left otitis media 096883648 Active 2023 Rohit Jessica MD [address], [place], [address] , [facility] 4 16:04:39 Thoracic back pain 787938230 Active 2023 Aditya Castro MD [address], [address], [place], [address] , [facility] 4 16:28:59 Pain of right shoulder blade 297942884 Active 2023 Aditya Castro MD [address], [place], [address] , [employer] [facility] 4 16:30:04 Degenerat ion of thoracolu mbar intervert ebral disc 01281904 Active 2023 Aditya Castro MD [address], [address], [place], [address] , [employer] [facility] 4 16:30:54 Hypothyro idism 94664957 Active 2023 Aditya Castro MD [address], [place], [address] , [employer] [facility] 4 16:34:29 Uncontrol led type 2 diabetes mellitus 866303373 Active 2023 Aditya Castro MD [address], [address], [place], [address] , [employer] [facility] 4 09:03:03 Bilateral osteoarth ritis of knees 93178521478 9107 Active 2023 Sofia Newby null, [place] [facility] 4 11:42:16 Pain of left knee joint 85263826607 4107 Active 2023 LESLY Gambino [address], [place], [address] , [facility] 4 13:42:14 Pain in right hip joint 67691083986 9102 Active 2023 KELLE John, [facility] [employer] 4 11:11:43 Trochante margarita bursitis of right hip 44304206835 9100 Active 2023 LESLY Gambino [address], [place], [address] , [facility] [employer] [facility] [employer] 4 12:00:40 Gallstone 820172689 Active 2023 Aditya Castro MD [address], [place], [address] , [employer] [facility] [employer] 4 11:21:33 Right flank pain 182859000 Active 2023 Aditya Castro MD [address], [place], [address] , [employer] [facility] [employer] 4 11:29:38 Kidney stone 24807956 Active 2023 Aditya Castro MD [address], [place], [address] , [employer] [facility] [employer] 4 11:31:01 Notes:blood clots, coronary artery disease, head trauma or injury, kidney disease, seizures, use of blood thinners, balance problems, numbness or tingling, loss of memory, swelling in legs, shortness of breath, muscle pain, back/neck pain, swollen or painful joints, excessive thirst, dry mouth, sleep apnea, wears glasses Some problems listed in Document: #[id number] could not be added to this patient's chart. Please review this document and add these problems to the patient's chart manually as needed. Problem Notes None recorded. Procedures Surgical History Date Name Laterality Status Provider Name and Address Organization Details Recorded Time 05/02/20 24 Nail Debridement completed Chris Linda DPM [address], [place], [address], [facility] [employer] [facility] [employer] 05/20/2024 09:31:13 03/11/20 24 Nail Debridement completed Chris Linda DPM [address], [place], [address], [facility] [employer] [facility] [employer] 03/11/2024 12:35:50 03/11/20 24 Wound Care-Podiatry completed Chris Linda DPM [address], [place], [address], [facility] [employer] [facility] 03/11/2024 12:34:57 01/08/20 24 Wound Care-Podiatry completed Chris Linda DPM [address], [place], [address], [facility] [employer] [facility] 01/08/2024 12:26:31 12/25/19 24 Medicare Wellness CPT Code, subsequent completed November LUAN Willis [facility] [employer] [facility] 12/25/2023 15:24:37 11/06/19 24 Medicare Wellness CPT Code, subsequent cancelled November LUAN Willis [facility] [employer] [facility] 11/03/2023 10:10:00 01/08/20 22 SEPTOPLASTY (SURG) completed Not Available [facility] 10/19/2022 01:16:48 01/22/20 21 Cardiac Cath completed Not Available [facility] 023 01:06:21 reduction of nasal turbinate completed Not Available [facility] 10/19/2022 01:06:21 procedure on heart completed Lisa Lopez CNA [facility] [employer] [facility] 05/10/2024 11:11:45 Imaging Results None recorded. Procedure Notes None recorded. Medical Equipment None Reported. Allergies Allergen ID Allergen Name Allergen Category Reaction Reaction Severity Criticality Documentation Date Start Date Code Code System Note Provider Name and Address Organization Details Recorded Time 1834 Iodinated contrast media (substanc e) medicatio n rash severe Not available 10/19/2022 65601 2004 SNOMED Not Available [facility] 3 01:16:23 1835 Brilinta medicatio n rash severe Not available 10/19/2022 98431 36 RxNorm Not Available [facility] 3 01:16:23 1836 allopurin ol medicatio n other severe Not available 10/19/2022 519 RxNorm Not Available [facility] 3 01:16:23 Medications Name Sig Start [...] mg by injectio n route. [address] [facility]: [phone] Not Available Not Available [...] U-100 Insulin aspart 100 unit/mL (3 mL) [facility] 10/11 completed Not Available Not Available Not [...] U-100 Insulin KwikPen 100 unit/mL (3 mL) [facility] active Not Available Not Available [...] KwikPen U-100 Insulin 100 unit/mL (3 mL) [facility] active Not Available Not Available Not Available [...] Last Updated DateTime 177.8 cm 38 kg/m2 417727. 98 g 98.4 [degF] 70 /min 99 % 99 % 148 mm[Hg] 80 mm[Hg] [place] [employer] [facility] [employer] 15:51:21 Date Recorded Respiratory rate Provider Name a nd Address Organization Details Last Updated DateTime 05/21/2024 20 /min Lisa Gonzáles [address] [place] [address], [address], [employer] [facility] [employer] 05/21/2024 16:17:14 Social History Question Answer Notes LastModified by Organization Details LastModified Time Tobacco Smoking Status Never Smoker Not Available [facility] 10/19/2022 01:04:37 Do You Have An Advance Directive? No MIGRATION.0301 [id number] Information not available 10/19/2022 What Is Your Level Of Alcohol Consumption? None MIGRATION.0301 [id number] Information not available 10/19/2022 Are You Blind Or Do You Have Difficulty Seeing? No MIGRATION.0301 [id number] Information not available 10/19/2022 Is Blood Transfusion Acceptable In An Emergency? Yes Information not available 12/07/2023 What Is Your Level Of Caffeine Consumption? Occasional MIGRATION.0301 [id number] Information not available 10/19/2022 How Much Tobacco Do You Chew? None MIGRATION.0301 510271 Information not available 10/19/2022 What Is Your Code Status? Full Code Information not available 12/07/2023 In The 14 Days Before Symptom Onset, Have You Had Close Contact With A Laboratory-confi rmed COVID-19 While That Case Was Ill? No MIGRATION.0301 [id number] Information not available 10/19/2022 In The 14 Days Before Symptom Onset, Have You Had Close Contact With A Person Who Is Under Investigation For COVID-19 While That Person Was Ill? No MIGRATION.0301 938807 Information not available 10/19/2022 Are You Deaf Or Do You Have Serious Difficulty Hearing? No MIGRATION.0301 [id number] Information not available 10/19/2022 What Type Of Diet Are You Following? CARDIAC And Renal MIGRATION.0301 [id number] Information not available 10/19/2022 Which Illicit Or Recreational Drugs Have You Used? NONE MIGRATION.0301 [id number] Information not available 10/19/2022 Do You Or Have You Ever Used E-cigarettes Or Vape? Never Used Electronic Cigarettes MIGRATION.0301 336305 Information not available 10/19/2022 What Is The Highest Grade Or Level Of School You Have Completed Or The Highest Degree You Have Received? [id number] 2 Years MIGRATION.0301 002546 Information not available 10/19/2022 What Is Your Occupation? DISABLED MIGRATION.0301 817624 Information not available 10/19/2022 Have There Been Any Changes To Your Family Or Social Situation? No Information not available 12/07/2023 Are There Any Guns Present In Your Home? No MIGRATION.0301 [id number] Information not available 10/19/2022 Do You Use Insect Repellent Routinely? No Information not available 12/07/2023 Where Do You Live? SingleLevelHouse Information not available 12/07/2023 Advance Directive- Providers Has Reviewed Directive And Consents To Follow Them (insert Provider Name With Any Objectives In Notes Field) No MIGRATION.0301 [id number] Information not available 10/19/2022 Presence Of Domestic [...] Do You Have A Medical Power Of Deburrer? No Information not available 12/07/2023 What Was The Date Of Your Most Recent Tobacco Screening? 12/25/2023 [email or web address] Information not available 12/25/2023 Do You Have Any Pets? Yes Information not available 12/07/2023 What Is Your Relationship Status? Single MIGRATION.0301 [id number] Information not available 10/19/2022 Do You Use Your Seat Belt Or Car Seat Routinely? Yes MIGRATION.0301 446190 Information not available 10/19/2022 Do You Have Smoke And Carbon Monoxide Detectors In Your Home? Yes Information not available 12/07/2023 Are You Passively Exposed To Smoke? No Information not available 12/07/2023 Do You Or Have You Ever Used Smokeless Tobacco? Never Used Smokeless Tobacco MIGRATION.0301 [id number] Information not available 10/19/2022 Are There Any Smokers In Your House? No Information not available 12/07/2023 Do You Feel Stressed (tense, Restless, Nervous, Or Anxious, Or Unable To Sleep At Night)? [id number] MIGRATION.0301 852249 Information not available 10/19/2022 Do You Use Sunscreen Routinely? No Information not available 12/07/2023 Have You Recently Traveled Abroad? No MIGRATION.0301 092532 Information not available 10/19/2022 Are You Currently In School? No MIGRATION.0301 [id number] Information not available 10/19/2022 Sex: Unknown Functional Status Question Answer Note LastModified by Organizat ion Details LastModified Time Do you have difficulty walking or climbing stairs? No [id number] Information not available 10/19/2022 Do you have difficulty doing errands alone? No [id number].[id number] 26 Information not available 10/19/2022 Do you have difficulty dressing or bathing? No [id number].[id number] 26 Information not available 10/19/2022 What is your exercise level? Occasional [id number] Information not available 10/19/2022 Mental Status Question Answer Note LastModified by Organizat ion Details LastModified Time Do you have difficulty concentrating, remembering or making decisions? No [id number].[id number] Information not available 10/19/2022 Family History Relationship Description Onset Age of this Age Resolved Age Notes LastModified by Organization Details LastModified Time Father Heart disease [id number] Not available 10/19/2022 01:06:25 Father Hypertensive disorder [id number] Not available 10/19/2022 01:06:25 Notes:cancer-mother NO ENT H ISTORY Medical History Condition Response MRSA N LUNG DISEASE/DISORDER N HISTORY OF DRUG ABUSE N COPD N RADIATION / CHEMOTHERAPY N BLOOD DISEASES N EAR OR HEARING PROBLEMS N SHINGLES N DEPRESSION (INCLUDING POST ) N STROKE/TIA N ULCERS N OBESITY Y GERD/NAUSEA Y ANEURYSM N Do you have Advance directive? N USE OF BLOOD THINNERS Y SKIN PROBLEMS Y PARATHYROID DISEASE N BLOOD CLOTS Y GI PROBLEMS Y CHF N AIDS/HIV N FRACTURES N HYPERTENSION Y TOURETTE'S N BLOOD TRANSFUSION N ANEMIA/BLOOD DISORDER Y CHRONIC EAR INFECTIONS N TUBERCULOSIS N SLEEP APNEA N ALLERGIES/HAYFEVER N HEART ARRHYTHMIA Y INSOMNIA N HIGH CHOLESTEROL / HYPERLIPIDEMIA Y HYPERTHYROIDISM N HYPOTHYROIDISM N HAVE YOU BEEN HOSPITALIZED OR SEEN IN [facility] IN THE PAST YEAR ? N HISTORY WITH COMPLICATIONS WITH ANESTHES IA ? N ARTHRITIS Y NO SIGNIFICANT PAST MEDICAL HISTORY Y DIABETES, TYPE Y ENT N SEASONAL ALLERGIES N HEARTBURN / REFLUX N HEPATITIS / LIVER DISEASE N SLEEP DISORDER N PAIN Y SEIZURES/EPILEPSY N HEADACHES/MIGRAINES N PACEMAKER N DIZZINESS N HEART DISEASE/HEART PROBLEMS Y CANCER: SPECIFY N ANESTHESIA COMPLICATIONS N AUTOIMMUNE DISEASE N Immunizations Vaccine Type Date Status Note Provider Nam e and Address Organization Details Recorded Time Influenza, split virus, quadrivalent, PF 3 completed BERNARDO Reddy [place] [facility] 07/03/2023 11:25:39 pneumococcal polysaccharide PPV23 0 completed Not Available [facility] 10/19/2022 01:16:16 Tdap 0 completed Not Available [facility] 10/19/2022 01:16:16 Influenza, split virus, quadrivalent, PF 9 completed Not Available [facility] 10/19/2022 01:16:16 Influenza, split virus, quadrivalent, PF 2 completed Not Available [facility] 10/19/2022 01:16:16 Influenza, split virus, quadrivalent, PF 1 completed Not Available [facility] 10/19/2022 01:16:16 Past Encounters Encounter ID Performer Location Encounter Start Date Encounter Closed Date Diagnosis/Indication Diagnosis SNOMED-CT Code Diagnosis ICD10 Code [id number] Chris Linda DPM [facility] [address] [place] [address] 05/02/2024 10:29:22 05/20/2024 11:32:52 Onychomycosis of toenails 402960508 B35.1 Peripheral venous insufficiency 20999017 I87.2 Dystrophia unguium 33335 009 L60.3 Abrasion a nd/or friction burn of skin 693112449 T14.8XXA Diabetic p eripheral neuropathy 409546740 E11.40 [id number] Aditya Castro MD [facility] [address] 05/07/2024 09:01:36 05/07/2024 09:40:15 Gout 68887088 M10.9 Vitamin D deficiency 347 24427 E55.9 Hyperparathyroidism 6699 9008 E21.3 Uncontroll ed type 2 diabetes mellitus 382449949 E11.65 Hypertriglyceridemia 302 087950 E78.2 Hyperlipidemia 60859469 E78.5 Chronic constipation 236 161689 K59.09 Obesity 133171571 E66.9 Pain of ri ght knee joint 5545443879 74478 M25.561 Screening for malignant neoplasm of prostate 043891338 Z12.5 Chronic back pain 171088 002 G89.29 Screening colonoscopy 44 6140218 Z12.11 [id number] ELSLY Gambino [facility] [address] [place] [address] 05/10/2024 10:46:13 05/10/2024 11:48:23 Pain of right knee joint 8055051521 56238 M25.561 Bilateral osteoarthritis of knees 2970089501 34670 M17.0 Pain of le ft knee joint 6600791609 39218 M25.943 [id number] Aditya Castro MD [facility] [address] [address] 05/21/2024 15:45:57 05/21/2024 16:21:32 Gout 36652947 M10.9 Vitamin D deficiency 347 38372 E55.9 Uncontroll ed type 2 diabetes mellitus 904004621 E11.65 Hypertriglyceridemia 302 345087 E78.2 Hyperlipidemia 59023350 E78.5 Chronic constipation 236 488441 K59.09 Obesity 308783661 E66.9 Pain of ri ght knee joint 6102388116 86633 M25.561 Chronic back pain 111129 002 G89.29 Health Concerns Section Related Observation LastModified by Organization Detai ls LastModified Time None Recorded Concern Status LastModified by Organization Details LastModified Time None Recorded Payers Encounter Date Sequence Insurance Name Policy Number Policy Ge Covered Member ID Ge Member ID Guarantor Name 05/21/2024 2 [place] WHEN MEDICARE OR MEDICARE REPLACEMENT PRIMARY) Juvenal Daigle [id number] Juvenal Daigle 05/21/2024 1 [facility] (MEDICARE REPLACEMENT/AD VANTAGE - PPO) [id number] Juvenal Daigle [id number] Juvenal Daigle Notes Date Note Type Note [...] Pt is also f/u with Nephro at [place] for kidney transplant team.Pt is f/u with Endo for his DM and hyperparathyroidis m.Pt has seen Derm at [facility] for his multiple moles and no concerns [...] he has not worked. Aditya Castro MD [address] [place] [address], [facility], [place], [address], [place] - [facility] 05/21/2024 16:20:25
--- OUTSIDE RECORDS SUMMARY | 2024-08-24 05:39 | XMS_ITS | Data Portability ---
Author Organization [facility] IP Address [address] [place] [address] Care Team Providers Care Nurse'S Companion Name Role Phone STEPHANIE CORREA Primary Care [...] By Organization Details Last Modified Time 07/25/2018 [id number] use OTC lubrican t eyedrops 3 times a day in both eyes. [email or web address] Not available 07/25/2018 17:27:28 Keep follow-up appointments in 2 months as scheduled. [email or web address] Not available 07/25/2018 17:27:45 12/05/2018 [id number] diabetic retinopathy: care instructions msafi Not available 12/05/2018 20:02:55 type 2 diabetes: [facility] 12/05/2018 20:02:55 Reason for Referral None Reported. Problems Name Problem SNOMED Code Status Onset Date Resolution Date Notes Provider Name and Address Organization Details Recorded Time Diabetes mellitus 07447465 Active 2017 Wandy agosto [facility] 8 12:14:02 Hypercholestero lemia 31931837 Active 2017 Wandy agosto [place] [facility] 8 12:14:14 Problem Notes None recorded. Procedures Surgical History Date Name Laterality Status Provider Name and Address Organization Details Recorded Time 9 placement of stent in coronary artery completed Wandy Rapp [place] [facility] 12/05/2018 10:00:35 7 placement of stent in coronary artery completed Wandy Rapp [facility] 12/05/2018 09:59:38 7 Cataract Surgery completed Wandy Rapp [facility] 12/05/2018 10:00:20 Imaging Results None recorded. Procedure Notes None recorded. Medical Equipment None Reported. Allergies Allergen ID Allergen Name Allergen Category Reaction Reaction Severity Criticality Documentation Date Start Date Code Code System Note Provider Name and Address Organization Details Recorded Time 345585 Brilinta medicatio n Not available Not available Not available 07/04/2018 96647 36 [facility] 12:13[facility]16 507926 Iodinated contrast media (substanc e) medicatio n Not available Not available Not available 07/04/2018 89456 2004 [facility] 12:13:31 Medications Name Sig Start Date [...] 8 180.34 cm 64 /min 37 kg/m2 508207. 98 g 161 mm[Hg] 66 mm[Hg] Wandy Dionte [facility] 8 12:12:14 Date Recorded Body height Heart rate Body mass index (BMI) Body weight Systolic blood pressure Diastolic blood pressure Provider Name and Address Organization Details Last Updated DateTime 8 180.34 cm 63 /min 36.9 kg/m2 887256. 46 g 148 mm[Hg] 67 mm[Hg] Bernice Connelly RN [facility] 8 15:12:11 Date Recorded Body height Body mass index (BMI) Body weight Heart rate Systolic blood pressure Diastolic blood pressure Provider Name and Address Organization Details Last Updated DateTime 9 180.34 cm 37.8 kg/m2 405585. 53 g 62 /min 133 mm[Hg] 64 mm[Hg] Wandy Rapp [facility] 9 09:58:22 Social History Question Answer Notes LastModified by Organizat ion Details LastModified Time Tobacco Smoking Status Never Smoker Wandy Rapp [facility] 12/05/2018 09:58:54 What Was The Date Of Your Most Recent Tobacco Screening? 12/05/2018 Information not available 03/14/2019 Has Tobacco Cessation Counseling Been Provided? [facility] Information not available 12/05/2018 Sex: Unknown Functional Status None recorded. Mental Status None recorded. Family History Relationship Description Onset Age of this Age Resolved Age Notes LastModified by Organization Details LastModified Time Father Myocardial infarction areaka Not available 12/05 10:02:48 Medical History Condition Response Coronary Artery Disease Y High Cholesterol Y Diabetes Y Sleep Apnea Y Heart Disease Y Hypertension Y Past Encounters Encounter ID Performer Location Encounter Start Date Encounter Closed Date Diagnosis/Indication Diagnosis SNOMED-CT Code Diagnosis ICD10 Code Diagnosis Note [id number] Evy Olson MD [facility] [address] [address] 07/04/2018 11:51:22 07/05/2018 16:47:49 After-cataract with vision obscured following extraction of cataract 049249787 H26.492 Proliferat bianca retinopathy due to type 1 diabetes mellitus 8218778753 9101 E10.3593 [id number] Evy Olson MD [facility] [address] [place] [address] 07/25/2018 14:26:14 07/30/2018 10:38:59 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 1681833712 00471 E11.3299 Tear film insufficiency 96831786 H04.779 [id number] Evy Olson MD [facility] [address] [place] [address] 12/05/2018 09:46:14 12/06/2018 13:28:35 Nonproliferative retinopathy due to diabetes mellitus 481850710 E11.3293 After-juan ract with vision obscured following extraction of cataract 696695587 H26.492 Health Concerns Section Related Observation LastModified by Organization Detai ls LastModified Time None Recorded Concern Status LastModified by Organization Details LastModified Time None Recorded Advance Directives Directive None Recorded Payers Encounter Date Sequence Insurance Name Policy Number Policy Ge Covered Member ID Ge Member ID Guarantor Name 07/04/2018 1 [facility] (MEDICAID HMO) [id number] Juvenal Newcombe [id number] Juvenal Newcombe 07/25/2018 1 [facility] (MEDICAID HMO) [id number] Juvenal Newcombe [id number] Juvenal Newcombe 12/05/2018 1 [facility] (MEDICAID HMO) [id number] Juvenal Newcombe [id number] Juvenal Newcombe Notes Date Note Type Note Provider Name and Address Organization Details Recorded Time 07/04/2018 text/html C/O bleeding in left eye seen by supervisor heading H/O cat. Sx OU. 2016 and 2018. No prolbem in post op exam Evy Olson MD [address] [place], [address], [facility] 07/05/2018 10:07:17 07/25/2018 text/html complaint of red spot in the right eye since 3 days, no pain no discharge no previous injury.History of diabetic retinopathy in both eyes MD [place], [address], [facility] 07/25/2018 17:28:04 12/05/2018 text/html F/U DRP. c/o decreased vision in left eye Evy Olson MD [address] [place], [address], [facility] 12/05/2018 20:02:58
== END 2024-08-19 14:03 | disposition home or self-care (01) | DRG 696 ==
LOC: ANHED 08-17 11:14 → ANHIMU 08-17 13:15
PROVIDERS: Emergency Medicine; Internal Medicine Nephrology; Nurse Practitioner Gerontology; Physician Assistant; Admitting Provider Internal Medicine; Emergency Provider Emergency Medicine; PCP Family Medicine; Visit Provider Nurse Practitioner Adult Health
DX: R31.9 Hematuria, unspecified (principal); D68.32 Hemorrhagic disorder due to extrinsic circulating anticoagulants; I13.2 Hypertensive heart and chronic kidney disease with heart failure and with stage 5 chronic kidney disease, or end stage renal disease; I82.531 Chronic embolism and thrombosis of right popliteal vein; I24.9 Acute ischemic heart disease, unspecified; N18.6 End stage renal disease; Z99.2 Dependence on renal dialysis; N25.81 Secondary hyperparathyroidism of renal origin; T45.515A Adverse effect of anticoagulants, initial encounter; L03.011 Cellulitis of right finger; I50.9 Heart failure, unspecified; I48.0 Paroxysmal atrial fibrillation; I25.10 Atherosclerotic heart disease of native coronary artery without angina pectoris; I35.0 Nonrheumatic aortic (valve) stenosis; N25.0 Renal osteodystrophy; D63.8 Anemia in other chronic diseases classified elsewhere; E10.22 Type 1 diabetes mellitus with diabetic chronic kidney disease; E10.319 Type 1 diabetes mellitus with unspecified diabetic retinopathy without macular edema; E10.42 Type 1 diabetes mellitus with diabetic polyneuropathy; E78.5 Hyperlipidemia, unspecified; E87.5 Hyperkalemia; E10.65 Type 1 diabetes mellitus with hyperglycemia; K21.9 Gastro-esophageal reflux disease without esophagitis; Z20.822 Contact with and (suspected) exposure to COVID-19; M10.9 Gout, unspecified; M19.90 Unspecified osteoarthritis, unspecified site; M54.9 Dorsalgia, unspecified; G89.29 Other chronic pain; G47.33 Obstructive sleep apnea (adult) (pediatric); F41.9 Anxiety disorder, unspecified; Z96.41 Presence of insulin pump (external) (internal); Z79.01 Long term (current) use of anticoagulants; Z79.4 Long term (current) use of insulin; Z95.1 Presence of aortocoronary bypass graft; Z95.5 Presence of coronary angioplasty implant and graft
CPT/HCPCS: 36415; 71045; 71046; 71250; 74176; 80053; 81001; 82948; 83690; 83735; 83880; 84100; 84484; 85025; 85610; 85730; 87040; 87086; 87637; 87641; 90945; 93005; 96361; 96365; 96367; 99285; A9270; J0696; J2003; J3250; J7030

== ENCOUNTER 2024-08-31 11:50 | Inpatient (IN) | payer MEDICARE, MEDICAID, SELFPAY ==
[2024-08-31] VITALS (11 sets, daily range): BP systolic 94–146; BP diastolic 31–93; PULSE 92–109; RESP 16–20; TEMP 36.3–36.6; O2SAT 90–100; BMI 37.9
--- NOTE | ~2024-08-31 | XR_ITS ---
XR chest 1V portable DATE: 08/31/2024 12:48 INDICATION: Shortness of breath TECHNIQUE: Portable AP chest on 08/31/2024 at 1243 hours COMPARISON: 08/18/2024 PA and lateral chest 2023 CT chest abdomen FINDINGS: Status post sternotomy. Cardiomegaly. There is patchy infiltrate and/or atelectasis in the left mid and particularly lower lung field. Righ t lung appears clear. Left gastric angle is blunted suggesting mild left pleural effusion. No right pleural effusion. No pulmonary vascular congestion or pneumothorax. Osteopenia. Degenerative spurring of the thoracic spine. IMPRESSION: Patchy left mid and particularly lower lung infiltrate and/or atelectasis, increased sinc e 08/18/2024 Small left pleural effusion Reviewed, dictated and finalized at location A. SOAKER IMPRESSION: Patchy left mid and particularly lower lung infiltrate and/or atele ctasis, increased since 08/18/2024 Small left pleural effusion
--- NOTE | ~2024-08-31 | XR_ITS ---
EXAMINATION: XR chest 1V portable Exam Date/Time: 09/08/2024 17:22 CARE PROFESSIONAL HISTORY: r.o pneumo Comparison: 08/31/2024. RESULT: Lines, tubes, and devices: Intact sternotomy wires and fixation plates. Lungs and pleura: Volume loss in the left hemithorax with subsegmental and linear basilar opacities. Minor fissure fluid/thickening. Mild left costophrenic angle blunting. Mild diffuse reticular opacit ies. No pneumothorax. Cardiomediastinal silhouette: Stable. Other: No acute osseous or upper abdominal finding. IMPRESSION: Mild interstitial edema. Subsegmental left basilar atelectasis/consolidation. Small left pleural effu laurent. Reviewed, dictated and finalized at location K. PROFESSIONAL IMPRESSION: Mild interstitial edema. Subsegmental left basilar atelectasis/consolidation. S mall left pleural effusion.
--- NOTE | ~2024-08-31 | US_ITS ---
US abdomen limited DATE: 09/01/2024 08:46 INDICATION: Abdominal pain TECHNIQUE: Real-time imaging of the liver, pancreas, gallbladder areas COMPARISON: 08/17/2024 CT chest abdomen FINDINGS: Multiple gallstones are noted at the neck of the gallbladder. Gallbladder wall measures approximately 1.9 mm thick, within upper normal range. No pericholecystic fluid collection. The common bile duct measures 4.3 mm, normal. No hepatic space-occupying mass lesion is detected. The pancreas appears unremarkable. No pancreatic duct dilatation. IMPRESSION: Cholelithiasis Reviewed, dictated and finalized at Location A. Reviewed, dictated and finalized at location A. TECHNOLOGIST IMPRESSION: Cholelithiasis
[2024-08-31 12:14] LABS: Glucose Point of Care > 500 mg/dl (65-105)
[2024-08-31 12:36] LABS: Fractional Inspired Oxygen 21 %; HCO3 VBG 10.5 mEq/l (24.0-30.0); PO2 VBG 40.5 mmHg (35.0-45.0)
[2024-08-31 12:37] LABS: Basophils Percent Auto 0.2 % (0.2-1.2); Eosinophils Percent Auto 0.3 % (0-4.4); Hematocrit 34.9 % (42.0-52.0); Hemoglobin 10.8 g/dL (14.0-18.0); Immature Granulocyte Absolute 0.05 K/mm3 (0.00-0.031); Immature Granulocyte Percent A 0.8 % (0-0.5); Lymphocytes Absolute Auto 0.55 K/mm3 (0.9-3.2); Lymphocytes Percent Auto 8.5 % (18.3-44.2); Mean Corpuscular HGB Conc 30.9 g/dl (32-36); Mean Corpuscular Hemoglobin 31.5 pg (26-34); Mean Corpuscular Volume 101.7 fl (80-100); Mean Platelet Volume 10.7 fl (7.4-10.4); Monocytes Absolute Auto 0.7 K/mm3 (0.1-0.6); Monocytes Percent Auto 11.2 % (2.6-8.5); Neutrophils Absolute Auto 5.1 K/mm3 (1.3-6.7); Platelet Count Result 197 k/mm3 (150-375); Red Blood Count 3.43 M/mm3 (4.6-6.20); White Blood Count 6.5 K/mm3 (4.5-10.0)
[2024-08-31 12:40] LABS: Device ROOM AIR; PCO2 VBG 26.8 mmHg (42.0-48.0); pH VBG 7.212 (7.300-7.400)
[2024-08-31 12:54] LABS: INR 1.6; Prothrombin Time 19.3 Seconds (11.1-14.7)
[2024-08-31 12:55] LABS: Partial Thromboplastin Time 35.5 Seconds (22.3-36.8)
[2024-08-31 12:59] LABS: Lactic Acid Reflex 4.1 mmol/L (0.7-2.0); NT Pro B Type Natriuretic Pept 23400 pg/mL (19.9-100)
[2024-08-31 13:00] LABS: Alanine Aminotransferase 33 U/L (6-50); Albumin Level 3.6 g/dL (3.5-5.1); Alkaline Phosphatase 91 U/L (38-126); Anion Gap 31 mmol/L (4-12); Aspartate Amino Transferase 31 U/L (17-59); Bilirubin,Total 0.8 mg/dL (0.2-1.3); Blood Urea Nitrogen 77 mg/dL (9-20); Calcium 8.5 mg/dL (8.4-10.2); Carbon Dioxide 8 mmol/L (22-30); Chloride 85 mmol/L (98-107); Estimated CRCL calculation 11 ml/min; Estimated Glomerular Filt Rate 6; Glucose 923 mg/dL (65-110); Potassium 5.5 mmol/L (3.4-5.0); Sodium 124 mmol/L (137-145)
--- NOTE | 2024-08-31 13:03 | ED_ITS ---
HPI - General Adult General Chief complaint: Shortness of Breath/Dyspnea Stated complaint: ELEVATED BLOOD SUGAR HX DKA,CHF Time Seen by Provider: 08/31/24 12:22 History of Present Illness HPI narrative: Patient is a 54-year-old male who presents ER with concerns for DKA. Reports he has had cough over last couple days. While doing dialysis at night his blood sugar has been running in the 200s and 300s. Today he is unable to get a level. He has an insulin pump. No chest pain or chest pressure. He is feeling nauseated. Related Data Home Medications ?Medication ?Instructions ?Recorded ?Confirmed ?Last Taken ?Type calcitriol 0.25 mcg capsule 0.25 mcg PO QAM 06/04/19 08/31/24 07/29/24 History ergocalciferol (vitamin D2) 1,250 50,000 unit PO WEEKLY 06/04/19 08/31/24 07/29/24 History mcg (50,000 unit) capsule (Vitamin D2) nitroglycerin 0.4 mg sublingual 0.4 mg sublingual Q5-15M PRN Chest 06/04/19 08/31/24 05/19/23 16:30 History tablet Pain ezetimibe 10 mg tablet (Zetia) 10 mg PO DAILY 09/09/19 08/31/24 07/29/24 History cetirizine 10 mg tablet (All Day 10 mg PO DAILY 12/26/19 08/31/24 07/29/24 History Allergy (cetirizine)) atorvastatin 80 mg tablet 80 mg PO DAILY 11/26/20 08/31/24 07/29/24 History potassium chloride 20 mEq 20 meq PO DAILY Cramps 05/20/23 08/31/24 05/19/23 10:00 History tablet,extended release febuxostat 40 mg tablet 40 mg PO QPM 07/25/23 08/31/24 07/28/24 History gemfibrozil 600 mg tablet 600 mg PO Q12H 07/25/23 08/31/24 07/29/24 History linaclotide 72 mcg capsule 72 mcg PO DAILY PRN Diarrhea 07/25/23 08/31/24 Unknown History (Linzess) icosapent ethyl 1 gram capsule 1 g PO QID 02/16/24 08/31/24 07/29/24 History (Vascepa) torsemide 100 mg tablet 100 mg PO DAILY 02/16/24 08/31/24 07/29/24 History omeprazole 20 mg capsule,delayed 20 mg PO DAILY 06/06/24 08/31/24 07/29/24 History release amlodipine 10 mg tablet 10 mg PO HS 07/30/24 08/31/24 07/28/24 History calcium acetate(phosphat bind) 667 667 mg PO QID 07/30/24 08/31/24 07/29/24 History mg capsule erythromycin 5 mg/gram (0.5 %) eye 1 applic EACH EYE HS 07/30/24 08/31/24 Unknown History ointment glucagon 1 mg/0.2 mL subcutaneous See Rx Instructions .Route 07/30/24 08/31/24 Unknown History auto-injector (Mushtaqoke Barben .COMPLEX PRN Hypoglycemia 2-Pack) famotidine 40 mg tablet 40 mg PO HS 08/17/24 08/31/24 Unknown History lidocaine 5 % topical patch 1 patch transdermal Q24H 08/17/24 08/31/24 Unknown History metoprolol succinate 25 mg 50 mg PO DAILY 08/17/24 08/31/24 Unknown History tablet,extended release 24 hr aspirin 81 mg capsule 81 mg PO DAILY 08/31/24 08/31/24 Unknown History colchicine 0.6 mg capsule 0.6 mg PO 3XW 08/31/24 08/31/24 Unknown History cyclosporine 0.05 % eye drops in a 1 drp EACH EYE Q12H 08/31/24 08/31/24 Unknown History dropperette gentamicin 0.1 % topical cream 1 applic topical HS 08/31/24 08/31/24 Unknown History tamsulosin 0.4 mg capsule 0.4 mg PO BID 08/31/24 08/31/24 Unknown History valacyclovir 500 mg tablet 500 mg PO Q12H 08/31/24 08/31/24 Unknown History Allergies Allergy/AdvReac Type Severity Reaction Status Date / Time allopurinol Allergy Severe Other Verified 08/17/24 08:24 iodine Allergy Severe Rash Verified 08/17/24 08:24 iohexol (From CONTRAST - CT, Allergy Severe Difficulty Verified 08/17/24 08:24 XRAY) Breathing ticagrelor Allergy Intermediate Rash Verified 08/17/24 08:24 Review of Systems 2 Review of Systems: All systems reviewed & are unremarkable except as noted in HPI and below Constitutional: Constitutional: Reports no additional constitutional complaints Cardiovascular: Cardiovascular: Reports no additional cardiovascular complaints Respiratory: Respiratory: Reports no additional respiratory complaints Gastrointestinal: Gastrointestinal: Reports no additional gastrointestinal complaints [facility] Past Medical History Medical History Chronic back pain Hematuria Right hand dominant Insulin dependent diabetes mellitus Chronic anticoagulation Paroxysmal atrial fibrillation Renal osteodystrophy Seizure X1 with etiology unknown End-stage renal disease on peritoneal dialysis Essential hypertension Gout Deep venous thrombosis Chronic right popliteal DVT. Coronary artery disease History of several stents including complex procedure at [facility]/ stenting of a heavily calcified CX on OM using shockwave treatment. Gastroesophageal reflux disease Congestive heart failure Echocardiogram May 2017 EF of 50% with hypokinetic apical, inferior and basal inferior lateral segment, mild enlargement of left atrium. Anemia in chronic kidney disease Type 1 diabetes mellitus Onset around age 13. Diabetic retinopathy Diabetic peripheral neuropathy Obstructive sleep apnea With inconsistent CPAP use. Secondary hyperparathyroidism of renal origin Anxiety Arthritis Hyperlipidemia Surgical History Surgical History S/P triple vessel bypass Sep 2023; [facility] History of coronary angioplasty with insertion of stent Drug-eluting stents for high-grade OM 99% occlusion 05/2022. History of hernia repair Peritoneal dialysis catheter in place History of cataract extraction With lens implant History of open reduction and internal fixation (ORIF) procedure (1982) Left lower extremity fracture. And the right hip pinning when he was in the 8th grade History of arthroscopy of left knee History of anterior cruciate ligament surgery (2000) Left knee History of bilateral carpal tunnel release Right 05/03/2018. Left 06/02/2018. History of appendectomy (2006) History of cardiac catheterization 01/21/2021 catheterization at [facility], Dr. Hoover done: Little change from prior catheterization. Patent stents in the RCA and PDA. Previously jailed posterolateral is occluded and development of a 50% stenosis of a branch of om 1. Normal LV function. :August 2019 demonstrated patent stents with 40% stenosis of 1 vessel with no stents or angioplasty performed per patient report. :November [address] [facility] - stent x3. :March 2017 demonstrating mild diffuse coronary disease 80% lesion small sub branch of obtuse marginal 1 and 90% stenosis distal RCA into the origin of the PDA with PTCA and stent to the RPDA/distal RCA performed by Dr. Petit. Family History Family History Father , in his late 60s Acute myocardial infarction Premature coronary artery disease; <65yo CHF (congestive heart failure) Dementia Hypertension S/P triple vessel bypass 1980s Mother Lung cancer Hypertension Daughter Celiac disease Social History Social History Social History: Surrogate medical decision maker: Hodan Pilo (daughter) or Lorne Pilo (brother). Code status: Full code. Smoking status: Never smoker Second hand tobacco smoke exposure: No Alcohol intake: never Substance use: never Substance use type: does not use Do You Feel Safe in your Home?: Yes Lack of Transportation: No Lack of Food: Never True Current Housing: I Have Housing Concerned About Future Housing: No Difficulty Paying Gas/Electric Bills: No Difficulty Paying for Meds: No Currently Unemployed: No Education: Decline to Answer Difficulty w/ Childcare or Family Care: No Living arrangements: alone Additional living arrangements comments: He is single and has 3 children. 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 Spiritual care concerns: No Agree to blood products: Yes Exam 2 Narrative: GENERAL: Well-appearing, well-nourished, and in no acute distress. HEAD: Normocephalic, atraumatic. ENT: Mucous membranes moist. CHEST: Clear to auscultation. No respiratory distress. HEART: Regular rate and rhythm. Normal peripheral pulses. ABDOMEN: Soft, nontender, nondistended. EXTREMITIES: Normal range of motion. No edema. SKIN: Warm, dry, no rash. NEURO: Alert and oriented x3. PSYCH: Normal mood and affect. Course Course Emergency Course: Admit to hospitalist service. 1 L IV fluid bolus. Insulin drip and 10 unit push provided. Broad-spectrum antibiotics for pneumonia. Patient informed of diagnosis and treatment plan. Insulin pump removed. Vital Signs Vital signs: Vital Signs Temperature 97.4 F L 08/31/24 12:08 Pulse Rate 94 08/31/24 12:08 Blood Pressure 102/39 L 08/31/24 12:08 Pulse Oximetry 95 01/11/25 12:08 Oxygen Delivery Room Air 08/31/24 12:08 Temperature 97.8 F 08/31/24 16:32 Pulse Rate 108 H 08/31/24 18:00 Respiratory Rate 18 08/31/24 18:00 Blood Pressure 132/62 08/31/24 18:00 Pulse Oximetry 96 08/31/24 18:00 Oxygen Delivery Nasal Cannula 08/31/24 17:43 Oxygen Flow Rate 2 08/31/24 17:48 Medical Decision Making Vital Signs Vital Signs: Vital Signs Temperature 97.4 F L 08/31/24 12:08 Pulse Rate 94 08/31/24 12:08 Blood Pressure 102/39 L 08/31/24 12:08 Pulse Oximetry 95 08/31/24 12:08 Oxygen Delivery Room Air 08/31/24 12:08 Temperature 97.8 F 08/31/24 16:32 Pulse Rate 108 H 08/31/24 18:00 Respiratory Rate 18 08/31/24 18:00 Blood Pressure 132/62 08/31/24 18:00 Pulse Oximetry 96 08/31/24 18:00 Oxygen Delivery Nasal Cannula 08/31/24 17:43 Oxygen Flow Rate 2 08/31/24 17:48 Lab Data 08/31/24 12:32 08/31/24 16:20 Labs: Lab Results 08/31/24 08/31/24 08/31/24 Range/Units 12:10 12:32 13:44 WBC 6.5 (4.5-10.0) K/mm3 RBC 3.43 L (4.6-6.20) M/mm3 Hgb 10.8 L (14.0-18.0) g/dL Hct 34.9 L (42.0-52.0) % MCV 101.7 H (80-100) fl MCH 31.5 (26-34) pg MCHC 30.9 L (32-36) g/dl RDW 15.0 H (11.5-14.5) % Plt Count 197 (150-375) k/mm3 MPV 10.7 H (7.4-10.4) fl Immature Gran % (Auto) 0.8 H (0-0.5) % Neut % (Auto) 79.0 H (45.5-73.1) % Lymph % (Auto) 8.5 L (18.3-44.2) % Gordon % (Auto) 11.2 H (2.6-8.5) % Eos % (Auto) 0.3 (0-4.4) % Baso % (Auto) 0.2 (0.2-1.2) % Lymph # (Auto) 0.55 L (0.9-3.2) K/mm3 Gordon # (Auto) 0.7 H (0.1-0.6) K/mm3 Eos # (Auto) 0.0 (0-0.3) K/mm3 Baso # (Auto) 0.0 (0.0-0.1) K/mm3 Abs Immat Gran (auto) 0.05 H (0.00-0.031) K/mm3 Absolute Neuts (auto) 5.1 (1.3-6.7) K/mm3 Absolute Nucleated RBC 0.000 (0.0-0.012) K/mm3 Nucleated RBC % 0.0 (0.0-0.2) % PT 19.3 H (11.1-14.7) Seconds INR 1.6 APTT 35.5 (22.3-36.8) Seconds Sodium 124 L (137-145) mmol/L Potassium 5.5 H (3.4-5.0) mmol/L Chloride 85 L (98-107) mmol/L Carbon Dioxide 8 L (22-30) mmol/L Anion Gap 31 H (4-12) mmol/L BUN 77 H (9-20) mg/dL Creatinine 8.96 H (0.7-1.3) mg/dL Estim Creat Clear Calc 11 ml/min Estimated GFR 6 L (59 - ) Glucose 923 H* (65-110) mg/dL POC Capillary Glucose > 500 H* (65-105) mg/dl Lactic Acid 4.1 H* (0.7-2.0) mmol/L Calcium 8.5 (8.4-10.2) mg/dL Total Bilirubin 0.8 (0.2-1.3) mg/dL AST 31 (17-59) U/L ALT 33 (6-50) U/L Alkaline Phosphatase 91 (38-126) U/L Troponin I 0.020 (0.000-0.034) ng/mL NT-Pro-B Natriuret Pep 16825 H (19.9-100) pg/mL Total Protein 6.0 L (6.3-8.2) g/dL Albumin 3.6 (3.5-5.1) g/dL Procalcitonin 1.7 ng/mL Nasal MRSA (PCR) Not detected (NOT DETECTE) Influenza A (RT-PCR) Negative (Negative) Influenza B (RT-PCR) Negative (Negative) RSV (RT-PCR) Negative (Negative) SARS-CoV-2 RNA (RT-PCR) Negative (Negative) 08/31/24 Range/Units 14:51 WBC (4.5-10.0) K/mm3 RBC (4.6-6.20) M/mm3 Hgb (14.0-18.0) g/dL Hct (42.0-52.0) % MCV (80-100) fl MCH (26-34) pg MCHC (32-36) g/dl RDW (11.5-14.5) % Plt Count (150-375) k/mm3 MPV (7.4-10.4) fl Immature Gran % (Auto) (0-0.5) % Neut % (Auto) (45.5-73.1) % Lymph % (Auto) (18.3-44.2) % Gordon % (Auto) (2.6-8.5) % Eos % (Auto) (0-4.4) % Baso % (Auto) (0.2-1.2) % Lymph # (Auto) (0.9-3.2) K/mm3 Gordon # (Auto) (0.1-0.6) K/mm3 Eos # (Auto) (0-0.3) K/mm3 Baso # (Auto) (0.0-0.1) K/mm3 Abs Immat Gran (auto) (0.00-0.031) K/mm3 Absolute Neuts (auto) (1.3-6.7) K/mm3 Absolute Nucleated RBC (0.0-0.012) K/mm3 Nucleated RBC % (0.0-0.2) % PT (11.1-14.7) Seconds INR APTT (22.3-36.8) Seconds Sodium (137-145) mmol/L Potassium (3.4-5.0) mmol/L Chloride (98-107) mmol/L Carbon Dioxide (22-30) mmol/L Anion Gap (4-12) mmol/L BUN (9-20) mg/dL Creatinine (0.7-1.3) mg/dL Estim Creat Clear Calc ml/min Estimated GFR (59 - ) Glucose (65-110) mg/dL POC Capillary Glucose > 500 H* (65-105) mg/dl Lactic Acid (0.7-2.0) mmol/L Calcium (8.4-10.2) mg/dL Total Bilirubin (0.2-1.3) mg/dL AST (17-59) U/L ALT (6-50) U/L Alkaline Phosphatase (38-126) U/L Troponin I (0.000-0.034) ng/mL NT-Pro-B Natriuret Pep (19.9-100) pg/mL Total Protein (6.3-8.2) g/dL Albumin (3.5-5.1) g/dL Procalcitonin ng/mL Nasal MRSA (PCR) (NOT DETECTE) Influenza A (RT-PCR) (Negative) Influenza B (RT-PCR) (Negative) RSV (RT-PCR) (Negative) SARS-CoV-2 RNA (RT-PCR) (Negative) ABG Data ABG results: 08/31/24 12:32 VBG pH 7.212 L* VBG pCO2 26.8 L* VBG pO2 40.5 VBG HCO3 10.5 L O2 Delivery Device Room air O2 Liters/Min Not Reportable FiO2 21 Imaging Data Radiologist's impression: ITS Impressions Chest X-Ray 08/31/24 13:03 IMPRESSION: Patchy left mid and particularly lower lung infiltrate and/or atelectasis, increased since 08/18/2024 Small left pleural effusion Critical Care Time Critical Care Time Critical Care Time: Yes Total Critical Care Time: 35 Discharge Plan Discharge Clinical Impression: DKA (diabetic ketoacidosis) Qualifiers: Diabetes mellitus type: type 1 Diabetes mellitus complication detail: without coma Qualified Code(s): E10.10 - Type 1 diabetes mellitus with ketoacidosis without coma Pneumonia Qualifiers: Pneumonia type: due to unspecified organism Laterality: left Lung location: l ower lobe of lung Qualified Code(s): J18.9 - Pneumonia, unspecified organism Patient Disposition: Still a Patient Condition: Stable
--- NOTE | 2024-08-31 13:30 | WPDCNINT ---
Assessment and Plan Assessment and plan (1) Diabetic ketoacidosis: Code(s): E11.10 - Type 2 diabetes mellitus with ketoacidosis without coma Status: Acute Assessment and Plan: Pt will be given 1 L IVF bolus will hold further IV fluids due to patient's end-stage renal disease and re-evaluate after the bolus Insulin infusion started and Q1H glucose monitoring is being done Serial labs ordered Replace electrolytes as needed npo Consult dietitian and information director (2) ESRD on peritoneal dialysis: Code(s): N18.6 - End stage renal disease; Z99.2 - Dependence on renal dialysis Status: Acute Assessment and Plan: Consult nephrology to set up peritoneal dialysis (3) Sepsis: Code(s): A41.9 - Sepsis, unspecified organism Status: Acute Assessment and Plan: Patient meets criteria for sepsis. Chest x-ray shows left lower lobe infiltrate suggestive of pneumonia. Patient also has right upper quadrant tenderness and has history of cholelithiasis and possible cholecystitis Due to his as treatment disease be given conservative amount of IV fluids and 1 L fluid bolus is ordered Blood cultures, UA and micro Check procalcitonin level CT chest abdomen pelvis Empiric vancomycin Zosyn and azithromycin (4) Pneumonia: Qualifiers: Laterality: left Lung location: lower lobe of lung Pneumonia type: due to unspecified organism Qualified Code(s): J18.9 - Pneumonia, unspecified organism Code(s): J18.9 - Pneumonia, unspecified organism Status: Acute Assessment and Plan: See above (5) Cholelithiasis: Code(s): K80.20 - Calculus of gallbladder without cholecystitis without obstruction Status: Acute Assessment and Plan: Tenderness in right upper quadrant. Check CT scan (6) Abdominal pain: Code(s): R10.9 - Unspecified abdominal pain Status: Resolved Assessment and Plan: See above Plan DVT prophylaxis -continue are Stress ulcer prophylaxis -continue home PPI Nutrition - npo Code Status - Full Code Total Critical Care Time - 35minutes Due to a high probability of clinically significant, life threatening deterioration, the patient required my highest level of preparedness to intervene emergently and I personally spent this critical care time directly and personally managing the patient. This critical care time included obtaining a history; examining the patient; pulse oximetry; ordering and review of studies; arranging urgent treatment with development of a management plan; evaluation of patient's response to treatment; frequent reassessment; and discussions with other providers. It was exclusive of separately billable procedures and treating other patients and teaching time. 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 is a 54 year old male 53 year old male with PMH of DM1 and multiple admissions for DKA, CABG x3, aortic pump, ESRD on PD, anemia in CKD, CHF, CAD, DVT (chronic right popliteal), HTN, GERD, gout, HLD, BEN, pAfib, renal osteodystrophy, and secondary hyperparathyroidism of renal origin who presented to ER with chief complaint of high blood sugars. Patient states that he was feeling fine until yesterday evening when he went to bed. At night time his Dexcom and insulin pump but not communicating with each other and Dexcom continued to show high blood sugar. He states he gave himself insulin bolus 3 different times but when he woke up in the morning his blood sugar was still being recorded high by his Dexcom. He states he started feeling weak and tired. He felt his equilibrium was not right. He also had nausea and vomited the water that he had drank. He denied any abdominal pain. He states he has chronic cough and it has not change significantly. The cough is dry. He felt short of breath this morning after waking up. He denies any fever. He states he has pain all over his body since he fell few days this no chief in all his joints are achy. He denies any other complaint in all the systems were reviewed and were negative Workup in the ER showed normal WBC count at 6.5, INR 1.6 VBG showing metabolic acidosis, sodium 124 potassium 5.5 chloride 85 creatinine 8.96 BUN and blood sugar of 923. Lactic acid 4.1 BNP elevated Chest x-ray shows patchy left mid and particularly low low infiltrate and or atelectasis, small left pleural effusion Review of Systems Review of Systems: All systems reviewed & are unremarkable except as noted in HPI and below (HPI) [facility] Past Medical History Medical History Chronic back pain Hematuria Right hand dominant Insulin dependent diabetes mellitus Chronic anticoagulation Paroxysmal atrial fibrillation Renal osteodystrophy Seizure X1 with etiology unknown End-stage renal disease on peritoneal dialysis Essential hypertension Gout Deep venous thrombosis Chronic right popliteal DVT. Coronary artery disease History of several stents including complex procedure at [place] w/ stenting of a heavily calcified CX on OM using shockwave treatment. Gastroesophageal reflux disease Congestive heart failure Echocardiogram May 2017 EF of 50% with hypokinetic apical, inferior and basal inferior lateral segment, mild enlargement of left atrium. Anemia in chronic kidney disease Type 1 diabetes mellitus Onset around age 13. Diabetic retinopathy Diabetic peripheral neuropathy Obstructive sleep apnea With inconsistent CPAP use. Secondary hyperparathyroidism of renal origin Anxiety Arthritis Hyperlipidemia Surgical History Surgical History S/P triple vessel bypass Sep 2023; [facility] History of coronary angioplasty with insertion of stent Drug-eluting stents for high-grade OM 99% occlusion 05/2022. History of hernia repair Peritoneal dialysis catheter in place History of cataract extraction With lens implant History of open reduction and internal fixation (ORIF) procedure (1982) Left lower extremity fracture. And the right hip pinning when he was in the 8th grade History of arthroscopy of left knee History of anterior cruciate ligament surgery (2000) Left knee History of bilateral carpal tunnel release Right 05/03/2018. Left 06/02/2018. History of appendectomy (2006) History of cardiac catheterization 01/21/2021 catheterization at [facility], Dr. Hoover done: Little change from prior catheterization. Patent stents in the RCA and PDA. Previously jailed posterolateral is occluded and development of a 50% stenosis of a branch of om 1. Normal LV function. :August 2019 demonstrated patent stents with 40% stenosis of 1 vessel with no stents or angioplasty performed per patient report. :November 2018 at [facility] - stent x3. :March 2017 demonstrating mild diffuse coronary disease 80% lesion small sub branch of obtuse marginal 1 and 90% stenosis distal RCA into the origin of the PDA with PTCA and stent to the RPDA/distal RCA performed by Dr. Petit. Family History Family History Father , in his late 60s Acute myocardial infarction Premature coronary artery disease; <65yo CHF (congestive heart failure) Dementia Hypertension S/P triple vessel bypass 1980s Mother Lung cancer Hypertension Daughter Celiac disease Social History Social History Social History: Surrogate medical decision maker: Hodan Daigle (daughter) or Lorne Vargasdre (brother). Code status: Full code. Smoking status: Never smoker Second hand tobacco smoke exposure: No Alcohol intake: never Substance use: never Substance use type: does not use Do You Feel Safe in your Home?: Yes Lack of Transportation: No Lack of Food: Never True Current Housing: I Have Housing Concerned About Future Housing: No Difficulty Paying Gas/Electric Bills: No Difficulty Paying for Meds: No Currently Unemployed: No Education: Decline to Answer Difficulty w/ Childcare or Family Care: No Living arrangements: alone Additional living arrangements comments: He is single and has 3 children. 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 Spiritual care concerns: No Agree to blood products: Yes Meds Home Medications and Allergies Home Medications ?Medication ?Instructions ?Recorded ?Confirmed ?Type calcitriol 0.25 mcg capsule 0.25 mcg PO QAM 06/04/19 08/31/24 History ergocalciferol (vitamin D2) 1,250 50,000 unit PO WEEKLY 06/04/19 08/31/24 History mcg (50,000 unit) capsule (Vitamin D2) nitroglycerin 0.4 mg sublingual 0.4 mg sublingual Q5-15M PRN Chest 06/04/19 08/31/24 History tablet Pain ezetimibe 10 mg tablet (Zetia) 10 mg PO DAILY 09/09/19 08/31/24 History cetirizine 10 mg tablet (All Day 10 mg PO DAILY 12/26/19 08/31/24 History Allergy (cetirizine)) atorvastatin 80 mg tablet 80 mg PO DAILY 11/26/20 08/31/24 History albuterol sulfate 90 mcg/actuation 1 inh inhalation QID PRN shortness 01/12/23 08/31/24 Rx aerosol inhaler (ProAir HFA) of breath or wheezing #8.5 grams potassium chloride 20 mEq 20 meq PO DAILY Cramps 05/20/23 08/31/24 History tablet,extended release febuxostat 40 mg tablet 40 mg PO QPM 07/25/23 08/31/24 History gemfibrozil 600 mg tablet 600 mg PO Q12H 07/25/23 08/31/24 History linaclotide 72 mcg capsule 72 mcg PO DAILY PRN Diarrhea 07/25/23 08/31/24 History (Linzess) icosapent ethyl 1 gram capsule 1 g PO QID 02/16/24 08/31/24 History (Vascepa) torsemide 100 mg tablet 100 mg PO DAILY 02/16/24 08/31/24 History warfarin 3 mg tablet 3 mg PO DAILY #30 tabs 03/01/24 08/31/24 Rx insulin pump cart,automated,BT #45 ea 05/16/24 08/31/24 Rx (Omnipod 5 G6 Pods (Gen 5) subcutaneous cartridge) levothyroxine 25 mcg tablet 25 mcg PO DAILY #90 tabs 05/16/24 08/31/24 Rx omeprazole 20 mg capsule,delayed 20 mg PO DAILY 06/06/24 08/31/24 History release amlodipine 10 mg tablet 10 mg PO HS 07/30/24 08/31/24 History calcium acetate(phosphat bind) 667 667 mg PO QID 07/30/24 08/31/24 History mg capsule erythromycin 5 mg/gram (0.5 %) eye 1 applic EACH EYE HS 07/30/24 08/31/24 History ointment glucagon 1 mg/0.2 mL subcutaneous See Rx Instructions .Route 07/30/24 08/31/24 History auto-injector (Gvoke HypoPen .COMPLEX PRN Hypoglycemia 2-Pack) insulin aspart U-100 100 unit/mL 5 unit (0.05 mL) subcut TIDWMEAL 08/02/24 08/31/24 Rx (3 mL) subcutaneous pen (Novolog #15 mL FlexPen U-100 Insulin aspart) pen needle, diabetic 32 gauge x #100 ea 08/05/24 08/31/24 Rx 5/32 (BD Lucrecia 2nd Gen Pen Needle) cyclobenzaprine 10 mg tablet 5 - 10 mg (0.5 - 1 x 10 mg) PO TID 08/11/24 08/31/24 Rx PRN muscle spasm #10 tabs famotidine 40 mg tablet 40 mg PO HS 08/17/24 08/31/24 History lidocaine 5 % topical patch 1 patch transdermal Q24H 08/17/24 08/31/24 History metoprolol succinate 25 mg 50 mg PO DAILY 08/17/24 08/31/24 History tablet,extended release 24 hr aspirin 81 mg capsule 81 mg PO DAILY 08/31/24 08/31/24 History colchicine 0.6 mg capsule 0.6 mg PO 3XW 08/31/24 08/31/24 History cyclosporine 0.05 % eye drops in a 1 drp EACH EYE Q12H 08/31/24 08/31/24 History dropperette gentamicin 0.1 % topical cream 1 applic topical HS 08/31/24 08/31/24 History tamsulosin 0.4 mg capsule 0.4 mg PO BID 08/31/24 08/31/24 History valacyclovir 500 mg tablet 500 mg PO Q12H 08/31/24 08/31/24 History Allergies Allergy/AdvReac Type Severity Reaction Status Date / Time allopurinol Allergy Severe Other Verified 08/17/24 08:24 iodine Allergy Severe Rash Verified 08/17/24 08:24 iohexol (From CONTRAST - CT, Allergy Severe Difficulty Verified 08/17/24 08:24 XRAY) Breathing ticagrelor Allergy Intermediate Rash Verified 08/17/24 08:24 Vital Signs Vital Signs - 24 hr 08/31/24 12:08 08/31/24 12:25 08/31/24 12:25 Temperature 36.3 C L Pulse Rate 94 96 97 Respiratory Rate 18 Blood Pressure 102/39 L 107/44 L Pulse Oximetry 95 95 Oxygen Delivery Room Air 08/31/24 12:26 Temperature Pulse Rate 96 Respiratory Rate 18 Blood Pressure 107/44 L Pulse Oximetry 100 Oxygen Delivery Room Air Exam Narrative: General: Pt is alert awake and in mild distress Lungs/Chest: Trachea central Clear BS B/L, No crackles or wheezing. Cardiac: RRR. Normal S1 S2. No murmurs Circulation: Pedal pulses are intact and symmetrical. Abdomen: Normal bowel sounds.. Soft. Tenderness in right upper quad cough PD catheter and Extremities: Bilateral pitting edema press : Nguyen in place Neurologic: Follows commands. Moves all 4 extremities PERRL AO x3 Skin: Chronic venous stasis changes on both legs Results Labs 09/01/24 04:24 09/01/24 08:13 Labs: Impressions Chest X-Ray 08/31/24 13:03 IMPRESSION: Patchy left mid and particularly lower lung infiltrate and/or atelectasis, increased since 08/18/2024 Small left pleural effusion Short CBC 08/31/24 Range/Units 12:32 WBC 6.5 (4.5-10.0) K/mm3 Hgb 10.8 L (14.0-18.0) g/dL Hct 34.9 L (42.0-52.0) % Plt Count 197 (150-375) k/mm3 BMP 08/31/24 12:32 Sodium 124 L Potassium 5.5 H Chloride 85 L Carbon Dioxide 8 L BUN 77 H Creatinine 8.96 H Glucose 923 H* Calcium 8.5 Cardiac Enzymes 08/31/24 Range/Units 12:32 Troponin I 0.020 (0.000-0.034) ng/mL Liver Function 08/31/24 Range/Units 12:32 Total Bilirubin 0.8 (0.2-1.3) mg/dL AST 31 (17-59) U/L ALT 33 (6-50) U/L Alkaline Phosphatase 91 (38-126) U/L Albumin 3.6 (3.5-5.1) g/dL Hospitalist MIPS Advance Care Plan I have confirmed that the patient's Advanced Care Plan is present, code status is documented, or surrogate decision maker is listed in patient medical record.: Yes Medication Reconciliation I have utilized all available resources to obtain, update and review the patients current medications (includes all prescriptions, OTC, herbals, cannabis, and nutritional supplements).: Yes
[2024-08-31] MEDS: SODIUM CHLORIDE 0.9% IV 1,000 ML 999 ML IV CONT (13:42)
[2024-08-31] MEDS: INSULIN HUMAN REGULAR (*BKC) 100 UNITS/ML 10 UNITS IV PUSH (13:42)
[2024-08-31] MEDS: ONDANSETRON INJ 4 MG/2 ML VIAL IV PUSH (13:42)
[2024-08-31] MEDS: INSULIN HUMAN REGULAR (*BKC) 100 UNITS in SODIUM CHLORIDE 0.9% IV 99 ML 12.1 UNITS IV CONT (13:43)
[2024-08-31] MEDS: MORPHINE SULFATE (*CRX) 2 MG/ML INJ IV PUSH ×2 (13:55→16:35)
--- NOTE | 2024-08-31 14:01 | P.HP_ITS ---
H&P: HPI History of Present Illness Date/Time: 08/31/24 14:01 Chief Complaint: Hyperglycemia Narrative: 54-year-old male with past medical history of peritoneal dialysis, chronic back pain, insulin-dependent diabetic, atrial fibrillation, gout, and CHF presents the hospital due to hyperglycemia. Patient states that he was recently started on insulin pump I was reading high yesterday believes that the insulin pump was working. Patient also states that earlier this week he slipped and fell on the ice and now has chronic back pain has become worse. The emergency room to try to CT scan him however due to acute back pain he could not tolerate the scan. He also complains of right knee pain. Emergency room patient's hemoglobin was 10.8, sodium of 124, potassium of 5.5, glucose of 923, lactic acid of 4.1, patient was transferred to ICU for DKA and started on insulin drip. Review of Systems Review of Systems: 12 systems were reviewed and are negativ e except for as per HPI. [facility] Past Medical History Medical History Chronic back pain Hematuria Right hand dominant Insulin dependent diabetes mellitus Chronic anticoagulation Paroxysmal atrial fibrillation Renal osteodystrophy Seizure X1 with etiology unknown End-stage renal disease on peritoneal dialysis Essential hypertension Gout Deep venous thrombosis Chronic right popliteal DVT. Coronary artery disease History of several stents including complex procedure at [facility] ([facility] stenting of a heavily calcified CX on OM using shockwave treatment. Gastroesophageal reflux disease Congestive heart failure Echocardiogram May 2017 EF of 50% with hypokinetic apical, inferior and basal inferior lateral segment, mild enlargement of left atrium. Anemia in chronic kidney disease Type 1 diabetes mellitus Onset around age 13. Diabetic retinopathy Diabetic peripheral neuropathy Obstructive sleep apnea With inconsistent CPAP use. Secondary hyperparathyroidism of renal origin Anxiety Arthritis Hyperlipidemia Surgical History Surgical History S/P triple vessel bypass Sep 2023; [facility] History of coronary angioplasty with insertion of stent Drug-eluting stents for high-grade OM 99% occlusion 05/2022. History of hernia repair Peritoneal dialysis catheter in place History of cataract extraction With lens implant History of open reduction and internal fixation (ORIF) procedure (1982) Left lower extremity fracture. And the right hip pinning when he was in the 8th grade History of arthroscopy of left knee History of anterior cruciate ligament surgery (2000) Left knee History of bilateral carpal tunnel release Right 05/03/2018. Left 06/02/2018. History of appendectomy (2006) History of cardiac catheterization 01/21/2021 catheterization at [facility], Dr. Hoover done: Little change from prior catheterization. Patent stents in the RCA and PDA. Previously jailed posterolateral is occluded and development of a 50% stenosis of a branch of om 1. Normal LV function. :August 2019 demonstrated patent stents with 40% stenosis of 1 vessel with no stents or angioplasty performed per patient report. :November 2018 at [facility] - stent x3. :March 2017 demonstrating mild diffuse coronary disease 80% lesion small sub branch of obtuse marginal 1 and 90% stenosis distal RCA into the origin of the PDA with PTCA and stent to the RPDA/distal RCA performed by Dr. Petit. Family History Family History Father , in his late 60s Acute myocardial infarction Premature coronary artery disease; <65yo CHF (congestive heart failure) Dementia Hypertension S/P triple vessel bypass 1980s Mother Lung cancer Hypertension Daughter Celiac disease Social History Social History Social History: Surrogate medical decision maker: Hodan Pilo (daughter) or Lorne Daigle (brother). Code status: Full code. Smoking status: Never smoker Second hand tobacco smoke exposure: No Alcohol intake: never Substance use: never Substance use type: does not use Do You Feel Safe in your Home?: Yes Lack of Transportation: No Lack of Food: Never True Current Housing: I Have Housing Concerned About Future Housing: No Difficulty Paying Gas/Electric Bills: No Difficulty Paying for Meds: No Currently Unemployed: No Education: Decline to Answer Difficulty w/ Childcare or Family Care: No Living arrangements: alone Additional living arrangements comments: He is single and has 3 children. 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 Spiritual care concerns: No Agree to blood products: Yes Meds Home Medications and Allergies Home Medications ?Medication ?Instructions ?Recorded ?Confirmed ?Type calcitriol 0.25 mcg capsule 0.25 mcg PO QAM 06/04/19 08/31/24 History ergocalciferol (vitamin D2) 1,250 50,000 unit PO WEEKLY 06/04/19 08/31/24 History mcg (50,000 unit) capsule (Vitamin D2) nitroglycerin 0.4 mg sublingual 0.4 mg sublingual Q5-15M PRN Chest 06/04/19 08/31/24 History tablet Pain ezetimibe 10 mg tablet (Zetia) 10 mg PO DAILY 09/09/19 08/31/24 History cetirizine 10 mg tablet (All Day 10 mg PO DAILY 12/26/19 08/31/24 History Allergy (cetirizine)) atorvastatin 80 mg tablet 80 mg PO DAILY 11/26/20 08/31/24 History albuterol sulfate 90 mcg/actuation 1 inh inhalation QID PRN shortness 01/12/23 08/31/24 Rx aerosol inhaler (ProAir HFA) of breath or wheezing #8.5 grams potassium chloride 20 mEq 20 meq PO DAILY Cramps 05/20/23 08/31/24 History tablet,extended release febuxostat 40 mg tablet 40 mg PO QPM 07/25/23 08/31/24 History gemfibrozil 600 mg tablet 600 mg PO Q12H 07/25/23 08/31/24 History linaclotide 72 mcg capsule 72 mcg PO DAILY PRN Diarrhea 07/25/23 08/31/24 History (Linzess) icosapent ethyl 1 gram capsule 1 g PO QID 02/16/24 08/31/24 History (Vascepa) torsemide 100 mg tablet 100 mg PO DAILY 02/16/24 08/31/24 History warfarin 3 mg tablet 3 mg PO DAILY #30 tabs 03/01/24 08/31/24 Rx insulin pump cart,automated,BT #45 ea 05/16/24 08/31/24 Rx (Omnipod 5 G6 Pods (Gen 5) subcutaneous cartridge) levothyroxine 25 mcg tablet 25 mcg PO DAILY #90 tabs 05/16/24 08/31/24 Rx omeprazole 20 mg capsule,delayed 20 mg PO DAILY 06/06/24 08/31/24 History release amlodipine 10 mg tablet 10 mg PO HS 07/30/24 08/31/24 History calcium acetate(phosphat bind) 667 667 mg PO QID 07/30/24 08/31/24 History mg capsule erythromycin 5 mg/gram (0.5 %) eye 1 applic EACH EYE HS 07/30/24 08/31/24 History ointment glucagon 1 mg/0.2 mL subcutaneous See Rx Instructions .Route 07/30/24 08/31/24 History auto-injector (Gvoke HypoPen .COMPLEX PRN Hypoglycemia 2-Pack) insulin aspart U-100 100 unit/mL 5 unit (0.05 mL) subcut TIDWMEAL 08/02/24 08/31/24 Rx (3 mL) subcutaneous pen (Novolog #15 mL FlexPen U-100 Insulin aspart) pen needle, diabetic 32 gauge x #100 ea 08/05/24 08/31/24 Rx 5/32 (BD Lucrecia 2nd Gen Pen Needle) cyclobenzaprine 10 mg tablet 5 - 10 mg (0.5 - 1 x 10 mg) PO TID 08/11/24 08/31/24 Rx PRN muscle spasm #10 tabs famotidine 40 mg tablet 40 mg PO HS 08/17/24 08/31/24 History lidocaine 5 % topical patch 1 patch transdermal Q24H 08/17/24 08/31/24 History metoprolol succinate 25 mg 50 mg PO DAILY 08/17/24 08/31/24 History tablet,extended release 24 hr aspirin 81 mg capsule 81 mg PO DAILY 08/31/24 08/31/24 History colchicine 0.6 mg capsule 0.6 mg PO 3XW 08/31/24 08/31/24 History cyclosporine 0.05 % eye drops in a 1 drp EACH EYE Q12H 08/31/24 08/31/24 History dropperette gentamicin 0.1 % topical cream 1 applic topical HS 08/31/24 08/31/24 History tamsulosin 0.4 mg capsule 0.4 mg PO BID 08/31/24 08/31/24 History valacyclovir 500 mg tablet 500 mg PO Q12H 08/31/24 08/31/24 History Allergies Allergy/AdvReac Type Severity Reaction Status Date / Time allopurinol Allergy Severe Other Verified 08/17/24 08:24 iodine Allergy Severe Rash Verified 08/17/24 08:24 iohexol (From CONTRAST - CT, Allergy Severe Difficulty Verified 08/17/24 08:24 XRAY) Breathing ticagrelor Allergy Intermediate Rash Verified 08/17/24 08:24 Vital Signs Vital Signs - 24 hr 08/31/24 12:08 08/31/24 12:25 08/31/24 12:25 Temperature 97.4 F L Pulse Rate 94 96 97 Respiratory Rate 18 Blood Pressure 102/39 L 107/44 L Pulse Oximetry 95 95 Oxygen Delivery Room Air 08/31/24 12:26 08/31/24 13:58 Temperature Pulse Rate 96 92 Respiratory Rate 18 18 Blood Pressure 107/44 L 94/31 L Pulse Oximetry 100 98 Oxygen Delivery Room Air Exam Narrative: General: Chronically ill, appears stated age. HEENT: normocephalic, atraumatic. Mucous membranes moist. EOMI, PERRLA, bilateral sclera anicteric, no conjunctival injection. Neck supple without JVD, lymphadenopathy, or bruit. Respiratory: clear to ascultation bilaterally. No rales/rhonic/wheezes. Cardiovascular: Regular rate and rhythm, normal S1-S2 upon ascultation. No murmurs, rubs, or clicks. PMI is nondisplaced, capillary refill less than 3 second. Abdomen: Soft, round, no pulsatile masses, nondistended and nontender. No rebound, no guarding. No CVA tenderness, no hepatosplenomegaly. Bowel sounds present to all four quadrants. No high pitch or tinkling sounds, resonant to percussion. Peritoneal dialysis catheter Extremities: No cyanosis, clubbing, or edema present. Pulses are palpable 2/2. Active ROM to all four extremities. Neuro: Alert and orientated x 4. PERRLA. Cranial nerves 2-12 intact without focal deficit. Skin: Warm, dry, and intact, without rash, erythema, or lesion. Psych: pleasant, cooperative, normal speech, normal affect, no hallucinations, no dysarthia H&P: Results Labs Labs: Short CBC 08/31/24 Range/Units 12:32 WBC 6.5 (4.5-10.0) K/mm3 Hgb 10.8 L (14.0-18.0) g/dL Hct 34.9 L (42.0-52.0) % Plt Count 197 (150-375) k/mm3 [facility] 08/31/24 12:32 Sodium 124 L Potassium 5.5 H Chloride 85 L Carbon Dioxide 8 L BUN 77 H Creatinine 8.96 H Glucose 923 H* Calcium 8.5 Cardiac Enzymes 08/31/24 Range/Units 12:32 Troponin I 0.020 (0.000-0.034) ng/mL Liver Function 08/31/24 Range/Units 12:32 Total Bilirubin 0.8 (0.2-1.3) mg/dL AST 31 (17-59) U/L ALT 33 (6-50) U/L Alkaline Phosphatase 91 (38-126) U/L Albumin 3.6 (3.5-5.1) g/dL Assessment and Plan Assessment and plan (1) DKA (diabetic ketoacidosis): Code(s): E11.10 - Type 2 diabetes mellitus with ketoacidosis without coma Status: Acute Assessment and Plan: ICU consulted Patient started on insulin drip Insulin pump taken off 1 L fluid bolus given, no maintenance fluids due to use patient's CHF and dialysis per ICU attending Q 4 BMP (2) Hyperkalemia: Code(s): E87.5 - Hyperkalemia Status: Acute Assessment and Plan: Patient given Lokelma an ED Repeat potassium within normal limits (3) Fall: Code(s): W19.XXXA - Unspecified fall, initial encounter Status: Acute Assessment and Plan: Patient slipped and fell on ice Unable to tolerate CT scan due to back pain Spinal x-rays pending Right knee x-ray pending Muscle relaxers pain management (4) Paroxysmal atrial fibrillation: Code(s): I48.0 - Paroxysmal atrial fibrillation Status: Acute Assessment and Plan: Rate controlled Continue metoprolol (5) ESRD on peritoneal dialysis: Code(s): N18.6 - End stage renal disease; Z99.2 - Dependence on renal dialysis Status: Acute Assessment and Plan: Nephrology consulted Peritoneal dialysis at night (6) Gout: Code(s): M10.9 - Gout, unspecified Status: Acute Assessment and Plan: Continue home medication (7) Chronic back pain: Code(s): M54.9 - Dorsalgia, unspecified; G89.29 - Other chronic pain Status: Chronic Assessment and Plan: Continue home meds Quality VTE Prophylaxis VTE prophylaxis: mechanical ordered Hospitalist MIPS Advance Care Plan I have confirmed that the patient's Advanced Care Plan is present, code status is documented, or surrogate decision maker is listed in patient medical record.: Yes Medication Reconciliation I have utilized all available resources to obtain, update and review the patients current medications (includes all prescriptions, OTC, herbals, cannabis, and nutritional supplements).: Yes
[2024-08-31 14:30] LABS: Procalcitonin 1.7 ng/mL
[2024-08-31 14:31] LABS: Influenza A QL RT-PCR Negative (Negative); Influenza B QL RT-PCR Negative (Negative); RSV RNA, RT-PCR Negative (Negative); SARS-CoV-2 RNA PCR Negative (Negative)
[2024-08-31 15:00] LABS: MRSA (PCR) NOT DETECTED (NOT DETECTE)
[2024-08-31] MEDS: INSULIN HUMAN REGULAR (*BKC) 100 UNITS/ML 6 UNITS IV PUSH (15:03)
[2024-08-31 15:35] LABS: Reflex Lactic Acid Yes or No Add Lactic
--- NOTE | 2024-08-31 15:52 | PC.NURSE ---
This patient, Juvenal Daigle Jr., was admitted to Intensive Care Unit-6. Patient/family oriented to hospital policies and general routines including ID bracelet, bed and alarms, visiting hours, pain management, procedures, bathroom and other care routines, personal items, smoking policy, room service/diet, and visiting hours. Information on how to activate the Rapid Response Team has been discussed. Patient/Family are encouraged to report perceived risks to care and to ask questions if they do not understand what they are told or what they should do.
[2024-08-31] MEDS: PIPERACILLIN/TAZ 2.25G/NS 50ML 2.25 GM/50 ML BAG IVPB ×2 (15:58→21:25)
[2024-08-31 16:18] LABS: Glucose Point of Care > 500 mg/dl (65-105)
[2024-08-31] MEDS: AZITHROMYCIN 500 MG/NS 250 ML 500 MG/250 ML BAG 250 MG IVPB (16:23)
[2024-08-31] MEDS: VANCOMYCIN 2,000 MG/NS 500 ML 2,000 MG/500 ML BAG 250 MG IVPB (16:23)
[2024-08-31] MEDS: WARFARIN (*PBKC) 3 MG TABLET PO (16:27)
[2024-08-31 16:35] LABS: Lactic Acid Reflex 3.9 mmol/L (0.7-2.0)
[2024-08-31 16:45] LABS: Glucose Point of Care > 500 mg/dl (65-105)
[2024-08-31 17:05] LABS: Anion Gap 24 mmol/L (4-12); Blood Urea Nitrogen 76 mg/dL (9-20); Calcium 8.6 mg/dL (8.4-10.2); Carbon Dioxide 11 mmol/L (22-30); Chloride 89 mmol/L (98-107); Estimated CRCL calculation 11 ml/min; Estimated Glomerular Filt Rate 6; Glucose 686 mg/dL (65-110); Potassium 4.6 mmol/L (3.4-5.0); Sodium 124 mmol/L (137-145)
[2024-08-31 18:09] LABS: Glucose Point of Care > 500 mg/dl (65-105)
[2024-08-31] MEDS: INSULIN HUMAN REGULAR (*BKC) 100 UNITS in SODIUM CHLORIDE 0.9% IV 99 ML 30 UNITS IV CONT ×2 (18:23→21:24)
[2024-08-31 18:58] LABS: Glucose Point of Care > 500 mg/dl (65-105)
[2024-08-31 20:09] LABS: Glucose Point of Care > 500 mg/dl (65-105)
[2024-08-31 20:55] LABS: Anion Gap 16 mmol/L (4-12); Blood Urea Nitrogen 80 mg/dL (9-20); Calcium 8.4 mg/dL (8.4-10.2); Carbon Dioxide 20 mmol/L (22-30); Chloride 91 mmol/L (98-107); Estimated CRCL calculation 12 ml/min; Estimated Glomerular Filt Rate 7; Glucose 505 mg/dL (65-110); Sodium 127 mmol/L (137-145)
[2024-08-31] MEDS: CALCIUM ACETATE 667 MG TABLET PO (21:20)
[2024-08-31] MEDS: TAMSULOSIN HCL 0.4 MG CAPSULE PO (21:23)
[2024-08-31] MEDS: amLODIPine BESYLATE 10 MG TABLET PO (21:23)
[2024-08-31 21:38] LABS: Glucose Point of Care 445 mg/dl (65-105)
[2024-08-31 22:16] LABS: Glucose Point of Care 448 mg/dl (65-105)
[2024-08-31 23:13] LABS: Glucose Point of Care 411 mg/dl (65-105)
[2024-09-01] VITALS (28 sets, daily range): BP systolic 78–114; BP diastolic 51–79; PULSE 105–115; RESP 14–21; TEMP 36.2–37.2; O2SAT 92–98
[2024-09-01] MEDS: FAMOTIDINE 20 MG TABLET 40 MG PO (00:02)
[2024-09-01] MEDS: ERYTHROMYCIN OPHTH OINTMENT 1 GM TUBE 1 APPLIC EACH EYE ×2 (00:03→21:39)
[2024-09-01] MEDS: CYCLOBENZAPRINE HCL 10 MG TABLET PO (00:03)
[2024-09-01] MEDS: cycloSPORINE 0.4 ML OPHTH SOLUTION 1 DROP EACH EYE ×3 (00:03→21:39)
[2024-09-01] MEDS: valACYclovir HCL 500 MG TABLET PO ×3 (00:04→21:38)
[2024-09-01 00:58] LABS: Glucose Point of Care 396 mg/dl (65-105)
[2024-09-01 01:12] LABS: Glucose Point of Care 306 mg/dl (65-105)
[2024-09-01 01:12] LABS: Anion Gap 13 mmol/L (4-12); Blood Urea Nitrogen 76 mg/dL (9-20); Calcium 8.8 mg/dL (8.4-10.2); Carbon Dioxide 24 mmol/L (22-30); Chloride 92 mmol/L (98-107); Estimated CRCL calculation 12 ml/min; Estimated Glomerular Filt Rate 7; Glucose 320 mg/dL (65-110); Potassium 3.4 mmol/L (3.4-5.0); Sodium 129 mmol/L (137-145)
[2024-09-01] MEDS: INSULIN HUMAN REGULAR (*BKC) 100 UNITS in SODIUM CHLORIDE 0.9% IV 99 ML 30 UNITS IV CONT (01:12)
[2024-09-01 02:07] LABS: Glucose Point of Care 262 mg/dl (65-105)
[2024-09-01 03:25] LABS: Glucose Point of Care 169 mg/dl (65-105)
[2024-09-01 04:36] LABS: Basophils Percent Auto 0.5 % (0.2-1.2); Eosinophils Absolute Auto 0.2 K/mm3 (0-0.3); Eosinophils Percent Auto 3.3 % (0-4.4); Hematocrit 32.2 % (42.0-52.0); Hemoglobin 10.5 g/dL (14.0-18.0); Immature Granulocyte Absolute 0.02 K/mm3 (0.00-0.031); Immature Granulocyte Percent A 0.3 % (0-0.5); Lymphocytes Absolute Auto 1.18 K/mm3 (0.9-3.2); Lymphocytes Percent Auto 17.9 % (18.3-44.2); Mean Corpuscular HGB Conc 32.6 g/dl (32-36); Mean Corpuscular Hemoglobin 30.4 pg (26-34); Mean Corpuscular Volume 93.3 fl (80-100); Mean Platelet Volume 10.1 fl (7.4-10.4); Monocytes Absolute Auto 1.2 K/mm3 (0.1-0.6); Monocytes Percent Auto 17.6 % (2.6-8.5); Neutrophils Percent Auto 60.4 % (45.5-73.1); Platelet Count Result 181 k/mm3 (150-375); Red Blood Count 3.45 M/mm3 (4.6-6.20); Red Cell Distribution Width 15.1 % (11.5-14.5); White Blood Count 6.6 K/mm3 (4.5-10.0)
[2024-09-01 04:47] LABS: Alanine Aminotransferase 29 U/L (6-50); Albumin Level 3.5 g/dL (3.5-5.1); Alkaline Phosphatase 70 U/L (38-126); Anion Gap 11 mmol/L (4-12); Aspartate Amino Transferase 27 U/L (17-59); Bilirubin,Total 0.4 mg/dL (0.2-1.3); Blood Urea Nitrogen 73 mg/dL (9-20); Carbon Dioxide 24 mmol/L (22-30); Chloride 96 mmol/L (98-107); Estimated CRCL calculation 12 ml/min; Estimated Glomerular Filt Rate 7; Glucose 95 mg/dL (65-110); INR 2.4; Magnesium 2.3 mg/dL (1.6-2.3); Potassium 3.3 mmol/L (3.4-5.0); Prothrombin Time 26.6 Seconds (11.1-14.7); Sodium 131 mmol/L (137-145)
[2024-09-01] MEDS: DEXTROSE 50% 25 GM/50 ML SYRINGE IV PUSH ×2 (05:02→06:14)
[2024-09-01 05:24] LABS: Glucose Point of Care 48 mg/dl (65-105)
[2024-09-01 05:24] LABS: Glucose Point of Care 72 mg/dl (65-105)
[2024-09-01 05:24] LABS: Glucose Point of Care 118 mg/dl (65-105)
[2024-09-01 05:24] LABS: Glucose Point of Care 88 mg/dl (65-105)
[2024-09-01] MEDS: PIPERACILLIN/TAZ 2.25G/NS 50ML 2.25 GM/50 ML BAG IVPB ×3 (06:14→21:52)
[2024-09-01] MEDS: LEVOTHYROXINE SODIUM 25 MCG TABLET PO (06:15)
[2024-09-01 06:26] LABS: Glucose Point of Care 66 mg/dl (65-105)
[2024-09-01 06:26] LABS: Glucose Point of Care 140 mg/dl (65-105)
[2024-09-01 06:54] LABS: Glucose Point of Care 112 mg/dl (65-105)
[2024-09-01 07:38] LABS: Glucose Point of Care 108 mg/dl (65-105)
[2024-09-01] MEDS: POTASSIUM CHLORIDE 20 MEQ ER TABLET 40 MEQ PO (08:36)
[2024-09-01] MEDS: ALBUMIN HUMAN 25% 25 GM/100 ML 100 ML IV CONT (08:36)
[2024-09-01 08:42] LABS: Anion Gap 9 mmol/L (4-12); Blood Urea Nitrogen 74 mg/dL (9-20); Calcium 8.7 mg/dL (8.4-10.2); Carbon Dioxide 25 mmol/L (22-30); Chloride 96 mmol/L (98-107); Estimated CRCL calculation 12 ml/min; Estimated Glomerular Filt Rate 7; Glucose 100 mg/dL (65-110); Potassium 3.9 mmol/L (3.4-5.0); Sodium 130 mmol/L (137-145)
[2024-09-01 08:43] LABS: Glucose Point of Care 115 mg/dl (65-105)
[2024-09-01 09:02] LABS: Glucose Point of Care 115 mg/dl (65-105)
--- NOTE | 2024-09-01 09:14 | P.CONNP_ITS ---
Assessment and Plan Assessment and plan (1) End-stage renal disease (ESRD): Code(s): N18.6 - End stage renal disease Status: Acute Assessment and Plan: * ESRD: Peritoneal dialysis. His peritoneal dialysate effluent is clear, however will make sure he does not have infection in light of the pain in the right upper quadrant. Peritoneal dialysis was supervised. He does have gallstones and this may well be responsible too. * Type 1 diabetes mellitus with hyperglycemia, DKA presentation: Insulin, discussed with patient going needs to get on regular insulin in stable from the pump * Hyponatremia in the presence of ESRD: Fluid removed * Possible pneumonia with chest x-ray showing infiltrate: Ceftriaxone and azithromycin * History of sleep apnea on CPAP, maintain CPAP * Anemia of chronic kidney disease: On long acting erythrocyte stimulating agent as needed, usually his hemoglobin sticks around 12 grams/deciliter * Secondary hyperparathyroidism: On calcitriol therapy * History of coronary artery disease. * Diabetes mellitus: Control per ICU team Peritoneal dialysis: -prescriptions altered to his regular schedule -Icodextrin not available in the hospital in the [place] use Dianeal 2.5% -Peritoneal dialysis ssupervised -look at cultures Discussed with Dr. Mi, Telephonic Case Manager team Plan See above discussion History of Present Illness Reason for Consult Consult date: 09/01/24 Reason for consult: end stage renal disease Chief Complaint Chief complaint: dka, pneumonia History of Present Illness Narrative: 54 yo male type 1 DM, HTN, CAD, CHF, BEN on CPAP, with ESRD on peritoneal dialysis. Admitted with failure of dexcom, insulin pump connection per patient report. Now DKA, possible pneumonia. He fell earlier last week and he worsened his chronic back pain. Denires feve, cough. He is SOB. CXR shows: patchy infiltrates left lung. He is on ceftriaxone and azithromycin, Earlier on he received vancomycin and Zosyn. He is afebrilt, BP is on lower side, he is receiving albumin to support the BP. WBC is 6.5K. He is SOB with need for O2. Rest ROS is normal PERITONEAL DIALYSATE: effluent is clear, 1345 mls overnigh UF Review of Systems 2 Review of Systems: Rest negative [facility] Past Medical History Medical History Chronic back pain Hematuria Right hand dominant Insulin dependent diabetes mellitus Chronic anticoagulation Paroxysmal atrial fibrillation Renal osteodystrophy Seizure X1 with etiology unknown End-stage renal disease on peritoneal dialysis Essential hypertension Gout Deep venous thrombosis Chronic right popliteal DVT. Coronary artery disease History of several stents including complex procedure at [facility] w/ stenting of a heavily calcified CX on OM using shockwave treatment. Gastroesophageal reflux disease Congestive heart failure Echocardiogram May 2017 EF of 50% with hypokinetic apical, inferior and basal inferior lateral segment, mild enlargement of left atrium. Anemia in chronic kidney disease Type 1 diabetes mellitus Onset around age 13. Diabetic retinopathy Diabetic peripheral neuropathy Obstructive sleep apnea With inconsistent CPAP use. Secondary hyperparathyroidism of renal origin Anxiety Arthritis Hyperlipidemia Surgical History Surgical History S/P triple vessel bypass Sep 2023; [facility] History of coronary angioplasty with insertion of stent Drug-eluting stents for high-grade OM 99% occlusion 05/2022. History of hernia repair Peritoneal dialysis catheter in place History of cataract extraction With lens implant History of open reduction and internal fixation (ORIF) procedure (1982) Left lower extremity fracture. And the right hip pinning when he was in the 8th grade History of arthroscopy of left knee History of anterior cruciate ligament surgery (2000) Left knee History of bilateral carpal tunnel release Right 05/03/2018. Left 06/02/2018. History of appendectomy (2006) History of cardiac catheterization 01/21/2021 catheterization at [facility], Dr. Hoover done: Little change from prior catheterization. Patent stents in the RCA and PDA. Previously jailed posterolateral is occluded and development of a 50% stenosis of a branch of om 1. Normal LV function. :August 2019 demonstrated patent stents with 40% stenosis of 1 vessel with no stents or angioplasty performed per patient report. :November 2018 at [facility] - stent x3. :March 2017 demonstrating mild diffuse coronary disease 80% lesion small sub branch of obtuse marginal 1 and 90% stenosis distal RCA into the origin of the PDA with PTCA and stent to the RPDA/distal RCA performed by Dr. Petit. Family History Family History Father , in his late 60s Acute myocardial infarction Premature coronary artery disease; <65yo CHF (congestive heart failure) Dementia Hypertension S/P triple vessel bypass 1980s Mother Lung cancer Hypertension Daughter Celiac disease Social History Social History Social History: Surrogate medical decision maker: Hodan Vargasdre (daughter) or Lorne Pilo (brother). Code status: Full code. Smoking status: Never smoker Second hand tobacco smoke exposure: No Alcohol intake: never Substance use: never Substance use type: does not use Do You Feel Safe in your Home?: Yes Lack of Transportation: No Lack of Food: Never True Current Housing: I Have Housing Concerned About Future Housing: No Difficulty Paying Gas/Electric Bills: No Difficulty Paying for Meds: No Currently Unemployed: No Education: Decline to Answer Difficulty w/ Childcare or Family Care: No Living arrangements: alone Additional living arrangements comments: He is single and has 3 children. 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 Spiritual care concerns: No Agree to blood products: Yes Meds Home Medications and Allergies Home Medications ?Medication ?Instructions ?Recorded ?Confirmed ?Type calcitriol 0.25 mcg capsule 0.25 mcg PO QAM 06/04/19 08/31/24 History ergocalciferol (vitamin D2) 1,250 50,000 unit PO WEEKLY 06/04/19 08/31/24 History mcg (50,000 unit) capsule (Vitamin D2) nitroglycerin 0.4 mg sublingual 0.4 mg sublingual Q5-15M PRN Chest 06/04/19 08/31/24 History tablet Pain ezetimibe 10 mg tablet (Zetia) 10 mg PO DAILY 09/09/19 08/31/24 History cetirizine 10 mg tablet (All Day 10 mg PO DAILY 12/26/19 08/31/24 History Allergy (cetirizine)) atorvastatin 80 mg tablet 80 mg PO DAILY 11/26/20 08/31/24 History albuterol sulfate 90 mcg/actuation 1 inh inhalation QID PRN shortness 01/12/23 08/31/24 Rx aerosol inhaler (ProAir HFA) of breath or wheezing #8.5 grams potassium chloride 20 mEq 20 meq PO DAILY Cramps 05/20/23 08/31/24 History tablet,extended release febuxostat 40 mg tablet 40 mg PO QPM 07/25/23 08/31/24 History gemfibrozil 600 mg tablet 600 mg PO Q12H 07/25/23 08/31/24 History linaclotide 72 mcg capsule 72 mcg PO DAILY PRN Diarrhea 07/25/23 08/31/24 History (Linzess) icosapent ethyl 1 gram capsule 1 g PO QID 02/16/24 08/31/24 History (Vascepa) torsemide 100 mg tablet 100 mg PO DAILY 02/16/24 08/31/24 History warfarin 3 mg tablet 3 mg PO DAILY #30 tabs 03/01/24 08/31/24 Rx insulin pump cart,automated,BT #45 ea 05/16/24 08/31/24 Rx (Omnipod 5 G6 Pods (Gen 5) subcutaneous cartridge) levothyroxine 25 mcg tablet 25 mcg PO DAILY #90 tabs 05/16/24 08/31/24 Rx omeprazole 20 mg capsule,delayed 20 mg PO DAILY 06/06/24 08/31/24 History release amlodipine 10 mg tablet 10 mg PO HS 07/30/24 08/31/24 History calcium acetate(phosphat bind) 667 667 mg PO QID 07/30/24 08/31/24 History mg capsule erythromycin 5 mg/gram (0.5 %) eye 1 applic EACH EYE HS 07/30/24 08/31/24 History ointment glucagon 1 mg/0.2 mL subcutaneous See Rx Instructions .Route 07/30/24 08/31/24 History auto-injector (Gvoke HypoPen .COMPLEX PRN Hypoglycemia 2-Pack) insulin aspart U-100 100 unit/mL 5 unit (0.05 mL) subcut TIDWMEAL 08/02/24 08/31/24 Rx (3 mL) subcutaneous pen (Novolog #15 mL FlexPen U-100 Insulin aspart) pen needle, diabetic 32 gauge x #100 ea 08/05/24 08/31/24 Rx 5/32 (BD Lucrecia 2nd Gen Pen Needle) cyclobenzaprine 10 mg tablet 5 - 10 mg (0.5 - 1 x 10 mg) PO TID 08/11/24 08/31/24 Rx PRN muscle spasm #10 tabs famotidine 40 mg tablet 40 mg PO HS 08/17/24 08/31/24 History lidocaine 5 % topical patch 1 patch transdermal Q24H 08/17/24 08/31/24 History metoprolol succinate 25 mg 50 mg PO DAILY 08/17/24 08/31/24 History tablet,extended release 24 hr aspirin 81 mg capsule 81 mg PO DAILY 08/31/24 08/31/24 History colchicine 0.6 mg capsule 0.6 mg PO 3XW 08/31/24 08/31/24 History cyclosporine 0.05 % eye drops in a 1 drp EACH EYE Q12H 08/31/24 08/31/24 History dropperette gentamicin 0.1 % topical cream 1 applic topical HS 08/31/24 08/31/24 History tamsulosin 0.4 mg capsule 0.4 mg PO BID 08/31/24 08/31/24 History valacyclovir 500 mg tablet 500 mg PO Q12H 08/31/24 08/31/24 History Allergies Allergy/AdvReac Type Severity Reaction Status Date / Time allopurinol Allergy Severe Other Verified 08/17/24 08:24 iodine Allergy Severe Rash Verified 08/17/24 08:24 iohexol (From CONTRAST - CT, Allergy Severe Difficulty Verified 08/17/24 08:24 XRAY) Breathing ticagrelor Allergy Intermediate Rash Verified 08/17/24 08:24 Vital Signs Vital Signs - 24 hr 08/31/24 12:08 08/31/24 12:25 08/31/24 12:25 Temperature 36.3 C L Pulse Rate 94 96 97 Respiratory Rate 18 Blood Pressure 102/39 L 107/44 L Pulse Oximetry 95 95 Oxygen Delivery Room Air Oxygen Flow Rate Fraction of Inspired Oxygen 08/31/24 12:26 08/31/24 13:58 08/31/24 14:58 Temperature Pulse Rate 96 92 98 Respiratory Rate 18 18 16 Blood Pressure 107/44 L 94/31 L 117/93 H Pulse Oximetry 100 98 96 Oxygen Delivery Room Air Oxygen Flow Rate Fraction of Inspired Oxygen 08/31/24 16:00 08/31/24 16:32 08/31/24 17:43 Temperature 36.6 C Pulse Rate 109 H 108 H Respiratory Rate 20 Blood Pressure 124/66 Pulse Oximetry 97 90 Oxygen Delivery Nasal Cannula Oxygen Flow Rate 2 Fraction of Inspired Oxygen 08/31/24 17:48 08/31/24 18:00 08/31/24 18:00 Temperature Pulse Rate 108 H 108 H Respiratory Rate 18 Blood Pressure 132/62 Pulse Oximetry 96 Oxygen Delivery Oxygen Flow Rate 2 Fraction of Inspired Oxygen 08/31/24 20:00 08/31/24 20:00 08/31/24 22:00 Temperature 36.4 C Pulse Rate 109 H 109 H 109 H Respiratory Rate 16 17 Blood Pressure 146/79 H 128/65 Pulse Oximetry 95 96 Oxygen Delivery Oxygen Flow Rate Fraction of Inspired Oxygen 08/31/24 22:00 09/01/24 00:00 09/01/24 00:00 Temperature 36.3 C L Pulse Rate 108 H 109 H Respiratory Rate 14 Blood Pressure 111/70 Pulse Oximetry 96 96 Oxygen Delivery Nasal Cannula Oxygen Flow Rate 2 Fraction of Inspired Oxygen 09/01/24 00:00 09/01/24 02:00 09/01/24 02:00 Temperature Pulse Rate 109 H 110 H 115 H Respiratory Rate 19 Blood Pressure 92/57 L Pulse Oximetry 94 Oxygen Delivery Oxygen Flow Rate Fraction of Inspired Oxygen 09/01/24 04:00 09/01/24 04:00 09/01/24 04:00 Temperature 36.2 C L Pulse Rate 108 H 110 H Respiratory Rate 17 Blood Pressure 91/65 L Pulse Oximetry 96 96 Oxygen Delivery Nasal Cannula Oxygen Flow Rate 2 Fraction of Inspired Oxygen 09/01/24 05:00 09/01/24 05:24 09/01/24 06:00 Temperature Pulse Rate 105 H 114 H Respiratory Rate 16 Blood Pressure 86/56 L Pulse Oximetry 94 Oxygen Delivery Autopap Oxygen Flow Rate Fraction of Inspired Oxygen 09/01/24 06:00 09/01/24 07:00 09/01/24 07:55 Temperature 36.4 C L Pulse Rate 111 H 108 H 114 H Respiratory Rate 15 21 H 15 Blood Pressure 78/56 L 86/56 L 84/57 L Pulse Oximetry 93 94 94 Oxygen Delivery Oxygen Flow Rate Fraction of Inspired Oxygen 09/01/24 08:35 09/01/24 08:47 Temperature 36.4 C L Pulse Rate 112 H Respiratory Rate 17 Blood Pressure 80/51 L Pulse Oximetry 95 Oxygen Delivery Nasal Cannula Oxygen Flow Rate 2 2 Fraction of Inspired Oxygen 28 Exam 2 Const: General: cooperative and tired appearing HENMT: Head: normal to inspection, normocephalic and atraumatic Mouth: Yes Normal oral and palatal mucosa present Eyes: Eyelids: eyelids normal Conjunctivae: conjunctivae normal Direct Ophthalmoscopy: no photophobia Neck: Neck: normal visual inspection and no JVD Resp: Effort & Inspection: normal respiratory effort and able to speak in complete sentences Auscultation: clear to auscultation bilaterally and no rales Cardio: Jugular venous distension: no JVD Rate: regular rate Rhythm: r egular rhythm GI: Inspection: no edema and obesity GI Palp: Yes abdominal tenderness (ruq) Other: PD exit site: cuff exposure Skin: Lesions: no lesions Rashes: no rashes Neuro: Cognition (Neuro): normal cognition Speech: normal speech Extrem: Right upper extremity: normal to inspection Left upper extremity: n ormal to inspection Right lower extremity: normal to inspection Left lower extremity: normal to inspection Psych: Appearance: grossly normal Mental Status: mental status grossly normal Results Lab Results 09/01/24 04:24 09/01/24 08:13 Lab results: Most recent lab results Calcium 8.7 mg/dL (8.4-10.2) 09/01/24 08:13 Magnesium 2.3 mg/dL (1.6-2.3) 09/01/24 04:24 Image Kidney/bladder ultrasound: report reviewed and image reviewed
--- NOTE | 2024-09-01 09:20 | WPDINTPN ---
Progress Note: A&P Assessment and Plan (1) Diabetic ketoacidosis: Code(s): E11.10 - Type 2 diabetes mellitus with ketoacidosis without coma Status: Acute Assessment and Plan: Pt will be given 1 L IVF bolus will hold further IV fluids due to patient's end-stage renal disease Insulin infusion was started and Q1H glucose monitoring was Serial labs were done His anion gap has now closed and patient actually became hypoglycemic hence the insulin drip was held He is currently NPO for ultrasound. Post ultrasound will start diet and transition him to subcutaneous insulin until then continue insulin infusion if blood sugar rice again Continue q.1 hour Accu-Cheks npo at this time Consult dietitian and conservation educator (2) ESRD on peritoneal dialysis: Code(s): N18.6 - End stage renal disease; Z99.2 - Dependence on renal dialysis Status: Acute Assessment and Plan: Patient received his peritoneal dialysis overnight and 1300 mL fluid was removed Nephrology following (3) Sepsis: Code(s): A41.9 - Sepsis, unspecified organism Status: Acute Assessment and Plan: Patient met criteria for sepsis. Chest x-ray shows left lower lobe infiltrate suggestive of pneumonia. 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 See above (6) Abdominal pain: Code(s): R10.9 - Unspecified abdominal pain Status: Resolved Assessment and Plan: See above (7) Hypertension: Code(s): I10 - Essential (primary) hypertension Status: Chronic Assessment and Plan: Blood pressure borderline Hold amlodipine and beta-umair Plan DVT prophylaxis -warfarin Stress ulcer prophylaxis -continue home PPI Nutrition - npo Code Status - Full Code Total Critical Care Time - 32 minutes Due to a high probability of clinically significant, life threatening deterioration, the patient required my highest level of preparedness to intervene emergently and I personally spent this critical care time directly and personally managing the patient. This critical care time included obtaining a history; examining the patient; pulse oximetry; ordering and review of studies; arranging urgent treatment with development of a management plan; evaluation of patient's response to treatment; frequent reassessment; and discussions with other providers. It was exclusive of separately billable procedures and treating other patients and teaching time. Please see Assessment and Plan section and the rest of the note for further information on patient assessment and treatment Subjective Date/time seen: 09/01/24 Patient states although he feels better than yesterday he steals otherwise says feels sick weak and tired. He states he is having belly pain and points toward right side of his abdomen. He rates the pain at 3 to 4/10 and 10 out 10 when his abdomen is examined. He denies any nausea at this time no chest pain shortness a breath. He has chronic cough which is unchanged. He denies any other complaints. No fever overnight. No dizziness or lightheadedness. Patient has been receiving several pain and other sedative medications and is sleepy this morning. Blood pressure is soft but he did get his amlodipine last time. He is in urine He had his PD overnight Afebrile. Sinus tachycardia on the monitor Review of Systems Review of Systems: All systems reviewed & are unremarkable except as noted in HPI and below (HPI) Exam Narrative: General: Pt is alert awake and in mild distress Lungs/Chest: Trachea central Clear BS B/L, No crackles or wheezing. Cardiac: RRR. Normal S1 S2. No murmurs Circulation: Pedal pulses are intact and symmetrical. Abdomen: Normal bowel sounds.. Soft. Tenderness in right upper quadrant, PD catheter in place Extremities: Bilateral pitting edema : Nguyen in place Neurologic: Follows commands. Moves all 4 extremities PERRL AO x3 Skin: Chronic venous stasis changes on both legs Objective Data Vital Signs Vital Signs: Vital Signs - 24 hr 08/31/24 12:08 08/31/24 12:25 08/31/24 12:25 Temperature 36.3 C L Pulse Rate 94 96 97 Respiratory Rate 18 Blood Pressure 102/39 L 107/44 L Pulse Oximetry 95 95 Oxygen Delivery Room Air Oxygen Flow Rate Fraction of Inspired Oxygen 08/31/24 12:26 08/31/24 13:58 08/31/24 14:58 Temperature Pulse Rate 96 92 98 Respiratory Rate 18 18 16 Blood Pressure 107/44 L 94/31 L 117/93 H Pulse Oximetry 100 98 96 Oxygen Delivery Room Air Oxygen Flow Rate Fraction of Inspired Oxygen 08/31/24 16:00 08/31/24 16:32 08/31/24 17:43 Temperature 36.6 C Pulse Rate 109 H 108 H Respiratory Rate 20 Blood Pressure 124/66 Pulse Oximetry 97 90 Oxygen Delivery Nasal Cannula Oxygen Flow Rate 2 Fraction of Inspired Oxygen 08/31/24 17:48 08/31/24 18:00 08/31/24 18:00 Temperature Pulse Rate 108 H 108 H Respiratory Rate 18 Blood Pressure 132/62 Pulse Oximetry 96 Oxygen Delivery Oxygen Flow Rate 2 Fraction of Inspired Oxygen 08/31/24 20:00 08/31/24 20:00 08/31/24 22:00 Temperature 36.4 C Pulse Rate 109 H 109 H 109 H Respiratory Rate 16 17 Blood Pressure 146/79 H 128/65 Pulse Oximetry 95 96 Oxygen Delivery Oxygen Flow Rate Fraction of Inspired Oxygen 08/31/24 22:00 09/01/24 00:00 09/01/24 00:00 Temperature 36.3 C L Pulse Rate 108 H 109 H Respiratory Rate 14 Blood Pressure 111/70 Pulse Oximetry 96 96 Oxygen Delivery Nasal Cannula Oxygen Flow Rate 2 Fraction of Inspired Oxygen 09/01/24 00:00 09/01/24 02:00 09/01/24 02:00 Temperature Pulse Rate 109 H 110 H 115 H Respiratory Rate 19 Blood Pressure 92/57 L Pulse Oximetry 94 Oxygen Delivery Oxygen Flow Rate Fraction of Inspired Oxygen 09/01/24 04:00 09/01/24 04:00 09/01/24 04:00 Temperature 36.2 C L Pulse Rate 108 H 110 H Respiratory Rate 17 Blood Pressure 91/65 L Pulse Oximetry 96 96 Oxygen Delivery Nasal Cannula Oxygen Flow Rate 2 Fraction of Inspired Oxygen 09/01/24 05:00 09/01/24 05:24 09/01/24 06:00 Temperature Pulse Rate 105 H 114 H Respiratory Rate 16 Blood Pressure 86/56 L Pulse Oximetry 94 Oxygen Delivery Autopap Oxygen Flow Rate Fraction of Inspired Oxygen 09/01/24 06:00 09/01/24 07:00 09/01/24 07:55 Temperature 36.4 C L Pulse Rate 111 H 108 H 114 H Respiratory Rate 15 21 H 15 Blood Pressure 78/56 L 86/56 L 84/57 L Pulse Oximetry 93 94 94 Oxygen Delivery Oxygen Flow Rate Fraction of Inspired Oxygen 09/01/24 08:35 09/01/24 08:47 Temperature 36.4 C L Pulse Rate 112 H Respiratory Rate 17 Blood Pressure 80/51 L Pulse Oximetry 95 Oxygen Delivery Nasal Cannula Oxygen Flow Rate 2 2 Fraction of Inspired Oxygen 28 Intake/Output Intake/Output: Intake & Output 08/29/24 08/30/24 08/31/24 09/01/24 23:59 23:59 23:59 23:59 Intake Total 1137.1 298.3 Output Total 0 2651 Balance 1137.1 -2352.7 Meds/Results Medications: Active Medications Generic Name Dose Route Start Last Admin Trade Name Freq PRN Reason Stop Dose Admin Acetaminophen 650 mg 08/31/24 19:35 Acetaminophen 325 Mg Tablet PO Q4H PRN Mild Pain (1-3) or Fever Albuterol 2.5 mg 08/31/24 13:59 Albuterol Sulfate Neb 2.5 Mg/3 Ml Inh INHALATION Q4HRT PRN Shortness Of Breath Or Wheezing Albuterol 1 puff 08/31/24 22:48 Albuterol Sulfate (*Sp) Aerosol 1 Puff INHALATION Q6HRT PRN shortness of breath or wheezing Aspirin 81 mg 09/01/24 09:00 Aspirin 81 Mg Chewable Tablet PO DAILY [facility] Atorvastatin Calcium 80 mg 09/01/24 09:00 Atorvastatin 40 Mg Tablet PO DAILY [facility] Calcitriol 0.25 mcg 09/01/24 09:00 Calcitriol 0.25 Mcg Capsule PO QAM [facility] Calcium Acetate 667 mg 08/31/24 21:00 08/31/24 21:20 Calcium Acetate 667 Mg Tablet PO 667 mg QID [facility] Administration Cyclobenzaprine HCl 10 mg 08/31/24 23:58 09/01/24 00:03 Cyclobenzaprine Hcl 10 Mg Tablet PO 10 mg Q8H PRN Administration muscle spasm Cyclosporine 1 drop 08/31/24 22:50 09/01/24 00:03 Cyclosporine 0.4 Ml Ophth Solution EACH EYE 1 drop Q12HR [facility] Administration Dextrose 12.5 gm 09/01/24 05:26 09/01/24 06:14 Dextrose 50% 25 Gm/50 Ml Syringe IV PUSH 12.5 gm PRN PRN Administration hypoglycemia Protocol Ezetimibe 10 mg 09/01/24 09:00 Ezetimibe 10 Mg Tablet PO DAILY [facility] Erythromycin 1 applic 08/31/24 23:05 09/01/24 00:03 Erythromycin Ophth Ointment 1 Gm Tube EACH EYE 1 applic HS [facility] Administration Gentamicin Sulfate 1 applic 09/01/24 17:00 Gentamicin Sulfate 0.1% Oint 15 Gm Tube TOPICAL DAILY [facility] Glucagon 1 mg 09/01/24 05:05 Glucagon For Inj 1 Mg Vial IM PRN PRN Hypoglycemia Protocol Glucose 15 gm 09/01/24 05:05 Glucose Oral Gel 15 Gm Of Glucse In 37.5 Gm Tube PO PRN PRN Hypoglycemia Protocol Hydromorphone HCl 0.5 mg 08/31/24 19:39 Hydromorphone Hcl Inj (*Crx) 1 Mg/Ml Syr IV PUSH Q3H PRN Pain Rated 7-10 Insulin Human Regular 100 100 mls @ 0 mls/hr 08/31/24 13:15 09/01/24 06:21 units/ Sodium Chloride IV CONT Not Given .Q0M [facility] Protocol Azithromycin 500 mg in 250 mls @ 250 mls/hr 09/01/24 14:00 Zithromax IVPB Q24H [facility] Piperacillin Sod/Tazobactam Sod 2.25 gm in 50 mls @ 100 mls/hr 08/31/24 14:00 09/01/24 06:44 Zosyn 2.25 Gm/Ns 50 Ml IVPB Infused Q8H [facility] Infusion Dextrose 1,000 mls @ 100 mls/hr 09/01/24 05:05 Dextrose 5% 1,000 Ml IVPB PRN PRN Hypoglycemia Protocol Albumin Human 100 mls @ 25 mls/hr 09/01/24 07:58 09/01/24 08:36 Albutein IV CONT 09/01/24 11:57 25 mls/hr .Q4H ONE Administration Phenylephrine HCl 50 mg/ 250 ml in 250 mls @ 12 mls/hr 09/01/24 08:00 Dextrose IV CONT .[id number] [facility] Protocol 40 MCG/MIN Levothyroxine Sodium 25 mcg 09/01/24 06:30 09/01/24 06:15 Levothyroxine Sodium 25 Mcg Tablet PO 25 mcg DAILY@0630 [facility] Administration Nitroglycerin 0.4 mg 08/31/24 22:48 Nitroglycerin Sl 0.4 Mg Tablet SUBLINGUAL Q5MIN PRN Chest Pain Ondansetron HCl 4 mg 08/31/24 13:20 08/31/24 13:42 Ondansetron Inj 4 Mg/2 Ml Vial IV PUSH 4 mg Q4H PRN Administration Nausea Oxycodone HCl 5 mg 08/31/24 19:39 Oxycodone Hcl (*Crx) 5 Mg Tab Ir PO Q4H PRN Pain Rated 7-10 Pantoprazole Sodium 40 mg 09/01/24 09:00 Pantoprazole 40 Mg Tablet PO QAM [facility] Tamsulosin HCl 0.4 mg 08/31/24 19:45 08/31/24 21:23 Tamsulosin Hcl 0.4 Mg Capsule PO 0.4 mg BID [facility] Administration Valacyclovir HCl 500 mg 08/31/24 23:05 09/01/24 00:04 Valacyclovir Hcl 500 Mg Tablet PO 500 mg Q12HR [facility] Administration Vancomycin HCl 1 each 08/31/24 13:35 Vancomycin For Peritoneal Dialysis IVPB PRN PRN Vancomycin Protocol Warfarin Sodium 3 mg 08/31/24 17:00 08/31/24 16:27 Warfarin (*Pbkc) 3 Mg Tablet PO 3 mg DAILY@1700 [facility] Administration Radiology Results: ITS Impressions Chest X-Ray 08/31/24 13:03 IMPRESSION: Patchy left mid and particularly lower lung infiltrate and/or atelectasis, increased since 08/18/2024 Small left pleural effusion Labs Labs: Laboratory Results - last 24 hr 08/31/24 08/31/24 08/31/24 12:10 12:32 13:44 WBC 6.5 RBC 3.43 L Hgb 10.8 L Hct 34.9 L MCV 101.7 H MCH 31.5 MCHC 30.9 L RDW 15.0 H Plt Count 197 MPV 10.7 H Immature Gran % (Auto) 0.8 H Neut % (Auto) 79.0 H Lymph % (Auto) 8.5 L [place] % (Auto) 11.2 H Eos % (Auto) 0.3 Baso % (Auto) 0.2 Lymph # (Auto) 0.55 L [place] # (Auto) 0.7 H Eos # (Auto) 0.0 Baso # (Auto) 0.0 Abs Immat Gran (auto) 0.05 H Absolute Neuts (auto) 5.1 Absolute Nucleated RBC 0.000 Nucleated RBC % 0.0 PT 19.3 H INR 1.6 APTT 35.5 VBG pH 7.212 L* VBG pCO2 26.8 L* VBG pO2 40.5 VBG HCO3 10.5 L O2 Delivery Device Room air O2 Liters/Min Not Reportable FiO2 21 Sodium 124 L Potassium 5.5 H Chloride 85 L Carbon Dioxide 8 L Anion Gap 31 H BUN 77 H Creatinine 8.96 H Estim Creat Clear Calc 11 Estimated GFR 6 L Glucose 923 H* POC Capillary Glucose > 500 H* Lactic Acid 4.1 H* Calcium 8.5 Magnesium Total Bilirubin 0.8 AST 31 ALT 33 Alkaline Phosphatase 91 Troponin I 0.020 NT-Pro-B Natriuret Pep 10567 H Total Protein 6.0 L Albumin 3.6 Procalcitonin 1.7 Nasal MRSA (PCR) Not detected Influenza A (RT-PCR) Negative Influenza B (RT-PCR) Negative RSV (RT-PCR) Negative SARS-CoV-2 RNA (RT-PCR) Negative 08/31/24 08/31/24 08/31/24 14:51 15:53 16:20 WBC RBC Hgb Hct MCV MCH MCHC RDW Plt Count MPV Immature Gran % (Auto) Neut % (Auto) Lymph % (Auto) [place] % (Auto) Eos % (Auto) Baso % (Auto) Lymph # (Auto) [place] # (Auto) Eos # (Auto) Baso # (Auto) Abs Immat Gran (auto) Absolute Neuts (auto) Absolute Nucleated RBC Nucleated RBC % PT INR APTT VBG pH VBG pCO2 VBG pO2 VBG HCO3 O2 Delivery Device O2 Liters/Min FiO2 Sodium 124 L Potassium 4.6 Chloride 89 L Carbon Dioxide 11 L Anion Gap 24 H BUN 76 H Creatinine 8.87 H Estim Creat Clear Calc 11 Estimated GFR 6 L Glucose 686 H* POC Capillary Glucose > 500 H* > 500 H* Lactic Acid 3.9 H Calcium 8.6 Magnesium Total Bilirubin AST ALT Alkaline Phosphatase Troponin I NT-Pro-B Natriuret Pep Total Protein Albumin Procalcitonin Nasal MRSA (PCR) Influenza A (RT-PCR) Influenza B (RT-PCR) RSV (RT-PCR) SARS-CoV-2 RNA (RT-PCR) 08/31/24 08/31/24 08/31/24 18:07 18:56 20:06 WBC RBC Hgb Hct MCV MCH MCHC RDW Plt Count MPV Immature Gran % (Auto) Neut % (Auto) Lymph % (Auto) [place] % (Auto) Eos % (Auto) Baso % (Auto) Lymph # (Auto) [place] # (Auto) Eos # (Auto) Baso # (Auto) Abs Immat Gran (auto) Absolute Neuts (auto) Absolute Nucleated RBC Nucleated RBC % PT INR APTT VBG pH VBG pCO2 VBG pO2 VBG HCO3 O2 Delivery Device O2 Liters/Min FiO2 Sodium Potassium Chloride Carbon Dioxide Anion Gap BUN Creatinine Estim Creat Clear Calc Estimated GFR Glucose POC Capillary Glucose > 500 H* > 500 H* > 500 H* Lactic Acid Calcium Magnesium Total Bilirubin AST ALT Alkaline Phosphatase Troponin I NT-Pro-B Natriuret Pep Total Protein Albumin Procalcitonin Nasal MRSA (PCR) Influenza A (RT-PCR) Influenza B (RT-PCR) RSV (RT-PCR) SARS-CoV-2 RNA (RT-PCR) 08/31/24 08/31/24 08/31/24 20:27 21:18 22:13 WBC RBC Hgb Hct MCV MCH MCHC RDW Plt Count MPV Immature Gran % (Auto) Neut % (Auto) Lymph % (Auto) [place] % (Auto) Eos % (Auto) Baso % (Auto) Lymph # (Auto) [place] # (Auto) Eos # (Auto) Baso # (Auto) Abs Immat Gran (auto) Absolute Neuts (auto) Absolute Nucleated RBC Nucleated RBC % PT INR APTT VBG pH VBG pCO2 VBG pO2 VBG HCO3 O2 Delivery Device O2 Liters/Min FiO2 Sodium 127 L Potassium 4.0 Chloride 91 L Carbon Dioxide 20 L Anion Gap 16 H BUN 80 H Creatinine 8.47 H Estim Creat Clear Calc 12 Estimated GFR 7 L Glucose 505 H* POC Capillary Glucose 445 H 448 H Lactic Acid Calcium 8.4 Magnesium Total Bilirubin AST ALT Alkaline Phosphatase Troponin I NT-Pro-B Natriuret Pep Total Protein Albumin Procalcitonin Nasal MRSA (PCR) Influenza A (RT-PCR) Influenza B (RT-PCR) RSV (RT-PCR) SARS-CoV-2 RNA (RT-PCR) 08/31/24 09/01/24 09/01/24 23:10 00:11 00:54 WBC RBC Hgb Hct MCV MCH MCHC RDW Plt Count MPV Immature Gran % (Auto) Neut % (Auto) Lymph % (Auto) [place] % (Auto) Eos % (Auto) Baso % (Auto) Lymph # (Auto) [place] # (Auto) Eos # (Auto) Baso # (Auto) Abs Immat Gran (auto) Absolute Neuts (auto) Absolute Nucleated RBC Nucleated RBC % PT INR APTT VBG pH VBG pCO2 VBG pO2 VBG HCO3 O2 Delivery Device O2 Liters/Min FiO2 Sodium 129 L Potassium 3.4 Chloride 92 L Carbon Dioxide 24 Anion Gap 13 H BUN 76 H Creatinine 8.32 H Estim Creat Clear Calc 12 Estimated GFR 7 L Glucose 320 H POC Capillary Glucose 411 H 396 H Lactic Acid Calcium 8.8 Magnesium Total Bilirubin AST ALT Alkaline Phosphatase Troponin I NT-Pro-B Natriuret Pep Total Protein Albumin Procalcitonin Nasal MRSA (PCR) Influenza A (RT-PCR) Influenza B (RT-PCR) RSV (RT-PCR) SARS-CoV-2 RNA (RT-PCR) 09/01/24 09/01/24 09/01/24 01:09 02:02 03:16 WBC RBC Hgb Hct MCV MCH MCHC RDW Plt Count MPV Immature Gran % (Auto) Neut % (Auto) Lymph % (Auto) [place] % (Auto) Eos % (Auto) Baso % (Auto) Lymph # (Auto) [place] # (Auto) Eos # (Auto) Baso # (Auto) Abs Immat Gran (auto) Absolute Neuts (auto) Absolute Nucleated RBC Nucleated RBC % PT INR APTT VBG pH VBG pCO2 VBG pO2 VBG HCO3 O2 Delivery Device O2 Liters/Min FiO2 Sodium Potassium Chloride Carbon Dioxide Anion Gap BUN Creatinine Estim Creat Clear Calc Estimated GFR Glucose POC Capillary Glucose 306 H 262 H 169 H Lactic Acid Calcium Magnesium Total Bilirubin AST ALT Alkaline Phosphatase Troponin I NT-Pro-B Natriuret Pep Total Protein Albumin Procalcitonin Nasal MRSA (PCR) Influenza A (RT-PCR) Influenza B (RT-PCR) RSV (RT-PCR) SARS-CoV-2 RNA (RT-PCR) 09/01/24 09/01/24 09/01/24 04:15 04:24 04:39 WBC 6.6 RBC 3.45 L Hgb 10.5 L Hct 32.2 L MCV 93.3 D MCH 30.4 MCHC 32.6 RDW 15.1 H Plt Count 181 MPV 10.1 Immature Gran % (Auto) 0.3 Neut % (Auto) 60.4 Lymph % (Auto) 17.9 L [place] % (Auto) 17.6 H Eos % (Auto) 3.3 Baso % (Auto) 0.5 Lymph # (Auto) 1.18 [place] # (Auto) 1.2 H Eos # (Auto) 0.2 Baso # (Auto) 0.0 Abs Immat Gran (auto) 0.02 Absolute Neuts (auto) 4.0 Absolute Nucleated RBC 0.000 Nucleated RBC % 0.0 PT 26.6 H D INR 2.4 APTT VBG pH VBG pCO2 VBG pO2 VBG HCO3 O2 Delivery Device O2 Liters/Min FiO2 Sodium 131 L Potassium 3.3 L Chloride 96 L Carbon Dioxide 24 Anion Gap 11 BUN 73 H Creatinine 8.29 H Estim Creat Clear Calc 12 Estimated GFR 7 L Glucose 95 POC Capillary Glucose 88 72 Lactic Acid Calcium 9.0 Magnesium 2.3 Total Bilirubin 0.4 AST 27 ALT 29 Alkaline Phosphatase 70 Troponin I NT-Pro-B Natriuret Pep Total Protein 6.0 L Albumin 3.5 Procalcitonin Nasal MRSA (PCR) Influenza A (RT-PCR) Influenza B (RT-PCR) RSV (RT-PCR) SARS-CoV-2 RNA (RT-PCR) 09/01/24 09/01/24 09/01/24 05:01 05:21 06:10 WBC RBC Hgb Hct MCV MCH MCHC RDW Plt Count MPV Immature Gran % (Auto) Neut % (Auto) Lymph % (Auto) [place] % (Auto) Eos % (Auto) Baso % (Auto) Lymph # (Auto) [place] # (Auto) Eos # (Auto) Baso # (Auto) Abs Immat Gran (auto) Absolute Neuts (auto) Absolute Nucleated RBC Nucleated RBC % PT INR APTT VBG pH VBG pCO2 VBG pO2 VBG HCO3 O2 Delivery Device O2 Liters/Min FiO2 Sodium Potassium Chloride Carbon Dioxide Anion Gap BUN Creatinine Estim Creat Clear Calc Estimated GFR Glucose POC Capillary Glucose 48 L* 118 H 66 Lactic Acid Calcium Magnesium Total Bilirubin AST ALT Alkaline Phosphatase Troponin I NT-Pro-B Natriuret Pep Total Protein Albumin Procalcitonin Nasal MRSA (PCR) Influenza A (RT-PCR) Influenza B (RT-PCR) RSV (RT-PCR) SARS-CoV-2 RNA (RT-PCR) 09/01/24 09/01/24 09/01/24 06:24 06:51 07:34 WBC RBC Hgb Hct MCV MCH MCHC RDW Plt Count MPV Immature Gran % (Auto) Neut % (Auto) Lymph % (Auto) [place] % (Auto) Eos % (Auto) Baso % (Auto) Lymph # (Auto) [place] # (Auto) Eos # (Auto) Baso # (Auto) Abs Immat Gran (auto) Absolute Neuts (auto) Absolute Nucleated RBC Nucleated RBC % PT INR APTT VBG pH VBG pCO2 VBG pO2 VBG HCO3 O2 Delivery Device O2 Liters/Min FiO2 Sodium Potassium Chloride Carbon Dioxide Anion Gap BUN Creatinine Estim Creat Clear Calc Estimated GFR Glucose POC Capillary Glucose 140 H 112 H 108 H Lactic Acid Calcium Magnesium Total Bilirubin AST ALT Alkaline Phosphatase Troponin I NT-Pro-B Natriuret Pep Total Protein Albumin Procalcitonin Nasal MRSA (PCR) Influenza A (RT-PCR) Influenza B (RT-PCR) RSV (RT-PCR) SARS-CoV-2 RNA (RT-PCR) 09/01/24 09/01/24 09/01/24 08:13 08:35 08:59 WBC RBC Hgb Hct MCV MCH MCHC RDW Plt Count MPV Immature Gran % (Auto) Neut % (Auto) Lymph % (Auto) [place] % (Auto) Eos % (Auto) Baso % (Auto) Lymph # (Auto) [place] # (Auto) Eos # (Auto) Baso # (Auto) Abs Immat Gran (auto) Absolute Neuts (auto) Absolute Nucleated RBC Nucleated RBC % PT INR APTT VBG pH VBG pCO2 VBG pO2 VBG HCO3 O2 Delivery Device O2 Liters/Min FiO2 Sodium 130 L Potassium 3.9 Chloride 96 L Carbon Dioxide 25 Anion Gap 9 BUN 74 H Creatinine 8.27 H Estim Creat Clear Calc 12 Estimated GFR 7 L Glucose 100 POC Capillary Glucose 115 H 115 H Lactic Acid Calcium 8.7 Magnesium Total Bilirubin AST ALT Alkaline Phosphatase Troponin I NT-Pro-B Natriuret Pep Total Protein Albumin Procalcitonin Nasal MRSA (PCR) Influenza A (RT-PCR) Influenza B (RT-PCR) RSV (RT-PCR) SARS-CoV-2 RNA (RT-PCR) Quality VTE Prophylaxis VTE prophylaxis: mechanical ordered
[2024-09-01] MEDS: ASPIRIN 81 MG CHEWABLE TABLET PO (09:52)
[2024-09-01] MEDS: calcitrioL 0.25 MCG CAPSULE PO (09:53)
[2024-09-01] MEDS: PANTOPRAZOLE 40 MG TABLET PO (09:53)
[2024-09-01] MEDS: ATORVASTATIN 40 MG TABLET 80 MG PO (09:53)
[2024-09-01] MEDS: CALCIUM ACETATE 667 MG TABLET PO ×4 (09:53→21:38)
[2024-09-01] MEDS: TAMSULOSIN HCL 0.4 MG CAPSULE PO ×2 (09:53→18:17)
[2024-09-01] MEDS: EZETIMIBE 10 MG TABLET PO (09:57)
[2024-09-01 09:59] LABS: Glucose Point of Care 158 mg/dl (65-105)
[2024-09-01] MEDS: PHENYLEPHRINE HCL INJ 50 MG in DEXTROSE 5% IN WATER 250 ML/245 ML BAG 12 ML IV CONT (10:24)
[2024-09-01 10:59] LABS: Glucose Point of Care 204 mg/dl (65-105)
[2024-09-01 11:55] LABS: Glucose Point of Care 255 mg/dl (65-105)
[2024-09-01] MEDS: INSULIN ASPART (*BKC) 100 UNITS/ML SUB-Q ×3 (12:23→21:43)
[2024-09-01 12:34] LABS: Anion Gap 11 mmol/L (4-12); Blood Urea Nitrogen 74 mg/dL (9-20); Calcium 8.8 mg/dL (8.4-10.2); Carbon Dioxide 22 mmol/L (22-30); Chloride 95 mmol/L (98-107); Estimated CRCL calculation 12 ml/min; Estimated Glomerular Filt Rate 6; Glucose 241 mg/dL (65-110); Potassium 4.8 mmol/L (3.4-5.0); Sodium 128 mmol/L (137-145)
[2024-09-01] MEDS: AZITHROMYCIN 500 MG/NS 250 ML 500 MG/250 ML BAG 250 MG IVPB (13:44)
[2024-09-01] MEDS: INSULIN GLARGINE (*BKC) 100 UNITS/ML 30 UNITS SUB-Q (13:53)
--- NOTE | 2024-09-01 14:08 | PM.CNGS ---
Assessment and Plan Assessment and plan (1) Cholelithiasis: Qualifiers: Cholelithiasis location: gallbladder Cholecystitis presence: without cholecystitis Biliary obstruction: without biliary obstruction Qualified Code(s): K80.20 - Calculus of gallbladder without cholecystitis without obstruction Code(s): K80.20 - Calculus of gallbladder without cholecystitis without obstruction Status: Acute Assessment and Plan: I have reviewed the imaging and assessed the patient. He does have some tenderness in the right upper quadrant, but imaging and lab findings do not suggest cholecystitis. Would recommend low-fat diet. He has multiple comorbidities making surgical intervention extremely high risk at this facility. I would not recommend surgical intervention except for true emergent basis. If he were to require surgery, he would be better suited at a tertiary care facility due to his very low cardiac ejection fraction and other medical issues. Will sign off. 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 Status: Acute (5) Congestive heart failure: Qualifiers: Heart failure chronicity: acute on chronic Heart failure type: unspecified Qualified Code(s): I50.9 - Heart failure, unspecified Code(s): I50.9 - Heart failure, unspecified Status: Acute (6) ESRD on peritoneal dialysis: Code(s): N18.6 - End stage renal disease; Z99.2 - Dependence on renal dialysis Status: Acute History of Present Illness Consult details Consult date: 09/01/24 Reason for consult: other (Possible cholecystitis) Requesting physician: Fernando Schmid MD Narrative: This is a 54-year-old man who I am asked to see for cholelithiasis with possible cholecystitis. He presented to the emergency department with diabetic ketoacidosis. He was admitted yesterday with a blood sugar over 900 and lactate level of 4.1. His BNP was also greater than 23,000. He has been complaining of right upper quadrant abdominal pain. This has been present since his last admission less than [address] during his last admission showed evidence of cholelithiasis without signs of cholecystitis. A gallbladder ultrasound was then obtained today which showed evidence of cholelithiasis without any finding suggesting cholecystitis. The patient has noticed fried foods cause him worsening pain in past. Currently he has a normal white blood count and normal liver enzymes. The patient has multiple comorbidities including congestive heart failure and echocardiogram less than 1 year ago showed a left ventricular ejection fraction 20-25%. He also has end-stage renal disease and is on peritoneal dialysis. His diabetes also has been very poorly controlled at times. Review of Systems Review of Systems: All systems reviewed & are unremarkable except as noted in HPI and below Eyes: Eyes: Denies change in vision ENT: Denies hearing loss, Denies neck pain and Denies sore throat Cardiovascular: Cardiovascular: Denies chest pain, Reports dyspnea on exertion and Reports orthopnea Respiratory: Respiratory: Denies cough and Denies wheezing Gastrointestinal: Gastrointestinal: Reports as per HPI Genitourinary: Genitourinary: Denies hematuria and Denies dysuria Musculoskeletal: Musculoskeletal: Denies arthralgias, Denies joint swelling and Denies neck pain Allergic/Immunologic: Allergic/Immunologic: Denies wheezing PMFSH Past Medical History Medical History Chronic back pain Hematuria Right hand dominant Insulin dependent diabetes mellitus Chronic anticoagulation Paroxysmal atrial fibrillation Renal osteodystrophy Seizure X1 with etiology unknown End-stage renal disease on peritoneal dialysis Essential hypertension Gout Deep venous thrombosis Chronic right popliteal DVT. Coronary artery disease History of several stents including complex procedure at [facility]/ stenting of a heavily calcified CX on OM using shockwave treatment. Gastroesophageal reflux disease Congestive heart failure Echocardiogram May 2017 EF of 50% with hypokinetic apical, inferior and basal inferior lateral segment, mild enlargement of left atrium. Anemia in chronic kidney disease Type 1 diabetes mellitus Onset around age 13. Diabetic retinopathy Diabetic peripheral neuropathy Obstructive sleep apnea With inconsistent CPAP use. Secondary hyperparathyroidism of renal origin Anxiety Arthritis Hyperlipidemia Surgical History Surgical History S/P triple vessel bypass Sep 2023; [facility] History of coronary angioplasty with insertion of stent Drug-eluting stents for high-grade OM 99% occlusion 05/2022. History of hernia repair Peritoneal dialysis catheter in place History of cataract extraction With lens implant History of open reduction and internal fixation (ORIF) procedure (1982) Left lower extremity fracture. And the right hip pinning when he was in the 8th grade History of arthroscopy of left knee History of anterior cruciate ligament surgery (2000) Left knee History of bilateral carpal tunnel release Right 05/03/2018. Left 06/02/2018. History of appendectomy (2006) History of cardiac catheterization 01/21/2021 catheterization at [facility], Dr. Hoover done: Little change from prior catheterization. Patent stents in the RCA and PDA. Previously jailed posterolateral is occluded and development of a 50% stenosis of a branch of om 1. Normal LV function. :August 2019 demonstrated patent stents with 40% stenosis of 1 vessel with no stents or angioplasty performed per patient report. :November 2018 at [facility] - stent x3. :March 2017 demonstrating mild diffuse coronary disease 80% lesion small sub branch of obtuse marginal 1 and 90% stenosis distal RCA into the origin of the PDA with PTCA and stent to the RPDA/distal RCA performed by Dr. Petit. Family History Family History Father , in his late 60s Acute myocardial infarction Premature coronary artery disease; <65yo CHF (congestive heart failure) Dementia Hypertension S/P triple vessel bypass 1980s Mother Lung cancer Hypertension Daughter Celiac disease Social History Social History Social History: Surrogate medical decision maker: Hodan Daigle (daughter) or Lorne Daigle (brother). Code status: Full code. Smoking status: Never smoker Second hand tobacco smoke exposure: No Alcohol intake: never Substance use: never Substance use type: does not use Do You Feel Safe in your Home?: Yes Lack of Transportation: No Lack of Food: Never True Current Housing: I Have Housing Concerned About Future Housing: No Difficulty Paying Gas/Electric Bills: No Difficulty Paying for Meds: No Currently Unemployed: No Education: Decline to Answer Difficulty w/ Childcare or Family Care: No Living arrangements: alone Additional living arrangements comments: He is single and has 3 children. 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 Spiritual care concerns: No Agree to blood products: Yes Meds Home Medications and Allergies Home Medications ?Medication ?Instructions ?Recorded ?Confirmed ?Type calcitriol 0.25 mcg capsule 0.25 mcg PO QAM 06/04/19 08/31/24 History ergocalciferol (vitamin D2) 1,250 50,000 unit PO WEEKLY 06/04/19 08/31/24 History mcg (50,000 unit) capsule (Vitamin D2) nitroglycerin 0.4 mg sublingual 0.4 mg sublingual Q5-15M PRN Chest 06/04/19 08/31/24 History tablet Pain ezetimibe 10 mg tablet (Zetia) 10 mg PO DAILY 09/09/19 08/31/24 History cetirizine 10 mg tablet (All Day 10 mg PO DAILY 12/26/19 08/31/24 History Allergy (cetirizine)) atorvastatin 80 mg tablet 80 mg PO DAILY 11/26/20 08/31/24 History albuterol sulfate 90 mcg/actuation 1 inh inhalation QID PRN shortness 01/12/23 08/31/24 Rx aerosol inhaler (ProAir HFA) of breath or wheezing #8.5 grams potassium chloride 20 mEq 20 meq PO DAILY Cramps 05/20/23 08/31/24 History tablet,extended release febuxostat 40 mg tablet 40 mg PO QPM 07/25/23 08/31/24 History gemfibrozil 600 mg tablet 600 mg PO Q12H 07/25/23 08/31/24 History linaclotide 72 mcg capsule 72 mcg PO DAILY PRN Diarrhea 07/25/23 08/31/24 History (Linzess) icosapent ethyl 1 gram capsule 1 g PO QID 02/16/24 08/31/24 History (Vascepa) torsemide 100 mg tablet 100 mg PO DAILY 02/16/24 08/31/24 History warfarin 3 mg tablet 3 mg PO DAILY #30 tabs 03/01/24 08/31/24 Rx insulin pump cart,automated,BT #45 ea 05/16/24 08/31/24 Rx (Omnipod 5 G6 Pods (Gen 5) subcutaneous cartridge) levothyroxine 25 mcg tablet 25 mcg PO DAILY #90 tabs 05/16/24 08/31/24 Rx omeprazole 20 mg capsule,delayed 20 mg PO DAILY 06/06/24 08/31/24 History release amlodipine 10 mg tablet 10 mg PO HS 07/30/24 08/31/24 History calcium acetate(phosphat bind) 667 667 mg PO QID 07/30/24 08/31/24 History mg capsule erythromycin 5 mg/gram (0.5 %) eye 1 applic EACH EYE HS 07/30/24 08/31/24 History ointment glucagon 1 mg/0.2 mL subcutaneous See Rx Instructions .Route 07/30/24 08/31/24 History auto-injector (Gvoke HypoPen .COMPLEX PRN Hypoglycemia 2-Pack) insulin aspart U-100 100 unit/mL 5 unit (0.05 mL) subcut TIDWMEAL 08/02/24 08/31/24 Rx (3 mL) subcutaneous pen (Novolog #15 mL FlexPen U-100 Insulin aspart) pen needle, diabetic 32 gauge x #100 ea 08/05/24 08/31/24 Rx 5/32 (BD Lucrecia 2nd Gen Pen Needle) cyclobenzaprine 10 mg tablet 5 - 10 mg (0.5 - 1 x 10 mg) PO TID 08/11/24 08/31/24 Rx PRN muscle spasm #10 tabs famotidine 40 mg tablet 40 mg PO HS 08/17/24 08/31/24 History lidocaine 5 % topical patch 1 patch transdermal Q24H 08/17/24 08/31/24 History metoprolol succinate 25 mg 50 mg PO DAILY 08/17/24 08/31/24 History tablet,extended release 24 hr aspirin 81 mg capsule 81 mg PO DAILY 08/31/24 08/31/24 History colchicine 0.6 mg capsule 0.6 mg PO 3XW 08/31/24 08/31/24 History cyclosporine 0.05 % eye drops in a 1 drp EACH EYE Q12H 08/31/24 08/31/24 History dropperette gentamicin 0.1 % topical cream 1 applic topical HS 08/31/24 08/31/24 History tamsulosin 0.4 mg capsule 0.4 mg PO BID 08/31/24 08/31/24 History valacyclovir 500 mg tablet 500 mg PO Q12H 08/31/24 08/31/24 History Allergies Allergy/AdvReac Type Severity Reaction Status Date / Time allopurinol Allergy Severe Other Verified 08/17/24 08:24 iodine Allergy Severe Rash Verified 08/17/24 08:24 iohexol (From CONTRAST - CT, Allergy Severe Difficulty Verified 08/17/24 08:24 XRAY) Breathing ticagrelor Allergy Intermediate Rash Verified 08/17/24 08:24 Vital Signs Vital Signs - 24 hr 08/31/24 14:58 08/31/24 16:00 08/31/24 16:32 Temperature 97.8 F Pulse Rate 98 109 H 108 H Respiratory Rate 16 20 Blood Pressure 117/93 H 124/66 Pulse Oximetry 96 97 Oxygen Delivery Oxygen Flow Rate Fraction of Inspired Oxygen 08/31/24 17:43 08/31/24 17:48 08/31/24 18:00 Temperature Pulse Rate 108 H Respiratory Rate Blood Pressure Pulse Oximetry 90 Oxygen Delivery Nasal Cannula Oxygen Flow Rate 2 2 Fraction of Inspired Oxygen 08/31/24 18:00 08/31/24 20:00 08/31/24 20:00 Temperature 97.6 F Pulse Rate 108 H 109 H 109 H Respiratory Rate 18 16 Blood Pressure 132/62 146/79 H Pulse Oximetry 96 95 Oxygen Delivery Oxygen Flow Rate Fraction of Inspired Oxygen 08/31/24 22:00 08/31/24 22:00 09/01/24 00:00 Temperature 97.4 F L Pulse Rate 109 H 108 H 109 H Respiratory Rate 17 14 Blood Pressure 128/65 111/70 Pulse Oximetry 96 96 Oxygen Delivery Oxygen Flow Rate Fraction of Inspired Oxygen 09/01/24 00:00 09/01/24 00:00 09/01/24 02:00 Temperature Pulse Rate 109 H 110 H Respiratory Rate 19 Blood Pressure 92/57 L Pulse Oximetry 96 94 Oxygen Delivery Nasal Cannula Oxygen Flow Rate 2 Fraction of Inspired Oxygen 09/01/24 02:00 09/01/24 04:00 09/01/24 04:00 Temperature 97.2 F L Pulse Rate 115 H 108 H Respiratory Rate 17 Blood Pressure 91/65 L Pulse Oximetry 96 96 Oxygen Delivery Nasal Cannula Oxygen Flow Rate 2 Fraction of Inspired Oxygen 09/01/24 04:00 09/01/24 05:00 09/01/24 05:24 Temperature Pulse Rate 110 H 105 H Respiratory Rate 16 Blood Pressure 86/56 L Pulse Oximetry 94 Oxygen Delivery Autopap Oxygen Flow Rate Fraction of Inspired Oxygen 09/01/24 06:00 09/01/24 06:00 09/01/24 07:00 Temperature Pulse Rate 114 H 111 H 108 H Respiratory Rate 15 21 H Blood Pressure 78/56 L 86/56 L Pulse Oximetry 93 94 Oxygen Delivery Oxygen Flow Rate Fraction of Inspired Oxygen 09/01/24 07:55 09/01/24 08:35 09/01/24 08:47 Temperature 97.5 F L 97.5 F L Pulse Rate 114 H 112 H Respiratory Rate 15 17 Blood Pressure 84/57 L 80/51 L Pulse Oximetry 94 95 Oxygen Delivery Nasal Cannula Oxygen Flow Rate 2 2 Fraction of Inspired Oxygen 28 09/01/24 09:38 09/01/24 10:24 09/01/24 12:00 Temperature 98.4 F Pulse Rate 112 H 112 H 109 H Respiratory Rate 16 16 Blood Pressure 94/64 L 86/54 L 100/60 Pulse Oximetry 95 96 Oxygen Delivery Oxygen Flow Rate Fraction of Inspired Oxygen 09/01/24 13:44 Temperature Pulse Rate 112 H Respiratory Rate 18 Blood Pressure 110/69 Pulse Oximetry 94 Oxygen Delivery Oxygen Flow Rate Fraction of Inspired Oxygen Exam Const: General: alert; No acute distress Orientation/consciousness: patient oriented x3 Limitations: no limitations HENMT: Head: normocephalic and atraumatic Ears: hearing grossly normal bilaterally Face/Nose/Sinus: Normal external nose present and Normal nares present Mouth: Yes Normal oral and palatal mucosa present and Yes moist mucous membranes Eyes: General: appearance normal, both eyes and all related structures Conjunctivae: conjunctivae normal Sclera: sclerae normal Pupils: Equal, round and reactive pupils present EOM: EOMs intact bilaterally Neck: Neck: normal visual inspection, full ROM, no lymphadenopathy, supple and no JVD Lymphatic: no lymphadenopathy noted Chest: Chest palpation & inspection: normal inspection of the chest Resp: Effort & Inspection: normal respiratory effort and able to speak in complete sentences Auscultation: clear to auscultation bilaterally Percussion: percussion normal Cardio: Jugular venous distension: no JVD Rate: regular rate Rhythm: regular rhythm Heart sounds: S1 normal heart sound present and S2 normal heart sound present Peripheral pulses: Peripheral pulses 2+ throughout GI: Inspection: normal to inspection Auscultation: normal bowel sounds : General: Yes no CVA tenderness Back/Spine/Pelvis: Back: no CVA tenderness Skin: General skin exam: normal color and dry skin Neuro: General: patient oriented x3, gait normal, moves all extremities, no focal motor deficits and CN's II-XI intact bilaterally Cranial nerves: Yes Equal, round and reactive pupils present Speech: normal speech Extrem: General: normal to inspection and capillary refill normal Results Labs 09/01/24 04:24 09/01/24 12:17 Labs: Abnormal lab results 08/31/24 08/31/24 08/31/24 Range/Units 14:51 15:53 16:20 RBC (4.6-6.20) M/mm3 Hgb (14.0-18.0) g/dL Hct (42.0-52.0) % RDW (11.5-14.5) % Lymph % (Auto) (18.3-44.2) % [place] % (Auto) (2.6-8.5) % [place] # (Auto) (0.1-0.6) K/mm3 PT (11.1-14.7) Seconds Sodium 124 L (137-145) mmol/L Potassium (3.4-5.0) mmol/L Chloride 89 L (98-107) mmol/L Carbon Dioxide 11 L (22-30) mmol/L Anion Gap 24 H (4-12) mmol/L BUN 76 H (9-20) mg/dL Creatinine 8.87 H (0.7-1.3) mg/dL Estimated GFR 6 L (59 - ) Glucose 686 H* (65-110) mg/dL POC Capillary Glucose > 500 H* > 500 H* (65-105) mg/dl Lactic Acid 3.9 H (0.7-2.0) mmol/L Total Protein (6.3-8.2) g/dL 08/31/24 08/31/24 08/31/24 Range/Units 18:07 18:56 20:06 RBC (4.6-6.20) M/mm3 Hgb (14.0-18.0) g/dL Hct (42.0-52.0) % RDW (11.5-14.5) % Lymph % (Auto) (18.3-44.2) % [place] % (Auto) (2.6-8.5) % [place] # (Auto) (0.1-0.6) K/mm3 PT (11.1-14.7) Seconds Sodium (137-145) mmol/L Potassium (3.4-5.0) mmol/L Chloride (98-107) mmol/L Carbon Dioxide (22-30) mmol/L Anion Gap (4-12) mmol/L BUN (9-20) mg/dL Creatinine (0.7-1.3) mg/dL Estimated GFR (59 - ) Glucose (65-110) mg/dL POC Capillary Glucose > 500 H* > 500 H* > 500 H* (65-105) mg/dl Lactic Acid (0.7-2.0) mmol/L Total Protein (6.3-8.2) g/dL 08/31/24 08/31/24 08/31/24 Range/Units 20:27 21:18 22:13 RBC (4.6-6.20) M/mm3 Hgb (14.0-18.0) g/dL Hct (42.0-52.0) % RDW (11.5-14.5) % Lymph % (Auto) (18.3-44.2) % [place] % (Auto) (2.6-8.5) % [place] # (Auto) (0.1-0.6) K/mm3 PT (11.1-14.7) Seconds Sodium 127 L (137-145) mmol/L Potassium (3.4-5.0) mmol/L Chloride 91 L (98-107) mmol/L Carbon Dioxide 20 L (22-30) mmol/L Anion Gap 16 H (4-12) mmol/L BUN 80 H (9-20) mg/dL Creatinine 8.47 H (0.7-1.3) mg/dL Estimated GFR 7 L (59 - ) Glucose 505 H* (65-110) mg/dL POC Capillary Glucose 445 H 448 H (65-105) mg/dl Lactic Acid (0.7-2.0) mmol/L Total Protein (6.3-8.2) g/dL 08/31/24 09/01/24 09/01/24 Range/Units 23:10 00:11 00:54 RBC (4.6-6.20) M/mm3 Hgb (14.0-18.0) g/dL Hct (42.0-52.0) % RDW (11.5-14.5) % Lymph % (Auto) (18.3-44.2) % [place] % (Auto) (2.6-8.5) % [place] # (Auto) (0.1-0.6) K/mm3 PT (11.1-14.7) Seconds Sodium 129 L (137-145) mmol/L Potassium (3.4-5.0) mmol/L Chloride 92 L (98-107) mmol/L Carbon Dioxide (22-30) mmol/L Anion Gap 13 H (4-12) mmol/L BUN 76 H (9-20) mg/dL Creatinine 8.32 H (0.7-1.3) mg/dL Estimated GFR 7 L (59 - ) Glucose 320 H (65-110) mg/dL POC Capillary Glucose 411 H 396 H (65-105) mg/dl Lactic Acid (0.7-2.0) mmol/L Total Protein (6.3-8.2) g/dL 09/01/24 09/01/24 09/01/24 Range/Units 01:09 02:02 03:16 RBC (4.6-6.20) M/mm3 Hgb (14.0-18.0) g/dL Hct (42.0-52.0) % RDW (11.5-14.5) % Lymph % (Auto) (18.3-44.2) % [place] % (Auto) (2.6-8.5) % [place] # (Auto) (0.1-0.6) K/mm3 PT (11.1-14.7) Seconds Sodium (137-145) mmol/L Potassium (3.4-5.0) mmol/L Chloride (98-107) mmol/L Carbon Dioxide (22-30) mmol/L Anion Gap (4-12) mmol/L BUN (9-20) mg/dL Creatinine (0.7-1.3) mg/dL Estimated GFR (59 - ) Glucose (65-110) mg/dL POC Capillary Glucose 306 H 262 H 169 H (65-105) mg/dl Lactic Acid (0.7-2.0) mmol/L Total Protein (6.3-8.2) g/dL 09/01/24 09/01/24 09/01/24 Range/Units 04:24 05:01 05:21 RBC 3.45 L (4.6-6.20) M/mm3 Hgb 10.5 L (14.0-18.0) g/dL Hct 32.2 L (42.0-52.0) % RDW 15.1 H (11.5-14.5) % Lymph % (Auto) 17.9 L (18.3-44.2) % [place] % (Auto) 17.6 H (2.6-8.5) % [place] # (Auto) 1.2 H (0.1-0.6) K/mm3 PT 26.6 H D (11.1-14.7) Seconds Sodium 131 L (137-145) mmol/L Potassium 3.3 L (3.4-5.0) mmol/L Chloride 96 L (98-107) mmol/L Carbon Dioxide (22-30) mmol/L Anion Gap (4-12) mmol/L BUN 73 H (9-20) mg/dL Creatinine 8.29 H (0.7-1.3) mg/dL Estimated GFR 7 L (59 - ) Glucose (65-110) mg/dL POC Capillary Glucose 48 L* 118 H (65-105) mg/dl Lactic Acid (0.7-2.0) mmol/L Total Protein 6.0 L (6.3-8.2) g/dL 09/01/24 09/01/24 09/01/24 Range/Units 06:24 06:51 07:34 RBC (4.6-6.20) M/mm3 Hgb (14.0-18.0) g/dL Hct (42.0-52.0) % RDW (11.5-14.5) % Lymph % (Auto) (18.3-44.2) % [place] % (Auto) (2.6-8.5) % [place] # (Auto) (0.1-0.6) K/mm3 PT (11.1-14.7) Seconds Sodium (137-145) mmol/L Potassium (3.4-5.0) mmol/L Chloride (98-107) mmol/L Carbon Dioxide (22-30) mmol/L Anion Gap (4-12) mmol/L BUN (9-20) mg/dL Creatinine (0.7-1.3) mg/dL Estimated GFR (59 - ) Glucose (65-110) mg/dL POC Capillary Glucose 140 H 112 H 108 H (65-105) mg/dl Lactic Acid (0.7-2.0) mmol/L Total Protein (6.3-8.2) g/dL 09/01/24 09/01/24 09/01/24 Range/Units 08:13 08:35 08:59 RBC (4.6-6.20) M/mm3 Hgb (14.0-18.0) g/dL Hct (42.0-52.0) % RDW (11.5-14.5) % Lymph % (Auto) (18.3-44.2) % [place] % (Auto) (2.6-8.5) % [place] # (Auto) (0.1-0.6) K/mm3 PT (11.1-14.7) Seconds Sodium 130 L (137-145) mmol/L Potassium (3.4-5.0) mmol/L Chloride 96 L (98-107) mmol/L Carbon Dioxide (22-30) mmol/L Anion Gap (4-12) mmol/L BUN 74 H (9-20) mg/dL Creatinine 8.27 H (0.7-1.3) mg/dL Estimated GFR 7 L (59 - ) Glucose (65-110) mg/dL POC Capillary Glucose 115 H 115 H (65-105) mg/dl Lactic Acid (0.7-2.0) mmol/L Total Protein (6.3-8.2) g/dL 09/01/24 09/01/24 09/01/24 Range/Units 09:55 10:56 11:53 RBC (4.6-6.20) M/mm3 Hgb (14.0-18.0) g/dL Hct (42.0-52.0) % RDW (11.5-14.5) % Lymph % (Auto) (18.3-44.2) % [place] % (Auto) (2.6-8.5) % [place] # (Auto) (0.1-0.6) K/mm3 PT (11.1-14.7) Seconds Sodium (137-145) mmol/L Potassium (3.4-5.0) mmol/L Chloride (98-107) mmol/L Carbon Dioxide (22-30) mmol/L Anion Gap (4-12) mmol/L BUN (9-20) mg/dL Creatinine (0.7-1.3) mg/dL Estimated GFR (59 - ) Glucose (65-110) mg/dL POC Capillary Glucose 158 H 204 H 255 H (65-105) mg/dl Lactic Acid (0.7-2.0) mmol/L Total Protein (6.3-8.2) g/dL 09/01/24 Range/Units 12:17 RBC (4.6-6.20) M/mm3 Hgb (14.0-18.0) g/dL Hct (42.0-52.0) % RDW (11.5-14.5) % Lymph % (Auto) (18.3-44.2) % [place] % (Auto) (2.6-8.5) % [place] # (Auto) (0.1-0.6) K/mm3 PT (11.1-14.7) Seconds Sodium 128 L (137-145) mmol/L Potassium (3.4-5.0) mmol/L Chloride 95 L (98-107) mmol/L Carbon Dioxide (22-30) mmol/L Anion Gap (4-12) mmol/L BUN 74 H (9-20) mg/dL Creatinine 8.71 H (0.7-1.3) mg/dL Estimated GFR 6 L (59 - ) Glucose 241 H (65-110) mg/dL POC Capillary Glucose (65-105) mg/dl Lactic Acid (0.7-2.0) mmol/L Total Protein (6.3-8.2) g/dL Diabetes panel 08/31/24 08/31/24 09/01/24 Range/Units 16:20 20:27 00:54 Sodium 124 L 127 L 129 L (137-145) mmol/L Potassium 4.6 4.0 3.4 (3.4-5.0) mmol/L Chloride 89 L 91 L 92 L (98-107) mmol/L Carbon Dioxide 11 L 20 L 24 (22-30) mmol/L BUN 76 H 80 H 76 H (9-20) mg/dL Creatinine 8.87 H 8.47 H 8.32 H (0.7-1.3) mg/dL Glucose 686 H* 505 H* 320 H (65-110) mg/dL Calcium 8.6 8.4 8.8 (8.4-10.2) mg/dL AST (17-59) U/L ALT (6-50) U/L Alkaline Phosphatase (38-126) U/L Total Protein (6.3-8.2) g/dL Albumin (3.5-5.1) g/dL 09/01/24 09/01/24 09/01/24 Range/Units 04:24 08:13 12:17 Sodium 131 L 130 L 128 L (137-145) mmol/L Potassium 3.3 L 3.9 4.8 (3.4-5.0) mmol/L Chloride 96 L 96 L 95 L (98-107) mmol/L Carbon Dioxide 24 25 22 (22-30) mmol/L BUN 73 H 74 H 74 H (9-20) mg/dL Creatinine 8.29 H 8.27 H 8.71 H (0.7-1.3) mg/dL Glucose 95 100 241 H (65-110) mg/dL Calcium 9.0 8.7 8.8 (8.4-10.2) mg/dL AST 27 (17-59) U/L ALT 29 (6-50) U/L Alkaline Phosphatase 70 (38-126) U/L Total Protein 6.0 L (6.3-8.2) g/dL Albumin 3.5 (3.5-5.1) g/dL Calcium panel 08/31/24 08/31/24 09/01/24 Range/Units 16:20 20:27 00:54 Calcium 8.6 8.4 8.8 (8.4-10.2) mg/dL Albumin (3.5-5.1) g/dL 09/01/24 09/01/24 09/01/24 Range/Units 04:24 08:13 12:17 Calcium 9.0 8.7 8.8 (8.4-10.2) mg/dL Albumin 3.5 (3.5-5.1) g/dL Pituitary panel 08/31/24 08/31/24 09/01/24 Range/Units 16:20 20:27 00:54 Sodium 124 L 127 L 129 L (137-145) mmol/L Potassium 4.6 4.0 3.4 (3.4-5.0) mmol/L Chloride 89 L 91 L 92 L (98-107) mmol/L Carbon Dioxide 11 L 20 L 24 (22-30) mmol/L BUN 76 H 80 H 76 H (9-20) mg/dL Creatinine 8.87 H 8.47 H 8.32 H (0.7-1.3) mg/dL Glucose 686 H* 505 H* 320 H (65-110) mg/dL Calcium 8.6 8.4 8.8 (8.4-10.2) mg/dL 09/01/24 09/01/24 09/01/24 Range/Units 04:24 08:13 12:17 Sodium 131 L 130 L 128 L (137-145) mmol/L Potassium 3.3 L 3.9 4.8 (3.4-5.0) mmol/L Chloride 96 L 96 L 95 L (98-107) mmol/L Carbon Dioxide 24 25 22 (22-30) mmol/L BUN 73 H 74 H 74 H (9-20) mg/dL Creatinine 8.29 H 8.27 H 8.71 H (0.7-1.3) mg/dL Glucose 95 100 241 H (65-110) mg/dL Calcium 9.0 8.7 8.8 (8.4-10.2) mg/dL Adrenal panel 08/31/24 08/31/24 09/01/24 Range/Units 16:20 20:27 00:54 Sodium 124 L 127 L 129 L (137-145) mmol/L Potassium 4.6 4.0 3.4 (3.4-5.0) mmol/L Chloride 89 L 91 L 92 L (98-107) mmol/L Carbon Dioxide 11 L 20 L 24 (22-30) mmol/L BUN 76 H 80 H 76 H (9-20) mg/dL Creatinine 8.87 H 8.47 H 8.32 H (0.7-1.3) mg/dL Glucose 686 H* 505 H* 320 H (65-110) mg/dL Calcium 8.6 8.4 8.8 (8.4-10.2) mg/dL Total Bilirubin (0.2-1.3) mg/dL AST (17-59) U/L ALT (6-50) U/L Alkaline Phosphatase (38-126) U/L Total Protein (6.3-8.2) g/dL Albumin (3.5-5.1) g/dL 09/01/24 09/01/24 09/01/24 Range/Units 04:24 08:13 12:17 Sodium 131 L 130 L 128 L (137-145) mmol/L Potassium 3.3 L 3.9 4.8 (3.4-5.0) mmol/L Chloride 96 L 96 L 95 L (98-107) mmol/L Carbon Dioxide 24 25 22 (22-30) mmol/L BUN 73 H 74 H 74 H (9-20) mg/dL Creatinine 8.29 H 8.27 H 8.71 H (0.7-1.3) mg/dL Glucose 95 100 241 H (65-110) mg/dL Calcium 9.0 8.7 8.8 (8.4-10.2) mg/dL Total Bilirubin 0.4 (0.2-1.3) mg/dL AST 27 (17-59) U/L ALT 29 (6-50) U/L Alkaline Phosphatase 70 (38-126) U/L Total Protein 6.0 L (6.3-8.2) g/dL Albumin 3.5 (3.5-5.1) g/dL All other labs normal. Imaging Additional studies: ITS Impressions Chest X-Ray 08/31/24 13:03 IMPRESSION: Patchy left mid and particularly lower lung infiltrate and/or atelectasis, increased since 08/18/2024 Small left pleural effusion Abdomen Ultrasound 09/01/24 09:21 IMPRESSION: Cholelithiasis
[2024-09-01 16:19] LABS: Anion Gap 9 mmol/L (4-12); Blood Urea Nitrogen 74 mg/dL (9-20); Calcium 8.8 mg/dL (8.4-10.2); Carbon Dioxide 24 mmol/L (22-30); Chloride 94 mmol/L (98-107); Estimated CRCL calculation 11 ml/min; Estimated Glomerular Filt Rate 6; Glucose 264 mg/dL (65-110); Potassium 4.8 mmol/L (3.4-5.0); Sodium 127 mmol/L (137-145)
[2024-09-01 16:30] LABS: Glucose Point of Care 290 mg/dl (65-105)
[2024-09-01] MEDS: WARFARIN (*PBKC) 3 MG TABLET PO (18:16)
[2024-09-01] MEDS: GENTAMICIN SULFATE 0.1% OINT 15 GM TUBE 1 APPLIC TOPICAL (18:17)
[2024-09-01 20:26] LABS: Anion Gap 13 mmol/L (4-12); Blood Urea Nitrogen 78 mg/dL (9-20); Calcium 8.5 mg/dL (8.4-10.2); Carbon Dioxide 21 mmol/L (22-30); Chloride 92 mmol/L (98-107); Estimated CRCL calculation 11 ml/min; Estimated Glomerular Filt Rate 6; Glucose 298 mg/dL (65-110); Potassium 4.8 mmol/L (3.4-5.0); Sodium 126 mmol/L (137-145)
[2024-09-01] MEDS: PHENYLEPHRINE HCL INJ 50 MG in DEXTROSE 5% IN WATER 250 ML/245 ML BAG 30 ML IV CONT (20:58)
[2024-09-01 21:56] LABS: Glucose Point of Care 322 mg/dl (65-105)
[2024-09-01 22:09] LABS: Source Peritoneal Fluid Peritoneal Fluid
[2024-09-01 22:10] LABS: Appearance Peritoneal Fluid Hazy (Clear); Color Peritoneal Fluid Yellow (Colorless); Lymphocytes Peritoneal Fluid 36 %; Mesothelial Cells Peritoneal Fluid 2 %; Neutrophils Peritoneal Fluid 5 % (0-25); Nucleated Cells Peritoneal Flu 150 /uL (0-500); RBC Peritoneal Fluid < 2000 /uL (0-10000)
[2024-09-01 22:11] LABS: Macrophages Peritoneal Fluid 57 %
[2024-09-01] MEDS: oxyCODONE HCL (*CRX) 5 MG TAB IR PO (22:36)
[2024-09-01] MEDS: LIDOCAINE 2% VISC SOLN 30 ML, ALUMINUM/MAGNESIUM/SIMETH SUSP 30 ML, diphenhydrAMINE HCl... PO (22:39)
[2024-09-02] VITALS (25 sets, daily range): BP systolic 103–120; BP diastolic 54–89; PULSE 75–116; RESP 14–111; TEMP 36.2–37.1; O2SAT 94–99
[2024-09-02 00:50] LABS: Anion Gap 12 mmol/L (4-12); Blood Urea Nitrogen 75 mg/dL (9-20); Calcium 8.7 mg/dL (8.4-10.2); Carbon Dioxide 22 mmol/L (22-30); Chloride 92 mmol/L (98-107); Estimated CRCL calculation 12 ml/min; Estimated Glomerular Filt Rate 6; Glucose 333 mg/dL (65-110); Potassium 4.3 mmol/L (3.4-5.0); Sodium 126 mmol/L (137-145)
[2024-09-02 04:02] LABS: Basophils Absolute Auto 0.1 K/mm3 (0.0-0.1); Eosinophils Absolute Auto 0.3 K/mm3 (0-0.3); Eosinophils Percent Auto 5.8 % (0-4.4); Hemoglobin 10.6 g/dL (14.0-18.0); Immature Granulocyte Absolute 0.02 K/mm3 (0.00-0.031); Immature Granulocyte Percent A 0.3 % (0-0.5); Lymphocytes Absolute Auto 1.23 K/mm3 (0.9-3.2); Lymphocytes Percent Auto 20.9 % (18.3-44.2); Mean Corpuscular HGB Conc 31.2 g/dl (32-36); Mean Corpuscular Hemoglobin 30.5 pg (26-34); Mean Platelet Volume 10.1 fl (7.4-10.4); Monocytes Absolute Auto 0.8 K/mm3 (0.1-0.6); Monocytes Percent Auto 13.2 % (2.6-8.5); Neutrophils Absolute Auto 3.5 K/mm3 (1.3-6.7); Neutrophils Percent Auto 58.8 % (45.5-73.1); Platelet Count Result 197 k/mm3 (150-375); Red Blood Count 3.47 M/mm3 (4.6-6.20); Red Cell Distribution Width 15.3 % (11.5-14.5); White Blood Count 5.9 K/mm3 (4.5-10.0)
[2024-09-02 04:17] LABS: Alanine Aminotransferase 29 U/L (6-50); Albumin Level 3.8 g/dL (3.5-5.1); Alkaline Phosphatase 77 U/L (38-126); Anion Gap 10 mmol/L (4-12); Aspartate Amino Transferase 27 U/L (17-59); Bilirubin,Total 0.5 mg/dL (0.2-1.3); Blood Urea Nitrogen 71 mg/dL (9-20); Calcium 8.9 mg/dL (8.4-10.2); Carbon Dioxide 24 mmol/L (22-30); Chloride 93 mmol/L (98-107); Estimated CRCL calculation 11 ml/min; Estimated Glomerular Filt Rate 6; Glucose 374 mg/dL (65-110); Magnesium 2.3 mg/dL (1.6-2.3); Potassium 4.3 mmol/L (3.4-5.0); Sodium 127 mmol/L (137-145)
[2024-09-02 04:28] LABS: INR 3.9; Prothrombin Time 38.7 Seconds (11.1-14.7)
[2024-09-02] MEDS: LEVOTHYROXINE SODIUM 25 MCG TABLET PO (06:40)
[2024-09-02] MEDS: PIPERACILLIN/TAZ 2.25G/NS 50ML 2.25 GM/50 ML BAG IVPB ×3 (06:48→22:05)
[2024-09-02 07:59] LABS: Glucose Point of Care 437 mg/dl (65-105)
[2024-09-02] MEDS: valACYclovir HCL 500 MG TABLET PO ×2 (08:27→22:03)
[2024-09-02] MEDS: ASPIRIN 81 MG CHEWABLE TABLET PO (08:27)
[2024-09-02] MEDS: INSULIN GLARGINE (*BKC) 100 UNITS/ML 30 UNITS SUB-Q (08:27)
[2024-09-02] MEDS: TAMSULOSIN HCL 0.4 MG CAPSULE PO ×2 (08:27→16:49)
[2024-09-02] MEDS: CALCIUM ACETATE 667 MG TABLET PO ×4 (08:27→22:03)
[2024-09-02] MEDS: PANTOPRAZOLE 40 MG TABLET PO (08:27)
[2024-09-02] MEDS: EZETIMIBE 10 MG TABLET PO (08:27)
[2024-09-02] MEDS: calcitrioL 0.25 MCG CAPSULE PO (08:27)
[2024-09-02] MEDS: ATORVASTATIN 40 MG TABLET 80 MG PO (08:28)
[2024-09-02] MEDS: cycloSPORINE 0.4 ML OPHTH SOLUTION 1 DROP EACH EYE ×2 (08:32→22:05)
[2024-09-02] MEDS: INSULIN HUMAN REGULAR (*BKC) 100 UNITS/ML 10 UNITS IV PUSH (08:36)
--- NOTE | 2024-09-02 09:10 | P.PNINT_ITS ---
Progress Note: A&P Assessment and Plan (1) Diabetic ketoacidosis: Code(s): E11.10 - Type 2 diabetes mellitus with ketoacidosis without coma Status: Acute Assessment and Plan: Pt will be given 1 L IVF bolus On admission further fluids were held due to patient's end-stage renal disease Insulin infusion was started and Q1H glucose monitoring was done Serial labs were done His anion gap closed and and patient has been transition to subcutaneous insulin he is tolerating p.o. diet Consult dietitian and methods and procedures analyst blood sugars are high as patient has now started eating.I will increase the Lantus to 30 units subQ q.12 hours Continue sliding scale and I will add with meal insulin. (2) ESRD on peritoneal dialysis: Code(s): N18.6 - End stage renal disease; Z99.2 - Dependence on renal dialysis Status: Acute Assessment and Plan: Patient is getting PD every night. Nephrology following (3) Sepsis: Code(s): A41.9 - Sepsis, unspecified organism Status: Acute Assessment and Plan: Patient met criteria for sepsis. Chest x-ray shows left lower lobe infiltrate suggestive of pneumonia. Patient also has right upper quadrant tenderness and has history of cholelithiasis Due to his as treatment disease be given conservative amount of IV fluids and 1 L fluid bolus was get Blood cultures, UA and micro sent And negative procalcitonin level was 1.6 CT chest abdomen pelvis could not be done as patient was unable to lay flat right upper quadrant ultrasound showed coli lithiasis but no evidence of cholecystitis patient seen by surgeon Although patient's abdominal pain is local and right upper quadrant and affluent was yellow and clear, mica miner sent peritoneal fluid for cytology and was negative and culture pending Continue Empiric vancomycin Zosyn and azithromycin patient was on low-dose Jonn-Synephrine which have weaned off this morning. Will continue to monitor closely. (4) Pneumonia: Qualifiers: Pneumonia type: due to unspecified organism Laterality: left Lung location: lower lobe of lung Qualified Code(s): J18.9 - Pneumonia, unspecified organism Code(s): J18.9 - Pneumonia, unspecified organism Status: Acute Assessment and Plan: See above (5) Cholelithiasis: Qualifiers: Cholelithiasis location: gallbladder Cholecystitis presence: without cholecystitis Biliary obstruction: without biliary obstruction Qualified Code(s): K80.20 - Calculus of gallbladder without cholecystitis without obstruction Code(s): K80.20 - Calculus of gallbladder without cholecystitis without obstruction Status: Acute Assessment and Plan: Tenderness in right upper quadrant. right upper quadrant ultrasound showed cholelithiasis with no evidence of cholecystitis. Patient was seen by General surgery and recommend low-fat diet at this time. No plan for surgical intervention at the moment I have discussed recommendation of General Surgeon with the patient (6) Abdominal pain: Code(s): R10.9 - Unspecified abdominal pain Status: Resolved Assessment and Plan: See above (7) Hypertension: Code(s): I10 - Essential (primary) hypertension Status: Chronic Assessment and Plan: Blood pressure borderline Hold amlodipine and beta-umair Plan DVT prophylaxis -warfarin Will be held as INR is 3.9 Stress ulcer prophylaxis -continue home PPI Nutrition - diet order Code Status - Full Code Total Critical Care Time - 30 minutes Due to a high probability of clinically significant, life threatening deterioration, the patient required my highest level of preparedness to intervene emergently and I personally spent this critical care time directly and personally managing the patient. This critical care time included obtaining a history; examining the patient; pulse oximetry; ordering and review of studies; arranging urgent treatment with development of a management plan; evaluation of patient's response to treatment; frequent reassessment; and discussions with other providers. It was exclusive of separately billable procedures and treating other patients and teaching time. Please see Assessment and Plan section and the rest of the note for further information on patient assessment and treatment Subjective Date/time seen: 09/02/24 Juvenal is feeling better this morning and states that overall he feels improved and less weak and tired. He has started eating p.o. diet. He had his PD done last night. He denies any fever. He still has cough which is dry. He states the pain in the belly is still there although it is intermittent and rates 3 to 4/10. Patient denies fever, chest pain, shortness of breath, nausea vomiting, diarrhea, headache or constipation. All other systems were reviewed and were negative. Patient remains on low dose of Jonn-Synephrine for blood pressure support. He is afebrile. He is on nasal cannula. He refused to wear his CPAP last night. Review of Systems Review of Systems: All systems reviewed & are unremarkable except as noted in HPI and below (HPI) Exam Narrative: General: Pt is alert awake and in mild distress Lungs/Chest: Trachea central Clear BS B/L, No crackles or wheezing. Cardiac: RRR. Normal S1 S2. No murmurs Circulation: Pedal pulses are intact and symmetrical. Abdomen: Normal bowel sounds.. Soft. Tenderness in right upper quadrant, PD catheter in place Extremities: Bilateral pitting edema : Nguyen in place Neurologic: Follows commands. Moves all 4 extremities PERRL AO x3 Skin: Chronic venous stasis changes on both legs Objective Data Vital Signs Vital Signs: Vital Signs - 24 hr 09/01/24 09:38 09/01/24 10:24 09/01/24 11:05 Temperature Pulse Rate 112 H 112 H 110 H Respiratory Rate 16 Blood Pressure 94/64 L 86/54 L 88/56 L Pulse Oximetry 95 Oxygen Delivery Oxygen Flow Rate 09/01/24 12:00 09/01/24 12:00 09/01/24 12:00 Temperature 36.9 C Pulse Rate 109 H 108 H Respiratory Rate 16 Blood Pressure 100/60 95/70 L Pulse Oximetry 96 95 Oxygen Delivery Nasal Cannula Oxygen Flow Rate 2 09/01/24 12:45 09/01/24 13:44 09/01/24 14:00 Temperature Pulse Rate 107 H 112 H 112 H Respiratory Rate 18 Blood Pressure 91/51 L 110/69 94/58 L Pulse Oximetry 94 Oxygen Delivery Oxygen Flow Rate 09/01/24 15:30 09/01/24 16:00 09/01/24 16:00 Temperature 37.2 C Pulse Rate 113 H 112 H Respiratory Rate 21 H Blood Pressure 82/58 L 84/60 L Pulse Oximetry 92 92 Oxygen Delivery Nasal Cannula Oxygen Flow Rate 2 09/01/24 16:15 09/01/24 17:55 09/01/24 18:00 Temperature Pulse Rate 112 H 109 H 110 H Respiratory Rate 19 Blood Pressure 79/56 L 101/73 103/63 Pulse Oximetry 94 Oxygen Delivery Oxygen Flow Rate 09/01/24 20:00 09/01/24 20:00 09/01/24 20:43 Temperature 36.7 C Pulse Rate 111 H 111 H Respiratory Rate 20 Blood Pressure 96/56 L Pulse Oximetry 98 Oxygen Delivery Oxygen Flow Rate 2 09/01/24 20:58 09/01/24 21:00 09/01/24 22:00 Temperature Pulse Rate 111 H 109 H Respiratory Rate 20 Blood Pressure 112/68 106/69 Pulse Oximetry 95 Oxygen Delivery Nasal Cannula Oxygen Flow Rate 2 09/01/24 22:00 09/01/24 22:00 09/01/24 22:43 Temperature Pulse Rate 109 H 109 H 109 H Respiratory Rate 18 Blood Pressure 106/69 114/79 Pulse Oximetry 97 Oxygen Delivery Oxygen Flow Rate 09/01/24 23:00 09/02/24 00:00 09/02/24 00:00 Temperature 36.4 C L Pulse Rate 110 H 111 H 111 H Respiratory Rate 15 Blood Pressure 111/72 104/79 104/79 Pulse Oximetry 96 Oxygen Delivery Oxygen Flow Rate 09/02/24 00:00 09/02/24 00:00 09/02/24 00:45 Temperature Pulse Rate 111 H 110 H Respiratory Rate 111 H Blood Pressure 110/79 Pulse Oximetry 95 Oxygen Delivery Nasal Cannula Oxygen Flow Rate 3 09/02/24 01:00 09/02/24 02:00 09/02/24 02:00 Temperature Pulse Rate 109 H 111 H 111 H Respiratory Rate 15 Blood Pressure 103/54 L 120/87 Pulse Oximetry 95 Oxygen Delivery Oxygen Flow Rate 09/02/24 02:00 09/02/24 03:04 09/02/24 03:15 Temperature Pulse Rate 111 H 110 H 110 H Respiratory Rate Blood Pressure 120/87 115/89 112/70 Pulse Oximetry Oxygen Delivery Oxygen Flow Rate 09/02/24 04:00 09/02/24 04:00 09/02/24 04:00 Temperature 36.5 C Pulse Rate 110 H 110 H Respiratory Rate 14 Blood Pressure 109/76 109/76 Pulse Oximetry 95 96 Oxygen Delivery Nasal Cannula Oxygen Flow Rate 3 09/02/24 04:00 09/02/24 04:45 09/02/24 05:15 Temperature Pulse Rate 110 H 110 H 110 H Respiratory Rate 15 16 Blood Pressure 103/78 117/74 Pulse Oximetry 95 96 Oxygen Delivery Oxygen Flow Rate 09/02/24 05:15 09/02/24 05:30 09/02/24 06:00 Temperature Pulse Rate 110 H 111 H 111 H Respiratory Rate Blood Pressure 117/74 117/74 118/74 Pulse Oximetry Oxygen Delivery Oxygen Flow Rate 09/02/24 06:00 09/02/24 06:00 09/02/24 06:35 Temperature Pulse Rate 111 H 111 H 111 H Respiratory Rate 15 Blood Pressure 118/74 117/71 Pulse Oximetry 97 Oxygen Delivery Oxygen Flow Rate 09/02/24 06:50 09/02/24 07:55 09/02/24 08:00 Temperature 36.4 C Pulse Rate 111 H 112 H 111 H Respiratory Rate 18 Blood Pressure 117/75 111/69 111/69 Pulse Oximetry 96 Oxygen Delivery Oxygen Flow Rate Intake/Output Intake/Output: Intake & Output 08/30/24 08/31/24 09/01/24 09/02/24 23:59 23:59 23:59 23:59 Intake Total 1137.1 2150.8 397.5 Output Total 0 2651 0 Balance 1137.1 -500.2 397.5 Meds/Results Medications: Active Medications Generic Name Dose Route Start Last Admin Trade Name Freq PRN Reason Stop Dose Admin Acetaminophen 650 mg 08/31/24 19:35 Acetaminophen 325 Mg Tablet PO Q4H PRN Mild Pain (1-3) or Fever Albuterol 2.5 mg 08/31/24 13:59 Albuterol Sulfate Neb 2.5 Mg/3 Ml Inh INHALATION Q4HRT PRN Shortness Of Breath Or Wheezing Albuterol 1 puff 08/31/24 22:48 Albuterol Sulfate (*Sp) Aerosol 1 Puff INHALATION Q6HRT PRN shortness of breath or wheezing Aspirin 81 mg 09/01/24 09:00 09/02/24 08:27 Aspirin 81 Mg Chewable Tablet PO 81 mg DAILY ASHLEY Administration Atorvastatin Calcium 80 mg 09/01/24 09:00 09/02/24 08:28 Atorvastatin 40 Mg Tablet PO 80 mg DAILY ASHLEY Administration Calcitriol 0.25 mcg 09/01/24 09:00 09/02/24 08:27 Calcitriol 0.25 Mcg Capsule PO 0.25 mcg QAM ASHLEY Administration Calcium Acetate 667 mg 08/31/24 21:00 09/02/24 08:27 Calcium Acetate 667 Mg Tablet PO 667 mg QID ASHLEY Administration Cyclobenzaprine HCl 10 mg 08/31/24 23:58 09/01/24 00:03 Cyclobenzaprine Hcl 10 Mg Tablet PO 10 mg Q8H PRN Administration muscle spasm Cyclosporine 1 drop 08/31/24 22:50 09/02/24 08:32 Cyclosporine 0.4 Ml Ophth Solution EACH EYE 1 drop Q12HR ASHLEY Administration Dextrose 12.5 gm 09/01/24 10:48 Dextrose 50% 25 Gm/50 Ml Syringe IV PUSH PRN PRN Hypoglycemia Protocol Ezetimibe 10 mg 09/01/24 09:00 09/02/24 08:27 Ezetimibe 10 Mg Tablet PO 10 mg DAILY ASHLEY Administration Erythromycin 1 applic 08/31/24 23:05 09/01/24 21:39 Erythromycin Ophth Ointment 1 Gm Tube EACH EYE 1 applic HS ASHLEY Administration Gentamicin Sulfate 1 applic 09/01/24 17:00 09/01/24 18:17 Gentamicin Sulfate 0.1% Oint 15 Gm Tube TOPICAL 1 applic DAILY ASHLEY Administration Glucagon 1 mg 09/01/24 10:48 Glucagon For Inj 1 Mg Vial IM PRN PRN Hypoglycemia Protocol Glucose 15 gm 09/01/24 10:48 Glucose Oral Gel 15 Gm Of Glucse In 37.5 Gm Tube PO PRN PRN Hypoglycemia Protocol Hydromorphone HCl 0.5 mg 08/31/24 19:39 Hydromorphone Hcl Inj (*Crx) 1 Mg/Ml Syr IV PUSH Q3H PRN Pain Rated 7-10 Azithromycin 500 mg in 250 mls @ 250 mls/hr 09/01/24 14:00 09/01/24 15:55 Zithromax IVPB 09/06/24 13:59 Infused Q24H ASHLEY Infusion Piperacillin Sod/Tazobactam Sod 2.25 gm in 50 mls @ 100 mls/hr 08/31/24 14:00 09/02/24 06:48 Zosyn 2.25 Gm/Ns 50 Ml IVPB 100 mls/hr Q8H ASHLEY Administration Phenylephrine HCl 50 mg/ 250 ml in 250 mls @ 15 mls/hr 09/01/24 08:00 09/02/24 07:55 Dextrose IV CONT Infused .[id number] ASHLEY Titration Protocol 50 MCG/MIN Dextrose 1,000 mls @ 100 mls/hr 09/01/24 10:48 Dextrose 5% 1,000 Ml IVPB PRN PRN Hypoglycemia Protocol Insulin Aspart 4 - 8 units 09/01/24 12:00 09/02/24 08:28 Insulin Aspart (*Bkc) 100 Units/Ml SUB-Q Not Given TIDWM [facility] Protocol Insulin Aspart 2 - 4 units 09/01/24 21:00 09/01/24 21:43 Insulin Aspart (*Bkc) 100 Units/Ml SUB-Q 3 units HS ASHLEY Administration Protocol Insulin Glargine 30 units 09/02/24 09:00 09/02/24 08:27 Insulin Glargine (*Bkc) 100 Units/Ml SUB-Q 30 units Q12H ASHLEY Administration Levothyroxine Sodium 25 mcg 09/01/24 06:30 09/02/24 06:40 Levothyroxine Sodium 25 Mcg Tablet PO 25 mcg DAILY@0630 ASHLEY Administration Nitroglycerin 0.4 mg 08/31/24 22:48 Nitroglycerin Sl 0.4 Mg Tablet SUBLINGUAL Q5MIN PRN Chest Pain Ondansetron HCl 4 mg 08/31/24 13:20 08/31/24 13:42 Ondansetron Inj 4 Mg/2 Ml Vial IV PUSH 4 mg Q4H PRN Administration Nausea Oxycodone HCl 5 mg 08/31/24 19:39 09/01/24 22:36 Oxycodone Hcl (*Crx) 5 Mg Tab Ir PO 5 mg Q4H PRN Administration Pain Rated 7-10 Pantoprazole Sodium 40 mg 09/01/24 09:00 09/02/24 08:27 Pantoprazole 40 Mg Tablet PO 40 mg QAM ASHLEY Administration Tamsulosin HCl 0.4 mg 08/31/24 19:45 09/02/24 08:27 Tamsulosin Hcl 0.4 Mg Capsule PO 0.4 mg BID ASHLEY Administration Valacyclovir HCl 500 mg 08/31/24 23:05 09/02/24 08:27 Valacyclovir Hcl 500 Mg Tablet PO 500 mg Q12HR ASHLEY Administration Vancomycin HCl 1 each 08/31/24 13:35 Vancomycin For Peritoneal Dialysis IVPB PRN PRN Vancomycin Protocol Warfarin Sodium 3 mg 08/31/24 17:00 09/01/24 18:16 Warfarin (*Pbkc) 3 Mg Tablet PO 3 mg DAILY@1700 ASHLEY Administration Radiology Results: ITS Impressions Chest X-Ray 08/31/24 13:03 IMPRESSION: Patchy left mid and particularly lower lung infiltrate and/or atelectasis, increased since 08/18/2024 Small left pleural effusion Abdomen Ultrasound 09/01/24 09:21 IMPRESSION: Cholelithiasis Labs Labs: Laboratory Results - last 24 hr 09/01/24 09/01/24 09/01/24 09:55 10:56 11:53 WBC RBC Hgb Hct MCV MCH MCHC RDW Plt Count MPV Immature Gran % (Auto) Neut % (Auto) Lymph % (Auto) [place] % (Auto) Eos % (Auto) Baso % (Auto) Lymph # (Auto) [place] # (Auto) Eos # (Auto) Baso # (Auto) Abs Immat Gran (auto) Absolute Neuts (auto) Absolute Nucleated RBC Nucleated RBC % PT INR Sodium Potassium Chloride Carbon Dioxide Anion Gap BUN Creatinine Estim Creat Clear Calc Estimated GFR Glucose POC Capillary Glucose 158 H 204 H 255 H Calcium Magnesium Total Bilirubin AST ALT Alkaline Phosphatase Total Protein Albumin Peritoneal Source Peritoneal Color Peritoneal Appearance Peritoneal RBC Periton Nuc Cells Periton Neutrophils Periton Lymphocytes Periton Mesothelial Periton Macrophages 09/01/24 09/01/24 09/01/24 12:17 16:01 16:27 WBC RBC Hgb Hct MCV MCH MCHC RDW Plt Count MPV Immature Gran % (Auto) Neut % (Auto) Lymph % (Auto) [place] % (Auto) Eos % (Auto) Baso % (Auto) Lymph # (Auto) [place] # (Auto) Eos # (Auto) Baso # (Auto) Abs Immat Gran (auto) Absolute Neuts (auto) Absolute Nucleated RBC Nucleated RBC % PT INR Sodium 128 L 127 L Potassium 4.8 4.8 Chloride 95 L 94 L Carbon Dioxide 22 24 Anion Gap 11 9 BUN 74 H 74 H Creatinine 8.71 H 8.83 H Estim Creat Clear Calc 12 11 Estimated GFR 6 L 6 L Glucose 241 H 264 H POC Capillary Glucose 290 H Calcium 8.8 8.8 Magnesium Total Bilirubin AST ALT Alkaline Phosphatase Total Protein Albumin Peritoneal Source Peritoneal Color Peritoneal Appearance Peritoneal RBC Periton Nuc Cells Periton Neutrophils Periton Lymphocytes Periton Mesothelial Periton Macrophages 09/01/24 09/01/24 09/01/24 20:06 20:34 21:42 WBC RBC Hgb Hct MCV MCH MCHC RDW Plt Count MPV Immature Gran % (Auto) Neut % (Auto) Lymph % (Auto) [place] % (Auto) Eos % (Auto) Baso % (Auto) Lymph # (Auto) [place] # (Auto) Eos # (Auto) Baso # (Auto) Abs Immat Gran (auto) Absolute Neuts (auto) Absolute Nucleated RBC Nucleated RBC % PT INR Sodium 126 L Potassium 4.8 Chloride 92 L Carbon Dioxide 21 L Anion Gap 13 H BUN 78 H Creatinine 9.11 H Estim Creat Clear Calc 11 Estimated GFR 6 L Glucose 298 H POC Capillary Glucose 322 H Calcium 8.5 Magnesium Total Bilirubin AST ALT Alkaline Phosphatase Total Protein Albumin Peritoneal Source Peritoneal fluid Peritoneal Color Yellow Peritoneal Appearance Hazy A Peritoneal RBC < 2000 Periton Nuc Cells 150 Periton Neutrophils 5 Periton Lymphocytes 36 Periton Mesothelial 2 Periton Macrophages 57 09/02/24 09/02/24 09/02/24 00:33 03:50 07:52 WBC 5.9 RBC 3.47 L Hgb 10.6 L Hct 34.0 L MCV 98.0 D MCH 30.5 MCHC 31.2 L RDW 15.3 H Plt Count 197 MPV 10.1 Immature Gran % (Auto) 0.3 Neut % (Auto) 58.8 Lymph % (Auto) 20.9 [place] % (Auto) 13.2 H Eos % (Auto) 5.8 H Baso % (Auto) 1.0 Lymph # (Auto) 1.23 [place] # (Auto) 0.8 H Eos # (Auto) 0.3 Baso # (Auto) 0.1 Abs Immat Gran (auto) 0.02 Absolute Neuts (auto) 3.5 Absolute Nucleated RBC 0.000 Nucleated RBC % 0.0 PT 38.7 H D INR 3.9 Sodium 126 L 127 L Potassium 4.3 4.3 Chloride 92 L 93 L Carbon Dioxide 22 24 Anion Gap 12 10 BUN 75 H 71 H Creatinine 8.77 H 8.89 H Estim Creat Clear Calc 12 11 Estimated GFR 6 L 6 L Glucose 333 H 374 H POC Capillary Glucose 437 H Calcium 8.7 8.9 Magnesium 2.3 Total Bilirubin 0.5 AST 27 ALT 29 Alkaline Phosphatase 77 Total Protein 7.0 Albumin 3.8 Peritoneal Source Peritoneal Color Peritoneal Appearance Peritoneal RBC Periton Nuc Cells Periton Neutrophils Periton Lymphocytes Periton Mesothelial Periton Macrophages Quality VTE Prophylaxis VTE prophylaxis: mechanical ordered
--- NOTE | 2024-09-02 10:01 | P.PNNP_ITS ---
Progress Note: A&P Assessment and Plan (1) End-stage renal disease (ESRD): Code(s): N18.6 - End stage renal disease Status: Acute Assessment and Plan: * ESRD: Peritoneal dialysis. His peritoneal dialysate effluent is clear, however will make sure he does not have infection in light of the pain in the right upper quadrant. Peritoneal dialysis was supervised. He does have gallstones and this may well be responsible too. * Type 1 diabetes mellitus with hyperglycemia, DKA presentation: Insulin, discussed with patient going needs to get on regular insulin in stable from the pump * Hyponatremia in the presence of ESRD: Fluid removed * Possible pneumonia with chest x-ray showing infiltrate: Ceftriaxone and azithromycin * History of sleep apnea on CPAP, maintain CPAP * Anemia of chronic kidney disease: On long acting erythrocyte stimulating agent as needed, usually his hemoglobin sticks around 12 grams/deciliter * Secondary hyperparathyroidism: On calcitriol therapy * History of coronary artery disease. * Diabetes mellitus: Control per ICU team Peritoneal dialysis: -prescriptions altered to his regular schedule -Icodextrin not available in the hospital in the [place] use Dianeal 2.5% -Peritoneal dialysis supervised -look at cultures 09/02: --ESRD: UF is 433 mls,is NOT infected intra peritoneally --maintain same, is not able to use icodextrin in hospital --needs to change to BID insulin to prevent these events --PD orders maintained Subjective Date/time seen: 09/02/24 10:01 Interval history: PERITONEAL DIALYSIS UF 433 MLS PD orders to continue PD supervised D/w dialysis staff Fluid is clear PD fluid cell count noted, ANC 10, no evidence for an infection S: feels swollen Still some SOB Sugars better Exam Narrative: VSS noted WD WN, up in chair, looks swollen up, JVD is hard to see, RRR, tachycardia, no respiratory distress, soft, non tender abdomen, PD catheter in place, edematous legs, alert, oriented x 3 no tremors, cognition intact Objective Data Vital Signs Vital Signs: Vital Signs - 24 hr 09/01/24 10:24 09/01/24 11:05 09/01/24 12:00 Temperature 36.9 C Pulse Rate 112 H 110 H 109 H Respiratory Rate 16 Blood Pressure 86/54 L 88/56 L 100/60 Pulse Oximetry 96 Oxygen Delivery Oxygen Flow Rate 09/01/24 12:00 09/01/24 12:00 09/01/24 12:45 Temperature Pulse Rate 108 H 107 H Respiratory Rate Blood Pressure 95/70 L 91/51 L Pulse Oximetry 95 Oxygen Delivery Nasal Cannula Oxygen Flow Rate 2 09/01/24 13:44 09/01/24 14:00 09/01/24 15:30 Temperature Pulse Rate 112 H 112 H 113 H Respiratory Rate 18 Blood Pressure 110/69 94/58 L 82/58 L Pulse Oximetry 94 Oxygen Delivery Oxygen Flow Rate 09/01/24 16:00 09/01/24 16:00 09/01/24 16:15 Temperature 37.2 C Pulse Rate 112 H 112 H Respiratory Rate 21 H Blood Pressure 84/60 L 79/56 L Pulse Oximetry 92 92 Oxygen Delivery Nasal Cannula Oxygen Flow Rate 2 09/01/24 17:55 09/01/24 18:00 09/01/24 20:00 Temperature 36.7 C Pulse Rate 109 H 110 H 111 H Respiratory Rate 19 20 Blood Pressure 101/73 103/63 96/56 L Pulse Oximetry 94 98 Oxygen Delivery Oxygen Flow Rate 09/01/24 20:00 09/01/24 20:43 09/01/24 20:58 Temperature Pulse Rate 111 H 111 H Respiratory Rate Blood Pressure 112/68 Pulse Oximetry Oxygen Delivery Oxygen Flow Rate 2 09/01/24 21:00 09/01/24 22:00 09/01/24 22:00 Temperature Pulse Rate 109 H 109 H Respiratory Rate 20 18 Blood Pressure 106/69 106/69 Pulse Oximetry 95 97 Oxygen Delivery Nasal Cannula Oxygen Flow Rate 2 09/01/24 22:00 09/01/24 22:43 09/01/24 23:00 Temperature Pulse Rate 109 H 109 H 110 H Respiratory Rate Blood Pressure 114/79 111/72 Pulse Oximetry Oxygen Delivery Oxygen Flow Rate 09/02/24 00:00 09/02/24 00:00 09/02/24 00:00 Temperature 36.4 C L Pulse Rate 111 H 111 H 111 H Respiratory Rate 15 Blood Pressure 104/79 104/79 Pulse Oximetry 96 Oxygen Delivery Oxygen Flow Rate 09/02/24 00:00 09/02/24 00:45 09/02/24 01:00 Temperature Pulse Rate 110 H 109 H Respiratory Rate 111 H Blood Pressure 110/79 103/54 L Pulse Oximetry 95 Oxygen Delivery Nasal Cannula Oxygen Flow Rate 3 09/02/24 02:00 09/02/24 02:00 09/02/24 02:00 Temperature Pulse Rate 111 H 111 H 111 H Respiratory Rate 15 Blood Pressure 120/87 120/87 Pulse Oximetry 95 Oxygen Delivery Oxygen Flow Rate 09/02/24 03:04 09/02/24 03:15 09/02/24 04:00 Temperature 36.5 C Pulse Rate 110 H 110 H 110 H Respiratory Rate 14 Blood Pressure 115/89 112/70 109/76 Pulse Oximetry 95 Oxygen Delivery Oxygen Flow Rate 09/02/24 04:00 09/02/24 04:00 09/02/24 04:00 Temperature Pulse Rate 110 H 110 H Respiratory Rate Blood Pressure 109/76 Pulse Oximetry 96 Oxygen Delivery Nasal Cannula Oxygen Flow Rate 3 09/02/24 04:45 09/02/24 05:15 09/02/24 05:15 Temperature Pulse Rate 110 H 110 H 110 H Respiratory Rate 15 16 Blood Pressure 103/78 117/74 117/74 Pulse Oximetry 95 96 Oxygen Delivery Oxygen Flow Rate 09/02/24 05:30 09/02/24 06:00 09/02/24 06:00 Temperature Pulse Rate 111 H 111 H 111 H Respiratory Rate Blood Pressure 117/74 118/74 Pulse Oximetry Oxygen Delivery Oxygen Flow Rate 09/02/24 06:00 09/02/24 06:35 09/02/24 06:50 Temperature Pulse Rate 111 H 111 H 111 H Respiratory Rate 15 Blood Pressure 118/74 117/71 117/75 Pulse Oximetry 97 Oxygen Delivery Oxygen Flow Rate 09/02/24 07:55 09/02/24 07:56 09/02/24 08:00 Temperature 36.4 C Pulse Rate 112 H 116 H 111 H Respiratory Rate 18 Blood Pressure 111/69 111/69 Pulse Oximetry 96 Oxygen Delivery Oxygen Flow Rate Intake/Output Intake/Output: Intake & Output 08/30/24 08/31/24 09/01/24 09/02/24 23:59 23:59 23:59 23:59 Intake Total 1137.1 2150.8 517.5 Output Total 0 2651 0 Balance 1137.1 -500.2 517.5 Meds/Results Medications: Active Medications Generic Name Dose Route Start Last Admin Trade Name Freq PRN Reason Stop Dose Admin Acetaminophen 650 mg 08/31/24 19:35 Acetaminophen 325 Mg Tablet PO Q4H PRN Mild Pain (1-3) or Fever Albuterol 2.5 mg 08/31/24 13:59 Albuterol Sulfate Neb 2.5 Mg/3 Ml Inh INHALATION Q4HRT PRN Shortness Of Breath Or Wheezing Albuterol 1 puff 08/31/24 22:48 Albuterol Sulfate (*Sp) Aerosol 1 Puff INHALATION Q6HRT PRN shortness of breath or wheezing Aspirin 81 mg 09/01/24 09:00 09/02/24 08:27 Aspirin 81 Mg Chewable Tablet PO 81 mg DAILY ASHLEY Administration Atorvastatin Calcium 80 mg 09/01/24 09:00 09/02/24 08:28 Atorvastatin 40 Mg Tablet PO 80 mg DAILY ASHLEY Administration Calcitriol 0.25 mcg 09/01/24 09:00 09/02/24 08:27 Calcitriol 0.25 Mcg Capsule PO 0.25 mcg QAM ASHLEY Administration Calcium Acetate 667 mg 08/31/24 21:00 09/02/24 08:27 Calcium Acetate 667 Mg Tablet PO 667 mg QID ASHLEY Administration Cyclobenzaprine HCl 10 mg 08/31/24 23:58 09/01/24 00:03 Cyclobenzaprine Hcl 10 Mg Tablet PO 10 mg Q8H PRN Administration muscle spasm Cyclosporine 1 drop 08/31/24 22:50 09/02/24 08:32 Cyclosporine 0.4 Ml Ophth Solution EACH EYE 1 drop Q12HR ASHLEY Administration Dextrose 12.5 gm 09/01/24 10:48 Dextrose 50% 25 Gm/50 Ml Syringe IV PUSH PRN PRN Hypoglycemia Protocol Ezetimibe 10 mg 09/01/24 09:00 09/02/24 08:27 Ezetimibe 10 Mg Tablet PO 10 mg DAILY ASHLEY Administration Erythromycin 1 applic 08/31/24 23:05 09/01/24 21:39 Erythromycin Ophth Ointment 1 Gm Tube EACH EYE 1 applic HS ASHLEY Administration Gentamicin Sulfate 1 applic 09/01/24 17:00 09/01/24 18:17 Gentamicin Sulfate 0.1% Oint 15 Gm Tube TOPICAL 1 applic DAILY ASHLEY Administration Glucagon 1 mg 09/01/24 10:48 Glucagon For Inj 1 Mg Vial IM PRN PRN Hypoglycemia Protocol Glucose 15 gm 09/01/24 10:48 Glucose Oral Gel 15 Gm Of Glucse In 37.5 Gm Tube PO PRN PRN Hypoglycemia Protocol Hydromorphone HCl 0.5 mg 08/31/24 19:39 Hydromorphone Hcl Inj (*Crx) 1 Mg/Ml Syr IV PUSH Q3H PRN Pain Rated 7-10 Azithromycin 500 mg in 250 mls @ 250 mls/hr 09/01/24 14:00 09/01/24 15:55 Zithromax IVPB 09/06/24 13:59 Infused Q24H ASHLEY Infusion Piperacillin Sod/Tazobactam Sod 2.25 gm in 50 mls @ 100 mls/hr 08/31/24 14:00 09/02/24 06:48 Zosyn 2.25 Gm/Ns 50 Ml IVPB 100 mls/hr Q8H ASHLEY Administration Phenylephrine HCl 50 mg/ 250 ml in 250 mls @ 15 mls/hr 09/01/24 08:00 09/02/24 07:56 Dextrose IV CONT Not Given .[id number] ASHLEY Protocol 50 MCG/MIN Dextrose 1,000 mls @ 100 mls/hr 09/01/24 10:48 Dextrose 5% 1,000 Ml IVPB PRN PRN Hypoglycemia Protocol Insulin Aspart 4 - 8 units 09/01/24 12:00 09/02/24 08:28 Insulin Aspart (*Bkc) 100 Units/Ml SUB-Q Not Given T[facility] Protocol Insulin Aspart 2 - 4 units 09/01/24 21:00 09/01/24 21:43 Insulin Aspart (*Bkc) 100 Units/Ml SUB-Q 3 units HS ASHLEY Administration Protocol Insulin Aspart 6 units 09/02/24 12:00 Insulin Aspart (*Bkc) 100 Units/Ml 0.05 units/kg (6 units) SUB-Q [facility] Insulin Glargine 30 units 09/02/24 09:00 09/02/24 08:27 Insulin Glargine (*Bkc) 100 Units/Ml SUB-Q 30 units Q12H ASHLEY Administration Levothyroxine Sodium 25 mcg 09/01/24 06:30 09/02/24 06:40 Levothyroxine Sodium 25 Mcg Tablet PO 25 mcg DAILY@0630 ASHLEY Administration Nitroglycerin 0.4 mg 08/31/24 22:48 Nitroglycerin Sl 0.4 Mg Tablet SUBLINGUAL Q5MIN PRN Chest Pain Ondansetron HCl 4 mg 08/31/24 13:20 08/31/24 13:42 Ondansetron Inj 4 Mg/2 Ml Vial IV PUSH 4 mg Q4H PRN Administration Nausea Oxycodone HCl 5 mg 08/31/24 19:39 09/01/24 22:36 Oxycodone Hcl (*Crx) 5 Mg Tab Ir PO 5 mg Q4H PRN Administration Pain Rated 7-10 Pantoprazole Sodium 40 mg 09/01/24 09:00 09/02/24 08:27 Pantoprazole 40 Mg Tablet PO 40 mg QAM ASHLEY Administration Tamsulosin HCl 0.4 mg 08/31/24 19:45 09/02/24 08:27 Tamsulosin Hcl 0.4 Mg Capsule PO 0.4 mg BID ASHLEY Administration Valacyclovir HCl 500 mg 08/31/24 23:05 09/02/24 08:27 Valacyclovir Hcl 500 Mg Tablet PO 500 mg Q12HR ASHLEY Administration Vancomycin HCl 1 each 08/31/24 13:35 Vancomycin For Peritoneal Dialysis IVPB PRN PRN Vancomycin Protocol Warfarin Sodium 3 mg 08/31/24 17:00 09/01/24 18:16 Warfarin (*Pbkc) 3 Mg Tablet PO 3 mg DAILY@1700 ASHLEY Administration Radiology Results: ITS Impressions Chest X-Ray 08/31/24 13:03 IMPRESSION: Patchy left mid and particularly lower lung infiltrate and/or atelectasis, increased since 08/18/2024 Small left pleural effusion Abdomen Ultrasound 09/01/24 09:21 IMPRESSION: Cholelithiasis Labs Labs: Laboratory Results - last 24 hr 09/01/24 09/01/24 09/01/24 10:56 11:53 12:17 WBC RBC Hgb Hct MCV MCH MCHC RDW Plt Count MPV Immature Gran % (Auto) Neut % (Auto) Lymph % (Auto) [place] % (Auto) Eos % (Auto) Baso % (Auto) Lymph # (Auto) [place] # (Auto) Eos # (Auto) Baso # (Auto) Abs Immat Gran (auto) Absolute Neuts (auto) Absolute Nucleated RBC Nucleated RBC % PT INR Sodium 128 L Potassium 4.8 Chloride 95 L Carbon Dioxide 22 Anion Gap 11 BUN 74 H Creatinine 8.71 H Estim Creat Clear Calc 12 Estimated GFR 6 L Glucose 241 H POC Capillary Glucose 204 H 255 H Calcium 8.8 Magnesium Total Bilirubin AST ALT Alkaline Phosphatase Total Protein Albumin Peritoneal Source Peritoneal Color Peritoneal Appearance Peritoneal RBC Periton Nuc Cells Periton Neutrophils Periton Lymphocytes Periton Mesothelial Periton Macrophages 09/01/24 09/01/24 09/01/24 16:01 16:27 20:06 WBC RBC Hgb Hct MCV MCH MCHC RDW Plt Count MPV Immature Gran % (Auto) Neut % (Auto) Lymph % (Auto) [place] % (Auto) Eos % (Auto) Baso % (Auto) Lymph # (Auto) [place] # (Auto) Eos # (Auto) Baso # (Auto) Abs Immat Gran (auto) Absolute Neuts (auto) Absolute Nucleated RBC Nucleated RBC % PT INR Sodium 127 L 126 L Potassium 4.8 4.8 Chloride 94 L 92 L Carbon Dioxide 24 21 L Anion Gap 9 13 H BUN 74 H 78 H Creatinine 8.83 H 9.11 H Estim Creat Clear Calc 11 11 Estimated GFR 6 L 6 L Glucose 264 H 298 H POC Capillary Glucose 290 H Calcium 8.8 8.5 Magnesium Total Bilirubin AST ALT Alkaline Phosphatase Total Protein Albumin Peritoneal Source Peritoneal Color Peritoneal Appearance Peritoneal RBC Periton Nuc Cells Periton Neutrophils Periton Lymphocytes Periton Mesothelial Periton Macrophages 09/01/24 09/01/24 09/02/24 20:34 21:42 00:33 WBC RBC Hgb Hct MCV MCH MCHC RDW Plt Count MPV Immature Gran % (Auto) Neut % (Auto) Lymph % (Auto) [place] % (Auto) Eos % (Auto) Baso % (Auto) Lymph # (Auto) [place] # (Auto) Eos # (Auto) Baso # (Auto) Abs Immat Gran (auto) Absolute Neuts (auto) Absolute Nucleated RBC Nucleated RBC % PT INR Sodium 126 L Potassium 4.3 Chloride 92 L Carbon Dioxide 22 Anion Gap 12 BUN 75 H Creatinine 8.77 H Estim Creat Clear Calc 12 Estimated GFR 6 L Glucose 333 H POC Capillary Glucose 322 H Calcium 8.7 Magnesium Total Bilirubin AST ALT Alkaline Phosphatase Total Protein Albumin Peritoneal Source Peritoneal fluid Peritoneal Color Yellow Peritoneal Appearance Hazy A Peritoneal RBC < 2000 Periton Nuc Cells 150 Periton Neutrophils 5 Periton Lymphocytes 36 Periton Mesothelial 2 Periton Macrophages 57 09/02/24 09/02/24 03:50 07:52 WBC 5.9 RBC 3.47 L Hgb 10.6 L Hct 34.0 L MCV 98.0 D MCH 30.5 MCHC 31.2 L RDW 15.3 H Plt Count 197 MPV 10.1 Immature Gran % (Auto) 0.3 Neut % (Auto) 58.8 Lymph % (Auto) 20.9 [place] % (Auto) 13.2 H Eos % (Auto) 5.8 H Baso % (Auto) 1.0 Lymph # (Auto) 1.23 [place] # (Auto) 0.8 H Eos # (Auto) 0.3 Baso # (Auto) 0.1 Abs Immat Gran (auto) 0.02 Absolute Neuts (auto) 3.5 Absolute Nucleated RBC 0.000 Nucleated RBC % 0.0 PT 38.7 H D INR 3.9 Sodium 127 L Potassium 4.3 Chloride 93 L Carbon Dioxide 24 Anion Gap 10 BUN 71 H Creatinine 8.89 H Estim Creat Clear Calc 11 Estimated GFR 6 L Glucose 374 H POC Capillary Glucose 437 H Calcium 8.9 Magnesium 2.3 Total Bilirubin 0.5 AST 27 ALT 29 Alkaline Phosphatase 77 Total Protein 7.0 Albumin 3.8 Peritoneal Source Peritoneal Color Peritoneal Appearance Peritoneal RBC Periton Nuc Cells Periton Neutrophils Periton Lymphocytes Periton Mesothelial Periton Macrophages
[2024-09-02 11:48] LABS: Glucose Point of Care 350 mg/dl (65-105)
[2024-09-02] MEDS: INSULIN ASPART (*BKC) 100 UNITS/ML SUB-Q ×2 (11:52→16:50)
[2024-09-02] MEDS: INSULIN ASPART (*BKC) 100 UNITS/ML 6 UNITS SUB-Q ×2 (11:52→16:51)
--- NOTE | 2024-09-02 11:52 | P.CDI_ITS ---
CDI Query Clarification Request Acute on chronic CHF has been documented. Please specify type of heart failure if known. Clinical Indicators:CHF has been documented, BNP on 08/31 was 23,400. * Systolic * Diastolic * Combined Systolic and Diastolic * Unknown
[2024-09-02] MEDS: AZITHROMYCIN 500 MG/NS 250 ML 500 MG/250 ML BAG 250 MG IVPB (15:30)
[2024-09-02 16:59] LABS: Glucose Point of Care 215 mg/dl (65-105)
[2024-09-02] MEDS: ONDANSETRON INJ 4 MG/2 ML VIAL IV PUSH (17:22)
[2024-09-02 20:52] LABS: Glucose Point of Care 109 mg/dl (65-105)
[2024-09-02] MEDS: ERYTHROMYCIN OPHTH OINTMENT 1 GM TUBE 1 APPLIC EACH EYE (21:05)
[2024-09-03] VITALS (16 sets, daily range): BP systolic 103–139; BP diastolic 69–77; PULSE 98–114; RESP 12–19; TEMP 36.4–36.9; O2SAT 95–100
[2024-09-03 04:26] LABS: Basophils Percent Auto 0.3 % (0.2-1.2); Eosinophils Absolute Auto 0.2 K/mm3 (0-0.3); Eosinophils Percent Auto 5.5 % (0-4.4); Hematocrit 33.3 % (42.0-52.0); Hemoglobin 10.9 g/dL (14.0-18.0); Immature Granulocyte Absolute 0.01 K/mm3 (0.00-0.031); Immature Granulocyte Percent A 0.3 % (0-0.5); Lymphocytes Absolute Auto 0.97 K/mm3 (0.9-3.2); Lymphocytes Percent Auto 24.3 % (18.3-44.2); Mean Corpuscular HGB Conc 32.7 g/dl (32-36); Mean Corpuscular Hemoglobin 30.9 pg (26-34); Mean Corpuscular Volume 94.3 fl (80-100); Mean Platelet Volume 10.4 fl (7.4-10.4); Monocytes Absolute Auto 0.6 K/mm3 (0.1-0.6); Monocytes Percent Auto 13.8 % (2.6-8.5); Neutrophils Absolute Auto 2.2 K/mm3 (1.3-6.7); Neutrophils Percent Auto 55.8 % (45.5-73.1); Platelet Count Result 145 k/mm3 (150-375); Red Blood Count 3.53 M/mm3 (4.6-6.20); Red Cell Distribution Width 15.2 % (11.5-14.5)
[2024-09-03 04:36] LABS: Alanine Aminotransferase 30 U/L (6-50); Albumin Level 3.6 g/dL (3.5-5.1); Alkaline Phosphatase 76 U/L (38-126); Anion Gap 12 mmol/L (4-12); Aspartate Amino Transferase 28 U/L (17-59); Bilirubin,Total 0.6 mg/dL (0.2-1.3); Blood Urea Nitrogen 73 mg/dL (9-20); Calcium 8.6 mg/dL (8.4-10.2); Carbon Dioxide 24 mmol/L (22-30); Chloride 93 mmol/L (98-107); Estimated CRCL calculation 11 ml/min; Estimated Glomerular Filt Rate 6; Glucose 261 mg/dL (65-110); Magnesium 2.1 mg/dL (1.6-2.3); Potassium 4.4 mmol/L (3.4-5.0); Sodium 129 mmol/L (137-145)
[2024-09-03 04:44] LABS: INR 3.3; Prothrombin Time 34.1 Seconds (11.1-14.7)
[2024-09-03] MEDS: PIPERACILLIN/TAZ 2.25G/NS 50ML 2.25 GM/50 ML BAG IVPB (06:25)
[2024-09-03] MEDS: LEVOTHYROXINE SODIUM 25 MCG TABLET PO (07:29)
[2024-09-03 07:47] LABS: Glucose Point of Care 350 mg/dl (65-105)
[2024-09-03] MEDS: INSULIN GLARGINE (*BKC) 100 UNITS/ML 30 UNITS SUB-Q ×2 (07:51→22:15)
[2024-09-03] MEDS: INSULIN ASPART (*BKC) 100 UNITS/ML SUB-Q ×3 (07:52→22:15)
[2024-09-03] MEDS: calcitrioL 0.25 MCG CAPSULE PO (07:53)
[2024-09-03] MEDS: EZETIMIBE 10 MG TABLET PO (07:53)
[2024-09-03] MEDS: TAMSULOSIN HCL 0.4 MG CAPSULE PO ×2 (07:53→16:34)
[2024-09-03] MEDS: PANTOPRAZOLE 40 MG TABLET PO (07:53)
[2024-09-03] MEDS: CALCIUM ACETATE 667 MG TABLET PO ×4 (07:53→22:05)
[2024-09-03] MEDS: ATORVASTATIN 40 MG TABLET 80 MG PO (07:53)
[2024-09-03] MEDS: ASPIRIN 81 MG CHEWABLE TABLET PO (07:53)
[2024-09-03] MEDS: INSULIN ASPART (*BKC) 100 UNITS/ML 6 UNITS SUB-Q ×3 (07:53→16:34)
[2024-09-03] MEDS: valACYclovir HCL 500 MG TABLET PO ×2 (07:54→22:06)
[2024-09-03] MEDS: GENTAMICIN SULFATE 0.1% OINT 15 GM TUBE 1 APPLIC TOPICAL (07:55)
--- NOTE | 2024-09-03 09:56 | PM.PNNEP ---
Progress Note: A&P Assessment and Plan (1) End-stage renal disease (ESRD): Code(s): N18.6 - End stage renal disease Status: Acute Assessment and Plan: ESRD: Peritoneal dialysis. His peritoneal dialysate effluent is clear, however will make sure he does not have infection in light of the pain in the right upper quadrant. Peritoneal dialysis was supervised. He does have gallstones and this may well be responsible too. Type 1 diabetes mellitus with hyperglycemia, DKA presentation: Insulin, discussed with patient going needs to get on regular insulin in stable from the pump Hyponatremia in the presence of ESRD: Fluid removed Possible pneumonia with chest x-ray showing infiltrate: Ceftriaxone and azithromycin History of sleep apnea on CPAP, maintain CPAP Anemia of chronic kidney disease: On long acting erythrocyte stimulating agent as needed, usually his hemoglobin sticks around 12 grams/deciliter Secondary hyperparathyroidism: On calcitriol therapy History of coronary artery disease. Diabetes mellitus: Control per ICU team Peritoneal dialysis: -prescriptions altered to his regular schedule -Icodextrin not available in the hospital in the [place] use Dianeal 2.5% -Peritoneal dialysis supervised -look at cultures 09/02: --ESRD: UF is 433 mls,is NOT infected intra peritoneally --maintain same, is not able to use icodextrin in hospital --needs to change to BID insulin to prevent these events --PD orders maintained 09/03: --doing better with ultrafiltration and fluid situation better maintain same dialysis orders --maintain sugar control with insulin --hyponatremia secondary to fluid retention as well as high blood sugars --peritoneal dialysis orders to maintain and supervised dialysis Subjective Date/time seen: 09/03/24 09:56 Interval history: PERITONEAL DIALYSIS UF 1375 MLS PD orders to continue PD supervised D/w dialysis staff Fluid is clear PD fluid cell count noted, ANC 10, no evidence for an infection S: Generally feeling better, lives feels less bloated. No shortness of breath at rest. Exam Narrative: VSS noted WD WN, up in chair, looks swollen up, JVD is hard to see, irregular rhythm rate, tachycardia, no respiratory distress, soft, non tender abdomen, PD catheter in place, edematous legs, alert, oriented x 3 no tremors, cognition intact edema has decreased in lower extremities Objective Data Vital Signs Vital Signs: Vital Signs - 24 hr 09/02/24 10:00 09/02/24 10:00 09/02/24 12:00 Temperature 36.3 C L 36.4 C L Pulse Rate 109 H 112 H 110 H Respiratory Rate 17 17 Blood Pressure 105/73 105/68 Pulse Oximetry 97 96 Oxygen Delivery Oxygen Flow Rate Fraction of Inspired Oxygen 09/02/24 12:00 09/02/24 12:00 09/02/24 14:00 Temperature Pulse Rate 104 H 109 H 108 H Respiratory Rate 16 Blood Pressure Pulse Oximetry 97 Oxygen Delivery Nasal Cannula Oxygen Flow Rate 3 Fraction of Inspired Oxygen 09/02/24 14:00 09/02/24 16:00 09/02/24 16:00 Temperature Pulse Rate 109 H 106 H Respiratory Rate 19 Blood Pressure 106/67 Pulse Oximetry 97 Oxygen Delivery Nasal Cannula Oxygen Flow Rate 3 Fraction of Inspired Oxygen 09/02/24 16:00 09/02/24 16:00 09/02/24 18:00 Temperature Pulse Rate 110 H 102 H 106 H Respiratory Rate 19 19 Blood Pressure 106/75 Pulse Oximetry 96 99 Oxygen Delivery Nasal Cannula Oxygen Flow Rate 3 Fraction of Inspired Oxygen 09/02/24 18:00 09/02/24 20:00 09/02/24 20:00 Temperature Pulse Rate 113 H 109 H 109 H Respiratory Rate 20 14 Blood Pressure 114/73 Pulse Oximetry 98 97 Oxygen Delivery Autopap Oxygen Flow Rate Fraction of Inspired Oxygen 0 09/02/24 20:00 09/02/24 22:00 09/02/24 23:13 Temperature 36.2 C L Pulse Rate 110 H 75 109 H Respiratory Rate 20 14 Blood Pressure 118/89 Pulse Oximetry 94 97 Oxygen Delivery Autopap Oxygen Flow Rate Fraction of Inspired Oxygen 09/03/24 00:00 09/03/24 00:00 09/03/24 00:00 Temperature 36.4 C L Pulse Rate 109 H 109 H 105 H Respiratory Rate 14 19 Blood Pressure 120/77 Pulse Oximetry 97 97 Oxygen Delivery Autopap Oxygen Flow Rate 3 Fraction of Inspired Oxygen 0 09/03/24 01:59 09/03/24 02:00 09/03/24 04:00 Temperature Pulse Rate 110 H 110 H Respiratory Rate 19 Blood Pressure Pulse Oximetry 96 96 Oxygen Delivery Nasal Cannula Nasal Cannula Oxygen Flow Rate 2 2 Fraction of Inspired Oxygen 28 28 09/03/24 04:00 09/03/24 04:00 09/03/24 06:00 Temperature 36.9 C Pulse Rate 110 H 110 H 113 H Respiratory Rate 17 Blood Pressure 117/71 Pulse Oximetry 95 Oxygen Delivery Oxygen Flow Rate Fraction of Inspired Oxygen Intake/Output Intake/Output: Intake & Output 08/31/24 09/01/24 09/02/24 09/03/24 23:59 23:59 23:59 23:59 Intake Total 1137.1 2150.8 1207.5 Output Total 0 2651 593 0 Balance 1137.1 -500.2 614.5 0 Meds/Results Medications: Active Medications Generic Name Dose Route Start Last Admin Trade Name Freq PRN Reason Stop Dose Admin Acetaminophen 650 mg 08/31/24 19:35 Acetaminophen 325 Mg Tablet PO Q4H PRN Mild Pain (1-3) or Fever Albuterol 2.5 mg 08/31/24 13:59 Albuterol Sulfate Neb 2.5 Mg/3 Ml Inh INHALATION Q4HRT PRN Shortness Of Breath Or Wheezing Albuterol 1 puff 08/31/24 22:48 Albuterol Sulfate (*Sp) Aerosol 1 Puff INHALATION Q6HRT PRN shortness of breath or wheezing Amoxicillin/Clavulanate Potassium 1 tablet 09/03/24 09:00 Amoxicillin/Clavulanate K 875-125 Mg Tab PO 09/08/24 08:59 Q12HR AHSLEY Aspirin 81 mg 09/01/24 09:00 09/03/24 07:53 Aspirin 81 Mg Chewable Tablet PO 81 mg DAILY ASHLEY Administration Atorvastatin Calcium 80 mg 09/01/24 09:00 09/03/24 07:53 Atorvastatin 40 Mg Tablet PO 80 mg DAILY ASHLEY Administration Azithromycin 500 mg 09/03/24 09:00 Azithromycin 250 Mg Tablet PO 09/06/24 08:59 DAILY ASHLEY Calcitriol 0.25 mcg 09/01/24 09:00 09/03/24 07:53 Calcitriol 0.25 Mcg Capsule PO 0.25 mcg QAM ASHLEY Administration Calcium Acetate 667 mg 08/31/24 21:00 09/03/24 07:53 Calcium Acetate 667 Mg Tablet PO 667 mg QID ASHLEY Administration Cyclobenzaprine HCl 10 mg 08/31/24 23:58 09/01/24 00:03 Cyclobenzaprine Hcl 10 Mg Tablet PO 10 mg Q8H PRN Administration muscle spasm Cyclosporine 1 drop 08/31/24 22:50 09/02/24 22:05 Cyclosporine 0.4 Ml Ophth Solution EACH EYE 1 drop Q12HR ASHLEY Administration Dextrose 12.5 gm 09/01/24 10:48 Dextrose 50% 25 Gm/50 Ml Syringe IV PUSH PRN PRN Hypoglycemia Protocol Ezetimibe 10 mg 09/01/24 09:00 09/03/24 07:53 Ezetimibe 10 Mg Tablet PO 10 mg DAILY ASHLEY Administration Erythromycin 1 applic 08/31/24 23:05 09/02/24 21:05 Erythromycin Ophth Ointment 1 Gm Tube EACH EYE 1 applic HS ASHLEY Administration Gentamicin Sulfate 1 applic 09/01/24 17:00 09/03/24 07:55 Gentamicin Sulfate 0.1% Oint 15 Gm Tube TOPICAL 1 applic DAILY ASHLEY Administration Glucagon 1 mg 09/01/24 10:48 Glucagon For Inj 1 Mg Vial IM PRN PRN Hypoglycemia Protocol Glucose 15 gm 09/01/24 10:48 Glucose Oral Gel 15 Gm Of Glucse In 37.5 Gm Tube PO PRN PRN Hypoglycemia Protocol Hydromorphone HCl 0.5 mg 08/31/24 19:39 Hydromorphone Hcl Inj (*Crx) 1 Mg/Ml Syr IV PUSH Q3H PRN Pain Rated 7-10 Dextrose 1,000 mls @ 100 mls/hr 09/01/24 10:48 Dextrose 5% 1,000 Ml IVPB PRN PRN Hypoglycemia Protocol Insulin Aspart 4 - 8 units 09/01/24 12:00 09/03/24 07:52 Insulin Aspart (*Bkc) 100 Units/Ml SUB-Q 6 units TIDWM ASHLEY Administration Protocol Insulin Aspart 2 - 4 units 09/01/24 21:00 09/02/24 22:03 Insulin Aspart (*Bkc) 100 Units/Ml SUB-Q Not Given HS [facility] Protocol Insulin Aspart 6 units 09/02/24 12:00 09/03/24 07:53 Insulin Aspart (*Bkc) 100 Units/Ml 0.05 units/kg (6 units) 6 units SUB-Q Administration TIDWM [facility] Insulin Glargine 30 units 09/02/24 09:00 09/03/24 07:51 Insulin Glargine (*Bkc) 100 Units/Ml SUB-Q 30 units Q12H ASHLEY Administration Levothyroxine Sodium 25 mcg 09/01/24 06:30 09/03/24 07:29 Levothyroxine Sodium 25 Mcg Tablet PO 25 mcg DAILY@0630 ASHLEY Administration Metoprolol Tartrate 25 mg 09/03/24 09:00 Metoprolol Tartrate 25 Mg Tablet PO Q12HR [facility] Nitroglycerin 0.4 mg 08/31/24 22:48 Nitroglycerin Sl 0.4 Mg Tablet SUBLINGUAL Q5MIN PRN Chest Pain Oxycodone HCl 5 mg 08/31/24 19:39 09/01/24 22:36 Oxycodone Hcl (*Crx) 5 Mg Tab Ir PO 5 mg Q4H PRN Administration Pain Rated 7-10 Pantoprazole Sodium 40 mg 09/01/24 09:00 09/03/24 07:53 Pantoprazole 40 Mg Tablet PO 40 mg QAM [facility] Administration Tamsulosin HCl 0.4 mg 08/31/24 19:45 09/03/24 07:53 Tamsulosin Hcl 0.4 Mg Capsule PO 0.4 mg BID [facility] Administration Valacyclovir HCl 500 mg 08/31/24 23:05 09/03/24 07:54 Valacyclovir Hcl 500 Mg Tablet PO 500 mg Q12HR [facility] Administration Warfarin Sodium 3 mg 08/31/24 17:00 09/01/24 18:16 Warfarin (*Pbkc) 3 Mg Tablet PO 3 mg DAILY@1700 [facility] Administration Radiology Results: ITS Impressions Chest X-Ray 08/31/24 13:03 IMPRESSION: Patchy left mid and particularly lower lung infiltrate and/or atelectasis, increased since 08/18/2024 Small left pleural effusion Abdomen Ultrasound 09/01/24 09:21 IMPRESSION: Cholelithiasis Labs Labs: Laboratory Results - last 24 hr 09/02/24 09/02/24 09/02/24 11:40 16:51 20:44 WBC RBC Hgb Hct MCV MCH MCHC RDW Plt Count MPV Immature Gran % (Auto) Neut % (Auto) Lymph % (Auto) [place] % (Auto) Eos % (Auto) Baso % (Auto) Lymph # (Auto) [place] # (Auto) Eos # (Auto) Baso # (Auto) Abs Immat Gran (auto) Absolute Neuts (auto) Absolute Nucleated RBC Nucleated RBC % PT INR Sodium Potassium Chloride Carbon Dioxide Anion Gap BUN Creatinine Estim Creat Clear Calc Estimated GFR Glucose POC Capillary Glucose 350 H 215 H 109 H Calcium Magnesium Total Bilirubin AST ALT Alkaline Phosphatase Total Protein Albumin 09/03/24 09/03/24 03:54 07:45 WBC 4.0 L RBC 3.53 L Hgb 10.9 L Hct 33.3 L MCV 94.3 MCH 30.9 MCHC 32.7 RDW 15.2 H Plt Count 145 L MPV 10.4 Immature Gran % (Auto) 0.3 Neut % (Auto) 55.8 Lymph % (Auto) 24.3 [place] % (Auto) 13.8 H Eos % (Auto) 5.5 H Baso % (Auto) 0.3 Lymph # (Auto) 0.97 [place] # (Auto) 0.6 Eos # (Auto) 0.2 Baso # (Auto) 0.0 Abs Immat Gran (auto) 0.01 Absolute Neuts (auto) 2.2 Absolute Nucleated RBC 0.000 Nucleated RBC % 0.0 PT 34.1 H INR 3.3 Sodium 129 L Potassium 4.4 Chloride 93 L Carbon Dioxide 24 Anion Gap 12 BUN 73 H Creatinine 9.33 H Estim Creat Clear Calc 11 Estimated GFR 6 L Glucose 261 H POC Capillary Glucose 350 H Calcium 8.6 Magnesium 2.1 Total Bilirubin 0.6 AST 28 ALT 30 Alkaline Phosphatase 76 Total Protein 6.0 L Albumin 3.6
[2024-09-03] MEDS: AZITHROMYCIN 250 MG TABLET 500 MG PO (10:00)
[2024-09-03] MEDS: METOPROLOL TARTRATE 25 MG TABLET PO ×2 (10:00→22:06)
[2024-09-03] MEDS: cycloSPORINE 0.4 ML OPHTH SOLUTION 1 DROP EACH EYE ×2 (10:01→22:06)
--- NOTE | 2024-09-03 10:40 | PM.IMPN ---
Progress Note: A&P Assessment and Plan (1) Diabetic ketoacidosis: Code(s): E11.10 - Type 2 diabetes mellitus with ketoacidosis without coma Status: Acute Assessment and Plan: Pt will be given 1 L IVF bolus On admission further fluids were held due to patient's end-stage renal disease Insulin infusion was started and Q1H glucose monitoring was done Serial labs were done His anion gap closed and and patient has been transition to subcutaneous insulin he is tolerating p.o. diet Consult dietitian and in service educator continue Lantus and sliding scale insulin (2) ESRD on peritoneal dialysis: Code(s): N18.6 - End stage renal disease; Z99.2 - Dependence on renal dialysis Status: Acute Assessment and Plan: Patient is getting PD every night. Nephrology following (3) Sepsis: Code(s): A41.9 - Sepsis, unspecified organism Status: Acute Assessment and Plan: Patient met criteria for sepsis. Chest x-ray shows left lower lobe infiltrate suggestive of pneumonia. Patient also has right upper quadrant tenderness and has history of cholelithiasis Due to his as treatment disease be given conservative amount of IV fluids and 1 L fluid bolus was get Blood cultures, UA and micro sent And negative procalcitonin level was 1.6 CT chest abdomen pelvis could not be done as patient was unable to lay flat right upper quadrant ultrasound showed coli lithiasis but no evidence of cholecystitis patient seen by surgeon Although patient's abdominal pain is local and right upper quadrant and affluent was yellow and clear, taxicab coordinator sent peritoneal fluid for cytology and was negative and culture pending discontinue vancomycin. Switch Zosyn to p.o. Augmentin. Switch azithromycin to p.o. has been off of Jonn-Synephrine for more than 24 hours (4) Pneumonia: Qualifiers: Pneumonia type: due to unspecified organism Laterality: left Lung location: lower lobe of lung Qualified Code(s): J18.9 - Pneumonia, unspecified organism Code(s): J18.9 - Pneumonia, unspecified organism Status: Acute Assessment and Plan: See above (5) Cholelithiasis: Qualifiers: Cholelithiasis location: gallbladder Cholecystitis presence: without cholecystitis Biliary obstruction: without biliary obstruction Qualified Code(s): K80.20 - Calculus of gallbladder without cholecystitis without obstruction Code(s): K80.20 - Calculus of gallbladder without cholecystitis without obstruction Status: Acute Assessment and Plan: Tenderness in right upper quadrant. right upper quadrant ultrasound showed cholelithiasis with no evidence of cholecystitis. Patient was seen by General surgery and recommend low-fat diet at this time. No plan for surgical intervention at the moment I have discussed recommendation of General Surgeon with the patient (6) Abdominal pain: Code(s): R10.9 - Unspecified abdominal pain Status: Resolved Assessment and Plan: See above (7) Hypertension: Code(s): I10 - Essential (primary) hypertension Status: Chronic Assessment and Plan: Blood pressure borderline Hold amlodipine and beta-umair (8) Paroxysmal atrial fibrillation: Code(s): I48.0 - Paroxysmal atrial fibrillation Status: Acute Assessment and Plan: resume beta-umair anticoagulated with warfarin Plan DVT prophylaxis -warfarin on hold due to high INR. Will resume tomorrow Stress ulcer prophylaxis -continue home PPI Nutrition - diet order Code Status - Full Code PT OT incentive spirometry up in chair Subjective Date/time seen: 09/03/24 Overnight events reviewed. Afebrile he states he feels much better and getting back to his baseline. But continues to have cough. Cough is mostly dry. He denies any fever. He denies any pain. Tolerating p.o. diet. He states his breathing is doing better. Patient denies fever, chest pain, nausea vomiting, abdominal pain,, diarrhea, headache or constipation. He again did not wear his CPAP last night. All other systems were reviewed and were negative he is getting his peritoneal dialysis every night. Other Vitals acceptable Review of Systems Review of Systems: All systems reviewed & are unremarkable except as noted in HPI and below (HPI) Exam Narrative: General: Pt is alert awake and in mild distress Lungs/Chest: Trachea central Clear BS B/L, No crackles or wheezing. Cardiac: RRR. Normal S1 S2. No murmurs Circulation: Pedal pulses are intact and symmetrical. Abdomen: Normal bowel sounds.. Soft. Tenderness in right upper quadrant, PD catheter in place Extremities: Bilateral pitting edema : Nguyen in place Neurologic: Follows commands. Moves all 4 extremities PERRL AO x3 Skin: Chronic venous stasis changes on both legs Objective Data Vital Signs Vital Signs: Vital Signs - 24 hr 09/02/24 12:00 09/02/24 12:00 09/02/24 12:00 Temperature 36.4 C L Pulse Rate 110 H 104 H 109 H Respiratory Rate 17 16 Blood Pressure 105/68 Pulse Oximetry 96 97 Oxygen Delivery Nasal Cannula Oxygen Flow Rate 3 Fraction of Inspired Oxygen 09/02/24 14:00 09/02/24 14:00 09/02/24 16:00 Temperature Pulse Rate 108 H 109 H Respiratory Rate 19 Blood Pressure 106/67 Pulse Oximetry 97 Oxygen Delivery Nasal Cannula Oxygen Flow Rate 3 Fraction of Inspired Oxygen 09/02/24 16:00 09/02/24 16:00 09/02/24 16:00 Temperature Pulse Rate 106 H 110 H 102 H Respiratory Rate 19 19 Blood Pressure 106/75 Pulse Oximetry 96 99 Oxygen Delivery Nasal Cannula Oxygen Flow Rate 3 Fraction of Inspired Oxygen 09/02/24 18:00 09/02/24 18:00 09/02/24 20:00 Temperature Pulse Rate 106 H 113 H 109 H Respiratory Rate 20 14 Blood Pressure 114/73 Pulse Oximetry 98 97 Oxygen Delivery Autopap Oxygen Flow Rate Fraction of Inspired Oxygen 0 09/02/24 20:00 09/02/24 20:00 09/02/24 22:00 Temperature 36.2 C L Pulse Rate 109 H 110 H 75 Respiratory Rate 20 Blood Pressure 118/89 Pulse Oximetry 94 Oxygen Delivery Oxygen Flow Rate Fraction of Inspired Oxygen 09/02/24 23:13 09/03/24 00:00 09/03/24 00:00 Temperature Pulse Rate 109 H 109 H 109 H Respiratory Rate 14 14 Blood Pressure Pulse Oximetry 97 97 Oxygen Delivery Autopap Autopap Oxygen Flow Rate 3 Fraction of Inspired Oxygen 0 09/03/24 00:00 09/03/24 01:59 09/03/24 02:00 Temperature 36.4 C L Pulse Rate 105 H 110 H Respiratory Rate 19 Blood Pressure 120/77 Pulse Oximetry 97 96 Oxygen Delivery Nasal Cannula Oxygen Flow Rate 2 Fraction of Inspired Oxygen 28 09/03/24 04:00 09/03/24 04:00 09/03/24 04:00 Temperature 36.9 C Pulse Rate 110 H 110 H 110 H Respiratory Rate 19 17 Blood Pressure 117/71 Pulse Oximetry 96 95 Oxygen Delivery Nasal Cannula Oxygen Flow Rate 2 Fraction of Inspired Oxygen 28 09/03/24 06:00 09/03/24 10:00 09/03/24 10:10 Temperature 36.9 C Pulse Rate 113 H 112 H 113 H Respiratory Rate 17 Blood Pressure 117/71 Pulse Oximetry Oxygen Delivery Oxygen Flow Rate Fraction of Inspired Oxygen Intake/Output Intake/Output: Intake & Output 08/31/24 09/01/24 09/02/24 09/03/24 23:59 23:59 23:59 23:59 Intake Total 1137.1 2150.8 1207.5 Output Total 0 2651 593 1302 Balance 1137.1 -500.2 614.5 -1302 Meds/Results Medications: Active Medications Generic Name Dose Route Start Last Admin Trade Name Freq PRN Reason Stop Dose Admin Acetaminophen 650 mg 08/31/24 19:35 Acetaminophen 325 Mg Tablet PO Q4H PRN Mild Pain (1-3) or Fever Albuterol 2.5 mg 08/31/24 13:59 Albuterol Sulfate Neb 2.5 Mg/3 Ml Inh INHALATION Q4HRT PRN Shortness Of Breath Or Wheezing Albuterol 1 puff 08/31/24 22:48 Albuterol Sulfate (*Sp) Aerosol 1 Puff INHALATION Q6HRT PRN shortness of breath or wheezing Amoxicillin/Clavulanate Potassium 1 tablet 09/03/24 09:00 Amoxicillin/Clavulanate K 875-125 Mg Tab PO 09/08/24 08:59 Q12HR ASHLEY Aspirin 81 mg 09/01/24 09:00 09/03/24 07:53 Aspirin 81 Mg Chewable Tablet PO 81 mg DAILY ASHLEY Administration Atorvastatin Calcium 80 mg 09/01/24 09:00 09/03/24 07:53 Atorvastatin 40 Mg Tablet PO 80 mg DAILY ASHLEY Administration Azithromycin 500 mg 09/03/24 09:00 09/03/24 10:00 Azithromycin 250 Mg Tablet PO 09/06/24 08:59 500 mg DAILY ASHLEY Administration Calcitriol 0.25 mcg 09/01/24 09:00 09/03/24 07:53 Calcitriol 0.25 Mcg Capsule PO 0.25 mcg QAM ASHLEY Administration Calcium Acetate 667 mg 08/31/24 21:00 09/03/24 07:53 Calcium Acetate 667 Mg Tablet PO 667 mg QID ASHLEY Administration Cyclobenzaprine HCl 10 mg 08/31/24 23:58 09/01/24 00:03 Cyclobenzaprine Hcl 10 Mg Tablet PO 10 mg Q8H PRN Administration muscle spasm Cyclosporine 1 drop 08/31/24 22:50 09/03/24 10:01 Cyclosporine 0.4 Ml Ophth Solution EACH EYE 1 drop Q12HR ASHLEY Administration Dextrose 12.5 gm 09/01/24 10:48 Dextrose 50% 25 Gm/50 Ml Syringe IV PUSH PRN PRN Hypoglycemia Protocol Ezetimibe 10 mg 09/01/24 09:00 09/03/24 07:53 Ezetimibe 10 Mg Tablet PO 10 mg DAILY ASHLEY Administration Erythromycin 1 applic 08/31/24 23:05 09/02/24 21:05 Erythromycin Ophth Ointment 1 Gm Tube EACH EYE 1 applic HS ASHLEY Administration Gentamicin Sulfate 1 applic 09/01/24 17:00 09/03/24 07:55 Gentamicin Sulfate 0.1% Oint 15 Gm Tube TOPICAL 1 applic DAILY ASHLEY Administration Glucagon 1 mg 09/01/24 10:48 Glucagon For Inj 1 Mg Vial IM PRN PRN Hypoglycemia Protocol Glucose 15 gm 09/01/24 10:48 Glucose Oral Gel 15 Gm Of Glucse In 37.5 Gm Tube PO PRN PRN Hypoglycemia Protocol Hydromorphone HCl 0.5 mg 08/31/24 19:39 Hydromorphone Hcl Inj (*Crx) 1 Mg/Ml Syr IV PUSH Q3H PRN Pain Rated 7-10 Dextrose 1,000 mls @ 100 mls/hr 09/01/24 10:48 Dextrose 5% 1,000 Ml IVPB PRN PRN Hypoglycemia Protocol Insulin Aspart 4 - 8 units 09/01/24 12:00 09/03/24 07:52 Insulin Aspart (*Bkc) 100 Units/Ml SUB-Q 6 units TIDWM [facility] Administration Protocol Insulin Aspart 2 - 4 units 09/01/24 21:00 09/02/24 22:03 Insulin Aspart (*Bkc) 100 Units/Ml SUB-Q Not Given [facility] Protocol Insulin Aspart 6 units 09/02/24 12:00 09/03/24 07:53 Insulin Aspart (*Bkc) 100 Units/Ml 0.05 units/kg (6 units) 6 units SUB-Q Administration TIDWM [facility] Insulin Glargine 30 units 09/02/24 09:00 09/03/24 07:51 Insulin Glargine (*Bkc) 100 Units/Ml SUB-Q 30 units Q12H ASHLEY Administration Levothyroxine Sodium 25 mcg 09/01/24 06:30 09/03/24 07:29 Levothyroxine Sodium 25 Mcg Tablet PO 25 mcg DAILY@0630 ASHLEY Administration Metoprolol Tartrate 25 mg 09/03/24 09:00 09/03/24 10:00 Metoprolol Tartrate 25 Mg Tablet PO 25 mg Q12HR ASHLEY Administration Nitroglycerin 0.4 mg 08/31/24 22:48 Nitroglycerin Sl 0.4 Mg Tablet SUBLINGUAL Q5MIN PRN Chest Pain Oxycodone HCl 5 mg 08/31/24 19:39 09/01/24 22:36 Oxycodone Hcl (*Crx) 5 Mg Tab Ir PO 5 mg Q4H PRN Administration Pain Rated 7-10 Pantoprazole Sodium 40 mg 09/01/24 09:00 09/03/24 07:53 Pantoprazole 40 Mg Tablet PO 40 mg QAM ASHLEY Administration Tamsulosin HCl 0.4 mg 08/31/24 19:45 09/03/24 07:53 Tamsulosin Hcl 0.4 Mg Capsule PO 0.4 mg BID ASHLEY Administration Valacyclovir HCl 500 mg 08/31/24 23:05 09/03/24 07:54 Valacyclovir Hcl 500 Mg Tablet PO 500 mg Q12HR ASHLEY Administration Warfarin Sodium 3 mg 08/31/24 17:00 09/01/24 18:16 Warfarin (*Pbkc) 3 Mg Tablet PO 3 mg DAILY@1700 ASHLEY Administration Radiology Results: ITS Impressions Chest X-Ray 08/31/24 13:03 IMPRESSION: Patchy left mid and particularly lower lung infiltrate and/or atelectasis, increased since 08/18/2024 Small left pleural effusion Abdomen Ultrasound 09/01/24 09:21 IMPRESSION: Cholelithiasis Labs Labs: Laboratory Results - last 24 hr 09/02/24 09/02/24 09/02/24 11:40 16:51 20:44 WBC RBC Hgb Hct MCV MCH MCHC RDW Plt Count MPV Immature Gran % (Auto) Neut % (Auto) Lymph % (Auto) [place] % (Auto) Eos % (Auto) Baso % (Auto) Lymph # (Auto) [place] # (Auto) Eos # (Auto) Baso # (Auto) Abs Immat Gran (auto) Absolute Neuts (auto) Absolute Nucleated RBC Nucleated RBC % PT INR Sodium Potassium Chloride Carbon Dioxide Anion Gap BUN Creatinine Estim Creat Clear Calc Estimated GFR Glucose POC Capillary Glucose 350 H 215 H 109 H Calcium Magnesium Total Bilirubin AST ALT Alkaline Phosphatase Total Protein Albumin 09/03/24 09/03/24 03:54 07:45 WBC 4.0 L RBC 3.53 L Hgb 10.9 L Hct 33.3 L MCV 94.3 MCH 30.9 MCHC 32.7 RDW 15.2 H Plt Count 145 L MPV 10.4 Immature Gran % (Auto) 0.3 Neut % (Auto) 55.8 Lymph % (Auto) 24.3 [place] % (Auto) 13.8 H Eos % (Auto) 5.5 H Baso % (Auto) 0.3 Lymph # (Auto) 0.97 [place] # (Auto) 0.6 Eos # (Auto) 0.2 Baso # (Auto) 0.0 Abs Immat Gran (auto) 0.01 Absolute Neuts (auto) 2.2 Absolute Nucleated RBC 0.000 Nucleated RBC % 0.0 PT 34.1 H INR 3.3 Sodium 129 L Potassium 4.4 Chloride 93 L Carbon Dioxide 24 Anion Gap 12 BUN 73 H Creatinine 9.33 H Estim Creat Clear Calc 11 Estimated GFR 6 L Glucose 261 H POC Capillary Glucose 350 H Calcium 8.6 Magnesium 2.1 Total Bilirubin 0.6 AST 28 ALT 30 Alkaline Phosphatase 76 Total Protein 6.0 L Albumin 3.6 Quality VTE Prophylaxis VTE prophylaxis: pharmacologic ordered
[2024-09-03 11:52] LABS: Glucose Point of Care 296 mg/dl (65-105)
[2024-09-03] MEDS: AMOXICILLIN/CLAVULANATE K 500-125 MG TAB 1 TABLET PO ×2 (14:54→22:06)
[2024-09-03 16:33] LABS: Glucose Point of Care 179 mg/dl (65-105)
[2024-09-03] MEDS: ERYTHROMYCIN OPHTH OINTMENT 1 GM TUBE 1 APPLIC EACH EYE (22:06)
[2024-09-03 22:12] LABS: Glucose Point of Care 238 mg/dl (65-105)
[2024-09-04] VITALS (10 sets, daily range): BP systolic 118–130; BP diastolic 71–93; PULSE 96–108; RESP 11–19; TEMP 36.6–36.8; O2SAT 97–100
[2024-09-04 03:30] LABS: Basophils Percent Auto 0.7 % (0.2-1.2); Eosinophils Absolute Auto 0.2 K/mm3 (0-0.3); Eosinophils Percent Auto 4.7 % (0-4.4); Hematocrit 33.5 % (42.0-52.0); Hemoglobin 11.2 g/dL (14.0-18.0); Immature Granulocyte Absolute 0.01 K/mm3 (0.00-0.031); Immature Granulocyte Percent A 0.2 % (0-0.5); Lymphocytes Absolute Auto 0.86 K/mm3 (0.9-3.2); Lymphocytes Percent Auto 19.4 % (18.3-44.2); Mean Corpuscular HGB Conc 33.4 g/dl (32-36); Mean Corpuscular Hemoglobin 31.4 pg (26-34); Mean Corpuscular Volume 93.8 fl (80-100); Mean Platelet Volume 9.9 fl (7.4-10.4); Monocytes Absolute Auto 0.6 K/mm3 (0.1-0.6); Neutrophils Absolute Auto 2.7 K/mm3 (1.3-6.7); Platelet Count Result 132 k/mm3 (150-375); Red Blood Count 3.57 M/mm3 (4.6-6.20); White Blood Count 4.4 K/mm3 (4.5-10.0)
[2024-09-04 03:42] LABS: Alanine Aminotransferase 33 U/L (6-50); Albumin Level 3.4 g/dL (3.5-5.1); Alkaline Phosphatase 77 U/L (38-126); Anion Gap 10 mmol/L (4-12); Aspartate Amino Transferase 36 U/L (17-59); Bilirubin,Total 0.7 mg/dL (0.2-1.3); Blood Urea Nitrogen 70 mg/dL (9-20); Calcium 8.3 mg/dL (8.4-10.2); Carbon Dioxide 27 mmol/L (22-30); Chloride 92 mmol/L (98-107); Estimated CRCL calculation 11 ml/min; Estimated Glomerular Filt Rate 6; Glucose 274 mg/dL (65-110); Magnesium 2.1 mg/dL (1.6-2.3); Potassium 4.2 mmol/L (3.4-5.0); Sodium 129 mmol/L (137-145)
[2024-09-04 03:44] LABS: INR 2.1; Prothrombin Time 24.1 Seconds (11.1-14.7)
[2024-09-04] MEDS: TAMSULOSIN HCL 0.4 MG CAPSULE PO ×2 (08:11→17:20)
[2024-09-04] MEDS: AMOXICILLIN/CLAVULANATE K 500-125 MG TAB 1 TABLET PO ×2 (08:11→21:00)
[2024-09-04] MEDS: LEVOTHYROXINE SODIUM 25 MCG TABLET PO (08:11)
[2024-09-04] MEDS: ASPIRIN 81 MG CHEWABLE TABLET PO (08:11)
[2024-09-04] MEDS: AZITHROMYCIN 250 MG TABLET 500 MG PO (08:11)
[2024-09-04] MEDS: CALCIUM ACETATE 667 MG TABLET PO ×4 (08:11→21:20)
[2024-09-04] MEDS: EZETIMIBE 10 MG TABLET PO (08:11)
[2024-09-04] MEDS: valACYclovir HCL 500 MG TABLET PO (08:11)
[2024-09-04] MEDS: cycloSPORINE 0.4 ML OPHTH SOLUTION 1 DROP EACH EYE ×2 (08:11→21:06)
[2024-09-04] MEDS: ATORVASTATIN 40 MG TABLET 80 MG PO (08:11)
[2024-09-04] MEDS: calcitrioL 0.25 MCG CAPSULE PO (08:12)
[2024-09-04] MEDS: INSULIN GLARGINE (*BKC) 100 UNITS/ML 30 UNITS SUB-Q (08:12)
[2024-09-04] MEDS: INSULIN ASPART (*BKC) 100 UNITS/ML SUB-Q (08:12)
[2024-09-04] MEDS: PANTOPRAZOLE 40 MG TABLET PO (08:12)
[2024-09-04] MEDS: INSULIN ASPART (*BKC) 100 UNITS/ML 6 UNITS SUB-Q ×2 (08:12→11:59)
[2024-09-04] MEDS: METOPROLOL TARTRATE 25 MG TABLET PO ×2 (08:12→21:00)
[2024-09-04] MEDS: GENTAMICIN SULFATE 0.1% OINT 15 GM TUBE 1 APPLIC TOPICAL (08:13)
[2024-09-04 08:23] LABS: Glucose Point of Care 239 mg/dl (65-105)
[2024-09-04] MEDS: guaiFENesin/DEXTROMETHORPHAN 10 ML UDC PO ×4 (10:09→21:00)
[2024-09-04 12:05] LABS: Glucose Point of Care 136 mg/dl (65-105)
--- NOTE | 2024-09-04 15:01 | P.PNIM_ITS ---
Progress Note: A&P Assessment and Plan (1) Diabetic ketoacidosis: Code(s): E11.10 - Type 2 diabetes mellitus with ketoacidosis without coma Status: Acute Assessment and Plan: Pt will be given 1 L IVF bolus On admission further fluids were held due to patient's end-stage renal disease Insulin infusion was started and Q1H glucose monitoring was done Serial labs were done His anion gap closed and and patient has been transition to subcutaneous insulin he is tolerating p.o. diet Consult dietitian and staff development educator 09/04: Will increase Lantus today -continue Accu-Cheks and sliding scale insulin (2) ESRD on peritoneal dialysis: Code(s): N18.6 - End stage renal disease; Z99.2 - Dependence on renal dialysis Status: Acute Assessment and Plan: Patient is getting PD every night. Nephrology following (3) Sepsis: Code(s): A41.9 - Sepsis, unspecified organism Status: Acute Assessment and Plan: Patient met criteria for sepsis. Chest x-ray shows left lower lobe infiltrate suggestive of pneumonia. Patient also has right upper quadrant tenderness and has history of cholelithiasis Due to his as treatment disease be given conservative amount of IV fluids and 1 L fluid bolus was get Blood cultures, UA and micro are negative procalcitonin level was 1.6 CT chest abdomen pelvis could not be done as patient was unable to lay flat right upper quadrant ultrasound showed cholelithiasis but no evidence of cholecystitis, patient seen by surgery, no intervention at this time Although patient's abdominal pain is local and right upper quadrant and affluent was yellow and clear, food service attendant sent peritoneal fluid for cytology and was negative and preliminary cultures are negative - discontinue vancomycin. - Switch Zosyn to p.o. Augmentin. Switch azithromycin to p.o. Status post Jonn-Synephrine for greater than 48 hours (4) Pneumonia: Qualifiers: Pneumonia type: due to unspecified organism Laterality: left Lung location: lower lobe of lung Qualified Code(s): J18.9 - Pneumonia, unspecified organism Code(s): J18.9 - Pneumonia, unspecified organism Status: Acute Assessment and Plan: See above (5) Cholelithiasis: Qualifiers: Cholelithiasis location: gallbladder Cholecystitis presence: without cholecystitis Biliary obstruction: without biliary obstruction Qualified Code(s): K80.20 - Calculus of gallbladder without cholecystitis without obstruction Code(s): K80.20 - Calculus of gallbladder without cholecystitis without obstruction Status: Acute Assessment and Plan: Tenderness in right upper quadrant. right upper quadrant ultrasound showed cholelithiasis with no evidence of cholecystitis. Patient was seen by General surgery and recommend low-fat diet at this time. No plan for surgical intervention at the moment I have discussed recommendation of General Surgeon with the patient (6) Abdominal pain: Code(s): R10.9 - Unspecified abdominal pain Status: Resolved Assessment and Plan: See above (7) Hypertension: Code(s): I10 - Essential (primary) hypertension Status: Chronic Assessment and Plan: Blood pressure borderline Hold amlodipine and beta-umair (8) Paroxysmal atrial fibrillation: Code(s): I48.0 - Paroxysmal atrial fibrillation Status: Acute Assessment and Plan: resume beta-umair anticoagulated with warfarin -INR 2.1 -will resume warfarin Plan DVT prophylaxis -resume warfarin Stress ulcer prophylaxis -continue home PPI Nutrition - diet order Code Status - Full Code PT OT incentive spirometry up in chair Subjective Date/time seen: 09/04/24 15:01 Interval history: Patient admitted for diabetic ketoacidosis, cholelithiasis, possible pneumonia, 09/04/2024: Patient being seen for the hospitalist group Patient seen and examined this morning, states he feels much better, denies any chest pain, shortness of breath, abdominal pain, nausea, vomiting. Complains of dry cough. Receive peritoneal dialysis last night. He did not wear his CPAP last night. Review of Systems Review of Systems: All systems reviewed & are unremarkable except as noted in HPI and below (HPI) Exam Narrative: General: Pt is alert awake and in mild distress Lungs/Chest: Trachea central Clear BS B/L, No crackles or wheezing. Cardiac: RRR. Normal S1 S2. No murmurs Circulation: Pedal pulses are intact and symmetrical. Abdomen: Normal bowel sounds.. Soft. Nontender PD catheter in place Extremities: Pitting edema bilateral, palpable pulses : Nguyen in place Neurologic: Follows commands. Moves all 4 extremities PERRL AO x3 Skin: Chronic venous stasis changes on both legs Objective Data Vital Signs Vital Signs: Vital Signs - 24 hr 09/03/24 16:00 09/03/24 16:00 09/03/24 16:00 Temperature 97.7 F Pulse Rate 106 H 110 H 106 H Respiratory Rate 19 19 Blood Pressure 103/69 Pulse Oximetry 96 96 Oxygen Delivery Nasal Cannula Oxygen Flow Rate 1 Fraction of Inspired Oxygen 09/03/24 18:00 09/03/24 20:00 09/03/24 20:00 Temperature Pulse Rate 105 H 105 H 105 H Respiratory Rate 19 Blood Pressure Pulse Oximetry 96 Oxygen Delivery Nasal Cannula Oxygen Flow Rate 1 Fraction of Inspired Oxygen 09/03/24 20:00 09/03/24 22:00 09/03/24 22:47 Temperature 98.1 F Pulse Rate 101 H 98 Respiratory Rate 16 12 Blood Pressure 139/75 Pulse Oximetry 100 Oxygen Delivery Autopap Oxygen Flow Rate Fraction of Inspired Oxygen 09/04/24 00:00 09/04/24 00:00 09/04/24 00:00 Temperature 98.2 F Pulse Rate 98 99 99 Respiratory Rate 12 19 Blood Pressure 126/93 H Pulse Oximetry 100 100 Oxygen Delivery Autopap Oxygen Flow Rate Fraction of Inspired Oxygen 09/04/24 02:00 09/04/24 03:57 09/04/24 03:59 Temperature Pulse Rate 106 H 106 H 105 H Respiratory Rate 19 Blood Pressure Pulse Oximetry 100 Oxygen Delivery Autopap Oxygen Flow Rate Fraction of Inspired Oxygen 09/04/24 03:59 09/04/24 06:00 09/04/24 07:00 Temperature 98.2 F Pulse Rate 106 H 108 H 106 H Respiratory Rate 19 19 Blood Pressure 130/82 130/82 Pulse Oximetry 100 Oxygen Delivery Oxygen Flow Rate Fraction of Inspired Oxygen 09/04/24 08:00 09/04/24 08:00 09/04/24 08:00 Temperature Pulse Rate 108 H 108 H 108 H Respiratory Rate 12 11 L Blood Pressure 123/77 Pulse Oximetry 100 97 Oxygen Delivery Room Air Oxygen Flow Rate Fraction of Inspired Oxygen 09/04/24 08:12 Temperature Pulse Rate 101 H Respiratory Rate Blood Pressure Pulse Oximetry Oxygen Delivery Oxygen Flow Rate Fraction of Inspired Oxygen Intake/Output Intake/Output: Intake & Output 09/01/24 09/02/24 09/03/24 09/04/24 23:59 23:59 23:59 23:59 Intake Total 2150.8 1207.5 1200 240 Output Total 2651 593 1302 1716 Balance -500.2 614.5 -456 -7152 Meds/Results Medications: Active Medications Generic Name Dose Route Start Last Admin Trade Name Freq PRN Reason Stop Dose Admin Acetaminophen 650 mg 08/31/24 19:35 Acetaminophen 325 Mg Tablet PO Q4H PRN Mild Pain (1-3) or Fever Albuterol 2.5 mg 08/31/24 13:59 Albuterol Sulfate Neb 2.5 Mg/3 Ml Inh INHALATION Q4HRT PRN Shortness Of Breath Or Wheezing Albuterol 1 puff 08/31/24 22:48 Albuterol Sulfate (*Sp) Aerosol 1 Puff INHALATION Q6HRT PRN shortness of breath or wheezing Amoxicillin/Clavulanate Potassium 1 tablet 09/03/24 12:40 09/04/24 08:11 Amoxicillin/Clavulanate K 500-125 Mg Tab PO 1 tablet Q12HR ASHLEY Administration Aspirin 81 mg 09/01/24 09:00 09/04/24 08:11 Aspirin 81 Mg Chewable Tablet PO 81 mg DAILY ASHLEY Administration Atorvastatin Calcium 80 mg 09/01/24 09:00 09/04/24 08:11 Atorvastatin 40 Mg Tablet PO 80 mg DAILY ASHLEY Administration Azithromycin 500 mg 09/03/24 09:00 09/04/24 08:11 Azithromycin 250 Mg Tablet PO 09/06/24 08:59 500 mg DAILY ASHLEY Administration Calcitriol 0.25 mcg 09/01/24 09:00 09/04/24 08:12 Calcitriol 0.25 Mcg Capsule PO 0.25 mcg QAM ASHLEY Administration Calcium Acetate 667 mg 08/31/24 21:00 09/04/24 11:58 Calcium Acetate 667 Mg Tablet PO 667 mg QID ASHLEY Administration Cyclobenzaprine HCl 10 mg 08/31/24 23:58 09/01/24 00:03 Cyclobenzaprine Hcl 10 Mg Tablet PO 10 mg Q8H PRN Administration muscle spasm Cyclosporine 1 drop 08/31/24 22:50 09/04/24 08:11 Cyclosporine 0.4 Ml Ophth Solution EACH EYE 1 drop Q12HR ASHLEY Administration Dextrose 12.5 gm 09/01/24 10:48 Dextrose 50% 25 Gm/50 Ml Syringe IV PUSH PRN PRN Hypoglycemia Protocol Ezetimibe 10 mg 09/01/24 09:00 09/04/24 08:11 Ezetimibe 10 Mg Tablet PO 10 mg DAILY ASHLEY Administration Erythromycin 1 applic 08/31/24 23:05 09/03/24 22:06 Erythromycin Ophth Ointment 1 Gm Tube EACH EYE 1 applic HS ASHLEY Administration Gentamicin Sulfate 1 applic 09/01/24 17:00 09/04/24 08:13 Gentamicin Sulfate 0.1% Oint 15 Gm Tube TOPICAL 1 applic DAILY ASHLEY Administration Glucagon 1 mg 09/01/24 10:48 Glucagon For Inj 1 Mg Vial IM PRN PRN Hypoglycemia Protocol Glucose 15 gm 09/01/24 10:48 Glucose Oral Gel 15 Gm Of Glucse In 37.5 Gm Tube PO PRN PRN Hypoglycemia Protocol Guaifenesin/Dextromethorphan 10 ml 09/04/24 10:00 09/04/24 14:38 Guaifenesin/Dextromethorphan 10 Ml Udc PO 09/06/24 09:59 10 ml Q4H ASHLEY Administration Hydromorphone HCl 0.5 mg 08/31/24 19:39 Hydromorphone Hcl Inj (*Crx) 1 Mg/Ml Syr IV PUSH Q3H PRN Pain Rated 7-10 Dextrose 1,000 mls @ 100 mls/hr 09/01/24 10:48 Dextrose 5% 1,000 Ml IVPB PRN PRN Hypoglycemia Protocol Insulin Aspart 4 - 8 units 09/01/24 12:00 09/04/24 11:59 Insulin Aspart (*Bkc) 100 Units/Ml SUB-Q Not Given TIDWM [facility] Protocol Insulin Aspart 2 - 4 units 09/01/24 21:00 09/03/24 22:15 Insulin Aspart (*Bkc) 100 Units/Ml SUB-Q 2 units HS [facility] Administration Protocol Insulin Aspart 7 units 09/04/24 12:00 09/04/24 12:02 Insulin Aspart (*Bkc) 100 Units/Ml SUB-Q Not Given TIDWM [facility] Insulin Glargine 35 units 09/04/24 08:49 09/04/24 09:04 Insulin Glargine (*Bkc) 100 Units/Ml SUB-Q Not Given Q12HR [facility] Levothyroxine Sodium 25 mcg 09/01/24 06:30 09/04/24 08:11 Levothyroxine Sodium 25 Mcg Tablet PO 25 mcg DAILY@0630 ASHLEY Administration Metoprolol Tartrate 25 mg 09/03/24 09:00 09/04/24 08:12 Metoprolol Tartrate 25 Mg Tablet PO 25 mg Q12HR ASHLEY Administration Nitroglycerin 0.4 mg 08/31/24 22:48 Nitroglycerin Sl 0.4 Mg Tablet SUBLINGUAL Q5MIN PRN Chest Pain Oxycodone HCl 5 mg 08/31/24 19:39 09/01/24 22:36 Oxycodone Hcl (*Crx) 5 Mg Tab Ir PO 5 mg Q4H PRN Administration Pain Rated 7-10 Pantoprazole Sodium 40 mg 09/01/24 09:00 09/04/24 08:12 Pantoprazole 40 Mg Tablet PO 40 mg QAM ASHLEY Administration Tamsulosin HCl 0.4 mg 08/31/24 19:45 09/04/24 08:11 Tamsulosin Hcl 0.4 Mg Capsule PO 0.4 mg BID [facility] Administration Valacyclovir HCl 500 mg 09/05/24 09:00 Valacyclovir Hcl 500 Mg Tablet PO DAILY [facility] Warfarin Sodium 3 mg 08/31/24 17:00 09/01/24 18:16 Warfarin (*Pbkc) 3 Mg Tablet PO 3 mg DAILY@1700 ASHLEY Administration Radiology Results: ITS Impressions Chest X-Ray 08/31/24 13:03 IMPRESSION: Patchy left mid and particularly lower lung infiltrate and/or atelectasis, increased since 08/18/2024 Small left pleural effusion Abdomen Ultrasound 09/01/24 09:21 IMPRESSION: Cholelithiasis Labs Labs: Laboratory Results - last 24 hr 09/03/24 09/03/24 09/04/24 16:16 22:08 03:24 WBC 4.4 L RBC 3.57 L Hgb 11.2 L Hct 33.5 L MCV 93.8 MCH 31.4 MCHC 33.4 RDW 15.0 H Plt Count 132 L MPV 9.9 Immature Gran % (Auto) 0.2 Neut % (Auto) 61.0 Lymph % (Auto) 19.4 [place] % (Auto) 14.0 H Eos % (Auto) 4.7 H Baso % (Auto) 0.7 Lymph # (Auto) 0.86 L [place] # (Auto) 0.6 Eos # (Auto) 0.2 Baso # (Auto) 0.0 Abs Immat Gran (auto) 0.01 Absolute Neuts (auto) 2.7 Absolute Nucleated RBC 0.000 Nucleated RBC % 0.0 PT 24.1 H D INR 2.1 Sodium 129 L Potassium 4.2 Chloride 92 L Carbon Dioxide 27 Anion Gap 10 BUN 70 H Creatinine 9.24 H Estim Creat Clear Calc 11 Estimated GFR 6 L Glucose 274 H POC Capillary Glucose 179 H 238 H Calcium 8.3 L Magnesium 2.1 Total Bilirubin 0.7 AST 36 ALT 33 Alkaline Phosphatase 77 Total Protein 6.0 L Albumin 3.4 L 09/04/24 09/04/24 08:07 11:57 WBC RBC Hgb Hct MCV MCH MCHC RDW Plt Count MPV Immature Gran % (Auto) Neut % (Auto) Lymph % (Auto) [place] % (Auto) Eos % (Auto) Baso % (Auto) Lymph # (Auto) [place] # (Auto) Eos # (Auto) Baso # (Auto) Abs Immat Gran (auto) Absolute Neuts (auto) Absolute Nucleated RBC Nucleated RBC % PT INR Sodium Potassium Chloride Carbon Dioxide Anion Gap BUN Creatinine Estim Creat Clear Calc Estimated GFR Glucose POC Capillary Glucose 239 H 136 H Calcium Magnesium Total Bilirubin AST ALT Alkaline Phosphatase Total Protein Albumin Quality VTE Prophylaxis VTE prophylaxis: pharmacologic ordered
[2024-09-04] MEDS: WARFARIN (*PBKC) 3 MG TABLET PO (17:20)
[2024-09-04] MEDS: INSULIN ASPART (*BKC) 100 UNITS/ML 7 UNITS SUB-Q (17:21)
[2024-09-04 17:32] LABS: Glucose Point of Care 134 mg/dl (65-105)
--- NOTE | 2024-09-04 17:44 | PC.NURSE ---
Report given to LUAN Silverio @ 2345
--- NOTE | 2024-09-04 18:23 | PC.NURSE ---
This patient, Juvenal Rodriguez Pilo Brock, was received from IMU on 09/04/24 at 1823. Patient/family oriented to unit policies and routines
[2024-09-04] MEDS: INSULIN GLARGINE (*BKC) 100 UNITS/ML 35 UNITS SUB-Q (21:01)
[2024-09-04] MEDS: ERYTHROMYCIN OPHTH OINTMENT 1 GM TUBE 1 APPLIC EACH EYE (21:06)
[2024-09-04 21:30] LABS: Glucose Point of Care 169 mg/dl (65-105)
[2024-09-05] VITALS (8 sets, daily range): BP systolic 113–143; BP diastolic 63–84; PULSE 76–114; RESP 16–18; TEMP 36.1–37.2; O2SAT 97–98
[2024-09-05] MEDS: guaiFENesin/DEXTROMETHORPHAN 10 ML UDC PO ×4 (05:49→21:51)
[2024-09-05 06:00] LABS: Basophils Percent Auto 0.5 % (0.2-1.2); Eosinophils Absolute Auto 0.3 K/mm3 (0-0.3); Eosinophils Percent Auto 5.5 % (0-4.4); Hematocrit 35.2 % (42.0-52.0); Hemoglobin 11.6 g/dL (14.0-18.0); Immature Granulocyte Absolute 0.03 K/mm3 (0.00-0.031); Immature Granulocyte Percent A 0.5 % (0-0.5); Lymphocytes Absolute Auto 0.99 K/mm3 (0.9-3.2); Lymphocytes Percent Auto 16.4 % (18.3-44.2); Mean Corpuscular Hemoglobin 30.8 pg (26-34); Mean Corpuscular Volume 93.4 fl (80-100); Mean Platelet Volume 10.6 fl (7.4-10.4); Monocytes Absolute Auto 0.8 K/mm3 (0.1-0.6); Neutrophils Absolute Auto 3.8 K/mm3 (1.3-6.7); Neutrophils Percent Auto 63.1 % (45.5-73.1); Platelet Count Result 155 k/mm3 (150-375); Red Blood Count 3.77 M/mm3 (4.6-6.20)
[2024-09-05 06:05] LABS: INR 1.4; Partial Thromboplastin Time 32.7 Seconds (22.3-36.8)
[2024-09-05 06:06] LABS: Alanine Aminotransferase 36 U/L (6-50); Albumin Level 3.8 g/dL (3.5-5.1); Alkaline Phosphatase 86 U/L (38-126); Anion Gap 10 mmol/L (4-12); Aspartate Amino Transferase 35 U/L (17-59); Bilirubin,Total 0.8 mg/dL (0.2-1.3); Blood Urea Nitrogen 64 mg/dL (9-20); Carbon Dioxide 28 mmol/L (22-30); Chloride 93 mmol/L (98-107); Estimated CRCL calculation 11 ml/min; Estimated Glomerular Filt Rate 6; Glucose 220 mg/dL (65-110); Magnesium 2.3 mg/dL (1.6-2.3); Sodium 131 mmol/L (137-145)
[2024-09-05] MEDS: LEVOTHYROXINE SODIUM 25 MCG TABLET PO (06:06)
[2024-09-05 08:21] LABS: Glucose Point of Care 215 mg/dl (65-105)
[2024-09-05] MEDS: ASPIRIN 81 MG CHEWABLE TABLET PO (08:43)
[2024-09-05] MEDS: INSULIN ASPART (*BKC) 100 UNITS/ML 7 UNITS SUB-Q ×3 (08:43→17:16)
[2024-09-05] MEDS: INSULIN ASPART (*BKC) 100 UNITS/ML SUB-Q (08:43)
[2024-09-05] MEDS: AMOXICILLIN/CLAVULANATE K 500-125 MG TAB 1 TABLET PO ×2 (08:43→21:51)
[2024-09-05] MEDS: EZETIMIBE 10 MG TABLET PO (08:44)
[2024-09-05] MEDS: ATORVASTATIN 40 MG TABLET 80 MG PO (08:44)
[2024-09-05] MEDS: GENTAMICIN SULFATE 0.1% OINT 15 GM TUBE 1 APPLIC TOPICAL ×2 (08:44→20:07)
[2024-09-05] MEDS: cycloSPORINE 0.4 ML OPHTH SOLUTION 1 DROP EACH EYE ×2 (08:44→22:00)
[2024-09-05] MEDS: calcitrioL 0.25 MCG CAPSULE PO (08:44)
[2024-09-05] MEDS: CALCIUM ACETATE 667 MG TABLET PO ×4 (08:44→21:51)
[2024-09-05] MEDS: AZITHROMYCIN 250 MG TABLET 500 MG PO (08:44)
[2024-09-05] MEDS: PANTOPRAZOLE 40 MG TABLET PO (08:45)
[2024-09-05] MEDS: METOPROLOL TARTRATE 25 MG TABLET PO ×2 (08:45→21:51)
[2024-09-05] MEDS: valACYclovir HCL 500 MG TABLET PO (08:45)
[2024-09-05] MEDS: TAMSULOSIN HCL 0.4 MG CAPSULE PO ×2 (08:45→16:58)
[2024-09-05] MEDS: INSULIN GLARGINE (*BKC) 100 UNITS/ML 35 UNITS SUB-Q ×2 (08:50→21:59)
--- NOTE | 2024-09-05 10:27 | PM.IMPN ---
Progress Note: A&P Assessment and Plan (1) Type 1 diabetes mellitus: Qualifiers: Diabetes mellitus complication detail: without coma Diabetes mellitus complication status: with ketoacidosis Qualified Code(s): E10.10 - Type 1 diabetes mellitus with ketoacidosis without coma Code(s): E10.9 - Type 1 diabetes mellitus without complications Status: Acute (2) DKA (diabetic ketoacidosis): Qualifiers: Diabetes mellitus complication detail: without coma Diabetes mellitus type: type 1 Qualified Code(s): E10.10 - Type 1 diabetes mellitus with ketoacidosis without coma Code(s): E11.10 - Type 2 diabetes mellitus with ketoacidosis without coma Status: Acute (3) Cholelithiasis: Qualifiers: Biliary obstruction: without biliary obstruction Cholecystitis presence: without cholecystitis Cholelithiasis location: gallbladder Qualified Code(s): K80.20 - Calculus of gallbladder without cholecystitis without obstruction Code(s): K80.20 - Calculus of gallbladder without cholecystitis without obstruction Status: Acute (4) End stage renal disease on dialysis: Code(s): N18.6 - End stage renal disease; Z99.2 - Dependence on renal dialysis Status: Acute (5) Essential hypertension: Code(s): I10 - Essential (primary) hypertension Status: Chronic (6) Paroxysmal atrial fibrillation: Code(s): I48.0 - Paroxysmal atrial fibrillation Status: Acute (7) Sepsis: Code(s): A41.9 - Sepsis, unspecified organism Status: Acute (8) Pancytopenia: Code(s): D61.818 - Other pancytopenia Status: Acute (9) Acute hypoxemic respiratory failure: Code(s): J96.01 - Acute respiratory failure with hypoxia Status: Acute (10) ESRD on peritoneal dialysis: Code(s): N18.6 - End stage renal disease; Z99.2 - Dependence on renal dialysis Status: Acute (11) Patient on peritoneal dialysis: Code(s): Z99.2 - Dependence on renal dialysis Status: Acute (12) End stage renal disease: Code(s): N18.6 - End stage renal disease Status: Chronic (13) End stage renal disease on dialysis: Code(s): N18.6 - End stage renal disease; Z99.2 - Dependence on renal dialysis Status: Chronic (14) End-stage renal disease on peritoneal dialysis: Code(s): N18.6 - End stage renal disease; Z99.2 - Dependence on renal dialysis Status: Acute (15) Hyperglycemia due to diabetes mellitus: Code(s): E11.65 - Type 2 diabetes mellitus with hyperglycemia Status: Acute (16) Type 1 diabetes mellitus with hyperglycemia: Code(s): E10.65 - Type 1 diabetes mellitus with hyperglycemia Status: Chronic Plan (1) Diabetic ketoacidosis: Code(s): E11.10 - Type 2 diabetes mellitus with ketoacidosis without coma Status: Acute Assessment and Plan: Pt will be given 1 L IVF bolus On admission further fluids were held due to patient's end-stage renal disease Insulin infusion was started and Q1H glucose monitoring was done Serial labs were done His anion gap closed and and patient has been transition to subcutaneous insulin he is tolerating p.o. diet Consult dietitian and special education paraeducator 09/04: Will increase Lantus today -continue Accu-Cheks and sliding scale insulin (2) ESRD on peritoneal dialysis: Code(s): N18.6 - End stage renal disease; Z99.2 - Dependence on renal dialysis Status: Acute Assessment and Plan: Patient is getting PD every night. Nephrology following (3) Sepsis: Code(s): A41.9 - Sepsis, unspecified organism Status: Acute Assessment and Plan: Patient met criteria for sepsis. Chest x-ray shows left lower lobe infiltrate suggestive of pneumonia. Patient also has right upper quadrant tenderness and has history of cholelithiasis Due to his as treatment disease be given conservative amount of IV fluids and 1 L fluid bolus was get Blood cultures, UA and micro are negative procalcitonin level was 1.6 CT chest abdomen pelvis could not be done as patient was unable to lay flat right upper quadrant ultrasound showed cholelithiasis but no evidence of cholecystitis, patient seen by surgery, no intervention at this time Although patient's abdominal pain is local and right upper quadrant and affluent was yellow and clear, television news producer sent peritoneal fluid for cytology and was negative and preliminary cultures are negative - discontinue vancomycin. - Switch Zosyn to p.o. Augmentin. Switch azithromycin to p.o. Status post Jonn-Synephrine for greater than 48 hours Pneumonia: Qualifiers: Pneumonia type: due to unspecified organism Laterality: left Lung location: lower lobe of lung Qualified Code(s): J18.9 - Pneumonia, unspecified organism Code(s): J18.9 - Pneumonia, unspecified organism Status: Acute Assessment and Plan: See above Cholelithiasis: Qualifiers: Cholelithiasis location: gallbladder Cholecystitis presence: without cholecystitis Biliary obstruction: without biliary obstruction Qualified Code(s): K80.20 - Calculus of gallbladder without cholecystitis without obstruction Code(s): K80.20 - Calculus of gallbladder without cholecystitis without obstruction Status: Acute Assessment and Plan: Tenderness in right upper quadrant. right upper quadrant ultrasound showed cholelithiasis with no evidence of cholecystitis. Patient was seen by General surgery and recommend low-fat diet at this time. No plan for surgical intervention at the moment General surgeon does not recommend surgical intervention except for true emergent basis. If he were to require surgery, he would be better suited at a tertiary care facility due to his very low cardiac ejection fraction and other medical issues. Abdominal pain: Code(s): R10.9 - Unspecified abdominal pain Status: Resolved Assessment and Plan: See above Hypertension: Code(s): I10 - Essential (primary) hypertension Status: Chronic Assessment and Plan: Blood pressure borderline Hold amlodipine and beta-umair upon arrival Blood pressure bumped up, resume beta-umair 25 mg b.i.d. p.o. Paroxysmal atrial fibrillation: Code(s): I48.0 - Paroxysmal atrial fibrillation Status: Acute Assessment and Plan: resume beta-umair anticoagulated with warfarin -INR 2.1 resume warfarin Severe systolic heart failure Echocardiogram September 2023 Left ventricular systolic function is severely reduced, estimated at 20-25%. Patient does not know he has severe chronic systolic heart failure Patient does not have AICD Repeat echocardiogram Consult cardiology for evaluation treatment Plan DVT prophylaxis -resume warfarin Stress ulcer prophylaxis -continue home PPI Nutrition - diet order Code Status - Full Code PT OT incentive spirometry up in chair Subjective Date/time seen: 09/05/24 10:27 Interval history: I saw exam patient today. Patient feels better, still has general weakness, shortness breast has improved significantly. Patient has some dry cough scant phlegm. Patient does not have abdomen pain today. Patient underwent peritoneal dialysis yesterday Afebrile, blood pressure stable, labs reviewed, hyponatremia is improving, a carbon normal, anion gap closed, glucose is controlled well. Patient is afebrile, blood pressure stable, Exam Narrative: GENERAL: Pleasant, in no acute distress. Well-nourished. - EYES: EOMI. Anicteric. - HENT: Moist mucous membranes. - LUNGS: Coarse breath sound bilateral base no wheezing, rhonchi, or rales. - CARDIOVASCULAR: Regular rate and rhythm. No murmur. No JVD. - ABDOMEN: Soft, non-tender and non-distended. No palpable masses. - EXTREMITIES: No edema. Peripheral pulses 2+. Non-tender. - NEUROLOGIC: No focal neurological deficits. CN II-XII grossly intact. General weakness - PSYCHIATRIC: Awake, Alert and oriented x 3. Appropriate mood and affect. - SKIN: No rashes or lesions. Warm. - LYMPH: No cervical lymphadenopathy. Objective Data Vital Signs Vital Signs: Vital Signs - 24 hr 09/04/24 16:00 09/04/24 20:00 09/04/24 22:05 Temperature 97.9 F Pulse Rate 96 96 Respiratory Rate 17 17 Blood Pressure 118/71 Pulse Oximetry 97 97 Oxygen Delivery Room Air Autopap Fraction of Inspired Oxygen 28 09/05/24 00:00 09/05/24 06:39 09/05/24 08:00 Temperature 98.5 F 98.9 F Pulse Rate 76 100 Respiratory Rate 16 18 Blood Pressure 113/63 141/75 H Pulse Oximetry 98 97 97 Oxygen Delivery Room Air Fraction of Inspired Oxygen 09/05/24 08:35 09/05/24 08:45 Temperature 97.9 F Pulse Rate 114 H 88 Respiratory Rate 18 Blood Pressure 143/78 H Pulse Oximetry 97 Oxygen Delivery Fraction of Inspired Oxygen Intake/Output Intake/Output: Intake & Output 09/02/24 09/03/24 09/04/24 09/05/24 23:59 23:59 23:59 23:59 Intake Total 1207.5 1200 600 840 Output Total 593 1302 1766 1027 Balance 614.5 -102 -1166 -187 Meds/Results Medications: Active Medications Generic Name Dose Route Start Last Admin Trade Name Freq PRN Reason Stop Dose Admin Acetaminophen 650 mg 08/31/24 19:35 Acetaminophen 325 Mg Tablet PO Q4H PRN Mild Pain (1-3) or Fever Albuterol 2.5 mg 08/31/24 13:59 Albuterol Sulfate Neb 2.5 Mg/3 Ml Inh INHALATION Q4HRT PRN Shortness Of Breath Or Wheezing Albuterol 1 puff 08/31/24 22:48 Albuterol Sulfate (*Sp) Aerosol 1 Puff INHALATION Q6HRT PRN shortness of breath or wheezing Amoxicillin/Clavulanate Potassium 1 tablet 09/03/24 12:40 09/05/24 08:43 Amoxicillin/Clavulanate K 500-125 Mg Tab PO 1 tablet Q12HR ASHLEY Administration Aspirin 81 mg 09/01/24 09:00 09/05/24 08:43 Aspirin 81 Mg Chewable Tablet PO 81 mg DAILY ASHLEY Administration Atorvastatin Calcium 80 mg 09/01/24 09:00 09/05/24 08:44 Atorvastatin 40 Mg Tablet PO 80 mg DAILY ASHLEY Administration Azithromycin 500 mg 09/03/24 09:00 09/05/24 08:44 Azithromycin 250 Mg Tablet PO 09/06/24 08:59 500 mg DAILY ASHLEY Administration Calcitriol 0.25 mcg 09/01/24 09:00 09/05/24 08:44 Calcitriol 0.25 Mcg Capsule PO 0.25 mcg QAM ASHLEY Administration Calcium Acetate 667 mg 08/31/24 21:00 09/05/24 08:44 Calcium Acetate 667 Mg Tablet PO 667 mg QID ASHLEY Administration Cyclobenzaprine HCl 10 mg 08/31/24 23:58 09/01/24 00:03 Cyclobenzaprine Hcl 10 Mg Tablet PO 10 mg Q8H PRN Administration muscle spasm Cyclosporine 1 drop 08/31/24 22:50 09/05/24 08:44 Cyclosporine 0.4 Ml Ophth Solution EACH EYE 1 drop Q12HR ASHLEY Administration Dextrose 12.5 gm 09/01/24 10:48 Dextrose 50% 25 Gm/50 Ml Syringe IV PUSH PRN PRN Hypoglycemia Protocol Ezetimibe 10 mg 09/01/24 09:00 09/05/24 08:44 Ezetimibe 10 Mg Tablet PO 10 mg DAILY ASHLEY Administration Erythromycin 1 applic 08/31/24 23:05 09/04/24 21:06 Erythromycin Ophth Ointment 1 Gm Tube EACH EYE 1 applic HS ASHLEY Administration Gentamicin Sulfate 1 applic 09/01/24 17:00 09/05/24 08:44 Gentamicin Sulfate 0.1% Oint 15 Gm Tube TOPICAL 1 applic DAILY ASHLEY Administration Glucagon 1 mg 09/01/24 10:48 Glucagon For Inj 1 Mg Vial IM PRN PRN Hypoglycemia Protocol Glucose 15 gm 09/01/24 10:48 Glucose Oral Gel 15 Gm Of Glucse In 37.5 Gm Tube PO PRN PRN Hypoglycemia Protocol Guaifenesin/Dextromethorphan 10 ml 09/04/24 10:00 09/05/24 05:49 Guaifenesin/Dextromethorphan 10 Ml Udc PO 09/06/24 09:59 10 ml Q4H ASHLEY Administration Hydromorphone HCl 0.5 mg 08/31/24 19:39 Hydromorphone Hcl Inj (*Crx) 1 Mg/Ml Syr IV PUSH Q3H PRN Pain Rated 7-10 Dextrose 1,000 mls @ 100 mls/hr 09/01/24 10:48 Dextrose 5% 1,000 Ml IVPB PRN PRN Hypoglycemia Protocol Insulin Aspart 4 - 8 units 09/01/24 12:00 09/05/24 08:43 Insulin Aspart (*Bkc) 100 Units/Ml SUB-Q 4 units TIDWM ASHLEY Administration Protocol Insulin Aspart 2 - 4 units 09/01/24 21:00 09/04/24 21:06 Insulin Aspart (*Bkc) 100 Units/Ml SUB-Q Not Given HS ASHLEY Protocol Insulin Aspart 7 units 09/04/24 12:00 09/05/24 08:43 Insulin Aspart (*Bkc) 100 Units/Ml SUB-Q 7 units TIDWM ASHLEY Administration Insulin Glargine 35 units 09/04/24 08:49 09/05/24 08:50 Insulin Glargine (*Bkc) 100 Units/Ml SUB-Q 35 units Q12HR ASHLEY Administration Levothyroxine Sodium 25 mcg 09/01/24 06:30 09/05/24 06:06 Levothyroxine Sodium 25 Mcg Tablet PO 25 mcg DAILY@0630 ASHLEY Administration Metoprolol Tartrate 25 mg 09/03/24 09:00 09/05/24 08:45 Metoprolol Tartrate 25 Mg Tablet PO 25 mg Q12HR ASHLEY Administration Nitroglycerin 0.4 mg 08/31/24 22:48 Nitroglycerin Sl 0.4 Mg Tablet SUBLINGUAL Q5MIN PRN Chest Pain Oxycodone HCl 5 mg 08/31/24 19:39 09/01/24 22:36 Oxycodone Hcl (*Crx) 5 Mg Tab Ir PO 5 mg Q4H PRN Administration Pain Rated 7-10 Pantoprazole Sodium 40 mg 09/01/24 09:00 09/05/24 08:45 Pantoprazole 40 Mg Tablet PO 40 mg QAM ASHLEY Administration Tamsulosin HCl 0.4 mg 08/31/24 19:45 09/05/24 08:45 Tamsulosin Hcl 0.4 Mg Capsule PO 0.4 mg BID ASHLEY Administration Valacyclovir HCl 500 mg 09/05/24 09:00 09/05/24 08:45 Valacyclovir Hcl 500 Mg Tablet PO 500 mg DAILY ASHLEY Administration Warfarin Sodium 3 mg 08/31/24 17:00 09/04/24 17:20 Warfarin (*Pbkc) 3 Mg Tablet PO 3 mg DAILY@1700 ASHLEY Administration Radiology Results: ITS Impressions Chest X-Ray 08/31/24 13:03 IMPRESSION: Patchy left mid and particularly lower lung infiltrate and/or atelectasis, increased since 08/18/2024 Small left pleural effusion Abdomen Ultrasound 09/01/24 09:21 IMPRESSION: Cholelithiasis Labs Labs: Laboratory Results - last 24 hr 09/04/24 09/04/24 09/04/24 11:57 17:24 20:43 WBC RBC Hgb Hct MCV MCH MCHC RDW Plt Count MPV Immature Gran % (Auto) Neut % (Auto) Lymph % (Auto) [place] % (Auto) Eos % (Auto) Baso % (Auto) Lymph # (Auto) [place] # (Auto) Eos # (Auto) Baso # (Auto) Abs Immat Gran (auto) Absolute Neuts (auto) Absolute Nucleated RBC Nucleated RBC % PT INR APTT Sodium Potassium Chloride Carbon Dioxide Anion Gap BUN Creatinine Estim Creat Clear Calc Estimated GFR Glucose POC Capillary Glucose 136 H 134 H 169 H Calcium Magnesium Total Bilirubin AST ALT Alkaline Phosphatase Total Protein Albumin 09/05/24 09/05/24 05:28 08:16 WBC 6.0 RBC 3.77 L Hgb 11.6 L Hct 35.2 L MCV 93.4 MCH 30.8 MCHC 33.0 RDW 15.0 H Plt Count 155 MPV 10.6 H Immature Gran % (Auto) 0.5 Neut % (Auto) 63.1 Lymph % (Auto) 16.4 L [place] % (Auto) 14.0 H Eos % (Auto) 5.5 H Baso % (Auto) 0.5 Lymph # (Auto) 0.99 [place] # (Auto) 0.8 H Eos # (Auto) 0.3 Baso # (Auto) 0.0 Abs Immat Gran (auto) 0.03 Absolute Neuts (auto) 3.8 Absolute Nucleated RBC 0.000 Nucleated RBC % 0.0 PT 18.0 H D INR 1.4 APTT 32.7 Sodium 131 L Potassium 4.0 Chloride 93 L Carbon Dioxide 28 Anion Gap 10 BUN 64 H Creatinine 9.10 H Estim Creat Clear Calc 11 Estimated GFR 6 L Glucose 220 H POC Capillary Glucose 215 H Calcium 9.0 Magnesium 2.3 Total Bilirubin 0.8 AST 35 ALT 36 Alkaline Phosphatase 86 Total Protein 7.0 Albumin 3.8
[2024-09-05 11:47] LABS: Glucose Point of Care 178 mg/dl (65-105)
--- NOTE | 2024-09-05 12:20 | P.CONCA_ITS ---
Assessment and Plan Assessment and plan (1) Ischemic cardiomyopathy: Code(s): I25.5 - Ischemic cardiomyopathy Status: Acute (2) CAD (coronary artery disease): Code(s): I25.10 - Atherosclerotic heart disease of [place] coronary artery without angina pectoris Status: Acute (3) Aortic stenosis: Code(s): I35.0 - Nonrheumatic aortic (valve) stenosis Status: Acute Plan 54-year-old man with CAD status post CABG (BRICE-LAD, SVG-OM, SVG to rPDA) in 09/2023 at [facility], moderate sp 25mm OnX mechanical valve ([facility] 09/2023), Chronic Systolic Heart Failure, and ESRD on PD presented with DKA in setting of diabetes Chronic systolic heart failure -known to have LVEF of 25-30%; unsure if this has recovered without records from [facility] -follows with Dr. 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 Ortega ([facility]) History of Present Illness History of Present Illness Consult date/time: 09/05/24 12:20 Requesting physician: Karen Horowitz MD Consult reason: congestive heart failure Reason For Visit: dka, pneumonia Narrative: 54-year-old man with CAD status post CABG (BRICE-LAD, SVG-OM, SVG to rPDA) in 09/2023 at [facility], moderate sp 25mm OnX mechanical valve ([facility] 09/2023), Chronic Systolic Heart Failure, and ESRD on PD presented with DKA secondary to diabetes type 1. He occasionally has exertional shortness of breath especially on days when he increases his fluid intake. There will also be other days where he feels well and is able to walk around the grocery store without any significant exertional shortness of breath. It would appear that his maximum exercise tolerance would be walking around the grocery store with a cart. Denies any chest pain. Review of Systems 2 Cardiovascular: Cardiovascular: Reports as per HPI Respiratory: Respiratory: Reports as per HPI [facility] Past Medical History Medical History Chronic back pain Hematuria Right hand dominant Insulin dependent diabetes mellitus Chronic anticoagulation Paroxysmal atrial fibrillation Renal osteodystrophy Seizure X1 with etiology unknown End-stage renal disease on peritoneal dialysis Essential hypertension Gout Deep venous thrombosis Chronic right popliteal DVT. Coronary artery disease History of several stents including complex procedure at [facility] w/ stenting of a heavily calcified CX on OM using shockwave treatment. Gastroesophageal reflux disease Congestive heart failure Echocardiogram May 2017 EF of 50% with hypokinetic apical, inferior and basal inferior lateral segment, mild enlargement of left atrium. Anemia in chronic kidney disease Type 1 diabetes mellitus Onset around age 13. Diabetic retinopathy Diabetic peripheral neuropathy Obstructive sleep apnea With inconsistent CPAP use. Secondary hyperparathyroidism of renal origin Anxiety Arthritis Hyperlipidemia Surgical History Surgical History S/P triple vessel bypass Sep 2023; [facility] History of coronary angioplasty with insertion of stent Drug-eluting stents for high-grade OM 99% occlusion 05/2022. History of hernia repair Peritoneal dialysis catheter in place History of cataract extraction With lens implant History of open reduction and internal fixation (ORIF) procedure (1982) Left lower extremity fracture. And the right hip pinning when he was in the 8th grade History of arthroscopy of left knee History of anterior cruciate ligament surgery (2000) Left knee History of bilateral carpal tunnel release Right 05/03/2018. Left 06/02/2018. History of appendectomy (2006) History of cardiac catheterization 01/21/2021 catheterization at [facility], Dr. Hoover done: Little change from prior catheterization. Patent stents in the RCA and PDA. Previously jailed posterolateral is occluded and development of a 50% stenosis of a branch of om 1. Normal LV function. :August 2019 demonstrated patent stents with 40% stenosis of 1 vessel with no stents or angioplasty performed per patient report. :November 2018 at [facility] - stent x3. :March 2017 demonstrating mild diffuse coronary disease 80% lesion small sub branch of obtuse marginal 1 and 90% stenosis distal RCA into the origin of the PDA with PTCA and stent to the RPDA/distal RCA performed by Dr. Petit. Family History Family History Father , in his late 60s Acute myocardial infarction Premature coronary artery disease; <65yo CHF (congestive heart failure) Dementia Hypertension S/P triple vessel bypass 1980s Mother Lung cancer Hypertension Daughter Celiac disease Social History Social History Social History: Surrogate medical decision maker: Hodan Pilo (daughter) or Lorne Pilo (brother). Code status: Full code. Smoking status: Never smoker Second hand tobacco smoke exposure: No Alcohol intake: never Substance use: never Substance use type: does not use Do You Feel Safe in your Home?: Yes Lack of Transportation: No Lack of Food: Never True Current Housing: I Have Housing Concerned About Future Housing: No Difficulty Paying Gas/Electric Bills: No Difficulty Paying for Meds: No Currently Unemployed: No Education: Decline to Answer Difficulty w/ Childcare or Family Care: No Living arrangements: alone Additional living arrangements comments: He is single and has 3 children. 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 Spiritual care concerns: No Agree to blood products: Yes Meds Home Medications and Allergies Home Medications ?Medication ?Instructions ?Recorded ?Confirmed ?Type calcitriol 0.25 mcg capsule 0.25 mcg PO QAM 06/04/19 08/31/24 History ergocalciferol (vitamin D2) 1,250 50,000 unit PO WEEKLY 06/04/19 08/31/24 History mcg (50,000 unit) capsule (Vitamin D2) nitroglycerin 0.4 mg sublingual 0.4 mg sublingual Q5-15M PRN Chest 06/04/19 08/31/24 History tablet Pain ezetimibe 10 mg tablet (Zetia) 10 mg PO DAILY 09/09/19 08/31/24 History cetirizine 10 mg tablet (All Day 10 mg PO DAILY 12/26/19 08/31/24 History Allergy (cetirizine)) atorvastatin 80 mg tablet 80 mg PO DAILY 11/26/20 08/31/24 History albuterol sulfate 90 mcg/actuation 1 inh inhalation QID PRN shortness 01/12/23 08/31/24 Rx aerosol inhaler (ProAir HFA) of breath or wheezing #8.5 grams potassium chloride 20 mEq 20 meq PO DAILY Cramps 05/20/23 08/31/24 History tablet,extended release febuxostat 40 mg tablet 40 mg PO QPM 07/25/23 08/31/24 History gemfibrozil 600 mg tablet 600 mg PO Q12H 07/25/23 08/31/24 History linaclotide 72 mcg capsule 72 mcg PO DAILY PRN Diarrhea 07/25/23 08/31/24 History (Linzess) icosapent ethyl 1 gram capsule 1 g PO QID 02/16/24 08/31/24 History (Vascepa) torsemide 100 mg tablet 100 mg PO DAILY 02/16/24 08/31/24 History warfarin 3 mg tablet 3 mg PO DAILY #30 tabs 03/01/24 08/31/24 Rx insulin pump cart,automated,BT #45 ea 05/16/24 08/31/24 Rx (Omnipod 5 G6 Pods (Gen 5) subcutaneous cartridge) levothyroxine 25 mcg tablet 25 mcg PO DAILY #90 tabs 05/16/24 08/31/24 Rx omeprazole 20 mg capsule,delayed 20 mg PO DAILY 06/06/24 08/31/24 History release amlodipine 10 mg tablet 10 mg PO HS 07/30/24 08/31/24 History calcium acetate(phosphat bind) 667 667 mg PO QID 07/30/24 08/31/24 History mg capsule erythromycin 5 mg/gram (0.5 %) eye 1 applic EACH EYE HS 07/30/24 08/31/24 History ointment glucagon 1 mg/0.2 mL subcutaneous See Rx Instructions .Route 07/30/24 08/31/24 History auto-injector (Gvoke HypoPen .COMPLEX PRN Hypoglycemia 2-Pack) insulin aspart U-100 100 unit/mL 5 unit (0.05 mL) subcut TIDWMEAL 08/02/24 08/31/24 Rx (3 mL) subcutaneous pen (Novolog #15 mL FlexPen U-100 Insulin aspart) pen needle, diabetic 32 gauge x #100 ea 08/05/24 08/31/24 Rx 5/32 (BD Lucrecia 2nd Gen Pen Needle) cyclobenzaprine 10 mg tablet 5 - 10 mg (0.5 - 1 x 10 mg) PO TID 08/11/24 08/31/24 Rx PRN muscle spasm #10 tabs famotidine 40 mg tablet 40 mg PO HS 08/17/24 08/31/24 History lidocaine 5 % topical patch 1 patch transdermal Q24H 08/17/24 08/31/24 History metoprolol succinate 25 mg 50 mg PO DAILY 08/17/24 08/31/24 History tablet,extended release 24 hr aspirin 81 mg capsule 81 mg PO DAILY 08/31/24 08/31/24 History colchicine 0.6 mg capsule 0.6 mg PO 3XW 08/31/24 08/31/24 History cyclosporine 0.05 % eye drops in a 1 drp EACH EYE Q12H 08/31/24 08/31/24 History dropperette gentamicin 0.1 % topical cream 1 applic topical HS 08/31/24 08/31/24 History tamsulosin 0.4 mg capsule 0.4 mg PO BID 08/31/24 08/31/24 History valacyclovir 500 mg tablet 500 mg PO Q12H 08/31/24 08/31/24 History Allergies Allergy/AdvReac Type Severity Reaction Status Date / Time allopurinol Allergy Severe Other Verified 08/17/24 08:24 iodine Allergy Severe Rash Verified 08/17/24 08:24 iohexol (From CONTRAST - CT, Allergy Severe Difficulty Verified 08/17/24 08:24 XRAY) Breathing ticagrelor Allergy Intermediate Rash Verified 08/17/24 08:24 Vital Signs Vital Signs - 24 hr 09/04/24 16:00 09/04/24 20:00 09/04/24 22:05 Temperature 36.6 C Pulse Rate 96 96 Respiratory Rate 17 17 Blood Pressure 118/71 Pulse Oximetry 97 97 Oxygen Delivery Room Air Autopap Fraction of Inspired Oxygen 09/05/24 00:00 09/05/24 06:39 09/05/24 08:00 Temperature 36.9 C 37.2 C Pulse Rate 76 100 Respiratory Rate 16 18 Blood Pressure 113/63 141/75 H Pulse Oximetry 98 97 97 Oxygen Delivery Room Air Fraction of Inspired Oxygen 09/05/24 08:35 09/05/24 08:45 Temperature 36.6 C Pulse Rate 114 H 88 Respiratory Rate 18 Blood Pressure 143/78 H Pulse Oximetry 97 Oxygen Delivery Fraction of Inspired Oxygen Exam 2 Const: General: comfortable HENMT: Mouth: Yes moist mucous membranes Eyes: EOM: EOMs intact bilaterally Neck: Neck: no JVD Resp: Auscultation: clear to auscultation bilaterally Cardio: Rate: regular rate Rhythm: regular rhythm GI: GI Palp: Yes Soft to palpation Extrem: General: pedal edema Results Labs and Meds 09/05/24 05:28 09/05/24 05:28 Lab results: Cardiac Enzymes 09/05/24 Range/Units 05:28 AST 35 (17-59) U/L Coagulation 09/05/24 Range/Units 05:28 PT 18.0 H D (11.1-14.7) Seconds APTT 32.7 (22.3-36.8) Seconds CBC 09/05/24 Range/Units 05:28 WBC 6.0 (4.5-10.0) K/mm3 RBC 3.77 L (4.6-6.20) M/mm3 Hgb 11.6 L (14.0-18.0) g/dL Hct 35.2 L (42.0-52.0) % Plt Count 155 (150-375) k/mm3 Lymph # (Auto) 0.99 (0.9-3.2) K/mm3 [place] # (Auto) 0.8 H (0.1-0.6) K/mm3 Eos # (Auto) 0.3 (0-0.3) K/mm3 Baso # (Auto) 0.0 (0.0-0.1) K/mm3 Comprehensive Metabolic Panel 09/05/24 Range/Units 05:28 Sodium 131 L (137-145) mmol/L Potassium 4.0 (3.4-5.0) mmol/L Chloride 93 L (98-107) mmol/L Carbon Dioxide 28 (22-30) mmol/L BUN 64 H (9-20) mg/dL Creatinine 9.10 H (0.7-1.3) mg/dL Glucose 220 H (65-110) mg/dL Calcium 9.0 (8.4-10.2) mg/dL AST 35 (17-59) U/L ALT 36 (6-50) U/L Alkaline Phosphatase 86 (38-126) U/L Total Protein 7.0 (6.3-8.2) g/dL Albumin 3.8 (3.5-5.1) g/dL Intake and Output 09/04/24 09/05/24 09/05/24 23:59 07:59 15:59 Intake Total 120 600 240 Output Total 50 1027 Balance 70 -427 240 Intake: Oral 120 600 240 Output: Urine 50 Peritoneal Dialysis Total Ultra 1027 Filtration Patient Weight 09/05/24 23:59 Weight 120.2 kg
--- NOTE | 2024-09-05 16:45 | P.PNNP_ITS ---
Progress Note: A&P Assessment and Plan (1) End-stage renal disease (ESRD): Code(s): N18.6 - End stage renal disease Status: Acute Assessment and Plan: * ESRD: Peritoneal dialysis. His peritoneal dialysate effluent is clear, however will make sure he does not have infection in light of the pain in the right upper quadrant. Peritoneal dialysis was supervised. He does have gallstones and this may well be responsible too. * Type 1 diabetes mellitus with hyperglycemia, DKA presentation: Insulin, discussed with patient going needs to get on regular insulin in stable from the pump * Hyponatremia in the presence of ESRD: Fluid removed * Possible pneumonia with chest x-ray showing infiltrate: Ceftriaxone and azithromycin * History of sleep apnea on CPAP, maintain CPAP * Anemia of chronic kidney disease: On long acting erythrocyte stimulating agent as needed, usually his hemoglobin sticks around 12 grams/deciliter * Secondary hyperparathyroidism: On calcitriol therapy * History of coronary artery disease. * Diabetes mellitus: Control per ICU team Peritoneal dialysis: -prescriptions altered to his regular schedule -Icodextrin not available in the hospital in the [place] use Dianeal 2.5% -Peritoneal dialysis supervised -look at cultures 09/02: --ESRD: UF is 433 mls,is NOT infected intra peritoneally --maintain same, is not able to use icodextrin in hospital --needs to change to BID insulin to prevent these events --PD orders maintained 09/03: --doing better with ultrafiltration and fluid situation better maintain same dialysis orders --maintain sugar control with insulin --hyponatremia secondary to fluid retention as well as high blood sugars --peritoneal dialysis orders to maintain and supervised dialysis 09/04/2024: --maintain same Dianeal concentration --Fluid state slowly better --sugars up and down --Supervise PD Subjective Date/time seen: (09/05/24 16:45: Date entry time) This is a delayed entry form 09/04/2024 See at 0930AM or so. Interval history: PERITONEAL DIALYSIS UF 1775 MLS PD orders to continue PD supervised D/w dialysis staff Fluid is clear PD fluid cell count noted, ANC 10, no evidence for an infection S: Up in a chair when seem PD tolerated Breathing better Exam Narrative: VSS noted WD WN, up in chair, looks swollen up, JVD is hard to see, irregular rhythm rate, tachycardia, no respiratory distress, soft, non tender abdomen, PD catheter in place, edematous legs, alert, oriented x 3 no tremors, cognition intact edema has decreased in lower extremities Objective Data Vital Signs Vital Signs: Vital Signs - 24 hr 09/04/24 20:00 09/04/24 22:05 09/05/24 00:00 Temperature 36.9 C Pulse Rate 96 76 Respiratory Rate 17 16 Blood Pressure 113/63 Pulse Oximetry 97 98 Oxygen Delivery Room Air Autopap Fraction of Inspired Oxygen 28 09/05/24 06:39 09/05/24 08:00 09/05/24 08:35 Temperature 37.2 C 36.6 C Pulse Rate 100 114 H Respiratory Rate 18 18 Blood Pressure 141/75 H 143/78 H Pulse Oximetry 97 97 97 Oxygen Delivery Room Air Fraction of Inspired Oxygen 09/05/24 08:45 09/05/24 15:16 Temperature 36.1 C L Pulse Rate 88 108 H Respiratory Rate 18 Blood Pressure 128/74 Pulse Oximetry 98 Oxygen Delivery Fraction of Inspired Oxygen Intake/Output Intake/Output: Intake & Output 09/02/24 09/03/24 09/04/24 09/05/24 23:59 23:59 23:59 23:59 Intake Total 1207.5 6600 427 1348 Output Total 593 1302 1766 1027 Balance 614.5 -102 1166 53 Meds/Results Medications: Active Medications Generic Name Dose Route Start Last Admin Trade Name Freq PRN Reason Stop Dose Admin Acetaminophen 650 mg 08/31/24 19:35 Acetaminophen 325 Mg Tablet PO Q4H PRN Mild Pain (1-3) or Fever Albuterol 2.5 mg 08/31/24 13:59 Albuterol Sulfate Neb 2.5 Mg/3 Ml Inh INHALATION Q4HRT PRN Shortness Of Breath Or Wheezing Albuterol 1 puff 08/31/24 22:48 Albuterol Sulfate (*Sp) Aerosol 1 Puff INHALATION Q6HRT PRN shortness of breath or wheezing Amoxicillin/Clavulanate Potassium 1 tablet 09/03/24 12:40 09/05/24 08:43 Amoxicillin/Clavulanate K 500-125 Mg Tab PO 1 tablet Q12HR ASHLEY Administration Aspirin 81 mg 09/01/24 09:00 09/05/24 08:43 Aspirin 81 Mg Chewable Tablet PO 81 mg DAILY ASHLEY Administration Atorvastatin Calcium 80 mg 09/01/24 09:00 09/05/24 08:44 Atorvastatin 40 Mg Tablet PO 80 mg DAILY ASHLEY Administration Azithromycin 500 mg 09/03/24 09:00 09/05/24 08:44 Azithromycin 250 Mg Tablet PO 09/06/24 08:59 500 mg DAILY ASHLEY Administration Calcitriol 0.25 mcg 09/01/24 09:00 09/05/24 08:44 Calcitriol 0.25 Mcg Capsule PO 0.25 mcg QAM ASHLEY Administration Calcium Acetate 667 mg 08/31/24 21:00 09/05/24 12:52 Calcium Acetate 667 Mg Tablet PO 667 mg QID ASHLEY Administration Cyclobenzaprine HCl 10 mg 08/31/24 23:58 09/01/24 00:03 Cyclobenzaprine Hcl 10 Mg Tablet PO 10 mg Q8H PRN Administration muscle spasm Cyclosporine 1 drop 08/31/24 22:50 09/05/24 08:44 Cyclosporine 0.4 Ml Ophth Solution EACH EYE 1 drop Q12HR ASHLEY Administration Dextrose 12.5 gm 09/01/24 10:48 Dextrose 50% 25 Gm/50 Ml Syringe IV PUSH PRN PRN Hypoglycemia Protocol Ezetimibe 10 mg 09/01/24 09:00 09/05/24 08:44 Ezetimibe 10 Mg Tablet PO 10 mg DAILY ASHLEY Administration Erythromycin 1 applic 08/31/24 23:05 09/04/24 21:06 Erythromycin Ophth Ointment 1 Gm Tube EACH EYE 1 applic HS ASHLEY Administration Gentamicin Sulfate 1 applic 09/01/24 17:00 09/05/24 08:44 Gentamicin Sulfate 0.1% Oint 15 Gm Tube TOPICAL 1 applic DAILY ASHLEY Administration Glucagon 1 mg 09/01/24 10:48 Glucagon For Inj 1 Mg Vial IM PRN PRN Hypoglycemia Protocol Glucose 15 gm 09/01/24 10:48 Glucose Oral Gel 15 Gm Of Glucse In 37.5 Gm Tube PO PRN PRN Hypoglycemia Protocol Guaifenesin/Dextromethorphan 10 ml 09/04/24 10:00 09/05/24 10:45 Guaifenesin/Dextromethorphan 10 Ml Udc PO 09/06/24 09:59 10 ml Q4H ASHLEY Administration Hydromorphone HCl 0.5 mg 08/31/24 19:39 Hydromorphone Hcl Inj (*Crx) 1 Mg/Ml Syr IV PUSH Q3H PRN Pain Rated 7-10 Dextrose 1,000 mls @ 100 mls/hr 09/01/24 10:48 Dextrose 5% 1,000 Ml IVPB PRN PRN Hypoglycemia Protocol Insulin Aspart 4 - 8 units 09/01/24 12:00 09/05/24 12:48 Insulin Aspart (*Bkc) 100 Units/Ml SUB-Q Not Given TIDWM ASHLEY Protocol Insulin Aspart 2 - 4 units 09/01/24 21:00 09/04/24 21:06 Insulin Aspart (*Bkc) 100 Units/Ml SUB-Q Not Given HS ASHLEY Protocol Insulin Aspart 7 units 09/04/24 12:00 09/05/24 12:52 Insulin Aspart (*Bkc) 100 Units/Ml SUB-Q 7 units TIDWM ASHLEY Administration Insulin Glargine 35 units 09/04/24 08:49 09/05/24 08:50 Insulin Glargine (*Bkc) 100 Units/Ml SUB-Q 35 units Q12HR ASHLEY Administration Levothyroxine Sodium 25 mcg 09/01/24 06:30 09/05/24 06:06 Levothyroxine Sodium 25 Mcg Tablet PO 25 mcg DAILY@0630 ASHLEY Administration Metoprolol Tartrate 25 mg 09/03/24 09:00 09/05/24 08:45 Metoprolol Tartrate 25 Mg Tablet PO 25 mg Q12HR ASHLEY Administration Nitroglycerin 0.4 mg 08/31/24 22:48 Nitroglycerin Sl 0.4 Mg Tablet SUBLINGUAL Q5MIN PRN Chest Pain Oxycodone HCl 5 mg 08/31/24 19:39 09/01/24 22:36 Oxycodone Hcl (*Crx) 5 Mg Tab Ir PO 5 mg Q4H PRN Administration Pain Rated 7-10 Pantoprazole Sodium 40 mg 09/01/24 09:00 09/05/24 08:45 Pantoprazole 40 Mg Tablet PO 40 mg QAM ASHLEY Administration Perflutren Lipid Microsphere 0 ml 09/05/24 10:48 Perflutren Lipid Microspheres 1.5 Ml Vial Diluted To 10 Ml Total Volume IV PUSH 09/08/24 10:48 ONCE PRN adequate visualization Protocol Tamsulosin HCl 0.4 mg 08/31/24 19:45 09/05/24 08:45 Tamsulosin Hcl 0.4 Mg Capsule PO 0.4 mg BID ASHLEY Administration Valacyclovir HCl 500 mg 09/05/24 09:00 09/05/24 08:45 Valacyclovir Hcl 500 Mg Tablet PO 500 mg DAILY ASHLEY Administration Warfarin Sodium 3 mg 08/31/24 17:00 09/04/24 17:20 Warfarin (*Pbkc) 3 Mg Tablet PO 3 mg DAILY@1700 ASHLEY Administration Radiology Results: ITS Impressions Chest X-Ray 08/31/24 13:03 IMPRESSION: Patchy left mid and particularly lower lung infiltrate and/or atelectasis, increased since 08/18/2024 Small left pleural effusion Abdomen Ultrasound 09/01/24 09:21 IMPRESSION: Cholelithiasis Labs Labs: Laboratory Results - last 24 hr 09/04/24 09/04/24 09/05/24 17:24 20:43 05:28 WBC 6.0 RBC 3.77 L Hgb 11.6 L Hct 35.2 L MCV 93.4 MCH 30.8 MCHC 33.0 RDW 15.0 H Plt Count 155 MPV 10.6 H Immature Gran % (Auto) 0.5 Neut % (Auto) 63.1 Lymph % (Auto) 16.4 L [place] % (Auto) 14.0 H Eos % (Auto) 5.5 H Baso % (Auto) 0.5 Lymph # (Auto) 0.99 [place] # (Auto) 0.8 H Eos # (Auto) 0.3 Baso # (Auto) 0.0 Abs Immat Gran (auto) 0.03 Absolute Neuts (auto) 3.8 Absolute Nucleated RBC 0.000 Nucleated RBC % 0.0 PT 18.0 H D INR 1.4 APTT 32.7 Sodium 131 L Potassium 4.0 Chloride 93 L Carbon Dioxide 28 Anion Gap 10 BUN 64 H Creatinine 9.10 H Estim Creat Clear Calc 11 Estimated GFR 6 L Glucose 220 H POC Capillary Glucose 134 H 169 H Calcium 9.0 Magnesium 2.3 Total Bilirubin 0.8 AST 35 ALT 36 Alkaline Phosphatase 86 Total Protein 7.0 Albumin 3.8 09/05/24 09/05/24 08:16 11:44 WBC RBC Hgb Hct MCV MCH MCHC RDW Plt Count MPV Immature Gran % (Auto) Neut % (Auto) Lymph % (Auto) [place] % (Auto) Eos % (Auto) Baso % (Auto) Lymph # (Auto) [place] # (Auto) Eos # (Auto) Baso # (Auto) Abs Immat Gran (auto) Absolute Neuts (auto) Absolute Nucleated RBC Nucleated RBC % PT INR APTT Sodium Potassium Chloride Carbon Dioxide Anion Gap BUN Creatinine Estim Creat Clear Calc Estimated GFR Glucose POC Capillary Glucose 215 H 178 H Calcium Magnesium Total Bilirubin AST ALT Alkaline Phosphatase Total Protein Albumin
--- NOTE | 2024-09-05 16:48 | PM.PNNEP ---
Progress Note: A&P Assessment and Plan (1) End-stage renal disease (ESRD): Code(s): N18.6 - End stage renal disease Status: Acute Assessment and Plan: ESRD: Peritoneal dialysis. His peritoneal dialysate effluent is clear, however will make sure he does not have infection in light of the pain in the right upper quadrant. Peritoneal dialysis was supervised. He does have gallstones and this may well be responsible too. Type 1 diabetes mellitus with hyperglycemia, DKA presentation: Insulin, discussed with patient going needs to get on regular insulin in stable from the pump Hyponatremia in the presence of ESRD: Fluid removed Possible pneumonia with chest x-ray showing infiltrate: Ceftriaxone and azithromycin History of sleep apnea on CPAP, maintain CPAP Anemia of chronic kidney disease: On long acting erythrocyte stimulating agent as needed, usually his hemoglobin sticks around 12 grams/deciliter Secondary hyperparathyroidism: On calcitriol therapy History of coronary artery disease. Diabetes mellitus: Control per ICU team Peritoneal dialysis: -prescriptions altered to his regular schedule -Icodextrin not available in the hospital in the [place] use Dianeal 2.5% -Peritoneal dialysis supervised -look at cultures 09/02: --ESRD: UF is 433 mls,is NOT infected intra peritoneally --maintain same, is not able to use icodextrin in hospital --needs to change to BID insulin to prevent these events --PD orders maintained 09/03: --doing better with ultrafiltration and fluid situation better maintain same dialysis orders --maintain sugar control with insulin --hyponatremia secondary to fluid retention as well as high blood sugars --peritoneal dialysis orders to maintain and supervised dialysis 09/04/2024: --maintain same Dianeal concentration --Fluid state slowly better --sugars up and down --Supervise PD 09/05: --awaiting echo --fluid retention is stable --maintain PD, same Dianeal 2.5% --supervise PD Subjective Date/time seen: 09/05/24 16:48 Interval history: Seen earlier this afternoon at 1.30PM or son Sitting up in a chair Still with swelling PERITONEAL DIALYSIS UF 1000MLS PD orders to continue PD supervised D/w dialysis staff Fluid is clear Exam Narrative: VSS noted WD WN, up in chair, looks swollen up, JVD is hard to see, irregular rhythm rate, tachycardia, no respiratory distress, soft, non tender abdomen, PD catheter in place, edematous legs and feet, alert, oriented x 3 no tremors, cognition intact edema has decreased in lower extremities Objective Data Vital Signs Vital Signs: Vital Signs - 24 hr 09/04/24 20:00 09/04/24 22:05 09/05/24 00:00 Temperature 36.9 C Pulse Rate 96 76 Respiratory Rate 17 16 Blood Pressure 113/63 Pulse Oximetry 97 98 Oxygen Delivery Room Air Autopap Fraction of Inspired Oxygen 28 09/05/24 06:39 09/05/24 08:00 09/05/24 08:35 Temperature 37.2 C 36.6 C Pulse Rate 100 114 H Respiratory Rate 18 18 Blood Pressure 141/75 H 143/78 H Pulse Oximetry 97 97 97 Oxygen Delivery Room Air Fraction of Inspired Oxygen 09/05/24 08:45 09/05/24 15:16 Temperature 36.1 C L Pulse Rate 88 108 H Respiratory Rate 18 Blood Pressure 128/74 Pulse Oximetry 98 Oxygen Delivery Fraction of Inspired Oxygen Intake/Output Intake/Output: Intake & Output 09/02/24 09/03/24 09/04/24 09/05/24 23:59 23:59 23:59 23:59 Intake Total 1207.5 8413 530 4954 Output Total 593 1302 1766 1027 Balance 614.5 -102 -1166 53 Meds/Results Medications: Active Medications Generic Name Dose Route Start Last Admin Trade Name Freq PRN Reason Stop Dose Admin Acetaminophen 650 mg 08/31/24 19:35 Acetaminophen 325 Mg Tablet PO Q4H PRN Mild Pain (1-3) or Fever Albuterol 2.5 mg 08/31/24 13:59 Albuterol Sulfate Neb 2.5 Mg/3 Ml Inh INHALATION Q4HRT PRN Shortness Of Breath Or Wheezing Albuterol 1 puff 08/31/24 22:48 Albuterol Sulfate (*Sp) Aerosol 1 Puff INHALATION Q6HRT PRN shortness of breath or wheezing Amoxicillin/Clavulanate Potassium 1 tablet 09/03/24 12:40 09/05/24 08:43 Amoxicillin/Clavulanate K 500-125 Mg Tab PO 1 tablet Q12HR ASHLEY Administration Aspirin 81 mg 09/01/24 09:00 09/05/24 08:43 Aspirin 81 Mg Chewable Tablet PO 81 mg DAILY ASHLEY Administration Atorvastatin Calcium 80 mg 09/01/24 09:00 09/05/24 08:44 Atorvastatin 40 Mg Tablet PO 80 mg DAILY ASHLEY Administration Azithromycin 500 mg 09/03/24 09:00 09/05/24 08:44 Azithromycin 250 Mg Tablet PO 09/06/24 08:59 500 mg DAILY ASHLEY Administration Calcitriol 0.25 mcg 09/01/24 09:00 09/05/24 08:44 Calcitriol 0.25 Mcg Capsule PO 0.25 mcg QAM ASHLEY Administration Calcium Acetate 667 mg 08/31/24 21:00 09/05/24 12:52 Calcium Acetate 667 Mg Tablet PO 667 mg QID ASHLEY Administration Cyclobenzaprine HCl 10 mg 08/31/24 23:58 09/01/24 00:03 Cyclobenzaprine Hcl 10 Mg Tablet PO 10 mg Q8H PRN Administration muscle spasm Cyclosporine 1 drop 08/31/24 22:50 09/05/24 08:44 Cyclosporine 0.4 Ml Ophth Solution EACH EYE 1 drop Q12HR ASHLEY Administration Dextrose 12.5 gm 09/01/24 10:48 Dextrose 50% 25 Gm/50 Ml Syringe IV PUSH PRN PRN Hypoglycemia Protocol Ezetimibe 10 mg 09/01/24 09:00 09/05/24 08:44 Ezetimibe 10 Mg Tablet PO 10 mg DAILY ASHLEY Administration Erythromycin 1 applic 08/31/24 23:05 09/04/24 21:06 Erythromycin Ophth Ointment 1 Gm Tube EACH EYE 1 applic HS ASHLEY Administration Gentamicin Sulfate 1 applic 09/01/24 17:00 09/05/24 08:44 Gentamicin Sulfate 0.1% Oint 15 Gm Tube TOPICAL 1 applic DAILY ASHLEY Administration Glucagon 1 mg 09/01/24 10:48 Glucagon For Inj 1 Mg Vial IM PRN PRN Hypoglycemia Protocol Glucose 15 gm 09/01/24 10:48 Glucose Oral Gel 15 Gm Of Glucse In 37.5 Gm Tube PO PRN PRN Hypoglycemia Protocol Guaifenesin/Dextromethorphan 10 ml 09/04/24 10:00 09/05/24 10:45 Guaifenesin/Dextromethorphan 10 Ml Udc PO 09/06/24 09:59 10 ml Q4H ASHLEY Administration Hydromorphone HCl 0.5 mg 08/31/24 19:39 Hydromorphone Hcl Inj (*Crx) 1 Mg/Ml Syr IV PUSH Q3H PRN Pain Rated 7-10 Dextrose 1,000 mls @ 100 mls/hr 09/01/24 10:48 Dextrose 5% 1,000 Ml IVPB PRN PRN Hypoglycemia Protocol Insulin Aspart 4 - 8 units 09/01/24 12:00 09/05/24 12:48 Insulin Aspart (*Bkc) 100 Units/Ml SUB-Q Not Given [facility] Protocol Insulin Aspart 2 - 4 units 09/01/24 21:00 09/04/24 21:06 Insulin Aspart (*Bkc) 100 Units/Ml SUB-Q Not Given HS ASHLEY Protocol Insulin Aspart 7 units 09/04/24 12:00 09/05/24 12:52 Insulin Aspart (*Bkc) 100 Units/Ml SUB-Q 7 units TIDWM ASH[facility] Administration Insulin Glargine 35 units 09/04/24 08:49 09/05/24 08:50 Insulin Glargine (*Bkc) 100 Units/Ml SUB-Q 35 units Q12HR ASHLEY Administration Levothyroxine Sodium 25 mcg 09/01/24 06:30 09/05/24 06:06 Levothyroxine Sodium 25 Mcg Tablet PO 25 mcg DAILY@0630 ASHLEY Administration Metoprolol Tartrate 25 mg 09/03/24 09:00 09/05/24 08:45 Metoprolol Tartrate 25 Mg Tablet PO 25 mg Q12HR ASHLEY Administration Nitroglycerin 0.4 mg 08/31/24 22:48 Nitroglycerin Sl 0.4 Mg Tablet SUBLINGUAL Q5MIN PRN Chest Pain Oxycodone HCl 5 mg 08/31/24 19:39 09/01/24 22:36 Oxycodone Hcl (*Crx) 5 Mg Tab Ir PO 5 mg Q4H PRN Administration Pain Rated 7-10 Pantoprazole Sodium 40 mg 09/01/24 09:00 09/05/24 08:45 Pantoprazole 40 Mg Tablet PO 40 mg QAM ASHLEY Administration Perflutren Lipid Microsphere 0 ml 09/05/24 10:48 Perflutren Lipid Microspheres 1.5 Ml Vial Diluted To 10 Ml Total Volume IV PUSH 09/08/24 10:48 ONCE PRN adequate visualization Protocol Tamsulosin HCl 0.4 mg 08/31/24 19:45 09/05/24 08:45 Tamsulosin Hcl 0.4 Mg Capsule PO 0.4 mg BID ASHLEY Administration Valacyclovir HCl 500 mg 09/05/24 09:00 09/05/24 08:45 Valacyclovir Hcl 500 Mg Tablet PO 500 mg DAILY ASHLEY Administration Warfarin Sodium 3 mg 08/31/24 17:00 09/04/24 17:20 Warfarin (*Pbkc) 3 Mg Tablet PO 3 mg DAILY@1700 ASHLEY Administration Radiology Results: ITS Impressions Chest X-Ray 08/31/24 13:03 IMPRESSION: Patchy left mid and particularly lower lung infiltrate and/or atelectasis, increased since 08/18/2024 Small left pleural effusion Abdomen Ultrasound 09/01/24 09:21 IMPRESSION: Cholelithiasis Labs Labs: Laboratory Results - last 24 hr 09/04/24 09/04/24 09/05/24 17:24 20:43 05:28 WBC 6.0 RBC 3.77 L Hgb 11.6 L Hct 35.2 L MCV 93.4 MCH 30.8 MCHC 33.0 RDW 15.0 H Plt Count 155 MPV 10.6 H Immature Gran % (Auto) 0.5 Neut % (Auto) 63.1 Lymph % (Auto) 16.4 L [place] % (Auto) 14.0 H Eos % (Auto) 5.5 H Baso % (Auto) 0.5 Lymph # (Auto) 0.99 [place] # (Auto) 0.8 H Eos # (Auto) 0.3 Baso # (Auto) 0.0 Abs Immat Gran (auto) 0.03 Absolute Neuts (auto) 3.8 Absolute Nucleated RBC 0.000 Nucleated RBC % 0.0 PT 18.0 H D INR 1.4 APTT 32.7 Sodium 131 L Potassium 4.0 Chloride 93 L Carbon Dioxide 28 Anion Gap 10 BUN 64 H Creatinine 9.10 H Estim Creat Clear Calc 11 Estimated GFR 6 L Glucose 220 H POC Capillary Glucose 134 H 169 H Calcium 9.0 Magnesium 2.3 Total Bilirubin 0.8 AST 35 ALT 36 Alkaline Phosphatase 86 Total Protein 7.0 Albumin 3.8 09/05/24 09/05/24 08:16 11:44 WBC RBC Hgb Hct MCV MCH MCHC RDW Plt Count MPV Immature Gran % (Auto) Neut % (Auto) Lymph % (Auto) [place] % (Auto) Eos % (Auto) Baso % (Auto) Lymph # (Auto) [place] # (Auto) Eos # (Auto) Baso # (Auto) Abs Immat Gran (auto) Absolute Neuts (auto) Absolute Nucleated RBC Nucleated RBC % PT INR APTT Sodium Potassium Chloride Carbon Dioxide Anion Gap BUN Creatinine Estim Creat Clear Calc Estimated GFR Glucose POC Capillary Glucose 215 H 178 H Calcium Magnesium Total Bilirubin AST ALT Alkaline Phosphatase Total Protein Albumin
[2024-09-05] MEDS: WARFARIN (*PBKC) 3 MG TABLET PO (16:58)
[2024-09-05 17:00] LABS: Glucose Point of Care 111 mg/dl (65-105)
[2024-09-05] MEDS: METOCLOPRAMIDE HCL INJ 10 MG/2 ML VIAL IV PUSH (17:49)
[2024-09-05] MEDS: ERYTHROMYCIN OPHTH OINTMENT 1 GM TUBE 1 APPLIC EACH EYE (22:00)
[2024-09-05 22:27] LABS: Glucose Point of Care 129 mg/dl (65-105)
[2024-09-06] VITALS (7 sets, daily range): BP systolic 115–132; BP diastolic 57–85; PULSE 97–120; RESP 16–18; TEMP 36.6–37; O2SAT 97–98
[2024-09-06 05:51] LABS: INR 1.4; Prothrombin Time 17.6 Seconds (11.1-14.7)
[2024-09-06] MEDS: guaiFENesin/DEXTROMETHORPHAN 10 ML UDC PO (06:15)
[2024-09-06] MEDS: LEVOTHYROXINE SODIUM 25 MCG TABLET PO (06:15)
[2024-09-06 08:11] LABS: Glucose Point of Care 141 mg/dl (65-105)
[2024-09-06] MEDS: INSULIN ASPART (*BKC) 100 UNITS/ML 7 UNITS SUB-Q ×2 (08:45→12:28)
[2024-09-06] MEDS: calcitrioL 0.25 MCG CAPSULE PO (08:51)
[2024-09-06] MEDS: ASPIRIN 81 MG CHEWABLE TABLET PO (08:51)
[2024-09-06] MEDS: AMOXICILLIN/CLAVULANATE K 500-125 MG TAB 1 TABLET PO ×2 (08:51→20:50)
[2024-09-06] MEDS: CALCIUM ACETATE 667 MG TABLET PO ×4 (08:51→20:50)
[2024-09-06] MEDS: ATORVASTATIN 40 MG TABLET 80 MG PO (08:51)
[2024-09-06] MEDS: valACYclovir HCL 500 MG TABLET PO (08:52)
[2024-09-06] MEDS: PANTOPRAZOLE 40 MG TABLET PO (08:52)
[2024-09-06] MEDS: EZETIMIBE 10 MG TABLET PO (08:52)
[2024-09-06] MEDS: TAMSULOSIN HCL 0.4 MG CAPSULE PO ×2 (08:52→17:12)
[2024-09-06] MEDS: cycloSPORINE 0.4 ML OPHTH SOLUTION 1 DROP EACH EYE ×2 (08:53→20:52)
[2024-09-06] MEDS: METOPROLOL TARTRATE 25 MG TABLET PO ×2 (08:55→20:50)
[2024-09-06] MEDS: INSULIN GLARGINE (*BKC) 100 UNITS/ML 35 UNITS SUB-Q ×2 (08:59→21:43)
[2024-09-06] MEDS: PERFLUTREN LIPID MICROSPHERES 1.5 ML VIAL DILUTED TO 10 ML TOTAL VOLUME IV PUSH (09:55)
--- NOTE | 2024-09-06 10:30 | PM.IMPN ---
Progress Note: A&P Assessment and Plan (1) Type 1 diabetes mellitus: Qualifiers: Diabetes mellitus complication detail: without coma Diabetes mellitus complication status: with ketoacidosis Qualified Code(s): E10.10 - Type 1 diabetes mellitus with ketoacidosis without coma Code(s): E10.9 - Type 1 diabetes mellitus without complications Status: Acute (2) DKA (diabetic ketoacidosis): Qualifiers: Diabetes mellitus complication detail: without coma Diabetes mellitus type: type 1 Qualified Code(s): E10.10 - Type 1 diabetes mellitus with ketoacidosis without coma Code(s): E11.10 - Type 2 diabetes mellitus with ketoacidosis without coma Status: Acute (3) Cholelithiasis: Qualifiers: Biliary obstruction: without biliary obstruction Cholecystitis presence: without cholecystitis Cholelithiasis location: gallbladder Qualified Code(s): K80.20 - Calculus of gallbladder without cholecystitis without obstruction Code(s): K80.20 - Calculus of gallbladder without cholecystitis without obstruction Status: Acute (4) End stage renal disease on dialysis: Code(s): N18.6 - End stage renal disease; Z99.2 - Dependence on renal dialysis Status: Acute (5) Essential hypertension: Code(s): I10 - Essential (primary) hypertension Status: Chronic (6) Paroxysmal atrial fibrillation: Code(s): I48.0 - Paroxysmal atrial fibrillation Status: Acute (7) Sepsis: Code(s): A41.9 - Sepsis, unspecified organism Status: Acute (8) Pancytopenia: Code(s): D61.818 - Other pancytopenia Status: Acute (9) Acute hypoxemic respiratory failure: Code(s): J96.01 - Acute respiratory failure with hypoxia Status: Acute (10) ESRD on peritoneal dialysis: Code(s): N18.6 - End stage renal disease; Z99.2 - Dependence on renal dialysis Status: Acute (11) Patient on peritoneal dialysis: Code(s): Z99.2 - Dependence on renal dialysis Status: Acute (12) End stage renal disease: Code(s): N18.6 - End stage renal disease Status: Chronic (13) Hyperglycemia due to diabetes mellitus: Code(s): E11.65 - Type 2 diabetes mellitus with hyperglycemia Status: Acute (14) Type 1 diabetes mellitus with hyperglycemia: Code(s): E10.65 - Type 1 diabetes mellitus with hyperglycemia Status: Chronic Plan Diabetic ketoacidosis: Code(s): E11.10 - Type 2 diabetes mellitus with ketoacidosis without coma Status: Acute Assessment and Plan: Pt will be given 1 L IVF bolus On admission further fluids were held due to patient's end-stage renal disease Insulin infusion was started and Q1H glucose monitoring was done Serial labs were done His anion gap closed and and patient has been transition to subcutaneous insulin he is tolerating p.o. diet Consult dietitian and development educator increase Lantus today continue Accu-Cheks and sliding scale insulin ESRD on peritoneal dialysis: Code(s): N18.6 - End stage renal disease; Z99.2 - Dependence on renal dialysis Status: Acute Assessment and Plan: Patient is getting PD every night. Nephrology following Sepsis: Code(s): A41.9 - Sepsis, unspecified organism Status: Acute Assessment and Plan: Patient met criteria for sepsis. Chest x-ray shows left lower lobe infiltrate suggestive of pneumonia. Patient also has right upper quadrant tenderness and has history of cholelithiasis Due to his as treatment disease be given conservative amount of IV fluids and 1 L fluid bolus was get Blood cultures, UA and micro are negative procalcitonin level was 1.6 CT chest abdomen pelvis could not be done as patient was unable to lay flat right upper quadrant ultrasound showed cholelithiasis but no evidence of cholecystitis, patient seen by surgery, no intervention at this time Although patient's abdominal pain is local and right upper quadrant and affluent was yellow and clear, novelty twister tender sent peritoneal fluid for cytology and was negative and preliminary cultures are negative - discontinue vancomycin. - Switch Zosyn to p.o. Augmentin. Switch azithromycin to p.o. Status post Jonn-Synephrine for greater than 48 hours Pneumonia: Qualifiers: Pneumonia type: due to unspecified organism Laterality: left Lung location: lower lobe of lung Qualified Code(s): J18.9 - Pneumonia, unspecified organism Code(s): J18.9 - Pneumonia, unspecified organism Status: Acute Assessment and Plan: See above Cholelithiasis: Qualifiers: Cholelithiasis location: gallbladder Cholecystitis presence: without cholecystitis Biliary obstruction: without biliary obstruction Qualified Code(s): K80.20 - Calculus of gallbladder without cholecystitis without obstruction Code(s): K80.20 - Calculus of gallbladder without cholecystitis without obstruction Status: Acute Assessment and Plan: Tenderness in right upper quadrant. right upper quadrant ultrasound showed cholelithiasis with no evidence of cholecystitis. Patient was seen by General surgery and recommend low-fat diet at this time. No plan for surgical intervention at the moment General surgeon does not recommend surgical intervention except for true emergent basis. If he were to require surgery, he would be better suited at a tertiary care facility due to his very low cardiac ejection fraction and other medical issues. Abdominal pain: Code(s): R10.9 - Unspecified abdominal pain Status: Resolved Assessment and Plan: See above Hypertension: Code(s): I10 - Essential (primary) hypertension Status: Chronic Assessment and Plan: Blood pressure borderline Hold amlodipine and beta-umair upon arrival Blood pressure bumped up, resume beta-umair 25 mg b.i.d. p.o. Paroxysmal atrial fibrillation: Code(s): I48.0 - Paroxysmal atrial fibrillation Status: Acute Assessment and Plan: resume beta-umair anticoagulated with warfarin -INR 1.4 Increase warfarin 5mg from 3 mg 09/06 Severe systolic heart failure Echocardiogram September 2023 Left ventricular systolic function is severely reduced, estimated at 20-25%. Patient does not know he has severe chronic systolic heart failure Patient does not have AICD Repeat echocardiogram, pending report Consult cardiology for evaluation treatment Appreciate cardiology consultation Plan DVT prophylaxis -resume warfarin Stress ulcer prophylaxis -continue home PPI Nutrition - diet order Code Status - Full Code PT OT incentive spirometry up in chair Subjective Date/time seen: 09/06/24 10:30 Interval history: I saw exam patient today. Patient feels better today, dyspnea is improving. Patient does not have abdomen pain today. Patient underwent peritoneal dialysis yesterday Afebrile, blood pressure stable, labs reviewed, Exam Narrative: GENERAL: Pleasant, in no acute distress. Well-nourished. - EYES: EOMI. Anicteric. - HENT: Moist mucous membranes. - LUNGS: Coarse breath sound bilateral base no wheezing, rhonchi, or rales. - CARDIOVASCULAR: Regular rate and rhythm. No murmur. No JVD. - ABDOMEN: Soft, non-tender and non-distended. No palpable masses. - EXTREMITIES: No edema. Peripheral pulses 2+. Non-tender. - NEUROLOGIC: No focal neurological deficits. CN II-XII grossly intact. General weakness - PSYCHIATRIC: Awake, Alert and oriented x 3. Appropriate mood and affect. - SKIN: No rashes or lesions. Warm. - LYMPH: No cervical lymphadenopathy. Objective Data Vital Signs Vital Signs: Vital Signs - 24 hr 09/05/24 15:16 09/05/24 20:00 09/05/24 21:42 Temperature 97.0 F L 97.7 F Pulse Rate 108 H 100 Respiratory Rate 18 16 Blood Pressure 128/74 126/84 Pulse Oximetry 98 98 Oxygen Delivery Room Air 09/05/24 21:51 09/06/24 06:18 09/06/24 07:58 Temperature 98.6 F 98.5 F Pulse Rate 108 H 116 H 120 H Respiratory Rate 16 16 Blood Pressure 130/77 132/79 Pulse Oximetry 98 Oxygen Delivery 09/06/24 08:45 09/06/24 08:55 Temperature Pulse Rate 120 H Respiratory Rate Blood Pressure Pulse Oximetry 97 Oxygen Delivery Room Air Intake/Output Intake/Output: Intake & Output 09/03/24 09/04/24 09/05/24 09/06/24 23:59 23:59 23:59 23:59 Intake Total 7997 160 0441 540 Output Total 1302 1766 1027 1814 Balance -102 1166 1043 -1994 Meds/Results Medications: Active Medications Generic Name Dose Route Start Last Admin Trade Name Freq PRN Reason Stop Dose Admin Acetaminophen 650 mg 08/31/24 19:35 Acetaminophen 325 Mg Tablet PO Q4H PRN Mild Pain (1-3) or Fever Albuterol 2.5 mg 08/31/24 13:59 Albuterol Sulfate Neb 2.5 Mg/3 Ml Inh INHALATION Q4HRT PRN Shortness Of Breath Or Wheezing Albuterol 1 puff 08/31/24 22:48 Albuterol Sulfate (*Sp) Aerosol 1 Puff INHALATION Q6HRT PRN shortness of breath or wheezing Amoxicillin/Clavulanate Potassium 1 tablet 09/03/24 12:40 09/06/24 08:51 Amoxicillin/Clavulanate K 500-125 Mg Tab PO 1 tablet Q12HR ASHLEY Administration Aspirin 81 mg 09/01/24 09:00 09/06/24 08:51 Aspirin 81 Mg Chewable Tablet PO 81 mg DAILY ASHLEY Administration Atorvastatin Calcium 80 mg 09/01/24 09:00 09/06/24 08:51 Atorvastatin 40 Mg Tablet PO 80 mg DAILY ASHLEY Administration Benzocaine 1 lozenge 09/06/24 06:29 Benzocaine/Menthol (*Bkc) 18 Ea Lozenge PO PRN PRN Sore Throat Calcitriol 0.25 mcg 09/01/24 09:00 09/06/24 08:51 Calcitriol 0.25 Mcg Capsule PO 0.25 mcg QAM ASHLEY Administration Calcium Acetate 667 mg 08/31/24 21:00 09/06/24 08:51 Calcium Acetate 667 Mg Tablet PO 667 mg QID ASHLEY Administration Cyclobenzaprine HCl 10 mg 08/31/24 23:58 09/01/24 00:03 Cyclobenzaprine Hcl 10 Mg Tablet PO 10 mg Q8H PRN Administration muscle spasm Cyclosporine 1 drop 08/31/24 22:50 09/06/24 08:53 Cyclosporine 0.4 Ml Ophth Solution EACH EYE 1 drop Q12HR ASHLEY Administration Dextrose 12.5 gm 09/01/24 10:48 Dextrose 50% 25 Gm/50 Ml Syringe IV PUSH PRN PRN Hypoglycemia Protocol Ezetimibe 10 mg 09/01/24 09:00 09/06/24 08:52 Ezetimibe 10 Mg Tablet PO 10 mg DAILY ASHLEY Administration Erythromycin 1 applic 08/31/24 23:05 09/05/24 22:00 Erythromycin Ophth Ointment 1 Gm Tube EACH EYE 1 applic HS ASHLEY Administration Gentamicin Sulfate 1 applic 09/01/24 17:00 09/05/24 20:07 Gentamicin Sulfate 0.1% Oint 15 Gm Tube TOPICAL 1 applic DAILY ASHLEY Administration Glucagon 1 mg 09/01/24 10:48 Glucagon For Inj 1 Mg Vial IM PRN PRN Hypoglycemia Protocol Glucose 15 gm 09/01/24 10:48 Glucose Oral Gel 15 Gm Of Glucse In 37.5 Gm Tube PO PRN PRN Hypoglycemia Protocol Hydromorphone HCl 0.5 mg 08/31/24 19:39 Hydromorphone Hcl Inj (*Crx) 1 Mg/Ml Syr IV PUSH Q3H PRN Pain Rated 7-10 Dextrose 1,000 mls @ 100 mls/hr 09/01/24 10:48 Dextrose 5% 1,000 Ml IVPB PRN PRN Hypoglycemia Protocol Insulin Aspart 4 - 8 units 09/01/24 12:00 09/06/24 08:43 Insulin Aspart (*Bkc) 100 Units/Ml SUB-Q Not Given TIDWM [facility] Protocol Insulin Aspart 2 - 4 units 09/01/24 21:00 09/05/24 21:52 Insulin Aspart (*Bkc) 100 Units/Ml SUB-Q Not Given HS ASHLEY Protocol Insulin Aspart 7 units 09/04/24 12:00 09/06/24 08:45 Insulin Aspart (*Bkc) 100 Units/Ml SUB-Q 7 units TIDWM ASHLEY Administration Insulin Glargine 35 units 09/04/24 08:49 09/06/24 08:59 Insulin Glargine (*Bkc) 100 Units/Ml SUB-Q 35 units Q12HR ASHLEY Administration Levothyroxine Sodium 25 mcg 09/01/24 06:30 09/06/24 06:15 Levothyroxine Sodium 25 Mcg Tablet PO 25 mcg DAILY@0630 ASHLEY Administration Metoclopramide HCl 10 mg 09/05/24 17:31 09/05/24 17:49 Metoclopramide Hcl Inj 10 Mg/2 Ml Vial IV PUSH 10 mg Q6HR PRN Administration nausea Metoprolol Tartrate 25 mg 09/03/24 09:00 09/06/24 08:55 Metoprolol Tartrate 25 Mg Tablet PO 25 mg Q12HR ASHLEY Administration Nitroglycerin 0.4 mg 08/31/24 22:48 Nitroglycerin Sl 0.4 Mg Tablet SUBLINGUAL Q5MIN PRN Chest Pain Oxycodone HCl 5 mg 08/31/24 19:39 09/01/24 22:36 Oxycodone Hcl (*Crx) 5 Mg Tab Ir PO 5 mg Q4H PRN Administration Pain Rated 7-10 Pantoprazole Sodium 40 mg 09/01/24 09:00 09/06/24 08:52 Pantoprazole 40 Mg Tablet PO 40 mg QAM ASHLEY Administration Perflutren Lipid Microsphere 0 ml 09/05/24 10:48 Perflutren Lipid Microspheres 1.5 Ml Vial Diluted To 10 Ml Total Volume IV PUSH 09/08/24 10:48 ONCE PRN adequate visualization Protocol Tamsulosin HCl 0.4 mg 08/31/24 19:45 09/06/24 08:52 Tamsulosin Hcl 0.4 Mg Capsule PO 0.4 mg BID ASHLEY Administration Valacyclovir HCl 500 mg 09/05/24 09:00 09/06/24 08:52 Valacyclovir Hcl 500 Mg Tablet PO 500 mg DAILY [facility] Administration Warfarin Sodium 3 mg 08/31/24 17:00 09/05/24 16:58 Warfarin (*Pbkc) 3 Mg Tablet PO 3 mg DAILY@1700 [facility] Administration Radiology Results: ITS Impressions Chest X-Ray 08/31/24 13:03 IMPRESSION: Patchy left mid and particularly lower lung infiltrate and/or atelectasis, increased since 08/18/2024 Small left pleural effusion Abdomen Ultrasound 09/01/24 09:21 IMPRESSION: Cholelithiasis Labs Labs: Laboratory Results - last 24 hr 09/05/24 09/05/24 09/05/24 11:44 16:54 21:43 PT INR POC Capillary Glucose 178 H 111 H 129 H 09/06/24 09/06/24 05:17 08:05 PT 17.6 H INR 1.4 POC Capillary Glucose 141 H
[2024-09-06 10:45] LABS: Basophils Percent Auto 0.5 % (0.2-1.2); Eosinophils Absolute Auto 0.3 K/mm3 (0-0.3); Eosinophils Percent Auto 4.6 % (0-4.4); Hematocrit 34.4 % (42.0-52.0); Hemoglobin 11.5 g/dL (14.0-18.0); Immature Granulocyte Absolute 0.02 K/mm3 (0.00-0.031); Immature Granulocyte Percent A 0.3 % (0-0.5); Lymphocytes Absolute Auto 1.02 K/mm3 (0.9-3.2); Lymphocytes Percent Auto 16.1 % (18.3-44.2); Mean Corpuscular HGB Conc 33.4 g/dl (32-36); Mean Corpuscular Hemoglobin 31.3 pg (26-34); Mean Corpuscular Volume 93.7 fl (80-100); Mean Platelet Volume 9.9 fl (7.4-10.4); Neutrophils Percent Auto 63.5 % (45.5-73.1); Platelet Count Result 163 k/mm3 (150-375); Red Blood Count 3.67 M/mm3 (4.6-6.20); Red Cell Distribution Width 15.5 % (11.5-14.5); White Blood Count 6.4 K/mm3 (4.5-10.0)
--- NOTE | 2024-09-06 10:48 | ECHO_ITS ---
Patient Info Name: Juvenal Daigle Age: 54 years : 1970 Gender: Male Ht: 70 in Wt: 264 lbs BSA: 2.48 m2 HR: 116 bpm BP: 130 / 77 mmHg Technical Quality: Poor Exam Date: 09/06/2024 9:06 AM Exam Location: Echo Lab Patient Status: Inpatient Admit Date: 08/31/2024 Staff Ordering Physician: Karen Horowitz MD S[place]: Yaneth Farmer RDCS Attending Provider: Santosh Lockwood MD Exam Type: CA echo dop color flow w con Study Info Indications - CHF Complete two-dimensional, color flow and Doppler transthoracic echocardiogram is performed with contrast to opacify the left ventricle and to improve the deliniation of the left ventricle endocardial borders. Contrast/Agitated Saline Contrast/Ag. Saline: Definity Amount: 2.00 ml Existing IV Access: Yes Reason for Poor Study: poor echocardiographic windows Summary 1. Left ventricular chamber dimension is mildly enlarged. 2. There is mildly increased left ventricular wall thickness. 3. Left ventricular systolic function is severely reduced with an ejection fraction by Biplane Method of Discs of 25 %. 4. Right ventricular chamber dimension is normal. 5. Right ventricular systolic function is reduced. 6. Left atrial chamber dimension is mildly enlarged. 7. Right atrial chamber dimension is mildly enlarged. 8. There is no regurgitation of the mechanical aortic valve. Mean gradient of 6mmHg. Valve is well seated and appears to be functioning appropriately. 9. There is mild mitral valve regurgitation. 10. There is mild tricuspid valve regurgitation. 11. Pulmonary hypertension, estimated pulmonary arterial systolic pressure is 51 mmHg. Left Ventricle Left ventricular chamber dimension is mildly enlarged. There is mildly increased left ventricular wall thickness. Left ventricular septal wall motion is abnormal with septal motion related to a post-operative state. The left ventricular diastolic function is indeterminate. Left ventricular systolic function is severely reduced with an ejection fraction by Biplane Method of Discs of 25 %. Right Ventricle Right ventricular chamber dimension is normal. Right ventricular systolic function is reduced. Left Atria Left atrial chamber dimension is mildly enlarged. Right Atria Right atrial chamber dimension is mildly enlarged. Atrial Septum Intact interatrial septum visualized by color flow imaging. Aortic Valve There is no regurgitation of the mechanical aortic valve. Mean gradient of 6mmHg. Valve is well seated and appears to be functioning appropriately. Pulmonic Valve The pulmonic valve is not well visualized. There is no pulmonic regurgitation. Mitral Valve There is mild mitral valve regurgitation. Tricuspid Valve There is mild tricuspid valve regurgitation. Pulmonary hypertension, estimated pulmonary arterial systolic pressure is 51 mmHg. Pericardium/Pleural There is no pericardial effusion. Inferior Vena Cava Dilated inferior vena cava with <50% collapse upon inspiration consistent with elevated right atrial pressure, 15 mmHg. Aorta The aortic root size at the sinus of Valsalva is normal. Left Ventricular Outflow Tract Name Value Normal LVOT 2D LVOT Diameter 2.19 cm LVOT Doppler LVOT Peak Gradient 6 mmHg LVOT Mean Gradient 4 mmHg LVOT VTI 19.51 cm LVOT VTI/AV VTI Ratio 0.69 LVOT Stroke Volume 73.19 ml LVOT CO 8.55 l/min LVOT CI 3.45 L/min/m2 Pulmonic Valve Name Value Normal RVOT Doppler RVOT Peak Gradient 3 mmHg PV Doppler PV Peak Gradient 4 mmHg Mitral Valve Name Value Normal MV Doppler MV Peak Gradient 8 mmHg MV Mean Gradient 2 mmHg MV Decel Noble 873.94 cm/s2 MV PHT 0 s MV Area (PHT) 5.42 cm2 4.00-5.00 MV Area (Cont Eq VTI) 2.36 cm2 MV Diastolic Function MV E Peak Velocity 122.34 cm/s MV Decel Time 0 s MV Annular TDI MV E/e' (Septal) 36.06 <=8.00 MV E/e' (Lateral) 17.77 <=8.00 MV E/e' (Average) 26.91 Tricuspid Valve Name Value Normal TV Regurgitation Doppler TR Peak Velocity 299.74 cm/s TR Peak Gradient 25 mmHg Estimated PAP/RSVP RA Pressure 15 mmHg <=5 PA Systolic Pressure 51 mmHg <36 RV Systolic Pressure 51 mmHg <36 Aortic Valve Name Value Normal AV Doppler AV Peak Velocity 199.77 cm/s AV Peak Gradient 9 mmHg AV Mean Gradient 6 mmHg AV VTI 28.46 cm AV Area (Cont Eq VTI) 2.57 cm2 >=3.00 AV Area (Cont Eq Robe) 4.09 cm2 AV Regurgitation 2D LVOT Area 3.75 cm2 Ventricles Name Value Normal LV Dimensions 2D/MM IVS Diastolic Thickness (2D) 1.01 cm 0.60-1.00 LVID Diastole (2D) 5.71 cm 4.20-5.80 LVIW Diastolic Thickness (2D) 1.90 cm 0.60-1.00 LVID Systole (2D) 5.01 cm 2.50-4.00 LVOT Diameter 2.19 cm LV Mass (2D Cubed) 378.42 g 88.00-224.00 LV Mass Index (2D Cubed) 0.02 g/cm2 0.00-0.01 Relative Wall Thickness (2D) 0.67 LV Fractional Shortening/Ejection Fraction 2D/MM LV Fractional Shortening (2D) 16 % 25-43 LV EF (2D Teicholz) 33 % 52-72 LV Diastolic Volume (4C MOD) 129.98 ml LV EF (4C MOD) 32 % LV Diastolic Volume (2C MOD) 118.32 ml LV EF (2C MOD) 16 % LV Diastolic Volume (BP MOD) 126.06 ml 62.00-150.00 LV Diastolic Volume Index (BP MOD) 0.05 l/m2 0.03-0.07 LV Systolic Volume (BP MOD) 93.92 ml 21.00-61.00 LV Systolic Volume Index (BP MOD) 0.04 l/m2 0.01-0.03 LV EF (BP MOD) 25 % 52-72 LV Diastolic Length (4C) 7.74 cm LV Systolic Length (4C) 7.23 cm LV Stroke Volume (4C MOD) 41.58 ml Atria Name Value Normal LA Dimensions LA Volume (4C A-L) 64.97 ml LA Volume (BP A-L) 88.60 ml RA Dimensions RA Area (4C) 23.97 cm2 <=18.00 Report Signatures
[2024-09-06 10:56] LABS: Anion Gap 7 mmol/L (4-12); Blood Urea Nitrogen 62 mg/dL (9-20); Calcium 8.8 mg/dL (8.4-10.2); Carbon Dioxide 31 mmol/L (22-30); Chloride 95 mmol/L (98-107); Estimated CRCL calculation 12 ml/min; Estimated Glomerular Filt Rate 6; Glucose 115 mg/dL (65-110); Potassium 3.3 mmol/L (3.4-5.0); Sodium 133 mmol/L (137-145)
[2024-09-06 10:59] LABS: INR 1.4; Prothrombin Time 17.9 Seconds (11.1-14.7)
--- NOTE | 2024-09-06 11:06 | PCNWS ---
Weekly nutritional screen. Patient is tolerating current diet with adequate intake. No weight loss reported. No nutritional needs at this time.
--- NOTE | 2024-09-06 11:10 | IVDEFINITY ---
Prior to administration of IV Definity the patient was educated on the risks and benefits of the imaging enhancing agent including potential adverse side effects. The patient verbalized understanding. Allergies were verified. No exclusion criteria were identified and at least one of the following inclusion criteria were met: 1) physician request, 2) patient technically difficult to image (per the [place] [employer] guidelines of two or more segments not discernable within the apical view), or 3) questionable left ventricular function. ?
[2024-09-06] MEDS: ACETAMINOPHEN 325 MG TABLET 650 MG PO (12:09)
[2024-09-06 12:33] LABS: Glucose Point of Care 137 mg/dl (65-105)
--- NOTE | 2024-09-06 17:09 | P.PNNP_ITS ---
Progress Note: A&P Assessment and Plan (1) End-stage renal disease (ESRD): Code(s): N18.6 - End stage renal disease Status: Acute Assessment and Plan: * ESRD: Peritoneal dialysis. His peritoneal dialysate effluent is clear, however will make sure he does not have infection in light of the pain in the right upper quadrant. Peritoneal dialysis was supervised. He does have gallstones and this may well be responsible too. * Type 1 diabetes mellitus with hyperglycemia, DKA presentation: Insulin, discussed with patient going needs to get on regular insulin in stable from the pump * Hyponatremia in the presence of ESRD: Fluid removed * Possible pneumonia with chest x-ray showing infiltrate: Ceftriaxone and azithromycin * History of sleep apnea on CPAP, maintain CPAP * Anemia of chronic kidney disease: On long acting erythrocyte stimulating agent as needed, usually his hemoglobin sticks around 12 grams/deciliter * Secondary hyperparathyroidism: On calcitriol therapy * History of coronary artery disease. * Diabetes mellitus: Control per ICU team Peritoneal dialysis: -prescriptions altered to his regular schedule -Icodextrin not available in the hospital in the [place] use Dianeal 2.5% -Peritoneal dialysis supervised -look at cultures 09/02: --ESRD: UF is 433 mls,is NOT infected intra peritoneally --maintain same, is not able to use icodextrin in hospital --needs to change to BID insulin to prevent these events --PD orders maintained 09/03: --doing better with ultrafiltration and fluid situation better maintain same dialysis orders --maintain sugar control with insulin --hyponatremia secondary to fluid retention as well as high blood sugars --peritoneal dialysis orders to maintain and supervised dialysis 09/04/2024: --maintain same Dianeal concentration --Fluid state slowly better --sugars up and down --Supervise PD 09/05: --awaiting echo --fluid retention is stable --maintain PD, same Dianeal 2.5% --supervise PD 09/06 --echocardiogram shows ejection fraction of only 25% --further cardiology workup is deferred to his primary wheel adjuster in [place] --maintain dialysis as per orders --fluid removal as tolerated Subjective Date/time seen: 09/06/24 17:09 Interval history: Seen earlier this afternoon at 1.30PM or son Sitting up in a chair Still with swelling, SOB is better PERITONEAL DIALYSIS UF 1027MLS PD orders, same, to continue PD supervised D/w dialysis staff Exam Narrative: VSS noted WD WN, up in chair, looks swollen up, JVD is hard to see, irregular rhythm rate, tachycardia, no respiratory distress, soft, non tender abdomen, PD catheter in place, edematous legs and feet, alert, oriented x 3 no tremors, cognition intact, edema has not chnaged in lower extremities Objective Data Vital Signs Vital Signs: Vital Signs - 24 hr 09/05/24 20:00 09/05/24 21:42 09/05/24 21:51 Temperature 36.5 C Pulse Rate 100 108 H Respiratory Rate 16 Blood Pressure 126/84 Pulse Oximetry 98 Oxygen Delivery Room Air 09/06/24 06:18 09/06/24 07:58 09/06/24 08:45 Temperature 37.0 C 36.9 C Pulse Rate 116 H 120 H Respiratory Rate 16 16 Blood Pressure 130/77 132/79 Pulse Oximetry 98 97 Oxygen Delivery Room Air 09/06/24 08:55 09/06/24 13:51 Temperature 36.7 C Pulse Rate 120 H 97 Respiratory Rate 18 Blood Pressure 115/57 L Pulse Oximetry 98 Oxygen Delivery Intake/Output Intake/Output: Intake & Output 09/03/24 09/04/24 09/05/24 09/06/24 23:59 23:59 23:59 23:59 Intake Total 9522 571 8358 780 Output Total 1302 1766 1027 1814 Balance -102 -1166 1043 -1034 Meds/Results Medications: Active Medications Generic Name Dose Route Start Last Admin Trade Name Freq PRN Reason Stop Dose Admin Acetaminophen 650 mg 08/31/24 19:35 09/06/24 12:09 Acetaminophen 325 Mg Tablet PO 650 mg Q4H PRN Administration Mild Pain (1-3) or Fever Albuterol 2.5 mg 08/31/24 13:59 Albuterol Sulfate Neb 2.5 Mg/3 Ml Inh INHALATION Q4HRT PRN Shortness Of Breath Or Wheezing Albuterol 1 puff 08/31/24 22:48 Albuterol Sulfate (*Sp) Aerosol 1 Puff INHALATION Q6HRT PRN shortness of breath or wheezing Amoxicillin/Clavulanate Potassium 1 tablet 09/03/24 12:40 09/06/24 08:51 Amoxicillin/Clavulanate K 500-125 Mg Tab PO 1 tablet Q12HR ASHLEY Administration Aspirin 81 mg 09/01/24 09:00 09/06/24 08:51 Aspirin 81 Mg Chewable Tablet PO 81 mg DAILY ASHLEY Administration Atorvastatin Calcium 80 mg 09/01/24 09:00 09/06/24 08:51 Atorvastatin 40 Mg Tablet PO 80 mg DAILY ASHLEY Administration Benzocaine 1 lozenge 09/06/24 06:29 Benzocaine/Menthol (*Bkc) 18 Ea Lozenge PO PRN PRN Sore Throat Calcitriol 0.25 mcg 09/01/24 09:00 09/06/24 08:51 Calcitriol 0.25 Mcg Capsule PO 0.25 mcg QAM ASHLEY Administration Calcium Acetate 667 mg 08/31/24 21:00 09/06/24 12:10 Calcium Acetate 667 Mg Tablet PO 667 mg QID ASHLEY Administration Cyclobenzaprine HCl 10 mg 08/31/24 23:58 09/01/24 00:03 Cyclobenzaprine Hcl 10 Mg Tablet PO 10 mg Q8H PRN Administration muscle spasm Cyclosporine 1 drop 08/31/24 22:50 09/06/24 08:53 Cyclosporine 0.4 Ml Ophth Solution EACH EYE 1 drop Q12HR ASHLEY Administration Dextrose 12.5 gm 09/01/24 10:48 Dextrose 50% 25 Gm/50 Ml Syringe IV PUSH PRN PRN Hypoglycemia Protocol Ezetimibe 10 mg 09/01/24 09:00 09/06/24 08:52 Ezetimibe 10 Mg Tablet PO 10 mg DAILY ASHLEY Administration Erythromycin 1 applic 08/31/24 23:05 09/05/24 22:00 Erythromycin Ophth Ointment 1 Gm Tube EACH EYE 1 applic HS ASHLEY Administration Gentamicin Sulfate 1 applic 09/01/24 17:00 09/05/24 20:07 Gentamicin Sulfate 0.1% Oint 15 Gm Tube TOPICAL 1 applic DAILY ASHLEY Administration Glucagon 1 mg 09/01/24 10:48 Glucagon For Inj 1 Mg Vial IM PRN PRN Hypoglycemia Protocol Glucose 15 gm 09/01/24 10:48 Glucose Oral Gel 15 Gm Of Glucse In 37.5 Gm Tube PO PRN PRN Hypoglycemia Protocol Hydromorphone HCl 0.5 mg 08/31/24 19:39 Hydromorphone Hcl Inj (*Crx) 1 Mg/Ml Syr IV PUSH Q3H PRN Pain Rated 7-10 Dextrose 1,000 mls @ 100 mls/hr 09/01/24 10:48 Dextrose 5% 1,000 Ml IVPB PRN PRN Hypoglycemia Protocol Insulin Aspart 4 - 8 units 09/01/24 12:00 09/06/24 12:25 Insulin Aspart (*Bkc) 100 Units/Ml SUB-Q Not Given TIDWM [facility] Protocol Insulin Aspart 2 - 4 units 09/01/24 21:00 09/05/24 21:52 Insulin Aspart (*Bkc) 100 Units/Ml SUB-Q Not Given HS [facility] Protocol Insulin Aspart 7 units 09/04/24 12:00 09/06/24 12:28 Insulin Aspart (*Bkc) 100 Units/Ml SUB-Q 7 units TIDWM ASHLEY Administration Insulin Glargine 35 units 09/04/24 08:49 09/06/24 08:59 Insulin Glargine (*Bkc) 100 Units/Ml SUB-Q 35 units Q12HR ASHLEY Administration Levothyroxine Sodium 25 mcg 09/01/24 06:30 09/06/24 06:15 Levothyroxine Sodium 25 Mcg Tablet PO 25 mcg DAILY@0630 ASHLEY Administration Metoclopramide HCl 10 mg 09/05/24 17:31 09/05/24 17:49 Metoclopramide Hcl Inj 10 Mg/2 Ml Vial IV PUSH 10 mg Q6HR PRN Administration nausea Metoprolol Tartrate 25 mg 09/03/24 09:00 09/06/24 08:55 Metoprolol Tartrate 25 Mg Tablet PO 25 mg Q12HR ASHLEY Administration Nitroglycerin 0.4 mg 08/31/24 22:48 Nitroglycerin Sl 0.4 Mg Tablet SUBLINGUAL Q5MIN PRN Chest Pain Oxycodone HCl 5 mg 08/31/24 19:39 09/01/24 22:36 Oxycodone Hcl (*Crx) 5 Mg Tab Ir PO 5 mg Q4H PRN Administration Pain Rated 7-10 Pantoprazole Sodium 40 mg 09/01/24 09:00 09/06/24 08:52 Pantoprazole 40 Mg Tablet PO 40 mg QAM ASHLEY Administration Tamsulosin HCl 0.4 mg 08/31/24 19:45 09/06/24 08:52 Tamsulosin Hcl 0.4 Mg Capsule PO 0.4 mg BID ASHLEY Administration Valacyclovir HCl 500 mg 09/05/24 09:00 09/06/24 08:52 Valacyclovir Hcl 500 Mg Tablet PO 500 mg DAILY [facility] Administration Warfarin Sodium 5 mg 09/06/24 17:00 Warfarin (*Pbkc) 5 Mg Tablet PO DAILY@1700 [facility] Radiology Results: ITS Impressions Chest X-Ray 08/31/24 13:03 IMPRESSION: Patchy left mid and particularly lower lung infiltrate and/or atelectasis, increased since 08/18/2024 Small left pleural effusion Abdomen Ultrasound 09/01/24 09:21 IMPRESSION: Cholelithiasis Labs Labs: Laboratory Results - last 24 hr 09/05/24 09/06/24 09/06/24 21:43 05:17 08:05 WBC RBC Hgb Hct MCV MCH MCHC RDW Plt Count MPV Immature Gran % (Auto) Neut % (Auto) Lymph % (Auto) [place] % (Auto) Eos % (Auto) Baso % (Auto) Lymph # (Auto) [place] # (Auto) Eos # (Auto) Baso # (Auto) Abs Immat Gran (auto) Absolute Neuts (auto) Absolute Nucleated RBC Nucleated RBC % PT 17.6 H INR 1.4 Sodium Potassium Chloride Carbon Dioxide Anion Gap BUN Creatinine Estim Creat Clear Calc Estimated GFR Glucose POC Capillary Glucose 129 H 141 H Calcium 09/06/24 09/06/24 10:39 11:53 WBC 6.4 RBC 3.67 L Hgb 11.5 L Hct 34.4 L MCV 93.7 MCH 31.3 MCHC 33.4 RDW 15.5 H Plt Count 163 MPV 9.9 Immature Gran % (Auto) 0.3 Neut % (Auto) 63.5 Lymph % (Auto) 16.1 L [place] % (Auto) 15.0 H Eos % (Auto) 4.6 H Baso % (Auto) 0.5 Lymph # (Auto) 1.02 [place] # (Auto) 1.0 H Eos # (Auto) 0.3 Baso # (Auto) 0.0 Abs Immat Gran (auto) 0.02 Absolute Neuts (auto) 4.0 Absolute Nucleated RBC 0.000 Nucleated RBC % 0.0 PT 17.9 H INR 1.4 Sodium 133 L Potassium 3.3 L Chloride 95 L Carbon Dioxide 31 H Anion Gap 7 BUN 62 H Creatinine 8.74 H Estim Creat Clear Calc 12 Estimated GFR 6 L Glucose 115 H POC Capillary Glucose 137 H Calcium 8.8
[2024-09-06] MEDS: WARFARIN (*PBKC) 5 MG TABLET PO (17:12)
[2024-09-06] MEDS: oxyCODONE HCL (*CRX) 5 MG TAB IR PO ×2 (17:13→21:44)
[2024-09-06 17:22] LABS: Glucose Point of Care 92 mg/dl (65-105)
[2024-09-06] MEDS: ERYTHROMYCIN OPHTH OINTMENT 1 GM TUBE 1 APPLIC EACH EYE (20:52)
[2024-09-06] MEDS: INSULIN ASPART (*BKC) 100 UNITS/ML SUB-Q (21:41)
[2024-09-06 22:16] LABS: Glucose Point of Care 324 mg/dl (65-105)
[2024-09-07] VITALS (10 sets, daily range): BP systolic 114–127; BP diastolic 71–79; PULSE 88–112; RESP 16–18; TEMP 36.4–36.7; O2SAT 94–99
[2024-09-07] MEDS: oxyCODONE HCL (*CRX) 5 MG TAB IR PO ×4 (04:57→21:36)
[2024-09-07 06:24] LABS: INR 1.4; Prothrombin Time 17.3 Seconds (11.1-14.7)
[2024-09-07] MEDS: LEVOTHYROXINE SODIUM 25 MCG TABLET PO (06:25)
[2024-09-07 06:27] LABS: Anion Gap 8 mmol/L (4-12); Blood Urea Nitrogen 62 mg/dL (9-20); Calcium 8.8 mg/dL (8.4-10.2); Carbon Dioxide 31 mmol/L (22-30); Chloride 95 mmol/L (98-107); Estimated CRCL calculation 12 ml/min; Estimated Glomerular Filt Rate 6; Glucose 216 mg/dL (65-110); Sodium 134 mmol/L (137-145)
[2024-09-07 08:04] LABS: Glucose Point of Care 190 mg/dl (65-105)
[2024-09-07] MEDS: INSULIN ASPART (*BKC) 100 UNITS/ML 7 UNITS SUB-Q ×3 (08:43→17:20)
[2024-09-07] MEDS: INSULIN GLARGINE (*BKC) 100 UNITS/ML 35 UNITS SUB-Q ×2 (08:44→23:12)
[2024-09-07] MEDS: ASPIRIN 81 MG CHEWABLE TABLET PO (08:47)
[2024-09-07] MEDS: AMOXICILLIN/CLAVULANATE K 500-125 MG TAB 1 TABLET PO ×2 (08:47→21:37)
[2024-09-07] MEDS: ATORVASTATIN 40 MG TABLET 80 MG PO (08:48)
[2024-09-07] MEDS: CALCIUM ACETATE 667 MG TABLET PO ×4 (08:48→21:36)
[2024-09-07] MEDS: calcitrioL 0.25 MCG CAPSULE PO (08:48)
[2024-09-07] MEDS: METOPROLOL TARTRATE 25 MG TABLET PO ×2 (08:48→21:37)
[2024-09-07] MEDS: EZETIMIBE 10 MG TABLET PO (08:48)
[2024-09-07] MEDS: PANTOPRAZOLE 40 MG TABLET PO (08:49)
[2024-09-07] MEDS: valACYclovir HCL 500 MG TABLET PO (08:49)
[2024-09-07] MEDS: TAMSULOSIN HCL 0.4 MG CAPSULE PO ×2 (08:49→17:19)
--- NOTE | 2024-09-07 08:52 | PM.IMPN ---
Progress Note: A&P Assessment and Plan (1) Type 1 diabetes mellitus: Qualifiers: Diabetes mellitus complication detail: without coma Diabetes mellitus complication status: with ketoacidosis Qualified Code(s): E10.10 - Type 1 diabetes mellitus with ketoacidosis without coma Code(s): E10.9 - Type 1 diabetes mellitus without complications Status: Acute (2) DKA (diabetic ketoacidosis): Qualifiers: Diabetes mellitus complication detail: without coma Diabetes mellitus type: type 1 Qualified Code(s): E10.10 - Type 1 diabetes mellitus with ketoacidosis without coma Code(s): E11.10 - Type 2 diabetes mellitus with ketoacidosis without coma Status: Acute (3) Cholelithiasis: Qualifiers: Biliary obstruction: without biliary obstruction Cholecystitis presence: without cholecystitis Cholelithiasis location: gallbladder Qualified Code(s): K80.20 - Calculus of gallbladder without cholecystitis without obstruction Code(s): K80.20 - Calculus of gallbladder without cholecystitis without obstruction Status: Acute (4) End stage renal disease on dialysis: Code(s): N18.6 - End stage renal disease; Z99.2 - Dependence on renal dialysis Status: Acute (5) Essential hypertension: Code(s): I10 - Essential (primary) hypertension Status: Chronic (6) Paroxysmal atrial fibrillation: Code(s): I48.0 - Paroxysmal atrial fibrillation Status: Acute (7) Sepsis: Code(s): A41.9 - Sepsis, unspecified organism Status: Acute (8) Pancytopenia: Code(s): D61.818 - Other pancytopenia Status: Acute (9) Acute hypoxemic respiratory failure: Code(s): J96.01 - Acute respiratory failure with hypoxia Status: Acute (10) ESRD on peritoneal dialysis: Code(s): N18.6 - End stage renal disease; Z99.2 - Dependence on renal dialysis Status: Acute (11) Patient on peritoneal dialysis: Code(s): Z99.2 - Dependence on renal dialysis Status: Acute (12) End stage renal disease: Code(s): N18.6 - End stage renal disease Status: Chronic (13) Hyperglycemia due to diabetes mellitus: Code(s): E11.65 - Type 2 diabetes mellitus with hyperglycemia Status: Acute (14) Type 1 diabetes mellitus with hyperglycemia: Code(s): E10.65 - Type 1 diabetes mellitus with hyperglycemia Status: Chronic Plan Diabetic ketoacidosis: Code(s): E11.10 - Type 2 diabetes mellitus with ketoacidosis without coma Status: Acute Assessment and Plan: Pt will be given 1 L IVF bolus On admission further fluids were held due to patient's end-stage renal disease Insulin infusion was started and Q1H glucose monitoring was done Serial labs were done His anion gap closed and and patient has been transition to subcutaneous insulin he is tolerating p.o. diet Consult dietitian and hematology nurse educator increase Lantus today continue Accu-Cheks and sliding scale insulin ESRD on peritoneal dialysis: Code(s): N18.6 - End stage renal disease; Z99.2 - Dependence on renal dialysis Status: Acute Assessment and Plan: Patient is getting PD every night. Nephrology following Sepsis: Code(s): A41.9 - Sepsis, unspecified organism Status: Acute Assessment and Plan: Patient met criteria for sepsis. Chest x-ray shows left lower lobe infiltrate suggestive of pneumonia. Patient also has right upper quadrant tenderness and has history of cholelithiasis Due to his as treatment disease be given conservative amount of IV fluids and 1 L fluid bolus was get Blood cultures, UA and micro are negative procalcitonin level was 1.6 CT chest abdomen pelvis could not be done as patient was unable to lay flat right upper quadrant ultrasound showed cholelithiasis but no evidence of cholecystitis, patient seen by surgery, no intervention at this time sent peritoneal fluid for cytology and was negative and preliminary cultures are negative - discontinue vancomycin. - Switch Zosyn to p.o. Augmentin. Switch azithromycin to p.o. Status post Jonn-Synephrine for greater than 48 hours Pneumonia: Qualifiers: Pneumonia type: due to unspecified organism Laterality: left Lung location: lower lobe of lung Qualified Code(s): J18.9 - Pneumonia, unspecified organism Code(s): J18.9 - Pneumonia, unspecified organism Status: Acute Assessment and Plan: See above Cholelithiasis: Qualifiers: Cholelithiasis location: gallbladder Cholecystitis presence: without cholecystitis Biliary obstruction: without biliary obstruction Qualified Code(s): K80.20 - Calculus of gallbladder without cholecystitis without obstruction Code(s): K80.20 - Calculus of gallbladder without cholecystitis without obstruction Status: Acute Assessment and Plan: Tenderness in right upper quadrant. right upper quadrant ultrasound showed cholelithiasis with no evidence of cholecystitis. Patient was seen by General surgery and recommend low-fat diet at this time. No plan for surgical intervention at the moment General surgeon does not recommend surgical intervention except for true emergent basis. If he were to require surgery, he would be better suited at a tertiary care facility due to his very low cardiac ejection fraction and other medical issues. Abdominal pain: Code(s): R10.9 - Unspecified abdominal pain Status: Resolved Assessment and Plan: See above Hypertension: Code(s): I10 - Essential (primary) hypertension Status: Chronic Assessment and Plan: Blood pressure borderline Hold amlodipine and beta-umair upon arrival Blood pressure bumped up, resume beta-umair 25 mg b.i.d. p.o. Paroxysmal atrial fibrillation: Code(s): I48.0 - Paroxysmal atrial fibrillation Status: Acute Assessment and Plan: resume beta-umair anticoagulated with warfarin -INR 1.4 Increase warfarin 5mg from 3 mg 09/06 Increase warfarin 7.5mg from 5 mg 09/07, INR 1.4 Severe systolic heart failure Echocardiogram September 2023 Left ventricular systolic function is severely reduced, estimated at 20-25%. Patient does not know he has severe chronic systolic heart failure Patient does not have AICD Repeat echocardiogram, 1. Left ventricular chamber dimension is mildly enlarged. 2. There is mildly increased left ventricular wall thickness. 3. Left ventricular systolic function is severely reduced with an ejection fraction by Biplane Method of Discs of 25 %. 4. Right ventricular chamber dimension is normal. 5. Right ventricular systolic function is reduced. 6. Left atrial chamber dimension is mildly enlarged. 7. Right atrial chamber dimension is mildly enlarged. 8. There is no regurgitation of the mechanical aortic valve. Mean gradient of 6mmHg. Valve is well seated and appears to be functioning appropriately. 9. There is mild mitral valve regurgitation. 10. There is mild tricuspid valve regurgitation. 11. Pulmonary hypertension, estimated pulmonary arterial systolic pressure is 51 mmHg. Consult cardiology for evaluation treatment Appreciate cardiology consultation DVT prophylaxis -resume warfarin Stress ulcer prophylaxis -continue home PPI Nutrition - diet order Code Status - Full Code PT OT incentive spirometry up in chair Subjective Date/time seen: 09/07/24 08:52 Interval history: Saw exam patient today, patient feels dyspnea continue to improve, denies chest pain palpitation, abdomen pain, fever, chills. PERITONEAL DIALYSIS UF [id number] PD orders, same, to continue PD supervised D/w dialysis staff Exam Narrative: GENERAL: Pleasant, in no acute distress. Well-nourished. - EYES: EOMI. Anicteric. - HENT: Moist mucous membranes. - LUNGS: Coarse breath sound bilateral base no wheezing, rhonchi, or rales. - CARDIOVASCULAR: Regular rate and rhythm. No murmur. No JVD. - ABDOMEN: Soft, non-tender and non-distended. No palpable masses. - EXTREMITIES: No edema. Peripheral pulses 2+. Non-tender. - NEUROLOGIC: No focal neurological deficits. CN II-XII grossly intact. General weakness - PSYCHIATRIC: Awake, Alert and oriented x 3. Appropriate mood and affect. - SKIN: No rashes or lesions. Warm. - LYMPH: No cervical lymphadenopathy. Objective Data Vital Signs Vital Signs: Vital Signs - 24 hr 09/06/24 08:55 09/06/24 13:51 09/06/24 20:00 Temperature 98.0 F Pulse Rate 120 H 97 Respiratory Rate 18 Blood Pressure 115/57 L Pulse Oximetry 98 Oxygen Delivery Room Air 09/06/24 20:50 09/06/24 21:08 09/07/24 05:07 Temperature 97.8 F 97.7 F Pulse Rate 97 104 H 109 H Respiratory Rate 18 16 Blood Pressure 129/85 127/79 Pulse Oximetry 97 97 Oxygen Delivery 09/07/24 06:30 09/07/24 08:48 Temperature 97.7 F Pulse Rate 109 H 104 H Respiratory Rate 16 Blood Pressure 127/79 Pulse Oximetry Oxygen Delivery Intake/Output Intake/Output: Intake & Output 09/04/24 09/05/24 09/06/24 09/07/24 23:59 23:59 23:59 23:59 Intake Total 600 2070 1020 500 Output Total 1766 1027 1814 1584 Balance -1166 3724 -533 -3048 Meds/Results Medications: Active Medications Generic Name Dose Route Start Last Admin Trade Name Freq PRN Reason Stop Dose Admin Acetaminophen 650 mg 08/31/24 19:35 09/06/24 12:09 Acetaminophen 325 Mg Tablet PO 650 mg Q4H PRN Administration Mild Pain (1-3) or Fever Albuterol 2.5 mg 08/31/24 13:59 Albuterol Sulfate Neb 2.5 Mg/3 Ml Inh INHALATION Q4HRT PRN Shortness Of Breath Or Wheezing Albuterol 1 puff 08/31/24 22:48 Albuterol Sulfate (*Sp) Aerosol 1 Puff INHALATION Q6HRT PRN shortness of breath or wheezing Amoxicillin/Clavulanate Potassium 1 tablet 09/03/24 12:40 09/07/24 08:47 Amoxicillin/Clavulanate K 500-125 Mg Tab PO 1 tablet Q12HR ASHLEY Administration Aspirin 81 mg 09/01/24 09:00 09/07/24 08:47 Aspirin 81 Mg Chewable Tablet PO 81 mg DAILY ASHLEY Administration Atorvastatin Calcium 80 mg 09/01/24 09:00 09/07/24 08:48 Atorvastatin 40 Mg Tablet PO 80 mg DAILY ASHLEY Administration Benzocaine 1 lozenge 09/06/24 06:29 Benzocaine/Menthol (*Bkc) 18 Ea Lozenge PO PRN PRN Sore Throat Calcitriol 0.25 mcg 09/01/24 09:00 09/07/24 08:48 Calcitriol 0.25 Mcg Capsule PO 0.25 mcg QAM ASHLEY Administration Calcium Acetate 667 mg 08/31/24 21:00 09/07/24 08:48 Calcium Acetate 667 Mg Tablet PO 667 mg QID ASHLEY Administration Cyclobenzaprine HCl 10 mg 08/31/24 23:58 09/01/24 00:03 Cyclobenzaprine Hcl 10 Mg Tablet PO 10 mg Q8H PRN Administration muscle spasm Cyclosporine 1 drop 08/31/24 22:50 09/06/24 20:52 Cyclosporine 0.4 Ml Ophth Solution EACH EYE 1 drop Q12HR ASHLEY Administration Dextrose 12.5 gm 09/01/24 10:48 Dextrose 50% 25 Gm/50 Ml Syringe IV PUSH PRN PRN Hypoglycemia Protocol Ezetimibe 10 mg 09/01/24 09:00 09/07/24 08:48 Ezetimibe 10 Mg Tablet PO 10 mg DAILY ASHLEY Administration Erythromycin 1 applic 08/31/24 23:05 09/06/24 20:52 Erythromycin Ophth Ointment 1 Gm Tube EACH EYE 1 applic HS ASHLEY Administration Gentamicin Sulfate 1 applic 09/01/24 17:00 09/05/24 20:07 Gentamicin Sulfate 0.1% Oint 15 Gm Tube TOPICAL 1 applic DAILY ASHLEY Administration Glucagon 1 mg 09/01/24 10:48 Glucagon For Inj 1 Mg Vial IM PRN PRN Hypoglycemia Protocol Glucose 15 gm 09/01/24 10:48 Glucose Oral Gel 15 Gm Of Glucse In 37.5 Gm Tube PO PRN PRN Hypoglycemia Protocol Hydromorphone HCl 0.5 mg 08/31/24 19:39 Hydromorphone Hcl Inj (*Crx) 1 Mg/Ml Syr IV PUSH Q3H PRN Pain Rated 7-10 Dextrose 1,000 mls @ 100 mls/hr 09/01/24 10:48 Dextrose 5% 1,000 Ml IVPB PRN PRN Hypoglycemia Protocol Insulin Aspart 4 - 8 units 09/01/24 12:00 09/07/24 08:47 Insulin Aspart (*Bkc) 100 Units/Ml SUB-Q Not Given TIDWM ASHLEY Protocol Insulin Aspart 2 - 4 units 09/01/24 21:00 09/06/24 21:41 Insulin Aspart (*Bkc) 100 Units/Ml SUB-Q 3 units HS ASHLEY Administration Protocol Insulin Aspart 7 units 09/04/24 12:00 09/07/24 08:43 Insulin Aspart (*Bkc) 100 Units/Ml SUB-Q 7 units TIDWM ASHLEY Administration Insulin Glargine 35 units 09/04/24 08:49 09/07/24 08:44 Insulin Glargine (*Bkc) 100 Units/Ml SUB-Q 35 units Q12HR ASHLEY Administration Levothyroxine Sodium 25 mcg 09/01/24 06:30 09/07/24 06:25 Levothyroxine Sodium 25 Mcg Tablet PO 25 mcg DAILY@0630 ASHLEY Administration Metoclopramide HCl 10 mg 09/05/24 17:31 09/05/24 17:49 Metoclopramide Hcl Inj 10 Mg/2 Ml Vial IV PUSH 10 mg Q6HR PRN Administration nausea Metoprolol Tartrate 25 mg 09/03/24 09:00 09/07/24 08:48 Metoprolol Tartrate 25 Mg Tablet PO 25 mg Q12HR ASHLEY Administration Nitroglycerin 0.4 mg 08/31/24 22:48 Nitroglycerin Sl 0.4 Mg Tablet SUBLINGUAL Q5MIN PRN Chest Pain Oxycodone HCl 5 mg 08/31/24 19:39 09/07/24 04:57 Oxycodone Hcl (*Crx) 5 Mg Tab Ir PO 5 mg Q4H PRN Administration Pain Rated 7-10 Pantoprazole Sodium 40 mg 09/01/24 09:00 09/07/24 08:49 Pantoprazole 40 Mg Tablet PO 40 mg QAM [facility] Administration Tamsulosin HCl 0.4 mg 08/31/24 19:45 09/07/24 08:49 Tamsulosin Hcl 0.4 Mg Capsule PO 0.4 mg BID ASHLEY Administration Valacyclovir HCl 500 mg 09/05/24 09:00 09/07/24 08:49 Valacyclovir Hcl 500 Mg Tablet PO 500 mg DAILY ASHLEY Administration Warfarin Sodium 7.5 mg 09/07/24 17:00 Warfarin (*Pbkc) 7.5 Mg Tablet PO DAILY@1700 [facility] Radiology Results: ITS Impressions Chest X-Ray 08/31/24 13:03 IMPRESSION: Patchy left mid and particularly lower lung infiltrate and/or atelectasis, increased since 08/18/2024 Small left pleural effusion Abdomen Ultrasound 09/01/24 09:21 IMPRESSION: Cholelithiasis Labs Labs: Laboratory Results - last 24 hr 09/06/24 09/06/24 09/06/24 10:39 11:53 17:13 WBC 6.4 RBC 3.67 L Hgb 11.5 L Hct 34.4 L MCV 93.7 MCH 31.3 MCHC 33.4 RDW 15.5 H Plt Count 163 MPV 9.9 Immature Gran % (Auto) 0.3 Neut % (Auto) 63.5 Lymph % (Auto) 16.1 L [place] % (Auto) 15.0 H Eos % (Auto) 4.6 H Baso % (Auto) 0.5 Lymph # (Auto) 1.02 [place] # (Auto) 1.0 H Eos # (Auto) 0.3 Baso # (Auto) 0.0 Abs Immat Gran (auto) 0.02 Absolute Neuts (auto) 4.0 Absolute Nucleated RBC 0.000 Nucleated RBC % 0.0 PT 17.9 H INR 1.4 Sodium 133 L Potassium 3.3 L Chloride 95 L Carbon Dioxide 31 H Anion Gap 7 BUN 62 H Creatinine 8.74 H Estim Creat Clear Calc 12 Estimated GFR 6 L Glucose 115 H POC Capillary Glucose 137 H 92 Calcium 8.8 09/06/24 09/07/24 09/07/24 20:57 05:44 08:00 WBC RBC Hgb Hct MCV MCH MCHC RDW Plt Count MPV Immature Gran % (Auto) Neut % (Auto) Lymph % (Auto) [place] % (Auto) Eos % (Auto) Baso % (Auto) Lymph # (Auto) [place] # (Auto) Eos # (Auto) Baso # (Auto) Abs Immat Gran (auto) Absolute Neuts (auto) Absolute Nucleated RBC Nucleated RBC % PT 17.3 H INR 1.4 Sodium 134 L Potassium 4.0 Chloride 95 L Carbon Dioxide 31 H Anion Gap 8 BUN 62 H Creatinine 8.62 H Estim Creat Clear Calc 12 Estimated GFR 6 L Glucose 216 H POC Capillary Glucose 324 H 190 H Calcium 8.8
[2024-09-07] MEDS: GENTAMICIN SULFATE 0.1% OINT 15 GM TUBE 1 APPLIC TOPICAL (09:33)
--- NOTE | 2024-09-07 10:16 | P.PNCA_ITS ---
Progress Note: A&P Assessment and Plan (1) H/O mechanical aortic valve replacement: Code(s): Z95.2 - Presence of prosthetic heart valve Status: Acute Plan History of mechanical aortic valve replacement on X valve Possible proximal atrial fibrillation End-stage renal disease on hemodialysis DKA on presentation Hypertension Hypothyroidism Mixed dyslipidemia Plan Warfarin with target INR 2-3 since the patient had possible atrial fibrillation Monitor with telemetry in the hospital and consider event monitor on discharge to confirm a diagnosis of atrial fibrillation since target INR would be higher Continue metoprolol Continue statin Subjective Date/time seen: 09/07/24 10:16 Interval history: No acute events Patient is not on telemetry Review of Systems Review of Systems: All systems reviewed & are unremarkable except as noted in HPI and below Exam Const: General: comfortable HENMT: Mouth: Yes moist mucous membranes Eyes: EOM: EOMs intact bilaterally Neck: Neck: no JVD Resp: Auscultation: clear to auscultation bilaterally Cardio: Rate: regular rate Rhythm: regular rhythm GI: GI Palp: Yes Soft to palpation Extrem: General: pedal edema Objective Data Vital Signs Vital Signs: Vital Signs - 24 hr 09/06/24 13:51 09/06/24 20:00 09/06/24 20:50 Temperature 36.7 C Pulse Rate 97 97 Respiratory Rate 18 Blood Pressure 115/57 L Pulse Oximetry 98 Oxygen Delivery Room Air 09/06/24 21:08 09/07/24 05:07 09/07/24 06:30 Temperature 36.6 C 36.5 C 36.5 C Pulse Rate 104 H 109 H 109 H Respiratory Rate 18 16 16 Blood Pressure 129/85 127/79 127/79 Pulse Oximetry 97 97 Oxygen Delivery 09/07/24 08:35 09/07/24 08:48 Temperature Pulse Rate 104 H Respiratory Rate Blood Pressure Pulse Oximetry Oxygen Delivery Room Air Intake/Output Intake/Output: Intake & Output 09/04/24 09/05/24 09/06/24 09/07/24 23:59 23:59 23:59 23:59 Intake Total 600 2070 1020 620 Output Total 1766 1027 1814 1584 Balance -1166 5133 -794 -964 Meds/Results Medications: Active Medications Generic Name Dose Route Start Last Admin Trade Name Freq PRN Reason Stop Dose Admin Acetaminophen 650 mg 08/31/24 19:35 09/06/24 12:09 Acetaminophen 325 Mg Tablet PO 650 mg Q4H PRN Administration Mild Pain (1-3) or Fever Albuterol 2.5 mg 08/31/24 13:59 Albuterol Sulfate Neb 2.5 Mg/3 Ml Inh INHALATION Q4HRT PRN Shortness Of Breath Or Wheezing Albuterol 1 puff 08/31/24 22:48 Albuterol Sulfate (*Sp) Aerosol 1 Puff INHALATION Q6HRT PRN shortness of breath or wheezing Amoxicillin/Clavulanate Potassium 1 tablet 09/03/24 12:40 09/07/24 08:47 Amoxicillin/Clavulanate K 500-125 Mg Tab PO 1 tablet Q12HR ASHLEY Administration Aspirin 81 mg 09/01/24 09:00 09/07/24 08:47 Aspirin 81 Mg Chewable Tablet PO 81 mg DAILY ASHLEY Administration Atorvastatin Calcium 80 mg 09/01/24 09:00 09/07/24 08:48 Atorvastatin 40 Mg Tablet PO 80 mg DAILY ASHLEY Administration Benzocaine 1 lozenge 09/06/24 06:29 Benzocaine/Menthol (*Bkc) 18 Ea Lozenge PO PRN PRN Sore Throat Calcitriol 0.25 mcg 09/01/24 09:00 09/07/24 08:48 Calcitriol 0.25 Mcg Capsule PO 0.25 mcg QAM ASHLEY Administration Calcium Acetate 667 mg 08/31/24 21:00 09/07/24 08:48 Calcium Acetate 667 Mg Tablet PO 667 mg QID ASHLEY Administration Cyclobenzaprine HCl 10 mg 08/31/24 23:58 09/01/24 00:03 Cyclobenzaprine Hcl 10 Mg Tablet PO 10 mg Q8H PRN Administration muscle spasm Cyclosporine 1 drop 08/31/24 22:50 09/07/24 08:54 Cyclosporine 0.4 Ml Ophth Solution EACH EYE Not Given Q12HR ASHLEY Dextrose 12.5 gm 09/01/24 10:48 Dextrose 50% 25 Gm/50 Ml Syringe IV PUSH PRN PRN Hypoglycemia Protocol Ezetimibe 10 mg 09/01/24 09:00 09/07/24 08:48 Ezetimibe 10 Mg Tablet PO 10 mg DAILY ASHLEY Administration Erythromycin 1 applic 08/31/24 23:05 09/06/24 20:52 Erythromycin Ophth Ointment 1 Gm Tube EACH EYE 1 applic HS ASHLEY Administration Gentamicin Sulfate 1 applic 09/01/24 17:00 09/07/24 09:33 Gentamicin Sulfate 0.1% Oint 15 Gm Tube TOPICAL 1 applic DAILY ASHLEY Administration Glucagon 1 mg 09/01/24 10:48 Glucagon For Inj 1 Mg Vial IM PRN PRN Hypoglycemia Protocol Glucose 15 gm 09/01/24 10:48 Glucose Oral Gel 15 Gm Of Glucse In 37.5 Gm Tube PO PRN PRN Hypoglycemia Protocol Hydromorphone HCl 0.5 mg 08/31/24 19:39 Hydromorphone Hcl Inj (*Crx) 1 Mg/Ml Syr IV PUSH Q3H PRN Pain Rated 7-10 Dextrose 1,000 mls @ 100 mls/hr 09/01/24 10:48 Dextrose 5% 1,000 Ml IVPB PRN PRN Hypoglycemia Protocol Insulin Aspart 4 - 8 units 09/01/24 12:00 09/07/24 08:47 Insulin Aspart (*Bkc) 100 Units/Ml SUB-Q Not Given TIDWM [facility] Protocol Insulin Aspart 2 - 4 units 09/01/24 21:00 09/06/24 21:41 Insulin Aspart (*Bkc) 100 Units/Ml SUB-Q 3 units HS ASHLEY Administration Protocol Insulin Aspart 7 units 09/04/24 12:00 09/07/24 08:43 Insulin Aspart (*Bkc) 100 Units/Ml SUB-Q 7 units TIDWM ASHLEY Administration Insulin Glargine 35 units 09/04/24 08:49 09/07/24 08:44 Insulin Glargine (*Bkc) 100 Units/Ml SUB-Q 35 units Q12HR ASHLEY Administration Levothyroxine Sodium 25 mcg 09/01/24 06:30 09/07/24 06:25 Levothyroxine Sodium 25 Mcg Tablet PO 25 mcg DAILY@0630 ASHLEY Administration Metoclopramide HCl 10 mg 09/05/24 17:31 09/05/24 17:49 Metoclopramide Hcl Inj 10 Mg/2 Ml Vial IV PUSH 10 mg Q6HR PRN Administration nausea Metoprolol Tartrate 25 mg 09/03/24 09:00 09/07/24 08:48 Metoprolol Tartrate 25 Mg Tablet PO 25 mg Q12HR ASHLEY Administration Nitroglycerin 0.4 mg 08/31/24 22:48 Nitroglycerin Sl 0.4 Mg Tablet SUBLINGUAL Q5MIN PRN Chest Pain Oxycodone HCl 5 mg 08/31/24 19:39 09/07/24 09:31 Oxycodone Hcl (*Crx) 5 Mg Tab Ir PO 5 mg Q4H PRN Administration Pain Rated 7-10 Pantoprazole Sodium 40 mg 09/01/24 09:00 09/07/24 08:49 Pantoprazole 40 Mg Tablet PO 40 mg QAM ASHLEY Administration Tamsulosin HCl 0.4 mg 08/31/24 19:45 09/07/24 08:49 Tamsulosin Hcl 0.4 Mg Capsule PO 0.4 mg BID ASHLEY Administration Valacyclovir HCl 500 mg 09/05/24 09:00 09/07/24 08:49 Valacyclovir Hcl 500 Mg Tablet PO 500 mg DAILY [facility] Administration Warfarin Sodium 7.5 mg 09/07/24 17:00 Warfarin (*Pbkc) 7.5 Mg Tablet PO DAILY@1700 [facility] Radiology Results: ITS Impressions Chest X-Ray 08/31/24 13:03 IMPRESSION: Patchy left mid and particularly lower lung infiltrate and/or atelectasis, increased since 08/18/2024 Small left pleural effusion Abdomen Ultrasound 09/01/24 09:21 IMPRESSION: Cholelithiasis Labs Labs: Laboratory Results - last 24 hr 09/06/24 09/06/24 09/06/24 10:39 11:53 17:13 WBC 6.4 RBC 3.67 L Hgb 11.5 L Hct 34.4 L MCV 93.7 MCH 31.3 MCHC 33.4 RDW 15.5 H Plt Count 163 MPV 9.9 Immature Gran % (Auto) 0.3 Neut % (Auto) 63.5 Lymph % (Auto) 16.1 L [place] % (Auto) 15.0 H Eos % (Auto) 4.6 H Baso % (Auto) 0.5 Lymph # (Auto) 1.02 [place] # (Auto) 1.0 H Eos # (Auto) 0.3 Baso # (Auto) 0.0 Abs Immat Gran (auto) 0.02 Absolute Neuts (auto) 4.0 Absolute Nucleated RBC 0.000 Nucleated RBC % 0.0 PT 17.9 H INR 1.4 Sodium 133 L Potassium 3.3 L Chloride 95 L Carbon Dioxide 31 H Anion Gap 7 BUN 62 H Creatinine 8.74 H Estim Creat Clear Calc 12 Estimated GFR 6 L Glucose 115 H POC Capillary Glucose 137 H 92 Calcium 8.8 09/06/24 09/07/24 09/07/24 20:57 05:44 08:00 WBC RBC Hgb Hct MCV MCH MCHC RDW Plt Count MPV Immature Gran % (Auto) Neut % (Auto) Lymph % (Auto) [place] % (Auto) Eos % (Auto) Baso % (Auto) Lymph # (Auto) [place] # (Auto) Eos # (Auto) Baso # (Auto) Abs Immat Gran (auto) Absolute Neuts (auto) Absolute Nucleated RBC Nucleated RBC % PT 17.3 H INR 1.4 Sodium 134 L Potassium 4.0 Chloride 95 L Carbon Dioxide 31 H Anion Gap 8 BUN 62 H Creatinine 8.62 H Estim Creat Clear Calc 12 Estimated GFR 6 L Glucose 216 H POC Capillary Glucose 324 H 190 H Calcium 8.8
[2024-09-07 10:44] LABS: Basophils Percent Auto 0.3 % (0.2-1.2); Eosinophils Absolute Auto 0.3 K/mm3 (0-0.3); Hematocrit 33.1 % (42.0-52.0); Hemoglobin 10.9 g/dL (14.0-18.0); Immature Granulocyte Absolute 0.02 K/mm3 (0.00-0.031); Immature Granulocyte Percent A 0.3 % (0-0.5); Lymphocytes Absolute Auto 0.97 K/mm3 (0.9-3.2); Lymphocytes Percent Auto 16.7 % (18.3-44.2); Mean Corpuscular HGB Conc 32.9 g/dl (32-36); Mean Corpuscular Hemoglobin 31.1 pg (26-34); Mean Corpuscular Volume 94.6 fl (80-100); Mean Platelet Volume 10.1 fl (7.4-10.4); Monocytes Percent Auto 17.4 % (2.6-8.5); Neutrophils Absolute Auto 3.5 K/mm3 (1.3-6.7); Neutrophils Percent Auto 60.3 % (45.5-73.1); Platelet Count Result 174 k/mm3 (150-375); Red Cell Distribution Width 15.6 % (11.5-14.5); White Blood Count 5.8 K/mm3 (4.5-10.0)
[2024-09-07 10:54] LABS: Anion Gap 7 mmol/L (4-12); Blood Urea Nitrogen 59 mg/dL (9-20); Calcium 9.1 mg/dL (8.4-10.2); Carbon Dioxide 30 mmol/L (22-30); Chloride 96 mmol/L (98-107); Estimated CRCL calculation 12 ml/min; Estimated Glomerular Filt Rate 6; Glucose 181 mg/dL (65-110); Potassium 3.7 mmol/L (3.4-5.0); Sodium 133 mmol/L (137-145)
[2024-09-07 10:57] LABS: INR 1.4; Prothrombin Time 18.1 Seconds (11.1-14.7)
[2024-09-07 11:51] LABS: Glucose Point of Care 130 mg/dl (65-105)
[2024-09-07 16:59] LABS: Glucose Point of Care 127 mg/dl (65-105)
[2024-09-07] MEDS: WARFARIN (*PBKC) 7.5 MG TABLET PO (17:20)
--- OUTSIDE RECORDS SUMMARY | 2024-09-07 18:54 | XMS_ITS | Continuity of Care Document ---
Author Organization [facility] Address [address] [place] [address]- Care Team Providers Care Clock And Watch Hands Mounter Name Role Phone DR. STEPHANIE CORREA Primary Care Physician Encounter 02/28/24 - 03/12/24 [facility] [address] [place] [address]- Allergies, Adverse Reactions, Alerts Substance Criticality Severity Reaction Reaction Severity Status allopurinol High criticality Severe Other A ctive iohexol Unable to assess criticality Unknown Active iodinated radiocontrast dyes Unable to assess criticality Unknown Unknown Eruption Active chlorhexidine containing compounds Unable to assess criticality Unknown Active ticagrelor Unable to assess criticality Unknown Active Brilinta High criticality Severe Eruption Act bianca Assessment and Plan Extracted from: Title:[facility] notes Author:ROXI Flores Crystal D ate:03/04/24 No qualifying data available Immunizations Given and Recorded Vaccine Date Status Refusal Reason palivizumab 1 12/30/19 Recorded palivizumab 2 08/21/19 Recorded 1Result Comment: Prevnar 13 2Result Comment: Pneumonia Medications aspirin 81 mg oral delayed release tablet 81 mg = 1 tab, Oral, Daily, # 90 tab, 0 Refill(s) Start Date: 12/11/23 Status: Ordered atorvastatin 80 mg oral tablet 80 mg = 1 tab, Oral, Daily, 0 Refill(s) Start Date: 05/12/23 Status: Ordered Basaglar KwikPen Subcutaneous, Daily, if not on insulin pump, 0 Refill(s) Start Date: 05/12/23 Status: Ordered calcitriol 0.25 mcg oral capsule 0.25 mcg = 1 cap, Oral, Daily, 0 Refill(s) Start Date: 05/12/23 Status: Ordered calcium acetate 667 mg oral tablet 667 mg = 1 tab, Oral, TID, 0 Refill(s) Start Date: 05/12/23 Status: Ordered colchicine 0.6 mg oral tablet 0.6 mg = 1 tab, Oral, Three times a week, 0 Refill(s) Start Date: 05/12/23 Status: Ordered docusate 100 mg, Oral, As Needed, 0 Refill(s) Start Date: 05/12/23 Status: Ordered ezetimibe 10 mg oral tablet 10 mg = 1 tab, Oral, Daily, 0 Refill(s) Start Date: 05/12/23 Status: Ordered famotidine 20 mg oral tablet 40 mg = 2 tab, Oral, every evening, 0 Refill(s) Start Date: 05/12/23 Status: Ordered famotidine 40 mg oral tablet 90 tab, 0 Refill(s) Start Date: 11/08/23 Status: Ordered gemfibrozil 600 mg oral tablet 600 mg = 1 tab, Oral, BID, 0 Refill(s) Start Date: 08/23/23 Status: Ordered hydrocodone-acetaminophen 5 mg-325 mg oral tablet 1 tab, Oral, every 4 hr, PRN as needed for pain, 0 Refill(s) Start Date: 12/11/23 Status: Ordered insulin isophane (NPH) Subcutaneous, BID, if not on insulin pump, 0 Refill(s) Start Date: 05/12/23 Status: Ordered levothyroxine 25 mcg (0.025 mg) oral capsule 25 mcg = 1 cap, Oral, Daily, # 30 cap, 0 Refill(s) Start Date: 12/11/23 Status: Ordered Linzess 72 mcg oral capsule 90 cap, 0 Refill(s) Start Date: 11/08/23 Status: Ordered losartan 25 mg oral tablet 25 mg = 1 tab, Oral, Daily, 1/2 tablet once a day, 0 Refill(s) Start Date: 08/23/23 Status: Ordered Mag-Ox 400 oral tablet 400 mg = 1 tab, Oral, Daily, PRN as needed, 0 Refill(s) Start Date: 12/11/23 Status: Ordered metoprolol tartrate 25 mg oral tablet 12.5 mg = 0.5 tab, Oral, Daily, # 60 tab, 0 Refill(s) Start Date: 11/08/23 Status: Ordered NovoLOG Subcutaneous, TID(AC), on a pump, 0 Refill(s) Start Date: 05/12/23 Status: Ordered NovoLOG Subcutaneous, TID(AC), if not on insulin pump, 0 Refill(s) Start Date: 05/12/23 Status: Ordered omeprazole 20 mg oral delayed release capsule 20 mg = 1 cap, Oral, Daily, 0 Refill(s) Start Date: 05/12/23 Status: Ordered torsemide 100 mg oral tablet 100 mg = 1 tab, Oral, Daily, # 30 tab, 0 Refill(s) Start Date: 11/08/23 Status: Ordered Vitamin D3 50,000 intl units (1250 mcg) oral capsule 1,250 mcg = 1 cap, Oral, every week, 0 Refill(s) Start Date: 05/12/23 Status: Ordered warfarin 3 mg oral tablet See Instructions, 1 tab Oral SUN, 0 Refill(s) Start Date: 12/11/23 Status: Ordered warfarin 3 mg oral tablet See Instructions, 0.5 tab Oral every other day, 0 Refill(s) Start Date: 12/11/23 Status: Ordered Problem List Condition Confirmation Course Effective Dates Status Health Status Informant Paroxysmal atrial fibrillation Confirmed Active Anemia of chronic renal failure Confirmed Active Angina pectoris, unspecified Confirmed Active Arthritis Confirmed Active Coronary artery disease Confirmed Active 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 Confirmed Active Dependence on peritoneal dialysis Confirmed Active Diabetic retinopathy Confirmed Active Dyslipidemia Confirmed Active End stage renal disease Confirmed Active GERD - Gastro-esophageal reflux disease Confirmed Active Gout Confirmed Active Heart failure Confirmed Active Heart failure with reduced ejection fraction Confirmed Active History of falling Confirmed Active Hypertensive renal failure Confirmed Active Neuropathy Confirmed Active Patient's noncompliance with other medical treatment and regimen for other reason Confirmed Active Obesity Confirmed Active Obstructive sleep apnea Confirmed Active Patient immunocompromised Confirmed Active Pneumonia Confirmed Active Secondary hyperparathyroidism of renal origin Confirmed Active Other thrombophilia Confirmed Active Type 1 diabetes mellitus Confirmed Active Procedures Procedure Date Related Diagnosis Body Site Status Appendectomy Completed Arthroscopy of knee Compl eted Cardiac catheterization C ompleted Coronary artery stent 1 C ompleted Excision of cataract Comp leted History of cholecystectomy Completed History of hernia repair Completed Insertion of peritoneal dialysis catheter Completed Reduction of fracture of fem ur with internal fixation Completed 1x4 Social History Social History Type Response Smoking Status Never (less than 100 in lifetime) entered on: 05/12/23 Sex Patient Care team information Care Team Personnel Name: Leandro Reyes Position: External Provider - [employer] Member Role: [employer] Address: Address: [address] [place] [address]- Name: LUAN Luevano Christine Position: Nurse - [facility] Member Role: [employer]ier [employer]ion Loom Fixer Name: [facility] Bianka Cavazos Position: External Provider - Clinic Member Role: Dialysis Center Address: Address: [address] [place] [address]- Name: DR. STEPHANIE CORREA Member Role: Primary Care Provider Address: Address: [address] [place] [id number] [place] Care Team Related Persons Name: Lorne Ching Name: Og Ching
--- OUTSIDE RECORDS SUMMARY | 2024-09-07 18:54 | XMS_ITS | Continuity of Care Document ---
Author Organization Video Visit - Home Address [address] [place] [address]- Care Team Providers Care Steel Post Installer Name Role Phone DR. STEPHANIE CORREA Primary Care Physician [phone] Encounter 05/12/23 - 05/15/23 Video Visit - Home [address] [place] [address]- Encounter Diagnosis Anemia of chronic renal failure(Discharge Diagnosis) - 05/11/23 Patient immunocompromised(Discharge Diagnosis) - 05/11/23 Neuropathy(Discharge Diagnosis) - 05/11/23 Gout(Discharge Diagnosis) - 05/11/23 Coronary artery disease(Discharge Diagnosis) - 05/11/23 Secondary hyperparathyroidism of renal origin(Discharge Diagnosis) - 05/11/23 Hypertensive renal failure(Discharge Diagnosis) - 05/11/23 Obstructive sleep apnea(Discharge Diagnosis) - 05/11/23 Major depression, single episode(Discharge Diagnosis) - 05/12/23 GERD - Gastro-esophageal reflux disease(Discharge Diagnosis) - 05/12/23 Dyslipidemia(Discharge Diagnosis) - 05/12/23 Obesity(Discharge Diagnosis) - 05/12/23 Arthritis(Discharge Diagnosis) - 05/12/23 Dependence on peritoneal dialysis(Discharge Diagnosis) - 05/12/23 Discharge Disposition: Home or Self Care Attending Physician: Misael, MSN, MACHINE STUFFER, BAILIFF-C, Ricarda Allergies, Adverse Reactions, Alerts Substance Reaction Severity Status allopurinol Other Severe Active iodinated radiocontrast dyes Eruption Severe Active Brilinta Eruption Severe Active Immunizations Given and Recorded Vaccine Date Status Refusal Reason palivizumab 1 12/30/19 Recorded palivizumab 2 08/21/19 Recorded 1Result Comment: Prevnar 13 2Result Comment: Pneumonia Medications atorvastatin 80 mg oral tablet 80 mg = 1 tab, Oral, Daily, 0 Refill(s) Start Date: 05/12/23 Status: Ordered Basaglar KwikPen Subcutaneous, Daily, if not on insulin pump, 0 Refill(s) Start Date: 05/12/23 Status: Ordered calcitriol 0.25 mcg oral capsule 0.25 mcg = 1 cap, Oral, Daily, 0 Refill(s) Start Date: 05/12/23 Status: Ordered calcium acetate 667 mg oral tablet 2,001 mg = 3 tab, Oral, TID, 0 Refill(s) Start Date: 05/12/23 Status: Ordered clopidogrel 75 mg oral tablet 75 mg = 1 tab, Oral, Daily, 0 Refill(s) Start Date: 05/12/23 Status: Ordered colchicine 0.6 mg oral tablet 0.6 mg = 1 tab, Oral, Daily, 0 Refill(s) Start Date: 05/12/23 Status: Ordered docusate 0 Refill(s) Start Date: 05/12/23 Status: Ordered Eliquis 2.5 mg oral tablet 2.5 mg = 1 tab, Oral, BID, # 60 tab, 0 Refill(s) Start Date: 05/12/23 Status: Ordered ezetimibe 10 mg oral tablet 10 mg = 1 tab, Oral, Daily, 0 Refill(s) Start Date: 05/12/23 Status: Ordered famotidine 20 mg oral tablet 20 mg = 1 tab, Oral, BID, 0 Refill(s) Start Date: 05/12/23 Status: Ordered furosemide 40 mg oral tablet 40 mg = 1 tab, Oral, Daily, 0 Refill(s) Start Date: 05/12/23 Status: Ordered furosemide 80 mg oral tablet 80 mg = 1 tab, Oral, Daily, 0 Refill(s) Start Date: 05/12/23 Status: Ordered insulin isophane (NPH) Subcutaneous, BID, if not on insulin pump, 0 Refill(s) Start Date: 05/12/23 Status: Ordered isosorbide mononitrate 30 mg oral tablet, extended release 30 mg = 1 tab, Oral, every morning, 0 Refill(s) Start Date: 05/12/23 Status: Ordered meloxicam 7.5 mg oral tablet 7.5 mg = 1 tab, Oral, Daily, 0 Refill(s) Start Date: 05/12/23 Status: Ordered metoprolol succinate 50 mg oral capsule, extended release 50 mg = 1 cap, Oral, Daily, 0 Refill(s) Start Date: 05/12/23 Status: Ordered NIFEdipine (Eqv-Procardia XL) 90 mg oral tablet, extended release 90 mg = 1 tab, Oral, Daily, 0 Refill(s) Start Date: 05/12/23 Status: Ordered NovoLOG Subcutaneous, TID(AC), on a pump, 0 Refill(s) Start Date: 05/12/23 Status: Ordered NovoLOG Subcutaneous, TID(AC), if not on insulin pump, 0 Refill(s) Start Date: 05/12/23 Status: Ordered omeprazole 20 mg oral delayed release capsule 20 mg = 1 cap, Oral, Daily, 0 Refill(s) Start Date: 05/12/23 Status: Ordered Potassium Chloride (Rui-Syzv-Zsi M20) 20 mEq, Oral, BID, 0 Refill(s) Start Date: 05/12/23 Status: Ordered ranolazine 500 mg oral tablet, extended release 500 mg = 1 tab, Oral, BID, 0 Refill(s) Start Date: 05/12/23 Status: Ordered Vascepa 1 g oral capsule 2 g = 2 cap, Oral, BID, 0 Refill(s) Start Date: 05/12/23 Status: Ordered Vitamin D3 50,000 intl units (1250 mcg) oral capsule 1,250 mcg = 1 cap, Oral, every week, 0 Refill(s) Start Date: 05/12/23 Status: Ordered Problem List Condition Confirmation Course Effective Dates Status Health Status Informant Anemia of chronic renal failure Confirmed Active Arthritis Confirmed Active Coronary artery disease Confirmed Active Dependence on peritoneal dialysis Confirmed Active Diabetic retinopathy Confirmed Active Dyslipidemia Confirmed Active GERD - Gastro-esophageal reflux disease Confirmed Active Gout Confirmed Active Heart failure Confirmed Active Heart failure with reduced ejection fraction Confirmed Active History of non-ST segment elevation myocardial infarction Confirmed Active Hypertensive renal failure Confirmed Active Major depression, single episode Confirmed Active Neuropathy Confirmed Active Obesity Confirmed Active Obstructive sleep apnea Confirmed Active Patient immunocompromised Confirmed Active Secondary hyperparathyroidism of renal origin Confirmed Active Type 1 diabetes mellitus Confirmed Active Diagnosis Diagnosis Type Effective Dates Health Status Clinical Service Informant Anemia of chronic renal failure Discharge Diagnosis 05/11/23 Secondary hyperparathyroidism of renal origin Discharge Diagnosis 05/11/23 Patient immunocompromised Discharge Diagnosis 05/11/23 Coronary artery disease Discharge Diagnosis 05/11/23 Obstructive sleep apnea Discharge Diagnosis 05/11/23 Hypertensive renal failure Discharge Diagnosis 05/11/23 Gout Discharge Diagnosis 05/11/23 Neuropathy Discharge Diagnosis 05/11/23 Dependence on peritoneal dialysis Discharge Diagnosis 05/12/23 Major depression, single episode Discharge Diagnosis 05/12/23 Arthritis Discharge Diagnosis 05/12/23 Obesity Discharge Diagnosis 05/12/23 GERD - Gastro-esophageal reflux disease Discharge Diagnosis 05/12/23 Dyslipidemia Discharge Diagnosis 05/12/23 Procedures Procedure Date Related Diagnosis Body Site Status Appendectomy Completed Arthroscopy of knee Compl eted Cardiac catheterization C ompleted Coronary artery stent 1 C ompleted Excision of cataract Comp leted History of cholecystectomy Completed History of hernia repair Completed Insertion of peritoneal dialysis catheter Completed Reduction of fracture of fem ur with internal fixation Completed 1x4 Vital Signs Most recent to oldest [Reference Range]: 1 Peripheral Pulse Rate [60-100 bpm] 69 bp m (05/12/23 11:00 AM) Blood Pressure [90-120/60-80 mmHg] 174/7 6mmHg *HI* (05/12/23 11:00 AM) Mean Arterial Pressure, Cuff [70-110 mmH g] 109 mmHg (05/12/23 11:00 AM) Social History Social History Type Response Smoking Status Never (less than 100 in lifetime) entered on: 05/12/23 Sex EVALUATION AND MANAGEMENT NOTE:FIND:PT:OUTPATIENT:DOC:{PROVIDER} * Misael, MSN, MACHINE STUFFER, BAILIFF-C, Ricarda: PERFORM Event Display: General Clinic Note (Physician) Authored Date: Comprehensive Health Evaluation for the re-evaluation of chronic conditions. History of Present Illness ASIMMACHO ADELIA??is a??52 Years??old??White??Male??with a history of ESRD due to unclear etiology at??Dialysis Treatment Facility Name: [facility] (PD). ??Patient seen via telehealth at [home] with the provider at remote office. Consent was obtained for use of telehealth during this encounter. This visit was conducted using live two way audio and visual communication. Patient identity was verbally verified using full name and date of for the encounter. ?? Patient is very pleasant and engaged throughout this entire evaluation. ??And medication??reconciliation was completed as the patient??did have his medication bottles available.?Patient lives at home with his??son??and a lease picker who comes??most days of the week.?Patient reports that he is independent with his ADLs however??occasionally needing help??with dressing.?Patient ambulates with a cane. ??He does report??a recent fall at home where he was not injured. ??Patient reports??significant??arthritis??throughout his body and reports that he has??unstable knees.? Patient reports that he was on the transplant list but he needed to lose weight and he is now closeto that target weight that was established for him.?? He is pending an evaluation by the transplantcenter to be put back on the list. ?? Patient denies recent hospitalizations or ED visits. ??Patient denies open wounds. ?? Patient has a medical history significant for diabetes, heart failure,??and ESRD. ? This record has been created using [employer] voice recognition software. Errors have been sought and corrected, but may not always be located. Such creation errors do not reflect on standard of care. Review of Systems CONSTITUTIONAL:??No fever, chills, diaphoresis. ??Reports being tired nearly every day.?? No changein activity. ??No appetite changes. ??No unexpected weight change. ENT/MOUTH:??No congestion. ??No post nasal drip. ??No sinus pain. ??No nosebleeds. ??No earache. ??No hearing loss. ??No dysphagia. ??No sore throat. ??No hoarseness. ??No toothache. EYES:??No pain. ??No discharge. ??No redness. ??No itching. ??No visual disturbances. ??No photophobia. ??No double vision. RESPIRATORY:??Does report some dyspnea??when he has chest pain.?? No cough. ??No sputum production.??No wheezing. CARDIOVASCULAR:??Mild lower extremity edema occasional chest pain.? No palpitations. ??No orthopnea. GASTROINTESTINAL: Some nausea.?? No vomiting. ??No diarrhea. ??Lifelong struggle with constipation.?? No abdominal pain. ??No abdominal swelling. ??No rectal bleeding. GENITOURINARY:??Produces urine.?? No dysuria or pain. ??No hesitancy. ??No urgency. ENDOCRINE:??No temperature intolerance. ??No unusual hunger or thirst. ??No hair loss. ??No dry skin. MUSCULOSKELETAL:??No cramping. ??No weakness. ??No myalgias. ??No claudication. ??Arthritic joint pain all over particularly of the knees. ??Ambulates with a cane.?? SKIN:??No rash. ??No color change. ??No wounds. ??No itching. IMMUNOLOGICAL:??No environmental allergies. ??Immunocompromised. NEUROLOGICAL:??No dizziness. ??No headaches. ??No syncope/near syncope. ??No seizures. ??No memory loss. ??No tremors. ??Numbness and tingling to hands and feet. HEMATOLOGIC/LYMPHATIC:??No unusual bleeding. ??No bruising. PSYCHIATRIC:??No confusion. ??No agitation. ??Depression. ??Some anxiety not diagnosed.? No insomnia. Physical Exam Vitals & Measurements HR:??69(Peripheral)?? BP:??174/76?? HT:??70??in?? WT:??258.000??lb?? WT:??258??lb?? BMI:??37.02?? Physical exam limited by telehealth visit. ?? GENERAL:??Well developed, well nourished. No apparent distress. HEAD:??Normocephalic. Face symmetric. EYES:??Conjugate gaze. No drainage. NOSE:??No discharge. MOUTH:??Tongue midline and pink. Moist oral mucosa. NECK:??Moves head around easily without restriction. Trachea appears midline. LUNGS:??Normal work of breathing, respiratory rate. ??No audible wheezing. HEART:??Normal rate, rhythm palpated by patient. No edema. ABDOMEN:??Non-distended. Round. No tenderness palpated by patient. SKIN:??No rashes. No visible wounds. No peripheral vascular changes. MUSCULOSKELETAL:??No gross deformities, contractures. NEUROLOGICAL:??Alert and oriented to person, place and time. Thought coherent. No memory loss. PSYCHIATRIC:??Appearance, behavior, speech and affect appropriate. FOOT: Mild edema noted to both feet. ? Access:??PD catheter.? Screenings ? Little Interest - Pleasure in Activities: Nearly every day (05/12/23 10:36:00) Feeling Down, Depressed, Hopeless: Not at all (05/12/23 10:36:00) Initial Depression Screen Score: 3 Score (05/12/23 10:36:00) Trouble Falling or Staying Asleep: Not at all (05/12/23 10:36:00) Feeling Tired or Little Energy: Nearly every day (05/12/23 10:36:00) Poor Appetite or Overeating: Several days (05/12/23 10:36:00) Feeling Bad About Yourself: Several days (05/12/23 10:36:00) Trouble Concentrating: Not at all (05/12/23 10:36:00) Moving or Speaking Slowly: Not at all (05/12/23 10:36:00) Thoughts Better Off or Hurting Self: Not at all (05/12/23 10:36:00) Detailed Depression Screen Score: 5 (05/12/23 10:36:00) Total Depression Screen Score: 8 (05/12/23 10:36:00) ?? Bathing ADL Index: Independent (2) (05/12/23 10:36:00) Dressing ADL Index: Requires assistance (1) (05/12/23 10:36:00) Toileting ADL Index: Independent (2) (05/12/23 10:36:00) Transferring Bed or Chair ADL Index: Independent (2) (05/12/23 10:36:00) Continence ADL Index: Independent (2) (05/12/23 10:36:00) Feeding ADL Index: Independent (2) (05/12/23 10:36:00) ADL Index Score: 11 (05/12/23 10:36:00) Capable of Handling Finances: Independent (05/12/23 10:36:00) Capable of Housekeeping: Requires assistance (05/12/23 10:36:00) Capable of Managing Medications: Independent (05/12/23 10:36:00) Capable of Shopping: Requires assistance (05/12/23 10:36:00) Capable of Walking: Requires assistance (05/12/23 10:36:00) ?? History of Fall in Last 3 Months Torres: Yes (05/12/23) Presence of Secondary Diagnosis Torres: No (05/12/23) Use of Ambulatory Aid Torres: Crutches, cane, walker (05/12/23) IV/Heparin Lock Fall Risk Torres: No (05/12/23) Gait Weak or Impaired Fall Risk Torres: Weak (05/12/23) Mental Status Fall Risk Torres: Oriented to own ability (05/12/23) Torres Fall Risk Score: 50 (05/12/23) Depression Screening Little Interest - Pleasure in Activities: Nearly every day (05/12/23 10:36:00) Feeling Down, Depressed, Hopeless: Not at all (05/12/23 10:36:00) Initial Depression Screen Score: 3 Score (05/12/23 10:36:00) Trouble Falling or Staying Asleep: Not at all (05/12/23 10:36:00) Feeling Tired or Little Energy: Nearly every day (05/12/23 10:36:00) Poor Appetite or Overeating: Several days (05/12/23 10:36:00) Feeling Bad About Yourself: Several days (05/12/23 10:36:00) Trouble Concentrating: Not at all (05/12/23 10:36:00) Moving or Speaking Slowly: Not at all (05/12/23 10:36:00) Thoughts Better Off or Hurting Self: Not at all (05/12/23 10:36:00) Detailed Depression Screen Score: 5 (05/12/23 10:36:00) Total Depression Screen Score: 8 (05/12/23 10:36:00) Falls Risk Assessment History of Fall in Last 3 Months Torres: Yes (05/12/23) Presence of Secondary Diagnosis Torres: No (05/12/23) Use of Ambulatory Aid Torres: Crutches, cane, walker (05/12/23) IV/Heparin Lock Fall Risk Torres: No (05/12/23) Gait Weak or Impaired Fall Risk Torres: Weak (05/12/23) Mental Status Fall Risk Torres: Oriented to own ability (05/12/23) Torres Fall Risk Score: 50 (05/12/23) Funtional Assessment Bathing ADL Index: Independent (2) (05/12/23 10:36:00) Dressing ADL Index: Requires assistance (1) (05/12/23 10:36:00) Toileting ADL Index: Independent (2) (05/12/23 10:36:00) Transferring Bed or Chair ADL Index: Independent (2) (05/12/23 10:36:00) Continence ADL Index: Independent (2) (05/12/23 10:36:00) Feeding ADL Index: Independent (2) (05/12/23 10:36:00) ADL Index Score: 11 (05/12/23 10:36:00) Capable of Handling Finances: Independent (05/12/23 10:36:00) Capable of Housekeeping: Requires assistance (05/12/23 10:36:00) Capable of Managing Medications: Independent (05/12/23 10:36:00) Capable of Shopping: Requires assistance (05/12/23 10:36:00) Capable of Walking: Requires assistance (05/12/23 10:36:00) Assessment/Plan 1.??Dependence on peritoneal dialysis A: suboptimal. ??Patient is on continuous cyclic PD at home via functional PD catheter placed to abdomen. ??Currently prescribed for exchanges over 9 hours. ??Dialysis adequacy unknown as KT/V??and URR are not available for review. ??Patient has not missed treatments. ??TW currently 250 per patientand last post-dialysis weight 258??per patient. ??Reports peritoneal fluid is clear and pale yellow. PD catheter site appears unremarkable with clean dressing in place. ??Exhibits no symptoms on exam. ??[Does] make urine. ?? Patient alternates dialysate dextrose as needed to achieve euvolemia. ??Patient does report??some??mild??edema??in his??legs. ?? P: Continue peritoneal dialysis per current orders via nephrology and HD center. ??Educated patient regarding fluid and sodium restriction, dietary and medication compliance, and access care. ?? 2.??Anemia of chronic renal failure A: stable. ??Hgb 13, ferritin 571. ??No evidence of bleeding, bruising, dyspnea. Continues on anemia protocols per nephrology/dialysis center with CORRINE and IV iron.? P: Continue monthly labs and medication management per nephrology and dialysis center protocols.??Goal hgb 10-11. Educated patient regarding symptoms of anemia.? 3.??Patient immunocompromised A: stable. Patient is chronically immunocompromised due to ESRD and diabetes. ??Currently no signs or symptoms of infection. ??Current on influenza, pneumonia, and COVID-19 vaccines per CDC guidelines. ?? P: ??Educated patient regarding importance of infection control including handwashing, signs andsymptoms of infection, health promotion/disease prevention. Discussed importance of addressing any signs or symptoms of infection rapidly with medical attention. ??Continue per PCP and nephrology to nilson barba CDC recommended vaccine schedule. ?? 4.??Secondary hyperparathyroidism of renal origin A: stable. Phosphorus 4.3, PTH 453, calcium 8.7. Currently treated with calcium acetate as phosphorus binder. Reports compliance with medications and renal diet. ?? P: Continue monthly labs, medications, renal diet. Continue per nephrology and HD center mineralbone disease protocol. Follow up with dialysis center [facility] for ongoing dietary management. Educated patient regarding importance of low phosphorus diet and importance of normal phosphorus levels. ?? 5.??Obstructive sleep apnea A: ongoing. Follows pulmonology. ??Starts the evening out wearing his CPAP but often takes it off??midway through the night.?Patient reports following up with??pulmonology annually.?? Patient reports??daytime sleepiness. [Patient denies morning headache]. Patient's weight is stable. Patient sleeps with head of bed elevated. ?? P: Continue use of CPAP and management with pulmonology. Educated to clean CPAP apparatus. Encouraged weight loss. ?? 6.??Hypertensive renal failure A: ongoing. ??Patient reports higher blood pressures as of late??most recently blood pressure was 174/76. ??Patient did return to the transfer engineer 2 weeks ago and had some of his medications changed.??Patient monitors blood pressure daily. Patient has a history of long standing hypertension prior to initiation of dialysis with progression to secondary hypertension with contributing factors of diabetes and obesity. Denies any headaches or palpitations.? P: Recommended continued evaluation and management per Nephrology.?Educated patient to watch sodium and fluid intake closely. ?? 7.??Coronary artery disease A:??ongoing. ??Follows cardiology, every 6 months. ??Patient has a history of CAD documented placement of 4 cardiac stents. ??Currently treated with clopidogrel??and??ranolazine. ??Does currently report some anginal symptoms which he??reported to his transfer engineer who he saw 2 weeks ago.?? Changes were made to his hypertensive medications. ?? P: ??Continue medication and medical management per??cardiology. ??Educated patient regarding signs and symptoms of angina, appropriate action plan for acute symptoms, and reinforced medication compliance.? 8.??Gout A: stable. Followed by PCP every 6 months. ??Patient reports significant allergy to allopurinol andtherefore takes??colchicine??Monday.?Does report??joint discomfort but??no swelling or redness??currently.? P:??recommend discussing??colchicine with reading recovery teacher as typically this is a nephrotoxic??medication and is discontinued??once on dialysis. ??Patient??is allergic to allopurinol. PCP. Educated onmonitoring for signs and symptoms of gout flares. Educated to limit or avoid triggering foods including beer/alcohol, red meat, turkey, wild game, organ meats, seafood, and high fructose corn syrup. ?? 9.??Neuropathy A: ongoing. Related to diabetes??and ESRD. Follows PCP and podiatry.? Patient with altered sensation on plantar surfaces of bilateral feet and hands. ??Currently??not taking medication??for pain. ??Has had recent falls. ??Does not wear diabetic shoes.?? Does??complete daily foot checks. ?? P: recommend continued podiatry care.?? Recommend diabetic shoes. ??Recommend??PCP??offering pain medication should patient??have worsening of symptoms. ??Patient instructed on fall precautions, safety and daily foot checks.? 10.??Major depression, single episode A: not well managed. PHQ-9 score today 8. ??Patient is not on an antidepressant as he is resistant to adding a another medication to his current??medication regimen. ??Patient is not currently seeingbehavioral health counseling.? P: recommend patient follow-up with PCP for??antidepressant or referral to behavioral health counseling. Monitor for recurrence. ?? 11.??GERD - Gastro-esophageal reflux disease A: ongoing. ??Follows PCP every 6 months. Taking omeprazole and famotidine??for symptom management.??Patient denies heartburn, hoarseness, dry cough, sensation of lump in throat, or gas/belching. Patient avoids trigging foods. ?? P: recommend tapering either omeprazole or famotidine. ??Continue??management per PCP. Encouraged avoidance of triggers food. Encouraged smaller meals and sitting upright 30 minutes after eating. ?? 12.??Dyslipidemia A: poorly defined. ??Follows PCP and cardiology last seen 2 weeks ago. Current lipid panel not available for review. ??Currently taking Vascepa. ??Reports no myalgias. ??Goal LDL <100. ?? P: ??Continue medication and management per PCP with fasting lipids and liver function test every 6 months. Diet education provided to patient. ?? 13.??Arthritis A: ongoing. ??Patient??reports allover joint pain due to arthritis. ??Patient has been taking meloxicam and??for this pain but has recently stopped??taking it.?? Patient ambulates using a cane but does report that his knees??occasionally give out and he falls. ?? P:??recommend increased activity. ??Recommend physical therapy to increase??strength and endurance??and fall prevention. ?? 14.??Obesity A: ongoing. BMI 37. Patient does not participate in exercise. [Patient with limited mobility].?Patient reports significant arthritis??throughout. ?? P: Educated patient regarding heart healthy, renal diet. Encouraged meeting with RD at HD centerfor further follow up. Continue to monitor per PCP, nephrology/HD team. ?? Patient Information Name:ADELIA GARVIN Address: [address] [place] [address] [address] [place], [place] [id number] Sex:Male Date of :1970 Location:Video Visit - Home Primary Care Provider - DR. STEPHANIE CORREA Problem List/Past Medical History Ongoing Anemia of chronic renal failure Arthritis Coronary artery disease Dependence on peritoneal dialysis Diabetic retinopathy Dyslipidemia GERD - Gastro-esophageal reflux disease Gout Heart failure Heart failure with reduced ejection fraction History of non-ST segment elevation myocardial infarction Hypertensive renal failure Major depression, single episode Neuropathy Obesity Obstructive sleep apnea Patient immunocompromised Secondary hyperparathyroidism of renal origin Type 1 diabetes mellitus Historical No qualifying data Procedure/Surgical History ???Appendectomy???Arthroscopy of knee???Cardiac catheterization???Coronary artery stent???Excision of cataract???History of cholecystectomy???History of hernia repair???Insertion of peritoneal dialysis catheter???Reduction of fracture of femur with internal fixation Medications atorvastatin 80 mg oral tablet, 80 mg= 1 tab, Oral, Daily Basaglar KwikPen, Subcutaneous, Daily calcitriol 0.25 mcg oral capsule, 0.25 mcg= 1 cap, Oral, Daily calcium acetate 667 mg oral tablet, 2001 mg= 3 tab, Oral, TID clopidogrel 75 mg oral tablet, 75 mg= 1 tab, Oral, Daily colchicine 0.6 mg oral tablet, 0.6 mg= 1 tab, Oral, Daily docusate Eliquis 2.5 mg oral tablet, 2.5 mg= 1 tab, Oral, BID ezetimibe 10 mg oral tablet, 10 mg= 1 tab, Oral, Daily famotidine 20 mg oral tablet, 20 mg= 1 tab, Oral, BID furosemide 40 mg oral tablet, 40 mg= 1 tab, Oral, Daily furosemide 80 mg oral tablet, 80 mg= 1 tab, Oral, Daily insulin isophane (NPH), Subcutaneous, BID isosorbide mononitrate 30 mg oral tablet, extended release, 30 mg= 1 tab, Oral, every morning meloxicam 7.5 mg oral tablet, 7.5 mg= 1 tab, Oral, Daily,?Not taking metoprolol succinate 50 mg oral capsule, extended release, 50 mg= 1 cap, Oral, Daily NIFEdipine (Eqv-Procardia XL) 90 mg oral tablet, extended release, 90 mg= 1 tab, Oral, Daily NovoLOG, Subcutaneous, TID(AC) NovoLOG, Subcutaneous, TID(AC) omeprazole 20 mg oral delayed release capsule, 20 mg= 1 cap, Oral, Daily Potassium Chloride (Ktf-Oyzf-Ngy M20), 20 mEq, Oral, BID ranolazine 500 mg oral tablet, extended release, 500 mg= 1 tab, Oral, BID Vascepa 1 g oral capsule, 2 g= 2 cap, Oral, BID Vitamin D3 50,000 intl units (1250 mcg) oral capsule, 1250 mcg= 1 cap, Oral, every week Allergies Brilinta??(Eruption) allopurinol??(Other) iodinated radiocontrast dyes??(Eruption) Social History Alcohol Use: Never., 05/12/2023 Electronic Cigarette/Vaping Electronic Cigarette Use: Never., 05/12/2023 Employment/School Work/School Status: disability., 05/12/2023 Home/Environment Lives with Children. Living situation: Home with assistance., 05/12/2023 Substance Use Use: Current. Type: Marijuana., 05/12/2023 Tobacco Smoking tobacco use: Never (less than 100 in lifetime)., 05/12/2023 Family History Cancer: Mother. Heart disease: Father. Hypertension: Father. Immunizations Vaccine Date Status Commentspalivizumab 12/30/2019 Recorded Prevnar 13 palivizumab 08/2019 Recorded Pneumonia Health Maintenance Eye exam:??Every 3 months Dental:??Not for quite some time Podiatry: Routine Colonoscopy:??2 years ago Labs Last 12 Months Albumin Level: 3.9 g/dL (04/26/23 15:41:51) Calcium: 8.7 mg/dL (04/26/23 15:41:51) CO2: 33 mEq/L (04/26/23 15:41:51) Creatinine: 5.5 mg/dL (04/26/23 15:41:51) Ferritin: 571 ng/mL (04/26/23 15:41:51) Hgb: 13 g/dL (04/26/23 15:41:51) Parathyroid Hormone (PTH): 453 pg/mL (04/26/23 15:41:51) Phosphorus Level: 4.3 mg/dL (04/26/23 15:41:51) Potassium Level: 3.2 mEq/L (04/26/23 15:41:51) Patient Care team information Care Team Personnel Name: Leandro Reyes Position: External Provider - Col[employer] Member Role: Colorer Machine Address: Address: [address] [place], [place] [id number]- Name: Brian RN, Etta Position: Nurse - [facility] Member Role: Undraped Artist Model Name: [facility] Bianka Cavazos Position: External Provider - Clinic Member Role: Dialysis Center Address: Address: [address] [facility] [place] [address]- Name: DR. STEPHANIE CORREA Member Role: Primary Care Provider Address: Address: [address] [place] [id number] Care Team Related Persons Name: Lorne Ching Name: Og Ching
--- OUTSIDE RECORDS SUMMARY | 2024-09-07 18:54 | XMS_ITS | Continuity of Care Document ---
Author Organization [facility] Address [address] [place] [address]- Care Team Providers Care Drum Sander Offbearer Name Role Phone DR. STEPHANIE CORREA Primary Care Physician Encounter 07/27/23 - 09/04/23 [facility] [address] [place] [address]- Allergies, Adverse Reactions, Alerts Substance Reaction Severity Status allopurinol Other Severe Active iodinated radiocontrast dyes Unknown Eruption Unknown Active Brilinta Eruption Severe Active Immunizations Given [...] 0 Refill(s) Start Date: 05/12/23 Status: Ordered febuxostat 40 mg oral tablet 40 mg = 1 tab, Oral, Daily, 0 Refill(s) Start Date: 08/23/23 Status: Ordered furosemide 40 mg oral tablet 40 mg = 1 tab, Oral, Daily, 0 Refill(s) Start Date: 05/12/23 Status: Ordered furosemide 80 mg oral tablet 80 mg = 1 tab, Oral, Daily, 0 Refill(s) Start Date: 05/12/23 Status: Ordered gemfibrozil 600 mg oral tablet 600 mg = 1 tab, Oral, BID, 0 Refill(s) Start Date: 08/23/23 Status: Ordered insulin isophane (NPH) Subcutaneous, BID, if not on insulin pump, 0 Refill(s) Start Date: 05/12/23 Status: Ordered isosorbide mononitrate 30 mg oral tablet, extended release 30 mg = 1 tab, Oral, every morning, 0 Refill(s) Start Date: 05/12/23 Status: Ordered losartan 25 mg oral tablet 25 mg = 1 tab, Oral, Daily, 1/2 tablet once a day, 0 Refill(s) Start Date: 08/23/23 Status: Ordered metoprolol succinate 50 mg oral [...] Start Date: 05/12/23 Status: Ordered Potassium Chloride (Tls-Mkud-Njy M20) 20 mEq, Oral, BID, 0 Refill(s) Start Date: 05/12/23 Status: Ordered ranolazine 500 mg oral tablet, extended release 500 mg = 1 tab, Oral, BID, 0 Refill(s) Start Date: 05/12/23 Status: Ordered Restasis 0.05% ophthalmic emulsion 1 drops, every 12 hr, 0 Refill(s) Start Date: 08/23/23 Status: Ordered Vascepa 1 g oral capsule [...] Name: Leandro Reyes Position: External Provider - [employer] Dispatcher Member Role: [employer] Dispatcher Address: Address: [address] [place] [address]- Name: LUAN Torres Tammy Position: Nurse - [facility] Member Role: Toy Designer Name: [facility]Bianka Position: External Provider - Clinic Member Role: Dialysis Center Address: Address: [address] [place] [address]- Name: DR. STEPHANIE CORREA Member Role: Primary Care Provider Address: Address: [address] [place] [address] Care Team Related Persons Name: Lorne Ching Name: Og Ching
--- OUTSIDE RECORDS SUMMARY | 2024-09-07 18:54 | XMS_ITS | Encounter Summary ---
Author Organization [facility] Address [address] [place] [id number] Encounter Details Date Type Department Care Team Description 2024-08-28 Telephone [facility] [place] [address] Bambi Green The [facility] care team was unable to complete a Medication Reconciliation with the patient following discharge. ASSESSMENT No Information TREATMENT PLAN No Information
--- OUTSIDE RECORDS SUMMARY | 2024-09-07 18:54 | XMS_ITS | Continuity of Care Document ---
Author Organization Video Visit - Home Address [address] [place] [address]- Care Team Providers Care Agronomy Advisor Name Role Phone DR. STEPHANIE CORREA Primary Care Physician Encounter 08/23/23 - 08/26/23 Video Visit - Home [address] [place] [address]- Encounter Diagnosis Dependence on peritoneal dialysis(Discharge Diagnosis) - 08/24/23 Patient immunocompromised(Discharge Diagnosis) - 08/24/23 Secondary hyperparathyroidism of renal origin(Discharge Diagnosis) - 08/24/23 Anemia of chronic renal failure(Discharge Diagnosis) - 08/24/23 Type 1 diabetes mellitus(Discharge Diagnosis) - 08/24/23 Obesity(Discharge Diagnosis) - 08/24/23 Coronary artery disease(Discharge Diagnosis) - 08/24/23 Paroxysmal atrial fibrillation(Discharge Diagnosis) - 08/24/23 Heart failure with reduced ejection fraction(Discharge Diagnosis) - 08/24/23 Neuropathy(Discharge Diagnosis) - 08/24/23 Obstructive sleep apnea(Discharge Diagnosis) - 08/24/23 Hypertensive renal failure(Discharge Diagnosis) - 08/24/23 Gout(Discharge Diagnosis) - 08/24/23 GERD - Gastro-esophageal reflux disease(Discharge Diagnosis) - 08/24/23 Arthritis(Discharge Diagnosis) - 08/24/23 Dyslipidemia(Discharge Diagnosis) - 08/24/23 History of falling(Discharge Diagnosis) - 08/24/23 Patient's noncompliance with other medical treatment and regimen for other reason(Discharge Diagnosis) - 08/24/23 Diabetic retinopathy(Discharge Diagnosis) - 08/24/23 Other thrombophilia(Discharge Diagnosis) - 08/24/23 Angina pectoris, unspecified(Discharge Diagnosis) - 08/24/23 Discharge Disposition: Home or Self Care Attending Physician: Misael, MSN, HEALTH ASSESSMENT AND TREATMENT TEACHER, ACADEMY EDUCATION DIRECTOR-C, Ricarda Allergies, Adverse Reactions, Alerts Substance Reaction [...] Start Date: 05/12/23 Status: Ordered Potassium Chloride (Szy-Rhnp-Qrb M20) 20 mEq, Oral, BID, 0 Refill(s) [...] Effective Dates Health Status Clinical Service Informant Dependence on peritoneal dialysis Discharge Diagnosis 08/24/23 Obesity Discharge Diagnosis 08/24/23 Heart failure with reduced ejection fraction Discharge Diagnosis 08/24/23 Neuropathy Discharge Diagnosis 08/24/23 Hypertensive renal failure Discharge Diagnosis 08/24/23 Arthritis Discharge Diagnosis 08/24/23 Dyslipidemia Discharge Diagnosis 08/24/23 History of falling Discharge Diagnosis 08/24/23 Patient's noncompliance with other medical treatment and regimen for other reason Discharge Diagnosis 08/24/23 Patient immunocompromised Discharge Diagnosis 08/24/23 Secondary hyperparathyroidism of renal origin Discharge Diagnosis 08/24/23 Type 1 diabetes mellitus Discharge Diagnosis 08/24/23 Anemia of chronic renal failure Discharge Diagnosis 08/24/23 Coronary artery disease Discharge Diagnosis 08/24/23 Paroxysmal atrial fibrillation Discharge Diagnosis 08/24/23 Obstructive sleep apnea Discharge Diagnosis 08/24/23 Gout Discharge Diagnosis 08/24/23 GERD - Gastro-esophageal reflux disease Discharge Diagnosis 08/24/23 Diabetic retinopathy Discharge Diagnosis 08/24/23 Other thrombophilia Discharge Diagnosis 08/24/23 Angina pectoris, unspecified Discharge Diagnosis 08/24/23 Procedures Procedure Date Related Diagnosis Body Site [...] Range]: 1 Peripheral Pulse Rate [60-100 bpm] 78 bp m (08/24/23 2:04 PM) Blood Pressure [90-120/60-80 mmHg] 165/7 6mmHg *HI* (08/24/23 2:04 PM) Mean Arterial Pressure, Cuff [70-110 mmH g] 106 mmHg (08/24/23 2:04 PM) Social History Social History Type Response Smoking Status Never (less than 100 in lifetime) entered on: 05/12/23 Sex EVALUATION AND MANAGEMENT NOTE:FIND:PT:OUTPATIENT:DOC:{PROVIDER} * Parisskeshiaian, MSN, HEALTH ASSESSMENT AND TREATMENT TEACHER, ACADEMY EDUCATION DIRECTOR-C, Ricarda: PERFORM Event Display: General Clinic Note (Physician) Authored Date: [id number] Chief Complaint Comprehensive Health Evaluation for the re-evaluation of chronic conditions. History of Present Illness ADELIA GARVIN??is a??53 Years??old??White??Male??with??ESRD due to type 1 diabetes??and hypertension at??Dialysis Treatment Facility Name: [facility] (PD). ??Patient seen via telehealth at [home] with the provider at remote office. Consent was obtained for use of telehealth during this encounter. This visit was conducted using live two way audio and visual communication. Patient identity was verbally verified using full name and date of for the encounter. ?? Patient is well-groomed and very pleasant throughout this evaluation. ??Patient reports that he lives in a small house that he rents with his 18-year-old son.?Patient reports that he??ambulates with a cane secondary to knee pain. ??Occasionally he uses his walker if his knees are??particularly painful that day.?Patient reports that he??is able to drive but drives very very seldom.?Patient reports that his adult daughter is trained in PD however she does not live with him.?Patient isindependent??with ADLs??and medication management.?Patient's daughter??20 minutes away and is his PA multimedia production assistant.? Patient would like to be eligible for a??pancreas and kidney transplant.?? He has tried to be??on the transplant list with [facility] but was told that he was overweight and had to lose some weight.?? Patient reports??that he feels that the 20 pounds he was told to lose his unattainable for him.?? Patient was recently hospitalized??with RSV however is recovering.?? Patient denies other infections, falls or wounds. ?? A medication reconciliation was completed at today's visit. ?? This record has been created using [employer] voice recognition software. Errors have been sought and corrected, but may not always be located. Such creation errors do not reflect on standard of care. Review of Systems CONSTITUTIONAL:??No fever, chills, diaphoresis. ??No fatigue. ??No change in activity. ??No appetite changes. ??No unexpected weight change. ENT/MOUTH:??No congestion. ??No post nasal drip. ??No sinus pain. ??No nosebleeds. ??No earache. ??No hearing loss. ??No dysphagia. ??No sore throat. ??No hoarseness. ??No toothache. EYES: Occasional eye pain due to dryness.?? No discharge. ??No redness. ??No itching. ??No visual disturbances. ??No photophobia. ??No double vision. RESPIRATORY:??Mild shortness of breath and cough that is resolving??since having RSV.?? No sputum production. ??No wheezing. CARDIOVASCULAR:??Mild bilateral lower extremity edema.?? No chest pain. ??No palpitations. ??No orthopnea. GASTROINTESTINAL: Mild nausea??and??poor eating recently??because of poor taste in his mouth??whichshe has been told??is due to dialysis status.?? No vomiting. ??No diarrhea. ??No constipation. ??Noabdominal pain. ??No abdominal swelling. ??No rectal bleeding. GENITOURINARY:??Produces urine.?? No dysuria or pain. ??No hesitancy. ??No urgency. ENDOCRINE:??No temperature intolerance. ??No unusual hunger or thirst. ??No hair loss. ??Some dry skin. MUSCULOSKELETAL:??No cramping. ??No weakness. ??No myalgias. ??No claudication. ??Pain of both knees, cervical thoracic and lumbar back.?Antalgic gait requiring cane or walker.?? SKIN:??No rash. ??No color change. ??No wounds. ??No itching. IMMUNOLOGICAL:??No environmental allergies. ??Immunocompromised. NEUROLOGICAL:??No dizziness. ??No headaches. ??No syncope/near syncope. ??No seizures. ??No memory loss. ??No tremors. ??Numbness and tingling to both feet and right hand. HEMATOLOGIC/LYMPHATIC:??No unusual bleeding. ??Bruises easily. PSYCHIATRIC:??No confusion. ??No agitation. ??No depression. ??No anxiety. ??No insomnia. Physical Exam Vitals & Measurements HR:??78(Peripheral)?? BP:??165/76?? HT:??70??in?? WT:??261.000??lb?? WT:??261??lb?? BMI:??37.45?? Physical exam limited by telehealth visit. ?? [...] PSYCHIATRIC:??Appearance, behavior, speech and affect appropriate. FOOT: Not viewed due to??difficulty manipulating camera. ? Access:??PD catheter to abdomen.? Screenings ? Little Interest - Pleasure in Activities: Nearly every day (08/23/23 14:44:00) Feeling Down, Depressed, Hopeless: Several days (08/23/23 14:44:00) Initial Depression Screen Score: 4 Score (08/23/23 14:44:00) Trouble Falling or Staying Asleep: Not at all (08/23/23 14:44:00) Feeling Tired or Little Energy: Not at all (08/23/23 14:44:00) Poor Appetite or Overeating: Not at all (08/23/23 14:44:00) Feeling Bad About Yourself: Not at all (08/23/23 14:44:00) Trouble Concentrating: Not at all (08/23/23 14:44:00) Moving or Speaking Slowly: Not at all (08/23/23 14:44:00) Thoughts Better Off or Hurting Self: Not at all (08/23/23 14:44:00) Detailed Depression Screen Score: 0 (08/23/23 14:44:00) Total Depression Screen Score: 4 (08/23/23 14:44:00) ?? Bathing ADL Index: Requires assistance (1) (08/23/23 14:44:00) Dressing ADL Index: Requires assistance (1) (08/23/23 14:44:00) Toileting ADL Index: Independent (2) (08/23/23 14:44:00) Transferring Bed or Chair ADL Index: Independent (2) (08/23/23 14:44:00) Continence ADL Index: Independent (2) (08/23/23 14:44:00) Feeding ADL Index: Independent (2) (08/23/23 14:44:00) ADL Index Score: 10 (08/23/23 14:44:00) Capable of Handling Finances: Independent (08/23/23 14:44:00) Capable of Housekeeping: Requires assistance (08/23/23 14:44:00) Capable of Managing Medications: Independent (08/23/23 14:44:00) Capable of Shopping: Requires assistance (08/23/23 14:44:00) Capable of Walking: Requires assistance (08/23/23 14:44:00) ?? History of Fall in Last 3 Months Torres: Yes (08/23/23) Presence of Secondary Diagnosis Torres: Yes (08/23/23) Use of Ambulatory Aid Torres: Crutches, cane, walker (08/23/23) IV/Heparin Lock Fall Risk Torres: No (08/23/23) Gait Weak or Impaired Fall Risk Torres: Weak (08/23/23) Mental Status Fall Risk Torres: Oriented to own ability (08/23/23) Torres Fall Risk Score: 65 (08/23/23) Depression Screening Little Interest - Pleasure in Activities: Nearly every day (08/23/23 14:44:00) Feeling Down, Depressed, Hopeless: Several days (08/23/23 14:44:00) Initial Depression Screen Score: 4 Score (08/23/23 14:44:00) Trouble Falling or Staying Asleep: Not at all (08/23/23 14:44:00) Feeling Tired or Little Energy: Not at all (08/23/23 14:44:00) Poor Appetite or Overeating: Not at all (08/23/23 14:44:00) Feeling Bad About Yourself: Not at all (08/23/23 14:44:00) Trouble Concentrating: Not at all (08/23/23 14:44:00) Moving or Speaking Slowly: Not at all (08/23/23 14:44:00) Thoughts Better Off or Hurting Self: Not at all (08/23/23 14:44:00) Detailed Depression Screen Score: 0 (08/23/23 14:44:00) Total Depression Screen Score: 4 (08/23/23 14:44:00) Falls Risk Assessment History of Fall in Last 3 Months Torres: Yes (08/23/23) Presence of Secondary Diagnosis Torres: Yes (08/23/23) Use of Ambulatory Aid Torres: Crutches, cane, walker (08/23/23) IV/Heparin Lock Fall Risk Torres: No (08/23/23) Gait Weak or Impaired Fall Risk Torres: Weak (08/23/23) Mental Status Fall Risk Torres: Oriented to own ability (08/23/23) Torres Fall Risk Score: 65 (08/23/23) Funtional Assessment Bathing ADL Index: Requires assistance (1) (08/23/23 14:44:00) Dressing ADL Index: Requires assistance (1) (08/23/23 14:44:00) Toileting ADL Index: Independent (2) (08/23/23 14:44:00) Transferring Bed or Chair ADL Index: Independent (2) (08/23/23 14:44:00) Continence ADL Index: Independent (2) (08/23/23 14:44:00) Feeding ADL Index: Independent (2) (08/23/23 14:44:00) ADL Index Score: 10 (08/23/23 14:44:00) Capable of Handling Finances: Independent (08/23/23 14:44:00) Capable of Housekeeping: Requires assistance (08/23/23 14:44:00) Capable of Managing Medications: Independent (08/23/23 14:44:00) Capable of Shopping: Requires assistance (08/23/23 14:44:00) Capable of Walking: Requires assistance (08/23/23 14:44:00) Assessment/Plan 1.??Dependence on peritoneal dialysis A: suboptimal. ??Patient is on continuous cyclic PD at home via functional PD catheter placed to abdomen. ??Currently prescribed for exchanges over 9 hours. ?Patient has not missed treatments. ??Patient however is not checking daily blood pressures and isnot checking daily weights.?Does report some difficulty with the cycler having alarms at night.?Reports peritoneal fluid is clear and pale yellow. PD catheter site appears unremarkable with clean dressing in place. ??Exhibits no symptoms on exam. ??[Does] make urine. ?? Patient alternates dialysate dextrose as needed to achieve euvolemia. ??Reports??recent mild??nausea??and poor appetite??because of poor taste in his mouth. ??Patient reports that he has been told this is a??side effect ofdialysis for some individuals. ?? P:??encouraged??patient to??start??monitoring blood pressures daily and weights daily and keeping it in his peritoneal dialysis log. ??Patient reports that after his recent hospitalization with R??SV??he was too ill??to carry out his PD by himself. ??Patient's daughter is trained??however does not live with him and therefore was not able to assist several nights. ??Recommend??training the patient 18-year-old live-in son to assist with PD when patient is??in need of??assistance. ??Continue peritoneal dialysis per current orders via nephrology and HD center. ??Educated patient regarding fluid and sodium restriction, dietary and medication compliance, and access care. ?? 2.??Patient immunocompromised A: stable. Patient is chronically immunocompromised due to ESRD and type 1 diabetes and obesity. ??Currently no signs or symptoms of infection. ??Current on influenza, pneumonia, and COVID-19 vaccines per CDC guidelines. ?? P: ??Educated patient regarding importance of infection control including handwashing, signs andsymptoms of infection, health promotion/disease prevention. Discussed importance of addressing any signs or symptoms of infection rapidly with medical attention. ??Continue per PCP and nephrology to nilson barba CDC recommended vaccine schedule. ?? 3.??Secondary hyperparathyroidism of renal origin A: stable. Phosphorus 5.6, PTH 6296, calcium 9. Currently treated with calcium acetate as phosphorus binder??however reports that he is currently out??and needs a refill. Reports compliance with medications and renal diet. ?? P: Continue monthly labs, medications, renal diet. Continue per nephrology and HD center mineralbone disease protocol. Follow up with dialysis center Business Applications Specialist for ongoing dietary management. Educated patient regarding importance of low phosphorus diet and importance of normal phosphorus levels. ?? 4.??Anemia of chronic renal failure A: stable. ??Hgb 12.7, ferritin 708. ??No evidence of bleeding, bruising, dyspnea. Continues on anemia protocols per nephrology/dialysis center with CORRINE and IV iron.? P: Continue monthly labs and medication management per nephrology and dialysis center protocols.??Goal hgb 10-11. Educated patient regarding symptoms of anemia.? 5.??Type 1 diabetes mellitus A: suboptimal. A1C unavailable for review. ??Follows endocrinology for diabetes management every 3 months. ??Patient has had??hyperglycemia??which he states is a result of his pump??and glucose monitor not communicating.? Reports??fair compliance with diet. ??Reports??history of neuropathy [to hands/feet]. ??[No recent falls]. ??Does not currently see podiatry for nail care. ??Does not wear diabetic shoes. [Does] go for annual diabetic eye exam. ??Occasionally??does foot checks. ?? P: Monitor A1C every 3 months. ??Goal A1C 7-8.5%.?? Recommend resolving the issue of his pump and??continuous glucose monitor not communicating rapidly. ??Patient??has a history of hyperglycemia. ??Patient with neuropathy and retinopathy which requires tight glycemic control. ??Continue per endocrinology for medication management. ??Educated patient regarding signs/symptoms suggestive of hypo and hyperglycemia, diabetic foot care including daily foot checks, self-monitoring of blood sugars, medication compliance and fall precautions. ??Follow up with RD at dialysis center for diabetic dieteducation. ?? 6.??Obesity A: not improving. BMI 37. Patient does not participate in exercise.?? Patient with limited mobility.?Patient reports that he was told he needed to lose 20 pounds??to be eligible for transplant butpatient thinks??that??losing 20 pounds is unattainable for him. ?? P: Educated patient regarding heart healthy, renal diet. Encouraged meeting with RD at HD centerfor further follow up. Continue to monitor per PCP, nephrology/HD team. ?? 7.??Coronary artery disease A:??stable. ??Follows cardiology,??twice a year with his next visit scheduled in September. ??Patient has a history of CAD documented??by multiple cardiac catheterizations??from 2016,??2019, 2020 and 2022 with multiple stents placed.?Currently treated with atorvastatin, clopidogrel,??ezetimibe ,??gemfibrozil,??and??ranolazine. ??Reports no symptoms of anginal symptoms. ? P: ??Continue medication and medical management per PCP and cardiology. ??Educated patient regarding signs and symptoms of angina, appropriate action plan for acute symptoms, and reinforced medication compliance.? 8.??Paroxysmal atrial fibrillation A: stable. Followed by cardiology twice a year with his next visit scheduled in September. ??Diagnosis noted discharge summary from??07/25/2023. ??Rate controlled with metoprolol (administered post dialysis on dialysis days).? Patient taking anticoagulant Eliquis 2.5 mg twice daily for stroke prevention. Denies palpitations, tachycardia, chest pain, fatigue, weakness, dizziness or dyspnea ?? P: Continue current medications and management as prescribed by brick off bearer. Education providedregarding importance of medication compliance, anti-coagulant use, safety and action plan for acutesymptoms to include signs/symptoms of bleeding. ?? 9.??Heart failure with reduced ejection fraction A:??Stable.?? Follows cardiology with next appointment in September. ??Acute on chronic??heart failure??with reduced ejection fraction stated in??office note from 02/10/2023.?? Echo is not available for review but office note sites??the following:??C/B??cardiogenic shock requiring Impella in the setting of cath and??8HRF2/2 pulmonary edema??now resolved.?? EF??65% with grade 1 diastolic dysfunction.?? Tolerating losartan, metoprolol??and furosemide.?? Patient does report having some bilateral lower extremity edema. ??Not able to visualize on video.?? Denies chest pain??and shortness of breath. ?? P:??Continue medication and management per cardiology. ?? 10.??Neuropathy A: suboptimal. Related to type 1 diabetes, ESRD. Follows PCP but had??been seeing podiatry in the past.?? Has not seen podiatry for about 6 months.??Patient with altered sensation on plantar surfacesof bilateral feet,??and right hand. Currently??not taking medication??for pain. ??No recent falls.?? Does not wear diabetic shoes. ??Occasionally completes foot checks. ?? P: Continue medication and management per??PCP. ??Recommend providing patient??with a list of providers in network and in his??neighborhood??so that he can reestablish care. ??Patient instructed on fall precautions, safety and daily foot checks.? 11.??Obstructive sleep apnea A: suboptimal. Follows PCP. ??Inconsistently CPAP at night.?? Patient reports??no??excessive daytime sleepiness, falling asleep while driving or during conversation. ??Patient reports occasional morning headache. Patient's weight is stable. ?? P:??recommend increased use of CPAP and management with??PCP. Educated to clean CPAP apparatus. Encouraged weight loss. ?? 12.??Hypertensive renal failure A: investigating. ??Patient reports??not taking daily blood pressures??prior to or after??daily??PDtreatments. ??Patient does report having elevated blood pressures as of recently.?? Patient currently tolerating??furosemide, isosorbide mononitrate,??losartan, metoprolol and??nifedipine. Patient has a history of long standing hypertension prior to initiation of dialysis with progression to secondary hypertension with contributing factors of type 1 diabetes and obesity. Denies any headaches or palpitations.? P: recommend obtaining a blood pressure log. ??Recommend continued evaluation and management perNephrology.? 13.??Gout A: stable. Followed by PCP every 3 months. ??Not able to take allopurinol because of acute kidney injury therefore taking??colchicine Monday??and??febuxostat??daily. Denies any recent flares. Reports no joint discomfort, redness or swelling. ?? P: recommend talking to PCP??to determine if colchicine can be discontinued as it is not recommended for??daily intake on dialysis patients. Educated on monitoring for signs and symptoms of gout flares. Educated to limit or avoid triggering foods including beer/alcohol, red meat, turkey, wild game, organ meats, seafood, and high fructose corn syrup. ?? 14.??GERD - Gastro-esophageal reflux disease A: stable. ??Follows PCP every 3 months. Taking omeprazole and famotidine??for symptom management. ??Patient denies heartburn, hoarseness, dry cough, sensation of lump in throat, or gas/belching. Patient avoids trigging foods. ?? P: recommend talking to??PCP about??taking both famotidine??and omeprazole at the same time. ??Encouraged avoidance of triggers food. Encouraged smaller meals and sitting upright 30 minutes after eating. ?? 15.??Arthritis A: not well-managed. ??Followed by PCP. ??Reports pain in bilateral knees,??cervical thoracic and lumbar back. ??Not taking medications for pain relief.?? Not getting exercise. ?? P:??recommend referral for physical therapy for strengthening and endurance to??off set??pressure placed on joints. ??Recommend referral to pain management for pain control.?Recommend increaseddaily activity level.? 16.??Dyslipidemia A: investigating. ??Follows PCP and cardiology. Current lipid panel not available for review. ??Currently taking atorvastatin,??ezetimibe, Vascepa??and??gemfibrozil. ??Reports no myalgias. ??Goal LDL<100. ?? P: recommend??obtaining??fasting labs??with lipid panel. ??Continue medication and management per PCP with fasting lipids and liver function test every 6 months. Diet education provided to patient. ?? 17.??History of falling A: suboptimal. ??Patient reports falling back into his recliner on several occasions when too weak to stand??but has not hit the floor. High risk for falls due to multiple med side effects, impaired gait, use of assistive device. Torres fall risk score is 65.?? Patient does not have??grab bars??in the bathroom. ?? P: Fall precautions reviewed with patient. Rise slowly from sitting or lying position. ??Educated to walk and get daily activity for increased stamina and strength. Educated on trip hazards such as rugs in the house, use of night light in bedroom. Follow up with PCP for evaluation. Continue ambulation with the assistance of a walker/assistive device.?? Recommend home evaluation??for??fall riskprevention. ??Also recommend??physical therapy for increased standing and ambulatory tolerance. ?? 18.??Patient's noncompliance with other medical treatment and regimen for other reason A: ongoing. ??Patient reports??that he is not doing daily weights or [facility] ??Patient also reports that he is out of several medications??and needs to get refills.?? Patient is aware of consequences.?? Patient has necessary supplies for??daily weights and blood pressures and does have a log to record this information in. ??Patient reports that he has just been lazy and not doing it.?? Patient with??bilateral lower extremity mild edema.?? Patient's phosphorus recently slightly elevated than previous??recordings??due to the fact that he is currently out ofhis phosphorus binder and has not had it refilled.?? Patient with obstructive sleep apnea and inconsistently uses the CPAP machine ?? P:??encouraged patient to??make a routine that includes daily blood pressures and weights in order to have adequate??dialysis and prevent additional edema from forming.?? Encouraged patient??to stay on top of ordering??medications when low and not out.?? Encouraged patient to use weekly??pill organizer so that he has advanced notice??if he is running low.?? Encouraged daily use of CPAP machine. ?? 19.??Diabetic retinopathy A:??stable. ??Patient follows ophthalmology every 3 months.?? Patient does report occasional eye pain due to dry eyes for which she uses Restasis.?? Denies any changes to vision??or visual field. ?? P: recommend tight glycemic control??and??good blood pressure control. ??Continue??with ophthalmology management. ?? 20.??Other thrombophilia A: Patient with??chronic??right popliteal DVT??as stated in??HPI dated 07/25/2023.?? Patient on??long-term anticoagulation.?? Patient??also with paroxysmal atrial fibrillation??for which she follows??cardiology.?? Tolerating Eliquis daily.?? Denies signs and symptoms of bleeding. ?? P:??Recommend continued medication and management??per cardiology.?? Patient educated??on signs and symptoms??of bleeding.?? Also educated on fall prevention. ?? 21.??Angina pectoris, unspecified A:??Stable.?? Patient follows cardiology twice a year with next??visit in September.?? Patient tolerating??ranolazine.?? Denies chest pain.?? Patient??has undergone??cardiac catheterization??on 2017, 2019, 2020??and most recently 2022. ??Patient with multiple stents.?? Patient with past CT. ?? P:??recommend continued medication and management per cardiology. ?? Patient Information Name:ADELIA GARVIN Address: [address] [place] [address] [address] [place], [place] [id number] Sex:Male Date of :1970 Location:Video Visit - Home Primary Care Provider - DR. 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 Coronary artery disease Dependence on peritoneal dialysis Diabetic retinopathy Dyslipidemia End stage renal disease GERD - Gastro-esophageal reflux disease Gout Heart failure Heart failure with reduced ejection fraction History of falling Hypertensive renal failure Neuropathy Obesity Obstructive sleep apnea Other thrombophilia Paroxysmal atrial fibrillation Patient immunocompromised Patient's noncompliance with other medical treatment and regimen for other reason Secondary hyperparathyroidism of renal origin Type 1 diabetes mellitus Historical History of non-ST segment elevation myocardial infarction Non-ST elevation (NSTEMI) myocardial infarction Procedure/Surgical History ???Appendectomy???Arthroscopy of knee???Cardiac catheterization???Coronary artery stent???Excision of cataract???History of cholecystectomy???History of hernia repair???Insertion of peritoneal dialysis catheter???Reduction of fracture of femur with internal fixation Medications atorvastatin 80 mg oral tablet, 80 mg= 1 tab, Oral, Daily Basaglar KwikPen, Subcutaneous, Daily,?Not taking calcitriol 0.25 mcg oral capsule, 0.25 mcg= 1 cap, Oral, Daily calcium acetate 667 mg oral tablet, 2001 mg= 3 tab, Oral, TID clopidogrel 75 mg oral tablet, 75 mg= 1 tab, Oral, Daily colchicine 0.6 mg oral tablet, 0.6 mg= 1 tab, Oral, Daily docusate,?Not taking Eliquis 2.5 mg oral tablet, 2.5 mg= 1 tab, Oral, BID ezetimibe 10 mg oral tablet, 10 mg= 1 tab, Oral, Daily famotidine 20 mg oral tablet, 20 mg= 1 tab, Oral, BID febuxostat 40 mg oral tablet, 40 mg= 1 tab, Oral, Daily,?Not taking: needs to talk to furosemide 40 mg oral tablet, 40 mg= 1 tab, Oral, Daily furosemide 80 mg oral tablet, 80 mg= 1 tab, Oral, Daily gemfibrozil 600 mg oral tablet, 600 mg= 1 tab, Oral, BID insulin isophane (NPH), Subcutaneous, BID,?Not taking isosorbide mononitrate 30 mg oral tablet, extended release, 30 mg= 1 tab, Oral, every morning losartan 25 mg oral tablet, 25 mg= 1 tab, Oral, Daily metoprolol succinate 50 mg oral capsule, extended release, 50 mg= 1 cap, Oral, Daily NIFEdipine (Eqv-Procardia XL) 90 mg oral tablet, extended release, 90 mg= 1 tab, Oral, Daily NovoLOG, Subcutaneous, TID(AC),?Not taking NovoLOG, Subcutaneous, TID(AC) omeprazole 20 mg oral delayed release capsule, 20 mg= 1 cap, Oral, Daily Potassium Chloride (Cmn-Wlee-Ela M20), 20 mEq, Oral, BID ranolazine 500 mg oral tablet, extended release, 500 mg= 1 tab, Oral, BID Restasis 0.05% ophthalmic emulsion, 1 drops, every 12 hr Vascepa 1 g oral capsule, 2 g= 2 cap, Oral, BID Vitamin D3 50,000 intl units (1250 mcg) oral capsule, 1250 mcg= 1 cap, Oral, every week Allergies Brilinta??(Eruption) allopurinol??(Other) iodinated radiocontrast dyes??(Unknown, Eruption) Social History Alcohol Use: Never., 05/12/2023 Electronic [...] 13 palivizumab 08/2019 Recorded Pneumonia Health Maintenance Colonoscopy:??Within the past 5 years Retinal exam:??Every 3 months Foot exam/podiatry:??Was seeing podiatry however has not for about 6 months due to his??provider moving. Dental exam:??Unable to find a provider on his insurance within his neighborhood ?? Lab Results Albumin Level: 4 g/dL (08/01/23 16:07:22) Calcium: 9 mg/dL (08/01/23 16:07:22) CO2: 29 mEq/L (08/01/23 16:07:22) Creatinine: 5.9 mg/dL (08/01/23 16:07:22) Ferritin: 708 ng/mL (07/21/23 16:38:05) Hgb: 12.7 g/dL (08/01/23 16:07:22) Parathyroid Hormone (PTH): 296 pg/mL (07/21/23 16:38:05) Phosphorus Level: 5.6 mg/dL (08/01/23 16:07:22) Potassium Level: 3.6 mEq/L (08/01/23 16:07:22) Patient Care team information Care Team Personnel Name: Leandro eRyes Position: External Provider - Pipe Fitter Ammonia Member Role: Pipe Fitter Ammonia Address: Address: [address] [place] [id number]- Name: LUAN Torres Tammy Position: Nurse - [facility] Member Role: Assembler Mechanical Ordnance Name: [facility]Bianka Position: External Provider - Clinic Member Role: Dialysis Center Address: Address: [address] [place] [address]- Name: DR. STEPHANIE CORREA Member Role: Primary Care Provider Address: Address: [address] [place] [id number] Care Team Related Persons Name: Lorne Ching Name: Og Ching
--- OUTSIDE RECORDS SUMMARY | 2024-09-07 18:54 | XMS_ITS | Continuity of Care Document ---
Author Organization [facility] Care Coordina tion Address [address] [place] [address]- Care Team Providers Care Game And Fish Protector Name Role Phone DR. STEPHANIE CORREA Primary Care Physician Encounter 10/10/23 - 11/24/23 [facility] Care Coordination [address] [place] [address]- Allergies, Adverse Reactions, Alerts Substance Criticality Severity Reaction Reaction Severity Status allopurinol High criticality Severe Other A ctive iohexol Unable to assess criticality Unknown Active iodinated radiocontrast dyes Unable to assess criticality Unknown Unknown Eruption Active chlorhexidine containing compounds Unable to assess criticality Unknown Active ticagrelor Unable to assess criticality Unknown Active Brilinta High criticality Severe Eruption Act bianca Immunizations Given and Recorded Vaccine Date Status Refusal Reason palivizumab 1 12/30/19 Recorded palivizumab 2 08/21/19 Recorded 1Result Comment: Prevnar 13 2Result Comment: Pneumonia Medications atorvastatin 80 mg oral tablet 80 mg = 1 tab, Oral, Daily, 0 Refill(s) Start Date: 05/12/23 Status: Ordered Basaglar KwikPen Subcutaneous, Daily, if not on insulin pump, 0 Refill(s) Start Date: 05/12/23 Status: Ordered Basaglar KwikPen 100 units/mL subcutaneous solution 15 mL, 0 Refill(s) Start Date: 11/08/23 Status: Ordered calcitriol 0.25 mcg oral capsule [...] 0 Refill(s) Start Date: 05/12/23 Status: Ordered erythromycin 0.5% ophthalmic ointment 3 g, 0 Refill(s) Start Date: 11/08/23 Status: Ordered ezetimibe 10 mg oral tablet [...] 0 Refill(s) Start Date: 05/12/23 Status: Ordered Linzess 72 mcg oral capsule 90 cap, 0 Refill(s) Start Date: 11/08/23 Status: Ordered losartan 25 mg oral tablet 25 mg = 1 tab, Oral, Daily, 1/2 tablet once a day, 0 Refill(s) Start Date: 08/23/23 Status: Ordered meloxicam 7.5 mg oral tablet 90 tab, 0 Refill(s) Start Date: 11/08/23 Status: Ordered metoprolol tartrate 25 mg oral tablet 12.5 mg = 0.5 tab, Oral, BID, # 60 tab, 0 [...] 0 Refill(s) Start Date: 08/23/23 Status: Ordered torsemide 100 mg oral tablet 100 mg = 1 tab, Oral, Daily, # 30 tab, 0 Refill(s) Start Date: 11/08/23 Status: Ordered Vascepa 1 g oral capsule [...] Care team information Care Team Personnel Name: Eric Reeves Position: External Provider - Manager Market Development Member Role: Manager Market Development Address: Address: [address] [place] [address]- Name: LUAN Luevano Christine Position: Nurse - [facility] Member Role: Metal Mold Dresser Name: [facility] Bianka Cavazos Position: External Provider - Clinic Member Role: Dialysis Center Address: Address: [address] [place] [address]- Name: DR. STEPHANIE CORREA Member Role: Primary Care Provider Address: Address: [address] [place] [phone] Care Team Related Persons Name: Lorne Ching Name: Og Ching
--- OUTSIDE RECORDS SUMMARY | 2024-09-07 18:54 | XMS_ITS | Continuity of Care Document ---
Author Organization [facility] Care Coordina tion Address [address] [place] [address]- Care Team Providers Care Concrete Mixing Plant Laborer Name Role Phone DR. STEPHANIE CORREA Primary Care Physician [phone] Encounter 04/10/23 - 05/01/24 [facility] Care Coordination [address] [place] [address]- Allergies, Adverse Reactions, Alerts Substance Criticality Severity [...] Name: Leandro Reyes Position: External Provider - Insecticide Supervisor Member Role: Insecticide Supervisor Address: Address: [address] [place] [address]- Name: LUAN Luevano Christine Position: Nurse - [facility] Member Role: V Belt Coverer Name: [facility]Bianka Position: External Provider - Clinic Member Role: Dialysis Center Address: Address: [address] [place] [address]- Name: DR. STEPHANIE CORREA Member Role: Primary Care Provider Address: Address: [address] [place] [address] Care Team Related Persons Name: Lorne Ching Name: Og Ching
--- OUTSIDE RECORDS SUMMARY | 2024-09-07 18:55 | XMS_ITS | Continuity of Care Document ---
Author Organization [place] - [facility], [facility] Family [facility] Address [address] [place] [address] Care Team Providers Care Freight Solicitor Name Role Phone ADITYA CASTRO Primary Care Provider [phone] ADITYA CASTRO Referring Provider ADITYA CASTRO Primary Care Provider [phone] Assessment Encounter Date Assessment Date Assessment LastModified by Organization Details LastModified Time 08/27/2024 08/27/2024 54 yo M with - S/P HOSPITALIZATION - HEMATURIA, chronic - RT KIDNEY STONE - GALL STONES [...] imagines and further plan of care. Recent hospital records reviewed. Will refer pt to Pain clinic again. Educated pt about alarming symptoms to monitor [...] per schedule. Cont f/u with Endo at [place] as per schedule. Cont f/u with Spine as per schedule. Cont f/u with Rheumat at [facility] as per schedule. Cont f/u with Surg as per schedule. Cont f/u with Cardio at [facility] as per schedule. Cont f/u with Nephro at [facility] as per schedule. Cont f/u with Hemat at [place] as per schedule. Cont f/u with Ophthalmic Technologist as per schedule. Cont f/u with Ophtho at as per schedule. Cont f/u with Derm at [facility] as per schedule. Cont f/u with Dr. Langley (Hand surgeon) at as per schedule. Educated pt about alarming symptoms to monitor at home and call us back or get checked in ED. Pt had acute renal failure and was admitted hospital due to s/e from Allopurinol as per his Delivery Engineer. So pt can not take any Allopurinol [...] in 3-4 months. Annual labs in 05/15. [email or web address] Not available 08/27/2024 15:22:37 Plan of Treatment Reminders Order Date Submit Date Provider Last Modified By Organization Details Last Modified Time Details Appointments Follow Up 15 2024 10:00A Lisa Castro MD Not available Not available Not available Lab None recorde d. Referral pain managem ent referra l - Please call patient to lora cantu appoint ment. Thank you. 2024 025 [facility], [address], [place], [address], 08/28/2024 12:10:39 Procedures None recorde d. Surgeries None recorde d. Imaging None recorde d. Medication Orders colchic ine 0.6 mg tablet 2024 025 [facility] #[id number], [address] [facility] [facility], [place], [place], [id number], 08/27/2024 14:33:42 Uloric 40 mg tablet 2024 025 [facility] #57753, [address] [facility], [place], [place], [id number], 08/27/2024 15:24:16 Vascepa 1 gram capsule 2024 025 [facility] #90710, [address] [facility], [place], [place], [id number], 08/27/2024 15:24:17 tamsulo sin 0.4 mg capsule 2024 025 [facility] #94232, [address] [facility], [place], [place], [id number], 08/27/2024 14:30:45 ondanse ness HCl 4 mg tablet 2024 025 [facility] #96799, [address] [facility], [place], [place], [id number], 08/27/2024 14:31:17 ezetimi be 10 mg tablet 2024 025 [facility] #26624, [address] [facility], [place], [place], [id number], 08/27/2024 15:24:17 gemfibr ozil 600 mg tablet 2024 025 [facility] #85245, [address] [facility], [place], [place], [id number], 08/27/2024 15:24:15 famotid ine 40 mg tablet 2024 025 [facility] #53037, [address] [place], [place], [id number], 08/27/2024 14:33:43 Patient TargetsNo targets recorded. Patient Instructions Encounter Date Encounter Id Patient Instructions Last Modified By Organization Details Last Modified Time 08/27/2024 [id number] starting a weigh t loss plan: care instructions [email or web address] Not available 08/27/2024 14:30:39 Reason for Referral Pain Management Referral for Chronic back pain Please call patient to schedule an appointment. Thank you. Referring Physician: Aditya Castro, Family Medicine, Encounter Date: 08/27/2024 Results Created Date Observation Date Name Description Value Unit Range Abnormal Flag Note LastModifiedBy Organization Detail LastModifiedTime 08/11/20 24 08/11/2024 CT, abdom en + pelvi s, w/o contr ast No observ ation record ed. [email or web address] [address], [place], [address], 08/27/2024 14:24:26 09/06/19 25 09/06/2024 imagi ng/di agnos tic resul t No observ ation record ed. [address], [place], [address], 09/06/2024 12:57:47 Result Notes None recorded. 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 223767427 Active 2017 Not Available [facility] 3 01:10:47 Chronic back pain 090423956 Active 2022 Not Available [facility] 3 01:10:47 Hyperchol esterolem ia 39864622 Active 2017 Not Available [facility] 3 01:10:47 Seborrhei c dermatiti s of scalp 015587189 Active 2022 Not Available [facility] 3 01:10:47 Chronic physical disabilit y 050511762 Active 2018 Not Available [facility] 3 01:10:47 History of deep vein thrombosi s 786664512 Active 2017 Not Available [facility] 3 01:10:47 Heartburn 02347706 Active 2017 Not Available [facility] 3 01:10:47 Ultrasoun d scan abnormal 600711187 Active 2020 Not Available [facility] 3 01:10:47 Hypertrop hy of nasal turbinate s 72817934 Active 2021 Not Available [facility] 3 01:10:47 Sensorine ural hearing loss of bilateral ears 238282227 Active 2021 Not Available [facility] 3 01:10:47 Periphera l venous insuffici ency 36210787 Active 2020 Not Available [facility] 3 01:10:47 Myocardia l infarctio n 17700612 Completed 201705/08/2018 Not Available [facility] 3 01:10:48 Stable angina 931161180 Active 2017 Not Available [facility] 3 01:10:48 End stage renal failure on dialysis 535111486 Active 2019 Not Available [facility] 3 01:10:48 Degenerat ion of lumbar intervert ebral disc 77752203 Active 2018 Not Available [facility] 3 01:10:48 Gastroeso phageal reflux disease without esophagit is 488012294 Active 2017 Not Available [facility] 3 01:10:48 Anemia 568940337 Active 2017 Not Available [facility] 3 01:10:48 Chronic low back pain 258383566 Active 2018 Not Available [facility] 3 01:10:48 Pain in toe 257168540 Active 2018 Not Available [facility] 3 01:10:48 Pain in toe 514362244 Active 2018 Not Available [facility] 3 01:10:48 Right upper quadrant pain 125404777 Active 2020 Not Available [facility] 3 01:10:48 Type 2 diabetes mellitus without complicat ion 005971943 Completed 201701/10/2019 Not Available [facility] 3 01:10:48 Pain in left foot 37251165965 9107 Active 2019 Not Available [facility] 3 01:10:48 Vitamin D deficienc y 10992762 Active 2017 Not Available [facility] 3 01:10:49 Seasonal allergic rhinitis 575341885 Active 2017 Not Available [facility] 3 01:10:49 Sinusitis 86102862 Active 2021 Not Available [facility] 3 01:10:49 Hypertens bianca disorder 19421935 Active 2017 Not Available [facility] 3 01:10:49 Osteoarth ritis 249050767 Active 2019 Not Available [facility] 3 01:10:49 Umbilical hernia 863217950 Active 2018 Not Available [facility] 3 01:10:49 Vertigo 060377766 Active 2021 Not Available [facility] 3 01:10:49 Abrasion and/or friction burn of skin 836707544 Active 2018 Not Available [facility] 3 01:10:49 Chronic sinusitis 30872593 Active 2021 Not Available [facility] 3 01:10:49 Multiple benign melanocyt ic nevi 938076725 Active 2017 Not Available [facility] 3 01:10:50 Deep venous thrombosi s of lower extremity 009201066 Active 2022 Not Available [facility] 3 01:10:50 Dizziness 940934623 Active 2017 Not Available [facility] 3 01:10:50 Dysphagia 20905486 Active 2021 Not Available [facility] 3 01:10:50 Obesity 521831852 Active 2017 Not Available [facility] 3 01:10:50 Ketoacido sis due to type 1 diabetes mellitus 781718352 Active 2019 Not Available [facility] 3 01:10:50 Nausea 373941427 Active 2021 Not Available [facility] 3 01:10:50 Congestiv e heart failure 72360251 Active 2017 Not Available [facility] 3 01:10:50 Diabetic periphera l neuropath y 090190518 Active 2017 Not Available [facility] 3 01:10:51 Asymmetri nikos hearing loss 955532798 Active 2021 Not Available [facility] 3 01:10:51 Chronic kidney disease stage 4 825408530 Completed 201707/29/2020 Not Available [facility] 3 01:10:51 Chronic kidney disease stage 5 042174701 Active 2019 Not Available [facility] 3 01:10:51 Uncontrol led type 2 diabetes mellitus 637159760 Completed 201705/16/2019 Aditya Castro MD [address] [address], [place], [address] , [facility] 4 09:03:03 Gastritis 7103886 Active 2021 Not Available [facility] 3 01:10:51 End-stage renal disease 70654562 Active 2019 Not Available [facility] 3 01:10:51 Type 1 diabetes mellitus 19604330 Active 2018 Not Available [facility] 3 01:10:52 Atrial fibrillat ion 75952676 Active 2017 Not Available [facility] 3 01:10:52 Hyperlipi demia 18840063 Active 2017 Not Available [facility] 3 01:10:52 Heart disease 04984901 Active 2017 Not Available [facility] 3 01:10:52 Hyperpara thyroidis m 65310510 Active 2018 Not Available [facility] 3 01:10:52 Nasal congestio n 57657503 Active 2021 Not Available [facility] 3 01:10:52 Diabetes mellitus 86411855 Active 2017 Not Available [facility] 3 01:10:52 Obstructi ve sleep apnea syndrome 47381187 Active 2018 Not Available [facility] 3 01:10:53 Epigastri c pain 12733436 Active 2021 Not Available [facility] 3 01:10:53 Chronic idiopathi c constipat ion 77175867 Active 2020 Not Available [facility] 3 01:10:53 Corneal abrasion 70630591 Active 2018 Not Available [facility] 3 01:10:53 Dystrophi a unguium 25118446 Active 2018 Not Available [facility] 3 01:10:53 Gout 13630501 Active 2017 Not Available [facility] 3 01:10:53 Chronic renal failure 34627531 Completed 201705/08/2018 Not Available [facility] 3 01:10:54 Skin lesion 31037901 Active 2017 Not Available [facility] 3 01:10:54 Hypertrig lyceridem ia 740286508 Active 2022 Aditya Castro MD [address] [place] [address], [address] [address], [place], [address] , [facility] 3 16:04:08 Chronic constipat ion 842758596 Active 2022 Aditya Castro MD [address], [place], [address] , [facility] 3 16:45:46 Cough 20381487 Active 2022 Aditya Castro MD [address], [place], [address] , [facility] Who@ [facility] 3 12:45:44 Bronchiti s 68322629 Active 2022 Aditya Castro MD [address], [place], [address] , [facility] 3 09:22:50 Allergic rhinitis 19166662 Active 2022 Aditya Castro MD [address], [place], [address] , [facility] Who@ [facility] 3 09:28:39 Allergic contact dermatiti s 157268823 Active 2022 Aditya Castro MD [address], [place], [address] , [facility] 3 16:06:02 Tinea cruris 026310649 Active 2022 Aditya Castro MD [address], [place], [address] , [facility] 3 16:06:15 Acute bacterial sinusitis 28260727 Active 2023 KATIE Chen [address], [place], [address] , [facility] 4 09:55:25 Ulcer of mouth 01940235 Active 2023 Aditya Castro MD [address], [place], [address] , [facility] 4 09:03:52 Onychomyc osis of toenails 211834347 Active 2023 Chris Linda DPM [address], [place], [address] , [facility] Who@ [facility] [employer] [facility] 4 12:24:55 Folliculi tis 28438566 Active 2023 Aditya Castro MD [address], [place], [address] , [facility] Who@ [facility] [place] [facility] 4 10:26:36 Pain of right knee joint 99109331717 4100 Active 2023 Aditya Castro MD [address], [place], [address] , [facility] Who@ [facility] [employer] [facility] 4 10:31:07 Bleeding of ear canal 040033868 Active 2023 Aditya Castro MD [address], [place], [address] , [facility] Who@ [facility] [employer] [facility] 4 10:40:38 Acute left otitis media 565661415 Active 2023 Rohit Jessica MD [address], [place], [address] , [facility] Who@ [facility] [employer] [facility] 4 16:04:39 Thoracic back pain 429835818 Active 2023 Aditya Castro MD [address], [place], [address] , [facility] Who@ [facility] [place] [facility] 4 16:28:59 Pain of right shoulder blade 869049518 Active 2023 Aditya Castro MD [address], [place], [address] , [facility] Who@ [facility] [employer] [facility] 4 16:30:04 Degenerat ion of thoracolu mbar intervert ebral disc 23484865 Active 2023 Aditya Castro MD [address], [place], [address] , [facility] - [facility] 4 16:30:54 Hypothyro idism 28666696 Active 2023 Aditya Castro MD [address], [address], [place], [address] , [facility] 4 16:34:29 Uncontrol led type 2 diabetes mellitus 338664668 Active 2023 Aditya Castro MD [address], [address], [place], [address] , [facility] 4 09:03:03 Bilateral osteoarth ritis of knees 97356913818 9107 Active 2023 Sofia Newby null, [place] [facility] 4 11:42:16 Pain of left knee joint 36692039004 4107 Active 2023 LESLY Gambino [address], [address], [place], [address] , [facility] - [facility] 4 13:42:14 Pain in right hip joint 91449707557 9102 Active 2023 KELLE John, [place] - [facility] 4 11:11:43 Trochante margarita bursitis of right hip 52758632014 9100 Active 2023 LESLY Gambino [address], [address], [place], [address] , [facility] - [facility] 4 12:00:40 Gallstone 070016879 Active 2023 Aditya Castro MD [address], [address], [place], [address] , [facility] - [facility] 4 11:21:33 Right flank pain 470321540 Active 2023 Aditya Castro MD [address], [address], [place], [address] , [facility] - [facility] 4 11:29:38 Kidney stone 50814526 Active 2023 Aditya Castro MD [address], [address], [place], [address] , [facility] 11:31:01 Notes:blood clots, coronary artery disease, head trauma or injury, kidney disease, seizures, use of blood thinners, balance problems, numbness or tingling, loss of memory, swelling in legs, shortness of breath, muscle pain, back/neck pain, swollen or painful joints, excessive thirst, dry mouth, sleep apnea, wears glasses Some problems listed in Document: #[id number] could not be added to this patient's chart. Please review this document and add these problems to the patient's chart manually as needed. Problem Notes None recorded. Procedures Surgical History Date Name Laterality Status Provider Name and Address Organization Details Recorded Time 05/02/20 24 Nail Debridement completed Chris Linda DPM [address], [address], [place], [address], [facility] 05/20/2024 09:31:13 03/11/20 24 Nail Debridement completed Chris Linda DPM [address], [address], [place], [address], [facility] 03/11/2024 12:35:50 03/11/20 24 Wound Care-Podiatry completed Chris Linda DPM [address], [address], [place], [address], [facility] 03/11/2024 12:34:57 01/08/20 24 Wound Care-Podiatry completed Chris Linda DPM [address], [address], [place], [address], [facility] 01/08/2024 12:26:31 12/25/19 24 Medicare Wellness CPT Code, subsequent completed [address] [facility] 12/25/2023 15:24:37 11/06/19 24 Medicare Wellness CPT Code, subsequent cancelled LUAN [address] [facility] [employer] 11/03/2023 10:10:00 01/08/20 22 SEPTOPLASTY (SURG) completed Not Available [facility] 10/19/2022 01:16:48 01/22/20 21 Cardiac Cath completed Not Available [facility] 023 01:06:21 reduction of nasal turbinate completed Not Available [facility] 10/19/2022 01:06:21 procedure on heart completed KELLE John [facility] 05/10/2024 11:11:45 Imaging Results None recorded. Procedure Notes None recorded. Medical Equipment None Reported. Allergies Allergen ID Allergen Name Allergen Category Reaction Reaction Severity Criticality Documentation Date Start Date Code Code System Note Provider Name and Address Organization Details Recorded Time 1834 Iodinated contrast media (substanc e) medicatio n rash severe Not available 10/19/2022 78171 2004 SNOMED Not Available [facility] 3 01:16:23 1835 Brilinta medicatio n rash severe Not available 10/19/2022 15528 36 RxNorm Not Available [facility] 3 01:16:23 1836 allopurin ol medicatio n other severe Not available 10/19/2022 519 RxNorm Not Available [facility] 3 01:16:23 Medications Name Sig Start Date Stop Date Status Note LastModified by Organization Details LastModified Time cyclobenz aprine 10 mg tablet TAKE 1 TABLET BY MOUTH EVERY 12 HOURS NEEDED active Not Available Not Available No t Available furosemid e 40 mg tablet TK 1 T PO BID active Not Available Not Available No t Available atorvasta tin 40 mg tablet TAKE 2 TABLET BY MOUTH EVERY DAY AT BEDTIME active Not Available Not Available No t Available atorvasta tin 80 mg tablet Take 1 tablet every day by oral route at bedtime for 90 days. 2023 active Not Available Not Available Not Avai lable carvedilo l 25 mg tablet TK 1 T PO Q 12 H active Not Available Not Available No t Available clonidine HCl 0.1 mg tablet TAKE 1 TABLET BY MOUTH THREE TIMES PER DAY DIRECTED active Not Available Not Available No t Available prednison e 10 mg tablet Take 1 tablet every day by oral route as directed for 7 days. 08/27 completed Not Available Not Available Not Available doxycycli ne hyclate 100 mg capsule 04/24 completed Not Available Not Available Not Available atorvasta tin 20 mg tablet TAKE 1 TABLET BY MOUTH AT BEDTIME WITH 40MG TABLET TO EQUAL 60 MG DAILY active Not Available Not Available No t Available ketoconaz ole 2 % shampoo APPLY EXTERNAL LY 2 TO 3 TIMES EVERY WEEK NEEDED active Not Available Not Available No t Available tizanidin e 2 mg tablet active Not Available Not Available Not Available albuterol sulfate 2.5 mg/3 mL (0.083 %) solution for nebulizat ion USE 1 VIAL VIA NEBULIZE R EVERY 6 HOURS NEEDED FOR DYSPNEA 04/25 completed Not Available Not Available Not Available cetirizin e 10 mg tablet TAKE 1 TABLET BY MOUTH EVERY DAY NEEDED 2023 active Not Available Not Available Not Avai lable azithromy socorro 250 mg tablet TAKE 2 TABLETS (500 [...] completed Not Available Not Available Not Available metoprolo l tartrate 100 mg tablet TAKE 1 TABLET BY MOUTH EVERY 12 HOURS DIRECTED 07/13 completed Not Available Not Available Not Available amiodaron e 200 mg tablet 01/07 completed Not Available Not Available Not Available benzonata te 200 mg capsule TAKE 1 CAPSULE BY MOUTH EVERY 8 HOURS FOR 7 DAYS NEEDED 07/10 completed Not Available Not Available Not Available metoprolo l succinate ER 50 mg tablet,ex tended release [address] Shannon jamison Not Available Not Available Not Available ampicilli n 500 mg capsule TK ONE C PO TID 04/24 completed Not Available Not Available Not Available ranitidin e 300 mg tablet Take 1 tablet by mouth at bedtime 12/23 completed Not Available Not Available Not Available cephalexi n 250 mg capsule 01/07 completed Not Available Not Available Not Available hydrocodo ne 5 mg-acetam inophen 325 mg tablet 07/22 /2024 completed Not Available Not Available Not Available ondansetr on HCl 4 mg tablet Take 1 tablet every 6 hours by oral route as needed for 5 days. 2024 active Not Available Not Available Not Avai lable famotidin e 40 mg tablet TAKE 1 TABLET BY MOUTH EVERY DAY AT BEDTIME 2024 active Not Available Not Available Not Avai lable Medrol (Emanuel) 4 mg tablets in a dose pack Take 1 dose pk every day by oral route as directed for 6 days. 12/06 completed Not Available Not Available Not Available bupivacai ne HCl 0.5 % (5 mg/mL) injection solution Take 20 mg by injectio n route. 2023 active Not Available Not Available Not Avai lable prednison e 20 mg tablet 03/08 completed Not Available Not Available Not Available isosorbid e mononitra te ER 30 mg tablet,ex tended release 24 hr TAKE 1 TABLET BY MOUTH DAILY 12/06 completed Not Available Not Available Not Available doxycycli ne hyclate 50 mg capsule 03/08 completed Not [...] Not Available Not Available No t Available metolazon e 5 mg tablet 07/13 completed Not Available Not Available Not Available Lantus U-100 Insulin 100 unit/mL subcutane ous solution INJ 45 UNITS SC D IN THE BHUMIKA 05/08 completed Not Available Not Available Not Available phentermi ne 15 mg capsule Take 1 capsule every day by oral route before meals for 30 days. 03/18 completed Not Available Not Available Not Available amlodipin e 2.5 mg tablet TAKE 1 TABLET BY MOUTH EVERY MORNING active Not Available Not Available No t Available metronida zole 500 mg tablet 09/06 completed Not Available Not Available Not Available lidocaine HCl 2 % mucosal jelly Take 1 applicat ion twice a day by mucous route as needed for 30 days. 05/03 completed Not Available Not Available Not Available phentermi ne 37.5 mg tablet Take 1 tablet every other day by oral route before meals for 30 days. 09/04 completed 30 mins before breakfas t. Not Available Not Available Not Available clopidogr el 75 mg tablet TK 1 T PO D 12/06 completed Not Available Not Available Not Available amlodipin e 5 mg tablet 04/18 completed Not Available Not Available Not Available allopurin ol 100 mg tablet 04/24 completed Not Available Not Available Not Available valacyclo vir [address] Lewis prescrib es Not Available Not Available Not Available omeprazol e 40 mg capsule,d elayed release TAKE 1 CAPSULE BY MOUTH EVERY DAY IN THE MORNING 07/10 completed Not Available Not Available Not Available aspirin 81 mg tablet,de layed release Take 1 tablet every day by oral route after meals for 30 days. 09/06 completed Not Available Not Available Not Available tramadol 50 mg tablet Take 1 tablet every 8 hours by oral route as needed for 10 days. active Not Available Not Available No t Available phentermi ne 30 mg capsule Take 1 capsule every day by oral route before meals for 30 days. 08/08 completed 30 mins before breakfas t. Not Available Not Available Not Available ketorolac 30 mg/mL (1 mL) injection solution Inject 1 mL as needed by intramus cular route for 1 day. 05/07 completed Not Available Not Available Not Available simvastat in 40 mg tablet TK 1 T PO QPM 08/01 completed Not Available Not Available Not Available levothyro xine 25 mcg tablet Take 1 tablet every day by oral route in the morning for 90 days. active Endocrin ologist fills Not Available Not Available Not Available warfarin [address] Ortega prescrib es Not Available Not Available Not Available ketorolac 10 mg tablet Take 1 tablet every 8 hours by oral route as needed for 5 days. 08/27 completed Not Available Not Available Not Available ketorolac 0.5 % eye drops INT 1 GTT IN OD FOUR TIMES DAILY. START 3 DAYS B EYE SURGERY 08/01 completed Not Available Not Available Not Available prednison e 10 mg tablets in a dose pack Take 1 tab by mouth, 3 times a day for 3 daysTake 1 tab by mouth 2 times a day for 2 daysTake 1 tab by mouth once a day for 1 day 07/15 completed Not Available Not Available Not Available Flarex 0.1 % eye drops,[facility] 09/06 completed Not Available Not Available Not Available ciclopiro x 8 % topical solution APPLY TO THE AFFECTED AREA(S) toenails BY TOPICAL ROUTE ONCE DAILY PREFERAB LY AT BEDTIME OR 8 HOURS BEFORE WASHING 01/24 completed Not Available Not Available Not Available meloxicam 7.5 mg tablet TAKE 1 TABLET BY MOUTH EVERY DAY WITH FOOD NEEDED active Not Available Not Available No t Available oxycodone -acetamin ophen 5 mg-325 mg tablet 05/23 completed Not Available Not Available Not Available isosorbid e mononitra te ER 60 mg tablet,ex tended release 24 hr TK 1 T PO QAM active Not Available Not Available No t Available doxycycli ne monohydra te 50 mg capsule 09/06 completed Not Available Not Available Not Available clonidine HCl 0.2 mg tablet TAKE 1 TABLET BY MOUTH EVERY 8 HOURS active Not Available Not Available No t Available famotidin e 20 mg tablet 06/29 completed Not Available Not Available Not Available prednisol one acetate 1 % eye drops,[facility] [place] 03/08 completed Not Available Not Available Not Available torsemide 100 mg tablet Take 1 tablet every day by oral route as directed . [address] Eric jamison Not Available Not Available Not Available terazosin 2 mg capsule TK 1 C PO Q 12 H 07/13 completed Not Available Not Available Not Available tamsulosi n 0.4 mg capsule Take 1 capsule twice a day by oral route as directed for 30 days. 2024 active Not Available Not Available Not Avai lable furosemid e 80 mg tablet 09/06 completed Not Available Not Available Not Available Humalog U-100 Insulin 100 unit/mL subcutane ous solution active Not Available Not Available Not Available Kenalog 10 mg/mL suspensio n for injection Take 20 mg by injectio n route. 2023 active ND: [phone] Not Available Not Available Not Available nifedipin e ER 90 mg tablet,ex tended release 24 hr 01/07 completed Not Available Not Available Not Available meclizine 25 mg tablet TAKE 1 TABLET BY MOUTH EVERY 8 HOURS FOR 7 DAYS NEEDED active Not Available Not Available No t Available baclofen 10 mg tablet TAKE 1 TABLET BY MOUTH EVERY 8 HOURS NEEDED active Not Available Not Available No t Available amlodipin e 10 mg tablet active Not Available Not Available Not Available doxycycli ne monohydra te 100 mg capsule 08/01 completed Not Available Not Available Not Available gemfibroz il 600 mg tablet TAKE 1 TABLET BY MOUTH TWICE DAILY DIRECTED 2024 active Not Available Not Available Not Avai lable hydrocodo ne 7.5 mg-acetam inophen 325 mg tablet 02/14 completed Not Available Not Available Not Available cephalexi n 500 mg capsule 08/27 completed Not Available Not Available Not Available hydralazi ne 100 mg tablet TAKE 1 TABLET BY MOUTH EVERY 8 HOURS DIRECTED 07/13 completed Not Available Not Available Not Available erythromy socorro 5 mg/gram (0.5 %) eye ointment active Dr. Lewis prescrib es Not Available Not Available Not Available clotrimaz ole-betam ethasone 1 %-0.05 % topical cream APPLY TO THE AFFECTED AND SURROUND ING AREAS OF SKIN BY TOPICAL ROUTE 2 TIMES PER DAY IN THE MORNING AND EVENING FOR 2 WEEKS 12/06 completed Not Available Not Available Not Available warfarin 2 mg tablet 03/11 completed Not Available Not Available Not Available fluoromet holone 0.1 % eye drops,[employer] active Not Available Not Available Not Available lidocaine 5 % topical patch UNWRAP AND APPLY 1 PATCH TOPICALL Y TO THE SKIN EVERY DAY. MAY WEAR UP TO 12 HOURS 2023 active Not Available Not Available Not Avai lable losartan 25 mg tablet 12/06 completed Not Available Not Available Not Available FML Forte 0.25 % eye drops,[employer] active Not Available Not Available Not Available metoprolo l tartrate 50 mg tablet 09/12 completed Not Available Not Available Not Available nitroglyc ashley 0.4 mg sublingua l tablet DIS 1 T UNT Q 5 MIN PRF CP FOR UP TO 3 DOSES 05/07 completed Not Available Not Available Not Available docusate sodium 100 mg capsule Take 1 capsule twice a day by oral route as directed for 90 days. 07/13 completed Not Available Not Available Not Available omeprazol e 20 mg capsule,d elayed release TAKE 1 CAPSULE BY MOUTH EVERY DAY IN THE MORNING active Not Available Not Available No t Available gentamici n 0.1 % topical cream APPLY A SMALL AMOUNT TO THE AFFECTED AREA wounds of feet BY TOPICAL ROUTE 3 TIMES PER DAY active Not Available Not Available No t Available Procrit 20,000 unit/mL injection solution 05/16 completed Not Available Not Available Not Available insulin syringe U-100 with needle 1 mL 31 gauge x 16 08/01 completed Not Available Not Available Not Available allopurin ol 300 mg tablet Take 1 tablet every day by oral route as directed for 30 days. 2017 active Not Available Not Available Not Avai lable hydralazi ne 50 mg tablet active Not Available Not Available Not Available mupirocin 2 % topical ointment APPLY A SMALL AMOUNT TO THE AFFECTED AREA BY TOPICAL ROUTE 3 TIMES PER DAY 03/11 completed Not Available Not Available Not Available metoprolo l succinate ER 25 mg tablet,ex tended release 24 hr active Not Available Not Available Not Available ergocalci ferol (vitamin D2) 1,250 mcg (50,000 unit) capsule Take 1 capsule( s) every week by oral route for 90 days. 2023 active Not Available Not Available Not Avai lable Novolog U-100 Insulin aspart 100 unit/mL subcutane ous solution active Not Available Not Available Not Available cefuroxim e axetil 500 mg tablet 08/27 completed Not Available Not Available Not Available polyethyl cinthia glycol 3350 17 gram/dose oral powder Take 17 g every day by oral route as directed for 90 days. 07/13 completed Not Available Not Available Not Available levofloxa socorro 500 mg tablet 08/27 completed Not Available Not Available Not Available albuterol sulfate HFA 90 mcg/actua tion aerosol inhaler INHALE 2 PUFFS BY MOUTH EVERY 6 HOURS FOR 10 DAYS NEEDED active Not Available Not Available No t Available colchicin e 0.6 mg tablet TAKE 1 TABLET BY MOUTH 3 TIMES WEEKLY 2024 active Not Available Not Available Not Avai lable ketoconaz ole 2 % topical cream APPLY TO THE AFFECTED AREA(S) toenails BY TOPICAL ROUTE ONCE DAILY active Not Available Not Available No t Available ondansetr on 4 mg disintegr ating tablet Place 1 tablet every 6-8 hours by translin gual route as needed for 5 days. active Not Available Not Available No t Available cefdinir 300 mg capsule 04/24 completed Not Available Not Available Not Available losartan 100 mg tablet 10/11 completed Not Available Not Available Not Available fluticaso ne propionat e 50 mcg/actua tion nasal spray,[employer] SHAKE LIQUID AND USE 1 SPRAY IN EACH NOSTRIL EVERY DAY DIRECTED active Not Available Not Available No t Available calcitrio l 0.[address] Eric kirk es Not Available Not Available Not Available amoxicill in 875 mg-potass ium clavulana te 125 mg tablet Take 1 tablet twice a day by oral route as directed for 10 days. 12/24 completed Not Available Not Available Not Available amoxicill in 500 mg-potass ium clavulana te 125 mg tablet 03/11 completed Not Available Not Available Not Available oxycodone 5 mg tablet Take 1 tablet every 6 hours by oral route as needed for 5 days. 08/27 completed Not Available Not Available Not Available ezetimibe 10 mg tablet TAKE 1 TABLET BY MOUTH EVERY DAY DIRECTED 2024 active Not Available Not Available Not Avai lable Novolog FlexPen U-100 Insulin aspart 100 unit/mL (3 mL) subcutane ous 10/11 completed Not Available Not Available Not Available cyclobenz aprine 5 mg tablet 04/24 completed Not Available Not Available Not Available cyclospor ine 0.05 % eye drops in a dropperet te active Dr. Joshua kirk es Not Available Not Available Not Available OraMagicR x mouthwash Take 10 mL every 6 hours by mucous route as directed for 7 days. 05/07 completed Not Available Not Available Not Available moxifloxa socorro 0.5 % eye drops active Not Available Not Available No t Available ciproflox acin 0.3 %-dexamet hasone 0.1 % ear drops,[employer] pension INSTILL 4 DROPS INTO AFFECTED EAR(S) BY OTIC ROUTE 2 TIMES PER DAY FOR 7 DAYS 03/11 completed Not Available Not Available Not Available metoprolo l tartrate 25 mg tablet Take 1 tablet twice a day by oral route as directed for 90 days. 01/07 completed Not Available Not Available Not Available calcium acetate(p hosphate binders) [address] Eric jamison Not Available Not Available Not Available Byetta 5 mcg/dose (250 mcg/mL)1. 2 mL subcutane ous pen injector Take 5 mcg SubQ every 12 hrs as directed . active Not Available Not Available No t Available furosemid e twice daily 07/10 completed 120mg tabs Not Available Not Available Not Available ranolazin e ER 500 mg tablet,ex tended release,1 2 hr TK 1 T PO Q 12 H. 01/07 completed Not Available Not Available Not Available OneTouch Ultra2 Meter kit 04/25 completed Not Available Not Available Not Available BD Ultra-Fin e Original Pen Needle 29 gauge x 1/2 01/07 completed Not Available Not Available Not Available Humira Pen 40 mg/0.8 mL subcutane ous kit 04/24 completed Not Available Not Available Not Available cholecalc iferol (vitamin D3) 1,250 mcg (50,000 unit) capsule Take 1 capsule every week by oral route as directed . 01/07 completed Not Available Not Available Not Available ferrous sulfate 324 mg (65 mg iron) tablet,de layed release TAKE 1 TABLET BY MOUTH TWICE DAILY WITH MEALS 03/08 completed Not Available Not Available Not Available Uloric 40 mg tablet Take 1 tablet every day by oral route as directed for 90 days. 2024 active Not Available Not Available Not Avai lable Uloric 80 mg tablet TK 1 T PO D 04/24 completed Not Available Not Available Not Available OneTouch Verio test strips TEST 4 [...] oral route after meals for 90 days. 2024 active Not Available Not Available Not Avai lable Eliquis 5 mg tablet Take 1 tablet twice a day by oral route for 30 days. 12/06 completed Not Available Not Available Not Available Eliquis 2.5 mg tablet 01/07 completed Not Available Not Available Not Available Victoza 3-Emanuel 0.6 mg/0.1 mL (18 mg/3 mL) subcutane ous pen injector Inject 1.2 mg every day by subcutan eous route as directed for 30 days. 05/24 completed Not Available Not Available Not Available Humulin N NPH U-100 Insulin KwikPen 100 unit/mL (3 mL) subcutane ous active Not Available Not Available Not Available potassium chloride ER 20 mEq tablet,ex tended release active Dr. Eric jamison Not Available Not Available Not Available True Metrix Glucose Meter 04/25 completed Not Available Not Available Not Available Saxenda 3 mg/0.5 mL (18 mg/3 mL) subcutane ous pen injector ADMINIST ER 0.1 ML UNDER THE SKIN EVERY DAY DIRECTED 07/29 completed Not Available Not Available Not Available Humalog KwikPen U-200 Insulin 200 unit/mL (3 mL) subcutane ous 08/01 completed Not Available Not Available Not [...] KwikPen U-100 Insulin 100 unit/mL (3 mL) subcutane ous active Not Available Not Available Not Available TRUEplus Pen Needle 31 gauge x 5/16 USE WITH INSULIN INJECTIO NS 4 TIMES DAILY 09/06 completed Not Available Not Available Not Available Linzess 72 mcg capsule Take 1 capsule every day by oral route as directed for 90 days. 2023 active Not Available Not Available Not Avai lable Admelog SoloStar U-100 Insulin lispro 100 unit/mL subcutane ous pen INJ 12 TO 22 UNI SC TID WITH MEALS 03/08 completed Not Available Not Available Not Available OneTouch Ultra Blue Test Strip 09/06 completed Not Available Not Available Not Available Dexcom G6 Transmitt er [address] Rios Not Available Not Available Not Available Dexcom G6 Sensor [address] Rios Not Available Not Available Not Available Omnipod Dash Pods (Gen 4) subcutane ous cartridge 01/07 completed Not Available Not Available Not Available OneTouch Delica Plus Lancet 33 gauge 01/07 completed Not Available Not Available Not Available Gvoke HypoPen 2-Pack 1 mg/0.2 mL subcutane ous auto-inje ctor active Dr. Rios prescrib es Not Available Not Available Not Available aspirin 81 mg capsule Take 1 capsule every day by oral route. active Not Available Not Available No t Available Omnipod 5 G6 Pods (Gen 5) subcutane ous cartridge active Not Available Not Available No t Available Omnipod 5 G6 Intro Kit (Gen 5) subcutane ous cartridge with controlle r 05/10 completed Not Available Not Available Not Available Vitals Date Recorded Body height Body mass index (BMI) Body weight Body temperature Heart rate Systolic blood pressure Diastolic blood pressure Provider Name and Address Organization Details Last Updated DateTime 177.8 cm 38.6 kg/m2 218689. 1 g 97.2 [degF] 78 /min 140 mm[Hg] 70 mm[Hg] Jessica Macedo RN [facility] 14:22:23 Date Recorded Oxygen saturation Oxygen saturation in Arterial blood by Pulse oximetry Provider Name and Address Organization Details Last Updated DateTime 08/27/2024 95 % 95 % Aditya Castro MD [address] [facility] [address], [address], [facility] 08/27/2024 14:24:24 Social History Question Answer Notes LastModified by Organization Details LastModified Time Tobacco Smoking Status Never Smoker Not Available [employer] 10/19/2022 01:04:37 Do You Have An Advance Directive? No [id number].[id number] Information not available 10/19/2022 What Is Your Level Of Alcohol Consumption? None MIGRATION.0301 [id number] Information not available 10/19/2022 Are You Blind Or Do You Have Difficulty Seeing? No MIGRATION.0301 [id number] Information not available 10/19/2022 Is Blood Transfusion Acceptable In An Emergency? Yes Information not available 12/07/2023 What Is Your Level Of Caffeine Consumption? Occasional [id number].0301 [id number] Information not available 10/19/2022 How Much Tobacco Do You Chew? None MIGRATION.0301 [id number] Information not available 10/19/2022 What Is Your Code Status? Full Code Information not available 12/07/2023 In The 14 Days Before Symptom Onset, Have You Had Close Contact With A Laboratory-confi rmed COVID-19 While That Case Was Ill? No MIGRATION.0301 [id number] Information not available 10/19/2022 In The 14 Days Before Symptom Onset, Have You Had Close Contact With A Person Who Is Under Investigation For COVID-19 While That Person Was Ill? No MIGRATION.0301 [id number] Information not available 10/19/2022 Are You Deaf Or Do You Have Serious Difficulty Hearing? No MIGRATION.0301 [id number] Information not available 10/19/2022 What Type Of Diet Are You Following? CARDIAC And Renal MIGRATION.0301 [id number] Information not available 10/19/2022 Which Illicit Or Recreational Drugs Have You Used? NONE MIGRATION.0301 [id number] Information not available 10/19/2022 Do You Or Have You Ever Used E-cigarettes Or Vape? Never Used Electronic Cigarettes MIGRATION.0301 [id number] Information not available 10/19/2022 What Is The Highest Grade Or Level Of School You Have Completed Or The Highest Degree You Have Received? [id number] 2 Years MIGRATION.0301 [id number] Information not available 10/19/2022 What Is Your Occupation? DISABLED MIGRATION.0301 [id number] Information not available 10/19/2022 Have There Been Any Changes To Your Family Or Social Situation? No Information not available 12/07/2023 Are There Any Guns Present In Your Home? No MIGRATION.0301 [id number] Information not available 10/19/2022 Do You Use Insect Repellent Routinely? No Information not available 12/07/2023 Where Do You Live? SingleLevelHouse Information not available 12/07/2023 Advance Directive- Providers Has Reviewed Directive And Consents To Follow Them (insert Provider Name With Any Objectives In Notes Field) No MIGRATION.0301 [id number] Information not available 10/19/2022 Presence Of Domestic [...] Do You Have A Medical Power Of Ion Exchange Operator? No Information not available 12/07/2023 What Was The Date Of Your Most Recent Tobacco Screening? 12/25/2023 [email or web address] Information not available 12/25/2023 Do You Have Any Pets? Yes Information not available 12/07/2023 What Is Your Relationship Status? Single MIGRATION.0301 [id number] Information not available 10/19/2022 Do You Use Your Seat Belt Or Car Seat Routinely? Yes MIGRATION.0301 028991 Information not available 10/19/2022 Do You Have Smoke And Carbon Monoxide Detectors In Your Home? Yes Information not available 12/07/2023 Are You Passively Exposed To Smoke? No Information not available 12/07/2023 Do You Or Have You Ever Used Smokeless Tobacco? Never Used Smokeless Tobacco MIGRATION.0301 [id number] Information not available 10/19/2022 Are There Any Smokers In Your House? No Information not available 12/07/2023 Do You Feel Stressed (tense, Restless, Nervous, Or Anxious, Or Unable To Sleep At Night)? CP2410-6 MIGRATION.0301 [id number] Information not available 10/19/2022 Do You Use Sunscreen Routinely? No Information not available 12/07/2023 Have You Recently Traveled Abroad? No MIGRATION.0301 [id number] Information not available 10/19/2022 Are You Currently In School? No MIGRATION.0301 [id number] Information not available 10/19/2022 Sex: Unknown Functional Status Question Answer Note LastModified by Organizat ion Details LastModified Time Do you have difficulty walking or climbing stairs? No MIGRATION.[id number] Information not available 10/19/2022 Do you have difficulty doing errands alone? No MIGRATION.[id number] Information not available 10/19/2022 Do you have difficulty dressing or bathing? No MIGRATION.[id number] Information not available 10/19/2022 What is your exercise level? Occasional [id number] Information not available 10/19/2022 Mental Status Question Answer Note LastModified by Organizat ion Details LastModified Time Do you have difficulty concentrating, remembering or making decisions? No [id number] Information not available 10/19/2022 Family History Relationship Description Onset Age of this Age Resolved Age Notes LastModified by Organization Details LastModified Time Father Heart disease [id number] Not available 10/19/2022 01:06:25 Father Hypertensive disorder MIGRATION.[id number] Not available 10/19/2022 01:06:25 Notes:cancer-mother NO ENT H ISTORY Medical History Condition Response SLEEP APNEA N MRSA N ALLERGIES/HAYFEVER N HEART ARRHYTHMIA Y LUNG DISEASE/DISORDER N INSOMNIA N HISTORY OF DRUG ABUSE N COPD N RADIATION / CHEMOTHERAPY N HIGH CHOLESTEROL / HYPERLIPIDEMIA Y HYPERTHYROIDISM N BLOOD DISEASES N EAR OR HEARING PROBLEMS N HYPOTHYROIDISM N SHINGLES N DEPRESSION (INCLUDING POST ) N HAVE YOU BEEN HOSPITALIZED OR SEEN IN [facility] ER IN THE PAST YEAR ? [...] Y CHF N PACEMAKER N DIZZINESS N AIDS/HIV N HEART DISEASE/HEART PROBLEMS Y FRACTURES N HYPERTENSION Y CANCER: SPECIFY N TOURETTE'S N BLOOD TRANSFUSION N ANEMIA/BLOOD DISORDER Y ANESTHESIA COMPLICATIONS N CHRONIC EAR INFECTIONS N AUTOIMMUNE DISEASE N TUBERCULOSIS N Immunizations Vaccine Type Date Status Note Provider Nam e and Address Organization Details Recorded Time Influenza, split virus, quadrivalent, PF 3 completed [facility]ERN[facility] Red[facility] 07/03/2023 11:25:39 pneumococcal polysaccharide PPV23 0 completed Not Available [facility] 10/19/2022 01:16:16 Tdap 0 completed Not Available [facility] 10/19/2022 01:16:16 Influenza, split virus, quadrivalent, PF 9 completed Not Available [facility] 10/19/2022 01:16:16 Influenza, split virus, quadrivalent, PF 2 completed Not Available [facility] 10/19/2022 01:16:16 Influenza, split virus, quadrivalent, PF 1 completed Not Available [facility] 10/19/2022 01:16:16 Past Encounters Encounter ID Performer Location Encounter Start Date Encounter Closed Date Diagnosis/Indication Diagnosis SNOMED-CT Code Diagnosis ICD10 Code Diagnosis Note [id number] Aditya Castro MD [facility] [address] [address] 08/27/2024 14:12:33 08/27/2024 14:51:01 Right flank pain 940170915 R10.9 Kidney stone 13644478 N2 0.0 Rt Gallstone 382984180 K80. 20 Chronic constipation 236 411315 K59.09 Chronic back pain 488105 002 G89.29 Impaired mobility 850747 05 Z74.09 Due to pain Obesity 655082445 E66.9 Hospital i npatient stay within past 30 days 8583336409 106 Z76.89 Gout 18178926 M10.9 Gastroesop hageal reflux disease without esophagitis 591327020 K21.9 End-stage renal disease 05475492 N18.6 History of deep vein thrombosis 645387522 Z86.718 Hyperlipidemia 12253255 E78.5 Hypertriglyceridemia 302 479961 E78.2 Health Concerns Section Related Observation LastModified by Organization Detai ls LastModified Time None Recorded Concern Status LastModified by Organization Details LastModified Time None Recorded Payers Encounter Date Sequence Insurance Name Policy Number Policy Ge Covered Member ID Ge Member ID Guarantor Name 08/27/2024 2 [place] WHEN MEDICARE OR MEDICARE REPLACEMENT PRIMARY) Juvenal Daigle [id number] Juvenal Daigle 08/27/2024 1 [facility] (MEDICARE REPLACEMENT/AD VANTAGE - PPO) [id number] Juvenal C Pilo [id number] Juvenal Daigle Notes Date Note Type Note Provider Name and Address Organization Details Recorded Time 08/27/2024 text/html [facility]:Hospital fuv . Pt was admitted to [facility] from 08/17/24 to 08/19/24 due to hematuria, pneumonia and hyperkalemia. He has finished all his meds and he is feeling much better now. Pt is requesting Rx for bedside commode and marcelo hose stockings. Pt will be seeing Surg for his gallstones next week. Pt is f/u with Uro at [facility] for his kidney stones and hematuria. Pt has chronic back pain for last several years and was seeing Pain clinic and Spine surgeon for it in the past; but he has not seen them for last couple years. Pt is f/u with Nephro, Endo and Cardio regularly. Aditya Castro MD [address] [place] [address], [place] [address], [place], [address], [facility] [employer] 08/27/2024 15:24:37
--- OUTSIDE RECORDS SUMMARY | 2024-09-07 18:55 | XMS_ITS | Data Portability ---
Author Organization [place] [facility] Checkr, Main Office Address [address] [place] [address] Care Team Providers Care Tele Tech Name Role Phone ADITYA CASTRO Primary Care Provider [phone] ADITYA CASTRO Referring Provider [phone] ADITYA CASTRO Primary Care Provider Assessment Encounter Date Assessment Date Assessment LastModified by Organization Details LastModified Time 05/10/2024 05/10/2024 By x-ray and exa m [...] per schedule. Cont f/u with Endo at [place] as per schedule. Cont f/u with Spine as per schedule. Cont f/u with Rheumat at [facility] as per schedule. Cont f/u with Surg as per schedule. Cont f/u with Cardio at [facility] as per schedule. Cont f/u with Nephro at [facility] as per schedule. Cont f/u with Hemat at [place] as per schedule. Cont f/u with [facility] as per schedule. Cont f/u with Ophtho at as per schedule. Cont f/u with Derm at [facility] as per schedule. Cont f/u with Dr. Langley (Hand surgeon) at as per schedule. Educated pt about alarming symptoms to monitor at home and call us back or get checked in ED. Pt had acute renal failure and was admitted hospital due to s/e from Allopurinol as per his Process Laboratory Specialist. So pt can not take any Allopurinol [...] in 3-4 months. Annual labs in 05/15. Not available 05/21/2024 16:19:00 06/21/2024 06/21/2024 The [...] per schedule. Cont f/u with Endo at [place] as per schedule. Cont f/u with Spine as per schedule. Cont f/u with Rheumat at [facility] as per schedule. Cont f/u with Surg as per schedule. Cont f/u with Cardio at [facility] as per schedule. Cont f/u with Nephro at [facility] as per schedule. Cont f/u with Hemat at [place] as per schedule. Cont f/u with [facility] as per schedule. Cont f/u with Ophtho at as per schedule. Cont f/u with Derm at [facility] as per schedule. Cont f/u with Dr. Langley (Hand surgeon) at as per schedule. Educated pt about alarming symptoms to monitor at home and call us back or get checked in ED. Pt had acute renal failure and was admitted hospital due to s/e from Allopurinol as per his Process Laboratory Specialist. So pt can not take any Allopurinol [...] months as before. Annual labs in 05/15. [email or web address] Not available 07/15/2024 12:11:51 08/27/2024 08/27/2024 54 yo M with - [...] per schedule. Cont f/u with Endo at [place] as per schedule. Cont f/u with Spine as per schedule. Cont f/u with Rheumat at [facility] as per schedule. Cont f/u with Surg as per schedule. Cont f/u with Cardio at [facility] as per schedule. Cont f/u with Nephro at [facility] as per schedule. Cont f/u with Hemat at [place] as per schedule. Cont f/u with [facility] as per schedule. Cont f/u with Ophtho at as per schedule. Cont f/u with Derm at [facility] as per schedule. Cont f/u with Dr. Langley (Hand surgeon) at as per schedule. Educated pt about alarming symptoms to monitor at home and call us back or get checked in ED. Pt had acute renal failure and was admitted hospital due to s/e from Allopurinol as per his Process Laboratory Specialist. So pt can not take any Allopurinol [...] in 3-4 months. Annual labs in 05/15. [email or web address] Not available 08/27/2024 15:22:37 Plan of Treatment Reminders Order Date Submit Date Provider Last Modified By Organization Details Last Modified Time Details Appointments Follow Up 15 2024 10:00A M Aditya Castro MD Not available Not available Not available Lab None recorde d. Referral physica l therapi st referra l - Please contact patient to lora larose 2023 024 [email or web address] [facility], [address], [place], [address], 05/21/2024 15:57:09 general surgeon referra l - Please call patient to lora cantu appoint ment. Thank you. 2023 024 [email or web address] Everton Hooker MD, [address], [place], [address], 08/12/2024 08:54:30 pain managem ent referra l - Please call patient to lora larose an appoint ment. Thank you. 2024 025 [email or web address], [address], [place], [address], 08/28/2024 12:10:39 Procedures injecti on/aspi ration joint/b ursa (PROC) 2023 024 [email or web address] In-Office Order, Internal Use Only DO Not Attach Compendium DO Not Attach Compendium, Do Not Delete/merge, [id number] 05/10/2024 11:45:25 injecti on/aspi ration joint/b ursa (PROC) 2023 024 [email or web address] In-Office Order, Internal Use Only DO Not Attach Compendium DO Not Attach Compendium, Do Not Delete/merge, [id number] 06/21/2024 11:43:13 Surgeries None recorde d. Imaging XR, knee 2023 024 [email or web address] [facility] [place], [address], [place], [address], 05/10/2024 13:41:55 XR, hip + pelvis, unilate ral 2023 024 [email or web address] [facility] [place], [address], [place], [address], 06/21/2024 12:02:32 Medication Orders bupivac will HCl 0.5 % (5 mg/mL) injecti on solutio n 2023 024 [email or web address] [facility], [address] [place], [place], [id number], 05/10/2024 12:52:07 Kenalog 10 mg/mL suspens ion for injecti on 2023 024 [id number] 15 [facility], [address] [place], [place], [id number], 07/12/2024 21:17:10 prednis one 10 mg tablets in a dose pack 2023 024 [email or web address] [facility] #00302, [address], [place], [id number], 07/15/2024 11:30:05 Linzess 72 mcg capsule 2023 [facility] #47930, [address], [place], [place], [id number], 05/21/2024 16:08:05 Uloric 40 mg tablet 2023 [facility] #11876, [address], [place], [place], [id number], 05/21/2024 16:19:35 Vascepa 1 gram capsule 2023 [facility] #32497, [address], [place], [place], [id number], 05/21/2024 16:08:06 atorvas tatin 80 mg tablet 2023 [facility] #99041, [address], [place], [place], [id number], 05/21/2024 16:08:06 ezetimi be 10 mg tablet 2023 [facility] #16313, [address], [place], [place], [id number], 05/21/2024 16:08:09 gemfibr ozil 600 mg tablet 2023 [facility] #20161, [address], [place], [place], [id number], 05/21/2024 16:08:08 ergocal ciferol (vitami n D2) 1,250 mcg (50,000 unit) capsule 2023 [facility] #54058, [address], [place], [place], [id number], 05/21/2024 16:08:05 bupivac will HCl 0.5 % (5 mg/mL) injecti on solutio n 2023 [email or web address] [facility], [address], [place], [place], [id number], 06/21/2024 11:52:35 Kenalog 10 mg/mL suspens ion for injecti on 2023 [id number] 15 [facility] #73320, [address], [place], [place], [id number], 07/12/2024 21:17:10 tamsulo sin 0.4 mg capsule 2023 [facility] #46251, [address], [place], [place], [id number], 07/15/2024 12:10:41 ketorol ac 10 mg tablet 2023 024 [facility], [address], [place], [place], [id number], 08/27/2024 15:23:27 oxycodo ne 5 mg tablet 2023 024 [email or web address] [facility], [address], [place], [place], [id number], 08/27/2024 15:23:49 ondanse ness HCl 4 mg tablet 2023 [email or web address] [facility], [address], [place], [id number], 07/15/2024 12:10:41 colchic ine 0.6 mg tablet 2024 025 SAMANTHA [facility], [address], [place], [place], [id number], 08/27/2024 14:33:42 Uloric 40 mg tablet 2024 025 [facility] #98466, [address], [place], [place], [id number], 08/27/2024 15:24:16 Vascepa 1 gram capsule 2024 025 [facility] #15198, [address], [place], [place], [id number], 08/27/2024 15:24:17 tamsulo sin 0.4 mg capsule 2024 025 [facility] #88680, [address], [place], [place], [id number], 08/27/2024 14:30:45 ondanse ness HCl 4 mg tablet 2024 025 [facility] #01464, [address], [place], [place], [id number], 08/27/2024 14:31:17 ezetimi be 10 mg tablet 2024 025 [facility] #78806, [address], [place], [place], [id number], 08/27/2024 15:24:17 gemfibr ozil 600 mg tablet 2024 025 [facility] #29875, [address], [place], [place], [id number], 08/27/2024 15:24:15 famotid ine 40 mg tablet 2024 025 [facility] #05318, [address], [place], [place], [id number], 08/27/2024 14:33:43 Patient TargetsNo targets recorded. Patient Instructions Encounter Date Encounter Id Patient Instructions Last Modified By Organization Details Last Modified Time 05/21/2024 [id number] starting a weigh t loss plan: care instructions [email or web address] Not available 05/21/2024 16:20:00 07/15/2024 [id number] starting a weigh t loss plan: care instructions [email or web address] Not available 07/15/2024 12:10:41 08/27/2024 [id number] starting a weigh t loss plan: care instructions Not available 08/27/2024 14:30:39 Reason for Referral Physical Therapist Referral for Bilateral osteoarthritis of knees Please contact patient to schedule Referring Physician: Gucci Brown, Orthopedic Surgery, Encounter Date: 05/10/2024 General Surgeon Referral for Gallstone RUQ pain, gallstones ++ Please call patient to schedule an appointment. Thank you. Referring Physician: Aditya Castro [facility], Encounter Date: 07/15/2024 Pain Management Referral for Chronic back pain Please call patient to schedule an appointment. Thank you. Referring Physician: Aditya Castro [facility], Encounter Date: 08/27/2024 Results Created Date Observation Date Name Description Value Unit Range Abnormal Flag Note LastModifiedBy Organization Detail LastModifiedTime 05/07/2005/07/2024 MICRO ALBUM IN RANDO M URINE microalbumin , urine 785.1 mg/L 0.0-16 .6 high Not Available [facility] (Lab) [address] [place], [address], 05/07/2024 14:51:53 05/07/20 24 05/07/2024 CBC/C OMPLE TE BLD COUNT W/DIF F white blood cells 5.1 x10'3 /uL 4.2-10 .8 Not Available [facility] (Lab) [address] [place], [address], 05/07/2024 14:52:26 05/07/20 24 05/07/2024 CBC/C OMPLE TE BLD COUNT W/DIF F red blood cells 3.54 x10'6 /uL 4.10-5 .80 low Not Available [facility] (Lab) [address] [place], [address], 05/07/2024 14:52:26 05/07/20 24 05/07/2024 CBC/C OMPLE TE BLD COUNT W/DIF F hemoglobin 10.7 g/dL 13.2-1 7.0 low Not Available [facility] (Lab) [address] [place], [address], 05/07/2024 14:52:26 05/07/20 24 05/07/2024 CBC/C OMPLE TE BLD COUNT W/DIF F hematocrit 31.9 % 39.3-5 0.0 low Not Available [facility] (Lab) [address] [place], [address], 05/07/2024 14:52:26 05/07/20 24 05/07/2024 CBC/C OMPLE TE BLD COUNT W/DIF F mean red cell volume 90.1 fL 80.0-9 7.0 Not Available [facility] (Lab) [address] [place], [address], 05/07/2024 14:52:26 05/07/20 24 05/07/2024 CBC/C OMPLE TE BLD COUNT W/DIF F mean red cell hemoglobin 30.2 pg 27.0-3 3.0 Not Available [facility] (Lab) [address] [place], [address], 05/07/2024 14:52:26 05/07/20 24 05/07/2024 CBC/C OMPLE TE BLD COUNT W/DIF F mean RBC HGB concentratio n 33.5 g/dL 31.0-3 6.0 Not Available [facility] (Lab) [address] [place], [address], 05/07/2024 14:52:26 05/07/20 24 05/07/2024 CBC/C OMPLE TE BLD COUNT W/DIF F red cell distribution width 14.6 % 11.8-1 5.5 Not Available [facility] (Lab) [address] [place], [address], 05/07/2024 14:52:26 05/07/20 24 05/07/2024 CBC/C OMPLE TE BLD COUNT W/DIF F platelets 216 x10'3 /uL 150-[address] [facility] (Lab) [address] [place], [address], 05/07/2024 14:52:26 05/07/20 24 05/07/2024 CBC/C OMPLE TE BLD COUNT W/DIF F mean platelet volume 11.2 fL 9.0-12 .4 Not Available [facility] (Lab) [address] [place], [address], 05/07/2024 14:52:26 05/07/20 24 05/07/2024 CBC/C OMPLE TE BLD COUNT W/DIF F neutrophils 44.1 % 39.0-7 2.0 Not Available [facility] (Lab) [address] [place], [address], 05/07/2024 14:52:26 05/07/20 24 05/07/2024 CBC/C OMPLE TE BLD COUNT W/DIF F lymphocytes 33.3 % 16.0-4 7.0 Not Available [facility] (Lab) [address] [place], [address], 05/07/2024 14:52:26 05/07/20 24 05/07/2024 CBC/C OMPLE TE BLD COUNT W/DIF F monocytes 14.3 % 5.0-12 .0 high Not Available [facility] (Lab) [address] [place], [address], 05/07/2024 14:52:26 05/07/20 24 05/07/2024 CBC/C OMPLE TE BLD COUNT W/DIF F eosinophils 7.5 % 1.0-7. [address] [facility] (Lab) [address] [place], [address], 05/07/2024 14:52:26 05/07/20 24 05/07/2024 CBC/C OMPLE TE BLD COUNT W/DIF F basophils 0.6 % 0.0-2. [address] [facility] (Lab) [address] [place], [address], 05/07/2024 14:52:26 05/07/20 24 05/07/2024 CBC/C OMPLE TE BLD COUNT W/DIF F immature granulocytes 0.2 % 0.00-0 .50 Not Available [facility] (Lab) [address] [place], [address], 05/07/2024 14:52:26 05/07/20 24 05/07/2024 CBC/C OMPLE TE BLD COUNT W/DIF F neutrophils, absolute count 2.23 x10'3 /uL 1.5-8. 0 Not Available [facility] (Lab) [address] [place], [address], 05/07/2024 14:52:26 05/07/20 24 05/07/2024 CBC/C OMPLE TE BLD COUNT W/DIF F lymphocytes, absolute count 1.68 x10'3 /uL 1.07-3 .43 Not Available [facility] (Lab) [address] [place], [address], 05/07/2024 14:52:26 05/07/20 24 05/07/2024 CBC/C OMPLE TE BLD COUNT W/DIF F monocytes, absolute count 0.72 x10'3 /uL 0.29-0 .99 Not Available [facility] (Lab) [address] [place], [address], 05/07/2024 14:52:26 05/07/20 24 05/07/2024 CBC/C OMPLE TE BLD COUNT W/DIF F eosinophils, absolute count 0.38 x10'3 /uL 0.02-0 .53 Not Available [facility] (Lab) [address] [place], [address], 05/07/2024 14:52:26 05/07/20 24 05/07/2024 CBC/C OMPLE TE BLD COUNT W/DIF F basophils, absolute count 0.03 x10'3 /uL 0.01-0 .08 Not Available [facility] (Lab) [address] [place], [address], 05/07/2024 14:52:26 05/07/20 24 05/07/2024 CBC/C OMPLE TE BLD COUNT W/DIF F immature granulocytes ,absolute 0.01 x10'3 /uL 0.00-0 .05 Not Available [facility] (Lab) [address] [place], [address], 05/07/2024 14:52:26 05/07/20 24 05/07/2024 CBC/C OMPLE TE BLD COUNT W/DIF F nucleated red blood cells 0.0 % -0 Not Available [facility] (Lab) [address] [place], [address], 05/07/2024 14:52:26 05/07/20 24 05/07/2024 CBC/C OMPLE TE BLD COUNT W/DIF F NRBC# 0.00 x10'3 /uL Not Available [facility] (Lab) [address] [place], [address], 05/07/2024 14:52:26 05/07/20 24 05/07/2024 VITAM IN D 25-HY DROXY [id number] 25.2 NG/mL 30-100 low Vitam in D Statu s: Defic ient: <20 ng/mL Insuf ficie nt: 20-29 ng/mL Suffi cient : 30-10 0 ng/mL Not Available [facility] (Lab) [address] [place], [address], 05/07/2024 16:09:08 05/07/20 24 05/07/2024 TSH W/REF JOSE FT4 TSH with reflex free T4 1.430 uIU/m L 0.465- 4.680 Not Available [facility] (Lab) [address] [place], [address], 05/07/2024 16:20:16 05/07/20 24 05/07/2024 PSA SCREE N PSA medicare screen 0.71 NG/mL 0.00-4 .00 Not Available [facility] (Lab) [address] [place], [address], 05/07/2024 16:20:17 05/07/20 24 05/07/2024 URIC ACID SERUM uric acid 6.7 mg/dL 3.5-8. [address] [facility] (Lab) [address] [place], [address], 05/07/2024 16:36:28 05/07/20 24 05/07/2024 COMPR EHENS CARA METAB OLIC PANEL sodium 134 mmol/ L 137-14 5 low Not Available [facility] (Lab) [address] [place], [address], 05/07/2024 16:36:34 05/07/20 24 05/07/2024 COMPR EHENS CARA METAB OLIC PANEL potassium 3.7 mmol/ L 3.5-5. 1 Not Available [facility] (Lab) [address] [place], [address], 05/07/2024 16:36:34 05/07/20 24 05/07/2024 COMPR EHENS CARA METAB OLIC PANEL chloride 96 mmol/ L 98-107 low Not Available [facility] (Lab) [address] [place], [address], 05/07/2024 16:36:34 05/07/20 24 05/07/2024 COMPR EHENS CARA METAB OLIC PANEL carbon dioxide 29 mmol/ L 22-30 Not Available [facility] (Lab) [address] [place], [address], 05/07/2024 16:36:34 05/07/20 24 05/07/2024 COMPR EHENS CARA METAB OLIC PANEL anion gap 12.7 mmol/ L 14-[address] [facility] (Lab) [address] [place], [address], 05/07/2024 16:36:34 05/07/20 24 05/07/2024 COMPR EHENS CARA METAB OLIC PANEL glucose 316 mg/dL 70-99 high Not Available [facility] (Lab) [address] [place], [address], 05/07/2024 16:36:34 05/07/20 24 05/07/2024 COMPR EHENS CARA METAB OLIC PANEL BUN 63 mg/dL 8-19 high Not Available [facility] (Lab) [address] [place], [address], 05/07/2024 16:36:34 05/07/20 24 05/07/2024 COMPR EHENS CARA METAB OLIC PANEL creatinine 6.80 mg/dL 0.66-1 .25 high Not Available [facility] (Lab) [address] [place], [address], 05/07/2024 16:36:34 05/07/20 24 05/07/2024 COMPR EHENS CARA METAB OLIC PANEL GFR 8 Refer ence Range : [place] ge GFR Healt hy Adult : >60 [...] calcu lator is avail able on the [facility] websi te: [email or web address] :[email or web address] [email or web address] rg/pr ofess ional s/kdo qi/gf r_cal culat or Not Available [facility] (Lab) [address] [place], [address], 05/07/2024 16:36:34 05/07/20 24 05/07/2024 COMPR EHENS CARA METAB OLIC PANEL alkaline phosphatase 96 U/L 38-[address] [facility] (Lab) [address] [place], [address], 05/07/2024 16:36:34 05/07/20 24 05/07/2024 COMPR EHENS CARA METAB OLIC PANEL alanine aminotransfe rase 27 U/L 0-50 Not Available [facility] (Lab) [address] [place], [address], 05/07/2024 16:36:34 05/07/20 24 05/07/2024 COMPR EHENS CARA METAB OLIC PANEL aspartate aminotransfe rase 38 U/L 15-46 Not Available [facility] (Lab) [address] [place], [address], 05/07/2024 16:36:34 05/07/20 24 05/07/2024 COMPR EHENS CARA METAB OLIC PANEL bilirubin, total 0.60 mg/dL 0.20-1 .30 Not Available [facility] (Lab) [address] [place], [address], 05/07/2024 16:36:34 05/07/20 24 05/07/2024 COMPR EHENS CARA METAB OLIC PANEL calcium 9.4 mg/dL 8.4-[address] [facility] (Lab) [address] [place], [address], 05/07/2024 16:36:34 05/07/20 24 05/07/2024 COMPR EHENS CARA METAB OLIC PANEL total protein 7.1 g/dL 6.3-8. 2 Not Available [facility] (Lab) [address] [place], [address], 05/07/2024 16:36:34 05/07/20 24 05/07/2024 COMPR EHENS CARA METAB OLIC PANEL albumin 4.0 g/dL 3.4-5. 0 Not Available [facility] (Lab) [address] [place], [address], 05/07/2024 16:36:34 05/07/20 24 05/07/2024 COMPR EHENS CARA METAB OLIC PANEL globulin 3.1 g/dL 2.6-4. 2 Not Available [facility] (Lab) [address] [place], [address], 05/07/2024 16:36:34 05/07/20 24 05/07/2024 COMPR EHENS CARA METAB OLIC PANEL A/G ratio 1.3 ratio 1.0-2. 0 Not Available [facility] (Lab) [address] [place], [address], 05/07/2024 16:36:34 05/07/20 24 05/07/2024 LIPID PANEL cholesterol 144 mg/dL 140-19 9 NIH MARIELLE NSUS RECOM MENDA TION FOR DALIA STERO L: ADULT CHILD LOW RISK: <200 <170 BORDE RLINE : <200- 239 ----- HIGH RISK: >240 >200 Not Available [facility] (Lab) [address] [place], [address], 05/07/2024 16:36:39 05/07/20 24 05/07/2024 LIPID PANEL triglyceride s 146 mg/dL 0-150 NIH MARIELLE NSUS REPOR T RECOM MENDA TION FOR TRIGL YCERI MARIELLA: ADULT CHILD LOW RISK: <150 ----- BODER LINE: 150-1 99 ----- HIGH RISK: >200 ----- Not Available [facility] (Lab) [address] [place], [address], 05/07/2024 16:36:39 05/07/20 24 05/07/2024 LIPID PANEL HDL cholesterol 29 mg/dL 40- low Not Available [facility] (Lab) [address] [place], [address], 05/07/2024 16:36:39 05/07/20 24 05/07/2024 LIPID PANEL [...] LDL RESUL T WILL NOT BE REPOR MARCELO. Not Available [facility] (Lab) [address] [place], [address], 05/07/2024 16:36:39 05/07/20 24 05/07/2024 MAGNE SIUM magnesium 2.3 mg/dL 1.6-2. 3 Not Available [facility] (Lab) [address] [place], [address], 05/07/2024 16:36:42 05/07/20 24 05/07/2024 VITAM IN B12 (SOFIA AUSTIN ) vb12 626 pg/mL 239-93 1 Not Available [facility] (Lab) [address] [place], [address], 05/07/2024 16:57:46 05/07/20 24 05/07/2024 FOLAT E, SERUM /PLAS MA folate 12.7 NG/mL 2.76-2 0.0 Not Available [facility] (Lab) [address] [place], [address], 05/07/2024 16:57:48 05/07/20 24 05/10/2024 HA1C, SEND- OUT TO [facility] RP hemoglobin A1C 9.9 % 4.8-5. 6 high . . Predi abete s: 5.7 - 6.4 Diabe canelo: >6.4 Glyce karthikeyan contr ol for adult s with diabe canelo: <7.0 Perfo rmed at: - [facility] [address], [place] [address] Lab Direc tor: Kevin portillo PhD, Phone : [phone] Not Available [facility] (Lab) [address] [place], [address], 05/10/2024 07:14:44 05/02/20 24 scapu la, right [facility] [address] [place] [address] [phone] Patien t Name: JUVENAL GARCIA Access ion #: [id number] Sex: M : 1969 3 Dictat ed By: Yady Ma Attend ing Physic britton: EVONNE CASTRO [facility] Physic britton: EVONNE CASTRO Exam Date: 2023 11:58 AM Exam Name: XR SCAPUL A RT Admitt ing Diagno sis(es ): CLINIC AL INDICA TION: pain TECHNI QUE: 2 radiog raphic views of the right scapul a were obtain ed. Compar adam: None FINDIN GS/IMP RESSIO N: There is no eviden ce of acute fractu re or disloc ation. The visual ized joint space is well mainta ined. The alignm ent is anatom ical. There is no radiop aque foreig n body. Electr onical ly Signed by: Yady Ma at 2023 12:08: 46 PM Page 1 [facility] (Imaging) [address] [place], [address], 05/07/2024 09:12:00 05/02/20 24 XR, thora cic spine , 3 view [facility] [address] [place] [address] Patien t Name: JUVENAL GARCIA Access ion #: [id number] Sex: M : 1969 3 Dictat ed By: Vahe Arana Attend ing Physic britton: EVONNE CASTRO [facility] Physic britton: EVONNE CASTRO Exam Date: 2023 11:57 AM Exam Name: XR T SPINE 3V Admitt ing Diagno sis(es ): ACCESS ION #: [id number] INDICA TION: pain COMPAR ADAM: None TECHNI QUE:3 views of the thorac [...] at 2023 12:35: 42 PM Page [address] ([facility]) [address] [facility], [place], [address], 05/07/2024 09:12:00 05/10/20 24 XR, knee No observ ation record ed. [email or web address] [facility] [place] [address], [place], [address], 05/10/2024 13:41:54 06/21/20 24 XR, hip + pelvi s, unila teral No observ ation record ed. [email or web address] [facility] [place] [address], [place], [address], 06/21/2024 12:02:31 07/12/20 24 07/12/2024 CT, abdom en + pelvi s, w/o contr ast No observ ation record ed. [address], [place], [address], 07/15/2024 11:27:52 07/16/20 24 07/16/2024 CT, abdom en + pelvi s, w/o contr ast No observ ation record ed. [address], [place], [address], 08/27/2024 14:24:26 08/11/20 24 08/11/2024 CT, abdom en + pelvi s, w/o contr ast No observ ation record ed. [address], [place], [address], 08/27/2024 14:24:26 09/06/19 25 09/06/2024 imagi ng/di agnos tic resul t No observ ation record ed. [address], [place], [address], 09/06/2024 12:57:47 Result Notes None recorded. 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 199041941 Active 2017 Not Available [facility] 3 01:10:47 Chronic back pain 906848426 Active 2022 Not Available [facility] 3 01:10:47 Hyperchol esterolem ia 87403826 Active 2017 Not Available [facility] 3 01:10:47 Seborrhei c dermatiti s of scalp 068691640 Active 2022 Not Available [facility] 3 01:10:47 Chronic physical disabilit y 976350866 Active 2018 Not Available [facility] 3 01:10:47 History of deep vein thrombosi s 783917898 Active 2017 Not Available [facility] 3 01:10:47 Heartburn 57373754 Active 2017 Not Available [facility] 3 01:10:47 Ultrasoun d scan abnormal 901716527 Active 2020 Not Available [facility] 3 01:10:47 Hypertrop hy of nasal turbinate s 76591661 Active 2021 Not Available [facility] 3 01:10:47 Sensorine ural hearing loss of bilateral ears 041964984 Active 2021 Not Available [facility] 3 01:10:47 Periphera l venous insuffici ency 69745282 Active 2020 Not Available [facility] 3 01:10:47 Myocardia l infarctio n 10070603 Completed 201705/08/2018 Not Available [facility] 3 01:10:48 Stable angina 788029391 Active 2017 Not Available [facility] 3 01:10:48 End stage renal failure on dialysis 122174316 Active 2019 Not Available [facility] 3 01:10:48 Degenerat ion of lumbar intervert ebral disc 91350673 Active 2018 Not Available [facility] 3 01:10:48 Gastroeso phageal reflux disease without esophagit is 061212140 Active 2017 Not Available [facility] 3 01:10:48 Anemia 073862686 Active 2017 Not Available [facility] 3 01:10:48 Chronic low back pain 857385177 Active 2018 Not Available [facility] 3 01:10:48 Pain in toe 833787002 Active 2018 Not Available [facility] 3 01:10:48 Pain in toe 072869472 Active 2018 Not Available [facility] 3 01:10:48 Right upper quadrant pain 017081783 Active 2020 Not Available [facility] 3 01:10:48 Type 2 diabetes mellitus without complicat ion 382429804 Completed 201701/10/2019 Not Available [facility] 3 01:10:48 Pain in left foot 99841560561 9107 Active 2019 Not Available [facility] 3 01:10:48 Vitamin D deficienc y 15719522 Active 2017 Not Available [facility] 3 01:10:49 Seasonal allergic rhinitis 262394761 Active 2017 Not Available [facility] 3 01:10:49 Sinusitis 59754645 Active 2021 Not Available [facility] 3 01:10:49 Hypertens cara disorder 35728957 Active 2017 Not Available [facility] 3 01:10:49 Osteoarth ritis 729612880 Active 2019 Not Available [facility] 3 01:10:49 Umbilical hernia 311686295 Active 2018 Not Available [facility] 3 01:10:49 Vertigo 002423326 Active 2021 Not Available [facility] 3 01:10:49 Abrasion and/or friction burn of skin 126323187 Active 2018 Not Available [facility] 3 01:10:49 Chronic sinusitis 68859025 Active 2021 Not Available [facility] 3 01:10:49 Multiple benign melanocyt ic nevi 732335510 Active 2017 Not Available [facility] 3 01:10:50 Deep venous thrombosi s of lower extremity 960884094 Active 2022 Not Available [facility] 3 01:10:50 Dizziness 412181514 Active 2017 Not Available [facility] 3 01:10:50 Dysphagia 08352512 Active 2021 Not Available [facility] 3 01:10:50 Obesity 418716779 Active 2017 Not Available [facility] 3 01:10:50 Ketoacido sis due to type 1 diabetes mellitus 488076777 Active 2019 Not Available [facility] 3 01:10:50 Nausea 264953581 Active 2021 Not Available [facility] 3 01:10:50 Congestiv e heart failure 50042139 Active 2017 Not Available [facility] 3 01:10:50 Diabetic periphera l neuropath y 852906825 Active 2017 Not Available [facility] 3 01:10:51 Asymmetri nikos hearing loss 199952011 Active 2021 Not Available [facility] 3 01:10:51 Chronic kidney disease stage 4 248217280 Completed 201707/29/2020 Not Available [facility] 3 01:10:51 Chronic kidney disease stage 5 255394581 Active 2019 Not Available [facility] 3 01:10:51 Uncontrol led type 2 diabetes mellitus 005071470 Completed 201705/16/2019 Aditya Castro MD [address] [facility], [facility] [address], [place], [address] , [facility] 4 09:03:03 Gastritis 7603370 Active 2021 Not Available [facility] 3 01:10:51 End-stage renal disease 19308452 Active 2019 Not Available [facility] 3 01:10:51 Type 1 diabetes mellitus 64896729 Active 2018 Not Available [facility] 3 01:10:52 Atrial fibrillat ion 17005969 Active 2017 Not Available [facility] 3 01:10:52 Hyperlipi demia 28716838 Active 2017 Not Available [facility] 3 01:10:52 Heart disease 34784994 Active 2017 Not Available [facility] 3 01:10:52 Hyperpara thyroidis m 79678633 Active 2018 Not Available [facility] 3 01:10:52 Nasal congestio n 11062502 Active 2021 Not Available [facility] 3 01:10:52 Diabetes mellitus 22646610 Active 2017 Not Available [facility] 3 01:10:52 Obstructi ve sleep apnea syndrome 72706000 Active 2018 Not Available [facility] 3 01:10:53 Epigastri c pain 68424255 Active 2021 Not Available [facility] 3 01:10:53 Chronic idiopathi c constipat ion 65990164 Active 2020 Not Available [facility] 3 01:10:53 Corneal abrasion 08233163 Active 2018 Not Available [facility] 3 01:10:53 Dystrophi a unguium 07012355 Active 2018 Not Available [facility] 3 01:10:53 Gout 44855208 Active 2017 Not Available [facility] 3 01:10:53 Chronic renal failure 46349247 Completed 201705/08/2018 Not Available [facility] 3 01:10:54 Skin lesion 92582756 Active 2017 Not Available [facility] 3 01:10:54 Hypertrig lyceridem ia 375957912 Active 2022 Aditya Castro MD [address], [place], [address] , [employer] 3 16:04:08 Chronic constipat ion 004024918 Active 2022 Aditya Castro MD [address], [place], [address] , [employer] 3 16:45:46 Cough 99157174 Active 2022 Aditya Castro MD [address], [place], [address] , [employer] 3 12:45:44 Bronchiti s 38239336 Active 2022 Aditya Castro MD [address], [place], [address] , [employer] 3 09:22:50 Allergic rhinitis 99421439 Active 2022 Aditya Castro MD [address], [place], [address] , [employer] 3 09:28:39 Allergic contact dermatiti s 614102045 Active 2022 Aditya Castro MD [address], [place], [address] , [employer] 3 16:06:02 Tinea cruris 054974025 Active 2022 Aditya Castro MD [address], [place], [address] , [place] [facility] 3 16:06:15 Acute bacterial sinusitis 22409279 Active 2023 KATIE Chen [address], [place], [address] , [place] [facility] 4 09:55:25 Ulcer of mouth 21304876 Active 2023 Aditya Castro MD [address], [place], [address] , [place] [facility] 4 09:03:52 Onychomyc osis of toenails 402084071 Active 2023 Chris Linda DPM [address], [place], [address] , [place] [facility] 4 12:24:55 Folliculi tis 76793012 Active 2023 Aditya Castro MD [address], [place], [address] , [place] [facility] 4 10:26:36 Pain of right knee joint 21139233531 4100 Active 2023 Aditya Castro MD [address], [place], [address] , [place] [facility] 4 10:31:07 Bleeding of ear canal 236301420 Active 2023 Aditya Castro MD [address], [place], [address] , [place] [facility] 4 10:40:38 Acute left otitis media 070931380 Active 2023 Rohit Jessica MD [address], [place], [address] , [place] [facility] 4 16:04:39 Thoracic back pain 243455248 Active 2023 Aditya Castro MD [address], [place], [address] , [facility] 4 16:28:59 Pain of right shoulder blade 987229875 Active 2023 Aditya Castro MD [address], [place], [address] , [place] [facility] 4 16:30:04 Degenerat ion of thoracolu mbar intervert ebral disc 05064816 Active 2023 Aditya Castro MD [address], [place], [address] , [facility] 4 16:30:54 Hypothyro idism 86171213 Active 2023 Aditya Castro MD [address], [place], [address] , [facility] 4 16:34:29 Uncontrol led type 2 diabetes mellitus 726507289 Active 2023 Aditya Castro MD [address], [place], [address] , [facility] 4 09:03:03 Bilateral osteoarth ritis of knees 41421218106 9107 Active 2023 Sofia Newby triny, [place] [facility] 4 11:42:16 Pain of left knee joint 22975513481 4107 Active 2023 LESLY Gambino [address], [place], [address] , [facility] 4 13:42:14 Pain in right hip joint 63156673518 9102 Active 2023 KELLE John, [place] [facility] 4 11:11:43 Trochante margarita bursitis of right hip 39956434202 9100 Active 2023 LESLY Gambino [address], [place], [address] , [facility] [employer] [facility] 4 12:00:40 Gallstone 939011793 Active 2023 Aditya Castro MD [address], [place], [address] , [facility] [employer] [facility] 4 11:21:33 Right flank pain 188449995 Active 2023 Aditya Castro MD [address], [place], [address] , [facility] [employer] [facility] 4 11:29:38 Kidney stone 76949251 Active 2023 Aditya Castro MD [address], [place], [address] , [facility] [employer] 4 11:31:01 Notes:blood clots, coronary artery disease, head trauma or injury, kidney disease, seizures, use of blood thinners, balance problems, numbness or tingling, loss of memory, swelling in legs, shortness of breath, muscle pain, back/neck pain, swollen or painful joints, excessive thirst, dry mouth, sleep apnea, wears glasses Some problems listed in Document: #[id number] could not be added to this patient's chart. Please review this document and add these problems to the patient's chart manually as needed. Problem Notes None recorded. Procedures Surgical History Date Name Laterality Status Provider Name and Address Organization Details Recorded Time 05/02/20 24 Nail Debridement completed Chris Linda DPM [address], [place], [address], [facility] [employer] [facility] 05/20/2024 09:31:13 03/11/20 24 Nail Debridement completed Chris Linda DPM [address], [place], [address], [facility] [employer] [facility] 03/11/2024 12:35:50 03/11/20 24 Wound Care-Podiatry completed Chris Linda DPM [address], [place], [address], [facility] [employer] [facility] 03/11/2024 12:34:57 01/08/20 24 Wound Care-Podiatry completed Chris Linda DPM [address], [facility] [address], [place], [address], [facility] 01/08/2024 12:26:31 12/25/19 24 Medicare Wellness CPT Code, subsequent completed Beth LUAN Willis [employer] [facility] 12/25/2023 15:24:37 11/06/19 24 Medicare Wellness CPT Code, subsequent cancelled Beth LUAN Willis [employer] [facility] 11/03/2023 10:10:00 01/08/20 22 SEPTOPLASTY (SURG) completed Not Available [facility] 10/19/2022 01:16:48 01/22/20 21 Cardiac Cath completed Not Available [facility] 023 01:06:21 reduction of nasal turbinate completed Not Available [facility] 10/19/2022 01:06:21 procedure on heart completed Lisa Lopez CNA [employer] [facility] 05/10/2024 11:11:45 Imaging Results Imaging Date Name Status LastModified by Organiz ation Details LastModified Time 05/02/2024 scapula, right completed [facility] (Imaging) [address] [place], [address], 05/07/2024 09:12:00 05/02/2024 XR, thoracic spine, 3 view completed [email or web address] [facility] (Imaging) [address] [place], [address], 05/07/2024 09:12:00 05/10/2024 XR, knee completed [email or web address] [facility] [place] [address], [place], [address], 05/10/2024 13:41:54 06/21/2024 XR, hip + pelvis, unilateral completed [email or web address] [facility] [place] [address], [place], [address], 06/21/2024 12:02:31 07/12/2024 CT, abdomen + pelvis, w/o contrast completed [address], [address], 07/15/2024 11:27:52 07/16/2024 CT, abdomen + pelvis, w/o contrast completed [address], [address], 08/27/2024 14:24:26 08/11/2024 CT, abdomen + pelvis, w/o contrast completed [address], [address], 08/27/2024 14:24:26 09/06/2024 imaging/diagnos tic result active [address], [address], 09/06/2024 12:57:47 Procedure Notes None recorded. Medical Equipment None Reported. Allergies Allergen ID Allergen Name Allergen Category Reaction Reaction Severity Criticality Documentation Date Start Date Code Code System Note Provider Name and Address Organization Details Recorded Time 1834 Iodinated contrast media (substanc e) medicatio n rash severe Not available 10/19/2022 68394 2004 SNOMED Not Available [facility] 3 01:16:23 1835 Brilinta medicatio n rash severe Not available 10/19/2022 13348 36 RxNorm Not Available [facility] 3 01:16:23 1836 allopurin ol medicatio n other severe Not available 10/19/2022 519 RxNorm Not Available [facility] 3 01:16:23 Medications Name Sig Start Date [...] ne 5 mg-acetam inophen 325 mg tablet 03/11 completed Not Available [...] valacyclo vir [address] Joshua jamison Not Available Not Available Not Available omeprazol [...] Available warfarin [address] Shannon jamison Not Available Not Available Not Available ketorolac [...] Available Not Available Flarex 0.1 % eye drops,[facility] 09/06 completed Not Available Not Available Not [...] Available prednisol one acetate 1 % eye drops,[facility] 03/08 completed Not Available Not Available Not Available torsemide 100 mg tablet Take 1 tablet every day by oral route as directed . [address] Eric kirk es Not Available Not Available Not Available terazosin [...] mg by injectio n route. 2023 active [facility]: [id number] 12-08 Not Available Not Available Not Available nifedipin [...] l 0.[address] Eric jamison Not Available Not Available Not Available amoxicill [...] in a dropperet te active Dr. Joshua jamison Not Available Not Available Not Available [employer] [...] Available [employer] Pen Needle 32 gauge x / active Not Available Not Available Not Available [...] Updated DateTime 05/10/2024 177.8 cm 37.4 kg/m2 955061.61 g KELLE John Checkr 05/10/2024 11:09:01 Date Recorded Body height Body mass index (BMI) Body weight Body temperature Heart rate Oxygen saturation Oxygen saturation in Arterial blood by Pulse oximetry Systolic blood pressure Diastolic blood pressure Provider Name and Address Organization Details Last Updated DateTime 177.8 cm 38 kg/m2 087169. 98 g 98.4 [degF] 70 /min 99 % 99 % 148 mm[Hg] 80 mm[Hg] Montana Gil [employer] [facility] 4 15:51:21 Date Recorded Respiratory rate Provider Name a nd Address Organization Details Last Updated DateTime 05/21/2024 20 /min Lisa Gonzáles [address] [facility], [facility] [address], [place], [address], [employer] [facility] 05/21/2024 16:17:14 Date Recorded Body height Body mass index (BMI) Body weight Provider Name and Address Organization Details Last Updated DateTime 06/21/2024 177.8 cm 37.9 kg/m2 351976.39 g Lisa KELLE Lopez [employer] [facility] 06/21/2024 11:11:01 Date Recorded Body height Body mass index (BMI) Body weight Body temperature Heart rate Oxygen saturation Oxygen saturation in Arterial blood by Pulse oximetry Systolic blood pressure Diastolic blood pressure Provider Name and Address Organization Details Last Updated DateTime 4 177.8 cm 38 kg/m2 078849. 19 g 97.3 [degF] 72 /min 97 % 97 % 150 mm[Hg] 78 mm[Hg] Lucinda Fletcher RN [employer] [facility] 4 11:26:31 Date Recorded Respiratory rate Provider Name a nd Address Organization Details Last Updated DateTime 07/15/2024 22 /min Lisa Gonzáles [address] [facility], [facility] [address], [place], [address], [employer] [facility] 07/15/2024 12:05:38 Date Recorded Body height Body mass index (BMI) Body weight Body temperature Heart rate Systolic blood pressure Diastolic blood pressure Provider Name and Address Organization Details Last Updated DateTime 5 177.8 cm 38.6 kg/m2 834548. 1 g 97.2 [degF] 78 /min 140 mm[Hg] 70 mm[Hg] Jessica Macedo RN [employer] 5 14:22:23 Date Recorded Oxygen saturation Oxygen saturation in Arterial blood by Pulse oximetry Provider Name and Address Organization Details Last Updated DateTime 08/27/2024 95 % 95 % Aditya Castro MD [address], [facility] [address], [place], [address], [place] [facility] 08/27/2024 14:24:24 Social History Question Answer Notes LastModified by Organization Details LastModified Time Tobacco Smoking Status Never Smoker Not Available [facility] 10/19/2022 01:04:37 Do You Have An Advance Directive? No MIGRATION.0301 [id number] Information not available 10/19/2022 What Is Your Level Of Alcohol Consumption? None MIGRATION.0301 185125 Information not available 10/19/2022 Are You Blind Or Do You Have Difficulty Seeing? No MIGRATION.0301 [id number] Information not available 10/19/2022 Is Blood Transfusion Acceptable In An Emergency? Yes Information not available 12/07/2023 What Is Your Level Of Caffeine Consumption? Occasional MIGRATION.0301 087184 Information not available 10/19/2022 How Much Tobacco Do You Chew? None MIGRATION.0301 [id number] Information not available 10/19/2022 What Is Your Code Status? Full Code Information not available 12/07/2023 In The 14 Days Before Symptom Onset, Have You Had Close Contact With A Laboratory-confi rmed COVID-19 While That Case Was Ill? No MIGRATION.0301 239773 Information not available 10/19/2022 In The 14 Days Before Symptom Onset, Have You Had Close Contact With A Person Who Is Under Investigation For COVID-19 While That Person Was Ill? No MIGRATION.0301 [id number] Information not available 10/19/2022 Are You Deaf Or Do You Have Serious Difficulty Hearing? No MIGRATION.0301 [id number] Information not available 10/19/2022 What Type Of Diet Are You Following? CARDIAC And Renal MIGRATION.0301 078315 Information not available 10/19/2022 Which Illicit Or Recreational Drugs Have You Used? NONE MIGRATION.0301 [id number] Information not available 10/19/2022 Do You Or Have You Ever Used E-cigarettes Or Vape? Never Used Electronic Cigarettes MIGRATION.0301 134585 Information not available 10/19/2022 What Is The Highest Grade Or Level Of School You Have Completed Or The Highest Degree You Have Received? [id number] 2 Years MIGRATION.0301 220297 Information not available 10/19/2022 What Is Your Occupation? DISABLED MIGRATION.0301 [id number] Information not available 10/19/2022 Have There Been Any Changes To Your Family Or Social Situation? No Information not available 12/07/2023 Are There Any Guns Present In Your Home? No MIGRATION.0301 [id number] Information not available 10/19/2022 Do You Use Insect Repellent Routinely? No Information not available 12/07/2023 Where Do You Live? SingleLevelHouse Information not available 12/07/2023 Advance Directive- Providers Has Reviewed Directive And Consents To Follow Them (insert Provider Name With Any Objectives In Notes Field) No MIGRATION.0301 [id number] Information not available 10/19/2022 Presence Of Domestic [...] Do You Have A Medical Power Of Creche Attendant? No Information not available 12/07/2023 What Was The Date Of Your Most Recent Tobacco Screening? 12/25/2023 [email or web address] Information not available 12/25/2023 Do You Have Any Pets? Yes Information not available 12/07/2023 What Is Your Relationship Status? Single MIGRATION.0301 [id number] Information not available 10/19/2022 Do You Use Your Seat Belt Or Car Seat Routinely? Yes MIGRATION.0301 763007 Information not available 10/19/2022 Do You Have Smoke And Carbon Monoxide Detectors In Your Home? Yes Information not available 12/07/2023 Are You Passively Exposed To Smoke? No Information not available 12/07/2023 Do You Or Have You Ever Used Smokeless Tobacco? Never Used Smokeless Tobacco MIGRATION.0301 678694 Information not available 10/19/2022 Are There Any Smokers In Your House? No Information not available 12/07/2023 Do You Feel Stressed (tense, Restless, Nervous, Or Anxious, Or Unable To Sleep At Night)? [id number] MIGRATION.0301 [id number] Information not available 10/19/2022 Do You Use Sunscreen Routinely? No Information not available 12/07/2023 Have You Recently Traveled Abroad? No MIGRATION.0301 461609 Information not available 10/19/2022 Are You Currently In School? No MIGRATION.030 840331 Information not available 10/19/2022 Sex: Unknown Functional Status Question Answer Note LastModified by [employer] Details LastModified Time Do you have difficulty walking or climbing stairs? No MIGRATION.[id number] 26 Information not available 10/19/2022 Do you have difficulty doing errands alone? No MIGRATION.[id number] 26 Information not available 10/19/2022 Do you have difficulty dressing or bathing? No MIGRATION.52067501 26 Information not available 10/19/2022 What is your exercise level? Occasional MIGRATION.[id number] 26 Information not available 10/19/2022 Mental Status Question Answer Note LastModified by [employer] Details LastModified Time Do you have difficulty concentrating, remembering or making decisions? No MIGRATION.[id number] 6 Information not available 10/19/2022 Family History Relationship Description Onset Age of this Age Resolved Age Notes LastModified by Organization Details LastModified Time Father Heart disease MIGRATION.176 [id number] Not available 10/19/2022 01:06:25 Father Hypertensive disorder MIGRATION.826 [id number] Not available 10/19/2022 01:06:25 Notes:cancer-mother NO ENT [...] virus, quadrivalent, PF 3 completed BERNARDO Reddy [place] [employer] 07/03/2023 11:25:39 pneumococcal polysaccharide PPV23 0 completed Not Available [facility] 10/19/2022 01:16:16 Tdap 0 completed Not Available [facility] 10/19/2022 01:16:16 Influenza, split virus, quadrivalent, PF 9 completed Not Available [facility] 10/19/2022 01:16:16 Influenza, split virus, quadrivalent, PF 2 completed Not Available [facility] 10/19/2022 01:16:16 Influenza, split virus, quadrivalent, PF 1 completed Not Available [facility] 10/19/2022 01:16:16 Past Encounters Encounter ID Performer Location Encounter Start Date Encounter Closed Date Diagnosis/Indication Diagnosis SNOMED-CT Code Diagnosis ICD10 Code Diagnosis Note [id number] [facility]_[address] [address] 10/27/2020 00:00:00 10/27/2020 10:48:[id number] [address] 03/08/2021 00:00:00 03/08/2021 17:34:39 [id number] _SAMANTHA_Lisa IGRATION_ DEFAULT_1 _1 , 03/22/2021 00:00:00 03/22/2021 20:53:26 [id number] [facility] [address] [place] [address] 06/08/2021 00:00:00 06/09/2021 09:19:54 [id number] [facility] [address] [place] [address] 06/22/2021 00:00:00 06/22/2021 16:14:11 [id number] [facility] [address] [place] [address] 06/29/2021 00:00:00 06/29/2021 12:04:58 [id number] [facility] [address] [place] [address] 07/22/2021 00:00:00 07/22/2021 10:59:05 [id number] [facility] [address] [place] [address] 09/09/2021 00:00:00 09/09/2021 17:59:48 [id number] [facility] [address] [place] [address] 10/05/2021 00:00:00 10/05/2021 16:51:40 [id number] [facility] [place] [address] [place] [address] 10/12/2021 00:00:00 10/12/2021 16:03:48 [id number] [facility] [place] [address] [place] [address] 11/18/2021 00:00:00 11/18/2021 15:39:06 [id number] _ATHENA_M IGRATION_ DEFAULT_1 _1 , 12/20/2021 00:00:00 01/15/2022 22:33:55 [id number] [facility] [place] [address] [place] [address] 12/28/2021 00:00:00 12/28/2021 11:10:02 [id number] [facility] [place] [address] [place] [address] 01/18/2022 00:00:00 01/18/2022 16:24:34 [id number] [facility] [place] [address] [place] [address] 01/25/2022 00:00:00 01/25/2022 15:00:07 [id number] [facility] [place] [address] [place] [address] 02/17/2022 00:00:00 02/17/2022 15:06:30 [id number] [facility] [address] [facility] [place] [address] 03/29/2022 00:00:00 03/29/2022 10:58:26 [id number] [facility] [place] [address] [place] [address] 05/12/2022 00:00:00 05/12/2022 14:21:01 [id number] _ATHENA_M IGRATION_ DEFAULT_1 _1 , 05/16/2022 00:00:00 05/16/2022 16:50:12 [id number] [facility] [place] [address] [facility] [place] [address] 07/13/2022 00:00:00 07/13/2022 17:28:54 [id number] [facility] [place] [address] [facility] [place] [address] 09/06/2022 00:00:00 09/06/2022 15:23:36 [id number] [facility] [place] [address] [facility] [place] [address] 10/11/2022 00:00:00 10/11/2022 17:27:53 [id number] Aditya Castro MD [facility] [address] [facility] [place] [address] 11/01/2022 09:46:21 11/01/2022 10:14:11 [id number] Aditya Castro MD [address] [address] 11/08/2022 15:47:51 11/08/2022 16:30:48 Vitamin D deficiency 75173319 E55.9 Gout 77578801 M10.9 Hyperparathyroidism 6699 9008 E21.3 Uncontroll ed type 2 diabetes mellitus 405289275 E11.65 Hypertriglyceridemia 302 774550 E78.2 Hyperlipidemia 91535824 E78.5 Chronic constipation 236 589629 K59.09 Obesity 504176722 E66.9 [id number] Aditya Castro MD [address] [address] 01/23/2023 09:08:48 01/23/2023 09:38:23 Bronchitis 32667580 J40 Cough 90004610 R05.9 Chronic ki dney disease stage 5 223689364 N18.5 Allergic rhinitis 476044 04 J30.9 Vitamin D deficiency 347 25132 E55.9 [id number] Aditya Castro MD [address] [address] 06/27/2023 15:52:59 06/27/2023 16:15:54 Allergic contact dermatitis 555625862 L23.9 Tinea cruris 182158024 B 35.6 Administra tion of influenza vaccine 04272194 Z23 Chronic low back pain 27 5283845 M54.59 Gout 33144510 M10.9 [id number] Aditya Castro MD [address] [address] 07/10/2023 15:50:39 07/10/2023 16:20:39 Vitamin D deficiency 90417185 E55.9 Gout 76123666 M10.9 Hyperparathyroidism 6699 9008 E21.3 Uncontroll ed type 2 diabetes mellitus 184361238 E11.65 Hypertriglyceridemia 302 314567 E78.2 Hyperlipidemia 74868062 E78.5 Chronic constipation 236 425273 K59.09 Obesity 006768508 E66.9 Bronchitis 60929736 J40 [id number] KATIE Chen [address] [address] 12/07/2023 09:26:05 12/07/2023 11:06:01 Acute bacterial sinusitis 36903544 J01.90 Add humidifcat ion to bedroom at night [id number] Aditya Castro MD [address] [address] 12/25/2023 15:06:36 12/25/2023 16:45:08 Gout 74694494 M10.9 Vitamin D deficiency 347 10085 E55.9 Hyperparathyroidism 6699 9008 E21.3 Uncontroll ed type 2 diabetes mellitus 184030523 E11.65 Hypertriglyceridemia 302 868230 E78.2 Hyperlipidemia 18435030 E78.5 Chronic constipation 236 653300 K59.09 Obesity 359776676 E66.9 Bronchitis 07574629 J40 Adult heal th examination 878031217 Z00.00 Screening for disorder 596167960 Z13.9 Ulcer of mouth 25115528 K12.1 Screening for malignant neoplasm of prostate 054271269 Z12.5 [id number] Chris Linda DPM [facility] [place] [address] [place] [address] 01/08/2024 11:55:29 01/11/2024 12:25:06 Onychomycosis of toenails 571265819 B35.1 educated on conditiont opical antifungal Rxfollow-u p in 1-2 months Blister of toe without infection 08637555 S90.424A right 3rd toeMonitor for infection dailyBetad ine wet-to-dry dressings dailyfollo w-up 1 week Diabetic p eripheral neuropathy 273345529 E11.40 Patient educated on neuropathy , diabetes, diabetic diet, and daily foot exams. Patient is to check feet daily for new wounds, blisters, redness to prevent infection and ulceration s to the feet. Patient will return to clinic in 3 months for diabetic foot workup. Dystrophia unguium 21501 009 L60.3 nails debrided without incident [id number] Aditya Castro MD [facility] [address] 02/15/2024 10:01:48 02/15/2024 10:47:11 Gout 87461717 M10.9 Vitamin D deficiency 347 35747 E55.9 Hyperparathyroidism 6699 9008 E21.3 Uncontroll ed type 2 diabetes mellitus 940658932 E11.65 Hypertriglyceridemia 302 839171 E78.2 Hyperlipidemia 35579718 E78.5 Chronic constipation 236 310413 K59.09 Obesity 841261134 E66.9 Bronchitis 96647101 J40 Folliculitis 60373135 L7 3.9 Seborrheic dermatitis of scalp 708974158 L21.0 Pain of ri ght knee joint 6400813900 58125 M25.561 Bleeding of ear canal 30 8589074 H92.22 [id number] Rohit Jessica MD [facility] [place] [address] [place] [address] 02/15/2024 15:35:10 02/16/2024 12:44:58 Acute left otitis media 879105984 H66.92 [id number] Chris Linda DPM [facility] [place] [address] [place] [address] 03/11/2024 12:07:37 03/12/2024 16:35:57 Blister of foot without infection 2644929 S90.821A right foot medial 1st metatarsop halangeal jointofflo adingwound care daily until healedfoll ow-up 10 days Blister of toe without infection 98870312 S90.425A left 4th toetriple antibiotic ointment and Band-Aid appliedwou nd care as above Diabetes mellitus 857199 09 E13.9 Continue diabetic control per PCP recommenda tion Diabetic p eripheral neuropathy 756608744 E11.40 Patient educated on neuropathy , diabetes, diabetic diet, and daily foot exams. Patient is to check feet daily for new wounds, blisters, redness to prevent infection and ulceration s to the feet. Patient will return to clinic in 3 months for diabetic foot workup.con tinue diabetic shoe gear Dystrophia unguium 65507 009 L60.3 nails debrided without incident [id number] Aditya Castro MD [facility] [place] [address] [place] [address] 04/16/2024 16:08:23 04/16/2024 17:22:18 Thoracic back pain 244614422 M54.6 Pain of ri ght shoulder blade 738871134 M25.511 Degenerati on of thoracolumbar intervertebral disc 28637226 M51.35 Hypothyroidism 18586542 E03.9 Obesity 816633141 E66.9 End stage renal failure on dialysis 697091095 N18.6 Chronic low back pain 27 8066516 M54.59 [id number] Chris Linda DPM [facility] [place] [address] [place] [address] 05/02/2024 10:29:22 05/20/2024 11:32:52 Onychomycosis of toenails 188282880 B35.1 right great toenailsch eduled total nail avulsionRe viewed treatment optionsFol low-up for procedure Right great toenail avulsion scheduled 07/15/2024 Peripheral venous insufficiency 35669838 I87.2 Rx compressio n stockings 20 30 mm Hgelevatio n when at restmonito r for signs of DVT at present seek medical attention immediatel y Dystrophia unguium 79252 009 L60.3 nails debrided without incident Abrasion a nd/or friction burn of skin 313496041 T14.8XXA healed abrasions x4 left lower leg Diabetic p eripheral neuropathy 047120278 E11.40 Patient educated on neuropathy , diabetes, diabetic diet, and daily foot exams. Patient is to check feet daily for new wounds, blisters, redness to prevent infection and ulceration s to the feet. Patient will return to clinic in 3 months for diabetic foot workup.con tinue diabetic shoe gear [id number] Aditya Castro MD [facility] [place] [address] [place] [address] 05/07/2024 09:01:36 05/07/2024 09:40:15 Gout 64527849 M10.9 Vitamin D deficiency 347 84919 E55.9 Hyperparathyroidism 6699 9008 E21.3 Uncontroll ed type 2 diabetes mellitus 171402254 E11.65 Hypertriglyceridemia 302 301608 E78.2 Hyperlipidemia 22291067 E78.5 Chronic constipation 236 687411 K59.09 Obesity 652636521 E66.9 Pain of ri ght knee joint 5346688911 93728 M25.561 Chronic Screening for malignant neoplasm of prostate 517857419 Z12.5 Chronic back pain 828643 002 G89.29 Screening colonoscopy 44 4988948 Z12.11 [id number] LESLY Gambino [facility] [place] [address] [place] [address] 05/10/2024 10:46:13 05/10/2024 11:48:23 Pain of right knee joint 1540091291 25803 M25.561 Bilateral osteoarthritis of knees 9500521288 33558 M17.0 Pain of le ft knee joint 0075788807 60194 M25.766 [id number] Aditya Castro MD [facility] [address] 05/21/2024 15:45:57 05/21/2024 16:21:32 Gout 91244895 M10.9 Vitamin D deficiency 347 34879 E55.9 Uncontroll ed type 2 diabetes mellitus 054859032 E11.65 Hypertriglyceridemia 302 155065 E78.2 Hyperlipidemia 16053393 E78.5 Chronic constipation 236 408176 K59.09 Obesity 646450252 E66.9 Pain of ri ght knee joint 0731306083 91469 M25.561 Chronic Chronic back pain 143417 002 G89.29 [id number] LESLY Gambino [facility] [place] [address] [place] [address] 06/21/2024 11:06:53 06/21/2024 11:57:45 Bilateral osteoarthritis of knees 6105417826 73723 M17.0 Pain of ri ght knee joint 8208254230 10824 M25.561 Pain of le ft knee joint 0840356617 31197 M25.562 Pain in ri ght hip joint 5148416155 50008 M25.551 Trochanter ic bursitis of right hip 8890472026 20182 M70.61 [id number] Aditya Castro MD [address] [address] 07/15/2024 10:53:35 07/15/2024 12:16:54 Chronic constipation 974419898 K59.09 Chronic back pain 352004 002 G89.29 Obesity 327618726 E66.9 [facility]en in [facility] 840203187 Z76.89 Gallstone 800061361 K80. 20 Right flank pain 5682402 09 R10.9 Kidney stone 46404202 N2 0.0 Rt Impaired mobility 297598 05 Z74.09 Due to pain [id number] Aditya Castro MD [address] [address] 08/27/2024 14:12:33 08/27/2024 14:51:01 Right flank pain 377333247 R10.9 Kidney stone 97695975 N2 0.0 Rt Gallstone 435967059 K80. 20 Chronic constipation 236 641742 K59.09 Chronic back pain 842477 002 G89.29 Impaired mobility 453468 05 Z74.09 Due to pain Obesity 598262942 E66.9 Hospital i npatient stay within past 30 days 7224501580 106 Z76.89 Gout 28040644 M10.9 Gastroesop hageal reflux disease without esophagitis 182782382 K21.9 End-stage renal disease 69391691 N18.6 History of deep vein thrombosis 049480257 Z86.718 Hyperlipidemia 39721056 E78.5 Hypertriglyceridemia 302 041684 E78.2 Health Concerns Section Related Observation LastModified by Organization Detai ls LastModified Time None Recorded Concern Status LastModified by Organization Details LastModified Time None Recorded Advance Directives Directive N: Payers Encounter Date Sequence Insurance Name Policy Number Policy Ge Covered Member ID Ge Member ID Guarantor Name 05/10/2024 2 [place]ARE OR MEDICARE REPLACEMENT PRIMARY) Juvenal Daigle [id number] Juvenal Daigle 05/10/[address] [facility] (MEDICARE REPLACEMENT/AD VANTAGE - PPO) [id number] Juvenal Vargasdre [id number] Juvenal Vargasbe 05/21/2024 2 [place] OR [place]ICARE REPLACEMENT PRIMARY) Juvenal Rodriguez Pilo [id number] Juvenal Sambe 05/21/[address] [facility] (MEDICARE REPLACEMENT/AD VANTAGE - PPO) [id number] Juvenal Rodriguez Pilo [id number] Juvenal Vargasbe 06/21/2024 2 [place] OR MEDICARE REPLACEMENT PRIMARY) Juvenalfabi Daigle [id number] Juvenal Vargasbe 06/21/[address] [facility] (MEDICARE REPLACEMENT/AD VANTAGE - PPO) [id number] Juvenal Michael Pilo [id number] Juvenalfabi Vargasbe 07/15/2024 2 [place] WHEN [place] OR MEDICARE REPLACEMENT PRIMARY) Juvenal Michael Pilo [id number] Juvenal Vargasbe 07/15/[address] [facility] (MEDICARE REPLACEMENT/AD VANTAGE - PPO) [id number] Juvenal Daigle [id number] Juvenal Sambe 08/27/2024 2 [place] WHEN [place] OR MEDICARE REPLACEMENT PRIMARY) Juvenal Rodriguez Pilo [id number] Juvenal Vargasbe 08/27/[address] [facility] (MEDICARE REPLACEMENT/AD VANTAGE - PPO) [id number] Juvenal Daigle [id number] Juvenal Daigle Notes Date Note Type Note Provider Name and Address Organization Details Recorded Time 05/10/2024 text/html The patient is a 53-year-old [...] today with the patient. LESLY Gambino [address] [facility], [place], [address], [place] - [facility] 05/10/2024 13:42:57 05/21/2024 text/html Pt is here [...] Pt is also f/u with Nephro at [place] for kidney transplant team.Pt is f/u with Endo for his DM and hyperparathyroidism.Pt has seen Derm at [facility] for his multiple moles and no concerns [...] has not worked. Aditya Castro MD [address] [facility] [address], [place], [address], [place] - [facility] 05/21/2024 16:20:25 06/21/2024 text/html The patient retu [...] the groin with weight-bearing. LESLY Gambino [address], [facility] [address], [place], [address], [employer] [facility] Checkr 06/21/2024 12:03:04 07/15/2024 text/html ACV:ED fuv. C/o [...] Endo and Cardio regularly. Aditya Castro MD [address], [facility] [address], [place], [address], [place] 07/15/2024 12:12:12 08/27/2024 text/html ACV:Hospital fuv . Pt was admitted to [place] from 08/17/24 to 08/19/24 due to hematuria, pneumonia and hyperkalemia. He has finished all his meds and he is feeling much better now. Pt is requesting Rx for bedside commode and marcelo hose stockings. Pt will be seeing Surg for his gallstones next week. Pt is f/u with Uro at [place] for his kidney stones and hematuria. Pt has chronic back pain for last several years and was seeing Pain clinic and Spine surgeon for it in the past; but he has not seen them for last couple years. Pt is f/u with Nephro, Endo and Cardio regularly. Aditya Castor MD [address], [facility] [address], [place], [address], [employer] [facility] Checkr 08/27/2024 15:24:37
--- OUTSIDE RECORDS SUMMARY | 2024-09-07 18:56 | XMS_ITS | Continuity of Care Document ---
Author Organization [place] - [facility], [facility] [place] Address [address] [place] [address] Care Team Providers Care Account Liaison Name Role Phone ADITYA CASTRO Primary Care [...] DO Not Attach Compendium, Do Not Delete/merge, [id number] 06/21/2024 11:43:13 Surgeries None recorded. Imaging XR, hip + pelvis, unilatera l 2023 024 [email or web address] [facility] [place], [facility], [place], [address], 06/21/2024 12:02:32 Medication Orders bupivacai ne HCl 0.5 % (5 mg/mL) injection solution 2023 024 [email or web address] [facility][id number], [address], [place], [id number], 06/21/2024 11:52:35 Kenalog 10 mg/mL suspensio n for injection 2023 024 [id number] [facility] #[id number], [address], [place], [id number], 07/12/2024 21:17:10 Patient TargetsNo targets recorded. Patient InstructionsNo instructions recorded. Reason for Referral None Reported. Results Created Date Observation Date Name Description Value Unit Range Abnormal Flag Note LastModifiedBy Organization Detail LastModifiedTime 06/21/20 24 XR, hip + pelvi s, unila teral No observ ation record ed. [email or web address] [facility] [place] [address], [place], [address], 06/21/2024 12:02:31 07/12/20 24 07/12/2024 CT, abdom en + pelvi s, w/o contr ast No observ ation record ed. [address], [place], [address], 07/15/2024 11:27:52 07/16/20 24 07/16/2024 CT, abdom en + pelvi s, w/o contr ast No observ ation record ed. [address], [place], [address], 08/27/2024 14:24:26 08/11/20 24 08/11/2024 CT, abdom en + pelvi s, w/o contr ast No observ ation record ed. [address], [place], [address], 08/27/2024 14:24:26 09/06/19 25 09/06/2024 imagi ng/di agnos tic resul t No observ ation record ed. [address], [place], [address], 09/06/2024 12:57:47 Result Notes None recorded. 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 327677885 Active 2017 Not Available [facility] 3 01:10:47 Chronic back pain 452804923 Active 2022 Not Available [facility] 3 01:10:47 Hyperchol esterolem ia 79221627 Active 2017 Not Available [facility] 3 01:10:47 Seborrhei c dermatiti s of scalp 857972193 Active 2022 Not Available [facility] 3 01:10:47 Chronic physical disabilit y 428066305 Active 2018 Not Available [facility] 3 01:10:47 History of deep vein thrombosi s 487789717 Active 2017 Not Available [facility] 3 01:10:47 Heartburn 00679811 Active 2017 Not Available [facility] 3 01:10:47 Ultrasoun d scan abnormal 008465412 Active 2020 Not Available [facility] 3 01:10:47 Hypertrop hy of nasal turbinate s 92800146 Active 2021 Not Available [facility] 3 01:10:47 Sensorine ural hearing loss of bilateral ears 024672682 Active 2021 Not Available [facility] 3 01:10:47 Periphera l venous insuffici ency 49179182 Active 2020 Not Available [facility] 3 01:10:47 Myocardia l infarctio n 03253361 Completed 201705/08/2018 Not Available [facility] 3 01:10:48 Stable angina 210987888 Active 2017 Not Available [facility] 3 01:10:48 End stage renal failure on dialysis 149835501 Active 2019 Not Available [facility] 3 01:10:48 Degenerat ion of lumbar intervert ebral disc 78867352 Active 2018 Not Available [facility] 3 01:10:48 Gastroeso phageal reflux disease without esophagit is 436431382 Active 2017 [facility] Available [facility] 3 01:10:48 Anemia 769589081 Active 2017 Not Available [facility] 3 01:10:48 Chronic low back pain 084530818 Active 2018 Not Available [facility] 3 01:10:48 Pain in toe 094148063 Active 2018 Not Available [facility] 3 01:10:48 Pain in toe 949693591 Active 2018 Not Available [facility] 3 01:10:48 Right upper quadrant pain 314123761 Active 2020 Not Available [facility] 3 01:10:48 Type 2 diabetes mellitus without complicat ion 325039766 Completed 201701/10/2019 Not Available [facility] 3 01:10:48 Pain in left foot 57371693665 9107 Active 2019 Not Available [facility] 3 01:10:48 Vitamin D deficienc y 96307570 Active 2017 Not Available [facility] 3 01:10:49 Seasonal allergic rhinitis 831096432 Active 2017 Not Available [facility] 3 01:10:49 Sinusitis 97301075 Active 2021 Not Available [facility] 3 01:10:49 Hypertens bianca disorder 85463567 Active 2017 Not Available [facility] 3 01:10:49 Osteoarth ritis 236967683 Active 2019 Not Available [facility] 3 01:10:49 Umbilical hernia 180256161 Active 2018 Not Available [facility] 3 01:10:49 Vertigo 420271263 Active 2021 Not Available [facility] 3 01:10:49 Abrasion and/or friction burn of skin 821075657 Active 2018 Not Available [facility] 3 01:10:49 Chronic sinusitis 64130375 Active 2021 Not Available [facility] 3 01:10:49 Multiple benign melanocyt ic nevi 712809630 Active 2017 Not Available [facility] 3 01:10:50 Deep venous thrombosi s of lower extremity 659925831 Active 2022 Not Available [facility] 3 01:10:50 Dizziness 570006903 Active 2017 Not Available [facility] 3 01:10:50 Dysphagia 13853036 Active 2021 Not Available [facility] 3 01:10:50 Obesity 288162812 Active 2017 Not Available [facility] 3 01:10:50 Ketoacido sis due to type 1 diabetes mellitus 685677058 Active 2019 Not Available [facility] 3 01:10:50 Nausea 420254377 Active 2021 Not Available [facility] 3 01:10:50 Congestiv e heart failure 27175272 Active 2017 Not Available [facility] 3 01:10:50 Diabetic periphera l neuropath y 503442198 Active 2017 Not Available [facility] 3 01:10:51 Asymmetri nikos hearing loss 340599693 Active 2021 Not Available [facility] 3 01:10:51 Chronic kidney disease stage 4 353662857 Completed 201707/29/2020 Not Available [facility] 3 01:10:51 Chronic kidney disease stage 5 100026390 Active 2019 Not Available [facility] 3 01:10:51 Uncontrol led type 2 diabetes mellitus 810428780 Completed 201705/16/2019 Aditya Castro MD [address] [place] [address], [place], [address] , [facility] 4 09:03:03 Gastritis 7687509 Active 2021 Not Available [facility] 3 01:10:51 End-stage renal disease 45967341 Active 2019 Not Available [facility] 3 01:10:51 Type 1 diabetes mellitus 01772389 Active 2018 Not Available [facility] 3 01:10:52 Atrial fibrillat ion 44798520 Active 2017 Not Available [facility] 3 01:10:52 Hyperlipi demia 00617302 Active 2017 Not Available [facility] 3 01:10:52 Heart disease 55370602 Active 2017 Not Available [facility] 3 01:10:52 Hyperpara thyroidis m 69878337 Active 2018 Not Available [facility] 3 01:10:52 Nasal congestio n 91813462 Active 2021 Not Available [facility] 3 01:10:52 Diabetes mellitus 24193757 Active 2017 Not Available [facility] 3 01:10:52 Obstructi ve sleep apnea syndrome 62979839 Active 2018 Not Available [facility] 3 01:10:53 Epigastri c pain 57397610 Active 2021 Not Available [facility] 3 01:10:53 Chronic idiopathi c constipat ion 15840843 Active 2020 Not Available [facility] 3 01:10:53 Corneal abrasion 11322486 Active 2018 Not Available [facility] 3 01:10:53 Dystrophi a unguium 62991497 Active 2018 Not Available [facility] 3 01:10:53 Gout 06699634 Active 2017 Not Available [facility] 3 01:10:53 Chronic renal failure 77385371 Completed 201705/08/2018 Not Available [facility] 3 01:10:54 Skin lesion 46437366 Active 2017 Not Available [facility] 3 01:10:54 Hypertrig lyceridem ia 157701142 Active 2022 Aditya Castro MD [address], [place], [address] , [email or web address] [facility] 3 16:04:08 Chronic constipat ion 711970019 Active 2022 Aditya Castro MD [address], [place], [address] , [facility] [place] [facility] 3 16:45:46 Cough 75539500 Active 2022 Aditya Castro MD [address], [place], [address] , [email or web address] [facility] [facility] 3 12:45:44 Bronchiti s 90115780 Active 2022 Aditya Castro MD [address], [place], [address] , [email or web address] [facility] [employer] [facility] 3 09:22:50 Allergic rhinitis 63059054 Active 2022 Aditya Castro MD [address], [place], [address] , [email or web address] [facility] 3 09:28:39 Allergic contact dermatiti s 869362232 Active 2022 Aditya Castro MD [address], [place], [address] , [email or web address] [facility] 3 16:06:02 Tinea cruris 340259652 Active 2022 Aditya Castro MD [address], [place], [address] , [email or web address] [facility] 3 16:06:15 Acute bacterial sinusitis 48793562 Active 2023 KATIE Chen [address], [place], [address] , [facility] [employer] [facility] 4 09:55:25 Ulcer of mouth 53175057 Active 2023 Aditya [place] MD [address], [place], [address] , [facility] [place] [facility] 4 09:03:52 Onychomyc osis of toenails 895149780 Active 2023 Chris Linda DPM [address] [address], [place], [address] , [facility] [place] [facility] 4 12:24:55 Folliculi tis 40587229 Active 2023 Aditya Castro MD [address], [address] [address], [place], [address] , [facility] 4 10:26:36 Pain of right knee joint 85509713974 4100 Active 2023 Aditya Castro MD [address], [address], [address] , [facility] 4 10:31:07 Bleeding of ear canal 779086852 Active 2023 Aditya Castro MD [address], [address] [address], [place], [address] , [facility] 4 10:40:38 Acute left otitis media 970499402 Active 2023 Rohit Jessica MD [address], [address], [address] , [facility] 4 16:04:39 Thoracic back pain 454878659 Active 2023 Aditya [place] MD [address] [address], [place], [address] , [facility] 4 16:28:59 Pain of right shoulder blade 593385067 Active 2023 Aditya Castro MD [address] [address], [place], [address] , [facility] [place] [facility] 4 16:30:04 Degenerat ion of thoracolu mbar intervert ebral disc 84863718 Active 2023 Aditya Castro MD [address], [place], [address] , [place] [facility] 4 16:30:54 Hypothyro idism 56537474 Active 2023 Aditya Castro MD [address], [place], [address] , [place] [facility] 4 16:34:29 Uncontrol led type 2 diabetes mellitus 525925172 Active 2023 Aditya Castro MD [address], [place], [address] , [place] [facility] 4 09:03:03 Bilateral osteoarth ritis of knees 16739664097 9107 Active 2023 Sofia Newby triny, [place] [facility] 4 11:42:16 Pain of left knee joint 91919329760 4107 Active 2023 LESLY Gambino [address], [place], [address] , [place] [facility] [place] [facility] 4 13:42:14 Pain in right hip joint 84109545418 9102 Active 2023 KELLE John, [place] [facility] 4 11:11:43 Trochante margarita bursitis of right hip 40590985338 9100 Active 2023 LESLY Gambino [address], [place], [address] , [place] [facility] 4 12:00:40 Gallstone 983193741 Active 2023 Aditya Castro MD [address], [address], [place], [address] , [place] [facility] 4 11:21:33 Right flank pain 741000620 Active 2023 Aditya Castro MD [address], [place], [address] , [place] [facility] 4 11:29:38 Kidney stone 09806038 Active 2023 Aditya Castro MD [address], [place], [address] , [facility] 4 11:31:01 Notes:blood clots, coronary artery disease, head trauma or injury, kidney disease, seizures, use of blood thinners, balance problems, numbness or tingling, loss of memory, swelling in legs, shortness of breath, muscle pain, back/neck pain, swollen or painful joints, excessive thirst, dry mouth, sleep apnea, wears glasses Some problems listed in Document: #[id number] could not be added to this patient's chart. Please review this document and add these problems to the patient's chart manually as needed. Problem Notes None recorded. Procedures Surgical History Date Name Laterality Status Provider Name and Address Organization Details Recorded Time 05/02/20 24 Nail Debridement completed Chris Linda DPM [address], [place], [address], [facility] 05/20/2024 09:31:13 03/11/20 24 Nail Debridement completed Chris Linda DPM [address], [place], [address], [facility] 03/11/2024 12:35:50 03/11/20 24 Wound Care-Podiatry completed Chris Linda DPM [address], [place], [address], [facility] 03/11/2024 12:34:57 01/08/20 24 Wound Care-Podiatry completed Chris Linda DPM [address], [place], [address], [facility] 01/08/2024 12:26:31 12/25/19 24 Medicare Wellness CPT Code, subsequent completed [address] [facility] 12/25/2023 15:24:37 11/06/19 24 Medicare Wellness CPT Code, subsequent cancelled [address] [facility] 11/03/2023 10:10:00 01/08/20 22 SEPTOPLASTY (SURG) completed Not Available [facility] 10/19/2022 01:16:48 01/22/20 21 Cardiac Cath completed Not Available [facility] 023 01:06:21 reduction of nasal turbinate completed Not Available [facility] 10/19/2022 01:06:21 procedure on heart completed Lisa Lopez CNA [place] [facility] [place] [facility] 05/10/2024 11:11:45 Imaging Results Imaging Date Name Status LastModified by Organiz ation Details LastModified Time 06/21/2024 XR, hip + pelvis, unilateral completed [email or web address] [facility] [place] [address], [place], [address], 06/21/2024 12:02:31 Procedure Notes None recorded. Medical Equipment None Reported. Allergies Allergen ID Allergen Name Allergen Category Reaction Reaction Severity Criticality Documentation Date Start Date Code Code System Note Provider Name and Address Organization Details Recorded Time 1834 Iodinated contrast media (substanc e) medicatio n rash severe Not available 10/19/2022 62915 2004 SNOMED Not Available [facility] 3 01:16:23 1835 Brilinta medicatio n rash severe Not available 10/19/2022 87783 36 RxNorm Not Available [facility] 3 01:16:23 1836 allopurin ol medicatio n other severe Not available 10/19/2022 519 RxNorm Not Available [facility] 3 01:16:23 Medications Name Sig Start Date [...] Available Not Available Flarex 0.1 % eye drops,harry pension 09/06 completed Not Available Not Available Not [...] mg by injectio n route. 2023 active [facility]: [phone] 4-20 Not Available Not Available Not [...] mg/gram (0.5 %) eye ointment active Dr. Joshua kirk es Not Available [...] completed Not Available Not Available Not Available [employer] Delica Lancets 30 gauge 09/06 completed Not [...] Available [employer] Pen Needle 32 gauge x /32 active Not Available Not Available Not Available [...] Updated DateTime 06/21/2024 177.8 cm 37.9 kg/m2 047613.39 tammy Lopez CNA [place] [facility] 06/21/2024 11:11:01 Social History Question Answer Notes LastModified by Organization Details LastModified Time Tobacco Smoking Status Never Smoker Not Available [facility] 10/19/2022 01:04:37 Do You Have An Advance Directive? No MIGRATION.0301 016327 Information not available 10/19/2022 What Is Your Level Of Alcohol Consumption? None MIGRATION.0301 181479 Information not available 10/19/2022 Are You Blind Or Do You Have Difficulty Seeing? No MIGRATION.0301 712876 Information not available 10/19/2022 Is Blood Transfusion Acceptable In An Emergency? Yes Information not available 12/07/2023 What Is Your Level Of Caffeine Consumption? Occasional MIGRATION.0301 440187 Information not available 10/19/2022 How Much Tobacco Do You Chew? None MIGRATION.0301 355507 Information not available 10/19/2022 What Is Your Code Status? Full Code Information not available 12/07/2023 In The 14 Days Before Symptom Onset, Have You Had Close Contact With A Laboratory-confi rmed COVID-19 While That Case Was Ill? No MIGRATION.0301 000255 Information not available 10/19/2022 In The 14 Days Before Symptom Onset, Have You Had Close Contact With A Person Who Is Under Investigation For COVID-19 While That Person Was Ill? No MIGRATION.0301 295141 Information not available 10/19/2022 Are You Deaf Or Do You Have Serious Difficulty Hearing? No MIGRATION.0301 104068 Information not available 10/19/2022 What Type Of Diet Are You Following? CARDIAC And Renal MIGRATION.0301 887771 Information not available 10/19/2022 Which Illicit Or Recreational Drugs Have You Used? NONE MIGRATION.0301 029764 Information not available 10/19/2022 Do You Or Have You Ever Used E-cigarettes Or Vape? Never Used Electronic Cigarettes MIGRATION.0301 861645 Information not available 10/19/2022 What Is The Highest Grade Or Level Of School You Have Completed Or The Highest Degree You Have Received? [id number] 2 Years MIGRATION.0301 959987 Information not available 10/19/2022 What Is Your Occupation? DISABLED MIGRATION.0301 390620 Information not available 10/19/2022 Have There Been Any Changes To Your Family Or Social Situation? No Information not available 12/07/2023 Are There Any Guns Present In Your Home? No MIGRATION.0301 087769 Information not available 10/19/2022 Do You Use Insect Repellent Routinely? No Information not available 12/07/2023 Where Do You Live? SingleLevelHouse Information not available 12/07/2023 Advance Directive- Providers Has Reviewed Directive And Consents To Follow Them (insert Provider Name With Any Objectives In Notes Field) No MIGRATION.0301 [id number] Information not available 10/19/2022 Presence Of Domestic [...] Do You Have A Medical Power Of Purchasing Contracting Clerk? No Information not available 12/07/2023 What Was The Date Of Your Most Recent Tobacco Screening? 12/25/2023 [email or web address] Information not available 12/25/2023 Do You Have Any Pets? Yes Information not available 12/07/2023 What Is Your Relationship Status? Single MIGRATION.0301 844099 Information not available 10/19/2022 Do You Use Your Seat Belt Or Car Seat Routinely? Yes MIGRATION.0301 226000 Information not available 10/19/2022 Do You Have Smoke And Carbon Monoxide Detectors In Your Home? Yes Information not available 12/07/2023 Are You Passively Exposed To Smoke? No Information not available 12/07/2023 Do You Or Have You Ever Used Smokeless Tobacco? Never Used Smokeless Tobacco MIGRATION.0301 295485 Information not available 10/19/2022 Are There Any Smokers In Your House? No Information not available 12/07/2023 Do You Feel Stressed (tense, Restless, Nervous, Or Anxious, Or Unable To Sleep At Night)? [id number] MIGRATION.0301 256184 Information not available 10/19/2022 Do You Use Sunscreen Routinely? No Information not available 12/07/2023 Have You Recently Traveled Abroad? No MIGRATION.0301 691227 Information not available 10/19/2022 Are You Currently In School? No MIGRATION.0301 034022 Information not available 10/19/2022 Sex: Unknown Functional Status Question Answer Note LastModified by Organizat ion Details LastModified Time Do you have difficulty walking or climbing stairs? No MIGRATION.[id number] 26 Information not available 10/19/2022 Do you have difficulty doing errands alone? No MIGRATION.67412043 Information not available 10/19/2022 Do you have difficulty dressing or bathing? No MIGRATION.96071940 26 Information not available 10/19/2022 What is your exercise level? Occasional MIGRATION.64273160 26 Information not available 10/19/2022 Mental Status Question Answer Note LastModified by Organizat ion Details LastModified Time Do you have difficulty concentrating, remembering or making decisions? No MIGRATION.134011777 6 Information not available 10/19/2022 Family History Relationship Description Onset Age of this Age Resolved Age Notes LastModified by Organization Details LastModified Time Father Heart disease MIGRATION.536 [id number] Not available 10/19/2022 01:06:25 Father Hypertensive disorder MIGRATION.344 [id number] Not available 10/19/2022 01:06:25 Notes:cancer-mother NO ENT [...] HOSPITALIZED OR SEEN IN [facility] IN THE PAST YEAR ? N [...] quadrivalent, PF 3 completed BERNARDO Reddy [facility] 07/03/2023 11:25:39 pneumococcal polysaccharide PPV23 0 completed Not Available [facility] 10/19/2022 01:16:16 Tdap 0 completed Not Available [facility] 10/19/2022 01:16:16 Influenza, split virus, quadrivalent, PF 9 completed Not Available [facility] 10/19/2022 01:16:16 Influenza, split virus, quadrivalent, PF 2 completed Not Available [facility] 10/19/2022 01:16:16 Influenza, split virus, quadrivalent, PF 1 completed Not Available [facility] 10/19/2022 01:16:16 Past Encounters Encounter ID Performer Location Encounter Start Date Encounter Closed Date Diagnosis/Indication Diagnosis SNOMED-CT Code Diagnosis ICD10 Code Diagnosis Note [id number] Aditya [place] MD [address] [address] 05/21/2024 15:45:57 05/21/2024 16:21:32 Gout 98977770 M10.9 Vitamin D deficiency 347 59003 E55.9 Uncontroll ed type 2 diabetes mellitus 064864232 E11.65 Hypertriglyceridemia 302 987599 E78.2 Hyperlipidemia 16639286 E78.5 Chronic constipation 236 347320 K59.09 Obesity 046018656 E66.9 Pain of ri ght knee joint 7937824484 65359 M25.561 Chronic Chronic back pain 468493 002 G89.29 [id number] LESLY Gambino [facility] [place] [address] [place] [address] 06/21/2024 11:06:53 06/21/2024 11:57:45 Bilateral osteoarthritis of knees 2761050636 75623 M17.0 Pain of ri ght knee joint 5033055118 81528 M25.561 Pain of le ft knee joint 9691499793 34216 M25.562 Pain in ri ght hip joint 0144027979 28208 M25.551 Trochanter ic bursitis of right hip 8824878443 01098 M70.61 Health Concerns Section Related Observation LastModified by Organization Yossi ls LastModified Time None Recorded Concern Status LastModified by Organization Details LastModified Time None Recorded Payers Encounter Date Sequence Insurance Name Policy Number Policy Ge Covered Member ID Ge Member ID Guarantor Name 06/21/2024 2 [place] WHEN MEDICARE OR MEDICARE REPLACEMENT PRIMARY) Juvenal Daigle [id number] Juvenal Daigle 06/21/2024 1 [facility] (MEDICARE REPLACEMENT/AD VANTAGE - PPO) [id number] Juvenal Daigle [id number] Juvenal Daigle Notes Date Note Type Note [...] the groin with weight-bearing. LESLY Gambino [address] [facility], [facility] [address], [place], [address], [place] - [facility] 06/21/2024 12:03:04
--- OUTSIDE RECORDS SUMMARY | 2024-09-07 18:56 | XMS_ITS | Data Portability ---
Author Organization [facility] IP Address [address] [place] [address] Care Team Providers Care Director Of Dementia Operations Name Role Phone STEPHANIE CORREA Primary Care Provider [phone] Assessment No assessment recorded. Plan of Treatment [...] By Organization Details Last Modified Time 07/25/2018 [id number] use OTC lubrican t eyedrops 3 times a day in both eyes. [email or web address] Not available 07/25/2018 17:27:28 Keep follow-up appointments in 2 months as scheduled. msafi Not available 07/25/2018 17:27:45 12/05/2018 [id number] diabetic retinopathy: care instructions msafi Not available 12/05/2018 20:02:55 type 2 diabetes: [facility] 12/05/2018 20:02:55 Reason for Referral None Reported. Problems Name Problem SNOMED Code Status Onset Date Resolution Date Notes Provider Name and Address Organization Details Recorded Time Diabetes mellitus 03035196 Active 2017 Wandy agosto [facility] 8 12:14:02 Hypercholestero lemia 34183879 Active 2017 Wandy agosto [place] Jude [facility] 8 12:14:14 Problem Notes None recorded. Procedures Surgical History Date Name Laterality Status Provider Name and Address Organization Details Recorded Time 9 placement of stent in coronary artery completed Wandy Rapp [place] [facility] 12/05/2018 10:00:35 7 placement of stent in coronary artery completed Wandy Rapp [place] - [facility] 12/05/2018 09:59:38 7 Cataract Surgery completed Wandy Rapp [place] - [facility] 12/05/2018 10:00:20 Imaging Results None recorded. Procedure Notes None recorded. Medical Equipment None Reported. Allergies Allergen ID Allergen Name Allergen Category Reaction Reaction Severity Criticality Documentation Date Start Date Code Code System Note Provider Name and Address Organization Details Recorded Time [id number] 2824e Brilinta medicatio n Not available Not available Not available 07/04/2018 03382 36 RxNorm Not Available Not Available Not Available [id number] 7053292r3 2824e Iodinated contrast media (substanc e) medicatio n Not available Not available Not available 07/04/2018 33276 2004 SNOMED Not Available Not Available Not Available Medications Name Sig Start Date Stop Date [...] needle 1 mL 31 gauge x 16 active Not Available Not Available Not Available [...] Not Available Vitals Date Recorded Body height Provider Name an d Address Organization Details Last Updated DateTime 07/04/2018 180.34 cm Wandy Rapp [place] [facility] 07/04/2018 12: 12:35 Date Recorded Heart rate Provider Name an d Address Organization Details Last Updated DateTime 07/04/2018 64 /min Wandy Roque [facility] 07/04/2018 12: 12:55 Date Recorded Body mass index (BMI) Body weight Provider Name and Address Organization Details Last Updated DateTime 07/04/2018 37 kg/m2 431507.98 g Wandy Roque [facility] 018 12:13:01 Date Recorded Body height Provider Name an d Address Organization Details Last Updated DateTime 07/25/2018 180.34 cm LUAN Bustos [facility] 2017 15:12:02 Date Recorded Heart rate Provider Name an d Address Organization Details Last Updated DateTime 07/25/2018 63 /min Bernice Connelly RN [facility] 2017 15:12:17 Date Recorded Body mass index (BMI) Body weight Provider Name and Address Organization Details Last Updated DateTime 07/25/2018 36.9 kg/m2 978301.46 g Bernice Connelly RN [facility] 07/25/2018 15:12:28 Date Recorded Body height Provider Name an d Address Organization Details Last Updated DateTime 12/05/2018 180.34 cm Wandy Roque [facility] 12/05/2018 09: 56:31 Date Recorded Body mass index (BMI) Body weight Provider Name and Address Organization Details Last Updated DateTime 12/05/2018 37.8 kg/m2 877789.53 g Wandy Roque [facility] 2018 09:56:41 Date Recorded Heart rate Provider Name an d Address Organization Details Last Updated DateTime 12/05/2018 62 /min Wandy Roque [facility] 12/05/2018 09: 58:39 Date Recorded Systolic blood pressure Diastolic blood pressure Provider Name and Address Organization Details Last Updated DateTime 07/04/2018 161 mm[Hg] 66 mm[Hg] Wandy Roque [facility] 07/04/20 18 12:12:14 Date Recorded Systolic blood pressure Diastolic blood pressure Provider Name and Address Organization Details Last Updated DateTime 07/25/2018 148 mm[Hg] 67 mm[Hg] LUAN Bustos [facility] 07/25/2018 15:12:11 Date Recorded Systolic blood pressure Diastolic blood pressure Provider Name and Address Organization Details Last Updated DateTime 12/05/2018 133 mm[Hg] 64 mm[Hg] Wandy Rapp [facility] 12/06/19 19 09:58:22 Social History Question Answer Notes LastModified by Organizat ion Details LastModified Time Tobacco Smoking Status Never Smoker Wandy Rapp null, [facility] 12/05/2018 09:58:54 What Was The Date Of [...] SNOMED-CT Code Diagnosis ICD10 Code Diagnosis Note [id number] Evy Olson MD [facility] [address] [address] 07/04/2018 11:51:22 07/05/2018 16:47:49 After-cataract with vision obscured following extraction of cataract 570568329 H26.492 Proliferat bianca retinopathy due to type 1 diabetes mellitus 5310314506 9101 E10.3593 [id number] Evy Olson MD 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 [address] [place] [address] 12/05/2018 09:46:14 12/06/2018 13:28:35 Nonproliferative retinopathy due to diabetes mellitus 684550820 E11.3293 After-juan ract with vision obscured following extraction of cataract 810987794 H26.492 Health Concerns Section Related Observation LastModified by Organization Detai ls LastModified Time None Recorded Concern Status LastModified by Organization Details LastModified Time None Recorded Advance Directives Directive None Recorded Payers Encounter Date Sequence Insurance Name Policy Number Policy Ge Covered Member ID Ge Member ID Guarantor Name 07/04/2018 1 [facility] (MEDICAID HMO) [id number] Juvenal Newcombe [id number] Juvenal Newcombe 07/25/2018 1 [facility] (MEDICAID HMO) [id number] Juvenal Newcombe [id number] Juvenal Newcombe 12/05/2018 1 [facility] (MEDICAID HMO) [id number] Juvenal Newcombe [id number] Juvenal Newcombe Notes Date Note Type Note Provider Name and Address Organization Details Recorded Time 07/04/2018 text/html C/O bleeding in left eye seen by script worker H/O cat. Sx OU. 2016 and 2017. No prolbem in post op exam Evy Olson MD [address], [place], [address], [facility] 07/05/2018 10:07:17 07/25/2018 text/html complaint of red spot in the right eye since 3 days, no pain no discharge no previous injury.History of diabetic retinopathy in both eyes Evy Olson MD [address], [place], [address], [facility] 07/25/2018 17:28:04 12/05/2018 text/html F/U DRP. c/o decreased vision in left eye Evy Olson MD [address] [place], [address], [facility] 12/05/2018 20:02:58
--- OUTSIDE RECORDS SUMMARY | 2024-09-07 18:56 | XMS_ITS | Continuity of Care Document ---
Author Organization [place] - [facility], [facility] [place] Family [facility] Address [address] [place] [address] Care Team Providers Care Hydro Generation Manager Name Role Phone ADITYA CSATRO Primary Care Provider ADITYA CASTRO Referring Provider [phone] ADITYA CASTRO Primary Care Provider [phone] Assessment Encounter Date Assessment Date Assessment LastModified [...] per schedule. Cont f/u with Endo at [place] as per schedule. Cont f/u with Spine as per schedule. Cont f/u with Rheumat at [facility] as per schedule. Cont f/u with Surg as per schedule. Cont f/u with Cardio at [facility] as per schedule. Cont f/u with Nephro at [facility] as per schedule. Cont f/u with Hemat at [place] as per schedule. Cont f/u with Customer Service Technician as per schedule. Cont f/u with Ophtho at as per schedule. Cont f/u with Derm at [facility] as per schedule. Cont f/u with Dr. Langley (Hand surgeon) at as per schedule. Educated pt about alarming symptoms to monitor at home and call us back or get checked in ED. Pt had acute renal failure and was admitted hospital due to s/e from Allopurinol as per his Management Manager. So pt can not take any Allopurinol [...] months as before. Annual labs in 05/15. [email or web address] Not available 07/15/2024 12:11:51 Plan of Treatment Reminders Order Date Submit Date Provider Last Modified By Organization Details Last Modified Time Details Appointments Follow Up 15 2024 10:00A Lisa Castro MD Not available Not available Not available Lab None recorded. Referral general surgeon referral - Please call patient to schedule an appointme nt. Thank you. 2023 024 [email or web address] Everton Hooker MD, [address] [facility], [place], [address], 08/12/2024 08:54:30 Procedures None recorded. Surgeries None recorded. Imaging None recorded. Medication Orders tamsulosi n 0.4 mg capsule 2023 [email or web address] [facility][id number], [address] [facility], [place], [place], [id number], 07/15/2024 12:10:41 ketorolac 10 mg tablet 2023 [email or web address] [facility], [address] [facility], [place], [place], [id number], 08/27/2024 15:23:27 oxycodone 5 mg tablet 2023 [email or web address] [facility], [address] [facility], [place], [place], [id number], 08/27/2024 15:23:49 ondansetr on HCl 4 mg tablet 2023 [email or web address] [facility], [address] [facility], [place], [place], [id number], 07/15/2024 12:10:41 Patient TargetsNo targets recorded. Patient Instructions Encounter Date Encounter Id Patient Instructions Last Modified By Organization Details Last Modified Time 07/15/2024 [id number] starting a weigh t loss plan: care instructions [email or web address] Not available 07/15/2024 12:10:41 Reason for Referral General Surgeon Referral for Gallstone RUQ pain, gallstones ++ Please call patient to schedule an appointment. Thank you. Referring Physician: Aditya Castro [facility], Encounter Date: 07/15/2024 Results Created Date Observation Date Name Description Value Unit Range Abnormal Flag Note LastModifiedBy Organization Detail LastModifiedTime 06/21/20 24 XR, hip + pelvi s, unila teral No observ ation record ed. [email or web address] [facility] [place] [address], [place], [address], 06/21/2024 12:02:31 07/12/20 24 07/12/2024 CT, abdom en + pelvi s, w/o contr ast No observ ation record ed. [address], [place], [address], 07/15/2024 11:27:52 07/16/20 24 07/16/2024 CT, abdom en + pelvi s, w/o contr ast No observ ation record ed. [address], [place], [address], 08/27/2024 14:24:26 08/11/20 24 08/11/2024 CT, abdom en + pelvi s, w/o contr ast No observ ation record ed. [address], [place], [address], 08/27/2024 14:24:26 09/06/19 25 09/06/2024 imagi ng/di agnos tic resul t No observ ation record ed. [address], [place], [address], 09/06/2024 12:57:47 Result Notes None recorded. 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 974543817 Active 2017 Not Available [facility] 3 01:10:47 Chronic back pain 665093552 Active 2022 Not Available [facility] 3 01:10:47 Hyperchol esterolem ia 74755235 Active 2017 Not Available [facility] 3 01:10:47 Seborrhei c dermatiti s of scalp 093517660 Active 2022 Not Available [facility] 3 01:10:47 Chronic physical disabilit y 170422068 Active 2018 Not Available [facility] 3 01:10:47 History of deep vein thrombosi s 818348940 Active 2017 Not Available [facility] 3 01:10:47 Heartburn 63794534 Active 2017 Not Available [facility] 3 01:10:47 Ultrasoun d scan abnormal 583952780 Active 2020 Not Available [facility] 3 01:10:47 Hypertrop hy of nasal turbinate s 11555343 Active 2021 Not Available [facility] 3 01:10:47 Sensorine ural hearing loss of bilateral ears 932282647 Active 2021 [facility] Available [facility] 3 01:10:47 Periphera l venous insuffici ency 27592309 Active 2020 Not Available [facility] 3 01:10:47 Myocardia l infarctio n 97774312 Completed 201705/08/2018 Not Available [facility] 3 01:10:48 Stable angina 117119813 Active 2017 Not Available [facility] 3 01:10:48 End stage renal failure on dialysis 663497940 Active 2019 Not Available [facility] 3 01:10:48 Degenerat ion of lumbar intervert ebral disc 05425637 Active 2018 Not Available [facility] 3 01:10:48 Gastroeso phageal reflux disease without esophagit is 588055863 Active 2017 Not Available [facility] 3 01:10:48 Anemia 201391997 Active 2017 Not Available [facility] 3 01:10:48 Chronic low back pain 601199693 Active 2018 Not Available [facility] 3 01:10:48 Pain in toe 349611738 Active 2018 Not Available [facility] 3 01:10:48 Pain in toe 500356705 Active 2018 Not Available [facility] 3 01:10:48 Right upper quadrant pain 730748880 Active 2020 Not Available [facility] 3 01:10:48 Type 2 diabetes mellitus without complicat ion 827804417 Completed 201701/10/2019 Not Available [facility] 3 01:10:48 Pain in left foot 43646748763 9107 Active 2019 Not Available [facility] 3 01:10:48 Vitamin D deficienc y 16430126 Active 2017 Not Available [facility] 3 01:10:49 Seasonal allergic rhinitis 662088689 Active 2017 Not Available [facility] 3 01:10:49 Sinusitis 63767087 Active 2021 Not Available [facility] 3 01:10:49 Hypertens bianca disorder 83701891 Active 2017 Not Available [facility] 3 01:10:49 Osteoarth ritis 211970217 Active 2019 Not Available [facility] 3 01:10:49 Umbilical hernia 197939881 Active 2018 Not Available [facility] 3 01:10:49 Vertigo 697136457 Active 2021 Not Available [facility] 3 01:10:49 Abrasion and/or friction burn of skin 872421469 Active 2018 Not Available [facility] 3 01:10:49 Chronic sinusitis 61480902 Active 2021 Not Available [facility] 3 01:10:49 Multiple benign melanocyt ic nevi 293385916 Active 2017 Not Available [facility] 3 01:10:50 Deep venous thrombosi s of lower extremity 065459684 Active 2022 Not Available [facility] 3 01:10:50 Dizziness 618723617 Active 2017 Not Available [facility] 3 01:10:50 Dysphagia 55198514 Active 2021 Not Available [facility] 3 01:10:50 Obesity 545958319 Active 2017 Not Available [facility] 3 01:10:50 Ketoacido sis due to type 1 diabetes mellitus 700115530 Active 2019 Not Available [facility] 3 01:10:50 Nausea 297786591 Active 2021 Not Available [facility] 3 01:10:50 Congestiv e heart failure 82887364 Active 2017 Not Available [facility] 3 01:10:50 Diabetic periphera l neuropath y 076993689 Active 2017 Not Available [facility] 3 01:10:51 Asymmetri nikos hearing loss 764482060 Active 2021 Not Available [facility] 3 01:10:51 Chronic kidney disease stage 4 429636237 Completed 201707/29/2020 Not Available [facility] 3 01:10:51 Chronic kidney disease stage 5 188825815 Active 2019 Not Available [facility] 3 01:10:51 Uncontrol led type 2 diabetes mellitus 127328434 Completed 201705/16/2019 Aditya Castro MD [address] [facility] [address], [place], [address] , [facility] 4 09:03:03 Gastritis 0285116 Active 2021 Not Available [facility] 3 01:10:51 End-stage renal disease 99281285 Active 2019 Not Available [facility] 3 01:10:51 Type 1 diabetes mellitus 23178052 Active 2018 Not Available [facility] 3 01:10:52 Atrial fibrillat ion 05773195 Active 2017 Not Available [facility] 3 01:10:52 Hyperlipi demia 90583118 Active 2017 Not Available [facility] 3 01:10:52 Heart disease 40148383 Active 2017 Not Available [facility] 3 01:10:52 Hyperpara thyroidis m 06486105 Active 2018 Not Available [facility] 3 01:10:52 Nasal congestio n 15589676 Active 2021 Not Available [facility] 3 01:10:52 Diabetes mellitus 86316404 Active 2017 Not Available [facility] 3 01:10:52 Obstructi ve sleep apnea syndrome 84561131 Active 2018 Not Available [facility] 3 01:10:53 Epigastri c pain 37849382 Active 2021 Not Available [facility] 3 01:10:53 Chronic idiopathi c constipat ion 96576900 Active 2020 Not Available [facility] 3 01:10:53 Corneal abrasion 49749105 Active 2018 Not Available [facility] 3 01:10:53 Dystrophi a unguium 17274409 Active 2018 Not Available [facility] 3 01:10:53 Gout 59286145 Active 2017 Not Available [facility] 3 01:10:53 Chronic renal failure 72898332 Completed 201705/08/2018 Not Available [facility] 3 01:10:54 Skin lesion 70797054 Active 2017 Not Available [facility] 3 01:10:54 Hypertrig lyceridem ia 546952878 Active 2022 Aditya Castro MD [address] [facility] [address], [place], [address] , [facility] [employer] [facility] 3 16:04:08 Chronic constipat ion 676346203 Active 2022 Aditya Castro MD [address], [address], [place], [address] , [employer] 3 16:45:46 Cough 32893412 Active 2022 Aditya Castro MD [address], [address], [place], [address] , [employer] [facility] 3 12:45:44 Bronchiti s 84763382 Active 2022 Aditya Castro MD [address], [address], [place], [address] , [employer] 3 09:22:50 Allergic rhinitis 95672506 Active 2022 Aditya Castro MD [address], [place], [address] , [employer] 3 09:28:39 Allergic contact dermatiti s 568191683 Active 2022 Aditya Castro MD [address], [address], [place], [address] , [employer] 3 16:06:02 Tinea cruris 190757616 Active 2022 Aditya Castro MD [address], [address], [place], [address] , [employer] 3 16:06:15 Acute bacterial sinusitis 60980783 Active 2023 KATIE Chen [address], [address], [place], [address] , [employer] 4 09:55:25 Ulcer of mouth 42260612 Active 2023 Aditya Castro MD [address], [address], [place], [address] , [employer] 4 09:03:52 Onychomyc osis of toenails 394794499 Active 2023 Chris Linda DPM [address], [address], [place], [address] , [employer] 4 12:24:55 Folliculi tis 45394551 Active 2023 Aditya Castro MD [address], [address], [place], [address] , [employer] 4 10:26:36 Pain of right knee joint 91458221476 4100 Active 2023 Aditya Castro MD [address], [address], [place], [address] , [employer] 4 10:31:07 Bleeding of ear canal 194210503 Active 2023 Aditya Castro MD [address] [employer], [place], [address] , [employer] 4 10:40:38 Acute left otitis media 992370121 Active 2023 Rohit Jessica MD [address], [address], [place], [address] , [employer] 4 16:04:39 Thoracic back pain 667564810 Active 2023 Aditya Castro MD [address], [address], [place], [address] , [employer] 4 16:28:59 Pain of right shoulder blade 210513299 Active 2023 Aditya Castro MD [address], [address], [place], [address] , [employer] 4 16:30:04 Degenerat ion of thoracolu mbar intervert ebral disc 70956255 Active 2023 Aditya Castro MD [address], [address], [place], [address] , [employer] 4 16:30:54 Hypothyro idism 00598439 Active 2023 Aditya Castro MD [address], [address], [place], [address] , [facility] 4 16:34:29 Uncontrol led type 2 diabetes mellitus 414411541 Active 2023 Aditya Castro MD [address], [address], [place], [address] , [place] [facility] 4 09:03:03 Bilateral osteoarth ritis of knees 30803867789 9107 Active 2023 Sofia Newby null, [place] [facility] 4 11:42:16 Pain of left knee joint 19800371540 4107 Active 2023 LESLY Gambino [address], [address], [place], [address] , [facility] 4 13:42:14 Pain in right hip joint 76894828363 9102 Active 2023 Lisa Lopez CNA null, [place] [facility] 4 11:11:43 Trochante margarita bursitis of right hip 56504435484 9100 Active 2023 LESLY Gambino [address], [address], [place], [address] , [facility] 4 12:00:40 Gallstone 668233593 Active 2023 Aditya Castro MD [address], [address], [place], [address] , [place] [facility] 4 11:21:33 Right flank pain 117159836 Active 2023 Aditya Castro MD [address], [address], [place], [address] , [place] [facility] 4 11:29:38 Kidney stone 86486854 Active 2023 Aditya Castro MD [address], [address], [place], [address] , [employer] 11:31:01 Notes:blood clots, coronary artery disease, head trauma or injury, kidney disease, seizures, use of blood thinners, balance problems, numbness or tingling, loss of memory, swelling in legs, shortness of breath, muscle pain, back/neck pain, swollen or painful joints, excessive thirst, dry mouth, sleep apnea, wears glasses Some problems listed in Document: #[id number] could not be added to this patient's chart. Please review this document and add these problems to the patient's chart manually as needed. Problem Notes None recorded. Procedures Surgical History Date Name Laterality Status Provider Name and Address Organization Details Recorded Time 05/02/20 24 Nail Debridement completed Chris Linda DPM [address], [address], [place], [address], [employer] 05/20/2024 09:31:13 03/11/20 24 Nail Debridement completed Chris Linda DPM [address], [address], [place], [address], [employer] 03/11/2024 12:35:50 03/11/20 24 Wound Care-Podiatry completed Chris Linda DPM [address], [address], [place], [address], [employer] 03/11/2024 12:34:57 01/08/20 24 Wound Care-Podiatry completed Chris Linda DPM [address], [place], [address], [employer] 01/08/2024 12:26:31 12/25/19 24 Medicare Wellness CPT Code, subsequent completed [address] [employer] 12/25/2023 15:24:37 11/06/19 24 Medicare Wellness CPT Code, subsequent cancelled [address] [employer] 11/03/2023 10:10:00 01/08/20 22 SEPTOPLASTY (SURG) completed Not Available [facility] 10/19/2022 01:16:48 01/22/20 21 Cardiac Cath completed Not Available [facility] 023 01:06:21 reduction of nasal turbinate completed Not Available [facility] 10/19/2022 01:06:21 procedure on heart completed KELLE John [place] [employer] 05/10/2024 11:11:45 Imaging Results None recorded. Procedure Notes None recorded. Medical Equipment None Reported. Allergies Allergen ID Allergen Name Allergen Category Reaction Reaction Severity Criticality Documentation Date Start Date Code Code System Note Provider Name and Address Organization Details Recorded Time 1834 Iodinated contrast media (substanc e) medicatio n rash severe Not available 10/19/2022 80339 2004 SNOMED Not Available [facility] 3 01:16:23 1835 Brilinta medicatio n rash severe Not available 10/19/2022 13578 36 RxNorm Not Available [facility] 3 01:16:23 1836 allopurin ol medicatio n other severe Not available 10/19/2022 519 RxNorm Not Available [facility] 3 01:16:23 Medications Name Sig [...] Available Not Available Flarex 0.1 % eye drops,[facility] pension 09/06 completed Not Available Not Available [...] Available prednisol one acetate 1 % eye drops,[facility] penon 03/08 completed Not Available Not Available [...] mg by injectio n route. 2023 active [facility]: [phone] Not Available Not Available Not [...] Not Available Not Available Not Available levofloxa oscorro 500 mg tablet 08/27 completed Not Available [...] Last Updated DateTime 177.8 cm 38 kg/m2 915852. 19 g 97.3 [degF] 72 /min 97 % 97 % 150 mm[Hg] 78 mm[Hg] Lucinda Fletcher RN [facility] [employer] 11:26:31 Date Recorded Respiratory rate Provider Name a nd Address Organization Details Last Updated DateTime 07/15/2024 22 /min Lisa Gonzáles [address], [address], [place] [employer] [facility] [employer] 07/15/2024 12:05:38 Social History Question Answer Notes LastModified by Organization Details LastModified Time Tobacco Smoking Status Never Smoker Not Available [facility] 10/19/2022 01:04:37 Do You Have An Advance Directive? No MIGRATION.0301 [id number] Information not available 10/19/2022 What Is Your Level Of Alcohol Consumption? None MIGRATION.0301 [id number] Information not available 10/19/2022 Are You Blind Or Do You Have Difficulty Seeing? No MIGRATION.0301 445639 Information not available 10/19/2022 Is Blood Transfusion Acceptable In An Emergency? Yes Information not available 12/07/2023 What Is Your Level Of Caffeine Consumption? Occasional MIGRATION.0301 545546 Information not available 10/19/2022 How Much Tobacco Do You Chew? None MIGRATION.0301 633903 Information not available 10/19/2022 What Is Your Code Status? Full Code Information not available 12/07/2023 In The 14 Days Before Symptom Onset, Have You Had Close Contact With A Laboratory-confi rmed COVID-19 While That Case Was Ill? No MIGRATION.0301 259457 Information not available 10/19/2022 In The 14 Days Before Symptom Onset, Have You Had Close Contact With A Person Who Is Under Investigation For COVID-19 While That Person Was Ill? No MIGRATION.0301 534361 Information not available 10/19/2022 Are You Deaf Or Do You Have Serious Difficulty Hearing? No MIGRATION.0301 149053 Information not available 10/19/2022 What Type Of Diet Are You Following? CARDIAC And Renal MIGRATION.0301 732586 Information not available 10/19/2022 Which Illicit Or Recreational Drugs Have You Used? NONE MIGRATION.0301 709078 Information not available 10/19/2022 Do You Or Have You Ever Used E-cigarettes Or Vape? Never Used Electronic Cigarettes MIGRATION.0301 093722 Information not available 10/19/2022 What Is The Highest Grade Or Level Of School You Have Completed Or The Highest Degree You Have Received? MD79045-1 2 Years MIGRATION.0301 786976 Information not available 10/19/2022 What Is Your Occupation? DISABLED MIGRATION.0301 790374 Information not available 10/19/2022 Have There Been Any Changes To Your Family Or Social Situation? No Information not available 12/07/2023 Are There Any Guns Present In Your Home? No MIGRATION.0301 310394 Information not available 10/19/2022 Do You Use Insect Repellent Routinely? No Information not available 12/07/2023 Where Do You Live? 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 12/25/2023 [email or web address] Information not available 12/25/2023 Do You Have Any Pets? Yes Information not available 12/07/2023 What Is Your Relationship Status? Single MIGRATION.0301 549337 Information not available 10/19/2022 Do You Use Your Seat Belt Or Car Seat Routinely? Yes MIGRATION.0301 633628 Information not available 10/19/2022 Do You Have Smoke And Carbon Monoxide Detectors In Your Home? Yes Information not available 12/07/2023 Are You Passively Exposed To Smoke? No Information not available 12/07/2023 Do You Or Have You Ever Used Smokeless Tobacco? Never Used Smokeless Tobacco MIGRATION.0301 296293 Information not available 10/19/2022 Are There Any Smokers In Your House? No Information not available 12/07/2023 Do You Feel Stressed (tense, Restless, Nervous, Or Anxious, Or Unable To Sleep At Night)? IL2772-7 MIGRATION.0301 073916 Information not available 10/19/2022 Do You Use Sunscreen Routinely? No Information not available 12/07/2023 Have You Recently Traveled Abroad? No MIGRATION.0301 771531 Information not available 10/19/2022 Are You Currently In School? No MIGRATION.0301 609235 Information not available 10/19/2022 Sex: Unknown Functional Status Question Answer Note LastModified by Organizat ion Details LastModified Time Do you have difficulty walking or climbing stairs? No MIGRATION.[id number] 26 Information not available 10/19/2022 Do you have difficulty doing errands alone? No MIGRATION.[id number] 26 Information not available 10/19/2022 Do you have difficulty dressing or bathing? No MIGRATION.40985036 26 Information not available 10/19/2022 What is your exercise level? Occasional MIGRATION.[id number] 26 Information not available 10/19/2022 Mental Status Question Answer Note LastModified by Organizat ion Details LastModified Time Do you have difficulty concentrating, remembering or making decisions? No MIGRATION.[id number] 6 Information not available 10/19/2022 Family History Relationship Description Onset Age of this Age Resolved Age Notes LastModified by Organization Details LastModified Time Father Heart disease [id number] [id number] Not available 10/19/2022 01:06:25 Father Hypertensive disorder [id number] Not available 10/19/2022 01:06:25 Notes:cancer-mother NO ENT [...] YOU BEEN HOSPITALIZED OR SEEN IN [facility] IN THE PAST YEAR ? N [...] Influenza, split virus, quadrivalent, PF 3 completed [place] null, [place] [facility] 07/03/2023 11:25:39 pneumococcal polysaccharide PPV23 0 completed Not Available [facility] 10/19/2022 01:16:16 Tdap 0 completed Not Available [facility] 10/19/2022 01:16:16 Influenza, split virus, quadrivalent, PF 9 completed Not Available [facility] 10/19/2022 01:16:16 Influenza, split virus, quadrivalent, PF 2 completed Not Available [facility] 10/19/2022 01:16:16 Influenza, split virus, quadrivalent, PF 1 completed Not Available [facility] 10/19/2022 01:16:16 Past Encounters Encounter ID Performer Location Encounter Start Date Encounter Closed Date Diagnosis/Indication Diagnosis SNOMED-CT Code Diagnosis ICD10 Code Diagnosis Note [id number] LESLY Gambino [facility] Ortho Morgan Lizarraga [address] [place] [address] 06/21/2024 11:06:53 06/21/2024 11:57:45 Bilateral osteoarthritis of knees 5914179321 52732 M17.0 Pain of ri ght knee joint 6614440015 26919 M25.561 Pain of le ft knee joint 6693488495 14729 M25.562 Pain in ri ght hip joint 3844388550 90526 M25.551 Trochanter ic bursitis of right hip 3784976578 59654 M70.61 [id number] Aditya Castro MD [facility] [address] [address] 07/15/2024 10:53:35 07/15/2024 12:16:54 Chronic constipation 548799137 K59.09 Chronic back pain 506878 002 G89.29 Obesity 283994660 E66.9 [facility]en in [facility] 450042738 Z76.89 Gallstone 466534300 K80. 20 Right flank pain 3124197 09 R10.9 Kidney stone 54579707 N2 0.0 Rt Impaired mobility 903540 05 Z74.09 Due to pain Health Concerns Section Related Observation LastModified by Organization Detai ls LastModified Time None Recorded Concern Status LastModified by Organization Details LastModified Time None Recorded Payers Encounter Date Sequence Insurance Name Policy Number Policy Ge Covered Member ID Ge Member ID Guarantor Name 07/15/2024 2 [place] WHEN MEDICARE OR MEDICARE REPLACEMENT PRIMARY) Juvenal Daigle [id number] Juvenal Daigle 07/15/2024 1 [facility] (MEDICARE REPLACEMENT/AD VANTAGE - PPO) [id number] Juvenal Daigle [id number] Juvenalfabi Vargasdre Notes Date Note Type Note Provider Name [...] and Cardio regularly. Aditya Castro MD [address] [facility], [facility] [address], [place], [address], [place] [facility] 07/15/2024 12:12:12
--- OUTSIDE RECORDS SUMMARY | 2024-09-07 18:57 | XMS_ITS | Encounter Summary ---
Author Organization [facility] Address [address] [place] [address] Care Team Providers Care Naphthalene Still Operator Name Role Phone Aditya Castro Primary Care Provider Unavailab le Reason for Visit * Reason Comments Refill Request Encounter Details Date Type Department Care Team (Late st Contact Info) Description 04/13/2021 Refill [facility] [address] [place] [address] Girish Vasques MD [address] [facility] [address] [place] [address] Refill Request Social History Tobacco Use Types [...] dermatitis documented in this encounter Care Teams Naphthalene Still Operator Relationship Specialty Start Date End Date Aditya Castro Update Information PCP - General 03/06/19 documented as of this encounter
--- OUTSIDE RECORDS SUMMARY | 2024-09-07 18:57 | XMS_ITS | Referral Summary ---
Author Organization [facility] Address [address] [facility] [address] Care Team Providers Care Paint Roller Assembler Name Role Phone Aditya Castro Primary Care Provider Unavailab le Source Comments [facility],non-owned Affiliates and Associated Physician Practices is amultiple site organization consisting of ambulatory clinics and hospital sitesin [place], [place], [place] and [place]. This disclosure is being madepursuant to the Care Everywhere program and may not contain all information available regarding this patient. Last updated 18.[facility] Allergies Active Allergy Reactions Criticality Noted Date [...] needed 01/25/2019 Active vitamin D, ergocalciferol, (DRISDOL) 96540 units capsule Take 50,000 Units by mouth [...] fluticasone propionate (FLONASE) 50 MCG/ACT nasal spray [place] 1 spray into each nostril once daily 04/24/2019 Active epoetin (PROCRIT) 31408 UNIT/ML injection Inject subcutaneously every 14 days [...] were not included. Juvenal Daigle 1970 Referring Bridge Design Engineer: Leandro Reyes Dialysis Info: Type: PD Time: 160 days (11/05/2019) Blood Type: A Body mass index is 37.8 kg/m??. ALERTS Waybill Clerk: Vashti Lizama NP Past Medical History: Diagnosis Date ? ? Anemia ? ? Arthritis ? ? Arthropathy osteo. back and knees see Dr. Norton ? ? CAD (coronary artery disease) ? ? Community acquired pneumonia 2017 [facility] hospitalized with double pneumonia ? ? Congestive heart failure ? ? Coronary artery disease ? ? Diabetes mellitus type 1 teens dx when he was 13. Insulin since he was dx. Insulin pump currently with dexacom. Vashti Lizama NP is svp digital sales. ? ? DM (diabetes mellitus) TYPE 1 ? ? DVT (deep venous thrombosis) 2017 [facility]. ? ? ESRD on peritoneal dialysis ? ? Gout ? ? History of blood transfusion 2017 during admission for [place] ? ? HLD (hyperlipidemia) ? ? HTN (hypertension) ? ? Hypercholesteremia 5 years on med ? ? Hypertension 30's on medications. ? ? Kidney disease ? ? Myocardial infarction 2017 [facility]. Stent x1 placed. ? ? Neuropathy [...] file Gets together: Not on file Attends yazidism service: Not on file Active member of [...] 07/02/2020: Committee Discussion Details: Pt brought to [facility] to discuss his cardiac workup. Team reviewed [...] Impression: It is the impression of this clinical social work therapist that Juvenal Daigle has several positive factors [...] of safety concerns regarding immunosuppressants. ?? Plan: early childhood worker to provide supportive services as needed. Patient appears to be a reasonable candidate for transplant from a psychosocial perspective. ?? -Post transplant arrangement forms are needed prior to being listed. Psychiatric Consult Recommended: No ?? Transplant Clinical Application Consultant: Radha Roper LCSW ?? RD:05/14/2020 BMI= 40.0, [...] Comments Blood Pressure 140/60 07/13/2020 1:30 PM OCC THERAPIST Pulse 65 07/13/2020 1:30 PM OCC THERAPIST Temperature 36.1 ??C (97 ??F) 07/13/2020 1:30 PM OCC THERAPIST Respiratory Rate 20 07/13/2020 1:30 PM OCC THERAPIST Oxygen Saturation 95% 07/13/2020 1:30 PM OCC THERAPIST Inhaled Oxygen Concentration - - Weight 134.3 kg (296 lb) 07/13/2020 1:30 PM OCC THERAPIST Height 176.5 cm (5' 9.5 ) 07/13/2020 1:30 PM OCC THERAPIST Body Mass Index 43.08 07/13/2020 1:30 PM OCC THERAPIST Plan of Treatment Not on file Procedures [...] ve Non-react bianca 05/14/2020 11:49 AM CDT [facility] Comment:Neither HIV-1 p24 An tigen nor HIV-1/HIV-2 Antibodies are detected. Blood BLOOD SPECIMEN / Unknown Lab Venipuncture / Unknown 05/14/2020 10:18 AM CDT 05/14/2020 10:57 AM CDT Glenny Martin MD LAB - HEMATOLOG Y ORDERABLES [facility] [address] [place] [address], [facility] [phone] * (ABNORMAL) COMPREHENSIVE METABOLIC PANEL (05/14/2020 10:18 AM CDT) Pathologist [facility] BUN 65(H) 7 - 26 mg/dL 05/14/2020 11:41 AM [facility] Creatinine 5.6(H) 0.6 - 1.2 mg/dL 05/14/2020 11:41 AM [facility] Sodium 142 136 - 145 mmol/L 05/14/2020 11:41 AM [facility] Potassium 3.7 3.5 - 4.5 mmol/L 05/14/2020 11:41 AM [facility] Chloride 101 98 - 107 mmol/L 05/14/2020 11:41 AM [facility] CO2 28 22 - 29 mmol/L 05/14/2020 11:41 AM [facility] Glucose 162(H) 70 - 115 mg/dL 05/14/2020 11:41 AM [facility] Calcium 9.0 8.4 - 10.2 mg/dL 05/14/2020 11:41 AM [facility] Protein Total 6.9 6.0 - 8.3 g/dL 05/14/2020 11:41 AM [facility] Albumin 3.7 3.4 - 5.0 g/dL 05/14/2020 11:41 AM [facility] Bilirubin Total 0.7 0.2 - 1.2 mg/dL 05/14/2020 11:41 AM [facility] Alkaline Phosphatase 140 40 - 150 Units/L 05/14/2020 11:41 AM [facility] ALT 43 0 - 55 Units/L 05/14/2020 11:41 AM [facility] AST 29 5 - 34 Units/L 05/14/2020 11:41 AM [facility] Anion Gap 17 8 - 18 05/14/2020 11:41 AM [facility] BUN/Creatinine Ratio 12 7 - 23 05/14/2020 11:41 AM [facility] Osmolality Calculated 316(H) 270 - 300 mOsm/kg 05/14/2020 11:41 AM [facility] Albumin/Globulin Ratio 1.2 1.1 - 2.3 05/14/2020 11:41 AM [facility] eGFR 11(L) >60 mL/min/1.7 3 m2 05/14/2020 11:41 AM [facility] Blood BLOOD SPECIMEN / Unknown Lab Venipuncture / Unknown 05/14/2020 10:18 AM CDT 05/14/2020 10:55 AM [facility] Glenny Martin MD LAB - CHEMISTRY ORDERABLES [facility] [address] [place] [address], [facility] [phone] * HEPATITIS C ANTIBODY (05/14/2020 10:18 AM CDT) Hepatitis C Antibody Non-react bianca Non-reac tive 05/14/2020 11:49 AM [facility] Comment:Hepatitis C Antibody screen indicates no [...] ORDERABLES [facility] [address] [place] [address], [facility] [phone] from Last 3 Months or Most Recently Relevant to Health Maintenance Insurance Payer Benefit Plan / Group Subscriber ID Effective Dates Phone Address Type AETNA MEDICARE ADV AETNA MEDICARE ADV HMO/PPO/PFFS [id number] Effective for all dates [address] [place] [address] Medicare-Ma naged Care MEDICAID SPENDDOWN [facility] MEDICAID SPENDDOWN [facility] Effective for all dates [address] [place] [address] Medicaid AETNA MEDICARE ADV AETNA MEDICARE ADV HMO/PPO/PFFS [id number] Effective for all dates [address] [place] [address] Medicare-[place] naged Care MEDICAID [employer] MEDICAID [employer]DOWN [facility] Effective for all dates [address] [place] [address] Medicaid AETNA MEDICARE ADV AETNA MEDICARE ADV HMO/PPO/PFFS [id number] Effective for all dates [address] [place] [address] Medicare-[place] naged Care MEDICAID [employer] [facility] MEDICAID [employer] [facility] Effective for all dates [address] [place] [address] Medicaid MEDICARE [place] MEDICARE PART B [id number] 08/21/2019-Pres ent [address] [address] [place] [address] Medicare MEDICAID - OUT OF [facility] MEDICAID - [place] PUBLIC AID [id number] 08/21/2019-Pres ent [address] [address] [place] [address] Medicaid MEDICARE MEDICARE PART A AND B [id number] 08/21/2019-Pres ent [address] [place] [address] Medicare MEDICAID - [place] - [place] [id number] Effective for all dates [address] [address] [place] [address] Medicaid [place] Advance Directives * Full Code (Latest Code Status on File) Date Activated Date Inactivated Comments 11/22/2018 9:24 AM 11/23/2018 7:55 PM Care Teams Paint Roller Assembler Relationship Specialty Start Date End Date Aditya Castro Update Information PCP - General 03/06/19
--- OUTSIDE RECORDS SUMMARY | 2024-09-07 18:57 | XMS_ITS | Encounter Summary ---
Author Organization [facility] Address [address] [facility] [place] [address] Care Team Providers Care Dial Lathe Operator Name Role Phone Aditya Castro Primary Care Provider Unavailab le Encounter Details Date Type Department Care Team (Late st Contact Info) Description 07/13/2020 3:00 PM SPARK TESTER Office Visit [facility] - Nephrology [facility] [place] [phone] Leandro Reyes MD [address] [facility] , [address] [place] [address] Pre-transplant evaluation for kidney transplant (Primary Dx); Hypertensive chronic kidney disease with stage 5 chronic kidney disease or end stage renal disease (HCC); Type 2 diabetes mellitus with diabetic chronic kidney disease, unspecified CKD stage, unspecified whether shelter insulin use (HCC); End stage renal disease [...] not included. Transplant Nephrology Attending Juvenal Daigle [id number] Chief Complaint: Renal Transplant Evaluation Referring [...] to 500 but now he and his pie baker have better control of his blood sugars. His last Hgb a1c 7.7 He has had HTN since 2017 He has multiple stents in his RCA, which is a dominant artery.He presented with an OK and was foundto have RCA occlusion. A [...] on anticoagulation for 2 years until the milk sampler stopped it when he started plavix. Can [...] Priority: Not Prioritized Juvenal Daigle 1970 Referring Rocket Motor Mechanic: Leandro Reyes Dialysis Info: Type: PD Time: 160 days (11/05/2019) Blood Type: A Body mass index is 37.8 kg/m??. ALERTS Cognos Architect: Vashti Lizama NP Past Medical History: Diagnosis Date ??? Anemia ??? Arthritis ??? Arthropathy osteo. back and knees see Dr. Norton ??? CAD (coronary artery disease) ??? Community acquired pneumonia 2017 [facility] hospitalized with double pneumonia ??? Congestive heart failure ??? Coronary artery disease ??? Diabetes mellitus type 1 teens dx when he was 13. Insulin since he was dx. Insulin pump currently with dexacom. Vashti Lizama NPis pie baker. ??? DM (diabetes mellitus) TYPE 1 ??? DVT (deep venous thrombosis) 2017 [facility] ??? ESRD on peritoneal dialysis ??? Gout ??? History of blood transfusion 2017 during admission for OK ??? HLD (hyperlipidemia) ??? HTN (hypertension) ??? Hypercholesteremia 5 years on med ??? Hypertension 30's on medications. ??? Kidney disease ??? Myocardial infarction 2017 [facility]. Stent x1 placed. ??? Neuropathy [...] file Gets together: Not on file Attends anabaptism service: Not on file Active member of [...] 07/02/2020: Committee Discussion Details: Pt brought to [facility] to discuss his cardiac workup. Team reviewed [...] SW, education ??? 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 Anemia ??? Arthritis ??? Arthropathy osteo. back and knees see Dr. Norton ??? CAD (coronary artery disease) ??? Community acquired pneumonia 2017 [facility] hospitalized with double pneumonia ??? Congestive heart failure ??? Coronary artery disease ??? Diabetes mellitus type 1 teens dx when he was 13. Insulin since he was dx. Insulin pump currently with dexacom. Vashti Vo pie baker. ??? DM (diabetes mellitus) TYPE 1 ??? DVT (deep venous thrombosis) 2017 [facility] ??? ESRD on peritoneal dialysis ??? Gout ??? History of blood transfusion 2017 during admission for [place] ??? HLD (hyperlipidemia) ??? HTN (hypertension) ??? Hypercholesteremia 5 years on med ??? Hypertension 30's on medications. ??? Kidney disease ??? Myocardial infarction 2017 [facility]. Stent x1 placed. ??? Neuropathy [...] file Gets together: Not on file Attends anabaptism service: Not on file Active member of [...] 12 hours as needed ??? epoetin (PROCRIT) 76890 UNIT/ML injection Inject subcutaneously every 14 days ??? ezetimibe (ZETIA) 10 MG tablet Take 10 mg by mouth once daily ??? febuxostat (ULORIC) 40 MG tablet Take 40 mg by mouth ??? ferrous sulfate EC (FERROUS SULFATE) 324 (65 Fe) MG tablet Take 324 mg by mouth once daily ??? fluticasone propionate (FLONASE) 50 MCG/ACT nasal spray [place] 1 spray into each nostril once daily [...] test strip ??? vitamin D, ergocalciferol, (DRISDOL) 58797 units capsule Take 50,000 Units by mouth [...] results for input(s): MAGNESIUM in the last 86953 hours. Recent Labs Component Name 05/14/20 1018 04/26/19 1242 WBC 5.0 4.9 RBC 3.45* 3.40* HGB 10.7* 10.0* HCT 31.1* 29.5* MCV 90.1 86.8 MCHC 34.4 33.9 PLTCOUNT 232 243 NEUTPCT 54.8 57.8 NEUTABS 2.7 2.8 Recent Labs Component Name 05/14/20 1018 PTHINTACT 653.3* No results for input(s): [id number] in the last 46802 hours. Recent Labs Component Name 05/14/20 1018 [...] addressed. Cassia Cano MD 07/13/2020 3:37 PM K TESTER documented in this encounter Plan of Treatment [...] kidney disease, unspecified CKD stage, unspecified whether shelter insulin use (HCC) End stage renal disease (HCC) End stage renal disease documented in this encounter Care Teams Dial Lathe Operator Relationship Specialty Start Date End Date Aditya Castro Update Information PCP - General 03/06/19 documented as of this encounter
--- OUTSIDE RECORDS SUMMARY | 2024-09-07 18:57 | XMS_ITS | Encounter Summary ---
Author Organization [facility] Address [address] [facility] [place] [address] Care Team Providers Care Wire Wrapper Machine Operator Name Role Phone Aditya Castro [...] on filedocumented in this encounter Care Teams Wire Wrapper Machine Operator Relationship Specialty Start Date End Date Aditya Castro Update Information PCP - General 03/06/19 documented as of this encounter
--- OUTSIDE RECORDS SUMMARY | 2024-09-07 18:57 | XMS_ITS | Encounter Summary ---
Author Organization [facility] Address [address] [facility] [place] [address] Care Team Providers Care Home Care Rn Name Role Phone Aditya Castro Primary Care Provider Unavailab le Encounter Details Date Type Department Care Team (Late st Contact Info) Description 09/30/2020 Orders Only [facility] - COVID Vaccine [address] [place] [phone] Carrington Leos MD [address] [place] [address] Need for vaccination Social History Tobacco Use [...] disease documented in this encounter Care Teams Home Care Rn Relationship Specialty Start Date End Date Aditya Castro Update Information PCP - General 03/06/19 documented as of this encounter
--- OUTSIDE RECORDS SUMMARY | 2024-09-07 18:57 | XMS_ITS | Encounter Summary ---
Author Organization [facility] Address [address] [facility] [place] [address] Care Team Providers Care Hand Woodworking Sander Name Role Phone Aditya Castro Primary Care Provider Unavailab le Encounter Details Date Type Department Care Team (Late st Contact Info) Description 11/13/2020 Orders Only [facility] - COVID Vaccine [address] [place] [phone] Carrington Leos MD [address] [place] [address] Need for vaccination Social History Tobacco Use [...] disease documented in this encounter Care Teams Hand Woodworking Sander Relationship Specialty Start Date End Date Aditya Castro Update Information PCP - General 03/06/19 documented as of this encounter
--- OUTSIDE RECORDS SUMMARY | 2024-09-07 18:57 | XMS_ITS | CONTINUITY OF CARE DOCUMENT ---
Author Name archana magaña Address Unknown Organization [facility] Address [id number] [place] [address] [address] [place] [address] Phone [phone] Care Team Providers Care Switchboard Mechanic Name Role Phone Shannon ARNOLD, Hamlet Unavailable [phone] STEPHANIE CORREA MD Unavailable [phone] STEPHANIE CORREA MD Unavailable PROBLEMS Condition Status Date Provider Notes CABG post active Annemarie Connelly RN Valve replacement active Annemarie Connelly RN correction anticoagulant therapy active Annemarie Connelly RN Family [...] In-person encounter Office Visit Hamlet Ortega MD [facility] [place] Office - In-person encounter Office Visit Hamlet Ortega MD [facility] C A B G:Valve SurgeryCKD stage ESRD on dialysis GFR <15 - In-person encounter Office Visit Hamlet Ortega MD [place] - In-person encounter Office Visit Hamlet Ortega MD [facility] [place] [facility] - In-person encounter Office Visit Hamlet Ortega MD [facility] [place] [facility] OverweightAortic insufficiency - In-person encounter Office Visit Hamlet Ortega MD [facility] - In-person encounter Office Visit Hamlet Ortega MD [facility] - In-person encounter Office Visit Hamlet Ortega MD [facility] - In-person encounter Office Visit Hamlet Ortega MD [facility] - In-person encounter Office Visit Hamlet Ortega MD [facility] - In-person encounter Office Visit Hamlet Ortega MD [facility] - In-person encounter Office Visit Hamlet Ortega MD [facility] - In-person encounter Office Visit Hamlet Ortega MD [facility] Office - In-person encounter Office Visit Hamlet Ortega MD [place] - In-person encounter Office Visit Hamlet Ortega MD [facility] - In-person encounter Office Visit Hamlet Ortega MD [facility] - In-person encounter Office Visit Hamlet Ortega MD [facility] - In-person encounter Office Visit Hamlet Ortega MD [facility] Dizziness - In-person encounter Office Visit Hamlet Ortega MD [facility] - In-person encounter Office Visit Hamlet Ortega MD [facility] [place] [facility] - In-person encounter Office Visit Hamlet Ortega MD [facility] - In-person encounter Office Visit Hamlet Ortega MD [facility] Family History of Hypertension:Coronary artery diseaseShortness of breathDyspnea on exertionChest pain-type to be determinedDiabetes, Type 1HyperlipidemiaHTN essentialSleep apnea, obstructiveAcute deep venous thrombosis of leg, rightHypertensionCoronar y Heart Disease VITAL SIGNS Date Observation Value Provider Body Mass Index (Ratio) 40.31 kg/m2 Michael Ortega MD blood pressure, diastolic 79 mm[Hg] Samantha walsh [facility] blood pressure, systolic 169 mm[Hg] Molly lorena [facility] oxygen saturation, oximetry 100 % [facility] pulse rate 94 /min [facility] weight E&M 281 [lb_av] [facility] height E&M 70 [in_i] [facility] blood pressure, diastolic 101 mm[Hg] [facility] [place] blood pressure, systolic 157 mm[Hg] Vannahayden garay [place] oxygen saturation, oximetry 96 % [facility] [place] pulse rate 122 /min [facility] [place] blood pressure, cuff size regular [facility] [place] Body Mass Index (Ratio) 38.62 kg/m2 [facility] weight in kilograms E&M 122.11 kg [facility] weight E&M 269.2 [lb_av] [facility] 70 [in_i] [facility] height in centimeters E&M 177.80 [...] mm[Hg] Alexander blood pressure, systolic 148 mm[Hg] [facility] pulse rate 79 /min Omari respiratory rate E&M 12 /min [facility] oxygen saturation, oximetry 97 % [facility] weight E&M 266 [lb_av] [facility] height E&M 70 [in_i] [facility] Body Mass Index (Ratio) 37.59 kg/m2 Michael Ortega MD blood pressure, cuff size large Ja blood pressure, diastolic 95 mm[Hg] Alexander blood pressure, systolic 160 mm[Hg] [facility] pulse rate 75 /min [facility] respiratory rate [...] Reference Range Interpretation Location coagulation managed by Robin Villarreal RN international normalized ratio (INR) 1.6 Robin Villarreal RN Normal coagulation managed by Pamela Nicole [...] Normal prothrombin time (patient) 47.9 s Robin Arevalos RN coagulation managed by Robin Villarreal RN international normalized ratio (INR) 2.2 Robin Arevalos RN Normal prothrombin time (patient) 26.3 s Robin Arevalos RN coagulation managed by Robin Villarreal RN Robin Arevalos RN international normalized ratio (INR) 1.2 Robin Arevalos RN Normal prothrombin time (patient) 14.5 s Robin Arevalos RN coagulation managed by Robin Villarreal RN Robin Villarreal RN international normalized ratio (INR) 1.4 Robin Arevalos RN Normal prothrombin time (patient) 17.1 s [...] Normal coagulation managed by Annemarie Connelly RN Annemarie Connelly RN international normalized ratio (INR) [...] [employer] 3.5-5.2 sodium, serum 140 mmol/L [employer] [phone]/03/ 21 urea nitrogen/creatini ne ratio, serum 17 [...] Not Estab. platelet count 261 X10E3/UL [employer] [phone]/03/ 21 red blood cell distribution width 13.9 [...] Ortega MD warfarin 3 mg tablet active this week only take 1 1/2 tab 08/29/24 -Mon08/30/24-Sat 08/31/24 then back to 1 tab daily Robin Villarreal RN correction anticoagulant therapy warfarin 3 mg tablet completed Take 1 tablet by mouth every evening EXCEPT on Mon Wed and Mon , take 1 and one half tablet. 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 (1.5 mg) - Moustapha Koehler RN correction anticoagulant therapy warfarin 2 mg tablet completed [...] active 1 tablet three times a week Lolisstlian Berger gemfibrozil 600 mg tablet completed 1 tablet twice a day - Nida Hay ALL DAY ALLERGY 10 MG ORAL CAPSULE active 1 tablet once a day Lolisstity Ab calcitriol 0.25 mcg capsule active 1 capsule three times a week Loilsstlian Ab furosemide 80 mg tablet completed Take [...] meal time followed by sliding scale - Lolisstlian Ab VIAGRA 50 MG ORAL TABLET completed 1 tab every 24 hours - Lolisstlian Berger PREDNISONE 10 MG ORAL TABLET completed as [...] completed One Tab By Mouth Daily - Harriett Berger HYDRALAZINE HCL 100 MG ORAL TABLET completed [...] Hamlet Ortega MD alcohol use no Saniya Connelly passive cigarette sm kat exposure no Saniya Connelly smoking status Never smoker Saniya Connelly social history reviewed E&M revi ewed [...] Ferrera social history E&M Marital Statu s: Michael gaminomare: 3 O ccupation: Disabled Smoking History: P atient has never smoked. Hamlet Ortega MD social history reviewed E&M revi ewed - no changes required Hamlet Ortega MD passive cigarette sm kat exposure no Nida Satnam smoking status Never smoker Nida Hay social [...] Karley Holly smoking status Never smoker Karley Terrazaschad rosas social history E&M Marital Statu s: Michael gaminoen: 3 O ccupation: Disabled Smoking History: P atient has never smoked. Hamlet Ortega MD social history reviewed E&M revi ewed - no changes required Hamlet Ortega MD passive cigarette sm kat exposure no Karley Holly smoking status Never smoker Karley Terrazaschad rosas social history E&M Marital Statu s: Michael asher: 3 O ccupation: Disabled Smoking History: P atient has never smoked. Hamlet Ortega MD social history reviewed E&M revi ewed - no changes required Hamlet Ortega MD passive cigarette sm kat exposure no Karley Avni smoking status Never smoker Karley Terrazaschad rosas social history E&M Marital Statu s: Michael sterling: 3 O ccupation: Disabled Smoking History: P atient has never smoked. Hamlet Ortega MD social history reviewed E&M revi ewed - no changes required Hamlet Ortega MD passive cigarette sm kat exposure no Karley Holly smoking status Never smoker Karley Terrazaschad rosas social history E&M Marital Statu s: Michael sterling: 3 O ccupation: Disabled Smoking History: P atient has never smoked. Hamlet Ortega MD social history reviewed E&M revi ewed - no changes required Hamlet Ortega MD smoking status Never smoker Kimber Bear [facility] social history E&M Marital Statu s: Michael asher: 3 O ccupation: Disabled Smoking History: P atient has never smoked. Hamlet Ortega MD social history reviewed E&M revi ewed - no changes required Hamlet Ortega MD alcohol use no Karley Reese l passive cigarette sm kat exposure no Karley Holly smoking status Never smoker Karley Terrazaschad rosas social history E&M Marital Statu s: Michael snyderen: 3 O ccupation: Disabled Smoking History: P atient has never smoked. Hamlet Ortega MD social history reviewed E&M revi ewed - no changes required Hamlet Ortega MD alcohol use no Harriett Ab passive cigarette sm kat exposure no Lolisstlian Ab smoking status Never smoker Lolisstity Hogu e social history E&M Marital Statu [...] social history E&M Marital Statu s: Michael gaminocurly: 3 O ccupation: Disabled Smoking History: P [...] Payer name Policy type / Coverage type [employer] party ID [id number] COMPLETE CARE [id number] (PPO C-SNP) Commercial insurance [employer] Simple [id number] [facility] Medicaid 3 [id number] ADVANCE DIRECTIVES Name Date DISCUSSED - NO DECISION MADE TREATMENT PLAN Date Name Performer [id number],SHamlet MD [id number],SHamlet MD [id number],SHamlet MD [id number],SHamlet MD [id number],SHamlet MD [id number],SHamlet MD [id number],SHamlet MD [id number],S, Hamlet Ramada n [place] [id number],S, Hamlet Ramada n [place] [id number],S, Hamlet Ramada n [place] [id number],S, Hamlet Ramada n [place] [id number],S, Hamlet Ramada n [place] [id number],S, Hamlet Ramada n [place] [id number],C,T he patient is using BiPAP on a regular basis. The patient has been benefiting from therapy and should continue use. Hamlet Ramadan MA [id number],S, Hamlet Ramada n [place] [id number],S, Hamlet Ramada n [place] [id number],S, Hamlet Ramada n [place] [id number],S, Hamlet Ramada n [place] [id number],S, Hamlet Ramada n [place] [id number],S, Hamlet Ramada n [place] [id number],S, Hamlet Ramada n MA [id number],S, Hamlet Ramada n [place] [id number],S, Hamlet Ramada n [place] [id number],S, Hamlet Ramada n MA [id number],S, Hamlet Ramada n [place] [id number],S, Hamlet Ramada n [place] [id number],S, Hamlet Ramada n [place] [id number],C,T he patient is using CPAP on a regular basis. The patient has been benefiting from therapy and should continue use. Hamlet Ortega MD [id number],B, Hamlet Loredodewayne guzman MD [id number],S, Hamlet Loredodewayne guzman MD [id number],B, Hamlet Merle guzman MD [id number],B, Hamlet Merle guzman MD [id number],S, Hamlet Loredodewayne guzman MD [id number],S, Hamlet Loredodewayne guzman MD [id number],B, Hamlet Merle guzman MD [id number],S, Hamlettim Loredodewayne guzman MD [id number],S,L ast stress 01/08 had some abnormalities that fit with known coronary anatomy. No significant symptoms at this point. Will follow closely, no cath at this point. Patient is encouraged to increase activity as tolerated, particularly exercise in form of walking on treadmill. Hamlet Ortega MD [id number],B, Hamlet guzman MD [id number],S, Hamlet Merle guzman MD [id number],S, Hamlet Merle guzman MD [id number],C,T he patient is using CPAP on a regular basis. The patient has been benefiting from therapy and should continue use. Hamlet Ortega MD [id number],S, Hamlet Loredodewayne guzman MD [id number],S,L ast stress 01/08 had some abnormalities that [...] to see if EF has improved. Reviewed [facility] records from surgery and tests. Hamlet Ortega [...] nikita due to meds and DM. Hamlet Ortega MD Cardiology Hamlet Ortega MD Cardiology Hamlet rOtega MD Cardiology Hamlet Ortega MD Cardiology Hamlet Ortega MD Cardiology Hamlet Ortega MD Cardiology Hamlet Ortega MD Cardiology:Increased SOB. Will c heck ECHO and stress. Hamlet Ortega MD Cardiology follow up Hamlet cantu MD Cardiology follow up Hamlet cantu MD Cardiology follow up Hamlet canut MD Cardiology follow up Hamlet cantu MD [...] Procedure Name Provider Procedure Notes S tatus Phone Anti-Coag Management Hamlet Ortega MD completed [...] Phone Anti-Coag Management Robin Villarreal RN completed Protalexander Ortega MD complete d Phone Anti-Coag [...] MD completed Jacob Alexis MD complet ed Protime Hamlet Ortega [...] Images Hamlet Ortega MD comple marcelo Stress KULWANT Ortega MD complete d KULWANT Ortega MD complete d
--- OUTSIDE RECORDS SUMMARY | 2024-09-07 18:57 | XMS_ITS | Clinical Summary ---
Author Organization [facility] [employer] Address [address] [place] [address] Care Team Providers Care Credit Advisor Name Role Phone Aditya Castro Primary Care Provider Unavailab le Source Comments [facility] [employer],non-owned Affiliates and Associated Physician Practices is amultiple site organization consisting of ambulatory clinics and hospital sitesin [place], [place], [place] and [place]. This disclosure is being madepursuant to the Care Everywhere program and may not contain all information available regarding this patient. Last updated 18.[facility] [employer] Allergies Active Allergy Reactions Criticality Noted Date [...] needed 01/25/2019 Active vitamin D, ergocalciferol, (DRISDOL) 40914 units capsule Take 50,000 Units by mouth [...] fluticasone propionate (FLONASE) 50 MCG/ACT nasal spray [place] 1 spray into each nostril once daily 04/24/2019 Active epoetin (PROCRIT) 79727 UNIT/ML injection Inject subcutaneously every 14 days [...] were not included. Juvenal Daigle 1970 Referring International Account Representative: Leandro Reyes Dialysis Info: Type: PD Time: 160 days (11/05/2019) Blood Type: A Body mass index is 37.8 kg/m??. ALERTS Inventory Specialist Manager: Vashti Lizama NP Past Medical History: Diagnosis Date ? ? Anemia ? ? Arthritis ? ? Arthropathy osteo. back and knees see Dr. Norton ? ? CAD (coronary artery disease) ? ? Community acquired pneumonia 2017 [facility] hospitalized with double pneumonia ? ? Congestive heart failure ? ? Coronary artery disease ? ? Diabetes mellitus type 1 teens dx when he was 13. Insulin since he was dx. Insulin pump currently with dexacom. Vashti Lizama NP is automatic corn grinder operator. ? ? DM (diabetes mellitus) TYPE 1 ? ? DVT (deep venous thrombosis) 2017 [facility]. ? ? ESRD on peritoneal dialysis ? ? Gout ? ? History of blood transfusion 2017 during admission for [place] ? ? HLD (hyperlipidemia) ? ? HTN (hypertension) ? ? Hypercholesteremia 5 years on med ? ? Hypertension 30's on medications. ? ? Kidney disease ? ? Myocardial infarction 2017 [facility]. Stent x1 placed. ? ? Neuropathy feet [...] file Gets together: Not on file Attends baptism service: Not on file Active member of [...] 07/02/2020: Committee Discussion Details: Pt [facility] to [facility] to discuss his cardiac workup. [...] of safety concerns regarding immunosuppressants. ?? Plan: jordan worker to provide supportive services as needed. Patient appears to be a reasonable candidate for transplant from a psychosocial perspective. ?? -Post transplant arrangement forms are needed prior to being listed. Psychiatric Consult Recommended: No ?? Transplant Rotary Swaging Machine Operator: Radha Roper LCSW ?? RD:05/14/2020 BMI= [...] Comments Blood Pressure 140/60 07/13/2020 1:30 PM CHAIN SPLITTER Pulse 65 07/13/2020 1:30 PM CHAIN SPLITTER Temperature 36.1 ??C (97 ??F) 07/13/2020 1:30 PM CHAIN SPLITTER Respiratory Rate 20 07/13/2020 1:30 PM CHAIN SPLITTER Oxygen Saturation 95% 07/13/2020 1:30 PM CHAIN SPLITTER Inhaled Oxygen Concentration - - Weight 134.3 kg (296 lb) 07/13/2020 1:30 PM CHAIN SPLITTER Height 176.5 cm (5' 9.5 ) 07/13/2020 1:30 PM CHAIN SPLITTER Body Mass Index 43.08 07/13/2020 1:30 PM CHAIN SPLITTER Plan of Treatment Health Maintenance Due Date Last Done Comments JORDEN (AGES 45-75) - COLON CA SCREENING [address] COLONOGRAPHY - COLON CA SCREENING 1968 FIT - COLON CA SCREENING 1970 FLEX SIG - COLON CA SCREENING 1970 MEDICARE AWV ? 12 MONTHS 1970 DTAP/TDAP/TD VACCINES (1 - Tdap) 1987 HEPATITIS B VACCINE (1 of 3 - 19+ 3-dose series) 1987 PNEUMOCOCCAL VACCINE 50+ (1 of 2 - PCV) 1987 PNEUMOCOCCAL VACCINE (1 of 2 - PCV) 1987 ZOSTER VACCINE (1 of 2) 2018 SCREENING FOR DIABETES 05/14/2023 , 05/14/2020, 04/26/2019, Additional history exists COVID-19 VACCINE ( - 2023- season) 2024 INFLUENZA VACCINE (#1) 2024 05/16/2019, 2015 DEPRESSION SCREENING 08/21/2024 COLONOSCOPY - COLON CA SCREENING 03/08/2029 03/08/2019 Colorectal Cancer Screening 03/08/2029 HEPATITIS C SCREENING Completed 05/14/2020 HIV SCREENING Completed 05/14/2020 HIB VACCINE Aged Out No longer eligi ble based on patient's age to complete this topic HPV VACCINE Aged Out No longer eligi ble based on patient's age to complete this topic MENINGOCOCCAL (Group B) VACCINE Aged Out No longer eligible based on patient's age to complete [...] Non-reacti ve Non-react bianca 05/14/2020 11:49 AM [facility] Comment:Neither HIV-1 p24 An tigen nor HIV-1/HIV-2 Antibodies are detected. Blood BLOOD SPECIMEN / Unknown Lab Venipuncture / Unknown 05/14/2020 10:18 AM CDT 05/14/2020 10:57 AM CDT Glenny Martin MD LAB - HEMATOLOG Y ORDERABLES [facility] [address] [place] [address], [facility] [phone] * (ABNORMAL) COMPREHENSIVE METABOLIC PANEL (05/14/2020 10:18 AM CDT) Pathologist [facility] BUN 65(H) 7 - 26 mg/dL 05/14/2020 11:41 AM [facility] Creatinine 5.6(H) 0.6 - 1.2 mg/dL 05/14/2020 11:41 AM [facility] Sodium 142 136 - 145 mmol/L 05/14/2020 11:41 AM [facility] Potassium 3.7 3.5 - 4.5 mmol/L 05/14/2020 11:41 AM [facility] Chloride 101 98 - 107 mmol/L 05/14/2020 11:41 AM [facility] CO2 28 22 - 29 mmol/L 05/14/2020 11:41 AM [facility] Glucose 162(H) 70 - 115 mg/dL 05/14/2020 11:41 AM [facility] Calcium 9.0 8.4 - 10.2 mg/dL 05/14/2020 11:41 AM [facility] Protein Total 6.9 6.0 - 8.3 g/dL 05/14/2020 11:41 AM [facility] Albumin 3.7 3.4 - 5.0 g/dL 05/14/2020 11:41 AM [facility] Bilirubin Total 0.7 0.2 - 1.2 mg/dL 05/14/2020 11:41 AM [facility] Alkaline Phosphatase 140 40 - 150 Units/L 05/14/2020 11:41 AM [facility] ALT 43 0 - 55 Units/L 05/14/2020 11:41 AM [facility] AST 29 5 - 34 Units/L 05/14/2020 11:41 AM [facility] Anion Gap 17 8 - 18 05/14/2020 11:41 AM [facility] BUN/Creatinine Ratio 12 7 - 23 05/14/2020 11:41 AM [facility] Osmolality Calculated 316(H) 270 - 300 mOsm/kg 05/14/2020 11:41 AM [facility] Albumin/Globulin Ratio 1.2 1.1 - 2.3 05/14/2020 11:41 AM [facility] eGFR 11(L) >60 mL/min/1.7 3 m2 05/14/2020 11:41 AM [facility] Blood BLOOD SPECIMEN / Unknown Lab Venipuncture / Unknown 05/14/2020 10:18 AM CDT 05/14/2020 10:55 AM CDT Glenny Martin MD LAB - CHEMISTRY ORDERABLES [address] [address] [phone] * HEPATITIS C ANTIBODY (05/14/2020 10:18 AM CDT) Hepatitis C Antibody Non-react bianca Non-reac tive 05/14/2020 11:49 AM [facility] Comment:Hepatitis C Antibody screen indicates no [...] Glenny Martin MD LAB - CHEMISTRY ORDERABLES [address] [place] [address], [facility] [phone] from Last 3 Months or Most Recently Relevant to Health Maintenance Insurance Payer Benefit Plan / Group Subscriber ID Effective Dates Phone Address Type AETNA MEDICARE ADV AETNA MEDICARE ADV HMO/PPO/PFFS [id number] Effective for all dates [address] [place] [address] [place] naged Care MEDICAID [facility] MEDICAID [facility] Effective for all dates [address] [place] [address] Medicaid AETNA MEDICARE ADV AETNA MEDICARE ADV HMO/PPO/PFFS [id number] Effective for all dates [address] [place] [address] [place] naged Care [facility] MEDICAID [facility] Effective for all dates [address] [place] [address] Medicaid AETNA MEDICARE ADV AETNA MEDICARE ADV HMO/PPO/PFFS [id number] Effective for all dates [address] [place] [address] [facility] MEDICAID [facility] Effective for all dates [address] [place] [address] Medicaid MEDICARE S MEDICARE PART B [id number] 08/21/2019-Pres ent [address] [address] [place] [address] Medicare MEDICAID - OUT OF [facility] MEDICAID - [place] PUBLIC AID [id number] 08/21/2019-Pres ent [address] [address] [place] [address] Medicaid MEDICARE MEDICARE PART A AND B [id number] 08/21/2019-Pres ent [address] [place] [address] Medicare MEDICA[place] - [place] - [place] [id number] Effective for all dates [address] [address] [place] [address] Medicaid [place] Advance Directives * Full Code (Latest Code Status on File) Date Activated Date Inactivated Comments 11/22/2018 9:24 AM 11/23/2018 7:55 PM Care Teams Credit Advisor Relationship Specialty Start Date End Date Aditya Castro Update Information PCP - General 03/06/19
--- OUTSIDE RECORDS SUMMARY | 2024-09-07 18:57 | XMS_ITS | Patient Health Summary ---
Author Organization [facility] Address [address] [place] [address] Care Team Providers Care Proof Coin Collector Name Role Phone Aditya Castro Primary Care Provider Unavailab le Note from [facility],non-owned Affiliates and Associated Physician Practices is amultiple site organization consisting of ambulatory clinics and hospital sitesin [place], [place], [place] and [place]. This disclosure is being madepursuant to the Care Everywhere program and may not contain all information available regarding this patient. Last updated 18.[facility] Allergies * Allopurinol(Other) -High Criticality [...] as needed * vitamin D, ergocalciferol, (DRISDOL) 86274 units capsule(Started 02/13/2019) Take 50,000 Units by [...] propionate (FLONASE) 50 MCG/ACT nasal spray(Started 04/24/2019) [place] 1 spray into each nostril once daily * epoetin (PROCRIT) 57174 UNIT/ML injection Inject subcutaneously every 14 days [...] Comments Blood Pressure 140/60 07/13/2020 1:30 PM OFFICE CORRESPONDENT Pulse 65 07/13/2020 1:30 PM OFFICE CORRESPONDENT Temperature 36.1 ??C (97 ??F) 07/13/2020 1:30 PM OFFICE CORRESPONDENT Respiratory Rate 20 07/13/2020 1:30 PM OFFICE CORRESPONDENT Oxygen Saturation 95% 07/13/2020 1:30 PM OFFICE CORRESPONDENT Inhaled Oxygen Concentration - - Weight 134.3 kg (296 lb) 07/13/2020 1:30 PM OFFICE CORRESPONDENT Height 176.5 cm (5' 9.5 ) 07/13/2020 1:30 PM OFFICE CORRESPONDENT Body Mass Index 43.08 07/13/2020 1:30 PM OFFICE CORRESPONDENT Procedures * CARDIAC EKG ORDER(Performed 05/18/2020) * [...] Pre-transplant evaluation for kidney transplant * PROTHROMBIN [id number] PANEL(Performed 05/14/2020) Performed for Pre-transplant evaluation for [...] cause, unspecified chronicity, unspecified site, [place], unspecifiedtype ([facility]) * URIC ACID BLOOD(Performed 04/26/2019) Performed for Gout, unspecified cause, unspecified chronicity, unspecified site, [place], unspecifiedtype ([facility]) * CARDIAC PROCEDURE ORDER(Performed 11/27/2018) [...] complication, with long-term current use of insulin ([facility]) * BASIC METABOLIC PANEL (CALCIUM TOTAL)(Performed 11/23/2018) Performed for 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[place] heart with stable angina pectoris, unspecified vessel or lesion type ([facility]) * GLUCOSE - POINT OF CARE(Performed 11/22/2018) * GLUCOSE - POINT OF CARE(Performed 11/22/2018) * GLUCOSE - POINT OF CARE(Performed 11/22/2018) * GLUCOSE - POINT OF CARE(Performed 11/22/2018) * CARDIAC CATH(Performed 11/22/2018) * GLUCOSE - POINT OF CARE(Performed 11/22/2018) * BASIC METABOLIC PANEL (CALCIUM TOTAL)(Performed 11/22/2018) Performed for 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[place] heart with stable angina pectoris, unspecified vessel or lesion type ([facility]) * CARDIAC CATH CONSULT(Performed 11/22/2018) [...] annulus calcifications. Dictated by Ash Moreira MD (hvac residential service technician). I, Dr. HANNAH SPENCE have personally reviewed [...] annulus calcifications. Dictated by Ash Moreira MD (hvac residential service technician). I, Dr. HANNAH SPENCE have personally reviewed [...] Resolution DRB1-1 04 05/29/2020 7:[address] [facility] ([facility]) DR DQ Low Resolution DRB1-2 11 05/29/2020 7:[address] [facility] ([facility] [...] and its performance characteristics determined by the [facility]. ??It has not been cleared [...] high complexity clinical laboratory testing. ??CLIA ID# [id number] Performed at: ??[facility], [address] @ [facility], [place] ??[id number] Seat Maker: Jarrod Chin MD, Blood BLOOD SPECIMEN / Unknown Lab Venipuncture / Unknown 05/14/2020 10:18 AM CDT 05/14/2020 10:52 AM CDT Glenny Martin MD LAB - BLOOD BAN K ORDERABLES [facility] ([facility]) [address] [place] [address], [facility] * HLA TYPING DNA LOW RESOLUTION A,B,C (05/14/2020 10:18 AM CDT) ABC DNA A1 03 05/29/2020 7:59 AM CDT [facility] ([facility]) ABC DNA A2 29 05/29/2020 7:[address] [facility] ([facility]) ABC DNA B1 07 05/29/2020 7:[address] [facility] ([facility]) ABC DNA B2 44 05/29/2020 7:[address] [facility] ([facility]) ABC DNA BW1 6 05/29/2020 7:[address] [facility] ([facility]) ABC DNA BW2 4 05/29/2020 7:[address] [facility] ([facility]) ABC DNA C1 07 05/29/2020 7:[address] [facility] ([facility]) ABC DNA C2 - 05/29/2020 7:[address] [facility] ([facility]) ABC DNA Methodology SSOP 05/29 7:[address] [facility] ([facility]) Comment ABC DNA - 0 7:[address] [facility] ([facility]) ABC DNA Test Date 0 05/29/2020 7:[address] [facility] ([facility]) Comment: This test was developed and its performance characteristics determined by the [facility]. ??It has not been cleared [...] high complexity clinical laboratory testing. ??CLIA ID# [id number] Performed at: ??[facility], [address] @ [place], [place] ??[phone] Seat Maker: Jarrod Chin MD, Blood BLOOD SPECIMEN / Unknown Lab Venipuncture / Unknown 05/14/2020 10:18 AM CDT 05/14/2020 10:52 AM CDT Glenny Martin MD LAB - BLOOD BAN K ORDERABLES Performing Organization Address City/[facility]/ZIP Co de Phone Number [facility] ([facility]) [address] [place] [address], [place] * HLA ANTIBODY SCREEN LUM CLASS 2 ID (05/14/2020 10:18 AM CDT) Pathologist [facility] % PRA 90 05/29/2020 7:[address] [facility] ([facility]) Class 2 LUM Specificity - 05/29/2020 7:[address] [facility] ([facility]) Class 2 LUM Test Date 0 05/29/2020 7:59 AM CDT [facility] ([facility]) Comment: This test was developed and its performance characteristics determined by the [facility]. ??It has not been cleared [...] high complexity clinical laboratory testing. ??CLIA ID# [id number] Performed at: ??[facility], [address] @ [place], [place] ??[phone] Seat Maker: Jarrod Chin MD, Blood BLOOD SPECIMEN / Unknown Lab Venipuncture / Unknown 05/14/2020 10:18 AM CDT 05/14/2020 10:52 AM CDT Glenny Martin MD LAB - BLOOD BAN K ORDERABLES [facility] ([facility]) [address] [place] [address], [place] * HLA ANTIBODY SCREEN LUM CLASS 1 ID (05/14/2020 10:18 AM CDT) % PRA 4 05/29/2020 7:[address] [facility] ([facility]) Class 1 LUM Specificity - 05/29/2020 7:59 AM CDT [facility] ([facility]) Class 1 LUM Test Date 0 05/29/2020 7:59 AM CDT [facility] ([facility]) Comment: This test was developed and its performance characteristics determined by the [facility]. ??It has not been cleared [...] high complexity clinical laboratory testing. ??CLIA ID# [id number] Performed at: ??[facility], [address] @ [place], [place] ??[phone] Seat Maker: Jarrod Chin MD, Blood BLOOD SPECIMEN / Unknown Lab Venipuncture / Unknown 05/14/2020 10:18 AM CDT 05/14/2020 10:52 AM CDT Glenny Martin MD LAB - BLOOD BAN K ORDERABLES Performing Organization Address City/[facility]/ZIP Co de Phone Number [facility] ([facility]) [address] [place] [address], [place] * HIV-1 HIV-2 ANTIGEN/ANTIBODY (05/14/2020 10:18 AM CDT) HIV Antigen/Antibod y 1 & 2 Non-reacti ve Non-react bianca 05/14/2020 11:49 AM CDT [facility] Comment:Neither HIV-1 p24 An tigen nor HIV-1/HIV-2 Antibodies are detected. Blood BLOOD SPECIMEN / Unknown Lab Venipuncture / Unknown 05/14/2020 10:18 AM CDT 05/14/2020 10:57 AM CDT Glenny Martin MD LAB - HEMATOLOG Y ORDERABLES Performing Organization Address [facility] Co de Phone Number [address] [address], [facility] [phone] * CANNABINOID SCREEN BLOOD (05/14/2020 10:18 AM CDT) Marijuana Metabolites Negative 05/17/2020 12:06 AM CDT [facility] ([facility]) Comment:REFERENCE RANGE: thr shold: 5 ng/mL Specimen Type Comment 05/17/2020 12:06 AM CDT [facility] ([facility]) Comment: WHOLE BLOOD This specimen was screened by immunoassay at the thresholds listed above. Presumptive positive results have not been confirmed by an alternate method; results are intended for clinical medical purposes. Please contact the laboratory if confirmatory testing is desired. This test was developed and its performance characteristics determined by [facility]. It has not been cleared or approved by the Food and Drug Administration. Blood BLOOD SPECIMEN / Unknown Lab Venipuncture / Unknown 05/14/2020 10:18 AM CDT 05/14/2020 10:53 AM CDT Narrative [facility] ([facility]) - 05/17/2020 12:06 AM CDT Performed at: ??01 - [employer] [address] [place] [address] ??[phone] Seat Maker: Radha Callahan [facility], Phone: ??[phone] Glenny Martin MD LAB - CHEMISTRY ORDERABLES Performing Organization Address [facility]/ZIP Co de Phone Number [facility] ([facility]) [address] [place] [address] * COCAINE METABOLITE QUANT (05/14/2020 10:18 AM CDT) Cocaine and Metabolite Blood <20 ng/mL 05/17/2020 11:07 PM CDT [facility] ([facility]) Comment: INTERPRETIVE INFORMATION: Cocaine Metabolite, ?Serum or Plasma, ?Quantitative Methodology: Quantitative Gas Chromatography- Mass Spectrometry Positive cutoff: 20 ng/mL ?? For medical purposes only; not valid for forensic use. The concentration value must be greater than or equal to the cutoff to be reported as positive. Interpretive questions should be directed to the laboratory. Test developed and characteristics determined by [facility]. See Compliance Statement B: [email or web address] Performed By: [facility] [address] [place] [phone] Policy Services Representative: Valerie Mast MD Blood BLOOD SPECIMEN / Unknown Lab Venipuncture / Unknown 05/14/2020 10:18 AM CDT 05/14/2020 10:55 AM CDT Glenny Martin MD LAB - CHEMISTRY ORDERABLES Performing Organization Address City/[facility] Co de Phone Number [facility] ([facility]) [address] [place] [address] * SYPHILIS ANTIBODY CASCADING REFLEX (05/14/2020 10:18 AM CDT) Treponema pallidum Antibody Non-react bianca Non-react bianca 05/14/2020 11:47 AM CDT [facility] Comment: No Laboratory evidence of syphilis infection. ?? Note: ??Circulating antibodies may be low or undetectable in early infection. ??If recent exposure is suspected, re-draw sample in 2-4 weeks and repeat testing. Blood BLOOD SPECIMEN / Unknown Lab Venipuncture / Unknown 05/14/2020 10:18 AM CDT 05/14/2020 10:55 AM CDT Glenny Martin MD LAB - SEROLOGY ORDERABLES Performing Organization Address City/[facility]/ZIP Co de Phone Number [address] [address], [place] [phone] * AMPHETAMINE BLOOD CONFIRMATION (05/14/2020 10:18 AM CDT) Amphetamines Confirmation <20 ng/mL 05/20/2020 12:29 PM CDT [facility] ([facility]) Comment: INTERPRETIVE INFORMATION: Amphetamines, Serum or ?Plasma, [...] laboratory. Test developed and characteristics determined by [facility]. See Compliance Statement B: [facility]/CS Methamphetamine Confirmation <20 ng/mL 05/20/2020 12:29 PM CDT [facility] ([facility]) MDA Confirmation <20 ng/mL 05/20/20 20 12:29 PM CDT [facility]) MDMA Confirm <20 ng/mL 05/20/2020 12:29 PM CDT [facility] ([facility]) MDEA Confirmation <20 ng/mL 020 12:29 PM CDT [facility]) Comment: Performed By: [facility] [address] [place] [address] Policy Services Representative: Valerie Mast MD Blood BLOOD SPECIMEN / Unknown Lab Venipuncture / Unknown 05/14/2020 10:18 AM CDT 05/14/2020 10:57 AM CDT Glenny Martin MD LAB - CHEMISTRY ORDERABLES [facility] ([facility]) [address] [place] [address], [facility] * (ABNORMAL) PTH INTACT ([facility]) (05/14/2020 10:18 AM CDT) PTH Intact 653.3(H) 8.0 - 77.0 pg/mL 05/14/2020 11:34 AM CDT [facility] Blood BLOOD SPECIMEN / Unknown Lab Venipuncture / Unknown 05/14/2020 10:18 AM CDT 05/14/2020 10:55 AM CDT Glenny Martin MD LAB - CHEMISTRY ORDERABLES Performing Organization Address [facility]/ZIP Co de Phone Number [place] [address] [place] [address], [facility] [phone] * OPIATES BLOOD (05/14/2020 10:18 AM CDT) [facility] Opiates Screen Negative 05/17/2020 12:06 AM CDT [facility] ([facility]) Comment:REFERENCE RANGE: thr shold: 10 ng/mL Oxycodone Screen Negative 05/17/20 12:06 AM CDT [facility] ([facility]) Comment:REFERENCE RANGE: thr shold: 10 ng/mL Specimen Type Comment 05/17/2020 12:06 AM CDT [facility] ([facility]) Comment: WHOLE BLOOD This specimen was screened by immunoassay at the thresholds listed above. Presumptive positive results have not been confirmed by an alternate method; results are intended for clinical medical purposes. Please contact the laboratory if confirmatory testing is desired. This test was developed and its performance characteristics determined by [facility]. It has not been cleared or approved by the Food and Drug Administration. Blood BLOOD SPECIMEN / Unknown Lab Venipuncture / Unknown 05/14/2020 10:18 AM CDT 05/14/2020 10:53 AM CDT Narrative [facility] ([facility]) - 05/17/2020 12:06 AM CDT Performed at: ??01 - [employer] [address] [place] [address] ??[phone] Seat Maker: Radha Callahan [facility], Phone: ??[phone] Glenny Martin MD LAB - CHEMISTRY ORDERABLES [facility] ([facility]) [address] [place] [address], [facility] * (ABNORMAL) URIC ACID BLOOD (05/14/2020 10:18 AM CDT) Only the most recent of2 resultswithin the time period is included. Uric Acid 8.4(H) 2.6 - 7.2 mg/dL 05/14/2020 11:41 AM CDT [facility] Blood BLOOD SPECIMEN / Unknown Lab Venipuncture / Unknown 05/14/2020 10:18 AM CDT 05/14/2020 10:55 AM CDT Glenny Martin MD LAB - CHEMISTRY ORDERABLES [facility] [address] [place] [address], [facility] [phone] * PROTHROMBIN [id number] PANEL (05/14/2020 10:18 AM CDT) Prothrombin [id number] Negative 05/21/2020 8:19 PM CDT [facility] ([facility]) Comment: Indication for testing: Assess genetic risk for thrombosis. NEGATIVE: The Factor II, prothrombin P05991P mutation, was not detected. ??Other causes of [...] Cui, Ph.D. BACKGROUND INFORMATION: Prothrombin (F2) c.*97G>A ?(N87360I) Pathogenic Variant CHARACTERISTICS: The Factor II, c.*97G>A (Z48661N) pathogenic variant is a common genetic risk [...] CAUSE: Homozygosity or heterozygosity for F2 c.*97G>A (W82295V). PATHOGENIC VARIANT TESTED: F2 c.*97G>A (V53654D). CLINICAL SENSITIVITY FOR VENOUS THROMBOSIS: Approximately 10 percent. METHODOLOGY: Polymerase chain reaction and fluorescence monitoring. ANALYTICAL SENSITIVITY AND SPECIFICITY: 99 percent. LIMITATIONS: Diagnostic errors can occur due to rare sequence variations. F2 gene variants, other than c.*97G>A (C13588J), will not be detected. This test was developed and its performance characteristics determined by [facility]. It has not been cleared or approved by the US Food and Drug Administration. This test was performed in a CLIA certified laboratory and is intended for clinical purposes. Counseling and informed consent are recommended for genetic testing. Consent forms are available online. Performed by [facility], [address] [place] [address] [email or web address], Valerie Mast MD, Lab. Director Source PT [id number] PCR Whole Blood 05/21/2020 8:19 PM CDT [facility] [facility]) Blood BLOOD SPECIMEN / Unknown Lab Venipuncture / Unknown 05/14/2020 10:18 AM CDT 05/14/2020 10:48 AM CDT Sourav Moscoso MD LAB - COAGULATION OR DERABLES [facility]) [address] * (ABNORMAL) PROTEIN S ANTIGEN (05/14/2020 10:18 AM CDT) [facility] Protein S Antigen Total 177(H) 60 - 150 % 05/16/2020 2:07 AM CDT [facility] ([facility]) Comment: This test was developed and its performance characteristics determined by [facility]. It has not been cleared or approved by the Food and Drug Administration. Total Protein S Antigen is an acute phase reactant protein and can be elevated in inflammatory states. Protein S Free 179(H) 57 - 157 % 05/16/2020 2:07 AM CDT [facility] ([facility]) Comment: This test was developed and its performance characteristics determined by [facility]. It has not been cleared or approved by the Food and Drug Administration. Blood BLOOD SPECIMEN / Unknown Lab Venipuncture / Unknown 05/14/2020 10:18 AM CDT 05/14/2020 10:48 AM CDT Narrative [facility] ([facility]) - 05/16/2020 2:07 AM CDT Performed at: ??01 - [facility] ??[phone] Seat Maker: Con Grimaldo MD, Phone: ??[phone] Sourav Moscoso MD LAB - COAGULATION OR DERABLES [facility]) [address] [place] [address] * STRONGYLOIDES ANTIBODY IGG (05/14/2020 10:18 AM CDT) Strongyloides Antibody IgG 0.2 <=0.9 IV 05/17/2020 10:58 PM CDT [facility] ([facility]) Comment: INTERPRETIVE INFORMATION: Strongyloides Ab, IgG by [...] also result in false-positive results. Performed By: [employer] [facility] [employer] [facility] [address] [place] [address] Policy Services Representative: Valerie Mast MD Blood BLOOD SPECIMEN / Unknown Lab Venipuncture / Unknown 05/14/2020 10:18 AM CDT 05/14/2020 10:55 AM CDT Glenny Martin MD LAB - SEROLOGY ORDERABLES [facility]) [address] [place] [address], [facility] * FACTOR V LEIDEN MUTATION PANEL (05/14/2020 10:18 AM CDT) [facility] Factor V Leiden Source Whole Blood 05/21/2020 4:02 PM CDT [facility] ([facility]) Factor V Leiden PCR/FRET Negative 05/21/2020 4:02 PM CDT [facility] ([facility]) Comment: Indication for testing: Assess genetic risk for thrombosis. NEGATIVE: The factor V Leiden variant, c.1601G>A; p.[id number], was not detected. This does not exclude [...] function in the F5 gene variant c.1601G>A (p.[id number]). Legacy nomenclature: [id number] (1691G>A) CLINICAL SENSITIVITY: 20-50 percent of individuals with an isolated VTE have the FVL variant. METHODOLOGY: Polymerase chain reaction and fluorescence monitoring. ANALYTICAL SENSITIVITY AND SPECIFICITY: 99 percent. LIMITATIONS: Diagnostic errors can occur due to rare sequence variations. F5 gene mutations, other than p.[id number], will not be detected. This test was developed and its performance characteristics determined by [facility]. It has not been cleared or approved by the US Food and Drug Administration. This test was performed in a CLIA certified laboratory and is intended for clinical purposes. Counseling and informed consent are recommended for genetic testing. Consent forms are available online. Performed by [facility], [address] [place] [id number] [email or web address], Valerie Mast MD, Lab. Director Blood BLOOD SPECIMEN / Unknown Lab Venipuncture / Unknown 05/14/2020 10:18 AM CDT 05/14/2020 10:49 AM CDT Sourav Moscoso MD LAB - COAGULATION OR DERABLES [facility] ([facility]) [address] * CARDIOLIPIN ANTIBODY IGM (05/14/2020 10:18 AM CDT) Cardiolipin Antibody IgM 0 0 - 12 MPL 05/17/2020 12:33 AM CDT [facility] ([facility]) Comment: INTERPRETIVE INFORMATION: Anti-Cardiolipin IgM 0-12 [...] other criteria phospholipid antibody tests. Performed By: [facility] [address] [place] [address] Policy Services Representative: Valerie Mast MD Blood BLOOD SPECIMEN / Unknown Lab Venipuncture / Unknown 05/14/2020 10:18 AM CDT 05/14/2020 10:57 AM CDT Sourav Moscoso MD LAB - SEROLOGY ORDER ROVERTO [facility] ([facility]) [address] * CARDIOLIPIN ANTIBODY IGG (05/14/2020 10:18 AM CDT) Cardiolipin Antibody IgG 2 0 - 14 GPL 05/17/2020 12:32 AM CDT [facility] ([facility]) Comment: INTERPRETIVE INFORMATION: Anti-Cardiolipin IgG Ab [...] other criteria phospholipid antibody tests. Performed By: [facility] [address] [place] [address] Policy Services Representative: Valerie Mast MD Blood BLOOD SPECIMEN / Unknown Lab Venipuncture / Unknown 05/14/2020 10:18 AM CDT 05/14/2020 10:58 AM CDT Sourav Moscoso MD LAB - SEROLOGY ORDER ROVERTO [facility] [facility] [facility]) [address] [place] [address], [facility] * CYTOMEGALOVIRUS ANTIBODY IGG BLOOD (05/14/2020 10:18 AM CDT) [facility] Cytomegalovirus Antibody IgG >10.00 U/mL 05/16/2020 6:28 PM CDT [facility] ([facility]) Comment: INTERPRETIVE INFORMATION: Cytomegalovirus Antibody, IgG ??0.59 [...] laboratory at the same time. Performed By: [facility] [address] [place] [address] Policy Services Representative: Valerie Mast MD Blood BLOOD SPECIMEN / Unknown Lab Venipuncture / Unknown 05/14/2020 10:18 AM CDT 05/14/2020 10:55 AM CDT Glenny Martin MD LAB - CHEMISTRY ORDERABLES [facility] ([facility] [facility] [address] [place] [address], [facility] * RUBELLA ANTIBODY IGG TITER (05/14/2020 10:18 AM CDT) [facility] Rubella Antibody IgG 50.1 IU/mL 05/16/2020 6:32 PM CDT [facility] ([facility]) Comment: INTERPRETIVE INFORMATION: Rubella Antibody, IgG ??Less [...] the amount of antibody present. Performed By: [employer] [address] [place] [address] [place] [address] Policy Services Representative: Valerie Mast MD Blood BLOOD SPECIMEN / Unknown Lab Venipuncture / Unknown 05/14/2020 10:18 AM CDT 05/14/2020 10:56 AM CDT Glenny Martin MD LAB - SEROLOGY ORDERABLES [facility] [place] [facility]) [address] * RUBEOLA ANTIBODY IGG (05/14/2020 10:18 AM CDT) Measles (Rubeola) Antibody IgG >300.0 AU/mL 05/16/2020 2:46 PM CDT [facility] ([facility]) Comment: INTERPRETIVE INFORMATION: Measles (Rubeola) Antibody, IgG [...] laboratory at the same time. Performed By: [facility] [address] [place] [address] Policy Services Representative: Valerie Mast MD Blood BLOOD SPECIMEN / Unknown Lab Venipuncture / Unknown 05/14/2020 10:18 AM CDT 05/14/2020 10:57 AM CDT Glenny Martin MD LAB - CHEMISTRY ORDERABLES [facility]) [address] [place] [address], [facility] * MUMPS ANTIBODY IGG (05/14/2020 10:18 AM CDT) [facility] Mumps Virus Antibody IgG 17.2 AU/mL 05/16/2020 6:30 PM CDT [employer] ([facility]) Comment: INTERPRETIVE INFORMATION: Mumps Ab, IgG by [...] laboratory at the same time. Performed By: [facility] [address] [place] [address] Policy Services Representative: Valerie Mast MD Blood BLOOD SPECIMEN / Unknown Lab Venipuncture / Unknown 05/14/2020 10:18 AM CDT 05/14/2020 10:57 AM CDT Glenny Martin MD LAB - CHEMISTRY ORDERABLES [facility] [place] ([facility]) [address] [place] [address], [facility] * VARICELLA ZOSTER ANTIBODY IGG (05/14/2020 10:18 AM CDT) Varicella zoster Virus Antibody IgG 3705.0 IV 05/16/2020 2:46 PM CDT [facility] ([facility]) Comment: INTERPRETIVE INFORMATION: VZV Ab, IgG 134.9 [...] laboratory at the same time. Performed By: [facility] [address] [place] [id number] Policy Services Representative: Valerie Mast MD Blood BLOOD SPECIMEN / Unknown Lab Venipuncture / Unknown 05/14/2020 10:18 AM CDT 05/14/2020 10:57 AM CDT Glenny Martin MD LAB - CHEMISTRY ORDERABLES Performing Organization Address [facility] Co de Phone Number [facility] [place] [facility]) [address] [place] [address] * PROTEIN C ACTIVITY (05/14/2020 10:18 AM CDT) Protein C Activity 155 83 - 168 % 05/16/2020 10:47 PM CDT [facility] [place] ([facility]) Comment: INTERPRETIVE INFORMATION: Protein C, Functional Patients [...] reference intervals for this test in the [facility] Test Directory ([employer]). Performed by [employer], [address] [place] [address] [email or web address], Valerie Mast MD, Lab. Director Blood BLOOD SPECIMEN / Unknown Lab Venipuncture / Unknown 05/14/2020 10:18 AM CDT 05/14/2020 10:48 AM CDT Glenny Martin MD LAB - COAGULATI ON ORDERABLES Performing Organization Address [facility] de Phone Number [facility]) [address] [place] [address] * TRANSFERRIN (05/14/2020 10:18 AM CDT) Transferrin 245 174 - 382 mg/dL 05/14/2020 11:41 AM CDT [facility] Transferrin Saturation % 27 16 - 50 % 05/14/2020 11:41 AM CDT [facility] Blood BLOOD SPECIMEN / Unknown Lab Venipuncture / Unknown 05/14/2020 10:18 AM CDT 05/14/2020 10:57 AM CDT Glenny Martin MD LAB - CHEMISTRY ORDERABLES [place] [address] [place] [address], [facility] [phone] * TOXOPLASMA GONDII ANTIBODY IGG (05/14/2020 10:18 AM CDT) Toxoplasma Antibody IgG <3.0 IU/mL 05/16/2020 6:32 PM CDT [facility] [place] ([facility]) Comment: INTERPRETIVE INFORMATION: Toxoplasma Ab, IgG ??7.1 [...] the amount of antibody present. Performed By: [employer] [address] [place] [address] Policy Services Representative: Valerie Mast MD Blood BLOOD SPECIMEN / Unknown Lab Venipuncture / Unknown 05/14/2020 10:18 AM CDT 05/14/2020 10:58 AM CDT Glenny Martin MD LAB - CHEMISTRY ORDERABLES [facility]) [address] * (ABNORMAL) MADIHA-MORRIS VIRUS ANTIBODY TO VCA IGG (05/14/2020 10:18 AM CDT) Pathologist [facility] Madiha-Morris Virus Antibody IgG Viral Capsid Antigen 115.0(H) 0.0 - 21.9 U/mL 05/16/2020 5:10 PM CDT [facility] [place] ([facility]) Comment: INTERPRETIVE INFORMATION: Madiha-Morris Virus Antibody to ?Viral Capsid Antigen, IgG ??17.9 U/mL or less.......Not Detected ??18.0-21.9 U/mL..........Indeterminate - Repeat testing in ?10-14 days may be helpful. ??22.0 U/mL or greater....Detected Performed By: [employer] [address] [place] [address] Policy Services Representative: Valerie Mast MD Blood BLOOD SPECIMEN / Unknown Lab Venipuncture / Unknown 05/14/2020 10:18 AM CDT 05/14/2020 10:55 AM CDT Glenny Martin MD LAB - CHEMISTRY ORDERABLES Performing Organization Address City/State/[facility] Co de Phone Number [facility] ([facility]) [address] [place] [address], [facility] * (ABNORMAL) HEMOGLOBIN A1C (05/14/2020 10:18 AM CDT) Only the most recent of2 resultswithin the time period is included. Hemoglobin A1c 7.7(H) 4.4 - 6.3 % 05/14/2020 3:37 PM CDT [facility] LABOR[facility]ORY [facility] Estimated Average Glucose 174 mg/dL 05/14/2020 3:37 PM T [facility] Comment: HbA1c Interpretation: Treatment target values recommended by ADA and other clinical organizations should be used to evaluate metabolic control in patients. Treatment Target Values: Normal : < 5.7% Pre-diabetes: 5.7-6.4% Diabetes: Equal to or greater than 6.5% Reference: [place] [employer] Standards of Care in Diabetes -2014 In patients 70 years and older consider HbA1c target range of 7.0-7.5% Reference: ??Diabetes Mellitus in Older People: Position Statement on behalf of the International Association of Gerontology and Geriatrics (IAGG), the Diabetes Working Democrat for Older People (EDWPOP), and the International Task Force of Experts in Diabetes. ??Casarez A, et al. J [place] [employer] Association. 2012 Test results diagnostic of diabetes should be repeated for confirmation. The Sebia Capillary 2 assay for the measurement of HbA1c is a National Glycohemoglobin Standardization Program (NGSP)certified method. Blood BLOOD SPECIMEN / Unknown Lab Venipuncture / Unknown 05/14/2020 10:18 AM CDT 05/14/2020 10:55 AM CDT Glenny Martin MD LAB - CHEMISTRY ORDERABLES Performing Organization Address [facility]/ZIP Co de Phone Number [address] [address], [place] [phone] * (ABNORMAL) HOMOCYSTEINE BLOOD QUANTITATIVE (05/14/2020 10:18 AM CDT) Homocysteine 21.1(H) 4.4 - 16.2 umol/L 05/14/2020 11:51 AM CDT [facility] Blood BLOOD SPECIMEN / Unknown Lab Venipuncture / Unknown 05/14/2020 10:18 AM CDT 05/14/2020 10:48 AM CDT Sourav Moscoso MD LAB - CHEMISTRY HUANE SULEMA Performing Organization Address [facility]/ZIP Co de Phone Number [address] [address], [place] [phone] * ANTITHROMBIN III ACTIVITY (05/14/2020 10:18 AM CDT) AT III Activity 125 76 - 128 % 0 9:58 PM CDT [employer] ([facility]) Comment: REFERENCE INTERVAL: Antithrombin, Enzymatic (Activity) Access complete set of age- and/or gender-specific reference intervals for this test in the [facility] Test Directory ([facility]). Performed by [employer], [address] [place] [id number] [email or web address], Valerie Mast MD, Lab. Director Blood BLOOD SPECIMEN / Unknown Lab Venipuncture / Unknown 05/14/2020 10:18 AM CDT 05/14/2020 10:51 AM CDT Sourav Moscoso MD LAB - COAGULATION OR DERABLES [facility] ([facility]) [address] [place] [address], [facility] * (ABNORMAL) VITAMIN D 25-HYDROXY (05/14/2020 10:18 AM CDT) Only the most recent of2 resultswithin the time period is included. [facility] Vitamin D, 25 Hydroxy 23.0(L) See comment: ng/mL 05/14/2020 11:48 AM CDT [facility] Comment: The recommendations for 25-Hydroxy Vitamin [...] LAB - CHEMISTRY ORDERABLES Performing Organization Address City/[facility]/ZIP Co de Phone Number [facility] [address] [place] [address], [place] [phone] * BLOOD TYPE ABO+ RH PANEL (05/14/2020 10:18 AM CDT) ABO Rh A POS 05/14/2020 12:11 PM CDT [facility] BLOOD BANK LAB Blood BLOOD SPECIMEN / Unknown Lab Venipuncture / Unknown 05/14/2020 10:18 AM CDT 05/14/2020 11:29 AM CDT Glenny Martin MD LAB - BLOOD BAN K ORDERABLES [facility] BLOOD BANK LAB [address] [place] [address], [facility] [phone] * NICOTINE + METABOLITES BLOOD (05/14/2020 10:18 AM CDT) Nicotine <2 ng/mL 05/18/2020 10:08 PM CDT [employer] ([facility]) Comment: Consistent with abstinence from nicotine-containing products [...] ?? Test developed and characteristics determined by [employer]. See Compliance Statement B: [employer]/CS Performed By: [employer] [address] [place] [id number] Policy Services Representative: Valerie Mast MD 3-Hydroxy Cotinine <2 ng/mL 2019 10:08 PM CDT [facility]) Cotinine <2 ng/mL 05/18/2020 10:08 PM CDT [facility]) Blood BLOOD SPECIMEN / Unknown Lab Venipuncture / Unknown 05/14/2020 10:18 AM CDT 05/14/2020 10:57 AM CDT Glenny Martin MD LAB - CHEMISTRY ORDERABLES [facility]) [address] [place], [place] [address] * (ABNORMAL) CBC W AUTO DIFFERENTIAL (05/14/2020 10:18 AM CDT) Only the most recent of2 resultswithin the time period is included. WBC 5.0 3.5 - 10.5 10? 3 /uL 05/14/2020 11:[address] [facility] RBC 3.45(L) 4.30 - 5.70 10? 6 /uL 05/14/2020 11:[address] [facility] Hemoglobin 10.7(L) 13.5 - 17.5 g/dL 05/14/2020 11:[address] [facility] Hematocrit 31.1(L) 39.0 - 50.0 % 05/14/2020 11:[address] [facility] MCV 90.1 81.0 - 97.0 fL 05/14/2020 11:[address] [facility] MCH 31.0 28.0 - 34.0 pg 05/14/2020 11:[address] [facility] MCHC 34.4 32.0 - 36.0 g/dL 05/14/2020 11:[address] [facility] Platelet Count 232 150 - 400 10? 3 /uL 05/14/2020 11:[address] [facility] RDW-SD 42.4 36.0 - 50.0 fL 05/14/2020 11:[address] [facility] RDW-CV 12.9 11.2 - 14.8 % 05/14/2020 11:[address] [facility] MPV 9.8 9.3 - 12.8 fL 05/14/2020 11:[address] [facility] nRBC Absolute 0.00 0 10? 3 /uL 05/14/2020 11:[address] [facility] nRBC Auto 0.0 0 /100 WBC 05/14/2020 11:[address] [facility] Neutrophils % 54.8 35.0 - 70.0 % 05/14/2020 11:[address] [facility] Lymphocytes % 31.2 19.7 - 55.1 % 05/14/2020 11:[address] [facility] Monocytes % 9.4 3.0 - 15.0 % 05/14/2020 11:[address] [facility] Eosinophils % 3.8 0.0 - 6.0 % 05/14/2020 11:[address] [facility] Basophil % 0.6 0.0 - 1.5 % 05/14/2020 11:[address] [facility] Neutrophils Absolute 2.7 1.6 - 7.0 10? 3 /uL 05/14/2020 11:[address] [facility] Lymphocyte Absolute 1.6 0.8 - 2.9 10? 3 /uL 05/14/2020 11:[address] [facility] Monocytes Absolute 0.47 0.14 - 0.66 10? 3 /uL 05/14/2020 11:[address] [facility] Eosinophils Absolute 0.19 0.00 - 0.45 10? 3 /uL 05/14/2020 11:[address] [facility] Basophils Absolute 0.03 0.00 - 0.06 10? 3 /uL 05/14/2020 11:[address] [facility] Immature Granulocytes % 0.2 0.0 - 1.0 % 05/14/2020 11:[address] [facility] Blood BLOOD SPECIMEN / Unknown Lab Venipuncture / Unknown 05/14/2020 10:18 AM CDT 05/14/2020 10:[address] [facility] Glenny Martin MD LAB - HEMATOLOG Y ORDERABLES [facility] [address] [place] [address], [facility] [phone] * (ABNORMAL) COMPREHENSIVE METABOLIC PANEL (05/14/2020 10:[address] [facility]) Only the most recent of2 resultswithin the time period is included. BUN 65(H) 7 - 26 mg/dL 05/14/2020 11:[address] [facility] Creatinine 5.6(H) 0.6 - 1.2 mg/dL 05/14/2020 11:[address] [facility] Sodium 142 136 - 145 mmol/L 05/14/2020 11:[address] [facility] Potassium 3.7 3.5 - 4.5 mmol/L 05/14/2020 11:[address] [facility] Chloride 101 98 - 107 mmol/L 05/14/2020 11:[address] [facility] CO2 28 22 - 29 mmol/L 05/14/2020 11:[address] [facility] Glucose 162(H) 70 - 115 mg/dL 05/14/2020 11:[address] [facility] Calcium 9.0 8.4 - 10.2 mg/dL 05/14/2020 11:[address] [facility] Protein Total 6.9 6.0 - 8.3 g/dL 05/14/2020 11:[address] [facility] Albumin 3.7 3.4 - 5.0 g/dL 05/14/2020 11:[address] [facility] Bilirubin Total 0.7 0.2 - 1.2 mg/dL 05/14/2020 11:[address] [facility] Alkaline Phosphatase 140 40 - 150 Units/L 05/14/2020 11:[address] [facility] ALT 43 0 - 55 Units/L 05/14/2020 11:[address] [facility] AST 29 5 - 34 Units/L 05/14/2020 11:[address] [facility] Anion Gap 17 8 - 18 05/14/2020 11:[address] [facility] BUN/Creatinine Ratio 12 7 - 23 05/14/2020 11:[address] [facility] Osmolality Calculated 316(H) 270 - 300 mOsm/kg 05/14/2020 11:[address] [facility] Albumin/Globulin Ratio 1.2 1.1 - 2.3 05/14/2020 11:41 AM CDT [facility] eGFR 11(L) >60 mL/min/1.7 3 m2 05/14/2020 11:41 AM CDT [facility] Blood BLOOD SPECIMEN / Unknown Lab Venipuncture / Unknown 05/14/2020 10:18 AM CDT 05/14/2020 10:55 AM CDT Glenny Martin MD LAB - CHEMISTRY ORDERABLES [facility] [address] [place] [address], [place] [phone] * PROSTATE SPECIFIC ANTIGEN SCREEN (05/14/2020 10:18 AM CDT) PSA Total 0.4 0.0 - 4.0 ng/mL 05/14/2020 11:59 AM CDT [facility] Blood BLOOD SPECIMEN / Unknown Lab Venipuncture / Unknown 05/14/2020 10:18 AM CDT 05/14/2020 10:55 AM CDT Glenny Martin MD LAB - CHEMISTRY ORDERABLES Performing Organization Address [facility] Co de Phone Number [address] [address], [place] [phone] * (ABNORMAL) PHOSPHORUS BLOOD (05/14/2020 10:18 AM CDT) Phosphorus 5.1(H) 2.3 - 4.7 mg/dL 05/14/2020 11:41 AM CDT [facility] Blood BLOOD SPECIMEN / Unknown Lab Venipuncture / Unknown 05/14/2020 10:18 AM CDT 05/14/2020 10:55 AM CDT Glenny Martin MD LAB - CHEMISTRY ORDERABLES Performing Organization Address City/[facility]/ZIP Co de Phone Number [address] [address], [place] [phone] * IRON BLOOD (05/14/2020 10:18 AM CDT) Iron 84 50 - 175 mcg/dL 05/14/2020 11:41 AM CDT [facility] LABORATORY [facility] Blood BLOOD SPECIMEN / Unknown Lab Venipuncture / Unknown 05/14/2020 10:18 AM CDT 05/14/2020 10:57 AM CDT Glenny Martin MD LAB - CHEMISTRY ORDERABLES Performing Organization Address City/[facility]/ZIP Co de Phone Number [facility] [address] [place] [address], [facility] [phone] * (ABNORMAL) HEPATITIS B SURFACE ANTIBODY (05/14/2020 10:18 AM CDT) [facility] Hepatitis B Virus Surface Antibody Reactive( A) Non-react bianca 05/14/2020 11:47 AM CDT [facility] Comment: > 12 mIU/mL Hepatitis B surface Antibody (HBsAb). Reactive for HBsAb - individual is considered immune to Hepatitis B Virus infection. Hepatitis B Surface Antibody Quantitative 72.7(H) <8.0 mIU/mL 05/14/2020 11:47 AM CDT [facility] Comment: Hepatitis B Surface Antibody Numeric Result Interpretation: ? Nonreactive: ?<8.0 mIU/mL ? Indeterminate: ??8.0 - 12.0 mIU/mL ? Reactive: ?>12.0 mIU/mL ? Blood BLOOD SPECIMEN / Unknown Lab Venipuncture / Unknown 05/14/2020 10:18 AM CDT 05/14/2020 10:55 AM CDT Glenny Martin MD LAB - CHEMISTRY ORDERABLES Performing Organization Address [facility]/ZIP Co de Phone Number [facility] [address] [place] [address], [place] [phone] * HEPATITIS B CORE ANTIBODY (05/14/2020 10:18 AM CDT) Pathologist [facility] HBc Antibody Total Non-reacti ve Non-reacti ve 05/14/2020 11:47 AM CDT [facility] Blood BLOOD SPECIMEN / Unknown Lab Venipuncture / Unknown 05/14/2020 10:18 AM CDT 05/14/2020 10:55 AM CDT Glenny Martin MD LAB - CHEMISTRY ORDERABLES [address] [address], [place] [phone] * HEPATITIS B SURFACE ANTIGEN W RFLX CONFIRMATION (05/14/2020 10:18 AM CDT) [facility] Hepatitis B Virus Surface Antigen Non-reacti ve Non-reacti ve 05/14/2020 11:47 AM CDT [facility] Blood BLOOD SPECIMEN / Unknown Lab Venipuncture / Unknown 05/14/2020 10:18 AM CDT 05/14/2020 10:55 AM CDT Glenny Martin MD LAB - CHEMISTRY ORDERABLES Performing Organization Address [facility] Co de Phone Number [address] [address], [place] [phone] * ALCOHOL ETHYL BLOOD (05/14/2020 10:18 AM CDT) [facility] Interpretation Ethanol None Detected None Detected mg/dL 05/14/2020 11:41 AM CDT [facility] Comment:Ethanol levels less than 10 mg/dL are resulted as None detected . Blood BLOOD SPECIMEN / Unknown Lab Venipuncture / Unknown 05/14/2020 10:18 AM CDT 05/14/2020 10:55 AM CDT Glenny Martin MD LAB - CHEMISTRY ORDERABLES Performing Organization Address City/[facility]/ZIP Co de Phone Number [address] [address], [place] [phone] * HEPATITIS C ANTIBODY (05/14/2020 10:18 AM CDT) Pathologist [facility] Hepatitis C Antibody Non-react bianca Non-reac tive 05/14/2020 11:49 AM CDT [facility] Comment:Hepatitis C Antibody screen indicates [...] LAB - CHEMISTRY ORDERABLES Performing Organization Address [facility] Co de Phone Number [facility] [address] [place] [address], [facility] [phone] * (ABNORMAL) HEPATITIS A ANTIBODY (05/14/2020 10:18 AM CDT) [facility] Hepatitis A Virus Antibody Total Positive( A) Negative 05/16/2020 11:02 AM CDT [employer] ([facility]) Comment: The positive anti-HAV is consistent with recent or remote Hepatitis A infection or antibody response to HAV vaccination. False positive anti-HAV can occur. Performed by [employer], [address] [place] [address] [email or web address], Valerie Mast MD, Lab. Director Blood BLOOD SPECIMEN / Unknown Lab Venipuncture / Unknown 05/14/2020 10:18 AM CDT 05/14/2020 10:57 AM CDT Glenny Martin MD LAB - CHEMISTRY ORDERABLES Performing Organization Address [facility]/ZIP Co de Phone Number [facility] [facility]) [address] [place] [address] * (ABNORMAL) FERRITIN (05/14/2020 10:18 AM CDT) [facility] Ferritin 502(H) 22 - 275 ng/mL 05/14/2020 11:47 AM CDT [facility] Blood BLOOD SPECIMEN / Unknown Lab Venipuncture / Unknown 05/14/2020 10:18 AM CDT 05/14/2020 10:55 AM CDT Glenny Martin MD LAB - CHEMISTRY ORDERABLES [facility] [address] [place] [address], [facility] [phone] * (ABNORMAL) LIPID PROFILE (05/14/2020 10:18 AM CDT) Cholesterol Total 137 <200 mg/dL 05/14/2020 11:41 AM T [facility] HDL 28(L) >40 mg/dL 05/14/2020 11:[address] [facility] Comment: ATP III Classification of HDL Cholesterol: ? <40 mg/dL: ??Considered a major risk factor. ? >60 mg/dL: ??Considered a negative risk factor. ? LDL Calculated 70 <100 mg/dL 05/14/2020 11:[address] [facility] Comment: ATP III Classification of LDL Cholesterol: ?<100 mg/dL: ??Optimal ? 100 - 129 mg/dL: ??Near Optimal/Above Optimal ? 130 - 159 mg/dL: ??Borderline High ? 160 - 189 mg/dL: ??High ?>190 mg/dL: ??Very High ? Triglycerides 196(H) <150 mg/dL 05/14/2020 11:[address] [facility] Comment: ATP III Classification of Triglycerides: ?<150 mg/dL: ??Normal ? 150 - 199 mg/dL: ??Borderline High ? 200 - 400 mg/dL: ??High ?>500 mg/dL: ??Very High Blood BLOOD SPECIMEN / Unknown Lab Venipuncture / Unknown 05/14/2020 10:18 AM CDT 05/14/2020 10:55 AM CDT Glenny Martin MD LAB - CHEMISTRY ORDERABLES Performing Organization Address City/[facility]/ZIP Co de Phone Number [facility] [address] [place] [address], [facility] [phone] * TYPE + SCREEN PANEL (05/14/2020 10:06 AM CDT) Antibody Screen NEG 0 12:17 PM CDT [facility] BLOOD BANK LAB ABO Rh A POS 05/14/2020 12:17 PM CDT [facility] BLOOD BANK LAB Blood Bank BLOOD SPECIMEN / Unknown Lab Venipuncture / Unknown 05/14/2020 10:06 AM CDT 05/14/2020 11:30 AM CDT Glenny Martin MD LAB - BLOOD BAN K ORDERABLES Performing Organization Address City/[facility]/ZIP Co de Phone Number [facility] BLOOD BANK LAB [address] [place] [address], [facility] [phone] * XR PANOREX (05/14/2020 7:35 AM CDT) Anatomical Region Laterality Modality Head Radiographic Toma ging 05/14/2020 7:56 AM CDT Impressions 05/15/2020 7:51 AM CDT IMPRESSION: No periapical abscess identified. Dictated by Kristie Bee MD (hvac residential service technician). I, Dr. CONRAD GONZALES MD have personally [...] seen to indicate abscess. Procedure Note Conrad Gonzalse MD - 05/15/2020 EXAMINATION: [employer] HISTORY: Z01.818: [...] abscess identified. Dictated by Kristie Bee MD (hvac residential service technician). Dr. CONRAD Champion MD have personally reviewed [...] is normal. Dictated by Kristie Bee MD (hvac residential service technician). Dr. CONRAD Champion MD have personally reviewed [...] is normal. Dictated by Kristie Bee MD (hvac residential service technician). Dr. CONRAD Champion MD have personally reviewed [...] approximately 13% higher for people identified as -Libyan. eGFR by MDRD 14(L) > OR = [...] Lbs [address] [facility] Comment: Test Performed at: [facility] [place], [place] ??[address] ANA REYES DO,MPH 04/27/2019 9:17 AM CDT 04/27/2019 9:19 AM CDT Judah Norton MD LAB - URINE CHEMISTR Y ORDERABLES [facility] [id number] [place] [address] * XR FOOT RIGHT 3VW OR MORE [...] yo with gout, diffuse arthralgia and positive Shanw's test. COMPARISON: No prior study is available [...] extension. Vascular calcification is evident. Procedure Note Conrda Gonzales MD - 04/26/2019 EXAMINATION: 1. Left [...] Region Laterality Modality Pelvis, Lower Extremity [facility] 04/26/2019 1:20 PM CDT Impressions 04/26/2019 [...] Yellow Straw, Yellow, Colorless 04/26/2019 1:[address] [facility] Clarity UA Slt Cloudy Clear, Slt Cloudy 04/26/2019 1:31 PM [facility] Specific [place] UA 1.013 1.005 - 1.030 04/26/2019 1:[address] [facility] pH UA 5.0 5.0 - 8.0 pH 04/26/2019 1:[address] [facility] Protein UA 2+(A) Negative mg/dL 04/26/2019 1:31 PM [facility] Glucose UA 1+(A) Negative mg/dL 04/26/2019 1:31 PM [facility] Ketone UA Negative Negative mg/dL 04/26/2019 1:31 PM [facility] Bilirubin UA Negative Negative mg/dL 04/26/2019 1:[address] [facility] Blood UA Negative Negative 04/26/2019 1:31 PM [facility] Nitrite UA Negative Negative 04/26/2019 1:[address] [facility] Leukocyte Esterase Negative Negative 04/26/2019 1:31 PM CDT [facility] Urobilinogen UA Negative Negative mg/dL 04/26/2019 1:31 PM CDT [facility] RBC UA 0-2 None Seen, 0-2, 3-5 /HPF 04/26/2019 1:31 PM CDT [facility] WBC UA 0-5 None Seen, 0-5 /HPF 04/26/2019 1:31 PM CDT [facility] Squamous Epithelial Cells UA 0-2 None Seen, 0-2 /HPF 04/26/2019 1:31 PM CDT [facility] Mucus UA 1+ None, 1+ /LPF 04/26/2019 1:31 PM CDT [facility] Hyaline Casts UA 11-20(A) None Seen, 0-2 /LPF 04/26/2019 1:31 PM CDT [facility] Urine URINE SPECIMEN OBTAINED BY CLEAN CATCH PROCEDURE / Unknown Collection / Unknown 04/26/2019 12:42 PM CDT 04/26/2019 1:18 PM CDT Narrative [facility] - 04/26/2019 1:31 PM CDT Judah Norton MD LAB - URINALYSIS ORD ERABLES [facility] [address] [place] [address] * CYCLIC CITRUL PEPTIDE ANTIBODY IGG/IGA (CCP) (04/26/2019 12:42 PM CDT) CCP Antibodies IgG/IgA 17 0 - 19 units 04/29/2019 9:06 PM CDT [facility] ([facility]) Comment: ?Negative ? <20 ?Weak positive ?20 - 39 ?Moderate positive ??40 - 59 ?Strong positive ?>59 Blood BLOOD SPECIMEN / Unknown Lab Venipuncture / Unknown 04/26/2019 12:42 PM CDT 04/26/2019 1:18 PM CDT Narrative [facility] ([facility]) - 04/29/2019 9:06 PM CDT Performed at: ??01 - [facility] ??[id number] Seat Maker: Con Grimaldo MD, Phone: ??[phone] Judah Norton MD LAB - SEROLOGY ORDER ROVERTO Performing Organization Address City/[facility]/ZIP Co de Phone Number [facility] ([facility]) [address] [id number] * RHEUMATOID FACTOR BLOOD QUANTITATIVE (04/26/2019 12:42 PM CDT) Rheumatoid Factor <15 <30 IU/mL 04/26/2019 2:34 PM CDT [facility] Blood BLOOD SPECIMEN / Unknown Lab Venipuncture / Unknown 04/26/2019 12:42 PM CDT 04/26/2019 1:18 PM CDT Judah Norton MD LAB - CHEMISTRY SUSANNAH LEONE Performing Organization Address [facility] Co de Phone Number [address] [phone] * C-REACTIVE PROTEIN (04/26/2019 12:42 PM CDT) C-Reactive Protein <0.5 <=0.5 mg/dL 04/26/2019 2:21 PM CDT [facility] Blood BLOOD SPECIMEN / Unknown Lab Venipuncture / Unknown 04/26/2019 12:42 PM CDT 04/26/2019 1:19 PM CDT Judah Norton MD LAB - CHEMISTRY SUSANNAH LEONE Performing Organization Address City/[facility]/ZIP Co de Phone Number [address] [place] [phone] * SHAWN BLOOD SCREEN W/REFLEX TITER (04/26/2019 12:42 PM CDT) SHAWN Negative 04/27/2019 3:07 PM CDT [facility] ([facility]) Comment: ? Negative ?? <1:80 ? Borderline ??1:80 ? Positive ?? >1:80 Blood BLOOD SPECIMEN / Unknown Lab Venipuncture / Unknown 04/26/2019 12:42 PM CDT 04/26/2019 1:18 PM CDT Narrative [facility] ([facility]) - 04/27/2019 3:07 PM CDT Performed at: ??01 - [facility] [address] [place], [place] ??[id number] Seat Maker: Mehdi Del Angel PhD, Phone: ??[phone] Judah Norton MD LAB - CHEMISTRY SUSANNAH LEONE [facility] ([facility]) [address] [place] [address] * SS-B (SJOGREN'S) ANTIBODY (04/26/2019 12:42 PM CDT) SS-B LA Antibody 2.8 0.0 - 19.9 Units 04/30/2019 9:45 AM CDT [facility] Comment: JOSE ENRIQUE Antibody Numeric Result Interpretation: ?<20.0 Units: ??Negative ?20.0 - 39.0 Units: ??Weakly Positive ?>39.0 Units: ??Positive ? Blood BLOOD SPECIMEN / Unknown Lab Venipuncture / Unknown 04/26/2019 12:42 PM CDT 04/26/2019 1:19 PM CDT Judah Norton MD LAB - CHEMISTRY SUSANNAH LEONE Performing Organization Address [facility] Co de Phone Number [facility] [address] [phone] * SS-A (SJOGREN'S) ANTIBODY (04/26/2019 12:42 PM CDT) SS-A (Ro) Antibody 2.7 0.0 - 19.9 Units 04/30/2019 9:45 AM CDT [facility] Comment: JOSE ENRIQUE Antibody Numeric Result Interpretation: ?<20.0 Units: ??Negative ?20.0 - 39.0 Units: ??Weakly Positive ?>39.0 Units: ??Positive ? Blood BLOOD SPECIMEN / Unknown Lab Venipuncture / Unknown 04/26/2019 12:42 PM CDT 04/26/2019 1:19 PM CDT Judah Norton MD LAB - CHEMISTRY SUSANNAH LEONE Performing Organization Address [facility] de Phone Number [address] [phone] * ALDOLASE (04/26/2019 12:42 PM CDT) Aldolase 6.9 3.3 - 10.3 U/L 04/29/2019 3:08 PM CDT [facility] ([facility]) Blood BLOOD SPECIMEN / Unknown Lab Venipuncture / Unknown 04/26/2019 12:42 PM CDT 04/26/2019 1:18 PM CDT Narrative [facility] ([facility]) - 04/29/2019 3:08 PM CDT Performed at: ??01 - [facility] [place] [address] [facility], [place], [place] ??[id number] Seat Maker: Mehdi Del Angel PhD, Phone: ??[phone] Judah Norton MD LAB - CHEMISTRY SUSANNAH LEONE Performing Organization Address City/[facility]/ZIP Co de Phone Number [facility] ([facility]) [address] [place] [address] * (ABNORMAL) ERYTHROCYTE SEDIMENTATION RATE (04/26/2019 12:42 PM CDT) Erythrocyte Sedimentation Rate Westergren 34(H) 0 - 20 MM/HR 04/26/2019 1:31 PM CDT [facility] Blood BLOOD SPECIMEN / Unknown Lab Venipuncture / Unknown 04/26/2019 12:42 PM CDT 04/26/2019 1:19 PM CDT Judah Norton MD LAB - HEMATOLOGY HUAN WALTON [address] [phone] * (ABNORMAL) LDH BLOOD (04/26/2019 12:42 PM CDT) Pathologist [facility] LDH Total 268(H) 125 - 243 Units/L 04/26/2019 1:43 PM CDT [facility] Blood BLOOD SPECIMEN / Unknown Lab Venipuncture / Unknown 04/26/2019 12:42 PM CDT 04/26/2019 1:19 PM CDT Judah Norton MD LAB - CHEMISTRY SUSANNAH LEONE Performing Organization Address City/[facility]/ZIP Co de Phone Number [address] [phone] * (ABNORMAL) CK BLOOD (04/26/2019 12:42 PM CDT) CK Total 280(H) 30 - 200 Units/L 04/26/2019 1:43 PM CDT [facility] Blood BLOOD SPECIMEN / Unknown Lab Venipuncture / Unknown 04/26/2019 12:42 PM CDT 04/26/2019 1:19 PM CDT Judah Norton MD LAB - CHEMISTRY ORDIsaias LEONE [address] [phone] * CARDIAC PROCEDURE ORDER (11/27/2018 1:35 AM [...] - 106 mg/dL 11/26/2018 10:39 AM CDT [facility] Specimen Type UNKNOWN SAMPLE TYPE 11/26/2018 10:39 AM CDT [facility] Blood BLOOD SPECIMEN / Unknown 11/23/2018 2:11 PM CDT 11/26/2018 10:39 AM CDT Francisco Luque MD LAB - POINT OF CARE ORDERABLES [facility] [address] [phone] * (ABNORMAL) BASIC METABOLIC PANEL (CALCIUM TOTAL) (11/23/2018 3:25 AM CDT) Only the most recent of2 resultswithin the time period is included. Glucose 195(H) 74 - 106 mg/dL 11/23/2018 5:10 AM CDT [facility] Sodium 135(L) 136 - 145 mmol/L 11/23/2018 5:10 AM CDT [facility] Potassium 3.8 3.5 - 5.1 mmol/L 11/23/2018 5:10 AM CDT [facility] Chloride 104 98 - 107 mmol/L 11/23/2018 5:10 AM CDT [facility] CO2 23 23 - 31 mmol/L 11/23/2018 5:10 AM CDT [facility] Calcium 8.3(L) 8.4 - 10.2 mg/dL 11/23/2018 5:10 AM CDT [facility] Anion Gap 8 8 - 16 mmol/L 11/23/2018 5:10 AM CDT [facility] BUN 56(H) 8.4 - 25.7 mg/dL 11/23/2018 5:10 AM CDT [facility] Creatinine 2.74(H) 0.73 - 1.18 mg/dL 11/23/2018 5:10 AM CDT [facility] eGFR by MDRD 25(L) >60 mL/min/1.7 3m2 11/23/2018 5:10 AM CDT [facility] eGFR by MDRD 30(L) >60 mL/min/1.7 3m2 11/23/2018 5:10 AM CDT [facility] Blood BLOOD SPECIMEN / Unknown Venipuncture / Unknown 11/23/2018 3:25 AM CDT 11/23/2018 4:37 AM CDT Francisco Luque MD LAB - CHEMISTRY [facility] Organization Address City/State/ZIP Co de Phone Number [facility] [address] [place] [address] * CARDIAC CATH PROCEDURE (11/22/2018 12:00 PM CDT) 11/22/2018 12:0 0 PM CDT Narrative Procedure Note Francisco Luque MD - 11/23/2018 3:23 AM CDT [facility] CARDIAC CATHETERIZATION PATIENT: JUVENAL GARVIN MR#: [id number] ADMIT DATE: 11/22/2018 CSN: [id number] PROCEDURE DATE: 11/22/2018 :1970 PHYSICIAN: Francisco Luque Jr., MD ROOM: [facility] REFERRING PHYSICIAN: Francisco Luque Jr., MD PROCEDURE [...] sheath wasplaced in right femoral artery. A 5-Dutch #4 Kranthi left coronary catheterwas advanced in the left coronary ostium and left coronary arteriograms were performed in multiple projections. This catheter was removed and exchangedfor 5-Dutch #4 Kranthi right coronary catheter, was advanced in the right coronary ostium. Right coronary arteriography was performed in multiple projections. This catheter was removed. The decision was made to proceedwith intervention and therefore no left ventriculogram was performed to avoid excess dye in this patient with severe kidney disease. The arterial sheathwas exchanged for 6-Dutch sheath followed by advancement of a 6-Dutch #4Judkins right guide to the right coronary [...] descending artery. Injection of contrast reveals an [id number]% stenosis and mid 90% stenosis and a [...] gentleman. FRANCISCO LUQUE JR., MD RPR/MODL #: [id number] cc: Francisco Luque Jr., MD MEDICAL/SURGICAL CARDIAC [...] Region Laterality Modality Pelvis, Lower Extremity Radiogra [facility] 03/25/2015 8:09 PM CDT Impressions [...] [facility] NG ORDERABLES Care Teams Proof Coin Collector Relationship Specialty Start Date End Date Aditya Castro Update Information PCP - General 03/06/19
--- OUTSIDE RECORDS SUMMARY | 2024-09-07 18:57 | XMS_ITS | Encounter Summary ---
Author Organization [facility] Address [address] [facility] [place] [address] Care Team Providers Care Ladle Filler Name Role Phone Aditya Castro Primary Care Provider Unavailab le Reason for Visit * Reason Comments Kidney Transplant Evaluation Encounter Details Date Type Department Care Team (Late st Contact Info) Description 05/26/2020 Telephone [facility] [address] [place] [address] Carey Chavez Kidney Transplant Evaluation [...] on filedocumented in this encounter Care Teams Ladle Filler Relationship Specialty Start Date End Date Aditya Castro Update Information PCP - General 03/06/19 documented as of this encounter
--- OUTSIDE RECORDS SUMMARY | 2024-09-07 18:57 | XMS_ITS | Encounter Summary ---
Author Organization [facility] Address [address] [place] [address] Care Team Providers Care Rubber Mixer Name Role Phone Aditya Castro Primary Care Provider Unavailab le Reason for Visit * Reason Comments Refill Request Encounter Details Date Type Department Care Team (Late st Contact Info) Description 07/19/2020 Refill [facility] [address] [place] [address] Girish Vasques MD [address] [facility] [address] [place] [address] Refill Request Social History Tobacco Use Types [...] dermatitis documented in this encounter Care Teams Rubber Mixer Relationship Specialty Start Date End Date Aditya Castro Update Information PCP - General 03/06/19 documented as of this encounter
--- OUTSIDE RECORDS SUMMARY | 2024-09-07 18:57 | XMS_ITS | Encounter Summary ---
Author Organization [facility] Address [address] [place] [address] Care Team Providers Care Product Owner Name Role Phone Aditya Castro Primary Care Provider Unavailab le Reason for Visit * Reason Comments Kidney Transplant Evaluation Encounter Details Date Type Department Care Team (Latest Contact Info) Description 07/13/2020 2:00 PM COMPANY MARKER Office Visit [facility] [address] [place] [phone] Pre-transplant evaluation for kidney transplant (Primary Dx); Hypertensive chronic kidney disease with stage 5 chronic kidney disease or end stage renal disease (HCC); Type 2 diabetes mellitus with chronic kidney disease on chronic dialysis, unspecified whether retirement insulin use (HCC); End stage renal disease (HCC); Type 2 diabetes mellitus with diabetic chronic kidney disease, unspecified CKD stage, unspecified whether terminal operations supervisor insulin use (HCC); Hyperlipidemia, unspecified hyperlipidemia type; [...] Comments Blood Pressure 140/60 07/13/2020 1:30 PM COMPANY MARKER Pulse 65 07/13/2020 1:30 PM COMPANY MARKER Temperature 36.1 ??C (97 ??F) 07/13/2020 1:30 PM COMPANY MARKER Respiratory Rate 20 07/13/2020 1:30 PM COMPANY MARKER Oxygen Saturation 95% 07/13/2020 1:30 PM COMPANY MARKER Inhaled Oxygen Concentration - - Weight 134.3 kg (296 lb) 07/13/2020 1:30 PM COMPANY MARKER Height 176.5 cm (5' 9.5 ) 07/13/2020 1:30 PM COMPANY MARKER Body Mass Index 43.08 07/13/2020 1:30 PM COMPANY MARKER documented in this encounter Progress Notes * [...] risk, High KDPI, and Hep C kidneys. ANY MARKER * Maritza Hills MD - 07/13/2020 1:39 PM CST Images from the original note were not included. New Kidney Candidate Evaluation Note Juvenal Daigle 1970 [id number] Clinic Visit Date:07/13/2020 Referring MD: Leandro Hagen MD Chief Complaint: ESRD 2/2 T1DM Introductory: is a 49 year old with type 1 diabetes (diagnosed at age 13) as a primary cause of kidney disease. His extensive PMH is notable for obesity, CHF, CAH, IL s/p 4 stents to RCA,gout, HTN, HLD, [...] 12 hours as needed ??? epoetin (PROCRIT) 52543 UNIT/ML injection Inject subcutaneously every 14 days ??? ezetimibe (ZETIA) 10 MG tablet Take 10 mg by mouth once daily ??? febuxostat (ULORIC) 40 MG tablet Take 40 mg by mouth ??? ferrous sulfate EC (FERROUS SULFATE) 324 (65 Fe) MG tablet Take 324 mg by mouth once daily ??? fluticasone propionate (FLONASE) 50 MCG/ACT nasal spray [place] 1 spray into each nostril once daily [...] test strip ??? vitamin D, ergocalciferol, (DRISDOL) 79214 units capsule Take 50,000 Units by mouth [...] artery disease) ??? Community acquired pneumonia 2017 [facility] hospitalized with double pneumonia ??? Congestive heart failure ??? Coronary artery disease ??? Diabetes mellitus type 1 teens dx when he was 13. Insulin since he was dx. Insulin pump currently with dexacom. Vashti Vo splicing supervisor. ??? DM (diabetes mellitus) TYPE 1 ??? DVT (deep venous thrombosis) 2017 [facility]. ??? ESRD on peritoneal dialysis ??? Gout ??? History of blood transfusion 2017 during admission for IL ??? HLD (hyperlipidemia) ??? HTN (hypertension) ??? Hypercholesteremia 5 years on med ??? Hypertension 30's on medications. ??? Kidney disease ??? Myocardial infarction 2017 [facility]. Stent x1 placed. ??? Neuropathy feet ??? [...] results for input(s): MAGNESIUM in the last 96538 hours. Recent Labs Component Name 05/14/20 1018 PHOS 5.1* No results for input(s): TACROLIMUS, TACROCARDIO, TACROGASTRO, TACRONEPHRO in the last 76793 hours. Review of Imaging Reports [facility]: 08/26/2019 [...] procedures ?? Patient to follow up with [facility] weight loss clinic ?? Counseled regarding diet and exercise ?? Goal BMI: 35 (weight 241lbs) ?? Patient to follow up in txp clinic following weight loss ?? Patient will call with any questions or concerns in the interim Outstanding evaluation: -Patient education Maritza Hills MD 07/13/2020 3:41 PM ANY MARKER Associated attestation - Glenny Martin MD - 07/14/2020 3:55 PM COMPANY MARKER Supervising Physicians Attestation: I have personally seen [...] even after dietary advice - CAD/ CHF/ IL S/P x 4 stents, on PLAVIX - HTN - HLD - BEN - Last HgbA1c was 7.7. Questionable resting angina although recent cath revealed patent stents. A/P: At present not a candidate for renal transplant given his increasing weight and current BMI of43. - given information to contact the [facility] weight loss and surgery center. We will be contactingthe team to see how best he can be counseled and be followed up by them to determine if in the half-way he may be a candidate (if he [...] how the patient can be seen at [facility]. Glenny Martin MD pattern mechanic documented in this encounter Plan of Treatment [...] kidney disease on chronic dialysis, unspecified whether retirement insulin use (HCC) End stage renal disease (HCC) End stage renal disease Type 2 diabetes mellitus with diabetic chronic kidney disease, unspecified CKD stage, unspecified whether terminal operations supervisor insulin use (HCC) Hyperlipidemia, unspecified hyperlipidemia type Obstructive sleep apnea (adult) (pediatric) Obesity, unspecified classification, unspecified obesity type, unspecified whether serious comorbidity present documented in this encounter Care Teams Product Owner Relationship Specialty Start Date End Date Aditya Castro Update Information PCP - General 03/06/19 documented as of this encounter
--- OUTSIDE RECORDS SUMMARY | 2024-09-07 18:57 | XMS_ITS | Encounter Summary ---
Author Organization [facility] Address [address] [facility] [place] [address] Care Team Providers Care Spool Worker Name Role Phone Aditya Castro Primary Care Provider Unavailab le Reason for Visit * Reason Comments Kidney Transplant Evaluation Encounter Details Date Type Department Care Team (Late st Contact Info) Description 07/15/2020 Telephone [facility] [address] [place] [address] Anali Merino, RN Kidney Transplant [...] like for pt to reach out to [facility] bariatric program and pt notified to keep me up to date on his progress if he choices one of their programs. Pt can also follow up with our RD as well if needed for assistance. Pt notified team has given him a weight loss goal of 250 lbs to be re referred. Pt states understanding. ONOLOGIST documented in this encounter Plan of Treatment Not on file documented as of this encounter Visit Diagnoses Not on filedocumented in this encounter Care Teams Spool Worker Relationship Specialty Start Date End Date Aditya Castro Update Information PCP - General 03/06/19 documented as of this encounter
--- OUTSIDE RECORDS SUMMARY | 2024-09-07 18:57 | XMS_ITS | Encounter Summary ---
Author Organization [facility] Address [address] [facility] [place] [address] Care Team Providers Care Geoduck Diver Name Role Phone Aditya Castro Primary Care Provider Unavailab le Reason for Visit * Reason Comments Kidney Transplant Evaluation Encounter Details Date Type Department Care Team (Late st Contact Info) Description 07/10/2020 Telephone [facility] TR[facility] [address] [place] [phone] Girish Farmer Kidney Transplant Evaluation Social History [...] on filedocumented in this encounter Care Teams Geoduck Diver Relationship Specialty Start Date End Date Aditya Castro Update Information PCP - General 03/06/19 documented as of this encounter
--- OUTSIDE RECORDS SUMMARY | 2024-09-07 18:57 | XMS_ITS | Encounter Summary ---
Author Organization [facility] Address [address] [facility] [place] [address] Care Team Providers Care Shuttle Hand Name Role Phone Aditya Castro Primary Care Provider Unavailab le Encounter Details Date Type Department Care Team (Late st Contact Info) Description 10/16/2020 Orders Only [facility] - COVID Vaccine [address] [place] [phone] Carrington Leos MD [address] [place] [address] Need for vaccination Social History Tobacco Use [...] disease documented in this encounter Care Teams Shuttle Hand Relationship Specialty Start Date End Date Aditya Castro Update Information PCP - General 03/06/19 documented as of this encounter
--- OUTSIDE RECORDS SUMMARY | 2024-09-07 18:57 | XMS_ITS | Encounter Summary ---
Author Organization [facility] Address [address] [facility] [place] [address] Care Team Providers Care Television Director Name Role Phone Aditya Castro Primary Care Provider Unavailab le Reason for Visit * Reason Comments Kidney Transplant Evaluation Encounter Details Date Type Department Care Team (Late st Contact Info) Description 07/03/2020 Telephone [facility] TRANSPL[facility] [address] [place] [address] Carey Chavez Kidney Transplant Evaluation [...] his appt into epic. 07/03/2020 1:40 PM HT TESTER documented in this encounter Plan of Treatment Not on file documented as of this encounter Visit Diagnoses Not on filedocumented in this encounter Care Teams Television Director Relationship Specialty Start Date End Date Aditya Castro Update Information PCP - General 03/06/19 documented as of this encounter
--- OUTSIDE RECORDS SUMMARY | 2024-09-07 18:58 | XMS_ITS | Encounter Summary ---
Author Organization [facility] Address [address] [place] [address] Care Team Providers Care Division Sales Manager Name Role Phone Aditya Castro Primary Care Provider Unavailab le Reason for Visit * Radiology Services (Routine) - Closed Specialty Diagnoses / Procedures Referred By Aguilar lora Referred To Contact Diagnoses Pre-transplant evaluation for kidney transplant Procedures VAS ARTERIAL ANKLE ARM INDEX Glenny Martin MD [address] [place] [address] [facility] Kidney Transplant [address] [place] [address] Referral ID Status Reason Start Date Expiration Date Visits Re quested Visits Authorized [id number] Closed 05/14/2020 08/13/2020 1 1 Encounter Details Date Type Department Care Team (Late st Contact Info) Description 05/14/2020 10:40 AM CDT Hospital Encounter [facility] [address] [place] [phone] Glenny Martin MD [address] [facility] [place] [address] Discharge Disposition: Home or Self Care Social [...] 12 hours as needed 01/25/2019 epoetin (PROCRIT) 66745 UNIT/ML injection Inject subcutaneously every 14 days ezetimibe (ZETIA) 10 MG tablet Take 10 mg by mouth once daily febuxostat (ULORIC) 40 MG tablet Take 40 mg by mouth 02/25/2019 ferrous sulfate EC (FERROUS SULFATE) 324 (65 Fe) MG tablet Take 324 mg by mouth once daily 02/21/2019 fluticasone propionate (FLONASE) 50 MCG/ACT nasal spray [place] 1 spray into each nostril once daily [...] test strip 04/17/2019 vitamin D, ergocalciferol, (DRISDOL) 76986 units capsule Take 50,000 Units by mouth [...] transplant documented in this encounter Care Teams Division Sales Manager Relationship Specialty Start Date End Date Aditya Castro Update Information PCP - General 03/06/19 documented as of this encounter
--- OUTSIDE RECORDS SUMMARY | 2024-09-07 18:58 | XMS_ITS | Encounter Summary ---
Author Organization [facility] Address [address] [place] [address] Care Team Providers Care Solar Sales Consultant Name Role Phone Aditya [...] on filedocumented in this encounter Care Teams Solar Sales Consultant Relationship Specialty Start Date End Date Aditya Castro Update Information PCP - General 03/06/19 documented as of this encounter
--- OUTSIDE RECORDS SUMMARY | 2024-09-07 18:58 | XMS_ITS | Encounter Summary ---
Author Organization [facility] Address [address] [place] [address] Care Team Providers Care Cloth Folder Machine Name Role Phone Aditya Castro Primary Care Provider Unavailab le Encounter Details Date Type Department Care Team (Late st Contact Info) Description 03/20/2020 Orders Only [facility] TRANSPLANT [address] [place] [address] Anali Merino RN Pre-transplant evaluation for kidney [...] transplant documented in this encounter Care Teams Cloth Folder Machine Relationship Specialty Start Date End Date Aditya Castro Update Information PCP - General 03/06/19 documented as of this encounter
--- OUTSIDE RECORDS SUMMARY | 2024-09-07 18:58 | XMS_ITS | Encounter Summary ---
Author Organization [facility] Address [address] [place] [address] Care Team Providers Care Lathe Scalper Operator Name Role Phone Aditya Castro Primary Care Provider Unavailab le Reason for Visit * Reason Comments Kidney Transplant Evaluation Encounter Details Date Type Department Care Team (Late st Contact Info) Description 03/25/2020 Telephone [facility] TRANSPLANT [address] [place] [address] Carey Chavez Kidney Transplant Evaluation [...] on filedocumented in this encounter Care Teams Lathe Scalper Operator Relationship Specialty Start Date End Date Aditya Castro Update Information PCP - General 03/06/19 documented as of this encounter
--- OUTSIDE RECORDS SUMMARY | 2024-09-07 18:58 | XMS_ITS | Encounter Summary ---
Author Organization [facility] [address] [facility] [address] Care Team Providers Care Paint Booth Operator Name Role Phone Aditya Castro Primary Care Provider Unavailab le Reason for Referral * Radiology Services (Routine) - Closed Specialty Diagnoses / Procedures Referred By Aguilar lora Referred To Contact Diagnoses Pre-transplant evaluation for kidney transplant Procedures CT ABDOMEN AND PELVIS NON IV CONTRAST Glenny Martin MD [address] [place] [address] [facility] Transplant [address] [place] [phone] Referral ID Status Reason Start Date Expiration Date Visits Re quested Visits Authorized [id number] Closed 05/14/2020 08/13/2020 1 1 Reason for Visit * Radiology Services (Routine) - Closed Specialty Diagnoses / Procedures Referred By Aguilar lora Referred To Contact Diagnoses Pre-transplant evaluation for kidney transplant Procedures CT ABDOMEN AND PELVIS NON IV CONTRAST Glenny Martin MD [address] [place] [address] [facility] Transplant [address] [place] [phone] Referral ID Status Reason Start Date Expiration Date Visits Re quested Visits Authorized [id number] Closed 05/14/2020 08/13/2020 1 1 Encounter Details Date Type Department Care Team (Late st Contact Info) Description 05/14/2020 10:25 AM CDT - 05/14/2020 10:39 AM CDT Hospital Encounter [facility] [address] [place] [address] Glenny Martin MD [address] [facility] [place] [address] Discharge Disposition: Home or Self Care Social [...] 12 hours as needed 01/25/2019 epoetin (PROCRIT) 60711 UNIT/ML injection Inject subcutaneously every 14 days ezetimibe (ZETIA) 10 MG tablet Take 10 mg by mouth once daily febuxostat (ULORIC) 40 MG tablet Take 40 mg by mouth 02/25/2019 ferrous sulfate EC (FERROUS SULFATE) 324 (65 Fe) MG tablet Take 324 mg by mouth once daily 02/21/2019 fluticasone propionate (FLONASE) 50 MCG/ACT nasal spray [place] 1 spray into each nostril once [...] test strip 04/17/2019 vitamin D, ergocalciferol, (DRISDOL) 95776 units capsule Take 50,000 Units by mouth [...] calcifications. Aortic annulus calcifications. Dictated by Ash Moriera MD (associate professor of radiology). I, Dr. HANNAH SPENCE have personally reviewed [...] annulus calcifications. Dictated by Ash Moreira MD (associate professor of radiology). I, Dr. HANNAH SPENCE have personally reviewed and interpreted this examination/study. This report was electronically signed by HANNAH SPENCE on 05/14/20205:03 PM . Glenny Martin MD CT ORDERABLES documented in this encounter Visit Diagnoses Diagnosis Pre-transplant evaluation for kidney transplant documented in this encounter Care Teams Paint Booth Operator Relationship Specialty Start Date End Date Aditya Castro Update Information PCP - General 03/06/19 documented as of this encounter
--- OUTSIDE RECORDS SUMMARY | 2024-09-07 18:58 | XMS_ITS | Encounter Summary ---
Author Organization [facility] Address [address] [place] [address] Care Team Providers Care White Hat Hacker Name Role Phone Aditya Castro Primary Care Provider Unavail le Encounter Details Date Type Department Care Team (Latest Contact Info) Description 04/26/2019 12:20 PM CDT - 04/26/2019 12:53 PM CDT Hospital Encounter [facility] [address] [place] [phone] Judah Norton MD [address] [facility] 2L [place] [address] Discharge Disposition: Home or Self Care Social [...] fluticasone propionate (FLONASE) 50 MCG/ACT nasal spray [place] 1 spray into each nostril once daily [...] test strip 04/17/2019 vitamin D, ergocalciferol, (DRISDOL) 33758 units capsule Take 50,000 Units by mouth [...] IGG/IGA (CCP) (04/26/2019 12:42 PM CDT) Pathologist [facility] CCP Antibodies IgG/IgA 17 0 - 19 units 04/29/2019 9:06 PM CDT [facility] ([facility]) Comment: ?Negative ? <20 ?Weak positive ?20 - 39 ?Moderate positive ??40 - 59 ?Strong positive ?>59 Blood BLOOD SPECIMEN / Unknown Lab Venipuncture / Unknown 04/26/2019 12:42 PM CDT 04/26/2019 1:18 PM CDT Narrative [facility] ([facility]) - 04/29/2019 9:06 PM CDT Performed at: ??[address] ??[id number] Account Support Analyst: Con Grimaldo MD, Phone: ??[phone] Judah Norton MD LAB - SEROLOGY ORDER ROVERTO Performing Organization Address City/[facility]/ZIP Co de Phone Number [facility] ([facility]) [address] [id number] * RHEUMATOID FACTOR BLOOD QUANTITATIVE (04/26/2019 12:42 PM CDT) [facility] Rheumatoid Factor <15 <30 IU/mL 04/26/2019 2:34 PM CDT [facility] LABORATORY [facility] Blood BLOOD SPECIMEN / Unknown Lab Venipuncture / Unknown 04/26/2019 12:42 PM CDT 04/26/2019 1:18 PM CDT Judah Norton MD LAB - CHEMISTRY [place] [address] [phone] * SS-B (SJOGREN'S) ANTIBODY (04/26/2019 12:42 PM CDT) [facility] SS-B LA Antibody 2.8 0.0 - 19.9 Units 04/30/2019 9:45 AM CDT [facility] Comment: JOSE ENRIQUE Antibody Numeric Result Interpretation: ?<20.0 Units: ??Negative ?20.0 - 39.0 Units: ??Weakly Positive ?>39.0 Units: ??Positive ? Blood BLOOD SPECIMEN / Unknown Lab Venipuncture / Unknown 04/26/2019 12:42 PM CDT 04/26/2019 1:19 PM CDT Judah Norton MD LAB - CHEMISTRY [place]ONE Performing Organization Address [facility] Co de Phone Number [address] [phone] * SS-A (SJOGREN'S) ANTIBODY (04/26/2019 12:42 PM CDT) [facility] SS-A (Ro) Antibody 2.7 0.0 - 19.9 Units 04/30/2019 9:45 AM CDT [facility] Comment: JOSE ENRIQUE Antibody Numeric Result Interpretation: ?<20.0 Units: ??Negative ?20.0 - 39.0 Units: ??Weakly Positive ?>39.0 Units: ??Positive ? Blood BLOOD SPECIMEN / Unknown Lab Venipuncture / Unknown 04/26/2019 12:42 PM CDT 04/26/2019 1:19 PM CDT Judah Norton MD LAB - CHEMISTRY [place] Performing Organization Address [facility]/ZIP Co de Phone Number [facility] [address] [phone] * SHAWN BLOOD SCREEN W/REFLEX TITER (04/26/2019 12:42 PM CDT) SH[facility]N Negative 04/27/2019 3:07 PM CDT [facility] ([facility]) Comment: ? Negative ?? <1:80 ? Borderline ??1:80 ? Positive ?? >1:80 Blood BLOOD SPECIMEN / Unknown Lab Venipuncture / Unknown 04/26/2019 12:42 PM CDT 04/26/2019 1:18 PM CDT Narrative [facility] ([facility]) - 04/27/2019 3:07 PM CDT Performed at: ??01 - [facility] [address] [place], [place] ??[id number] Account Support Analyst: Mehdi Del Angel PhD, Phone: ??[phone] Judah Norton MD LAB - CHEMISTRY [place] Performing Organization Address [facility] Co de Phone Number [facility] ([facility]) [address] [place] [address] * (ABNORMAL) VITAMIN D 25-HYDROXY (04/26/2019 12:42 PM CDT) Pathologist [facility] Vitamin D, 25 Hydroxy 15.1(L) See comment: ng/mL 04/26/2019 2:25 PM CDT [facility] Comment: The recommendations for [...] Norton MD LAB - CHEMISTRY [place] LE[facility] Organization Address City/State/ZIP Co de Phone Number [address] [phone] * (ABNORMAL) URINALYSIS W/MICROSCOPIC NO CULTURE (04/26/2019 12:42 PM CDT) Color UA Yellow Straw, Yellow, Colorless 04/26/2019 1:31 PM CDT [facility] Clarity UA Slt Cloudy Clear, Slt Cloudy 04/26/2019 1:31 PM T [facility] Specific Prentiss UA 1.013 1.005 - 1.030 04/26/2019 1:31 PM CDT [facility] pH UA 5.0 5.0 - 8.0 pH 04/26/2019 1:31 PM T [facility] Protein UA 2+(A) Negative mg/dL 04/26/2019 1:31 PM T [facility] Glucose UA 1+(A) Negative mg/dL 04/26/2019 1:31 PM CDT [facility] Ketone UA Negative Negative mg/dL 04/26/2019 1:31 PM T [facility] Bilirubin UA Negative Negative mg/dL 04/26/2019 1:31 PM CDT [facility] Blood UA Negative Negative 04/26/2019 1:31 PM T [facility] Nitrite UA Negative Negative 04/26/2019 1:31 PM T [facility] Leukocyte Esterase Negative Negative 04/26/2019 1:31 PM T [facility] Urobilinogen UA Negative Negative mg/dL 04/26/2019 1:31 PM T [facility] RBC UA 0-2 None Seen, 0-2, 3-5 /HPF 04/26/2019 1:31 PM T [facility] WBC UA 0-5 None Seen, 0-5 /HPF 04/26/2019 1:31 PM T [facility] Squamous Epithelial Cells UA 0-2 None Seen, 0-2 /HPF 04/26/2019 1:31 PM T [facility] Mucus UA 1+ None, 1+ /LPF 04/26/2019 1:31 PM T [facility] Hyaline Casts UA 11-20(A) None Seen, 0-2 /LPF 04/26/2019 1:31 PM CDT [facility] Urine URINE SPECIMEN OBTAINED BY CLEAN CATCH PROCEDURE / Unknown Collection / Unknown 04/26/2019 12:42 PM CDT 04/26/2019 1:18 PM CDT Narrative [facility] - 04/26/2019 1:31 PM CDT Jduah Norton MD LAB - URINALYSIS ORD ERABLES Performing Organization Address City/State/[facility] Co de Phone Number [facility] [address] [place] [address] * (ABNORMAL) ERYTHROCYTE SEDIMENTATION RATE (04/26/2019 12:42 PM CDT) Erythrocyte Sedimentation Rate Westergren 34(H) 0 - 20 MM/HR 04/26/2019 1:31 PM CDT [facility] Blood BLOOD SPECIMEN / Unknown Lab Venipuncture / Unknown 04/26/2019 12:42 PM CDT 04/26/2019 1:19 PM CDT Judah Norton MD LAB - HEMATOLOGY ORD ERABLES [facility] [address] [place] [address] * C-REACTIVE PROTEIN (04/26/2019 12:42 PM CDT) [facility] C-Reactive Protein <0.5 <=0.5 mg/dL 04/26/2019 2:21 PM T [facility] Blood BLOOD SPECIMEN / Unknown Lab Venipuncture / Unknown 04/26/2019 12:42 PM CDT 04/26/2019 1:19 PM CDT Judah Norton MD LAB - CHEMISTRY [place] [address] [phone] * (ABNORMAL) COMPREHENSIVE METABOLIC PANEL (04/26/2019 12:42 PM CDT) [facility] BUN 72(H) 7 - 26 mg/dL 04/26/2019 [...] Norton MD LAB - CHEMISTRY [place]US[place] LEONE [facility] Organization Address City/State/ZIP Co de Phone Number [address] [phone] * (ABNORMAL) CBC WITH DIFFERENTIAL (04/26/2019 12:42 [...] 10? 3 /uL 04/26/2019 1:22 PM CDT [facility] LABORATORY [facility] Basophils Absolute 0.03 0.00 - 0.06 10? 3 /uL 04/26/2019 1:22 PM CDT [facility] Immature Granulocytes % 0.4 0.0 - 1.0 % 04/26/2019 1:22 PM CDT [facility] Blood BLOOD SPECIMEN / Unknown Lab Venipuncture / Unknown 04/26/2019 12:42 PM CDT 04/26/2019 1:19 PM CDT Judah Norton MD LAB - HEMATOLOGY ORD ERASANDRA [address] [phone] * (ABNORMAL) CK BLOOD (04/26/2019 12:42 PM CDT) CK Total 280(H) 30 - 200 Units/L 04/26/2019 1:43 PM CDT [facility] Blood BLOOD SPECIMEN / Unknown Lab Venipuncture / Unknown 04/26/2019 12:42 PM CDT 04/26/2019 1:19 PM CDT Judah Norton MD LAB - CHEMISTRY [place] [address] [phone] * (ABNORMAL) LDH BLOOD (04/26/2019 12:42 PM CDT) LDH Total 268(H) 125 - 243 Units/L 04/26/2019 1:43 PM CDT [facility] Blood BLOOD SPECIMEN / Unknown Lab Venipuncture / Unknown 04/26/2019 12:42 PM CDT 04/26/2019 1:19 PM CDT Judah Norton MD LAB - CHEMISTRY [place] [address] [phone] * ALDOLASE (04/26/2019 12:42 PM CDT) Aldolase 6.9 3.3 - 10.3 U/L 04/29/2019 3:08 PM CDT [facility] ([facility]) Blood BLOOD SPECIMEN / Unknown Lab Venipuncture / Unknown 04/26/2019 12:42 PM CDT 04/26/2019 1:18 PM CDT Narrative [facility] ([facility]) - 04/29/2019 3:08 PM CDT Performed at: ??01 - [facility] [place] [address] [place], [place] ??[id number] Account Support Analyst: Mehdi Del Angel PhD, Phone: ??[phone] Judah Norton MD LAB - CHEMISTRY [place] LEONE Performing Organization Address City/[facility]/ZIP Co de Phone Number [facility] [address] [place] [address] * URIC ACID BLOOD (04/26/2019 12:42 PM CDT) Uric Acid 4.4 2.6 - 7.2 mg/dL 04/26/2019 2:13 PM CDT [facility]AT[facility] Blood BLOOD SPECIMEN / Unknown Lab Venipuncture / Unknown 04/26/2019 12:42 PM CDT 04/26/2019 1:19 PM CDT Judah Norton MD LAB - CHEMISTRY SUSANNA[place] LEONE [facility] [address] [phone] documented in this encounter Visit Diagnoses Diagnosis Gout, unspecified cause, unspecified chronicity, unspecified site [place], unspecified type (HCC) documented in this encounter Care Teams White Hat Hacker Relationship Specialty Start Date End Date Aditya Castro Update Information PCP - General 03/06/19 documented as of this encounter
--- OUTSIDE RECORDS SUMMARY | 2024-09-07 18:58 | XMS_ITS | Encounter Summary ---
Author Organization [facility] Address [address] [place] [address] Care Team Providers Care Web Applications Programmer Name Role Phone Jhonatan Bellamy MD Primary Care Provider [phone] Encounter Details Date Type Department Care Team (Latest Contact Info) Description 03/25/2015 5:00 PM CDT - 03/25/2015 11:59 PM CDT Hospital Encounter [facility] [address] [place] [address] Yamilet Valerio PA [address] [place] [address] Discharge Disposition: Home or Self [...] Region Laterality Modality Pelvis, Lower Extremity Radiogra [facility] 03/25/2015 8:09 PM CDT Impressions 03/25/2015 [...] unspecified documented in this encounter Care Teams Web Applications Programmer Relationship Specialty Start Date End Date Jhonatan Bellamy MD [address] [place], [place] [phone] PCP - General Family Medicine 03/25/15 03/05/19 documented as of this encounter
--- OUTSIDE RECORDS SUMMARY | 2024-09-07 18:58 | XMS_ITS | Encounter Summary ---
Author Organization [facility] Address [address] [address] Care Team Providers Care Supervisor Volunteer Services Name Role Phone Jhonatan Bellamy MD Primary Care Provider [phone] Reason for Visit * Auth/Cert Specialty Diagnoses / Procedures Referred By Contac t Referred To Contact Diagnoses chest pain shortness of breath Referral ID Status Reason Start Date Expiration Date Visits Re quested Visits Authorized [id number] 1 1 Encounter Details Date Type Department Care Team (Latest Contact Info) Description 11/22/2018 7:13 AM CDT - 11/23/2018 6:30 PM CDT Hospital Encounter [facility] 2N TELE/ONCOLOGY [address] [place] [address] Francisco Luque MD [address] [place] [address] Cardiac Catheterization Discharge Disposition: Home or Self [...] 11/23/2018 11:02 AM CDT Physician Discharge Summary [facility] Patient ID: Juvenal Garvin [id number] 48 year old 1970 Admit date: 11/22/2018 [...] Comments Your discharge diagnosis is: Coronary arteriosclerosis [689525] Follow up with Primary Care Provider (PCP) [...] am 2.74 Per nursing assessments: Transportation (who): Desk Reporter/Support: Desk Reporter/Support Person - Relationship:: Lorne- Brother Desk Reporter person: Home/Functional Status: Equipment with patient: None Assistive Devices: None ?. Will continue to follow. For any questions or needs please contact: Machine Fixer Name/Phone number: Janee Ruelas RN * Dimitrios Narvaez RN - 11/23/2018 12:50 AM CDT Problem: Incision Care Goal: Signs and symptoms of infections are decreased or avoided Outcome: Ongoing 11/22/18 2330 Precautions Implemented Precautions None * Francisco Luque MD - 11/22/2018 8:13 AM CDT CARDIAC REFERENCE ARCHIVIST INDICATIONS PRE PROCEDURE H&P and AUC TOOL [...] for performance of procedure. Monitoring: heart rate, log handler, continuous pulse oximetry, frequent blood pressure checks,level of consciousness, IV access, constant attendance by RN until patient recovered, and emergencyairway equipment available. Based on the above criteria, I believe that patient meets clinical indications for a cardiac catheterization. Francisco Luque MD 11/22/2018 8:13 AM documented in this encounter Procedure Notes * Francisco Luque MD - 11/23/2018 3:23 AM CDTAssociated Order(s): CARDIAC CATH [facility] PATIENT: JUVENAL GARVIN MR#: [id number] ADMIT DATE: 11/22/2018 CSN: [id number] PROCEDURE DATE: 11/22/2018 : 1970 PHYSICIAN: Francisco Luque Jr., MD ROOM: [facility] REFERRING PHYSICIAN: Francisco Luque Jr., MD PROCEDURE [...] was placed in right femoral artery. A 5-Stateless #4 Kranthi left coronary catheter was advanced in the left coronary ostium and left coronary arteriograms were performed in multiple projections. This catheter was removed and exchanged for 5-Stateless #4 Kranthi right coronary catheter, was advanced in the right coronary ostium. Right coronary arteriography was performed in multiple projections. This catheter was removed. The decision was made to proceed with intervention and therefore no left ventriculogram was performed to avoid excess dye in this patient with severe kidney disease. The arterial sheath was exchanged for 6-Stateless sheath followed by advancement of a 6-Stateless #4 Kranthi right guide to the right [...] gentleman. FRANCISCO LUQUE JR., MD RPR/MODL #: [id number] cc: Francisco Luque Jr., MD MEDICAL/SURGICAL CARDIAC CATHETERIZATION - [facility] documented in this encounter Miscellaneous Notes * Significant Event - Kristie Lizama - 11/23/2018 11:31 AM CDT Nursing Hypoglycemia Note Juvenal Garvin [id number] Date of occurrence: 11/23/2018 Time of occurrence: [...] Lab Values Lab Results Component Value Date/Time [id number] 31 (LL) 11/23/2018 11:19 AM [id number] 469 (HH) 11/22/2018 09:29 PM [id number] 316 (H) 11/22/2018 03:05 PM [id number] 123 (H) 11/22/2018 12:14 PM Lab Results [...] CONSIST CARB CARDIAC Pertinent administrations from the [facility] Related Administrations from [facility] (last 12 hours) Date/Time Action User Medication [...] 3:25 AM CDT 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, unspecified vessel [...] 7:33 AM CDT 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, unspecified vessel [...] POINT OF CARE (11/23/2018 2:11 PM CDT) [facility] Glucose WB/POC 192(H) 70 - 106 mg/dL 11/26/2018 10:39 AM CDT [facility] Specimen Type UNKNOWN SAMPLE TYPE 11/26/2018 10:39 AM CDT [facility] Blood BLOOD SPECIMEN / Unknown 11/23/2018 2:11 PM CDT 11/26/2018 10:39 AM CDT Francisco Luque MD LAB - POINT OF CARE ORDERABLES Performing Organization Address [facility] Co de Phone Number [facility] [address] [place] [phone] * GLUCOSE - POINT OF CARE (11/23/2018 12:00 PM CDT) Glucose WB/POC 90 70 - 106 mg/dL 11/23/2018 5:57 PM CDT [facility] Blood BLOOD SPECIMEN / Unknown 11/23/2018 12:00 PM CDT 11/23/2018 5:57 PM CDT Francisco Luque MD LAB - POINT OF CARE ORDERABLES Performing Organization Address [facility] de Phone Number [facility] [address] [place] [phone] * (ABNORMAL) GLUCOSE - POINT OF CARE (11/23/2018 11:23 AM CDT) Glucose WB/POC 35(LL) 70 - 106 mg/dL 11/23/2018 5:57 PM CDT [facility] Blood BLOOD SPECIMEN / Unknown 11/23/2018 11:23 AM CDT 11/23/2018 5:57 PM CDT Francisco Luque MD LAB - POINT OF CARE ORDERABLES Performing Organization Address [facility] Co de Phone Number [facility] [address] [place] [phone] * (ABNORMAL) GLUCOSE - POINT OF CARE (11/23/2018 11:19 AM CDT) Glucose WB/POC 31(LL) 70 - 106 mg/dL 11/23/2018 11:26 AM CDT [facility] Blood BLOOD SPECIMEN / Unknown 11/23/2018 11:19 AM CDT 11/23/2018 11:26 AM CDT Francisco Luque MD LAB - POINT OF CARE ORDERABLES Performing Organization Address [facility] de Phone Number [facility] [address] [place], [place] [phone] * GLUCOSE - POINT OF CARE (11/23/2018 7:48 AM CDT) Glucose WB/POC 81 70 - 106 mg/dL 11/23/2018 11:51 PM CDT [facility] Blood BLOOD SPECIMEN / Unknown 11/23/2018 7:48 AM CDT 11/23/2018 11:51 PM CDT Francisco Luque MD LAB - POINT OF CARE ORDERABLES Performing Organization Address [facility] de Phone Number [facility] [address] [place] [address] * (ABNORMAL) HEMOGLOBIN A1C (11/23/2018 3:25 AM CDT) Hemoglobin A1c 7.5(H) 4.0 - 6.1 % 11/23/2018 4:12 AM CDT [facility] Estimated Average Glucose 169 mg/dL 11/23/2018 4:12 AM CDT [facility] Blood BLOOD SPECIMEN / Unknown Venipuncture / Unknown 11/23/2018 3:25 AM CDT 11/23/2018 3:57 AM CDT Narrative [facility] - 11/23/2018 4:12 AM CDT Attention clinician: ??Reference Range has changed. Francisco Luque MD LAB - CHEMISTRY SUSANNAH LEONE Performing Organization Address [facility] de Phone Number [facility] [address] [place] [address] * (ABNORMAL) BASIC METABOLIC PANEL (CALCIUM TOTAL) (11/23/2018 3:25 AM CDT) Glucose 195(H) 74 - 106 mg/dL 11/23/2018 5:10 AM CDT [facility] Sodium 135(L) 136 - 145 mmol/L 11/23/2018 5:10 AM CDT [facility] Potassium 3.8 3.5 - 5.1 mmol/L 11/23/2018 5:10 AM CDT [facility] Chloride 104 98 - 107 mmol/L 11/23/2018 5:10 AM CDT [facility] CO2 23 23 - 31 mmol/L 11/23/2018 5:10 AM CDT [facility] Calcium 8.3(L) 8.4 - 10.2 mg/dL 11/23/2018 5:10 AM CDT [facility] Anion Gap 8 8 - 16 mmol/L 11/23/2018 5:10 AM CDT [facility] BUN 56(H) 8.4 - 25.7 mg/dL 11/23/2018 5:10 AM CDT [facility] Creatinine 2.74(H) 0.73 - 1.18 mg/dL 11/23/2018 5:10 AM CDT [facility] eGFR by MDRD 25(L) >60 mL/min/1.7 3m2 11/23/2018 5:10 AM CDT [facility] eGFR by MDRD 30(L) >60 mL/min/1.7 3m2 11/23/2018 5:10 AM CDT [facility] Blood BLOOD SPECIMEN / Unknown Venipuncture / Unknown 11/23/2018 3:25 AM CDT 11/23/2018 4:37 AM CDT Francisco Luque MD LAB - CHEMISTRY [facility] Performing Organization Address City/[facility]/ZIP Co de Phone Number [facility] [address] [place], [place] [phone] * (ABNORMAL) GLUCOSE - POINT OF CARE (11/22/2018 9:29 PM CDT) [facility] Glucose WB/POC 469(HH) 70 - 106 mg/dL 11/22/2018 9:35 PM CDT [facility] Blood BLOOD SPECIMEN / Unknown 11/22/2018 9:29 PM CDT 11/22/2018 9:35 PM CDT Narrative [facility] - 11/22/2018 9:35 PM CDT CAPILLARY BLOOD Francisco Luque MD LAB - POINT OF CARE ORDERABLES [facility] [address] [place] [address] * (ABNORMAL) GLUCOSE - POINT OF CARE (11/22/2018 4:55 PM CDT) Glucose WB/POC 427(H) 70 - 106 mg/dL 11/26/2018 10:06 AM CDT [facility] Specimen Type UNKNOWN SAMPLE TYPE 11/26/2018 10:06 AM CDT [facility] Blood BLOOD SPECIMEN / Unknown 11/22/2018 4:55 PM CDT 11/26/2018 10:06 AM CDT Francisco Luque MD LAB - POINT OF CARE ORDERABLES Performing Organization Address City/[facility]/ZIP Co de Phone Number [facility] [address] [place] [address] * (ABNORMAL) GLUCOSE - POINT OF CARE (11/22/2018 3:05 PM CDT) Glucose WB/POC 316(H) 70 - 106 mg/dL 11/22/2018 5:37 PM CDT [facility] Blood BLOOD SPECIMEN / Unknown 11/22/2018 3:05 PM CDT 11/22/2018 5:37 PM CDT Francisco Luque MD LAB - POINT OF CARE ORDERABLES Performing Organization Address [facility] Co de Phone Number [facility] [address] [place] [phone] * (ABNORMAL) GLUCOSE - POINT OF CARE (11/22/2018 12:14 PM CDT) Glucose WB/POC 123(H) 70 - 106 mg/dL 11/22/2018 12:15 PM CDT [facility] Blood BLOOD SPECIMEN / Unknown 11/22/2018 12:14 PM CDT 11/22/2018 12:15 PM CDT Francisco Luque MD LAB - POINT OF CARE ORDERABLES Performing Organization Address [facility]/ZIP Co de Phone Number [facility] [address] [place] [phone] * CARDIAC CATH PROCEDURE (11/22/2018 12:00 PM CDT) 11/22/2018 12:0 0 PM CDT Narrative Procedure Note Francisco Luque MD - 11/23/2018 3:23 AM CDT [facility] PATIENT: JUVENAL GARVIN MR#: [id number] ADMIT DATE: 11/22/2018 CSN: [id number] PROCEDURE DATE: 11/22/2018 :1970 PHYSICIAN: Francisco Luque Jr., MD ROOM: [facility] REFERRING PHYSICIAN: Francisco Luque Jr., MD PROCEDURE [...] sheath wasplaced in right femoral artery. A 5-Stateless #4 Kranthi left coronary catheterwas advanced in the left coronary ostium and left coronary arteriograms were performed in multiple projections. This catheter was removed and exchangedfor 5-Stateless #4 Kranthi right coronary catheter, was advanced in the right coronary ostium. Right coronary arteriography was performed in multiple projections. This catheter was removed. The decision was made to proceedwith intervention and therefore no left ventriculogram was performed to avoid excess dye in this patient with severe kidney disease. The arterial sheathwas exchanged for 6-Stateless sheath followed by advancement of a 6-Stateless #4Judkins right guide to the right coronary [...] descending artery. Injection of contrast reveals an ioybmrmyblmhb66% stenosis and mid 90% stenosis and a [...] gentleman. FRANCISCO LUQUE JR., MD RPR/MODL #: [id number] cc: Francisco Luque Jr., MD MEDICAL/SURGICAL CARDIAC CATHETERIZATION - [facility] Francisco Luque MD CARDIAC SERVICES ORD ERABLES [facility] * GLUCOSE - POINT OF CARE (11/22/2018 9:30 AM CDT) Glucose WB/POC 70 70 - 106 mg/dL 11/22/2018 9:33 AM CDT [facility] Specimen Type CAPILLARY BLOOD 11/22/2018 9:33 AM CDT [facility] Blood BLOOD SPECIMEN / Unknown 11/22/2018 9:30 AM CDT 11/22/2018 9:33 AM CDT Francisco Luque MD LAB - POINT OF CARE ORDERABLES [facility] [address] [place] [address] * (ABNORMAL) BASIC METABOLIC PANEL (CALCIUM TOTAL) (11/22/2018 7:33 AM CDT) Glucose 45(LL) 74 - 106 mg/dL 11/22/2018 8:04 AM CDT [facility] Sodium 139 136 - 145 mmol/L 11/22/2018 8:04 AM CDT [facility] Potassium 4.6 3.5 - 5.1 mmol/L 11/22/2018 8:04 AM CDT [facility] Chloride 108(H) 98 - 107 mmol/L 11/22/2018 8:04 AM CDT [facility] CO2 21(L) 23 - 31 mmol/L 11/22/2018 8:04 AM CDT [facility] Calcium 9.1 8.4 - 10.2 mg/dL 11/22/2018 8:04 AM CDT [facility] Anion Gap 10 8 - 16 mmol/L 11/22/2018 8:04 AM CDT [facility] BUN 65(H) 8.4 - 25.7 mg/dL 11/22/2018 8:04 AM CDT [facility] Creatinine 3.04(H) 0.73 - 1.18 mg/dL 11/22/2018 8:04 AM CDT [facility] eGFR by MDRD 22(L) >60 mL/min/1.7 3m2 11/22/2018 8:04 AM CDT [facility] eGFR by MDRD 27(L) >60 mL/min/1.7 3m2 11/22/2018 8:04 AM CDT [facility] Blood BLOOD SPECIMEN / Unknown Venipuncture / Unknown 11/22/2018 7:33 AM CDT 11/22/2018 7:38 AM CDT Francisco Luque MD LAB - CHEMISTRY SUSANNAH LEONE [facility] Organization Address City/State/[facility] Co de Phone Number [facility] [address] [place] [address] documented in this encounter Visit Diagnoses Diagnosis 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 documented in this encounter Care Teams Supervisor Volunteer Services Relationship Specialty Start Date End Date Jhonatan Bellamy MD [address] [place] [address] PCP - General Family Medicine 03/25/15 03/05/19 documented as of this encounter
--- OUTSIDE RECORDS SUMMARY | 2024-09-07 18:58 | XMS_ITS | Encounter Summary ---
Author Organization [facility] Address [address] [facility] [place] [address] Care Team Providers Care Support Services Rep Name Role Phone Aditya Castro Primary Care Provider Unavailab le Reason for Visit * Reason Comments Kidney Transplant Evaluation Encounter Details Date Type Department Care Team (Late st Contact Info) Description 02/04/2020 Telephone [facility] TRANSPLANT [address] [place] [address] Gracie Chambers, RN Kidney Transplant [...] mention of PHTN. Stated it wasdone at [facility]. He also said that he was [...] an echo some time in 2019 at [facility]. Will request before proceeding with referral. documented in this encounter Plan of Treatment Not on file documented as of this encounter Visit Diagnoses Not on filedocumented in this encounter Care Teams Support Services Rep Relationship Specialty Start Date End Date Aditya Castro Update Information PCP - General 03/06/19 documented as of this encounter
--- OUTSIDE RECORDS SUMMARY | 2024-09-07 18:58 | XMS_ITS | Encounter Summary ---
Author Organization [facility] Address [address] [place] [address] Care Team Providers Care Synthetic Gem Press Operator Name Role Phone Aditya Castro Primary Care Provider Unavailab le Reason for Visit * Reason Comments Kidney Transplant Evaluation Encounter Details Date Type Department Care Team (Late st Contact Info) Description 05/12/2020 Telephone [facility] TRANSPLANT [address] [place] [phone] Magali Ramos Kidney Transplant Evaluation Social History [...] on filedocumented in this encounter Care Teams Synthetic Gem Press Operator Relationship Specialty Start Date End Date Aditya Castro Update Information PCP - General 03/06/19 documented as of this encounter
--- OUTSIDE RECORDS SUMMARY | 2024-09-07 18:58 | XMS_ITS | Encounter Summary ---
Author Organization [facility] Address [address] [address] Care Team Providers Care Charger Operator Helper Name Role Phone Aditya Castro Primary Care Provider Unavailab le Reason for Visit * Reason Comments Refill Request Encounter Details Date Type Department Care Team (Late st Contact Info) Description 10/11/2019 Refill [facility] [address] [place] [address] Girish Vasques MD [address] [facility] [address] [place] [address] Refill Request Social History Tobacco Use Types [...] [place] 04/11/19 No follow up Anali Connelly TRANSPORT documented in this encounter Plan of Treatment Not on file documented as of this encounter Visit Diagnoses Diagnosis Other seborrheic dermatitis documented in this encounter Care Teams Charger Operator Helper Relationship Specialty Start Date End Date Aditya Castro Update Information PCP - General 03/06/19 documented as of this encounter
--- OUTSIDE RECORDS SUMMARY | 2024-09-07 18:58 | XMS_ITS | Encounter Summary ---
Author Organization [facility] Address [address] [facility] [place] [address] Care Team Providers Care Food And Drink Factory Workers Name Role Phone Aditya Castro Primary Care Provider Unavailab le Reason for Visit * Radiology Services (Routine) - Closed Specialty Diagnoses / Procedures Referred By Aguilar lora Referred To Contact Diagnoses Pre-transplant evaluation for kidney transplant Procedures VAS BILATERAL VENOUS DUPLEX LE Glenny Martin MD [address] [place] [address] [facility] Transplant [address] [place] [address] Referral ID Status Reason Start Date Expiration Date Visits Re quested Visits Authorized [id number] Closed 05/14/2020 08/13/2020 1 1 Encounter Details Date Type Department Care Team (Late st Contact Info) Description 05/14/2020 10:40 AM CDT Hospital Encounter [facility] VASCULAR US [address] [place] [phone] Glenny Martin MD [address] [facility] [place] [place] [address] Discharge Disposition: Home or Self Care Social [...] 12 hours as needed 01/25/2019 epoetin (PROCRIT) 98062 UNIT/ML injection Inject subcutaneously every 14 days ezetimibe (ZETIA) 10 MG tablet Take 10 mg by mouth once daily febuxostat (ULORIC) 40 MG tablet Take 40 mg by mouth 02/25/2019 ferrous sulfate EC (FERROUS SULFATE) 324 (65 Fe) MG tablet Take 324 mg by mouth once daily 02/21/2019 fluticasone propionate (FLONASE) 50 MCG/ACT nasal spray [place] 1 spray into each nostril once daily [...] test strip 04/17/2019 vitamin D, ergocalciferol, (DRISDOL) 99732 units capsule Take 50,000 Units by mouth [...] transplant documented in this encounter Care Teams Food And Drink Factory Workers Relationship Specialty Start Date End Date Aditya Castro Update Information PCP - General 03/06/19 documented as of this encounter
--- OUTSIDE RECORDS SUMMARY | 2024-09-07 18:58 | XMS_ITS | Encounter Summary ---
Author Organization [facility] Address [address] [facility] [place] [address] Care Team Providers Care Rand Butter Name Role Phone Aditya Castro Primary Care Provider Unavailab le Encounter Details Date Type Department Care Team (Late st Contact Info) Description 05/14/2020 7:26 AM CDT Hospital Encounter [facility] DIAGNOSTIC RAD OP [address] [place] [phone] Glenny Martin MD [facility] [place] [address] Discharge Disposition: Home or Self Care Social [...] 12 hours as needed 01/25/2019 epoetin (PROCRIT) 47775 UNIT/ML injection Inject subcutaneously every 14 days ezetimibe (ZETIA) 10 MG tablet Take 10 mg by mouth once daily febuxostat (ULORIC) 40 MG tablet Take 40 mg by mouth 02/25/2019 ferrous sulfate EC (FERROUS SULFATE) 324 (65 Fe) MG tablet Take 324 mg by mouth once daily 02/21/2019 fluticasone propionate (FLONASE) 50 MCG/ACT nasal spray [place] 1 spray into each nostril once daily [...] test strip 04/17/2019 vitamin D, ergocalciferol, (DRISDOL) 05149 units capsule Take 50,000 Units by mouth [...] is normal. Dictated by Kristie Bee MD (physician vice president). I, Dr. CONRAD GONZALES MD have [...] is normal. Dictated by Kristie Bee MD (physician vice president). I, Dr. CONRAD GONZALES MD have personally reviewed and interpreted this examination/study. This report was electronically signed by CONRAD GONZALES MD on05/15/2020 7:49 AM . Glenny Martin MD DIAGNOSTIC IMAG ING ORDERABLES documented in this encounter Visit Diagnoses Diagnosis Pre-transplant evaluation for kidney transplant documented in this encounter Care Teams Rand Butter Relationship Specialty Start Date End Date Aditya Castro Update Information PCP - General 03/06/19 documented as of this encounter
--- OUTSIDE RECORDS SUMMARY | 2024-09-07 18:58 | XMS_ITS | Encounter Summary ---
Author Organization [facility] Address [address] [place] [address] Care Team Providers Care Communications Representative Name Role Phone Aditya Castro Primary Care Provider Unavailab le Reason for Visit * Radiology Services (Routine) - Closed Specialty Diagnoses / Procedures Referred By Aguilar t Referred To Contact Diagnoses Pre-transplant evaluation for kidney transplant Procedures ECHO STRESS TEST W DOBUTAMINE Glenny Martin MD [address] [place] [address] [facility] Kidney Transplant [address] [place] [address] Referral ID Status Reason Start Date Expiration Date Visits Re quested Visits Authorized [id number] Closed 05/14/2020 08/13/2020 1 1 Encounter Details Date Type Department Care Team (Late st Contact Info) Description 05/14/2020 7:37 AM CDT - 05/14/2020 7:54 AM T Hospital Encounter [facility] ECHO [address] [place] [phone] Glenny Martin MD [address] [facility] [place] [address] Discharge Disposition: Home or Self [...] 12 hours as needed 01/25/2019 epoetin (PROCRIT) 19143 UNIT/ML injection Inject subcutaneously every 14 days ezetimibe (ZETIA) 10 MG tablet Take 10 mg by mouth once daily febuxostat (ULORIC) 40 MG tablet Take 40 mg by mouth 02/25/2019 ferrous sulfate EC (FERROUS SULFATE) 324 (65 Fe) MG tablet Take 324 mg by mouth once daily 02/21/2019 fluticasone propionate (FLONASE) 50 MCG/ACT nasal spray [place] 1 spray into each nostril once daily [...] test strip 04/17/2019 vitamin D, ergocalciferol, (DRISDOL) 42463 units capsule Take 50,000 Units by mouth [...] discharge the patient per Dr. Gaurang Castro, Manager Event. Patient has no complaints. Denies chest pain [...] mL documented in this encounter Care Teams Communications Representative Relationship Specialty Start Date End Date Aditya Castro Update Information PCP - General 03/06/19 documented as of this encounter
--- OUTSIDE RECORDS SUMMARY | 2024-09-07 18:58 | XMS_ITS | Encounter Summary ---
Author Organization [facility] Address [address] [place] [address] Care Team Providers Care Site Controller Name Role Phone Aditya Castro Primary Care Provider Unavailab le Reason for Visit * Reason Comments Kidney Transplant Evaluation Encounter Details Date Type Department Care Team (Late st Contact Info) Description 02/17/2020 Telephone [facility] TRANSPLANT [address] [place] [address] Gracie Chambers, RN Kidney Transplant [...] echo some time in 2019 at [facility]. Will request before proceeding with referral. 03/02/20 update: Have called several times for updated echo but there does not appear to be one. Will open referral. documented in this encounter Plan of Treatment Not on file documented as of this encounter Visit Diagnoses Not on filedocumented in this encounter Care Teams Site Controller Relationship Specialty Start Date End Date Aditya Castro Update Information PCP - General 03/06/19 documented as of this encounter
--- OUTSIDE RECORDS SUMMARY | 2024-09-07 18:58 | XMS_ITS | Encounter Summary ---
Author Organization [facility] Address [address] [place] [address] Care Team Providers Care Non Clinical Advisor Name Role Phone Aditya Castro Primary Care Provider Unavailab le Encounter Details Date Type Department Care Team (Late st Contact Info) Description 05/14/2020 7:26 AM CDT Hospital Encounter [facility] DIAGNOSTIC RAD OP [address] [place] [id number] Glenny Martin MD [facility] [place] [address] Discharge Disposition: Home or Self Care Social [...] 12 hours as needed 01/25/2019 epoetin (PROCRIT) 33355 UNIT/ML injection Inject subcutaneously every 14 days ezetimibe (ZETIA) 10 MG tablet Take 10 mg by mouth once daily febuxostat (ULORIC) 40 MG tablet Take 40 mg by mouth 02/25/2019 ferrous sulfate EC (FERROUS SULFATE) 324 (65 Fe) MG tablet Take 324 mg by mouth once daily 02/21/2019 fluticasone propionate (FLONASE) 50 MCG/ACT nasal spray Matthews 1 spray into each nostril once daily [...] test strip 04/17/2019 vitamin D, ergocalciferol, (DRISDOL) 07471 units capsule Take 50,000 Units by mouth [...] identified. Dictated by Kristie Bee MD (residential director). I, Dr. CONRAD GONZALES MD have personally [...] identified. Dictated by Kristie Bee MD (residential director). I, Dr. CONRAD GONZALES MD have personally reviewed and interpreted this examination/study. This report was electronically signed by CONRAD GONZALES MD on05/15/2020 7:51 AM . Glenny Martin MD DIAGNOSTIC IMAG ING ORDERABLES documented in this encounter Visit Diagnoses Diagnosis Pre-transplant evaluation for kidney transplant documented in this encounter Care Teams Non Clinical Advisor Relationship Specialty Start Date End Date Aditya Castro Update Information PCP - General 03/06/19 documented as of this encounter
--- OUTSIDE RECORDS SUMMARY | 2024-09-07 18:58 | XMS_ITS | Encounter Summary ---
Author Organization [facility] Address [address] [facility] [place] [address] Care Team Providers Care Research And Development Engineer Name Role Phone Aditya Castro Primary Care Provider Unavailab le Reason for Referral * Laboratory Services (Routine) - Closed Specialty Diagnoses / Procedures Referred By Contac t Referred To Contact Diagnoses Pre-transplant evaluation for kidney transplant Procedures FACTOR V LEIDEN MUTATION PANEL Sourav Moscoso MD [address] [place], [place] [id number] Referral ID Status Reason Start Date Expiration Date Visits Re quested Visits Authorized [id number] Closed 03/24/2020 03/24/2021 1 1 * Laboratory Services (Routine) - Closed Specialty Diagnoses / Procedures Referred By Contac t Referred To Contact Diagnoses Pre-transplant evaluation for kidney transplant Procedures PROTHROMBIN [id number] PANEL Sourav Moscoso MD [address] [place], [place] [id number] Referral ID Status Reason Start Date Expiration Date Visits Re quested Visits Authorized [id number] Closed 03/24/2020 03/24/2021 1 1 Encounter Details Date Type Department Care Team (Late st Contact Info) Description 03/24/2020 Orders Only [facility] TRANSPLANT [address] [place] [address] Anali Merino, RN Pre-transplant evaluation for kidney [...] 150 % 05/16/2020 2:07 AM CDT [facility] ([facility]) Comment: This test was developed and its performance characteristics determined by [facility]. It has not been cleared or approved by the Food and Drug Administration. Total Protein S Antigen is an acute phase reactant protein and can be elevated in inflammatory states. Protein S Free 179(H) 57 - 157 % 05/16/2020 2:07 AM CDT [facility] Comment: This test was developed and its performance characteristics determined by [facility]. It has not been cleared or approved by the Food and Drug Administration. Blood BLOOD SPECIMEN / Unknown Lab Venipuncture / Unknown 05/14/2020 10:18 AM CDT 05/14/2020 10:48 AM CDT Narrative [facility] ([facility]) - 05/16/2020 2:07 AM CDT Performed at: ??[address] - [address] ??[id number] Dry Cleaning Manager: Con Grimaldo MD, Phone: ??[phone] Sourav Moscoso MD LAB - COAGULATION OR DERABLES [facility] ([facility]) [address] [place] [address], [facility] * ANTITHROMBIN III ACTIVITY (05/14/2020 10:18 AM CDT) Pathologist [facility] AT III Activity 125 76 - 128 % 0 9:58 PM CDT [facility] ([facility]) Comment: REFERENCE INTERVAL: Antithrombin, Enzymatic (Activity) Access complete set of age- and/or gender-specific reference intervals for this test in the [facility] ([facility]). Performed by [facility], [address] [place], [place] [id number] [email or web address], Valerie Mast MD, Lab. Director Blood BLOOD SPECIMEN / Unknown Lab Venipuncture / Unknown 05/14/2020 10:18 AM CDT 05/14/2020 10:51 AM CDT Sourav Moscoso MD LAB - COAGULATION OR DERABLES [facility]) [address] [place] [address], [facility] * CARDIOLIPIN ANTIBODY IGM (05/14/2020 10:18 AM CDT) Pathologist [facility] Cardiolipin Antibody IgM 0 0 - 12 MPL 05/17/2020 12:33 AM CDT [facility] ([facility]) Comment: INTERPRETIVE INFORMATION: Anti-Cardiolipin IgM 0-12 MPL: [...] other criteria phospholipid antibody tests. Performed By: [facility] [address] [place] [address] Milk Runner: Valerie Mast MD Blood BLOOD SPECIMEN / Unknown Lab Venipuncture / Unknown 05/14/2020 10:18 AM CDT 05/14/2020 10:57 AM CDT Sourav Moscoso MD LAB - SEROLOGY ORDER ROVERTO Performing Organization Address City/[facility] [place]/ZIP Co de Phone Number [facility]) [address] * CARDIOLIPIN ANTIBODY IGG (05/14/2020 10:18 AM CDT) Cardiolipin Antibody IgG 2 0 - 14 GPL 05/17/2020 12:32 AM CDT [facility] ([facility]) Comment: INTERPRETIVE INFORMATION: Anti-Cardiolipin IgG Ab 0-14 [...] other criteria phospholipid antibody tests. Performed By: [facility] [address] [place] [address] Milk Runner: Valerie Mast MD Blood BLOOD SPECIMEN / Unknown Lab Venipuncture / Unknown 05/14/2020 10:18 AM CDT 05/14/2020 10:58 AM CDT Sourav Moscoso MD LAB - SEROLOGY ORDER ROVERTO Performing Organization Address City/[facility] [place]/ZIP Co de Phone Number [facility] ([facility]) [address] * FACTOR V LEIDEN MUTATION PANEL (05/14/2020 10:18 AM CDT) Factor V Leiden Source Whole Blood 05/21/2020 4:02 PM [facility] ([facility]) Factor V Leiden PCR/FRET Negative 05/21/2020 4:02 PM [facility] ([facility]) Comment: Indication for testing: Assess genetic risk for thrombosis. NEGATIVE: The factor V Leiden variant, c.1601G>A; p.[id number], was not detected. This does not exclude [...] function in the F5 gene variant c.1601G>A (p.Myj641Rua). Legacy nomenclature: [id number] (1691G>A) CLINICAL SENSITIVITY: 20-50 percent of individuals with an isolated VTE have the FVL variant. METHODOLOGY: Polymerase chain reaction and fluorescence monitoring. ANALYTICAL SENSITIVITY AND SPECIFICITY: 99 percent. LIMITATIONS: Diagnostic errors can occur due to rare sequence variations. F5 gene mutations, other than p.Wco861Fav, will not be detected. This test was developed and its performance characteristics determined by [facility]. It has not been cleared or approved by the [place] Food and Drug Administration. This test was performed in a CLIA certified laboratory and is intended for clinical purposes. Counseling and informed consent are recommended for genetic testing. Consent forms are available online. Performed by [facility], [address] [id number] [email or web address], Valerie Mast MD, Lab. Director Blood BLOOD SPECIMEN / Unknown Lab Venipuncture / Unknown 05/14/2020 10:18 AM CDT 05/14/2020 10:49 AM CDT Sourav Moscoso MD LAB - COAGULATION OR DERABLES [facility] ([facility]) [address] [place] [address], [facility] * PROTHROMBIN [id number] PANEL (05/14/2020 10:18 AM CDT) [facility] Prothrombin [id number] Negative 05/21/2020 8:19 PM CDT [facility] ([facility]) Comment: Indication for testing: Assess genetic risk for thrombosis. NEGATIVE: The Factor II, prothrombin E90234P mutation, was not detected. ??Other causes of [...] Cui, Ph.D. BACKGROUND INFORMATION: Prothrombin (F2) c.*97G>A ?(E37773S) Pathogenic Variant CHARACTERISTICS: The Factor II, c.*97G>A (N00702S) pathogenic variant is a common genetic risk [...] CAUSE: Homozygosity or heterozygosity for F2 c.*97G>A (Q71219H). PATHOGENIC VARIANT TESTED: F2 c.*97G>A (K46645Q). CLINICAL SENSITIVITY FOR VENOUS THROMBOSIS: Approximately 10 percent. METHODOLOGY: Polymerase chain reaction and fluorescence monitoring. ANALYTICAL SENSITIVITY AND SPECIFICITY: 99 percent. LIMITATIONS: Diagnostic errors can occur due to rare sequence variations. F2 gene variants, other than c.*97G>A (G98020H), will not be detected. This test was developed and its performance characteristics determined by [facility]. It has not been cleared or approved by the [place] Food and Drug Administration. This test was performed in a CLIA certified laboratory and is intended for clinical purposes. Counseling and informed consent are recommended for genetic testing. Consent forms are available online. Performed by [facility], [address] [place] [address] [email or web address], Valerie Mast MD, Lab. Director Source PT [id number] PCR Whole Blood 05/21/2020 8:19 PM CDT [facility]) Blood BLOOD SPECIMEN / Unknown Lab Venipuncture / Unknown 05/14/2020 10:18 AM CDT 05/14/2020 10:48 AM CDT Sourav Moscoso MD LAB - COAGULATION OR DERABLES [facility]) [address] [place] [address] * (ABNORMAL) HOMOCYSTEINE BLOOD QUANTITATIVE (05/14/2020 10:18 AM CDT) [facility] Homocysteine 21.1(H) 4.4 - 16.2 umol/L 05/14/2020 11:51 AM CDT [facility] Blood BLOOD SPECIMEN / Unknown Lab Venipuncture / Unknown 05/14/2020 10:18 AM CDT 05/14/2020 10:48 AM CDT Sourav Moscoso MD LAB - CHEMISTRY SUSANNAH LEONE Performing Organization Address City/State/[facility] Co de Phone Number [address] [address], [facility] [phone] documented in this encounter Visit Diagnoses Diagnosis Pre-transplant evaluation for kidney transplant- Primary documented in this encounter Care Teams Research And Development Engineer Relationship Specialty Start Date End Date Aditya Castro Update Information PCP - General 03/06/19 documented as of this encounter
--- OUTSIDE RECORDS SUMMARY | 2024-09-07 18:58 | XMS_ITS | Encounter Summary ---
Author Organization [facility] Address [address] [facility] [place] [address] Care Team Providers Care Necktie Stitcher Name Role Phone Aditya Castro Primary Care Provider Unavailab le Reason for Referral * Laboratory Services (Routine) - Closed Specialty Diagnoses / Procedures Referred By Contac t Referred To Contact Diagnoses Pre-transplant evaluation for kidney transplant Procedures FACTOR V LEIDEN MUTATION PANEL Sourav Moscoso MD [address] [place] [address] Referral ID Status Reason Start Date Expiration Date Visits Re quested Visits Authorized [id number] Closed 03/24/2020 03/24/2021 1 1 * Laboratory Services (Routine) - Closed Specialty Diagnoses / Procedures Referred By Contac t Referred To Contact Diagnoses Pre-transplant evaluation for kidney transplant Procedures PROTHROMBIN [id number] PANEL Sourav Moscoso MD [address] [place] [address] Referral ID Status Reason Start Date Expiration Date Visits Re quested Visits Authorized [id number] Closed 03/24/2020 03/24/2021 1 1 Reason for Visit * Laboratory Services (Routine) - Closed Specialty Diagnoses / Procedures Referred By Contac t Referred To Contact Diagnoses Pre-transplant evaluation for kidney transplant Procedures PROTHROMBIN [id number] PANEL Sourav Moscoso MD [address] [employer] [address] [place] [address] Referral ID Status Reason Start Date Expiration Date Visits Re quested Visits Authorized [id number] Closed 03/24/2020 03/24/2021 1 1 Encounter Details Date Type Department Care Team (Late st Contact Info) Description 05/14/2020 10:00 AM CDT - 05/14/2020 10:24 AM CDT Hospital Encounter [facility] [address] [place] [address] [facility] [place] [address] Discharge Disposition: Home or Self Care Social [...] 12 hours as needed 01/25/2019 epoetin (PROCRIT) 97151 UNIT/ML injection Inject subcutaneously every 14 days ezetimibe (ZETIA) 10 MG tablet Take 10 mg by mouth once daily febuxostat (ULORIC) 40 MG tablet Take 40 mg by mouth 02/25/2019 ferrous sulfate EC (FERROUS SULFATE) 324 (65 Fe) MG tablet Take 324 mg by mouth once daily 02/21/2019 fluticasone propionate (FLONASE) 50 MCG/ACT nasal spray [place] 1 spray into each nostril once daily [...] test strip 04/17/2019 vitamin D, ergocalciferol, (DRISDOL) 29639 units capsule Take 50,000 Units by mouth [...] CDT Pre-transplant evaluation for kidney transplant PROTHROMBIN [id number] PANEL Routine 05/14/2020 10:18 AM CDT Pre-transplant [...] PROTEIN S ANTIGEN (05/14/2020 10:18 AM CDT) [facility] Protein S Antigen Total 177(H) 60 - 150 % 05/16/2020 2:07 AM CDT [facility] ([facility]) Comment: This test was developed and its performance characteristics determined by [facility]. It has not been cleared or approved by the Food and Drug Administration. Total Protein S Antigen is an acute phase reactant protein and can be elevated in inflammatory states. Protein S Free 179(H) 57 - 157 % 05/16/2020 2:07 AM CDT [facility] ([facility]) Comment: This test was developed and its performance characteristics determined by [facility]. It has not been cleared or approved by the Food and Drug Administration. Blood BLOOD SPECIMEN / Unknown Lab Venipuncture / Unknown 05/14/2020 10:18 AM CDT 05/14/2020 10:48 AM CDT [facility] ([facility]) - 05/16/2020 2:07 AM CDT Performed at: ??01 - [facility] [address] ??[id number] Automatic Stacker: Con Grimaldo MD, Phone: ??[phone] Sourav Moscoso MD LAB - COAGULATION OR DERABLES [facility] ([facility]) [address] [place] [address], [facility] * ANTITHROMBIN III ACTIVITY (05/14/2020 10:18 AM CDT) Pathologist [facility] AT III Activity 125 76 - 128 % 0 9:58 PM CDT [facility] ([facility]) Comment: REFERENCE INTERVAL: Antithrombin, Enzymatic (Activity) Access complete set of age- and/or gender-specific reference intervals for this test in the [facility] ([facility] [employer]). Performed by [facility], [address] [place] [address] www.[email or web address], Valerie Mast MD, Lab. Director Blood BLOOD SPECIMEN / Unknown Lab Venipuncture / Unknown 05/14/2020 10:18 AM CDT 05/14/2020 10:51 AM CDT Sourav Moscoso MD LAB - COAGULATION OR DERABLES Performing Organization Address [facility]/ZIP Co de Phone Number [employer] [facility]) [address] [place] [address] * CARDIOLIPIN ANTIBODY IGM (05/14/2020 10:18 AM CDT) [facility] Cardiolipin Antibody IgM 0 0 - 12 MPL 05/17/2020 12:33 AM CDT [facility] ([facility]) Comment: INTERPRETIVE INFORMATION: Anti-Cardiolipin IgM 0-12 MPL: [...] other criteria phospholipid antibody tests. Performed By: [facility] [address] [place] [address] Cdl Service Technician: Valerie Mast MD Blood BLOOD SPECIMEN / Unknown Lab Venipuncture / Unknown 05/14/2020 10:18 AM CDT 05/14/2020 10:57 AM CDT Sourav Moscoso MD LAB - SEROLOGY ORDER ROVERTO [employer] ([facility]) [address] [place] [address] * CARDIOLIPIN ANTIBODY IGG (05/14/2020 10:18 AM CDT) Cardiolipin Antibody IgG 2 0 - 14 GPL 05/17/2020 12:32 AM CDT [email or web address] ([facility]) Comment: INTERPRETIVE INFORMATION: Anti-Cardiolipin IgG Ab 0-14 [...] other criteria phospholipid antibody tests. Performed By: [facility] [address] [place] [address] Cdl Service Technician: Valerie Mast MD Blood BLOOD SPECIMEN / Unknown Lab Venipuncture / Unknown 05/14/2020 10:18 AM CDT 05/14/2020 10:58 AM CDT Sourav Moscoso MD LAB - SEROLOGY ORDER ROVERTO [employer] ([facility]) [address] [place] [address], [facility] * FACTOR V LEIDEN MUTATION PANEL (05/14/2020 10:18 AM CDT) [facility] Factor V Leiden Source Whole Blood 05/21/2020 4:02 PM CDT [facility] ([facility]) Factor V Leiden PCR/FRET Negative 05/21/2020 4:02 PM CDT [employer] ([facility]) Comment: Indication for testing: Assess genetic risk for thrombosis. NEGATIVE: The factor V Leiden variant, c.1601G>A; p.Zjo688Naw, was not detected. This does not exclude [...] function in the F5 gene variant c.1601G>A (p.Qsk457Gvm). Legacy nomenclature: R506Q (1691G>A) CLINICAL SENSITIVITY: 20-50 percent of individuals with an isolated VTE have the FVL variant. METHODOLOGY: Polymerase chain reaction and fluorescence monitoring. ANALYTICAL SENSITIVITY AND SPECIFICITY: 99 percent. LIMITATIONS: Diagnostic errors can occur due to rare sequence variations. F5 gene mutations, other than p.[id number], will not be detected. This test was developed and its performance characteristics determined by [facility]. It has not been cleared or approved by the [place] Food and Drug Administration. This test was performed in a CLIA certified laboratory and is intended for clinical purposes. Counseling and informed consent are recommended for genetic testing. Consent forms are available online. Performed by [facility], [address] [place] [address] www.[email or web address], Valerie Mast MD, Lab. Director Blood BLOOD SPECIMEN / Unknown Lab Venipuncture / Unknown 05/14/2020 10:18 AM CDT 05/14/2020 10:49 AM CDT Sourav Moscoso MD LAB - COAGULATION OR DERABLES [employer] ([facility]) [address] [place] [address], [facility] * PROTHROMBIN [id number] PANEL (05/14/2020 10:18 AM CDT) [facility] Prothrombin D42897A Negative 05/21/2020 8:19 PM CDT [facility] [email or web address] ([facility]) Comment: Indication for testing: Assess genetic risk for thrombosis. NEGATIVE: The Factor II, prothrombin E57706E mutation, was not detected. ??Other causes of [...] Cui, Ph.D. BACKGROUND INFORMATION: Prothrombin (F2) c.*97G>A ?(E35819Q) Pathogenic Variant CHARACTERISTICS: The Factor II, c.*97G>A (D44923H) pathogenic variant is a common genetic risk [...] CAUSE: Homozygosity or heterozygosity for F2 c.*97G>A (K92811V). PATHOGENIC VARIANT TESTED: F2 c.*97G>A (C24044G). CLINICAL SENSITIVITY FOR VENOUS THROMBOSIS: Approximately 10 percent. METHODOLOGY: Polymerase chain reaction and fluorescence monitoring. ANALYTICAL SENSITIVITY AND SPECIFICITY: 99 percent. LIMITATIONS: Diagnostic errors can occur due to rare sequence variations. F2 gene variants, other than c.*97G>A (F43483Y), will not be detected. This test was developed and its performance characteristics determined by [facility]. It has not been cleared or approved by the [place] Food and Drug Administration. This test was performed in a CLIA certified laboratory and is intended for clinical purposes. Counseling and informed consent are recommended for genetic testing. Consent forms are available online. Performed by [facility], [address] [place] [address],[place] [address] www.[employer], Valerie Mast MD, Lab. Director Source PT [id number] PCR Whole Blood 05/21/2020 8:19 PM CDT [facility] ([facility]) Blood BLOOD SPECIMEN / Unknown Lab Venipuncture / Unknown 05/14/2020 10:18 AM CDT 05/14/2020 10:48 AM CDT Sourav Moscoso MD LAB - COAGULATION OR DERABLES Performing Organization Address City/[facility]/ZIP Co de Phone Number [facility]) [address] * (ABNORMAL) HOMOCYSTEINE BLOOD QUANTITATIVE (05/14/2020 10:18 AM CDT) Homocysteine 21.1(H) 4.4 - 16.2 umol/L 05/14/2020 11:51 AM CDT [facility] Blood BLOOD SPECIMEN / Unknown Lab Venipuncture / Unknown 05/14/2020 10:18 AM CDT 05/14/2020 10:48 AM CDT Sourav Moscoso MD LAB - CHEMISTRY ORDE RABLES [place] [id number] [place] [id number] [place] [address] * HLA ANTIBODY SCREEN LUM CLASS 1 ID (05/14/2020 10:18 AM CDT) % PRA 4 05/29/2020 7:59 AM CDT [facility] ([facility]) Class 1 LUM Specificity - 05/29/2020 7:59 AM CDT [facility] ([facility]) Class 1 LUM Test Date 0 05/29/2020 7:59 AM CDT [facility] ([facility]) Comment: This test was developed and its performance characteristics determined by the [facility]. ??It has not been cleared [...] high complexity clinical laboratory testing. ??CLIA ID# [id number] Performed at: ??[facility], [address] @ [place], [place] ??[phone] Automatic Stacker: Jarrod Chin MD, Blood BLOOD SPECIMEN / Unknown Lab Venipuncture / Unknown 05/14/2020 10:18 AM CDT 05/14/2020 10:52 AM CDT Glenny Martin MD LAB - BLOOD BAN K ORDERABLES [facility] ([facility]) [address] [place] [address], [place] * HLA ANTIBODY SCREEN LUM CLASS 2 ID (05/14/2020 10:18 AM CDT) % PRA 90 05/29/2020 7:59 AM CDT [facility] ([facility]) Class 2 LUM Specificity - 05/29/2020 7:59 AM CDT [facility] ([facility]) Class 2 LUM Test Date 0 05/29/2020 7:59 AM CDT [facility] ([facility]) Comment: This test was developed and its performance characteristics determined by the [facility]. ??It has not been cleared [...] high complexity clinical laboratory testing. ??CLIA ID# [id number] Performed at: ??[facility], [address] @ [place], [place] ??[phone] Automatic Stacker: Jarrod Chin MD, Blood BLOOD SPECIMEN / Unknown Lab Venipuncture / Unknown 05/14/2020 10:18 AM CDT 05/14/2020 10:52 AM CDT Glenny Martin MD LAB - BLOOD BAN K ORDERABLES Performing Organization Address City/[facility]/ZIP Co de Phone Number [facility] ([facility] [address] [place] [address], [facility] * HIV-1 HIV-2 ANTIGEN/ANTIBODY (05/14/2020 10:18 AM CDT) HIV Antigen/Antibod y 1 & 2 Non-reacti ve Non-react bianca 05/14/2020 11:49 AM CDT [facility] Comment:Neither HIV-1 p24 An tigen nor HIV-1/HIV-2 Antibodies are detected. Blood BLOOD SPECIMEN / Unknown Lab Venipuncture / Unknown 05/14/2020 10:18 AM CDT 05/14/2020 10:57 AM CDT Glenny Martin MD LAB - HEMATOLOG Y ORDERABLES Performing Organization Address [facility]/[employer] Co de Phone Number [facility] [address] [address], [facility] [phone] * (ABNORMAL) HEPATITIS A ANTIBODY (05/14/2020 10:18 AM CDT) [facility] Hepatitis A Virus Antibody Total Positive( A) Negative 05/16/2020 11:02 AM CDT [facility] ([facility]) Comment: The positive anti-HAV is consistent with recent or remote Hepatitis A infection or antibody response to HAV vaccination. False positive anti-HAV can occur. Performed by [facility], [address] [place], [place] [id number] www.[employer], Valerie Mast MD, Lab. Director Blood BLOOD SPECIMEN / Unknown Lab Venipuncture / Unknown 05/14/2020 10:18 AM CDT 05/14/2020 10:57 AM CDT lGenny Martin MD LAB - CHEMISTRY ORDERABLES Performing Organization Address [facility]/[employer] Co de Phone Number [facility] ([facility]) [address] [place] [address] * (ABNORMAL) PTH INTACT ([facility]) (05/14/2020 10:18 AM CDT) Pathologist [facility] PTH Intact 653.3(H) 8.0 - 77.0 pg/mL 05/14/2020 11:34 AM CDT [facility] Blood BLOOD SPECIMEN / Unknown Lab Venipuncture / Unknown 05/14/2020 10:18 AM CDT 05/14/2020 10:55 AM CDT Glenny Martin MD LAB - CHEMISTRY ORDERABLES [facility] [address] [place] [address], [facility] [phone] * TOXOPLASMA GONDII ANTIBODY IGG (05/14/2020 10:18 AM CDT) [facility] Toxoplasma Antibody IgG <3.0 IU/mL 05/16/2020 6:32 PM CDT [facility] ([facility]) Comment: INTERPRETIVE INFORMATION: Toxoplasma Ab, IgG ??7.1 [...] the amount of antibody present. Performed By: [facility] [address] [place] [id number] Cdl Service Technician: Valerie Msat MD Blood BLOOD SPECIMEN / Unknown Lab Venipuncture / Unknown 05/14/2020 10:18 AM CDT 05/14/2020 10:58 AM CDT Glenny Martin MD LAB - CHEMISTRY ORDERABLES [facility]) [address] [place] [address], [facility] * STRONGYLOIDES ANTIBODY IGG (05/14/2020 10:18 AM CDT) Strongyloides Antibody IgG 0.2 <=0.9 IV 05/17/2020 10:58 PM CDT [facility] ([facility]) Comment: INTERPRETIVE INFORMATION: Strongyloides Ab, IgG by [...] also result in false-positive results. Performed By: [facility] [address] [place] [address] Cdl Service Technician: Valerie Mast MD Blood BLOOD SPECIMEN / Unknown Lab Venipuncture / Unknown 05/14/2020 10:18 AM CDT 05/14/2020 10:55 AM CDT Glenny Martin MD LAB - SEROLOGY ORDERABLES [facility]) [address] [place] [address], [facility] * PROSTATE SPECIFIC ANTIGEN SCREEN (05/14/2020 10:18 AM CDT) PSA Total 0.4 0.0 - 4.0 ng/mL 05/14/2020 11:59 AM CDT [facility] Blood BLOOD SPECIMEN / Unknown Lab Venipuncture / Unknown 05/14/2020 10:18 AM CDT 05/14/2020 10:55 AM CDT Glenny Martin MD LAB - CHEMISTRY ORDERABLES Performing Organization Address City/[facility]/ZIP Co de Phone Number [address] [address], [facility] [phone] * CANNABINOID SCREEN BLOOD (05/14/2020 10:18 AM CDT) Marijuana Metabolites Negative 05/17/2020 12:06 AM CDT [facility] ([facility]) Comment:REFERENCE RANGE: thr shold: 5 ng/mL Specimen Type Comment 05/17/2020 12:06 AM CDT [facility] ([facility]) Comment: WHOLE BLOOD This specimen was screened [...] CDT 05/14/2020 10:53 AM CDT Narrative [facility] ([facility]) - 05/17/2020 12:06 AM CDT Performed at: ??01 - [employer] [address] [place] [address] ??[id number] Automatic Stacker: Radha Callahan [facility], Phone: ??[phone] Glenny Martin MD LAB - CHEMISTRY ORDERABLES [facility] ([facility]) [address] [place] [id number] * IRON BLOOD (05/14/2020 10:18 AM CDT) Iron 84 50 - 175 mcg/dL 05/14/2020 11:41 AM CDT [facility] Blood BLOOD SPECIMEN / Unknown Lab Venipuncture / Unknown 05/14/2020 10:18 AM CDT 05/14/2020 10:57 AM CDT Glenny Martin MD LAB - CHEMISTRY ORDERABLES Performing Organization Address City/[facility]/ZIP Co de Phone Number [address] [address], [place] [phone] * (ABNORMAL) FERRITIN (05/14/2020 10:18 AM CDT) Ferritin 502(H) 22 - 275 ng/mL 05/14/2020 11:47 AM CDT [facility] Blood BLOOD SPECIMEN / Unknown Lab Venipuncture / Unknown 05/14/2020 10:18 AM CDT 05/14/2020 10:55 AM CDT Glenny Martin MD LAB - CHEMISTRY ORDERABLES [address] [address], [place] [phone] * TRANSFERRIN (05/14/2020 10:18 AM CDT) Transferrin 245 174 - 382 mg/dL 05/14/2020 11:41 AM CDT [facility] Transferrin Saturation % 27 16 - 50 % 05/14/2020 11:41 AM CDT [facility] Blood BLOOD SPECIMEN / Unknown Lab Venipuncture / Unknown 05/14/2020 10:18 AM CDT 05/14/2020 10:57 AM CDT Glenny Martin MD LAB - CHEMISTRY ORDERABLES Performing Organization Address [facility]/ZIP Co de Phone Number [facility] [address] [place] [address], [facility] [phone] * (ABNORMAL) VITAMIN D 25-HYDROXY (05/14/2020 10:18 [...] LAB - CHEMISTRY ORDERABLES Performing Organization Address [facility]/RUST Co de Phone Number [facility] [address] [place] [address], [place] [phone] * (ABNORMAL) URIC ACID BLOOD (05/14/2020 10:18 AM CDT) Pathologist [facility] Uric Acid 8.4(H) 2.6 - 7.2 mg/dL 05/14/2020 11:41 AM CDT [facility] Blood BLOOD SPECIMEN / Unknown Lab Venipuncture / Unknown 05/14/2020 10:18 AM CDT 05/14/2020 10:55 AM CDT Glenny Martin MD LAB - CHEMISTRY ORDERABLES [facility] [address] [place] [address], [facility] [phone] * HLA TYPING DNA LOW RESOLUTION DR,DQ (05/14/2020 10:18 AM CDT) [facility] DR DQ Low Resolution DRB1-1 04 05/29/2020 7:59 AM CDT [facility] ([facility]) DR DQ Low Resolution DRB1-2 11 05/29/2020 7:59 AM CDT [facility] ([facility]) DR DQ Low Resolution DQB1-1 03 (DQ7) 05/29/2020 7:59 AM CDT [facility] ([facility]) DR DQ Low Resolution DQB1-2 03 (DQ8) 05/29/2020 7:59 AM CDT [facility] ([facility]) DR DQ Low Resolution DRB3-1 02 05/29/2020 7:59 AM CDT [facility] ([facility]) DR DQ Low Resolution DRB3-2 Negative 05/29/2020 7:59 AM CDT [facility] ([facility]) DR DQ Low Resolution DRB4-1 01 05/29/2020 7:59 AM CDT [facility] ([facility]) DR DQ Low Resolution DRB4-2 Negative 05/29/2020 7:59 AM CDT [facility] ([facility]) DR DQ Low Resolution DRB5-1 Negative 05/29/2020 7:59 AM CDT [facility] ([facility]) DR DQ Low Resolution DRB5-2 Negative 05/29/2020 7:59 AM CDT [facility] ([facility]) DR DQ Low Resolution Methodology SSOP 05/29/2020 7:59 AM CDT [facility] ([facility]) Comment DR DQ Low Resolution - 05/29/2020 7:59 AM CDT [facility] ([facility]) DR DQ Low Resolution test date 05/28/2020 05/29/2020 7:59 AM CDT [facility] ([facility]) Comment: This test was developed and its performance characteristics determined by the [facility]. ??It has not been cleared [...] high complexity clinical laboratory testing. ??CLIA ID# [id number] Performed at: ??[facility], [address] @ [place], [place] ??[phone] Automatic Stacker: Jarrod Chin MD, Blood BLOOD SPECIMEN / Unknown Lab Venipuncture / Unknown 05/14/2020 10:18 AM CDT 05/14/2020 10:52 AM CDT Glenny Martin MD LAB - BLOOD BAN K ORDERABLES [facility] ([facility]) [address] [place] [address], [facility] * HLA TYPING DNA LOW RESOLUTION A,B,C (05/14/2020 10:18 AM CDT) ABC DNA A1 03 05/29/2020 7:59 AM CDT [facility] ([facility]) ABC DNA A2 29 05/29/2020 7:59 AM CDT [facility] ([facility]) ABC DNA B1 07 05/29/2020 7:59 AM CDT [facility] ([facility]) ABC DNA B2 44 05/29/2020 7:59 AM CDT [facility] ([facility]) ABC DNA BW1 6 05/29/2020 7:59 AM CDT [facility] ([facility]) ABC DNA BW2 4 05/29/2020 7:59 AM CDT [facility] ([facility]) ABC DNA C1 07 05/29/2020 7:59 AM CDT [facility] ([facility]) ABC DNA C2 - 05/29/2020 7:59 AM CDT [facility] ([facility]) ABC DNA Methodology SSOP 05/29 7:59 AM CDT [facility] ([facility]) Comment ABC DNA - 0 7:59 AM CDT [facility] ([facility]) ABC DNA Test Date 0 05/29/2020 7:59 AM CDT [facility] ([facility]) Comment: This test was developed and its performance characteristics determined by the [facility]. ??It has not been cleared [...] high complexity clinical laboratory testing. ??CLIA ID# [id number] Performed at: ??[facility], [address] @ [place], [place] ??[phone] Automatic Stacker: Jarrod Chin MD, Blood BLOOD SPECIMEN / Unknown Lab Venipuncture / Unknown 05/14/2020 10:18 AM CDT 05/14/2020 10:52 AM CDT Glenny Martin MD LAB - BLOOD BAN K ORDERABLES [facility] ([facility]) [address] [place] [address], [facility] * VARICELLA ZOSTER ANTIBODY IGG (05/14/2020 10:18 AM CDT) [facility] Varicella zoster Virus Antibody IgG 3705.0 IV 05/16/2020 2:46 PM CDT [facility] ([facility]) Comment: INTERPRETIVE INFORMATION: VZV Ab, IgG 134.9 [...] laboratory at the same time. Performed By: [facility] [address] [place] [address] Cdl Service Technician: Valerie Mast MD Blood BLOOD SPECIMEN / Unknown Lab Venipuncture / Unknown 05/14/2020 10:18 AM CDT 05/14/2020 10:57 AM CDT Glenny Martin MD LAB - CHEMISTRY ORDERABLES Performing Organization Address [facility]/State/[place] Co de Phone Number [facility]) [address] [place] [address], [facility] * MUMPS ANTIBODY IGG (05/14/2020 10:18 AM CDT) Mumps Virus Antibody IgG 17.2 AU/mL 05/16/2020 6:30 PM CDT [facility] ([facility]) Comment: INTERPRETIVE INFORMATION: Mumps Ab, IgG by [...] laboratory at the same time. Performed By: [facility] [address] [place] [address] Cdl Service Technician: Valerie Mast MD Blood BLOOD SPECIMEN / Unknown Lab Venipuncture / Unknown 05/14/2020 10:18 AM CDT 05/14/2020 10:57 AM CDT Glenny Martin MD LAB - CHEMISTRY ORDERABLES [employer] [facility]) [address] [place] [address], [facility] * RUBEOLA ANTIBODY IGG (05/14/2020 10:18 AM CDT) Measles ([facility]) Antibody IgG >300.0 AU/mL 05/16/2020 2:46 PM CDT [facility] [email or web address] ([facility]) Comment: INTERPRETIVE INFORMATION: Measles (Rubeola) Antibody, IgG [...] laboratory at the same time. Performed By: [facility] [address] [place] [address] Cdl Service Technician: Valerie Mast MD Blood BLOOD SPECIMEN / Unknown Lab Venipuncture / Unknown 05/14/2020 10:18 AM CDT 05/14/2020 10:57 AM CDT Glenny Martin MD LAB - CHEMISTRY ORDERABLES Performing Organization Address [facility]/State/[place]UST Co de Phone Number [facility] [email or web address] ([facility]) [address] [place] [address], [facility] * OPIATES BLOOD (05/14/2020 10:18 AM CDT) [facility] Opiates Screen Negative 05/17/2020 12:06 AM CDT [facility] ([facility]) Comment:REFERENCE RANGE: thr shold: 10 ng/mL Oxycodone Screen Negative 05/17/20 12:06 AM CDT [facility] ([facility]) Comment:REFERENCE RANGE: thr shold: 10 ng/mL Specimen Type Comment 05/17/2020 12:06 AM CDT [facility] ([facility]) Comment: WHOLE BLOOD This specimen was screened by immunoassay at the thresholds listed above. Presumptive positive results have not been confirmed by an alternate method; results are intended for clinical medical purposes. Please contact the laboratory if confirmatory testing is desired. This test was developed and its performance characteristics determined by [employer]. It has not been cleared or approved by the Food and Drug Administration. Blood BLOOD SPECIMEN / Unknown Lab Venipuncture / Unknown 05/14/2020 10:18 AM CDT 05/14/2020 10:53 AM CDT Narrative [facility] ([facility]) - 05/17/2020 12:06 AM CDT Performed at: ??01 - [employer] [address] ??[id number] Automatic St[employer]: Radha Callahan [facility], Phone: ??[phone] Glenny Martin MD LAB - CHEMISTRY ORDERABLES [facility] ([facility]) [address] [phone] * COCAINE METABOLITE QUANT (05/14/2020 10:18 AM CDT) [facility] Cocaine and Metabolite Blood <20 ng/mL 05/17/2020 11:07 PM CDT [facility] ([facility]) Comment: INTERPRETIVE INFORMATION: Cocaine Metabolite, ?Serum or Plasma, ?Quantitative Methodology: Quantitative Gas Chromatography- Mass Spectrometry Positive cutoff: 20 ng/mL ?? For medical purposes only; not valid for forensic use. The concentration value must be greater than or equal to the cutoff to be reported as positive. Interpretive questions should be directed to the laboratory. Test developed and characteristics determined by [facility]. See Compliance Statement B: [employer] Performed By: [facility] [address] [place] [address] Cdl Service Technician: Valerie Mast MD Blood BLOOD SPECIMEN / Unknown Lab Venipuncture / Unknown 05/14/2020 10:18 AM CDT 05/14/2020 10:55 AM CDT Glenny Martin MD LAB - CHEMISTRY ORDERABLES Performing Organization Address [facility]/ZIP Co de Phone Number [employer] ([facility]) [address] * AMPHETAMINE BLOOD CONFIRMATION (05/14/2020 10:18 AM CDT) Amphetamines Confirmation <20 ng/mL 05/20/2020 12:29 PM CDT [facility] [email or web address] ([facility]) Comment: INTERPRETIVE INFORMATION: Amphetamines, Serum or ?Plasma, [...] laboratory. Test developed and characteristics determined by [facility]. See Compliance Statement B: [employer] Methamphetamine Confirmation <20 ng/mL 05/20/2020 12:29 PM CDT [facility] ([facility]) MDA Confirmation <20 ng/mL 05/20/20 20 12:29 PM CDT [facility] [email or web address] [facility]) MDMA Confirm <20 ng/mL 05/20/2020 12:29 PM CDT [facility]) MDEA Confirmation <20 ng/mL 020 12:29 PM CDT [facility] [email or web address] [facility]) Comment: Performed By: [facility] [address] [place] [address] Cdl Service Technician: Valerie Mast MD Blood BLOOD SPECIMEN / Unknown Lab Venipuncture / Unknown 05/14/2020 10:18 AM CDT 05/14/2020 10:57 AM CDT Glenny Martin MD LAB - CHEMISTRY ORDERABLES Performing Organization Address [facility]/ZIP Co de Phone Number [employer] ([facility]) [address] * NICOTINE + METABOLITES BLOOD (05/14/2020 10:18 AM CDT) Nicotine <2 ng/mL 05/18/2020 10:08 PM CDT [facility] ([facility]) Comment: Consistent with abstinence from nicotine-containing products [...] ?? Test developed and characteristics determined by [facility]. See Compliance Statement B: [employer]CS Performed By: [facility] [address] [place] [address] Cdl Service Technician: Valerie Mast MD 3-Hydroxy Cotinine <2 ng/mL 2019 10:08 PM CDT [employer] [facility]) Cotinine <2 ng/mL 05/18/2020 10:08 PM CDT [facility] [email or web address] [facility]) Blood BLOOD SPECIMEN / Unknown Lab Venipuncture / Unknown 05/14/2020 10:18 AM CDT 05/14/2020 10:57 AM CDT Glenny Martin MD LAB - CHEMISTRY ORDERABLES [employer] ([facility]) [address] [place] [address], [facility] * ALCOHOL ETHYL BLOOD (05/14/2020 10:18 AM CDT) [facility] Interpretation Ethanol None Detected None Detected mg/dL 05/14/2020 11:41 AM CDT [facility] Comment:Ethanol levels less than 10 mg/dL are resulted as None detected . Blood BLOOD SPECIMEN / Unknown Lab Venipuncture / Unknown 05/14/2020 10:18 AM CDT 05/14/2020 10:55 AM CDT Glenny Martin MD LAB - CHEMISTRY ORDERABLES Performing Organization Address [facility]/[place] Co de Phone Number [address] [address], [facility] [phone] * SYPHILIS ANTIBODY CASCADING REFLEX (05/14/2020 10:18 AM CDT) [facility] Treponema pallidum Antibody Non-react bianca Non-react bianca [...] LAB - SEROLOGY ORDERABLES Performing Organization Address [facility]/[place] Co de Phone Number [address] [address], [facility] [phone] * (ABNORMAL) HEMOGLOBIN A1C (05/14/2020 10:18 AM CDT) [facility] Hemoglobin A1c 7.7(H) 4.4 - 6.3 % 05/14/2020 3:37 PM CDT [facility] Estimated Average Glucose 174 mg/dL 05/14/2020 3:37 PM CDT [facility] Comment: HbA1c Interpretation: Treatment target values recommended by ADA and other clinical organizations should be used to evaluate metabolic control in patients. Treatment Target Values: Normal : < 5.7% Pre-diabetes: 5.7-6.4% Diabetes: Equal to or greater than 6.5% Reference: [place] [employer] Standards of Care in Diabetes -2014 In patients 70 years and older consider HbA1c target range of 7.0-7.5% Reference: ??Diabetes Mellitus in Older People: Position Statement on behalf of the International Association of Gerontology and Geriatrics (IAGG), the Diabetes Working Libertarian for Older People (EDWPOP), and the International Task Force of Experts in Diabetes. ??Hermelindo Remy, et al. J [place] [employer] Association. 2012 Test results diagnostic of diabetes should be repeated for confirmation. The Sebia Capillary 2 assay for the measurement of HbA1c is a National Glycohemoglobin Standardization Program (NGSP)certified method. Blood BLOOD SPECIMEN / Unknown Lab Venipuncture / Unknown 05/14/2020 10:18 AM CDT 05/14/2020 10:55 AM CDT Glenny Martin MD LAB - CHEMISTRY ORDERABLES Performing Organization Address [facility] de Phone Number [facility] [address] [address], [facility] [phone] * (ABNORMAL) MADIHA-CA VIRUS ANTIBODY TO VCA IGG (05/14/2020 10:18 AM CDT) Madiha-Ca Virus Antibody IgG Viral Capsid Antigen 115.0(H) 0.0 - 21.9 U/mL 05/16/2020 5:10 PM CDT [facility] ([facility]) Comment: INTERPRETIVE INFORMATION: Madiha-Ca Virus Antibody to ?Viral Capsid Antigen, IgG ??17.9 U/mL or less.......Not Detected ??18.0-21.9 U/mL..........Indeterminate - Repeat testing in ?10-14 days may be helpful. ??22.0 U/mL or greater....Detected Performed By: [facility] [address] [place] [address] Cdl Service Technician: Valerie Mast MD Blood BLOOD SPECIMEN / Unknown Lab Venipuncture / Unknown 05/14/2020 10:18 AM CDT 05/14/2020 10:55 AM CDT Glenny Martin MD LAB - CHEMISTRY ORDERABLES [employer] [facility]) [address] * CYTOMEGALOVIRUS ANTIBODY IGG BLOOD (05/14/2020 10:18 AM CDT) [facility] Cytomegalovirus Antibody IgG >10.00 U/mL 05/16/2020 6:28 PM CDT [employer] ([facility]) Comment: INTERPRETIVE INFORMATION: Cytomegalovirus Antibody, IgG ??0.59 [...] laboratory at the same time. Performed By: [facility] [address] [place] [address] Cdl Service Technician: Valerie Mast MD Blood BLOOD SPECIMEN / Unknown Lab Venipuncture / Unknown 05/14/2020 10:18 AM CDT 05/14/2020 10:55 AM CDT Glenny Martin MD LAB - CHEMISTRY ORDERABLES [facility] ([facility]) [address] * HEPATITIS C ANTIBODY (05/14/2020 10:18 AM CDT) Hepatitis C Antibody Non-react bianca Non-reac tive 05/14/2020 11:49 AM CDT [facility] Comment:Hepatitis C Antibody screen indicates no [...] LAB - CHEMISTRY ORDERABLES Performing Organization Address [facility]/ZIP Co de Phone Number [facility] [address] [place] [address], [facility] [phone] * (ABNORMAL) HEPATITIS B SURFACE ANTIBODY (05/14/2020 10:18 AM CDT) Pathologist [facility] Hepatitis B Virus Surface Antibody Reactive( A) Non-react bianca 05/14/2020 11:47 AM CDT [facility] Comment: > 12 mIU/mL Hepatitis B surface Antibody (HBsAb). Reactive for HBsAb - individual is considered immune to Hepatitis B Virus infection. Hepatitis B Surface Antibody Quantitative 72.7(H) <8.0 mIU/mL 05/14/2020 11:47 AM CDT [facility] Comment: Hepatitis B Surface Antibody Numeric Result Interpretation: ? Nonreactive: ?<8.0 mIU/mL ? Indeterminate: ??8.0 - 12.0 mIU/mL ? Reactive: ?>12.0 mIU/mL ? Blood BLOOD SPECIMEN / Unknown Lab Venipuncture / Unknown 05/14/2020 10:18 AM CDT 05/14/2020 10:55 AM CDT Glenny Martin MD LAB - CHEMISTRY ORDERABLES [address] [address], [place] [phone] * HEPATITIS B CORE ANTIBODY (05/14/2020 10:18 AM CDT) HBc Antibody Total Non-reacti ve Non-reacti ve 05/14/2020 11:47 AM CDT [facility] Blood BLOOD SPECIMEN / Unknown Lab Venipuncture / Unknown 05/14/2020 10:18 AM CDT 05/14/2020 10:55 AM CDT Glenny Martin MD LAB - CHEMISTRY ORDERABLES Performing Organization Address City/[facility]/ZIP Co de Phone Number [address] [address], [place] [phone] * HEPATITIS B SURFACE ANTIGEN W RFLX CONFIRMATION (05/14/2020 10:18 AM CDT) Hepatitis B Virus Surface Antigen Non-reacti ve Non-reacti ve 05/14/2020 11:47 AM CDT [facility] Blood BLOOD SPECIMEN / Unknown Lab Venipuncture / Unknown 05/14/2020 10:18 AM CDT 05/14/2020 10:55 AM CDT Glenny Martin MD LAB - CHEMISTRY ORDERABLES [address] [address], [place] [phone] * (ABNORMAL) LIPID PROFILE (05/14/2020 10:18 AM CDT) Cholesterol Total 137 <200 mg/dL 05/14/2020 11:41 AM CDT [facility] HDL 28(L) >40 mg/dL 05/14/2020 11:41 AM [facility] Comment: ATP III Classification of HDL Cholesterol: ? <40 mg/dL: ??Considered a major risk factor. ? >60 mg/dL: ??Considered a negative risk factor. ? LDL Calculated 70 <100 mg/dL 05/14/2020 11:41 AM [facility] Comment: ATP III Classification of LDL Cholesterol: ?<100 mg/dL: ??Optimal ? 100 - 129 mg/dL: ??Near Optimal/Above Optimal ? 130 - 159 mg/dL: ??Borderline High ? 160 - 189 mg/dL: ??High ?>190 mg/dL: ??Very High ? Triglycerides 196(H) <150 mg/dL 05/14/2020 11:41 AM [facility] Comment: ATP III Classification of Triglycerides: ?<150 mg/dL: ??Normal ? 150 - 199 mg/dL: ??Borderline High ? 200 - 400 mg/dL: ??High ?>500 mg/dL: ??Very High Blood BLOOD SPECIMEN / Unknown Lab Venipuncture / Unknown 05/14/2020 10:18 AM CDT 05/14/2020 10:55 AM CDT Glenny Martin MD LAB - CHEMISTRY ORDERABLES [facility] [address] [place] [address], [facility] [phone] * (ABNORMAL) PHOSPHORUS BLOOD (05/14/2020 10:18 AM CDT) Phosphorus 5.1(H) 2.3 - 4.7 mg/dL 05/14/2020 11:41 AM T [facility] Blood BLOOD SPECIMEN / Unknown Lab Venipuncture / Unknown 05/14/2020 10:18 AM CDT 05/14/2020 10:55 AM T Glenny Martin MD LAB - CHEMISTRY ORDERABLES [facility] [address] [place] [address], [facility] [phone] * (ABNORMAL) COMPREHENSIVE METABOLIC PANEL (05/14/2020 10:18 AM CDT) BUN 65(H) 7 - 26 mg/dL 05/14/2020 11:41 AM [facility] Creatinine 5.6(H) 0.6 - 1.2 mg/dL 05/14/2020 11:41 AM [facility] Sodium 142 136 - 145 mmol/L 05/14/2020 11:41 AM [facility] Potassium 3.7 3.5 - 4.5 mmol/L 05/14/2020 11:41 AM [facility] Chloride 101 98 - 107 mmol/L 05/14/2020 11:41 AM [facility] CO2 28 22 - 29 mmol/L 05/14/2020 11:41 AM [facility] Glucose 162(H) 70 - 115 mg/dL 05/14/2020 11:41 AM [facility] Calcium 9.0 8.4 - 10.2 mg/dL 05/14/2020 11:41 AM [facility] Protein Total 6.9 6.0 - 8.3 g/dL 05/14/2020 11:41 AM [facility] Albumin 3.7 3.4 - 5.0 g/dL 05/14/2020 11:41 AM [facility] Bilirubin Total 0.7 0.2 - 1.2 mg/dL 05/14/2020 11:41 AM [facility] Alkaline Phosphatase 140 40 - 150 Units/L 05/14/2020 11:41 AM [facility] ALT 43 0 - 55 Units/L 05/14/2020 11:41 AM [facility] AST 29 5 - 34 Units/L 05/14/2020 11:41 AM [facility] Anion Gap 17 8 - 18 05/14/2020 11:41 AM [facility] BUN/Creatinine Ratio 12 7 - 23 05/14/2020 11:41 AM [facility] Osmolality Calculated 316(H) 270 - 300 mOsm/kg 05/14/2020 11:41 AM [facility] Albumin/Globulin Ratio 1.2 1.1 - 2.3 05/14/2020 11:41 AM [facility] eGFR 11(L) >60 mL/min/1.7 3 m2 05/14/2020 11:41 AM [facility] Blood BLOOD SPECIMEN / Unknown Lab Venipuncture / Unknown 05/14/2020 10:18 AM CDT 05/14/2020 10:55 AM T Glenny Martin MD LAB - CHEMISTRY ORDERABLES [facility] [address] [place] [address], [facility] [phone] * (ABNORMAL) CBC W AUTO DIFFERENTIAL (05/14/2020 10:18 AM [facility]) WBC 5.0 3.5 - 10.5 10? 3 /uL 05/14/2020 11:03 AM [facility] RBC 3.45(L) 4.30 - 5.70 10? 6 /uL 05/14/2020 11:03 AM [facility] Hemoglobin 10.7(L) 13.5 - 17.5 g/dL 05/14/2020 11:03 AM [facility] Hematocrit 31.1(L) 39.0 - 50.0 % 05/14/2020 11:03 AM [facility] MCV 90.1 81.0 - 97.0 fL 05/14/2020 11:03 AM [facility] MCH 31.0 28.0 - 34.0 pg 05/14/2020 11:03 AM [facility] MCHC 34.4 32.0 - 36.0 g/dL 05/14/2020 11:03 AM [facility] Platelet Count 232 150 - 400 10? 3 /uL 05/14/2020 11:03 AM [facility] RDW-SD 42.4 36.0 - 50.0 fL 05/14/2020 11:03 AM [facility] RDW-CV 12.9 11.2 - 14.8 % 05/14/2020 11:03 AM [facility] MPV 9.8 9.3 - 12.8 fL 05/14/2020 11:03 AM [facility] nRBC Absolute 0.00 0 10? 3 /uL 05/14/2020 11:03 AM [facility] nRBC Auto 0.0 0 /100 WBC 05/14/2020 11:03 AM [facility] Neutrophils % 54.8 35.0 - 70.0 % 05/14/2020 11:03 AM [facility] Lymphocytes % 31.2 19.7 - 55.1 % 05/14/2020 11:03 AM [facility] Monocytes % 9.4 3.0 - 15.0 % 05/14/2020 11:03 AM [facility] Eosinophils % 3.8 0.0 - 6.0 % 05/14/2020 11:03 AM [facility] Basophil % 0.6 0.0 - 1.5 % 05/14/2020 11:03 AM [facility] Neutrophils Absolute 2.7 1.6 - 7.0 10? 3 /uL 05/14/2020 11:03 AM [facility] Lymphocyte Absolute 1.6 0.8 - 2.9 10? 3 /uL 05/14/2020 11:03 AM [facility] Monocytes Absolute 0.47 0.14 - 0.66 10? 3 /uL 05/14/2020 11:03 AM [facility] Eosinophils Absolute 0.19 0.00 - 0.45 10? 3 /uL 05/14/2020 11:03 AM [facility] Basophils Absolute 0.03 0.00 - 0.06 10? 3 /uL 05/14/2020 11:03 AM [facility] Immature Granulocytes % 0.2 0.0 - 1.0 % 05/14/2020 11:03 AM [facility] Blood BLOOD SPECIMEN / Unknown Lab Venipuncture / Unknown 05/14/2020 10:18 AM CDT 05/14/2020 10:55 AM CDT Glenny Martin MD LAB - HEMATOLOG Y ORDERABLES [facility] [address] [place] [address], [place] [phone] * BLOOD TYPE ABO+ RH PANEL (05/14/2020 10:18 AM CDT) ABO Rh A POS 05/14/2020 12:11 PM CDT [facility] Blood BLOOD SPECIMEN / Unknown Lab Venipuncture / Unknown 05/14/2020 10:18 AM CDT 05/14/2020 11:29 AM CDT Glenny Martin MD LAB - BLOOD BAN K ORDERABLES Performing Organization Address [facility]/[place] Co de Phone Number [facility] [address] [place] [address], [place] [phone] * PROTEIN C ACTIVITY (05/14/2020 10:18 AM CDT) Protein C Activity 155 83 - 168 % 05/16/2020 10:47 PM CDT [facility] ([facility]) Comment: INTERPRETIVE INFORMATION: Protein C, Functional Patients [...] reference intervals for this test in the [facility] ([employer]). Performed by [facility], [address] [place] [id number] [email or web address], Valerie Mast MD, Lab. Director Blood BLOOD SPECIMEN / Unknown Lab Venipuncture / Unknown 05/14/2020 10:18 AM CDT 05/14/2020 10:48 AM CDT Glenny Martin MD LAB - COAGULATI ON ORDERABLES [facility] ([facility]) [address] * RUBELLA ANTIBODY IGG TITER (05/14/2020 10:18 AM CDT) Rubella Antibody IgG 50.1 IU/mL 05/16/2020 6:32 PM CDT [facility] [email or web address] ([facility]) Comment: INTERPRETIVE INFORMATION: Rubella Antibody, IgG ??Less [...] the amount of antibody present. Performed By: [facility] [address] [place] [address] Cdl Service Technician: Valerie Mast MD Blood BLOOD SPECIMEN / Unknown Lab Venipuncture / Unknown 05/14/2020 10:18 AM CDT 05/14/2020 10:56 AM CDT Glenny Martin MD LAB - SEROLOGY ORDERABLES [facility] [email or web address] ([facility]) [address] * TYPE + SCREEN PANEL (05/14/2020 10:06 AM CDT) Pathologist [facility] Antibody Screen NEG 0 12:17 PM CDT [facility] ABO Rh A POS 05/14/2020 12:17 PM CDT [facility] Blood Bank BLOOD SPECIMEN / Unknown Lab Venipuncture / Unknown 05/14/2020 10:06 AM CDT 05/14/2020 11:30 AM CDT Glenny Martin MD LAB - BLOOD BAN K ORDERABLES [facility] [address] [place] [address], [facility] [phone] documented in this encounter Visit Diagnoses Diagnosis Pre-transplant evaluation for kidney transplant- Primary documented in this encounter Care Teams Necktie Stitcher Relationship Specialty Start Date End Date Aditya Castro Update Information PCP - General 03/06/19 documented as of this encounter
--- OUTSIDE RECORDS SUMMARY | 2024-09-07 18:58 | XMS_ITS | Encounter Summary ---
Author Organization [facility] Address [address] [place] [address] Care Team Providers Care Flare Stitcher Name Role Phone Matthew Aditya Ellison Primary Care Provider Unavailab le Reason for Visit * Reason Onset Date Comments Med Question 06/25/2019 Encounter Details Date Type Department Care Team (Late st Contact Info) Description 06/25/2019 Telephone [facility] [address] [place] [address] Finn Kramer MD [address] [place] [address] Med Question Social History Tobacco Use Types [...] pt he is asking that we call [facility] at [phone] and talk to them about the compression stockings. I called and spoke with Kashif at [facility] and gave clarification the the mmHg I let them know that they should Be the 20-30mmHg . He understood and will get them ready for pt. Anali Connelly CH PROFESSOR * Telephone Encounter - Theodore Huerta - 06/25/2019 10:40 AM CST Pt called saying patient pharmacy just needs clarification of a number on the prescription for compression socks. Please Advise. CH PROFESSOR documented in this encounter Plan of Treatment Not on file documented as of this encounter Visit Diagnoses Not on filedocumented in this encounter Care Teams Flare Stitcher Relationship Specialty Start Date End Date Aditya Castro Update Information PCP - General 03/06/19 documented as of this encounter
--- OUTSIDE RECORDS SUMMARY | 2024-09-07 18:58 | XMS_ITS | Encounter Summary ---
Author Organization [facility] Address [address] [facility] [place] [address] Care Team Providers Care Carport Erector Name Role Phone Aditya Castro Primary Care Provider Unavailab le Reason for Visit * Reason Comments Kidney Transplant Evaluation Encounter Details Date Type Department Care Team (Late st Contact Info) Description 04/06/2020 Telephone [facility] [address] [place] [phone] Gracie Chambers, RN Kidney Transplant Evaluation [...] on filedocumented in this encounter Care Teams Carport Erector Relationship Specialty Start Date End Date Aditya Castro Update Information PCP - General 03/06/19 documented as of this encounter
--- OUTSIDE RECORDS SUMMARY | 2024-09-07 18:58 | XMS_ITS | Encounter Summary ---
Author Organization [facility] Address [address] [facility] [place] [address] Care Team Providers Care Autistic Teacher Name Role Phone Aditya Castro Primary Care Provider Unavailab le Reason for Referral * Radiology Services (Routine) - Closed Specialty Diagnoses / Procedures Referred By Aguilar lora Referred To Contact Diagnoses Pre-transplant evaluation for kidney transplant Procedures VAS ARTERIAL ANKLE ARM INDEX Glenny Martin MD [address] [place] [address] [facility] [address] [place] [phone] Referral ID Status Reason Start Date Expiration Date Visits Re quested Visits Authorized [id number] Closed 05/14/2020 08/13/2020 1 1 * Radiology Services (Routine) - Closed Specialty Diagnoses / Procedures Referred By Aguilar lora Referred To Contact Diagnoses Pre-transplant evaluation for kidney transplant Procedures VAS BILATERAL VENOUS DUPLEX LE Glenny Martin MD [address] [place] [address] [facility] Transplant [address] [place] [phone] Referral ID Status Reason Start Date Expiration Date Visits Re quested Visits Authorized [id number] Closed 05/14/2020 08/13/2020 1 1 * Radiology Services (Routine) - Closed Specialty Diagnoses / Procedures Referred By Aguilar lora Referred To Contact Diagnoses Pre-transplant evaluation for kidney transplant Procedures CT ABDOMEN AND PELVIS NON IV CONTRAST Glenny Martin MD [address] [place] [address] [facility] Transplant [address] [place] [phone] Referral ID Status Reason Start Date Expiration Date Visits Re quested Visits Authorized [id number] Closed 05/14/2020 08/13/2020 1 1 * Radiology Services (Routine) - Closed Specialty Diagnoses / Procedures Referred By Aguilar lora Referred To Contact Diagnoses Pre-transplant evaluation for kidney transplant Procedures ECHO STRESS TEST W DOBUTAMINE Glenny Martin MD [address] [place] [address] [facility] Trans[facility] [address] [place] [phone] Referral ID Status Reason Start Date Expiration Date Visits Re quested Visits Authorized [id number] Closed 05/14/2020 08/13/2020 1 1 Reason for Visit * Reason Comments Kidney Transplant Evaluation health hist ory Encounter Details Date Type Department Care Team (Late st Contact Info) Description 03/20/2020 Telephone [facility] [address] [place] [phone] Anali Merino RN Kidney Transplant Evaluation [...] prior to starting testing. Pt has a hse specialist Dr. Ortega. 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 In 2019 admitted to [facility] with chest pain and SOB. Pt believes [...] has a pump. He does have an Insulation Blower Vashti Lizama NP. He states that he [...] Colonoscopy completed in 2019 at [facility]. Pt thinks the recommendation was a 5 year followup. Will request records. Pt sees a quality assurance calibrator regularly. Reviewed process and test needed. Let [...] Dictated by Ash Moreira MD (vice president of instruction). I, Dr. HANNAH SPENCE have personally reviewed [...] artery calcifications. Aortic annulus calcifications. Dictated by sAh Moreira MD (vice president of instruction). I, Dr. HANNAH SPENCE have personally reviewed [...] % PRA 4 05/29/2020 7:59 AM CDT [facility] ([facility]) Class 1 LUM Specificity - 05/29/2020 7:59 AM CDT [facility] ([facility]) Class 1 LUM Test Date 0 05/29/2020 7:59 AM CDT [facility] ([facility]) Comment: This test was developed and its performance characteristics determined by the [facility]. ??It has not been cleared or [...] high complexity clinical laboratory testing. ??CLIA ID# [id number] Performed at: ??[facility], [address] @ [place], [place] ??[phone] Remotely Operated Vehicle: Jarrod Chin MD, Blood BLOOD SPECIMEN / Unknown Lab Venipuncture / Unknown 05/14/2020 10:18 AM CDT 05/14/2020 10:52 AM CDT Glenny Martin MD LAB - BLOOD BAN K ORDERABLES [facility] ([facility]) [address] [place] [address], [facility] * HLA ANTIBODY SCREEN LUM CLASS 2 ID (05/14/2020 10:18 AM CDT) % PRA 90 05/29/2020 7:59 AM CDT [facility] ([facility]) Class 2 LUM Specificity - 05/29/2020 7:59 AM CDT [facility] ([facility]) Class 2 LUM Test Date 0 05/29/2020 7:59 AM CDT [facility] ([facility]) Comment: This test was developed and its performance characteristics determined by the [facility]. ??It has not been cleared or approved [...] high complexity clinical laboratory testing. ??CLIA ID# [id number] Performed at: ??[facility], [address] @ [place], [place] ??[phone] Remotely Operated Vehicle: Jarrod Chin MD, Blood BLOOD SPECIMEN / Unknown Lab Venipuncture / Unknown 05/14/2020 10:18 AM CDT 05/14/2020 10:52 AM CDT Glenny Martin MD LAB - BLOOD BAN K ORDERABLES Performing Organization Address City/[facility]/ZIP Co de Phone Number [facility] ([facility]) [address] [place] [phone], [facility] * HIV-1 HIV-2 ANTIGEN/ANTIBODY (05/14/2020 10:18 AM CDT) HIV Antigen/Antibod y 1 & 2 Non-reacti ve Non-react bianca 05/14/2020 11:49 AM CDT [facility] Comment:Neither HIV-1 p24 An tigen nor HIV-1/HIV-2 Antibodies are detected. Blood BLOOD SPECIMEN / Unknown Lab Venipuncture / Unknown 05/14/2020 10:18 AM CDT 05/14/2020 10:57 AM CDT Glenny Martin MD LAB - HEMATOLOG Y ORDERABLES Performing Organization Address City/[facility]/ZIP Co de Phone Number [address] [address], [facility] [phone] * (ABNORMAL) HEPATITIS A ANTIBODY (05/14/2020 10:18 AM CDT) Hepatitis A Virus Antibody Total Positive( A) Negative 05/16/2020 11:02 AM CDT [facility] ([facility]) Comment: The positive anti-HAV is consistent with recent or remote Hepatitis A infection or antibody response to HAV vaccination. False positive anti-HAV can occur. Performed by [facility], [address] [place] [id number] [email or web address], Valerie Mast MD, Lab. Director Blood BLOOD SPECIMEN / Unknown Lab Venipuncture / Unknown 05/14/2020 10:18 AM CDT 05/14/2020 10:57 AM CDT Glenny Martin MD LAB - CHEMISTRY ORDERABLES Performing Organization Address City/[facility]/ZIP Co de Phone Number [facility] ([facility]) [address] * (ABNORMAL) PTH INTACT ([facility]) (05/14/2020 10:18 AM CDT) [facility] PTH Intact 653.3(H) 8.0 - 77.0 pg/mL 05/14/2020 11:34 AM CDT [facility] Blood BLOOD SPECIMEN / Unknown Lab Venipuncture / Unknown 05/14/2020 10:18 AM CDT 05/14/2020 10:55 AM CDT Glenny Martin MD LAB - CHEMISTRY ORDERABLES Performing Organization Address [facility]/ZIP Co de Phone Number [id number] [place] [address], [facility] [phone] * TOXOPLASMA GONDII ANTIBODY IGG (05/14/2020 10:18 AM CDT) [facility] Toxoplasma Antibody IgG <3.0 IU/mL 05/16/2020 6:32 PM CDT [facility] ([facility]) Comment: INTERPRETIVE INFORMATION: Toxoplasma Ab, IgG [...] the amount of antibody present. Performed By: [facility] [address] [place] [address] Emergency Generator Mechanic: Valerie Mast MD Blood BLOOD SPECIMEN / Unknown Lab Venipuncture / Unknown 05/14/2020 10:18 AM CDT 05/14/2020 10:58 AM CDT Glenny Martin MD LAB - CHEMISTRY ORDERABLES [facility] [place] [employer] ([facility]) [address] [place] [address], [facility] * STRONGYLOIDES ANTIBODY IGG (05/14/2020 10:18 AM CDT) Strongyloides Antibody IgG 0.2 <=0.9 IV 05/17/2020 10:58 PM CDT [facility] [place] [employer] ([facility]) Comment: INTERPRETIVE INFORMATION: Strongyloides Ab, IgG [...] also result in false-positive results. Performed By: [employer] [facility] [address] [place] [address] Emergency Generator Mechanic: Valerie Mast MD Blood BLOOD SPECIMEN / Unknown Lab Venipuncture / Unknown 05/14/2020 10:18 AM CDT 05/14/2020 10:55 AM CDT Glenny Martin MD LAB - SEROLOGY ORDERABLES Performing Organization Address [facility] Co de Phone Number [facility] ([facility]) [address] [place], [place] [address] * PROSTATE SPECIFIC ANTIGEN SCREEN (05/14/2020 10:18 AM CDT) PSA Total 0.4 0.0 - 4.0 ng/mL 05/14/2020 11:59 AM CDT [facility] Blood BLOOD SPECIMEN / Unknown Lab Venipuncture / Unknown 05/14/2020 10:18 AM CDT 05/14/2020 10:55 AM CDT Glenny Martin MD LAB - CHEMISTRY ORDERABLES Performing Organization Address [facility]/ZIP Co de Phone Number [address] [address], [facility] [phone] * CANNABINOID SCREEN BLOOD (05/14/2020 10:18 AM CDT) Marijuana Metabolites Negative 05/17/2020 12:06 AM CDT [facility] ([facility]) Comment:REFERENCE RANGE: thr shold: 5 ng/mL Specimen Type Comment 05/17/2020 12:06 AM CDT [facility] ([facility]) Comment: WHOLE BLOOD This specimen was [...] CDT 05/14/2020 10:53 AM CDT Narrative [facility] ([facility]) - 05/17/2020 12:06 AM CDT Performed at: ??01 - [employer] [address] [place] [address] ??[phone] Remotely Operated Vehicle: Radha Callahan [facility], Phone: ??[phone] Glenny Martin MD LAB - CHEMISTRY ORDERABLES [facility] ([facility]) [address] [place] [address] * IRON BLOOD (05/14/2020 10:18 AM CDT) Iron 84 50 - 175 mcg/dL 05/14/2020 11:41 AM CDT [facility] Blood BLOOD SPECIMEN / Unknown Lab Venipuncture / Unknown 05/14/2020 10:18 AM CDT 05/14/2020 10:57 AM CDT Glenny Martin MD LAB - CHEMISTRY ORDERABLES Performing Organization Address [facility]/ZIP Co de Phone Number [address] [address], [place] [phone] * (ABNORMAL) FERRITIN (05/14/2020 10:18 AM CDT) Ferritin 502(H) 22 - 275 ng/mL 05/14/2020 11:47 AM CDT [facility] Blood BLOOD SPECIMEN / Unknown Lab Venipuncture / Unknown 05/14/2020 10:18 AM CDT 05/14/2020 10:55 AM CDT Glenny Martin MD LAB - CHEMISTRY ORDERABLES Performing Organization Address [facility]/ZIP Co de Phone Number [address] [address], [place] [phone] * TRANSFERRIN (05/14/2020 10:18 AM CDT) Transferrin 245 174 - 382 mg/dL 05/14/2020 11:41 AM CDT [facility] Transferrin Saturation % 27 16 - 50 % 05/14/2020 11:41 AM CDT [facility] Blood BLOOD SPECIMEN / Unknown Lab Venipuncture / Unknown 05/14/2020 10:18 AM CDT 05/14/2020 10:57 AM CDT Glenny Martin MD LAB - CHEMISTRY ORDERABLES Performing Organization Address City/[facility] Co de Phone Number [facility] [address] [place] [address], [facility] [phone] * (ABNORMAL) VITAMIN D 25-HYDROXY (05/14/2020 10:18 AM CDT) [facility] Vitamin D, 25 Hydroxy 23.0(L) See comment: ng/mL 05/14/2020 11:48 AM CDT [facility] Comment: The recommendations for 25-Hydroxy [...] Martin MD LAB - CHEMISTRY ORDERABLES [facility] [address] [place] [address], [place] [phone] * (ABNORMAL) URIC ACID BLOOD (05/14/2020 10:18 AM CDT) Pathologist [facility] Uric Acid 8.4(H) 2.6 - 7.2 mg/dL 05/14/2020 11:41 AM CDT [facility] Blood BLOOD SPECIMEN / Unknown Lab Venipuncture / Unknown 05/14/2020 10:18 AM CDT 05/14/2020 10:55 AM CDT Glenny Martin MD LAB - CHEMISTRY ORDERABLES Performing Organization Address [facility]/ZIP Co de Phone Number [facility] [address] [place] [address], [place] [phone] * HLA TYPING DNA LOW RESOLUTION DR,DQ (05/14/2020 10:18 AM CDT) Pathologist [facility] Department DR DQ Low Resolution DRB1-1 04 05/29/2020 7:59 AM CDT [facility] ([facility]) DR DQ Low Resolution DRB1-2 11 05/29/2020 7:59 AM CDT [facility] ([facility]) DR DQ Low Resolution DQB1-1 03 (DQ7) 05/29/2020 7:59 AM CDT [facility] ([facility]) DR DQ Low Resolution DQB1-2 03 (DQ8) 05/29/2020 7:59 AM CDT [facility] ([facility]) DR DQ Low Resolution DRB3-1 02 05/29/2020 7:59 AM CDT [facility] ([facility]) DR DQ Low Resolution DRB3-2 Negative 05/29/2020 7:59 AM CDT [facility] ([facility]) DR DQ Low Resolution DRB4-1 01 05/29/2020 7:59 AM CDT [facility] ([facility]) DR DQ Low Resolution DRB4-2 Negative 05/29/2020 7:59 AM CDT [facility] ([facility]) DR DQ Low Resolution DRB5-1 Negative 05/29/2020 7:59 AM CDT [facility] ([facility]) DR DQ Low Resolution DRB5-2 Negative 05/29/2020 7:59 AM CDT [facility] ([facility]) DR DQ Low Resolution Methodology SSOP 05/29/2020 7:59 AM CDT [facility] ([facility]) Comment DR DQ Low Resolution - 05/29/2020 7:59 AM CDT [facility] ([facility]) DR DQ Low Resolution test date 05/28/2020 05/29/2020 7:59 AM CDT [facility] ([facility]) Comment: This test was developed and its performance characteristics determined by the [facility]. ??It has not been cleared or [...] high complexity clinical laboratory testing. ??CLIA ID# [id number] Performed at: ??[facility], [address] @ [place], [place] ??[phone] Remotely Operated Vehicle: Jarrod Chin MD, Blood BLOOD SPECIMEN / Unknown Lab Venipuncture / Unknown 05/14/2020 10:18 AM CDT 05/14/2020 10:52 AM CDT Glenny Martin MD LAB - BLOOD BAN K ORDERABLES [facility] ([facility]) [address] [place] [address], [facility] * HLA TYPING DNA LOW RESOLUTION A,B,C (05/14/2020 10:18 AM CDT) ABC DNA A1 03 05/29/2020 7:59 AM CDT [facility] ([facility]) ABC DNA A2 29 05/29/2020 7:59 AM CDT [facility] ([facility]) ABC DNA B1 07 05/29/2020 7:59 AM CDT [facility] ([facility]) ABC DNA B2 44 05/29/2020 7:59 AM CDT [facility] ([facility]) ABC DNA BW1 6 05/29/2020 7:59 AM CDT [facility] ([facility]) ABC DNA BW2 4 05/29/2020 7:59 AM CDT [facility] ([facility]) ABC DNA C1 07 05/29/2020 7:59 AM CDT [facility] ([facility]) ABC DNA C2 - 05/29/2020 7:59 AM CDT [facility] ([facility]) ABC DNA Methodology SSOP 05/29 7:59 AM CDT [facility] ([facility]) Comment ABC DNA - 0 7:59 AM CDT [facility] ([facility]) ABC DNA Test Date 0 05/29/2020 7:59 AM CDT [facility] ([facility]) Comment: This test was developed and its performance characteristics determined by the [facility]. ??It has not been cleared or [...] high complexity clinical laboratory testing. ??CLIA ID# [id number] Performed at: ??[facility], [address] @ [place], [place] ??[phone] Remotely Operated Vehicle: Jarrod Chin MD, Blood BLOOD SPECIMEN / Unknown Lab Venipuncture / Unknown 05/14/2020 10:18 AM CDT 05/14/2020 10:52 AM CDT Glenny Martin MD LAB - BLOOD BAN K ORDERABLES [facility] ([facility]) [address] [place] [address], [facility] * VARICELLA ZOSTER ANTIBODY IGG (05/14/2020 10:18 AM CDT) Varicella zoster Virus Antibody IgG 3705.0 IV 05/16/2020 2:46 PM CDT [facility] ([facility]) Comment: INTERPRETIVE INFORMATION: VZV Ab, IgG [...] laboratory at the same time. Performed By: [facility] [address] [place] [address] Emergency Generator Mechanic: Valerie Mast MD Blood BLOOD SPECIMEN / Unknown Lab Venipuncture / Unknown 05/14/2020 10:18 AM CDT 05/14/2020 10:57 AM CDT Glenny Martin MD LAB - CHEMISTRY ORDERABLES [facility] [place] [employer] [facility]) [address] [place] [address], [facility] * MUMPS ANTIBODY IGG (05/14/2020 10:18 AM CDT) Mumps Virus Antibody IgG 17.2 AU/mL 05/16/2020 6:30 PM CDT [facility] [place] [employer] ([facility]) Comment: INTERPRETIVE INFORMATION: Mumps Ab, IgG [...] laboratory at the same time. Performed By: [facility] [address] [place] [address] Emergency Generator Mechanic: Valerie Mast MD Blood BLOOD SPECIMEN / Unknown Lab Venipuncture / Unknown 05/14/2020 10:18 AM CDT 05/14/2020 10:57 AM CDT Glenny Martin MD LAB - CHEMISTRY ORDERABLES Performing Organization Address City/State/[facility] Co de Phone Number [employer] ([facility]) [address] [place] [address], [facility] * RUBEOLA ANTIBODY IGG (05/14/2020 10:18 AM CDT) Measles ([place]) Antibody IgG >300.0 AU/mL 05/16/2020 2:46 PM CDT [employer] ([facility]) Comment: INTERPRETIVE INFORMATION: Measles ([place]) Antibody, [...] laboratory at the same time. Performed By: [facility] [address] [place] [address] Emergency Generator Mechanic: Valerie Mast MD Blood BLOOD SPECIMEN / Unknown Lab Venipuncture / Unknown 05/14/2020 10:18 AM CDT 05/14/2020 10:57 AM CDT Glenny Martin MD LAB - CHEMISTRY ORDERABLES [facility] [place] [employer] ([facility]) [address] [place] [address], [facility] * OPIATES BLOOD (05/14/2020 10:18 AM CDT) [facility] Opiates Screen Negative 05/17/2020 12:06 AM CDT [facility] ([facility]) Comment:REFERENCE RANGE: thr shold: 10 ng/mL Oxycodone Screen Negative 05/17/20 12:06 AM CDT [facility] ([facility]) Comment:REFERENCE RANGE: thr shold: 10 ng/mL Specimen Type Comment 05/17/2020 12:06 AM CDT [facility] ([facility]) Comment: WHOLE BLOOD This specimen was screened by immunoassay at the thresholds listed above. Presumptive positive results have not been confirmed by an alternate method; results are intended for clinical medical purposes. Please contact the laboratory if confirmatory testing is desired. This test was developed and its performance characteristics determined by [employer]. It has not been cleared or approved by the Food and Drug Administration. Blood BLOOD SPECIMEN / Unknown Lab Venipuncture / Unknown 05/14/2020 10:18 AM CDT 05/14/2020 10:53 AM CDT [facility]ative [facility] - 05/17/2020 12:06 AM CDT Performed at: ??01 - [employer] [address] ??[phone] Remotely Operated Vehicle: Radha Callahan [facility], Phone: ??[phone] Glenny Martin MD LAB - CHEMISTRY ORDERABLES Performing Organization Address [facility]/State/[facility] Co de Phone Number [facility] ([facility]) [address] [phone] * COCAINE METABOLITE QUANT (05/14/2020 10:18 AM CDT) [facility] Cocaine and Metabolite Blood <20 ng/mL 05/17/2020 11:07 PM CDT [facility] ([facility]) Comment: INTERPRETIVE INFORMATION: Cocaine Metabolite, ?Serum or Plasma, ?Quantitative Methodology: Quantitative Gas Chromatography- Mass Spectrometry Positive cutoff: 20 ng/mL ?? For medical purposes only; not valid for forensic use. The concentration value must be greater than or equal to the cutoff to be reported as positive. Interpretive questions should be directed to the laboratory. Test developed and characteristics determined by [employer]. See Compliance Statement B: [employer]/ Performed By: [facility] [address] [place] [id number] Emergency Generator Mechanic: Valerie Mast MD Blood BLOOD SPECIMEN / Unknown Lab Venipuncture / Unknown 05/14/2020 10:18 AM CDT 05/14/2020 10:55 AM CDT Glenny Martin MD LAB - CHEMISTRY ORDERABLES [facility]) [address] [place] [address], [facility] * AMPHETAMINE BLOOD CONFIRMATION (05/14/2020 10:18 AM CDT) Amphetamines Confirmation <20 ng/mL 05/20/2020 12:29 PM CDT [facility] ([facility]) Comment: INTERPRETIVE INFORMATION: Amphetamines, Serum or [...] laboratory. Test developed and characteristics determined by [facility]. See Compliance Statement B: [email or web address] Methamphetamine Confirmation <20 ng/mL 05/20/2020 12:29 PM CDT [facility] ([facility]) MDA Confirmation <20 ng/mL 05/20/20 20 12:29 PM CDT [email or web address]) MDMA Confirm <20 ng/mL 05/20/2020 12:29 PM CDT [facility] [place] [employer] [facility]) MDEA Confirmation <20 ng/mL 020 12:29 PM CDT [facility] [place] [employer] [facility]) Comment: Performed By: [facility] [address] [place] [address] Emergency Generator Mechanic: Valerie Mast MD Blood BLOOD SPECIMEN / Unknown Lab Venipuncture / Unknown 05/14/2020 10:18 AM CDT 05/14/2020 10:57 AM CDT Glenny Martin MD LAB - CHEMISTRY ORDERABLES [facility]) [address] [place] [address], [facility] * NICOTINE + METABOLITES BLOOD (05/14/2020 10:18 AM CDT) Nicotine <2 ng/mL 05/18/2020 10:08 PM CDT [facility] ([facility]) Comment: Consistent with abstinence from nicotine-containing [...] ?? Test developed and characteristics determined by [employer]. See Compliance Statement B: [email or web address] Performed By: [facility] [address] [id number] Emergency Generator Mechanic: Valerie Mast MD 3-Hydroxy Cotinine <2 ng/mL 2019 10:08 PM CDT [facility]) Cotinine <2 ng/mL 05/18/2020 10:08 PM CDT [facility]) Blood BLOOD SPECIMEN / Unknown Lab Venipuncture / Unknown 05/14/2020 10:18 AM CDT 05/14/2020 10:57 AM CDT Glenny Martin MD LAB - CHEMISTRY ORDERABLES [facility] ([facility]) [address] [place] [address], [facility] * ALCOHOL ETHYL BLOOD (05/14/2020 10:18 AM CDT) Pathologist [facility] Interpretation Ethanol None Detected None Detected mg/dL 05/14/2020 11:41 AM CDT [facility] Comment:Ethanol levels less than 10 mg/dL are resulted as None detected . Blood BLOOD SPECIMEN / Unknown Lab Venipuncture / Unknown 05/14/2020 10:18 AM CDT 05/14/2020 10:55 AM CDT Glenny Martin MD LAB - CHEMISTRY ORDERABLES Performing Organization Address [facility] Co de Phone Number [facility] [address] [place] [phone], [facility] [phone] * SYPHILIS ANTIBODY CASCADING REFLEX (05/14/2020 10:18 AM CDT) [facility] Treponema pallidum Antibody Non-react bianca Non-react bianca 05/14/2020 11:47 AM CDT [facility] Comment: No Laboratory evidence of syphilis infection. ?? Note: ??Circulating antibodies may be low or undetectable in early infection. ??If recent exposure is suspected, re-draw sample in 2-4 weeks and repeat testing. Blood BLOOD SPECIMEN / Unknown Lab Venipuncture / Unknown 05/14/2020 10:18 AM CDT 05/14/2020 10:55 AM CDT Glenny Martin MD LAB - SEROLOGY ORDERABLES Performing Organization Address [facility]/ZIP Co de Phone Number [facility] [address] [place] [phone], [place] [phone] * (ABNORMAL) HEMOGLOBIN A1C (05/14/2020 10:18 AM CDT) [facility] Hemoglobin A1c 7.7(H) 4.4 - 6.3 % 05/14/2020 3:37 PM CDT [facility] Estimated Average Glucose 174 mg/dL 05/14/2020 3:37 PM CDT [facility] Comment: HbA1c Interpretation: Treatment target values recommended by ADA and other clinical organizations should be used to evaluate metabolic control in patients. Treatment Target Values: Normal : < 5.7% Pre-diabetes: 5.7-6.4% Diabetes: Equal to or greater than 6.5% Reference: [place] [employer] Standards of Care in Diabetes -2014 In patients 70 years and older consider HbA1c target range of 7.0-7.5% Reference: ??Diabetes Mellitus in Older People: Position Statement on behalf of the International Association of Gerontology and Geriatrics (IAGG), the Diabetes Working Republican for Older People (EDWPOP), and the International Task Force of Experts in Diabetes. ??Hermelindo Remy, et al. J [place] [employer]. 2012 Test results diagnostic of diabetes should be repeated for confirmation. The Sebia Capillary 2 assay for the measurement of HbA1c is a National Glycohemoglobin Standardization Program (NGSP)certified method. Blood BLOOD SPECIMEN / Unknown Lab Venipuncture / Unknown 05/14/2020 10:18 AM CDT 05/14/2020 10:55 AM CDT Glenny Martin MD LAB - CHEMISTRY ORDERABLES Performing Organization Address City/State/[facility] Co de Phone Number [facility] [address] [address], [facility] [phone] * (ABNORMAL) MADIHA-MORRIS VIRUS ANTIBODY TO VCA IGG (05/14/2020 10:18 AM CDT) [facility] Madiha-Morris Virus Antibody IgG Viral Capsid Antigen 115.0(H) 0.0 - 21.9 U/mL 05/16/2020 5:10 PM CDT [facility] [place] [employer] ([facility]) Comment: INTERPRETIVE INFORMATION: Madiha-Morris Virus Antibody to ?Viral Capsid Antigen, IgG ??17.9 U/mL or less.......Not Detected ??18.0-21.9 U/mL..........Indeterminate - Repeat testing in ?10-14 days may be helpful. ??22.0 U/mL or greater....Detected Performed By: [employer] [address] [place] [address] Emergency Generator Mechanic: Valerie Mast MD Blood BLOOD SPECIMEN / Unknown Lab Venipuncture / Unknown 05/14/2020 10:18 AM CDT 05/14/2020 10:55 AM CDT Glenny Martin MD LAB - CHEMISTRY ORDERABLES [facility]) [address] [place] [address], [facility] * CYTOMEGALOVIRUS ANTIBODY IGG BLOOD (05/14/2020 10:18 AM CDT) Cytomegalovirus Antibody IgG >10.00 U/mL 05/16/2020 6:28 PM CDT [facility] [place] [employer] ([facility]) Comment: INTERPRETIVE INFORMATION: Cytomegalovirus Antibody, IgG [...] laboratory at the same time. Performed By: [employer] [address] [place] [address] Emergency Generator Mechanic: Valerie Mast MD Blood BLOOD SPECIMEN / Unknown Lab Venipuncture / Unknown 05/14/2020 10:18 AM CDT 05/14/2020 10:55 AM CDT Glenny Martin MD LAB - CHEMISTRY ORDERABLES [facility] ([facility]) [address] * HEPATITIS C ANTIBODY (05/14/2020 10:18 AM CDT) Hepatitis C Antibody Non-react bianca Non-reac tive 05/14/2020 11:49 AM CDT [facility] Comment:Hepatitis C Antibody screen indicates no [...] LAB - CHEMISTRY ORDERABLES Performing Organization Address City/[facility]/ZIP Co de Phone Number [facility] [address] [place] [phone] [phone] * (ABNORMAL) HEPATITIS B SURFACE ANTIBODY (05/14/2020 10:18 AM CDT) Hepatitis B Virus Surface Antibody Reactive( A) Non-react bianca 05/14/2020 11:47 AM CDT [facility] Comment: > 12 mIU/mL Hepatitis B surface Antibody (HBsAb). Reactive for HBsAb - individual is considered immune to Hepatitis B Virus infection. Hepatitis B Surface Antibody Quantitative 72.7(H) <8.0 mIU/mL 05/14/2020 11:47 AM CDT [facility] Comment: Hepatitis B Surface Antibody Numeric Result Interpretation: ? Nonreactive: ?<8.0 mIU/mL ? Indeterminate: ??8.0 - 12.0 mIU/mL ? Reactive: ?>12.0 mIU/mL ? Blood BLOOD SPECIMEN / Unknown Lab Venipuncture / Unknown 05/14/2020 10:18 AM CDT 05/14/2020 10:55 AM CDT Glenny Martin MD LAB - CHEMISTRY ORDERABLES Performing Organization Address City/[facility]/ZIP Co de Phone Number [address] [phone], [place] [phone] * HEPATITIS B CORE ANTIBODY (05/14/2020 10:18 AM CDT) HBc Antibody Total Non-reacti ve Non-reacti ve 05/14/2020 11:47 AM CDT [facility] Blood BLOOD SPECIMEN / Unknown Lab Venipuncture / Unknown 05/14/2020 10:18 AM CDT 05/14/2020 10:55 AM CDT Glenny Martin MD LAB - CHEMISTRY ORDERABLES Performing Organization Address [facility] Co de Phone Number [address] [address], [place] [phone] * HEPATITIS B SURFACE ANTIGEN W RFLX CONFIRMATION (05/14/2020 10:18 AM CDT) Hepatitis B Virus Surface Antigen Non-reacti ve Non-reacti ve 05/14/2020 11:47 AM CDT [facility] Blood BLOOD SPECIMEN / Unknown Lab Venipuncture / Unknown 05/14/2020 10:18 AM CDT 05/14/2020 10:55 AM CDT Glenny Martin MD LAB - CHEMISTRY ORDERABLES Performing Organization Address [facility] Co de Phone Number [address] [address], [place] [phone] * (ABNORMAL) LIPID PROFILE (05/14/2020 10:18 AM CDT) [facility] Cholesterol Total 137 <200 mg/dL 05/14/2020 11:41 AM [facility] HDL 28(L) >40 mg/dL 05/14/2020 11:41 AM [facility] Comment: ATP III Classification of HDL Cholesterol: ? <40 mg/dL: ??Considered a major risk factor. ? >60 mg/dL: ??Considered a negative risk factor. ? LDL Calculated 70 <100 mg/dL 05/14/2020 11:41 AM [facility] Comment: ATP III Classification of LDL Cholesterol: ?<100 mg/dL: ??Optimal ? 100 - 129 mg/dL: ??Near Optimal/Above Optimal ? 130 - 159 mg/dL: ??Borderline High ? 160 - 189 mg/dL: ??High ?>190 mg/dL: ??Very High ? Triglycerides 196(H) <150 mg/dL 05/14/2020 11:41 AM [facility] Comment: ATP III Classification of Triglycerides: ?<150 mg/dL: ??Normal ? 150 - 199 mg/dL: ??Borderline High ? 200 - 400 mg/dL: ??High ?>500 mg/dL: ??Very High Blood BLOOD SPECIMEN / Unknown Lab Venipuncture / Unknown 05/14/2020 10:18 AM CDT 05/14/2020 10:55 AM CDT Glenny Martin MD LAB - CHEMISTRY ORDERABLES Performing Organization Address [facility]/State/ZIP Co de Phone Number [facility] [address] [place] [phone], [place] [phone] * (ABNORMAL) PHOSPHORUS BLOOD (05/14/2020 10:18 AM CDT) Phosphorus 5.1(H) 2.3 - 4.7 mg/dL 05/14/2020 11:41 AM [facility] Blood BLOOD SPECIMEN / Unknown Lab Venipuncture / Unknown 05/14/2020 10:18 AM CDT 05/14/2020 10:55 AM CDT Glenny Martin MD LAB - CHEMISTRY ORDERABLES Performing Organization Address City/State/[facility] Co de Phone Number [facility] [address] [place] [address], [facility] [phone] * (ABNORMAL) COMPREHENSIVE METABOLIC PANEL (05/14/2020 10:18 AM CDT) BUN 65(H) 7 - 26 mg/dL 05/14/2020 11:41 AM [facility] Creatinine 5.6(H) 0.6 - 1.2 mg/dL 05/14/2020 11:41 AM [facility] Sodium 142 136 - 145 mmol/L 05/14/2020 11:41 AM [facility] Potassium 3.7 3.5 - 4.5 mmol/L 05/14/2020 11:41 AM [facility] Chloride 101 98 - 107 mmol/L 05/14/2020 11:41 AM [facility] CO2 28 22 - 29 mmol/L 05/14/2020 11:41 AM [facility] Glucose 162(H) 70 - 115 mg/dL 05/14/2020 11:41 AM [facility] Calcium 9.0 8.4 - 10.2 mg/dL 05/14/2020 11:41 AM [facility] Protein Total 6.9 6.0 - 8.3 g/dL 05/14/2020 11:41 AM [facility] Albumin 3.7 3.4 - 5.0 g/dL 05/14/2020 11:41 AM [facility] Bilirubin Total 0.7 0.2 - 1.2 mg/dL 05/14/2020 11:41 AM [facility] Alkaline Phosphatase 140 40 - 150 Units/L 05/14/2020 11:41 AM [facility] ALT 43 0 - 55 Units/L 05/14/2020 11:41 AM [facility] AST 29 5 - 34 Units/L 05/14/2020 11:41 AM [facility] Anion Gap 17 8 - 18 05/14/2020 11:41 AM [facility] BUN/Creatinine Ratio 12 7 - 23 05/14/2020 11:41 AM [facility] Osmolality Calculated 316(H) 270 - 300 mOsm/kg 05/14/2020 11:41 AM [facility] Albumin/Globulin Ratio 1.2 1.1 - 2.3 05/14/2020 11:41 AM [facility] eGFR 11(L) >60 mL/min/1.7 3 m2 05/14/2020 11:41 AM [facility] Blood BLOOD SPECIMEN / Unknown Lab Venipuncture / Unknown 05/14/2020 10:18 AM CDT 05/14/2020 10:55 AM T Glenny Martin MD LAB - CHEMISTRY ORDERABLES [facility] [address] [place] [address], [facility] [phone] * (ABNORMAL) CBC W AUTO DIFFERENTIAL (05/14/2020 10:18 AM T) WBC 5.0 3.5 - 10.5 10? 3 /uL 05/14/2020 11:03 AM [facility] RBC 3.45(L) 4.30 - 5.70 10? 6 /uL 05/14/2020 11:03 AM [facility] Hemoglobin 10.7(L) 13.5 - 17.5 g/dL 05/14/2020 11:03 AM [facility] Hematocrit 31.1(L) 39.0 - 50.0 % 05/14/2020 11:03 AM [facility] MCV 90.1 81.0 - 97.0 fL 05/14/2020 11:03 AM [facility] MCH 31.0 28.0 - 34.0 pg 05/14/2020 11:03 AM [facility] MCHC 34.4 32.0 - 36.0 g/dL 05/14/2020 11:03 AM [facility] Platelet Count 232 150 - 400 10? 3 /uL 05/14/2020 11:03 AM [facility] RDW-SD 42.4 36.0 - 50.0 fL 05/14/2020 11:03 AM [facility] RDW-CV 12.9 11.2 - 14.8 % 05/14/2020 11:03 AM [facility] MPV 9.8 9.3 - 12.8 fL 05/14/2020 11:03 AM [facility] nRBC Absolute 0.00 0 10? 3 /uL 05/14/2020 11:03 AM [facility] nRBC Auto 0.0 0 /100 WBC 05/14/2020 11:03 AM [facility] Neutrophils % 54.8 35.0 - 70.0 % 05/14/2020 11:03 AM [facility] Lymphocytes % 31.2 19.7 - 55.1 % 05/14/2020 11:03 AM [facility] Monocytes % 9.4 3.0 - 15.0 % 05/14/2020 11:03 AM [facility] Eosinophils % 3.8 0.0 - 6.0 % 05/14/2020 11:03 AM [facility] Basophil % 0.6 0.0 - 1.5 % 05/14/2020 11:03 AM [facility] Neutrophils Absolute 2.7 1.6 - 7.0 10? 3 /uL 05/14/2020 11:03 AM [facility] Lymphocyte Absolute 1.6 0.8 - 2.9 10? 3 /uL 05/14/2020 11:03 AM [facility] Monocytes Absolute 0.47 0.14 - 0.66 10? 3 /uL 05/14/2020 11:03 AM [facility] Eosinophils Absolute 0.19 0.00 - 0.45 10? 3 /uL 05/14/2020 11:03 AM [facility] Basophils Absolute 0.03 0.00 - 0.06 10? 3 /uL 05/14/2020 11:03 AM [facility] Immature Granulocytes % 0.2 0.0 - 1.0 % 05/14/2020 11:03 AM CDT [facility] Blood BLOOD SPECIMEN / Unknown Lab Venipuncture / Unknown 05/14/2020 10:18 AM CDT 05/14/2020 10:55 AM CDT Glenny Martin MD LAB - HEMATOLOG Y ORDERABLES [facility] [address] [place] [address], [place] [phone] * BLOOD TYPE ABO+ RH PANEL (05/14/2020 10:18 AM CDT) ABO Rh A POS 05/14/2020 12:11 PM CDT [facility] Blood BLOOD SPECIMEN / Unknown Lab Venipuncture / Unknown 05/14/2020 10:18 AM CDT 05/14/2020 11:29 AM CDT Glenny Martin MD LAB - BLOOD BAN K ORDERABLES Performing Organization Address City/[facility]/ZIP Co de Phone Number [facility] [address] [place] [address], [place] [phone] * TYPE + SCREEN PANEL (05/14/2020 10:06 AM CDT) Antibody Screen NEG 0 12:17 PM CDT [facility] ABO Rh A POS 05/14/2020 12:17 PM CDT [facility] Blood Bank BLOOD SPECIMEN / Unknown Lab Venipuncture / Unknown 05/14/2020 10:06 AM CDT 05/14/2020 11:30 AM CDT Glenny Martin MD LAB - BLOOD BAN K ORDERABLES Performing Organization Address City/[facility]/ZIP Co de Phone Number [facility] [address] [place] [address], [place] [phone] * XR PANOREX (05/14/2020 7:35 AM CDT) Anatomical Region Laterality Modality Head Radiographic Toma ging 05/14/2020 7:56 AM CDT Impressions 05/15/2020 7:51 AM CDT IMPRESSION: No periapical abscess identified. Dictated by Kristie Bee MD (vice president of instruction). Dr. CONRAD Champion MD have personally reviewed [...] abscess identified. Dictated by Kristie Bee MD (vice president of instruction). Dr. CONRAD Champion MD have personally reviewed [...] is normal. Dictated by Kristie Bee MD (vice president of instruction). Dr. CONRAD Champion MD have personally reviewed [...] is normal. Dictated by Kristie Bee MD (vice president of instruction). I, Dr. CONRAD GONZALES MD have personally [...] transplant documented in this encounter Care Teams Autistic Teacher Relationship Specialty Start Date End Date Aditya Castro Update Information PCP - General 03/06/19 documented as of this encounter
--- OUTSIDE RECORDS SUMMARY | 2024-09-07 18:58 | XMS_ITS | Encounter Summary ---
Author Organization [facility] Address [address] [facility] [place] [address] Care Team Providers Care Web Merchandiser Name Role Phone Aditya Castro Primary Care Provider Unavailab le Reason for Visit * Reason Comments Establish Care Arthritis and Gout Encounter Details Date Type Department Care Team (Latest Contact Info) Description 03/07/2019 8:30 AM CDT Office Visit [facility] Rheumatology [address] [place] [address] Carlton Delarosa MD [address] [place] [address] Gout, unspecified cause, unspecified chronicity, [...] At the Doctor's Office Building at [address], [address], call [phone] If you need a refill request, have your pharmacy fax a request to [phone] If you need to leave a message for Dr. Norton, you can send her an electronic message via [employer] a voicemail at [phone]. Her office FAX number is [phone]. For after hours emergency only, you can call the [facility] movie shot camera operator at [phone] and ask for the Healthcare Applications Analyst security incident response engineer to be paged. documented in this encounter [...] note. Carlton Delarosa MD, FACP, FAAP, MACR Hay Farmer and Pediatric Rheumatology Professor of Internal Medicine,Pediatrics, and Molecular Immunology [facility] documented in this encounter Consult Notes * Judah Norton MD - 03/07/2019 8:49 AM CDT [facility] Rheumatology Consult H&P PCP: Aditya Castro HPI: 48 year old male with DM, HTN ,HLD , CKD stage IV, and other co morbidities who is seen in clinic today as a referral for gout and arthritis. Patient was previously evaluated by rheumatology at [place] and was told he had gout and [...] No Dry Mouth [x] Yes [] No [place] Pain [x] Yes [] No Oral Ulcers [...] as needed ??? vitamin D, ergocalciferol, (DRISDOL) 26706 units capsule Take 50,000 Units by mouth [...] negative C4 78, C3 140 SHAWN, Chiu, FRANCHISE SALES MANAGER, dsDNA, SSA, SSB negative Trin[place]-1 negative HLA-B27 [...] extension. Vascular calcification is evident. Procedure Note oCnrad Gonzales MD - 04/26/2019 EXAMINATION: 1. Left [...] Region Laterality Modality Pelvis, Lower Extremity Radiogra [facility] Imaging 04/26/2019 1:20 PM CDT [...] 19 units 04/29/2019 9:06 PM CDT [facility] ([facility]) Comment: ?Negative ? <20 ?Weak positive ?20 - 39 ?Moderate positive ??40 - 59 ?Strong positive ?>59 Blood BLOOD SPECIMEN / Unknown Lab Venipuncture / Unknown 04/26/2019 12:42 PM CDT 04/26/2019 1:18 PM CDT Narrative [facility] ([facility]) - 04/29/2019 9:06 PM CDT Performed at: ??01 - [address] ??[id number] Painter Hand: Con Grimaldo MD, Phone: ??[phone] Judah Norton MD LAB - SEROLOGY ORDER [facility] ([facility]) [address] [place] [address] * RHEUMATOID FACTOR BLOOD QUANTITATIVE (04/26/2019 12:42 PM CDT) Rheumatoid Factor <15 <30 IU/mL 04/26/2019 2:34 PM CDT [facility] LABORATORY [facility] Blood BLOOD SPECIMEN / Unknown Lab Venipuncture / Unknown 04/26/2019 12:42 PM CDT 04/26/2019 1:18 PM CDT Judah Norton MD LAB - CHEMISTRY SUSANNAH LEONE Performing Organization Address City/[facility]/ZIP Co de Phone Number [address] [phone] * SS-B (SJOGREN'S) ANTIBODY (04/26/2019 12:42 PM CDT) SS-B LA Antibody 2.8 0.0 - 19.9 Units 04/30/2019 9:45 AM CDT [facility] Comment: JOSE ENRIQUE Antibody Numeric Result Interpretation: ?<20.0 Units: ??Negative ?20.0 - 39.0 Units: ??Weakly Positive ?>39.0 Units: ??Positive ? Blood BLOOD SPECIMEN / Unknown Lab Venipuncture / Unknown 04/26/2019 12:42 PM CDT 04/26/2019 1:19 PM CDT Judah Norton MD LAB - CHEMISTRY SUSANNAH LEONE [address] [phone] * SS-A (SJOGREN'S) ANTIBODY (04/26/2019 12:42 PM CDT) SS-A (Ro) Antibody 2.7 0.0 - 19.9 Units 04/30/2019 9:45 AM CDT [facility] Comment: JOSE ENRIQUE Antibody Numeric Result Interpretation: ?<20.0 Units: ??Negative ?20.0 - 39.0 Units: ??Weakly Positive ?>39.0 Units: ??Positive ? Blood BLOOD SPECIMEN / Unknown Lab Venipuncture / Unknown 04/26/2019 12:42 PM CDT 04/26/2019 1:19 PM CDT Judah Norton MD LAB - CHEMISTRY SUSANNAH LEONE Performing Organization Address [facility] de Phone Number [address] [phone] * SHAWN BLOOD SCREEN W/REFLEX TITER (04/26/2019 12:42 PM CDT) SHAWN Negative 04/27/2019 3:07 PM CDT [facility] ([facility]) Comment: ? Negative ?? <1:80 ? Borderline ??1:80 ? Positive ?? >1:80 Blood BLOOD SPECIMEN / Unknown Lab Venipuncture / Unknown 04/26/2019 12:42 PM CDT 04/26/2019 1:18 PM CDT Narrative [facility] ([facility]) - 04/27/2019 3:07 PM CDT Performed at: ??01 - [facility] [address] [facility], [place], [place] ??[id number] Painter Hand: Mehdi Del Angel PhD, Phone: ??[phone] Judah Norton MD LAB - CHEMISTRY SUSANNAH LEONE Performing Organization Address [facility] Co de Phone Number [facility] ([facility]) [address] [place] [address] * (ABNORMAL) VITAMIN D 25-HYDROXY (04/26/2019 12:42 PM CDT) [facility] Signature Vitamin D, 25 Hydroxy 15.1(L) See comment: ng/mL 04/26/2019 2:25 PM CDT [facility] Comment: The recommendations for [...] Norton MD LAB - CHEMISTRY SUSANNAH LEONE [facility] [address] [phone] * (ABNORMAL) URINALYSIS W/MICROSCOPIC NO CULTURE (04/26/2019 12:[address] [facility]) Color UA Yellow Straw, Yellow, Colorless 04/26/2019 1:31 PM [facility] Clarity UA Slt Cloudy Clear, Slt Cloudy 04/26/2019 1:31 PM [facility] Specific [place] UA 1.013 1.005 - 1.030 04/26/2019 1:31 PM [facility] pH UA 5.0 5.0 - 8.0 pH 04/26/2019 1:31 PM [facility] Protein UA 2+(A) Negative mg/dL 04/26/2019 1:31 PM [facility] Glucose UA 1+(A) Negative mg/dL 04/26/2019 1:31 PM [facility] Ketone UA Negative Negative mg/dL 04/26/2019 1:31 PM [facility] Bilirubin UA Negative Negative mg/dL 04/26/2019 1:31 PM [facility] Blood UA Negative Negative 04/26/2019 1:31 PM [facility] Nitrite UA Negative Negative 04/26/2019 1:31 PM [facility] Leukocyte Esterase Negative Negative 04/26/2019 1:31 PM [facility] Urobilinogen UA Negative Negative mg/dL 04/26/2019 1:31 PM [facility] RBC UA 0-2 None Seen, 0-2, 3-5 /HPF 04/26/2019 1:31 PM [facility] WBC UA 0-5 None Seen, 0-5 /HPF 04/26/2019 1:31 PM [facility] Squamous Epithelial Cells UA 0-2 None Seen, 0-2 /HPF 04/26/2019 1:31 PM [facility] Mucus UA 1+ None, 1+ /LPF 04/26/2019 1:31 PM [facility] Hyaline Casts UA 11-20(A) None Seen, 0-2 /LPF 04/26/2019 1:31 PM [facility] Urine URINE SPECIMEN OBTAINED BY CLEAN CATCH PROCEDURE / Unknown Collection / Unknown 04/26/2019 12:42 PM CDT 04/26/2019 1:18 PM CDT Narrative [facility] - 04/26/2019 1:31 PM CDT Judah Norton MD LAB - URINALYSIS ORD ERABLES Performing Organization Address [facility]/ZIP Co de Phone Number [address] [phone] * (ABNORMAL) ERYTHROCYTE SEDIMENTATION RATE (04/26/2019 12:42 PM CDT) Erythrocyte Sedimentation Rate Westergren 34(H) 0 - 20 MM/HR 04/26/2019 1:31 PM CDT [facility] Blood BLOOD SPECIMEN / Unknown Lab Venipuncture / Unknown 04/26/2019 12:42 PM CDT 04/26/2019 1:19 PM CDT Judah Norton MD LAB - HEMATOLOGY ORD ERABLES Performing Organization Address [facility]/ZIP Co de Phone Number [address] [phone] * C-REACTIVE PROTEIN (04/26/2019 12:42 PM CDT) C-Reactive Protein <0.5 <=0.5 mg/dL 04/26/2019 2:21 PM CDT [facility] Blood BLOOD SPECIMEN / Unknown Lab Venipuncture / Unknown 04/26/2019 12:42 PM CDT 04/26/2019 1:19 PM CDT Judah Norton MD LAB - CHEMISTRY ORDE RABLES Performing Organization Address City/[facility]/[place] [address], [facility] [phone] * (ABNORMAL) COMPREHENSIVE METABOLIC PANEL (04/26/2019 12:42 PM CDT) BUN 72(H) 7 - 26 mg/dL 04/26/2019 1:43 PM [facility] Creatinine 4.9(H) 0.6 - 1.2 mg/dL 04/26/2019 1:43 PM [facility] Sodium 138 136 - 145 mmol/L 04/26/2019 1:43 PM [facility] Potassium 4.1 3.5 - 4.5 mmol/L 04/26/2019 1:43 PM [facility] Chloride 101 98 - 107 mmol/L 04/26/2019 1:43 PM [facility] CO2 22 22 - 29 mmol/L 04/26/2019 1:43 PM [facility] Glucose 227(H) 70 - 115 mg/dL 04/26/2019 1:43 PM [facility] Calcium 9.2 8.4 - 10.2 mg/dL 04/26/2019 1:43 PM [facility] Protein Total 6.9 6.0 - 8.3 g/dL 04/26/2019 1:43 PM [facility] Albumin 3.6 3.4 - 5.0 g/dL 04/26/2019 1:43 PM [facility] Bilirubin Total 0.4 0.2 - 1.2 mg/dL 04/26/2019 1:43 PM [facility] Alkaline Phosphatase 83 40 - 150 Units/L 04/26/2019 1:43 PM [facility] ALT 32 0 - 55 Units/L 04/26/2019 1:43 PM [facility] AST 30 5 - 34 Units/L 04/26/2019 1:43 PM [facility] Anion Gap 19(H) 8 - 18 04/26/2019 1:43 PM [facility] BUN/Creatinine Ratio 15 7 - 23 04/26/2019 1:43 PM [facility] Osmolality Calculated 314(H) 270 - 300 mOsm/kg 04/26/2019 1:43 PM [facility] Albumin/Globulin Ratio 1.1 1.1 - 2.3 04/26/2019 1:43 PM [facility] eGFR 13(L) >60 mL/min/1.7 3 m2 04/26/2019 1:43 PM [facility] Blood BLOOD SPECIMEN / Unknown Lab Venipuncture / Unknown 04/26/2019 12:42 PM CDT 04/26/2019 1:19 PM CDT Judah Norton MD LAB - CHEMISTRY SUSANNAH Roman Organization Address City/State/ZIP Co de Phone Number [facility] [address] [place] [address] * (ABNORMAL) CBC WITH DIFFERENTIAL (04/26/2019 12:42 PM CDT) WBC 4.9 3.5 - 10.5 10? 3 /uL 04/26/2019 1:22 PM [facility] RBC 3.40(L) 4.30 - 5.70 10? 6 /uL 04/26/2019 1:22 PM [facility] Hemoglobin 10.0(L) 13.5 - 17.5 g/dL 04/26/2019 1:22 PM [facility] Hematocrit 29.5(L) 39.0 - 50.0 % 04/26/2019 1:22 PM [facility] MCV 86.8 81.0 - 97.0 fL 04/26/2019 1:22 PM [facility] MCH 29.4 28.0 - 34.0 pg 04/26/2019 1:22 PM [facility] MCHC 33.9 32.0 - 36.0 g/dL 04/26/2019 1:22 PM [facility] Platelet Count 243 150 - 400 10? 3 /uL 04/26/2019 1:22 PM [facility] RDW-SD 39.9 36.0 - 50.0 fL 04/26/2019 1:22 PM [facility] RDW-CV 12.5 11.2 - 14.8 % 04/26/2019 1:22 PM [facility] MPV 9.7 9.3 - 12.8 fL 04/26/2019 1:22 PM [facility] nRBC Absolute 0.00 0 10? 3 /uL 04/26/2019 1:22 PM [facility] nRBC Auto 0.0 0 /100 WBC 04/26/2019 1:22 PM [facility] Neutrophils % 57.8 35.0 - 70.0 % 04/26/2019 1:22 PM [facility] Lymphocytes % 27.1 19.7 - 55.1 % 04/26/2019 1:22 PM [facility] Monocytes % 11.2 3.0 - 15.0 % 04/26/2019 1:22 PM [facility] Eosinophils % 2.9 0.0 - 6.0 % 04/26/2019 1:22 PM [facility] Basophil % 0.6 0.0 - 1.5 % 04/26/2019 1:22 PM [facility] Neutrophils Absolute 2.8 1.6 - 7.0 10? 3 /uL 04/26/2019 1:22 PM [facility] Lymphocyte Absolute 1.3 0.8 - 2.9 10? 3 /uL 04/26/2019 1:22 PM [facility] Monocytes Absolute 0.55 0.14 - 0.66 10? 3 /uL 04/26/2019 1:22 PM [facility] Eosinophils Absolute 0.14 0.00 - 0.45 10? 3 /uL 04/26/2019 1:22 PM [facility] Basophils Absolute 0.03 0.00 - 0.06 10? 3 /uL 04/26/2019 1:22 PM [facility] Immature Granulocytes % 0.4 0.0 - 1.0 % 04/26/2019 1:22 PM [facility] Blood BLOOD SPECIMEN / Unknown Lab Venipuncture / Unknown 04/26/2019 12:42 PM CDT 04/26/2019 1:19 PM CDT Judah Norton MD LAB - HEMATOLOGY ORD ERABLES [facility] [address] [phone] * (ABNORMAL) CK BLOOD (04/26/2019 12:42 PM CDT) CK Total 280(H) 30 - 200 Units/L 04/26/2019 1:43 PM [facility] Blood BLOOD SPECIMEN / Unknown Lab Venipuncture / Unknown 04/26/2019 12:42 PM CDT 04/26/2019 1:19 PM CDT Judah Norton MD LAB - CHEMISTRY SUSANNAH LEONE [address] [phone] * (ABNORMAL) LDH BLOOD (04/26/2019 12:42 PM CDT) LDH Total 268(H) 125 - 243 Units/L 04/26/2019 1:43 PM CDT [facility] Blood BLOOD SPECIMEN / Unknown Lab Venipuncture / Unknown 04/26/2019 12:42 PM CDT 04/26/2019 1:19 PM CDT Judah Norton MD LAB - CHEMISTRY SUSANNAH LEONE Performing Organization Address [facility]/ZIP Co de Phone Number [address] [phone] * ALDOLASE (04/26/2019 12:42 PM CDT) Aldolase 6.9 3.3 - 10.3 U/L 04/29/2019 3:08 PM CDT [facility] ([facility]) Blood BLOOD SPECIMEN / Unknown Lab Venipuncture / Unknown 04/26/2019 12:42 PM CDT 04/26/2019 1:18 PM CDT Narrative [facility] ([facility]) - 04/29/2019 3:08 PM CDT Performed at: ??01 - [facility] [address] [place], [place] ??[id number] Painter Hand: Mehdi Del Angel PhD, Phone: ??[phone] Judah Norton MD LAB - CHEMISTRY SUSANNAH LEONE Performing Organization Address City/[facility]/ZIP Co de Phone Number [facility] ([facility]) [address] [place] [address], [facility] * URIC ACID BLOOD (04/26/2019 12:42 PM CDT) Uric Acid 4.4 2.6 - 7.2 mg/dL 04/26/2019 2:13 PM CDT [facility] Blood BLOOD SPECIMEN / Unknown Lab Venipuncture / Unknown 04/26/2019 12:42 PM CDT 04/26/2019 1:19 PM CDT Judah Norton MD LAB - CHEMISTRY SUSANNAH LEONE [facility] Organization Address City/State/ZIP Co de Phone Number [address] [phone] documented in this encounter Visit Diagnoses Diagnosis Gout, unspecified cause, unspecified chronicity, unspecified site- Primary Sic[place], unspecified type (HCC) Osteoarthritis, unspecified osteoarthritis type, unspecified site documented in this encounter Care Teams Web Merchandiser Relationship Specialty Start Date End Date Aditya Castro Update Information PCP - General 03/06/19 documented as of this encounter
--- OUTSIDE RECORDS SUMMARY | 2024-09-07 18:58 | XMS_ITS | Encounter Summary ---
Author Organization [facility] Address [address] [facility] [place] [address] Care Team Providers Care Hot Repairman Name Role Phone Aditya Castro Primary Care Provider Unavailab le Encounter Details Date Type Department Care Team (Latest Contact Info) Description 04/26/2019 12:54 PM CDT - 04/26/2019 11:59 PM CDT Hospital Encounter [facility] DIAGNOSTIC RAD OP [address] [place] [phone] Judah Norton MD [address] [place] [address] Discharge Disposition: Home or Self Care Social [...] fluticasone propionate (FLONASE) 50 MCG/ACT nasal spray Harrison 1 spray into each nostril once daily [...] test strip 04/17/2019 vitamin D, ergocalciferol, (DRISDOL) 62047 units capsule Take 50,000 Units by mouth [...] Region Laterality Modality Pelvis, Lower Extremity Radiogra [facility] Imaging 04/26/2019 1:20 PM CDT Impressions [...] Dictated by Ash Moreira MD (resident). Dr. CNORAD Champion MD have personally reviewed and interpreted [...] on filedocumented in this encounter Care Teams Hot Repairman Relationship Specialty Start Date End Date Aditya Castro Update Information PCP - General 03/06/19 documented as of this encounter
--- OUTSIDE RECORDS SUMMARY | 2024-09-07 18:58 | XMS_ITS | Encounter Summary ---
Author Organization [facility] Address [address] [facility] [place] [address] Care Team Providers Care Vehicle Modification Technician Name Role Phone Aditya Castro Primary Care Provider Unavailab le Encounter Details Date Type Department Care Team (Late st Contact Info) Description 04/27/2019 Orders Only [facility] [address] [place] [address] Judah Norton MD [address] [phone] Social History Tobacco Use Types Packs/Day Years [...] approximately 13% higher for people identified as -Lebanese. eGFR by MDRD 14(L) > OR = [...] Lbs [address] [facility] Comment: Test Performed at: [facility] [address] [place], [place] ??[id number] ANA REYES DO,MPH 04/27/2019 9:17 AM CDT 04/27/2019 9:19 AM CDT Judah Norton MD LAB - URINE CHEMISTR Y ORDERABLES Performing Organization Address City/State/[facility] Co de Phone Number [facility] [address] [place] [address] documented in this encounter Visit Diagnoses Not on filedocumented in this encounter Care Teams Vehicle Modification Technician Relationship Specialty Start Date End Date Aditya Castro Update Information PCP - General 03/06/19 documented as of this encounter
--- OUTSIDE RECORDS SUMMARY | 2024-09-07 18:58 | XMS_ITS ---
Author Organization [facility] Address [address] [facility] [place] [address] Care Team Providers Care Saturator Operator Name Role Phone Aditya Castro Primary Care Provider Unavailab le Transplant Episode Kidney Candidate [facility] ([place], [place]) - MOS Evaluation began on 03/20/2020 Marked as Ineligible on 07/15/2020 Reason: Weight Issues Kidney CoordinatorAnali Merino RN Phone: N/A Fax: N/A Email: N/A Scores Score Value Updated Exceptions/Reas ons CPRA Not available EPTS (Calc) 39 09/07/2024 [place] Organ Diagnosis Organ 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
--- OUTSIDE RECORDS SUMMARY | 2024-09-07 18:58 | XMS_ITS | Encounter Summary ---
Author Organization [facility] Address [address] [facility] [place] [address] Care Team Providers Care Music Instructor Name Role Phone Matthew Aditya Ellison Primary Care Provider Unavailab le Reason for Visit * Reason Comments Gout pain-low back, hips, knees, shoulders, hands and feet Encounter Details Date Type Department Care Team (Late st Contact Info) Description 04/29/2019 12:30 PM CDT Office Visit [facility] Rheumatology [address] [place] [address] Judah Norton MD [address] [place] [address] Gout, unspecified cause, unspecified chronicity, unspecified site [...] desires. Carlton Delarosa MD, FACP, FAAP, MACR Chief Security Officer and Pediatric Rheumatology Professor of Internal Medicine,Pediatrics, and Molecular Immunology [facility] documented in this encounter Plan of Treatment Not on file documented as of this encounter Visit Diagnoses Diagnosis Gout, unspecified cause, unspecified chronicity, unspecified site- Primary documented in this encounter Care Teams Music Instructor Relationship Specialty Start Date End Date Aditya Castro Update Information PCP - General 03/06/19 documented as of this encounter
--- OUTSIDE RECORDS SUMMARY | 2024-09-07 18:58 | XMS_ITS | Encounter Summary ---
Author Organization [facility] Address [address] [facility] [place] [address] Care Team Providers Care Cane Loader Name Role Phone CastroNancy josueAditya K Primary Care Provider Unavailab le Reason for Visit * Reason Comments Establish Care New patient, FBSC- s cattered moles, dry skin forehead, side of nose(irritating), legs, hands. Dark areas on lower legs, no symptoms Encounter Details Date Type Department Care Team (Late st Contact Info) Description 04/11/2019 1:20 PM CDT Office Visit [facility] [address] [place] [address] Finn Kramer MD [address] [place] [address] Other seborrheic dermatitis (Primary Dx); Venous stasis [...] stronger ones than this. We often recommend [employer] at [facility] or online at [email or web address] They can also be obtained from [facility] CARE INSTRUCTIONS Try to rest and raise [...] device. Many people find good deals on [employer] Akira device: [address] [place] [address] P: [phone] F: [phone] M-F 8:30am-5:30pm Sat 10am-3pm [address] [address] P: [phone] F: [phone] M-F 8:30am-5:30pm Closed Monday [place] [address] [place] [address] P: [phone] F: [phone] M-F 8:30am-5:30pm Closed Monday documented in this [...] x yrs. OTC tx. Itching occ. PE: Cowpens scaly patches b/l eyebrows, NLF, post auricular. [...] trunk documented in this encounter Care Teams Cane Loader Relationship Specialty Start Date End Date Aditya Castro Update Information PCP - General 03/06/19 documented as of this encounter
--- OUTSIDE RECORDS SUMMARY | 2024-09-07 18:58 | XMS_ITS | Encounter Summary ---
Author Organization [facility] Address [address] [facility] [place] [address] Care Team Providers Care Geotechnical Engineer Name Role Phone Aditya Castro Primary Care Provider Unavailab le Reason for Visit * Reason Comments Kidney Transplant Evaluation Encounter Details Date Type Department Care Team (Late st Contact Info) Description 02/05/2020 Telephone [facility] TRANSPLANT [address] [place] [phone] Gracie Chambers, RN Kidney Transplant Evaluation Social [...] on filedocumented in this encounter Care Teams Geotechnical Engineer Relationship Specialty Start Date End Date Aditya Castro Update Information PCP - General 03/06/19 documented as of this encounter
--- OUTSIDE RECORDS SUMMARY | 2024-09-07 18:59 | XMS_ITS | Encounter Summary ---
Author Organization [facility] Address [address] [address] Phone Care Team Providers Care Waiter/Waitress Bar Name Role Phone Unavailable Primary Care Provider Unavailabl e Reason for Visit * Reason Comments Med Refill Encounter Details Date Type Department Care Team (Late st Contact Info) Description 12/19/2020 Refill [facility] [address] [place] [phone] Leandro Reyes MD [address] [address] Social History Tobacco Use Types [...]
--- OUTSIDE RECORDS SUMMARY | 2024-09-07 18:59 | XMS_ITS ---
Author Organization [facility] Address [address] [facility] [place] [address] Care Team Providers Care Tankage Supervisor Name Role Phone Aditya Castro Primary Care Provider Unavailab le Transplant Episode Pancreas Candidate [facility] ([place], [place]) - [facility]L Referred on 12/31/2019 Marked as Ineligible on 02/04/2020 Reason: Weight Issues Pancreas CoordinatorGracie Chambers RN Phone: N/A Fax: N/A Email: N/A Care Team Name Role Phone Fax Email Gracie Chambers RN Pancreas Coordinator N/A N/A N/A Leandro Reyes MD Referring Physician N/A N/A N/A Events Pre-Transplant Referred: 12/31/2019 Dialysis History Dialysis History Start End Type Comments Center 10/16/2019 Peritoneal [facility] Dialysis Center Information Center Phone Fax Address [facility] [phone] [address]
--- OUTSIDE RECORDS SUMMARY | 2024-09-07 18:59 | XMS_ITS | Encounter Summary ---
Author Organization [facility] Luana utimildred Address [address] [address] Phone Care Team Providers Care Network Administrator Name Role Phone Unavailable Primary Care Provider Unavailabl e Reason for Visit * Reason Comments Med Refill Encounter Details Date Type Department Care Team (Late st Contact Info) Description 11/19/2020 Refill [facility] [address] [place] [address] Leandro Reyes MD [address] [address] Social History Tobacco Use Types [...]
--- OUTSIDE RECORDS SUMMARY | 2024-09-07 18:59 | XMS_ITS | Encounter Summary ---
Author Organization [facility] Luana utimildred Address [address], [place] [address] Phone Care Team Providers Care Cloth Presser Name Role Phone Unavailable Primary Care Provider Unavailabl e Reason for Visit * Reason Comments Med Refill Encounter Details Date Type Department Care Team (Late st Contact Info) Description 12/23/2021 Refill [facility] [address] [place] [address] Arabella Lo, DEPARTMENT SPECIALIST [address] [address] Social History Tobacco Use Types Packs/Day Years [...]
--- OUTSIDE RECORDS SUMMARY | 2024-09-07 18:59 | XMS_ITS | Encounter Summary ---
Author Organization [facility] Luana utimildred Address [address], [place] [address] Phone Care Team Providers Care Manufacturing Plant Manager Name Role Phone Unavailable Primary Care Provider Unavailabl e Reason for Visit * Reason Comments CKD Encounter Details Date Type Department Care Team (Latest Contact Info) Description 10/01/2019 2:40 PM HUMAN RESOURCES ADMIN Office Visit [facility] [address] [place] [address] Ricardo Banuelos MD [address] [address] Stage 5 chronic kidney disease [...] Comments Blood Pressure 165/71 10/01/2019 1:51 PM HUMAN RESOURCES ADMIN Pulse 57 10/01/2019 1:51 PM HUMAN RESOURCES ADMIN Temperature - - Respiratory Rate - - Oxygen Saturation - - Inhaled Oxygen Concentration - - Weight 116 kg (256 lb) 10/01/2019 1:51 PM HUMAN RESOURCES ADMIN Height 177.8 cm (5' 10 ) 10/01/2019 1:51 PM HUMAN RESOURCES ADMIN Body Mass Index 36.73 10/01/2019 1:51 PM HUMAN RESOURCES ADMIN documented in this encounter Progress Notes * [...] mg by mouth. ??? Cholecalciferol (VITAMIN D3) 52594 units capsule 1 tab by mouth once [...] this visit: Stage 5 chronic kidney disease ([facility]) - Referral to Interventional Nephrology; Future - CBC (includes Platelets / NO Differential); Future - Renal Function Panel (RFP); Future Type 2 diabetes mellitus with diabetic nephropathy ([facility]) Secondary hyperparathyroidism ([facility]) - PTH Intact w/o Calcium, Serum; Future Anemia in chronic kidney disease - CBC (includes Platelets / NO Differential); Future - Iron and TIBC, Serum; Future - Ferritin, Serum; Future Obstructive sleep apnea Hypertensive end stage renal disease ([facility]) Other orders - furosemide (LASIX) 80 MG [...] Lab Routine Stage 5 chronic kidney disease ([facility]) Anemia in chronic kidney disease Expected: 03/31/2020, Expires: 03/31/2020 PTH Intact w/o Calcium, Serum Lab Routine Secondary hyperparathyroidism ([facility]) Expected: 03/31/2020, Expires: 03/31/2020 Renal Function Panel (RFP) Lab Routine Stage 5 chronic kidney disease ([facility]) Expected: 03/31/2020, Expires: 10/01/2020 Iron and TIBC, Serum Lab Routine Anemia in chronic kidney disease 1 Occurrences starting 10/01/2019 until 03/31/2020 Ferritin, Serum Lab Routine Anemia in chronic kidney disease 1 Occurrences starting 10/01/2019 until 03/31/2020 documented as of this encounter Visit Diagnoses Diagnosis Stage 5 chronic kidney disease ([facility])- Primary Type 2 diabetes mellitus with diabetic nephropathy ([facility]) Secondary hyperparathyroidism ([facility]) Anemia in chronic kidney disease Obstructive sleep apnea Hypertensive end stage renal disease ([facility]) documented in this encounter
--- OUTSIDE RECORDS SUMMARY | 2024-09-07 18:59 | XMS_ITS | Encounter Summary ---
Author Organization [facility] Luana utimildred Address [address] [address] Phone Care Team Providers Care Cdl Truck Driver Name Role Phone Unavailable Primary Care Provider Unavailabl e Reason for Visit * Reason Comments Med Refill Encounter Details Date Type Department Care Team (Late st Contact Info) Description 12/25/2020 Refill [facility] [address] [place] [address] Leandro Reyes MD [address] [address] Social History Tobacco Use Types [...]
--- OUTSIDE RECORDS SUMMARY | 2024-09-07 18:59 | XMS_ITS | Encounter Summary ---
Author Organization [facility] Luana utimildred Address [address], [place] [address] Phone Care Team Providers Care Account Development Specialist Name Role Phone Unavailable Primary Care Provider Unavailabl e Reason for Visit * Reason Comments Med Refill Encounter Details Date Type Department Care Team (Late st Contact Info) Description 10/08/2019 Refill [facility] [address] [address] Leandro Reyes MD [address] [address] Social History Tobacco Use Types [...]
--- OUTSIDE RECORDS SUMMARY | 2024-09-07 18:59 | XMS_ITS | Encounter Summary ---
Author Organization [facility] Physician Luana utimildred Address [address] [address] Phone Care Team Providers Care Meter Installer And Remover Name Role Phone Unavailable Primary Care Provider Unavailabl e Reason for Visit * Reason Comments Med Refill Encounter Details Date Type Department Care Team (Late st Contact Info) Description 02/24/2020 Refill [facility] [address] [address] Leandro Reyes MD [address] [address] Social History Tobacco Use Types [...]
--- OUTSIDE RECORDS SUMMARY | 2024-09-07 18:59 | XMS_ITS | Encounter Summary ---
Author Organization [facility] Luana utimildred Address [address] [address] Phone Care Team Providers Care Scrip Clerk Name Role Phone Unavailable Primary Care Provider Unavailabl e Reason for Visit * Reason Comments Med Refill Encounter Details Date Type Department Care Team (Late st Contact Info) Description 11/14/2019 Refill [facility] [address] [address] Leandro Reyes MD [address] [address] Social History Tobacco Use [...]
--- OUTSIDE RECORDS SUMMARY | 2024-09-07 18:59 | XMS_ITS | Clinical Summary ---
Author Organization [facility] Physician Luana marquez Address [address] [place] [address] Phone Care Team Providers Care Crusher Screen Repairer Name Role Phone Unavailable Primary Care Provider [...] daily 0 12/27/2017 Active Cholecalciferol (VITAMIN D3) 10522 units capsule 1 tab by mouth once [...]
--- OUTSIDE RECORDS SUMMARY | 2024-09-07 18:59 | XMS_ITS | Encounter Summary ---
Author Organization [facility] Luana utimildred Address [address], [place] [address] Phone Care Team Providers Care Aircraft Ordnance Systems Mechanic Name Role Phone Unavailable Primary Care Provider Unavailabl e Reason for Visit * Reason Comments CKD Encounter Details Date Type Department Care Team (Latest Contact Info) Description 10/29/2019 10:20 AM CDT Office Visit [facility] [address] [place] [address] Ricardo Reyes MD [address] [address] Stage 5 chronic kidney disease [...] mg by mouth. ??? Cholecalciferol (VITAMIN D3) 76401 units capsule 1 tab by mouth once [...] this visit: Stage 5 chronic kidney disease ([facility]) Type 2 diabetes mellitus with diabetic nephropathy ([facility]) Secondary hyperparathyroidism ([facility]) Hypertensive end stage renal disease ([facility]) Obstructive sleep apnea Anemia in chronic kidney [...] Diagnoses Diagnosis Stage 5 chronic kidney disease ([facility] Primary Type 2 diabetes mellitus with diabetic nephropathy (CMS-HCC) Secondary hyperparathyroidism (CMS-HCC) Hypertensive end stage renal disease ([facility]) Obstructive sleep apnea Anemia in chronic kidney disease documented in this encounter
--- OUTSIDE RECORDS SUMMARY | 2024-09-07 19:00 | XMS_ITS | Encounter Summary ---
Author Organization [facility] Luana utimildred Address [address] [place] [address] Phone Care Team Providers Care Customer Complaint Service Supervisor Name Role Phone Unavailable Primary Care Provider Unavailabl e Encounter Details Date Type Department Care Team (Late st Contact Info) Description 11/08/2018 1:00 PM CDT Office Visit [facility] 5003 [facility] 1 [place] [address] Arabella Lo NP [address] [address] Chronic kidney disease stage 4 [...] discussed this at a past hospitalization at [place]. Patient is to notify office if any changes in health take place prior to follow up with hydrometeorologist. This includes any changes in urinary habits, shortness of breath, loss of appetite, weight gain or loss, or any edema. Total time spent: 55 minutes documented in this encounter Plan of Treatment Not on file documented as of this encounter Visit Diagnoses Diagnosis Chronic kidney disease stage 4 (CMS-HCC)- Primary documented in this encounter
--- OUTSIDE RECORDS SUMMARY | 2024-09-07 19:00 | XMS_ITS | Encounter Summary ---
Author Organization [facility] Physician Luana utimildred Address [address] [place] [address] Phone Care Team Providers Care Clinical Technician Name Role Phone Unavailable Primary Care Provider Unavailabl e Reason for Visit * Reason Onset Date Comments Med Refill 02/18/2019 Encounter Details Date Type Department Care Team (Late st Contact Info) Description 02/18/2019 Refill [facility] [address] [facility] [place] [address] Anabel Kingsley RN Social History Tobacco Use [...]
--- OUTSIDE RECORDS SUMMARY | 2024-09-07 19:00 | XMS_ITS | Encounter Summary ---
Author Organization [facility] Luana utimildred Address [address], [place] [address] Phone Care Team Providers Care Frontload Driver Name Role Phone Unavailable Primary Care Provider Unavailabl e Reason for Visit * Reason Comments Med Refill Encounter Details Date Type Department Care Team (Late st Contact Info) Description 07/04/2019 Refill [facility] [address] [address] Leandro Reyes MD [address] [address] Social History Tobacco Use Types [...]
--- OUTSIDE RECORDS SUMMARY | 2024-09-07 19:00 | XMS_ITS | Encounter Summary ---
Author Organization [facility]ka Physician Luana utimildred Address [address] [place] [address] Phone Care Team Providers Care Smash Hand Name Role Phone Unavailable Primary Care Provider Unavailabl e Reason for Visit * Reason Comments Med Refill Encounter Details Date Type Department Care Team (Late st Contact Info) Description 01/25/2019 Refill [facility] [address] [facility] 1 [place] [address] Leandro Reyes MD [address] [address] Social History Tobacco Use Types [...]
--- OUTSIDE RECORDS SUMMARY | 2024-09-07 19:00 | XMS_ITS | Encounter Summary ---
Author Organization [facility] Physician Luana utimildred Address [address], [place] [address] Phone Care Team Providers Care Architectural Project Manager Name Role Phone Unavailable Primary Care Provider Unavailabl e Reason for Visit * Reason Comments CKD Encounter Details Date Type Department Care Team (Late st Contact Info) Description 04/02/2019 1:40 PM CDT Office Visit [facility] [address] [address] Leandro Reyes MD 5003 [facility] 1 [place] [address] Social History Tobacco Use Types [...]
--- OUTSIDE RECORDS SUMMARY | 2024-09-07 19:00 | XMS_ITS | Encounter Summary ---
Author Organization [facility] Physician Luana utimildred Address [address] [place] [address] Phone Care Team Providers Care Laborer Livestock Name Role Phone Unavailable Primary Care Provider Unavailabl e Reason for Visit * Reason Comments CKD Encounter Details Date Type Department Care Team ([facility] st Contact Info) Description 02/12/2019 1:00 PM CDT Office Visit [facility] [address] [place] [address] Leandro Reyes MD [address] [id number] Social History Tobacco Use Types Packs/Day Years [...]
--- OUTSIDE RECORDS SUMMARY | 2024-09-07 19:00 | XMS_ITS | Encounter Summary ---
Author Organization [facility] Physician Luana utimildred Address [address], [place] [address] Phone Care Team Providers Care Iron Miner Blasting Name Role Phone Unavailable Primary Care Provider Unavailabl e Reason for Visit * Reason Comments Med Refill Encounter Details Date Type Department Care Team (Late st Contact Info) Description 02/13/2019 Refill [facility] [address] [address] Leandro Reyes MD [address] [address] Social History Tobacco Use Types [...]
--- OUTSIDE RECORDS SUMMARY | 2024-09-07 19:00 | XMS_ITS | Encounter Summary ---
Author Organization [facility] Physician Luana utimildred Address [address] [place] [address] Phone Care Team Providers Care Telephone Information Supervisor Name Role Phone Unavailable Primary Care Provider Unavailabl e Encounter Details Date Type Department Care Team (Late st Contact Info) Description 09/18/2019 Telephone [facility] 5003 [facility] 1 [place] [address] Leandro Reyes MD 5003 [facility] 1 [place] [address] Social History Tobacco Use Types [...] Sep 25 @ 10 am at his [facility]. documented in this encounter Plan of Treatment Not on file documented as of this encounter Visit Diagnoses Not on filedocumented in this encounter
--- OUTSIDE RECORDS SUMMARY | 2024-09-07 19:00 | XMS_ITS | Encounter Summary ---
Author Organization [facility] Physician Luana utimildred Address [address] [place] [address] Phone Care Team Providers Care Want Ad Clerk Name Role Phone Unavailable Primary Care Provider Unavailabl e Reason for Visit * Reason Onset Date Comments Med Refill 01/25/2019 Encounter Details Date Type Department Care Team (Late st Contact Info) Description 01/25/2019 Refill [facility] [address] [facility], [address] [place] [address] Anabel Kingsley RN Social History Tobacco Use [...]
--- OUTSIDE RECORDS SUMMARY | 2024-09-07 19:00 | XMS_ITS | Encounter Summary ---
Author Organization [facility] Physician Luana utimildred Address [address] [place] [address] Phone Care Team Providers Care Courtesy Van Driver Name Role Phone Unavailable Primary Care Provider Unavailabl e Reason for Visit * Reason Onset Date Comments Med Refill 02/13/2019 Encounter Details Date Type Department Care Team (Late st Contact Info) Description 02/13/2019 Refill [facility] [address] [facility], [address] [place] [address] Anabel Kingsley RN Social History Tobacco Use [...]
--- OUTSIDE RECORDS SUMMARY | 2024-09-07 19:05 | XMS_ITS | Encounter Summary ---
Author Organization [facility] Address [address] [place] [address] Care Team Providers Care Eyelet Punch Operator Name Role Phone Aditya Castro MD Primary Care Provider [phone] Encounter Details Date Type Department Care Team [...] at Not on file Legal Sex Male 11:42 AM CDT Gender Identity Not on file Sexual Orientation Not on file documented as of this encounter Plan of Treatment Not on file documented as of this encounter Visit Diagnoses Not on filedocumented in this encounter Care Teams Eyelet Punch Operator Relationship Specialty Start Date End Date Aditya Castro MD PCP - General Student in an Organized Health Care Education/Training Program 09/11/18 documented as of this encounter
--- OUTSIDE RECORDS SUMMARY | 2024-09-07 19:05 | XMS_ITS | Encounter Summary ---
Author Organization [facility] Address [address] [place] [address] Care Team Providers Care Real Estate Agent/Broker Name Role Phone Aditya Castro MD Primary Care Provider [phone] Encounter Details Date Type Department Care Team [...] on filedocumented in this encounter Care Teams Real Estate Agent/Broker Relationship Specialty Start Date End Date Aditya Castro MD PCP - General Student in an Organized Health Care Education/Training Program 09/11/18 documented as of this encounter
--- OUTSIDE RECORDS SUMMARY | 2024-09-07 19:05 | XMS_ITS | Encounter Summary ---
Author Organization [facility] Address [address] [place] [address] Care Team Providers Care Property Economist Name Role Phone Aditya Castro MD Primary Care Provider [phone] Reason for Visit * Reason Onset Date Comments Medication Refill 09/23/2022 Encounter Details Date Type Department Care Team (Late st Contact Info) Description 09/23/[address] [facility] - [place] [address] [facility] 200 [place] [address] Fernando Schmid MD [address] [facility] [address] [place] [address] Social History Tobacco Use Types [...] Coronavirus/COVID-19? No / Unsure 09/21/2022 11:32 AM PLATE TAKE OUT WORKER documented as of this encounter Plan of Treatment Not on file documented as of this encounter Visit Diagnoses Not on filedocumented in this encounter Care Teams Property Economist Relationship Specialty Start Date End Date Aditya Castro MD PCP - General Student in an Organized Health Care Education/Training Program 09/11/18 documented as of this encounter
--- OUTSIDE RECORDS SUMMARY | 2024-09-07 19:05 | XMS_ITS | Encounter Summary ---
Author Organization [facility] Address [address] [place] [address] Care Team Providers Care Ham Curer Name Role Phone Aditya Castro MD Primary Care Provider [phone] Encounter Details Date Type Department Care Team [...] on filedocumented in this encounter Care Teams Ham Curer Relationship Specialty Start Date End Date Aditya Castro MD PCP - General Student in an Organized Health Care Education/Training Program 09/11/18 documented as of this encounter
--- OUTSIDE RECORDS SUMMARY | 2024-09-07 19:05 | XMS_ITS | Encounter Summary ---
Author Organization [facility] Address [address] [place] [address] Care Team Providers Care Plastics Engineering Teacher Name Role Phone Aditya Castro MD Primary Care Provider [phone] Encounter Details Date Type Department Care Team (Late st Contact Info) Description 02/13/2023 Orders Only [facility] Oncology and Hematology - [place] [address] [facility] 200 [place] [address] Fernando Schmid MD 2[address] [facility] [address] [place] [address] Social History Tobacco Use Types [...] WITHOUT DIFFERENTIAL (02/10/2023 10:54 AM CDT) Blood us Fernando Schmid MD HEMATOLOGY ORDERABLES Final Res ult * BASIC METABOLIC PANEL (02/10/2023 10:53 AM CDT) Blood Fernando Schmid MD CHEMISTRY ORDERABLES Final Resu lt documented in this encounter Visit Diagnoses Not on filedocumented in this encounter Care Teams Plastics Engineering Teacher Relationship Specialty Start Date End Date Aditya Castro MD PCP - General Student in an Organized Health Care Education/Training Program 09/11/18 documented as of this encounter
--- OUTSIDE RECORDS SUMMARY | 2024-09-07 19:05 | XMS_ITS | Encounter Summary ---
Author Organization [facility] Address [address] [place] [address] Care Team Providers Care Foot Worker Name Role Phone Aditya Castro MD Primary Care Provider [phone] Reason for Visit * Reason Comments Follow Up Encounter Details Date Type Department Care Team (Late st Contact Info) Description 02/10/2023 11:00 AM CDT Office Visit [facility] Oncology and Hematology [place] [address] [place] [address] [facility] 200 [place] [address] Fernando Schmid MD [address] [facility] [address] [place] [address] Chronic anemia (Primary Dx) Social [...] Index 37.74 06/29/2022 6:00 PM RAIL CAR WELDER documented in this encounter Progress Notes * [...] Note: Added automatically from request for surgery [id number] Right upper quadrant pain 09/24/2020 Pre-transplant evaluation for kidney transplant 03/24/2020 Overview Note: Images from the original note were not included. Juvenal Rodriguez Pilo 1970 Referring Vacuum Drier Tender: Leandro Reyes Dialysis Info: Type: PD Time: 160 days (11/05/2019) Blood Type: A Body mass index is 37.8 kg/m??. ALERTS Promotion Specialist: Vashti Lizama NP Past Medical History: Diagnosis Date Anemia Arthritis Arthropathy osteo. back and knees see Dr. Norton CAD (coronary artery disease) Community acquired pneumonia 2017 [facility] hospitalized with double pneumonia Congestive heart failure Coronary artery disease Diabetes mellitus type 1 teens dx when he was 13. Insulin since he was dx. Insulin pump currently with dexacom. Vashti Lizama NPis radial router operator. DM (diabetes mellitus) TYPE 1 DVT (deep venous thrombosis) 2017 [facility]. ESRD on peritoneal dialysis Gout History of blood transfusion 2017 during admission for DE HLD (hyperlipidemia) HTN (hypertension) Hypercholesteremia 5 years on med Hypertension 30's on medications. Kidney disease Myocardial infarction 2017 [facility]. Stent x1 placed. Neuropathy feet Obstructive sleep [...] file Gets together: Not on file Attends shinto service: Not on file Active member of [...] 07/02/2020: Committee Discussion Details: Pt [facility] to [facility] to discuss his cardiac workup. Team [...] is the impression of this social worker aide that Juvenal Daigle has several positive factors [...] advised of safety concerns regarding immunosuppressants. Plan: general i farmworker to provide supportive services as needed. Patient appears to be a reasonable candidate for transplant from a psychosocial perspective. -Post transplant arrangement forms are needed prior to being listed. Psychiatric Consult Recommended: No Transplant Computer Information Systems Professor: Radha Roper LCSW RD:05/14/2020 BMI= 40.0, Class [...] Plavix and aspirin has been discontinued by commercial lending assistant. End-stage renal disease on peritoneal dialysis. Anemia [...] unspecified documented in this encounter Care Teams Foot Worker Relationship Specialty Start Date End Date Aditya Castro MD PCP - General Student in an Organized Health Care Education/Training Program 09/11/18 documented as of this encounter
--- OUTSIDE RECORDS SUMMARY | 2024-09-07 19:05 | XMS_ITS | Encounter Summary ---
Author Organization [facility] Address [address] [place] [address] Care Team Providers Care Payable Representative Name Role Phone Aditya Castro MD Primary Care Provider [phone] Encounter Details Date Type Department Care Team (Late st Contact Info) Description 08/10/2022 Abstract [facility] Oncology and Hematology - [place] [address] [phone] Lucinda Sr Social History Tobacco Use Types [...] on filedocumented in this encounter Care Teams Payable Representative Relationship Specialty Start Date End Date Aditya Castro MD PCP - General Student in an Organized Health Care Education/Training Program 09/11/18 documented as of this encounter
--- OUTSIDE RECORDS SUMMARY | 2024-09-07 19:05 | XMS_ITS | Encounter Summary ---
Author Organization [facility] [employer] [facility] Address [address] [place] [address] Care Team Providers Care Director Government Name Role Phone Aditya Castro MD Primary Care Provider [phone] Encounter Details Date Type Department Care Team (Late st Contact Info) Description 09/22/2022 Orders Only [facility] Oncology and Hematology - [place] [address] [place] [phone] Lucinda Sr History of deep vein thrombosis [...] Coronavirus/COVID-19? No / Unsure 09/21/2022 11:32 AM BENZENE WASHER documented as of this encounter Plan of Treatment Not on file documented as of this encounter Visit Diagnoses Diagnosis History of deep vein thrombosis Personal history of venous thrombosis and embolism documented in this encounter Care Teams Director Government Relationship Specialty Start Date End Date Aditya Castro MD PCP - General Student in an Organized Health Care Education/Training Program 09/11/18 documented as of this encounter
--- OUTSIDE RECORDS SUMMARY | 2024-09-07 19:05 | XMS_ITS | Encounter Summary ---
Author Organization [facility] [employer] [facility] Address [address] [place] [address] Care Team Providers Care Credit Clerk Name Role Phone Aditya Castro MD Primary Care Provider [phone] Reason for Visit * Reason Comments Med Refill Encounter Details Date Type Department Care Team (Late st Contact Info) Description 07/15/2023 Refill [facility] Oncology and Hematology - [place] [address] [facility] [address] [place] [address] Fernando Schmid MD [address] [facility] [address] [place] [address] Social History Tobacco Use Types [...] filedocumented in this encounter Care Teams Credit Clerk Relationship Specialty Start Date End Date Aditya Castro MD PCP - General Student in an Organized Health Care Education/Training Program 09/11/18 documented as of this encounter
--- OUTSIDE RECORDS SUMMARY | 2024-09-07 19:05 | XMS_ITS | Encounter Summary ---
Author Organization [facility] Address [address] [place] [address] Care Team Providers Care Filter Pulp Washer Name Role Phone Aditya Castro MD Primary Care Provider [phone] Encounter Details Date Type Department Care Team [...] filedocumented in this encounter Care Teams Filter Pulp Washer Relationship Specialty Start Date End Date Aditya Castro MD PCP - General Student in an Organized Health Care Education/Training Program 09/11/18 documented as of this encounter
--- OUTSIDE RECORDS SUMMARY | 2024-09-07 19:05 | XMS_ITS | Encounter Summary ---
Author Organization [facility] Address [address] [place] [address] Care Team Providers Care Swim Instructor Name Role Phone Aditya Castro MD Primary Care Provider [phone] Encounter Details Date Type Department Care Team [...] on filedocumented in this encounter Care Teams Swim Instructor Relationship Specialty Start Date End Date Aditya Castro MD PCP - General Student in an Organized Health Care Education/Training Program 09/11/18 documented as of this encounter
--- OUTSIDE RECORDS SUMMARY | 2024-09-07 19:05 | XMS_ITS | Encounter Summary ---
Author Organization [facility] Address [address] [place] [address] Care Team Providers Care Core Baker Name Role Phone Aditya Castro MD Primary Care Provider [phone] Encounter Details Date Type Department Care Team [...] on filedocumented in this encounter Care Teams Core Baker Relationship Specialty Start Date End Date Aditya Castro MD PCP - General Student in an Organized Health Care Education/Training Program 09/11/18 documented as of this encounter
--- OUTSIDE RECORDS SUMMARY | 2024-09-07 19:05 | XMS_ITS | Encounter Summary ---
Author Organization [facility] Address [address] [place] [address] Care Team Providers Care Medical Office Representative Name Role Phone Aditya Castro MD Primary Care Provider [phone] Encounter Details Date Type Department Care Team [...] on filedocumented in this encounter Care Teams Medical Office Representative Relationship Specialty Start Date End Date Aditya Castro MD PCP - General Student in an Organized Health Care Education/Training Program 09/11/18 documented as of this encounter
--- OUTSIDE RECORDS SUMMARY | 2024-09-07 19:05 | XMS_ITS | Encounter Summary ---
Author Organization [facility] Address [address] [place] [address] Care Team Providers Care Mortgage Loan Originator Name Role Phone Aditya Castro MD Primary Care Provider [phone] Encounter Details Date Type Department Care Team [...] on filedocumented in this encounter Care Teams Mortgage Loan Originator Relationship Specialty Start Date End Date Aditya Castro MD PCP - General Student in an Organized Health Care Education/Training Program 09/11/18 documented as of this encounter
--- OUTSIDE RECORDS SUMMARY | 2024-09-07 19:05 | XMS_ITS | Clinical Summary ---
Author Organization [facility] Address [address] [place] [address] Care Team Providers Care Phosphorus Processing Supervisor Name Role Phone Aditya Castro MD Primary Care Provider Allergies Active Allergy Reactions Criticality Noted Date Comments Allopurinol Shortness of Breath/Wheezing,Othe r (See Comments) High 07/31/2019 Shuts my kidneys down per patient. Chlorhexidine Other (See Comments) High 06/29/2022 Skin peels all over and becomes tender Iodinated Contrast Media Rash High 07/10/2017 Ticagrelor Rash High 05/04/2017 Medications isosorbide mononitrate (IMDUR) 30 mg Extended Release 24 hour tablet Take 30 mg by mouth daily surface room shop optician. Active clopidogrel (PLAVIX) 75 mg Tablet Take [...] NEEDLE TO INJ INSULIN SC QID 1 8 Active RANEXA 500 mg Extended Release 12 hour tablet 8 Active TRUE METRIX GLUCOSE TEST STRIP Strip 8 Active TRUE METRIX GLUCOSE METER 8 Active calcitRIOL (ROCALTROL) 0.25 mcg capsule Take 0.25 mcg by mouth daily. Active cetirizine (ZyrTEC) 10 mg tablet Take 10 mg by mouth daily. Active colchicine (COLCRYS) 0.6 mg tablet Take 0.6 mg by mouth daily. Active ezetimibe (ZETIA) 10 mg tablet Take 10 mg by mouth daily. Active ergocalciferol (VITAMIN D2) 50,000 unit capsule Take 50,000 Units by mouth. Active Insulin [place], Disposable, (TRUEPLUS PEN NEEDLE) 31 gauge x 5/16 Needle TRUEplus Pen Needle 31 gauge x 5/16 Active blood sugar diagnostic (TRUE METRIX GLUCOSE TEST STRIP) Strip True Metrix Glucose Test Strip Active lancets (ONETOUCH DELICA LANCETS) 30 gauge OneTouch Delica Lancets 30 gauge Active atorvastatin (LIPITOR) 80 mg tablet Take 1 Tablet (80 mg) by mouth daily. 30 Tablet 2 Active calcium acetate (CALPHRON) 667 mg Tablet tablet Take 1 Tablet (667 mg) by mouth 3 times daily before meals. 90 Tablet 2 Active gentamicin (GARAMYCIN) 0.1 % Ointment Apply to affected area daily. 2 Active metoprolol tartrate (LOPRESSOR) 25 mg tablet Take 0.5 Tablets (12.5 mg) by mouth 2 times daily. 30 Tablet 2 Active peg 400-hypromellose -glycerin 1-0.2-0.2 % solution Administer 1 Drop in both eyes 4 times daily. 2 Active famotidine (PEPCID) 40 mg tablet 3 Active losartan (COZAAR) 25 mg tablet 100 mg. 3 Active omeprazole (PriLOSEC) 20 mg Capsule, Delayed Release(E.C.) Take 20 mg by mouth daily. Active icosapent ethyL (Vascepa) 1 gram Capsule Take 2 Grams by mouth 2 times daily with meals. Active Eliquis 2.5 mg tablet TAKE 1 TABLET(2.5 MG) BY MOUTH TWICE DAILY 60 Tablet 5 3 Active Active Problems Problem Noted Date Diagnosed [...] (06/29/2022): Added automatically from request for surgery [id number] Right upper quadrant pain 09/24/2020 Pre-transplant evaluation for kidney transplant 03/24/2020 Overview (06/29/2022): Images from the original note were not included. Juvenal Daigle 1970 Referring Metalizing Machine Operator: Leandro Reyes Dialysis Info: Type: PD Time: 160 days (11/05/2019) Blood Type: A Body mass index is 37.8 kg/m??. ALERTS Reordering Clerk: Vashti Lizama NP Past Medical History: Diagnosis Date ? ? Anemia ? ? Arthritis ? ? Arthropathy osteo. back and knees see Dr. Norton ? ? CAD (coronary artery disease) ? ? Community acquired pneumonia 2017 [facility] hospitalized with double pneumonia ? ? Congestive heart failure ? ? Coronary artery disease ? ? Diabetes mellitus type 1 teens dx when he was 13. Insulin since he was dx. Insulin pump currently with dexacom. Vashti Lizama NP is vending machine collector. ? ? DM (diabetes mellitus) TYPE 1 ? ? DVT (deep venous thrombosis) 2017 [facility]. ? ? ESRD on peritoneal dialysis ? ? Gout ? ? History of blood transfusion 2017 during admission for PA ? ? HLD (hyperlipidemia) ? ? HTN (hypertension) ? ? Hypercholesteremia 5 years on med ? ? Hypertension 30's on medications. ? ? Kidney disease ? ? Myocardial infarction 2017 [facility]. Stent x1 placed. ? ? Neuropathy [...] file Gets together: Not on file Attends orthodox service: Not on file Active member of [...] Impression: It is the impression of this rn social work that Juvenal Daigle has several positive factors [...] of safety concerns regarding immunosuppressants. ?? Plan: wine cellar worker to provide supportive services as needed. Patient appears to be a reasonable candidate for transplant from a psychosocial perspective. ?? -Post transplant arrangement forms are needed prior to being listed. Psychiatric Consult Recommended: No ?? Transplant Media Planner: Radha Roper LCSW ?? RD:05/14/2020 BMI= 40.0, [...] cm (5' 10 ) 06/29/2022 6:00 PM FEDERAL JUDICIAL LAW CLERK Body Mass Index 37.74 06/29/2022 6:00 PM FEDERAL JUDICIAL LAW CLERK Plan of Treatment Health Maintenance Due Date [...] - T d or Tdap) 10/21/2029 10/22/2019 Insurance [facility] [id number] [facility] Advance Directives For more information, please contact: [phone] * Full Code (Latest Code Status on File) Date Activated Date Inactivated Comments 06/29/2022 2:49 PM 07/08/2022 4:30 PM Care Teams Phosphorus Processing Supervisor Relationship Specialty Start Date End Date Aditya Castro MD PCP - General Student in an Organized Health Care Education/Training Program 09/11/18
--- OUTSIDE RECORDS SUMMARY | 2024-09-07 19:05 | XMS_ITS | Encounter Summary ---
Author Organization [facility] Address [address] [place] [address] Care Team Providers Care Warehouse Foreman Name Role Phone Aditya Castro MD Primary Care Provider [phone] Encounter Details Date Type Department Care Team [...] on filedocumented in this encounter Care Teams Warehouse Foreman Relationship Specialty Start Date End Date Aditya Castro MD PCP - General Student in an Organized Health Care Education/Training Program 09/11/18 documented as of this encounter
--- OUTSIDE RECORDS SUMMARY | 2024-09-07 19:05 | XMS_ITS | Encounter Summary ---
Author Organization [facility] [employer] [facility] Address [address] [place] [address] Care Team Providers Care Botany Teacher Name Role Phone Aditya Castro MD Primary Care Provider [phone] Encounter Details Date Type Department Care Team (Late st Contact Info) Description 02/29/2024 Orders Only [facility] Oncology and Hematology - [place] [address] [place] [phone] Josefnia Rodríguez FNP [address] [facility] [address] [place] [address] Social History Tobacco Use Types [...] Modality Abdomen Other Josefina WILSON US ORDERABLES Final Result documented in this encounter Visit Diagnoses Not on filedocumented in this encounter Care Teams Botany Teacher Relationship Specialty Start Date End Date Aditya Castro MD PCP - General Student in an Organized Health Care Education/Training Program 09/11/18 documented as of this encounter
--- OUTSIDE RECORDS SUMMARY | 2024-09-07 19:05 | XMS_ITS | Encounter Summary ---
Author Organization [facility] [employer] [facility] Address [address] [place] [address] Care Team Providers Care Supervisor Crack Off Name Role Phone Aditya Castro MD Primary Care Provider [phone] Reason for Visit * Reason Comments Follow Up DVT Encounter Details Date Type Department Care Team (Late st Contact Info) Description 11/04/2022 10:45 AM CDT Video Visit [facility] Oncology and Hematology - [place] [address] [place] [phone] Karri Ortiz MD [address] [place] [phone] History of deep vein thrombosis (Primary [...] 2 times daily. 30 Tablet 0 peg 307-bkymvgvkotsc-rplocfwa 1-0.2-0.2 % solution Administer 1 Drop in both eyes 4 times daily. Insulin [place], Disposable, (TRUEPLUS PEN NEEDLE) 31 gauge x [...] tablet Take 30 mg by mouth daily criminal justice social worker. clopidogrel (PLAVIX) 75 mg Tablet Take 75 [...] dysuria; no frequency; no hesitancy; no hematuria PATIENT ACCESS COORDINATOR: Musculosketetal: Patient did not mention bone pain; [...] and aspirin. He will follow-up with a clinical unit educator. End-stage renal disease. Patient is on peritoneal [...] embolism documented in this encounter Care Teams Supervisor Crack Off Relationship Specialty Start Date End Date Aditya Castro MD PCP - General Student in an Organized Health Care Education/Training Program 09/11/18 documented as of this encounter
--- OUTSIDE RECORDS SUMMARY | 2024-09-07 19:05 | XMS_ITS | Encounter Summary ---
Author Organization [facility] Address [address] [facility] Attn: Epic Prelude ADT [place] [address] Care Team Providers Care Second Hand Name Role Phone Aditya Castro MD Primary Care Provider [phone] Encounter Details Date Type Department Care Team [...] Coronavirus/COVID-19? No / Unsure 09/21/2022 11:32 AM GAS WELDER documented as of this encounter Plan of Treatment Not on file documented as of this encounter Visit Diagnoses Not on filedocumented in this encounter Care Teams Second Hand Relationship Specialty Start Date End Date Aditya Castro MD PCP - General Student in an Organized Health Care Education/Training Program 09/11/18 documented as of this encounter
--- OUTSIDE RECORDS SUMMARY | 2024-09-07 19:05 | XMS_ITS | Encounter Summary ---
Author Organization [facility] [employer] [facility] Address [address] [place] [address] Care Team Providers Care Sand Mill Grinder Name Role Phone Aditya Castro MD Primary Care Provider [phone] Reason for Referral * Radiology Services (Routine) - Closed Specialty Diagnoses / Procedures Referred By Contac t Referred To Contact Diagnoses History of deep vein thrombosis Procedures US VENOUS DOPPLER LEG BILATERAL Fernando Schmid MD [address] [place] [address] Phone: tel: fax: [place] [phone] Referral ID Status Reason Start Date Expiration Date V isits Requested Visits Authorized [id number] Closed [facility] CTS 09/21/2022 10/22/2023 1 1 R DISTRIBUTOR Reason for Visit * Reason Comments Establish Care Encounter Details Date Type Department Care Team (Late st Contact Info) Description 09/21/2022 11:45 AM POWER DISTRIBUTOR Office Visit [facility] Oncology and Hematology [facility] [address] [address] Fernando Schmid MD [address] [place] [address] History of deep vein thrombosis [...] Coronavirus/COVID-19? No / Unsure 09/21/2022 11:32 AM POWER DISTRIBUTOR documented as of this encounter Last Filed Vital Signs Vital Sign Reading Time Taken Comments Blood Pressure 131/50 09/21/2022 11:43 AM POWER DISTRIBUTOR Pulse 70 09/21/2022 11:43 AM POWER DISTRIBUTOR Temperature 36.7 ??C (98 ??F) 09/21/2022 11:43 AM POWER DISTRIBUTOR Respiratory Rate 16 09/21/2022 11:43 AM POWER DISTRIBUTOR Oxygen Saturation 95% 09/21/2022 11:43 AM POWER DISTRIBUTOR Inhaled Oxygen Concentration - - Weight 124 kg (273 lb 4.8 oz) 09/21/2022 11:43 A M POWER DISTRIBUTOR Height - - Body Mass Index 39.21 06/29/2022 6:00 PM POWER DISTRIBUTOR documented in this encounter Progress Notes * [...] 2 times daily. 30 Tablet 0 peg 676-ldjnfgvznrkq-buqfdhhy 1-0.2-0.2 % solution Administer 1 Drop in both eyes 4 times daily. Insulin [place], Disposable, (TRUEPLUS PEN NEEDLE) 31 gauge x [...] tablet Take 30 mg by mouth daily forest pathology professor. clopidogrel (PLAVIX) 75 mg Tablet Take 75 [...] dysuria; no frequency; no hesitancy; no hematuria MOTOR VEHICLES SUPERVISOR: Musculosketetal: Patient did not mention bone pain; [...] and aspirin. He will follow-up with a scientific photographer. End-stage renal disease. Patient is on peritoneal [...] of the total time spent counseling patient [id number]. CC:?Aditya Castro MD R DISTRIBUTOR documented in this encounter Plan of Treatment [...] embolism documented in this encounter Care Teams Sand Mill Grinder Relationship Specialty Start Date End Date Aditya Castro MD PCP - General Student in an Organized Health Care Education/Training Program 09/11/18 documented as of this encounter
--- OUTSIDE RECORDS SUMMARY | 2024-09-07 19:05 | XMS_ITS | Encounter Summary ---
Author Organization [facility] Address [address] [place] [address] Care Team Providers Care Banking Management Consulting Manager Name Role Phone Aditya Castro MD Primary Care Provider [phone] Encounter Details Date Type Department Care Team [...] on filedocumented in this encounter Care Teams Banking Management Consulting Manager Relationship Specialty Start Date End Date Aditya Castro MD PCP - General Student in an Organized Health Care Education/Training Program 09/11/18 documented as of this encounter
--- OUTSIDE RECORDS SUMMARY | 2024-09-07 19:05 | XMS_ITS | Encounter Summary ---
Author Organization [facility] Address [address] [place] [address] Care Team Providers Care Licensed Sales Assistant Name Role Phone Aditya Castro MD Primary Care Provider [phone] Encounter Details Date Type Department Care Team [...] on filedocumented in this encounter Care Teams Licensed Sales Assistant Relationship Specialty Start Date End Date Aditya Castro MD PCP - General Student in an Organized Health Care Education/Training Program 09/11/18 documented as of this encounter
--- OUTSIDE RECORDS SUMMARY | 2024-09-07 19:05 | XMS_ITS | Encounter Summary ---
Author Organization [facility] Address [address] [place] [address] Care Team Providers Care Manager Primary Care Name Role Phone Aditya Castro MD Primary Care Provider [phone] Encounter Details Date Type Department Care Team (Late st Contact Info) Description 10/27/2022 Orders Only [facility] Oncology and Hematology - [place] [address] [phone] Lucinda Sr History of deep vein thrombosis [...] embolism documented in this encounter Care Teams Manager Primary Care Relationship Specialty Start Date End Date Aditya Castro MD PCP - General Student in an Organized Health Care Education/Training Program 09/11/18 documented as of this encounter
--- OUTSIDE RECORDS SUMMARY | 2024-09-07 19:05 | XMS_ITS | Encounter Summary ---
Author Organization [facility] Address [address] [place] [address] Care Team Providers Care Medical Orderly Name Role Phone Aditya Castro MD Primary Care Provider [phone] Encounter Details Date Type Department Care Team [...] filedocumented in this encounter Care Teams Medical Orderly Relationship Specialty Start Date End Date dAitya Castro MD PCP - General Student in an Organized Health Care Education/Training Program 09/11/18 documented as of this encounter
--- OUTSIDE RECORDS SUMMARY | 2024-09-07 19:05 | XMS_ITS | Encounter Summary ---
Author Organization [facility] Address [address] [place] [address] Care Team Providers Care News Editor Name Role Phone Aditya Castro MD Primary Care Provider [phone] Encounter Details Date Type Department Care Team [...] on filedocumented in this encounter Care Teams News Editor Relationship Specialty Start Date End Date Aditya Castro MD PCP - General Student in an Organized Health Care Education/Training Program 09/11/18 documented as of this encounter
--- OUTSIDE RECORDS SUMMARY | 2024-09-07 19:05 | XMS_ITS | Encounter Summary ---
Author Organization [facility] Address [address] [place] [address] Care Team Providers Care Database Programmer Analyst Name Role Phone Aditya Castro MD Primary Care Provider [phone] Encounter Details Date Type Department Care Team [...] on filedocumented in this encounter Care Teams Database Programmer Analyst Relationship Specialty Start Date End Date Aditya Castro MD PCP - General Student in an Organized Health Care Education/Training Program 09/11/18 documented as of this encounter
--- OUTSIDE RECORDS SUMMARY | 2024-09-07 19:06 | XMS_ITS | Encounter Summary ---
Author Organization [facility] Address [address] [facility] Attn: Epic Prelude ADT [place] [address] Care Team Providers Care Hedis Abstractor Name Role Phone Aditya Castro MD Primary Care Provider [phone] Encounter Details Date Type Department Care Team [...] Coronavirus/COVID-19? 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
--- OUTSIDE RECORDS SUMMARY | 2024-09-07 19:06 | XMS_ITS | Encounter Summary ---
Author Organization [facility] Address [address] [facility] Attn: Epic Prelude ADT [place] [address] Care Team Providers Care Corporate Quality Manager Name Role Phone Aditya Castro MD Primary Care Provider [phone] Encounter Details Date Type Department Care Team [...] on filedocumented in this encounter Care Teams Corporate Quality Manager Relationship Specialty Start Date End Date Aditya Castro MD PCP - General Student in an Organized Health Care Education/Training Program 09/11/18 documented as of this encounter
--- OUTSIDE RECORDS SUMMARY | 2024-09-07 19:06 | XMS_ITS | Encounter Summary ---
Author Organization [facility] Address [address] [place] [address] Care Team Providers Care Gauge Machine Operator Name Role Phone Aditya Castro MD Primary Care Provider [phone] Reason for Visit * Reason Comments Follow Up 3 month Encounter Details Date Type Department Care Team (Late st Contact Info) Description 05/01/2019 10:00 AM CDT Office Visit [facility] Oncology and Hematology - [place] [address] [place] [address] [facility] [address] [place] [address] Fernando Schmid MD [address] [facility] [address] [place] [address] Anemia in stage 4 chronic [...] He is not a tobacco user. 05/01/2019 Feranndo Schmid MD documented in this encounter Plan of Treatment Not on file documented as of this encounter Results * CBC WITH DIFFERENTIAL (08/15/2019) Blood Fernando Schmid MD HEMATOLOGY ORDERABLES Final Res ult Performing Organization Address [facility]/ZIP Co de Phone Number EXTERNAL LAB * BASIC METABOLIC PANEL (05/15/2019) Blood Fernando Schmid MD CHEMISTRY ORDERABLES Final Resu lt EXTERNAL LAB documented in this encounter Visit Diagnoses Diagnosis Anemia in stage 4 chronic kidney disease- Primary documented in this encounter Care Teams Gauge Machine Operator Relationship Specialty Start Date End Date Aditya Castro MD PCP - General Student in an Organized Health Care Education/Training Program 09/11/18 documented as of this encounter
--- OUTSIDE RECORDS SUMMARY | 2024-09-07 19:06 | XMS_ITS | Encounter Summary ---
Author Organization [email or web address] Address [address] [place] [address] Care Team Providers Care Bank Note Designer Name Role Phone Aditya Castro MD Primary Care Provider [phone] Encounter Details Date Type Department Care Team (Late st Contact Info) Description 04/15/2019 Telephone [facility] Oncology and Hematology - [place] [address] [facility] [address] [place] [address] Fernando Schmid MD [address] [facility] [address] [place] [address] Social History Tobacco Use Types [...] filedocumented in this encounter Care Teams Bank Note Designer Relationship Specialty Start Date End Date Aditya Castro MD PCP - General Student in an Organized Health Care Education/Training Program 09/11/18 documented as of this encounter
--- OUTSIDE RECORDS SUMMARY | 2024-09-07 19:06 | XMS_ITS | Encounter Summary ---
Author Organization [facility] Address [address] [place] [address] Care Team Providers Care Grease Maker Head Name Role Phone Aditya Castro MD Primary Care Provider [phone] Encounter Details Date Type Department Care Team (Late st Contact Info) Description 07/12/2019 Orders Only [facility] Oncology and Hematology - [place] [address] [facility] [address] [place] [address] Fernando Schmid MD [address] [facility] [address] [place] [address] Anemia in stage 4 chronic [...] DIFFERENTIAL (07/12/2019) Blood Fernando Schmid MD HEMATOLOGY ORDERABLES Final Res ult NON [facility] documented in this encounter Visit Diagnoses Diagnosis Anemia in stage 4 chronic kidney disease documented in this encounter Care Teams Grease Maker Head Relationship Specialty Start Date End Date Aditya Castro MD PCP - General Student in an Organized Health Care Education/Training Program 09/11/18 documented as of this encounter
--- OUTSIDE RECORDS SUMMARY | 2024-09-07 19:06 | XMS_ITS | Encounter Summary ---
Author Organization [facility] [employer] [facility] Address [address] [place] [address] Care Team Providers Care Skate Maker Name Role Phone Aditya Castro MD Primary Care Provider [phone] Encounter Details Date Type Department Care Team (Late st Contact Info) Description 10/18/2019 Orders Only [facility] Oncology and Hematology - [place] [address] [facility] [address] [place] [address] Fernando Schmid MD [address] [facility] [address] [place] [address] Anemia of chronic renal failure, [...] Results * CBC WITH DIFFERENTIAL (10/16/2019) Blood us Fernando Schmid MD HEMATOLOGY ORDERABLES Final Res ult EXTERNAL LAB documented in this encounter Visit Diagnoses Diagnosis Anemia of chronic renal failure, stage 4 (severe) documented in this encounter Care Teams Skate Maker Relationship Specialty Start Date End Date Aditya Castro MD PCP - General Student in an Organized Health Care Education/Training Program 09/11/18 documented as of this encounter
--- OUTSIDE RECORDS SUMMARY | 2024-09-07 19:06 | XMS_ITS | Encounter Summary ---
Author Organization [facility] Address [address] [place] [address] Care Team Providers Care Butcher Supervisor Name Role Phone Aditya Castro MD Primary Care Provider [phone] Encounter Details Date Type Department Care Team (Late st Contact Info) Description 07/31/2019 Orders Only [facility] Oncology and Hematology - [place] [address] [facility] [address] [place] [address] Fernando Schmid MD [address] [facility] [address] [place] [address] Anemia of chronic renal failure, [...] (08/15/2019) Blood Fernando Schmid MD CHEMISTRY ORDERABLES Final Resu lt NON [facility] * TRANSFERRIN RECEPTOR TFR SOLUBLE (08/15/2019) Blood Fernando Schmid MD CHEMISTRY ORDERABLES Final Resu lt NON [facility] documented in this encounter Visit Diagnoses Diagnosis Anemia of chronic renal failure, stage 4 (severe) Anemia in stage 4 chronic kidney disease documented in this encounter Care Teams Butcher Supervisor Relationship Specialty Start Date End Date Aditya Castro MD PCP - General Student in an Organized Health Care Education/Training Program 09/11/18 documented as of this encounter
--- OUTSIDE RECORDS SUMMARY | 2024-09-07 19:06 | XMS_ITS | Encounter Summary ---
Author Organization [facility] Address [address] [place] [address] Care Team Providers Care President [employer] Name Role Phone Aditya Castro MD Primary Care Provider [phone] Encounter Details Date Type Department Care Team (Late st Contact Info) Description 10/23/2019 Orders Only [facility] Oncology and Hematology - [place] [address] [facility] [address] [place] [address] Fernando Schmid MD [address] [facility] [address] [place] [address] Anemia in stage 4 chronic [...] Results * BASIC METABOLIC PANEL (10/30/2019) Blood us Fernando Schmid MD CHEMISTRY ORDERABLES Final Resu lt Performing Organization Address City/[facility]/ZIP Co de Phone Number NON [facility] * CBC WITH DIFFERENTIAL (10/30/2019) Blood Fernando Schmid MD HEMATOLOGY ORDERABLES Final Res ult Performing Organization Address [facility] Co de Phone Number NON [facility] documented in this encounter Visit Diagnoses Diagnosis Anemia in stage 4 chronic kidney disease Anemia of chronic renal failure, stage 4 (severe) documented in this encounter Care Teams President [employer] Relationship Specialty Start Date End Date Aditya Castro MD PCP - General Student in an Organized Health Care Education/Training Program 09/11/18 documented as of this encounter
--- OUTSIDE RECORDS SUMMARY | 2024-09-07 19:06 | XMS_ITS | Encounter Summary ---
Author Organization [facility] Address [address] [place] [address] Care Team Providers Care Morgue Technician Name Role Phone Aditya Castro MD Primary Care Provider [phone] Encounter Details Date Type Department Care Team (Latest Contact Info) Description 06/29/2022 2:35 PM AIR TECHNICIAN - 07/08/2022 1:46 PM AIR TECHNICIAN Hospital Encounter [facility] Comprehensive Unit [address] [place] [id number] [place] [address] [place] [address] Acute on chronic HFrEF (heart [...] Coronavirus/COVID-19? No / Unsure 07/02/2022 12:57 PM AIR TECHNICIAN documented as of this encounter Last Filed Vital Signs Vital Sign Reading Time Taken Comments Blood Pressure 102/63 07/08/2022 7:25 AM AIR TECHNICIAN Pulse 72 07/08/2022 7:25 AM AIR TECHNICIAN Temperature 36.8 ??C (98.3 ??F) 07/08/2022 4:42 AM CS T Respiratory Rate 16 07/08/2022 7:25 AM AIR TECHNICIAN Oxygen Saturation 98% 07/08/2022 7:25 AM AIR TECHNICIAN Inhaled Oxygen Concentration - - Weight 116.1 kg (256 lb) 07/08/2022 9:00 AM AIR TECHNICIAN Height 177.8 cm (5' 10 ) 06/29/2022 6:00 PM AIR TECHNICIAN Body Mass Index 36.73 06/29/2022 6:00 PM AIR TECHNICIAN documented in this encounter Discharge Summaries * [...] BEN on CPAP who initially presented to [facility] for n/v and chest pain. Per Pt he had 3 days of generalized weakness, chills, ROONEY, n/v, chest pain relieved by sublingual ntg. His labs were notable for trop 1.0-->1.09-->0.729, BNP 09762. He had a CT CAP showing cholelithiasis [...] as optimal treatment. Pt was transfered to [facility] on 06/05. Upon arrival EKG showed sinus [...] medically appropriate, he was tr ansferred to [facility] for comprehensive rehabilitation on 06/29/22. The patient was admitted to [facility] to undergo intensive inpatient rehabilitation for [...] mainly, min LE drsg and foot wear. COMPLIANCE PARALEGAL: min for memory and PS. Goals: progressing well, reaching CGA-SBA; continue to address his medical stability, orthostasis, strengthening, endurance, balance to reach mod I at dc ELOS: 07/09 [facility] PT, OT, COMPLIANCE PARALEGAL, RN. Discharge Destination: home Condition: stable Discharge [...] MD Quantity: 30 Tablet Refills: 0 peg 817-bnkieefxbkvf-vnhearpb 1-0.2-0.2 % solution Administer 1 Drop in [...] here. 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 Refills: 0 CONTINUE taking these medications aspirin 81 mg Tablet, Chewable Commonly known as: JOSEPH CHEWABLE Take 81 mg by mouth daily. Refills: 0 * TRUEplus Pen Needle 31 gauge x 5/16 Needle TRUEplus Pen Needle 31 gauge x 5/16 Refills: 0 Generic drug: Insulin Cimarron (Disposable) * BD Ultra-Fine Short Pen Needle 31 gauge x 5/16 Needle U ONE PEN NEEDLE TO INJ INSULIN SC QID Refills: 1 Generic drug: Insulin Cimarron (Disposable) calcitRIOL 0.25 mcg capsule Commonly known [...] Your Medications These medications [id number] - [place], [place] - [address] [place] [facility] [phone], [place] [address] atorvastatin 80 mg tablet calcium acetate 667 mg Tablet tablet doxycycline monohydrate 50 mg Capsule metoprolol tartrate 25 mg tablet Please take the prescriptions given to you during your stay and have them filled at any pharmacy. You don't need a prescription for these medications peg 352-vtshygvuhycx-rdzhfxed 1-0.2-0.2 % solution Recommended Follow up: PCP, Aditya Lara MD [phone] Cardiology Endocrinology Srinivas Jon MD CC: Aditya Lara MD TECHNICIAN documented in this encounter Discharge Instructions * Discharge Instructions* Srinivas Jon MD - 07/07/2022 11:00 AM AIR TECHNICIAN Discharge: home Condition: stable Recommended diet: Renal Diet/Diabetic Diet Recommended activity: activity as tolerated Follow up: PCP, Aditya Lara MD [phone] Cardiology Endocrinology Post Discharge Safety Recommendations No [...] wound clean and dry CONTINUED THERAPY and/or CARE HOME CARE: Home Health - [facility] - . They will call you for your first visit. Physical Therapy Occupational Therapy Speech Therapy DURABLE MEDICAL EQUIPMENT : Your prescription for a walker has been sent to [facility] [phone]. If there are problems please contact them. Your equipment (walker) was provided to you prior to discharge. Activity Status: Activity Assist Needed Screening: Supervision;With stand by assist (07/07/22 0900) Transfers: Modified Imperial, Supervision, with gait belt, and with walker Upper body dressing: Independent Lower body dressing: Modified Imperial Bath: Supervision seated (recommend purchasing shower chair- can order on Tara, Daniatejinder, [employer], [employer]ania[employer]) [facility] FAX: [phone] [facility] Advanced Clinical Specialist: Carey Lo LMSW TECHNICIAN TECHNICIAN TECHNICIAN TECHNICIAN TECHNICIAN TECHNICIAN TECHNICIAN documented in this encounter Medications at Time of Discharge atorvastatin (LIPITOR) 80 mg tablet Take 1 [...] 2 times daily. 30 Tablet 07/07/2022 peg 400-hypromellose- glycerin 1-0.2-0.2 % solution Administer 1 Drop in both eyes 4 times daily. 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 clopidogrel (PLAVIX) 75 mg Tablet Take 75 [...] hours for 2 days. 4 Capsule 07/07/2022 2 documented as of this encounter Progress Notes [...] pt left with his brother at 1:43pm TECHNICIAN * Srinivas Jon MD - 07/08/2022 11:02 AM CST REHAB/PMA&R DAILY PROGRESS NOTE Date: 07/08/2022 Time: 11:02 AM Subjective: Slept, No overnight events. No new issues. IM and renal input appreciated. ESRD on PD. Insulin pump per home regimen. Eucerin for dry skin. Completed IP therapy, reached CGA-SBA. Dc home today after therapy. Meds e- scribed. [facility] ordered. Pt is aware. Function status and progress towards rehab goals: PT: ambulated 150' with WWR and CGA/SBA. Denies any dizziness/lightheadedness. OT: CGA mainly, min LE drsg and foot wear. COMPLIANCE PARALEGAL: min for memory and PS. Goals: met, reached CGA-SBA; ELOS: 07/09 [facility] PT, OT, COMPLIANCE PARALEGAL, RN. Review of System: No fever, nausea/vomiting, [...] PA 667 mg at 07/08/22 0730 peg 121-bthkyciodkoz-hmgsynfn 1-0.2-0.2 % ophthalmic solution 1 Drop 1 Drop QID Avni Clifford PA 1 Drop at 07/08/22 0727 calcitRIOL (ROCALTROL) capsule 0.25 mcg 0.25 mcg [...] Tablet 1 Tablet every 6 hours PRN Dontrell Srinivas, MD 1 Tablet at 07/06/222016 Data: UA [...] Code: full F/u: PCP, Aditya Lara MD [phone] Cardiology Endocrinology Srinivas Jon MD TECHNICIAN * Conrad Dumont MD - 07/08/2022 10:06 [...] overnight was 99 ??F. PD management continues. Oeddg-tg-xqqh glucoses are elevated patient is following endocrine's [...] crucial and indicated. 06/29/2022 - Admission to [facility] - (Admission Data below). DAPT on ASA and Plavix. Pt appears ill. Pt with PD cath and DM pump. Discussed care at length with bedside RN and RESPlead. On going aggressive medical mgt continues to optimize pt for continued success in the comprehensive rehab course. Complex needs are noted. Reviewed extensive records from [facility] and daughter says BIPAP settings. Assessment and [...] reflux disease without esophagitis Dystrophia unguium Dysphagia- COMPLIANCE PARALEGAL to assess and follow Cardiogenic shock Anemia [...] PA 667 mg at 07/08/22 0730 peg 564-ovhqdazmklhg-ndczgfyq 1-0.2-0.2 % ophthalmic solution 1 Drop 1 Drop QID Avni Clifford PA 1 Drop at 07/08/22 0727 calcitRIOL (ROCALTROL) capsule 0.25 mcg 0.25 mcg [...] injection QID WITH meals and HS Avni Cliffrod PA 6.6 Units at 07/07/22 1700 colchicine [...] male who recently has been admitted to [facility] for comprehensive rehabilitation - multiple complex medical issues will impact medical management throughout the acute inpatient rehabilitation process. Pt has a significant medical history including but not limited to CHF- EF 50%, Afib, HTN, CAD, T1DM, ESRD on PD, HLD, GERD, hyperparathyroidism, DDD, OA, gout, BEN on CPAP, who initially presented to [facility] for n/v, onset three days, with associated chest pain, generalized weakness, chills, ROONEY. Symptoms were relieved with sublingual ntg. His labs were notable for trop 1.0-->1.09-->0.729, BNP 80830. He had a CT CAP showing cholelithiasis [...] as optimal treatment. Pt was transfered to [facility] on 06/05. Upon arrival EKG showed sinus [...] (most recent): No results found for: HGBA1C, [id number] LIPID panel result (most recent): No results [...] LESLY Ayala MD Internal Medicine Director // TECHNICIAN TECHNICIAN TECHNICIAN * Shawn Silva RN - 07/08/2022 6:13 AM CST Bedside report with transition of care completed. Pt is A&Ox4 and is able to make needs known. Vitals stable, Lung sounds are clear. continent of Bowel and Bladder. LBM 07/06. Medication administration as documented in MAR, administered scheduled night time medication without any [...] side effects oftheir medication Shawn Silva RN TECHNICIAN * Filomena Sibley RN - 07/07/2022 7:47 PM CST Patient alert and oriented, timeout completed and consent given for CCPD prior to connection. CCPD Connected at 19:30. Dressing changed per protocol no signs and symptoms of infection on exit site. Report given to primary nurse,CCPD approximate end time is 06:00 next morning. 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 JASMIN BRADLEY MD [facility] Nephrology Office [phone] TECHNICIAN * Girish Arreola - 07/07/2022 3:50 PM [...] and for his family. Chaplain Bernabe Arreola Physician Industrial II Extension:[id number] TECHNICIAN * Conrad Dumont MD - 07/07/2022 11:45 [...] overnight was 99 ??F. PD management continues. Ckxwm-un-kfzo glucoses are elevated patient is following endocrine's [...] crucial and indicated. 06/29/2022 - Admission to [facility] - (Admission Data below). DAPT on ASA and Plavix. Pt appears ill. Pt with PD cath and DM pump. Discussed care at length with bedside RN and RESPlead. On going aggressive medical mgt continues to optimize pt for continued success in the comprehensive rehab course. Complex needs are noted. Reviewed extensive records from [facility] and daughter says BIPAP settings. Assessment and [...] reflux disease without esophagitis Dystrophia unguium Dysphagia- COMPLIANCE PARALEGAL to assess and follow Cardiogenic shock Anemia [...] BID Avni Clifford PA 12.5 mg at 3 furosemide (LASIX) tablet 80 mg 80 mg [...] PA 667 mg at 07/07/22 0842 peg 980-uovdfcphegcw-pcowulqw 1-0.2-0.2 % ophthalmic solution 1 Drop 1 [...] pump basal (NovoLOG) 100 unit/mL infusion TID Avin Clifford PA 5.8 Units/hr at 07/07/22 0301 [...] male who recently has been admitted to [facility] for comprehensive rehabilitation - multiple complex medical issues will impact medical management throughout the acute inpatient rehabilitation process. Pt has a significant medical history including but not limited to CHF- EF 50%, Afib, HTN, CAD, T1DM, ESRD on PD, HLD, GERD, hyperparathyroidism, DDD, OA, gout, BEN on CPAP, who initially presented to [facility] for n/v, onset three days, with associated chest pain, generalized weakness, chills, ROONEY. Symptoms were relieved with sublingual ntg. His labs were notable for trop 1.0-->1.09-->0.729, BNP 05123. He had a CT CAP showing cholelithiasis [...] as optimal treatment. Pt was transfered to [facility] on 06/05. Upon arrival EKG showed sinus [...] (most recent): No results found for: HGBA1C, [id number] LIPID panel result (most recent): No results [...] LESLY Ayala MD Internal Medicine Director // TECHNICIAN TECHNICIAN TECHNICIAN * Srinivas Jon MD - 07/07/2022 8:05 AM CST REHAB/PMA&R DAILY PROGRESS NOTE Date: 07/07/2022 Time: 8:05 AM Subjective: Slept, eating ok. Occasional lightheadedness in therapy, improved. IM and renal input appreciated. ESRD on PD. Insulin pump per home regimen. Eucerin for dry skin. Progressing well in therapy, reaching CGA-SBA. Planning dc home on 07/09 with [facility] and supervision. HHC ordered. Pt is aware. Function status and progress towards rehab goals: PT: ambulated 150' with WWR and CGA/SBA. Denies any dizziness/lightheadedness. OT: CGA mainly, min LE drsg and foot wear. COMPLIANCE PARALEGAL: min for memory and PS. Goals: progressing well, reaching CGA-SBA; continue to address his medical stability, orthostasis, strengthening, endurance, balance to reach mod I at dc ELOS: 07/09 [facility] PT, OT, COMPLIANCE PARALEGAL, RN. Review of System: No fever, nausea/vomiting, [...] PA 667 mg at 07/06/22 1706 peg 636-isxqhpxywjut-wapbhoqz 1-0.2-0.2 % ophthalmic solution 1 Drop 1 Drop QID Avni Clifford PA 1 Drop at 07/06/22 202 calcitRIOL (ROCALTROL) capsule 0.25 mcg 0.25 mcg [...] Avni Clifford PA 50 mg at 07/06/22 2018 ezetimibe (ZETIA) tablet 10 mg 10 mg daily Avni Clifford PA 10 mg at 07/06/22 0737 ranolazine ER (RANEXA) SR 12 hour tablet 500 mg 500 mg every 12 hours (2 times daily) Avni Clifford PA 500 mg at 07/06/222018 cetirizine (ZyrTEC) tablet 5 mg 5 mg [...] Code: full F/u: PCP, Aditya Lara MD [phone] Cardiology Endocrinology Srinivas Jon MD TECHNICIAN * Kamryn Browning RN - 07/06/2022 10:40 [...] light and bed alarm.Needs attended t o. TECHNICIAN * Filomena Sibley RN - 07/06/2022 7:35 PM CST Patient alert and oriented, timeout completed and consent given for CCPD prior to connection. CCPD Connected at 19:15. Dressing changed per protocol no signs and symptoms of infection on exit site. Report given to primary nurse,CCPD approximate end time is 05:40 next morning. TECHNICIAN * Leonela Lantigua RN - 07/06/2022 6:14 [...] pump today. See communication note regarding dosing. TECHNICIAN TECHNICIAN * Jasmin Bradley MD - 07/06/2022 6:00 [...] TIBC, FERRITIN, Lab Results Component Value Date [id number] 1,178 06/30/2022 , No results found for: [...] up closely with you. JASMIN BRADLEY MD [facility]ph[facility] Office [phone] TECHNICIAN * Leonela Lantigua RN - 07/06/2022 5:32 [...] gave 5.45 units insulin. Current rate 0.8units/hr. TECHNICIAN TECHNICIAN * Conrad Dumont MD - 07/06/2022 2:32 PM CST Images from the original note were not included. Internal Medicine/Rehabilitation Service Patient: Juvenal Daigle Date of : 1970 Admission Date: (06/29/2022) Vitals With Comments 07/06/2022 1000 07/06/2022 0516 07/05/2022201207/05/2022 193 BP: -- 152/77 178/73 178/73 Pulse: -- [...] overnight was 99 ??F. PD management continues. Mljbv-nq-nets glucoses are elevated patient is following endocrine's [...] crucial and indicated. 06/29/2022 - Admission to [facility] - (Admission Data below). DAPT on ASA and Plavix. Pt appears ill. Pt with PD cath and DM pump. Discussed care at length with bedside RN and RESPlead. On going aggressive medical mgt continues to optimize pt for continued success in the comprehensive rehab course. Complex needs are noted. Reviewed extensive records from [facility] and daughter says BIPAP settings. Assessment and [...] reflux disease without esophagitis Dystrophia unguium Dysphagia- COMPLIANCE PARALEGAL to assess and follow Cardiogenic shock Anemia [...] BID Avni Clifford PA 12.5 mg at 5 furosemide (LASIX) tablet 80 mg 80 mg [...] PA 667 mg at 07/06/22 1229 peg 290-tofwcytluytb-xsjvtncu 1-0.2-0.2 % ophthalmic solution 1 Drop 1 [...] male who recently has been admitted to [facility] for comprehensive rehabilitation - multiple complex medical issues will impact medical management throughout the acute inpatient rehabilitation process. Pt has a significant medical history including but not limited to CHF- EF 50%, Afib, HTN, CAD, T1DM, ESRD on PD, HLD, GERD, hyperparathyroidism, DDD, OA, gout, BEN on CPAP, who initially presented to [facility] for n/v, onset three days, with associated chest pain, generalized weakness, chills, ROONEY. Symptoms were relieved with sublingual ntg. His labs were notable for trop 1.0-->1.09-->0.729, BNP 80170. He had a CT CAP showing cholelithiasis [...] as optimal treatment. Pt was transfered to [facility] on 06/05. Upon arrival EKG showed sinus [...] (most recent): No results found for: HGBA1C, [id number] LIPID panel result (most recent): No results [...] LESLY Ayala MD Internal Medicine Director // TECHNICIAN TECHNICIAN TECHNICIAN * Srinivas Jon MD - 07/06/2022 12:52 PM CST REHAB/PMA&R DAILY PROGRESS NOTE Date: 07/06/2022 Time: 12:52 PM Subjective: Sleeping and eating ok. Mild lightheadedness in PT today. IM and renal input appreciated. ESRD on PD. Eucerin for dry skin. Progressing well in therapy. Recent labs reviewed. Planning dc home on 07/09 with HHC and supervision. Pt is aware. Function status and progress towards rehab goals: PT: ambulated 100' in hallway and 50' in comp gym with WWR and CGA/SBA. Denies any dizziness/lightheadedness. OT: CGA mainly, min LE drsg and foot wear. COMPLIANCE PARALEGAL: min for memory and PS. Goals: continue to address his medical stability, orthostasis, strengthening, endurance, balance toreach mod I at id ELOS: 07/09 [facility] PT, OT, COMPLIANCE PARALEGAL, RN. Review of System: No fever, nausea/vomiting, [...] PA 667 mg at 07/06/22 1229 peg 186-ipsjtfngscxs-mjltyohd 1-0.2-0.2 % ophthalmic solution 1 Drop 1 [...] Code: full F/u: PCP, Aditya Lara MD [phone] Cardiology Endocrinology Srinivas Jon MD TECHNICIAN * Kamryn Browning RN - 07/05/2022 10:00 [...] replaced with new cartridge. Pt complaints of pain,[place] is given with all other meds. Hourly rounding,call light within reach , bed alarm on and low bed. Blood sugar checked. Bruised notedon his abdomen and dry & flaky skin. TECHNICIAN * Marry Estrada RN - 07/05/2022 6:29 PM CST 07/04/22: I drain volume- 5 ml Total UF- 557 ml Effluent clear yellow 07/05/22: patient connected to peritoneal dialysis. Dressing changed earlier in the day. Patient is calm, alert and oriented x's 4. TECHNICIAN * Jasmin Bradley MD - 07/05/2022 5:00 [...] TIBC, FERRITIN, Lab Results Component Value Date [id number] 1,178 06/30/2022 , No results found for: [...] BRADLEY MD [facility] [phone] TECHNICIAN * Conrad Dumont MD - 07/05/2022 2:10 PM CST Images from the original note were not included. Internal Medicine/Rehabilitation Service Patient: Juvenal Daigle Date of : 1970 Admission Date: (06/29/2022) Vitals With Comments 07/05/2022 1100 07/05/2022 0819 07/05/2022 0544 07/04/2022 1944 BP: -- 107/66 137/73 148/79 Pulse: -- [...] overnight was 99 ??F. PD management continues. Hkviz-ho-tvdo glucoses are elevated patient is following endocrine's [...] needs are noted. Reviewed extensive records from [facility] and daughter says BIPAP settings. Assessment and [...] reflux disease without esophagitis Dystrophia unguium Dysphagia- COMPLIANCE PARALEGAL to assess and follow Cardiogenic shock Anemia [...] BID Avni Clifford PA 12.5 mg at 0 furosemide (LASIX) tablet 80 mg 80 mg [...] PA 667 mg at 07/05/22 1201 peg 115-tsooevgohsur-bnzrkzio 1-0.2-0.2 % ophthalmic solution 1 Drop 1 [...] (PLAVIX) tablet 75 mg 75 mg daily Avin Clifford PA 75 mg at 07/05/22 0820 [...] mg 200 mg every 4 hours PRN Anvi Clifford PA folic acid-Vit B6-Vit B12 (FOLTX) [...] male who recently has been admitted to [facility] for comprehensive rehabilitation - multiple complex medical issues will impact medical management throughout the acute inpatient rehabilitation process. Pt has a significant medical history including but not limited to CHF- EF 50%, Afib, HTN, CAD, T1DM, ESRD on PD, HLD, GERD, hyperparathyroidism, DDD, OA, gout, BEN on CPAP, who initially presented to [facility] for n/v, onset three days, with associated chest pain, generalized weakness, chills, ROONEY. Symptoms were relieved with sublingual ntg. His labs were notable for trop 1.0-->1.09-->0.729, BNP 66865. He had a CT CAP showing cholelithiasis [...] as optimal treatment. Pt was transfered to [facility] on 06/05. Upon arrival EKG showed sinus [...] 07/05/2022 1100 07/05/2022 0819 07/05/2022 0544 07/04/2022 1944 BP: -- 107/66 137/73 148/79 Pulse: -- 68 61 67 Resp: -- 18 Temp: -- 97.7 ??F (36.5 ??C) 97.8 ??F (36.6 ??C) 98.1 ??F (36.7 ??C) Temp src: -- -- Oral Oral SpO2: -- 96 % 94 % 94 % Weight: 117.3 kg (258 lb 9.6 oz) -- -- -- 07/05 07 - 07/05 1859 In: 420 [P.O.:420] Out: [...] (most recent): No results found for: HGBA1C, [id number] LIPID panel result (most recent): No results [...] LESLY Ayala MD Internal Medicine Director // TECHNICIAN TECHNICIAN TECHNICIAN * Srinivas Jon MD - 07/05/2022 11:19 [...] mainly, min LE drsg and foot wear. COMPLIANCE PARALEGAL: min for memory and PS. Goals: continue to address his medical stability, orthostasis, strengthening, endurance, balance toreach mod I at dc ELOS: 07/09 [facility] PT, OT, COMPLIANCE PARALEGAL, RN. Review of System: No fever, nausea/vomiting, chest pain, or shortness of breath. Exam: BP 107/66 Pulse 68 Temp 97.7 ??F (36.5 ??C) Resp 18 Ht 5' 10 (1.778 m) Wt 117.3 kg (258 lb 9.6 oz) SpO2 96% BMI 37.11 [...] PA 667 mg at 07/05/22 0820 peg 936-odzlbnpustco-jpihxynb 1-0.2-0.2 % ophthalmic solution 1 Drop 1 [...] Code: full F/u: PCP, Aditya Lara MD [phone] Cardiology Endocrinology Srinivas Jon MD TECHNICIAN * Kamryn Browning RN - 07/04/2022 10:30 [...] checked QID. Took all meds,denies any pain. digital assistant hooked him to the peritoneal machine around 8:15PM. Needs attended to. Hourly rounding,call light within reach and low. TECHNICIAN * Filomena Sibley RN - 07/04/2022 8:36 PM CST Patient alert and oriented, timeout completed and consent given for CCPD prior to connection. CCPD Connected at 20:15. Dressing changed per protocol no signs and symptoms of infection on exit site. Report given to primary nurse,CCPD approximate end time is 06:30 next morning. TECHNICIAN * Jasmin Bradley MD - 07/04/2022 5:00 [...] TIBC, FERRITIN, Lab Results Component Value Date [id number] 1,178 06/30/2022 , No results found for: [...] BRADLEY MD [facility] [phone] TECHNICIAN * Maggie Eric LPN - 07/04/2022 4:45 [...] Patient Education on Medications Maggie Eric LPN TECHNICIAN * Srinivas Jon MD - 07/04/2022 12:09 [...] PA 667 mg at 07/04/22 1109 peg 431-upzctyayavnx-pnyxpluj 1-0.2-0.2 % ophthalmic solution 1 Drop 1 [...] Code: full F/u: PCP, Aditya Lara MD [phone] Cardiology Endocrinology Srinivas Jon MD TECHNICIAN * Conrad Dumont MD - 07/04/2022 11:20 [...] overnight was 99 ??F. PD management continues. Cvoip-qp-uydh glucoses are elevated patient is following endocrine's [...] needs are noted. Reviewed extensive records from [facility] and daughter says BIPAP settings. Assessment and [...] reflux disease without esophagitis Dystrophia unguium Dysphagia- COMPLIANCE PARALEGAL to assess and follow Cardiogenic shock Anemia [...] PA 667 mg at 07/04/22 1109 peg 788-fbffhxgzsuxu-iuxkayab 1-0.2-0.2 % ophthalmic solution 1 Drop 1 [...] male who recently has been admitted to [facility] for comprehensive rehabilitation - multiple complex medical issues will impact medical management throughout the acute inpatient rehabilitation process. Pt has a significant medical history including but not limited to CHF- EF 50%, Afib, HTN, CAD, T1DM, ESRD on PD, HLD, GERD, hyperparathyroidism, DDD, OA, gout, BEN on CPAP, who initially presented to [facility] for n/v, onset three days, with associated chest pain, generalized weakness, chills, ROONEY. Symptoms were relieved with sublingual ntg. His labs were notable for trop 1.0-->1.09-->0.729, BNP 58850. He had a CT CAP showing cholelithiasis [...] as optimal treatment. Pt was transfered to [facility] on 06/05. Upon arrival EKG showed sinus [...] (most recent): No results found for: HGBA1C, [id number] LIPID panel result (most recent): No results [...] LESLY Ayala MD Internal Medicine Director // TECHNICIAN TECHNICIAN TECHNICIAN * Tiffanie Aiken LPN - 07/04/2022 5:52 AM CST Received bedside report from Marla ROLAND and assumed care of Pt at 1845. Meds given per OCT, VS. PD running overnight, tolerated well and removed [...] Daigle This education was provided to the Patient Name of medication: All due meds The education included the following: How to identify their medication, Administering their medication, Storage of their medication, Understanding the side effects of their medication Tiffanie Aiken LPN TECHNICIAN * Jasmin Bradley MD - 07/03/2022 5:00 [...] Intake/Output Summary (Last 24 hours) at 07/03/2022 6536 Last data filed at 07/03/20222000 Gross per [...] TIBC, FERRITIN, Lab Results Component Value Date [id number] 1,178 06/30/2022 , No results found for: [...] up closely with you. JASMIN BRADLEY MD [facility] Nephrology Office [phone] TECHNICIAN * Leonela Lantigua RN - 07/03/2022 4:10 [...] one with 200units insulin. Site changed to [facility] . No compl noted to the old site. Rate was 0.8/hr. BG at 11:22 per our meter 316. At 12:16 bgwas 370 per pt meter and he gave himself 10.35units . 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 This afternoon pt c/o sore on his buttocks he had at [facility]. Picture taken and camo/mepilex applied. No c/o pain. For dinner BG per our meter 368 at 4:31pm. At 4:51pm pt meter BG 373.Rate 0.8units per hr. Pt gave 7.2 units per Omnipod. At end of shift Dialysis nurse here setting up nightly PD. TECHNICIAN TECHNICIAN TECHNICIAN * Srinivas Jon MD - 07/03/2022 1:15 [...] strengthening, endurance, balance toreach mod I at id ELOS: re-eval on Mon. Review of System: [...] PA 667 mg at 07/03/22 1215 peg 810-lqptkutopiyw-xctrggva 1-0.2-0.2 % ophthalmic solution 1 Drop 1 [...] PRN Srinivas Jon MD 1 Tablet at 07/02/223 Data: UA result (most recent): Lab Results [...] Code: full F/u: PCP, Aditya Lara MD [phone] Cardiology Endocrinology Srinivas Jon MD TECHNICIAN * Rosa Raya LPN - 07/03/2022 6:27 AM CST PD completed 519 and disconnected, patient experienced routine night during this shift. Baseline functioning, interacting with nursing, medications administered and documented per MAR, safety and fall precautions followed, call- light in reach. TECHNICIAN * Rosa Raya LPN - 07/03/2022 1:02 [...] effects of their medication Rosa Raya LPN TECHNICIAN * Filomena Sibley RN - 07/02/2022 6:54 PM CST Patient alert and oriented, timeout completed and consent given for CCPD prior to connection. CCPD Connected at 18:35. Dressing changed per protocol no signs and symptoms of infection on exit site. Report given to primary nurse,CCPD approximate end time is 05:05 next morning. TECHNICIAN * Leonela Lantigua RN - 07/02/2022 6:28 [...] nurse in room hooking up his PD. TECHNICIAN TECHNICIAN * Jasmin Bradley MD - 07/02/2022 5:00 [...] 07/02/2022 1830 Gross per 24 hour Intake 22499 ml Output 2024 ml Net 34352 ml Examination: RRR, CTA Soft, NT , [...] TIBC, FERRITIN, Lab Results Component Value Date [id number] 1,178 06/30/2022 , No results found for: FOLATE, FOLATERBC, Lab Results Component Value Date CA 9.0 07/01/2022 PO4 5.3 (H) 07/01/2022 , Lab Results Component Value Date CREAT 9.56 (H) 07/01/2022 GFR 6 (L) 07/01/2022 , No results found for: RPR, RPRTITER, No results found for: CHOLTOT, HDL, LDLCALC, LDLDIRECT, TRIGLYCERIDE, No results found for: ESR, ESRPOC, SHAWN, ANASCREEN, ANATITER, RHEUMFACTOR, CRP, CRPHS, I6UTIVSTAFY, M3VUCSUYPWR, DNAAB, DNADSAB, CCPABIGG, Lab Results Component Value [...] up closely with you. JASMIN BRADLEY MD [facility] Neph[facility] Office [phone] TECHNICIAN * Conrad Dumont MD - 07/02/2022 1:05 [...] overnight was 99 ??F. PD management continues. Zybyg-gr-jjbe glucoses are elevated patient is following endocrine's [...] crucial and indicated. 06/29/2022 - Admission to [facility] - (Admission Data below). DAPT on ASA and Plavix. Pt appears ill. Pt with PD cath and DM pump. Discussed care at length with bedside RN and RESPlead. On going aggressive medical mgt continues to optimize pt for continued success in the comprehensive rehab course. Complex needs are noted. Reviewed extensive records from [facility] and daughter says BIPAP settings. Assessment and [...] reflux disease without esophagitis Dystrophia unguium Dysphagia- COMPLIANCE PARALEGAL to assess and follow Cardiogenic shock Anemia [...] PA 667 mg at 07/02/22 1214 peg 995-jyptmobabeac-thpnxhig 1-0.2-0.2 % ophthalmic solution 1 Drop 1 [...] PA 5 mg at 06/30/22 0801 cloNIDine (HHMSIZTT-PFB-5) 0.1 mg/24 hr transdermal patch 1 Patch [...] male who recently has been admitted to [facility] for comprehensive rehabilitation - multiple complex medical issues will impact medical management throughout the acute inpatient rehabilitation process. Pt has a significant medical history including but not limited to CHF- EF 50%, Afib, HTN, CAD, T1DM, ESRD on PD, HLD, GERD, hyperparathyroidism, DDD, OA, gout, BEN on CPAP, who initially presented to [facility] for n/v, onset three days, with associated chest pain, generalized weakness, chills, ROONEY. Symptoms were relieved with sublingual ntg. His labs were notable for trop 1.0-->1.09-->0.729, BNP 06767. He had a CT CAP showing cholelithiasis [...] as optimal treatment. Pt was transfered to [facility] on 06/05. Upon arrival EKG showed sinus [...] (most recent): No results found for: HGBA1C, [id number] LIPID panel result (most recent): No results [...] LESLY Ayala MD Internal Medicine Director // TECHNICIAN TECHNICIAN TECHNICIAN * Srinivas Jon MD - 07/02/2022 11:15 [...] strengthening, endurance, balance toreach mod I at id ELOS: re-eval on Mon. Review of System: [...] PA 667 mg at 07/02/22 0753 peg 389-tlginsvyryzf-tyxgkgzf 1-0.2-0.2 % ophthalmic solution 1 Drop 1 [...] 1 mg 1 mg see admin instructions Anvi Clifford PA dextrose 50% (D50) syringe 12.5 Gram 12.5 Gram see admin instructions Avni Clifford PA dextrose 50% (D50) syringe 25 Gram 25 Gram see admin instructions Avni Cliffrod PA glucagon human recombinant (GLUCAGEN) 1 mg/mL [...] PA 5 mg at 06/30/22 0801 cloNIDine ([id number]-FGW-6) 0.1 mg/24 hr transdermal patch 1 Patch [...] Code: full F/u: PCP, Aditya Lara MD [phone] Cardiology Endocrinology Srinivas Jon MD TECHNICIAN * Filomena Sibley RN - 07/01/2022 10:17 PM CST Patient alert and oriented, timeout completed and consent given for CCPD prior to connection. CCPD Connected at 19:42. Dressing changed per protocol no signs and symptoms of infection on exit site. Report given to primary nurse,CCPD approximate end time is 06:15 next morning. TECHNICIAN * Jasmin Bradley MD - 07/01/2022 5:00 PM CST RENAL He is less dizzy and lightheaded today. BP is up today. Adjust anti-HTN. CCPD doing well w/o edema or SOB. Vitals: Vitals: 06/30/22199907/01/22 0400 07/01/22 1800 07/01/22 1900 BP: 125/72 (!) 153/81 (!) 150/80 131/75 BP Location: Right arm Right arm Right arm Right arm Patient Position (BP): Supine Supine Supine Supine Pulse: 66 67 68 68 Resp: 18 18 19 Temp: 99.3 ??F (37.4 ??C) 98.6 ??F (37 ??C) 98.6 ??F (37 ??C) 99 ??F (37.2 ??C) TempSrc: Oral Oral Oral Oral SpO2: 90% 97% 97% 99% Weight: Height: I&O: Intake/Output Summary (Last 24 hours) at 07/01/20222125 Last data filed at 07/01/2022 1200 Gross per 24 hour Intake 28426 ml Output 1413 ml Net 67237 ml Examination: RRR, CTA Soft, NT , [...] TIBC, FERRITIN, Lab Results Component Value Date [id number] 1,178 06/30/2022 , No results found for: FOLATE, FOLATERBC, Lab Results Component Value Date CA 9.0 07/01/2022 PO4 5.3 (H) 07/01/2022 , Lab Results Component Value Date CREAT 9.56 (H) 07/01/2022 GFR 6 (L) 07/01/2022 , No results found for: RPR, RPRTITER, No results found for: CHOLTOT, HDL, LDLCALC, LDLDIRECT, TRIGLYCERIDE, No results found for: ESR, ESRPOC, SHAWN, ANASCREEN, ANATITER, RHEUMFACTOR, CRP, CRPHS, [id number], A8MSKPMPYYF, DNAAB, DNADSAB, CCPABIGG, Lab Results Component Value [...] blood pressure --Losartan 12.5 mg daily -- Ivory Carver 30 mg daily -- Metoprolol 25 mg [...] BRADLEY MD [facility] [phone] TECHNICIAN * Conrad Dumont MD - 07/01/2022 11:46 [...] crucial and indicated. 06/29/2022 - Admission to [facility] - (Admission Data below). DAPT on ASA and Plavix. Pt appears ill. Pt with PD cath and DM pump. Discussed care at length with bedside RN and RESPlead. On going aggressive medical mgt continues to optimize pt for continued success in the comprehensive rehab course. Complex needs are noted. Reviewed extensive records from [facility] and daughter says BIPAP settings. Assessment and [...] reflux disease without esophagitis Dystrophia unguium Dysphagia- COMPLIANCE PARALEGAL to assess and follow Cardiogenic shock Anemia [...] mg 2 mg every 8 hours Avni Clifofrd PA 2 mg at 07/01/22 0507 calcium acetate (CALPHRON) tablet 667 mg 667 mg TID BEFORE meals Avni Clifford PA 667 mg at 07/01/22 1130 peg 838-xzmrncwbfhfi-mxfdqfnd 1-0.2-0.2 % ophthalmic solution 1 Drop 1 [...] PA 5 mg at 06/30/22 0801 cloNIDine (JJJZCQDE-PMD-6) 0.1 mg/24 hr transdermal patch 1 Patch [...] Srinivas Jon MD 1 Tablet at 06/30/22 2017 Admission Data : CC: Debility/Cardiogenic shock/HTN HPI: Juvenal Daigle is a 51 y.o. male who recently has been admitted to [facility] for comprehensive rehabilitation - multiple complex medical issues will impact medical management throughout the acute inpatient rehabilitation process. Pt has a significant medical history including but not limited to CHF- EF 50%, Afib, HTN, CAD, T1DM, ESRD on PD, HLD, GERD, hyperparathyroidism, DDD, OA, gout, BEN on CPAP, who initially presented to [facility] for n/v, onset three days, with associated chest pain, generalized weakness, chills, ROONEY. Symptoms were relieved with sublingual ntg. His labs were notable for trop 1.0-->1.09-->0.729, BNP 90753. He had a CT CAP showing cholelithiasis [...] as optimal treatment. Pt was transfered to [facility] on 06/05. Upon arrival EKG showed sinus [...] % 90 % 95 % -- 07/01 0700 - 07/01 1859 In: 120 [P.O.:120] Out: - General alert, [...] (most recent): No results found for: HGBA1C, [id number] LIPID panel result (most recent): No results [...] LESLY Ayala MD Internal Medicine Director // TECHNICIAN TECHNICIAN TECHNICIAN * Srinivas Jon MD - 07/01/2022 10:59 [...] PA 667 mg at 07/01/22 0810 peg 198-izgqoattghar-zzjxxocm 1-0.2-0.2 % ophthalmic solution 1 Drop 1 [...] PA 5 mg at 06/30/22 0801 cloNIDine (LVAFIYGO-FLD-9) 0.1 mg/24 hr transdermal patch 1 Patch 1 Patch every 7 days Avni Clifford PA 1 Patch at 06/30/22 0547 [COMPLETED] New Admission Meds - retrieve upon admission every 4 hours Avni Clifford PA Given at 06/29/22 1600 melatonin tablet 6 mg 6 mg daily BEDTIME Avni Clifford PA 6 mg at 06/30/22 2017 acetaminophen (TYLENOL) tablet 650 mg 650 mg [...] Code: full F/u: PCP, Aditya Lara MD [phone] Cardiology Endocrinology Srinivas Jon MD TECHNICIAN * Rosa Raya LPN - 07/01/2022 6:09 [...] / fall precautions followed, call-light in reach. TECHNICIAN * Rosa Raya LPN - 07/01/2022 12:44 [...] effects of their medication Rosa Raya LPN TECHNICIAN * Filomena Sibley RN - 06/30/2022 10:24 PM CST Patient alert and oriented, timeout completed and consent given for CCPD prior to connection. CCPD Connected at 22:05. Dressing changed per protocol no signs and symptoms of infection on exit site. Report given to primary nurse,CCPD approximate end time is 08:35 next morning. TECHNICIAN * Jasmin Bradley MD - 06/30/2022 5:00 [...] 06/30/2022 2205 Gross per 24 hour Intake 81876 ml Output 1588 ml Net 72177 ml Examination: RRR, CTA Soft, NT , [...] TIBC, FERRITIN, Lab Results Component Value Date [id number] 1,178 06/30/2022 , No results found for: FOLATE, FOLATERBC, Lab Results Component Value Date CA 9.1 06/30/2022 , Lab Results Component Value Date CREAT 9.78 (H) 06/30/2022 GFR 6 (L) 06/30/2022 , No results found for: RPR, RPRTITER, No results found for: CHOLTOT, HDL, LDLCALC, LDLDIRECT, TRIGLYCERIDE, No results found for: ESR, ESRPOC, SHAWN, ANASCREEN, ANATITER, RHEUMFACTOR, CRP, CRPHS, H1SEDFDENLX, D3SYUECZBME, DNAAB, DNADSAB, CCPABIGG, Lab Results Component Value [...] blood pressure --Losartan 12.5 mg daily -- Ivory Carver 30 mg daily -- Metoprolol 25 mg [...] up closely with you. JASMIN BRADLEY MD [facility] of Nephrology Office [phone] TECHNICIAN * Conrad Dumont MD - 06/30/2022 11:42 [...] crucial and indicated. 06/29/2022 - Admission to [facility] - (Admission Data below). DAPT on ASA and Plavix. Pt appears ill. Pt with PD cath and DM pump. Discussed care at length with bedside RN and RESPlead. On going aggressive medical mgt continues to optimize pt for continued success in the comprehensive rehab course. Complex needs are noted. Reviewed extensive records from [facility] and daughter says BIPAP settings. Assessment and [...] reflux disease without esophagitis Dystrophia unguium Dysphagia- COMPLIANCE PARALEGAL to assess and follow Cardiogenic shock Anemia [...] PA 667 mg at 06/30/22 0806 peg 073-uyjzdpyfzqvo-hvxnhtgj 1-0.2-0.2 % ophthalmic solution 1 Drop 1 [...] 30 mL 30 mL every 4hours PRN Avin Clifford PA calcium as carbonate (TUMS) 500 mg (200 mg elemental) chewable tablet 200 mg 200 mg every 4 hours PRN Avni Clifford PA folic acid-Vit B6-Vit B12 (FOLTX) per tablet 1 Tablet 1 Tablet daily Avni Clifford PA 1 Tablet at 06/30/22 0801 dextrose 5% - sodium chloride 0.9% infusion [...] Avni Clifford PA 1.5 Units/hr at 06/30/22 08 insulin lispro (HumaLOG) variable dose injection QID WITH meals and HS Avni Clifford PA colchicine (COLCRYS) tablet 0.6 mg 0.6 mg every 48 hours Avni Clifford PA 0.6 mg at 06/30/22 0806 doxycycline monohydrate (MONODOX) capsule 50 mg 50 mg every 12 hours (2 times daily) Avni Clifford PA 50 mg at 06/30/22 0801 furosemide (LASIX) tablet 80 mg 80 mg [...] PA 5 mg at 06/30/22 0801 cloNIDine (UPGEGEJU-UXB-3) 0.1 mg/24 hr transdermal patch 1 Patch [...] male who recently has been admitted to [facility] for comprehensive rehabilitation - multiple complex medical issues will impact medical management throughout the acute inpatient rehabilitation process. Pt has a significant medical history including but not limited to CHF- EF 50%, Afib, HTN, CAD, T1DM, ESRD on PD, HLD, GERD, hyperparathyroidism, DDD, OA, gout, BEN on CPAP, who initially presented to [facility] for n/v, onset three days, with associated chest pain, generalized weakness, chills, ROONEY. Symptoms were relieved with sublingual ntg. His labs were notable for trop 1.0-->1.09-->0.729, BNP 27850. He had a CT CAP showing cholelithiasis [...] as optimal treatment. Pt was transfered to [facility] on 06/05. Upon arrival EKG showed sinus [...] (most recent): No results found for: HGBA1C, [id number] LIPID panel result (most recent): No results [...] LESLY Ayala MD Internal Medicine Director // TECHNICIAN TECHNICIAN TECHNICIAN * Chirag Pan, [facility] - 06/30/2022 10:06 AM CST [facility] RT Assess and Treat Worksheet and Note Admitting Diagnosis/Pulmonary History:Cardiogenic shock, BEN, CHF Home Regimen: none Home Oxygen/CPAP/BiPap: Bipap / Please Call Respiratory therapy at [phone] if you have any questions or a change in patient conditions. # Date Extrusion Line Operator Respiratory Orders Comments 1 06/29/22 RHB Bipap / 2 3 4 5 6 7 Airway Clearance CXR # WC MW BH6 MDI AI date CXR comments A I C Dx P 1 2 3 4 5 6 7 Bronchodilator Therapy # BS RR WOB O2 PH SH PEFR% (for asthma) Score Class 1 2 3 4 5 6 7 Post Discharge Education Plan Pt response: Referrals [id number] - Referral to Smoke Cessation [id number] - Referral to Pulmonary Rehab General Ed [id number] - JESUS Smoking Cessation [id number] - JESUS Nebulizer Ed [id number] - JESUS MDI Ed [id number] - JESUS DPI Ed [id number] - JESUS Spiriva HandiHaler Ed Disease Ed [id number] - JESUS Pneumonia Ed [id number] - JESUS Asthma Ed [id number] - JESUS COPD Ed CXR A = [...] Score PH = Score per Pulmonary History [place] = MDI independent Score WOB = Score per Work of Breathing AI = Acapella independent Score RR = Score per Respiratory Rate Score O2 = Score per Oxygen requirement Score BS = Score per Breathsounds Score SH = Score per Smoking History TECHNICIAN * Chirag Pan RCP - 06/30/2022 10:05 AM CST Images from the original note were not included. Respiratory Therapy Assess and Treat Protocol- [facility] ORDERS ARE ENTERED ???PER PROTOCOL?? Enter the protocol in the patient???s electronic health record using Q Design: .rtassessandtreatprotocol Respiratory Therapy orders: Requires a written order for Assess and Treat Protocol (RT41) or IP Consult to Respiratory Therapy (CON21) by the physician or the physician marbleizing machine tender. Oxygen desaturation studies (walk studies) must be [...] PRN 2 puffs Albuterol 2.5mg Albuterol Class /-12 *Reassess in 24 hrs * Reassess in 96 hrs after initial assessment. *If patient condition worsens then reassess q6 or QID and q6 PRN 2puffs Albuterol 2.5mg Albuterol Class -18 *Reassess in 24 hrs * Reassess in 96 hrs after initial assessment. *If patient condition worsens then reassess q4 and q4 PRN 2 puffs Albuterol 2.5 Mg Albuterol Class *Reassess in 24 hrs * Reassess in 96 hrs after initial assessment. *If patient condition worsens then reassess CONSULT PHYSICIAN for Escalation of Care Mode of Delivery The mode of medication delivery is determined by patient ability or patient request for a specific delivery device and ordered as MDI or Nebulizer. [...] (CON21) by the physician or the physician marbleizing machine tender. 2. Only licensed Respiratory Therapists will be [...] home regimen medications as listed in their SURVEY RESEARCH PROFESSOR medication list as appropriate. Patients in [facility] [...] not indicated for patients transitioning to a intermediate facility, rehabilitation facility, or who have not required oxygen since admission unless otherwise specified by the physician. ASSESS AND TREAT PROTOCOL-ADULT BRONCHODILATION PROCEDURE Indications: Bronchospasm/wheezing (Reactive Airway Disease, Asthma, Emphysema, Chronic Bronchitis, Bronchiolitis) Current Home Bronchodilator usage including short-acting, long-acting, inhaled corticosteroid, anticholinergic, and combination respiratory medications. Other indications stated in the [place] [employer]???s Clinical Practice Guidelines, [...] the patient is being managed by their Plate Take Out Worker. Determine Mode of Delivery using chart below. [...] MDI 4)Considerations Review patient???s Prior to Admission (SURVEY RESEARCH PROFESSOR) medication list. The Respiratory Therapist will consider ordering any of the following meds based on the patient???s home regimen: Short and long-acting bronchodilators, inhaled corticosteroids, anticholinergics, and combination respiratory medications. Use of the preferred [facility] formulary equivalent should be ordered per Assess and Treat Protocol for use throughout the patients hospital stay. Patients diagnosed with a chronic lung disease, such as COPD or Asthma, will be evaluated for the benefit of a controller medication therapy (long-acting bronchodilators, inhaled corticosteroids, anticholinergics, and combination respiratory medications) if not already on the SURVEY RESEARCH PROFESSOR medication list. The Respiratory Therapist will contact the attending physician if a controller therapy may benefit the patient. Xopenex (Levalbuterol) Orders will be followed as below: See Pharmacy Policy, Section: APPROVED THERAPEUTIC INTERCHANGES FOR [facility] Title: Beta Agonists Patients taking home regimen [...] Nursing Leadership, Pharmacy & Therapeutics CommitteeDate: 10/2017 TECHNICIAN * Srinivas Jon MD - 06/30/2022 9:28 [...] PA 667 mg at 06/30/22 0806 peg 363-bjwmnbvriydx-cztjnego 1-0.2-0.2 % ophthalmic solution 1 Drop 1 [...] Avni Clifford PA 75 mg at 06/30/22 08 nitroglycerin (NITROSTAT) tablet 0.4 mg 0.4 mg [...] Avni Clifford PA 1.5 Units/hr at 06/30/22 08 insulin lispro (HumaLOG) variable dose injection [...] Avni Clifford PA 10 mg at 06/30/22 0801 ranolazine ER (RANEXA) SR 12 hour tablet 500 mg 500 mg every 12 hours (2 times daily) Avni Clifford PA 500 mg at 06/30/22 0801 [Held by Provider] hydrALAZINE (APRESOLINE) tablet 100 mg 100 mg every 8 hours Avni Clifford PA cetirizine (ZyrTEC) tablet 5 mg 5 mg daily PRN Avni Clifford PA 5 mg at 06/30/22 0801 cloNIDine (EKJRVYEB-SEB-6) 0.1 mg/24 hr transdermal patch 1 Patch [...] (most recent): No results found for: GLUCOSEF, FONOTKB0SK, GLUCOSE Coagulation result (most recent): No results [...] Code: full F/u: PCP, Aditya Lara MD [phone] Cardiology Endocrinology Srinivas Jon MD TECHNICIAN * Aviva Alfaro RN - 06/30/2022 6:04 AM CST Patient experienced routine night on this 12 hour shift. Received report. Pt was resting in bed. Complaints of pain everywhere. Pt had already received Tylenol, which he stated was not helping. Notified Dr. Jon. Orders received for [place]. Last BM 06-29. Pt is oliguric. Pt connected to peritoneal dialysis by banquet pilot, to be disconnected around 0830 in the [...] following: Indication for use Aviva Alfaro RN TECHNICIAN * Filomena Sibley RN - 06/29/2022 10:05 PM CST Patient alert and oriented, timeout completed and consent given for CCPD prior to connection. CCPD Connected at 21:50. Dressing changed per protocol no signs and symptoms of infection on exit site. Report given to primary nurse,CCPD approximate end time is 08:20 next morning. TECHNICIAN * Maggie Eric LPN - 06/29/2022 6:18 PM CST 9.6u self administered via insulin pump this evening after blood glucose reading of 265. TECHNICIAN * Maggie Eric LPN - 06/29/2022 3:48 PM CST UNDRESS AND ASSESS FOR ALL ADMISSIONS Remove all existing dressings and assess all wounds upon admission (unless instructed by physician). Undress and Assess performed by: Maggie Eric LPN bedside Nurse and Brenden Bunk RN coworker Patient does have skin breakdown. [...] injury, consult physician. 7. Is a medical lead in place? no If yes, remove device/brace/splint to check skin underneath, obtain provider order if necessary. 8. Does the patient have a wound VAC (negative pressure wound therapy)? no If yes, please consult wound care services and follow facility process. 9. Does the patient have an ostomy? no If yes, please consult wound care services. TECHNICIAN documented in this encounter H&P Notes * [...] Timeline (including subjective): 06/29/2022 - Admission to [facility] - (Admission Data below). DAPT on ASA and Plavix. Pt appears ill. Pt with PD cath and DM pump. Discussed care at length with bedside RN and RESPlead. On going aggressive medical mgt continues to optimize pt for continued success in the comprehensive rehab course. Complex needs are noted. Reviewed extensive records from [facility] and daughter says BIPAP settings. Assessment and [...] reflux disease without esophagitis Dystrophia unguium Dysphagia- COMPLIANCE PARALEGAL to assess and follow Cardiogenic shock Anemia [...] TID BEFORE meals Avni Clifford PA peg [id number] 1-0.2-0.2 % ophthalmic solution 1 Drop 1 [...] (LIPITOR) tablet 80 mg 80 mg daily Anvi Clifford PA [START ON 06/30/2022] clopidogreL (PLAVIX) [...] Avni Clifford PA [START ON 06/30/2022] cloNIDine ([id number]-7) 0.1 mg/24 hr transdermal patch 1 Patch 1 Patch every 7 days Avni Clifford PA New Admission Meds - retrieve upon admission every 4 hours Avni Clifford PA melatonin tablet 6 mg 6 mg daily BEDTIME Avni Clifford PA Admission Data : CC: Debility/Cardiogenic shock/HTN HPI: Juvenal Daigle is a 51 y.o. male who recently has been admitted to [facility] for comprehensive rehabilitation - multiple complex medical issues will impact medical management throughout the acute inpatient rehabilitation process. Pt has a significant medical history including but not limited to CHF- EF 50%, Afib, HTN, CAD, T1DM, ESRD on PD, HLD, GERD, hyperparathyroidism, DDD, OA, gout, BEN on CPAP, who initially presented to [facility] for n/v, onset three days, with associated chest pain, generalized weakness, chills, ROONEY. Symptoms were relieved with sublingual ntg. His labs were notable for trop 1.0-->1.09-->0.729, BNP 898[address]. He had a CT CAP showing cholelithiasis [...] as optimal treatment. Pt was transfered to [facility] on 06/05. Upon arrival EKG showed sinus [...] (most recent): No results found for: HGBA1C, [id number] LIPID panel result (most recent): No results [...] that may have occurred. Conrad Dumont MD TECHNICIAN TECHNICIAN TECHNICIAN documented in this encounter Consult Notes * [...] BEN on CPAP who initially presented to [facility] for n/v and chest pain. Per Pt he had 3 days of generalized weakness, chills, ROONEY, n/v, chest pain relieved by sublingual ntg. His labs were notable for trop 1.0-->1.09-->0.729, BNP 06482. He had a CT CAP showing cholelithiasis [...] as optimal treatment. Pt was transfered to [facility] on 06/05. Upon arrival EKG showed sinus [...] medically appropriate, he was tr ansferred to [facility] for comprehensive rehabilitation on 06/29/22. Functional [...] PA 667 mg at 06/29/22 1654 peg [id number] 1-0.2-0.2 % ophthalmic solution 1 Drop 1 [...] inhalation solution 2.5 mg 2.5 mg resp, every 6 hours PRN Avni Clifford PA bisacodyL (DULCOLAX) [...] daily Avni Clifford PA 1 Tablet at 06/29/22 1654 dextrose 5% - sodium chloride 0.9% infusion [...] apart Avni Clifford PA 80 mg at 06/29/22 1654 [START ON 06/30/2022] ezetimibe (ZETIA) tablet 10 [...] Avni Clifford PA [START ON 06/30/2022] cloNIDine (GEYXPWBG-WEG-6) 0.1 mg/24 hr transdermal patch 1 Patch 1 Patch every 7 days Avni Clifford PA [COMPLETED] New Admission Meds - retrieve upon admission every 4 hours Avni Clifford PA Given at 06/29/22 1600 melatonin tablet 6 mg 6 mg daily BEDTIME Avni Clifford PA 6 mg at 06/29/222116 acetaminophen (TYLENOL) tablet 650 mg 650 mg every 6 hours PRN Srinivas Jon MD HYDROcodone-acetaminophen (NORCO) 5-325 mg per tablet 1 Tablet 1 Tablet every 6 hours PRN Srinivas Jon MD 1 Tablet at 06/29/222209 Past Medical History: Diagnosis Date Amplified musculoskeletal [...] found for: TSH, TSHULTRA, THYROIDSTIM, T3, T3FREE, J2EUPTLR, T4, T4FREE, FT4E, TPO, THROIDAB, THYROIDMI No results found for: [id number] No results found for: SWOX923, VITD25, DYPV54COA4, TIWJ00FNI5, JLSJ38DOCZ, 25OHVITD No results found for: HGBA1C, [id number] No results found for: PHUA, SGUR, URINELEUKOC, [...] be performed under the direction of a production foreman. CAD, s/p NSTEMI, s/p PCI. Cont asa, [...] Code: full F/u: PCP, Aditya Lara MD [phone] Cardiology Endocrinology Barriers to immediate discharge to [...] Total time spent on this evaluation, examination, diet counselor with patient and/or family/caregivers, determination documentation and initiation of plan of care was more than 70 minutes. Srinivas Jon MD TECHNICIAN * Jasmin Bradely MD - 06/29/2022 5:00 PM CST Renal Consult Note Patient Name: Juvenal Diagle CC PCP: Aditya Castro MD Reason for [...] BEN on CPAP, who initially presented to [facility] for nausea and vomiting for three days, associated chest pain, generalized weakness, chills, ROONEY. Symptoms were relieved with sublingual NTG. His labs were notable for elevated troponin 1.0-->1.09-->0.729, BNP 74890. He had a CT C/A/P showing cholelithiasis [...] as optimal treatment. He was transfered to [facility] on 06/05/22. Upon arrival EKG showed sinus [...] been deemed medically stable and transferred to [facility] for comprehensive inpatient rehab. 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 isosorbide mononitrate (IMDUR) 60 mg Extended Release 24 hour tablet Yes No Sig: Take 60 mg by mouth daily plastics fabricator and assembler. ketoconazole (NIZORAL) 2 % Shampoo Yes No [...] blood pressure --Losartan 12.5 mg daily -- Ivory Carver 30 mg daily -- Metoprolol 25 mg [...] up closely with you. JASMIN BRADLEY MD [facility] Nephrology Office [phone] TECHNICIAN documented in this encounter Miscellaneous Notes [...] do not leave alone in the bathroom. TECHNICIAN * Care Plan - Leonela Lantigua RN [...] do not leave alone in the bathroom. TECHNICIAN * Care Plan - Katerina Griffith RN [...] because of medications (i.e. - BP meds, CV/SINGING TELEGRAM PERFORMER meds, seizure meds, diuretics, pain meds, psych [...] discharge or maintain baseline function Outcome: Progressing TECHNICIAN * Care Plan - Leonela Lantigua RN [...] do not leave alone in the bathroom. TECHNICIAN * Care Plan - Rosa Raya LPN - 07/02/2022 9:36 PM CST Day 1 - Current ([facility]: Adult and Obstetrics) Patient, family, or [...] because of medications (i.e. - BP meds, CV/SINGING TELEGRAM PERFORMER meds, seizure meds, diuretics, pain meds, psych [...] discharge or maintain baseline function Outcome: Progressing TECHNICIAN * Care Plan - Leonela Lantigua RN [...] do not leave alone in the bathroom. TECHNICIAN * Care Plan - Deep Denson RN - 07/02/2022 7:50 AM CST Patient Education on Medications Education provided Re: Juvenal Daigle This education was provided to the patient Name of medication: all meds that were given The education included the following: How to identify their medication, Administering their medication Deep Denson, LUAN Patient has had no falls at this [...] was started on peritoneal dialysis by the [facility] dialysis nurse during the evening. Pt appears to be tolerating well at this time. No acute distress evident. Medicated for pain as needed this shift. TECHNICIAN * Care Plan - Elver RosaMARK ANTHONY garrett - 06/30/2022 8:05 PM CST Day 1 - Current ([facility]: Adult and Obstetrics) Patient, family, or [...] because of medications (i.e. - BP meds, CV/SINGING TELEGRAM PERFORMER meds, seizure meds, diuretics, pain meds, psych [...] nausea and vomiting as needed Outcome: Progressing TECHNICIAN * Initial Assessments - Abelardo Weber, GAVIN - 06/30/2022 4:14 PM AIR TECHNICIAN CLINICAL DIETITIAN ASSESSMENT NOTE [facility] Juvenal Daigle 51 y.o. male A: Pt reports a [...] 37.09 kg/m??. IBW/kg (Calculated) Female: 68.5 kg (06/29/22 1800) IBW/kg (Calculated) Male: 73 kg (06/29/22 1800) [...] (267 lb) Last Bowel Movement (mm/dd/yyyy): 06/28/22 (06/30/22 0900) Rex Score: 21 (06/30/22 09) Skin: no significant wounds noted See Flowsheet for more wound documentation Edema (per provider private investigator surveillance charting): +LE Pert Meds: calphron, foltx, furosemide, [...] 05:46 AM No results found for: HGBA1C, [id number] No results found for: CHOLTOT, HDL, LDLCALC, LDLDIRECT, TRIGLYCERIDE D: Increased protein needs r/t altered absorption or metabolism of nutrients as evidenced by ESRD on PD Nutrition Risk: mild d/t good appetite and pt reporting understanding diet M/E: Monitor nutrition, weight, lab values, and skin. Follow up based on nutrition risk or as needed. Abelardo Weber RD, LD TECHNICIAN * Care Plan - Aviva Alfaro RN [...] Activity intolerance, Potential/Actual Musculoskeletal Interventions: Mobility promoted [place] in ADL???s promoted Adaptive equipment provided Slow, progressive position changes TECHNICIAN documented in this encounter Plan of Treatment Not on file documented as of this encounter Procedures Procedure Name Priority Date/Time Associated Diagnosis Comments EKG 12-LEAD Routine 07/20/2022 1:12 PM AIR TECHNICIAN POC GLUCOSE Routine 07/08/2022 12:12 PM AIR TECHNICIAN POC GLUCOSE Routine 07/08/2022 7:56 AM AIR TECHNICIAN CBC WITH DIFFERENTIAL Routine 07/08/2022 4:53 AM AIR TECHNICIAN C-REACTIVE PROTEIN Routine 07/08/2022 4: 53 AM AIR TECHNICIAN BRAIN NATRIURETIC PEPTIDE, BNP OR PROBNP Routine 07/08/2022 4:53 AM AIR TECHNICIAN MAGNESIUM LEVEL Routine 07/08/2022 4:53 AM AIR TECHNICIAN COMPREHENSIVE METABOLIC PANEL Routine 07/08/2022 4:53 AM AIR TECHNICIAN POC GLUCOSE Routine 07/07/2022 8:27 PM AIR TECHNICIAN POC GLUCOSE Routine 07/07/2022 4:58 PM AIR TECHNICIAN POC GLUCOSE Routine 07/07/2022 11:38 AM AIR TECHNICIAN POC GLUCOSE Routine 07/07/2022 7:29 AM AIR TECHNICIAN POC GLUCOSE Routine 07/06/2022 8:10 PM AIR TECHNICIAN POC GLUCOSE Routine 07/06/2022 4:44 PM AIR TECHNICIAN POC GLUCOSE Routine 07/06/2022 12:21 PM AIR TECHNICIAN POC GLUCOSE Routine 07/06/2022 7:21 AM AIR TECHNICIAN POC GLUCOSE Routine 07/05/2022 8:19 PM AIR TECHNICIAN POC GLUCOSE Routine 07/05/2022 4:26 PM AIR TECHNICIAN POC GLUCOSE Routine 07/05/2022 11:30 AM AIR TECHNICIAN POC GLUCOSE Routine 07/05/2022 7:31 AM AIR TECHNICIAN POC GLUCOSE Routine 07/04/2022 9:01 PM AIR TECHNICIAN POC GLUCOSE Routine 07/04/2022 4:49 PM AIR TECHNICIAN POC GLUCOSE Routine 07/04/2022 11:32 AM AIR TECHNICIAN CBC WITH DIFFERENTIAL Routine 07/04/2022 11:09 AM AIR TECHNICIAN C-REACTIVE PROTEIN Routine 07/04/2022 11 :09 AM AIR TECHNICIAN BRAIN NATRIURETIC PEPTIDE, BNP OR PROBNP Routine 07/04/2022 11:09 AM AIR TECHNICIAN MAGNESIUM LEVEL Routine 07/04/2022 11:09 AM AIR TECHNICIAN COMPREHENSIVE METABOLIC PANEL Routine 07/04/2022 11:09 AM AIR TECHNICIAN POC GLUCOSE Routine 07/04/2022 7:17 AM AIR TECHNICIAN POC GLUCOSE Routine 07/03/2022 8:09 PM AIR TECHNICIAN POC GLUCOSE Routine 07/03/2022 4:31 PM AIR TECHNICIAN POC GLUCOSE Routine 07/03/2022 11:22 AM AIR TECHNICIAN XR CHEST PA OR AP 1 VW Routine 9:35 AM AIR TECHNICIAN POC GLUCOSE Routine 07/03/2022 7:35 AM AIR TECHNICIAN CBC WITH DIFFERENTIAL Routine 07/03/2022 5:44 AM AIR TECHNICIAN C-REACTIVE PROTEIN Routine 07/03/2022 5: 44 AM AIR TECHNICIAN BRAIN NATRIURETIC PEPTIDE, BNP OR PROBNP Routine 07/03/2022 5:44 AM AIR TECHNICIAN MAGNESIUM LEVEL Routine 07/03/2022 5:44 AM AIR TECHNICIAN CK Routine 07/03/2022 5:44 AM AIR TECHNICIAN COMPREHENSIVE METABOLIC PANEL Routine 07/03/2022 5:44 AM AIR TECHNICIAN POC GLUCOSE Routine 07/02/2022 7:51 PM AIR TECHNICIAN POC GLUCOSE Routine 07/02/2022 4:31 PM AIR TECHNICIAN POC GLUCOSE Routine 07/02/2022 12:06 PM AIR TECHNICIAN POC GLUCOSE Routine 07/02/2022 7:37 AM AIR TECHNICIAN POC GLUCOSE Routine 07/01/2022 7:46 PM AIR TECHNICIAN POC GLUCOSE Routine 07/01/2022 5:00 PM AIR TECHNICIAN POC GLUCOSE Routine 07/01/2022 12:11 PM AIR TECHNICIAN POC GLUCOSE Routine 07/01/2022 7:21 AM AIR TECHNICIAN CBC WITH DIFFERENTIAL Routine 07/01/2022 5:19 AM AIR TECHNICIAN URIC ACID Routine 07/01/2022 5:19 AM AIR TECHNICIAN RENAL FUNCTION PANEL Routine 07/01/2022 5:19 AM AIR TECHNICIAN POC GLUCOSE Routine 06/30/2022 8:10 PM AIR TECHNICIAN POC GLUCOSE Routine 06/30/2022 4:31 PM AIR TECHNICIAN URINALYSIS W/REFLEX MICROSCOPIC Routine 06/30/2022 2:55 PM AIR TECHNICIAN URINE CULTURE Routine 06/30/2022 2:55 PM AIR TECHNICIAN POC GLUCOSE Routine 06/30/2022 11:42 AM AIR TECHNICIAN POC GLUCOSE Routine 06/30/2022 7:03 AM AIR TECHNICIAN HEPATITIS B SURFACE AB, QUANT Routine 06/30/2022 5:46 AM AIR TECHNICIAN TSH REFLEXIVE Routine 06/30/2022 5:46 AM AIR TECHNICIAN HEPATITIS B SURFACE ANTIGEN Routine 06/30/2022 5:46 AM AIR TECHNICIAN CBC WITH DIFFERENTIAL Routine 06/30/2022 5:46 AM AIR TECHNICIAN VITAMIN D 25 HYDROXY Routine 06/30/2022 5:46 AM AIR TECHNICIAN VITAMIN B12 LEVEL Routine 06/30/2022 5:4 6 AM AIR TECHNICIAN COMPREHENSIVE METABOLIC PANEL Routine 06/30/2022 5:46 AM AIR TECHNICIAN POC GLUCOSE Routine 06/29/2022 9:52 PM AIR TECHNICIAN POC GLUCOSE Routine 06/29/2022 4:28 PM AIR TECHNICIAN documented in this encounter Results * EKG 12-LEAD (07/20/2022 1:12 PM AIR TECHNICIAN) us Avni Clifford [facility] ECG ORDERABLES Final Result Performing Organization Address City/[facility]/ZIP Co de Phone Number [facility] [address] [place] [address] * (ABNORMAL) POC GLUCOSE (07/08/2022 12:12 PM AIR TECHNICIAN) GLUCOSE POC 272(H) 74 - 99 mg/dL 07/08/2022 12:12 PM AIR TECHNICIAN [facility] SPECIMEN SOURCE, GLUCOSE POC Whole Blood 07/08/2022 12:12 PM AIR TECHNICIAN [facility] COMMENT, GLU POC Notified RN/MD 07/08/2022 12:12 PM AIR TECHNICIAN [facility] Blood, whole 07/08/2022 12:1 2 PM AIR TECHNICIAN 07/08/2022 12:21 PM AIR TECHNICIAN us Srinivas Jon MD POINT OF CARE TESTING Final Resu lt Performing Organization Address [facility]/ZIP Co de Phone Number [facility] CLIA # [id number] [place] [address] * POC GLUCOSE (07/08/2022 7:56 AM AIR TECHNICIAN) GLUCOSE POC 78 74 - 99 mg/dL 07/08/2022 7:56 AM AIR TECHNICIAN [facility] SPECIMEN SOURCE, GLUCOSE POC Whole Blood 07/08/2022 7:56 AM AIR TECHNICIAN [facility] Blood, whole 07/08/2022 7:56 AM AIR TECHNICIAN 07/08/2022 8:06 AM AIR TECHNICIAN us Srinivas Jon MD POINT OF CARE TESTING Final Resu lt Performing Organization Address [facility]/ZIP Co de Phone Number [facility] CLIA # [id number] [place] [address] * (ABNORMAL) BRAIN NATRIURETIC PEPTIDE, BNP OR PROBNP (07/08/2022 4:53 AM AIR TECHNICIAN) PROBNP, N TERMINAL 7,021(H) <124 pg/mL 07/08/2022 10:19 AM AIR TECHNICIAN [facility] [employer] [facility] Comment: Reference values for screening purposes based on color shop helper's recommendation: Patients less than 75 years: <125 [...] Blood Venipuncture / Unknown 07/08/2022 4:53 AM AIR TECHNICIAN 07/08/2022 9:49 AM AIR TECHNICIAN [employer] CHEMISTRY ORDERABLES F inal Result [facility] [employer] [facility] CLIA# [id number] [address] [place] [address] * C-REACTIVE PROTEIN (07/08/2022 4:53 AM AIR TECHNICIAN) Pathologist [facility] CRP <3.0 <5.0 mg/L 07/08/2022 10:19 AM AIR TECHNICIAN [facility] [employer] [facility] Blood Venipuncture / Unknown 07/08/2022 4:53 AM AIR TECHNICIAN 07/08/2022 9:49 AM AIR TECHNICIAN [employer] CHEMISTRY ORDERABLES F inal Result [facility] [employer] [facility] CLIA# [id number] [address] [place] [address] * MAGNESIUM LEVEL (07/08/2022 4:53 AM AIR TECHNICIAN) MAGNESIUM 1.7 1.6 - 2.6 mg/dL 07/08/2022 10:19 AM [facility] [employer] SERVICES [facility] Blood Venipuncture / Unknown 07/08/2022 4:53 AM AIR TECHNICIAN 07/08/2022 9:49 AM AIR TECHNICIAN Avni Clifford [facility] CHEMISTRY ORDERABLES F inal Result [facility] [employer] SERVICES [facility] CLIA# [id number] [address] [place] [address] * (ABNORMAL) COMPREHENSIVE METABOLIC PANEL (07/08/2022 4:53 AM AIR TECHNICIAN) SODIUM 139 136 - 145 mmol/L 07/08/2022 10:21 AM [facility] [employer] LABORATORY SERVICES [facility]. [facility] POTASSIUM 3.6 3.5 - 5.0 mmol/L 07/08/2022 10:21 AM [facility] [employer] [facility]. [place] CHLORIDE 99 98 - 107 mmol/L 07/08/2022 10:21 AM [facility] [employer] SERVICES - . [place] CO2 28 22 - 29 mmol/L 07/08/2022 10:21 AM [facility] [employer] [facility] - . [place] CALCIUM 9.4 8.6 - 10.2 mg/dL 07/08/2022 10:21 AM [facility] [employer] LABORATORY SERVICES [facility]. [place] BUN 40(H) 6 - 20 mg/dL 07/08/2022 10:21 AM [facility] [employer] SERVICES - [facility] [place] CREATININE 6.94(H) 0.67 - 1.17 mg/dL 07/08/2022 10:21 AM [facility] [employer] LABORATORY SERVICES - . [place] GLUCOSE 82 74 - 99 mg/dL 07/08/2022 10:21 AM [facility] [employer] SERVICES [facility]. [facility] TOTAL PROTEIN 6.1(L) 6.7 - 8.6 g/dL 07/08/2022 10:21 AM [facility] [employer] SERVICES - . [facility] ALBUMIN 3.2(L) 3.5 - 5.2 g/dL 07/08/2022 10:21 AM [facility] BILIRUBIN TOTAL 0.3 0.3 - 1.2 mg/dL 07/08/2022 10:21 AM [facility] ALKALINE PHOSPHATASE 99 40 - 129 U/L 07/08/2022 10:21 AM [facility] AST 49(H) <41 U/L 07/08/2022 10:21 AM [facility] ALT 54(H) <42 U/L 07/08/2022 10:21 AM [facility] GFR 9(L) >=60 mL/min/1.7 3 sq meter 07/08/2022 10:21 AM [facility] Comment:eGFR calculated with 2020 CKD-EPI equation. Vegetarian diet, extremely high or low muscle mass, and may affect results. Cystatin C with Glomerular Filtration Rate is a suitable alternative for these patients. ANION GAP 12 8 - 16 mmol/L 07/08/2022 10:21 AM [facility] Blood Venipuncture / Unknown 07/08/2022 4:53 AM AIR TECHNICIAN 07/08/2022 9:49 AM [facility] - 07/08/2022 10:21 AM AIR TECHNICIAN Samples containing indocyanine green cause interferences on Total and/or Direct Bilirubin and must not be measured. Avni Clifford [facility] CHEMISTRY ORDERABLES F inal Result [facility]# [id number] [address] [facility] [place] [address] * (ABNORMAL) CBC WITH DIFFERENTIAL (07/08/2022 4:53 AM AIR TECHNICIAN) WBC 3.6(L) 4.0 - 9.8 K/uL 07/08/2022 10:12 AM [facility] RBC 3.03(L) 4.50 - 5.40 M/uL 07/08/2022 10:12 AM [facility] HEMOGLOBIN 9.2(L) 13.6 - 16.5 g/dL 07/08/2022 10:12 AM [employer] LABORATORY SERVICES - [facility] [place] HEMATOCRIT 28.5(L) 40.0 - 48.0 % 07/08/2022 10:12 AM [employer] [facility] - [facility] [place] MCV 94.1 82.0 - 99.0 fL 07/08/2022 10:12 AM [employer] [facility] - [facility] [place] MCH 30.4 27.2 - 32.6 pg 07/08/2022 10:12 AM [employer] [facility] - [facility] [place] MCHC 32.3 31.5 - 35.5 g/dL 07/08/2022 10:12 AM [employer] [facility] - [facility] [place] RDW 15.5(H) 11.5 - 14.5 % 07/08/2022 10:12 AM [employer] [facility] - [facility] [place] RDW-STDEV 53.3(H) 37.1 - 48.7 fL 07/08/2022 10:12 AM [employer] [facility] - [facility] [place] PLATELETS 247 140 - 350 K/uL 07/08/2022 10:12 AM [employer] [facility] - [facility] [place] MPV 9.5 9.3 - 12.4 fL 07/08/2022 10:12 AM [employer] [facility] - [facility] [place] NEUTROPHILS 40 % 07/08/2022 10:12 AM [employer] [facility] - [facility] [place] LYMPHOCYTES 40 % 07/08/2022 10:12 AM [employer] [facility] MONOCYTES 14 % 07/08/2022 10:12 AM [employer] [facility] - [facility] EOSINOPHILS 5 % 07/08/2022 10:12 AM [employer] [facility] - [facility] [place] BASOPHILS 1 % 07/08/2022 10:12 AM [employer] [facility] - [facility] IMMATURE GRANULOCYTES 0 % 07/08/2022 10:12 AM [employer] [facility] - [facility] NEUTROPHIL ABSOLUTE 1.46(L) 1.90 - 7.00 K/uL 07/08/2022 10:12 AM [employer] [facility] - [facility] LYMPHOCYTE ABSOLUTE 1.43 0.70 - 4.50 K/uL 07/08/2022 10:12 AM [employer] [facility] - [facility] [place] MONOCYTE ABSOLUTE 0.52 0.10 - 1.30 K/uL 07/08/2022 10:12 AM AIR TECHNICIAN [facility] LABORATORY SERVICES - [facility] EOSINOPHIL ABSOLUTE 0.17 0.00 - 0.70 K/uL 07/08/2022 10:12 AM AIR TECHNICIAN [facility] LABORATORY SERVICES - [facility] [place] BASOPHILS ABSOLUTE 0.03 0.00 - 0.20 K/uL 07/08/2022 10:12 AM AIR TECHNICIAN [facility] LABORATORY SERVICES - [facility] [place] IMMATURE GRANULOCYTES ABSOLUTE 0.01 0.00 - 0.03 K/uL 07/08/2022 10:12 AM AIR TECHNICIAN [facility] LABORATORY SERVICES - [facility] Blood Venipuncture / Unknown 07/08/2022 4:53 AM AIR TECHNICIAN 07/08/2022 9:49 AM AIR TECHNICIAN us [facility] [place] H[facility]AT[facility] ORDERABLES Final Result [facility] LABORATORY [facility] CLIA# [id number] [address] [place] [address] * (ABNORMAL) POC GLUCOSE (07/07/2022 8:27 PM AIR TECHNICIAN) GLUCOSE POC 246(H) 74 - 99 mg/dL 07/07/2022 8:27 PM [facility] SPECIMEN SOURCE, GLUCOSE POC Whole Blood 07/07/2022 8:27 PM [facility] Blood, whole 07/07/2022 8:27 PM AIR TECHNICIAN 07/07/2022 8:36 PM AIR TECHNICIAN us Srinivas Jon MD POINT OF CARE TESTING Final Resu lt [facility] CLIA # [id number] [address] [place] [address] * (ABNORMAL) POC GLUCOSE (07/07/2022 4:58 PM AIR TECHNICIAN) GLUCOSE POC 332(H) 74 - 99 mg/dL 07/07/2022 4:58 PM AIR TECHNICIAN [facility] SPECIMEN SOURCE, GLUCOSE POC Whole Blood 07/07/2022 4:58 PM AIR TECHNICIAN [facility] COMMENT, GLU POC Notified RN/MD 07/07/2022 4:58 PM AIR TECHNICIAN [facility] Blood, whole 07/07/2022 4:58 PM AIR TECHNICIAN 07/07/2022 5:11 PM AIR TECHNICIAN us Srinivas Jon MD POINT OF CARE TESTING Final Resu lt Performing Organization Address City/[facility]/ZIP Co de Phone Number [facility] CLIA # [id number] [place] [address] * (ABNORMAL) POC GLUCOSE (07/07/2022 11:38 AM AIR TECHNICIAN) GLUCOSE POC 270(H) 74 - 99 mg/dL 07/07/2022 11:38 AM AIR TECHNICIAN [facility] SPECIMEN SOURCE, GLUCOSE POC Whole Blood 07/07/2022 11:38 AM AIR TECHNICIAN [facility] Blood, whole 07/07/2022 11:3 8 AM AIR TECHNICIAN 07/07/2022 11:53 AM AIR TECHNICIAN us Srinivas Jon MD POINT OF CARE TESTING Final Resu lt Performing Organization Address [facility] Co de Phone Number [facility] CLIA # [id number] [place] [address] * (ABNORMAL) POC GLUCOSE (07/07/2022 7:29 AM AIR TECHNICIAN) GLUCOSE POC 119(H) 74 - 99 mg/dL 07/07/2022 7:29 AM AIR TECHNICIAN [facility] SPECIMEN SOURCE, GLUCOSE POC Whole Blood 07/07/2022 7:29 AM AIR TECHNICIAN [facility] Blood, whole 07/07/2022 7:29 AM AIR TECHNICIAN 07/07/2022 7:54 AM AIR TECHNICIAN us Srinivas Jon MD POINT OF CARE TESTING Final Resu lt [facility] CLIA # [id number] [place] [address] * (ABNORMAL) POC GLUCOSE (07/06/2022 8:10 PM AIR TECHNICIAN) GLUCOSE POC 341(H) 74 - 99 mg/dL 07/06/2022 8:10 PM AIR TECHNICIAN [facility] SPECIMEN SOURCE, GLUCOSE POC Whole Blood 07/06/2022 8:10 PM AIR TECHNICIAN [facility] COMMENT, GLU POC Notified RN/MD 07/06/2022 8:10 PM AIR TECHNICIAN [facility] Blood, whole 07/06/2022 8:10 PM AIR TECHNICIAN 07/06/2022 8:39 PM AIR TECHNICIAN us Srinivas Jon MD POINT OF CARE TESTING Final Resu lt [facility] CLIA # [id number] [place] [address] * (ABNORMAL) POC GLUCOSE (07/06/2022 4:44 PM AIR TECHNICIAN) GLUCOSE POC 257(H) 74 - 99 mg/dL 07/06/2022 4:44 PM [facility] SPECIMEN SOURCE, GLUCOSE POC Whole Blood 07/06/2022 4:44 PM AIR TECHNICIAN [facility] Blood, whole 07/06/2022 4:44 PM AIR TECHNICIAN 07/06/2022 5:01 PM AIR TECHNICIAN us Srinivas Jon MD POINT OF CARE TESTING Final Resu lt [facility] CLIA # [id number] [place] [address] * (ABNORMAL) POC GLUCOSE (07/06/2022 12:21 PM AIR TECHNICIAN) GLUCOSE POC 251(H) 74 - 99 mg/dL 07/06/2022 12:21 PM AIR TECHNICIAN [facility] SPECIMEN SOURCE, GLUCOSE POC Whole Blood 07/06/2022 12:21 PM AIR TECHNICIAN [facility] Blood, whole 07/06/2022 12:2 1 PM AIR TECHNICIAN 07/06/2022 12:33 PM AIR TECHNICIAN us Srinivas Jon MD POINT OF CARE TESTING Final Resu lt [facility] CLIA # [id number] [place] [address] * POC GLUCOSE (07/06/2022 7:21 AM AIR TECHNICIAN) GLUCOSE POC 80 74 - 99 mg/dL 07/06/2022 7:21 AM [facility] SPECIMEN SOURCE, GLUCOSE POC Whole Blood 07/06/2022 7:21 AM [facility] Blood, whole 07/06/2022 7:21 AM AIR TECHNICIAN 07/06/2022 7:57 AM AIR TECHNICIAN us Srinivas Jon MD POINT OF CARE TESTING Final Resu lt [facility] CLIA # [id number] [address] [place] [address] * (ABNORMAL) POC GLUCOSE (07/05/2022 8:19 PM AIR TECHNICIAN) GLUCOSE POC 340(H) 74 - 99 mg/dL 07/05/2022 8:19 PM AIR TECHNICIAN [facility] SPECIMEN SOURCE, GLUCOSE POC Whole Blood 07/05/2022 8:19 PM AIR TECHNICIAN [facility] COMMENT, GLU POC Notified RN/MD 07/05/2022 8:19 PM [facility] Blood, whole 07/05/2022 8:19 PM AIR TECHNICIAN 07/05/2022 9:22 PM AIR TECHNICIAN us Srinivas Jon MD POINT OF CARE TESTING Final Resu lt [facility] CLIA # [id number] [place] [address] * (ABNORMAL) POC GLUCOSE (07/05/2022 4:26 PM AIR TECHNICIAN) GLUCOSE POC 352(H) 74 - 99 mg/dL 07/05/2022 4:26 PM AIR TECHNICIAN [facility] SPECIMEN SOURCE, GLUCOSE POC Whole Blood 07/05/2022 4:26 PM AIR TECHNICIAN [facility] Blood, whole 07/05/2022 4:26 PM AIR TECHNICIAN 07/05/2022 4:37 PM AIR TECHNICIAN us Srinivas Jon MD POINT OF CARE TESTING Final Resu lt [facility] CLIA # [id number] [place] [address] * (ABNORMAL) POC GLUCOSE (07/05/2022 11:30 AM AIR TECHNICIAN) GLUCOSE POC 286(H) 74 - 99 mg/dL 07/05/2022 11:30 AM AIR TECHNICIAN [facility] SPECIMEN SOURCE, GLUCOSE POC Whole Blood 07/05/2022 11:30 AM AIR TECHNICIAN [facility] Blood, whole 07/05/2022 11:3 0 AM AIR TECHNICIAN 07/05/2022 11:48 AM AIR TECHNICIAN us Srinivas Jon MD POINT OF CARE TESTING Final Resu lt [facility] CLIA # [id number] [place] [address] * (ABNORMAL) POC GLUCOSE (07/05/2022 7:31 AM AIR TECHNICIAN) GLUCOSE POC 124(H) 74 - 99 mg/dL 07/05/2022 7:31 AM AIR TECHNICIAN [facility] SPECIMEN SOURCE, GLUCOSE POC Whole Blood 07/05/2022 7:31 AM AIR TECHNICIAN [facility] Blood, whole 07/05/2022 7:31 AM AIR TECHNICIAN 07/05/2022 7:42 AM AIR TECHNICIAN us Srinivas Jon MD POINT OF CARE TESTING Final Resu lt Performing Organization Address City/[facility]/ZIP Co de Phone Number [facility] CLIA # [id number] [place] [address] * (ABNORMAL) POC GLUCOSE (07/04/2022 9:01 PM AIR TECHNICIAN) GLUCOSE POC 330(H) 74 - 99 mg/dL 07/04/2022 9:01 PM AIR TECHNICIAN [facility] SPECIMEN SOURCE, GLUCOSE POC Whole Blood 07/04/2022 9:01 PM AIR TECHNICIAN [facility] COMMENT, GLU POC Notified RN/MD 07/04/2022 9:01 PM AIR TECHNICIAN [facility] Blood, whole 07/04/2022 9:01 PM AIR TECHNICIAN 07/04/2022 9:19 PM AIR TECHNICIAN us Srinivas Jon MD POINT OF CARE TESTING Final Resu Performing Organization Address [facility]/ZIP Co de Phone Number [facility] CLIA # [id number] [place] [address] * (ABNORMAL) POC GLUCOSE (07/04/2022 4:49 PM AIR TECHNICIAN) GLUCOSE POC 294(H) 74 - 99 mg/dL 07/04/2022 4:49 PM AIR TECHNICIAN [facility] SPECIMEN SOURCE, GLUCOSE POC Whole Blood 07/04/2022 4:49 PM AIR TECHNICIAN [facility] COMMENT, GLU POC Notified RN/MD 07/04/2022 4:49 PM [facility] Blood, whole 07/04/2022 4:49 PM AIR TECHNICIAN 07/04/2022 5:05 PM AIR TECHNICIAN us Srinivas Jon MD POINT OF CARE TESTING Final Resu lt [facility] CLIA # [id number] [place] [address] * (ABNORMAL) POC GLUCOSE (07/04/2022 11:32 AM AIR TECHNICIAN) GLUCOSE POC 266(H) 74 - 99 mg/dL 07/04/2022 11:32 AM AIR TECHNICIAN [facility] SPECIMEN SOURCE, GLUCOSE POC Whole Blood 07/04/2022 11:32 AM AIR TECHNICIAN [facility] COMMENT, GLU POC Notified RN/MD 07/04/2022 11:32 AM AIR TECHNICIAN [facility] Blood, whole 07/04/2022 11:3 2 AM AIR TECHNICIAN 07/04/2022 11:48 AM AIR TECHNICIAN us Srinivas Jon MD POINT OF CARE TESTING Final [facility]u lt [facility] [id number] [place] [address] * (ABNORMAL) BRAIN NATRIURETIC PEPTIDE, BNP OR PROBNP (07/04/2022 11:09 AM AIR TECHNICIAN) PROBNP, N TERMINAL 4,687(H) <124 pg/mL 07/04/2022 1:03 PM [facility] LABORATORY SERVICES [facility] Comment: Reference values for screening purposes based on color shop helper's recommendation: Patients less than 75 years: <125 [...] Blood Venipuncture / Unknown 07/04/2022 11:09 AM AIR TECHNICIAN 07/04/2022 12:22 PM AIR TECHNICIAN us Avni Stoner Victor CHEMISTRY ORDERABLES F inal Result Performing Organization Address [facility] Co de Phone Number [facility] [employer] [facility]IA# [id number] [address] [place] [address] * (ABNORMAL) C-REACTIVE PROTEIN (07/04/2022 11:09 AM AIR TECHNICIAN) CRP 5.0(H) <5.0 mg/L 07/04/2022 1:03 PM AIR TECHNICIAN [facility] [employer] [facility] Blood Venipuncture / Unknown 07/04/2022 11:09 AM AIR TECHNICIAN 07/04/2022 12:22 PM AIR TECHNICIAN Avni Herbie Victor CHEMISTRY ORDERABLES F inal Result Performing Organization Address [facility] Phone Number [facility] [employer] [facility]# [id number] [address] [place] [address] * MAGNESIUM LEVEL (07/04/2022 11:09 AM AIR TECHNICIAN) Pathologist [facility] MAGNESIUM 1.8 1.6 - 2.6 mg/dL 07/04/2022 1:03 PM AIR TECHNICIAN [facility] [employer] [facility] Blood Venipuncture / Unknown 07/04/2022 11:09 AM AIR TECHNICIAN 07/04/2022 12:22 PM AIR TECHNICIAN Avni Stoner Victor CHEMISTRY ORDERABLES F inal Result Performing Organization Address [facility] Co de Phone Number [facility] [employer] [facility]ENTERHAYLEY# [id number] [address] [place] [address] * (ABNORMAL) COMPREHENSIVE METABOLIC PANEL (07/04/2022 11:09 AM AIR TECHNICIAN) SODIUM 134(L) 136 - 145 mmol/L 07/04/2022 1:04 PM AIR TECHNICIAN [facility] [employer] [facility] POTASSIUM 4.7 3.5 - 5.0 mmol/L 07/04/2022 1:04 PM [email or web address] CHLORIDE 95(L) 98 - 107 mmol/L 07/04/2022 1:04 PM [facility] [employer] LABORATORY [facility] CO2 24 22 - 29 mmol/L 07/04/2022 1:04 PM [email or web address] CALCIUM 9.1 8.6 - 10.2 mg/dL 07/04/2022 1:04 PM [email or web address] BUN 49(H) 6 - 20 mg/dL 07/04/2022 1:04 PM [facility] [employer] LABORATORY [facility] CREATININE 8.63(H) 0.67 - 1.17 mg/dL 07/04/2022 1:04 PM [facility] [employer] LABORATORY [facility] GLUCOSE 304(H) 74 - 99 mg/dL 07/04/2022 1:04 PM [email or web address] TOTAL PROTEIN 6.3(L) 6.7 - 8.6 g/dL 07/04/2022 1:04 PM [facility] [employer] LABORATORY [facility] ALBUMIN 3.1(L) 3.5 - 5.2 g/dL 07/04/2022 1:04 PM [facility] [employer] LABORATORY [facility] BILIRUBIN TOTAL 0.4 0.3 - 1.2 mg/dL 07/04/2022 1:04 PM [email or web address] LAB[facility] ALKALINE PHOSPHATASE 107 40 - 129 U/L 07/04/2022 1:04 PM [email or web address] AST 48(H) <41 U/L 07/04/2022 1:04 PM [facility] [employer] LABORATORY [facility] ALT 44(H) <42 U/L 07/04/2022 1:04 PM [facility] [employer] LABORATORY [facility] GFR 7(L) >=60 mL/min/1.7 3 sq meter 07/04/2022 1:04 PM [facility] [employer] [facility] Comment:eGFR calculated with 2020 CKD-EPI equation. Vegetarian diet, extremely high or low muscle mass, and may affect results. Cystatin C with Glomerular Filtration Rate is a suitable alternative for these patients. ANION GAP 15 8 - 16 mmol/L 07/04/2022 1:04 PM [facility] LABORATORY [facility] Blood Venipuncture / Unknown 07/04/2022 11:09 AM AIR TECHNICIAN 07/04/2022 12:22 PM AIR TECHNICIAN Narrative [facility] - 07/04/2022 1:04 PM AIR TECHNICIAN Samples containing indocyanine green cause interferences on Total and/or Direct Bilirubin and must not be measured. Avni Clifford [facility] CHEMISTRY ORDERABLES F inal Result [facility] [employer] [facility] CLIA# [id number] [address] [place] [address] * (ABNORMAL) CBC WITH DIFFERENTIAL (07/04/2022 11:09 AM AIR TECHNICIAN) [facility] WBC 4.1 4.0 - 9.8 K/uL 07/04/2022 12:29 PM [facility] [employer] [facility] RBC 2.96(L) 4.50 - 5.40 M/uL 07/04/2022 12:29 PM [facility] [employer] [facility] HEMOGLOBIN 8.9(L) 13.6 - 16.5 g/dL 07/04/2022 12:29 PM [facility] [employer] [facility] HEMATOCRIT 28.1(L) 40.0 - 48.0 % 07/04/2022 12:29 PM [facility] [employer] [facility] MCV 94.9 82.0 - 99.0 fL 07/04/2022 12:29 PM [facility] [employer] [facility] MCH 30.1 27.2 - 32.6 pg 07/04/2022 12:29 PM [facility] [employer] [facility] MCHC 31.7 31.5 - 35.5 g/dL 07/04/2022 12:29 PM [facility] [employer] [facility] RDW 15.8(H) 11.5 - 14.5 % 07/04/2022 12:29 PM [facility] [employer] [facility] RDW-STDEV 54.1(H) 37.1 - 48.7 fL 07/04/2022 12:29 PM [facility] LABORATORY SERVICES - [facility] PLATELETS 323 140 - 350 K/uL 07/04/2022 12:29 PM [facility] [employer] LABORATORY SERVICES - [facility] MPV 9.1(L) 9.3 - 12.4 fL 07/04/2022 12:29 PM [facility] - [facility] NEUTROPHILS 55 % 07/04/2022 12:29 PM [facility] [employer] SERVICES - [facility] LYMPHOCYTES 27 % 07/04/2022 12:29 PM [facility] [employer] SERVICES - [facility] MONOCYTES 13 % 07/04/2022 12:29 PM [email or web address] LAB[facility] SERVICES - [facility] EOSINOPHILS 3 % 07/04/2022 12:29 PM [facility] [employer] SERVICES - [facility] BASOPHILS 1 % 07/04/2022 12:29 PM [facility] [employer] SERVICES - [facility] IMMATURE GRANULOCYTES 1 % 07/04/2022 12:29 PM [facility] [employer] SERVICES - [facility] Comment:IG (Immature Granulo cyte) count includes Metamyelocytes, Myelocytes, and Promyelocytes NEUTROPHIL ABSOLUTE 2.29 1.90 - 7.00 K/uL 07/04/2022 12:29 PM [facility] [employer] SERVICES - [facility] LYMPHOCYTE ABSOLUTE 1.13 0.70 - 4.50 K/uL 07/04/2022 12:29 PM [facility] [employer] SERVICES - [facility] MONOCYTE ABSOLUTE 0.53 0.10 - 1.30 K/uL 07/04/2022 12:29 PM [facility] EOSINOPHIL ABSOLUTE 0.14 0.00 - 0.70 K/uL 07/04/2022 12:29 PM [facility] [employer] SERVICES - [facility] BASOPHILS ABSOLUTE 0.03 0.00 - 0.20 K/uL 07/04/2022 12:29 PM [facility] [employer] SERVICES - [facility] IMMATURE GRANULOCYTES ABSOLUTE 0.02 0.00 - 0.03 K/uL 07/04/2022 12:29 PM [facility] [employer] SERVICES - [facility] Blood Venipuncture / Unknown 07/04/2022 11:09 AM AIR TECHNICIAN 07/04/2022 12:22 PM AIR TECHNICIAN Avni Clifford [facility] HEMATOLOGY ORDERABLES Final Result [facility] CLIA# [id number] [address] [place] [address] * POC GLUCOSE (07/04/2022 7:17 AM AIR TECHNICIAN) GLUCOSE POC 89 74 - 99 mg/dL 07/04/2022 7:17 AM AIR TECHNICIAN [facility] SPECIMEN SOURCE, GLUCOSE POC Whole Blood 07/04/2022 7:17 AM AIR TECHNICIAN [facility] COMMENT, GLU POC Notified RN/MD 07/04/2022 7:17 AM AIR TECHNICIAN [facility] Blood, whole 07/04/2022 7:17 AM AIR TECHNICIAN 07/04/2022 7:39 AM AIR TECHNICIAN us Srinivas Jon MD POINT OF CARE TESTING Final Resu lt [facility] CLIA # [id number] [place] [address] * (ABNORMAL) POC GLUCOSE (07/03/2022 8:09 PM AIR TECHNICIAN) GLUCOSE POC 271(H) 74 - 99 mg/dL 07/03/2022 8:09 PM [facility] SPECIMEN SOURCE, GLUCOSE POC Whole Blood 07/03/2022 8:09 PM AIR TECHNICIAN [facility] Blood, whole 07/03/2022 8:09 PM AIR TECHNICIAN 07/03/2022 8:24 PM AIR TECHNICIAN us Srinivas Jon MD POINT OF CARE TESTING Final Resu lt [facility] CLIA # [id number] [address] [place] [address] * (ABNORMAL) POC GLUCOSE (07/03/2022 4:31 PM AIR TECHNICIAN) GLUCOSE POC 368(H) 74 - 99 mg/dL 07/03/2022 4:31 PM AIR TECHNICIAN [facility] SPECIMEN SOURCE, GLUCOSE POC Whole Blood 07/03/2022 4:31 PM [facility] COMMENT, GLU POC Notified RN/MD 07/03/2022 4:31 PM [facility] Blood, whole 07/03/2022 4:31 PM AIR TECHNICIAN 07/03/2022 4:45 PM AIR TECHNICIAN us Srinivas Jon MD POINT OF CARE TESTING Final Resu lt Performing Organization Address City/[facility]/ZIP Co de Phone Number [facility] CLIA # [id number] [place] [address] * (ABNORMAL) POC GLUCOSE (07/03/2022 11:22 AM AIR TECHNICIAN) GLUCOSE POC 316(H) 74 - 99 mg/dL 07/03/2022 11:22 AM [facility] SPECIMEN SOURCE, GLUCOSE POC Whole Blood 07/03/2022 11:22 AM [facility] COMMENT, GLU POC Notified RN/MD 07/03/2022 11:22 AM [facility] Blood, whole 07/03/2022 11:2 2 AM AIR TECHNICIAN 07/03/2022 11:35 AM AIR TECHNICIAN us Srinivas Jon MD POINT OF CARE TESTING Final Resu lt Performing Organization Address [facility] Co de Phone Number [facility] CLIA # [id number] [place] [address] * XR CHEST PA OR AP 1 VW (07/03/2022 9:35 AM AIR TECHNICIAN) Anatomical Region Laterality Modality Chest Other us Avni Clifford DMS DIAGNOSTIC IMAGING ORD ERABLES Final Result * POC GLUCOSE (07/03/2022 7:35 AM AIR TECHNICIAN) GLUCOSE POC 80 74 - 99 mg/dL 07/03/2022 7:35 AM [facility] SPECIMEN SOURCE, GLUCOSE POC Whole Blood 07/03/2022 7:35 AM AIR TECHNICIAN [facility] Blood, whole 07/03/2022 7:35 AM AIR TECHNICIAN 07/03/2022 7:43 AM AIR TECHNICIAN us Srinivas Jon MD POINT OF CARE TESTING Final Resu lt Performing Organization Address City/[facility]/ZIP Co de Phone Number [facility] CLIA # [id number] [place] [address] * CK (07/03/2022 5:44 AM AIR TECHNICIAN) CK 37 20 - 200 U/L 07/03/2022 9:02 AM AIR TECHNICIAN [facility] LABORATORY [facility] Blood Venipuncture / Unknown 07/03/2022 5:44 AM AIR TECHNICIAN 07/03/2022 8:17 AM AIR TECHNICIAN us Jasmin Bradley MD CHEMISTRY ORDERABLES Final Resul t Performing Organization Address City/[facility]/ZIP Co de Phone Number [facility] [employer] [facility] CLIA# [id number] [address] [place] [address] * (ABNORMAL) BRAIN NATRIURETIC PEPTIDE, BNP OR PROBNP (07/03/2022 5:44 AM AIR TECHNICIAN) PROBNP, N TERMINAL 5,888(H) <124 pg/mL 07/03/2022 9:02 AM AIR TECHNICIAN [facility] LABORATORY [facility] Comment: Reference values for screening purposes based on color shop helper's recommendation: Patients less than 75 years: <125 [...] Blood Venipuncture / Unknown 07/03/2022 5:44 AM AIR TECHNICIAN 07/03/2022 8:17 AM AIR TECHNICIAN Avni Herbie [employer] CHEMISTRY ORDERABLES F inal Result Performing Organization Address [facility] de Phone Number [facility] [id number] [address] [place] [address] * (ABNORMAL) C-REACTIVE PROTEIN (07/03/2022 5:44 AM AIR TECHNICIAN) Pathologist [facility] CRP 6.3(H) <5.0 mg/L 07/03/2022 9:02 AM AIR TECHNICIAN [facility] [employer] [facility] Blood Venipuncture / Unknown 07/03/2022 5:44 AM AIR TECHNICIAN 07/03/2022 8:17 AM AIR TECHNICIAN Avni Clifford [employer] CHEMISTRY ORDERABLES F inal Result Performing Organization Address [facility] Phone Number [facility] [employer] [facility] CLWV# [id number] [address] [place] [address] * MAGNESIUM LEVEL (07/03/2022 5:44 AM AIR TECHNICIAN) Pathologist [facility] MAGNESIUM 2.3 1.6 - 2.6 mg/dL 07/03/2022 9:02 AM AIR TECHNICIAN [facility] [employer] [facility] Blood Venipuncture / Unknown 07/03/2022 5:44 AM AIR TECHNICIAN 07/03/2022 8:17 AM AIR TECHNICIAN Avni Herbie [employer] CHEMISTRY ORDERABLES F inal Result Performing Organization Address City/[facility] Co de Phone Number [facility] [employer] [facility]# [id number] [address] [place] [address] * (ABNORMAL) COMPREHENSIVE METABOLIC PANEL (07/03/2022 5:44 AM AIR TECHNICIAN) SODIUM 137 136 - 145 mmol/L 07/03/2022 9:16 AM [facility] [employer] LABORATORY SERVICES - [facility] POTASSIUM 3.4(L) 3.5 - 5.0 mmol/L 07/03/2022 9:16 AM [facility] [employer] LABORATORY SERVICES - [facility] CHLORIDE 96(L) 98 - 107 mmol/L 07/03/2022 9:16 AM [facility] [employer] LABORATORY SERVICES - [facility] CO2 25 22 - 29 mmol/L 07/03/2022 9:16 AM [facility] [employer] LABORATORY SERVICES - [facility] CALCIUM 9.4 8.6 - 10.2 mg/dL 07/03/2022 9:16 AM [facility] [employer] LABORATORY SERVICES - [facility] BUN 46(H) 6 - 20 mg/dL 07/03/2022 9:16 AM [facility] [employer] LABORAT[facility] - [facility] CREATININE 8.80(H) 0.67 - 1.17 mg/dL 07/03/2022 9:16 AM [facility] [employer] [facility] [place] GLUCOSE 113(H) 74 - 99 mg/dL 07/03/2022 9:16 AM [facility] [employer] [facility] [place] TOTAL PROTEIN 6.3(L) 6.7 - 8.6 g/dL 07/03/2022 9:16 AM [facility] [employer] [facility] [place] ALBUMIN 3.1(L) 3.5 - 5.2 g/dL 07/03/2022 9:16 AM [facility] [employer] [facility] - [facility] BILIRUBIN TOTAL 0.3 0.3 - 1.2 mg/dL 07/03/2022 9:16 AM [facility] [employer] [facility] ALKALINE PHOSPHATASE 105 40 - 129 U/L 07/03/2022 9:16 AM [facility] [employer] [facility] - [facility] AST 38 <41 U/L 07/03/2022 9:16 AM [employer] TE[employer] [facility] ALT 38 <42 U/L 07/03/2022 9:16 AM [employer] TECHNICIAN [employer] [facility] GFR 7(L) >=60 mL/min/1.7 3 sq meter 07/03/2022 9:16 AM AIR TECHNICIAN [employer] [facility] [place] Comment:eGFR calculated with 2020 CKD-EPI equation. Vegetarian diet, extremely high or low muscle mass, and may affect results. Cystatin C with Glomerular Filtration Rate is a suitable alternative for these patients. ANION GAP 16 8 - 16 mmol/L 07/03/2022 9:16 AM [facility] [employer] [facility] Blood Venipuncture / Unknown 07/03/2022 5:44 AM AIR TECHNICIAN 07/03/2022 8:17 AM AIR TECHNICIAN [facility] [employer] LABORATORY SERVICES - [facility] - 07/03/2022 9:16 AM AIR TECHNICIAN Samples containing indocyanine green cause interferences on Total and/or Direct Bilirubin and must not be measured. Avni Clifford [facility] CHEMISTRY ORDERABLES F inal Result [facility] [employer] [facility] CLIA# [id number] [address] [place] [id number] * (ABNORMAL) CBC WITH DIFFERENTIAL (07/03/2022 5:44 AM AIR TECHNICIAN) Pathologist [facility] WBC 3.7(L) 4.0 - 9.8 K/uL 07/03/2022 8:34 AM [facility] [employer] [facility] RBC 2.95(L) 4.50 - 5.40 M/uL 07/03/2022 8:34 AM [facility] [employer] [facility] HEMOGLOBIN 8.8(L) 13.6 - 16.5 g/dL 07/03/2022 8:34 AM [facility] [employer] [facility] HEMATOCRIT 27.7(L) 40.0 - 48.0 % 07/03/2022 8:34 AM [facility] [employer] [facility] MCV 93.9 82.0 - 99.0 fL 07/03/2022 8:34 AM [facility] [employer] [facility] MCH 29.8 27.2 - 32.6 pg 07/03/2022 8:34 AM [facility] [employer] [facility] MCHC 31.8 31.5 - 35.5 g/dL 07/03/2022 8:34 AM [facility] [employer] [facility] RDW 16.0(H) 11.5 - 14.5 % 07/03/2022 8:34 AM [facility] [employer] [facility] RDW-STDEV 55.0(H) 37.1 - 48.7 fL 07/03/2022 8:34 AM [employer] LAB[facility]AT[facility] - [facility] PLATELETS 368(H) 140 - 350 K/uL 07/03/2022 8:34 AM [employer] SERVICES - [facility] MPV 9.4 9.3 - 12.4 fL 07/03/2022 8:34 AM [employer] [facility] - [facility] NEUTROPHILS 40 % 07/03/2022 8:34 AM [employer] [facility] LYMPHOCYTES 37 % 07/03/2022 8:34 AM [employer] [facility] MONOCYTES 15 % 07/03/2022 8:34 AM [employer] [facility] EOSINOPHILS 6 % 07/03/2022 8:34 AM [employer] [facility] BASOPHILS 1 % 07/03/2022 8:34 AM [employer] [facility] IMMATURE GRANULOCYTES 1 % 07/03/2022 8:34 AM [employer] [facility] Comment:IG (Immature Granulo cyte) count includes Metamyelocytes, Myelocytes, and Promyelocytes NEUTROPHIL ABSOLUTE 1.47(L) 1.90 - 7.00 K/uL 07/03/2022 8:34 AM [employer] [facility] LYMPHOCYTE ABSOLUTE 1.35 0.70 - 4.50 K/uL 07/03/2022 8:34 AM [employer] [facility] MONOCYTE ABSOLUTE 0.56 0.10 - 1.30 K/uL 07/03/2022 8:34 AM [employer] [facility] EOSINOPHIL ABSOLUTE 0.21 0.00 - 0.70 K/uL 07/03/2022 8:34 AM [employer] [facility] BASOPHILS ABSOLUTE 0.04 0.00 - 0.20 K/uL 07/03/2022 8:34 AM [employer] [facility] IMMATURE GRANULOCYTES ABSOLUTE 0.02 0.00 - 0.03 K/uL 07/03/2022 8:34 AM [employer] [facility] Blood Venipuncture / Unknown 07/03/2022 5:44 AM AIR TECHNICIAN 07/03/2022 8:17 AM AIR TECHNICIAN us Avni Clifford DMS HEMATOLOGY ORDERABLES Final Result [facility] CLIA# [id number] [address] [place] [address] * (ABNORMAL) POC GLUCOSE (07/02/2022 7:51 PM AIR TECHNICIAN) GLUCOSE POC 346(H) 74 - 99 mg/dL 07/02/2022 7:51 PM AIR TECHNICIAN [facility] SPECIMEN SOURCE, GLUCOSE POC Whole Blood 07/02/2022 7:51 PM AIR TECHNICIAN [facility] COMMENT, GLU POC Notified RN/MD 07/02/2022 7:51 PM AIR TECHNICIAN [facility] Blood, whole 07/02/2022 7:51 PM AIR TECHNICIAN 07/02/2022 8:13 PM AIR TECHNICIAN us Srinivas Jon MD POINT OF CARE TESTING Final Resu lt Performing Organization Address City/[facility]/ZIP Co de Phone Number [facility] CLIA # [id number] [place] [address] * (ABNORMAL) POC GLUCOSE (07/02/2022 4:31 PM AIR TECHNICIAN) GLUCOSE POC 292(H) 74 - 99 mg/dL 07/02/2022 4:31 PM AIR TECHNICIAN [facility] SPECIMEN SOURCE, GLUCOSE POC Whole Blood 07/02/2022 4:31 PM AIR TECHNICIAN [facility] Blood, whole 07/02/2022 4:31 PM AIR TECHNICIAN 07/02/2022 4:45 PM AIR TECHNICIAN us Srinivas Jon MD POINT OF CARE TESTING Final Resu lt [facility] CLIA # [id number] [address] [place] [address] * (ABNORMAL) POC GLUCOSE (07/02/2022 12:06 PM AIR TECHNICIAN) GLUCOSE POC 187(H) 74 - 99 mg/dL 07/02/2022 12:06 PM AIR TECHNICIAN [facility] SPECIMEN SOURCE, GLUCOSE POC Whole Blood 07/02/2022 12:06 PM AIR TECHNICIAN [facility] Blood, whole 07/02/2022 12:0 6 PM AIR TECHNICIAN 07/02/2022 12:16 PM AIR TECHNICIAN Srinivas Jon MD POINT OF CARE TESTING Final Resu lt Performing Organization Address [facility]/ZIP Co de Phone Number [facility] CLIA # [id number] [place] [address] * (ABNORMAL) POC GLUCOSE (07/02/2022 7:37 AM AIR TECHNICIAN) GLUCOSE POC 120(H) 74 - 99 mg/dL 07/02/2022 7:37 AM [facility] SPECIMEN SOURCE, GLUCOSE POC Whole Blood 07/02/2022 7:37 AM [facility] Blood, whole 07/02/2022 7:37 AM AIR TECHNICIAN 07/02/2022 7:47 AM AIR TECHNICIAN us Srinivas Jon MD POINT OF CARE TESTING Final Resu Performing Organization Address [facility]/ZIP Co de Phone Number [facility] CLIA # [id number] [place] [address] * (ABNORMAL) POC GLUCOSE (07/01/2022 7:46 PM AIR TECHNICIAN) GLUCOSE POC 240(H) 74 - 99 mg/dL 07/01/2022 7:46 PM [facility] SPECIMEN SOURCE, GLUCOSE POC Whole Blood 07/01/2022 7:46 PM [facility] COMMENT, GLU POC Notified RN/MD 07/01/2022 7:46 PM [facility] Blood, whole 07/01/2022 7:46 PM AIR TECHNICIAN 07/01/2022 7:57 PM AIR TECHNICIAN us Srinivas Jon MD POINT OF CARE TESTING Final Resu lt Performing Organization Address City/[facility]/ZIP Co de Phone Number [facility] CLIA # [id number] [place] [address] * (ABNORMAL) POC GLUCOSE (07/01/2022 5:00 PM AIR TECHNICIAN) GLUCOSE POC 229(H) 74 - 99 mg/dL 07/01/2022 5:00 PM AIR TECHNICIAN [facility] SPECIMEN SOURCE, GLUCOSE POC Whole Blood 07/01/2022 5:00 PM AIR TECHNICIAN [facility] Blood, whole 07/01/2022 5:00 PM AIR TECHNICIAN 07/01/2022 5:09 PM AIR TECHNICIAN us Srinivas Jon MD POINT OF CARE TESTING Final Resu lt Performing Organization Address [facility] Co de Phone Number [facility] CLIA # [id number] [place] [address] * (ABNORMAL) POC GLUCOSE (07/01/2022 12:11 PM AIR TECHNICIAN) GLUCOSE POC 205(H) 74 - 99 mg/dL 07/01/2022 12:11 PM AIR TECHNICIAN [facility] SPECIMEN SOURCE, GLUCOSE POC Whole Blood 07/01/2022 12:11 PM AIR TECHNICIAN [facility] Blood, whole 07/01/2022 12:1 1 PM AIR TECHNICIAN 07/01/2022 12:23 PM AIR TECHNICIAN us Srinivas Jon MD POINT OF CARE TESTING Final Resu lt Performing Organization Address City/[facility]/ZIP Co de Phone Number [facility] CLIA # [id number] [address] [place] [address] * (ABNORMAL) POC GLUCOSE (07/01/2022 7:21 AM AIR TECHNICIAN) GLUCOSE POC 216(H) 74 - 99 mg/dL 07/01/2022 7:21 AM AIR TECHNICIAN [facility] SPECIMEN SOURCE, GLUCOSE POC Whole Blood 07/01/2022 7:21 AM AIR TECHNICIAN [facility] Blood, whole 07/01/2022 7:21 AM AIR TECHNICIAN 07/01/2022 7:32 AM AIR TECHNICIAN us Srinivas Jon MD POINT OF CARE TESTING Final Resu lt [facility] CLIA # [id number] [place] [address] * (ABNORMAL) URIC ACID (07/01/2022 5:19 AM AIR TECHNICIAN) Pathologist [facility] URIC ACID 8.4(H) 3.4 - 7.0 mg/dL 07/02/2022 11:15 PM AIR TECHNICIAN [facility] LABORATORY [facility] Blood Venipuncture / Unknown 07/01/2022 5:19 AM AIR TECHNICIAN 07/01/2022 9:45 AM AIR TECHNICIAN us Jasmin Bradley MD CHEMISTRY ORDERABLES Final Resul t [facility] [employer] [facility] CLIA# [id number] [address] [place] [address] * (ABNORMAL) CBC WITH DIFFERENTIAL (07/01/2022 5:19 AM AIR TECHNICIAN) Pathologist [facility] WBC 3.5(L) 4.0 - 9.8 K/uL 07/01/2022 10:07 AM AIR TECHNICIAN [facility] LABORATORY [facility] RBC 2.87(L) 4.50 - 5.40 M/uL 07/01/2022 10:07 AM AIR TECHNICIAN [facility] LABORATORY [facility] HEMOGLOBIN 8.7(L) 13.6 - 16.5 g/dL 07/01/2022 10:07 AM [facility] LABORATORY [facility] HEMATOCRIT 26.9(L) 40.0 - 48.0 % 07/01/2022 10:07 AM AIR TECHNICIAN [facility] LAB[facility]ORY [facility] MCV 93.7 82.0 - 99.0 fL 07/01/2022 10:07 AM [employer] [facility] MCH 30.3 27.2 - 32.6 pg 07/01/2022 10:07 AM [employer] [facility] MCHC 32.3 31.5 - 35.5 g/dL 07/01/2022 10:07 AM [employer] [facility] RDW 15.9(H) 11.5 - 14.5 % 07/01/2022 10:07 AM [employer] [facility] RDW-STDEV 55.0(H) 37.1 - 48.7 fL 07/01/2022 10:07 AM [employer] [facility] PLATELETS 382(H) 140 - 350 K/uL 07/01/2022 10:07 AM [employer] [facility] MPV 9.7 9.3 - 12.4 fL 07/01/2022 10:07 AM [employer] [facility] NEUTROPHILS 41 % 07/01/2022 10:07 AM [employer] [facility] LYMPHOCYTES 31 % 07/01/2022 10:07 AM [employer] [facility] MONOCYTES 17 % 07/01/2022 10:07 AM [employer] [facility] EOSINOPHILS 8 % 07/01/2022 10:07 AM [employer] [facility] BASOPHILS 1 % 07/01/2022 10:07 AM [employer] [facility] IMMATURE GRANULOCYTES 1 % 07/01/2022 10:07 AM [employer] [facility] Comment:IG (Immature Granulo cyte) count includes Metamyelocytes, Myelocytes, and Promyelocytes NEUTROPHIL ABSOLUTE 1.44(L) 1.90 - 7.00 K/uL 07/01/2022 10:07 AM [employer] [facility] LYMPHOCYTE ABSOLUTE 1.11 0.70 - 4.50 K/uL 07/01/2022 10:07 AM [employer] [facility] MONOCYTE ABSOLUTE 0.61 0.10 - 1.30 K/uL 07/01/2022 10:07 AM [employer] [facility] EOSINOPHIL ABSOLUTE 0.29 0.00 - 0.70 K/uL 07/01/2022 10:07 AM [facility] [employer] [facility] BASOPHILS ABSOLUTE 0.05 0.00 - 0.20 K/uL 07/01/2022 10:07 AM [facility] [employer] [facility] IMMATURE GRANULOCYTES ABSOLUTE 0.04(H) 0.00 - 0.03 K/uL 07/01/2022 10:07 AM [facility] [employer] [facility] Blood Venipuncture / Unknown 07/01/2022 5:19 AM AIR TECHNICIAN 07/01/2022 9:45 AM AIR TECHNICIAN Jasmin Bradley MD HEMATOLOGY ORDERABLES Final Resu lt [employer] SERVICES [facility] CLIA# [id number] [address] [facility] [address] [place] [address] * (ABNORMAL) RENAL FUNCTION PANEL (07/01/2022 5:19 AM AIR TECHNICIAN) SODIUM 131(L) 136 - 145 mmol/L 07/01/2022 10:19 AM [facility] [employer] [facility] POTASSIUM 3.3(L) 3.5 - 5.0 mmol/L 07/01/2022 10:19 AM [facility] [employer] [facility] CHLORIDE 91(L) 98 - 107 mmol/L 07/01/2022 10:19 AM [facility] [employer] [facility] CO2 26 22 - 29 mmol/L 07/01/2022 10:19 AM AIR TECHNICIAN [employer] [facility] CALCIUM 9.0 8.6 - 10.2 mg/dL 07/01/2022 10:19 AM [facility] [employer] [facility] BUN 48(H) 6 - 20 mg/dL 07/01/2022 10:19 AM AIR TECHNICIAN [employer] [facility] CREATININE 9.56(H) 0.67 - 1.17 mg/dL 07/01/2022 10:19 AM AIR TECHNICIAN [employer] [facility] GLUCOSE 273(H) 74 - 99 mg/dL 07/01/2022 10:19 AM AIR TECHNICIAN [employer] [facility] ALBUMIN 2.9(L) 3.5 - 5.2 g/dL 07/01/2022 10:19 AM [facility] LABORATORY [facility] PHOSPHORUS 5.3(H) 2.5 - 4.5 mg/dL 07/01/2022 10:19 AM [facility] GFR 6(L) >=60 mL/min/1.7 3 sq meter 07/01/2022 10:19 AM [facility] Comment:eGFR calculated with 2020 CKD-EPI equation. Vegetarian diet, extremely high or low muscle mass, and may affect results. Cystatin C with Glomerular Filtration Rate is a suitable alternative for these patients. ANION GAP 14 8 - 16 mmol/L 07/01/2022 10:19 AM [facility] Blood Venipuncture / Unknown 07/01/2022 5:19 AM AIR TECHNICIAN 07/01/2022 9:45 AM AIR TECHNICIAN us Jasmin Bradley MD CHEMISTRY ORDERABLES Final Resul t [facility] CLIA# [id number] [address] [place] [address] * (ABNORMAL) POC GLUCOSE (06/30/2022 8:10 PM AIR TECHNICIAN) Pathologist [facility] GLUCOSE POC 232(H) 74 - 99 mg/dL 06/30/2022 8:10 PM [facility] SPECIMEN SOURCE, GLUCOSE POC Whole Blood 06/30/2022 8:10 PM [facility] COMMENT, GLU POC Notified RN/MD 06/30/2022 8:10 PM [facility] Blood, whole 06/30/2022 8:10 PM AIR TECHNICIAN 06/30/2022 8:25 PM AIR TECHNICIAN us Srinivas Jon MD POINT OF CARE TESTING Final Resu lt [facility] CLIA # [id number] [address] [place] [address] * (ABNORMAL) POC GLUCOSE (06/30/2022 4:31 PM AIR TECHNICIAN) GLUCOSE POC 260(H) 74 - 99 mg/dL 06/30/2022 4:31 PM AIR TECHNICIAN [facility] SPECIMEN SOURCE, GLUCOSE POC Whole Blood 06/30/2022 4:31 PM AIR TECHNICIAN [facility] Blood, whole 06/30/2022 4:31 PM AIR TECHNICIAN 06/30/2022 5:11 PM AIR TECHNICIAN Srinivas Jon MD POINT OF CARE TESTING Final Resu lt [facility] CLIA # [id number] [place] [address] * (ABNORMAL) URINALYSIS WITH REFLEX MICROSCOPIC (06/30/2022 2:55 PM AIR TECHNICIAN) COLOR UA Yellow Pale to Dark Yellow 06/30/2022 4:08 PM AIR TECHNICIAN [employer] LABORATORY SERVICES - [facility] CLARITY UA Clear Clear 06/30/2022 4:08 PM AIR TECHNICIAN [employer] LABORATORY SERVICES - [facility] SPECIFIC GRAVITY UA 1.024 1.003 - 1.035 06/30/2022 4:08 PM AIR TECHNICIAN [employer] LABORATORY SERVICES - . [facility] PH UA 5.0 5.0 - 8.0 06/30/2022 4:08 PM AIR TECHNICIAN [employer] LABORATORY SERVICES - . [facility] LEUKOCYTE ESTERASE UA Negative Negative 06/30/2022 4:08 PM AIR TECHNICIAN [employer] LABORATORY SERVICES - . [facility] NITRITE UA Negative Negative 06/30/2022 4:08 PM AIR TECHNICIAN [employer] LABORATORY SERVICES - . [facility] PROTEIN UA Negative Negative 06/30/2022 4:08 PM AIR TECHNICIAN [employer] LABORATORY SERVICES - . [facility] GLUCOSE UA 2+(A) Negative 06/30/2022 4:08 PM AIR TECHNICIAN [employer] LABORATORY SERVICES - . [facility] KETONES UA Negative Negative 06/30/2022 4:08 PM AIR TECHNICIAN [employer] LABORATORY SERVICES - . [facility] UROBILINOGEN UA Normal <2.0 mg/dL 4:08 PM AIR TECHNICIAN [employer] LABORATORY SERVICES - [facility] BILIRUBIN UA Negative Negative 06/30/2022 4:08 PM AIR TECHNICIAN [facility] LABORATORY [facility] BLOOD UA Negative Negative 06/30/2022 4:08 PM AIR TECHNICIAN [facility] Urine URINE SPECIMEN OBTAINED BY CLEAN CATCH PROCEDURE / Unknown Collection / Unknown 06/30/2022 2:55 PM AIR TECHNICIAN 06/30/2022 3:45 PM AIR TECHNICIAN [employer] [facility] URINE ORDERABLES Final Result Performing Organization Address [facility]/ZIP Co de Phone Number [facility] CLIA# [id number] [address] [place] [address] * (ABNORMAL) URINE CULTURE (06/30/2022 2:55 PM AIR TECHNICIAN) CULTURE STAPHYLOCOCCUS EPIDERMIDIS(A) LARISA MCG/ML 07/02/2022 12:31 PM AIR TECHNICIAN [facility] Comment:No further workup in dicated. Urine URINE SPECIMEN OBTAINED BY CLEAN CATCH PROCEDURE / Unknown Collection / Unknown 06/30/2022 2:55 PM AIR TECHNICIAN 06/30/2022 3:45 PM AIR TECHNICIAN [employer] [facility] MICROBIOLOGY - GENERAL ORDERABLES Final Result Performing Organization Address [facility]/ZIP Co de Phone Number [facility] CLIA# [id number] [address] [place] [address] * (ABNORMAL) POC GLUCOSE (06/30/2022 11:42 AM AIR TECHNICIAN) GLUCOSE POC 213(H) 74 - 99 mg/dL 06/30/2022 11:42 AM AIR TECHNICIAN [facility] SPECIMEN SOURCE, GLUCOSE POC Whole Blood 06/30/2022 11:42 AM AIR TECHNICIAN [facility] Blood, whole 06/30/2022 11:4 2 AM AIR TECHNICIAN 06/30/2022 11:55 AM AIR TECHNICIAN Srinivas Jon MD POINT OF CARE TESTING Final Resu lt Performing Organization Address [facility]/ZIP Co de Phone Number [facility] CLIA # [id number] [place] [address] * (ABNORMAL) POC GLUCOSE (06/30/2022 7:03 AM AIR TECHNICIAN) GLUCOSE POC 216(H) 74 - 99 mg/dL 06/30/2022 7:03 AM AIR TECHNICIAN [facility] SPECIMEN SOURCE, GLUCOSE POC Whole Blood 06/30/2022 7:03 AM AIR TECHNICIAN [facility] Blood, whole 06/30/2022 7:03 AM AIR TECHNICIAN 06/30/2022 7:23 AM AIR TECHNICIAN us Srinivas Jon MD POINT OF CARE TESTING Final Resu lt Performing Organization Address [facility] Co de Phone Number [facility] CLIA # [id number] [address] [place] [address] * HEPATITIS B SURFACE ANTIGEN (06/30/2022 5:46 AM AIR TECHNICIAN) [facility] HEPATITIS B SURFACE AG NON-REACT CARA Non-react cara 06/30/2022 11:26 AM AIR TECHNICIAN [facility] [employer] [facility] Comment:A non-reactive test result does not exclude the possibility of exposure to or infection with hepatitis B. Blood Venipuncture / Unknown 06/30/2022 5:46 AM AIR TECHNICIAN 06/30/2022 10:40 AM AIR TECHNICIAN us Jasmin rBadley MD CHEMISTRY ORDERABLES Final Resul t Performing Organization Address [facility]/ZIP Co de Phone Number [facility] [employer] [facility] CLIA# [id number] [address] [place] [address] * HEPATITIS B SURFACE AB, QUANT (06/30/2022 5:46 AM AIR TECHNICIAN) Pathologist [facility] HEPATITIS B SURF AB,QN 188.5 mlU/mL 06/30/2022 11:27 AM AIR TECHNICIAN [facility] [employer] [facility] HEPATITIS B SURFACE AB INTERP Reactive See Interp 06/30/2022 11:27 AM [facility] [employer] LABORATORY SERVICES [facility] Comment:Patient is considere d to be immune to infection with HBV. Blood Venipuncture / Unknown 06/30/2022 5:46 AM AIR TECHNICIAN 06/30/2022 10:40 AM AIR TECHNICIAN Jasmin Bradley MD CHEMISTRY ORDERABLES Final Resul t [employer] SERVICES [facility] CLIA# [id number] [address] [facility] [address] [place], [place] [address] * (ABNORMAL) COMPREHENSIVE METABOLIC PANEL (06/30/2022 5:46 AM AIR TECHNICIAN) SODIUM 133(L) 136 - 145 mmol/L 06/30/2022 11:18 AM [facility] [employer] [facility] POTASSIUM 3.3(L) 3.5 - 5.0 mmol/L 06/30/2022 11:18 AM [facility] [employer] [facility] CHLORIDE 90(L) 98 - 107 mmol/L 06/30/2022 11:18 AM [facility] [employer] [facility] CO2 25 22 - 29 mmol/L 06/30/2022 11:18 AM [facility] [employer] [facility] CALCIUM 9.1 8.6 - 10.2 mg/dL 06/30/2022 11:18 AM [facility] [employer] [facility] BUN 47(H) 6 - 20 mg/dL 06/30/2022 11:18 AM [facility] [employer] [facility] CREATININE 9.78(H) 0.67 - 1.17 mg/dL 06/30/2022 11:18 AM [facility] [employer] [facility] GLUCOSE 241(H) 74 - 99 mg/dL 06/30/2022 11:18 AM [facility] [employer] [facility] TOTAL PROTEIN 6.6(L) 6.7 - 8.6 g/dL 06/30/2022 11:18 AM [facility] [employer] [facility] ALBUMIN 3.1(L) 3.5 - 5.2 g/dL 06/30/2022 11:18 AM [facility] BILIRUBIN TOTAL 0.4 0.3 - 1.2 mg/dL 06/30/2022 11:18 AM [facility] ALKALINE PHOSPHATASE 106 40 - 129 U/L 06/30/2022 11:18 AM [facility] AST 23 <41 U/L 06/30/2022 11:18 AM [facility] ALT 31 <42 U/L 06/30/2022 11:18 AM [facility] GFR 6(L) >=60 mL/min/1.7 3 sq meter 06/30/2022 11:18 AM [facility] Comment:eGFR calculated with 2020 CKD-EPI equation. Vegetarian diet, extremely high or low muscle mass, and may affect results. Cystatin C with Glomerular Filtration Rate is a suitable alternative for these patients. ANION GAP 18(H) 8 - 16 mmol/L 06/30/2022 11:18 AM [facility] Blood Venipuncture / Unknown 06/30/2022 5:46 AM AIR TECHNICIAN 06/30/2022 10:40 AM [facility] - 06/30/2022 11:18 AM AIR TECHNICIAN Samples containing indocyanine green cause interferences on Total and/or Direct Bilirubin and must not be measured. [employer] Clifford [facility] CHEMISTRY ORDERABLES F inal Result [facility]# [id number] [address] [place] [address] * (ABNORMAL) CBC WITH DIFFERENTIAL (06/30/2022 5:46 AM AIR TECHNICIAN) WBC 3.7(L) 4.0 - 9.8 K/uL 06/30/2022 10:49 AM [facility] RBC 2.76(L) 4.50 - 5.40 M/uL 06/30/2022 10:49 AM [facility] HEMOGLOBIN 8.4(L) 13.6 - 16.5 g/dL 06/30/2022 10:49 AM [facility] HEMATOCRIT 25.6(L) 40.0 - 48.0 % 06/30/2022 10:49 AM [facility] MCV 92.8 82.0 - 99.0 fL 06/30/2022 10:49 AM [facility] MCH 30.4 27.2 - 32.6 pg 06/30/2022 10:49 AM [facility] MCHC 32.8 31.5 - 35.5 g/dL 06/30/2022 10:49 AM [facility] RDW 16.4(H) 11.5 - 14.5 % 06/30/2022 10:49 AM [facility] RDW-STDEV 54.4(H) 37.1 - 48.7 fL 06/30/2022 10:49 AM [facility] PLATELETS 390(H) 140 - 350 K/uL 06/30/2022 10:49 AM [facility] MPV 10.0 9.3 - 12.4 fL 06/30/2022 10:49 AM [facility] NEUTROPHILS 43 % 06/30/2022 10:49 AM [facility] LYMPHOCYTES 32 % 06/30/2022 10:49 AM [facility] MONOCYTES 15 % 06/30/2022 10:49 AM [facility] EOSINOPHILS 8 % 06/30/2022 10:49 AM [facility] BASOPHILS 1 % 06/30/2022 10:49 AM [facility] IMMATURE GRANULOCYTES 1 % 06/30/2022 10:49 AM [facility] Comment:IG (Immature Granulo cyte) count includes Metamyelocytes, Myelocytes, and Promyelocytes NEUTROPHIL ABSOLUTE 1.57(L) 1.90 - 7.00 K/uL 06/30/2022 10:49 AM [facility] LYMPHOCYTE ABSOLUTE 1.16 0.70 - 4.50 K/uL 06/30/2022 10:49 AM AIR TECHNICIAN [facility] MONOCYTE ABSOLUTE 0.56 0.10 - 1.30 K/uL 06/30/2022 10:49 AM AIR TECHNICIAN [facility] LABORATORY [facility] EOSINOPHIL ABSOLUTE 0.29 0.00 - 0.70 K/uL 06/30/2022 10:49 AM AIR TECHNICIAN [facility] LABORATORY [facility] BASOPHILS ABSOLUTE 0.03 0.00 - 0.20 K/uL 06/30/2022 10:49 AM AIR TECHNICIAN [facility] IMMATURE GRANULOCYTES ABSOLUTE 0.05(H) 0.00 - 0.03 K/uL 06/30/2022 10:49 AM [facility] Blood Venipuncture / Unknown 06/30/2022 5:46 AM AIR TECHNICIAN 06/30/2022 10:40 AM AIR TECHNICIAN Avni Clifford [facility] HEMATOLOGY ORDERABLES Final Result [facility] Puridify [facility] CLIA# [id number] [address] [facility] D[address] [place] [address] * (ABNORMAL) VITAMIN D 25 HYDROXY (06/30/2022 5:46 AM AIR TECHNICIAN) Pathologist [facility] VITAMIN D TOTAL (25OH) 17(L) 30 - 100 ng/mL 06/30/2022 11:29 AM AIR TECHNICIAN [facility] [employer] [facility] Blood Venipuncture / Unknown 06/30/2022 5:46 AM AIR TECHNICIAN 06/30/2022 10:40 AM AIR TECHNICIAN Narrative [facility] LABORATORY [facility] - 06/30/2022 11:29 AM AIR TECHNICIAN Interpretive Data Chart: Deficient: ? 0 - 20 ng/mL Insufficient: ?21 - 29 ng/mL Sufficient: ?30 - 100 ng/mL Increased Risk of Hypercalciuria: ??>100 ng/ml Toxic: ? >150 ng/ml [employer] CHEMISTRY ORDERABLES F inal Result Performing Organization Address [facility] Phone Number [facility] [employer] [facility]# [id number] [address] [place] [address] * VITAMIN B12 LEVEL (06/30/2022 5:46 AM AIR TECHNICIAN) VITAMIN B12 1,178 232 - 1,245 pg/mL 06/30/2022 11:29 AM AIR TECHNICIAN [facility] [employer] [facility] Comment:It has been reported that between 5 to 10% of patients with values between 200 and 400 pg/mL may experience neuropsychiatric and hematologic abnormalities due to occult B12 deficiency. Less than 1% of patients with values above 400 pg/mL will have symptoms. Blood Venipuncture / Unknown 06/30/2022 5:46 AM AIR TECHNICIAN 06/30/2022 10:40 AM AIR TECHNICIAN [employer] Her[employer] CHEMISTRY ORDERABLES F inal Result Performing Organization Address [facility] Phone Number [facility] [employer] [facility]# [id number] [address] [place] [address] * TSH REFLEXIVE (06/30/2022 5:46 AM AIR TECHNICIAN) TSH 3.75 0.27 - 4.20 uIU/mL 06/30/2022 11:22 AM AIR TECHNICIAN [facility] [employer] [facility] Blood Venipuncture / Unknown 06/30/2022 5:46 AM AIR TECHNICIAN 06/30/2022 10:40 AM AIR TECHNICIAN [employer] CHEMISTRY ORDERABLES F inal Result Performing Organization Address [facility]/ZIP Co de Phone Number [facility] CLIA# [id number] [address] [place] [address] * (ABNORMAL) POC GLUCOSE (06/29/2022 9:52 PM AIR TECHNICIAN) GLUCOSE POC 271(H) 74 - 99 mg/dL 06/29/2022 9:52 PM AIR TECHNICIAN [facility] SPECIMEN SOURCE, GLUCOSE POC Whole Blood 06/29/2022 9:52 PM AIR TECHNICIAN [facility] Blood, whole 06/29/2022 9:52 PM AIR TECHNICIAN 06/29/2022 10:00 PM AIR TECHNICIAN us Srinivas Jon MD POINT OF CARE TESTING Final Resu lt [facility] CLIA # [id number] [address] [place] [address] * (ABNORMAL) POC GLUCOSE (06/29/2022 4:28 PM AIR TECHNICIAN) GLUCOSE POC 265(H) 74 - 99 mg/dL 06/29/2022 4:28 PM AIR TECHNICIAN [facility] SPECIMEN SOURCE, GLUCOSE POC Whole Blood 06/29/2022 4:28 PM AIR TECHNICIAN [facility] Blood, whole 06/29/2022 4:28 PM AIR TECHNICIAN 06/29/2022 4:47 PM AIR TECHNICIAN us Srinivas Jon MD POINT OF CARE TESTING Final Resu lt [facility] CLIA # [id number] [address] [place] [address] documented in this encounter Visit Diagnoses Diagnosis [...] Coronary atherosclerosis of unspecified type of vessel, [place]og[place] or graft Hyperparathyroidism Hyperparathyroidism, unspecified Congestive heart [...] admin instructions, Routine Given 06/29/2022 4:57 PM AIR TECHNICIAN 650 mg acetaminophen (TYLENOL) tablet 650 mg 650 mg, Oral, EVERY 6 HOURS PRN, Starting on Mon06/29/22 at 2146, Until Mon07/08/22 at 1625, Other (See Comment), Pain, Moderate, Pain, Mild, See admin instructions, Routine Given 06/30/2022 8:01 AM AIR TECHNICIAN 650 mg aspirin (JOSEPH CHEWABLE) chewable tablet 81 mg 81 mg, Oral, DAILY, First dose (after last modification) on [place] 06/30/22 at 0900, Until Discontinued Given 07/02/2022 7:55 AM AIR TECHNICIAN 81 mg Given 07/01/2022 9:00 AM AIR TECHNICIAN 81 mg Given 06/30/2022 8:01 AM AIR TECHNICIAN 81 mg aspirin (ECOTRIN EC) tablet 81 mg 81 mg, Oral, DAILY, First dose on Mon07/03/22 at 0900, Until Discontinued, Routine Given 07/08/2022 7:28 AM AIR TECHNICIAN 81 mg Given 07/07/2022 8:42 AM AIR TECHNICIAN 81 mg Given 07/06/2022 7:36 AM AIR TECHNICIAN 81 mg atorvastatin (LIPITOR) tablet 80 mg 80 mg, Oral, DAILY, First dose (after last modification) on [place] 06/30/22 at 0900, Until Discontinued Given 07/08/2022 7:28 AM AIR TECHNICIAN 80 mg Given 07/07/2022 8:43 AM AIR TECHNICIAN 80 mg Given 07/06/2022 7:37 AM AIR TECHNICIAN 80 mg calcitRIOL (ROCALTROL) capsule 0.25 mcg 0.25 mcg, Oral, DAILY, First dose (after last modification) on [place] 06/30/22 at 0900, Until Discontinued Given 07/08/2022 7:27 AM AIR TECHNICIAN 0.25 mcg Given 07/07/2022 8:43 AM AIR TECHNICIAN 0.25 mcg Given 07/06/2022 7:35 AM AIR TECHNICIAN 0.25 mcg calcium acetate (CALPHRON) tablet 667 mg 667 mg, Oral, THREE TIMES DAILY BEFORE MEALS, First dose (after last modification) on Mon06/29/22 at 1630, Until Discontinued Given 07/08/2022 1:18 PM AIR TECHNICIAN 667 mg Given 07/08/2022 7:30 AM AIR TECHNICIAN 667 mg Given 07/07/2022 6:12 PM AIR TECHNICIAN 667 mg cetirizine (ZyrTEC) tablet 5 mg 5 mg, Oral, DAILY PRN, Starting on Mon06/29/22 at 1448, Until Mon07/08/22 at 1625, Congestion, Allergies, Rhinitis, Routine Given 06/30/2022 8:01 AM AIR TECHNICIAN 5 mg cloNIDine (OSUBXAIS-CMF-9) 0.1 mg/24 hr transdermal patch 1 Patch 1 Patch, Transdermal, EVERY 7 DAYS, First dose on [place] 06/30/22 at 0600, Until Discontinued, Routine Applied 06/30/2022 5:47 AM AIR TECHNICIAN 1 Patch Arm, Right Upper clopidogreL (PLAVIX) tablet 75 mg 75 mg, Oral, DAILY, First dose (after last modification) on [place] 06/30/22 at 0900, Until Discontinued Given 07/08/2022 7:28 AM AIR TECHNICIAN 75 mg Given 07/07/2022 8:43 AM AIR TECHNICIAN 75 mg Given 07/06/2022 7:35 AM AIR TECHNICIAN 75 mg colchicine (COLCRYS) tablet 0.6 mg 0.6 mg, Oral, EVERY 48 HOURS, First dose on [place] 06/30/22 at 0900, Until Discontinued, Routine Given 07/08/2022 7:28 AM AIR TECHNICIAN 0.6 mg Given 07/06/2022 7:35 AM AIR TECHNICIAN 0.6 mg Given 07/04/2022 8:26 AM AIR TECHNICIAN 0.6 mg darbepoetin genia (ARANESP) 100 mcg/0.5 mL injection 100 mcg 100 mcg, subCUT, EVERY 7 DAYS, First dose on [place] 07/03/22 at 0900, Until Discontinued, Routine, Reason for treatment with Epoetin/Darbepoetin: Anemia of Chronic Kidney Disease (on dialysis) Given 07/03/2022 10:05 AM AIR TECHNICIAN 100 mcg Arm, Left Upper doxycycline monohydrate (MONODOX) capsule 50 mg 50 mg, Oral, EVERY 12 HOURS (BlD), First dose on Mon06/29/22 at 2100, Until Discontinued, Routine, Antibiotic Indication: Intra-abdominal infection / Fecal Contamination, Is sepsis suspected? Unlikely Given 07/07/2022 8:43 AM AIR TECHNICIAN 50 mg Given 07/06/2022 8:18 PM AIR TECHNICIAN 50 mg Given 07/06/2022 7:36 AM AIR TECHNICIAN 50 mg doxycycline monohydrate (MONODOX) capsule 50 mg 50 mg, Oral, EVERY 12 HOURS (BlD), 5 doses, First dose (after last modification) on [place] 07/07/22 at 2100, Last dose on 07/09/22 at 2100, Routine, Antibiotic Indication: Intra-abdominal infection / Fecal Contamination, Is sepsis suspected? Unlikely Given 07/08/2022 7:29 AM AIR TECHNICIAN 50 mg Given 07/07/2022 9:41 PM AIR TECHNICIAN 50 mg ezetimibe (ZETIA) tablet 10 mg 10 mg, Oral, DAILY, First dose on [place] 06/30/22 at 0900, Until Discontinued, Routine Given 07/08/2022 7:28 AM AIR TECHNICIAN 10 mg Given 07/07/2022 8:42 AM AIR TECHNICIAN 10 mg Given 07/06/2022 7:37 AM AIR TECHNICIAN 10 mg folic acid-Vit B6-Vit B12 (FOLTX) per tablet 1 Tablet 1 Tablet, Oral, DAILY, First dose on Mon06/29/22 at 1500, Until Discontinued, Routine Given 07/08/2022 7:29 AM AIR TECHNICIAN 1 Tablet Given 07/07/2022 8:43 AM AIR TECHNICIAN 1 Tablet Given 07/06/2022 7:36 AM AIR TECHNICIAN 1 Tablet furosemide (LASIX) tablet 40 mg 40 mg, Oral, TWO TIMES DAILY, 7 HOURS APART, First dose (after last modification) on Mon07/04/22 at 1500, Until Discontinued, Routine Given 07/04/2022 4:0 0 PM AIR TECHNICIAN 40 mg furosemide (LASIX) tablet 80 mg 80 mg, Oral, TWO TIMES DAILY, 7 HOURS APART, First dose on Mon06/29/22 at 1500, Until Discontinued, Routine Given 07/04/2022 8:26 AM AIR TECHNICIAN 80 mg Given 07/03/2022 3:50 PM AIR TECHNICIAN 80 mg Given 07/03/2022 7:47 AM AIR TECHNICIAN 80 mg furosemide (LASIX) tablet 80 mg 80 mg, Oral, DAILY, First dose (after last modification) on Mon07/05/22 at 0900, Until Discontinued, Routine Given 07/08/2022 7:29 AM AIR TECHNICIAN 80 mg Given 07/07/2022 8:42 AM AIR TECHNICIAN 80 mg Given 07/06/2022 7:36 AM AIR TECHNICIAN 80 mg gentamicin (GARAMYCIN) 0.1 % topical ointment Topical, DAILY, First dose (after last modification) on Mon06/30/22 at 0900, Until Discontinued Given 07/04/2022 9:00 AM AIR TECHNICIAN Other (Comment) Given 07/01/2022 5:00 PM AIR TECHNICIAN A bdominal Tissue Given 06/30/2022 9:00 AM AIR TECHNICIAN Ot her (Comment) heparin injection 5,000 Units 5,000 Units, subCUT, EVERY 8 HOURS, First dose (after last modification) on Mon06/29/22 at 2100, Until Discontinued Given 07/08/2022 5:00 AM AIR TECHNICIAN 5,000 Units Abdomen, Left Lower Quadrant Given 07/07/2022 9:41 PM AIR TECHNICIAN 5,000 Units A bdomen, Left Lower Quadrant Given 07/07/2022 3:52 PM AIR TECHNICIAN 5,000 Units A bdominal Tissue HYDROcodone-acetaminophen (NORCO) 5-325 mg per tablet 1 Tablet 1 Tablet, Oral, EVERY 6 HOURS PRN, Starting on Mon06/29/22 at 2147, Until Mon07/08/22 at 1625, Pain (See admin instructions), Pain, Severe, Routine Given 07/06/2022 8:17 PM AIR TECHNICIAN 1 Tablet Given 07/05/2022 8:13 PM AIR TECHNICIAN 1 Tablet Given 07/04/2022 4:00 PM AIR TECHNICIAN 1 Tablet insulin aspart pump basal (NovoLOG) 100 unit/mL infusion subCUT, THREE TIMES DAILY, First dose on Mon06/29/22 at 2001, Until Discontinued, Routine, At rehab the patient must supply own pump insulin Acknowledged 07/08/2022 8:01 AM AIR TECHNICIAN 1.7 Units/hr Abdomen, Left Upper Quadrant Acknowledged 07/08/2022 3:01 AM AIR TECHNICIAN 5.1 Units/hr Abdomen, Left Lower Quadrant Acknowledged 07/07/2022 8:01 PM AIR TECHNICIAN 5.8 Units/hr Abdomen, Left Lower Quadrant insulin lispro (HumaLOG) variable dose injection subCUT, FOUR TIMES DAILY WITH MEALS AND AT BEDTIME, First dose on Mon06/29/22 at 1700, Until Discontinued, Routine Given 07/07/2022 5:00 PM AIR TECHNICIAN 6.6 Units Abdom inal Tissue Given 07/03/2022 4:51 PM AIR TECHNICIAN 7.2 Units Ab domen, Left Upper Quadrant Given 07/03/2022 12:16 PM AIR TECHNICIAN 10.35 Units Abdomen, Left Lower Quadrant isosorbide mononitrate (IMDUR) SR 24 hour tablet 30 mg 30 mg, Oral, DAILY, First dose (after last modification) on Mon06/30/22 at 0900, Until Discontinued Given 07/08/2022 7:30 AM AIR TECHNICIAN 30 mg Given 07/07/2022 8:43 AM AIR TECHNICIAN 30 mg Given 07/06/2022 7:34 AM AIR TECHNICIAN 30 mg losartan (COZAAR) tablet 12.5 mg 12.5 mg, Oral, DAILY, First dose (after last modification) on Mon06/30/22 at 0900, Until Discontinued, On hold since Mon06/30/2022 at 1114 until manually unheld Given 06/30/2022 8:01 AM AIR TECHNICIAN 12.5 mg melatonin tablet 6 mg 6 mg, Oral, DAILY AT BEDTIME, First dose on Mon06/29/22 at 2100, Until Discontinued, Routine Given 07/07/2022 9:41 PM AIR TECHNICIAN 6 mg Given 07/06/2022 8:18 PM AIR TECHNICIAN 6 mg Given 07/05/2022 8:14 PM AIR TECHNICIAN 6 mg metoprolol tartrate (LOPRESSOR) tablet 12.5 mg 12.5 mg, Oral, TWO TIMES DAILY, First dose (after last modification) on Mon07/04/22 at 2100, Until Discontinued Given 07/08/2022 7:29 AM AIR TECHNICIAN 12.5 mg Given 07/07/2022 9:45 PM AIR TECHNICIAN 12.5 mg Given 07/07/2022 8:43 AM AIR TECHNICIAN 12.5 mg metoprolol tartrate (LOPRESSOR) tablet 25 mg 25 mg, Oral, TWO TIMES DAILY, First dose (after last modification) on Mon06/29/22 at 2100, Until Discontinued Given 07/04/2022 8:26 AM AIR TECHNICIAN 25 mg Given 07/03/2022 8:11 PM AIR TECHNICIAN 25 mg Given 07/03/2022 7:47 AM AIR TECHNICIAN 25 mg mineral oil-white petrolatum-ceresin (EUCERIN) topical cream Topical, DAILY, First dose on Tu07/05/22 at 1115, Until Discontinued, RoutineIndications:Abdominal dryness Given 07/08/2022 7:36 AM AIR TECHNICIAN Arm, Left Given 07/07/2022 9:00 AM AIR TECHNICIAN Ab domen, Right Lower Quadrant Given 07/06/2022 12:34 PM AIR TECHNICIAN A rm, Left New Admission Meds - retrieve upon admission 1. Remove admission medications for this patient from the Comp 1 [employer] machine on evening of admission 2. Acknowledge this order on the MAR (only after meds have been removed from [employer]), See Admin Instructions, EVERY 4 HOURS, 1 dose, First dose on Mon06/29/22 at 1600 Given 06/29/2022 4:00 PM AIR TECHNICIAN Other (Comment) pantoprazole (PROTONIX) tablet 40 mg 40 mg, Oral, DAILY, First dose (after last modification) on [place] 06/30/22 at 0600, Until Discontinued Given 07/08/2022 5:59 AM AIR TECHNICIAN 40 mg Given 07/07/2022 6:00 AM AIR TECHNICIAN 40 mg Given 07/06/2022 7:08 AM AIR TECHNICIAN 40 mg peg 429-[id number]-pvlxwucx 1-0.2-0.2 % ophthalmic solution 1 Drop 1 Drop, Both Eyes, FOUR TIMES DAILY, First dose (after last modification) on Mon06/29/22 at 1800, Until Discontinued Given 07/08/2022 1:18 PM AIR TECHNICIAN 1 Drop Given 07/08/2022 7:27 AM AIR TECHNICIAN 1 Drop Given 07/07/2022 9:41 PM AIR TECHNICIAN 1 Drop potassium chloride (KLOR-CON) SR tablet 20 mEq 20 mEq, Oral, DAILY WITH BREAKFAST, First dose on Mon07/03/22 at 0800, Until Discontinued, Routine Given 07/04/2022 8:26 AM AIR TECHNICIAN 20 mEq Given 07/03/2022 7:46 AM AIR TECHNICIAN 20 mEq potassium chloride (KLOR-CON) SR tablet 40 mEq 40 mEq, Oral, ONE TIME ONLY, 1 dose, On Mon07/01/22 at 1100, Routine Given 07/01/2022 11:00 AM AIR TECHNICIAN 40 mEq potassium chloride (KLOR-CON) SR tablet 40 mEq 40 mEq, Oral, ONE TIME ONLY, 1 dose, On Mon07/02/22 at 2230, Routine Given 07/03/2022 5:33 AM AIR TECHNICIAN 40 mEq ranolazine ER (RANEXA) SR 12 hour tablet 500 mg 500 mg, Oral, EVERY 12 HOURS (BlD), First dose on Mon06/29/22 at 2100, Until Discontinued, Routine Given 07/08/2022 7:30 AM AIR TECHNICIAN 500 mg Given 07/07/2022 9:41 PM AIR TECHNICIAN 500 mg Given 07/07/2022 9:00 AM AIR TECHNICIAN 500 mg tiZANidine (ZANAFLEX) tablet 2 mg 2 mg, Oral, EVERY 8 HOURS, First dose on Mon06/30/22 at 1300, Until Discontinued, Routine Given 07/02/2022 4:47 AM AIR TECHNICIAN 2 mg Given 07/01/2022 9:09 PM AIR TECHNICIAN 2 mg Given 07/01/2022 1:49 PM AIR TECHNICIAN 2 mg tiZANidine (ZANAFLEX) tablet 2 mg 2 mg, Oral, EVERY 12 HOURS, First dose (after last modification) on Mon07/07/22 at 1815, Until Discontinued, Routine Given 07/08/2022 5:59 AM AIR TECHNICIAN 2 mg Given 07/07/2022 6:11 PM AIR TECHNICIAN 2 mg tiZANidine (ZANAFLEX) tablet 4 mg 4 mg, Oral, EVERY 8 HOURS, First dose (after last modification) on [facility] 07/02/22 at 1300, Until Discontinued, Routine Given 07/07/2022 6:01 AM AIR TECHNICIAN 4 mg Given 07/06/2022 8:21 PM AIR TECHNICIAN 4 mg Given 07/06/2022 12:29 PM AIR TECHNICIAN 4 mg documented in this encounter Active and Recently Administered Medications Times are shown in AIR TECHNICIAN. Scheduled Medication Order 07/06/2022 07/07/2022 07/08/2022 aspirin (ECOTRIN EC) tablet 81 mg 81 mg, Oral, DAILY, First dose on [place] 07/03/22 at 0900, Until Discontinued, Routine 0736 (Given [...] Lantigua RN) 0843 (Given - Provider: Fariha Alcazra LPN) 0727 (Given - Provider: Leonela Lantigua [...] modification) on Mon06/30/22 at 0900, Until Discontinued 0735 (Given - Provider: Leonela Lantigua RN)0900 (Canceled Entry - Provider: Leonela Lantigua RN) 0843 (Given - Provider: Fariha Alcazar LPN) 0728 (Given - Provider: Leonela Lantigua RN)0900 (Canceled Entry - Provider: Leonela Lantigua RN) colchicine (COLCRYS) tablet 0.6 mg 0.6 mg, Oral, EVERY 48 HOURS, First dose on Mon06/30/22 at 0900, Until Discontinued, Routine 0735 (Given [...] 2140 (Given - Provider: Shawn Silva RN) 0729 (Given - Provider: Leonela Lantigua RN)0900 [...] Provider: GODWIN Yang)2141 (Given - Provider: Shawn Silva RN) 0500 (Given - Provider: Shawn Silva RN)1318 (Refused - Provider: Leonela Lantigua RN) insulin aspart pump basal (NovoLOG) 100 unit/mL infusion subCUT, THREE TIMES DAILY, First dose on Mon06/29/22 at 2001, Until Discontinued, Routine, At rehab the patient must supply own pump insulin 0301 (Acknowledged - Provider: Kamryn Browning RN)0801 (Acknowledged - Provider: Leonela Lantigua RN)2000 (Acknowledged - Provider: Kamryn Browning RN) 030 (Acknowledged - Provider: Kamryn Browning RN)0801 (Canceled Entry - Provider: Fariha Alcazar LPN)2000 (Acknowledged - Provider: Shawn Silva RN - Comment: pt states insulin pump provies 5.8 units currently) 030 (Acknowledged - Provider: Shawn Silva RN - [...] modification) on Mon06/30/22 at 0900, Until Discontinued 002 (Order Unhold - Provider: Jasmin Bradley MD)0734 [...] modification) on Mon07/04/22 at 2100, Until Discontinued 734 (Given - Provider: Leonela Lantigua RN)0900 (Canceled Entry - Provider: Leonela Lantigua RN)2021 (Given - Provider: Kamryn Browning RN) 0843 (Given - Provider: Fariha Alcazar LPN)214 (Given - Provider: Shawn Silva RN - Comment: bp 150/73) 0729 (Given - Provider: Leonela Lantigua RN)0900 (Canceled Entry - Provider: Leonela Latnigua RN) mineral oil-white petrolatum-ceresin (EUCERIN) topical cream [...] Browning RN) 0559 (Given - Provider: Shawn Silva RN) peg [id number]-oqvodgefjcmj-xrvigm in 1-0.2-0.2 % ophthalmic solution 1 Drop 1 Drop, Both Eyes, FOUR TIMES DAILY, First dose (after last modification) on Mon06/29/22 at 1800, Until Discontinued 0737 (Given - Provider: Leonela Lantigua RN)0900 (Canceled Entry - Provider: Leonela Lantigua RN)1229 (Given - Provider: Leonela Lantigua RN)170 (Given - Provider: Leonela Lantigua RN)202 (Given - Provider: Kamryn Browning RN) 0844 (Given - Provider: Fariha Alcazar LPN)1553 (Given - Provider: GODWIN Yang)1813 (Given - Provider: GODWIN Yang)2141 (Given - Provider: Shawn Silva RN) 0727 (Given - Provider: Leonela Lantigua RN)0900 [...] RN) 0900 (Given - Provider: Fariha Alcazar LPN)2141 (Given - Provider: Shawn Silva RN) 0730 (Given - Provider: Leonela Lantigua RN)0900 (Canceled Entry - Provider: Leonela Lantigua RN) tiZANidine (ZANAFLEX) tablet 2 mg 2 mg, Oral, EVERY 12 HOURS, First dose (after last modification) on [place] 07/07/22 at 1815, Until Discontinued, Routine 1811 (Given - Provider: GODWIN Yang) 0559 (Given - Provider: Shawn Silva RN) tiZANidine (ZANAFLEX) tablet 4 mg (CANCELED) 4 mg, Oral, EVERY 8 HOURS, First dose (after last modification) on 07/02/22 at 1300, Until Discontinued, Routine 0702 (Given - Provider: Kamryn Browning RN)1229 (Given - Provider: Leonela Lantigua RN)202 (Given - Provider: Kamryn Browning RN) 0601 (Given - Provider: Kamryn Browning RN) [...] Routine documented in this encounter Care Teams Morgue Technician Relationship Specialty Start Date End Date Aditya Castro MD PCP - General Student in an Organized Health Care Education/Training Program 09/11/18 documented as of this encounter
--- OUTSIDE RECORDS SUMMARY | 2024-09-07 19:06 | XMS_ITS | Encounter Summary ---
Author Organization [facility] Address [address] [place] [address] Care Team Providers Care Cell Maker Name Role Phone Aditya Castro MD Primary Care Provider [phone] Reason for Visit * Reason Comments Follow Up 32 Month f/u Procrit Encounter Details Date Type Department Care Team (Late st Contact Info) Description 07/31/2019 8:45 AM AIRVEYOR OPERATOR Office Visit [facility] Oncology and Hematology - [place] [address] [facility] [address] [place] [address] Fernando Schmid MD [address] [facility] [address] [place] [address] Anemia of chronic renal failure, [...] Comments Blood Pressure 120/56 07/31/2019 9:00 AM AIRVEYOR OPERATOR Pulse 66 07/31/2019 9:00 AM AIRVEYOR OPERATOR Temperature 36.7 ??C (98.1 ??F) 07/31/2019 9:00 AM CS T Respiratory Rate - - Oxygen Saturation 97% 07/31/2019 9:00 AM AIRVEYOR OPERATOR Inhaled Oxygen Concentration - - Weight 117.9 kg (260 lb) 07/31/2019 9:00 AM AIRVEYOR OPERATOR Height 175.3 cm (5' 9 ) 07/31/2019 9:00 AM AIRVEYOR OPERATOR Body Mass Index 38.4 07/31/2019 9:00 AM AIRVEYOR OPERATOR documented in this encounter Progress Notes [...] extremity DVT. Resolved. 07/31/2019 Fernando Schmid MD EYOR OPERATOR documented in this encounter Plan of Treatment Not on file documented as of this encounter Results * BASIC METABOLIC PANEL (10/30/2019) Blood us Fernando Schmid MD CHEMISTRY ORDERABLES Final Resu lt NON [facility] * CBC WITH DIFFERENTIAL (10/16/2019) Blood Fernando Schmid MD HEMATOLOGY ORDERABLES Final Res ult EXTERNAL LAB documented in this encounter Visit Diagnoses Diagnosis Anemia of chronic renal failure, stage 4 (severe)- Primary documented in this encounter Care Teams Cell Maker Relationship Specialty Start Date End Date Aditya Castro MD PCP - General Student in an Organized Health Care Education/Training Program 09/11/18 documented as of this encounter
--- OUTSIDE RECORDS SUMMARY | 2024-09-07 19:06 | XMS_ITS | Encounter Summary ---
Author Organization [facility] Address [address] [place] [address] Care Team Providers Care Student Union Consultant Name Role Phone Aditya Castro MD Primary Care Provider [phone] Encounter Details Date Type Department Care Team (Late st Contact Info) Description 06/18/2019 Orders Only [facility] Oncology and Hematology - [place] [address] [facility] [address] [place] [address] Fernando Schmid MD [address] [facility] [address] [place] [address] Anemia in stage 4 chronic [...] * (ABNORMAL) CBC WITH DIFFERENTIAL (06/12/2019) Blood us Fernando Schmid MD HEMATOLOGY ORDERABLES Final Res ult NON [facility] documented in this encounter Visit Diagnoses Diagnosis Anemia in stage 4 chronic kidney disease documented in this encounter Care Teams Student Union Consultant Relationship Specialty Start Date End Date Aditya Castro MD PCP - General Student in an Organized Health Care Education/Training Program 09/11/18 documented as of this encounter
--- OUTSIDE RECORDS SUMMARY | 2024-09-07 19:06 | XMS_ITS | Encounter Summary ---
Author Organization [facility] Address [address] [place] [address] Care Team Providers Care [employer] Certified Internetwork Expert Name Role Phone Aditya Castro MD Primary Care Provider [phone] Reason for Visit * Reason Onset Date Comments Needs Orders Written 07/30/2019 Encounter Details Date Type Department Care Team (Late st Contact Info) Description 07/30/2019 Telephone [facility] Oncology and Hematology - [place] [address] [place] [address] [facility] [address] [place] [address] Fernando Schmid MD [address] [facility] [address] [place] [address] Needs Orders Written Social History [...] to have for insurance approval for procrit. [employer] documented in this encounter Plan of Treatment Not on file documented as of this encounter Visit Diagnoses Diagnosis Anemia of chronic renal failure, stage 4 (severe)- Primary Anemia in stage 4 chronic kidney disease documented in this encounter Care Teams [employer] Certified Internetwork Expert Relationship Specialty Start Date End Date Aditya Castro MD PCP - General Student in an Organized Health Care Education/Training Program 09/11/18 documented as of this encounter
--- OUTSIDE RECORDS SUMMARY | 2024-09-07 19:06 | XMS_ITS | Encounter Summary ---
Author Organization [facility] [email or web address] [facility] Address [address] [place] [address] Care Team Providers Care Coreroom Foundry Laborer Name Role Phone Aditya Castro MD Primary Care Provider [phone] Reason for Visit * Reason Onset Date Comments Needs Orders Written 07/30/2019 Encounter Details Date Type Department Care Team (Late st Contact Info) Description 07/30/2019 Telephone [facility] Oncology and Hematology - [place] [address] [place] [address] [facility] 200 [place] [address] Fernando Schmid MD [address] [facility] [address] [place] [address] Needs Orders Written Social History [...] to have for insurance approval for procrit. LEDGE MANAGEMENT CONSULTANT documented in this encounter Plan of [...] ORDERABLES Final Resu lt Performing Organization Address City/[facility]/ZIP Co de Phone Number NON [facility] * IRON, TIBC, AND PERCENT SATURATION (08/15/2019) Blood Fernando Schmid MD CHEMISTRY ORDERABLES Final Resu lt Performing Organization Address City/[facility]/ZIP Co de Phone Number NON [facility] documented in this encounter Visit Diagnoses Diagnosis Anemia of chronic renal failure, stage 4 (severe)- Primary Anemia in stage 4 chronic kidney disease documented in this encounter Care Teams Coreroom Foundry Laborer Relationship Specialty Start Date End Date Aditya Castro MD PCP - General Student in an Organized Health Care Education/Training Program 09/11/18 documented as of this encounter
--- OUTSIDE RECORDS SUMMARY | 2024-09-07 19:06 | XMS_ITS | Encounter Summary ---
Author Organization [facility] [employer] [facility] Address [address] [place] [address] Care Team Providers Care Tile Sprayer Name Role Phone Aditya Castro MD Primary Care Provider [phone] Reason for Visit * Reason Comments Follow Up 3 month f/u w/labs Encounter Details Date Type Department Care Team (Late st Contact Info) Description 10/30/2019 11:00 AM CDT Office Visit [facility] - [place] [address] [facility] 200 [place] [address] Fernando Schmid MD [address] [facility] [address] [place] [address] Anemia in stage 4 chronic [...] extremity documented in this encounter Care Teams Tile Sprayer Relationship Specialty Start Date End Date Aditya Castro MD PCP - General Student in an Organized Health Care Education/Training Program 09/11/18 documented as of this encounter
--- OUTSIDE RECORDS SUMMARY | 2024-09-07 19:06 | XMS_ITS | Encounter Summary ---
Author Organization [facility] Address [address] [place] [address] Care Team Providers Care Retention Representative Name Role Phone Aditya Castro MD Primary Care Provider [phone] Encounter Details Date Type Department Care Team (Late st Contact Info) Description 05/29/2019 Orders Only [facility] Oncology and Hematology - [place] [address] [facility] 200 [place] [address] Fernando Schmid MD [address] [facility] [address] [place] [address] Anemia in stage 4 chronic [...] * (ABNORMAL) CBC WITH DIFFERENTIAL (05/29/2019) Blood us Fernando Schmid MD HEMATOLOGY ORDERABLES Final Res ult NON [facility] documented in this encounter Visit Diagnoses Diagnosis Anemia in stage 4 chronic kidney disease documented in this encounter Care Teams Retention Representative Relationship Specialty Start Date End Date Aditya Castro MD PCP - General Student in an Organized Health Care Education/Training Program 09/11/18 documented as of this encounter
--- OUTSIDE RECORDS SUMMARY | 2024-09-07 19:06 | XMS_ITS | Encounter Summary ---
Author Organization [facility] Address [address] [place] [address] Care Team Providers Care Adjunct Faculty For Medical Terminology Name Role Phone Aditya Castro MD Primary Care Provider [phone] Encounter Details Date Type Department Care Team (Late st Contact Info) Description 04/26/2019 Orders Only [facility] Oncology and Hematology - [place] [address] [facility] 200 [place] [address] Fernando Schmid MD [address] [facility] [address] [place] [address] Anemia [...] * (ABNORMAL) CBC WITH DIFFERENTIAL (05/01/2019) Blood us Fernando Schmid MD HEMATOLOGY ORDERABLES Final Res ult [facility] * (ABNORMAL) BASIC METABOLIC PANEL (05/01/2019) Blood Fernando Schmid MD CHEMISTRY ORDERABLES Final Resu lt Performing Organization Address City/[facility]/ZIP Co de Phone Number EX[facility] LAB documented in this encounter Visit Diagnoses Diagnosis Anemia in stage 4 chronic kidney disease documented in this encounter Care Teams Adjunct Faculty For Medical Terminology Relationship Specialty Start Date End Date Aditya Castro MD PCP - General Student in an Organized Health Care Education/Training Program 09/11/18 documented as of this encounter
--- OUTSIDE RECORDS SUMMARY | 2024-09-07 19:06 | XMS_ITS | Encounter Summary ---
Author Organization [facility] Address [address] [place] [address] Care Team Providers Care Catering Sous Chef Name Role Phone Aditya Castro MD Primary Care Provider [phone] Encounter Details Date Type Department Care Team (Late st Contact Info) Description 07/23/2019 Orders Only [facility] Oncology and Hematology - [place] [address] [facility] 200 [place] [address] Fernando Schmid MD [address] [facility] [address] [place] [address] Anemia in stage 4 chronic [...] Results * CBC WITH DIFFERENTIAL (08/15/2019) Blood us Fernando Schmid MD HEMATOLOGY ORDERABLES Final Res ult [facility] LAB documented in this encounter Visit Diagnoses Diagnosis Anemia in stage 4 chronic kidney disease documented in this encounter Care Teams Catering Sous Chef Relationship Specialty Start Date End Date Aditya Castro MD PCP - General Student in an Organized Health Care Education/Training Program 09/11/18 documented as of this encounter
--- OUTSIDE RECORDS SUMMARY | 2024-09-07 19:07 | XMS_ITS | Encounter Summary ---
Author Organization [facility] Address [address] [place] [address] Care Team Providers Care System Software Developer Name Role Phone Aditya Castro MD Primary Care Provider [phone] Encounter Details Date Type Department Care Team (Late st Contact Info) Description 01/11/2019 Orders Only [facility] Oncology and Hematology - [place] [address] [facility] 200 [place] [address] Fernando Schmid MD [address] [facility] [address] [place] [address] Anemia in stage 4 chronic [...] (01/11/2019) Blood Fernando Schmid MD CHEMISTRY ORDERABLES Final Resu lt [facility] LAB * (ABNORMAL) CBC WITH DIFFERENTIAL (01/11/2019) Blood us Fernando Schmid MD HEMATOLOGY ORDERABLES Final Res ult Performing Organization Address City/[facility]/ZIP Co de Phone Number EXTERNAL LAB documented in this encounter Visit Diagnoses Diagnosis Anemia in stage 4 chronic kidney disease documented in this encounter Care Teams System Software Developer Relationship Specialty Start Date End Date Aditya Castro MD PCP - General Student in an Organized Health Care Education/Training Program 09/11/18 documented as of this encounter
--- OUTSIDE RECORDS SUMMARY | 2024-09-07 19:07 | XMS_ITS | Encounter Summary ---
Author Organization [facility] Address [address] [place] [address] Care Team Providers Care Stave Cutter Name Role Phone Aditya Castro MD Primary Care Provider [phone] Encounter Details Date Type Department Care Team (Late st Contact Info) Description 10/19/2018 Orders Only [facility] Oncology and Hematology - [place] [address] [phone] Tanna Costa RN Anemia in stage 4 [...] * (ABNORMAL) CBC WITH DIFFERENTIAL (10/23/2018) Blood us Fernando Schmid MD HEMATOLOGY ORDERABLES Final Res ult EX[facility] LAB documented in this encounter Visit Diagnoses Diagnosis Anemia in stage 4 chronic kidney disease documented in this encounter Care Teams Stave Cutter Relationship Specialty Start Date End Date Aditya Castro MD PCP - General Student in an Organized Health Care Education/Training Program 09/11/18 documented as of this encounter
--- OUTSIDE RECORDS SUMMARY | 2024-09-07 19:07 | XMS_ITS | Encounter Summary ---
Author Organization [facility] Address [address] [place] [address] Care Team Providers Care Balance Staff Inspector Name Role Phone Jhonatan Bellamy MD Primary Care Provider [phone] Encounter Details Date Type Department Care Team (Late st Contact Info) Description 07/31/2018 Orders Only [facility] Oncology and Hematology - [place] [address] [phone] Tanna Costa RN Anemia in stage 4 [...] Results * CBC WITH DIFFERENTIAL (07/31/2018) Blood us Fernando Schmid MD HEMATOLOGY ORDERABLES Final Res ult NON [facility] documented in this encounter Visit Diagnoses Diagnosis Anemia in stage 4 chronic kidney disease documented in this encounter Care Teams Balance Staff Inspector Relationship Specialty Start Date End Date Jhonatan Bellamy MD [address] [place] [address] PCP - General Family Practice 06/05/17 09/10/18 documented as of this encounter
--- OUTSIDE RECORDS SUMMARY | 2024-09-07 19:07 | XMS_ITS | Encounter Summary ---
Author Organization [facility] Address [address] [place] [address] Care Team Providers Care Mine Safety Manager Name Role Phone Jhonatan Bellamy MD Primary Care Provider [phone] Encounter Details Date Type Department Care Team (Late st Contact Info) Description 08/16/2018 Orders Only [facility] Oncology and Hematology - [place] [address] [phone] Tanna Costa RN Anemia in stage 4 [...] * (ABNORMAL) CBC WITH DIFFERENTIAL (08/16/2018) Blood us Fernando Schmid MD HEMATOLOGY ORDERABLES Final Res ult NON [facility] documented in this encounter Visit Diagnoses Diagnosis Anemia in stage 4 chronic kidney disease documented in this encounter Care Teams Mine Safety Manager Relationship Specialty Start Date End Date Jhonatan Bellamy MD [address] [place] [address] PCP - General Family Practice 06/05/17 09/10/18 documented as of this encounter
--- OUTSIDE RECORDS SUMMARY | 2024-09-07 19:07 | XMS_ITS | Encounter Summary ---
Author Organization [facility] Address [address] [place] [address] Care Team Providers Care Crack Off Person Name Role Phone Aditya Castro MD Primary Care Provider [phone] Reason for Visit * Reason Comments Follow Up Results * Eval and Treat (Routine) - Closed Specialty Diagnoses / Procedures Referred By Aguilar lora Referred To Contact Oncology Diagnoses N18.4 Procedures Office Visit level 3-5 Aditya Castro MD Phone: tel: fax: Fernando Schmid MD [address] [place] [address] Phone: tel: fax: Referral ID Status Reason Start Date Expiration Date Visits Re quested Visits Authorized [id number] Closed 10/23/2018 01/23/2019 1 6 Encounter Details Date Type Department Care Team (Late st Contact Info) Description 10/23/2018 10:45 AM FULFILLMENT SPECIALIST Office Visit [facility] Oncology and Hematology - [place] [address] [facility] 200 [place] [address] Fernando Schmid MD [address] [place] [address] Anemia in stage 4 chronic kidney [...] Comments Blood Pressure 165/69 10/23/2018 10:25 AM FULFILLMENT SPECIALIST Pulse 69 10/23/2018 10:25 AM FULFILLMENT SPECIALIST Temperature 36.9 ??C (98.4 ??F) 10/23/2018 1 0:25 AM FULFILLMENT SPECIALIST Respiratory Rate 18 10/23/2018 10:2 5 AM FULFILLMENT SPECIALIST Oxygen Saturation 96% 10/23/2018 10: 25 AM FULFILLMENT SPECIALIST Inhaled Oxygen Concentration - - Weight 122.8 kg (270 lb 11.2 oz) 2018 10:25 AM FULFILLMENT SPECIALIST Height 177.8 cm (5' 10 ) 10/23/2018 10: 25 AM FULFILLMENT SPECIALIST Body Mass Index 38.84 10/23/2018 10:25 AM FULFILLMENT SPECIALIST documented in this encounter Progress Notes * [...] by Dr. Reyes. 10/23/2018 Fernando Schmid MD ILLMENT SPECIALIST documented in this encounter Plan of Treatment Not on file documented as of this encounter Results * BASIC METABOLIC PANEL (01/11/2019) Blood Fernando Schmid MD CHEMISTRY ORDERABLES Final Resu lt Performing Organization Address City/[facility]/ZIP Co de Phone Number EXTERNAL LAB * (ABNORMAL) CBC WITH DIFFERENTIAL (01/11/2019) Blood Fernando Schmid MD HEMATOLOGY ORDERABLES Final Res ult Performing Organization Address City/[facility]/ZIP Co de Phone Number EXTERNAL LAB documented in this encounter Visit Diagnoses Diagnosis Anemia in stage 4 chronic kidney disease- Primary documented in this encounter Care Teams Crack Off Person Relationship Specialty Start Date End Date Aditya Castro MD PCP - General Student in an Organized Health Care Education/Training Program 09/11/18 documented as of this encounter
--- OUTSIDE RECORDS SUMMARY | 2024-09-07 19:07 | XMS_ITS | Encounter Summary ---
Author Organization [facility] Address [address] [place] [address] Care Team Providers Care Transit Survey Worker Name Role Phone Aditya Castro MD Primary Care Provider [phone] Encounter Details Date Type Department Care Team (Late st Contact Info) Description 09/10/[address] [facility] Oncology and Hematology - [place] [address] [facility] 200 [place] [address] Fernando Schmid MD [address] [facility] [address] [place] [address] Chronic deep vein thrombosis (DVT) [...] Results * CBC WITH DIFFERENTIAL (09/11/2018) Blood us Fernando Schmid MD HEMATOLOGY ORDERABLES Final Res ult Performing Organization Address City/[facility]/ZIP Co de Phone Number EXTERNAL LAB * (ABNORMAL) BASIC METABOLIC PANEL (09/11/2018) Blood us Fernando Schmid MD CHEMISTRY ORDERABLES Final Resu lt EXTERNAL LAB * US VENOUS DOPPLER LEG RIGHT (09/10/2018) Anatomical Region Laterality Modality Lower Extremity Other us Fernando Schmid MD US ORDERABLES Final Result documented in this encounter Visit Diagnoses Diagnosis Chronic deep vein thrombosis (DVT) of right lower extremity, unspecified vein documented in this encounter Care Teams Transit Survey Worker Relationship Specialty Start Date End Date Aditya Castro MD PCP - General Student in an Organized Health Care Education/Training Program 09/11/18 documented as of this encounter
--- OUTSIDE RECORDS SUMMARY | 2024-09-07 19:07 | XMS_ITS | Encounter Summary ---
Author Organization [facility] Address [address] [place] [address] Care Team Providers Care Spinning Room Worker Name Role Phone Jhonatan Bellamy MD Primary Care Provider [phone] Reason for Visit * Reason Comments Follow Up Results * Eval and Treat (Routine) - Closed Specialty Diagnoses / Procedures Referred By Aguilar t Referred To Contact Diagnoses N18.4, D63.1 Procedures Office Visit Jhonatan Bellamy MD [address] [place] [address] Phone: tel: fax: Fernando Schmid MD [address] [place] [address] Phone: tel: fax: Referral ID Status Reason Start Date Expiration Date Visits Re quested Visits Authorized [id number] Closed 06/15/2018 09/13/2018 1 6 Encounter Details Date Type Department Care Team (Late st Contact Info) Description 07/17/2018 11:00 AM COLLECTIONS SPECIALIST Office Visit [facility] Oncology and Hematology - [place] [address] [facility] 200 [place] [address] Fernando Schmid MD [address] [place] [address] Anemia of chronic renal failure, [...] Comments Blood Pressure 162/75 07/17/2018 11:07 AM COLLECTIONS SPECIALIST Pulse 60 07/17/2018 11:07 AM COLLECTIONS SPECIALIST Temperature 36.7 ??C (98 ??F) 07/17/2018 11: 07 AM COLLECTIONS SPECIALIST Respiratory Rate - - Oxygen Saturation 96% 07/17/2018 11: 07 AM COLLECTIONS SPECIALIST Inhaled Oxygen Concentration - - Weight 120.1 kg (264 lb 11.2 oz) 2017 11:07 AM COLLECTIONS SPECIALIST Height 177.8 cm (5' 10 ) 07/17/2018 11: 07 AM COLLECTIONS SPECIALIST Body Mass Index 37.98 07/17/2018 11:07 AM COLLECTIONS SPECIALIST documented in this encounter Progress Notes [...] is on Plavix. 07/17/2018 Fernando Schmid MD ECTIONS SPECIALIST documented in this encounter Plan of Treatment Not on file documented as of this encounter Visit Diagnoses Diagnosis Anemia of chronic renal failure, stage 4 (severe)- Primary Chronic deep vein thrombosis (DVT) of right lower extremity, unspecified vein documented in this encounter Care Teams Spinning Room Worker Relationship Specialty Start Date End Date Jhonatan Bellamy MD [address] [place] [address] PCP - General Family Practice 06/05/17 09/10/18 documented as of this encounter
--- OUTSIDE RECORDS SUMMARY | 2024-09-07 19:07 | XMS_ITS | Encounter Summary ---
Author Organization [facility] Address [address] [place] [address] Care Team Providers Care Inspector Outside Steam Distribution Name Role Phone Aditya Castro MD Primary Care Provider [phone] Encounter Details Date Type Department Care Team (Late st Contact Info) Description 11/21/2018 Orders Only [facility] Oncology and Hematology - [place] [address] [facility] 200 [place] [address] Fernando Schmid MD [address] [facility] [address] [place] [address] Anemia in stage 4 chronic [...] * (ABNORMAL) CBC WITH DIFFERENTIAL (11/21/2018) Blood us Fernando Schmid MD HEMATOLOGY ORDERABLES Final Res ult NON [facility] documented in this encounter Visit Diagnoses Diagnosis Anemia in stage 4 chronic kidney disease documented in this encounter Care Teams Inspector Outside Steam Distribution Relationship Specialty Start Date End Date Aditya Castro MD PCP - General Student in an Organized Health Care Education/Training Program 09/11/18 documented as of this encounter
--- OUTSIDE RECORDS SUMMARY | 2024-09-07 19:07 | XMS_ITS | Encounter Summary ---
Author Organization [facility] Address [address] [place] [address] Care Team Providers Care Farmworker Turkey Farm Name Role Phone Jhonatan Bellamy MD Primary Care Provider [phone] Encounter Details Date Type Department Care Team (Late st Contact Info) Description 07/31/2018 Orders Only [facility] Oncology and Hematology - [place] [address] [facility] 200 [place] [address] Fernando Schmid MD [address] [facility] [address] [place] [address] Anemia in [...] Results * CBC WITH DIFFERENTIAL (10/30/2019) Blood us Fernando Schmid MD HEMATOLOGY ORDERABLES Final Res ult NON [facility] * CBC WITH DIFFERENTIAL (07/12/2019) Blood Fernando Schmid MD HEMATOLOGY ORDERABLES Final Res ult Performing Organization Address City/[facility]/ZIP Co de Phone Number NON [facility] * (ABNORMAL) CBC WITH DIFFERENTIAL (06/12/2019) Blood Fernando Schmid MD HEMATOLOGY ORDERABLES Final Res ult Performing Organization Address [facility] Co de Phone Number NON [facility] * (ABNORMAL) CBC WITH DIFFERENTIAL (05/29/2019) Blood us Fernando Schmid MD HEMATOLOGY ORDERABLES Final Res ult Performing Organization Address [facility] Co de Phone Number NON [facility] * (ABNORMAL) CBC WITH DIFFERENTIAL (05/15/2019) Blood us Fernando Schmid MD HEMATOLOGY ORDERABLES Final Res ult Performing Organization Address [facility]/ZIP Co de Phone Number NON [facility] * (ABNORMAL) CBC WITH DIFFERENTIAL (04/05/2019) Blood us Fernando Schmid MD HEMATOLOGY ORDERABLES Final Res ult NON [facility] * (ABNORMAL) CBC WITH DIFFERENTIAL (03/20/2019) Blood Fernando Schmid MD HEMATOLOGY ORDERABLES Final Res ult NON [facility] * (ABNORMAL) CBC WITH DIFFERENTIAL (03/06/2019) Blood us Fernando Schmid MD HEMATOLOGY ORDERABLES Final Res ult NON [facility] * CBC WITH DIFFERENTIAL (02/20/2019) Blood Fernando Schmid MD HEMATOLOGY ORDERABLES Final Res ult NON [facility] * (ABNORMAL) CBC WITH DIFFERENTIAL (02/08/2019) Blood us Fernando Schmid MD HEMATOLOGY ORDERABLES Final Res ult Performing Organization Address [facility] Co de Phone Number NON [facility] * (ABNORMAL) CBC WITH DIFFERENTIAL (01/29/2019) Blood us Fernando Schmid MD HEMATOLOGY ORDERABLES Final Res ult Performing Organization Address [facility]/ZIP Co de Phone Number NON [facility] * (ABNORMAL) CBC WITH DIFFERENTIAL (01/25/2019) Blood us Fernando Schmid MD HEMATOLOGY ORDERABLES Final Res ult NON [facility] * (ABNORMAL) CBC WITH DIFFERENTIAL (12/04/2018) Blood us Fernando Schmid MD HEMATOLOGY ORDERABLES Final Res ult NON [facility] * (ABNORMAL) CBC WITH DIFFERENTIAL (11/21/2018) Blood us Fernando Schmid MD HEMATOLOGY ORDERABLES Final Res ult Performing Organization Address City/[facility]/ZIP Co de Phone Number NON [facility] * CBC WITH DIFFERENTIAL (09/25/2018) Blood us Fernando Schmid MD HEMATOLOGY ORDERABLES Final Res ult NON [facility] * (ABNORMAL) CBC WITH DIFFERENTIAL (08/16/2018) Blood us Fernando Schmid MD HEMATOLOGY ORDERABLES Final Res ult Performing Organization Address [facility] Co de Phone Number NON [facility] * CBC WITH DIFFERENTIAL (07/31/2018) Blood us Fernando Schmid MD HEMATOLOGY ORDERABLES Final Res ult Performing Organization Address [facility] Co de Phone Number NON [facility] documented in this encounter Visit Diagnoses Diagnosis Anemia in stage 4 chronic kidney disease- Primary documented in this encounter Care Teams Farmworker Turkey Farm Relationship Specialty Start Date End Date Jhonatan Bellamy MD [address] [facility] [place] [address] PCP - General Family Practice 06/05/17 09/10/18 documented as of this encounter
--- OUTSIDE RECORDS SUMMARY | 2024-09-07 19:07 | XMS_ITS | Encounter Summary ---
Author Organization [facility] Address [address] [place] [address] Care Team Providers Care Deburrer Machine Name Role Phone Aditya Castro MD Primary Care Provider [phone] Encounter Details Date Type Department Care Team (Late st Contact Info) Description 03/20/2019 Orders Only [facility] Oncology and Hematology - [place] [address] [facility] 200 [place] [address] Fernando Schmid MD [address] [facility] [address] [place] [address] Anemia in stage 4 chronic [...] HEMATOLOGY ORDERABLES Final Res ult NON [facility] documented in this encounter Visit Diagnoses Diagnosis Anemia in stage 4 chronic kidney disease documented in this encounter Care Teams Deburrer Machine Relationship Specialty Start Date End Date Aditya Castro MD PCP - General Student in an Organized Health Care Education/Training Program 09/11/18 documented as of this encounter
--- OUTSIDE RECORDS SUMMARY | 2024-09-07 19:07 | XMS_ITS | Encounter Summary ---
Author Organization [facility] Address [address] [place] [address] Care Team Providers Care Clothing Patternmaker Name Role Phone Aditya Castro MD Primary Care Provider [phone] Encounter Details Date Type Department Care Team (Late st Contact Info) Description 02/20/2019 Orders Only [facility] Oncology and Hematology - [place] [address] [facility] [address] [place] [address] Fernando Schmid MD [address] [facility] [address] [place] [address] Anemia in stage 4 chronic [...] MD HEMATOLOGY ORDERABLES Final Res ult NON [facility] documented in this encounter Visit Diagnoses Diagnosis Anemia in stage 4 chronic kidney disease documented in this encounter Care Teams Clothing Patternmaker Relationship Specialty Start Date End Date Aditya Castro MD PCP - General Student in an Organized Health Care Education/Training Program 09/11/18 documented as of this encounter
--- OUTSIDE RECORDS SUMMARY | 2024-09-07 19:07 | XMS_ITS | Encounter Summary ---
Author Organization [facility] Address [address] [place] [address] Care Team Providers Care Energy Conservation Technician Name Role Phone Aditya Castro MD Primary Care Provider [phone] Encounter Details Date Type Department Care Team (Late st Contact Info) Description 10/23/2018 Orders Only [facility] Oncology and Hematology - [place] [address] [facility] 200 [place] [address] Fernando Schmid MD 2227 [facility] [address] [place] [address] Anemia of chronic renal failure, [...] IRON, TIBC, AND PERCENT SATURATION (10/23/2018) Blood us Fernando Schmid MD CHEMISTRY ORDERABLES Final Resu lt EXTERNAL LAB * FERRITIN (10/23/2018) Blood us Fernando Schmid MD CHEMISTRY ORDERABLES Final Resu lt Performing Organization Address [facility] Co de Phone Number EXTERNAL LAB documented in this encounter Visit Diagnoses Diagnosis Anemia of chronic renal failure, stage 4 (severe)- Primary documented in this encounter Care Teams Energy Conservation Technician Relationship Specialty Start Date End Date Aditya Castro MD PCP - General Student in an Organized Health Care Education/Training Program 09/11/18 documented as of this encounter
--- OUTSIDE RECORDS SUMMARY | 2024-09-07 19:07 | XMS_ITS | Encounter Summary ---
Author Organization [facility] Address [address] [place] [address] Care Team Providers Care Glaze Carrier Name Role Phone Jhonatan Bellamy MD Primary Care Provider [phone] Encounter Details Date Type Department Care Team (Late st Contact Info) Description 07/18/2018 Orders Only [facility] Oncology and Hematology - [place] [address] [email or web address] 200 [place] [address] Fernando Schmid MD 2227 [facility] [address] [place] [address] Social History Tobacco Use Types [...] Results * CBC WITH DIFFERENTIAL (07/17/2018) Blood us Fernando Schmid MD HEMATOLOGY ORDERABLES Final Res ult [facility] documented in this encounter Visit Diagnoses Not on filedocumented in this encounter Care Teams Glaze Carrier Relationship Specialty Start Date End Date Jhonatan Bellamy MD [address] [place] [id number] PCP - General Family Practice 06/05/17 09/10/18 documented as of this encounter
--- OUTSIDE RECORDS SUMMARY | 2024-09-07 19:07 | XMS_ITS | Encounter Summary ---
Author Organization [facility] Address [address] [place] [address] Care Team Providers Care Radio Intelligence Operator Name Role Phone Aditya Castro MD Primary Care Provider [phone] Reason for Visit * Reason Comments Medication Refill Encounter Details Date Type Department Care Team (Late st Contact Info) Description 09/08/2018 Refill [facility] Oncology and Hematology - [place] [address] [facility] [address] [place] [address] Fernando Schmid MD [address] [facility] [address] [place] [address] Social History Tobacco Use Types [...] filedocumented in this encounter Care Teams Radio Intelligence Operator Relationship Specialty Start Date End Date Aditya Castro MD PCP - General Student in an Organized Health Care Education/Training Program 09/11/18 documented as of this encounter
--- OUTSIDE RECORDS SUMMARY | 2024-09-07 19:07 | XMS_ITS | Encounter Summary ---
Author Organization [facility] Address [address] [place] [address] Care Team Providers Care Senior Manager Quality Assurance Name Role Phone Aditya Castro MD Primary Care Provider [phone] Encounter Details Date Type Department Care Team (Late st Contact Info) Description 03/07/2019 Orders Only [facility] Oncology and Hematology - [place] [address] [facility] 200 [place] [address] Fernando Schmid MD 2[address] [facility] [address] [place] [address] Anemia in stage 4 chronic [...] MD HEMATOLOGY ORDERABLES Final Res ult NON [facility] documented in this encounter Visit Diagnoses Diagnosis Anemia in stage 4 chronic kidney disease documented in this encounter Care Teams Senior Manager Quality Assurance Relationship Specialty Start Date End Date Aditya Castro MD PCP - General Student in an Organized Health Care Education/Training Program 09/11/18 documented as of this encounter
--- OUTSIDE RECORDS SUMMARY | 2024-09-07 19:07 | XMS_ITS | Encounter Summary ---
Author Organization [facility] Address [address] [place] [address] Care Team Providers Care Studio Operation Engineer Name Role Phone Jhonatan Bellamy MD Primary Care Provider [phone] Encounter Details Date Type Department Care Team (Late st Contact Info) Description 08/24/[address] [facility] Oncology and Hematology - [place] [address] [phone] Tanna Costa RN Anemia in stage 4 [...] Results * CBC WITH DIFFERENTIAL (09/25/2018) Blood us Fernando Schmid MD HEMATOLOGY ORDERABLES Final Res ult NON [facility] documented in this encounter Visit Diagnoses Diagnosis Anemia in stage 4 chronic kidney disease documented in this encounter Care Teams Studio Operation Engineer Relationship Specialty Start Date End Date Jhonatan Bellamy MD [address] [place] [address] PCP - General Family Practice 06/05/17 09/10/18 documented as of this encounter
--- OUTSIDE RECORDS SUMMARY | 2024-09-07 19:07 | XMS_ITS | Encounter Summary ---
Author Organization [facility] Address [address] [place] [address] Care Team Providers Care Burial Vault Deliverer And Installer Name Role Phone Aditya Castro MD Primary Care Provider [phone] Encounter Details Date Type Department Care Team (Late st Contact Info) Description 02/08/[address] [facility] Oncology and Hematology - [place] 2[address] [facility] 200 [place] [address] Fernando Schmid MD [address] [facility] [address] [place] [address] Anemia in stage 4 chronic [...] MD HEMATOLOGY ORDERABLES Final Res ult NON [facility] documented in this encounter Visit Diagnoses Diagnosis Anemia in stage 4 chronic kidney disease documented in this encounter Care Teams Burial Vault Deliverer And Installer Relationship Specialty Start Date End Date Aditya Castro MD PCP - General Student in an Organized Health Care Education/Training Program 09/11/18 documented as of this encounter
--- OUTSIDE RECORDS SUMMARY | 2024-09-07 19:07 | XMS_ITS | Encounter Summary ---
Author Organization [facility] Address [address] [place] [address] Care Team Providers Care Inventory Planner Name Role Phone Aditya Castro MD Primary Care Provider [phone] Reason for Visit * Reason Comments Follow Up * Eval and Treat (Routine) - Closed Specialty Diagnoses / Procedures Referred By Contjodi t Referred To Contact Oncology Diagnoses N18.4 Procedures Office Visit Level [id number] Aditya Castro MD Phone: tel: fax: Fernando Schmid MD [address] [place] [address] Phone: tel: fax: Referral ID Status Reason Start Date Expiration Date Visits Re quested Visits Authorized [id number] Closed 01/29/2019 04/29/2019 1 6 Encounter Details Date Type Department Care Team (Late st Contact Info) Description 01/29/2019 10:15 AM CDT Office Visit [facility] Oncology and Hematology - [place] [address] [facility] 200 [place] [address] Fernando Schmid MD [address] [place] [address] Anemia in stage 4 chronic [...] ORDERABLES Final Resu lt Performing Organization Address [facility] Co de Phone Number EXTERNAL LAB * (ABNORMAL) CBC WITH DIFFERENTIAL (05/01/2019) Blood Frenando Schmid MD HEMATOLOGY ORDERABLES Final Res ult Performing Organization Address [facility] Co de Phone Number EXTERNAL LAB documented in this encounter Visit Diagnoses Diagnosis Anemia in stage 4 chronic kidney disease- Primary documented in this encounter Care Teams Inventory Planner Relationship Specialty Start Date End Date Aditya Castro MD PCP - General Student in an Organized Health Care Education/Training Program 09/11/18 documented as of this encounter
--- OUTSIDE RECORDS SUMMARY | 2024-09-07 19:07 | XMS_ITS | Encounter Summary ---
Author Organization [facility] Address [address] [place] [address] Care Team Providers Care Crusher Setter Name Role Phone Jhonatan Bellamy MD Primary Care Provider [phone] Encounter Details Date Type Department Care Team (Late st Contact Info) Description 07/19/2018 Orders Only [facility] Oncology and Hematology - [place] [address] [address] Tanna Costa RN Social History [...] on filedocumented in this encounter Care Teams Crusher Setter Relationship Specialty Start Date End Date Jhonatan Bellamy MD [address] [place] [address] PCP - General Family Practice 06/05/17 09/10/18 documented as of this encounter
--- OUTSIDE RECORDS SUMMARY | 2024-09-07 19:07 | XMS_ITS | Encounter Summary ---
Author Organization [facility] Address [address] [place] [address] Care Team Providers Care Home Hospice Aide Name Role Phone Aditya Castro MD Primary Care Provider [phone] Encounter Details Date Type Department Care Team (Late st Contact Info) Description 12/05/2018 Orders Only [facility] Oncology and Hematology - [place] [address] [facility] 200 [place] [address] Fernando Schmid MD 2[address] [facility] [address] [place] [address] Anemia in stage 4 chronic [...] HEMATOLOGY ORDERABLES Final Res ult NON [facility] documented in this encounter Visit Diagnoses Diagnosis Anemia in stage 4 chronic kidney disease documented in this encounter Care Teams Home Hospice Aide Relationship Specialty Start Date End Date Aditya Castro MD PCP - General Student in an Organized Health Care Education/Training Program 09/11/18 documented as of this encounter
--- OUTSIDE RECORDS SUMMARY | 2024-09-07 19:07 | XMS_ITS | Encounter Summary ---
Author Organization [facility] Address [address] [place] [address] Care Team Providers Care Neonatal Nurse Name Role Phone Aditya Castro MD Primary Care Provider [phone] Encounter Details Date Type Department Care Team (Late st Contact Info) Description 04/05/2019 Orders Only [facility] Oncology and Hematology - [place] 2[address] [facility] 200 [place] [address] Fernando Schmid MD [address] [facility] [address] [place] [address] Anemia in stage 4 chronic [...] HEMATOLOGY ORDERABLES Final Res ult NON [facility] documented in this encounter Visit Diagnoses Diagnosis Anemia in stage 4 chronic kidney disease documented in this encounter Care Teams Neonatal Nurse Relationship Specialty Start Date End Date Aditya Castro MD PCP - General Student in an Organized Health Care Education/Training Program 09/11/18 documented as of this encounter
--- OUTSIDE RECORDS SUMMARY | 2024-09-07 19:07 | XMS_ITS | Encounter Summary ---
Author Organization [facility] Address [address] [place] [address] Care Team Providers Care Cane Flume Chute Operator Name Role Phone Jhonatan Bellamy MD Primary Care Provider [phone] Reason for Visit * Reason Comments Medication Refill Encounter Details Date Type Department Care Team (Late st Contact Info) Description 08/14/2018 Refill [facility] Oncology and Hematology - [place] 2[address] [facility] 200 [place] [address] Fernando Schmid MD [address] [facility] [address] [place] [address] Social History Tobacco Use Types [...] on filedocumented in this encounter Care Teams Cane Flume Chute Operator Relationship Specialty Start Date End Date Jhonatan Bellamy MD [address] [place] [address] PCP - General Family Practice 06/05/17 09/10/18 documented as of this encounter
--- OUTSIDE RECORDS SUMMARY | 2024-09-07 19:07 | XMS_ITS | Encounter Summary ---
Author Organization [facility] Address [address] [place] [address] Care Team Providers Care Senior Risk Analyst Name Role Phone Aditya Castro MD Primary Care Provider [phone] Encounter Details Date Type Department Care Team (Late st Contact Info) Description 01/23/2019 Orders Only [facility] Oncology and Hematology - [place] [address] [facility] 200 [place] [address] Fernando Schmid MD 2[address] [facility] [address] [place] [address] Anemia in stage 4 chronic [...] DIFFERENTIAL (01/25/2019) Blood Fernando Schmid MD HEMATOLOGY ORDERABLES Final Res ult NON [facility] documented in this encounter Visit Diagnoses Diagnosis Anemia in stage 4 chronic kidney disease documented in this encounter Care Teams Senior Risk Analyst Relationship Specialty Start Date End Date Aditya Castro MD PCP - General Student in an Organized Health Care Education/Training Program 09/11/18 documented as of this encounter
--- OUTSIDE RECORDS SUMMARY | 2024-09-07 19:07 | XMS_ITS | Encounter Summary ---
Author Organization [facility] Address [address] [place] [address] Care Team Providers Care Barrel Bridge Assembler Name Role Phone Aditya Castro MD Primary Care Provider [phone] Encounter Details Date Type Department Care Team (Late st Contact Info) Description 01/30/2019 Orders Only [facility] Oncology and Hematology - [place] 2227 [facility] 200 [place] [address] Fernando Schmid MD [address] [facility] [address] [place] [address] Anemia in stage 4 chronic [...] MD HEMATOLOGY ORDERABLES Final Res ult NON [facility] documented in this encounter Visit Diagnoses Diagnosis Anemia in stage 4 chronic kidney disease documented in this encounter Care Teams Barrel Bridge Assembler Relationship Specialty Start Date End Date Aditya Castro MD PCP - General Student in an Organized Health Care Education/Training Program 09/11/18 documented as of this encounter
--- OUTSIDE RECORDS SUMMARY | 2024-09-07 19:07 | XMS_ITS | Encounter Summary ---
Author Organization [facility] Address [address] [place] [address] Care Team Providers Care Mercury Cracking Tester Name Role Phone Aditya Castro MD Primary Care Provider [phone] Reason for Visit * Reason Comments Follow Up Results * Eval and Treat (Routine) - Closed Specialty Diagnoses / Procedures Referred By Aguilar t Referred To Contact Diagnoses N18.4, D63.1 Procedures Office Visit Jhonatan Bellamy MD [address] [place] [address] Phone: tel: fax: Fernando Schmid MD [address] [employer] [address] [place] [address] Phone: tel: fax: Referral ID Status Reason Start Date Expiration Date Visits Re quested Visits Authorized [id number] Closed 06/15/2018 09/13/2018 1 6 Encounter Details Date Type Department Care Team (Late st Contact Info) Description 09/11/2018 9:45 AM TRIMMING CUTTER MACHINE Office Visit [facility] Oncology and Hematology - [place] [address] [facility] 200 [place] [address] Fernando Schmid MD [address] [employer] [address] [place] [address] Anemia in stage 4 chronic kidney [...] Comments Blood Pressure 149/78 09/11/2018 9:47 AM TRIMMING CUTTER MACHINE Pulse 64 09/11/2018 9:47 AM TRIMMING CUTTER MACHINE Temperature 36.8 ??C (98.2 ??F) 09/11/2018 9:47 AM CS T Respiratory Rate - - Oxygen Saturation 96% 09/11/2018 9:47 AM TRIMMING CUTTER MACHINE Inhaled Oxygen Concentration - - Weight 122.3 kg (269 lb 9.6 oz) 09/11/2018 9:47 AM TRIMMING CUTTER MACHINE Height 177.8 cm (5' 10 ) 09/11/2018 9:47 AM TRIMMING CUTTER MACHINE Body Mass Index 38.68 09/11/2018 9:47 AM TRIMMING CUTTER MACHINE documented in this encounter Progress Notes * [...] is on Plavix. 09/11/2018 Fernando Schmid MD MING CUTTER MACHINE documented in this encounter Plan of Treatment Not on file documented as of this encounter Results * (ABNORMAL) CBC WITH DIFFERENTIAL (10/23/2018) Blood us Fernando Schmid MD HEMATOLOGY ORDERABLES Final Res ult EXTERNAL LAB documented in this encounter Visit Diagnoses Diagnosis Anemia in stage 4 chronic kidney disease- Primary documented in this encounter Care Teams Mercury Cracking Tester Relationship Specialty Start Date End Date Aditya Castro MD PCP - General Student in an Organized Health Care Education/Training Program 09/11/18 documented as of this encounter
--- OUTSIDE RECORDS SUMMARY | 2024-09-07 19:08 | XMS_ITS | Encounter Summary ---
Author Organization [facility] Address [address] [place] [address] Care Team Providers Care Historical Society Director Name Role Phone Jhonatan Bellamy MD Primary Care Provider [phone] Encounter Details Date Type Department Care Team (Late st Contact Info) Description 06/04/2018 Orders Only [facility] Oncology and Hematology - [place] [address] [phone] Tanna Costa RN Anemia of chronic renal [...] Results * CBC WITH DIFFERENTIAL (06/04/2018) Blood us Fernando Schmid MD HEMATOLOGY ORDERABLES Final Res ult EXTERNAL LAB documented in this encounter Visit Diagnoses Diagnosis Anemia of chronic renal failure, stage 4 (severe) documented in this encounter Care Teams Historical Society Director Relationship Specialty Start Date End Date Jhonatan Bellamy MD [address] [place] [id number] PCP - General Family Practice 06/05/17 09/10/18 documented as of this encounter
--- OUTSIDE RECORDS SUMMARY | 2024-09-07 19:08 | XMS_ITS | Encounter Summary ---
Author Organization [facility] Address [address] [place] [address] Care Team Providers Care Export Clerk Name Role Phone Jhonatan Bellamy MD Primary Care Provider [phone] Reason for Visit * Reason Comments Follow Up Encounter Details Date Type Department Care Team (Late st Contact Info) Description 04/16/2018 1:00 PM CDT Office Visit [facility] Oncology and Hematology - [place] [address] [facility] 200 [place] [address] Fernando Schmid MD [address] [facility] [address] [place] [address] Anemia of chronic renal failure, [...] Results * CBC WITHOUT DIFFERENTIAL (06/15/2018) Blood us Fernando Schmid MD HEMATOLOGY ORDERABLES Final Res ult EXTERNAL LAB documented in this encounter Visit Diagnoses Diagnosis Anemia of chronic renal failure, stage 4 (severe)- Primary documented in this encounter Care Teams Export Clerk Relationship Specialty Start Date End Date Jhonatan Bellamy MD [address] [place] [address] PCP - General Family Practice 06/05/17 09/10/18 documented as of this encounter
--- OUTSIDE RECORDS SUMMARY | 2024-09-07 19:08 | XMS_ITS | Encounter Summary ---
Author Organization [facility] Address [address] [place] [address] Care Team Providers Care Staff Physical Therapy Assistant Name Role Phone Jhonatan Bellamy MD Primary Care Provider [phone] Reason for Visit * Reason Comments Medication Refill Encounter Details Date Type Department Care Team (Late st Contact Info) Description 07/16/2018 Refill [facility] Oncology and Hematology - [place] [address] [facility] 200 [place] [address] Fernando Schmid MD [address] [facility] [address] [place] [address] Social History Tobacco Use Types [...] on filedocumented in this encounter Care Teams Staff Physical Therapy Assistant Relationship Specialty Start Date End Date Jhonatan Bellamy MD [address] [place] [address] PCP - General Family Practice 06/05/17 09/10/18 documented as of this encounter
--- OUTSIDE RECORDS SUMMARY | 2024-09-07 19:08 | XMS_ITS | Encounter Summary ---
Author Organization [facility] Address [address] [place] [address] Care Team Providers Care Cogeneration Operator Name Role Phone Jhonatan Bellamy MD Primary Care Provider [phone] Encounter Details Date Type Department Care Team (Late st Contact Info) Description 04/16/2018 Orders Only [facility] Oncology and Hematology - [place] [address] [phone] Tanna Costa, RN Anemia of chronic renal [...] Results * CBC WITH DIFFERENTIAL (04/16/2018) Blood us Fernando Schmid MD HEMATOLOGY ORDERABLES Final Res ult EXTERNAL LAB * BASIC METABOLIC PANEL (04/16/2018) Blood us Fernando Schmid MD CHEMISTRY ORDERABLES Final Resu lt EXTERNAL LAB documented in this encounter Visit Diagnoses Diagnosis Anemia of chronic renal failure, stage 4 (severe) documented in this encounter Care Teams Cogeneration Operator Relationship Specialty Start Date End Date Jhonatan Bellamy MD [address] [place] [address] PCP - General Family Practice 06/05/17 09/10/18 documented as of this encounter
--- OUTSIDE RECORDS SUMMARY | 2024-09-07 19:08 | XMS_ITS | Encounter Summary ---
Author Organization [facility] Address [address] [place] [address] Care Team Providers Care Art Model Name Role Phone Jhonatan Bellamy MD Primary Care Provider [phone] Encounter Details Date Type Department Care Team (Late st Contact Info) Description 02/28/2018 Orders Only [facility] Oncology and Hematology - [place] [address] [address] Tanna Costa, RN Anemia of chronic renal [...] (02/28/2018) Blood Fernando Schmid MD CHEMISTRY ORDERABLES Final Resu lt Performing Organization Address [facility] Co de Phone Number NON [facility] * IRON, TIBC, AND PERCENT SATURATION (02/28/2018) Blood Fernando Schmid MD CHEMISTRY ORDERABLES Final Resu lt Performing Organization Address [facility] Co de Phone Number EXTERNAL LAB * (ABNORMAL) CBC WITH DIFFERENTIAL (02/28/2018) Blood Fernando Schmid MD HEMATOLOGY ORDERABLES Final Res ult Performing Organization Address [facility] de Phone Number EXTERNAL LAB documented in this encounter Visit Diagnoses Diagnosis Anemia of chronic renal failure, stage 4 (severe) History of anemia due to chronic kidney disease documented in this encounter Care Teams Art Model Relationship Specialty Start Date End Date Jhonatan Bellamy MD [address] [place] [address] PCP - General Family Practice 06/05/17 09/10/18 documented as of this encounter
--- OUTSIDE RECORDS SUMMARY | 2024-09-07 19:08 | XMS_ITS | Encounter Summary ---
Author Organization [facility] Address [address] [place] [address] Care Team Providers Care Forensic Technician Name Role Phone Jhonatan Bellamy MD Primary Care Provider [phone] Encounter Details Date Type Department Care Team (Late st Contact Info) Description 04/04/2018 Orders Only [facility] Oncology and Hematology - [place] [address] [facility] 200 [place] [address] Fernando Schmid MD [address] [facility] [address] [place] [address] Anemia of chronic renal failure, [...] vein documented in this encounter Care Teams Forensic Technician Relationship Specialty Start Date End Date Jhonatan Bellamy MD [address] [place] [address] PCP - General Family Practice 06/05/17 09/10/18 documented as of this encounter
--- OUTSIDE RECORDS SUMMARY | 2024-09-07 19:08 | XMS_ITS | Encounter Summary ---
Author Organization [facility] Address [address] [place] [address] Care Team Providers Care Machine Cell Tuber Name Role Phone Jhonatan Bellamy MD Primary Care Provider [phone] Reason for Referral * Outpatient Services (Routine) - Closed Specialty Diagnoses / Procedures Referred By Aguilar lora Referred To Contact Diagnoses Anemia of chronic renal failure, stage 4 (severe) Chronic deep vein thrombosis (DVT) of right lower extremity, unspecified vein Procedures US VENOUS DOPPLER LEG RIGHT Fernando Schmid MD [address] [employer] [address] [place] [address] Phone: tel: fax: [place] [address] [place] [address] Phone: tel: fax: Referral ID Status Reason Start Date Expiration Date Visits Requested Visits Authorized [id number] Closed Ordering Department To Schedule 02/28/2018 03/31/2019 1 1 Reason for Visit * Reason Comments Follow Up Labs Encounter Details Date Type Department Care Team (Late st Contact Info) Description 02/28/2018 1:30 PM CDT Office Visit [facility] Oncology and Hematology - [place] [address] [facility] 200 [place] [address] Fernando Schmid MD [address] [employer] [address] [place] [address] Anemia of chronic renal failure, stage [...] DIFFERENTIAL (04/16/2018) Blood Fernando Schmid MD HEMATOLOGY ORDERABLES Final Res ult Performing Organization Address [place] de Phone Number EXTERNAL LAB * BASIC METABOLIC PANEL (04/16/2018) Blood Fernando Schmid MD CHEMISTRY ORDERABLES Final Resu lt Performing Organization Address [place] Co de Phone Number EXTERNAL LAB * US VENOUS DOPPLER LEG RIGHT (04/04/2018) Anatomical Region Laterality Modality Lower Extremity Other Fernando Schmid MD US ORDERABLES Final Result documented in this encounter Visit Diagnoses Diagnosis Anemia of chronic renal failure, stage 4 (severe)- Primary Chronic deep vein thrombosis (DVT) of right lower extremity, unspecified vein documented in this encounter Care Teams Machine Cell Tuber Relationship Specialty Start Date End Date Jhonatan Bellamy MD [address] [place] [address] PCP - General Family Practice 06/05/17 09/10/18 documented as of this encounter
--- OUTSIDE RECORDS SUMMARY | 2024-09-07 19:08 | XMS_ITS | Encounter Summary ---
Author Organization [facility] Address [address] [place] [address] Care Team Providers Care Dermatopathologist Name Role Phone Jhonatan Bellamy MD Primary Care Provider [phone] Reason for Referral * Radiology Services (Routine) - Closed Specialty Diagnoses / Procedures Referred By Aguilar t Referred To Contact Diagnoses Chronic deep vein thrombosis (DVT) of right lower extremity, unspecified vein Procedures US VENOUS DOPPLER LEG RIGHT Fernando Schmid MD [address] [employer] [address] [address] Phone: tel: fax: [address] [address] Referral ID Status Reason Start Date Expiration Date Visits Requested Visits Authorized [id number] Closed Ordering Department To Schedule 06/15/2018 07/16/2019 1 1 Reason for Visit * Reason Comments Follow Up Results * Eval and Treat (Routine) - Closed Specialty Diagnoses / Procedures Referred By Contac t Referred To Contact Diagnoses N18.4, D63.1 Procedures Office Visit Jhonatan Bellamy MD [address] [place] [address] Phone: tel: fax: Fernando Schmid MD [address] [employer] [address] [place] [address] Phone: tel: fax: Referral ID Status Reason Start Date Expiration Date Visits Re quested Visits Authorized [id number] Closed 06/15/2018 09/13/2018 1 6 Encounter Details Date Type Department Care Team (Late st Contact Info) Description 06/15/2018 9:00 AM CDT Office Visit [facility] Oncology and Hematology - [place] [address] [facility] 200 [place] [address] Fernando Schmid MD [address] [facility] [address] [place] [address] Chronic deep vein thrombosis (DVT) [...] Primary documented in this encounter Care Teams Dermatopathologist Relationship Specialty Start Date End Date Jhonatan Bellamy MD [address] [place] [address] PCP - General Family Practice 06/05/17 09/10/18 documented as of this encounter
--- OUTSIDE RECORDS SUMMARY | 2024-09-07 19:08 | XMS_ITS | Encounter Summary ---
Author Organization [facility] Address [address] [place] [address] Care Team Providers Care Technical Trainer Name Role Phone Jhonatan Bellamy MD Primary Care Provider [phone] Encounter Details Date Type Department Care Team (Late st Contact Info) Description 06/20/2018 Orders Only [facility] Oncology and Hematology - [place] [address] [facility] 200 [place] [address] Fernando Schmid MD [address] [facility] [address] [place] [address] Social History Tobacco Use Types [...] Results * HIV 1 ANTIBODY (06/18/2018) Blood us Fernando Schmid MD CHEMISTRY ORDERABLES Final Resu lt [facility] documented in this encounter Visit Diagnoses Not on filedocumented in this encounter Care Teams Technical Trainer Relationship Specialty Start Date End Date Jhonatan Bellamy MD [address] [place] [phone] PCP - General Family Practice 06/05/17 09/10/18 documented as of this encounter
--- OUTSIDE RECORDS SUMMARY | 2024-09-07 19:08 | XMS_ITS | Encounter Summary ---
Author Organization [facility] Address [address] [place] [address] Care Team Providers Care Plywood Stock Grader Name Role Phone Jhonatan Bellamy MD Primary Care Provider [phone] Reason for Visit * Reason Comments Medication Refill Encounter Details Date Type Department Care Team (Late st Contact Info) Description 05/23/2018 Refill [facility] Oncology and Hematology - [place] [address] [facility] 200 [place] [address] Fernando Schmid MD [address] [facility] [address] [place] [address] Social History Tobacco Use Types [...] on filedocumented in this encounter Care Teams Plywood Stock Grader Relationship Specialty Start Date End Date Jhonatan Bellamy MD [address] [place] [address] PCP - General Family Practice 06/05/17 09/10/18 documented as of this encounter
--- OUTSIDE RECORDS SUMMARY | 2024-09-07 19:08 | XMS_ITS | Encounter Summary ---
Author Organization [facility] Address [address] [place] [address] Care Team Providers Care Workers Compensation Claims Analyst Name Role Phone Jhonatan Bellamy MD Primary Care Provider [phone] Encounter Details Date Type Department Care Team (Late st Contact Info) Description 06/15/2018 Orders Only [facility] Oncology and Hematology - [place] [address] [phone] Tanna Costa RN Anemia of chronic renal [...] in this encounter Care Teams Workers Compensation Claims Analyst Relationship Specialty Start Date End Date Jhonatan Bellamy MD [address] [place] [address] PCP - General Family Practice 06/05/17 09/10/18 documented as of this encounter
--- OUTSIDE RECORDS SUMMARY | 2024-09-07 19:08 | XMS_ITS | Encounter Summary ---
Author Organization [facility] Address [address] [place] [address] Care Team Providers Care Death Claim Clerk Name Role Phone Jhonatan Bellamy MD Primary Care Provider [phone] Encounter Details Date Type Department Care Team (Late st Contact Info) Description 02/20/2018 Orders Only [facility] Oncology and Hematology - [place] [address] [address] Tanna Costa, RN Anemia of [...] (severe) documented in this encounter Care Teams Death Claim Clerk Relationship Specialty Start Date End Date Jhonatan Bellamy MD [address] [place] [address] PCP - General Family Practice 06/05/17 09/10/18 documented as of this encounter
--- OUTSIDE RECORDS SUMMARY | 2024-09-07 19:08 | XMS_ITS | Encounter Summary ---
Author Organization [facility] Address [address] [place] [address] Care Team Providers Care Aircraft Tool Maker Name Role Phone Jhonatan Bellamy MD Primary Care Provider [phone] Encounter Details Date Type Department Care Team (Late st Contact Info) Description 03/28/2018 Orders Only [facility] Oncology and Hematology - [place] [address] [phone] Tanna Costa RN Anemia of chronic renal [...] Results * CBC WITH DIFFERENTIAL (04/02/2018) Blood us Fernando Schmid MD HEMATOLOGY ORDERABLES Final Res ult EXTERNAL LAB documented in this encounter Visit Diagnoses Diagnosis Anemia of chronic renal failure, stage 4 (severe) documented in this encounter Care Teams Aircraft Tool Maker Relationship Specialty Start Date End Date Jhonatan Bellamy MD [address] [place] [address] PCP - General Family Practice 06/05/17 09/10/18 documented as of this encounter
--- OUTSIDE RECORDS SUMMARY | 2024-09-07 19:08 | XMS_ITS | Encounter Summary ---
Author Organization [facility] Address [address] [place] [address] Care Team Providers Care Supervisor Mold Cleaning And Storage Name Role Phone Jhonatan Bellamy MD Primary Care Provider Encounter Details Date Type Department Care Team (Late st Contact Info) Description 02/26/2018 Orders Only [facility] Oncology and Hematology - [place] [address] [address] Tanna Costa, RN Social History Tobacco Use Types Packs/Day [...] filedocumented in this encounter Care Teams Supervisor [employer]aning [employer] Storage Relationship Specialty Start Date End Date Jhonatan Bellamy MD [address] [place] [address] PCP - General Family Practice 06/05/17 09/10/18 documented as of this encounter
--- OUTSIDE RECORDS SUMMARY | 2024-09-07 19:08 | XMS_ITS | Encounter Summary ---
Author Organization [facility] Address [address] [place] [address] Care Team Providers Care Clay Temperer Name Role Phone Jhonatan Bellamy MD Primary Care Provider [phone] Reason for Visit * Reason Comments Medication Refill Encounter Details Date Type Department Care Team (Late st Contact Info) Description 06/22/2018 Refill [facility] Oncology and Hematology - [place] [address] [facility] 200 [place] [address] Fernando Schmid MD [address] [facility] [address] [place] [address] Social History Tobacco Use Types [...] on filedocumented in this encounter Care Teams Clay Temperer Relationship Specialty Start Date End Date Jhonatan Bellamy MD [address] [place] [address] PCP - General Family Practice 06/05/17 09/10/18 documented as of this encounter
--- OUTSIDE RECORDS SUMMARY | 2024-09-07 19:08 | XMS_ITS | Encounter Summary ---
Author Organization [facility] Address [address] [place] [address] Care Team Providers Care E Learning Designer Name Role Phone Jhonatan Bellamy MD Primary Care Provider [phone] Encounter Details Date Type Department Care Team (Late st Contact Info) Description 04/30/2018 Orders Only [facility] Oncology and Hematology - [place] [address] [phone] Tanna Costa, RN Anemia of chronic renal [...] * (ABNORMAL) CBC WITH DIFFERENTIAL (04/30/2018) Blood us Fernando Schmid MD HEMATOLOGY ORDERABLES Final Res ult EXTERNAL LAB documented in this encounter Visit Diagnoses Diagnosis Anemia of chronic renal failure, stage 4 (severe) documented in this encounter Care Teams E Learning Designer Relationship Specialty Start Date End Date Jhonatan Bellamy MD [address] [place] [address] PCP - General Family Practice 06/05/17 09/10/18 documented as of this encounter
--- OUTSIDE RECORDS SUMMARY | 2024-09-07 19:08 | XMS_ITS | Encounter Summary ---
Author Organization [facility] Address [address] [place] [address] Care Team Providers Care Demonstrator Sewing Techniques Name Role Phone Jhonatan Bellamy MD Primary Care Provider [phone] Encounter Details Date Type Department Care Team (Late st Contact Info) Description 05/14/2018 Orders Only [facility] Oncology and Hematology - [place] [address] [phone] Tanna Costa, RN Anemia of chronic renal [...] Results * CBC WITH DIFFERENTIAL (05/24/2018) Blood us Fernando Schmid MD HEMATOLOGY ORDERABLES Final Res ult EXTERNAL LAB documented in this encounter Visit Diagnoses Diagnosis Anemia of chronic renal failure, stage 4 (severe) documented in this encounter Care Teams Demonstrator Sewing Techniques Relationship Specialty Start Date End Date Jhonatan Bellamy MD [address] [place] [address] PCP - General Family Practice 06/05/17 09/10/18 documented as of this encounter
--- OUTSIDE RECORDS SUMMARY | 2024-09-07 19:09 | XMS_ITS | Encounter Summary ---
Author Organization [facility] Address [address] [place] [address] Care Team Providers Care Wool Hat Flanger Name Role Phone Jhonatan Bellamy MD Primary Care Provider [phone] Encounter Details Date Type Department Care Team (Late st Contact Info) Description 01/22/[address] [facility] Oncology and Hematology - [place] [address] [address] Tanna Costa, RN Social History [...] filedocumented in this encounter Care Teams Wool Hat Flanger Relationship Specialty Start Date End Date Jhonatan Bellamy MD [address] [place] [address] PCP - General Family Practice 06/05/17 09/10/18 documented as of this encounter
--- OUTSIDE RECORDS SUMMARY | 2024-09-07 19:09 | XMS_ITS | Encounter Summary ---
Author Organization [facility] Address [address] [place] [address] Care Team Providers Care Home Health Manager Name Role Phone Jhonatan Bellamy MD Primary Care Provider [phone] Reason for Visit * Reason Onset Date Comments Medication Problem 01/22/2018 Encounter Details Date Type Department Care Team (Late st Contact Info) Description 01/22/2018 Telephone [facility] Oncology and Hematology - [place] [address] [facility] 200 [place] [address] Fernando Schmid MD [address] [facility] [address] [place] [address] Medication Problem Social History Tobacco [...] secondary insurance. I called Medicaid , [place] [phone], pt no longers had MEDCO and pt will have meridian as of 02/18/18. Tanna Costa, RN documented in this encounter Plan of Treatment Not on file documented as of this encounter Visit Diagnoses Not on filedocumented in this encounter Care Teams Home Health Manager Relationship Specialty Start Date End Date Jhonatan Bellamy MD [address] [place] [address] PCP - General Family Practice 06/05/17 09/10/18 documented as of this encounter
--- OUTSIDE RECORDS SUMMARY | 2024-09-07 19:09 | XMS_ITS | Encounter Summary ---
Author Organization [facility] Address [address] [place] [address] Care Team Providers Care Chemistry Quality Control Technician Name Role Phone Jhonatan Bellamy MD Primary Care Provider [phone] Reason for Visit * Reason Onset Date Comments Medication Review 01/26/2018 low iron-pt to start Ferrous Sulfate 325 mg po bid per Dr. Schmid Encounter Details Date Type Department Care Team (Late st Contact Info) Description 01/26/[address] [facility] [place] [address] [facility] 200 [place] [address] [place] [address] [place] [address] [address] [place] [address] Medication Review (low iron-pt to [...] per Dr. Schmid, pt states understanding. Tanna Costa, RN documented in this encounter Plan of Treatment Not on file documented as of this encounter Visit Diagnoses Not on filedocumented in this encounter Care Teams Chemistry Quality Control Technician Relationship Specialty Start Date End Date Jhonatan Bellamy MD [address] [place] [phone] PCP - General Family Practice 06/05/17 09/10/18 documented as of this encounter
--- OUTSIDE RECORDS SUMMARY | 2024-09-07 19:09 | XMS_ITS | Encounter Summary ---
Author Organization [facility] Address [address] [place] [address] Care Team Providers Care Operating Room Registered Nurse Name Role Phone Jhonatan Bellamy MD Primary Care Provider [phone] Encounter Details Date Type Department Care Team (Late st Contact Info) Description 01/22/2018 Orders Only [facility] Oncology and Hematology - [place] [address] [address] Tanna Costa, RN Social History [...] on filedocumented in this encounter Care Teams Operating Room Registered Nurse Relationship Specialty Start Date End Date Jhonatan Bellamy MD [address] [place] [address] PCP - General Family Practice 06/05/17 09/10/18 documented as of this encounter
--- OUTSIDE RECORDS SUMMARY | 2024-09-07 19:09 | XMS_ITS | Encounter Summary ---
Author Organization [facility] Address [address] [place] [address] Care Team Providers Care Elementary Art Teacher Name Role Phone Jhonatan Bellamy MD Primary Care Provider [phone] Encounter Details Date Type Department Care Team (Late st Contact Info) Description 01/23/[address] [facility] Oncology and Hematology - [place] [address] [address] Tanna Costa, RN Social History [...] on filedocumented in this encounter Care Teams Elementary Art Teacher Relationship Specialty Start Date End Date Jhonatan Bellamy MD [address] [place] [address] PCP - General Family Practice 06/05/17 09/10/18 documented as of this encounter
--- OUTSIDE RECORDS SUMMARY | 2024-09-07 19:09 | XMS_ITS | Encounter Summary ---
Author Organization [facility] Address [address] [place] [address] Care Team Providers Care Multimedia Producer Name Role Phone Jhonatan Bellamy MD Primary Care Provider [phone] Encounter Details Date Type Department Care Team (Late st Contact Info) Description 01/18/2018 Orders Only [facility] Oncology and Hematology - [place] [address] [phone] Tanna Costa, RN Anemia of chronic renal [...] Results * CBC WITH DIFFERENTIAL (01/18/2018) Blood us Fernando Schmid MD HEMATOLOGY ORDERABLES Final Res ult EXTERNAL LAB documented in this encounter Visit Diagnoses Diagnosis Anemia of chronic renal failure, stage 4 (severe) documented in this encounter Care Teams Multimedia Producer Relationship Specialty Start Date End Date Jhonatan Bellamy MD [address] [place] [address] PCP - General Family Practice 06/05/17 09/10/18 documented as of this encounter
--- OUTSIDE RECORDS SUMMARY | 2024-09-07 19:09 | XMS_ITS | Encounter Summary ---
Author Organization [facility] Address [address] [place] [address] Care Team Providers Care On Air Personality Name Role Phone Jhonatan Bellamy MD Primary Care Provider [phone] Encounter Details Date Type Department Care Team (Late st Contact Info) Description 02/06/2018 Orders Only [facility] Oncology and Hematology - [place] [address] [phone] Tanna Costa, RN Anemia of chronic renal [...] * (ABNORMAL) CBC WITH DIFFERENTIAL (02/06/2018) Blood us Fernando Schmid MD HEMATOLOGY ORDERABLES Final Res ult EXTERNAL LAB documented in this encounter Visit Diagnoses Diagnosis Anemia of chronic renal failure, stage 4 (severe) documented in this encounter Care Teams On Air Personality Relationship Specialty Start Date End Date Jhonatan Bellamy MD [address] [place] [address] PCP - General Family Practice 06/05/17 09/10/18 documented as of this encounter
--- OUTSIDE RECORDS SUMMARY | 2024-09-07 19:10 | XMS_ITS | Encounter Summary ---
Author Organization [facility] Address [address] [place] [address] Care Team Providers Care Esthetician/Skin Therapist Name Role Phone Jhonatan Bellamy MD Primary Care Provider [phone] Encounter Details Date Type Department Care Team (Late st Contact Info) Description 01/12/2018 Orders Only [facility] Oncology and Hematology - [place] [address] [facility] 200 [place] [address] Fernando Schmid MD [address] [facility] [address] [place] [address] Acute deep vein thrombosis (DVT) [...] extremity documented in this encounter Care Teams Esthetician/Skin Therapist Relationship Specialty Start Date End Date Jhonatan Bellamy MD [address] [place] [address] PCP - General Family Practice 06/05/17 09/10/18 documented as of this encounter
--- OUTSIDE RECORDS SUMMARY | 2024-09-07 19:10 | XMS_ITS | Encounter Summary ---
Author Organization [facility] Address [address] [place] [address] Care Team Providers Care Casing Crew Name Role Phone Jhonatan Bellamy MD Primary Care Provider [phone] Reason for Visit * Reason Comments Follow Up * Eval and Treat (Routine) - Closed Specialty Diagnoses / Procedures Referred By Contact Referred To Contact Hematology and Oncology / Oncology Diagnoses Anemia DVT (deep venous thrombosis) NEW CONSULT LOW BLOOD CT, BLOOD CLOT RT. KNEE Procedures OFFICE VISIT NEW PATIENT Finn Bellamy MD [address] [place] [address] Phone: tel: fax: Fernando Schmid MD [id number] [place] [address] Phone: tel: fax: Referral ID Status Reason Start Date Expiration Date Visits Re quested Visits Authorized [id number] Closed 06/05/2017 07/06/2018 100 100 Encounter Details Date Type Department Care Team (Late st Contact Info) Description 06/05/2017 10:30 AM CDT Office Visit [facility] Oncology and Hematology - [place] [address] [facility] [address] [place] [address] Fernando Schmid MD [id number] [place] [address] Anemia of chronic renal failure, [...] He was discharged from the hospital on Glory 26. Interval History: Patient had labs done on [...] this with his primary care physician and consumer safety officer. ? 06/05/2017 Fernando Schmid MD documented in this encounter Plan of Treatment Not on file documented as of this encounter Results * BASIC METABOLIC PANEL (07/11/2017) Blood Fernnado Schmid MD CHEMISTRY ORDERABLES Final Resu lt Performing Organization Address City/[facility]/ZIP Co de Phone Number EXTERNAL LAB * (ABNORMAL) CBC WITH DIFFERENTIAL (07/10/2017) Blood Fernando Schmid MD HEMATOLOGY ORDERABLES Final Res ult EXTERNAL LAB documented in this encounter Visit Diagnoses Diagnosis Anemia of chronic renal failure, stage 4 (severe) documented in this encounter Care Teams Casing Crew Relationship Specialty Start Date End Date Jhonatan Bellamy MD [address] [place] [phone] PCP - General Family Practice 06/05/17 09/10/18 documented as of this encounter
--- OUTSIDE RECORDS SUMMARY | 2024-09-07 19:10 | XMS_ITS | Continuity of Care Document ---
Author Organization [facility] Address [address] [place] [address] [place] [address] Phone Care Team Providers Care Vinyl Cutter Name Role Phone Carlos Garcia Unavailable Unavailable Advance Directives Directive Yes / No Effective Date File Name No Information Encounters Encounter Description Practice Location Reason(s) For Visit Diagnoses Date Provider Providers Copied on Encounter [facility], [address], [place], [place], [id number], [place] tel:[phone] [facility] No Information Radha Gonzalez. [address] [place], [place], Formerly named [facility], [place]. tel:[phone] Referring Provider: Yannick Remy, [facility], [place], [place], Formerly named [facility]. tel:[phone] Family History Family Member Type Diagnosis Age At Onset No Information Payers Payer name Insurance type Covered alliance party ID Authoriza tion(s) Medicaid [facility] [id number] Social History Type Description Quantity Date Captured [...]
--- OUTSIDE RECORDS SUMMARY | 2024-09-07 19:10 | XMS_ITS | Encounter Summary ---
Author Organization [facility] Address [address] [place] [address] Care Team Providers Care Digital Publishing Specialist Name Role Phone Jhonatan Bellamy MD Primary Care Provider [phone] Encounter Details Date Type Department Care Team (Late st Contact Info) Description 09/04/2017 Orders Only [facility] Oncology and Hematology - [place] [address] [phone] Tanna Costa, RN History of anemia due [...] (severe) documented in this encounter Care Teams Digital Publishing Specialist Relationship Specialty Start Date End Date Jhonatan Bellamy MD [address] [place] [phone] PCP - General Family Practice 06/05/17 09/10/18 documented as of this encounter
--- OUTSIDE RECORDS SUMMARY | 2024-09-07 19:10 | XMS_ITS | Encounter Summary ---
Author Organization [facility] Address [address] [place] [address] Care Team Providers Care Land Development Project Manager Name Role Phone Jhonatan Bellamy MD Primary Care Provider [phone] Reason for Visit * Reason Onset Date Comments Medication Review 07/03/2017 Encounter Details Date Type Department Care Team (Late st Contact Info) Description 07/03/2017 Telephone [facility] Oncology and Hematology - [place] [address] [facility] [address] [place] [address] Fernando Schmid MD [address] [facility] [address] [place] [address] Medication Review Social History Tobacco [...] scheduled ov next week. Tanna Costa RN [employer] documented in this encounter Plan of Treatment Not on file documented as of this encounter Visit Diagnoses Not on filedocumented in this encounter Care Teams Land Development Project Manager Relationship Specialty Start Date End Date Jhonatan Bellamy MD [address] [place] [phone] PCP - General Family Practice 06/05/17 09/10/18 documented as of this encounter
--- OUTSIDE RECORDS SUMMARY | 2024-09-07 19:10 | XMS_ITS | Encounter Summary ---
Author Organization [facility] Address [address] [place] [address] Care Team Providers Care Oven Baker Name Role Phone Jhonatan Bellamy MD Primary Care Provider [phone] Encounter Details Date Type Department Care Team (Late st Contact Info) Description 08/25/2017 Orders Only [facility] Oncology and Hematology - [place] [address] [facility] [address] [place] [address] Fernando Schmid MD [address] [facility] [address] [place] [address] History of anemia due to [...] * (ABNORMAL) CBC WITH DIFFERENTIAL (08/25/2017) Blood us Fernando Schmid MD HEMATOLOGY ORDERABLES Final Res ult EXTERNAL LAB documented in this encounter Visit Diagnoses Diagnosis History of anemia due to chronic kidney disease documented in this encounter Care Teams Oven Baker Relationship Specialty Start Date End Date Jhonatan Bellamy MD [address] [place] [address] PCP - General Family Practice 06/05/17 09/10/18 documented as of this encounter
--- OUTSIDE RECORDS SUMMARY | 2024-09-07 19:10 | XMS_ITS | Encounter Summary ---
Author Organization [facility] Address [address] [place] [address] Care Team Providers Care Change Management Specialist Name Role Phone Jhonatan Bellamy MD Primary Care Provider [phone] Encounter Details Date Type Department Care Team (Late st Contact Info) Description 07/10/2017 Orders Only [facility] Oncology and Hematology - [place] [address] [facility] [address] [place] [address] Fernando Schmid MD [address] [facility] [address] [place] [address] Anemia of chronic renal failure, [...] Primary documented in this encounter Care Teams Change Management Specialist Relationship Specialty Start Date End Date Jhonatan Bellamy MD [address] [place] [address] PCP - General Family Practice 06/05/17 09/10/18 documented as of this encounter
--- OUTSIDE RECORDS SUMMARY | 2024-09-07 19:10 | XMS_ITS | Encounter Summary ---
Author Organization [facility] Address [address] [place] [address] Care Team Providers Care Pierogi Maker Name Role Phone Jhonatan Bellamy MD Primary Care Provider [phone] Reason for Visit * Reason Comments Follow Up Encounter Details Date Type Department Care Team (Late st Contact Info) Description 01/18/2018 10:15 AM CDT Office Visit [facility] Oncology and Hematology - [place] [address] [facility] [address] [place] [address] Fernando Schmid MD [address] [facility] [address] [place] [address] Acute deep vein thrombosis (DVT) [...] ORDERABLES Final Resu lt Performing Organization Address [facility] Co de Phone Number [facility] * IRON, TIBC, AND PERCENT SATURATION (02/28/2018) Blood Fernando Schmid MD CHEMISTRY ORDERABLES Final Resu lt Performing Organization Address [facility]/ZIP Co de Phone Number EXTERNAL LAB * (ABNORMAL) BASIC METABOLIC PANEL (01/19/2018) Blood Fernando Schmid MD CHEMISTRY ORDERABLES Final Resu lt Performing Organization Address [facility]/ZIP Co de Phone Number EXTERNAL LAB * (ABNORMAL) VITAMIN B12 AND FOLATE (01/18/2018) Blood Fernando Schmid MD CHEMISTRY ORDERABLES Final Resu lt Performing Organization Address [facility] Co de Phone Number EXTERNAL LAB * (ABNORMAL) IRON, TIBC, AND PERCENT SATURATION (01/18/2018) Blood Fernando Schmid MD CHEMISTRY ORDERABLES Final Resu lt Performing Organization Address [facility] Co de Phone Number EXTERNAL LAB * FERRITIN (01/18/2018) Blood Fernando Schmid MD CHEMISTRY ORDERABLES Final Resu lt Performing Organization Address [facility] Co de Phone Number EXTERNAL LAB documented in this encounter Visit Diagnoses Diagnosis Acute deep vein thrombosis (DVT) of distal end of right lower extremity- Primary History of anemia due to chronic kidney disease documented in this encounter Care Teams Pierogi Maker Relationship Specialty Start Date End Date Jhonatan Bellamy MD [address] [place] [phone] PCP - General Family Practice 06/05/17 09/10/18 documented as of this encounter
--- OUTSIDE RECORDS SUMMARY | 2024-09-07 19:10 | XMS_ITS | Encounter Summary ---
Author Organization [facility] Address [address] [place] [address] Care Team Providers Care Rehabilitation Teacher Name Role Phone Jhonatan Bellamy MD Primary Care Provider [phone] Encounter Details Date Type Department Care Team (Late st Contact Info) Description 08/09/2017 Orders Only [facility] Oncology and Hematology - [place] [address] [facility] [address] [place] [address] Fernando Schmid MD [address] [facility] [address] [place] [address] Anemia of chronic renal failure, [...] DIFFERENTIAL (08/07/2017) Blood Fernando Schmid MD HEMATOLOGY ORDERABLES Final Res ult EXTERNAL LAB documented in this encounter Visit Diagnoses Diagnosis Anemia of chronic renal failure, stage 4 (severe) documented in this encounter Care Teams Rehabilitation Teacher Relationship Specialty Start Date End Date Jhonatan Bellamy MD [address] [place] [address] PCP - General Family Practice 06/05/17 09/10/18 documented as of this encounter
--- OUTSIDE RECORDS SUMMARY | 2024-09-07 19:10 | XMS_ITS | Encounter Summary ---
Author Organization [facility] Address [address] [place] [address] Care Team Providers Care Pipe Fitter Fire Sprinkler Systems Name Role Phone Jhonatan Bellamy MD Primary Care Provider [phone] Encounter Details Date Type Department Care Team (Late st Contact Info) Description 06/05/2017 Orders Only [facility] Oncology and Hematology - [place] [address] [facility] [address] [place] [address] Fernando Schmid MD [address] [facility] [address] [place] [address] Social History Tobacco Use Types [...] Results * CBC WITHOUT DIFFERENTIAL (06/02/2017) Blood us Fernando Schmid MD HEMATOLOGY ORDERABLES Final Res ult [facility] documented in this encounter Visit Diagnoses Not on filedocumented in this encounter Care Teams Pipe Fitter [employer] Spr[employer] Relationship Specialty Start Date End Date Jhonatan Bellamy MD [address] [place] [phone] PCP - General Family Practice 06/05/17 09/10/18 documented as of this encounter
--- OUTSIDE RECORDS SUMMARY | 2024-09-07 19:10 | XMS_ITS | Clinical Summary ---
Author Organization [facility] Address [address] [place] [address] Care Team Providers Care Fireboat Operator Name Role Phone Aditya Castro MD Primary Care Provider [phone] Alondra Lambert RN Unavailable [phone] Shannon Brock MD, Hamlet P. Unavailable [phone] Leandro Reyes MD Unavailable [phone] Allergies Active Allergy Reactions Criticality Noted Date [...] PUMP: Continue Omnipod 5 insulin pump with [employer] G6 CGM at home settings: TIME [...] 1 tablet (25 mcg total) by mouth geophysical observer before breakfast 30 tablet 1 11/04/19 24 [...] mg SL tablet 12/28/19 18 Active peg 354-cpkhnqknegoa-su ycerin (ARTIFICAL TEARS) 1-0.2-0.2 % ophthalmic solution 1 drop 4 (four) times a day 07/07/20 22 Active potassium chloride ER 20 mEq CR tablet Active Active Problems Problem Noted Date Diagnosed Date End stage renal disease (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 ESRD (end stage renal disease) ([facility]) 022 Assessment & Plan (06/29/2022 10:12 AM GAS TURBINE ASSEMBLER): - Renal consulted, s/p CRRT in the ICU now back on PD. Tolerated well and nephrology following - Trialysis catheter removed - Continue vitamins for renal bone mineral disease. Assessment & Plan (06/28/2022 3:29 PM GAS TURBINE ASSEMBLER): - Renal consulted, s/p CRRT in the [...] 06/22/2022 Assessment & Plan (06/29/2022 10:12 AM GAS TURBINE ASSEMBLER): C/b cardiogenic shock requiring impella in the setting of cath and AHRF 2/2 pulmonary edema, now resolved. TTE demonstrating recovered EF 65% with grade I diastolic dysfunction. - metop as above - continue low dose losartan 12.5mg daily, ok per nephro. Tolerating well - volume management per PD Assessment & Plan (06/28/2022 3:29 PM GAS TURBINE ASSEMBLER): C/b cardiogenic shock requiring impella in the [...] 06/22/2022 Assessment & Plan (06/29/2022 10:12 AM GAS TURBINE ASSEMBLER): Converted to NSR overnight on 06/24. CHADsVASc of 4 not on anticoagulation prior to admission. - cardiology consulted - recommended ongoing rate control - holding off on a/c with high risk for bleeding while on DAPT - reduced metop to 25mg BID in the setting of hypotension, HR 70s NSR Assessment & Plan (06/28/2022 3:30 PM GAS TURBINE ASSEMBLER): Converted to NSR overnight on 06/24. CHADsVASc [...] AC. NSTEMI (non-ST elevated myocardial infarction) ( [facility]) 06/22/2022 Assessment & Plan (06/29/2022 10:11 AM GAS TURBINE ASSEMBLER): With recurrent chest pain post-cath. He has [...] today Assessment & Plan (06/28/2022 3:30 PM GAS TURBINE ASSEMBLER): With recurrent chest pain post-cath. He has [...] 06/22/2022 Assessment & Plan (06/29/2022 10:11 AM GAS TURBINE ASSEMBLER): Secondary to NSTEMI, s/p Impella since removed on 06/10. Resolved. Assessment & Plan (06/23/2022 4:55 PM CDT): Secondary to NSTEMI, s/p Impella since removed on 06/10. Resolved. Assessment & Plan (06/22/2022 8:22 PM CDT): -Secondary to NSTEMI, s/p Impella since removed on 06/10. 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 ([facility]) 05/23/2017 History of coronary artery stent placement 05/23 Macular ischemia 03/17/2017 Combined forms of age-related cataract 7 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 03/17/2017 Type 2 diabetes mellitus treated with insulin ([facility] [place]/HCC) 03/25/2015 Overview (11/25/2016): Insulin treated Type II diabetes mellitus Chronic kidney disease, stage III (moderate) 12/2014 Overview (11/25/2016): Chronic kidney disease, stage 3 Benign essential hypertension 03/25/2015 Overview (11/25/2016): Benign essential HTN Hyperlipidemia 03/25/2015 Overview (11/25/2016): Hyperlipidemia Pain of finger 11/24/2014 Hypersomnia 11/22/2013 Chronic kidney disease 11/22/2013 Hypertension 01/18/2013 Type 1 diabetes mellitus 01/18/2013 Assessment & Plan (06/29/2022 10:12 AM GAS TURBINE ASSEMBLER): A1c well controlled on admission. He uses [...] session Assessment & Plan (06/28/2022 3:28 PM GAS TURBINE ASSEMBLER): A1c well controlled on admission. He uses [...] Type Department Care Team Description 08/06/[address] [facility] Transplant Kidney [address] [facility] [address] Mail[address] [id number] [place] [address] Alondra Lambert RN 07/30/[address] [facility] [address] [facility] [address] Mail[address] [phone] [place] [address] Alondra Lambert RN 07/29/2024 1:15 PM GAS TURBINE ASSEMBLER Lab [facility] [address] [place] [address] End stage renal disease (CMS/HCC) (HCC); ESRD (end stage renal disease) (CMS/HCC) (HCC) 07/29/2024 1:00 PM GAS TURBINE ASSEMBLER Office Visit [facility] Nephrology [address] [facility] Advanced Medicine 5th [place] [address] [place] [address] Radha Bartholomew MD Pre-transplant evaluation for kidney transplant (Primary Dx); End stage renal disease (CMS/HCC) ([facility]); Status post coronary artery bypass grafting; Status post aortic valve replacement; Type 1 diabetes mellitus with chronic kidney disease on chronic dialysis ([facility]) ([facility]); CAD in southern ute artery; Paroxysmal atrial fibrillation ([facility]) ([facility]) 07/29/2024 11:02 AM GAS TURBINE ASSEMBLER - 07/29/2024 11:59 PM GAS TURBINE ASSEMBLER Hospital Encounter [facility] Pulmonary Rehabilitiation Program [address] [facility] Advanced Medicine [address] [place] [address] Discharge Disposition: Discharge to home or self care 07/29/2024 10:58 AM GAS TURBINE ASSEMBLER - 07/29/2024 11:59 PM GAS TURBINE ASSEMBLER Hospital Encounter [facility] Radiology [facility] [address] [place] [address] End stage renal disease ([facility]) ([facility]) Discharge Disposition: Discharge to home or self care 07/29/2024 10:55 AM GAS TURBINE ASSEMBLER - 07/29/2024 11:59 PM GAS TURBINE ASSEMBLER Hospital Encounter [facility] [address] [place] [address] End stage renal disease ([facility]) ([facility]) Discharge Disposition: Discharge to home or self care 07/29/2024 10:53 AM GAS TURBINE ASSEMBLER - 07/29/2024 11:59 PM GAS TURBINE ASSEMBLER Hospital Encounter [facility]) [address] [place] [address] End stage renal disease ([facility]) (HCC) Discharge Disposition: Discharge to home or self care 07/29/2024 9:00 AM GAS TURBINE ASSEMBLER Social Work [facility], [address]th Floor, [place] [address] 07/29/2024 Telephone [facility] and [facility] Transplant Kidney [address] Mail[address] [phone] [place] [address] Alondra Lambert, RN 07/26/2024 Telephone [facility] and [facility] Transplant Kidney [id number] [place] [address] Elsie Cornejo 07/26/[address] [facility] [id number] [place] [address] Alondra Lambert, LUAN ESRD (end stage renal disease) ([facility]) ([facility]) (Primary Dx) 07/26/2024 Telephone [facility] and [facility] Transplant Kidney [id number] [place] [address] Alondra Lambert RN 07/22/2024 Telephone [facility] and [facility] Transplant Kidney [phone] [place] [address] Chris Richard 06/28/[address] [facility]ney [phone] [place] [address] Chris Richard 06/24/[address] [facility]ney [phone] [place] [address] Chris Richard 06/11/2024 Orders Only [facility] Cardiology [address] [place] [address] Karen Barnes NP from Last 3 Months Immunizations Name Administration [...] doctor or pharmacy Never 12/01/2023 [facility] Utilities Answer Date Recorded In the past 12 months has th e [employer]cierge, gas, oil, or water [employer] threatened to shut off services in your home? No 08/01/2024 Social Connection and Isolation Panel [NHANES] A nswer Date Recorded In a typical week, how many times do you talk on the phone with family, friends, or neighbors? Twice a week 08/01/2024 How often do you get together with friends or re latives? Once a week 08/01/2024 How often do you attend caodaism or lutheran serv ices? Never 08/01/2024 Do you belong [...] on file Legal Sex Male 3:42 AM GAS TURBINE ASSEMBLER Gender Identity Not on file Sexual Orientation Not on file Obstetrics History Last Filed Vital Signs Vital Sign Reading Time Taken Comments Blood Pressure 122/75 07/29/2024 1:00 PM GAS TURBINE ASSEMBLER Pulse 116 07/29/2024 1:00 PM GAS TURBINE ASSEMBLER Temperature 36.8 ??C (98.2 ??F) 07/29/2024 1:00 PM CS T Respiratory Rate 16 12/01/2023 11:1 3 AM CDT Oxygen Saturation 96% 12/01/2023 11: 13 AM CDT Inhaled Oxygen Concentration - - Weight 121.2 kg (267 lb 1.6 oz) 07/29/2024 1:00 PM GAS TURBINE ASSEMBLER Height 177.8 cm (5' 10 ) 07/29/2024 1:00 PM GAS TURBINE ASSEMBLER Body Mass Index 38.32 07/29/2024 1:00 PM GAS TURBINE ASSEMBLER Plan of Treatment Health Maintenance Due Date Last Done Comments Albumin Creatinine Ratio, Urine 1970 Colon Cancer Screening-Colonoscopy 1968 Depression Screening 1968 Foot Exam 1968 Dilated Eye Exam 1978 Regular Well Visit/Exam 18-64 1986 Zoster Vaccine (1 of 2) 2018 Covid-19 Vaccine (3 - 2023-2 5 season) 2024 09/21/2021, 11/04/2020 Influenza Vaccine (#1) 2024 , 07/19/2022, 06/04/2022, Additional history exists TSH Level [...] 03/23/2017, 03/26/2015 Medical Devices Implanted Type Area Voltmeter Operator Device Identifier Shelf Expiration Date Model / Serial / Lot Kyle Vascular Device Clsr Perclose Prostyle Sut-Mediatd Closure-Repair Sys 06564-73 - [id number] Implanted:Qty: 1 on 06/10/2022 by Champ Osborne MD PhD at [facility] Other - see comments Right: Femoral [employer] 01/19/2024 [id number] / / [id number] [employer] Mary Synergy Xd Monorail 2.5mm 48mm 144cm Delivery System 1 Access [id number] - [id number] Implanted:Qty: 1 on 06/07/2022 by Champ Osborne MD PhD at [facility] Stent [employer] Mary 10/27/2023 [id number] / / [id number] [employer] Mary Synergy Xd Monorail 3mm 24mm 144cm Delivery System 1 Access Port [id number] - [id number] Implanted:Qty: 1 on 06/07/2022 by Champ Osborne MD PhD at [facility] Stent [employer] Mary 07/28/2023 [id number] / / [id number] [employer] Mary Synergy Xd Monorail 2.5mm 12mm 144cm Delivery System 1 Access [id number] - [id number] - [id number] Implanted:Qty: 1 on 06/07/2022 by Champ Osborne MD PhD at [facility] Stent [employer] Mary 05/03/2023 [id number] / [id number] / [id number] Dai Mary [id number] Device Closure Angio-Seal Vip Bondek-Plus Polyglyd L70 Cm Od6 Fr Odsec.035 In Vascular - [id number] Implanted:Qty: 1 on 01/21/2021 by Hamlet Ortega Jr., MD at [facility] Left: Groin [employer] Mary [id number] / / Kyle Vascular Device Clsr Perclose Prostyle Sut-Mediatd Closure-Repair Sys 39433-44 - [id number] Implanted:Qty: 1 on 06/07/2022 by Champ Osborne MD PhD at [facility] [employer] 01/19/202493189-24 / [id number] [employer] Device Clsr Perclose Prostyle Sut-Mediatd Closure-Repair Sys 42658-72 - [id number] Implanted:Qty: 1 on 06/07/2022 by Champ Osborne MD PhD at [facility] [employer] 11/19/202329537-98 / [id number] Bard Access Systems Power-Trialysis 13fr 30cm 3 Lumen Kink Resistance Symmetric Tip [id number] - [id number] Implanted:Qty: 1 on 06/07/2022 by Champ Osborne MD PhD at [facility] Right: Jugular Ramirez Throckmorton 07/20/2024 [id number] / / [id number] [employer] Impella Cp Percutaneous Left Ventricular Assist Device 5454-4499 - [id number] Implanted:Qty: 1 on 06/07/2022 by Champ Osborne MD PhD at [facility] Left: Ventricle [employer] [id number] / / Bard Access Systems Power-Trialysis 13fr 20cm 3 Lumen Short Term Dialysis Straight [id number] - [id number] Implanted:Qty: 1 on 06/18/2022 at [facility] Ramirez Chapito 07/20/2024 [id number] / / [id number] Rl Biomet Inc Screw Bone Slf Drl Full Thread Locking 3.5x14mm Ti 100.035.14 - [id number] Implanted:Qty: 6 on 10/17/2023 by Lorne Mcnulty MD at [facility] N/A: Sternum [employer] Inc 100.035.1 4 / / Rl [employer] Inc Plate Bone Low Profile 6 Hole H Shape Sternum Ti 115.102.06 - [id number] Implanted:Qty: 2 on 10/17/2023 by Lorne Mcnulty MD at [facility] N/A: Sternum [employer] 115.102.0 6 / / Rl [employer] Plate Bone Low Profile 6 Hole O Shape Sternum Ti 115.104.06 - [id number] Implanted:Qty: 1 on 10/17/2023 by Lorne Mcnulty MD at [facility] N/A: Sternum [employer] 115.104.0 6 / / On-X Intrnl Valve Coronary Aortic Mechanical On X 25mm Onxane-25 - [id number] - [id number] Implanted:Qty: 1 on 10/17/2023 by Lorne Mcnulty MD at [facility] N/A: Heart On-X Intrnl 01/22/2028 ONXANE-25 / [id number] / Rl [employer] Inc Screw Bone Slf Drl Full Thread Locking 3.5x18mm Ti 100.035.18 - [id number] Implanted:Qty: 12 on 10/17/2023 by Lorne Mcnulty MD at [facility] N/A: Sternum Rl [employer] Inc 100.035.1 8 / / Explanted Type Area Voltmeter Operator Device Identifier Shelf Expiration Date Model / Serial / Lot Bard Peripheral Vascular Bard .25x.25in Maurice Thk1.65mm Square Pledget [employer]ovascular Ptfe [id number] - [id number] Explanted:Qty: 1 on 10/17/2023 by Lorne Mcnulty MD at [facility] N/A: Heart Bard Peripheral Vascular 05/18/2026 [id number] / / Procedures Procedure Name Priority Date/Time Associated Diagnosis Comments HLA SOLID ORGAN TYPING REPORT 08/02/2024 9:04 AM GAS TURBINE ASSEMBLER SIX MINUTE WALK Routine 07/29/2024 2:46 PM GAS TURBINE ASSEMBLER End stage renal disease (CMS/HCC) (HCC) CT ABDOMEN PELVIS WO CONTRAST Schedule Routine, Read Routine (OP Routine) 07/29/2024 12:43 PM GAS TURBINE ASSEMBLER End stage renal disease (CMS/HCC) (HCC) XR ORTHOPANTOGRAM/PANOR EX Schedule Routine, Read Routine (OP Routine) 07/29/2024 11:44 AM GAS TURBINE ASSEMBLER End stage renal disease (CMS/HCC) (HCC) TYPE AND SCREEN Routine 07/29/2024 11:23 AM GAS TURBINE ASSEMBLER End stage renal disease (CMS/HCC) (HCC) ECG 12-LEAD Routine 07/29/2024 11:14 AM GAS TURBINE ASSEMBLER End stage renal disease (CMS/HCC) (HCC) ABO/RH Routine 07/29/2024 11:13 AM GAS TURBINE ASSEMBLER EGFR Routine 07/29/2024 11:01 AM GAS TURBINE ASSEMBLER End stage renal disease (CMS/HCC) (HCC) DIFFERENTIAL AUTO Routine 07/29/2024 11: 01 AM GAS TURBINE ASSEMBLER End stage renal disease (CMS/HCC) (HCC) CBC WITH AUTO DIFFERENTIAL Routine 07/29/2024 11:01 AM GAS TURBINE ASSEMBLER End stage renal disease (CMS/HCC) (HCC) COMPREHENSIVE METABOLIC PANEL Routine 07/29/2024 11:01 AM GAS TURBINE ASSEMBLER End stage renal disease (CMS/HCC) (HCC) CREATININE, URINE, RANDOM Routine 07/29/2024 11:01 AM GAS TURBINE ASSEMBLER End stage renal disease (CMS/HCC) (HCC) FERRITIN Routine 07/29/2024 11:01 AM GAS TURBINE ASSEMBLER End stage renal disease (CMS/HCC) (HCC) GAMMA GT Routine 07/29/2024 11:01 AM GAS TURBINE ASSEMBLER End stage renal disease (CMS/HCC) (HCC) HEMOGLOBIN A1C Routine 07/29/2024 11:01 AM GAS TURBINE ASSEMBLER End stage renal disease (CMS/HCC) (HCC) IRON PROFILE W/ IBC Routine 07/29/2024 1 1:01 AM GAS TURBINE ASSEMBLER End stage renal disease (CMS/HCC) (HCC) LIPID PANEL Routine 07/29/2024 11:01 AM GAS TURBINE ASSEMBLER End stage renal disease (CMS/HCC) (HCC) PTH Routine 07/29/2024 11:01 AM GAS TURBINE ASSEMBLER End stage renal disease (CMS/HCC) (HCC) APTT Routine 07/29/2024 11:01 AM GAS TURBINE ASSEMBLER End stage renal disease (CMS/HCC) (HCC) PHOSPHORUS Routine 07/29/2024 11:01 AM GAS TURBINE ASSEMBLER End stage renal disease (CMS/HCC) (HCC) PROTEIN, URINE, RANDOM Routine 07/29/2024 11:01 AM GAS TURBINE ASSEMBLER End stage renal disease (CMS/HCC) (HCC) PROTIME-INR Routine 07/29/2024 11:01 AM GAS TURBINE ASSEMBLER End stage renal disease (CMS/HCC) (HCC) URIC ACID Routine 07/29/2024 11:01 AM GAS TURBINE ASSEMBLER End stage renal disease (CMS/HCC) (HCC) PSA SCREEN Routine 07/29/2024 11:01 AM GAS TURBINE ASSEMBLER End stage renal disease (CMS/HCC) (HCC) LR HLA TYPING (CLASS I AND CLASS II) Routine 07/29/2024 11:01 AM GAS TURBINE ASSEMBLER End stage renal disease (CMS/HCC) (HCC) HLA CLASS I DNA (ABC) RECIPIENT Routine 07/29/2024 11:01 AM GAS TURBINE ASSEMBLER End stage renal disease (CMS/HCC) (HCC) HLA CLASS II DNA (DR, DQ, DP) RECIPIENT Routine 07/29/2024 11:01 AM GAS TURBINE ASSEMBLER End stage renal disease (CMS/HCC) (HCC) HLA ANTIBODY SCREEN - SAB (CLASS I AND CLASS II) Routine 07/29/2024 11:01 AM GAS TURBINE ASSEMBLER End stage renal disease (CMS/HCC) (HCC) HLA ANTIBODY SCREEN BY SINGLE ANTIGEN Routine 07/29/2024 11:01 AM GAS TURBINE ASSEMBLER End stage renal disease (CMS/HCC) (HCC) CMV, IGG Routine 07/29/2024 11:01 AM GAS TURBINE ASSEMBLER End stage renal disease (CMS/HCC) (HCC) MADIHA-MORRIS VIRUS VCA ANTIBODY PANEL Routine 07/29/2024 11:01 AM GAS TURBINE ASSEMBLER End stage renal disease (CMS/HCC) (HCC) HIV 1/2 ANTIBODY PLUS P24 ANTIGEN Routine 07/29/2024 11:01 AM GAS TURBINE ASSEMBLER End stage renal disease (CMS/HCC) (HCC) HSV 1 ANTIBODY, IGG Routine 07/29/2024 1 1:01 AM GAS TURBINE ASSEMBLER End stage renal disease (CMS/HCC) (HCC) HSV 2 ANTIBODY, IGG Routine 07/29/2024 1 1:01 AM GAS TURBINE ASSEMBLER End stage renal disease (CMS/HCC) (HCC) HEPATITIS B CORE ANTIBODY, TOTAL Routine 07/29/2024 11:01 AM GAS TURBINE ASSEMBLER End stage renal disease (CMS/HCC) (HCC) HEPATITIS B SURFACE ANTIBODY (IMMUNE STATUS) Routine 07/29/2024 11:01 AM GAS TURBINE ASSEMBLER End stage renal disease (CMS/HCC) (HCC) HEPATITIS B SURFACE ANTIGEN Routine 07/29/2024 11:01 AM GAS TURBINE ASSEMBLER End stage renal disease (CMS/HCC) (HCC) HEPATITIS C ANTIBODY Routine 07/29/2024 11:01 AM GAS TURBINE ASSEMBLER End stage renal disease (CMS/HCC) (HCC) RPR Routine 07/29/2024 11:01 AM GAS TURBINE ASSEMBLER End stage renal disease (CMS/HCC) (HCC) VARICELLA ZOSTER ANTIBODY, IGG Routine 07/29/2024 11:01 AM GAS TURBINE ASSEMBLER End stage renal disease (CMS/HCC) (HCC) URINALYSIS, MICROSCOPIC ONLY Routine 07/29/2024 10:53 AM GAS TURBINE ASSEMBLER End stage renal disease (CMS/HCC) (HCC) OXALATE Routine 07/29/2024 10:53 AM GAS TURBINE ASSEMBLER ESRD (end stage renal disease) (CMS/HCC) (HCC) URINALYSIS AND REFLEX TO MICROSCOPIC Routine 07/29/2024 10:53 AM GAS TURBINE ASSEMBLER End stage renal disease (CMS/HCC) (HCC) CARDIOLOGY DOCUMENT SCAN Routine 06/07/2024 11:10 AM CDT TSH Routine 10/27/2023 2:30 AM GAS TURBINE ASSEMBLER from Last 3 Months or Most Recently Relevant to Health Maintenance Results * HLA Solid Organ Typing Report (08/02/2024 9:04 AM GAS TURBINE ASSEMBLER) Jossie King MD LAB GENETIC TESTIN G Final Result * Six Minute Walk - (07/29/2024 2:46 PM GAS TURBINE ASSEMBLER) Anatomical Region Laterality Modality PFT Narrative 07/29/2024 3:52 PM GAS TURBINE ASSEMBLER Table formatting from the original result was not included. Davey Pickard V., MANAGER LINUX on 07/29/2024 ??2:45 PM Table formatting from the original note was not included. 6 MINUTE WALK RESULTS Name: Juvenal Daigle Jr : 1970 DOS: 07/29/2024 Diagnosis: ESRD/KTE MANAGER LINUX performed walk: Carmenza Pickard Rest: 1 min [...] Abdomen Pelvis WO Contrast (07/29/2024 12:43 PM GAS TURBINE ASSEMBLER) Anatomical Region Laterality Modality Body N/A Computed Tomogra phy 07/29/2024 1:04 PM GAS TURBINE ASSEMBLER Impressions 07/29/2024 1:04 PM GAS TURBINE ASSEMBLER 1. ??Moderate discontinuous atherosclerotic calcifications involve [...] Teresa Rivera M.D. Narrative 07/29/2024 1:04 PM GAS TURBINE ASSEMBLER EXAMINATION: ??Computed tomography of the abdomen [...] Electronically signed by: Maria Teresa Rivera M.D. [facility]niraj King MD IMG CT PROCEDURES Final Result * XR Orthopantogram Panorex (07/29/2024 11:44 AM GAS TURBINE ASSEMBLER) Anatomical Region Laterality Modality Head and Neck N/A Panoramic X-Ray 07/29/2024 12:5 9 PM GAS TURBINE ASSEMBLER Impressions 07/29/2024 12:59 PM GAS TURBINE ASSEMBLER 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 Electronically signed by: Julio Pinedo M.D. Narrative 07/29/2024 12:59 PM GAS TURBINE ASSEMBLER EXAMINATION: XR ORTHOPANTOGRAM/PANOREX HISTORY: Kidney Transplant Evaluation [...] * Type and screen (07/29/2024 11:23 AM GAS TURBINE ASSEMBLER) Maribel, indirect Negative ABO Rh A Positive [facility] Blood 07/29/2024 11:2 3 AM GAS TURBINE ASSEMBLER 07/29/2024 11:43 AM GAS TURBINE ASSEMBLER Narrative [facility] - 07/29/2024 12:45 PM GAS TURBINE ASSEMBLER Please draw the ABO and the Type and Screen as two separate blood draws with each stamped with the two different times stamps as this is a regulatory requirement for this patient to be listed for Kidney Transplant. ??This lab is being obtained as part of a Kidney transplant evaluation, is time sensitive, and should only be drawn during the evaluation visit at [facility] Lab. Has the patient had Daratumumab or Isatuximab in the past 6 months?->Unknown Jossie King MD LAB BLOOD BANK ERNESTO T ORDERABLES Final Result [facility] [place] [address] * ECG 12 lead (07/29/2024 11:14 AM GAS TURBINE ASSEMBLER) Ventricular Rate EKG/Min 117 BPM [facility] Atrial Rate 117 BPM [facility] SC-Interval (MSEC) 144 ms [facility] QRS-Interval (MSEC) 126 ms [facility] QT-Interval (MSEC) 366 ms [facility] QTc 510 ms [facility] R Weed -40 degrees [facility] T Weed 147 degrees [facility] Diagnosis Poor data quality, interpretation [...] [facility] 07/29/2024 11:1 4 AM GAS TURBINE ASSEMBLER 07/29/2024 3:38 PM GAS TURBINE ASSEMBLER Jossie King MD ECG ORDERABLES Fi nal Result Performing Organization Address City/[facility] Co de Phone Number [facility] * ABO/Rh (07/29/2024 11:13 AM GAS TURBINE ASSEMBLER) ABO Rh A Positive Blood 07/29/2024 11:1 3 AM GAS TURBINE ASSEMBLER 07/29/2024 2:45 PM GAS TURBINE ASSEMBLER Jossie King MD LAB BLOOD BANK ERNESTO T ORDERABLES Final Result [facility] [place] [address] * LR HLA Typing (Class I and Class II) (07/29/2024 11:01 AM GAS TURBINE ASSEMBLER) r-SSO HISTOTRAC A First Allele A*03 HISTOTRAC [...] 07/30/24 HISTOTRAC Blood 07/29/2024 11:0 1 AM GAS TURBINE ASSEMBLER 08/02/2024 9:03 AM GAS TURBINE ASSEMBLER Narrative HISTOTRAC - 08/02/2024 9:03 AM GAS TURBINE ASSEMBLER DNA was extracted from whole blood or buccal cell specimens, and relevant genomic regions were amplified by polymerase chain reactions (PCR). HLA typing was performed on PCR amplicons using reverse sequence-specific oligonucleotide (r-SSO) and/or sequence-specific primers (SSP) based techniques. r-SSO and SSP are FDA approved as IVD tests and validated by the [facility]. Testing performed at the [facility], [address] [place] [address], 5th floor, [place], [address]. [facility] # [id number]. Dorothy Meade, Ph.D., Veneer Matcher, HLA Laboratory Rell Samuels M.D., Ph.D., Pattern Painter, HLA Laboratory Licha Nieto, Ph.D., CLIA Pattern Painter, [facility] Current methodology comment last revised on 04/25/17. Jossie King MD LAB BLOOD ORDERABL ES Final Result [facility] * Collection Task for HLA Typing 1 (07/29/2024 11:01 AM GAS TURBINE ASSEMBLER) HLA Class I DNA (ABC) Recipient Received Blood 07/29/2024 11:0 1 AM GAS TURBINE ASSEMBLER 07/29/2024 11:56 AM GAS TURBINE ASSEMBLER Jossie King MD LAB BLOOD ORDERABL ES Final Result Performing Organization Address City/[facility] Co de Phone Number ALESSANDRA [facility] [place] [address] * Collection Task for HLA Antibody Screen (07/29/2024 11:01 AM GAS TURBINE ASSEMBLER) Pathologist [facility] HLA Antibody Screen By Single Antigen Received Blood 07/29/2024 11:0 1 AM GAS TURBINE ASSEMBLER 07/29/2024 11:56 AM GAS TURBINE ASSEMBLER Jossie King MD LAB BLOOD ORDERABL ES Final Result Performing Organization Address [facility] de Phone Number [facility] [place] [address] * Collection Task for HLA Typing 2, Patient (07/29/2024 11:01 AM GAS TURBINE ASSEMBLER) Pathologist [facility] HLA Class II DNA (DR, DQ, DP) Recipient Received Blood 07/29/2024 11:0 1 AM GAS TURBINE ASSEMBLER 07/29/2024 11:56 AM GAS TURBINE ASSEMBLER Jossie King MD LAB BLOOD ORDERABL ES Final Result Performing Organization Address City/[facility] Co de Phone Number ALESSANDRA [facility] [place] [address] * (ABNORMAL) eGFR (07/29/2024 11:01 AM GAS TURBINE ASSEMBLER) Pathologist [facility] eGFR 7(L) >=60 mL/min/1. 73 m2 Comment: [...] reviewed 2021. Blood 07/29/2024 11:0 1 AM GAS TURBINE ASSEMBLER 07/29/2024 11:33 AM GAS TURBINE ASSEMBLER us Jossie King MD LAB BLOOD ORDERABL ES Final Result Performing Organization Address City/State/[facility] Co de Phone Number [facility] [place] [address] * Differential, auto (07/29/2024 11:01 AM GAS TURBINE ASSEMBLER) Neutrophil abs 3.1 1.5 - 6.5 K/cumm Imm gran abs 0.0 0.0 - 0.1 K/cumm [facility] Lymphocyte abs 1.1 0.8 - 3.3 K/cumm [...] on 2017. Blood 07/29/2024 11:0 1 AM GAS TURBINE ASSEMBLER 07/29/2024 11:34 AM GAS TURBINE ASSEMBLER us Jossie King MD LAB BLOOD ORDERABL ES Final Result [facility] Department [place] [address] * PSA screen (07/29/2024 11:01 AM GAS TURBINE ASSEMBLER) PSA-Total 0.55 <=3.90 ng/mL Comment: Interpretive Data ?AGE ? SEX ?REFERENCE INTERVAL 0 minutes-150 years ?Female ?None 0 minutes-49 years ? Male ?None ? 50-59 years ? Male ?0-3.90 ? 60-69 years ? Male ?0-5.40 ? 70-79 years ? Male ?0-6.20 ? 80-150 years ?Male ?0-6.20 The [employer] PSA Total assay procedure was used. Results from different manufacturers or methods may not be comparable. Serial testing should be performed using the same method. Current interpretive data last revised 21. Blood 07/29/2024 11:0 1 AM GAS TURBINE ASSEMBLER 07/29/2024 11:33 AM GAS TURBINE ASSEMBLER Narrative [facility] - 07/29/2024 12:39 PM GAS TURBINE ASSEMBLER This lab is being obtained as part of a Kidney transplant evaluation, is time sensitive, and should only be drawn during the evaluation visit at [facility] Lab. us Jossie King MD LAB BLOOD ORDERABL ES Final Result [facility] Department [place] [address] * (ABNORMAL) Iron profile w/ IBC (07/29/2024 11:01 AM GAS TURBINE ASSEMBLER) Iron 62 50 - 150 mcg/dL TIBC 208(L) 250 - 400 mcg/dL [facility] Transferrin saturation 30 20 - 50 % [facility] Blood 07/29/2024 11:0 1 AM GAS TURBINE ASSEMBLER 07/29/2024 11:33 AM GAS TURBINE ASSEMBLER Narrative [facility] - 07/29/2024 12:10 PM GAS TURBINE ASSEMBLER This lab is being obtained as part of a Kidney transplant evaluation, is time sensitive, and should only be drawn during the evaluation visit at [address] Jossie King MD LAB BLOOD ORDERABL ES Final Result Performing Organization Address [facility] de Phone Number [facility] [place] [address] * HIV 1/2 Antibody plus p24 Antigen Blood (07/29/2024 11:01 AM GAS TURBINE ASSEMBLER) HIV 1/2 ab + p24 ag Nonreactive Nonreactive Comment:Nonreactive for HIV- 1 antigen and HIV-1/HIV-2 antibodies. No laboratory evidence of HIV infection. If acute HIV infection is suspected, consider testing for HIV-1 RNA. Current interpretive data was last revised on 22. Blood 07/29/2024 11:0 1 AM GAS TURBINE ASSEMBLER 07/29/2024 11:32 AM GAS TURBINE ASSEMBLER Narrative AL[facility]ANDRA [facility] - 07/29/2024 12:13 PM GAS TURBINE ASSEMBLER This lab is being obtained as part of a Kidney transplant evaluation, is time sensitive, and should only be drawn during the evaluation visit at [address] Jossie King MD LAB MICROBIOLOGY - GENERAL ORDERABLES Final Result Performing Organization Address [facility] de Phone Number [facility] [place] [address] * (ABNORMAL) CMV, IgG Blood (07/29/2024 11:01 AM GAS TURBINE ASSEMBLER) Pathologist [facility] CMV IgG Positive( A) Negative Comment: [...] CMV infection. Blood 07/29/2024 11:0 1 AM GAS TURBINE ASSEMBLER 07/29/2024 11:33 AM GAS TURBINE ASSEMBLER Narrative [facility]DR[facility] - 07/29/2024 1:44 PM GAS TURBINE ASSEMBLER This lab is being obtained as part of a Kidney transplant evaluation, is time sensitive, and should only be drawn during the evaluation visit at [facility] Lab. us Jossie King MD LAB MICROBIOLOGY - GENERAL ORDERABLES Final Result [facility] [place] [address] * HLA Antibody Screen - SAB (Class I and Class II) (07/29/2024 11:01 AM GAS TURBINE ASSEMBLER) Class I Treatment EDTA HISTOTRAC Class I [...] DR52 HISTOTRAC Blood 07/29/2024 11:0 1 AM GAS TURBINE ASSEMBLER 08/02/2024 9:46 AM GAS TURBINE ASSEMBLER Narrative [facility] - 08/02/2024 9:46 AM GAS TURBINE ASSEMBLER Single-antigen HLA antibody screen is performed on serum samples using a method developed and validated by the [facility] based on an FDA-approved IVD kit (LABScreen Single-Antigen, [employer], [place], [place]). All patient serum samples are pretreated with EDTA before the screen to prevent complement interference. Additional serum treatments, such as adsorption and DTT treatment, may be performed as indicated. ??Interpretive comments: Low risk: MFI [id number]. Moderate risk: MFI [id number]. Increased risk: MFI >/= 5000. The presence [...] antigens to avoid. Testing performed at the [facility], [address] [place] [address], 5th floor, [place], [address]. CLIA # [id number]. Dortohy Meade, Ph.D., Veneer Matcher, HLA Laboratory Rell Samuels M.D., Ph.D., Pattern Painter, HLA Laboratory Licha Nieto, Ph.D., CLIA Pattern Painter, [facility] Current methodology and interpretive comments last revised on 09/15/2022. Jossie King MD LAB BLOOD ORDERABL ES Final Result [facility] * (ABNORMAL) CBC with auto differential (07/29/2024 11:01 AM GAS TURBINE ASSEMBLER) WBC 5.1 3.8 - 9.9 K/cumm Hgb [...] [facility] Blood 07/29/2024 11:0 1 AM GAS TURBINE ASSEMBLER 07/29/2024 11:34 AM GAS TURBINE ASSEMBLER Narrative [facility] - 07/29/2024 11:45 AM GAS TURBINE ASSEMBLER This lab is being obtained as part of a Kidney transplant evaluation, is time sensitive, and should only be drawn during the evaluation visit at [address] Jossie King MD LAB BLOOD ORDERABL ES Final Result Performing Organization Address City/[facility]/ZIP Co de Phone Number [facility] [place] [address] * Hepatitis C antibody Blood (07/29/2024 11:01 AM GAS TURBINE ASSEMBLER) Hep C Ab Nonreactive Nonreactive Comment:Antibodies to HCV no t detected. Does NOT exclude the possibility of recent exposure to HCV. Current interpretive data was last revised on 22 Blood 07/29/2024 11:0 1 AM GAS TURBINE ASSEMBLER 07/29/2024 11:32 AM GAS TURBINE ASSEMBLER Narrative [facility] - 07/29/2024 12:47 PM GAS TURBINE ASSEMBLER This lab is being obtained as part of a Kidney transplant evaluation, is time sensitive, and should only be drawn during the evaluation visit at [address]. Jossie King MD LAB MICROBIOLOGY - GENERAL ORDERABLES Final Result Performing Organization Address City/[facility]/ZIP Co de Phone Number [facility] [place] [address] * (ABNORMAL) Madiha-Morris virus (EBV) antibody panel Blood (07/29/2024 11:01 AM GAS TURBINE ASSEMBLER) [facility] EBV nuclear Ab Positive(A) Negative Comment:Indicates the [...] [facility] Blood 07/29/2024 11:0 1 AM GAS TURBINE ASSEMBLER 07/29/2024 11:33 AM GAS TURBINE ASSEMBLER Narrative [facility] - 07/29/2024 1:43 PM GAS TURBINE ASSEMBLER This lab is being obtained as part of a Kidney transplant evaluation, is time sensitive, and should only be drawn during the evaluation visit at [address] Lab. Jossie King MD LAB MICROBIOLOGY - GENERAL ORDERABLES Final Result [facility] [place] [address] * Hepatitis B core antibody, total Blood (07/29/2024 11:01 AM GAS TURBINE ASSEMBLER) [facility] Hep B core IgG/IgM Nonreactive Nonreactive Blood 07/29/2024 11:0 1 AM GAS TURBINE ASSEMBLER 07/29/2024 11:32 AM GAS TURBINE ASSEMBLER Narrative [facility] - 07/29/2024 12:47 PM GAS TURBINE ASSEMBLER This lab is being obtained as part of a Kidney transplant evaluation, is time sensitive, and should only be drawn during the evaluation visit at [address] Lab. Jossie King MD LAB MICROBIOLOGY - GENERAL ORDERABLES Final Result [facility] [place] [address] * Protein, urine, random (07/29/2024 11:01 AM GAS TURBINE ASSEMBLER) Protein, ur, quant 121.2 mg/dL Comment: Interpretive Data No reference range established. Current interpretive data was last revised 2019. Urine 07/29/2024 11:0 1 AM GAS TURBINE ASSEMBLER 07/29/2024 11:32 AM GAS TURBINE ASSEMBLER Narrative [facility] - 07/29/2024 12:18 PM GAS TURBINE ASSEMBLER This lab is being obtained as part of a Kidney transplant evaluation, is time sensitive, and should only be drawn during the evaluation visit at [address] Lab. Jossie King MD LAB URINE ORDERABL ES Final Result Performing Organization Address [facility] [place] [address] * Creatinine, urine, random (07/29/2024 11:01 AM GAS TURBINE ASSEMBLER) Creatinine Ur 167.1 mg/dL Comment: Interpretive Data No reference range established. Current interpretive data was last revised 2019. Urine 07/29/2024 11:0 1 AM GAS TURBINE ASSEMBLER 07/29/2024 11:32 AM GAS TURBINE ASSEMBLER Narrative [facility] - 07/29/2024 12:18 PM GAS TURBINE ASSEMBLER This lab is being obtained as part of a Kidney transplant evaluation, is time sensitive, and should only be drawn during the evaluation visit at [address] Lab. Jossie King MD LAB URINE ORDERABL ES Final Result [facility] [place] [address] * HSV 2 IgG Antibody Blood (07/29/2024 11:01 AM GAS TURBINE ASSEMBLER) HSV 2 IgG Nonreactive Nonreactive Comment: Interpretive Data 1. Nonreactive: No detectable IgG antibody to HSV-2. 2. Equivocal: Presence or absence of detectable antibodies to HSV-2 cannot be determined and the test should be repeated. 3. Reactive: Indicates presence of detectable IgG antibody to HSV-2. Current interpretive data was last revised on 2022. Blood 07/29/2024 11:0 1 AM GAS TURBINE ASSEMBLER 07/29/2024 11:33 AM GAS TURBINE ASSEMBLER Narrative [facility] - 07/29/2024 1:44 PM GAS TURBINE ASSEMBLER This lab is being obtained as part of a Kidney transplant evaluation, is time sensitive, and should only be drawn during the evaluation visit at [address]. Jossie King MD LAB MICROBIOLOGY - GENERAL ORDERABLES Final Result Performing Organization Address [facility] Co de Phone Number [facility] [place] [address] * (ABNORMAL) HSV 1 IgG Antibody Blood (07/29/2024 11:01 AM GAS TURBINE ASSEMBLER) [facility] HSV 1 IgG Reactive( A) Nonreactive Comment: Interpretive Data 1. Nonreactive: No detectable IgG antibody to HSV-1. 2. Equivocal: Presence or absence of detectable antibodies to HSV-1 cannot be determined and the test should be repeated. 3. Reactive: Indicates presence of detectable IgG antibody to HSV-1. Current interpretive data was last revised on 2016. Blood 07/29/2024 11:0 1 AM GAS TURBINE ASSEMBLER 07/29/2024 11:33 AM GAS TURBINE ASSEMBLER Narrative [facility] - 07/29/2024 1:44 PM GAS TURBINE ASSEMBLER This lab is being obtained as part of a Kidney transplant evaluation, is time sensitive, and should only be drawn during the evaluation visit at [address]. Jossie King MD LAB MICROBIOLOGY - GENERAL ORDERABLES Final Result Performing Organization Address [facility] Co de Phone Number [facility] [place] [address] * RPR Blood (07/29/2024 11:01 AM GAS TURBINE ASSEMBLER) Pathologist [facility] RPR Nonreactive Nonreactive Blood 07/29/2024 11:0 1 AM GAS TURBINE ASSEMBLER 07/29/2024 11:33 AM GAS TURBINE ASSEMBLER Narrative [facility] - 07/29/2024 12:34 PM GAS TURBINE ASSEMBLER This lab is being obtained as part of a Kidney transplant evaluation, is time sensitive, and should only be drawn during the evaluation visit at [address] Lab. Jossie King MD LAB MICROBIOLOGY - GENERAL ORDERABLES Final Result Performing Organization Address City/[facility]/ZIP Co de Phone Number [facility] [place] [address] * Hepatitis B surface antibody (immune status) Blood (07/29/2024 11:01 AM GAS TURBINE ASSEMBLER) [facility] HBsAb (immune status) Reactive Comment:This result is consi stent with immunity to Hepatitis B Virus when used in the setting of routine screening. Current interpretive data was last revised on 22 Blood 07/29/2024 11:0 1 AM GAS TURBINE ASSEMBLER 07/29/2024 11:32 AM GAS TURBINE ASSEMBLER Narrative [facility] - 07/29/2024 12:47 PM GAS TURBINE ASSEMBLER This lab is being obtained as part of a Kidney transplant evaluation, is time sensitive, and should only be drawn during the evaluation visit at [address] Jossie King MD LAB MICROBIOLOGY - GENERAL ORDERABLES Final Result [facility] [place] [address] * Hepatitis B Surface Antigen Blood (07/29/2024 11:01 AM GAS TURBINE ASSEMBLER) Pathologist [facility] HepBsAg Nonreactive Nonreactive Blood 07/29/2024 11:0 1 AM GAS TURBINE ASSEMBLER 07/29/2024 11:32 AM GAS TURBINE ASSEMBLER Narrative [facility] - 07/29/2024 12:47 PM GAS TURBINE ASSEMBLER This lab is being obtained as part of a Kidney transplant evaluation, is time sensitive, and should only be drawn during the evaluation visit at [address]. Jossie King MD LAB MICROBIOLOGY - GENERAL ORDERABLES Final Result Performing Organization Address [facility] de Phone Number [facility] [place] [address] * (ABNORMAL) aPTT (07/29/2024 11:01 AM GAS TURBINE ASSEMBLER) aPTT 61(H) 28 - 38 sec Comment: Interpretive Data Heparin therapeutic range: 66.0 - 100.0 seconds. Range based on correlation with therapeutic heparin activity range of 0.3 - 0.7 Units/mL. Current interpretive data was last revised on 2023. Blood 07/29/2024 11:0 1 AM GAS TURBINE ASSEMBLER 07/29/2024 11:32 AM GAS TURBINE ASSEMBLER Narrative [facility] - 07/29/2024 11:42 AM GAS TURBINE ASSEMBLER This lab is being obtained as part of a Kidney transplant evaluation, is time sensitive, and should only be drawn during the evaluation visit at [address]. Jossie King MD LAB BLOOD ORDERABL ES Final Result Performing Organization Address [facility] de Phone Number [facility] [place] [address] * (ABNORMAL) Protime-INR (07/29/2024 11:01 AM GAS TURBINE ASSEMBLER) PT 50.6(H) 9.7 - 13.0 sec INR 4.54(H) 0.90 - 1.20 [facility] Comment: Interpretive data Oral anticoagulant therapeutic ranges: Venous thromboembolism prophylaxis or treatment: 2.0-3.0 CARDIOLOGY Standard range: 2.0-3.0 High-intensity range: 2.5-3.5 Refer to indication-specific guidelines for appropriate target ranges for prosthetic heart valve replacement. Current interpretive data was last revised on 2019. Blood 07/29/2024 11:0 1 AM GAS TURBINE ASSEMBLER 07/29/2024 11:32 AM GAS TURBINE ASSEMBLER Narrative [facility] - 07/29/2024 11:42 AM GAS TURBINE ASSEMBLER This lab is being obtained as part of a Kidney transplant evaluation, is time sensitive, and should only be drawn during the evaluation visit at [address]. Jossie King MD LAB BLOOD ORDERABL ES Final Result Performing Organization Address [facility] de Phone Number [facility] [place] [address] * Varicella Zoster IgG antibody Blood (07/29/2024 11:01 AM GAS TURBINE ASSEMBLER) Pathologist [facility] VZV IgG Reactive Reactive Comment:Reactive: Results diego ggest response to immunization or prior exposure to the virus. Blood 07/29/2024 11:0 1 AM GAS TURBINE ASSEMBLER 07/29/2024 11:33 AM GAS TURBINE ASSEMBLER Narrative [facility] 07/29/2024 1:45 PM GAS TURBINE ASSEMBLER This lab is being obtained as part of a Kidney transplant evaluation, is time sensitive, and should only be drawn during the evaluation visit at [address] Jossie King MD LAB MICROBIOLOGY - GENERAL ORDERABLES Final Result Performing Organization Address [facility] de Phone Number [facility] [place] [address] * (ABNORMAL) Uric acid (07/29/2024 11:01 AM GAS TURBINE ASSEMBLER) Pathologist [facility] Uric acid 2.0(L) 3.0 - 8.0 mg/dL Blood 07/29/2024 11:0 1 AM GAS TURBINE ASSEMBLER 07/29/2024 11:33 AM GAS TURBINE ASSEMBLER Narrative [facility] 07/29/2024 12:10 PM GAS TURBINE ASSEMBLER This lab is being obtained as part of a Kidney transplant evaluation, is time sensitive, and should only be drawn during the evaluation visit at [address]. Jossie King MD LAB BLOOD ORDERABL ES Final Result Performing Organization Address City/[facility] Co de Phone Number [facility] [place] [address] * (ABNORMAL) Phosphorus (07/29/2024 11:01 AM GAS TURBINE ASSEMBLER) [facility] Phosphorus, pl 5.1(H) 2.3 - 4.5 mg/dL Blood 07/29/2024 11:0 1 AM GAS TURBINE ASSEMBLER 07/29/2024 11:33 AM GAS TURBINE ASSEMBLER Narrative [facility] - 07/29/2024 12:10 PM GAS TURBINE ASSEMBLER This lab is being obtained as part of a Kidney transplant evaluation, is time sensitive, and should only be drawn during the evaluation visit at [address]. Jossie King MD LAB BLOOD ORDERABL ES Final Result Performing Organization Address [facility] de Phone Number [facility] [place] [address] * (ABNORMAL) PTH (07/29/2024 11:01 AM GAS TURBINE ASSEMBLER) [facility] PTH 444(H) 15 - 65 pg/mL Blood 07/29/2024 11:0 1 AM GAS TURBINE ASSEMBLER 07/29/2024 11:34 AM GAS TURBINE ASSEMBLER Narrative [facility] - 07/29/2024 12:02 PM GAS TURBINE ASSEMBLER This lab is being obtained as part of a Kidney transplant evaluation, is time sensitive, and should only be drawn during the evaluation visit at [address]. Jossie King MD LAB BLOOD ORDERABL ES Final Result Performing Organization Address City/[facility] Co de Phone Number [facility] [place] [address] * (ABNORMAL) Hemoglobin A1c (07/29/2024 11:01 AM GAS TURBINE ASSEMBLER) [facility] Hgb A1C 9.0(H) 4.0 - 5.6 % [...] fasting glucose. Blood 07/29/2024 11:0 1 AM GAS TURBINE ASSEMBLER 07/29/2024 11:34 AM GAS TURBINE ASSEMBLER Narrative [facility] - 07/29/2024 11:53 AM GAS TURBINE ASSEMBLER This lab is being obtained as part of a Kidney transplant evaluation, is time sensitive, and should only be drawn during the evaluation visit at [address] Lab. [facility]niraj King MD LAB BLOOD ORDERABL ES Final Result Performing Organization Address City/[facility] Co de Phone Number [facility] [place] [address] * Gamma GT (07/29/2024 11:01 AM GAS TURBINE ASSEMBLER) [facility] GGT 22 10 - 50 Units/L Blood 07/29/2024 11:0 1 AM GAS TURBINE ASSEMBLER 07/29/2024 11:33 AM GAS TURBINE ASSEMBLER Narrative [facility] - 07/29/2024 12:40 PM GAS TURBINE ASSEMBLER This lab is being obtained as part of a Kidney transplant evaluation, is time sensitive, and should only be drawn during the evaluation visit at [address] STRE[address] Lab. [facility]niraj King MD LAB BLOOD ORDERABL ES Final Result Performing Organization Address City/[facility] Co de Phone Number [facility] [place] [address] * (ABNORMAL) Ferritin (07/29/2024 11:01 AM GAS TURBINE ASSEMBLER) [facility] Ferritin 761(H) 30 - 400 ng/mL Blood 07/29/2024 11:0 1 AM GAS TURBINE ASSEMBLER 07/29/2024 11:33 AM GAS TURBINE ASSEMBLER Narrative [facility] - 07/29/2024 12:10 PM GAS TURBINE ASSEMBLER This lab is being obtained as part of a Kidney transplant evaluation, is time sensitive, and should only be drawn during the evaluation visit at [facility] Lab. us Jossie King MD LAB BLOOD ORDERABL ES Final Result [facility] One [facility] [place] [address] * (ABNORMAL) Lipid panel (07/29/2024 11:01 AM GAS TURBINE ASSEMBLER) Cholesterol 114 30 - 199 mg/dL Comment: [...] revised on 2018. Triglycerides 66 <=149 mg/dL [facility] [...] revised on 2018. HDL 29(L) >=40 mg/dL [facility] [...] on 2018. LDL, calculated 71 <=129 mg/dL [facility] [...] 2. NCEP Expert Panel. Circulation 2004;110:227 3. Garcia M et al. TYRONE Cardiol. 2020 December [...] [facility] Blood 07/29/2024 11:0 1 AM GAS TURBINE ASSEMBLER 07/29/2024 11:33 AM GAS TURBINE ASSEMBLER Narrative [facility] - 07/29/2024 12:10 PM GAS TURBINE ASSEMBLER This lab is being obtained as part of a Kidney transplant evaluation, is time sensitive, and should only be drawn during the evaluation visit at [facility] Lab. us Jossie King MD LAB BLOOD ORDERABL ES Final Result [facility] Department [place] [address] * (ABNORMAL) Comprehensive metabolic panel (07/29/2024 11:01 AM GAS TURBINE ASSEMBLER) Sodium 136 135 - 145 mmol/L Potassium, [...] [facility] Blood 07/29/2024 11:0 1 AM GAS TURBINE ASSEMBLER 07/29/2024 11:33 AM GAS TURBINE ASSEMBLER Narrative [facility] - 07/29/2024 12:10 PM GAS TURBINE ASSEMBLER This lab is being obtained as part of a Kidney transplant evaluation, is time sensitive, and should only be drawn during the evaluation visit at [facility] Lab. us Jossie King MD LAB BLOOD ORDERABL ES Final Result [facility] Department [place] [address] * (ABNORMAL) Oxalate (oxalic acid) (07/29/2024 10:53 AM GAS TURBINE ASSEMBLER) Oxalate 12.3(H) <=2.0 mcmol/L [place] [facility] Comment: High value suggestive of Primary Hyperoxaluria. However, if the patient has chronic kidney disease (GFR<30 mL/min/1.73m2), plasma oxalate values up to 30 mcmol/L can be normal. The [facility] is available to review case details and answer any questions regarding interpretation ([email or web address]; [phone]) ADDITIONAL INFORMATION This test has been modified from the rn progressive care unit's instructions. Its performance characteristics were determined by [facility] in a manner consistent with CLIA requirements. This test has not been cleared or approved by the U.S. Food and Drug Administration. Test Performed by: [facility] [place] [address] Director Of Retail Analytics: Jairo Higgins Ph.D.; CLIA# [id number] Blood 07/29/2024 10:5 3 AM GAS TURBINE ASSEMBLER 07/29/2024 11:37 AM GAS TURBINE ASSEMBLER us Jossie King MD LAB BLOOD ORDERABL ES Final Result [facility] [place] [address] [place] [facility] * (ABNORMAL) Urinalysis reflex to microscopic (07/29/2024 10:53 AM GAS TURBINE ASSEMBLER) Color, ur Yellow Yellow Clarity, ur Cloudy(A) Clear [facility] Specific gravity, ur 1.022 1.003 - 1.030 [facility] pH, urine 6.0 [facility] Comment: Interpretive Data ? Urine pH is affected by diet, medications, systemic acid-base disturbances, and renal tubular function. ??pH may affect urinary stone formation. ??For example, urine pH below 6.0 may help reduce the tendency for calcium phosphate stones and pH greater than 6.0 may reduce the tendency for uric acid stone formation. Source: [facility] Current Interpretive Data was last revised on 2017 Protein, ur ql 2+(A) Negative [facility] Glucose, ur ql 4+(A) Negative [facility] Ketones, ur Negative Negative [facility] Bilirubin, ur Negative Negative [facility] Blood, ur 3+(A) Negative [facility] Urobilinogen, ur <2.0 <2.0 mg/dL [facility] Nitrite, ur Negative Negative [facility] Leukocyte esterase, ur 2+(A) Negative [facility] UA reflex comment Reflex to microscopic UA will be performed. [facility] Urine 07/29/2024 10:5 3 AM GAS TURBINE ASSEMBLER 07/29/2024 11:27 AM GAS TURBINE ASSEMBLER Narrative [facility] - 07/29/2024 11:29 AM GAS TURBINE ASSEMBLER This lab is being obtained as part of a Kidney transplant evaluation, is time sensitive, and should only be drawn during the evaluation visit at [facility] Lab. Jossie King MD LAB URINE ORDERABL ES Final Result Performing Organization Address City/[facility] Co de Phone Number [facility] [place] [address] * (ABNORMAL) Urinalysis, microscopic only (07/29/2024 10:53 AM GAS TURBINE ASSEMBLER) WBC, ur 21-50(A) 0 - 5 /HPF [...] [facility] Urine 07/29/2024 10:5 3 AM GAS TURBINE ASSEMBLER 07/29/2024 11:27 AM GAS TURBINE ASSEMBLER Jossie King MD LAB URINE ORDERABL ES Final Result Performing Organization Address [facility]/ZIP Co de Phone Number [facility] [place] [address] * Cardiology Document Scan (06/07/2024 11:10 AM CDT) Anatomical Region Laterality Modality Other us Karen Barnes NP CV CARDIAC SERVICES PROCEDUR ES Final Result * (ABNORMAL) TSH (10/27/2023 2:30 AM GAS TURBINE ASSEMBLER) Thyroid Stimulating Hormone 13.20(H) 0.30 - 4.20 mcIUnit/mL Blood 10/27/2023 2:30 AM GAS TURBINE ASSEMBLER 10/27/2023 2:42 AM GAS TURBINE ASSEMBLER us Lorne Mcnulty MD LAB BLOOD ORDERABLES Final Result [facility] [address] [place] [address] from Last 3 Months or Most Recently Relevant to Health Maintenance Insurance [facility] MEDIC[facility] Address: [address] [address] [place] [address] [employer] MED[employer]ARE [facility] Address: [address] [address] [place] [address] TRANSPLANT [employer] MEDICARE RISK [employer] RISK [employer] Advance Directives For more information, please contact: [phone] * Full Code (Latest Code Status on File) Date Activated Date Inactivated Comments 10/13/2023 11:32 PM 11/03/2023 11:42 PM * Full Code Date Activated Date Inactivated Comments 06/05/2022 6:17 AM 06/29/2022 6:20 PM * Full Code Date Activated Date Inactivated Comments 06/05/2022 4:43 AM 06/05/2022 4:43 AM * Full Code Date Activated Date Inactivated Comments 06/04/2022 9:55 PM 06/05/2022 4:43 AM Care Teams Fireboat 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
--- OUTSIDE RECORDS SUMMARY | 2024-09-07 19:10 | XMS_ITS | Encounter Summary ---
Author Organization [facility] Address [address] [place] [address] Care Team Providers Care Microelectronics Assembler Name Role Phone Jhonatan Bellamy MD Primary Care Provider Encounter Details Date Type Department Care Team (Late st Contact Info) Description 07/24/2017 Orders Only [facility] Oncology and Hematology - [place] [address] [id number] Tanna Costa, RN Anemia of chronic renal [...] * (ABNORMAL) CBC WITH DIFFERENTIAL (07/24/2017) Blood us Fernando Schmid MD HEMATOLOGY ORDERABLES Final Res ult EXTERNAL LAB documented in this encounter Visit Diagnoses Diagnosis Anemia of chronic renal failure, stage 4 (severe) documented in this encounter Care Teams Microelectronics Assembler Relationship Specialty Start Date End Date Jhonatan Bellamy MD [address] [place] [id number] PCP - General Family Practice 06/05/17 09/10/18 documented as of this encounter
--- OUTSIDE RECORDS SUMMARY | 2024-09-07 19:10 | XMS_ITS | Encounter Summary ---
Author Organization [facility] Address [address] [place] [address] Care Team Providers Care Collection Technician Name Role Phone Jhonatan Bellamy MD Primary Care Provider [phone] Reason for Referral * Outpatient Services (Routine) - Closed Specialty Diagnoses / Procedures Referred By Aguilar lora Referred To Contact Diagnoses Acute deep vein thrombosis (DVT) of distal end of right lower extremity Procedures US VENOUS DOPPLER LEG RIGHT Fernando Schmid MD [address] [place] [address] Phone: tel: fax: Referral ID Status Reason Start Date Expiration Date Visits Requested Visits Authorized [id number] Closed Ordering Department To Schedule 07/10/2017 08/10/2018 1 1 TER HELPER SPRAY * Eval and Treat (Routine) - Closed Specialty Diagnoses / Procedures Referred By Aguilar lora Referred To Contact Pulmonology Diagnoses Sleep apnea in adult Fernando Schmid MD [address] [place] [address] Phone: tel: fax: Carla Hall MD [address] [facility] [address] [place] [address] Phone: tel: fax: Referral ID Status Reason Start Date Expiration Date V isits Requested Visits Authorized [id number] Closed CRS To Schedule (STL) 07/10/2017 07/10/2018 1 1 TER HELPER SPRAY Reason for Visit * Reason Comments Follow Up Encounter Details Date Type Department Care Team (Late st Contact Info) Description 07/10/2017 1:00 PM PAINTER HELPER SPRAY Office Visit [facility] Oncology and Hematology - [place] [address] [facility] [address] [place] [address] Fernando Schmid MD [address] [facility] [address] [place] [address] History of anemia due to [...] Comments Blood Pressure 143/63 07/10/2017 1:05 PM PAINTER HELPER SPRAY Pulse 69 07/10/2017 1:05 PM PAINTER HELPER SPRAY Temperature 36.8 ??C (98.2 ??F) 07/10/2017 1:05 PM CS T Respiratory Rate 16 07/10/2017 1:05 PM PAINTER HELPER SPRAY Oxygen Saturation - - Inhaled Oxygen Concentration - - Weight 115.1 kg (253 lb 11.2 oz) 07/10/2017 1:05 PM PAINTER HELPER SPRAY Height 177.8 cm (5' 10 ) 07/10/2017 1:05 PM PAINTER HELPER SPRAY Body Mass Index 36.4 07/10/2017 1:05 PM PAINTER HELPER SPRAY documented in this encounter Progress Notes * [...] this with his primary care physician and attending psychiatrist. ? 07/10/2017 Fernando Schmid MD TER HELPER SPRAY documented in this encounter Plan of Treatment [...] Fernando Schmid MD US ORDERABLES Final Result * (ABNORMAL) CBC WITH DIFFERENTIAL (08/25/2017) Blood us Fernando Schmid MD HEMATOLOGY ORDERABLES Final Res ult EXTERNAL LAB documented in this encounter Visit Diagnoses Diagnosis History of anemia due to chronic kidney disease- Primary Sleep apnea in adult Acute deep vein thrombosis (DVT) of distal end of right lower extremity documented in this encounter Care Teams Collection Technician Relationship Specialty Start Date End Date Jhonatan Bellamy MD [address] [place] [address] PCP - General Family Practice 06/05/17 09/10/18 documented as of this encounter
--- OUTSIDE RECORDS SUMMARY | 2024-09-07 19:11 | XMS_ITS | Encounter Summary ---
Author Organization [facility] Healthcare Address [address] [place] [address] Care Team Providers Care Batch Operator Name Role Phone Aditya Castro MD Primary Care Provider [phone] Alondra Lambert RN Unavailable [phone] Shannon Brock MD, Hamlet P. Unavailable [phone] Reason for Referral * Cardiology (Routine) - Pending Review Specialty Diagnoses / Procedures Referred By Contac t Referred To Contact Diagnoses End stage renal disease (CMS/HCC) (HCC) Procedures ECG 12 lead Jossie King MD [address] [place] [address] Phone: tel: fax: [facility] 1 [place] [address] Referral ID Status Reason Start Date Expiration Date V isits Requested Visits Authorized [id number] Pending Review 05/10/2024 06/09/2025 1 1 LTY NEUROPSYCHOLOGIST Reason for Visit * Cardiology (Routine) - Pending Review Specialty Diagnoses / Procedures Referred By Contac t Referred To Contact Diagnoses End stage renal disease (CMS/HCC) (HCC) Procedures ECG 12 lead Jossie King MD [address] [place] [address] Phone: tel: fax: [facility] 1 [facility] [place] [address] Referral ID Status Reason Start Date Expiration Date V isits Requested Visits Authorized [id number] Pending Review 05/10/2024 06/09/2025 1 1 Encounter Details Date Type Department Care Team (Latest Contact Info) Description 07/29/2024 10:53 AM FACULTY NEUROPSYCHOLOGIST - 07/29/2024 11:59 PM FACULTY NEUROPSYCHOLOGIST Hospital Encounter [facility] [address] [place] [address] End stage renal disease (CMS/HCC) (HCC) Discharge [...] materials from doctor or pharmacy Never 12/01/2023 [facility] Utilities Answer Date Recorded In the past 12 months has e [employer], gas, oil, or water [employer] threatened to shut off services in your [...] any clubs o r organizations such as bahai groups, unions, fraternal or athletic groups, or [...] on file Legal Sex Male 3:42 AM FACULTY NEUROPSYCHOLOGIST Gender Identity Not on file Sexual Orientation [...] PUMP: Continue Omnipod 5 insulin pump with Marqeta G6 CGM at home settings: TIME BASAL [...] 1 tablet (25 mcg total) by mouth patternmaker helper before breakfast 30 tablet 1 11/04/2023 Linzess [...] (20 mg total) by mouth daily peg [id number]-oxg cerin (ARTIFICAL TEARS) 1-0.2-0.2 % ophthalmic solution [...] 500 mg tablet warfarin (COUMADIN) 2 mg tabletIndications:Ut chanical Valve Thromboembolism Prophylaxis Take 4 mg [...] Comments ECG 12-LEAD Routine 07/29/2024 11:14 AM FACULTY NEUROPSYCHOLOGIST End stage renal disease (CMS/HCC) (HCC) documented in this encounter Results * ECG 12 lead (07/29/2024 11:14 AM [facility]) Ventricular Rate EKG/Min [address] [facility] Atrial Rate 117 BPM [facility] IN-Interval (MSEC) 144 ms [facility] QRS-Interval (MSEC) 126 ms [facility] QT-Interval (MSEC) 366 ms [facility] QTc 510 ms [facility] R [place] -40 degrees [facility] T [place] 147 degrees [facility] Diagnosis Poor data quality, interpretation may be [...] SAL M.D ([id number]) on 07/29/2024 3:38:[address] [facility] 07/29/2024 11:1 4 AM FACULTY NEUROPSYCHOLOGIST 07/29/2024 3:38 PM FACULTY NEUROPSYCHOLOGIST Jossie King MD ECG ORDERABLES Fi nal Result [facility] documented in this encounter Visit Diagnoses Diagnosis End stage renal disease (CMS/HCC) (HCC) End stage renal disease documented in this encounter Care Teams Batch Operator Relationship Specialty Start Date End Date Aditya Castro MD [address] [facility] [address] [place] [address] PCP - General 10/17/19 Alondra Lambert, RN [address] [address] Hat Brusher Machine 03/06/24 Hamlet Ortega Jr., MD [address] [place] [address] Consulting Physician Cardiovascular Disease 05/10/24 documented as of this encounter
--- OUTSIDE RECORDS SUMMARY | 2024-09-07 19:11 | XMS_ITS | Encounter Summary ---
Author Organization [facility] Healthcare Address [address] [place] [address] Care Team Providers Care Substation Operator Helper Generation Name Role Phone Aditya Castro MD Primary Care Provider [phone] Alondra Lambert RN Unavailable [phone] Shannon Brock MD, Hamlet Gordillo. Unavailable [phone] Reason for Referral * Diagnostic Imaging (Routine) - Pending Review Specialty Diagnoses / Procedures Referred By Contac t Referred To Contact Diagnoses End stage renal disease (CMS/HCC) (HCC) Procedures XR Orthopantogram Panorex Jossie King MD [address] [place] [address] Phone: tel: fax: [facility] 1 [place] [address] Referral ID Status Reason Start Date Expiration Date V isits Requested Visits Authorized [id number] Pending Review 05/10/2024 06/09/2025 1 1 ENSATION CONSULTING MANAGER Reason for Visit * Diagnostic Imaging (Routine) - Pending Review Specialty Diagnoses / Procedures Referred By Contac t Referred To Contact Diagnoses End stage renal disease (CMS/HCC) (HCC) Procedures XR Orthopantogram Panorex Jossie King MD [address] [place] [address] Phone: tel: fax: [facility] [address] [facility] [place] [address] Referral ID Status Reason Start Date Expiration Date V isits Requested Visits Authorized [id number] Pending Review 05/10/2024 06/09/2025 1 1 Encounter Details Date Type Department Care Team (Latest Contact Info) Description 07/29/2024 10:55 AM COMPENSATION CONSULTING MANAGER - 07/29/2024 11:59 PM COMPENSATION CONSULTING MANAGER Hospital Encounter [facility] [address] [place] [address] End stage renal disease (CMS/HCC) (HCC) Discharge [...] materials from doctor or pharmacy Never 12/01/2023 [facility] Utilities Answer Date Recorded In the past [address], gas, oil, or water [employer] threatened to shut off services in your [...] How often do you attend chur or baptist services? 1 to 4 times per year 10/16/2023 Do you belong to any clubs o r organizations such as uatsdin groups, unions, fraternal or athletic groups, or [...] on file Legal Sex Male 3:42 AM COMPENSATION CONSULTING MANAGER Gender Identity Not on file Sexual [...] PUMP: Continue Omnipod 5 insulin pump with [employer] [place] G6 CGM at home settings: TIME BASAL [...] (25 mcg total) by mouth early childhood education coordinator before breakfast 30 tablet 1 11/04/2023 Linzess [...] (20 mg total) by mouth daily peg [id number]-gmnecifbpnmj-yga cerin (ARTIFICAL TEARS) 1-0.2-0.2 % ophthalmic solution [...] 500 mg tablet warfarin (COUMADIN) 2 mg tabletIndications:Mn chanical Valve Thromboembolism Prophylaxis Take 4 mg [...] Read Routine (OP Routine) 07/29/2024 11:44 AM COMPENSATION CONSULTING MANAGER End stage renal disease (CMS/[facility]) ([facility]) documented in this encounter Results * XR Orthopantogram Panorex (07/29/2024 11:44 AM COMPENSATION CONSULTING MANAGER) Anatomical Region Laterality Modality Head and Neck N/A Panoramic X-Ray 07/29/2024 12:5 9 PM COMPENSATION CONSULTING MANAGER Impressions 07/29/2024 12:59 PM COMPENSATION CONSULTING MANAGER 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 Electronically signed by: Julio Pinedo M.D. Narrative 07/29/2024 12:59 PM COMPENSATION CONSULTING MANAGER EXAMINATION: XR ORTHOPANTOGRAM/PANOREX HISTORY: Kidney Transplant Evaluation [...] disease documented in this encounter Care Teams Substation Operator Helper Generation Relationship Specialty Start Date End Date Aditya Castro MD [address] [place] [address] PCP - General 10/17/19 Alondra Lambert, RN [address] [facility] [address] [place] [address] Brush Maker 03/06/24 Hamlet Ortega Jr., MD [address] [place] [address] Consulting Physician Cardiovascular Disease 05/10/24 documented as of this encounter
--- OUTSIDE RECORDS SUMMARY | 2024-09-07 19:11 | XMS_ITS | Encounter Summary ---
Author Organization [facility] Healthcare Address [address] [place] [address] Care Team Providers Care Repairer Recreational Vehicle Name Role Phone Aditya Castro MD Primary Care Provider [phone] Alondra Lambert RN Unavailable [phone] Shannon Brock MD, Hamlet P. Unavailable [phone] Leandro Reyes MD Unavailable [phone] Encounter Details Date Type Department Care Team (Late st Contact Info) Description 07/30/2024 Telephone [facility] Transplant Kidney [address] [facility] [address] [phone] [place] [address] Alondra Lambert RN [address] [facility] [address] [place] [id number] Social History Tobacco Use Types Packs/Day Years [...] materials from doctor or pharmacy Never 12/01/2023 [facility] Utilities Answer Date Recorded In [...] on file Legal Sex Male 3:42 AM LEADERSHIP DEVELOPMENT CONSULTANT Gender Identity Not on file Sexual [...] and asked who managed his Coumadin. His air cargo ground crew supervisor takes care of this. Willmail out letter today summarizing remaining things needed to complete evaluation. Called and spoke with nurse at dialysis center. Mentioned that we felt he was in volume overload. Read the CT report to her. Will discuss this with nephrology. ERSHIP DEVELOPMENT CONSULTANT documented in this encounter Plan of Treatment Not on file documented as of this encounter Visit Diagnoses Not on filedocumented in this encounter Care Teams Repairer Recreational Vehicle Relationship Specialty Start Date End Date Aditya Castro MD [address] [facility] [place] [address] PCP - General 10/17/19 Alondra Lambert RN [address] [address] Hair Blender 03/06/24 Hamlet Ortega Jr., MD [address] [place] [address] Consulting Physician Cardiovascular Disease 05/10/24 Leandro Reyes MD [facility] [place] [address] Consulting Physician Nephrology 07/30/24 documented as of this encounter
--- OUTSIDE RECORDS SUMMARY | 2024-09-07 19:11 | XMS_ITS | Referral Summary ---
Author Organization [facility] Address [address] [place] [address] Care Team Providers Care Steamfitter Supervisor Name Role Phone Aidtya Castro MD Primary Care Provider [phone] Alondra Lambert RN Unavailable [phone] Shannon Brock MD, Ham[place] P. Unavailable [phone] Leandro Reyes MD Unavailable [phone] Encounters Date Type Department Care Team Description 08/06/2024 Documentation [facility] [address] [facility] [address] [place] [address] [phone] [place] [address] Alondra Lambert RN 07/30/2024 Telephone [facility] [address] [facility] [address] [place], [place] [address] [phone] [place] [address] Alondra Lambert RN 07/29/2024 10:55 AM FLESHING MACHINE OPERATOR - 07/29/2024 11:59 PM FLESHING MACHINE OPERATOR Hospital Encounter [facility] [address] [place] [address] End stage renal disease (CMS/HCC) (HCC) Discharge Disposition: Discharge to home or self care 07/29/2024 10:53 AM FLESHING MACHINE OPERATOR - 07/29/2024 11:59 PM FLESHING MACHINE OPERATOR Hospital Encounter [facility] ([facility]) [address] [place] [address] End stage renal disease (CMS/HCC) ([facility]) Discharge Disposition: Discharge to home or self care 07/29/2024 1:15 PM FLESHING MACHINE OPERATOR Lab [facility] [address] [place] [address] End stage renal disease (CMS/HCC) (HCC); ESRD (end stage renal disease) (CMS/HCC) (HCC) 07/29/2024 Telephone [facility] [address] [facility] [address] Mailstop [phone] [place] [address] Alondra Lambert RN 07/29/2024 10:58 AM FLESHING MACHINE OPERATOR - 07/29/2024 11:59 PM FLESHING MACHINE OPERATOR Hospital Encounter [facility] ([facility]) [address] [place] [address] End stage renal disease ([facility]) ([facility]) Discharge Disposition: Discharge to home or self care 07/29/2024 9:00 AM FLESHING MACHINE OPERATOR Social Work [facility] [address] [facility], 8th [address], [place] [address] 07/29/2024 11:02 AM FLESHING MACHINE OPERATOR - 07/29/2024 11:59 PM FLESHING MACHINE OPERATOR Hospital Encounter [facility] [address] [facility] [address] [place] [address] Discharge Disposition: Discharge to home or self care 07/29/2024 1:00 PM FLESHING MACHINE OPERATOR Office Visit [facility] [address] [facility] 5th [place] [address] [place] [id number] Radha Bartholomew MD Pre-transplant evaluation for kidney transplant (Primary Dx); End stage renal disease (CMS/HCC) ([facility]); Status post coronary artery bypass grafting; Status post aortic valve replacement; Type 1 diabetes mellitus with chronic kidney disease on chronic dialysis (CMS/HCC) ([facility]); CAD in [place] artery; Paroxysmal atrial fibrillation (CMS/HCC) (HCC) 07/26/2024 Telephone [facility] [address] [facility] [address] Mailstop [phone] [place] [address] Hollyjessica Elsie 07/26/2024 Orders Only [facility] [address] [facility] [address] Mailstop [phone] [place] [address] Alondra Lambert, RN ESRD (end stage renal disease) (CMS/HCC) (HCC) (Primary Dx) 07/26/2024 Telephone [facility] [address] [facility] [address] Mailstop [phone] [place] [address] Alondra Lambert RN 07/22/2024 Telephone [facility] [address] [address] Mailstop [phone] [place] [address] Chris Richard 06/28/2024 Telephone [facility] [address] [address] Mailstop [phone] [place] [address] Chris Richard 06/24/2024 Telephone [facility] [address] [facility] [address] Mailstop [phone] [place] [address] Chris Richard 06/11/2024 Orders Only [facility] Cardiology [address] [place] [address] Karen Barnes NP from Last 3 Months Allergies Active Allergy [...] Ultra-Fine Short Pen Needle) 31 gauge x /16 needle 01/31/20 18 Active aspirin 81 mg [...] PUMP: Continue Omnipod 5 insulin pump with License Buddy G6 CGM at home settings: TIME BASAL [...] 1 tablet (25 mcg total) by mouth employee relations advisor before breakfast 30 tablet 1 11/04/19 24 [...] mg SL tablet 12/28/19 18 Active peg 813-dloegudamuwa-he ycerin (ARTIFICAL TEARS) 1-0.2-0.2 % ophthalmic solution 1 drop 4 (four) times a day 07/07/20 22 Active potassium chloride ER 20 mEq CR tablet Active Active Problems Problem Noted Date Diagnosed Date End stage renal disease ([facility]) 07/29/2024 Nonrheumatic aortic valve stenosis 11/22/2023 Status post aortic valve replacement 11/22/2023 Status post coronary artery bypass grafting 10/2023 CAD in [place] artery 10/13/2023 Anemia 06/22/2022 Assessment & Plan (06/29/2022 10:12 AM FLESHING MACHINE OPERATOR): Stable, likely 2/2 anemia from ESRD, no [...] trend Hb. ESRD (end stage renal disease) ([facility]) 022 Assessment & Plan (06/29/2022 10:12 AM FLESHING MACHINE OPERATOR): - Renal consulted, s/p CRRT in the ICU now back on PD. Tolerated well and nephrology following - Trialysis catheter removed - Continue vitamins for renal bone mineral disease. Assessment & Plan (06/28/2022 3:29 PM FLESHING MACHINE OPERATOR): - Renal consulted, s/p CRRT in the [...] 06/22/2022 Assessment & Plan (06/29/2022 10:12 AM FLESHING MACHINE OPERATOR): C/b cardiogenic shock requiring impella in the setting of cath and AHRF 2/2 pulmonary edema, now resolved. TTE demonstrating recovered EF 65% with grade I diastolic dysfunction. - metop as above - continue low dose losartan 12.5mg daily, ok per nephro. Tolerating well - volume management per PD Assessment & Plan (06/28/2022 3:29 PM FLESHING MACHINE OPERATOR): C/b cardiogenic shock requiring impella in the [...] tartrate, start GDMT per cardiology. Atrial fibrillation ([facility]) 06/22/2022 Assessment & Plan (06/29/2022 10:12 AM FLESHING MACHINE OPERATOR): Converted to NSR overnight on 06/24. CHADsVASc of 4 not on anticoagulation prior to admission. - cardiology consulted - recommended ongoing rate control - holding off on a/c with high risk for bleeding while on DAPT - reduced metop to 25mg BID in the setting of hypotension, HR 70s NSR Assessment & Plan (06/28/2022 3:30 PM FLESHING MACHINE OPERATOR): Converted to NSR overnight on 06/24. CHADsVASc [...] AC. NSTEMI (non-ST elevated myocardial infarction) ( [facility]) 06/22/2022 Assessment & Plan (06/29/2022 10:11 AM FLESHING MACHINE OPERATOR): With recurrent chest pain post-cath. He has [...] today Assessment & Plan (06/28/2022 3:30 PM FLESHING MACHINE OPERATOR): With recurrent chest pain post-cath. He has [...] 06/22/2022 Assessment & Plan (06/29/2022 10:11 AM FLESHING MACHINE OPERATOR): Secondary to NSTEMI, s/p Impella since removed on 06/10. Resolved. Assessment & Plan (06/23/2022 4:55 PM CDT): Secondary to NSTEMI, s/p Impella since removed on 06/10. Resolved. Assessment & Plan (06/22/2022 8:22 PM CDT): -Secondary to NSTEMI, s/p Impella since removed on 06/10. Acute hypoxemic respiratory failure 06/09/2022 Assessment & Plan (06/29/2022 10:12 AM FLESHING MACHINE OPERATOR): Secondary to ACS and flash pulmonary edema, [...] (06/10/2022): Added automatically from request for surgery [id number] Abnormal cardiovascular stress test 12/29/2020 Overview (12/29/2020): Added automatically from request for surgery [id number] 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n ative artery of [place] heart with stable angina pectoris ([facility]) 05/23/2017 History of coronary artery stent placement 05/23 Macular ischemia 03/17/2017 Combined forms of age-related cataract 7 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 03/17/2017 Type 2 diabetes mellitus treated with insulin ([facility]) 03/25/2015 Overview (11/25/2016): Insulin treated Type II diabetes mellitus Chronic kidney disease, stage III (moderate) 12/2014 Overview (11/25/2016): Chronic kidney disease, stage 3 Benign essential hypertension 03/25/2015 Overview (11/25/2016): Benign essential HTN Hyperlipidemia 03/25/2015 Overview (11/25/2016): Hyperlipidemia Pain of finger 11/24/2014 Hypersomnia 11/22/2013 Chronic kidney disease 11/22/2013 Hypertension 01/18/2013 Type 1 diabetes mellitus 01/18/2013 Assessment & Plan (06/29/2022 10:12 AM FLESHING MACHINE OPERATOR): A1c well controlled on admission. He uses [...] session Assessment & Plan (06/28/2022 3:28 PM FLESHING MACHINE OPERATOR): A1c well controlled on admission. He uses [...] materials from doctor or pharmacy Never 12/01/2023 [facility] Utilities Answer Date Recorded In the past 12 months has th e [employer], gas, oil, or water company threatened to [...] week 08/01/2024 How often do you attend mormon or tenriism serv ices? Never 08/01/2024 Do you belong to any clubs o r organizations such as mormon groups, unions, fraternal or athletic groups, or [...] any time in the past 12 m [facility], were you homeless or living in a skilled nursing (including now)? No 08/01/2024 Personal Safety Answer Date Recorded Have you ever been in or are you currently in a harmful physical or emotional relationship or is someone making you feel afraid or unsafe? 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 Male 3:42 AM FLESHING MACHINE OPERATOR Gender Identity Not on file Sexual Orientation Not on file Last Filed Vital Signs Vital Sign Reading Time Taken Comments Blood Pressure 122/75 07/29/2024 1:00 PM FLESHING MACHINE OPERATOR Pulse 116 07/29/2024 1:00 PM FLESHING MACHINE OPERATOR Temperature 36.8 ??C (98.2 ??F) 07/29/2024 1:00 PM CS T Respiratory Rate 16 12/01/2023 11:1 3 AM CDT Oxygen Saturation 96% 12/01/2023 11: 13 AM CDT Inhaled Oxygen Concentration - - Weight 121.2 kg (267 lb 1.6 oz) 07/29/2024 1:00 PM FLESHING MACHINE OPERATOR Height 177.8 cm (5' 10 ) 07/29/2024 1:00 PM FLESHING MACHINE OPERATOR Body Mass Index 38.32 07/29/2024 1:00 PM FLESHING MACHINE OPERATOR Plan of Treatment Not on file Medical Devices Implanted Type Area Clock And Watch Hands Dipper Device Identifier Shelf Expiration Date Model / Serial / Lot Kyle Vascular Device Clsr Perclose Prostyle Sut-Mediatd Closure-Repair Sys 10708-88 - [id number] Implanted:Qty: 1 on 06/10/2022 by Champ Osborne MD PhD at [facility] Other - see comments Right: Femoral [employer] 01/19/2024 [id number] / / [id number] [employer] Mary Synergy Xd Monorail 2.5mm 48mm 144cm Delivery System 1 Access [id number] - [id number] Implanted:Qty: 1 on 06/07/2022 by Champ Osborne MD PhD at [facility] Stent [employer] Mary 10/27/2023 [id number] / / [id number] [employer] Mary Synergy Xd Monorail 3mm 24mm 144cm Delivery System 1 Access Port [id number] - [id number] Implanted:Qty: 1 on 06/07/2022 by Champ Osborne MD PhD at [facility] Stent [employer] Mary 07/28/2023 [id number] / / [id number] [employer] Mary Synergy Xd Monorail 2.5mm 12mm 144cm Delivery System 1 Access [id number] - [id number] Implanted:Qty: 1 on 06/07/2022 by Champ Osborne MD PhD at [facility] Stent [employer] Mary 05/03/2023 [id number] / [id number] / [id number] Dai Mary [id number] Device Closure Angio-Seal Vip Bondek-Plus Polyglyd L70 Cm Od6 Fr Odsec.035 In Vascular - [id number] Implanted:Qty: 1 on 01/21/2021 by Hamlet Ortega Jr., MD at [facility] Left: Groin [employer] Mary [id number] / / Kyle Vascular Device Clsr Perclose Prostyle Sut-Mediatd Closure-Repair Sys 45818-39 - [id number] Implanted:Qty: 1 on 06/07/2022 by Champ Osborne MD PhD at [facility] [employer] 01/19/202427497-45 / [id number] Kyle [employer] Device Clsr Perclose Prostyle Sut-Mediatd Closure-Repair Sys 05513-43 - [id number] Implanted:Qty: 1 on 06/07/2022 by Champ Osborne MD PhD at [facility] Kyle Vascular 11/19/202375828-15 / [id number] Bard Access Systems Power-Trialysis 13fr 30cm 3 Lumen Kink Resistance Symmetric Tip [id number] - [id number] Implanted:Qty: 1 on 06/07/2022 by Champ Osbrone MD PhD at [facility] Right: Jugular Ramirez [place] 07/20/2024 [id number] / / [id number] [employer] Impella Cp Percutaneous Left Ventricular Assist Device 1187-7336 - [id number] Implanted:Qty: 1 on 06/07/2022 by Champ Osborne MD PhD at [facility] Left: Ventricle [employer] [id number] / / Bard Access Systems Power-Trialysis 13fr 20cm 3 Lumen Short Term Dialysis Straight [id number] - [id number] Implanted:Qty: 1 on 06/18/2022 at [facility] Ramirez [place] 07/20/2024 [id number] / / [id number] Rl Biomet Inc Screw Bone Slf Drl Full Thread Locking 3.5x14mm Ti 100.035.14 - [id number] Implanted:Qty: 6 on 10/17/2023 by Lorne Mcnulty MD at [facility] N/A: Sternum [employer]l [employer] Inc 100.035.1 4 / / Rl Biomet Inc Plate Bone Low Profile 6 Hole H Shape Sternum Ti 115.102.06 - [id number] Implanted:Qty: 2 on 10/17/2023 by Lorne Mcnulty MD at [facility] N/A: Sternum Rl [employer] Inc 115.102.0 6 / / Rl [employer] Plate Bone Low Profile 6 Hole O Shape Sternum Ti 115.104.06 - [id number] Implanted:Qty: 1 on 10/17/2023 by Lorne Mcnulty MD at [facility] N/A: Sternum [employer]l [employer] 115.104.0 6 / / On-X Intrnl Valve Coronary Aortic Mechanical On X 25mm Onxane-25 - [id number] - [id number] Implanted:Qty: 1 on 10/17/2023 by Lorne Mcnulty MD at [facility] N/A: Heart On-X Intrnl 01/22/2028 ONXANE-25 / [id number] / Rl [employer] Inc Screw Bone Slf Drl Full Thread Locking 3.5x18mm Ti 100.035.18 - [id number] Implanted:Qty: 12 on 10/17/2023 by Lorne Mcnulty MD at [facility] N/A: Sternum Rl [employer] Inc 100.035.1 8 / / Explanted Type Area Clock And Watch Hands Dipper Device Identifier Shelf Expiration Date Model / Serial / Lot Bard Peripheral Vascular Bard .25x.25in [place] Thk1.65mm Square P[employer]get [employer]ovascular Ptfe [id number] - [id number] Explanted:Qty: 1 on 10/17/2023 by Lorne Mcnulty MD at [facility] N/A: Heart Bard Peripheral Vascular 05/18/2026 [id number] / / Procedures Procedure Name Priority Date/Time Associated Diagnosis Comments HLA SOLID ORGAN TYPING REPORT 08/02/2024 9:04 AM FLESHING MACHINE OPERATOR SIX MINUTE WALK Routine 07/29/2024 2:46 PM FLESHING MACHINE OPERATOR End stage renal disease (CMS/HCC) (HCC) CT ABDOMEN PELVIS WO CONTRAST Schedule Routine, Read Routine (OP Routine) 07/29/2024 12:43 PM FLESHING MACHINE OPERATOR End stage renal disease (CMS/HCC) (HCC) XR ORTHOPANTOGRAM/PANOR EX Schedule Routine, Read Routine (OP Routine) 07/29/2024 11:44 AM FLESHING MACHINE OPERATOR End stage renal disease (CMS/HCC) (HCC) TYPE AND SCREEN Routine 07/29/2024 11:23 AM FLESHING MACHINE OPERATOR End stage renal disease (CMS/HCC) (HCC) ECG 12-LEAD Routine 07/29/2024 11:14 AM FLESHING MACHINE OPERATOR End stage renal disease (CMS/HCC) (HCC) ABO/RH Routine 07/29/2024 11:13 AM FLESHING MACHINE OPERATOR EGFR Routine 07/29/2024 11:01 AM FLESHING MACHINE OPERATOR End stage renal disease (CMS/HCC) (HCC) DIFFERENTIAL AUTO Routine 07/29/2024 11: 01 AM FLESHING MACHINE OPERATOR End stage renal disease (CMS/HCC) (HCC) CBC WITH AUTO DIFFERENTIAL Routine 07/29/2024 11:01 AM FLESHING MACHINE OPERATOR End stage renal disease (CMS/HCC) (HCC) COMPREHENSIVE METABOLIC PANEL Routine 07/29/2024 11:01 AM FLESHING MACHINE OPERATOR End stage renal disease (CMS/HCC) (HCC) CREATININE, URINE, RANDOM Routine 07/29/2024 11:01 AM FLESHING MACHINE OPERATOR End stage renal disease (CMS/HCC) (HCC) FERRITIN Routine 07/29/2024 11:01 AM FLESHING MACHINE OPERATOR End stage renal disease (CMS/HCC) (HCC) GAMMA GT Routine 07/29/2024 11:01 AM FLESHING MACHINE OPERATOR End stage renal disease (CMS/HCC) (HCC) HEMOGLOBIN A1C Routine 07/29/2024 11:01 AM FLESHING MACHINE OPERATOR End stage renal disease (CMS/HCC) (HCC) IRON PROFILE W/ IBC Routine 07/29/2024 1 1:01 AM FLESHING MACHINE OPERATOR End stage renal disease (CMS/HCC) (HCC) LIPID PANEL Routine 07/29/2024 11:01 AM FLESHING MACHINE OPERATOR End stage renal disease (CMS/HCC) (HCC) PTH Routine 07/29/2024 11:01 AM FLESHING MACHINE OPERATOR End stage renal disease (CMS/HCC) (HCC) APTT Routine 07/29/2024 11:01 AM FLESHING MACHINE OPERATOR End stage renal disease (CMS/HCC) (HCC) PHOSPHORUS Routine 07/29/2024 11:01 AM FLESHING MACHINE OPERATOR End stage renal disease (CMS/HCC) (HCC) PROTEIN, URINE, RANDOM Routine 07/29/2024 11:01 AM FLESHING MACHINE OPERATOR End stage renal disease (CMS/HCC) (HCC) PROTIME-INR Routine 07/29/2024 11:01 AM FLESHING MACHINE OPERATOR End stage renal disease (CMS/HCC) (HCC) URIC ACID Routine 07/29/2024 11:01 AM FLESHING MACHINE OPERATOR End stage renal disease (CMS/HCC) (HCC) PSA SCREEN Routine 07/29/2024 11:01 AM FLESHING MACHINE OPERATOR End stage renal disease (CMS/HCC) (HCC) LR HLA TYPING (CLASS I AND CLASS II) Routine 07/29/2024 11:01 AM FLESHING MACHINE OPERATOR End stage renal disease (CMS/HCC) (HCC) HLA CLASS I DNA (ABC) RECIPIENT Routine 07/29/2024 11:01 AM FLESHING MACHINE OPERATOR End stage renal disease (CMS/HCC) (HCC) HLA CLASS II DNA (DR, DQ, DP) RECIPIENT Routine 07/29/2024 11:01 AM FLESHING MACHINE OPERATOR End stage renal disease (CMS/HCC) (HCC) HLA ANTIBODY SCREEN - SAB (CLASS I AND CLASS II) Routine 07/29/2024 11:01 AM FLESHING MACHINE OPERATOR End stage renal disease (CMS/HCC) (HCC) HLA ANTIBODY SCREEN BY SINGLE ANTIGEN Routine 07/29/2024 11:01 AM FLESHING MACHINE OPERATOR End stage renal disease (CMS/HCC) (HCC) CMV, IGG Routine 07/29/2024 11:01 AM FLESHING MACHINE OPERATOR End stage renal disease (CMS/HCC) (HCC) MADIHA-MORRIS VIRUS VCA ANTIBODY PANEL Routine 07/29/2024 11:01 AM FLESHING MACHINE OPERATOR End stage renal disease (CMS/HCC) (HCC) HIV 1/2 ANTIBODY PLUS P24 ANTIGEN Routine 07/29/2024 11:01 AM FLESHING MACHINE OPERATOR End stage renal disease (CMS/HCC) (HCC) HSV 1 ANTIBODY, IGG Routine 07/29/2024 1 1:01 AM FLESHING MACHINE OPERATOR End stage renal disease (CMS/HCC) (HCC) HSV 2 ANTIBODY, IGG Routine 07/29/2024 1 1:01 AM FLESHING MACHINE OPERATOR End stage renal disease (CMS/HCC) (HCC) HEPATITIS B CORE ANTIBODY, TOTAL Routine 07/29/2024 11:01 AM FLESHING MACHINE OPERATOR End stage renal disease (CMS/HCC) (HCC) HEPATITIS B SURFACE ANTIBODY (IMMUNE STATUS) Routine 07/29/2024 11:01 AM FLESHING MACHINE OPERATOR End stage renal disease (CMS/HCC) (HCC) HEPATITIS B SURFACE ANTIGEN Routine 07/29/2024 11:01 AM FLESHING MACHINE OPERATOR End stage renal disease (CMS/HCC) (HCC) HEPATITIS C ANTIBODY Routine 07/29/2024 11:01 AM FLESHING MACHINE OPERATOR End stage renal disease (CMS/HCC) (HCC) RPR Routine 07/29/2024 11:01 AM FLESHING MACHINE OPERATOR End stage renal disease (CMS/HCC) (HCC) VARICELLA ZOSTER ANTIBODY, IGG Routine 07/29/2024 11:01 AM FLESHING MACHINE OPERATOR End stage renal disease (CMS/HCC) (HCC) URINALYSIS, MICROSCOPIC ONLY Routine 07/29/2024 10:53 AM FLESHING MACHINE OPERATOR End stage renal disease (CMS/HCC) (HCC) OXALATE Routine 07/29/2024 10:53 AM FLESHING MACHINE OPERATOR ESRD (end stage renal disease) (CMS/HCC) (HCC) URINALYSIS AND REFLEX TO MICROSCOPIC Routine 07/29/2024 10:53 AM FLESHING MACHINE OPERATOR End stage renal disease (CMS/HCC) (HCC) CARDIOLOGY DOCUMENT SCAN Routine 06/07/2024 11:10 AM CDT TSH Routine 10/27/2023 2:30 AM FLESHING MACHINE OPERATOR from Last 3 Months or Most Recently Relevant to Health Maintenance Results * HLA Solid Organ Typing Report (08/02/2024 9:04 AM FLESHING MACHINE OPERATOR) [facility] Jaylen King MD LAB GENETIC TESTIN G Final Result * Six Minute Walk - (07/29/2024 2:46 PM FLESHING MACHINE OPERATOR) Anatomical Region Laterality Modality PFT Narrative 07/29/2024 3:52 PM FLESHING MACHINE OPERATOR Table formatting from the original result was not included. Davey Pickard V., ADMINISTRATIVE SUPPORT COORDINATOR on 07/29/2024 ??2:45 PM Table formatting from the original note was not included. 6 MINUTE WALK RESULTS Name: Juvenal Daigle Jr : 1970 DOS: 07/29/2024 Diagnosis: ESRD/KTE ADMINISTRATIVE SUPPORT COORDINATOR performed walk: Carmenza Pickard Rest: 1 min [...] Prescription: RA at rest and with exercise [facility] Jaylen King MD RESPIRATORY CARE O RDERASANDRA Final Result * CT Abdomen Pelvis WO Contrast (07/29/2024 12:43 PM FLESHING MACHINE OPERATOR) Anatomical Region Laterality Modality Body N/A Computed Tomogra phy 07/29/2024 1:04 PM FLESHING MACHINE OPERATOR Impressions 07/29/2024 1:04 PM FLESHING MACHINE OPERATOR 1. ??Moderate discontinuous atherosclerotic calcifications involve the [...] Teresa Rivera M.D. 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 Electronically signed by: Julio Pinedo M.D. Narrative 07/29/2024 12:59 PM FLESHING MACHINE OPERATOR EXAMINATION: XR ORTHOPANTOGRAM/PANOREX HISTORY: Kidney Transplant Evaluation [...] * Type and screen (07/29/2024 11:23 AM FLESHING MACHINE OPERATOR) Maribel, indirect Negative ABO Rh A Positive [facility] Blood 07/29/2024 11:2 3 AM FLESHING MACHINE OPERATOR 07/29/2024 11:43 AM FLESHING MACHINE OPERATOR Narrative [facility] - 07/29/2024 12:45 PM FLESHING MACHINE OPERATOR Please draw the ABO and the Type and Screen as two separate blood draws with each stamped with the two different times stamps as this is a regulatory requirement for this patient to be listed for Kidney Transplant. ??This lab is being obtained as part of a Kidney transplant evaluation, is time sensitive, and should only be drawn during the evaluation visit at [facility] Lab. Has the patient had Daratumumab or Isatuximab in the past 6 months?->Unknown Jossie King MD LAB BLOOD BANK ERNESTO T ORDERABLES Final Result [facility] Department [place] [address] * ECG 12 lead (07/29/2024 11:14 AM FLESHING MACHINE OPERATOR) Ventricular Rate EKG/Min 117 BPM [facility] Atrial Rate 117 BPM [facility] LA-Interval (MSEC) 144 ms [facility] QRS-Interval (MSEC) 126 ms [facility] QT-Interval (MSEC) 366 ms [facility] QTc 510 ms [facility] R Delta -40 degrees [facility] T Delta 147 degrees [facility] [...] Inferior leads Confirmed by FERDINAND SAL M.D ([id number]) on 07/29/2024 3:38:41 PM [facility] 07/29/2024 11:1 4 AM FLESHING MACHINE OPERATOR 07/29/2024 3:38 PM FLESHING MACHINE OPERATOR Jossie King MD ECG ORDERABLES Fi nal Result Performing Organization Address City/[facility] Co de Phone Number [facility] * ABO/Rh (07/29/2024 11:13 AM FLESHING MACHINE OPERATOR) ABO Rh A Positive Blood 07/29/2024 11:1 3 AM FLESHING MACHINE OPERATOR 07/29/2024 2:45 PM FLESHING MACHINE OPERATOR Jossie King MD LAB BLOOD BANK ERNESTO T ORDERABLES Final Result Performing Organization Address City/[facility] Co de Phone Number [facility] Department [place] [address] * LR HLA Typing (Class I and Class II) (07/29/2024 11:01 AM FLESHING MACHINE OPERATOR) r-SSO HISTOTRAC A First Allele A*03 HISTOTRAC [...] 07/30/24 HISTOTRAC Blood 07/29/2024 11:0 1 AM FLESHING MACHINE OPERATOR 08/02/2024 9:03 AM FLESHING MACHINE OPERATOR Narrative HISTOT[facility] - 08/02/2024 9:03 AM FLESHING MACHINE OPERATOR DNA was extracted from whole blood or buccal cell specimens, and relevant genomic regions were amplified by polymerase chain reactions (PCR). HLA typing was performed on PCR amplicons using reverse sequence-specific oligonucleotide (r-SSO) and/or sequence-specific primers (SSP) based techniques. r-SSO and SSP are FDA approved as IVD tests and validated by the [facility]. Testing performed at the [facility], [address] [place] [address], 5th floor, [place], [address]. [facility] # [id number]. Dorothy Meade, Ph.D., Record Clerk, HLA Laboratory Rell Samuels M.D., Ph.D., Pigment Processor, HLA Laboratory Licha Nieto, Ph.D., CLIA Pigment Processor, [facility] Current methodology comment last revised on 04/25/17. us Jossie King MD LAB BLOOD ORDERABL ES Final Result H[facility] * Collection Task for HLA Typing 1 (07/29/2024 11:01 AM FLESHING MACHINE OPERATOR) HLA Class I DNA (ABC) Recipient Received Blood 07/29/2024 11:0 1 AM FLESHING MACHINE OPERATOR 07/29/2024 11:56 AM FLESHING MACHINE OPERATOR Jossie King MD LAB BLOOD ORDERABL ES Final Result Performing Organization Address [facility] de Phone Number ALESSANDRA [facility] [place] [address] * Collection Task for HLA Antibody Screen (07/29/2024 11:01 AM FLESHING MACHINE OPERATOR) [facility] HLA Antibody Screen By Single Antigen Received Blood 07/29/2024 11:0 1 AM FLESHING MACHINE OPERATOR 07/29/2024 11:56 AM FLESHING MACHINE OPERATOR Jossie King MD LAB BLOOD ORDERABL ES Final Result Performing Organization Address [facility] [place] [address] * Collection Task for HLA Typing 2, Patient (07/29/2024 11:01 AM FLESHING MACHINE OPERATOR) [facility] HLA Class II DNA (DR, DQ, DP) Recipient Received Blood 07/29/2024 11:0 1 AM FLESHING MACHINE OPERATOR 07/29/2024 11:56 AM FLESHING MACHINE OPERATOR Jossie King MD LAB BLOOD ORDERABL ES Final Result Performing Organization Address [facility] [place] [address] * (ABNORMAL) eGFR (07/29/2024 11:01 AM FLESHING MACHINE OPERATOR) [facility] eGFR 7(L) >=60 mL/min/1. [...] reviewed 2021. Blood 07/29/2024 11:0 1 AM FLESHING MACHINE OPERATOR 07/29/2024 11:33 AM FLESHING MACHINE OPERATOR us Jossie King MD LAB BLOOD ORDERABL ES Final Result [facility] Department [place] [address] * Differential, auto (07/29/2024 11:01 AM FLESHING MACHINE OPERATOR) Pathologist [facility] Neutrophil abs 3.1 1.5 - 6.5 K/cumm Imm gran abs 0.0 0.0 - 0.1 K/cumm [facility] Lymphocyte abs 1.1 0.8 - 3.3 K/cumm [facility] Monocyte abs 0.7 0.2 - 0.8 K/cumm [facility] Eosinophil abs 0.2 0.0 - 0.5 K/cumm [facility] Basophil abs 0.0 0.0 - 0.1 K/cumm [facility] Neutrophil pct 60.3 % [facility] Comment: Interpretive Data Percent cell count reference ranges are not reported, since discordance with absolute values may lead to misinterpretation of CBC data. Current Interpretive Data was last revised on 2017. Imm gran pct 0.6 % [facility] Comment: Interpretive Data Percent cell count reference ranges are not reported, since discordance with absolute values may lead to misinterpretation of CBC data. Current Interpretive Data was last revised on 2017. Lymphocyte pct 21.4 % [facility] Comment: Interpretive Data Percent cell count reference ranges are not reported, since discordance with absolute values may lead to misinterpretation of CBC data. Current Interpretive Data was last revised on 2017. Monocyte pct 13.7 % [facility] Comment: Interpretive Data Percent cell count reference ranges are not reported, since discordance with absolute values may lead to misinterpretation of CBC data. Current Interpretive Data was last revised on 2017. Eosinophil pct 3.2 % [facility] Comment: Interpretive Data Percent cell count reference ranges are not reported, since discordance with absolute values may lead to misinterpretation of CBC data. Current Interpretive Data was last revised on 2017. Basophil pct 0.8 % [facility] Comment: Interpretive Data Percent cell count reference ranges are not reported, since discordance with absolute values may lead to misinterpretation of CBC data. Current Interpretive Data was last revised on 2017. Blood 07/29/2024 11:0 1 AM FLESHING MACHINE OPERATOR 07/29/2024 11:34 AM FLESHING MACHINE OPERATOR us Jossie King MD LAB BLOOD ORDERABL ES Final Result Performing Organization Address City/State/[facility] Co de Phone Number [facility] Department [place] [address] * PSA screen (07/29/2024 11:01 AM FLESHING MACHINE OPERATOR) PSA-Total 0.55 <=3.90 ng/mL Comment: Interpretive Data [...] revised 21. Blood 07/29/2024 11:0 1 AM FLESHING MACHINE OPERATOR 07/29/2024 11:33 AM FLESHING MACHINE OPERATOR Narrative [facility] - 07/29/2024 12:39 PM FLESHING MACHINE OPERATOR This lab is being obtained as part of a Kidney transplant evaluation, is time sensitive, and should only be drawn during the evaluation visit at [address] Jossie King MD LAB BLOOD ORDERABL ES Final Result Performing Organization Address City/State/[facility] Co de Phone Number [facility] Department [place] [address] * (ABNORMAL) Iron profile w/ IBC (07/29/2024 11:01 AM FLESHING MACHINE OPERATOR) Iron 62 50 - 150 mcg/dL TIBC 208(L) 250 - 400 mcg/dL [facility] Transferrin saturation 30 20 - 50 % [facility] Blood 07/29/2024 11:0 1 AM FLESHING MACHINE OPERATOR 07/29/2024 11:33 AM FLESHING MACHINE OPERATOR Narrative [facility] - 07/29/2024 12:10 PM FLESHING MACHINE OPERATOR This lab is being obtained as part of a Kidney transplant evaluation, is time sensitive, and should only be drawn during the evaluation visit at [address] Jossie King MD LAB BLOOD ORDERABL ES Final Result Performing Organization Address City/State/[facility] Co de Phone Number [facility] [place] [address] * HIV 1/2 Antibody plus p24 Antigen Blood (07/29/2024 11:01 AM FLESHING MACHINE OPERATOR) Pathologist [facility] HIV 1/2 ab + p24 ag Nonreactive Nonreactive Comment:Nonreactive for HIV- 1 antigen and HIV-1/HIV-2 antibodies. No laboratory evidence of HIV infection. If acute HIV infection is suspected, consider testing for HIV-1 RNA. Current interpretive data was last revised on 22. Blood 07/29/2024 11:0 1 AM FLESHING MACHINE OPERATOR 07/29/2024 11:32 AM FLESHING MACHINE OPERATOR Narrative [facility] 07/29/2024 12:13 PM FLESHING MACHINE OPERATOR This lab is being obtained as part of a Kidney transplant evaluation, is time sensitive, and should only be drawn during the evaluation visit at [facility] Lab. Jossie Knig MD LAB MICROBIOLOGY - GENERAL ORDERABLES Final Result Performing Organization Address [facility] de Phone Number [facility] [place] [address] * (ABNORMAL) CMV, IgG Blood (07/29/2024 11:01 AM FLESHING MACHINE OPERATOR) [facility] CMV IgG Positive( A) [...] CMV infection. Blood 07/29/2024 11:0 1 AM FLESHING MACHINE OPERATOR 07/29/2024 11:33 AM FLESHING MACHINE OPERATOR Narrative [facility] - 07/29/2024 1:44 PM FLESHING MACHINE OPERATOR This lab is being obtained as part of a Kidney transplant evaluation, is time sensitive, and should only be drawn during the evaluation visit at [facility] Lab. Jossie King MD LAB MICROBIOLOGY - GENERAL ORDERABLES Final Result AL[facility]DRA [facility] Department [place] [address] * HLA Antibody Screen - SAB (Class I and Class II) (07/29/2024 11:01 AM FLESHING MACHINE OPERATOR) Class I Treatment EDTA HISTOTR[facility] Class I [...] DR52 HISTOTRAC Blood 07/29/2024 11:0 1 AM FLESHING MACHINE OPERATOR 08/02/2024 9:46 AM FLESHING MACHINE OPERATOR Narrative [facility] - 08/02/2024 9:46 AM FLESHING MACHINE OPERATOR Single-antigen HLA antibody screen is performed on serum samples using a method developed and validated by the [facility] laboratory based on an FDA-approved IVD kit (LABScreen Single-Antigen, [employer], [place], [place]). All patient serum samples are pretreated with EDTA before the screen to prevent complement interference. Additional serum treatments, such as adsorption and DTT treatment, may be performed as indicated. ??Interpretive comments: Low risk: MFI [id number]. Moderate risk: MFI [id number]. Increased risk: MFI >/= 5000. The presence [...] antigens to avoid. Testing performed at the [facility], [address] [place] [address], 5th floor, [place], [address]. CLIA # [id number]. Dorothy Meade, Ph.D., Record Clerk, HLA Laboratory Rell Samuels M.D., Ph.D., Pigment Processor, HLA Laboratory Licha Nieto, Ph.D., CLIA Pigment Processor, [facility] Current methodology and interpretive comments last revised on 09/15/2022. us Jossie King MD LAB BLOOD ORDERABL ES Final Result [facility] * (ABNORMAL) CBC with auto differential (07/29/2024 11:01 AM FLESHING MACHINE OPERATOR) WBC 5.1 3.8 - 9.9 K/cumm Hgb 11.5(L) 13.0 - 17.5 g/dL [facility] Hct 34.4(L) 38.9 - 50.3 % [facility] Plt 208 150 - 400 K/cumm [facility] MPV 10.8 9.1 - 12.3 fL [facility] RBC 3.76(L) 4.30 - 5.80 M/cumm [facility] MCV 91.5 81.3 - 96.4 fL [facility] MCH 30.6 27.1 - 33.3 pg [facility] MCHC 33.4 32.3 - 35.7 g/dL [facility] RDW CV 14.3 11.1 - 14.9 % [facility] RDW SD 47.9 35.7 - 48.1 fL [facility] NRBC abs 0.00 0.00 - 0.01 K/cumm [facility] Blood 07/29/2024 11:0 1 AM FLESHING MACHINE OPERATOR 07/29/2024 11:34 AM FLESHING MACHINE OPERATOR Narrative [facility] - 07/29/2024 11:45 AM FLESHING MACHINE OPERATOR This lab is being obtained as part of a Kidney transplant evaluation, is time sensitive, and should only be drawn during the evaluation visit at [address] Jossie King MD LAB BLOOD ORDERABL ES Final Result Performing Organization Address [facility] Co de Phone Number [facility] [place] [address] * Hepatitis C antibody Blood (07/29/2024 11:01 AM FLESHING MACHINE OPERATOR) Pathologist [facility] Hep C Ab Nonreactive Nonreactive Comment:Antibodies to HCV no t detected. Does NOT exclude the possibility of recent exposure to HCV. Current interpretive data was last revised on 22 Blood 07/29/2024 11:0 1 AM FLESHING MACHINE OPERATOR 07/29/2024 11:32 AM FLESHING MACHINE OPERATOR Narrative [facility] - 07/29/2024 12:47 PM FLESHING MACHINE OPERATOR This lab is being obtained as part of a Kidney transplant evaluation, is time sensitive, and should only be drawn during the evaluation visit at [address] Jossie King MD LAB MICROBIOLOGY - GENERAL ORDERABLES Final Result Performing Organization Address City/[facility]/ZIP Co de Phone Number [facility] [place] [address] * (ABNORMAL) Madiha-Morris virus (EBV) antibody panel Blood (07/29/2024 11:01 AM FLESHING MACHINE OPERATOR) Pathologist [facility] EBV nuclear Ab Positive(A) Negative Comment:Indicates the presen ce of detectable IgG antibody to EBV Nuclear Antigen. EBV VCA IgG Positive(A) Negative [facility] Comment:Indicates the presen ce of antibody; 90% of the adult population will have been infected with EBV sometime in the past. EBV VCA IgM Negative Negative [facility] Comment:No detectable IgM an tibody to EBV-VCA. A negative result indicates no current infection with EBV. If clinical suspicion of acute EBV infection is present, testing should be repeated after one week. EBV interp Past Infection [facility] Blood 07/29/2024 11:0 1 AM FLESHING MACHINE OPERATOR 07/29/2024 11:33 AM FLESHING MACHINE OPERATOR Narrative [facility] - 07/29/2024 1:43 PM FLESHING MACHINE OPERATOR This lab is being obtained as part of a Kidney transplant evaluation, is time sensitive, and should only be drawn during the evaluation visit at [address] Lab. Jossie King MD LAB MICROBIOLOGY - GENERAL ORDERABLES Final Result Performing Organization Address City/[facility]/ZIP Co de Phone Number [facility] Department [place] [address] * Hepatitis B core antibody, total Blood (07/29/2024 11:01 AM FLESHING MACHINE OPERATOR) [facility] Hep B core IgG/IgM Nonreactive Nonreactive Blood 07/29/2024 11:0 1 AM FLESHING MACHINE OPERATOR 07/29/2024 11:32 AM FLESHING MACHINE OPERATOR Narrative [facility] - 07/29/2024 12:47 PM FLESHING MACHINE OPERATOR This lab is being obtained as part of a Kidney transplant evaluation, is time sensitive, and should only be drawn during the evaluation visit at [address] Jossie King MD LAB MICROBIOLOGY - GENERAL ORDERABLES Final Result [facility] Department [place] [address] * Protein, urine, random (07/29/2024 11:01 AM FLESHING MACHINE OPERATOR) Protein, ur, quant 121.2 mg/dL Comment: Interpretive Data No reference range established. Current interpretive data was last revised 2019. Urine 07/29/2024 11:0 1 AM FLESHING MACHINE OPERATOR 07/29/2024 11:32 AM FLESHING MACHINE OPERATOR Narrative [facility] - 07/29/2024 12:18 PM FLESHING MACHINE OPERATOR This lab is being obtained as part of a Kidney transplant evaluation, is time sensitive, and should only be drawn during the evaluation visit at [address] Lab[address] Jossie King MD LAB URINE ORDERABL ES Final Result Performing Organization Address [facility] de Phone Number [facility] [place] [address] * Creatinine, urine, random (07/29/2024 11:01 AM FLESHING MACHINE OPERATOR) Creatinine Ur 167.1 mg/dL Comment: Interpretive Data No reference range established. Current interpretive data was last revised 2019. Urine 07/29/2024 11:0 1 AM FLESHING MACHINE OPERATOR 07/29/2024 11:32 AM FLESHING MACHINE OPERATOR Narrative [facility] - 07/29/2024 12:18 PM FLESHING MACHINE OPERATOR This lab is being obtained as part of a Kidney transplant evaluation, is time sensitive, and should only be drawn during the evaluation visit at [address]. Jossie King MD LAB URINE ORDERABL ES Final Result Performing Organization Address [facility] Co de Phone Number [facility] Department [place] [address] * HSV 2 IgG Antibody Blood (07/29/2024 11:01 AM FLESHING MACHINE OPERATOR) HSV 2 IgG Nonreactive Nonreactive Comment: Interpretive Data 1. Nonreactive: No detectable IgG antibody to HSV-2. 2. Equivocal: Presence or absence of detectable antibodies to HSV-2 cannot be determined and the test should be repeated. 3. Reactive: Indicates presence of detectable IgG antibody to HSV-2. Current interpretive data was last revised on 2022. Blood 07/29/2024 11:0 1 AM FLESHING MACHINE OPERATOR 07/29/2024 11:33 AM FLESHING MACHINE OPERATOR Narrative [facility] - 07/29/2024 1:44 PM FLESHING MACHINE OPERATOR This lab is being obtained as part of a Kidney transplant evaluation, is time sensitive, and should only be drawn during the evaluation visit at [address] Lab. Jossie King MD LAB MICROBIOLOGY - GENERAL ORDERABLES Final Result [facility] [place] [address] * (ABNORMAL) HSV 1 IgG Antibody Blood (07/29/2024 11:01 AM FLESHING MACHINE OPERATOR) HSV 1 IgG Reactive( A) Nonreactive Comment: Interpretive Data 1. Nonreactive: No detectable IgG antibody to HSV-1. 2. Equivocal: Presence or absence of detectable antibodies to HSV-1 cannot be determined and the test should be repeated. 3. Reactive: Indicates presence of detectable IgG antibody to HSV-1. Current interpretive data was last revised on 2016. Blood 07/29/2024 11:0 1 AM FLESHING MACHINE OPERATOR 07/29/2024 11:33 AM FLESHING MACHINE OPERATOR Narrative ALESSANDRA [facility] - 07/29/2024 1:44 PM FLESHING MACHINE OPERATOR This lab is being obtained as part of a Kidney transplant evaluation, is time sensitive, and should only be drawn during the evaluation visit at [address] Lab. Jossie King MD LAB MICROBIOLOGY - GENERAL ORDERABLES Final Result [facility] [place] [address] * RPR Blood (07/29/2024 11:01 AM FLESHING MACHINE OPERATOR) RPR Nonreactive Nonreactive Blood 07/29/2024 11:0 1 AM FLESHING MACHINE OPERATOR 07/29/2024 11:33 AM FLESHING MACHINE OPERATOR Narrative [facility] - 07/29/2024 12:34 PM FLESHING MACHINE OPERATOR This lab is being obtained as part of a Kidney transplant evaluation, is time sensitive, and should only be drawn during the evaluation visit at [address] Result [facility] Jossie King MD LAB MICROBIOLOGY - GENERAL ORDERABLES Final Result Performing Organization Address [facility] de Phone Number [facility] [place] [address] * Hepatitis B surface antibody (immune status) Blood (07/29/2024 11:01 AM FLESHING MACHINE OPERATOR) HBsAb (immune status) Reactive Comment:This result is consi stent with immunity to Hepatitis B Virus when used in the setting of routine screening. Current interpretive data was last revised on 22 Blood 07/29/2024 11:0 1 AM FLESHING MACHINE OPERATOR 07/29/2024 11:32 AM FLESHING MACHINE OPERATOR Narrative [facility] 07/29/2024 12:47 PM FLESHING MACHINE OPERATOR This lab is being obtained as part of a Kidney transplant evaluation, is time sensitive, and should only be drawn during the evaluation visit at [address] Result [facility] Jossie King MD LAB MICROBIOLOGY - GENERAL ORDERABLES Final Result Performing Organization Address [facility] de Phone Number [facility] [place] [address] * Hepatitis B Surface Antigen Blood (07/29/2024 11:01 AM FLESHING MACHINE OPERATOR) HepBsAg Nonreactive Nonreactive Blood 07/29/2024 11:0 1 AM FLESHING MACHINE OPERATOR 07/29/2024 11:32 AM FLESHING MACHINE OPERATOR Narrative [facility] 07/29/2024 12:47 PM FLESHING MACHINE OPERATOR This lab is being obtained as part of a Kidney transplant evaluation, is time sensitive, and should only be drawn during the evaluation visit at [address] Jossie King MD LAB MICROBIOLOGY - GENERAL ORDERABLES Final Result Performing Organization Address [facility] [place] [address] * (ABNORMAL) aPTT (07/29/2024 11:01 AM FLESHING MACHINE OPERATOR) aPTT 61(H) 28 - 38 sec Comment: Interpretive Data Heparin therapeutic range: 66.0 - 100.0 seconds. Range based on correlation with therapeutic heparin activity range of 0.3 - 0.7 Units/mL. Current interpretive data was last revised on 2023. Blood 07/29/2024 11:0 1 AM FLESHING MACHINE OPERATOR 07/29/2024 11:32 AM FLESHING MACHINE OPERATOR Narrative [facility] - 07/29/2024 11:42 AM FLESHING MACHINE OPERATOR This lab is being obtained as part of a Kidney transplant evaluation, is time sensitive, and should only be drawn during the evaluation visit at [facility] Lab. Jossie King MD LAB BLOOD ORDERABL ES Final Result Performing Organization Address [facility] de Phone Number [facility] [place] [address] * (ABNORMAL) Protime-INR (07/29/2024 11:01 AM FLESHING MACHINE OPERATOR) PT 50.6(H) 9.7 - 13.0 sec INR 4.54(H) 0.90 - 1.20 [facility] Comment: Interpretive data Oral anticoagulant therapeutic ranges: Venous thromboembolism prophylaxis or treatment: 2.0-3.0 CARDIOLOGY Standard range: 2.0-3.0 High-intensity range: 2.5-3.5 Refer to indication-specific guidelines for appropriate target ranges for prosthetic heart valve replacement. Current interpretive data was last revised on 2019. Blood 07/29/2024 11:0 1 AM FLESHING MACHINE OPERATOR 07/29/2024 11:32 AM FLESHING MACHINE OPERATOR Narrative ALESSANDRA [facility] - 07/29/2024 11:42 AM FLESHING MACHINE OPERATOR This lab is being obtained as part of a Kidney transplant evaluation, is time sensitive, and should only be drawn during the evaluation visit at [address] Result [facility] Jossie King MD LAB BLOOD ORDERABL ES Final Result Performing Organization Address [facility] Co de Phone Number [facility] [place] [address] * Varicella Zoster IgG antibody Blood (07/29/2024 11:01 AM FLESHING MACHINE OPERATOR) Pathologist [facility] VZV IgG Reactive Reactive Comment:Reactive: Results diego ggest response to immunization or prior exposure to the virus. Blood 07/29/2024 11:0 1 AM FLESHING MACHINE OPERATOR 07/29/2024 11:33 AM FLESHING MACHINE OPERATOR Narrative [facility] 07/29/2024 1:45 PM FLESHING MACHINE OPERATOR This lab is being obtained as part of a Kidney transplant evaluation, is time sensitive, and should only be drawn during the evaluation visit at [address] Result [facility] Jossie King MD LAB MICROBIOLOGY - GENERAL ORDERABLES Final Result Performing Organization Address [facility] de Phone Number [facility] [place] [address] * (ABNORMAL) Uric acid (07/29/2024 11:01 AM FLESHING MACHINE OPERATOR) Pathologist [facility] Uric acid 2.0(L) 3.0 - 8.0 mg/dL Blood 07/29/2024 11:0 1 AM FLESHING MACHINE OPERATOR 07/29/2024 11:33 AM FLESHING MACHINE OPERATOR Narrative [facility] 07/29/2024 12:10 PM FLESHING MACHINE OPERATOR This lab is being obtained as part of a Kidney transplant evaluation, is time sensitive, and should only be drawn during the evaluation visit at [address] Result [facility] Jossie King MD LAB BLOOD ORDERABL ES Final Result Performing Organization Address [facility] Co de Phone Number [facility] [place] [address] * (ABNORMAL) Phosphorus (07/29/2024 11:01 AM FLESHING MACHINE OPERATOR) [facility] Phosphorus, pl 5.1(H) 2.3 - 4.5 mg/dL Blood 07/29/2024 11:0 1 AM FLESHING MACHINE OPERATOR 07/29/2024 11:33 AM FLESHING MACHINE OPERATOR Narrative [facility] - 07/29/2024 12:10 PM FLESHING MACHINE OPERATOR This lab is being obtained as part of a Kidney transplant evaluation, is time sensitive, and should only be drawn during the evaluation visit at [address] Jossie King MD LAB BLOOD ORDERABL ES Final Result Performing Organization Address [facility] [place] [address] * (ABNORMAL) PTH (07/29/2024 11:01 AM FLESHING MACHINE OPERATOR) [facility] PTH 444(H) 15 - 65 pg/mL Blood 07/29/2024 11:0 1 AM FLESHING MACHINE OPERATOR 07/29/2024 11:34 AM FLESHING MACHINE OPERATOR Narrative [facility] - 07/29/2024 12:02 PM FLESHING MACHINE OPERATOR This lab is being obtained as part of a Kidney transplant evaluation, is time sensitive, and should only be drawn during the evaluation visit at [address] Jossie King MD LAB BLOOD ORDERABL ES Final Result Performing Organization Address City/[facility] [place] [address] * (ABNORMAL) Hemoglobin A1c (07/29/2024 11:01 AM FLESHING MACHINE OPERATOR) [facility] Hgb A1C 9.0(H) 4.0 - 5.6 % Estimated Average Glucose 212 mg/dL [facility] Comment: The ADA recommends reporting an estimated Average Glucose (eAG) with all Hemoglobin A1c results using the equation derived from a study of 507 normal and diabetic adults. ??Minority populations were underrepresented and children were not included. ?? (Diabetes Care 2020; 43(S1): S66-S76). ??The eAG is not equivalent to a fasting glucose. Blood 07/29/2024 11:0 1 AM FLESHING MACHINE OPERATOR 07/29/2024 11:34 AM FLESHING MACHINE OPERATOR Narrative [facility] - 07/29/2024 11:53 AM FLESHING MACHINE OPERATOR This lab is being obtained as part of a Kidney transplant evaluation, is time sensitive, and should only be drawn during the evaluation visit at [address] Jossie King MD LAB BLOOD ORDERABL ES Final Result Performing Organization Address [facility] de Phone Number [facility] Department [place] [address] * Gamma GT (07/29/2024 11:01 AM FLESHING MACHINE OPERATOR) GGT 22 10 - 50 Units/L Blood 07/29/2024 11:0 1 AM FLESHING MACHINE OPERATOR 07/29/2024 11:33 AM FLESHING MACHINE OPERATOR Narrative [facility] - 07/29/2024 12:40 PM FLESHING MACHINE OPERATOR This lab is being obtained as part of a Kidney transplant evaluation, is time sensitive, and should only be drawn during the evaluation visit at [address] Jossie King MD LAB BLOOD ORDERABL ES Final Result Performing Organization Address [facility] Co de Phone Number [facility] [place] [address] * (ABNORMAL) Ferritin (07/29/2024 11:01 AM FLESHING MACHINE OPERATOR) Ferritin 761(H) 30 - 400 ng/mL Blood 07/29/2024 11:0 1 AM FLESHING MACHINE OPERATOR 07/29/2024 11:33 AM FLESHING MACHINE OPERATOR Narrative [facility] - 07/29/2024 12:10 PM FLESHING MACHINE OPERATOR This lab is being obtained as part of a Kidney transplant evaluation, is time sensitive, and should only be drawn during the evaluation visit at [facility]. us Jossie King MD LAB BLOOD ORDERABL ES Final Result [facility] Department [place] [address] * (ABNORMAL) Lipid panel (07/29/2024 11:01 AM FLESHING MACHINE OPERATOR) Cholesterol 114 30 - 199 mg/dL Comment: [...] revised on 2018. Triglycerides 66 <=149 mg/dL [facility] Comment: Interpretive Data Ages < [...] revised on 2018. HDL 29(L) >=40 mg/dL [facility] Comment: Interpretive Data Ages < [...] on 2018. LDL, calculated 71 <=129 mg/dL [facility] Comment: Interpretive Data Ages < [...] 2024. Non-HDL Cholesterol 85 mg/dL [facility] Comment: Interpretive Data Ages < [...] on 2018. Chol/HDL ratio 4 [facility] Blood 07/29/2024 11:0 1 AM FLESHING MACHINE OPERATOR 07/29/2024 11:33 AM FLESHING MACHINE OPERATOR Narrative [facility] - 07/29/2024 12:10 PM FLESHING MACHINE OPERATOR This lab is being obtained as part of a Kidney transplant evaluation, is time sensitive, and should only be drawn during the evaluation visit at [facility] Lab. us Jossie King MD LAB BLOOD ORDERABL ES Final Result [facility] Department [place] [address] * (ABNORMAL) Comprehensive metabolic panel (07/29/2024 11:01 AM FLESHING MACHINE OPERATOR) [facility] Sodium 136 135 - 145 mmol/L Potassium, pl 4.6 3.3 - 4.9 mmol/L [facility] Chloride 93(L) 97 - 110 mmol/L [facility] CO2 26 22 - 32 mmol/L [facility] Anion gap 17(H) 2 - 15 mmol/L [facility] BUN 65(H) 6 - 25 mg/dL [facility] Creatinine 8.07(H) 0.80 - 1.30 mg/dL [facility] Glucose 280(H) 70 - 199 mg/dL [facility] Comment: Interpretive Data Fasting glucose [...] 9.4 8.5 - 10.3 mg/dL [facility] Bilirubin, total 0.3 0.1 - 1.2 mg/dL [facility] Protein, pl 7.2 6.5 - 8.5 g/dL [facility] Albumin 3.8 3.5 - 5.0 g/dL [facility] Alk phos 99 40 - 130 Units/L [facility] ALT 30 7 - 55 Units/L [facility] AST 31 10 - 50 Units/L [facility] Blood 07/29/2024 11:0 1 AM FLESHING MACHINE OPERATOR 07/29/2024 11:33 AM FLESHING MACHINE OPERATOR Narrative [facility] - 07/29/2024 12:10 PM FLESHING MACHINE OPERATOR This lab is being obtained as part of a Kidney transplant evaluation, is time sensitive, and should only be drawn during the evaluation visit at [facility]. Jossie King MD LAB BLOOD ORDERABL ES Final Result [facility] [place] [address] * (ABNORMAL) Oxalate (oxalic acid) (07/29/2024 10:53 AM FLESHING MACHINE OPERATOR) [facility] Signature Oxalate 12.3(H) <=2.0 mcmol/L [facility] Comment: High value suggestive of Primary Hyperoxaluria. However, if the patient has chronic kidney disease (GFR<30 mL/min/1.73m2), plasma oxalate values up to 30 mcmol/L can be normal. The [facility] Hyperoxaluria Center is available to review case details and answer any questions regarding interpretation ([email or web address]; [phone]) ADDITIONAL INFORMATION This test has been modified from the personnel generalist manager's instructions. Its performance characteristics were determined by [facility] in a manner consistent with CLIA requirements. This test has not been cleared or approved by the U.S. Food and Drug Administration. Test Performed by: [facility] [place] [address] Plaster Patternmaker: Jairo Higgins Ph.D.; CLIA# [id number] Blood 07/29/2024 10:5 3 AM FLESHING MACHINE OPERATOR 07/29/2024 11:37 AM FLESHING MACHINE OPERATOR Jossie King MD LAB BLOOD ORDERABL ES Final Result [facility] Department [place] [address] [facility] * (ABNORMAL) Urinalysis reflex to microscopic (07/29/2024 10:53 AM FLESHING MACHINE OPERATOR) Color, ur Yellow Yellow Clarity, ur Cloudy(A) Clear [facility] Specific gravity, ur 1.022 1.003 - 1.030 [facility] pH, urine 6.0 [facility] Comment: Interpretive Data ? Urine pH is affected by diet, medications, systemic acid-base disturbances, and renal tubular function. ??pH may affect urinary stone formation. ??For example, urine pH below 6.0 may help reduce the tendency for calcium phosphate stones and pH greater than 6.0 may reduce the tendency for uric acid stone formation. Source: [facility] [employer] Current Interpretive Data was last revised on 2017 Protein, ur ql 2+(A) Negative [facility] Glucose, ur ql 4+(A) Negative [facility] Ketones, ur Negative Negative [facility] Bilirubin, ur Negative Negative [facility] Blood, ur 3+(A) Negative [facility] Urobilinogen, ur <2.0 <2.0 mg/dL [facility] Nitrite, ur Negative Negative [facility] Leukocyte esterase, ur 2+(A) Negative [facility] UA reflex comment Reflex to microscopic UA will be performed. [facility] Urine 07/29/2024 10:5 3 AM FLESHING MACHINE OPERATOR 07/29/2024 11:27 AM FLESHING MACHINE OPERATOR Narrative [facility] - 07/29/2024 11:29 AM FLESHING MACHINE OPERATOR This lab is being obtained as part of a Kidney transplant evaluation, is time sensitive, and should only be drawn during the evaluation visit at [facility]. Jossie King MD LAB URINE ORDERABL ES Final Result Performing Organization Address City/[facility] Co de Phone Number [facility] [place] [address] * (ABNORMAL) Urinalysis, microscopic only (07/29/2024 10:53 AM FLESHING MACHINE OPERATOR) WBC, ur 21-50(A) 0 - 5 /HPF RBC, ur >50(A) 0 - 2 /HPF [facility] Epithelial cells, squamous, ur 1-5 0 - 5 /HPF [facility] Bacteria, ur Trace(A) [facility] Mucous, ur Present(A) [facility] Hyaline casts, ur 1-5 0 - 10 /LPF [facility] Urine 07/29/2024 10:5 3 AM FLESHING MACHINE OPERATOR 07/29/2024 11:27 AM FLESHING MACHINE OPERATOR Jossie King MD LAB URINE ORDERABL ES Final Result Performing Organization Address [facility]/ZIP Co de Phone Number [facility] [place] [address] * Cardiology Document Scan (06/07/2024 11:10 AM CDT) Anatomical Region Laterality Modality Other Karen Barnes NP CV CARDIAC SERVICES PROCEDUR ES Final Result * (ABNORMAL) TSH (10/27/2023 2:30 AM FLESHING MACHINE OPERATOR) Thyroid Stimulating Hormone 13.20(H) 0.30 - 4.20 mcIUnit/mL Blood 10/27/2023 2:30 AM FLESHING MACHINE OPERATOR 10/27/2023 2:42 AM FLESHING MACHINE OPERATOR us Lorne Mcnulty MD LAB BLOOD ORDERABLES Final Result [facility] [address] Department [place] [address] from Last 3 Months or Most Recently Relevant to Health Maintenance Insurance [facility] MEDICARE SOLUTIONS MEDICAL [facility] MEDIC[facility] Address: [address] [address] [place] [address] [employer] TRANSPLANT [employer] MED[employer]ARE RISK [employer] TRANSPLANT [employer] MED[employer] RISK [employer] Advance Directives For more information, please contact: [phone] * Full Code (Latest Code Status on File) Date Activated Date Inactivated Comments 10/13/2023 11:32 PM 11/03/2023 11:42 PM * Full Code Date Activated Date Inactivated Comments 06/05/2022 6:17 AM 06/29/2022 6:20 PM * Full Code Date Activated Date Inactivated Comments 06/05/2022 4:43 AM 06/05/2022 4:43 AM * Full Code Date Activated Date Inactivated Comments 06/04/2022 9:55 PM 06/05/2022 4:43 AM Care Teams Steamfitter Supervisor Relationship Specialty Start Date End Date Aditya Castro MD [address] [facility] [place] [address] PCP - General 10/17/19 Alondra Lambert, RN [address] [facility] [address] [place] [address] Frame Opener 03/06/24 Hamlet Ortega Jr., MD [address] [place] [address] Consulting Physician Cardiovascular Disease 05/10/24 Leandro Reyes MD [address] [facility] 1 [place] [address] Consulting Physician Nephrology 07/30/24
--- OUTSIDE RECORDS SUMMARY | 2024-09-07 19:11 | XMS_ITS | Encounter Summary ---
Author Organization [facility] Healthcare Address [address] [place] [address] Care Team Providers Care Rn Staffing Name Role Phone Aditya Castro MD Primary Care Provider [phone] Alondra Lambert RN Unavailable [phone] Shannon Brock MD, Hamlet P. Unavailable [phone] Leandro Reyes MD Unavailable [phone] Encounter Details Date Type Department Care Team (Late st Contact Info) Description 08/06/2024 Documentation [facility] Transplant Kidney [address] [facility] [address] [phone] [place] [address] Alondra Lambert, RN [address] [facility] [address] [place] [id number] Social History Tobacco Use Types Packs/Day Years [...] from doctor or pharmacy Never 12/01/2023 [facility] Utilities Answer Date Recorded In the [...] week 08/01/2024 How often do you attend mosque or lutheran serv ices? Never 08/01/2024 Do [...] in a mcc (including now)? No 10/16/2023 Housing Stability Vital Sign Answer Rubens e Recorded In the last 12 months, was t here a time when you were not able to pay the mortgage or rent on time? No 08/01/2024 In the past 12 months, how m any times have you moved where you were living? 1 08/01/2024 At any time in the past 12 [facility], were you homeless or living in a mcc (including now)? No 08/01/2024 Personal Safety Answer Date Recorded Have you ever been in or are you currently in a harmful physical or emotional relationship or is someone making you feel afraid or unsafe? 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 Gender Identity Not on file Sexual Orientation Not on file documented as of this encounter Plan of Treatment Not on file documented as of this encounter Visit Diagnoses Not on filedocumented in this encounter Care Teams Rn Staffing Relationship Specialty Start Date End Date Aditya Castro MD [address] [facility] [place] [address] PCP - General 10/17/19 Alondra Lambert, RN [address] [address] Decision Support Analyst 03/06/24 Hamlet Ortega Jr., MD [address] [place] [address] Consulting Physician Cardiovascular Disease 05/10/24 Leandro Reyes MD [address] [facility] 1 [place] [address] Consulting Physician Nephrology 07/30/24 documented as of this encounter
--- OUTSIDE RECORDS SUMMARY | 2024-09-07 19:11 | XMS_ITS ---
Author Organization [facility] Address [address] [place] [address] Care Team Providers Care Corduroy Cutting Supervisor Name Role Phone Aditya Castro MD Primary Care Provider [phone] Alondra Lambert RN Unavailable [phone] Shannon Brock MD, [place] P. Unavailable [phone] Leandro Reyes MD Unavailable Dialysis Access Sites Type Status Location Placement Date Removal Da te Peritoneal Dialysis Catheter Continuous cycling Active Hemodialysis Cath Double Inactive Right N emiliano (side) - Anterior 06/18/2022 06/25/2022 Hemodialysis Cath Triple Inactive Neck - Anterior 202106/16/2022 Procedures Procedure Name Priority Date/Time Associated Diagnosis Comments HLA SOLID ORGAN TYPING REPORT 08/02/2024 9:04 AM AREA REPRESENTATIVE SIX MINUTE WALK Routine 07/29/2024 2:46 PM AREA REPRESENTATIVE End stage renal disease (CMS/HCC) (HCC) CT ABDOMEN PELVIS WO CONTRAST Schedule Routine, Read Routine (OP Routine) 07/29/2024 12:43 PM AREA REPRESENTATIVE End stage renal disease (CMS/HCC) (HCC) XR ORTHOPANTOGRAM/PANOR EX Schedule Routine, Read Routine (OP Routine) 07/29/2024 11:44 AM AREA REPRESENTATIVE End stage renal disease (CMS/HCC) (HCC) TYPE AND SCREEN Routine 07/29/2024 11:23 AM AREA REPRESENTATIVE End stage renal disease (CMS/HCC) (HCC) ECG 12-LEAD Routine 07/29/2024 11:14 AM AREA REPRESENTATIVE End stage renal disease (CMS/HCC) (HCC) ABO/RH Routine 07/29/2024 11:13 AM AREA REPRESENTATIVE EGFR Routine 07/29/2024 11:01 AM AREA REPRESENTATIVE End stage renal disease (CMS/HCC) (HCC) DIFFERENTIAL AUTO Routine 07/29/2024 11: 01 AM AREA REPRESENTATIVE End stage renal disease (CMS/HCC) (HCC) CBC WITH AUTO DIFFERENTIAL Routine 07/29/2024 11:01 AM AREA REPRESENTATIVE End stage renal disease (CMS/HCC) (HCC) COMPREHENSIVE METABOLIC PANEL Routine 07/29/2024 11:01 AM AREA REPRESENTATIVE End stage renal disease (CMS/HCC) (HCC) CREATININE, URINE, RANDOM Routine 07/29/2024 11:01 AM AREA REPRESENTATIVE End stage renal disease (CMS/HCC) (HCC) FERRITIN Routine 07/29/2024 11:01 AM AREA REPRESENTATIVE End stage renal disease (CMS/HCC) (HCC) GAMMA GT Routine 07/29/2024 11:01 AM AREA REPRESENTATIVE End stage renal disease (CMS/HCC) (HCC) HEMOGLOBIN A1C Routine 07/29/2024 11:01 AM AREA REPRESENTATIVE End stage renal disease (CMS/HCC) (HCC) IRON PROFILE W/ IBC Routine 07/29/2024 1 1:01 AM AREA REPRESENTATIVE End stage renal disease (CMS/HCC) (HCC) LIPID PANEL Routine 07/29/2024 11:01 AM AREA REPRESENTATIVE End stage renal disease (CMS/HCC) (HCC) PTH Routine 07/29/2024 11:01 AM AREA REPRESENTATIVE End stage renal disease (CMS/HCC) (HCC) APTT Routine 07/29/2024 11:01 AM AREA REPRESENTATIVE End stage renal disease (CMS/HCC) (HCC) PHOSPHORUS Routine 07/29/2024 11:01 AM AREA REPRESENTATIVE End stage renal disease (CMS/HCC) (HCC) PROTEIN, URINE, RANDOM Routine 07/29/2024 11:01 AM AREA REPRESENTATIVE End stage renal disease (CMS/HCC) (HCC) PROTIME-INR Routine 07/29/2024 11:01 AM AREA REPRESENTATIVE End stage renal disease (CMS/HCC) (HCC) URIC ACID Routine 07/29/2024 11:01 AM AREA REPRESENTATIVE End stage renal disease (CMS/HCC) (HCC) PSA SCREEN Routine 07/29/2024 11:01 AM AREA REPRESENTATIVE End stage renal disease (CMS/HCC) (HCC) LR HLA TYPING (CLASS I AND CLASS II) Routine 07/29/2024 11:01 AM AREA REPRESENTATIVE End stage renal disease (CMS/HCC) (HCC) HLA CLASS I DNA (ABC) RECIPIENT Routine 07/29/2024 11:01 AM AREA REPRESENTATIVE End stage renal disease (CMS/HCC) (HCC) HLA CLASS II DNA (DR, DQ, DP) RECIPIENT Routine 07/29/2024 11:01 AM AREA REPRESENTATIVE End stage renal disease (CMS/HCC) (HCC) HLA ANTIBODY SCREEN - SAB (CLASS I AND CLASS II) Routine 07/29/2024 11:01 AM AREA REPRESENTATIVE End stage renal disease (CMS/HCC) (HCC) HLA ANTIBODY SCREEN BY SINGLE ANTIGEN Routine 07/29/2024 11:01 AM AREA REPRESENTATIVE End stage renal disease (CMS/HCC) (HCC) CMV, IGG Routine 07/29/2024 11:01 AM AREA REPRESENTATIVE End stage renal disease (CMS/HCC) (HCC) MADIHA-MORRIS VIRUS VCA ANTIBODY PANEL Routine 07/29/2024 11:01 AM AREA REPRESENTATIVE End stage renal disease (CMS/HCC) (HCC) HIV 1/2 ANTIBODY PLUS P24 ANTIGEN Routine 07/29/2024 11:01 AM AREA REPRESENTATIVE End stage renal disease (CMS/HCC) (HCC) HSV 1 ANTIBODY, IGG Routine 07/29/2024 1 1:01 AM AREA REPRESENTATIVE End stage renal disease (CMS/HCC) (HCC) HSV 2 ANTIBODY, IGG Routine 07/29/2024 1 1:01 AM AREA REPRESENTATIVE End stage renal disease (CMS/HCC) (HCC) HEPATITIS B CORE ANTIBODY, TOTAL Routine 07/29/2024 11:01 AM AREA REPRESENTATIVE End stage renal disease (CMS/HCC) (HCC) HEPATITIS B SURFACE ANTIBODY (IMMUNE STATUS) Routine 07/29/2024 11:01 AM AREA REPRESENTATIVE End stage renal disease (CMS/HCC) (HCC) HEPATITIS B SURFACE ANTIGEN Routine 07/29/2024 11:01 AM AREA REPRESENTATIVE End stage renal disease (CMS/HCC) (HCC) HEPATITIS C ANTIBODY Routine 07/29/2024 11:01 AM AREA REPRESENTATIVE End stage renal disease (CMS/HCC) (HCC) RPR Routine 07/29/2024 11:01 AM AREA REPRESENTATIVE End stage renal disease (CMS/HCC) (HCC) VARICELLA ZOSTER ANTIBODY, IGG Routine 07/29/2024 11:01 AM AREA REPRESENTATIVE End stage renal disease (CMS/HCC) (HCC) URINALYSIS, MICROSCOPIC ONLY Routine 07/29/2024 10:53 AM AREA REPRESENTATIVE End stage renal disease (CMS/HCC) (HCC) OXALATE Routine 07/29/2024 10:53 AM AREA REPRESENTATIVE ESRD (end stage renal disease) ([facility]) ([facility]) URINALYSIS AND REFLEX TO MICROSCOPIC Routine 07/29/2024 10:53 AM AREA REPRESENTATIVE End stage renal disease ([facility]) ([facility]) CARDIOLOGY DOCUMENT SCAN Routine 06/07/2024 11:10 AM CDT TSH Routine 10/27/2023 2:30 AM AREA REPRESENTATIVE from Last 3 Months or Most Recently [...] PUMP: Continue Omnipod 5 insulin pump with [employer] G6 CGM at home settings: TIME BASAL [...] 1 tablet (25 mcg total) by 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 before breakfast 30 tablet 1 11/04/19 24 [...] mg SL tablet 12/28/19 18 Active peg [id number]-fm ycerin (ARTIFICAL TEARS) 1-0.2-0.2 % ophthalmic solution 1 drop 4 (four) times a day 07/07/20 Active potassium chloride ER 20 mEq CR tablet Active Active Problems Problem Noted Date Diagnosed Date End stage renal disease ([facility]) 07/29/2024 Nonrheumatic aortic valve stenosis 11/22/2023 Status post aortic valve replacement 11/22/2023 Status post coronary artery bypass grafting 10/2023 CAD in [place] artery 10/13/2023 Anemia 06/22/2022 Assessment & Plan (06/29/2022 10:12 AM AREA REPRESENTATIVE): Stable, likely 2/2 anemia from ESRD, no [...] trend Hb. ESRD (end stage renal disease) ([facility]) 022 Assessment & Plan (06/29/2022 10:12 AM AREA REPRESENTATIVE): - Renal consulted, s/p CRRT in the ICU now back on PD. Tolerated well and nephrology following - Trialysis catheter removed - Continue vitamins for renal bone mineral disease. Assessment & Plan (06/28/2022 3:29 PM AREA REPRESENTATIVE): - Renal consulted, s/p CRRT in the [...] 06/22/2022 Assessment & Plan (06/29/2022 10:12 AM AREA REPRESENTATIVE): C/b cardiogenic shock requiring impella in the setting of cath and AHRF 2/2 pulmonary edema, now resolved. TTE demonstrating recovered EF 65% with grade I diastolic dysfunction. - metop as above - continue low dose losartan 12.5mg daily, ok per nephro. Tolerating well - volume management per PD Assessment & Plan (06/28/2022 3:29 PM AREA REPRESENTATIVE): C/b cardiogenic shock requiring impella in the [...] start GDMT per cardiology. Atrial fibrillation ([facility]/HCC) 06/22/2022 Assessment & Plan (06/29/2022 10:12 AM AREA REPRESENTATIVE): Converted to NSR overnight on 06/24. CHADsVASc of 4 not on anticoagulation prior to admission. - cardiology consulted - recommended ongoing rate control - holding off on a/c with high risk for bleeding while on DAPT - reduced metop to 25mg BID in the setting of hypotension, HR 70s NSR Assessment & Plan (06/28/2022 3:30 PM AREA REPRESENTATIVE): Converted to NSR overnight on 06/24. CHADsVASc [...] NSTEMI (non-ST elevated myocardial infarction) ( [facility]) 06/22/2022 Assessment & Plan (06/29/2022 10:11 AM AREA REPRESENTATIVE): With recurrent chest pain post-cath. He has [...] today Assessment & Plan (06/28/2022 3:30 PM AREA REPRESENTATIVE): With recurrent chest pain post-cath. He has [...] 06/22/2022 Assessment & Plan (06/29/2022 10:11 AM AREA REPRESENTATIVE): Secondary to NSTEMI, s/p Impella since removed on 06/10. Resolved. Assessment & Plan (06/23/2022 4:55 PM CDT): Secondary to NSTEMI, s/p Impella since removed on 06/10. Resolved. Assessment & Plan (06/22/2022 8:22 PM CDT): -Secondary to NSTEMI, s/p Impella since removed on 06/10. Acute hypoxemic respiratory failure 06/09/2022 Assessment & Plan (06/29/2022 10:12 AM AREA REPRESENTATIVE): Secondary to ACS and flash pulmonary edema, [...] (06/10/2022): Added automatically from request for surgery [id number] Abnormal cardiovascular stress test 12/29/2020 Overview (12/29/2020): Added automatically from request for surgery [id number] 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n ative artery of [place] heart with stable angina pectoris ([facility]) 05/23/2017 History of coronary artery stent placement 05/23 Macular ischemia 03/17/2017 Combined forms of age-related cataract 7 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 03/17/2017 Type 2 diabetes mellitus treated with insulin ([facility] [place]/HCC) 03/25/2015 Overview (11/25/2016): Insulin treated Type II diabetes mellitus Chronic kidney disease, stage III (moderate) 12/2014 Overview (11/25/2016): Chronic kidney disease, stage 3 Benign essential hypertension 03/25/2015 Overview (11/25/2016): Benign essential HTN Hyperlipidemia 03/25/2015 Overview (11/25/2016): Hyperlipidemia Pain of finger 11/24/2014 Hypersomnia 11/22/2013 Chronic kidney disease 11/22/2013 Hypertension 01/18/2013 Type 1 diabetes mellitus 01/18/2013 Assessment & Plan (06/29/2022 10:12 AM AREA REPRESENTATIVE): A1c well controlled on admission. He uses [...] session Assessment & Plan (06/28/2022 3:28 PM AREA REPRESENTATIVE): A1c well controlled on admission. He uses [...] from doctor or pharmacy Never 12/01/2023 [facility] Utilities Answer Date Recorded In the past 12 months has th e [employer], [employer], oil, or water [employer] threatened to shut off services in your home? No 08/01/2024 Social Connection and Isolation Panel [NHANES] A nswer Date Recorded In a typical week, how many times do you talk on the phone with family, friends, or neighbors? Twice a week 08/01/2024 How often do you get together with friends or re latives? Once a week 08/01/2024 How often do you attend jew or jew serv ices? Never 08/01/2024 Do you belong to any clubs o r organizations such as jew groups, unions, fraternal or athletic groups, or [...] a group home (including now)? No 10/16/2023 Housing Stability [...] any time in the past 12 m [facility], were you homeless or living in a group home (including now)? No 08/01/2024 Personal Safety Answer Date Recorded Have you ever been in or are you currently in a harmful physical or emotional relationship or is someone making you feel afraid or unsafe? 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 Male 3:42 AM AREA REPRESENTATIVE Gender Identity Not on file Sexual Orientation Not on file Last Filed Vital Signs Vital Sign Reading Time Taken Comments Blood Pressure 122/75 07/29/2024 1:00 PM AREA REPRESENTATIVE Pulse 116 07/29/2024 1:00 PM AREA REPRESENTATIVE Temperature 36.8 ??C (98.2 ??F) 07/29/2024 1:00 PM CS T Respiratory Rate 16 12/01/2023 11:1 3 AM CDT Oxygen Saturation 96% 12/01/2023 11: 13 AM CDT Inhaled Oxygen Concentration - - Weight 121.2 kg (267 lb 1.6 oz) 07/29/2024 1:00 PM AREA REPRESENTATIVE Height 177.8 cm (5' 10 ) 07/29/2024 1:00 PM AREA REPRESENTATIVE Body Mass Index 38.32 07/29/2024 1:00 PM AREA REPRESENTATIVE Results * HLA Solid Organ Typing Report (08/02/2024 9:04 AM AREA REPRESENTATIVE) us Jossie King MD LAB GENETIC TESTIN G Final Result * Six Minute Walk - (07/29/2024 2:46 PM AREA REPRESENTATIVE) Anatomical Region Laterality Modality PFT Narrative 07/29/2024 3:52 PM AREA REPRESENTATIVE Table formatting from the original result was not included. Davey Pickard V., CHEMICAL SALES REPRESENTATIVE on 07/29/2024 ??2:45 PM Table formatting from the original note was not included. 6 MINUTE WALK RESULTS Name: Juvenal Daigle Jr : 1970 DOS: 07/29/2024 Diagnosis: ESRD/KTE CHEMICAL SALES REPRESENTATIVE performed walk: Carmenza Pickard Rest: 1 min [...] Abdomen Pelvis WO Contrast (07/29/2024 12:43 PM AREA REPRESENTATIVE) Anatomical Region Laterality Modality Body N/A Computed Tomogra phy 07/29/2024 1:04 PM AREA REPRESENTATIVE Impressions 07/29/2024 1:04 PM AREA REPRESENTATIVE 1. ??Moderate discontinuous atherosclerotic calcifications involve the [...] Teresa Rivera M.D. Narrative 07/29/2024 1:04 PM AREA REPRESENTATIVE EXAMINATION: ??Computed tomography of the abdomen and [...] signed by: Maria Teresa Rivera M.D. 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 Electronically signed by: Julio Pinedo M.D. Narrative 07/29/2024 12:59 PM AREA REPRESENTATIVE EXAMINATION: XR ORTHOPANTOGRAM/PANOREX HISTORY: Kidney Transplant Evaluation [...] * Type and screen (07/29/2024 11:23 AM AREA REPRESENTATIVE) Maribel, indirect Negative ABO Rh A Positive [facility] Blood 07/29/2024 11:2 3 AM AREA REPRESENTATIVE 07/29/2024 11:43 AM AREA REPRESENTATIVE Narrative [facility] - 07/29/2024 12:45 PM AREA REPRESENTATIVE Please draw the ABO and the Type and Screen as two separate blood draws with each stamped with the two different times stamps as this is a regulatory requirement for this patient to be listed for Kidney Transplant. ??This lab is being obtained as part of a Kidney transplant evaluation, is time sensitive, and should only be drawn during the evaluation visit at [facility]. Has the patient had Daratumumab or Isatuximab in the past 6 months?->Unknown Jossie King MD LAB BLOOD BANK ERNESTO T ORDERABLES Final Result [facility] Department [place] [address] * ECG 12 lead (07/29/2024 11:14 AM AREA REPRESENTATIVE) Ventricular Rate EKG/Min 117 BPM [facility] Atrial Rate 117 BPM [facility] OR-Interval (MSEC) 144 ms [facility] QRS-Interval (MSEC) 126 ms [facility] QT-Interval (MSEC) 366 ms [facility] QTc 510 ms [facility] R [place] -40 degrees [facility] T [place] 147 degrees [facility] Diagnosis Poor data quality, interpretation [...] Inferior leads Confirmed by FERDINAND SAL M.D ([id number]) on 07/29/2024 3:38:41 PM [facility] 07/29/2024 11:1 4 AM AREA REPRESENTATIVE 07/29/2024 3:38 PM AREA REPRESENTATIVE Jossie King MD ECG ORDERABLES Fi nal Result [facility] * ABO/Rh (07/29/2024 11:13 AM AREA REPRESENTATIVE) Pathologist [facility] [place] ABO Rh A Positive Blood 07/29/2024 11:1 3 AM AREA REPRESENTATIVE 07/29/2024 2:45 PM AREA REPRESENTATIVE Jossie King MD LAB BLOOD BANK ERNESTO T ORDERABLES Final Result [facility] Department [place] [address] * LR HLA Typing (Class I and Class II) (07/29/2024 11:01 AM AREA REPRESENTATIVE) r-SSO [facility] A [place] A*03 [facility] [...] 07/30/24 [facility] Blood 07/29/2024 11:0 1 AM AREA REPRESENTATIVE 08/02/2024 9:03 AM AREA REPRESENTATIVE Narrative [facility] - 08/02/2024 9:03 AM [facility] DNA was extracted from whole blood or buccal cell specimens, and relevant genomic regions were amplified by polymerase chain reactions (PCR). HLA typing was performed on PCR amplicons using reverse sequence-specific oligonucleotide (r-SSO) and/or sequence-specific primers (SSP) based techniques. r-SSO and SSP are FDA approved as IVD tests and validated by the [facility]. Testing performed at the [facility], [address] [place] [address], 5th floor, [place], [address]. [place] # [id number]. Dorothy Meade, Ph.D., [place], HLA Laboratory Rell Samuels M.D., Ph.D., Shank Stitcher, HLA Laboratory Licha Nieto, Ph.D., KIARRA Shank Stitcher, [facility] Current methodology comment last revised on 04/25/17. Jossie King MD LAB BLOOD ORDERABL ES Final Result Performing Organization Address [facility] Co de Phone Number [facility] * Collection Task for HLA Typing 1 (07/29/2024 11:01 AM AREA REPRESENTATIVE) HLA Class I DNA (ABC) Recipient Received Blood 07/29/2024 11:0 1 AM AREA REPRESENTATIVE 07/29/2024 11:56 AM AREA REPRESENTATIVE Jossie King MD LAB BLOOD ORDERABL ES Final Result Performing Organization Address [facility] Co de Phone Number [facility] Department [place] [address] * Collection Task for HLA Antibody Screen (07/29/2024 11:01 AM AREA REPRESENTATIVE) Pathologist [facility] [place] HLA Antibody Screen By Single Antigen Received Blood 07/29/2024 11:0 1 AM AREA REPRESENTATIVE 07/29/2024 11:56 AM AREA REPRESENTATIVE Jossie King MD LAB BLOOD ORDERABL ES Final Result Performing Organization Address [facility] de Phone Number [facility] [place] [address] * Collection Task for HLA Typing 2, Patient (07/29/2024 11:01 AM AREA REPRESENTATIVE) HLA Class II DNA (DR, DQ, DP) Recipient Received Blood 07/29/2024 11:0 1 AM AREA REPRESENTATIVE 07/29/2024 11:56 AM AREA REPRESENTATIVE Jossie King MD LAB BLOOD ORDERABL ES Final Result Performing Organization Address [facility]/ZIP Co de Phone Number ALESSANDRA CARR[facility] Department [place] [address] * (ABNORMAL) eGFR (07/29/2024 11:01 AM AREA REPRESENTATIVE) [facility] eGFR 7(L) >=60 mL/min/1. 73 m2 Comment: [...] reviewed 2021. Blood 07/29/2024 11:0 1 AM AREA REPRESENTATIVE 07/29/2024 11:33 AM AREA REPRESENTATIVE us Jossie King MD LAB BLOOD ORDERABL ES Final Result Performing Organization Address City/[facility] Co de Phone Number ALESSANDRA CARRION [facility] Department [place] [address] * Differential, auto (07/29/2024 11:01 AM AREA REPRESENTATIVE) Neutrophil abs 3.1 1.5 - 6.5 K/cumm Imm gran abs 0.0 0.0 - 0.1 K/cumm [facility] Lymphocyte abs 1.1 0.8 - 3.3 K/cumm [facility] Monocyte abs 0.7 0.2 - 0.8 K/cumm [facility] Eosinophil abs 0.2 0.0 - 0.5 K/cumm [facility] Basophil abs 0.0 0.0 - 0.1 K/cumm [facility] Neutrophil pct 60.3 % [facility] Comment: Interpretive Data Percent cell count reference ranges are not reported, since discordance with absolute values may lead to misinterpretation of CBC data. Current Interpretive Data was last revised on 2017. Imm gran pct 0.6 % [facility] Comment: Interpretive Data Percent cell count reference ranges are not reported, since discordance with absolute values may lead to misinterpretation of CBC data. Current Interpretive Data was last revised on 2017. Lymphocyte pct 21.4 % [facility] Comment: Interpretive Data Percent cell count reference ranges are not reported, since discordance with absolute values may lead to misinterpretation of CBC data. Current Interpretive Data was last revised on 2017. Monocyte pct 13.7 % [facility] Comment: Interpretive Data Percent cell count reference ranges are not reported, since discordance with absolute values may lead to misinterpretation of CBC data. Current Interpretive Data was last revised on 2017. Eosinophil pct 3.2 % [facility] Comment: Interpretive Data Percent cell count reference ranges are not reported, since discordance with absolute values may lead to misinterpretation of CBC data. Current Interpretive Data was last revised on 2017. Basophil pct 0.8 % [facility] Comment: Interpretive Data Percent cell count reference ranges are not reported, since discordance with absolute values may lead to misinterpretation of CBC data. Current Interpretive Data was last revised on 2017. Blood 07/29/2024 11:0 1 AM AREA REPRESENTATIVE 07/29/2024 11:34 AM AREA REPRESENTATIVE Jossie King MD LAB BLOOD ORDERABL ES Final Result Performing Organization Address [facility] de Phone Number [facility] Department [place] [address] * PSA screen (07/29/2024 11:01 AM AREA REPRESENTATIVE) PSA-Total 0.55 <=3.90 ng/mL Comment: Interpretive Data [...] revised 21. Blood 07/29/2024 11:0 1 AM AREA REPRESENTATIVE 07/29/2024 11:33 AM AREA REPRESENTATIVE Narrative [facility] - 07/29/2024 12:39 PM AREA REPRESENTATIVE This lab is being obtained as part of a Kidney transplant evaluation, is time sensitive, and should only be drawn during the evaluation visit at [facility]. us Jossie King MD LAB BLOOD ORDERABL ES Final Result Performing Organization Address [facility] Co de Phone Number [facility]ANDRA [facility] Department [place] [address] * (ABNORMAL) Iron profile w/ IBC (07/29/2024 11:01 AM AREA REPRESENTATIVE) [facility] Iron 62 50 - 150 mcg/dL TIBC 208(L) 250 - 400 mcg/dL [facility] Transferrin saturation 30 20 - 50 % [facility] Blood 07/29/2024 11:0 1 AM AREA REPRESENTATIVE 07/29/2024 11:33 AM AREA REPRESENTATIVE Narrative [facility] - 07/29/2024 12:10 PM AREA REPRESENTATIVE This lab is being obtained as part of a Kidney transplant evaluation, is time sensitive, and should only be drawn during the evaluation visit at [address] Lab[address] Jossie King MD LAB BLOOD ORDERABL ES Final Result [facility] Department [place] [address] * HIV 1/2 Antibody plus p24 Antigen Blood (07/29/2024 11:01 AM AREA REPRESENTATIVE) [facility] HIV 1/2 ab + p24 ag Nonreactive Nonreactive Comment:Nonreactive for HIV- 1 antigen and HIV-1/HIV-2 antibodies. No laboratory evidence of HIV infection. If acute HIV infection is suspected, consider testing for HIV-1 RNA. Current interpretive data was last revised on 22. Blood 07/29/2024 11:0 1 AM AREA REPRESENTATIVE 07/29/2024 11:32 AM AREA REPRESENTATIVE Narrative [facility] - 07/29/2024 12:13 PM AREA REPRESENTATIVE This lab is being obtained as part of a Kidney transplant evaluation, is time sensitive, and should only be drawn during the evaluation visit at [address] Jossie King MD LAB MICROBIOLOGY - GENERAL ORDERABLES Final Result [facility] Department [place] [address] * (ABNORMAL) CMV, IgG Blood (07/29/2024 11:01 AM AREA REPRESENTATIVE) [facility] CMV IgG Positive( A) Negative Comment: Interpretive [...] CMV infection. Blood 07/29/2024 11:0 1 AM AREA REPRESENTATIVE 07/29/2024 11:33 AM AREA REPRESENTATIVE Narrative [facility] - 07/29/2024 1:44 PM AREA REPRESENTATIVE This lab is being obtained as part of a Kidney transplant evaluation, is time sensitive, and should only be drawn during the evaluation visit at [facility]. Jossie King MD LAB MICROBIOLOGY - GENERAL ORDERABLES Final Result [facility] Department [place] [address] * HLA Antibody Screen - SAB (Class I and Class II) (07/29/2024 11:01 AM AREA REPRESENTATIVE) Class I Treatment EDTA HISTOTRAC Class I [...] DR52 H[facility]OTRAC Blood 07/29/2024 11:0 1 AM AREA REPRESENTATIVE 08/02/2024 9:46 AM AREA REPRESENTATIVE Narrative [facility] - 08/02/2024 9:46 AM AREA REPRESENTATIVE Single-antigen HLA antibody screen is performed on serum samples using a method developed and validated by the [facility] laboratory based on an FDA-approved IVD kit (LABScreen Single-Antigen, [employer], [place], [place]). All patient serum samples are pretreated with EDTA before the screen to prevent complement interference. Additional serum treatments, such as adsorption and DTT treatment, may be performed as indicated. ??Interpretive comments: Low risk: MFI [id number]. Moderate risk: MFI 4392-1796. Increased risk: MFI >/= 5000. The presence [...] antigens to avoid. Testing performed at the [facility], [address] [place] [address], 5th floor, [place], [address]. [place] # [id number]. Dorothy Meade, Ph.D., [place], HLA Laboratory Rell Samuels M.D., Ph.D., Shank Stitcher, HLA Laboratory Licha Nieto, Ph.D., CLIA [facility] Stitcher, [facility] Current methodology and interpretive comments last revised on 09/15/2022. us Jossie King MD LAB BLOOD ORDERABL ES Final Result [facility] * (ABNORMAL) CBC with auto differential (07/29/2024 11:01 AM AREA REPRESENTATIVE) [facility] WBC 5.1 3.8 - 9.9 K/cumm Hgb 11.5(L) 13.0 - 17.5 g/dL [facility] Hct 34.4(L) 38.9 - 50.3 % [facility] Plt 208 150 - 400 K/cumm [facility] MPV 10.8 9.1 - 12.3 fL [facility] RBC 3.76(L) 4.30 - 5.80 M/cumm [facility] MCV 91.5 81.3 - 96.4 fL [facility] MCH 30.6 27.1 - 33.3 pg [facility] MCHC 33.4 32.3 - 35.7 g/dL [facility] RDW CV 14.3 11.1 - 14.9 % [facility] RDW SD 47.9 35.7 - 48.1 fL [facility] NRBC abs 0.00 0.00 - 0.01 K/cumm [facility] Blood 07/29/2024 11:0 1 AM AREA REPRESENTATIVE 07/29/2024 11:34 AM AREA REPRESENTATIVE Narrative [facility] - 07/29/2024 11:45 AM AREA REPRESENTATIVE This lab is being obtained as part of a Kidney transplant evaluation, is time sensitive, and should only be drawn during the evaluation visit at [facility] Lab. us Jossie King MD LAB BLOOD ORDERABL ES Final Result [facility] Department [place] [address] * Hepatitis C antibody Blood (07/29/2024 11:01 AM AREA REPRESENTATIVE) [facility] Hep C Ab Nonreactive Nonreactive Comment:Antibodies to HCV no t detected. Does NOT exclude the possibility of recent exposure to HCV. Current interpretive data was last revised on 22 Blood 07/29/2024 11:0 1 AM AREA REPRESENTATIVE 07/29/2024 11:32 AM AREA REPRESENTATIVE Narrative [facility] - 07/29/2024 12:47 PM AREA REPRESENTATIVE This lab is being obtained as part of a Kidney transplant evaluation, is time sensitive, and should only be drawn during the evaluation visit at [address] Jossie King MD LAB MICROBIOLOGY - GENERAL ORDERABLES Final Result Performing Organization Address [facility] Co de Phone Number [facility] [employer] [place] [address] * (ABNORMAL) Madiha-Morris virus (EBV) antibody panel Blood (07/29/2024 11:01 AM AREA REPRESENTATIVE) [facility] EBV nuclear Ab Positive(A) Negative Comment:Indicates the presen ce of detectable IgG antibody to EBV Nuclear Antigen. EBV VCA IgG Positive(A) Negative [facility] Comment:Indicates the presen ce of antibody; 90% of the adult population will have been infected with EBV sometime in the past. EBV VCA IgM Negative Negative [facility] Comment:No detectable IgM an tibody to EBV-VCA. A negative result indicates no current infection with EBV. If clinical suspicion of acute EBV infection is present, testing should be repeated after one week. EBV interp Past Infection [facility] Blood 07/29/2024 11:0 1 AM AREA REPRESENTATIVE 07/29/2024 11:33 AM AREA REPRESENTATIVE Narrative [facility] - 07/29/2024 1:43 PM AREA REPRESENTATIVE This lab is being obtained as part of a Kidney transplant evaluation, is time sensitive, and should only be drawn during the evaluation visit at [address] Jossie King MD LAB MICROBIOLOGY - GENERAL ORDERABLES Final Result Performing Organization Address [facility] Co de Phone Number [facility] [employer] [place] [address] * Hepatitis B core antibody, total Blood (07/29/2024 11:01 AM AREA REPRESENTATIVE) [facility] Hep B core IgG/IgM Nonreactive Nonreactive Blood 07/29/2024 11:0 1 AM AREA REPRESENTATIVE 07/29/2024 11:32 AM AREA REPRESENTATIVE Narrative [facility] - 07/29/2024 12:47 PM AREA REPRESENTATIVE This lab is being obtained as part of a Kidney transplant evaluation, is time sensitive, and should only be drawn during the evaluation visit at [address] Jossie King MD LAB MICROBIOLOGY - GENERAL ORDERABLES Final Result Performing Organization Address [facility] de Phone Number [facility] [place] [address] * Protein, urine, random (07/29/2024 11:01 AM AREA REPRESENTATIVE) Protein, ur, quant 121.2 mg/dL Comment: Interpretive Data No reference range established. Current interpretive data was last revised 2019. Urine 07/29/2024 11:0 1 AM AREA REPRESENTATIVE 07/29/2024 11:32 AM AREA REPRESENTATIVE Narrative [facility] 07/29/2024 12:18 PM AREA REPRESENTATIVE This lab is being obtained as part of a Kidney transplant evaluation, is time sensitive, and should only be drawn during the evaluation visit at [address] Jossie King MD LAB URINE ORDERABL ES Final Result Performing Organization Address [facility] [place] [address] * Creatinine, urine, random (07/29/2024 11:01 AM AREA REPRESENTATIVE) Creatinine Ur 167.1 mg/dL Comment: Interpretive Data No reference range established. Current interpretive data was last revised 2019. Urine 07/29/2024 11:0 1 AM AREA REPRESENTATIVE 07/29/2024 11:32 AM AREA REPRESENTATIVE Narrative [facility] 07/29/2024 12:18 PM AREA REPRESENTATIVE This lab is being obtained as part of a Kidney transplant evaluation, is time sensitive, and should only be drawn during the evaluation visit at [facility] Lab. Jossie King MD LAB URINE ORDERABL ES Final Result Performing Organization Address City/[facility]/ZIP Co de Phone Number [facility] [place] [address] * HSV 2 IgG Antibody Blood (07/29/2024 11:01 AM AREA REPRESENTATIVE) HSV 2 IgG Nonreactive Nonreactive Comment: Interpretive Data 1. Nonreactive: No detectable IgG antibody to HSV-2. 2. Equivocal: Presence or absence of detectable antibodies to HSV-2 cannot be determined and the test should be repeated. 3. Reactive: Indicates presence of detectable IgG antibody to HSV-2. Current interpretive data was last revised on 2022. Blood 07/29/2024 11:0 1 AM AREA REPRESENTATIVE 07/29/2024 11:33 AM AREA REPRESENTATIVE Narrative [facility] - 07/29/2024 1:44 PM AREA REPRESENTATIVE This lab is being obtained as part of a Kidney transplant evaluation, is time sensitive, and should only be drawn during the evaluation visit at [address] Lab. Jossie King MD LAB MICROBIOLOGY - GENERAL ORDERABLES Final Result Performing Organization Address [facility] Co de Phone Number [facility] Department [place] [address] * (ABNORMAL) HSV 1 IgG Antibody Blood (07/29/2024 11:01 AM AREA REPRESENTATIVE) Pathologist [facility] [place] HSV 1 IgG Reactive( A) Nonreactive Comment: Interpretive Data 1. Nonreactive: No detectable IgG antibody to HSV-1. 2. Equivocal: Presence or absence of detectable antibodies to HSV-1 cannot be determined and the test should be repeated. 3. Reactive: Indicates presence of detectable IgG antibody to HSV-1. Current interpretive data was last revised on 2016. Blood 07/29/2024 11:0 1 AM AREA REPRESENTATIVE 07/29/2024 11:33 AM AREA REPRESENTATIVE Narrative [facility] - 07/29/2024 1:44 PM AREA REPRESENTATIVE This lab is being obtained as part of a Kidney transplant evaluation, is time sensitive, and should only be drawn during the evaluation visit at [address]. Jossie King MD LAB MICROBIOLOGY - GENERAL ORDERABLES Final Result Performing Organization Address City/[facility] Co de Phone Number [facility] [place] [address] * RPR Blood (07/29/2024 11:01 AM AREA REPRESENTATIVE) RPR Nonreactive Nonreactive Blood 07/29/2024 11:0 1 AM AREA REPRESENTATIVE 07/29/2024 11:33 AM AREA REPRESENTATIVE Narrative [facility] - 07/29/2024 12:34 PM AREA REPRESENTATIVE This lab is being obtained as part of a Kidney transplant evaluation, is time sensitive, and should only be drawn during the evaluation visit at [address] Result [facility] Jossie King MD LAB MICROBIOLOGY - GENERAL ORDERABLES Final Result Performing Organization Address [facility] de Phone Number [facility] Department [place] [address] * Hepatitis B surface antibody (immune status) Blood (07/29/2024 11:01 AM AREA REPRESENTATIVE) Pathologist [facility] [place] HBsAb (immune status) Reactive Comment:This result is consi stent with immunity to Hepatitis B Virus when used in the setting of routine screening. Current interpretive data was last revised on 22 Blood 07/29/2024 11:0 1 AM AREA REPRESENTATIVE 07/29/2024 11:32 AM AREA REPRESENTATIVE Narrative [facility] - 07/29/2024 12:47 PM AREA REPRESENTATIVE This lab is being obtained as part of a Kidney transplant evaluation, is time sensitive, and should only be drawn during the evaluation visit at [address]. Jossie King MD LAB MICROBIOLOGY - GENERAL ORDERABLES Final Result Performing Organization Address City/[facility] Co de Phone Number [facility] Department [place] [address] * Hepatitis B Surface Antigen Blood (07/29/2024 11:01 AM AREA REPRESENTATIVE) [facility] HepBsAg Nonreactive Nonreactive Blood 07/29/2024 11:0 1 AM AREA REPRESENTATIVE 07/29/2024 11:32 AM AREA REPRESENTATIVE Narrative [facility] - 07/29/2024 12:47 PM AREA REPRESENTATIVE This lab is being obtained as part of a Kidney transplant evaluation, is time sensitive, and should only be drawn during the evaluation visit at [address] Lab[address] Jossie King MD LAB MICROBIOLOGY - GENERAL ORDERABLES Final Result Performing Organization Address [facility] [place] [address] * (ABNORMAL) aPTT (07/29/2024 11:01 AM AREA REPRESENTATIVE) [facility] aPTT 61(H) 28 - 38 sec Comment: Interpretive Data Heparin therapeutic range: 66.0 - 100.0 seconds. Range based on correlation with therapeutic heparin activity range of 0.3 - 0.7 Units/mL. Current interpretive data was last revised on 2023. Blood 07/29/2024 11:0 1 AM AREA REPRESENTATIVE 07/29/2024 11:32 AM AREA REPRESENTATIVE Narrative [facility] - 07/29/2024 11:42 AM AREA REPRESENTATIVE This lab is being obtained as part of a Kidney transplant evaluation, is time sensitive, and should only be drawn during the evaluation visit at [address] Lab[address] Jossie King MD LAB BLOOD ORDERABL ES Final Result Performing Organization Address City/[facility]/ZIP Co de Phone Number [facility] [place] [address] * (ABNORMAL) Protime-INR (07/29/2024 11:01 AM AREA REPRESENTATIVE) [facility] PT 50.6(H) 9.7 - 13.0 sec INR 4.54(H) 0.90 - 1.20 [facility] Comment: Interpretive data Oral anticoagulant therapeutic ranges: Venous thromboembolism prophylaxis or treatment: 2.0-3.0 CARDIOLOGY Standard range: 2.0-3.0 High-intensity range: 2.5-3.5 Refer to indication-specific guidelines for appropriate target ranges for prosthetic heart valve replacement. Current interpretive data was last revised on 2019. Blood 07/29/2024 11:0 1 AM AREA REPRESENTATIVE 07/29/2024 11:32 AM AREA REPRESENTATIVE Narrative [facility] - 07/29/2024 11:42 AM AREA REPRESENTATIVE This lab is being obtained as part of a Kidney transplant evaluation, is time sensitive, and should only be drawn during the evaluation visit at [address] Lab[address] Jossie King MD LAB BLOOD ORDERABL ES Final Result Performing Organization Address [facility] de Phone Number [facility] Department [place] [employer] [place] [address] * Varicella Zoster IgG antibody Blood (07/29/2024 11:01 AM AREA REPRESENTATIVE) [facility] VZV IgG Reactive Reactive Comment:Reactive: Results diego ggest response to immunization or prior exposure to the virus. Blood 07/29/2024 11:0 1 AM AREA REPRESENTATIVE 07/29/2024 11:33 AM AREA REPRESENTATIVE Narrative [facility] 07/29/2024 1:45 PM AREA REPRESENTATIVE This lab is being obtained as part of a Kidney transplant evaluation, is time sensitive, and should only be drawn during the evaluation visit at [address]. Jossie King MD LAB MICROBIOLOGY - GENERAL ORDERABLES Final Result Performing Organization Address [facility] Co de Phone Number [facility] Department [place] [address] * (ABNORMAL) Uric acid (07/29/2024 11:01 AM AREA REPRESENTATIVE) [facility] Uric acid 2.0(L) 3.0 - 8.0 mg/dL Blood 07/29/2024 11:0 1 AM AREA REPRESENTATIVE 07/29/2024 11:33 AM AREA REPRESENTATIVE Narrative [facility] - 07/29/2024 12:10 PM AREA REPRESENTATIVE This lab is being obtained as part of a Kidney transplant evaluation, is time sensitive, and should only be drawn during the evaluation visit at [address] Jossie King MD LAB BLOOD ORDERABL ES Final Result Performing Organization Address [facility] de Phone Number [facility] [place] [address] * (ABNORMAL) Phosphorus (07/29/2024 11:01 AM AREA REPRESENTATIVE) [facility] Phosphorus, pl 5.1(H) 2.3 - 4.5 mg/dL Blood 07/29/2024 11:0 1 AM AREA REPRESENTATIVE 07/29/2024 11:33 AM AREA REPRESENTATIVE Narrative [facility] 07/29/2024 12:10 PM AREA REPRESENTATIVE This lab is being obtained as part of a Kidney transplant evaluation, is time sensitive, and should only be drawn during the evaluation visit at [address]. Jossie King MD LAB BLOOD ORDERABL ES Final Result Performing Organization Address [facility] de Phone Number [facility] Department [place] [address] * (ABNORMAL) PTH (07/29/2024 11:01 AM AREA REPRESENTATIVE) [facility] PTH 444(H) 15 - 65 pg/mL Blood 07/29/2024 11:0 1 AM AREA REPRESENTATIVE 07/29/2024 11:34 AM AREA REPRESENTATIVE Narrative [facility] - 07/29/2024 12:02 PM AREA REPRESENTATIVE This lab is being obtained as part of a Kidney transplant evaluation, is time sensitive, and should only be drawn during the evaluation visit at [address]. Result [facility] Jossie King MD LAB BLOOD ORDERABL ES Final Result Performing Organization Address [facility] Co de Phone Number [facility] [place] [address] * (ABNORMAL) Hemoglobin A1c (07/29/2024 11:01 AM AREA REPRESENTATIVE) Pathologist [facility] [place] Hgb A1C 9.0(H) 4.0 - 5.6 % Estimated Average Glucose 212 mg/dL [facility] Comment: The ADA recommends reporting an estimated Average Glucose (eAG) with all Hemoglobin A1c results using the equation derived from a study of 507 normal and diabetic adults. ??Minority populations were underrepresented and children were not included. ?? (Diabetes Care 2020; 43(S1): S66-S76). ??The eAG is not equivalent to a fasting glucose. Blood 07/29/2024 11:0 1 AM AREA REPRESENTATIVE 07/29/2024 11:34 AM AREA REPRESENTATIVE Narrative [facility] - 07/29/2024 11:53 AM AREA REPRESENTATIVE This lab is being obtained as part of a Kidney transplant evaluation, is time sensitive, and should only be drawn during the evaluation visit at [address]. Result [facility] Jossie King MD LAB BLOOD ORDERABL ES Final Result Performing Organization Address [facility] de Phone Number [facility] [employer] [place] [address] * Gamma GT (07/29/2024 11:01 AM AREA REPRESENTATIVE) Pathologist [facility] [place] GGT 22 10 - 50 Units/L Blood 07/29/2024 11:0 1 AM AREA REPRESENTATIVE 07/29/2024 11:33 AM AREA REPRESENTATIVE Narrative [facility] - 07/29/2024 12:40 PM AREA REPRESENTATIVE This lab is being obtained as part of a Kidney transplant evaluation, is time sensitive, and should only be drawn during the evaluation visit at [address] Jossie King MD LAB BLOOD ORDERABL ES Final Result Performing Organization Address [facility] [place] [address] * (ABNORMAL) Ferritin (07/29/2024 11:01 AM AREA REPRESENTATIVE) Pathologist [facility] [place] Ferritin 761(H) 30 - 400 ng/mL Blood 07/29/2024 11:0 1 AM AREA REPRESENTATIVE 07/29/2024 11:33 AM AREA REPRESENTATIVE Narrative [facility] - 07/29/2024 12:10 PM AREA REPRESENTATIVE This lab is being obtained as part of a Kidney transplant evaluation, is time sensitive, and should only be drawn during the evaluation visit at [facility]. Jossie King MD LAB BLOOD ORDERABL ES Final Result Performing Organization Address [facility] de Phone Number [facility] [place] [address] * (ABNORMAL) Lipid panel (07/29/2024 11:01 AM AREA REPRESENTATIVE) Pathologist [facility] [place] Cholesterol 114 30 - 199 mg/dL Comment: [...] on 2018. Triglycerides 66 <=149 mg/dL [facility] Comment: Interpretive Data Ages < or [...] revised on 2018. HDL 29(L) >=40 mg/dL [facility] Comment: Interpretive Data Ages < or [...] 2018. LDL, calculated 71 <=129 mg/dL [facility] Comment: Interpretive Data Ages [...] revised on 2024. Non-HDL Cholesterol 85 mg/dL [facility] Comment: Interpretive Data Ages < or [...] revised on 2018. Chol/HDL ratio 4 [facility] Blood 07/29/2024 11:0 1 AM AREA REPRESENTATIVE 07/29/2024 11:33 AM AREA REPRESENTATIVE Narrative [facility] - 07/29/2024 12:10 PM AREA REPRESENTATIVE This lab is being obtained as part of a Kidney transplant evaluation, is time sensitive, and should only be drawn during the evaluation visit at [facility] Lab. us Jossie King MD LAB BLOOD ORDERABL ES Final Result [facility] Department [place] [address] * (ABNORMAL) Comprehensive metabolic panel (07/29/2024 11:01 AM AREA REPRESENTATIVE) Sodium 136 135 - 145 mmol/L Potassium, pl 4.6 3.3 - 4.9 mmol/L [facility] Chloride 93(L) 97 - 110 mmol/L [facility] CO2 26 22 - 32 mmol/L [facility] Anion gap 17(H) 2 - 15 mmol/L [facility] BUN 65(H) 6 - 25 mg/dL [facility] Creatinine 8.07(H) 0.80 - 1.30 mg/dL [facility] Glucose 280(H) 70 - 199 mg/dL [facility] Comment: Interpretive Data Fasting glucose >/= [...] Calcium 9.4 8.5 - 10.3 mg/dL [facility] Bilirubin, total 0.3 0.1 - 1.2 mg/dL [facility] Protein, pl 7.2 6.5 - 8.5 g/dL [facility] Albumin 3.8 3.5 - 5.0 g/dL [facility] Alk phos 99 40 - 130 Units/L [facility] ALT 30 7 - 55 Units/L [facility] AST 31 10 - 50 Units/L [facility] Blood 07/29/2024 11:0 1 AM AREA REPRESENTATIVE 07/29/2024 11:33 AM AREA REPRESENTATIVE Narrative [facility] - 07/29/2024 12:10 PM AREA REPRESENTATIVE This lab is being obtained as part of a Kidney transplant evaluation, is time sensitive, and should only be drawn during the evaluation visit at [facility]. Jossie King MD LAB BLOOD ORDERABL ES Final Result Performing Organization Address City/[facility]/ZIP Co de Phone Number [facility] C[facility] Department [place] [address] * (ABNORMAL) Oxalate (oxalic acid) (07/29/2024 10:53 AM AREA REPRESENTATIVE) Oxalate 12.3(H) <=2.0 mcmol/L [facility] Comment: High value suggestive of Primary Hyperoxaluria. However, if the patient has chronic kidney disease (GFR<30 mL/min/1.73m2), plasma oxalate values up to 30 mcmol/L can be normal. The [facility] Hyperoxaluria Center is available to review case details and answer any questions regarding interpretation ([email or web address]; [phone]) ADDITIONAL INFORMATION This test has been modified from the personal insurance advisor's instructions. Its performance characteristics were determined by [facility] in a manner consistent with CLIA requirements. This test has not been cleared or approved by the U.S. Food and Drug Administration. Test Performed by: [facility] [address] [address] Data Management Consultant: Jairo Higgins Ph.D.; CLIA# [id number] Blood 07/29/2024 10:5 3 AM AREA REPRESENTATIVE 07/29/2024 11:37 AM AREA REPRESENTATIVE us Jossie King MD LAB BLOOD ORDERABL ES Final Result [facility] CARRION [facility] Department [place] [address] [place] [facility] * (ABNORMAL) Urinalysis reflex to microscopic (07/29/2024 10:53 AM AREA REPRESENTATIVE) Color, ur Yellow Yellow Clarity, ur Cloudy(A) Clear [facility] Specific gravity, ur 1.022 1.003 - 1.030 [facility] pH, urine 6.0 [facility] Comment: Interpretive Data ? Urine pH is affected by diet, medications, systemic acid-base disturbances, and renal tubular function. ??pH may affect urinary stone formation. ??For example, urine pH below 6.0 may help reduce the tendency for calcium phosphate stones and pH greater than 6.0 may reduce the tendency for uric acid stone formation. Source: [facility] Current Interpretive Data was last revised on 2017 Protein, ur ql 2+(A) Negative [facility] Glucose, ur ql 4+(A) Negative [facility] Ketones, ur Negative Negative [facility] Bilirubin, ur Negative Negative [facility] Blood, ur 3+(A) Negative [facility] Urobilinogen, ur <2.0 <2.0 mg/dL [facility] Nitrite, ur Negative Negative [facility] Leukocyte esterase, ur 2+(A) Negative [facility] UA reflex comment Reflex to microscopic UA will be performed. [facility] Urine 07/29/2024 10:5 3 AM AREA REPRESENTATIVE 07/29/2024 11:27 AM AREA REPRESENTATIVE Narrative [facility] - 07/29/2024 11:29 AM AREA REPRESENTATIVE This lab is being obtained as part of a Kidney transplant evaluation, is time sensitive, and should only be drawn during the evaluation visit at [facility] Lab. us Jossie King MD LAB URINE ORDERABL ES Final Result [facility] Department [place] [address] * (ABNORMAL) Urinalysis, microscopic only (07/29/2024 10:53 AM AREA REPRESENTATIVE) WBC, ur 21-50(A) 0 - 5 /HPF RBC, ur >50(A) 0 - 2 /HPF [facility] Epithelial cells, squamous, ur 1-5 0 - 5 /HPF [facility] Bacteria, ur Trace(A) [facility] Mucous, ur Present(A) [facility] Hyaline casts, ur 1-5 0 - 10 /LPF [facility] Urine 07/29/2024 10:5 3 AM AREA REPRESENTATIVE 07/29/2024 11:27 AM AREA REPRESENTATIVE us Jossie King MD LAB URINE ORDERABL ES Final Result Performing Organization Address City/[facility]/ZIP Co de Phone Number [facility] Department [place] [address] * Cardiology Document Scan (06/07/2024 11:10 AM CDT) Anatomical Region Laterality Modality Other us Karen Barnes NP CV CARDIAC SERVICES PROCEDUR ES Final Result * (ABNORMAL) TSH (10/27/2023 2:30 AM AREA REPRESENTATIVE) Thyroid Stimulating Hormone 13.20(H) 0.30 - 4.20 mcIUnit/mL Blood 10/27/2023 2:30 AM AREA REPRESENTATIVE 10/27/2023 2:42 AM AREA REPRESENTATIVE us Lorne Mcnulty MD LAB BLOOD ORDERABLES Final Result [facility] [address] Department [place] [address] from Last 3 Months or Most Recently Relevant to Health Maintenance
--- OUTSIDE RECORDS SUMMARY | 2024-09-07 19:13 | XMS_ITS | Encounter Summary ---
Author Organization [facility] Healthcare Address [address] [place] [address] Care Team Providers Care Maxillofacial Pathology Name Role Phone Aditya Castro MD Primary Care Provider [phone] Alondra Lambert RN Unavailable Shannon Brock MD, Hamlet Gordon Unavailable [phone] Encounter Details Date Type Department Care Team (Late st Contact Info) Description 07/22/2024 Telephone [facility] Transplant Kidney [address] [address] Mailstop [phone] [place] [address] Chris Richard Social History Tobacco Use Types [...] materials from doctor or pharmacy Never 12/01/2023 [facility] Utilities Answer Date Recorded In the past 12 months has e [employer], gas, oil, or water company threatened to [...] often do you attend chur ch or congregation services? 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 SHOP WORKER documented in this encounter Plan of Treatment Not on file documented as of this encounter Visit Diagnoses Not on filedocumented in this encounter Care Teams Maxillofacial Pathology Relationship Specialty Start Date End Date Aditya Castro MD [address] [place] [address] PCP - General 10/17/19 Alondra Lambert, RN [address] [facility] [address] [place] [address] Otolaryngology Physician 03/06/24 Hamlet Ortega Jr., MD [address] [place] [address] Consulting Physician Cardiovascular Disease 05/10/24 documented as of this encounter
--- OUTSIDE RECORDS SUMMARY | 2024-09-07 19:13 | XMS_ITS | Encounter Summary ---
Author Organization [facility] Healthcare Address [address] [place] [address] Care Team Providers Care Steel Fitter Name Role Phone Aditya Castro MD Primary Care Provider [phone] Alondra Lambert RN Unavailable [phone] Shannon Brock MD, Hamlet Gordon Unavailable [phone] Encounter Details Date Type Department Care Team (Late st Contact Info) Description 06/28/2024 Telephone [facility] Transplant Kidney [address] [address] Mailstop [phone] [place] [address] Chris Richard Social History Tobacco Use Types [...] materials from doctor or pharmacy Never 12/01/2023 [facility] Utilities Answer Date Recorded In the past 12 months has e [employer], gas, oil, or water company threatened to [...] on file 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 Yovanny can be reached at [phone] ext [phone]. ER BLAST FURNACE documented in this encounter Plan of Treatment Not on file documented as of this encounter Visit Diagnoses Not on filedocumented in this encounter Care Teams Steel Fitter Relationship Specialty Start Date End Date Aditya Castro MD [address] [place] [address] PCP - General 10/17/19 Alondra Lambert, RN [address] [facility] [address] [place] [address] Sucker Machine Operator 03/06/24 Hamlet Ortega Jr., MD [address] [place] [address] Consulting Physician Cardiovascular Disease 05/10/24 documented as of this encounter
--- OUTSIDE RECORDS SUMMARY | 2024-09-07 19:13 | XMS_ITS | Encounter Summary ---
Author Organization [facility] Healthcare Address [address] [place] [address] Care Team Providers Care On Site Services Specialist Name Role Phone Aditya Castro MD Primary Care Provider [phone] Alondra Lambert RN Unavailable [phone] Encounter Details Date Type Department Care Team (Late st Contact Info) Description 04/25/2024 Telephone [facility] Transplant Kidney [address] [facility] [address] Mail[address] [phone] [place] [address] Chris Richard Social History Tobacco Use Types [...] any clubs o r organizations such as methodist groups, unions, fraternal or athletic groups, or [...] file 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 Called back patient at [phone], requesting patient to fax his insurance card front and back toFinance. documented in this encounter Plan of Treatment Not on file documented as of this encounter Visit Diagnoses Not on filedocumented in this encounter Care Teams On Site Services Specialist Relationship Specialty Start Date End Date Aditya Castro MD [address] [facility] [place] [address] PCP - General 10/17/19 Aolndra Lambert, RN [address] [address] Youth Leader 03/06/24 documented as of this encounter
--- OUTSIDE RECORDS SUMMARY | 2024-09-07 19:13 | XMS_ITS | Encounter Summary ---
Author Organization [facility] Healthcare Address [address] [place] [address] Care Team Providers Care Prosthodontist/Educator Name Role Phone Aditya Castro MD Primary Care Provider [phone] Alondra Lambert RN Unavailable [phone] Shannon Brock MD, Hamlet Gordon Unavailable [phone] Encounter Details Date Type Department Care Team (Late st Contact Info) Description 05/10/2024 Telephone [facility] Transplant Kidney [address] [facility] [address] [phone] [place], [place] [id number] Alondra Lambert, RN [address] [facility] [address] [place] [address] [id number] Social History Tobacco Use Types Packs/Day Years [...] materials from doctor or pharmacy Never 12/01/2023 [facility] Utilities Answer Date Recorded In the past [...] often do you attend chur ch or uatsdin services? 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
--- OUTSIDE RECORDS SUMMARY | 2024-09-07 19:13 | XMS_ITS | Encounter Summary ---
Author Organization [facility] Healthcare Address [address] [place] [address] Care Team Providers Care Mechanical Door Repairer Name Role Phone Aditya Castro MD Primary Care Provider [phone] Alondra Lambert RN Unavailable [phone] Shannon Brock MD, [place] Gordon Unavailable [phone] Encounter Details Date Type Department Care Team (Late st Contact Info) Description 07/29/2024 1:15 PM PURCHASING ASSISTANT Lab [facility] ([facility]) [address] [place] [id number] End stage renal disease (CMS/HCC) (HCC); ESRD (end stage renal disease) (CMS/HCC) ([facility]) Social History Tobacco Use Types [...] materials from doctor or pharmacy Never 12/01/2023 [facility] Utilities Answer Date Recorded In the [...] How often do you attend jew or mormon serv ices? Never 08/01/2024 Do you belong [...] in a snf (including now)? No 10/16/2023 Housing Stability Vital Sign Answer Rubens e Recorded In the last 12 months, was t here a time when you were not able to pay the mortgage or rent on time? No 08/01/2024 In the past 12 months, how m any times have you moved where you were living? 1 08/01/2024 [facility] were you [facility] or living in a snf (including now)? No 08/01/2024 Personal Safety Answer Date Recorded Have you ever been in or are you currently in a harmful physical or emotional relationship or is someone making you feel afraid or unsafe? 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 Male 3:42 AM PURCHASING ASSISTANT Gender Identity Not on file Sexual Orientation Not on file documented as of this encounter Plan of Treatment Not on file documented as of this encounter Procedures Procedure Name Priority Date/Time Associated Diagnosis Comments TYPE AND SCREEN Routine 07/29/2024 11:23 AM PURCHASING ASSISTANT End stage renal disease (CMS/HCC) (HCC) ABO/RH Routine 07/29/2024 11:13 AM PURCHASING ASSISTANT LR HLA TYPING (CLASS I AND CLASS II) Routine 07/29/2024 11:01 AM PURCHASING ASSISTANT End stage renal disease (CMS/HCC) (HCC) HLA CLASS I DNA (ABC) RECIPIENT Routine 07/29/2024 11:01 AM PURCHASING ASSISTANT End stage renal disease (CMS/HCC) (HCC) HLA ANTIBODY SCREEN BY SINGLE ANTIGEN Routine 07/29/2024 11:01 AM PURCHASING ASSISTANT End stage renal disease (CMS/HCC) (HCC) HLA CLASS II DNA (DR, DQ, DP) RECIPIENT Routine 07/29/2024 11:01 AM PURCHASING ASSISTANT End stage renal disease (CMS/HCC) (HCC) EGFR Routine 07/29/2024 11:01 AM PURCHASING ASSISTANT End stage renal disease (CMS/HCC) (HCC) DIFFERENTIAL AUTO Routine 07/29/2024 11: 01 AM PURCHASING ASSISTANT End stage renal disease (CMS/HCC) (HCC) PSA SCREEN Routine 07/29/2024 11:01 AM PURCHASING ASSISTANT End stage renal disease (CMS/HCC) (HCC) IRON PROFILE W/ IBC Routine 07/29/2024 1 1:01 AM PURCHASING ASSISTANT End stage renal disease (CMS/HCC) (HCC) HIV 1/2 ANTIBODY PLUS P24 ANTIGEN Routine 07/29/2024 11:01 AM PURCHASING ASSISTANT End stage renal disease (CMS/HCC) (HCC) CMV, IGG Routine 07/29/2024 11:01 AM PURCHASING ASSISTANT End stage renal disease (CMS/HCC) (HCC) HLA ANTIBODY SCREEN - SAB (CLASS I AND CLASS II) Routine 07/29/2024 11:01 AM PURCHASING ASSISTANT End stage renal disease (CMS/HCC) (HCC) CBC WITH AUTO DIFFERENTIAL Routine 07/29/2024 11:01 AM PURCHASING ASSISTANT End stage renal disease (CMS/HCC) (HCC) HEPATITIS C ANTIBODY Routine 07/29/2024 11:01 AM PURCHASING ASSISTANT End stage renal disease (CMS/HCC) (HCC) MADIHA-MORRIS VIRUS VCA ANTIBODY PANEL Routine 07/29/2024 11:01 AM PURCHASING ASSISTANT End stage renal disease (CMS/HCC) (HCC) HEPATITIS B CORE ANTIBODY, TOTAL Routine 07/29/2024 11:01 AM PURCHASING ASSISTANT End stage renal disease (CMS/HCC) (HCC) PROTEIN, URINE, RANDOM Routine 11:01 AM PURCHASING ASSISTANT End stage renal disease (CMS/HCC) (HCC) CREATININE, URINE, RANDOM Routine 07/29/2024 11:01 AM PURCHASING ASSISTANT End stage renal disease (CMS/HCC) (HCC) HSV 2 ANTIBODY, IGG Routine 07/29/2024 1 1:01 AM PURCHASING ASSISTANT End stage renal disease (CMS/HCC) (HCC) HSV 1 ANTIBODY, IGG Routine 07/29/2024 1 1:01 AM PURCHASING ASSISTANT End stage renal disease (CMS/HCC) (HCC) RPR Routine 07/29/2024 11:01 AM PURCHASING ASSISTANT End stage renal disease (CMS/HCC) (HCC) HEPATITIS B SURFACE ANTIBODY (IMMUNE STATUS) Routine 07/29/2024 11:01 AM PURCHASING ASSISTANT End stage renal disease (CMS/HCC) (HCC) HEPATITIS B SURFACE ANTIGEN Routine 07/29/2024 11:01 AM PURCHASING ASSISTANT End stage renal disease (CMS/HCC) (HCC) APTT Routine 07/29/2024 11:01 AM PURCHASING ASSISTANT End stage renal disease (CMS/HCC) (HCC) PROTIME-INR Routine 07/29/2024 11:01 AM PURCHASING ASSISTANT End stage renal disease (CMS/HCC) (HCC) VARICELLA ZOSTER ANTIBODY, IGG Routine 07/29/2024 11:01 AM PURCHASING ASSISTANT End stage renal disease (CMS/HCC) (HCC) URIC ACID Routine 07/29/2024 11:01 AM PURCHASING ASSISTANT End stage renal disease (CMS/HCC) (HCC) PHOSPHORUS Routine 07/29/2024 11:01 AM PURCHASING ASSISTANT End stage renal disease (CMS/HCC) (HCC) PTH Routine 07/29/2024 11:01 AM PURCHASING ASSISTANT End stage renal disease (CMS/HCC) (HCC) HEMOGLOBIN A1C Routine 07/29/2024 11:01 AM PURCHASING ASSISTANT End stage renal disease (CMS/HCC) (HCC) GAMMA GT Routine 07/29/2024 11:01 AM PURCHASING ASSISTANT End stage renal disease (CMS/HCC) (HCC) FERRITIN Routine 07/29/2024 11:01 AM PURCHASING ASSISTANT End stage renal disease (CMS/HCC) (HCC) LIPID PANEL Routine 07/29/2024 11:01 AM PURCHASING ASSISTANT End stage renal disease (CMS/HCC) (HCC) COMPREHENSIVE METABOLIC PANEL Routine 07/29/2024 11:01 AM PURCHASING ASSISTANT End stage renal disease (CMS/HCC) (HCC) OXALATE Routine 07/29/2024 10:53 AM PURCHASING ASSISTANT ESRD (end stage renal disease) (CMS/HCC) (HCC) URINALYSIS AND REFLEX TO MICROSCOPIC Routine 07/29/2024 10:53 AM PURCHASING ASSISTANT End stage renal disease (CMS/HCC) (HCC) URINALYSIS, MICROSCOPIC ONLY Routine 07/29/2024 10:53 AM PURCHASING ASSISTANT End stage renal disease (CMS/HCC) (HCC) documented in this encounter Results * Type and screen (07/29/2024 11:23 AM PURCHASING ASSISTANT) Maribel, indirect Negative ABO Rh A Positive [facility] Blood 07/29/2024 11:2 3 AM PURCHASING ASSISTANT 07/29/2024 11:43 AM PURCHASING ASSISTANT Narrative [facility] - 07/29/2024 12:45 PM PURCHASING ASSISTANT Please draw the ABO and the Type [...] evaluation visit at [facility] Lab. Has the patient had Daratumumab or Isatuximab in the past 6 months?->Unknown Jossie King MD LAB BLOOD BANK ERNESTO T ORDERABLES Final Result Performing Organization Address City/[facility]/ZIP Co de Phone Number ALESSANDRA CARRION Billie [facility] [place] [address] * ABO/Rh (07/29/2024 11:13 AM PURCHASING ASSISTANT) ABO Rh A Positive Blood 07/29/2024 11:1 3 AM PURCHASING ASSISTANT 07/29/2024 2:45 PM PURCHASING ASSISTANT Patrickniraj King MD LAB BLOOD BANK ERNESTO T ORDERABLES Final Result Performing Organization Address [facility] de Phone Number [facility] [place] [address] * (ABNORMAL) eGFR (07/29/2024 11:01 AM PURCHASING ASSISTANT) eGFR 7(L) >=60 mL/min/1. 73 m2 Comment: [...] reviewed 2021. Blood 07/29/2024 11:0 1 AM PURCHASING ASSISTANT 07/29/2024 11:33 AM PURCHASING ASSISTANT us Jossie King MD LAB BLOOD ORDERABL ES Final Result [facility] One [facility] [place] [address] * Differential, auto (07/29/2024 11:01 AM PURCHASING ASSISTANT) Neutrophil abs 3.1 1.5 - 6.5 K/cumm [...] on 2017. Blood 07/29/2024 11:0 1 AM PURCHASING ASSISTANT 07/29/2024 11:34 AM PURCHASING ASSISTANT us Jossie King MD LAB BLOOD ORDERABL ES Final Result [facility] One [facility] [place] [address] * (ABNORMAL) CBC with auto differential (07/29/2024 11:01 AM PURCHASING ASSISTANT) WBC 5.1 3.8 - 9.9 K/cumm Hgb [...] [facility] Blood 07/29/2024 11:0 1 AM PURCHASING ASSISTANT 07/29/2024 11:34 AM PURCHASING ASSISTANT Narrative [facility] - 07/29/2024 11:45 AM PURCHASING ASSISTANT This lab is being obtained as part of a Kidney transplant evaluation, is time sensitive, and should only be drawn during the evaluation visit at [address] Jossie King MD LAB BLOOD ORDERABL ES Final Result Performing Organization Address [facility] de Phone Number [facility] [place] [address] * (ABNORMAL) CMV, IgG Blood (07/29/2024 11:01 AM PURCHASING ASSISTANT) [facility] CMV IgG Positive( A) Negative Comment: [...] CMV infection. Blood 07/29/2024 11:0 1 AM PURCHASING ASSISTANT 07/29/2024 11:33 AM PURCHASING ASSISTANT Narrative [facility] - 07/29/2024 1:44 PM PURCHASING ASSISTANT This lab is being obtained as part of a Kidney transplant evaluation, is time sensitive, and should only be drawn during the evaluation visit at [address] Jossie King MD LAB MICROBIOLOGY - GENERAL ORDERABLES Final Result Performing Organization Address [facility] de Phone Number [facility] [place] [address] * (ABNORMAL) Comprehensive metabolic panel (07/29/2024 11:01 AM PURCHASING ASSISTANT) [facility] Sodium 136 135 - 145 mmol/L [...] [facility] Blood 07/29/2024 11:0 1 AM PURCHASING ASSISTANT 07/29/2024 11:33 AM PURCHASING ASSISTANT Narrative [facility] - 07/29/2024 12:10 PM PURCHASING ASSISTANT This lab is being obtained as part of a Kidney transplant evaluation, is time sensitive, and should only be drawn during the evaluation visit at [facility]. us Jossie King MD LAB BLOOD ORDERABL ES Final Result [facility] One [facility] Department [place] [address] * Creatinine, urine, random (07/29/2024 11:01 AM PURCHASING ASSISTANT) Creatinine Ur 167.1 mg/dL Comment: Interpretive Data No reference range established. Current interpretive data was last revised 2019. Urine 07/29/2024 11:0 1 AM PURCHASING ASSISTANT 07/29/2024 11:32 AM PURCHASING ASSISTANT Narrative [facility] - 07/29/2024 12:18 PM PURCHASING ASSISTANT This lab is being obtained as part of a Kidney transplant evaluation, is time sensitive, and should only be drawn during the evaluation visit at [address] Lab[address] Jossie King MD LAB URINE ORDERABL ES Final Result Performing Organization Address [facility] Co de Phone Number [facility] [place] [address] * (ABNORMAL) Madiha-Morris virus (EBV) antibody panel Blood (07/29/2024 11:01 AM PURCHASING ASSISTANT) [facility] EBV nuclear Ab Positive(A) Negative Comment:Indicates [...] [facility] Blood 07/29/2024 11:0 1 AM PURCHASING ASSISTANT 07/29/2024 11:33 AM PURCHASING ASSISTANT Narrative [facility] - 07/29/2024 1:43 PM PURCHASING ASSISTANT This lab is being obtained as part of a Kidney transplant evaluation, is time sensitive, and should only be drawn during the evaluation visit at [address] Lab[address] Jossie King MD LAB MICROBIOLOGY - GENERAL ORDERABLES Final Result Performing Organization Address City/[facility] Co de Phone Number [facility] [place] [address] * (ABNORMAL) Ferritin (07/29/2024 11:01 AM PURCHASING ASSISTANT) [facility] Ferritin 761(H) 30 - 400 ng/mL Blood 07/29/2024 11:0 1 AM PURCHASING ASSISTANT 07/29/2024 11:33 AM PURCHASING ASSISTANT Narrative [facility] - 07/29/2024 12:10 PM PURCHASING ASSISTANT This lab is being obtained as part of a Kidney transplant evaluation, is time sensitive, and should only be drawn during the evaluation visit at [address] Jossie King MD LAB BLOOD ORDERABL ES Final Result Performing Organization Address [facility] Co de Phone Number [facility] [place] [address] * Gamma GT (07/29/2024 11:01 AM PURCHASING ASSISTANT) [facility] GGT 22 10 - 50 Units/L Blood 07/29/2024 11:0 1 AM PURCHASING ASSISTANT 07/29/2024 11:33 AM PURCHASING ASSISTANT Narrative [facility] 07/29/2024 12:40 PM PURCHASING ASSISTANT This lab is being obtained as part of a Kidney transplant evaluation, is time sensitive, and should only be drawn during the evaluation visit at [address]. Jossie King MD LAB BLOOD ORDERABL ES Final Result Performing Organization Address [facility] de Phone Number [facility] [place] [address] * HIV 1/2 Antibody plus p24 Antigen Blood (07/29/2024 11:01 AM PURCHASING ASSISTANT) [facility] HIV 1/2 ab + p24 ag Nonreactive Nonreactive Comment:Nonreactive for HIV- 1 antigen and HIV-1/HIV-2 antibodies. No laboratory evidence of HIV infection. If acute HIV infection is suspected, consider testing for HIV-1 RNA. Current interpretive data was last revised on 22. Blood 07/29/2024 11:0 1 AM PURCHASING ASSISTANT 07/29/2024 11:32 AM PURCHASING ASSISTANT Narrative [facility] - 07/29/2024 12:13 PM PURCHASING ASSISTANT This lab is being obtained as part of a Kidney transplant evaluation, is time sensitive, and should only be drawn during the evaluation visit at [address]. Jossie King MD LAB MICROBIOLOGY - GENERAL ORDERABLES Final Result Performing Organization Address [facility] [place] [address] * (ABNORMAL) HSV 1 IgG Antibody Blood (07/29/2024 11:01 AM PURCHASING ASSISTANT) HSV 1 IgG Reactive( A) Nonreactive Comment: Interpretive Data 1. Nonreactive: No detectable IgG antibody to HSV-1. 2. Equivocal: Presence or absence of detectable antibodies to HSV-1 cannot be determined and the test should be repeated. 3. Reactive: Indicates presence of detectable IgG antibody to HSV-1. Current interpretive data was last revised on 2016. Blood 07/29/2024 11:0 1 AM PURCHASING ASSISTANT 07/29/2024 11:33 AM PURCHASING ASSISTANT Narrative [facility] 07/29/2024 1:44 PM PURCHASING ASSISTANT This lab is being obtained as part of a Kidney transplant evaluation, is time sensitive, and should only be drawn during the evaluation visit at [address] Jossie King MD LAB MICROBIOLOGY - GENERAL ORDERABLES Final Result Performing Organization Address [facility] de Phone Number [facility] [place] [address] * HSV 2 IgG Antibody Blood (07/29/2024 11:01 AM PURCHASING ASSISTANT) Pathologist [facility] HSV 2 IgG Nonreactive Nonreactive Comment: Interpretive Data 1. Nonreactive: No detectable IgG antibody to HSV-2. 2. Equivocal: Presence or absence of detectable antibodies to HSV-2 cannot be determined and the test should be repeated. 3. Reactive: Indicates presence of detectable IgG antibody to HSV-2. Current interpretive data was last revised on 2022. Blood 07/29/2024 11:0 1 AM PURCHASING ASSISTANT 07/29/2024 11:33 AM PURCHASING ASSISTANT Narrative [facility] - 07/29/2024 1:44 PM PURCHASING ASSISTANT This lab is being obtained as part of a Kidney transplant evaluation, is time sensitive, and should only be drawn during the evaluation visit at [address] Lab[address] Jossie King MD LAB MICROBIOLOGY - GENERAL ORDERABLES Final Result Performing Organization Address [facility] Co de Phone Number [facility] [place] [address] * (ABNORMAL) Hemoglobin A1c (07/29/2024 11:01 AM PURCHASING ASSISTANT) [facility] Hgb A1C 9.0(H) 4.0 - 5.6 [...] fasting glucose. Blood 07/29/2024 11:0 1 AM PURCHASING ASSISTANT 07/29/2024 11:34 AM PURCHASING ASSISTANT Narrative [facility] - 07/29/2024 11:53 AM PURCHASING ASSISTANT This lab is being obtained as part of a Kidney transplant evaluation, is time sensitive, and should only be drawn during the evaluation visit at [address] Lab[address] Jossie King MD LAB BLOOD ORDERABL ES Final Result Performing Organization Address [facility] Co de Phone Number [facility] [place] [address] * Hepatitis B core antibody, total Blood (07/29/2024 11:01 AM PURCHASING ASSISTANT) [facility] Hep B core IgG/IgM Nonreactive Nonreactive Blood 07/29/2024 11:0 1 AM PURCHASING ASSISTANT 07/29/2024 11:32 AM PURCHASING ASSISTANT Narrative [facility] - 07/29/2024 12:47 PM PURCHASING ASSISTANT This lab is being obtained as part of a Kidney transplant evaluation, is time sensitive, and should only be drawn during the evaluation visit at [address] Lab[address] Jossie King MD LAB MICROBIOLOGY - GENERAL ORDERABLES Final Result Performing Organization Address [facility] de Phone Number [facility] [place] [address] * Hepatitis B surface antibody (immune status) Blood (07/29/2024 11:01 AM PURCHASING ASSISTANT) HBsAb (immune status) Reactive Comment:This result is consi stent with immunity to Hepatitis B Virus when used in the setting of routine screening. Current interpretive data was last revised on 22 Blood 07/29/2024 11:0 1 AM PURCHASING ASSISTANT 07/29/2024 11:32 AM PURCHASING ASSISTANT Narrative [facility] 07/29/2024 12:47 PM PURCHASING ASSISTANT This lab is being obtained as part of a Kidney transplant evaluation, is time sensitive, and should only be drawn during the evaluation visit at [address]. Jossie King MD LAB MICROBIOLOGY - GENERAL ORDERABLES Final Result Performing Organization Address [facility] de Phone Number [facility] [place] [address] * Hepatitis B Surface Antigen Blood (07/29/2024 11:01 AM PURCHASING ASSISTANT) HepBsAg Nonreactive Nonreactive Blood 07/29/2024 11:0 1 AM PURCHASING ASSISTANT 07/29/2024 11:32 AM PURCHASING ASSISTANT Narrative [facility] - 07/29/2024 12:47 PM PURCHASING ASSISTANT This lab is being obtained as part of a Kidney transplant evaluation, is time sensitive, and should only be drawn during the evaluation visit at [address]. Jossie King MD LAB MICROBIOLOGY - GENERAL ORDERABLES Final Result Performing Organization Address [facility] Co de Phone Number [facility] [place] [address] * Hepatitis C antibody Blood (07/29/2024 11:01 AM PURCHASING ASSISTANT) Pathologist [facility] Hep C Ab Nonreactive Nonreactive Comment:Antibodies to HCV no t detected. Does NOT exclude the possibility of recent exposure to HCV. Current interpretive data was last revised on 22 Blood 07/29/2024 11:0 1 AM PURCHASING ASSISTANT 07/29/2024 11:32 AM PURCHASING ASSISTANT Narrative [facility] - 07/29/2024 12:47 PM PURCHASING ASSISTANT This lab is being obtained as part of a Kidney transplant evaluation, is time sensitive, and should only be drawn during the evaluation visit at [address]. Jossie King MD LAB MICROBIOLOGY - GENERAL ORDERABLES Final Result Performing Organization Address [facility] Co de Phone Number [facility] [place] [address] * (ABNORMAL) Iron profile w/ IBC (07/29/2024 11:01 AM PURCHASING ASSISTANT) [facility] Iron 62 50 - 150 mcg/dL TIBC 208(L) 250 - 400 mcg/dL [facility] Transferrin saturation 30 20 - 50 % [facility] Blood 07/29/2024 11:0 1 AM PURCHASING ASSISTANT 07/29/2024 11:33 AM PURCHASING ASSISTANT Narrative [facility] - 07/29/2024 12:10 PM PURCHASING ASSISTANT This lab is being obtained as part of a Kidney transplant evaluation, is time sensitive, and should only be drawn during the evaluation visit at [address] Jossie King MD LAB BLOOD ORDERABL ES Final Result Performing Organization Address [facility] Co de Phone Number [facility] [place] [address] * (ABNORMAL) Lipid panel (07/29/2024 11:01 AM PURCHASING ASSISTANT) [facility] Cholesterol 114 30 - 199 mg/dL [...] on 2018. HDL 29(L) >=40 mg/dL [facility] [...] 2018. LDL, calculated 71 <=129 mg/dL [facility] [...] on 2024. Non-HDL Cholesterol 85 mg/dL [facility] Blood 07/29/2024 11:0 1 AM PURCHASING ASSISTANT 07/29/2024 11:33 AM PURCHASING ASSISTANT Narrative [facility] - 07/29/2024 12:10 PM PURCHASING ASSISTANT This lab is being obtained as part of a Kidney transplant evaluation, is time sensitive, and should only be drawn during the evaluation visit at [address]. Jossie King MD LAB BLOOD ORDERABL ES Final Result Performing Organization Address [facility] de Phone Number [facility] [place] [address] * (ABNORMAL) PTH (07/29/2024 11:01 AM PURCHASING ASSISTANT) [facility] PTH 444(H) 15 - 65 pg/mL Blood 07/29/2024 11:0 1 AM PURCHASING ASSISTANT 07/29/2024 11:34 AM PURCHASING ASSISTANT Narrative [facility] - 07/29/2024 12:02 PM PURCHASING ASSISTANT This lab is being obtained as part of a Kidney transplant evaluation, is time sensitive, and should only be drawn during the evaluation visit at [address] Jossie King MD LAB BLOOD ORDERABL ES Final Result Performing Organization Address [facility] de Phone Number [facility] [place] [address] * (ABNORMAL) aPTT (07/29/2024 11:01 AM PURCHASING ASSISTANT) [facility] aPTT 61(H) 28 - 38 sec Comment: Interpretive Data Heparin therapeutic range: 66.0 - 100.0 seconds. Range based on correlation with therapeutic heparin activity range of 0.3 - 0.7 Units/mL. Current interpretive data was last revised on 2023. Blood 07/29/2024 11:0 1 AM PURCHASING ASSISTANT 07/29/2024 11:32 AM PURCHASING ASSISTANT Narrative [facility] - 07/29/2024 11:42 AM PURCHASING ASSISTANT This lab is being obtained as part of a Kidney transplant evaluation, is time sensitive, and should only be drawn during the evaluation visit at [address] Lab[address] Jossie King MD LAB BLOOD ORDERABL ES Final Result Performing Organization Address [facility] de Phone Number [facility] [place] [address] * (ABNORMAL) Phosphorus (07/29/2024 11:01 AM PURCHASING ASSISTANT) [facility] Phosphorus, pl 5.1(H) 2.3 - 4.5 mg/dL Blood 07/29/2024 11:0 1 AM PURCHASING ASSISTANT 07/29/2024 11:33 AM PURCHASING ASSISTANT Narrative [facility] 07/29/2024 12:10 PM PURCHASING ASSISTANT This lab is being obtained as part of a Kidney transplant evaluation, is time sensitive, and should only be drawn during the evaluation visit at [address] Lab. Jossie King MD LAB BLOOD ORDERABL ES Final Result Performing Organization Address [facility] Co de Phone Number [facility] [place] [address] * Protein, urine, random (07/29/2024 11:01 AM PURCHASING ASSISTANT) [facility] Protein, ur, quant 121.2 mg/dL Comment: Interpretive Data No reference range established. Current interpretive data was last revised 2019. Urine 07/29/2024 11:0 1 AM PURCHASING ASSISTANT 07/29/2024 11:32 AM PURCHASING ASSISTANT Narrative [facility] - 07/29/2024 12:18 PM PURCHASING ASSISTANT This lab is being obtained as part of a Kidney transplant evaluation, is time sensitive, and should only be drawn during the evaluation visit at [address] Lab. Jossie King MD LAB URINE ORDERABL ES Final Result Performing Organization Address [facility] de Phone Number [facility] [place] [address] * (ABNORMAL) Protime-INR (07/29/2024 11:01 AM PURCHASING ASSISTANT) PT 50.6(H) 9.7 - 13.0 sec INR 4.54(H) 0.90 - 1.20 [facility] Comment: Interpretive data Oral anticoagulant therapeutic ranges: Venous thromboembolism prophylaxis or treatment: 2.0-3.0 CARDIOLOGY Standard range: 2.0-3.0 High-intensity range: 2.5-3.5 Refer to indication-specific guidelines for appropriate target ranges for prosthetic heart valve replacement. Current interpretive data was last revised on 2019. Blood 07/29/2024 11:0 1 AM PURCHASING ASSISTANT 07/29/2024 11:32 AM PURCHASING ASSISTANT Narrative [facility] - 07/29/2024 11:42 AM PURCHASING ASSISTANT This lab is being obtained as part of a Kidney transplant evaluation, is time sensitive, and should only be drawn during the evaluation visit at [address] Lab[address] Jossie King MD LAB BLOOD ORDERABL ES Final Result Performing Organization Address [facility] Co de Phone Number [facility] [place] [address] * RPR Blood (07/29/2024 11:01 AM PURCHASING ASSISTANT) RPR Nonreactive Nonreactive Blood 07/29/2024 11:0 1 AM PURCHASING ASSISTANT 07/29/2024 11:33 AM PURCHASING ASSISTANT Narrative [facility] 07/29/2024 12:34 PM PURCHASING ASSISTANT This lab is being obtained as part of a Kidney transplant evaluation, is time sensitive, and should only be drawn during the evaluation visit at [address] Jossie King MD LAB MICROBIOLOGY - GENERAL ORDERABLES Final Result Performing Organization Address [facility] de Phone Number [facility] [place] [address] * Varicella Zoster IgG antibody Blood (07/29/2024 11:01 AM PURCHASING ASSISTANT) Pathologist [facility] IgG Reactive Reactive Comment:Reactive: Results diego ggest response to immunization or prior exposure to the virus. Blood 07/29/2024 11:0 1 AM PURCHASING ASSISTANT 07/29/2024 11:33 AM PURCHASING ASSISTANT Narrative [facility] 07/29/2024 1:45 PM PURCHASING ASSISTANT This lab is being obtained as part of a Kidney transplant evaluation, is time sensitive, and should only be drawn during the evaluation visit at [address] Result [facility] Jossie King MD LAB MICROBIOLOGY - GENERAL ORDERABLES Final Result Performing Organization Address [facility] de Phone Number [facility] [place] [address] * (ABNORMAL) Uric acid (07/29/2024 11:01 AM PURCHASING ASSISTANT) Pathologist [facility] Uric acid 2.0(L) 3.0 - 8.0 mg/dL Blood 07/29/2024 11:0 1 AM PURCHASING ASSISTANT 07/29/2024 11:33 AM PURCHASING ASSISTANT Narrative [facility] 07/29/2024 12:10 PM PURCHASING ASSISTANT This lab is being obtained as part of a Kidney transplant evaluation, is time sensitive, and should only be drawn during the evaluation visit at [address] Jossie King MD LAB BLOOD ORDERABL ES Final Result Performing Organization Address [facility] de Phone Number [facility] Billie [facility] [place] [address] * PSA screen (07/29/2024 11:01 AM PURCHASING ASSISTANT) PSA-Total 0.55 <=3.90 ng/mL Comment: Interpretive Data ?AGE ? SEX ?REFERENCE INTERVAL 0 minutes-150 years ?Female ?None 0 minutes-49 years ? Male ?None ? 50-59 years ? Male ?0-3.90 ? 60-69 years ? Male ?0-5.40 ? 70-79 years ? Male ?0-6.20 ? 80-150 years ?Male ?0-6.20 [employer] PSA Total assay procedure was used. Results from different manufacturers or methods may not be comparable. Serial testing should be performed using the same method. Current interpretive data last revised 21. Blood 07/29/2024 11:0 1 AM PURCHASING ASSISTANT 07/29/2024 11:33 AM PURCHASING ASSISTANT Narrative [facility] - 07/29/2024 12:39 PM PURCHASING ASSISTANT This lab is being obtained as part of a Kidney transplant evaluation, is time sensitive, and should only be drawn during the evaluation visit at [facility] Lab. Jossie King MD LAB BLOOD ORDERABL ES Final Result Performing Organization Address [facility] Co de Phone Number [facility] Billie [facility] [place] [address] * LR HLA Typing (Class I and Class II) (07/29/2024 11:01 AM PURCHASING ASSISTANT) r-SSO [facility] A First Allele A*03 [facility] [...] 07/30/24 [facility] Blood 07/29/2024 11:0 1 AM PURCHASING ASSISTANT 08/02/2024 9:03 AM PURCHASING ASSISTANT Narrative [facility] - 08/02/2024 9:03 AM PURCHASING ASSISTANT DNA was extracted from whole blood or buccal cell specimens, and relevant genomic regions were amplified by polymerase chain reactions (PCR). HLA typing was performed on PCR amplicons using reverse sequence-specific oligonucleotide (r-SSO) and/or sequence-specific primers (SSP) based techniques. r-SSO and SSP are FDA approved as IVD tests and validated by the [facility]. Testing performed at the [facility], [address], 5th floor, [facility], [place], [address]. [facility] # [id number]. Dorothy Meade, Ph.D., Mechanical Maintenance Foreman, HLA Laboratory Rell Samuels M.D., Ph.D., Computer Operations Specialist, HLA Laboratory Licha Nieto, Ph.D., [place] Computer Operations Specialist, [facility] Clinical Laboratories Current methodology comment last revised on 04/25/17. Jossie King MD LAB BLOOD ORDERABL ES Final Result Performing Organization Address City/[facility]/ZIP Co de Phone Number [facility] * Collection Task for HLA Typing 1 (07/29/2024 11:01 AM PURCHASING ASSISTANT) HLA Class I DNA (ABC) Recipient Received Blood 07/29/2024 11:0 1 AM PURCHASING ASSISTANT 07/29/2024 11:56 AM PURCHASING ASSISTANT Jossie King MD LAB BLOOD ORDERABL ES Final Result Performing Organization Address [facility] Co de Phone Number [facility] [place] [address] * Collection Task for HLA Typing 2, Patient (07/29/2024 11:01 AM PURCHASING ASSISTANT) HLA Class II DNA (DR, DQ, DP) Recipient Received Blood 07/29/2024 11:0 1 AM PURCHASING ASSISTANT 07/29/2024 11:56 AM PURCHASING ASSISTANT Jossie King MD LAB BLOOD ORDERABL ES Final Result Performing Organization Address City/[facility] Co de Phone Number [facility] [place] [address] * HLA Antibody Screen - SAB (Class I and Class II) (07/29/2024 11:01 AM PURCHASING ASSISTANT) Class I Treatment EDTA [facility] Class I [...] DR52 [facility] Blood 07/29/2024 11:0 1 AM PURCHASING ASSISTANT 08/02/2024 9:46 AM PURCHASING ASSISTANT Narrative [facility] - 08/02/2024 9:46 AM PURCHASING ASSISTANT Single-antigen HLA antibody screen is performed on serum samples using a method developed and validated by the [facility] HLA laboratory based on an FDA-approved IVD kit (Blinkcreen Single-Antigen, [employer] [place], [facility] [place]). All patient serum samples are pretreated with EDTA before the screen to prevent complement interference. Additional serum treatments, such as adsorption and DTT treatment, may be performed as indicated. ??Interpretive comments: Low risk: MFI [id number]. Moderate risk: MFI [id number]. Increased risk: MFI >/= 5000. The presence [...] antigens to avoid. Testing performed at the [facility] HLA [facility], [facility] [address], 5th floor, [facility], [place], [address]. [facility] # [id number]. Dorothy Meade, Ph.D., Mechanical Maintenance Foreman, HLA Laboratory Rell Samuels M.D., Ph.D., Computer Operations Specialist, HLA Laboratory Licha Nieto, Ph.D., CLIA Computer Operations Specialist, [facility] Laboratories Current methodology and interpretive comments last revised on 09/15/2022. Jossie King MD LAB BLOOD ORDERABL ES Final Result Performing Organization Address [facility] Co de Phone Number [facility] * Collection Task for HLA Antibody Screen (07/29/2024 11:01 AM PURCHASING ASSISTANT) HLA Antibody Screen By Single Antigen Received Blood 07/29/2024 11:0 1 AM PURCHASING ASSISTANT 07/29/2024 11:56 AM PURCHASING ASSISTANT Jossie King MD LAB BLOOD ORDERABL ES Final Result Performing Organization Address [facility] Co de Phone Number [facility] One [facility] [place] [address] * (ABNORMAL) Urinalysis, microscopic only (07/29/2024 10:53 AM PURCHASING ASSISTANT) WBC, ur 21-50(A) 0 - 5 /HPF RBC, ur >50(A) 0 - 2 /HPF [facility] Epithelial cells, squamous, ur 1-5 0 - 5 /HPF [facility] Bacteria, ur Trace(A) [facility] Mucous, ur Present(A) [facility] Hyaline casts, ur 1-5 0 - 10 /LPF [facility] Urine 07/29/2024 10:5 3 AM PURCHASING ASSISTANT 07/29/2024 11:27 AM PURCHASING ASSISTANT Jossie King MD LAB URINE ORDERABL ES Final Result Performing Organization Address City/[facility]/ZIP Co de Phone Number AL[facility]DRA CARRION Billie [facility] [place] [address] * (ABNORMAL) Oxalate (oxalic acid) (07/29/2024 10:53 AM PURCHASING ASSISTANT) Oxalate 12.3(H) <=2.0 mcmol/L [facility] Comment: High value suggestive of Primary Hyperoxaluria. However, if the patient has chronic kidney disease (GFR<30 mL/min/1.73m2), plasma oxalate values up to 30 mcmol/L can be normal. The [facility]al[facility] is available to review case details and answer any questions regarding interpretation ([email or web address]; [phone]) ADDITIONAL INFORMATION This test has been modified from the flight line service attendant's instructions. Its performance characteristics were determined by [facility] in a manner consistent with CLIA requirements. This test has not been cleared or approved by the U.S. Food and Drug Administration. Test Performed by: [facility] [address] [address] Chemical Tester: Jairo Higgins Ph.D.; CLIA# [id number] Blood 07/29/2024 10:5 3 AM PURCHASING ASSISTANT 07/29/2024 11:37 AM PURCHASING ASSISTANT us Jossie King MD LAB BLOOD ORDERABL ES Final Result [facility] CARRION Billie [facility] [place] [address] [facility] * (ABNORMAL) Urinalysis reflex to microscopic (07/29/2024 10:53 AM PURCHASING ASSISTANT) Color, ur Yellow Yellow Clarity, ur Cloudy(A) [...] acid stone formation. Source: [facility] Current Interpretive Data was last [...] [facility] Urine 07/29/2024 10:5 3 AM PURCHASING ASSISTANT 07/29/2024 11:27 AM PURCHASING ASSISTANT Narrative [facility] - 07/29/2024 11:29 AM PURCHASING ASSISTANT This lab is being obtained as part of a Kidney transplant evaluation, is time sensitive, and should only be drawn during the evaluation visit at [facility] Lab. us Jossie King MD LAB URINE ORDERABL ES Final Result [facility] One [facility] [place] [address] documented in this encounter Visit Diagnoses Diagnosis End stage renal disease (CMS/HCC) (HCC) End stage renal disease ESRD (end stage renal disease) (CMS/HCC) (HCC) End stage renal disease documented in this encounter Care Teams Mechanical Door Repairer Relationship Specialty Start Date End Date Aditya Castro MD [address] [facility] [place] [address] PCP - General 10/17/19 Alondra Lambert, RN [address] [facility] [address] [place] [address] Cherry Sorter 03/06/24 Hamlet Ortega Jr., MD [address] [place] [address] Consulting Physician Cardiovascular Disease 05/10/24 documented as of this encounter
--- OUTSIDE RECORDS SUMMARY | 2024-09-07 19:13 | XMS_ITS | Encounter Summary ---
Author Organization [facility] Healthcare Address [address] [place] [address] Care Team Providers Care Handtools Repairer Name Role Phone Aditya Castro MD Primary Care Provider [phone] Alondra Lambert RN Unavailable [phone] Shannon Brock MD, Hamlet Gordon Unavailable [phone] Encounter Details Date Type Department Care Team (Late st Contact Info) Description 05/16/2024 Documentation [facility] Transplant Kidney [address] [id number] [place] [address] Melany Kelly Social History Tobacco Use Types [...] materials from doctor or pharmacy Never 12/01/2023 [facility] Utilities Answer Date Recorded In the past 12 months has [employer], gas, oil, or water company threatened to [...] on file Legal Sex Male 3:42 AM CARDROOM WORKER Gender Identity Not on file Sexual Orientation Not on file documented as of this encounter Progress Notes * Melany Kelly - 05/16/2024 9:00 AM CDT Mailed c/c folder, schedule, consents, etc documented in this encounter Plan of Treatment Not on file documented as of this encounter Visit Diagnoses Not on filedocumented in this encounter Care Teams Handtools Repairer Relationship Specialty Start Date End Date Aditya Castro MD [address] [facility] [place] [address] PCP - General 10/17/19 Alondra Lambert RN [address] [facility] [address] [place] [address] Mma Fighter 03/06/24 Hamlet Ortega Jr., MD [address] [place] [address] Consulting Physician Cardiovascular Disease 05/10/24 documented as of this encounter
--- OUTSIDE RECORDS SUMMARY | 2024-09-07 19:13 | XMS_ITS | Encounter Summary ---
Author Organization [facility] Healthcare Address [address] [place] [address] Care Team Providers Care Parts Counterman Name Role Phone Aditya Castro MD Primary Care Provider [phone] Alondra Lambert RN Unavailable [phone] Shannon Brock MD, Hamlet Gordon Unavailable [phone] Encounter Details Date Type Department Care Team (Late st Contact Info) Description 07/29/2024 Telephone [facility] Transplant Kidney [address] [facility] [address] [id number] [place], [place] [id number] Alondra Lambert, RN [address] [facility] [address] [place] [id number] Social History Tobacco Use Types Packs/Day Years [...] materials from doctor or pharmacy Never 12/01/2023 [facility] Utilities Answer Date Recorded In the [...] often do you attend chur ch or mu-ism services? 1 to 4 times per year 10/16/2023 Do you belong to any clubs o r organizations such as latter-day groups, unions, fraternal or athletic groups, or [...] file Legal Sex Male 3:42 AM COMPENSATION SUPERVISOR Gender Identity Not on file Sexual [...] 10. He is heading this way now. ENSATION SUPERVISOR documented in this encounter Plan of Treatment Not on file documented as of this encounter Visit Diagnoses Not on filedocumented in this encounter Care Teams Parts Counterman Relationship Specialty Start Date End Date Aditya Castro MD [address] [facility] [place] [address] PCP - General 10/17/19 Alondra Lambert, RN [address] [facility] [address] [place] [address] Plush Dresser 03/06/24 Hamlet Ortega Jr., MD [address] [place] [address] Consulting Physician Cardiovascular Disease 05/10/24 documented as of this encounter
--- OUTSIDE RECORDS SUMMARY | 2024-09-07 19:13 | XMS_ITS | Encounter Summary ---
Author Organization [facility] Healthcare Address [address] [place] [address] Care Team Providers Care Manager Fine Name Role Phone Aditya Castro MD Primary Care Provider [phone] Alondra Lambert RN Unavailable [phone] Shannon Brock MD, Hamlet Gordon Unavailable [phone] Encounter Details Date Type Department Care Team (Late st Contact Info) Description 06/11/2024 Orders Only [facility] Medical Group Cardiology [address] [place] [address] Karen Barnes, ROBERTO [address] [place] [address] Social History Tobacco Use [...] from doctor or pharmacy Never 12/01/2023 [facility] Utilities Answer Date Recorded In the [...] any clubs o r organizations such as pentecostal groups, unions, fraternal or athletic groups, or [...] on file Legal Sex Male 3:42 AM 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
--- OUTSIDE RECORDS SUMMARY | 2024-09-07 19:13 | XMS_ITS | Encounter Summary ---
Author Organization [facility] Healthcare Address [address] [place] [address] Care Team Providers Care Naval Architect Name Role Phone Aditya Castro MD Primary Care Provider [phone] Alondra Lambert RN Unavailable [phone] Shannon Brock MD, Hamlet P. Unavailable [phone] Reason for Visit * (Routine) - Pending Review Specialty Diagnoses / Procedures Referred By Contac t Referred To Contact Diagnoses End stage renal disease (CMS/HCC) (HCC) Procedures Six Minute Walk - Jossie King MD [address] [place] [address] Phone: tel: fax: [address] [phone] Referral ID Status Reason Start Date Expiration Date V isits Requested Visits Authorized [id number] Pending Review 05/10/2024 06/09/2025 1 1 Encounter Details Date Type Department Care Team (Latest Contact Info) Description 07/29/2024 11:02 AM NURSING SERVICE ADMINISTRATOR - 07/29/2024 11:59 PM NURSING SERVICE ADMINISTRATOR Hospital Encounter [facility] Pulmonary Rehabilitiation Program [address] [facility] Advanced [facility] [address] [place] [address] Discharge Disposition: Discharge to home [...] doctor or pharmacy Never 12/01/2023 [facility] Utilities Answer Date Recorded In the [...] often do you attend chur ch or restorationism services? 1 to 4 times per year [...] file Legal Sex Male 3:42 AM NURSING SERVICE ADMINISTRATOR Gender Identity Not on file Sexual [...] PUMP: Continue Omnipod 5 insulin pump with Mee[employer] G6 CGM at home settings: TIME BASAL [...] 1 tablet (25 mcg total) by mouth can operator before breakfast 30 tablet 1 11/04/2023 [...] (20 mg total) by mouth daily peg [id number]-hve cerin (ARTIFICAL TEARS) 1-0.2-0.2 % ophthalmic solution [...] SIX MINUTE WALK Routine 07/29/2024 2:46 PM NURSING SERVICE ADMINISTRATOR End stage renal disease (CMS/HCC) (HCC) documented in this encounter Results * Six Minute Walk - (07/29/2024 2:46 PM NURSING SERVICE ADMINISTRATOR) Anatomical Region Laterality Modality PFT Narrative 07/29/2024 3:52 PM NURSING SERVICE ADMINISTRATOR Table formatting from the original result was not included. Davey Pickard V., PICU NURSE on 07/29/2024 ??2:45 PM Table formatting from the original note was not included. 6 MINUTE WALK RESULTS Name: Juvenal Daigle Jr : 1970 DOS: 07/29/2024 Diagnosis: ESRD/KTE PICU NURSE performed walk: Carmenza Pickard Rest: 1 min [...] Prescription: RA at rest and with exercise [facility] Jaylen King MD RESPIRATORY CARE O RDERABLES Final Result documented in this encounter Visit Diagnoses Not on filedocumented in this encounter Care Teams Naval Architect Relationship Specialty Start Date End Date Aditya Castro MD [address] [facility] [place] [address] PCP - General 10/17/19 Alondra Lambert, RN [address] [facility] [address] [place] [address] Rate Clerk Passenger 03/06/24 Hamlet Ortega Jr., MD [address] [place] [address] Consulting Physician Cardiovascular Disease 05/10/24 documented as of this encounter
--- OUTSIDE RECORDS SUMMARY | 2024-09-07 19:13 | XMS_ITS | Encounter Summary ---
Author Organization [facility] Address [address] [place] [address] Phone Care Team Providers Care Crucible Furnace Tender Name Role Phone Aditya Castro MD Primary Care Provider [phone] Alondra Lambert RN Unavailable [phone] Shannon Brock MD, Hamlet P. Unavailable [phone] Leandro Reyes MD Unavailable [phone] Encounter Details Date Type Department Care Team (Late st Contact Info) Description 07/29/2024 1:00 PM AIRFLIGHT ATTENDANTS SUPERVISOR Office Visit [facility] Nephrology [address] [facility] Advanced Medicine 5th [place] [address] [place] [address] Radha Bartholomew MD [facility] [address] [place] [address] Pre-transplant evaluation for kidney transplant (Primary Dx); End stage renal disease (CMS/HCC) (HCC); Status post coronary artery bypass grafting; Status post aortic valve replacement; 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 No 10/16/2023 Personal Safety Answer Date Recorded Have you ever been in or are you currently in a harmful physical or emotional relationship or is someone making you feel afraid or unsafe? 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 Male 3:42 AM AIRFLIGHT ATTENDANTS SUPERVISOR Gender Identity Not on file Sexual Orientation Not on file documented as of this encounter Last Filed Vital Signs Vital Sign Reading Time Taken Comments Blood Pressure 122/75 07/29/2024 1:00 PM AIRFLIGHT ATTENDANTS SUPERVISOR Pulse 116 07/29/2024 1:00 PM AIRFLIGHT ATTENDANTS SUPERVISOR Temperature 36.8 ??C (98.2 ??F) 07/29/2024 1:00 PM CS T Respiratory Rate - - Oxygen Saturation - - Inhaled Oxygen Concentration - - Weight 121.2 kg (267 lb 1.6 oz) 07/29/2024 1:00 PM AIRFLIGHT ATTENDANTS SUPERVISOR Height 177.8 cm (5' 10 ) 07/29/2024 1:00 PM AIRFLIGHT ATTENDANTS SUPERVISOR Body Mass Index 38.32 07/29/2024 1:00 PM AIRFLIGHT ATTENDANTS SUPERVISOR documented in this encounter Progress Notes [...] mech AVR 09/2023 with sternal plate 5. RI/STEMI 2016 and 2019. Prior stent 03/2017 to [...] 1 tablet (25 mcg total) by mouth fisher gill net beforebreakfast, Disp: 30 tablet, Rfl: 1 Linzess [...] by mouth daily, Disp: , Rfl: peg 270-eielncietegy-ojlpfevz (ARTIFICAL TEARS) 1-0.2-0.2 % ophthalmic solution, 1 [...] Nonreactive 07/29/2024 Lab Results Component Value Date [id number] Nonreactive 07/29/2024 Lab Results Component Value Date [...] of intravenous contrast. INDICATIONS: Coronary artery disease, [place]of bay vessel. Measurements: 2D/M Mode Doppler Measurement Value [...] testing, I have communicated with the patient's [facility] marketing information coordinator the patient's candidacy for transplant and [...] as well. He should work with his sales department supervisor on volume removal/fluid restriction to optimize this. [...] SHR donors. 12. Being seen by his sales department supervisor this week for the PD cath. The [...] time spent in any separately reportable services. LIGHT ATTENDANTS SUPERVISOR LIGHT ATTENDANTS SUPERVISOR documented in this encounter Plan of [...] on chronic dialysis (CMS/HCC) (HCC) CAD in [place] artery Paroxysmal atrial fibrillation (CMS/HCC) (HCC) Atrial [...] tablet added in this encounter Care Teams Crucible Furnace Tender Relationship Specialty Start Date End Date Aditya Castro MD [address] [facility] [place] [address] PCP - General 10/17/19 Alondra Lambert, RN [address] [facility] [address] [place] [address] Fox Farmer 03/06/24 Hamlet Ortega Jr., MD [address] [place] [address] Consulting Physician Cardiovascular Disease 05/10/24 Leandro Reyes MD [address] [place] [address] Consulting Physician Nephrology 07/30/24 documented as of this encounter
--- OUTSIDE RECORDS SUMMARY | 2024-09-07 19:13 | XMS_ITS | Encounter Summary ---
Author Organization [facility] Address [address] [place] [address] Care Team Providers Care Coordinator Skill Training Program Name Role Phone Aditya Castro MD Primary Care Provider [phone] Alondra Lambert RN Unavailable [phone] Shannon Brock MD, Hamlet P. Unavailable [phone] Encounter Details Date Type Department Care Team (Late st Contact Info) Description 07/26/2024 Orders Only [facility] Transplant Kidney [address] [address] [address] [phone] [place], [place] [id number] Alondra Lambert, RN [address] [facility] [address] [place] [phone] ESRD (end stage renal disease) ([facility]/HCC) (HCC) (Primary Dx) Social History Tobacco Use [...] often do you attend chur ch or mosque services? 1 to 4 times per year [...] on file Legal Sex Male 3:42 AM IN CLASSROOM TUTOR Gender Identity Not on file Sexual Orientation Not on file documented as of this encounter Plan of Treatment Not on file documented as of this encounter Results * (ABNORMAL) Oxalate (oxalic acid) (07/29/2024 10:53 AM IN CLASSROOM TUTOR) Oxalate 12.3(H) <=2.0 mcmol/L [facility] Comment: High value suggestive of Primary Hyperoxaluria. However, if the patient has chronic kidney disease (GFR<30 mL/min/1.73m2), plasma oxalate values up to 30 mcmol/L can be normal. The [facility] Hyperoxaluria Center is available to review case details and answer any questions regarding interpretation ([email or web address] [phone]) ADDITIONAL INFORMATION This test has been modified from the monument erector's instructions. Its performance characteristics were determined by [facility] in a manner consistent with CLIA requirements. This test has not been cleared or approved by the U.S. Food and Drug Administration. Test Performed by: [address] [address] Wire Winding Machine Operator: Jairo Higgins Ph.D.; CLIA# [id number] Blood 07/29/2024 10:5 3 AM IN CLASSROOM TUTOR 07/29/2024 11:37 AM IN CLASSROOM TUTOR us Jossie King MD LAB BLOOD ORDERABL ES Final Result ALESSANDRA [facility] Department [place] [address] [place] ref [facility] documented in this encounter Visit Diagnoses Diagnosis ESRD (end stage renal disease) (CMS/HCC) (HCC)- Primary End stage renal disease documented in this encounter Care Teams Coordinator Skill Training Program Relationship Specialty Start Date End Date Aditya Castro MD [address] [facility] [place] [address] PCP - General 10/17/19 Alondra Lambert, RN [address] [facility] [address] [place] [address] Mine Administrator Supervisor 03/06/24 Hamlet Ortega Jr., MD [address] [place] [address] Consulting Physician Cardiovascular Disease 05/10/24 documented as of this encounter
--- OUTSIDE RECORDS SUMMARY | 2024-09-07 19:13 | XMS_ITS | Encounter Summary ---
Author Organization [facility] Healthcare Address [address] [place] [address] Care Team Providers Care Hose Coupling Joiner Name Role Phone Aditya Castro MD Primary Care Provider [phone] Alondra Lambert RN Unavailable [phone] Shannon Brock MD, Hamlet Gordon Unavailable [phone] Encounter Details Date Type Department Care Team (Late st Contact Info) Description 05/10/2024 Telephone [facility] Transplant Kidney [address] [facility] [address] [phone] [place], [place] [phone] Alondra Lambert, RN [address] [facility] [address] [place] [phone] Social History Tobacco Use Types Packs/Day Years [...] from doctor or pharmacy Never 12/01/2023 [facility] Utilities Answer Date Recorded In the past [...] any clubs o r organizations such as quaker groups, unions, fraternal or athletic groups, or [...] on file Legal Sex Male 3:42 AM CORN CUTTER Gender Identity Not on file Sexual [...] on filedocumented in this encounter Care Teams Hose Coupling Joiner Relationship Specialty Start Date End Date Aditya Castro MD [address] [facility] [place] [address] PCP - General 10/17/19 Alondra Lambert, RN [address] [facility] [address] [place] [address] Bottle Line Worker 03/06/24 Hamlet Ortega Jr., MD [address] [place] [address] Consulting Physician Cardiovascular Disease 05/10/24 documented as of this encounter
--- OUTSIDE RECORDS SUMMARY | 2024-09-07 19:13 | XMS_ITS | Encounter Summary ---
Author Organization [facility] Healthcare Address [address] [place] [address] Care Team Providers Care Shoe Salesman Name Role Phone Aditya Castro MD Primary Care Provider [phone] Alondra Lambert RN Unavailable [phone] Shannon Brock MD, Hamlet Gordon Unavailable [phone] Encounter Details Date Type Department Care Team (Late st Contact Info) Description 06/06/2024 Documentation [facility] and [facility] Transplant Kidney [address] [phone] [place] [address] Melany Kelly Social History Tobacco Use Types [...] No 12/01/2023 [facility] B1300: Health Literacy Answer Ruebns e Recorded Frequency of needing help to read materials from doctor or pharmacy Never 12/01/2023 [facility] Utilities Answer Date Recorded In the past 12 months has [employer], gas, oil, or water company threatened to [...] often do you attend chur ch or christian services? 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
--- OUTSIDE RECORDS SUMMARY | 2024-09-07 19:13 | XMS_ITS | Encounter Summary ---
Author Organization [facility] Healthcare Address [address] [place] [address] Care Team Providers Care Turbine Mechanic Name Role Phone Aditya Castro MD Primary Care Provider [phone] Alondra Lambert RN Unavailable [phone] Shannon Brock MD, Hamlet Gordillo. Unavailable [phone] Reason for Referral * Diagnostic Imaging (Routine) - Pending Review Specialty Diagnoses / Procedures Referred By Contac t Referred To Contact Radiology Diagnoses End stage renal disease (CMS/HCC) (HCC) Procedures CT Abdomen Pelvis WO Contrast Jossie King MD [address] [place] [address] Phone: tel: fax: [facility] 1 [place] [address] Referral ID Status Reason Start Date Expiration Date V isits Requested Visits Authorized [id number] Pending Review 05/10/2024 06/09/2025 1 1 DIAN BACON TIER Reason for Visit * Diagnostic Imaging (Routine) - Pending Review Specialty Diagnoses / Procedures Referred By Contac t Referred To Contact Radiology Diagnoses End stage renal disease (CMS/HCC) (HCC) Procedures CT Abdomen Pelvis WO Contrast Jossie King MD [address] [place] [address] Phone: tel: fax: [facility] 1 [facility] [place] [address] Referral ID Status Reason Start Date Expiration Date V isits Requested Visits Authorized [id number] Pending Review 05/10/2024 06/09/2025 1 1 Encounter Details Date Type Department Care Team (Latest Contact Info) Description 07/29/2024 10:58 AM CANADIAN BACON TIER - 07/29/2024 11:59 PM CANADIAN BACON TIER Hospital Encounter [facility] [address] [place] [address] End stage renal disease (CMS/HCC) (HCC) Discharge [...] materials from doctor or pharmacy Never 12/01/2023 [facility] Utilities Answer Date Recorded In the past 12 months has e [employer], gas, oil, or water [employer] threatened to shut off services in your [...] any clubs o r organizations such as alevism groups, unions, fraternal or athletic groups, or [...] on file Legal Sex Male 3:42 AM CANADIAN BACON TIER Gender Identity Not on file Sexual Orientation [...] PUMP: Continue Omnipod 5 insulin pump with [employer] G6 CGM at home settings: TIME BASAL [...] 1 tablet (25 mcg total) by mouth loan approver before breakfast 30 tablet 1 11/04/2023 Linzess [...] (20 mg total) by mouth daily peg [id number]-uooutbskwlpf-gwc cerin (ARTIFICAL TEARS) 1-0.2-0.2 % ophthalmic solution [...] 500 mg tablet warfarin (COUMADIN) 2 mg tabletIndications:Wv chanical Valve Thromboembolism Prophylaxis Take 4 mg [...] Read Routine (OP Routine) 07/29/2024 12:43 PM CANADIAN BACON TIER End stage renal disease (CMS/HCC) (HCC) documented in this encounter Results * CT Abdomen Pelvis WO Contrast (07/29/2024 12:43 PM CANADIAN BACON TIER) Anatomical Region Laterality Modality Body N/A Computed Tomogra phy 07/29/2024 1:04 PM CANADIAN BACON TIER Impressions 07/29/2024 1:04 PM CANADIAN BACON TIER 1. ??Moderate discontinuous atherosclerotic calcifications involve the [...] Teresa Rivera M.D. Narrative 07/29/2024 1:04 PM CANADIAN BACON TIER EXAMINATION: ??Computed tomography of the abdomen and [...] Electronically signed by: Maria Teresa Rivera M.D. [facility] Jaylen King MD IMG CT PROCEDURES Final Result documented in this encounter Visit Diagnoses Diagnosis End stage renal disease (CMS/HCC) (HCC) End stage renal disease documented in this encounter Care Teams Turbine Mechanic Relationship Specialty Start Date End Date Aditya Castro MD [address] [facility] [place] [address] PCP - General 10/17/19 Alondra Lambert RN [address] [facility] [address] [place] [address] Director Custom 03/06/24 Hamlet Ortega Jr., MD [address] [place] [address] Consulting Physician Cardiovascular Disease 05/10/24 documented as of this encounter
--- OUTSIDE RECORDS SUMMARY | 2024-09-07 19:13 | XMS_ITS | Encounter Summary ---
Author Organization [facility] Healthcare Address [address] [place] [address] Care Team Providers Care Transformer Coil Winder Name Role Phone Aditya Castro MD Primary Care Provider [phone] Alondra Lambert RN Unavailable [phone] Shannon Brock MD, Hamlet Gordon Unavailable [phone] Encounter Details Date Type Department Care Team (Late st Contact Info) Description 06/24/2024 Telephone 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 Pending confirmation. LE LASTER documented in this encounter Plan of Treatment Not on file documented as of this encounter Visit Diagnoses Not on filedocumented in this encounter Care Teams Transformer Coil Winder Relationship Specialty Start Date End Date Aditya Castro MD [address] [facility] [place] [address] PCP - General 10/17/19 Alondra Lambert, RN [address] [facility] [address] [place] [address] Employment Trainer 03/06/24 Hamlet Ortega Jr., MD [address] [place] [address] Consulting Physician Cardiovascular Disease 05/10/24 documented as of this encounter
--- OUTSIDE RECORDS SUMMARY | 2024-09-07 19:13 | XMS_ITS | Encounter Summary ---
Author Organization [facility] Healthcare Address [address] [place] [address] Care Team Providers Care Scientific Advisor Name Role Phone Aditya Castro MD Primary Care Provider [phone] Alondra Lambert RN Unavailable [phone] Shannon Brock MD, Hamlet Gordillo. Unavailable [phone] Reason for Visit * Reason Onset Date Comments Appointment/Schedules 05/13/2024 Encounter Details Date Type Department Care Team (Late st Contact Info) Description 05/13/2024 Documentation [facility] and [facility] Transplant Kidney [address] [id number] [place] [address] Melany Kelly Appointment/Schedules Social History Tobacco Use [...] materials from doctor or pharmacy Never 12/01/2023 [facility] Utilities Answer Date Recorded In the [...] often do you attend chur ch or temple services? 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
--- OUTSIDE RECORDS SUMMARY | 2024-09-07 19:13 | XMS_ITS | Encounter Summary ---
Author Organization [facility] Healthcare Address [address] [place] [address] Care Team Providers Care Talent Assistant Name Role Phone Aditya Castro MD Primary Care Provider [phone] Alondra Lambert RN Unavailable [phone] Shannon Brock MD, Hamlet Gordon Unavailable [phone] Encounter Details Date Type Department Care Team (Late st Contact Info) Description 07/26/2024 Telephone [facility] Transplant Kidney [address] [facility] [address] Mail[address] [phone] [place], [place] [phone] Alondra Lambert, RN [address] [facility] [address] [place] [phone] Social History Tobacco Use Types Packs/Day Years [...] any clubs o r organizations such as baptism groups, unions, fraternal or athletic groups, or [...] on file Legal Sex Male 3:42 AM APARTMENT COMMUNITY ASSISTANT MANAGER Gender Identity Not on file Sexual Orientation Not on file documented as of this encounter Miscellaneous Notes * Telephone Encounter - Alondra Lambert RN - 07/26/2024 8:45 AM CST Called leaving a detailed message asking for a return call to assure patient is planning to come for his appointments and to see if his consents were mailed. TMENT COMMUNITY ASSISTANT MANAGER documented in this encounter Plan of Treatment Not on file documented as of this encounter Visit Diagnoses Not on filedocumented in this encounter Care Teams Talent Assistant Relationship Specialty Start Date End Date Aditya Castro MD [address] [facility] [place] [address] PCP - General 10/17/19 Alondra Lambert, RN [address] [facility] [address] [place] [address] Aws Architect 03/06/24 Hamlet Ortega Jr., MD [address] [place] [address] Consulting Physician Cardiovascular Disease 05/10/24 documented as of this encounter
--- OUTSIDE RECORDS SUMMARY | 2024-09-07 19:13 | XMS_ITS | Encounter Summary ---
Author Organization [facility] Healthcare Address [address] [place] [address] Care Team Providers Care Sports Management Internship Name Role Phone Aditya Castro MD Primary Care Provider [phone] Alondra Lambert RN Unavailable [phone] Shannon Brock MD, Hamlet Gordon Unavailable [phone] Encounter Details Date Type Department Care Team (Late st Contact Info) Description 07/26/2024 Telephone [facility] and [facility] Transplant Kidney [address] [address] Mailstop [phone] [place] [address] Elsie Cornejo Social History Tobacco Use Types [...] materials from doctor or pharmacy Never 12/01/2023 [facility] Utilities Answer Date Recorded In the past 12 months has [employer], gas, oil, or water [employer] threatened to shut off services in your [...] often do you attend chur ch or episcopalian services? 1 to 4 times per year [...] on file Legal Sex Male 3:42 AM COST MANAGER Gender Identity Not on file Sexual Orientation Not on file documented as of this encounter Miscellaneous Notes * Telephone Encounter - Elsie Cornejo - 07/26/2024 2:35 PM CST Received call from [facility] needing to speak with nurse coordinator regarding: [facility] called and this is not there patient if needed call back [phone] Patient needs addressed. No follow-up needed. MANAGER documented in this encounter Plan of Treatment Not on file documented as of this encounter Visit Diagnoses Not on filedocumented in this encounter Care Teams Sports Management Internship Relationship Specialty Start Date End Date Aditya Castro MD [address] [facility] [place] [address] PCP - General 10/17/19 Alondra Lambert, RN [address] [facility] [address] [place] [address] Multimedia Educational Specialist 03/06/24 Hamlet Ortega Jr., MD [address] [place] [address] Consulting Physician Cardiovascular Disease 05/10/24 documented as of this encounter
--- OUTSIDE RECORDS SUMMARY | 2024-09-07 19:13 | XMS_ITS | Encounter Summary ---
Author Organization [facility] Healthcare Address [address] [place] [address] Care Team Providers Care Shift Stacker Name Role Phone Aditya Castro MD Primary Care Provider [phone] Alondra Lambert RN Unavailable [phone] Shannon Brock MD, Hamlet Gordon Unavailable [phone] Encounter Details Date Type Department Care Team (Late st Contact Info) Description 07/29/2024 9:00 AM FRENCH LECTURER Social Work [facility], 8th Floor, [place] [address] Social History Tobacco Use Types Packs/Day Years [...] in a half-way (including now)? No 10/16/2023 Housing Stability Vital Sign Answer Rubens e Recorded In the last 12 months, was t here a time when you were not able to pay the mortgage or rent on time? No 08/01/2024 In the past 12 months, how m any times have you moved where you were living? 1 08/01/2024 At any time in the past 12 m [facility], were you homeless or living in a half-way (including now)? No 08/01/2024 Personal Safety Answer Date Recorded Have you ever been in or are you currently in a harmful physical or emotional relationship or is someone making you feel afraid or unsafe? 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 Male 3:42 AM FRENCH LECTURER Gender Identity Not on file Sexual Orientation [...] sibling Marital Status: Do you have a Anabaptism Preference or Affiliation?: Yes Preference/Affiliation: Jehovah'S Witness Current Transportation: Own vehicle Miles from [facility]: 24 Living Arrangements: Children Type of Residence: Private residence Address: [place] [address] How many stairs inside?: 0 How many stairs outside?: 0 Summary of Support System: Pt is currently residing with his son, Juno (19), in a home that theyrent in [place], [place], which is approximately [place] [address] [place] [address] [place]. Pt is and has two children. His daughter Og (23) lives about 15 minutes away from the patient. She is a nursing administrator. His son is still in high school. [...] does not have advance directive on file [facility]. SW provided paperwork and he will [...] which he initiated October 16, 2019 with [employer]. He has his labs drawn there at [facility] and uses the [facility]. He is able to drive and transports himself to medical appointments independently. Patient also has a Medicaid funded construction worker who comes three days per week to assist with tasks at home. 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 Medicare and [place] Medicaid ([facility]). He states that he is notpaying any premiums for his Medicare and has not had any concerns regarding his insurance coverage.He does not plan to make any changes to coverage in the year ahead. [facility] Social work defers to the financial solutions advisor for a review of coverage. Substance Use [...] Disorder?: No Legal History Prior Arrest/Incarceration: No Probation/Onton: No Warrants/Charges/Cases: No Valid Stockkeeper???s License: Yes Summary of Legal History: The [...] Integrated Psychosocial Assessment for Transplant (SIPAT): The Herbert Integrated Psychosocial Assessment for Transplant (SIPAT) is [...] including the clinical judgement of the social sciences research scientist. SIPAT Total Score: 18 SIPAT Score Interpretation [...] Completed by: Sera Callahan LCSW, OSW-C Transplant Funeral Director/Embalmer This note was written as a communication tool between healthcare providers and may contain technical language, terminology, use of tools and abbreviations that are difficult to interpret without advanced training. If you have questions or concerns regarding what is written in this note, please request to speak with the primary medical team taking care of you or your family member. CH LECTURER documented in this encounter Plan of Treatment Not on file documented as of this encounter Visit Diagnoses Not on filedocumented in this encounter Care Teams Shift Stacker Relationship Specialty Start Date End Date Aditya Castro MD [address] [place] [address] PCP - General 10/17/19 Alondra Lambert, RN [address] [facility] [address] [place] [address] Professor Of Physics 03/06/24 Hamlet Ortega Jr., MD [address] [place] [address] Consulting Physician Cardiovascular Disease 05/10/24 documented as of this encounter
--- OUTSIDE RECORDS SUMMARY | 2024-09-07 19:13 | XMS_ITS | Encounter Summary ---
Author Organization [facility] Healthcare Address [address] [place] [address] Care Team Providers Care Meter Repairer Name Role Phone Aditya Castro MD Primary Care Provider [phone] Alondra Lambert RN Unavailable [phone] Encounter Details Date Type Department Care Team (Late st Contact Info) Description 05/02/2024 Documentation [facility] Trans[facility] Kidney [address] [facility] [id number] [place] [address] Melany Kelly Social History Tobacco Use Types [...] materials from doctor or pharmacy Never 12/01/2023 [facility] Utilities Answer Date Recorded In [...] on file Legal Sex Male 3:42 AM SAP GATHERER Gender Identity Not on file Sexual Orientation Not on file documented as of this encounter Progress Notes * Melany Kelly - 05/02/2024 10:26 AM CDT Insurance card received via fax and saved to media. documented in this encounter Plan of Treatment Not on file documented as of this encounter Visit Diagnoses Not on filedocumented in this encounter Care Teams Meter Repairer Relationship Specialty Start Date End Date Aditya Castro MD [address] [facility] [place] [address] PCP - General 10/17/19 Alondra Lambert, RN [address] [facility] [address] [place] [id number] Professor Of Pathology 03/06/24 documented as of this encounter
--- OUTSIDE RECORDS SUMMARY | 2024-09-07 19:13 | XMS_ITS | Encounter Summary ---
Author Organization [facility] Healthcare Address [address] [place] [address] Care Team Providers Care Talent Acquisition Assistant Name Role Phone Aditya Castro MD Primary Care Provider [phone] Alondra Lambert RN Unavailable [phone] Shannon Brock MD, [place] P. Unavailable [phone] Reason for Referral * (Routine) - Pending Review Specialty Diagnoses / Procedures Referred By Contac t Referred To Contact Diagnoses End stage renal disease (CMS/HCC) (HCC) Procedures Six Minute Walk - Jossie King MD [address] [place] [address] Phone: tel: fax: [facility] [address] [place] [address] Referral ID Status Reason Start Date Expiration Date V isits Requested Visits Authorized [id number] Pending Review 05/10/2024 06/09/2025 1 1 * Cardiology (Routine) - Pending Review Specialty Diagnoses / Procedures Referred By Contac t Referred To Contact Diagnoses End stage renal disease (CMS/HCC) (HCC) Procedures ECG 12 lead Jossie King MD [address] [place] [address] Phone: tel: fax: [address] [phone] Referral ID Status Reason Start Date Expiration Date V isits Requested Visits Authorized [id number] Pending Review 05/10/2024 06/09/2025 1 1 * Diagnostic Imaging (Routine) - Pending Review Specialty Diagnoses / Procedures Referred By Contac t Referred To Contact Diagnoses End stage renal disease (CMS/HCC) (HCC) Procedures XR Orthopantogram Panorex Jossie King MD [address] [address] Phone: tel: fax: [address] [phone] Referral ID Status Reason Start Date Expiration Date V isits Requested Visits Authorized [id number] Pending Review 05/10/2024 06/09/2025 1 1 * Diagnostic Imaging (Routine) - Pending Review Specialty Diagnoses / Procedures Referred By Contac t Referred To Contact Radiology Diagnoses End stage renal disease (CMS/HCC) (HCC) Procedures CT Abdomen Pelvis WO Contrast Jossie King MD [address] [address] Phone: tel: fax: [address] [phone] Referral ID Status Reason Start Date Expiration Date V isits Requested Visits Authorized [id number] Pending Review 05/10/2024 06/09/2025 1 1 Encounter Details Date Type Department Care Team (Late st Contact Info) Description 05/10/2024 Telephone [facility] Transplant Kidney [address] [facility] [address] [place] [address] Alondra Lambert, RN [address] [facility] [address] [place] [address] Social History Tobacco Use Types Packs/Day Years [...] the past 12 months has th e [employer], gas, oil, or water [employer] threatened to shut off services in your [...] often do you attend chur ch or quaker services? 1 to 4 times per year [...] file Legal Sex Male 3:42 AM HOSPITAL HOUSEKEEPER Gender Identity Not on file Sexual Orientation [...] are to call the transplant department at [phone]. Please schedule pt for the following Pt does dialysis PD Please obtain [phone]. Yes Transplant Education Video - this will [...] MINUTE WALK Routine 07/29/2024 2:46 PM HOSPITAL HOUSEKEEPER End stage renal disease (CMS/HCC) (HCC) documented in this encounter Results * Six Minute Walk - (07/29/2024 2:46 PM HOSPITAL HOUSEKEEPER) Anatomical Region Laterality Modality PFT Narrative 07/29/2024 3:52 PM HOSPITAL HOUSEKEEPER Table formatting from the original result was not included. Davey Pickard V., ORIENTAL MEDICINE PRACTITIONER on 07/29/2024 ??2:45 PM Table formatting from the original note was not included. 6 MINUTE WALK RESULTS Name: SamdreJuvenal Jr : 1970 DOS: 07/29/2024 Diagnosis: ESRD/KTE ORIENTAL MEDICINE PRACTITIONER performed walk: Carmenza Pickard Rest: 1 min [...] Abdomen Pelvis WO Contrast (07/29/2024 12:43 PM HOSPITAL HOUSEKEEPER) Anatomical Region Laterality Modality Body N/A Computed Tomogra phy 07/29/2024 1:04 PM HOSPITAL HOUSEKEEPER Impressions 07/29/2024 1:04 PM HOSPITAL HOUSEKEEPER 1. ??Moderate discontinuous atherosclerotic calcifications involve the [...] Teresa Rivera M.D. 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 Electronically signed by: Julio Pinedo M.D. Narrative 07/29/2024 12:59 PM HOSPITAL HOUSEKEEPER EXAMINATION: XR ORTHOPANTOGRAM/PANOREX HISTORY: Kidney Transplant Evaluation [...] * Type and screen (07/29/2024 11:23 AM HOSPITAL HOUSEKEEPER) Maribel, indirect Negative ABO Rh A Positive [facility] Blood 07/29/2024 11:2 3 AM HOSPITAL HOUSEKEEPER 07/29/2024 11:43 AM HOSPITAL HOUSEKEEPER Narrative [facility] - 07/29/2024 12:45 PM HOSPITAL HOUSEKEEPER Please draw the ABO and the Type and Screen as two separate blood draws with each stamped with the two different times stamps as this is a regulatory requirement for this patient to be listed for Kidney Transplant. ??This lab is being obtained as part of a Kidney transplant evaluation, is time sensitive, and should only be drawn during the evaluation visit at [facility]. Has the patient had Daratumumab or Isatuximab in the past 6 months?->Unknown Jossie King MD LAB BLOOD BANK ERNESTO T ORDERABLES Final Result [facility] [place] [address] * ECG 12 lead (07/29/2024 11:14 AM HOSPITAL HOUSEKEEPER) Ventricular Rate EKG/Min 117 BPM [facility] Atrial Rate 117 BPM [facility] AL-Interval (MSEC) 144 ms [facility] QRS-Interval (MSEC) 126 ms [facility] QT-Interval (MSEC) 366 ms [facility] QTc 510 ms [facility] R [place] -40 degrees [facility] T [place] 147 degrees [facility] Diagnosis Poor data quality, interpretation [...] SAL M.D ([id number]) on 07/29/2024 3:38:41 PM [facility] 07/29/2024 11:1 4 AM HOSPITAL HOUSEKEEPER 07/29/2024 3:38 PM HOSPITAL HOUSEKEEPER Jossie King MD ECG ORDERABLES Fi nal Result [facility] * PSA screen (07/29/2024 11:01 AM HOSPITAL HOUSEKEEPER) PSA-Total 0.55 <=3.90 ng/mL Comment: Interpretive Data [...] revised 21. Blood 07/29/2024 11:0 1 AM HOSPITAL HOUSEKEEPER 07/29/2024 11:33 AM HOSPITAL HOUSEKEEPER Narrative [facility] - 07/29/2024 12:39 PM HOSPITAL HOUSEKEEPER This lab is being obtained as part of a Kidney transplant evaluation, is time sensitive, and should only be drawn during the evaluation visit at [facility] Lab. Jossie King MD LAB BLOOD ORDERABL ES Final Result Performing Organization Address [facility] de Phone Number [facility] Department [place] [employer] [address] * Collection Task for HLA Antibody Screen (07/29/2024 11:01 AM HOSPITAL HOUSEKEEPER) HLA Antibody Screen By Single Antigen Received Blood 07/29/2024 11:0 1 AM HOSPITAL HOUSEKEEPER 07/29/2024 11:56 AM HOSPITAL HOUSEKEEPER Jossie King MD LAB BLOOD ORDERABL ES Final Result Performing Organization Address [facility] de Phone Number [facility] [place] [employer] [place] [address] * HLA Antibody Screen - SAB (Class I and Class II) (07/29/2024 11:01 AM HOSPITAL HOUSEKEEPER) Class I Treatment EDTA [facility] Class I [...] DR52 [facility] Blood 07/29/2024 11:0 1 AM HOSPITAL HOUSEKEEPER 08/02/2024 9:46 AM HOSPITAL HOUSEKEEPER Narrative [facility] - 08/02/2024 9:46 AM HOSPITAL HOUSEKEEPER Single-antigen HLA antibody screen is performed on serum samples using a method developed and validated by the [facility] laboratory based on an FDA-approved IVD kit (LABScreen Single-Antigen, [employer], [place], [place]). All patient serum samples are pretreated with EDTA before the screen to prevent complement interference. Additional serum treatments, such as adsorption and DTT treatment, may be performed as indicated. ??Interpretive comments: Low risk: MFI [id number]. Moderate risk: MFI 4028-3010. Increased risk: MFI >/= 5000. The presence [...] performed at the [facility], [address] [place] [address], 5th floor, [facility], [place], [address]. [place] # [id number]. Dorothy Meade, Ph.D., Harness Inspector, HLA Laboratory Rell Samuels M.D., Ph.D., Dental Nurse, HLA Laboratory Licha Nieto, Ph.D., CLIA Dental Nurse, [facility] Current methodology and interpretive comments last revised on 09/15/2022. Jossie King MD LAB BLOOD ORDERABL ES Final Result [facility] * Collection Task for HLA Typing 2, Patient (07/29/2024 11:01 AM HOSPITAL HOUSEKEEPER) HLA Class II DNA (DR, DQ, DP) Recipient Received Blood 07/29/2024 11:0 1 AM HOSPITAL HOUSEKEEPER 07/29/2024 11:56 AM HOSPITAL HOUSEKEEPER Jossie King MD LAB BLOOD ORDERABL ES Final Result Performing Organization Address City/[facility] Co de Phone Number [facility] Department [place] [address] * Collection Task for HLA Typing 1 (07/29/2024 11:01 AM HOSPITAL HOUSEKEEPER) HLA Class I DNA (ABC) Recipient Received Blood 07/29/2024 11:0 1 AM HOSPITAL HOUSEKEEPER 07/29/2024 11:56 AM HOSPITAL HOUSEKEEPER Jossie King MD LAB BLOOD ORDERABL ES Final Result Performing Organization Address [facility] Co de Phone Number [facility] Department [place] [address] * LR HLA Typing (Class I and Class II) (07/29/2024 11:01 AM HOSPITAL HOUSEKEEPER) r-SSO [facility] A First [place] A*03 [facility] [...] 07/30/24 [facility] Blood 07/29/2024 11:0 1 AM HOSPITAL HOUSEKEEPER 08/02/2024 9:03 AM HOSPITAL HOUSEKEEPER Narrative [facility] - 08/02/2024 9:03 AM HOSPITAL HOUSEKEEPER DNA was extracted from whole blood or buccal cell specimens, and relevant genomic regions were amplified by polymerase chain reactions (PCR). HLA typing was performed on PCR amplicons using reverse sequence-specific oligonucleotide (r-SSO) and/or sequence-specific primers (SSP) based techniques. r-SSO and SSP are FDA approved as IVD tests and validated by the [facility]. Testing performed at the [facility], [address] [place] [address], 5th floor, [place], [address]. [place] # [id number]. Dorothy Meade, Ph.D., Harness Inspector, HLA Laboratory Rell Samuels M.D., Ph.D., Dental Nurse, [facility] Laboratory Licha Nieto, Ph.D., CLIA Dental Nurse, [facility] Current methodology comment last revised on 04/25/17. Jossie King MD LAB BLOOD ORDERABL ES Final Result [facility] * (ABNORMAL) Uric acid (07/29/2024 11:01 AM HOSPITAL HOUSEKEEPER) Pathologist [facility] Uric acid 2.0(L) 3.0 - 8.0 mg/dL Blood 07/29/2024 11:0 1 AM HOSPITAL HOUSEKEEPER 07/29/2024 11:33 AM HOSPITAL HOUSEKEEPER Narrative [facility] - 07/29/2024 12:10 PM HOSPITAL HOUSEKEEPER This lab is being obtained as part of a Kidney transplant evaluation, is time sensitive, and should only be drawn during the evaluation visit at [address] Jossie King MD LAB BLOOD ORDERABL ES Final Result Performing Organization Address [facility] de Phone Number [facility] Department [place] [address] * Varicella Zoster IgG antibody Blood (07/29/2024 11:01 AM HOSPITAL HOUSEKEEPER) [facility] VZV IgG Reactive Reactive Comment:Reactive: Results diego ggest response to immunization or prior exposure to the virus. Blood 07/29/2024 11:0 1 AM HOSPITAL HOUSEKEEPER 07/29/2024 11:33 AM HOSPITAL HOUSEKEEPER Narrative [facility] 07/29/2024 1:45 PM HOSPITAL HOUSEKEEPER This lab is being obtained as part of a Kidney transplant evaluation, is time sensitive, and should only be drawn during the evaluation visit at [address] Jossie King MD LAB MICROBIOLOGY - GENERAL ORDERABLES Final Result Performing Organization Address [facility] Co de Phone Number [facility] [place] [address] * RPR Blood (07/29/2024 11:01 AM HOSPITAL HOUSEKEEPER) Pathologist [facility] RPR Nonreactive Nonreactive Blood 07/29/2024 11:0 1 AM HOSPITAL HOUSEKEEPER 07/29/2024 11:33 AM HOSPITAL HOUSEKEEPER Narrative [facility] - 07/29/2024 12:34 PM HOSPITAL HOUSEKEEPER This lab is being obtained as part of a Kidney transplant evaluation, is time sensitive, and should only be drawn during the evaluation visit at [address] Jossie King MD LAB MICROBIOLOGY - GENERAL ORDERABLES Final Result Performing Organization Address [facility] de Phone Number [facility] [place] [employer] [place] [address] * (ABNORMAL) Protime-INR (07/29/2024 11:01 AM HOSPITAL HOUSEKEEPER) Pathologist [facility] PT 50.6(H) 9.7 - 13.0 sec INR 4.54(H) 0.90 - 1.20 [facility] Comment: Interpretive data Oral anticoagulant therapeutic ranges: Venous thromboembolism prophylaxis or treatment: 2.0-3.0 CARDIOLOGY Standard range: 2.0-3.0 High-intensity range: 2.5-3.5 Refer to indication-specific guidelines for appropriate target ranges for prosthetic heart valve replacement. Current interpretive data was last revised on 2019. Blood 07/29/2024 11:0 1 AM HOSPITAL HOUSEKEEPER 07/29/2024 11:32 AM HOSPITAL HOUSEKEEPER Narrative [facility] 07/29/2024 11:42 AM HOSPITAL HOUSEKEEPER This lab is being obtained as part of a Kidney transplant evaluation, is time sensitive, and should only be drawn during the evaluation visit at [address] Jossie King MD LAB BLOOD ORDERABL ES Final Result Performing Organization Address [facility] de Phone Number [facility] [place] [address] * Protein, urine, random (07/29/2024 11:01 AM HOSPITAL HOUSEKEEPER) Pathologist [facility] Protein, ur, quant 121.2 mg/dL Comment: Interpretive Data No reference range established. Current interpretive data was last revised 2019. Urine 07/29/2024 11:0 1 AM HOSPITAL HOUSEKEEPER 07/29/2024 11:32 AM HOSPITAL HOUSEKEEPER Narrative [facility] 07/29/2024 12:18 PM HOSPITAL HOUSEKEEPER This lab is being obtained as part of a Kidney transplant evaluation, is time sensitive, and should only be drawn during the evaluation visit at [address] Lab[address] Jossie King MD LAB URINE ORDERABL ES Final Result Performing Organization Address [facility] de Phone Number [facility] [place] [address] * (ABNORMAL) Phosphorus (07/29/2024 11:01 AM HOSPITAL HOUSEKEEPER) Phosphorus, pl 5.1(H) 2.3 - 4.5 mg/dL Blood 07/29/2024 11:0 1 AM HOSPITAL HOUSEKEEPER 07/29/2024 11:33 AM HOSPITAL HOUSEKEEPER Narrative [facility] 07/29/2024 12:10 PM HOSPITAL HOUSEKEEPER This lab is being obtained as part of a Kidney transplant evaluation, is time sensitive, and should only be drawn during the evaluation visit at [address] Lab[address] Jossie King MD LAB BLOOD ORDERABL ES Final Result Performing Organization Address [facility] [place] [address] * (ABNORMAL) aPTT (07/29/2024 11:01 AM HOSPITAL HOUSEKEEPER) aPTT 61(H) 28 - 38 sec Comment: Interpretive Data Heparin therapeutic range: 66.0 - 100.0 seconds. Range based on correlation with therapeutic heparin activity range of 0.3 - 0.7 Units/mL. Current interpretive data was last revised on 2023. Blood 07/29/2024 11:0 1 AM HOSPITAL HOUSEKEEPER 07/29/2024 11:32 AM HOSPITAL HOUSEKEEPER Narrative [facility] 07/29/2024 11:42 AM HOSPITAL HOUSEKEEPER This lab is being obtained as part of a Kidney transplant evaluation, is time sensitive, and should only be drawn during the evaluation visit at [address] Jossie King MD LAB BLOOD ORDERABL ES Final Result Performing Organization Address [facility] de Phone Number [facility] [place] [address] * (ABNORMAL) PTH (07/29/2024 11:01 AM HOSPITAL HOUSEKEEPER) [facility] PTH 444(H) 15 - 65 pg/mL Blood 07/29/2024 11:0 1 AM HOSPITAL HOUSEKEEPER 07/29/2024 11:34 AM HOSPITAL HOUSEKEEPER Narrative [facility] - 07/29/2024 12:02 PM HOSPITAL HOUSEKEEPER This lab is being obtained as part of a Kidney transplant evaluation, is time sensitive, and should only be drawn during the evaluation visit at [address] Lab[address] Jossie King MD LAB BLOOD ORDERABL ES Final Result Performing Organization Address [facility] de Phone Number [facility] [place] [address] * (ABNORMAL) Lipid panel (07/29/2024 11:01 AM HOSPITAL HOUSEKEEPER) [facility] Cholesterol 114 30 - 199 [...] revised on 2018. Triglycerides 66 <=149 mg/dL [facility] Comment: Interpretive Data Ages < or = [...] revised on 2018. HDL 29(L) >=40 mg/dL [facility] Comment: Interpretive Data Ages < or = [...] on 2018. LDL, calculated 71 <=129 mg/dL [facility] Comment: Interpretive Data Ages < or = [...] revised on 2024. Non-HDL Cholesterol 85 mg/dL [facility] Comment: Interpretive Data Ages < or = [...] last revised on 2018. Chol/HDL ratio 4 [facility] Blood 07/29/2024 11:0 1 AM HOSPITAL HOUSEKEEPER 07/29/2024 11:33 AM HOSPITAL HOUSEKEEPER Narrative [facility] - 07/29/2024 12:10 PM HOSPITAL HOUSEKEEPER This lab is being obtained as part of a Kidney transplant evaluation, is time sensitive, and should only be drawn during the evaluation visit at [facility] Lab. Jossie King MD LAB BLOOD ORDERABL ES Final Result Performing Organization Address [facility] Co de Phone Number [facility] [place] [address] * (ABNORMAL) Iron profile w/ IBC (07/29/2024 11:01 AM HOSPITAL HOUSEKEEPER) [facility] Iron 62 50 - 150 mcg/dL TIBC 208(L) 250 - 400 mcg/dL [facility] Transferrin saturation 30 20 - 50 % [facility] Blood 07/29/2024 11:0 1 AM HOSPITAL HOUSEKEEPER 07/29/2024 11:33 AM HOSPITAL HOUSEKEEPER Narrative [facility] - 07/29/2024 12:10 PM HOSPITAL HOUSEKEEPER This lab is being obtained as part of a Kidney transplant evaluation, is time sensitive, and should only be drawn during the evaluation visit at [address] Lab[address] Jossie King MD LAB BLOOD ORDERABL ES Final Result Performing Organization Address [facility] de Phone Number [facility] [place] [address] * Hepatitis C antibody Blood (07/29/2024 11:01 AM HOSPITAL HOUSEKEEPER) [facility] Hep C Ab Nonreactive Nonreactive Comment:Antibodies to HCV no t detected. Does NOT exclude the possibility of recent exposure to HCV. Current interpretive data was last revised on 22 Blood 07/29/2024 11:0 1 AM HOSPITAL HOUSEKEEPER 07/29/2024 11:32 AM HOSPITAL HOUSEKEEPER Narrative [facility] - 07/29/2024 12:47 PM HOSPITAL HOUSEKEEPER This lab is being obtained as part of a Kidney transplant evaluation, is time sensitive, and should only be drawn during the evaluation visit at [address] Lab[address] Jossie iKng MD LAB MICROBIOLOGY - GENERAL ORDERABLES Final Result Performing Organization Address [facility] Co de Phone Number [facility] [place] [address] * Hepatitis B Surface Antigen Blood (07/29/2024 11:01 AM HOSPITAL HOUSEKEEPER) Pathologist [facility] HepBsAg Nonreactive Nonreactive Blood 07/29/2024 11:0 1 AM HOSPITAL HOUSEKEEPER 07/29/2024 11:32 AM HOSPITAL HOUSEKEEPER Narrative [facility] - 07/29/2024 12:47 PM HOSPITAL HOUSEKEEPER This lab is being obtained as part of a Kidney transplant evaluation, is time sensitive, and should only be drawn during the evaluation visit at [address] Lab[address] Jossie King MD LAB MICROBIOLOGY - GENERAL ORDERABLES Final Result Performing Organization Address City/[facility] Co de Phone Number [facility] [place] [employer] [place] [address] * Hepatitis B surface antibody (immune status) Blood (07/29/2024 11:01 AM HOSPITAL HOUSEKEEPER) [facility] HBsAb (immune status) Reactive Comment:This result is consi stent with immunity to Hepatitis B Virus when used in the setting of routine screening. Current interpretive data was last revised on 22 Blood 07/29/2024 11:0 1 AM HOSPITAL HOUSEKEEPER 07/29/2024 11:32 AM HOSPITAL HOUSEKEEPER Narrative [facility] - 07/29/2024 12:47 PM HOSPITAL HOUSEKEEPER This lab is being obtained as part of a Kidney transplant evaluation, is time sensitive, and should only be drawn during the evaluation visit at [address] Jossie King MD LAB MICROBIOLOGY - GENERAL ORDERABLES Final Result [facility] [place] [employer] [place] [address] * Hepatitis B core antibody, total Blood (07/29/2024 11:01 AM HOSPITAL HOUSEKEEPER) [facility] Hep B core IgG/IgM Nonreactive Nonreactive Blood 07/29/2024 11:0 1 AM HOSPITAL HOUSEKEEPER 07/29/2024 11:32 AM HOSPITAL HOUSEKEEPER Narrative [facility] - 07/29/2024 12:47 PM HOSPITAL HOUSEKEEPER This lab is being obtained as part of a Kidney transplant evaluation, is time sensitive, and should only be drawn during the evaluation visit at [address] Result [facility] Jossie King MD LAB MICROBIOLOGY - GENERAL ORDERABLES Final Result Performing Organization Address [facility] de Phone Number [facility] [place] [address] * (ABNORMAL) Hemoglobin A1c (07/29/2024 11:01 AM HOSPITAL HOUSEKEEPER) [facility] Hgb A1C 9.0(H) 4.0 - 5.6 % Estimated Average Glucose 212 mg/dL [facility] Comment: The ADA recommends reporting an estimated Average Glucose (eAG) with all Hemoglobin A1c results using the equation derived from a study of 507 normal and diabetic adults. ??Minority populations were underrepresented and children were not included. ?? (Diabetes Care 2020; 43(S1): S66-S76). ??The eAG is not equivalent to a fasting glucose. Blood 07/29/2024 11:0 1 AM HOSPITAL HOUSEKEEPER 07/29/2024 11:34 AM HOSPITAL HOUSEKEEPER Narrative [facility] - 07/29/2024 11:53 AM HOSPITAL HOUSEKEEPER This lab is being obtained as part of a Kidney transplant evaluation, is time sensitive, and should only be drawn during the evaluation visit at [address] Jossie King MD LAB BLOOD ORDERABL ES Final Result Performing Organization Address [facility] [facility] de Phone Number [facility] [place] [address] * HSV 2 IgG Antibody Blood (07/29/2024 11:01 AM HOSPITAL HOUSEKEEPER) [facility] HSV 2 IgG Nonreactive Nonreactive Comment: Interpretive Data 1. Nonreactive: No detectable IgG antibody to HSV-2. 2. Equivocal: Presence or absence of detectable antibodies to HSV-2 cannot be determined and the test should be repeated. 3. Reactive: Indicates presence of detectable IgG antibody to HSV-2. Current interpretive data was last revised on 2022. Blood 07/29/2024 11:0 1 AM HOSPITAL HOUSEKEEPER 07/29/2024 11:33 AM HOSPITAL HOUSEKEEPER Narrative [facility] - 07/29/2024 1:44 PM HOSPITAL HOUSEKEEPER This lab is being obtained as part of a Kidney transplant evaluation, is time sensitive, and should only be drawn during the evaluation visit at [address] Jossie King MD LAB MICROBIOLOGY - GENERAL ORDERABLES Final Result [facility] [place] [employer] [place] [address] * (ABNORMAL) HSV 1 IgG Antibody Blood (07/29/2024 11:01 AM HOSPITAL HOUSEKEEPER) Pathologist [facility] HSV 1 IgG Reactive( A) Nonreactive Comment: Interpretive Data 1. Nonreactive: No detectable IgG antibody to HSV-1. 2. Equivocal: Presence or absence of detectable antibodies to HSV-1 cannot be determined and the test should be repeated. 3. Reactive: Indicates presence of detectable IgG antibody to HSV-1. Current interpretive data was last revised on 2016. Blood 07/29/2024 11:0 1 AM HOSPITAL HOUSEKEEPER 07/29/2024 11:33 AM HOSPITAL HOUSEKEEPER Narrative [facility] - 07/29/2024 1:44 PM HOSPITAL HOUSEKEEPER This lab is being obtained as part of a Kidney transplant evaluation, is time sensitive, and should only be drawn during the evaluation visit at [address] Lab[address] Jossie King MD LAB MICROBIOLOGY - GENERAL ORDERABLES Final Result [facility] [place] [address] * HIV 1/2 Antibody plus p24 Antigen Blood (07/29/2024 11:01 AM HOSPITAL HOUSEKEEPER) Pathologist [facility] HIV 1/2 ab + p24 ag Nonreactive Nonreactive Comment:Nonreactive for HIV- 1 antigen and HIV-1/HIV-2 antibodies. No laboratory evidence of HIV infection. If acute HIV infection is suspected, consider testing for HIV-1 RNA. Current interpretive data was last revised on 22. Blood 07/29/2024 11:0 1 AM HOSPITAL HOUSEKEEPER 07/29/2024 11:32 AM HOSPITAL HOUSEKEEPER Narrative [facility] - 07/29/2024 12:13 PM HOSPITAL HOUSEKEEPER This lab is being obtained as part of a Kidney transplant evaluation, is time sensitive, and should only be drawn during the evaluation visit at [address] Jossie King MD LAB MICROBIOLOGY - GENERAL ORDERABLES Final Result Performing Organization Address [facility] Co de Phone Number [facility] [place] [address] * Gamma GT (07/29/2024 11:01 AM HOSPITAL HOUSEKEEPER) Pathologist [facility] GGT 22 10 - 50 Units/L Blood 07/29/2024 11:0 1 AM HOSPITAL HOUSEKEEPER 07/29/2024 11:33 AM HOSPITAL HOUSEKEEPER Narrative [facility] - 07/29/2024 12:40 PM HOSPITAL HOUSEKEEPER This lab is being obtained as part of a Kidney transplant evaluation, is time sensitive, and should only be drawn during the evaluation visit at [address] Jossie King MD LAB BLOOD ORDERABL ES Final Result Performing Organization Address [facility] Co de Phone Number [facility] Department [place] [employer] [place] [address] * (ABNORMAL) Ferritin (07/29/2024 11:01 AM HOSPITAL HOUSEKEEPER) Pathologist [facility] Ferritin 761(H) 30 - 400 ng/mL Blood 07/29/2024 11:0 1 AM HOSPITAL HOUSEKEEPER 07/29/2024 11:33 AM HOSPITAL HOUSEKEEPER Narrative [facility] - 07/29/2024 12:10 PM HOSPITAL HOUSEKEEPER This lab is being obtained as part of a Kidney transplant evaluation, is time sensitive, and should only be drawn during the evaluation visit at [address] Lab[address] Jossie King MD LAB BLOOD ORDERABL ES Final Result Performing Organization Address [facility] de Phone Number [facility] [place] [address] * (ABNORMAL) Madiha-Ca virus (EBV) antibody panel Blood (07/29/2024 11:01 AM HOSPITAL HOUSEKEEPER) [facility] EBV nuclear Ab Positive(A) Negative Comment:Indicates the presen ce of detectable IgG antibody to EBV Nuclear Antigen. EBV VCA IgG Positive(A) Negative [facility] Comment:Indicates the presen ce of antibody; 90% of the adult population will have been infected with EBV sometime in the past. EBV VCA IgM Negative Negative [facility] Comment:No detectable IgM an tibody to EBV-VCA. A negative result indicates no current infection with EBV. If clinical suspicion of acute EBV infection is present, testing should be repeated after one week. EBV interp Past Infection [facility] Blood 07/29/2024 11:0 1 AM HOSPITAL HOUSEKEEPER 07/29/2024 11:33 AM HOSPITAL HOUSEKEEPER Narrative [facility] - 07/29/2024 1:43 PM HOSPITAL HOUSEKEEPER This lab is being obtained as part of a Kidney transplant evaluation, is time sensitive, and should only be drawn during the evaluation visit at [address] Lab[address] Jossie King MD LAB MICROBIOLOGY - GENERAL ORDERABLES Final Result Performing Organization Address [facility] Co de Phone Number [facility] [place] [address] * Creatinine, urine, random (07/29/2024 11:01 AM HOSPITAL HOUSEKEEPER) [facility] Creatinine Ur 167.1 mg/dL Comment: Interpretive Data No reference range established. Current interpretive data was last revised 2019. Urine 07/29/2024 11:0 1 AM HOSPITAL HOUSEKEEPER 07/29/2024 11:32 AM HOSPITAL HOUSEKEEPER Narrative [facility] - 07/29/2024 12:18 PM HOSPITAL HOUSEKEEPER This lab is being obtained as part of a Kidney transplant evaluation, is time sensitive, and should only be drawn during the evaluation visit at [facility] Lab. Jossie King MD LAB URINE ORDERABL ES Final Result [facility] [place] [address] * (ABNORMAL) Comprehensive metabolic panel (07/29/2024 11:01 AM HOSPITAL HOUSEKEEPER) Sodium 136 135 - 145 mmol/L Potassium, pl 4.6 3.3 - 4.9 mmol/L [facility] Chloride 93(L) 97 - 110 mmol/L [facility] CO2 26 22 - 32 mmol/L [facility] Anion gap 17(H) 2 - 15 mmol/L [facility] BUN 65(H) 6 - 25 mg/dL [facility] Creatinine 8.07(H) 0.80 - 1.30 mg/dL [facility] Glucose 280(H) 70 - 199 mg/dL [facility] Comment: Interpretive Data Fasting glucose >/= 126 [...] 2022. Calcium 9.4 8.5 - 10.3 mg/dL [facility] Bilirubin, total 0.3 0.1 - 1.2 mg/dL [facility] Protein, pl 7.2 6.5 - 8.5 g/dL [facility] Albumin 3.8 3.5 - 5.0 g/dL [facility] Alk phos 99 40 - 130 Units/L [facility] ALT 30 7 - 55 Units/L [facility] AST 31 10 - 50 Units/L [facility] Blood 07/29/2024 11:0 1 AM HOSPITAL HOUSEKEEPER 07/29/2024 11:33 AM HOSPITAL HOUSEKEEPER Narrative [facility] - 07/29/2024 12:10 PM HOSPITAL HOUSEKEEPER This lab is being obtained as part of a Kidney transplant evaluation, is time sensitive, and should only be drawn during the evaluation visit at [address] Jossie King MD LAB BLOOD ORDERABL ES Final Result Performing Organization Address [facility] Co de Phone Number [facility] [place] [employer] [place] [address] * (ABNORMAL) CMV, IgG Blood (07/29/2024 11:01 AM HOSPITAL HOUSEKEEPER) Pathologist [facility] CMV IgG Positive( A) Negative Comment: Interpretive [...] CMV infection. Blood 07/29/2024 11:0 1 AM HOSPITAL HOUSEKEEPER 07/29/2024 11:33 AM HOSPITAL HOUSEKEEPER Narrative [facility] - 07/29/2024 1:44 PM HOSPITAL HOUSEKEEPER This lab is being obtained as part of a Kidney transplant evaluation, is time sensitive, and should only be drawn during the evaluation visit at [address] Jossie King MD LAB MICROBIOLOGY - GENERAL ORDERABLES Final Result Performing Organization Address City/[facility]/ZIP Co de Phone Number [facility] [place] [address] * (ABNORMAL) CBC with auto differential (07/29/2024 11:01 AM HOSPITAL HOUSEKEEPER) [facility] WBC 5.1 3.8 - 9.9 K/cumm Hgb 11.5(L) 13.0 - 17.5 g/dL [facility] Hct 34.4(L) 38.9 - 50.3 % [facility] Plt 208 150 - 400 K/cumm [facility] MPV 10.8 9.1 - 12.3 fL [facility] RBC 3.76(L) 4.30 - 5.80 M/cumm [facility] MCV 91.5 81.3 - 96.4 fL [facility] MCH 30.6 27.1 - 33.3 pg [facility] MCHC 33.4 32.3 - 35.7 g/dL [facility] RDW CV 14.3 11.1 - 14.9 % [facility] RDW SD 47.9 35.7 - 48.1 fL [facility] NRBC abs 0.00 0.00 - 0.01 K/cumm [facility] Blood 07/29/2024 11:0 1 AM HOSPITAL HOUSEKEEPER 07/29/2024 11:34 AM HOSPITAL HOUSEKEEPER Narrative [facility] - 07/29/2024 11:45 AM HOSPITAL HOUSEKEEPER This lab is being obtained as part of a Kidney transplant evaluation, is time sensitive, and should only be drawn during the evaluation visit at [facility] Lab. us Jossie King MD LAB BLOOD ORDERABL ES Final Result [facility] [place] [address] * (ABNORMAL) Urinalysis reflex to microscopic (07/29/2024 10:53 AM HOSPITAL HOUSEKEEPER) Color, ur Yellow Yellow Clarity, ur Cloudy(A) Clear [facility] Specific gravity, ur 1.022 1.003 - 1.030 [facility] pH, urine 6.0 [facility] Comment: Interpretive Data ? Urine pH is affected by diet, medications, systemic acid-base disturbances, and renal tubular function. ??pH may affect urinary stone formation. ??For example, urine pH below 6.0 may help reduce the tendency for calcium phosphate stones and pH greater than 6.0 may reduce the tendency for uric acid stone formation. Source: [facility] Laboratories Current Interpretive Data was last revised on 2017 Protein, ur ql 2+(A) Negative [facility] Glucose, ur ql 4+(A) Negative [facility] Ketones, ur Negative Negative [facility] Bilirubin, ur Negative Negative [facility] Blood, ur 3+(A) Negative [facility] Urobilinogen, ur <2.0 <2.0 mg/dL [facility] Nitrite, ur Negative Negative [facility] Leukocyte esterase, ur 2+(A) Negative [facility] UA reflex comment Reflex to microscopic UA will be performed. [facility] Urine 07/29/2024 10:5 3 AM HOSPITAL HOUSEKEEPER 07/29/2024 11:27 AM HOSPITAL HOUSEKEEPER Narrative [facility] - 07/29/2024 11:29 AM HOSPITAL HOUSEKEEPER This lab is being obtained as part of a Kidney transplant evaluation, is time sensitive, and should only be drawn during the evaluation visit at [facility] Lab. Jossie King MD LAB URINE ORDERABL ES Final Result [facility] [place] [address] documented in this encounter Visit Diagnoses Diagnosis [...] disease documented in this encounter Care Teams Talent Acquisition Assistant Relationship Specialty Start Date End Date Aditya Castro MD [address] [facility] [place] [address] PCP - General 10/17/19 Alondra Lambert, RN [address] [facility] [address] [place] [address] Jacker 03/06/24 Hamlet Ortega Jr., MD [address] [place] [address] Consulting Physician Cardiovascular Disease 05/10/24 documented as of this encounter
--- OUTSIDE RECORDS SUMMARY | 2024-09-07 19:14 | XMS_ITS | Encounter Summary ---
Author Organization [facility] Healthcare Address [address] [place] [address] Care Team Providers Care Medical Insurance Verifier Name Role Phone Aditya Castro MD Primary Care Provider [phone] Reason for Visit * Reason Comments Post-op Open Heart Surgery 10/17/23 AVR ( 27 mm On-X mechanical), CABGx3, Sternal Plating Encounter Details Date Type Department Care Team (Late st Contact Info) Description 11/22/2023 9:30 AM CDT Office Visit Cardiovascular and Thoracic Surgery [address] [facility] [address] [place] [address] Lorne Mcnulty MD [address] [facility] [address] [place] [address] 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 Teran within next month. Dr. Ramaden or your Primary care doctor needs to take over your Coumadin (warfarin) regulation and bloodwork Possible CoaguCheck machine for home blood test, ASK the doctor who will take over your anticoagulation if he/she will order this INR GOAL FOR ON-X MECHANICAL AORTIC VALVE REPLACEMENT: 2.0-2.5 UNTIL JANUARY 14 THEN CAN DECREASE INR GOAL TO 1.5-2.0 LONG TERM Antibiotic Prophylaxis before dental visits for prevention of valve endocarditis Antibiotic Prophylaxis Taking an antibiotic before or immediately after a surgical procedure in order to prevent an infection is called antibiotic prophylaxis. It may be recommended by a primary doctor, a assistant sales manager, or an orthopedist for patients who are [...] Care Everywhere. 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
--- OUTSIDE RECORDS SUMMARY | 2024-09-07 19:14 | XMS_ITS | Encounter Summary ---
Author Organization [facility] Healthcare Address [address] [place] [address] Care Team Providers Care Gas Pumper Name Role Phone Aditya Castro MD Primary Care Provider [phone] Reason for Visit * Auth/Cert (Routine) Specialty Diagnoses / Procedures Referred By Aguilar t Referred To Contact Referral ID Status Reason Start Date Expiration Date Visits Re quested Visits Authorized [id number] 1 1 Encounter Details Date Type Department Care Team (Late st Contact Info) Description 11/23/2023 12:00 PM CDT Home Care Visit [address] [address] [address] [place] [address] Miriam Syed RN SN HOME VISIT Social [...] materials from doctor or pharmacy Never 11/05/2023 [facility] Utilities Answer Date Recorded In the past 12 months has th e [employer], gas, oil, or water company threatened to [...] any clubs o r organizations such as yarsani groups, unions, fraternal or athletic groups, or [...] file 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
--- OUTSIDE RECORDS SUMMARY | 2024-09-07 19:14 | XMS_ITS | Encounter Summary ---
Author Organization [facility] Healthcare Address [address] [place] [address] Care Team Providers Care Tombstone Carver Name Role Phone Aditya Castro MD Primary Care Provider [phone] Reason for Visit * Reason Onset Date Comments Anticoagulation 11/09/2023 Encounter Details Date Type Department Care Team (Late st Contact Info) Description 11/09/2023 Telephone Cardiovascular and Thoracic Surgery [address] [facility] [address] [place] [address] Margoth Grewal RN [address] [facility] [address], [place] [address] Anticoagulation Social History Tobacco Use [...] from doctor or pharmacy Never 11/05/2023 [facility] Utilities Answer Date Recorded In the past 12 months has e [employer], [employer], or [employer] threatened to shut off services in your [...] on file 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 DEPT [place] [address] PCP - General 10/17/19 documented as of this encounter
--- OUTSIDE RECORDS SUMMARY | 2024-09-07 19:14 | XMS_ITS | Encounter Summary ---
Author Organization [facility] Healthcare Address [address] [place] [address] Care Team Providers Care Fertilizing Machine Operator Name Role Phone Aditya Castro MD Primary Care Provider [phone] Reason for Visit * Reason Onset Date Comments Anticoagulation 11/13/2023 Encounter Details Date Type Department Care Team (Late st Contact Info) Description 11/13/2023 Telephone Cardiovascular and Thoracic Surgery [address] [facility] [address] [place] [address] Margoth Grewal RN [address] [facility] [address], [place] [address] Anticoagulation Social History Tobacco Use [...] materials from doctor or pharmacy Never 11/05/2023 [facility] Utilities Answer Date Recorded In the past 12 months has e [employer], [employer], or [employer] threatened to shut off services in your [...] on file Legal 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 Mcnulty Contact: Miriam with [facility] Home Care calling to report INR 2.1. New dosing instructions INR 2.1 Continue Coumadin 2 mg daily for ON-X mechanical AVR. Recheck INR 11/16/23. Miriam will instruct pt. documented in this encounter Plan of Treatment Not on file documented as of this encounter Visit Diagnoses Not on filedocumented in this encounter Care Teams Fertilizing Machine Operator Relationship Specialty Start Date End Date Aditya Castro MD [address] [place] [address] [place] [address] PCP - General 10/17/19 documented as of this encounter
--- OUTSIDE RECORDS SUMMARY | 2024-09-07 19:14 | XMS_ITS | Encounter Summary ---
Author Organization [facility] Healthcare Address [address] [place] [address] Care Team Providers Care Railroad Crossing Protection Maintainer Name Role Phone Aditya Castro MD Primary Care Provider [phone] Reason for Visit * Auth/Cert (Routine) Specialty Diagnoses / Procedures Referred By Aguilar t Referred To Contact Referral ID Status Reason Start Date Expiration Date Visits Re quested Visits Authorized [id number] 1 1 Encounter Details Date Type Department Care Team (Late st Contact Info) Description 11/16/2023 12:00 PM CDT Home Care Visit [address] [place] [address] Miriam Syed RN SN HOME VISIT Social [...] materials from doctor or pharmacy Never 11/05/2023 [facility] Utilities Answer Date Recorded In the past 12 months has th e [employer], gas, oil, or water company threatened to [...] often do you attend chur ch or orthodoxy services? 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 Gender Identity Not on file Sexual [...] Details Visit Type -SN Home Visit Discipline -[facility] Problems Problem Description Start Date Status Goals Interve ntions Homebound Status Disciplines: Skilled Disciplines Patient's homebound status 11/05/2023 Active 1 goal linked to scheduled/documen marcelo intervention 1 goal intervention scheduled/documen marcelo in this visit Medications Disciplines: [facility] Management of home medications 11/05/2023 Active 1 goal linked to scheduled/documen marcelo intervention 2 goal interventions scheduled/documen marcelo in this visit Monitor patient's vital signs every home health visit Disciplines: SN, PT, OT, VIDEO GAME ANIMATOR, WELDING MACHINE OPERATOR GAS, Skilled Disciplines Monitor patient's vital signs every home health visit. 11/05/2023 Active 1 goal linked to scheduled/documen marcelo intervention 1 goal intervention scheduled/documen marcelo in this visit Labs Disciplines: [facility] Management of specimen samples, including lab draws, [...] visit during episode of care Description: Home lens maker to measure vital signs during every home [...] Scheduled documented in this encounter Care Teams Railroad Crossing Protection Maintainer Relationship Specialty Start Date End Date Aditya Castro MD [address] [facility] [place] [address] PCP - General 10/17/19 documented as of this encounter
--- OUTSIDE RECORDS SUMMARY | 2024-09-07 19:14 | XMS_ITS | Encounter Summary ---
Author Organization [facility] Healthcare Address [address] [place] [address] Care Team Providers Care Glove Factory Sewer Name Role Phone Aditya Castro MD Primary Care Provider [phone] Reason for Visit * Auth/Cert (Routine) Specialty Diagnoses / Procedures Referred By Aguilar t Referred To Contact Referral ID Status Reason Start Date Expiration Date Visits Re quested Visits Authorized [id number] 1 1 Encounter Details Date Type Department Care Team (Late st Contact Info) Description 11/27/2023 10:30 AM CDT Home Care Visit [facility] [address] [address] [address] [place] [address] Miriam Syed RN SN HOME VISIT Social [...] materials from doctor or pharmacy Never 11/05/2023 [facility] Utilities Answer Date Recorded In the past 12 months has th e [employer], gas, oil, or water company threatened to [...] on file 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 Gender Identity Not on file Sexual [...] Details Visit Type -SN Home Visit Discipline -Halfway Problems Problem Description Start Date Status Goals Interve ntions Homebound Status Disciplines: Skilled Disciplines Patient's homebound status 11/05/2023 Active 1 goal linked to scheduled/documen marcelo intervention 1 goal intervention scheduled/documen marcelo in this visit Medications Disciplines: Halfway Management of home medications 11/05/2023 Active 1 goal linked to scheduled/documen marcelo intervention 2 goal interventions scheduled/documen marcelo in this visit Monitor patient's vital signs every home health visit Disciplines: SN, PT, OT, SURGICAL GARMENT FITTER, MASTER STEAM YACHT, Skilled Disciplines Monitor patient's vital signs every home health visit. 11/05/2023 Active 1 goal linked to scheduled/documen marcelo intervention 1 goal intervention scheduled/documen marcelo in this visit Labs Disciplines: Halfway Management of specimen samples, including lab draws, [...] visit during episode of care Description: Home electric tool repairer to measure vital signs during every home [...] Scheduled documented in this encounter Care Teams Glove Factory Sewer Relationship Specialty Start Date End Date Aditya Castro MD [address] [facility] [place] [address] PCP - General 10/17/19 documented as of this encounter
--- OUTSIDE RECORDS SUMMARY | 2024-09-07 19:14 | XMS_ITS | Encounter Summary ---
Author Organization [facility] Healthcare Address [address] [place] [address] Care Team Providers Care Core Drilling Supervisor Name Role Phone Aditya Castro MD Primary Care Provider [phone] Reason for Visit * Auth/Cert (Routine) Specialty Diagnoses / Procedures Referred By Aguilar t Referred To Contact Referral ID Status Reason Start Date Expiration Date Visits Re quested Visits Authorized [id number] 1 1 Encounter Details Date Type Department Care Team (Late st Contact Info) Description 12/01/2023 10:30 AM CDT Home Care Visit [address] [place] [address] Miriam Syed RN SN OASIS DISCHARGE Social [...] materials from doctor or pharmacy Never 12/01/2023 [facility] Utilities Answer Date Recorded In the past 12 months has th e [employer], gas, oil, or water company threatened to [...] on file 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 Gender Identity Not on file Sexual [...] with no concerns, scabs in place and RANGE SCIENTIST Patient aware to f/u with PCP for [...] Visit Type -SN OASIS Dischar ge Discipline -Shelter Problems Problem Description Start Date Status Goals Interve ntions Homebound Status Disciplines: Skilled Disciplines Patient's homebound status 11/05/2023 Resolved on 12/01/2023 1 goal linked to scheduled/docume nted intervention 1 goal intervention scheduled/documen marcelo in this visit Medications Disciplines: Shelter Management of home medications 11/05/2023 Resolved on 12/01/2023 1 goal linked to scheduled/docume nted intervention 2 goal interventions scheduled/documen marcelo in this visit Monitor patient's vital signs every home health visit Disciplines: SN, PT, OT, PUBLIC WELFARE WORKER, HAND CLOTH EXAMINER, Skilled Disciplines Monitor patient's vital signs every home health visit. 11/05/2023 Resolved on 12/01/2023 1 goal linked to scheduled/docume nted intervention 2 goal interventions scheduled/documen marcelo in this visit Labs Disciplines: Shelter Management of specimen samples, including lab draws, [...] visit during episode of care Description: Home cisco certified network associate to measure vital signs during every home health visit during episode of care. Monitor patient's vital signs every home health visit Adequate for Discharge No Home cisco certified network associate to measure vital signs during every home [...] techniques. documented in this encounter Care Teams Core Drilling Supervisor Relationship Specialty Start Date End Date Aditya Castro MD [address] [facility] [place] [address] PCP - General 10/17/19 documented as of this encounter
--- OUTSIDE RECORDS SUMMARY | 2024-09-07 19:14 | XMS_ITS | Encounter Summary ---
Author Organization [facility] Healthcare Address [address] [place] [address] Care Team Providers Care Engineering Supplies Sales Name Role Phone Aditya Castro MD Primary Care Provider [phone] Encounter Details Date Type Department Care Team (Late st Contact Info) Description 11/04/2023 Telephone [facility] Home Care Services [address] [place] [address] Lissette Slade Social History Tobacco Use Types [...] materials from doctor or pharmacy Never 11/05/2023 [facility] Utilities Answer Date Recorded In the past 12 months has [facility] [employer], gas, oil, or water company threatened to [...] on file 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 Interviewed patient via phone post hospitalization. [facility] Confirmed homebound status. Informed patient that staff will be calling within 48 hours regarding an appointment. documented in this encounter Plan of Treatment Not on file documented as of this encounter Visit Diagnoses Not on filedocumented in this encounter Care Teams Engineering Supplies Sales Relationship Specialty Start Date End Date Aditya Castro MD [address] [facility] [place] [address] PCP - General 10/17/19 documented as of this encounter
--- OUTSIDE RECORDS SUMMARY | 2024-09-07 19:14 | XMS_ITS | Encounter Summary ---
Author Organization [facility] Healthcare Address [address] [place] [address] Care Team Providers Care Pillowcase Sewer Name Role Phone Aditya Castro MD Primary Care Provider [phone] Alondra Lambert RN Unavailable [phone] Reason for Referral * Transplant (Routine) - Authorized Specialty Diagnoses / Procedures Referred By Contac t Referred To Contact Transplant Diagnoses ESRD (end stage renal disease) ([facility]) (HCC) Elizabeth Cardoso MD [address] [place] [address] Phone: tel: fax: [facility] Transplant Kidney [address] [facility] [address] [phone] [place] [address] Phone: tel: fax: Referral ID Status Reason Start Date Expiration Date Visits Requested Visits Authorized [id number] Authorized Specialty Services Required 03/06/2024 03/06/2034 1 1 Question Answer Organ Kidney [[id number]] Please select the performing region: [facility] [[id number]] Please select the performing department: [facility] KIDNEY TRANSPLANT [[id number]] Reason for Visit * Reason Onset Date Comments Referral - Kidney Txp 03/06/2024 Encounter Details Date Type Department Care Team (Late st Contact Info) Description 03/06/2024 Telephone [facility] Transplant Kidney [address] [facility] [address] Mailstop [phone] [place] [address] Tisha Riley Referral - Kidney Txp Social [...] materials from doctor or pharmacy Never 12/01/2023 [facility] Utilities Answer Date Recorded In the past 12 months has [employer], gas, oil, or water [employer] threatened to shut off services in your [...] How often do you attend chur or adventist services? 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 Complete [place] and [place] with [place] * Telephone Encounter - Chris Richard - 05/02/2024 10:53 AM CDT Patient faxed his [facility] Medicare Advantage insurance card, saved in Media. Please verify insurance. Thank you! * Telephone Encounter - Chris Richard - 04/01/2024 1:08 PM CDT Outreached to patient at [phone], per patient, he is pending an answer from [facility] on whether they would cover his INR machine. Follow up in a month. * Telephone Encounter - Chris Richard - 03/25/2024 1:46 PM CDT Outreached to patient at [phone], left detailed voicemail requesting patient to fax his [facility] insurance card to Finance. Provided Finance's fax number. Invited patient to call should his insurancesituation is otherwise. * Telephone Encounter - Chris Richard - 03/06/2024 1:46 PM CDT Patient called back inquiring if [facility] Trans[facility] accepts [facility] Complete Care PPO. Informed patient that [facility] works with [facility] Transplant. Suggested patient to check with his existing provider and the insurance plan to ensure seamless transition to the [facility] plan, and it is his responsibility to ensure thisis the case. Patient expressed understanding. Patient mentioned the [facility] plan will be effective 024 if he signs up for [facility]. Informed patient that Financ will call him on 03/25/2024 to obtain insurance ID number and insurance card. Patient understood. * Telephone Encounter - Chris Richard - 03/06/2024 11:49 AM CDT Outreached to patient at [phone], informed patient that [facility] does not include [facility] as a in-network provider. Offered the option to have patient contact [facility] for possible transplant network, or to work on switching insurance in his own will to a carrier that works with [facility]. Patient opted for changing his insurance. Suggested patient to consult his universal worker assisted living and or insurance plan specialist. Patient preliminary opting for [facility]. Informed patient that [facility] works with [facility] for transplant. Patient requested call back in [...] currently on dialysis Recipient questionnaire, ROXANA, and dispatcher radioactive waste disposal assessment saved to chart documented in this encounter Plan of Treatment Scheduled Referrals Name Type Priority Associated Diagnoses Order Schedule Transplant Referral for Financial Clearance Outpatient Referral Routine ESRD (end stage renal disease) (CMS/HCC) ([facility]) Ordered: 03/06/2024 documented as of this encounter Visit Diagnoses Diagnosis ESRD (end stage renal disease) (CMS/HCC) (HCC)- Primary End stage renal disease documented in this encounter Care Teams Pillowcase Sewer Relationship Specialty Start Date End Date Aditya Castro MD [address] [facility] [place] [address] PCP - General 10/17/19 Alondra Lambert, RN [address] [address] Elevator Attendant 03/06/24 documented as of this encounter
--- OUTSIDE RECORDS SUMMARY | 2024-09-07 19:14 | XMS_ITS | Encounter Summary ---
Author Organization [facility] Healthcare Address [address] [place] [address] Care Team Providers Care Regulatory Affairs Analyst Name Role Phone Aditya Castro MD Primary Care Provider [phone] Reason for Visit * Auth/Cert (Routine) Specialty Diagnoses / Procedures Referred By Aguilar t Referred To Contact Referral ID Status Reason Start Date Expiration Date Visits Re quested Visits Authorized [id number] 1 1 Encounter Details Date Type Department Care Team (Late st Contact Info) Description 11/09/2023 12:00 PM CDT Home Care Visit [address] [place] [address] Miriam Syed RN SN HOME VISIT Social [...] materials from doctor or pharmacy Never 11/05/2023 [facility] Utilities Answer Date Recorded In the past 12 months has th e [employer], gas, oil, or water company threatened to [...] on file 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 Gender Identity Not on file [...] Details Visit Type -SN Home Visit Discipline -Care Home Problems Problem Description Start Date Status Goals Interve ntions Homebound Status Disciplines: Skilled Disciplines Patient's homebound status 11/05/2023 Active 1 goal linked to scheduled/documen marcelo intervention 1 goal intervention scheduled/documen marcelo in this visit Medications Disciplines: Care Home Management of home medications 11/05/2023 Active 1 goal linked to scheduled/documen marcelo intervention 2 goal interventions scheduled/documen marcelo in this visit Monitor patient's vital signs every home health visit Disciplines: SN, PT, OT, TRANSPORTER DRIVER, JOCKEY'S AGENT, Skilled Disciplines Monitor patient's vital signs every home health visit. 11/05/2023 Active 1 goal linked to scheduled/documen marcelo intervention 1 goal intervention scheduled/documen marcelo in this visit Labs Disciplines: Care Home Management of specimen samples, including lab draws, [...] visit during episode of care Description: Home cigarette carton sealer to measure vital signs during every home [...] Scheduled documented in this encounter Care Teams Regulatory Affairs Analyst Relationship Specialty Start Date End Date Aditya Castro MD [address] [facility] [place] [address] PCP - General 10/17/19 documented as of this encounter
--- OUTSIDE RECORDS SUMMARY | 2024-09-07 19:14 | XMS_ITS | Encounter Summary ---
Author Organization [facility] Healthcare Address [address] [place] [address] Care Team Providers Care Creative Services Intern Name Role Phone Aditya Castro MD Primary Care Provider [phone] Reason for Visit * Reason Onset Date Comments Anticoagulation 11/16/2023 Encounter Details Date Type Department Care Team (Late st Contact Info) Description 11/16/2023 Telephone Cardiovascular and Thoracic Surgery [address] [facility] [address] [place] [address] Margoth Grewal RN [address] [facility] [address], [place] [address] Anticoagulation Social History Tobacco Use [...] pharmacy Never 11/05/2023 [facility] Utilities Answer Date Recorded In the past 12 months has e [employer], [employer], or [employer] threatened to shut off services in your [...] often do you attend chur ch or yazdanism services? 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
--- OUTSIDE RECORDS SUMMARY | 2024-09-07 19:14 | XMS_ITS | Encounter Summary ---
Author Organization [facility] Healthcare Address [address] [place] [address] Care Team Providers Care Senior Gamemaster Name Role Phone Aditya Castro MD Primary Care Provider [phone] Reason for Visit * Auth/Cert (Routine) Specialty Diagnoses / Procedures Referred By Aguilar t Referred To Contact Referral ID Status Reason Start Date Expiration Date Visits Re quested Visits Authorized [id number] 1 1 Encounter Details Date Type Department Care Team (Late st Contact Info) Description 11/20/2023 12:00 PM CDT Home Care Visit [address] [place] [address] Miriam Syed RN SN HOME VISIT Social [...] materials from doctor or pharmacy Never 11/05/2023 [facility] Utilities Answer Date Recorded In the past 12 months has th e [employer], gas, oil, or water company threatened to [...] on file 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 Gender Identity Not on file Sexual [...] Details Visit Type -SN Home Visit Discipline -Longterm Problems Problem Description Start Date Status Goals Interve ntions Homebound Status Disciplines: Skilled Disciplines Patient's homebound status 11/05/2023 Active 1 goal linked to scheduled/documen marcelo intervention 1 goal intervention scheduled/documen marcelo in this visit Medications Disciplines: Longterm Management of home medications 11/05/2023 Active 1 goal linked to scheduled/documen marcelo intervention 2 goal interventions scheduled/documen marcelo in this visit Monitor patient's vital signs every home health visit Disciplines: SN, PT, OT, SOLAR SYSTEMS DESIGNER, LEATHER BELT LOOP CUTTER, Skilled Disciplines Monitor patient's vital signs every home health visit. 11/05/2023 Active 1 goal linked to scheduled/documen marcelo intervention 1 goal intervention scheduled/documen marcelo in this visit Labs Disciplines: Longterm Management of specimen samples, including lab draws, [...] visit during episode of care Description: Home route delivery clerk to measure vital signs during every home [...] Scheduled documented in this encounter Care Teams Senior Gamemaster Relationship Specialty Start Date End Date Aditya Castro MD [address] [facility] [place] [address] PCP - General 10/17/19 documented as of this encounter
--- OUTSIDE RECORDS SUMMARY | 2024-09-07 19:14 | XMS_ITS | Encounter Summary ---
Author Organization [facility] Healthcare Address [address] [place] [address] Care Team Providers Care Chamber Walker Name Role Phone Aditya Castro MD Primary Care Provider [phone] Encounter Details Date Type Department Care Team (Late st Contact Info) Description 11/16/2023 Telephone [facility] Case Management [address] [place] [address] Jose Manuel Moore BS Social [...] from doctor or pharmacy Never 12/01/2023 [facility] Utilities Answer Date Recorded In the [...] any clubs o r organizations such as evangelical groups, unions, fraternal or athletic groups, or [...] on file 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 Patient denies any questions regarding medications at this time. Cardiac Rehab Facility: Was contacted by [place] Senior Data Warehouse Architect Follow-up Appointment: Patient had a follow up [...] medications. Cardiac Rehab Facility: Asked patient if [facility] cardiac rehab has contacted them yet. Patient states that they have contacted him and plan to schedule him in a few weeks. Senior Data Warehouse Architect Follow-up Appointment: Patient reports they see Dr. Mcnulty on 11/22/23 Readmission: Patient reports they have not been readmitted to a hospital since being discharged from [facility]. Will plan to make 30-60-day f/u [...] on filedocumented in this encounter Care Teams Chamber Walker Relationship Specialty Start Date End Date Aditya Castro MD [address] [facility] [place] [address] PCP - General 10/17/19 documented as of this encounter
--- OUTSIDE RECORDS SUMMARY | 2024-09-07 19:14 | XMS_ITS | Encounter Summary ---
Author Organization [facility] Healthcare Address [address] [place] [address] Care Team Providers Care After School Counselor Name Role Phone Aditya Castro MD Primary Care Provider [phone] Encounter Details Date Type Department Care Team (Late st Contact Info) Description 11/05/2023 Plan of Care Documentation [facility] [address] [address] [address] [place] [id number] Social History Tobacco Use Types Packs/Day Years [...] materials from doctor or pharmacy Never 11/05/2023 [facility] Utilities Answer Date Recorded In the past 12 months has e [employer], gas, oil, or water company threatened to [...] file 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 The patient is under my care, and I have authorized serviceson this plan of care and will periodically review the plan. The patient had a [id number] encounter with Lorne Mcnulty MD on 10/20/2023 and the encounter was related to the primary reason for home health care. documented in this encounter Plan of Treatment Not on file documented as of this encounter Visit Diagnoses Not on filedocumented in this encounter Care Teams After School Counselor Relationship Specialty Start Date End Date Aditya Castro MD [address] [facility] DEPT [place] [address] PCP - General 10/17/19 documented as of this encounter
--- OUTSIDE RECORDS SUMMARY | 2024-09-07 19:14 | XMS_ITS | Encounter Summary ---
Author Organization [facility] Healthcare Address [address] [place] [address] Care Team Providers Care Manager Rfid Name Role Phone Aditya Castro MD Primary Care Provider [phone] Reason for Visit * Auth/Cert (Routine) Specialty Diagnoses / Procedures Referred By Aguilar t Referred To Contact Referral ID Status Reason Start Date Expiration Date Visits Re quested Visits Authorized [id number] 1 1 Encounter Details Date Type Department Care Team (Latest Contact Info) Description 11/05/2023 9:00 AM CDT Home Care Visit [address] [place] [address] Miriam Syed RN SN OASIS START OF [...] from doctor or pharmacy Never 11/05/2023 [facility] Utilities Answer Date Recorded In the [...] on file 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 Gender Identity Not on file Sexual [...] Body Mass Index 38.31 10/17/2023 12:52 PM LUNCHEONETTE MANAGER documented in this encounter Miscellaneous Notes * [...] at time of Medication reconciliation, weekly medication environmental emergencies planner filled by SN at visit with patient Re-hospitalization risk: high Barriers to care/social determinants: None RECOMMENDATIONS POC confirmed with Dr.: Lorne Mcnulty MD Plan for my discipline: SN for CAD post-op follow, wound care, disease process management & education, medication management Other disciplines ordered/recommended: Residential and Physical Therapy Supply/HME/equipment needs or issues: [...] patient does not have cognitive impairments, then E1929k would not apply. M1800 - Grooming 1- [...] guidance, if patient requires standby assistance (a ??collar stitcher??) to dress safely or requires verbal cueing/reminders due to physical/cognitive/environmental barriers to complete task safely, then Code 2. M1820 - Dress Lower Body 1- some help 2- needs assist Changed from 1 to 2. SN OASIS - noted needs minimum assist to dress lower body. According to OASIS guidance, if patient requires standby assistance (a ??collar stitcher??) to dress safely or requires verbal cueing/reminders [...] -SN OASIS Start o f Care Discipline -Residential Problems Problem Description Start Date Status Goals Interve ntions Homebound Status Disciplines: Skilled Disciplines Patient's homebound status 11/05/2023 Active 1 goal linked to scheduled/documen marcelo intervention 1 goal intervention scheduled/documen marcelo in this visit Medications Disciplines: Residential Management of home medications 11/05/2023 Active 1 goal linked to scheduled/documen marcelo intervention 2 goal interventions scheduled/documen marcelo in this visit Monitor patient's vital signs every home health visit Disciplines: SN, PT, OT, PERSONAL SECURITY SPECIALIST, BRASSIERE CUP MOLD CUTTER, Skilled Disciplines Monitor patient's vital signs every home health visit. 11/05/2023 Active 1 goal linked to scheduled/documen marcelo intervention 1 goal intervention scheduled/documen marcelo in this visit Labs Disciplines: Residential Management of specimen samples, including lab draws, [...] visit during episode of care Description: Home director of restaurant to measure vital signs during every home [...] Scheduled documented in this encounter Care Teams Manager Rfid Relationship Specialty Start Date End Date Aditya Castro MD [address] [facility] [place] [address] PCP - General 10/17/19 documented as of this encounter
--- OUTSIDE RECORDS SUMMARY | 2024-09-07 19:14 | XMS_ITS | Encounter Summary ---
Author Organization [facility] Healthcare Address [address] [place] [address] Care Team Providers Care Web Production Designer Name Role Phone Aditya Castro MD Primary Care Provider [phone] Reason for Visit * Auth/Cert (Routine) Specialty Diagnoses / Procedures Referred By Aguilar t Referred To Contact Referral ID Status Reason Start Date Expiration Date Visits Re quested Visits Authorized [id number] 1 1 Encounter Details Date Type Department Care Team (Late st Contact Info) Description 11/13/2023 12:45 PM CDT Home Care Visit [address] [address] [address] [place] [address] Miriam Syed RN SN HOME VISIT Social [...] materials from doctor or pharmacy Never 11/05/2023 [facility] Utilities Answer Date Recorded In the past 12 months has th e Infect[employer], gas, oil, or water company threatened to [...] often do you attend chur ch or rastafari services? 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 Gender Identity Not on file Sexual [...] Details Visit Type -SN Home Visit Discipline -Half-Way Problems Problem Description Start Date Status Goals Interve ntions Homebound Status Disciplines: Skilled Disciplines Patient's homebound status 11/05/2023 Active 1 goal linked to scheduled/documen marcelo intervention 1 goal intervention scheduled/documen marcelo in this visit Medications Disciplines: Half-Way Management of home medications 11/05/2023 Active 1 goal linked to scheduled/documen marcelo intervention 2 goal interventions scheduled/documen marcelo in this visit Monitor patient's vital signs every home health visit Disciplines: SN, PT, OT, COLLEGE OR UNIVERSITY BUSINESS MANAGER, CUSTOMER SALES SPECIALIST, Skilled Disciplines Monitor patient's vital signs every home health visit. 11/05/2023 Active 1 goal linked to scheduled/documen marcelo intervention 1 goal intervention scheduled/documen marcelo in this visit Labs Disciplines: Half-Way Management of specimen samples, including lab draws, [...] visit during episode of care Description: Home drafter marine to measure vital signs during every home [...] Scheduled documented in this encounter Care Teams Web Production Designer Relationship Specialty Start Date End Date Aditya Castro MD [address] [facility] [place] [address] PCP - General 10/17/19 documented as of this encounter
--- OUTSIDE RECORDS SUMMARY | 2024-09-07 19:14 | XMS_ITS | Encounter Summary ---
Author Organization [facility] Healthcare Address [address] [place] [address] Care Team Providers Care Waxer Operator Name Role Phone Aditya Castro MD Primary Care Provider [phone] Reason for Visit * Reason Onset Date Comments Anticoagulation 11/20/2023 Encounter Details Date Type Department Care Team (Late st Contact Info) Description 11/20/2023 Telephone Cardiovascular and Thoracic Surgery [address] [facility] [address] [place] [address] Margoth Grewal RN [address] [facility] [address], [place] [address] Anticoagulation Social History Tobacco Use [...] doctor or pharmacy Never 11/05/2023 [facility] Utilities Answer Date Recorded In the past 12 months has e [employer], [employer], or [employer] threatened to shut off services in your [...] on file 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
--- OUTSIDE RECORDS SUMMARY | 2024-09-07 19:14 | XMS_ITS | Encounter Summary ---
Author Organization [facility] Healthcare Address [address] [place] [address] Care Team Providers Care Supervisor Power Reactor Name Role Phone Aditya Castro MD Primary Care Provider [phone] Reason for Visit * Reason Onset Date Comments Anticoagulation 12/01/2023 Encounter Details Date Type Department Care Team (Late st Contact Info) Description 12/01/2023 Telephone Cardiovascular and Thoracic Surgery [address] [facility] [address] [place] [address] Licha Jenkins NP [address] [facility] [address] [place] [address] Anticoagulation Social History Tobacco Use [...] doctor or pharmacy Never 12/01/2023 [facility] Utilities Answer Date Recorded In the past 12 months has th e [employer], [employer], or [employer] threatened to shut off services in [...] on file 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 INR today is 1.5. Pt has an On-x mechanical valve. Current warfarin dose is 4 mg on MWF and 3 mg the rest. He will take 6 mg today and then 4 mg daily. He sees his analytical data scientist on Monday and they will take over his anticoagulation management. He is discharged from home health after today. documented in this encounter Plan of Treatment Not on file documented as of this encounter Visit Diagnoses Not on filedocumented in this encounter Care Teams Supervisor Power Reactor Relationship Specialty Start Date End Date Aditya Castro MD [address] [facility] [place] [address] PCP - General 10/17/19 documented as of this encounter
--- OUTSIDE RECORDS SUMMARY | 2024-09-07 19:16 | XMS_ITS | Encounter Summary ---
Author Organization [facility] Healthcare Address [address] [place] [address] Care Team Providers Care Grades 1 Thru 5 Teacher Name Role Phone Aditya Castro MD Primary Care Provider [phone] Encounter Details Date Type Department Care Team (Late st Contact Info) Description 10/17/2023 Orders Only [facility] Cardiology [address] [place] [address] Mesha Castro MD [address] [place] [id number] Social History Tobacco Use Types Packs/Day Years Used Date Smoking Tobacco: Never Smokeless Tobacco: Former Alcohol Use Standard Drinks/Week Comments No 0 (1 standard drink = 0.6 oz pur e alcohol) [facility] Utilities Answer Date Recorded In the past 12 months has [employer], gas, oil, or water [employer] threatened to shut off services in your [...] week 10/16/2023 How often do you attend [facility] or restorationism services? 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 Gender Identity Not on file Sexual Orientation Not on file documented as of this encounter Plan of Treatment Not on file documented as of this encounter Procedures Procedure Name Priority Date/Time Associated Diagnosis Comments CARDIOLOGY DOCUMENT SCAN Routine 10/13/2023 2:17 PM UNIFORM ATTENDANT CARDIOLOGY DOCUMENT SCAN Routine 10/12/2023 2:15 PM UNIFORM ATTENDANT CARDIOLOGY DOCUMENT SCAN Routine 10/11/2023 2:09 PM UNIFORM ATTENDANT documented in this encounter Results * Cardiology Document Scan (10/13/2023 2:17 PM UNIFORM ATTENDANT) Anatomical Region Laterality Modality Other us Abelardo Petit MD CV CARDIAC SERVICES PROC EDURES Final Result * Cardiology Document Scan (10/12/2023 2:15 PM UNIFORM ATTENDANT) Anatomical Region Laterality Modality Other us Ripa Lianne Castro MD CV CARDIAC SERVICES PRO CEDURES Final Result * Cardiology Document Scan (10/11/2023 2:09 PM UNIFORM ATTENDANT) Anatomical Region Laterality Modality Other us Ripa Lianne Castro MD CV CARDIAC SERVICES PRO CEDURES Final Result documented in this encounter Visit Diagnoses Not on filedocumented in this encounter Care Teams Grades 1 Thru 5 Teacher Relationship Specialty Start Date End Date Aditya Castro MD [address] [facility] [place] [address] PCP - General 10/17/19 documented as of this encounter
--- OUTSIDE RECORDS SUMMARY | 2024-09-07 19:16 | XMS_ITS | Encounter Summary ---
Author Organization [facility] Healthcare Address [address] [place] [address] Care Team Providers Care Assembler Molded Frames Name Role Phone Aditya Correa MD Primary Care Provider [phone] Reason for Referral * Consultation (Routine) - Pending Review Specialty Diagnoses / Procedures Referred By Aguilar t Referred To Contact Cardiac Rehabilitation Diagnoses S/P CABG x 3 NSTEMI (non-ST elevated myocardial infarction) (CMS/HCC) (HCC) S/P AVR Jaqueline Valero MD Phone: tel: fax: [place] [address] [place] [id number] Phone: tel: Referral ID Status Reason Start Date Expiration Date Visits Requested Visits Authorized [id number] Pending Review Specialty Services Required 10/24/2023 11/22/2024 1 1 Question Answer Please select the performing region: External Order [171] To loc/pos [facility] Inpatient POS [[id number]] Select a phase: Phase 2 # of visits: [address] Valero is patient's Cardiothoracic Surgeon and will not be managing patient during Cardiac Rehab. Please contact patient's established Singing Telegram Performer, Dr. Hamlet Ortega, for additional information. UNTING METHODS ANALYST * Home Health (Routine) - Pending Review Specialty Diagnoses / Procedures Referred By Aguilar t Referred To Contact Home Health Services / Home Health and Hospice Diagnoses CAD in chippe[place]cree artery 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[place] artery of [place] heart with stable angina pectoris (HCC) Aortic stenosis, severe Jaqueline Valero MD Phone: tel: fax: [facility] [address] [address] Referral ID Status Reason Start Date Expiration Date Visits Requested Visits Authorized [id number] Pending Review Specialty Services Required 10/20/2023 11/18/2024 1 1 Question Answer [facility] Primary disciplines requested: Long Term Home Health Services Disease and Medication Management, [...] and safety, Pain and impaired mobility post-op UNTING METHODS ANALYST Reason for Visit * Auth/Cert Specialty Diagnoses / Procedures Referred By Contac t Referred To Contact Diagnoses CAD in chip[place]cree artery Needs CABG (12 or 1300) Procedures N Referral ID Status Reason Start Date Expiration Date Visits Re quested Visits Authorized [id number] 1 1 Encounter Details Date Type Department Care Team (Latest Contact Info) Description 10/13/2023 11:18 PM ACCOUNTING METHODS ANALYST - 11/03/2023 7:30 PM CDT Hospital Encounter [facility] [address] [place] [address] Julio Lopez [address] [facility] [place] [address] Frank Cody MD [address] [facility] [place] [address] Jovani Kat DO [address] [place] [address] Jaqueline Valero MD [address] [facility] [address] [place], [place] [id number] 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[place] artery of [place] heart with stable angina pectoris ([facility]/HCC) ([facility]) (Primary Dx); CAD in chip[place]cree artery; Aortic stenosis, severe; S/P CABG x 3; NSTEMI (non-ST elevated myocardial infarction) (CMS/[facility]) ([facility]); S/P AVR Discharge Disposition: Discharge to home, home health skilled care Social History Tobacco Use Types Packs/Day Years Used Date Smoking Tobacco: Never Smokeless Tobacco: Former Alcohol Use Standard Drinks/Week Comments No 0 (1 standard drink = 0.6 oz pur e alcohol) [facility] Utilities Answer Date Recorded In [...] on file Legal Sex Male 3:42 AM ACCOUNTING METHODS ANALYST Gender Identity Not on file Sexual [...] (5' 10 ) 10/17/2023 12: 52 PM ACCOUNTING METHODS ANALYST Body Mass Index 39.48 10/17/2023 12:52 PM ACCOUNTING METHODS ANALYST documented in this encounter Discharge Summaries * [...] 53-year-old male who has been transferred to [facility] for consideration of coronary artery bypass grafting and aortic valve replacement. His past medical history includes severe CAD with previous PCI, paroxysmal atrial fibrillation, type 1 diabetes mellitus, ESRD on peritoneal dialysis, hypertension, hyperlipidemia, and sleep apnea. He presented to [facility] in [place], [place] on 10/09/23 complaining of fatigue, malaise, [...] He has been transferred to [facility] for consideration of coronary artery bypass and [...] THIS IS FOR THE INSULIN PUMP: Continue OmnipCuciniale 5 insulin pump with ELERTS G6 CGM at home settings: TIME BASAL RATE TOTAL BASAL DAILY DOSE: 65.85 0330 1.7 units/hour 0800 0.8 units/hour 2000 5.8 units/hour Commonly known as: HumaLOG, ADMELOG levothyroxine 25 mcg tablet Take 1 tablet (25 mcg total) by mouth stockroom inventory clerk before breakfast Commonly known as: SYNTHROID Start [...] REDNESS OR DRAINAGE OF INCISIONS OR FEVERS [phone] Diet Instructions Adult Discharge Diet Diet Type: Restrict salt intake to less than 4000 mg per day Low fat intake Diabetic renal diet. Heart healthy diet. Limit foods high in Vitamin K while taking Coumadin. High protein intake. Other Instructions Ambulatory referral to Home Health Service Line: Home Health Primary disciplines requested: Long Term Home Health Services: Disease and Medication Management [...] 9:30 AM Jaqueline Valero MD [facility] [id number] PSA Contact Information for Follow-ups [facility] Specialty: Home Health and Hospice [address] [facility] [address] Next Steps: Follow up Questions: Service Line: Home Health Primary disciplines requested: Long Term Home Health Services: Disease and Medication Management [...] Family Medicine Relationship: PCP - General [address] [facility] [address] Next Steps: Follow up Comments: Follow up with established provider: 4 weeks Questions: To provider: ADITYA CORREA [facility] [address] [place] [phone] Next Steps: Follow up Comments: Dr. Valero is patient's Cardiothoracic Surgeon and will not be managing patient during Cardiac Rehab. Please contact patient's established Singing Telegram Performer, Dr. Hamlet Ortega, for additional information. Questions: Please select the performing region: External Order To loc/pos: [facility] Inpatient POS Select a phase: Phase 2 # of visits: 1 Referral Status: External - Ready to Schedule Cosigned by Jaqueline Valero MD at 11/04/2023 2:05 PM CDT documented in this encounter Discharge Instructions * Discharge Instr - Diet* Carly Spencer RD - 10/20/2023 3:29 PM ACCOUNTING METHODS ANALYST Diabetic renal diet. Heart healthy diet. Limit foods high in Vitamin K while taking Coumadin. High protein intake. UNTING METHODS ANALYST UNTING METHODS ANALYST * Attachments The following attachments cannot be sent through Care Everywhere. * CABG (Coronary Artery Bypass Graft) (Discharge Care) (Faroese) * Transcatheter Aortic Valve Replacement (Discharge Care) (Faroese) * Sternal Precautions (Gymnasium Teacher) (Faroese) * Warfarin (By mouth) (Faroese) documented in this encounter Medications at Time [...] PUMP: Continue Omnipod 5 insulin pump with Netevencom G6 CGM at home settings: TIME BASAL RATE TOTAL BASAL DAILY DOSE: 65.85 0330 1.7 units/hour 0800 0.8 units/hour 2000 5.8 units/hour 06/29/2022 ketoconazole (NIZORAL) 2 % shampoo APPLY EXTERNALLY 2 TO 3 TIMES EVERY WEEK NEEDED 04/23/2019 levothyroxine (SYNTHROID) 25 mcg tabletIndications:hy pothyroidism Take 1 tablet (25 mcg total) by mouth stockroom inventory clerk before breakfast 30 tablet 1 11/04/2023 Linzess [...] (20 mg total) by mouth daily peg 520-omvfpytolzfr-sbc cerin (ARTIFICAL TEARS) 1-0.2-0.2 % ophthalmic solution [...] 1 tablet (25 mcg total) by mouth stockroom inventory clerk before breakfast 30 tablet 1 11/04/2023 HYDROcodone-acetamin [...] 53 y.o. male. Admit Dx: CAD in chippewa[place]cree artery [I25.10]. Admitted on 10/13/2023. Patient's intake is adequate. Objective Dietary Orders (From admission, onward) Start Ordered 10/26/23 1235 Adult Diet Restricted; Consistent Carbohydrate; Renal; 1000mL = Diet 700/Nursing 300 Diet effective now Question Answer Comment ([facility]) Diet type Restricted Diabetic: Consistent Carbohydrate Renal: [...] Review: Scheduled Meds: al & mag hydroxide iqqkqiwjxwh-djvukepbxbqoijt-ezntwkgvi-nystatin, 20 mL, swish & swallow, Q6H amiodarone, [...] heparin, 0-33 Units/kg/hr, Last Rate: Stopped (11/03/23 7283) INSULIN SUBCUTANEOUS PUMP insulin lispro, 0-25 Units [...] of Weight Used for Estimated Protein : [place] Protein Needs Based on g/k.4 Total Protein Estimated Needs (gm): 105.42 Kcal/kg Type of Weight Used for Estimated Kcals: [place] Kcal/k Total Kcal/kg Estimated Needs : 2259 [...] consistent carbohydrate and renal diet. Plan: Added horticulture supervisor check to pt's diet to help [...] ESRD on peritoneal dialysis initially presented to [facility] in [facility] on October 09 for symptoms of [...] a cardiology consultation which lead to a [facility]. Results were notable for severe CAD [...] regimen of PD Follow-up with his primary legal assistant Fernandez Carranza MD [facility]: MD Chula Domínguez PA Graeme Mindel, MD Justin Krafft, PA Derek Larson, MD FASN Rose Mattli, NP Rohan Devanpalli, MD Candace Shirley, NP [address] [place], [place] [id number] [phone] - Office [phone] - Fax * Nusrat Us [facility] - 11/03/2023 11:05 AM CDT [...] 7.6 monitor for now Joselin Strickland MD [facility] SUBJECTIVE: Mr. Garvin is doing well [...] Dose Route Frequency al & mag hydroxide gztgozyqqrp-bodpagzpbozblem-bzqlrpkeu-nystatin (MAGIC MOUTHWASH) oral suspension 1-1-1-1 20 mL [...] sternotomy healing well ASSESSMENT/PLAN: CAD - prior VA with multiple PCI - C showed multivessel [...] -venous doppler shows no DVT SHAMIKA Donald [facility] 11/03/2023 10:59 AM * [...] yesterday Levothyroxine 25 mcg started per [employer] prn for pain control CPAP nightly Stress ulcer prophylaxis: Protonix DVT prophylaxis: coumadin dosing PT/OT Plan reviewed with LESLY Vallecillo 11/02/2023 * Nida Starr, CDL A DRIVER - 11/02/2023 2:54 PM CDT Physical Therapy [...] Comments Incentive spirometer x 10 reps fom [id number] Transfer 1 Transfer From 1 Sit;Chair with [...] End Date End Date PT LT - [facility] 1 10/21/23 11/04/23 -- Goal Details: Patient will perform supine<>sit Independent. Goal Start Date Expected End Date End Date PT [facility] - [facility] 2 10/21/23 11/04/23 -- Goal Details: Patient will perform bed<>chair transfer Modified Independent with ww. Goal Start Date Expected End Date End Date PT LT - [facility] 3 10/21/23 11/04/23 -- Goal Details: Patient will ambulate 350 feet Modified Independent with wheeled walker. Goal Start Date Expected End Date End Date PT [facility] - [facility] 4 10/21/23 11/04/23 -- Goal Details: Patient [...] ESRD on peritoneal dialysis initially presented to [facility] in [facility] on October 09 for symptoms of [...] free T4, synthroid started Fernandez Carranza MD [facility]: MD Chula Domínguez, MD Renny Flood, MD STANISLAV Camacho, MD Shanda Pederson, ROBERTO [address] [place], [place] [address] [phone] - Office [phone] - Fax * Pradeep Reeves NP - [...] Dose Route Frequency al & mag hydroxide yvlbhvhqjir-ndvewnvgslhcmlc-ueizrosxh-nystatin (MAGIC MOUTHWASH) oral suspension 1-1-1-1 20 mL [...] flush 0.5-20 mL 0.5-20 mL intra-catheter Q8H [facility] sodium chloride tablet 1 g 1 g [...] sternotomy healing well ASSESSMENT/PLAN: CAD - prior VA with multiple PCI - [facility] showed multivessel disease - LVEF dropped [...] -venous doppler shows no DVT SHAMIKA Donald [facility] 11/02/2023 12:53 PM * [...] and Vancomycin for left lower extremity cellulitis [employer] prn for pain control CPAP nightly Stress [...] ESRD on peritoneal dialysis initially presented to [facility] in [facility] on October 09 for symptoms of [...] a cardiology consultation which lead to a [facility]. Results were notable for severe CAD [...] with low free T4, synthroid started Fernandez Carrnaza MD [facility]: MD Chula Domínguez, MD Renny Flood PA Derek Larson, MD FASN Rose Mattli, MD Shanda Pederson, ROBERTO [address] [place] [address] [phone] - Office [phone] - Fax * Sophia Peoples COTA - [...] permanent denture broke after biting into an amharic muffin. Incisional pain is well controlled. OBJECTIVE: [...] Dose Route Frequency al & mag hydroxide uodjmajsvxj-qzzxbgjiogrllne-fhhxwjktd-nystatin (MAGIC MOUTHWASH) oral suspension 1-1-1-1 20 mL [...] flush 0.5-20 mL 0.5-20 mL intra-catheter Q8H [facility] sodium chloride tablet 1 g 1 g [...] sternotomy healing well ASSESSMENT/PLAN: CAD - prior VA with multiple PCI - [facility] showed multivessel disease - LVEF dropped [...] -venous doppler shows no DVT SHAMIKA Donald [facility] 11/01/2023 10:22 AM Agree with above note Feels better No chest pain BP stable S/P CABG, AVR ONX Om heparin and warfarin In sinus rhythm On antibiotics for cellulitis Patrick Almonte MD, FACC * Nusrat Us, [facility] - 11/01/2023 9:40 AM CDT [...] add Vancomycin for left lower extremity cellulitis [employer] pr[employer] for pain control CPAP nightly Encouraged [...] ESRD on peritoneal dialysis initially presented to [facility] in [facility] on October 09 for symptoms of [...] free T4, synthroid started Fernandez Carranza MD [facility]: MD Chula Domínguez, MD Renny Folod PA Derek Larson, MD FASN Rose Mattli, MD Shanda Pederson, ROBERTO [address] [place], [place] [address] [phone] - Office [phone] - Fax * Nida Starr, CDL A DRIVER - 10/31/2023 10:20 AM CDT Physical Therapy [...] Date Expected End Date End Date PT [facility] 1 10/21/23 11/04/23 -- Goal Details: Patient will perform supine<>sit Independent. Goal Start Date Expected End Date End Date PT [facility] 2 10/21/23 11/04/23 -- Goal Details: Patient will perform bed<>chair transfer Modified Independent with ww. Goal Start Date Expected End Date End Date PT [facility] 3 10/21/23 11/04/23 -- Goal Details: Patient will ambulate 350 feet Modified Independent with wheeled walker. Goal Start Date Expected End Date End Date PT [facility] 4 10/21/23 11/04/23 -- Goal Details: Patient [...] mg. Continueto monitor INR. * Emiliana Dickson, ANIMAL HUSBANDRY TECHNICIAN - 10/31/2023 8:40 AM CDT Daily Progress [...] Dose Route Frequency al & mag hydroxide kycaxujbisj-csoopesurqfoslx-avbluzziw-nystatin (MAGIC MOUTHWASH) oral suspension 1-1-1-1 20 mL [...] sternotomy healing well ASSESSMENT/PLAN: CAD - prior VA with multiple PCI - [facility] showed multivessel disease - LVEF dropped [...] doppler shows no DVT Emiliana Dickson NP [facility] 10/31/2023 8:40 AM * [...] 1 View - Portable - in AM [[id number]] Collected: 10/26/23 0740 Order Status: Completed Updated: [...] Continue Ancef for left lower extremity cellulitis [employer] prn for pain control CPAP nightly Encouraged incentive spirometer use and increased activity Stress ulcer prophylaxis: Protonix DVT prophylaxis: INR therapeutic PT/OT: Inpatient rehab denied by insurance, will explore alternative options Plan reviewed with LESLY Larose 10/30/2023 * Nida Starr, CDL A DRIVER - 10/30/2023 11:37 AM CDT Physical Therapy [...] End Date End Date PT LTG - [facility] 1 10/21/23 11/04/23 -- Goal Details: Patient will perform supine<>sit Independent. Goal Start Date Expected End Date End Date PT [facility] 2 10/21/23 11/04/23 -- Goal Details: Patient will perform bed<>chair transfer Modified Independent with ww. Goal Start Date Expected End Date End Date PT [facility] 3 10/21/23 11/04/23 -- Goal Details: Patient will ambulate 350 feet Modified Independent with wheeled walker. Goal Start Date Expected End Date End Date PT [facility] 4 10/21/23 11/04/23 -- Goal Details: Patient [...] ESRD on peritoneal dialysis initially presented to [facility] in [facility] on October 09 for symptoms of [...] free T4, synthroid started Fernandez Carranza MD [facility]: MD Chula Domínguez PA Graeme Mindel, MD Justin Krafft, PA Derek Larson, MD FASN Rose Mattli, NP Rohan Devanpalli, MD Candace Shirley, NP [address] [place] [address] [phone] - Office [phone] - Fax * Joselin Strickland MD - [...] Dose Route Frequency al & mag hydroxide vzimpeguqwj-dpxmxcsmcrrcbad-ynmazcbbi-nystatin (MAGIC MOUTHWASH) oral suspension 1-1-1-1 20 mL [...] sternotomy healing well ASSESSMENT/PLAN: CAD - prior VA with multiple PCI - [facility] showed multivessel [...] cellulitis. -venous doppler pending Emiliana Dickson NP [facility] 10/30/2023 8:17 AM * Nida Starr, CDL A DRIVER - 10/30/2023 7:44 AM CDT Physical Therapy [...] ESRD on peritoneal dialysis initially presented to [facility] in [facility] on October 09 for symptoms of [...] a cardiology consultation which lead to a [facility]. Results were notable for severe CAD [...] D/W nursing and Dr. Thao Walker MD [facility]: MD Chula Domínguez PA Graeme Mindel, MD Justin Krafft, MD STANISLAV Camacho, MD Shanda Pederson, ANIMAL HUSBANDRY TECHNICIAN [address] [place], [place] [address] [phone] - Office [phone] - Fax * Manda Schaffer NP - [...] Dose Route Frequency al & mag hydroxide bzqffgqjxay-wharvunecetnwob-filxvgavn-nystatin (MAGIC MOUTHWASH) oral suspension 1-1-1-1 20 mL [...] sternotomy healing well ASSESSMENT/PLAN: CAD - prior VA with multiple PCI - [facility] showed multivessel disease - LVEF dropped [...] LLE -venous doppler pending Manda Schaffer NP [facility] 10/29/2023 9:35 AM Cosigned [...] discharge Plan reviewed with LESLY Mack 10/28/2023 UNTING METHODS ANALYST * Sophia Peoples COTA - 10/28/2023 2:17 [...] Hills OT at 10/30/2023 1:30 PM CDT UNTING METHODS ANALYST * Adam Walker MD - 10/28/2023 1:22 PM CST Images from the original note were not included. Nephrology Juvenal Garvin Jr. - 1970 Primary : Aditya Correa MD History and interval events: 53-year-old gentleman with history of type 1 diabetes mellitus on insulin pump, CHF, CAD, ESRD on peritoneal dialysis initially presented to [facility] in [facility] on October 09 for symptoms of [...] a cardiology consultation which lead to a [facility]. Results were notable for severe CAD [...] T4, consider thyroid supplementation? Adam Walker MD [facility]: MD Chula Domínguez, MD Renny Flood PA Derek Larson, MD FASN Rose Mattli, MD Shanda Pederson, ROBERTO [address] [place] [id number] [phone] - Office [phone] - Fax UNTING METHODS ANALYST * Manda Schaffer NP - 10/28/2023 8:01 [...] Dose Route Frequency al & mag hydroxide oqcnlgksoed-qjzfukkxeuesbij-hsgwyysfr-nystatin (MAGIC MOUTHWASH) oral suspension 1-1-1-1 20 mL [...] flush 0.5-20 mL 0.5-20 mL intra-catheter Q8H [facility] sodium chloride tablet 1 g 1 g [...] sternotomy healing well ASSESSMENT/PLAN: CAD - prior VA with multiple PCI - C showed multivessel [...] management per primary/nephrology team Manda Schaffer NP [facility] 10/28/2023 8:02 AM Cosigned by Ramirez Newberry MD at 10/28/2023 1:08 PM ACCOUNTING METHODS ANALYST UNTING METHODS ANALYST UNTING METHODS ANALYST * Yolanda Campos PA - 10/27/2023 6:58 [...] discharge Plan reviewed with LESLY Pantoja 10/27/2023 UNTING METHODS ANALYST * Taylor Jorge, RD - 10/27/2023 2:33 PM CST Nutrition Follow-up Progress Note Encounter Date: 10/27/23 2:33 PM Nutrition Progress Summary: Patient is a 53 y.o. male. Admit Dx: CAD in [place] artery [I25.10]. Admitted on 10/13/2023. Patient's intake is adequate. Objective Dietary Orders (From admission, onward) Start Ordered 10/26/23 1235 Adult Diet Restricted; Consistent Carbohydrate; Renal; 1000mL = Diet 700/Nursing 300 Diet effective now Question Answer Comment ([facility]) Diet type Restricted Diabetic: Consistent Carbohydrate Renal: [...] Review: Scheduled Meds: al & mag hydroxide yzgxflqunpr-zmcvunnzkktbrft-vgyfzaozl-nystatin, 20 mL, swish & swallow, Q6H amiodarone, [...] of Weight Used for Estimated Protein : [place] Protein Needs Based on g/k.4 Total Protein Estimated Needs (gm): 105.42 Kcal/kg Type of Weight Used for Estimated Kcals: [place] Kcal/k Total Kcal/kg Estimated Needs : 2259 [...] High protein intake. Taylor Jorge RD, LD UNTING METHODS ANALYST * Sophia Peoples COTA - 10/27/2023 1:25 [...] Suzie Aiken OT at 10/27/2023 2:23 PM ACCOUNTING METHODS ANALYST UNTING METHODS ANALYST UNTING METHODS ANALYST * Joselin Strickland MD - 10/27/2023 12:02 [...] oral Q6H PRN al & mag hydroxide zjsewyjmevq-tlpuzbkagkmozpf-cyqzsqrkx-nystatin (MAGIC MOUTHWASH) oral suspension 1-1-1-1 20 mL [...] Rate: 100 bpm RR Interval: 599 msec VA Interval: 0 msec QRS Duration: 145 msec QT Interval: 394 msec QTC Interval: 451 msec P-R-T [place]: 0 - -9 - 132 degrees IMPRESSION: NORMAL SINUS RHYTHM [REASON: NORMAL P AXIS, VA, RATE \T\ RHYTHM] LEFT BUNDLE BRANCH BLOCK OCCASIONAL PVC Electronically Signed By: Jesus Huerta MD ASSESSMENT/PLAN: CAD - prior VA with multiple PCI - [facility] showed multivessel disease - LVEF dropped [...] management per primary/nephrology team Joselin Strickland MD, [facility] [phone] [facility] 10/27/2023 12:02 PM UNTING METHODS ANALYST * Fernandez Carranza MD - 10/27/2023 9:44 AM CST Images from the original note were not included. Nephrology Juvenal Garvin Jr. - 1970 Primary : Aditya Correa MD History and interval events: 53-year-old gentleman with history of type 1 diabetes mellitus on insulin pump, CHF, CAD, ESRD on peritoneal dialysis initially presented to [facility] in [facility] on October 09 for symptoms of [...] a cardiology consultation which lead to a [facility]. Results were notable for severe CAD [...] will see this weekend Fernandez Carranza MD [facility]: MD Chula Domínguez, MD Renny Flood PA Derek Larson, MD FASN Rose Mattli, NP Rohan Devanpalli, MD Candace Shirley, NP [address] [place], [place] [address] [phone] - Office [phone] - Fax UNTING METHODS ANALYST UNTING METHODS ANALYST * Guerline Rodriguez PA - 10/26/2023 4:12 [...] 1 View - Portable - in AM [[id number]] Collected: 10/26/2340 Order Status: Completed Updated: 10/26/23742 [...] discharge Plan reviewed with LESLY Larose 10/26/2023 UNTING METHODS ANALYST * Pradeep Reeves NP - 10/26/2023 2:16 [...] oral Q6H ASHLEY al & mag hydroxide hdycyqzckyy-zhktofnapsnsxlm-olkfuvqll-nystatin (MAGIC MOUTHWASH) oral suspension 1-1-1-1 20 mL [...] infusion (premix) 0-33 Units/kg/hr 12.7 Units/kg/hr (10/25/23 1722) INSULIN SUBCUTANEOUS PUMP insulin lispro (HumaLOG) 100 [...] No focal deficits ASSESSMENT/PLAN: CAD - prior VA with multiple PCI - LHC showed multivessel [...] - management per primary/nephrology team SHAMIKA Donald [facility] 10/26/2023 2:17 PM UNTING METHODS ANALYST * Fernandez Carranza MD - 10/26/2023 12:29 PM CST Images from the original note were not included. Nephrology Juvenal Garvin Jr. - 1970 Primary : Aditya Correa MD History and interval events: 53-year-old gentleman with history of type 1 diabetes mellitus on insulin pump, CHF, CAD, ESRD on peritoneal dialysis initially presented to [facility] in [facility] on October 09 for symptoms of [...] PO4 binder with meals Fernandez Carranza MD [facility]: MD Chula Domínguez PA Graeme Mindel, MD Justin Krafft, PA Derek Larson, MD FASN Rose Mattli, NP Rohan Devanpalli, MD Candace Shirley, NP [address] [facility] [address] [place], [place] [id number] [phone] - Office [phone] - Fax UNTING METHODS ANALYST * Nusrat Us [facility] - 10/26/2023 11:17 AM CST [...] previous supratherapeutic response to 3 mg doses. UNTING METHODS ANALYST * Gustavo Swan, PT - 10/26/2023 10:10 [...] of ESRD on PD, CAD s/p PCI, VA, and DVTon chronic anticoagulation, Type 1 DM, HTN who presented to [facility] initially on 10/09/23 with general malaise and found to be in DKA and admitted to ICU. During hospitalization found to have elevated Troponins prompted cardiology evaluation and C significant for multivessel CAD and subse quently also found aortic stenosis. Transferred to [facility] 10/14/23 for surgical evaluation. Patient isnow s/p [...] Mobility Status;Inaccessible home environment;Home environment challenged Modified Kerr Score 1 Plan Plan Continue with current [...] Date Expected End Date End Date PT [facility] - [facility] 1 10/21/23 11/04/23 -- Goal Details: Patient will perform supine<>sit Independent. Goal Start Date Expected End Date End Date PT [facility] - [facility] 2 10/21/23 11/04/23 -- Goal Details: Patient will perform bed<>chair transfer Modified Independent with ww. Goal Start Date Expected End Date End Date PT [facility] 3 10/21/23 11/04/23 -- Goal Details: Patient will ambulate 350 feet Modified Independent with wheeled walker. Goal Start Date Expected End Date End Date PT [facility] 4 10/21/23 11/04/23 -- Goal Details: Patient will ambulate up/down 1 step Modified Independent as needed to enter and exithome. Education: Patient has been educated on the role of PT, safety , precautions, mobility training, and home exercise program. Education completed via explanation, teach back, and demonstration. Patientverbalized understanding and demonstrated understanding UNTING METHODS ANALYST * Nida Starr, CDL A DRIVER - 10/25/2023 3:01 PM CST Physical Therapy 10/25/23 1501 PT Last Visit Session Type Treatment PT Received On 10/25/23 Safe Environment Arm band checked;Patient found in supine;Session completed bedside;Gait belt utilized for all out of bed mobility Subjective Agreeable to Therapy Additional Pertinent History per eval: 53 y/o M presents for surgical intervention on 10/14/23 from [facility]. Pt is s/p CABG x 3 (SVG-PDA, SVG-OM, BRIEC-LAD) and mechanical AVR on 10/[address] Valero. Pt has history of ESRD on PD, CAD s/p PCI, VA, and DVT on chronic anticoagulation, Type 1 [...] Date Expected End Date End Date PT [facility] - [facility] 1 10/21/23 11/04/23 -- Goal Details: Patient will perform supine<>sit Independent. Goal Start Date Expected End Date End Date PT [facility] - [facility] 2 10/21/23 11/04/23 -- Goal Details: Patient will perform bed<>chair transfer Modified Independent with ww. Goal Start Date Expected End Date End Date PT [facility] 3 10/21/23 11/04/23 -- Goal Details: Patient will ambulate 350 feet Modified Independent with wheeled walker. Goal Start Date Expected End Date End Date PT [facility] 4 10/21/23 11/04/23 -- Goal Details: Patient will ambulate up/down 1 step Modified Independent as needed to enter and exithome. Cosigned by Gustavo Swan, PT at 10/25/2023 4:45 PM ACCOUNTING METHODS ANALYST UNTING METHODS ANALYST UNTING METHODS ANALYST * Guerline Rodriguez PA - 10/25/2023 2:13 [...] 1 View - Portable - in AM [[id number]] Collected: 10/25/23 1143 Order Status: Completed Updated: [...] discharge Plan reviewed with LESLY Larose 10/25/2023 UNTING METHODS ANALYST * Nusrat Us RPh - 10/25/2023 10:39 [...] with another 1.5 mg dose and reassess. UNTING METHODS ANALYST * Sophia Peoples COTA - 10/25/2023 9:43 [...] Vitals post activity BP 129/70, HR 63, [id number] Safe Environment End of Therapy Session Safe [...] Suzie Aiken OT at 10/25/2023 11:49 AM ACCOUNTING METHODS ANALYST UNTING METHODS ANALYST UNTING METHODS ANALYST * Emiliana Dickson NP - 10/25/2023 9:27 [...] 100 mg 100 mg oral BID epoetin gneia-epbx (RETACRIT) (10,000 unit/mL) injection 10,000 Units 10,000 [...] No focal deficits ASSESSMENT/PLAN: CAD - prior VA with multiple PCI - LHC showed multivessel [...] management per primary/nephrology team Emiliana Dickson NP [facility] 10/25/2023 9:28 AM Cosigned by Dilip Cohen MD at 10/25/2023 9:55 AM ACCOUNTING METHODS ANALYST UNTING METHODS ANALYST UNTING METHODS ANALYST Associated attestation - Dilip Cohen MD - 10/25/2023 9:55 AM ACCOUNTING METHODS ANALYST Patient seen at the bedside Is continuing [...] presents for surgical intervention on 10/14/23 from [facility]. Pt is s/p CABG x 3 (SVG-PDA, SVG-OM, BRICE-LAD) and mechanical AVR on 10/[address] Valero. Pt has history of ESRD on PD, CAD s/p PCI, VA, and DVT on chronic anticoagulation, Type 1 [...] (from Physical Therapy) Active Problems Problem: PT [facility] Start Date: 10/21/23 Goal Start Date Expected End Date End Date PT [facility] - [facility] 1 10/21/23 11/04/23 -- Goal Details: Patient will perform supine<>sit Independent. Goal Start Date Expected End Date End Date PT [facility] - [facility] 2 10/21/23 11/04/23 -- Goal Details: Patient will perform bed<>chair transfer Modified Independent with ww. Goal Start Date Expected End Date End Date PT [facility] 3 10/21/23 11/04/23 -- Goal Details: Patient will ambulate 350 feet Modified Independent with wheeled walker. Goal Start Date Expected End Date End Date PT [facility] - [facility] 4 10/21/23 11/04/23 -- Goal Details: Patient will ambulate up/down 1 step Modified Independent as needed to enter and exithome. Cosigned by Gina Mason DPT at 10/24/2023 3:12 PM ACCOUNTING METHODS ANALYST UNTING METHODS ANALYST UNTING METHODS ANALYST * Fernandez Carranza MD - 10/24/2023 10:56 AM CST Images from the original note were not included. Nephrology Juvenal Garvin Jr. - 1970 Primary : Aditya Correa MD History and interval events: 53-year-old gentleman with history of type 1 diabetes mellitus on insulin pump, CHF, CAD, ESRD on peritoneal dialysis initially presented to [facility] in [facility] on October 09 for symptoms of [...] PO4 binder with meals Fernandez Carranza MD [facility]: Ron R. Mehama, MD Chula Heady, PA Fernandez MD Renny Carranza PA Derek Larson, MD FASN Rose Mattli, NP Rohan Devanpalli, MD Candace Shirley, ROBERTO [address] [place], [place] [address] [phone] - Office [phone] - Fax UNTING METHODS ANALYST * Nona Alcala PA - 10/24/2023 10:15 [...] discharge Patient discussed with LESLY Vallecillo 10/24/2023 UNTING METHODS ANALYST * Nusrat Us RPh - 10/24/2023 9:49 [...] setting (nutrition). Warfarin dose today: 1.5 mg UNTING METHODS ANALYST * Salena Rene NP - 10/24/2023 9:26 AM CST Cardiology Daily Progress - [facility] SUBJECTIVE: Mr. Garvin is resting in bed. [...] No focal deficits ASSESSMENT/PLAN: CAD - prior VA with multiple PCI - C showed multivessel [...] water restriction with hyponatremia Salena Rene NP [facility] 10/24/2023 9:26 AM UNTING METHODS ANALYST * Wyatt Rodriguez EP-C - 10/24/2023 8:08 AM CST Inpatient Cardiac Rehab Education Patient Information Patient Name: Juvenal Garvin Jr. : 1970 Room/Bed: [place] [address]/[address] Insurance: A[employer] + IDPA Progress Note Shell Molder: ROSA Silva Date: 10/24/2023 Referring Diagnosis for Cardiac Rehab - s/p CABG x 3, AVR Education Provided Explained my role as a Cardiac Rehab Navigator (CRN). Provided Cardiac Rehab education to patient. Family was (not) present. Patient was provided with Cardiac Rehab education folder as well as a [facility] Heart Education booklet. Risk Factors: HTN, [...] fats)and exercise. Advised patient to consult their concierge receptionist, nurse, and/or physician if they have any questions about their diet/nutrition. Cardiac Rehab: Gave patient options of facilities for Outpatient Cardiac Rehab (OCR) in their community. Explained OCR program. Patient expressed knowledge towards local OCR program - patient prefers [facility] I anticipate no barriers for patient to [...] working towards eventually trying to reach the [place] [employer] recommendations in regards to exercise: [...] when it would be appropriate to call [employer]'s office, go to the ER, or call 911. Insurance Coverage: Briefly explained general insurance coverage for OCR, but assured patient that OCR facility will usually call insurance and inform patient of more of an approximate coverage. Post-Discharge: Explained process between discharge from hospital, and getting set up in an OCR program - follow upwith [employer], CRN follow up calls, OCR program contact. Conclusion Patient seems likely to participate in OCR. Reassured patient of importance and health care provider support of OCR. Patient verbalized understanding of education, and all questions were answered to the best of my ability. Will complete order for OCR to be sent to [employer]. Thank you for allowing us to assistant manager pt in the care of this patient, please don't hesitate to contact the Cardiac Rehab Navigator office with any questions: [phone]. UNTING METHODS ANALYST * Fernandez Carranza MD - 10/23/2023 5:30 PM CST Images from the original note were not included. Nephrology Juvenal Garvin Jr. - 1970 Primary : Aditya Correa MD History and interval events: 53-year-old gentleman with history of type 1 diabetes mellitus on insulin pump, CHF, CAD, ESRD on peritoneal dialysis initially presented to [facility] in [facility] on October 09 for symptoms of [...] a cardiology consultation which lead to a [facility]. Results were notable for severe CAD [...] PO4 binder with meals Fernandez Carranza MD [facility]: MD Chula Domínguez, MD Renny Flood PA Derek Larson, MD FASN Rose Mattli, MD Shanda Pederson, ROBERTO [address] [place], [place] [address] [phone] - Office [phone] - Fax UNTING METHODS ANALYST * Nona Alcala PA - 10/23/2023 3:04 [...] discharge Patient discussed with LESLY Vallecillo 10/23/2023 UNTING METHODS ANALYST * Gustavo Swan, PT - 10/23/2023 10:42 [...] presents for surgical intervention on 10/14/23 from [facility]. Pt is s/p CABG x 3 (SVG-PDA, SVG-OM, BRICE-LAD) and mechanical AVR on 10/[address] Valero. Pt has history of ESRD on PD, CAD s/p PCI, VA, and DVT on chronic anticoagulation, Type 1 [...] (from Physical Therapy) Active Problems Problem: PT [facility] Start Date: 10/21/23 Goal Start Date Expected End Date End Date PT [facility] - [facility] 1 10/21/23 11/04/23 -- Goal Details: Patient will perform supine<>sit Independent. Goal Start Date Expected End Date End Date PT [facility] - [facility] 2 10/21/23 11/04/23 -- Goal Details: Patient will perform bed<>chair transfer Modified Independent with ww. Goal Start Date Expected End Date End Date PT [facility] 3 10/21/23 11/04/23 -- Goal Details: Patient will ambulate 350 feet Modified Independent with wheeled walker. Goal Start Date Expected End Date End Date PT [facility] 4 10/21/23 11/04/23 -- Goal Details: Patient will ambulate up/down 1 step Modified Independent as needed to enter and exithome. Education: Patient has been educated on the role of PT, safety , precautions, mobility training, stairs, and home exercise program. Education completed via explanation, teach back, and demonstration.Patient verbalized understanding, demonstrated understanding, and needs ongoing reinforcement UNTING METHODS ANALYST * Nusrat Us RPh - 10/23/2023 9:40 [...] the previous starting dose of 3 mg. UNTING METHODS ANALYST * Nida Starr PTA - 10/23/2023 8:10 AM CST Physical Therapy 10/23/23 0810 PT Last Visit Session Type Treatment PT Received On 10/23/23 PT Missed Visit Reason Procedure/testing/appointment (Pt is currently on PD - nursing will notify when pt is finished.) UNTING METHODS ANALYST * Saulo Kimball COTA - 10/23/2023 7:10 [...] Suzie Aiken OT at 10/23/2023 9:51 AM ACCOUNTING METHODS ANALYST UNTING METHODS ANALYST UNTING METHODS ANALYST * Bartolo Solorio MD - 10/23/2023 6:38 AM CST Cardiology Inpatient Progress Note [facility] SUBJECTIVE: Pt had no [...] cyanosis or clubbing. ASSESSMENT/PLAN: CAD - prior VA with multiple PCI - LHC showed multivessel [...] wafarin with mechanical valve Bartolo Solorio MD, [facility], [facility] 10/23/2023 6:38 AM UNTING METHODS ANALYST * Ron Martinez MD - 10/22/2023 8:57 PM CST Images from the original note were not included. Nephrology Juvenal Garvin Jr. - 1970 Primary : Aditya Correa MD History and interval events: 53-year-old gentleman with history of type 1 diabetes mellitus on insulin pump, CHF, CAD, ESRD on peritoneal dialysis initially presented to [facility] in [facility] on October 09 for symptoms of [...] regimen Start CORRINE weekly Ron Martinez MD [facility]: MD Chula Domínguez PA Graeme Mindel, MD Justin Krafft, PA Derek Larson, MD FASN Rose Mattli, NP Rohan Devanpalli, MD Candace Shirley, ROBERTO [address] [place] [id number] [phone] - Office [phone] - Fax UNTING METHODS ANALYST * Yolanda Campos PA - 10/22/2023 5:09 [...] prophylaxis Patient discussed with LESLY Danielle 10/22/2023 UNTING METHODS ANALYST * Makayla Diallo [facility] - 10/22/2023 9:06 AM CST [...] following significant increase yesterday Makayla Diallo, PharmD Imaging Specialist 10/22/23 9:06 AM UNTING METHODS ANALYST * Bartolo Solorio MD - 10/22/2023 6:43 AM CST Cardiology Inpatient Progress Note [facility] SUBJECTIVE: Pt had no [...] cyanosis or clubbing. ASSESSMENT/PLAN: CAD - prior VA with multiple PCI - [facility] showed multivessel disease - LVEF dropped [...] wafarin with mechanical valve Bartolo Solorio MD, [facility] 10/22/2023 6:43 AM UNTING METHODS ANALYST * Yolanda Campos PA - 10/21/2023 4:19 [...] prophylaxis Patient discussed with LESLY Danielle 10/21/2023 UNTING METHODS ANALYST UNTING METHODS ANALYST * Gina Mason DPT - 10/21/2023 9:05 AM CST Physical Therapy 10/21/23 0905 General Chart Reviewed Yes Session Type Evaluation PT Received On 10/21/23 Safe Environment Arm band checked;Patient found in supine;Gait belt utilized for all out of bed mobility Subjective Agreeable to Therapy Additional Pertinent History 53 y/o M presents for surgical intervention on 10/14/23 from [facility]. Pt is s/p CABG x 3 (SVG-PDA, SVG-OM, BRICE-LAD) and mechanical AVR on 10/[address] Valero. 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 UNTING METHODS ANALYST * Ron Martinez MD - 10/21/2023 8:48 AM CST Images from the original note were not included. Nephrology Juvenal Garvin Jr. - 1970 Primary : Aditya Correa MD History and interval events: 53-year-old gentleman with history of type 1 diabetes mellitus on insulin pump, CHF, CAD, ESRD on peritoneal dialysis initially presented to [facility] in [facility] on October 09 for symptoms of [...] regimen Start CORRINE weekly Ron Martinez MD [facility]: MD Chula Domínguez PA Graeme Mindel, MD Justin Krafft, PA Derek Larson, MD FASN Rose Mattli, NP Rohan Devanpalli, MD Candace Shirley, NP [address] [place], [place] [address] [phone] - Office [phone] - Fax UNTING METHODS ANALYST * Bartolo Solorio MD - 10/21/2023 8:08 AM CST Cardiology Inpatient Progress Note [facility] SUBJECTIVE: Pt had no [...] cyanosis or clubbing. ASSESSMENT/PLAN: CAD - prior VA with multiple PCI - LHC showed multivessel [...] wafarin with mechanical valve Bartolo Solorio MD, [facility], [facility] 10/21/2023 8:08 AM UNTING METHODS ANALYST * Dominique Fuentes, LUMBER INSPECTOR - 10/21/2023 12:29 AM CST 10/20/232246 NPPV Information NPPV Mode CPAP NPPV Status Refused NPPV Type V-60 NPPV ID L RT Therapist Assist Charges RT Therapist Assist NPPV 1 Encouraged patient to have his CPAP unit brought in since intolerable of ours. UNTING METHODS ANALYST * Carly Spencer, RD - 10/20/2023 3:27 PM CST Nutrition Follow-up Progress Note Encounter Date: 10/20/23 3:30 PM Nutrition Progress Summary: Patient is a 53 y.o. male. Admit Dx: CAD in [place] artery [I25.10]. Admitted on 10/13/2023. Pt s/p CABG/AVR 10/17/23. PMH includes Type I DM, ESRD on PD. Pt reports he is tolerating his meals and drinking the Nepro supplement. Increased protein intake encouraged. Pt new on Coumadin. Educated pt on Coumadin/diet interaction. Pt is familiar with his diabetic renal diet and plans to improve his adherence to diet. Regulatory Compliance Specialist consult noted. Pt with good understanding of [...] effective now Question Answer Comment ([facility]) Diet type Restricted Diabetic: Consistent Carbohydrate Renal: [...] of Weight Used for Estimated Protein : [place] Protein Needs Based on g/k.4 Total Protein Estimated Needs (gm): 105.42 Kcal/kg Type of Weight Used for Estimated Kcals: [place] Kcal/k Total Kcal/kg Estimated Needs : 2259 [...] High protein intake. Carly Spencer RD, LD UNTING METHODS ANALYST * Rehana SauloOSITO - 10/20/2023 2:40 PM [...] assistance (Moderate assist santa/doff B socks with hydrate thickener operator and sock aid, Minimal assist santa/doff sweatpants with hydrate thickener operator) Transfer 1 Trials/Comments 1 Minimal assist sit [...] Stephanie Goodman OT at 10/21/2023 2:07 PM ACCOUNTING METHODS ANALYST UNTING METHODS ANALYST UNTING METHODS ANALYST * Byron Olvera NP - 10/20/2023 12:45 PM CSTAssociated Order(s): Critical Care Post-Procedure Diagnose(s): 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[place] artery of [place] heart with stable angina pectoris (HCC) Images from the original note were not included. [facility] CVR Daily Progress Note- Patient: Juvenal Garvin Jr. : 1970 Age: 53 y.o. male Admitting Physician: Jaqueline Valero MD Light Truck Driver: Kirsten Burns MD Shift: [facility] CVR AM Interval History: NEON Admitted to the hospital on 10/13/2023 11:18 PM for CAD in [place] artery [I25.10] Hospital Course: (10/17/23) s/p CABG [...] clean, dry, intact. 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 Drains: Chest tubes to -20 suction with [...] - 10/20/2359 10/20/23699 - 10/21/23 0659 Shift [id number] 24 Hour Total 1899-0659 24 Hour Total [...] s/p mechanical AVR Post CPB LEIA on DOPE EDGER 5 with LVEF 40-50%, normal RV. (Told during report) no note in place. Arrived on DOPE EDGER 5, NE 0.05 with low filling pressures [...] in PCU while on BB SB 50-60s. DOPE EDGER weaned off overnight and EPW to VVI [...] drip prior to transfer to [facility]. Insulin pump not working when he presented [...] Olvera NP CRITICAL CARE: Team: [facility] CT Shift: AM Level of Billing: Subsequent [...] plan with the patient's team and other medical/web consultant staff. This time was in addition to and separate from care provided by other practitioners on this day of service. Cosigned by Kirsten Burns MD at 10/29/2023 10:56 PM CDT UNTING METHODS ANALYST * Nusrat Us RPh - 10/20/2023 12:06 [...] increase as much as it did today. UNTING METHODS ANALYST * Bartolo Solorio MD - 10/20/2023 9:18 AM CST Cardiology Daily Progress - [facility] SUBJECTIVE: Mr. Garvin is resting comfortably in [...] tablet 1,000 mg 1,000 mg oral Q6H [facility] aspirin chewable tablet 81 mg 81 mg [...] 0.9% (premix) solution 1,000 mg 1,000 mg [id number] PRN 1,000 mg at 10/18/23 0032 Carrier [...] No focal deficits ASSESSMENT/PLAN: CAD - prior VA with multiple PCI - C showed multivessel [...] fibrillation (HR in 60s) Salena Rene NP [facility] 10/20/2023 9:18 AM Pt evaluated with ANIMAL HUSBANDRY TECHNICIAN. He is doing well clinically with planned transfer from the ICU today. Afib rates are well-controlled (currently in the 60s) with plan detailed above. UNTING METHODS ANALYST UNTING METHODS ANALYST * Chula Valera PA - 10/20/2023 6:43 AM CST Images from the original note were not included. Nephrology Juvenal Garvin Jr. - 1970 Primary : Aditya Correa MD History and interval events: 53-year-old gentleman with history of type 1 diabetes mellitus on insulin pump, CHF, CAD, ESRD on peritoneal dialysis initially presented to [facility] in [facility] on October 09 for symptoms of [...] Continue active and nutritional vitamin-D LESLY Ortiz [facility]: MD Chula Domínguez PA Graeme Mindel, MD Justin Krafft, MD STANISLAV Camacho NP Rohan Devanpalli, MD Candace Shirley, ROBERTO [address] [place], [place] [address] [phone] - Office [phone] - Fax UNTING METHODS ANALYST UNTING METHODS ANALYST * Eliana Márquez, PT - 10/19/2023 2:25 PM CST Physical Therapy Cancellation 10/19/23 1425 PT Last Visit Session Type Other (comment) PT Received On 10/19/23 Subjective Other Subjective Comment Per RN, Pt. is too fatigued to participate in therapy, will attempt evaluation 10/19. PT Missed Visit Reason MD/RN Hold;Asleep UNTING METHODS ANALYST * Chula Valera PA - 10/19/2023 12:42 PM CST Images from the original note were not included. Nephrology Juvenal Garvin . - 1970 Primary : Aditya Correa MD History and interval events: 53-year-old gentleman with history of type 1 diabetes mellitus on insulin pump, CHF, CAD, ESRD on peritoneal dialysis initially presented to [facility] in [facility] on October 09 for symptoms of [...] a cardiology consultation which lead to a [facility]. Results were notable for severe CAD [...] vitamin-D Resume Phoslo with meals LESLY Ortiz [facility]: MD Chula Domínguez PA Graeme Mindel, MD Justin Krafft, PA Derek Larson, MD FASN Rose Mattli, NP Rohan Devanpalli, MD Candace Shirley, NP [address] - [address] [place], [place] [address] [phone] - Office [phone] - Fax UNTING METHODS ANALYST UNTING METHODS ANALYST * Reyes Odom - 10/19/2023 11:49 AM CST Occupational Therapy Evaluation 10/19/23 1035 General Chart Reviewed Yes Session Type Evaluation OT Received On 10/19/23 Safe Environment Arm band checked;Patient found in supine Subjective Agreeable to Therapy Subjective Comment I'm so cold and tired. Additional Pertinent History 53 y/o M presents for surgical intervention on 10/14/23 from [facility]. Pt is s/p CABG x 3 (SVG-PDA, SVG-OM, BRICE-LAD) and mechanical AVR on 10/[address] Valero. Pt has history of ESRD on PD, CAD s/p PCI, VA, and DVT on chronic anticoagulation, Type 1 [...] mobility at baseline. 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 Grooming Grooming: Where assessed Chair Grooming: Level of assistance Minimum Assist (Pt exhibiting functionally weak highway maintenance supervisor strength and fine motor skills with [...] Suzie Aiken OT at 10/19/2023 11:50 AM ACCOUNTING METHODS ANALYST UNTING METHODS ANALYST UNTING METHODS ANALYST * Felipe Robledo DO - 10/19/2023 8:09 [...] to chair today progressing Felipe Robledo DO, [facility] 10/19/2023 8:09 AM UNTING METHODS ANALYST * Dawna Castellanos NP - 10/19/2023 6:57 AM CSTAssociated Order(s): Critical Care Post-Procedure Diagnose(s): CAD in chippewa-cree artery Images from the original note were not included. [facility] CVR Daily Progress Note- Patient: Juvenal Garvin Jr. : 1970 Age: 53 y.o. male Admitting Physician: Jaqueline Valero MD Light Truck Driver: Kirsten Burns MD Shift: [facility] CVR AM Interval History: DOPE EDGER wean q6h for Scv02 >65-> off d/t HTN Changed to VVI 50, HR 60 Nasal cpap Dc dilaudid, dec oxy to 2.5 Admitted to the hospital on 10/13/2023 11:18 PM for CAD in chippewa-cree artery [I25.10] Hospital Course: (10/17/23) s/p CABG [...] clean, dry, intact. 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 Drains: Chest tubes to -20 suction with [...] 10/18/23699 - 10/19/2365810/19/23699 - 10/20/23 0659 Shift 2518-2253 1514-5384 24 Hour Total 8583-8951 2758-8448 24 Hour Total INTAKE P.O. 100 100 I.V.(mL/kg) 500(4) 500(4) Shift Total(mL/kg) 600(4.8) 600(4.8) OUTPUT Urine(mL/kg/hr) 155(0.1) 135(0.1) 290(0.1) 20 20 Drains 0 0 0 Other 1279 1279 1459 1459 Chest Tube 20 115 135 Shift Total(mL/kg) 1454(11.5) 250(2) 1704(13.5) 1479(11.7) 1479(11.7) NET -1454 350 1106 -1479 1470 Weight (kg) 126.2 126.2 126.2 126.2 126.2 [...] s/p mechanical AVR Post CPB LEIA on DOPE EDGER 5 with LVEF 40-50%, normal RV. (Told during report) no note in place. Arrived on DOPE EDGER 5, NE 0.05 with low filling pressures and AAI 90. Post op bleeding requiring multiple transfusions. Bleeding from CT slowed overnight but oozing at lines and drain sites. Overnight DOPE EDGER weaned off due to hypertension. EPW changed to VVI bu - Check Scvo2 and lactate now--->lactate 1.0, scvo2 70 - EPW VVI bu - CT to (-)20cm suction, can DC PCT today - ASA daily - Increase Heparin drip to full nomogram - Continue Warfarin per pharmacy - long term care social worker anticoagulation plan Warfarin and Plavix for NSTEMI - statin daily - Torsemide 100mg daily start today - DC Arterial line Paroxysmal atrial fibrillation Sinus bradycardia History of pAF. On Eliquis at home. Was on Heparin drip pre op. Arrived from OR AAI at 90 with reported bradycardia in PCU while on BB SB 50-60s. DOPE EDGER weaned off overnight and EPW to VVI [...] drip prior to transfer to [facility]. Insulin pump not working when he presented to ER. Very labile blood sugars on basal/SSI regimen with glucose up to 300s. Likely difficulty with management due to PD. Remains on Insulin infusion, glucose labile while on PD. - Continue Insulin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 remainshypertensive. Assessment and plan has been reviewed with CT Surgery & ICU attending on 10/18/23. Gamal Fox NP This note may have been dictated with voice-recognition software, roof fitter so roof fitter errors may be present. NOTICE: The above [...] Fox NP CRITICAL CARE: Team: [facility] CT Shift: PM Level of Billing: Critical [...] plan with the ICU team and other medical/web consultant staff, making frequent assessments and decisions [...] Kirsten Burns MD at 10/19/2023 11:50 AM ACCOUNTING METHODS ANALYST UNTING METHODS ANALYST UNTING METHODS ANALYST * Gamal Fox NP - 10/17/2023 6:42 PM CSTAssociated Order(s): Critical Care Post-Procedure Diagnose(s): CAD in [place] artery Physical exam: intubated, sedated, perrl A paced, signals doppled to BLE Orally intubated, Lungs diminished throughout NPO, abdomen obese, soft, absent bowel sounds, OGT to LIWS R leg w/ SVG site PENNIE, wound vac to sternum R rad AL, RIJ PAC/QLC Day time events Keep intubated and sedated tonight Ca+ DDAVP Keep DOPE EDGER 1 PRBC, 2 FFP Plan for PD [...] may have been dictated with voice-recognition software, roof fitter so roof fitter errors may be present. NOTICE: The above [...] by: Gamal Fox NP CRITICAL CARE: Team: [facility] Shift: PM Level of Billing: Critical [...] plan with the ICU team and other medical/web consultant staff, making frequent assessments and decisions [...] Kirsten Burns MD at 10/18/2023 9:16 AM ACCOUNTING METHODS ANALYST UNTING METHODS ANALYST UNTING METHODS ANALYST documented in this encounter Consult Notes * Loraine Medina RN - 10/23/2023 12:00 PM CST Juvenal Garvin Jr. [id number] Jaqueline Valero MD Pre-Education Assessment Units of [...] Name: Juvenal Garvin Jr. : 1970 Room/Bed: [place] [address]/[address] Patient has had diabetes for NUMEROUS [...] Value Date HGBA1C 8.1 (H) 10/16/2023 Pump Gantry Rigger: OMNIPOD Insulin Brand: NOVOLIN Does patient have supplies with them?: YES Bolus Wizard On?: YES INSULIN PUMP SETTINGS Total Daily Basal (TDB): 54 Basal Rates: 0000: 3.0 0800: 1.5 2000: 3.0 Insulin to Carb Ratio: 1:9 Sensitivity: 25 Target: 120 Active Insulin Time (AIT): 4 HOURS Thank you for this consult, Loraine Medina RN, Bail Bonding Agent 10/23/2023 12:44 PM UNTING METHODS ANALYST * Loraine Medina RN - 10/20/2023 10:45 AM CSTAssociated Order(s): IP CONSULT TO HUMANITIES AND LANGUAGES PROFESSOR Juvenal Garvin Jr. [id number] [place] [id number] Jaqueline Valero MD Pre-Education Assessment Units of [...] concerns at this time. Loraine Medina, LUAN, Bail Bonding Agent 10/20/2023 11:27 AM UNTING METHODS ANALYST * Augustin Bethea MD - 10/18/2023 10:51 [...] ketoacidosis, elevated cardiac enzymes. Further evaluation with [facility] revealed multivessel coronary artery disease. Patient transferred to [facility] for CABG. Patient underwent CABG x 3, mechanical AVR . Endocrine diabetes management. Hemoglobin A1c noted to be 8.1% 10/14, Patient has an insulin pump at home, not review his setting as the pump not available bedside. Patient continues to be confused and could not provide any history From endocrinology note in the past at [facility] 2021: BASAL RATE TOTAL BASAL DAILY DOSE: [...] PUMP: Continue Omnipod 5 insulin pump with ELERTS G6 CGM at home settings: TIME BASAL [...] high Assessment /Plan Principal Problem: CAD in [place] artery 1. Uncontrolled type 1 diabetes, A1c [...] don't hesitate to call. Augustin Bethea MD [facility] [email or web address] Office phone: [phone] Office fax: [phone] UNTING METHODS ANALYST UNTING METHODS ANALYST * Fernandez Carranza MD - 10/14/2023 3:27 PM CSTAssociated Order(s): IP CONSULT TO NEPHROLOGY Images from the original note were not included. Nephrology Juvenal Garvin Jr. - 1970 Primary : Aditya Correa MD History and interval events: 53-year-old gentleman with history of type 1 diabetes mellitus on insulin pump, CHF, CAD, ESRD on peritoneal dialysis initially presented to [facility] in [facility] on October 09 for symptoms of [...] him to hemodialysis perioperatively Fernandez Carranza MD [facility]: Ron R. Mehama, LESLY Givens MD Justin Krafft, PA Derek Larson, MD FASN Rose Mattli, NP Rohan Devanpalli, MD Candace Shirley, NP [address] - [address] [place], [place] [address] [phone] Office [phone] - Fax UNTING METHODS ANALYST UNTING METHODS ANALYST * Guerline Rodriguez PA - 10/14/2023 2:10 PM CSTAssociated Order(s): IP CONSULT TO CARDIOTHORACIC SURGERY Cardiothoracic Surgery Consultation Patient Name: Juvenal Garvin Jr. Admit Date: 10/13/2023 Admitting Provider: Julio Lopez DO Chief Complaint Multivessel coronary artery disease, aortic valve stenosis History of Present Illness Juvenal Garvin is a 53-year-old male who has been transferred to [facility] for consideration of coronary artery bypass grafting and aortic valve replacement. His past medical history includes severe CAD with previous PCI, paroxysmal atrial fibrillation, type 1 diabetes mellitus, ESRD on peritoneal dialysis, hypertension, hyperlipidemia, and sleep apnea. He presented to [facility] in [place], [place] on 10/09/23 complaining of fatigue, malaise, [...] He has been transferred to [facility] for consideration of coronary artery bypass and aortic valve replacement. He had been receiving Eliquis and Plavix up until transfer to [facility]. Since arrival here he denies any additional chest pain episodes. His glucose levels continue to fluctuate but have reasonably controlled today. Past Medical History: Diagnosis Date CAD (coronary artery disease) Chest pain Diabetes mellitus (HCC) Diabetes mellitus type I (HCC) Dialysis patient ([facility]) (HCC) ESRD on dialysis ([facility]) (HCC) GERD (gastroesophageal reflux disease) [...] 0.5-20 mL, 0.5-20 mL, intra-catheter, Q8H ASHLEY, Jluio Lopez DO, 10 mL at 10/14/23 0105 [...] Jaqueline Valero MD at 10/15/2023 10:55 AM ACCOUNTING METHODS ANALYST UNTING METHODS ANALYST UNTING METHODS ANALYST UNTING METHODS ANALYST UNTING METHODS ANALYST Associated attestation - Jaqueline Valero MD - 10/15/2023 10:55 AM ACCOUNTING METHODS ANALYST I have seen and examined the patient, reviewed the electronic medical record, personally reviewed the patient's cardiac catheterization, and agree with the attached history and physical. In brief, he is a 53-year-old man with a history of end-stage renal disease on peritoneal dialysis,myocardial infarction, multiple prior coronary stenting procedures, and DVT who presented to [facility] with progressive exertional shortness breath, chest pain, and hyperglycemia. Repeat cardiac catheterization there revealed progressive coronary artery disease, which is now severe in all 3main coronary arteries. His left ventricular systolic function was abnormal and an echocardiogram there revealed significant aortic valve stenosis. And severe left ventricular systolic dysfunction. He was transferred to [facility] for further workup and treatment. [...] for Monday. Jaqueline Valero MD Cardiothoracic Surgery [facility] * Pradeep Reeves, ANIMAL HUSBANDRY TECHNICIAN - 10/14/2023 12:13 PM CSTAssociated Order(s): IP CONSULT TO CARDIOLOGY Cardiology Consult - [facility] Reason For Consult: CAD Requesting Provider: Frank Cody MD SUBJECTIVE: Chief Complaint/History of Present Illness: Mr. Garvin is a 53 y/o man with hx of hypertension, dyslipidemia, diabetes, CAD s/p multiple prior PCI, ESRD, paroxysmal atrial fibrillation and DVT and BEN. The patient presented to [facility] with a complaint of hyperglycemia. He has [...] his echo. He was transferred to [facility] for CTS evaluation. He is on a [...] Diabetes mellitus type I (HCC) Dialysis patient ([facility]) (HCC) ESRD on dialysis ([facility]) (HCC) GERD (gastroesophageal reflux disease) [...] PUMP: Continue Omnipod 5 insulin pump with ELERTS G6 CGM at home settings: TIME BASAL [...] and affect appropriate -Cardiac Cath (10/13/23 at [facility]): LM no dz. LCX 99% ostial stenosis and 90% stenosis atOM/LCX bifurcation. LAD mild diffuse disease in the ostium with a 90% stenosis at the origin of a very small high diagonal branch and otherwise mild LAD disease. RCA 99% mid stenosis. -Echo (10/11/23 at [facility]): LVEF 20-25%, moderate ASSESSMENT/PLAN: 1. CAD: The [...] any questions, please don't hesitate to call. SHAMIAK [facility] 10/14/2023 12:13 PM Cosigned by Felipe Robledo DO at 10/15/2023 10:13 AM ACCOUNTING METHODS ANALYST UNTING METHODS ANALYST UNTING METHODS ANALYST UNTING METHODS ANALYST UNTING METHODS ANALYST documented in this encounter Nursing Notes * [...] (Comments): blister-popped Wound Status Healing Site Assessment [place];Moist Marie-wound Assessment Fragile;Flaky;Dry;Erythematous Margins Defined edges Closure Unapproximated Drainage Amount Small Drainage Description Serous Drainage Odor No odor Dressing Status New Dressing Silver foam;Gauze rolled Interventions Cleansed Recommendations: police lieutenant to complete Polymem dressing as ordered. Pressure injury prevention measures dn moisture management in place. Education: Plan of Care discussed with: Patient, police lieutenant Questions answered: YES Wound/Ostomy will follow patient: [...] PUMP: Continue Omnipod 5 insulin pump with [employer] G6 CGM at home settings: TIME BASAL [...] high Assessment /Plan Principal Problem: CAD in [place]cree artery 1. Uncontrolled type 1 diabetes, A1c [...] out of town till 11/14. Pl call addictions counselor provider. Once ready per primary team can [...] don't hesitate to call. Augustin Bethea MD [facility] [email or web address] Office phone: [phone] Office fax: [phone] * Plan of Care - Jessica Rodriguez [...] PUMP: Continue Omnipod 5 insulin pump with ELERTS G6 CGM at home settings: TIME BASAL [...] high Assessment /Plan Principal Problem: CAD in [place] artery 1. Uncontrolled type 1 diabetes, A1c [...] don't hesitate to call. Augustin Bethea MD [facility] [email or web address] Office phone: [phone] Office fax: [phone] * Post-Procedure Note - Basilia John RN [...] PUMP: Continue Omnipod 5 insulin pump with ELERTS G6 CGM at home settings: TIME BASAL [...] high Assessment /Plan Principal Problem: CAD in [place] artery 1. Uncontrolled type 1 diabetes, A1c [...] don't hesitate to call. Augustin Bethea MD [facility] [email or web address] Office phone: [phone] Office fax: [phone] * Post-Procedure Note - Basilia John RN [...] PM CDT Received notification from [facility] acute rehab liaison officer, Carey Phillips , patients [employer] Medicare insurance denied request for authorization for inpatient acute rehab . Peer to peer offered at [phone] opt 4.peer to peer needs to be requested by 1200 noon tomorrow, 10/30. Reference no. [id number]. Member ID no. [id number]. Guerline GRACE notified of above. * Consults, [...] PUMP: Continue Omnipod 5 insulin pump with ELERTS G6 CGM at home settings: TIME BASAL [...] high Assessment /Plan Principal Problem: CAD in [place] artery 1. Uncontrolled type 1 diabetes, A1c [...] don't hesitate to call. Augustin Bethea MD [facility] [email or web address] Office phone: [phone] Office fax: [phone] * Post-Procedure Note - Sugar Swanson RN [...] Afebrile. Room air. NSR. Pain treated with [employer]. ABX started for patients right leg.Lower dopplers [...] Room air. NSR. Patient pain treated with [employer]. Left herman dressing changed x1 due to leaking. UNTING METHODS ANALYST * Plan of Care - Roel West LCSW - 10/28/2023 3:40 PM CST Gem Cutter covering and followed up with request to learn if patient was approved for inpatient rehabilitation/insurance authorization status. SW inquired with Dr. yMa Frederick and awaiting notification. Intake Coordinators are not on-site and not customary to receive notification from insurance on weekend. UNTING METHODS ANALYST * Consults, Subsequent - Augustin Bethea MD - 10/28/2023 2:50 PM ACCOUNTING METHODS ANALYST Endocrine Note Reason for Consult: type 1 [...] THIS IS FOR THE INSULIN PUMP: Continue MeileleipCuciniale 5 insulin pump with ELERTS G6 CGM at home settings: TIME BASAL [...] high Assessment /Plan Principal Problem: CAD in [place] artery 1. Uncontrolled type 1 diabetes, A1c [...] don't hesitate to call. Augustin Bethea MD [facility] baystate wing [email or web address] Office phone: [phone] Office fax: [phone] UNTING METHODS ANALYST UNTING METHODS ANALYST * Post-Procedure Note - Basilia John RN - 10/28/2023 7:14 AM ACCOUNTING METHODS ANALYST Peritoneal Dialysis Treatment Summary: Juvenal Michael Garvin [...] well. Denied any c/o. PD drsg D&I UNTING METHODS ANALYST * Consults, Subsequent - Augustin Bethea MD - 10/27/2023 5:47 PM ACCOUNTING METHODS ANALYST Endocrine Note Reason for Consult: type 1 [...] PUMP: Continue Omnipod 5 insulin pump with ELERTS G6 CGM at home settings: TIME BASAL [...] high Assessment /Plan Principal Problem: CAD in [place] artery 1. Uncontrolled type 1 diabetes, A1c [...] don't hesitate to call. Augustin Bethea MD [facility] [email or web address] Office phone: [phone] Office fax: [phone] UNTING METHODS ANALYST * Plan of Care - Genie Benjamin RN - 10/27/2023 12:55 PM CST [facility] inpatient acute rehab specialist pursuing insurance authorization for rehab when patient medically stable for discharge to rehab. UNTING METHODS ANALYST * Post-Procedure Note - Radha Mercado RN [...] Tolerated tx without issues. Effluent clear yellow. UNTING METHODS ANALYST * Consults, Subsequent - Augustin Bethea MD - 10/26/2023 6:25 PM ACCOUNTING METHODS ANALYST Endocrine Note Reason for Consult: type 1 [...] PUMP: Continue Omnipod 5 insulin pump with ELERTS G6 CGM at home settings: TIME BASAL [...] high Assessment /Plan Principal Problem: CAD in [place] artery 1. Uncontrolled type 1 diabetes, A1c [...] don't hesitate to call. Augustin Bethea MD [facility] [email or web address] Office phone: [phone] Office fax: [phone] UNTING METHODS ANALYST * Plan of Care - Manda Solorzano RN - 10/26/2023 12:06 PM CST Per LIANET, pt has been accepted to [facility] Rehab (auth pending). Pt will be removed from [facility] schedule and no services provided at this time. UNTING METHODS ANALYST * Plan of Care - Jacquelin Veliz MSW - 10/26/2023 10:43 AM CST FAMILY DINNER SERVICE SPECIALIST received message from Michelle with [facility] and they are able to accept Pt. They will start insurance authorization as PA feels that Pt is close to discharge. FAMILY DINNER SERVICE SPECIALIST met with Pt at bedside to let him know [facility] and will be starting insurance authorization for him. Pt states that he is agreeable to discharging to acute rehab when ready for discharge. UNTING METHODS ANALYST * Post-Procedure Note - Basilia John RN - 10/26/2023 7:30 AM ACCOUNTING METHODS ANALYST Peritoneal Dialysis Treatment Summary: Juvenal Garvin Jr. [...] well. Denied any c/o. PD drsg D&I UNTING METHODS ANALYST * Plan of Care - Cyndi Persaud RN - 10/25/2023 4:14 PM CST Goals: Clinical Goals for the Shift: VSS. Afebrile. Room air. NSR. Monitor heart rate and rhythm. Manage pain. Manage heparin drip. Monitor PTTs. PD. Walk x3. Ensure safety and comfort. Summary: VSS. Afebrile. Room air. NSR. Pain treated with a one time dose of [employer]. Most recent PTT is 72. Heparin drip at 12.7units/kg/hr. UNTING METHODS ANALYST * Consults, Subsequent - Augustin Bethea MD - 10/25/2023 11:14 AM ACCOUNTING METHODS ANALYST Endocrine Note Reason for Consult: type 1 [...] THIS IS FOR THE INSULIN PUMP: Continue [employer] 5 insulin pump with ELERTS G6 CGM at home settings: TIME BASAL [...] high Assessment /Plan Principal Problem: CAD in [place] artery 1. Uncontrolled type 1 diabetes, A1c [...] don't hesitate to call. Augustin Bethea MD [facility] [email or web address] Office phone: [phone] Office fax: [phone] UNTING METHODS ANALYST * Post-Procedure Note - Radha Mercado RN [...] Comments: Tolerated tx well. Effluent clear, yellow. UNTING METHODS ANALYST * Plan of Care - Carey Alas [...] 20 SpO2: [96 %-98 %] 96 % UNTING METHODS ANALYST * Consults, Subsequent - Augustin Bethea MD - 10/24/2023 11:07 AM ACCOUNTING METHODS ANALYST Endocrine Note Reason for Consult: type 1 [...] PUMP: Continue Omnipod 5 insulin pump with ELERTS G6 CGM at home settings: TIME BASAL [...] high Assessment /Plan Principal Problem: CAD in [place] artery 1. Uncontrolled type 1 diabetes, A1c [...] don't hesitate to call. Augustin Bethea MD [facility] [email or web address] Office phone: [phone] Office fax: [phone] UNTING METHODS ANALYST * Post-Procedure Note - Radha Mercado RN [...] Tolerated tx without issues. Effluent clear yellow. UNTING METHODS ANALYST * Plan of Care - Lucinda Mathews [...] during sleep periods will improve Outcome: Progressing UNTING METHODS ANALYST UNTING METHODS ANALYST UNTING METHODS ANALYST * Plan of Care - Carey Alas [...] 20 SpO2: [95 %-99 %] 95 % UNTING METHODS ANALYST * Plan of Care - Genie Benjamin RN - 10/23/2023 12:17 PM CST PT/OT recommending inpatient acute rehab at discharge. Informed patient of above. Patient declined rehab facility list and states he prefers [facility] inpatient acute rehab hospital. Referral sent. Response pending. UNTING METHODS ANALYST * ECIN Note - Genie Benjamin RN [...] presents for surgical intervention on 10/14/23 from [facility]. Pt is s/p CABG x 3 (SVG-PDA, SVG-OM, BRICE-LAD) and mechanical AVR on 10/[address] Valero. Pt has history of ESRD on PD, CAD s/p PCI, VA, and DVT on chronic anticoagulation, Type 1 [...] and mobility at baseline. 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 -HK Grooming: Where assessed -- Chair -HK Grooming: Level of assistance -- Minimum Assist Pt exhibiting functionally weak highway maintenance supervisor strength and fine motor skills with [...] -- Moderate assist santa/doff B socks with hydrate thickener operator and sock aid,Minimal assist santa/doff sweatpants with hydrate thickener operator -KB -- Bed Mobility Comments 1 SBA [...] presents for surgical intervention on 10/14/23 from [facility]. Pt is s/p CABG x 3 (SVG-PDA, SVG-OM, BRICE-LAD) and mechanical AVR on 10/[address] aVlero. 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 Pt is s/p CABG x 3 (SVG-PDA, SVG-OM, BRICE-LAD) and mechanical AVR on 10/[address] Valero. Pt has history of ESRD on PD, CAD s/p PCI, VA, and DVT on chronic anticoagulation, Type 1 [...] Initials Name Effective Dates SS Nida Starr, CDL A DRIVER 06/30/22 - Eliana Joiner, PT 12/05/22 - NW Gustavo Swan, PT 04/10/23 - PT Notes 10/21/2023 10:25 AM Progress Notes signed by Gina Mason DPT 10/23/2023 11:53 AM Progress Notes signed by Gustavo Swan, PT , ACID CONDITIONER Eval and Treat Last 72 Hours ACID CONDITIONER Evaluation No documentation. ACID CONDITIONER Treatment No documentation. Clinical Swallow Study No documentation. ACID CONDITIONER Notes Notes from 10/21/23 through 10/23/23 No notes of this type exist for this encounter. UNTING METHODS ANALYST * Consults, Subsequent - Augustin Bethea MD - 10/23/2023 10:48 AM ACCOUNTING METHODS ANALYST Endocrine Note Reason for Consult: type 1 [...] PUMP: Continue Omnipod 5 insulin pump with ELERTS G6 CGM at home settings: TIME BASAL [...] high Assessment /Plan Principal Problem: CAD in [place] artery 1. Uncontrolled type 1 diabetes, A1c [...] don't hesitate to call. Augustin Bethea MD [facility] [email or web address] Office phone: [phone] Office fax: [phone] UNTING METHODS ANALYST * Post-Procedure Note - Radha Mercado, LUAN [...] Tolerated tx without issues. Effluent clear, yellow. UNTING METHODS ANALYST * Plan of Care - Jessica Rodriguez [...] impaired skin integrity will decrease Outcome: Progressing UNTING METHODS ANALYST * Post-Procedure Note - Rayna Be RN - 10/22/2023 12:03 PM ACCOUNTING METHODS ANALYST Peritoneal Dialysis Treatment Summary: Juvenal Garvin Jr. [...] dwell time. Added dwell time 7 minutes. UNTING METHODS ANALYST * Plan of Care - Hermes Savage, LUMBER INSPECTOR - 10/22/2023 7:30 AM CST Problem: Obstructive Sleep Apnea (BEN) Goal: Patients ability to maintain adequate ventilation during sleep periods will improve Outcome: Progressing Positive Expiratory Pressure Therapy Patient educated on goals of vibratory PEP therapy. Will continue to monitor patient technique and encourage use of Vibratory PEP device. Patient educated on effective cough and deep breathing at this time. UNTING METHODS ANALYST * Plan of Care - Jessica Rodriguez [...] impaired skin integrity will decrease Outcome: Progressing UNTING METHODS ANALYST * Consults, Subsequent - Augustin Bethea MD - 10/21/2023 4:43 PM ACCOUNTING METHODS ANALYST Endocrine Note Reason for Consult: type 1 [...] PUMP: Continue Omnipod 5 insulin pump with ELERTS G6 CGM at home settings: TIME BASAL [...] high Assessment /Plan Principal Problem: CAD in [place] artery 1. Uncontrolled type 1 diabetes, A1c [...] don't hesitate to call. Augustin Bethea MD [facility] [email or web address] Office phone: [phone] Office fax: [phone] UNTING METHODS ANALYST * Plan of Care - Hermes Savage [...] cough and deep breathing at this time. UNTING METHODS ANALYST * Post-Procedure Note - Sugar Swanson RN [...] fibrin. Dr. Martinez notified of all findings. UNTING METHODS ANALYST * Plan of Care - Dominique Fuentes RRT - 10/20/2023 8:19 PM CST Problem: Respiratory Goal: Achieves optimal ventilation and oxygenation Outcome: Progressing Positive Expiratory Pressure Therapy Patient educated on goals of PEP therapy. Will continue to monitor patient technique and encourage use of PEP device. Patient educated on effective cough and deep breathing at this time. UNTING METHODS ANALYST * Plan of Care - Summer Pradhan [...] except when coughing. Tylenol given. Comfort/safety ensured. UNTING METHODS ANALYST * Consults, Subsequent - Augustin Bethea MD - 10/20/2023 3:50 PM ACCOUNTING METHODS ANALYST Endocrine Note Reason for Consult: type 1 [...] PUMP: Continue Omnipod 5 insulin pump with [employer] G6 CGM at home settings: TIME BASAL [...] high Assessment /Plan Principal Problem: CAD in [place] artery 1. Uncontrolled type 1 diabetes, A1c [...] don't hesitate to call. Augustin Bethea MD [email or web address] Office phone: [phone] Office fax: [phone] UNTING METHODS ANALYST * Post-Procedure Note - Sugar Swanson RN [...] Dressing c/d/I. Clear yellow effluent with fibrin. UNTING METHODS ANALYST * Plan of Care - Hermes Savage [...] to monitor sputum amount, color, and consistency. UNTING METHODS ANALYST * Plan of Care - Campos Farmer [...] labs, titrate heparin to therapeutic, pain control UNTING METHODS ANALYST * Consults, Subsequent - Augustin Bethea MD - 10/19/2023 7:08 PM ACCOUNTING METHODS ANALYST Endocrine Note Reason for Consult: type 1 [...] PUMP: Continue Omnipod 5 insulin pump with Netevencom G6 CGM at home settings: TIME BASAL [...] high Assessment /Plan Principal Problem: CAD in [place] artery 1. Uncontrolled type 1 diabetes, A1c [...] don't hesitate to call. Augustin Bethea MD [facility] [email or web address] Office phone: [phone] Office fax: [phone] UNTING METHODS ANALYST * Plan of Care - Toña Saha [...] protocol. Wean FiO2 to maintain SpO2 >92%. UNTING METHODS ANALYST * Post-Procedure Note - Sugar Swanson RN [...] Clear yellow effluent with fibrin. MD notified. UNTING METHODS ANALYST * Plan of Care - Ken Martell RRT - 10/18/2023 10:25 PM CST NPPV Patient is tolerating non-invasive ventilation well. Mask fits well with minimal leak. No skin break down noted. Will continue to monitor and titrate per MD order. UNTING METHODS ANALYST * Provider Query - Dawna Castellanos NP - 10/18/2023 6:36 PM CST The documentation is unclear. Please clarify the 10/17 documentation of NSTEMI. (See Criteria Below). ___ Hx of NSTEMI (Greater than 28 days ago) _x__ Acute NSTEMI occurred at OSH and pt transferred to [facility] for continued care for NSTEMI ___ Other (Specify): Provider Response: Clinical Indicators/Treatment: - Per EPIC: Hx of NSTEMI in June 2022 - Transfer from OSH with CAD and - 10/17 PN: NSTEMI s/p CABG...During hospitalization found to have elevated Troponins prompted cardiology evaluation and LHC significant for multivessel CAD and subsequently also found aortic stenosis. - 10/18 PN : CAD.. Prior VA and multiple PCI.. the patient underwent cardiac cath that showed multivessel disease. - Labs/Notes from OSH not available - Treatment: CABG: References: Fourth [place] Definition of Myocardial Infarction Myocardial Infarction Diagnosis of myocardial infarction requires: Elevated troponin blood test (troponin value above 99th percentile upper reference limit) AND at least one of the following: Symptoms of acute myocardial ischemia (Types 1-5 VA) Clinical evidence of ischemia, as evidenced in an EKG showing new ischemic changes (Type 1, Type 2,Type 3, or Type 4a VA) Development of pathological Q waves (Types 1-5 VA) Imaging evidence of new loss of viable myocardium or new regional wall motion abnormality in a pattern consistent with an ischemic etiology (Types 1-5 VA) Identification of a coronary thrombus by angiography including intracoronary imaging or by autopsy (Type 1 VA only) Angiographic findings consistent with procedural flow-limiting [...] Guidelines for Coding and Reporting, 2019 Fourth [place] Definition of Myocardial Infarction, Scot Uriostegui et al., Journal of [place] College of Cardiology 2018March 2018, http://www.onlinejacc.org/content/early//j.jacc [email or web address] Fourth [place] Definition Separates VA From Myocardial Injury, iLsa Freeman., [employer] News, April 15, 2018, [email or web address] [place] definition of myocardial infarction, Joint ESC/ACCF/AHA/WHF Task [...] become part of the patient???s medical record. UNTING METHODS ANALYST * Plan of Care - Renetta Keys [...] 2L NC. Pulls 1500 on IS. 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 Insulin gtt continues per orders. Appetite hindered due to nausea and some vomiting this afternoon. Zofran and haldol given. Pt states is better but doesn't want to eat at this time. Will continue to encourage increased activity, IS, Improved appetite, UNTING METHODS ANALYST * Post-Procedure Note - Sugar Swanson RN [...] and intact and effluent clear and yellow. UNTING METHODS ANALYST * Plan of Care - Ken Martell, FANY - 10/18/2023 3:31 AM CST Mechanical Ventilation Patient is seen on full ventilator support. Patient is synchronous with the ventilator at the time.Will continue to monitor all pertinent lab data, chest radiographs and CT scans when available. Will titrate per MD order. UNTING METHODS ANALYST * Op Note - Jaqueline Valero MD [...] mm OnX mechanical prosthesis, model #ONXANE, serial #[id number] ) 2. Coronary artery bypass grafting x [...] placement (25 cm) DATE OF PROCEDURE 10/17/2023 DIRECTOR SALES SUPPORT CEZAR Bernstein ANESTHESIA General Endotracheal Anesthesia ANESTHESIOLOGIST [...] continuous 6-0 Prolene suture. A retrograde orthotic technician was given, the patient was placed into [...] checked through the bypass grafts with a Oravel Doppler flow probe and each was found [...] Physician) Aditya Correa MD (Primary Care Provider) UNTING METHODS ANALYST * Brief Op Note - Jaqueline Valero MD - 10/17/2023 8:47 AM CST Operative Progress Note Surgical Team: Surgeons and Role: * Jaqueline Valero MD - Primary Anesthesiologist: Ayden Alan MD WASTEWATER TREATMENT PLANT INSTRUCTOR: Ravi Thacker CRNA Ward Maid: Chang Stout CCP; Fransisco Ziegler CCP Pari Mutual Ticket Checker: Nini Gibbs RN Scrub: Yamilet Bolivar RN; Teresa Dillon ST RNFA: Jessica Frost RN; Carey Weber RN Orientee P[employer] Mutual Ticket Checker: Dee Ibarra RN DATE OF SURGERY : 10/17/2023 Preoperative Diagnosis: Pre-op Diagnosis * Aortic valve stenosis, etiology of cardiac valve disease unspecified [I35.0] * Coronary arteriosclerosis in [place] artery [I25.10] Postoperative Diagnosis: Post-op Diagnosis * Aortic valve stenosis, etiology of cardiac valve disease unspecified [I35.0] * Coronary arteriosclerosis in [place] artery [I25.10] Procedure(s): Procedure(s) (LRB): CORONARY ARTERY [...] Implant Name Type Inv. Item Serial No. Gantry Rigger Lot No. LRB No. Used Action ON-X INTRNL Valve Coronary Aortic Mechanical On X 25mm ONXANE-25 - [id number] - [id number] ON-X INTRNL Valve Coronary Aortic Mechanical On X 25mm ONXANE-25 [id number] On-X Intrnl N/A 1 Implanted Blood/Blood Products Transfused: 1 unit platelets, 2 units FFP, 10 pack cryo, 3 units PRBC Complications: None Condition on Discharge from the operating room was stable Jaqueline Valero MD Date: 10/17/2023 Time: 12:59 PM No Resident involved on case UNTING METHODS ANALYST * Post-Procedure Note - Zia Mahoney RN - 10/17/2023 3:38 AM ACCOUNTING METHODS ANALYST Peritoneal Dialysis Treatment Summary: Juvenal Garvin Jr. [...] well. Effluent yellow and clear. Dressing c/d/i. UNTING METHODS ANALYST * Plan of Care - Lucinda Mathews, FANY - 10/16/2023 9:28 PM CST NPPV- Patient is tolerating non-invasive ventilation well. Mask fits well with minimal leak. No skin break down noted. Will continue to monitor and titrate per MD order. Problem: Obstructive Sleep Apnea (BEN) Goal: Patients ability to maintain adequate ventilation during sleep periods will improve Outcome: Progressing UNTING METHODS ANALYST * Plan of Care - Yamilet Lopez [...] Understanding discharge needs will improve Outcome: Progressing UNTING METHODS ANALYST * Initial Assessments - Genie Benjamin RN - 10/16/2023 10:46 AM ACCOUNTING METHODS ANALYST CM Initial Assessment Interview Note Information Obtained [...] Medicare and IDPA Prescription Coverage: yes Pharmacy: [id number] - [place], [place] - [address] [place] [address] Primary Care Provider: Aditya Correa MD Prior [...] a week How often do you attend caodaism or mosque services?: 1 to 4 times per year Do you belong to any clubs or organizations such as caodaism groups, unions, fraternal [...] Screening Potential discharge needs include: Home Health: detention (10/16/231041) Dialysis: Dialysis History Start End Type Center Comments Peritoneal [facility] Dialysis Center Information [facility] Address: [address] [place] [address] Behavioral Health Services: Behavioral Health Services: No (10/16/231041) Patient expects to be Discharged to: Private residence, (10/16/231041) Additional Information: 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 [facility] in [place], [place] under the care of Dr. Stephen. [...] Collaboration with patient, MD, direct care nurse, Gem Cutter, and other members of the health care team to assure needed interventions completed. 2. Return patient to optimal level of self-care post discharge. 3. Auto Emissions Technician will follow for Discharge Planning - interventions as needed 4. Anticipated level of care at discharge 5. Planned Discharge Disposition Genie Benjamin RN UNTING METHODS ANALYST * Post-Procedure Note - Jackie Masters RN [...] & intact , Effluent clear & yellow UNTING METHODS ANALYST * Plan of Care - Juanito Barrett RRT - 10/15/2023 9:43 PM CST Nocturnal CPAP Patient is tolerating non-invasive ventilation well. Mask fits well with minimal leak. No skin break down noted. Will continue to monitor and titrate per MD order.Oxygen Therapy Patient is being managed on oxygen titration protocol. Wean FiO2 to maintain SpO2 >92%. UNTING METHODS ANALYST * Plan of Care - Janett Schulz [...] c/o chest pain, therapeutic on heparin infusion UNTING METHODS ANALYST * Post-Procedure Note - Zia Mahoney RN - 10/15/2023 4:44 AM ACCOUNTING METHODS ANALYST Peritoneal Dialysis Treatment Summary: Juvenal Garvin Jr. [...] well. Effluent yellow and clear. Dressing c/d/I. UNTING METHODS ANALYST * Plan of Care - Juanito Barrett RRT - 10/14/2023 9:44 PM CST Nocturnal CPAP Patient is tolerating non-invasive ventilation well. Mask fits well with minimal leak. No skin break down noted. Will continue to monitor and titrate per MD order.Oxygen Therapy Patient is being managed on oxygen titration protocol. Wean FiO2 to maintain SpO2 >92%. UNTING METHODS ANALYST * Plan of Care - Janett Schulz [...] pain, heparin gtt subtherapeutic, adjusted trinity MAR UNTING METHODS ANALYST * Plan of Care - Ellie Zeng RN - 10/14/2023 1:55 AM CST Goals: Clinical Goals for the Shift: monitor vs tele labs and blood sugars, orientate to unit, promote comfort and safety, manage pain Summary: patient stable throughout shift with no complaints of pain. Blood sugars trending down, patient had RT set up CPAP for sleep. Patient NPO since 0000. UNTING METHODS ANALYST UNTING METHODS ANALYST documented in this encounter Plan of Treatment Pending Results Name Type Priority Associated Diagnoses Date /Time Renal function panel Lab Routine 09/22 1:06 AM ACCOUNTING METHODS ANALYST Fibrinogen Lab Routine 10/18/2023 1:5 4 AM ACCOUNTING METHODS ANALYST Protime-INR Lab Timed 10/25/2023 12 :33 AM ACCOUNTING METHODS ANALYST aPTT Lab Routine 10/26/2023 2:2 9 AM ACCOUNTING METHODS ANALYST aPTT Lab Routine 10/27/2023 2:3 0 AM ACCOUNTING METHODS ANALYST TSH Lab Routine 10/27/2023 2:3 0 AM ACCOUNTING METHODS ANALYST Scheduled Orders Name Type Priority Associated Diagnoses [...] Home Health Outpatient Referral Routine CAD in [place] artery 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[place] artery of [place] heart with stable angina pectoris (CMS/HCC) (HCC) [...] PERITONEAL DIALYSIS (CCPD) Routine 10/29/2023 12:30 AM ACCOUNTING METHODS ANALYST POCT GLUCOSE DEVICE Routine 10/28/2023 8:22 PM ACCOUNTING METHODS ANALYST POCT GLUCOSE DEVICE Routine 10/28/2023 5:24 PM ACCOUNTING METHODS ANALYST POCT GLUCOSE DEVICE Routine 10/28/2023 12:45 PM ACCOUNTING METHODS ANALYST POCT GLUCOSE DEVICE Routine 10/28/2023 8:04 AM ACCOUNTING METHODS ANALYST XR CHEST 1 VIEW IP Routine 10/28/2023 6:00 AM ACCOUNTING METHODS ANALYST EGFR Routine 10/28/2023 12:34 AM ACCOUNTING METHODS ANALYST APTT Routine 10/28/2023 12:34 AM ACCOUNTING METHODS ANALYST PROTIME-INR Routine 10/28/2023 12:34 AM ACCOUNTING METHODS ANALYST CBC WITHOUT DIFFERENTIAL Routine 10/28/2023 12:34 AM ACCOUNTING METHODS ANALYST MAGNESIUM Routine 10/28/2023 12:34 AM ACCOUNTING METHODS ANALYST RENAL FUNCTION PANEL Routine 10/28/2023 12:34 AM ACCOUNTING METHODS ANALYST CONTINUOUS CYCLIC PERITONEAL DIALYSIS (CCPD) Routine 10/28/2023 12:30 AM ACCOUNTING METHODS ANALYST POCT GLUCOSE DEVICE Routine 10/27/2023 10:01 PM ACCOUNTING METHODS ANALYST POCT GLUCOSE DEVICE Routine 10/27/2023 5:48 PM ACCOUNTING METHODS ANALYST CONTINUOUS CYCLIC PERITONEAL DIALYSIS (CCPD) Routine 10/27/2023 3:23 PM ACCOUNTING METHODS ANALYST POCT GLUCOSE DEVICE Routine 10/27/2023 11:54 AM ACCOUNTING METHODS ANALYST T4, FREE Routine 10/27/2023 11:02 AM ACCOUNTING METHODS ANALYST POCT GLUCOSE DEVICE Routine 10/27/2023 8:28 AM ACCOUNTING METHODS ANALYST XR CHEST 1 VIEW IP Routine 10/27/2023 6:14 AM ACCOUNTING METHODS ANALYST OSMOLALITY, BLOOD Routine 10/27/2023 6:02 AM ACCOUNTING METHODS ANALYST EGFR Routine 10/27/2023 2:30 AM ACCOUNTING METHODS ANALYST APTT Routine 10/27/2023 2:30 AM ACCOUNTING METHODS ANALYST PROTIME-INR Routine 10/27/2023 2:30 AM ACCOUNTING METHODS ANALYST CBC WITHOUT DIFFERENTIAL Routine 10/27/2023 2:30 AM ACCOUNTING METHODS ANALYST TSH Routine 10/27/2023 2:30 AM ACCOUNTING METHODS ANALYST MAGNESIUM Routine 10/27/2023 2:30 AM ACCOUNTING METHODS ANALYST RENAL FUNCTION PANEL Routine 10/27/2023 2:30 AM ACCOUNTING METHODS ANALYST POCT GLUCOSE DEVICE Routine 10/26/2023 11:15 PM ACCOUNTING METHODS ANALYST POCT GLUCOSE DEVICE Routine 10/26/2023 4:53 PM ACCOUNTING METHODS ANALYST POCT GLUCOSE DEVICE Routine 10/26/2023 11:57 AM ACCOUNTING METHODS ANALYST PEP THERAPY Routine 10/26/2023 8:00 AM ACCOUNTING METHODS ANALYST POCT GLUCOSE DEVICE Routine 10/26/2023 8:00 AM ACCOUNTING METHODS ANALYST XR CHEST 1 VIEW IP Routine 10/26/2023 5:09 AM ACCOUNTING METHODS ANALYST EGFR Routine 10/26/2023 2:29 AM ACCOUNTING METHODS ANALYST APTT Routine 10/26/2023 2:29 AM ACCOUNTING METHODS ANALYST PROTIME-INR Routine 10/26/2023 2:29 AM ACCOUNTING METHODS ANALYST CBC WITHOUT DIFFERENTIAL Routine 10/26/2023 2:29 AM ACCOUNTING METHODS ANALYST MAGNESIUM Routine 10/26/2023 2:29 AM ACCOUNTING METHODS ANALYST RENAL FUNCTION PANEL Routine 10/26/2023 2:29 AM ACCOUNTING METHODS ANALYST APTT Timed 10/25/2023 9:15 PM ACCOUNTING METHODS ANALYST POCT GLUCOSE DEVICE Routine 10/25/2023 9:14 PM ACCOUNTING METHODS ANALYST POCT GLUCOSE DEVICE Routine 10/25/2023 4:51 PM ACCOUNTING METHODS ANALYST APTT Timed 10/25/2023 2:48 PM ACCOUNTING METHODS ANALYST POCT GLUCOSE DEVICE Routine 10/25/2023 11:15 AM ACCOUNTING METHODS ANALYST POCT GLUCOSE DEVICE Routine 10/25/2023 9:49 AM ACCOUNTING METHODS ANALYST POCT GLUCOSE DEVICE Routine 10/25/2023 7:36 AM ACCOUNTING METHODS ANALYST XR CHEST 1 VIEW IP Routine 10/25/2023 6:52 AM ACCOUNTING METHODS ANALYST APTT Routine 10/25/2023 6:48 AM ACCOUNTING METHODS ANALYST POCT GLUCOSE DEVICE Routine 10/25/2023 4:23 AM ACCOUNTING METHODS ANALYST EGFR Routine 10/25/2023 12:34 AM ACCOUNTING METHODS ANALYST CBC WITHOUT DIFFERENTIAL Routine 10/25/2023 12:34 AM ACCOUNTING METHODS ANALYST MAGNESIUM Routine 10/25/2023 12:34 AM ACCOUNTING METHODS ANALYST RENAL FUNCTION PANEL Routine 10/25/2023 12:34 AM ACCOUNTING METHODS ANALYST APTT Timed 10/25/2023 12:33 AM ACCOUNTING METHODS ANALYST PROTIME-INR Timed 10/25/2023 12:33 AM ACCOUNTING METHODS ANALYST CONTINUOUS CYCLIC PERITONEAL DIALYSIS (CCPD) Routine 10/25/2023 12:30 AM ACCOUNTING METHODS ANALYST POCT GLUCOSE DEVICE Routine 10/24/2023 9:51 PM ACCOUNTING METHODS ANALYST APTT STAT 10/24/2023 5:15 PM ACCOUNTING METHODS ANALYST POCT GLUCOSE DEVICE Routine 10/24/2023 4:42 PM ACCOUNTING METHODS ANALYST POCT GLUCOSE DEVICE Routine 10/24/2023 12:17 PM ACCOUNTING METHODS ANALYST POCT GLUCOSE DEVICE Routine 10/24/2023 7:44 AM ACCOUNTING METHODS ANALYST XR CHEST 1 VIEW IP Routine 10/24/2023 5:54 AM ACCOUNTING METHODS ANALYST EGFR Routine 10/24/2023 1:03 AM ACCOUNTING METHODS ANALYST PROTIME-INR Routine 10/24/2023 1:03 AM ACCOUNTING METHODS ANALYST CBC WITHOUT DIFFERENTIAL Routine 10/24/2023 1:03 AM ACCOUNTING METHODS ANALYST MAGNESIUM Routine 10/24/2023 1:03 AM ACCOUNTING METHODS ANALYST RENAL FUNCTION PANEL Routine 10/24/2023 1:03 AM ACCOUNTING METHODS ANALYST CONTINUOUS CYCLIC PERITONEAL DIALYSIS (CCPD) Routine 10/24/2023 12:30 AM ACCOUNTING METHODS ANALYST POCT GLUCOSE DEVICE Routine 10/23/2023 11:14 PM ACCOUNTING METHODS ANALYST POCT GLUCOSE DEVICE Routine 10/23/2023 10:43 PM ACCOUNTING METHODS ANALYST PEP THERAPY Routine 10/23/2023 6:00 PM ACCOUNTING METHODS ANALYST POCT GLUCOSE DEVICE Routine 10/23/2023 5:12 PM ACCOUNTING METHODS ANALYST PEP THERAPY Routine 10/23/2023 1:00 PM ACCOUNTING METHODS ANALYST POCT GLUCOSE DEVICE Routine 10/23/2023 12:08 PM ACCOUNTING METHODS ANALYST PEP THERAPY Routine 10/23/2023 8:00 AM ACCOUNTING METHODS ANALYST POCT GLUCOSE DEVICE Routine 10/23/2023 7:54 AM ACCOUNTING METHODS ANALYST XR CHEST 1 VIEW IP Routine 10/23/2023 6:24 AM ACCOUNTING METHODS ANALYST EGFR Routine 10/23/2023 1:53 AM ACCOUNTING METHODS ANALYST PROTIME-INR Routine 10/23/2023 1:53 AM ACCOUNTING METHODS ANALYST CBC WITHOUT DIFFERENTIAL Routine 10/23/2023 1:53 AM ACCOUNTING METHODS ANALYST MAGNESIUM Routine 10/23/2023 1:53 AM ACCOUNTING METHODS ANALYST RENAL FUNCTION PANEL Routine 10/23/2023 1:53 AM ACCOUNTING METHODS ANALYST CONTINUOUS CYCLIC PERITONEAL DIALYSIS (CCPD) Routine 10/23/2023 12:30 AM ACCOUNTING METHODS ANALYST POCT GLUCOSE DEVICE Routine 10/22/2023 11:55 PM ACCOUNTING METHODS ANALYST PEP THERAPY Routine 10/22/2023 10:00 PM ACCOUNTING METHODS ANALYST POCT GLUCOSE DEVICE Routine 10/22/2023 9:12 PM ACCOUNTING METHODS ANALYST PEP THERAPY Routine 10/22/2023 6:00 PM ACCOUNTING METHODS ANALYST POCT GLUCOSE DEVICE Routine 10/22/2023 5:22 PM ACCOUNTING METHODS ANALYST PEP THERAPY Routine 10/22/2023 3:07 PM ACCOUNTING METHODS ANALYST PEP THERAPY Routine 10/22/2023 3:07 PM ACCOUNTING METHODS ANALYST PEP THERAPY Routine 10/22/2023 3:07 PM ACCOUNTING METHODS ANALYST PEP THERAPY Routine 10/22/2023 3:07 PM ACCOUNTING METHODS ANALYST POCT GLUCOSE DEVICE Routine 10/22/2023 12:49 PM ACCOUNTING METHODS ANALYST POCT GLUCOSE DEVICE Routine 10/22/2023 8:12 AM ACCOUNTING METHODS ANALYST XR CHEST 1 VIEW IP Routine 10/22/2023 6:38 AM ACCOUNTING METHODS ANALYST EGFR Routine 10/22/2023 12:31 AM ACCOUNTING METHODS ANALYST PROTIME-INR Routine 10/22/2023 12:31 AM ACCOUNTING METHODS ANALYST CBC WITHOUT DIFFERENTIAL Routine 10/22/2023 12:31 AM ACCOUNTING METHODS ANALYST MAGNESIUM Routine 10/22/2023 12:31 AM ACCOUNTING METHODS ANALYST RENAL FUNCTION PANEL Routine 10/22/2023 12:31 AM ACCOUNTING METHODS ANALYST CONTINUOUS CYCLIC PERITONEAL DIALYSIS (CCPD) Routine 10/22/2023 12:30 AM ACCOUNTING METHODS ANALYST POCT GLUCOSE DEVICE Routine 10/21/2023 9:31 PM ACCOUNTING METHODS ANALYST POCT GLUCOSE DEVICE Routine 10/21/2023 5:16 PM ACCOUNTING METHODS ANALYST POCT GLUCOSE DEVICE Routine 10/21/2023 12:29 PM ACCOUNTING METHODS ANALYST POCT GLUCOSE DEVICE Routine 10/21/2023 8:06 AM ACCOUNTING METHODS ANALYST XR CHEST 1 VIEW IP Routine 10/21/2023 6:51 AM ACCOUNTING METHODS ANALYST ECG 12-LEAD Routine 10/21/2023 4:39 AM ACCOUNTING METHODS ANALYST EGFR Routine 10/21/2023 1:40 AM ACCOUNTING METHODS ANALYST PROTIME-INR Routine 10/21/2023 1:40 AM ACCOUNTING METHODS ANALYST CBC WITHOUT DIFFERENTIAL Routine 10/21/2023 1:40 AM ACCOUNTING METHODS ANALYST MAGNESIUM Routine 10/21/2023 1:40 AM ACCOUNTING METHODS ANALYST RENAL FUNCTION PANEL Routine 10/21/2023 1:40 AM ACCOUNTING METHODS ANALYST CONTINUOUS CYCLIC PERITONEAL DIALYSIS (CCPD) Routine 10/21/2023 12:31 AM ACCOUNTING METHODS ANALYST POCT GLUCOSE DEVICE Routine 10/20/2023 9:24 PM ACCOUNTING METHODS ANALYST POCT GLUCOSE DEVICE Routine 10/20/2023 5:24 PM ACCOUNTING METHODS ANALYST CONTINUOUS CYCLIC PERITONEAL DIALYSIS (CCPD) Routine 10/20/2023 3:51 PM ACCOUNTING METHODS ANALYST CRITICAL CARE Routine 10/20/2023 12:45 PM ACCOUNTING METHODS ANALYST 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[place] artery of [place] heart with stable angina pectoris ([facility]) ([facility]) POCT GLUCOSE DEVICE Routine 10/20/2023 11:47 AM ACCOUNTING METHODS ANALYST POCT GLUCOSE DEVICE Routine 10/20/2023 10:09 AM ACCOUNTING METHODS ANALYST POCT GLUCOSE DEVICE Routine 10/20/2023 9:15 AM ACCOUNTING METHODS ANALYST POCT GLUCOSE DEVICE Routine 10/20/2023 7:23 AM ACCOUNTING METHODS ANALYST XR CHEST 1 VIEW IP Routine 10/20/2023 6:37 AM ACCOUNTING METHODS ANALYST POCT GLUCOSE DEVICE Routine 10/20/2023 6:12 AM ACCOUNTING METHODS ANALYST POCT GLUCOSE DEVICE Routine 10/20/2023 3:57 AM ACCOUNTING METHODS ANALYST OXYHEMOGLOBIN, CENTRAL VENOUS Timed 10/20/2023 3:22 AM ACCOUNTING METHODS ANALYST APTT STAT 10/20/2023 3:22 AM ACCOUNTING METHODS ANALYST POCT GLUCOSE DEVICE Routine 10/20/2023 3:21 AM ACCOUNTING METHODS ANALYST POCT GLUCOSE DEVICE Routine 10/20/2023 2:10 AM ACCOUNTING METHODS ANALYST POCT GLUCOSE DEVICE Routine 10/20/2023 12:57 AM ACCOUNTING METHODS ANALYST OXYHEMOGLOBIN, CENTRAL VENOUS Routine 10/20/2023 12:21 AM ACCOUNTING METHODS ANALYST EGFR Routine 10/20/2023 12:21 AM ACCOUNTING METHODS ANALYST CALCIUM, IONIZED Routine 10/20/2023 12:21 AM ACCOUNTING METHODS ANALYST PROTIME-INR Routine 10/20/2023 12:21 AM ACCOUNTING METHODS ANALYST CBC WITHOUT DIFFERENTIAL Routine 10/20/2023 12:21 AM ACCOUNTING METHODS ANALYST MAGNESIUM Routine 10/20/2023 12:21 AM ACCOUNTING METHODS ANALYST RENAL FUNCTION PANEL Routine 10/20/2023 12:21 AM ACCOUNTING METHODS ANALYST POCT GLUCOSE DEVICE Routine 10/20/2023 12:20 AM ACCOUNTING METHODS ANALYST POCT GLUCOSE DEVICE Routine 10/19/2023 11:03 PM ACCOUNTING METHODS ANALYST POCT GLUCOSE DEVICE Routine 10/19/2023 10:01 PM ACCOUNTING METHODS ANALYST APTT STAT 10/19/2023 9:47 PM ACCOUNTING METHODS ANALYST POCT GLUCOSE DEVICE Routine 10/19/2023 9:15 PM ACCOUNTING METHODS ANALYST POCT GLUCOSE DEVICE Routine 10/19/2023 8:12 PM ACCOUNTING METHODS ANALYST POCT GLUCOSE DEVICE Routine 10/19/2023 6:13 PM ACCOUNTING METHODS ANALYST POCT GLUCOSE DEVICE Routine 10/19/2023 5:24 PM ACCOUNTING METHODS ANALYST XR CHEST 1 VIEW ED Urgent/IP Urgent 10/19/2023 4:29 PM ACCOUNTING METHODS ANALYST POCT GLUCOSE DEVICE Routine 10/19/2023 4:25 PM ACCOUNTING METHODS ANALYST ECG 12-LEAD STAT 10/19/2023 3:21 PM ACCOUNTING METHODS ANALYST XR KUB IP Routine 10/19/2023 2:49 PM ACCOUNTING METHODS ANALYST APTT STAT 10/19/2023 2:44 PM ACCOUNTING METHODS ANALYST LIPASE Routine 10/19/2023 2:44 PM ACCOUNTING METHODS ANALYST AMYLASE Routine 10/19/2023 2:44 PM ACCOUNTING METHODS ANALYST HEPATIC FUNCTION PANEL Routine 10/19/2023 2:44 PM ACCOUNTING METHODS ANALYST POCT GLUCOSE DEVICE Routine 10/19/2023 2:40 PM ACCOUNTING METHODS ANALYST POCT GLUCOSE DEVICE Routine 10/19/2023 12:25 PM ACCOUNTING METHODS ANALYST POCT GLUCOSE DEVICE Routine 10/19/2023 11:12 AM ACCOUNTING METHODS ANALYST POCT GLUCOSE DEVICE Routine 10/19/2023 10:54 AM ACCOUNTING METHODS ANALYST POCT GLUCOSE DEVICE Routine 10/19/2023 9:04 AM ACCOUNTING METHODS ANALYST OXYHEMOGLOBIN, CENTRAL VENOUS STAT 10/19/2023 8:58 AM ACCOUNTING METHODS ANALYST APTT STAT 10/19/2023 8:58 AM ACCOUNTING METHODS ANALYST POCT GLUCOSE DEVICE Routine 10/19/2023 7:19 AM ACCOUNTING METHODS ANALYST OXYHEMOGLOBIN, CENTRAL VENOUS STAT 10/19/2023 7:09 AM ACCOUNTING METHODS ANALYST LACTATE STAT 10/19/2023 7:09 AM ACCOUNTING METHODS ANALYST CRITICAL CARE Routine 10/19/2023 6:57 AM ACCOUNTING METHODS ANALYST CAD in [place] artery POCT GLUCOSE DEVICE Routine 10/19/2023 6:57 AM ACCOUNTING METHODS ANALYST XR CHEST 1 VIEW IP Routine 10/19/2023 6:27 AM ACCOUNTING METHODS ANALYST POCT GLUCOSE DEVICE Routine 10/19/2023 6:06 AM ACCOUNTING METHODS ANALYST POCT GLUCOSE DEVICE Routine 10/19/2023 5:10 AM ACCOUNTING METHODS ANALYST APTT STAT 10/19/2023 4:14 AM ACCOUNTING METHODS ANALYST POCT GLUCOSE DEVICE Routine 10/19/2023 4:03 AM ACCOUNTING METHODS ANALYST POCT GLUCOSE DEVICE Routine 10/19/2023 2:56 AM ACCOUNTING METHODS ANALYST OXYHEMOGLOBIN, CENTRAL VENOUS Routine 10/19/2023 2:11 AM ACCOUNTING METHODS ANALYST EGFR Routine 10/19/2023 2:11 AM ACCOUNTING METHODS ANALYST CALCIUM, IONIZED Routine 10/19/2023 2:11 AM ACCOUNTING METHODS ANALYST PROTIME-INR Routine 10/19/2023 2:11 AM ACCOUNTING METHODS ANALYST CBC WITHOUT DIFFERENTIAL Routine 10/19/2023 2:11 AM ACCOUNTING METHODS ANALYST MAGNESIUM Routine 10/19/2023 2:11 AM ACCOUNTING METHODS ANALYST BLOOD GAS, ARTERIAL Routine 10/19/2023 2:11 AM ACCOUNTING METHODS ANALYST RENAL FUNCTION PANEL Routine 10/19/2023 2:11 AM ACCOUNTING METHODS ANALYST POCT GLUCOSE DEVICE Routine 10/19/2023 2:07 AM ACCOUNTING METHODS ANALYST CONTINUOUS CYCLIC PERITONEAL DIALYSIS (CCPD) Routine 10/19/2023 12:31 AM ACCOUNTING METHODS ANALYST POCT GLUCOSE DEVICE Routine 10/19/2023 12:01 AM ACCOUNTING METHODS ANALYST POCT GLUCOSE DEVICE Routine 10/18/2023 11:03 PM ACCOUNTING METHODS ANALYST POCT GLUCOSE DEVICE Routine 10/18/2023 10:11 PM ACCOUNTING METHODS ANALYST APTT STAT 10/18/2023 9:21 PM ACCOUNTING METHODS ANALYST POCT GLUCOSE DEVICE Routine 10/18/2023 9:19 PM ACCOUNTING METHODS ANALYST POCT GLUCOSE DEVICE Routine 10/18/2023 8:37 PM ACCOUNTING METHODS ANALYST BLOOD GAS, ARTERIAL STAT 10/18/2023 8:34 PM ACCOUNTING METHODS ANALYST CRITICAL CARE Routine 10/18/2023 6:49 PM ACCOUNTING METHODS ANALYST CAD in [place] artery POCT GLUCOSE DEVICE Routine 10/18/2023 6:38 PM ACCOUNTING METHODS ANALYST POCT GLUCOSE DEVICE Routine 10/18/2023 5:45 PM ACCOUNTING METHODS ANALYST XR KUB IP Routine 10/18/2023 5:42 PM ACCOUNTING METHODS ANALYST POCT GLUCOSE DEVICE Routine 10/18/2023 4:47 PM ACCOUNTING METHODS ANALYST APTT Timed 10/18/2023 2:55 PM ACCOUNTING METHODS ANALYST POCT GLUCOSE DEVICE Routine 10/18/2023 2:52 PM ACCOUNTING METHODS ANALYST POCT GLUCOSE DEVICE Routine 10/18/2023 1:53 PM ACCOUNTING METHODS ANALYST POCT GLUCOSE DEVICE Routine 10/18/2023 12:48 PM ACCOUNTING METHODS ANALYST POCT GLUCOSE DEVICE Routine 10/18/2023 12:00 PM ACCOUNTING METHODS ANALYST POCT GLUCOSE DEVICE Routine 10/18/2023 10:57 AM ACCOUNTING METHODS ANALYST POCT GLUCOSE DEVICE Routine 10/18/2023 9:52 AM ACCOUNTING METHODS ANALYST POCT GLUCOSE DEVICE Routine 10/18/2023 8:46 AM ACCOUNTING METHODS ANALYST POCT GLUCOSE DEVICE Routine 10/18/2023 7:58 AM ACCOUNTING METHODS ANALYST CRITICAL CARE Routine 10/18/2023 7:27 AM ACCOUNTING METHODS ANALYST CAD in [place] artery POCT GLUCOSE DEVICE Routine 10/18/2023 7:02 AM ACCOUNTING METHODS ANALYST POCT GLUCOSE DEVICE Routine 10/18/2023 6:04 AM ACCOUNTING METHODS ANALYST XR CHEST 1 VIEW IP Routine 10/18/2023 5:38 AM ACCOUNTING METHODS ANALYST POCT GLUCOSE DEVICE Routine 10/18/2023 5:04 AM ACCOUNTING METHODS ANALYST POCT GLUCOSE DEVICE Routine 10/18/2023 4:03 AM ACCOUNTING METHODS ANALYST POCT GLUCOSE DEVICE Routine 10/18/2023 3:04 AM ACCOUNTING METHODS ANALYST POCT GLUCOSE DEVICE Routine 10/18/2023 1:57 AM ACCOUNTING METHODS ANALYST EGFR Routine 10/18/2023 1:54 AM ACCOUNTING METHODS ANALYST CALCIUM, IONIZED Routine 10/18/2023 1:54 AM ACCOUNTING METHODS ANALYST PROTIME-INR Routine 10/18/2023 1:54 AM ACCOUNTING METHODS ANALYST FIBRINOGEN Routine 10/18/2023 1:54 AM ACCOUNTING METHODS ANALYST CBC WITHOUT DIFFERENTIAL Routine 10/18/2023 1:54 AM ACCOUNTING METHODS ANALYST MAGNESIUM Routine 10/18/2023 1:54 AM ACCOUNTING METHODS ANALYST BLOOD GAS, ARTERIAL STAT 10/18/2023 1:54 AM ACCOUNTING METHODS ANALYST RENAL FUNCTION PANEL Routine 10/18/2023 1:54 AM ACCOUNTING METHODS ANALYST POCT GLUCOSE DEVICE Routine 10/18/2023 12:57 AM ACCOUNTING METHODS ANALYST CONTINUOUS CYCLIC PERITONEAL DIALYSIS (CCPD) Routine 10/18/2023 12:31 AM ACCOUNTING METHODS ANALYST POCT GLUCOSE DEVICE Routine 10/18/2023 12:04 AM ACCOUNTING METHODS ANALYST POCT GLUCOSE DEVICE Routine 10/17/2023 11:00 PM ACCOUNTING METHODS ANALYST BLOOD GAS, ARTERIAL STAT 10/17/2023 10:56 PM ACCOUNTING METHODS ANALYST LACTATE STAT 10/17/2023 10:55 PM ACCOUNTING METHODS ANALYST DIFFERENTIAL AUTO STAT 10/17/2023 10:55 PM ACCOUNTING METHODS ANALYST CALCIUM, IONIZED STAT 10/17/2023 10:55 PM ACCOUNTING METHODS ANALYST CBC WITH AUTO DIFFERENTIAL STAT 10/17/2023 10:55 PM ACCOUNTING METHODS ANALYST POCT GLUCOSE DEVICE Routine 10/17/2023 10:19 PM ACCOUNTING METHODS ANALYST POCT GLUCOSE DEVICE Routine 10/17/2023 9:00 PM ACCOUNTING METHODS ANALYST POCT GLUCOSE DEVICE Routine 10/17/2023 8:07 PM ACCOUNTING METHODS ANALYST POCT GLUCOSE DEVICE Routine 10/17/2023 7:18 PM ACCOUNTING METHODS ANALYST TRANSFUSE RED BLOOD CELLS Timed 10/17/2023 7:13 PM ACCOUNTING METHODS ANALYST CRITICAL CARE Routine 10/17/2023 6:42 PM ACCOUNTING METHODS ANALYST CAD in [place] artery PREPARE RBC STAT 10/17/2023 6:34 PM ACCOUNTING METHODS ANALYST POTASSIUM LEVEL STAT 10/17/2023 6:14 PM ACCOUNTING METHODS ANALYST APTT STAT 10/17/2023 6:12 PM ACCOUNTING METHODS ANALYST PROTIME-INR STAT 10/17/2023 6:12 PM ACCOUNTING METHODS ANALYST FIBRINOGEN STAT 10/17/2023 6:12 PM ACCOUNTING METHODS ANALYST CBC WITHOUT DIFFERENTIAL STAT 10/17/2023 6:12 PM ACCOUNTING METHODS ANALYST BLOOD GAS, ARTERIAL STAT 10/17/2023 6:12 PM ACCOUNTING METHODS ANALYST POCT GLUCOSE DEVICE Routine 10/17/2023 6:11 PM ACCOUNTING METHODS ANALYST TRANSFUSE PLASMA Timed 10/17/2023 5:25 PM ACCOUNTING METHODS ANALYST PREPARE PLASMA STAT 10/17/2023 5:09 PM ACCOUNTING METHODS ANALYST POCT GLUCOSE DEVICE Routine 10/17/2023 4:50 PM ACCOUNTING METHODS ANALYST APTT STAT 10/17/2023 4:32 PM ACCOUNTING METHODS ANALYST PROTIME-INR STAT 10/17/2023 4:32 PM ACCOUNTING METHODS ANALYST FIBRINOGEN STAT 10/17/2023 4:32 PM ACCOUNTING METHODS ANALYST CBC WITHOUT DIFFERENTIAL Routine 10/17/2023 4:32 PM ACCOUNTING METHODS ANALYST BLOOD GAS, ARTERIAL STAT 10/17/2023 4:32 PM ACCOUNTING METHODS ANALYST POCT GLUCOSE DEVICE Routine 10/17/2023 3:51 PM ACCOUNTING METHODS ANALYST TRANSFUSE PLASMA Timed 10/17/2023 3:43 PM ACCOUNTING METHODS ANALYST TRANSFUSE RED BLOOD CELLS Timed 10/17/2023 3:38 PM ACCOUNTING METHODS ANALYST PREPARE PLASMA STAT 10/17/2023 3:32 PM ACCOUNTING METHODS ANALYST PREPARE RBC STAT 10/17/2023 3:32 PM ACCOUNTING METHODS ANALYST POCT GLUCOSE DEVICE Routine 10/17/2023 2:34 PM ACCOUNTING METHODS ANALYST XR CHEST 1 VIEW ED Urgent/IP Urgent 10/17/2023 1:49 PM ACCOUNTING METHODS ANALYST CRITICAL CARE Routine 10/17/2023 1:44 PM ACCOUNTING METHODS ANALYST LACTATE STAT 10/17/2023 1:27 PM ACCOUNTING METHODS ANALYST EGFR STAT 10/17/2023 1:27 PM ACCOUNTING METHODS ANALYST CALCIUM, IONIZED STAT 10/17/2023 1:27 PM ACCOUNTING METHODS ANALYST APTT STAT 10/17/2023 1:27 PM ACCOUNTING METHODS ANALYST PROTIME-INR STAT 10/17/2023 1:27 PM ACCOUNTING METHODS ANALYST FIBRINOGEN STAT 10/17/2023 1:27 PM ACCOUNTING METHODS ANALYST CBC WITHOUT DIFFERENTIAL STAT 10/17/2023 1:27 PM ACCOUNTING METHODS ANALYST PHOSPHORUS STAT 10/17/2023 1:27 PM ACCOUNTING METHODS ANALYST MAGNESIUM STAT 10/17/2023 1:27 PM ACCOUNTING METHODS ANALYST BLOOD GAS, ARTERIAL STAT 10/17/2023 1:27 PM ACCOUNTING METHODS ANALYST BASIC METABOLIC PANEL STAT 10/17/2023 1:27 PM ACCOUNTING METHODS ANALYST POCT GLUCOSE DEVICE Routine 10/17/2023 1:25 PM ACCOUNTING METHODS ANALYST POCT ACTIVATED CLOTTING TIME, HIGH RANGE Routine 10/17/2023 12:26 PM ACCOUNTING METHODS ANALYST POC BLOOD GAS AND CHEMISTRIES, ARTERIAL Routine 10/17/2023 12:26 PM ACCOUNTING METHODS ANALYST TRANSFUSE PLATELETS Timed 10/17/2023 12:24 PM ACCOUNTING METHODS ANALYST PREPARE RBC STAT 10/17/2023 12:11 PM ACCOUNTING METHODS ANALYST TRANSFUSE RED BLOOD CELLS Timed 10/17/2023 12:09 PM ACCOUNTING METHODS ANALYST TRANSFUSE CRYOPRECIPITATE (POOLED UNITS) Timed 10/17/2023 12:05 PM ACCOUNTING METHODS ANALYST TRANSFUSE CRYOPRECIPITATE (POOLED UNITS) Timed 10/17/2023 12:04 PM ACCOUNTING METHODS ANALYST TRANSFUSE PLASMA Timed 10/17/2023 12:03 PM ACCOUNTING METHODS ANALYST TRANSFUSE PLASMA Timed 10/17/2023 12:03 PM ACCOUNTING METHODS ANALYST POC BLOOD GAS AND CHEMISTRIES, ARTERIAL Routine 10/17/2023 11:51 AM ACCOUNTING METHODS ANALYST POCT ACTIVATED CLOTTING TIME, HIGH RANGE Routine 10/17/2023 11:50 AM ACCOUNTING METHODS ANALYST POCT ACTIVATED CLOTTING TIME, HIGH RANGE Routine 10/17/2023 11:22 AM ACCOUNTING METHODS ANALYST POC BLOOD GAS AND CHEMISTRIES, ARTERIAL Routine 10/17/2023 11:20 AM ACCOUNTING METHODS ANALYST POCT ACTIVATED CLOTTING TIME, HIGH RANGE Routine 10/17/2023 11:05 AM ACCOUNTING METHODS ANALYST POCT ACTIVATED CLOTTING TIME, HIGH RANGE Routine 10/17/2023 10:53 AM ACCOUNTING METHODS ANALYST POCT ACTIVATED CLOTTING TIME, HIGH RANGE Routine 10/17/2023 10:38 AM ACCOUNTING METHODS ANALYST POC BLOOD GAS AND CHEMISTRIES, ARTERIAL Routine 10/17/2023 10:38 AM ACCOUNTING METHODS ANALYST POCT ACTIVATED CLOTTING TIME, HIGH RANGE Routine 10/17/2023 10:24 AM ACCOUNTING METHODS ANALYST POC BLOOD GAS AND CHEMISTRIES, VENOUS Routine 10/17/2023 10:21 AM ACCOUNTING METHODS ANALYST POCT ACTIVATED CLOTTING TIME, HIGH RANGE Routine 10/17/2023 10:12 AM ACCOUNTING METHODS ANALYST POC BLOOD GAS AND CHEMISTRIES, ARTERIAL Routine 10/17/2023 10:11 AM ACCOUNTING METHODS ANALYST POC BLOOD GAS AND CHEMISTRIES, ARTERIAL Routine 10/17/2023 9:47 AM ACCOUNTING METHODS ANALYST POCT ACTIVATED CLOTTING TIME, HIGH RANGE Routine 10/17/2023 9:44 AM ACCOUNTING METHODS ANALYST PREPARE PLATELETS STAT 10/17/2023 9:12 AM ACCOUNTING METHODS ANALYST PREPARE PLASMA STAT 10/17/2023 9:12 AM ACCOUNTING METHODS ANALYST PREPARE CRYOPRECIPITATE (POOLED UNITS) STAT 10/17/2023 9:12 AM ACCOUNTING METHODS ANALYST POCT ACTIVATED CLOTTING TIME, HIGH RANGE Routine 10/17/2023 8:19 AM ACCOUNTING METHODS ANALYST REPLACEMENT AORTIC VALVE 10/17/2023 8:03 AM ACCOUNTING METHODS ANALYST Aortic valve stenosis, etiology of cardiac valve disease unspecified Coronary arteriosclerosis in [place] artery CORONARY ARTERY BYPASS GRAFT 10/17/2023 8:03 AM ACCOUNTING METHODS ANALYST Aortic valve stenosis, etiology of cardiac valve disease unspecified Coronary arteriosclerosis in [place] artery POCT GLUCOSE DEVICE Routine 10/17/2023 7:47 AM ACCOUNTING METHODS ANALYST POCT GLUCOSE DEVICE Routine 10/17/2023 5:50 AM ACCOUNTING METHODS ANALYST US CAROTIDS DUPLEX BILATERAL IP Routine 10/17/2023 5:10 AM ACCOUNTING METHODS ANALYST POCT GLUCOSE DEVICE Routine 10/17/2023 2:29 AM ACCOUNTING METHODS ANALYST POCT GLUCOSE DEVICE Routine 10/17/2023 12:51 AM ACCOUNTING METHODS ANALYST CONTINUOUS CYCLIC PERITONEAL DIALYSIS (CCPD) Routine 10/17/2023 12:31 AM ACCOUNTING METHODS ANALYST DIFFERENTIAL AUTO Routine 10/17/2023 12:29 AM ACCOUNTING METHODS ANALYST CBC WITH AUTO DIFFERENTIAL Routine 10/17/2023 12:29 AM ACCOUNTING METHODS ANALYST APTT Routine 10/17/2023 12:29 AM ACCOUNTING METHODS ANALYST TYPE AND SCREEN STAT 10/16/2023 7:51 PM ACCOUNTING METHODS ANALYST POCT GLUCOSE DEVICE Routine 10/16/2023 7:49 PM ACCOUNTING METHODS ANALYST POCT GLUCOSE DEVICE Routine 10/16/2023 5:35 PM ACCOUNTING METHODS ANALYST TRANSTHORACIC ECHO (TTE) COMPLETE W DOPPLER/CF W CONTRAST Routine 10/16/2023 4:47 PM ACCOUNTING METHODS ANALYST APTT Routine 10/16/2023 3:50 PM ACCOUNTING METHODS ANALYST LIPID PANEL Routine 10/16/2023 3:44 PM ACCOUNTING METHODS ANALYST CONTINUOUS CYCLIC PERITONEAL DIALYSIS (CCPD) Routine 10/16/2023 3:33 PM ACCOUNTING METHODS ANALYST HEMOGLOBIN A1C Routine 10/16/2023 3:27 PM ACCOUNTING METHODS ANALYST XR CHEST PA LATERAL 2 VIEWS ED Urgent/IP Urgent 10/16/2023 3:12 PM ACCOUNTING METHODS ANALYST ECG 12-LEAD Routine 10/16/2023 2:17 PM ACCOUNTING METHODS ANALYST PREPARE RBC STAT 10/16/2023 2:04 PM ACCOUNTING METHODS ANALYST POCT GLUCOSE DEVICE Routine 10/16/2023 12:22 PM ACCOUNTING METHODS ANALYST POCT GLUCOSE DEVICE Routine 10/16/2023 8:11 AM ACCOUNTING METHODS ANALYST POCT GLUCOSE DEVICE Routine 10/16/2023 4:48 AM ACCOUNTING METHODS ANALYST POCT GLUCOSE DEVICE Routine 10/16/2023 12:37 AM ACCOUNTING METHODS ANALYST DIFFERENTIAL AUTO Routine 10/16/2023 12:31 AM ACCOUNTING METHODS ANALYST CBC WITH AUTO DIFFERENTIAL Routine 10/16/2023 12:31 AM ACCOUNTING METHODS ANALYST APTT Routine 10/16/2023 12:31 AM ACCOUNTING METHODS ANALYST B CHECK SAMPLE STAT 10/16/2023 12:27 AM ACCOUNTING METHODS ANALYST POCT GLUCOSE DEVICE Routine 10/15/2023 11:20 PM ACCOUNTING METHODS ANALYST POCT GLUCOSE DEVICE Routine 10/15/2023 11:01 PM ACCOUNTING METHODS ANALYST POCT GLUCOSE DEVICE Routine 10/15/2023 10:45 PM ACCOUNTING METHODS ANALYST POCT GLUCOSE DEVICE Routine 10/15/2023 10:26 PM ACCOUNTING METHODS ANALYST POCT GLUCOSE DEVICE Routine 10/15/2023 8:12 PM ACCOUNTING METHODS ANALYST POCT GLUCOSE DEVICE Routine 10/15/2023 5:10 PM ACCOUNTING METHODS ANALYST POCT GLUCOSE DEVICE Routine 10/15/2023 12:13 PM ACCOUNTING METHODS ANALYST APTT Routine 10/15/2023 11:25 AM ACCOUNTING METHODS ANALYST CT CHEST WO CONTRAST IP Routine 10/15/2023 11:00 AM ACCOUNTING METHODS ANALYST POCT GLUCOSE DEVICE Routine 10/15/2023 7:56 AM ACCOUNTING METHODS ANALYST POCT GLUCOSE DEVICE Routine 10/15/2023 5:34 AM ACCOUNTING METHODS ANALYST POCT GLUCOSE DEVICE Routine 10/15/2023 4:35 AM ACCOUNTING METHODS ANALYST APTT STAT 10/15/2023 4:27 AM ACCOUNTING METHODS ANALYST POCT GLUCOSE DEVICE Routine 10/15/2023 1:30 AM ACCOUNTING METHODS ANALYST EGFR Routine 10/15/2023 1:06 AM ACCOUNTING METHODS ANALYST DIFFERENTIAL AUTO Routine 10/15/2023 1:06 AM ACCOUNTING METHODS ANALYST IRON PROFILE W/ IBC Routine 10/15/2023 1:06 AM ACCOUNTING METHODS ANALYST CBC WITH AUTO DIFFERENTIAL Routine 10/15/2023 1:06 AM ACCOUNTING METHODS ANALYST APTT Routine 10/15/2023 1:06 AM ACCOUNTING METHODS ANALYST FERRITIN Routine 10/15/2023 1:06 AM ACCOUNTING METHODS ANALYST RENAL FUNCTION PANEL Routine 10/15/2023 1:06 AM ACCOUNTING METHODS ANALYST CONTINUOUS CYCLIC PERITONEAL DIALYSIS (CCPD) Routine 10/15/2023 12:31 AM ACCOUNTING METHODS ANALYST APTT Timed 10/14/2023 8:41 PM ACCOUNTING METHODS ANALYST POCT GLUCOSE DEVICE Routine 10/14/2023 8:24 PM ACCOUNTING METHODS ANALYST POCT GLUCOSE DEVICE Routine 10/14/2023 5:28 PM ACCOUNTING METHODS ANALYST CONTINUOUS CYCLIC PERITONEAL DIALYSIS (CCPD) Routine 10/14/2023 3:44 PM ACCOUNTING METHODS ANALYST APTT Timed 10/14/2023 2:39 PM ACCOUNTING METHODS ANALYST POCT GLUCOSE DEVICE Routine 10/14/2023 12:15 PM ACCOUNTING METHODS ANALYST POCT GLUCOSE DEVICE Routine 10/14/2023 11:06 AM ACCOUNTING METHODS ANALYST POCT GLUCOSE DEVICE Routine 10/14/2023 8:34 AM ACCOUNTING METHODS ANALYST POCT GLUCOSE DEVICE Routine 10/14/2023 5:56 AM ACCOUNTING METHODS ANALYST EGFR STAT 10/14/2023 5:53 AM ACCOUNTING METHODS ANALYST APTT STAT 10/14/2023 5:53 AM ACCOUNTING METHODS ANALYST BASIC METABOLIC PANEL STAT 10/14/2023 5:53 AM ACCOUNTING METHODS ANALYST POCT GLUCOSE DEVICE Routine 10/14/2023 3:58 AM ACCOUNTING METHODS ANALYST POCT GLUCOSE DEVICE Routine 10/14/2023 3:04 AM ACCOUNTING METHODS ANALYST POCT GLUCOSE DEVICE Routine 10/14/2023 2:05 AM ACCOUNTING METHODS ANALYST EGFR STAT 10/14/2023 1:04 AM ACCOUNTING METHODS ANALYST DIFFERENTIAL AUTO STAT 10/14/2023 1:04 AM ACCOUNTING METHODS ANALYST CBC WITH AUTO DIFFERENTIAL STAT 10/14/2023 1:04 AM ACCOUNTING METHODS ANALYST APTT STAT 10/14/2023 1:04 AM ACCOUNTING METHODS ANALYST PROTIME-INR STAT 10/14/2023 1:04 AM ACCOUNTING METHODS ANALYST COMPREHENSIVE METABOLIC PANEL STAT 10/14/2023 1:04 AM ACCOUNTING METHODS ANALYST POCT GLUCOSE DEVICE Routine 10/13/2023 11:25 PM ACCOUNTING METHODS ANALYST documented in this encounter Results * (ABNORMAL) [...] POCT ORDERABLES - APRIL CE Final Result [facility] [address] [place] [address] * (ABNORMAL) Protime-INR (11/03/2023 11:43 AM CDT) PT 21.9(H) 10.3 - 13.7 sec INR 1.92(H) 0.90 - 1.20 [facility] Comment: Interpretive data Oral anticoagulant therapeutic ranges: Venous thromboembolism prophylaxis or treatment: 2.0-3.0 CARDIOLOGY Standard range: 2.0-3.0 High-intensity range: 2.5-3.5 Refer to indication-specific guidelines for appropriate target ranges for prosthetic heart valve replacement. Current interpretive data was last revised on 2019. Blood 11/03/2023 11:4 3 AM CDT 11/03/2023 12:58 PM CDT us [facility] BLOOD ORDERABLES Final R esult Performing Organization Address [facility] Co de Phone Number [facility]ESSAN[facility] [address] [facility] [place] [address] * (ABNORMAL) aPTT (11/03/2023 11:43 [...] BLOOD ORDERABLES Final Result Performing Organization Address [facility] Co de Phone Number ALESSANDR[facility] [address] Department [place], [place] [id number] * (ABNORMAL) POCT glucose (11/03/2023 11:38 AM CDT) Glucose, POC 259(H) 70 - 140 mg/dL Comment: For Glucose values <35 mg/dl when Hematocrit is >60 mg/dl,the test may not accurately detect significant hypoglycemia,and testing in the Laboratory should be considered if clinically indicated. Blood 11/03/2023 11:3 8 AM CDT 11/03/2023 11:38 AM CDT Jaquelien Valero MD LAB POCT ORDERABLES - APRIL CE Final Result Performing Organization Address [facility] Co de Phone Number [facility] [address] [facility] [employer] [place], [place] [id number] * (ABNORMAL) POCT glucose (11/03/2023 8:05 AM [...] APRIL CE Final Result [facility] [address] [place] [address] * eGFR (11/03/2023 4:41 AM CDT) eGFR [...] CDT 11/03/2023 4:41 AM CDT Byron Olvera ANIMAL HUSBANDRY TECHNICIAN LAB BLOOD ORDERABLES Fi nal Result Performing Organization Address [facility] Co de Phone Number [facility] [address] [facility] [place] [address] * (ABNORMAL) aPTT (11/03/2023 4:41 AM CDT) [...] BLOOD ORDERABLES Final Result Performing Organization Address [facility] Co de Phone Number [facility] [address] [facility] [place] [address] * (ABNORMAL) Protime-INR (11/03/2023 4:41 AM CDT) PT 19.8(H) 10.3 - 13.7 sec INR 1.74(H) 0.90 - 1.20 [facility] Comment: Interpretive data Oral anticoagulant [...] ORDERABLES Fi nal Result Performing Organization Address [facility] Co de Phone Number [facility] [address] [facility] [place] [address] * Magnesium (11/03/2023 4:41 AM CDT) Magnesium 2.4 1.4 - 2.5 mg/dL Blood 11/03/2023 4:41 AM CDT 11/03/2023 4:41 AM CDT Byron Olvera ANIMAL HUSBANDRY TECHNICIAN LAB BLOOD ORDERABLES nal Result [facility] [address] Department [place] [address] * (ABNORMAL) Renal function panel (11/03/2023 4:41 AM CDT) Pathologist [facility] Sodium 132(L) 135 - 145 mmol/L Potassium, pl 3.7 3.3 - 4.9 mmol/L [facility] Chloride 92(L) 97 - 110 mmol/L [facility] CO2 27 22 - 32 mmol/L [facility] Anion gap 13 2 - 15 mmol/L [facility] BUN 79(H) 6 - 25 mg/dL [facility] Creatinine 8.23(H) 0.80 - 1.30 mg/dL [facility] Glucose 252(H) 70 - 199 mg/dL [facility] Comment: Interpretive Data Fasting glucose [...] 2022. Calcium 8.9 8.5 - 10.3 mg/dL [facility] Phosphorus, pl 4.2 2.3 - 4.5 mg/dL [facility] Albumin 2.9(L) 3.5 - 5.0 g/dL [facility] Blood 11/03/2023 4:41 AM CDT 11/03/2023 4:41 AM CDT Byron Olvera NP LAB BLOOD ORDERABLES Fi nal Result Performing Organization Address [facility] Co de Phone Number [facility] [address] [place] [address] * (ABNORMAL) CBC without differential (11/03/2023 4:41 AM CDT) [facility] WBC 4.8 3.8 - 9.9 K/cumm Hgb 7.6(L) 13.0 - 17.5 g/dL [facility] Hct 24.4(L) 38.9 - 50.3 % [facility] Plt 389 150 - 400 K/cumm [facility] MPV 9.2 9.1 - 12.3 fL [facility] RBC 2.61(L) 4.30 - 5.80 M/cumm [facility] MCV 93.5 81.3 - 96.4 fL [facility] MCH 29.1 27.1 - 33.3 pg [facility] MCHC 31.1(L) 32.3 - 35.7 g/dL [facility] RDW CV 14.6 11.1 - 14.9 % [facility] RDW SD 50.1(H) 35.7 - 48.1 fL [facility] NRBC abs 0.00 0.00 - 0.01 K/cumm [facility] Blood 11/03/2023 4:41 AM CDT 11/03/2023 4:41 AM CDT Byron Olvera NP LAB BLOOD ORDERABLES Fi nal Result Performing Organization Address City/[facility]/ZIP Co de Phone Number [facility] [address] Department [employer] [place], [place] [phone] * aPTT (11/02/2023 8:38 PM CDT) Pathologist [facility] aPTT 38 28 - 38 sec Comment: Interpretive Data Heparin therapeutic range: 66.0 - 100.0 seconds. Range based on correlation with therapeutic heparin activity range of 0.3 - 0.7 Units/mL. Current interpretive data was last revised on 2023. Blood 11/02/2023 8:38 PM CDT 11/02/2023 8:38 PM CDT Nona GRACE LAB BLOOD ORDERABLES Fin al Result Performing Organization Address [facility] Co de Phone Number [facility] [address] [place] [address] * (ABNORMAL) POCT glucose (11/02/2023 8:22 PM [...] CE Final Result Performing Organization Address [facility] de Phone Number [facility] [address] Department [place] [employer] [place] [address] * (ABNORMAL) POCT glucose (11/02/2023 5:22 PM [...] APRIL CE Final Result Performing Organization Address [facility]/ZIP Co de Phone Number [facility] [address] [place] [address] * aPTT (11/02/2023 1:17 PM CDT) aPTT 36 28 - 38 sec Comment: Interpretive Data Heparin therapeutic range: 66.0 - 100.0 seconds. Range based on correlation with therapeutic heparin activity range of 0.3 - 0.7 Units/mL. Current interpretive data was last revised on 2023. Blood 11/02/2023 1:17 PM CDT 11/02/2023 1:33 PM CDT Narrative [facility] - 11/02/2023 1:50 PM CDT Baseline prior to heparin initiation Nona GRACE LAB BLOOD ORDERABLES Fin al Result Performing Organization Address [facility] Co de Phone Number [facility] [address] [place] [address] * (ABNORMAL) POCT glucose (11/02/2023 12:27 PM [...] APRIL CE Final Result Performing Organization Address [facility] Co de Phone Number [facility] [address] Department [employer] [place], [place] [phone] * (ABNORMAL) POCT glucose (11/02/2023 8:15 AM [...] APRIL CE Final Result [facility] [address] [place] [address] * eGFR (11/02/2023 2:16 AM CDT) eGFR [...] CDT 11/02/2023 2:37 AM CDT Byron Olvera ANIMAL HUSBANDRY TECHNICIAN LAB BLOOD ORDERABLES Fi nal Result [facility] [address] [facility] [place] [address] * (ABNORMAL) Protime-INR (11/02/2023 2:16 AM CDT) PT 19.1(H) 10.3 - 13.7 sec INR 1.68(H) 0.90 - 1.20 [facility] Comment: Interpretive data Oral anticoagulant therapeutic ranges: Venous thromboembolism prophylaxis or treatment: 2.0-3.0 CARDIOLOGY Standard range: 2.0-3.0 High-intensity range: 2.5-3.5 Refer to indication-specific guidelines for appropriate target ranges for prosthetic heart valve replacement. Current interpretive data was last revised on 2019. Blood 11/02/2023 2:16 AM CDT 11/02/2023 2:37 AM CDT Byron Olvera ANIMAL HUSBANDRY TECHNICIAN LAB BLOOD ORDERABLES Fi nal Result [facility] [address] [employer] [place], [place] [phone] * Magnesium (11/02/2023 2:16 AM CDT) Pathologist [facility] Magnesium 2.4 1.4 - 2.5 mg/dL Blood 11/02/2023 2:16 AM CDT 11/02/2023 2:37 AM CDT Byron Olvera ANIMAL HUSBANDRY TECHNICIAN LAB BLOOD ORDERABLES Fi nal Result [facility] [address] [facility] [place] [address] * (ABNORMAL) Renal function panel (11/02/2023 2:16 AM CDT) Pathologist [facility] Sodium 128(L) 135 - 145 mmol/L Potassium, pl 3.9 3.3 - 4.9 mmol/L [facility] Chloride 89(L) 97 - 110 mmol/L [facility] CO2 25 22 - 32 mmol/L [facility] Anion gap 14 2 - 15 mmol/L [facility] BUN 86(H) 6 - 25 mg/dL [facility] Creatinine 8.74(H) 0.80 - 1.30 mg/dL [facility] Glucose 353(H) 70 - 199 mg/dL [facility] Comment: Interpretive Data Fasting glucose [...] 2022. Calcium 9.3 8.5 - 10.3 mg/dL [facility] Phosphorus, pl 3.7 2.3 - 4.5 mg/dL [facility] Albumin 2.7(L) 3.5 - 5.0 g/dL [facility] Blood 11/02/2023 2:16 AM CDT 11/02/2023 2:37 AM CDT Byron Olvera NP LAB BLOOD ORDERABLES Fi nal Result [facility] [address] [place] [address] * (ABNORMAL) CBC without differential (11/02/2023 2:16 AM CDT) [facility] WBC 5.0 3.8 - 9.9 K/cumm Hgb 7.5(L) 13.0 - 17.5 g/dL [facility] Hct 24.5(L) 38.9 - 50.3 % [facility] Plt 391 150 - 400 K/cumm [facility] MPV 9.3 9.1 - 12.3 fL [facility] RBC 2.60(L) 4.30 - 5.80 M/cumm [facility] MCV 94.2 81.3 - 96.4 fL [facility] MCH 28.8 27.1 - 33.3 pg [facility] MCHC 30.6(L) 32.3 - 35.7 g/dL [facility] RDW CV 14.6 11.1 - 14.9 % [facility] RDW SD 50.4(H) 35.7 - 48.1 fL [facility] NRBC abs 0.00 0.00 - 0.01 K/cumm [facility] Blood 11/02/2023 2:16 AM CDT 11/02/2023 2:37 AM CDT Byron Olvera NP LAB BLOOD ORDERABLES Fi nal Result Performing Organization Address [facility]/ZIP Co de Phone Number [facility] [address] [employer] [place], [place] [phone] * (ABNORMAL) POCT glucose (11/02/2023 2:06 AM [...] APRIL CE Final Result Performing Organization Address City/[facility]/ZIP Co de Phone Number [facility] [address] Department [employer] [place], [place] [phone] * (ABNORMAL) POCT glucose (11/01/2023 8:25 PM [...] CE Final Result Performing Organization Address [facility] de Phone Number [facility] [address] [facility] [place] [address] * (ABNORMAL) POCT glucose (11/01/2023 5:17 PM [...] CE Final Result Performing Organization Address [facility] de Phone Number [facility] [address] [facility] [place] [address] * (ABNORMAL) POCT glucose (11/01/2023 12:01 PM [...] APRIL CE Final Result Performing Organization Address [facility] de Phone Number [facility] [address] [place] [address] * (ABNORMAL) POCT glucose (11/01/2023 8:27 AM CDT) Pathologist [facility] Glucose, POC 246(H) 70 - 140 mg/dL Comment: For Glucose values <35 mg/dl when Hematocrit is >60 mg/dl,the test may not accurately detect significant hypoglycemia,and testing in the Laboratory should be considered if clinically indicated. Blood 11/01/2023 8:27 AM CDT 11/01/2023 8:27 AM CDT us Jaqueline Valero MD LAB POCT ORDERABLES - APRIL CE Final Result [facility] [address] [place] [address] * eGFR (11/01/2023 2:09 AM CDT) [facility] eGFR 6 mL/min/1. 73 m2 Comment: [...] ORDERABLES Fi nal Result Performing Organization Address [facility] Co de Phone Number [facility] [address] [place] [address] * (ABNORMAL) Protime-INR (11/01/2023 2:09 AM CDT) PT 20.6(H) 10.3 - 13.7 sec INR 1.81(H) 0.90 - 1.20 [facility] Comment: Interpretive data Oral anticoagulant [...] ORDERABLES Fi nal Result Performing Organization Address [facility] Co de Phone Number [facility] [address] [employer] [place] [address] * Magnesium (11/01/2023 2:09 AM CDT) Magnesium 2.5 1.4 - 2.5 mg/dL Blood 11/01/2023 2:09 AM CDT 11/01/2023 2:21 AM CDT Byron Olvera ANIMAL HUSBANDRY TECHNICIAN LAB BLOOD ORDERABLES Fi nal Result Performing Organization Address [facility]/State/ZIP Co de Phone Number [facility] [address] [place] [address] * (ABNORMAL) Renal function panel (11/01/2023 2:09 AM CDT) Sodium 131(L) 135 - 145 mmol/L Potassium, pl 4.0 3.3 - 4.9 mmol/L [facility] Chloride 91(L) 97 - 110 mmol/L [facility] CO2 25 22 - 32 mmol/L [facility] Anion gap 15 2 - 15 mmol/L [facility] BUN 89(H) 6 - 25 mg/dL [facility] Creatinine 8.97(H) 0.80 - 1.30 mg/dL [facility] Glucose 302(H) 70 - 199 mg/dL [facility] Comment: Interpretive Data Fasting glucose [...] 2022. Calcium 9.1 8.5 - 10.3 mg/dL [facility] Phosphorus, pl 4.1 2.3 - 4.5 mg/dL [facility] Albumin 2.9(L) 3.5 - 5.0 g/dL [facility] Blood 11/01/2023 2:09 AM CDT 11/01/2023 2:21 AM CDT Byron Olvera NP LAB BLOOD ORDERABLES Fi nal Result [facility] [address] Department [place] [address] * (ABNORMAL) CBC without differential (11/01/2023 2:09 AM CDT) [facility] WBC 5.9 3.8 - 9.9 K/cumm Hgb 7.7(L) 13.0 - 17.5 g/dL [facility] Hct 25.0(L) 38.9 - 50.3 % [facility] Plt 381 150 - 400 K/cumm [facility] MPV 9.2 9.1 - 12.3 fL [facility] RBC 2.65(L) 4.30 - 5.80 M/cumm [facility] MCV 94.3 81.3 - 96.4 fL [facility] MCH 29.1 27.1 - 33.3 pg [facility] MCHC 30.8(L) 32.3 - 35.7 g/dL [facility] RDW CV 14.8 11.1 - 14.9 % [facility] RDW SD 50.6(H) 35.7 - 48.1 fL [facility] NRBC abs 0.00 0.00 - 0.01 K/cumm [facility] Blood 11/01/2023 2:09 AM CDT 11/01/2023 2:21 AM CDT us Byron Olvera ANIMAL HUSBANDRY TECHNICIAN LAB BLOOD ORDERABLES Fi nal Result Performing Organization Address City/[facility]/ZIP Co de Phone Number [facility] [address] [employer] [place], [place] [phone] * Vancomycin level random (11/01/2023 2:09 AM CDT) [facility] Vancomycin random 17.3 mcg/mL Comment: Interpretive Data No reference ranges have been established for random drug levels. Current Interpretive Data was last revised on 2020. Blood 11/01/2023 2:09 AM CDT 11/01/2023 2:21 AM CDT Guerline Rodriguez PA LAB BLOOD ORDERABLES Final R esult [facility] [address] Department [employer] [place], [place] [id number] * (ABNORMAL) POCT glucose (11/01/2023 2:05 AM [...] APRIL CE Final Result Performing Organization Address [facility] de Phone Number [facility] [address] [facility] [place] [address] * (ABNORMAL) POCT glucose (10/31/2023 9:21 PM [...] APRIL CE Final Result Performing Organization Address [facility] de Phone Number [facility] [address] [facility] [place] [address] * (ABNORMAL) POCT glucose (10/31/2023 5:12 PM [...] APRIL CE Final Result Performing Organization Address [facility] Co de Phone Number [facility] [address] [facility] [place] [address] * (ABNORMAL) POCT glucose (10/31/2023 12:02 PM [...] APRIL CE Final Result Performing Organization Address [facility] Co de Phone Number [facility] [address] [facility] [place] [address] * (ABNORMAL) POCT glucose (10/31/2023 12:01 PM [...] APRIL CE Final Result Performing Organization Address [facility] Co de Phone Number [facility] [address] Department [place] [address] * (ABNORMAL) POCT glucose (10/31/2023 8:06 AM CDT) [facility] Glucose, POC 338(H) 70 - 140 mg/dL Comment: For Glucose values <35 mg/dl when Hematocrit is >60 mg/dl,the test may not accurately detect significant hypoglycemia,and testing in the Laboratory should be considered if clinically indicated. Blood 10/31/2023 8:06 AM CDT 10/31/2023 8:06 AM CDT us Jaqueline Valero MD LAB POCT ORDERABLES - APRIL CE Final Result [facility] [address] [place] [address] * eGFR (10/31/2023 2:25 AM CDT) [facility] eGFR 6 mL/min/1. 73 m2 Comment: [...] CDT 10/31/2023 2:35 AM CDT Byron Olvera ANIMAL HUSBANDRY TECHNICIAN LAB BLOOD ORDERABLES Fi nal Result Performing Organization Address City/[facility] Co de Phone Number [facility] [address] [facility] [place] [address] * (ABNORMAL) Protime-INR (10/31/2023 2:25 AM CDT) PT 20.6(H) 10.3 - 13.7 sec INR 1.81(H) 0.90 - 1.20 [facility] Comment: Interpretive data Oral anticoagulant therapeutic ranges: Venous thromboembolism prophylaxis or treatment: 2.0-3.0 CARDIOLOGY Standard range: 2.0-3.0 High-intensity range: 2.5-3.5 Refer to indication-specific guidelines for appropriate target ranges for prosthetic heart valve replacement. Current interpretive data was last revised on 2019. Blood 10/31/2023 2:25 AM CDT 10/31/2023 2:34 AM CDT Byron Olvera ANIMAL HUSBANDRY TECHNICIAN LAB BLOOD ORDERABLES Fi nal Result Performing Organization Address [facility] Co de Phone Number [facility] [address] [facility] [place] [address] * Magnesium (10/31/2023 2:25 AM CDT) Pathologist [facility] Magnesium 2.5 1.4 - 2.5 mg/dL Blood 10/31/2023 2:25 AM CDT 10/31/2023 2:35 AM CDT Byron Olvera ANIMAL HUSBANDRY TECHNICIAN LAB BLOOD ORDERABLES Fi nal Result Performing Organization Address [facility] Co de Phone Number [facility] [address] Department [place] [address] * (ABNORMAL) Renal function panel (10/31/2023 2:25 AM CDT) [facility] Sodium 131(L) 135 - 145 mmol/L Potassium, pl 4.0 3.3 - 4.9 mmol/L [facility] Chloride 91(L) 97 - 110 mmol/L [facility] CO2 24 22 - 32 mmol/L [facility] Anion gap 16(H) 2 - 15 mmol/L [facility] BUN 90(H) 6 - 25 mg/dL [facility] Creatinine 9.34(H) 0.80 - 1.30 mg/dL [facility] Glucose 275(H) 70 - 199 mg/dL [facility] Comment: Interpretive Data Fasting glucose [...] 2022. Calcium 9.5 8.5 - 10.3 mg/dL [facility] Phosphorus, pl 4.8(H) 2.3 - 4.5 mg/dL [facility] Albumin 2.7(L) 3.5 - 5.0 g/dL [facility] Blood 10/31/2023 2:25 AM CDT 10/31/2023 2:35 AM CDT Byron Olvera NP LAB BLOOD ORDERABLES Fi nal Result [facility] [address] [place] [address] * (ABNORMAL) CBC without differential (10/31/2023 2:25 AM CDT) [facility] WBC 6.6 3.8 - 9.9 K/cumm Hgb 7.9(L) 13.0 - 17.5 g/dL [facility] Hct 25.5(L) 38.9 - 50.3 % [facility] Plt 366 150 - 400 K/cumm [facility] MPV 9.3 9.1 - 12.3 fL [facility] RBC 2.70(L) 4.30 - 5.80 M/cumm [facility] MCV 94.4 81.3 - 96.4 fL [facility] MCH 29.3 27.1 - 33.3 pg [facility] MCHC 31.0(L) 32.3 - 35.7 g/dL [facility] RDW CV 15.1(H) 11.1 - 14.9 % [facility] RDW SD 52.3(H) 35.7 - 48.1 fL [facility] NRBC abs 0.00 0.00 - 0.01 K/cumm [facility] Blood 10/31/2023 2:25 AM CDT 10/31/2023 2:34 AM CDT us Byron Olvera NP LAB BLOOD ORDERABLES Fi nal Result Performing Organization Address City/[facility]/ZIP Co de Phone Number [facility] [address] [employer] [place] [address] * (ABNORMAL) POCT glucose (10/30/2023 9:39 PM CDT) [facility] Glucose, POC 238(H) 70 - 140 mg/dL Comment: For Glucose values <35 mg/dl when Hematocrit is >60 mg/dl,the test may not accurately detect significant hypoglycemia,and testing in the Laboratory should be considered if clinically indicated. Blood 10/30/2023 9:39 PM CDT 10/30/2023 9:39 PM CDT Jaqueline Valero MD LAB POCT ORDERABLES - APRIL CE Final Result [facility] [address] [place] [address] * (ABNORMAL) POCT glucose (10/30/2023 5:31 PM [...] APRIL CE Final Result Performing Organization Address [facility] de Phone Number [facility] [address] [facility] [place] [address] * (ABNORMAL) POCT glucose (10/30/2023 12:17 PM CDT) Glucose, POC 230(H) 70 - 140 mg/dL Comment: For Glucose values <35 mg/dl when Hematocrit is >60 mg/dl,the test may not accurately detect significant hypoglycemia,and testing in the Laboratory should be considered if clinically indicated. Blood 10/30/2023 12:1 7 PM CDT 10/30/2023 12:17 PM CDT Result [facility] Jaqueline Valero MD LAB POCT ORDERABLES - APRIL CE Final Result Performing Organization Address [facility] Co de Phone Number [facility] [address] [facility] [place] [address] * (ABNORMAL) POCT glucose (10/30/2023 6:20 AM [...] APRIL CE Final Result Performing Organization Address City/[facility]/ZIP Co de Phone Number [facility] [address] [employer] [place], [place] [phone] * eGFR (10/30/2023 4:18 AM CDT) eGFR [...] 10/30/2023 4:45 AM CDT us Byron Olvera ANIMAL HUSBANDRY TECHNICIAN LAB BLOOD ORDERABLES Fi nal Result [facility] [address] Department [employer] [place], [place] [id number] * (ABNORMAL) Protime-INR (10/30/2023 4:18 AM CDT) [facility] PT 22.8(H) 10.3 - 13.7 sec INR 2.00(H) 0.90 - 1.20 [facility] Comment: Interpretive data Oral anticoagulant therapeutic ranges: Venous thromboembolism prophylaxis or treatment: 2.0-3.0 CARDIOLOGY Standard range: 2.0-3.0 High-intensity range: 2.5-3.5 Refer to indication-specific guidelines for appropriate target ranges for prosthetic heart valve replacement. Current interpretive data was last revised on 2019. Blood 10/30/2023 4:18 AM CDT 10/30/2023 4:46 AM CDT Byron Olvera ANIMAL HUSBANDRY TECHNICIAN LAB BLOOD ORDERABLES Fi nal Result Performing Organization Address [facility] Co de Phone Number [facility] [address] [facility] [place] [address] * Magnesium (10/30/2023 4:18 AM CDT) [facility] Magnesium 2.4 1.4 - 2.5 mg/dL Blood 10/30/2023 4:18 AM CDT 10/30/2023 4:45 AM CDT Byron Olvera NP LAB BLOOD ORDERABLES Fi nal Result Performing Organization Address City/[facility] Co de Phone Number [facility] [address] [facility] [place] [address] * (ABNORMAL) Renal function panel (10/30/2023 4:18 AM CDT) [facility] Sodium 132(L) 135 - 145 mmol/L Potassium, pl 4.0 3.3 - 4.9 mmol/L [facility] Chloride 89(L) 97 - 110 mmol/L [facility] CO2 25 22 - 32 mmol/L [facility] Anion gap 18(H) 2 - 15 mmol/L [facility] BUN 93(H) 6 - 25 mg/dL [facility] Creatinine 9.55(H) 0.80 - 1.30 mg/dL [facility] Glucose 292(H) 70 - 199 mg/dL [facility] Comment: Interpretive Data Fasting glucose [...] 2022. Calcium 9.3 8.5 - 10.3 mg/dL [facility] Phosphorus, pl 5.4(H) 2.3 - 4.5 mg/dL [facility] Albumin 2.7(L) 3.5 - 5.0 g/dL [facility] Blood 10/30/2023 4:18 AM CDT 10/30/2023 4:45 AM CDT us Byron Olvera NP LAB BLOOD ORDERABLES nal Result [facility] [address] [place] [address] * (ABNORMAL) CBC without differential (10/30/2023 4:18 AM CDT) WBC 6.5 3.8 - 9.9 K/cumm Hgb 7.6(L) 13.0 - 17.5 g/dL [facility] Hct 24.3(L) 38.9 - 50.3 % [facility] Plt 317 150 - 400 K/cumm [facility] MPV 9.8 9.1 - 12.3 fL [facility] RBC 2.59(L) 4.30 - 5.80 M/cumm [facility] MCV 93.8 81.3 - 96.4 fL [facility] MCH 29.3 27.1 - 33.3 pg [facility] MCHC 31.3(L) 32.3 - 35.7 g/dL [facility] RDW CV 15.1(H) 11.1 - 14.9 % [facility] RDW SD 52.2(H) 35.7 - 48.1 fL [facility] NRBC abs 0.00 0.00 - 0.01 K/cumm [facility] Blood 10/30/2023 4:18 AM CDT 10/30/2023 4:45 AM CDT us Byron Olvera ANIMAL HUSBANDRY TECHNICIAN LAB BLOOD ORDERABLES Fi nal Result Performing Organization Address City/[facility]/ZIP Co de Phone Number [facility] [address] Department [employer] [place], [place] [id number] * (ABNORMAL) POCT glucose (10/29/2023 9:59 PM [...] APRIL CE Final Result Performing Organization Address City/[facility]/ZIP Co de Phone Number [facility] [address] [place] [address] * (ABNORMAL) POCT glucose (10/29/2023 5:41 PM [...] APRIL CE Final Result [facility] [address] [place] [address] * US Vein Duplex Lower Extremity Bilateral [...] APRIL CE Final Result [facility] [address] [place] [address] * (ABNORMAL) POCT glucose (10/29/2023 [...] APRIL CE Final Result Performing Organization Address [facility] Co de Phone Number [facility] [address] [place] [address] * eGFR (10/29/2023 4:04 AM CDT) Pathologist [facility] eGFR 6 mL/min/1. 73 m2 Comment: Interpretive [...] ORDERABLES Fi nal Result Performing Organization Address City/[facility]/ZIP Co de Phone Number [facility] [address] Department [place] [address] * (ABNORMAL) Protime-INR (10/29/2023 4:04 AM CDT) [facility] PT 26.9(H) 10.3 - 13.7 sec INR 2.36(H) 0.90 - 1.20 [facility] Comment: Interpretive data Oral anticoagulant [...] ORDERABLES Fi nal Result Performing Organization Address [facility] Co de Phone Number [facility] [address] [facility] [place] [address] * Magnesium (10/29/2023 4:04 AM CDT) [facility] Magnesium 2.4 1.4 - 2.5 mg/dL Blood 10/29/2023 4:04 AM CDT 10/29/2023 4:10 AM CDT Byron Olvera NP LAB BLOOD ORDERABLES Fi nal Result Performing Organization Address [facility] Co de Phone Number [facility] [address] [facility] [place] [address] * (ABNORMAL) Renal function panel (10/29/2023 4:04 AM CDT) [facility] Sodium 129(L) 135 - 145 mmol/L Potassium, pl 4.1 3.3 - 4.9 mmol/L [facility] Chloride 87(L) 97 - 110 mmol/L [facility] CO2 23 22 - 32 mmol/L [facility] Anion gap 19(H) 2 - 15 mmol/L [facility] BUN 85(H) 6 - 25 mg/dL [facility] Creatinine 9.66(H) 0.80 - 1.30 mg/dL [facility] Glucose 297(H) 70 - 199 mg/dL [facility] Comment: Interpretive Data Fasting glucose [...] 2022. Calcium 9.5 8.5 - 10.3 mg/dL [facility] Phosphorus, pl 5.8(H) 2.3 - 4.5 mg/dL [facility] Albumin 2.9(L) 3.5 - 5.0 g/dL [facility] Blood 10/29/2023 4:04 AM CDT 10/29/2023 4:10 AM CDT us Byron Olvera NP LAB BLOOD ORDERABLES Fi nal Result [facility] [address] [place] [address] * (ABNORMAL) CBC without differential (10/29/2023 4:04 AM CDT) WBC 7.0 3.8 - 9.9 K/cumm Hgb 7.9(L) 13.0 - 17.5 g/dL [facility] Hct 25.2(L) 38.9 - 50.3 % [facility] Plt 291 150 - 400 K/cumm [facility] MPV 10.0 9.1 - 12.3 fL [facility] RBC 2.70(L) 4.30 - 5.80 M/cumm [facility] MCV 93.3 81.3 - 96.4 fL [facility] MCH 29.3 27.1 - 33.3 pg [facility] MCHC 31.3(L) 32.3 - 35.7 g/dL [facility] RDW CV 15.4(H) 11.1 - 14.9 % [facility] RDW SD 52.0(H) 35.7 - 48.1 fL [facility] NRBC abs 0.00 0.00 - 0.01 K/cumm [facility] Blood 10/29/2023 4:04 AM CDT 10/29/2023 4:11 AM CDT Byron Olvera NP LAB BLOOD ORDERABLES Fi nal Result Performing Organization Address [facility] Co de Phone Number [facility] [address] [place] [address] * (ABNORMAL) POCT glucose (10/28/2023 8:22 PM ACCOUNTING METHODS ANALYST) Glucose, POC 195(H) 70 - 140 mg/dL Comment: For Glucose values <35 mg/dl when Hematocrit is >60 mg/dl,the test may not accurately detect significant hypoglycemia,and testing in the Laboratory should be considered if clinically indicated. Blood 10/28/2023 8:22 PM ACCOUNTING METHODS ANALYST 10/28/2023 8:22 PM ACCOUNTING METHODS ANALYST Jaqueline Valero MD LAB POCT ORDERABLES - APRIL CE Final Result Performing Organization Address City/[facility]/ZIP Co de Phone Number [facility] [address] [employer] [place], [place] [id number] * (ABNORMAL) POCT glucose (10/28/2023 5:24 PM ACCOUNTING METHODS ANALYST) Glucose, POC 222(H) 70 - 140 mg/dL Comment: For Glucose values <35 mg/dl when Hematocrit is >60 mg/dl,the test may not accurately detect significant hypoglycemia,and testing in the Laboratory should be considered if clinically indicated. Blood 10/28/2023 5:24 PM ACCOUNTING METHODS ANALYST 10/28/2023 5:24 PM ACCOUNTING METHODS ANALYST Jaqueline Valero MD LAB POCT ORDERABLES - APRIL CE Final Result Performing Organization Address [facility] Co de Phone Number [facility] [address] [facility] [place] [address] * (ABNORMAL) POCT glucose (10/28/2023 12:45 PM ACCOUNTING METHODS ANALYST) Glucose, POC 201(H) 70 - 140 mg/dL Comment: For Glucose values <35 mg/dl when Hematocrit is >60 mg/dl,the test may not accurately detect significant hypoglycemia,and testing in the Laboratory should be considered if clinically indicated. Blood 10/28/2023 12:4 5 PM ACCOUNTING METHODS ANALYST 10/28/2023 12:45 PM ACCOUNTING METHODS ANALYST Jaqueline Valero MD LAB POCT ORDERABLES - APRIL CE Final Result Performing Organization Address [facility] de Phone Number [facility] [address] [facility] [place] [address] * POCT glucose (10/28/2023 8:04 AM ACCOUNTING METHODS ANALYST) Glucose, POC 101 70 - 140 mg/dL Comment: For Glucose values <35 mg/dl when Hematocrit is >60 mg/dl,the test may not accurately detect significant hypoglycemia,and testing in the Laboratory should be considered if clinically indicated. Blood 10/28/2023 8:04 AM ACCOUNTING METHODS ANALYST 10/28/2023 8:04 AM ACCOUNTING METHODS ANALYST Jaqueline Valero MD LAB POCT ORDERABLES - APRIL CE Final Result Performing Organization Address [facility] Co de Phone Number [facility] [address] [facility] [place] [address] * XR Chest 1 View - Portable - in AM (10/28/2023 6:00 AM ACCOUNTING METHODS ANALYST) Anatomical Region Laterality Modality Body, Chest N/A Computed Radiogr aphy 10/28/2023 8:40 AM ACCOUNTING METHODS ANALYST Impressions 10/28/2023 8:40 AM ACCOUNTING METHODS ANALYST Comparison made to radiograph 10/27/2023. Right internal jugular approach central venous catheter tip overlying the superior vena cava. ??Median sternotomy wires and plates in similar alignment. Likely small bilateral pleural effusions with fluid along the right minor fissure. ??There is mild bibasilar atelectasis. ??No pneumothorax. ??Cardiomediastinal silhouette is stably enlarged. Electronically signed by: Trace Barrow M.D. Narrative 10/28/2023 8:40 AM ACCOUNTING METHODS ANALYST EXAMINATION: XR CHEST 1 VIEW Procedure Note [...] signed by: Trace Barrow M.D. Byron Olvera ANIMAL HUSBANDRY TECHNICIAN IMG XR PROCEDURES Final Result * eGFR (10/28/2023 12:34 AM ACCOUNTING METHODS ANALYST) eGFR 6 mL/min/1. 73 m2 Comment: Interpretive [...] reviewed 2021. Blood 10/28/2023 12:3 4 AM ACCOUNTING METHODS ANALYST 10/28/2023 1:02 AM ACCOUNTING METHODS ANALYST us Byron Olvera NP LAB BLOOD ORDERABLES Fi nal Result Performing Organization Address [facility] Co de Phone Number [facility] [address] Department of [employer] [place], [place] [id number] * (ABNORMAL) aPTT (10/28/2023 12:34 AM ACCOUNTING METHODS ANALYST) aPTT 102(H) 28 - 38 sec Comment: Interpretive Data Heparin therapeutic range: 66.0 - 100.0 seconds. Range based on correlation with therapeutic heparin activity range of 0.3 - 0.7 Units/mL. Current interpretive data was last revised on 2023. Blood 10/28/2023 12:3 4 AM ACCOUNTING METHODS ANALYST 10/28/2023 1:02 AM ACCOUNTING METHODS ANALYST Narrative [facility] - 10/28/2023 1:15 AM ACCOUNTING METHODS ANALYST While on heparin Jaqueline Valero MD LAB BLOOD ORDERABLES Final Result Performing Organization Address [facility] Co de Phone Number [facility] [address] Department of [employer] [place], [place] [id number] * (ABNORMAL) Protime-INR (10/28/2023 12:34 AM ACCOUNTING METHODS ANALYST) PT 30.1(H) 10.3 - 13.7 sec INR 2.64(H) 0.90 - 1.20 [facility] Comment: Interpretive data Oral anticoagulant therapeutic ranges: Venous thromboembolism prophylaxis or treatment: 2.0-3.0 CARDIOLOGY Standard range: 2.0-3.0 High-intensity range: 2.5-3.5 Refer to indication-specific guidelines for appropriate target ranges for prosthetic heart valve replacement. Current interpretive data was last revised on 2019. Blood 10/28/2023 12:3 4 AM ACCOUNTING METHODS ANALYST 10/28/2023 1:02 AM ACCOUNTING METHODS ANALYST Byron Olvera NP LAB BLOOD ORDERABLES Fi nal Result Performing Organization Address City/[facility] Co de Phone Number [facility] [address] [facility] [place] [address] * Magnesium (10/28/2023 12:34 AM ACCOUNTING METHODS ANALYST) [facility] Magnesium 2.3 1.4 - 2.5 mg/dL Blood 10/28/2023 12:3 4 AM ACCOUNTING METHODS ANALYST 10/28/2023 1:02 AM ACCOUNTING METHODS ANALYST Byron Olvera NP LAB BLOOD ORDERABLES Fi nal Result Performing Organization Address [facility] Co de Phone Number [facility] [address] [facility] [place] [address] * (ABNORMAL) Renal function panel (10/28/2023 12:34 AM ACCOUNTING METHODS ANALYST) [facility] Sodium 128(L) 135 - 145 mmol/L Potassium, pl 4.4 3.3 - 4.9 mmol/L [facility] Chloride 87(L) 97 - 110 mmol/L [facility] CO2 22 22 - 32 mmol/L [facility] Anion gap 19(H) 2 - 15 mmol/L [facility] BUN 90(H) 6 - 25 mg/dL [facility] Creatinine 9.98(H) 0.80 - 1.30 mg/dL [facility] Glucose 270(H) 70 - 199 mg/dL [facility] Comment: Interpretive Data Fasting glucose [...] 2022. Calcium 8.9 8.5 - 10.3 mg/dL [facility] Phosphorus, pl 6.3(H) 2.3 - 4.5 mg/dL [facility] Albumin 2.9(L) 3.5 - 5.0 g/dL [facility] Blood 10/28/2023 12:3 4 AM ACCOUNTING METHODS ANALYST 10/28/2023 1:02 AM ACCOUNTING METHODS ANALYST us Byron Olvera NP LAB BLOOD ORDERABLES Fi nal Result [facility] [address] [place] [address] * (ABNORMAL) CBC without differential (10/28/2023 12:34 AM ACCOUNTING METHODS ANALYST) WBC 7.4 3.8 - 9.9 K/cumm Hgb 7.4(L) 13.0 - 17.5 g/dL [facility] Hct 24.1(L) 38.9 - 50.3 % [facility] Plt 244 150 - 400 K/cumm [facility] MPV 10.5 9.1 - 12.3 fL [facility] RBC 2.55(L) 4.30 - 5.80 M/cumm [facility] MCV 94.5 81.3 - 96.4 fL [facility] MCH 29.0 27.1 - 33.3 pg [facility] MCHC 30.7(L) 32.3 - 35.7 g/dL [facility] RDW CV 15.6(H) 11.1 - 14.9 % [facility] RDW SD 53.4(H) 35.7 - 48.1 fL [facility] NRBC abs 0.00 0.00 - 0.01 K/cumm [facility] Blood 10/28/2023 12:3 4 AM ACCOUNTING METHODS ANALYST 10/28/2023 1:03 AM ACCOUNTING METHODS ANALYST Byron Olvera ANIMAL HUSBANDRY TECHNICIAN LAB BLOOD ORDERABLES Fi nal Result Performing Organization Address [facility] Co de Phone Number [facility] [address] [place] [address] * (ABNORMAL) POCT glucose (10/27/2023 10:01 PM ACCOUNTING METHODS ANALYST) Glucose, POC 312(H) 70 - 140 mg/dL Comment: For Glucose values <35 mg/dl when Hematocrit is >60 mg/dl,the test may not accurately detect significant hypoglycemia,and testing in the Laboratory should be considered if clinically indicated. Blood 10/27/2023 10:0 1 PM ACCOUNTING METHODS ANALYST 10/27/2023 10:01 PM ACCOUNTING METHODS ANALYST Jaqueline Valero MD LAB POCT ORDERABLES - APRIL CE Final Result Performing Organization Address [facility] de Phone Number [facility] [address] Department [place] [place] [address] * POCT glucose (10/27/2023 5:48 PM ACCOUNTING METHODS ANALYST) Glucose, POC 108 70 - 140 mg/dL Comment: For Glucose values <35 mg/dl when Hematocrit is >60 mg/dl,the test may not accurately detect significant hypoglycemia,and testing in the Laboratory should be considered if clinically indicated. Blood 10/27/2023 5:48 PM ACCOUNTING METHODS ANALYST 10/27/2023 5:48 PM ACCOUNTING METHODS ANALYST Jaqueline Valero MD LAB POCT ORDERABLES - APRIL CE Final Result Performing Organization Address [facility] de Phone Number [facility] [address] Department [place] [place] [address] * (ABNORMAL) POCT glucose (10/27/2023 11:54 AM ACCOUNTING METHODS ANALYST) Glucose, POC 232(H) 70 - 140 mg/dL Comment: For Glucose values <35 mg/dl when Hematocrit is >60 mg/dl,the test may not accurately detect significant hypoglycemia,and testing in the Laboratory should be considered if clinically indicated. Blood 10/27/2023 11:5 4 AM ACCOUNTING METHODS ANALYST 10/27/2023 11:54 AM ACCOUNTING METHODS ANALYST Jaqueline Valero MD LAB POCT ORDERABLES - APRIL CE Final Result Performing Organization Address [facility] de Phone Number [facility] [address] [facility] [place] [address] * (ABNORMAL) T4, free (10/27/2023 11:02 AM ACCOUNTING METHODS ANALYST) Free T4 0.68(L) 0.90 - 1.70 ng/dL Blood 10/27/2023 11:0 2 AM ACCOUNTING METHODS ANALYST 10/27/2023 11:14 AM ACCOUNTING METHODS ANALYST us Fernandez Carranza MD LAB BLOOD ORDERABLES Final Resu lt Performing Organization Address [facility] de Phone Number [facility] [address] Department [place] [place] [address] * (ABNORMAL) POCT glucose (10/27/2023 8:28 AM ACCOUNTING METHODS ANALYST) Glucose, POC 255(H) 70 - 140 mg/dL Comment: For Glucose values <35 mg/dl when Hematocrit is >60 mg/dl,the test may not accurately detect significant hypoglycemia,and testing in the Laboratory should be considered if clinically indicated. Blood 10/27/2023 8:28 AM ACCOUNTING METHODS ANALYST 10/27/2023 8:28 AM ACCOUNTING METHODS ANALYST us Jaqueline Valero MD LAB POCT ORDERABLES - APRIL CE Final Result Performing Organization Address City/[facility]/ZIP Co de Phone Number [facility] [address] [employer] [place] [address] * XR Chest 1 View - Portable - in AM (10/27/2023 6:14 AM ACCOUNTING METHODS ANALYST) Anatomical Region Laterality Modality Body, Chest N/A Computed Radiogr aphy 10/27/2023 10:5 5 AM ACCOUNTING METHODS ANALYST Impressions 10/27/2023 10:55 AM ACCOUNTING METHODS ANALYST Right internal jugular central venous catheter terminates in the superior cavoatrial junction. Unchanged small left pleural effusion with associated atelectasis. No consolidation to suggest pneumonia. ??No pneumothorax. ??Cardiac mediastinal silhouette is stable. Electronically signed by: Gucci Moe M.D. Narrative 10/27/2023 10:55 AM ACCOUNTING METHODS ANALYST EXAMINATION: XR CHEST 1 VIEW HISTORY: pleural [...] signed by: Gucci Moe M.D. Byron Olvera ANIMAL HUSBANDRY TECHNICIAN IMG XR PROCEDURES Final Result * (ABNORMAL) Osmolality, blood (10/27/2023 6:02 AM ACCOUNTING METHODS ANALYST) Osmo 313(H) 275 - 295 mOsm/kg Blood 10/27/2023 6:02 AM ACCOUNTING METHODS ANALYST 10/27/2023 6:12 AM ACCOUNTING METHODS ANALYST us Fernandez Carranza MD LAB BLOOD ORDERABLES Final Resu lt Performing Organization Address [facility]/ZIP Co de Phone Number [facility] [address] [place] [place] [address] * (ABNORMAL) TSH (10/27/2023 2:30 AM ACCOUNTING METHODS ANALYST) Pathologist [facility] Thyroid Stimulating Hormone 13.20(H) 0.30 - 4.20 mcIUnit/mL Blood 10/27/2023 2:30 AM ACCOUNTING METHODS ANALYST 10/27/2023 2:42 AM ACCOUNTING METHODS ANALYST Jaqueline Valero MD LAB BLOOD ORDERABLES Final Result Performing Organization Address [facility] de Phone Number [facility] [address] [facility] [place] [address] * (ABNORMAL) aPTT (10/27/2023 2:30 AM ACCOUNTING METHODS ANALYST) [facility] aPTT 91(H) 28 - 38 sec Comment: Interpretive Data Heparin therapeutic range: 66.0 - 100.0 seconds. Range based on correlation with therapeutic heparin activity range of 0.3 - 0.7 Units/mL. Current interpretive data was last revised on 2023. Blood 10/27/2023 2:30 AM ACCOUNTING METHODS ANALYST 10/27/2023 2:34 AM ACCOUNTING METHODS ANALYST Jaqueline Valero MD LAB BLOOD ORDERABLES Final Result Performing Organization Address [facility] de Phone Number [facility] [address] [facility] [place] [address] * eGFR (10/27/2023 2:30 AM ACCOUNTING METHODS ANALYST) Pathologist [facility] eGFR 6 mL/min/1. 73 m2 Comment: Interpretive [...] last reviewed 2021. Blood 10/27/2023 2:30 AM ACCOUNTING METHODS ANALYST 10/27/2023 2:42 AM ACCOUNTING METHODS ANALYST Byron Olvera NP LAB BLOOD ORDERABLES Fi nal Result Performing Organization Address [facility] de Phone Number [facility] [address] [employer] [place], [place] [id number] * (ABNORMAL) Protime-INR (10/27/2023 2:30 AM ACCOUNTING METHODS ANALYST) PT 22.7(H) 10.3 - 13.7 sec INR 1.99(H) 0.90 - 1.20 [facility] Comment: Interpretive data Oral anticoagulant therapeutic ranges: Venous thromboembolism prophylaxis or treatment: 2.0-3.0 CARDIOLOGY Standard range: 2.0-3.0 High-intensity range: 2.5-3.5 Refer to indication-specific guidelines for appropriate target ranges for prosthetic heart valve replacement. Current interpretive data was last revised on 2019. Blood 10/27/2023 2:30 AM ACCOUNTING METHODS ANALYST 10/27/2023 2:34 AM ACCOUNTING METHODS ANALYST Byron Olvera NP LAB BLOOD ORDERABLES Fi nal Result Performing Organization Address [facility] de Phone Number [facility] [address] [place] [address] * Magnesium (10/27/2023 2:30 AM ACCOUNTING METHODS ANALYST) Pathologist [facility] Magnesium 2.3 1.4 - 2.5 mg/dL Blood 10/27/2023 2:30 AM ACCOUNTING METHODS ANALYST 10/27/2023 2:42 AM ACCOUNTING METHODS ANALYST Byron Olvera NP LAB BLOOD ORDERABLES Fi nal Result [facility] [address] [place] [address] * (ABNORMAL) Renal function panel (10/27/2023 2:30 AM ACCOUNTING METHODS ANALYST) Pathologist [facility] Sodium 123(L) 135 - 145 mmol/L Potassium, pl 4.2 3.3 - 4.9 mmol/L [facility] Chloride 85(L) 97 - 110 mmol/L [facility] CO2 24 22 - 32 mmol/L [facility] Anion gap 14 2 - 15 mmol/L [facility] BUN 87(H) 6 - 25 mg/dL [facility] Creatinine 10.09(H) 0.80 - 1.30 mg/dL [facility] Glucose 192 70 - 199 mg/dL [facility] Comment: Interpretive Data Fasting glucose [...] 2022. Calcium 8.7 8.5 - 10.3 mg/dL [facility] Phosphorus, pl 7.1(H) 2.3 - 4.5 mg/dL [facility] Albumin 2.9(L) 3.5 - 5.0 g/dL [facility] Blood 10/27/2023 2:30 AM ACCOUNTING METHODS ANALYST 10/27/2023 2:42 AM ACCOUNTING METHODS ANALYST Byron Olvera NP LAB BLOOD ORDERABLES Fi nal Result Performing Organization Address [facility] Co de Phone Number [facility] [address] [place] [address] * (ABNORMAL) CBC without differential (10/27/2023 2:30 AM ACCOUNTING METHODS ANALYST) [facility] WBC 8.0 3.8 - 9.9 K/cumm Hgb 7.5(L) 13.0 - 17.5 g/dL [facility] Hct 23.7(L) 38.9 - 50.3 % [facility] Plt 222 150 - 400 K/cumm [facility] MPV 10.3 9.1 - 12.3 fL [facility] RBC 2.55(L) 4.30 - 5.80 M/cumm [facility] MCV 92.9 81.3 - 96.4 fL [facility] MCH 29.4 27.1 - 33.3 pg [facility] MCHC 31.6(L) 32.3 - 35.7 g/dL [facility] RDW CV 15.6(H) 11.1 - 14.9 % [facility] RDW SD 53.1(H) 35.7 - 48.1 fL [facility] NRBC abs 0.00 0.00 - 0.01 K/cumm [facility] Blood 10/27/2023 2:30 AM ACCOUNTING METHODS ANALYST 10/27/2023 2:42 AM ACCOUNTING METHODS ANALYST Byron Olvera NP LAB BLOOD ORDERABLES Fi nal Result Performing Organization Address City/[facility]/ZIP Co de Phone Number [facility] [address] [place] [place] [address] * (ABNORMAL) POCT glucose (10/26/2023 11:15 PM ACCOUNTING METHODS ANALYST) Pathologist [facility] Glucose, POC 220(H) 70 - 140 mg/dL Comment: For Glucose values <35 mg/dl when Hematocrit is >60 mg/dl,the test may not accurately detect significant hypoglycemia,and testing in the Laboratory should be considered if clinically indicated. Blood 10/26/2023 11:1 5 PM ACCOUNTING METHODS ANALYST 10/26/2023 11:15 PM ACCOUNTING METHODS ANALYST Jaqueline Valero MD LAB POCT ORDERABLES - APRIL CE Final Result Performing Organization Address [facility] de Phone Number [facility] [address] [facility] [place] [address] * (ABNORMAL) POCT glucose (10/26/2023 4:53 PM ACCOUNTING METHODS ANALYST) Glucose, POC 333(H) 70 - 140 mg/dL Comment: For Glucose values <35 mg/dl when Hematocrit is >60 mg/dl,the test may not accurately detect significant hypoglycemia,and testing in the Laboratory should be considered if clinically indicated. Blood 10/26/2023 4:53 PM ACCOUNTING METHODS ANALYST 10/26/2023 4:53 PM ACCOUNTING METHODS ANALYST Jaqueline Valero MD LAB POCT ORDERABLES - APRIL CE Final Result Performing Organization Address [facility] de Phone Number [facility] [address] [place] [address] * (ABNORMAL) POCT glucose (10/26/2023 11:57 AM ACCOUNTING METHODS ANALYST) Glucose, POC 203(H) 70 - 140 mg/dL Comment: For Glucose values <35 mg/dl when Hematocrit is >60 mg/dl,the test may not accurately detect significant hypoglycemia,and testing in the Laboratory should be considered if clinically indicated. Blood 10/26/2023 11:5 7 AM ACCOUNTING METHODS ANALYST 10/26/2023 11:57 AM ACCOUNTING METHODS ANALYST Jaqueline Valero MD LAB POCT ORDERABLES - APRIL CE Final Result Performing Organization Address [facility] de Phone Number [facility] [address] [place] [address] * POCT glucose (10/26/2023 8:00 AM ACCOUNTING METHODS ANALYST) [facility] Signature Glucose, POC 90 70 - 140 mg/dL Comment: For Glucose values <35 mg/dl when Hematocrit is >60 mg/dl,the test may not accurately detect significant hypoglycemia,and testing in the Laboratory should be considered if clinically indicated. Blood 10/26/2023 8:00 AM ACCOUNTING METHODS ANALYST 10/26/2023 8:00 AM ACCOUNTING METHODS ANALYST us Jaqueline Valero MD LAB POCT ORDERABLES - APRIL CE Final Result [facility] [address] [place] [address] * XR Chest 1 View - Portable - in AM (10/26/2023 5:09 AM ACCOUNTING METHODS ANALYST) Anatomical Region Laterality Modality Body, Chest N/A Computed Radiogr aphy 10/26/2023 7:40 AM ACCOUNTING METHODS ANALYST Impressions 10/26/2023 7:40 AM ACCOUNTING METHODS ANALYST Comparison chest radiograph 10/25/2023 at 6:39 AM. [...] Chris Troncoso M.D. Narrative 10/26/2023 7:40 AM ACCOUNTING METHODS ANALYST EXAMINATION: ??1 view chest radiograph Procedure Note [...] signed by: Chris Troncoso M.D. Byron Olvera ANIMAL HUSBANDRY TECHNICIAN IMG XR PROCEDURES Final Result * eGFR (10/26/2023 2:29 AM ACCOUNTING METHODS ANALYST) eGFR 6 mL/min/1. 73 m2 Comment: Interpretive [...] last reviewed 2021. Blood 10/26/2023 2:29 AM ACCOUNTING METHODS ANALYST 10/26/2023 3:11 AM ACCOUNTING METHODS ANALYST Byron Olvera NP LAB BLOOD ORDERABLES Fi nal Result Performing Organization Address [facility] Co de Phone Number [facility] [address] [facility] [employer] [place], [place] [phone] * (ABNORMAL) aPTT (10/26/2023 2:29 AM ACCOUNTING METHODS ANALYST) aPTT 74(H) 28 - 38 sec Comment: Interpretive Data Heparin therapeutic range: 66.0 - 100.0 seconds. Range based on correlation with therapeutic heparin activity range of 0.3 - 0.7 Units/mL. Current interpretive data was last revised on 2023. Blood 10/26/2023 2:29 AM ACCOUNTING METHODS ANALYST 10/26/2023 2:57 AM ACCOUNTING METHODS ANALYST Jaqueline Valero MD LAB BLOOD ORDERABLES Final Result Performing Organization Address [facility] Co de Phone Number [facility] [address] [facility] [place] [address] * (ABNORMAL) Protime-INR (10/26/2023 2:29 AM ACCOUNTING METHODS ANALYST) PT 19.4(H) 10.3 - 13.7 sec INR 1.70(H) 0.90 - 1.20 [facility] Comment: Interpretive data Oral anticoagulant therapeutic ranges: Venous thromboembolism prophylaxis or treatment: 2.0-3.0 CARDIOLOGY Standard range: 2.0-3.0 High-intensity range: 2.5-3.5 Refer to indication-specific guidelines for appropriate target ranges for prosthetic heart valve replacement. Current interpretive data was last revised on 2019. Blood 10/26/2023 2:29 AM ACCOUNTING METHODS ANALYST 10/26/2023 2:57 AM ACCOUNTING METHODS ANALYST Byron Rudi Olvera ANIMAL HUSBANDRY TECHNICIAN LAB BLOOD ORDERABLES Fi nal Result [facility] [address] [place] [address] * Magnesium (10/26/2023 2:29 AM ACCOUNTING METHODS ANALYST) [facility] Magnesium 2.2 1.4 - 2.5 mg/dL Blood 10/26/2023 2:29 AM ACCOUNTING METHODS ANALYST 10/26/2023 3:11 AM ACCOUNTING METHODS ANALYST Byron Rudi Olvera NP LAB BLOOD ORDERABLES Fi nal Result Performing Organization Address [facility] Co de Phone Number [facility] [address] [employer] [place] [address] * (ABNORMAL) Renal function panel (10/26/2023 2:29 AM ACCOUNTING METHODS ANALYST) [facility] Sodium 124(L) 135 - 145 mmol/L Potassium, pl 4.2 3.3 - 4.9 mmol/L [facility] Chloride 84(L) 97 - 110 mmol/L [facility] CO2 23 22 - 32 mmol/L [facility] Anion gap 17(H) 2 - 15 mmol/L [facility] BUN 85(H) 6 - 25 mg/dL [facility] Creatinine 9.95(H) 0.80 - 1.30 mg/dL [facility] Glucose 206(H) 70 - 199 mg/dL [facility] Comment: Interpretive Data Fasting glucose [...] 2022. Calcium 8.6 8.5 - 10.3 mg/dL [facility] Phosphorus, pl 6.5(H) 2.3 - 4.5 mg/dL [facility] Albumin 3.0(L) 3.5 - 5.0 g/dL [facility] Blood 10/26/2023 2:29 AM ACCOUNTING METHODS ANALYST 10/26/2023 3:11 AM ACCOUNTING METHODS ANALYST Byron Olvera NP LAB BLOOD ORDERABLES Fi nal Result Performing Organization Address [facility] Co de Phone Number [facility] [address] [employer] [place], [place] [id number] * (ABNORMAL) CBC without differential (10/26/2023 2:29 AM ACCOUNTING METHODS ANALYST) [facility] WBC 7.9 3.8 - 9.9 K/cumm Hgb 7.9(L) 13.0 - 17.5 g/dL [facility] Hct 24.7(L) 38.9 - 50.3 % [facility] Plt 209 150 - 400 K/cumm [facility] MPV 10.6 9.1 - 12.3 fL [facility] RBC 2.64(L) 4.30 - 5.80 M/cumm [facility] MCV 93.6 81.3 - 96.4 fL [facility] MCH 29.9 27.1 - 33.3 pg [facility] MCHC 32.0(L) 32.3 - 35.7 g/dL [facility] RDW CV 15.5(H) 11.1 - 14.9 % [facility] RDW SD 52.4(H) 35.7 - 48.1 fL [facility] NRBC abs 0.00 0.00 - 0.01 K/cumm [facility] Blood 10/26/2023 2:29 AM ACCOUNTING METHODS ANALYST 10/26/2023 3:11 AM ACCOUNTING METHODS ANALYST Byron Olvera NP LAB BLOOD ORDERABLES Fi nal Result Performing Organization Address City/[facility]/ZIP Co de Phone Number [facility] [address] Department [employer] [place], [place] [phone] * (ABNORMAL) aPTT (10/25/2023 9:15 PM ACCOUNTING METHODS ANALYST) aPTT 78(H) 28 - 38 sec Comment: Interpretive Data Heparin therapeutic range: 66.0 - 100.0 seconds. Range based on correlation with therapeutic heparin activity range of 0.3 - 0.7 Units/mL. Current interpretive data was last revised on 2023. Blood 10/25/2023 9:15 PM ACCOUNTING METHODS ANALYST 10/25/2023 9:19 PM ACCOUNTING METHODS ANALYST Jaqueline Valero MD LAB BLOOD ORDERABLES Final Result Performing Organization Address [facility] Co de Phone Number [facility] [address] [facility] [employer] [place], [place] [phone] * (ABNORMAL) POCT glucose (10/25/2023 9:14 PM ACCOUNTING METHODS ANALYST) Glucose, POC 147(H) 70 - 140 mg/dL Comment: For Glucose values <35 mg/dl when Hematocrit is >60 mg/dl,the test may not accurately detect significant hypoglycemia,and testing in the Laboratory should be considered if clinically indicated. Blood 10/25/2023 9:14 PM ACCOUNTING METHODS ANALYST 10/25/2023 9:14 PM ACCOUNTING METHODS ANALYST Jaqueline Valero MD LAB POCT ORDERABLES - APRIL CE Final Result Performing Organization Address [facility] Co de Phone Number [facility] [address] [facility] [place] [address] * (ABNORMAL) POCT glucose (10/25/2023 4:51 PM ACCOUNTING METHODS ANALYST) Glucose, POC 238(H) 70 - 140 mg/dL Comment: For Glucose values <35 mg/dl when Hematocrit is >60 mg/dl,the test may not accurately detect significant hypoglycemia,and testing in the Laboratory should be considered if clinically indicated. Blood 10/25/2023 4:51 PM ACCOUNTING METHODS ANALYST 10/25/2023 4:51 PM ACCOUNTING METHODS ANALYST Jaqueline Valero MD LAB POCT ORDERABLES - APRIL CE Final Result Performing Organization Address [facility] Co de Phone Number [facility] [address] [employer] [place], [place] [phone] * (ABNORMAL) aPTT (10/25/2023 2:48 PM ACCOUNTING METHODS ANALYST) aPTT 72(H) 28 - 38 sec Comment: Interpretive Data Heparin therapeutic range: 66.0 - 100.0 seconds. Range based on correlation with therapeutic heparin activity range of 0.3 - 0.7 Units/mL. Current interpretive data was last revised on 2023. Blood 10/25/2023 2:48 PM ACCOUNTING METHODS ANALYST 10/25/2023 3:04 PM ACCOUNTING METHODS ANALYST Jaqueline Valero MD LAB BLOOD ORDERABLES Final Result Performing Organization Address [facility] de Phone Number [facility] [address] [employer] [place], [place] [phone] * (ABNORMAL) POCT glucose (10/25/2023 11:15 AM ACCOUNTING METHODS ANALYST) Glucose, POC 208(H) 70 - 140 mg/dL Comment: For Glucose values <35 mg/dl when Hematocrit is >60 mg/dl,the test may not accurately detect significant hypoglycemia,and testing in the Laboratory should be considered if clinically indicated. Blood 10/25/2023 11:1 5 AM ACCOUNTING METHODS ANALYST 10/25/2023 11:15 AM ACCOUNTING METHODS ANALYST Jaqueline Valero MD LAB POCT ORDERABLES - APRIL CE Final Result Performing Organization Address [facility] Co de Phone Number [facility] [address] [facility] [employer] [place], [place] [phone] * POCT glucose (10/25/2023 9:49 AM ACCOUNTING METHODS ANALYST) Glucose, POC 119 70 - 140 mg/dL Comment: For Glucose values <35 mg/dl when Hematocrit is >60 mg/dl,the test may not accurately detect significant hypoglycemia,and testing in the Laboratory should be considered if clinically indicated. Blood 10/25/2023 9:49 AM ACCOUNTING METHODS ANALYST 10/25/2023 9:49 AM ACCOUNTING METHODS ANALYST Jaqueline Valero MD LAB POCT ORDERABLES - APRIL CE Final Result Performing Organization Address [facility] de Phone Number [facility] [address] Department [place] [employer] [place] [place] [address] * POCT glucose (10/25/2023 7:36 AM ACCOUNTING METHODS ANALYST) [facility] Signature Glucose, POC 77 70 - 140 mg/dL [facility] Comment: For Glucose values <35 mg/dl when Hematocrit is >60 mg/dl,the test may not accurately detect significant hypoglycemia,and testing in the Laboratory should be considered if clinically indicated. Blood 10/25/2023 7:36 AM ACCOUNTING METHODS ANALYST 10/25/2023 7:36 AM ACCOUNTING METHODS ANALYST Jaqueline Valero MD LAB POCT ORDERABLES - APRIL CE Final Result Performing Organization Address [facility] de Phone Number [facility] [address] Department [place] [employer] [place] [place] [address] * XR Chest 1 View - Portable - in AM (10/25/2023 6:52 AM ACCOUNTING METHODS ANALYST) Anatomical Region Laterality Modality Body, Chest N/A Computed Radiogr aphy 10/25/2023 11:4 3 AM ACCOUNTING METHODS ANALYST Impressions 10/25/2023 1:22 PM ACCOUNTING METHODS ANALYST Comparison made to 10/24/2023. ??Sternal fixation wires [...] Arnoldo Abdul M.D. Narrative 10/25/2023 1:22 PM ACCOUNTING METHODS ANALYST EXAMINATION: XR CHEST 1 VIEW Procedure Note [...] signed by: Arnoldo Abdul M.D. Byron Olvera ANIMAL HUSBANDRY TECHNICIAN IMG XR PROCEDURES Final Result * (ABNORMAL) aPTT (10/25/2023 6:48 AM ACCOUNTING METHODS ANALYST) aPTT 65(H) 28 - 38 sec [facility] Comment: Interpretive Data Heparin therapeutic range: 66.0 - 100.0 seconds. Range based on correlation with therapeutic heparin activity range of 0.3 - 0.7 Units/mL. Current interpretive data was last revised on 2023. Blood 10/25/2023 6:48 AM ACCOUNTING METHODS ANALYST 10/25/2023 6:58 AM ACCOUNTING METHODS ANALYST us Jaqueline Valero MD LAB BLOOD ORDERABLES Final Result [facility] [address] Department [place] [employer] [place] [address] * POCT glucose (10/25/2023 4:23 AM ACCOUNTING METHODS ANALYST) Glucose, POC 130 70 - 140 mg/dL [facility] Comment: For Glucose values <35 mg/dl when Hematocrit is >60 mg/dl,the test may not accurately detect significant hypoglycemia,and testing in the Laboratory should be considered if clinically indicated. Blood 10/25/2023 4:23 AM ACCOUNTING METHODS ANALYST 10/25/2023 4:23 AM ACCOUNTING METHODS ANALYST us Jaqueline Valero MD LAB POCT ORDERABLES - APRIL CE Final Result [facility] [address] [place] [address] * eGFR (10/25/2023 12:34 AM ACCOUNTING METHODS ANALYST) [facility] eGFR 5 mL/min/1. 73 m2 [facility] Comment: Interpretive Data Reference Interval [...] reviewed 2021. Blood 10/25/2023 12:3 4 AM ACCOUNTING METHODS ANALYST 10/25/2023 12:42 AM ACCOUNTING METHODS ANALYST Byron Olvera NP LAB BLOOD ORDERABLES Fi nal Result Performing Organization Address City/[facility]/ZIP Co de Phone Number [facility] [address] [facility] [place] [address] * Magnesium (10/25/2023 12:34 AM ACCOUNTING METHODS ANALYST) [facility] Magnesium 2.3 1.4 - 2.5 mg/dL [facility] Blood 10/25/2023 12:3 4 AM ACCOUNTING METHODS ANALYST 10/25/2023 12:42 AM ACCOUNTING METHODS ANALYST Byron Olvera NP LAB BLOOD ORDERABLES Fi nal Result Performing Organization Address [facility] de Phone Number [facility] [address] [facility] [place] [address] * (ABNORMAL) Renal function panel (10/25/2023 12:34 AM ACCOUNTING METHODS ANALYST) Pathologist [facility] Sodium 128(L) 135 - 145 mmol/L [facility] Potassium, pl 4.0 3.3 - 4.9 mmol/L [facility] Chloride 86(L) 97 - 110 mmol/L [facility] CO2 21(L) 22 - 32 mmol/L [facility] Anion gap 21(H) 2 - 15 mmol/L [facility] BUN 86(H) 6 - 25 mg/dL [facility] Creatinine 10.57(H) 0.80 - 1.30 mg/dL [facility] Glucose 97 70 - 199 mg/dL [facility] Comment: Interpretive Data Fasting glucose [...] 2022. Calcium 9.0 8.5 - 10.3 mg/dL [facility] Phosphorus, pl 6.5(H) 2.3 - 4.5 mg/dL [facility] Albumin 2.9(L) 3.5 - 5.0 g/dL [facility] Blood 10/25/2023 12:3 4 AM ACCOUNTING METHODS ANALYST 10/25/2023 12:42 AM ACCOUNTING METHODS ANALYST Byron Olvera NP LAB BLOOD ORDERABLES nal Result [facility] [address] Department [place] [address] * (ABNORMAL) CBC without differential (10/25/2023 12:34 AM ACCOUNTING METHODS ANALYST) WBC 8.2 3.8 - 9.9 K/cumm [facility] Hgb 7.8(L) 13.0 - 17.5 g/dL [facility] Hct 24.7(L) 38.9 - 50.3 % [facility] Plt 202 150 - 400 K/cumm [facility] MPV 10.2 9.1 - 12.3 fL [facility] RBC 2.65(L) 4.30 - 5.80 M/cumm [facility] MCV 93.2 81.3 - 96.4 fL [facility] MCH 29.4 27.1 - 33.3 pg [facility] MCHC 31.6(L) 32.3 - 35.7 g/dL [facility] RDW CV 15.9(H) 11.1 - 14.9 % [facility] RDW SD 53.1(H) 35.7 - 48.1 fL [facility] NRBC abs 0.00 0.00 - 0.01 K/cumm [facility] Blood 10/25/2023 12:3 4 AM ACCOUNTING METHODS ANALYST 10/25/2023 12:43 AM ACCOUNTING METHODS ANALYST Byron Olvera NP LAB BLOOD ORDERABLES Fi nal Result [facility] [address] [facility] [place] [address] * (ABNORMAL) Protime-INR (10/25/2023 12:33 AM ACCOUNTING METHODS ANALYST) PT 18.5(H) 10.3 - 13.7 sec [facility] INR 1.62(H) 0.90 - 1.20 [facility] Comment: Interpretive data Oral anticoagulant therapeutic ranges: Venous thromboembolism prophylaxis or treatment: 2.0-3.0 CARDIOLOGY Standard range: 2.0-3.0 High-intensity range: 2.5-3.5 Refer to indication-specific guidelines for appropriate target ranges for prosthetic heart valve replacement. Current interpretive data was last revised on 2019. Blood 10/25/2023 12:3 3 AM ACCOUNTING METHODS ANALYST 10/25/2023 12:40 AM ACCOUNTING METHODS ANALYST us Jaqueline Valero MD LAB BLOOD ORDERABLES Final Result Performing Organization Address City/[facility]/ZIP Co de Phone Number [facility] [address] [facility] [place] [address] * (ABNORMAL) aPTT (10/25/2023 12:33 AM ACCOUNTING METHODS ANALYST) aPTT 58(H) 28 - 38 sec [facility] Comment: Interpretive Data Heparin therapeutic range: 66.0 - 100.0 seconds. Range based on correlation with therapeutic heparin activity range of 0.3 - 0.7 Units/mL. Current interpretive data was last revised on 2023. Blood 10/25/2023 12:3 3 AM ACCOUNTING METHODS ANALYST 10/25/2023 12:40 AM ACCOUNTING METHODS ANALYST Jaqueline Valero MD LAB BLOOD ORDERABLES Final Result [facility] [address] [facility] [place] [address] * POCT glucose (10/24/2023 9:51 PM ACCOUNTING METHODS ANALYST) Glucose, POC 130 70 - 140 mg/dL [facility] Comment: For Glucose values <35 mg/dl when Hematocrit is >60 mg/dl,the test may not accurately detect significant hypoglycemia,and testing in the Laboratory should be considered if clinically indicated. Blood 10/24/2023 9:51 PM ACCOUNTING METHODS ANALYST 10/24/2023 9:51 PM ACCOUNTING METHODS ANALYST Jaqueline Valero MD LAB POCT ORDERABLES - APRIL CE Final Result Performing Organization Address [facility] de Phone Number [facility] [address] [facility] [place] [address] * (ABNORMAL) aPTT (10/24/2023 5:15 PM ACCOUNTING METHODS ANALYST) aPTT 45(H) 28 - 38 sec [facility] Comment: Interpretive Data Heparin therapeutic range: 66.0 - 100.0 seconds. Range based on correlation with therapeutic heparin activity range of 0.3 - 0.7 Units/mL. Current interpretive data was last revised on 2023. Blood 10/24/2023 5:15 PM ACCOUNTING METHODS ANALYST 10/24/2023 5:15 PM ACCOUNTING METHODS ANALYST Jaqueline Valero MD LAB BLOOD ORDERABLES Final Result Performing Organization Address [facility] Co de Phone Number [facility] [address] [facility] [place] [address] * (ABNORMAL) POCT glucose (10/24/2023 4:42 PM ACCOUNTING METHODS ANALYST) Glucose, POC 149(H) 70 - 140 mg/dL [facility] Comment: For Glucose values <35 mg/dl when Hematocrit is >60 mg/dl,the test may not accurately detect significant hypoglycemia,and testing in the Laboratory should be considered if clinically indicated. Blood 10/24/2023 4:42 PM ACCOUNTING METHODS ANALYST 10/24/2023 4:42 PM ACCOUNTING METHODS ANALYST Jaqueline Valero MD LAB POCT ORDERABLES - APRIL CE Final Result Performing Organization Address [facility] de Phone Number [facility] [address] [facility] [place] [address] * POCT glucose (10/24/2023 12:17 PM ACCOUNTING METHODS ANALYST) Glucose, POC 118 70 - 140 mg/dL [facility] Comment: For Glucose values <35 mg/dl when Hematocrit is >60 mg/dl,the test may not accurately detect significant hypoglycemia,and testing in the Laboratory should be considered if clinically indicated. Blood 10/24/2023 12:1 7 PM ACCOUNTING METHODS ANALYST 10/24/2023 12:17 PM ACCOUNTING METHODS ANALYST Jaqueline Valero MD LAB POCT ORDERABLES - APRIL CE Final Result Performing Organization Address [facility] de Phone Number [facility] [address] [facility] [place] [address] * (ABNORMAL) POCT glucose (10/24/2023 7:44 AM ACCOUNTING METHODS ANALYST) Glucose, POC 202(H) 70 - 140 mg/dL [facility] Comment: For Glucose values <35 mg/dl when Hematocrit is >60 mg/dl,the test may not accurately detect significant hypoglycemia,and testing in the Laboratory should be considered if clinically indicated. Blood 10/24/2023 7:44 AM ACCOUNTING METHODS ANALYST 10/24/2023 7:44 AM ACCOUNTING METHODS ANALYST Jaqueline Valero MD LAB POCT ORDERABLES - APRIL CE Final Result Performing Organization Address [facility] de Phone Number [facility] [address] [place] [address] * XR Chest 1 View - Portable - in AM (10/24/2023 5:54 AM ACCOUNTING METHODS ANALYST) Anatomical Region Laterality Modality Body, Chest N/A Computed Radiogr aphy 10/24/2023 10:3 4 AM ACCOUNTING METHODS ANALYST Impressions 10/24/2023 10:34 AM ACCOUNTING METHODS ANALYST Comparison is made to single view chest [...] Tania Malone M.D. Narrative 10/24/2023 10:34 AM ACCOUNTING METHODS ANALYST EXAMINATION: 1 view chest radiograph Procedure Note [...] signed by: Tania Malone M.D. Byron Olvera ANIMAL HUSBANDRY TECHNICIAN IMG XR PROCEDURES Final Result * eGFR (10/24/2023 1:03 AM ACCOUNTING METHODS ANALYST) eGFR 5 mL/min/1. 73 m2 [facility] Comment: Interpretive Data Reference Interval [...] last reviewed 2021. Blood 10/24/2023 1:03 AM ACCOUNTING METHODS ANALYST 10/24/2023 1:13 AM ACCOUNTING METHODS ANALYST Byron Olvera NP LAB BLOOD ORDERABLES Fi nal Result Performing Organization Address [facility] de Phone Number [facility] [address] [place] [address] * (ABNORMAL) Protime-INR (10/24/2023 1:03 AM ACCOUNTING METHODS ANALYST) PT 18.2(H) 10.3 - 13.7 sec [facility] INR 1.60(H) 0.90 - 1.20 [facility] Comment: Interpretive data Oral anticoagulant therapeutic ranges: Venous thromboembolism prophylaxis or treatment: 2.0-3.0 CARDIOLOGY Standard range: 2.0-3.0 High-intensity range: 2.5-3.5 Refer to indication-specific guidelines for appropriate target ranges for prosthetic heart valve replacement. Current interpretive data was last revised on 2019. Blood 10/24/2023 1:03 AM ACCOUNTING METHODS ANALYST 10/24/2023 1:13 AM ACCOUNTING METHODS ANALYST Byron Olvera NP LAB BLOOD ORDERABLES Fi nal Result Performing Organization Address [facility] Co de Phone Number [facility] [address] [employer] [place], [place] [id number] * Magnesium (10/24/2023 1:03 AM ACCOUNTING METHODS ANALYST) Magnesium 2.2 1.4 - 2.5 mg/dL [facility] Blood 10/24/2023 1:03 AM ACCOUNTING METHODS ANALYST 10/24/2023 1:13 AM ACCOUNTING METHODS ANALYST us Byron Olvera ANIMAL HUSBANDRY TECHNICIAN LAB BLOOD ORDERABLES Fi nal Result [facility] [address] [place] [address] * (ABNORMAL) Renal function panel (10/24/2023 1:03 AM ACCOUNTING METHODS ANALYST) Pathologist [facility] Sodium 127(L) 135 - 145 mmol/L [facility] Potassium, pl 4.2 3.3 - 4.9 mmol/L [facility] Chloride 86(L) 97 - 110 mmol/L [facility] CO2 21(L) 22 - 32 mmol/L [facility] Anion gap 20(H) 2 - 15 mmol/L [facility] BUN 90(H) 6 - 25 mg/dL [facility] Creatinine 11.24(H) 0.80 - 1.30 mg/dL [facility] Glucose 143 70 - 199 mg/dL [facility] Comment: Interpretive Data Fasting glucose [...] 2022. Calcium 8.6 8.5 - 10.3 mg/dL [facility] Phosphorus, pl 6.1(H) 2.3 - 4.5 mg/dL [facility] Albumin 2.7(L) 3.5 - 5.0 g/dL [facility] Blood 10/24/2023 1:03 AM ACCOUNTING METHODS ANALYST 10/24/2023 1:13 AM ACCOUNTING METHODS ANALYST Byron Olvera NP LAB BLOOD ORDERABLES Fi nal Result Performing Organization Address [facility] Co de Phone Number [facility] [address] [place] [employer] [place] [address] * (ABNORMAL) CBC without differential (10/24/2023 1:03 AM ACCOUNTING METHODS ANALYST) [facility] WBC 9.3 3.8 - 9.9 K/cumm [facility] Hgb 7.6(L) 13.0 - 17.5 g/dL [facility] Hct 24.4(L) 38.9 - 50.3 % [facility] Plt 184 150 - 400 K/cumm [facility] MPV 10.5 9.1 - 12.3 fL [facility] RBC 2.58(L) 4.30 - 5.80 M/cumm [facility] MCV 94.6 81.3 - 96.4 fL [facility] MCH 29.5 27.1 - 33.3 pg [facility] MCHC 31.1(L) 32.3 - 35.7 g/dL [facility] RDW CV 15.9(H) 11.1 - 14.9 % [facility] RDW SD 53.1(H) 35.7 - 48.1 fL [facility] NRBC abs 0.00 0.00 - 0.01 K/cumm [facility] Blood 10/24/2023 1:03 AM ACCOUNTING METHODS ANALYST 10/24/2023 1:13 AM ACCOUNTING METHODS ANALYST Byron Olvera NP LAB BLOOD ORDERABLES Fi nal Result Performing Organization Address [facility]/ZIP Co de Phone Number [facility] [address] [place] [place] [address] * POCT glucose (10/23/2023 11:14 PM ACCOUNTING METHODS ANALYST) Pathologist [facility] Glucose, POC 128 70 - 140 mg/dL [facility] Comment: For Glucose values <35 mg/dl when Hematocrit is >60 mg/dl,the test may not accurately detect significant hypoglycemia,and testing in the Laboratory should be considered if clinically indicated. Blood 10/23/2023 11:1 4 PM ACCOUNTING METHODS ANALYST 10/23/2023 11:14 PM ACCOUNTING METHODS ANALYST Jaqueline Valero MD LAB POCT ORDERABLES - APRIL CE Final Result Performing Organization Address [facility] de Phone Number [facility] [address] [place] [address] * POCT glucose (10/23/2023 10:43 PM ACCOUNTING METHODS ANALYST) Glucose, POC 92 70 - 140 mg/dL [facility] Comment: For Glucose values <35 mg/dl when Hematocrit is >60 mg/dl,the test may not accurately detect significant hypoglycemia,and testing in the Laboratory should be considered if clinically indicated. Blood 10/23/2023 10:4 3 PM ACCOUNTING METHODS ANALYST 10/23/2023 10:43 PM ACCOUNTING METHODS ANALYST Result [facility] Jaqueline Valero MD LAB POCT ORDERABLES - APRIL CE Final Result Performing Organization Address [facility] de Phone Number [facility] [address] [place] [address] * POCT glucose (10/23/2023 5:12 PM ACCOUNTING METHODS ANALYST) Glucose, POC 113 70 - 140 mg/dL [facility] Comment: For Glucose values <35 mg/dl when Hematocrit is >60 mg/dl,the test may not accurately detect significant hypoglycemia,and testing in the Laboratory should be considered if clinically indicated. Blood 10/23/2023 5:12 PM ACCOUNTING METHODS ANALYST 10/23/2023 5:12 PM ACCOUNTING METHODS ANALYST Jaqueline Valero MD LAB POCT ORDERABLES - APRIL CE Final Result Performing Organization Address [facility]/ZIP Co de Phone Number [facility] [address] [facility] [place] [address] * (ABNORMAL) POCT glucose (10/23/2023 12:08 PM ACCOUNTING METHODS ANALYST) Glucose, POC 203(H) 70 - 140 mg/dL [facility] Comment: For Glucose values <35 mg/dl when Hematocrit is >60 mg/dl,the test may not accurately detect significant hypoglycemia,and testing in the Laboratory should be considered if clinically indicated. Blood 10/23/2023 12:0 8 PM ACCOUNTING METHODS ANALYST 10/23/2023 12:08 PM ACCOUNTING METHODS ANALYST Jaqueline Valero MD LAB POCT ORDERABLES - APRIL CE Final Result Performing Organization Address [facility] Co de Phone Number [facility] [address] [facility] [place] [address] * (ABNORMAL) POCT glucose (10/23/2023 7:54 AM ACCOUNTING METHODS ANALYST) Glucose, POC 205(H) 70 - 140 mg/dL [facility] Comment: For Glucose values <35 mg/dl when Hematocrit is >60 mg/dl,the test may not accurately detect significant hypoglycemia,and testing in the Laboratory should be considered if clinically indicated. Blood 10/23/2023 7:54 AM ACCOUNTING METHODS ANALYST 10/23/2023 7:54 AM ACCOUNTING METHODS ANALYST Jaqueline Valero MD LAB POCT ORDERABLES - APRIL CE Final Result Performing Organization Address [facility] Co de Phone Number [facility] [address] [facility] [place] [address] * XR Chest 1 View - Portable - in AM (10/23/2023 6:24 AM ACCOUNTING METHODS ANALYST) Anatomical Region Laterality Modality Body, Chest N/A Computed Radiogr aphy 10/23/2023 7:12 AM ACCOUNTING METHODS ANALYST Impressions 10/23/2023 7:12 AM ACCOUNTING METHODS ANALYST Comparison is made to 10/22/2023. ??There are [...] Manuel Bruno M.D. Narrative 10/23/2023 7:12 AM ACCOUNTING METHODS ANALYST Examination: Chest one view Procedure Note Manuel [...] signed by: Manuel Bruno M.D. Byron Olvera ANIMAL HUSBANDRY TECHNICIAN IMG XR PROCEDURES Final Result * eGFR (10/23/2023 1:53 AM ACCOUNTING METHODS ANALYST) eGFR 5 mL/min/1. 73 m2 [facility] Comment: Interpretive Data Reference Interval [...] last reviewed 2021. Blood 10/23/2023 1:53 AM ACCOUNTING METHODS ANALYST 10/23/2023 2:08 AM ACCOUNTING METHODS ANALYST Byron Olvera NP LAB BLOOD ORDERABLES Fi nal Result Performing Organization Address [facility] de Phone Number [facility] [address] [place] [employer] [place] [address] * (ABNORMAL) Protime-INR (10/23/2023 1:53 AM ACCOUNTING METHODS ANALYST) PT 24.9(H) 10.3 - 13.7 sec [facility] INR 2.18(H) 0.90 - 1.20 [facility] Comment: Interpretive data Oral anticoagulant therapeutic ranges: Venous thromboembolism prophylaxis or treatment: 2.0-3.0 CARDIOLOGY Standard range: 2.0-3.0 High-intensity range: 2.5-3.5 Refer to indication-specific guidelines for appropriate target ranges for prosthetic heart valve replacement. Current interpretive data was last revised on 2019. Blood 10/23/2023 1:53 AM ACCOUNTING METHODS ANALYST 10/23/2023 2:08 AM ACCOUNTING METHODS ANALYST Byron Olvera NP LAB BLOOD ORDERABLES Fi nal Result Performing Organization Address [facility] Co de Phone Number [facility] [address] [facility] [employer] [place], [place] [id number] * Magnesium (10/23/2023 1:53 AM ACCOUNTING METHODS ANALYST) Magnesium 2.4 1.4 - 2.5 mg/dL [facility] Blood 10/23/2023 1:53 AM ACCOUNTING METHODS ANALYST 10/23/2023 2:08 AM ACCOUNTING METHODS ANALYST us Byron Olvera ANIMAL HUSBANDRY TECHNICIAN LAB BLOOD ORDERABLES Fi nal Result [facility] [address] Department [place] [address] * (ABNORMAL) Renal function panel (10/23/2023 1:53 AM ACCOUNTING METHODS ANALYST) [facility] Sodium 132(L) 135 - 145 mmol/L [facility] Potassium, pl 4.3 3.3 - 4.9 mmol/L [facility] Chloride 91(L) 97 - 110 mmol/L [facility] CO2 20(L) 22 - 32 mmol/L [facility] Anion gap 21(H) 2 - 15 mmol/L [facility] BUN 91(H) 6 - 25 mg/dL [facility] Creatinine 11.59(H) 0.80 - 1.30 mg/dL [facility] Glucose 176 70 - 199 mg/dL [facility] Comment: Interpretive Data Fasting glucose [...] 2022. Calcium 9.0 8.5 - 10.3 mg/dL [facility] Phosphorus, pl 6.2(H) 2.3 - 4.5 mg/dL [facility] Albumin 2.6(L) 3.5 - 5.0 g/dL [facility] Blood 10/23/2023 1:53 AM ACCOUNTING METHODS ANALYST 10/23/2023 2:08 AM ACCOUNTING METHODS ANALYST Byron Olvera ANIMAL HUSBANDRY TECHNICIAN LAB BLOOD ORDERABLES Fi nal Result Performing Organization Address City/[facility]/ZIP Co de Phone Number [facility] [address] [employer] [place], [place] [id number] * (ABNORMAL) CBC without differential (10/23/2023 1:53 AM ACCOUNTING METHODS ANALYST) WBC 11.7(H) 3.8 - 9.9 K/cumm [facility] Hgb 8.5(L) 13.0 - 17.5 g/dL [facility] Hct 27.3(L) 38.9 - 50.3 % [facility] Plt 207 150 - 400 K/cumm [facility] MPV 10.5 9.1 - 12.3 fL [facility] RBC 2.86(L) 4.30 - 5.80 M/cumm [facility] MCV 95.5 81.3 - 96.4 fL [facility] MCH 29.7 27.1 - 33.3 pg [facility] MCHC 31.1(L) 32.3 - 35.7 g/dL [facility] RDW CV 15.9(H) 11.1 - 14.9 % [facility] RDW SD 53.6(H) 35.7 - 48.1 fL [facility] NRBC abs 0.00 0.00 - 0.01 K/cumm [facility] Blood 10/23/2023 1:53 AM ACCOUNTING METHODS ANALYST 10/23/2023 2:08 AM ACCOUNTING METHODS ANALYST Byron Olvera NP LAB BLOOD ORDERABLES Fi nal Result [facility] [address] [employer] [place], [place] [id number] * (ABNORMAL) POCT glucose (10/22/2023 11:55 PM ACCOUNTING METHODS ANALYST) Glucose, POC 142(H) 70 - 140 mg/dL [facility] Comment: For Glucose values <35 mg/dl when Hematocrit is >60 mg/dl,the test may not accurately detect significant hypoglycemia,and testing in the Laboratory should be considered if clinically indicated. Blood 10/22/2023 11:5 5 PM ACCOUNTING METHODS ANALYST 10/22/2023 11:55 PM ACCOUNTING METHODS ANALYST Jaqueline Valero MD LAB POCT ORDERABLES - APRIL CE Final Result Performing Organization Address [facility] de Phone Number [facility] [address] [place] [address] * (ABNORMAL) POCT glucose (10/22/2023 9:12 PM ACCOUNTING METHODS ANALYST) Glucose, POC 161(H) 70 - 140 mg/dL [facility] Comment: For Glucose values <35 mg/dl when Hematocrit is >60 mg/dl,the test may not accurately detect significant hypoglycemia,and testing in the Laboratory should be considered if clinically indicated. Blood 10/22/2023 9:12 PM ACCOUNTING METHODS ANALYST 10/22/2023 9:12 PM ACCOUNTING METHODS ANALYST Result [facility] Jaqueline Valero MD LAB POCT ORDERABLES - APRIL CE Final Result Performing Organization Address [facility] de Phone Number [facility] [address] [place] [address] * POCT glucose (10/22/2023 5:22 PM ACCOUNTING METHODS ANALYST) Glucose, POC 102 70 - 140 mg/dL [facility] Comment: For Glucose values <35 mg/dl when Hematocrit is >60 mg/dl,the test may not accurately detect significant hypoglycemia,and testing in the Laboratory should be considered if clinically indicated. Blood 10/22/2023 5:22 PM ACCOUNTING METHODS ANALYST 10/22/2023 5:22 PM ACCOUNTING METHODS ANALYST Jaqueline Valero MD LAB POCT ORDERABLES - APRIL CE Final Result Performing Organization Address [facility] de Phone Number [facility] [address] [facility] [place] [address] * (ABNORMAL) POCT glucose (10/22/2023 12:49 PM ACCOUNTING METHODS ANALYST) Glucose, POC 177(H) 70 - 140 mg/dL [facility] Comment: For Glucose values <35 mg/dl when Hematocrit is >60 mg/dl,the test may not accurately detect significant hypoglycemia,and testing in the Laboratory should be considered if clinically indicated. Blood 10/22/2023 12:4 9 PM ACCOUNTING METHODS ANALYST 10/22/2023 12:49 PM ACCOUNTING METHODS ANALYST Jaqueline Valero MD LAB POCT ORDERABLES - APRIL CE Final Result Performing Organization Address [facility] de Phone Number [facility] [address] [facility] [place] [address] * (ABNORMAL) POCT glucose (10/22/2023 8:12 AM ACCOUNTING METHODS ANALYST) Glucose, POC 158(H) 70 - 140 mg/dL [facility] Comment: For Glucose values <35 mg/dl when Hematocrit is >60 mg/dl,the test may not accurately detect significant hypoglycemia,and testing in the Laboratory should be considered if clinically indicated. Blood 10/22/2023 8:12 AM ACCOUNTING METHODS ANALYST 10/22/2023 8:12 AM ACCOUNTING METHODS ANALYST Jaqueline Valero MD LAB POCT ORDERABLES - APRIL CE Final Result Performing Organization Address [facility] Co de Phone Number [facility] [address] [place] [address] * XR Chest 1 View - Portable - in AM (10/22/2023 6:38 AM ACCOUNTING METHODS ANALYST) Anatomical Region Laterality Modality Body, Chest N/A Computed Radiogr aphy 10/22/2023 8:02 AM ACCOUNTING METHODS ANALYST Impressions 10/22/2023 8:02 AM ACCOUNTING METHODS ANALYST Comparison is made to single view chest radiograph dated 10/21/2023. ??Sternotomy wires and sternal plates are unchanged. Right internal jugular central venous catheter tip overlies the superior vena cava. Persistent small lung volumes with bilateral subsegmental atelectasis. ??Trace left pleural effusion. ??No pneumothorax. Cardiomediastinal silhouette is stable. Electronically signed by: Tania Malone M.D. Narrative 10/22/2023 8:02 AM ACCOUNTING METHODS ANALYST EXAMINATION: 1 view chest radiograph Procedure Note [...] signed by: Tania Malone M.D. Byron Olvera ANIMAL HUSBANDRY TECHNICIAN IMG XR PROCEDURES Final Result * eGFR (10/22/2023 12:31 AM ACCOUNTING METHODS ANALYST) eGFR 5 mL/min/1. 73 m2 [facility] Comment: Interpretive Data Reference Interval [...] reviewed 2021. Blood 10/22/2023 12:3 1 AM ACCOUNTING METHODS ANALYST 10/22/2023 1:00 AM ACCOUNTING METHODS ANALYST Byron Olvera NP LAB BLOOD ORDERABLES Fi nal Result Performing Organization Address [facility] Co de Phone Number [facility] [address] [employer] [place] [address] * (ABNORMAL) Protime-INR (10/22/2023 12:31 AM ACCOUNTING METHODS ANALYST) PT 48.4(H) 10.3 - 13.7 sec [facility] INR 4.25(H) 0.90 - 1.20 [facility] Comment: Interpretive data Oral anticoagulant therapeutic ranges: Venous thromboembolism prophylaxis or treatment: 2.0-3.0 CARDIOLOGY Standard range: 2.0-3.0 High-intensity range: 2.5-3.5 Refer to indication-specific guidelines for appropriate target ranges for prosthetic heart valve replacement. Current interpretive data was last revised on 2019. Blood 10/22/2023 12:3 1 AM ACCOUNTING METHODS ANALYST 10/22/2023 1:00 AM ACCOUNTING METHODS ANALYST Byron Olvera NP LAB BLOOD ORDERABLES Fi nal Result Performing Organization Address [facility] Co de Phone Number [facility] [address] [employer] [place] [address] * Magnesium (10/22/2023 12:31 AM ACCOUNTING METHODS ANALYST) Magnesium 2.4 1.4 - 2.5 mg/dL [facility] Blood 10/22/2023 12:3 1 AM ACCOUNTING METHODS ANALYST 10/22/2023 1:00 AM ACCOUNTING METHODS ANALYST Byron Olvera NP LAB BLOOD ORDERABLES Fi nal Result Performing Organization Address City/[facility]/ZIP Co de Phone Number [facility] [address] [place] [address] * (ABNORMAL) Renal function panel (10/22/2023 12:31 AM ACCOUNTING METHODS ANALYST) Sodium 134(L) 135 - 145 mmol/L [facility] Potassium, pl 4.3 3.3 - 4.9 mmol/L [facility] Chloride 93(L) 97 - 110 mmol/L [facility] CO2 21(L) 22 - 32 mmol/L [facility] Anion gap 20(H) 2 - 15 mmol/L [facility] BUN 87(H) 6 - 25 mg/dL [facility] Creatinine 11.33(H) 0.80 - 1.30 mg/dL [facility] Glucose 212(H) 70 - 199 mg/dL [facility] Comment: Interpretive Data Fasting glucose [...] 2022. Calcium 8.8 8.5 - 10.3 mg/dL [facility] Phosphorus, pl 7.3(H) 2.3 - 4.5 mg/dL [facility] Albumin 2.8(L) 3.5 - 5.0 g/dL [facility] Blood 10/22/2023 12:3 1 AM ACCOUNTING METHODS ANALYST 10/22/2023 1:00 AM ACCOUNTING METHODS ANALYST Byron Olvera NP LAB BLOOD ORDERABLES Fi nal Result Performing Organization Address [facility]/ZIP Co de Phone Number [facility] [address] [place] [address] * (ABNORMAL) CBC without differential (10/22/2023 12:31 AM ACCOUNTING METHODS ANALYST) [facility] WBC 10.6(H) 3.8 - 9.9 K/cumm [facility] Hgb 8.5(L) 13.0 - 17.5 g/dL [facility] Hct 27.2(L) 38.9 - 50.3 % [facility] Plt 201 150 - 400 K/cumm [facility] MPV 11.2 9.1 - 12.3 fL [facility] RBC 2.88(L) 4.30 - 5.80 M/cumm [facility] MCV 94.4 81.3 - 96.4 fL [facility] MCH 29.5 27.1 - 33.3 pg [facility] MCHC 31.3(L) 32.3 - 35.7 g/dL [facility] RDW CV 15.8(H) 11.1 - 14.9 % [facility] RDW SD 54.0(H) 35.7 - 48.1 fL [facility] NRBC abs 0.02(H) 0.00 - 0.01 K/cumm [facility] Blood 10/22/2023 12:3 1 AM ACCOUNTING METHODS ANALYST 10/22/2023 1:00 AM ACCOUNTING METHODS ANALYST Byron Olvera NP LAB BLOOD ORDERABLES Fi nal Result [facility] [address] [place] [address] * (ABNORMAL) POCT glucose (10/21/2023 9:31 PM ACCOUNTING METHODS ANALYST) [facility] Glucose, POC 249(H) 70 - 140 mg/dL [facility] Comment: For Glucose values <35 mg/dl when Hematocrit is >60 mg/dl,the test may not accurately detect significant hypoglycemia,and testing in the Laboratory should be considered if clinically indicated. Blood 10/21/2023 9:31 PM ACCOUNTING METHODS ANALYST 10/21/2023 9:31 PM ACCOUNTING METHODS ANALYST Jaqueline Valero MD LAB POCT ORDERABLES - APRIL CE Final Result Performing Organization Address [facility] de Phone Number [facility] [address] [facility] [place] [address] * (ABNORMAL) POCT glucose (10/21/2023 5:16 PM ACCOUNTING METHODS ANALYST) Glucose, POC 166(H) 70 - 140 mg/dL [facility] Comment: For Glucose values <35 mg/dl when Hematocrit is >60 mg/dl,the test may not accurately detect significant hypoglycemia,and testing in the Laboratory should be considered if clinically indicated. Blood 10/21/2023 5:16 PM ACCOUNTING METHODS ANALYST 10/21/2023 5:16 PM ACCOUNTING METHODS ANALYST Jaqueline Valero MD LAB POCT ORDERABLES - APRIL CE Final Result Performing Organization Address [facility] de Phone Number [facility] [address] [facility] [place] [address] * (ABNORMAL) POCT glucose (10/21/2023 12:29 PM ACCOUNTING METHODS ANALYST) Glucose, POC 266(H) 70 - 140 mg/dL [facility] Comment: For Glucose values <35 mg/dl when Hematocrit is >60 mg/dl,the test may not accurately detect significant hypoglycemia,and testing in the Laboratory should be considered if clinically indicated. Blood 10/21/2023 12:2 9 PM ACCOUNTING METHODS ANALYST 10/21/2023 12:29 PM ACCOUNTING METHODS ANALYST Jaqueline Valero MD LAB POCT ORDERABLES - APRIL CE Final Result Performing Organization Address [facility] de Phone Number [facility] [address] Department [place] [address] * (ABNORMAL) POCT glucose (10/21/2023 8:06 AM ACCOUNTING METHODS ANALYST) Glucose, POC 294(H) 70 - 140 mg/dL [facility] Comment: For Glucose values <35 mg/dl when Hematocrit is >60 mg/dl,the test may not accurately detect significant hypoglycemia,and testing in the Laboratory should be considered if clinically indicated. Blood 10/21/2023 8:06 AM ACCOUNTING METHODS ANALYST 10/21/2023 8:06 AM ACCOUNTING METHODS ANALYST us Jaqueline Valero MD LAB POCT ORDERABLES - APRIL CE Final Result [facility] [address] [place] [address] * XR Chest 1 View - Portable - in AM (10/21/2023 6:51 AM ACCOUNTING METHODS ANALYST) Anatomical Region Laterality Modality Body, Chest N/A Computed Radiogr aphy 10/21/2023 7:17 AM ACCOUNTING METHODS ANALYST Impressions 10/21/2023 7:17 AM ACCOUNTING METHODS ANALYST Small left effusion and bilateral lower lobe atelectasis. Electronically signed by: Eric Cuevas M.D. Narrative 10/21/2023 7:17 AM ACCOUNTING METHODS ANALYST EXAMINATION: XR CHEST 1 VIEW DATE: 10/21/2023 [...] by: Eric Cuevas M.D. us Byron Olvera ANIMAL HUSBANDRY TECHNICIAN IMG XR PROCEDURES Final Result * ECG 12 lead (10/21/2023 4:39 AM ACCOUNTING METHODS ANALYST) 10/21/2023 4:39 AM ACCOUNTING METHODS ANALYST Narrative [facility] - 10/21/2023 8:34 AM ACCOUNTING METHODS ANALYST Vent Rate: 100 bpm RR Interval: 599 msec VA Interval: 0 msec QRS Duration: 145 msec QT Interval: 394 msec QTC Interval: 451 msec P-R-T [place]: 0 - -9 - 132 degrees IMPRESSION: NORMAL SINUS RHYTHM [REASON: NORMAL P AXIS, VA, RATE \T\ RHYTHM] LEFT BUNDLE BRANCH BLOCK OCCASIONAL PVC Electronically Signed By: Jesus Huerta MD us Linda Oliva NP ECG ORDERABLES Final Result [facility] * eGFR (10/21/2023 1:40 AM ACCOUNTING METHODS ANALYST) eGFR 5 mL/min/1. 73 m2 [facility] Comment: Interpretive Data Reference Interval Normal ?>/= [...] last reviewed 2021. Blood 10/21/2023 1:40 AM ACCOUNTING METHODS ANALYST 10/21/2023 1:59 AM ACCOUNTING METHODS ANALYST Byron Olvera NP LAB BLOOD ORDERABLES Fi nal Result Performing Organization Address [facility] de Phone Number [facility] [address] Department [place] [address] * (ABNORMAL) Protime-INR (10/21/2023 1:40 AM ACCOUNTING METHODS ANALYST) PT 54.3(H) 10.3 - 13.7 sec [facility] INR 4.76(H) 0.90 - 1.20 [facility] Comment: Interpretive data Oral anticoagulant therapeutic ranges: Venous thromboembolism prophylaxis or treatment: 2.0-3.0 CARDIOLOGY Standard range: 2.0-3.0 High-intensity range: 2.5-3.5 Refer to indication-specific guidelines for appropriate target ranges for prosthetic heart valve replacement. Current interpretive data was last revised on 2019. Blood 10/21/2023 1:40 AM ACCOUNTING METHODS ANALYST 10/21/2023 1:58 AM ACCOUNTING METHODS ANALYST Byron Olvera NP LAB BLOOD ORDERABLES Fi nal Result Performing Organization Address [facility] Co de Phone Number [facility] [address] Department [place] [address] * Magnesium (10/21/2023 1:40 AM ACCOUNTING METHODS ANALYST) Magnesium 2.4 1.4 - 2.5 mg/dL [facility] Blood 10/21/2023 1:40 AM ACCOUNTING METHODS ANALYST 10/21/2023 1:59 AM ACCOUNTING METHODS ANALYST Byron Olvera NP LAB BLOOD ORDERABLES Fi nal Result Performing Organization Address City/[facility]/ZIP Co de Phone Number [facility] [address] [place] [address] * (ABNORMAL) Renal function panel (10/21/2023 1:40 AM ACCOUNTING METHODS ANALYST) Sodium 134(L) 135 - 145 mmol/L [facility] Potassium, pl 4.5 3.3 - 4.9 mmol/L [facility] Chloride 93(L) 97 - 110 mmol/L [facility] CO2 22 22 - 32 mmol/L [facility] Anion gap 19(H) 2 - 15 mmol/L [facility] BUN 81(H) 6 - 25 mg/dL [facility] Creatinine 11.40(H) 0.80 - 1.30 mg/dL [facility] Glucose 289(H) 70 - 199 mg/dL [facility] Comment: Interpretive Data Fasting glucose [...] 2022. Calcium 8.6 8.5 - 10.3 mg/dL [facility] Phosphorus, pl 8.2(H) 2.3 - 4.5 mg/dL [facility] Albumin 2.7(L) 3.5 - 5.0 g/dL [facility] Blood 10/21/2023 1:40 AM ACCOUNTING METHODS ANALYST 10/21/2023 1:59 AM ACCOUNTING METHODS ANALYST Byron Olvera NP LAB BLOOD ORDERABLES Fi nal Result Performing Organization Address City/[facility]/ZIP Co de Phone Number [facility] [address] [place] [employer] [place] [address] * (ABNORMAL) CBC without differential (10/21/2023 1:40 AM ACCOUNTING METHODS ANALYST) [facility] WBC 8.2 3.8 - 9.9 K/cumm [facility] Hgb 8.0(L) 13.0 - 17.5 g/dL [facility] Hct 25.6(L) 38.9 - 50.3 % [facility] Plt 185 150 - 400 K/cumm [facility] MPV 11.1 9.1 - 12.3 fL [facility] RBC 2.72(L) 4.30 - 5.80 M/cumm [facility] MCV 94.1 81.3 - 96.4 fL [facility] MCH 29.4 27.1 - 33.3 pg [facility] MCHC 31.3(L) 32.3 - 35.7 g/dL [facility] RDW CV 16.5(H) 11.1 - 14.9 % [facility] RDW SD 55.9(H) 35.7 - 48.1 fL [facility] NRBC abs 0.02(H) 0.00 - 0.01 K/cumm [facility] Blood 10/21/2023 1:40 AM ACCOUNTING METHODS ANALYST 10/21/2023 1:59 AM ACCOUNTING METHODS ANALYST Byron Olvera NP LAB BLOOD ORDERABLES Fi nal Result [facility] [address] [place] [address] * (ABNORMAL) POCT glucose (10/20/2023 9:24 PM ACCOUNTING METHODS ANALYST) [facility] Glucose, POC 234(H) 70 - 140 mg/dL [facility] Comment: For Glucose values <35 mg/dl when Hematocrit is >60 mg/dl,the test may not accurately detect significant hypoglycemia,and testing in the Laboratory should be considered if clinically indicated. Blood 10/20/2023 9:24 PM ACCOUNTING METHODS ANALYST 10/20/2023 9:24 PM ACCOUNTING METHODS ANALYST us Jaqueline Valero MD LAB POCT ORDERABLES - APRIL CE Final Result Performing Organization Address [facility] Co de Phone Number [facility] [address] [facility] [place] [address] * POCT glucose (10/20/2023 5:24 PM ACCOUNTING METHODS ANALYST) [facility] Signature Glucose, POC 89 70 - 140 mg/dL [facility] Comment: For Glucose values <35 mg/dl when Hematocrit is >60 mg/dl,the test may not accurately detect significant hypoglycemia,and testing in the Laboratory should be considered if clinically indicated. Blood 10/20/2023 5:24 PM ACCOUNTING METHODS ANALYST 10/20/2023 5:24 PM ACCOUNTING METHODS ANALYST us Jaqueline Valero MD LAB POCT ORDERABLES - APRIL CE Final Result Performing Organization Address [facility] Co de Phone Number [facility] [address] Department [place] [employer] [place] [place] [address] * Critical Care (10/20/2023 12:45 PM ACCOUNTING METHODS ANALYST) Narrative Kirsten Burns MD - 10/20/2023 12:45 PM ACCOUNTING METHODS ANALYST Byron Olvera NP ? 10/21/2023 10:22 AM Critical Care Performed by: Byron Olvera NP Authorized by: Byron Olvera NP ?? CRITICAL CARE: ??Team: ??[facility] CT ??Shift: ??AM ??Level of Billing: ??Subsequent [...] plan with the patient's team and other medical/web consultant staff. This time was in addition to and separate from care provided by other practitioners on this day of service. ?? Byron Olvera NP IN CLINIC/BEDSIDE ORDER ROVERTO Final Result * POCT glucose (10/20/2023 11:47 AM ACCOUNTING METHODS ANALYST) Glucose, POC 115 70 - 140 mg/dL [facility] Comment: For Glucose values <35 mg/dl when Hematocrit is >60 mg/dl,the test may not accurately detect significant hypoglycemia,and testing in the Laboratory should be considered if clinically indicated. Blood 10/20/2023 11:4 7 AM ACCOUNTING METHODS ANALYST 10/20/2023 11:47 AM ACCOUNTING METHODS ANALYST Result [facility] Jaqueline Valero MD LAB POCT ORDERABLES - APRIL CE Final Result Performing Organization Address [facility] de Phone Number [facility] [address] [facility] [place] [address] * POCT glucose (10/20/2023 10:09 AM ACCOUNTING METHODS ANALYST) Glucose, POC 87 70 - 140 mg/dL [facility] Comment: For Glucose values <35 mg/dl when Hematocrit is >60 mg/dl,the test may not accurately detect significant hypoglycemia,and testing in the Laboratory should be considered if clinically indicated. Blood 10/20/2023 10:0 9 AM ACCOUNTING METHODS ANALYST 10/20/2023 10:09 AM ACCOUNTING METHODS ANALYST Result [facility] Jaqueline Valero MD LAB POCT ORDERABLES - APRIL CE Final Result Performing Organization Address [facility] de Phone Number [facility] [address] [facility] [place] [address] * POCT glucose (10/20/2023 9:15 AM ACCOUNTING METHODS ANALYST) Glucose, POC 102 70 - 140 mg/dL [facility] Comment: For Glucose values <35 mg/dl when Hematocrit is >60 mg/dl,the test may not accurately detect significant hypoglycemia,and testing in the Laboratory should be considered if clinically indicated. Blood 10/20/2023 9:15 AM ACCOUNTING METHODS ANALYST 10/20/2023 9:15 AM ACCOUNTING METHODS ANALYST Result [facility] Jaqueline Valero MD LAB POCT ORDERABLES - APRIL CE Final Result Performing Organization Address [facility] Co de Phone Number [facility] [address] [facility] [place] [address] * POCT glucose (10/20/2023 7:23 AM ACCOUNTING METHODS ANALYST) Glucose, POC 109 70 - 140 mg/dL [facility] Comment: For Glucose values <35 mg/dl when Hematocrit is >60 mg/dl,the test may not accurately detect significant hypoglycemia,and testing in the Laboratory should be considered if clinically indicated. Blood 10/20/2023 7:23 AM ACCOUNTING METHODS ANALYST 10/20/2023 7:23 AM ACCOUNTING METHODS ANALYST Jaqueline Valero MD LAB POCT ORDERABLES - APRIL CE Final Result Performing Organization Address [facility] Co de Phone Number [facility] [address] Department [place] [employer] [place] [address] * XR Chest 1 View - Portable - in AM (10/20/2023 6:37 AM ACCOUNTING METHODS ANALYST) Anatomical Region Laterality Modality Body, Chest N/A Computed Radiogr aphy 10/20/2023 7:51 AM ACCOUNTING METHODS ANALYST Impressions 10/20/2023 7:51 AM ACCOUNTING METHODS ANALYST Comparison is made to prior chest radiograph(s) [...] Vicki Suh M.D. Narrative 10/20/2023 7:51 AM ACCOUNTING METHODS ANALYST EXAMINATION: XR CHEST 1 VIEW Procedure Note [...] signed by: Vicki Suh M.D. Byron Olvera ANIMAL HUSBANDRY TECHNICIAN IMG XR PROCEDURES Final Result * POCT glucose (10/20/2023 6:12 AM ACCOUNTING METHODS ANALYST) Glucose, POC 119 70 - 140 mg/dL [facility] Comment: For Glucose values <35 mg/dl when Hematocrit is >60 mg/dl,the test may not accurately detect significant hypoglycemia,and testing in the Laboratory should be considered if clinically indicated. Blood 10/20/2023 6:12 AM ACCOUNTING METHODS ANALYST 10/20/2023 6:12 AM ACCOUNTING METHODS ANALYST Jaqueline Valero MD LAB POCT ORDERABLES - APRIL CE Final Result Performing Organization Address [facility] Co de Phone Number [facility] [address] [employer] [place], [place] [id number] * (ABNORMAL) POCT glucose (10/20/2023 3:57 AM ACCOUNTING METHODS ANALYST) Glucose, POC 153(H) 70 - 140 mg/dL [facility] Comment: For Glucose values <35 mg/dl when Hematocrit is >60 mg/dl,the test may not accurately detect significant hypoglycemia,and testing in the Laboratory should be considered if clinically indicated. Blood 10/20/2023 3:57 AM ACCOUNTING METHODS ANALYST 10/20/2023 3:57 AM ACCOUNTING METHODS ANALYST Result [facility] Jaqueline Valero MD LAB POCT ORDERABLES - APRIL CE Final Result Performing Organization Address [facility] Co de Phone Number [facility] [address] Department [place] [place] [address] * Oxyhemoglobin, central venous (10/20/2023 3:22 AM ACCOUNTING METHODS ANALYST) Pathologist [facility] Oxyhemoglobin, CV 70.0 % [facility] Comment: Interpretive Data No reference range established. Current interpretive data was last revised 2019. Blood 10/20/2023 3:22 AM ACCOUNTING METHODS ANALYST 10/20/2023 3:26 AM ACCOUNTING METHODS ANALYST Gamal Fox ANIMAL HUSBANDRY TECHNICIAN LAB BLOOD ORDERABLES Final Result Performing Organization Address [facility] Co de Phone Number [facility] [address] Department [place] [place] [address] * (ABNORMAL) aPTT (10/20/2023 3:22 AM ACCOUNTING METHODS ANALYST) [facility] aPTT 114(H) 28 - 38 sec [facility] Comment: Interpretive Data Heparin therapeutic range: 66.0 - 100.0 seconds. Range based on correlation with therapeutic heparin activity range of 0.3 - 0.7 Units/mL. Current interpretive data was last revised on 2023. Blood 10/20/2023 3:22 AM ACCOUNTING METHODS ANALYST 10/20/2023 3:28 AM ACCOUNTING METHODS ANALYST Narrative [facility] - 10/20/2023 4:12 AM ACCOUNTING METHODS ANALYST Draw STAT PTT 6 hrs after initiation of heparin infusion, draw STAT PTT 6 hours after each dose change, and every 6 hours until 2 consecutive PTTs are within therapeutic range. Once two consecutive PTT's are therapeutic (66-100 seconds), then draw PTT every AM until heparin is discontinued. Byron Olvera ANIMAL HUSBANDRY TECHNICIAN LAB BLOOD ORDERABLES Fi nal Result Performing Organization Address [facility] Co de Phone Number [facility] [address] Department [employer] [place], [place] [id number] * (ABNORMAL) POCT glucose (10/20/2023 3:21 AM ACCOUNTING METHODS ANALYST) Pathologist [facility] Glucose, POC 156(H) 70 - 140 mg/dL [facility] Comment: For Glucose values <35 mg/dl when Hematocrit is >60 mg/dl,the test may not accurately detect significant hypoglycemia,and testing in the Laboratory should be considered if clinically indicated. Blood 10/20/2023 3:21 AM ACCOUNTING METHODS ANALYST 10/20/2023 3:21 AM ACCOUNTING METHODS ANALYST Jaqueline Valero MD LAB POCT ORDERABLES - APRIL CE Final Result Performing Organization Address [facility] Co de Phone Number [facility] [address] [place] [address] * (ABNORMAL) POCT glucose (10/20/2023 2:10 AM ACCOUNTING METHODS ANALYST) Glucose, POC 164(H) 70 - 140 mg/dL [facility] Comment: For Glucose values <35 mg/dl when Hematocrit is >60 mg/dl,the test may not accurately detect significant hypoglycemia,and testing in the Laboratory should be considered if clinically indicated. Blood 10/20/2023 2:10 AM ACCOUNTING METHODS ANALYST 10/20/2023 2:10 AM ACCOUNTING METHODS ANALYST Result [facility] Jaqueline Valero MD LAB POCT ORDERABLES - APRIL CE Final Result Performing Organization Address [facility] de Phone Number [facility] [address] [place] [address] * POCT glucose (10/20/2023 12:57 AM ACCOUNTING METHODS ANALYST) Glucose, POC 119 70 - 140 mg/dL [facility] Comment: For Glucose values <35 mg/dl when Hematocrit is >60 mg/dl,the test may not accurately detect significant hypoglycemia,and testing in the Laboratory should be considered if clinically indicated. Blood 10/20/2023 12:5 7 AM ACCOUNTING METHODS ANALYST 10/20/2023 12:57 AM ACCOUNTING METHODS ANALYST Jaqueline Valero MD LAB POCT ORDERABLES - APRIL CE Final Result Performing Organization Address [facility] Co de Phone Number [facility] [address] [place] [address] * eGFR (10/20/2023 12:21 AM ACCOUNTING METHODS ANALYST) eGFR 5 mL/min/1. 73 m2 [facility] Comment: Interpretive Data Reference Interval Normal ?>/= [...] reviewed 2021. Blood 10/20/2023 12:2 1 AM ACCOUNTING METHODS ANALYST 10/20/2023 12:43 AM ACCOUNTING METHODS ANALYST us Dawna Castellanos ANIMAL HUSBANDRY TECHNICIAN LAB BLOOD ORDERABLES Ann Marie l Result [facility] [address] [place] [address] * Oxyhemoglobin, central venous (10/20/2023 12:21 AM ACCOUNTING METHODS ANALYST) Oxyhemoglobin, CV 51.0 % [facility] Comment: Interpretive Data No reference range established. Current interpretive data was last revised 2019. Blood 10/20/2023 12:2 1 AM ACCOUNTING METHODS ANALYST 10/20/2023 12:35 AM ACCOUNTING METHODS ANALYST Dawna Castellanos ANIMAL HUSBANDRY TECHNICIAN LAB BLOOD ORDERABLES Ann Marie l Result [facility] [address] [facility] [place] [address] * (ABNORMAL) Protime-INR (10/20/2023 12:21 AM ACCOUNTING METHODS ANALYST) PT 25.5(H) 10.3 - 13.7 sec [facility] INR 2.24(H) 0.90 - 1.20 [facility] Comment: Interpretive data Oral anticoagulant therapeutic ranges: Venous thromboembolism prophylaxis or treatment: 2.0-3.0 CARDIOLOGY Standard range: 2.0-3.0 High-intensity range: 2.5-3.5 Refer to indication-specific guidelines for appropriate target ranges for prosthetic heart valve replacement. Current interpretive data was last revised on 2019. Blood 10/20/2023 12:2 1 AM ACCOUNTING METHODS ANALYST 10/20/2023 12:43 AM ACCOUNTING METHODS ANALYST Byron Olvera ANIMAL HUSBANDRY TECHNICIAN LAB BLOOD ORDERABLES Fi nal Result Performing Organization Address [facility] Co de Phone Number [facility] [address] [facility] [place] [address] * Magnesium (10/20/2023 12:21 AM ACCOUNTING METHODS ANALYST) Pathologist [facility] Magnesium 2.4 1.4 - 2.5 mg/dL [facility] Blood 10/20/2023 12:2 1 AM ACCOUNTING METHODS ANALYST 10/20/2023 12:43 AM ACCOUNTING METHODS ANALYST Byron Olvera ANIMAL HUSBANDRY TECHNICIAN LAB BLOOD ORDERABLES Fi nal Result Performing Organization Address City/[facility]/ZIP Co de Phone Number [facility] [address] Department [place] [address] * (ABNORMAL) Calcium, ionized (10/20/2023 12:21 AM ACCOUNTING METHODS ANALYST) Calcium, Ionized 4.38(L) 4.50 - 5.10 mg/dL [facility] Blood 10/20/2023 12:2 1 AM ACCOUNTING METHODS ANALYST 10/20/2023 12:35 AM ACCOUNTING METHODS ANALYST us Byron Olvera ANIMAL HUSBANDRY TECHNICIAN LAB BLOOD ORDERABLES nal Result [facility] [address] [place] [address] * (ABNORMAL) Renal function panel (10/20/2023 12:21 AM ACCOUNTING METHODS ANALYST) Pathologist [facility] Sodium 137 135 - 145 mmol/L [facility] Potassium, pl 4.4 3.3 - 4.9 mmol/L [facility] Chloride 96(L) 97 - 110 mmol/L [facility] CO2 21(L) 22 - 32 mmol/L [facility] Anion gap 20(H) 2 - 15 mmol/L [facility] BUN 77(H) 6 - 25 mg/dL [facility] Creatinine 11.28(H) 0.80 - 1.30 mg/dL [facility] Glucose 105 70 - 199 mg/dL [facility] Comment: Interpretive Data Fasting glucose [...] 2022. Calcium 8.9 8.5 - 10.3 mg/dL [facility] Phosphorus, pl 8.9(H) 2.3 - 4.5 mg/dL [facility] Albumin 2.8(L) 3.5 - 5.0 g/dL [facility] Blood 10/20/2023 12:2 1 AM ACCOUNTING METHODS ANALYST 10/20/2023 12:43 AM ACCOUNTING METHODS ANALYST Byron Olvera NP LAB BLOOD ORDERABLES Fi nal Result Performing Organization Address [facility] Co de Phone Number [facility] [address] [employer] [place] [address] * (ABNORMAL) CBC without differential (10/20/2023 12:21 AM ACCOUNTING METHODS ANALYST) [facility] WBC 8.8 3.8 - 9.9 K/cumm [facility] Hgb 8.3(L) 13.0 - 17.5 g/dL [facility] Hct 26.2(L) 38.9 - 50.3 % [facility] Plt 149(L) 150 - 400 K/cumm [facility] MPV 11.1 9.1 - 12.3 fL [facility] RBC 2.76(L) 4.30 - 5.80 M/cumm [facility] MCV 94.9 81.3 - 96.4 fL [facility] MCH 30.1 27.1 - 33.3 pg [facility] MCHC 31.7(L) 32.3 - 35.7 g/dL [facility] RDW CV 16.5(H) 11.1 - 14.9 % [facility] RDW SD 56.3(H) 35.7 - 48.1 fL [facility] NRBC abs 0.00 0.00 - 0.01 K/cumm [facility] Blood 10/20/2023 12:2 1 AM ACCOUNTING METHODS ANALYST 10/20/2023 12:43 AM ACCOUNTING METHODS ANALYST Byron Olvera NP LAB BLOOD ORDERABLES Fi nal Result Performing Organization Address City/[facility]/ZIP Co de Phone Number [facility] [address] Department [employer] [place], [place] [id number] * POCT glucose (10/20/2023 12:20 AM ACCOUNTING METHODS ANALYST) Glucose, POC 111 70 - 140 mg/dL [facility] Comment: For Glucose values <35 mg/dl when Hematocrit is >60 mg/dl,the test may not accurately detect significant hypoglycemia,and testing in the Laboratory should be considered if clinically indicated. Blood 10/20/2023 12:2 0 AM ACCOUNTING METHODS ANALYST 10/20/2023 12:20 AM ACCOUNTING METHODS ANALYST Jaqueline Valero MD LAB POCT ORDERABLES - APRIL CE Final Result Performing Organization Address [facility] de Phone Number [facility] [address] [place] [address] * POCT glucose (10/19/2023 11:03 PM ACCOUNTING METHODS ANALYST) Glucose, POC 111 70 - 140 mg/dL [facility] Comment: For Glucose values <35 mg/dl when Hematocrit is >60 mg/dl,the test may not accurately detect significant hypoglycemia,and testing in the Laboratory should be considered if clinically indicated. Blood 10/19/2023 11:0 3 PM ACCOUNTING METHODS ANALYST 10/19/2023 11:03 PM ACCOUNTING METHODS ANALYST Jaqueline Valero MD LAB POCT ORDERABLES - APRIL CE Final Result Performing Organization Address [facility] de Phone Number [facility] [address] [place] [address] * POCT glucose (10/19/2023 10:01 PM ACCOUNTING METHODS ANALYST) Glucose, POC 120 70 - 140 mg/dL [facility] Comment: For Glucose values <35 mg/dl when Hematocrit is >60 mg/dl,the test may not accurately detect significant hypoglycemia,and testing in the Laboratory should be considered if clinically indicated. Blood 10/19/2023 10:0 1 PM ACCOUNTING METHODS ANALYST 10/19/2023 10:01 PM ACCOUNTING METHODS ANALYST Jaqueline Valero MD LAB POCT ORDERABLES - APRIL CE Final Result Performing Organization Address [facility]/State/ZIP Co de Phone Number [facility] [address] [facility] [place] [address] * (ABNORMAL) aPTT (10/19/2023 9:47 PM ACCOUNTING METHODS ANALYST) Pathologist [facility] aPTT 94(H) 28 - 38 sec [facility] Comment: Interpretive Data Heparin therapeutic range: 66.0 - 100.0 seconds. Range based on correlation with therapeutic heparin activity range of 0.3 - 0.7 Units/mL. Current interpretive data was last revised on 2023. Blood 10/19/2023 9:47 PM ACCOUNTING METHODS ANALYST 10/19/2023 9:54 PM ACCOUNTING METHODS ANALYST Narrative [facility] - 10/19/2023 10:17 PM ACCOUNTING METHODS ANALYST Draw STAT PTT 6 hrs after initiation of heparin infusion, draw STAT PTT 6 hours after each dose change, and every 6 hours until 2 consecutive PTTs are within therapeutic range. Once two consecutive PTT's are therapeutic (66-100 seconds), then draw PTT every AM until heparin is discontinued. us Byron Olvera NP LAB BLOOD ORDERABLES Fi nal Result Performing Organization Address [facility] Co de Phone Number [facility] [address] [place] [address] * (ABNORMAL) POCT glucose (10/19/2023 9:15 PM ACCOUNTING METHODS ANALYST) [facility] Glucose, POC 143(H) 70 - 140 mg/dL [facility] Comment: For Glucose values <35 mg/dl when Hematocrit is >60 mg/dl,the test may not accurately detect significant hypoglycemia,and testing in the Laboratory should be considered if clinically indicated. Blood 10/19/2023 9:15 PM ACCOUNTING METHODS ANALYST 10/19/2023 9:15 PM ACCOUNTING METHODS ANALYST Jaqueline Valero MD LAB POCT ORDERABLES - APRIL CE Final Result Performing Organization Address [facility] Co de Phone Number [facility] [address] [facility] [place] [address] * (ABNORMAL) POCT glucose (10/19/2023 8:12 PM ACCOUNTING METHODS ANALYST) Glucose, POC 156(H) 70 - 140 mg/dL [facility] Comment: For Glucose values <35 mg/dl when Hematocrit is >60 mg/dl,the test may not accurately detect significant hypoglycemia,and testing in the Laboratory should be considered if clinically indicated. Blood 10/19/2023 8:12 PM ACCOUNTING METHODS ANALYST 10/19/2023 8:12 PM ACCOUNTING METHODS ANALYST Jaqueline Valero MD LAB POCT ORDERABLES - APRIL CE Final Result Performing Organization Address [facility] Co de Phone Number [facility] [address] [facility] [place] [address] * POCT glucose (10/19/2023 6:13 PM ACCOUNTING METHODS ANALYST) Glucose, POC 94 70 - 140 mg/dL [facility] Comment: For Glucose values <35 mg/dl when Hematocrit is >60 mg/dl,the test may not accurately detect significant hypoglycemia,and testing in the Laboratory should be considered if clinically indicated. Blood 10/19/2023 6:13 PM ACCOUNTING METHODS ANALYST 10/19/2023 6:13 PM ACCOUNTING METHODS ANALYST Jaqueline Valero MD LAB POCT ORDERABLES - APRIL CE Final Result Performing Organization Address City/[facility] Co de Phone Number [facility] [address] [facility] [place] [address] * POCT glucose (10/19/2023 5:24 PM ACCOUNTING METHODS ANALYST) Glucose, POC 90 70 - 140 mg/dL [facility] Comment: For Glucose values <35 mg/dl when Hematocrit is >60 mg/dl,the test may not accurately detect significant hypoglycemia,and testing in the Laboratory should be considered if clinically indicated. Blood 10/19/2023 5:24 PM ACCOUNTING METHODS ANALYST 10/19/2023 5:24 PM ACCOUNTING METHODS ANALYST us Jaqueline Valero MD LAB POCT ORDERABLES - APRIL CE Final Result [facility] [address] [place] [address] * XR Chest 1 View (10/19/2023 4:29 PM ACCOUNTING METHODS ANALYST) Anatomical Region Laterality Modality Body, Chest N/A Computed Radiogr aphy 10/19/2023 4:32 PM ACCOUNTING METHODS ANALYST Impressions 10/19/2023 4:32 PM ACCOUNTING METHODS ANALYST Comparison made to radiograph 10/19/2023. Right internal [...] Trace Barrow M.D. Narrative 10/19/2023 4:32 PM ACCOUNTING METHODS ANALYST EXAMINATION: XR CHEST 1 VIEW HISTORY: ??Chest [...] signed by: Trace Barrow M.D. Dawna Castellanos ANIMAL HUSBANDRY TECHNICIAN IMG XR PROCEDURES Final R esult * POCT glucose (10/19/2023 4:25 PM ACCOUNTING METHODS ANALYST) Glucose, POC 113 70 - 140 mg/dL [facility] Comment: For Glucose values <35 mg/dl when Hematocrit is >60 mg/dl,the test may not accurately detect significant hypoglycemia,and testing in the Laboratory should be considered if clinically indicated. Blood 10/19/2023 4:25 PM ACCOUNTING METHODS ANALYST 10/19/2023 4:25 PM ACCOUNTING METHODS ANALYST Jaqueline Valero MD LAB POCT ORDERABLES - APRIL CE Final Result Performing Organization Address [facility] de Phone Number [facility] [address] [place] [address] * ECG 12 lead (10/19/2023 3:21 PM ACCOUNTING METHODS ANALYST) 10/19/2023 3:21 PM ACCOUNTING METHODS ANALYST Narrative [facility] - 10/20/2023 9:37 AM ACCOUNTING METHODS ANALYST Vent Rate: 78 bpm RR Interval: 769 msec VA Interval: 264 msec QRS Duration: 145 msec QT Interval: 426 msec QTC Interval: 459 msec P-R-T [place]: 47 - -19 - 115 degrees IMPRESSION: PROBABLE SINUS RHYTHM WITH FIRST DEGREE AV BLOCK FREQUENT SUPRAVENTRICULAR PREMATURE COMPLEXES IN A BIGEMINAL PATTERN INTRAVENTRICULAR CONDUCTION DELAY NONSPECIFIC T-WAVE CHANGES ABNORMAL ECG Electronically Signed By: Abelardo Randle MD Dawna Castellanos ANIMAL HUSBANDRY TECHNICIAN ECG ORDERABLES Final Res ult Performing Organization Address [facility] de Phone Number [facility] [employer] [facility] * XR Kub (10/19/2023 2:49 PM ACCOUNTING METHODS ANALYST) Anatomical Region Laterality Modality Body, Abdomen N/A Computed Radiogr aphy 10/19/2023 3:00 PM ACCOUNTING METHODS ANALYST Impressions 10/19/2023 3:00 PM ACCOUNTING METHODS ANALYST FINDINGS/IMPRESSION: Postsurgical changes in the chest. ??Epicardial pacer wires overlie the abdomen and chest. ??Chest tube/mediastinal drains overlie the abdomen. ??Nguyen catheter superimposes the expected location of the urinary bladder. There is no dilatation of small or large bowel seen, although exam is limited secondary to body habitus. Electronically signed by: DO Luis Parker 10/19/2023 3:00 PM ACCOUNTING METHODS ANALYST EXAM: ??XR KUB, 10/19/2023 1:50 PM HISTORY: [...] Result * (ABNORMAL) aPTT (10/19/2023 2:44 PM ACCOUNTING METHODS ANALYST) aPTT 59(H) 28 - 38 sec [facility] Comment: Interpretive Data Heparin therapeutic range: 66.0 - 100.0 seconds. Range based on correlation with therapeutic heparin activity range of 0.3 - 0.7 Units/mL. Current interpretive data was last revised on 2023. Blood 10/19/2023 2:44 PM ACCOUNTING METHODS ANALYST 10/19/2023 2:48 PM ACCOUNTING METHODS ANALYST Narrative [facility] - 10/19/2023 3:02 PM ACCOUNTING METHODS ANALYST Draw STAT PTT 6 hrs after initiation of heparin infusion, draw STAT PTT 6 hours after each dose change, and every 6 hours until 2 consecutive PTTs are within therapeutic range. Once two consecutive PTT's are therapeutic (66-100 seconds), then draw PTT every AM until heparin is discontinued. Byron Olvera NP LAB BLOOD ORDERABLES [facility] Result [facility] [address] [place] [address] * (ABNORMAL) Hepatic function panel (10/19/2023 2:44 PM ACCOUNTING METHODS ANALYST) Pathologist [facility] Bilirubin, total 0.3 0.1 - 1.2 mg/dL [facility] Bilirubin, direct <0.2 0.1 - 0.3 mg/dL [facility] Protein, pl 5.2(L) 6.5 - 8.5 g/dL [facility] Albumin 3.0(L) 3.5 - 5.0 g/dL [facility] Alk phos 104 40 - 130 Units/L [facility] ALT 9 7 - 55 Units/L [facility] AST 39 10 - 50 Units/L [facility] Blood 10/19/2023 2:44 PM ACCOUNTING METHODS ANALYST 10/19/2023 2:48 PM ACCOUNTING METHODS ANALYST Kirsten Burns MD LAB BLOOD ORDERABLES Fin al Result Performing Organization Address [facility] Co de Phone Number [facility] [address] [facility] [place] [address] * (ABNORMAL) Lipase (10/19/2023 2:44 PM ACCOUNTING METHODS ANALYST) [facility] Lipase 7(L) 10 - 99 Units/L [facility] Blood 10/19/2023 2:44 PM ACCOUNTING METHODS ANALYST 10/19/2023 2:48 PM ACCOUNTING METHODS ANALYST Result [facility] Kirsten Burns MD LAB BLOOD ORDERABLES Fin al Result Performing Organization Address [facility] Co de Phone Number [facility] [address] [facility] [place] [address] * (ABNORMAL) Amylase (10/19/2023 2:44 PM ACCOUNTING METHODS ANALYST) [facility] Amylase <3(L) 30 - 99 Units/L [facility] Blood 10/19/2023 2:44 PM ACCOUNTING METHODS ANALYST 10/19/2023 2:48 PM ACCOUNTING METHODS ANALYST Result [facility] Kirsten Burns MD LAB BLOOD ORDERABLES Fin al Result Performing Organization Address [facility] Co de Phone Number [facility] [address] [facility] [place] [address] * (ABNORMAL) POCT glucose (10/19/2023 2:40 PM ACCOUNTING METHODS ANALYST) Glucose, POC 195(H) 70 - 140 mg/dL [facility] Comment: For Glucose values <35 mg/dl when Hematocrit is >60 mg/dl,the test may not accurately detect significant hypoglycemia,and testing in the Laboratory should be considered if clinically indicated. Blood 10/19/2023 2:40 PM ACCOUNTING METHODS ANALYST 10/19/2023 2:40 PM ACCOUNTING METHODS ANALYST Jaqueline Valero MD LAB POCT ORDERABLES - APRIL CE Final Result Performing Organization Address [facility] Co de Phone Number [facility] [address] [facility] [place] [address] * POCT glucose (10/19/2023 12:25 PM ACCOUNTING METHODS ANALYST) Glucose, POC 114 70 - 140 mg/dL [facility] Comment: For Glucose values <35 mg/dl when Hematocrit is >60 mg/dl,the test may not accurately detect significant hypoglycemia,and testing in the Laboratory should be considered if clinically indicated. Blood 10/19/2023 12:2 5 PM ACCOUNTING METHODS ANALYST 10/19/2023 12:25 PM ACCOUNTING METHODS ANALYST Jaqueline Valero MD LAB POCT ORDERABLES - APRIL CE Final Result [facility] [address] [place] [address] * POCT glucose (10/19/2023 11:12 AM ACCOUNTING METHODS ANALYST) Glucose, POC 116 70 - 140 mg/dL [facility] Comment: For Glucose values <35 mg/dl when Hematocrit is >60 mg/dl,the test may not accurately detect significant hypoglycemia,and testing in the Laboratory should be considered if clinically indicated. Blood 10/19/2023 11:1 2 AM ACCOUNTING METHODS ANALYST 10/19/2023 11:12 AM ACCOUNTING METHODS ANALYST Jaqueline Valero MD LAB POCT ORDERABLES - APRIL CE Final Result Performing Organization Address [facility] Co de Phone Number [facility] [address] [facility] [place] [address] * (ABNORMAL) POCT glucose (10/19/2023 10:54 AM ACCOUNTING METHODS ANALYST) Glucose, POC 57(L) 70 - 140 mg/dL [facility] Comment: For Glucose values <35 mg/dl when Hematocrit is >60 mg/dl,the test may not accurately detect significant hypoglycemia,and testing in the Laboratory should be considered if clinically indicated. Blood 10/19/2023 10:5 4 AM ACCOUNTING METHODS ANALYST 10/19/2023 10:54 AM ACCOUNTING METHODS ANALYST Jaqueline Valero MD LAB POCT ORDERABLES - APRIL CE Final Result Performing Organization Address [facility] de Phone Number [facility] [address] [facility] [place] [address] * POCT glucose (10/19/2023 9:04 AM ACCOUNTING METHODS ANALYST) Glucose, POC 82 70 - 140 mg/dL [facility] Comment: For Glucose values <35 mg/dl when Hematocrit is >60 mg/dl,the test may not accurately detect significant hypoglycemia,and testing in the Laboratory should be considered if clinically indicated. Blood 10/19/2023 9:04 AM ACCOUNTING METHODS ANALYST 10/19/2023 9:04 AM ACCOUNTING METHODS ANALYST Jaqueline Valero MD LAB POCT ORDERABLES - APRIL CE Final Result Performing Organization Address [facility] Co de Phone Number [facility] [address] Department [place] [employer] [place] [address] * (ABNORMAL) aPTT (10/19/2023 8:58 AM ACCOUNTING METHODS ANALYST) aPTT 46(H) 28 - 38 sec [facility] Comment: Interpretive Data Heparin therapeutic range: 66.0 - 100.0 seconds. Range based on correlation with therapeutic heparin activity range of 0.3 - 0.7 Units/mL. Current interpretive data was last revised on 2023. Blood 10/19/2023 8:58 AM ACCOUNTING METHODS ANALYST 10/19/2023 9:28 AM ACCOUNTING METHODS ANALYST Narrative [facility] - 10/19/2023 9:51 AM ACCOUNTING METHODS ANALYST Draw STAT PTT 6 hrs after initiation of heparin infusion, draw STAT PTT 6 hours after each dose change, and every 6 hours until 2 consecutive PTTs are within therapeutic range. Once two consecutive PTT's are therapeutic (66-100 seconds), then draw PTT every AM until heparin is discontinued. Byron Olvera ANIMAL HUSBANDRY TECHNICIAN LAB BLOOD ORDERABLES Fi nal Result Performing Organization Address [facility] Co de Phone Number [facility] [address] [place] [address] * Oxyhemoglobin, central venous (10/19/2023 8:58 AM ACCOUNTING METHODS ANALYST) [facility] Oxyhemoglobin, CV 70.1 % [facility] Comment: Interpretive Data No reference range established. Current interpretive data was last revised 2019. Blood 10/19/2023 8:58 AM ACCOUNTING METHODS ANALYST 10/19/2023 9:16 AM ACCOUNTING METHODS ANALYST Narrative [facility] - 10/19/2023 9:17 AM ACCOUNTING METHODS ANALYST While on [facility] Dawna Castellanos ANIMAL HUSBANDRY TECHNICIAN LAB BLOOD ORDERABLES Ann Marie l Result Performing Organization Address City/[facility]/ZIP Co de Phone Number [facility] [address] [place] [place] [address] * (ABNORMAL) POCT glucose (10/19/2023 7:19 AM ACCOUNTING METHODS ANALYST) [facility] Glucose, POC 150(H) 70 - 140 mg/dL [facility] Comment: For Glucose values <35 mg/dl when Hematocrit is >60 mg/dl,the test may not accurately detect significant hypoglycemia,and testing in the Laboratory should be considered if clinically indicated. Blood 10/19/2023 7:19 AM ACCOUNTING METHODS ANALYST 10/19/2023 7:19 AM ACCOUNTING METHODS ANALYST Jaqueline Valero MD LAB POCT ORDERABLES - APRIL CE Final Result Performing Organization Address [facility] Co de Phone Number [facility] [address] Department of [employer] [place], [place] [id number] * Lactate (10/19/2023 7:09 AM ACCOUNTING METHODS ANALYST) Lactate 1.4 0.7 - 2.0 mmol/L [facility] Blood 10/19/2023 7:09 AM ACCOUNTING METHODS ANALYST 10/19/2023 7:22 AM ACCOUNTING METHODS ANALYST Dawna Castellanos ANIMAL HUSBANDRY TECHNICIAN LAB BLOOD ORDERABLES Ann Marie l Result Performing Organization Address [facility] Co de Phone Number [facility] [address] Department of [employer] [place], [place] [id number] * Oxyhemoglobin, central venous (10/19/2023 7:09 AM ACCOUNTING METHODS ANALYST) Oxyhemoglobin, CV 96.5 % [facility] Comment: Interpretive Data No reference range established. Current interpretive data was last revised 2019. Blood 10/19/2023 7:09 AM ACCOUNTING METHODS ANALYST 10/19/2023 7:22 AM ACCOUNTING METHODS ANALYST Narrative [facility] - 10/19/2023 7:24 AM ACCOUNTING METHODS ANALYST While on [facility] Dawna Castellanos ANIMAL HUSBANDRY TECHNICIAN LAB BLOOD ORDERABLES Ann Marie l Result Performing Organization Address [facility] Co de Phone Number [facility] [address] Department of [employer] [place], [place] [id number] * Critical Care (10/19/2023 6:57 AM ACCOUNTING METHODS ANALYST) Narrative Kirsten Burns MD - 10/19/2023 6:57 AM ACCOUNTING METHODS ANALYST Dawna Castellanos NP ? 10/19/2023 ??2:12 PM Critical Care Performed by: Dawna Castellanos NP Authorized by: Dawna Castellanos NP ?? CRITICAL CARE: ??Team: ??[facility] CT ??Shift: ??AM ??Level of Billing: ??Critical [...] plan with the ICU team and other medical/web consultant staff, making frequent assessments and decisions [...] * (ABNORMAL) POCT glucose (10/19/2023 6:57 AM ACCOUNTING METHODS ANALYST) [facility] Signature Glucose, POC 147(H) 70 - 140 mg/dL [facility] Comment: For Glucose values <35 mg/dl when Hematocrit is >60 mg/dl,the test may not accurately detect significant hypoglycemia,and testing in the Laboratory should be considered if clinically indicated. Blood 10/19/2023 6:57 AM ACCOUNTING METHODS ANALYST 10/19/2023 6:57 AM ACCOUNTING METHODS ANALYST Jaqueline Valero MD LAB POCT ORDERABLES - APRIL CE Final Result [facility] [address] [place] [address] * XR Chest 1 View - Portable - in AM (10/19/2023 6:27 AM ACCOUNTING METHODS ANALYST) Anatomical Region Laterality Modality Body, Chest N/A Computed Radiogr aphy 10/19/2023 7:36 AM ACCOUNTING METHODS ANALYST Impressions 10/19/2023 7:36 AM ACCOUNTING METHODS ANALYST Comparison is made to 10/10/2023. ??Right internal jugular catheter tip overlies the superior vena cava, unchanged in position. ??The [place]-Daniel catheter has been removed. ??Sternotomy wires and [...] John Bruno M.D. Narrative 10/19/2023 7:36 AM ACCOUNTING METHODS ANALYST EXAMINATION: Chest 1 view frontal HISTORY: Shortness of breath Procedure Note John Bruno MD - 10/19/2023 EXAMINATION: Chest 1 view frontal HISTORY: Shortness of breath IMPRESSION: Comparison is made to 10/10/2023. Right internal jugular catheter tip overlies the superior vena cava, unchanged in position. The [place]-Daniel catheter has been removed. Sternotomy wires and [...] * (ABNORMAL) POCT glucose (10/19/2023 6:06 AM ACCOUNTING METHODS ANALYST) Glucose, POC 163(H) 70 - 140 mg/dL [facility] Comment: For Glucose values <35 mg/dl when Hematocrit is >60 mg/dl,the test may not accurately detect significant hypoglycemia,and testing in the Laboratory should be considered if clinically indicated. Blood 10/19/2023 6:06 AM ACCOUNTING METHODS ANALYST 10/19/2023 6:06 AM ACCOUNTING METHODS ANALYST Jaqueline Valero MD LAB POCT ORDERABLES - APRIL CE Final Result Performing Organization Address [facility] de Phone Number [facility] [address] [facility] [place] [address] * (ABNORMAL) POCT glucose (10/19/2023 5:10 AM ACCOUNTING METHODS ANALYST) Glucose, POC 191(H) 70 - 140 mg/dL [facility] Comment: For Glucose values <35 mg/dl when Hematocrit is >60 mg/dl,the test may not accurately detect significant hypoglycemia,and testing in the Laboratory should be considered if clinically indicated. Blood 10/19/2023 5:10 AM ACCOUNTING METHODS ANALYST 10/19/2023 5:10 AM ACCOUNTING METHODS ANALYST Jaqueline Valero MD LAB POCT ORDERABLES - APRIL CE Final Result Performing Organization Address [facility] de Phone Number [facility] [address] [facility] [place] [address] * (ABNORMAL) aPTT (10/19/2023 4:14 AM ACCOUNTING METHODS ANALYST) aPTT 50(H) 28 - 38 sec [facility] Comment: Interpretive Data Heparin therapeutic range: 66.0 - 100.0 seconds. Range based on correlation with therapeutic heparin activity range of 0.3 - 0.7 Units/mL. Current interpretive data was last revised on 2023. Blood 10/19/2023 4:14 AM ACCOUNTING METHODS ANALYST 10/19/2023 4:27 AM ACCOUNTING METHODS ANALYST Narrative [facility] - 10/19/2023 5:01 AM ACCOUNTING METHODS ANALYST Draw STAT PTT 6 hrs after initiation of heparin infusion, draw STAT PTT 6 hours after each dose change, and every 6 hours until 2 consecutive PTTs are within therapeutic range. Once two consecutive PTT's are therapeutic (46-70 seconds), then draw PTT every AM until heparin is discontinued. Jaqueline Valero MD LAB BLOOD ORDERABLES Final Result Performing Organization Address [facility] Co de Phone Number [facility] [address] [facility] [place] [address] * (ABNORMAL) POCT glucose (10/19/2023 4:03 AM ACCOUNTING METHODS ANALYST) Glucose, POC 175(H) 70 - 140 mg/dL [facility] Comment: For Glucose values <35 mg/dl when Hematocrit is >60 mg/dl,the test may not accurately detect significant hypoglycemia,and testing in the Laboratory should be considered if clinically indicated. Blood 10/19/2023 4:03 AM ACCOUNTING METHODS ANALYST 10/19/2023 4:03 AM ACCOUNTING METHODS ANALYST Result [facility] Jaqueline Valero MD LAB POCT ORDERABLES - APRIL CE Final Result Performing Organization Address [facility] de Phone Number [facility] [address] [facility] [place] [address] * (ABNORMAL) POCT glucose (10/19/2023 2:56 AM ACCOUNTING METHODS ANALYST) Glucose, POC 177(H) 70 - 140 mg/dL [facility] Comment: For Glucose values <35 mg/dl when Hematocrit is >60 mg/dl,the test may not accurately detect significant hypoglycemia,and testing in the Laboratory should be considered if clinically indicated. Blood 10/19/2023 2:56 AM ACCOUNTING METHODS ANALYST 10/19/2023 2:56 AM ACCOUNTING METHODS ANALYST Result [facility] Jaqueline Valero MD LAB POCT ORDERABLES - APRIL CE Final Result Performing Organization Address [facility] Co de Phone Number [facility] [address] [facility] [place] [address] * eGFR (10/19/2023 2:11 AM ACCOUNTING METHODS ANALYST) eGFR 5 mL/min/1. 73 m2 [facility] Comment: Interpretive Data Reference Interval [...] reviewed 2021. Blood 10/19/2023 2:1 1 AM ACCOUNTING METHODS ANALYST 10/19/2023 2:23 AM ACCOUNTING METHODS ANALYST us Dawna Castellanos ANIMAL HUSBANDRY TECHNICIAN LAB BLOOD ORDERABLES Ann Marie l Result [facility] [address] [place] [address] * (ABNORMAL) Blood gas, arterial (10/19/2023 2:11 AM ACCOUNTING METHODS ANALYST) pH, Art 7.28(L) 7.35 - 7.45 [facility] PCO2, Arterial 44 35 - 45 mmHg [facility] PO2, Arterial 130(H) 83 - 108 mmHg [facility] HCO3 Art (Calculated) 21 20 - 30 mmol/L [facility] BE, art -6 mmol/L [facility] Comment: Interpretive Data No Reference Range Established Current Interpretive Data was last revised on 2017 O2 Sat Art (Calculated) 99(H) 94 - 98 % [facility] Blood 10/19/2023 2:11 AM ACCOUNTING METHODS ANALYST 10/19/2023 2:15 AM ACCOUNTING METHODS ANALYST Gamal Fox ANIMAL HUSBANDRY TECHNICIAN LAB BLOOD ORDERABLES Final Result Performing Organization Address [facility]/ZIP Co de Phone Number [facility] [address] [facility] [employer] [place], [place] [id number] * Oxyhemoglobin, central venous (10/19/2023 2:11 AM ACCOUNTING METHODS ANALYST) Oxyhemoglobin, CV 79.0 % [facility] Comment: Interpretive Data No reference range established. Current interpretive data was last revised 2019. Blood 10/19/2023 2:11 AM ACCOUNTING METHODS ANALYST 10/19/2023 2:15 AM ACCOUNTING METHODS ANALYST Dawna Castellanos ANIMAL HUSBANDRY TECHNICIAN LAB BLOOD ORDERABLES Ann Marie l Result Performing Organization Address [facility] Co de Phone Number [facility] [address] [place] [address] * Protime-INR (10/19/2023 2:11 AM ACCOUNTING METHODS ANALYST) PT 12.8 10.3 - 13.7 sec [facility] INR 1.12 0.90 - 1.20 [facility] Comment: Interpretive data Oral anticoagulant therapeutic ranges: Venous thromboembolism prophylaxis or treatment: 2.0-3.0 CARDIOLOGY Standard range: 2.0-3.0 High-intensity range: 2.5-3.5 Refer to indication-specific guidelines for appropriate target ranges for prosthetic heart valve replacement. Current interpretive data was last revised on 2019. Blood 10/19/2023 2:11 AM ACCOUNTING METHODS ANALYST 10/19/2023 2:23 AM ACCOUNTING METHODS ANALYST Byron Olvera ANIMAL HUSBANDRY TECHNICIAN LAB BLOOD ORDERABLES Fi nal Result Performing Organization Address City/[facility] Co de Phone Number [facility] [address] [facility] [place] [address] * Magnesium (10/19/2023 2:11 AM ACCOUNTING METHODS ANALYST) Magnesium 2.5 1.4 - 2.5 mg/dL [facility] Blood 10/19/2023 2:11 AM ACCOUNTING METHODS ANALYST 10/19/2023 2:23 AM ACCOUNTING METHODS ANALYST Byron Olvera ANIMAL HUSBANDRY TECHNICIAN LAB BLOOD ORDERABLES Fi nal Result Performing Organization Address [facility] Co de Phone Number [facility] [address] [facility] [place] [address] * Calcium, ionized (10/19/2023 2:11 AM ACCOUNTING METHODS ANALYST) Calcium, Ionized 4.69 4.50 - 5.10 mg/dL [facility] Blood 10/19/2023 2:11 AM ACCOUNTING METHODS ANALYST 10/19/2023 2:15 AM ACCOUNTING METHODS ANALYST Byron Olvera ANIMAL HUSBANDRY TECHNICIAN LAB BLOOD ORDERABLES Fi nal Result Performing Organization Address [facility] Co de Phone Number [facility] [address] [facility] [place] [address] * (ABNORMAL) Renal function panel (10/19/2023 2:11 AM ACCOUNTING METHODS ANALYST) Sodium 138 135 - 145 mmol/L [facility] Potassium, pl 4.4 3.3 - 4.9 mmol/L [facility] Chloride 97 97 - 110 mmol/L [facility] CO2 21(L) 22 - 32 mmol/L [facility] Anion gap 20(H) 2 - 15 mmol/L [facility] BUN 74(H) 6 - 25 mg/dL [facility] Creatinine 10.85(H) 0.80 - 1.30 mg/dL [facility] Glucose 188 70 - 199 mg/dL [facility] Comment: Interpretive Data Fasting glucose [...] 2022. Calcium 9.0 8.5 - 10.3 mg/dL [facility] Phosphorus, pl 8.3(H) 2.3 - 4.5 mg/dL [facility] Albumin 3.1(L) 3.5 - 5.0 g/dL [facility] Blood 10/19/2023 2:11 AM ACCOUNTING METHODS ANALYST 10/19/2023 2:23 AM ACCOUNTING METHODS ANALYST us Byron Olvera NP LAB BLOOD ORDERABLES nal Result [facility] [address] [place] [address] * (ABNORMAL) CBC without differential (10/19/2023 2:11 AM ACCOUNTING METHODS ANALYST) WBC 8.9 3.8 - 9.9 K/cumm [facility] Hgb 8.7(L) 13.0 - 17.5 g/dL [facility] Hct 27.4(L) 38.9 - 50.3 % [facility] Plt 157 150 - 400 K/cumm [facility] MPV 11.0 9.1 - 12.3 fL [facility] RBC 2.91(L) 4.30 - 5.80 M/cumm [facility] MCV 94.2 81.3 - 96.4 fL [facility] MCH 29.9 27.1 - 33.3 pg [facility] MCHC 31.8(L) 32.3 - 35.7 g/dL [facility] RDW CV 16.4(H) 11.1 - 14.9 % [facility] RDW SD 55.0(H) 35.7 - 48.1 fL [facility] NRBC abs 0.00 0.00 - 0.01 K/cumm [facility] Blood 10/19/2023 2:11 AM ACCOUNTING METHODS ANALYST 10/19/2023 2:23 AM ACCOUNTING METHODS ANALYST us Byron Olvera ANIMAL HUSBANDRY TECHNICIAN LAB BLOOD ORDERABLES Fi nal Result Performing Organization Address [facility]/ZIP Co de Phone Number [facility] [address] Department [employer] [place], [place] [id number] * (ABNORMAL) POCT glucose (10/19/2023 2:07 AM ACCOUNTING METHODS ANALYST) Glucose, POC 171(H) 70 - 140 mg/dL [facility] Comment: For Glucose values <35 mg/dl when Hematocrit is >60 mg/dl,the test may not accurately detect significant hypoglycemia,and testing in the Laboratory should be considered if clinically indicated. Blood 10/19/2023 2:07 AM ACCOUNTING METHODS ANALYST 10/19/2023 2:07 AM ACCOUNTING METHODS ANALYST us Jaqueline Valero MD LAB POCT ORDERABLES - APRIL CE Final Result Performing Organization Address [facility]/ZIP Co de Phone Number [facility] [address] [place] [place] [address] * (ABNORMAL) POCT glucose (10/19/2023 12:01 AM ACCOUNTING METHODS ANALYST) Glucose, POC 144(H) 70 - 140 mg/dL [facility] Comment: For Glucose values <35 mg/dl when Hematocrit is >60 mg/dl,the test may not accurately detect significant hypoglycemia,and testing in the Laboratory should be considered if clinically indicated. Blood 10/19/2023 12:0 1 AM ACCOUNTING METHODS ANALYST 10/19/2023 12:01 AM ACCOUNTING METHODS ANALYST Jaqueline Valero MD LAB POCT ORDERABLES - APRIL CE Final Result Performing Organization Address [facility] Co de Phone Number [facility] [address] [facility] [place] [address] * POCT glucose (10/18/2023 11:03 PM ACCOUNTING METHODS ANALYST) Glucose, POC 106 70 - 140 mg/dL [facility] Comment: For Glucose values <35 mg/dl when Hematocrit is >60 mg/dl,the test may not accurately detect significant hypoglycemia,and testing in the Laboratory should be considered if clinically indicated. Blood 10/18/2023 11:0 3 PM ACCOUNTING METHODS ANALYST 10/18/2023 11:03 PM ACCOUNTING METHODS ANALYST Jaqueline Valero MD LAB POCT ORDERABLES - APRIL CE Final Result Performing Organization Address [facility] de Phone Number [facility] [address] [facility] [place] [address] * POCT glucose (10/18/2023 10:11 PM ACCOUNTING METHODS ANALYST) Glucose, POC 114 70 - 140 mg/dL [facility] Comment: For Glucose values <35 mg/dl when Hematocrit is >60 mg/dl,the test may not accurately detect significant hypoglycemia,and testing in the Laboratory should be considered if clinically indicated. Blood 10/18/2023 10:1 1 PM ACCOUNTING METHODS ANALYST 10/18/2023 10:11 PM ACCOUNTING METHODS ANALYST Jaqueline Valero MD LAB POCT ORDERABLES - APRIL CE Final Result Performing Organization Address [facility] Co de Phone Number [facility] [address] [facility] [employer] [place], [place] [id number] * (ABNORMAL) aPTT (10/18/2023 9:21 PM ACCOUNTING METHODS ANALYST) aPTT 43(H) 28 - 38 sec [facility] Comment: Interpretive Data Heparin therapeutic range: 66.0 - 100.0 seconds. Range based on correlation with therapeutic heparin activity range of 0.3 - 0.7 Units/mL. Current interpretive data was last revised on 2023. Blood 10/18/2023 9:21 PM ACCOUNTING METHODS ANALYST 10/18/2023 9:25 PM ACCOUNTING METHODS ANALYST Narrative [facility] - 10/18/2023 9:42 PM ACCOUNTING METHODS ANALYST Draw STAT PTT 6 hrs after initiation of heparin infusion, draw STAT PTT 6 hours after each dose change, and every 6 hours until 2 consecutive PTTs are within therapeutic range. Once two consecutive PTT's are therapeutic (46-70 seconds), then draw PTT every AM until heparin is discontinued. Jaqueline Valero MD LAB BLOOD ORDERABLES Final Result Performing Organization Address [facility] Co de Phone Number [facility] [address] [employer] [place], [place] [id number] * POCT glucose (10/18/2023 9:19 PM ACCOUNTING METHODS ANALYST) Glucose, POC 120 70 - 140 mg/dL [facility] Comment: For Glucose values <35 mg/dl when Hematocrit is >60 mg/dl,the test may not accurately detect significant hypoglycemia,and testing in the Laboratory should be considered if clinically indicated. Blood 10/18/2023 9:19 PM ACCOUNTING METHODS ANALYST 10/18/2023 9:19 PM ACCOUNTING METHODS ANALYST Jaqueline Valero MD LAB POCT ORDERABLES - APRIL CE Final Result Performing Organization Address [facility] Co de Phone Number [facility] [address] [facility] [employer] [place], [place] [phone] * POCT glucose (10/18/2023 8:37 PM ACCOUNTING METHODS ANALYST) Glucose, POC 120 70 - 140 mg/dL [facility] Comment: For Glucose values <35 mg/dl when Hematocrit is >60 mg/dl,the test may not accurately detect significant hypoglycemia,and testing in the Laboratory should be considered if clinically indicated. Blood 10/18/2023 8:37 PM ACCOUNTING METHODS ANALYST 10/18/2023 8:37 PM ACCOUNTING METHODS ANALYST Jaqueline Valero MD LAB POCT ORDERABLES - APRIL CE Final Result Performing Organization Address [facility] Co de Phone Number [facility] [address] [place] [address] * (ABNORMAL) Blood gas, arterial (10/18/2023 8:34 PM ACCOUNTING METHODS ANALYST) pH, Art 7.27(L) 7.35 - 7.45 [facility] PCO2, Arterial 46(H) 35 - 45 mmHg [facility] PO2, Arterial 88 83 - 108 mmHg [facility] HCO3 Art (Calculated) 21 20 - 30 mmol/L [facility] BE, art -6 mmol/L [facility] Comment: Interpretive Data No Reference Range Established Current Interpretive Data was last revised on 2017 O2 Sat Art (Calculated) 95 94 - 98 % [facility] Blood 10/18/2023 8:34 PM ACCOUNTING METHODS ANALYST 10/18/2023 8:40 PM ACCOUNTING METHODS ANALYST Gamal Fox NP LAB BLOOD ORDERABLES Final Result Performing Organization Address [facility] Co de Phone Number [facility] [address] [place] [address] * Critical Care (10/18/2023 6:49 PM ACCOUNTING METHODS ANALYST) Narrative Kirsten Burns MD - 10/18/2023 6:49 PM ACCOUNTING METHODS ANALYST Gamal Fox NP ? 10/19/2023 ??3:18 AM Critical Care Performed by: Gamal Fox NP Authorized by: Gamal Fox NP ?? CRITICAL CARE: ??Team: ??[facility] CT ??Shift: ??PM ??Level of Billing: ??Critical [...] plan with the ICU team and other medical/web consultant staff, making frequent assessments and decisions [...] Result * POCT glucose (10/18/2023 6:38 PM ACCOUNTING METHODS ANALYST) Glucose, POC 135 70 - 140 mg/dL [facility] Comment: For Glucose values <35 mg/dl when Hematocrit is >60 mg/dl,the test may not accurately detect significant hypoglycemia,and testing in the Laboratory should be considered if clinically indicated. Blood 10/18/2023 6:38 PM ACCOUNTING METHODS ANALYST 10/18/2023 6:38 PM ACCOUNTING METHODS ANALYST Jaqueline Valero MD LAB POCT ORDERABLES - APRIL CE Final Result [facility] [address] [place] [address] * POCT glucose (10/18/2023 5:45 PM ACCOUNTING METHODS ANALYST) Glucose, POC 132 70 - 140 mg/dL [facility] Comment: For Glucose values <35 mg/dl when Hematocrit is >60 mg/dl,the test may not accurately detect significant hypoglycemia,and testing in the Laboratory should be considered if clinically indicated. Blood 10/18/2023 5:45 PM ACCOUNTING METHODS ANALYST 10/18/2023 5:45 PM ACCOUNTING METHODS ANALYST us Jaqueline Valero MD LAB POCT ORDERABLES - APRIL CE Final Result [facility] [address] [place] [address] * XR Kub (10/18/2023 5:42 PM ACCOUNTING METHODS ANALYST) Anatomical Region Laterality Modality Body, Abdomen N/A Computed Radiogr aphy 10/18/2023 5:50 PM ACCOUNTING METHODS ANALYST Impressions 10/18/2023 5:50 PM ACCOUNTING METHODS ANALYST FINDINGS/IMPRESSION: ?? Apically oriented left-sided chest tubes and mediastinal drains. Overall paucity of gas distended bowel loops within the abdomen and pelvis. ??No visualized dilated bowel loops. ??No large volume of intraperitoneal free air, although evaluation is limited with supine positioning. ??A Nguyen catheter temperature probe is present. ??No acute osseous abnormality. Electronically signed by: Camilo Cheatham MD Narrative 10/18/2023 5:50 PM ACCOUNTING METHODS ANALYST EXAMINATION: XR KUB HISTORY: Nausa vomiting VIEWS: [...] Result * POCT glucose (10/18/2023 4:47 PM ACCOUNTING METHODS ANALYST) [facility] Signature Glucose, POC 138 70 - 140 mg/dL [facility] Comment: For Glucose values <35 mg/dl when Hematocrit is >60 mg/dl,the test may not accurately detect significant hypoglycemia,and testing in the Laboratory should be considered if clinically indicated. Blood 10/18/2023 4:47 PM ACCOUNTING METHODS ANALYST 10/18/2023 4:47 PM ACCOUNTING METHODS ANALYST Result [facility] Jaqueline Valero MD LAB POCT ORDERABLES - APRIL CE Final Result Performing Organization Address [facility] de Phone Number [facility] [address] [place] [address] * aPTT (10/18/2023 2:55 PM ACCOUNTING METHODS ANALYST) aPTT 38 28 - 38 sec [facility] Comment: Interpretive Data Heparin therapeutic range: 66.0 - 100.0 seconds. Range based on correlation with therapeutic heparin activity range of 0.3 - 0.7 Units/mL. Current interpretive data was last revised on 2023. Blood 10/18/2023 2:55 PM ACCOUNTING METHODS ANALYST 10/18/2023 3:16 PM ACCOUNTING METHODS ANALYST Result [facility] Jaqueline Valero MD LAB BLOOD ORDERABLES Final Result Performing Organization Address [facility] de Phone Number [facility] [address] [place] [address] * POCT glucose (10/18/2023 2:52 PM ACCOUNTING METHODS ANALYST) Glucose, POC 104 70 - 140 mg/dL [facility] Comment: For Glucose values <35 mg/dl when Hematocrit is >60 mg/dl,the test may not accurately detect significant hypoglycemia,and testing in the Laboratory should be considered if clinically indicated. Blood 10/18/2023 2:52 PM ACCOUNTING METHODS ANALYST 10/18/2023 2:52 PM ACCOUNTING METHODS ANALYST Result [facility] Jaqueline Valero MD LAB POCT ORDERABLES - APRIL CE Final Result Performing Organization Address [facility] Co de Phone Number [facility] [address] [facility] [place] [address] * POCT glucose (10/18/2023 1:53 PM ACCOUNTING METHODS ANALYST) Glucose, POC 87 70 - 140 mg/dL [facility] Comment: For Glucose values <35 mg/dl when Hematocrit is >60 mg/dl,the test may not accurately detect significant hypoglycemia,and testing in the Laboratory should be considered if clinically indicated. Blood 10/18/2023 1:53 PM ACCOUNTING METHODS ANALYST 10/18/2023 1:53 PM ACCOUNTING METHODS ANALYST Jaqueline Valero MD LAB POCT ORDERABLES - APRIL CE Final Result Performing Organization Address [facility] Co de Phone Number [facility] [address] [facility] [place] [address] * POCT glucose (10/18/2023 12:48 PM ACCOUNTING METHODS ANALYST) Glucose, POC 83 70 - 140 mg/dL [facility] Comment: For Glucose values <35 mg/dl when Hematocrit is >60 mg/dl,the test may not accurately detect significant hypoglycemia,and testing in the Laboratory should be considered if clinically indicated. Blood 10/18/2023 12:4 8 PM ACCOUNTING METHODS ANALYST 10/18/2023 12:48 PM ACCOUNTING METHODS ANALYST Jaqueline Valero MD LAB POCT ORDERABLES - APRIL CE Final Result Performing Organization Address [facility] Co de Phone Number [facility] [address] [facility] [place] [address] * POCT glucose (10/18/2023 12:00 PM ACCOUNTING METHODS ANALYST) Glucose, POC 81 70 - 140 mg/dL [facility] Comment: For Glucose values <35 mg/dl when Hematocrit is >60 mg/dl,the test may not accurately detect significant hypoglycemia,and testing in the Laboratory should be considered if clinically indicated. Blood 10/18/2023 12:0 0 PM ACCOUNTING METHODS ANALYST 10/18/2023 12:00 PM ACCOUNTING METHODS ANALYST Jaqueline Valero MD LAB POCT ORDERABLES - APRIL CE Final Result Performing Organization Address [facility] Co de Phone Number [facility] [address] [place] [address] * POCT glucose (10/18/2023 10:57 AM ACCOUNTING METHODS ANALYST) Glucose, POC 76 70 - 140 mg/dL [facility] Comment: For Glucose values <35 mg/dl when Hematocrit is >60 mg/dl,the test may not accurately detect significant hypoglycemia,and testing in the Laboratory should be considered if clinically indicated. Blood 10/18/2023 10:5 7 AM ACCOUNTING METHODS ANALYST 10/18/2023 10:57 AM ACCOUNTING METHODS ANALYST Jaqueline Valero MD LAB POCT ORDERABLES - APRIL CE Final Result Performing Organization Address [facility] de Phone Number [facility] [address] [facility] [place] [address] * POCT glucose (10/18/2023 9:52 AM ACCOUNTING METHODS ANALYST) Glucose, POC 92 70 - 140 mg/dL [facility] Comment: For Glucose values <35 mg/dl when Hematocrit is >60 mg/dl,the test may not accurately detect significant hypoglycemia,and testing in the Laboratory should be considered if clinically indicated. Blood 10/18/2023 9:52 AM ACCOUNTING METHODS ANALYST 10/18/2023 9:52 AM ACCOUNTING METHODS ANALYST Jaqueline Valero MD LAB POCT ORDERABLES - APRIL CE Final Result Performing Organization Address [facility] Co de Phone Number [facility] [address] [place] [address] * POCT glucose (10/18/2023 8:46 AM ACCOUNTING METHODS ANALYST) Glucose, POC 115 70 - 140 mg/dL [facility] Comment: For Glucose values <35 mg/dl when Hematocrit is >60 mg/dl,the test may not accurately detect significant hypoglycemia,and testing in the Laboratory should be considered if clinically indicated. Blood 10/18/2023 8:46 AM ACCOUNTING METHODS ANALYST 10/18/2023 8:46 AM ACCOUNTING METHODS ANALYST Jaqueline Valero MD LAB POCT ORDERABLES - APRIL CE Final Result Performing Organization Address [facility] Co de Phone Number [facility] [address] [place] [address] * POCT glucose (10/18/2023 7:58 AM ACCOUNTING METHODS ANALYST) [facility] Signature Glucose, POC 130 70 - 140 mg/dL [facility] Comment: For Glucose values <35 mg/dl when Hematocrit is >60 mg/dl,the test may not accurately detect significant hypoglycemia,and testing in the Laboratory should be considered if clinically indicated. Blood 10/18/2023 7:58 AM ACCOUNTING METHODS ANALYST 10/18/2023 7:58 AM ACCOUNTING METHODS ANALYST Jaqueline Valero MD LAB POCT ORDERABLES - APRIL CE Final Result Performing Organization Address [facility] de Phone Number [facility] [address] Department [place] [employer] [place] [place] [address] * Critical Care (10/18/2023 7:27 AM ACCOUNTING METHODS ANALYST) Narrative Kirsten Burns MD - 10/18/2023 7:27 AM ACCOUNTING METHODS ANALYST Dawna Castellanos NP ? 10/18/2023 ??2:29 PM Critical Care Performed by: Dawna Castellanos NP Authorized by: Dawna Castellanos NP ?? CRITICAL CARE: ??Team: ??[facility] ??Shift: ??AM ??Level of Billing: ??Critical [...] plan with the ICU team and other medical/web consultant staff, making frequent assessments and decisions [...] monitors, laboratory results, and imaging Dawna Castellanos ANIMAL HUSBANDRY TECHNICIAN IN CLINIC/BEDSIDE ORDERAB LES Final Result * (ABNORMAL) POCT glucose (10/18/2023 7:02 AM ACCOUNTING METHODS ANALYST) Glucose, POC 169(H) 70 - 140 mg/dL [facility] Comment: For Glucose values <35 mg/dl when Hematocrit is >60 mg/dl,the test may not accurately detect significant hypoglycemia,and testing in the Laboratory should be considered if clinically indicated. Blood 10/18/2023 7:02 AM ACCOUNTING METHODS ANALYST 10/18/2023 7:02 AM ACCOUNTING METHODS ANALYST Result [facility] Jaqueline Valero MD LAB POCT ORDERABLES - APRIL CE Final Result Performing Organization Address [facility]/State/ZIP Co de Phone Number [facility] [address] Department of Laboratories [place], [place] [id number] * (ABNORMAL) POCT glucose (10/18/2023 6:04 AM ACCOUNTING METHODS ANALYST) Glucose, POC 196(H) 70 - 140 mg/dL [facility] Comment: For Glucose values <35 mg/dl when Hematocrit is >60 mg/dl,the test may not accurately detect significant hypoglycemia,and testing in the Laboratory should be considered if clinically indicated. Blood 10/18/2023 6:04 AM ACCOUNTING METHODS ANALYST 10/18/2023 6:04 AM ACCOUNTING METHODS ANALYST Jaqueline Valero MD LAB POCT ORDERABLES - APRIL CE Final Result ALESSANDR[facility] [address] [place] [address] * XR Chest 1 View - Portable - in AM (10/18/2023 5:38 AM ACCOUNTING METHODS ANALYST) Anatomical Region Laterality Modality Body, Chest N/A Computed Radiogr aphy 10/18/2023 9:33 AM ACCOUNTING METHODS ANALYST Impressions 10/18/2023 9:33 AM ACCOUNTING METHODS ANALYST Comparison 10/17/2023 at 1:37 PM. ??Median sternotomy wires and sternal plates again seen. ??Aortic valve replacement again noted. ??[place] catheter tip projects over the proximal portion [...] Ramirez Blake M.D. Narrative 10/18/2023 9:33 AM ACCOUNTING METHODS ANALYST EXAMINATION: Chest 1 view Procedure Note Ramirez Blake MD - 10/18/2023 EXAMINATION: Chest 1 view IMPRESSION: Comparison 10/17/2023 at 1:37 PM. Median sternotomy wires and sternal plates again seen. Aortic valve replacement again noted. [place]Daniel catheter tip projects over the proximal portion [...] signed by: Ramirez Blake M.D. Byron Olvera ANIMAL HUSBANDRY TECHNICIAN IMG XR PROCEDURES Final Result * (ABNORMAL) POCT glucose (10/18/2023 5:04 AM ACCOUNTING METHODS ANALYST) Glucose, POC 172(H) 70 - 140 mg/dL [facility] Comment: For Glucose values <35 mg/dl when Hematocrit is >60 mg/dl,the test may not accurately detect significant hypoglycemia,and testing in the Laboratory should be considered if clinically indicated. Blood 10/18/2023 5:04 AM ACCOUNTING METHODS ANALYST 10/18/2023 5:04 AM ACCOUNTING METHODS ANALYST Jaqueline Valero MD LAB POCT ORDERABLES - APRIL CE Final Result Performing Organization Address [facility] de Phone Number [facility] [address] [employer] [place], [place] [phone] * (ABNORMAL) POCT glucose (10/18/2023 4:03 AM ACCOUNTING METHODS ANALYST) Glucose, POC 165(H) 70 - 140 mg/dL [facility] Comment: For Glucose values <35 mg/dl when Hematocrit is >60 mg/dl,the test may not accurately detect significant hypoglycemia,and testing in the Laboratory should be considered if clinically indicated. Blood 10/18/2023 4:03 AM ACCOUNTING METHODS ANALYST 10/18/2023 4:03 AM ACCOUNTING METHODS ANALYST Jaqueline Valero MD LAB POCT ORDERABLES - APRIL CE Final Result Performing Organization Address [facility] Co de Phone Number [facility] [address] [facility] [place] [address] * (ABNORMAL) POCT glucose (10/18/2023 3:04 AM ACCOUNTING METHODS ANALYST) Glucose, POC 167(H) 70 - 140 mg/dL [facility] Comment: For Glucose values <35 mg/dl when Hematocrit is >60 mg/dl,the test may not accurately detect significant hypoglycemia,and testing in the Laboratory should be considered if clinically indicated. Blood 10/18/2023 3:04 AM ACCOUNTING METHODS ANALYST 10/18/2023 3:04 AM ACCOUNTING METHODS ANALYST Jaqueline Valero MD LAB POCT ORDERABLES - APRIL CE Final Result Performing Organization Address [facility] Co de Phone Number [facility] [address] [facility] [employer] [place], [place] [phone] * (ABNORMAL) POCT glucose (10/18/2023 1:57 AM ACCOUNTING METHODS ANALYST) Glucose, POC 178(H) 70 - 140 mg/dL [facility] Comment: For Glucose values <35 mg/dl when Hematocrit is >60 mg/dl,the test may not accurately detect significant hypoglycemia,and testing in the Laboratory should be considered if clinically indicated. Blood 10/18/2023 1:57 AM ACCOUNTING METHODS ANALYST 10/18/2023 1:57 AM ACCOUNTING METHODS ANALYST Jaqueline Valero MD LAB POCT ORDERABLES - APRIL CE Final Result Performing Organization Address [facility] de Phone Number [facility] [address] [facility] [employer] [place], [place] [phone] * (ABNORMAL) Fibrinogen (10/18/2023 1:54 AM ACCOUNTING METHODS ANALYST) [facility] Fibrinogen 435(H) 170 - 400 mg/dL [facility] Blood 10/18/2023 1:54 AM ACCOUNTING METHODS ANALYST 10/18/2023 2:14 AM ACCOUNTING METHODS ANALYST Jaqueline Valero MD LAB BLOOD ORDERABLES Final Result Performing Organization Address [facility] Co de Phone Number [facility] [address] [facility] [employer] [place], [place] [phone] * eGFR (10/18/2023 1:54 AM ACCOUNTING METHODS ANALYST) [facility] eGFR 5 mL/min/1. 73 m2 [facility] Comment: Interpretive Data Reference Interval [...] last reviewed 2021. Blood 10/18/2023 1:54 AM ACCOUNTING METHODS ANALYST 10/18/2023 2:14 AM ACCOUNTING METHODS ANALYST us Dawna Castellanos ANIMAL HUSBANDRY TECHNICIAN LAB BLOOD ORDERABLES Ann Marie kramer Result [facility] [address] [place] [address] * Blood gas, arterial (10/18/2023 1:54 AM ACCOUNTING METHODS ANALYST) pH, Art 7.35 7.35 - 7.45 [facility] PCO2, Arterial 38 35 - 45 mmHg [facility] PO2, Arterial 92 83 - 108 mmHg [facility] HCO3 Art (Calculated) 21 20 - 30 mmol/L [facility] BE, art -4 mmol/L [facility] Comment: Interpretive Data No Reference Range Established Current Interpretive Data was last revised on 2017 O2 Sat Art (Calculated) 97 94 - 98 % [facility] Blood 10/18/2023 1:54 AM ACCOUNTING METHODS ANALYST 10/18/2023 2:11 AM ACCOUNTING METHODS ANALYST Dawna Castellanos ANIMAL HUSBANDRY TECHNICIAN LAB BLOOD ORDERABLES Ann Marie l Result Performing Organization Address [facility] Co de Phone Number [facility] [address] Department [place] [address] * Protime-INR (10/18/2023 1:54 AM ACCOUNTING METHODS ANALYST) PT 13.4 10.3 - 13.7 sec [facility] INR 1.18 0.90 - 1.20 [facility] Comment: Interpretive data Oral anticoagulant therapeutic ranges: Venous thromboembolism prophylaxis or treatment: 2.0-3.0 CARDIOLOGY Standard range: 2.0-3.0 High-intensity range: 2.5-3.5 Refer to indication-specific guidelines for appropriate target ranges for prosthetic heart valve replacement. Current interpretive data was last revised on 2019. Blood 10/18/2023 1:54 AM ACCOUNTING METHODS ANALYST 10/18/2023 2:14 AM ACCOUNTING METHODS ANALYST Jaqueline Valero MD LAB BLOOD ORDERABLES Final Result Performing Organization Address [facility] Co de Phone Number [facility] [address] [facility] [place] [address] * Magnesium (10/18/2023 1:54 AM ACCOUNTING METHODS ANALYST) Magnesium 2.5 1.4 - 2.5 mg/dL [facility] Blood 10/18/2023 1:54 AM ACCOUNTING METHODS ANALYST 10/18/2023 2:14 AM ACCOUNTING METHODS ANALYST Byron Olvera ANIMAL HUSBANDRY TECHNICIAN LAB BLOOD ORDERABLES Fi nal Result Performing Organization Address [facility] Co de Phone Number [facility] [address] Department [place] [address] * Calcium, ionized (10/18/2023 1:54 AM ACCOUNTING METHODS ANALYST) Calcium, Ionized 4.94 4.50 - 5.10 mg/dL [facility] Blood 10/18/2023 1:54 AM ACCOUNTING METHODS ANALYST 10/18/2023 2:12 AM ACCOUNTING METHODS ANALYST us Byron Olvera ANIMAL HUSBANDRY TECHNICIAN LAB BLOOD ORDERABLES Fi nal Result [facility] [address] [place] [address] * (ABNORMAL) Renal function panel (10/18/2023 1:54 AM ACCOUNTING METHODS ANALYST) Pathologist [facility] Sodium 136 135 - 145 mmol/L [facility] Potassium, pl 4.0 3.3 - 4.9 mmol/L [facility] Chloride 98 97 - 110 mmol/L [facility] CO2 20(L) 22 - 32 mmol/L [facility] Anion gap 18(H) 2 - 15 mmol/L [facility] BUN 71(H) 6 - 25 mg/dL [facility] Creatinine 10.47(H) 0.80 - 1.30 mg/dL [facility] Glucose 174 70 - 199 mg/dL [facility] Comment: Interpretive Data Fasting glucose [...] 2022. Calcium 9.2 8.5 - 10.3 mg/dL [facility] Phosphorus, pl 6.5(H) 2.3 - 4.5 mg/dL [facility] Albumin 2.6(L) 3.5 - 5.0 g/dL [facility] Blood 10/18/2023 1:54 AM ACCOUNTING METHODS ANALYST 10/18/2023 2:14 AM ACCOUNTING METHODS ANALYST Byron Olvera NP LAB BLOOD ORDERABLES Fi nal Result Performing Organization Address [facility] Co de Phone Number [facility] [address] [place] [employer] [place] [address] * (ABNORMAL) CBC without differential (10/18/2023 1:54 AM ACCOUNTING METHODS ANALYST) [facility] WBC 8.3 3.8 - 9.9 K/cumm [facility] Hgb 8.5(L) 13.0 - 17.5 g/dL [facility] Hct 26.4(L) 38.9 - 50.3 % [facility] Plt 164 150 - 400 K/cumm [facility] MPV 11.1 9.1 - 12.3 fL [facility] RBC 2.89(L) 4.30 - 5.80 M/cumm [facility] MCV 91.3 81.3 - 96.4 fL [facility] MCH 29.4 27.1 - 33.3 pg [facility] MCHC 32.2(L) 32.3 - 35.7 g/dL [facility] RDW CV 15.5(H) 11.1 - 14.9 % [facility] RDW SD 49.9(H) 35.7 - 48.1 fL [facility] NRBC abs 0.02(H) 0.00 - 0.01 K/cumm [facility] Blood 10/18/2023 1:54 AM ACCOUNTING METHODS ANALYST 10/18/2023 2:14 AM ACCOUNTING METHODS ANALYST Byron Olvera NP LAB BLOOD ORDERABLES Fi nal Result Performing Organization Address City/[facility]/ZIP Co de Phone Number [facility] [address] Department of [employer] [place], [place] [phone] * (ABNORMAL) POCT glucose (10/18/2023 12:57 AM ACCOUNTING METHODS ANALYST) [facility] Glucose, POC 169(H) 70 - 140 mg/dL [facility] Comment: For Glucose values <35 mg/dl when Hematocrit is >60 mg/dl,the test may not accurately detect significant hypoglycemia,and testing in the Laboratory should be considered if clinically indicated. Blood 10/18/2023 12:5 7 AM ACCOUNTING METHODS ANALYST 10/18/2023 12:57 AM ACCOUNTING METHODS ANALYST Jaqueline Valero MD LAB POCT ORDERABLES - APRIL CE Final Result Performing Organization Address [facility] de Phone Number [facility] [address] [place] [address] * (ABNORMAL) POCT glucose (10/18/2023 12:04 AM ACCOUNTING METHODS ANALYST) Glucose, POC 150(H) 70 - 140 mg/dL [facility] Comment: For Glucose values <35 mg/dl when Hematocrit is >60 mg/dl,the test may not accurately detect significant hypoglycemia,and testing in the Laboratory should be considered if clinically indicated. Blood 10/18/2023 12:0 4 AM ACCOUNTING METHODS ANALYST 10/18/2023 12:04 AM ACCOUNTING METHODS ANALYST Result [facility] Jaqueline Valero MD LAB POCT ORDERABLES - APRIL CE Final Result Performing Organization Address [facility] de Phone Number [facility] [address] [facility] [place] [address] * POCT glucose (10/17/2023 11:00 PM ACCOUNTING METHODS ANALYST) Glucose, POC 111 70 - 140 mg/dL [facility] Comment: For Glucose values <35 mg/dl when Hematocrit is >60 mg/dl,the test may not accurately detect significant hypoglycemia,and testing in the Laboratory should be considered if clinically indicated. Blood 10/17/2023 11:0 0 PM ACCOUNTING METHODS ANALYST 10/17/2023 11:00 PM ACCOUNTING METHODS ANALYST Jaqueline Valero MD LAB POCT ORDERABLES - APRIL CE Final Result Performing Organization Address [facility]/ZIP Co de Phone Number [facility] [address] Department [place] [address] * (ABNORMAL) Blood gas, arterial (10/17/2023 10:56 PM ACCOUNTING METHODS ANALYST) [facility] pH, Art 7.33(L) 7.35 - 7.45 [facility] PCO2, Arterial 38 35 - 45 mmHg [facility] PO2, Arterial 102 83 - 108 mmHg [facility] HCO3 Art (Calculated) 20 20 - 30 mmol/L [facility] BE, art -5 mmol/L [facility] Comment: Interpretive Data No Reference Range Established Current Interpretive Data was last revised on 2017 O2 Sat Art (Calculated) 97 94 - 98 % [facility] Blood 10/17/2023 10:5 6 PM ACCOUNTING METHODS ANALYST 10/17/2023 11:05 PM ACCOUNTING METHODS ANALYST Dawna Castellanos ANIMAL HUSBANDRY TECHNICIAN LAB BLOOD ORDERABLES Ann Marie l Result [facility] [address] [place] [address] * (ABNORMAL) Differential, auto (10/17/2023 10:55 PM ACCOUNTING METHODS ANALYST) [facility] Neutrophil abs 5.7 1.5 - 6.5 K/cumm [facility] Imm gran abs 0.1 0.0 - 0.1 K/cumm [facility] Lymphocyte abs 0.7(L) 0.8 - 3.3 K/cumm [facility] Monocyte abs 1.1(H) 0.2 - 0.8 K/cumm [facility] Eosinophil abs 0.1 0.0 - 0.5 K/cumm [facility] Basophil abs 0.0 0.0 - 0.1 K/cumm [facility] Neutrophil pct 73.6 % [facility] Comment: Interpretive Data Percent cell count reference ranges are not reported, since discordance with absolute values may lead to misinterpretation of CBC data. Current Interpretive Data was last revised on 2017. Imm gran pct 1.8 % [facility] Comment: Interpretive Data Percent cell count reference ranges are not reported, since discordance with absolute values may lead to misinterpretation of CBC data. Current Interpretive Data was last revised on 2017. Lymphocyte pct 9.3 % [facility] Comment: Interpretive Data Percent cell count reference ranges are not reported, since discordance with absolute values may lead to misinterpretation of CBC data. Current Interpretive Data was last revised on 2017. Monocyte pct 13.7 % [facility] Comment: Interpretive Data Percent cell count reference ranges are not reported, since discordance with absolute values may lead to misinterpretation of CBC data. Current Interpretive Data was last revised on 2017. Eosinophil pct 1.3 % [facility] Comment: Interpretive Data Percent cell count reference ranges are not reported, since discordance with absolute values may lead to misinterpretation of CBC data. Current Interpretive Data was last revised on 2017. Basophil pct 0.3 % [facility] Comment: Interpretive Data Percent cell count reference ranges are not reported, since discordance with absolute values may lead to misinterpretation of CBC data. Current Interpretive Data was last revised on 2017. Blood 10/17/2023 10:5 5 PM ACCOUNTING METHODS ANALYST 10/17/2023 11:19 PM ACCOUNTING METHODS ANALYST Gamal Fox NP LAB BLOOD ORDERABLES Final Result Performing Organization Address [facility]/ZIP Co de Phone Number [facility] [address] Department [place] [address] * Lactate (10/17/2023 10:55 PM ACCOUNTING METHODS ANALYST) Lactate 0.9 0.7 - 2.0 mmol/L [facility] Blood 10/17/2023 10:5 5 PM ACCOUNTING METHODS ANALYST 10/17/2023 11:04 PM ACCOUNTING METHODS ANALYST Gamal Fox NP LAB BLOOD ORDERABLES Final Result Performing Organization Address [facility]/ZIP Co de Phone Number [facility] [address] Department [place] [address] * Calcium, ionized (10/17/2023 10:55 PM ACCOUNTING METHODS ANALYST) [facility] Calcium, Ionized 4.51 4.50 - 5.10 mg/dL [facility] Blood 10/17/2023 10:5 5 PM ACCOUNTING METHODS ANALYST 10/17/2023 11:05 PM ACCOUNTING METHODS ANALYST Gamal Fox ANIMAL HUSBANDRY TECHNICIAN LAB BLOOD ORDERABLES Final Result Performing Organization Address [facility]/ZIP Co de Phone Number [facility] [address] [place] [employer] [place] [address] * (ABNORMAL) CBC with auto differential (10/17/2023 10:55 PM ACCOUNTING METHODS ANALYST) [facility] WBC 7.7 3.8 - 9.9 K/cumm [facility] Hgb 8.8(L) 13.0 - 17.5 g/dL [facility] Hct 27.2(L) 38.9 - 50.3 % [facility] Plt 165 150 - 400 K/cumm [facility] MPV 11.0 9.1 - 12.3 fL [facility] RBC 2.94(L) 4.30 - 5.80 M/cumm [facility] MCV 92.5 81.3 - 96.4 fL [facility] MCH 29.9 27.1 - 33.3 pg [facility] MCHC 32.4 32.3 - 35.7 g/dL [facility] RDW CV 15.6(H) 11.1 - 14.9 % [facility] RDW SD 50.5(H) 35.7 - 48.1 fL [facility] NRBC abs 0.03(H) 0.00 - 0.01 K/cumm [facility] Blood 10/17/2023 10:5 5 PM ACCOUNTING METHODS ANALYST 10/17/2023 11:19 PM ACCOUNTING METHODS ANALYST Gamal Fox ANIMAL HUSBANDRY TECHNICIAN LAB BLOOD ORDERABLES Final Result Performing Organization Address City/[facility]/ZIP Co de Phone Number [facility] [address] [place] [employer] [place] [address] * POCT glucose (10/17/2023 10:19 PM ACCOUNTING METHODS ANALYST) Glucose, POC 97 70 - 140 mg/dL [facility] Comment: For Glucose values <35 mg/dl when Hematocrit is >60 mg/dl,the test may not accurately detect significant hypoglycemia,and testing in the Laboratory should be considered if clinically indicated. Blood 10/17/2023 10:1 9 PM ACCOUNTING METHODS ANALYST 10/17/2023 10:19 PM ACCOUNTING METHODS ANALYST Jaqueline Valero MD LAB POCT ORDERABLES - APRIL CE Final Result Performing Organization Address [facility] Co de Phone Number [facility] [address] [facility] [place] [address] * POCT glucose (10/17/2023 9:00 PM ACCOUNTING METHODS ANALYST) Glucose, POC 127 70 - 140 mg/dL [facility] Comment: For Glucose values <35 mg/dl when Hematocrit is >60 mg/dl,the test may not accurately detect significant hypoglycemia,and testing in the Laboratory should be considered if clinically indicated. Blood 10/17/2023 9:00 PM ACCOUNTING METHODS ANALYST 10/17/2023 9:00 PM ACCOUNTING METHODS ANALYST Jaqueline Valero MD LAB POCT ORDERABLES - APRIL CE Final Result Performing Organization Address [facility] Co de Phone Number [facility] [address] [facility] [place] [address] * Transfuse RBC (10/17/2023 8:13 PM ACCOUNTING METHODS ANALYST) Blood Kirsten Burns MD BLOOD TRANSFUSION ORDERA BLES Final Result Performing Organization Address [facility] Co de Phone Number [facility] [address] [facility] [place] [address] * Transfuse RBC: 1 Units (10/17/2023 8:13 PM ACCOUNTING METHODS ANALYST) Blood Kirsten Burns MD BLOOD TRANSFUSION ORDERA BLES Final Result * (ABNORMAL) POCT glucose (10/17/2023 8:07 PM ACCOUNTING METHODS ANALYST) Glucose, POC 157(H) 70 - 140 mg/dL [facility] Comment: For Glucose values <35 mg/dl when Hematocrit is >60 mg/dl,the test may not accurately detect significant hypoglycemia,and testing in the Laboratory should be considered if clinically indicated. Blood 10/17/2023 8:07 PM ACCOUNTING METHODS ANALYST 10/17/2023 8:07 PM ACCOUNTING METHODS ANALYST Jaqueline Valero MD LAB POCT ORDERABLES - APRIL CE Final Result Performing Organization Address [facility] Co de Phone Number [facility] [address] [employer] [place], [place] [id number] * POCT glucose (10/17/2023 7:18 PM ACCOUNTING METHODS ANALYST) Glucose, POC 135 70 - 140 mg/dL [facility] Comment: For Glucose values <35 mg/dl when Hematocrit is >60 mg/dl,the test may not accurately detect significant hypoglycemia,and testing in the Laboratory should be considered if clinically indicated. Blood 10/17/2023 7:18 PM ACCOUNTING METHODS ANALYST 10/17/2023 7:18 PM ACCOUNTING METHODS ANALYST Jaqueline Valero MD LAB POCT ORDERABLES - APRIL CE Final Result Performing Organization Address [facility]/ZIP Co de Phone Number [facility] [address] [facility] [employer] [place], [place] [phone] * Critical Care (10/17/2023 6:42 PM ACCOUNTING METHODS ANALYST) Narrative Kirsten Burns MD - 10/17/2023 6:42 PM ACCOUNTING METHODS ANALYST Gamal Fox NP ? 10/18/2023 ??5:08 AM Critical Care Performed by: Gamal Fox NP Authorized by: Gamal Fox NP ?? CRITICAL CARE: ??Team: ??[facility] CT ??Shift: ??PM ??Level of Billing: ??Critical [...] plan with the ICU team and other medical/web consultant staff, making frequent assessments and decisions [...] Prepare RBC: 1 Units (10/17/2023 6:34 PM ACCOUNTING METHODS ANALYST) Product code [id number] Unit Number [id number] [id number] [facility] Product Blood Type APOS [facility] Dispense Status RETURNED [facility] Blood 10/17/2023 6:34 PM ACCOUNTING METHODS ANALYST Narrative [facility] - 10/19/2023 7:08 AM ACCOUNTING METHODS ANALYST Other indication->Bleeding post cardiac surgery Are special requirements needed? (All products are leukoreduced and CMV- safe)- >No Date required:-[id number] LRRBC # of [id number] Reasons:-Other (specify)} us Kirsten Burns MD BLOOD BANK PRODUCT ORDER ROVERTO Final Result [facility] [address] [place] [address] * Potassium (10/17/2023 6:14 PM ACCOUNTING METHODS ANALYST) [facility] Potassium, pl 4.2 3.3 - 4.9 mmol/L [facility] Blood 10/17/2023 6:14 PM ACCOUNTING METHODS ANALYST 10/17/2023 6:27 PM ACCOUNTING METHODS ANALYST Byron Olvera ANIMAL HUSBANDRY TECHNICIAN LAB BLOOD ORDERABLES Fi nal Result Performing Organization Address [facility]/ZIP Co de Phone Number [facility] [address] [place] [address] * (ABNORMAL) CBC without differential (10/17/2023 6:12 PM ACCOUNTING METHODS ANALYST) [facility] WBC 7.2 3.8 - 9.9 K/cumm [facility] Hgb 8.0(L) 13.0 - 17.5 g/dL [facility] Hct 24.7(L) 38.9 - 50.3 % [facility] Plt 161 150 - 400 K/cumm [facility] MPV 10.8 9.1 - 12.3 fL [facility] RBC 2.68(L) 4.30 - 5.80 M/cumm [facility] MCV 92.2 81.3 - 96.4 fL [facility] MCH 29.9 27.1 - 33.3 pg [facility] MCHC 32.4 32.3 - 35.7 g/dL [facility] RDW CV 15.5(H) 11.1 - 14.9 % [facility] RDW SD 50.4(H) 35.7 - 48.1 fL [facility] NRBC abs 0.04(H) 0.00 - 0.01 K/cumm [facility] Blood 10/17/2023 6:12 PM ACCOUNTING METHODS ANALYST 10/17/2023 6:18 PM ACCOUNTING METHODS ANALYST us Dawna Castellanos ANIMAL HUSBANDRY TECHNICIAN LAB BLOOD ORDERABLES Ann Marie l Result Performing Organization Address City/[facility]/ZIP Co de Phone Number [facility] [address] [place] [address] * (ABNORMAL) Protime-INR (10/17/2023 6:12 PM ACCOUNTING METHODS ANALYST) Pathologist [facility] PT 13.9(H) 10.3 - 13.7 sec [facility] INR 1.22(H) 0.90 - 1.20 [facility] Comment: Interpretive data Oral anticoagulant therapeutic ranges: Venous thromboembolism prophylaxis or treatment: 2.0-3.0 CARDIOLOGY Standard range: 2.0-3.0 High-intensity range: 2.5-3.5 Refer to indication-specific guidelines for appropriate target ranges for prosthetic heart valve replacement. Current interpretive data was last revised on 2019. Blood 10/17/2023 6:12 PM ACCOUNTING METHODS ANALYST 10/17/2023 6:18 PM ACCOUNTING METHODS ANALYST Dawna Castellanos ANIMAL HUSBANDRY TECHNICIAN LAB BLOOD ORDERABLES Ann Marie l Result Performing Organization Address [facility] de Phone Number [facility] [address] [place] [address] * Fibrinogen (10/17/2023 6:12 PM ACCOUNTING METHODS ANALYST) [facility] Fibrinogen 386 170 - 400 mg/dL [facility] Blood 10/17/2023 6:12 PM ACCOUNTING METHODS ANALYST 10/17/2023 6:18 PM ACCOUNTING METHODS ANALYST Dawna Bradshaw Castellanos ANIMAL HUSBANDRY TECHNICIAN LAB BLOOD ORDERABLES Ann Marie l Result Performing Organization Address [facility] de Phone Number [facility] [address] [place] [address] * aPTT (10/17/2023 6:12 PM ACCOUNTING METHODS ANALYST) [facility] aPTT 32 28 - 38 sec [facility] Comment: Interpretive Data Heparin therapeutic range: 66.0 - 100.0 seconds. Range based on correlation with therapeutic heparin activity range of 0.3 - 0.7 Units/mL. Current interpretive data was last revised on 2023. Blood 10/17/2023 6:12 PM ACCOUNTING METHODS ANALYST 10/17/2023 6:18 PM ACCOUNTING METHODS ANALYST Dawna Castellanos ANIMAL HUSBANDRY TECHNICIAN LAB BLOOD ORDERABLES Ann Marie l Result Performing Organization Address [facility] Co de Phone Number [facility] [address] Department [place] [address] * (ABNORMAL) Blood gas, arterial (10/17/2023 6:12 PM ACCOUNTING METHODS ANALYST) pH, Art 7.40 7.35 - 7.45 [facility] PCO2, Arterial 35 35 - 45 mmHg [facility] PO2, Arterial 69(L) 83 - 108 mmHg [facility] HCO3 Art (Calculated) 22 20 - 30 mmol/L [facility] BE, art -2 mmol/L [facility] Comment: Interpretive Data No Reference Range Established Current Interpretive Data was last revised on 2017 O2 Sat Art (Calculated) 94 94 - 98 % [facility] Blood 10/17/2023 6:12 PM ACCOUNTING METHODS ANALYST 10/17/2023 6:15 PM ACCOUNTING METHODS ANALYST Dawna Castellanos ANIMAL HUSBANDRY TECHNICIAN LAB BLOOD ORDERABLES Ann Marie l Result Performing Organization Address [facility] Co de Phone Number [facility] [address] [place] [address] * POCT glucose (10/17/2023 6:11 PM ACCOUNTING METHODS ANALYST) Glucose, POC 130 70 - 140 mg/dL [facility] Comment: For Glucose values <35 mg/dl when Hematocrit is >60 mg/dl,the test may not accurately detect significant hypoglycemia,and testing in the Laboratory should be considered if clinically indicated. Blood 10/17/2023 6:11 PM ACCOUNTING METHODS ANALYST 10/17/2023 6:11 PM ACCOUNTING METHODS ANALYST Jaqueline Valero MD LAB POCT ORDERABLES - APRIL CE Final Result Performing Organization Address [facility] Co de Phone Number [facility] [address] Department [place] [address] * Transfuse plasma Standard plasma (10/17/2023 5:46 PM ACCOUNTING METHODS ANALYST) Blood Result [facility] Kirsten Burns MD BLOOD TRANSFUSION ORDERA BLES Final Result Performing Organization Address [facility]/ZIP Co de Phone Number [facility] [address] [facility] [place] [address] * Transfuse plasma: 1 Units Standard plasma (10/17/2023 5:46 PM ACCOUNTING METHODS ANALYST) Blood Result [facility] Kirsten Burns MD BLOOD TRANSFUSION ORDERA BLES Final Result * Prepare plasma: 1 Units Standard plasma (10/17/2023 5:09 PM ACCOUNTING METHODS ANALYST) Product code [id number] Unit Number [id number] [facility] Product Blood Type APOS [facility] Dispense Status PRESUMED TRANSFUSED [facility] Blood (Blood, Venous) 10/17/2023 5:09 PM ACCOUNTING METHODS ANALYST Narrative [facility] - 10/17/2023 10:15 PM ACCOUNTING METHODS ANALYST Is this plasma order intended for a COVID-19 patient as convalescent plasma?->Standard plasma Special Requirements Needed?->No Date required:-[id number] FFP # of Units:-1-Units Reasons:-Active major bleeding with coagulopathy} Result [facility] Kirsten Burns MD BLOOD BANK PRODUCT ORDER ROVERTO Final Result Performing Organization Address City/[facility]/ZIP Co de Phone Number [facility] [address] [place] [address] * POCT glucose (10/17/2023 4:50 PM ACCOUNTING METHODS ANALYST) Glucose, POC 110 70 - 140 mg/dL [facility] Comment: For Glucose values <35 mg/dl when Hematocrit is >60 mg/dl,the test may not accurately detect significant hypoglycemia,and testing in the Laboratory should be considered if clinically indicated. Blood 10/17/2023 4:50 PM ACCOUNTING METHODS ANALYST 10/17/2023 4:50 PM ACCOUNTING METHODS ANALYST Result [facility] Jaqueline Valero MD LAB POCT ORDERABLES - APRIL CE Final Result Performing Organization Address [facility] de Phone Number [facility] [address] [place], [place] [id number] * Transfuse plasma Standard plasma (10/17/2023 4:33 PM ACCOUNTING METHODS ANALYST) Blood Result [facility] Kirsten Burns MD BLOOD TRANSFUSION ORDERA BLES Final Result Performing Organization Address [facility] de Phone Number [facility] [address] [place] [address] * Transfuse plasma: 1 Units Standard plasma (10/17/2023 4:33 PM ACCOUNTING METHODS ANALYST) Blood Result [facility] Kirsten Burns MD BLOOD TRANSFUSION ORDERA BLES Final Result * Transfuse RBC (10/17/2023 4:33 PM ACCOUNTING METHODS ANALYST) Blood Result [facility] Kirsten Burns MD BLOOD TRANSFUSION ORDERA BLES Final Result Performing Organization Address [facility] de Phone Number [facility] [address] [place] [address] * Transfuse RBC: 1 Units (10/17/2023 4:33 PM ACCOUNTING METHODS ANALYST) Blood Result [facility] Kirsten Burns MD BLOOD TRANSFUSION ORDERA BLES Final Result * (ABNORMAL) CBC without differential (10/17/2023 4:32 PM ACCOUNTING METHODS ANALYST) WBC 7.2 3.8 - 9.9 K/cumm [facility] Hgb 8.5(L) 13.0 - 17.5 g/dL [facility] Hct 26.4(L) 38.9 - 50.3 % [facility] Plt 166 150 - 400 K/cumm [facility] MPV 10.9 9.1 - 12.3 fL [facility] RBC 2.85(L) 4.30 - 5.80 M/cumm [facility] MCV 92.6 81.3 - 96.4 fL [facility] MCH 29.8 27.1 - 33.3 pg [facility] MCHC 32.2(L) 32.3 - 35.7 g/dL [facility] RDW CV 15.5(H) 11.1 - 14.9 % [facility] RDW SD 51.4(H) 35.7 - 48.1 fL [facility] NRBC abs 0.06(H) 0.00 - 0.01 K/cumm [facility] Blood 10/17/2023 4:32 PM ACCOUNTING METHODS ANALYST 10/17/2023 4:37 PM ACCOUNTING METHODS ANALYST us Dawna Castellanos ANIMAL HUSBANDRY TECHNICIAN LAB BLOOD ORDERABLES Ann Marie l Result Performing Organization Address City/[facility]/ZIP Co de Phone Number [facility] [address] [place] [place] [address] * (ABNORMAL) aPTT (10/17/2023 4:32 PM ACCOUNTING METHODS ANALYST) aPTT 63(H) 28 - 38 sec [facility] Comment: Interpretive Data Heparin therapeutic range: 66.0 - 100.0 seconds. Range based on correlation with therapeutic heparin activity range of 0.3 - 0.7 Units/mL. Current interpretive data was last revised on 2023. Blood 10/17/2023 4:32 PM ACCOUNTING METHODS ANALYST 10/17/2023 4:37 PM ACCOUNTING METHODS ANALYST Dawna Castellanos ANIMAL HUSBANDRY TECHNICIAN LAB BLOOD ORDERABLES Ann Marie l Result [facility] [address] [place] [address] * Fibrinogen (10/17/2023 4:32 PM ACCOUNTING METHODS ANALYST) Pathologist [facility] Fibrinogen 393 170 - 400 mg/dL [facility] Blood 10/17/2023 4:32 PM ACCOUNTING METHODS ANALYST 10/17/2023 4:37 PM ACCOUNTING METHODS ANALYST Dawna Castellanos ANIMAL HUSBANDRY TECHNICIAN LAB BLOOD ORDERABLES Ann Marie l Result Performing Organization Address [facility] de Phone Number [facility] [address] [place] [address] * (ABNORMAL) Protime-INR (10/17/2023 4:32 PM ACCOUNTING METHODS ANALYST) [facility] PT 14.0(H) 10.3 - 13.7 sec [facility] INR 1.23(H) 0.90 - 1.20 [facility] Comment: Interpretive data Oral anticoagulant therapeutic ranges: Venous thromboembolism prophylaxis or treatment: 2.0-3.0 CARDIOLOGY Standard range: 2.0-3.0 High-intensity range: 2.5-3.5 Refer to indication-specific guidelines for appropriate target ranges for prosthetic heart valve replacement. Current interpretive data was last revised on 2019. Blood 10/17/2023 4:32 PM ACCOUNTING METHODS ANALYST 10/17/2023 4:37 PM ACCOUNTING METHODS ANALYST Dawna Castellanos ANIMAL HUSBANDRY TECHNICIAN LAB BLOOD ORDERABLES Ann Marie l Result Performing Organization Address [facility] Co de Phone Number [facility] [address] [place] [address] * (ABNORMAL) Blood gas, arterial (10/17/2023 4:32 PM ACCOUNTING METHODS ANALYST) [facility] pH, Art 7.31(L) 7.35 - 7.45 [facility] PCO2, Arterial 45 35 - 45 mmHg [facility] PO2, Arterial 72(L) 83 - 108 mmHg [facility] HCO3 Art (Calculated) 23 20 - 30 mmol/L [facility] BE, art -4 mmol/L [facility] Comment: Interpretive Data No Reference Range Established Current Interpretive Data was last revised on 2017 O2 Sat Art (Calculated) 93(L) 94 - 98 % [facility] Blood 10/17/2023 4:32 PM ACCOUNTING METHODS ANALYST 10/17/2023 4:35 PM ACCOUNTING METHODS ANALYST us Dawna Castellanos ANIMAL HUSBANDRY TECHNICIAN LAB BLOOD ORDERABLES Ann Marie l Result Performing Organization Address [facility] Co de Phone Number [facility] [address] Department of [employer] [place], [place] [id number] * POCT glucose (10/17/2023 3:51 PM ACCOUNTING METHODS ANALYST) [facility] Glucose, POC 98 70 - 140 mg/dL [facility] Comment: For Glucose values <35 mg/dl when Hematocrit is >60 mg/dl,the test may not accurately detect significant hypoglycemia,and testing in the Laboratory should be considered if clinically indicated. Blood 10/17/2023 3:51 PM ACCOUNTING METHODS ANALYST 10/17/2023 3:51 PM ACCOUNTING METHODS ANALYST Jaqueline Valero MD LAB POCT ORDERABLES - APRIL CE Final Result Performing Organization Address [facility] Co de Phone Number [facility] [address] Department of [employer] [place], [place] [id number] * Prepare plasma: 1 Units Standard plasma (10/17/2023 3:32 PM ACCOUNTING METHODS ANALYST) [facility] Product code [id number] Unit Number [id number] [facility] Product Blood Type APOS [facility] Dispense Status PRESUMED TRANSFUSED [facility] Blood (Blood, Venous) 10/17/2023 3:32 PM ACCOUNTING METHODS ANALYST Narrative [facility] - 10/17/2023 10:15 PM ACCOUNTING METHODS ANALYST Is this plasma order intended for a COVID-19 patient as convalescent plasma?->Standard plasma Special Requirements Needed?->No Date required:-[id number] FFP # of Units:-1-Units Reasons:-Active major bleeding with coagulopathy} Kirsten Burns MD BLOOD BANK PRODUCT ORDER ROVERTO Final Result Performing Organization Address [facility] Co de Phone Number [facility] [address] Department [employer] [place], [place] [id number] * Prepare RBC: 1 Units (10/17/2023 3:32 PM ACCOUNTING METHODS ANALYST) [facility] Product code [id number] Unit Number [id number] [facility] Product Blood Type APOS [facility] Dispense Status RETURNED [facility] Blood 10/17/2023 3:32 PM ACCOUNTING METHODS ANALYST Narrative [facility] - 10/19/2023 7:08 AM ACCOUNTING METHODS ANALYST Are special requirements needed? (All products are leukoreduced and CMV- safe)- >No Date required:-[id number] LRRBC # of [id number] Reasons:-Hemorrhagic shock/Life-threatening bleeding} Kirsten Burns MD BLOOD BANK PRODUCT ORDER ROVERTO Final Result Performing Organization Address [facility] de Phone Number [facility] [address] Department [place] [address] * POCT glucose (10/17/2023 2:34 PM ACCOUNTING METHODS ANALYST) [facility] Glucose, POC 102 70 - 140 mg/dL [facility] Comment: For Glucose values <35 mg/dl when Hematocrit is >60 mg/dl,the test may not accurately detect significant hypoglycemia,and testing in the Laboratory should be considered if clinically indicated. Blood 10/17/2023 2:34 PM ACCOUNTING METHODS ANALYST 10/17/2023 2:34 PM ACCOUNTING METHODS ANALYST Jaqueline Valero MD LAB POCT ORDERABLES - APRIL CE Final Result Performing Organization Address [facility] Co de Phone Number [facility] [address] Department [employer] [place], [place] [id number] * XR Chest 1 View - Portable (10/17/2023 1:49 PM ACCOUNTING METHODS ANALYST) Anatomical Region Laterality Modality Body, Chest N/A Computed Radiogr aphy 10/17/2023 2:01 PM ACCOUNTING METHODS ANALYST Impressions 10/17/2023 2:01 PM ACCOUNTING METHODS ANALYST Comparison is made to two-view chest radiograph dated 10/16/2023. ??Endotracheal tube projects approximately 4.5 cm above the boni. ??Interval postoperative changes of median sternotomy with sternal wires, sternal plating, for aortic valve replacement. ??Right internal jugular central venous catheter overlies the superior vena cava. ??[place]-Daniel catheter tip projects over the main pulmonary artery. ??Left thoracostomy tube and mediastinal drain. ??Gastric tube courses caudally beneath left hemidiaphragm out of the [id number]. Lung volumes are small with minimal bibasilar atelectasis, left greater than right. ??Possible trace left pleural effusion. ??No pneumothorax. Electronically signed by: Tania Malone M.D. Narrative 10/17/2023 2:01 PM ACCOUNTING METHODS ANALYST EXAMINATION: 1 view chest radiograph Procedure Note Tania Malone MD - 10/17/2023 EXAMINATION: 1 view chest radiograph IMPRESSION: Comparison is made to two-view chest radiograph dated 10/16/2023. Endotracheal tube projects approximately 4.5 cm above the boni. Interval postoperative changes of median sternotomy with sternal wires, sternal plating, for aortic valve replacement. Right internal jugular central venous catheter overlies the superior vena cava. [place]-Daniel catheter tip projects over the main pulmonary artery. Left thoracostomy tube and mediastinal drain. Gastric tube courses caudally beneath left hemidiaphragm out of the [id number]. Lung volumes are small with minimal bibasilar atelectasis, left greater than right. Possible trace left pleural effusion. No pneumothorax. Electronically signed by: Tania Malone M.D. Dawna Castellanos ANIMAL HUSBANDRY TECHNICIAN IMG XR PROCEDURES Final R esult * Critical Care (10/17/2023 1:44 PM ACCOUNTING METHODS ANALYST) Narrative Kirsten Burns MD - 10/17/2023 1:44 PM ACCOUNTING METHODS ANALYST Dawna Castellanos NP ? 10/17/2023 ??4:35 PM Critical Care Performed by: Dawna Castellanos NP Authorized by: Dawna Castellanos NP ?? CRITICAL CARE: ??Team: ??[facility] ??Shift: ??AM ??Level of Billing: ??Critical [...] plan with the ICU team and other medical/web consultant staff, making frequent assessments and decisions [...] Final Result * eGFR (10/17/2023 1:27 PM ACCOUNTING METHODS ANALYST) [facility] eGFR 5 mL/min/1. 73 m2 [facility] Comment: Interpretive Data Reference Interval [...] last reviewed 2021. Blood 10/17/2023 1:27 PM ACCOUNTING METHODS ANALYST 10/17/2023 1:37 PM ACCOUNTING METHODS ANALYST Dawna Castellanos ANIMAL HUSBANDRY TECHNICIAN LAB BLOOD ORDERABLES Ann Marie l Result Performing Organization Address [facility] Co de Phone Number [facility] [address] [facility] [place] [address] * Fibrinogen (10/17/2023 1:27 PM ACCOUNTING METHODS ANALYST) Fibrinogen 393 170 - 400 mg/dL [facility] Blood 10/17/2023 1:27 PM ACCOUNTING METHODS ANALYST 10/17/2023 1:37 PM ACCOUNTING METHODS ANALYST Dawna Castellanos ANIMAL HUSBANDRY TECHNICIAN LAB BLOOD ORDERABLES Ann Marie l Result Performing Organization Address [facility] Co de Phone Number [facility] [address] Department [place] [address] * Lactate (10/17/2023 1:27 PM ACCOUNTING METHODS ANALYST) Lactate 1.2 0.7 - 2.0 mmol/L [facility] Blood 10/17/2023 1:27 PM ACCOUNTING METHODS ANALYST 10/17/2023 1:33 PM ACCOUNTING METHODS ANALYST Dawna Castellanos ANIMAL HUSBANDRY TECHNICIAN LAB BLOOD ORDERABLES Ann Marie l Result Performing Organization Address [facility] Co de Phone Number [facility] [address] [facility] [place] [address] * aPTT (10/17/2023 1:27 PM ACCOUNTING METHODS ANALYST) Pathologist [facility] aPTT 37 28 - 38 sec [facility] Comment: Interpretive Data Heparin therapeutic range: 66.0 - 100.0 seconds. Range based on correlation with therapeutic heparin activity range of 0.3 - 0.7 Units/mL. Current interpretive data was last revised on 2023. Blood 10/17/2023 1:27 PM ACCOUNTING METHODS ANALYST 10/17/2023 1:37 PM ACCOUNTING METHODS ANALYST Dawna Castellanos ANIMAL HUSBANDRY TECHNICIAN LAB BLOOD ORDERABLES Ann Marie l Result Performing Organization Address [facility] Co de Phone Number [facility] [address] [place] [address] * (ABNORMAL) Protime-INR (10/17/2023 1:27 PM ACCOUNTING METHODS ANALYST) [facility] PT 14.7(H) 10.3 - 13.7 sec [facility] INR 1.29(H) 0.90 - 1.20 [facility] Comment: Interpretive data Oral anticoagulant therapeutic ranges: Venous thromboembolism prophylaxis or treatment: 2.0-3.0 CARDIOLOGY Standard range: 2.0-3.0 High-intensity range: 2.5-3.5 Refer to indication-specific guidelines for appropriate target ranges for prosthetic heart valve replacement. Current interpretive data was last revised on 2019. Blood 10/17/2023 1:27 PM ACCOUNTING METHODS ANALYST 10/17/2023 1:37 PM ACCOUNTING METHODS ANALYST Dawna Castellanos ANIMAL HUSBANDRY TECHNICIAN LAB BLOOD ORDERABLES Ann Marie l Result Performing Organization Address [facility]/ZIP Co de Phone Number [facility] [address] [place] [address] * (ABNORMAL) CBC without differential (10/17/2023 1:27 PM ACCOUNTING METHODS ANALYST) Pathologist [facility] WBC 7.4 3.8 - 9.9 K/cumm [facility] Hgb 8.4(L) 13.0 - 17.5 g/dL [facility] Hct 26.0(L) 38.9 - 50.3 % [facility] Plt 167 150 - 400 K/cumm [facility] MPV 10.7 9.1 - 12.3 fL [facility] RBC 2.85(L) 4.30 - 5.80 M/cumm [facility] MCV 91.2 81.3 - 96.4 fL [facility] MCH 29.5 27.1 - 33.3 pg [facility] MCHC 32.3 32.3 - 35.7 g/dL [facility] RDW CV 15.4(H) 11.1 - 14.9 % [facility] RDW SD 49.8(H) 35.7 - 48.1 fL [facility] NRBC abs 0.06(H) 0.00 - 0.01 K/cumm [facility] Blood 10/17/2023 1:27 PM ACCOUNTING METHODS ANALYST 10/17/2023 1:37 PM ACCOUNTING METHODS ANALYST us Dawna Castellanos ANIMAL HUSBANDRY TECHNICIAN LAB BLOOD ORDERABLES Ann Marie kramer Result [facility] [address] Department [place] [address] * (ABNORMAL) Blood gas, arterial (10/17/2023 1:27 PM ACCOUNTING METHODS ANALYST) pH, Art 7.36 7.35 - 7.45 [facility] PCO2, Arterial 42 35 - 45 mmHg [facility] PO2, Arterial 65(L) 83 - 108 mmHg [facility] HCO3 Art (Calculated) 24 20 - 30 mmol/L [facility] BE, art -2 mmol/L [facility] Comment: Interpretive Data No Reference Range Established Current Interpretive Data was last revised on 2017 O2 Sat Art (Calculated) 92(L) 94 - 98 % [facility] Blood 10/17/2023 1:27 PM ACCOUNTING METHODS ANALYST 10/17/2023 1:33 PM ACCOUNTING METHODS ANALYST Dawna Castellanos ANIMAL HUSBANDRY TECHNICIAN LAB BLOOD ORDERABLES Ann Marie l Result Performing Organization Address City/[facility]/ZIP Co de Phone Number [facility] [address] [facility] [employer] [place], [place] [id number] * Calcium, ionized (10/17/2023 1:27 PM ACCOUNTING METHODS ANALYST) [facility] Calcium, Ionized 4.51 4.50 - 5.10 mg/dL [facility] Blood 10/17/2023 1:27 PM ACCOUNTING METHODS ANALYST 10/17/2023 1:34 PM ACCOUNTING METHODS ANALYST Dawna Castellanos ANIMAL HUSBANDRY TECHNICIAN LAB BLOOD ORDERABLES Ann Marie l Result Performing Organization Address [facility] Co de Phone Number [facility] [address] [facility] [place] [address] * Magnesium (10/17/2023 1:27 PM ACCOUNTING METHODS ANALYST) [facility] Magnesium 2.3 1.4 - 2.5 mg/dL [facility] Blood 10/17/2023 1:27 PM ACCOUNTING METHODS ANALYST 10/17/2023 1:37 PM ACCOUNTING METHODS ANALYST Dawna Castellanos ANIMAL HUSBANDRY TECHNICIAN LAB BLOOD ORDERABLES Ann Marie l Result Performing Organization Address [facility] Co de Phone Number [facility] [address] Department [place] [address] * (ABNORMAL) Basic metabolic panel (10/17/2023 1:27 PM ACCOUNTING METHODS ANALYST) Pathologist [facility] Sodium 139 135 - 145 mmol/L [facility] Potassium, pl 3.8 3.3 - 4.9 mmol/L [facility] Chloride 98 97 - 110 mmol/L [facility] CO2 23 22 - 32 mmol/L [facility] Anion gap 18(H) 2 - 15 mmol/L [facility] BUN 75(H) 6 - 25 mg/dL [facility] Creatinine 10.43(H) 0.80 - 1.30 mg/dL [facility] Glucose 119 70 - 199 mg/dL [facility] Comment: Interpretive Data Fasting glucose [...] 2022. Calcium 8.9 8.5 - 10.3 mg/dL [facility] Blood 10/17/2023 1:27 PM ACCOUNTING METHODS ANALYST 10/17/2023 1:37 PM ACCOUNTING METHODS ANALYST Dawna Castellanos ANIMAL HUSBANDRY TECHNICIAN LAB BLOOD ORDERABLES Ann Marie l Result Performing Organization Address [facility] Co de Phone Number [facility] [address] [place] [address] * (ABNORMAL) Phosphorus (10/17/2023 1:27 PM ACCOUNTING METHODS ANALYST) Pathologist [facility] Phosphorus, pl 6.1(H) 2.3 - 4.5 mg/dL [facility] Blood 10/17/2023 1:27 PM ACCOUNTING METHODS ANALYST 10/17/2023 1:37 PM ACCOUNTING METHODS ANALYST Dawna Castellanos ANIMAL HUSBANDRY TECHNICIAN LAB BLOOD ORDERABLES Ann Marie l Result Performing Organization Address City/[facility]/ZIP Co de Phone Number [facility] [address] [place] [employer] [place] [address] * POCT glucose (10/17/2023 1:25 PM ACCOUNTING METHODS ANALYST) Glucose, POC 137 70 - 140 mg/dL [facility] Comment: For Glucose values <35 mg/dl when Hematocrit is >60 mg/dl,the test may not accurately detect significant hypoglycemia,and testing in the Laboratory should be considered if clinically indicated. Blood 10/17/2023 1:25 PM ACCOUNTING METHODS ANALYST 10/17/2023 1:25 PM ACCOUNTING METHODS ANALYST us Jovani Kat DO LAB POCT ORDERABLES - DE VICE Final Result Performing Organization Address City/[facility]/ZIP Co de Phone Number [facility] [address] Department [place] [employer] [place] [address] * POC Activated Clotting Time, High Range (10/17/2023 12:26 PM ACCOUNTING METHODS ANALYST) [facility] ACT 104 87 - 138 sec [facility] Blood 10/17/2023 12:2 6 PM ACCOUNTING METHODS ANALYST 10/17/2023 12:26 PM ACCOUNTING METHODS ANALYST us Jaqueline Valero MD LAB BLOOD ORDERABLES Final Result Performing Organization Address [facility] Co de Phone Number [facility] [address] Department [place] [place] [address] * (ABNORMAL) POC Blood Gas and Chemistries, Arterial - (10/17/2023 12:26 PM ACCOUNTING METHODS ANALYST) [facility] pH, Art POC 7.31(L) 7.35 - 7.45 [facility] pCO2, Art POC 48(H) 35 - 45 mmHg [facility] pO2, Art POC 112(H) 80 - 108 mmHg [facility] Na, POC 134(L) 135 - 145 mmol/L [facility] K POC 4.0 3.3 - 4.9 mmol/L [facility] Comment: Interpretive Data This method is not able to assess for hemolysis, which may falsely increase potassium concentrations. If further testing is needed to evaluate this result, consider in-laboratory plasma potassium. Current Interpretive Data was last revised on 2022. Cl, POC 97 97 - 110 mmol/L [facility] Ionized Ca, POC 4.80 4.50 - 5.10 mg/dL [facility] Glucose, POC 147 70 - 199 mg/dL [facility] Lactate, POC 2.9(H) 0.0 - 2.0 mmol/L [facility] O2Hb, Art POC 96.7(H) 90.0 - 95.0 % [facility] Carboxhgb fract 0.8 0.0 - 2.9 % [facility] Methemoglobin 0.6 0.0 - 1.9 % [facility] HHb, POC 1.9 0.0 - 5.0 % [facility] SO2 (oren) arterial 98(H) 90 - 95 % [facility] Total CO2, Art POC 26 22 - 32 mmol/L [facility] BE, art, POC -2.1(L) -2.0 - 2.0 mmol/L [facility] HCO3, Art POC 23 20 - 30 mmol/L [facility] Hct, POC 24.0(L) 38.9 - 50.3 % [facility] Total Hb, POC 8.1(L) 13.0 - 17.5 g/dL [facility] Blood 10/17/2023 12:2 6 PM ACCOUNTING METHODS ANALYST 10/17/2023 12:26 PM ACCOUNTING METHODS ANALYST Jovani Kat DO LAB POCT ORDERABLES - DE VICE Final Result Performing Organization Address City/[facility]/ZIP Co de Phone Number [facility] [address] [facility] [place] [address] * Transfuse platelets (10/17/2023 12:24 PM ACCOUNTING METHODS ANALYST) Blood Ayden Alan MD BLOOD TRANSFUSION ORDERABLES F inal Result [facility] [address] [facility] [employer] [place], [place] [id number] * Transfuse RBC (10/17/2023 12:11 PM ACCOUNTING METHODS ANALYST) Blood us Ayden Alan MD BLOOD TRANSFUSION ORDERABLES F inal Result [facility] [address] [facility] [employer] [place], [place] [id number] * Prepare RBC: 2 Units (10/17/2023 12:11 PM ACCOUNTING METHODS ANALYST) Product code [id number] Unit Number [id number] [facility] Product Blood Type APOS [facility] Dispense Status PRESUMED TRANSFUSED [facility] Product code [id number] [facility] Unit Number [id number] [facility] Status PRESUMED TRANSFUSED [facility] Blood 10/17/2023 12:1 1 PM ACCOUNTING METHODS ANALYST Narrative [facility] - 10/18/2023 10:15 PM ACCOUNTING METHODS ANALYST Are special requirements needed? (All products are leukoreduced and CMV- safe)- >No Date required:-[id number] LRRBC # of [id number] Reasons:-Intra-op transfusion} Jaqueline Valero MD BLOOD BANK PRODUCT ORDERAB LES Final Result Performing Organization Address [facility] Co de Phone Number [facility] [address] Department [employer] [place], [place] [id number] * Transfuse cryoprecipitate (pooled units) (10/17/2023 12:05 PM ACCOUNTING METHODS ANALYST) Blood Ayden Alan MD BLOOD TRANSFUSION ORDERABLES F inal Result Performing Organization Address [facility]/ZIP Co de Phone Number [facility] [address] Department [place] [place] [address] * Transfuse cryoprecipitate (pooled units) (10/17/2023 12:05 PM ACCOUNTING METHODS ANALYST) Blood us Ayden Alan MD BLOOD TRANSFUSION ORDERABLES F inal Result Performing Organization Address [facility]/ZIP Co de Phone Number [facility] [address] Department [place] [place] [address] * Transfuse plasma (10/17/2023 12:04 PM ACCOUNTING METHODS ANALYST) Blood Ayden Alan MD BLOOD TRANSFUSION ORDERABLES F inal Result [facility] [address] Department [place] [place] [address] * Transfuse plasma (10/17/2023 12:04 PM ACCOUNTING METHODS ANALYST) Blood Ayden Alan MD BLOOD TRANSFUSION ORDERABLES F inal Result Performing Organization Address [facility] Co de Phone Number [facility] [address] Department [place] [address] * (ABNORMAL) POC Blood Gas and Chemistries, Arterial - (10/17/2023 11:51 AM ACCOUNTING METHODS ANALYST) pH, Art POC 7.36 7.35 - 7.45 [facility] pCO2, Art POC 39 35 - 45 mmHg [facility] pO2, Art POC 407(H) 80 - 108 mmHg [facility] Na, POC 131(L) 135 - 145 mmol/L [facility] K POC 5.5(H) 3.3 - 4.9 mmol/L [facility] Comment: Interpretive Data This method is not able to assess for hemolysis, which may falsely increase potassium concentrations. If further testing is needed to evaluate this result, consider in-laboratory plasma potassium. Current Interpretive Data was last revised on 2022. Cl, POC 97 97 - 110 mmol/L [facility] Ionized Ca, POC 3.99(L) 4.50 - 5.10 mg/dL [facility] Glucose, POC 115 70 - 199 mg/dL [facility] Lactate, POC 2.8(H) 0.0 - 2.0 mmol/L [facility] O2Hb, Art POC 97.2(H) 90.0 - 95.0 % [facility] Carboxhgb fract 0.0 0.0 - 2.9 % [facility] Methemoglobin 0.9 0.0 - 1.9 % [facility] HHb, POC 1.9 0.0 - 5.0 % [facility] SO2 (oren) arterial 98(H) 90 - 95 % [facility] Total CO2, Art POC 23 22 - 32 mmol/L [facility] BE, art, POC -3.2(L) -2.0 - 2.0 mmol/L [facility] HCO3, Art POC 22 20 - 30 mmol/L [facility] Hct, POC 24.0(L) 38.9 - 50.3 % [facility] Total Hb, POC 7.9(L) 13.0 - 17.5 g/dL [facility] Blood 10/17/2023 11:5 1 AM ACCOUNTING METHODS ANALYST 10/17/2023 11:51 AM ACCOUNTING METHODS ANALYST us Jovani Kat DO LAB POCT ORDERABLES - DE VICE Final Result Performing Organization Address [facility]/ZIP Co de Phone Number [facility] [address] Department [place] [address] * (ABNORMAL) POC Activated Clotting Time, High Range (10/17/2023 11:50 AM ACCOUNTING METHODS ANALYST) ACT 507(H) 87 - 138 sec [facility] Blood 10/17/2023 11:5 0 AM ACCOUNTING METHODS ANALYST 10/17/2023 11:50 AM ACCOUNTING METHODS ANALYST Jaqueline Valero MD LAB BLOOD ORDERABLES Final Result Performing Organization Address [facility]/ZIP Co de Phone Number [facility] [address] Department [place] [address] * (ABNORMAL) POC Activated Clotting Time, High Range (10/17/2023 11:22 AM ACCOUNTING METHODS ANALYST) ACT 582(H) 87 - 138 sec [facility] Blood 10/17/2023 11:2 2 AM ACCOUNTING METHODS ANALYST 10/17/2023 11:22 AM ACCOUNTING METHODS ANALYST Jaqueline Valero MD LAB BLOOD ORDERABLES Final Result [facility] [address] [place] [address] * (ABNORMAL) POC Blood Gas and Chemistries, Arterial - (10/17/2023 11:20 AM ACCOUNTING METHODS ANALYST) pH, Art POC 7.32(L) 7.35 - 7.45 [facility] pCO2, Art POC 41 35 - 45 mmHg [facility] pO2, Art POC 362(H) 80 - 108 mmHg [facility] Na, POC 130(L) 135 - 145 mmol/L [facility] K POC 4.5 3.3 - 4.9 mmol/L [facility] Comment: Interpretive Data This method is not able to assess for hemolysis, which may falsely increase potassium concentrations. If further testing is needed to evaluate this result, consider in-laboratory plasma potassium. Current Interpretive Data was last revised on 2022. Cl, POC 97 97 - 110 mmol/L [facility] Ionized Ca, POC 4.19(L) 4.50 - 5.10 mg/dL [facility] Glucose, POC 133 70 - 199 mg/dL [facility] Lactate, POC 2.1(H) 0.0 - 2.0 mmol/L [facility] O2Hb, Art POC 97.8(H) 90.0 - 95.0 % [facility] Carboxhgb fract 0.1 0.0 - 2.9 % [facility] Methemoglobin 0.5 0.0 - 1.9 % [facility] HHb, POC 1.6 0.0 - 5.0 % [facility] SO2 (oren) arterial 98(H) 90 - 95 % [facility] Total CO2, Art POC 22 22 - 32 mmol/L [facility] BE, art, POC -4.7(L) -2.0 - 2.0 mmol/L [facility] HCO3, Art POC 21 20 - 30 mmol/L [facility] Hct, POC 25.0(L) 38.9 - 50.3 % [facility] Total Hb, POC 8.2(L) 13.0 - 17.5 g/dL [facility] Blood 10/17/2023 11:2 0 AM ACCOUNTING METHODS ANALYST 10/17/2023 11:20 AM ACCOUNTING METHODS ANALYST Jovani Kat DO LAB POCT ORDERABLES - DE VICE Final Result Performing Organization Address [facility] Co de Phone Number [facility] [address] [facility] [place] [address] * (ABNORMAL) POC Activated Clotting Time, High Range (10/17/2023 11:05 AM ACCOUNTING METHODS ANALYST) ACT 533(H) 87 - 138 sec [facility] Blood 10/17/2023 11:0 5 AM ACCOUNTING METHODS ANALYST 10/17/2023 11:05 AM ACCOUNTING METHODS ANALYST Jaqueline Valero MD LAB BLOOD ORDERABLES Final Result Performing Organization Address [facility] Co de Phone Number [facility] [address] [facility] [place] [address] * (ABNORMAL) POC Activated Clotting Time, High Range (10/17/2023 10:53 AM ACCOUNTING METHODS ANALYST) ACT 494(H) 87 - 138 sec [facility] Blood 10/17/2023 10:5 3 AM ACCOUNTING METHODS ANALYST 10/17/2023 10:53 AM ACCOUNTING METHODS ANALYST Jaqueline Valero MD LAB BLOOD ORDERABLES Final Result Performing Organization Address [facility] Co de Phone Number [facility] [address] [facility] [place] [address] * (ABNORMAL) POC Activated Clotting Time, High Range (10/17/2023 10:38 AM ACCOUNTING METHODS ANALYST) ACT 583(H) 87 - 138 sec [facility] Blood 10/17/2023 10:3 8 AM ACCOUNTING METHODS ANALYST 10/17/2023 10:38 AM ACCOUNTING METHODS ANALYST us Jaqueline Valero MD LAB BLOOD ORDERABLES Final Result [facility] [address] Department [place] [address] * (ABNORMAL) POC Blood Gas and Chemistries, Arterial - (10/17/2023 10:38 AM ACCOUNTING METHODS ANALYST) pH, Art POC 7.34(L) 7.35 - 7.45 [facility] pCO2, Art POC 42 35 - 45 mmHg [facility] pO2, Art POC 357(H) 80 - 108 mmHg [facility] Na, POC 132(L) 135 - 145 mmol/L [facility] K POC 4.7 3.3 - 4.9 mmol/L [facility] Comment: Interpretive Data This method is not able to assess for hemolysis, which may falsely increase potassium concentrations. If further testing is needed to evaluate this result, consider in-laboratory plasma potassium. Current Interpretive Data was last revised on 2022. Cl, POC 96(L) 97 - 110 mmol/L [facility] Ionized Ca, POC 4.18(L) 4.50 - 5.10 mg/dL [facility] Glucose, POC 170 70 - 199 mg/dL [facility] Lactate, POC 1.8 0.0 - 2.0 mmol/L [facility] O2Hb, Art POC 97.7(H) 90.0 - 95.0 % [facility] Carboxhgb fract 0.0 0.0 - 2.9 % [facility] Methemoglobin 0.7 0.0 - 1.9 % [facility] HHb, POC 1.5 0.0 - 5.0 % [facility] SO2 (oren) arterial 98(H) 90 - 95 % [facility] Total CO2, Art POC 24 22 - 32 mmol/L [facility] BE, art, POC -2.9(L) -2.0 - 2.0 mmol/L [facility] HCO3, Art POC 23 20 - 30 mmol/L [facility] Hct, POC 24.0(L) 38.9 - 50.3 % [facility] Total Hb, POC 8.0(L) 13.0 - 17.5 g/dL [facility] Blood 10/17/2023 10:3 8 AM ACCOUNTING METHODS ANALYST 10/17/2023 10:38 AM ACCOUNTING METHODS ANALYST us Jovani Kat DO LAB POCT ORDERABLES - DE VICE Final Result Performing Organization Address City/[facility]/ZIP Co de Phone Number [facility] [address] [place] [address] * (ABNORMAL) POC Activated Clotting Time, High Range (10/17/2023 10:24 AM ACCOUNTING METHODS ANALYST) ACT 505(H) 87 - 138 sec [facility] Blood 10/17/2023 10:2 4 AM ACCOUNTING METHODS ANALYST 10/17/2023 10:24 AM ACCOUNTING METHODS ANALYST Jaqueline Valero MD LAB BLOOD ORDERABLES Final Result Performing Organization Address [facility]/ZIP Co de Phone Number [facility] [address] [place] [address] * (ABNORMAL) POC Blood Gas and Chemistries, Venous - (10/17/2023 10:21 AM ACCOUNTING METHODS ANALYST) pH, Juice POC 7.27(L) 7.32 - 7.45 [facility] pCO2, juice POC 53(H) 40 - 50 mmHg [facility] pO2, juice POC 43(H) 35 - 42 mmHg [facility] Na, POC 133(L) 135 - 145 mmol/L [facility] K POC 4.9 3.3 - 4.9 mmol/L [facility] Comment: Interpretive Data This method is not able to assess for hemolysis, which may falsely increase potassium concentrations. If further testing is needed to evaluate this result, consider in-laboratory plasma potassium. Current Interpretive Data was last revised on 2022. Cl, POC 95(L) 97 - 110 mmol/L [facility] Ionized Ca, POC 4.19(L) 4.50 - 5.10 mg/dL [facility] Glucose, POC 182 70 - 199 mg/dL [facility] Lactate, POC 1.5 0.0 - 2.0 mmol/L [facility] O2Hb, Juice POC 67.4(L) 90.0 - 95.0 % [facility] Carboxhgb fract 0.8 0.0 - 2.9 % [facility] Methemoglobin 0.7 0.0 - 1.9 % [facility] HHb, POC 31.0(H) 0.0 - 5.0 % [facility] O2 Sat, Juice POC (Oren) 68 68 - 77 % [facility] Total CO2, juice POC 26 22 - 32 mmol/L [facility] Base excess, juice POC -2.6 mmol/L [facility] HCO3, Juice POC 22 20 - 30 mmol/L [facility] Hct, POC 23.0(L) 38.9 - 50.3 % [facility] Total Hb, POC 7.6(L) 13.0 - 17.5 g/dL [facility] Blood 10/17/2023 10:2 1 AM ACCOUNTING METHODS ANALYST 10/17/2023 10:21 AM ACCOUNTING METHODS ANALYST us Jovani Kat DO LAB POCT ORDERABLES - DE VICE Final Result Performing Organization Address City/[facility]/ZIP Co de Phone Number [facility] [address] Department [place] [place] [address] * (ABNORMAL) POC Activated Clotting Time, High Range (10/17/2023 10:12 AM ACCOUNTING METHODS ANALYST) ACT 467(H) 87 - 138 sec [facility] Blood 10/17/2023 10:1 2 AM ACCOUNTING METHODS ANALYST 10/17/2023 10:12 AM ACCOUNTING METHODS ANALYST us Jaqueline Valero MD LAB BLOOD ORDERABLES Final Result [facility] [address] Department [place] [address] * (ABNORMAL) POC Blood Gas and Chemistries, Arterial - (10/17/2023 10:11 AM ACCOUNTING METHODS ANALYST) pH, Art POC 7.25(L) 7.35 - 7.45 [facility] pCO2, Art POC 40 35 - 45 mmHg [facility] pO2, Art POC 400(H) 80 - 108 mmHg [facility] Na, POC 129(L) 135 - 145 mmol/L [facility] K POC 4.6 3.3 - 4.9 mmol/L [facility] Comment: Interpretive Data This method is not able to assess for hemolysis, which may falsely increase potassium concentrations. If further testing is needed to evaluate this result, consider in-laboratory plasma potassium. Current Interpretive Data was last revised on 2022. Cl, POC 96(L) 97 - 110 mmol/L [facility] Ionized Ca, POC 4.08(L) 4.50 - 5.10 mg/dL [facility] Glucose, POC 182 70 - 199 mg/dL [facility] Lactate, POC 1.3 0.0 - 2.0 mmol/L [facility] O2Hb, Art POC 98.1(H) 90.0 - 95.0 % [facility] Carboxhgb fract 0.3 0.0 - 2.9 % [facility] Methemoglobin 0.6 0.0 - 1.9 % [facility] HHb, POC 0.9 0.0 - 5.0 % [facility] SO2 (oren) arterial 99(H) 90 - 95 % [facility] Total CO2, Art POC 19(L) 22 - 32 mmol/L [facility] BE, art, POC -9.0(L) -2.0 - 2.0 mmol/L [facility] HCO3, Art POC 18(L) 20 - 30 mmol/L [facility] Hct, POC 22.0(L) 38.9 - 50.3 % [facility] Total Hb, POC 7.4(L) 13.0 - 17.5 g/dL [facility] Blood 10/17/2023 10:1 1 AM ACCOUNTING METHODS ANALYST 10/17/2023 10:11 AM ACCOUNTING METHODS ANALYST us Jovani Kat DO LAB POCT ORDERABLES - DE VICE Final Result [facility] [address] Department [place] [address] * (ABNORMAL) POC Blood Gas and Chemistries, Arterial - (10/17/2023 9:47 AM ACCOUNTING METHODS ANALYST) pH, Art POC 7.30(L) 7.35 - 7.45 [facility] pCO2, Art POC 40 35 - 45 mmHg [facility] pO2, Art POC 65(L) 80 - 108 mmHg [facility] Na, POC 130(L) 135 - 145 mmol/L [facility] K POC 4.3 3.3 - 4.9 mmol/L [facility] Comment: Interpretive Data This method is not able to assess for hemolysis, which may falsely increase potassium concentrations. If further testing is needed to evaluate this result, consider in-laboratory plasma potassium. Current Interpretive Data was last revised on 2022. Cl, POC 97 97 - 110 mmol/L [facility] Ionized Ca, POC 4.39(L) 4.50 - 5.10 mg/dL [facility] Glucose, POC 202(H) 70 - 199 mg/dL [facility] Lactate, POC 1.1 0.0 - 2.0 mmol/L [facility] O2Hb, Art POC 90.8 90.0 - 95.0 % [facility] Carboxhgb fract 0.7 0.0 - 2.9 % [facility] Methemoglobin 0.0 0.0 - 1.9 % [facility] HHb, POC 8.5(H) 0.0 - 5.0 % [facility] SO2 (oren) arterial 91 90 - 95 % [facility] Total CO2, Art POC 21(L) 22 - 32 mmol/L [facility] BE, art, POC -6.2(L) -2.0 - 2.0 mmol/L [facility] HCO3, Art POC 20 20 - 30 mmol/L [facility] Hct, POC 26.0(L) 38.9 - 50.3 % [facility] Total Hb, POC 8.6(L) 13.0 - 17.5 g/dL [facility] Blood 10/17/2023 9:47 AM ACCOUNTING METHODS ANALYST 10/17/2023 9:47 AM ACCOUNTING METHODS ANALYST us Jovani Kat DO LAB POCT ORDERABLES - DE VICE Final Result Performing Organization Address [facility] Co de Phone Number [facility] [address] [place] [address] * (ABNORMAL) POC Activated Clotting Time, High Range (10/17/2023 9:44 AM ACCOUNTING METHODS ANALYST) ACT 428(H) 87 - 138 sec [facility] Blood 10/17/2023 9:44 AM ACCOUNTING METHODS ANALYST 10/17/2023 9:44 AM ACCOUNTING METHODS ANALYST us Jaqueline Valero MD LAB BLOOD ORDERABLES Final Result Performing Organization Address [facility] Co de Phone Number [facility] [address] [place] [address] * Prepare cryoprecipitate (pooled units): 2 Units (10/17/2023 9:12 AM ACCOUNTING METHODS ANALYST) [facility] Product code [id number] Unit Number [id number] [facility] Product Blood Type OPOS [facility] Dispense Status PRESUMED TRANSFUSED [facility] Product code [id number] [facility] Unit Number [id number] I [facility] Product Blood Type OPOS [facility] Dispense Status PRESUMED TRANSFUSED [facility] Blood (Blood, Venous) 10/17/2023 9:12 AM ACCOUNTING METHODS ANALYST Narrative [facility] - 10/17/2023 10:15 PM ACCOUNTING METHODS ANALYST Other indication->CTOR Cryo # of [id number] Reasons:-Other (Specify)} us Ayden Alan MD BLOOD BANK PRODUCT ORDERABLES Final Result Performing Organization Address [facility] Co de Phone Number [facility] [address] Department [place] [place] [address] * Prepare plasma: 2 Units (10/17/2023 9:12 AM ACCOUNTING METHODS ANALYST) Product code [id number] [facility] Unit Number [id number] [facility] Product Blood Type APOS [facility] Dispense Status PRESUMED TRANSFUSED [facility] Product code [id number] Unit Number [id number] [facility] Product Blood Type ANEG [facility] Dispense Status PRESUMED TRANSFUSED [facility] Blood (Blood, Venous) 10/17/2023 9:12 AM ACCOUNTING METHODS ANALYST Narrative [facility] - 10/17/2023 10:15 PM ACCOUNTING METHODS ANALYST Other indication->CTOR Date required:-20231017 FFP # of Units:-2-Units Reasons:-Other (Specify)} Ayden Alan MD BLOOD BANK PRODUCT ORDERABLES Final Result Performing Organization Address [facility] de Phone Number [facility] [address] [facility] [place] [address] * Prepare platelets: 1 Units (10/17/2023 9:12 AM ACCOUNTING METHODS ANALYST) Product code [id number] Unit Number [id number] [facility] Product Blood Type BPOS [facility] Dispense Status PRESUMED TRANSFUSED [facility] Blood (Blood, Venous) 10/17/2023 9:12 AM ACCOUNTING METHODS ANALYST Narrative [facility] - 10/17/2023 10:15 PM ACCOUNTING METHODS ANALYST Other indication->CTOR Are special requirements needed? (all products are leukoreduced)->No Date required:-20231017 PLT # of Units:-1-Units Reasons:-Other (Specify)} Ayden Alan MD BLOOD BANK PRODUCT ORDERABLES Final Result Performing Organization Address [facility] de Phone Number [facility] [address] [place] [address] * POC Activated Clotting Time, High Range (10/17/2023 8:19 AM ACCOUNTING METHODS ANALYST) [facility] ACT 97 87 - 138 sec [facility] Blood 10/17/2023 8:19 AM ACCOUNTING METHODS ANALYST 10/17/2023 8:19 AM ACCOUNTING METHODS ANALYST Jaqueline Valero MD LAB BLOOD ORDERABLES Final Result Performing Organization Address [facility] de Phone Number [facility] [address] [place] [address] * (ABNORMAL) POCT glucose (10/17/2023 7:47 AM ACCOUNTING METHODS ANALYST) [facility] Glucose, POC 279(H) 70 - 140 mg/dL [facility] Comment: For Glucose values <35 mg/dl when Hematocrit is >60 mg/dl,the test may not accurately detect significant hypoglycemia,and testing in the Laboratory should be considered if clinically indicated. Blood 10/17/2023 7:47 AM ACCOUNTING METHODS ANALYST 10/17/2023 7:47 AM ACCOUNTING METHODS ANALYST Result [facility] Jovani Kat DO LAB POCT ORDERABLES - DE VICE Final Result Performing Organization Address [facility] de Phone Number [facility] [address] [place] [address] * (ABNORMAL) POCT glucose (10/17/2023 5:50 AM ACCOUNTING METHODS ANALYST) [facility] Glucose, POC 307(H) 70 - 140 mg/dL [facility] Comment: For Glucose values <35 mg/dl when Hematocrit is >60 mg/dl,the test may not accurately detect significant hypoglycemia,and testing in the Laboratory should be considered if clinically indicated. Blood 10/17/2023 5:50 AM ACCOUNTING METHODS ANALYST 10/17/2023 5:50 AM ACCOUNTING METHODS ANALYST Frank Cody MD LAB POCT ORDERABLES - DEVICE Fin al Result Performing Organization Address [facility]/State/ZIP Co de Phone Number [facility] [address] [place] [address] * US Carotids (10/17/2023 5:10 AM ACCOUNTING METHODS ANALYST) Anatomical Region Laterality Modality Vascular Bilateral Ultrasound 10/17/2023 1:01 PM ACCOUNTING METHODS ANALYST Impressions 10/17/2023 1:01 PM ACCOUNTING METHODS ANALYST 1) ??Plaquing of the right internal carotid [...] by: MD Luis Snyder 10/17/2023 1:01 PM ACCOUNTING METHODS ANALYST DATE:10/17/2023 4:30 AM EXAM: Duplex imaging of [...] * (ABNORMAL) POCT glucose (10/17/2023 2:29 AM ACCOUNTING METHODS ANALYST) Glucose, POC 288(H) 70 - 140 mg/dL [facility] Comment: For Glucose values <35 mg/dl when Hematocrit is >60 mg/dl,the test may not accurately detect significant hypoglycemia,and testing in the Laboratory should be considered if clinically indicated. Blood 10/17/2023 2:29 AM ACCOUNTING METHODS ANALYST 10/17/2023 2:29 AM ACCOUNTING METHODS ANALYST Frank Cody MD LAB POCT ORDERABLES - DEVICE Fin al Result Performing Organization Address [facility] Co de Phone Number [facility] [address] Department [place] [address] * (ABNORMAL) POCT glucose (10/17/2023 12:51 AM ACCOUNTING METHODS ANALYST) Glucose, POC 242(H) 70 - 140 mg/dL [facility] Comment: For Glucose values <35 mg/dl when Hematocrit is >60 mg/dl,the test may not accurately detect significant hypoglycemia,and testing in the Laboratory should be considered if clinically indicated. Blood 10/17/2023 12:5 1 AM ACCOUNTING METHODS ANALYST 10/17/2023 12:51 AM ACCOUNTING METHODS ANALYST Frank Cody MD LAB POCT ORDERABLES - DEVICE Fin al Result Performing Organization Address [facility] Co de Phone Number [facility] [address] Department [place] [place] [address] * (ABNORMAL) Differential, auto (10/17/2023 12:29 AM ACCOUNTING METHODS ANALYST) Neutrophil abs 6.4 1.5 - 6.5 K/cumm [facility] Imm gran abs 0.2(H) 0.0 - 0.1 K/cumm [facility] Lymphocyte abs 1.6 0.8 - 3.3 K/cumm [facility] Monocyte abs 1.1(H) 0.2 - 0.8 K/cumm [facility] Eosinophil abs 0.3 0.0 - 0.5 K/cumm [facility] Basophil abs 0.0 0.0 - 0.1 K/cumm [facility] Neutrophil pct 66.0 % [facility] Comment: Interpretive Data Percent cell count reference ranges are not reported, since discordance with absolute values may lead to misinterpretation of CBC data. Current Interpretive Data was last revised on 2017. Imm gran pct 2.1 % [facility] Comment: Interpretive Data Percent cell count reference ranges are not reported, since discordance with absolute values may lead to misinterpretation of CBC data. Current Interpretive Data was last revised on 2017. Lymphocyte pct 16.8 % [facility] Comment: Interpretive Data Percent cell count reference ranges are not reported, since discordance with absolute values may lead to misinterpretation of CBC data. Current Interpretive Data was last revised on 2017. Monocyte pct 11.6 % [facility] Comment: Interpretive Data Percent cell count reference ranges are not reported, since discordance with absolute values may lead to misinterpretation of CBC data. Current Interpretive Data was last revised on 2017. Eosinophil pct 3.1 % [facility] Comment: Interpretive Data Percent cell count reference ranges are not reported, since discordance with absolute values may lead to misinterpretation of CBC data. Current Interpretive Data was last revised on 2017. Basophil pct 0.4 % [facility] Comment: Interpretive Data Percent cell count reference ranges are not reported, since discordance with absolute values may lead to misinterpretation of CBC data. Current Interpretive Data was last revised on 2017. Blood 10/17/2023 12:2 9 AM ACCOUNTING METHODS ANALYST 10/17/2023 12:42 AM ACCOUNTING METHODS ANALYST us Vinay Pratt DO LAB BLOOD ORDERABLES F inal Result [facility] [address] Department [place] [address] * (ABNORMAL) aPTT (10/17/2023 12:29 AM ACCOUNTING METHODS ANALYST) Pathologist [facility] aPTT 92(H) 28 - 38 sec [facility] Comment: Interpretive Data Heparin therapeutic range: 66.0 - 100.0 seconds. Range based on correlation with therapeutic heparin activity range of 0.3 - 0.7 Units/mL. Current interpretive data was last revised on 2023. Blood 10/17/2023 12:2 9 AM ACCOUNTING METHODS ANALYST 10/17/2023 12:43 AM ACCOUNTING METHODS ANALYST us Frank Cody MD LAB BLOOD ORDERABLES Final Resul t Performing Organization Address [facility] Co de Phone Number [facility] [address] Department [place] [address] * (ABNORMAL) CBC with auto differential (10/17/2023 12:29 AM ACCOUNTING METHODS ANALYST) [facility] WBC 9.7 3.8 - 9.9 K/cumm [facility] Hgb 9.0(L) 13.0 - 17.5 g/dL [facility] Hct 27.4(L) 38.9 - 50.3 % [facility] Plt 289 150 - 400 K/cumm [facility] MPV 10.7 9.1 - 12.3 fL [facility] RBC 3.04(L) 4.30 - 5.80 M/cumm [facility] MCV 90.1 81.3 - 96.4 fL [facility] MCH 29.6 27.1 - 33.3 pg [facility] MCHC 32.8 32.3 - 35.7 g/dL [facility] RDW CV 14.7 11.1 - 14.9 % [facility] RDW SD 46.4 35.7 - 48.1 fL [facility] NRBC abs 0.03(H) 0.00 - 0.01 K/cumm [facility] Blood 10/17/2023 12:2 9 AM ACCOUNTING METHODS ANALYST 10/17/2023 12:42 AM ACCOUNTING METHODS ANALYST Vinay Pratt DO LAB BLOOD ORDERABLES F inal Result Performing Organization Address City/[facility] Co de Phone Number [facility] [address] [facility] [place] [address] * Type and screen (10/16/2023 7:51 PM ACCOUNTING METHODS ANALYST) Maribel, indirect Negative ABO Rh A Positive [facility] Blood 10/16/2023 7:51 PM ACCOUNTING METHODS ANALYST 10/16/2023 8:09 PM ACCOUNTING METHODS ANALYST us Frank Cody MD LAB BLOOD BANK TEST ORDERABLES F inal Result Performing Organization Address [facility] Co de Phone Number [facility] [address] [facility] [employer] [place], [place] [id number] * POCT glucose (10/16/2023 7:49 PM ACCOUNTING METHODS ANALYST) Glucose, POC 114 70 - 140 mg/dL [facility] Comment: For Glucose values <35 mg/dl when Hematocrit is >60 mg/dl,the test may not accurately detect significant hypoglycemia,and testing in the Laboratory should be considered if clinically indicated. Blood 10/16/2023 7:49 PM ACCOUNTING METHODS ANALYST 10/16/2023 7:49 PM ACCOUNTING METHODS ANALYST us Frank Cody MD LAB POCT ORDERABLES - DEVICE Fin al Result Performing Organization Address [facility] Co de Phone Number [facility] [address] [facility] [place] [address] * POCT glucose (10/16/2023 5:35 PM ACCOUNTING METHODS ANALYST) Glucose, POC 76 70 - 140 mg/dL [facility] Comment: For Glucose values <35 mg/dl when Hematocrit is >60 mg/dl,the test may not accurately detect significant hypoglycemia,and testing in the Laboratory should be considered if clinically indicated. Blood 10/16/2023 5:35 PM ACCOUNTING METHODS ANALYST 10/16/2023 5:35 PM ACCOUNTING METHODS ANALYST us Frank Cody MD LAB POCT ORDERABLES - DEVICE Fin al Result [facility] [address] Department [place] [address] * TRANSTHORACIC ECHO (TTE) COMPLETE W DOPPLER/CF W CONTRAST (10/16/2023 4:47 PM ACCOUNTING METHODS ANALYST) Anatomical Region Laterality Modality Ultrasound 10/16/2023 11:3 9 AM ACCOUNTING METHODS ANALYST Narrative 10/16/2023 5:02 PM ACCOUNTING METHODS ANALYST [facility] [address] [place] [address] ECHOCARDIOGRAM Patient Name: JUVENAL GARVIN C : 1970 Study Date: 10/16/2023 11:39:54 AM Gender: M Tech: Location: [address] Provider: GUERLINE RODRIGUEZ ?Height(Cm): 178 BSA: 2.5 Weight(Kg): 126.1 BP: 125/75 ?Order Provider: GUERLINE RODRIGUEZ - PROCEDURES: Echocardiographic Report: Transthoracic Echocardiogram with 2D, M-Mode, Spectral and Color Flow Doppler examination and administration of intravenous contrast. INDICATIONS: Coronary artery disease, chippewa-cree vessel. Measurements: 2D/M Mode ? Doppler Measurement [...] regurgitation. Electronically Signed By: Dimitrios Ames MD, [facility] 2023-10-16 17:01:58 ACCOUNTING METHODS ANALYST Procedure Note Dimitrios Ames MD - 10/16/2023 [facility] [address] [place] [address] ECHOCARDIOGRAM Patient Name: JUVENAL GARVIN C : 1970 Study Date: 10/16/2023 11:39:54 AM Gender: M Tech: Location: [address] Ref Provider: GUERLINE RODRIGUEZ Height(Cm): 178 BSA: 2.5 Weight(Kg): 126.1 BP: 125/75 Order Provider: GUERLINE RODRIGUEZ - PROCEDURES: Echocardiographic Report: Transthoracic Echocardiogram with 2D, M-Mode, Spectral and Color FlowDoppler examination and administration of intravenous contrast. INDICATIONS: Coronary artery disease, chip[place]wa-cree vessel. Measurements: 2D/M ModeDoppler Measurement Value Normal [...] tricuspidregurgitation. Electronically Signed By: Dimitrios Ames MD, [facility] 2023-10-16 17:01:58 ACCOUNTING METHODS ANALYST us Guerline [facility] ECHO PROCEDURES Final Res ult * (ABNORMAL) aPTT (10/16/2023 3:50 PM ACCOUNTING METHODS ANALYST) aPTT 73(H) 28 - 38 sec [facility] Comment: Interpretive Data Heparin therapeutic range: 66.0 - 100.0 seconds. Range based on correlation with therapeutic heparin activity range of 0.3 - 0.7 Units/mL. Current interpretive data was last revised on 2023. Blood 10/16/2023 3:50 PM ACCOUNTING METHODS ANALYST 10/16/2023 3:50 PM ACCOUNTING METHODS ANALYST us Frank Cody MD LAB BLOOD ORDERABLES Final Resul t [facility] [address] [place] [address] * (ABNORMAL) Lipid panel (10/16/2023 3:44 PM ACCOUNTING METHODS ANALYST) Cholesterol 89 30 - 199 mg/dL [facility] Comment: Interpretive Data Ages < [...] revised on 2018. Triglycerides 106 <=149 mg/dL [facility] Comment: Interpretive Data Ages < [...] revised on 2018. HDL 34(L) >=40 mg/dL [facility] Comment: Interpretive Data Ages < [...] on 2018. LDL, calculated 34 <=129 mg/dL [facility] Comment: Interpretive Data Ages < [...] revised on 2018. Non-HDL Cholesterol 55 mg/dL [facility] Comment: Interpretive Data Ages < [...] last revised on 2018. Chol/HDL ratio 3 [facility] Blood 10/16/2023 3:44 PM ACCOUNTING METHODS ANALYST 10/16/2023 3:53 PM ACCOUNTING METHODS ANALYST Jaqueline Valero MD LAB BLOOD ORDERABLES Final Result [facility] [address] Department [place] [address] * (ABNORMAL) Hemoglobin A1c (10/16/2023 3:27 PM ACCOUNTING METHODS ANALYST) Hgb A1C 8.1(H) 4.0 - 5.6 % [facility] Estimated Average Glucose 186 mg/dL [facility] Comment: The ADA recommends reporting an estimated Average Glucose (eAG) with all Hemoglobin A1c results using the equation derived from a study of 507 normal and diabetic adults. ??Minority populations were underrepresented and children were not included. ?? (Diabetes Care 31:4597-5412, 2008). ??The eAG is not equivalent to a fasting glucose. Blood 10/16/2023 3:27 PM ACCOUNTING METHODS ANALYST 10/16/2023 3:27 PM ACCOUNTING METHODS ANALYST Jaqueline Valero MD LAB BLOOD ORDERABLES Final Result [facility] [address] [place] [address] * XR Chest PA Lateral 2 View (10/16/2023 3:12 PM ACCOUNTING METHODS ANALYST) Anatomical Region Laterality Modality Body, Chest N/A Computed Radiogr aphy 10/16/2023 3:15 PM ACCOUNTING METHODS ANALYST Impressions 10/16/2023 3:15 PM ACCOUNTING METHODS ANALYST Small bilateral pleural effusions with mild bibasilar atelectasis. Small volume fluid tracks into the right minor fissure. ??Mild pulmonary edema. ??No pneumothorax. ??Heart size and mediastinal contours are unchanged. Electronically signed by: Salina Garnica M.D. Narrative 10/16/2023 3:15 PM ACCOUNTING METHODS ANALYST EXAMINATION: XR CHEST PA LATERAL 2 VIEWS [...] * ECG 12 lead (10/16/2023 2:17 PM ACCOUNTING METHODS ANALYST) 10/16/2023 2:17 PM ACCOUNTING METHODS ANALYST Narrative [facility] - 10/16/2023 9:14 PM ACCOUNTING METHODS ANALYST Vent Rate: 61 bpm RR Interval: 981 msec VA Interval: 235 msec QRS Duration: 150 msec QT Interval: 447 msec QTC Interval: 449 msec P-R-T [place]: 70 - -11 - 134 degrees IMPRESSION: SINUS RHYTHM WITH FIRST DEGREE AV BLOCK LEFT BUNDLE BRANCH BLOCK ABNORMAL ECG Electronically Signed By: Payam White MD us Jaqueline Valero MD ECG ORDERABLES Final Resu lt Performing Organization Address City/[facility]/ZIP Co de Phone Number [facility] * Prepare RBC: 3 Units (10/16/2023 2:04 PM ACCOUNTING METHODS ANALYST) Pathologist [facility] Product code [id number] [facility] Unit Number [id number] [facility] Product Blood Type APOS [facility] Dispense Status PRESUMED TRANSFUSED [facility] Product code [id number] Unit Number [id number] * [facility] Product Blood Type APOS [facility] Dispense Status PRESUMED TRANSFUSED [facility] Product code [id number] [facility] Unit Number [id number] [facility] Product Blood Type APOS [facility] Dispense Status RETURNED [facility] Blood 10/16/2023 2:04 PM ACCOUNTING METHODS ANALYST Narrative [facility] - 10/19/2023 7:08 AM ACCOUNTING METHODS ANALYST Specify Procedure:->cabg/aortic valve replacement Are special requirements needed? (All products are leukoreduced and CMV- safe)- >No Date required:-[id number] LRRBC # of [id number] Reasons:-Hold for procedure (specify procedure)} us Jaqueline Valero MD BLOOD BANK PRODUCT ORDERAB LES Final Result Performing Organization Address [facility] Co de Phone Number [facility] [address] [place] [address] * POCT glucose (10/16/2023 12:22 PM ACCOUNTING METHODS ANALYST) Pathologist [facility] Glucose, POC 74 70 - 140 mg/dL [facility] Comment: For Glucose values <35 mg/dl when Hematocrit is >60 mg/dl,the test may not accurately detect significant hypoglycemia,and testing in the Laboratory should be considered if clinically indicated. Blood 10/16/2023 12:2 2 PM ACCOUNTING METHODS ANALYST 10/16/2023 12:22 PM ACCOUNTING METHODS ANALYST us Frank Cody MD LAB POCT ORDERABLES - DEVICE Fin al Result Performing Organization Address [facility] de Phone Number [facility] [address] [place] [address] * (ABNORMAL) POCT glucose (10/16/2023 8:11 AM ACCOUNTING METHODS ANALYST) Glucose, POC 266(H) 70 - 140 mg/dL [facility] Comment: For Glucose values <35 mg/dl when Hematocrit is >60 mg/dl,the test may not accurately detect significant hypoglycemia,and testing in the Laboratory should be considered if clinically indicated. Blood 10/16/2023 8:11 AM ACCOUNTING METHODS ANALYST 10/16/2023 8:11 AM ACCOUNTING METHODS ANALYST us Frank Cody MD LAB POCT ORDERABLES - DEVICE Fin al Result Performing Organization Address [facility] de Phone Number [facility] [address] [facility] [place] [address] * (ABNORMAL) POCT glucose (10/16/2023 4:48 AM ACCOUNTING METHODS ANALYST) Glucose, POC 329(H) 70 - 140 mg/dL [facility] Comment: For Glucose values <35 mg/dl when Hematocrit is >60 mg/dl,the test may not accurately detect significant hypoglycemia,and testing in the Laboratory should be considered if clinically indicated. Blood 10/16/2023 4:48 AM ACCOUNTING METHODS ANALYST 10/16/2023 4:48 AM ACCOUNTING METHODS ANALYST us Frank Cody MD LAB POCT ORDERABLES - DEVICE Fin al Result Performing Organization Address [facility] de Phone Number [facility] [address] [facility] [place] [address] * (ABNORMAL) POCT glucose (10/16/2023 12:37 AM ACCOUNTING METHODS ANALYST) Glucose, POC 158(H) 70 - 140 mg/dL [facility] Comment: For Glucose values <35 mg/dl when Hematocrit is >60 mg/dl,the test may not accurately detect significant hypoglycemia,and testing in the Laboratory should be considered if clinically indicated. Blood 10/16/2023 12:3 7 AM ACCOUNTING METHODS ANALYST 10/16/2023 12:37 AM ACCOUNTING METHODS ANALYST Frank Cody MD LAB POCT ORDERABLES - DEVICE Fin al Result [facility] [address] [place] [address] * (ABNORMAL) Differential, auto (10/16/2023 12:31 AM ACCOUNTING METHODS ANALYST) Neutrophil abs 4.5 1.5 - 6.5 K/cumm [facility] Imm gran abs 0.2(H) 0.0 - 0.1 K/cumm [facility] Lymphocyte abs 1.8 0.8 - 3.3 K/cumm [facility] Monocyte abs 1.0(H) 0.2 - 0.8 K/cumm [facility] Eosinophil abs 0.2 0.0 - 0.5 K/cumm [facility] Basophil abs 0.0 0.0 - 0.1 K/cumm [facility] Neutrophil pct 58.6 % [facility] Comment: Interpretive Data Percent cell count reference ranges are not reported, since discordance with absolute values may lead to misinterpretation of CBC data. Current Interpretive Data was last revised on 2017. Imm gran pct 2.1 % [facility] Comment: Interpretive Data Percent cell count reference ranges are not reported, since discordance with absolute values may lead to misinterpretation of CBC data. Current Interpretive Data was last revised on 2017. Lymphocyte pct 23.1 % [facility] Comment: Interpretive Data Percent cell count reference ranges are not reported, since discordance with absolute values may lead to misinterpretation of CBC data. Current Interpretive Data was last revised on 2017. Monocyte pct 13.2 % [facility] Comment: Interpretive Data Percent cell count reference ranges are not reported, since discordance with absolute values may lead to misinterpretation of CBC data. Current Interpretive Data was last revised on 2017. Eosinophil pct 2.5 % [facility] Comment: Interpretive Data Percent cell count reference ranges are not reported, since discordance with absolute values may lead to misinterpretation of CBC data. Current Interpretive Data was last revised on 2017. Basophil pct 0.5 % [facility] Comment: Interpretive Data Percent cell count reference ranges are not reported, since discordance with absolute values may lead to misinterpretation of CBC data. Current Interpretive Data was last revised on 2017. Blood 10/16/2023 12:3 1 AM ACCOUNTING METHODS ANALYST 10/16/2023 12:36 AM ACCOUNTING METHODS ANALYST Vinay Pratt DO LAB BLOOD ORDERABLES F inal Result Performing Organization Address [facility] Co de Phone Number [facility] [address] [place] [place] [address] * (ABNORMAL) aPTT (10/16/2023 12:31 AM ACCOUNTING METHODS ANALYST) Pathologist [facility] aPTT 80(H) 28 - 38 sec [facility] Comment: Interpretive Data Heparin therapeutic range: 66.0 - 100.0 seconds. Range based on correlation with therapeutic heparin activity range of 0.3 - 0.7 Units/mL. Current interpretive data was last revised on 2023. Blood 10/16/2023 12:3 1 AM ACCOUNTING METHODS ANALYST 10/16/2023 12:36 AM ACCOUNTING METHODS ANALYST Frank Cody MD LAB BLOOD ORDERABLES Final Resul t Performing Organization Address [facility] Co de Phone Number [facility] [address] Department of [employer] [place], [place] [phone] * (ABNORMAL) CBC with auto differential (10/16/2023 12:31 AM ACCOUNTING METHODS ANALYST) WBC 7.7 3.8 - 9.9 K/cumm [facility] Hgb 9.4(L) 13.0 - 17.5 g/dL [facility] Hct 29.7(L) 38.9 - 50.3 % [facility] Plt 330 150 - 400 K/cumm [facility] MPV 10.9 9.1 - 12.3 fL [facility] RBC 3.24(L) 4.30 - 5.80 M/cumm [facility] MCV 91.7 81.3 - 96.4 fL [facility] MCH 29.0 27.1 - 33.3 pg [facility] MCHC 31.6(L) 32.3 - 35.7 g/dL [facility] RDW CV 14.6 11.1 - 14.9 % [facility] RDW SD 47.2 35.7 - 48.1 fL [facility] NRBC abs 0.03(H) 0.00 - 0.01 K/cumm [facility] Blood 10/16/2023 12:3 1 AM ACCOUNTING METHODS ANALYST 10/16/2023 12:36 AM ACCOUNTING METHODS ANALYST Vinay Pratt DO LAB BLOOD ORDERABLES F inal Result Performing Organization Address [facility] Co de Phone Number [facility] [address] Department of [employer] [place], [place] [phone] * Check Sample (10/16/2023 12:27 AM ACCOUNTING METHODS ANALYST) Pathologist [facility] ABO Rh A Positive HCLL OTHER 10/16/2023 12:2 7 AM ACCOUNTING METHODS ANALYST 10/16/2023 2:18 PM ACCOUNTING METHODS ANALYST Frank Cody MD LAB BLOOD ORDERABLES Final Resul t Performing Organization Address [facility] de Phone Number [facility] [address] Department [place] [place] [address] * POCT glucose (10/15/2023 11:20 PM ACCOUNTING METHODS ANALYST) Glucose, POC 105 70 - 140 mg/dL [facility] Comment: For Glucose values <35 mg/dl when Hematocrit is >60 mg/dl,the test may not accurately detect significant hypoglycemia,and testing in the Laboratory should be considered if clinically indicated. Blood 10/15/2023 11:2 0 PM ACCOUNTING METHODS ANALYST 10/15/2023 11:20 PM ACCOUNTING METHODS ANALYST Frank Cody MD LAB POCT ORDERABLES - DEVICE Fin al Result Performing Organization Address [facility] de Phone Number [facility] [address] Department of [employer] [place], [place] [phone] * POCT glucose (10/15/2023 11:01 PM ACCOUNTING METHODS ANALYST) Glucose, POC 93 70 - 140 mg/dL [facility] Comment: For Glucose values <35 mg/dl when Hematocrit is >60 mg/dl,the test may not accurately detect significant hypoglycemia,and testing in the Laboratory should be considered if clinically indicated. Glucose comment 1 Follow Protocol [facility] Blood 10/15/2023 11:0 1 PM ACCOUNTING METHODS ANALYST 10/15/2023 11:01 PM ACCOUNTING METHODS ANALYST Frank Cody MD LAB POCT ORDERABLES - DEVICE Fin al Result Performing Organization Address [facility] de Phone Number [facility] [address] [facility] [place] [address] * POCT glucose (10/15/2023 10:45 PM ACCOUNTING METHODS ANALYST) Glucose, POC 84 70 - 140 mg/dL [facility] Comment: For Glucose values <35 mg/dl when Hematocrit is >60 mg/dl,the test may not accurately detect significant hypoglycemia,and testing in the Laboratory should be considered if clinically indicated. Glucose comment 1 Follow Protocol [facility] Blood 10/15/2023 10:4 5 PM ACCOUNTING METHODS ANALYST 10/15/2023 10:45 PM ACCOUNTING METHODS ANALYST Frank Cody MD LAB POCT ORDERABLES - DEVICE Fin al Result Performing Organization Address [facility] de Phone Number [facility] [address] Department [employer] [place], [place] [phone] * (ABNORMAL) POCT glucose (10/15/2023 10:26 PM ACCOUNTING METHODS ANALYST) Glucose, POC 69(L) 70 - 140 mg/dL [facility] Comment: For Glucose values <35 mg/dl when Hematocrit is >60 mg/dl,the test may not accurately detect significant hypoglycemia,and testing in the Laboratory should be considered if clinically indicated. Blood 10/15/2023 10:2 6 PM ACCOUNTING METHODS ANALYST 10/15/2023 10:26 PM ACCOUNTING METHODS ANALYST us Frank Cody MD LAB POCT ORDERABLES - DEVICE Fin al Result Performing Organization Address [facility] de Phone Number [facility] [address] [place] [address] * POCT glucose (10/15/2023 8:12 PM ACCOUNTING METHODS ANALYST) Glucose, POC 73 70 - 140 mg/dL [facility] Comment: For Glucose values <35 mg/dl when Hematocrit is >60 mg/dl,the test may not accurately detect significant hypoglycemia,and testing in the Laboratory should be considered if clinically indicated. Blood 10/15/2023 8:12 PM ACCOUNTING METHODS ANALYST 10/15/2023 8:12 PM ACCOUNTING METHODS ANALYST Result [facility] us Frank Cody MD LAB POCT ORDERABLES - DEVICE Fin al Result Performing Organization Address [facility] de Phone Number [facility] [address] [place] [address] * POCT glucose (10/15/2023 5:10 PM ACCOUNTING METHODS ANALYST) Glucose, POC 72 70 - 140 mg/dL [facility] Comment: For Glucose values <35 mg/dl when Hematocrit is >60 mg/dl,the test may not accurately detect significant hypoglycemia,and testing in the Laboratory should be considered if clinically indicated. Blood 10/15/2023 5:10 PM ACCOUNTING METHODS ANALYST 10/15/2023 5:10 PM ACCOUNTING METHODS ANALYST us Frank Cody MD LAB POCT ORDERABLES - DEVICE Fin al Result Performing Organization Address [facility] Co de Phone Number [facility] [address] [facility] [place] [address] * (ABNORMAL) POCT glucose (10/15/2023 12:13 PM ACCOUNTING METHODS ANALYST) Glucose, POC 155(H) 70 - 140 mg/dL [facility] Comment: For Glucose values <35 mg/dl when Hematocrit is >60 mg/dl,the test may not accurately detect significant hypoglycemia,and testing in the Laboratory should be considered if clinically indicated. Blood 10/15/2023 12:1 3 PM ACCOUNTING METHODS ANALYST 10/15/2023 12:13 PM ACCOUNTING METHODS ANALYST us Frank Cody MD LAB POCT ORDERABLES - DEVICE Fin al Result Performing Organization Address [facility] Co de Phone Number [facility] [address] [facility] [place] [address] * (ABNORMAL) aPTT (10/15/2023 11:25 AM ACCOUNTING METHODS ANALYST) aPTT 59(H) 28 - 38 sec [facility] Comment: Interpretive Data Heparin therapeutic range: 66.0 - 100.0 seconds. Range based on correlation with therapeutic heparin activity range of 0.3 - 0.7 Units/mL. Current interpretive data was last revised on 2023. Blood 10/15/2023 11:2 5 AM ACCOUNTING METHODS ANALYST 10/15/2023 11:31 AM ACCOUNTING METHODS ANALYST us Frank Cody MD LAB BLOOD ORDERABLES Final Resul t Performing Organization Address [facility]/ZIP Co de Phone Number [facility] [address] [facility] [place] [address] * CT Chest WO Contrast (10/15/2023 11:00 AM ACCOUNTING METHODS ANALYST) Anatomical Region Laterality Modality Body N/A Computed Tomogra phy 10/15/2023 11:5 8 AM ACCOUNTING METHODS ANALYST Impressions 10/15/2023 11:58 AM ACCOUNTING METHODS ANALYST 1. ??Small bilateral pleural effusions with mild bibasilar atelectasis. 2. ??Mildly enlarged likely reactive mediastinal lymph nodes. Attention on follow-up is recommended. Electronically signed by: Arjun Amador M.D. Narrative 10/15/2023 11:58 AM ACCOUNTING METHODS ANALYST EXAMINATION: ??Computed tomography of the chest without [...] * (ABNORMAL) POCT glucose (10/15/2023 7:56 AM ACCOUNTING METHODS ANALYST) Glucose, POC 249(H) 70 - 140 mg/dL [facility] Comment: For Glucose values <35 mg/dl when Hematocrit is >60 mg/dl,the test may not accurately detect significant hypoglycemia,and testing in the Laboratory should be considered if clinically indicated. Blood 10/15/2023 7:56 AM ACCOUNTING METHODS ANALYST 10/15/2023 7:56 AM ACCOUNTING METHODS ANALYST Frank Cody MD LAB POCT ORDERABLES - DEVICE Fin al Result Performing Organization Address [facility] Co de Phone Number [facility] [address] [place] [address] * (ABNORMAL) POCT glucose (10/15/2023 5:34 AM ACCOUNTING METHODS ANALYST) [facility] Signature Glucose, POC 338(H) 70 - 140 mg/dL [facility] Comment: For Glucose values <35 mg/dl when Hematocrit is >60 mg/dl,the test may not accurately detect significant hypoglycemia,and testing in the Laboratory should be considered if clinically indicated. Glucose comment 1 RN/MD Notified [facility] Blood 10/15/2023 5:34 AM ACCOUNTING METHODS ANALYST 10/15/2023 5:34 AM ACCOUNTING METHODS ANALYST Result [facility] Frank Cody MD LAB POCT ORDERABLES - DEVICE Fin al Result Performing Organization Address [facility] Co de Phone Number [facility] [address] [place] [employer] [place] [address] * (ABNORMAL) POCT glucose (10/15/2023 4:35 AM ACCOUNTING METHODS ANALYST) Glucose, POC 344(H) 70 - 140 mg/dL [facility] Comment: For Glucose values <35 mg/dl when Hematocrit is >60 mg/dl,the test may not accurately detect significant hypoglycemia,and testing in the Laboratory should be considered if clinically indicated. Glucose comment 1 RN/MD Notified [facility] Blood 10/15/2023 4:35 AM ACCOUNTING METHODS ANALYST 10/15/2023 4:35 AM ACCOUNTING METHODS ANALYST Frank Cody MD LAB POCT ORDERABLES - DEVICE Fin al Result Performing Organization Address [facility]/ZIP Co de Phone Number [facility] [address] [place] [address] * (ABNORMAL) aPTT (10/15/2023 4:27 AM ACCOUNTING METHODS ANALYST) aPTT 75(H) 28 - 38 sec [facility] Comment: Interpretive Data Heparin therapeutic range: 66.0 - 100.0 seconds. Range based on correlation with therapeutic heparin activity range of 0.3 - 0.7 Units/mL. Current interpretive data was last revised on 2023. Blood 10/15/2023 4:27 AM ACCOUNTING METHODS ANALYST 10/15/2023 4:38 AM ACCOUNTING METHODS ANALYST Narrative [facility] - 10/15/2023 4:55 AM ACCOUNTING METHODS ANALYST Draw STAT PTT 6 hrs after initiation of heparin infusion, draw STAT PTT 6 hours after each dose change, and every 6 hours until 2 consecutive PTTs are within therapeutic range. Once two consecutive PTT's are therapeutic (66-100 seconds), then draw PTT every AM until heparin is discontinued. Vinay Pratt DO LAB BLOOD ORDERABLES F inal Result Performing Organization Address City/[facility]/ZIP Co de Phone Number [facility] [address] [place] [address] * (ABNORMAL) POCT glucose (10/15/2023 1:30 AM ACCOUNTING METHODS ANALYST) Glucose, POC 334(H) 70 - 140 mg/dL [facility] Comment: For Glucose values <35 mg/dl when Hematocrit is >60 mg/dl,the test may not accurately detect significant hypoglycemia,and testing in the Laboratory should be considered if clinically indicated. Blood 10/15/2023 1:30 AM ACCOUNTING METHODS ANALYST 10/15/2023 1:30 AM ACCOUNTING METHODS ANALYST us Frank Cody MD LAB POCT ORDERABLES - DEVICE Fin al Result [facility] [address] [place] [address] * (ABNORMAL) Renal function panel (10/15/2023 1:06 AM ACCOUNTING METHODS ANALYST) Sodium 130(L) 135 - 145 mmol/L [facility] Potassium, pl 4.3 3.3 - 4.9 mmol/L [facility] Chloride 89(L) 97 - 110 mmol/L [facility] CO2 22 22 - 32 mmol/L [facility] Anion gap 19(H) 2 - 15 mmol/L [facility] BUN 78(H) 6 - 25 mg/dL [facility] Creatinine 10.57(H) 0.80 - 1.30 mg/dL [facility] Glucose 308(H) 70 - 199 mg/dL [facility] Comment: Interpretive Data Fasting glucose [...] 2022. Calcium 8.2(L) 8.5 - 10.3 mg/dL [facility] Phosphorus, pl 5.7(H) 2.3 - 4.5 mg/dL [facility] Albumin 3.3(L) 3.5 - 5.0 g/dL [facility] Blood 10/15/2023 1:06 AM ACCOUNTING METHODS ANALYST 10/15/2023 1:20 AM ACCOUNTING METHODS ANALYST Frank Cody MD LAB BLOOD ORDERABLES Final Resul t Performing Organization Address City/[facility] Co de Phone Number [facility] [address] Department [place] [place] [address] * eGFR (10/15/2023 1:06 AM ACCOUNTING METHODS ANALYST) eGFR 5 mL/min/1. 73 m2 [facility] Comment: Interpretive Data Reference Interval [...] last reviewed 2021. Blood 10/15/2023 1:06 AM ACCOUNTING METHODS ANALYST 10/15/2023 1:20 AM ACCOUNTING METHODS ANALYST Frank Cody MD LAB BLOOD ORDERABLES Final Resul t Performing Organization Address City/[facility]/ZIP Co de Phone Number [facility] [address] Department [employer] [place], [place] [phone] * (ABNORMAL) aPTT (10/15/2023 1:06 AM ACCOUNTING METHODS ANALYST) Pathologist [facility] aPTT 69(H) 28 - 38 sec [facility] Comment: Interpretive Data Heparin therapeutic range: 66.0 - 100.0 seconds. Range based on correlation with therapeutic heparin activity range of 0.3 - 0.7 Units/mL. Current interpretive data was last revised on 2023. Blood 10/15/2023 1:06 AM ACCOUNTING METHODS ANALYST 10/15/2023 1:20 AM ACCOUNTING METHODS ANALYST us Frank Cody MD LAB BLOOD ORDERABLES Final Resul t [facility] [address] [place] [address] * (ABNORMAL) Differential, auto (10/15/2023 1:06 AM ACCOUNTING METHODS ANALYST) Pathologist [facility] Neutrophil abs 4.3 1.5 - 6.5 K/cumm [facility] Imm gran abs 0.1 0.0 - 0.1 K/cumm [facility] Lymphocyte abs 2.2 0.8 - 3.3 K/cumm [facility] Monocyte abs 0.9(H) 0.2 - 0.8 K/cumm [facility] Eosinophil abs 0.1 0.0 - 0.5 K/cumm [facility] Basophil abs 0.0 0.0 - 0.1 K/cumm [facility] Neutrophil pct 56.6 % [facility] Comment: Interpretive Data Percent cell count reference ranges are not reported, since discordance with absolute values may lead to misinterpretation of CBC data. Current Interpretive Data was last revised on 2017. Imm gran pct 1.2 % [facility] Comment: Interpretive Data Percent cell count reference ranges are not reported, since discordance with absolute values may lead to misinterpretation of CBC data. Current Interpretive Data was last revised on 2017. Lymphocyte pct 28.4 % [facility] Comment: Interpretive Data Percent cell count reference ranges are not reported, since discordance with absolute values may lead to misinterpretation of CBC data. Current Interpretive Data was last revised on 2017. Monocyte pct 12.0 % [facility] Comment: Interpretive Data Percent cell count reference ranges are not reported, since discordance with absolute values may lead to misinterpretation of CBC data. Current Interpretive Data was last revised on 2017. Eosinophil pct 1.5 % [facility] Comment: Interpretive Data Percent cell count reference ranges are not reported, since discordance with absolute values may lead to misinterpretation of CBC data. Current Interpretive Data was last revised on 2017. Basophil pct 0.3 % [facility] Comment: Interpretive Data Percent cell count reference ranges are not reported, since discordance with absolute values may lead to misinterpretation of CBC data. Current Interpretive Data was last revised on 2017. Blood 10/15/2023 1:06 AM ACCOUNTING METHODS ANALYST 10/15/2023 1:20 AM ACCOUNTING METHODS ANALYST us Vinay Pratt DO LAB BLOOD ORDERABLES F inal Result Performing Organization Address City/[facility]/ZIP Co de Phone Number [facility] [address] Department [place] [employer] [place] [place] [address] * (ABNORMAL) Iron profile w/ IBC (10/15/2023 1:06 AM ACCOUNTING METHODS ANALYST) Iron 72 50 - 150 mcg/dL [facility] TIBC 205(L) 250 - 400 mcg/dL [facility] Transferrin saturation 35 20 - 50 % [facility] Blood 10/15/2023 1:06 AM ACCOUNTING METHODS ANALYST 10/15/2023 1:20 AM ACCOUNTING METHODS ANALYST us Fernandez Carranza MD LAB BLOOD ORDERABLES Final Resu lt [facility] [address] Department [place] [place] [address] * (ABNORMAL) Ferritin (10/15/2023 1:06 AM ACCOUNTING METHODS ANALYST) Ferritin 1,322(H) 30 - 400 ng/mL [facility] Blood 10/15/2023 1:06 AM ACCOUNTING METHODS ANALYST 10/15/2023 1:20 AM ACCOUNTING METHODS ANALYST us Fernandez Carranza MD LAB BLOOD ORDERABLES Final Resu lt Performing Organization Address [facility] Co de Phone Number [facility] [address] Department [employer] [place], [place] [phone] * (ABNORMAL) CBC with auto differential (10/15/2023 1:06 AM ACCOUNTING METHODS ANALYST) [facility] WBC 7.6 3.8 - 9.9 K/cumm [facility] Hgb 9.4(L) 13.0 - 17.5 g/dL [facility] Hct 29.4(L) 38.9 - 50.3 % [facility] Plt 375 150 - 400 K/cumm [facility] MPV 11.0 9.1 - 12.3 fL [facility] RBC 3.23(L) 4.30 - 5.80 M/cumm [facility] MCV 91.0 81.3 - 96.4 fL [facility] MCH 29.1 27.1 - 33.3 pg [facility] MCHC 32.0(L) 32.3 - 35.7 g/dL [facility] RDW CV 14.0 11.1 - 14.9 % [facility] RDW SD 45.5 35.7 - 48.1 fL [facility] NRBC abs 0.02(H) 0.00 - 0.01 K/cumm [facility] Blood 10/15/2023 1:06 AM ACCOUNTING METHODS ANALYST 10/15/2023 1:20 AM ACCOUNTING METHODS ANALYST us Vinay Pratt DO LAB BLOOD ORDERABLES F inal Result Performing Organization Address [facility]/ZIP Co de Phone Number [facility] [address] Department of [employer] [place], [place] [id number] * (ABNORMAL) aPTT (10/14/2023 8:41 PM ACCOUNTING METHODS ANALYST) aPTT 75(H) 28 - 38 sec [facility] Comment: Interpretive Data Heparin therapeutic range: 66.0 - 100.0 seconds. Range based on correlation with therapeutic heparin activity range of 0.3 - 0.7 Units/mL. Current interpretive data was last revised on 2023. Blood 10/14/2023 8:41 PM ACCOUNTING METHODS ANALYST 10/14/2023 8:52 PM ACCOUNTING METHODS ANALYST us Frank Cody MD LAB BLOOD ORDERABLES Final Resul t Performing Organization Address [facility] de Phone Number [facility] [address] [facility] [place] [address] * (ABNORMAL) POCT glucose (10/14/2023 8:24 PM ACCOUNTING METHODS ANALYST) Glucose, POC 232(H) 70 - 140 mg/dL [facility] Comment: For Glucose values <35 mg/dl when Hematocrit is >60 mg/dl,the test may not accurately detect significant hypoglycemia,and testing in the Laboratory should be considered if clinically indicated. Blood 10/14/2023 8:24 PM ACCOUNTING METHODS ANALYST 10/14/2023 8:24 PM ACCOUNTING METHODS ANALYST Result Todd Cody MD LAB POCT ORDERABLES - DEVICE Fin al Result Performing Organization Address [facility] de Phone Number [facility] [address] [facility] [place] [address] * (ABNORMAL) POCT glucose (10/14/2023 5:28 PM ACCOUNTING METHODS ANALYST) Glucose, POC 217(H) 70 - 140 mg/dL [facility] Comment: For Glucose values <35 mg/dl when Hematocrit is >60 mg/dl,the test may not accurately detect significant hypoglycemia,and testing in the Laboratory should be considered if clinically indicated. Blood 10/14/2023 5:28 PM ACCOUNTING METHODS ANALYST 10/14/2023 5:28 PM ACCOUNTING METHODS ANALYST us Frank Cody MD LAB POCT ORDERABLES - DEVICE Fin al Result Performing Organization Address [facility] Co de Phone Number [facility] [address] [facility] [employer] [place], [place] [id number] * (ABNORMAL) aPTT (10/14/2023 2:39 PM ACCOUNTING METHODS ANALYST) aPTT 43(H) 28 - 38 sec [facility] Comment: Interpretive Data Heparin therapeutic range: 66.0 - 100.0 seconds. Range based on correlation with therapeutic heparin activity range of 0.3 - 0.7 Units/mL. Current interpretive data was last revised on 2023. Blood 10/14/2023 2:39 PM ACCOUNTING METHODS ANALYST 10/14/2023 2:39 PM ACCOUNTING METHODS ANALYST us Abelardo Randle MD LAB BLOOD ORDERABLES Final Result Performing Organization Address [facility] Co de Phone Number [facility] [address] [facility] [place] [address] * POCT glucose (10/14/2023 12:15 PM ACCOUNTING METHODS ANALYST) Glucose, POC 140 70 - 140 mg/dL [facility] Comment: For Glucose values <35 mg/dl when Hematocrit is >60 mg/dl,the test may not accurately detect significant hypoglycemia,and testing in the Laboratory should be considered if clinically indicated. Blood 10/14/2023 12:1 5 PM ACCOUNTING METHODS ANALYST 10/14/2023 12:15 PM ACCOUNTING METHODS ANALYST Frank Cody MD LAB POCT ORDERABLES - DEVICE Fin al Result Performing Organization Address [facility] Co de Phone Number [facility] [address] [facility] [employer] [place], [place] [phone] * POCT glucose (10/14/2023 11:06 AM ACCOUNTING METHODS ANALYST) Glucose, POC 138 70 - 140 mg/dL [facility] Comment: For Glucose values <35 mg/dl when Hematocrit is >60 mg/dl,the test may not accurately detect significant hypoglycemia,and testing in the Laboratory should be considered if clinically indicated. Blood 10/14/2023 11:0 6 AM ACCOUNTING METHODS ANALYST 10/14/2023 11:06 AM ACCOUNTING METHODS ANALYST us Frank Cody MD LAB POCT ORDERABLES - DEVICE Fin al Result Performing Organization Address [facility] de Phone Number [facility] [address] [facility] [place] [address] * POCT glucose (10/14/2023 8:34 AM ACCOUNTING METHODS ANALYST) Glucose, POC 134 70 - 140 mg/dL [facility] Comment: For Glucose values <35 mg/dl when Hematocrit is >60 mg/dl,the test may not accurately detect significant hypoglycemia,and testing in the Laboratory should be considered if clinically indicated. Blood 10/14/2023 8:34 AM ACCOUNTING METHODS ANALYST 10/14/2023 8:34 AM ACCOUNTING METHODS ANALYST us Frank Cody MD LAB POCT ORDERABLES - DEVICE Fin al Result Performing Organization Address [facility] de Phone Number [facility] [address] [place] [address] * (ABNORMAL) POCT glucose (10/14/2023 5:56 AM ACCOUNTING METHODS ANALYST) Glucose, POC 259(H) 70 - 140 mg/dL [facility] Comment: For Glucose values <35 mg/dl when Hematocrit is >60 mg/dl,the test may not accurately detect significant hypoglycemia,and testing in the Laboratory should be considered if clinically indicated. Blood 10/14/2023 5:56 AM ACCOUNTING METHODS ANALYST 10/14/2023 5:56 AM ACCOUNTING METHODS ANALYST us Frank Cody MD LAB POCT ORDERABLES - DEVICE Fin al Result Performing Organization Address [facility] Co de Phone Number [facility] [address] [place] [address] * eGFR (10/14/2023 5:53 AM ACCOUNTING METHODS ANALYST) eGFR 5 mL/min/1. 73 m2 [facility] Comment: Interpretive Data Reference Interval [...] last reviewed 2021. Blood 10/14/2023 5:53 AM ACCOUNTING METHODS ANALYST 10/14/2023 6:04 AM ACCOUNTING METHODS ANALYST us Vinay Pratt DO LAB BLOOD ORDERABLES F inal Result [facility] [address] [place] [address] * (ABNORMAL) aPTT (10/14/2023 5:53 AM ACCOUNTING METHODS ANALYST) aPTT 56(H) 28 - 38 sec [facility] Comment: Interpretive Data Heparin therapeutic range: 66.0 - 100.0 seconds. Range based on correlation with therapeutic heparin activity range of 0.3 - 0.7 Units/mL. Current interpretive data was last revised on 2023. Blood 10/14/2023 5:53 AM ACCOUNTING METHODS ANALYST 10/14/2023 6:04 AM ACCOUNTING METHODS ANALYST Vinay Pratt DO LAB BLOOD ORDERABLES F inal Result Performing Organization Address [facility]/ZIP Co de Phone Number [facility] [address] [place] [address] * (ABNORMAL) Basic metabolic panel (10/14/2023 5:53 AM ACCOUNTING METHODS ANALYST) [facility] Sodium 131(L) 135 - 145 mmol/L [facility] Potassium, pl 4.3 3.3 - 4.9 mmol/L [facility] Chloride 92(L) 97 - 110 mmol/L [facility] CO2 23 22 - 32 mmol/L [facility] Anion gap 16(H) 2 - 15 mmol/L [facility] BUN 75(H) 6 - 25 mg/dL [facility] Creatinine 10.22(H) 0.80 - 1.30 mg/dL [facility] Glucose 287(H) 70 - 199 mg/dL [facility] Comment: Interpretive Data Fasting glucose [...] 2022. Calcium 9.0 8.5 - 10.3 mg/dL [facility] Blood 10/14/2023 5:53 AM ACCOUNTING METHODS ANALYST 10/14/2023 6:04 AM ACCOUNTING METHODS ANALYST Vinay Pratt DO LAB BLOOD ORDERABLES F inal Result Performing Organization Address City/[facility]/ZIP Co de Phone Number [facility] [address] [facility] [place] [address] * (ABNORMAL) POCT glucose (10/14/2023 3:58 AM ACCOUNTING METHODS ANALYST) Glucose, POC 382(H) 70 - 140 mg/dL [facility] Comment: For Glucose values <35 mg/dl when Hematocrit is >60 mg/dl,the test may not accurately detect significant hypoglycemia,and testing in the Laboratory should be considered if clinically indicated. Blood 10/14/2023 3:58 AM ACCOUNTING METHODS ANALYST 10/14/2023 3:58 AM ACCOUNTING METHODS ANALYST us Frank Cody MD LAB POCT ORDERABLES - DEVICE Fin al Result Performing Organization Address [facility] Co de Phone Number [facility] [address] [facility] [place] [address] * (ABNORMAL) POCT glucose (10/14/2023 3:04 AM ACCOUNTING METHODS ANALYST) Glucose, POC 378(H) 70 - 140 mg/dL [facility] Comment: For Glucose values <35 mg/dl when Hematocrit is >60 mg/dl,the test may not accurately detect significant hypoglycemia,and testing in the Laboratory should be considered if clinically indicated. Blood 10/14/2023 3:04 AM ACCOUNTING METHODS ANALYST 10/14/2023 3:04 AM ACCOUNTING METHODS ANALYST us Frank Cody MD LAB POCT ORDERABLES - DEVICE Fin al Result Performing Organization Address [facility] Co de Phone Number [facility] [address] [facility] [place] [address] * (ABNORMAL) POCT glucose (10/14/2023 2:05 AM ACCOUNTING METHODS ANALYST) Glucose, POC 425(H) 70 - 140 mg/dL [facility] Comment: For Glucose values <35 mg/dl when Hematocrit is >60 mg/dl,the test may not accurately detect significant hypoglycemia,and testing in the Laboratory should be considered if clinically indicated. Blood 10/14/2023 2:05 AM ACCOUNTING METHODS ANALYST 10/14/2023 2:05 AM ACCOUNTING METHODS ANALYST Frank Cody MD LAB POCT ORDERABLES - DEVICE Fin al Result Performing Organization Address [facility] Co de Phone Number [facility] [address] [place] [address] * eGFR (10/14/2023 1:04 AM ACCOUNTING METHODS ANALYST) Pathologist [facility] eGFR 5 mL/min/1. 73 m2 [facility] Comment: Interpretive Data Reference Interval [...] last reviewed 2021. Blood 10/14/2023 1:04 AM ACCOUNTING METHODS ANALYST 10/14/2023 1:36 AM ACCOUNTING METHODS ANALYST Vinay Pratt DO LAB BLOOD ORDERABLES F inal Result Performing Organization Address [facility]/State/ZIP Co de Phone Number [facility] [address] [place] [address] * (ABNORMAL) Differential, auto (10/14/2023 1:04 AM ACCOUNTING METHODS ANALYST) Neutrophil abs 4.8 1.5 - 6.5 K/cumm [facility] Imm gran abs 0.1 0.0 - 0.1 K/cumm [facility] Lymphocyte abs 0.7(L) 0.8 - 3.3 K/cumm [facility] Monocyte abs 0.7 0.2 - 0.8 K/cumm [facility] Eosinophil abs 0.0 0.0 - 0.5 K/cumm [facility] Basophil abs 0.0 0.0 - 0.1 K/cumm [facility] Neutrophil pct 77.4 % [facility] Comment: Interpretive Data Percent cell count reference ranges are not reported, since discordance with absolute values may lead to misinterpretation of CBC data. Current Interpretive Data was last revised on 2017. Imm gran pct 1.0 % [facility] Comment: Interpretive Data Percent cell count reference ranges are not reported, since discordance with absolute values may lead to misinterpretation of CBC data. Current Interpretive Data was last revised on 2017. Lymphocyte pct 10.4 % [facility] Comment: Interpretive Data Percent cell count reference ranges are not reported, since discordance with absolute values may lead to misinterpretation of CBC data. Current Interpretive Data was last revised on 2017. Monocyte pct 11.2 % [facility] Comment: Interpretive Data Percent cell count reference ranges are not reported, since discordance with absolute values may lead to misinterpretation of CBC data. Current Interpretive Data was last revised on 2017. Eosinophil pct 0.0 % [facility] Comment: Interpretive Data Percent cell count reference ranges are not reported, since discordance with absolute values may lead to misinterpretation of CBC data. Current Interpretive Data was last revised on 2017. Basophil pct 0.0 % [facility] Comment: Interpretive Data Percent cell count reference ranges are not reported, since discordance with absolute values may lead to misinterpretation of CBC data. Current Interpretive Data was last revised on 2017. Blood 10/14/2023 1:04 AM ACCOUNTING METHODS ANALYST 10/14/2023 1:36 AM ACCOUNTING METHODS ANALYST Vinay Pratt [facility] BLOOD ORDERABLES F inal Result Performing Organization Address [facility] de Phone Number [facility] [address] [facility] [place] [address] * (ABNORMAL) aPTT (10/14/2023 1:04 AM ACCOUNTING METHODS ANALYST) aPTT 68(H) 28 - 38 sec [facility] Comment: Interpretive Data Heparin therapeutic range: 66.0 - 100.0 seconds. Range based on correlation with therapeutic heparin activity range of 0.3 - 0.7 Units/mL. Current interpretive data was last revised on 2023. Blood 10/14/2023 1:04 AM ACCOUNTING METHODS ANALYST 10/14/2023 1:36 AM ACCOUNTING METHODS ANALYST Narrative [facility] - 10/14/2023 1:49 AM ACCOUNTING METHODS ANALYST Baseline prior to heparin initiation Vinay Pratt [facility] BLOOD ORDERABLES F inal Result Performing Organization Address [facility] de Phone Number [facility] [address] [place] [address] * Protime-INR (10/14/2023 1:04 AM ACCOUNTING METHODS ANALYST) PT 13.5 10.3 - 13.7 sec [facility] INR 1.18 0.90 - 1.20 [facility] Comment: Interpretive data Oral anticoagulant therapeutic ranges: Venous thromboembolism prophylaxis or treatment: 2.0-3.0 CARDIOLOGY Standard range: 2.0-3.0 High-intensity range: 2.5-3.5 Refer to indication-specific guidelines for appropriate target ranges for prosthetic heart valve replacement. Current interpretive data was last revised on 2019. Blood 10/14/2023 1:04 AM ACCOUNTING METHODS ANALYST 10/14/2023 1:36 AM ACCOUNTING METHODS ANALYST Narrative [facility] - 10/14/2023 1:49 AM ACCOUNTING METHODS ANALYST Baseline prior to heparin initiation Vinay Pratt DO LAB BLOOD ORDERABLES F inal Result Performing Organization Address City/[facility]/ZIP Co de Phone Number [facility] [address] Department [place] [employer] [place] [place] [address] * (ABNORMAL) CBC with auto differential (10/14/2023 1:04 AM ACCOUNTING METHODS ANALYST) Pathologist [facility] WBC 6.2 3.8 - 9.9 K/cumm [facility] Hgb 9.4(L) 13.0 - 17.5 g/dL [facility] Hct 29.0(L) 38.9 - 50.3 % [facility] Plt 357 150 - 400 K/cumm [facility] MPV 11.0 9.1 - 12.3 fL [facility] RBC 3.21(L) 4.30 - 5.80 M/cumm [facility] MCV 90.3 81.3 - 96.4 fL [facility] MCH 29.3 27.1 - 33.3 pg [facility] MCHC 32.4 32.3 - 35.7 g/dL [facility] RDW CV 13.6 11.1 - 14.9 % [facility] RDW SD 44.1 35.7 - 48.1 fL [facility] NRBC abs 0.00 0.00 - 0.01 K/cumm [facility] Blood 10/14/2023 1:04 AM ACCOUNTING METHODS ANALYST 10/14/2023 1:36 AM ACCOUNTING METHODS ANALYST Vinay Pratt DO LAB BLOOD ORDERABLES F inal Result [facility] [address] Department [place] [place] [address] * (ABNORMAL) Comprehensive metabolic panel (10/14/2023 1:04 AM ACCOUNTING METHODS ANALYST) Pathologist [facility] Sodium 130(L) 135 - 145 mmol/L [facility] Potassium, pl 4.3 3.3 - 4.9 mmol/L [facility] Chloride 90(L) 97 - 110 mmol/L [facility] CO2 21(L) 22 - 32 mmol/L [facility] Anion gap 19(H) 2 - 15 mmol/L [facility] BUN 66(H) 6 - 25 mg/dL [facility] Creatinine 10.57(H) 0.80 - 1.30 mg/dL [facility] Glucose 453(C) 70 - 199 mg/dL [facility] Comment: Critical result called to and read back by Brit Zeng RN on 10/14/2023 0211 to [email or web address] Interpretive Data Fasting glucose >/= 126 mg/dl [...] 2022. Calcium 9.2 8.5 - 10.3 mg/dL [facility] Bilirubin, total 0.3 0.1 - 1.2 mg/dL [facility] Protein, pl 6.4(L) 6.5 - 8.5 g/dL [facility] Albumin 3.4(L) 3.5 - 5.0 g/dL [facility] Alk phos 98 40 - 130 Units/L [facility] ALT 21 7 - 55 Units/L [facility] AST 28 10 - 50 Units/L [facility] Blood 10/14/2023 1:04 AM ACCOUNTING METHODS ANALYST 10/14/2023 1:36 AM ACCOUNTING METHODS ANALYST us Vinay Pratt DO LAB BLOOD ORDERABLES F inal Result [facility] [address] [place] [address] * (ABNORMAL) POCT glucose (10/13/2023 11:25 PM ACCOUNTING METHODS ANALYST) Glucose, POC 534(C) 70 - 140 mg/dL [facility] Comment: For Glucose values <35 mg/dl when Hematocrit is >60 mg/dl,the test may not accurately detect significant hypoglycemia,and testing in the Laboratory should be considered if clinically indicated. Glucose comment 1 Glu2: [facility] Blood 10/13/2023 11:2 5 PM ACCOUNTING METHODS ANALYST 10/13/2023 11:25 PM ACCOUNTING METHODS ANALYST us Frank Cody MD LAB POCT ORDERABLES - DEVICE Fin al Result [facility] [address] [place] [address] documented in this encounter Visit Diagnoses Diagnosis CAD in [place] artery- Primary CAD in [place] artery 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[place] artery of [place] heart with stable angina pectoris ([facility]) ([facility]) Aortic stenosis, severe S/P CABG x 3 Postsurgical aortocoronary bypass status NSTEMI (non-ST elevated myocardial infarction) ([facility]) ([facility]) Acute myocardial infarction, subendocardial infarction, episode of care unspecified S/P AVR documented in this encounter Admitting Diagnoses Diagnosis CAD in [place] artery documented in this encounter Administered Medications Inactive Administered Medications - up to 3 most recent administrations Medication Order MAR Action Action Date Dose Rate Site acetaminophen (TYLENOL) 32 mg/mL oral liquid 1,000 mg 1,000 mg, feeding tube, Every 6 hours scheduled, First dose on Mon10/17/23 at 1400, If taking meds per tube., Indications: PainIndications:Pain Given 10/17/2023 11:12 PM ACCOUNTING METHODS ANALYST 1,000 mg Given 10/17/2023 5:00 PM ACCOUNTING METHODS ANALYST 1,000 mg acetaminophen (TYLENOL) tablet 1,000 mg 1,000 mg, oral, Every 6 hours scheduled, First dose on Mon10/17/23 at 1400, If able to swallow medications., Indications: PainIndications:Pain Given 10/20/2023 6:32 AM ACCOUNTING METHODS ANALYST 1,000 mg Given 10/19/2023 11:00 PM ACCOUNTING METHODS ANALYST 1,000 mg Given 10/19/2023 5:21 PM ACCOUNTING METHODS ANALYST 1,000 mg acetaminophen (TYLENOL) tablet 1,000 mg 1,000 mg, oral, Every 6 hours scheduled, First dose (after last modification) on Mon10/20/23 at 1815, If able to swallow medications., Indications: PainIndications:Pain Given 10/27/2023 10:58 AM ACCOUNTING METHODS ANALYST 1,000 mg Given 10/27/2023 6:04 AM ACCOUNTING METHODS ANALYST 1,000 mg Given 10/26/2023 10:57 PM ACCOUNTING METHODS ANALYST 1,000 mg acetaminophen (TYLENOL) tablet 500 mg 500 mg, oral, Every 6 hours PRN, 1st line for pain, Starting on Mon10/27/23 at 1200, If able to swallow medications., Indications: PainIndications:Pain Given 10/31/2023 5:43 AM CDT 500 mg Given 10/30/2023 9:36 PM CDT 500 mg al & mag hydroxide nufaocbvynd-tuzgmzoapidgkfj-tjkhkkmfq-nystatin (MAGIC MOUTHWASH) oral suspension 1-1-1-1 20 mL [...] Mon10/14/23 at 1254 Given 10/16/2023 9:42 PM ACCOUNTING METHODS ANALYST 1 mg Given 10/15/2023 6:18 PM ACCOUNTING METHODS ANALYST 1 mg Given 10/14/2023 8:25 PM ACCOUNTING METHODS ANALYST 1 mg aminocaproic acid (AMICAR) 9,500 mg in sodium chloride 0.9% 100 mL IVPB 9,500 mg (rounded from 9,465 mg = 75 mg/kg ? 126.2 kg), intravenous, at 138 mL/hr, Administer over 60 Minutes, Once, On Mon10/17/23 at 1900, For 1 dose, Indications: Postsurgical HemorrhageIndications:Postsurgica l Hemorrhage New Bag 10/17/2023 6:38 PM ACCOUNTING METHODS ANALYST 9,500 mg 138 mL/hr amiodarone (NEXTERONE) 150 mg/100 mL (1.5 mg/mL) in dextrose (premix) 150 mg 150 mg, intravenous, at 600 mL/hr, Administer over 10 Minutes, Once, On Mon10/23/23 at 0845, For 1 dose, Use filter 0.22 micron or less New Bag 10/23/2023 9:50 AM ACCOUNTING METHODS ANALYST 150 mg 600 mL/hr amiodarone (PACERONE) tablet 200 mg 200 mg, oral, 2 times daily, First dose on Mon10/24/23 at 0900 Given 10/27/2023 8:28 AM ACCOUNTING METHODS ANALYST 200 mg Given 10/26/2023 10:57 PM ACCOUNTING METHODS ANALYST 200 mg Given 10/26/2023 8:37 AM ACCOUNTING METHODS ANALYST 200 mg amiodarone (PACERONE) tablet 200 mg [...] less, Routine New Bag 10/23/2023 2:08 PM ACCOUNTING METHODS ANALYST 1 mg/min 33.3 mL/hr New Bag 10/23/2023 9:55 AM ACCOUNTING METHODS ANALYST 1 mg/min 33.3 mL/hr amiodarone in dextrose (NEXTERONE) 360 mg/200 mL (1.8 mg/mL) infusion (premix) 0.5 mg/min (16.6667 mL/hr, rounded to 16.67 mL/hr), 1.8 mg/mL, intravenous, Continuous, Starting on Mon10/23/23 at 1555, Until Mon10/24/23 at 0726, Use filter 0.22 micron or less, Routine New Bag 10/23/2023 11:47 PM ACCOUNTING METHODS ANALYST 0.5 mg/min 16.67 mL/hr Rate/Dose Change 10/23/2023 4:15 PM ACCOUNTING METHODS ANALYST 0.5 mg/min 16.67 m L/hr aspirin chewable [...] otherwise manipulate tablet/capsule. Given 10/16/2023 8:19 AM ACCOUNTING METHODS ANALYST 81 mg Given 10/15/2023 8:41 AM ACCOUNTING METHODS ANALYST 81 mg Given 10/14/2023 8:52 AM ACCOUNTING METHODS ANALYST 81 mg atorvastatin (LIPITOR) tablet 80 mg [...] Bowel EvacuationIndications:Bowel Evacuation Given 10/16/2023 8:08 PM ACCOUNTING METHODS ANALYST 10 mg bisacodyL (DULCOLAX) suppository 10 mg 10 mg, rectal, Once, On Gregoria 10/19/23 at 1545, For 1 dose, Indications: constipationIndications:constipation Given 10/19/2023 5:21 PM ACCOUNTING METHODS ANALYST 10 mg calcitRIOL (ROCALTROL) capsule 0.25 mcg [...] ST 667 mg Given 10/19/2023 12:07 PM ACCOUNTING METHODS ANALYST 667 mg Given 10/19/2023 8:12 AM ACCOUNTING METHODS ANALYST 667 mg calcium acetate(phosphat bind) (PHOSLO) capsule 667 mg 667 mg, oral, Nightly, First dose on Mon10/18/23 at 2100, Take with food Given 10/19/2023 9:41 PM ACCOUNTING METHODS ANALYST 667 mg Given 10/18/2023 9:47 PM ACCOUNTING METHODS ANALYST 667 mg calcium chloride 1 g/110 mL in sodium chloride 0.9% (premix) solution 1 g 1 g, intravenous, Administer over 60 Minutes, Once, On Mon10/17/23 at 1430, For 1 dose, Indications: hypocalcemiaIndications:hypocalce michele New Bag 10/17/2023 2:19 PM ACCOUNTING METHODS ANALYST 1 g calcium chloride 1 g/110 mL [...] hypocalcemiaIndications:hypocalce michele New Bag 10/18/2023 12:32 AM ACCOUNTING METHODS ANALYST 1,000 mg Carrier Fluids for Secondary Infusion [...] Prophylaxis, SurgicalIndications:Prophylaxis, Surgical Given 10/19/2023 8:17 AM ACCOUNTING METHODS ANALYST 1,000 mg 200 mL/hr Given 10/18/2023 9:07 AM ACCOUNTING METHODS ANALYST 1,000 mg 200 mL/hr ceFAZolin (ANCEF) 1 [...] until manually unheld Given 10/16/2023 8:20 AM ACCOUNTING METHODS ANALYST 0.6 mg desmopressin (DDAVP) 38 mcg in sodium chloride 0.9% 50 mL IVPB 38 mcg (rounded from 37.86 mcg = 0.3 mcg/kg ? 126.2 kg), intravenous, at 119 mL/hr, Administer over 30 Minutes, Once, On Mon10/17/23 at 1515, For 1 dose New Bag 10/17/2023 3:10 PM ACCOUNTING METHODS ANALYST 38 mcg 119 mL/hr dextrose (D10W) 10% bolus 125 mL 125 mL, intravenous, at 500 mL/hr, Administer over 15 Minutes, Every 30 min PRN, low blood glucose, Starting on Mon10/17/23 at 1329, BG less than 60 mg/dL OR BG 60-74 mg/dL and previous BG was greater than 90 mg/dL (Glucose is dropping FAST), Indications: hypoglycemic disorderIndications:hypoglyc emic disorder New Bag 10/19/2023 10:58 AM ACCOUNTING METHODS ANALYST 1,000 mL 500 mL/hr dextrose (D10W) 10% [...] Call MD for each episode of hypoglycemia. 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-15 CONTAINS GLUCOSE 40% W/W (50% W/V), Indications: hypoglycemic disorderIndications:hypoglyc emic disorder dextrose 5% and Lactated Ringer's infusion 10 mL/hr, intravenous, Continuous, Starting on Tu10/17/23 at 1645 Rate/Dose Change 10/17/2023 6:00 PM ACCOUNTING METHODS ANALYST 10 mL/hr 10 mL/hr New Bag 10/17/2023 4:03 PM ACCOUNTING METHODS ANALYST 20 mL/hr 20 mL/hr dextrose 5% and Lactated Ringer's infusion 10 mL/hr, intravenous, Continuous, Starting on Gregoria 10/19/23 at 1145 Rate/Dose Change 10/19/2023 2:53 PM ACCOUNTING METHODS ANALYST 10 mL/hr 10 mL/hr New Bag 10/19/2023 11:17 AM ACCOUNTING METHODS ANALYST 20 mL/hr 20 mL/hr Dianeal low calcium-dextrose 2.5 % 6,000 mL dialysis solution intraperitoneal, Continuous, Starting on 10/14/23 at 1615, For 24 hours, CCPD bag number: 1, Indications: Peritoneal DialysisIndications:Peritoneal Dialysis New Bag 10/15/2023 10:58 PM ACCOUNTING METHODS ANALYST New Bag 10/14/2023 7:22 PM ACCOUNTING METHODS ANALYST Dianeal low calcium-dextrose 2.5 % 6,000 mL dialysis solution intraperitoneal, Continuous, Starting on 10/14/23 at 1615, For 24 hours, CCPD bag number: 2, Indications: Peritoneal DialysisIndications:Peritoneal Dialysis New Bag 10/15/2023 10:58 PM ACCOUNTING METHODS ANALYST New Bag 10/14/2023 7:21 PM ACCOUNTING METHODS ANALYST Dianeal low calcium-dextrose 2.5 % 6,000 mL dialysis solution intraperitoneal, Continuous, Starting on 10/16/23 at 1615, For 24 hours, CCPD bag number: 1, Indications: Peritoneal DialysisIndications:Peritoneal Dialysis New Bag 10/16/2023 6:53 PM ACCOUNTING METHODS ANALYST Dianeal low calcium-dextrose 2.5 % 6,000 mL dialysis solution intraperitoneal, Continuous, Starting on Mon10/16/23 at 1615, For 24 hours, CCPD bag number: 2, Indications: Peritoneal DialysisIndications:Peritoneal Dialysis New Bag 10/16/2023 6:53 PM ACCOUNTING METHODS ANALYST Dianeal low calcium-dextrose 2.5 % 6,000 mL dialysis solution intraperitoneal, Continuous, Starting on Mon10/17/23 at 2145, For 24 hours, CCPD bag number: 1, Indications: Peritoneal DialysisIndications:Peritoneal Dialysis New Bag 10/18/2023 10:57 PM ACCOUNTING METHODS ANALYST New Bag 10/17/2023 10:32 PM ACCOUNTING METHODS ANALYST Dianeal low calcium-dextrose 2.5 % 6,000 mL dialysis solution intraperitoneal, Continuous, Starting on Mon10/17/23 at 2145, For 24 hours, CCPD bag number: 2, Indications: Peritoneal DialysisIndications:Peritoneal Dialysis New Bag 10/20/2023 12:32 AM ACCOUNTING METHODS ANALYST New Bag 10/18/2023 10:56 PM ACCOUNTING METHODS ANALYST New Bag 10/17/2023 10:32 PM ACCOUNTING METHODS ANALYST Dianeal low calcium-dextrose 2.5 % 6,000 mL dialysis solution intraperitoneal, Continuous, Starting on Mon10/18/23 at 2130, For 24 hours, CCPD bag number: 2, Indications: Peritoneal DialysisIndications:Peritoneal Dialysis New Bag 10/20/2023 12:32 AM ACCOUNTING METHODS ANALYST Dianeal low calcium-dextrose 2.5 % 6,000 mL dialysis solution intraperitoneal, Continuous, Starting on Mon10/20/23 at 1630, For 24 days, CCPD bag number: 1, Indications: Peritoneal DialysisIndications:Peritoneal Dialysis New Bag 10/20/2023 7:05 PM ACCOUNTING METHODS ANALYST Dianeal low calcium-dextrose 2.5 % 6,000 mL dialysis solution intraperitoneal, Continuous, Starting on Mon10/20/23 at 1630, For 24 days, CCPD bag number: 2, Indications: Peritoneal DialysisIndications:Peritoneal Dialysis New Bag 10/20/2023 7:04 PM ACCOUNTING METHODS ANALYST Dianeal low calcium-dextrose 2.5 % 6,000 mL with heparin 3,000 Units dialysis solution intraperitoneal, Continuous, Starting on Mon24 at 1800, For 563 hours, CCPD bag number: 1, Indications: Peritoneal DialysisIndications:Peritoneal Dialysis New Bag 10/28/2023 6:17 PM ACCOUNTING METHODS ANALYST New Bag 10/27/2023 7:52 PM ACCOUNTING METHODS ANALYST New Bag 10/26/2023 8:33 PM ACCOUNTING METHODS ANALYST Dianeal low calcium-dextrose 2.5 % 6,000 mL [...] titrate, Routine Rate/Dose Change 10/18/2023 10:30 PM ACCOUNTING METHODS ANALYST 2 mcg/kg/min 3.79 mL/hr Rate/Dose Verify 10/18/2023 10:00 PM ACCOUNTING METHODS ANALYST 3 mcg/kg/min 5.68 mL/hr Rate/Dose Verify 10/18/2023 8:00 PM ACCOUNTING METHODS ANALYST 3 mcg/kg/min 5.68 mL/hr DOBUTamine in dextrose [...] 65, Routine Rate/Dose Verify 10/19/2023 4:00 AM ACCOUNTING METHODS ANALYST 1 mcg/kg/min 1.89 mL/hr Rate/Dose Change 10/19/2023 3:00 AM ACCOUNTING METHODS ANALYST 1 mcg/kg/min 1.89 mL/hr Rate/Dose Verify 10/19/2023 2:00 AM ACCOUNTING METHODS ANALYST 2 mcg/kg/min 3.79 mL/hr docusate (COLACE) 10 mg/mL oral liquid 100 mg 100 mg, feeding tube, 2 times daily, First dose on Mon10/17/23 at 1400, If taking meds per tube. Hold for diarrhea., Indications: constipationIndications:constipation Given 10/17/2023 8:14 PM ACCOUNTING METHODS ANALYST 100 mg docusate sodium (COLACE) capsule 100 [...] DialysisIndications:ESRD on Dialysis Given 10/27/2023 10:12 PM ACCOUNTING METHODS ANALYST 10,000 Units Left Upper Arm ergocalciferol (VITAMIN D) capsule 50,000 Units 50,000 Units, oral, Weekly, First dose on Mon10/14/23 at 1045, Do not crush, break, or open. Therapeutic Interchange for Vitamin D3 50,000 units weekly as approved by [facility] P[facility]T Committee. Given 10/14/2023 12:28 PM ACCOUNTING METHODS ANALYST 50,000 Units Extraneal 7.5% AMBU-FLEX 2,500 mL dialysis solution intraperitoneal, Continuous, Starting on 10/14/23 at 1615, For 24 hours, This is to be used as the last fill, CCPD bag number: 3, Indications: Peritoneal DialysisIndications:Peritone al Dialysis New Bag 10/15/2023 10:59 PM ACCOUNTING METHODS ANALYST New Bag 10/14/2023 7:32 PM ACCOUNTING METHODS ANALYST Extraneal 7.5% AMBU-FLEX 2,500 mL dialysis solution intraperitoneal, Continuous, Starting on Mon10/20/23 at 1630, For 24 days, CCPD bag number: 3, Indications: Peritoneal DialysisIndications:Peritoneal Dialysis New Bag 10/20/2023 7:05 PM ACCOUNTING METHODS ANALYST Extraneal 7.5% AMBU-FLEX 2,500 mL with heparin [...] Mon10/17/23 at 1400 Given 10/17/2023 4:59 PM ACCOUNTING METHODS ANALYST 20 mg famotidine (PEPCID) tablet 20 mg 20 mg, oral, Nightly, First dose on 10/14/23 at 2100 Given 10/16/2023 9:42 PM ACCOUNTING METHODS ANALYST 20 mg Given 10/15/2023 8:16 PM ACCOUNTING METHODS ANALYST 20 mg Given 10/14/2023 9:26 PM ACCOUNTING METHODS ANALYST 20 mg gemfibroziL (LOPID) tablet 600 mg 600 mg, oral, 2 times daily before meals (bkfst, lunch), First dose on 10/14/23 at 0730 Given 10/16/2023 12:24 PM ACCOUNTING METHODS ANALYST 600 mg Given 10/16/2023 8:19 AM ACCOUNTING METHODS ANALYST 600 mg Given 10/15/2023 12:22 PM ACCOUNTING METHODS ANALYST 600 mg gentamicin (GARAMYCIN) 0.1 % cream topical, Daily, First dose on 10/14/23 at 1615, Apply to peritoneal dialysis catheter exit site daily during dressing change. DO NOT SUBSTITUTE WITH OINTMENT., Apply to affected area: dialysis access site, Indications: Infection ProphylaxisIndications:Infection Prophylaxis Given 10/16/2023 8:20 AM ACCOUNTING METHODS ANALYST Given 10/14/2023 7:22 PM ACCOUNTING METHODS ANALYST gentamicin (GARAMYCIN) 0.1 % cream topical, Daily, First dose on 10/16/23 at 1615, Apply to peritoneal dialysis catheter exit site daily during dressing change. DO NOT SUBSTITUTE WITH OINTMENT., Apply to affected area: dialysis access site, Indications: Infection ProphylaxisIndications:Infection Prophylaxis Given 10/16/2023 6:53 PM ACCOUNTING METHODS ANALYST gentamicin (GARAMYCIN) 0.1 % cream topical, Daily, [...] Mon10/24/23 at 0739 Given 10/24/2023 7:45 AM ACCOUNTING METHODS ANALYST 200 mg haloperidol (HALDOL) injection 1 mg 1 mg, intravenous, Once, On Mon10/18/23 at 1615, For 1 dose, If administered IV push, administer over 5 min for adults Given 10/18/2023 3:48 PM ACCOUNTING METHODS ANALYST 1 mg haloperidol (HALDOL) injection 1 mg 1 mg, intravenous, Once, On Gregoria 10/19/23 at 1315, For 1 dose, If administered IV push, administer over 5 min for adults Given 10/19/2023 12:36 PM ACCOUNTING METHODS ANALYST 1 mg heparin 5,000 unit/mL injection 2,000 [...] SyndromeIndications:Acute Coronary Syndrome Given 10/14/2023 2:59 PM ACCOUNTING METHODS ANALYST 3,000 Units heparin 5,000 unit/mL injection 3,000 [...] Coronary Syndrome New Bag 10/17/2023 4:27 AM ACCOUNTING METHODS ANALYST 12.1 Units/kg/hr 14.9 mL/hr New Bag 10/16/2023 11:02 AM ACCOUNTING METHODS ANALYST 12.1 Units/kg/hr 14.9 m L/hr New Bag 10/15/2023 6:16 PM ACCOUNTING METHODS ANALYST 12.1 Units/kg/hr 14.9 mL /hr heparin in [...] is discontinued. , Indications: Mechanical Valve Thromboembolism ProphylaxisIndications:Jack Setter al Valve Thromboembolism Prophylaxis New Bag 10/20/2023 6:32 AM ACCOUNTING METHODS ANALYST 9.3 Units/kg/hr 11.74 mL/hr Rate/Dose Change 10/20/2023 3:30 AM ACCOUNTING METHODS ANALYST 9.3 Units/kg/hr 11 .74 mL/hr Rate/Dose Change 10/19/2023 3:21 PM ACCOUNTING METHODS ANALYST 11.3 Units/kg/hr 1 4.26 mL/hr heparin in [...] fibrillationIndications:atrial fibrillation New Bag 10/27/2023 10:58 AM ACCOUNTING METHODS ANALYST 12.7 Units/kg/hr 16.47 mL/hr New Bag 10/26/2023 4:50 PM ACCOUNTING METHODS ANALYST 12.7 Units/kg/hr 16.47 m L/hr Rate/Dose Verify 10/26/2023 3:28 PM ACCOUNTING METHODS ANALYST 12.7 Units/kg/hr 1 6.47 mL/hr heparin in [...] dose, Indications: PainIndications:Pain Given 10/25/2023 11:13 AM ACCOUNTING METHODS ANALYST 1 tablet HYDROcodone-acetaminophen (NORCO) 5-325 mg per [...] pain., Indications: PainIndications:Pain Given 10/18/2023 8:42 AM ACCOUNTING METHODS ANALYST 0.5 mg HYDROmorphone (PF) (DILAUDID) injection 0.2 mg 0.2 mg, intravenous, Administer over 2 Minutes, Every 2 hours PRN, breakthrough pain, Starting on Mon10/17/23 at 1324, May administer 1 hour after second dose of 1st line analgesic agent for uncontrolled or increasing pain., Indications: PainIndications:Pain Given 10/18/2023 7:13 AM ACCOUNTING METHODS ANALYST 0.2 mg insulin glargine (LANTUS, SEMGLEE) 100 unit/mL injection 15 Units 15 Units, subcutaneous, Every morning, First dose (after last modification) on Mon10/14/23 at 0915, Do not mix with other insulins Given 10/14/2023 10:04 AM ACCOUNTING METHODS ANALYST 15 Units Left Upper Arm insulin glargine (LANTUS, SEMGLEE) 100 unit/mL injection 20 Units 20 Units, subcutaneous, Every morning, First dose (after last modification) on 10/16/23 at 0900, Do not mix with other insulins Given 10/16/2023 8:19 AM ACCOUNTING METHODS ANALYST 20 Units Left Lower Abdomen insulin glargine (LANTUS, SEMGLEE) 100 unit/mL injection 30 Units 30 Units, subcutaneous, Every morning, First dose (after last modification) on 10/15/23 at 0900, Do not mix with other insulins Given 10/15/2023 8:40 AM ACCOUNTING METHODS ANALYST 30 Units Right Upper Arm insulin lispro [...] Diabetes MellitusIndications:Diabetes Mellitus Given 10/14/2023 4:01 AM ACCOUNTING METHODS ANALYST 10 Units Left Upper Arm Given 10/14/2023 2:24 AM ACCOUNTING METHODS ANALYST 10 Units Le ft Upper Arm insulin [...] Diabetes MellitusIndications:Diabetes Mellitus Given 10/16/2023 8:20 AM ACCOUNTING METHODS ANALYST 6 Units Left Lower Abdomen Given 10/15/2023 12:22 PM ACCOUNTING METHODS ANALYST 2 Units R ight Upper Abdomen Given 10/15/2023 8:40 AM ACCOUNTING METHODS ANALYST 4 Units Ri ght Upper Arm insulin [...] Diabetes MellitusIndications:Diabetes Mellitus Given 10/21/2023 1:18 PM ACCOUNTING METHODS ANALYST 6 Units Left Upper Arm Given 10/21/2023 8:38 AM ACCOUNTING METHODS ANALYST 6 Units Ri ght Upper Arm insulin [...] manually unheldIndications:Diabetes Mellitus Given 10/23/2023 8:03 AM ACCOUNTING METHODS ANALYST 4 Units Right Upper Arm Given 10/22/2023 9:17 PM ACCOUNTING METHODS ANALYST 2 Units Le ft Upper Arm Given 10/22/2023 1:39 PM ACCOUNTING METHODS ANALYST 2 Units Ri ght Upper Arm insulin lispro (HumaLOG, ADMELOG) 100 unit/mL injection 1 Units 1 Units, subcutaneous, Once, On Mon10/17/23 at 0245, For 1 dose Given 10/17/2023 2:33 AM ACCOUNTING METHODS ANALYST 1 Units Left Lower Abdomen insulin lispro (HumaLOG, ADMELOG) 100 unit/mL injection 10 Units 10 Units, subcutaneous, 3 times daily with meals, First dose (after last modification) on Mon10/16/23 at 1800 Given 10/16/2023 5:33 PM ACCOUNTING METHODS ANALYST 10 Units Left Lower Abdomen insulin lispro (HumaLOG, ADMELOG) 100 unit/mL injection 12 Units 12 Units, subcutaneous, 3 times daily with meals, First dose (after last modification) on Mon10/15/23 at 0800 Given 10/16/2023 12:24 PM ACCOUNTING METHODS ANALYST 12 Units Left Lower Abdomen Given 10/16/2023 8:19 AM ACCOUNTING METHODS ANALYST 12 Units Le ft Lower Abdomen Given 10/15/2023 6:16 PM ACCOUNTING METHODS ANALYST 12 Units Le ft Upper Arm insulin lispro (HumaLOG, ADMELOG) 100 unit/mL injection 3 Units 3 Units, subcutaneous, Once, On Tu10/17/23 at 0700, For 1 dose Given 10/17/2023 6:24 AM ACCOUNTING METHODS ANALYST 3 Units Left Lower Abdomen insulin lispro [...] Diabetes MellitusIndications:Diabetes Mellitus Given 10/20/2023 1:23 PM ACCOUNTING METHODS ANALYST 3 Units Right Upper Arm Given 10/20/2023 9:40 AM ACCOUNTING METHODS ANALYST 3 Units Le ft Upper Arm insulin lispro (HumaLOG, ADMELOG) 100 unit/mL injection 4 Units 4 Units, subcutaneous, Once, On 10/14/23 at 2200, For 1 dose Given 10/14/2023 9:27 PM ACCOUNTING METHODS ANALYST 4 Units Left Lower Abdomen insulin lispro [...] manually unheldIndications:Diabetes Mellitus Given 10/23/2023 8:03 AM ACCOUNTING METHODS ANALYST 4 Units Right Upper Arm insulin lispro (HumaLOG, ADMELOG) 100 unit/mL injection 5 Units 5 Units, subcutaneous, 3 times daily with meals, First dose (after last modification) on 10/14/23 at 1030 Given 10/14/2023 5:33 PM ACCOUNTING METHODS ANALYST 5 Units Left Upper Arm Given 10/14/2023 10:04 AM ACCOUNTING METHODS ANALYST 5 Units L eft Upper Arm insulin [...] For 1 dose Given 10/15/2023 1:51 AM ACCOUNTING METHODS ANALYST 6 Units Left Lower Abdomen insulin lispro (HumaLOG, ADMELOG) 100 unit/mL injection 6 Units 6 Units, subcutaneous, Once, On Mon10/15/23 at 0630, For 1 dose Given 10/15/2023 6:06 AM ACCOUNTING METHODS ANALYST 6 Units Right Upper Arm insulin lispro (HumaLOG, ADMELOG) 100 unit/mL injection 6 Units 6 Units, subcutaneous, Once, On Mon10/16/23 at 0545, For 1 dose Given 10/16/2023 5:29 AM ACCOUNTING METHODS ANALYST 6 Units Left Lower Abdomen insulin lispro [...] Diabetes MellitusIndications:Diabetes Mellitus Given 10/22/2023 6:43 PM ACCOUNTING METHODS ANALYST 4 Units Left Upper Arm Given 10/22/2023 1:39 PM ACCOUNTING METHODS ANALYST 6 Units Ri ght Upper Arm Given 10/22/2023 8:23 AM ACCOUNTING METHODS ANALYST 6 Units Ri ght Upper Arm insulin NPH (HumuLIN N, NovoLIN N) 100 unit/mL injection 15 Units 15 Units, subcutaneous, Daily, First dose on Mon10/20/23 at 0900, Reason for prescribing NPH: basal, Indications: Diabetes MellitusIndications:Diabetes Mellitus Given 10/21/2023 8:38 AM ACCOUNTING METHODS ANALYST 15 Units Left Upper Arm Given 10/20/2023 9:40 AM ACCOUNTING METHODS ANALYST 15 Units Le ft Upper Abdomen insulin NPH (HumuLIN N, NovoLIN N) 100 unit/mL injection 15 Units 15 Units, subcutaneous, Daily, First dose (after last modification) on Mon10/23/23 at 0900, Reason for prescribing NPH: basal, Indications: Diabetes Mellitus, On hold since Mon10/23/2023 at 1051 until manually unheldIndications:Diabetes Mellitus Given 10/23/2023 8:03 AM ACCOUNTING METHODS ANALYST 15 Units Right Upper Arm insulin NPH (HumuLIN N, NovoLIN N) 100 unit/mL injection 20 Units 20 Units, subcutaneous, Daily, First dose (after last modification) on Mon10/22/23 at 0900, Reason for prescribing NPH: basal, Indications: Diabetes MellitusIndications:Diabetes Mellitus Given 10/22/2023 8:23 AM ACCOUNTING METHODS ANALYST 20 Units Left Upper Arm insulin NPH (HumuLIN N, NovoLIN N) 100 unit/mL injection 30 Units 30 Units, subcutaneous, Nightly, First dose on Mon10/19/23 at 2200, At 10 PM with PD at OR. Hold if no PD planned., Reason for prescribing NPH: peritoneal dialysis, Indications: Diabetes MellitusIndications:Diabetes Mellitus Given 10/20/2023 9:24 PM ACCOUNTING METHODS ANALYST 30 Units Left Outer Thigh Given 10/19/2023 11:00 PM ACCOUNTING METHODS ANALYST 30 Units L eft Lower Abdomen insulin [...] Diabetes MellitusIndications:Diabetes Mellitus Given 10/22/2023 11:57 PM ACCOUNTING METHODS ANALYST 40 Units Left Upper Arm Given 10/21/2023 9:35 PM ACCOUNTING METHODS ANALYST 40 Units Le ft Upper Arm INSULIN PUMP REFILL lispro (HumaLOG, ADMELOG) solution 300 Units 300 Units, other, Once, On 10/28/23 at 2115, For 1 dose, For refill into insulin pump reservoir ONLY. Not for direct administration to the patient. Pump Refill 10/28/2023 11:18 PM ACCOUNTING METHODS ANALYST 300 Units insulin regular bolus from bag 2-14 Units 2-14 Units, intravenous, Every 1 hour PRN, high blood sugar, Starting on Mon10/17/23 at 1329, Bolus as directed in insulin infusion orders., Indications: HyperglycemiaIndications:Hyperglyc emia Bolus from Bag 10/19/2023 5:05 AM ACCOUNTING METHODS ANALYST 2 Units Bolus from Bag 10/18/2023 6:08 AM ACCOUNTING METHODS ANALYST 2 Units insulin regular in 0.9% sodium [...] glucose is less than 75 mg/dL, call MD/EMPLOYEE DEVELOPMENT SPECIALIST 60 - 74 mg/dL: If previous BG [...] 300 mg/dL for 4 consecutive readings, call MD/EMPLOYEE DEVELOPMENT SPECIALIST for additional IV bolus orders. When new IV tubing is used, completely prime the tubing. Once primed, waste an additional 20 ml of insulin infusion using the IV pump prior to connecting to patient., RoutineIndications:Hyperglyc emia Rate/Dose Change 10/20/2023 2:00 AM ACCOUNTING METHODS ANALYST 2 Units/hr 2 mL/hr Rate/Dose Change 10/20/2023 12:00 AM ACCOUNTING METHODS ANALYST 1 Units/hr 1 mL/h r Rate/Dose Change 10/19/2023 10:00 PM ACCOUNTING METHODS ANALYST 1.5 Units/hr 1.5 mL/hr INSULIN SUBCUTANEOUS PUMP [...] Self Administered Via Pump 10/24/2023 5:31 PM ACCOUNTING METHODS ANALYST 8.15 Units Left Upper Arm Self Administered Via Pump 10/24/2023 12:43 PM ACCOUNTING METHODS ANALYST 0 Units Left Upper Arm Self Administered Via Pump 10/24/2023 8:12 AM ACCOUNTING METHODS ANALYST 13.4 Uni ts Left Upper Arm INSULIN [...] otherwise manipulate tablet/capsule. Given 10/16/2023 8:18 AM ACCOUNTING METHODS ANALYST 60 m g Given 10/15/2023 8:41 AM ACCOUNTING METHODS ANALYST 60 mg Given 10/14/2023 8:45 AM ACCOUNTING METHODS ANALYST 60 mg Lactated Ringer's (LR) bolus 500 mL 500 mL, intravenous, Once, On Gregoria 10/19/23 at 1400, For 1 dose New Bag 10/19/2023 2:55 PM ACCOUNTING METHODS ANALYST 500 mL 999 mL/hr levothyroxine (SYNTHROID) tablet [...] Indications: hypomagnesemiaIndications:hypomagnesemia New Bag 10/17/2023 8:15 PM ACCOUNTING METHODS ANALYST 2 g metoprolol tartrate (LOPRESSOR) immediate release split tablet 6.25 mg 6.25 mg, oral, Once, On Mon10/20/23 at 1100, For 1 dose Given 10/20/2023 10:29 AM ACCOUNTING METHODS ANALYST 6.25 mg metoprolol tartrate (LOPRESSOR) immediate release split tablet 6.25 mg 6.25 mg, oral, 2 times daily, First dose (after last reorder) on Mon10/20/23 at 2100 Given 10/22/2023 8:23 AM ACCOUNTING METHODS ANALYST 6.25 mg Given 10/21/2023 9:21 PM ACCOUNTING METHODS ANALYST 6.25 mg Given 10/21/2023 4:41 AM ACCOUNTING METHODS ANALYST 6.25 mg metoprolol tartrate (LOPRESSOR) immediate release [...] less than 60 Given 10/16/2023 12:23 PM ACCOUNTING METHODS ANALYST 25 mg metoprolol tartrate (LOPRESSOR) immediate release tablet 50 mg 50 mg, oral, Every 12 hours, First dose on 10/14/23 at 0130 Given 10/14/2023 2:59 PM ACCOUNTING METHODS ANALYST 50 mg Given 10/14/2023 2:17 AM ACCOUNTING METHODS ANALYST 50 mg NIFEdipine (PROCARDIA XL/ADALAT CC) extended release tablet 90 mg 90 mg, oral, Daily, First dose on 10/14/23 at 0900, Do not crush, chew, cut, dissolve, open or otherwise manipulate tablet/capsule. Given 10/16/2023 8:19 AM ACCOUNTING METHODS ANALYST 90 mg Given 10/15/2023 12:21 PM ACCOUNTING METHODS ANALYST 90 mg Given 10/14/2023 8:44 AM ACCOUNTING METHODS ANALYST 90 mg norepinephrine in dextrose 5% (LEVOPHED) [...] RoutineIndications:hypo tension Rate/Dose Verify 10/18/2023 10:00 AM ACCOUNTING METHODS ANALYST 0.01 mcg/kg/min 2.37 mL/hr Rate/Dose Change 10/18/2023 8:01 AM ACCOUNTING METHODS ANALYST 0.01 mcg/kg/min 2. 37 mL/hr Rate/Dose Change 10/18/2023 6:00 AM ACCOUNTING METHODS ANALYST 0.02 mcg/kg/min 4. 73 mL/hr ondansetron (ZOFRAN) injection 4 mg 4 mg, intravenous, Administer over 2 Minutes, Every 6 hours PRN, nausea, vomiting, Starting on Mon10/17/23 at 1324, Administer no sooner than 6 hours after last dose. , Indications: Nausea and VomitingIndications:Nausea and Vomiting Given 10/25/2023 9:13 AM ACCOUNTING METHODS ANALYST 4 mg Given 10/19/2023 5:21 PM ACCOUNTING METHODS ANALYST 4 mg Given 10/19/2023 10:48 AM ACCOUNTING METHODS ANALYST 4 mg oxyCODONE (ROXICODONE) tablet 2.5 mg 2.5 mg, oral, Once, On Mon10/20/23 at 0115, For 1 dose, Indications: PainIndications:Pain Given 10/20/2023 12:37 AM ACCOUNTING METHODS ANALYST 2.5 mg oxyCODONE (ROXICODONE) tablet 5 mg 5 mg, oral, Every 3 hours PRN, 1st line for pain, Starting on Mon10/17/23 at 1324, May repeat in 1 hour if pain is uncontrolled or increasing. Max 2 doses within 1 dosing interval. Given 10/18/2023 3:58 PM ACCOUNTING METHODS ANALYST 5 mg Given 10/18/2023 10:52 AM ACCOUNTING METHODS ANALYST 5 mg Given 10/18/2023 7:13 AM ACCOUNTING METHODS ANALYST [address] (PROTONIX) extended release tablet 40 mg 40 mg, oral, Daily, First dose on Mon10/14/23 at 0900, Do not crush, chew, cut, dissolve, open or otherwise manipulate tablet/capsule., Indications: Treatment of Non-Bleeding Gastric DisorderIndications:Treatment of Non-Bleeding Gastric Disorder Given 10/16/2023 8:19 AM ACCOUNTING METHODS ANALYST 40 mg Given 10/15/2023 8:41 AM ACCOUNTING METHODS ANALYST 40 mg Given 10/14/2023 8:44 AM ACCOUNTING METHODS ANALYST [address] (PROTONIX) extended release [...] 1726, Indications: constipationIndications:constipation Given 10/15/2023 8:49 AM ACCOUNTING METHODS ANALYST 17 g Given 10/14/2023 5:33 PM ACCOUNTING METHODS ANALYST 17 g polyethylene glycol (MIRALAX) packet 17 g 17 g, oral, Daily, First dose (after last modification) on Mon10/20/23 at 1045, Hold for diarrhea, Indications: constipationIndications:constipation Given 10/30/2023 8:15 AM CDT 17 g Given 10/29/2023 8:19 AM CDT 17 g Given 10/22/2023 8:13 AM ACCOUNTING METHODS ANALYST 17 g potassium chloride ER (KLOR-CON) extended [...] only, Routine Rate/Dose Verify 10/18/2023 6:00 AM ACCOUNTING METHODS ANALYST 25 mcg/kg/min 18.93 mL/hr Rate/Dose Verify 10/18/2023 5:00 AM ACCOUNTING METHODS ANALYST 25 mcg/kg/min 18.9 3 mL/hr Rate/Dose Verify 10/18/2023 4:00 AM ACCOUNTING METHODS ANALYST 25 mcg/kg/min 18.9 3 mL/hr protamine 50 mg in sodium chloride 0.9% 50 mL IVPB 50 mg, intravenous, at 110 mL/hr, Administer over 30 Minutes, Once, On Mon10/17/23 at 1730, For 1 dose, Rate not to exceed 50 mg over 10 minutes, Indications: Heparin ToxicityIndications:Heparin Toxicity New Bag 10/17/2023 5:15 PM ACCOUNTING METHODS ANALYST 50 m g 110 mL/hr ramelteon (ROZEREM) tablet 8 mg 8 mg, oral, Nightly PRN, sleep, Starting on Mon10/13/23 at 2332, Indications: Sleep-Onset InsomniaIndications:Sleep-Onset Insomnia Given 11/02/2023 8:24 PM CDT 8 mg Given 10/26/2023 10:57 PM ACCOUNTING METHODS ANALYST 8 mg Given 10/25/2023 9:05 PM ACCOUNTING METHODS ANALYST 8 mg ranolazine ER (RANEXA) extended release tablet 500 mg 500 mg, oral, 2 times daily, First dose on Mon10/14/23 at 0130 Given 10/16/2023 9:42 PM ACCOUNTING METHODS ANALYST 500 mg Given 10/16/2023 8:18 AM ACCOUNTING METHODS ANALYST 500 mg Given 10/15/2023 8:41 AM ACCOUNTING METHODS ANALYST 500 mg scopolamine patch 72 hour 1 patch 1 patch, transdermal, Administer over 72 Hours, Once, On Mon10/18/23 at 1945, For 1 dose Medication Applied 10/18/2023 7:28 PM ACCOUNTING METHODS ANALYST 1 patch Behind Right Ear senna (SENOKOT) [...] 1 dose New Bag 10/14/2023 2:54 AM ACCOUNTING METHODS ANALYST 500 mL sodium chloride 0.9% flush 0.5-20 mL 0.5-20 mL, intra-catheter, Every 8 hours scheduled, First dose on Mon10/14/23 at 0015, Flush volume based on line type and size. Given 10/22/2023 9:19 PM ACCOUNTING METHODS ANALYST 10 mL Given 10/22/2023 6:36 PM ACCOUNTING METHODS ANALYST 10 mL Given 10/22/2023 8:15 AM ACCOUNTING METHODS ANALYST 10 mL sodium chloride 0.9% flush 0.5-20 [...] CDT 10 mL Given 10/28/2023 12:40 AM ACCOUNTING METHODS ANALYST 20 mL Given 10/25/2023 9:14 AM ACCOUNTING METHODS ANALYST 10 mL sodium chloride 0.9% infusion 50 mL/hr, intravenous, Continuous, Starting on Mon10/17/23 at 0015, Pre-Op/Floor, Start at midnight the day of surgery. New Bag 10/17/2023 12:45 AM ACCOUNTING METHODS ANALYST 50 mL/hr 50 mL/hr sodium chloride 0.9% infusion 10 mL/hr, intravenous, Continuous, Starting on Mon10/17/23 at 1400 New Bag 10/17/2023 2:37 PM ACCOUNTING METHODS ANALYST 10 mL/hr 10 mL/hr sodium chloride 0.9% IVPB 0-250 mL 0-250 mL, intravenous, Once, On Mon10/17/23 at 1615, For 1 dose, Prime blood tubing and administer amount needed to clear line (usually 50-100 mL) after transfusion complete. New Bag 10/17/2023 4:35 PM ACCOUNTING METHODS ANALYST 250 mL sodium chloride 0.9% IVPB 0-250 mL 0-250 mL, intravenous, Once, On Mon10/17/23 at 1615, For 1 dose, Prime blood tubing and administer amount needed to clear line (usually 50-100 mL) after transfusion complete. New Bag 10/17/2023 4:34 PM ACCOUNTING METHODS ANALYST 250 mL sodium chloride 0.9% IVPB 0-250 mL 0-250 mL, intravenous, Once, On Mon10/17/23 at 1745, For 1 dose, Prime blood tubing and administer amount needed to clear line (usually 50-100 mL) after transfusion complete. New Bag 10/17/2023 6:27 PM ACCOUNTING METHODS ANALYST 250 mL sodium chloride 0.9% IVPB 0-250 mL 0-250 mL, intravenous, Once, On Mon10/17/23 at 1915, For 1 dose, Prime blood tubing and administer amount needed to clear line (usually 50-100 mL) after transfusion complete. New Bag 10/17/2023 8:00 PM ACCOUNTING METHODS ANALYST 50 mL sodium chloride tablet 1 g 1 g, oral, 3 times daily with meals, First dose on Mon10/27/23 at 1030, Each 1 gram tablet contains 17 mEq of sodium., On hold since Mon10/29/2023 at 1130 until manually unheld Given 10/29/2023 8:18 AM CDT 1 g Given 10/28/2023 5:24 PM ACCOUNTING METHODS ANALYST 1 g Given 10/28/2023 12:46 PM ACCOUNTING METHODS ANALYST 1 g sodium chloride tablet 1 g [...] Mon10/14/23 at 1615 Given 10/16/2023 8:19 AM ACCOUNTING METHODS ANALYST 100 mg Given 10/15/2023 8:41 AM ACCOUNTING METHODS ANALYST 100 mg Given 10/14/2023 4:40 PM ACCOUNTING METHODS ANALYST 100 mg torsemide (DEMADEX) tablet 100 mg 100 mg, oral, Daily, First dose on Mon10/19/23 at 0930 Given 10/21/2023 8:37 AM ACCOUNTING METHODS ANALYST 100 mg Given 10/20/2023 9:39 AM ACCOUNTING METHODS ANALYST 100 mg Given 10/19/2023 11:05 AM ACCOUNTING METHODS ANALYST 100 mg torsemide (DEMADEX) tablet 100 mg [...] For 1 dose Given 10/20/2023 11:08 PM ACCOUNTING METHODS ANALYST 50 mg traMADoL (ULTRAM) tablet 50 mg 50 mg, oral, Once, On Mon10/24/23 at 0000, For 1 dose Given 10/23/2023 11:32 PM ACCOUNTING METHODS ANALYST 50 mg traMADoL (ULTRAM) tablet 50 mg 50 mg, oral, Every 8 hours PRN, 1st line for pain, Starting on Mon10/24/23 at 0741 Given 10/27/2023 6:04 AM ACCOUNTING METHODS ANALYST 50 mg Given 10/26/2023 10:57 PM ACCOUNTING METHODS ANALYST 50 mg Given 10/26/2023 1:32 PM ACCOUNTING METHODS ANALYST 50 mg vancomycin 1500 mg/250 mL in [...] 100-120, Routine Rate/Dose Verify 10/18/2023 8:00 AM ACCOUNTING METHODS ANALYST 0.04 Units/min 12 mL/hr Rate/Dose Verify 10/18/2023 6:00 AM ACCOUNTING METHODS ANALYST 0.04 Units/min 12 mL/hr Rate/Dose Verify 10/18/2023 5:00 AM ACCOUNTING METHODS ANALYST 0.04 Units/min 12 mL/hr vasopressin in 5% dextrose (VASOSTRICT) 20 unit/100 mL (0.2 unit/mL) infusion 0.04 Units/min (12 mL/hr), 0.2 Units/mL, intravenous, Titrated, Starting on Mon10/18/23 at 0915, Until Mon10/18/23 at 1204, Initial rate: Do not titrate, Routine Rate/Dose Verify 10/18/2023 10:00 AM ACCOUNTING METHODS ANALYST 0.04 Units/min 12 mL/hr Rate/Dose Verify 10/18/2023 8:58 AM ACCOUNTING METHODS ANALYST 0.04 Units/min 12 mL/hr vasopressin in 5% dextrose (VASOSTRICT) 20 unit/100 mL (0.2 unit/mL) infusion 0-0.04 Units/min (0-12 mL/hr), 0.2 Units/mL, intravenous, Titrated, Starting on Mon10/18/23 at 1245, Until Gregoria 10/19/23 at 0541, Initial rate: 0.04 units/min, Titrate: Up/Down, Titrate by: 0.01 units/min, Every: 5 minutes, Goal: SBP, SBP Goal: 110-130 mmHg, Routine Rate/Dose Change 10/18/2023 1:20 PM ACCOUNTING METHODS ANALYST 0.01 Units/min 3 mL/hr Rate/Dose Change 10/18/2023 12:30 PM ACCOUNTING METHODS ANALYST 0.02 Units/min 6 mL/hr New Bag 10/18/2023 12:15 PM ACCOUNTING METHODS ANALYST 0.03 Units/min 9 mL/hr warfarin (COUMADIN) tablet 0.5 mg 0.5 mg, oral, Once (for warfarin), On Mon10/20/23 at 1800, For 1 dose, Target INR: 2 - 2.5, Indications: Mechanical Valve Thromboembolism ProphylaxisIndications:Mechanical Valve Thromboembolism Prophylaxis Given 10/20/2023 5:25 PM ACCOUNTING METHODS ANALYST 0.5 mg warfarin (COUMADIN) tablet 1 mg 1 mg, oral, Once (for warfarin), On Mon10/28/23 at 1800, For 1 dose, Target INR: 2 - 2.5, Indications: Mechanical Valve Thromboembolism ProphylaxisIndications:Mechanical Valve Thromboembolism Prophylaxis Given 10/28/2023 5:24 PM ACCOUNTING METHODS ANALYST 1 mg warfarin (COUMADIN) tablet 1.5 mg 1.5 mg, oral, Once (for warfarin), On Mon10/23/23 at 1800, For 1 dose, Target INR: 2 - 2.5, Indications: Mechanical Valve Thromboembolism ProphylaxisIndications:Mechanical Valve Thromboembolism Prophylaxis Given 10/23/2023 5:10 PM ACCOUNTING METHODS ANALYST 1.5 mg warfarin (COUMADIN) tablet 1.5 mg 1.5 mg, oral, Once (for warfarin), On Mon10/24/23 at 1800, For 1 dose, Target INR: 2 - 2.5, Indications: Mechanical Valve Thromboembolism ProphylaxisIndications:Mechanical Valve Thromboembolism Prophylaxis Given 10/24/2023 5:48 PM ACCOUNTING METHODS ANALYST 1.5 mg warfarin (COUMADIN) tablet 1.5 mg 1.5 mg, oral, Once (for warfarin), On Mon10/25/23 at 1800, For 1 dose, Target INR: 2 - 2.5, Indications: Mechanical Valve Thromboembolism ProphylaxisIndications:Mechanical Valve Thromboembolism Prophylaxis Given 10/25/2023 5:36 PM ACCOUNTING METHODS ANALYST 1.5 mg warfarin (COUMADIN) tablet 1.5 mg 1.5 mg, oral, Once (for warfarin), On Mon10/27/23 at 1800, For 1 dose, Target INR: 2 - 2.5, Indications: Mechanical Valve Thromboembolism ProphylaxisIndications:Mechanical Valve Thromboembolism Prophylaxis Given 10/27/2023 5:49 PM ACCOUNTING METHODS ANALYST 1.5 mg warfarin (COUMADIN) tablet 2 mg [...] Valve Thromboembolism Prophylaxis Given 10/18/2023 6:13 PM ACCOUNTING METHODS ANALYST 3 mg warfarin (COUMADIN) tablet 3 mg 3 mg, oral, Once (for warfarin), On Gregoria 10/19/23 at 1800, For 1 dose, Target INR: 2 - 2.5, Indications: Mechanical Valve Thromboembolism ProphylaxisIndications:Mechanical Valve Thromboembolism Prophylaxis Given 10/19/2023 5:21 PM ACCOUNTING METHODS ANALYST 3 mg warfarin (COUMADIN) tablet 3 mg 3 mg, oral, Once (for warfarin), On Gregoria 10/26/23 at 1800, For 1 dose, Target INR: 2 - 2.5, Indications: Mechanical Valve Thromboembolism ProphylaxisIndications:Mechanical Valve Thromboembolism Prophylaxis Given 10/26/2023 6:03 PM ACCOUNTING METHODS ANALYST 3 mg warfarin (COUMADIN) tablet 4 mg [...] 11/02/2023 11/03/2023 al & mag hydroxide simethicone-diphenhydrami sc-nojlehfjy-mdfkutkt (MAGIC MOUTHWASH) oral suspension 1-1-1-1 20 mL [...] Jessica Rodriguez RN)1310 (Given - Provider: Jessica Rodirguez RN)2023 (Given - Provider: Abelardo Brar, LUAN) [...] 2200, At 10 PM with PD at OR. Hold if no PD planned., Reason for [...] Brar, LUAN) 08 (Given - Provider: Jessica Rordiguez, LUAN) pantoprazole DR (PROTONIX) extended release tablet [...] Abelardo Brar, LUAN) 0838 (Given - Provider: Jessiac Rodriguez RN) sodium chloride 0.9% flush 0.5-20 [...] Provider: Jessica Rodrgiuez RN - Comment: [phone] (Self Administered [...] Call MD for each episode of hypoglycemia. 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-15 CONTAINS GLUCOSE 40% W/W (50% [...] Call MD for each episode of hypoglycemia. 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-15 CONTAINS GLUCOSE 40% W/W (50% [...] TO ENDOCRINOLOGY 1 10/18/2023 IP CONSULT TO HUMANITIES AND LANGUAGES PROFESSOR 1 IP CONSULT TO CARDIOLOGY 1 10/14/2023 [...] 11/03/2023 documented in this encounter Care Teams Assembler Molded Frames Relationship Specialty Start Date End Date Aditya Correa MD [address] [facility] [place]PT [place] [address] PCP - General 10/17/19 documented as of this encounter
--- OUTSIDE RECORDS SUMMARY | 2024-09-07 19:18 | XMS_ITS | Encounter Summary ---
Author Organization [facility] Healthcare Address [address] [place] [address] Care Team Providers Care Graphics Coordinator Name Role Phone Aditya Castro MD Primary Care Provider [phone] Encounter Details Date Type Department Care Team (Late st Contact Info) Description 10/13/2023 Orders Only [facility] [address] [place] [id number] Julio Lopez DO [facility] [place] [address] Social History Tobacco Use Types Packs/Day Years Used Date Smoking Tobacco: Never Smokeless Tobacco: Former Alcohol Use Standard Drinks/Week Comments No 0 (1 standard drink = 0.6 oz pur e alcohol) [facility] Utilities Answer Date Recorded In the past 12 months has [employer] gas, oil, or water [employer] threatened to shut off services in your [...] week 10/16/2023 How often do you attend [facility] or spiritism services? 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
--- OUTSIDE RECORDS SUMMARY | 2024-09-07 19:18 | XMS_ITS | Encounter Summary ---
Author Organization [facility] Healthcare Address [address] [place] [address] Care Team Providers Care Order Management Specialist Name Role Phone Aditya Castro MD Primary Care Provider [phone] Encounter Details Date Type Department Care Team (Late st Contact Info) Description 07/28/2023 Orders Only [facility] Medical Group Cardiology [address] [facility] [address] [facility] [address] [place] [address] Cyndi Nielson MD [address] [facility] [address] [place] [address] Social History Tobacco Use Types [...] file 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 Gender Identity Not on file Sexual Orientation Not on file documented as of this encounter Plan of Treatment Not on file documented as of this encounter Procedures Procedure Name Priority Date/Time Associated Diagnosis Comments CARDIOLOGY DOCUMENT SCAN Routine 023 10:15 AM BANQUET COORDINATOR documented in this encounter Results * Cardiology Document Scan (07/26/2023 10:15 AM BANQUET COORDINATOR) Anatomical Region Laterality Modality Other us Cyndi Nielson MD CV CARDIAC SERVICES PROCEDU RES Final Result documented in this encounter Visit Diagnoses Not on filedocumented in this encounter Care Teams Order Management Specialist Relationship Specialty Start Date End Date Aditya Castro MD [address] [facility] DEPT [place] [address] PCP - General 10/17/19 documented as of this encounter
--- OUTSIDE RECORDS SUMMARY | 2024-09-07 19:18 | XMS_ITS | Encounter Summary ---
Author Organization [facility] Healthcare Address [address] [place] [address] Care Team Providers Care Forge Shop Supervisor Name Role Phone Aditya Correa MD Primary Care Provider [phone] Reason for Visit * Auth/Cert Specialty Diagnoses / Procedures Referred By Aguilar t Referred To Contact Diagnoses CAD in tangirnaq artery Needs CABG (12 or 1300) Procedures N Referral ID Status Reason Start Date Expiration Date Visits Re quested Visits Authorized [id number] 1 1 Encounter Details Date Type Department Care Team (Late st Contact Info) Description 10/17/2023 8:00 AM SPRAY MIXER - 10/17/2023 12:50 PM SPRAY MIXER Surgery [facility] Operating Room [address] [place] [address] Jaqueline Valero MD [address] [facility] [address] [place] [address] CORONARY ARTERY BYPASS GRAFT, AORTIC VALVE REPLACEMENT Surgery Details Date/Time Status Location OR Service Patient Class Case Class Case Type Trauma Case? 10/17/2023 8:00 AM Posted [facility] OPERATING [facility]OM OR Cardiothoracic Inpatient Elective Panel [...] = 0.6 oz pur e alcohol) [facility] Utilities Answer Date [...] on file Legal Sex Male 3:42 AM SPRAY MIXER Gender Identity Not on file Sexual Orientation Not on file documented as of this encounter Last Filed Vital Signs Vital Sign Reading Time Taken Comments Blood Pressure 118/59 10/17/2023 7:16 AM SPRAY MIXER Pulse 60 10/17/2023 7:22 AM SPRAY MIXER Temperature 36.8 ??C (98.2 ??F) 10/17/2023 1 2:15 AM SPRAY MIXER Respiratory Rate 12 10/17/2023 7:16 AM SPRAY MIXER Oxygen Saturation 96% 10/17/2023 7:16 AM SPRAY MIXER Inhaled Oxygen Concentration - - Weight 126.2 kg (278 lb 3.5 oz) 10/16/2023 9:00 AM SPRAY MIXER Height 177.8 cm (5' 10 ) 10/13/2023 11: 22 PM SPRAY MIXER Body Mass Index 39.48 10/17/2023 12:52 PM SPRAY MIXER documented in this encounter Discharge Summaries * [...] 53-year-old male who has been transferred to [facility] for consideration of coronary artery bypass grafting and aortic valve replacement. His past medical history includes severe CAD with previous PCI, paroxysmal atrial fibrillation, type 1 diabetes mellitus, ESRD on peritoneal dialysis, hypertension, hyperlipidemia, and sleep apnea. He presented to [facility] in [place], [place] on 10/09/23 complaining of fatigue, malaise, [...] the catheterization. He has been transferred to [facility] for consideration of coronary artery bypass and [...] PUMP: Continue Omnipod 5 insulin pump with Brandcast G6 CGM at home settings: TIME BASAL RATE TOTAL BASAL DAILY DOSE: 65.85 0330 1.7 units/hour 0800 0.8 units/hour 2000 5.8 units/hour Commonly known as: HumaLOG, ADMELOG levothyroxine 25 mcg tablet Take 1 tablet (25 mcg total) by mouth tube sizer and cutter operator before breakfast Commonly known as: SYNTHROID [...] REDNESS OR DRAINAGE OF INCISIONS OR FEVERS [phone] Diet Instructions Adult Discharge Diet Diet Type: Restrict salt intake to less than 4000 mg per day Low fat intake Diabetic renal diet. Heart healthy diet. Limit foods high in Vitamin K while taking Coumadin. High protein intake. Other Instructions Ambulatory referral to Home Health Service Line: Home Health Primary disciplines requested: [facility]: Disease and Medication Management [...] Center 11/22/2023 9:30 AM Jaqueline Valero MD [facility] [id number] PSA Contact Information for Follow-ups [facility] Home Care Services Specialty: Home Health and Hospice [address] [facility] [address] Next Steps: Follow up Questions: Service Line: Home Health Primary disciplines requested: [facility]: Disease and Medication Management [...] Family Medicine Relationship: PCP - General [address] [facility] [id number] Next Steps: Follow up Comments: Follow up with established provider: 4 weeks Questions: To provider: ADITYA CORREA [facility] [address] [place] [phone] Next Steps: Follow up Comments: Dr. Valero is patient's Cardiothoracic Surgeon and will not be managing patient during Cardiac Rehab. Please contact patient's established Commercial Interior Designer, Dr. Hamlet Ortega, for additional information. Questions: Please select the performing region: External Order To loc/pos: [facility] Inpatient POS Select a phase: Phase 2 # of visits: 1 Referral Status: External - Ready to Schedule Cosigned by Jaqueline Valero MD at 11/04/2023 2:05 PM CDT documented in this encounter Discharge Instructions * Discharge Instr - Diet* Carly Spencer RD - 10/20/2023 3:29 PM SPRAY MIXER Diabetic renal diet. Heart healthy diet. Limit foods high in Vitamin K while taking Coumadin. High protein intake. Y MIXER Y MIXER * Attachments The following attachments cannot be sent through Care Everywhere. * CABG (Coronary Artery Bypass Graft) (Discharge Care) ([place]) * Transcatheter Aortic Valve Replacement (Discharge Care) ([place]) * Sternal Precautions ([facility]) ([place]) * Warfarin (By mouth) ([place]) documented in this encounter Medications at Time [...] 1 tablet (25 mcg total) by mouth tube sizer and cutter operator before breakfast 30 tablet 1 11/04/2023 [...] (20 mg total) by mouth daily peg 690-cqqnaphzoqmw-vry cerin (ARTIFICAL TEARS) 1-0.2-0.2 % ophthalmic solution [...] 1 tablet (25 mcg total) by mouth tube sizer and cutter operator before breakfast 30 tablet 1 11/04/2023 [...] 53 y.o. male. Admit Dx: CAD in tangirnaq artery [I25.10]. Admitted on 10/13/2023. Patient's intake is adequate. Objective Dietary Orders (From admission, onward) Start Ordered 10/26/23 1235 Adult Diet Restricted; Consistent Carbohydrate; Renal; 1000mL = Diet 700/Nursing 300 Diet effective now Question Answer Comment ([facility]) Diet type Restricted Diabetic: Consistent Carbohydrate Renal: [...] Review: Scheduled Meds: al & mag hydroxide jefmlxwrzlo-vlrusgtehwjckox-epnbahxuc-nystatin, 20 mL, swish & swallow, Q6H amiodarone, [...] of Weight Used for Estimated Protein : [place] Protein Needs Based on g/k.4 Total Protein Estimated Needs (gm): 105.42 Kcal/kg Type of Weight Used for Estimated Kcals: [place] Kcal/k Total Kcal/kg Estimated Needs : 2259 [...] consistent carbohydrate and renal diet. Plan: Added steno pool supervisor check to pt's diet to help [...] ESRD on peritoneal dialysis initially presented to [facility] in [facility] on October 09 for symptoms of general [...] regimen of PD Follow-up with his primary television servicer Fernandez Carranza MD [facility]: MD Chula Domínguez, MD Renny Flood PA Derek Larson, MD FASN Rose Mattli, NP Rohan Devanpalli, MD Candace Shirley, ROBERTO [address] [place], [place] [address] [phone] - Office [phone] - Fax * Nusrat Us [facility] - 11/03/2023 11:05 AM CDT Warfarin monitoring [...] 7.6 monitor for now Joselin Strickland MD [facility] SUBJECTIVE: Mr. Garvin is doing well [...] Dose Route Frequency al & mag hydroxide imorgwvnlbu-nrafcisusgcaqiq-vpgeuvpxi-nystatin (MAGIC MOUTHWASH) oral suspension 1-1-1-1 20 mL [...] sternotomy healing well ASSESSMENT/PLAN: CAD - prior GA with multiple PCI - [facility] showed multivessel disease - LVEF dropped [...] cellulitis. -venous doppler shows no DVT SHAMIKA oDnald [facility] 11/03/2023 10:59 AM * [...] yesterday Levothyroxine 25 mcg started per Endocrine [place] prn for pain control CPAP nightly Stress ulcer prophylaxis: Protonix DVT prophylaxis: coumadin dosing PT/OT Plan reviewed with LESLY Vallecillo 11/02/2023 * Nida Starr, OLIVE KNOCKER - 11/02/2023 2:54 PM CDT Physical Therapy [...] Comments Incentive spirometer x 10 reps fom [phone] Transfer 1 Transfer From 1 Sit;Chair with [...] (from Physical Therapy) Active Problems Problem: PT [facility] Start Date: 10/21/23 Goal Start Date Expected End Date End Date PT LTG - [facility] 1 10/21/23 11/04/23 -- Goal Details: Patient will perform supine<>sit Independent. Goal Start Date Expected End Date End Date PT [facility] - [facility] 2 10/21/23 11/04/23 -- Goal Details: Patient will perform bed<>chair transfer Modified Independent with ww. Goal Start Date Expected End Date End Date PT [facility] - [facility] 3 10/21/23 11/04/23 -- Goal Details: Patient will ambulate 350 feet Modified Independent with wheeled walker. Goal Start Date Expected End Date End Date PT [facility] - [facility] 4 10/21/23 11/04/23 -- Goal Details: Patient [...] ESRD on peritoneal dialysis initially presented to [facility] in [facility] on October 09 for symptoms of general [...] free T4, synthroid started Fernandez Carranza MD [facility]: MD Chula Domínguez, MD Renny Flood, MD STANISLAV Camacho, MD Shanda Pederson NP [address] [place], [place] [address] [phone] - Office [phone] - Fax * Pradeep Reeves NP - [...] Dose Route Frequency al & mag hydroxide vgjbvkiiqri-gzgoyhefbwiulgg-ogkyjnwiz-nystatin (MAGIC MOUTHWASH) oral suspension 1-1-1-1 20 mL [...] sternotomy healing well ASSESSMENT/PLAN: CAD - prior GA with multiple PCI - [facility] showed multivessel disease - LVEF dropped [...] -venous doppler shows no DVT SHAMIKA Donald [facility] 11/02/2023 12:53 PM * [...] and Vancomycin for left lower extremity cellulitis [place] prn for pain control CPAP nightly Stress [...] ESRD on peritoneal dialysis initially presented to [facility] in [facility] on October 09 for symptoms of general [...] a cardiology consultation which lead to a [facility]. Results were notable for severe CAD [...] free T4, synthroid started Fernandez Carranza MD [facility]: MD Chula Domínguez, MD Renny Flood PA Derek Larson, MD FASN Rose Mattli, NP Rohan Devanpalli, MD Candace Shirley, ROBERTO [address] [place] [address] [phone] - Office [phone] - Fax * Sophia Peoples COTA - [...] permanent denture broke after biting into an luxembourgish muffin. Incisional pain is well controlled. OBJECTIVE: [...] Dose Route Frequency al & mag hydroxide fjdciybupur-klnneakrpohpnox-fuzurpumw-nystatin (MAGIC MOUTHWASH) oral suspension 1-1-1-1 20 mL [...] sternotomy healing well ASSESSMENT/PLAN: CAD - prior GA with multiple PCI - [facility] showed multivessel disease - LVEF dropped [...] -venous doppler shows no DVT SHAMIKA Donald [facility] 11/01/2023 10:22 AM Agree with above note Feels better No chest pain BP stable S/P CABG, AVR ONX Om heparin and warfarin In sinus rhythm On antibiotics for cellulitis Patrick Almonte MD, FACC * Nusrat Us [facility] - 11/01/2023 9:40 AM CDT Warfarin monitoring [...] add Vancomycin for left lower extremity cellulitis [place] prn for pain control CPAP nightly Encouraged [...] ESRD on peritoneal dialysis initially presented to [facility] in [facility] on October 09 for symptoms of general [...] free T4, synthroid started Fernandez Carranza MD [facility]: MD Chula Domínguez PA Graeme Mindel, MD Justin Krafft, PA Derek Larson, MD FASN Rose Mattli, NP Rohan Devanpalli, MD Candace Shirley, NP [address] [place], [place] [address] [phone] - Office [phone] - Fax * Nida Starr, LUIS - [...] Date Expected End Date End Date PT [facility] 1 10/21/23 11/04/23 -- Goal Details: Patient will perform supine<>sit Independent. Goal Start Date Expected End Date End Date PT [facility] 2 10/21/23 11/04/23 -- Goal Details: Patient will perform bed<>chair transfer Modified Independent with ww. Goal Start Date Expected End Date End Date PT [facility] 3 10/21/23 11/04/23 -- Goal Details: Patient will ambulate 350 feet Modified Independent with wheeled walker. Goal Start Date Expected End Date End Date PT [facility] 4 10/21/23 11/04/23 -- Goal Details: Patient will ambulate up/down 1 step Modified Independent as needed to enter and exithome. Cosigned by Kamryn Mendez, PT at 10/31/2023 2:01 PM CDT * Nusrat Us [facility] - 10/31/2023 10:02 AM CDT Warfarin monitoring [...] Dose Route Frequency al & mag hydroxide ynzgdlspogt-iadzgxmynzaovsc-krsnljioq-nystatin (MAGIC MOUTHWASH) oral suspension 1-1-1-1 20 mL [...] sternotomy healing well ASSESSMENT/PLAN: CAD - prior GA with multiple PCI - [facility] showed multivessel disease - LVEF dropped [...] doppler shows no DVT Emiliana Dickson NP [facility] 10/31/2023 8:40 AM * [...] -- Will monitor daily Tim Richard PharmD [facility] Clinical Pharmacist Specialist 10/31/23 7:50 [...] 1 View - Portable - in AM [[id number]] Collected: 10/26/2340 Order Status: Completed Updated: 10/26/23742 [...] Continue Ancef for left lower extremity cellulitis [place] prn for pain control CPAP nightly Encouraged incentive spirometer use and increased activity Stress ulcer prophylaxis: Protonix DVT prophylaxis: INR therapeutic PT/OT: Inpatient rehab denied by insurance, will explore alternative options Plan reviewed with LESLY Larose 10/30/2023 * Nida Starr, OLIVE KNOCKER - 10/30/2023 11:37 AM CDT Physical Therapy [...] Date Expected End Date End Date PT [facility] - [facility] 1 10/21/23 11/04/23 -- Goal Details: Patient will perform supine<>sit Independent. Goal Start Date Expected End Date End Date PT [facility] - [facility] 2 10/21/23 11/04/23 -- Goal Details: Patient will perform bed<>chair transfer Modified Independent with ww. Goal Start Date Expected End Date End Date PT [facility] - [facility] 3 10/21/23 11/04/23 -- Goal Details: Patient will ambulate 350 feet Modified Independent with wheeled walker. Goal Start Date Expected End Date End Date PT [facility] - [facility] 4 10/21/23 11/04/23 -- Goal Details: Patient [...] ESRD on peritoneal dialysis initially presented to [facility] in [facility] on October 09 for symptoms of general [...] free T4, synthroid started Fernandez Carranza MD [facility]: MD Chula Domínguez, MD Renny Flood PA Derek Larson, MD FASN Rose Mattli, MD Shanda Pederson, ROBERTO [address] [place] [address] [phone] - Office [phone] - Fax * Joselin Strickland MD - [...] any further issues overnight Joselin Strickland MD [facility] SUBJECTIVE: Mr. Garvin is sitting up [...] Dose Route Frequency al & mag hydroxide dxmczvllsqb-dnfkngchdgafenh-vrnhbwhjd-nystatin (MAGIC MOUTHWASH) oral suspension 1-1-1-1 20 mL [...] sternotomy healing well ASSESSMENT/PLAN: CAD - prior GA with multiple PCI - [facility] showed multivessel [...] cellulitis. -venous doppler pending Emiliana Dickson NP [facility] 10/30/2023 8:17 AM * [...] ESRD on peritoneal dialysis initially presented to [facility] in [facility] on October 09 for symptoms of general [...] D/W nursing and Dr. Thao Walker MD [facility]: Ron R. [place], MD ChulaLESLY Queen MD Justin Krafft, PA Derek Larson, MD FASN Rose Mattli, NP Rohan Devanpalli, MD Candace Shirley, NP [address] [place], [place] [address] [phone] - Office [phone] - Fax * Manda Schaffer NP - [...] Dose Route Frequency al & mag hydroxide smbcpmxlaik-oegfadtbxbzjdiw-qrdxgoghc-nystatin (MAGIC MOUTHWASH) oral suspension 1-1-1-1 20 mL [...] sternotomy healing well ASSESSMENT/PLAN: CAD - prior GA with multiple PCI - [facility] showed multivessel [...] LLE -venous doppler pending Manda Schaffer NP [facility] 10/29/2023 9:35 AM Cosigned [...] discharge Plan reviewed with LESLY Mack 10/28/2023 Y MIXER * Sophia Peoples COTA - 10/28/2023 2:17 [...] Hills OT at 10/30/2023 1:30 PM CDT Y MIXER * Adam Walker MD - 10/28/2023 1:22 PM CST Images from the original note were not included. Nephrology Juvenal Garvin Jr. - 1970 Primary : Aditya Correa MD History and interval events: 53-year-old gentleman with history of type 1 diabetes mellitus on insulin pump, CHF, CAD, ESRD on peritoneal dialysis initially presented to [facility] in [facility] on October 09 for symptoms of general [...] T4, consider thyroid supplementation? Adam Walker MD [facility]: MD Chula Domínguez, MD Renny Flood PA Derek Larson, MD FASN Rose Mattli, NP Rohan Devanpalli, MD Candace Shirley, ROBERTO [address] [place] [address] [phone] - Office [phone] - Fax Y MIXER * Manda Schaffer NP - 10/28/2023 8:01 [...] Dose Route Frequency al & mag hydroxide crtsrnmcffu-datltlnvluclnbf-celdkobkr-nystatin (MAGIC MOUTHWASH) oral suspension 1-1-1-1 20 mL [...] sternotomy healing well ASSESSMENT/PLAN: CAD - prior GA with multiple PCI - C showed multivessel [...] management per primary/nephrology team Manda Schaffer, ROBERTO [facility] 10/28/2023 8:02 AM Cosigned by Ramirez Newberry MD at 10/28/2023 1:08 PM SPRAY MIXER Y MIXER Y MIXER * Yolanda Campos PA - 10/27/2023 6:58 [...] Intake/Output Summary (Last 24 hours) at 10/27/2023 9679 Last data filed at 10/27/2023 0850 Gross [...] discharge Plan reviewed with LESLY Pantoja 10/27/2023 Y MIXER * Taylor Jorge, GAVIN - 10/27/2023 2:33 PM CST Nutrition Follow-up Progress Note Encounter Date: 10/27/23 2:33 PM Nutrition Progress Summary: Patient is a 53 y.o. male. Admit Dx: CAD in tangirnaq artery [I25.10]. Admitted on 10/13/2023. Patient's intake is adequate. Objective Dietary Orders (From admission, onward) Start Ordered 10/26/23 1235 Adult Diet Restricted; Consistent Carbohydrate; Renal; 1000mL = Diet 700/Nursing 300 Diet effective now Question Answer Comment ([facility]) Diet type Restricted Diabetic: Consistent Carbohydrate Renal: [...] Review: Scheduled Meds: al & mag hydroxide lfqtkgaqwdu-zuaauvnjovplbmw-mxgjjizpu-nystatin, 20 mL, swish & swallow, Q6H amiodarone, [...] of Weight Used for Estimated Protein : [place] Protein Needs Based on g/k.4 Total Protein Estimated Needs (gm): 105.42 Kcal/kg Type of Weight Used for Estimated Kcals: [place] Kcal/k Total Kcal/kg Estimated Needs : 2259 [...] High protein intake. Taylor Jorge RD, LD Y MIXER * Sophia Peoples COTA - 10/27/2023 1:25 [...] Suzie Aiken OT at 10/27/2023 2:23 PM SPRAY MIXER Y MIXER Y MIXER * Joselin Strickland MD - 10/27/2023 12:02 [...] oral Q6H PRN al & mag hydroxide fwcyppiohwc-vtohacjkgtmoygb-crmqqvjqd-nystatin (MAGIC MOUTHWASH) oral suspension 1-1-1-1 20 mL [...] Rate: 100 bpm RR Interval: 599 msec IA Interval: 0 msec QRS Duration: 145 msec QT Interval: 394 msec QTC Interval: 451 msec P-R-T [place]: 0 - -9 - 132 degrees IMPRESSION: NORMAL SINUS RHYTHM [REASON: NORMAL P AXIS, IA, RATE \T\ RHYTHM] LEFT BUNDLE BRANCH BLOCK OCCASIONAL PVC Electronically Signed By: Jseus Huerta MD ASSESSMENT/PLAN: CAD - prior GA with multiple PCI - LHC showed multivessel [...] management per primary/nephrology team Joselin Strickland MD, [facility] [phone] [facility] 10/27/2023 12:02 PM Y MIXER * Fernandez Carranza MD - 10/27/2023 9:44 AM CST Images from the original note were not included. Nephrology Juvenal Garvin Jr. - 1970 Primary : Aditya Correa MD History and interval events: 53-year-old gentleman with history of type 1 diabetes mellitus on insulin pump, CHF, CAD, ESRD on peritoneal dialysis initially presented to [facility] in [facility] on October 09 for symptoms of general [...] will see this weekend Fernandez Carranza MD [facility]: MD Chula Domínguez PA Graeme Mindel, MD Justin Krafft, PA Derek Larson, MD FASN Rose Mattli, NP Rohan Devanpalli, MD Candace Shirley, NP [address] [place], [place] [address] [phone] - Office [phone] - Fax Y MIXER Y MIXER * Guerline Rodriguez PA - 10/26/2023 4:12 [...] 1 View - Portable - in AM [[id number]] Collected: 10/26/23739 Order Status: Completed Updated: 10/26/23742 [...] discharge Plan reviewed with LESLY Larose 10/26/2023 Y MIXER * Pradeep Reeves NP - 10/26/2023 2:16 PM CST Cardiology Daily Progress - [facility] [address] SUBJECTIVE: Mr. Garvin is lying in bed. He complains of incisional pain. Breathing is okay. Edema present. Review of Systems: Review of systems per HPI and otherwise all other systems are negative OBJECTIVE: Scheduled Medications Medication Dose Route Frequency acetaminophen (TYLENOL) tablet 1,000 mg 1,000 mg oral Q6H ASHLEY al & mag hydroxide kypznjndvzb-ncwmlblunyccnvt-xhszrgsfh-nystatin (MAGIC MOUTHWASH) oral suspension 1-1-1-1 20 mL [...] No focal deficits ASSESSMENT/PLAN: CAD - prior GA with multiple PCI - [facility] showed multivessel disease - LVEF dropped [...] - management per primary/nephrology team SHAMIKA Donald [facility] 10/26/2023 2:17 PM Y MIXER * Fernandez Carranza MD - 10/26/2023 12:29 PM CST Images from the original note were not included. Nephrology Juvenal Garvin Jr. - 1970 Primary : Aditya Correa MD History and interval events: 53-year-old gentleman with history of type 1 diabetes mellitus on insulin pump, CHF, CAD, ESRD on peritoneal dialysis initially presented to [facility] in [facility] on October 09 for symptoms of general [...] a cardiology consultation which lead to a [facility]. Results were notable for severe CAD and he was recommended to seek surgical revascularization evaluation prompting transfer to this facility. He missed his peritoneal dialysis last evening during transfer. He has been on peritoneal dialysis for approximately 2 years and tolerating this well under the care of Dr. Reyes. He does make some urine. [facility] Warfarin started for history [...] PO4 binder with meals Fernandez Carranza MD [facility]: MD Chula Domínguez, MD Renny Flood PA Derek Larson, MD FASN Rose Mattli, NP Rohan Devanpalli, MD Candace Shirley, NP [address] [place], [place] [address] [phone] - Office [phone] - Fax Y MIXER * Nusrat Us RPh - 10/26/2023 11:17 [...] previous supratherapeutic response to 3 mg doses. Y MIXER * Gustavo Swan, PT - 10/26/2023 10:10 [...] of ESRD on PD, CAD s/p PCI, GA, and DVTon chronic anticoagulation, Type 1 DM, HTN who presented to [facility] initially on 10/09/23 with general malaise and found to be in DKA and admitted to ICU. During hospitalization found to have elevated Troponins prompted cardiology evaluation and LHC significant for multivessel CAD and subse quently also found aortic stenosis. Transferred to [facility] 10/14/23 for surgical evaluation. Patient isnow s/p [...] Mobility Status;Inaccessible home environment;Home environment challenged Modified Lorida Score 1 Plan Plan Continue with current [...] (from Physical Therapy) Active Problems Problem: PT [facility] [place] Start Date: 10/21/23 Goal Start Date Expected End Date End Date PT [facility] - [facility] [place] 1 10/21/23 11/04/23 -- Goal Details: Patient will perform supine<>sit Independent. Goal Start Date Expected End Date End Date PT [facility] - [facility] [place] 2 10/21/23 11/04/23 -- Goal Details: Patient will perform bed<>chair transfer Modified Independent with ww. Goal Start Date Expected End Date End Date PT [facility] - [facility] [place] 3 10/21/23 11/04/23 -- Goal Details: Patient will ambulate 350 feet Modified Independent with wheeled walker. Goal Start Date Expected End Date End Date PT [facility] - [facility] [place] 4 10/21/23 11/04/23 -- Goal Details: Patient will ambulate up/down 1 step Modified Independent as needed to enter and exithome. Education: Patient has been educated on the role of PT, safety , precautions, mobility training, and home exercise program. Education completed via explanation, teach back, and demonstration. Patient verbalized understanding and demonstrated understanding Y MIXER * Nida Starr, OLIVE KNOCKER - 10/25/2023 3:01 PM CST Physical Therapy 10/25/23 1501 PT Last Visit Session Type Treatment PT Received On 10/25/23 Safe Environment Arm band checked;Patient found in supine;Session completed bedside;Gait belt utilized for all out of bed mobility Subjective Agreeable to Therapy Additional Pertinent History per eval: 53 y/o M presents for surgical intervention on 10/14/23 from [facility]. Pt is s/p CABG x 3 (SVG-PDA, SVG-OM, BRICE-LAD) and mechanical AVR on 10/[address] Valero. Pt has history of ESRD on PD, CAD s/p PCI, GA, and DVT on chronic anticoagulation, Type 1 [...] End Date End Date PT G - [facility] [place] 3 10/21/23 11/04/23 -- Goal Details: Patient will ambulate 350 feet Modified Independent with wheeled walker. Goal Start Date Expected End Date End Date PT [facility] - [facility] [place] 4 10/21/23 11/04/23 -- Goal Details: Patient will ambulate up/down 1 step Modified Independent as needed to enter and exithome. Cosigned by Gustavo Swan, PT at 10/25/2023 4:45 PM SPRAY MIXER Y MIXER Y MIXER * Guerline Rodriguez PA - 10/25/2023 2:13 [...] 1 View - Portable - in AM [[id number]] Collected: 10/25/23 1143 Order Status: Completed Updated: [...] discharge Plan reviewed with LESLY Larose 10/25/2023 Y MIXER * Nusrat Us RPh - 10/25/2023 10:39 [...] with another 1.5 mg dose and reassess. Y MIXER * Sophia Peoples COTA - 10/25/2023 9:43 [...] Vitals post activity BP 129/70, HR 63, [id number] Safe Environment End of Therapy Session Safe [...] Suzie Aiken OT at 10/25/2023 11:49 AM SPRAY MIXER Y MIXER Y MIXER * Emiliana Dickson NP - 10/25/2023 9:27 [...] No focal deficits ASSESSMENT/PLAN: CAD - prior GA with multiple PCI - C showed multivessel [...] management per primary/nephrology team Emiliana Dickson NP [facility] 10/25/2023 9:28 AM Cosigned by Dilip Cohen MD at 10/25/2023 9:55 AM SPRAY MIXER Y MIXER Y MIXER Associated attestation - Dilip Cohen MD - 10/25/2023 9:55 AM SPRAY MIXER Patient seen at the bedside Is continuing to recover Still has some edema Continue anticoagulation for both the Afib for the on X valve Total time taken was 15 minute * Nida Starr, OLIVE KNOCKER - 10/24/2023 11:46 AM CST Physical Therapy 10/24/23 1146 PT Last Visit Session Type Treatment PT Received On 10/24/23 Safe Environment Arm band checked;Patient found sitting at edge of bed;Session completed bedside;Gait belt utilized for all out of bed mobility Subjective Agreeable to Therapy Additional Pertinent History per eval: 53 y/o M presents for surgical intervention on 10/14/23 from [facility]. Pt is s/p CABG x 3 (SVG-PDA, SVG-OM, BRICE-LAD) and mechanical AVR on 10/[address] Valero. Pt has history of ESRD on PD, CAD s/p PCI, GA, and DVT on chronic anticoagulation, Type 1 [...] (from Physical Therapy) Active Problems Problem: PT [facility] [place] Start Date: 10/21/23 Goal Start Date Expected End Date End Date PT [facility] 1 10/21/23 11/04/23 -- Goal Details: Patient will perform supine<>sit Independent. Goal Start Date Expected End Date End Date PT [facility] - [facility] [place] 2 10/21/23 11/04/23 -- Goal Details: Patient will perform bed<>chair transfer Modified Independent with ww. Goal Start Date Expected End Date End Date PT [facility] - [facility] [place] 3 10/21/23 11/04/23 -- Goal Details: Patient will ambulate 350 feet Modified Independent with wheeled walker. Goal Start Date Expected End Date End Date PT [facility] - [facility] [place] 4 10/21/23 11/04/23 -- Goal Details: Patient will ambulate up/down 1 step Modified Independent as needed to enter and exithome. Cosigned by Gina Mason DPT at 10/24/2023 3:12 PM SPRAY MIXER Y MIXER Y MIXER * Fernandez Carranza MD - 10/24/2023 10:56 AM CST Images from the original note were not included. Nephrology Juvenal Garvin . - 1970 Primary : Aditya Correa MD History and interval events: 53-year-old gentleman with history of type 1 diabetes mellitus on insulin pump, CHF, CAD, ESRD on peritoneal dialysis initially presented to [facility] in [facility] on October 09 for symptoms of general [...] a cardiology consultation which lead to a [facility]. Results were notable for severe CAD [...] PO4 binder with meals Fernandez Carranza MD [facility]: MD Chula Domínguez, MD Renny Flood PA Derek Larson, MD FASN Rose Mattli, NP Rohan Devanpalli, MD Candace Shirley, ROBERTO [address] [place], [place] [address] [phone] - Office [phone] - Fax Y MIXER * Nona Alcala PA - 10/24/2023 10:15 [...] discharge Patient discussed with LESLY Vallecillo 10/24/2023 Y MIXER * Nusrat Us RPh - 10/24/2023 9:49 [...] setting (nutrition). Warfarin dose today: 1.5 mg Y MIXER * Salena Rene NP - 10/24/2023 9:26 AM CST Cardiology Daily Progress - [facility] SUBJECTIVE: Mr. Garvin is resting in bed. [...] No focal deficits ASSESSMENT/PLAN: CAD - prior GA with multiple PCI - [facility] showed multivessel [...] water restriction with hyponatremia Salena Rene NP [facility] 10/24/2023 9:26 AM Y MIXER * Wyatt Rodriguez EP-C - 10/24/2023 8:08 AM CST Inpatient Cardiac Rehab Education Patient Information Patient Name: Juvenal Garvin Jr. : 1970 Room/Bed: [place] [id number] Insurance: [employer] + IDPA Progress Note Octave Board Assembler: ROSA Silva Date: 10/24/2023 Referring Diagnosis for Cardiac Rehab - s/p CABG x 3, AVR Education Provided Explained my role as a Cardiac Rehab Navigator (CRN). Provided Cardiac Rehab education to patient. Family was (not) present. Patient was provided with Cardiac Rehab education folder as well as a [facility] Heart Education booklet. Risk Factors: HTN, HLD, [...] fats)and exercise. Advised patient to consult their salt miner, nurse, and/or physician if they have any questions about their diet/nutrition. Cardiac Rehab: Gave patient options of facilities for Outpatient Cardiac Rehab (OCR) in their community. Explained OCR program. Patient expressed knowledge towards local OCR program - patient prefers [facility] I anticipate no barriers for patient to [...] working towards eventually trying to reach the [employer] recommendations in regards to exercise: [...] when it would be appropriate to call Commercial Interior Designer's office, go to the ER, or call 911. Insurance Coverage: Briefly explained general insurance coverage for OCR, but assured patient that OCR facility will usually call insurance and inform patient of more of an approximate coverage. Post-Discharge: Explained process between discharge from hospital, and getting set up in an OCR program - follow upwith Commercial Interior Designer, CRN follow up calls, OCR program contact. Conclusion Patient seems likely to participate in OCR. Reassured patient of importance and health care provider support of OCR. Patient verbalized understanding of education, and all questions were answered to the best of my ability. Will complete order for OCR to be sent to Commercial Interior Designer. Thank you for allowing us to assistant chief engineer in the care of this patient, please don't hesitate to contact the Cardiac Rehab Navigator office with any questions: [phone]. Y MIXER * Fernandez Carranza MD - 10/23/2023 5:30 PM CST Images from the original note were not included. Nephrology Juvenal Garvin Jr. - 1970 Primary : Aditya Correa MD History and interval events: 53-year-old gentleman with history of type 1 diabetes mellitus on insulin pump, CHF, CAD, ESRD on peritoneal dialysis initially presented to [facility] in [facility] on October 09 for symptoms of general [...] PO4 binder with meals Fernandez Carranza MD [facility]: MD Chula Domínguez, MD Renny Flood PA Derek Larson, MD FASN Rose Mattli, NP Rohan Devanpalli, MD Candace Shirley, NP [address] [place], [place] [address] [phone] - Office [phone] - Fax Y MIXER * Nona Alcala PA - 10/23/2023 3:04 [...] discharge Patient discussed with LESLY Vallecillo 10/23/2023 Y MIXER * Gustavo Swan, PT - 10/23/2023 10:42 [...] presents for surgical intervention on 10/14/23 from [facility]. Pt is s/p CABG x 3 (SVG-PDA, SVG-OM, BRICE-LAD) and mechanical AVR on 10/[address] Valero. Pt has history of ESRD on PD, CAD s/p PCI, GA, and DVT on chronic anticoagulation, Type 1 [...] (from Physical Therapy) Active Problems Problem: PT [facility] [place] Start Date: 10/21/23 Goal Start Date Expected End Date End Date PT [facility] - [facility] [place] 1 10/21/23 11/04/23 -- Goal Details: Patient will perform supine<>sit Independent. Goal Start Date Expected End Date End Date PT [facility] - [facility] [place] 2 10/21/23 11/04/23 -- Goal Details: Patient will perform bed<>chair transfer Modified Independent with ww. Goal Start Date Expected End Date End Date PT [facility] - [facility] [place] 3 10/21/23 11/04/23 -- Goal Details: Patient will ambulate 350 feet Modified Independent with wheeled walker. Goal Start Date Expected End Date End Date PT [facility] - [facility] [place] 4 10/21/23 11/04/23 -- Goal Details: Patient will ambulate up/down 1 step Modified Independent as needed to enter and exithome. Education: Patient has been educated on the role of PT, safety , precautions, mobility training, stairs, and home exercise program. Education completed via explanation, teach back, and demonstration.Patient verbalized understanding, demonstrated understanding, and needs ongoing reinforcement Y MIXER * Nusrat Us RPh - 10/23/2023 9:40 [...] the previous starting dose of 3 mg. Y MIXER * Nida Starr PTA - 10/23/2023 8:10 AM CST Physical Therapy 10/23/23 0810 PT Last Visit Session Type Treatment PT Received On 10/23/23 PT Missed Visit Reason Procedure/testing/appointment (Pt is currently on PD - nursing will notify when pt is finished.) Y MIXER * Saulo Kimball COTA - 10/23/2023 7:10 [...] Suzie Aiken OT at 10/23/2023 9:51 AM SPRAY MIXER Y MIXER Y MIXER * Bartolo Solorio MD - 10/23/2023 6:38 AM CST Cardiology Inpatient Progress Note [facility] SUBJECTIVE: Pt had no [...] cyanosis or clubbing. ASSESSMENT/PLAN: CAD - prior GA with multiple PCI - C showed multivessel [...] wafarin with mechanical valve Bartolo Solorio MD, [facility], [facility] 10/23/2023 6:38 AM Y MIXER * Ron Martinez MD - 10/22/2023 8:57 PM CST Images from the original note were not included. Nephrology Juvenal Garvin Jr. - 1970 Primary : Aditya Correa MD History and interval events: 53-year-old gentleman with history of type 1 diabetes mellitus on insulin pump, CHF, CAD, ESRD on peritoneal dialysis initially presented to [facility] in [facility] on October 09 for symptoms of general [...] make some urine. [facility] Warfarin started for history [...] regimen Start CORRINE weekly Ron Martinez MD [facility]: MD Chula Domínguez PA Graeme Mindel, MD Justin Krafft, PA Derek Larson, MD FASN Rose Mattli, NP Rohan Devanpalli, MD Candace Shirley, NP [address] [place] [address] [phone] - Office [phone] - Fax Y MIXER * Yolanda Campos PA - 10/22/2023 5:09 [...] docusate sodium, 100 mg, oral, BID epoetin genai-epbx, 10,000 Units, subcutaneous, Weekly - 2100 ezetimibe, [...] prophylaxis Patient discussed with LESLY Danielle 10/22/2023 Y MIXER * Makayla Diallo [facility] - 10/22/2023 9:06 AM CST Warfarin monitoring [...] following significant increase yesterday Makayla Diallo, PharmD Reset Merchandiser 10/22/23 9:06 AM Y MIXER * Bartolo Solorio MD - 10/22/2023 6:43 AM CST Cardiology Inpatient Progress Note [facility] SUBJECTIVE: Pt had no [...] cyanosis or clubbing. ASSESSMENT/PLAN: CAD - prior GA with multiple PCI - [facility] showed multivessel disease - LVEF dropped [...] wafarin with mechanical valve Bartolo Solorio MD, [facility], [facility] 10/22/2023 6:43 AM Y MIXER * Yolanda Campos PA - 10/21/2023 4:19 [...] prophylaxis Patient discussed with LESLY Danielle 10/21/2023 Y MIXER Y MIXER * Gina Mason DPT - 10/21/2023 9:05 AM CST Physical Therapy 10/21/23 09 General Chart Reviewed Yes Session Type Evaluation PT Received On 10/21/23 Safe Environment Arm band checked;Patient found in supine;Gait belt utilized for all out of bed mobility Subjective Agreeable to Therapy Additional Pertinent History 53 y/o M presents for surgical intervention on 10/14/23 from [facility]. Pt is s/p CABG x 3 (SVG-PDA, SVG-OM, BRICE-LAD) and mechanical AVR on 10/[address] Valero. 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 Goal Start Date Expected End Date End Date PT [facility] - [facility] [place] 2 10/21/23 11/04/23 -- Goal Details: Patient will perform bed<>chair transfer Modified Independent with ww. Goal Start Date Expected End Date End Date PT [facility] - [facility] [place] 3 10/21/23 11/04/23 -- Goal Details: Patient will ambulate 350 feet Modified Independent with wheeled walker. Goal Start Date Expected End Date End Date PT [facility] - [facility] [place] 4 10/21/23 11/04/23 -- Goal Details: Patient will ambulate up/down 1 step Modified Independent as needed to enter and exithome. Y MIXER * Ron Martinez MD - 10/21/2023 8:48 AM CST Images from the original note were not included. Nephrology Juvenal Michael Pilo . - 1970 Primary : Aditya Correa MD History and interval events: 53-year-old gentleman with history of type 1 diabetes mellitus on insulin pump, CHF, CAD, ESRD on peritoneal dialysis initially presented to [facility] in [facility] on October 09 for symptoms of general [...] regimen Start CORRINE weekly Ron Martinez MD [facility]: MD Chula Domínguez PA Graeme Mindel, MD Justin Krafft, PA Derek Larson, MD FASN Rose Mattli, NP Rohan Devanpalli, MD Candace Shirley, NP [address] [place], [place] [address] [phone] - Office [phone] - Fax Y MIXER * Bartolo Solorio MD - 10/21/2023 8:08 AM CST Cardiology Inpatient Progress Note [facility] SUBJECTIVE: Pt had no [...] cyanosis or clubbing. ASSESSMENT/PLAN: CAD - prior GA with multiple PCI - [facility] showed multivessel disease - LVEF dropped [...] wafarin with mechanical valve Bartolo Solorio MD, [facility], [facility] 10/21/2023 8:08 AM Y MIXER * Dominique Fuentes RRT - 10/21/2023 12:29 AM CST 10/20/232246 NPPV Information NPPV Mode CPAP NPPV Status Refused NPPV Type V-60 NPPV ID L [id number] Therapist Assist Charges RT Therapist Assist NPPV 1 Encouraged patient to have his CPAP unit brought in since intolerable of ours. Y MIXER * Carly Spencer RD - 10/20/2023 3:27 PM CST Nutrition Follow-up Progress Note Encounter Date: 10/20/23 3:30 PM Nutrition Progress Summary: Patient is a 53 y.o. male. Admit Dx: CAD in tangirnaq artery [I25.10]. Admitted on 10/13/2023. Pt s/p CABG/AVR 10/17/23. PMH includes Type I DM, ESRD on PD. Pt reports he is tolerating his meals and drinking the Nepro supplement. Increased protein intake encouraged. Pt new on Coumadin. Educated pt on Coumadin/diet interaction. Pt is familiar with his diabetic renal diet and plans to improve his adherence to diet. Clinical Aide consult noted. Pt with good understanding of [...] Renal Diet effective now Question Answer Comment ([facility]) Diet type Restricted Diabetic: Consistent Carbohydrate Renal: [...] of Weight Used for Estimated Protein : [place] Protein Needs Based on g/k.4 Total Protein Estimated Needs (gm): 105.42 Kcal/kg Type of Weight Used for Estimated Kcals: [place] Kcal/k Total Kcal/kg Estimated Needs : 2259 [...] High protein intake. 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 [facility] Daily Progress Note- Patient: Juvenal Garvin Jr. : 1970 Age: 53 y.o. male Admitting Physician: Jaqueline Valero MD Travel Registered Nurse Nicu: Kirsten Burns MD Shift: [facility] AM Interval History: NEON Admitted to the hospital on 10/13/2023 11:18 PM for CAD in tangirnaq artery [I25.10] Hospital Course: (10/17/23) s/p CABG [...] clean, dry, intact. 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 Drains: Chest tubes to -20 suction with [...] 10/20/2359 10/20/23 07 - 10/21/23 0659 Shift [id number] 24 Hour Total [id number] 24 Hour Total INTAKE P.O. 360 360 [...] s/p mechanical AVR Post CPB LEIA on [employer] 5 with LVEF 40-50%, normal RV. (Told during report) no note in place. Arrived on [employer] [address], NE 0.05 with low filling pressures and AAI 90. Post op bleeding requiring multiple transfusions. Bleeding from CT slowed overnight but oozing at lines and drain sites. - EPW VVI bu - Consider DC'ing CT - ASA daily - DC Heparin drip - Continue Warfarin per pharmacy - INR goal 2-3 - half-way anticoagulation plan Warfarin and Plavix for NSTEMI - statin daily - Torsemide 100mg daily start today - DC Arterial line Paroxysmal atrial fibrillation Sinus bradycardia History of pAF. On Eliquis at home. Was on Heparin drip pre op. Arrived from OR AAI at 90 with reported bradycardia in PCU while on BB SB 50-60s. REAL ESTATE CLERK weaned off overnight and EPW to VVI [...] off Insulin drip prior to transfer to [facility]. Insulin pump not working when he presented [...] by: Byron Olvera NP CRITICAL CARE: Team: [facility] CT Shift: AM Level of Billing: Subsequent [...] plan with the patient's team and other medical/technology applications consultant staff. This time was in addition to and separate from care provided by other practitioners on this day of service. Cosigned by Kirsten Burns MD at 10/29/2023 10:56 PM CDT Y MIXER * Nusrat Us RPh - 10/20/2023 12:06 [...] increase as much as it did today. Y MIXER * Bartolo Solorio MD - 10/20/2023 9:18 AM CST Cardiology Daily Progress - [facility] [facility] SUBJECTIVE: Mr. Garvin is resting comfortably in [...] tablet 1,000 mg 1,000 mg oral Q6H [facility] aspirin chewable tablet 81 mg 81 [...] 0.9% (premix) solution 1,000 mg 1,000 mg [id number] PRN 1,000 mg at 10/18/23 0032 Carrier [...] No focal deficits ASSESSMENT/PLAN: CAD - prior GA with multiple PCI - [facility] showed multivessel disease - LVEF dropped [...] fibrillation (HR in 60s) Salena Rene NP [facility] 10/20/2023 9:18 AM Pt evaluated with COORDINATOR OF HEALTH SERVICES. He is doing well clinically with planned transfer from the ICU today. Afib rates are well-controlled (currently in the 60s) with plan detailed above. Y MIXER Y MIXER * Chula Valera PA - 10/20/2023 6:43 AM CST Images from the original note were not included. Nephrology Juvenal Garvin Jr. - 1970 Primary : Aditya Correa MD History and interval events: 53-year-old gentleman with history of type 1 diabetes mellitus on insulin pump, CHF, CAD, ESRD on peritoneal dialysis initially presented to [facility] in [facility] on October 09 for symptoms of general [...] Continue active and nutritional vitamin-D LESLY Ortiz [facility]: MD Chula Domínguez PA Graeme Mindel, MD Justin Krafft, PA Derek Larson, MD FASN Rose Mattli, NP Rohan Devanpalli, MD Candace Shirley, NP [address] [place], [place] [address] [phone] - Office [phone] - Fax Y MIXER Y MIXER * Eliana Márquez, PT - 10/19/2023 2:25 PM CST Physical Therapy Cancellation 10/19/23 1425 PT Last Visit Session Type Other (comment) PT Received On 10/19/23 Subjective Other Subjective Comment Per RN, Pt. is too fatigued to participate in therapy, will attempt evaluation 10/19. PT Missed Visit Reason MD/RN Hold;Asleep Y MIXER * Chula Valera PA - 10/19/2023 12:42 PM CST Images from the original note were not included. Nephrology Juvenalfabi Garvin . - 1970 Primary : Aditya Correa MD History and interval events: 53-year-old gentleman with history of type 1 diabetes mellitus on insulin pump, CHF, CAD, ESRD on peritoneal dialysis initially presented to [facility] in [facility] on October 09 for symptoms of general [...] vitamin-D Resume Phoslo with meals LESLY Ortiz [facility]: MD Chula Domínguez PA Graeme Mindel, MD Justin Krafft, PA Derek Larson, MD FASN Rose Mattli, NP Rohan Devanpalli, MD Candace Shirley, ROBERTO [address] [place], [place] [address] [phone] - Office [phone] - Fax Y MIXER Y MIXER * Reyes Odom - 10/19/2023 11:49 AM CST Occupational Therapy Evaluation 10/19/23 1035 General Chart Reviewed Yes Session Type Evaluation OT Received On 10/19/23 Safe Environment Arm band checked;Patient found in supine Subjective Agreeable to Therapy Subjective Comment I'm so cold and tired. Additional Pertinent History 53 y/o M presents for surgical intervention on 10/14/23 from [facility]. Pt is s/p CABG x 3 (SVG-PDA, SVG-OM, BRICE-LAD) and mechanical AVR on 10/[address] Valero. Pt has history of ESRD on PD, CAD s/p PCI, GA, and DVT on chronic anticoagulation, Type 1 [...] mobility at baseline. 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 Grooming Grooming: Where assessed Chair Grooming: Level of assistance Minimum Assist (Pt exhibiting functionally weak auger machine offbearer strength and fine motor skills with BUEs. [...] Suzie Aiken OT at 10/19/2023 11:50 AM SPRAY MIXER Y MIXER Y MIXER * Felipe Robledo DO - 10/19/2023 8:09 [...] to chair today progressing Felipe Robledo DO, [facility] 10/19/2023 8:09 AM Y MIXER * Dawna Castellanos NP - 10/19/2023 6:57 AM CSTAssociated Order(s): Critical Care Post-Procedure Diagnose(s): CAD in tangirnaq artery Images from the original note were not included. [facility] Daily Progress Note- Patient: Juvenal Garvin Jr. : 1970 Age: 53 y.o. male Admitting Physician: Jaqueline Valero MD Travel Registered Nurse Nicu: Kirsten Burns MD Shift: [facility] AM Interval History: REAL ESTATE CLERK wean q6h for Scv02 >65-> off d/t HTN Changed to VVI 50, HR 60 Nasal cpap Dc dilaudid, dec oxy to 2.5 Admitted to the hospital on 10/13/2023 11:18 PM for CAD in tangirnaq artery [I25.10] Hospital Course: (10/17/23) s/p CABG [...] clean, dry, intact. 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 Drains: Chest tubes to -20 suction with [...] 0659 10/19/23 07 - 10/20/23 0659 Shift 7845-6491 6152-6696 24 Hour Total 2270-9282 6400-1215 24 Hour Total INTAKE P.O. 100 100 I.V.(mL/kg) 500(4) 500(4) Shift Total(mL/kg) 600(4.8) 600(4.8) OUTPUT Urine(mL/kg/hr) 155(0.1) 135(0.1) 290(0.1) 20 20 Drains 0 0 0 Other 1279 1279 1459 1459 Chest Tube 20 115 135 Shift Total(mL/kg) 1454(11.5) 250(2) 1704(13.5) 1479(11.7) 1479(11.7) NET -145 632 -1566 -2176 -3340 Weight (kg) 126.2 126.2 126.2 126.2 126.2 [...] s/p mechanical AVR Post CPB LEIA on REAL ESTATE CLERK 5 with LVEF 40-50%, normal RV. (Told during report) no note in place. Arrived on REAL ESTATE CLERK 5, NE 0.05 with low filling pressures and AAI 90. Post op bleeding requiring multiple transfusions. Bleeding from CT slowed overnight but oozing at lines and drain sites. Overnight REAL ESTATE CLERK weaned off due to hypertension. EPW changed to VVI bu - Check Scvo2 and lactate now--->lactate 1.0, scvo2 70 - EPW VVI bu - CT to (-)20cm suction, can DC PCT today - ASA daily - Increase Heparin drip to full nomogram - Continue Warfarin per pharmacy - predatory animal exterminator anticoagulation plan Warfarin and Plavix for NSTEMI - statin daily - Torsemide 100mg daily start today - DC Arterial line Paroxysmal atrial fibrillation Sinus bradycardia History of pAF. On Eliquis at home. Was on Heparin drip pre op. Arrived from OR AAI at 90 with reported bradycardia in PCU while on BB SB 50-60s. REAL ESTATE CLERK weaned off overnight and EPW to VVI [...] off Insulin drip prior to transfer to [facility]. Insulin pump not working when he presented to ER. Very labile blood sugars on basal/SSI regimen with glucose up to 300s. Likely difficulty with management due to PD. Remains on Insulin infusion, glucose labile while on PD. - Continue Insulin infusion per [place] protocol - do not turn off drip [...] glycol and bisacodyl suppository PRN. Glycemic control: [place] Protocol insulin gtt.. Lab Results Component Value [...] by: Dawna Castellanos NP CRITICAL CARE: Team: [facility] CT Shift: AM Level of Billing: Critical [...] plan with the ICU team and other medical/technology applications consultant staff, making frequent assessments and decisions [...] Burns MD at 10/29/2023 10:55 PM CDT Y MIXER * Chula Valera PA - 10/18/2023 2:46 PM CST Images from the original note were not included. Nephrology Juvenal Garvin Jr. - 1970 Primary : Aditya Correa MD History and interval events: 53-year-old gentleman with history of type 1 diabetes mellitus on insulin pump, CHF, CAD,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 soft, absent bowel sounds, OGT to LIWS R leg w/ SVG site PENNIE, wound vac to sternum R rad AL, RIJ PAC/QLC Day time events Keep intubated and sedated tonight Ca+ DDAVP Keep REAL ESTATE CLERK 1 PRBC, 2 FFP Plan for PD [...] may have been dictated with voice-recognition software, recruitment consultant so recruitment consultant errors may be present. NOTICE: The above [...] by: Gamal Fox NP CRITICAL CARE: Team: [facility] CT Shift: PM Level of Billing: Critical [...] plan with the ICU team and other medical/technology applications consultant staff, making frequent assessments and decisions [...] Kirsten Burns MD at 10/18/2023 9:16 AM SPRAY MIXER Y MIXER Y MIXER documented in this encounter Consult Notes * Loraine Medina RN - 10/23/2023 12:00 PM CST Juvenal Garvin Jr. [id number] Jaqueline Valero MD Pre-Education Assessment Units of [...] Name: Juvenal Garvin Jr. : 1970 Room/Bed: [place] [address] Patient has had diabetes for NUMEROUS [...] Value Date HGBA1C 8.1 (H) 10/16/2023 Pump Turner Machine Operator: OMNIPOD Insulin Brand: NOVOLIN Does patient have supplies with them?: YES Bolus Wizard On?: YES INSULIN PUMP SETTINGS Total Daily Basal (TDB): 54 Basal Rates: 0000: 3.0 0800: 1.5 2000: 3.0 Insulin to Carb Ratio: 1:9 Sensitivity: 25 Target: 120 Active Insulin Time (AIT): 4 HOURS Thank you for this consult, Loraine Medina RN, Shuttleless Loom Weaver 10/23/2023 12:44 PM Y MIXER * Loraine Medina RN - 10/20/2023 10:45 AM CSTAssociated Order(s): IP CONSULT TO PAYROLL ASSISTANT Juvenal Garvin Jr. [id number] [place] [id number] Jaqueline Valero MD Pre-Education Assessment Units of [...] concerns at this time. Loraine Medina RN, Shuttleless Loom Weaver 10/20/2023 11:27 AM Y MIXER * Augustin Bethea MD - 10/18/2023 10:51 [...] ketoacidosis, elevated cardiac enzymes. Further evaluation with [facility] revealed multivessel coronary artery disease. Patient transferred to [facility] for CABG. Patient underwent CABG x 3, mechanical AVR . Endocrine diabetes management. Hemoglobin A1c noted to be 8.1% 10/14, Patient has an insulin pump at home, not review his setting as the pump not available bedside. Patient continues to be confused and could not provide any history From endocrinology note in the past at [facility] 2021: BASAL RATE TOTAL BASAL DAILY [...] PUMP: Continue Omnipod 5 insulin pump with Brandcast G6 CGM at home settings: TIME BASAL [...] high Assessment /Plan Principal Problem: CAD in tangirnaq artery 1. Uncontrolled type 1 diabetes, A1c [...] don't hesitate to call. Augustin Bethea MD [facility] [email or web address] Office phone: [phone] Office fax: [phone] Y MIXER Y MIXER * Fernandez Carranza MD - 10/14/2023 3:27 PM CSTAssociated Order(s): IP CONSULT TO NEPHROLOGY Images from the original note were not included. Nephrology Juvenal Garvin Jr. - 1970 Primary : Aditya Correa MD History and interval events: 53-year-old gentleman with history of type 1 diabetes mellitus on insulin pump, CHF, CAD, ESRD on peritoneal dialysis initially presented to [facility] in [facility] on October 09 for symptoms of general [...] him to hemodialysis perioperatively Fernandez Carranza MD [facility]: MD Chula Domínguez PA Graeme Mindel, MD Justin Krafft, PA Derek Larson, MD FASN Rose Mattli, NP Rohan Devanpalli, MD Candace Shirley, ROBERTO [address] - [address] [place], [place] [address] [phone] Office [phone] - Fax Y MIXER Y MIXER * Guerline Rodriguez PA - 10/14/2023 2:10 PM CSTAssociated Order(s): IP CONSULT TO CARDIOTHORACIC SURGERY Cardiothoracic Surgery Consultation Patient Name: Juvenal Garvin Jr. Admit Date: 10/13/2023 Admitting Provider: Julio Lopez DO Chief Complaint Multivessel coronary artery disease, aortic valve stenosis History of Present Illness Juvenal Garvin is a 53-year-old male who has been transferred to [facility] for consideration of coronary artery bypass grafting and aortic valve replacement. His past medical history includes severe CAD with previous PCI, paroxysmal atrial fibrillation, type 1 diabetes mellitus, ESRD on peritoneal dialysis, hypertension, hyperlipidemia, and sleep apnea. He presented to [facility] in [place], [place] on 10/09/23 complaining of fatigue, malaise, [...] the catheterization. He has been transferred to [facility] for consideration of coronary artery bypass and aortic valve replacement. He had been receiving Eliquis and Plavix up until transfer to [facility]. Since arrival here he denies any additional chest pain episodes. His glucose levels continue to fluctuate but have reasonably controlled today. Past Medical History: Diagnosis Date CAD (coronary artery disease) Chest pain Diabetes mellitus (HCC) Diabetes mellitus type I (HCC) Dialysis patient ([facility]) (HCC) ESRD on dialysis ([facility]) ([facility]) GERD (gastroesophageal reflux disease) Hyperlipidemia Hypertension Sleep [...] Jaqueline Valero MD at 10/15/2023 10:55 AM SPRAY MIXER Y MIXER Y MIXER Y MIXER Y MIXER Associated attestation - Jaqueline Valero MD - 10/15/2023 10:55 AM SPRAY MIXER I have seen and examined the patient, reviewed the electronic medical record, personally reviewed the patient's cardiac catheterization, and agree with the attached history and physical. In brief, he is a 53-year-old man with a history of end-stage renal disease on peritoneal dialysis,myocardial infarction, multiple prior coronary stenting procedures, and DVT who presented to [facility] with progressive exertional shortness breath, chest pain, and hyperglycemia. Repeat cardiac catheterization there revealed progressive coronary artery disease, which is now severe in all 3main coronary arteries. His left ventricular systolic function was abnormal and an echocardiogram there revealed significant aortic valve stenosis. And severe left ventricular systolic dysfunction. He was transferred to [facility] for further workup and treatment. ASSESSMENT: [...] for Monday. Jaqueline Valero MD Cardiothoracic Surgery [facility] * Pradeep Reeves, ROBERTO - 10/14/2023 12:13 PM CSTAssociated Order(s): IP CONSULT TO CARDIOLOGY Cardiology Consult - [facility] [address] Reason For Consult: CAD Requesting Provider: Frank Cody MD SUBJECTIVE: Chief Complaint/History of Present Illness: Mr. Garvin is a 53 y/o man with hx of hypertension, dyslipidemia, diabetes, CAD s/p multiple prior PCI, ESRD, paroxysmal atrial fibrillation and DVT and BEN. The patient presented to [facility] with a complaint of hyperglycemia. He has [...] his echo. He was transferred to [facility] for CTS evaluation. He is on [...] (HCC) Diabetes mellitus type I ([facility]) Dialysis patient ([facility]) ([facility]) ESRD on dialysis ([facility]) ([facility]) GERD (gastroesophageal reflux disease) Hyperlipidemia Hypertension Sleep [...] PUMP: Continue Omnipod 5 insulin pump with NextUsercom G6 CGM at home settings: TIME BASAL [...] and affect appropriate -Cardiac Cath (10/13/23 at [facility]): LM no dz. LCX 99% ostial stenosis and 90% stenosis atOM/LCX bifurcation. LAD mild diffuse disease in the ostium with a 90% stenosis at the origin of a very small high diagonal branch and otherwise mild LAD disease. RCA 99% mid stenosis. -Echo (10/11/23 at [facility]): LVEF 20-25%, moderate ASSESSMENT/PLAN: 1. CAD: The [...] please don't hesitate to call. SHAMIKA Donald [facility] 10/14/2023 12:13 PM Cosigned by Felipe Robledo DO at 10/15/2023 10:13 AM SPRAY MIXER Y MIXER Y MIXER Y MIXER Y MIXER documented in this encounter Nursing Notes * [...] (Comments): blister-popped Wound Status Healing Site Assessment [place];Moist Marie-wound Assessment Fragile;Flaky;Dry;Erythematous Margins Defined edges Closure Unapproximated Drainage Amount Small Drainage Description Serous Drainage Odor No odor Dressing Status New Dressing Silver foam;Gauze rolled Interventions Cleansed Recommendations: senior risk manager to complete Polymem dressing as ordered. Pressure injury prevention measures dn moisture management in place. Education: Plan of Care discussed with: Patient, senior risk manager Questions answered: YES Wound/Ostomy will follow patient: [...] high Assessment /Plan Principal Problem: CAD in tangirnaq artery 1. Uncontrolled type 1 diabetes, A1c [...] out of town till 11/14. Pl call recreational therapy aide provider. Once ready per primary team can [...] don't hesitate to call. Augustin Bethea MD [facility] [email or web address] Office phone: [phone] Office fax: [phone] * Plan of Care - Jessica Rodriguez [...] PUMP: Continue Omnipod 5 insulin pump with Brandcast G6 CGM at home settings: TIME BASAL [...] high Assessment /Plan Principal Problem: CAD in tangirnaq artery 1. Uncontrolled type 1 diabetes, A1c [...] don't hesitate to call. Augustin Bethea MD [facility] [email or web address] Office phone: [phone] Office fax: [phone] * Post-Procedure Note - Basilia John RN [...] THIS IS FOR THE INSULIN PUMP: Continue [employer] 5 insulin pump with Brandcast G6 CGM at home settings: TIME BASAL [...] high Assessment /Plan Principal Problem: CAD in tangirnaq artery 1. Uncontrolled type 1 diabetes, A1c [...] don't hesitate to call. Augustin Bethea MD [facility] [email or web address] Office phone: [phone] Office fax: [phone] * Post-Procedure Note - Basilia John RN [...] 10/30/2023 2:42 PM CDT Received notification from [facility] acute rehab reimbursement liaison, Carey Phillips , patients [employer] Medicare insurance denied request for authorization for inpatient acute rehab . Peer to peer offered at [phone] opt 4.peer to peer needs to be requested by 1200 noon tomorrow, 10/30. Reference no. [id number]. Member ID no. [id number]. Guerline GRACE notified of above. * Consults, [...] high Assessment /Plan Principal Problem: CAD in tangirnaq artery 1. Uncontrolled type 1 diabetes, A1c [...] don't hesitate to call. Augustin Bethea MD [facility] [email or web address] Office phone: [phone] Office fax: [phone] * Post-Procedure Note - Sugar Swanson RN [...] Afebrile. Room air. NSR. Pain treated with Ledgewood. ABX started for patients right leg.Lower dopplers [...] Room air. NSR. Patient pain treated with Ledgewood. Left herman dressing changed x1 due to leaking. Y MIXER * Plan of Care - Roel West LCSW - 10/28/2023 3:40 PM CST Catalogue Maker covering and followed up with request to learn if patient was approved for inpatient rehabilitation/insurance authorization status. SW inquired with Dr. Mya Frederick and awaiting notification. Intake Coordinators are not on-site and not customary to receive notification from insurance on weekend. Y MIXER * Consults, Subsequent - Augustin Bethea MD - 10/28/2023 2:50 PM SPRAY MIXER Endocrine Note Reason for Consult: type 1 [...] THIS IS FOR THE INSULIN PUMP: Continue Dale [employer] 5 insulin pump with Brandcast G6 CGM at home settings: TIME BASAL [...] high Assessment /Plan Principal Problem: CAD in tangirnaq artery 1. Uncontrolled type 1 diabetes, A1c [...] don't hesitate to call. Augustin Bethea MD [facility] [email or web address] Office phone: [phone] Office fax: [phone] Y MIXER Y MIXER * Post-Procedure Note - Basilia John RN - 10/28/2023 7:14 AM SPRAY MIXER Peritoneal Dialysis Treatment Summary: Juvenal Garvin . [...] well. Denied any c/o. PD drsg D&I Y MIXER * Consults, Subsequent - Augustin Bethea MD - 10/27/2023 5:47 PM SPRAY MIXER Endocrine Note Reason for Consult: type 1 [...] THIS IS FOR THE INSULIN PUMP: Continue [employer]305 5 insulin pump with Brandcast G6 CGM at home settings: TIME BASAL [...] high Assessment /Plan Principal Problem: CAD in tangirnaq artery 1. Uncontrolled type 1 diabetes, A1c [...] don't hesitate to call. Augustin Bethea MD [facility] [email or web address] Office phone: [phone] Office fax: [phone] Y MIXER * Plan of Care - Genie Benjamin RN - 10/27/2023 12:55 PM CST [facility] inpatient acute industrial rehabilitation consultant pursuing insurance authorization for rehab when patient medically stable for discharge to rehab. Y MIXER * Post-Procedure Note - Radha Mercado RN [...] Tolerated tx without issues. Effluent clear yellow. Y MIXER * Consults, Subsequent - Augustin Bethea MD - 10/26/2023 6:25 PM SPRAY MIXER Endocrine Note Reason for Consult: type 1 [...] PUMP: Continue Omnipod 5 insulin pump with NextUsercom G6 CGM at home settings: TIME BASAL [...] high Assessment /Plan Principal Problem: CAD in tangirnaq artery 1. Uncontrolled type 1 diabetes, A1c [...] don't hesitate to call. Augustin Bethea MD [facility] [email or web address] Office phone: [phone] Office fax: [phone] Y MIXER * Plan of Care - Manda Solorzano RN - 10/26/2023 12:06 PM CST Per , pt has been accepted to [facility] Rehab (auth pending). Pt will be removed from [facility] schedule and no services provided at this time. Y MIXER * Plan of Care - Jacquelin Veliz MSW - 10/26/2023 10:43 AM CST MEMBER OF TECHNICAL STAFF received message from Michelle with [facility] and they are able to accept Pt. They will start insurance authorization as PA feels that Pt is close to discharge. MEMBER OF TECHNICAL STAFF met with Pt at bedside [facility] for him. Pt states that he is agreeable to discharging to acute rehab when ready for discharge. Y MIXER * Post-Procedure Note - Basilia John RN - 10/26/2023 7:30 AM SPRAY MIXER Peritoneal Dialysis Treatment Summary: Juvenal Garvin Jr. [...] well. Denied any c/o. PD drsg D&I Y MIXER * Plan of Care - Cyndi Persaud RN - 10/25/2023 4:14 PM CST Goals: Clinical Goals for the Shift: VSS. Afebrile. Room air. NSR. Monitor heart rate and rhythm. Manage pain. Manage heparin drip. Monitor PTTs. PD. Walk x3. Ensure safety and comfort. Summary: VSS. Afebrile. Room air. NSR. Pain treated with a one time dose of Ledgewood. Most recent PTT is 72. Heparin drip at 12.7units/kg/hr. Y MIXER * Consults, Subsequent - Augustin Bethea MD - 10/25/2023 11:14 AM SPRAY MIXER Endocrine Note Reason for Consult: type 1 [...] PUMP: Continue Omnipod 5 insulin pump with Brandcast G6 CGM at home settings: TIME BASAL [...] high Assessment /Plan Principal Problem: CAD in tangirnaq artery 1. Uncontrolled type 1 diabetes, A1c [...] don't hesitate to call. Augustin Bethea MD [facility] [email or web address] Office phone: [phone] Office fax: [phone] Y MIXER * Post-Procedure Note - Radha Mercado, LUAN [...] Comments: Tolerated tx well. Effluent clear, yellow. Y MIXER * Plan of Care - Carey Alas [...] 20 SpO2: [96 %-98 %] 96 % Y MIXER * Consults, Subsequent - Augustin Bethea MD - 10/24/2023 11:07 AM SPRAY MIXER Endocrine Note Reason for Consult: type 1 [...] PUMP: Continue Omnipod 5 insulin pump with Brandcast G6 CGM at home settings: TIME BASAL [...] high Assessment /Plan Principal Problem: CAD in tangirnaq artery 1. Uncontrolled type 1 diabetes, A1c [...] don't hesitate to call. Augustin Bethea MD [facility] [facility] [email or web address] Office phone: [phone] Office fax: [phone] Y MIXER * Post-Procedure Note - Radha Mercado RN [...] Tolerated tx without issues. Effluent clear yellow. Y MIXER * Plan of Care - Lucinda Mathews [...] during sleep periods will improve Outcome: Progressing Y MIXER Y MIXER Y MIXER * Plan of Care - Carey Alas [...] 20 SpO2: [95 %-99 %] 95 % Y MIXER * Plan of Care - Genie Benjamin RN - 10/23/2023 12:17 PM CST PT/OT recommending inpatient acute rehab at discharge. Informed patient of above. Patient declined rehab facility list and states he prefers [facility] inpatient acute rehab hospital. Referral sent. Response pending. Y MIXER * ECIN Note - Genie Benjamin RN [...] presents for surgical intervention on 10/14/23 from [facility]. Pt is s/p CABG x 3 (SVG-PDA, SVG-OM, BRICE-LAD) and mechanical AVR on 10/[address] Valero. Pt has history of ESRD on PD, CAD s/p PCI, GA, and DVT on chronic anticoagulation, Type 1 [...] and mobility at baseline. 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 -HK Grooming: Where assessed -- Chair -HK Grooming: Level of assistance -- Minimum Assist Pt exhibiting functionally weak auger machine offbearer strength and fine motor skills with BUEs. [...] -- Moderate assist santa/doff B socks with appeals examiner and sock aid,Minimal assist santa/doff sweatpants with appeals examiner -KB -- Bed Mobility Comments 1 SBA [...] presents for surgical intervention on 10/14/23 from [facility]. Pt is s/p CABG x 3 (SVG-PDA, SVG-OM, BRICE-LAD) and mechanical AVR on 10/[address] Valero. 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 Pt is s/p CABG x 3 (SVG-PDA, SVG-OM, BRICE-LAD) and mechanical AVR on 10/[address] Valero. Pt has history of ESRD on PD, CAD s/p PCI, GA, and DVT on chronic anticoagulation, Type 1 [...] Initials Name Effective Dates SS Nida Starr, OLIVE KNOCKER 06/30/22 - Eliana Joiner, PT 12/05/22 - Gustavo Olivas, PT 04/10/23 - PT Notes 10/21/2023 10:25 AM Progress Notes signed by Gina Mason DPT 10/23/2023 11:53 AM Progress Notes signed by Gustavo Swan, PT , KISS MIXER Eval and Treat Last 72 Hours KISS MIXER Evaluation No documentation. KISS MIXER Treatment No documentation. Clinical Swallow Study No documentation. KISS MIXER Notes Notes from 10/21/23 through 10/23/23 No notes of this type exist for this encounter. Y MIXER * Consults, Subsequent - Augustin Bethea MD - 10/23/2023 10:48 AM SPRAY MIXER Endocrine Note Reason for Consult: type 1 [...] PUMP: Continue Omnipod 5 insulin pump with NextUsercom G6 CGM at home settings: TIME BASAL [...] high Assessment /Plan Principal Problem: CAD in tangirnaq artery 1. Uncontrolled type 1 diabetes, A1c [...] don't hesitate to call. Augustin Bethea MD [facility] [email or web address] Office phone: [phone] Office fax: [phone] Y MIXER * Post-Procedure Note - Radah Mercado RN - 10/23/2023 10:39 AM CST [...] Tolerated tx without issues. Effluent clear, yellow. Y MIXER * Plan of Care - Jessica Rodriguez [...] impaired skin integrity will decrease Outcome: Progressing Y MIXER * Post-Procedure Note - Rayna Be RN - 10/22/2023 12:03 PM SPRAY MIXER Peritoneal Dialysis Treatment Summary: Juvenal Garvin Jr. [...] dwell time. Added dwell time 7 minutes. Y MIXER * Plan of Care - Hermes Savage [...] cough and deep breathing at this time. Y MIXER * Plan of Care - Jessica Rodriguez [...] impaired skin integrity will decrease Outcome: Progressing Y MIXER * Consults, Subsequent - Augustin Bethea MD - 10/21/2023 4:43 PM SPRAY MIXER Endocrine Note Reason for Consult: type 1 [...] high Assessment /Plan Principal Problem: CAD in tangirnaq artery 1. Uncontrolled type 1 diabetes, A1c [...] don't hesitate to call. Augustin Bethea MD [facility] [email or web address] Office phone: [phone] Office fax: [phone] Y MIXER * Plan of Care - Hermes Savage, [...] cough and deep breathing at this time. Y MIXER * Post-Procedure Note - Sugar Swanson RN [...] fibrin. Dr. Martinez notified of all findings. Y MIXER * Plan of Care - Dominique Fuentes RRT - 10/20/2023 8:19 PM CST Problem: Respiratory Goal: Achieves optimal ventilation and oxygenation Outcome: Progressing Positive Expiratory Pressure Therapy Patient educated on goals of PEP therapy. Will continue to monitor patient technique and encourage use of PEP device. Patient educated on effective cough and deep breathing at this time. Y MIXER * Plan of Care - Summer Pradhan [...] except when coughing. Tylenol given. Comfort/safety ensured. Y MIXER * Consults, Subsequent - Augustin Bethea MD - 10/20/2023 3:50 PM SPRAY MIXER Endocrine Note Reason for Consult: type 1 [...] PUMP: Continue Omnipod 5 insulin pump with Brandcast G6 CGM at home settings: TIME BASAL [...] high Assessment /Plan Principal Problem: CAD in tangirnaq artery 1. Uncontrolled type 1 diabetes, A1c [...] don't hesitate to call. Augustin Bethea MD [facility] [email or web address] Office phone: [phone] Office fax: [phone] Y MIXER * Post-Procedure Note - Sugar Swanson RN [...] Dressing c/d/I. Clear yellow effluent with fibrin. Y MIXER * Plan of Care - Hermes Savage [...] to monitor sputum amount, color, and consistency. Y MIXER * Plan of Care - Campos Farmer [...] labs, titrate heparin to therapeutic, pain control Y MIXER * Consults, Subsequent - Augustin Bethea MD - 10/19/2023 7:08 PM SPRAY MIXER Endocrine Note Reason for Consult: type 1 [...] PUMP: Continue Omnipod 5 insulin pump with Brandcast G6 CGM at home settings: TIME BASAL [...] high Assessment /Plan Principal Problem: CAD in tangirnaq artery 1. Uncontrolled type 1 diabetes, A1c [...] don't hesitate to call. Augustin Bethea MD [facility] [email or web address] Office phone: [phone] Office fax: [phone] Y MIXER * Plan of Care - Toña Saha, [...] protocol. Wean FiO2 to maintain SpO2 >92%. Y MIXER * Post-Procedure Note - Sugar Swanson RN [...] Clear yellow effluent with fibrin. MD notified. Y MIXER * Plan of Care - Ken Martell RRT - 10/18/2023 10:25 PM CST NPPV Patient is tolerating non-invasive ventilation well. Mask fits well with minimal leak. No skin break down noted. Will continue to monitor and titrate per MD order. Y MIXER * Provider Query - Dawna Castellanos NP - 10/18/2023 6:36 PM CST The documentation is unclear. Please clarify the 10/17 documentation of NSTEMI. (See Criteria Below). ___ Hx of NSTEMI (Greater than 28 days ago) _x__ Acute NSTEMI occurred at OSH and pt transferred to [facility] for continued care for NSTEMI ___ Other (Specify): Provider Response: Clinical Indicators/Treatment: - Per EPIC: Hx of NSTEMI in June 2022 - Transfer from OSH with CAD and - 10/17 PN: NSTEMI s/p CABG...During hospitalization found to have elevated Troponins prompted cardiology evaluation and LHC significant for multivessel CAD and subsequently also found aortic stenosis. - 10/18 PN : CAD.. Prior GA and multiple PCI.. the patient underwent cardiac cath that showed multivessel disease. - Labs/Notes from OSH not available - Treatment: CABG: References: Fourth [place] Definition of Myocardial Infarction Myocardial Infarction Diagnosis of myocardial infarction requires: Elevated troponin blood test (troponin value above 99th percentile upper reference limit) AND at least one of the following: Symptoms of acute myocardial ischemia (Types 1-5 GA) Clinical evidence of ischemia, as evidenced in an EKG showing new ischemic changes (Type 1, Type 2,Type 3, or Type 4a GA) Development of pathological Q waves (Types 1-5 GA) Imaging evidence of new loss of viable myocardium or new regional wall motion abnormality in a pattern consistent with an ischemic etiology (Types 1-5 GA) Identification of a coronary thrombus by angiography including intracoronary imaging or by autopsy (Type 1 GA only) Angiographic findings consistent with procedural flow-limiting [...] Guidelines for Coding and Reporting, 2019 Fourth [place] Definition of Myocardial Infarction, Scot Uriostegui, et al., Journal of [place] College of Cardiology 2018March 2018, http://www.onlinejacc.org/content/early//j.jacc ..1037?_ga=[email or web address] Fourth [place] Definition Separates GA From Myocardial Injury, Rolly Freeman, [employer], April 15, 2018, [email or web address] [place] definition of myocardial infarction, Joint ESC/ACCF/AHA/WHF Task [...] become part of the patient???s medical record. Y MIXER * Plan of Care - Renetta Keys [...] 2L NC. Pulls 1500 on IS. Occasional COORDINATOR OF HEALTH SERVICES Cough. Insulin gtt continues per orders. Appetite hindered due to nausea and some vomiting this afternoon. Zofran and haldol given. Pt states is better but doesn't want to eat at this time. Will continue to encourage increased activity, IS, Improved appetite, Y MIXER * Post-Procedure Note - Sugar Swanson RN [...] and intact and effluent clear and yellow. Y MIXER * Plan of Care - Ken Martell RRT - 10/18/2023 3:31 AM CST Mechanical Ventilation Patient is seen on full ventilator support. Patient is synchronous with the ventilator at the time.Will continue to monitor all pertinent lab data, chest radiographs and CT scans when available. Will titrate per MD order. Y MIXER * Op Note - Jaqueline Valero MD [...] mm OnX mechanical prosthesis, model #ONXANE, serial #[id number] ) 2. Coronary artery bypass grafting x [...] placement (25 cm) DATE OF PROCEDURE 10/17/2023 FREIGHT BROKER AGENT CEZAR Bernstein ANESTHESIA General Endotracheal Anesthesia ANESTHESIOLOGIST [...] continuous 6-0 Prolene suture. A retrograde hot worker was given, the patient was placed into [...] checked through the bypass grafts with a [employer] Doppler flow probe and each was found [...] Physician) Aditya Correa MD (Primary Care Provider) Y MIXER * Brief Op Note - Jaqueline Valero MD - 10/17/2023 8:47 AM CST Operative Progress Note Surgical Team: Surgeons and Role: * Jaqueline Valero MD - Primary Anesthesiologist: Ayden Alan MD SUPERVISOR PUBLICATIONS PRODUCTION: Ravi Thacker CRNA Interior Systems Carpenter: Chang Stout CCP; Fransisco Ziegler CCP Financial Analysis Manager: Nini Gibbs RN Scrub: Yamilet Bolivar RN; Teresa Dillon ST RNFA: Jessica Frost RN; Carey Weber RN Orientee Financial Analysis Manager: Dee Ibarra RN DATE OF SURGERY : 10/17/2023 Preoperative Diagnosis: Pre-op Diagnosis * Aortic valve stenosis, etiology of cardiac valve disease unspecified [I35.0] * 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 Item Serial No. Turner Machine Operator Lot No. LRB No. Used Action ON-X INTRNL Valve Coronary Aortic Mechanical On X 25mm ONXANE-25 - [id number] - [id number] ON-X INTRNL Valve Coronary Aortic Mechanical On X 25mm ONXANE-25 [id number] On-X Intrnl N/A 1 Implanted Blood/Blood Products Transfused: 1 unit platelets, 2 units FFP, 10 pack cryo, 3 units PRBC Complications: None Condition on Discharge from the operating room was stable Jaqueline Valero MD Date: 10/17/2023 Time: 12:59 PM No Resident involved on case Y MIXER * Post-Procedure Note - Zia Mahoney RN - 10/17/2023 3:38 AM SPRAY MIXER Peritoneal Dialysis Treatment Summary: Juvenal Garvin JrSharath [...] well. Effluent yellow and clear. Dressing c/d/i. Y MIXER * Plan of Care - Lucinda Mathews, FANY - 10/16/2023 9:28 PM CST NPPV- Patient is tolerating non-invasive ventilation well. Mask fits well with minimal leak. No skin break down noted. Will continue to monitor and titrate per MD order. Problem: Obstructive Sleep Apnea (BEN) Goal: Patients ability to maintain adequate ventilation during sleep periods will improve Outcome: Progressing Y MIXER * Plan of Care - Yamilet Lopez [...] Understanding discharge needs will improve Outcome: Progressing Y MIXER * Initial Assessments - Genie Benjamin RN - 10/16/2023 10:46 AM SPRAY MIXER PURNIMA Initial Assessment Interview Note Information Obtained [...] Medicare and IDPA Prescription Coverage: yes Pharmacy: [id number] - [place], [place] - [address] [place] [address] [place] [address] Primary Care Provider: Aditya Correa MD Prior to Admission: Functional Status: Minimal assist with ADLs Primary Caregiver: Self Support System: Children Home Care Services: No Outpatient Services: No Durable Medical Equipment: Cane (single prong) Living Arrangements: Children Type of Residence: Private residence Steps in home?: No steps inside or outside Medication management: Independent (10/13/23 5920) SDOH: Transportation: In the past 12 months, [...] a week How often do you attend sabianism or mormon services?: 1 to 4 times per year Do you belong to any clubs or organizations such as sabianism groups, unions, fraternal [...] Screening Potential discharge needs include: Home Health: senior care (10/16/23 104) Dialysis: Dialysis History Start End Type Center Comments Peritoneal [facility] Dialysis Center Information [facility] Address: 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 Active with [facility] in [place], [place] under the care of Dr. Stephen. [...] Collaboration with patient, MD, direct care nurse, Catalogue Maker, and other members of the health care team to assure needed interventions completed. 2. Return patient to optimal level of self-care post discharge. 3. Phlebotomy Manager will follow for Discharge Planning - interventions as needed 4. Anticipated level of care at discharge 5. Planned Discharge Disposition Genie Benjamin RN Y MIXER * Post-Procedure Note - Jackie Masters RN [...] & intact , Effluent clear & yellow Y MIXER * Plan of Care - Juanito Barrett RRT - 10/15/2023 9:43 PM CST Nocturnal CPAP Patient is tolerating non-invasive ventilation well. Mask fits well with minimal leak. No skin break down noted. Will continue to monitor and titrate per MD order.Oxygen Therapy Patient is being managed on oxygen titration protocol. Wean FiO2 to maintain SpO2 >92%. Y MIXER * Plan of Care - Janett Schulz [...] c/o chest pain, therapeutic on heparin infusion Y MIXER * Post-Procedure Note - Zia Mahoney RN - 10/15/2023 4:44 AM SPRAY MIXER Peritoneal Dialysis Treatment Summary: Juvenal Garvin Jr. [...] well. Effluent yellow and clear. Dressing c/d/I. Y MIXER * Plan of Care - Juanito Barrett RRT - 10/14/2023 9:44 PM CST Nocturnal CPAP Patient is tolerating non-invasive ventilation well. Mask fits well with minimal leak. No skin break down noted. Will continue to monitor and titrate per MD order.Oxygen Therapy Patient is being managed on oxygen titration protocol. Wean FiO2 to maintain SpO2 >92%. Y MIXER * Plan of Care - Janett Schulz [...] pain, heparin gtt subtherapeutic, adjusted trinity MAR Y MIXER * Plan of Care - Ellie Zeng RN - 10/14/2023 1:55 AM CST Goals: Clinical Goals for the Shift: monitor vs tele labs and blood sugars, orientate to unit, promote comfort and safety, manage pain Summary: patient stable throughout shift with no complaints of pain. Blood sugars trending down, patient had RT set up CPAP for sleep. Patient NPO since 0000. 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 ([facility] ([facility]) Aortic stenosis, severe 1 Occurrences starting 10/20/2023 until 04/21/2024 Ambulatory referral to Cardiac Rehab Outpatient Referral Routine S/P CABG x 3 NSTEMI (non-ST elevated myocardial infarction) ([facility]) ([facility]) S/P AVR Expected: 11/07/2023 (Approximate), Expires: 10/23/2024 [...] PERITONEAL DIALYSIS (CCPD) Routine 10/29/2023 12:30 AM SPRAY MIXER POCT GLUCOSE DEVICE Routine 10/28/2023 8:22 PM SPRAY MIXER POCT GLUCOSE DEVICE Routine 10/28/2023 5:24 PM SPRAY MIXER POCT GLUCOSE DEVICE Routine 10/28/2023 12:45 PM SPRAY MIXER POCT GLUCOSE DEVICE Routine 10/28/2023 8:04 AM SPRAY MIXER XR CHEST 1 VIEW IP Routine 10/28/2023 6:00 AM SPRAY MIXER EGFR Routine 10/28/2023 12:34 AM SPRAY MIXER APTT Routine 10/28/2023 12:34 AM SPRAY MIXER PROTIME-INR Routine 10/28/2023 12:34 AM SPRAY MIXER CBC WITHOUT DIFFERENTIAL Routine 10/28/2023 12:34 AM SPRAY MIXER MAGNESIUM Routine 10/28/2023 12:34 AM SPRAY MIXER RENAL FUNCTION PANEL Routine 10/28/2023 12:34 AM SPRAY MIXER CONTINUOUS CYCLIC PERITONEAL DIALYSIS (CCPD) Routine 10/28/2023 12:30 AM SPRAY MIXER POCT GLUCOSE DEVICE Routine 10/27/2023 10:01 PM SPRAY MIXER POCT GLUCOSE DEVICE Routine 10/27/2023 5:48 PM SPRAY MIXER CONTINUOUS CYCLIC PERITONEAL DIALYSIS (CCPD) Routine 10/27/2023 3:23 PM SPRAY MIXER POCT GLUCOSE DEVICE Routine 10/27/2023 11:54 AM SPRAY MIXER T4, FREE Routine 10/27/2023 11:02 AM SPRAY MIXER POCT GLUCOSE DEVICE Routine 10/27/2023 8:28 AM SPRAY MIXER XR CHEST 1 VIEW IP Routine 10/27/2023 6:14 AM SPRAY MIXER OSMOLALITY, BLOOD Routine 10/27/2023 6:02 AM SPRAY MIXER EGFR Routine 10/27/2023 2:30 AM SPRAY MIXER APTT Routine 10/27/2023 2:30 AM SPRAY MIXER PROTIME-INR Routine 10/27/2023 2:30 AM SPRAY MIXER CBC WITHOUT DIFFERENTIAL Routine 10/27/2023 2:30 AM SPRAY MIXER TSH Routine 10/27/2023 2:30 AM SPRAY MIXER MAGNESIUM Routine 10/27/2023 2:30 AM SPRAY MIXER RENAL FUNCTION PANEL Routine 10/27/2023 2:30 AM SPRAY MIXER POCT GLUCOSE DEVICE Routine 10/26/2023 11:15 PM SPRAY MIXER POCT GLUCOSE DEVICE Routine 10/26/2023 4:53 PM SPRAY MIXER POCT GLUCOSE DEVICE Routine 10/26/2023 11:57 AM SPRAY MIXER PEP THERAPY Routine 10/26/2023 8:00 AM SPRAY MIXER POCT GLUCOSE DEVICE Routine 10/26/2023 8:00 AM SPRAY MIXER XR CHEST 1 VIEW IP Routine 10/26/2023 5:09 AM SPRAY MIXER EGFR Routine 10/26/2023 2:29 AM SPRAY MIXER APTT Routine 10/26/2023 2:29 AM SPRAY MIXER PROTIME-INR Routine 10/26/2023 2:29 AM SPRAY MIXER CBC WITHOUT DIFFERENTIAL Routine 10/26/2023 2:29 AM SPRAY MIXER MAGNESIUM Routine 10/26/2023 2:29 AM SPRAY MIXER RENAL FUNCTION PANEL Routine 10/26/2023 2:29 AM SPRAY MIXER APTT Timed 10/25/2023 9:15 PM SPRAY MIXER POCT GLUCOSE DEVICE Routine 10/25/2023 9:14 PM SPRAY MIXER POCT GLUCOSE DEVICE Routine 10/25/2023 4:51 PM SPRAY MIXER APTT Timed 10/25/2023 2:48 PM SPRAY MIXER POCT GLUCOSE DEVICE Routine 10/25/2023 11:15 AM SPRAY MIXER POCT GLUCOSE DEVICE Routine 10/25/2023 9:49 AM SPRAY MIXER POCT GLUCOSE DEVICE Routine 10/25/2023 7:36 AM SPRAY MIXER XR CHEST 1 VIEW IP Routine 10/25/2023 6:52 AM SPRAY MIXER APTT Routine 10/25/2023 6:48 AM SPRAY MIXER POCT GLUCOSE DEVICE Routine 10/25/2023 4:23 AM SPRAY MIXER EGFR Routine 10/25/2023 12:34 AM SPRAY MIXER CBC WITHOUT DIFFERENTIAL Routine 10/25/2023 12:34 AM SPRAY MIXER MAGNESIUM Routine 10/25/2023 12:34 AM SPRAY MIXER RENAL FUNCTION PANEL Routine 10/25/2023 12:34 AM SPRAY MIXER APTT Timed 10/25/2023 12:33 AM SPRAY MIXER PROTIME-INR Timed 10/25/2023 12:33 AM SPRAY MIXER CONTINUOUS CYCLIC PERITONEAL DIALYSIS (CCPD) Routine 10/25/2023 12:30 AM SPRAY MIXER POCT GLUCOSE DEVICE Routine 10/24/2023 9:51 PM SPRAY MIXER APTT STAT 10/24/2023 5:15 PM SPRAY MIXER POCT GLUCOSE DEVICE Routine 10/24/2023 4:42 PM SPRAY MIXER POCT GLUCOSE DEVICE Routine 10/24/2023 12:17 PM SPRAY MIXER POCT GLUCOSE DEVICE Routine 10/24/2023 7:44 AM SPRAY MIXER XR CHEST 1 VIEW IP Routine 10/24/2023 5:54 AM SPRAY MIXER EGFR Routine 10/24/2023 1:03 AM SPRAY MIXER PROTIME-INR Routine 10/24/2023 1:03 AM SPRAY MIXER CBC WITHOUT DIFFERENTIAL Routine 10/24/2023 1:03 AM SPRAY MIXER MAGNESIUM Routine 10/24/2023 1:03 AM SPRAY MIXER RENAL FUNCTION PANEL Routine 10/24/2023 1:03 AM SPRAY MIXER CONTINUOUS CYCLIC PERITONEAL DIALYSIS (CCPD) Routine 10/24/2023 12:30 AM SPRAY MIXER POCT GLUCOSE DEVICE Routine 10/23/2023 11:14 PM SPRAY MIXER POCT GLUCOSE DEVICE Routine 10/23/2023 10:43 PM SPRAY MIXER PEP THERAPY Routine 10/23/2023 6:00 PM SPRAY MIXER POCT GLUCOSE DEVICE Routine 10/23/2023 5:12 PM SPRAY MIXER PEP THERAPY Routine 10/23/2023 1:00 PM SPRAY MIXER POCT GLUCOSE DEVICE Routine 10/23/2023 12:08 PM SPRAY MIXER PEP THERAPY Routine 10/23/2023 8:00 AM SPRAY MIXER POCT GLUCOSE DEVICE Routine 10/23/2023 7:54 AM SPRAY MIXER XR CHEST 1 VIEW IP Routine 10/23/2023 6:24 AM SPRAY MIXER EGFR Routine 10/23/2023 1:53 AM SPRAY MIXER PROTIME-INR Routine 10/23/2023 1:53 AM SPRAY MIXER CBC WITHOUT DIFFERENTIAL Routine 10/23/2023 1:53 AM SPRAY MIXER MAGNESIUM Routine 10/23/2023 1:53 AM SPRAY MIXER RENAL FUNCTION PANEL Routine 10/23/2023 1:53 AM SPRAY MIXER CONTINUOUS CYCLIC PERITONEAL DIALYSIS (CCPD) Routine 10/23/2023 12:30 AM SPRAY MIXER POCT GLUCOSE DEVICE Routine 10/22/2023 11:55 PM SPRAY MIXER PEP THERAPY Routine 10/22/2023 10:00 PM SPRAY MIXER POCT GLUCOSE DEVICE Routine 10/22/2023 9:12 PM SPRAY MIXER PEP THERAPY Routine 10/22/2023 6:00 PM SPRAY MIXER POCT GLUCOSE DEVICE Routine 10/22/2023 5:22 PM SPRAY MIXER PEP THERAPY Routine 10/22/2023 3:07 PM SPRAY MIXER PEP THERAPY Routine 10/22/2023 3:07 PM SPRAY MIXER PEP THERAPY Routine 10/22/2023 3:07 PM SPRAY MIXER PEP THERAPY Routine 10/22/2023 3:07 PM SPRAY MIXER POCT GLUCOSE DEVICE Routine 10/22/2023 12:49 PM SPRAY MIXER POCT GLUCOSE DEVICE Routine 10/22/2023 8:12 AM SPRAY MIXER XR CHEST 1 VIEW IP Routine 10/22/2023 6:38 AM SPRAY MIXER EGFR Routine 10/22/2023 12:31 AM SPRAY MIXER PROTIME-INR Routine 10/22/2023 12:31 AM SPRAY MIXER CBC WITHOUT DIFFERENTIAL Routine 10/22/2023 12:31 AM SPRAY MIXER MAGNESIUM Routine 10/22/2023 12:31 AM SPRAY MIXER RENAL FUNCTION PANEL Routine 10/22/2023 12:31 AM SPRAY MIXER CONTINUOUS CYCLIC PERITONEAL DIALYSIS (CCPD) Routine 10/22/2023 12:30 AM SPRAY MIXER POCT GLUCOSE DEVICE Routine 10/21/2023 9:31 PM SPRAY MIXER POCT GLUCOSE DEVICE Routine 10/21/2023 5:16 PM SPRAY MIXER POCT GLUCOSE DEVICE Routine 10/21/2023 12:29 PM SPRAY MIXER POCT GLUCOSE DEVICE Routine 10/21/2023 8:06 AM SPRAY MIXER XR CHEST 1 VIEW IP Routine 10/21/2023 6:51 AM SPRAY MIXER ECG 12-LEAD Routine 10/21/2023 4:39 AM SPRAY MIXER EGFR Routine 10/21/2023 1:40 AM SPRAY MIXER PROTIME-INR Routine 10/21/2023 1:40 AM SPRAY MIXER CBC WITHOUT DIFFERENTIAL Routine 10/21/2023 1:40 AM SPRAY MIXER MAGNESIUM Routine 10/21/2023 1:40 AM SPRAY MIXER RENAL FUNCTION PANEL Routine 10/21/2023 1:40 AM SPRAY MIXER CONTINUOUS CYCLIC PERITONEAL DIALYSIS (CCPD) Routine 10/21/2023 12:31 AM SPRAY MIXER POCT GLUCOSE DEVICE Routine 10/20/2023 9:24 PM SPRAY MIXER POCT GLUCOSE DEVICE Routine 10/20/2023 5:24 PM SPRAY MIXER CONTINUOUS CYCLIC PERITONEAL DIALYSIS (CCPD) Routine 10/20/2023 3:51 PM SPRAY MIXER CRITICAL CARE Routine 10/20/2023 12:45 PM SPRAY MIXER 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tangir[place]q artery of tangirnaq heart with stable angina pectoris (CMS/HCC) (HCC) POCT GLUCOSE DEVICE Routine 10/20/2023 11:47 AM SPRAY MIXER POCT GLUCOSE DEVICE Routine 10/20/2023 10:09 AM SPRAY MIXER POCT GLUCOSE DEVICE Routine 10/20/2023 9:15 AM SPRAY MIXER POCT GLUCOSE DEVICE Routine 10/20/2023 7:23 AM SPRAY MIXER XR CHEST 1 VIEW IP Routine 10/20/2023 6:37 AM SPRAY MIXER POCT GLUCOSE DEVICE Routine 10/20/2023 6:12 AM SPRAY MIXER POCT GLUCOSE DEVICE Routine 10/20/2023 3:57 AM SPRAY MIXER OXYHEMOGLOBIN, CENTRAL VENOUS Timed 10/20/2023 3:22 AM SPRAY MIXER APTT STAT 10/20/2023 3:22 AM SPRAY MIXER POCT GLUCOSE DEVICE Routine 10/20/2023 3:21 AM SPRAY MIXER POCT GLUCOSE DEVICE Routine 10/20/2023 2:10 AM SPRAY MIXER POCT GLUCOSE DEVICE Routine 10/20/2023 12:57 AM SPRAY MIXER OXYHEMOGLOBIN, CENTRAL VENOUS Routine 10/20/2023 12:21 AM SPRAY MIXER EGFR Routine 10/20/2023 12:21 AM SPRAY MIXER CALCIUM, IONIZED Routine 10/20/2023 12:21 AM SPRAY MIXER PROTIME-INR Routine 10/20/2023 12:21 AM SPRAY MIXER CBC WITHOUT DIFFERENTIAL Routine 10/20/2023 12:21 AM SPRAY MIXER MAGNESIUM Routine 10/20/2023 12:21 AM SPRAY MIXER RENAL FUNCTION PANEL Routine 10/20/2023 12:21 AM SPRAY MIXER POCT GLUCOSE DEVICE Routine 10/20/2023 12:20 AM SPRAY MIXER POCT GLUCOSE DEVICE Routine 10/19/2023 11:03 PM SPRAY MIXER POCT GLUCOSE DEVICE Routine 10/19/2023 10:01 PM SPRAY MIXER APTT STAT 10/19/2023 9:47 PM SPRAY MIXER POCT GLUCOSE DEVICE Routine 10/19/2023 9:15 PM SPRAY MIXER POCT GLUCOSE DEVICE Routine 10/19/2023 8:12 PM SPRAY MIXER POCT GLUCOSE DEVICE Routine 10/19/2023 6:13 PM SPRAY MIXER POCT GLUCOSE DEVICE Routine 10/19/2023 5:24 PM SPRAY MIXER XR CHEST 1 VIEW ED Urgent/IP Urgent 10/19/2023 4:29 PM SPRAY MIXER POCT GLUCOSE DEVICE Routine 10/19/2023 4:25 PM SPRAY MIXER ECG 12-LEAD STAT 10/19/2023 3:21 PM SPRAY MIXER XR KUB IP Routine 10/19/2023 2:49 PM SPRAY MIXER APTT STAT 10/19/2023 2:44 PM SPRAY MIXER LIPASE Routine 10/19/2023 2:44 PM SPRAY MIXER AMYLASE Routine 10/19/2023 2:44 PM SPRAY MIXER HEPATIC FUNCTION PANEL Routine 10/19/2023 2:44 PM SPRAY MIXER POCT GLUCOSE DEVICE Routine 10/19/2023 2:40 PM SPRAY MIXER POCT GLUCOSE DEVICE Routine 10/19/2023 12:25 PM SPRAY MIXER POCT GLUCOSE DEVICE Routine 10/19/2023 11:12 AM SPRAY MIXER POCT GLUCOSE DEVICE Routine 10/19/2023 10:54 AM SPRAY MIXER POCT GLUCOSE DEVICE Routine 10/19/2023 9:04 AM SPRAY MIXER OXYHEMOGLOBIN, CENTRAL VENOUS STAT 10/19/2023 8:58 AM SPRAY MIXER APTT STAT 10/19/2023 8:58 AM SPRAY MIXER POCT GLUCOSE DEVICE Routine 10/19/2023 7:19 AM SPRAY MIXER OXYHEMOGLOBIN, CENTRAL VENOUS STAT 10/19/2023 7:09 AM SPRAY MIXER LACTATE STAT 10/19/2023 7:09 AM SPRAY MIXER CRITICAL CARE Routine 10/19/2023 6:57 AM SPRAY MIXER CAD in tangirnaq artery POCT GLUCOSE DEVICE Routine 10/19/2023 6:57 AM SPRAY MIXER XR CHEST 1 VIEW IP Routine 10/19/2023 6:27 AM SPRAY MIXER POCT GLUCOSE DEVICE Routine 10/19/2023 6:06 AM SPRAY MIXER POCT GLUCOSE DEVICE Routine 10/19/2023 5:10 AM SPRAY MIXER APTT STAT 10/19/2023 4:14 AM SPRAY MIXER POCT GLUCOSE DEVICE Routine 10/19/2023 4:03 AM SPRAY MIXER POCT GLUCOSE DEVICE Routine 10/19/2023 2:56 AM SPRAY MIXER OXYHEMOGLOBIN, CENTRAL VENOUS Routine 10/19/2023 2:11 AM SPRAY MIXER EGFR Routine 10/19/2023 2:11 AM SPRAY MIXER CALCIUM, IONIZED Routine 10/19/2023 2:11 AM SPRAY MIXER PROTIME-INR Routine 10/19/2023 2:11 AM SPRAY MIXER CBC WITHOUT DIFFERENTIAL Routine 10/19/2023 2:11 AM SPRAY MIXER MAGNESIUM Routine 10/19/2023 2:11 AM SPRAY MIXER BLOOD GAS, ARTERIAL Routine 10/19/2023 2:11 AM SPRAY MIXER RENAL FUNCTION PANEL Routine 10/19/2023 2:11 AM SPRAY MIXER POCT GLUCOSE DEVICE Routine 10/19/2023 2:07 AM SPRAY MIXER CONTINUOUS CYCLIC PERITONEAL DIALYSIS (CCPD) Routine 10/19/2023 12:31 AM SPRAY MIXER POCT GLUCOSE DEVICE Routine 10/19/2023 12:01 AM SPRAY MIXER POCT GLUCOSE DEVICE Routine 10/18/2023 11:03 PM SPRAY MIXER POCT GLUCOSE DEVICE Routine 10/18/2023 10:11 PM SPRAY MIXER APTT STAT 10/18/2023 9:21 PM SPRAY MIXER POCT GLUCOSE DEVICE Routine 10/18/2023 9:19 PM SPRAY MIXER POCT GLUCOSE DEVICE Routine 10/18/2023 8:37 PM SPRAY MIXER BLOOD GAS, ARTERIAL STAT 10/18/2023 8:34 PM SPRAY MIXER CRITICAL CARE Routine 10/18/2023 6:49 PM SPRAY MIXER CAD in tangirnaq artery POCT GLUCOSE DEVICE Routine 10/18/2023 6:38 PM SPRAY MIXER POCT GLUCOSE DEVICE Routine 10/18/2023 5:45 PM SPRAY MIXER XR KUB IP Routine 10/18/2023 5:42 PM SPRAY MIXER POCT GLUCOSE DEVICE Routine 10/18/2023 4:47 PM SPRAY MIXER APTT Timed 10/18/2023 2:55 PM SPRAY MIXER POCT GLUCOSE DEVICE Routine 10/18/2023 2:52 PM SPRAY MIXER POCT GLUCOSE DEVICE Routine 10/18/2023 1:53 PM SPRAY MIXER POCT GLUCOSE DEVICE Routine 10/18/2023 12:48 PM SPRAY MIXER POCT GLUCOSE DEVICE Routine 10/18/2023 12:00 PM SPRAY MIXER POCT GLUCOSE DEVICE Routine 10/18/2023 10:57 AM SPRAY MIXER POCT GLUCOSE DEVICE Routine 10/18/2023 9:52 AM SPRAY MIXER POCT GLUCOSE DEVICE Routine 10/18/2023 8:46 AM SPRAY MIXER POCT GLUCOSE DEVICE Routine 10/18/2023 7:58 AM SPRAY MIXER CRITICAL CARE Routine 10/18/2023 7:27 AM SPRAY MIXER CAD in tangirnaq artery POCT GLUCOSE DEVICE Routine 10/18/2023 7:02 AM SPRAY MIXER POCT GLUCOSE DEVICE Routine 10/18/2023 6:04 AM SPRAY MIXER XR CHEST 1 VIEW IP Routine 10/18/2023 5:38 AM SPRAY MIXER POCT GLUCOSE DEVICE Routine 10/18/2023 5:04 AM SPRAY MIXER POCT GLUCOSE DEVICE Routine 10/18/2023 4:03 AM SPRAY MIXER POCT GLUCOSE DEVICE Routine 10/18/2023 3:04 AM SPRAY MIXER POCT GLUCOSE DEVICE Routine 10/18/2023 1:57 AM SPRAY MIXER EGFR Routine 10/18/2023 1:54 AM SPRAY MIXER CALCIUM, IONIZED Routine 10/18/2023 1:54 AM SPRAY MIXER PROTIME-INR Routine 10/18/2023 1:54 AM SPRAY MIXER FIBRINOGEN Routine 10/18/2023 1:54 AM SPRAY MIXER CBC WITHOUT DIFFERENTIAL Routine 10/18/2023 1:54 AM SPRAY MIXER MAGNESIUM Routine 10/18/2023 1:54 AM SPRAY MIXER BLOOD GAS, ARTERIAL STAT 10/18/2023 1:54 AM SPRAY MIXER RENAL FUNCTION PANEL Routine 10/18/2023 1:54 AM SPRAY MIXER POCT GLUCOSE DEVICE Routine 10/18/2023 12:57 AM SPRAY MIXER CONTINUOUS CYCLIC PERITONEAL DIALYSIS (CCPD) Routine 10/18/2023 12:31 AM SPRAY MIXER POCT GLUCOSE DEVICE Routine 10/18/2023 12:04 AM SPRAY MIXER POCT GLUCOSE DEVICE Routine 10/17/2023 11:00 PM SPRAY MIXER BLOOD GAS, ARTERIAL STAT 10/17/2023 10:56 PM SPRAY MIXER LACTATE STAT 10/17/2023 10:55 PM SPRAY MIXER DIFFERENTIAL AUTO STAT 10/17/2023 10:55 PM SPRAY MIXER CALCIUM, IONIZED STAT 10/17/2023 10:55 PM SPRAY MIXER CBC WITH AUTO DIFFERENTIAL STAT 10/17/2023 10:55 PM SPRAY MIXER POCT GLUCOSE DEVICE Routine 10/17/2023 10:19 PM SPRAY MIXER POCT GLUCOSE DEVICE Routine 10/17/2023 9:00 PM SPRAY MIXER POCT GLUCOSE DEVICE Routine 10/17/2023 8:07 PM SPRAY MIXER POCT GLUCOSE DEVICE Routine 10/17/2023 7:18 PM SPRAY MIXER TRANSFUSE RED BLOOD CELLS Timed 10/17/2023 7:13 PM SPRAY MIXER CRITICAL CARE Routine 10/17/2023 6:42 PM SPRAY MIXER CAD in tangir[place]q artery PREPARE RBC STAT 10/17/2023 6:34 PM SPRAY MIXER POTASSIUM LEVEL STAT 10/17/2023 6:14 PM SPRAY MIXER APTT STAT 10/17/2023 6:12 PM SPRAY MIXER PROTIME-INR STAT 10/17/2023 6:12 PM SPRAY MIXER FIBRINOGEN STAT 10/17/2023 6:12 PM SPRAY MIXER CBC WITHOUT DIFFERENTIAL STAT 10/17/2023 6:12 PM SPRAY MIXER BLOOD GAS, ARTERIAL STAT 10/17/2023 6:12 PM SPRAY MIXER POCT GLUCOSE DEVICE Routine 10/17/2023 6:11 PM SPRAY MIXER TRANSFUSE PLASMA Timed 10/17/2023 5:25 PM SPRAY MIXER PREPARE PLASMA STAT 10/17/2023 5:09 PM SPRAY MIXER POCT GLUCOSE DEVICE Routine 10/17/2023 4:50 PM SPRAY MIXER APTT STAT 10/17/2023 4:32 PM SPRAY MIXER PROTIME-INR STAT 10/17/2023 4:32 PM SPRAY MIXER FIBRINOGEN STAT 10/17/2023 4:32 PM SPRAY MIXER CBC WITHOUT DIFFERENTIAL Routine 10/17/2023 4:32 PM SPRAY MIXER BLOOD GAS, ARTERIAL STAT 10/17/2023 4:32 PM SPRAY MIXER POCT GLUCOSE DEVICE Routine 10/17/2023 3:51 PM SPRAY MIXER TRANSFUSE PLASMA Timed 10/17/2023 3:43 PM SPRAY MIXER TRANSFUSE RED BLOOD CELLS Timed 10/17/2023 3:38 PM SPRAY MIXER PREPARE PLASMA STAT 10/17/2023 3:32 PM SPRAY MIXER PREPARE RBC STAT 10/17/2023 3:32 PM SPRAY MIXER POCT GLUCOSE DEVICE Routine 10/17/2023 2:34 PM SPRAY MIXER XR CHEST 1 VIEW ED Urgent/IP Urgent 10/17/2023 1:49 PM SPRAY MIXER CRITICAL CARE Routine 10/17/2023 1:44 PM SPRAY MIXER LACTATE STAT 10/17/2023 1:27 PM SPRAY MIXER EGFR STAT 10/17/2023 1:27 PM SPRAY MIXER CALCIUM, IONIZED STAT 10/17/2023 1:27 PM SPRAY MIXER APTT STAT 10/17/2023 1:27 PM SPRAY MIXER PROTIME-INR STAT 10/17/2023 1:27 PM SPRAY MIXER FIBRINOGEN STAT 10/17/2023 1:27 PM SPRAY MIXER CBC WITHOUT DIFFERENTIAL STAT 10/17/2023 1:27 PM SPRAY MIXER PHOSPHORUS STAT 10/17/2023 1:27 PM SPRAY MIXER MAGNESIUM STAT 10/17/2023 1:27 PM SPRAY MIXER BLOOD GAS, ARTERIAL STAT 10/17/2023 1:27 PM SPRAY MIXER BASIC METABOLIC PANEL STAT 10/17/2023 1:27 PM SPRAY MIXER POCT GLUCOSE DEVICE Routine 10/17/2023 1:25 PM SPRAY MIXER POCT ACTIVATED CLOTTING TIME, HIGH RANGE Routine 10/17/2023 12:26 PM SPRAY MIXER POC BLOOD GAS AND CHEMISTRIES, ARTERIAL Routine 10/17/2023 12:26 PM SPRAY MIXER TRANSFUSE PLATELETS Timed 10/17/2023 12:24 PM SPRAY MIXER PREPARE RBC STAT 10/17/2023 12:11 PM SPRAY MIXER TRANSFUSE RED BLOOD CELLS Timed 10/17/2023 12:09 PM SPRAY MIXER TRANSFUSE CRYOPRECIPITATE (POOLED UNITS) Timed 10/17/2023 12:05 PM SPRAY MIXER TRANSFUSE CRYOPRECIPITATE (POOLED UNITS) Timed 10/17/2023 12:04 PM SPRAY MIXER TRANSFUSE PLASMA Timed 10/17/2023 12:03 PM SPRAY MIXER TRANSFUSE PLASMA Timed 10/17/2023 12:03 PM SPRAY MIXER POC BLOOD GAS AND CHEMISTRIES, ARTERIAL Routine 10/17/2023 11:51 AM SPRAY MIXER POCT ACTIVATED CLOTTING TIME, HIGH RANGE Routine 10/17/2023 11:50 AM SPRAY MIXER POCT ACTIVATED CLOTTING TIME, HIGH RANGE Routine 10/17/2023 11:22 AM SPRAY MIXER POC BLOOD GAS AND CHEMISTRIES, ARTERIAL Routine 10/17/2023 11:20 AM SPRAY MIXER POCT ACTIVATED CLOTTING TIME, HIGH RANGE Routine 10/17/2023 11:05 AM SPRAY MIXER POCT ACTIVATED CLOTTING TIME, HIGH RANGE Routine 10/17/2023 10:53 AM SPRAY MIXER POCT ACTIVATED CLOTTING TIME, HIGH RANGE Routine 10/17/2023 10:38 AM SPRAY MIXER POC BLOOD GAS AND CHEMISTRIES, ARTERIAL Routine 10/17/2023 10:38 AM SPRAY MIXER POCT ACTIVATED CLOTTING TIME, HIGH RANGE Routine 10/17/2023 10:24 AM SPRAY MIXER POC BLOOD GAS AND CHEMISTRIES, VENOUS Routine 10/17/2023 10:21 AM SPRAY MIXER POCT ACTIVATED CLOTTING TIME, HIGH RANGE Routine 10/17/2023 10:12 AM SPRAY MIXER POC BLOOD GAS AND CHEMISTRIES, ARTERIAL Routine 10/17/2023 10:11 AM SPRAY MIXER POC BLOOD GAS AND CHEMISTRIES, ARTERIAL Routine 10/17/2023 9:47 AM SPRAY MIXER POCT ACTIVATED CLOTTING TIME, HIGH RANGE Routine 10/17/2023 9:44 AM SPRAY MIXER PREPARE PLATELETS STAT 10/17/2023 9:12 AM SPRAY MIXER PREPARE PLASMA STAT 10/17/2023 9:12 AM SPRAY MIXER PREPARE CRYOPRECIPITATE (POOLED UNITS) STAT 10/17/2023 9:12 AM SPRAY MIXER POCT ACTIVATED CLOTTING TIME, HIGH RANGE Routine 10/17/2023 8:19 AM SPRAY MIXER REPLACEMENT AORTIC VALVE 10/17/2023 8:03 AM SPRAY MIXER Aortic valve stenosis, etiology of cardiac valve disease unspecified 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 CORONARY ARTERY BYPASS GRAFT 10/17/2023 8:03 AM SPRAY MIXER Aortic valve stenosis, etiology of cardiac valve disease unspecified 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 POCT GLUCOSE DEVICE Routine 10/17/2023 7:47 AM SPRAY MIXER POCT GLUCOSE DEVICE Routine 10/17/2023 5:50 AM SPRAY MIXER US CAROTIDS DUPLEX BILATERAL IP Routine 10/17/2023 5:10 AM SPRAY MIXER POCT GLUCOSE DEVICE Routine 10/17/2023 2:29 AM SPRAY MIXER POCT GLUCOSE DEVICE Routine 10/17/2023 12:51 AM SPRAY MIXER CONTINUOUS CYCLIC PERITONEAL DIALYSIS (CCPD) Routine 10/17/2023 12:31 AM SPRAY MIXER DIFFERENTIAL AUTO Routine 10/17/2023 12:29 AM SPRAY MIXER CBC WITH AUTO DIFFERENTIAL Routine 10/17/2023 12:29 AM SPRAY MIXER APTT Routine 10/17/2023 12:29 AM SPRAY MIXER TYPE AND SCREEN STAT 10/16/2023 7:51 PM SPRAY MIXER POCT GLUCOSE DEVICE Routine 10/16/2023 7:49 PM SPRAY MIXER POCT GLUCOSE DEVICE Routine 10/16/2023 5:35 PM SPRAY MIXER TRANSTHORACIC ECHO (TTE) COMPLETE W DOPPLER/CF W CONTRAST Routine 10/16/2023 4:47 PM SPRAY MIXER APTT Routine 10/16/2023 3:50 PM SPRAY MIXER LIPID PANEL Routine 10/16/2023 3:44 PM SPRAY MIXER CONTINUOUS CYCLIC PERITONEAL DIALYSIS (CCPD) Routine 10/16/2023 3:33 PM SPRAY MIXER HEMOGLOBIN A1C Routine 10/16/2023 3:27 PM SPRAY MIXER XR CHEST PA LATERAL 2 VIEWS ED Urgent/IP Urgent 10/16/2023 3:12 PM SPRAY MIXER ECG 12-LEAD Routine 10/16/2023 2:17 PM SPRAY MIXER PREPARE RBC STAT 10/16/2023 2:04 PM SPRAY MIXER POCT GLUCOSE DEVICE Routine 10/16/2023 12:22 PM SPRAY MIXER POCT GLUCOSE DEVICE Routine 10/16/2023 8:11 AM SPRAY MIXER POCT GLUCOSE DEVICE Routine 10/16/2023 4:48 AM SPRAY MIXER POCT GLUCOSE DEVICE Routine 10/16/2023 12:37 AM SPRAY MIXER DIFFERENTIAL AUTO Routine 10/16/2023 12:31 AM SPRAY MIXER CBC WITH AUTO DIFFERENTIAL Routine 10/16/2023 12:31 AM SPRAY MIXER APTT Routine 10/16/2023 12:31 AM SPRAY MIXER B CHECK SAMPLE STAT 10/16/2023 12:27 AM SPRAY MIXER POCT GLUCOSE DEVICE Routine 10/15/2023 11:20 PM SPRAY MIXER POCT GLUCOSE DEVICE Routine 10/15/2023 11:01 PM SPRAY MIXER POCT GLUCOSE DEVICE Routine 10/15/2023 10:45 PM SPRAY MIXER POCT GLUCOSE DEVICE Routine 10/15/2023 10:26 PM SPRAY MIXER POCT GLUCOSE DEVICE Routine 10/15/2023 8:12 PM SPRAY MIXER POCT GLUCOSE DEVICE Routine 10/15/2023 5:10 PM SPRAY MIXER POCT GLUCOSE DEVICE Routine 10/15/2023 12:13 PM SPRAY MIXER APTT Routine 10/15/2023 11:[address] CHEST WO CONTRAST IP Routine 10/15/2023 11:00 AM SPRAY MIXER POCT GLUCOSE DEVICE Routine 10/15/2023 7:56 AM SPRAY MIXER POCT GLUCOSE DEVICE Routine 10/15/2023 5:34 AM SPRAY MIXER POCT GLUCOSE DEVICE Routine 10/15/2023 4:35 AM SPRAY MIXER APTT STAT 10/15/2023 4:27 AM SPRAY MIXER POCT GLUCOSE DEVICE Routine 10/15/2023 1:30 AM SPRAY MIXER EGFR Routine 10/15/2023 1:06 AM SPRAY MIXER DIFFERENTIAL AUTO Routine 10/15/2023 1:06 AM SPRAY MIXER IRON PROFILE W/ IBC Routine 10/15/2023 1:06 AM SPRAY MIXER CBC WITH AUTO DIFFERENTIAL Routine 10/15/2023 1:06 AM SPRAY MIXER APTT Routine 10/15/2023 1:06 AM SPRAY MIXER FERRITIN Routine 10/15/2023 1:06 AM SPRAY MIXER RENAL FUNCTION PANEL Routine 10/15/2023 1:06 AM SPRAY MIXER CONTINUOUS CYCLIC PERITONEAL DIALYSIS (CCPD) Routine 10/15/2023 12:31 AM SPRAY MIXER APTT Timed 10/14/2023 8:41 PM SPRAY MIXER POCT GLUCOSE DEVICE Routine 10/14/2023 8:24 PM SPRAY MIXER POCT GLUCOSE DEVICE Routine 10/14/2023 5:28 PM SPRAY MIXER CONTINUOUS CYCLIC PERITONEAL DIALYSIS (CCPD) Routine 10/14/2023 3:44 PM SPRAY MIXER APTT Timed 10/14/2023 2:39 PM SPRAY MIXER POCT GLUCOSE DEVICE Routine 10/14/2023 12:15 PM SPRAY MIXER POCT GLUCOSE DEVICE Routine 10/14/2023 11:06 AM SPRAY MIXER POCT GLUCOSE DEVICE Routine 10/14/2023 8:34 AM SPRAY MIXER POCT GLUCOSE DEVICE Routine 10/14/2023 5:56 AM SPRAY MIXER EGFR STAT 10/14/2023 5:53 AM SPRAY MIXER APTT STAT 10/14/2023 5:53 AM SPRAY MIXER BASIC METABOLIC PANEL STAT 10/14/2023 5:53 AM SPRAY MIXER POCT GLUCOSE DEVICE Routine 10/14/2023 3:58 AM SPRAY MIXER POCT GLUCOSE DEVICE Routine 10/14/2023 3:04 AM SPRAY MIXER POCT GLUCOSE DEVICE Routine 10/14/2023 2:05 AM SPRAY MIXER EGFR STAT 10/14/2023 1:04 AM SPRAY MIXER DIFFERENTIAL AUTO STAT 10/14/2023 1:04 AM SPRAY MIXER CBC WITH AUTO DIFFERENTIAL STAT 10/14/2023 1:04 AM SPRAY MIXER APTT STAT 10/14/2023 1:04 AM SPRAY MIXER PROTIME-INR STAT 10/14/2023 1:04 AM SPRAY MIXER COMPREHENSIVE METABOLIC PANEL STAT 10/14/2023 1:04 AM SPRAY MIXER POCT GLUCOSE DEVICE Routine 10/13/2023 11:25 PM SPRAY MIXER documented in this encounter Results * (ABNORMAL) [...] ORDERABLES - APRIL CE Final Result [facility] [address] Department [place] [address] * (ABNORMAL) Protime-INR (11/03/2023 11:43 AM CDT) PT 21.9(H) 10.3 - 13.7 sec INR 1.92(H) 0.90 - 1.20 [facility] Comment: Interpretive data Oral anticoagulant therapeutic ranges: Venous thromboembolism prophylaxis or treatment: 2.0-3.0 CARDIOLOGY Standard range: 2.0-3.0 High-intensity range: 2.5-3.5 Refer to indication-specific guidelines for appropriate target ranges for prosthetic heart valve replacement. Current interpretive data was last revised on 2019. Blood 11/03/2023 11:4 3 AM CDT 11/03/2023 12:58 PM CDT [facility] BLOOD ORDERABLES Final R esult Performing Organization Address [facility] Co de Phone Number [facility] [address] [place] [address] * (ABNORMAL) aPTT (11/03/2023 11:43 AM CDT) [...] Result Performing Organization Address [facility] Co de Phone Number [facility] [address] [place] [address] * (ABNORMAL) POCT glucose (11/03/2023 11:38 AM [...] APRIL CE Final Result Performing Organization Address [facility] Co de Phone Number [facility] [address] [place] [address] * (ABNORMAL) POCT glucose (11/03/2023 8:05 AM [...] ORDERABLES - APRIL CE Final Result [facility] [id number] Department [place] [address] * eGFR (11/03/2023 4:41 AM CDT) Pathologist [facility] eGFR 7 mL/min/1. 73 m2 Comment: Interpretive [...] CDT 11/03/2023 4:41 AM CDT Byron Olvera COORDINATOR OF HEALTH SERVICES LAB BLOOD ORDERABLES Fi nal Result Performing Organization Address [facility] Co de Phone Number [facility] [address] [facility] [employer] [place], [place] [id number] * (ABNORMAL) aPTT (11/03/2023 4:41 AM CDT) [...] Result Performing Organization Address [facility] Co de Phone Number [facility] [address] [facility] [place] [address] * (ABNORMAL) Protime-INR (11/03/2023 4:41 AM CDT) PT 19.8(H) 10.3 - 13.7 sec INR 1.74(H) 0.90 - 1.20 [facility] Comment: Interpretive data Oral anticoagulant therapeutic [...] [facility]/ZIP Co de Phone Number [facility] [address] [place] [address] * Magnesium (11/03/2023 4:41 AM CDT) [facility] Magnesium 2.4 1.4 - 2.5 mg/dL Blood 11/03/2023 4:41 AM CDT 11/03/2023 4:41 AM CDT Byron Rudi Wade MEJIA LAB BLOOD ORDERABLES Fi nal Result Performing Organization Address [facility] Co de Phone Number [facility] [address] [place] [address] * (ABNORMAL) Renal function panel (11/03/2023 4:41 AM CDT) [facility] Sodium 132(L) 135 - 145 mmol/L Potassium, pl 3.7 3.3 - 4.9 mmol/L [facility] Chloride 92(L) 97 - 110 mmol/L [facility] CO2 27 22 - 32 mmol/L [facility] Anion gap 13 2 - 15 mmol/L [facility] BUN 79(H) 6 - 25 mg/dL [facility] Creatinine 8.23(H) 0.80 - 1.30 mg/dL [facility] Glucose 252(H) 70 - 199 mg/dL [facility] Comment: Interpretive Data Fasting glucose >/= [...] 2022. Calcium 8.9 8.5 - 10.3 mg/dL [facility] Phosphorus, pl 4.2 2.3 - 4.5 mg/dL [facility] Albumin 2.9(L) 3.5 - 5.0 g/dL [facility] Blood 11/03/2023 4:41 AM CDT 11/03/2023 4:41 AM CDT Byron Olvera COORDINATOR OF HEALTH SERVICES LAB BLOOD ORDERABLES Fi nal Result Performing Organization Address [facility] Co de Phone Number [facility] [address] [employer] [place], [place] [phone] * (ABNORMAL) CBC without differential (11/03/2023 4:41 AM CDT) [facility] WBC 4.8 3.8 - 9.9 K/cumm Hgb 7.6(L) 13.0 - 17.5 g/dL [facility] Hct 24.4(L) 38.9 - 50.3 % [facility] Plt 389 150 - 400 K/cumm [facility] MPV 9.2 9.1 - 12.3 fL [facility] RBC 2.61(L) 4.30 - 5.80 M/cumm [facility] MCV 93.5 81.3 - 96.4 fL [facility] MCH 29.1 27.1 - 33.3 pg [facility] MCHC 31.1(L) 32.3 - 35.7 g/dL [facility] RDW CV 14.6 11.1 - 14.9 % [facility] RDW SD 50.1(H) 35.7 - 48.1 fL [facility] NRBC abs 0.00 0.00 - 0.01 K/cumm [facility] Blood 11/03/2023 4:41 AM CDT 11/03/2023 4:41 AM CDT Byron Olvera NP LAB BLOOD ORDERABLES Fi nal Result Performing Organization Address City/[facility]/ZIP Co de Phone Number [facility] [address] Department [employer] [place], [place] [phone] * aPTT (11/02/2023 8:38 PM CDT) aPTT [...] ORDERABLES Fin al Result Performing Organization Address [facility] Co de Phone Number [facility] [address] [facility] [employer] [place], [place] [phone] * (ABNORMAL) POCT glucose (11/02/2023 8:22 PM CDT) Pathologist [facility] Glucose, POC 170(H) 70 - 140 mg/dL Comment: For Glucose values <35 mg/dl when Hematocrit is >60 mg/dl,the test may not accurately detect significant hypoglycemia,and testing in the Laboratory should be considered if clinically indicated. Blood 11/02/2023 8:22 PM CDT 11/02/2023 8:22 PM CDT Jaqueline Valero MD LAB POCT ORDERABLES - APRIL CE Final Result Performing Organization Address [facility] Co de Phone Number [facility] [address] [place] [address] * (ABNORMAL) POCT glucose (11/02/2023 5:22 PM [...] APRIL CE Final Result Performing Organization Address City/[facility] Co de Phone Number [facility] [address] [place] [address] * aPTT (11/02/2023 1:17 PM CDT) aPTT 36 28 - 38 sec Comment: Interpretive Data Heparin therapeutic range: 66.0 - 100.0 seconds. Range based on correlation with therapeutic heparin activity range of 0.3 - 0.7 Units/mL. Current interpretive data was last revised on 2023. Blood 11/02/2023 1:17 PM CDT 11/02/2023 1:33 PM CDT Narrative [facility] - 11/02/2023 1:50 PM CDT Baseline prior to heparin initiation Nona [facility] LAB BLOOD ORDERABLES Fin al Result Performing Organization Address [facility] Co de Phone Number [facility] [address] Department [employer] [place], [place] [id number] * (ABNORMAL) POCT glucose (11/02/2023 12:27 PM [...] APRIL CE Final Result Performing Organization Address City/[facility] Co de Phone Number [facility] [address] Department [place] [place], [place] [id number] * (ABNORMAL) POCT glucose (11/02/2023 8:15 AM [...] ORDERABLES - APRIL CE Final Result [facility] [address] Department [place] [address] * eGFR (11/02/2023 2:16 AM CDT) Pathologist [facility] eGFR 7 mL/min/1. 73 m2 Comment: Interpretive [...] CDT 11/02/2023 2:37 AM CDT Byron Olvera COORDINATOR OF HEALTH SERVICES LAB BLOOD ORDERABLES Fi nal Result Performing Organization Address [facility] Co de Phone Number [facility] [address] [facility] [place] [address] * (ABNORMAL) Protime-INR (11/02/2023 2:16 AM CDT) PT 19.1(H) 10.3 - 13.7 sec INR 1.68(H) 0.90 - 1.20 [facility] Comment: Interpretive data Oral anticoagulant therapeutic ranges: Venous thromboembolism prophylaxis or treatment: 2.0-3.0 CARDIOLOGY Standard range: 2.0-3.0 High-intensity range: 2.5-3.5 Refer to indication-specific guidelines for appropriate target ranges for prosthetic heart valve replacement. Current interpretive data was last revised on 2019. Blood 11/02/2023 2:16 AM CDT 11/02/2023 2:37 AM CDT Byron Olvera COORDINATOR OF HEALTH SERVICES LAB BLOOD ORDERABLES Fi nal Result Performing Organization Address [facility] Co de Phone Number [facility] [address] [facility] [place] [address] * Magnesium (11/02/2023 2:16 AM CDT) Magnesium 2.4 1.4 - 2.5 mg/dL Blood 11/02/2023 2:16 AM CDT 11/02/2023 2:37 AM CDT Byron Olvera COORDINATOR OF HEALTH SERVICES LAB BLOOD ORDERABLES Fi nal Result Performing Organization Address City/[facility] Co de Phone Number [facility] [address] [facility] [place] [address] * (ABNORMAL) Renal function panel (11/02/2023 2:16 AM CDT) Sodium 128(L) 135 - 145 mmol/L Potassium, pl 3.9 3.3 - 4.9 mmol/L [facility] Chloride 89(L) 97 - 110 mmol/L [facility] CO2 25 22 - 32 mmol/L [facility] Anion gap 14 2 - 15 mmol/L [facility] BUN 86(H) 6 - 25 mg/dL [facility] Creatinine 8.74(H) 0.80 - 1.30 mg/dL [facility] Glucose 353(H) 70 - 199 mg/dL [facility] Comment: Interpretive Data Fasting glucose >/= [...] 2022. Calcium 9.3 8.5 - 10.3 mg/dL [facility] Phosphorus, pl 3.7 2.3 - 4.5 mg/dL [facility] Albumin 2.7(L) 3.5 - 5.0 g/dL [facility] Blood 11/02/2023 2:16 AM CDT 11/02/2023 2:37 AM CDT us Byron Olvera NP LAB BLOOD ORDERABLES Fi nal Result [facility] [address] Department [place] [address] * (ABNORMAL) CBC without differential (11/02/2023 2:16 AM CDT) [facility] WBC 5.0 3.8 - 9.9 K/cumm Hgb 7.5(L) 13.0 - 17.5 g/dL [facility] Hct 24.5(L) 38.9 - 50.3 % [facility] Plt 391 150 - 400 K/cumm [facility] MPV 9.3 9.1 - 12.3 fL [facility] RBC 2.60(L) 4.30 - 5.80 M/cumm [facility] MCV 94.2 81.3 - 96.4 fL [facility] MCH 28.8 27.1 - 33.3 pg [facility] MCHC 30.6(L) 32.3 - 35.7 g/dL [facility] RDW CV 14.6 11.1 - 14.9 % [facility] RDW SD 50.4(H) 35.7 - 48.1 fL [facility] NRBC abs 0.00 0.00 - 0.01 K/cumm [facility] Blood 11/02/2023 2:16 AM CDT 11/02/2023 2:37 AM CDT us Byron Olvera NP LAB BLOOD ORDERABLES Fi nal Result Performing Organization Address City/[facility]/ZIP Co de Phone Number [facility] [address] [place] [employer] [place] [address] * (ABNORMAL) POCT glucose (11/02/2023 2:06 AM CDT) [facility] Glucose, POC 350(H) 70 - 140 mg/dL Comment: For Glucose values <35 mg/dl when Hematocrit is >60 mg/dl,the test may not accurately detect significant hypoglycemia,and testing in the Laboratory should be considered if clinically indicated. Blood 11/02/2023 2:06 AM CDT 11/02/2023 2:06 AM CDT Jaqueline Valero MD LAB POCT ORDERABLES - APRIL CE Final Result Performing Organization Address City/[facility]/ZIP Co de Phone Number [facility] [address] [place] [address] * (ABNORMAL) POCT glucose (11/01/2023 8:25 PM [...] APRIL CE Final Result Performing Organization Address [facility] de Phone Number [facility] [address] [facility] [place], [place] [id number] * (ABNORMAL) POCT glucose (11/01/2023 5:17 PM [...] APRIL CE Final Result Performing Organization Address [facility] de Phone Number [facility] [address] [facility] [place] [address] * (ABNORMAL) POCT glucose (11/01/2023 12:01 PM [...] APRIL CE Final Result Performing Organization Address [facility] de Phone Number [facility] [address] [facility] [place], [place] [id number] * (ABNORMAL) POCT glucose (11/01/2023 8:27 AM CDT) Pathologist [facility] Glucose, POC 246(H) 70 - 140 mg/dL Comment: For Glucose values <35 mg/dl when Hematocrit is >60 mg/dl,the test may not accurately detect significant hypoglycemia,and testing in the Laboratory should be considered if clinically indicated. Blood 11/01/2023 8:27 AM CDT 11/01/2023 8:27 AM CDT Jaqueline Valero MD LAB POCT ORDERABLES - APRIL CE Final Result Performing Organization Address [facility] de Phone Number [facility] [address] [place] [address] * eGFR (11/01/2023 2:09 AM CDT) Pathologist [facility] eGFR 6 mL/min/1. 73 m2 Comment: [...] [facility]/ZIP Co de Phone Number [facility] [address] [place] [employer] [place] [address] * (ABNORMAL) Protime-INR (11/01/2023 2:09 AM CDT) PT 20.6(H) 10.3 - 13.7 sec INR 1.81(H) 0.90 - 1.20 [facility] Comment: Interpretive data Oral anticoagulant therapeutic ranges: [...] [facility]/ZIP Co de Phone Number [facility] [address] [place] [employer] [place] [address] * Magnesium (11/01/2023 2:09 AM CDT) Magnesium 2.5 1.4 - 2.5 mg/dL Blood 11/01/2023 2:09 AM CDT 11/01/2023 2:21 AM CDT Byron Olvera NP LAB BLOOD ORDERABLES Fi nal Result [facility] [address] Department [place] [address] * (ABNORMAL) Renal function panel (11/01/2023 2:09 AM CDT) Sodium 131(L) 135 - 145 mmol/L Potassium, pl 4.0 3.3 - 4.9 mmol/L [facility] Chloride 91(L) 97 - 110 mmol/L [facility] CO2 25 22 - 32 mmol/L [facility] Anion gap 15 2 - 15 mmol/L [facility] BUN 89(H) 6 - 25 mg/dL [facility] Creatinine 8.97(H) 0.80 - 1.30 mg/dL [facility] Glucose 302(H) 70 - 199 mg/dL [facility] Comment: Interpretive Data Fasting glucose >/= [...] 2022. Calcium 9.1 8.5 - 10.3 mg/dL [facility] Phosphorus, pl 4.1 2.3 - 4.5 mg/dL [facility] Albumin 2.9(L) 3.5 - 5.0 g/dL [facility] Blood 11/01/2023 2:09 AM CDT 11/01/2023 2:21 AM CDT Byron Olvera NP LAB BLOOD ORDERABLES Fi nal Result [facility] [address] Department [place] [address] * (ABNORMAL) CBC without differential (11/01/2023 2:09 AM CDT) [facility] WBC 5.9 3.8 - 9.9 K/cumm Hgb 7.7(L) 13.0 - 17.5 g/dL [facility] Hct 25.0(L) 38.9 - 50.3 % [facility] Plt 381 150 - 400 K/cumm [facility] MPV 9.2 9.1 - 12.3 fL [facility] RBC 2.65(L) 4.30 - 5.80 M/cumm [facility] MCV 94.3 81.3 - 96.4 fL [facility] MCH 29.1 27.1 - 33.3 pg [facility] MCHC 30.8(L) 32.3 - 35.7 g/dL [facility] RDW CV 14.8 11.1 - 14.9 % [facility] RDW SD 50.6(H) 35.7 - 48.1 fL [facility] NRBC abs 0.00 0.00 - 0.01 K/cumm [facility] Blood 11/01/2023 2:09 AM CDT 11/01/2023 2:21 AM CDT us Byron Olvera COORDINATOR OF HEALTH SERVICES LAB BLOOD ORDERABLES nal Result [facility] [address] Department [place] [address] * Vancomycin level random (11/01/2023 2:09 AM CDT) [facility] Vancomycin random 17.3 mcg/mL Comment: Interpretive Data No reference ranges have been established for random drug levels. Current Interpretive Data was last revised on 2020. Blood 11/01/2023 2:09 AM CDT 11/01/2023 2:21 AM CDT us Guerline Rodriguez PA LAB BLOOD ORDERABLES Final R esult Performing Organization Address [facility] Co de Phone Number [facility] [address] [facility] [place] [place], [place] [id number] * (ABNORMAL) POCT glucose (11/01/2023 2:05 AM [...] APRIL CE Final Result Performing Organization Address [facility] Co de Phone Number [facility] [address] [facility] [place] [address] * (ABNORMAL) POCT glucose (10/31/2023 9:21 PM [...] APRIL CE Final Result Performing Organization Address [facility] Co de Phone Number [facility] [address] [facility] [place], [place] [id number] * (ABNORMAL) POCT glucose (10/31/2023 5:12 PM [...] APRIL CE Final Result Performing Organization Address [facility] Co de Phone Number [facility] [address] [facility] [place] [address] * (ABNORMAL) POCT glucose (10/31/2023 12:02 PM [...] APRIL CE Final Result Performing Organization Address [facility] de Phone Number [facility] [address] [facility] [place] [address] * (ABNORMAL) POCT glucose (10/31/2023 12:01 PM [...] APRIL CE Final Result Performing Organization Address [facility] Co de Phone Number [facility] [address] Department [place] [address] * (ABNORMAL) POCT glucose (10/31/2023 8:06 AM CDT) [facility] Glucose, POC 338(H) 70 - 140 mg/dL Comment: For Glucose values <35 mg/dl when Hematocrit is >60 mg/dl,the test may not accurately detect significant hypoglycemia,and testing in the Laboratory should be considered if clinically indicated. Blood 10/31/2023 8:06 AM CDT 10/31/2023 8:06 AM CDT us Jaqueline Valero MD LAB POCT ORDERABLES - APRIL CE Final Result [facility] [address] Department [place] [address] * eGFR (10/31/2023 2:25 AM CDT) [facility] eGFR 6 mL/min/1. 73 m2 [...] Performing Organization Address City/[facility] Co de Phone Number [facility] [address] [facility] [place] [address] * (ABNORMAL) Protime-INR (10/31/2023 2:25 AM CDT) PT 20.6(H) 10.3 - 13.7 sec INR 1.81(H) 0.90 - 1.20 [facility] Comment: Interpretive data Oral anticoagulant therapeutic ranges: [...] Result Performing Organization Address [facility] Co de Phone Number [facility] [address] [facility] [place] [address] * Magnesium (10/31/2023 2:25 AM CDT) Magnesium 2.5 1.4 - 2.5 mg/dL Blood 10/31/2023 2:25 AM CDT 10/31/2023 2:35 AM CDT Byron Olvera NP LAB BLOOD ORDERABLES Fi nal Result Performing Organization Address City/[facility] Co de Phone Number [facility] [address] [facility] [place] [address] * (ABNORMAL) Renal function panel (10/31/2023 2:25 AM CDT) [facility] Sodium 131(L) 135 - 145 mmol/L Potassium, pl 4.0 3.3 - 4.9 mmol/L [facility] Chloride 91(L) 97 - 110 mmol/L [facility] CO2 24 22 - 32 mmol/L [facility] Anion gap 16(H) 2 - 15 mmol/L [facility] BUN 90(H) 6 - 25 mg/dL [facility] Creatinine 9.34(H) 0.80 - 1.30 mg/dL [facility] Glucose 275(H) 70 - 199 mg/dL [facility] Comment: Interpretive Data Fasting glucose >/= [...] 2022. Calcium 9.5 8.5 - 10.3 mg/dL [facility] Phosphorus, pl 4.8(H) 2.3 - 4.5 mg/dL [facility] Albumin 2.7(L) 3.5 - 5.0 g/dL [facility] Blood 10/31/2023 2:25 AM CDT 10/31/2023 2:35 AM CDT Byron Olvera NP LAB BLOOD ORDERABLES nal Result [facility] [address] Department [place] [address] * (ABNORMAL) CBC without differential (10/31/2023 2:25 AM CDT) [facility] WBC 6.6 3.8 - 9.9 K/cumm Hgb 7.9(L) 13.0 - 17.5 g/dL [facility] Hct 25.5(L) 38.9 - 50.3 % [facility] Plt 366 150 - 400 K/cumm [facility] MPV 9.3 9.1 - 12.3 fL [facility] RBC 2.70(L) 4.30 - 5.80 M/cumm [facility] MCV 94.4 81.3 - 96.4 fL [facility] MCH 29.3 27.1 - 33.3 pg [facility] MCHC 31.0(L) 32.3 - 35.7 g/dL [facility] RDW CV 15.1(H) 11.1 - 14.9 % [facility] RDW SD 52.3(H) 35.7 - 48.1 fL [facility] NRBC abs 0.00 0.00 - 0.01 K/cumm [facility] Blood 10/31/2023 2:25 AM CDT 10/31/2023 2:34 AM CDT us Byron Olvera COORDINATOR OF HEALTH SERVICES LAB BLOOD ORDERABLES Fi nal Result [facility] [address] Department [place] [address] * (ABNORMAL) POCT glucose (10/30/2023 9:39 PM CDT) [facility] Glucose, POC 238(H) 70 - 140 mg/dL Comment: For Glucose values <35 mg/dl when Hematocrit is >60 mg/dl,the test may not accurately detect significant hypoglycemia,and testing in the Laboratory should be considered if clinically indicated. Blood 10/30/2023 9:39 PM CDT 10/30/2023 9:39 PM CDT us Jaqueline Valero MD LAB POCT ORDERABLES - APRIL CE Final Result [facility] [address] [place] [address] * (ABNORMAL) POCT glucose (10/30/2023 5:31 PM [...] APRIL CE Final Result Performing Organization Address [facility] de Phone Number [facility] [address] [place] [address] * (ABNORMAL) POCT glucose (10/30/2023 12:17 PM [...] APRIL CE Final Result Performing Organization Address [facility] Co de Phone Number [facility] [address] [place] [address] * (ABNORMAL) POCT glucose (10/30/2023 6:20 AM [...] APRIL CE Final Result Performing Organization Address City/[facility]/ZIP Co de Phone Number [facility] [address] Department [place] [address] * eGFR (10/30/2023 4:18 AM CDT) eGFR [...] NP LAB BLOOD ORDERABLES Fi nal Result [facility] [address] [facility] [place] [address] * (ABNORMAL) Protime-INR (10/30/2023 4:18 AM CDT) [facility] PT 22.8(H) 10.3 - 13.7 sec INR 2.00(H) 0.90 - 1.20 [facility] Comment: Interpretive data Oral anticoagulant therapeutic [...] [facility]/ZIP Co de Phone Number [facility] [address] [facility] [place] [address] * Magnesium (10/30/2023 4:18 AM CDT) [facility] Magnesium 2.4 1.4 - 2.5 mg/dL Blood 10/30/2023 4:18 AM CDT 10/30/2023 4:45 AM CDT Byron Olvera COORDINATOR OF HEALTH SERVICES LAB BLOOD ORDERABLES Fi nal Result [facility] [address] [facility] [place] [address] * (ABNORMAL) Renal function panel (10/30/2023 4:18 AM CDT) [facility] Sodium 132(L) 135 - 145 mmol/L Potassium, pl 4.0 3.3 - 4.9 mmol/L [facility] Chloride 89(L) 97 - 110 mmol/L [facility] CO2 25 22 - 32 mmol/L [facility] Anion gap 18(H) 2 - 15 mmol/L [facility] BUN 93(H) 6 - 25 mg/dL [facility] Creatinine 9.55(H) 0.80 - 1.30 mg/dL [facility] Glucose 292(H) 70 - 199 mg/dL [facility] Comment: Interpretive Data Fasting glucose >/= [...] 2022. Calcium 9.3 8.5 - 10.3 mg/dL [facility] Phosphorus, pl 5.4(H) 2.3 - 4.5 mg/dL [facility] Albumin 2.7(L) 3.5 - 5.0 g/dL [facility] Blood 10/30/2023 4:18 AM CDT 10/30/2023 4:45 AM CDT us Byron Olvera NP LAB BLOOD ORDERABLES Fi nal Result [facility] [address] Department [place] [address] * (ABNORMAL) CBC without differential (10/30/2023 4:18 AM CDT) WBC 6.5 3.8 - 9.9 K/cumm Hgb 7.6(L) 13.0 - 17.5 g/dL [facility] Hct 24.3(L) 38.9 - 50.3 % [facility] Plt 317 150 - 400 K/cumm [facility] MPV 9.8 9.1 - 12.3 fL [facility] RBC 2.59(L) 4.30 - 5.80 M/cumm [facility] MCV 93.8 81.3 - 96.4 fL [facility] MCH 29.3 27.1 - 33.3 pg [facility] MCHC 31.3(L) 32.3 - 35.7 g/dL [facility] RDW CV 15.1(H) 11.1 - 14.9 % [facility] RDW SD 52.2(H) 35.7 - 48.1 fL [facility] NRBC abs 0.00 0.00 - 0.01 K/cumm [facility] Blood 10/30/2023 4:18 AM CDT 10/30/2023 4:45 AM CDT Byron Olvera COORDINATOR OF HEALTH SERVICES LAB BLOOD ORDERABLES Fi nal Result Performing Organization Address [facility]/ZIP Co de Phone Number [facility] [address] [place] [address] * (ABNORMAL) POCT glucose (10/29/2023 9:59 PM [...] APRIL CE Final Result Performing Organization Address City/[facility]/ZIP Co de Phone Number [facility] [address] [place] [address] * (ABNORMAL) POCT glucose (10/29/2023 5:41 PM [...] ORDERABLES - APRIL CE Final Result [facility] [address] [place] [address] * US Vein Duplex Lower Extremity Bilateral [...] the lower extremities bilaterally. Electronically signed by: Danile Mitchell M.D. Nona GRACE IMG US PROCEDURES [...] ORDERABLES - APRIL CE Final Result [facility] [address] Department [place] [address] * (ABNORMAL) POCT glucose (10/29/2023 [...] ORDERABLES - APRIL CE Final Result [facility] [address] Department [place] [address] * eGFR (10/29/2023 4:04 AM CDT) eGFR [...] CDT 10/29/2023 4:10 AM CDT Byron Olvera COORDINATOR OF HEALTH SERVICES LAB BLOOD ORDERABLES Fi nal Result [facility] [address] [place] [address] * (ABNORMAL) Protime-INR (10/29/2023 4:04 AM CDT) Pathologist [facility] PT 26.9(H) 10.3 - 13.7 sec INR 2.36(H) 0.90 - 1.20 [facility] Comment: Interpretive data Oral anticoagulant therapeutic ranges: Venous thromboembolism prophylaxis or treatment: 2.0-3.0 CARDIOLOGY Standard range: 2.0-3.0 High-intensity range: 2.5-3.5 Refer to indication-specific guidelines for appropriate target ranges for prosthetic heart valve replacement. Current interpretive data was last revised on 2019. Blood 10/29/2023 4:04 AM CDT 10/29/2023 4:11 AM CDT Byron Olvera COORDINATOR OF HEALTH SERVICES LAB BLOOD ORDERABLES Fi nal Result [facility] [address] [place] [address] * Magnesium (10/29/2023 4:04 AM CDT) Pathologist [facility] Magnesium 2.4 1.4 - 2.5 mg/dL Blood 10/29/2023 4:04 AM CDT 10/29/2023 4:10 AM CDT Byron Olvera COORDINATOR OF HEALTH SERVICES LAB BLOOD ORDERABLES Fi nal Result [facility] [address] [place] [address] * (ABNORMAL) Renal function panel (10/29/2023 4:04 AM CDT) Pathologist [facility] Sodium 129(L) 135 - 145 mmol/L Potassium, pl 4.1 3.3 - 4.9 mmol/L [facility] Chloride 87(L) 97 - 110 mmol/L [facility] CO2 23 22 - 32 mmol/L [facility] Anion gap 19(H) 2 - 15 mmol/L [facility] BUN 85(H) 6 - 25 mg/dL [facility] Creatinine 9.66(H) 0.80 - 1.30 mg/dL [facility] Glucose 297(H) 70 - 199 mg/dL [facility] Comment: Interpretive Data Fasting glucose >/= [...] 2022. Calcium 9.5 8.5 - 10.3 mg/dL [facility] Phosphorus, pl 5.8(H) 2.3 - 4.5 mg/dL [facility] Albumin 2.9(L) 3.5 - 5.0 g/dL [facility] Blood 10/29/2023 4:04 AM CDT 10/29/2023 4:10 AM CDT Byron Olvera NP LAB BLOOD ORDERABLES Fi nal Result [facility] [address] Department [place] [address] * (ABNORMAL) CBC without differential (10/29/2023 4:04 AM CDT) WBC 7.0 3.8 - 9.9 K/cumm Hgb 7.9(L) 13.0 - 17.5 g/dL [facility] Hct 25.2(L) 38.9 - 50.3 % [facility] Plt 291 150 - 400 K/cumm [facility] MPV 10.0 9.1 - 12.3 fL [facility] RBC 2.70(L) 4.30 - 5.80 M/cumm [facility] MCV 93.3 81.3 - 96.4 fL [facility] MCH 29.3 27.1 - 33.3 pg [facility] MCHC 31.3(L) 32.3 - 35.7 g/dL [facility] RDW CV 15.4(H) 11.1 - 14.9 % [facility] [facility] RDW SD 52.0(H) 35.7 - 48.1 fL [facility] NRBC abs 0.00 0.00 - 0.01 K/cumm [facility] Blood 10/29/2023 4:04 AM CDT 10/29/2023 4:11 AM CDT us Byron Olvera COORDINATOR OF HEALTH SERVICES LAB BLOOD ORDERABLES Fi nal Result Performing Organization Address [facility]/ZIP Co de Phone Number [facility] [address] [employer] [place], [place] [id number] * (ABNORMAL) POCT glucose (10/28/2023 8:22 PM SPRAY MIXER) Glucose, POC 195(H) 70 - 140 mg/dL Comment: For Glucose values <35 mg/dl when Hematocrit is >60 mg/dl,the test may not accurately detect significant hypoglycemia,and testing in the Laboratory should be considered if clinically indicated. Blood 10/28/2023 8:22 PM SPRAY MIXER 10/28/2023 8:22 PM SPRAY MIXER Jaqueline Valero MD LAB POCT ORDERABLES - APRIL CE Final Result Performing Organization Address [facility]/ZIP Co de Phone Number [facility] [address] [employer] [place], [place] [phone] * (ABNORMAL) POCT glucose (10/28/2023 5:24 PM SPRAY MIXER) Glucose, POC 222(H) 70 - 140 mg/dL Comment: For Glucose values <35 mg/dl when Hematocrit is >60 mg/dl,the test may not accurately detect significant hypoglycemia,and testing in the Laboratory should be considered if clinically indicated. Blood 10/28/2023 5:24 PM SPRAY MIXER 10/28/2023 5:24 PM SPRAY MIXER Jaqueline Valero MD LAB POCT ORDERABLES - APRIL CE Final Result Performing Organization Address [facility] de Phone Number [facility] [address] [facility] [place] [address] * (ABNORMAL) POCT glucose (10/28/2023 12:45 PM SPRAY MIXER) Glucose, POC 201(H) 70 - 140 mg/dL Comment: For Glucose values <35 mg/dl when Hematocrit is >60 mg/dl,the test may not accurately detect significant hypoglycemia,and testing in the Laboratory should be considered if clinically indicated. Blood 10/28/2023 12:4 5 PM SPRAY MIXER 10/28/2023 12:45 PM SPRAY MIXER Jaqueline Valero MD LAB POCT ORDERABLES - APRIL CE Final Result Performing Organization Address [facility] de Phone Number [facility] [address] [facility] [place] [address] * POCT glucose (10/28/2023 8:04 AM SPRAY MIXER) Glucose, POC 101 70 - 140 mg/dL Comment: For Glucose values <35 mg/dl when Hematocrit is >60 mg/dl,the test may not accurately detect significant hypoglycemia,and testing in the Laboratory should be considered if clinically indicated. Blood 10/28/2023 8:0 4 AM SPRAY MIXER 10/28/2023 8:04 AM SPRAY MIXER Jaqueline Valero MD LAB POCT ORDERABLES - APRIL CE Final Result Performing Organization Address [facility]/ZIP Co de Phone Number [facility] [address] Department [place] [address] * XR Chest 1 View - Portable - in AM (10/28/2023 6:00 AM SPRAY MIXER) Anatomical Region Laterality Modality Body, Chest N/A Computed Radiogr aphy 10/28/2023 8:40 AM SPRAY MIXER Impressions 10/28/2023 8:40 AM SPRAY MIXER Comparison made to radiograph 10/27/2023. Right internal jugular approach central venous catheter tip overlying the superior vena cava. ??Median sternotomy wires and plates in similar alignment. Likely small bilateral pleural effusions with fluid along the right minor fissure. ??There is mild bibasilar atelectasis. ??No pneumothorax. ??Cardiomediastinal silhouette is stably enlarged. Electronically signed by: Trace Barrow M.D. Narrative 10/28/2023 8:40 AM SPRAY MIXER EXAMINATION: XR CHEST 1 VIEW Procedure Note [...] signed by: Trace Barrow M.D. Byron Olvera COORDINATOR OF HEALTH SERVICES IMG XR PROCEDURES Final Result * eGFR (10/28/2023 12:34 AM SPRAY MIXER) eGFR 6 mL/min/1. 73 m2 Comment: Interpretive [...] reviewed 2021. Blood 10/28/2023 12:3 4 AM SPRAY MIXER 10/28/2023 1:02 AM SPRAY MIXER us Byron Olvera NP LAB BLOOD ORDERABLES Fi nal Result Performing Organization Address [facility] Co de Phone Number [facility] [address] [place] [employer] [place] [address] * (ABNORMAL) aPTT (10/28/2023 12:34 AM SPRAY MIXER) aPTT 102(H) 28 - 38 sec Comment: Interpretive Data Heparin therapeutic range: 66.0 - 100.0 seconds. Range based on correlation with therapeutic heparin activity range of 0.3 - 0.7 Units/mL. Current interpretive data was last revised on 2023. Blood 10/28/2023 12:3 4 AM SPRAY MIXER 10/28/2023 1:02 AM SPRAY MIXER Narrative ALESSANDRA MACKENZIE - 10/28/2023 1:15 AM SPRAY MIXER While on heparin us Jaqueline Valero MD LAB BLOOD ORDERABLES Final Result Performing Organization Address [facility] Co de Phone Number [facility] [address] [place] [address] * (ABNORMAL) Protime-INR (10/28/2023 12:34 AM SPRAY MIXER) [facility] PT 30.1(H) 10.3 - 13.7 sec INR 2.64(H) 0.90 - 1.20 [facility] Comment: Interpretive data Oral anticoagulant therapeutic ranges: Venous thromboembolism prophylaxis or treatment: 2.0-3.0 CARDIOLOGY Standard range: 2.0-3.0 High-intensity range: 2.5-3.5 Refer to indication-specific guidelines for appropriate target ranges for prosthetic heart valve replacement. Current interpretive data was last revised on 2019. Blood 10/28/2023 12:3 4 AM SPRAY MIXER 10/28/2023 1:02 AM SPRAY MIXER Byron Olvera NP LAB BLOOD ORDERABLES Fi nal Result Performing Organization Address [facility]/ZIP Co de Phone Number [facility] [address] [place] [address] * Magnesium (10/28/2023 12:34 AM SPRAY MIXER) [facility] Magnesium 2.3 1.4 - 2.5 mg/dL Blood 10/28/2023 12:3 4 AM SPRAY MIXER 10/28/2023 1:02 AM SPRAY MIXER Byron Olvera NP LAB BLOOD ORDERABLES Fi nal Result Performing Organization Address City/[facility]/ZIP Co de Phone Number [facility] [address] [facility] [place] [address] * (ABNORMAL) Renal function panel (10/28/2023 12:34 AM SPRAY MIXER) [facility] Sodium 128(L) 135 - 145 mmol/L Potassium, pl 4.4 3.3 - 4.9 mmol/L [facility] Chloride 87(L) 97 - 110 mmol/L [facility] CO2 22 22 - 32 mmol/L [facility] Anion gap 19(H) 2 - 15 mmol/L [facility] BUN 90(H) 6 - 25 mg/dL [facility] Creatinine 9.98(H) 0.80 - 1.30 mg/dL [facility] Glucose 270(H) 70 - 199 mg/dL [facility] Comment: Interpretive Data Fasting glucose >/= [...] 2022. Calcium 8.9 8.5 - 10.3 mg/dL [facility] Phosphorus, pl 6.3(H) 2.3 - 4.5 mg/dL [facility] Albumin 2.9(L) 3.5 - 5.0 g/dL [facility] Blood 10/28/2023 12:3 4 AM SPRAY MIXER 10/28/2023 1:02 AM SPRAY MIXER Byron Olvera NP LAB BLOOD ORDERABLES Fi nal Result [facility] [address] Department of Laboratories [place], [place] [id number] * (ABNORMAL) CBC without differential (10/28/2023 12:34 AM SPRAY MIXER) Pathologist [facility] WBC 7.4 3.8 - 9.9 K/cumm Hgb 7.4(L) 13.0 - 17.5 g/dL [facility] Hct 24.1(L) 38.9 - 50.3 % [facility] Plt 244 150 - 400 K/cumm [facility] MPV 10.5 9.1 - 12.3 fL [facility] RBC 2.55(L) 4.30 - 5.80 M/cumm [facility] MCV 94.5 81.3 - 96.4 fL [facility] MCH 29.0 27.1 - 33.3 pg [facility] MCHC 30.7(L) 32.3 - 35.7 g/dL [facility] RDW CV 15.6(H) 11.1 - 14.9 % [facility] RDW SD 53.4(H) 35.7 - 48.1 fL [facility] NRBC abs 0.00 0.00 - 0.01 K/cumm [facility] Blood 10/28/2023 12:3 4 AM SPRAY MIXER 10/28/2023 1:03 AM SPRAY MIXER Byron Olvera COORDINATOR OF HEALTH SERVICES LAB BLOOD ORDERABLES Fi nal Result Performing Organization Address [facility] Co de Phone Number [facility] [address] [place] [employer] [place] [address] * (ABNORMAL) POCT glucose (10/27/2023 10:01 PM SPRAY MIXER) Glucose, POC 312(H) 70 - 140 mg/dL Comment: For Glucose values <35 mg/dl when Hematocrit is >60 mg/dl,the test may not accurately detect significant hypoglycemia,and testing in the Laboratory should be considered if clinically indicated. Blood 10/27/2023 10:0 1 PM SPRAY MIXER 10/27/2023 10:01 PM SPRAY MIXER us Jaqueline Valero MD LAB POCT ORDERABLES - APRIL CE Final Result Performing Organization Address [facility] Co de Phone Number [facility] [address] [place] [employer] [place] [address] * POCT glucose (10/27/2023 5:48 PM SPRAY MIXER) Glucose, POC 108 70 - 140 mg/dL Comment: For Glucose values <35 mg/dl when Hematocrit is >60 mg/dl,the test may not accurately detect significant hypoglycemia,and testing in the Laboratory should be considered if clinically indicated. Blood 10/27/2023 5:48 PM SPRAY MIXER 10/27/2023 5:48 PM SPRAY MIXER Jaqueline Valero MD LAB POCT ORDERABLES - APRIL CE Final Result Performing Organization Address [facility] de Phone Number [facility] [address] [facility] [place] [address] * (ABNORMAL) POCT glucose (10/27/2023 11:54 AM SPRAY MIXER) Glucose, POC 232(H) 70 - 140 mg/dL Comment: For Glucose values <35 mg/dl when Hematocrit is >60 mg/dl,the test may not accurately detect significant hypoglycemia,and testing in the Laboratory should be considered if clinically indicated. Blood 10/27/2023 11:5 4 AM SPRAY MIXER 10/27/2023 11:54 AM SPRAY MIXER Jaqueline Valero MD LAB POCT ORDERABLES - APRIL CE Final Result Performing Organization Address [facility] de Phone Number [facility] [address] [facility] [place] [address] * (ABNORMAL) T4, free (10/27/2023 11:02 AM SPRAY MIXER) Free T4 0.68(L) 0.90 - 1.70 ng/dL Blood 10/27/2023 11:0 2 AM SPRAY MIXER 10/27/2023 11:14 AM SPRAY MIXER Result [facility] Fernandez Carranza MD LAB BLOOD ORDERABLES Final Resu lt Performing Organization Address [facility] de Phone Number [facility] [address] [facility] [place] [address] * (ABNORMAL) POCT glucose (10/27/2023 8:28 AM SPRAY MIXER) Glucose, POC 255(H) 70 - 140 mg/dL Comment: For Glucose values <35 mg/dl when Hematocrit is >60 mg/dl,the test may not accurately detect significant hypoglycemia,and testing in the Laboratory should be considered if clinically indicated. Blood 10/27/2023 8:28 AM SPRAY MIXER 10/27/2023 8:28 AM SPRAY MIXER Jaqueline Valero MD LAB POCT ORDERABLES - APRIL CE Final Result [facility] [address] Department [place] [address] * XR Chest 1 View - Portable - in AM (10/27/2023 6:14 AM SPRAY MIXER) Anatomical Region Laterality Modality Body, Chest N/A Computed Radiogr aphy 10/27/2023 10:5 5 AM SPRAY MIXER Impressions 10/27/2023 10:55 AM SPRAY MIXER Right internal jugular central venous catheter terminates in the superior cavoatrial junction. Unchanged small left pleural effusion with associated atelectasis. No consolidation to suggest pneumonia. ??No pneumothorax. ??Cardiac mediastinal silhouette is stable. Electronically signed by: Gucci Moe M.D. Narrative 10/27/2023 10:55 AM SPRAY MIXER EXAMINATION: XR CHEST 1 VIEW HISTORY: pleural [...] by: Gucci Moe M.D. us Byron Olvera COORDINATOR OF HEALTH SERVICES IMG XR PROCEDURES Final Result * (ABNORMAL) Osmolality, blood (10/27/2023 6:02 AM SPRAY MIXER) Osmo 313(H) 275 - 295 mOsm/kg Blood 10/27/2023 6:02 AM SPRAY MIXER 10/27/2023 6:12 AM SPRAY MIXER Fernandez Carranza MD LAB BLOOD ORDERABLES Final Resu lt Performing Organization Address [facility] de Phone Number [facility] [address] [facility] [employer] [place], [place] [phone] * (ABNORMAL) TSH (10/27/2023 2:30 AM SPRAY MIXER) Pathologist [facility] Thyroid Stimulating Hormone 13.20(H) 0.30 - 4.20 mcIUnit/mL Blood 10/27/2023 2:30 AM SPRAY MIXER 10/27/2023 2:42 AM SPRAY MIXER Jaqueline Valero MD LAB BLOOD ORDERABLES Final Result Performing Organization Address [facility] de Phone Number [facility] [address] [facility] [place] [address] * (ABNORMAL) aPTT (10/27/2023 2:30 AM SPRAY MIXER) [facility] aPTT 91(H) 28 - 38 sec Comment: Interpretive Data Heparin therapeutic range: 66.0 - 100.0 seconds. Range based on correlation with therapeutic heparin activity range of 0.3 - 0.7 Units/mL. Current interpretive data was last revised on 2023. Blood 10/27/2023 2:30 AM SPRAY MIXER 10/27/2023 2:34 AM SPRAY MIXER Jaqueline Valero MD LAB BLOOD ORDERABLES Final Result Performing Organization Address [facility] de Phone Number [facility] [address] [facility] [place] [address] * eGFR (10/27/2023 2:30 AM SPRAY MIXER) Pathologist [facility] eGFR 6 mL/min/1. 73 m2 Comment: [...] last reviewed 2021. Blood 10/27/2023 2:30 AM SPRAY MIXER 10/27/2023 2:42 AM SPRAY MIXER us Byron Olvera NP LAB BLOOD ORDERABLES Fi nal Result [facility] [address] Department [place] [address] * (ABNORMAL) Protime-INR (10/27/2023 2:30 AM SPRAY MIXER) PT 22.7(H) 10.3 - 13.7 sec INR 1.99(H) 0.90 - 1.20 [facility] Comment: Interpretive data Oral anticoagulant therapeutic ranges: Venous thromboembolism prophylaxis or treatment: 2.0-3.0 CARDIOLOGY Standard range: 2.0-3.0 High-intensity range: 2.5-3.5 Refer to indication-specific guidelines for appropriate target ranges for prosthetic heart valve replacement. Current interpretive data was last revised on 2019. Blood 10/27/2023 2:30 AM SPRAY MIXER 10/27/2023 2:34 AM SPRAY MIXER us Byron Olvera COORDINATOR OF HEALTH SERVICES LAB BLOOD ORDERABLES Fi nal Result Performing Organization Address City/[facility]/ZIP Co de Phone Number [facility] [address] [place] [employer] [place] [address] * Magnesium (10/27/2023 2:30 AM SPRAY MIXER) [facility] Magnesium 2.3 1.4 - 2.5 mg/dL Blood 10/27/2023 2:30 AM SPRAY MIXER 10/27/2023 2:42 AM SPRAY MIXER Byron Olvera COORDINATOR OF HEALTH SERVICES LAB BLOOD ORDERABLES Fi nal Result Performing Organization Address [facility] Co de Phone Number [facility] [address] [place] [address] * (ABNORMAL) Renal function panel (10/27/2023 2:30 AM SPRAY MIXER) [facility] Sodium 123(L) 135 - 145 mmol/L Potassium, pl 4.2 3.3 - 4.9 mmol/L [facility] Chloride 85(L) 97 - 110 mmol/L [facility] CO2 24 22 - 32 mmol/L [facility] Anion gap 14 2 - 15 mmol/L [facility] BUN 87(H) 6 - 25 mg/dL [facility] Creatinine 10.09(H) 0.80 - 1.30 mg/dL [facility] Glucose 192 70 - 199 mg/dL [facility] Comment: Interpretive Data Fasting glucose >/= [...] 2022. Calcium 8.7 8.5 - 10.3 mg/dL [facility] Phosphorus, pl 7.1(H) 2.3 - 4.5 mg/dL [facility] Albumin 2.9(L) 3.5 - 5.0 g/dL [facility] Blood 10/27/2023 2:30 AM SPRAY MIXER 10/27/2023 2:42 AM SPRAY MIXER Byron Olvera NP LAB BLOOD ORDERABLES Fi nal Result Performing Organization Address [facility] Co de Phone Number [facility] [address] [employer] [place], [place] [phone] * (ABNORMAL) CBC without differential (10/27/2023 2:30 AM SPRAY MIXER) [facility] WBC 8.0 3.8 - 9.9 K/cumm Hgb 7.5(L) 13.0 - 17.5 g/dL [facility] Hct 23.7(L) 38.9 - 50.3 % [facility] Plt 222 150 - 400 K/cumm [facility] MPV 10.3 9.1 - 12.3 fL [facility] RBC 2.55(L) 4.30 - 5.80 M/cumm [facility] MCV 92.9 81.3 - 96.4 fL [facility] MCH 29.4 27.1 - 33.3 pg [facility] MCHC 31.6(L) 32.3 - 35.7 g/dL [facility] RDW CV 15.6(H) 11.1 - 14.9 % [facility] RDW SD 53.1(H) 35.7 - 48.1 fL [facility] NRBC abs 0.00 0.00 - 0.01 K/cumm [facility] Blood 10/27/2023 2:30 AM SPRAY MIXER 10/27/2023 2:42 AM SPRAY MIXER Byron Olvera NP LAB BLOOD ORDERABLES Fi nal Result Performing Organization Address [facility]/ZIP Co de Phone Number [facility] [address] Department [employer] [place], [place] [phone] * (ABNORMAL) POCT glucose (10/26/2023 11:15 PM SPRAY MIXER) Glucose, POC 220(H) 70 - 140 mg/dL Comment: For Glucose values <35 mg/dl when Hematocrit is >60 mg/dl,the test may not accurately detect significant hypoglycemia,and testing in the Laboratory should be considered if clinically indicated. Blood 10/26/2023 11:1 5 PM SPRAY MIXER 10/26/2023 11:15 PM SPRAY MIXER Jaqueline Valero MD LAB POCT ORDERABLES - APRIL CE Final Result Performing Organization Address [facility] Co de Phone Number [facility] [address] [facility] [place] [address] * (ABNORMAL) POCT glucose (10/26/2023 4:53 PM SPRAY MIXER) Glucose, POC 333(H) 70 - 140 mg/dL Comment: For Glucose values <35 mg/dl when Hematocrit is >60 mg/dl,the test may not accurately detect significant hypoglycemia,and testing in the Laboratory should be considered if clinically indicated. Blood 10/26/2023 4:53 PM SPRAY MIXER 10/26/2023 4:53 PM SPRAY MIXER Jaqueline Valero MD LAB POCT ORDERABLES - APRIL CE Final Result Performing Organization Address [facility] Co de Phone Number [facility] [address] [facility] [place] [address] * (ABNORMAL) POCT glucose (10/26/2023 11:57 AM SPRAY MIXER) Glucose, POC 203(H) 70 - 140 mg/dL Comment: For Glucose values <35 mg/dl when Hematocrit is >60 mg/dl,the test may not accurately detect significant hypoglycemia,and testing in the Laboratory should be considered if clinically indicated. Blood 10/26/2023 11:5 7 AM SPRAY MIXER 10/26/2023 11:57 AM SPRAY MIXER Jaqueline Valero MD LAB POCT ORDERABLES - APRIL CE Final Result Performing Organization Address [facility] Co de Phone Number [facility] [address] Department [place] [address] * POCT glucose (10/26/2023 8:00 AM SPRAY MIXER) [employer] Signature Glucose, POC 90 70 - 140 mg/dL Comment: For Glucose values <35 mg/dl when Hematocrit is >60 mg/dl,the test may not accurately detect significant hypoglycemia,and testing in the Laboratory should be considered if clinically indicated. Blood 10/26/2023 8:00 AM SPRAY MIXER 10/26/2023 8:00 AM SPRAY MIXER Jaqueline Valero MD LAB POCT ORDERABLES - APRIL CE Final Result Performing Organization Address [facility] de Phone Number [facility] [address] Department [place] [address] * XR Chest 1 View - Portable - in AM (10/26/2023 5:09 AM SPRAY MIXER) Anatomical Region Laterality Modality Body, Chest N/A Computed Radiogr aphy 10/26/2023 7:40 AM SPRAY MIXER Impressions 10/26/2023 7:40 AM SPRAY MIXER Comparison chest radiograph 10/25/2023 at 6:39 AM. [...] Chris Troncoso M.D. Narrative 10/26/2023 7:40 AM SPRAY MIXER EXAMINATION: ??1 view chest radiograph Procedure Note [...] signed by: Chris Troncoso M.D. Byron Olvera COORDINATOR OF HEALTH SERVICES IMG XR PROCEDURES Final Result * eGFR (10/26/2023 2:29 AM SPRAY MIXER) eGFR 6 mL/min/1. 73 m2 Comment: Interpretive [...] last reviewed 2021. Blood 10/26/2023 2:29 AM SPRAY MIXER 10/26/2023 3:11 AM SPRAY MIXER Byron Olvera COORDINATOR OF HEALTH SERVICES LAB BLOOD ORDERABLES Fi nal Result Performing Organization Address [facility] Co de Phone Number [facility] [address] [place] [address] * (ABNORMAL) aPTT (10/26/2023 2:29 AM SPRAY MIXER) aPTT 74(H) 28 - 38 sec Comment: Interpretive Data Heparin therapeutic range: 66.0 - 100.0 seconds. Range based on correlation with therapeutic heparin activity range of 0.3 - 0.7 Units/mL. Current interpretive data was last revised on 2023. Blood 10/26/2023 2:29 AM SPRAY MIXER 10/26/2023 2:57 AM SPRAY MIXER Jaqueline Valero MD LAB BLOOD ORDERABLES Final Result Performing Organization Address [facility] de Phone Number [facility] [address] [facility] [place] [address] * (ABNORMAL) Protime-INR (10/26/2023 2:29 AM SPRAY MIXER) PT 19.4(H) 10.3 - 13.7 sec INR 1.70(H) 0.90 - 1.20 [facility] Comment: Interpretive data Oral anticoagulant therapeutic ranges: Venous thromboembolism prophylaxis or treatment: 2.0-3.0 CARDIOLOGY Standard range: 2.0-3.0 High-intensity range: 2.5-3.5 Refer to indication-specific guidelines for appropriate target ranges for prosthetic heart valve replacement. Current interpretive data was last revised on 2019. Blood 10/26/2023 2:29 AM SPRAY MIXER 10/26/2023 2:57 AM SPRAY MIXER Byron Olvera COORDINATOR OF HEALTH SERVICES LAB BLOOD ORDERABLES Fi nal Result Performing Organization Address [facility] Co de Phone Number [facility] [address] [facility] [place] [address] * Magnesium (10/26/2023 2:29 AM SPRAY MIXER) [facility] Magnesium 2.2 1.4 - 2.5 mg/dL Blood 10/26/2023 2:29 AM SPRAY MIXER 10/26/2023 3:11 AM SPRAY MIXER Byron Olvrea COORDINATOR OF HEALTH SERVICES LAB BLOOD ORDERABLES Fi nal Result Performing Organization Address [facility] de Phone Number [facility] [address] [facility] [place] [address] * (ABNORMAL) Renal function panel (10/26/2023 2:29 AM SPRAY MIXER) [facility] Sodium 124(L) 135 - 145 mmol/L Potassium, pl 4.2 3.3 - 4.9 mmol/L [facility] Chloride 84(L) 97 - 110 mmol/L [facility] CO2 23 22 - 32 mmol/L [facility] Anion gap 17(H) 2 - 15 mmol/L [facility] BUN 85(H) 6 - 25 mg/dL [facility] Creatinine 9.95(H) 0.80 - 1.30 mg/dL [facility] Glucose 206(H) 70 - 199 mg/dL [facility] Comment: Interpretive Data Fasting glucose >/= [...] 2022. Calcium 8.6 8.5 - 10.3 mg/dL [facility] Phosphorus, pl 6.5(H) 2.3 - 4.5 mg/dL [facility] Albumin 3.0(L) 3.5 - 5.0 g/dL [facility] Blood 10/26/2023 2:29 AM SPRAY MIXER 10/26/2023 3:11 AM SPRAY MIXER Byron Olvera NP LAB BLOOD ORDERABLES Fi nal Result Performing Organization Address City/[facility]/ZIP Co de Phone Number [facility] [address] Department [place] [address] * (ABNORMAL) CBC without differential (10/26/2023 2:29 AM SPRAY MIXER) WBC 7.9 3.8 - 9.9 K/cumm Hgb 7.9(L) 13.0 - 17.5 g/dL [facility] Hct 24.7(L) 38.9 - 50.3 % [facility] Plt 209 150 - 400 K/cumm [facility] MPV 10.6 9.1 - 12.3 fL [facility] RBC 2.64(L) 4.30 - 5.80 M/cumm [facility] MCV 93.6 81.3 - 96.4 fL [facility] MCH 29.9 27.1 - 33.3 pg [facility] MCHC 32.0(L) 32.3 - 35.7 g/dL [facility] RDW CV 15.5(H) 11.1 - 14.9 % [facility] RDW SD 52.4(H) 35.7 - 48.1 fL [facility] NRBC abs 0.00 0.00 - 0.01 K/cumm [facility] Blood 10/26/2023 2:29 AM SPRAY MIXER 10/26/2023 3:11 AM SPRAY MIXER Byron Olvera NP LAB BLOOD ORDERABLES Fi nal Result Performing Organization Address City/[facility]/ZIP Co de Phone Number [facility] [address] [place] [address] * (ABNORMAL) aPTT (10/25/2023 9:15 PM SPRAY MIXER) aPTT 78(H) 28 - 38 sec Comment: Interpretive Data Heparin therapeutic range: 66.0 - 100.0 seconds. Range based on correlation with therapeutic heparin activity range of 0.3 - 0.7 Units/mL. Current interpretive data was last revised on 2023. Blood 10/25/2023 9:15 PM SPRAY MIXER 10/25/2023 9:19 PM SPRAY MIXER Jaqueline Valero MD LAB BLOOD ORDERABLES Final Result Performing Organization Address [facility] Co de Phone Number [facility] [address] [facility] [place] [address] * (ABNORMAL) POCT glucose (10/25/2023 9:14 PM SPRAY MIXER) Glucose, POC 147(H) 70 - 140 mg/dL Comment: For Glucose values <35 mg/dl when Hematocrit is >60 mg/dl,the test may not accurately detect significant hypoglycemia,and testing in the Laboratory should be considered if clinically indicated. Blood 10/25/2023 9:14 PM SPRAY MIXER 10/25/2023 9:14 PM SPRAY MIXER Jaqueline Valero MD LAB POCT ORDERABLES - APRIL CE Final Result Performing Organization Address [facility] Co de Phone Number [facility] [address] [facility] [place] [address] * (ABNORMAL) POCT glucose (10/25/2023 4:51 PM SPRAY MIXER) Glucose, POC 238(H) 70 - 140 mg/dL Comment: For Glucose values <35 mg/dl when Hematocrit is >60 mg/dl,the test may not accurately detect significant hypoglycemia,and testing in the Laboratory should be considered if clinically indicated. Blood 10/25/2023 4:51 PM SPRAY MIXER 10/25/2023 4:51 PM SPRAY MIXER Jaqueline Valero MD LAB POCT ORDERABLES - APRIL CE Final Result Performing Organization Address [facility] Co de Phone Number [facility] [address] [facility] [place] [address] * (ABNORMAL) aPTT (10/25/2023 2:48 PM SPRAY MIXER) aPTT 72(H) 28 - 38 sec Comment: Interpretive Data Heparin therapeutic range: 66.0 - 100.0 seconds. Range based on correlation with therapeutic heparin activity range of 0.3 - 0.7 Units/mL. Current interpretive data was last revised on 2023. Blood 10/25/2023 2:48 PM SPRAY MIXER 10/25/2023 3:04 PM SPRAY MIXER Jaqueline Valero MD LAB BLOOD ORDERABLES Final Result Performing Organization Address [facility] de Phone Number [facility] [address] [facility] [place] [address] * (ABNORMAL) POCT glucose (10/25/2023 11:15 AM SPRAY MIXER) Glucose, POC 208(H) 70 - 140 mg/dL Comment: For Glucose values <35 mg/dl when Hematocrit is >60 mg/dl,the test may not accurately detect significant hypoglycemia,and testing in the Laboratory should be considered if clinically indicated. Blood 10/25/2023 11:1 5 AM SPRAY MIXER 10/25/2023 11:15 AM SPRAY MIXER Jaqueline Valero MD LAB POCT ORDERABLES - APRIL CE Final Result Performing Organization Address [facility] Co de Phone Number [facility] [address] [facility] [place] [address] * POCT glucose (10/25/2023 9:49 AM SPRAY MIXER) Glucose, POC 119 70 - 140 mg/dL Comment: For Glucose values <35 mg/dl when Hematocrit is >60 mg/dl,the test may not accurately detect significant hypoglycemia,and testing in the Laboratory should be considered if clinically indicated. Blood 10/25/2023 9:49 AM SPRAY MIXER 10/25/2023 9:49 AM SPRAY MIXER Jaqueline Valero MD LAB POCT ORDERABLES - APRIL CE Final Result Performing Organization Address [facility] Co de Phone Number [facility] [address] [facility] [place] [address] * POCT glucose (10/25/2023 7:36 AM SPRAY MIXER) Glucose, POC 77 70 - 140 mg/dL [facility] Comment: For Glucose values <35 mg/dl when Hematocrit is >60 mg/dl,the test may not accurately detect significant hypoglycemia,and testing in the Laboratory should be considered if clinically indicated. Blood 10/25/2023 7:36 AM SPRAY MIXER 10/25/2023 7:36 AM SPRAY MIXER Jaqueline Valero MD LAB POCT ORDERABLES - APRIL CE Final Result Performing Organization Address [facility] de Phone Number [facility] [address] [place] [address] * XR Chest 1 View - Portable - in AM (10/25/2023 6:52 AM SPRAY MIXER) Anatomical Region Laterality Modality Body, Chest N/A Computed Radiogr aphy 10/25/2023 11:4 3 AM SPRAY MIXER Impressions 10/25/2023 1:22 PM SPRAY MIXER Comparison made to 10/24/2023. ??Sternal fixation wires [...] Arnoldo Abdul M.D. Narrative 10/25/2023 1:22 PM SPRAY MIXER EXAMINATION: XR CHEST 1 VIEW Procedure Note [...] by: Arnoldo Abdul M.D. us Byron Olvera COORDINATOR OF HEALTH SERVICES IMG XR PROCEDURES Final Result * (ABNORMAL) aPTT (10/25/2023 6:48 AM SPRAY MIXER) aPTT 65(H) 28 - 38 sec [facility] Comment: Interpretive Data Heparin therapeutic range: 66.0 - 100.0 seconds. Range based on correlation with therapeutic heparin activity range of 0.3 - 0.7 Units/mL. Current interpretive data was last revised on 2023. Blood 10/25/2023 6:48 AM SPRAY MIXER 10/25/2023 6:58 AM SPRAY MIXER us Jaqueline Valero MD LAB BLOOD ORDERABLES Final Result [facility] [address] Department [place] [address] * POCT glucose (10/25/2023 4:23 AM SPRAY MIXER) [facility] Glucose, POC 130 70 - 140 mg/dL [facility] Comment: For Glucose values <35 mg/dl when Hematocrit is >60 mg/dl,the test may not accurately detect significant hypoglycemia,and testing in the Laboratory should be considered if clinically indicated. Blood 10/25/2023 4:23 AM SPRAY MIXER 10/25/2023 4:23 AM SPRAY MIXER us Jaqueline Valero MD LAB POCT ORDERABLES - APRIL CE Final Result Performing Organization Address City/State/[facility] Co de Phone Number [facility] [address] Department [place] [address] * eGFR (10/25/2023 12:34 AM SPRAY MIXER) [facility] eGFR 5 mL/min/1. 73 m2 [facility] Comment: Interpretive Data Reference Interval Normal [...] reviewed 2021. Blood 10/25/2023 12:3 4 AM SPRAY MIXER 10/25/2023 12:42 AM SPRAY MIXER Byron Olvera NP LAB BLOOD ORDERABLES Fi nal Result Performing Organization Address [facility] Co de Phone Number [facility] [address] [facility] [place] [address] * Magnesium (10/25/2023 12:34 AM SPRAY MIXER) Pathologist [facility] Magnesium 2.3 1.4 - 2.5 mg/dL [facility] Blood 10/25/2023 12:3 4 AM SPRAY MIXER 10/25/2023 12:42 AM SPRAY MIXER Byron Olvera NP LAB BLOOD ORDERABLES Fi nal Result Performing Organization Address [facility] de Phone Number [facility] [address] [facility] [place] [address] * (ABNORMAL) Renal function panel (10/25/2023 12:34 AM SPRAY MIXER) Sodium 128(L) 135 - 145 mmol/L [facility] Potassium, pl 4.0 3.3 - 4.9 mmol/L [facility] Chloride 86(L) 97 - 110 mmol/L [facility] CO2 21(L) 22 - 32 mmol/L [facility] Anion gap 21(H) 2 - 15 mmol/L [facility] BUN 86(H) 6 - 25 mg/dL [facility] Creatinine 10.57(H) 0.80 - 1.30 mg/dL [facility] Glucose 97 70 - 199 mg/dL [facility] Comment: Interpretive Data Fasting glucose >/= [...] 2022. Calcium 9.0 8.5 - 10.3 mg/dL [facility] Phosphorus, pl 6.5(H) 2.3 - 4.5 mg/dL [facility] Albumin 2.9(L) 3.5 - 5.0 g/dL [facility] Blood 10/25/2023 12:3 4 AM SPRAY MIXER 10/25/2023 12:42 AM SPRAY MIXER Byron Olvera NP LAB BLOOD ORDERABLES Fi nal Result [facility] [address] Department [place] [address] * (ABNORMAL) CBC without differential (10/25/2023 12:34 AM SPRAY MIXER) WBC 8.2 3.8 - 9.9 K/cumm [facility] Hgb 7.8(L) 13.0 - 17.5 g/dL [facility] Hct 24.7(L) 38.9 - 50.3 % [facility] Plt 202 150 - 400 K/cumm [facility] MPV 10.2 9.1 - 12.3 fL [facility] RBC 2.65(L) 4.30 - 5.80 M/cumm [facility] MCV 93.2 81.3 - 96.4 fL [facility] MCH 29.4 27.1 - 33.3 pg [facility] MCHC 31.6(L) 32.3 - 35.7 g/dL [facility] RDW CV 15.9(H) 11.1 - 14.9 % [facility] RDW SD 53.1(H) 35.7 - 48.1 fL [facility] NRBC abs 0.00 0.00 - 0.01 K/cumm [facility] Blood 10/25/2023 12:3 4 AM SPRAY MIXER 10/25/2023 12:43 AM SPRAY MIXER Byron Olvera NP LAB BLOOD ORDERABLES Fi nal Result Performing Organization Address [facility] Co de Phone Number [facility] [address] Department [place] [address] * (ABNORMAL) Protime-INR (10/25/2023 12:33 AM SPRAY MIXER) PT 18.5(H) 10.3 - 13.7 sec [facility] INR 1.62(H) 0.90 - 1.20 [facility] Comment: Interpretive data Oral anticoagulant therapeutic ranges: Venous thromboembolism prophylaxis or treatment: 2.0-3.0 CARDIOLOGY Standard range: 2.0-3.0 High-intensity range: 2.5-3.5 Refer to indication-specific guidelines for appropriate target ranges for prosthetic heart valve replacement. Current interpretive data was last revised on 2019. Blood 10/25/2023 12:3 3 AM SPRAY MIXER 10/25/2023 12:40 AM SPRAY MIXER Jaqueline Valero MD LAB BLOOD ORDERABLES Final Result Performing Organization Address [facility] Co de Phone Number [facility] [address] Department [place] [address] * (ABNORMAL) aPTT (10/25/2023 12:33 AM SPRAY MIXER) aPTT 58(H) 28 - 38 sec [facility] Comment: Interpretive Data Heparin therapeutic range: 66.0 - 100.0 seconds. Range based on correlation with therapeutic heparin activity range of 0.3 - 0.7 Units/mL. Current interpretive data was last revised on 2023. Blood 10/25/2023 12:3 3 AM SPRAY MIXER 10/25/2023 12:40 AM SPRAY MIXER Jaqueline Valero MD LAB BLOOD ORDERABLES Final Result Performing Organization Address [facility] Co de Phone Number [facility] [address] [facility] [employer] [place], [place] [id number] * POCT glucose (10/24/2023 9:51 PM SPRAY MIXER) Glucose, POC 130 70 - 140 mg/dL [facility] Comment: For Glucose values <35 mg/dl when Hematocrit is >60 mg/dl,the test may not accurately detect significant hypoglycemia,and testing in the Laboratory should be considered if clinically indicated. Blood 10/24/2023 9:51 PM SPRAY MIXER 10/24/2023 9:51 PM SPRAY MIXER Jaqueline Valero MD LAB POCT ORDERABLES - APRIL CE Final Result Performing Organization Address [facility] Co de Phone Number [facility] [address] [facility] [employer] [place], [place] [id number] * (ABNORMAL) aPTT (10/24/2023 5:15 PM SPRAY MIXER) aPTT 45(H) 28 - 38 sec [facility] Comment: Interpretive Data Heparin therapeutic range: 66.0 - 100.0 seconds. Range based on correlation with therapeutic heparin activity range of 0.3 - 0.7 Units/mL. Current interpretive data was last revised on 2023. Blood 10/24/2023 5:15 PM SPRAY MIXER 10/24/2023 5:15 PM SPRAY MIXER us Jaqueline Valero MD LAB BLOOD ORDERABLES Final Result Performing Organization Address [facility] Co de Phone Number [facility] [address] [facility] [place] [place], [place] [id number] * (ABNORMAL) POCT glucose (10/24/2023 4:42 PM SPRAY MIXER) Glucose, POC 149(H) 70 - 140 mg/dL [facility] Comment: For Glucose values <35 mg/dl when Hematocrit is >60 mg/dl,the test may not accurately detect significant hypoglycemia,and testing in the Laboratory should be considered if clinically indicated. Blood 10/24/2023 4:42 PM SPRAY MIXER 10/24/2023 4:42 PM SPRAY MIXER Jaqueline Valero MD LAB POCT ORDERABLES - APRIL CE Final Result Performing Organization Address [facility] de Phone Number [facility] [address] [place] [address] * POCT glucose (10/24/2023 12:17 PM SPRAY MIXER) Glucose, POC 118 70 - 140 mg/dL [facility] Comment: For Glucose values <35 mg/dl when Hematocrit is >60 mg/dl,the test may not accurately detect significant hypoglycemia,and testing in the Laboratory should be considered if clinically indicated. Blood 10/24/2023 12:1 7 PM SPRAY MIXER 10/24/2023 12:17 PM SPRAY MIXER Jaqueline Valero MD LAB POCT ORDERABLES - APRIL CE Final Result Performing Organization Address [facility] de Phone Number [facility] [address] [place] [address] * (ABNORMAL) POCT glucose (10/24/2023 7:44 AM SPRAY MIXER) Glucose, POC 202(H) 70 - 140 mg/dL [facility] Comment: For Glucose values <35 mg/dl when Hematocrit is >60 mg/dl,the test may not accurately detect significant hypoglycemia,and testing in the Laboratory should be considered if clinically indicated. Blood 10/24/2023 7:44 AM SPRAY MIXER 10/24/2023 7:44 AM SPRAY MIXER Jaqueline Valero MD LAB POCT ORDERABLES - APRIL CE Final Result Performing Organization Address [facility] de Phone Number [facility] [address] [place] [phone] * XR Chest 1 View - Portable - in AM (10/24/2023 5:54 AM SPRAY MIXER) Anatomical Region Laterality Modality Body, Chest N/A Computed Radiogr aphy 10/24/2023 10:3 4 AM SPRAY MIXER Impressions 10/24/2023 10:34 AM SPRAY MIXER Comparison is made to single view chest [...] Tania Malone M.D. Narrative 10/24/2023 10:34 AM SPRAY MIXER EXAMINATION: 1 view chest radiograph Procedure Note [...] signed by: Tania Malone M.D. Byron Olvera COORDINATOR OF HEALTH SERVICES IMG XR PROCEDURES Final Result * eGFR (10/24/2023 1:03 AM SPRAY MIXER) eGFR 5 mL/min/1. 73 m2 [facility] Comment: Interpretive Data Reference Interval Normal ?>/= [...] last reviewed 2021. Blood 10/24/2023 1:03 AM SPRAY MIXER 10/24/2023 1:13 AM SPRAY MIXER us Byron Olvera NP LAB BLOOD ORDERABLES Fi nal Result [facility] [address] Department [place] [address] * (ABNORMAL) Protime-INR (10/24/2023 1:03 AM SPRAY MIXER) PT 18.2(H) 10.3 - 13.7 sec [facility] INR 1.60(H) 0.90 - 1.20 [facility] Comment: Interpretive data Oral anticoagulant therapeutic ranges: Venous thromboembolism prophylaxis or treatment: 2.0-3.0 CARDIOLOGY Standard range: 2.0-3.0 High-intensity range: 2.5-3.5 Refer to indication-specific guidelines for appropriate target ranges for prosthetic heart valve replacement. Current interpretive data was last revised on 2019. Blood 10/24/2023 1:03 AM SPRAY MIXER 10/24/2023 1:13 AM SPRAY MIXER Byron Olvera NP LAB BLOOD ORDERABLES Fi nal Result Performing Organization Address City/[facility]/ZIP Co de Phone Number [facility] [address] [place] [address] * Magnesium (10/24/2023 1:03 AM SPRAY MIXER) Pathologist [facility] Magnesium 2.2 1.4 - 2.5 mg/dL [facility] Blood 10/24/2023 1:03 AM SPRAY MIXER 10/24/2023 1:13 AM SPRAY MIXER Byron Rudi Olvera NP LAB BLOOD ORDERABLES Fi nal Result Performing Organization Address [facility] Co de Phone Number [facility] [address] [place] [address] * (ABNORMAL) Renal function panel (10/24/2023 1:03 AM SPRAY MIXER) Sodium 127(L) 135 - 145 mmol/L [facility] Potassium, pl 4.2 3.3 - 4.9 mmol/L [facility] Chloride 86(L) 97 - 110 mmol/L [facility] CO2 21(L) 22 - 32 mmol/L [facility] Anion gap 20(H) 2 - 15 mmol/L [facility] BUN 90(H) 6 - 25 mg/dL [facility] Creatinine 11.24(H) 0.80 - 1.30 mg/dL [facility] Glucose 143 70 - 199 mg/dL [facility] Comment: Interpretive Data Fasting glucose >/= [...] 2022. Calcium 8.6 8.5 - 10.3 mg/dL [facility] Phosphorus, pl 6.1(H) 2.3 - 4.5 mg/dL [facility] Albumin 2.7(L) 3.5 - 5.0 g/dL [facility] Blood 10/24/2023 1:03 AM SPRAY MIXER 10/24/2023 1:13 AM SPRAY MIXER Byron Olvera NP LAB BLOOD ORDERABLES Fi nal Result Performing Organization Address City/[facility]/ZIP Co de Phone Number [facility] [address] [place] [employer] [place] [address] * (ABNORMAL) CBC without differential (10/24/2023 1:03 AM SPRAY MIXER) WBC 9.3 3.8 - 9.9 K/cumm [facility] Hgb 7.6(L) 13.0 - 17.5 g/dL [facility] Hct 24.4(L) 38.9 - 50.3 % [facility] Plt 184 150 - 400 K/cumm [facility] MPV 10.5 9.1 - 12.3 fL [facility] RBC 2.58(L) 4.30 - 5.80 M/cumm [facility] MCV 94.6 81.3 - 96.4 fL [facility] MCH 29.5 27.1 - 33.3 pg [facility] MCHC 31.1(L) 32.3 - 35.7 g/dL [facility] RDW CV 15.9(H) 11.1 - 14.9 % [facility] RDW SD 53.1(H) 35.7 - 48.1 fL [facility] NRBC abs 0.00 0.00 - 0.01 K/cumm [facility] Blood 10/24/2023 1:03 AM SPRAY MIXER 10/24/2023 1:13 AM SPRAY MIXER Byron Olvera NP LAB BLOOD ORDERABLES Fi nal Result [facility] [address] [employer] [place], [place] [phone] * POCT glucose (10/23/2023 11:14 PM SPRAY MIXER) Glucose, POC 128 70 - 140 mg/dL [facility] Comment: For Glucose values <35 mg/dl when Hematocrit is >60 mg/dl,the test may not accurately detect significant hypoglycemia,and testing in the Laboratory should be considered if clinically indicated. Blood 10/23/2023 11:1 4 PM SPRAY MIXER 10/23/2023 11:14 PM SPRAY MIXER Jaqueline Valero MD LAB POCT ORDERABLES - APRIL CE Final Result Performing Organization Address [facility] Co de Phone Number [facility] [address] [facility] [place] [address] * POCT glucose (10/23/2023 10:43 PM SPRAY MIXER) Glucose, POC 92 70 - 140 mg/dL [facility] Comment: For Glucose values <35 mg/dl when Hematocrit is >60 mg/dl,the test may not accurately detect significant hypoglycemia,and testing in the Laboratory should be considered if clinically indicated. Blood 10/23/2023 10:4 3 PM SPRAY MIXER 10/23/2023 10:43 PM SPRAY MIXER Jaqueline Valero MD LAB POCT ORDERABLES - APRIL CE Final Result Performing Organization Address [facility] Co de Phone Number [facility] [address] [facility] [place] [address] * POCT glucose (10/23/2023 5:12 PM SPRAY MIXER) Glucose, POC 113 70 - 140 mg/dL [facility] Comment: For Glucose values <35 mg/dl when Hematocrit is >60 mg/dl,the test may not accurately detect significant hypoglycemia,and testing in the Laboratory should be considered if clinically indicated. Blood 10/23/2023 5:12 PM SPRAY MIXER 10/23/2023 5:12 PM SPRAY MIXER Jaqueline Valero MD LAB POCT ORDERABLES - APRIL CE Final Result Performing Organization Address [facility] de Phone Number [facility] [address] [facility] [employer] [place], [place] [phone] * (ABNORMAL) POCT glucose (10/23/2023 12:08 PM SPRAY MIXER) Glucose, POC 203(H) 70 - 140 mg/dL [facility] Comment: For Glucose values <35 mg/dl when Hematocrit is >60 mg/dl,the test may not accurately detect significant hypoglycemia,and testing in the Laboratory should be considered if clinically indicated. Blood 10/23/2023 12:0 8 PM SPRAY M[employer]ER 10/23/2023 12:08 PM SPRAY M[employer]ER Jaqueline Valero MD LAB POCT ORDERABLES - APRIL CE Final Result Performing Organization Address [facility] de Phone Number [facility] [address] [facility] [place] [address] * (ABNORMAL) POCT glucose (10/23/2023 7:54 AM SPRAY MIXER) Glucose, POC 205(H) 70 - 140 mg/dL [facility] Comment: For Glucose values <35 mg/dl when Hematocrit is >60 mg/dl,the test may not accurately detect significant hypoglycemia,and testing in the Laboratory should be considered if clinically indicated. Blood 10/23/2023 7:54 AM SPRAY MIXER 10/23/2023 7:54 AM SPRAY MIXER Jaqueline Valero MD LAB POCT ORDERABLES - APRIL CE Final Result Performing Organization Address [facility] Co de Phone Number [facility] [address] [facility] [place] [address] * XR Chest 1 View - Portable - in AM (10/23/2023 6:24 AM SPRAY MIXER) Anatomical Region Laterality Modality Body, Chest N/A Computed Radiogr aphy 10/23/2023 7:12 AM SPRAY MIXER Impressions 10/23/2023 7:12 AM SPRAY MIXER Comparison is made to 10/22/2023. ??There are [...] Manuel Bruno M.D. Narrative 10/23/2023 7:12 AM SPRAY MIXER Examination: Chest one view Procedure Note Manuel [...] Final Result * eGFR (10/23/2023 1:53 AM SPRAY MIXER) eGFR 5 mL/min/1. 73 m2 [facility] Comment: Interpretive Data Reference Interval Normal ?>/= [...] last reviewed 2021. Blood 10/23/2023 1:53 AM SPRAY MIXER 10/23/2023 2:08 AM SPRAY MIXER Byron Olvera NP LAB BLOOD ORDERABLES Fi nal Result Performing Organization Address [facility] de Phone Number [facility] [address] [place] [employer] [place] [address] * (ABNORMAL) Protime-INR (10/23/2023 1:53 AM SPRAY MIXER) PT 24.9(H) 10.3 - 13.7 sec [facility] INR 2.18(H) 0.90 - 1.20 [facility] Comment: Interpretive data Oral anticoagulant therapeutic ranges: Venous thromboembolism prophylaxis or treatment: 2.0-3.0 CARDIOLOGY Standard range: 2.0-3.0 High-intensity range: 2.5-3.5 Refer to indication-specific guidelines for appropriate target ranges for prosthetic heart valve replacement. Current interpretive data was last revised on 2019. Blood 10/23/2023 1:53 AM SPRAY MIXER 10/23/2023 2:08 AM SPRAY MIXER Byron Olvera NP LAB BLOOD ORDERABLES Fi nal Result Performing Organization Address [facility] de Phone Number [facility] [address] Department [place] [address] * Magnesium (10/23/2023 1:53 AM SPRAY MIXER) Pathologist [facility] Magnesium 2.4 1.4 - 2.5 mg/dL [facility] Blood 10/23/2023 1:53 AM SPRAY MIXER 10/23/2023 2:08 AM SPRAY MIXER Byron Olvera NP LAB BLOOD ORDERABLES Fi nal Result [facility] [address] Department [place] [address] * (ABNORMAL) Renal function panel (10/23/2023 1:53 AM SPRAY MIXER) Pathologist [facility] Sodium 132(L) 135 - 145 mmol/L [facility] Potassium, pl 4.3 3.3 - 4.9 mmol/L [facility] Chloride 91(L) 97 - 110 mmol/L [facility] CO2 20(L) 22 - 32 mmol/L [facility] Anion gap 21(H) 2 - 15 mmol/L [facility] BUN 91(H) 6 - 25 mg/dL [facility] Creatinine 11.59(H) 0.80 - 1.30 mg/dL [facility] Glucose 176 70 - 199 mg/dL [facility] Comment: Interpretive Data Fasting glucose >/= [...] 2022. Calcium 9.0 8.5 - 10.3 mg/dL [facility] Phosphorus, pl 6.2(H) 2.3 - 4.5 mg/dL [facility] Albumin 2.6(L) 3.5 - 5.0 g/dL [facility] Blood 10/23/2023 1:53 AM SPRAY MIXER 10/23/2023 2:08 AM SPRAY MIXER Byron Olvera NP LAB BLOOD ORDERABLES Fi nal Result Performing Organization Address [facility] Co de Phone Number [facility] [address] Department [employer] [place], [place] [id number] * (ABNORMAL) CBC without differential (10/23/2023 1:53 AM SPRAY MIXER) Pathologist [facility] WBC 11.7(H) 3.8 - 9.9 K/cumm [facility] Hgb 8.5(L) 13.0 - 17.5 g/dL [facility] Hct 27.3(L) 38.9 - 50.3 % [facility] Plt 207 150 - 400 K/cumm [facility] MPV 10.5 9.1 - 12.3 fL [facility] RBC 2.86(L) 4.30 - 5.80 M/cumm [facility] MCV 95.5 81.3 - 96.4 fL [facility] MCH 29.7 27.1 - 33.3 pg [facility] MCHC 31.1(L) 32.3 - 35.7 g/dL [facility] RDW CV 15.9(H) 11.1 - 14.9 % [facility] RDW SD 53.6(H) 35.7 - 48.1 fL [facility] NRBC abs 0.00 0.00 - 0.01 K/cumm [facility] Blood 10/23/2023 1:53 AM SPRAY MIXER 10/23/2023 2:08 AM SPRAY MIXER Byron Olvera NP LAB BLOOD ORDERABLES Fi nal Result Performing Organization Address [facility] Co de Phone Number [facility] [address] Department [employer] [place], [place] [id number] * (ABNORMAL) POCT glucose (10/22/2023 11:55 PM SPRAY MIXER) Glucose, POC 142(H) 70 - 140 mg/dL [facility] Comment: For Glucose values <35 mg/dl when Hematocrit is >60 mg/dl,the test may not accurately detect significant hypoglycemia,and testing in the Laboratory should be considered if clinically indicated. Blood 10/22/2023 11:5 5 PM SPRAY MIXER 10/22/2023 11:55 PM SPRAY MIXER Result [facility] Jaqueline Valero MD LAB POCT ORDERABLES - APRIL CE Final Result Performing Organization Address [facility] de Phone Number [facility] [address] [facility] [place] [address] * (ABNORMAL) POCT glucose (10/22/2023 9:12 PM SPRAY MIXER) Glucose, POC 161(H) 70 - 140 mg/dL [facility] Comment: For Glucose values <35 mg/dl when Hematocrit is >60 mg/dl,the test may not accurately detect significant hypoglycemia,and testing in the Laboratory should be considered if clinically indicated. Blood 10/22/2023 9:12 PM SPRAY MIXER 10/22/2023 9:12 PM SPRAY MIXER Result [facility] Jaqueline Valero MD LAB POCT ORDERABLES - APRIL CE Final Result Performing Organization Address [facility] de Phone Number [facility] [address] [facility] [place] [address] * POCT glucose (10/22/2023 5:22 PM SPRAY MIXER) Glucose, POC 102 70 - 140 mg/dL [facility] Comment: For Glucose values <35 mg/dl when Hematocrit is >60 mg/dl,the test may not accurately detect significant hypoglycemia,and testing in the Laboratory should be considered if clinically indicated. Blood 10/22/2023 5:22 PM SPRAY MIXER 10/22/2023 5:22 PM SPRAY MIXER Result [facility] Jaqueline Valero MD LAB POCT ORDERABLES - APRIL CE Final Result Performing Organization Address [facility] Co de Phone Number [facility] [address] [facility] [place] [address] * (ABNORMAL) POCT glucose (10/22/2023 12:49 PM SPRAY MIXER) Glucose, POC 177(H) 70 - 140 mg/dL [facility] Comment: For Glucose values <35 mg/dl when Hematocrit is >60 mg/dl,the test may not accurately detect significant hypoglycemia,and testing in the Laboratory should be considered if clinically indicated. Blood 10/22/2023 12:4 9 PM SPRAY MIXER 10/22/2023 12:49 PM SPRAY MIXER Jaqueline Valero MD LAB POCT ORDERABLES - APRIL CE Final Result Performing Organization Address [facility] de Phone Number [facility] [address] [facility] [place] [address] * (ABNORMAL) POCT glucose (10/22/2023 8:12 AM SPRAY MIXER) Glucose, POC 158(H) 70 - 140 mg/dL [facility] Comment: For Glucose values <35 mg/dl when Hematocrit is >60 mg/dl,the test may not accurately detect significant hypoglycemia,and testing in the Laboratory should be considered if clinically indicated. Blood 10/22/2023 8:12 AM SPRAY MIXER 10/22/2023 8:12 AM SPRAY MIXER Jaqueline Valero MD LAB POCT ORDERABLES - APRIL CE Final Result Performing Organization Address [facility] Co de Phone Number [facility] [address] [place] [address] * XR Chest 1 View - Portable - in AM (10/22/2023 6:38 AM SPRAY MIXER) Anatomical Region Laterality Modality Body, Chest N/A Computed Radiogr aphy 10/22/2023 8:02 AM SPRAY MIXER Impressions 10/22/2023 8:02 AM SPRAY MIXER Comparison is made to single view chest radiograph dated 10/21/2023. ??Sternotomy wires and sternal plates are unchanged. Right internal jugular central venous catheter tip overlies the superior vena cava. Persistent small lung volumes with bilateral subsegmental atelectasis. ??Trace left pleural effusion. ??No pneumothorax. Cardiomediastinal silhouette is stable. Electronically signed by: Tania Malone M.D. Narrative 10/22/2023 8:02 AM SPRAY MIXER EXAMINATION: 1 view chest radiograph Procedure Note [...] signed by: Tania Malone M.D. Byron Olvera COORDINATOR OF HEALTH SERVICES IMG XR PROCEDURES Final Result * eGFR (10/22/2023 12:31 AM SPRAY MIXER) [employer] Signature eGFR 5 mL/min/1. 73 m2 [facility] Comment: Interpretive Data Reference Interval Normal [...] reviewed 2021. Blood 10/22/2023 12:3 1 AM SPRAY MIXER 10/22/2023 1:00 AM SPRAY MIXER Byron Olvera NP LAB BLOOD ORDERABLES Fi nal Result Performing Organization Address [facility] de Phone Number [facility] [address] [place] [employer] [place] [address] * (ABNORMAL) Protime-INR (10/22/2023 12:31 AM SPRAY MIXER) PT 48.4(H) 10.3 - 13.7 sec [facility] INR 4.25(H) 0.90 - 1.20 [facility] Comment: Interpretive data Oral anticoagulant therapeutic ranges: Venous thromboembolism prophylaxis or treatment: 2.0-3.0 CARDIOLOGY Standard range: 2.0-3.0 High-intensity range: 2.5-3.5 Refer to indication-specific guidelines for appropriate target ranges for prosthetic heart valve replacement. Current interpretive data was last revised on 2019. Blood 10/22/2023 12:3 1 AM SPRAY MIXER 10/22/2023 1:00 AM SPRAY MIXER Byron Olvera NP LAB BLOOD ORDERABLES Fi nal Result Performing Organization Address [facility] Co de Phone Number [facility] [address] [employer] [place], [place] [id number] * Magnesium (10/22/2023 12:31 AM SPRAY MIXER) Magnesium 2.4 1.4 - 2.5 mg/dL [facility] Blood 10/22/2023 12:3 1 AM SPRAY MIXER 10/22/2023 1:00 AM SPRAY MIXER Byron Olvrea COORDINATOR OF HEALTH SERVICES LAB BLOOD ORDERABLES Fi nal Result [facility] [address] Department [place] [address] * (ABNORMAL) Renal function panel (10/22/2023 12:31 AM SPRAY MIXER) Pathologist [facility] Sodium 134(L) 135 - 145 mmol/L [facility] Potassium, pl 4.3 3.3 - 4.9 mmol/L [facility] Chloride 93(L) 97 - 110 mmol/L [facility] CO2 21(L) 22 - 32 mmol/L [facility] Anion gap 20(H) 2 - 15 mmol/L [facility] BUN 87(H) 6 - 25 mg/dL [facility] Creatinine 11.33(H) 0.80 - 1.30 mg/dL [facility] Glucose 212(H) 70 - 199 mg/dL [facility] Comment: Interpretive Data Fasting glucose >/= [...] 2022. Calcium 8.8 8.5 - 10.3 mg/dL [facility] Phosphorus, pl 7.3(H) 2.3 - 4.5 mg/dL [facility] Albumin 2.8(L) 3.5 - 5.0 g/dL [facility] Blood 10/22/2023 12:3 1 AM SPRAY MIXER 10/22/2023 1:00 AM SPRAY MIXER Byron Olvera NP LAB BLOOD ORDERABLES Fi nal Result Performing Organization Address [facility]/ZIP Co de Phone Number [facility] [address] [place] [employer] [place] [address] * (ABNORMAL) CBC without differential (10/22/2023 12:31 AM SPRAY MIXER) Pathologist [facility] WBC 10.6(H) 3.8 - 9.9 K/cumm [facility] Hgb 8.5(L) 13.0 - 17.5 g/dL [facility] Hct 27.2(L) 38.9 - 50.3 % [facility] Plt 201 150 - 400 K/cumm [facility] MPV 11.2 9.1 - 12.3 fL [facility] RBC 2.88(L) 4.30 - 5.80 M/cumm [facility] MCV 94.4 81.3 - 96.4 fL [facility] MCH 29.5 27.1 - 33.3 pg [facility] MCHC 31.3(L) 32.3 - 35.7 g/dL [facility] RDW CV 15.8(H) 11.1 - 14.9 % [facility] RDW SD 54.0(H) 35.7 - 48.1 fL [facility] NRBC abs 0.02(H) 0.00 - 0.01 K/cumm [facility] Blood 10/22/2023 12:3 1 AM SPRAY MIXER 10/22/2023 1:00 AM SPRAY MIXER Byron Olvera NP LAB BLOOD ORDERABLES Fi nal Result Performing Organization Address City/[facility]/ZIP Co de Phone Number [facility] [address] [place] [address] * (ABNORMAL) POCT glucose (10/21/2023 9:31 PM SPRAY MIXER) Pathologist [facility] Glucose, POC 249(H) 70 - 140 mg/dL [facility] Comment: For Glucose values <35 mg/dl when Hematocrit is >60 mg/dl,the test may not accurately detect significant hypoglycemia,and testing in the Laboratory should be considered if clinically indicated. Blood 10/21/2023 9:31 PM SPRAY MIXER 10/21/2023 9:31 PM SPRAY MIXER Jaqueline Valero MD LAB POCT ORDERABLES - APRIL CE Final Result Performing Organization Address [facility] de Phone Number [facility] [address] [facility] [place] [address] * (ABNORMAL) POCT glucose (10/21/2023 5:16 PM SPRAY MIXER) Glucose, POC 166(H) 70 - 140 mg/dL [facility] Comment: For Glucose values <35 mg/dl when Hematocrit is >60 mg/dl,the test may not accurately detect significant hypoglycemia,and testing in the Laboratory should be considered if clinically indicated. Blood 10/21/2023 5:16 PM SPRAY MIXER 10/21/2023 5:16 PM SPRAY MIXER Jaqueline Valero MD LAB POCT ORDERABLES - APRIL CE Final Result Performing Organization Address [facility] de Phone Number [facility] [address] [place] [address] * (ABNORMAL) POCT glucose (10/21/2023 12:29 PM SPRAY MIXER) Glucose, POC 266(H) 70 - 140 mg/dL [facility] Comment: For Glucose values <35 mg/dl when Hematocrit is >60 mg/dl,the test may not accurately detect significant hypoglycemia,and testing in the Laboratory should be considered if clinically indicated. Blood 10/21/2023 12:2 9 PM SPRAY MIXER 10/21/2023 12:29 PM SPRAY MIXER Jaqueline Valero MD LAB POCT ORDERABLES - APRIL CE Final Result Performing Organization Address [facility] Co de Phone Number [facility] [address] Department [place] [address] * (ABNORMAL) POCT glucose (10/21/2023 8:06 AM SPRAY MIXER) Glucose, POC 294(H) 70 - 140 mg/dL [facility] Comment: For Glucose values <35 mg/dl when Hematocrit is >60 mg/dl,the test may not accurately detect significant hypoglycemia,and testing in the Laboratory should be considered if clinically indicated. Blood 10/21/2023 8:06 AM SPRAY MIXER 10/21/2023 8:06 AM SPRAY MIXER us Jaqueline Valero MD LAB POCT ORDERABLES - APRIL CE Final Result [facility] [address] Department [place] [address] * XR Chest 1 View - Portable - in AM (10/21/2023 6:51 AM SPRAY MIXER) Anatomical Region Laterality Modality Body, Chest N/A Computed Radiogr aphy 10/21/2023 7:17 AM SPRAY MIXER Impressions 10/21/2023 7:17 AM SPRAY MIXER Small left effusion and bilateral lower lobe atelectasis. Electronically signed by: Eric Cuevas M.D. Narrative 10/21/2023 7:17 AM SPRAY MIXER EXAMINATION: XR CHEST 1 VIEW DATE: 10/21/2023 [...] by: Eric Cuevas M.D. us Byron Olvera COORDINATOR OF HEALTH SERVICES IMG XR PROCEDURES Final Result * ECG 12 lead (10/21/2023 4:39 AM SPRAY MIXER) 10/21/2023 4:39 AM SPRAY MIXER Narrative [facility] - 10/21/2023 8:34 AM SPRAY MIXER Vent Rate: 100 bpm RR Interval: 599 msec IA Interval: 0 msec QRS Duration: 145 msec QT Interval: 394 msec QTC Interval: 451 msec P-R-T [place]: 0 - -9 - 132 degrees IMPRESSION: NORMAL SINUS RHYTHM [REASON: NORMAL P AXIS, IA, RATE \T\ RHYTHM] LEFT BUNDLE BRANCH BLOCK OCCASIONAL PVC Electronically Signed By: Jesus Huerta MD us Linda Oliva NP ECG ORDERABLES Final Result [facility] [employer] [facility] * eGFR (10/21/2023 1:40 AM SPRAY MIXER) eGFR 5 mL/min/1. 73 m2 [facility] Comment: Interpretive Data Reference Interval Normal [...] last reviewed 2021. Blood 10/21/2023 1:40 AM SPRAY MIXER 10/21/2023 1:59 AM SPRAY MIXER Byron Olvera NP LAB BLOOD ORDERABLES Fi nal Result Performing Organization Address [facility] Co de Phone Number [facility] [address] [place] [employer] [place] [address] * (ABNORMAL) Protime-INR (10/21/2023 1:40 AM SPRAY MIXER) PT 54.3(H) 10.3 - 13.7 sec [facility] INR 4.76(H) 0.90 - 1.20 [facility] Comment: Interpretive data Oral anticoagulant therapeutic ranges: Venous thromboembolism prophylaxis or treatment: 2.0-3.0 CARDIOLOGY Standard range: 2.0-3.0 High-intensity range: 2.5-3.5 Refer to indication-specific guidelines for appropriate target ranges for prosthetic heart valve replacement. Current interpretive data was last revised on 2019. Blood 10/21/2023 1:40 AM SPRAY MIXER 10/21/2023 1:58 AM SPRAY MIXER Byron Olvera NP LAB BLOOD ORDERABLES Fi nal Result Performing Organization Address [facility] Co de Phone Number [facility] [address] [place] [employer] [place] [address] * Magnesium (10/21/2023 1:40 AM SPRAY MIXER) Magnesium 2.4 1.4 - 2.5 mg/dL [facility] Blood 10/21/2023 1:40 AM SPRAY MIXER 10/21/2023 1:59 AM SPRAY MIXER Byron Olvera NP LAB BLOOD ORDERABLES Fi nal Result [facility] [address] Department [place] [address] * (ABNORMAL) Renal function panel (10/21/2023 1:40 AM SPRAY MIXER) Pathologist [facility] Sodium 134(L) 135 - 145 mmol/L [facility] Potassium, pl 4.5 3.3 - 4.9 mmol/L [facility] Chloride 93(L) 97 - 110 mmol/L [facility] CO2 22 22 - 32 mmol/L [facility] Anion gap 19(H) 2 - 15 mmol/L [facility] BUN 81(H) 6 - 25 mg/dL [facility] Creatinine 11.40(H) 0.80 - 1.30 mg/dL [facility] Glucose 289(H) 70 - 199 mg/dL [facility] Comment: Interpretive Data Fasting glucose >/= [...] 2022. Calcium 8.6 8.5 - 10.3 mg/dL [facility] Phosphorus, pl 8.2(H) 2.3 - 4.5 mg/dL [facility] Albumin 2.7(L) 3.5 - 5.0 g/dL [facility] Blood 10/21/2023 1:40 AM SPRAY MIXER 10/21/2023 1:59 AM SPRAY MIXER Byron Olvera NP LAB BLOOD ORDERABLES Fi nal Result Performing Organization Address [facility] Co de Phone Number [facility] [address] [place] [address] * (ABNORMAL) CBC without differential (10/21/2023 1:40 AM SPRAY MIXER) [facility] WBC 8.2 3.8 - 9.9 K/cumm [facility] Hgb 8.0(L) 13.0 - 17.5 g/dL [facility] Hct 25.6(L) 38.9 - 50.3 % [facility] Plt 185 150 - 400 K/cumm [facility] MPV 11.1 9.1 - 12.3 fL [facility] RBC 2.72(L) 4.30 - 5.80 M/cumm [facility] MCV 94.1 81.3 - 96.4 fL [facility] MCH 29.4 27.1 - 33.3 pg [facility] MCHC 31.3(L) 32.3 - 35.7 g/dL [facility] RDW CV 16.5(H) 11.1 - 14.9 % [facility] RDW SD 55.9(H) 35.7 - 48.1 fL [facility] NRBC abs 0.02(H) 0.00 - 0.01 K/cumm [facility] Blood 10/21/2023 1:40 AM SPRAY MIXER 10/21/2023 1:59 AM SPRAY MIXER Byron Olvera NP LAB BLOOD ORDERABLES Fi nal Result Performing Organization Address [facility] Co de Phone Number [facility] [address] [place] [address] * (ABNORMAL) POCT glucose (10/20/2023 9:24 PM SPRAY MIXER) [facility] Glucose, POC 234(H) 70 - 140 mg/dL [facility] Comment: For Glucose values <35 mg/dl when Hematocrit is >60 mg/dl,the test may not accurately detect significant hypoglycemia,and testing in the Laboratory should be considered if clinically indicated. Blood 10/20/2023 9:24 PM SPRAY MIXER 10/20/2023 9:24 PM SPRAY MIXER Jaqueline Valero MD LAB POCT ORDERABLES - APRIL CE Final Result Performing Organization Address [facility] Co de Phone Number [facility] [address] [place] [address] * POCT glucose (10/20/2023 5:24 PM SPRAY MIXER) [facility] Glucose, POC 89 70 - 140 mg/dL [facility] Comment: For Glucose values <35 mg/dl when Hematocrit is >60 mg/dl,the test may not accurately detect significant hypoglycemia,and testing in the Laboratory should be considered if clinically indicated. Blood 10/20/2023 5:24 PM SPRAY MIXER 10/20/2023 5:24 PM SPRAY MIXER Jaqueline Valero MD LAB POCT ORDERABLES - APRIL CE Final Result Performing Organization Address [facility] de Phone Number [facility] [address] [place] [address] * Critical Care (10/20/2023 12:45 PM SPRAY MIXER) Narrative Kirsten Burns MD - 10/20/2023 12:45 PM SPRAY MIXER Byron Olvera NP ? 10/21/2023 10:22 AM Critical Care Performed by: Byron Olvera NP Authorized by: Byron Olvera NP ?? CRITICAL CARE: ??Team: ??[facility] ??Shift: ??AM ??Level of Billing: ??Subsequent [...] plan with the patient's team and other medical/technology applications consultant staff. This time was in addition to and separate from care provided by other practitioners on this day of service. ?? Byron Olvera COORDINATOR OF HEALTH SERVICES IN CLINIC/BEDSIDE ORDER ROVERTO Final Result * POCT glucose (10/20/2023 11:47 AM SPRAY MIXER) Glucose, POC 115 70 - 140 mg/dL [facility] Comment: For Glucose values <35 mg/dl when Hematocrit is >60 mg/dl,the test may not accurately detect significant hypoglycemia,and testing in the Laboratory should be considered if clinically indicated. Blood 10/20/2023 11:4 7 AM SPRAY MIXER 10/20/2023 11:47 AM SPRAY MIXER Jaqueline Valero MD LAB POCT ORDERABLES - APRIL CE Final Result Performing Organization Address [facility] Co de Phone Number [facility] [address] [facility] [place], [place] [id number] * POCT glucose (10/20/2023 10:09 AM SPRAY MIXER) Glucose, POC 87 70 - 140 mg/dL [facility] Comment: For Glucose values <35 mg/dl when Hematocrit is >60 mg/dl,the test may not accurately detect significant hypoglycemia,and testing in the Laboratory should be considered if clinically indicated. Blood 10/20/2023 10:0 9 AM SPRAY MIXER 10/20/2023 10:09 AM SPRAY MIXER Jaqueline Valero MD LAB POCT ORDERABLES - APRIL CE Final Result Performing Organization Address [facility] Co de Phone Number [facility] [address] [facility] [place] [address] * POCT glucose (10/20/2023 9:15 AM SPRAY MIXER) Glucose, POC 102 70 - 140 mg/dL [facility] Comment: For Glucose values <35 mg/dl when Hematocrit is >60 mg/dl,the test may not accurately detect significant hypoglycemia,and testing in the Laboratory should be considered if clinically indicated. Blood 10/20/2023 9:15 AM SPRAY MIXER 10/20/2023 9:15 AM SPRAY MIXER Jaqueline aVlero MD LAB POCT ORDERABLES - APRIL CE Final Result Performing Organization Address [facility] Co de Phone Number [facility] [address] Department [place] [address] * POCT glucose (10/20/2023 7:23 AM SPRAY MIXER) [facility] Glucose, POC 109 70 - 140 mg/dL [facility] Comment: For Glucose values <35 mg/dl when Hematocrit is >60 mg/dl,the test may not accurately detect significant hypoglycemia,and testing in the Laboratory should be considered if clinically indicated. Blood 10/20/2023 7:23 AM SPRAY MIXER 10/20/2023 7:23 AM SPRAY MIXER Jaqueline Valero MD LAB POCT ORDERABLES - APRIL CE Final Result Performing Organization Address [facility] de Phone Number [facility] [address] Department [place] [address] * XR Chest 1 View - Portable - in AM (10/20/2023 6:37 AM SPRAY MIXER) Anatomical Region Laterality Modality Body, Chest N/A Computed Radiogr aphy 10/20/2023 7:51 AM SPRAY MIXER Impressions 10/20/2023 7:51 AM SPRAY MIXER Comparison is made to prior chest radiograph(s) [...] Vicki Suh M.D. Narrative 10/20/2023 7:51 AM SPRAY MIXER EXAMINATION: XR CHEST 1 VIEW Procedure Note [...] signed by: Vicki Suh M.D. Byron Olvera COORDINATOR OF HEALTH SERVICES IMG XR PROCEDURES Final Result * POCT glucose (10/20/2023 6:12 AM SPRAY MIXER) Glucose, POC 119 70 - 140 mg/dL [facility] Comment: For Glucose values <35 mg/dl when Hematocrit is >60 mg/dl,the test may not accurately detect significant hypoglycemia,and testing in the Laboratory should be considered if clinically indicated. Blood 10/20/2023 6:12 AM SPRAY MIXER 10/20/2023 6:12 AM SPRAY MIXER Result [facility] Jaqueline Valero MD LAB POCT ORDERABLES - APRIL CE Final Result Performing Organization Address [facility] Co de Phone Number [facility] [address] Department [place] [address] * (ABNORMAL) POCT glucose (10/20/2023 3:57 AM SPRAY MIXER) Glucose, POC 153(H) 70 - 140 mg/dL [facility] Comment: For Glucose values <35 mg/dl when Hematocrit is >60 mg/dl,the test may not accurately detect significant hypoglycemia,and testing in the Laboratory should be considered if clinically indicated. Blood 10/20/2023 3:57 AM SPRAY MIXER 10/20/2023 3:57 AM SPRAY MIXER Jaqueline Valero MD LAB POCT ORDERABLES - APRIL CE Final Result Performing Organization Address [facility]/ZIP Co de Phone Number [facility] [address] [place] [address] * Oxyhemoglobin, central venous (10/20/2023 3:22 AM SPRAY MIXER) [facility] Oxyhemoglobin, CV 70.0 % [facility] Comment: Interpretive Data No reference range established. Current interpretive data was last revised 2019. Blood 10/20/2023 3:22 AM SPRAY MIXER 10/20/2023 3:26 AM SPRAY MIXER Gamal Fox COORDINATOR OF HEALTH SERVICES LAB BLOOD ORDERABLES Final Result Performing Organization Address [facility] Co de Phone Number [facility] [address] [place] [address] * (ABNORMAL) aPTT (10/20/2023 3:22 AM SPRAY MIXER) [facility] aPTT 114(H) 28 - 38 sec [facility] Comment: Interpretive Data Heparin therapeutic range: 66.0 - 100.0 seconds. Range based on correlation with therapeutic heparin activity range of 0.3 - 0.7 Units/mL. Current interpretive data was last revised on 2023. Blood 10/20/2023 3:22 AM SPRAY MIXER 10/20/2023 3:28 AM SPRAY MIXER Narrative [facility] - 10/20/2023 4:12 AM SPRAY MIXER Draw STAT PTT 6 hrs after initiation of heparin infusion, draw STAT PTT 6 hours after each dose change, and every 6 hours until 2 consecutive PTTs are within therapeutic range. Once two consecutive PTT's are therapeutic (66-100 seconds), then draw PTT every AM until heparin is discontinued. Byron Olvera COORDINATOR OF HEALTH SERVICES LAB BLOOD ORDERABLES Fi nal Result Performing Organization Address City/[facility]/ZIP Co de Phone Number [facility] [address] [facility] [place] [address] * (ABNORMAL) POCT glucose (10/20/2023 3:21 AM SPRAY MIXER) [facility] Glucose, POC 156(H) 70 - 140 mg/dL [facility] Comment: For Glucose values <35 mg/dl when Hematocrit is >60 mg/dl,the test may not accurately detect significant hypoglycemia,and testing in the Laboratory should be considered if clinically indicated. Blood 10/20/2023 3:21 AM SPRAY MIXER 10/20/2023 3:21 AM SPRAY MIXER Jaqueline Valero MD LAB POCT ORDERABLES - APRIL CE Final Result Performing Organization Address [facility] de Phone Number [facility] [address] [facility] [place] [address] * (ABNORMAL) POCT glucose (10/20/2023 2:10 AM SPRAY MIXER) Glucose, POC 164(H) 70 - 140 mg/dL [facility] Comment: For Glucose values <35 mg/dl when Hematocrit is >60 mg/dl,the test may not accurately detect significant hypoglycemia,and testing in the Laboratory should be considered if clinically indicated. Blood 10/20/2023 2:10 AM SPRAY MIXER 10/20/2023 2:10 AM SPRAY MIXER Result [facility] Jaqueline Valero MD LAB POCT ORDERABLES - APRIL CE Final Result Performing Organization Address [facility] de Phone Number [facility] [address] [facility] [place] [address] * POCT glucose (10/20/2023 12:57 AM SPRAY MIXER) Glucose, POC 119 70 - 140 mg/dL [facility] Comment: For Glucose values <35 mg/dl when Hematocrit is >60 mg/dl,the test may not accurately detect significant hypoglycemia,and testing in the Laboratory should be considered if clinically indicated. Blood 10/20/2023 12:5 7 AM SPRAY MIXER 10/20/2023 12:57 AM SPRAY MIXER Result [facility] Jaqueline Valero MD LAB POCT ORDERABLES - APRIL CE Final Result Performing Organization Address [facility] Co de Phone Number [facility] [address] Department [place] [address] * eGFR (10/20/2023 12:21 AM SPRAY MIXER) Pathologist [facility] eGFR 5 mL/min/1. 73 m2 [facility] Comment: Interpretive Data Reference Interval Normal [...] reviewed 2021. Blood 10/20/2023 12:2 1 AM SPRAY MIXER 10/20/2023 12:43 AM SPRAY MIXER Dawna Castellanos COORDINATOR OF HEALTH SERVICES LAB BLOOD ORDERABLES Ann Marie l Result Performing Organization Address [facility] Co de Phone Number [facility] [address] Department [place] [address] * Oxyhemoglobin, central venous (10/20/2023 12:21 AM SPRAY MIXER) [facility] Oxyhemoglobin, CV 51.0 % [facility] Comment: Interpretive Data No reference range established. Current interpretive data was last revised 2019. Blood 10/20/2023 12:2 1 AM SPRAY MIXER 10/20/2023 12:35 AM SPRAY MIXER Dawna Castellanos COORDINATOR OF HEALTH SERVICES LAB BLOOD ORDERABLES Ann Marie l Result Performing Organization Address [facility] Co de Phone Number [facility] [address] Department [place] [address] * (ABNORMAL) Protime-INR (10/20/2023 12:21 AM SPRAY MIXER) Pathologist [facility] PT 25.5(H) 10.3 - 13.7 sec [facility] INR 2.24(H) 0.90 - 1.20 [facility] Comment: Interpretive data Oral anticoagulant therapeutic ranges: Venous thromboembolism prophylaxis or treatment: 2.0-3.0 CARDIOLOGY Standard range: 2.0-3.0 High-intensity range: 2.5-3.5 Refer to indication-specific guidelines for appropriate target ranges for prosthetic heart valve replacement. Current interpretive data was last revised on 2019. Blood 10/20/2023 12:2 1 AM SPRAY MIXER 10/20/2023 12:43 AM SPRAY MIXER Byron Olvera COORDINATOR OF HEALTH SERVICES LAB BLOOD ORDERABLES Fi nal Result Performing Organization Address [facility] Co de Phone Number [facility] [address] Department [place] [address] * Magnesium (10/20/2023 12:21 AM SPRAY MIXER) Pathologist [facility] Magnesium 2.4 1.4 - 2.5 mg/dL [facility] Blood 10/20/2023 12:2 1 AM SPRAY MIXER 10/20/2023 12:43 AM SPRAY MIXER Byron Olvera COORDINATOR OF HEALTH SERVICES LAB BLOOD ORDERABLES Fi nal Result Performing Organization Address City/[facility]/ZIP Co de Phone Number [facility] [address] Department [place] [address] * (ABNORMAL) Calcium, ionized (10/20/2023 12:21 AM SPRAY MIXER) Pathologist [facility] Calcium, Ionized 4.38(L) 4.50 - 5.10 mg/dL [facility] Blood 10/20/2023 12:2 1 AM SPRAY MIXER 10/20/2023 12:35 AM SPRAY MIXER Byron Olvera COORDINATOR OF HEALTH SERVICES LAB BLOOD ORDERABLES Fi nal Result Performing Organization Address [facility] Co de Phone Number [facility] [address] [place] [address] * (ABNORMAL) Renal function panel (10/20/2023 12:21 AM SPRAY MIXER) [facility] Sodium 137 135 - 145 mmol/L [facility] Potassium, pl 4.4 3.3 - 4.9 mmol/L [facility] Chloride 96(L) 97 - 110 mmol/L [facility] CO2 21(L) 22 - 32 mmol/L [facility] Anion gap 20(H) 2 - 15 mmol/L [facility] BUN 77(H) 6 - 25 mg/dL [facility] Creatinine 11.28(H) 0.80 - 1.30 mg/dL [facility] Glucose 105 70 - 199 mg/dL [facility] Comment: Interpretive Data Fasting glucose >/= [...] 2022. Calcium 8.9 8.5 - 10.3 mg/dL [facility] Phosphorus, pl 8.9(H) 2.3 - 4.5 mg/dL [facility] Albumin 2.8(L) 3.5 - 5.0 g/dL [facility] Blood 10/20/2023 12:2 1 AM SPRAY MIXER 10/20/2023 12:43 AM SPRAY MIXER Byron Olvera COORDINATOR OF HEALTH SERVICES LAB BLOOD ORDERABLES Fi nal Result Performing Organization Address [facility]/ZIP Co de Phone Number [facility] [address] [place] [employer] [place] [address] * (ABNORMAL) CBC without differential (10/20/2023 12:21 AM SPRAY MIXER) WBC 8.8 3.8 - 9.9 K/cumm [facility] Hgb 8.3(L) 13.0 - 17.5 g/dL [facility] Hct 26.2(L) 38.9 - 50.3 % [facility] Plt 149(L) 150 - 400 K/cumm [facility] MPV 11.1 9.1 - 12.3 fL [facility] RBC 2.76(L) 4.30 - 5.80 M/cumm [facility] MCV 94.9 81.3 - 96.4 fL [facility] MCH 30.1 27.1 - 33.3 pg [facility] MCHC 31.7(L) 32.3 - 35.7 g/dL [facility] RDW CV 16.5(H) 11.1 - 14.9 % [facility] RDW SD 56.3(H) 35.7 - 48.1 fL [facility] NRBC abs 0.00 0.00 - 0.01 K/cumm [facility] Blood 10/20/2023 12:2 1 AM SPRAY MIXER 10/20/2023 12:43 AM SPRAY MIXER Byron Olvera NP LAB BLOOD ORDERABLES Fi nal Result Performing Organization Address City/[facility]/ZIP Co de Phone Number [facility] [address] [place] [address] * POCT glucose (10/20/2023 12:20 AM SPRAY MIXER) Glucose, POC 111 70 - 140 mg/dL [facility] Comment: For Glucose values <35 mg/dl when Hematocrit is >60 mg/dl,the test may not accurately detect significant hypoglycemia,and testing in the Laboratory should be considered if clinically indicated. Blood 10/20/2023 12:2 0 AM SPRAY MIXER 10/20/2023 12:20 AM SPRAY MIXER Jaqueline Valero MD LAB POCT ORDERABLES - APRIL CE Final Result Performing Organization Address [facility] Co de Phone Number [facility] [address] [facility] [place] [address] * POCT glucose (10/19/2023 11:03 PM SPRAY MIXER) Glucose, POC 111 70 - 140 mg/dL [facility] Comment: For Glucose values <35 mg/dl when Hematocrit is >60 mg/dl,the test may not accurately detect significant hypoglycemia,and testing in the Laboratory should be considered if clinically indicated. Blood 10/19/2023 11:0 3 PM SPRAY MIXER 10/19/2023 11:03 PM SPRAY MIXER Jaqueline Valero MD LAB POCT ORDERABLES - APRIL CE Final Result Performing Organization Address [facility] Co de Phone Number [facility] [address] [facility] [place] [address] * POCT glucose (10/19/2023 10:01 PM SPRAY MIXER) Glucose, POC 120 70 - 140 mg/dL [facility] Comment: For Glucose values <35 mg/dl when Hematocrit is >60 mg/dl,the test may not accurately detect significant hypoglycemia,and testing in the Laboratory should be considered if clinically indicated. Blood 10/19/2023 10:0 1 PM SPRAY MIXER 10/19/2023 10:01 PM SPRAY MIXER Jaqueline Valero MD LAB POCT ORDERABLES - APRIL CE Final Result Performing Organization Address [facility] Co de Phone Number [facility] [address] [place] [address] * (ABNORMAL) aPTT (10/19/2023 9:47 PM SPRAY MIXER) aPTT 94(H) 28 - 38 sec [facility] Comment: Interpretive Data Heparin therapeutic range: 66.0 - 100.0 seconds. Range based on correlation with therapeutic heparin activity range of 0.3 - 0.7 Units/mL. Current interpretive data was last revised on 2023. Blood 10/19/2023 9:47 PM SPRAY MIXER 10/19/2023 9:54 PM SPRAY MIXER Narrative [facility] - 10/19/2023 10:17 PM SPRAY MIXER Draw STAT PTT 6 hrs after initiation of heparin infusion, draw STAT PTT 6 hours after each dose change, and every 6 hours until 2 consecutive PTTs are within therapeutic range. Once two consecutive PTT's are therapeutic (66-100 seconds), then draw PTT every AM until heparin is discontinued. Byron Olvera NP LAB BLOOD ORDERABLES Fi nal Result Performing Organization Address [facility] de Phone Number [facility] [address] [place] [address] * (ABNORMAL) POCT glucose (10/19/2023 9:15 PM SPRAY MIXER) Glucose, POC 143(H) 70 - 140 mg/dL [facility] Comment: For Glucose values <35 mg/dl when Hematocrit is >60 mg/dl,the test may not accurately detect significant hypoglycemia,and testing in the Laboratory should be considered if clinically indicated. Blood 10/19/2023 9:15 PM SPRAY MIXER 10/19/2023 9:15 PM SPRAY MIXER Jaqueline Valero MD LAB POCT ORDERABLES - APRIL CE Final Result Performing Organization Address [facility] de Phone Number [facility] [address] [facility] [place] [address] * (ABNORMAL) POCT glucose (10/19/2023 8:12 PM SPRAY MIXER) Glucose, POC 156(H) 70 - 140 mg/dL [facility] Comment: For Glucose values <35 mg/dl when Hematocrit is >60 mg/dl,the test may not accurately detect significant hypoglycemia,and testing in the Laboratory should be considered if clinically indicated. Blood 10/19/2023 8:12 PM SPRAY MIXER 10/19/2023 8:12 PM SPRAY MIXER Jaquelnie Valero MD LAB POCT ORDERABLES - APRIL CE Final Result Performing Organization Address [facility] de Phone Number [facility] [address] [facility] [place] [address] * POCT glucose (10/19/2023 6:13 PM SPRAY MIXER) Glucose, POC 94 70 - 140 mg/dL [facility] Comment: For Glucose values <35 mg/dl when Hematocrit is >60 mg/dl,the test may not accurately detect significant hypoglycemia,and testing in the Laboratory should be considered if clinically indicated. Blood 10/19/2023 6:13 PM SPRAY MIXER 10/19/2023 6:13 PM SPRAY MIXER Jaqueline Valero MD LAB POCT ORDERABLES - APRIL CE Final Result Performing Organization Address [facility] de Phone Number [facility] [address] [facility] [place] [address] * POCT glucose (10/19/2023 5:24 PM SPRAY MIXER) Glucose, POC 90 70 - 140 mg/dL [facility] Comment: For Glucose values <35 mg/dl when Hematocrit is >60 mg/dl,the test may not accurately detect significant hypoglycemia,and testing in the Laboratory should be considered if clinically indicated. Blood 10/19/2023 5:24 PM SPRAY MIXER 10/19/2023 5:24 PM SPRAY MIXER us Jaqueline Valero MD LAB POCT ORDERABLES - APRIL CE Final Result [facility] [address] Department [place] [address] * XR Chest 1 View (10/19/2023 4:29 PM SPRAY MIXER) Anatomical Region Laterality Modality Body, Chest N/A Computed Radiogr aphy 10/19/2023 4:32 PM SPRAY MIXER Impressions 10/19/2023 4:32 PM SPRAY MIXER Comparison made to radiograph 10/19/2023. Right internal [...] Trace Barrow M.D. Narrative 10/19/2023 4:32 PM SPRAY MIXER EXAMINATION: XR CHEST 1 VIEW HISTORY: ??Chest [...] by: Trace Barrow M.D. us Dawna Castellanos COORDINATOR OF HEALTH SERVICES IMG XR PROCEDURES Final R esult * POCT glucose (10/19/2023 4:25 PM SPRAY MIXER) Glucose, POC 113 70 - 140 mg/dL [facility] Comment: For Glucose values <35 mg/dl when Hematocrit is >60 mg/dl,the test may not accurately detect significant hypoglycemia,and testing in the Laboratory should be considered if clinically indicated. Blood 10/19/2023 4:25 PM SPRAY MIXER 10/19/2023 4:25 PM SPRAY MIXER Jaqueline Valero MD LAB POCT ORDERABLES - APRIL CE Final Result Performing Organization Address [facility] Co de Phone Number [facility] [address] Department [place] [address] * ECG 12 lead (10/19/2023 3:21 PM SPRAY MIXER) 10/19/2023 3:21 PM SPRAY MIXER Narrative [facility] - 10/20/2023 9:37 AM SPRAY MIXER Vent Rate: 78 bpm RR Interval: 769 msec IA Interval: 264 msec QRS Duration: 145 msec QT Interval: 426 msec QTC Interval: 459 msec P-R-T [place]: 47 - -19 - 115 degrees IMPRESSION: PROBABLE SINUS RHYTHM WITH FIRST DEGREE AV BLOCK FREQUENT SUPRAVENTRICULAR PREMATURE COMPLEXES IN A BIGEMINAL PATTERN INTRAVENTRICULAR CONDUCTION DELAY NONSPECIFIC T-WAVE CHANGES ABNORMAL ECG Electronically Signed By: Abelardo Randle MD Dawna Castellanos COORDINATOR OF HEALTH SERVICES ECG ORDERABLES Final Res ult Performing Organization Address [facility] Co de Phone Number [facility] [employer] [facility] * XR Kub (10/19/2023 2:49 PM SPRAY MIXER) Anatomical Region Laterality Modality Body, Abdomen N/A Computed Radiogr aphy 10/19/2023 3:00 PM SPRAY MIXER Impressions 10/19/2023 3:00 PM SPRAY MIXER FINDINGS/IMPRESSION: Postsurgical changes in the chest. ??Epicardial pacer wires overlie the abdomen and chest. ??Chest tube/mediastinal drains overlie the abdomen. ??Nguyen catheter superimposes the expected location of the urinary bladder. There is no dilatation of small or large bowel seen, although exam is limited secondary to body habitus. Electronically signed by: Nona Carrillo DO Narrative 10/19/2023 3:00 PM SPRAY MIXER EXAM: ??XR KUB, 10/19/2023 1:50 PM HISTORY: [...] Result * (ABNORMAL) aPTT (10/19/2023 2:44 PM SPRAY MIXER) aPTT 59(H) 28 - 38 sec [facility] Comment: Interpretive Data Heparin therapeutic range: 66.0 - 100.0 seconds. Range based on correlation with therapeutic heparin activity range of 0.3 - 0.7 Units/mL. Current interpretive data was last revised on 2023. Blood 10/19/2023 2:44 PM SPRAY MIXER 10/19/2023 2:48 PM SPRAY MIXER Narrative [facility] - 10/19/2023 3:02 PM SPRAY MIXER Draw STAT PTT 6 hrs after initiation of heparin infusion, draw STAT PTT 6 hours after each dose change, and every 6 hours until 2 consecutive PTTs are within therapeutic range. Once two consecutive PTT's are therapeutic (66-100 seconds), then draw PTT every AM until heparin is discontinued. us Byron Olvera NP LAB BLOOD ORDERABLES Fi nal Result [facility] [address] [place] [address] [phone] * (ABNORMAL) Hepatic function panel (10/19/2023 2:44 PM SPRAY MIXER) [facility] Bilirubin, total 0.3 0.1 - 1.2 mg/dL [facility] Bilirubin, direct <0.2 0.1 - 0.3 mg/dL [facility] Protein, pl 5.2(L) 6.5 - 8.5 g/dL [facility] Albumin 3.0(L) 3.5 - 5.0 g/dL [facility] Alk phos 104 40 - 130 Units/L [facility] [facility] ALT 9 7 - 55 Units/L [facility] AST 39 10 - 50 Units/L [facility] Blood 10/19/2023 2:44 PM SPRAY MIXER 10/19/2023 2:48 PM SPRAY MIXER Kirsten Burns MD LAB BLOOD ORDERABLES Fin al Result Performing Organization Address [facility]/ZIP Co de Phone Number [facility] [address] [facility] [place] [address] * (ABNORMAL) Lipase (10/19/2023 2:44 PM SPRAY MIXER) [facility] Lipase 7(L) 10 - 99 Units/L [facility] Blood 10/19/2023 2:44 PM SPRAY MIXER 10/19/2023 2:48 PM SPRAY MIXER Kirsten Burns MD LAB BLOOD ORDERABLES Fin al Result Performing Organization Address City/[facility]/ZIP Co de Phone Number [facility] [address] [facility] [place] [address] * (ABNORMAL) Amylase (10/19/2023 2:44 PM SPRAY MIXER) [facility] Amylase <3(L) 30 - 99 Units/L [facility] Blood 10/19/2023 2:44 PM SPRAY MIXER 10/19/2023 2:48 PM SPRAY MIXER Kirsten Burns MD LAB BLOOD ORDERABLES Fin al Result Performing Organization Address [facility] Co de Phone Number [facility] [address] [facility] [address] [place], [place] [phone] * (ABNORMAL) POCT glucose (10/19/2023 2:40 PM SPRAY MIXER) Glucose, POC 195(H) 70 - 140 mg/dL [facility] Comment: For Glucose values <35 mg/dl when Hematocrit is >60 mg/dl,the test may not accurately detect significant hypoglycemia,and testing in the Laboratory should be considered if clinically indicated. Blood 10/19/2023 2:40 PM SPRAY MIXER 10/19/2023 2:40 PM SPRAY MIXER Jaqueline Valero MD LAB POCT ORDERABLES - APRIL CE Final Result Performing Organization Address [facility] de Phone Number [facility] [address] [facility] [place] [address] * POCT glucose (10/19/2023 12:25 PM SPRAY MIXER) Glucose, POC 114 70 - 140 mg/dL [facility] Comment: For Glucose values <35 mg/dl when Hematocrit is >60 mg/dl,the test may not accurately detect significant hypoglycemia,and testing in the Laboratory should be considered if clinically indicated. Blood 10/19/2023 12:2 5 PM SPRAY MIXER 10/19/2023 12:25 PM SPRAY MIXER Jaqueline Valero MD LAB POCT ORDERABLES - APRIL CE Final Result Performing Organization Address [facility] Co de Phone Number [facility] [address] [facility] [address] [place], [place] [phone] * POCT glucose (10/19/2023 11:12 AM SPRAY MIXER) Glucose, POC 116 70 - 140 mg/dL [facility] Comment: For Glucose values <35 mg/dl when Hematocrit is >60 mg/dl,the test may not accurately detect significant hypoglycemia,and testing in the Laboratory should be considered if clinically indicated. Blood 10/19/2023 11:1 2 AM SPRAY MIXER 10/19/2023 11:12 AM SPRAY MIXER Jaqueline Valero MD LAB POCT ORDERABLES - APRIL CE Final Result Performing Organization Address [facility] de Phone Number [facility] [address] [place] [address] * (ABNORMAL) POCT glucose (10/19/2023 10:54 AM SPRAY MIXER) Glucose, POC 57(L) 70 - 140 mg/dL [facility] Comment: For Glucose values <35 mg/dl when Hematocrit is >60 mg/dl,the test may not accurately detect significant hypoglycemia,and testing in the Laboratory should be considered if clinically indicated. Blood 10/19/2023 10:5 4 AM SPRAY MIXER 10/19/2023 10:54 AM SPRAY MIXER Jaqueline Valero MD LAB POCT ORDERABLES - APRIL CE Final Result Performing Organization Address [facility] de Phone Number [facility] [address] [place] [address] * POCT glucose (10/19/2023 9:04 AM SPRAY MIXER) Glucose, POC 82 70 - 140 mg/dL [facility] Comment: For Glucose values <35 mg/dl when Hematocrit is >60 mg/dl,the test may not accurately detect significant hypoglycemia,and testing in the Laboratory should be considered if clinically indicated. Blood 10/19/2023 9:04 AM SPRAY MIXER 10/19/2023 9:04 AM SPRAY MIXER Jaqueline Valero MD LAB POCT ORDERABLES - APRIL CE Final Result Performing Organization Address [facility] de Phone Number [facility] [address] [place] [address] * (ABNORMAL) aPTT (10/19/2023 8:58 AM SPRAY MIXER) aPTT 46(H) 28 - 38 sec [facility] Comment: Interpretive Data Heparin therapeutic range: 66.0 - 100.0 seconds. Range based on correlation with therapeutic heparin activity range of 0.3 - 0.7 Units/mL. Current interpretive data was last revised on 2023. Blood 10/19/2023 8:58 AM SPRAY MIXER 10/19/2023 9:28 AM SPRAY MIXER Narrative [facility] - 10/19/2023 9:51 AM SPRAY MIXER Draw STAT PTT 6 hrs after initiation of heparin infusion, draw STAT PTT 6 hours after each dose change, and every 6 hours until 2 consecutive PTTs are within therapeutic range. Once two consecutive PTT's are therapeutic (66-100 seconds), then draw PTT every AM until heparin is discontinued. Byron Olvera COORDINATOR OF HEALTH SERVICES LAB BLOOD ORDERABLES Fi nal Result Performing Organization Address [facility]/ZIP Co de Phone Number [facility] [address] [place] [address] * Oxyhemoglobin, central venous (10/19/2023 8:58 AM SPRAY MIXER) Pathologist [facility] Oxyhemoglobin, CV 70.1 % [facility] Comment: Interpretive Data No reference range established. Current interpretive data was last revised 2019. Blood 10/19/2023 8:58 AM SPRAY MIXER 10/19/2023 9:16 AM SPRAY MIXER [facility]ative [facility] - 10/19/2023 9:17 AM SPRAY MIXER While on [facility] Dawna Castellanos COORDINATOR OF HEALTH SERVICES LAB BLOOD ORDERABLES Ann Marie l Result [facility] [address] [place] [place] [address] * (ABNORMAL) POCT glucose (10/19/2023 7:19 AM SPRAY MIXER) Glucose, POC 150(H) 70 - 140 mg/dL [facility] Comment: For Glucose values <35 mg/dl when Hematocrit is >60 mg/dl,the test may not accurately detect significant hypoglycemia,and testing in the Laboratory should be considered if clinically indicated. Blood 10/19/2023 7:19 AM SPRAY MIXER 10/19/2023 7:19 AM SPRAY MIXER Jaqueline Valero MD LAB POCT ORDERABLES - APRIL CE Final Result Performing Organization Address [facility] Co de Phone Number [facility] [address] [place] [place], [place] [phone] * Lactate (10/19/2023 7:09 AM SPRAY MIXER) [facility] Lactate 1.4 0.7 - 2.0 mmol/L [facility] Blood 10/19/2023 7:09 AM SPRAY MIXER 10/19/2023 7:22 AM SPRAY MIXER Dawna Castellanos COORDINATOR OF HEALTH SERVICES LAB BLOOD ORDERABLES Ann Marie l Result Performing Organization Address [facility] Co de Phone Number [facility] [address] [place] [address] * Oxyhemoglobin, central venous (10/19/2023 7:09 AM SPRAY MIXER) [facility] Oxyhemoglobin, CV 96.5 % [facility] Comment: Interpretive Data No reference range established. Current interpretive data was last revised 2019. Blood 10/19/2023 7:09 AM SPRAY MIXER 10/19/2023 7:22 AM SPRAY MIXER Narrative [facility] - 10/19/2023 7:24 AM SPRAY MIXER While on [facility] Dawna Castellanos COORDINATOR OF HEALTH SERVICES LAB BLOOD ORDERABLES Ann Marie l Result Performing Organization Address [facility] Co de Phone Number [facility] [address] [place] [address] * Critical Care (10/19/2023 6:57 AM SPRAY MIXER) Narrative Kirsten Burns MD - 10/19/2023 6:57 AM SPRAY MIXER Dawna Castellanos NP ? 10/19/2023 ??2:12 PM Critical Care Performed by: Dawna Castellanos NP Authorized by: Dawna Castellanos NP ?? CRITICAL CARE: ??Team: ??[facility] ??Shift: ??AM ??Level of Billing: ??Critical [...] plan with the ICU team and other medical/technology applications consultant staff, making frequent assessments and decisions [...] * (ABNORMAL) POCT glucose (10/19/2023 6:57 AM SPRAY MIXER) [employer] Signature Glucose, POC 147(H) 70 - 140 mg/dL [facility] Comment: For Glucose values <35 mg/dl when Hematocrit is >60 mg/dl,the test may not accurately detect significant hypoglycemia,and testing in the Laboratory should be considered if clinically indicated. Blood 10/19/2023 6:57 AM SPRAY MIXER 10/19/2023 6:57 AM SPRAY MIXER Jaqueline Valero MD LAB POCT ORDERABLES - APRIL CE Final Result [facility] [address] Department [place] [address] * XR Chest 1 View - Portable - in AM (10/19/2023 6:27 AM SPRAY MIXER) Anatomical Region Laterality Modality Body, Chest N/A Computed Radiogr aphy 10/19/2023 7:36 AM SPRAY MIXER Impressions 10/19/2023 7:36 AM SPRAY MIXER Comparison is made to 10/10/2023. ??Right internal jugular catheter tip overlies the superior vena cava, unchanged in position. ??The [place]-Daniel catheter has been removed. ??Sternotomy wires and [...] John Bruno M.D. Narrative 10/19/2023 7:36 AM SPRAY MIXER EXAMINATION: Chest 1 view frontal HISTORY: Shortness of breath Procedure Note John Bruno MD - 10/19/2023 EXAMINATION: Chest 1 view frontal HISTORY: Shortness of breath IMPRESSION: Comparison is made to 10/10/2023. Right internal jugular catheter tip overlies the superior vena cava, unchanged in position. The [place]-Daniel catheter has been removed. Sternotomy wires and [...] * (ABNORMAL) POCT glucose (10/19/2023 6:06 AM SPRAY MIXER) Glucose, POC 163(H) 70 - 140 mg/dL [facility] Comment: For Glucose values <35 mg/dl when Hematocrit is >60 mg/dl,the test may not accurately detect significant hypoglycemia,and testing in the Laboratory should be considered if clinically indicated. Blood 10/19/2023 6:06 AM SPRAY MIXER 10/19/2023 6:06 AM SPRAY MIXER Jaqueline Valero MD LAB POCT ORDERABLES - APRIL CE Final Result Performing Organization Address [facility] Co de Phone Number [facility] [address] [facility] [address] [place], [place] [phone] * (ABNORMAL) POCT glucose (10/19/2023 5:10 AM SPRAY MIXER) Glucose, POC 191(H) 70 - 140 mg/dL [facility] Comment: For Glucose values <35 mg/dl when Hematocrit is >60 mg/dl,the test may not accurately detect significant hypoglycemia,and testing in the Laboratory should be considered if clinically indicated. Blood 10/19/2023 5:10 AM SPRAY MIXER 10/19/2023 5:10 AM SPRAY MIXER Jaqueline Valero MD LAB POCT ORDERABLES - APRIL CE Final Result Performing Organization Address [facility] de Phone Number [facility] [address] [facility] [place] [address] * (ABNORMAL) aPTT (10/19/2023 4:14 AM SPRAY MIXER) aPTT 50(H) 28 - 38 sec [facility] Comment: Interpretive Data Heparin therapeutic range: 66.0 - 100.0 seconds. Range based on correlation with therapeutic heparin activity range of 0.3 - 0.7 Units/mL. Current interpretive data was last revised on 2023. Blood 10/19/2023 4:14 AM SPRAY MIXER 10/19/2023 4:27 AM SPRAY MIXER Narrative [facility] - 10/19/2023 5:01 AM SPRAY MIXER Draw STAT PTT 6 hrs after initiation of heparin infusion, draw STAT PTT 6 hours after each dose change, and every 6 hours until 2 consecutive PTTs are within therapeutic range. Once two consecutive PTT's are therapeutic (46-70 seconds), then draw PTT every AM until heparin is discontinued. Jaqueline Valero MD LAB BLOOD ORDERABLES Final Result Performing Organization Address [facility] de Phone Number [facility] [address] [facility] [place] [address] * (ABNORMAL) POCT glucose (10/19/2023 4:03 AM SPRAY MIXER) Glucose, POC 175(H) 70 - 140 mg/dL [facility] Comment: For Glucose values <35 mg/dl when Hematocrit is >60 mg/dl,the test may not accurately detect significant hypoglycemia,and testing in the Laboratory should be considered if clinically indicated. Blood 10/19/2023 4:03 AM SPRAY MIXER 10/19/2023 4:03 AM SPRAY MIXER Jaqueline Valero MD LAB POCT ORDERABLES - APRIL CE Final Result Performing Organization Address [facility] de Phone Number [facility] [address] [facility] [place] [address] * (ABNORMAL) POCT glucose (10/19/2023 2:56 AM SPRAY MIXER) Glucose, POC 177(H) 70 - 140 mg/dL [facility] Comment: For Glucose values <35 mg/dl when Hematocrit is >60 mg/dl,the test may not accurately detect significant hypoglycemia,and testing in the Laboratory should be considered if clinically indicated. Blood 10/19/2023 2:56 AM SPRAY MIXER 10/19/2023 2:56 AM SPRAY MIXER Result [facility] Jaqueline Valero MD LAB POCT ORDERABLES - APRIL CE Final Result Performing Organization Address [facility]/ZIP Co de Phone Number [facility] [address] Department [place] [address] * eGFR (10/19/2023 2:11 AM SPRAY MIXER) eGFR 5 mL/min/1. 73 m2 [facility] Comment: Interpretive Data Reference Interval Normal [...] last reviewed 2021. Blood 10/19/2023 2:11 AM SPRAY MIXER 10/19/2023 2:23 AM SPRAY MIXER Dawna Castellanos COORDINATOR OF HEALTH SERVICES LAB BLOOD ORDERABLES Ann Marie l Result Performing Organization Address [facility]/ZIP Co de Phone Number [facility] [address] Department [place] [address] * (ABNORMAL) Blood gas, arterial (10/19/2023 2:11 AM SPRAY MIXER) Pathologist [facility] pH, Art 7.28(L) 7.35 - 7.45 [facility] PCO2, Arterial 44 35 - 45 mmHg [facility] PO2, Arterial 130(H) 83 - 108 mmHg [facility] HCO3 Art (Calculated) 21 20 - 30 mmol/L [facility] BE, art -6 mmol/L [facility] Comment: Interpretive Data No Reference Range Established Current Interpretive Data was last revised on 2017 O2 Sat Art (Calculated) 99(H) 94 - 98 % [facility] Blood 10/19/2023 2:11 AM SPRAY MIXER 10/19/2023 2:15 AM SPRAY MIXER Gamal Fox COORDINATOR OF HEALTH SERVICES LAB BLOOD ORDERABLES Final Result Performing Organization Address [facility] Co de Phone Number [facility] [address] Department [place], [place] [phone] * Oxyhemoglobin, central venous (10/19/2023 2:11 AM SPRAY MIXER) [facility] Oxyhemoglobin, CV 79.0 % [facility] Comment: Interpretive Data No reference range established. Current interpretive data was last revised 2019. Blood 10/19/2023 2:11 AM SPRAY MIXER 10/19/2023 2:15 AM SPRAY MIXER Dwana Castellanos COORDINATOR OF HEALTH SERVICES LAB BLOOD ORDERABLES Ann Marie l Result Performing Organization Address City/[facility]/ZIP Co de Phone Number [facility] [address] [place] [address] * Protime-INR (10/19/2023 2:11 AM SPRAY MIXER) [facility] PT 12.8 10.3 - 13.7 sec [facility] INR 1.12 0.90 - 1.20 [facility] Comment: Interpretive data Oral anticoagulant therapeutic ranges: Venous thromboembolism prophylaxis or treatment: 2.0-3.0 CARDIOLOGY Standard range: 2.0-3.0 High-intensity range: 2.5-3.5 Refer to indication-specific guidelines for appropriate target ranges for prosthetic heart valve replacement. Current interpretive data was last revised on 2019. Blood 10/19/2023 2:11 AM SPRAY MIXER 10/19/2023 2:23 AM SPRAY MIXER Byron Olvera NP LAB BLOOD ORDERABLES Fi nal Result Performing Organization Address City/[facility] Co de Phone Number [facility] [address] [facility] [place] [place], [place] [id number] * Magnesium (10/19/2023 2:11 AM SPRAY MIXER) Magnesium 2.5 1.4 - 2.5 mg/dL [facility] Blood 10/19/2023 2:11 AM SPRAY MIXER 10/19/2023 2:23 AM SPRAY MIXER Byron Olvera NP LAB BLOOD ORDERABLES Fi nal Result Performing Organization Address [facility] Co de Phone Number [facility] [address] [facility] [place] [address] * Calcium, ionized (10/19/2023 2:11 AM SPRAY MIXER) Pathologist [facility] Calcium, Ionized 4.69 4.50 - 5.10 mg/dL [facility] Blood 10/19/2023 2:11 AM SPRAY MIXER 10/19/2023 2:15 AM SPRAY MIXER Byron Olvera NP LAB BLOOD ORDERABLES Fi nal Result Performing Organization Address [facility] Co de Phone Number [facility] [address] [facility] [address] [place], [place] [phone] * (ABNORMAL) Renal function panel (10/19/2023 2:11 AM SPRAY MIXER) Sodium 138 135 - 145 mmol/L [facility] Potassium, pl 4.4 3.3 - 4.9 mmol/L [facility] Chloride 97 97 - 110 mmol/L [facility] CO2 21(L) 22 - 32 mmol/L [facility] Anion gap 20(H) 2 - 15 mmol/L [facility] BUN 74(H) 6 - 25 mg/dL [facility] Creatinine 10.85(H) 0.80 - 1.30 mg/dL [facility] Glucose 188 70 - 199 mg/dL [facility] Comment: Interpretive Data Fasting glucose >/= [...] 2022. Calcium 9.0 8.5 - 10.3 mg/dL [facility] Phosphorus, pl 8.3(H) 2.3 - 4.5 mg/dL [facility] Albumin 3.1(L) 3.5 - 5.0 g/dL [facility] Blood 10/19/2023 2:11 AM SPRAY MIXER 10/19/2023 2:23 AM SPRAY MIXER us Byron Olvera NP LAB BLOOD ORDERABLES Fi nal Result [facility] [address] Department [place] [address] * (ABNORMAL) CBC without differential (10/19/2023 2:11 AM SPRAY MIXER) WBC 8.9 3.8 - 9.9 K/cumm [facility] Hgb 8.7(L) 13.0 - 17.5 g/dL [facility] Hct 27.4(L) 38.9 - 50.3 % [facility] Plt 157 150 - 400 K/cumm [facility] MPV 11.0 9.1 - 12.3 fL [facility] RBC 2.91(L) 4.30 - 5.80 M/cumm [facility] MCV 94.2 81.3 - 96.4 fL [facility] MCH 29.9 27.1 - 33.3 pg [facility] MCHC 31.8(L) 32.3 - 35.7 g/dL [facility] RDW CV 16.4(H) 11.1 - 14.9 % [facility] RDW SD 55.0(H) 35.7 - 48.1 fL [facility] NRBC abs 0.00 0.00 - 0.01 K/cumm [facility] Blood 10/19/2023 2:11 AM SPRAY MIXER 10/19/2023 2:23 AM SPRAY MIXER Byron Olvera COORDINATOR OF HEALTH SERVICES LAB BLOOD ORDERABLES Fi nal Result Performing Organization Address [facility]/ZIP Co de Phone Number [facility] [address] [place] [address] * (ABNORMAL) POCT glucose (10/19/2023 2:07 AM SPRAY MIXER) Glucose, POC 171(H) 70 - 140 mg/dL [facility] Comment: For Glucose values <35 mg/dl when Hematocrit is >60 mg/dl,the test may not accurately detect significant hypoglycemia,and testing in the Laboratory should be considered if clinically indicated. Blood 10/19/2023 2:07 AM SPRAY MIXER 10/19/2023 2:07 AM SPRAY MIXER Jaqueline Valero MD LAB POCT ORDERABLES - APRIL CE Final Result Performing Organization Address City/[facility]/ZIP Co de Phone Number [facility] [address] [facility] [place] [address] * (ABNORMAL) POCT glucose (10/19/2023 12:01 AM SPRAY MIXER) Glucose, POC 144(H) 70 - 140 mg/dL [facility] Comment: For Glucose values <35 mg/dl when Hematocrit is >60 mg/dl,the test may not accurately detect significant hypoglycemia,and testing in the Laboratory should be considered if clinically indicated. Blood 10/19/2023 12:0 1 AM SPRAY MIXER 10/19/2023 12:01 AM SPRAY MIXER Jaqueline Valero MD LAB POCT ORDERABLES - APRIL CE Final Result Performing Organization Address [facility] Co de Phone Number [facility] [address] [place] [address] * POCT glucose (10/18/2023 11:03 PM SPRAY MIXER) Glucose, POC 106 70 - 140 mg/dL [facility] Comment: For Glucose values <35 mg/dl when Hematocrit is >60 mg/dl,the test may not accurately detect significant hypoglycemia,and testing in the Laboratory should be considered if clinically indicated. Blood 10/18/2023 11:0 3 PM SPRAY MIXER 10/18/2023 11:03 PM SPRAY MIXER Result [facility] Jaqueline Valero MD LAB POCT ORDERABLES - APRIL CE Final Result Performing Organization Address [facility] Co de Phone Number [facility] [address] [place] [address] * POCT glucose (10/18/2023 10:11 PM SPRAY MIXER) Glucose, POC 114 70 - 140 mg/dL [facility] Comment: For Glucose values <35 mg/dl when Hematocrit is >60 mg/dl,the test may not accurately detect significant hypoglycemia,and testing in the Laboratory should be considered if clinically indicated. Blood 10/18/2023 10:1 1 PM SPRAY MIXER 10/18/2023 10:11 PM SPRAY MIXER Jaqueline Valero MD LAB POCT ORDERABLES - APRIL CE Final Result Performing Organization Address [facility] Co de Phone Number [facility] [address] [place] [address] * (ABNORMAL) aPTT (10/18/2023 9:21 PM SPRAY MIXER) aPTT 43(H) 28 - 38 sec [facility] Comment: Interpretive Data Heparin therapeutic range: 66.0 - 100.0 seconds. Range based on correlation with therapeutic heparin activity range of 0.3 - 0.7 Units/mL. Current interpretive data was last revised on 2023. Blood 10/18/2023 9:21 PM SPRAY MIXER 10/18/2023 9:25 PM SPRAY MIXER Narrative [facility] - 10/18/2023 9:42 PM SPRAY MIXER Draw STAT PTT 6 hrs after initiation [...] [facility]/ZIP Co de Phone Number [facility] [address] Privacy [employer] [place], [place] [id number] * POCT glucose (10/18/2023 9:19 PM SPRAY MIXER) [facility] Glucose, POC 120 70 - 140 mg/dL [facility] Comment: For Glucose values <35 mg/dl when Hematocrit is >60 mg/dl,the test may not accurately detect significant hypoglycemia,and testing in the Laboratory should be considered if clinically indicated. Blood 10/18/2023 9:19 PM SPRAY MIXER 10/18/2023 9:19 PM SPRAY MIXER Jaqueline Valero MD LAB POCT ORDERABLES - APRIL CE Final Result [facility] [address] [employer] [place], [place] [id number] * POCT glucose (10/18/2023 8:37 PM SPRAY MIXER) Pathologist [facility] Glucose, POC 120 70 - 140 mg/dL [facility] Comment: For Glucose values <35 mg/dl when Hematocrit is >60 mg/dl,the test may not accurately detect significant hypoglycemia,and testing in the Laboratory should be considered if clinically indicated. Blood 10/18/2023 8:37 PM SPRAY MIXER 10/18/2023 8:37 PM SPRAY MIXER Jaqueline Valero MD LAB POCT ORDERABLES - APRIL CE Final Result Performing Organization Address [facility] Co de Phone Number [facility] [address] Department [place] [address] * (ABNORMAL) Blood gas, arterial (10/18/2023 8:34 PM SPRAY MIXER) pH, Art 7.27(L) 7.35 - 7.45 [facility] PCO2, Arterial 46(H) 35 - 45 mmHg [facility] PO2, Arterial 88 83 - 108 mmHg [facility] HCO3 Art (Calculated) 21 20 - 30 mmol/L [facility] BE, art -6 mmol/L [facility] Comment: Interpretive Data No Reference Range Established Current Interpretive Data was last revised on 2017 O2 Sat Art (Calculated) 95 94 - 98 % [facility] Blood 10/18/2023 8:34 PM SPRAY MIXER 10/18/2023 8:40 PM SPRAY MIXER Result [facility] Gamal Fox NP LAB BLOOD ORDERABLES Final Result Performing Organization Address [facility] Co de Phone Number [facility] [address] Department [place] [address] * Critical Care (10/18/2023 6:49 PM SPRAY MIXER) Narrative Kirsten Burns MD - 10/18/2023 6:49 PM SPRAY MIXER Gamal Fox NP ? 10/19/2023 ??3:18 AM Critical Care Performed by: Gamal Fox NP Authorized by: Gamal Fox NP ?? CRITICAL CARE: ??Team: ??[facility] ??Shift: ??PM ??Level of Billing: ??Critical [...] plan with the ICU team and other medical/technology applications consultant staff, making frequent assessments and decisions [...] Result * POCT glucose (10/18/2023 6:38 PM SPRAY MIXER) Glucose, POC 135 70 - 140 mg/dL [facility] Comment: For Glucose values <35 mg/dl when Hematocrit is >60 mg/dl,the test may not accurately detect significant hypoglycemia,and testing in the Laboratory should be considered if clinically indicated. Blood 10/18/2023 6:38 PM SPRAY MIXER 10/18/2023 6:38 PM SPRAY MIXER Jaqueline Valero MD LAB POCT ORDERABLES - APRIL CE Final Result [facility] [address] Department [place] [address] * POCT glucose (10/18/2023 5:45 PM SPRAY MIXER) Glucose, POC 132 70 - 140 mg/dL [facility] Comment: For Glucose values <35 mg/dl when Hematocrit is >60 mg/dl,the test may not accurately detect significant hypoglycemia,and testing in the Laboratory should be considered if clinically indicated. Blood 10/18/2023 5:45 PM SPRAY MIXER 10/18/2023 5:45 PM SPRAY MIXER us Jaqueline Valero MD LAB POCT ORDERABLES - APRIL CE Final Result [facility] [address] Department [place] [address] * XR Kub (10/18/2023 5:42 PM SPRAY MIXER) Anatomical Region Laterality Modality Body, Abdomen N/A Computed Radiogr aphy 10/18/2023 5:50 PM SPRAY MIXER Impressions 10/18/2023 5:50 PM SPRAY MIXER FINDINGS/IMPRESSION: ?? Apically oriented left-sided chest tubes and mediastinal drains. Overall paucity of gas distended bowel loops within the abdomen and pelvis. ??No visualized dilated bowel loops. ??No large volume of intraperitoneal free air, although evaluation is limited with supine positioning. ??A Nguyen catheter temperature probe is present. ??No acute osseous abnormality. Electronically signed by: Camilo Cheatham MD Narrative 10/18/2023 5:50 PM SPRAY MIXER EXAMINATION: XR KUB HISTORY: Nausa vomiting VIEWS: [...] Result * POCT glucose (10/18/2023 4:47 PM SPRAY MIXER) Glucose, POC 138 70 - 140 mg/dL [facility] Comment: For Glucose values <35 mg/dl when Hematocrit is >60 mg/dl,the test may not accurately detect significant hypoglycemia,and testing in the Laboratory should be considered if clinically indicated. Blood 10/18/2023 4:47 PM SPRAY MIXER 10/18/2023 4:47 PM SPRAY MIXER Jaqueline Valero MD LAB POCT ORDERABLES - APRIL CE Final Result Performing Organization Address [facility] de Phone Number [facility] [address] [facility] [place] [address] * aPTT (10/18/2023 2:55 PM SPRAY MIXER) [employer] Signature aPTT 38 28 - 38 sec [facility] Comment: Interpretive Data Heparin therapeutic range: 66.0 - 100.0 seconds. Range based on correlation with therapeutic heparin activity range of 0.3 - 0.7 Units/mL. Current interpretive data was last revised on 2023. Blood 10/18/2023 2:55 PM SPRAY MIXER 10/18/2023 3:16 PM SPRAY MIXER Result [facility] Jaqueline Valero MD LAB BLOOD ORDERABLES Final Result Performing Organization Address [facility] de Phone Number [facility] [address] [facility] [place] [address] * POCT glucose (10/18/2023 2:52 PM SPRAY MIXER) Glucose, POC 104 70 - 140 mg/dL [facility] Comment: For Glucose values <35 mg/dl when Hematocrit is >60 mg/dl,the test may not accurately detect significant hypoglycemia,and testing in the Laboratory should be considered if clinically indicated. Blood 10/18/2023 2:52 PM SPRAY MIXER 10/18/2023 2:52 PM SPRAY MIXER Result [facility] Jaqueline Valero MD LAB POCT ORDERABLES - APRIL CE Final Result Performing Organization Address [facility] Co de Phone Number [facility] [address] [facility] [place] [address] * POCT glucose (10/18/2023 1:53 PM SPRAY MIXER) Glucose, POC 87 70 - 140 mg/dL [facility] Comment: For Glucose values <35 mg/dl when Hematocrit is >60 mg/dl,the test may not accurately detect significant hypoglycemia,and testing in the Laboratory should be considered if clinically indicated. Blood 10/18/2023 1:53 PM SPRAY MIXER 10/18/2023 1:53 PM SPRAY MIXER Jaqueline Valero MD LAB POCT ORDERABLES - APRIL CE Final Result Performing Organization Address [facility] Co de Phone Number [facility] [address] [facility] [place] [address] * POCT glucose (10/18/2023 12:48 PM SPRAY MIXER) Glucose, POC 83 70 - 140 mg/dL [facility] Comment: For Glucose values <35 mg/dl when Hematocrit is >60 mg/dl,the test may not accurately detect significant hypoglycemia,and testing in the Laboratory should be considered if clinically indicated. Blood 10/18/2023 12:4 8 PM SPRAY MIXER 10/18/2023 12:48 PM SPRAY MIXER Jaqueline Valero MD LAB POCT ORDERABLES - APRIL CE Final Result Performing Organization Address [facility] Co de Phone Number [facility] [address] [place] [address] * POCT glucose (10/18/2023 12:00 PM SPRAY MIXER) Glucose, POC 81 70 - 140 mg/dL [facility] Comment: For Glucose values <35 mg/dl when Hematocrit is >60 mg/dl,the test may not accurately detect significant hypoglycemia,and testing in the Laboratory should be considered if clinically indicated. Blood 10/18/2023 12:0 0 PM SPRAY MIXER 10/18/2023 12:00 PM SPRAY MIXER Jaqueline Valero MD LAB POCT ORDERABLES - APRIL CE Final Result Performing Organization Address [facility] Co de Phone Number [facility] [address] [facility] [place] [address] * POCT glucose (10/18/2023 10:57 AM SPRAY MIXER) Glucose, POC 76 70 - 140 mg/dL [facility] Comment: For Glucose values <35 mg/dl when Hematocrit is >60 mg/dl,the test may not accurately detect significant hypoglycemia,and testing in the Laboratory should be considered if clinically indicated. Blood 10/18/2023 10:5 7 AM SPRAY MIXER 10/18/2023 10:57 AM SPRAY MIXER Result [facility] Jaqueline Valero MD LAB POCT ORDERABLES - APRIL CE Final Result Performing Organization Address [facility] de Phone Number [facility] [address] [facility] [place] [address] * POCT glucose (10/18/2023 9:52 AM SPRAY MIXER) Glucose, POC 92 70 - 140 mg/dL [facility] Comment: For Glucose values <35 mg/dl when Hematocrit is >60 mg/dl,the test may not accurately detect significant hypoglycemia,and testing in the Laboratory should be considered if clinically indicated. Blood 10/18/2023 9:52 AM SPRAY MIXER 10/18/2023 9:52 AM SPRAY MIXER Result [facility] Jaqueline Valero MD LAB POCT ORDERABLES - APRIL CE Final Result Performing Organization Address [facility] Co de Phone Number [facility] [address] [facility] [place] [address] * POCT glucose (10/18/2023 8:46 AM SPRAY MIXER) Glucose, POC 115 70 - 140 mg/dL [facility] Comment: For Glucose values <35 mg/dl when Hematocrit is >60 mg/dl,the test may not accurately detect significant hypoglycemia,and testing in the Laboratory should be considered if clinically indicated. Blood 10/18/2023 8:46 AM SPRAY MIXER 10/18/2023 8:46 AM SPRAY MIXER Jaqueline Valero MD LAB POCT ORDERABLES - APRIL CE Final Result Performing Organization Address [facility] de Phone Number [facility] [address] Department [place] [address] * POCT glucose (10/18/2023 7:58 AM SPRAY MIXER) Glucose, POC 130 70 - 140 mg/dL [facility] Comment: For Glucose values <35 mg/dl when Hematocrit is >60 mg/dl,the test may not accurately detect significant hypoglycemia,and testing in the Laboratory should be considered if clinically indicated. Blood 10/18/2023 7:58 AM SPRAY MIXER 10/18/2023 7:58 AM SPRAY MIXER Jaqueline Valero MD LAB POCT ORDERABLES - APRIL CE Final Result Performing Organization Address [facility] de Phone Number [facility] [address] [place] [address] * Critical Care (10/18/2023 7:27 AM SPRAY MIXER) Narrative Kirsten Burns MD - 10/18/2023 7:27 AM SPRAY MIXER Dawna Castellanos NP ? 10/18/2023 ??2:29 PM Critical Care Performed by: Dawna Castellanos NP Authorized by: Dawna Castellanso NP ?? CRITICAL CARE: ??Team: ??[facility] ??Shift: ??AM ??Level of Billing: ??Critical [...] plan with the ICU team and other medical/technology applications consultant staff, making frequent assessments and decisions [...] * (ABNORMAL) POCT glucose (10/18/2023 7:02 AM SPRAY MIXER) Glucose, POC 169(H) 70 - 140 mg/dL [facility] Comment: For Glucose values <35 mg/dl when Hematocrit is >60 mg/dl,the test may not accurately detect significant hypoglycemia,and testing in the Laboratory should be considered if clinically indicated. Blood 10/18/2023 7:02 AM SPRAY MIXER 10/18/2023 7:02 AM SPRAY MIXER Jaqueline Valero MD LAB POCT ORDERABLES - APRIL CE Final Result [facility] [address] Department [place] [address] * (ABNORMAL) POCT glucose (10/18/2023 6:04 AM SPRAY MIXER) Glucose, POC 196(H) 70 - 140 mg/dL [facility] Comment: For Glucose values <35 mg/dl when Hematocrit is >60 mg/dl,the test may not accurately detect significant hypoglycemia,and testing in the Laboratory should be considered if clinically indicated. Blood 10/18/2023 6:04 AM SPRAY MIXER 10/18/2023 6:04 AM SPRAY MIXER us Jaqueline Valero MD LAB POCT ORDERABLES - APRIL CE Final Result [facility] [address] Department [place] [address] * XR Chest 1 View - Portable - in AM (10/18/2023 5:38 AM SPRAY MIXER) Anatomical Region Laterality Modality Body, Chest N/A Computed Radiogr aphy 10/18/2023 9:33 AM SPRAY MIXER Impressions 10/18/2023 9:33 AM SPRAY MIXER Comparison 10/17/2023 at 1:37 PM. ??Median sternotomy wires and sternal plates again seen. ??Aortic valve replacement again noted. ??[place]-Daniel catheter tip projects over the proximal portion [...] Ramirez Blake M.D. Narrative 10/18/2023 9:33 AM SPRAY MIXER EXAMINATION: Chest 1 view Procedure Note Ramirez Blake MD - 10/18/2023 EXAMINATION: Chest 1 view IMPRESSION: Comparison 10/17/2023 at 1:37 PM. Median sternotomy wires and sternal plates again seen. Aortic valve replacement again noted. [place]-Daniel catheter tip projects over the proximal portion [...] signed by: Ramirez Blake M.D. Byron Olvera COORDINATOR OF HEALTH SERVICES IMG XR PROCEDURES Final Result * (ABNORMAL) POCT glucose (10/18/2023 5:04 AM SPRAY MIXER) Glucose, POC 172(H) 70 - 140 mg/dL [facility] Comment: For Glucose values <35 mg/dl when Hematocrit is >60 mg/dl,the test may not accurately detect significant hypoglycemia,and testing in the Laboratory should be considered if clinically indicated. Blood 10/18/2023 5:04 AM SPRAY MIXER 10/18/2023 5:04 AM SPRAY MIXER Result [facility] Jaqueline Valero MD LAB POCT ORDERABLES - APRIL CE Final Result Performing Organization Address [facility] de Phone Number [facility] [address] [employer] [place], [place] [id number] * (ABNORMAL) POCT glucose (10/18/2023 4:03 AM SPRAY MIXER) Glucose, POC 165(H) 70 - 140 mg/dL [facility] Comment: For Glucose values <35 mg/dl when Hematocrit is >60 mg/dl,the test may not accurately detect significant hypoglycemia,and testing in the Laboratory should be considered if clinically indicated. Blood 10/18/2023 4:03 AM SPRAY MIXER 10/18/2023 4:03 AM SPRAY MIXER Result [facility] Jaqueline Valero MD LAB POCT ORDERABLES - APRIL CE Final Result Performing Organization Address [facility] Co de Phone Number [facility] [address] [facility] [place] [address] * (ABNORMAL) POCT glucose (10/18/2023 3:04 AM SPRAY MIXER) Glucose, POC 167(H) 70 - 140 mg/dL [facility] Comment: For Glucose values <35 mg/dl when Hematocrit is >60 mg/dl,the test may not accurately detect significant hypoglycemia,and testing in the Laboratory should be considered if clinically indicated. Blood 10/18/2023 3:04 AM SPRAY MIXER 10/18/2023 3:04 AM SPRAY MIXER Jaqueline Valero MD LAB POCT ORDERABLES - APRIL CE Final Result Performing Organization Address [facility] Co de Phone Number [facility] [address] [facility] [place] [address] * (ABNORMAL) POCT glucose (10/18/2023 1:57 AM SPRAY MIXER) Glucose, POC 178(H) 70 - 140 mg/dL [facility] Comment: For Glucose values <35 mg/dl when Hematocrit is >60 mg/dl,the test may not accurately detect significant hypoglycemia,and testing in the Laboratory should be considered if clinically indicated. Blood 10/18/2023 1:57 AM SPRAY MIXER 10/18/2023 1:57 AM SPRAY MIXER us Jaqueline Valero MD LAB POCT ORDERABLES - APRIL CE Final Result Performing Organization Address [facility] de Phone Number [facility] [address] [facility] [place] [address] * (ABNORMAL) Fibrinogen (10/18/2023 1:54 AM SPRAY MIXER) [facility] Fibrinogen 435(H) 170 - 400 mg/dL [facility] Blood 10/18/2023 1:54 AM SPRAY MIXER 10/18/2023 2:14 AM SPRAY MIXER us Jaqueline Valero MD LAB BLOOD ORDERABLES Final Result Performing Organization Address [facility] Co de Phone Number [facility] [address] [place] [address] * eGFR (10/18/2023 1:54 AM SPRAY MIXER) Pathologist [facility] eGFR 5 mL/min/1. 73 m2 [facility] Comment: Interpretive Data Reference Interval Normal [...] last reviewed 2021. Blood 10/18/2023 1:54 AM SPRAY MIXER 10/18/2023 2:14 AM SPRAY MIXER us Dawna Castellanos COORDINATOR OF HEALTH SERVICES LAB BLOOD ORDERABLES Ann Marie kramer Result [facility] [address] Department [place] [address] * Blood gas, arterial (10/18/2023 1:54 AM SPRAY MIXER) Pathologist [facility] pH, Art 7.35 7.35 - 7.45 [facility] PCO2, Arterial 38 35 - 45 mmHg [facility] PO2, Arterial 92 83 - 108 mmHg [facility] HCO3 Art (Calculated) 21 20 - 30 mmol/L [facility] BE, art -4 mmol/L [facility] Comment: Interpretive Data No Reference Range Established Current Interpretive Data was last revised on 2017 O2 Sat Art (Calculated) 97 94 - 98 % [facility] Blood 10/18/2023 1:54 AM SPRAY MIXER 10/18/2023 2:11 AM SPRAY MIXER Dawna Castellanos COORDINATOR OF HEALTH SERVICES LAB BLOOD ORDERABLES Ann Marie l Result Performing Organization Address [facility] Co de Phone Number [facility] [address] [place] [address] * Protime-INR (10/18/2023 1:54 AM SPRAY MIXER) PT 13.4 10.3 - 13.7 sec [facility] INR 1.18 0.90 - 1.20 [facility] Comment: Interpretive data Oral anticoagulant therapeutic ranges: Venous thromboembolism prophylaxis or treatment: 2.0-3.0 CARDIOLOGY Standard range: 2.0-3.0 High-intensity range: 2.5-3.5 Refer to indication-specific guidelines for appropriate target ranges for prosthetic heart valve replacement. Current interpretive data was last revised on 2019. Blood 10/18/2023 1:54 AM SPRAY MIXER 10/18/2023 2:14 AM SPRAY MIXER Jaqueline Valero MD LAB BLOOD ORDERABLES Final Result Performing Organization Address [facility] Co de Phone Number [facility] [address] [place] [address] * Magnesium (10/18/2023 1:54 AM SPRAY MIXER) Magnesium 2.5 1.4 - 2.5 mg/dL [facility] Blood 10/18/2023 1:54 AM SPRAY MIXER 10/18/2023 2:14 AM SPRAY MIXER Byron Olvera COORDINATOR OF HEALTH SERVICES LAB BLOOD ORDERABLES Fi nal Result Performing Organization Address [facility]/State/ZIP Co de Phone Number [facility] [address] Department [place] [address] * Calcium, ionized (10/18/2023 1:54 AM SPRAY MIXER) Calcium, Ionized 4.94 4.50 - 5.10 mg/dL [facility] Blood 10/18/2023 1:54 AM SPRAY MIXER 10/18/2023 2:12 AM SPRAY MIXER Byron Olvera NP LAB BLOOD ORDERABLES Fi nal Result [facility] [address] Department [place] [address] * (ABNORMAL) Renal function panel (10/18/2023 1:54 AM SPRAY MIXER) Pathologist [facility] Sodium 136 135 - 145 mmol/L [facility] Potassium, pl 4.0 3.3 - 4.9 mmol/L [facility] Chloride 98 97 - 110 mmol/L [facility] CO2 20(L) 22 - 32 mmol/L [facility] Anion gap 18(H) 2 - 15 mmol/L [facility] BUN 71(H) 6 - 25 mg/dL [facility] Creatinine 10.47(H) 0.80 - 1.30 mg/dL [facility] Glucose 174 70 - 199 mg/dL [facility] Comment: Interpretive Data Fasting glucose >/= [...] 2022. Calcium 9.2 8.5 - 10.3 mg/dL [facility] Phosphorus, pl 6.5(H) 2.3 - 4.5 mg/dL [facility] Albumin 2.6(L) 3.5 - 5.0 g/dL [facility] Blood 10/18/2023 1:54 AM SPRAY MIXER 10/18/2023 2:14 AM SPRAY MIXER Byron Olvera COORDINATOR OF HEALTH SERVICES LAB BLOOD ORDERABLES Fi nal Result Performing Organization Address [facility] Co de Phone Number [facility] [address] [place] [address] * (ABNORMAL) CBC without differential (10/18/2023 1:54 AM SPRAY MIXER) [facility] WBC 8.3 3.8 - 9.9 K/cumm [facility] Hgb 8.5(L) 13.0 - 17.5 g/dL [facility] Hct 26.4(L) 38.9 - 50.3 % [facility] Plt 164 150 - 400 K/cumm [facility] MPV 11.1 9.1 - 12.3 fL [facility] RBC 2.89(L) 4.30 - 5.80 M/cumm [facility] MCV 91.3 81.3 - 96.4 fL [facility] MCH 29.4 27.1 - 33.3 pg [facility] MCHC 32.2(L) 32.3 - 35.7 g/dL [facility] RDW CV 15.5(H) 11.1 - 14.9 % [facility] RDW SD 49.9(H) 35.7 - 48.1 fL [facility] NRBC abs 0.02(H) 0.00 - 0.01 K/cumm [facility] Blood 10/18/2023 1:54 AM SPRAY MIXER 10/18/2023 2:14 AM SPRAY MIXER Byron Olvera NP LAB BLOOD ORDERABLES Fi nal Result Performing Organization Address City/[facility]/ZIP Co de Phone Number [facility] [address] [place] [address] * (ABNORMAL) POCT glucose (10/18/2023 12:57 AM SPRAY MIXER) Glucose, POC 169(H) 70 - 140 mg/dL [facility] Comment: For Glucose values <35 mg/dl when Hematocrit is >60 mg/dl,the test may not accurately detect significant hypoglycemia,and testing in the Laboratory should be considered if clinically indicated. Blood 10/18/2023 12:5 7 AM SPRAY MIXER 10/18/2023 12:57 AM SPRAY MIXER Jaqueline Valero MD LAB POCT ORDERABLES - APRIL CE Final Result Performing Organization Address [facility] Co de Phone Number [facility] [address] [facility] [place] [address] * (ABNORMAL) POCT glucose (10/18/2023 12:04 AM SPRAY MIXER) Glucose, POC 150(H) 70 - 140 mg/dL [facility] Comment: For Glucose values <35 mg/dl when Hematocrit is >60 mg/dl,the test may not accurately detect significant hypoglycemia,and testing in the Laboratory should be considered if clinically indicated. Blood 10/18/2023 12:0 4 AM SPRAY MIXER 10/18/2023 12:04 AM SPRAY MIXER Jaqueline Valero MD LAB POCT ORDERABLES - APRIL CE Final Result Performing Organization Address [facility] Co de Phone Number [facility] [address] [facility] [place] [address] * POCT glucose (10/17/2023 11:00 PM SPRAY MIXER) Glucose, POC 111 70 - 140 mg/dL [facility] Comment: For Glucose values <35 mg/dl when Hematocrit is >60 mg/dl,the test may not accurately detect significant hypoglycemia,and testing in the Laboratory should be considered if clinically indicated. Blood 10/17/2023 11:0 0 PM SPRAY MIXER 10/17/2023 11:00 PM SPRAY MIXER Jaqueline Valero MD LAB POCT ORDERABLES - APRIL CE Final Result [facility] [address] Department [place] [address] * (ABNORMAL) Blood gas, arterial (10/17/2023 10:56 PM SPRAY MIXER) Pathologist [facility] pH, Art 7.33(L) 7.35 - 7.45 [facility] PCO2, Arterial 38 35 - 45 mmHg [facility] PO2, Arterial 102 83 - 108 mmHg [facility] HCO3 Art (Calculated) 20 20 - 30 mmol/L [facility] BE, art -5 mmol/L [facility] Comment: Interpretive Data No Reference Range Established Current Interpretive Data was last revised on 2017 O2 Sat Art (Calculated) 97 94 - 98 % [facility] Blood 10/17/2023 10:5 6 PM SPRAY MIXER 10/17/2023 11:05 PM SPRAY MIXER Dawna Castellanos COORDINATOR OF HEALTH SERVICES LAB BLOOD ORDERABLES Ann Marie l Result [facility] [address] Department [place] [address] * (ABNORMAL) Differential, auto (10/17/2023 10:55 PM SPRAY MIXER) Pathologist [facility] Neutrophil abs 5.7 1.5 - 6.5 K/cumm [facility] Imm gran abs 0.1 0.0 - 0.1 K/cumm [facility] Lymphocyte abs 0.7(L) 0.8 - 3.3 K/cumm [facility] Monocyte abs 1.1(H) 0.2 - 0.8 K/cumm [facility] Eosinophil abs 0.1 0.0 - 0.5 K/cumm [facility] Basophil abs 0.0 0.0 - 0.1 K/cumm [facility] Neutrophil pct 73.6 % [facility] Comment: Interpretive Data Percent cell count reference ranges are not reported, since discordance with absolute values may lead to misinterpretation of CBC data. Current Interpretive Data was last revised on 2017. Imm gran pct 1.8 % [facility] Comment: Interpretive Data Percent cell count reference ranges are not reported, since discordance with absolute values may lead to misinterpretation of CBC data. Current Interpretive Data was last revised on 2017. Lymphocyte pct 9.3 % [facility] Comment: Interpretive Data Percent cell count reference ranges are not reported, since discordance with absolute values may lead to misinterpretation of CBC data. Current Interpretive Data was last revised on 2017. Monocyte pct 13.7 % [facility] Comment: Interpretive Data Percent cell count reference ranges are not reported, since discordance with absolute values may lead to misinterpretation of CBC data. Current Interpretive Data was last revised on 2017. Eosinophil pct 1.3 % [facility] Comment: Interpretive Data Percent cell count reference ranges are not reported, since discordance with absolute values may lead to misinterpretation of CBC data. Current Interpretive Data was last revised on 2017. Basophil pct 0.3 % [facility] Comment: Interpretive Data Percent cell count reference ranges are not reported, since discordance with absolute values may lead to misinterpretation of CBC data. Current Interpretive Data was last revised on 2017. Blood 10/17/2023 10:5 5 PM SPRAY MIXER 10/17/2023 11:19 PM SPRAY MIXER Gamal Fox NP LAB BLOOD ORDERABLES Final Result Performing Organization Address City/[facility]/ZIP Co de Phone Number [facility] [address] Department [place] [address] * Lactate (10/17/2023 10:55 PM SPRAY MIXER) Lactate 0.9 0.7 - 2.0 mmol/L [facility] Blood 10/17/2023 10:5 5 PM SPRAY MIXER 10/17/2023 11:04 PM SPRAY MIXER Gamal oFx NP LAB BLOOD ORDERABLES Final Result [facility] [address] [facility] [place] [address] * Calcium, ionized (10/17/2023 10:55 PM SPRAY MIXER) [facility] Calcium, Ionized 4.51 4.50 - 5.10 mg/dL [facility] Blood 10/17/2023 10:5 5 PM SPRAY MIXER 10/17/2023 11:05 PM SPRAY MIXER Gamal Fox COORDINATOR OF HEALTH SERVICES LAB BLOOD ORDERABLES Final Result Performing Organization Address City/[facility] Co de Phone Number [facility] [address] [place] [address] * (ABNORMAL) CBC with auto differential (10/17/2023 10:55 PM SPRAY MIXER) [facility] WBC 7.7 3.8 - 9.9 K/cumm [facility] Hgb 8.8(L) 13.0 - 17.5 g/dL [facility] Hct 27.2(L) 38.9 - 50.3 % [facility] Plt 165 150 - 400 K/cumm [facility] MPV 11.0 9.1 - 12.3 fL [facility] RBC 2.94(L) 4.30 - 5.80 M/cumm [facility] MCV 92.5 81.3 - 96.4 fL [facility] MCH 29.9 27.1 - 33.3 pg [facility] MCHC 32.4 32.3 - 35.7 g/dL [facility] RDW CV 15.6(H) 11.1 - 14.9 % [facility] RDW SD 50.5(H) 35.7 - 48.1 fL [facility] NRBC abs 0.03(H) 0.00 - 0.01 K/cumm [facility] Blood 10/17/2023 10:5 5 PM SPRAY MIXER 10/17/2023 11:19 PM SPRAY MIXER Gamal Fox NP LAB BLOOD ORDERABLES Final Result Performing Organization Address [facility] Co de Phone Number [facility] [address] [place] [address] * POCT glucose (10/17/2023 10:19 PM SPRAY MIXER) Glucose, POC 97 70 - 140 mg/dL [facility] Comment: For Glucose values <35 mg/dl when Hematocrit is >60 mg/dl,the test may not accurately detect significant hypoglycemia,and testing in the Laboratory should be considered if clinically indicated. Blood 10/17/2023 10:1 9 PM SPRAY MIXER 10/17/2023 10:19 PM SPRAY MIXER Jaqueline Valero MD LAB POCT ORDERABLES - APRIL CE Final Result Performing Organization Address [facility] de Phone Number [facility] [address] [facility] [place] [address] * POCT glucose (10/17/2023 9:00 PM SPRAY MIXER) Glucose, POC 127 70 - 140 mg/dL [facility] Comment: For Glucose values <35 mg/dl when Hematocrit is >60 mg/dl,the test may not accurately detect significant hypoglycemia,and testing in the Laboratory should be considered if clinically indicated. Blood 10/17/2023 9:00 PM SPRAY MIXER 10/17/2023 9:00 PM SPRAY MIXER Jaqueline Valero MD LAB POCT ORDERABLES - APRIL CE Final Result Performing Organization Address [facility] Co de Phone Number [facility] [address] Department [address] [place], [place] [id number] [phone] * Transfuse RBC (10/17/2023 8:13 PM SPRAY MIXER) Blood Kirsten Burns MD BLOOD TRANSFUSION ORDERA BLES Final Result Performing Organization Address [facility] Co de Phone Number [facility] [address] Department [place] [address] * Transfuse RBC: 1 Units (10/17/2023 8:13 PM SPRAY MIXER) Blood Kirsten Burns MD BLOOD TRANSFUSION ORDERA BLES Final Result * (ABNORMAL) POCT glucose (10/17/2023 8:07 PM SPRAY MIXER) Glucose, POC 157(H) 70 - 140 mg/dL [facility] Comment: For Glucose values <35 mg/dl when Hematocrit is >60 mg/dl,the test may not accurately detect significant hypoglycemia,and testing in the Laboratory should be considered if clinically indicated. Blood 10/17/2023 8:07 PM SPRAY MIXER 10/17/2023 8:07 PM SPRAY MIXER Result [facility] Jaqueline Valero MD LAB POCT ORDERABLES - APRIL CE Final Result Performing Organization Address [facility] Co de Phone Number [facility] [address] [facility] [place] [address] * POCT glucose (10/17/2023 7:18 PM SPRAY MIXER) Glucose, POC 135 70 - 140 mg/dL [facility] Comment: For Glucose values <35 mg/dl when Hematocrit is >60 mg/dl,the test may not accurately detect significant hypoglycemia,and testing in the Laboratory should be considered if clinically indicated. Blood 10/17/2023 7:18 PM SPRAY MIXER 10/17/2023 7:18 PM SPRAY MIXER Jaqueline Valero MD LAB POCT ORDERABLES - APRIL CE Final Result Performing Organization Address City/[facility]/ZIP Co de Phone Number [facility] [address] Department [place] [address] * Critical Care (10/17/2023 6:42 PM SPRAY MIXER) Narrative Kirsten Burns MD - 10/17/2023 6:42 PM SPRAY MIXER Gamal Fox NP ? 10/18/2023 ??5:08 AM Critical Care Performed by: Gamal Fox NP Authorized by: Gamal Fox NP ?? CRITICAL CARE: ??Team: ??[facility] ??Shift: ??PM ??Level of Billing: ??Critical [...] plan with the ICU team and other medical/technology applications consultant staff, making frequent assessments and decisions [...] Prepare RBC: 1 Units (10/17/2023 6:34 PM SPRAY MIXER) Product code [id number] Unit Number [id number] 1-2 [facility] Product Blood Type APOS [facility] Dispense Status RETURNED [facility] Blood 10/17/2023 6:34 PM SPRAY MIXER Narrative [facility] - 10/19/2023 7:08 AM SPRAY MIXER Other indication->Bleeding post cardiac surgery Are special requirements needed? (All products are leukoreduced and CMV- safe)- >No Date required:-[id number] LRRBC # of [id number] Reasons:-Other (specify)} Kirsten Burns MD BLOOD BANK PRODUCT ORDER ROVERTO Final Result Performing Organization Address [facility]/ZIP Co de Phone Number [facility] [address] [facility] [place] [address] * Potassium (10/17/2023 6:14 PM SPRAY MIXER) [facility] Potassium, pl 4.2 3.3 - 4.9 mmol/L [facility] Blood 10/17/2023 6:14 PM SPRAY MIXER 10/17/2023 6:27 PM SPRAY MIXER Byron Olvera COORDINATOR OF HEALTH SERVICES LAB BLOOD ORDERABLES Fi nal Result Performing Organization Address [facility] Co de Phone Number [facility] [address] [place] [address] * (ABNORMAL) CBC without differential (10/17/2023 6:12 PM SPRAY MIXER) [facility] WBC 7.2 3.8 - 9.9 K/cumm [facility] Hgb 8.0(L) 13.0 - 17.5 g/dL [facility] Hct 24.7(L) 38.9 - 50.3 % [facility] Plt 161 150 - 400 K/cumm [facility] MPV 10.8 9.1 - 12.3 fL [facility] RBC 2.68(L) 4.30 - 5.80 M/cumm [facility] MCV 92.2 81.3 - 96.4 fL [facility] MCH 29.9 27.1 - 33.3 pg [facility] MCHC 32.4 32.3 - 35.7 g/dL [facility] RDW CV 15.5(H) 11.1 - 14.9 % [facility] RDW SD 50.4(H) 35.7 - 48.1 fL [facility] NRBC abs 0.04(H) 0.00 - 0.01 K/cumm [facility] Blood 10/17/2023 6:12 PM SPRAY MIXER 10/17/2023 6:18 PM SPRAY MIXER us Dawna Castellanos COORDINATOR OF HEALTH SERVICES LAB BLOOD ORDERABLES Ann Marie l Result Performing Organization Address [facility] Co de Phone Number [facility] [address] [facility] [place] [address] * (ABNORMAL) Protime-INR (10/17/2023 6:12 PM SPRAY MIXER) PT 13.9(H) 10.3 - 13.7 sec [facility] INR 1.22(H) 0.90 - 1.20 [facility] Comment: Interpretive data Oral anticoagulant therapeutic ranges: Venous thromboembolism prophylaxis or treatment: 2.0-3.0 CARDIOLOGY Standard range: 2.0-3.0 High-intensity range: 2.5-3.5 Refer to indication-specific guidelines for appropriate target ranges for prosthetic heart valve replacement. Current interpretive data was last revised on 2019. Blood 10/17/2023 6:12 PM SPRAY MIXER 10/17/2023 6:18 PM SPRAY MIXER [facility] LAB BLOOD ORDERABLES Ann Marie l Result Performing Organization Address [facility] Co de Phone Number [facility] [address] [facility] [place] [address] * Fibrinogen (10/17/2023 6:12 PM SPRAY MIXER) Pathologist [facility] Fibrinogen 386 170 - 400 mg/dL [facility] Blood 10/17/2023 6:12 PM SPRAY MIXER 10/17/2023 6:18 PM SPRAY MIXER [facility] Leeann Glendale COORDINATOR OF HEALTH SERVICES LAB BLOOD ORDERABLES Ann Marie l Result Performing Organization Address City/[facility] Co de Phone Number [facility] [address] [facility] [place] [address] * aPTT (10/17/2023 6:12 PM SPRAY MIXER) aPTT 32 28 - 38 sec [facility] Comment: Interpretive Data Heparin therapeutic range: 66.0 - 100.0 seconds. Range based on correlation with therapeutic heparin activity range of 0.3 - 0.7 Units/mL. Current interpretive data was last revised on 2023. Blood 10/17/2023 6:12 PM SPRAY MIXER 10/17/2023 6:18 PM SPRAY MIXER Dawna Castellanos COORDINATOR OF HEALTH SERVICES LAB BLOOD ORDERABLES Ann Marie l Result Performing Organization Address [facility] de Phone Number [facility] [address] Department [place] [address] * (ABNORMAL) Blood gas, arterial (10/17/2023 6:12 PM SPRAY MIXER) pH, Art 7.40 7.35 - 7.45 [facility] PCO2, Arterial 35 35 - 45 mmHg [facility] PO2, Arterial 69(L) 83 - 108 mmHg [facility] HCO3 Art (Calculated) 22 20 - 30 mmol/L [facility] BE, art -2 mmol/L [facility] Comment: Interpretive Data No Reference Range Established Current Interpretive Data was last revised on 2017 O2 Sat Art (Calculated) 94 94 - 98 % [facility] Blood 10/17/2023 6:12 PM SPRAY MIXER 10/17/2023 6:15 PM SPRAY MIXER Dawna Castellanos COORDINATOR OF HEALTH SERVICES LAB BLOOD ORDERABLES Ann Marie l Result Performing Organization Address [facility] Co de Phone Number [facility] [address] Department [place] [address] * POCT glucose (10/17/2023 6:11 PM SPRAY MIXER) Glucose, POC 130 70 - 140 mg/dL [facility] Comment: For Glucose values <35 mg/dl when Hematocrit is >60 mg/dl,the test may not accurately detect significant hypoglycemia,and testing in the Laboratory should be considered if clinically indicated. Blood 10/17/2023 6:11 PM SPRAY MIXER 10/17/2023 6:11 PM SPRAY MIXER Jaqueline Valero MD LAB POCT ORDERABLES - APRIL CE Final Result Performing Organization Address [facility] Co de Phone Number [facility] [address] [place] [employer] [place] [address] * Transfuse plasma Standard plasma (10/17/2023 5:46 PM SPRAY MIXER) Blood Kirsten Burns MD BLOOD TRANSFUSION ORDERA BLES Final Result Performing Organization Address [facility] Co de Phone Number [facility] [address] [place] [address] * Transfuse plasma: 1 Units Standard plasma (10/17/2023 5:46 PM SPRAY MIXER) Blood Kirsten Burns MD BLOOD TRANSFUSION ORDERA BLES Final Result * Prepare plasma: 1 Units Standard plasma (10/17/2023 5:09 PM SPRAY MIXER) Product code [id number] Unit Number [id number]- U [facility] Product Blood Type APOS [facility] Dispense Status PRESUMED TRANSFUSED [facility] Blood (Blood, Venous) 10/17/2023 5:09 PM SPRAY MIXER Narrative [facility] - 10/17/2023 10:15 PM SPRAY MIXER Is this plasma order intended for a COVID-19 patient as convalescent plasma?->Standard plasma Special Requirements Needed?->No Date required:-[id number] FFP # of Units:-1-Units Reasons:-Active major bleeding with coagulopathy} Kirsten Burns MD BLOOD BANK PRODUCT ORDER ROVERTO Final Result Performing Organization Address [facility] Co de Phone Number [facility] [address] [place] [address] * POCT glucose (10/17/2023 4:50 PM SPRAY MIXER) Glucose, POC 110 70 - 140 mg/dL [facility] Comment: For Glucose values <35 mg/dl when Hematocrit is >60 mg/dl,the test may not accurately detect significant hypoglycemia,and testing in the Laboratory should be considered if clinically indicated. Blood 10/17/2023 4:50 PM SPRAY MIXER 10/17/2023 4:50 PM SPRAY MIXER Result [facility] Jaqueline Valero MD LAB POCT ORDERABLES - APRIL CE Final Result Performing Organization Address [facility] Co de Phone Number [facility] [address] Department [address] [employer] [place], [place] [id number] * Transfuse plasma Standard plasma (10/17/2023 4:33 PM SPRAY MIXER) Blood Result [facility] Kirsten Burns MD BLOOD TRANSFUSION ORDERA BLES Final Result Performing Organization Address [facility] de Phone Number [facility] [address] [place] [address] * Transfuse plasma: 1 Units Standard plasma (10/17/2023 4:33 PM SPRAY MIXER) Blood Result [facility] Kirsten Burns MD BLOOD TRANSFUSION ORDERA BLES Final Result * Transfuse RBC (10/17/2023 4:33 PM SPRAY MIXER) Blood Result [facility] Kirsten Burns MD BLOOD TRANSFUSION ORDERA BLES Final Result Performing Organization Address [facility] de Phone Number [facility] [address] Department [place] [place], [place] [id number] * Transfuse RBC: 1 Units (10/17/2023 4:33 PM SPRAY MIXER) Blood Result [facility] Kirsten Burns MD BLOOD TRANSFUSION ORDERA BLES Final Result * (ABNORMAL) CBC without differential (10/17/2023 4:32 PM SPRAY MIXER) [facility] WBC 7.2 3.8 - 9.9 K/cumm [facility] Hgb 8.5(L) 13.0 - 17.5 g/dL [facility] Hct 26.4(L) 38.9 - 50.3 % [facility] Plt 166 150 - 400 K/cumm [facility] MPV 10.9 9.1 - 12.3 fL [facility] RBC 2.85(L) 4.30 - 5.80 M/cumm [facility] MCV 92.6 81.3 - 96.4 fL [facility] MCH 29.8 27.1 - 33.3 pg [facility] MCHC 32.2(L) 32.3 - 35.7 g/dL [facility] RDW CV 15.5(H) 11.1 - 14.9 % [facility] RDW SD 51.4(H) 35.7 - 48.1 fL [facility] NRBC abs 0.06(H) 0.00 - 0.01 K/cumm [facility] Blood 10/17/2023 4:32 PM SPRAY MIXER 10/17/2023 4:37 PM SPRAY MIXER Dawna Castellanos COORDINATOR OF HEALTH SERVICES LAB BLOOD ORDERABLES Ann Marie kramer Result [facility] [address] Department [place] [address] * (ABNORMAL) aPTT (10/17/2023 4:32 PM SPRAY MIXER) [facility] aPTT 63(H) 28 - 38 sec [facility] Comment: Interpretive Data Heparin therapeutic range: 66.0 - 100.0 seconds. Range based on correlation with therapeutic heparin activity range of 0.3 - 0.7 Units/mL. Current interpretive data was last revised on 2023. Blood 10/17/2023 4:32 PM SPRAY MIXER 10/17/2023 4:37 PM SPRAY MIXER Dawna Castellanos COORDINATOR OF HEALTH SERVICES LAB BLOOD ORDERABLES Ann Marie l Result [facility] [address] [facility] [place] [address] * Fibrinogen (10/17/2023 4:32 PM SPRAY MIXER) [facility] Fibrinogen 393 170 - 400 mg/dL [facility] Blood 10/17/2023 4:32 PM SPRAY MIXER 10/17/2023 4:37 PM SPRAY MIXER Dawna Bradshaw Castellanos COORDINATOR OF HEALTH SERVICES LAB BLOOD ORDERABLES Ann Marie l Result Performing Organization Address [facility] Co de Phone Number [facility] [address] [facility] [place] [address] * (ABNORMAL) Protime-INR (10/17/2023 4:32 PM SPRAY MIXER) [facility] PT 14.0(H) 10.3 - 13.7 sec [facility] INR 1.23(H) 0.90 - 1.20 [facility] Comment: Interpretive data Oral anticoagulant therapeutic ranges: Venous thromboembolism prophylaxis or treatment: 2.0-3.0 CARDIOLOGY Standard range: 2.0-3.0 High-intensity range: 2.5-3.5 Refer to indication-specific guidelines for appropriate target ranges for prosthetic heart valve replacement. Current interpretive data was last revised on 2019. Blood 10/17/2023 4:32 PM SPRAY MIXER 10/17/2023 4:37 PM SPRAY MIXER Dawna [place]shaw [place] COORDINATOR OF HEALTH SERVICES LAB BLOOD ORDERABLES Ann Marie l Result Performing Organization Address City/[facility]/ZIP Co de Phone Number [facility] [address] [facility] [address] [place], [place] [id number] * (ABNORMAL) Blood gas, arterial (10/17/2023 4:32 PM SPRAY MIXER) Pathologist [facility] pH, Art 7.31(L) 7.35 - 7.45 [facility] PCO2, Arterial 45 35 - 45 mmHg [facility] PO2, Arterial 72(L) 83 - 108 mmHg [facility] HCO3 Art (Calculated) 23 20 - 30 mmol/L [facility] BE, art -4 mmol/L [facility] Comment: Interpretive Data No Reference Range Established Current Interpretive Data was last revised on 2017 O2 Sat Art (Calculated) 93(L) 94 - 98 % [facility] Blood 10/17/2023 4:32 PM SPRAY MIXER 10/17/2023 4:35 PM SPRAY MIXER Dawna Castellanos COORDINATOR OF HEALTH SERVICES LAB BLOOD ORDERABLES Ann Marie l Result Performing Organization Address City/[facility]/ZIP Co de Phone Number [facility] [address] Department [place] [address] * POCT glucose (10/17/2023 3:51 PM SPRAY MIXER) [facility] Glucose, POC 98 70 - 140 mg/dL [facility] Comment: For Glucose values <35 mg/dl when Hematocrit is >60 mg/dl,the test may not accurately detect significant hypoglycemia,and testing in the Laboratory should be considered if clinically indicated. Blood 10/17/2023 3:51 PM SPRAY MIXER 10/17/2023 3:51 PM SPRAY MIXER Jaqueline Valero MD LAB POCT ORDERABLES - APRIL CE Final Result Performing Organization Address [facility]/ZIP Co de Phone Number [facility] [address] Department [place] [address] * Prepare plasma: 1 Units Standard plasma (10/17/2023 3:32 PM SPRAY MIXER) Pathologist [facility] Product code [id number] Unit Number [id number] [facility] Product Blood Type APOS [facility] Dispense Status PRESUMED TRANSFUSED [facility] Blood (Blood, Venous) 10/17/2023 3:32 PM SPRAY MIXER Narrative [facility] - 10/17/2023 10:15 PM SPRAY MIXER Is this plasma order intended for a COVID-19 patient as convalescent plasma?->Standard plasma Special Requirements Needed?->No Date required:-20231017 FFP # of Units:-1-Units Reasons:-Active major bleeding with coagulopathy} Result [facility] Kirsten Burns MD BLOOD BANK PRODUCT ORDER ROVERTO Final Result Performing Organization Address [facility] de Phone Number [facility] [address] [place] [address] * Prepare RBC: 1 Units (10/17/2023 3:32 PM SPRAY MIXER) [facility] Product code [id number] Unit Number [id number] [facility] Product Blood Type APOS [facility] Dispense Status RETURNED [facility] Blood 10/17/2023 3:32 PM SPRAY MIXER Narrative [facility] - 10/19/2023 7:08 AM SPRAY MIXER Are special requirements needed? (All products are leukoreduced and CMV- safe)- >No Date required:-20231017 LRRBC # of Xikwl-1-Irkyc Reasons:-Hemorrhagic shock/Life-threatening bleeding} Result [facility] Kirsten Burns MD BLOOD BANK PRODUCT ORDER ROVERTO Final Result Performing Organization Address [facility] de Phone Number [facility] [address] [place] [address] * POCT glucose (10/17/2023 2:34 PM SPRAY MIXER) [facility] Glucose, POC 102 70 - 140 mg/dL [facility] Comment: For Glucose values <35 mg/dl when Hematocrit is >60 mg/dl,the test may not accurately detect significant hypoglycemia,and testing in the Laboratory should be considered if clinically indicated. Blood 10/17/2023 2:34 PM SPRAY MIXER 10/17/2023 2:34 PM SPRAY MIXER Result [facility] Jaqueline Valero MD LAB POCT ORDERABLES - APRIL CE Final Result Performing Organization Address [facility] de Phone Number [facility] [address] Department [place] [address] * XR Chest 1 View - Portable (10/17/2023 1:49 PM SPRAY MIXER) Anatomical Region Laterality Modality Body, Chest N/A Computed Radiogr aphy 10/17/2023 2:01 PM SPRAY MIXER Impressions 10/17/2023 2:01 PM SPRAY MIXER Comparison is made to two-view chest radiograph dated 10/16/2023. ??Endotracheal tube projects approximately 4.5 cm above the boni. ??Interval postoperative changes of median sternotomy with sternal wires, sternal plating, for aortic valve replacement. ??Right internal jugular central venous catheter overlies the superior vena cava. ??Cleburne-Daniel catheter tip projects over the main pulmonary artery. ??Left thoracostomy tube and mediastinal drain. ??Gastric tube courses caudally beneath left hemidiaphragm out of the [id number]. Lung volumes are small with minimal bibasilar atelectasis, left greater than right. ??Possible trace left pleural effusion. ??No pneumothorax. Electronically signed by: Tania Malone M.D. Narrative 10/17/2023 2:01 PM SPRAY MIXER EXAMINATION: 1 view chest radiograph Procedure Note Tania Malone MD - 10/17/2023 EXAMINATION: 1 view chest radiograph IMPRESSION: Comparison is made to two-view chest radiograph dated 10/16/2023. Endotracheal tube projects approximately 4.5 cm above the boni. Interval postoperative changes of median sternotomy with sternal wires, sternal plating, for aortic valve replacement. Right internal jugular central venous catheter overlies the superior vena cava. [place]-Daniel catheter tip projects over the main pulmonary artery. Left thoracostomy tube and mediastinal drain. Gastric tube courses caudally beneath left hemidiaphragm out of the [id number]. Lung volumes are small with minimal bibasilar atelectasis, left greater than right. Possible trace left pleural effusion. No pneumothorax. Electronically signed by: Tania Malone M.D. Dawna Castellanos COORDINATOR OF HEALTH SERVICES IMG XR PROCEDURES Final R esult * Critical Care (10/17/2023 1:44 PM SPRAY MIXER) Narrative Kirsten Burns MD - 10/17/2023 1:44 PM SPRAY MIXER Dawna Castellanos NP ? 10/17/2023 ??4:35 PM Critical Care Performed by: Dawna Castellanos NP Authorized by: Dawna Castellanos NP ?? CRITICAL CARE: ??Team: ??[facility] ??Shift: ??AM ??Level of Billing: ??Critical [...] plan with the ICU team and other medical/technology applications consultant staff, making frequent assessments and decisions [...] monitors, laboratory results, and imaging Dawna Castellanos COORDINATOR OF HEALTH SERVICES IN CLINIC/BEDSIDE ORDERAB LES Final Result * eGFR (10/17/2023 1:27 PM SPRAY MIXER) [facility] eGFR 5 mL/min/1. 73 m2 [facility] Comment: Interpretive Data Reference Interval Normal [...] last reviewed 2021. Blood 10/17/2023 1:27 PM SPRAY MIXER 10/17/2023 1:37 PM SPRAY MIXER Dawna Castellanos COORDINATOR OF HEALTH SERVICES LAB BLOOD ORDERABLES Ann Marie l Result Performing Organization Address [facility]/ZIP Co de Phone Number [facility] [address] [place] [address] * Fibrinogen (10/17/2023 1:27 PM SPRAY MIXER) Fibrinogen 393 170 - 400 mg/dL [facility] Blood 10/17/2023 1:27 PM SPRAY MIXER 10/17/2023 1:37 PM SPRAY MIXER Dawna Castellanos COORDINATOR OF HEALTH SERVICES LAB BLOOD ORDERABLES Ann Marie l Result [facility] [address] [place] [address] * Lactate (10/17/2023 1:27 PM SPRAY MIXER) Lactate 1.2 0.7 - 2.0 mmol/L [facility] Blood 10/17/2023 1:27 PM SPRAY MIXER 10/17/2023 1:33 PM SPRAY MIXER Dawna Castellanos COORDINATOR OF HEALTH SERVICES LAB BLOOD ORDERABLES Ann Marie l Result Performing Organization Address [facility] Co de Phone Number [facility] [address] [facility] [place] [address] * aPTT (10/17/2023 1:27 PM SPRAY MIXER) aPTT 37 28 - 38 sec [facility] Comment: Interpretive Data Heparin therapeutic range: 66.0 - 100.0 seconds. Range based on correlation with therapeutic heparin activity range of 0.3 - 0.7 Units/mL. Current interpretive data was last revised on 2023. Blood 10/17/2023 1:27 PM SPRAY MIXER 10/17/2023 1:37 PM SPRAY MIXER Dawna Bradshaw [facility] LAB BLOOD ORDERABLES Ann Marie l Result Performing Organization Address [facility] de Phone Number [facility] [address] [facility] [place] [address] * (ABNORMAL) Protime-INR (10/17/2023 1:27 PM SPRAY MIXER) PT 14.7(H) 10.3 - 13.7 sec [facility] INR 1.29(H) 0.90 - 1.20 [facility] Comment: Interpretive data Oral anticoagulant therapeutic ranges: Venous thromboembolism prophylaxis or treatment: 2.0-3.0 CARDIOLOGY Standard range: 2.0-3.0 High-intensity range: 2.5-3.5 Refer to indication-specific guidelines for appropriate target ranges for prosthetic heart valve replacement. Current interpretive data was last revised on 2019. Blood 10/17/2023 1:27 PM SPRAY MIXER 10/17/2023 1:37 PM SPRAY MIXER Dawna Bradshaw [facility] LAB BLOOD ORDERABLES Ann Marie l Result Performing Organization Address [facility] Co de Phone Number [facility] [address] [facility] [place] [address] * (ABNORMAL) CBC without differential (10/17/2023 1:27 PM SPRAY MIXER) Pathologist [facility] WBC 7.4 3.8 - 9.9 K/cumm [facility] Hgb 8.4(L) 13.0 - 17.5 g/dL [facility] Hct 26.0(L) 38.9 - 50.3 % [facility] Plt 167 150 - 400 K/cumm [facility] MPV 10.7 9.1 - 12.3 fL [facility] RBC 2.85(L) 4.30 - 5.80 M/cumm [facility] MCV 91.2 81.3 - 96.4 fL [facility] MCH 29.5 27.1 - 33.3 pg [facility] MCHC 32.3 32.3 - 35.7 g/dL [facility] RDW CV 15.4(H) 11.1 - 14.9 % [facility] RDW SD 49.8(H) 35.7 - 48.1 fL [facility] NRBC abs 0.06(H) 0.00 - 0.01 K/cumm [facility] Blood 10/17/2023 1:27 PM SPRAY MIXER 10/17/2023 1:37 PM SPRAY MIXER Dawna Castellanos COORDINATOR OF HEALTH SERVICES LAB BLOOD ORDERABLES Ann Marie kramer Result [facility] [address] Department [place] [address] * (ABNORMAL) Blood gas, arterial (10/17/2023 1:27 PM SPRAY MIXER) Pathologist [facility] pH, Art 7.36 7.35 - 7.45 [facility] PCO2, Arterial 42 35 - 45 mmHg [facility] PO2, Arterial 65(L) 83 - 108 mmHg [facility] HCO3 Art (Calculated) 24 20 - 30 mmol/L [facility] BE, art -2 mmol/L [facility] Comment: Interpretive Data No Reference Range Established Current Interpretive Data was last revised on 2017 O2 Sat Art (Calculated) 92(L) 94 - 98 % [facility] Blood 10/17/2023 1:27 PM SPRAY MIXER 10/17/2023 1:33 PM SPRAY MIXER Dwana Bradshaw Emanuel COORDINATOR OF HEALTH SERVICES LAB BLOOD ORDERABLES Ann Marie l Result Performing Organization Address [facility] Co de Phone Number [facility] [address] [facility] [place] [address] * Calcium, ionized (10/17/2023 1:27 PM SPRAY MIXER) [facility] Calcium, Ionized 4.51 4.50 - 5.10 mg/dL [facility] Blood 10/17/2023 1:27 PM SPRAY MIXER 10/17/2023 1:34 PM SPRAY MIXER Dawna Castellanos COORDINATOR OF HEALTH SERVICES LAB BLOOD ORDERABLES Ann Marie l Result Performing Organization Address [facility] Co de Phone Number [facility] [address] [place] [address] * Magnesium (10/17/2023 1:27 PM SPRAY MIXER) [facility] Magnesium 2.3 1.4 - 2.5 mg/dL [facility] Blood 10/17/2023 1:27 PM SPRAY MIXER 10/17/2023 1:37 PM SPRAY MIXER Dawna Mcginnisisaias Castellanos COORDINATOR OF HEALTH SERVICES LAB BLOOD ORDERABLES Ann Marie l Result Performing Organization Address [facility] Co de Phone Number [facility] [address] [facility] [place] [address] * (ABNORMAL) Basic metabolic panel (10/17/2023 1:27 PM SPRAY MIXER) [facility] Sodium 139 135 - 145 mmol/L [facility] Potassium, pl 3.8 3.3 - 4.9 mmol/L [facility] Chloride 98 97 - 110 mmol/L [facility] CO2 23 22 - 32 mmol/L [facility] Anion gap 18(H) 2 - 15 mmol/L [facility] BUN 75(H) 6 - 25 mg/dL [facility] Creatinine 10.43(H) 0.80 - 1.30 mg/dL [facility] Glucose 119 70 - 199 mg/dL [facility] Comment: Interpretive Data Fasting glucose >/= [...] 2022. Calcium 8.9 8.5 - 10.3 mg/dL [facility] Blood 10/17/2023 1:2 7 PM SPRAY MIXER 10/17/2023 1:37 PM SPRAY MIXER Dawna Castellanos COORDINATOR OF HEALTH SERVICES LAB BLOOD ORDERABLES Ann Marie l Result [facility] [address] [employer] [place], [place] [id number] * (ABNORMAL) Phosphorus (10/17/2023 1:27 PM SPRAY MIXER) Phosphorus, pl 6.1(H) 2.3 - 4.5 mg/dL [facility] Blood 10/17/2023 1:27 PM SPRAY MIXER 10/17/2023 1:37 PM SPRAY MIXER Dawna Castellanos COORDINATOR OF HEALTH SERVICES LAB BLOOD ORDERABLES Ann Marie l Result [facility] [address] [facility] [place] [address] * POCT glucose (10/17/2023 1:25 PM SPRAY MIXER) Glucose, POC 137 70 - 140 mg/dL [facility] Comment: For Glucose values <35 mg/dl when Hematocrit is >60 mg/dl,the test may not accurately detect significant hypoglycemia,and testing in the Laboratory should be considered if clinically indicated. Blood 10/17/2023 1:25 PM SPRAY MIXER 10/17/2023 1:25 PM SPRAY MIXER Jovani Kat DO LAB POCT ORDERABLES - DE VICE Final Result Performing Organization Address City/[facility]/ZIP Co de Phone Number [facility] [address] [place] [address] * POC Activated Clotting Time, High Range (10/17/2023 12:26 PM SPRAY MIXER) [facility] ACT 104 87 - 138 sec [facility] Blood 10/17/2023 12:2 6 PM SPRAY MIXER 10/17/2023 12:26 PM SPRAY MIXER Jaqueline Valero MD LAB BLOOD ORDERABLES Final Result Performing Organization Address [facility]/ZIP Co de Phone Number [facility] [address] [place] [address] * (ABNORMAL) POC Blood Gas and Chemistries, Arterial - (10/17/2023 12:26 PM SPRAY MIXER) [facility] pH, Art POC 7.31(L) 7.35 - 7.45 [facility] pCO2, Art POC 48(H) 35 - 45 mmHg [facility] pO2, Art POC 112(H) 80 - 108 mmHg [facility] Na, POC 134(L) 135 - 145 mmol/L [facility] K POC 4.0 3.3 - 4.9 mmol/L [facility] Comment: Interpretive Data This method is not able to assess for hemolysis, which may falsely increase potassium concentrations. If further testing is needed to evaluate this result, consider in-laboratory plasma potassium. Current Interpretive Data was last revised on 2022. Cl, POC 97 97 - 110 mmol/L [facility] Ionized Ca, POC 4.80 4.50 - 5.10 mg/dL [facility] Glucose, POC 147 70 - 199 mg/dL [facility] Lactate, POC 2.9(H) 0.0 - 2.0 mmol/L [facility] O2Hb, Art POC 96.7(H) 90.0 - 95.0 % [facility] Carboxhgb fract 0.8 0.0 - 2.9 % [facility] Methemoglobin 0.6 0.0 - 1.9 % [facility] HHb, POC 1.9 0.0 - 5.0 % [facility] SO2 (oren) arterial 98(H) 90 - 95 % [facility] Total CO2, Art POC 26 22 - 32 mmol/L [facility] BE, art, POC -2.1(L) -2.0 - 2.0 mmol/L [facility] HCO3, Art POC 23 20 - 30 mmol/L [facility] Hct, POC 24.0(L) 38.9 - 50.3 % [facility] Total Hb, POC 8.1(L) 13.0 - 17.5 g/dL [facility] Blood 10/17/2023 12:2 6 PM SPRAY MIXER 10/17/2023 12:26 PM SPRAY MIXER Jovani Kat DO LAB POCT ORDERABLES - DE VICE Final Result Performing Organization Address [facility]/ZIP Co de Phone Number [facility] [address] [facility] [place] [address] * Transfuse platelets (10/17/2023 12:24 PM SPRAY MIXER) Blood Ayden Alan MD BLOOD TRANSFUSION ORDERABLES F inal Result [facility] [address] [place] [address] * Transfuse RBC (10/17/2023 12:11 PM SPRAY MIXER) Blood us Ayden Alan MD BLOOD TRANSFUSION ORDERABLES F inal Result Performing Organization Address [facility] Co de Phone Number [facility] [address] [facility] [employer] [place], [place] [id number] * Prepare RBC: 2 Units (10/17/2023 12:11 PM SPRAY MIXER) Product code [id number] Unit Number [id number] [facility] Product Blood Type APOS [facility] Dispense Status PRESUMED TRANSFUSED [facility] Product code [id number] [facility] Unit Number [id number] Z [facility] Product Blood Type APOS [facility] Dispense Status PRESUMED TRANSFUSED [facility] Blood 10/17/2023 12:1 1 PM SPRAY MIXER Narrative [facility] - 10/18/2023 10:15 PM SPRAY MIXER Are special requirements needed? (All products are leukoreduced and CMV- safe)- >No Date required:-[id number] LRRBC # of Ocivc-4-Gccra Reasons:-Intra-op transfusion} Jaqueline Valero MD BLOOD BANK PRODUCT ORDERAB LES Final Result Performing Organization Address [facility] Co de Phone Number [facility] [address] Department [employer] [place], [place] [phone] * Transfuse cryoprecipitate (pooled units) (10/17/2023 12:05 PM SPRAY MIXER) Blood Ayden Alan MD BLOOD TRANSFUSION ORDERABLES F inal Result Performing Organization Address [facility] Co de Phone Number [facility] [address] [facility] [place], [place] [phone] * Transfuse cryoprecipitate (pooled units) (10/17/2023 12:05 PM SPRAY MIXER) Blood us Ayden Alan MD BLOOD TRANSFUSION ORDERABLES F inal Result Performing Organization Address [facility] Co de Phone Number [facility] [address] [facility] [place] [address] * Transfuse plasma (10/17/2023 12:04 PM SPRAY MIXER) Blood us Ayden Alan MD BLOOD TRANSFUSION ORDERABLES F inal Result [facility] [address] [place] [address] * Transfuse plasma (10/17/2023 12:04 PM SPRAY MIXER) Blood us Ayden Alan MD BLOOD TRANSFUSION ORDERABLES F inal Result Performing Organization Address City/[facility]/ZIP Co de Phone Number [facility] [address] [place] [address] * (ABNORMAL) POC Blood Gas and Chemistries, Arterial - (10/17/2023 11:51 AM SPRAY MIXER) Pathologist [facility] pH, Art POC 7.36 7.35 - 7.45 [facility] pCO2, Art POC 39 35 - 45 mmHg [facility] pO2, Art POC 407(H) 80 - 108 mmHg [facility] Na, POC 131(L) 135 - 145 mmol/L [facility] K POC 5.5(H) 3.3 - 4.9 mmol/L [facility] Comment: Interpretive Data This method is not able to assess for hemolysis, which may falsely increase potassium concentrations. If further testing is needed to evaluate this result, consider in-laboratory plasma potassium. Current Interpretive Data was last revised on 2022. Cl, POC 97 97 - 110 mmol/L [facility] Ionized Ca, POC 3.99(L) 4.50 - 5.10 mg/dL [facility] Glucose, POC 115 70 - 199 mg/dL [facility] Lactate, POC 2.8(H) 0.0 - 2.0 mmol/L [facility] O2Hb, Art POC 97.2(H) 90.0 - 95.0 % [facility] Carboxhgb fract 0.0 0.0 - 2.9 % [facility] Methemoglobin 0.9 0.0 - 1.9 % [facility] HHb, POC 1.9 0.0 - 5.0 % [facility] SO2 (oren) arterial 98(H) 90 - 95 % [facility] Total CO2, Art POC 23 22 - 32 mmol/L [facility] BE, art, POC -3.2(L) -2.0 - 2.0 mmol/L [facility] HCO3, Art POC 22 20 - 30 mmol/L [facility] Hct, POC 24.0(L) 38.9 - 50.3 % [facility] Total Hb, POC 7.9(L) 13.0 - 17.5 g/dL [facility] Blood 10/17/2023 11:5 1 AM SPRAY MIXER 10/17/2023 11:51 AM SPRAY MIXER us Jovani Kat DO LAB POCT ORDERABLES - DE VICE Final Result [facility] [address] Department [employer] [place], [place] [id number] * (ABNORMAL) POC Activated Clotting Time, High Range (10/17/2023 11:50 AM SPRAY MIXER) ACT 507(H) 87 - 138 sec [facility] Blood 10/17/2023 11:5 0 AM SPRAY MIXER 10/17/2023 11:50 AM SPRAY MIXER Jaqueline Valero MD LAB BLOOD ORDERABLES Final Result [facility] [address] Department [employer] [place], [place] [phone] * (ABNORMAL) POC Activated Clotting Time, High Range (10/17/2023 11:22 AM SPRAY MIXER) ACT 582(H) 87 - 138 sec [facility] Blood 10/17/2023 11:2 2 AM SPRAY MIXER 10/17/2023 11:22 AM SPRAY MIXER us Jaqueline Valero MD LAB BLOOD ORDERABLES Final Result [facility] [address] Department [place] [address] * (ABNORMAL) POC Blood Gas and Chemistries, Arterial - (10/17/2023 11:20 AM SPRAY MIXER) pH, Art POC 7.32(L) 7.35 - 7.45 [facility] pCO2, Art POC 41 35 - 45 mmHg [facility] pO2, Art POC 362(H) 80 - 108 mmHg [facility] Na, POC 130(L) 135 - 145 mmol/L [facility] K POC 4.5 3.3 - 4.9 mmol/L [facility] Comment: Interpretive Data This method is not able to assess for hemolysis, which may falsely increase potassium concentrations. If further testing is needed to evaluate this result, consider in-laboratory plasma potassium. Current Interpretive Data was last revised on 2022. Cl, POC 97 97 - 110 mmol/L [facility] Ionized Ca, POC 4.19(L) 4.50 - 5.10 mg/dL [facility] Glucose, POC 133 70 - 199 mg/dL [facility] Lactate, POC 2.1(H) 0.0 - 2.0 mmol/L [facility] O2Hb, Art POC 97.8(H) 90.0 - 95.0 % [facility] Carboxhgb fract 0.1 0.0 - 2.9 % [facility] Methemoglobin 0.5 0.0 - 1.9 % [facility] HHb, POC 1.6 0.0 - 5.0 % [facility] SO2 (oren) arterial 98(H) 90 - 95 % [facility] Total CO2, Art POC 22 22 - 32 mmol/L [facility] BE, art, POC -4.7(L) -2.0 - 2.0 mmol/L [facility] HCO3, Art POC 21 20 - 30 mmol/L [facility] Hct, POC 25.0(L) 38.9 - 50.3 % [facility] Total Hb, POC 8.2(L) 13.0 - 17.5 g/dL [facility] Blood 10/17/2023 11:2 0 AM [employer] [facility] 10/17/2023 11:20 AM SPRAY MIXER Jovani Kat DO LAB POCT ORDERABLES - DE VICE Final Result Performing Organization Address [facility] Co de Phone Number [facility] [address] [facility] [place] [address] * (ABNORMAL) POC Activated Clotting Time, High Range (10/17/2023 11:05 AM SPRAY MIXER) ACT 533(H) 87 - 138 sec [facility] Blood 10/17/2023 11:0 5 AM SPRAY MIXER 10/17/2023 11:05 AM SPRAY MIXER us Jaqueline Valero MD LAB BLOOD ORDERABLES Final Result Performing Organization Address [facility] Co de Phone Number [facility] [address] [facility] [place] [address] * (ABNORMAL) POC Activated Clotting Time, High Range (10/17/2023 10:53 AM SPRAY MIXER) ACT 494(H) 87 - 138 sec [facility] Blood 10/17/2023 10:5 3 AM SPRAY MIXER 10/17/2023 10:53 AM SPRAY MIXER Jaqueline Valero MD LAB BLOOD ORDERABLES Final Result Performing Organization Address [facility] Co de Phone Number [facility] [address] [facility] [place] [address] * (ABNORMAL) POC Activated Clotting Time, High Range (10/17/2023 10:38 AM SPRAY MIXER) ACT 583(H) 87 - 138 sec [facility] Blood 10/17/2023 10:3 8 AM SPRAY MIXER 10/17/2023 10:38 AM SPRAY MIXER us Jaqueline Valero MD LAB BLOOD ORDERABLES Final Result [facility] [address] Department [place] [address] * (ABNORMAL) POC Blood Gas and Chemistries, Arterial - (10/17/2023 10:38 AM SPRAY MIXER) pH, Art POC 7.34(L) 7.35 - 7.45 [facility] pCO2, Art POC 42 35 - 45 mmHg [facility] pO2, Art POC 357(H) 80 - 108 mmHg [facility] Na, POC 132(L) 135 - 145 mmol/L [facility] K POC 4.7 3.3 - 4.9 mmol/L [facility] Comment: Interpretive Data This method is not able to assess for hemolysis, which may falsely increase potassium concentrations. If further testing is needed to evaluate this result, consider in-laboratory plasma potassium. Current Interpretive Data was last revised on 2022. Cl, POC 96(L) 97 - 110 mmol/L [facility] Ionized Ca, POC 4.18(L) 4.50 - 5.10 mg/dL [facility] Glucose, POC 170 70 - 199 mg/dL [facility] Lactate, POC 1.8 0.0 - 2.0 mmol/L [facility] O2Hb, Art POC 97.7(H) 90.0 - 95.0 % [facility] Carboxhgb fract 0.0 0.0 - 2.9 % [facility] Methemoglobin 0.7 0.0 - 1.9 % [facility] HHb, POC 1.5 0.0 - 5.0 % [facility] SO2 (oren) arterial 98(H) 90 - 95 % [facility] Total CO2, Art POC 24 22 - 32 mmol/L [facility] BE, art, POC -2.9(L) -2.0 - 2.0 mmol/L [facility] HCO3, Art POC 23 20 - 30 mmol/L [facility] Hct, POC 24.0(L) 38.9 - 50.3 % [facility] Total Hb, POC 8.0(L) 13.0 - 17.5 g/dL [facility] Blood 10/17/2023 10:3 8 AM SPRAY MIXER 10/17/2023 10:38 AM SPRAY MIXER Jovani Kat DO LAB POCT ORDERABLES - DE VICE Final Result Performing Organization Address City/[facility]/ZIP Co de Phone Number [facility] [address] Department of Laboratories [place], [place] [phone] * (ABNORMAL) POC Activated Clotting Time, High Range (10/17/2023 10:24 AM SPRAY MIXER) ACT 505(H) 87 - 138 sec [facility] Blood 10/17/2023 10:2 4 AM SPRAY MIXER 10/17/2023 10:24 AM SPRAY MIXER us Jaqueline Valero MD LAB BLOOD ORDERABLES Final Result Performing Organization Address City/[facility]/ZIP Co de Phone Number [facility] [address] [place] [address] * (ABNORMAL) POC Blood Gas and Chemistries, Venous - (10/17/2023 10:21 AM SPRAY MIXER) pH, Juice POC 7.27(L) 7.32 - 7.45 [facility] pCO2, jucie POC 53(H) 40 - 50 mmHg [facility] pO2, juice POC 43(H) 35 - 42 mmHg [facility] Na, POC 133(L) 135 - 145 mmol/L [facility] K POC 4.9 3.3 - 4.9 mmol/L [facility] Comment: Interpretive Data This method is not able to assess for hemolysis, which may falsely increase potassium concentrations. If further testing is needed to evaluate this result, consider in-laboratory plasma potassium. Current Interpretive Data was last revised on 2022. Cl, POC 95(L) 97 - 110 mmol/L [facility] Ionized Ca, POC 4.19(L) 4.50 - 5.10 mg/dL [facility] Glucose, POC 182 70 - 199 mg/dL [facility] Lactate, POC 1.5 0.0 - 2.0 mmol/L [facility] O2Hb, Juice POC 67.4(L) 90.0 - 95.0 % [facility] Carboxhgb fract 0.8 0.0 - 2.9 % [facility] Methemoglobin 0.7 0.0 - 1.9 % [facility] HHb, POC 31.0(H) 0.0 - 5.0 % [facility] O2 Sat, Juice POC (Oren) 68 68 - 77 % [facility] Total CO2, juice POC 26 22 - 32 mmol/L [facility] Base excess, juice POC -2.6 mmol/L [facility] HCO3, Juice POC 22 20 - 30 mmol/L [facility] Hct, POC 23.0(L) 38.9 - 50.3 % [facility] Total Hb, POC 7.6(L) 13.0 - 17.5 g/dL [facility] Blood 10/17/2023 10:2 1 AM SPRAY MIXER 10/17/2023 10:21 AM SPRAY MIXER us Jovani Kat DO LAB POCT ORDERABLES - DE VICE Final Result Performing Organization Address City/[facility]/ZIP Co de Phone Number [facility] [address] Department [place] [address] * (ABNORMAL) POC Activated Clotting Time, High Range (10/17/2023 10:12 AM SPRAY MIXER) ACT 467(H) 87 - 138 sec [facility] Blood 10/17/2023 10:1 2 AM SPRAY MIXER 10/17/2023 10:12 AM SPRAY MIXER us Jaqueline Valero MD LAB BLOOD ORDERABLES Final Result [facility] [address] Department [place] [address] * (ABNORMAL) POC Blood Gas and Chemistries, Arterial - (10/17/2023 10:11 AM SPRAY MIXER) pH, Art POC 7.25(L) 7.35 - 7.45 [facility] pCO2, Art POC 40 35 - 45 mmHg [facility] pO2, Art POC 400(H) 80 - 108 mmHg [facility] Na, POC 129(L) 135 - 145 mmol/L [facility] K POC 4.6 3.3 - 4.9 mmol/L [facility] Comment: Interpretive Data This method is not able to assess for hemolysis, which may falsely increase potassium concentrations. If further testing is needed to evaluate this result, consider in-laboratory plasma potassium. Current Interpretive Data was last revised on 2022. Cl, POC 96(L) 97 - 110 mmol/L [facility] Ionized Ca, POC 4.08(L) 4.50 - 5.10 mg/dL [facility] Glucose, POC 182 70 - 199 mg/dL [facility] Lactate, POC 1.3 0.0 - 2.0 mmol/L [facility] O2Hb, Art POC 98.1(H) 90.0 - 95.0 % [facility] Carboxhgb fract 0.3 0.0 - 2.9 % [facility] Methemoglobin 0.6 0.0 - 1.9 % [facility] HHb, POC 0.9 0.0 - 5.0 % [facility] SO2 (oren) arterial 99(H) 90 - 95 % [facility] Total CO2, Art POC 19(L) 22 - 32 mmol/L [facility] BE, art, POC -9.0(L) -2.0 - 2.0 mmol/L [facility] HCO3, Art POC 18(L) 20 - 30 mmol/L [facility] Hct, POC 22.0(L) 38.9 - 50.3 % [facility] Total Hb, POC 7.4(L) 13.0 - 17.5 g/dL [facility] Blood 10/17/2023 10:1 1 AM SPRAY MIXER 10/17/2023 10:11 AM SPRAY MIXER us Jovani Kat DO LAB POCT ORDERABLES - DE VICE Final Result [facility] [address] Department [place] [address] * (ABNORMAL) POC Blood Gas and Chemistries, Arterial - (10/17/2023 9:47 AM SPRAY MIXER) [facility] pH, Art POC 7.30(L) 7.35 - 7.45 [facility] pCO2, Art POC 40 35 - 45 mmHg [facility] pO2, Art POC 65(L) 80 - 108 mmHg [facility] Na, POC 130(L) 135 - 145 mmol/L [facility] K POC 4.3 3.3 - 4.9 mmol/L [facility] Comment: Interpretive Data This method is not able to assess for hemolysis, which may falsely increase potassium concentrations. If further testing is needed to evaluate this result, consider in-laboratory plasma potassium. Current Interpretive Data was last revised on 2022. Cl, POC 97 97 - 110 mmol/L [facility] Ionized Ca, POC 4.39(L) 4.50 - 5.10 mg/dL [facility] Glucose, POC 202(H) 70 - 199 mg/dL [facility] Lactate, POC 1.1 0.0 - 2.0 mmol/L [facility] O2Hb, Art POC 90.8 90.0 - 95.0 % [facility] Carboxhgb fract 0.7 0.0 - 2.9 % [facility] Methemoglobin 0.0 0.0 - 1.9 % [facility] HHb, POC 8.5(H) 0.0 - 5.0 % [facility] SO2 (oren) arterial 91 90 - 95 % [facility] Total CO2, Art POC 21(L) 22 - 32 mmol/L [facility] BE, art, POC -6.2(L) -2.0 - 2.0 mmol/L [facility] HCO3, Art POC 20 20 - 30 mmol/L [facility] Hct, POC 26.0(L) 38.9 - 50.3 % [facility] Total Hb, POC 8.6(L) 13.0 - 17.5 g/dL [facility] Blood 10/17/2023 9:47 AM SPRAY MIXER 10/17/2023 9:47 AM SPRAY MIXER us Jovani Kat DO LAB POCT ORDERABLES - DE VICE Final Result Performing Organization Address City/[facility]/ZIP Co de Phone Number [facility] [address] Department of [place] [place], [place] [phone] * (ABNORMAL) POC Activated Clotting Time, High Range (10/17/2023 9:44 AM SPRAY MIXER) ACT 428(H) 87 - 138 sec [facility] Blood 10/17/2023 9:44 AM SPRAY MIXER 10/17/2023 9:44 AM SPRAY MIXER us Jaqueline Valero MD LAB BLOOD ORDERABLES Final Result Performing Organization Address City/[facility]/ZIP Co de Phone Number [facility] [address] [facility] [place] [address] * Prepare cryoprecipitate (pooled units): 2 Units (10/17/2023 9:12 AM SPRAY MIXER) Product code [id number] Unit Number [id number]- M [facility] Product Blood Type OPOS [facility] Dispense Status PRESUMED TRANSFUSED [facility] Product code D1290D59 [facility] Unit Number [id number]- I [facility] Product Blood Type OPOS [facility] Dispense Status PRESUMED TRANSFUSED [facility] Blood (Blood, Venous) 10/17/2023 9:12 AM SPRAY MIXER Narrative [facility] - 10/17/2023 10:15 PM SPRAY MIXER Other indication->CTOR Cryo # of [id number] Reasons:-Other (Specify)} Ayden Alan MD BLOOD BANK PRODUCT ORDERABLES Final Result Performing Organization Address [facility] Co de Phone Number [facility] [address] [facility] [place] [address] * Prepare plasma: 2 Units (10/17/2023 9:12 AM SPRAY MIXER) Product code [id number] [facility] Unit Number [id number]- Y [facility] Product Blood Type APOS [facility] Dispense Status PRESUMED TRANSFUSED [facility] Product code [id number] Unit Number [id number]- N [facility] Product Blood Type ANEG [facility] Dispense Status PRESUMED TRANSFUSED [facility] Blood (Blood, Venous) 10/17/2023 9:12 AM SPRAY MIXER Narrative [facility] - 10/17/2023 10:15 PM SPRAY MIXER Other indication->CTOR Date required:-20231017 FFP # of Units:-2-Units Reasons:-Other (Specify)} Ayden Alan MD BLOOD BANK PRODUCT ORDERABLES Final Result Performing Organization Address [facility] de Phone Number [facility] [address] [facility] [place] [address] * Prepare platelets: 1 Units (10/17/2023 9:12 AM SPRAY MIXER) Product code C0244B84 Unit Number [id number]- A [facility] Product Blood Type BPOS [facility] Dispense Status PRESUMED TRANSFUSED [facility] Blood (Blood, Venous) 10/17/2023 9:12 AM SPRAY MIXER Narrative [facility] - 10/17/2023 10:15 PM SPRAY MIXER Other indication->CTOR Are special requirements needed? (all products are leukoreduced)->No Date required:-20231017 PLT # of Units:-1-Units Reasons:-Other (Specify)} Ayden Alan MD BLOOD BANK PRODUCT ORDERABLES Final Result Performing Organization Address [facility] Co de Phone Number [facility] [address] [facility] [place] [address] * POC Activated Clotting Time, High Range (10/17/2023 8:19 AM SPRAY MIXER) [facility] ACT 97 87 - 138 sec [facility] Blood 10/17/2023 8:19 AM SPRAY MIXER 10/17/2023 8:19 AM SPRAY MIXER us Jaqueline Valero MD LAB BLOOD ORDERABLES Final Result Performing Organization Address [facility] Co de Phone Number [facility] [address] [facility] [place] [address] * (ABNORMAL) POCT glucose (10/17/2023 7:47 AM SPRAY MIXER) [facility] Glucose, POC 279(H) 70 - 140 mg/dL [facility] Comment: For Glucose values <35 mg/dl when Hematocrit is >60 mg/dl,the test may not accurately detect significant hypoglycemia,and testing in the Laboratory should be considered if clinically indicated. Blood 10/17/2023 7:47 AM SPRAY MIXER 10/17/2023 7:47 AM SPRAY MIXER us Jovani Kat DO LAB POCT ORDERABLES - DE VICE Final Result Performing Organization Address [facility] Co de Phone Number [facility] [address] [place] [address] * (ABNORMAL) POCT glucose (10/17/2023 5:50 AM SPRAY MIXER) [facility] Glucose, POC 307(H) 70 - 140 mg/dL [facility] Comment: For Glucose values <35 mg/dl when Hematocrit is >60 mg/dl,the test may not accurately detect significant hypoglycemia,and testing in the Laboratory should be considered if clinically indicated. Blood 10/17/2023 5:50 AM SPRAY MIXER 10/17/2023 5:50 AM SPRAY MIXER us Frank Cody MD LAB POCT ORDERABLES - DEVICE Fin al Result [facility] [address] Department [place] [address] * US Carotids (10/17/2023 5:10 AM SPRAY MIXER) Anatomical Region Laterality Modality Vascular Bilateral Ultrasound 10/17/2023 1:01 PM SPRAY MIXER Impressions 10/17/2023 1:01 PM SPRAY MIXER 1) ??Plaquing of the right internal carotid [...] Ana Pastor MD Narrative 10/17/2023 1:01 PM SPRAY MIXER DATE:10/17/2023 4:30 AM EXAM: Duplex imaging of [...] * (ABNORMAL) POCT glucose (10/17/2023 2:29 AM SPRAY MIXER) Glucose, POC 288(H) 70 - 140 mg/dL [facility] Comment: For Glucose values <35 mg/dl when Hematocrit is >60 mg/dl,the test may not accurately detect significant hypoglycemia,and testing in the Laboratory should be considered if clinically indicated. Blood 10/17/2023 2:29 AM SPRAY MIXER 10/17/2023 2:29 AM SPRAY MIXER Frank Cody MD LAB POCT ORDERABLES - DEVICE Fin al Result Performing Organization Address [facility] Co de Phone Number [facility] [address] Department [employer] [place], [place] [id number] * (ABNORMAL) POCT glucose (10/17/2023 12:51 AM SPRAY MIXER) Glucose, POC 242(H) 70 - 140 mg/dL [facility] Comment: For Glucose values <35 mg/dl when Hematocrit is >60 mg/dl,the test may not accurately detect significant hypoglycemia,and testing in the Laboratory should be considered if clinically indicated. Blood 10/17/2023 12:5 1 AM SPRAY MIXER 10/17/2023 12:51 AM SPRAY MIXER Frank Cody MD LAB POCT ORDERABLES - DEVICE Fin al Result Performing Organization Address City/[facility]/ZIP Co de Phone Number [facility] [address] Department of [address] [place], [place] [id number] * (ABNORMAL) Differential, auto (10/17/2023 12:29 AM SPRAY MIXER) Neutrophil abs 6.4 1.5 - 6.5 K/cumm [facility] Imm gran abs 0.2(H) 0.0 - 0.1 K/cumm [facility] Lymphocyte abs 1.6 0.8 - 3.3 K/cumm [facility] Monocyte abs 1.1(H) 0.2 - 0.8 K/cumm [facility] Eosinophil abs 0.3 0.0 - 0.5 K/cumm [facility] Basophil abs 0.0 0.0 - 0.1 K/cumm [facility] Neutrophil pct 66.0 % [facility] Comment: Interpretive Data Percent cell count reference ranges are not reported, since discordance with absolute values may lead to misinterpretation of CBC data. Current Interpretive Data was last revised on 2017. Imm gran pct 2.1 % [facility] Comment: Interpretive Data Percent cell count reference ranges are not reported, since discordance with absolute values may lead to misinterpretation of CBC data. Current Interpretive Data was last revised on 2017. Lymphocyte pct 16.8 % [facility] Comment: Interpretive Data Percent cell count reference ranges are not reported, since discordance with absolute values may lead to misinterpretation of CBC data. Current Interpretive Data was last revised on 2017. Monocyte pct 11.6 % [facility] Comment: Interpretive Data Percent cell count reference ranges are not reported, since discordance with absolute values may lead to misinterpretation of CBC data. Current Interpretive Data was last revised on 2017. Eosinophil pct 3.1 % [facility] Comment: Interpretive Data Percent cell count reference ranges are not reported, since discordance with absolute values may lead to misinterpretation of CBC data. Current Interpretive Data was last revised on 2017. Basophil pct 0.4 % [facility] Comment: Interpretive Data Percent cell count reference ranges are not reported, since discordance with absolute values may lead to misinterpretation of CBC data. Current Interpretive Data was last revised on 2017. Blood 10/17/2023 12:2 9 AM SPRAY MIXER 10/17/2023 12:42 AM SPRAY MIXER us Vinay Pratt DO LAB BLOOD ORDERABLES F inal Result [facility] [address] Department [place] [address] * (ABNORMAL) aPTT (10/17/2023 12:29 AM SPRAY MIXER) [facility] aPTT 92(H) 28 - 38 sec [facility] Comment: Interpretive Data Heparin therapeutic range: 66.0 - 100.0 seconds. Range based on correlation with therapeutic heparin activity range of 0.3 - 0.7 Units/mL. Current interpretive data was last revised on 2023. Blood 10/17/2023 12:2 9 AM SPRAY MIXER 10/17/2023 12:43 AM SPRAY MIXER Frank Cody MD LAB BLOOD ORDERABLES Final Resul t [facility] [address] Department [place] [address] * (ABNORMAL) CBC with auto differential (10/17/2023 12:29 AM SPRAY MIXER) [facility] WBC 9.7 3.8 - 9.9 K/cumm [facility] Hgb 9.0(L) 13.0 - 17.5 g/dL [facility] Hct 27.4(L) 38.9 - 50.3 % [facility] Plt 289 150 - 400 K/cumm [facility] MPV 10.7 9.1 - 12.3 fL [facility] RBC 3.04(L) 4.30 - 5.80 M/cumm [facility] MCV 90.1 81.3 - 96.4 fL [facility] MCH 29.6 27.1 - 33.3 pg [facility] MCHC 32.8 32.3 - 35.7 g/dL [facility] RDW CV 14.7 11.1 - 14.9 % [facility] RDW SD 46.4 35.7 - 48.1 fL [facility] NRBC abs 0.03(H) 0.00 - 0.01 K/cumm [facility] Blood 10/17/2023 12:2 9 AM SPRAY MIXER 10/17/2023 12:42 AM SPRAY MIXER Vinay Pratt DO LAB BLOOD ORDERABLES F inal Result Performing Organization Address [facility] Co de Phone Number [facility] [address] Department of Laboratories [place], [place] [phone] * Type and screen (10/16/2023 7:51 PM SPRAY MIXER) Maribel, indirect Negative ABO Rh A Positive [facility] Blood 10/16/2023 7:51 PM SPRAY MIXER 10/16/2023 8:09 PM SPRAY MIXER Result [facility] Frank Cody MD LAB BLOOD BANK TEST ORDERABLES F inal Result Performing Organization Address [facility] de Phone Number [facility] [address] [place] [address] * POCT glucose (10/16/2023 7:49 PM SPRAY MIXER) Glucose, POC 114 70 - 140 mg/dL [facility] Comment: For Glucose values <35 mg/dl when Hematocrit is >60 mg/dl,the test may not accurately detect significant hypoglycemia,and testing in the Laboratory should be considered if clinically indicated. Blood 10/16/2023 7:49 PM SPRAY MIXER 10/16/2023 7:49 PM SPRAY MIXER Frank Cody MD LAB POCT ORDERABLES - DEVICE Fin al Result Performing Organization Address [facility] de Phone Number [facility] [address] Department [place] [address] * POCT glucose (10/16/2023 5:35 PM SPRAY MIXER) Glucose, POC 76 70 - 140 mg/dL [facility] Comment: For Glucose values <35 mg/dl when Hematocrit is >60 mg/dl,the test may not accurately detect significant hypoglycemia,and testing in the Laboratory should be considered if clinically indicated. Blood 10/16/2023 5:3 5 PM SPRAY MIXER 10/16/2023 5:35 PM SPRAY MIXER us Frank Cody MD LAB POCT ORDERABLES - DEVICE Fin al Result [facility] [address] Department [place] [address] * TRANSTHORACIC ECHO (TTE) COMPLETE W DOPPLER/CF W CONTRAST (10/16/2023 4:47 PM SPRAY MIXER) Anatomical Region Laterality Modality Ultrasound 10/16/2023 11:3 9 AM SPRAY MIXER Narrative 10/16/2023 5:02 PM SPRAY MIXER [facility] [address] [place] [address] ECHOCARDIOGRAM Patient Name: JUVENAL GARVIN C : 1970 Study Date: 10/16/2023 11:39:54 AM Gender: M Tech: Location: [id number] Ref Provider: GUERLINE RODRIGUEZ ?Height(Cm): 178 BSA: 2.5 Weight(Kg): 126.1 BP: 125/75 ?Order Provider: GUERLINE RODRIGUEZ - PROCEDURES: Echocardiographic Report: Transthoracic Echocardiogram with 2D, M-Mode, Spectral and Color Flow Doppler examination and administration of intravenous contrast. INDICATIONS: Coronary artery disease, tangirnaq vessel. Measurements: 2D/M Mode ? Doppler Measurement [...] regurgitation. Electronically Signed By: Dimitrios Ames MD, [facility] 2023-10-16 17:01:58 SPRAY MIXER Procedure Note Dimitrios Ames MD - 10/16/2023 [facility] [address] [place] [address] ECHOCARDIOGRAM Patient Name: JUVENAL GARVIN C : 1970 Study Date: 10/16/2023 11:39:54 AM Gender: M Tech: Location: [id number] Ref Provider: GUERLINE RODRIGUEZ Height(Cm): 178 BSA: 2.5 Weight(Kg): 126.1 BP: 125/75 Order Provider: GUERLINE RODRIGUEZ - PROCEDURES: Echocardiographic Report: Transthoracic Echocardiogram with 2D, M-Mode, Spectral and Color FlowDoppler examination and administration of intravenous contrast. INDICATIONS: Coronary artery disease, tangirnaq vessel. Measurements: 2D/M ModeDoppler Measurement Value Normal [...] tricuspidregurgitation. Electronically Signed By: Dimitrios Ames MD, [facility] 2023-10-16 17:01:58 SPRAY MIXER us Guerline GRACE CV ECHO PROCEDURES Final Res ult * (ABNORMAL) aPTT (10/16/2023 3:50 PM SPRAY MIXER) aPTT 73(H) 28 - 38 sec [facility] Comment: Interpretive Data Heparin therapeutic range: 66.0 - 100.0 seconds. Range based on correlation with therapeutic heparin activity range of 0.3 - 0.7 Units/mL. Current interpretive data was last revised on 2023. Blood 10/16/2023 3:50 PM SPRAY MIXER 10/16/2023 3:50 PM SPRAY MIXER us Frank Cody MD LAB BLOOD ORDERABLES Final Resul t [facility] [address] Department of Laboratories [place], [place] [id number] * (ABNORMAL) Lipid panel (10/16/2023 3:44 PM SPRAY MIXER) Cholesterol 89 30 - 199 mg/dL [facility] Comment: Interpretive Data Ages < or [...] revised on 2018. Triglycerides 106 <=149 mg/dL [facility] Comment: Interpretive Data Ages < or [...] revised on 2018. HDL 34(L) >=40 mg/dL [facility] Comment: Interpretive Data Ages < or [...] on 2018. LDL, calculated 34 <=129 mg/dL [facility] Comment: Interpretive Data Ages < or [...] revised on 2018. Non-HDL Cholesterol 55 mg/dL [facility] Comment: Interpretive Data Ages < or [...] last revised on 2018. Chol/HDL ratio 3 [facility] Blood 10/16/2023 3:44 PM SPRAY MIXER 10/16/2023 3:53 PM SPRAY MIXER us Jaqueline Valero MD LAB BLOOD ORDERABLES Final Result [facility] [address] Department [place] [address] * (ABNORMAL) Hemoglobin A1c (10/16/2023 3:27 PM SPRAY MIXER) Hgb A1C 8.1(H) 4.0 - 5.6 % [facility] Estimated Average Glucose 186 mg/dL [facility] Comment: The ADA recommends reporting an estimated Average Glucose (eAG) with all Hemoglobin A1c results using the equation derived from a study of 507 normal and diabetic adults. ??Minority populations were underrepresented and children were not included. ?? (Diabetes Care 31:7185-0505, 2008). ??The eAG is not equivalent to a fasting glucose. Blood 10/16/2023 3:27 PM SPRAY MIXER 10/16/2023 3:27 PM SPRAY MIXER Jaqueline Valero MD LAB BLOOD ORDERABLES Final Result [facility] [address] Department [place] [address] * XR Chest PA Lateral 2 View (10/16/2023 3:12 PM SPRAY MIXER) Anatomical Region Laterality Modality Body, Chest N/A Computed Radiogr aphy 10/16/2023 3:15 PM SPRAY MIXER Impressions 10/16/2023 3:15 PM SPRAY MIXER Small bilateral pleural effusions with mild bibasilar atelectasis. Small volume fluid tracks into the right minor fissure. ??Mild pulmonary edema. ??No pneumothorax. ??Heart size and mediastinal contours are unchanged. Electronically signed by: Salina Garnica M.D. Narrative 10/16/2023 3:15 PM SPRAY MIXER EXAMINATION: XR CHEST PA LATERAL 2 VIEWS [...] * ECG 12 lead (10/16/2023 2:17 PM SPRAY MIXER) 10/16/2023 2:17 PM SPRAY MIXER Narrative [facility] - 10/16/2023 9:14 PM SPRAY MIXER Vent Rate: 61 bpm RR Interval: 981 msec IA Interval: 235 msec QRS Duration: 150 msec QT Interval: 447 msec QTC Interval: 449 msec P-R-T [place]: 70 - -11 - 134 degrees IMPRESSION: SINUS RHYTHM WITH FIRST DEGREE AV BLOCK LEFT BUNDLE BRANCH BLOCK ABNORMAL ECG Electronically Signed By: Payam White MD Jaqueline Valero MD ECG ORDERABLES Final Resu lt Performing Organization Address [facility] Co de Phone Number [facility] * Prepare RBC: 3 Units (10/16/2023 2:04 PM SPRAY MIXER) [facility] Product code [id number] [facility] Unit Number [id number] [facility] Product Blood Type APOS [facility] Dispense Status PRESUMED TRANSFUSED [facility] Product code [id number] Unit Number [id number] * [facility] Product Blood Type [facility] Dispense Status PRESUMED TRANSFUSED [facility] Product code [id number] [facility] Unit Number [id number] [facility] Product Blood Type [facility] Dispense Status RETURNED [facility] Blood 10/16/2023 2:04 PM SPRAY MIXER Narrative [facility] - 10/19/2023 7:08 AM SPRAY MIXER Specify Procedure:->cabg/aortic valve replacement Are special requirements needed? (All products are leukoreduced and CMV- safe)- >No Date required:-[id number] LRRBC # of [id number] Reasons:-Hold for procedure (specify procedure)} Jaqueline Valero MD BLOOD BANK PRODUCT ORDERAB LES Final Result Performing Organization Address [facility] Co de Phone Number [facility] [address] Department [place] [address] * POCT glucose (10/16/2023 12:22 PM SPRAY MIXER) [facility] Glucose, POC 74 70 - 140 mg/dL [facility] Comment: For Glucose values <35 mg/dl when Hematocrit is >60 mg/dl,the test may not accurately detect significant hypoglycemia,and testing in the Laboratory should be considered if clinically indicated. Blood 10/16/2023 12:2 2 PM SPRAY MIXER 10/16/2023 12:22 PM SPRAY MIXER us Frank Cody MD LAB POCT ORDERABLES - DEVICE Fin al Result Performing Organization Address [facility] de Phone Number [facility] [address] [facility] [place] [address] * (ABNORMAL) POCT glucose (10/16/2023 8:11 AM SPRAY MIXER) Glucose, POC 266(H) 70 - 140 mg/dL [facility] Comment: For Glucose values <35 mg/dl when Hematocrit is >60 mg/dl,the test may not accurately detect significant hypoglycemia,and testing in the Laboratory should be considered if clinically indicated. Blood 10/16/2023 8:11 AM SPRAY MIXER 10/16/2023 8:11 AM SPRAY MIXER us Frank Cody MD LAB POCT ORDERABLES - DEVICE Fin al Result Performing Organization Address [facility] de Phone Number [facility] [address] [facility] [place] [address] * (ABNORMAL) POCT glucose (10/16/2023 4:48 AM SPRAY MIXER) Glucose, POC 329(H) 70 - 140 mg/dL [facility] Comment: For Glucose values <35 mg/dl when Hematocrit is >60 mg/dl,the test may not accurately detect significant hypoglycemia,and testing in the Laboratory should be considered if clinically indicated. Blood 10/16/2023 4:48 AM SPRAY MIXER 10/16/2023 4:48 AM SPRAY MIXER us Frank Cody MD LAB POCT ORDERABLES - DEVICE Fin al Result Performing Organization Address [facility] de Phone Number [facility] [address] [facility] [place] [address] * (ABNORMAL) POCT glucose (10/16/2023 12:37 AM SPRAY MIXER) Glucose, POC 158(H) 70 - 140 mg/dL [facility] Comment: For Glucose values <35 mg/dl when Hematocrit is >60 mg/dl,the test may not accurately detect significant hypoglycemia,and testing in the Laboratory should be considered if clinically indicated. Blood 10/16/2023 12:3 7 AM SPRAY MIXER 10/16/2023 12:37 AM SPRAY MIXER us Frank Cody MD LAB POCT ORDERABLES - DEVICE Fin al Result [facility] [address] Department [place] [address] * (ABNORMAL) Differential, auto (10/16/2023 12:31 AM SPRAY MIXER) [facility] Neutrophil abs 4.5 1.5 - 6.5 K/cumm [facility] Imm gran abs 0.2(H) 0.0 - 0.1 K/cumm [facility] Lymphocyte abs 1.8 0.8 - 3.3 K/cumm [facility] Monocyte abs 1.0(H) 0.2 - 0.8 K/cumm [facility] Eosinophil abs 0.2 0.0 - 0.5 K/cumm [facility] Basophil abs 0.0 0.0 - 0.1 K/cumm [facility] Neutrophil pct 58.6 % [facility] Comment: Interpretive Data Percent cell count reference ranges are not reported, since discordance with absolute values may lead to misinterpretation of CBC data. Current Interpretive Data was last revised on 2017. Imm gran pct 2.1 % [facility] Comment: Interpretive Data Percent cell count reference ranges are not reported, since discordance with absolute values may lead to misinterpretation of CBC data. Current Interpretive Data was last revised on 2017. Lymphocyte pct 23.1 % [facility] Comment: Interpretive Data Percent cell count reference ranges are not reported, since discordance with absolute values may lead to misinterpretation of CBC data. Current Interpretive Data was last revised on 2017. Monocyte pct 13.2 % [facility] Comment: Interpretive Data Percent cell count reference ranges are not reported, since discordance with absolute values may lead to misinterpretation of CBC data. Current Interpretive Data was last revised on 2017. Eosinophil pct 2.5 % [facility] Comment: Interpretive Data Percent cell count reference ranges are not reported, since discordance with absolute values may lead to misinterpretation of CBC data. Current Interpretive Data was last revised on 2017. Basophil pct 0.5 % [facility] Comment: Interpretive Data Percent cell count reference ranges are not reported, since discordance with absolute values may lead to misinterpretation of CBC data. Current Interpretive Data was last revised on 2017. Blood 10/16/2023 12:3 1 AM SPRAY MIXER 10/16/2023 12:36 AM SPRAY MIXER Vinay Pratt DO LAB BLOOD ORDERABLES F inal Result Performing Organization Address [facility] Co de Phone Number [facility] [address] [facility] [place] [address] * (ABNORMAL) aPTT (10/16/2023 12:31 AM SPRAY MIXER) aPTT 80(H) 28 - 38 sec [facility] Comment: Interpretive Data Heparin therapeutic range: 66.0 - 100.0 seconds. Range based on correlation with therapeutic heparin activity range of 0.3 - 0.7 Units/mL. Current interpretive data was last revised on 2023. Blood 10/16/2023 12:3 1 AM SPRAY MIXER 10/16/2023 12:36 AM SPRAY MIXER Frank Cody MD LAB BLOOD ORDERABLES Final Resul t Performing Organization Address [facility]/ZIP Co de Phone Number [facility] [address] [facility] [place] [address] * (ABNORMAL) CBC with auto differential (10/16/2023 12:31 AM SPRAY MIXER) WBC 7.7 3.8 - 9.9 K/cumm [facility] Hgb 9.4(L) 13.0 - 17.5 g/dL [facility] Hct 29.7(L) 38.9 - 50.3 % [facility] Plt 330 150 - 400 K/cumm [facility] MPV 10.9 9.1 - 12.3 fL [facility] RBC 3.24(L) 4.30 - 5.80 M/cumm [facility] MCV 91.7 81.3 - 96.4 fL [facility] MCH 29.0 27.1 - 33.3 pg [facility] MCHC 31.6(L) 32.3 - 35.7 g/dL [facility] RDW CV 14.6 11.1 - 14.9 % [facility] RDW SD 47.2 35.7 - 48.1 fL [facility] NRBC abs 0.03(H) 0.00 - 0.01 K/cumm [facility] Blood 10/16/2023 12:3 1 AM SPRAY MIXER 10/16/2023 12:36 AM SPRAY MIXER Vinay Pratt DO LAB BLOOD ORDERABLES F inal Result [facility] [address] [place] [address] * Check Sample (10/16/2023 12:27 AM SPRAY MIXER) Pathologist [facility] ABO Rh A Positive HCLL OTHER 10/16/2023 12:2 7 AM SPRAY MIXER 10/16/2023 2:18 PM SPRAY MIXER Frank Cody MD LAB BLOOD ORDERABLES Final Resul t [facility] [address] [place] [address] * POCT glucose (10/15/2023 11:20 PM SPRAY MIXER) Glucose, POC 105 70 - 140 mg/dL [facility] Comment: For Glucose values <35 mg/dl when Hematocrit is >60 mg/dl,the test may not accurately detect significant hypoglycemia,and testing in the Laboratory should be considered if clinically indicated. Blood 10/15/2023 11:2 0 PM SPRAY MIXER 10/15/2023 11:20 PM SPRAY MIXER us Frank Cody MD LAB POCT ORDERABLES - DEVICE Fin al Result Performing Organization Address [facility] de Phone Number [facility] [address] [facility] [place] [address] * POCT glucose (10/15/2023 11:01 PM SPRAY MIXER) Glucose, POC 93 70 - 140 mg/dL [facility] Comment: For Glucose values <35 mg/dl when Hematocrit is >60 mg/dl,the test may not accurately detect significant hypoglycemia,and testing in the Laboratory should be considered if clinically indicated. Glucose comment 1 Follow Protocol [facility] Blood 10/15/2023 11:0 1 PM SPRAY MIXER 10/15/2023 11:01 PM SPRAY MIXER Result [facility] us Frank Cody MD LAB POCT ORDERABLES - DEVICE Fin al Result Performing Organization Address [facility] de Phone Number [facility] [address] [facility] [place] [place], [place] [id number] * POCT glucose (10/15/2023 10:45 PM SPRAY MIXER) Glucose, POC 84 70 - 140 mg/dL [facility] Comment: For Glucose values <35 mg/dl when Hematocrit is >60 mg/dl,the test may not accurately detect significant hypoglycemia,and testing in the Laboratory should be considered if clinically indicated. Glucose comment 1 Follow Protocol [facility] Blood 10/15/2023 10:4 5 PM SPRAY MIXER 10/15/2023 10:45 PM SPRAY MIXER us Frank Cody MD LAB POCT ORDERABLES - DEVICE Fin al Result Performing Organization Address [facility] de Phone Number [facility] [address] [facility] [place] [address] * (ABNORMAL) POCT glucose (10/15/2023 10:26 PM SPRAY MIXER) Glucose, POC 69(L) 70 - 140 mg/dL [facility] Comment: For Glucose values <35 mg/dl when Hematocrit is >60 mg/dl,the test may not accurately detect significant hypoglycemia,and testing in the Laboratory should be considered if clinically indicated. Blood 10/15/2023 10:2 6 PM SPRAY MIXER 10/15/2023 10:26 PM SPRAY MIXER Frank Cody MD LAB POCT ORDERABLES - DEVICE Fin al Result Performing Organization Address [facility] Co de Phone Number [facility] [address] [facility] [place] [address] * POCT glucose (10/15/2023 8:12 PM SPRAY MIXER) Glucose, POC 73 70 - 140 mg/dL [facility] Comment: For Glucose values <35 mg/dl when Hematocrit is >60 mg/dl,the test may not accurately detect significant hypoglycemia,and testing in the Laboratory should be considered if clinically indicated. Blood 10/15/2023 8:12 PM SPRAY MIXER 10/15/2023 8:12 PM SPRAY MIXER Frank Cody MD LAB POCT ORDERABLES - DEVICE Fin al Result Performing Organization Address [facility] Co de Phone Number [facility] [address] [place] [address] * POCT glucose (10/15/2023 5:10 PM SPRAY MIXER) Glucose, POC 72 70 - 140 mg/dL [facility] Comment: For Glucose values <35 mg/dl when Hematocrit is >60 mg/dl,the test may not accurately detect significant hypoglycemia,and testing in the Laboratory should be considered if clinically indicated. Blood 10/15/2023 5:10 PM SPRAY MIXER 10/15/2023 5:10 PM SPRAY MIXER us Frank Cody MD LAB POCT ORDERABLES - DEVICE Fin al Result Performing Organization Address [facility] de Phone Number [facility] [address] [facility] [address] [place], [place] [id number] * (ABNORMAL) POCT glucose (10/15/2023 12:13 PM SPRAY MIXER) Glucose, POC 155(H) 70 - 140 mg/dL [facility] Comment: For Glucose values <35 mg/dl when Hematocrit is >60 mg/dl,the test may not accurately detect significant hypoglycemia,and testing in the Laboratory should be considered if clinically indicated. Blood 10/15/2023 12:1 3 PM SPRAY MIXER 10/15/2023 12:13 PM SPRAY MIXER us Frank Cody MD LAB POCT ORDERABLES - DEVICE Fin al Result Performing Organization Address [facility] de Phone Number [facility] [address] [facility] [address] [place], [place] [id number] * (ABNORMAL) aPTT (10/15/2023 11:25 AM SPRAY MIXER) aPTT 59(H) 28 - 38 sec [facility] Comment: Interpretive Data Heparin therapeutic range: 66.0 - 100.0 seconds. Range based on correlation with therapeutic heparin activity range of 0.3 - 0.7 Units/mL. Current interpretive data was last revised on 2023. Blood 10/15/2023 11:2 5 AM SPRAY MIXER 10/15/2023 11:31 AM SPRAY MIXER us Frank Cody MD LAB BLOOD ORDERABLES Final Resul t Performing Organization Address [facility] Co de Phone Number [facility] [address] [facility] [address] [place], [place] [id number] * CT Chest WO Contrast (10/15/2023 11:00 AM SPRAY MIXER) Anatomical Region Laterality Modality Body N/A Computed Tomogra phy 10/15/2023 11:5 8 AM SPRAY MIXER Impressions 10/15/2023 11:58 AM SPRAY MIXER 1. ??Small bilateral pleural effusions with mild bibasilar atelectasis. 2. ??Mildly enlarged likely reactive mediastinal lymph nodes. Attention on follow-up is recommended. Electronically signed by: Arjun Amador M.D. Narrative 10/15/2023 11:58 AM SPRAY MIXER EXAMINATION: ??Computed tomography of the chest without [...] * (ABNORMAL) POCT glucose (10/15/2023 7:56 AM SPRAY MIXER) Glucose, POC 249(H) 70 - 140 mg/dL [facility] Comment: For Glucose values <35 mg/dl when Hematocrit is >60 mg/dl,the test may not accurately detect significant hypoglycemia,and testing in the Laboratory should be considered if clinically indicated. Blood 10/15/2023 7:56 AM SPRAY MIXER 10/15/2023 7:56 AM SPRAY MIXER Frank Cody MD LAB POCT ORDERABLES - DEVICE Fin al Result Performing Organization Address City/[facility]/ZIP Co de Phone Number [facility] [address] [place] [employer] [place] [address] * (ABNORMAL) POCT glucose (10/15/2023 5:34 AM SPRAY MIXER) Glucose, POC 338(H) 70 - 140 mg/dL [facility] Comment: For Glucose values <35 mg/dl when Hematocrit is >60 mg/dl,the test may not accurately detect significant hypoglycemia,and testing in the Laboratory should be considered if clinically indicated. Glucose comment 1 RN/MD Notified [facility] Blood 10/15/2023 5:34 AM SPRAY MIXER 10/15/2023 5:34 AM SPRAY MIXER Frank Cody MD LAB POCT ORDERABLES - DEVICE Fin al Result [facility] [address] [place] [address] * (ABNORMAL) POCT glucose (10/15/2023 4:35 AM SPRAY MIXER) Glucose, POC 344(H) 70 - 140 mg/dL [facility] Comment: For Glucose values <35 mg/dl when Hematocrit is >60 mg/dl,the test may not accurately detect significant hypoglycemia,and testing in the Laboratory should be considered if clinically indicated. Glucose comment 1 RN/MD Notified [facility] Blood 10/15/2023 4:35 AM SPRAY MIXER 10/15/2023 4:35 AM SPRAY MIXER us Frank Cody MD LAB POCT ORDERABLES - DEVICE Fin al Result Performing Organization Address [facility]/ZIP Co de Phone Number [facility] [address] [place] [address] * (ABNORMAL) aPTT (10/15/2023 4:27 AM SPRAY MIXER) aPTT 75(H) 28 - 38 sec [facility] Comment: Interpretive Data Heparin therapeutic range: 66.0 - 100.0 seconds. Range based on correlation with therapeutic heparin activity range of 0.3 - 0.7 Units/mL. Current interpretive data was last revised on 2023. Blood 10/15/2023 4:27 AM SPRAY MIXER 10/15/2023 4:38 AM SPRAY MIXER Narrative [facility] - 10/15/2023 4:55 AM SPRAY MIXER Draw STAT PTT 6 hrs after initiation of heparin infusion, draw STAT PTT 6 hours after each dose change, and every 6 hours until 2 consecutive PTTs are within therapeutic range. Once two consecutive PTT's are therapeutic (66-100 seconds), then draw PTT every AM until heparin is discontinued. us Vinay Pratt DO LAB BLOOD ORDERABLES F inal Result Performing Organization Address [facility]/ZIP Co de Phone Number [facility] [address] [place] [address] * (ABNORMAL) POCT glucose (10/15/2023 1:30 AM SPRAY MIXER) Glucose, POC 334(H) 70 - 140 mg/dL [facility] Comment: For Glucose values <35 mg/dl when Hematocrit is >60 mg/dl,the test may not accurately detect significant hypoglycemia,and testing in the Laboratory should be considered if clinically indicated. Blood 10/15/2023 1:30 AM SPRAY MIXER 10/15/2023 1:30 AM SPRAY MIXER us Frank Cody MD LAB POCT ORDERABLES - DEVICE Fin al Result [facility] [address] Department [place] [address] * (ABNORMAL) Renal function panel (10/15/2023 1:06 AM SPRAY MIXER) [facility] Sodium 130(L) 135 - 145 mmol/L [facility] Potassium, pl 4.3 3.3 - 4.9 mmol/L [facility] Chloride 89(L) 97 - 110 mmol/L [facility] CO2 22 22 - 32 mmol/L [facility] Anion gap 19(H) 2 - 15 mmol/L [facility] BUN 78(H) 6 - 25 mg/dL [facility] Creatinine 10.57(H) 0.80 - 1.30 mg/dL [facility] Glucose 308(H) 70 - 199 mg/dL [facility] Comment: Interpretive Data Fasting glucose >/= [...] 2022. Calcium 8.2(L) 8.5 - 10.3 mg/dL [facility] Phosphorus, pl 5.7(H) 2.3 - 4.5 mg/dL [facility] Albumin 3.3(L) 3.5 - 5.0 g/dL [facility] Blood 10/15/2023 1:06 AM SPRAY MIXER 10/15/2023 1:20 AM SPRAY MIXER Frank Cody MD LAB BLOOD ORDERABLES Final Resul t [facility] [address] Department [place] [address] * eGFR (10/15/2023 1:06 AM SPRAY MIXER) eGFR 5 mL/min/1. 73 m2 [facility] Comment: Interpretive Data Reference Interval Normal [...] last reviewed 2021. Blood 10/15/2023 1:06 AM SPRAY MIXER 10/15/2023 1:20 AM SPRAY MIXER us Frank Cody MD LAB BLOOD ORDERABLES Final Resul t Performing Organization Address [facility] Co de Phone Number [facility] [address] [facility] [place] [address] * (ABNORMAL) aPTT (10/15/2023 1:06 AM SPRAY MIXER) aPTT 69(H) 28 - 38 sec [facility] Comment: Interpretive Data Heparin therapeutic range: 66.0 - 100.0 seconds. Range based on correlation with therapeutic heparin activity range of 0.3 - 0.7 Units/mL. Current interpretive data was last revised on 2023. Blood 10/15/2023 1:06 AM SPRAY MIXER 10/15/2023 1:20 AM SPRAY MIXER us Frank Cody MD LAB BLOOD ORDERABLES Final Resul t Performing Organization Address [facility] de Phone Number [facility] [address] [facility] [place] [address] * (ABNORMAL) Differential, auto (10/15/2023 1:06 AM SPRAY MIXER) Neutrophil abs 4.3 1.5 - 6.5 K/cumm [facility] Imm gran abs 0.1 0.0 - 0.1 K/cumm [facility] Lymphocyte abs 2.2 0.8 - 3.3 K/cumm [facility] Monocyte abs 0.9(H) 0.2 - 0.8 K/cumm [facility] Eosinophil abs 0.1 0.0 - 0.5 K/cumm [facility] Basophil abs 0.0 0.0 - 0.1 K/cumm [facility] Neutrophil pct 56.6 % [facility] Comment: Interpretive Data Percent cell count reference ranges are not reported, since discordance with absolute values may lead to misinterpretation of CBC data. Current Interpretive Data was last revised on 2017. Imm gran pct 1.2 % [facility] Comment: Interpretive Data Percent cell count reference ranges are not reported, since discordance with absolute values may lead to misinterpretation of CBC data. Current Interpretive Data was last revised on 2017. Lymphocyte pct 28.4 % [facility] Comment: Interpretive Data Percent cell count reference ranges are not reported, since discordance with absolute values may lead to misinterpretation of CBC data. Current Interpretive Data was last revised on 2017. Monocyte pct 12.0 % [facility] Comment: Interpretive Data Percent cell count reference ranges are not reported, since discordance with absolute values may lead to misinterpretation of CBC data. Current Interpretive Data was last revised on 2017. Eosinophil pct 1.5 % [facility] Comment: Interpretive Data Percent cell count reference ranges are not reported, since discordance with absolute values may lead to misinterpretation of CBC data. Current Interpretive Data was last revised on 2017. Basophil pct 0.3 % [facility] Comment: Interpretive Data Percent cell count reference ranges are not reported, since discordance with absolute values may lead to misinterpretation of CBC data. Current Interpretive Data was last revised on 2017. Blood 10/15/2023 1:06 AM SPRAY MIXER 10/15/2023 1:20 AM SPRAY MIXER Vinay Pratt DO LAB BLOOD ORDERABLES F inal Result [facility] [address] [place] [address] * (ABNORMAL) Iron profile w/ IBC (10/15/2023 1:06 AM SPRAY MIXER) Iron 72 50 - 150 mcg/dL [facility] TIBC 205(L) 250 - 400 mcg/dL [facility] Transferrin saturation 35 20 - 50 % [facility] Blood 10/15/2023 1:06 AM SPRAY MIXER 10/15/2023 1:20 AM SPRAY MIXER us Fernandez Carranza MD LAB BLOOD ORDERABLES Final Resu lt [facility] [address] [place] [address] * (ABNORMAL) Ferritin (10/15/2023 1:06 AM SPRAY MIXER) [facility] Ferritin 1,322(H) 30 - 400 ng/mL [facility] Blood 10/15/2023 1:06 AM SPRAY MIXER 10/15/2023 1:20 AM SPRAY MIXER us Fernandez Carranza MD LAB BLOOD ORDERABLES Final Resu lt Performing Organization Address [facility]/ZIP Co de Phone Number [facility] [address] [place] [address] * (ABNORMAL) CBC with auto differential (10/15/2023 1:06 AM SPRAY MIXER) [facility] WBC 7.6 3.8 - 9.9 K/cumm [facility] Hgb 9.4(L) 13.0 - 17.5 g/dL [facility] Hct 29.4(L) 38.9 - 50.3 % [facility] Plt 375 150 - 400 K/cumm [facility] MPV 11.0 9.1 - 12.3 fL [facility] RBC 3.23(L) 4.30 - 5.80 M/cumm [facility] MCV 91.0 81.3 - 96.4 fL [facility] MCH 29.1 27.1 - 33.3 pg [facility] MCHC 32.0(L) 32.3 - 35.7 g/dL [facility] RDW CV 14.0 11.1 - 14.9 % [facility] RDW SD 45.5 35.7 - 48.1 fL [facility] NRBC abs 0.02(H) 0.00 - 0.01 K/cumm [facility] Blood 10/15/2023 1:06 AM SPRAY MIXER 10/15/2023 1:20 AM SPRAY MIXER Vinay Pratt DO LAB BLOOD ORDERABLES F inal Result Performing Organization Address City/[facility]/ZIP Co de Phone Number [facility] [address] [place] [address] * (ABNORMAL) aPTT (10/14/2023 8:41 PM SPRAY MIXER) aPTT 75(H) 28 - 38 sec [facility] Comment: Interpretive Data Heparin therapeutic range: 66.0 - 100.0 seconds. Range based on correlation with therapeutic heparin activity range of 0.3 - 0.7 Units/mL. Current interpretive data was last revised on 2023. Blood 10/14/2023 8:41 PM SPRAY MIXER 10/14/2023 8:52 PM SPRAY MIXER us Frank Cody MD LAB BLOOD ORDERABLES Final Resul t Performing Organization Address [facility] Co de Phone Number [facility] [address] [place] [address] * (ABNORMAL) POCT glucose (10/14/2023 8:24 PM SPRAY MIXER) Glucose, POC 232(H) 70 - 140 mg/dL [facility] Comment: For Glucose values <35 mg/dl when Hematocrit is >60 mg/dl,the test may not accurately detect significant hypoglycemia,and testing in the Laboratory should be considered if clinically indicated. Blood 10/14/2023 8:24 PM SPRAY MIXER 10/14/2023 8:24 PM SPRAY MIXER us Frank Cody MD LAB POCT ORDERABLES - DEVICE Fin al Result Performing Organization Address [facility] Co de Phone Number [facility] [address] [place] [address] * (ABNORMAL) POCT glucose (10/14/2023 5:28 PM SPRAY MIXER) Glucose, POC 217(H) 70 - 140 mg/dL [facility] Comment: For Glucose values <35 mg/dl when Hematocrit is >60 mg/dl,the test may not accurately detect significant hypoglycemia,and testing in the Laboratory should be considered if clinically indicated. Blood 10/14/2023 5:28 PM SPRAY MIXER 10/14/2023 5:28 PM SPRAY MIXER Result [facility] Frank Cody MD LAB POCT ORDERABLES - DEVICE Fin al Result Performing Organization Address [facility] Co de Phone Number [facility] [address] Department [place] [address] * (ABNORMAL) aPTT (10/14/2023 2:39 PM SPRAY MIXER) aPTT 43(H) 28 - 38 sec [facility] Comment: Interpretive Data Heparin therapeutic range: 66.0 - 100.0 seconds. Range based on correlation with therapeutic heparin activity range of 0.3 - 0.7 Units/mL. Current interpretive data was last revised on 2023. Blood 10/14/2023 2:39 PM SPRAY MIXER 10/14/2023 2:39 PM SPRAY MIXER Abelardo Randle MD LAB BLOOD ORDERABLES Final Result Performing Organization Address [facility] de Phone Number [facility] [address] [facility] [place] [address] * POCT glucose (10/14/2023 12:15 PM SPRAY MIXER) [facility] Glucose, POC 140 70 - 140 mg/dL [facility] Comment: For Glucose values <35 mg/dl when Hematocrit is >60 mg/dl,the test may not accurately detect significant hypoglycemia,and testing in the Laboratory should be considered if clinically indicated. Blood 10/14/2023 12:1 5 PM SPRAY MIXER 10/14/2023 12:15 PM SPRAY MIXER Result [facility] Frank Cody MD LAB POCT ORDERABLES - DEVICE Fin al Result Performing Organization Address [facility] Co de Phone Number [facility] [address] [place] [address] * POCT glucose (10/14/2023 11:06 AM SPRAY MIXER) Glucose, POC 138 70 - 140 mg/dL [facility] Comment: For Glucose values <35 mg/dl when Hematocrit is >60 mg/dl,the test may not accurately detect significant hypoglycemia,and testing in the Laboratory should be considered if clinically indicated. Blood 10/14/2023 11:0 6 AM SPRAY MIXER 10/14/2023 11:06 AM SPRAY MIXER us Frank Cody MD LAB POCT ORDERABLES - DEVICE Fin al Result Performing Organization Address [facility] de Phone Number [facility] [address] Department [place] [address] * POCT glucose (10/14/2023 8:34 AM SPRAY MIXER) Glucose, POC 134 70 - 140 mg/dL [facility] Comment: For Glucose values <35 mg/dl when Hematocrit is >60 mg/dl,the test may not accurately detect significant hypoglycemia,and testing in the Laboratory should be considered if clinically indicated. Blood 10/14/2023 8:34 AM SPRAY MIXER 10/14/2023 8:34 AM SPRAY MIXER us Frank Cody MD LAB POCT ORDERABLES - DEVICE Fin al Result Performing Organization Address [facility] de Phone Number [facility] [address] Department [place] [address] * (ABNORMAL) POCT glucose (10/14/2023 5:56 AM SPRAY MIXER) Glucose, POC 259(H) 70 - 140 mg/dL [facility] Comment: For Glucose values <35 mg/dl when Hematocrit is >60 mg/dl,the test may not accurately detect significant hypoglycemia,and testing in the Laboratory should be considered if clinically indicated. Blood 10/14/2023 5:56 AM SPRAY MIXER 10/14/2023 5:56 AM SPRAY MIXER us Frank Cody MD LAB POCT ORDERABLES - DEVICE Fin al Result Performing Organization Address [facility]/State/ZIP Co de Phone Number [facility] [address] Department [place] [address] * eGFR (10/14/2023 5:53 AM SPRAY MIXER) eGFR 5 mL/min/1. 73 m2 [facility] Comment: Interpretive Data Reference Interval Normal [...] last reviewed 2021. Blood 10/14/2023 5:53 AM SPRAY MIXER 10/14/2023 6:04 AM SPRAY MIXER us Vinay Pratt DO LAB BLOOD ORDERABLES F inal Result [facility] [address] Department of Laboratories [place], [place] [id number] * (ABNORMAL) aPTT (10/14/2023 5:53 AM SPRAY MIXER) aPTT 56(H) 28 - 38 sec [facility] Comment: Interpretive Data Heparin therapeutic range: 66.0 - 100.0 seconds. Range based on correlation with therapeutic heparin activity range of 0.3 - 0.7 Units/mL. Current interpretive data was last revised on 2023. Blood 10/14/2023 5:53 AM SPRAY MIXER 10/14/2023 6:04 AM SPRAY MIXER Vinay Pratt DO LAB BLOOD ORDERABLES F inal Result [facility] [address] Department [place] [address] * (ABNORMAL) Basic metabolic panel (10/14/2023 5:53 AM SPRAY MIXER) Sodium 131(L) 135 - 145 mmol/L [facility] Potassium, pl 4.3 3.3 - 4.9 mmol/L [facility] Chloride 92(L) 97 - 110 mmol/L [facility] CO2 23 22 - 32 mmol/L [facility] Anion gap 16(H) 2 - 15 mmol/L [facility] BUN 75(H) 6 - 25 mg/dL [facility] Creatinine 10.22(H) 0.80 - 1.30 mg/dL [facility] Glucose 287(H) 70 - 199 mg/dL [facility] Comment: Interpretive Data Fasting glucose >/= [...] 2022. Calcium 9.0 8.5 - 10.3 mg/dL [facility] Blood 10/14/2023 5:53 AM SPRAY MIXER 10/14/2023 6:04 AM SPRAY MIXER Vinay Pratt DO LAB BLOOD ORDERABLES F inal Result Performing Organization Address [facility] Co de Phone Number [facility] [address] [place], [place] [id number] * (ABNORMAL) POCT glucose (10/14/2023 3:58 AM SPRAY MIXER) Glucose, POC 382(H) 70 - 140 mg/dL [facility] Comment: For Glucose values <35 mg/dl when Hematocrit is >60 mg/dl,the test may not accurately detect significant hypoglycemia,and testing in the Laboratory should be considered if clinically indicated. Blood 10/14/2023 3:58 AM SPRAY MIXER 10/14/2023 3:58 AM SPRAY MIXER Frank Cody MD LAB POCT ORDERABLES - DEVICE Fin al Result Performing Organization Address [facility] de Phone Number [facility] [address] [facility] [place] [place], [place] [id number] * (ABNORMAL) POCT glucose (10/14/2023 3:04 AM SPRAY MIXER) Glucose, POC 378(H) 70 - 140 mg/dL [facility] Comment: For Glucose values <35 mg/dl when Hematocrit is >60 mg/dl,the test may not accurately detect significant hypoglycemia,and testing in the Laboratory should be considered if clinically indicated. Blood 10/14/2023 3:04 AM SPRAY MIXER 10/14/2023 3:04 AM SPRAY MIXER Frank Cody MD LAB POCT ORDERABLES - DEVICE Fin al Result Performing Organization Address [facility] de Phone Number [facility] [address] [place], [place] [id number] * (ABNORMAL) POCT glucose (10/14/2023 2:05 AM SPRAY MIXER) Glucose, POC 425(H) 70 - 140 mg/dL [facility] Comment: For Glucose values <35 mg/dl when Hematocrit is >60 mg/dl,the test may not accurately detect significant hypoglycemia,and testing in the Laboratory should be considered if clinically indicated. Blood 10/14/2023 2:05 AM SPRAY MIXER 10/14/2023 2:05 AM SPRAY MIXER us Frank Cody MD LAB POCT ORDERABLES - DEVICE Fin al Result [facility] [address] Department [place] [address] * eGFR (10/14/2023 1:04 AM SPRAY MIXER) eGFR 5 mL/min/1. 73 m2 [facility] Comment: Interpretive Data Reference Interval Normal [...] last reviewed 2021. Blood 10/14/2023 1:04 AM SPRAY MIXER 10/14/2023 1:36 AM SPRAY MIXER us Vinay Pratt DO LAB BLOOD ORDERABLES F inal Result [facility] [address] Department [place] [address] * (ABNORMAL) Differential, auto (10/14/2023 1:04 AM SPRAY MIXER) Neutrophil abs 4.8 1.5 - 6.5 K/cumm [facility] Imm gran abs 0.1 0.0 - 0.1 K/cumm [facility] Lymphocyte abs 0.7(L) 0.8 - 3.3 K/cumm [facility] Monocyte abs 0.7 0.2 - 0.8 K/cumm [facility] Eosinophil abs 0.0 0.0 - 0.5 K/cumm [facility] Basophil abs 0.0 0.0 - 0.1 K/cumm [facility] Neutrophil pct 77.4 % [facility] Comment: Interpretive Data Percent cell count reference ranges are not reported, since discordance with absolute values may lead to misinterpretation of CBC data. Current Interpretive Data was last revised on 2017. Imm gran pct 1.0 % [facility] Comment: Interpretive Data Percent cell count reference ranges are not reported, since discordance with absolute values may lead to misinterpretation of CBC data. Current Interpretive Data was last revised on 2017. Lymphocyte pct 10.4 % [facility] Comment: Interpretive Data Percent cell count reference ranges are not reported, since discordance with absolute values may lead to misinterpretation of CBC data. Current Interpretive Data was last revised on 2017. Monocyte pct 11.2 % [facility] Comment: Interpretive Data Percent cell count reference ranges are not reported, since discordance with absolute values may lead to misinterpretation of CBC data. Current Interpretive Data was last revised on 2017. Eosinophil pct 0.0 % [facility] Comment: Interpretive Data Percent cell count reference ranges are not reported, since discordance with absolute values may lead to misinterpretation of CBC data. Current Interpretive Data was last revised on 2017. Basophil pct 0.0 % [facility] Comment: Interpretive Data Percent cell count reference ranges are not reported, since discordance with absolute values may lead to misinterpretation of CBC data. Current Interpretive Data was last revised on 2017. Blood 10/14/2023 1:04 AM SPRAY MIXER 10/14/2023 1:36 AM SPRAY MIXER Vinay Pratt LAB BLOOD ORDERABLES F inal Result Performing Organization Address [facility] de Phone Number [facility] [address] [place] [address] * (ABNORMAL) aPTT (10/14/2023 1:04 AM SPRAY MIXER) aPTT 68(H) 28 - 38 sec [facility] Comment: Interpretive Data Heparin therapeutic range: 66.0 - 100.0 seconds. Range based on correlation with therapeutic heparin activity range of 0.3 - 0.7 Units/mL. Current interpretive data was last revised on 2023. Blood 10/14/2023 1:04 AM SPRAY MIXER 10/14/2023 1:36 AM SPRAY MIXER Narrative [facility] - 10/14/2023 1:49 AM SPRAY MIXER Baseline prior to heparin initiation Vinay Favian Pratt LAB BLOOD ORDERABLES F inal Result Performing Organization Address [facility] de Phone Number [facility] [address] [facility] [place] [address] * Protime-INR (10/14/2023 1:04 AM SPRAY MIXER) PT 13.5 10.3 - 13.7 sec [facility] INR 1.18 0.90 - 1.20 [facility] Comment: Interpretive data Oral anticoagulant therapeutic ranges: Venous thromboembolism prophylaxis or treatment: 2.0-3.0 CARDIOLOGY Standard range: 2.0-3.0 High-intensity range: 2.5-3.5 Refer to indication-specific guidelines for appropriate target ranges for prosthetic heart valve replacement. Current interpretive data was last revised on 2019. Blood 10/14/2023 1:04 AM SPRAY MIXER 10/14/2023 1:36 AM SPRAY MIXER Narrative [facility] - 10/14/2023 1:49 AM SPRAY MIXER Baseline prior to heparin initiation Vinay Pratt LAB BLOOD ORDERABLES F inal Result Performing Organization Address [facility]/ZIP Co de Phone Number [facility] [address] [place] [employer] [place] [address] * (ABNORMAL) CBC with auto differential (10/14/2023 1:04 AM SPRAY MIXER) WBC 6.2 3.8 - 9.9 K/cumm [facility] Hgb 9.4(L) 13.0 - 17.5 g/dL [facility] Hct 29.0(L) 38.9 - 50.3 % [facility] Plt 357 150 - 400 K/cumm [facility] MPV 11.0 9.1 - 12.3 fL [facility] RBC 3.21(L) 4.30 - 5.80 M/cumm [facility] MCV 90.3 81.3 - 96.4 fL [facility] MCH 29.3 27.1 - 33.3 pg [facility] MCHC 32.4 32.3 - 35.7 g/dL [facility] RDW CV 13.6 11.1 - 14.9 % [facility] RDW SD 44.1 35.7 - 48.1 fL [facility] NRBC abs 0.00 0.00 - 0.01 K/cumm [facility] Blood 10/14/2023 1:04 AM SPRAY MIXER 10/14/2023 1:36 AM SPRAY MIXER Vinay Pratt LAB BLOOD ORDERABLES F inal Result Performing Organization Address [facility]/ZIP Co de Phone Number [facility] [address] [place] [address] * (ABNORMAL) Comprehensive metabolic panel (10/14/2023 1:04 AM SPRAY MIXER) Sodium 130(L) 135 - 145 mmol/L [facility] Potassium, pl 4.3 3.3 - 4.9 mmol/L [facility] Chloride 90(L) 97 - 110 mmol/L [facility] CO2 21(L) 22 - 32 mmol/L [facility] Anion gap 19(H) 2 - 15 mmol/L [facility] BUN 66(H) 6 - 25 mg/dL [facility] Creatinine 10.57(H) 0.80 - 1.30 mg/dL [facility] Glucose 453(C) 70 - 199 mg/dL [facility] Comment: Critical result called to and read back by Brit Zeng RN on 10/14/2023 0211 to [id number] Interpretive Data Fasting glucose >/= 126 mg/dl [...] 2022. Calcium 9.2 8.5 - 10.3 mg/dL [facility] Bilirubin, total 0.3 0.1 - 1.2 mg/dL [facility] Protein, pl 6.4(L) 6.5 - 8.5 g/dL [facility] Albumin 3.4(L) 3.5 - 5.0 g/dL [facility] Alk phos 98 40 - 130 Units/L [facility] ALT 21 7 - 55 Units/L [facility] AST 28 10 - 50 Units/L [facility] Blood 10/14/2023 1:04 AM SPRAY MIXER 10/14/2023 1:36 AM SPRAY MIXER Vinay Pratt DO LAB BLOOD ORDERABLES F inal Result [facility] [address] Department [place] [address] * (ABNORMAL) POCT glucose (10/13/2023 11:25 PM SPRAY MIXER) [employer] Signature Glucose, POC 534(C) 70 - 140 mg/dL [facility] Comment: For Glucose values <35 mg/dl when Hematocrit is >60 mg/dl,the test may not accurately detect significant hypoglycemia,and testing in the Laboratory should be considered if clinically indicated. Glucose comment 1 Glu2: [facility] Blood 10/13/2023 11:2 5 PM SPRAY MIXER 10/13/2023 11:25 PM SPRAY MIXER Frank Cody MD LAB POCT ORDERABLES - DEVICE Fin al Result Performing Organization Address 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 ([facility]) ([facility]) Aortic stenosis, severe S/P CABG x 3 Postsurgical aortocoronary bypass status NSTEMI (non-ST elevated myocardial infarction) ([facility]) ([facility]) Acute myocardial infarction, subendocardial infarction, episode of care unspecified S/P AVR Aortic valve stenosis, etiology of cardiac valve disease unspecified 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 documented in this encounter Admitting Diagnoses Diagnosis CAD in tangirnaq artery documented in this encounter Administered Medications [...] CDT 500 mg al & mag hydroxide ofjrgjrhsyl-jljhftoqiqxxnfz-quylsoxxv-nystatin (MAGIC MOUTHWASH) oral suspension 1-1-1-1 20 mL [...] Call MD for each episode of hypoglycemia. WINE FERMENTER STATES GLUTOSE-15 CONTAINS GLUCOSE 40% W/W (50% [...] DialysisIndications:ESRD on Dialysis Given 10/27/2023 10:12 PM SPRAY MIXER 10,000 Units Left Upper Arm Extraneal 7.5% [...] Mon10/24/23 at 0739 Given 10/24/2023 7:45 AM SPRAY MIXER 200 mg heparin 5,000 unit/mL injection 2,000 [...] manually unheldIndications:Diabetes Mellitus Given 10/23/2023 8:03 AM SPRAY MIXER 4 Units Right Upper Arm Given 10/22/2023 9:17 PM SPRAY MIXER 2 Units Le ft Upper Arm Given 10/22/2023 1:39 PM SPRAY MIXER 2 Units Ri ght Upper Arm insulin [...] unheldIndications:Diabet es Mellitus Given 10/23/2023 8:03 AM SPRAY MIXER 4 Units Right Upper Arm insulin lispro [...] unheldIndications:Diabet es Mellitus Given 10/23/2023 8:03 AM SPRAY MIXER 15 Units Right Upper Arm insulin NPH [...] at 0905, Intra-Op Given 10/17/2023 9:05 AM SPRAY MIXER 50 mL Surgical Site ondansetron (ZOFRAN) injection 4 mg 4 mg, intravenous, Administer over 2 Minutes, Every 6 hours PRN, nausea, vomiting, Starting on Mon10/17/23 at 1324, Administer no sooner than 6 hours after last dose. , Indications: Nausea and VomitingIndications:Nausea and Vomiting Given 10/25/2023 9:13 AM SPRAY MIXER 4 mg Given 10/19/2023 5:21 PM SPRAY MIXER 4 mg Given 10/19/2023 10:48 AM SPRAY MIXER [address] (PROTONIX) extended release [...] at 0906, Intra-Op Given 10/17/2023 9:06 AM SPRAY MIXER 500 mL Other (Comment) polyethylene glycol (MIRALAX) packet 17 g 17 g, oral, Daily, First dose (after last modification) on Mon10/20/23 at 1045, Hold for diarrhea, Indications: constipationIndications:constip ation Given 10/30/2023 8:15 AM CDT 17 g Given 10/29/2023 8:19 AM CDT 17 g Given 10/22/2023 8:13 AM SPRAY MIXER 17 g potassium chloride ER (KLOR-CON) extended [...] 8 m g Given 10/26/2023 10:57 PM SPRAY MIXER 8 mg Given 10/25/2023 9:05 PM SPRAY MIXER 8 mg senna (SENOKOT) tablet 1 tablet [...] CDT 10 mL Given 10/28/2023 12:40 AM SPRAY MIXER 20 mL Given 10/25/2023 9:14 AM SPRAY MIXER 10 mL sodium chloride 0.9% irrigation As needed, Starting on Mon10/17/23 at 0908, Intra-Op Given 10/17/2023 9:08 AM SPRAY MIXER 4,000 mL Surgical Site sodium chloride tablet [...] 11/02/2023 11/03/2023 al & mag hydroxide simethicone-diphenhydrami et-hbbexsgca-battnezt (MAGIC MOUTHWASH) oral suspension 1-1-1-1 20 mL [...] RN) 0146 (Not Given - Provider: Abelardo Barr RN - Reason: Other)0838 (Given - Provider: [...] 2200, At 10 PM with PD at [place]. Hold if no PD planned., Reason for [...] Call MD for each episode of hypoglycemia. WINE FERMENTER STATES GLUTOSE-15 CONTAINS GLUCOSE 40% W/W (50% [...] Call MD for each episode of hypoglycemia. WINE FERMENTER STATES GLUTOSE-15 CONTAINS GLUCOSE 40% W/W (50% [...] 4 024 10/23/2023 al & mag hydroxide myzdzuwkjpn-gdgdcvhvuobuwbz-gjnopijgd-nyst atin (MAGIC MOUTHWASH) oral suspension 1-1-1-1 20 [...] TO ENDOCRINOLOGY 1 10/18/2023 IP CONSULT TO PAYROLL ASSISTANT 1 IP CONSULT TO CARDIOLOGY 1 10/14/2023 [...] 11/03/2023 documented in this encounter Care Teams Forge Shop Supervisor Relationship Specialty Start Date End Date Aditya Correa MD [address] [facility] [place] [address] PCP - General 10/17/19 documented as of this encounter
--- OUTSIDE RECORDS SUMMARY | 2024-09-07 19:18 | XMS_ITS | Encounter Summary ---
Author Organization [facility] Address [address] [address] Care Team Providers Care Impregnator Operator Name Role Phone Aditya Castro MD Primary Care Provider [phone] Encounter Details Date Type Department Care Team (Late st Contact Info) Description 05/22/2023 Orders Only [facility] Cardiology [address] [facility] [address] [facility] [address] [place] [address] Abelardo Petit MD [address] [facility] [address] [place] [address] Social History Tobacco Use Types [...] on file 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
--- OUTSIDE RECORDS SUMMARY | 2024-09-07 19:18 | XMS_ITS | Encounter Summary ---
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
--- OUTSIDE RECORDS SUMMARY | 2024-09-07 19:20 | XMS_ITS | Encounter Summary ---
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 Name Role Phone Aditya Castro MD Primary Care Provider [phone] Reason for Visit * Auth/Cert Specialty Diagnoses / Procedures Referred By Contac t Referred To Contact Diagnoses Angina pectoris (HCC) NON STEMI CARDS FIRM, PD, covid neg Procedures N/A Referral ID Status Reason Start Date Expiration Date Visits Re quested Visits Authorized [id number] 1 1 Encounter Details Date Type Department Care Team (Late st Contact Info) Description 06/04/2022 9:32 PM CDT - 06/29/2022 2:07 PM OBIEE OBIA SOLUTION ARCHITECT Hospital Encounter [facility] [address] [place] [address] Champ Osborne MD PhD [address] [place] [address] Gunnar José MD [address] [place] [address] Conrad Akers MD [address] [place] [address] Catherine Adams MD [address] [place] [address] Carey East MD [address] [place] [address] Roberth Mas MD [address] [place] [address] Frank Bowers MD [address] [place] [address] Hypotension, unspecified hypotension type (Primary Dx); Diagnosis unknown; CAD (coronary artery disease); Unstable angina ([facility]) ([facility]); Coronary artery disease involving [place] coronary artery of [place] heart with unstable angina pectoris ([facility]) ([facility]); Hyperlipidemia, unspecified hyperlipidemia type; Coronary artery disease involving [place] heart without angina pectoris, unspecified vessel or lesion type; Acute hypoxemic respiratory failure ([facility]); Angina pectoris ([facility]); End stage renal disease ([facility]) ([facility]) Discharge Disposition: Discharge to an IP Rehab [...] on file Legal Sex Male 3:42 AM OBIEE OBIA SOLUTION ARCHITECT Gender Identity Not on file Sexual Orientation Not on file documented as of this encounter Last Filed Vital Signs Vital Sign Reading Time Taken Comments Blood Pressure 118/59 06/29/2022 1:25 PM OBIEE OBIA SOLUTION ARCHITECT Pulse 77 06/29/2022 1:25 PM OBIEE OBIA SOLUTION ARCHITECT Temperature 36.7 ??C (98 ??F) 06/29/2022 1:25 PM OBIEE OBIA SOLUTION ARCHITECT Respiratory Rate 18 06/29/2022 7:43 AM OBIEE OBIA SOLUTION ARCHITECT Oxygen Saturation 100% 06/29/2022 1:25 PM OBIEE OBIA SOLUTION ARCHITECT Inhaled Oxygen Concentration - - Weight 118.1 kg (260 lb 6.4 oz) 06/29/2022 6:32 AM OBIEE OBIA SOLUTION ARCHITECT Height 177.8 cm (5' 10 ) 06/04/2022 9:35 PM CDT Body Mass Index 37.36 06/04/2022 9:35 PM CDT documented in this encounter Discharge Summaries * Frank Bowers MD - 06/29/2022 10:13 AM CST Inpatient Discharge Summary BRIEF OVERVIEW Admitting Provider: Catherine Adams MD Discharge Provider: Frank Bowers MD Primary Care Physician at Discharge: Aditya Castro MD [phone] Admission Date: 06/04/2022 Discharge Date: 06/29/2022 Admission Location: [facility] Problems/Diagnoses: Principal Problem: NSTEMI (non-ST elevated myocardial infarction) ([facility]) ([facility]) Active Problems: Cardiogenic shock ([facility]) Type 1 diabetes mellitus (HCC) ESRD (end stage renal disease) ([facility]) ([facility]) Acute hypoxemic respiratory failure ([facility]) Anemia Acute on chronic HFrEF (heart failure with reduced ejection fraction) ([facility]) Atrial fibrillation ([facility]) ([facility]) Resolved Problems: No resolved hospital problems. DETAILS OF HOSPITAL STAY Presenting Problem/History of Present Illness: As per Admission H&P AC), HTN, CAD s/p stent 04/06 and 3 stent 12/07, T1DM (insulin pump at home), ESRD on PD, HLD, GERD, hyperparathyroidism, DDD, OA, gout, BNE on CPAP initially presented to [facility] for n/v andchest pain, transferred to [facility] for LHC/PCI, now presenting to CCU s/p complex PCI with impella and intubated. At the OSH he presented with 3d generalized weakness, chills, ROONEY, n/v, chest pain relieved by sublingual ntg. His labs were notable for trop 1.0-->1.09-->0.729, BNP 75489. He had a CT CAP showing cholelithiasis [...] circumflex as optimal treatment, prompting transfer to [facility]. He arrived at [facility] 06/05. EKG showed sinus bradycardia, 1st deg [...] 06/22. * NSTEMI (non-ST elevated myocardial infarction) ([facility]) ([facility]) With interventions described above. Post-transfer [...] on discharge given pressure tolerance. Atrial fibrillation ([facility]) ([facility]) He was in atrial fibrillation [...] HFrEF (heart failure with reduced ejection fraction) ([facility]) He developed cardiogenic shock requiring [...] to metoprolol. ESRD (end stage renal disease) ([facility]) ([facility]) Renal consulted on admission with history of ESRD on PD. While in ICU, temporary dialysis catheter was placed to facilitate CRRT for volume removal. Upon transfer to the floor, PD was continued and tolerated well. He was continued on his home vitamins for renal bone mineral disease and phoslo. Trialysis removed 06/25. Type 1 diabetes mellitus ([facility]) Prior to admission, his A1c [...] REMOVE PERC ARTERIAL VAD (IMPELLA), DIFFERENT SESSION [id number] Other Procedures: Pertinent Test Results: See hospital [...] one tablet three times daily Outpatient Follow-Up: E OBIA SOLUTION ARCHITECT documented in this encounter Discharge Instructions * Discharge Instructions* Frank Bowers MD - 06/29/2022 9:19 AM OBIEE OBIA SOLUTION ARCHITECT Mr. Adelia Garvin, You were admitted to the hospital for chest pain, and you were seen by our cardiology specialists where you received a new stent placed. As you have improved and are tolerating your insulin pump wellas well as your dialysis, you are stable to be discharged to the rehab facility. Continue Omnipod 5 insulin pump with [employer] G6 CGM at home settings: TIME BASAL [...] yearly or sooner as indicated by your adult specialist Pending results for primary service or primary care physician to follow up on: None at time of discharge Follow Up Plan: Follow up with endocrinology near his home 1-2 weeks after discharge to reassess glycemic management and adjust insulin pump settings as needed. E OBIA SOLUTION ARCHITECT E OBIA SOLUTION ARCHITECT documented in this encounter Medications at Time [...] Means Destination Discharge to an Rehab facility [facility] documented in this encounter Progress Notes * Elsie Gonzalez RN - 06/29/2022 11:30 AM CST 06/06/22 1203 Discharge Summary Chart reviewed For Medical Necessity Does patient have a planned readmission to hospital planned? No Discharge Disposition Home;Inpatient (Acute) Rehab Hospital Specify Facility [facility] Contact Number Contact- Minerva Hurt- [phone] for report- [phone] fax [phone] Equipment/Provider Needs No Home Needs Identified Discharge Additional Assistance Does the patient need discharge transport arranged? No (family to transport to [facility]) Post Discharge Care Provider Post Discharge Care Plan DC Summary and post acute care report has been faxed to next level of careprovider (see Follow Up Providers) Patient is medically stable to discharge home today. Patient will have transportation provided by the patient's brother. Patient instructed to f/u with PCP after release from [facility]. No additional needs noted at this time. E OBIA SOLUTION ARCHITECT E OBIA SOLUTION ARCHITECT * Frank Bowers MD - 06/29/2022 10:12 AM CST Daily Progress Note Division of Hospital Medicine Name: Adelia Garvin Jr. Today: June 29, 2022 : 1970 Age: 51 y.o. male Admit: 06/04/2022 Bed: [id number] Subjective Chief complaint: NSTEMI Interval History: Pt [...] 06/29/2022 0815 Gross per 24 hour Intake 79289 ml Output 35761 ml Net -664 ml Physical Exam Constitutional: [...] Resolved. * NSTEMI (non-ST elevated myocardial infarction) ([facility]) ([facility]) Assessment & Plan With recurrent [...] today ESRD (end stage renal disease) (CMS/HCC) ([facility]) Assessment & Plan - Renal [...] start of peritoneal dialysis session Atrial fibrillation ([facility]/HCC) ([facility]) Assessment & Plan Converted to [...] HFrEF (heart failure with reduced ejection fraction) ([facility]) Assessment & Plan C/b cardiogenic [...] and trend Hb. Acute hypoxemic respiratory failure ([facility]) Assessment & Plan Secondary to ACS and flash pulmonary edema, since resolved and extubated on 06/19. Patient passed barium swallow on 06/21. 46 minutes spent on discharge planning and care coordination including recommendations regarding insulin pump at discharge E OBIA SOLUTION ARCHITECT E OBIA SOLUTION ARCHITECT * Janelle Romero, OT - 06/29/2022 9:30 [...] not assigned to this patient, please call [phone]. 06/29/22 0930 General Session Type Treatment OT [...] demonstrate modified independence/independence with ADL task completion. E OBIA SOLUTION ARCHITECT * Kip Julian, PT - 06/29/2022 8:53 AM CST Physical Therapy 06/29/22 0853 General PT Missed Visit Reason Patient declined E OBIA SOLUTION ARCHITECT * Frank Bowers MD - 06/28/2022 3:30 PM CST Daily Progress Note Division of Hospital Medicine Name: Adelia Garvin Jr. Today: June 28, 2022 : 1970 Age: 51 y.o. male Admit: 06/04/2022 Bed: [id number] Subjective Chief complaint: NSTEMI Interval History: Pt [...] 06/28/2022 1300 Gross per 24 hour Intake 78478 ml Output 51905 ml Net -851 ml Physical Exam Constitutional: [...] by: Félix Chahal M.D. Assessment/Plan Cardiogenic shock ([facility]) Assessment & Plan Secondary to NSTEMI, s/p Impella since removed on 06/10. Resolved. * NSTEMI (non-ST elevated myocardial infarction) (CMS/HCC) ([facility]) Assessment & Plan With recurrent [...] been accepted ESRD (end stage renal disease) (CMS/[facility]) ([facility]) Assessment & Plan - Renal consulted, s/p CRRT in the ICU now back on PD. Tolerated well and nephrology following - Trialysis catheter removed - Continue vitamins for renal bone mineral disease. Type 1 diabetes mellitus ([facility]) Assessment & Plan A1c well [...] NPH 45u before PD Atrial fibrillation (CMS/HCC) ([facility]) Assessment & Plan Converted to [...] HFrEF (heart failure with reduced ejection fraction) ([facility]) Assessment & Plan C/b cardiogenic [...] 06/19. Patient passed barium swallow on 06/21. E OBIA SOLUTION ARCHITECT * Shelbie Garcia, RD - 06/28/2022 2:38 [...] of Weight Used for Estimated Protein : [place] Protein Needs Based on g/k.5 Total Protein [...] 06/28/2022 1300 Gross per 24 hour Intake 44978 ml Output 29496 ml Net -851 ml Gastrointestinal Gastrointestinal (WDL): [...] Comments: Heart Healthy Diet Question Answer Comment ([facility]) Diet type Restricted Fat / Sodium [...] of his insulin pump. Pt seen by LICENSING SPECIALIST today. Can continue on regular textured [...] Stool patterns, Weight changes Shelbie Garcia RD [phone] E OBIA SOLUTION ARCHITECT * Carey East MD - 06/27/2022 4:57 PM CST Daily Progress Note Division of Hospital Medicine Name: Adelia Garvin Jr. Today: June 27, 2022 : 1970 Age: 51 y.o. male Admit: 06/04/2022 Bed: [id number] Subjective Chief complaint: CAD s/p PCI, T1DM, [...] 06/27/2022 0745 Gross per 24 hour Intake 84514 ml Output 38628 ml Net -1949 ml Physical Exam Constitutional: NAD, well developed, well nourished Eyes: Conjunctiva normal, sclera anicteric Lungs: Clear to auscultation in all lung charles, breathing unlabored Cardiovascular: RRR, normal S1 and S2, no murmurs GI: Soft, NT, mildly distended, NABS Skin: No new rashes, lesions or bruises on visible skin. Former [facility] site c/d/I, covered with gauze bandage [...] to the floor, improving. Atrial fibrillation (CMS/HCC) ([facility]) Assessment & Plan Converted to [...] HFrEF (heart failure with reduced ejection fraction) ([facility]) Assessment & Plan C/b cardiogenic shock requiring impella in the setting of cath and AHRF 2/2 pulmonary edema, now resolved. TTE demonstrating recovered EF 65% with grade I diastolic dysfunction. - metop as above - continue low dose losartan 12.5mg daily, ok per nephro - volume management per PD ESRD (end stage renal disease) ([facility]) ([facility]) Assessment & Plan - Renal consulted, s/p CRRT in the ICU now back on PD. - Continue vitamins for renal bone mineral disease - continue phoslo Type 1 diabetes mellitus ([facility]) Assessment & Plan A1c well [...] PD * NSTEMI (non-ST elevated myocardial infarction) ([facility]) ([facility]) Assessment & Plan With recurrent [...] on 06/21. Currently on RA. Cardiogenic shock ([facility]) Assessment & Plan Secondary to NSTEMI, s/p Impella since removed on 06/10. Resolved. Post-acute planning: - inpatient acute rehab per PT recs, CM aware and searching for facilities E OBIA SOLUTION ARCHITECT * Arleen Andre MD - 06/27/2022 3:50 PM CST ASSESSMENT AND RECOMMENDATIONS ESRD: He is doing well on the current PD regimen. Ultrafilters approximately 2613-7677 ml/day. Continue current regimen Hypokalemia: Start Kcl [...] Type: Continuous Cycling Peritoneal Dialysis Machine Type: IndianStage Pro Dianeal Solution: Dextrose 2.5% in 5000 mL (+ 7.5% last fill) Dwell Time (min): 77 min Drain Time (min): 39 min Initial Drain Volume (mL): 690 mL Last Fill Volume (mL): 785 mL Fill Volume In (mL): 88429 mL Effluent Volume Out (mL): 82339 ml Balance This Exchange (mL): 1944 mL [...] edema I/O last 2 completed shifts: In: 55475 [P.O.:440; Other:11037] Out: 53281 [Urine:300; Other:82227] I have reviewed current medications and the [...] FERRITIN 2,062 (H) 06/07/2022 Arleen Andre MD director maternal child Division of Nephrology E OBIA SOLUTION ARCHITECT * So Lawrence, OT - 06/27/2022 9:37 [...] not assigned to this patient, please call [phone]. 06/27/22 0937 General Session Type Treatment OT [...] demonstrate modified independence/independence with ADL task completion. E OBIA SOLUTION ARCHITECT * Carlos Dupree MD - 06/26/2022 4:13 PM CST Endocrinology & Diabetes Progress Note Patient: Adelia Garvin Jr., 51 y.o. male (: 1970) Room: [place] [id number]/[id number] ( ) LOS: 22 Adelia Garvin Jr. 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, complicated by ESRD on PD, CAD s/p PCI, CHF - HbA1c 7.4% - Uses Omnipod and Dexcom G6 at home, not currently on this- doesn't have the supplies -On significantly higher basal rates on pump at night due to peritoneal dialysis -home settings: Basal rate 0330 >>1.7 0800 >> 0.8 2000 >> 5.8 ICR1:6.5 ISF1:25 [id number] TIA 4 Inpatient glycemic management complicated by [...] ## Discharge Planning - Follow-up with home journalism internship -- Carlos Dupree MD Endocrinology, Metabolism, & Lipid Research Contact Info: New Consults: [phone]) General Endocrine (Non-Diabetes): [phone] (Check 'Treatment Team' assignment for Diabetes 1 vs 2 vs 3) Diabetes 1: Diabetes Fellow: [phone] Diabetes 2: Dora Delarosa, HEEL EMERY BUFFER: [phone] Diabetes 3: See Treatment Team Provider (or call Dora Delarosa, above) Diabetes After-Hours & Weekends: Diabetes Fellow E OBIA SOLUTION ARCHITECT * Carey East MD - 06/26/2022 12:39 PM CST Daily Progress Note Division of Hospital Medicine Name: Adelia Garvni Jr. Today: June 26, 2022 : 1970 Age: 51 y.o. male Admit: 06/04/2022 Bed: [id number] Subjective Chief complaint: CAD s/p PCI, T1DM, [...] 06/26/2022 1110 Gross per 24 hour Intake 13083 ml Output 51424 ml Net -1847 ml Physical Exam Constitutional: [...] to the floor, improving. Atrial fibrillation (CMS/HCC) ([facility]) Assessment & Plan Converted to [...] HFrEF (heart failure with reduced ejection fraction) ([facility]) Assessment & Plan C/b cardiogenic shock requiring impella in the setting of cath and AHRF 2/2 pulmonary edema, now resolved. TTE demonstrating recovered EF 65% with grade I diastolic dysfunction. - metop as above - continue low dose losartan 12.5mg daily, ok per nephro - volume management per PD ESRD (end stage renal disease) ([facility]) ([facility]) Assessment & Plan - Renal consulted, s/p CRRT in the ICU now back on PD. - Trialysis catheter still in place --> removed today - Continue vitamins for renal bone mineral disease - resume phoslo today Type 1 diabetes mellitus ([facility]) Assessment & Plan A1c well [...] PD * NSTEMI (non-ST elevated myocardial infarction) ([facility]) ([facility]) Assessment & Plan With recurrent [...] on 06/21. Currently on RA. Cardiogenic shock ([facility]) Assessment & Plan Secondary to NSTEMI, s/p Impella since removed on 06/10. Resolved. Post-acute planning: - inpatient acute rehab per PT recs CM aware E OBIA SOLUTION ARCHITECT * Carey East MD - 06/25/2022 11:51 AM CDT Daily Progress Note Division of Hospital Medicine Name: Adelia Garvin Jr. Today: June 25, 2022 : 1970 Age: 51 y.o. male Admit: 06/04/2022 Bed: [id number] Subjective Chief complaint: CAD s/p PCI, T1DM, [...] 06/25/2022 0600 Gross per 24 hour Intake 54416 ml Output 83034 ml Net -2404 ml Physical Exam Constitutional: [...] transferred to the floor, improving. Atrial fibrillation ([facility]) ([facility]) Assessment & Plan Converted to NSR overnight. CHADsVASc of 4 not on anticoagulation prior to admission. - cardiology consulted - recommended ongoing rate control - holding off on a/c with high risk for bleeding while on DAPT - continue metop 50mg BID Acute on chronic HFrEF (heart failure with reduced ejection fraction) ([facility]) Assessment & Plan C/b cardiogenic shock requiring impella in the setting of cath and AHRF 2/2 pulmonary edema, now resolved. TTE demonstrating recovered EF 65% with grade I diastolic dysfunction. - metop as above - start low dose losartan 12.5mg daily today, ok per nephro - volume management per PD ESRD (end stage renal disease) ([facility]) ([facility]) Assessment & Plan - Renal consulted, s/p CRRT in the ICU now back on PD. - Trialysis catheter still in place --> removed today - Continue vitamins for renal bone mineral disease. Type 1 diabetes mellitus ([facility]) Assessment & Plan A1c well [...] mobility Prior Function Prior Function Level of [place]: Independent with ADLs, Independent functional transfers, Independent [...] (increased time required) Compliance/Behavior: Easy to engage [place] Cognitive Assessment (MOCA) MOCA Version: Version 3 [...] not assigned to this patient, please call [phone]. * Carey East MD - 06/24/2022 4:30 PM CDT Daily Progress Note Division of Hospital Medicine Name: Adelia Garvin Jr. Today: June 24, 2022 : 1970 Age: 51 y.o. male Admit: 06/04/2022 Bed: [id number] Subjective Chief complaint: CAD s/p PCI, T1DM, [...] 06/24/2022 0536 Gross per 24 hour Intake 05352 ml Output 14383 ml Net -347 ml Physical Exam Constitutional: [...] with new chest pressure today. Atrial fibrillation ([facility]) ([facility]) Assessment & Plan Currently rated [...] HFrEF (heart failure with reduced ejection fraction) ([facility]) Assessment & Plan C/b cardiogenic shock requiring impella in the setting of cath and AHRF 2/2 pulmonary edema, now resolved. TTE demonstrating recovered EF 65% with grade I diastolic dysfunction. - metop as above - not on NICOLÁS/ARB due to ESRD, d/w nephro - volume management per PD ESRD (end stage renal disease) ([facility]) ([facility]) Assessment & Plan - Renal consulted, s/p CRRT in the ICU now back on PD. - Trialysis catheter still in place --> will remove tomorrow - Continue vitamins for renal bone mineral disease. Type 1 diabetes mellitus ([facility]) Assessment & Plan A1c well [...] use * NSTEMI (non-ST elevated myocardial infarction) ([facility]) ([facility]) Assessment & Plan With recurrent [...] Weakness, N/V, diarrhea, chest pain. Resp failure, XAHEMR08/18: S/p complex PCI and Impella placement for [...] No Prior Function Prior Function Level of [place]: Independent functional transfers, Independent with ambulation Lives [...] treatment team and contact the PT or SUPERVISOR GRIPS currently assigned to this patient. If a physical therapy clinician is not assigned to this patient, please call [phone]. * Carey East MD - 06/23/2022 4:37 PM CDT Daily Progress Note Division of [facility] Medicine Name: Adelia Garvin Jr. Today: June 23, 2022 : 1970 Age: 51 y.o. male Admit: 06/04/2022 Bed: [id number] Subjective Chief complaint: CAD s/p PCI, T1DM, [...] 06/23/2022 0625 Gross per 24 hour Intake 76380 ml Output 10809 ml Net -2575 ml Physical Exam Constitutional: [...] EKG/Min 100 BPM Atrial Rate 100 BPM OK-Interval (MSEC) 182 ms QRS-Interval (MSEC) 106 ms QT-Interval (MSEC) 380 ms QTc 490 ms R [place] -47 degrees T [place] 105 degrees Diagnosis Sinus rhythm with Premature [...] removed on 06/10. Resolved. Atrial fibrillation (CMS/HCC) ([facility]) Assessment & Plan Currently rated controlled with metoprolol, CHADsVASc of 4 not on anticoagulation prior to admission. - cardiology consulted - metop as elsewhere Acute on chronic HFrEF (heart failure with reduced ejection fraction) ([facility]) Assessment & Plan C/b cardiogenic shock requiring impella in the setting of cath and AHRF 2/2 pulmonary edema, now resolved. TTE demonstrating recovered EF 65% with grade I diastolic dysfunction. - consolidate metoprolol today: 25 q6h --> 50mg BID - not on NICOLÁS/ARB due to ESRD, will d/w nephro - volume management per PD ESRD (end stage renal disease) (CMS/HCC) ([facility]) Assessment & Plan - Renal [...] use * NSTEMI (non-ST elevated myocardial infarction) ([facility]) ([facility]) Assessment & Plan With recurrent [...] PD, HLD, GERD, hyperparathyroidism, DDD, OA, gout, EBN on CPAP initially presented to [facility] for generalized weakness, n/v, diarrhea, and chest pain now being transferred for LHC/PCI 06/06. Objective Past Medical History: Diagnosis Date CAD (coronary artery disease) Chest pain Diabetes mellitus (HCC) Diabetes mellitus type I (HCC) Dialysis patient ([facility] [facility]) ([facility]) ESRD on dialysis ([facility] ([facility]) GERD (gastroesophageal reflux disease) Hyperlipidemia [...] of Weight Used for Estimated Protein : [place] Protein Needs Based on g/k.5 Total Protein [...] 06/23/2022 0625 Gross per 24 hour Intake 24533 ml Output 01900 ml Net -2575 ml Gastrointestinal Gastrointestinal (WDL): [...] Comments: Heart Healthy Diet Question Answer Comment ([facility]) Diet type Restricted Fat / Sodium [...] Supplement tolerance Ronny Vasquez MS, RDN LD Log Data Technician RD number [phone] * Luiz LewisDO valencia - 06/22/2022 8:22 [...] at 06/22/20221944 Gross per 24 hour Intake 44875 ml Output 42989 ml Net -2209 ml Constitutional - chronically [...] since removed on 06/10. Atrial fibrillation (CMS/HCC) ([facility]) Assessment & Plan -Currently rated controlled with metoprolol, CHADsVASc of 4 not on anticoagulation prior to admission. -Follow cardiology for initiation of AC. Acute on chronic HFrEF (heart failure with reduced ejection fraction) ([facility]) Assessment & Plan -With acute exacerbation complicated by pulmonary edema since resolved. -Repeat TTE following Impella removal showed recovered EF of 65% with grade I diastolic dysfunction. -Continue metoprolol tartrate, start GDMT per cardiology. ESRD (end stage renal disease) (CMS/HCC) ([facility]) Assessment & Plan -Renal consulted, [...] swallow on 06/21. Type 1 diabetes mellitus ([facility]) Assessment & Plan -Patient on insulin pump at home. -Endocrine consulted, patient currently on basal bolus regimen with NPH for hyperglycemic episodes. -Continue insulin regimen per endocrine. * NSTEMI (non-ST elevated myocardial infarction) (CMS/HCC) ([facility]) Assessment & Plan -Patient with multiple risk factors, s/p complex PCI to LCx and OM bifurcation with MARIELLA. -Continue DAPT with aspirin, Plavix and atorvastatin. Luiz Lewis DO Hospital Medicine * Tyra De La Torre MD - 06/22/2022 4:17 PM CDT CCU DAILY PROGRESS Patient: Adelia Garvin Jr. Room: [id number] Date: 06/22/2022 Summary Statement: Adelia Garvin Jr. is a 51 y.o. male with a history of CHF (EF 50% 2016), Afib (not on AC), HTN, CAD s/p stent 04/06 and 3 stent 12/07, T1DM (insulin pump at home), ESRD on PD, HLD, GERD, hyperparathyroidism, DDD, OA, gout, BEN on CPAP initially presented to OSH for n/v and chest pain, transferred to [facility] for LHC/PCI, who presented to CCU [...] 06/22/2022 0500 Gross per 24 hour Intake 66095 ml Output 40732 ml Net -1759 ml Ventilator Settings: N/a [...] in anterior wall and anterior septem sugegsting CAD/[place] in the LAD territory. LVEF is in [...] gout, BEN on CPAP initially presented to [facility] for n/v and chest pain, transferred to [facility] for LHC/PCI, who presented to the [...] Pt became acutely hypoxic while in the laboratory worker, required 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 #Nutrition - continue tube feeds - LICENSING SPECIALIST eval - remove NGT and restart [...] HEME/ONC #Anemia Hgb 9.5 on admission to [facility] and 7.8 on arrival to CCU. [...] plan with the ICU team and other medical/recruitment consultant staff. * Tyra De La Torre MD - 06/21/2022 9:15 AM CDT CCU DAILY PROGRESS Patient: Adelia Garvin Jr. Room: [id number] Date: 06/21/2022 Summary Statement: Adelia Garvin Jr. is a 51 y.o. male with a history of CHF (EF 50% 2016), Afib (not on AC), HTN, CAD s/p stent 04/06 and 3 stent 12/07, T1DM (insulin pump at home), ESRD on PD, HLD, GERD, hyperparathyroidism, DDD, OA, gout, BEN on CPAP initially presented to OSH for n/v and chest pain, transferred to [facility] for LHC/PCI, who presented to CCU [...] in anterior wall and anterior septem sugegsting CAD/[place] in the LAD territory. LVEF is in [...] gout, BEN on CPAP initially presented to [facility] for n/v and chest pain, transferred to [facility] for LHC/PCI, who presented to the [...] Pt became acutely hypoxic while in the laboratory worker, required 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 #Nutrition - continue tube feeds - LICENSING SPECIALIST eval - remove NGT and restart [...] HEME/ONC #Anemia Hgb 9.5 on admission to [facility] and 7.8 on arrival to CCU. [...] plan with the ICU team and other medical/recruitment consultant staff. * Jess Redmond, PT - [...] DAILY PROGRESS Patient: Adelia Garvin Jr. Room: [place] [id number] Date: 06/20/2022 Summary Statement: Adelia Garvin Jr. is a 51 y.o. male with a history of CHF (EF 50% 2016), Afib (not on AC), HTN, CAD s/p stent 04/06 and 3 stent 12/07, T1DM (insulin pump at home), ESRD on PD, HLD, GERD, hyperparathyroidism, DDD, OA, gout, BEN on CPAP initially presented to OSH for n/v and chest pain, transferred to [facility] for LHC/PCI, who presented to CCU [...] gtt - continue amio gtt 0.5 - LICENSING SPECIALIST eval for possible removal of NGT [...] in anterior wall and anterior septem sugegsting CAD/[place] in the LAD territory. LVEF is in [...] gout, BEN on CPAP initially presented to [facility] for n/v and chest pain, transferred to [facility] for LHC/PCI, who presented to the [...] Pt became acutely hypoxic while in the laboratory worker, required intubation; CXR prior to cath showed [...] while intubated - restart tube feeds - LICENSING SPECIALIST eval - remove NGT and restart [...] HEME/ONC #Anemia Hgb 9.5 on admission to [facility] and 7.8 on arrival to CCU. [...] A/C was because he started plavix and membership assistant decided to stop Eliquis. DIAGNOSTIC REVIEW Blood [...] plan with the ICU team and other medical/recruitment consultant staff. * Bobby Mary MD - [...] 93% I/O last 2 completed shifts: In: 82919.4 [I.V.:1014.4; Other:38715; NG/GT:190; IV Piggyback:420] Out: 86220 [Other:44665] I/O this shift: In: 480.2 [I.V.:480.2] Out: [...] DAILY PROGRESS Patient: Adelia Garvin Jr. Room: [id number] Date: 06/19/2022 Summary Statement: Adelia Garvin Jr. is a 51 y.o. male with a history of CHF (EF 50% 2016), Afib (not on AC), HTN, CAD s/p stent 04/06 and 3 stent 12/07, T1DM (insulin pump at home), ESRD on PD, HLD, GERD, hyperparathyroidism, DDD, OA, gout, BEN on CPAP initially presented to OSH for n/v and chest pain, transferred to [facility] for LHC/PCI, who presented to CCU [...] 06/19/2022 0500 Gross per 24 hour Intake 77410.7 ml Output 85416 ml Net -2782.3 ml Ventilator Settings: 20/500/80/12 [...] in anterior wall and anterior septem sugegsting CAD/[place] in the LAD territory. LVEF is in [...] gout, BEN on CPAP initially presented to [facility] for n/v and chest pain, transferred to [facility] for LHC/PCI, who presented to the [...] Pt became acutely hypoxic while in the laboratory worker, required intubation; CXR prior to cath showed [...] HEME/ONC #Anemia Hgb 9.5 on admission to [facility] and 7.8 on arrival to CCU. [...] plan with the ICU team and other medical/recruitment consultant staff. * Jeffrey Green MD - 06/18/2022 6:17 AM CDT CCU DAILY PROGRESS Patient: Adelia Garvin Jr. Room: [place] [id number]/[place] [id number] Date: 06/18/2022 Summary Statement: Adelia Garvin Jr. is a 51 y.o. male with a history of CHF (EF 50% 2016), Afib (not on AC), HTN, CAD s/p stent 04/06 and 3 stent 12/07, T1DM (insulin pump at home), ESRD on PD, HLD, GERD, hyperparathyroidism, DDD, OA, gout, BEN on CPAP initially presented to OSH for n/v and chest pain, transferred to [facility] for LHC/PCI, who presented to CCU [...] 06/18/2022 0500 Gross per 24 hour Intake 91865.41 ml Output 93806 ml Net 897.41 ml Ventilator Settings: 20/500/80/12 [...] in anterior wall and anterior septem sugegsting CAD/[place] in the LAD territory. LVEF is in [...] gout, BEN on CPAP initially presented to [facility] for n/v and chest pain, transferred to [facility] for LHC/PCI, who presented to the [...] Pt became acutely hypoxic while in the laboratory worker, required intubation; CXR prior to cath showed [...] HEME/ONC #Anemia Hgb 9.5 on admission to [facility] and 7.8 on arrival to CCU. [...] plan with the ICU team and other medical/recruitment consultant staff. * Jeffrey Green MD - 06/17/2022 6:39 AM CDT CCU DAILY PROGRESS Patient: Adelia Garivn Jr. Room: [place] [id number] Date: 06/17/2022 Summary Statement: Adelia Garvin Jr. is a 51 y.o. male with a history of CHF (EF 50% 2016), Afib (not on AC), HTN, CAD s/p stent 04/06 and 3 stent 12/07, T1DM (insulin pump at home), ESRD on PD, HLD, GERD, hyperparathyroidism, DDD, OA, gout, BEN on CPAP initially presented to OSH for n/v and chest pain, transferred to [facility] for LHC/PCI, who presented to CCU [...] in anterior wall and anterior septem sugegsting CAD/[place] in the LAD territory. LVEF is in [...] gout, BEN on CPAP initially presented to [facility] for n/v and chest pain, transferred to [facility] for LHC/PCI, who presented to the [...] Pt became acutely hypoxic while in the laboratory worker, required intubation; CXR prior to cath showed [...] HEME/ONC #Anemia Hgb 9.5 on admission to [facility] and 7.8 on arrival to CCU. [...] plan with the ICU team and other medical/recruitment consultant staff. * Tyra De La Torre MD - 06/16/2022 5:49 AM CDT CCU DAILY PROGRESS Patient: Adelia Garvin Jr. Room: [id number] Date: 06/16/2022 Summary Statement: Adelia Garvin Jr. is a 51 y.o. male with a history of CHF (EF 50% 2016), Afib (not on AC), HTN, CAD s/p stent 04/06 and 3 stent 12/07, T1DM (insulin pump at home), ESRD on PD, HLD, GERD, hyperparathyroidism, DDD, OA, gout, BEN on CPAP initially presented to OSH for n/v and chest pain, transferred to [facility] for LHC/PCI, who presented to CCU [...] in anterior wall and anterior septem sugegsting CAD/[place] in the LAD territory. LVEF is in [...] gout, BEN on CPAP initially presented to [facility] for n/v and chest pain, transferred to [facility] for LHC/PCI, who presented to the [...] Pt became acutely hypoxic while in the laboratory worker, required intubation; CXR prior to cath showed [...] HEME/ONC #Anemia Hgb 9.5 on admission to [facility] and 7.8 on arrival to CCU. [...] plan with the ICU team and other medical/recruitment consultant staff. * Flax, Brekk - 06/15/2022 4:15 PM CDT 06/15/22 1614 PT Last Visit PT Missed Visit Reason Sedated (pt intubated/sedated) Recommendation/Plan PT Frequency Monitor status PT - Next Appointment 06/17/22 Cosigned by Faby Poole, PT at 06/15/2022 4:45 PM CDT * Tyra De La Torre MD - 06/15/2022 5:23 AM CDT CCU DAILY PROGRESS Patient: Adelia Garvin Jr. Room: [place] [id number] Date: 06/15/2022 Summary Statement: Adelia Garvin Jr. is a 51 y.o. male with a history of CHF (EF 50% 2016), Afib (not on AC), HTN, CAD s/p stent 04/06 and 3 stent 12/07, T1DM (insulin pump at home), ESRD on PD, HLD, GERD, hyperparathyroidism, DDD, OA, gout, BEN on CPAP initially presented to OSH for n/v and chest pain, transferred to [facility] for LHC/PCI, who presented to CCU [...] in anterior wall and anterior septem sugegsting CAD/[place] in the LAD territory. LVEF is in [...] gout, BEN on CPAP initially presented to [facility] for n/v and chest pain, transferred to [facility] for LHC/PCI, who presented to the [...] Pt became acutely hypoxic while in the laboratory worker, required intubation; CXR prior to cath showed [...] HEME/ONC #Anemia Hgb 9.5 on admission to [facility] and 7.8 on arrival to CCU. [...] plan with the ICU team and other medical/recruitment consultant staff. * Lavern Morrison MD - 06/14/2022 4:39 PM CDT CCU DAILY PROGRESS Patient: Adelia Garvin Jr. Room: [id number] Date: 06/14/2022 Summary Statement: Adelia Garvin Jr. is a 51 y.o. male with a history of CHF (EF 50% 2016), Afib (not on AC), HTN, CAD s/p stent 04/06 and 3 stent 12/07, T1DM (insulin pump at home), ESRD on PD, HLD, GERD, hyperparathyroidism, DDD, OA, gout, BEN on CPAP initially presented to OSH for n/v and chest pain, transferred to [facility] for LHC/PCI, who presented to CCU [...] in anterior wall and anterior septem sugegsting CAD/[place] in the LAD territory. LVEF is in normal range 56%. Impaired LV relaxation. LA is mildly dilated. Mildly dilated RV cavity size with normal RV systolic function. Mildly dilated RA size. Normal Inferior vena cava. Normal aortic root. Mils to mod AR. Trace TR. PASP= 23 mm Hg +RAP. ASSESSMENT and PLAN Adelia Gravin Jr. is a 51 y.o. male with a history of CHF (EF 50% 2017), Afib (not on AC), HTN, CAD s/p stent 04/06 and 3 stent 12/07, T1DM (insulin pump at home), ESRD on PD, HLD, GERD, hyperparathyroidism, DDD, OA, gout, BEN on CPAP initially presented to [facility] for n/v and chest pain, transferred to [facility] for LHC/PCI, who presented to the [...] Pt became acutely hypoxic while in the laboratory worker, required intubation; CXR prior to cath showed [...] HEME/ONC #Anemia Hgb 9.5 on admission to [facility] and 7.8 on arrival to CCU. [...] plan with the ICU team and other medical/recruitment consultant staff. * Payam Johnson, BAR ATTENDANT - 06/14/2022 11:56 AM CDT 06/14/22 1135 [...] DAILY PROGRESS Patient: Adelia Garvin Jr. Room: [id number] Date: 06/13/2022 Summary Statement: Adelia Garvin Jr. is a 51 y.o. male with a history of CHF (EF 50% 2017), Afib (not on AC), HTN, CAD s/p stent 04/06 and 3 stent 12/07, T1DM (insulin pump at home), ESRD on PD, HLD, GERD, hyperparathyroidism, DDD, OA, gout, BEN on CPAP initially presented to OSH for n/v and chest pain, transferred to [facility] for LHC/PCI, who presented to CCU [...] EXC ART mmol/L 2 O2 SAT ART (YUEN) % 92 Screening Labs: Iron Studies Recent [...] in anterior wall and anterior septem sugegsting CAD/[place] in the LAD territory. LVEF is in [...] gout, BEN on CPAP initially presented to [facility] for n/v and chest pain, transferred to [facility] for LHC/PCI, who presented to the [...] Pt became acutely hypoxic while in the laboratory worker, required intubation; CXR prior to cath showed [...] HEME/ONC #Anemia Hgb 9.5 on admission to [facility] and 7.8 on arrival to CCU. [...] plan with the ICU team and other medical/recruitment consultant staff. * Olga Bernstein, PT - 06/13/2022 9:14 AM CDT Physical Therapy 06/13/22 0913 General PT Missed Visit Reason Bedrest;Sedated (impella, CVVHD) Recommendation/Plan PT Frequency Monitor status PT - Next Appointment 06/15/22 * Jeffrey Green MD - 06/12/2022 4:58 AM CDT CCU DAILY PROGRESS Patient: Adelia Garvin Jr. Room: [place] [id number] Date: 06/12/2022 Summary Statement: Adelia Garvin Jr. is a 51 y.o. male with a history of CHF (EF 50% 2016), Afib (not on AC), HTN, CAD s/p stent 04/06 and 3 stent 12/07, T1DM (insulin pump at home), ESRD on PD, HLD, GERD, hyperparathyroidism, DDD, OA, gout, BEN on CPAP initially presented to OSH for n/v and chest pain, transferred to [facility] for LHC/PCI, who presented to CCU [...] in anterior wall and anterior septem sugegsting CAD/[place] in the LAD territory. LVEF is in [...] gout, BEN on CPAP initially presented to [facility] for n/v and chest pain, transferred to [facility] for LHC/PCI, who presented to the [...] Pt became acutely hypoxic while in the laboratory worker, required intubation; CXR prior to cath showed [...] HEME/ONC #Anemia Hgb 9.5 on admission to [facility] and 7.8 on arrival to CCU. [...] plan with the ICU team and other medical/recruitment consultant staff. * Jeffrey Green MD - 06/11/2022 2:46 AM CDT CCU DAILY PROGRESS Patient: Adelia Garvin Jr. Room: [id number] Date: 06/11/2022 Summary Statement: Adelia Garvin Jr. is a 51 y.o. male with a history of CHF (EF 50% 2016), Afib (not on AC), HTN, CAD s/p stent 04/06 and 3 stent 12/07, T1DM (insulin pump at home), ESRD on PD, HLD, GERD, hyperparathyroidism, DDD, OA, gout, BEN on CPAP initially presented to OSH for n/v and chest pain, transferred to [facility] for LHC/PCI, who presented to CCU s/p complex PCI with impella and intubated. SUBJECTIVE Overnight: - Impella removed -[place] removed -Veletri weaned off -Tube feeds started [...] in anterior wall and anterior septem sugegsting CAD/[place] in the LAD territory. LVEF is in [...] gout, BEN on CPAP initially presented to [facility] for n/v and chest pain, transferred to [facility] for LHC/PCI, who presented to the [...] Pt became acutely hypoxic while in the laboratory worker, required intubation; CXR prior to cath showed [...] HEME/ONC #Anemia Hgb 9.5 on admission to [facility] and 7.8 on arrival to CCU. [...] plan with the ICU team and other medical/recruitment consultant staff. * Tyra De La Torre MD - 06/10/2022 12:46 PM CDT CCU DAILY PROGRESS Patient: Adelia Garvin Jr. Room: [facility] CARDIAC CATH ROOM/NO* Date: 06/10/2022 Summary [...] for n/v and chest pain, transferred to [facility] for LHC/PCI, who presented to CCU [...] in anterior wall and anterior septem sugegsting CAD/[place] in the LAD territory. LVEF is in [...] gout, BEN on CPAP initially presented to [facility] for n/v and chest pain, transferred to [facility] for LHC/PCI, who presented to the [...] Pt became acutely hypoxic while in the laboratory worker, required intubation; CXR prior to cath showed [...] HEME/ONC #Anemia Hgb 9.5 on admission to [facility] and 7.8 on arrival to CCU. [...] plan with the ICU team and other medical/recruitment consultant staff. * Lavern Morrison MD - 06/09/2022 6:31 AM CDT CCU DAILY PROGRESS Patient: Adelia Garvin Jr. Room: [id number] Date: 06/09/2022 Summary Statement: Adelia Garvin Jr. is a 51 y.o. male with a history of CHF (EF 50% 2016), Afib (not on AC), HTN, CAD s/p stent 04/06 and 3 stent 12/07, T1DM (insulin pump at home), ESRD on PD, HLD, GERD, hyperparathyroidism, DDD, OA, gout, BEN on CPAP initially presented to OSH for n/v and chest pain, transferred to [facility] for LHC/PCI, who presented to CCU [...] in anterior wall and anterior septem sugegsting CAD/[place] in the LAD territory. LVEF is in [...] gout, BEN on CPAP initially presented to [facility] for n/v and chest pain, transferred to [facility] for LHC/PCI, who presented to the [...] Pt became acutely hypoxic while in the laboratory worker, required intubation; CXR prior to cath showed [...] HEME/ONC #Anemia Hgb 9.5 on admission to [facility] and 7.8 on arrival to CCU. [...] plan with the ICU team and other medical/recruitment consultant staff. * Roberto Carlos Newberry, PT - 06/08/2022 3:00 PM CDT Physical Therapy 06/08/22 1500 General PT Missed Visit Reason Sedated;Other (comment) (pt intubated, sedated, primaflex CVVHD.) * Marcelina Pickard, ROBERTO - 06/08/2022 7:58 AM CDT PROCEDURE: [facility] w/ complex PCI and Impella CP placement [...] statin therapy. Follow up appt with primary membership assistant, Dr Petit in 2-4 weeks post discharge. KATIE Dos Santos-C Interventional Cardiology Nurse Practitioner [phone] Please refer to [facility] Blood [...] - CCU Night Call Fellow * Lavern Morrsion MD - 06/08/2022 3:06 AM CDT CCU DAILY PROGRESS Patient: Adelia Garvin Jr. Room: [place] [id number] Date: 06/08/2022 Summary Statement: Adelia Garvin Jr. is a 51 y.o. male with a history of CHF (EF 50% 2016), Afib (not on AC), HTN, CAD s/p stent 04/06 and 3 stent 12/07, T1DM (insulin pump at home), ESRD on PD, HLD, GERD, hyperparathyroidism, DDD, OA, gout, BEN on CPAP initially presented to OSH for n/v and chest pain, transferred to [facility] for LHC/PCI, who presented to CCU [...] 06/08/2022 0500 Gross per 24 hour Intake 45722.23 ml Output 22363 ml Net -328.77 ml Ventilator Settings: 20/500/80/12 [...] gout, BEN on CPAP initially presented to [facility] for n/v and chest pain, transferred to [facility] for LHC/PCI, who presented to the [...] Pt became acutely hypoxic while in the laboratory worker, required intubation; CXR prior to cath showed [...] HEME/ONC #Anemia Hgb 9.5 on admission to [facility] and 7.8 on arrival to CCU. [...] plan with the ICU team and other medical/recruitment consultant staff. * Jess Redmond PT - 06/07/2022 11:48 AM CDT Physical Therapy 06/07/22 1148 General PT Missed Visit Reason Procedure/testing/appointment (Account Manager Sales Representative) * Conrad Akers MD - 06/07/2022 9:32 AM CDT MICU Attending Daily Note Name: Adelia Garvin Jr. Bed: [id number] : 1970 Age: 51 y.o. male Admit: [...] pre-medications for contrast allergy in anticipation of [facility] today. Scheduled Meds:amLODIPine, 10 mg, oral, Daily [...] 06/07/2022 0800 Gross per 24 hour Intake 22206.7 ml Output 08952 ml Net -1579.3 ml 24hr Min/Max: Temp [...] this morning, Mr. Garvin was taken for [facility] but developed profound hypoxemia requiring intubation. Per discussion with Cardiology, he will be undergoing Impella placement and will be transferred to the CCU. This was discussed directly with the CCU attending as well. The plan below was formulated prior to these events. NSTEMI In the setting of known coronary disease, cholecystitis, ESRD with poor clearance [facility] today, has received contrast allergy pre-medication Plavix [...] performed whenever feasible but would not delay [facility] For this Continue meropenem for gram negative [...] plan with the ICU team and other medical/recruitment consultant staff. Conrad Akers MD Pulmonary/Critical Care * Girish Kirk MD - 06/07/2022 7:56 AM CDT [facility] Acute and Critical Care Surgery (ACCS) Consult [...] infusion (premix), 0-400 mcg/min, intravenous, Titrated, Dewey Prara MD, Stopped at 06/05/222099 nystatin 100,000 unit/mL [...] Is&Os: I/O last 2 completed shifts: In: 72002.3 [P.O.:780; I.V.:444.3; Other:36635; IV Piggyback:100] Out: 94711 [Other:02714] No intake/output data recorded. Physical Exam: BP [...] evaluation. The pelvis is excluded from the abjaw-wz-vdzm and unavailable for interpretation. A rounded density [...] (HCC) Chronic kidney disease, stage III (moderate) ([facility]) Benign essential hypertension Hyperlipidemia 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[place] artery of [place] heart with stable angina pectoris (CMS/HCC) ([facility]) History of coronary artery stent placement Hypertension Diabetes mellitus (HCC) Snoring Hypersomnia Chronic kidney disease Pain of finger Macular ischemia Combined forms of age-related cataract Proliferative diabetic retinopathy associated with type 2 diabetes mellitus (CMS/HCC) (HCC) Abnormal cardiovascular stress test Angina pectoris ([facility]) Adelia Garvin Jr. is a C/F CHOLECYSTITIS 51M w/PMHB CHF (EF 50% 2016), Afib (not on AC), HTN, CAD s/p stent 04/06 and 3 stent 12/07, T1DM (insulin pump at home), ESRD on PD, HLD, GERD, hyperparathyroidism, DDD, OA, gout, BEN on CPAP initially[facility]ed to [facility] for generalized weakness, n/v, diarrhea, and chest pain, transferredto [facility] on 06/05 for LHC/PCI scheduled for 06/06. Pt was found to have an NSTEMI at OSH and was continued on hep gtt, asa81, plavix at [facility]. He was transferred to MICU after [...] to the primary team. Please contact the [facility] Inpatient Consult Service at the number [...] patient today, as he was in the laboratory worker upon my arrival. Later chart reviewrevealed a [...] MD Instructor, Acute and Critical Care Surgery [facility] [employer] * Amira Davenport RN - 06/06/2022 12:04 PM CDT CM Initial Assessment Interview Note Information Obtained From: Patient (06/06/22 115) Admission Source: from [facility] Impression: Hx - CHF, Afib, [...] (name, phone, availablity): Brother Jude Gallardo - [phone] Home Care Services: No Durable Medical Equipment: [...] Collaboration with patient, MD, direct care nurse, Web Graphic Designer, and other members of the health care team to assure needed interventions completed. 2. Return patient to optimal level of self-care post discharge. 3. Fisher Eel will follow for Discharge Planning - interventions [...] Daily Note Name: Adelia Garvin Jr. Bed: [id number] : 1970 Age: 51 y.o. male Admit: [...] 06/06/2022 0900 Gross per 24 hour Intake 78476.47 ml Output 11206 ml Net -2112.53 ml 24hr Min/Max: Temp [...] EKG/Min 73 BPM Atrial Rate 73 BPM OK-Interval (MSEC) 184 ms QRS-Interval (MSEC) 106 ms QT-Interval (MSEC) 442 ms QTc 486 ms P [place] 49 degrees R [place] -33 degrees T [place] 87 degrees Diagnosis Normal sinus rhythm Possible [...] Magnesium 2.1 1.4 - 2.5 mg/dL POCT HM-J-ZOZ-GLU-HCT, WB - ISTAT Collection Time: 06/05/22 3:22 [...] findings include: Troponin [place] at 4800 NT-proBNP 22730 CXR with bilateral fluffy opacities RUQ US [...] control Wean O2 as tolerated, currently on [facility] Hypertensive urgency/emergency With associated flash pulmonary edema [...] plan with the ICU team and other medical/recruitment consultant staff. Conrad Akers MD Pulmonary/Critical Care [...] REMOVE PERC ARTERIAL VAD (IMPELLA), DIFFERENT SESSION [id number] Cosigned by Champ Osborne MD PhD at 06/10/2022 10:55 AM CDT Source Note - Jeffrey Green MD - 06/07/2022 2:03 PM CDT . CCU ADMISSION HISTORY AND PHYSICAL Patient: Adelia Garvin Jr. Room: [facility] CARDIAC CATH ROOM/NO* Date: 06/07/2022 SUBJECTIVE [...] gout, BEN on CPAP initially presented to [facility] for n/v and chest pain, transferred to [facility] for LHC/PCI, now presenting to CCU s/p complex PCI with impella and intubated. At the OSH he presented with 3d generalized weakness, chills, ROONEY, n/v, chest pain relieved by sublingual ntg. His labs were notable for trop 1.0-->1.09-->0.729, BNP 16817. He had a CT CAP showing cholelithiasis [...] circumflex as optimal treatment, prompting transfer to [place]. He arrived at [place] 06/05. EKG showed sinus bradycardia, 1st deg [...] Diabetes mellitus type I (HCC) Dialysis patient ([facility]) (HCC) ESRD on dialysis ([facility]) ([facility]) GERD (gastroesophageal reflux disease) Hyperlipidemia [...] 06/07/2022 1100 Gross per 24 hour Intake 79830.04 ml Output 11586 ml Net -1701.96 ml REVIEW OF LABORATORY [...] gout, BEN on CPAP initially presented to [facility] for n/v and chest pain, transferred to [facility] for LHC/PCI, now presenting to CCU [...] Pt became acutely hypoxic while in the laboratory worker, required intubation; CXR prior to cath showed [...] AND PHYSICAL Patient: Adelia Garvin Jr. Room: [facility] C[facility] CATH ROOM/NO* Date: 06/07/2022 SUBJECTIVE [...] gout, BEN on CPAP initially presented to [facility] for n/v and chest pain, transferred to [facility] for LHC/PCI, now presenting to CCU s/p complex PCI with impella and intubated. At the OSH he presented with 3d generalized weakness, chills, ROONEY, n/v, chest pain relieved by sublingual ntg. His labs were notable for trop 1.0-->1.09-->0.729, BNP 82034. He had a CT CAP showing cholelithiasis [...] circumflex as optimal treatment, prompting transfer to [place]. He arrived at [place] 06/05. EKG showed sinus bradycardia, 1st deg [...] Diabetes mellitus type I (HCC) Dialysis patient ([facility]) (HCC) ESRD on dialysis ([facility]) ([facility]) GERD (gastroesophageal reflux disease) Hyperlipidemia [...] 06/07/2022 1100 Gross per 24 hour Intake 68044.04 ml Output 47970 ml Net -1701.96 ml REVIEW OF LABORATORY [...] gout, BEN on CPAP initially presented to [facility] for n/v and chest pain, transferred to [facility] for LHC/PCI, now presenting to CCU [...] 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 [place]-Liv catheter reviewed that shows adequate cardiac output [...] plan with the ICU team and other medical/recruitment consultant staff. * Marcelina Pickard NP - 06/07/2022 10:26 AM CDT I have reviewed the H&P, examined the patient, and endorse the findings as written. Plan of Care : Based on the above findings, I consider Adelia Garvin Jr. to be an acceptable risk for : Procedure(s): PCI MARIELLA MAJOR CORONARY C9600 - 07716 Cosigned by Champ Osborne MD PhD at [...] gout, BEN on CPAP initially presented to [facility] for generalized weakness, n/v, diarrhea, and chest pain, transferred to [facility] for LHC/PCI scheduled for 06/06, and presenting to the MICU after he was placed on NIPPV during an ACT for hypoxic respiratory failure. At OSH, pt presented w 3d of generalized weakness, loss of appetite, chills, ROONEY, n/v/d, and intermittent chest pain relieved by sublingual ntg. Labs at OSH notable for WBC 6.1, hgb 10.2, plt 206, trop I 1.0->1.09->0.729, BNP 08115. CTAP cholelithiasis w mild gallbladder distension, airspace [...] doneat tertiary center. Pt was transferred to [facility] floor overnight. Labs notable for Na [...] (coronary artery disease) Chest pain Diabetes mellitus ([facility]) Diabetes mellitus type I ([facility] Dialysis patient ([facility]) ESRD on dialysis ([facility]) GERD (gastroesophageal reflux disease) Hyperlipidemia [...] 06/04/22699 - 06/05/2265806/05/22699 - 06/06/22 0659 Shift 0746-4899 4663-1497 24 Hour Total 3481-6710 7358-4776 24 Hour Total INTAKE P.O. 60 60 Other 13883 07601 Shift Total(mL/kg) 16035(83.5) 46960(83.5) OUTPUT Urine 0 0 Other 65134 00951 Stool 0 0 Shift Total(mL/kg) 24338(87.7) 44138(87.7) NET -603 -603 Weight (kg) 142 142 [...] Magnesium 2.1 1.4 - 2.5 mg/dL POCT VL-U-UFT-GLU-HCT, WB - ISTAT Collection Time: 06/05/22 3:22 [...] to OSH with NSTEMI, CAP, transferred to [facility] for LHC/PCI scheduled for 06/06, andpresenting [...] gout, BEN on CPAP initially presented to [facility] for generalized weakness, n/v, diarrhea, and chest pain, transferred to [facility] for LHC/PCI scheduled for 06/06, and presenting to the MICU after he was placed on NIPPV during an ACT for hypoxic respiratory failure. At OSH, pt presented w 3d of generalized weakness, loss of appetite, chills, ROONEY, n/v/d, and intermittent chest pain relieved by sublingual ntg. Labs at OSH notable for WBC 6.1, hgb 10.2, plt 206, trop I 1.0->1.09->0.729, BNP 87416. CTAP cholelithiasis w mild gallbladder distension, airspace [...] doneat tertiary center. Pt was transferred to [facility] floor overnight. Labs notable for Na [...] (coronary artery disease) Chest pain Diabetes mellitus ([facility]) Diabetes mellitus type I ([facility]) Dialysis patient ([facility]) ESRD on dialysis ([facility]) GERD (gastroesophageal reflux disease) Hyperlipidemia [...] 0659 06/05/22 0700 - 06/06/22 0659 Shift 8763-3867 2623-4697 24 Hour Total 1404-0917 5070-2050 24 Hour Total INTAKE P.O. 60 60 Other 96560 03892 Shift Total(mL/kg) 03212(83.5) 89011(83.5) OUTPUT Urine 0 0 Other 21354 39115 Stool 0 0 Shift Total(mL/kg) 41825(87.7) 25990(87.7) NET -603 -603 Weight (kg) 142 142 [...] Magnesium 2.1 1.4 - 2.5 mg/dL POCT CZ-A-FBO-GLU-HCT, WB - ISTAT Collection Time: 06/05/22 3:22 [...] to OSH with NSTEMI, CAP, transferred to [facility] for LHC/PCI scheduled for 06/06, andpresenting [...] plan with the ICU team and other medical/recruitment consultant staff. * Russ Milner MD - [...] gout, BEN on CPAP initially presented to [facility] for generalized weakness, n/v, diarrhea, and chest pain now being transferred for LHC/PCI 06/06. Patient initially presented with generalized weakness for the last 3 days. He then began to endorsen/v and diarrhea as well as chest pain which waxes and wanes and improves with sublingual ntg. He also reported decreased appetite, chills, dyspnea with exertion, and nonproductive cough. Patient follows with [facility] for cardiology. He did have angiogram in 2020 which showed patent stents in RCA and PDA, previously jailed posterolateral occluded and 50% stenosis in branch of OM1. Initial labs on 06/02 significant for Na 136, K 3, Cr 5.90, WBC 6.1, Hgb 10.2, Plt 206, tbili 1.3, AST 29, ALT 33, Alk Phos 105, Lipase 65, troponin I 1.0->1.09->0.729, BNP 60542. Covid, influenza negative. CXR showed left basilar [...] gout, BEN on CPAP initially presented to [facility] for generalized weakness, n/v, diarrhea, andchest pain now being transferred for LHC/PCI 06/06. #CHF #CAD s/p PCI 03/2017 (RCA) and 3 stent 12/07 (prox, mid, and distal RCA) OSH txf for LHC/PCI w Dr. Osborne 06/06 at 10:30am. [facility]. He did have angiogram in 2020 which showed patent stents in RCA and PDA, previouslyjailed posterolateral occluded and 50% stenosis in branch of OM1. Endorsing chest pain iso n/v/diarrhea/ROONEY. Elevated troponin I 1.0->1.09->0.729, BNP 42600. EKG with sinus rhythm with left anterior [...] pain, no changes in EKG->restarted heparin gtt -[facility] 06/06 at 10:30am (NPO MN) -heparin gtt [...] white count, elevated troponin I 1.0->1.09->0.729, BNP 33975, lipase 65. Covid, influenza negative. CXR showed [...] 24h UF 1074 ml Won Navarro MD director maternal child Division of Nephrology NEPHROLOGY PROCEDURE NOTE Date [...] 116.1 kg (255 lb 15.3 oz) Height: BAR ATTENDANT vascular access: PD catheter Other findings: Date 06/25/22699 - 06/26/2265806/26/22699 - 06/27/22658 Shift 2771-3134 4488-5422 24 Hour Total 0324-5554 9526-0192 24 Hour Total INTAKE P.O. 360 360 Other 42343 86326 Shift Total(mL/kg) 360(3) 47421(105.7) 98112(108.8) OUTPUT Urine(mL/kg/hr) 100(0.1) 100(0) 300 300 Other 10193 01434 Shift Total(mL/kg) 100(0.8) 88071(119) 76712(119.9) 300(2.6) 300(2.6) NET 260 -1547 -1287 -300 -300 Weight (kg) 119.7 116.1 116.1 116.1 116.1 116.1 I have reviewed current medications and the following labs. aspirin, 81 mg, oral, Daily atorvastatin, 80 mg, oral, Daily calcitRIOL, 0.25 mcg, oral, Daily calcium acetate(phosphat bind), 667 mg, oral, QID clopidogreL, 75 mg, oral, Daily ezetimibe, 10 mg, oral, Daily heparin, 5,000 Units, subcutaneous, Q8H [facility] [START ON 06/27/2022] insulin glargine, 35 Units, [...] FERRITIN 2,062 (H) 06/07/2022 Won Navarro MD director maternal child Nephrology Division E OBIA SOLUTION ARCHITECT * Aleida Lambert, LICENSING SPECIALIST - 06/21/2022 2:02 PM CDTAssociated Order(s): LICENSING SPECIALIST EVALUATE AND TREAT VIDEOFLUOROSCOPIC SWALLOW STUDY [...] reported General Information Adelia Garvin Jr. 06/21/22 LICENSING SPECIALIST Received On: 06/21/22 General Observations: presents [...] Administered: Thin liquids (via spoon & straw), Idamay thickened liquids (via spoon & straw), Purees, Honey thickened liquids via spoon, Solids. Patient took large sips requiring more than 1 swallow even when cued for small sip. Administered consistencies contain barium product. Thin Liquids: Laryngeal Penetration: Present Aspiration Present: No Penetration Aspiration Scale-Thin: 4-Material enters the airway, contacts the vocal folds and is ejected from the airway Idamay Thickened Liquids: Laryngeal Penetration: Present Aspiration Present: No Penetration Aspiration Scale-Idamay: 2-Material enters the airway, remains above the [...] treatment goals and details, if indicated. Plan LICENSING SPECIALIST Frequency of Services: 2-3x/wk LICENSING SPECIALIST Recommendation (Add'l Services): Inpatient Rehab Facility Next Visit Plan: treatment/therapy Additional Referrals: none at this time Discharge Summary Statement If this is the last swallow therapy visit, this serves as the discharge summary. 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 Aj Poe MD Specifications Checker, PGY-5 Cosigned by Rufino Flores MD at 06/20/2022 9:33 AM CDT * Lavern Morrison MD - 06/07/2022 10:17 PM CDTAssociated Order(s): Arterial Line Insertion Post-Procedure Diagnose(s): Hypotension, unspecified hypotension type Arterial Line Insertion Date/Time: 06/07/2022 10:17 PM Performed by: Lavern Morrison MD Authorized by: Lavern Morrison MD [place] Protocol: RN Notified of Procedure: yes Informed [...] and matched to patient identification: n/a Responsible republican for transporting specimen(s) to lab determined: n/a [...] for n/v and chest pain, transferred to [facility] for LHC/PCI, who presented to CCU s/p complex PCI with impella and intubated. Now extubated, tolerating PO intake, on home PD. Arrived at [place] from OSH on 06/05. EKG showed sinus [...] Diabetes mellitus type I (HCC), Dialysis patient ([facility]) (HCC), ESRD on dialysis ([facility]) (HCC), GERD (gastroesophageal reflux disease), Hyperlipidemia, Hypertension, [...] 06/23/2022 1747 Gross per 24 hour Intake 80339 ml Output 24978 ml Net -2325 ml Physical Exam: General: [...] ESRD on PD who was transferred to [facility] for an impella-supported complex PCI on [...] 5PM or on weekends, please page the telephone mechanic precision agriculture specialist with any questions or concerns. Will Villavicencio MD Specifications Checker 5:59 PM 06/23/22 Cosigned by Musa Fernando MD at 06/23/2022 7:53 PM CDT Associated attestation - Musa Fernando MD - 06/23/2022 7:53 PM CDT 06/23/2022 I have personally seen and examined this pt with resident/Fellow/HEEL EMERY BUFFER . I have reviewed History/Physical exam and plan for management. I agree with it . Musa Fernando M.D., F.A.CSharathC. liquid natural gas plant operator [facility] [employer] [facility]. [place] This note contains information and [...] about verbage above please contact me at [phone]. . * Mckenzie Phelan, GAVIN - 06/15/2022 [...] gout, BEN on CPAP initially presented to [facility] for generalized weakness, n/v, diarrhea, and chest pain now being transferred for LHC/PCI 06/06. Objective Past Medical History: Diagnosis Date CAD (coronary artery disease) Chest pain Diabetes mellitus (HCC) Diabetes mellitus type I (HCC) Dialysis patient ([facility]) (HCC) ESRD on dialysis ([facility]) (HCC) GERD (gastroesophageal reflux disease) [...] of Weight Used for Estimated Protein : [place] Protein Needs Based on g/k.7 Total Protein [...] Evaluation: TF tolerance Mckenzie Phelan RDN LD [phone] * Sandrine Myers MD - 06/15/2022 10:42 [...] Pulmonary will continue to follow. Please call precision agriculture specialist pulmonary consult fellow with additional questions or [...] gout, BEN on CPAP initially presented to [facility] for generalized weakness, n/v, diarrhea, and chest pain now being transferred for LHC/PCI 06/06. Objective Past Medical History: Diagnosis Date CAD (coronary artery disease) Chest pain Diabetes mellitus (HCC) Diabetes mellitus type I (HCC) Dialysis patient ([facility]) (HCC) ESRD on dialysis ([facility]) (HCC) GERD (gastroesophageal reflux disease) [...] of Weight Used for Estimated Protein : [place] Protein Needs Based on g/k.5 Total Protein [...] Evaluation: TF tolerance Mckenzie Phelan RDN LD Log Data Technician RD number [phone] * Ronny Vasquez - 06/10/2022 2:21 PM [...] gout, BEN on CPAP initially presented to [facility] for generalized weakness, n/v, diarrhea, [...] TF tolerance Ronny Vasquez MS RDN LD Log Data Technician RD number [phone] * Patricio Pearce MD - 06/09/2022 1:10 [...] failure. Briefly, the patient was transferred to [facility] for complex PCI for NSTEMI on 06/04. He was initially on the medicine floor then went into flash pulmonary edema in setting of hypertension and NSTEMI and was transferred to the MICU for NPPV. CXR showed significant pulmonary edema. Labs notable for BNP 26749, trops 4000. He was also found to [...] dilated RV with normal RV systolic function. [place] numbers from earlier today indicat PA 36/17, [...] (coronary artery disease) Chest pain Diabetes mellitus ([facility]) Diabetes mellitus type I (HCC) Dialysis patient ([facility]) (HCC) ESRD on dialysis ([facility]) ([facility]) GERD (gastroesophageal reflux disease) Hyperlipidemia [...] CDTAssociated Order(s): IP CONSULT TO GENERAL SURGERY [facility] Acute Care Surgery Consult Note Requesting Consult: Conrad Akers MD Reason for Consult: cholecystitis Assessment: 51M w/PMHB CHF (EF 50% 2016), Afib (not on AC), HTN, CAD s/p stent 04/06 and 3 stent 12/07, T1DM (insulin pump at home), ESRD on PD, HLD, GERD, hyperparathyroidism, DDD, OA, gout, BEN on CPAP initially[facility]ed [facility] for generalized weakness, n/v, diarrhea, and chest pain, transferredto [facility] on 06/05 for LHC/PCI scheduled for 06/06. Pt was found to have an NSTEMI at OSH and was continued on hep gtt, asa81, plavix at [facility]. He was transferred to MICU after [...] for further evaluation of GB pathology - [facility] will continue to follow Plan above has been discussed with attending Dr. Gamez. Please contact [facility] Inpatient Consults at with any questions [...] OA, gout, BEN on CPAP initially[facility] for generalized weakness, n/v, diarrhea, and chest pain, transferredto [facility] on 06/05 for LHC/PCI scheduled for 06/06. Pt was found to have an NSTEMI at OSH and was continued on hep gtt, asa81, plavix at [facility]. He was transferred to MICU after [...] (coronary artery disease) Chest pain Diabetes mellitus ([facility]) Diabetes mellitus type I ([facility]) Dialysis patient ([facility]) ESRD on dialysis ([facility]) GERD (gastroesophageal reflux disease) Hyperlipidemia [...] evaluation. The pelvis is excluded from the [id number]-sczm and unavailable for interpretation. A rounded density [...] only and have not been reviewed by [facility]. There will be no report generated by a [facility] Radiologist. XR Outside Reference Result Date: 06/05/2022 These images are for Reference purposes only and have not been reviewed by [facility]. There will be no report generated by a [facility] Radiologist. US RUQ Result Date: 06/06/2022 Sonographic [...] only and have not been reviewed by [facility]. There will be no report generated by a [facility] Radiologist. IR Outside Reference Result Date: 06/05/2022 These images are for Reference purposes only and have not been reviewed by [facility]. There will be no report generated by a [facility] Radiologist. Assessment/Plan: Please see top of note. Cosigned by Modesta Gamez MD at 06/07/2022 9:34 PM CDT Associated attestation - Modesta Gamez MD - 06/07/2022 9:34 PM CDT I have seen and examined the patient on 06/06/2022. I agree with the findings and plan of care as documented in the resident's/fellow's note. Nona Gamez MD Instructor, Acute and Critical Care Surgery [facility] ' * Hortencia Slade MD - 06/05/2022 2:37 PM CDTAssociated Order(s): CONSULT TO ENDOCRINOLOGY DIABETES Endocrinology & Diabetes Consult Note Patient: Adelia Garvin Jr., 51 y.o. male (: 1970) Room: [place] [address] ( ) LOS: 1 Consult Question: T1DM [...] (coronary artery disease), Chest pain, Diabetes mellitus ([facility]), Diabetes mellitus type I ([facility] Dialysis patient ([facility]), ESRD on dialysis ([facility]), GERD (gastroesophageal reflux disease), Hyperlipidemia, [...] is 44.91 kg/m??. I/O this shift: In: 78885 [P.O.:60; Other:78178] Out: 96768 [Other:45287] Physical Exam Gen : no acute distress, [...] ## Discharge Planning - Follow-up with home journalism internship Discussed with Dr. Huynh and primary team [...] Date: 2019 Dialysis Days: nightly Dialysis Center: [place], [place] Dialysis Medicine: Dialysis Prescription: CCPD - 4 exchanges of 2.8 L each, total time 9 hours, total volume : 11.2 L.All 2.5 % bags and then a manual day time exchange with 1 L purple bag. Past Medical History: Diagnosis Date CAD (coronary artery disease) Chest pain Diabetes mellitus ([facility]/HCC) Diabetes mellitus type I ([facility]/HCC) Dialysis patient ([facility]) ESRD on dialysis ([facility]) GERD (gastroesophageal reflux disease) Hyperlipidemia [...] No rash or lesions on visible skin COMPLAINT MANAGER: Alert Ox3. No focal motor deficits, no [...] cell count and diff. Vonnie Cody MD director maternal child documented in this encounter Nursing Notes * Tequila Ingram V., RN - 06/28/2022 8:08 PM CST 9 hour CCPD treatment started as ordered. PD catheter site is clear and free of drainage. PD site was cleansed and gentamicin cream applied at entrance. Covered with gauze dressing. Treatment setup aseptically per protocol. E OBIA SOLUTION ARCHITECT * Pj Duckworth RN - 06/28/2022 6:15 AM CST 06/28/22 0600 Vitals BP 124/62 Temp 36.7 ??C (98.1 ??F) Temp src Oral Pulse 70 Resp 16 SpO2 98 % Weight 120.3 kg (265 lb 3.4 oz) Peritoneal Dialysis Dialysis Type CCPD Peritoneal Dialysis Setup Completed by surgical garment fitter8th grade mathematics teacher Status End Cycle Number 4 Machine Type [place] [employer] Pro Machine # [id number] Initial Drain Volume (mL) 312 mL Last Fill Volume (mL) 999 mL Fill Volume In (mL) 93936 mL Effluent Volume Out (mL) 91609 ml Effluent Appearance Clear;Yellow Balance This Exchange (mL) 1788 mL Peritoneal Dialysis Catheter Continuous cycling No placement date or time found. Placed by External Staff?: Other (Comment) Dialysis Type: Continuous cycling Status Deaccessed;Clamped Dressing Gauze Dressing Status Clean, dry, intact E OBIA SOLUTION ARCHITECT * Pj Duckworth RN - 06/27/2022 8:21 PM CST Started CCPD. Target treatment time is 9 hours. E OBIA SOLUTION ARCHITECT * Pj Duckworth RN - 06/27/2022 6:24 AM CST 06/27/22 0600 Peritoneal Dialysis Dialysis Type CCPD Peritoneal Dialysis Setup Completed by surgical garment fitter8th grade mathematics teacher Status End Cycle Number 4 Machine Type [place] [facility] Pro Machine # [id number] Initial Drain Volume (mL) 690 mL Last Fill Volume (mL) 785 mL Fill Volume In (mL) 43490 mL Effluent Volume Out (mL) 89576 ml Effluent Appearance Clear;Yellow Balance This Exchange (mL) 1944 mL Peritoneal Dialysis Catheter Continuous cycling No placement date or time found. Placed by External Staff?: Other (Comment) Dialysis Type: Continuous cycling Status Deaccessed;Clamped Dressing Gauze Dressing Status Clean, dry, intact E OBIA SOLUTION ARCHITECT * Pj Duckworth RN - 06/26/2022 7:52 PM CST Started CCPD. Target treatment time is 9 hours. E OBIA SOLUTION ARCHITECT * Pj Duckworth RN - 06/25/2022 8:41 PM CDT Started CCPD. Target treatment time is 9 hours. * Pj Duckworth RN - 06/25/2022 6:09 AM CDT 06/25/22 0600 Peritoneal Dialysis Dialysis Type CCPD Peritoneal Dialysis Setup Completed by surgical garment fitter8th grade mathematics teacher Status End Cycle Number 4 Machine Type [facility] Pro Machine # [id number] Initial Drain Volume (mL) 423 mL Last Fill Volume (mL) 999 mL Fill Volume In (mL) 90901 mL Effluent Volume Out (mL) 22865 ml Effluent Appearance Clear;Yellow Balance This Exchange [...] at 150 ml/hr. 4K/2.5Ca dialysate fluid used. BUILDING MAINTENANCE SUPERVISOR has no questions or concerns at this time, contact number left at bedside. * Mell Daniel RN - 06/19/2022 10:01 AM CDT CVVHDF reset. Prismaflex #12 used. Warmer set at 40.5 using toney tubing through RIJ catheter. All pressures within normal limits. UF rate at 200 ml/hr. 4K/2.5Ca dialysate fluid used. BUILDING MAINTENANCE SUPERVISOR has no questions or concerns at this [...] Type CCPD Peritoneal Dialysis Setup Completed by surgical garment fitter8th grade mathematics teacher Status End Initial Drain Volume (mL) 429 [...] Change Due 06/19/22 Site Assessment Clean and dry;[place] * Jaja Mojica RN - 06/17/2022 12:43 PM CDT CCPD initiated per protocol and per order. Aury BUILDING MAINTENANCE SUPERVISOR notified and contact phone number left atthe bedside. * Jaja Mojica RN - 06/17/2022 12:21 PM CDT Pt's CCPD tx ended per protocol. Last fill of 0mL, total UF of 1213 clear, yellow, non odorous effluent. Aury BUILDING MAINTENANCE SUPERVISOR notified. Setting up next CCPD ordered to [...] without redness or drainage. Skin cleaned with [place] Secura skin cleanser, dried, then a thin [...] Blood flow and pressures WNL. Spoke to BUILDING MAINTENANCE SUPERVISOR Rachel, she has no questions or concerns [...] on venous line. Blood flow and pressures WNL.bomb loader has no questions or concerns at present [...] 06/07/2022 7:32 PM CDT Pt arrived to [id number] at 1637 and all initial hookups made. [...] degrees with alexander cord on return line. BUILDING MAINTENANCE SUPERVISOR has no questions or concerns at this [...] orders [place]. [place] [address] ml over 4Cycles of 2800 ml each [...] gout, BEN on CPAP initially presented to [facility] for generalized weakness, n/v, diarrhea, [...] another 6u IV regular insulin given 06/08: [facility] - -C/f DKA given BG in 300s, [...] started to prevent him from going to qksribn07/20: [facility] - #DKA - resolved In CCU, patient [...] of the patient???s medical record. Sincerely, [facility] Information Management E OBIA SOLUTION ARCHITECT * Consults, Subsequent - Dora Delarosa HEEL EMERY BUFFER - 06/29/2022 12:55 PM OBIEE OBIA SOLUTION ARCHITECT Endocrinology & Diabetes Progress Note Patient: Adelia Garvin Jr., 51 y.o. male (: 1970) Room: [place] [address] ( ) LOS: 25 Adelia Garvin Jr. [...] >> 0.8 2000 >> 5.8 ICR1:6.5 ISF1:25 [id number] TIA 4 Over the previous 24 hours, [...] recommend increasing the basal insulin dose from 4061-2604 today. We will continue to intensely monitor [...] yearly or sooner as indicated by your adult specialist # ESRD on PD - CKD and ESRD are independent risk factors for hypoglycemia ## Discharge Planning - Follow-up with home journalism internship -- Dora Delarosa NP Endocrinology, Metabolism, & Lipid Research Contact Info: New Consults: [phone]) General Endocrine (Non-Diabetes): [phone] (Check 'Treatment Team' assignment for Diabetes 1 vs 2 vs 3) Diabetes 1: Diabetes Fellow: [phone] Diabetes 2: Dora Delarosa HEEL EMERY BUFFER: [phone] Diabetes 3: See Treatment Team Provider (or call Dora Delarosa, above) Diabetes After-Hours & Weekends: Diabetes Fellow E OBIA SOLUTION ARCHITECT * Plan of Care - Elsie Gonzalez RN - 06/29/2022 11:32 AM CST [facility] [address] Post Acute Care Transfer Report SamdreAdelia Jr. , : 1970, Sex: M Adm: 06/04/2022, D/C: Post Acute Care Transfer Report Patient Demographics Address [address] [place] [address] (Home) *Preferred* E-mail Address [email or web address] PCP and Center Primary Care Provider Aditya Castro MD [address] [place] [address] Parent Location Code Status Information Code Status [...] Valerio PA Hyperlipidemia 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[place] artery of [place] heart with stable angina pectoris (CMS/HCC) (HCC) [...] Robbins Added automatically from request for surgery [id number] DELETED: Angina pectoris (HCC) 06/04/2022 - Present [...] MD Added automatically from request for surgery [id number] Anemia 06/22/2022 - Present 06/29/2022 by Frank Bowers MD Entered by Luiz Lewis DO All Assessment & Plan Notes ESRD (end stage renal disease) (CMS/HCC) (HCC) 06/22/2022 - Present 06/29/2022 by Frank Bowers MD Entered by Luiz Lewis DO All Assessment & Plan Notes Acute on chronic HFrEF (heart failure with reduced ejection fraction) ([facility]) 06/22/2022 - Present 06/29/2022 by Frank Bowers MD Entered by Luiz Lewis DO All Assessment & Plan Notes Atrial fibrillation ([facility]) ([facility]) 06/22/2022 - Present 06/29/2022 by Frank Bowers MD Entered by Luiz Lewis DO All Assessment & Plan Notes Principal NSTEMI (non-ST elevated myocardial infarction) ([facility]) ([facility]) 06/22/2022 - Present 06/29/2022 by Frank Bowers MD Entered by Luiz Lewis DO All Assessment & Plan Notes Cardiogenic shock ([facility]) 06/22/2022 - Present 06/29/2022 by [...] ...filed at 06/04/2022 2300 Patient Language and Faith Flowsheet Row Most Recent Value Patient's Preferred [...] 06/29/22 0700 - 06/30/22 0659 Total Total 9377-0489 8060-5459 6429-6017 Total 3713-6173 5711-6303 8305-6543 Total Intake (ml) 44722 80812 400 360 72521 44460 360 -- -- 360 Output (ml) 54596 82288 150 -- 94987 20339 -- -- -- -- Net (ml) -1709 -1301 597 360 -9761 -1176 360 -- -- 360 Last Weight -- [...] as: PriLOSEC acetaminophen (TYLENOL) tablet 1,000 mg [[id number]] Ordering Provider: Gu, Luiz Bohao, DO Status: Dispensed Ordered On: 06/22/221923 Start: 06/22/221929 Ordered Dose (Remaining/Total): 1,000 mg (--/--) Route: oral Frequency: Every 6 hours PRN Ordered Rate/Order Duration: -- / -- Timestamps Action Dose Route Other Information Performed 06/27/221746 Documented: 06/27/221746 Given 1,000 mg oral Performed by: Manda Lake RN Scanned Package: 99796-643-95, 72504-043-89 acetaminophen (TYLENOL) tablet 325 mg [[id number]] Ordering Provider: Meme Castro MD Status: Completed (Past End Date/Time) Ordered On: 06/15/22 1014 Starts/Ends: 06/15/221044 - 06/15/22944 Ordered Dose (Remaining/Total): 325 mg (0/1) Route: oral Frequency: Once Ordered Rate/Order Duration: -- / -- Timestamps Action Dose Route Other Information Performed 06/15/22944 Documented: 06/15/221103 Given 325 mg oral Performed by: Ravi Hollingsworth RN Scanned Package: [address]-1 albuterol HFA (PROVENTIL HFA,VENTOLIN HFA,PROAIR HFA) 90 mcg/actuation inhaler 2 puff [[id number]] Ordering Provider: Fernando Torres MD Status: Dispensed Ordered On: 06/05/22244 Start: 06/05/22228 Ordered Dose (Remaining/Total): 2 puff (--/--) Route: inhalation Frequency: Every 6 hours PRN (vp respiratory) Ordered Rate/Order Duration: -- / -- Timestamps Action Dose Route Other Information Performed 06/15/22249 Documented: 06/15/22252 Given 2 puff inhalation Performed by: Juanito Hernandez RRT Scanned Package: 9455-8403-86 alteplase (CATHFLO) 1 mg/mL syringe (premix) 1 mg [[id number]] Ordering Provider: Lavern Morrison MD Status: Completed [...] Performed by: Rachel Masters RN Scanned Package: 9434-3041-21 alteplase (CATHFLO) 1 mg/mL syringe (premix) 1 mg [[id number]] Ordering Provider: Robert Henry MD Status: Completed (Past End Date/Time) Ordered On: 06/11/22755 Starts/Ends: 06/11/22829 - 06/11/22920 Ordered Dose (Remaining/Total): 1 mg (0/1) Route: intra-catheter Frequency: Once Ordered Rate/Order Duration: -- / -- Admin Instructions: 60 to 120 minute dwell time. Refrigerate Timestamps Action Dose Route Other Information Performed 06/11/22920 Documented: 06/11/22924 Given 1 mg intra-catheter Performed by: Manda Pickett RN Scanned Package: 4451-6589-51 alteplase (CATHFLO) 1 mg/mL syringe (premix) 2 mg [[id number]] Ordering Provider: Robert Henry MD Status: Completed (Past End Date/Time) Ordered On: 06/11/221655 Starts/Ends: 06/11/221729 - 06/11/221809 Ordered Dose (Remaining/Total): 2 mg (0/1) Route: intra-catheter Frequency: Once Ordered Rate/Order Duration: -- / -- Admin Instructions: 60 to 120 minute dwell time. Refrigerate Timestamps Action Dose Route Other Information Performed 06/11/221809 Documented: 06/11/221809 Given 2 mg intra-catheter Performed by: Manda Pickett RN Scanned Package: 7135-6408-40, 8498-9197-15 alteplase (CATHFLO) 1 mg/mL syringe (premix) 2 mg [[id number]] Ordering Provider: Robert Henry MD Status: Completed (Past End Date/Time) Ordered On: 06/11/221655 Starts/Ends: 06/11/221729 - 06/11/221810 Ordered Dose (Remaining/Total): 2 mg (0/1) Route: intra-catheter Frequency: Once Ordered Rate/Order Duration: -- / -- Admin Instructions: 60 to 120 minute dwell time. Refrigerate Timestamps Action Dose Route Other Information Performed 06/11/221810 Documented: 06/11/221810 Given 2 mg intra-catheter Performed by: Manda Pickett RN Scanned Package: 0812-9624-96, 6423-4364-39 amiodarone (NEXTERONE) 150 mg/100 mL (1.5 mg/mL) in dextrose (premix) 150 mg [[id number]] Ordering Provider: Jeffrey Green MD Status: Completed [...] (1.5 mg/mL) in dextrose (premix) 150 mg [[id number]] Ordering Provider: Lavern Morrison MD Status: Completed [...] Performed by: Carlos Esparza RN Scanned Package: 69681-114-88 amiodarone (NEXTERONE) 150 mg/100 mL (1.5 mg/mL) in dextrose (premix) 150 mg [[id number]] Ordering Provider: Lavern Morrison MD Status: Completed [...] Performed by: Carlos Esparza RN Scanned Package: 00280-245-15 amiodarone (NEXTERONE) 150 mg/100 mL (1.5 mg/mL) in dextrose (premix) 150 mg [[id number]] Ordering Provider: Tyra De La Torre MD [...] Escobar RN aspirin chewable tablet 81 mg [[id number]] Ordering Provider: Marcelina Pickard NP Status: Completed (Past End Date/Time) Ordered On: 06/07/22 1112 Starts/Ends: 06/07/22 1145 - 06/07/221136 Ordered Dose (Remaining/Total): 81 mg (0/1) Route: oral Frequency: Once Ordered Rate/Order Duration: -- / -- Timestamps Action Dose Route Other Information Performed 06/07/221136 Documented: 06/07/221137 Given 81 mg oral Performed by: Carolyn Troncoso RN Scanned Package: 8226-3748-13 aspirin chewable tablet 81 mg [[id number]] Ordering Provider: Luiz Lewis DO Status: Dispensed Ordered On: 06/22/221923 Start: 06/23/22899 Ordered Dose (Remaining/Total): 81 mg (--/--) Route: oral Frequency: Daily Ordered Rate/Order Duration: -- / -- Timestamps Action Dose Route Other Information Performed 06/29/22822 Documented: 06/29/22823 Given 81 mg oral Performed by: Manda Lake RN Scanned Package: 3949-4480-46 atorvastatin (LIPITOR) tablet 80 mg [[id number]] Ordering Provider: Luiz Lewis DO Status: Dispensed Ordered On: 06/22/221923 Start: 06/23/22899 Ordered Dose (Remaining/Total): 80 mg (--/--) Route: oral Frequency: Daily Ordered Rate/Order Duration: -- / -- Timestamps Action Dose Route Other Information Performed 06/29/22822 Documented: 06/29/22823 Given 80 mg oral Performed by: Manda Lake RN Scanned Package: [address]-2 azithromycin (ZITHROMAX) tablet 500 mg [[id number]] Ordering Provider: Russ Milner MD Status: Completed (Past End Date/Time) Ordered On: 06/05/22 0245 Starts/Ends: 06/05/22 09 - 06/05/22 0849 Ordered Dose (Remaining/Total): 500 mg (0/1) Route: oral Frequency: Once Ordered Rate/Order Duration: -- / -- Timestamps Action Dose Route Other Information Performed 06/05/2249 Documented: 06/05/22 0850 Given 500 mg oral Performed by: Nona Fernandez RN Scanned Package: [address]-8, [address]-4 barium sulfate (VARIBAR NECTAR) 40 % (w/v) nectar [[id number]] Ordering Provider: Tyra De La Torre MD [...] PUDDING) 40 % (w/v), 30% (w/w) pudding [[id number]] Ordering Provider: Tyra De La Torre MD [...] THIN LIQUID) 81 % (w/w) thin liquid [[id number]] Ordering Provider: Tyra De La Torre MD [...] % (w/v) 29% (w/w) suspension 250 mL [[id number]] Ordering Provider: Tyra De La Torre MD [...] ml given calcitRIOL (ROCALTROL) capsule 0.25 mcg [[id number]] Ordering Provider: Tyra De La Torre MD Status: Dispensed Ordered On: 06/22/22921 Start: 06/22/22 1000 Ordered Dose (Remaining/Total): 0.25 mcg (--/--) Route: oral Frequency: Daily Ordered Rate/Order Duration: -- / -- Timestamps Action Dose Route Other Information Performed 06/29/22822 Documented: 06/29/22823 Given 0.25 mcg oral Performed by: Manda Lake RN Scanned Package: 58581-876-32 calcium acetate(phosphat bind) (PHOSLO) capsule 667 mg [[id number]] Ordering Provider: Fernando Torres MD Status: Dispensed Ordered On: 06/05/22 0245 Start: 06/05/22 08 Ordered Dose (Remaining/Total): 667 mg (--/--) Route: oral Frequency: 4 times daily Ordered Rate/Order Duration: -- / -- Admin Instructions: Take with food Timestamps Action Dose Route Other Information Performed 06/29/22822 Documented: 06/29/22823 Given 667 mg oral Performed by: Manda Lake RN Scanned Package: 85685-442-06 calcium carbonate (TUMS) chewable tablet 500 mg [[id number]] Ordering Provider: Earl Samuels MD Status: Completed (Past End Date/Time) Ordered On: 06/24/222111 Starts/Ends: 06/24/222144 - 06/24/222137 Ordered Dose (Remaining/Total): 200 mg of elemental calcium (0/1) Route: oral Frequency: Once Ordered Rate/Order Duration: -- / -- Timestamps Action Dose Route Other Information Performed 06/24/222137 Documented: 06/24/222137 Given 500 mg oral Performed by: Sasha Subramanian RN Scanned Package: 7803-5634-66 clopidogreL (PLAVIX) tablet 600 mg [[id number]] Ordering Provider: Finn Dupont MD Status: Completed (Past End Date/Time) Ordered On: 06/07/22806 Starts/Ends: 06/07/22844 - 06/07/22956 Ordered Dose (Remaining/Total): 600 mg (0/1) Route: oral Frequency: Once Ordered Rate/Order Duration: -- / -- Timestamps Action Dose Route Other Information Performed 06/07/22956 Documented: 06/07/22957 Given 600 mg oral Performed by: Caitlyn Guzman RN Scanned Package: 98336-862-55, 69800-624-98 clopidogreL (PLAVIX) tablet 75 mg [[id number]] Ordering Provider: Luiz Lewis DO Status: Dispensed Ordered On: 06/22/221923 Start: 06/23/22899 Ordered Dose (Remaining/Total): 75 mg (--/--) Route: oral Frequency: Daily Ordered Rate/Order Duration: -- / -- Timestamps Action Dose Route Other Information Performed 06/29/22822 Documented: 06/29/22823 Given 75 mg oral Performed by: Manda Lake RN Scanned Package: 7517-2846-18 Dianeal low calcium-dextrose 1.5 % 2,000 mL dialysis solution [[id number]] Ordering Provider: James Horvath MD Status: Dispensed [...] calcium-dextrose 2.5 % 2,000 mL dialysis solution [[id number]] Ordering Provider: Tom Mendez MD Status: Dispensed [...] calcium-dextrose 2.5 % 5,000 mL dialysis solution [[id number]] Ordering Provider: Yovanny Curtis MD Status: Dispensed [...] calcium-dextrose 2.5 % 5,000 mL dialysis solution [[id number]] Ordering Provider: Yovanny Curtis MD Status: Dispensed [...] calcium-dextrose 2.5 % 5,000 mL dialysis solution [[id number]] Ordering Provider: Tom Mendez MD Status: Dispensed [...] calcium-dextrose 2.5 % 5,000 mL dialysis solution [[id number]] Ordering Provider: Tom Mendez MD Status: Dispensed [...] Duckworth RN diphenhydrAMINE (BENADRYL) capsule 50 mg [[id number]] Ordering Provider: Veronica Tavares MD Status: Completed [...] oral Performed by: Caitlyn Guzman RN Comments: laboratory worker premed Scanned Package: [id number] Extraneal 7.5% ULTRABAG 2,000 mL dialysis solution [[id number]] Ordering Provider: Tom Mendez MD Status: Dispensed (Past End Date/Time) Ordered On: 06/26/22 1309 Starts/Ends: 06/26/22 1345 - 06/27/221936 Ordered Dose (Remaining/Total): -- (--/--) Route: intraperitoneal Frequency: Continuous Ordered Rate/Order Duration: -- / -- Timestamps Action Dose / Rate / Duration Route Other Information Performed 06/26/221937 Documented: 06/26/221937 New Bag -- intraperitoneal Performed by: Pj Duckworth RN ezetimibe (ZETIA) tablet 10 mg [[id number]] Ordering Provider: Luiz Lewis DO Status: Dispensed Ordered On: 06/22/221923 Start: 06/23/22 09 Ordered Dose (Remaining/Total): 10 mg (--/--) Route: oral Frequency: Daily Ordered Rate/Order Duration: -- / -- Timestamps Action Dose Route Other Information Performed 06/29/22822 Documented: 06/29/22 0824 Given 10 mg oral Performed by: Manda Lake RN Scanned Package: 77706-915-98 furosemide (LASIX) 10 mg/mL injection 120 mg [[id number]] Ordering Provider: Dimitrios Hensley MD Status: Completed [...] Performed by: Nona Fernandez RN Scanned Package: 9408-4492-74, 4297-7761-43 gentamicin (GARAMYCIN) 0.1 % cream [[id number]] Ordering Provider: James Horvath MD Status: Dispensed [...] Performed by: Tequila Ingram RN Scanned Package: 81005-201-67 heparin 1,000 unit/mL injection 1.5-6.9 mL [[id number]] Ordering Provider: James Horvath MD Status: Completed (Past End Date/Time) Ordered On: 06/20/22 1224 Starts/Ends: 06/20/22 1300 - 06/20/22 1233 Ordered Dose (Remaining/Total): 1.5-6.9 mL (0/1) Route: intra-catheter Frequency: Once Ordered Rate/Order Duration: -- / -- Admin Instructions: Indwell volume of catheter lumens post treatment. Give volume based upon floor person's recommendation (usual range 1.2 - 3 mL) in each lumen. Timestamps Action Dose Route Other Information Performed 06/20/22 1233 Documented: 06/20/22 1233 Given 3 mL intra-catheter Performed by: Margaret Escobar RN Scanned Package: 4826-3117-13 heparin 1,000 unit/mL injection 4,000 Units [[id number]] Ordering Provider: Russ Milner MD Status: Completed [...] Signoff by: Ayleen Doan RN Scanned Package: 6866-2963-62 heparin 5,000 unit/mL injection 5,000 Units [[id number]] Ordering Provider: Robert Henry MD Status: Dispensed Ordered On: 06/22/22 1107 Start: 06/22/22 1400 Ordered Dose (Remaining/Total): 5,000 Units (--/--) Route: subcutaneous Frequency: Every 8 hours scheduled Ordered Rate/Order Duration: -- / -- Timestamps Action Dose Route / Site Other Information Performed 06/29/22500 Documented: 06/29/22500 Given 5,000 Units subcutaneous Left Lower Abdomen Performed by: Radha Paul RN Scanned Package: 53211-168-87 heparin in 0.9% sodium chloride 25,000 unit/250 mL infusion (premix) [[id number]] Ordering Provider: Champ Osborne MD PhD Status: Completed (Past End Date/Time) Ordered On: 06/07/22 143 Frequency: Continuous PRN Timestamps Action Dose / Rate Route / Site / Linked Line Other Information Performed 06/07/221429 Documented: 06/07/22 143 New Bag 14 Units/kg/hr 19.88 mL/hr -- Performed by: Stephanie Bacon RN influenza quadrivalent 1190-7360 (FLULAVAL,FLUARIX,FLUZONE) 60 mcg (15 mcg x 4)/0.5 mL vaccine (STANDARD age 6 months and up) 0.5 mL [[id number]] Ordering Provider: Champ Osborne MD PhD Status: Completed (Past End Date/Time) Ordered On: 06/04/222316 Starts/Ends: 06/04/222316 - 06/04/222335 Ordered Dose (Remaining/Total): 0.5 mL (0/1) Route: intramuscular Frequency: During hospitalization Ordered Rate/Order Duration: -- / -- Timestamps Action Dose Route / Site Other Information Performed 06/04/222335 Documented: 06/04/222337 Given 0.5 mL intramuscular Right Deltoid Performed by: Kristie Banegas, LUAN Scanned Package: 27993-674-70 insulin lispro (HumaLOG, ADMELOG) 100 unit/mL injection 5 Units [[id number]] Ordering Provider: Lavern Morrison MD Status: Completed (Past End Date/Time) Ordered On: 06/22/22604 Starts/Ends: 06/22/22604 - 06/22/22621 Ordered Dose (Remaining/Total): 5 Units (0/1) Route: subcutaneous Frequency: Once Ordered Rate/Order Duration: -- / -- Timestamps Action Dose Route / Site Other Information Performed 06/22/22621 Documented: 06/22/22621 Given 5 Units subcutaneous Left Lower Abdomen Performed by: Annmarie Ayala RN Scanned Package: 9621-2021-45 insulin lispro (HumaLOG, ADMELOG) 100 unit/mL injection 5 Units [[id number]] Ordering Provider: Indiana Irwin III, MD Status: Completed (Past End Date/Time) Ordered On: 06/24/22140 Starts/Ends: 06/24/22214 - 06/24/22156 Ordered Dose (Remaining/Total): 5 Units (0/1) Route: subcutaneous Frequency: Once Ordered Rate/Order Duration: -- / -- Timestamps Action Dose Route / Site Other Information Performed 06/24/22156 Documented: 06/24/22157 Given 5 Units subcutaneous Right Upper Arm Performed by: Mell Wild RN Scanned Package: 5219-3213-73 insulin lispro (HumaLOG, ADMELOG) 100 unit/mL injection 2 Units [[id number]] Ordering Provider: Carey East MD Status: Completed [...] Performed by: Adelita Self RN Scanned Package: 3116-9994-93 insulin regular (HumuLIN R, NovoLIN R) 100 unit/mL injection 4 Units [[id number]] Ordering Provider: Payam Connor MD Status: Completed [...] Signoff by: Milagros Hinojosa RN Scanned Package: 8310-9158-27 insulin regular (HumuLIN R, NovoLIN R) 100 unit/mL injection 6 Units [[id number]] Ordering Provider: Toyin Alberto MD Status: Completed (Past End Date/Time) Ordered On: 06/05/221429 Starts/Ends: 06/05/22 1515 - 06/05/22 143 Ordered Dose (Remaining/Total): 6 Units (0/1) Route: intravenous Frequency: Once Ordered Rate/Order Duration: -- / -- Timestamps Action Dose Route Other Information Performed 06/05/221433 Documented: 06/05/221433 Given 6 Units intravenous Performed by: Nona Fernandez RN Dual Signoff by: Jacob Luna RN Scanned Package: 4913-7670-70 insulin regular (HumuLIN R, NovoLIN R) 100 unit/mL injection 5 Units [[id number]] Ordering Provider: Jeffrey Green MD Status: Completed (Past End Date/Time) Ordered On: 06/07/221746 Starts/Ends: 06/07/221829 - 06/07/221756 Ordered Dose (Remaining/Total): 5 Units (0/1) Route: intravenous Frequency: Once Ordered Rate/Order Duration: -- / -- Timestamps Action Dose Route Other Information Performed 06/07/221756 Documented: 06/07/221801 Given 5 Units intravenous Performed by: Figueroa Jack RN Dual Signoff by: Ravi Hollingsworth RN Scanned Package: 1172-5902-28 insulin regular (HumuLIN R, NovoLIN R) 100 unit/mL injection 7 Units [[id number]] Ordering Provider: Meme Castro MD Status: Completed [...] Signoff by: Rachel Masters RN Scanned Package: 3908-6345-74 insulin regular (HumuLIN R, NovoLIN R) 100 unit/mL injection 4 Units [[id number]] Ordering Provider: Jeffrey Green MD Status: Completed [...] Signoff by: Rachel Masters RN Scanned Package: 5025-5663-05 INSULIN SUBCUTANEOUS PUMP (HUMALOG) 100 UNITS/ML INSULIN PUMP INFUSION (HumaLOG) patient supplied pump 0-25 Units [[id number]] Ordering Provider: Dora Delarosa NP Status: Verified [...] ER (IMDUR) extended release tablet 30 mg [[id number]] Ordering Provider: Carey East MD Status: Dispensed [...] Performed by: Manda Lake RN Scanned Package: 5767-7825-18 lidocaine PF (XYLOCAINE) 10 mg/mL (1 %) preservative free injection [[id number]] Ordering Provider: Aric Cordova MD Status: Completed (Past End Date/Time) Ordered On: 06/18/22 123 Frequency: Code/trauma/sedation medication Timestamps Action Dose Route Other Information Performed 06/18/22 1231 Documented: 06/18/22 123 Given 10 mL Injection Performed by: Aric Cordova MD Documented by: Nick Delarosa RN losartan (COZAAR) tablet 12.5 mg [[id number]] Ordering Provider: Carey East MD Status: Dispensed Ordered On: 06/24/221717 Start: 06/25/22 09 Ordered Dose (Remaining/Total): 12.5 mg (--/--) Route: oral Frequency: Daily Ordered Rate/Order Duration: -- / -- Timestamps Action Dose Route Other Information Performed 06/29/22821 Documented: 06/29/22823 Given 12.5 mg oral Performed by: Manda Lake RN Scanned Package: 90664-650-33 magnesium sulfate 2 g/50 mL in water (premix) 2 g [[id number]] Ordering Provider: Jeffrey Green MD Status: Completed (Past End Date/Time) Ordered On: 06/18/221837 Starts/Ends: 06/18/221914 - 06/18/222024 Ordered Dose (Remaining/Total): 2 g (0/1) Route: intravenous Frequency: Once Ordered Rate/Order Duration: -- / 60 Minutes Timestamps Action Dose / Duration Route Other Information Performed 06/18/221924 Documented: 06/18/221924 New Bag 2 g 60 Minutes intravenous Performed by: Carlos Esparza RN Scanned Package: 2400-6005-95 metoprolol tartrate (LOPRESSOR) immediate release tablet 25 mg [[id number]] Ordering Provider: Carey East MD Status: Dispensed Ordered On: 06/26/22 1551 Start: 06/27/22 0900 Ordered Dose (Remaining/Total): 25 mg (--/--) Route: oral Frequency: 2 times daily Ordered Rate/Order Duration: -- / -- Timestamps Action Dose Route Other Information Performed 06/29/22821 Documented: 06/29/22 08 Given 25 mg oral Performed by: Manda Lake RN Scanned Package: 34768-632-91 midazolam (VERSED) 1 mg/mL injection 2 mg [[id number]] Ordering Provider: Lavern Morrison MD Status: Completed (Past End Date/Time) Ordered On: 06/15/221756 Starts/Ends: 06/15/221829 - 06/15/221804 Ordered Dose (Remaining/Total): 2 mg (0/1) Route: intravenous Frequency: Once Ordered Rate/Order Duration: -- / -- Timestamps Action Dose Route Other Information Performed 06/15/221804 Documented: 06/15/221805 Given 2 mg intravenous Performed by: Ravi Hollingsworth RN Scanned Package: 2888-9173-60 midazolam (VERSED) bolus from bag 2 mg [[id number]] Ordering Provider: Jeffrey Green MD Status: Completed (Past End Date/Time) Ordered On: 06/16/221719 Starts/Ends: 06/16/22 1800 - 06/16/221744 Ordered Dose (Remaining/Total): 2 mg (0/1) Route: intravenous Frequency: Once Ordered Rate/Order Duration: -- / -- Timestamps Action Dose Route Other Information Performed 06/16/221744 Documented: 06/16/221756 Bolus from Bag 2 mg intravenous Performed by: Ravi Hollingsworth RN pantoprazole DR (PROTONIX) extended release tablet 40 mg [[id number]] Ordering Provider: Carey East MD Status: Dispensed [...] Performed by: Manda Lake RN Scanned Package: 8881-1719-54 perflutren protein-a (OPTISON) 0.22 mg/mL injection - ADS Override Pull [[id number]] Status: Completed (Past End Date/Time) Ordered On: [...] in sodium chloride 0.9% 8 mL syringe [[id number]] Ordering Provider: Meme Castro MD Status: Completed [...] CLASSIC) 1.4-0.6 % ophthalmic solution 1 drop [[id number]] Ordering Provider: Jeffrey Green MD Status: Dispensed Ordered On: 06/16/221911 Start: 06/16/222099 Ordered Dose (Remaining/Total): 1 drop (--/--) Route: each eye Frequency: 4 times daily Ordered Rate/Order Duration: -- / -- Timestamps Action Dose Route Other Information Performed 06/29/22821 Documented: 06/29/22823 Given 1 drop each eye Performed by: Manda Lake RN Scanned Package: 2535-1616-95 potassium chloride (KLOR-CON) packet 40 mEq [[id number]] Ordering Provider: Meme Castro MD Status: Completed [...] Performed by: Rachel Masters RN Scanned Package: [address]-4, [address]-2 potassium chloride 40 mEq/100 mL in sterile water (premix) 40 mEq [[id number]] Ordering Provider: Ashley Baer MD Status: Completed [...] mL in sterile water (premix) 40 mEq [[id number]] Ordering Provider: Meme Castro MD Status: Dispensed [...] 25 mL/hr 4 Hours intravenous Performed by: Rachle Masters RN Scanned Package: 6576-3829-19 potassium chloride ER (KLOR-CON) extended release tablet 30 mEq [[id number]] Ordering Provider: Tyra De La Torre MD [...] Performed by: Carlos Esparza RN Scanned Package: 79021-396-16, 65414-483-36, 42160-444-28 potassium chloride ER (KLOR-CON) extended release tablet 20 mEq [[id number]] Ordering Provider: Carey East MD Status: Completed [...] Performed by: Manda Lake RN Scanned Package: 7423-9958-22, 4009-8034-58 predniSONE (DELTASONE) tablet 50 mg [[id number]] Ordering Provider: Veronica Tavares MD Status: Completed (Past End Date/Time) Ordered On: 06/06/22 1344 Starts/Ends: 06/07/22 0000 - 06/07/22 1018 Ordered Dose (Remaining/Total): 50 mg (0/3) Route: oral Frequency: Every 6 hours Ordered Rate/Order Duration: -- / -- Admin Instructions: Call Radiology to schedule procedure after the 1st dose is administered. CT Toilet And Laundry Soap Supervisor South: 7-[address] Toilet And Laundry Soap Supervisor North: 7-5 After Timestamps Action Dose Route Other Information Performed 06/07/22 1018 Documented: 06/07/22 1019 Given 50 mg oral Performed by: Caitlyn Guzman RN Comments: laboratory worker premed Scanned Package: 6224-2149-84 ramelteon (ROZEREM) tablet 8 mg [[id number]] Ordering Provider: Marcelina Pickard NP Status: Dispensed Ordered On: 06/08/22918 Start: 06/08/22918 Ordered Dose (Remaining/Total): 8 mg (--/--) Route: feeding tube Frequency: Nightly PRN Ordered Rate/Order Duration: -- / -- Timestamps Action Dose Route Other Information Performed 06/08/222040 Documented: 06/08/222040 Given 8 mg feeding tube Performed by: Rachel Masters RN Scanned Package: [address]-4 sodium bicarbonate 8.4 % (1 mEq/mL) injection 50 mEq [[id number]] Ordering Provider: Champ Osborne MD PhD Status: Completed (Past End Date/Time) Ordered On: 06/07/22 1348 Starts/Ends: 06/07/22 1430 - 06/07/22 1335 Ordered Dose (Remaining/Total): 50 mEq (0/1) Route: intravenous Frequency: Once Ordered Rate/Order Duration: -- / -- Timestamps Action Dose Route Other Information Performed 06/07/221334 Documented: 06/07/22 1351 Given 50 mEq intravenous Performed by: Stephanie Bacon RN sodium chloride 0.9% IVPB 0-250 mL [[id number]] Ordering Provider: Meme Castro MD Status: Completed [...] Performed by: Carlos Esparza RN Scanned Package: [id number] sodium chloride 0.9% IVPB 0-250 mL [[id number]] Ordering Provider: Robert Henry MD Status: Completed [...] Performed by: Margaret Escobar RN Scanned Package: 6245-5627-07 Rex Scale Flowsheet Row Most Recent Value [...] 06/23/2022129 Throat Intact ............filed at 06/23/2022129 Tongue [place], Moist ............filed at 06/23/2022129 Voice Deep ............filed at 06/22/2022 08 Mucous Membrane(s) Moist, [place] ............filed at 06/22/2022 08 Teeth and Gums [...] last 72 hours COVID-19 Coronavirus RNA Nasopharyngeal [[id number]] Resulted: 06/28/22 1703, Result status: Final result Ordering provider: Frank Bowers MD 06/28/22 1517 Resulting lab: [facility] Narrative: Is the patient experiencing any symptoms consistent with COVID (eg. Fever, cough, shortness of breath)?->No What is the reason for testing?->Placement in post-acute care setting (Rapid) Interpretive data: Synonyms for this test include: PCR and NAAT . This test is performed using the [employer] Xpert Xpress plus assay. This is a [...] . This test is performed using the [employer] Xpert Xpress plus assay. This is a [...] COVID-19 RNA Negative Negative -- -- eGFR [[id number]] (Abnormal) Resulted: 06/27/22457, Result status: Final result Ordering provider: Carey East MD 06/27/22350 Resulting lab: [facility] Specimen Information Type Source Collected On Blood -- 06/27/22 035 Components Component Value Reference Range Flag Lab eGFR 6 90 - 130 mL/min/1.73 m2 L Low -- Basic metabolic panel [[id number]] (Abnormal) Resulted: 06/27/22457, Result status: Final result Ordering provider: Carey East MD 06/26/22 1800 Resulting lab: [facility] Specimen Information Type Source Collected On [...] mg/dL L Low -- CBC without differential [[id number]] (Abnormal) Resulted: 06/27/22 0435, Result status: Final result Ordering provider: Carey East MD 06/26/22 1800 Resulting lab: [facility] Specimen Information Type Source Collected On [...] results found ECG/EMG Results ECG 12 lead [[id number]] Resulted: 06/23/22 162, Result status: Final result Ordering provider: Carey East MD 06/23/22 1330 Resulted by: Hudson Sal Jr., MD PhD Accession number: [id number] Resulting lab: [facility] Components Component Value Reference Range Flag Lab Ventricular Rate EKG/Min 100 BPM -- -- Atrial Rate 100 BPM -- -- OK-Interval (MSEC) 182 ms -- -- QRS-Interval (MSEC) 106 ms -- -- QT-Interval (MSEC) 380 ms -- -- QTc 490 ms -- -- R [place] -47 degrees -- -- T [place] 105 degrees -- -- Diagnosis -- -- [...] on 06/23/2022 4:28:23 PM ECG 12 lead [[id number]] Resulted: 06/23/22 1444, Result status: Preliminary result Ordering provider: Carey East MD 06/23/22 1330 Resulted by: Hudson Sal Jr., MD PhD Accession number: [id number] Resulting lab: [facility] [employer] Component Value Reference Range Flag Lab Ventricular Rate EKG/Min 100 BPM -- -- Atrial Rate 100 BPM -- -- OK-Interval (MSEC) 182 ms -- -- QRS-Interval (MSEC) 106 ms -- -- QT-Interval (MSEC) 380 ms -- -- QTc 490 ms -- -- R [place] -47 degrees -- -- T [place] 105 degrees -- -- Diagnosis -- -- [...] depressed in Lateral leads ECG 12 lead [[id number]] Resulted: 06/22/22 1055, Result status: Final result Ordering provider: Fernando Torres MD 06/19/22 1255 Resulted by: Hudson Sal Jr., MD PhD Accession number: [id number] Resulting lab: [facility] [employer] Components Component Value Reference Range Flag Lab Ventricular Rate EKG/Min 126 BPM -- -- Atrial Rate 63 BPM -- -- QRS-Interval (MSEC) 106 ms -- -- QT-Interval (MSEC) 360 ms -- -- QTc 521 ms -- -- R [place] -53 degrees -- -- T [place] 125 degrees -- -- Diagnosis -- -- [...] on 06/22/2022 10:55:43 AM ECG 12 lead [[id number]] Resulted: 06/21/22 1328, Result status: Final result Ordering provider: Fernando Torres MD 06/18/22 1831 Resulted by: Kenn Billingsley MD Accession number: [id number] Resulting lab: [facility] [employer] Component Value Reference Range Flag Lab Ventricular Rate EKG/Min 133 BPM -- -- Atrial Rate 147 BPM -- -- QRS-Interval (MSEC) 102 ms -- -- QT-Interval (MSEC) 332 ms -- -- QTc 494 ms -- -- R [place] -43 degrees -- -- T [place] 123 degrees -- -- Diagnosis -- -- [...] on 06/21/2022 1:28:53 PM ECG 12 lead [[id number]] Resulted: 06/08/22 0942, Result status: Final result Ordering provider: Jeffrey Green MD 06/07/22 1647 Resulted by: Jess Bustos MD Accession number: [id number] Resulting lab: [facility] [employer] Component Value Reference Range Flag Lab Ventricular Rate EKG/Min 51 BPM -- -- Atrial Rate 51 BPM -- -- OK-Interval (MSEC) 212 ms -- -- QRS-Interval (MSEC) 130 ms -- -- QT-Interval (MSEC) 580 ms -- -- QTc 534 ms -- -- P [place] 69 degrees -- -- R [place] -38 degrees -- -- T [place] 95 degrees -- -- Diagnosis -- -- [...] on 06/08/2022 9:42:26 AM ECG 12 lead [[id number]] Resulted: 06/07/22 0830, Result status: Final result Ordering provider: Toyin Alberto MD 06/05/22 1448 Resulted by: Jess Bustos MD Accession number: [id number] Resulting lab: [facility] [employer] Component Value Reference Range Flag Lab Ventricular Rate EKG/Min 73 BPM -- -- Atrial Rate 73 BPM -- -- OK-Interval (MSEC) 184 ms -- -- QRS-Interval (MSEC) 106 ms -- -- QT-Interval (MSEC) 442 ms -- -- QTc 486 ms -- -- P [place] 49 degrees -- -- R [place] -33 degrees -- -- T [place] 87 degrees -- -- Diagnosis -- -- -- -- Result: Normal sinus rhythm Left axis deviation QS in V1 and V2, a nonspecific finding with multiple causes, including lead misplacement or septal infarction in 20% Abnormal ECG Confirmed by JESS BUSTOS M.D ([id number]) on 06/07/2022 8:30:06 AM ECG 12 lead [[id number]] Resulted: 06/07/22624, Result status: Preliminary result Ordering provider: Toyin Alberto MD 06/05/22 1448 Resulted by: Jess Bustos MD Accession number: [id number] Resulting lab: [facility] [employer] Component Value Reference Range Flag Lab Ventricular Rate EKG/Min 73 BPM -- -- Atrial Rate 73 BPM -- -- OK-Interval (MSEC) 184 ms -- -- QRS-Interval (MSEC) 106 ms -- -- QT-Interval (MSEC) 442 ms -- -- QTc 486 ms -- -- P [place] 49 degrees -- -- R [place] -33 degrees -- -- T [place] 87 degrees -- -- Diagnosis -- -- -- -- Result: Normal sinus rhythm Possible Left atrial enlargement Left axis deviation Septal infarct , age undetermined Abnormal ECG ECG 12 lead [[id number]] Resulted: 06/06/222156, Result status: Final result Ordering provider: Russ Milner MD 06/04/222154 Resulted by: Kenn Billingsley MD Accession number: [id number] Resulting lab: [facility] [employer] Component Value Reference Range Flag Lab Ventricular Rate EKG/Min 47 BPM -- -- Atrial Rate 47 BPM -- -- OK-Interval (MSEC) 228 ms -- -- QRS-Interval (MSEC) 116 ms -- -- QT-Interval (MSEC) 532 ms -- -- QTc 470 ms -- -- P [place] 39 degrees -- -- R [place] -33 degrees -- -- T [place] 105 degrees -- -- Diagnosis -- -- -- -- Result: Sinus bradycardia with 1st degree A-V block Left axis deviation Incomplete left bundle branch block Nonspecific ST and T wave abnormality Long QTc When compared with ECG of 23-MAR-2017 00:14, OK interval has increased QTc has increased Rate has decreased by 15 bpm Incomplete left bundle branch block is now Present Criteria for Septal infarct are not Present Confirmed by KENN BILLINGSLEY M.D ([id number]) on 06/06/2022 9:57:10 PM ECG 12 lead [[id number]] Resulted: 06/06/22943, Result status: Preliminary result Ordering provider: Russ Milner MD 06/04/222154 Resulted by: Kenn Billingsley MD Accession number: [id number] Resulting lab: [facility] [employer] Component Value Reference Range Flag Lab Ventricular Rate EKG/Min 47 BPM -- -- Atrial Rate 47 BPM -- -- OK-Interval (MSEC) 228 ms -- -- QRS-Interval (MSEC) 116 ms -- -- QT-Interval (MSEC) 532 ms -- -- QTc 470 ms -- -- P [place] 39 degrees -- -- R [place] -33 degrees -- -- T [place] 105 degrees -- -- Diagnosis -- -- -- -- Result: Sinus bradycardia with 1st degree A-V block Left axis deviation Incomplete left bundle branch block Abnormal QRS-T angle, consider primary T wave abnormality Abnormal ECG When compared with ECG of 23-MAR-2017 00:14, OK interval has increased Incomplete left bundle branch block is now Present Criteria for Septal infarct are no longer Present ECG 12 lead [[id number]] Resulted: 06/06/22931, Result status: Preliminary result Ordering provider: Toyin Alberto MD 06/05/22 144 Resulted by: Jess Bustos MD Accession number: [id number] Resulting lab: [facility] [employer] Component Value Reference Range Flag Lab Ventricular Rate EKG/Min 73 BPM -- -- Atrial Rate 73 BPM -- -- OK-Interval (MSEC) 184 ms -- -- QRS-Interval (MSEC) 106 ms -- -- QT-Interval (MSEC) 442 ms -- -- QTc 486 ms -- -- P [place] 49 degrees -- -- R [place] -33 degrees -- -- T [place] 87 degrees -- -- Diagnosis -- -- -- -- Result: Normal sinus rhythm Possible Left atrial enlargement Left axis deviation Septal infarct , age undetermined Abnormal ECG ECG 12 lead [[id number]] Resulted: 06/06/22908, Result status: Preliminary result Ordering provider: Russ Milner MD 06/04/222154 Resulted by: Kenn Billingsley MD Accession number: [id number] Resulting lab: [facility] [employer] Component Value Reference Range Flag Lab Ventricular Rate EKG/Min 47 BPM -- -- Atrial Rate 47 BPM -- -- OK-Interval (MSEC) 228 ms -- -- QRS-Interval (MSEC) 116 ms -- -- QT-Interval (MSEC) 532 ms -- -- QTc 470 ms -- -- P [place] 39 degrees -- -- R [place] -33 degrees -- -- T [place] 105 degrees -- -- Diagnosis -- -- -- -- Result: Sinus bradycardia with 1st degree A-V block Left axis deviation Incomplete left bundle branch block Abnormal QRS-T angle, consider primary T wave abnormality Abnormal ECG When compared with ECG of 23-MAR-2017 00:14, OK interval has increased Incomplete left bundle branch block is now Present Criteria for Septal infarct are no longer Present Testing Performed By Lab - Abbreviation Name Director Address Valid Date Range 24 - [facility] Unknown 03/28/17 2200 - Present Progress Notes - Encounter Notes Notes from 06/27/22 through 06/29/22 Progress Notes by So Lawrence OT at 06/27/2022 9:37 AM Version 1 of 1 Author: So Lawrence OT Specialty: Occupational Therapy Author Type: Occupational Therapist Filed: 06/27/2022 11:01 AM Date of Service: 06/27/2022 9:37 AM Status: Signed Lay Out Maker: So Lawrence OT (Occupational Therapist) Occupational Therapy [...] not assigned to this patient, please call [phone]. 06/27/22 0928 General Session Type Treatment OT Received On [...] ADL task completion. Progress Notes by Carey Esat MD at 06/27/2022 4:57 PM Version 1 of 1 Author: Carey East MD Specialty: Internal Medicine Author Type: Physician Filed: 06/27/2022 5:03 PM Date of Service: 06/27/2022 4:57 PM Status: Signed Lay Out Maker: Carey East MD (Physician) Daily Progress Note Division of Hospital Medicine Name: Adelia Garvin Jr. Today: June 27, 2022 : 1970 Age: 51 y.o. male Admit: 06/04/2022 Bed: [id number] Subjective Chief complaint: CAD s/p PCI, T1DM, [...] 06/27/2022 0745 Gross per 24 hour Intake 98397 ml Output 08709 ml Net -1949 ml Physical Exam Constitutional: [...] transferred to the floor, improving. Atrial fibrillation ([facility]) ([facility]) Assessment & Plan Converted to [...] HFrEF (heart failure with reduced ejection fraction) ([facility]) Assessment & Plan C/b cardiogenic shock requiring impella in the setting of cath and AHRF 2/2 pulmonary edema, now resolved. TTE demonstrating recovered EF 65% with grade I diastolic dysfunction. - metop as above - continue low dose losartan 12.5mg daily, ok per nephro - volume management per PD ESRD (end stage renal disease) ([facility]/HCC) ([facility]) Assessment & Plan - Renal consulted, s/p CRRT in the ICU now back on PD. - Continue vitamins for renal bone mineral disease - continue phoslo Type 1 diabetes mellitus ([facility]) Assessment & Plan A1c well [...] of Service: 06/27/2022 3:50 PM Status: Signed Lay Out Maker: Arleen Andre MD (Physician) ASSESSMENT AND RECOMMENDATIONS ESRD: He is doing well on the current PD regimen. Ultrafilters approximately 9958-1005 ml/day. Continue current regimen Hypokalemia: Start Kcl [...] Type: Continuous Cycling Peritoneal Dialysis Machine Type: IndianStage Pro Dianeal Solution: Dextrose 2.5% in 5000 mL (+ 7.5% last fill) Dwell Time (min): 77 min Drain Time (min): 39 min Initial Drain Volume (mL): 690 mL Last Fill Volume (mL): 785 mL Fill Volume In (mL): 08276 mL Effluent Volume Out (mL): 67106 ml Balance This Exchange (mL): 1944 mL [...] edema I/O last 2 completed shifts: In: 92040 [P.O.:440; Other:86746] Out: 55621 [Urine:300; Other:17423] I have reviewed current medications and the [...] FERRITIN 2,062 (H) 06/07/2022 Arleen Andre MD director maternal child Division of Nephrology Progress Notes by Frank Bowers MD at 06/28/2022 3:30 PM Version 1 of 1 Author: Frank Bowers MD Specialty: Internal Medicine Author Type: Physician Filed: 06/28/2022 3:30 PM Date of Service: 06/28/2022 3:30 PM Status: Signed Lay Out Maker: Frank Bowers MD (Physician) Daily Progress Note Division of Hospital Medicine Name: Adelia Garvin Jr. Today: June 28, 2022 : 1970 Age: 51 y.o. male Admit: 06/04/2022 Bed: [id number] Subjective Chief complaint: NSTEMI Interval History: Pt [...] 06/28/2022 1300 Gross per 24 hour Intake 17207 ml Output 18925 ml Net -851 ml Physical Exam Constitutional: [...] by: Félix Chahal M.D. Assessment/Plan Cardiogenic shock ([facility]) Assessment & Plan Secondary to NSTEMI, s/p Impella since removed on 06/10. Resolved. * NSTEMI (non-ST elevated myocardial infarction) ([facility]) ([facility]) Assessment & Plan With recurrent [...] been accepted ESRD (end stage renal disease) ([facility]) ([facility]) Assessment & Plan - Renal consulted, s/p CRRT in the ICU now back on PD. Tolerated well and nephrology following - Trialysis catheter removed - Continue vitamins for renal bone mineral disease. Type 1 diabetes mellitus ([facility]) Assessment & Plan A1c well [...] increase NPH 45u before PD Atrial fibrillation ([facility]) ([facility]) Assessment & Plan Converted to [...] of Service: 06/29/2022 10:12 AM Status: Signed Lay Out Maker: Frank Bowers MD (Physician) Daily Progress Note Division of Hospital Medicine Name: Adelia Garvin Jr. Today: June 29, 2022 : 1970 Age: 51 y.o. male Admit: 06/04/2022 Bed: [id number] Subjective Chief complaint: NSTEMI Interval History: Pt [...] 06/29/2022 0815 Gross per 24 hour Intake 40587 ml Output 14354 ml Net -664 ml Physical Exam Constitutional: [...] and agrees with it. Electronically signed by: éFlix Chahal M.D. I have independently reviewed and interpreted the following Bg better controlled, some low 200 Negative covid test. Assessment/Plan Cardiogenic shock (HCC) Assessment & Plan Secondary to NSTEMI, s/p Impella since removed on 06/10. Resolved. * NSTEMI (non-ST elevated myocardial infarction) (CMS/HCC) ([facility]) Assessment & Plan With recurrent [...] rehab today ESRD (end stage renal disease) ([facility]) ([facility]) Assessment & Plan - Renal consulted, s/p CRRT in the ICU now back on PD. Tolerated well and nephrology following - Trialysis catheter removed - Continue vitamins for renal bone mineral disease. Type 1 diabetes mellitus ([facility]) Assessment & Plan A1c well [...] start of peritoneal dialysis session Atrial fibrillation ([facility]/HCC) ([facility]) Assessment & Plan Converted to [...] of Service: 06/29/2022 10:13 AM Status: Signed Lay Out Maker: Frank Bowers MD (Physician) Inpatient Discharge Summary BRIEF OVERVIEW Admitting Provider: Catherine Adams MD Discharge Provider: Frank Bowers MD Primary Care Physician at Discharge: Aditya Castro MD [phone] Admission Date: 06/04/2022 Discharge Date: 06/29/2022 Admission Location: [facility] Problems/Diagnoses: Principal Problem: NSTEMI (non-ST elevated myocardial infarction) ([facility]/HCC) ([facility]) Active Problems: Cardiogenic shock (HCC) [...] gout, BEN on CPAP initially presented to [facility] for n/v andchest pain, transferred to [facility] for LHC/PCI, now presenting to CCU s/p complex PCI with impella and intubated. At the OSH he presented with 3d generalized weakness, chills, ROONEY, n/v, chest pain relieved by sublingual ntg. His labs were notable for trop 1.0-->1.09-->0.729, BNP 77540. He had a CT CAP showing cholelithiasis [...] circumflex as optimal treatment, prompting transfer to [facility]. He arrived at [facility] 06/05. EKG showed sinus bradycardia, 1st deg [...] * NSTEMI (non-ST elevated myocardial infarction) (CMS/HCC) ([facility]) With interventions described above. Post-transfer [...] discharge given pressure tolerance. Atrial fibrillation (CMS/HCC) ([facility]) He was in atrial fibrillation [...] HFrEF (heart failure with reduced ejection fraction) ([facility]) He developed cardiogenic shock requiring [...] to metoprolol. ESRD (end stage renal disease) ([facility]) ([facility]) Renal consulted on admission with history of ESRD on PD. While in ICU, temporary dialysis catheter was placed to facilitate CRRT for volume removal. Upon transfer to the floor, PD was continued and tolerated well. He was continued on his home vitamins for renal bone mineral disease and phoslo. Trialysis removed 06/25. Type 1 diabetes mellitus ([facility]) Prior to admission, his A1c [...] REMOVE PERC ARTERIAL VAD (IMPELLA), DIFFERENT SESSION 82173 Other Procedures: Pertinent Test Results: See hospital [...] SARS-CoV-2 Vaccination (12+ YRS) 09/21/21 Generated by [id number] at 06/29/22 11:31 AM Page E OBIA SOLUTION ARCHITECT * Assessment & Plan Note - Frank Bowers MD - 06/29/2022 10:12 AM OBIEE OBIA SOLUTION ARCHITECT Associated Problem(s): Atrial fibrillation (CMS/HCC) (HCC) Converted to NSR overnight on 06/24. CHADsVASc of 4 not on anticoagulation prior to admission. - cardiology consulted - recommended ongoing rate control - holding off on a/c with high risk for bleeding while on DAPT - reduced metop to 25mg BID in the setting of hypotension, HR 70s NSR E OBIA SOLUTION ARCHITECT * Assessment & Plan Note - Frank Bowers MD - 06/29/2022 10:12 AM OBIEE OBIA SOLUTION ARCHITECT Associated Problem(s): Acute on chronic HFrEF (heart failure with reduced ejection fraction) ([facility]) C/b cardiogenic shock requiring impella in the setting of cath and AHRF 2/2 pulmonary edema, now resolved. TTE demonstrating recovered EF 65% with grade I diastolic dysfunction. - metop as above - continue low dose losartan 12.5mg daily, ok per nephro. Tolerating well - volume management per PD E OBIA SOLUTION ARCHITECT * Assessment & Plan Note - Frank Bowers MD - 06/29/2022 10:12 AM OBIEE OBIA SOLUTION ARCHITECT Associated Problem(s): Anemia Stable, likely 2/2 anemia from ESRD, no evidence of bleeding. Underwent CT c/a/p without internal hematoma. - Monitor and trend Hb. E OBIA SOLUTION ARCHITECT * Assessment & Plan Note - Frank Bowers MD - 06/29/2022 10:12 AM OBIEE OBIA SOLUTION ARCHITECT Associated Problem(s): Acute hypoxemic respiratory failure (HCC) Secondary to ACS and flash pulmonary edema, since resolved and extubated on 06/19. Patient passed barium swallow on 06/21. E OBIA SOLUTION ARCHITECT * Assessment & Plan Note - Frank Bowers MD - 06/29/2022 10:12 AM OBIEE OBIA SOLUTION ARCHITECT Associated Problem(s): ESRD (end stage renal disease) ([facility]/HCC) ([facility]) - Renal consulted, s/p CRRT in the ICU now back on PD. Tolerated well and nephrology following - Trialysis catheter removed - Continue vitamins for renal bone mineral disease. E OBIA SOLUTION ARCHITECT * Assessment & Plan Note - Frank Bowers MD - 06/29/2022 10:11 AM OBIEE OBIA SOLUTION ARCHITECT Associated Problem(s): Type 1 diabetes mellitus (HCC) [...] units with start of peritoneal dialysis session E OBIA SOLUTION ARCHITECT * Assessment & Plan Note - Frank Bowers MD - 06/29/2022 10:11 AM OBIEE OBIA SOLUTION ARCHITECT Associated Problem(s): Cardiogenic shock (HCC) Secondary to NSTEMI, s/p Impella since removed on 06/10. Resolved. E OBIA SOLUTION ARCHITECT * Assessment & Plan Note - Frank Bowers MD - 06/29/2022 10:11 AM OBIEE OBIA SOLUTION ARCHITECT Associated Problem(s): NSTEMI (non-ST elevated myocardial infarction) [...] Pt overall improving, DC to rehab today E OBIA SOLUTION ARCHITECT * Subjective & Objective - Frank Bowers MD - 06/29/2022 10:10 AM OBIEE OBIA SOLUTION ARCHITECT Daily Progress Note Division of [facility] Medicine Name: Adelia Garvin Jr. Today: June 29, 2022 : 1970 Age: 51 y.o. male Admit: 06/04/2022 Bed: [id number] Subjective Chief complaint: NSTEMI Interval History: Pt [...] 06/29/2022 0815 Gross per 24 hour Intake 40798 ml Output 94781 ml Net -664 ml Physical Exam Constitutional: [...] controlled, some low 200 Negative covid test. E OBIA SOLUTION ARCHITECT * Plan of Care - [place] [...] to chair, discharge to inpatient rehab today E OBIA SOLUTION ARCHITECT * Summary of Treatment Recommendations Non-Billable - [...] yearly or sooner as indicated by your adult specialist Pending results for primary service or primary care physician to follow up on: None at time of discharge Follow Up Plan: Follow up with endocrinology near his home 1-2 weeks after discharge to reassess glycemic management and adjust insulin pump settings as needed. E OBIA SOLUTION ARCHITECT * Plan of Care - Gucci Macedo, BAR ATTENDANT - 06/29/2022 1:28 AM CST BEN Continue on NPPV E OBIA SOLUTION ARCHITECT * Consults, Subsequent - James Horvath MD - 06/28/2022 5:36 PM OBIEE OBIA SOLUTION ARCHITECT NEPHROLOGY CONSULT SUBSEQUENT VISIT INTERVAL HISTORY: NAEO. [...] Date 06/27/22699 - 06/28/2265806/28/22699 - 06/29/2259 Shift 0994-9636 4415-2351 24 Hour Total 2422-9771 6669-6314 24 Hour Total INTAKE P.O. 400 400 Other 22428 91043 Shift Total(mL/kg) 66156(101.4) 70086(101.4) 400(3.3) 400(3.3) OUTPUT Urine(mL/kg/hr) 200(0.1) 200(0.1) 150 150 Other 55056 51485 Shift Total(mL/kg) 200(1.7) 64774(110.5) 84376(112.2) 150(1.2) 150(1.2) NET -200 -1101 -1301 250 [...] Fellow PGY-4 Consult 1 Service Contact (phone): [phone] After hours and weekends: please page [phone] Cosigned by Arleen Andre MD at 06/28/2022 8:35 PM OBIEE OBIA SOLUTION ARCHITECT E OBIA SOLUTION ARCHITECT E OBIA SOLUTION ARCHITECT Associated attestation - Arleen Andre MD - 06/28/2022 8:35 PM OBIEE OBIA SOLUTION ARCHITECT I saw and examined the patient on 06/28/2022. I have discussed the patient's management with the nephrology fellow/resident. I agree with the findings, assessment and plan of care as documented in thefellow's/resident's note. Additional history, findings, assessment and recommendations, if any, are outlined below. Arleen Andre MD director maternal child Division of Nephrology * Subjective & Objective - Frank Bowers MD - 06/28/2022 3:21 PM OBIEE OBIA SOLUTION ARCHITECT Daily Progress Note Division of Hospital Medicine Name: Adelia Garvin Jr. Today: June 28, 2022 : 1970 Age: 51 y.o. male Admit: 06/04/2022 Bed: [id number] Subjective Chief complaint: NSTEMI Interval History: Pt [...] 06/28/2022 1300 Gross per 24 hour Intake 36899 ml Output 76728 ml Net -851 ml Physical Exam Constitutional: [...] this written report and agrees with it. E OBIA SOLUTION ARCHITECT * Plan of Care - Elsie Gonzalez RN - 06/28/2022 3:16 PM CST Fisher Eel noted patient has been recommended for inpatient rehab by PT/OT. assistant credit manager met withthe patient at bedside to discuss recommendations by therapy and to work on a potential discharge disposition plan. Fisher Eel provided education to patient on inpt rehab facilities and the rehabilitation process.Patient reported he was interested in short term inpatient rehab. assistant credit manager explained to the patient the choices were limited due to his PD. Per patient request, CM sent referrals to inpatient rehab facilities near [facility]. Facilities in [place] unable to accept PD at this time. CM sent referrals to [facility]. [facility] is able to accept PD patient and they have beds available tomorrow. Per patient choice will transfer to [facility] tomorrow. [facility] intake coord and care team notified of patient choice. E OBIA SOLUTION ARCHITECT * Consults, Subsequent - Dora Delarosa NP - 06/28/2022 1:30 PM CST Endocrinology & Diabetes Progress Note Patient: Adelia Garvin Jr., 51 y.o. male (: 1970) Room: [place] [address] ( ) LOS: 24 Adelia Garvin Jr. [...] labs, imaging, and diagnostics independently reviewed in [facility] and commented on below. Lab Results 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, complicated by ESRD on PD, CAD s/p PCI, CHF - HbA1c 7.4% - Uses Omnipod and Dexcom G6 at home, not currently on this- doesn't have the supplies -On significantly higher basal rates on pump at night due to peritoneal dialysis -home settings: Basal rate 0330 >>1.7 0800 >> 0.8 2000 >> 5.8 ICR1:6.5 ISF1:25 [id number] TIA 4 Over the previous 24 hours, [...] recommend decreasing the basal insulin dose from 3505-9319 today. We will continue to intensely monitor [...] ## Discharge Planning - Follow-up with home journalism internship -- Dora Delarosa NP Endocrinology, Metabolism, & Lipid Research Contact Info: New Consults: [phone]) General Endocrine (Non-Diabetes): [phone] (Check 'Treatment Team' assignment for Diabetes 1 vs 2 vs 3) Diabetes 1: Diabetes Fellow: [phone] Diabetes 2: Dora Delarosa HEEL EMERY BUFFER: [phone] Diabetes 3: See Treatment Team Provider (or call Dora Delarosa, above) Diabetes After-Hours & Weekends: Diabetes Fellow E OBIA SOLUTION ARCHITECT * Plan of Care - Elsie Gonzalez RN - 06/28/2022 1:24 PM CST CM sent 5 more referrals in [facility] for inpt rehab- awaiting response from facility that can accept PD patients E OBIA SOLUTION ARCHITECT * Plan of Care - [place] [...] up to chair, monitor tele and vitals E OBIA SOLUTION ARCHITECT * Plan of Care - Sasha Leonard [...] on-going diet recs, safe swallow strategies, and LICENSING SPECIALIST POC, they verbalized understanding and agreement. ST to s/o. E OBIA SOLUTION ARCHITECT * Hospital Course - Carey East MD - 06/27/2022 9:31 PM OBIEE OBIA SOLUTION ARCHITECT Adelia Garvin Jr. is 51 y.o. male [...] * NSTEMI (non-ST elevated myocardial infarction) (CMS/HCC) ([facility]) With interventions described above. Post-transfer [...] and atorvastatin as well. Atrial fibrillation (CMS/HCC) ([facility]) He was in atrial fibrillation [...] HFrEF (heart failure with reduced ejection fraction) ([facility]) He developed cardiogenic shock requiring [...] to metoprolol. ESRD (end stage renal disease) ([facility]) ([facility]) Renal consulted on admission with history of ESRD on PD. While in ICU, temporary dialysis catheter was placed to facilitate CRRT for volume removal. Upon transfer to the floor, PD was continued and tolerated well. He was continued on his home vitamins for renal bone mineral disease and phoslo. Trialysis removed 06/25. Type 1 diabetes mellitus ([facility]) Prior to admission, his A1c [...] barium swallow on 06/21. Remained on RA. E OBIA SOLUTION ARCHITECT E OBIA SOLUTION ARCHITECT * ECIN Note - Elsie Gonzalez RN [...] Principal Problem: NSTEMI (non-ST elevated myocardial infarction) ([facility]/HCC) (HCC) [I21.4] Elopement Risk Date/Time Risk/Reason for Elopement User 06/04/22 2300 No risk HCE 06/04/22 2100 No risk IRP Intake/Output 06/24/22 0700 - 06/25/22 0659 06/25/22 0700 - 06/26/22 0659 06/26/22 0700 - 06/27/22 0659 06/27/22 0700 - 06/28/22 0659 Total Total 6648-4161 8117-8171 3912-0256 Total 3735-1717 6105-9158 5589-1364 Total Intake (ml) 02240 87528 340 100 37985 15406 -- -- -- -- Output (ml) 90777 84192 300 -- 34467 19732 200 -- -- 200 Net (ml) -2404 [...] -- SpO2 -- 92 % 96 % E OBIA SOLUTION ARCHITECT * Consults, Subsequent - Dora Delarosa NP - 06/27/2022 1:13 PM CST Endocrinology & Diabetes Progress Note Patient: Adelia Garvin Jr., 51 y.o. male (: 1970) Room: [place] [address] [address] ( ) LOS: 23 Adelia Garvin Jr. [...] >> 0.8 2000 >> 5.8 ICR1:6.5 ISF1:25 [id number] TIA 4 Over the previous 24 hours, [...] ## Discharge Planning - Follow-up with home journalism internship -- Dora Delarosa NP Endocrinology, Metabolism, & Lipid Research Contact Info: New Consults: [phone]) General Endocrine (Non-Diabetes): [phone] (Check 'Treatment Team' assignment for Diabetes 1 vs 2 vs 3) Diabetes 1: Diabetes Fellow: [phone] Diabetes 2: Doar Delarosa NP: [phone] Diabetes 3: See Treatment Team Provider (or call Dora Delarosa, above) Diabetes After-Hours & Weekends: Diabetes Fellow E OBIA SOLUTION ARCHITECT * Plan of Care - Adelita Self RN - 06/26/2022 3:00 PM CST Problem: Lack of Knowledge: Goal: Knowledge of disease or condition will improve Outcome: Progressing Goals: Clinical Goals for the Shift: up to chair Summary: Up to chair for about 2 hours. E OBIA SOLUTION ARCHITECT * Plan of Care - Gucci Macedo, BAR ATTENDANT - 06/26/2022 1:28 AM CDT BEN Continue [...] 06/25/2259 06/25/22 07 - 06/26/22 0659 Shift 8942-5498 9585-8488 24 Hour Total 2266-0491 7438-9871 24 Hour Total INTAKE Other 89892 17485 Shift Total(mL/kg) 89493(101.9) 40528(101.9) OUTPUT Other 97170 62287 Shift Total(mL/kg) 99332(122) 31214(122) NET -2404 -2404 Weight (kg) 119 119.7 [...] Fellow PGY-4 Consult 1 Service Contact (phone): [phone] After hours and weekends: please page [phone] Cosigned by Miriam Driver MD at 06/28/2022 8:11 AM OBIEE OBIA SOLUTION ARCHITECT E OBIA SOLUTION ARCHITECT Associated attestation - Miriam Driver MD - 06/28/2022 8:11 AM OBIEE OBIA SOLUTION ARCHITECT I have seen and examined the patient on 06/25/22. I agree with the findings and plan of care as documented in the nephrology fellow's note. Miriam Driver MD Barrel Leveler Division of Nephrology * Plan of Care - Adelita Self, LUAN - 06/25/2022 10:00 AM CDT Problem: Health Behavior: Goal: Understanding of discharge needs will improve Outcome: Progressing Goals: Clinical Goals for the Shift: up to chair Summary: Up to chair for short period this am. * Plan of Care - Wandy Garay, BAR ATTENDANT - 06/25/2022 4:45 AM CDT NPPV Situation: [...] Hour Total 24 Hour Total INTAKE Other 88206 72971 IV Piggyback 250 250 Shift Total(mL/kg) 250(2.1) 57500(101.5) 01139(103.6) OUTPUT Urine(mL/kg/hr) 250(0.2) 250(0.1) Emesis/NG output 0 0 Other 29808 72896 Stool 0 0 Shift Total(mL/kg) 84755(106.5) 10142(106.5) NET 152 -101 -531 Weight (kg) 119.9 119.9 119.9 119 119 [...] Fellow PGY-4 Consult 1 Service Contact (phone): [phone] After hours and weekends: please page [phone] Cosigned by Miriam Driver MD at 06/24/2022 8:25 PM CDT Associated attestation - Miriam Driver MD - 06/24/2022 8:25 PM CDT I have seen and examined the patient on 06/24/22. I agree with the findings and plan of care as documented in the nephrology fellow's note. Agree with endocrinology. Continue PD settings. Miriam Driver MD Barrel Leveler Division of Nephrology * Plan of Care [...] hygiene prior to po Specialty Instructions/Modifications: alert LICENSING SPECIALIST if pt coughing with meals LICENSING SPECIALIST noted pt was advanced to regular [...] updated diet recs, safe swallow strategies, and LICENSING SPECIALIST POC, they verbalized understanding and agreement. ST will briefly continue to follow. * Consults, Subsequent - Dora Delarosa NP - 06/24/2022 12:29 PM CDT Endocrinology & Diabetes Progress Note Patient: Adelia Garvin Jr., 51 y.o. male (: 1970) Room: [place] [address] [address] ( ) LOS: 20 Adelia Garvin Jr. 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, complicated by ESRD on PD, CAD s/p PCI, CHF - HbA1c 7.4% - Uses Omnipod and Dexcom G6 at home, not currently on this- doesn't have the supplies -On significantly higher basal rates on pump at night due to peritoneal dialysis -home settings: Basal rate 0330 >>1.7 0800 >> 0.8 2000 >> 5.8 ICR1:6.5 ISF1:25 [id number] TIA 4 Over the previous 24 hours, [...] ## Discharge Planning - Follow-up with home journalism internship -- Dora Delarosa NP Endocrinology, Metabolism, & Lipid Research Contact Info: New Consults: [phone]) General Endocrine (Non-Diabetes): [phone] (Check 'Treatment Team' assignment for Diabetes 1 vs 2 vs 3) Diabetes 1: Diabetes Fellow: [phone] Diabetes 2: Dora Delarosa NP: [phone] Diabetes 3: See Treatment Team Provider (or [...] assistance, please check the treatment team in [facility] for the assigned counseling case manager or contact the weekend Case Management phone [...] 06/24/2022 0536 Gross per 24 hour Intake 68466 ml Output 93597 ml Net -347 ml Physical Exam: General: [...] ESRD on PD who was transferred to [facility] for an impella-supported complex PCI on [...] us if questions arise. Will Villavicencio MD Specifications Checker 11:36 AM 06/24/22 Cosigned by Musa Fernando MD at 06/25/2022 9:04 PM CDT Associated attestation - Musa Fernando MD - 06/25/2022 9:04 PM CDT 06/24/2022 I have personally seen and examined this pt with resident/Fellow/HEEL EMERY BUFFER . I have reviewed History/Physical exam and plan for management. I agree with it . Musa Fernando M.D., F.A.C.C. liquid natural gas plant operator [facility] [employer] [facility]. [place] This note contains information and [...] about verbage above please contact me at [phone]. . * Plan of Care - [place] [...] 06/23/22 0606/23/22 07 - 06/24/22 0659 Shift 7490-8580 24 Hour Total 9758-9367 2688-9023 24 Hour Total INTAKE Other 95394 78683 IV Piggyback 250 250 Shift Total(mL/kg) 95035(101.2) 09049(101.2) 250(2.1) 250(2.1) OUTPUT Urine(mL/kg/hr) 450 450 Other 66444 90420 Shift Total(mL/kg) 96183(122.6) 46981(122.6) NET -2573 -2574 250 250 Weight (kg) 120.5 120.5 119.9 [...] Fellow PGY-4 Consult 1 Service Contact (phone): [phone] After hours and weekends: please page [phone] Cosigned by Miriam Driver MD at 06/23/2022 8:48 PM CDT Associated attestation - Miriam Driver MD - 06/23/2022 8:48 PM CDT I have seen and examined the patient on 06/23/22. I agree with the findings and plan of care as documented in the nephrology fellow's note. Miriam Driver MD Barrel Leveler Division of Nephrology * Assessment & Plan [...] dc tomorrow as pt has been accepted E OBIA SOLUTION ARCHITECT E OBIA SOLUTION ARCHITECT * Assessment & Plan Note - Frank Bowers MD - 06/23/2022 4:52 PM CDT Associated Problem(s): Atrial fibrillation (CMS/HCC) ([facility]) Converted to NSR overnight on 06/24. CHADsVASc of 4 not on anticoagulation prior to admission. - cardiology consulted - recommended ongoing rate control - holding off on a/c with high risk for bleeding while on DAPT - reduced metop to 25mg BID in the setting of hypotension, HR 70s NSR E OBIA SOLUTION ARCHITECT * Assessment & Plan Note - Frank Bowers MD - 06/23/2022 4:47 PM CDT Associated Problem(s): Acute on chronic HFrEF (heart failure with reduced ejection fraction) ([facility]) C/b cardiogenic shock requiring impella in the setting of cath and AHRF 2/2 pulmonary edema, now resolved. TTE demonstrating recovered EF 65% with grade I diastolic dysfunction. - metop as above - continue low dose losartan 12.5mg daily, ok per nephro. Tolerating well - volume management per PD E OBIA SOLUTION ARCHITECT * Assessment & Plan Note - Frank Bowers MD - 06/23/2022 4:47 PM CDT Associated Problem(s): ESRD (end stage renal disease) (CMS/HCC) ([facility]) - Renal consulted, s/p CRRT in the ICU now back on PD. Tolerated well and nephrology following - Trialysis catheter removed - Continue vitamins for renal bone mineral disease. E OBIA SOLUTION ARCHITECT * Assessment & Plan Note - Carey Esat MD - 06/23/2022 4:47 PM CDTAssociated Problem(s): [...] resistant SSI increase NPH 45u before PD E OBIA SOLUTION ARCHITECT * Consults, Subsequent - Dora Delarosa NP - 06/23/2022 1:48 PM CDT Endocrinology & Diabetes Progress Note Patient: Adelia Garvin Jr., 51 y.o. male (: 1970) Room: [place] [address] ( ) LOS: 19 Adelia Garvin Jr. [...] There were no acute events overnight. Mr. Gavrin reports his appetite is so- so . 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, complicated by ESRD on PD, CAD s/p PCI, CHF - HbA1c 7.4% - Uses Omnipod and Dexcom G6 at home, not currently on this- doesn't have the supplies -On significantly higher basal rates on pump at night due to peritoneal dialysis -home settings: Basal rate 0330 >>1.7 0800 >> 0.8 2000 >> 5.8 ICR1:6.5 ISF1:25 [id number] TIA 4 Over the previous 24 hours, [...] ## Discharge Planning - Follow-up with home journalism internship -- Dora Delarosa NP Endocrinology, Metabolism, & Lipid Research Contact Info: New Consults: [phone]) General Endocrine (Non-Diabetes): [phone] (Check 'Treatment Team' assignment for Diabetes 1 vs 2 vs 3) Diabetes 1: Diabetes Fellow: [phone] Diabetes 2: Dora Delarosa NP: [phone] Diabetes 3: See Treatment Team Provider (or [...] 0659 06/22/22 07 - 06/23/22 0659 Shift 8052-7046 24 Hour Total 0671-2917 8860-3575 24 Hour Total INTAKE I.V.(mL/kg) 133.2(1.1) Other 78801 75576 NG/GT 100 Shift Total(mL/kg) 38849(93.8) 56372.2(95.7) OUTPUT Urine(mL/kg/hr) 450 450 Emesis/NG output 0 Other 22830 67723 Shift Total(mL/kg) 48540(108.4) 12851(108.4) 450(3.7) 450(3.7) NET -1759 -1525.8 -450 -450 [...] Fellow PGY-4 Consult 1 Service Contact (phone): [phone] After hours and weekends: please page [phone] Cosigned by Miriam Driver MD at 06/23/2022 11:57 AM CDT Associated attestation - Miriam Driver MD - 06/23/2022 11:57 AM CDT I have seen and examined the patient on 06/22/22. I agree with the findings and plan of care as documented in the nephrology fellow's note. Miriam Driver MD Barrel Leveler Division of Nephrology * Assessment & Plan [...] for n/v and chest pain, transferred to [facility] for LHC/PCI, who presented to CCU s/p complex PCI with impella and intubated. Now extubated, tolerating PO intake, on home PD. Arrived at [place] from OSH on 06/05. EKG showed sinus [...] Elsie of the CREU service. QUESTIONS? Call [phone] * Subjective & Objective - Luiz Lewis [...] at 06/22/20221944 Gross per 24 hour Intake 22784 ml Output 79452 ml Net -2209 ml Constitutional - chronically [...] made/in place: 51 yo male transferred to [facility] ICU for complex PCI with impella.Unable [...] Patient and/or family are agreeable with plan. assistant credit manager will continue to follow and assist with discharge planning as needed. If any further discharge needs arise, please contact the covering counseling case manager. Rossi Hay RN * Consults, Subsequent - Dora Delarosa NP - 06/22/2022 12:39 PM CDT Endocrinology & Diabetes Progress Note Patient: Adelia Garvin Jr., 51 y.o. male (: 1970) Room: [place] [address] ( ) LOS: 18 Adelia Garvin Jr. [...] night. Diet: Adult Diet Restricted; Dysphagia 2 ([facility]); Consistent Carbohydrate; Renal Over the previous [...] >> 0.8 2000 >> 5.8 ICR1:6.5 ISF1:25 [id number] TIA 4 Over the previous 24 hours, [...] ## Discharge Planning - Follow-up with home journalism internship -- Dora Delarosa NP Endocrinology, Metabolism, & Lipid Research Contact Info: New Consults: [phone] (-[phone]) General Endocrine (Non-Diabetes): [phone] (Check 'Treatment Team' assignment for Diabetes 1 vs 2 vs 3) Diabetes 1: Diabetes Fellow: [phone] Diabetes 2: Dora Delarosa NP: [phone] Diabetes 3: See Treatment Team Provider (or [...] 0659 06/21/22 07 - 06/22/22 0659 Shift 6015-0989 0021-6827 24 Hour Total 4323-6083 7190-6176 24 Hour Total INTAKE I.V.(mL/kg) 225(1.8) 399.6(3.4) [...] Fellow PGY-4 Consult 1 Service Contact (phone): [phone] After hours and weekends: please page [phone] Cosigned by Miriam Driver MD at 07/04/2022 10:00 AM OBIEE OBIA SOLUTION ARCHITECT E OBIA SOLUTION ARCHITECT Associated attestation - Miriam Driver MD - 07/04/2022 10:00 AM OBIEE OBIA SOLUTION ARCHITECT I have seen and examined the patient on 06/21/22. I agree with the findings and plan of care as documented in the nephrology Fellow's note. Miriam Driver MD Barrel Leveler Division of Nephrology * Consults, Subsequent - Dora Delarosa NP - 06/21/2022 1:09 PM CDT Endocrinology & Diabetes Progress Note Patient: Adelia Garvin Jr., 51 y.o. male (: 1970) Room: [place] [id number] ( ) LOS: 17 Adelia Garvin Jr. [...] >> 0.8 2000 >> 5.8 ICR1:6.5 ISF1:25 [id number] TIA 4 Over the previous 24 hours, [...] ## Discharge Planning - Follow-up with home journalism internship -- Dora Delarosa NP Endocrinology, Metabolism, & Lipid Research Contact Info: New Consults: [phone] (-[phone]) General Endocrine (Non-Diabetes): [phone] (Check 'Treatment Team' assignment for Diabetes 1 vs 2 vs 3) Diabetes 1: Diabetes Fellow: [phone] Diabetes 2: Dora Delarosa HEEL EMERY BUFFER: [phone] Diabetes 3: See Treatment Team Provider (or [...] dialysis nursing of the conversation. I am precision agriculture specialist tonight, please do not hesitate to page if plans change. Chandrakant Nava MD Nephrology Fellow, PGY-4 Night Service [phone]. * Consults, Subsequent - Carol Sanchez MD - 06/20/2022 1:59 PM CDT Endocrinology & Diabetes Progress Note Patient: Adelia Garvin Jr., 51 y.o. male (: 1970) Room: [id number] ( ) LOS: 16 Adelia Garvin Jr. 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, complicated by ESRD on PD, CAD s/p PCI, CHF - HbA1c 7.4% - Uses Omnipod and Dexcom G6 at home, not currently on this- doesn't have the supplies -On significantly higher basal rates on pump at night due to peritoneal dialysis -home settings: Basal rate 0330 >>1.7 0800 >> 0.8 2000 >> 5.8 ICR1:6.5 ISF1:25 [id number] TIA 4 High insulin requirements in setting [...] ## Discharge Planning - Follow-up with home journalism internship -- Carol Sanchez MD Endocrinology, Metabolism, & Lipid Research Contact Info: New Consults: [phone]) General Endocrine (Non-Diabetes): [phone] (Check 'Treatment Team' assignment for Diabetes 1 vs 2 vs 3) Diabetes 1: Diabetes Fellow: [phone] Diabetes 2: Dora Delarosa, HEEL EMERY BUFFER: [phone] Diabetes 3: See Treatment Team Provider (or call Dora Delarosa, above) Diabetes After-Hours & Weekends: Diabetes Fellow * Plan of Care - Milly Cooper RN - 06/20/2022 12:41 PM CDT Rounds with MD, counseling case manager, social work, & charge nurse Medical chart [...] Patient and family are agreeable with plan. assistant credit manager will continue to follow and assist [...] eventually back to PD Miriam Driver MD [facility] Division of Nephrology * Consults, Subsequent - [...] AM Result Value Ref Range Product code [id number] Unit Number [id number] Product Blood Type APOS Dispense Status ISSUED [...] AM Result Value Ref Range Product code Q3989X10 Unit Number [id number] Product Blood Type APOS Dispense Status RETURNED [...] not require specific follow up. Please call precision agriculture specialist pulmonary consult fellow with additional questions or [...] findings: I/O last 2 completed shifts: In: 53101.4 [I.V.:1014.4; Other:29552; NG/GT:190; IV Piggyback:420] Out: 36773 [Other:04370] I have reviewed current medications and the [...] Nephrology * Subjective & Objective - Bobby Mayr MD - 06/19/2022 2:03 PM CDT Pulmonary [...] 93% I/O last 2 completed shifts: In: 61903.4 [I.V.:1014.4; Other:25554; NG/GT:190; IV Piggyback:420] Out: 61851 [Other:27900] I/O this shift: In: 480.2 [I.V.:480.2] Out: [...] 0.9% I/O last 2 completed shifts: In: 40509.3 [I.V.:1388.3; Other:04856; NG/GT:90; IV Piggyback:110] Out: 79313 [Other:66873; Stool:170] Objective Vitals: Vitals: 06/18/22 1508 BP: [...] Pulmonary will continue to follow. Please call precision agriculture specialist pulmonary consult fellow with additional questions or [...] Post Procedure Note Attending: Dr Payam Allison Cork Insulation Installer: Dr. Aric Whitlock Sedation/Anesthesia: Local Pre-Op/Pre-Procedure Diagnosis: [...] - 06/18/2259 06/18/22699 - 06/19/22 0659 Shift 0439-9780 7869-6727 24 Hour Total 0937-0695 0876-3775 24 Hour Total INTAKE I.V.(mL/kg) 953(7.3) 435.3(3.3) 1388.3(10.6) 189(1.4) 189(1.4) Other 7498 7483 97347 53061 43126 NG/GT 90 90 160 160 IV Piggyback 110 110 Shift Total(mL/kg) 8561(65.8) 8008.3(61.1) 10477.3(126.4) 19098(94.3) 26559(94.3) OUTPUT Urine(mL/kg/hr) 0(0) 0(0) Other 9865 5584 78111 81355 72335 Stool 170 170 Shift Total(mL/kg) 9865(75.8) 5754(43.9) 01548(119.1) 96878(115.6) 37737(115.6) NET -1304 2254.3 950.3 -2790 -2790 Weight [...] Fellow PGY-4 Consult 1 Service Contact (phone): [phone] After hours and weekends: please page [phone] Cosigned by Miriam Driver MD at 06/18/2022 7:03 PM CDT Associated attestation - Miriam Driver MD - 06/18/2022 7:03 PM CDT I have seen and examined the patient on 06/18/2022. I agree with the findings and plan of care as documented in the nephrology Fellow's note. Miriam Driver MD [facility] Division of Nephrology * Pre-Procedure Note - [...] Diabetes mellitus type I (HCC) Dialysis patient ([facility]) (HCC) ESRD on dialysis ([facility]) ([facility]) GERD (gastroesophageal reflux disease) Hyperlipidemia [...] with the patient and/or their sales representative leather goods. All questions answered and they agree to [...] 06/16/22699 - 06/17/2265806/17/22699 - 06/18/22 0659 Shift 2843-4726 5727-7570 24 Hour Total 7671-0735 2538-0590 24 Hour Total INTAKE I.V.(mL/kg) 856.1(6.8) 544.4(4.3) [...] Fellow PGY-4 Consult 1 Service Contact (phone): [phone] After hours and weekends: please page [phone] Cosigned by Miriam Driver MD at 06/17/2022 7:02 PM CDT Associated attestation - Miriam Driver MD - 06/17/2022 7:02 PM CDT I have seen and examined the patient on 06/17/2022. I agree with the findings and plan of care as documented in the nephrology Fellow's note. Miriam Driver MD [facility] Division of Nephrology * Consults, Subsequent - [...] Pulmonary will continue to follow. Please call precision agriculture specialist pulmonary consult fellow with additional questions or [...] Jr., 51 y.o. male (: 1970) Room: [place] [address] ( ) LOS: 13 Adelia Garvin Jr. 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, complicated by ESRD on PD, CAD s/p PCI, CHF - HbA1c 7.4% - Uses Omnipod and Dexcom G6 at home, not currently on this- doesn't have the supplies -On significantly higher basal rates on pump at night due to peritoneal dialysis -home settings: Basal rate 0330 >>1.7 0800 >> 0.8 2000 >> 5.8 ICR1:6.5 ISF1:25 [id number] TIA 4 High insulin requirements in setting [...] ## Discharge Planning - Follow-up with home journalism internship -- Delmar Longo MD PhD Endocrinology, Metabolism, & Lipid Research Contact Info: New Consults: [phone]) General Endocrine (Non-Diabetes): [phone] (Check 'Treatment Team' assignment for Diabetes 1 vs 2 vs 3) Diabetes 1: Diabetes Fellow: [phone] Diabetes 2: Dora Delarosa, HEEL EMERY BUFFER: [phone] Diabetes 3: See Treatment Team Provider (or call Dora Delarosa, above) Diabetes After-Hours & Weekends: Diabetes Fellow * Plan of Care - Jersey Castano, BAR ATTENDANT - 06/17/2022 12:49 AM CDT Mechanical Ventilation [...] 06/15/22 07 - 06/16/2265806/16/22699 - 06/17/2259 Shift [id number] 24 Hour Total 8770-7483 5007-2337 24 Hour Total INTAKE I.V.(mL/kg) 624.4(5.1) 669(5.4) 1293.4(10.3) 729.7(5.8) 729.7(5.8) Other 1000 13597 90884 NG/GT 275 275 100 100 Shift Total(mL/kg) 1899.4(15.4) 66288(102.8) 30429.4(118) 829.7(6.6) 829.7(6.6) OUTPUT Urine(mL/kg/hr) 0(0) 0(0) 0(0) 0 0 Other 05607 60137 Shift Total(mL/kg) 0(0) 54350(96.7) 15615(96.7) 0(0) 0(0) NET 1899.4 768 2667.4 829.7 [...] Fellow PGY-4 Consult 1 Service Contact (phone): [phone] After hours and weekends: please page [phone] Cosigned by Miriam Driver MD at 06/16/2022 [...] now due to hyperglycemia. Miriam Driver MD [facility] Division of Nephrology * Pre-Procedure Note - [...] been closed and the order cancelled in [facility]. Thank you for the opportunity to [...] ramelteon I/O last 2 completed shifts: In: 27938.4 [I.V.:1293.4; Other:06483; NG/GT:275] Out: 59375 [Other:82675] Objective Vitals: Vitals: 06/16/221199 BP: Pulse: 81 [...] Pulmonary will continue to follow. Please call precision agriculture specialist pulmonary consult fellow with additional questions or [...] Jr., 51 y.o. male (: 1970) Room: [place] [address] ( ) LOS: 12 Adelia Garvin Jr. 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, complicated by ESRD on PD, CAD s/p PCI, CHF - HbA1c 7.4% - Uses Omnipod and Dexcom G6 at home, not currently on this- doesn't have the supplies -On significantly higher basal rates on pump at night due to peritoneal dialysis -home settings: Basal rate 0330 >>1.7 0800 >> 0.8 2000 >> 5.8 ICR1:6.5 ISF1:25 [id number] TIA 4 Currently on TF Glucerna 1.5 ( CHO 133) Recommendations: - please increase Lantus to 40 units qAM - Humalog 10 units Q4hrs - NPH 15 units at the beginning of PD session - Resistant correctional Humalog q4 hrs - POC glucoses q4hrs Discharge recommendations: - TBD ## Discharge Planning - Follow-up with home journalism internship -- Kellee Magallanes MD Endocrinology, Metabolism, & Lipid Research Contact Info: New Consults: [phone]) General Endocrine (Non-Diabetes): [phone] (Check 'Treatment Team' assignment for Diabetes 1 vs 2 vs 3) Diabetes 1: Diabetes Fellow: [phone] Diabetes 2: Dora Delarosa, HEEL EMERY BUFFER: [phone] Diabetes 3: See Treatment Team Provider (or [...] visit to the patient. Bryce Langley MD, [facility] Barrel Levelerdirector maternal child Division of Endocrinology, Metabolism & Lipid Research [...] 06/14/22699 - 06/15/2265806/15/22699 - 06/16/22 0659 Shift 5504-8683 2466-6564 24 Hour Total 6723-1392 5824-9860 24 Hour Total INTAKE I.V.(mL/kg) 520.5(4) 498.9(4.1) 1019.4(8.3) 624.4(5.1) 624.4(5.1) NG/GT 931 891 5070 275 275 Shift Total(mL/kg) 905.5(7) 1278.9(10.4) 2184.4(17.8) [...] Fellow PGY-4 Consult 1 Service Contact (phone): [phone] After hours and weekends: please page [phone] Cosigned by Miriam Driver MD at 06/15/2022 7:33 PM CDT Associated attestation - Miriam Driver MD - 06/15/2022 7:33 PM CDT I have seen and examined the patient on 06/15/2022. I agree with the findings and plan of care as documented in the nephrology Fellow's note. Miriam Driver MD [facility] Division of Nephrology * Plan of Care [...] 06/14/2022 2:12 PM CDT Rounds with MD, counseling case manager, social work, & charge nurse Medical chart [...] Patient and family are agreeable with plan. assistant credit manager will continue to follow and assist with discharge planning as needed * Consults, Subsequent - Miriam Driver MD - 06/14/2022 1:58 PM CDT Nephrology SLED/CRRT Procedure Note Date of Service: 06/14/2022 I saw and evaluated the patient during CRRT. Indication for BAR ATTENDANT: ESRD Dialysis access: LIJ Trialysis catheter My [...] stable On systemic heparin Miriam Driver MD [facility] [facility] Division of Nephrology Consult 1: After 4 [...] Pulmonary will continue to follow. Please call precision agriculture specialist pulmonary consult fellow with additional questions or [...] evaluated the patient during CRRT. Indication for BAR ATTENDANT: ESRD Dialysis access: LIJ Trialysis catheter My [...] Jr., 51 y.o. male (: 1970) Room: [place] [address] [address] ( ) LOS: 9 Adelia Garvin Jr. is a 51 y.o. male with PMHx CHF (EF 50% in 2017), atrial fibrillation not on OAC, HTN/HLD, CAD s/p PCI, ESRD on PD, hyperparathyroidism presenting with weakness, N/V, diarrhea and chest pain. He is scheduled for [facility] on 06/06. Diabetes service consulted for T1DM [...] >> 0.8 2000 >> 5.8 ICR1:6.5 ISF1:25 [id number] TIA 4 Currently on TF Glucerna 1.5 ( CHO 133) Recommendations: - please decrease Lantus to 30 units qAM - Humalog 5 units Q4hrs - Resistant correctional Humalog q4 hrs - POC glucoses q4hrs Discharge recommendations: Start Omnipod insulin pump at pre-hospital settings #Acute hypoxic respiratory failure #ESRD on PD at home - on CRRT ## Discharge Planning - Follow-up with home journalism internship We will sign off, we are happy to come back on board once he is back on his PD -- Kellee Magallanes MD Endocrinology, Metabolism, & Lipid Research Contact Info: New Consults: [phone]) General Endocrine (Non-Diabetes): [phone] (Check 'Treatment Team' assignment for Diabetes 1 vs 2 vs 3) Diabetes 1: Diabetes Fellow: [phone] Diabetes 2: Dora Delarosa, HEEL EMERY BUFFER: [phone] Diabetes 3: See Treatment Team Provider (or call Dora Delarosa, above) Diabetes After-Hours & Weekends: Diabetes Fellow Cosigned by Bryce Langley MD at 06/13/2022 12:55 PM CDT Associated attestation - Brcye Langley MD - 06/13/2022 12:55 PM CDT [...] discussion with the patient. Bryce Langley MD, [facility] Barrel Levelerdirector maternal child Division of Endocrinology, Metabolism & Lipid Research [...] evaluated the patient during CRRT. Indication for BAR ATTENDANT: ESRD Dialysis access: LIJ Trialysis catheter My [...] scale Q4h Ayah Hoang MD Endocrinology Fellow [phone] Cosigned by Ann Boston MD at 06/12/2022 [...] unit/mL injection 33 Units, 33 Units, subcutaneous, [facility] Rohit, MD, 33 Units at 06/12/22 0837 insulin lispro (HumaLOG, ADMELOG) 100 unit/mL injection 0-10 Units, 0-10 Units, subcutaneous, [facility]H [facility] Roh[facility], MD, 4 Units at 06/12/22 [...] mg/mL infusion, 0-50 mcg/kg/min, intravenous, Titrated, Jeffrey Grene MD, Last Rate: 16.9 mL/hr at 06/12/22 [...] chloride 0.9% infusion, 10 mL/hr, intravenous, Continuous, Jeffrye Green MD, Last Rate: 10 mL/hr at [...] diaphragm with the tip excluded from the [id number]. Left internal jugular catheter projects at superior [...] scale Q4h Ayah Hoang MD Endocrinology Fellow [phone] Cosigned by Ann Boston MD at 06/12/2022 [...] evaluated the patient during CRRT. Indication for BAR ATTENDANT: ESRD Dialysis access: LIJ Trialysis catheter My [...] this interval not displayed. Vonnie Cody MD director maternal child Division of Nephology Consult 1: After 4 [...] evaluated the patient during CRRT. Indication for BAR ATTENDANT: ESRD Dialysis access: LIJ Trialysis catheter My [...] this interval not displayed. Vonnie Cody MD director maternal child Division of Nephology Consult 1: After 4 PM on , after 12 PM on Monday, and all day Monday, please contact on-call renal fellow at with questions. * Consults, Subsequent - Kellee Magallanes MD - 06/10/2022 1:00 PM CDT Endocrinology & Diabetes Progress Note Patient: Adelia Garvin Jr., 51 y.o. male (: 1970) Room: [place] [address] ( ) LOS: 6 Adelia Garvin Jr. 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, complicated by ESRD on PD, CAD s/p PCI, CHF - HbA1c 7.4% - Uses Omnipod and Dexcom G6 at home, not currently on this- doesn't have the supplies -On significantly higher basal rates on pump at night due to peritoneal dialysis -home settings: Basal rate 0330 >>1.7 0800 >> 0.8 2000 >> 5.8 ICR1:6.5 ISF1:25 [id number] TIA 4 Recommendations: - Lantus 33 units [...] ## Discharge Planning - Follow-up with home journalism internship -- Kellee Magallanes MD Endocrinology, Metabolism, & Lipid Research Contact Info: New Consults: [phone]) General Endocrine (Non-Diabetes): [phone] (Check 'Treatment Team' assignment for Diabetes 1 vs 2 vs 3) Diabetes 1: Diabetes Fellow: [phone] Diabetes 2: Dora Delarosa, HEEL EMERY BUFFER: [phone] Diabetes 3: See Treatment Team Provider (or [...] discussion with the patient. Bryce Langley MD, [facility] Barrel Levelerdirector maternal child Division of Endocrinology, Metabolism & Lipid Research [...] injection 0-10 Units 0-10 Units subcutaneous Q4H [facility] Meme Castro MD 2 Units at 06/10/22 0353 [Held by Provider] isosorbide mononitrate ER (IMDUR) extended release tablet 30 mg 30 mg oral DailyDewey Parra MD 30 mg at 06/07/22 0801 lidocaine (LIDODERM) 5 % patch 1 patch 1 patch transdermal Daily PRN Dewey Parra MD meropenem (MERREM) 1,000 mg/110 mL in sodium chloride 0.9% (premix) 1,000 mg 1,000 mg intravenous Q12H [facility] Tyra De La Torre MD 220 mL/hr [...] evaluated the patient during CRRT. Indication for BAR ATTENDANT: ESRD Dialysis access: LIJ Trialysis catheter My [...] this interval not displayed. Vonnie Cody MD director maternal child Division of Nephology Consult 1: After 4 [...] Brock, 51 y.o. male (: 1970) Room: [place] [address] [address] ( ) LOS: 5 Adelia Garvin Jr. is a 51 y.o. male with PMHx CHF (EF 50% in 2017), atrial fibrillation not on OAC, HTN/HLD, CAD s/p PCI, ESRD on PD, hyperparathyroidism presenting with weakness, N/V, diarrhea and chest pain. He is scheduled for [facility] on 06/06. Diabetes service consulted for T1DM [...] >> 0.8 2000 >> 5.8 ICR1:6.5 ISF1:25 [id number] TIA 4 Recommendations: - Lantus 33 units [...] ## Discharge Planning - Follow-up with home journalism internship -- Kellee Magallanes MD Endocrinology, Metabolism, & Lipid Research Contact Info: New Consults: [phone]) General Endocrine (Non-Diabetes): [phone] (Check 'Treatment Team' assignment for Diabetes 1 vs 2 vs 3) Diabetes 1: Diabetes Fellow: [phone] Diabetes 2: Dora Delarosa, HEEL EMERY BUFFER: [phone] Diabetes 3: See Treatment Team Provider (or [...] discussion with the patient. Bryce Langley MD, [facility] Barrel Levelerdirector maternal child Division of Endocrinology, Metabolism & Lipid Research [...] Jr., 51 y.o. male (: 1970) Room: [place] [id number] ( ) LOS: 4 Adelia Garvin Jr. [...] >> 0.8 2000 >> 5.8 ICR1:6.5 ISF1:25 [id number] TIA 4 Recommendations: - Lantus 33 units [...] ## Discharge Planning - Follow-up with home journalism internship -- Kellee Magallanes MD Endocrinology, Metabolism, & Lipid Research Contact Info: New Consults: [phone]) General Endocrine (Non-Diabetes): [phone] (Check 'Treatment Team' assignment for Diabetes 1 vs 2 vs 3) Diabetes 1: Diabetes Fellow: [phone] Diabetes 2: Dora Delarosa, HEEL EMERY BUFFER: [phone] Diabetes 3: See Treatment Team Provider (or [...] evaluated the patient during CRRT. Indication for BAR ATTENDANT: ESRD Dialysis access: LIJ Trialysis catheter My [...] -- 4.7* 7.2* 6.6* Vonnie Cody MD director maternal child Division of Nephology Consult 1: After 4 PM on , after 12 PM on Monday, and all day Monday, please contact on-call renal fellow at with questions. * Plan of Care - Joyce Begum, BAR ATTENDANT - 06/08/2022 3:33 AM CDT Patient on mechanical ventilation. Wean as tolerated. * Plan of Care - Low Cardoso MD - 06/07/2022 4:37 PM CDT Nephrology update note Patient not seen, off the floor for cardiac catheterization Patient reportedly had cardiopulmonary decompensation requiring intubation. Additionally had Impella placed and undergoing ECMO evaluation Trialysis catheter placed while in cardiac laboratory worker Given need for aggressive volume removal, will start CVVHDF Low Cardoso MD Nephrology Fellow Consult 2 Service Contact via [employer] Message After 4pm on , after 12pm [...] given. Additionally hypoxic on blood gas. Assisted DIRECTOR PRISON team in getting levo and epi gtt started, titrated up to 0.1mcg/kg/min each. Impella placed by interventional cardiology team. CTS at bedside for ECMO evaluation. Cj Yang CA-3, Anesthesiology [facility] Cosigned by Cody Mendosa MD at 06/08/2022 2:17 PM CDT Associated attestation - Cody Mendosa MD - 06/08/2022 2:17 PM CDT Anesthesia STAT was called while patient in laboratory worker for complex PCI. Upon my arrival, he [...] Jr., 51 y.o. male (: 1970) Room: [facility]/NO* ( ) LOS: 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, complicated by ESRD on PD, CAD s/p PCI, CHF - HbA1c 7.4% - Uses Omnipod and Dexcom G6 at home, not currently on this- doesn't have the supplies - - On significantly higher basal rates on pump at night due to peritoneal dialysis -home settings: Basal rate 0330 >>1.7 0800 >> 0.8 2000 >> 5.8 ICR1:6.5 ISF1:25 [id number] TIA 4 Recommendations: - Lantus 33 units [...] ## Discharge Planning - Follow-up with home journalism internship -- Kellee Magallanes MD Endocrinology, Metabolism, & Lipid Research Contact Info: New Consults: [phone]) General Endocrine (Non-Diabetes): [phone] (Check 'Treatment Team' assignment for Diabetes 1 vs 2 vs 3) Diabetes 1: Diabetes Fellow: [phone] Diabetes 2: Dora Delarosa, HEEL EMERY BUFFER: [phone] Diabetes 3: See Treatment Team Provider (or [...] monitor VS, improve oxygenation status, go to laboratory worker for LHC today,possibly do another scan for [...] Thank you, SIL Avilez, RN, CCDS Email: [email or web address] * Consults, Subsequent - Low Cardoso [...] 450 I.V.(mL/kg) 443.1(3.1) 443.1(3.1) 147.7(1) 147.7(1) Other 99950 26685 77460 IV Piggyback 105 105 Shift Total(mL/kg) 05363(84.2) 82279.1(86.1) 81754.1(170.3) 597.7(4.2) 597.7(4.2) OUTPUT Urine(mL/kg/hr) 0(0) 6(0) 6(0) 0 0 Other 56897 16746 65913 Stool 0 0 Shift Total(mL/kg) 49279(87.7) 21212(98.3) 68214(186) 0(0) 0(0) NET -498 -1729.9 -2227.9 597.7 [...] Nephrology Fellow Consult 2 Service Contact via [employer] Message After 4pm on , after 12pm [...] Jr., 51 y.o. male (: 1970) Room: [place] [address] [address] ( ) LOS: 2 Adelia Garvin Jr. 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, complicated by ESRD on PD, CAD s/p PCI, CHF - HbA1c 7.4% - Uses Omnipod and Dexcom G6 at home, not currently on this- doesn't have the supplies - - On significantly higher basal rates on pump at night due to peritoneal dialysis -home settings: Basal rate 0330 >>1.7 0800 >> 0.8 2000 >> 5.8 ICR1:6.5 ISF1:25 [id number] TIA 4 Recommendations: - Lantus 33 units [...] ## Discharge Planning - Follow-up with home journalism internship -- Kellee Magallanes MD Endocrinology, Metabolism, & Lipid Research Contact Info: New Consults: [phone]) General Endocrine (Non-Diabetes): [phone] (Check 'Treatment Team' assignment for Diabetes 1 vs 2 vs 3) Diabetes 1: Diabetes Fellow: [phone] Diabetes 2: Dora Delarosa, HEEL EMERY BUFFER: [phone] Diabetes 3: See Treatment Team Provider (or [...] Shift: Monitor VS and keep SBP 140-160, construction or leak gang laborer for [facility] Summary: * Plan of Care [...] we should call his brother Ronny Garvin [phone] or [phone] (pt not sure which is the correct [...] utility assistance and LIHEAP assistance programs for [facility]. Pt denied other needs stating he has good support from his brother and son. SÁNCHEZ Virk, CAP BLOCKER * Plan of Care - Manisha Wong [...] POCT GLUCOSE DEVICE Routine 06/29/2022 11:51 AM OBIEE OBIA SOLUTION ARCHITECT POCT GLUCOSE DEVICE Routine 06/29/2022 7 :43 AM OBIEE OBIA SOLUTION ARCHITECT POCT GLUCOSE DEVICE Routine 06/28/2022 8 :08 PM OBIEE OBIA SOLUTION ARCHITECT COVID-19 CORONAVIRUS RNA Routine 06/28/2022 3:46 PM OBIEE OBIA SOLUTION ARCHITECT POCT GLUCOSE DEVICE Routine 06/28/2022 3 :33 PM OBIEE OBIA SOLUTION ARCHITECT POCT GLUCOSE DEVICE Routine 06/28/2022 11:42 AM OBIEE OBIA SOLUTION ARCHITECT POCT GLUCOSE DEVICE Routine 06/28/2022 9:53 AM OBIEE OBIA SOLUTION ARCHITECT POCT GLUCOSE DEVICE Routine 06/28/2022 8 :37 AM OBIEE OBIA SOLUTION ARCHITECT POCT GLUCOSE DEVICE Routine 06/28/2022 8 :20 AM OBIEE OBIA SOLUTION ARCHITECT POCT GLUCOSE DEVICE Routine 06/28/2022 8 :02 AM OBIEE OBIA SOLUTION ARCHITECT POCT GLUCOSE DEVICE Routine 06/28/2022 7 :41 AM OBIEE OBIA SOLUTION ARCHITECT POCT GLUCOSE DEVICE Routine 06/27/2022 7 :51 PM OBIEE OBIA SOLUTION ARCHITECT POCT GLUCOSE DEVICE Routine 06/27/2022 4 :54 PM OBIEE OBIA SOLUTION ARCHITECT POCT GLUCOSE DEVICE Routine 06/27/2022 11:37 AM OBIEE OBIA SOLUTION ARCHITECT POCT GLUCOSE DEVICE Routine 06/27/2022 7 :54 AM OBIEE OBIA SOLUTION ARCHITECT EGFR Routine 06/27/2022 3:51 AM OBIEE OBIA SOLUTION ARCHITECT CBC WITHOUT DIFFERENTIAL Routine 06/27/2022 3:51 AM OBIEE OBIA SOLUTION ARCHITECT BASIC METABOLIC PANEL Routine 06/27/2022 3:51 AM OBIEE OBIA SOLUTION ARCHITECT POCT GLUCOSE DEVICE Routine 06/27/2022 1 :54 AM OBIEE OBIA SOLUTION ARCHITECT POCT GLUCOSE DEVICE Routine 06/26/2022 9 :14 PM OBIEE OBIA SOLUTION ARCHITECT POCT GLUCOSE DEVICE Routine 06/26/2022 5 :53 PM OBIEE OBIA SOLUTION ARCHITECT POCT GLUCOSE DEVICE Routine 06/26/2022 1 :16 PM OBIEE OBIA SOLUTION ARCHITECT POCT GLUCOSE DEVICE Routine 06/26/2022 11:09 AM OBIEE OBIA SOLUTION ARCHITECT POCT GLUCOSE DEVICE Routine 06/26/2022 9 :07 AM OBIEE OBIA SOLUTION ARCHITECT POCT GLUCOSE DEVICE Routine 06/26/2022 7 :25 AM OBIEE OBIA SOLUTION ARCHITECT EGFR Routine 06/26/2022 3:23 AM OBIEE OBIA SOLUTION ARCHITECT CBC WITHOUT DIFFERENTIAL Routine 06/26/2022 3:23 AM [employer] SOLUTION ARCHITECT BASIC METABOLIC PANEL Routine 06/26/2022 3:23 AM [employer]BIEE [employer] SOLUTION ARCHITECT POCT GLUCOSE DEVICE Routine 06/26/2022 1 :32 [...] VIDEO IP Routine 06/21/2022 2:06 PM CDT LICENSING SPECIALIST EVALUATE AND TREAT VIDEOFLUOROSCOPIC SWALLOW STUDY [...] DEVICE Routine 06/17/2022 7 :40 PM CDT OK INSJ NON-TUNNELED CENTRAL VENOUS CATH AGE 3 [...] METABOLIC PANEL STAT 06/07/2022 10:58 PM CDT OK ARTL CATHJ/CANNULJ MNTR/TRANSFUSION SPX PRQ Routine 06/07/2022 [...] EGFR STAT 06/05/2022 3:22 PM CDT POCT [id number],WB - ISTAT Routine 06/05/2022 3:22 PM CDT [...] * (ABNORMAL) POCT glucose (06/29/2022 11:51 AM [employer]BIEE [employer]IA SOLUTION ARCHITECT) Glucose, POC 302(H) 70 - 199 mg/dL [facility] Blood 06/29/2022 11:5 1 AM [employer]EE [employer] SOLUTION ARCHITECT 06/29/2022 11:51 AM [employer]EE [employer] SOLUTION ARCHITECT Frank Bowers MD LAB POCT ORDERABLES - DEVICE F inal Result Performing Organization Address City/[facility]/ZIP Co de Phone Number [facility] [place] [address] * (ABNORMAL) POCT glucose (06/29/2022 7:43 AM [employer]EE [employer]IA SOLUTION ARCHITECT) Glucose, POC 262(H) 70 - 199 mg/dL [facility] Glucose comment 1 Glu2: RN/MD Notified [facility] Blood 06/29/2022 7:43 AM [employer]EE [employer]IA SOLUTION ARCHITECT 06/29/2022 7:43 AM [employer]EE [employer]IA SOLUTION ARCHITECT Frank Bowers MD LAB POCT ORDERABLES - DEVICE F inal Result Performing Organization Address [facility] Co de Phone Number [facility] Department [place] [address] * (ABNORMAL) POCT glucose (06/28/2022 8:08 PM OBIEE OBIA SOLUTION ARCHITECT) Glucose, POC 260(H) 70 - 199 mg/dL [facility] Blood 06/28/2022 8:08 PM [employer]EE [employer] SOLUTION ARCHITECT 06/28/2022 8:08 PM [employer]EE [employer] SOLUTION ARCHITECT Frank Bowers MD LAB POCT ORDERABLES - DEVICE F inal Result Performing Organization Address City/[facility]/ZIP Co de Phone Number [facility] Department [place] [address] * COVID-19 Coronavirus RNA Nasopharyngeal (06/28/2022 3:46 PM OBIEE OBIA SOLUTION ARCHITECT) COVID-19 RNA Negative Negative [facility] Nasopharyngeal 06/28/2022 3: 46 PM [employer] SOLUTION ARCHITECT 06/28/2022 4:22 PM [employer]EE [employer] SOLUTION ARCHITECT Narrative ALESSANDRA AVILA - 06/28/2022 5:03 PM [employer]EE [employer] SOLUTION ARCHITECT Is the patient experiencing any symptoms consistent with COVID (eg. Fever, cough, shortness of breath)?->No What is the reason for testing?->Placement in post-acute care setting (Rapid) ??Interpretive data: Synonyms for this test include: PCR and NAAT . ??This test is performed using the [employer] Xpert Xpress plus assay. This is a [...] . ??This test is performed using the [employer] Xpert Xpress plus assay. This is a [...] MICROBIOLOGY - GENERAL ORD ERABLES Final Result [facility] Department [place] [address] * (ABNORMAL) POCT glucose (06/28/2022 3:33 PM OBIEE OBIA SOLUTION ARCHITECT) Glucose, POC 299(H) 70 - 199 mg/dL [facility] Blood 06/28/2022 3:33 PM [employer]EE [employer]IA SOLUTION ARCHITECT 06/28/2022 3:33 PM OBIEE [employer]IA SOLUTION ARCHITECT us Frank Bowers MD LAB POCT ORDERABLES - DEVICE F inal Result Performing Organization Address [facility] Phone Number [facility] [place] [address] * (ABNORMAL) POCT glucose (06/28/2022 11:42 AM [employer]EE [employer]IA SOLUTION ARCHITECT) Glucose, POC 281(H) 70 - 199 mg/dL [facility] Glucose comment 1 Glu2: RN/MD Notified [facility] Blood 06/28/2022 11:4 2 AM [employer]EE [employer] SOLUTION ARCHITECT 06/28/2022 11:42 AM O[employer]EE [employer] SOLUTION ARCHITECT us Frank Bowers MD LAB POCT ORDERABLES - DEVICE F inal Result Performing Organization Address [facility] Phone Number [facility] Department [place] [address] * POCT glucose (06/28/2022 9:53 AM OBIEE OBIA SOLUTION ARCHITECT) Glucose, POC 181 70 - 199 mg/dL [facility] Blood 06/28/2022 9:53 AM O[employer]EE [employer]IA SOLUTION ARCHITECT 06/28/2022 9:53 AM [employer]EE [employer]IA SOLUTION ARCHITECT us Frank Bowers MD LAB POCT ORDERABLES - DEVICE F inal Result Performing Organization Address [facility] de Phone Number [facility] [place] [address] * POCT glucose (06/28/2022 8:37 AM OBIEE OBIA SOLUTION ARCHITECT) Glucose, POC 121 70 - 199 mg/dL [facility] Blood 06/28/2022 8:37 AM [employer] SOLUTION ARCHITECT 06/28/2022 8:37 AM O[employer]EE [employer]IA SOLUTION ARCHITECT us Frank Bowers MD LAB POCT ORDERABLES - DEVICE F inal Result Performing Organization Address [facility] [place] [address] * POCT glucose (06/28/2022 8:20 AM OBIEE OBIA SOLUTION ARCHITECT) Glucose, POC 95 70 - 199 mg/dL [facility] Blood 06/28/2022 8:20 AM [employer]EE [employer]IA SOLUTION ARCHITECT 06/28/2022 8:20 AM O[employer]EE [employer]IA SOLUTION ARCHITECT us Frank Bowers MD LAB POCT ORDERABLES - DEVICE F inal Result Performing Organization Address [facility] [place] [address] * POCT glucose (06/28/2022 8:02 AM OBIEE [employer]IA SOLUTION ARCHITECT) Glucose, POC 75 70 - 199 mg/dL [facility] Blood 06/28/2022 8:02 AM [employer]IA SOLUTION ARCHITECT 06/28/2022 8:02 AM O[employer]EE [employer]IA SOLUTION ARCHITECT us Frank Bowers MD LAB POCT ORDERABLES - DEVICE F inal Result Performing Organization Address [facility] de Phone Number [facility] [place] [address] * (ABNORMAL) POCT glucose (06/28/2022 7:41 AM O[employer]EE [employer]IA SOLUTION ARCHITECT) Glucose, POC 68(L) 70 - 199 mg/dL [facility] Glucose comment 1 Glu2: RN/MD Notified [facility] Blood 06/28/2022 7:41 AM [employer] SOLUTION ARCHITECT 06/28/2022 7:41 AM O[employer]EE [employer]IA SOLUTION ARCHITECT us Frank Bowers MD LAB POCT ORDERABLES - DEVICE F inal Result Performing Organization Address [facility] Co de Phone Number [facility] [place] [address] * POCT glucose (06/27/2022 7:51 PM OBIEE OBIA SOLUTION ARCHITECT) Glucose, POC 199 70 - 199 mg/dL [facility] Blood 06/27/2022 7:51 PM O[employer]EE OBIA SOLUTION ARCHITECT 06/27/2022 7:51 PM OBIEE OBIA SOLUTION ARCHITECT Carey East MD LAB POCT ORDERABLES - [place] [address] * POCT glucose (06/27/2022 4:54 PM OBIEE OBIA SOLUTION ARCHITECT) Glucose, POC 143 70 - 199 mg/dL [facility] Blood 06/27/2022 4:54 PM O[employer]EE OBIA SOLUTION ARCHITECT 06/27/2022 4:54 PM OBIEE OBIA SOLUTION ARCHITECT Carey East MD LAB POCT ORDERABLES - DEVICE Final Result Performing Organization Address City/[facility] [place] [address] * (ABNORMAL) POCT glucose (06/27/2022 11:37 AM OBIEE OBIA SOLUTION ARCHITECT) Glucose, POC 228(H) 70 - 199 mg/dL [facility] Glucose comment 1 Glu2: RN/MD Notified [facility] Blood 06/27/2022 11:3 7 AM [employer]IA SOLUTION ARCHITECT 06/27/2022 11:37 AM O[employer]EE [employer]IA SOLUTION ARCHITECT Carey East MD LAB POCT ORDERABLES - DEVICE Final Result Performing Organization Address City/[facility]/[place] [address] * (ABNORMAL) POCT glucose (06/27/2022 7:54 AM OBIEE OBIA SOLUTION ARCHITECT) Glucose, POC 350(H) 70 - 199 mg/dL [facility] Blood 06/27/2022 7:54 AM O[employer]EE [employer]IA SOLUTION ARCHITECT 06/27/2022 7:54 AM OBIEE OBIA SOLUTION ARCHITECT Carey East MD LAB POCT ORDERABLES - DEVICE Final Result [facility] Department [place] [address] * (ABNORMAL) eGFR (06/27/2022 3:51 AM OBIEE OBIA SOLUTION ARCHITECT) [facility] eGFR 6(L) 90 - 130 mL/min/1. 73 m2 [facility] Comment: Interpretive Data Reference Interval Normal [...] last reviewed 2021. Blood 06/27/2022 3:51 AM OBIEE OBIA SOLUTION ARCHITECT 06/27/2022 4:28 AM OBIEE OBIA SOLUTION ARCHITECT Carey East MD LAB BLOOD ORDERABLES Final Result Performing Organization Address City/[facility] Co de Phone Number [facility] Department [place] [address] * (ABNORMAL) CBC without differential (06/27/2022 3:51 AM OBIEE OBIA SOLUTION ARCHITECT) Pathologist [facility] WBC 3.8 3.8 - 9.9 K/cumm [facility] Hgb 7.5(L) 13.0 - 17.5 g/dL [facility] Hct 22.8(L) 38.9 - 50.3 % [facility] Plt 294 150 - 400 K/cumm [facility] MPV 10.0 9.1 - 12.3 fL [facility] RBC 2.49(L) 4.30 - 5.80 M/cumm [facility] MCV 91.6 81.3 - 96.4 fL [facility] MCH 30.1 27.1 - 33.3 pg [facility] MCHC 32.9 32.3 - 35.7 g/dL [facility] RDW CV 17.5(H) 11.1 - 14.9 % [facility] RDW SD 57.9(H) 35.7 - 48.1 fL [facility] NRBC abs 0.00 0.00 - 0.01 K/cumm [facility] Blood 06/27/2022 3:51 AM OBIEE OBIA SOLUTION ARCHITECT 06/27/2022 4:28 AM OBIEE OBIA SOLUTION ARCHITECT us Carey East MD LAB BLOOD ORDERABLES Final Result Performing Organization Address City/[facility]/ZIP Co de Phone Number [facility] [place] [address] * (ABNORMAL) Basic metabolic panel (06/27/2022 3:51 AM OBIEE OBIA SOLUTION ARCHITECT) Pathologist [facility] Sodium 132(L) 135 - 145 mmol/L [facility] Potassium, pl 3.1(L) 3.3 - 4.9 mmol/L [facility] Chloride 89(L) 97 - 110 mmol/L [facility] CO2 26 22 - 32 mmol/L [facility] Anion gap 17(H) 2 - 15 mmol/L [facility] BUN 46(H) 8 - 25 mg/dL [facility] Creatinine 10.21(H) 0.80 - 1.30 mg/dL [facility] Glucose 274(H) 70 - 199 mg/dL [facility] Comment: Interpretive Data Fasting glucose >/= [...] 2017. Calcium 8.4(L) 8.5 - 10.3 mg/dL [facility] Blood 06/27/2022 3:51 AM OBIEE OBIA SOLUTION ARCHITECT 06/27/2022 4:28 AM OBIEE OBIA SOLUTION ARCHITECT Carey East MD LAB BLOOD ORDERABLES Final Result Performing Organization Address [facility] Co de Phone Number [facility] Department [place] [address] * (ABNORMAL) POCT glucose (06/27/2022 1:54 AM OBIEE OBIA SOLUTION ARCHITECT) [facility] Signature Glucose, POC 276(H) 70 - 199 mg/dL [facility] Blood 06/27/2022 1:54 AM OBIEE OBIA SOLUTION ARCHITECT 06/27/2022 1:54 AM OBIEE OBIA SOLUTION ARCHITECT Carey East MD LAB POCT ORDERABLES - DEVICE Final Result Performing Organization Address [facility] Co de Phone Number [facility] [place] [address] * POCT glucose (06/26/2022 9:14 PM OBIEE OBIA SOLUTION ARCHITECT) Glucose, POC 184 70 - 199 mg/dL [facility] Blood 06/26/2022 9:14 PM OBIEE OBIA SOLUTION ARCHITECT 06/26/2022 9:14 PM OBIEE OBIA SOLUTION ARCHITECT Carey East MD LAB POCT ORDERABLES - [place] [address] * POCT glucose (06/26/2022 5:53 PM OBIEE OBIA SOLUTION ARCHITECT) [facility] Signature Glucose, POC 98 70 - 199 mg/dL [facility] Blood 06/26/2022 5:53 PM OBIEE OBIA SOLUTION ARCHITECT 06/26/2022 5:53 PM OBIEE OBIA SOLUTION ARCHITECT us Carey East MD LAB POCT ORDERABLES - DEVICE Final Result Performing Organization Address City/[facility]/[place] [address] * (ABNORMAL) POCT glucose (06/26/2022 1:16 PM OBIEE OBIA SOLUTION ARCHITECT) [facility] Signature Glucose, POC 202(H) 70 - 199 mg/dL [facility] Blood 06/26/2022 1:16 PM OBIEE OBIA SOLUTION ARCHITECT 06/26/2022 1:16 PM OBIEE OBIA SOLUTION ARCHITECT us Carey East MD LAB POCT ORDERABLES - DEVICE Final Result Performing Organization Address City/[facility]/[place] [address] * (ABNORMAL) POCT glucose (06/26/2022 11:09 AM OBIEE OBIA SOLUTION ARCHITECT) Glucose, POC 320(H) 70 - 199 mg/dL [facility] Glucose comment 1 Glu2: RN/MD Notified [facility] Blood 06/26/2022 11:0 9 AM OBIEE OBIA SOLUTION ARCHITECT 06/26/2022 11:09 AM OBIEE OBIA SOLUTION ARCHITECT Carey East MD LAB POCT ORDERABLES - DEVICE Final Result Performing Organization Address [facility] de Phone Number [facility] Department [place] [address] * (ABNORMAL) POCT glucose (06/26/2022 9:07 AM OBIEE OBIA SOLUTION ARCHITECT) [facility] Glucose, POC 400(H) 70 - 199 mg/dL [facility] Blood 06/26/2022 9:07 AM OBIEE OBIA SOLUTION ARCHITECT 06/26/2022 9:07 AM OBIEE OBIA SOLUTION ARCHITECT Carey East MD LAB POCT ORDERABLES - DEVICE Final Result Performing Organization Address [facility] de Phone Number [facility] [place] [address] * (ABNORMAL) POCT glucose (06/26/2022 7:25 AM OBIEE OBIA SOLUTION ARCHITECT) [facility] Glucose, POC 393(H) 70 - 199 mg/dL [facility] Glucose comment 1 Glu2: RN/ Notified [facility] Blood 06/26/2022 7:25 AM OBIEE OBIA SOLUTION ARCHITECT 06/26/2022 7:25 AM OBIEE OBIA SOLUTION ARCHITECT Carey East MD LAB POCT ORDERABLES - DEVICE Final Result Performing Organization Address [facility] de Phone Number [facility] [place] [address] * (ABNORMAL) eGFR (06/26/2022 3:23 AM OBIEE OBIA SOLUTION ARCHITECT) [facility] eGFR 5(L) 90 - 130 mL/min/1. 73 m2 [facility] Comment: Interpretive Data Reference Interval Normal [...] last reviewed 2021. Blood 06/26/2022 3:23 AM OBIEE OBIA SOLUTION ARCHITECT 06/26/2022 5:00 AM OBIEE OBIA SOLUTION ARCHITECT Carey East MD LAB BLOOD ORDERABLES Final Result [facility] Department [place] [address] * (ABNORMAL) CBC without differential (06/26/2022 3:23 AM OBIEE OBIA SOLUTION ARCHITECT) [facility] WBC 4.1 3.8 - 9.9 K/cumm [facility] Hgb 7.6(L) 13.0 - 17.5 g/dL [facility] Hct 23.3(L) 38.9 - 50.3 % [facility] Plt 250 150 - 400 K/cumm [facility] MPV 10.7 9.1 - 12.3 fL [facility] RBC 2.49(L) 4.30 - 5.80 M/cumm [facility] MCV 93.6 81.3 - 96.4 fL [facility] MCH 30.5 27.1 - 33.3 pg [facility] MCHC 32.6 32.3 - 35.7 g/dL [facility] RDW CV 17.8(H) 11.1 - 14.9 % [facility] RDW SD 59.3(H) 35.7 - 48.1 fL [facility] NRBC abs 0.00 0.00 - 0.01 K/cumm [facility] Blood 06/26/2022 3:23 AM OBIEE OBIA SOLUTION ARCHITECT 06/26/2022 5:00 AM OBIEE OBIA SOLUTION ARCHITECT us Carey East MD LAB BLOOD ORDERABLES Final Result [facility] Department [place] [address] * (ABNORMAL) Basic metabolic panel (06/26/2022 3:23 AM OBIEE OBIA SOLUTION ARCHITECT) Sodium 134(L) 135 - 145 mmol/L [facility] Potassium, pl 3.6 3.3 - 4.9 mmol/L [facility] Chloride 91(L) 97 - 110 mmol/L [facility] CO2 26 22 - 32 mmol/L [facility] Anion gap 17(H) 2 - 15 mmol/L [facility] BUN 47(H) 8 - 25 mg/dL [facility] Creatinine 10.28(H) 0.80 - 1.30 mg/dL [facility] Glucose 335(H) 70 - 199 mg/dL [facility] Comment: Interpretive Data Fasting glucose >/= [...] 2017. Calcium 8.5 8.5 - 10.3 mg/dL [facility] Blood 06/26/2022 3:23 AM OBIEE OBIA SOLUTION ARCHITECT 06/26/2022 5:00 AM OBIEE OBIA SOLUTION ARCHITECT Carey East MD LAB BLOOD ORDERABLES Final Result Performing Organization Address City/[facility] Co de Phone Number [facility] [place] [address] * (ABNORMAL) POCT glucose (06/26/2022 1:32 AM CDT) Glucose, POC 334(H) 70 - 199 mg/dL [facility] Blood 06/26/2022 1:32 AM CDT 06/26/2022 1:32 AM CDT Carey East MD LAB POCT ORDERABLES - DEVICE Final Result Performing Organization Address [facility] Co de Phone Number [facility] Department [place] [address] * (ABNORMAL) POCT glucose (06/25/2022 9:02 PM CDT) Glucose, POC 257(H) 70 - 199 mg/dL [facility] Blood 06/25/2022 9:02 PM CDT 06/25/2022 9:02 PM CDT Carey East MD LAB POCT ORDERABLES - DEVICE Final Result Performing Organization Address City/[facility] Co de Phone Number [facility] Department [place] [address] * (ABNORMAL) POCT glucose (06/25/2022 6:30 PM CDT) Glucose, POC 223(H) 70 - 199 mg/dL [facility] Blood 06/25/2022 6:30 PM CDT 06/25/2022 6:30 PM CDT Carey East MD LAB POCT ORDERABLES - DEVICE Final Result Performing Organization Address City/[facility] Co de Phone Number [facility] [place] [address] * (ABNORMAL) POCT glucose (06/25/2022 4:21 PM CDT) Glucose, POC 241(H) 70 - 199 mg/dL [facility] Glucose comment 1 Glu2: RN/ Notified [facility] Blood 06/25/2022 4:21 PM CDT 06/25/2022 4:21 PM CDT Carey East MD LAB POCT ORDERABLES - DEVICE Final Result Performing Organization Address [facility] [place] [address] * (ABNORMAL) POCT glucose (06/25/2022 11:42 AM CDT) Glucose, POC 296(H) 70 - 199 mg/dL [facility] Glucose comment 1 Glu2: RN/MD Notified [facility] Blood 06/25/2022 11:4 2 AM CDT 06/25/2022 11:42 AM CDT Carey East MD LAB POCT ORDERABLES - DEVICE Final Result Performing Organization Address City/[facility] Co de Phone Number [facility] [place] [address] * (ABNORMAL) POCT glucose (06/25/2022 7:42 AM CDT) Glucose, POC 363(H) 70 - 199 mg/dL [facility] Glucose comment 1 Glu2: RN/MD Notified [facility] Blood 06/25/2022 7:42 AM CDT 06/25/2022 7:42 AM CDT us Carey aEst MD LAB POCT ORDERABLES - DEVICE Final Result [facility] Department [place] [address] * (ABNORMAL) eGFR (06/25/2022 4:36 AM CDT) eGFR 6(L) 90 - 130 mL/min/1. 73 m2 [facility] Comment: Interpretive Data Reference Interval Normal [...] BLOOD ORDERABLES Final Result Performing Organization Address [facility] de Phone Number [facility] [place] [address] * (ABNORMAL) Phosphorus (06/25/2022 4:36 AM CDT) Phosphorus, pl 7.9(H) 2.3 - 4.5 mg/dL [facility] Comment:Reviewed Blood 06/25/2022 4:36 AM CDT 06/25/2022 5:15 AM CDT Carey East MD LAB BLOOD ORDERABLES Final Result Performing Organization Address [facility] de Phone Number [facility] [place] [address] * (ABNORMAL) Basic metabolic panel (06/25/2022 4:36 AM CDT) Pathologist [facility] Sodium 135 135 - 145 mmol/L [facility] Potassium, pl 3.9 3.3 - 4.9 mmol/L [facility] Chloride 93(L) 97 - 110 mmol/L [facility] CO2 28 22 - 32 mmol/L [facility] Anion gap 14 2 - 15 mmol/L [facility] BUN 44(H) 8 - 25 mg/dL [facility] Creatinine 9.57(H) 0.80 - 1.30 mg/dL [facility] Glucose 281(H) 70 - 199 mg/dL [facility] Comment: Interpretive Data Fasting glucose >/= [...] 2017. Calcium 8.6 8.5 - 10.3 mg/dL [facility] Blood 06/25/2022 4:36 AM CDT 06/25/2022 5:15 AM CDT Carey East MD LAB BLOOD ORDERABLES Final Result Performing Organization Address City/[facility]/ZIP Co de Phone Number [facility] [place] [address] * (ABNORMAL) POCT glucose (06/25/2022 1:41 AM CDT) Glucose, POC 265(H) 70 - 199 mg/dL [facility] Blood 06/25/2022 1:41 AM CDT 06/25/2022 1:41 AM CDT Result [facility] Carey East MD LAB POCT ORDERABLES - DEVICE Final Result Performing Organization Address [facility] Co de Phone Number [facility] [place] [address] * (ABNORMAL) POCT glucose (06/24/2022 8:01 PM CDT) Glucose, POC 246(H) 70 - 199 mg/dL [facility] Blood 06/24/2022 8:01 PM CDT 06/24/2022 8:01 PM CDT Result [facility] Carey East MD LAB POCT ORDERABLES - DEVICE Final Result Performing Organization Address City/[facility] Co de Phone Number [facility] [place] [address] * POCT glucose (06/24/2022 4:55 PM CDT) Glucose, POC 185 70 - 199 mg/dL [facility] Blood 06/24/2022 4:55 PM CDT 06/24/2022 4:55 PM CDT Carey East MD LAB POCT ORDERABLES - DEVICE Final Result Performing Organization Address City/[facility] Co de Phone Number [facility] [place] [address] * (ABNORMAL) POCT glucose (06/24/2022 12:53 PM CDT) Glucose, POC 275(H) 70 - 199 mg/dL [facility] Glucose comment 1 Glu2: RN/ Notified [facility] Blood 06/24/2022 12:5 3 PM CDT 06/24/2022 12:53 PM CDT Carey East MD LAB POCT ORDERABLES - DEVICE Final Result Performing Organization Address [facility] Co de Phone Number [facility] [place] [address] * (ABNORMAL) POCT glucose (06/24/2022 11:31 AM CDT) Glucose, POC 346(H) 70 - 199 mg/dL [facility] Glucose comment 1 Glu2: RN/MD Notified [facility] Blood 06/24/2022 11:3 1 AM CDT 06/24/2022 11:31 AM CDT Carey East MD LAB POCT ORDERABLES - DEVICE Final Result Performing Organization Address City/[facility] Co de Phone Number [facility] [place] [address] * (ABNORMAL) POCT glucose (06/24/2022 9:54 AM CDT) Pathologist [facility] Glucose, POC 411(H) 70 - 199 mg/dL [facility] Blood 06/24/2022 9:54 AM CDT 06/24/2022 9:54 AM CDT Carey East MD LAB POCT ORDERABLES - DEVICE Final Result Performing Organization Address [facility] [place] [address] * (ABNORMAL) POCT glucose (06/24/2022 7:33 AM CDT) [facility] Glucose, POC 415(H) 70 - 199 mg/dL [facility] Glucose comment 1 Glu2: RN/MD Notified [facility] Blood 06/24/2022 7:33 AM CDT 06/24/2022 7:33 AM CDT Carey East MD LAB POCT ORDERABLES - DEVICE Final Result Performing Organization Address [facility] [place] [address] * (ABNORMAL) eGFR (06/24/2022 4:10 AM CDT) [facility] eGFR 7(L) 90 - 130 mL/min/1. 73 m2 [facility] Comment: Interpretive Data Reference Interval Normal [...] East MD LAB BLOOD ORDERABLES Final Result [facility] Department [place] [address] * (ABNORMAL) CBC without differential (06/24/2022 4:10 AM CDT) WBC 4.3 3.8 - 9.9 K/cumm [facility] Hgb 7.9(L) 13.0 - 17.5 g/dL [facility] Hct 24.0(L) 38.9 - 50.3 % [facility] Plt 206 150 - 400 K/cumm [facility] MPV 10.3 9.1 - 12.3 fL [facility] RBC 2.61(L) 4.30 - 5.80 M/cumm [facility] MCV 92.0 81.3 - 96.4 fL [facility] MCH 30.3 27.1 - 33.3 pg [facility] MCHC 32.9 32.3 - 35.7 g/dL [facility] RDW CV 18.5(H) 11.1 - 14.9 % [facility] RDW SD 58.3(H) 35.7 - 48.1 fL [facility] NRBC abs 0.00 0.00 - 0.01 K/cumm [facility] Blood 06/24/2022 4:10 AM CDT 06/24/2022 4:34 AM CDT Carey East MD LAB BLOOD ORDERABLES Final Result [facility] Department [place] [address] * (ABNORMAL) Basic metabolic panel (06/24/2022 4:10 AM CDT) Sodium 134(L) 135 - 145 mmol/L [facility] Potassium, pl 3.9 3.3 - 4.9 mmol/L [facility] Chloride 94(L) 97 - 110 mmol/L [facility] CO2 25 22 - 32 mmol/L [facility] Anion gap 15 2 - 15 mmol/L [facility] BUN 46(H) 8 - 25 mg/dL [facility] Creatinine 8.83(H) 0.80 - 1.30 mg/dL [facility] Glucose 390(H) 70 - 199 mg/dL [facility] Comment: Interpretive Data Fasting glucose >/= [...] 2017. Calcium 8.5 8.5 - 10.3 mg/dL [facility] Blood 06/24/2022 4:10 AM CDT 06/24/2022 4:34 AM CDT Carey East MD LAB BLOOD ORDERABLES Final Result Performing Organization Address [facility] Co de Phone Number [facility] [place] [address] * (ABNORMAL) POCT glucose (06/24/2022 1:44 AM CDT) Glucose, POC 389(H) 70 - 199 mg/dL [facility] Blood 06/24/2022 1:44 AM CDT 06/24/2022 1:44 AM CDT Carey East MD LAB POCT ORDERABLES - DEVICE Final Result Performing Organization Address [facility] Co de Phone Number [facility] [place] [address] * (ABNORMAL) POCT glucose (06/24/2022 1:26 AM CDT) Glucose, POC 428(H) 70 - 199 mg/dL [facility] Blood 06/24/2022 1:26 AM CDT 06/24/2022 1:26 AM CDT Carey East MD LAB POCT ORDERABLES - DEVICE Final Result Performing Organization Address [facility] Co de Phone Number [facility] Department [place] [address] * (ABNORMAL) POCT glucose (06/23/2022 8:49 PM CDT) Glucose, POC 306(H) 70 - 199 mg/dL [facility] Blood 06/23/2022 8:49 PM CDT 06/23/2022 8:49 PM CDT Carey East MD LAB POCT ORDERABLES - DEVICE Final Result Performing Organization Address City/[facility] Co de Phone Number [facility] [place] [address] * (ABNORMAL) POCT glucose (06/23/2022 7:45 PM CDT) Glucose, POC 284(H) 70 - 199 mg/dL [facility] Blood 06/23/2022 7:45 PM CDT 06/23/2022 7:45 PM CDT Carey East MD LAB POCT ORDERABLES - DEVICE Final Result Performing Organization Address [facility] [place] [address] * POCT glucose (06/23/2022 5:57 PM CDT) Glucose, POC 180 70 - 199 mg/dL [facility] Blood 06/23/2022 5:57 PM CDT 06/23/2022 5:57 PM CDT Carey East MD LAB POCT ORDERABLES - DEVICE Final Result Performing Organization Address [facility] Co de Phone Number [facility] [place] [address] * POCT glucose (06/23/2022 4:48 PM CDT) Glucose, POC 152 70 - 199 mg/dL [facility] Blood 06/23/2022 4:48 PM CDT 06/23/2022 4:48 PM CDT Carey East MD LAB POCT ORDERABLES - DEVICE Final Result Performing Organization Address [facility] Co de Phone Number [facility] [place] [address] * POCT glucose (06/23/2022 3:43 PM CDT) [facility] Glucose, POC 174 70 - 199 mg/dL [facility] Blood 06/23/2022 3:43 PM CDT 06/23/2022 3:43 PM CDT Carey East MD LAB POCT ORDERABLES - DEVICE Final Result Performing Organization Address City/[facility] Co de Phone Number [facility] Department [place] [address] * (ABNORMAL) POCT glucose (06/23/2022 3:01 PM CDT) [facility] Glucose, POC 66(L) 70 - 199 mg/dL [facility] Blood 06/23/2022 3:01 PM CDT 06/23/2022 3:01 PM CDT Carey East MD LAB POCT ORDERABLES - DEVICE Final Result Performing Organization Address [facility] Co de Phone Number [facility] Department [place] [address] * (ABNORMAL) eGFR (06/23/2022 2:35 PM CDT) [facility] eGFR 7(L) 90 - 130 mL/min/1. 73 m2 [facility] Comment: Interpretive Data Reference Interval Normal [...] East MD LAB BLOOD ORDERABLES Final Result [facility] Department [place] [address] * (ABNORMAL) Basic metabolic panel (06/23/2022 2:35 PM CDT) [facility] Sodium 137 135 - 145 mmol/L [facility] Potassium, pl 3.6 3.3 - 4.9 mmol/L [facility] Chloride 96(L) 97 - 110 mmol/L [facility] CO2 25 22 - 32 mmol/L [facility] Anion gap 16(H) 2 - 15 mmol/L [facility] BUN 45(H) 8 - 25 mg/dL [facility] Creatinine 8.33(H) 0.80 - 1.30 mg/dL [facility] Glucose 55(L) 70 - 199 mg/dL [facility] Comment: Interpretive Data Fasting glucose >/= [...] 2017. Calcium 8.3(L) 8.5 - 10.3 mg/dL [facility] Blood 06/23/2022 2:35 PM CDT 06/23/2022 3:04 PM CDT us Carey East MD LAB BLOOD ORDERABLES Final Result [facility] Department [place] [address] * Differential, auto (06/23/2022 2:34 PM CDT) Neutrophil abs 2.7 1.7 - 6.5 K/cumm [facility] Imm gran abs 0.0 0.0 - 0.1 K/cumm [facility] Lymphocyte abs 1.3 0.8 - 3.3 K/cumm [facility] Monocyte abs 0.8 0.2 - 0.8 K/cumm [facility] Eosinophil abs 0.5 0.0 - 0.5 K/cumm [facility] Basophil abs 0.0 0.0 - 0.1 K/cumm [facility] Neutrophil pct 50.3 % [facility] Comment: Interpretive Data Percent cell count reference ranges are not reported, since discordance with absolute values may lead to misinterpretation of CBC data. Current Interpretive Data was last revised on 2017. Imm gran pct 0.6 % [facility] Comment: Interpretive Data Percent cell count reference ranges are not reported, since discordance with absolute values may lead to misinterpretation of CBC data. Current Interpretive Data was last revised on 2017. Lymphocyte pct 23.7 % [facility] Comment: Interpretive Data Percent cell count reference ranges are not reported, since discordance with absolute values may lead to misinterpretation of CBC data. Current Interpretive Data was last revised on 2017. Monocyte pct 15.5 % [facility] Comment: Interpretive Data Percent cell count reference ranges are not reported, since discordance with absolute values may lead to misinterpretation of CBC data. Current Interpretive Data was last revised on 2017. Eosinophil pct 9.2 % [facility] Comment: Interpretive Data Percent cell count reference ranges are not reported, since discordance with absolute values may lead to misinterpretation of CBC data. Current Interpretive Data was last revised on 2017. Basophil pct 0.7 % [facility] Comment: Interpretive Data Percent cell count reference ranges are not reported, since discordance with absolute values may lead to misinterpretation of CBC data. Current Interpretive Data was last revised on 2017. Blood 06/23/2022 2:34 PM CDT 06/23/2022 3:14 PM CDT Carey East MD LAB BLOOD ORDERABLES Final Result [facility] Department [place] [address] * (ABNORMAL) CBC with auto differential (06/23/2022 2:34 PM CDT) WBC 5.4 3.8 - 9.9 K/cumm [facility] Hgb 8.2(L) 13.0 - 17.5 g/dL [facility] Comment:Consistent with ita ent history. Hct 25.2(L) 38.9 - 50.3 % [facility] Plt 215 150 - 400 K/cumm [facility] MPV 10.2 9.1 - 12.3 fL [facility] RBC 2.71(L) 4.30 - 5.80 M/cumm [facility] MCV 93.0 81.3 - 96.4 fL [facility] MCH 30.3 27.1 - 33.3 pg [facility] MCHC 32.5 32.3 - 35.7 g/dL [facility] RDW CV 18.7(H) 11.1 - 14.9 % [facility] RDW SD 57.2(H) 35.7 - 48.1 fL [facility] NRBC abs 0.00 0.00 - 0.01 K/cumm [facility] Blood 06/23/2022 2:34 PM CDT 06/23/2022 3:14 PM CDT Carey East MD LAB BLOOD ORDERABLES Final Result Performing Organization Address [facility] de Phone Number [facility] [place] [address] * (ABNORMAL) Troponin I high-sensitivity 2-hour (06/23/2022 2:34 PM CDT) Trop I hs 3,636(C) <=35 ng/L [facility] Comment: Previous critical value noted within 48 hours ago. Interpretive Data For further hscTnI resources including the diagnostic algorithm and an aid in interpretation, copy and paste this link: https://bjhlab.testcatalog.org/show/hsTrop-[email or web address] Current Interpretive Data last revised 2020. Trop I hs delta See Comment ng/L [facility] Comment:Inappropriate collec tion time to report a delta. Trop I hs pct delta See Comment % [facility] Comment:Inappropriate collec tion time to report a delta. Trop I hs interp See Comment [facility] Comment:Inappropriate collec tion time to report a delta. Blood 06/23/2022 2:34 PM CDT 06/23/2022 3:14 PM CDT Carey East MD LAB BLOOD ORDERABLES Final Result Performing Organization Address [facility] Co de Phone Number [facility] [address] [facility] [place] [address] * (ABNORMAL) POCT glucose (06/23/2022 2:25 PM CDT) Glucose, POC 69(L) 70 - 199 mg/dL [facility] Blood 06/23/2022 2:25 PM CDT 06/23/2022 2:25 PM CDT Carey East MD LAB POCT ORDERABLES - DEVICE Final Result Performing Organization Address [facility] de Phone Number [facility] [place] [address] * Critical result callback Cardio chemistry (06/23/2022 2:01 PM CDT) Date Notified [id number] [facility] Time Notified 1454 [facility] Test name Trop I hs base [facility] Called/Read Back Fartun [facility] Credentials RN [facility] Called By karen [facility] Blood 06/23/2022 2:01 PM CDT 06/23/2022 2:16 PM CDT Carey East MD LAB BLOOD ORDERABLES Final Result Performing Organization Address [facility] de Phone Number [facility] [place] [address] * (ABNORMAL) eGFR (06/23/2022 2:01 PM CDT) eGFR 7(L) 90 - 130 mL/min/1. 73 m2 [facility] Comment: Interpretive Data Reference Interval Normal [...] BLOOD ORDERABLES Final Result Performing Organization Address City/[facility] Co de Phone Number [facility] Department [place] [address] * (ABNORMAL) Troponin I high-sensitivity series (baseline, 2hr, 4hr, 6hr) (06/23/2022 2:01 PM CDT) Trop I hs 3,653(C) <=35 ng/L [facility] Comment: Interpretive Data For further hscTnI resources including the diagnostic algorithm and an aid in interpretation, copy and paste this link: https://bjhlab.testcatalog.org/show/[email or web address] Current Interpretive Data last revised 2020. Blood 06/23/2022 2:01 PM CDT 06/23/2022 2:16 PM CDT Carey East MD LAB BLOOD ORDERABLES Final Result Performing Organization Address City/[facility]/ZIP Co de Phone Number [facility] Department [place] [address] * (ABNORMAL) Phosphorus (06/23/2022 2:01 PM CDT) Phosphorus, pl 5.2(H) 2.3 - 4.5 mg/dL [facility] Blood 06/23/2022 2:01 PM CDT 06/23/2022 2:16 PM CDT Carey East MD LAB BLOOD ORDERABLES Final Result Performing Organization Address [facility] Co de Phone Number [facility] [place] [address] * (ABNORMAL) Magnesium (06/23/2022 2:01 PM CDT) [facility] Magnesium 2.8(H) 1.4 - 2.5 mg/dL [facility] Blood 06/23/2022 2:01 PM CDT 06/23/2022 2:16 PM CDT Carey East MD LAB BLOOD ORDERABLES Final Result Performing Organization Address [facility] de Phone Number [facility] [place] [address] * (ABNORMAL) CBC without differential (06/23/2022 2:01 PM CDT) [facility] WBC 5.9 3.8 - 9.9 K/cumm [facility] Hgb 4.6(C) 13.0 - 17.5 g/dL [facility] Comment:Critical result call ed to and read back by MOUSTAPHA RAMSAY(RN) on 06 23 2022 at 1428 to Erin Kidd. Hct 14.2(L) 38.9 - 50.3 % [facility] Plt 253 150 - 400 K/cumm [facility] MPV 10.1 9.1 - 12.3 fL [facility] RBC 1.51(L) 4.30 - 5.80 M/cumm [facility] MCV 94.0 81.3 - 96.4 fL [facility] MCH 30.5 27.1 - 33.3 pg [facility] MCHC 32.4 32.3 - 35.7 g/dL [facility] RDW CV 18.4(H) 11.1 - 14.9 % [facility] RDW SD 58.0(H) 35.7 - 48.1 fL [facility] NRBC abs 0.00 0.00 - 0.01 K/cumm [facility] Blood 06/23/2022 2:01 PM CDT 06/23/2022 2:17 PM CDT Narrative [facility] - 06/23/2022 2:29 PM CDT While on heparin infusion us Carey East MD LAB BLOOD ORDERABLES Final Result [facility] Department [place] [address] * (ABNORMAL) Basic metabolic panel (06/23/2022 2:01 PM CDT) Pathologist [facility] Sodium 136 135 - 145 mmol/L [facility] Potassium, pl 3.4 3.3 - 4.9 mmol/L [facility] Chloride 96(L) 97 - 110 mmol/L [facility] CO2 25 22 - 32 mmol/L [facility] Anion gap 15 2 - 15 mmol/L [facility] BUN 45(H) 8 - 25 mg/dL [facility] Creatinine 8.21(H) 0.80 - 1.30 mg/dL [facility] Glucose 60(L) 70 - 199 mg/dL [facility] Comment: Interpretive Data Fasting glucose >/= [...] 2017. Calcium 8.3(L) 8.5 - 10.3 mg/dL [facility] Blood 06/23/2022 2:01 PM CDT 06/23/2022 2:16 PM CDT Carey East MD LAB BLOOD ORDERABLES Final Result Performing Organization Address City/[facility] Co de Phone Number [facility] [place] [address] * POCT glucose (06/23/2022 1:42 PM CDT) Pathologist [facility] Glucose, POC 79 70 - 199 mg/dL [facility] Blood 06/23/2022 1:42 PM CDT 06/23/2022 1:42 PM CDT Carey East MD LAB POCT ORDERABLES - DEVICE Final Result Performing Organization Address [facility] Co de Phone Number [facility] [place] [address] * ECG 12 lead (06/23/2022 1:30 PM CDT) [facility] Ventricular Rate EKG/Min 100 BPM [facility] Atrial Rate 100 BPM [facility] OK-Interval (MSEC) 182 ms [facility] QRS-Interval (MSEC) 106 ms [facility] QT-Interval (MSEC) 380 ms [facility] QTc 490 ms [facility] R [place] -47 degrees [facility] T [place] 105 degrees [facility] Diagnosis Sinus rhythm with Premature supraventricular [...] SAL M.D ([id number]) on 06/23/2022 4:28:23 PM [facility] 06/23/2022 1:30 PM CDT 06/23/2022 4:28 PM CDT us Carey East MD ECG ORDERABLES Ann Marie l Result Performing Organization Address [facility]/ZIP Co de Phone Number [facility] * POCT glucose (06/23/2022 1:20 PM CDT) Glucose, POC 88 70 - 199 mg/dL [facility] Blood 06/23/2022 1:20 PM CDT 06/23/2022 1:20 PM CDT us Carey East MD LAB POCT ORDERABLES - DEVICE Final Result Performing Organization Address [facility] Co de Phone Number [facility] Department [place] [address] * POCT glucose (06/23/2022 11:48 AM CDT) Glucose, POC 163 70 - 199 mg/dL [facility] Blood 06/23/2022 11:4 8 AM CDT 06/23/2022 11:48 AM CDT Carey East MD LAB POCT ORDERABLES - DEVICE Final Result Performing Organization Address [facility] Phone Number [facility] Department [place] [address] * (ABNORMAL) POCT glucose (06/23/2022 7:28 AM CDT) Glucose, POC 320(H) 70 - 199 mg/dL [facility] Blood 06/23/2022 7:28 AM CDT 06/23/2022 7:28 AM CDT Catherine Adams MD LAB POCT ORDERABLES - DEVIC E Final Result [facility] Department [place] [address] * (ABNORMAL) Magnesium (06/23/2022 4:21 AM CDT) [facility] Magnesium 2.9(H) 1.4 - 2.5 mg/dL [facility] Blood 06/23/2022 4:21 AM CDT 06/23/2022 5:58 AM CDT us Luiz Lewis DO LAB BLOOD ORDERABLES Final Res ult Performing Organization Address City/[facility] Co de Phone Number [facility] Department [place] [address] * (ABNORMAL) CBC without differential (06/23/2022 4:21 AM CDT) [facility] WBC 4.4 3.8 - 9.9 K/cumm [facility] Hgb 8.1(L) 13.0 - 17.5 g/dL [facility] Hct 25.8(L) 38.9 - 50.3 % [facility] Plt 206 150 - 400 K/cumm [facility] MPV 10.4 9.1 - 12.3 fL [facility] RBC 2.76(L) 4.30 - 5.80 M/cumm [facility] MCV 93.5 81.3 - 96.4 fL [facility] MCH 29.3 27.1 - 33.3 pg [facility] MCHC 31.4(L) 32.3 - 35.7 g/dL [facility] RDW CV 18.8(H) 11.1 - 14.9 % [facility] RDW SD 58.8(H) 35.7 - 48.1 fL [facility] NRBC abs 0.00 0.00 - 0.01 K/cumm [facility] Blood 06/23/2022 4:21 AM CDT 06/23/2022 5:58 AM CDT Narrative [facility] - 06/23/2022 6:08 AM CDT While on heparin infusion us Luiz Lewis DO LAB BLOOD ORDERABLES Final Res ult Performing Organization Address [facility] Co de Phone Number [facility] [place] [address] * (ABNORMAL) POCT glucose (06/23/2022 1:38 AM CDT) Glucose, POC 244(H) 70 - 199 mg/dL [facility] Blood 06/23/2022 1:38 AM CDT 06/23/2022 1:38 AM CDT us Catherine Adams MD LAB POCT ORDERABLES - DEVIC E Final Result Performing Organization Address [facility] Co de Phone Number [facility] Department [place] [address] * (ABNORMAL) Phosphorus (06/22/2022 9:28 PM CDT) Phosphorus, pl 5.8(H) 2.3 - 4.5 mg/dL [facility] Blood 06/22/2022 9:28 PM CDT 06/22/2022 10:27 PM CDT us Catherine Adams MD LAB BLOOD ORDERABLES Final Result Performing Organization Address City/[facility] Co de Phone Number [facility] [place] [address] * POCT glucose (06/22/2022 9:14 PM CDT) Glucose, POC 176 70 - 199 mg/dL [facility] Blood 06/22/2022 9:14 PM CDT 06/22/2022 9:14 PM CDT us Catherine Adams MD LAB POCT ORDERABLES - DEVIC E Final Result [facility] Department [place] [address] * POCT glucose (06/22/2022 5:37 PM CDT) Pathologist [facility] Glucose, POC 88 70 - 199 mg/dL [facility] Blood 06/22/2022 5:37 PM CDT 06/22/2022 5:37 PM CDT Catherine Adams MD LAB POCT ORDERABLES - DEVIC E Final Result Performing Organization Address [facility] de Phone Number [facility] Department [place] [address] * (ABNORMAL) eGFR (06/22/2022 3:21 PM CDT) Pathologist [facility] eGFR 8(L) 90 - 130 mL/min/1. 73 m2 [facility] Comment: Interpretive Data Reference Interval Normal [...] NP LAB BLOOD ORDERABLES Final Re sult [facility] Department [place] [address] * Differential, auto (06/22/2022 3:21 PM CDT) Neutrophil abs 2.5 1.7 - 6.5 K/cumm [facility] Imm gran abs 0.0 0.0 - 0.1 K/cumm [facility] Lymphocyte abs 1.2 0.8 - 3.3 K/cumm [facility] Monocyte abs 0.8 0.2 - 0.8 K/cumm [facility] Eosinophil abs 0.5 0.0 - 0.5 K/cumm [facility] Basophil abs 0.0 0.0 - 0.1 K/cumm [facility] Neutrophil pct 51.2 % [facility] Comment: Interpretive Data Percent cell count reference ranges are not reported, since discordance with absolute values may lead to misinterpretation of CBC data. Current Interpretive Data was last revised on 2017. Imm gran pct 0.4 % [facility] Comment: Interpretive Data Percent cell count reference ranges are not reported, since discordance with absolute values may lead to misinterpretation of CBC data. Current Interpretive Data was last revised on 2017. Lymphocyte pct 23.3 % [facility] Comment: Interpretive Data Percent cell count reference ranges are not reported, since discordance with absolute values may lead to misinterpretation of CBC data. Current Interpretive Data was last revised on 2017. Monocyte pct 15.4 % [facility] Comment: Interpretive Data Percent cell count reference ranges are not reported, since discordance with absolute values may lead to misinterpretation of CBC data. Current Interpretive Data was last revised on 2017. Eosinophil pct 9.3 % [facility] Comment: Interpretive Data Percent cell count reference ranges are not reported, since discordance with absolute values may lead to misinterpretation of CBC data. Current Interpretive Data was last revised on 2017. Basophil pct 0.4 % [facility] Comment: Interpretive Data Percent cell count reference ranges are not reported, since discordance with absolute values may lead to misinterpretation of CBC data. Current Interpretive Data was last revised on 2017. Blood 06/22/2022 3:21 PM CDT 06/22/2022 3:52 PM CDT us Catherine Adams MD LAB BLOOD ORDERABLES Final Result [facility] Department [place] [address] * (ABNORMAL) CBC with auto differential (06/22/2022 3:21 PM CDT) WBC 4.9 3.8 - 9.9 K/cumm [facility] Hgb 7.8(L) 13.0 - 17.5 g/dL [facility] Hct 24.1(L) 38.9 - 50.3 % [facility] Plt 183 150 - 400 K/cumm [facility] MPV 10.2 9.1 - 12.3 fL [facility] RBC 2.54(L) 4.30 - 5.80 M/cumm [facility] MCV 94.9 81.3 - 96.4 fL [facility] MCH 30.7 27.1 - 33.3 pg [facility] MCHC 32.4 32.3 - 35.7 g/dL [facility] RDW CV 18.5(H) 11.1 - 14.9 % [facility] RDW SD 58.2(H) 35.7 - 48.1 fL [facility] NRBC abs 0.00 0.00 - 0.01 K/cumm [facility] Blood 06/22/2022 3:21 PM CDT 06/22/2022 3:52 PM CDT us Catherine Adams MD LAB BLOOD ORDERABLES Final Result Performing Organization Address City/[facility]/ZIP Co de Phone Number [facility] [place] [address] * (ABNORMAL) Magnesium (06/22/2022 3:21 PM CDT) Pathologist [facility] Magnesium 2.9(H) 1.4 - 2.5 mg/dL [facility] Blood 06/22/2022 3:21 PM CDT 06/22/2022 3:52 PM CDT us Marcelina Lo NP LAB BLOOD ORDERABLES Final Re sult Performing Organization Address [facility] Co de Phone Number [facility] Department [place] [address] * (ABNORMAL) Comprehensive metabolic panel (06/22/2022 3:21 PM CDT) Pathologist [facility] Sodium 138 135 - 145 mmol/L [facility] Potassium, pl 3.7 3.3 - 4.9 mmol/L [facility] Chloride 99 97 - 110 mmol/L [facility] CO2 27 22 - 32 mmol/L [facility] Anion gap 12 2 - 15 mmol/L [facility] BUN 42(H) 8 - 25 mg/dL [facility] Creatinine 7.25(H) 0.80 - 1.30 mg/dL [facility] Glucose 103 70 - 199 mg/dL [facility] Comment: Interpretive Data Fasting glucose >/= [...] 2017. Calcium 8.6 8.5 - 10.3 mg/dL [facility] Bilirubin, total 0.4 0.1 - 1.2 mg/dL [facility] Protein, pl 6.1(L) 6.5 - 8.5 g/dL [facility] Albumin 2.9(L) 3.5 - 5.0 g/dL [facility] Alk phos 112 40 - 130 Units/L [facility] ALT 31 7 - 55 Units/L [facility] AST 41 10 - 50 Units/L [facility] Blood 06/22/2022 3:21 PM CDT 06/22/2022 3:52 PM CDT Marcelina Lo HEEL EMERY BUFFER LAB BLOOD ORDERABLES Final Re sult Performing Organization Address [facility] Co de Phone Number [facility] Department [place] [address] * POCT glucose (06/22/2022 11:38 AM CDT) Glucose, POC 162 70 - 199 mg/dL [facility] Blood 06/22/2022 11:3 8 AM CDT 06/22/2022 11:38 AM CDT Catherine Adams MD LAB POCT ORDERABLES - DEVIC E Final Result [facility] Department [place] [address] * POCT glucose (06/22/2022 10:46 AM CDT) Glucose, POC 197 70 - 199 mg/dL [facility] Blood 06/22/2022 10:4 6 AM CDT 06/22/2022 10:46 AM CDT us Catherine Adams MD LAB POCT ORDERABLES - DEVIC E Final Result Performing Organization Address City/[facility] Co de Phone Number [facility] [place] [address] * (ABNORMAL) POCT glucose (06/22/2022 9:07 AM CDT) Glucose, POC 313(H) 70 - 199 mg/dL [facility] Blood 06/22/2022 9:07 AM CDT 06/22/2022 9:07 AM CDT Catherine Adams MD LAB POCT ORDERABLES - DEVIC E Final Result Performing Organization Address [facility] Co de Phone Number [facility] [place] [address] * (ABNORMAL) POCT glucose (06/22/2022 7:40 AM CDT) Glucose, POC 364(H) 70 - 199 mg/dL [facility] Blood 06/22/2022 7:40 AM CDT 06/22/2022 7:40 AM CDT Catherine Adams MD LAB POCT ORDERABLES - DEVIC E Final Result Performing Organization Address [facility] Co de Phone Number [facility] Department [place] [address] * (ABNORMAL) POCT glucose (06/22/2022 7:38 AM CDT) Glucose, POC 318(H) 70 - 199 mg/dL [facility] Blood 06/22/2022 7:38 AM CDT 06/22/2022 7:38 AM CDT Catherine Adams MD LAB POCT ORDERABLES - DEVIC E Final Result Performing Organization Address City/[facility] Co de Phone Number [facility] Department [place] [address] * (ABNORMAL) POCT glucose (06/22/2022 5:54 AM CDT) [facility] Glucose, POC 370(H) 70 - 199 mg/dL [facility] Blood 06/22/2022 5:54 AM CDT 06/22/2022 5:54 AM CDT Catherine Adams MD LAB POCT ORDERABLES - DEVIC E Final Result Performing Organization Address [facility] Co de Phone Number [facility] Department [place] [address] * (ABNORMAL) eGFR (06/21/2022 9:55 PM CDT) [facility] eGFR 10(L) 90 - 130 mL/min/1. 73 m2 [facility] Comment: Interpretive Data Reference Interval Normal [...] 06/21/2022 10:14 PM CDT us Marcelina Lo HEEL EMERY BUFFER LAB BLOOD ORDERABLES Final Re sult [facility] Department [place] [address] * Differential, auto (06/21/2022 9:55 PM CDT) Pathologist [facility] Neutrophil abs 3.7 1.7 - 6.5 K/cumm [facility] Imm gran abs 0.0 0.0 - 0.1 K/cumm [facility] Lymphocyte abs 1.0 0.8 - 3.3 K/cumm [facility] Monocyte abs 0.8 0.2 - 0.8 K/cumm [facility] Eosinophil abs 0.3 0.0 - 0.5 K/cumm [facility] Basophil abs 0.0 0.0 - 0.1 K/cumm [facility] Neutrophil pct 63.3 % [facility] Comment: Interpretive Data Percent cell count reference ranges are not reported, since discordance with absolute values may lead to misinterpretation of CBC data. Current Interpretive Data was last revised on 2017. Imm gran pct 0.5 % [facility] Comment: Interpretive Data Percent cell count reference ranges are not reported, since discordance with absolute values may lead to misinterpretation of CBC data. Current Interpretive Data was last revised on 2017. Lymphocyte pct 16.3 % [facility] Comment: Interpretive Data Percent cell count reference ranges are not reported, since discordance with absolute values may lead to misinterpretation of CBC data. Current Interpretive Data was last revised on 2017. Monocyte pct 14.3 % [facility] Comment: Interpretive Data Percent cell count reference ranges are not reported, since discordance with absolute values may lead to misinterpretation of CBC data. Current Interpretive Data was last revised on 2017. Eosinophil pct 5.1 % [facility] Comment: Interpretive Data Percent cell count reference ranges are not reported, since discordance with absolute values may lead to misinterpretation of CBC data. Current Interpretive Data was last revised on 2017. Basophil pct 0.5 % [facility] Comment: Interpretive Data Percent cell count reference ranges are not reported, since discordance with absolute values may lead to misinterpretation of CBC data. Current Interpretive Data was last revised on 2017. Blood 06/21/2022 9:55 PM CDT 06/21/2022 10:14 PM CDT Catherine Adams MD LAB BLOOD ORDERABLES Final Result Performing Organization Address City/[facility]/ZIP Co de Phone Number [facility] Department [place] [address] * (ABNORMAL) POCT glucose (06/21/2022 9:55 PM CDT) [facility] Glucose, POC 272(H) 70 - 199 mg/dL [facility] Blood 06/21/2022 9:55 PM CDT 06/21/2022 9:55 PM CDT Catherine Adams MD LAB POCT ORDERABLES - DEVIC E Final Result Performing Organization Address City/[facility]/ZIP Co de Phone Number [facility] Department [place] [address] * (ABNORMAL) CBC with auto differential (06/21/2022 9:55 PM CDT) [facility] WBC 5.9 3.8 - 9.9 K/cumm [facility] Hgb 7.5(L) 13.0 - 17.5 g/dL [facility] Hct 23.6(L) 38.9 - 50.3 % [facility] Plt 174 150 - 400 K/cumm [facility] MPV 9.7 9.1 - 12.3 fL [facility] RBC 2.51(L) 4.30 - 5.80 M/cumm [facility] MCV 94.0 81.3 - 96.4 fL [facility] MCH 29.9 27.1 - 33.3 pg [facility] MCHC 31.8(L) 32.3 - 35.7 g/dL [facility] RDW CV 18.9(H) 11.1 - 14.9 % [facility] RDW SD 60.0(H) 35.7 - 48.1 fL [facility] NRBC abs 0.02(H) 0.00 - 0.01 K/cumm [facility] Blood 06/21/2022 9:55 PM CDT 06/21/2022 10:14 PM CDT Catherine Adams MD LAB BLOOD ORDERABLES Final Result Performing Organization Address [facility] de Phone Number [facility] Department [place] [address] * Lactate (06/21/2022 9:55 PM CDT) Lactate 0.8 0.7 - 2.0 mmol/L [facility] Blood 06/21/2022 9:55 PM CDT 06/21/2022 10:14 PM CDT Catherine Adams MD LAB BLOOD ORDERABLES Final Result Performing Organization Address [facility] de Phone Number [facility] Department [place] [address] * (ABNORMAL) Triglycerides (06/21/2022 9:55 PM CDT) Triglycerides 183(H) <=149 mg/dL [facility] Comment: Interpretive Data Ages < or [...] PM CDT 06/21/2022 10:15 PM CDT Narrative [facility] - 06/21/2022 10:45 PM CDT While on propofol infusion. us Catherine Adams MD LAB BLOOD ORDERABLES Final Result Performing Organization Address [facility] Co de Phone Number [facility] Department of Laboratories [place], [place] [id number] * (ABNORMAL) Phosphorus (06/21/2022 9:55 PM CDT) Pathologist [facility] Phosphorus, pl 4.8(H) 2.3 - 4.5 mg/dL [facility] Blood 06/21/2022 9:55 PM CDT 06/21/2022 10:15 PM CDT us Marcelina Lo HEEL EMERY BUFFER LAB BLOOD ORDERABLES Final Re sult Performing Organization Address City/[facility]/ZIP Co de Phone Number [facility] Department of Laboratories [place], [place] [id number] * (ABNORMAL) Lipase (06/21/2022 9:55 PM CDT) Lipase 227(H) 10 - 99 Units/L [facility] Blood 06/21/2022 9:55 PM CDT 06/21/2022 10:15 PM CDT Marcelina Lo HEEL EMERY BUFFER LAB BLOOD ORDERABLES Final Re sult Performing Organization Address [facility] de Phone Number [facility] Department [place] [address] * (ABNORMAL) Magnesium (06/21/2022 9:55 PM CDT) Pathologist [facility] Magnesium 2.8(H) 1.4 - 2.5 mg/dL [facility] Blood 06/21/2022 9:55 PM CDT 06/21/2022 10:14 PM CDT Marcelina Lo HEEL EMERY BUFFER LAB BLOOD ORDERABLES Final Re sult Performing Organization Address [facility] de Phone Number [facility] Department [place] [address] * (ABNORMAL) Comprehensive metabolic panel (06/21/2022 9:55 PM CDT) [facility] Sodium 136 135 - 145 mmol/L [facility] Potassium, pl 4.0 3.3 - 4.9 mmol/L [facility] Chloride 98 97 - 110 mmol/L [facility] CO2 24 22 - 32 mmol/L [facility] Anion gap 14 2 - 15 mmol/L [facility] BUN 41(H) 8 - 25 mg/dL [facility] Creatinine 6.03(H) 0.80 - 1.30 mg/dL [facility] Glucose 276(H) 70 - 199 mg/dL [facility] Comment: Interpretive Data Fasting glucose >/= [...] 2017. Calcium 8.4(L) 8.5 - 10.3 mg/dL [facility] Bilirubin, total 0.5 0.1 - 1.2 mg/dL [facility] Protein, pl 5.9(L) 6.5 - 8.5 g/dL [facility] Albumin 2.7(L) 3.5 - 5.0 g/dL [facility] Alk phos 111 40 - 130 Units/L [facility] ALT 32 7 - 55 Units/L [facility] AST 48 10 - 50 Units/L [facility] Blood 06/21/2022 9:55 PM CDT 06/21/2022 10:14 PM CDT us Marcelina Lo HEEL EMERY BUFFER LAB BLOOD ORDERABLES Final Re sult [facility] Department [place] [address] * (ABNORMAL) Differential, auto (06/21/2022 5:23 PM CDT) Neutrophil abs 4.1 1.7 - 6.5 K/cumm [facility] Imm gran abs 0.1 0.0 - 0.1 K/cumm [facility] Lymphocyte abs 1.2 0.8 - 3.3 K/cumm [facility] Monocyte abs 0.9(H) 0.2 - 0.8 K/cumm [facility] Eosinophil abs 0.3 0.0 - 0.5 K/cumm [facility] Basophil abs 0.0 0.0 - 0.1 K/cumm [facility] Neutrophil pct 62.4 % [facility] Comment: Interpretive Data Percent cell count reference ranges are not reported, since discordance with absolute values may lead to misinterpretation of CBC data. Current Interpretive Data was last revised on 2017. Imm gran pct 0.8 % [facility] Comment: Interpretive Data Percent cell count reference ranges are not reported, since discordance with absolute values may lead to misinterpretation of CBC data. Current Interpretive Data was last revised on 2017. Lymphocyte pct 18.5 % [facility] Comment: Interpretive Data Percent cell count reference ranges are not reported, since discordance with absolute values may lead to misinterpretation of CBC data. Current Interpretive Data was last revised on 2017. Monocyte pct 13.7 % [facility] Comment: Interpretive Data Percent cell count reference ranges are not reported, since discordance with absolute values may lead to misinterpretation of CBC data. Current Interpretive Data was last revised on 2017. Eosinophil pct 4.0 % [facility] Comment: Interpretive Data Percent cell count reference ranges are not reported, since discordance with absolute values may lead to misinterpretation of CBC data. Current Interpretive Data was last revised on 2017. Basophil pct 0.6 % [facility] Comment: Interpretive Data Percent cell count reference ranges are not reported, since discordance with absolute values may lead to misinterpretation of CBC data. Current Interpretive Data was last revised on 2017. Blood 06/21/2022 5:23 PM CDT 06/21/2022 5:45 PM CDT Catherine Adams MD LAB BLOOD ORDERABLES Final Result [facility] Department [place] [address] * (ABNORMAL) CBC with auto differential (06/21/2022 5:23 PM CDT) WBC 6.5 3.8 - 9.9 K/cumm [facility] Hgb 7.5(L) 13.0 - 17.5 g/dL [facility] Hct 23.0(L) 38.9 - 50.3 % [facility] Plt 177 150 - 400 K/cumm [facility] MPV 9.8 9.1 - 12.3 fL [facility] RBC 2.44(L) 4.30 - 5.80 M/cumm [facility] MCV 94.3 81.3 - 96.4 fL [facility] MCH 30.7 27.1 - 33.3 pg [facility] MCHC 32.6 32.3 - 35.7 g/dL [facility] RDW CV 19.0(H) 11.1 - 14.9 % [facility] RDW SD 60.9(H) 35.7 - 48.1 fL [facility] NRBC abs 0.00 0.00 - 0.01 K/cumm [facility] Blood 06/21/2022 5:23 PM CDT 06/21/2022 5:45 PM CDT Catherine Adams MD LAB BLOOD ORDERABLES Final Result Performing Organization Address City/[facility]/ZIP Co de Phone Number [facility] Department [place] [address] * POCT glucose (06/21/2022 4:08 PM CDT) Glucose, POC 138 70 - 199 mg/dL [facility] Blood 06/21/2022 4:08 PM CDT 06/21/2022 4:08 PM CDT Catherine Adams MD LAB POCT ORDERABLES - DEVIC E Final Result Performing Organization Address City/[facility]/ZIP Co de Phone Number [facility] Department [place] [address] * [place] Modified Barium Swallow W Video [...] MD IMG FLUOROSCOPY PROCEDURES Final Result * LICENSING SPECIALIST Evaluate and Treat (VFSS) (06/21/2022 2:02 PM CDT) Narrative Aleida Lambert, LILIAN - 06/21/2022 2:02 PM CDT Aleida Lambert, LICENSING SPECIALIST ? 06/21/2022 ??4:21 PM Speech-Language Pathology: Videofluoroscopic [...] reported General Information Adelia Garvin Jr. 06/21/22 LICENSING SPECIALIST Received On: 06/21/22 General Observations: presents [...] Administered: Thin liquids (via spoon & straw), Idamay thickened liquids (via spoon & straw), Purees, Honey thickened liquids via spoon, Solids. Patient took large sips requiring more than 1 swallow even when cued for small sip. Administered consistencies contain barium product. Thin Liquids: Laryngeal Penetration: Present Aspiration Present: No Penetration Aspiration Scale-Thin: 4-Material enters the airway, contacts the vocal folds and is ejected from the airway Idamay Thickened Liquids: Laryngeal Penetration: Present Aspiration Present: No Penetration Aspiration Scale-Idamay: 2-Material enters the airway, remains above the [...] treatment goals and details, if indicated. Plan LICENSING SPECIALIST Frequency of Services: 2-3x/wk LICENSING SPECIALIST Recommendation (Add'l Services): Inpatient Rehab Facility Next Visit Plan: treatment/therapy Additional Referrals: none at this time Discharge Summary Statement If this is the last swallow therapy visit, this serves as the discharge summary. us Catherine Adams MD LICENSING SPECIALIST ORDERABLES Final Resul t * POCT glucose (06/21/2022 12:00 PM CDT) Pathologist [facility] Glucose, POC 157 70 - 199 mg/dL [facility] Blood 06/21/2022 12:0 0 PM CDT 06/21/2022 12:00 PM CDT us Catherine Adams MD LAB POCT ORDERABLES - DEVIC E Final Result [facility] Department [place] [address] * (ABNORMAL) eGFR (06/21/2022 8:38 AM CDT) eGFR 12(L) 90 - 130 mL/min/1. 73 m2 [facility] Comment: Interpretive Data Reference Interval Normal [...] 06/21/2022 9:17 AM CDT us Marcelina Lo HEEL EMERY BUFFER LAB BLOOD ORDERABLES Final Re sult [facility] Department [place] [address] * Differential, auto (06/21/2022 8:38 AM CDT) Neutrophil abs 3.3 1.7 - 6.5 K/cumm [facility] Imm gran abs 0.0 0.0 - 0.1 K/cumm [facility] Lymphocyte abs 1.2 0.8 - 3.3 K/cumm [facility] Monocyte abs 0.7 0.2 - 0.8 K/cumm [facility] Eosinophil abs 0.1 0.0 - 0.5 K/cumm [facility] Basophil abs 0.1 0.0 - 0.1 K/cumm [facility] Neutrophil pct 60.8 % [facility] Comment: Interpretive Data Percent cell count reference ranges are not reported, since discordance with absolute values may lead to misinterpretation of CBC data. Current Interpretive Data was last revised on 2017. Imm gran pct 0.7 % [facility] Comment: Interpretive Data Percent cell count reference ranges are not reported, since discordance with absolute values may lead to misinterpretation of CBC data. Current Interpretive Data was last revised on 2017. Lymphocyte pct 22.0 % [facility] Comment: Interpretive Data Percent cell count reference ranges are not reported, since discordance with absolute values may lead to misinterpretation of CBC data. Current Interpretive Data was last revised on 2017. Monocyte pct 13.7 % [facility] Comment: Interpretive Data Percent cell count reference ranges are not reported, since discordance with absolute values may lead to misinterpretation of CBC data. Current Interpretive Data was last revised on 2017. Eosinophil pct 1.9 % [facility] Comment: Interpretive Data Percent cell count reference ranges are not reported, since discordance with absolute values may lead to misinterpretation of CBC data. Current Interpretive Data was last revised on 2017. Basophil pct 0.9 % [facility] Comment: Interpretive Data Percent cell count reference ranges are not reported, since discordance with absolute values may lead to misinterpretation of CBC data. Current Interpretive Data was last revised on 2017. Blood 06/21/2022 8:38 AM CDT 06/21/2022 9:10 AM CDT us Catherine Adams MD LAB BLOOD ORDERABLES Final Result [facility] Department [place] [address] * (ABNORMAL) CBC with auto differential (06/21/2022 8:38 AM CDT) WBC 5.4 3.8 - 9.9 K/cumm [facility] Hgb 9.0(L) 13.0 - 17.5 g/dL [facility] Hct 27.8(L) 38.9 - 50.3 % [facility] Plt 171 150 - 400 K/cumm [facility] MPV 9.8 9.1 - 12.3 fL [facility] RBC 3.01(L) 4.30 - 5.80 M/cumm [facility] MCV 92.4 81.3 - 96.4 fL [facility] MCH 29.9 27.1 - 33.3 pg [facility] MCHC 32.4 32.3 - 35.7 g/dL [facility] RDW CV 19.9(H) 11.1 - 14.9 % [facility] RDW SD 63.2(H) 35.7 - 48.1 fL [facility] NRBC abs 0.02(H) 0.00 - 0.01 K/cumm [facility] Blood 06/21/2022 8:38 AM CDT 06/21/2022 9:10 AM CDT us Catherine Adams MD LAB BLOOD ORDERABLES Final Result Performing Organization Address [facility] Co de Phone Number [facility] Department [place] [address] * (ABNORMAL) Magnesium (06/21/2022 8:38 AM CDT) Pathologist [facility] Magnesium 2.8(H) 1.4 - 2.5 mg/dL [facility] Blood 06/21/2022 8:38 AM CDT 06/21/2022 9:10 AM CDT us Marcelina Lo NP LAB BLOOD ORDERABLES Final Re sult [facility] [place] [address] * (ABNORMAL) Comprehensive metabolic panel (06/21/2022 8:38 AM CDT) Sodium 139 135 - 145 mmol/L [facility] Potassium, pl 4.0 3.3 - 4.9 mmol/L [facility] Chloride 101 97 - 110 mmol/L [facility] CO2 27 22 - 32 mmol/L [facility] Anion gap 11 2 - 15 mmol/L [facility] BUN 36(H) 8 - 25 mg/dL [facility] Creatinine 5.26(H) 0.80 - 1.30 mg/dL [facility] Glucose 199 70 - 199 mg/dL [facility] Comment: Interpretive Data Fasting glucose >/= [...] 2017. Calcium 8.4(L) 8.5 - 10.3 mg/dL [facility] Bilirubin, total 0.4 0.1 - 1.2 mg/dL [facility] Protein, pl 5.6(L) 6.5 - 8.5 g/dL [facility] Albumin 2.7(L) 3.5 - 5.0 g/dL [facility] Alk phos 115 40 - 130 Units/L [facility] ALT 28 7 - 55 Units/L [facility] AST 52(H) 10 - 50 Units/L [facility] Blood 06/21/2022 8:38 AM CDT 06/21/2022 9:10 AM CDT us Marcelina Lo HEEL EMERY BUFFER LAB BLOOD ORDERABLES Final Re sult [facility] Department [place] [address] * POCT glucose (06/21/2022 8:34 AM CDT) [facility] Signature Glucose, POC 199 70 - 199 mg/dL [facility] Blood 06/21/2022 8:34 AM CDT 06/21/2022 8:34 AM CDT us Catherine Adams MD LAB POCT ORDERABLES - DEVIC E Final Result Performing Organization Address [facility] Co de Phone Number [facility] [place] [address] * (ABNORMAL) POCT glucose (06/21/2022 5:30 AM CDT) Glucose, POC 270(H) 70 - 199 mg/dL [facility] Blood 06/21/2022 5:30 AM CDT 06/21/2022 5:30 AM CDT Catherine Adams MD LAB POCT ORDERABLES - DEVIC E Final Result Performing Organization Address [facility] de Phone Number [facility] [place] [address] * (ABNORMAL) POCT glucose (06/21/2022 12:22 AM CDT) Glucose, POC 231(H) 70 - 199 mg/dL [facility] Blood 06/21/2022 12:2 2 AM CDT 06/21/2022 12:22 AM CDT Catherine Adams MD LAB POCT ORDERABLES - DEVIC E Final Result Performing Organization Address [facility] Co de Phone Number [facility] [place] [address] * Differential, auto (06/21/2022 12:21 AM CDT) Neutrophil abs 4.4 1.7 - 6.5 K/cumm [facility] Imm gran abs 0.1 0.0 - 0.1 K/cumm [facility] Lymphocyte abs 1.2 0.8 - 3.3 K/cumm [facility] Monocyte abs 0.8 0.2 - 0.8 K/cumm [facility] Eosinophil abs 0.1 0.0 - 0.5 K/cumm [facility] Basophil abs 0.0 0.0 - 0.1 K/cumm [facility] Neutrophil pct 67.5 % [facility] Comment: Interpretive Data Percent cell count reference ranges are not reported, since discordance with absolute values may lead to misinterpretation of CBC data. Current Interpretive Data was last revised on 2017. Imm gran pct 0.9 % [facility] Comment: Interpretive Data Percent cell count reference ranges are not reported, since discordance with absolute values may lead to misinterpretation of CBC data. Current Interpretive Data was last revised on 2017. Lymphocyte pct 18.3 % [facility] Comment: Interpretive Data Percent cell count reference ranges are not reported, since discordance with absolute values may lead to misinterpretation of CBC data. Current Interpretive Data was last revised on 2017. Monocyte pct 11.7 % [facility] Comment: Interpretive Data Percent cell count reference ranges are not reported, since discordance with absolute values may lead to misinterpretation of CBC data. Current Interpretive Data was last revised on 2017. Eosinophil pct 1.1 % [facility] Comment: Interpretive Data Percent cell count reference ranges are not reported, since discordance with absolute values may lead to misinterpretation of CBC data. Current Interpretive Data was last revised on 2017. Basophil pct 0.5 % [facility] Comment: Interpretive Data Percent cell count reference ranges are not reported, since discordance with absolute values may lead to misinterpretation of CBC data. Current Interpretive Data was last revised on 2017. Blood 06/21/2022 12:2 1 AM CDT 06/21/2022 12:50 AM CDT us Catherine Adams MD LAB BLOOD ORDERABLES Final Result [facility] Department [place] [address] * (ABNORMAL) CBC with auto differential (06/21/2022 12:21 AM CDT) WBC 6.5 3.8 - 9.9 K/cumm [facility] Hgb 7.4(L) 13.0 - 17.5 g/dL [facility] Hct 23.6(L) 38.9 - 50.3 % [facility] Plt 179 150 - 400 K/cumm [facility] MPV 9.8 9.1 - 12.3 fL [facility] RBC 2.49(L) 4.30 - 5.80 M/cumm [facility] MCV 94.8 81.3 - 96.4 fL [facility] MCH 29.7 27.1 - 33.3 pg [facility] MCHC 31.4(L) 32.3 - 35.7 g/dL [facility] RDW CV 20.0(H) 11.1 - 14.9 % [facility] RDW SD 66.2(H) 35.7 - 48.1 fL [facility] NRBC abs 0.04(H) 0.00 - 0.01 K/cumm [facility] Blood 06/21/2022 12:2 1 AM CDT 06/21/2022 12:50 AM CDT Catherine Adams MD LAB BLOOD ORDERABLES Final Result [facility] Department [place] [address] * POCT glucose (06/20/2022 7:49 PM CDT) Glucose, POC 177 70 - 199 mg/dL [facility] Blood 06/20/2022 7:49 PM CDT 06/20/2022 7:49 PM CDT Catherine Adams MD LAB POCT ORDERABLES - DEVIC E Final Result [facility] Department [place] [address] * (ABNORMAL) eGFR (06/20/2022 7:46 PM CDT) eGFR 18(L) 90 - 130 mL/min/1. 73 m2 [facility] Comment: Interpretive Data Reference Interval Normal [...] 06/20/2022 8:15 PM CDT us Marcelina Lo HEEL EMERY BUFFER LAB BLOOD ORDERABLES Final Re sult [facility] Department [place] [address] * Lactate (06/20/2022 7:46 PM CDT) Pathologist [facility] Lactate 1.0 0.7 - 2.0 mmol/L [facility] Blood 06/20/2022 7:46 PM CDT 06/20/2022 8:14 PM CDT Catherine Adams MD LAB BLOOD ORDERABLES Final Result Performing Organization Address [facility] Co de Phone Number [facility] Department [place] [address] * (ABNORMAL) Triglycerides (06/20/2022 7:46 PM CDT) Triglycerides 181(H) <=149 mg/dL [facility] Comment: Interpretive Data Ages < or [...] PM CDT 06/20/2022 8:14 PM CDT Narrative [facility] - 06/20/2022 8:51 PM CDT While on propofol infusion. Catherine Adams MD LAB BLOOD ORDERABLES Final Result Performing Organization Address [facility] de Phone Number [facility] Department [place] [address] * Phosphorus (06/20/2022 7:46 PM CDT) Pathologist [facility] Phosphorus, pl 2.9 2.3 - 4.5 mg/dL [facility] Comment:Repeated and Verifie d Blood 06/20/2022 7:46 PM CDT 06/20/2022 8:14 PM CDT Marcelina Lo HEEL EMERY BUFFER LAB BLOOD ORDERABLES Final Re sult Performing Organization Address City/[facility] Co de Phone Number [facility] [place] [address] * (ABNORMAL) Beta-hydroxybutyrate (06/20/2022 7:46 PM CDT) [facility] Beta-Hydroxybut yrate 2.5(H) 0.0 - 0.5 mmol/L [facility] Blood 06/20/2022 7:46 PM CDT 06/20/2022 8:59 PM CDT Marcelina Lo HEEL EMERY BUFFER LAB BLOOD ORDERABLES Final Re sult Performing Organization Address [facility] Co de Phone Number [facility] [place] [address] * Lipase (06/20/2022 7:46 PM CDT) Pathologist [facility] Lipase 88 10 - 99 Units/L [facility] Blood 06/20/2022 7:46 PM CDT 06/20/2022 8:14 PM CDT Marcelina Lo HEEL EMERY BUFFER LAB BLOOD ORDERABLES Final Re sult Performing Organization Address [facility] Co de Phone Number [facility] [place] [address] * (ABNORMAL) Magnesium (06/20/2022 7:46 PM CDT) Pathologist [facility] Magnesium 2.6(H) 1.4 - 2.5 mg/dL [facility] Blood 06/20/2022 7:46 PM CDT 06/20/2022 8:15 PM CDT us Marcelina Lo HEEL EMERY BUFFER LAB BLOOD ORDERABLES Final Re sult [facility] Department [place] [address] * (ABNORMAL) Comprehensive metabolic panel (06/20/2022 7:46 PM CDT) Sodium 137 135 - 145 mmol/L [facility] Potassium, pl 4.9 3.3 - 4.9 mmol/L [facility] Chloride 102 97 - 110 mmol/L [facility] CO2 23 22 - 32 mmol/L [facility] Anion gap 12 2 - 15 mmol/L [facility] BUN 26(H) 8 - 25 mg/dL [facility] Creatinine 3.87(H) 0.80 - 1.30 mg/dL [facility] Glucose 188 70 - 199 mg/dL [facility] Comment: Interpretive Data Fasting glucose >/= [...] 2017. Calcium 8.5 8.5 - 10.3 mg/dL [facility] Bilirubin, total 0.6 0.1 - 1.2 mg/dL [facility] Protein, pl 5.7(L) 6.5 - 8.5 g/dL [facility] Albumin 2.7(L) 3.5 - 5.0 g/dL [facility] Alk phos 123 40 - 130 Units/L [facility] ALT 29 7 - 55 Units/L [facility] AST 61(H) 10 - 50 Units/L [facility] Blood 06/20/2022 7:46 PM CDT 06/20/2022 8:15 PM CDT us Marcelina Lo NP LAB BLOOD ORDERABLES Final Re sult [facility] Department [place] [address] * (ABNORMAL) Differential, auto (06/20/2022 6:18 PM CDT) Neutrophil abs 6.2 1.7 - 6.5 K/cumm [facility] Imm gran abs 0.1 0.0 - 0.1 K/cumm [facility] Lymphocyte abs 0.9 0.8 - 3.3 K/cumm [facility] Monocyte abs 1.1(H) 0.2 - 0.8 K/cumm [facility] Eosinophil abs 0.0 0.0 - 0.5 K/cumm [facility] Basophil abs 0.0 0.0 - 0.1 K/cumm [facility] Neutrophil pct 74.5 % [facility] Comment: Interpretive Data Percent cell count reference ranges are not reported, since discordance with absolute values may lead to misinterpretation of CBC data. Current Interpretive Data was last revised on 2017. Imm gran pct 0.7 % [facility] Comment: Interpretive Data Percent cell count reference ranges are not reported, since discordance with absolute values may lead to misinterpretation of CBC data. Current Interpretive Data was last revised on 2017. Lymphocyte pct 11.0 % [facility] Comment: Interpretive Data Percent cell count reference ranges are not reported, since discordance with absolute values may lead to misinterpretation of CBC data. Current Interpretive Data was last revised on 2017. Monocyte pct 12.8 % [facility] Comment: Interpretive Data Percent cell count reference ranges are not reported, since discordance with absolute values may lead to misinterpretation of CBC data. Current Interpretive Data was last revised on 2017. Eosinophil pct 0.5 % [facility] Comment: Interpretive Data Percent cell count reference ranges are not reported, since discordance with absolute values may lead to misinterpretation of CBC data. Current Interpretive Data was last revised on 2017. Basophil pct 0.5 % [facility] Comment: Interpretive Data Percent cell count reference ranges are not reported, since discordance with absolute values may lead to misinterpretation of CBC data. Current Interpretive Data was last revised on 2017. Blood 06/20/2022 6:18 PM CDT 06/20/2022 7:08 PM CDT us Tyra De La Torre MD LAB BLOOD ORDERABLES Final Resu lt [facility] Department [place] [address] * (ABNORMAL) CBC with auto differential (06/20/2022 6:18 PM CDT) WBC 8.3 3.8 - 9.9 K/cumm [facility] Hgb 7.7(L) 13.0 - 17.5 g/dL [facility] Hct 23.7(L) 38.9 - 50.3 % [facility] Plt 188 150 - 400 K/cumm [facility] MPV 9.8 9.1 - 12.3 fL [facility] RBC 2.55(L) 4.30 - 5.80 M/cumm [facility] MCV 92.9 81.3 - 96.4 fL [facility] MCH 30.2 27.1 - 33.3 pg [facility] MCHC 32.5 32.3 - 35.7 g/dL [facility] RDW CV 20.1(H) 11.1 - 14.9 % [facility] RDW SD 64.8(H) 35.7 - 48.1 fL [facility] NRBC abs 0.04(H) 0.00 - 0.01 K/cumm [facility] Blood 06/20/2022 6:18 PM CDT 06/20/2022 7:08 PM CDT us Tyra De La Torre MD LAB BLOOD ORDERABLES Final Resu lt [facility] Department [place] [address] * POCT glucose (06/20/2022 3:53 PM CDT) Pathologist [facility] Glucose, POC 124 70 - 199 mg/dL [facility] Blood 06/20/2022 3:53 PM CDT 06/20/2022 3:53 PM CDT Catherine Adams MD LAB POCT ORDERABLES - DEVIC E Final Result Performing Organization Address [facility] Co de Phone Number [facility] [place] [address] * (ABNORMAL) Differential, auto (06/20/2022 3:22 PM CDT) [facility] Neutrophil abs 4.7 1.7 - 6.5 K/cumm [facility] Imm gran abs 0.1 0.0 - 0.1 K/cumm [facility] Lymphocyte abs 1.4 0.8 - 3.3 K/cumm [facility] Monocyte abs 1.0(H) 0.2 - 0.8 K/cumm [facility] Eosinophil abs 0.0 0.0 - 0.5 K/cumm [facility] Basophil abs 0.1 0.0 - 0.1 K/cumm [facility] Neutrophil pct 64.5 % [facility] Comment: Interpretive Data Percent cell count reference ranges are not reported, since discordance with absolute values may lead to misinterpretation of CBC data. Current Interpretive Data was last revised on 2017. Imm gran pct 0.7 % [facility] Comment: Interpretive Data Percent cell count reference ranges are not reported, since discordance with absolute values may lead to misinterpretation of CBC data. Current Interpretive Data was last revised on 2017. Lymphocyte pct 19.4 % [facility] Comment: Interpretive Data Percent cell count reference ranges are not reported, since discordance with absolute values may lead to misinterpretation of CBC data. Current Interpretive Data was last revised on 2017. Monocyte pct 14.1 % [facility] Comment: Interpretive Data Percent cell count reference ranges are not reported, since discordance with absolute values may lead to misinterpretation of CBC data. Current Interpretive Data was last revised on 2017. Eosinophil pct 0.6 % [facility] Comment: Interpretive Data Percent cell count reference ranges are not reported, since discordance with absolute values may lead to misinterpretation of CBC data. Current Interpretive Data was last revised on 2017. Basophil pct 0.7 % [facility] Comment: Interpretive Data Percent cell count reference ranges are not reported, since discordance with absolute values may lead to misinterpretation of CBC data. Current Interpretive Data was last revised on 2017. Blood 06/20/2022 3:22 PM CDT 06/20/2022 3:55 PM CDT us Catherine Adams MD LAB BLOOD ORDERABLES Final Result [facility] Department [place] [address] * (ABNORMAL) CBC with auto differential (06/20/2022 3:22 PM CDT) WBC 7.2 3.8 - 9.9 K/cumm [facility] Hgb 8.0(L) 13.0 - 17.5 g/dL [facility] Hct 24.5(L) 38.9 - 50.3 % [facility] Plt 207 150 - 400 K/cumm [facility] MPV 9.8 9.1 - 12.3 fL [facility] RBC 2.67(L) 4.30 - 5.80 M/cumm [facility] MCV 91.8 81.3 - 96.4 fL [facility] Comment:MCV delta due to zoie arent blood transfusion. MCH 30.0 27.1 - 33.3 pg [facility] MCHC 32.7 32.3 - 35.7 g/dL [facility] RDW CV 19.9(H) 11.1 - 14.9 % [facility] RDW SD 63.6(H) 35.7 - 48.1 fL [facility] NRBC abs 0.03(H) 0.00 - 0.01 K/cumm [facility] Blood 06/20/2022 3:22 PM CDT 06/20/2022 3:55 PM CDT us Catherine Adams MD LAB BLOOD ORDERABLES Final Result [facility] Department [place] [address] * CT Chest Abdomen Pelvis WO Contrast [...] ORDERABLE S Final Result [facility] Department [place] [address] * Transfuse RBC: 1 Units (06/20/2022 12:05 PM CDT) Blood us Catherine Adams MD BLOOD TRANSFUSION ORDERABLE S Final Result * Prepare RBC: 1 Units (06/20/2022 9:35 AM CDT) Product code [id number] [facility] Unit Number [id number] 3-* [facility] Product Blood Type APOS [facility] Dispense Status RETURNED [facility] Blood 06/20/2022 9:35 AM CDT 06/20/2022 9:34 AM CDT Narrative [facility] - 06/20/2022 1:20 PM CDT Are special requirements needed? (All products are leukoreduced and CMV- safe)- >No Date required:-[id number] LRRBC # of [id number] Reasons:-Hgb <7 g/dL} us Catherine Adams MD BLOOD BANK PRODUCT ORDERABL ES Final Result [facility] Department [place] [address] * (ABNORMAL) eGFR (06/20/2022 8:24 AM CDT) Pathologist [facility] eGFR 21(L) 90 - 130 mL/min/1. 73 m2 [facility] Comment: Interpretive Data Reference Interval Normal [...] 06/20/2022 8:48 AM CDT us Marcelina Lo HEEL EMERY BUFFER LAB BLOOD ORDERABLES Final Re sult [facility] Department [place] [address] * (ABNORMAL) Differential, auto (06/20/2022 8:24 AM CDT) Neutrophil abs 5.1 1.7 - 6.5 K/cumm [facility] Imm gran abs 0.1 0.0 - 0.1 K/cumm [facility] Lymphocyte abs 1.6 0.8 - 3.3 K/cumm [facility] Monocyte abs 1.3(H) 0.2 - 0.8 K/cumm [facility] Eosinophil abs 0.1 0.0 - 0.5 K/cumm [facility] Basophil abs 0.1 0.0 - 0.1 K/cumm [facility] Neutrophil pct 62.3 % [facility] Comment: Interpretive Data Percent cell count reference ranges are not reported, since discordance with absolute values may lead to misinterpretation of CBC data. Current Interpretive Data was last revised on 2017. Imm gran pct 0.7 % [facility] Comment: Interpretive Data Percent cell count reference ranges are not reported, since discordance with absolute values may lead to misinterpretation of CBC data. Current Interpretive Data was last revised on 2017. Lymphocyte pct 19.9 % [facility] Comment: Interpretive Data Percent cell count reference ranges are not reported, since discordance with absolute values may lead to misinterpretation of CBC data. Current Interpretive Data was last revised on 2017. Monocyte pct 15.9 % [facility] Comment: Interpretive Data Percent cell count reference ranges are not reported, since discordance with absolute values may lead to misinterpretation of CBC data. Current Interpretive Data was last revised on 2017. Eosinophil pct 0.6 % [facility] Comment: Interpretive Data Percent cell count reference ranges are not reported, since discordance with absolute values may lead to misinterpretation of CBC data. Current Interpretive Data was last revised on 2017. Basophil pct 0.6 % [facility] Comment: Interpretive Data Percent cell count reference ranges are not reported, since discordance with absolute values may lead to misinterpretation of CBC data. Current Interpretive Data was last revised on 2017. Blood 06/20/2022 8:24 AM CDT 06/20/2022 8:48 AM CDT Catherine Adams MD LAB BLOOD ORDERABLES Final Result [facility] Department [place] [address] * (ABNORMAL) CBC with auto differential (06/20/2022 8:24 AM CDT) WBC 8.3 3.8 - 9.9 K/cumm [facility] Hgb 6.6(L) 13.0 - 17.5 g/dL [facility] Hct 20.7(L) 38.9 - 50.3 % [facility] Plt 271 150 - 400 K/cumm [facility] MPV 9.6 9.1 - 12.3 fL [facility] RBC 2.12(L) 4.30 - 5.80 M/cumm [facility] MCV 97.6(H) 81.3 - 96.4 fL [facility] MCH 31.1 27.1 - 33.3 pg [facility] MCHC 31.9(L) 32.3 - 35.7 g/dL [facility] RDW CV 17.4(H) 11.1 - 14.9 % [facility] [facility] RDW SD 59.6(H) 35.7 - 48.1 fL [facility] NRBC abs 0.00 0.00 - 0.01 K/cumm [facility] Blood 06/20/2022 8:24 AM CDT 06/20/2022 8:48 AM CDT Catherine Adams MD LAB BLOOD ORDERABLES Final Result Performing Organization Address City/[facility]/ZIP Co de Phone Number [facility] [place] [address] * (ABNORMAL) Magnesium (06/20/2022 8:24 AM CDT) Pathologist [facility] Magnesium 2.7(H) 1.4 - 2.5 mg/dL [facility] Blood 06/20/2022 8:24 AM CDT 06/20/2022 8:48 AM CDT us Marcelina Lo NP LAB BLOOD ORDERABLES Final Re sult Performing Organization Address [facility] Co de Phone Number [facility] [place] [address] * (ABNORMAL) Comprehensive metabolic panel (06/20/2022 8:24 AM CDT) Pathologist [facility] Sodium 140 135 - 145 mmol/L [facility] Potassium, pl 4.9 3.3 - 4.9 mmol/L [facility] Chloride 104 97 - 110 mmol/L [facility] CO2 25 22 - 32 mmol/L [facility] Anion gap 11 2 - 15 mmol/L [facility] BUN 25 8 - 25 mg/dL [facility] Creatinine 3.43(H) 0.80 - 1.30 mg/dL [facility] Glucose 144 70 - 199 mg/dL [facility] Comment: Interpretive Data Fasting glucose >/= [...] Calcium 8.4(L) 8.5 - 10.3 mg/dL [facility] Bilirubin, total 0.6 0.1 - 1.2 mg/dL [facility] Protein, pl 6.2(L) 6.5 - 8.5 g/dL [facility] Albumin 2.8(L) 3.5 - 5.0 g/dL [facility] Alk phos 143(H) 40 - 130 Units/L [facility] ALT 35 7 - 55 Units/L [facility] AST 79(H) 10 - 50 Units/L [facility] Blood 06/20/2022 8:24 AM CDT 06/20/2022 8:48 AM CDT us Marcelina Lo HEEL EMERY BUFFER LAB BLOOD ORDERABLES Final Re sult Performing Organization Address City/[facility]/ZIP Co de Phone Number [facility] Department [place] [address] * POCT glucose (06/20/2022 8:21 AM CDT) [facility] Signature Glucose, POC 152 70 - 199 mg/dL [facility] Blood 06/20/2022 8:21 AM CDT 06/20/2022 8:21 AM CDT us Catherine Adams MD LAB POCT ORDERABLES - DEVIC E Final Result Performing Organization Address City/[facility]/ZIP Co de Phone Number [facility] Department [place] [address] * Transfuse RBC (06/20/2022 6:12 AM CDT) Blood Catherine Adams MD BLOOD TRANSFUSION ORDERABLE S Final Result Performing Organization Address City/[facility] Co de Phone Number [facility] Department [place] [address] * Transfuse RBC: 1 Units (06/20/2022 6:12 AM CDT) Blood Catherine Adams MD BLOOD TRANSFUSION ORDERABLE S Final Result * POCT glucose (06/20/2022 4:57 AM CDT) Glucose, POC 174 70 - 199 mg/dL [facility] Blood 06/20/2022 4:57 AM CDT 06/20/2022 4:57 AM CDT Catherine Adams MD LAB POCT ORDERABLES - DEVIC E Final Result Performing Organization Address [facility] de Phone Number [facility] Department [place] [address] * (ABNORMAL) Hemoglobin and hematocrit (06/20/2022 12:25 AM CDT) Hgb 6.2(C) 13.0 - 17.5 g/dL [facility] Comment:Consistent with prev ious results Hct 19.8(L) 38.9 - 50.3 % [facility] Blood 06/20/2022 12:2 5 AM CDT 06/20/2022 12:37 AM CDT Result [facility] Meme Castro MD LAB BLOOD ORDERABLES Final Result Performing Organization Address [facility] Co de Phone Number [facility] [place] [address] * Type and screen (06/20/2022 12:23 AM CDT) Maribel, indirect Negative [facility] ABO Rh A Positive [facility] Blood 06/20/2022 12:2 3 AM CDT 06/20/2022 1:33 AM CDT Narrative [facility] - 06/20/2022 3:08 AM CDT Has the patient had Daratumumab or Isatuximab in the past 6 months?->Unknown Catherine Adams MD LAB BLOOD BANK TEST ORDERAB LES Final Result Performing Organization Address [facility] Co de Phone Number [facility] Department [place] [address] * Prepare RBC: 1 Units (06/20/2022 12:15 AM CDT) [facility] Product code [id number] [facility] Unit Number [id number] [facility] Product Blood Type APOS [facility] Dispense Status PRESUMED TRANSFUSED [facility] Blood 06/20/2022 12:1 5 AM CDT 06/20/2022 12:16 AM CDT Narrative [facility] - 06/21/2022 12:50 AM CDT Are special requirements needed? (All products are leukoreduced and CMV- safe)- >No Date required:-[id number] LRRBC # of [id number] Reasons:-Hgb <7 g/dL} Catherine Adams MD BLOOD BANK PRODUCT ORDERABL ES Final Result Performing Organization Address [facility] de Phone Number [facility] Department [place] [address] * (ABNORMAL) POCT glucose (06/20/2022 12:01 AM CDT) [facility] Glucose, POC 206(H) 70 - 199 mg/dL [facility] Blood 06/20/2022 12:0 1 AM CDT 06/20/2022 12:01 AM CDT Catherine Adams MD LAB POCT ORDERABLES - DEVIC E Final Result Performing Organization Address [facility] Co de Phone Number [facility] Department [place] [address] * (ABNORMAL) Hemoglobin and hematocrit (06/19/2022 11:25 PM CDT) [facility] Hgb 6.2(C) 13.0 - 17.5 g/dL [facility] Comment:Critical result call ed to and read back by WON SHELBY RN on 06 20 2022 at 0010 to Precious Restrepo. Hct 19.5(L) 38.9 - 50.3 % [facility] Blood 06/19/2022 11:2 5 PM CDT 06/19/2022 11:42 PM CDT us Meme Castro MD LAB BLOOD ORDERABLES Final Result Performing Organization Address [facility] Co de Phone Number [facility] Department [place] [address] * POCT glucose (06/19/2022 8:55 PM CDT) [facility] Glucose, POC 161 70 - 199 mg/dL [facility] Blood 06/19/2022 8:55 PM CDT 06/19/2022 8:55 PM CDT Catherine Adams MD LAB POCT ORDERABLES - DEVIC E Final Result Performing Organization Address [facility] Co de Phone Number [facility] [place] [address] * (ABNORMAL) eGFR (06/19/2022 8:54 PM CDT) [facility] eGFR 16(L) 90 - 130 mL/min/1. 73 m2 [facility] Comment: Interpretive Data Reference Interval Normal [...] 06/19/2022 9:22 PM CDT us Marcelina Lo HEEL EMERY BUFFER LAB BLOOD ORDERABLES Final Re sult [facility] Department [place] [address] * (ABNORMAL) Differential, auto (06/19/2022 8:54 PM CDT) Pathologist [facility] Neutrophil abs 5.0 1.7 - 6.5 K/cumm [facility] Imm gran abs 0.1 0.0 - 0.1 K/cumm [facility] Lymphocyte abs 2.1 0.8 - 3.3 K/cumm [facility] Monocyte abs 1.2(H) 0.2 - 0.8 K/cumm [facility] Eosinophil abs 0.1 0.0 - 0.5 K/cumm [facility] Basophil abs 0.1 0.0 - 0.1 K/cumm [facility] Neutrophil pct 59.1 % [facility] Comment: Interpretive Data Percent cell count reference ranges are not reported, since discordance with absolute values may lead to misinterpretation of CBC data. Current Interpretive Data was last revised on 2017. Imm gran pct 0.7 % [facility] Comment: Interpretive Data Percent cell count reference ranges are not reported, since discordance with absolute values may lead to misinterpretation of CBC data. Current Interpretive Data was last revised on 2017. Lymphocyte pct 24.4 % [facility] Comment: Interpretive Data Percent cell count reference ranges are not reported, since discordance with absolute values may lead to misinterpretation of CBC data. Current Interpretive Data was last revised on 2017. Monocyte pct 13.7 % [facility] Comment: Interpretive Data Percent cell count reference ranges are not reported, since discordance with absolute values may lead to misinterpretation of CBC data. Current Interpretive Data was last revised on 2017. Eosinophil pct 1.3 % [facility] Comment: Interpretive Data Percent cell count reference ranges are not reported, since discordance with absolute values may lead to misinterpretation of CBC data. Current Interpretive Data was last revised on 2017. Basophil pct 0.8 % [facility] Comment: Interpretive Data Percent cell count reference ranges are not reported, since discordance with absolute values may lead to misinterpretation of CBC data. Current Interpretive Data was last revised on 2017. Blood 06/19/2022 8:54 PM CDT 06/19/2022 9:17 PM CDT us Marcelina Lo HEEL EMERY BUFFER LAB BLOOD ORDERABLES Final Re sult [facility] Department [place] [address] * (ABNORMAL) Blood gas, arterial (06/19/2022 8:54 PM CDT) pH, Art 7.45 7.35 - 7.45 [facility] PCO2, Arterial 32(L) 35 - 45 mmHg [facility] PO2, Arterial 75(L) 83 - 108 mmHg [facility] HCO3 Art (Calculated) 23 20 - 30 mmol/L [facility] BE, art -1 mmol/L [facility] Comment: Interpretive Data No Reference Range Established Current Interpretive Data was last revised on 2017 O2 Sat Art (Measured) 95 90 - 95 % [facility] Blood 06/19/2022 8:54 PM CDT 06/19/2022 9:17 PM CDT us Marcelina Lo NP LAB BLOOD ORDERABLES Final Re sult Performing Organization Address [facility]/ZIP Co de Phone Number [facility] Department [place] [address] * aPTT (06/19/2022 8:54 PM CDT) aPTT 37 27 - 37 sec [facility] Comment: Interpretive Data Therapeutic heparin range: 60.0 - 94.0 seconds. Based on correlation with therapeutic heparin activity range of 0.3-0.7 Units/mL. Current interpretive data was last revised on 2020. Blood 06/19/2022 8:54 PM CDT 06/19/2022 9:30 PM CDT Narrative [facility] - 06/19/2022 9:38 PM CDT Draw [...] BLOOD ORDERABLES Final Result Performing Organization Address City/[facility]/ZIP Co de Phone Number [facility] Department [place] [address] * Lactate (06/19/2022 8:54 PM CDT) Lactate 1.3 0.7 - 2.0 mmol/L [facility] Blood 06/19/2022 8:54 PM CDT 06/19/2022 9:22 PM CDT Catherine Adams MD LAB BLOOD ORDERABLES Final Result Performing Organization Address City/[facility] Co de Phone Number [facility] [place] [address] * (ABNORMAL) Beta-hydroxybutyrate (06/19/2022 8:54 PM CDT) Pathologist [facility] Beta-Hydroxybut yrate 0.7(H) 0.0 - 0.5 mmol/L [facility] Blood 06/19/2022 8:54 PM CDT 06/19/2022 9:17 PM CDT Marcelina Lo HEEL EMERY BUFFER LAB BLOOD ORDERABLES Final Re sult Performing Organization Address [facility] Co de Phone Number [facility] [place] [address] * (ABNORMAL) Magnesium (06/19/2022 8:54 PM CDT) Magnesium 2.7(H) 1.4 - 2.5 mg/dL [facility] Blood 06/19/2022 8:54 PM CDT 06/19/2022 9:22 PM CDT Marcelina Lo HEEL EMERY BUFFER LAB BLOOD ORDERABLES Final Re sult Performing Organization Address City/[facility] Co de Phone Number [facility] [employer] [place], [place] [id number] * (ABNORMAL) Comprehensive metabolic panel (06/19/2022 8:54 PM CDT) Sodium 140 135 - 145 mmol/L [facility] Potassium, pl 4.8 3.3 - 4.9 mmol/L [facility] Chloride 102 97 - 110 mmol/L [facility] CO2 25 22 - 32 mmol/L [facility] Anion gap 13 2 - 15 mmol/L [facility] BUN 32(H) 8 - 25 mg/dL [facility] Creatinine 4.27(H) 0.80 - 1.30 mg/dL [facility] Glucose 148 70 - 199 mg/dL [facility] Comment: Interpretive Data Fasting glucose >/= [...] 2017. Calcium 8.3(L) 8.5 - 10.3 mg/dL [facility] Bilirubin, total 0.5 0.1 - 1.2 mg/dL [facility] Protein, pl 6.1(L) 6.5 - 8.5 g/dL [facility] Albumin 2.9(L) 3.5 - 5.0 g/dL [facility] Alk phos 150(H) 40 - 130 Units/L [facility] ALT 32 7 - 55 Units/L [facility] AST 61(H) 10 - 50 Units/L [facility] Blood 06/19/2022 8:54 PM CDT 06/19/2022 9:22 PM CDT us Marcelina Lo HEEL EMERY BUFFER LAB BLOOD ORDERABLES Final Re sult [facility] Department [place] [address] * (ABNORMAL) CBC with auto differential (06/19/2022 8:54 PM CDT) WBC 8.4 3.8 - 9.9 K/cumm [facility] Hgb 6.8(L) 13.0 - 17.5 g/dL [facility] Comment:No apparent cause fo r delta. called ashley sandoval MD Hct 20.5(L) 38.9 - 50.3 % [facility] Plt 255 150 - 400 K/cumm [facility] MPV 9.6 9.1 - 12.3 fL [facility] RBC 2.15(L) 4.30 - 5.80 M/cumm [facility] MCV 95.3 81.3 - 96.4 fL [facility] MCH 31.6 27.1 - 33.3 pg [facility] MCHC 33.2 32.3 - 35.7 g/dL [facility] RDW CV 16.5(H) 11.1 - 14.9 % [facility] RDW SD 55.8(H) 35.7 - 48.1 fL [facility] NRBC abs 0.03(H) 0.00 - 0.01 K/cumm [facility] Blood 06/19/2022 8:54 PM CDT 06/19/2022 9:17 PM CDT us Marcelina Lo HEEL EMERY BUFFER LAB BLOOD ORDERABLES Final Re sult [facility] Department [place] [address] * (ABNORMAL) POCT glucose (06/19/2022 4:59 PM CDT) [facility] Glucose, POC 205(H) 70 - 199 mg/dL [facility] Blood 06/19/2022 4:59 PM CDT 06/19/2022 4:59 PM CDT Catherine Adams MD LAB POCT ORDERABLES - DEVIC E Final Result [facility] Department [place] [address] * POCT glucose (06/19/2022 1:22 PM CDT) Glucose, POC 101 70 - 199 mg/dL [facility] Blood 06/19/2022 1:22 PM CDT 06/19/2022 1:22 PM CDT Catherine Adams MD LAB POCT ORDERABLES - DEVIC E Final Result Performing Organization Address [facility]/ZIP Co de Phone Number [facility] Department [place] [address] * ECG 12 lead (06/19/2022 1:03 PM CDT) Ventricular Rate EKG/Min 126 BPM [facility] Atrial Rate 63 BPM [facility] QRS-Interval (MSEC) 106 ms [facility] QT-Interval (MSEC) 360 ms [facility] QTc 521 ms [facility] R [place] -53 degrees [facility] T [place] 125 degrees [facility] Diagnosis Atrial fibrillation with rapid ventricular response with premature ventricular or aberrantly conducted complexes Left axis deviation Poor precordial R wave progression Anterior infarct , age undetermined ST & T wave abnormality, consider lateral ischemia Abnormal ECG When compared with ECG of 18-JUN-2022 18:40, (unconfirmed) No significant change was found Confirmed by HUDSON SAL M.D ([id number]) on 06/22/2022 10:55:43 AM [facility] 06/19/2022 1:03 PM CDT 06/22/2022 10:55 AM CDT us Conrad Weston Chi, MD ECG ORDERABLES Final Res ult Performing Organization Address [facility]/ZIP Co de Phone Number [facility] * US RUQ (06/19/2022 10:35 AM CDT) [...] 06/19/2022 10:17 AM CDT us Marcelina Lo HEEL EMERY BUFFER LAB BLOOD ORDERABLES Final Re sult [facility] Department [place] [address] * Differential, auto (06/19/2022 9:09 AM CDT) Neutrophil abs 2.8 1.7 - 6.5 K/cumm [facility] Imm gran abs 0.0 0.0 - 0.1 K/cumm [facility] Lymphocyte abs 1.2 0.8 - 3.3 K/cumm [facility] Monocyte abs 0.7 0.2 - 0.8 K/cumm [facility] Eosinophil abs 0.1 0.0 - 0.5 K/cumm [facility] Basophil abs 0.1 0.0 - 0.1 K/cumm [facility] Neutrophil pct 56.1 % [facility] Comment: Interpretive Data Percent cell count reference ranges are not reported, since discordance with absolute values may lead to misinterpretation of CBC data. Current Interpretive Data was last revised on 2017. Imm gran pct 0.8 % [facility] Comment: Interpretive Data Percent cell count reference ranges are not reported, since discordance with absolute values may lead to misinterpretation of CBC data. Current Interpretive Data was last revised on 2017. Lymphocyte pct 24.9 % [facility] Comment: Interpretive Data Percent cell count reference ranges are not reported, since discordance with absolute values may lead to misinterpretation of CBC data. Current Interpretive Data was last revised on 2017. Monocyte pct 14.2 % [facility] Comment: Interpretive Data Percent cell count reference ranges are not reported, since discordance with absolute values may lead to misinterpretation of CBC data. Current Interpretive Data was last revised on 2017. Eosinophil pct 2.8 % [facility] Comment: Interpretive Data Percent cell count reference ranges are not reported, since discordance with absolute values may lead to misinterpretation of CBC data. Current Interpretive Data was last revised on 2017. Basophil pct 1.2 % [facility] Comment: Interpretive Data Percent cell count reference ranges are not reported, since discordance with absolute values may lead to misinterpretation of CBC data. Current Interpretive Data was last revised on 2017. Blood 06/19/2022 9:09 AM CDT 06/19/2022 10:25 AM CDT Marcelina Lo HEEL EMERY BUFFER LAB BLOOD ORDERABLES Final Re sult Performing Organization Address [facility] Co de Phone Number [facility] [place] [address] * (ABNORMAL) Blood gas, arterial (06/19/2022 9:09 AM CDT) pH, Art 7.41 7.35 - 7.45 [facility] PCO2, Arterial 33(L) 35 - 45 mmHg [facility] PO2, Arterial 87 83 - 108 mmHg [facility] HCO3 Art (Calculated) 21 20 - 30 mmol/L [facility] BE, art -4 mmol/L [facility] Comment: Interpretive Data No Reference Range Established Current Interpretive Data was last revised on 2017 O2 Sat Art (Measured) 96(H) 90 - 95 % [facility] Blood 06/19/2022 9:09 AM CDT 06/19/2022 9:18 AM CDT Marcelina Lo HEEL EMERY BUFFER LAB BLOOD ORDERABLES Final Re sult Performing Organization Address [facility] [place] [address] * (ABNORMAL) Magnesium (06/19/2022 9:09 AM CDT) Pathologist [facility] Magnesium 2.9(H) 1.4 - 2.5 mg/dL [facility] Blood 06/19/2022 9:09 AM CDT 06/19/2022 10:17 AM CDT Marcelina Lo HEEL EMERY BUFFER LAB BLOOD ORDERABLES Final Re sult Performing Organization Address [facility] Co de Phone Number [facility] Department [place] [address] * (ABNORMAL) Comprehensive metabolic panel (06/19/2022 9:09 AM CDT) Sodium 137 135 - 145 mmol/L [facility] Potassium, pl 4.6 3.3 - 4.9 mmol/L [facility] Chloride 101 97 - 110 mmol/L [facility] CO2 23 22 - 32 mmol/L [facility] Anion gap 13 2 - 15 mmol/L [facility] BUN 35(H) 8 - 25 mg/dL [facility] Creatinine 5.02(H) 0.80 - 1.30 mg/dL [facility] Glucose 205(H) 70 - 199 mg/dL [facility] Comment: Interpretive Data Fasting glucose >/= [...] 2017. Calcium 8.4(L) 8.5 - 10.3 mg/dL [facility] Bilirubin, total 0.4 0.1 - 1.2 mg/dL [facility] Protein, pl 6.1(L) 6.5 - 8.5 g/dL [facility] Albumin 2.9(L) 3.5 - 5.0 g/dL [facility] Alk phos 156(H) 40 - 130 Units/L [facility] ALT 32 7 - 55 Units/L [facility] AST 54(H) 10 - 50 Units/L [facility] Blood 06/19/2022 9:09 AM CDT 06/19/2022 10:17 AM CDT us Marcelina Lo NP LAB BLOOD ORDERABLES Final Re sult [facility] Department [place] [address] * (ABNORMAL) CBC with auto differential (06/19/2022 9:09 AM CDT) WBC 4.9 3.8 - 9.9 K/cumm [facility] Hgb 9.9(L) 13.0 - 17.5 g/dL [facility] Hct 31.5(L) 38.9 - 50.3 % [facility] Plt 237 150 - 400 K/cumm [facility] MPV 9.9 9.1 - 12.3 fL [facility] RBC 3.20(L) 4.30 - 5.80 M/cumm [facility] MCV 98.4(H) 81.3 - 96.4 fL [facility] MCH 30.9 27.1 - 33.3 pg [facility] MCHC 31.4(L) 32.3 - 35.7 g/dL [facility] RDW CV 16.4(H) 11.1 - 14.9 % [facility] RDW SD 57.2(H) 35.7 - 48.1 fL [facility] NRBC abs 0.00 0.00 - 0.01 K/cumm [facility] Blood 06/19/2022 9:09 AM CDT 06/19/2022 10:25 AM CDT us Marcelina Lo HEEL EMERY BUFFER LAB BLOOD ORDERABLES Final Re sult Performing Organization Address City/[facility] Co de Phone Number [facility] Department [place] [address] * (ABNORMAL) POCT glucose (06/19/2022 9:08 AM CDT) Glucose, POC 217(H) 70 - 199 mg/dL [facility] Blood 06/19/2022 9:08 AM CDT 06/19/2022 9:08 AM CDT Catherine Adams MD LAB POCT ORDERABLES - DEVIC E Final Result [facility] Department [place] [address] * XR Chest 1 View (06/19/2022 5:51 AM CDT) Anatomical Region Laterality Modality Body, Chest N/A Computed Radiogr aphy 06/19/2022 7:34 AM CDT Impressions 06/19/2022 7:34 AM CDT Comparison made to 06/18/2022. ??Right internal jugular catheter tip overlies the superior vena cava. ??Nasogastric tube tip located below diaphragm, not included on the [id number]. ??A tracheal tube tip located within the [...] located below diaphragm, not included on the [id number]. A tracheal tube tip located within the mid trachea. There are small lung volumes a likely small bilateral pleural effusions, left greater than right with associated bibasilar atelectasis. No pneumothorax or pneumonic consolidation. Stable heart size. Electronically signed by: John Bruno M.D. us Catherine Adams MD IMG XR PROCEDURES Final Res ult * (ABNORMAL) eGFR (06/18/2022 10:50 PM CDT) [facility] eGFR 13(L) 90 - 130 mL/min/1. 73 m2 [facility] Comment: Interpretive Data Reference Interval Normal [...] 06/18/2022 11:02 PM CDT us Marcelina Lo HEEL EMERY BUFFER LAB BLOOD ORDERABLES Final Re sult Performing Organization Address [facility] Co de Phone Number [facility] Department [place] [address] * Vancomycin level random (06/18/2022 10:50 PM CDT) Vancomycin random 38.4 mcg/mL [facility] Comment: Interpretive Data No reference ranges have been established for random drug levels. Current Interpretive Data was last revised on 2020. Blood 06/18/2022 10:5 0 PM CDT 06/18/2022 10:59 PM CDT us Catherine Adams MD LAB BLOOD ORDERABLES Final Result Performing Organization Address City/[facility] Co de Phone Number [facility] Department [place] [address] * (ABNORMAL) Differential, auto (06/18/2022 10:50 PM CDT) Neutrophil abs 5.0 1.7 - 6.5 K/cumm [facility] Imm gran abs 0.1 0.0 - 0.1 K/cumm [facility] Lymphocyte abs 1.7 0.8 - 3.3 K/cumm [facility] Monocyte abs 1.3(H) 0.2 - 0.8 K/cumm [facility] Eosinophil abs 0.2 0.0 - 0.5 K/cumm [facility] Basophil abs 0.1 0.0 - 0.1 K/cumm [facility] Neutrophil pct 60.3 % [facility] Comment: Interpretive Data Percent cell count reference ranges are not reported, since discordance with absolute values may lead to misinterpretation of CBC data. Current Interpretive Data was last revised on 2017. Imm gran pct 0.7 % [facility] Comment: Interpretive Data Percent cell count reference ranges are not reported, since discordance with absolute values may lead to misinterpretation of CBC data. Current Interpretive Data was last revised on 2017. Lymphocyte pct 20.4 % [facility] Comment: Interpretive Data Percent cell count reference ranges are not reported, since discordance with absolute values may lead to misinterpretation of CBC data. Current Interpretive Data was last revised on 2017. Monocyte pct 16.0 % [facility] Comment: Interpretive Data Percent cell count reference ranges are not reported, since discordance with absolute values may lead to misinterpretation of CBC data. Current Interpretive Data was last revised on 2017. Eosinophil pct 2.0 % [facility] Comment: Interpretive Data Percent cell count reference ranges are not reported, since discordance with absolute values may lead to misinterpretation of CBC data. Current Interpretive Data was last revised on 2017. Basophil pct 0.6 % [facility] Comment: Interpretive Data Percent cell count reference ranges are not reported, since discordance with absolute values may lead to misinterpretation of CBC data. Current Interpretive Data was last revised on 2017. Blood 06/18/2022 10:5 0 PM CDT 06/18/2022 10:59 PM CDT Marcelina Lo HEEL EMERY BUFFER LAB BLOOD ORDERABLES Final Re sult Performing Organization Address [facility] de Phone Number [facility] Department [place] [address] * Lactate (06/18/2022 10:50 PM CDT) Lactate 1.0 0.7 - 2.0 mmol/L [facility] Blood 06/18/2022 10:5 0 PM CDT 06/18/2022 11:02 PM CDT Catherine Adams MD LAB BLOOD ORDERABLES Final Result Performing Organization Address [facility] de Phone Number [facility] [place] [address] * (ABNORMAL) Triglycerides (06/18/2022 10:50 PM CDT) Triglycerides 226(H) <=149 mg/dL [facility] Comment: Interpretive Data Ages < or [...] PM CDT 06/18/2022 10:59 PM CDT Narrative [facility] - 06/18/2022 11:57 PM CDT While on propofol infusion. Catherine Adams MD LAB BLOOD ORDERABLES Final Result Performing Organization Address City/[facility]/ZIP Co de Phone Number [facility] Department [place] [address] * (ABNORMAL) Phosphorus (06/18/2022 10:50 PM CDT) Phosphorus, pl 5.2(H) 2.3 - 4.5 mg/dL [facility] Blood 06/18/2022 10:5 0 PM CDT 06/18/2022 10:59 PM CDT Marcelina Lo HEEL EMERY BUFFER LAB BLOOD ORDERABLES Final Re sult Performing Organization Address [facility] Co de Phone Number [facility] Department [place] [address] * (ABNORMAL) Beta-hydroxybutyrate (06/18/2022 10:50 PM CDT) Beta-Hydroxybut yrate 1.3(H) 0.0 - 0.5 mmol/L [facility] Blood 06/18/2022 10:5 0 PM CDT 06/18/2022 10:59 PM CDT Marcelina Lo HEEL EMERY BUFFER LAB BLOOD ORDERABLES Final Re sult Performing Organization Address City/[facility]/ZIP Co de Phone Number [facility] Department [place] [address] * Lipase (06/18/2022 10:50 PM CDT) Pathologist [facility] Lipase 22 10 - 99 Units/L [facility] Blood 06/18/2022 10:5 0 PM CDT 06/18/2022 10:59 PM CDT Marcelina Lo HEEL EMERY BUFFER LAB BLOOD ORDERABLES Final Re sult Performing Organization Address City/[facility]/ZIP Co de Phone Number [facility] [place] [address] * (ABNORMAL) Magnesium (06/18/2022 10:50 PM CDT) [facility] Magnesium 3.1(H) 1.4 - 2.5 mg/dL [facility] Blood 06/18/2022 10:5 0 PM CDT 06/18/2022 11:02 PM CDT Marcelina Lo HEEL EMERY BUFFER LAB BLOOD ORDERABLES Final Re sult Performing Organization Address [facility] [place] [address] * (ABNORMAL) Comprehensive metabolic panel (06/18/2022 10:50 PM CDT) [facility] Sodium 140 135 - 145 mmol/L [facility] Potassium, pl 4.3 3.3 - 4.9 mmol/L [facility] Chloride 103 97 - 110 mmol/L [facility] CO2 22 22 - 32 mmol/L [facility] Anion gap 15 2 - 15 mmol/L [facility] BUN 35(H) 8 - 25 mg/dL [facility] Creatinine 5.01(H) 0.80 - 1.30 mg/dL [facility] Glucose 199 70 - 199 mg/dL [facility] Comment: Interpretive Data Fasting glucose >/= [...] 2017. Calcium 8.7 8.5 - 10.3 mg/dL [facility] Bilirubin, total 0.4 0.1 - 1.2 mg/dL [facility] Protein, pl 6.5 6.5 - 8.5 g/dL [facility] Albumin 2.8(L) 3.5 - 5.0 g/dL [facility] Alk phos 163(H) 40 - 130 Units/L [facility] ALT 34 7 - 55 Units/L [facility] AST 56(H) 10 - 50 Units/L [facility] Blood 06/18/2022 10:5 0 PM CDT 06/18/2022 11:02 PM CDT us Marcelina Lo HEEL EMERY BUFFER LAB BLOOD ORDERABLES Final Re sult [facility] Department [place] [address] * (ABNORMAL) CBC with auto differential (06/18/2022 10:50 PM CDT) WBC 8.4 3.8 - 9.9 K/cumm [facility] Hgb 7.5(L) 13.0 - 17.5 g/dL [facility] Hct 23.6(L) 38.9 - 50.3 % [facility] Plt 313 150 - 400 K/cumm [facility] MPV 9.8 9.1 - 12.3 fL [facility] RBC 2.41(L) 4.30 - 5.80 M/cumm [facility] MCV 97.9(H) 81.3 - 96.4 fL [facility] MCH 31.1 27.1 - 33.3 pg [facility] MCHC 31.8(L) 32.3 - 35.7 g/dL [facility] RDW CV 16.5(H) 11.1 - 14.9 % [facility] RDW SD 56.5(H) 35.7 - 48.1 fL [facility] NRBC abs 0.00 0.00 - 0.01 K/cumm [facility] Blood 06/18/2022 10:5 0 PM CDT 06/18/2022 10:59 PM CDT us Marcelina Lo HEEL EMERY BUFFER LAB BLOOD ORDERABLES Final Re sult Performing Organization Address City/[facility]/ZIP Co de Phone Number [facility] Department [place] [address] * (ABNORMAL) POCT glucose (06/18/2022 7:51 PM CDT) Glucose, POC 256(H) 70 - 199 mg/dL [facility] Blood 06/18/2022 7:51 PM CDT 06/18/2022 7:51 PM CDT us Catherine Adams MD LAB POCT ORDERABLES - DEVIC E Final Result Performing Organization Address [facility]/ZIP Co de Phone Number [facility] Department [place] [address] * ECG 12 lead (06/18/2022 6:40 PM CDT) Ventricular Rate EKG/Min 133 BPM [facility] Atrial Rate 147 BPM [facility] QRS-Interval (MSEC) 102 ms [facility] QT-Interval (MSEC) 332 ms [facility] QTc 494 ms [facility] R [place] -43 degrees [facility] T [place] 123 degrees [facility] Diagnosis Atrial fibrillation with rapid [...] anyterior leads Confirmed by KENN BILLINGSLEY M.D ([id number]) on 06/21/2022 1:28:53 PM [facility] 06/18/2022 6:40 PM CDT 06/21/2022 1:28 PM CDT Conrad Weston Chi, MD ECG ORDERABLES Final Res ult Performing Organization Address [facility] de Phone Number [facility] * POCT glucose (06/18/2022 5:11 PM CDT) Glucose, POC 168 70 - 199 mg/dL [facility] Blood 06/18/2022 5:11 PM CDT 06/18/2022 5:11 PM CDT Catherine Adams MD LAB POCT ORDERABLES - DEVIC E Final Result Performing Organization Address [facility] de Phone Number [facility] Department [place] [address] * POCT glucose (06/18/2022 4:16 PM CDT) Glucose, POC 181 70 - 199 mg/dL [facility] Blood 06/18/2022 4:16 PM CDT 06/18/2022 4:16 PM CDT Catherine Adams MD LAB POCT ORDERABLES - DEVIC E Final Result Performing Organization Address [facility] de Phone Number [facility] Department [place] [address] * (ABNORMAL) POCT glucose (06/18/2022 2:38 PM CDT) Glucose, POC 264(H) 70 - 199 mg/dL [facility] Blood 06/18/2022 2:38 PM CDT 06/18/2022 2:38 PM CDT us Catherine Adams MD LAB POCT ORDERABLES - DEVIC E Final Result Performing Organization Address [facility] Co de Phone Number [facility] [place] [address] * (ABNORMAL) POCT glucose (06/18/2022 1:34 PM CDT) Glucose, POC 376(H) 70 - 199 mg/dL [facility] Blood 06/18/2022 1:34 PM CDT 06/18/2022 1:34 PM CDT Catherine Adams MD LAB POCT ORDERABLES - DEVIC E Final Result Performing Organization Address [facility] de Phone Number [facility] [place] [address] * (ABNORMAL) Beta-hydroxybutyrate (06/18/2022 1:32 PM CDT) Pathologist [facility] Beta-Hydroxybut yrate 0.9(H) 0.0 - 0.5 mmol/L [facility] Blood 06/18/2022 1:32 PM CDT 06/18/2022 1:48 PM CDT Catherine Adams MD LAB BLOOD ORDERABLES Final Result Performing Organization Address [facility] Co de Phone Number [facility] [place] [address] * IR Central Line Placement > 5 [...] was obtained. ??Prior to beginning the procedure, [place] Protocol was used to confirm the patient's [...] was obtained. Prior to beginning the procedure, [place] Protocol was used to confirm the patient's [...] Glucose, POC 170 70 - 199 mg/dL [facility] Blood 06/18/2022 11:3 4 AM CDT 06/18/2022 11:34 AM CDT Result [facility] Catherine Adams MD LAB POCT ORDERABLES - DEVIC E Final Result [facility] Department [place] [address] * (ABNORMAL) Blood gas, arterial (06/18/2022 10:14 AM CDT) pH, Art 7.36 7.35 - 7.45 [facility] PCO2, Arterial 37 35 - 45 mmHg [facility] PO2, Arterial 74(L) 83 - 108 mmHg [facility] HCO3 Art (Calculated) 21 20 - 30 mmol/L [facility] BE, art -4 mmol/L [facility] Comment: Interpretive Data No Reference Range Established Current Interpretive Data was last revised on 2017 O2 Sat Art (Measured) 94 90 - 95 % [facility] Blood 06/18/2022 10:1 4 AM CDT 06/18/2022 10:23 AM CDT Marcelian Lo NP LAB BLOOD ORDERABLES Final Re sult Performing Organization Address [facility] Co de Phone Number [facility] Department [place] [address] * POCT glucose (06/18/2022 10:13 AM CDT) Pathologist [facility] Glucose, POC 83 70 - 199 mg/dL [facility] Blood 06/18/2022 10:1 3 AM CDT 06/18/2022 10:13 AM CDT us Catherine Adams MD LAB POCT ORDERABLES - DEVIC E Final Result Performing Organization Address [facility] de Phone Number [facility] Department [place] [address] * (ABNORMAL) eGFR (06/18/2022 8:52 AM CDT) [facility] eGFR 10(L) 90 - 130 mL/min/1. 73 m2 [facility] Comment: Interpretive Data Reference Interval Normal [...] ORDERABLES Final Re sult Performing Organization Address City/[facility] Co de Phone Number [facility] Department [place] [address] * Vancomycin level random (06/18/2022 8:52 AM CDT) Pathologist [facility] Vancomycin random 51.8 mcg/mL [facility] Comment: Repeated on Dilution Interpretive Data No reference ranges have been established for random drug levels. Current Interpretive Data was last revised on 2020. Blood 06/18/2022 8:52 AM CDT 06/18/2022 8:58 AM CDT Catherine Adams MD LAB BLOOD ORDERABLES Final Result Performing Organization Address [facility] de Phone Number [facility] Department [place] [address] * (ABNORMAL) Differential, auto (06/18/2022 8:52 AM CDT) Pathologist [facility] Neutrophil abs 5.2 1.7 - 6.5 K/cumm [facility] Imm gran abs 0.1 0.0 - 0.1 K/cumm [facility] Lymphocyte abs 1.8 0.8 - 3.3 K/cumm [facility] Monocyte abs 1.6(H) 0.2 - 0.8 K/cumm [facility] Eosinophil abs 0.2 0.0 - 0.5 K/cumm [facility] Basophil abs 0.1 0.0 - 0.1 K/cumm [facility] Neutrophil pct 58.4 % [facility] Comment: Interpretive Data Percent cell count reference ranges are not reported, since discordance with absolute values may lead to misinterpretation of CBC data. Current Interpretive Data was last revised on 2017. Imm gran pct 1.0 % [facility] Comment: Interpretive Data Percent cell count reference ranges are not reported, since discordance with absolute values may lead to misinterpretation of CBC data. Current Interpretive Data was last revised on 2017. Lymphocyte pct 19.8 % [facility] Comment: Interpretive Data Percent cell count reference ranges are not reported, since discordance with absolute values may lead to misinterpretation of CBC data. Current Interpretive Data was last revised on 2017. Monocyte pct 17.5 % [facility] Comment: Interpretive Data Percent cell count reference ranges are not reported, since discordance with absolute values may lead to misinterpretation of CBC data. Current Interpretive Data was last revised on 2017. Eosinophil pct 2.6 % [facility] Comment: Interpretive Data Percent cell count reference ranges are not reported, since discordance with absolute values may lead to misinterpretation of CBC data. Current Interpretive Data was last revised on 2017. Basophil pct 0.7 % [facility] Comment: Interpretive Data Percent cell count reference ranges are not reported, since discordance with absolute values may lead to misinterpretation of CBC data. Current Interpretive Data was last revised on 2017. Blood 06/18/2022 8:52 AM CDT 06/18/2022 8:58 AM CDT us Marcelina Lo HEEL EMERY BUFFER LAB BLOOD ORDERABLES Final Re sult [facility] Department [place] [address] * (ABNORMAL) Magnesium (06/18/2022 8:52 AM CDT) Magnesium 2.9(H) 1.4 - 2.5 mg/dL [facility] Blood 06/18/2022 8:52 AM CDT 06/18/2022 8:58 AM CDT us Marcelina Lo NP LAB BLOOD ORDERABLES Final Re sult [facility] Department [place] [address] * (ABNORMAL) Comprehensive metabolic panel (06/18/2022 8:52 AM CDT) Sodium 143 135 - 145 mmol/L [facility] Potassium, pl 4.0 3.3 - 4.9 mmol/L [facility] Chloride 104 97 - 110 mmol/L [facility] CO2 23 22 - 32 mmol/L [facility] Anion gap 16(H) 2 - 15 mmol/L [facility] BUN 40(H) 8 - 25 mg/dL [facility] Creatinine 6.24(H) 0.80 - 1.30 mg/dL [facility] Glucose 116 70 - 199 mg/dL [facility] Comment: Interpretive Data Fasting glucose >/= [...] 2017. Calcium 9.5 8.5 - 10.3 mg/dL [facility] Bilirubin, total 0.4 0.1 - 1.2 mg/dL [facility] Protein, pl 7.4 6.5 - 8.5 g/dL [facility] Albumin 3.3(L) 3.5 - 5.0 g/dL [facility] Alk phos 197(H) 40 - 130 Units/L [facility] ALT 36 7 - 55 Units/L [facility] AST 60(H) 10 - 50 Units/L [facility] Blood 06/18/2022 8:52 AM CDT 06/18/2022 8:58 AM CDT Marcelina Lo HEEL EMERY BUFFER LAB BLOOD ORDERABLES Final Re sult Performing Organization Address City/[facility]/ZIP Co de Phone Number [facility] Department [place] [address] * (ABNORMAL) CBC with auto differential (06/18/2022 8:52 AM CDT) WBC 8.9 3.8 - 9.9 K/cumm [facility] Hgb 8.8(L) 13.0 - 17.5 g/dL [facility] Hct 27.1(L) 38.9 - 50.3 % [facility] Plt 283 150 - 400 K/cumm [facility] MPV 9.7 9.1 - 12.3 fL [facility] RBC 2.81(L) 4.30 - 5.80 M/cumm [facility] MCV 96.4 81.3 - 96.4 fL [facility] MCH 31.3 27.1 - 33.3 pg [facility] MCHC 32.5 32.3 - 35.7 g/dL [facility] RDW CV 16.2(H) 11.1 - 14.9 % [facility] RDW SD 54.0(H) 35.7 - 48.1 fL [facility] NRBC abs 0.00 0.00 - 0.01 K/cumm [facility] Blood 06/18/2022 8:52 AM CDT 06/18/2022 8:58 AM CDT Marcelina Lo HEEL EMERY BUFFER LAB BLOOD ORDERABLES Final Re sult [facility] Department [place] [address] * POCT glucose (06/18/2022 8:49 AM CDT) Glucose, POC 109 70 - 199 mg/dL [facility] Blood 06/18/2022 8:49 AM CDT 06/18/2022 8:49 AM CDT Catherine Adams MD LAB POCT ORDERABLES - DEVIC E Final Result Performing Organization Address City/[facility] Co de Phone Number [facility] [place] [address] * POCT glucose (06/18/2022 6:53 AM CDT) Glucose, POC 145 70 - 199 mg/dL [facility] Blood 06/18/2022 6:53 AM CDT 06/18/2022 6:53 AM CDT Catherine Adams MD LAB POCT ORDERABLES - DEVIC E Final Result Performing Organization Address [facility] [place] [address] * POCT glucose (06/18/2022 6:11 AM CDT) Glucose, POC 164 70 - 199 mg/dL [facility] Blood 06/18/2022 6:11 AM CDT 06/18/2022 6:11 AM CDT Catherine Adams MD LAB POCT ORDERABLES - DEVIC E Final Result Performing Organization Address [facility] [place] [address] * XR Chest 1 View (06/18/2022 5:48 [...] aPTT 63(H) 27 - 37 sec [facility] Comment: Interpretive Data Therapeutic heparin range: [...] BLOOD ORDERABLES Final Result Performing Organization Address [facility] Co de Phone Number [facility] [place] [address] * (ABNORMAL) Blood gas, arterial (06/18/2022 5:13 AM CDT) pH, Art 7.33(L) 7.35 - 7.45 [facility] PCO2, Arterial 39 35 - 45 mmHg [facility] PO2, Arterial 92 83 - 108 mmHg [facility] HCO3 Art (Calculated) 21 20 - 30 mmol/L [facility] BE, art -5 mmol/L [facility] Comment: Interpretive Data No Reference Range Established Current Interpretive Data was last revised on 2017 O2 Sat Art (Measured) 96(H) 90 - 95 % [facility] Blood 06/18/2022 5:13 AM CDT 06/18/2022 5:34 AM CDT Marcelina Lo NP LAB BLOOD ORDERABLES Final Re sult Performing Organization Address [facility] Co de Phone Number [facility] [place] [address] * (ABNORMAL) POCT glucose (06/18/2022 5:10 AM CDT) Glucose, POC 205(H) 70 - 199 mg/dL [facility] Blood 06/18/2022 5:10 AM CDT 06/18/2022 5:10 AM CDT Catherine Adams MD LAB POCT ORDERABLES - DEVIC E Final Result Performing Organization Address City/[facility] Co de Phone Number [facility] [place] [address] * POCT glucose (06/18/2022 4:08 AM CDT) Glucose, POC 186 70 - 199 mg/dL [facility] Blood 06/18/2022 4:08 AM CDT 06/18/2022 4:08 AM CDT Catherine Adams MD LAB POCT ORDERABLES - DEVIC E Final Result Performing Organization Address City/State/[facility] [place] [address] * POCT glucose (06/18/2022 3:24 AM CDT) Glucose, POC 179 70 - 199 mg/dL [facility] Blood 06/18/2022 3:24 AM CDT 06/18/2022 3:24 AM CDT Catherine Adams MD LAB POCT ORDERABLES - DEVIC E Final Result Performing Organization Address City/[facility] [place] [address] * POCT glucose (06/18/2022 2:25 AM CDT) Glucose, POC 132 70 - 199 mg/dL [facility] Blood 06/18/2022 2:25 AM CDT 06/18/2022 2:25 AM CDT Catherine Adams MD LAB POCT ORDERABLES - DEVIC E Final Result Performing Organization Address City/[facility] Co de Phone [place] [address] * POCT glucose (06/18/2022 1:27 AM CDT) Glucose, POC 105 70 - 199 mg/dL [facility] Blood 06/18/2022 1:27 AM CDT 06/18/2022 1:27 AM CDT Catherine Adams MD LAB POCT ORDERABLES - DEVIC E Final Result Performing Organization Address [facility] Co de Phone Number [facility] [place] [address] * POCT glucose (06/17/2022 10:45 PM CDT) Pathologist [facility] Glucose, POC 138 70 - 199 mg/dL [facility] Blood 06/17/2022 10:4 5 PM CDT 06/17/2022 10:45 PM CDT Catherine Adams MD LAB POCT ORDERABLES - DEVIC E Final Result Performing Organization Address [facility] de Phone Number [facility] [place] [address] * (ABNORMAL) Hemoglobin and hematocrit (06/17/2022 10:31 PM CDT) [facility] Hgb 7.9(L) 13.0 - 17.5 g/dL [facility] Hct 24.0(L) 38.9 - 50.3 % [facility] Blood 06/17/2022 10:3 1 PM CDT 06/17/2022 10:45 PM CDT Tyra De La Torre MD LAB BLOOD ORDERABLES Final Resu lt Performing Organization Address [facility] [place] [address] * Type and screen (06/17/2022 10:31 PM CDT) [facility] Maribel, indirect Negative [facility] ABO Rh A Positive [facility] Blood 06/17/2022 10:3 1 PM CDT 06/17/2022 10:53 PM CDT Narrative ALESSANDRA CARRION - 06/17/2022 11:49 PM CDT Has the patient had Daratumumab or Isatuximab in the past 6 months?->Unknown Catherine Adams MD LAB BLOOD BANK TEST ORDERAB LES Final Result [facility] Department [place] [address] * (ABNORMAL) eGFR (06/17/2022 9:17 PM CDT) eGFR 11(L) 90 - 130 mL/min/1. 73 m2 [facility] Comment: Interpretive Data Reference Interval Normal [...] Adams MD LAB BLOOD ORDERABLES Final Result [facility] [place] [address] * (ABNORMAL) Magnesium (06/17/2022 9:17 PM CDT) Pathologist [facility] Magnesium 2.9(H) 1.4 - 2.5 mg/dL [facility] Blood 06/17/2022 9:17 PM CDT 06/17/2022 9:27 PM CDT Catherine Adams MD LAB BLOOD ORDERABLES Final Result Performing Organization Address [facility] de Phone Number [facility] [place] [address] * (ABNORMAL) Comprehensive metabolic panel (06/17/2022 9:17 PM CDT) [facility] Sodium 142 135 - 145 mmol/L [facility] Potassium, pl 3.2(L) 3.3 - 4.9 mmol/L [facility] Chloride 104 97 - 110 mmol/L [facility] CO2 23 22 - 32 mmol/L [facility] Anion gap 15 2 - 15 mmol/L [facility] BUN 41(H) 8 - 25 mg/dL [facility] Creatinine 5.65(H) 0.80 - 1.30 mg/dL [facility] Glucose 121 70 - 199 mg/dL [facility] Comment: Interpretive Data Fasting glucose >/= [...] 2017. Calcium 9.3 8.5 - 10.3 mg/dL [facility] Bilirubin, total 0.4 0.1 - 1.2 mg/dL [facility] Protein, pl 6.4(L) 6.5 - 8.5 g/dL [facility] Albumin 2.7(L) 3.5 - 5.0 g/dL [facility] Alk phos 181(H) 40 - 130 Units/L [facility] ALT 33 7 - 55 Units/L [facility] AST 52(H) 10 - 50 Units/L [facility] Blood 06/17/2022 9:17 PM CDT 06/17/2022 9:27 PM CDT Catherine Adams MD LAB BLOOD ORDERABLES Final Result [facility] Department [place] [address] * (ABNORMAL) Differential, auto (06/17/2022 9:17 PM CDT) Neutrophil abs 4.5 1.7 - 6.5 K/cumm [facility] Imm gran abs 0.1 0.0 - 0.1 K/cumm [facility] Lymphocyte abs 1.5 0.8 - 3.3 K/cumm [facility] Monocyte abs 1.4(H) 0.2 - 0.8 K/cumm [facility] Eosinophil abs 0.3 0.0 - 0.5 K/cumm [facility] Basophil abs 0.0 0.0 - 0.1 K/cumm [facility] Neutrophil pct 58.5 % [facility] Comment: Interpretive Data Percent cell count reference ranges are not reported, since discordance with absolute values may lead to misinterpretation of CBC data. Current Interpretive Data was last revised on 2017. Imm gran pct 1.0 % [facility] Comment: Interpretive Data Percent cell count reference ranges are not reported, since discordance with absolute values may lead to misinterpretation of CBC data. Current Interpretive Data was last revised on 2017. Lymphocyte pct 19.0 % [facility] Comment: Interpretive Data Percent cell count reference ranges are not reported, since discordance with absolute values may lead to misinterpretation of CBC data. Current Interpretive Data was last revised on 2017. Monocyte pct 17.6 % [facility] Comment: Interpretive Data Percent cell count reference ranges are not reported, since discordance with absolute values may lead to misinterpretation of CBC data. Current Interpretive Data was last revised on 2017. Eosinophil pct 3.5 % [facility] Comment: Interpretive Data Percent cell count reference ranges are not reported, since discordance with absolute values may lead to misinterpretation of CBC data. Current Interpretive Data was last revised on 2017. Basophil pct 0.4 % [facility] Comment: Interpretive Data Percent cell count reference ranges are not reported, since discordance with absolute values may lead to misinterpretation of CBC data. Current Interpretive Data was last revised on 2017. Blood 06/17/2022 9:17 PM CDT 06/17/2022 9:26 PM CDT us Marcelina Lo HEEL EMERY BUFFER LAB BLOOD ORDERABLES Final Re sult [facility] Department [place] [address] * Lactate (06/17/2022 9:17 PM CDT) Lactate 1.3 0.7 - 2.0 mmol/L [facility] Blood 06/17/2022 9:17 PM CDT 06/17/2022 9:29 PM CDT us Catherine Adams MD LAB BLOOD ORDERABLES Final Result Performing Organization Address City/[facility]/ZIP Co de Phone Number [facility] Department [place] [address] * (ABNORMAL) Triglycerides (06/17/2022 9:17 PM CDT) Triglycerides 272(H) <=149 mg/dL [facility] Comment: Interpretive Data Ages < or [...] PM CDT 06/17/2022 9:27 PM CDT Narrative [facility] - 06/17/2022 10:11 PM CDT While on propofol infusion. Catherine Adams MD LAB BLOOD ORDERABLES Final Result [facility] Department [place] [address] * (ABNORMAL) Phosphorus (06/17/2022 9:17 PM CDT) Phosphorus, pl 5.8(H) 2.3 - 4.5 mg/dL [facility] Blood 06/17/2022 9:17 PM CDT 06/17/2022 9:27 PM CDT Marcelina Lo HEEL EMERY BUFFER LAB BLOOD ORDERABLES Final Re sult Performing Organization Address City/[facility]/ZIP Co de Phone Number [facility] [place] [address] * Beta-hydroxybutyrate (06/17/2022 9:17 PM CDT) Pathologist [facility] Beta-Hydroxybut yrate 0.1 0.0 - 0.5 mmol/L [facility] Blood 06/17/2022 9:17 PM CDT 06/17/2022 9:26 PM CDT Marcelina Lo HEEL EMERY BUFFER LAB BLOOD ORDERABLES Final Re sult Performing Organization Address [facility] Co de Phone Number [facility] [place] [address] * Lipase (06/17/2022 9:17 PM CDT) Pathologist [facility] Lipase 22 10 - 99 Units/L [facility] Blood 06/17/2022 9:17 PM CDT 06/17/2022 9:27 PM CDT Marcelina Lo HEEL EMERY BUFFER LAB BLOOD ORDERABLES Final Re sult Performing Organization Address [facility] Co de Phone Number [facility] [place] [address] * (ABNORMAL) CBC with auto differential (06/17/2022 9:17 PM CDT) [facility] WBC 7.7 3.8 - 9.9 K/cumm [facility] Hgb 6.2(C) 13.0 - 17.5 g/dL [facility] Comment:Critical result call ed to and read back by MINERVA CLINTON RN on 06 17 2022 at 2214 to BRIAN BATES. Hct 19.1(L) 38.9 - 50.3 % [facility] Plt 300 150 - 400 K/cumm [facility] MPV 10.1 9.1 - 12.3 fL [facility] RBC 1.98(L) 4.30 - 5.80 M/cumm [facility] MCV 96.5(H) 81.3 - 96.4 fL [facility] MCH 31.3 27.1 - 33.3 pg [facility] MCHC 32.5 32.3 - 35.7 g/dL [facility] RDW CV 15.9(H) 11.1 - 14.9 % [facility] RDW SD 50.9(H) 35.7 - 48.1 fL [facility] NRBC abs 0.00 0.00 - 0.01 K/cumm [facility] Blood 06/17/2022 9:17 PM CDT 06/17/2022 9:26 PM CDT us Marcelina Lo NP LAB BLOOD ORDERABLES Final Re sult Performing Organization Address City/[facility]/ZIP Co de Phone Number [facility] Department [place] [address] * POCT glucose (06/17/2022 8:52 PM CDT) Glucose, POC 129 70 - 199 mg/dL [facility] Blood 06/17/2022 8:52 PM CDT 06/17/2022 8:52 PM CDT us Catherine Adams MD LAB POCT ORDERABLES - DEVIC E Final Result [facility] Department [place] [address] * POCT glucose (06/17/2022 7:40 PM CDT) Glucose, POC 118 70 - 199 mg/dL [facility] Blood 06/17/2022 7:40 PM CDT 06/17/2022 7:40 PM CDT us Catherine Adams MD LAB POCT ORDERABLES - DEVIC E Final Result ALESSANDRA AVILA [facility] Department [place] [address] * OK INSJ NON-TUNNELED CENTRAL VENOUS CATH AGE 3 YR/> (06/17/2022 7:30 PM CDT) Narrative Rufino Flores MD - 06/17/2022 7:30 PM CDT Aj Poe MD ? 06/17/2022 ??7:37 PM Central Line Insertion Date/Time: 06/17/2022 7:30 PM Performed by: Aj Poe MD Authorized by: Aj Poe MD [place] Protocol: RN Notified of Procedure: yes ?? 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 and risks, benefits, alternatives [...] Glucose, POC 133 70 - 199 mg/dL [facility] Blood 06/17/2022 5:11 PM CDT 06/17/2022 5:11 PM CDT us Catherine Adams MD LAB POCT ORDERABLES - DEVIC E Final Result Performing Organization Address [facility] de Phone Number [facility] Department [place] [address] * POCT glucose (06/17/2022 3:01 PM CDT) Glucose, POC 142 70 - 199 mg/dL [facility] Blood 06/17/2022 3:01 PM CDT 06/17/2022 3:01 PM CDT Result [facility] Catherine Adams MD LAB POCT ORDERABLES - DEVIC E Final Result Performing Organization Address [facility] Co de Phone Number [facility] Department [place] [address] * POCT glucose (06/17/2022 1:50 PM CDT) Glucose, POC 141 70 - 199 mg/dL [facility] Blood 06/17/2022 1:50 PM CDT 06/17/2022 1:50 PM CDT us Catherine Adams MD LAB POCT ORDERABLES - DEVIC E Final Result [facility] [place] [address] * POCT glucose (06/17/2022 12:59 PM CDT) Glucose, POC 151 70 - 199 mg/dL [facility] Blood 06/17/2022 12:5 9 PM CDT 06/17/2022 12:59 PM CDT us Catherine Adams MD LAB POCT ORDERABLES - DEVIC E Final Result Performing Organization Address [facility] [place] [address] * POCT glucose (06/17/2022 11:55 AM CDT) Glucose, POC 167 70 - 199 mg/dL [facility] Blood 06/17/2022 11:5 5 AM CDT 06/17/2022 11:55 AM CDT us Catherine Adams MD LAB POCT ORDERABLES - DEVIC E Final Result Performing Organization Address City/[facility]/ZIP Co de Phone Number [facility] [place] [address] * POCT glucose (06/17/2022 10:51 AM CDT) Glucose, POC 185 70 - 199 mg/dL [facility] Blood 06/17/2022 10:5 1 AM CDT 06/17/2022 10:51 AM CDT us Catherine Adams MD LAB POCT ORDERABLES - DEVIC E Final Result [facility] [place] [address] * POCT glucose (06/17/2022 10:11 AM CDT) Glucose, POC 119 70 - 199 mg/dL [facility] Blood 06/17/2022 10:1 1 AM CDT 06/17/2022 10:11 AM CDT Catherine Adams MD LAB POCT ORDERABLES - DEVIC E Final Result Performing Organization Address [facility] Co de Phone Number [facility] Department [place] [address] * POCT glucose (06/17/2022 9:39 AM CDT) Glucose, POC 181 70 - 199 mg/dL [facility] Blood 06/17/2022 9:39 AM CDT 06/17/2022 9:39 AM CDT Cathernie Adams MD LAB POCT ORDERABLES - DEVIC E Final Result Performing Organization Address [facility] de Phone Number [facility] Department [place] [address] * Blood culture Blood (06/17/2022 8:13 AM CDT) Report Final Report: No growth [facility] Blood 06/17/2022 8:13 AM CDT 06/17/2022 8:24 AM CDT Narrative [facility] - 06/21/2022 12:00 PM CDT 1. ?Blood [...] organism identification may be performed using the [employer] Gram-Positive Blood Culture Assay. This assay detects microbial DNA in positive blood culture broth via hybridization of target DNA to capture oligonucleotides on a microarray. This assay has been cleared by the [place] Food and Drug Administration and its performance characteristics have been verified by the [facility] Microbiology Laboratory. 5. ?For questions about this culture, contact the Microbiology Laboratory at [phone]. Interpretive data was last revised on 2020. Catherine Adams MD LAB MICROBIOLOGY - GENERAL ORDERABLES Final Result ALESSANDRA CARRION [facility] Department [place] [address] * Blood culture Blood (06/17/2022 8:13 AM [...] organism identification may be performed using the [employer] Gram-Positive Blood Culture Assay. This assay detects microbial DNA in positive blood culture broth via hybridization of target DNA to capture oligonucleotides on a microarray. This assay has been cleared by the [place] Food and Drug Administration and its performance characteristics have been verified by the [facility] Microbiology Laboratory. 5. ?For questions about this culture, contact the Microbiology Laboratory at [phone]. Interpretive data was last revised on 2020. us Catherine Adams MD LAB MICROBIOLOGY - GENERAL ORDERABLES Final Result [facility] Department [place] [address] * (ABNORMAL) eGFR (06/17/2022 8:02 AM CDT) eGFR 13(L) 90 - 130 mL/min/1. 73 m2 [facility] Comment: Interpretive Data Reference Interval Normal [...] 06/17/2022 8:25 AM CDT us Marcelina Lo HEEL EMERY BUFFER LAB BLOOD ORDERABLES Final Re sult [facility] Department [place] [address] * (ABNORMAL) Differential, auto (06/17/2022 8:02 AM CDT) Neutrophil abs 5.2 1.7 - 6.5 K/cumm [facility] Imm gran abs 0.1 0.0 - 0.1 K/cumm [facility] Lymphocyte abs 1.6 0.8 - 3.3 K/cumm [facility] Monocyte abs 1.3(H) 0.2 - 0.8 K/cumm [facility] Eosinophil abs 0.2 0.0 - 0.5 K/cumm [facility] Basophil abs 0.1 0.0 - 0.1 K/cumm [facility] Neutrophil pct 61.7 % [facility] Comment: Interpretive Data Percent cell count reference ranges are not reported, since discordance with absolute values may lead to misinterpretation of CBC data. Current Interpretive Data was last revised on 2017. Imm gran pct 1.3 % [facility] Comment: Interpretive Data Percent cell count reference ranges are not reported, since discordance with absolute values may lead to misinterpretation of CBC data. Current Interpretive Data was last revised on 2017. Lymphocyte pct 18.6 % [facility] Comment: Interpretive Data Percent cell count reference ranges are not reported, since discordance with absolute values may lead to misinterpretation of CBC data. Current Interpretive Data was last revised on 2017. Monocyte pct 15.2 % [facility] Comment: Interpretive Data Percent cell count reference ranges are not reported, since discordance with absolute values may lead to misinterpretation of CBC data. Current Interpretive Data was last revised on 2017. Eosinophil pct 2.6 % [facility] Comment: Interpretive Data Percent cell count reference ranges are not reported, since discordance with absolute values may lead to misinterpretation of CBC data. Current Interpretive Data was last revised on 2017. Basophil pct 0.6 % [facility] Comment: Interpretive Data Percent cell count reference ranges are not reported, since discordance with absolute values may lead to misinterpretation of CBC data. Current Interpretive Data was last revised on 2017. Blood 06/17/2022 8:02 AM CDT 06/17/2022 8:25 AM CDT us Marcelina Lo HEEL EMERY BUFFER LAB BLOOD ORDERABLES Final Re sult Performing Organization Address [facility] Co de Phone Number [facility] Department [place] [address] * (ABNORMAL) Magnesium (06/17/2022 8:02 AM CDT) Pathologist [facility] Magnesium 2.9(H) 1.4 - 2.5 mg/dL [facility] Blood 06/17/2022 8:02 AM CDT 06/17/2022 8:25 AM CDT Marcelina Lo HEEL EMERY BUFFER LAB BLOOD ORDERABLES Final Re sult Performing Organization Address [facility] Co de Phone Number [facility] [place] [address] * (ABNORMAL) Comprehensive metabolic panel (06/17/2022 8:02 AM CDT) Sodium 140 135 - 145 mmol/L [facility] Potassium, pl 3.9 3.3 - 4.9 mmol/L [facility] Chloride 104 97 - 110 mmol/L [facility] CO2 24 22 - 32 mmol/L [facility] Anion gap 12 2 - 15 mmol/L [facility] BUN 41(H) 8 - 25 mg/dL [facility] Creatinine 5.16(H) 0.80 - 1.30 mg/dL [facility] Glucose 206(H) 70 - 199 mg/dL [facility] Comment: Interpretive Data Fasting glucose >/= [...] 2017. Calcium 9.1 8.5 - 10.3 mg/dL [facility] Bilirubin, total 0.4 0.1 - 1.2 mg/dL [facility] Protein, pl 6.9 6.5 - 8.5 g/dL [facility] Albumin 3.0(L) 3.5 - 5.0 g/dL [facility] Alk phos 199(H) 40 - 130 Units/L [facility] ALT 35 7 - 55 Units/L [facility] AST 43 10 - 50 Units/L [facility] Blood 06/17/2022 8:02 AM CDT 06/17/2022 8:25 AM CDT us Marcelina Lo NP LAB BLOOD ORDERABLES Final Re sult [facility] Department [place] [address] * (ABNORMAL) CBC with auto differential (06/17/2022 8:02 AM CDT) WBC 8.5 3.8 - 9.9 K/cumm [facility] Hgb 7.9(L) 13.0 - 17.5 g/dL [facility] Hct 24.6(L) 38.9 - 50.3 % [facility] Plt 262 150 - 400 K/cumm [facility] MPV 10.1 9.1 - 12.3 fL [facility] RBC 2.55(L) 4.30 - 5.80 M/cumm [facility] MCV 96.5(H) 81.3 - 96.4 fL [facility] MCH 31.0 27.1 - 33.3 pg [facility] MCHC 32.1(L) 32.3 - 35.7 g/dL [facility] RDW CV 15.6(H) 11.1 - 14.9 % [facility] RDW SD 49.9(H) 35.7 - 48.1 fL [facility] NRBC abs 0.00 0.00 - 0.01 K/cumm [facility] Blood 06/17/2022 8:02 AM CDT 06/17/2022 8:25 AM CDT us Marcelina Lo HEEL EMERY BUFFER LAB BLOOD ORDERABLES Final Re sult Performing Organization Address City/[facility]/ZIP Co de Phone Number [facility] Department [place] [address] * (ABNORMAL) POCT glucose (06/17/2022 7:37 AM CDT) Glucose, POC 202(H) 70 - 199 mg/dL [facility] Blood 06/17/2022 7:37 AM CDT 06/17/2022 7:37 AM CDT us Catherine Adams MD LAB POCT ORDERABLES - DEVIC E Final Result [facility] Department [place] [address] * (ABNORMAL) aPTT (06/17/2022 6:14 AM CDT) aPTT 64(H) 27 - 37 sec [facility] Comment: Interpretive Data Therapeutic heparin range: 60.0 - 94.0 seconds. Based on correlation with therapeutic heparin activity range of 0.3-0.7 Units/mL. Current interpretive data was last revised on 2020. Blood 06/17/2022 6:14 AM CDT 06/17/2022 7:27 AM CDT Narrative [facility] - 06/17/2022 7:50 AM CDT Draw STAT PTT 6 hrs after initiation of heparin infusion, draw STAT PTT 6 hours after each dose/rate change, and every 6 hours until 2 consecutive PTTs are within therapeutic range. Once two consecutive PTT's are therapeutic (60-94.9 seconds), then draw PTT every AM until heparin is discontinued. Catherine Adams MD LAB BLOOD ORDERABLES Final Result [facility] Department [place] [address] * (ABNORMAL) POCT glucose (06/17/2022 6:13 AM CDT) [facility] Signature Glucose, POC 234(H) 70 - 199 mg/dL [facility] Blood 06/17/2022 6:13 AM CDT 06/17/2022 6:13 AM CDT Catherine Adams MD LAB POCT ORDERABLES - DEVIC E Final Result Performing Organization Address City/[facility]/ZIP Co de Phone Number [facility] Department [place] [address] * XR Chest 1 View (06/17/2022 5:29 [...] POCT glucose (06/17/2022 4:53 AM CDT) Pathologist [facility] Glucose, POC 176 70 - 199 mg/dL [facility] Blood 06/17/2022 4:53 AM CDT 06/17/2022 4:53 AM CDT Catherine Adams MD LAB POCT ORDERABLES - DEVIC E Final Result [facility] Department [place] [address] * (ABNORMAL) Blood gas, arterial (06/17/2022 3:46 AM CDT) Pathologist [facility] pH, Art 7.32(L) 7.35 - 7.45 [facility] PCO2, Arterial 44 35 - 45 mmHg [facility] PO2, Arterial 93 83 - 108 mmHg [facility] HCO3 Art (Calculated) 24 20 - 30 mmol/L [facility] BE, art -3 mmol/L [facility] Comment: Interpretive Data No Reference Range Established Current Interpretive Data was last revised on 2017 O2 Sat Art (Measured) 96(H) 90 - 95 % [facility] Blood 06/17/2022 3:46 AM CDT 06/17/2022 3:52 AM CDT us Marcelina Lo NP LAB BLOOD ORDERABLES Final Re sult Performing Organization Address [facility] de Phone Number [facility] Department [place] [address] * POCT glucose (06/17/2022 3:44 AM CDT) Glucose, POC 94 70 - 199 mg/dL [facility] Blood 06/17/2022 3:44 AM CDT 06/17/2022 3:44 AM CDT us Catherine Adams MD LAB POCT ORDERABLES - DEVIC E Final Result Performing Organization Address [facility] Co de Phone Number [facility] Department [place] [address] * POCT glucose (06/17/2022 2:52 AM CDT) Glucose, POC 119 70 - 199 mg/dL [facility] Blood 06/17/2022 2:52 AM CDT 06/17/2022 2:52 AM CDT us Catherine Adams MD LAB POCT ORDERABLES - DEVIC E Final Result Performing Organization Address [facility] Co de Phone Number [facility] Department [place] [address] * POCT glucose (06/17/2022 1:52 AM CDT) Glucose, POC 127 70 - 199 mg/dL [facility] Blood 06/17/2022 1:52 AM CDT 06/17/2022 1:52 AM CDT Catherine Adams MD LAB POCT ORDERABLES - DEVIC E Final Result Performing Organization Address City/[facility]/[place] [address] * POCT glucose (06/17/2022 12:36 AM CDT) Glucose, POC 165 70 - 199 mg/dL [facility] Blood 06/17/2022 12:3 6 AM CDT 06/17/2022 12:36 AM CDT Catherine Adams MD LAB POCT ORDERABLES - DEVIC E Final Result Performing Organization Address City/[facility] [place] [address] * (ABNORMAL) aPTT (06/17/2022 12:36 AM CDT) aPTT 67(H) 27 - 37 sec [facility] Comment: Interpretive Data Therapeutic heparin range: 60.0 - 94.0 seconds. Based on correlation with therapeutic heparin activity range of 0.3-0.7 Units/mL. Current interpretive data was last revised on 2020. Blood 06/17/2022 12:3 6 AM CDT 06/17/2022 1:04 AM CDT Narrative [facility] - 06/17/2022 1:09 AM CDT Draw STAT PTT 6 hrs after initiation of heparin infusion, draw STAT PTT 6 hours after each dose/rate change, and every 6 hours until 2 consecutive PTTs are within therapeutic range. Once two consecutive PTT's are therapeutic (60-94.9 seconds), then draw PTT every AM until heparin is discontinued. Catherine Aadms MD LAB BLOOD ORDERABLES Final Result Performing Organization Address [facility] Co de Phone Number [facility] [place] [address] * (ABNORMAL) Blood gas, arterial (06/16/2022 11:19 PM CDT) pH, Art 7.38 7.35 - 7.45 [facility] PCO2, Arterial 37 35 - 45 mmHg [facility] PO2, Arterial 99 83 - 108 mmHg [facility] HCO3 Art (Calculated) 22 20 - 30 mmol/L [facility] BE, art -3 mmol/L [facility] Comment: Interpretive Data No Reference Range Established Current Interpretive Data was last revised on 2017 O2 Sat Art (Measured) 97(H) 90 - 95 % [facility] Blood 06/16/2022 11:1 9 PM CDT 06/16/2022 11:24 PM CDT Result [facility] Marcelina Lo NP LAB BLOOD ORDERABLES Final Re sult Performing Organization Address [facility] de Phone Number [facility] Department [place] [address] * POCT glucose (06/16/2022 11:11 PM CDT) Glucose, POC 172 70 - 199 mg/dL [facility] Blood 06/16/2022 11:1 1 PM CDT 06/16/2022 11:11 PM CDT Catherine Adams MD LAB POCT ORDERABLES - DEVIC E Final Result Performing Organization Address [facility] Co de Phone Number [facility] Department [place] [address] * POCT glucose (06/16/2022 10:07 PM CDT) Glucose, POC 166 70 - 199 mg/dL [facility] Blood 06/16/2022 10:0 7 PM CDT 06/16/2022 10:07 PM CDT us Catherine Adams MD LAB POCT ORDERABLES - DEVIC E Final Result [facility] [address] [facility] [place] [address] * XR Chest 1 View (06/16/2022 9:03 [...] (ABNORMAL) eGFR (06/16/2022 8:52 PM CDT) Pathologist [facility] eGFR 14(L) 90 - 130 mL/min/1. 73 m2 [facility] Comment: Interpretive Data Reference Interval Normal [...] 06/16/2022 9:10 PM CDT us Marcelina Lo HEEL EMERY BUFFER LAB BLOOD ORDERABLES Final Re sult [facility] Department [place] [address] * (ABNORMAL) Differential, auto (06/16/2022 8:52 PM CDT) Neutrophil abs 5.4 1.7 - 6.5 K/cumm [facility] Imm gran abs 0.2(H) 0.0 - 0.1 K/cumm [facility] Lymphocyte abs 1.0 0.8 - 3.3 K/cumm [facility] Monocyte abs 1.1(H) 0.2 - 0.8 K/cumm [facility] Eosinophil abs 0.2 0.0 - 0.5 K/cumm [facility] Basophil abs 0.0 0.0 - 0.1 K/cumm [facility] Neutrophil pct 68.6 % [facility] Comment: Interpretive Data Percent cell count reference ranges are not reported, since discordance with absolute values may lead to misinterpretation of CBC data. Current Interpretive Data was last revised on 2017. Imm gran pct 2.0 % [facility] Comment: Interpretive Data Percent cell count reference ranges are not reported, since discordance with absolute values may lead to misinterpretation of CBC data. Current Interpretive Data was last revised on 2017. Lymphocyte pct 12.9 % [facility] Comment: Interpretive Data Percent cell count reference ranges are not reported, since discordance with absolute values may lead to misinterpretation of CBC data. Current Interpretive Data was last revised on 2017. Monocyte pct 14.3 % [facility] Comment: Interpretive Data Percent cell count reference ranges are not reported, since discordance with absolute values may lead to misinterpretation of CBC data. Current Interpretive Data was last revised on 2017. Eosinophil pct 1.9 % [facility] Comment: Interpretive Data Percent cell count reference ranges are not reported, since discordance with absolute values may lead to misinterpretation of CBC data. Current Interpretive Data was last revised on 2017. Basophil pct 0.3 % [facility] Comment: Interpretive Data Percent cell count reference ranges are not reported, since discordance with absolute values may lead to misinterpretation of CBC data. Current Interpretive Data was last revised on 2017. Blood 06/16/2022 8:52 PM CDT 06/16/2022 9:02 PM CDT Marcelina Lo HEEL EMERY BUFFER LAB BLOOD ORDERABLES Final Re sult Performing Organization Address [facility]/ZIP Co de Phone Number [facility] Department [place] [address] * Lactate (06/16/2022 8:52 PM CDT) Lactate 1.1 0.7 - 2.0 mmol/L [facility] Blood 06/16/2022 8:52 PM CDT 06/16/2022 9:10 PM CDT Catherine Adams MD LAB BLOOD ORDERABLES Final Result Performing Organization Address [facility] de Phone Number [facility] Department [place] [address] * (ABNORMAL) Triglycerides (06/16/2022 8:52 PM CDT) Triglycerides 253(H) <=149 mg/dL [facility] Comment: Interpretive Data Ages < or [...] PM CDT 06/16/2022 9:10 PM CDT Narrative [facility] - 06/16/2022 9:44 PM CDT While on propofol infusion. Catherine Adams MD LAB BLOOD ORDERABLES Final Result Performing Organization Address [facility] de Phone Number [facility] Department [place] [address] * (ABNORMAL) Phosphorus (06/16/2022 8:52 PM CDT) Phosphorus, pl 5.4(H) 2.3 - 4.5 mg/dL [facility] Blood 06/16/2022 8:52 PM CDT 06/16/2022 9:10 PM CDT Marcelina Lo HEEL EMERY BUFFER LAB BLOOD ORDERABLES Final Re sult Performing Organization Address [facility] de Phone Number [facility] Department [place] [address] * Beta-hydroxybutyrate (06/16/2022 8:52 PM CDT) Beta-Hydroxybut yrate 0.1 0.0 - 0.5 mmol/L [facility] Blood 06/16/2022 8:52 PM CDT 06/16/2022 9:02 PM CDT Marcelina Lo HEEL EMERY BUFFER LAB BLOOD ORDERABLES Edited R esult - Final Performing Organization Address [facility] de Phone Number [facility] Department [place] [address] * Lipase (06/16/2022 8:52 PM CDT) Pathologist [facility] Lipase 26 10 - 99 Units/L [facility] Blood 06/16/2022 8:52 PM CDT 06/16/2022 9:10 PM CDT Marcelina Lo HEEL EMERY BUFFER LAB BLOOD ORDERABLES Final Re sult Performing Organization Address City/[facility]/ZIP Co de Phone Number [facility] [place] [address] * (ABNORMAL) Magnesium (06/16/2022 8:52 PM CDT) [facility] Magnesium 3.0(H) 1.4 - 2.5 mg/dL [facility] Blood 06/16/2022 8:52 PM CDT 06/16/2022 9:10 PM CDT Marcelina Lo HEEL EMERY BUFFER LAB BLOOD ORDERABLES Final Re sult Performing Organization Address [facility] [place] [address] * (ABNORMAL) Comprehensive metabolic panel (06/16/2022 8:52 PM CDT) [facility] Sodium 140 135 - 145 mmol/L [facility] Potassium, pl 4.0 3.3 - 4.9 mmol/L [facility] Chloride 104 97 - 110 mmol/L [facility] CO2 25 22 - 32 mmol/L [facility] Anion gap 11 2 - 15 mmol/L [facility] BUN 36(H) 8 - 25 mg/dL [facility] Creatinine 4.65(H) 0.80 - 1.30 mg/dL [facility] Glucose 197 70 - 199 mg/dL [facility] Comment: Interpretive Data Fasting glucose >/= [...] 2017. Calcium 9.3 8.5 - 10.3 mg/dL [facility] Bilirubin, total 0.4 0.1 - 1.2 mg/dL [facility] Protein, pl 6.5 6.5 - 8.5 g/dL [facility] Albumin 2.7(L) 3.5 - 5.0 g/dL [facility] Alk phos 197(H) 40 - 130 Units/L [facility] ALT 35 7 - 55 Units/L [facility] AST 36 10 - 50 Units/L [facility] Blood 06/16/2022 8:52 PM CDT 06/16/2022 9:10 PM CDT us Marcelina Lo HEEL EMERY BUFFER LAB BLOOD ORDERABLES Final Re sult [facility] Department [place] [address] * (ABNORMAL) CBC with auto differential (06/16/2022 8:52 PM CDT) WBC 7.9 3.8 - 9.9 K/cumm [facility] Hgb 7.4(L) 13.0 - 17.5 g/dL [facility] Hct 22.8(L) 38.9 - 50.3 % [facility] Plt 214 150 - 400 K/cumm [facility] MPV 10.1 9.1 - 12.3 fL [facility] RBC 2.41(L) 4.30 - 5.80 M/cumm [facility] MCV 94.6 81.3 - 96.4 fL [facility] MCH 30.7 27.1 - 33.3 pg [facility] MCHC 32.5 32.3 - 35.7 g/dL [facility] RDW CV 14.9 11.1 - 14.9 % [facility] RDW SD 47.8 35.7 - 48.1 fL [facility] NRBC abs 0.00 0.00 - 0.01 K/cumm [facility] Blood 06/16/2022 8:52 PM CDT 06/16/2022 9:02 PM CDT Marcelina Lo HEEL EMERY BUFFER LAB BLOOD ORDERABLES Final Re sult Performing Organization Address City/[facility]/ZIP Co de Phone Number [facility] [place] [address] * (ABNORMAL) POCT glucose (06/16/2022 8:06 PM CDT) Glucose, POC 230(H) 70 - 199 mg/dL [facility] Blood 06/16/2022 8:06 PM CDT 06/16/2022 8:06 PM CDT Catherine Adams MD LAB POCT ORDERABLES - DEVIC E Final Result Performing Organization Address [facility] Co de Phone Number [facility] [place] [address] * (ABNORMAL) POCT glucose (06/16/2022 7:16 PM CDT) Glucose, POC 250(H) 70 - 199 mg/dL [facility] Blood 06/16/2022 7:16 PM CDT 06/16/2022 7:16 PM CDT Catherine Adams MD LAB POCT ORDERABLES - DEVIC E Final Result Performing Organization Address City/[facility] Co de Phone Number [facility] Department [place] [address] * (ABNORMAL) POCT glucose (06/16/2022 5:52 PM CDT) Glucose, POC 328(H) 70 - 199 mg/dL [facility] Blood 06/16/2022 5:52 PM CDT 06/16/2022 5:52 PM CDT Result [facility] Catherine Adams MD LAB POCT ORDERABLES - DEVIC E Final Result Performing Organization Address City/[facility]/ZIP Co de Phone Number [facility] Department [place] [address] * (ABNORMAL) aPTT (06/16/2022 4:49 PM CDT) [facility] aPTT 58(H) 27 - 37 sec [facility] Comment: Interpretive Data Therapeutic heparin range: 60.0 - 94.0 seconds. Based on correlation with therapeutic heparin activity range of 0.3-0.7 Units/mL. Current interpretive data was last revised on 2020. Blood 06/16/2022 4:49 PM CDT 06/16/2022 4:55 PM CDT Narrative [facility] - 06/16/2022 5:35 PM CDT Draw [...] BLOOD ORDERABLES Final Result Performing Organization Address City/[facility]/ZIP Co de Phone Number [facility] Department [place] [address] * (ABNORMAL) POCT glucose (06/16/2022 4:41 PM CDT) Glucose, POC 305(H) 70 - 199 mg/dL [facility] Blood 06/16/2022 4:41 PM CDT 06/16/2022 4:41 PM CDT us Catherine Adams MD LAB POCT ORDERABLES - DEVIC E Final Result Performing Organization Address [facility] Co de Phone Number [facility] [place] [address] * (ABNORMAL) Blood gas, arterial (06/16/2022 3:31 PM CDT) pH, Art 7.41 7.35 - 7.45 [facility] PCO2, Arterial 36 35 - 45 mmHg [facility] PO2, Arterial 82(L) 83 - 108 mmHg [facility] HCO3 Art (Calculated) 23 20 - 30 mmol/L [facility] BE, art -1 mmol/L [facility] Comment: Interpretive Data No Reference Range Established Current Interpretive Data was last revised on 2017 O2 Sat Art (Measured) 96(H) 90 - 95 % [facility] Blood 06/16/2022 3:31 PM CDT 06/16/2022 3:38 PM CDT us Marcelina Lo HEEL EMERY BUFFER LAB BLOOD ORDERABLES Final Re sult Performing Organization Address [facility] Co de Phone Number [facility] [place] [address] * (ABNORMAL) POCT glucose (06/16/2022 3:27 PM CDT) Glucose, POC 316(H) 70 - 199 mg/dL [facility] Blood 06/16/2022 3:27 PM CDT 06/16/2022 3:27 PM CDT us Catherine Adams MD LAB POCT ORDERABLES - DEVIC E Final Result Performing Organization Address City/[facility] Co de Phone Number [facility] Department [place] [address] * (ABNORMAL) POCT glucose (06/16/2022 1:00 PM CDT) Glucose, POC 327(H) 70 - 199 mg/dL [facility] Blood 06/16/2022 1:00 PM CDT 06/16/2022 1:00 PM CDT us Catherine Adams MD LAB POCT ORDERABLES - DEVIC E Final Result [facility] [address] [facility] [place] [address] * (ABNORMAL) eGFR (06/16/2022 12:57 PM CDT) eGFR 15(L) 90 - 130 mL/min/1. 73 m2 [facility] Comment: Interpretive Data Reference Interval Normal [...] BLOOD ORDERABLES Final Result Performing Organization Address City/[facility]/ZIP Co de Phone Number [facility] Department [place] [address] * (ABNORMAL) Basic metabolic panel (06/16/2022 12:57 PM CDT) Pathologist [facility] Sodium 137 135 - 145 mmol/L [facility] Potassium, pl 3.9 3.3 - 4.9 mmol/L [facility] Chloride 101 97 - 110 mmol/L [facility] CO2 26 22 - 32 mmol/L [facility] Anion gap 10 2 - 15 mmol/L [facility] BUN 33(H) 8 - 25 mg/dL [facility] Creatinine 4.34(H) 0.80 - 1.30 mg/dL [facility] Glucose 340(H) 70 - 199 mg/dL [facility] Comment: Interpretive Data Fasting glucose >/= [...] 2017. Calcium 9.0 8.5 - 10.3 mg/dL [facility] Blood 06/16/2022 12:5 7 PM CDT 06/16/2022 2:29 PM CDT Catherine Adams MD LAB BLOOD ORDERABLES Final Result Performing Organization Address City/[facility]/ZIP Co de Phone Number [facility] Department [place] [address] * (ABNORMAL) Blood gas, arterial (06/16/2022 10:54 AM CDT) Pathologist [facility] pH, Art 7.40 7.35 - 7.45 [facility] PCO2, Arterial 38 35 - 45 mmHg [facility] PO2, Arterial 66(L) 83 - 108 mmHg [facility] HCO3 Art (Calculated) 24 20 - 30 mmol/L [facility] BE, art -1 mmol/L [facility] Comment: Interpretive Data No Reference Range Established Current Interpretive Data was last revised on 2017 O2 Sat Art (Measured) 92 90 - 95 % [facility] Blood 06/16/2022 10:5 4 AM CDT 06/16/2022 11:01 AM CDT Marcelina Lo NP LAB BLOOD ORDERABLES Final Re sult Performing Organization Address City/[facility]/ZIP Co de Phone Number [facility] [place] [address] * (ABNORMAL) POCT glucose (06/16/2022 10:50 AM CDT) [facility] Glucose, POC 393(H) 70 - 199 mg/dL [facility] Blood 06/16/2022 10:5 0 AM CDT 06/16/2022 10:50 AM CDT Catherine Adams MD LAB POCT ORDERABLES - [place] [address] * (ABNORMAL) aPTT (06/16/2022 9:14 AM CDT) [facility] aPTT 54(H) 27 - 37 sec [facility] Comment: Interpretive Data Therapeutic heparin range: 60.0 - 94.0 seconds. Based on correlation with therapeutic heparin activity range of 0.3-0.7 Units/mL. Current interpretive data was last revised on 2020. Blood 06/16/2022 9:14 AM CDT 06/16/2022 9:33 AM CDT Narrative [facility] - 06/16/2022 9:58 AM CDT Draw [...] BLOOD ORDERABLES Final Result Performing Organization Address City/[facility]/ZIP Co de Phone Number [facility] [place] [address] * Beta-hydroxybutyrate (06/16/2022 7:54 AM CDT) Pathologist [facility] Beta-Hydroxybut yrate 0.1 0.0 - 0.5 mmol/L [facility] Blood 06/16/2022 7:54 AM CDT 06/16/2022 8:10 AM CDT Catherine Adams MD LAB BLOOD ORDERABLES Final Result Performing Organization Address [facility] de Phone Number [facility] Department [place] [address] * (ABNORMAL) eGFR (06/16/2022 7:54 AM CDT) eGFR 16(L) 90 - 130 mL/min/1. 73 m2 [facility] Comment: Interpretive Data Reference Interval Normal [...] 06/16/2022 8:06 AM CDT us Marcelina Lo HEEL EMERY BUFFER LAB BLOOD ORDERABLES Final Re sult [facility] Department [place] [address] * (ABNORMAL) Differential, auto (06/16/2022 7:54 AM CDT) Neutrophil abs 6.3 1.7 - 6.5 K/cumm [facility] Imm gran abs 0.4(H) 0.0 - 0.1 K/cumm [facility] Lymphocyte abs 1.0 0.8 - 3.3 K/cumm [facility] Monocyte abs 1.2(H) 0.2 - 0.8 K/cumm [facility] Eosinophil abs 0.2 0.0 - 0.5 K/cumm [facility] Basophil abs 0.0 0.0 - 0.1 K/cumm [facility] Neutrophil pct 69.4 % [facility] Comment: Interpretive Data Percent cell count reference ranges are not reported, since discordance with absolute values may lead to misinterpretation of CBC data. Current Interpretive Data was last revised on 2017. Imm gran pct 4.3 % [facility] Comment: Interpretive Data Percent cell count reference ranges are not reported, since discordance with absolute values may lead to misinterpretation of CBC data. Current Interpretive Data was last revised on 2017. Lymphocyte pct 11.0 % [facility] Comment: Interpretive Data Percent cell count reference ranges are not reported, since discordance with absolute values may lead to misinterpretation of CBC data. Current Interpretive Data was last revised on 2017. Monocyte pct 13.3 % [facility] Comment: Interpretive Data Percent cell count reference ranges are not reported, since discordance with absolute values may lead to misinterpretation of CBC data. Current Interpretive Data was last revised on 2017. Eosinophil pct 1.7 % [facility] Comment: Interpretive Data Percent cell count reference ranges are not reported, since discordance with absolute values may lead to misinterpretation of CBC data. Current Interpretive Data was last revised on 2017. Basophil pct 0.3 % [facility] Comment: Interpretive Data Percent cell count reference ranges are not reported, since discordance with absolute values may lead to misinterpretation of CBC data. Current Interpretive Data was last revised on 2017. Blood 06/16/2022 7:54 AM CDT 06/16/2022 8:06 AM CDT us Marcelina Lo HEEL EMERY BUFFER LAB BLOOD ORDERABLES Final Re sult [facility] Department [place] [address] * (ABNORMAL) Blood gas, arterial (06/16/2022 7:54 AM CDT) pH, Art 7.44 7.35 - 7.45 [facility] PCO2, Arterial 35 35 - 45 mmHg [facility] PO2, Arterial 58(L) 83 - 108 mmHg [facility] HCO3 Art (Calculated) 25 20 - 30 mmol/L [facility] BE, art 0 mmol/L [facility] Comment: Interpretive Data No Reference Range Established Current Interpretive Data was last revised on 2017 O2 Sat Art (Measured) 90 90 - 95 % [facility] Blood 06/16/2022 7:54 AM CDT 06/16/2022 8:01 AM CDT Catherine Adams MD LAB BLOOD ORDERABLES Final Result Performing Organization Address City/[facility]/ZIP Co de Phone Number [facility] Department [place] [address] * (ABNORMAL) Magnesium (06/16/2022 7:54 AM CDT) Magnesium 2.9(H) 1.4 - 2.5 mg/dL [facility] Blood 06/16/2022 7:54 AM CDT 06/16/2022 8:06 AM CDT Marcelina Lo NP LAB BLOOD ORDERABLES Final Re sult Performing Organization Address [facility] Co de Phone Number [facility] [place] [address] * (ABNORMAL) Comprehensive metabolic panel (06/16/2022 7:54 AM CDT) Sodium 136 135 - 145 mmol/L [facility] Potassium, pl 4.2 3.3 - 4.9 mmol/L [facility] Chloride 100 97 - 110 mmol/L [facility] [facility] CO2 26 22 - 32 mmol/L [facility] Anion gap 10 2 - 15 mmol/L [facility] BUN 33(H) 8 - 25 mg/dL [facility] Creatinine 4.13(H) 0.80 - 1.30 mg/dL [facility] Glucose 434(H) 70 - 199 mg/dL [facility] Comment: Interpretive Data Fasting glucose >/= [...] 2017. Calcium 8.9 8.5 - 10.3 mg/dL [facility] Bilirubin, total 0.4 0.1 - 1.2 mg/dL [facility] Protein, pl 6.2(L) 6.5 - 8.5 g/dL [facility] Albumin 3.1(L) 3.5 - 5.0 g/dL [facility] Alk phos 218(H) 40 - 130 Units/L [facility] ALT 36 7 - 55 Units/L [facility] AST 42 10 - 50 Units/L [facility] Blood 06/16/2022 7:54 AM CDT 06/16/2022 8:06 AM CDT us Marcelina Lo HEEL [facility]FFER LAB BLOOD ORDERABLES Final Re sult [facility] Department [place] [address] * (ABNORMAL) CBC with auto differential (06/16/2022 7:54 AM CDT) WBC 9.1 3.8 - 9.9 K/cumm [facility] Hgb 7.5(L) 13.0 - 17.5 g/dL [facility] Hct 22.8(L) 38.9 - 50.3 % [facility] Plt 214 150 - 400 K/cumm [facility] MPV 10.1 9.1 - 12.3 fL [facility] RBC 2.42(L) 4.30 - 5.80 M/cumm [facility] MCV 94.2 81.3 - 96.4 fL [facility] MCH 31.0 27.1 - 33.3 pg [facility] MCHC 32.9 32.3 - 35.7 g/dL [facility] RDW CV 14.6 11.1 - 14.9 % [facility] RDW SD 46.9 35.7 - 48.1 fL [facility] NRBC abs 0.02(H) 0.00 - 0.01 K/cumm [facility] Blood 06/16/2022 7:54 AM CDT 06/16/2022 8:06 AM CDT us Marcelina Lo [facility] LAB BLOOD ORDERABLES Final Re sult Performing Organization Address City/[facility] Co de Phone Number [facility] [place] [address] * (ABNORMAL) POCT glucose (06/16/2022 7:52 AM CDT) Glucose, POC 408(H) 70 - 199 mg/dL [facility] Blood 06/16/2022 7:52 AM CDT 06/16/2022 7:52 AM CDT us Catherine Adams MD LAB POCT ORDERABLES - DEVIC E Final Result Performing Organization Address [facility] Co de Phone Number [facility] Department [place] [address] * (ABNORMAL) POCT glucose (06/16/2022 4:52 AM CDT) Glucose, POC 425(H) 70 - 199 mg/dL [facility] Blood 06/16/2022 4:52 AM CDT 06/16/2022 4:52 AM CDT Catherine Adams MD LAB POCT ORDERABLES - DEVIC E Final Result Performing Organization Address City/[facility] Co de Phone Number [facility] [place] [address] * XR Chest 1 View (06/16/2022 4:43 AM CDT) Anatomical Region Laterality Modality Body, Chest N/A Computed Radiogr aphy 06/16/2022 9:29 AM CDT Impressions 06/16/2022 11:17 AM CDT Comparison is made to 06/15/2022. Endotracheal tube tip is difficult to see but likely terminates approximately 6.4 cm above the boni. Gastric tube terminates below left diaphragm and out of the [id number]. There are small lung volumes. Airspace opacity [...] below left diaphragm and out of the [id number]. There are small lung volumes. Airspace opacity [...] Glucose, POC 239(H) 70 - 199 mg/dL [facility] Blood 06/16/2022 12:0 1 AM CDT 06/16/2022 12:01 AM CDT Catherine Adams MD LAB POCT ORDERABLES - DEVIC E Final Result Performing Organization Address [facility] de Phone Number [facility] [place] [address] * (ABNORMAL) aPTT (06/16/2022 12:01 AM CDT) Pathologist [facility] aPTT 53(H) 27 - 37 sec [facility] Comment: Interpretive Data Therapeutic heparin range: 60.0 - 94.0 seconds. Based on correlation with therapeutic heparin activity range of 0.3-0.7 Units/mL. Current interpretive data was last revised on 2020. Blood 06/16/2022 12:0 1 AM CDT 06/16/2022 12:14 AM CDT Narrative [facility] - 06/16/2022 12:36 AM CDT Draw [...] BLOOD ORDERABLES Final Result Performing Organization Address [facility] de Phone Number [facility] Department [place] [address] * (ABNORMAL) CBC without differential (06/16/2022 12:01 AM CDT) [facility] WBC 11.1(H) 3.8 - 9.9 K/cumm [facility] Hgb 7.4(L) 13.0 - 17.5 g/dL [facility] Hct 22.6(L) 38.9 - 50.3 % [facility] Plt 215 150 - 400 K/cumm [facility] MPV 10.3 9.1 - 12.3 fL [facility] RBC 2.38(L) 4.30 - 5.80 M/cumm [facility] MCV 95.0 81.3 - 96.4 fL [facility] MCH 31.1 27.1 - 33.3 pg [facility] MCHC 32.7 32.3 - 35.7 g/dL [facility] RDW CV 14.4 11.1 - 14.9 % [facility] RDW SD 46.4 35.7 - 48.1 fL [facility] NRBC abs 0.05(H) 0.00 - 0.01 K/cumm [facility] Blood 06/16/2022 12:0 1 AM CDT 06/16/2022 12:22 AM CDT Narrative [facility] - 06/16/2022 12:29 AM CDT While on heparin infusion us Catherine Adams MD LAB BLOOD ORDERABLES Final Result [facility] Department [place] [address] * (ABNORMAL) eGFR (06/15/2022 8:51 PM CDT) eGFR 17(L) 90 - 130 mL/min/1. 73 m2 [facility] Comment: Interpretive Data Reference Interval Normal [...] 06/15/2022 9:34 PM CDT us Marcelina Lo HEEL [facility]FFER LAB BLOOD ORDERABLES Final Re sult [facility] Department [place] [address] * (ABNORMAL) Differential, auto (06/15/2022 8:51 PM CDT) Neutrophil abs 8.6(H) 1.7 - 6.5 K/cumm [facility] Imm gran abs 0.8(H) 0.0 - 0.1 K/cumm [facility] Lymphocyte abs 1.4 0.8 - 3.3 K/cumm [facility] Monocyte abs 1.7(H) 0.2 - 0.8 K/cumm [facility] Eosinophil abs 0.2 0.0 - 0.5 K/cumm [facility] Basophil abs 0.0 0.0 - 0.1 K/cumm [facility] Neutrophil pct 67.7 % [facility] Comment: Interpretive Data Percent cell count reference ranges are not reported, since discordance with absolute values may lead to misinterpretation of CBC data. Current Interpretive Data was last revised on 2017. Imm gran pct 6.1 % [facility] Comment: Interpretive Data Percent cell count reference ranges are not reported, since discordance with absolute values may lead to misinterpretation of CBC data. Current Interpretive Data was last revised on 2017. Lymphocyte pct 11.2 % [facility] Comment: Interpretive Data Percent cell count reference ranges are not reported, since discordance with absolute values may lead to misinterpretation of CBC data. Current Interpretive Data was last revised on 2017. Monocyte pct 13.3 % [facility] Comment: Interpretive Data Percent cell count reference ranges are not reported, since discordance with absolute values may lead to misinterpretation of CBC data. Current Interpretive Data was last revised on 2017. Eosinophil pct 1.5 % [facility] Comment: Interpretive Data Percent cell count reference ranges are not reported, since discordance with absolute values may lead to misinterpretation of CBC data. Current Interpretive Data was last revised on 2017. Basophil pct 0.2 % [facility] Comment: Interpretive Data Percent cell count reference ranges are not reported, since discordance with absolute values may lead to misinterpretation of CBC data. Current Interpretive Data was last revised on 2017. Blood 06/15/2022 8:51 PM CDT 06/15/2022 9:34 PM CDT us Marcelina Lo HEEL [facility]FFER LAB BLOOD ORDERABLES Final Re sult [facility] Department [place] [address] * (ABNORMAL) Triglycerides (06/15/2022 8:51 PM CDT) Triglycerides 227(H) <=149 mg/dL [facility] Comment: Interpretive Data Ages < or [...] PM CDT 06/15/2022 9:33 PM CDT Narrative [facility] - 06/15/2022 10:00 PM CDT While on propofol infusion. us Catherine Adams MD LAB BLOOD ORDERABLES Final Result Performing Organization Address [facility] de Phone Number [facility] Department [place] [address] * (ABNORMAL) Phosphorus (06/15/2022 8:51 PM CDT) Phosphorus, pl 5.0(H) 2.3 - 4.5 mg/dL [facility] Blood 06/15/2022 8:51 PM CDT 06/15/2022 9:33 PM CDT us Marcelina Lo HEEL [facility]FFER LAB BLOOD ORDERABLES Final Re sult Performing Organization Address [facility] de Phone Number [facility] Department [place] [address] * Beta-hydroxybutyrate (06/15/2022 8:51 PM CDT) Beta-Hydroxybut yrate 0.2 0.0 - 0.5 mmol/L [facility] Blood 06/15/2022 8:51 PM CDT 06/15/2022 9:26 PM CDT Marcelina Lo HEEL [facility] BUFFER LAB BLOOD ORDERABLES Edited R esult - Final Performing Organization Address [facility]/State/ZIP Co de Phone Number [facility] Department [place] [address] * Lipase (06/15/2022 8:51 PM CDT) [facility] Lipase 27 10 - 99 Units/L [facility] Blood 06/15/2022 8:51 PM CDT 06/15/2022 9:33 PM CDT Marcelina Lo HEEL EM[facility] BUFFER LAB BLOOD ORDERABLES Final Re sult Performing Organization Address [facility] Co de Phone Number [facility] Department [place] [address] * (ABNORMAL) Magnesium (06/15/2022 8:51 PM CDT) [facility] Magnesium 3.2(H) 1.4 - 2.5 mg/dL [facility] Blood 06/15/2022 8:51 PM CDT 06/15/2022 9:34 PM CDT Marcelina Lo HEEL EM[facility] BUFFER LAB BLOOD ORDERABLES Final Re sult Performing Organization Address [facility] de Phone Number [facility] Department [place] [address] * (ABNORMAL) Comprehensive metabolic panel (06/15/2022 8:51 PM CDT) [facility] Sodium 137 135 - 145 mmol/L [facility] Potassium, pl 4.6 3.3 - 4.9 mmol/L [facility] Chloride 101 97 - 110 mmol/L [facility] CO2 26 22 - 32 mmol/L [facility] Anion gap 10 2 - 15 mmol/L [facility] BUN 29(H) 8 - 25 mg/dL [facility] Creatinine 3.93(H) 0.80 - 1.30 mg/dL [facility] Glucose 179 70 - 199 mg/dL [facility] Comment: Interpretive Data Fasting glucose >/= [...] 2017. Calcium 9.5 8.5 - 10.3 mg/dL [facility] Bilirubin, total 0.5 0.1 - 1.2 mg/dL [facility] Protein, pl 6.5 6.5 - 8.5 g/dL [facility] Albumin 3.0(L) 3.5 - 5.0 g/dL [facility] Alk phos 235(H) 40 - 130 Units/L [facility] ALT 36 7 - 55 Units/L [facility] AST 50 10 - 50 Units/L [facility] Blood 06/15/2022 8:51 PM CDT 06/15/2022 9:34 PM CDT us Marcelina Lo HEEL EM[facility] BUFFER LAB BLOOD ORDERABLES Final Re sult [facility] Department [place] [address] * (ABNORMAL) CBC with auto differential (06/15/2022 8:51 PM CDT) Pathologist [facility] WBC 12.7(H) 3.8 - 9.9 K/cumm [facility] Hgb 7.2(L) 13.0 - 17.5 g/dL [facility] Hct 21.9(L) 38.9 - 50.3 % [facility] Plt 204 150 - 400 K/cumm [facility] MPV 10.4 9.1 - 12.3 fL [facility] RBC 2.30(L) 4.30 - 5.80 M/cumm [facility] MCV 95.2 81.3 - 96.4 fL [facility] MCH 31.3 27.1 - 33.3 pg [facility] MCHC 32.9 32.3 - 35.7 g/dL [facility] RDW CV 14.6 11.1 - 14.9 % [facility] RDW SD 47.4 35.7 - 48.1 fL [facility] NRBC abs 0.05(H) 0.00 - 0.01 K/cumm [facility] Blood 06/15/2022 8:51 PM CDT 06/15/2022 9:34 PM CDT us Marcelina Lo HEEL EM[facility] BUFFER LAB BLOOD ORDERABLES Final Re sult [facility] Department [place] [address] * POCT glucose (06/15/2022 8:49 PM CDT) Glucose, POC 183 70 - 199 mg/dL [facility] Blood 06/15/2022 8:49 PM CDT 06/15/2022 8:49 PM CDT us Catherine Adams MD LAB POCT ORDERABLES - DEVIC E Final Result Performing Organization Address City/[facility]/ZIP Co de Phone Number [facility] Department [place] [address] * C. difficile testing Stool (06/15/2022 6:15 PM CDT) C. diff result Negative, free toxin Negative , free toxin [facility] C. diff interp Negative for toxigenic Clostridioides (Clostridium) difficile. Analysis was performed using a glutatmate dehydrogenase antigen detection assay combined with a C. difficile toxin detection assay. [facility] Stool 06/15/2022 6:15 PM CDT 06/15/2022 8:14 PM CDT Narrative [facility] - 06/15/2022 11:02 PM CDT Testing for C. difficile is not recommended within 4 days of a negative result, 10 days of a positive, or 24 hours after laxative administration. If this order is clinically indicated, contact the lab and enter the passcode to complete this order.->[id number] Catherine Adams MD LAB MICROBIOLOGY - GENERAL ORDERABLES Final Result Performing Organization Address City/[facility] Co de Phone Number [facility] [place] [address] * VRE culture, surveillance Stool (06/15/2022 6:14 PM CDT) Report Final Report: Negative [facility] Stool 06/15/2022 6:14 PM CDT 06/15/2022 11:04 PM CDT Narrative [facility] - 06/18/2022 1:29 PM CDT Testing performed by [facility] Microbiology Laboratory ([phone]). Catherine Adams MD LAB MICROBIOLOGY - GENERAL ORDERABLES Final Result Performing Organization Address City/[facility] Co de Phone Number [facility] [place] [address] * (ABNORMAL) POCT glucose (06/15/2022 3:21 PM CDT) Glucose, POC 260(H) 70 - 199 mg/dL [facility] Blood 06/15/2022 3:21 PM CDT 06/15/2022 3:21 PM CDT Catherine Adams MD LAB POCT ORDERABLES - DEVIC E Final Result Performing Organization Address City/[facility]/ZIP Co de Phone Number [facility] [place] [address] * (ABNORMAL) Blood gas, arterial (06/15/2022 11:21 AM CDT) pH, Art 7.38 7.35 - 7.45 [facility] PCO2, Arterial 39 35 - 45 mmHg [facility] PO2, Arterial 100 83 - 108 mmHg [facility] HCO3 Art (Calculated) 23 20 - 30 mmol/L [facility] BE, art -2 mmol/L [facility] Comment: Interpretive Data No Reference Range Established Current Interpretive Data was last revised on 2017 O2 Sat Art (Measured) 98(H) 90 - 95 % [facility] Blood 06/15/2022 11:2 1 AM CDT 06/15/2022 11:32 AM CDT us Marcelina Lo HEEL EMERY BUFFER LAB BLOOD ORDERABLES Final Re sult Performing Organization Address [facility] Co de Phone Number [facility] Department [place] [address] * (ABNORMAL) POCT glucose (06/15/2022 11:20 AM CDT) [facility] Glucose, POC 332(H) 70 - 199 mg/dL [facility] Glucose comment 1 Glu2: RN/ Notified [facility] Blood 06/15/2022 11:2 0 AM CDT 06/15/2022 11:20 AM CDT Catherine Adams MD LAB POCT ORDERABLES - DEVIC E Final Result Performing Organization Address [facility] Co de Phone Number [facility] Department [place] [address] * Respiratory pathogen panel Nasopharyngeal (06/15/2022 11:05 AM CDT) [facility] Influenza A RNA Not Detected Not Detected [facility] Influenza B RNA Not Detected Not Detected [facility] RSV RNA Not Detected Not Detected [facility] COVID-19 RNA Not Detected Not Detected [facility] Coronavirus 229E RNA Not Detected Not Detected [facility] Coronavirus HKU1 RNA Not Detected Not Detected [facility] Coronavirus NL63 RNA Not Detected Not Detected [facility] Coronavirus OC43 RNA Not Detected Not Detected [facility] Adenovirus DNA Not Detected Not Detected [facility] Metapneumovirus RNA Not Detected Not Detected [facility] Rhinovirus/Enterov irus RNA Not Detected Not Detected [facility] Parainfluenza 1 RNA Not Detected Not Detected [facility] Parainfluenza 2 RNA Not Detected Not Detected [facility] Parainfluenza 3 RNA Not Detected Not Detected [facility] Parainfluenza 4 RNA Not Detected Not Detected [facility] B. pertussis DNA Not Detected Not Detected [facility] B. parapertussis DNA Not Detected Not Detected [facility] C. pneumoniae DNA Not Detected Not Detected [facility] M. pneumoniae DNA Not Detected Not Detected [facility] Nasopharyngeal 06/15/2022 11 :05 AM CDT 06/15/2022 11:19 AM CDT Narrative [facility] - 06/15/2022 1:02 PM CDT Is the Patient experiencing symptoms consistent with COVID?->Unknown Reason for testing?->Symptomatic Surveillance testing for transplant patient?->No ??Interpretive Data The [employer] Film[employer] Respiratory Panel (RP2.1) assay is a [...] assay has FDA clearance for testing of HEEL EMERY BUFFER swabs. ??The performance of additional specimen types has been assessed by the performing laboratory. ??The performance characteristics of this assay have been determined by [facility]. Current interpretive data was last revised on 22. us Catherine Adams MD LAB MICROBIOLOGY - GENERAL ORDERABLES Final Result [facility] Department [place] [address] * US Vein Duplex Lower Extremity Bilateral Complete (06/15/2022 11:00 AM CDT) Anatomical Region Laterality Modality Vascular Bilateral Ultrasound 06/15/2022 10:2 9 AM CDT Narrative 06/15/2022 12:34 PM CDT [employer] - Department of Vascular Surgery, Vascular Laboratory [address] [place] [id number] Lower Extremity Venous Ultrasound Report Patient Name: ADELIA GARVIN C : 1970 (51y 9m) Study Date: 06/15/2022 10:29:44 AM Gender: M Tech: Location: [id number] Ref.Provider: CATHERINE ADAMS Quality: Adequate Order Provider: CATHERINE ADAMS Procedures: Vascular Report: Venous Duplex imaging was performed bilaterally in the lower extremities. The common femoral, femoral, popliteal, posterior tibial, peroneal veins were evaluated for patency, spontaneity and phasicity with Doppler, compression and augmentation maneuvers. Great saphenous vein proximal at the junction was evaluated with compression maneuvers. Indications: Localized edema. Findings: Performing Marine Service Manager: Faye Zheng RVT, RDMS. Bilateral: Venous [...] performed. Electronically Signed By: Jase Mendez MD [facility] 2022-06-15 12:34:44 CDT CC: CC: Procedure Note Jase Mendez MD - 06/15/2022 [facility] - Department of Vascular Surgery,Vascular Laboratory [address] [place] [address] Lower Extremity Venous Ultrasound Report Patient Name: ADELIA GARVIN CPatient ID: [id number] : 1970 (51y 9m)Study Date: 06/15/2022 10:29:44 AM Gender: MAccession #: [id number] Tech: CDLocation: [id number] Ref.Provider: CATHERINE ADAMSQuality: Adequate Order Provider: CATHERINE ADAMSAccount #: [id number] Procedures: Vascular Report: Venous Duplex imaging was performed bilaterally in the lower extremities.The common femoral, femoral, popliteal, posterior tibial, peroneal veins wereevaluated for patency, spontaneity and phasicity with Doppler, compression and augmentationmaneuvers. Great saphenous vein proximal at the junction was evaluated with compressionmaneuvers. Indications: Localized edema. Findings: Performing Marine Service Manager: Faye Zheng, FILI, NAN. Bilateral: Venous Doppler [...] performed. Electronically Signed By: Jase Mendez MD [facility] 2022-06-15 12:34:44 CDT CC: CC: Catherine Adams MD IMG US PROCEDURES Final Res ult * (ABNORMAL) POCT glucose (06/15/2022 8:21 AM CDT) [facility] Signature Glucose, POC 260(H) 70 - 199 mg/dL [facility] Blood 06/15/2022 8:21 AM CDT 06/15/2022 8:21 AM CDT Catherine Adams MD LAB POCT ORDERABLES - DEVIC E Final Result [facility] Department [place] [address] * Oxyhemoglobin, central venous (06/15/2022 8:11 AM CDT) Pathologist [facility] Oxyhemoglobin, CV 66.6 % [facility] Comment: Interpretive Data No reference range established. Current interpretive data was last revised 2019. Blood 06/15/2022 8:11 AM CDT 06/15/2022 8:25 AM CDT Catherine Adams MD LAB BLOOD ORDERABLES Final Result Performing Organization Address [facility] Co de Phone Number [facility] Department [place] [address] * (ABNORMAL) aPTT (06/15/2022 8:11 AM CDT) [facility] aPTT 60(H) 27 - 37 sec [facility] Comment: Interpretive Data Therapeutic heparin range: 60.0 - 94.0 seconds. Based on correlation with therapeutic heparin activity range of 0.3-0.7 Units/mL. Current interpretive data was last revised on 2020. Blood 06/15/2022 8:11 AM CDT 06/15/2022 8:50 AM CDT Narrative [facility] - 06/15/2022 9:28 AM CDT Draw STAT [...] BLOOD ORDERABLES Final Result Performing Organization Address [facility] Co de Phone Number [facility] Department [place] [address] * (ABNORMAL) eGFR (06/15/2022 8:06 AM CDT) [facility] eGFR 27(L) 90 - 130 mL/min/1. 73 m2 [facility] Comment: Interpretive Data Reference Interval Normal [...] NP LAB BLOOD ORDERABLES Final Re sult [facility] Department [place] [address] * (ABNORMAL) Differential, auto (06/15/2022 8:06 AM CDT) Neutrophil abs 9.0(H) 1.7 - 6.5 K/cumm [facility] [facility] Imm gran abs 1.0(H) 0.0 - 0.1 K/cumm [facility] Lymphocyte abs 1.6 0.8 - 3.3 K/cumm [facility] Monocyte abs 1.5(H) 0.2 - 0.8 K/cumm [facility] Eosinophil abs 0.2 0.0 - 0.5 K/cumm [facility] Basophil abs 0.1 0.0 - 0.1 K/cumm [facility] Neutrophil pct 67.6 % [facility] Comment: Interpretive Data Percent cell count reference ranges are not reported, since discordance with absolute values may lead to misinterpretation of CBC data. Current Interpretive Data was last revised on 2017. Imm gran pct 7.4 % [facility] Comment: Interpretive Data Percent cell count reference ranges are not reported, since discordance with absolute values may lead to misinterpretation of CBC data. Current Interpretive Data was last revised on 2017. Lymphocyte pct 11.8 % [facility] Comment: Interpretive Data Percent cell count reference ranges are not reported, since discordance with absolute values may lead to misinterpretation of CBC data. Current Interpretive Data was last revised on 2017. Monocyte pct 11.2 % [facility] Comment: Interpretive Data Percent cell count reference ranges are not reported, since discordance with absolute values may lead to misinterpretation of CBC data. Current Interpretive Data was last revised on 2017. Eosinophil pct 1.5 % [facility] Comment: Interpretive Data Percent cell count reference ranges are not reported, since discordance with absolute values may lead to misinterpretation of CBC data. Current Interpretive Data was last revised on 2017. Basophil pct 0.5 % [facility] Comment: Interpretive Data Percent cell count reference ranges are not reported, since discordance with absolute values may lead to misinterpretation of CBC data. Current Interpretive Data was last revised on 2017. Blood 06/15/2022 8:06 AM CDT 06/15/2022 8:50 AM CDT us Marcelina Lo NP LAB BLOOD ORDERABLES Final Re sult [facility] Department [place] [address] * Blood culture Blood Arm, right (06/15/2022 [...] organism identification may be performed using the Jike Xueyuanigene Gram-Positive Blood Culture Assay. This assay detects microbial DNA in positive blood culture broth via hybridization of target DNA to capture oligonucleotides on a microarray. This assay has been cleared by the [place] Food and Drug Administration and its performance characteristics have been verified by the [facility] Microbiology Laboratory. 5. ?For questions about this culture, contact the Microbiology Laboratory at [phone]. Interpretive data was last revised on 2020. us Catherine Adams MD LAB MICROBIOLOGY - GENERAL ORDERABLES Final Result [facility]IL[facility] Department [place] [address] * Blood culture Blood Antecubital, right (06/15/2022 8:06 AM CDT) Report Final Report: No growth [facility] CARRION Blood (Antecubital, right) 06/15/2022 8:06 AM CDT 06/15/2022 9:37 AM CDT Narrative [facility] - 06/19/2022 12:00 PM CDT 1. [...] organism identification may be performed using the Jike Xueyuanigene Gram-Positive Blood Culture Assay. This assay detects microbial DNA in positive blood culture broth via hybridization of target DNA to capture oligonucleotides on a microarray. This assay has been cleared by the [place] Food and Drug Administration and its performance characteristics have been verified by the [facility] Microbiology Laboratory. 5. ?For questions about this culture, contact the Microbiology Laboratory at [phone]. Interpretive data was last revised on 2020. Catherine Adams MD LAB MICROBIOLOGY - GENERAL ORDERABLES Final Result [facility] Department [place] [address] * (ABNORMAL) Magnesium (06/15/2022 8:06 AM CDT) Magnesium 2.8(H) 1.4 - 2.5 mg/dL [facility] Blood 06/15/2022 8:06 AM CDT 06/15/2022 8:50 AM CDT us Marcelina Lo HEEL EMERY BUFFER LAB BLOOD ORDERABLES Final Re sult [facility] Department [place] [address] * (ABNORMAL) Comprehensive metabolic panel (06/15/2022 8:06 AM CDT) Sodium 134(L) 135 - 145 mmol/L [facility] Potassium, pl 5.0(H) 3.3 - 4.9 mmol/L [facility] Chloride 99 97 - 110 mmol/L [facility] CO2 26 22 - 32 mmol/L [facility] Anion gap 9 2 - 15 mmol/L [facility] BUN 21 8 - 25 mg/dL [facility] Creatinine 2.73(H) 0.80 - 1.30 mg/dL [facility] Glucose 273(H) 70 - 199 mg/dL [facility] Comment: Interpretive Data Fasting glucose >/= [...] 2017. Calcium 8.8 8.5 - 10.3 mg/dL [facility] Bilirubin, total 0.5 0.1 - 1.2 mg/dL [facility] Protein, pl 6.2(L) 6.5 - 8.5 g/dL [facility] Albumin 2.7(L) 3.5 - 5.0 g/dL [facility] Alk phos 256(H) 40 - 130 Units/L [facility] ALT 44 7 - 55 Units/L [facility] AST 61(H) 10 - 50 Units/L [facility] Blood 06/15/2022 8:06 AM CDT 06/15/2022 8:50 AM CDT us Marcelina Lo HEEL EMERY BUFFER LAB BLOOD ORDERABLES Final Re sult [facility] Department [place] [address] * (ABNORMAL) CBC with auto differential (06/15/2022 8:06 AM CDT) WBC 13.2(H) 3.8 - 9.9 K/cumm [facility] Hgb 7.7(L) 13.0 - 17.5 g/dL [facility] Hct 24.1(L) 38.9 - 50.3 % [facility] Plt 228 150 - 400 K/cumm [facility] MPV 10.6 9.1 - 12.3 fL [facility] RBC 2.45(L) 4.30 - 5.80 M/cumm [facility] MCV 98.4(H) 81.3 - 96.4 fL [facility] MCH 31.4 27.1 - 33.3 pg [facility] MCHC 32.0(L) 32.3 - 35.7 g/dL [facility] RDW CV 14.5 11.1 - 14.9 % [facility] RDW SD 49.6(H) 35.7 - 48.1 fL [facility] NRBC abs 0.11(H) 0.00 - 0.01 K/cumm [facility] Blood 06/15/2022 8:06 AM CDT 06/15/2022 8:50 AM CDT us Marcelina Lo HEEL EMERY BUFFER LAB BLOOD ORDERABLES Final Re sult [facility] Department [place] [address] * XR Chest 1 View (06/15/2022 5:21 AM CDT) Anatomical Region Laterality Modality Body, Chest N/A Computed Radiogr aphy 06/15/2022 8:52 AM CDT Impressions 06/15/2022 9:21 AM CDT Comparison is made to 06/14/2022. Endotracheal tube terminates near the thoracic inlet, approximately 7 cm above the boni. Recommend advancement. Gastric tube terminates below left hemidiaphragm out of the [id number]. A left internal jugular central venous catheter [...] terminates below left hemidiaphragm out of the [id number]. A left internal jugular central venous catheter [...] (ABNORMAL) POCT glucose (06/15/2022 3:37 AM CDT) [facility] Glucose, POC 264(H) 70 - 199 mg/dL [facility] Blood 06/15/2022 3:37 AM CDT 06/15/2022 3:37 AM CDT Catherine Adams MD LAB POCT ORDERABLES - DEVIC E Final Result Performing Organization Address [facility] Co de Phone Number [facility] [place] [address] * Lactate, whole blood (06/15/2022 3:37 AM CDT) Lactate, bld 0.8 0.7 - 2.0 mmol/L [facility] Blood 06/15/2022 3:37 AM CDT 06/15/2022 3:46 AM CDT Marcelina Lo HEEL EMERY BUFFER LAB BLOOD ORDERABLES Final Re sult Performing Organization Address [facility] de Phone Number [facility] [place] [address] * (ABNORMAL) Blood gas, arterial (06/15/2022 3:37 AM CDT) pH, Art 7.36 7.35 - 7.45 [facility] PCO2, Arterial 41 35 - 45 mmHg [facility] PO2, Arterial 64(L) 83 - 108 mmHg [facility] HCO3 Art (Calculated) 24 20 - 30 mmol/L [facility] BE, art -2 mmol/L [facility] Comment: Interpretive Data No Reference Range Established Current Interpretive Data was last revised on 2017 O2 Sat Art (Measured) 92 90 - 95 % [facility] Blood 06/15/2022 3:37 AM CDT 06/15/2022 3:46 AM CDT Marcelina Lo HEEL EMERY BUFFER LAB BLOOD ORDERABLES Final Re sult Performing Organization Address [facility] Co de Phone Number [facility] [place] [address] * Pneumonia PCR Tracheal aspirate (06/15/2022 1:53 AM CDT) C. pneumoniae DNA Not Detected Not Detected [facility] Legionella pneumophila DNA Not Detected Not Detected [facility] M. pneumoniae DNA Not Detected Not Detected [facility] Adenovirus DNA Not Detected Not Detected [facility] Coronavirus (229E, OC43, HKU1, NL63) RNA Not Detected Not Detected [facility] Metapneumovirus RNA Not Detected Not Detected [facility] Rhinovirus/Enterov irus RNA Not Detected Not Detected [facility] Influenza A RNA Not Detected Not Detected [facility] Influenza B RNA Not Detected Not Detected [facility] Parainfluenza virus (1-4) RNA Not Detected Not Detected [facility] RSV RNA Not Detected Not Detected [facility] Tracheal aspirate 06/15/2022 1:53 AM CDT 06/15/2022 4:22 AM CDT Narrative [facility] - 06/15/2022 5:52 AM CDT The [...] of this assay have been determined by [facility]. Current interpretive data was last revised on 2021. us Catherine Adams MD LAB MICROBIOLOGY - GENERAL ORDERABLES Final Result [facility] Department [place] [address] * Pneumonia PCR with aerobic culture and Gram stain Tracheal aspirate (06/15/2022 1:53 AM CDT) Direct Specimen Exam Molecular Analysis: Rapid molecular analysis has NOT detected bacterial targets (for a list of targets evaluated, refer to the interpretive data for this specimen). Correlation of molecular analysis with culture results is recommended. [facility] Direct Specimen Exam Stain: Few polymorphonuclear leukocytes seen. Few squamous epithelial cells seen. Few mixed bacterial stone seen on Gram stain. [facility] Report Final Report: Insignificant growth based on current clinical standards. [facility] Tracheal aspirate 06/15/2022 1:53 AM CDT 06/15/2022 3:09 AM CDT Narrative [facility] - 06/17/2022 10:03 AM CDT When rapid molecular testing results are reported, testing completed using the Pycno Pneumonia Panel. ??This molecular assay detects: Acinetobacter [...] performance characteristics have been confirmed by the [facility]. ??The performance of the Film[employer] Pneumonia Panel has not been established for monitoring treatment of infection and bacterial nucleic acids may persist independent of organism viability. Catherine Adams MD LAB MICROBIOLOGY - GENERAL ORDERABLES Final Result Performing Organization Address [facility] de Phone Number [facility] Department [place] [address] * (ABNORMAL) Blood gas, arterial (06/14/2022 11:53 PM CDT) pH, Art 7.36 7.35 - 7.45 [facility] PCO2, Arterial 43 35 - 45 mmHg [facility] PO2, Arterial 77(L) 83 - 108 mmHg [facility] HCO3 Art (Calculated) 25 20 - 30 mmol/L [facility] BE, art -1 mmol/L [facility] Comment: Interpretive Data No Reference Range Established Current Interpretive Data was last revised on 2017 O2 Sat Art (Measured) 94 90 - 95 % [facility] Blood 06/14/2022 11:5 3 PM CDT 06/14/2022 11:59 PM CDT Marcelina Lo HEEL EMERY BUFFER LAB BLOOD ORDERABLES Final Re sult Performing Organization Address [facility] Co de Phone Number [facility] Department [place] [address] * POCT glucose (06/14/2022 11:52 PM CDT) Glucose, POC 176 70 - 199 mg/dL [facility] Blood 06/14/2022 11:5 2 PM CDT 06/14/2022 11:52 PM CDT Catherine Adams MD LAB POCT ORDERABLES - DEVIC E Final Result Performing Organization Address [facility] Co de Phone Number [facility] Department [place] [address] * (ABNORMAL) eGFR (06/14/2022 7:41 PM CDT) eGFR 35(L) 90 - 130 mL/min/1. 73 m2 [facility] Comment: Interpretive Data Reference Interval Normal [...] BLOOD ORDERABLES Final Result Performing Organization Address City/[facility] Co de Phone Number ALESSANDRA CARRION [facility] Department [place] [address] * (ABNORMAL) Differential, auto (06/14/2022 7:41 PM [...] [facility] Neutrophil pct 66.0 % [facility] Comment: Interpretive Data Percent cell count reference ranges are not reported, since discordance with absolute values may lead to misinterpretation of CBC data. Current Interpretive Data was last revised on 2017. Imm gran pct 9.6 % [facility] Comment: Interpretive Data Percent cell count reference ranges are not reported, since discordance with absolute values may lead to misinterpretation of CBC data. Current Interpretive Data was last revised on 2017. Lymphocyte pct 11.2 % [facility] Comment: Interpretive Data Percent cell count reference ranges are not reported, since discordance with absolute values may lead to misinterpretation of CBC data. Current Interpretive Data was last revised on 2017. Monocyte pct 10.8 % [facility] Comment: Interpretive Data Percent cell count reference ranges are not reported, since discordance with absolute values may lead to misinterpretation of CBC data. Current Interpretive Data was last revised on 2017. Eosinophil pct 2.1 % [facility] Comment: Interpretive Data Percent cell count [...] BLOOD ORDERABLES Final Result Performing Organization Address City/[facility] Co de Phone Number [facility] Department [place] [address] * (ABNORMAL) Magnesium (06/14/2022 7:41 PM CDT) Pathologist [facility] Magnesium 3.0(H) 1.4 - 2.5 mg/dL [facility] Blood 06/14/2022 7:41 PM CDT 06/14/2022 7:49 PM CDT Catherine Adams MD LAB BLOOD ORDERABLES Final Result Performing Organization Address [facility] de Phone Number [facility] Department [place] [address] * (ABNORMAL) Comprehensive metabolic panel (06/14/2022 7:41 PM CDT) Pathologist [facility] Sodium 138 135 - 145 mmol/L [facility] Potassium, pl 4.7 3.3 - 4.9 mmol/L [facility] Chloride 102 97 - 110 mmol/L [facility] CO2 27 22 - 32 mmol/L [facility] Anion gap 9 2 - 15 mmol/L [facility] BUN 17 8 - 25 mg/dL [facility] Creatinine 2.22(H) 0.80 - 1.30 mg/dL [facility] Glucose 182 70 - 199 mg/dL [facility] Comment: Interpretive Data Fasting glucose >/= [...] 2017. Calcium 9.1 8.5 - 10.3 mg/dL [facility] Bilirubin, total 0.6 0.1 - 1.2 mg/dL [facility] Protein, pl 6.5 6.5 - 8.5 g/dL [facility] Albumin 3.1(L) 3.5 - 5.0 g/dL [facility] Alk phos 264(H) 40 - 130 Units/L [facility] ALT 45 7 - 55 Units/L [facility] AST 73(H) 10 - 50 Units/L [facility] Blood 06/14/2022 7:41 PM CDT 06/14/2022 7:49 PM CDT Catherine Adams MD LAB BLOOD ORDERABLES Final Result [facility] Department [place] [address] * (ABNORMAL) Triglycerides (06/14/2022 7:41 PM CDT) Triglycerides 482(H) <=149 mg/dL [facility] Comment: Interpretive Data Ages < or [...] PM CDT 06/14/2022 7:49 PM CDT Narrative [facility] - 06/14/2022 8:29 PM CDT While on propofol infusion. Catherine Adams MD LAB BLOOD ORDERABLES Final Result Performing Organization Address [facility] Co de Phone Number [facility] [place] [address] * Phosphorus (06/14/2022 7:41 PM CDT) Pathologist [facility] Phosphorus, pl 3.1 2.3 - 4.5 mg/dL [facility] Blood 06/14/2022 7:41 PM CDT 06/14/2022 7:49 PM CDT Marcelina Lo HEEL EMERY BUFFER LAB BLOOD ORDERABLES Final Re sult Performing Organization Address [facility] Co de Phone Number [facility] Department [place] [address] * (ABNORMAL) Beta-hydroxybutyrate (06/14/2022 7:41 PM CDT) Beta-Hydroxybut yrate 0.7(H) 0.0 - 0.5 mmol/L [facility] Blood 06/14/2022 7:41 PM CDT 06/14/2022 7:47 PM CDT Marcelina Lo HEEL EMERY BUFFER LAB BLOOD ORDERABLES Edited R esult - Final Performing Organization Address [facility] Co de Phone Number [facility] Department [place] [address] * Lipase (06/14/2022 7:41 PM CDT) [facility] Lipase 25 10 - 99 Units/L [facility] Blood 06/14/2022 7:41 PM CDT 06/14/2022 7:49 PM CDT Marcelina Lo HEEL EMERY BUFFER LAB BLOOD ORDERABLES Final Re sult Performing Organization Address City/[facility]/ZIP Co de Phone Number [facility] Department [place] [address] * (ABNORMAL) CBC with auto differential (06/14/2022 7:41 PM CDT) [facility] WBC 15.0(H) 3.8 - 9.9 K/cumm [facility] Hgb 8.3(L) 13.0 - 17.5 g/dL [facility] Hct 24.9(L) 38.9 - 50.3 % [facility] Plt 218 150 - 400 K/cumm [facility] MPV 10.4 9.1 - 12.3 fL [facility] RBC 2.62(L) 4.30 - 5.80 M/cumm [facility] MCV 95.0 81.3 - 96.4 fL [facility] MCH 31.7 27.1 - 33.3 pg [facility] MCHC 33.3 32.3 - 35.7 g/dL [facility] RDW CV 14.1 11.1 - 14.9 % [facility] RDW SD 47.3 35.7 - 48.1 fL [facility] NRBC abs 0.08(H) 0.00 - 0.01 K/cumm [facility] Blood 06/14/2022 7:41 PM CDT 06/14/2022 8:01 PM CDT Marcelina Lo HEEL EMERY BUFFER LAB BLOOD ORDERABLES Final Re sult [facility] Department [place] [address] * POCT glucose (06/14/2022 7:40 PM CDT) Glucose, POC 190 70 - 199 mg/dL [facility] Blood 06/14/2022 7:40 PM CDT 06/14/2022 7:40 PM CDT Catherine Adams MD LAB POCT ORDERABLES - DEVIC E Final Result Performing Organization Address [facility] [place] [address] * (ABNORMAL) Blood gas, arterial (06/14/2022 4:19 PM CDT) pH, Art 7.38 7.35 - 7.45 [facility] PCO2, Arterial 41 35 - 45 mmHg [facility] PO2, Arterial 76(L) 83 - 108 mmHg [facility] HCO3 Art (Calculated) 25 20 - 30 mmol/L [facility] BE, art -1 mmol/L [facility] Comment: Interpretive Data No Reference Range Established Current Interpretive Data was last revised on 2017 O2 Sat Art (Measured) 94 90 - 95 % [facility] Blood 06/14/2022 4:19 PM CDT 06/14/2022 4:38 PM CDT Marcelina Lo NP LAB BLOOD ORDERABLES Final Re sult Performing Organization Address [facility]/[place] [address] * (ABNORMAL) POCT glucose (06/14/2022 4:16 PM CDT) Glucose, POC 229(H) 70 - 199 mg/dL [facility] Glucose comment 1 Glu2: RN/ Notified [facility] Blood 06/14/2022 4:16 PM CDT 06/14/2022 4:16 PM CDT Catherine Adams MD LAB POCT ORDERABLES - DEVIC E Final Result Performing Organization Address City/State/[facility] Co de Phone Number [facility] [place] [address] * (ABNORMAL) POCT glucose (06/14/2022 11:21 AM CDT) [facility] Signature Glucose, POC 202(H) 70 - 199 mg/dL [facility] Blood 06/14/2022 11:2 1 AM CDT 06/14/2022 11:21 AM CDT Catherine Adams MD LAB POCT ORDERABLES - DEVIC E Final Result Performing Organization Address [facility] de Phone Number [facility] [place] [address] * XR Chest 1 View (06/14/2022 10:56 [...] POCT glucose (06/14/2022 8:18 AM CDT) Pathologist [facility] Glucose, POC 172 70 - 199 mg/dL [facility] Blood 06/14/2022 8:18 AM CDT 06/14/2022 8:18 AM CDT Catherine Adams MD LAB POCT ORDERABLES - DEVIC E Final Result [facility] Department [place] [address] * (ABNORMAL) eGFR (06/14/2022 8:16 AM CDT) Pathologist [facility] eGFR 35(L) 90 - 130 mL/min/1. 73 m2 [facility] Comment: Interpretive Data Reference Interval Normal [...] Adams MD LAB BLOOD ORDERABLES Final Result [facility] Department [place] [address] * (ABNORMAL) Differential, auto (06/14/2022 8:16 AM CDT) Neutrophil abs 10.1(H) 1.7 - 6.5 K/cumm [facility] Imm gran abs 1.8(H) 0.0 - 0.1 K/cumm [facility] Lymphocyte abs 2.0 0.8 - 3.3 K/cumm [facility] Monocyte abs 1.5(H) 0.2 - 0.8 K/cumm [facility] Eosinophil abs 0.3 0.0 - 0.5 K/cumm [facility] Basophil abs 0.1 0.0 - 0.1 K/cumm [facility] Neutrophil pct 64.1 % [facility] Comment: Interpretive Data Percent cell count reference ranges are not reported, since discordance with absolute values may lead to misinterpretation of CBC data. Current Interpretive Data was last revised on 2017. Imm gran pct 11.4 % [facility] Comment: Interpretive Data Percent cell count [...] ORDERABLES Final Result AL[facility]ANDR[facility] CARRION [facility] Department [place] [address] * (ABNORMAL) aPTT (06/14/2022 8:16 AM CDT) [...] BLOOD ORDERABLES Final Result Performing Organization Address [facility] [facility] de Phone Number [facility] Department [place] [address] * (ABNORMAL) Blood gas, arterial (06/14/2022 8:16 AM CDT) pH, Art 7.41 7.35 - 7.45 [facility] PCO2, Arterial 38 35 - 45 mmHg [facility] PO2, Arterial 89 83 - 108 mmHg [facility] HCO3 Art (Calculated) 25 20 - 30 mmol/L [facility] BE, art 0 mmol/L [facility] Comment: Interpretive Data No Reference Range Established Current Interpretive Data was last revised on 2017 O2 Sat Art (Measured) 97(H) 90 - 95 % [facility] Blood 06/14/2022 8:16 AM CDT 06/14/2022 8:27 AM CDT Marcelina Lo HEEL EMERY BUFFER LAB BLOOD ORDERABLES Final Re sult Performing Organization Address [facility] de Phone Number [facility] Department [place] [address] * (ABNORMAL) Magnesium (06/14/2022 8:16 AM CDT) Pathologist [facility] Magnesium 2.9(H) 1.4 - 2.5 mg/dL [facility] Blood 06/14/2022 8:16 AM CDT 06/14/2022 8:29 AM CDT Marcelina Lo HEEL EMERY BUFFER LAB BLOOD ORDERABLES Final Re sult Performing Organization Address [facility] de Phone Number [facility] Department [place] [address] * (ABNORMAL) Comprehensive metabolic panel (06/14/2022 8:16 AM CDT) Sodium 134(L) 135 - 145 mmol/L [facility] Potassium, pl 4.7 3.3 - 4.9 mmol/L [facility] Comment:Hemolyzed; Potassium value may be falsely elevated by as much as 0.3-0.5 mmol/L. Suggest redraw and reanalysis. Chloride 100 97 - 110 mmol/L [facility] CO2 25 22 - 32 mmol/L [facility] Anion gap 9 2 - 15 mmol/L [facility] BUN 16 8 - 25 mg/dL [facility] Creatinine 2.19(H) 0.80 - 1.30 mg/dL [facility] Glucose 171 70 - 199 mg/dL [facility] Comment: Interpretive Data Fasting glucose >/= [...] Calcium 9.5 8.5 - 10.3 mg/dL [facility] Bilirubin, total 0.6 0.1 - 1.2 mg/dL [facility] Protein, pl 6.6 6.5 - 8.5 g/dL [facility] Albumin 3.1(L) 3.5 - 5.0 g/dL [facility] Alk phos 276(H) 40 - 130 Units/L [facility] ALT 48 7 - 55 Units/L [facility] AST 81(H) 10 - 50 Units/L [facility] Comment:Hemolyzed; result ma y be falsely elevated Blood 06/14/2022 8:16 AM CDT 06/14/2022 8:29 AM CDT us Marcelina Lo HEEL EMERY BUFFER LAB BLOOD ORDERABLES Final Re sult Performing Organization Address City/[facility]/ZIP Co de Phone Number [facility] Department [place] [address] * (ABNORMAL) CBC with auto differential (06/14/2022 8:16 AM CDT) WBC 15.7(H) 3.8 - 9.9 K/cumm [facility] Hgb 8.3(L) 13.0 - 17.5 g/dL [facility] Hct 25.5(L) 38.9 - 50.3 % [facility] Plt 217 150 - 400 K/cumm [facility] MPV 10.6 9.1 - 12.3 fL [facility] RBC 2.63(L) 4.30 - 5.80 M/cumm [facility] MCV 97.0(H) 81.3 - 96.4 fL [facility] MCH 31.6 27.1 - 33.3 pg [facility] MCHC 32.5 32.3 - 35.7 g/dL [facility] RDW CV 13.8 11.1 - 14.9 % [facility] RDW SD 48.2(H) 35.7 - 48.1 fL [facility] NRBC abs 0.07(H) 0.00 - 0.01 K/cumm [facility] Blood 06/14/2022 8:16 AM CDT 06/14/2022 8:29 AM CDT us Marcelina Lo HEEL EMERY BUFFER LAB BLOOD ORDERABLES Final Re sult [facility] Department [place] [address] * POCT glucose (06/14/2022 7:46 AM CDT) Glucose, POC 180 70 - 199 mg/dL [facility] Blood 06/14/2022 7:46 AM CDT 06/14/2022 7:46 AM CDT Catherine Adams MD LAB POCT ORDERABLES - DEVIC E Final Result [facility] Department [place] [address] * XR Chest 1 View (06/14/2022 4:14 [...] Glucose, POC 163 70 - 199 mg/dL [facility] Blood 06/14/2022 4:01 AM CDT 06/14/2022 4:01 AM CDT us Catherine Adams MD LAB POCT ORDERABLES - DEVIC E Final Result [facility] Department [place] [address] * POCT glucose (06/13/2022 11:38 PM CDT) Glucose, POC 175 70 - 199 mg/dL [facility] Blood 06/13/2022 11:3 8 PM CDT 06/13/2022 11:38 PM CDT Result [facility] us Catherine Adams MD LAB POCT ORDERABLES - DEVIC E Final Result [facility] Department [place] [address] * (ABNORMAL) aPTT (06/13/2022 10:49 PM CDT) aPTT 72(H) 27 - 37 sec [facility] Comment: Interpretive Data Therapeutic heparin range: 60.0 - 94.0 seconds. Based on correlation with therapeutic heparin activity range of 0.3-0.7 Units/mL. Current interpretive data was last revised on 2020. Blood 06/13/2022 10:4 9 PM CDT 06/13/2022 11:55 PM CDT Narrative [facility] - 06/14/2022 12:04 AM CDT Check aPTT 6 hours after the start of Heparin infusion and 6 hours after any change in Heparin rate. (Target aPTT 61-80 seconds). Call Nephrology if outside range. Catherine Adams MD LAB BLOOD ORDERABLES Final Result Performing Organization Address [facility]/ZIP Co de Phone Number [facility] [place] [address] * (ABNORMAL) Vancomycin level trough (06/13/2022 10:49 PM CDT) [facility] Vancomycin trough 23.3(H) 10.0 - 20.0 mcg/mL [facility] Blood 06/13/2022 10:4 9 PM CDT 06/13/2022 11:10 PM CDT Catherine Adams MD LAB BLOOD ORDERABLES Final Result Performing Organization Address [facility] de Phone Number [facility] [place] [address] * (ABNORMAL) CBC without differential (06/13/2022 10:49 PM CDT) [facility] WBC 15.0(H) 3.8 - 9.9 K/cumm [facility] Hgb 7.7(L) 13.0 - 17.5 g/dL [facility] Hct 22.7(L) 38.9 - 50.3 % [facility] Plt 206 150 - 400 K/cumm [facility] MPV 10.6 9.1 - 12.3 fL [facility] RBC 2.41(L) 4.30 - 5.80 M/cumm [facility] MCV 94.2 81.3 - 96.4 fL [facility] MCH 32.0 27.1 - 33.3 pg [facility] MCHC 33.9 32.3 - 35.7 g/dL [facility] RDW CV 13.7 11.1 - 14.9 % [facility] RDW SD 46.4 35.7 - 48.1 fL [facility] NRBC abs 0.05(H) 0.00 - 0.01 K/cumm [facility] Blood 06/13/2022 10:4 9 PM CDT 06/13/2022 11:10 PM CDT Catherine Adams MD LAB BLOOD ORDERABLES Final Result Performing Organization Address City/[facility]/ZIP Co de Phone Number [facility] Department [place] [address] * (ABNORMAL) POCT glucose (06/13/2022 10:48 PM CDT) Glucose, POC 200(H) 70 - 199 mg/dL [facility] Blood 06/13/2022 10:4 8 PM CDT 06/13/2022 10:48 PM CDT Catherine Adams MD LAB POCT ORDERABLES - DEVIC E Final Result Performing Organization Address City/[facility] Co de Phone Number [facility] Department [place] [address] * POCT glucose (06/13/2022 8:28 PM CDT) Glucose, POC 182 70 - 199 mg/dL [facility] Blood 06/13/2022 8:28 PM CDT 06/13/2022 8:28 PM CDT Catherine Adams MD LAB POCT ORDERABLES - DEVIC E Final Result Performing Organization Address City/[facility] Co de Phone Number [facility] [place] [address] * (ABNORMAL) eGFR (06/13/2022 8:17 PM CDT) eGFR 35(L) 90 - 130 mL/min/1. 73 m2 [facility] Comment: Interpretive Data Reference Interval Normal [...] Adams MD LAB BLOOD ORDERABLES Final Result [facility] Department [place] [address] * (ABNORMAL) Differential, auto (06/13/2022 8:17 PM CDT) Neutrophil abs 10.6(H) 1.7 - 6.5 K/cumm [facility] Imm gran abs 2.2(H) 0.0 - 0.1 K/cumm [facility] Lymphocyte abs 2.3 0.8 - 3.3 K/cumm [facility] Monocyte abs 1.5(H) 0.2 - 0.8 K/cumm [facility] Eosinophil abs 0.3 0.0 - 0.5 K/cumm [facility] Basophil abs 0.1 0.0 - 0.1 K/cumm [facility] Neutrophil pct 62.7 % [facility] Comment: Confirmed by smear review Interpretive Data Percent cell count reference ranges are not reported, since discordance with absolute values may lead to misinterpretation of CBC data. Current Interpretive Data was last revised on 2017. Imm gran pct 13.0 % [facility] Comment: Interpretive Data Percent cell count reference ranges are not reported, since discordance with absolute values may lead to misinterpretation of CBC data. Current Interpretive Data was last revised on 2017. Lymphocyte pct 13.4 % [facility] Comment: Interpretive Data Percent cell count reference ranges are not reported, since discordance with absolute values may lead to misinterpretation of CBC data. Current Interpretive Data was last revised on 2017. Monocyte pct 8.9 % [facility] Comment: Interpretive Data Percent cell count reference ranges are not reported, since discordance with absolute values may lead to misinterpretation of CBC data. Current Interpretive Data was last revised on 2017. Eosinophil pct 1.7 % [facility] Comment: Interpretive Data Percent cell count reference ranges are not reported, since discordance with absolute values may lead to misinterpretation of CBC data. Current Interpretive Data was last revised on 2017. Basophil pct 0.3 % [facility] Comment: Interpretive Data Percent cell count reference ranges are not reported, since discordance with absolute values may lead to misinterpretation of CBC data. Current Interpretive Data was last revised on 2017. Blood 06/13/2022 8:17 PM CDT 06/13/2022 8:34 PM CDT us Catherine Adams MD LAB BLOOD ORDERABLES Final Result [facility] Department [place] [address] * (ABNORMAL) Magnesium (06/13/2022 8:17 PM CDT) Magnesium 2.7(H) 1.4 - 2.5 mg/dL [facility] Blood 06/13/2022 8:17 PM CDT 06/13/2022 8:33 PM CDT Catherine Adams MD LAB BLOOD ORDERABLES Final Result [facility] Department [place] [address] * (ABNORMAL) Comprehensive metabolic panel (06/13/2022 8:17 PM CDT) Pathologist [facility] Sodium 135 135 - 145 mmol/L [facility] Potassium, pl 4.9 3.3 - 4.9 mmol/L [facility] Chloride 99 97 - 110 mmol/L [facility] CO2 26 22 - 32 mmol/L [facility] Anion gap 10 2 - 15 mmol/L [facility] BUN 17 8 - 25 mg/dL [facility] Creatinine 2.21(H) 0.80 - 1.30 mg/dL [facility] Glucose 179 70 - 199 mg/dL [facility] Comment: Interpretive Data Fasting glucose >/= [...] 2017. Calcium 8.9 8.5 - 10.3 mg/dL [facility] Bilirubin, total 0.6 0.1 - 1.2 mg/dL [facility] Protein, pl 6.2(L) 6.5 - 8.5 g/dL [facility] Albumin 3.0(L) 3.5 - 5.0 g/dL [facility] Alk phos 274(H) 40 - 130 Units/L [facility] ALT 47 7 - 55 Units/L [facility] AST 80(H) 10 - 50 Units/L [facility] Blood 06/13/2022 8:17 PM CDT 06/13/2022 8:33 PM CDT Catherine Adams MD LAB BLOOD ORDERABLES Final Result Performing Organization Address [facility] Co de Phone Number [facility] [place] [address] * Lactate, whole blood (06/13/2022 8:17 PM CDT) Lactate, bld 0.8 0.7 - 2.0 mmol/L [facility] Blood 06/13/2022 8:17 PM CDT 06/13/2022 8:26 PM CDT Marcelina Lo HEEL EMERY BUFFER LAB BLOOD ORDERABLES Final Re sult Performing Organization Address [facility] Co de Phone Number [facility] [place] [address] * (ABNORMAL) Blood gas, arterial (06/13/2022 8:17 PM CDT) pH, Art 7.42 7.35 - 7.45 [facility] PCO2, Arterial 37 35 - 45 mmHg [facility] PO2, Arterial 73(L) 83 - 108 mmHg [facility] HCO3 Art (Calculated) 24 20 - 30 mmol/L [facility] BE, art 0 mmol/L [facility] Comment: Interpretive Data No Reference Range Established Current Interpretive Data was last revised on 2017 O2 Sat Art (Measured) 94 90 - 95 % [facility] Blood 06/13/2022 8:17 PM CDT 06/13/2022 8:26 PM CDT Marcelina D. Lo HEEL EMERY BUFFER LAB BLOOD ORDERABLES Final Re sult Performing Organization Address [facility] Co de Phone Number [facility] Department [place] [address] * (ABNORMAL) Triglycerides (06/13/2022 8:17 PM CDT) Pathologist [facility] Triglycerides 324(H) <=149 mg/dL [facility] Comment: Interpretive Data Ages < or [...] PM CDT 06/13/2022 8:33 PM CDT Narrative [facility] - 06/13/2022 9:29 PM CDT While on propofol infusion. Catherine Adams MD LAB BLOOD ORDERABLES Final Result Performing Organization Address [facility] de Phone Number [facility] Department [place] [address] * Phosphorus (06/13/2022 8:17 PM CDT) Pathologist [facility] Phosphorus, pl 3.1 2.3 - 4.5 mg/dL [facility] Blood 06/13/2022 8:17 PM CDT 06/13/2022 8:33 PM CDT Marcelina Lo HEEL EMERY BUFFER LAB BLOOD ORDERABLES Final Re sult Performing Organization Address [facility] Co de Phone Number [facility] [place] [address] * (ABNORMAL) Beta-hydroxybutyrate (06/13/2022 8:17 PM CDT) [facility] Beta-Hydroxybut yrate 1.2(H) 0.0 - 0.5 mmol/L [facility] Blood 06/13/2022 8:17 PM CDT 06/13/2022 8:34 PM CDT Marcelina Lo HEEL EMERY BUFFER LAB BLOOD ORDERABLES Edited R esult - Final Performing Organization Address [facility] Co de Phone Number [facility] [place] [address] * Lipase (06/13/2022 8:17 PM CDT) Pathologist [facility] Lipase 16 10 - 99 Units/L [facility] Blood 06/13/2022 8:17 PM CDT 06/13/2022 8:33 PM CDT Marcelina Lo HEEL EMERY BUFFER LAB BLOOD ORDERABLES Final Re sult Performing Organization Address [facility] Co de Phone Number [facility] [place] [address] * (ABNORMAL) CBC with auto differential (06/13/2022 8:17 PM CDT) Pathologist [facility] WBC 16.9(H) 3.8 - 9.9 K/cumm [facility] Hgb 8.0(L) 13.0 - 17.5 g/dL [facility] Hct 24.2(L) 38.9 - 50.3 % [facility] Plt 202 150 - 400 K/cumm [facility] MPV 10.7 9.1 - 12.3 fL [facility] RBC 2.55(L) 4.30 - 5.80 M/cumm [facility] MCV 94.9 81.3 - 96.4 fL [facility] MCH 31.4 27.1 - 33.3 pg [facility] MCHC 33.1 32.3 - 35.7 g/dL [facility] RDW CV 13.7 11.1 - 14.9 % [facility] RDW SD 46.6 35.7 - 48.1 fL [facility] NRBC abs 0.07(H) 0.00 - 0.01 K/cumm [facility] Blood 06/13/2022 8:17 PM CDT 06/13/2022 8:34 PM CDT us Marcelina Lo NP LAB BLOOD ORDERABLES Final Re sult [facility] Department [place] [address] * XR Chest 1 View (06/13/2022 4:45 PM CDT) Anatomical Region Laterality Modality Body, Chest N/A Computed Radiogr aphy 06/13/2022 4:58 PM CDT Impressions 06/13/2022 4:58 PM CDT Comparison is made to the prior from 06/13/2022. Endotracheal tube terminates 3 cm above the boni. Nasogastric tube terminates below the diaphragms on the [id number]. Left internal jugular approach central venous catheter tip overlies the confluence of the brachial cephalic veins, unchanged. Patchy bibasilar airspace opacities are increased from the prior radiograph earlier today, most consistent with interval aspiration. There is a small left pleural effusion. No pneumothorax. Electronically signed by: Abelardo Spencer M.D. Narrative 06/13/2022 4:58 PM CDT EXAMINATION: 1 view chest radiograph Procedure Note Abelardo Spnecer MD - 06/13/2022 EXAMINATION: 1 view chest radiograph IMPRESSION: Comparison is made to the prior from 06/13/2022. Endotracheal tube terminates 3 cm above the boni. Nasogastric tube terminates below the diaphragms on the [id number]. Left internal jugular approach central venous catheter [...] aPTT 71(H) 27 - 37 sec [facility] Comment: Interpretive Data Therapeutic heparin range: 60.0 - 94.0 seconds. Based on correlation with therapeutic heparin activity range of 0.3-0.7 Units/mL. Current interpretive data was last revised on 2020. Blood 06/13/2022 4:12 PM CDT 06/13/2022 4:32 PM CDT Narrative [facility] - 06/13/2022 4:42 PM CDT Draw [...] ORDERABLES Final Result [facility] Department [place] [address] * (ABNORMAL) Blood gas, arterial (06/13/2022 4:12 PM CDT) pH, Art 7.43 7.35 - 7.45 [facility] PCO2, Arterial 39 35 - 45 mmHg [facility] PO2, Arterial 63(L) 83 - 108 mmHg [facility] HCO3 Art (Calculated) 27 20 - 30 mmol/L [facility] BE, art 2 mmol/L [facility] Comment: Interpretive Data No Reference Range Established Current Interpretive Data was last revised on 2017 O2 Sat Art (Measured) 92 90 - 95 % [facility] Blood 06/13/2022 4:12 PM CDT 06/13/2022 4:20 PM CDT us Marcelina Lo HEEL EMERY BUFFER LAB BLOOD ORDERABLES Final Re sult Performing Organization Address [facility] Co de Phone Number [facility] Department [place] [address] * Potassium, whole blood (06/13/2022 4:12 PM CDT) Potassium, bld 4.5 3.3 - 4.9 mmol/L [facility] Blood 06/13/2022 4:12 PM CDT 06/13/2022 4:20 PM CDT us Marcelina Lo HEEL EMERY BUFFER LAB BLOOD ORDERABLES Final Re sult Performing Organization Address [facility] Co de Phone Number [facility] Department [place] [address] * Lactate, whole blood (06/13/2022 4:12 PM CDT) Lactate, bld 0.9 0.7 - 2.0 mmol/L [facility] Blood 06/13/2022 4:12 PM CDT 06/13/2022 4:20 PM CDT us Marcelina Lo HEEL EMERY BUFFER LAB BLOOD ORDERABLES Final Re sult Performing Organization Address [facility] Co de Phone Number [facility] [place] [address] * POCT glucose (06/13/2022 4:11 PM CDT) Glucose, POC 99 70 - 199 mg/dL [facility] Blood 06/13/2022 4:11 PM CDT 06/13/2022 4:11 PM CDT Catherine Adams MD LAB POCT ORDERABLES - DEVIC E Final Result Performing Organization Address City/[facility]/ZIP Co de Phone Number [facility] [place] [address] * POCT glucose (06/13/2022 12:29 PM CDT) [facility] Glucose, POC 129 70 - 199 mg/dL [facility] Blood 06/13/2022 12:2 9 PM CDT 06/13/2022 12:29 PM CDT Catherine Adams MD LAB POCT ORDERABLES - DEVIC E Final Result Performing Organization Address City/[facility] [place] [address] * (ABNORMAL) Blood gas, arterial (06/13/2022 12:20 PM CDT) [facility] pH, Art 7.40 7.35 - 7.45 [facility] PCO2, Arterial 42 35 - 45 mmHg [facility] PO2, Arterial 60(L) 83 - 108 mmHg [facility] HCO3 Art (Calculated) 27 20 - 30 mmol/L [facility] BE, art 2 mmol/L [facility] Comment: Interpretive Data No Reference Range Established Current Interpretive Data was last revised on 2017 O2 Sat Art (Measured) 90 90 - 95 % [facility] Blood 06/13/2022 12:2 0 PM CDT 06/13/2022 1:01 PM CDT us Marcelina Lo NP LAB BLOOD ORDERABLES Final Re sult [facility] Department [place] [address] * XR Chest 1 View (06/13/2022 11:11 [...] Potassium, bld 5.7(H) 3.3 - 4.9 mmol/L [facility] Blood 06/13/2022 9:41 AM CDT 06/13/2022 9:47 AM CDT Marcelina Lo HEEL EMERY BUFFER LAB BLOOD ORDERABLES Final Re sult Performing Organization Address [facility]/ZIP Co de Phone Number [facility] Department [place] [address] * Lactate, whole blood (06/13/2022 9:41 AM CDT) Pathologist [facility] Lactate, bld 1.0 0.7 - 2.0 mmol/L [facility] Blood 06/13/2022 9:41 AM CDT 06/13/2022 9:47 AM CDT Marcelina Lo HEEL EMERY BUFFER LAB BLOOD ORDERABLES Final Re sult Performing Organization Address [facility]/ZIP Co de Phone Number [facility] Department [place] [address] * (ABNORMAL) Blood gas, arterial (06/13/2022 9:41 AM CDT) pH, Art 7.40 7.35 - 7.45 [facility] PCO2, Arterial 40 35 - 45 mmHg [facility] PO2, Arterial 66(L) 83 - 108 mmHg [facility] HCO3 Art (Calculated) 26 20 - 30 mmol/L [facility] BE, art 0 mmol/L [facility] Comment: Interpretive Data No Reference Range Established Current Interpretive Data was last revised on 2017 O2 Sat Art (Measured) 93 90 - 95 % [facility] Blood 06/13/2022 9:41 AM CDT 06/13/2022 9:47 AM CDT us Marcelina Lo HEEL EMERY BUFFER LAB BLOOD ORDERABLES Final Re sult Performing Organization Address [facility] Co de Phone Number [facility] [place] [address] * (ABNORMAL) POCT glucose (06/13/2022 9:38 AM CDT) Pathologist [facility] Glucose, POC 215(H) 70 - 199 mg/dL [facility] Blood 06/13/2022 9:38 AM CDT 06/13/2022 9:38 AM CDT Catherine Adams MD LAB POCT ORDERABLES - DEVIC E Final Result Performing Organization Address [facility] de Phone Number [facility] [place] [address] * TRANSTHORACIC ECHO (TTE) COMPLETE W DOPPLER/CF W CONTRAST W BUBBLE (06/13/2022 9:34 AM CDT) [facility] LV EF 65 % CARDIOREPORT Anatomical Region Laterality Modality Ultrasound 06/13/2022 7:10 AM CDT Narrative 06/13/2022 11:08 AM CDT Patient name: Adelia Garvin Date of test: 06/13/2022 Type of test: TTE w/Doppler Hospital #: 0 Date of : 1970 (M) Marine Service Manager: Elli Larsen RDCS Referring Physician: CATHERINE ADAMS MD Contrast Agent: 0.8 ml. Optison Admin., (2.2 ml Wasted) and NS Bubble Study Contrast Administered by: Floor RN Supervised/Interpreted by: Vincenzo Stoddard MD Diagnosis: Location: [facility] Reason for test: TTE with bubble [...] 2=Hypo 3=Akinetic 4=Dyskin./Aneurysm 0=Not visualized) Parasternal [place]:MAS=1 BAS=1 MIL=1 IVETH=1 Parasternal [place]:MAS=1 MIS=1 [place]=1 MIL=1 MAL=1 MA=1 Apical 4 Chambers:=1 MIS=1 BIS=1 BAL=1 MAL=1 AL=1 AC=1 Apical 2 Chambers:AI=1 [place]=1 BI=1 BA=1 MA=1 AA=1 AC=1 LV Global [...] MD By signing this report, the attending membership assistant certifies that he or she has personally supervised and interpreted the echocardiogram and has reviewed and or edited and agrees with the written comments contained within the report. Procedure Note Vincenzo Stoddard MD - 06/13/2022 Patient name: Adelia Garvin Date of test: 06/13/2022 Type of test: TTE w/Doppler Hospital #: 0 Date of : 1970 (M) Marine Service Manager: Elli Larsen RDCS Referring Physician: CATHERINE ADAMS MD Contrast Agent: 0.8 ml. Optison Admin., (2.2 ml Wasted) and NS Bubble Study Contrast Administered by: Floor RN Supervised/Interpreted by: Vincenzo Stoddard MD Diagnosis: Location: [facility] Reason for test: TTE with bubble [...] 2=Hypo 3=Akinetic 4=Dyskin./Aneurysm 0=Not visualized) Parasternal [place]:MAS=1 BAS=1 MIL=1 IVETH=1 Parasternal [place]:MAS=1 MIS=1 [place]=1 MIL=1 MAL=1 MA=1 Apical 4 Chambers:=1 MIS=1 BIS=1 BAL=1 MAL=1 AL=1 AC=1 Apical 2 Chambers:AI=1 [place]=1 BI=1 BA=1 MA=1 AA=1 AC=1 LV Global [...] MD By signing this report, the attending membership assistant certifies that he or she has personally supervised and interpreted the echocardiogram and has reviewed and or edited and agrees with the written comments contained within the report. us Catherine Adams MD CV ECHO PROCEDURES Final Re sult * (ABNORMAL) Manual Differential (06/13/2022 9:33 AM CDT) Differential Manual [facility] Cells Counted 115 [facility] Neutrophil abs 13.0(H) 1.7 - 6.5 K/cumm [facility] Imm gran abs 1.2(H) 0.0 - 0.1 K/cumm [facility] Lymphocyte abs 0.7(L) 0.8 - 3.3 K/cumm [facility] Monocyte abs 0.4 0.2 - 0.8 K/cumm [facility] Eosinophil abs 0.3 0.0 - 0.5 K/cumm [facility] Neutrophil pct 83.6 % [facility] Comment: Interpretive Data Percent cell count reference ranges are not reported, since discordance with absolute values may lead to misinterpretation of CBC data. Current Interpretive Data was last revised on 2017. Lymphocyte pct 4.3 % [facility] Comment: Interpretive Data Percent cell count [...] revised on 2017. Eosinophil pct 1.7 % [facility] Comment: Interpretive Data Percent cell count reference ranges are not reported, since discordance with absolute values may lead to misinterpretation of CBC data. Current Interpretive Data was last revised on 2017. Metamyelocyte pct 5.2 % [facility] Myelocyte pct 2.6 % [facility] Blood 06/13/2022 9:33 AM CDT 06/13/2022 10:10 AM CDT us Catherine Adams MD LAB BLOOD ORDERABLES Final Result Performing Organization Address City/State/[facility] Co de Phone Number [facility] Department [place] [address] * (ABNORMAL) eGFR (06/13/2022 9:33 AM CDT) eGFR 34(L) 90 - 130 mL/min/1. 73 m2 [facility] Comment: Interpretive Data Reference Interval Normal [...] BLOOD ORDERABLES Final Result Performing Organization Address [facility]/ZIP Co de Phone Number [facility] [place], [place] [id number] * (ABNORMAL) Magnesium (06/13/2022 9:33 AM CDT) Magnesium 2.8(H) 1.4 - 2.5 mg/dL [facility] Blood 06/13/2022 9:33 AM CDT 06/13/2022 10:06 AM CDT us Marcelina Lo HEEL EMERY BUFFER LAB BLOOD ORDERABLES Final Re sult Performing Organization Address [facility] Co de Phone Number [facility] Department [place] [address] * (ABNORMAL) Comprehensive metabolic panel (06/13/2022 9:33 AM CDT) Sodium 135 135 - 145 mmol/L [facility] Potassium, pl 5.6(H) 3.3 - 4.9 mmol/L [facility] Chloride 98 97 - 110 mmol/L [facility] CO2 26 22 - 32 mmol/L [facility] Anion gap 11 2 - 15 mmol/L [facility] BUN 19 8 - 25 mg/dL [facility] Creatinine 2.26(H) 0.80 - 1.30 mg/dL [facility] Glucose 217(H) 70 - 199 mg/dL [facility] Comment: Interpretive Data Fasting glucose >/= [...] 2017. Calcium 8.7 8.5 - 10.3 mg/dL [facility] Bilirubin, total 0.7 0.1 - 1.2 mg/dL [facility] Protein, pl 6.5 6.5 - 8.5 g/dL [facility] Albumin 3.2(L) 3.5 - 5.0 g/dL [facility] Alk phos 300(H) 40 - 130 Units/L [facility] ALT 55 7 - 55 Units/L [facility] AST 90(H) 10 - 50 Units/L [facility] Blood 06/13/2022 9:33 AM CDT 06/13/2022 10:06 AM CDT us Marcelina Lo HEEL EMERY BUFFER LAB BLOOD ORDERABLES Final Re sult [facility] Department [place] [address] * (ABNORMAL) CBC with auto differential (06/13/2022 9:33 AM CDT) Pathologist [facility] WBC 15.6(H) 3.8 - 9.9 K/cumm [facility] Hgb 7.7(L) 13.0 - 17.5 g/dL [facility] Hct 23.1(L) 38.9 - 50.3 % [facility] Plt 191 150 - 400 K/cumm [facility] MPV 10.9 9.1 - 12.3 fL [facility] RBC 2.45(L) 4.30 - 5.80 M/cumm [facility] MCV 94.3 81.3 - 96.4 fL [facility] MCH 31.4 27.1 - 33.3 pg [facility] MCHC 33.3 32.3 - 35.7 g/dL [facility] RDW CV 13.6 11.1 - 14.9 % [facility] RDW SD 46.7 35.7 - 48.1 fL [facility] NRBC abs 0.05(H) 0.00 - 0.01 K/cumm [facility] Blood 06/13/2022 9:33 AM CDT 06/13/2022 10:06 AM CDT us Marcelina Lo HEEL EMERY BUFFER LAB BLOOD ORDERABLES Final Re sult Performing Organization Address City/[facility]/ZIP Co de Phone Number [facility] Department [place] [address] * (ABNORMAL) POCT glucose (06/13/2022 4:40 AM CDT) Glucose, POC 280(H) 70 - 199 mg/dL [facility] Blood 06/13/2022 4:40 AM CDT 06/13/2022 4:40 AM CDT Catherine Adams MD LAB POCT ORDERABLES - DEVIC E Final Result Performing Organization Address City/[facility]/ZIP Co de Phone Number [facility] Department [place] [address] * (ABNORMAL) Blood gas, arterial (06/13/2022 2:26 AM CDT) pH, Art 7.35 7.35 - 7.45 [facility] PCO2, Arterial 42 35 - 45 mmHg [facility] PO2, Arterial 78(L) 83 - 108 mmHg [facility] HCO3 Art (Calculated) 24 20 - 30 mmol/L [facility] BE, art -3 mmol/L [facility] Comment: Interpretive Data No Reference Range Established Current Interpretive Data was last revised on 2017 O2 Sat Art (Measured) 94 90 - 95 % [facility] Blood 06/13/2022 2:26 AM CDT 06/13/2022 2:58 AM CDT Marcelina Lo HEEL EMERY BUFFER LAB BLOOD ORDERABLES Final Re sult [facility] [place] [address] * (ABNORMAL) Blood gas, arterial (06/13/2022 1:11 AM CDT) pH, Art 7.35 7.35 - 7.45 [facility] PCO2, Arterial 44 35 - 45 mmHg [facility] PO2, Arterial 72(L) 83 - 108 mmHg [facility] HCO3 Art (Calculated) 25 20 - 30 mmol/L [facility] BE, art -1 mmol/L [facility] Comment: Interpretive Data No Reference Range Established Current Interpretive Data was last revised on 2017 O2 Sat Art (Measured) 94 90 - 95 % [facility] Blood 06/13/2022 1:11 AM CDT 06/13/2022 1:30 AM CDT Marcelina Lo HEEL EMERY BUFFER LAB BLOOD ORDERABLES Final Re sult Performing Organization Address City/[facility]/ZIP Co de Phone Number [facility] [place] [address] * Potassium, whole blood (06/13/2022 1:11 AM CDT) Potassium, bld 4.8 3.3 - 4.9 mmol/L [facility] Blood 06/13/2022 1:11 AM CDT 06/13/2022 1:30 AM CDT Catherine Adams MD LAB BLOOD ORDERABLES Final Result [facility] [place] [address] * POCT glucose (06/12/2022 11:26 PM CDT) [facility] Glucose, POC 123 70 - 199 mg/dL [facility] Blood 06/12/2022 11:2 6 PM CDT 06/12/2022 11:26 PM CDT Catherine Adams MD LAB POCT ORDERABLES - DEVIC E Final Result Performing Organization Address [facility] [place] [address] * Lactate, whole blood (06/12/2022 8:55 PM CDT) [facility] Lactate, bld 1.2 0.7 - 2.0 mmol/L [facility] Blood 06/12/2022 8:55 PM CDT 06/12/2022 9:59 PM CDT Jeffrey Green MD LAB BLOOD ORDERABLES Final Result Performing Organization Address [facility] [place] [address] * (ABNORMAL) eGFR (06/12/2022 8:47 PM CDT) [facility] eGFR 35(L) 90 - 130 mL/min/1. 73 m2 [facility] Comment: Interpretive Data Reference Interval Normal [...] BLOOD ORDERABLES Final Result Performing Organization Address City/State/[facility] Co de Phone Number [facility] Department [place] [address] * (ABNORMAL) Differential, auto (06/12/2022 8:47 PM CDT) Neutrophil abs 9.5(H) 1.7 - 6.5 K/cumm [facility] Imm gran abs 1.9(H) 0.0 - 0.1 K/cumm [facility] Lymphocyte abs 1.8 0.8 - 3.3 K/cumm [facility] Monocyte abs 1.0(H) 0.2 - 0.8 K/cumm [facility] Eosinophil abs 0.3 0.0 - 0.5 K/cumm [facility] Basophil abs 0.0 0.0 - 0.1 K/cumm [facility] Neutrophil pct 65.3 % [facility] Comment: Confirmed by smear review Interpretive Data Percent cell count reference ranges are not reported, since discordance with absolute values may lead to misinterpretation of CBC data. Current Interpretive Data was last revised on 2017. Imm gran pct 13.1 % [facility] Comment: Interpretive Data Percent cell count reference ranges are not reported, since discordance with absolute values may lead to misinterpretation of CBC data. Current Interpretive Data was last revised on 2017. Lymphocyte pct 12.0 % [facility] Comment: Interpretive Data Percent cell count reference ranges are not reported, since discordance with absolute values may lead to misinterpretation of CBC data. Current Interpretive Data was last revised on 2017. Monocyte pct 7.0 % [facility] Comment: Interpretive Data Percent cell count reference ranges are not reported, since discordance with absolute values may lead to misinterpretation of CBC data. Current Interpretive Data was last revised on 2017. Eosinophil pct 2.3 % [facility] Comment: Interpretive Data Percent cell count reference ranges are not reported, since discordance with absolute values may lead to misinterpretation of CBC data. Current Interpretive Data was last revised on 2017. Basophil pct 0.3 % [facility] Comment: Interpretive Data Percent cell count reference ranges are not reported, since discordance with absolute values may lead to misinterpretation of CBC data. Current Interpretive Data was last revised on 2017. Blood 06/12/2022 8:47 PM CDT 06/12/2022 10:10 PM CDT Catherine Adams MD LAB BLOOD ORDERABLES Final Result [facility] [place] [address] * (ABNORMAL) Magnesium (06/12/2022 8:47 PM CDT) Magnesium 2.7(H) 1.4 - 2.5 mg/dL [facility] Blood 06/12/2022 8:47 PM CDT 06/12/2022 10:04 PM CDT Catherine Adams MD LAB BLOOD ORDERABLES Final Result Performing Organization Address City/[facility]/ZIP Co de Phone Number [facility] Department [place] [address] * (ABNORMAL) Comprehensive metabolic panel (06/12/2022 8:47 PM CDT) Sodium 134(L) 135 - 145 mmol/L [facility] Potassium, pl 5.1(H) 3.3 - 4.9 mmol/L [facility] Comment:Hemolyzed; Potassium value may be falsely elevated by as much as 0.6-1.0 mmol/L. Suggest redraw and reanalysis. Chloride 101 97 - 110 mmol/L [facility] CO2 24 22 - 32 mmol/L [facility] Anion gap 9 2 - 15 mmol/L [facility] BUN 19 8 - 25 mg/dL [facility] Creatinine 2.22(H) 0.80 - 1.30 mg/dL [facility] Glucose 101 70 - 199 mg/dL [facility] Comment: Interpretive Data Fasting glucose >/= [...] 2017. Calcium 8.7 8.5 - 10.3 mg/dL [facility] Bilirubin, total 0.8 0.1 - 1.2 mg/dL [facility] Protein, pl 6.5 6.5 - 8.5 g/dL [facility] Albumin 2.7(L) 3.5 - 5.0 g/dL [facility] Alk phos 300(H) 40 - 130 Units/L [facility] ALT 57(H) 7 - 55 Units/L [facility] AST 110(H) 10 - 50 Units/L [facility] Comment:Hemolyzed; result ma y be falsely elevated Blood 06/12/2022 8:47 PM CDT 06/12/2022 10:04 PM CDT us Catherine Adams MD LAB BLOOD ORDERABLES Final Result Performing Organization Address [facility] Co de Phone Number [facility] [place] [address] * (ABNORMAL) Blood gas, arterial (06/12/2022 8:47 PM CDT) pH, Art 7.36 7.35 - 7.45 [facility] PCO2, Arterial 47(H) 35 - 45 mmHg [facility] PO2, Arterial 84 83 - 108 mmHg [facility] HCO3 Art (Calculated) 27 20 - 30 mmol/L [facility] BE, art 1 mmol/L [facility] Comment: Interpretive Data No Reference Range Established Current Interpretive Data was last revised on 2017 O2 Sat Art (Measured) 96(H) 90 - 95 % [facility] Blood 06/12/2022 8:47 PM CDT 06/12/2022 9:59 PM CDT us Marcelina Lo HEEL EMERY BUFFER LAB BLOOD ORDERABLES Final Re sult Performing Organization Address [facility] Co de Phone Number [facility] [place] [address] * (ABNORMAL) aPTT (06/12/2022 8:47 PM CDT) aPTT 78(H) 27 - 37 sec [facility] Comment: Interpretive Data Therapeutic heparin range: 60.0 - 94.0 seconds. Based on correlation with therapeutic heparin activity range of 0.3-0.7 Units/mL. Current interpretive data was last revised on 2020. Blood 06/12/2022 8:47 PM CDT 06/12/2022 10:12 PM CDT Narrative [facility] - 06/12/2022 10:40 PM CDT Check aPTT 6 hours after the start of Heparin infusion and 6 hours after any change in Heparin rate. (Target aPTT 61-80 seconds). Call Nephrology if outside range. Catherine Adams MD LAB BLOOD ORDERABLES Final Result Performing Organization Address [facility] Co de Phone Number [facility] Department [place] [address] * (ABNORMAL) Triglycerides (06/12/2022 8:47 PM CDT) Triglycerides 248(H) <=149 mg/dL [facility] Comment: Interpretive Data Ages < or [...] PM CDT 06/12/2022 10:04 PM CDT Narrative [facility] - 06/12/2022 10:44 PM CDT While on propofol infusion. Catherine Adams MD LAB BLOOD ORDERABLES Final Result Performing Organization Address [facility] Co de Phone Number [facility] Department [place] [address] * Phosphorus (06/12/2022 8:47 PM CDT) Pathologist [facility] Phosphorus, pl 3.5 2.3 - 4.5 mg/dL [facility] Blood 06/12/2022 8:47 PM CDT 06/12/2022 10:04 PM CDT Marcelina Lo HEEL EMERY BUFFER LAB BLOOD ORDERABLES Final Re sult Performing Organization Address City/[facility]/ZIP Co de Phone Number [facility] [place] [address] * Beta-hydroxybutyrate (06/12/2022 8:47 PM CDT) [facility] Beta-Hydroxybut yrate 0.2 0.0 - 0.5 mmol/L [facility] Blood 06/12/2022 8:47 PM CDT 06/12/2022 10:00 PM CDT Marcelina Lo HEEL EMERY BUFFER LAB BLOOD ORDERABLES Edited R esult - Final Performing Organization Address [facility] Co de Phone Number [facility] [place] [address] * Lipase (06/12/2022 8:47 PM CDT) [facility] Lipase 16 10 - 99 Units/L [facility] Blood 06/12/2022 8:47 PM CDT 06/12/2022 10:04 PM CDT Marcelina Lo HEEL EMERY BUFFER LAB BLOOD ORDERABLES Final Re sult Performing Organization Address [facility] Co de Phone Number [facility] [place] [address] * (ABNORMAL) CBC with auto differential (06/12/2022 8:47 PM CDT) [facility] WBC 14.6(H) 3.8 - 9.9 K/cumm [facility] Hgb 8.1(L) 13.0 - 17.5 g/dL [facility] Hct 24.7(L) 38.9 - 50.3 % [facility] Plt 207 150 - 400 K/cumm [facility] MPV 11.0 9.1 - 12.3 fL [facility] RBC 2.61(L) 4.30 - 5.80 M/cumm [facility] MCV 94.6 81.3 - 96.4 fL [facility] MCH 31.0 27.1 - 33.3 pg [facility] MCHC 32.8 32.3 - 35.7 g/dL [facility] RDW CV 13.4 11.1 - 14.9 % [facility] RDW SD 45.9 35.7 - 48.1 fL [facility] NRBC abs 0.03(H) 0.00 - 0.01 K/cumm [facility] Blood 06/12/2022 8:47 PM CDT 06/12/2022 10:10 PM CDT us Marcelina Lo HEEL EMERY BUFFER LAB BLOOD ORDERABLES Final Re sult Performing Organization Address City/[facility]/ZIP Co de Phone Number [facility] Department [place] [address] * POCT glucose (06/12/2022 8:44 PM CDT) Glucose, POC 99 70 - 199 mg/dL [facility] Blood 06/12/2022 8:44 PM CDT 06/12/2022 8:44 PM CDT us Catherine Adams MD LAB POCT ORDERABLES - DEVIC E Final Result [facility] [place] [address] * POCT glucose (06/12/2022 4:01 PM CDT) Glucose, POC 110 70 - 199 mg/dL [facility] Blood 06/12/2022 4:01 PM CDT 06/12/2022 4:01 PM CDT Catherine Adams MD LAB POCT ORDERABLES - DEVIC E Final Result Performing Organization Address [facility] Co de Phone Number [facility] [place] [address] * (ABNORMAL) aPTT (06/12/2022 4:01 PM CDT) Pathologist [facility] aPTT 75(H) 27 - 37 sec [facility] Comment: Interpretive Data Therapeutic heparin range: 60.0 - 94.0 seconds. Based on correlation with therapeutic heparin activity range of 0.3-0.7 Units/mL. Current interpretive data was last revised on 2020. Blood 06/12/2022 4:01 PM CDT 06/12/2022 4:27 PM CDT Narrative [facility] - 06/12/2022 4:48 PM CDT Check aPTT 6 hours after the start of Heparin infusion and 6 hours after any change in Heparin rate. (Target aPTT 61-80 seconds). Call Nephrology if outside range. Catherine Adams MD LAB BLOOD ORDERABLES Final Result Performing Organization Address [facility] de Phone Number [facility] [place] [address] * Blood gas, arterial (06/12/2022 4:01 PM CDT) pH, Art 7.42 7.35 - 7.45 [facility] PCO2, Arterial 41 35 - 45 mmHg [facility] PO2, Arterial 94 83 - 108 mmHg [facility] HCO3 Art (Calculated) 27 20 - 30 mmol/L [facility] BE, art 2 mmol/L [facility] Comment: Interpretive Data No Reference Range Established Current Interpretive Data was last revised on 2017 Blood 06/12/2022 4:01 PM CDT 06/12/2022 4:16 PM CDT Marcelina Lo HEEL EMERY BUFFER LAB BLOOD ORDERABLES Final Re sult Performing Organization Address [facility] Co de Phone Number [facility] Department [place] [address] * Aerobic culture and gram stain Tracheal aspirate Tracheal (06/12/2022 2:31 PM CDT) Direct Specimen Exam Stain: Rare polymorphonuclear leukocytes seen. Few squamous epithelial cells seen. Rare mixed bacterial stone seen on Gram stain. [facility] Report Final Report: Insignificant growth based on current clinical standards. [facility] Tracheal aspirate (Tracheal) 06/12/2022 2:31 PM CDT 06/12/2022 3:47 PM CDT Narrative [facility] - 06/14/2022 11:49 AM CDT Testing performed by [facility] ([phone]) Specimens submitted from normally sterile body sites [...] GENERAL ORDERABLES Final Result Performing Organization Address [facility] Co de Phone Number [facility] Department [place] [address] * XR Chest 1 View (06/12/2022 1:10 [...] CDT) pH, Art 7.41 7.35 - 7.45 [facility] PCO2, Arterial 38 35 - 45 mmHg [facility] PO2, Arterial 135(H) 83 - 108 mmHg [facility] HCO3 Art (Calculated) 25 20 - 30 mmol/L [facility] BE, art 0 mmol/L [facility] Comment: Interpretive Data No Reference Range Established Current Interpretive Data was last revised on 2017 O2 Sat Art (Measured) 97(H) 90 - 95 % [facility] Blood 06/12/2022 12:5 6 PM CDT 06/12/2022 1:02 PM CDT Marcelina Lo HEEL EMERY BUFFER LAB BLOOD ORDERABLES Final Re sult Performing Organization Address [facility] Clinic de Phone Number [facility] Department [place] [address] * (ABNORMAL) Blood gas, arterial (06/12/2022 11:37 AM CDT) pH, Art 7.41 7.35 - 7.45 [facility] PCO2, Arterial 40 35 - 45 mmHg [facility] PO2, Arterial 82(L) 83 - 108 mmHg [facility] HCO3 Art (Calculated) 26 20 - 30 mmol/L [facility] BE, art 0 mmol/L [facility] Comment: Interpretive Data No Reference Range Established Current Interpretive Data was last revised on 2017 O2 Sat Art (Measured) 96(H) 90 - 95 % [facility] Blood 06/12/2022 11:3 7 AM CDT 06/12/2022 11:43 AM CDT us Marcelina Lo HEEL EMERY BUFFER LAB BLOOD ORDERABLES Final Re sult Performing Organization Address [facility] de Phone Number [facility] Department [place] [address] * POCT glucose (06/12/2022 11:36 AM CDT) Glucose, POC 161 70 - 199 mg/dL [facility] Blood 06/12/2022 11:3 6 AM CDT 06/12/2022 11:36 AM CDT Catherine Adams MD LAB POCT ORDERABLES - DEVIC E Final Result Performing Organization Address [facility] de Phone Number [facility] Department [place] [address] * (ABNORMAL) Blood gas, arterial (06/12/2022 9:53 AM CDT) Pathologist [facility] pH, Art 7.42 7.35 - 7.45 [facility] PCO2, Arterial 36 35 - 45 mmHg [facility] PO2, Arterial 106 83 - 108 mmHg [facility] HCO3 Art (Calculated) 25 20 - 30 mmol/L [facility] BE, art 0 mmol/L [facility] Comment: Interpretive Data No Reference Range Established Current Interpretive Data was last revised on 2017 O2 Sat Art (Measured) 98(H) 90 - 95 % [facility] Blood 06/12/2022 9:53 AM CDT 06/12/2022 10:02 AM CDT us Marcelina Lo HEEL EMERY BUFFER LAB BLOOD ORDERABLES Final Re sult Performing Organization Address [facility] de Phone Number [facility] Department [place] [address] * (ABNORMAL) Manual Differential (06/12/2022 8:02 AM CDT) [facility] Differential Manual [facility] Cells Counted 116 [facility] Neutrophil abs 9.1(H) 1.7 - 6.5 K/cumm [facility] Imm gran abs 0.8(H) 0.0 - 0.1 K/cumm [facility] Lymphocyte abs 1.9 0.8 - 3.3 K/cumm [facility] Monocyte abs 0.3 0.2 - 0.8 K/cumm [facility] Eosinophil abs 0.4 0.0 - 0.5 K/cumm [facility] Neutrophil pct 72.5 % [facility] Comment: Interpretive Data Percent cell count reference ranges are not reported, since discordance with absolute values may lead to misinterpretation of CBC data. Current Interpretive Data was last revised on 2017. Lymphocyte pct 15.5 % [facility] Comment: Interpretive Data Percent cell count reference ranges are not reported, since discordance with absolute values may lead to misinterpretation of CBC data. Current Interpretive Data was last revised on 2017. Monocyte pct 2.6 % [facility] Comment: Interpretive Data Percent cell count reference ranges are not reported, since discordance with absolute values may lead to misinterpretation of CBC data. Current Interpretive Data was last revised on 2017. Eosinophil pct 3.4 % [facility] Comment: Interpretive Data Percent cell count reference ranges are not reported, since discordance with absolute values may lead to misinterpretation of CBC data. Current Interpretive Data was last revised on 2017. Metamyelocyte pct 2.6 % [facility] Myelocyte pct 3.4 % [facility] Blood 06/12/2022 8:02 AM CDT 06/12/2022 8:32 AM CDT Catherine Adams MD LAB BLOOD ORDERABLES Final Result Performing Organization Address City/State/[facility] Co de Phone Number [facility] Department [place] [address] * (ABNORMAL) eGFR (06/12/2022 8:02 AM CDT) eGFR 31(L) 90 - 130 mL/min/1. 73 m2 [facility] Comment: Interpretive Data Reference Interval Normal [...] BLOOD ORDERABLES Final Result Performing Organization Address [facility] Co de Phone Number [facility] Department [place] [address] * (ABNORMAL) aPTT (06/12/2022 8:02 AM CDT) aPTT 70(H) 27 - 37 sec [facility] Comment: Interpretive Data Therapeutic heparin range: 60.0 - 94.0 seconds. Based on correlation with therapeutic heparin activity range of 0.3-0.7 Units/mL. Current interpretive data was last revised on 2020. Blood 06/12/2022 8:02 AM CDT 06/12/2022 8:15 AM CDT Narrative [facility] - 06/12/2022 8:43 AM CDT Check aPTT 6 hours after the start of Heparin infusion and 6 hours after any change in Heparin rate. (Target aPTT 61-80 seconds). Call Nephrology if outside range. Catherine Adams MD LAB BLOOD ORDERABLES Final Result Performing Organization Address [facility] Co de Phone Number [facility] Department [place] [address] * (ABNORMAL) Blood gas, arterial (06/12/2022 8:02 AM CDT) Pathologist [facility] pH, Art 7.47(H) 7.35 - 7.45 [facility] PCO2, Arterial 34(L) 35 - 45 mmHg [facility] PO2, Arterial 71(L) 83 - 108 mmHg [facility] HCO3 Art (Calculated) 25 20 - 30 mmol/L [facility] BE, art 1 mmol/L [facility] Comment: Interpretive Data No Reference Range Established Current Interpretive Data was last revised on 2017 O2 Sat Art (Measured) 95 90 - 95 % [facility] Blood 06/12/2022 8:02 AM CDT 06/12/2022 8:13 AM CDT Marcelina Lo HEEL EMERY BUFFER LAB BLOOD ORDERABLES Final Re sult Performing Organization Address [facility]/ZIP Co de Phone Number [facility] Department [place] [address] * Magnesium (06/12/2022 8:02 AM CDT) [facility] Magnesium 2.5 1.4 - 2.5 mg/dL [facility] Blood 06/12/2022 8:02 AM CDT 06/12/2022 8:28 AM CDT Marcelina Lo HEEL EMERY BUFFER LAB BLOOD ORDERABLES Final Re sult Performing Organization Address City/[facility]/ZIP Co de Phone Number [facility] Department [place] [address] * (ABNORMAL) Comprehensive metabolic panel (06/12/2022 8:02 AM CDT) [facility] Sodium 135 135 - 145 mmol/L [facility] Potassium, pl 4.4 3.3 - 4.9 mmol/L [facility] Chloride 101 97 - 110 mmol/L [facility] CO2 26 22 - 32 mmol/L [facility] Anion gap 8 2 - 15 mmol/L [facility] BUN 23 8 - 25 mg/dL [facility] Creatinine 2.45(H) 0.80 - 1.30 mg/dL [facility] Glucose 157 70 - 199 mg/dL [facility] Comment: Interpretive Data Fasting glucose >/= [...] 2017. Calcium 8.4(L) 8.5 - 10.3 mg/dL [facility] Bilirubin, total 0.7 0.1 - 1.2 mg/dL [facility] Protein, pl 5.8(L) 6.5 - 8.5 g/dL [facility] Albumin 2.6(L) 3.5 - 5.0 g/dL [facility] Alk phos 248(H) 40 - 130 Units/L [facility] ALT 49 7 - 55 Units/L [facility] AST 95(H) 10 - 50 Units/L [facility] Blood 06/12/2022 8:02 AM CDT 06/12/2022 8:28 AM CDT us Marcelina Lo HEEL EMERY BUFFER LAB BLOOD ORDERABLES Final Re sult [facility] Department [place] [address] * (ABNORMAL) CBC with auto differential (06/12/2022 8:02 AM CDT) Pathologist [facility] WBC 12.5(H) 3.8 - 9.9 K/cumm [facility] Hgb 7.5(L) 13.0 - 17.5 g/dL [facility] Hct 22.3(L) 38.9 - 50.3 % [facility] Plt 174 150 - 400 K/cumm [facility] MPV 11.0 9.1 - 12.3 fL [facility] RBC 2.36(L) 4.30 - 5.80 M/cumm [facility] MCV 94.5 81.3 - 96.4 fL [facility] MCH 31.8 27.1 - 33.3 pg [facility] MCHC 33.6 32.3 - 35.7 g/dL [facility] RDW CV 13.5 11.1 - 14.9 % [facility] RDW SD 45.5 35.7 - 48.1 fL [facility] NRBC abs 0.02(H) 0.00 - 0.01 K/cumm [facility] Blood 06/12/2022 8:02 AM CDT 06/12/2022 8:27 AM CDT us Marcelina Lo NP LAB BLOOD ORDERABLES Final Re sult Performing Organization Address City/[facility] Co de Phone Number [facility] Department [place] [address] * POCT glucose (06/12/2022 8:01 AM CDT) Glucose, POC 143 70 - 199 mg/dL [facility] Blood 06/12/2022 8:01 AM CDT 06/12/2022 8:01 AM CDT us Catherine Adams MD LAB POCT ORDERABLES - DEVIC E Final Result Performing Organization Address City/[facility]/ZIP Co de Phone Number [facility] Department [place] [address] * (ABNORMAL) Blood gas, arterial (06/12/2022 6:21 AM CDT) pH, Art 7.41 7.35 - 7.45 [facility] PCO2, Arterial 40 35 - 45 mmHg [facility] PO2, Arterial 86 83 - 108 mmHg [facility] HCO3 Art (Calculated) 26 20 - 30 mmol/L [facility] BE, art 1 mmol/L [facility] Comment: Interpretive Data No Reference Range Established Current Interpretive Data was last revised on 2017 O2 Sat Art (Measured) 96(H) 90 - 95 % [facility] Blood 06/12/2022 6:21 AM CDT 06/12/2022 6:29 AM CDT us Catherine Adams MD LAB BLOOD ORDERABLES Final Result Performing Organization Address City/[facility] Co de Phone Number [facility] [place] [address] * POCT glucose (06/12/2022 4:57 AM CDT) Glucose, POC 163 70 - 199 mg/dL [facility] Blood 06/12/2022 4:57 AM CDT 06/12/2022 4:57 AM CDT Catherine Adams MD LAB POCT ORDERABLES - DEVIC E Final Result Performing Organization Address [facility] de Phone Number [facility] [place] [address] * (ABNORMAL) aPTT (06/12/2022 1:52 AM CDT) aPTT 52(H) 27 - 37 sec [facility] Comment: Interpretive Data Therapeutic heparin range: 60.0 - 94.0 seconds. Based on correlation with therapeutic heparin activity range of 0.3-0.7 Units/mL. Current interpretive data was last revised on 2020. Blood 06/12/2022 1:52 AM CDT 06/12/2022 2:15 AM CDT [facility] 06/12/[facility]22 2:39 AM CDT Check aPTT 6 hours after the start of Heparin infusion and 6 hours after any change in Heparin rate. (Target aPTT 61-80 seconds). Call Nephrology if outside range. us Catherine Adams MD LAB BLOOD ORDERABLES Final Result [facility] [place] [address] * (ABNORMAL) POCT glucose (06/11/2022 11:32 PM CDT) [facility] Glucose, POC 206(H) 70 - 199 mg/dL [facility] Blood 06/11/2022 11:3 2 PM CDT 06/11/2022 11:32 PM CDT Catherine Adams MD LAB POCT ORDERABLES - DEVIC E Final Result Performing Organization Address City/[facility] Co de Phone Number [facility] [place] [address] * (ABNORMAL) Manual Differential (06/11/2022 11:25 PM CDT) [facility] Differential Manual [facility] Cells Counted 119 [facility] Neutrophil abs 10.8(H) 1.7 - 6.5 K/cumm [facility] Imm gran abs 0.6(H) 0.0 - 0.1 K/cumm [facility] Lymphocyte abs 1.4 0.8 - 3.3 K/cumm [facility] Monocyte abs 0.6 0.2 - 0.8 K/cumm [facility] Eosinophil abs 0.2 0.0 - 0.5 K/cumm [facility] Neutrophil pct 79.9 % [facility] Comment: Interpretive Data Percent cell count reference ranges are not reported, since discordance with absolute values may lead to misinterpretation of CBC data. Current Interpretive Data was last revised on 2017. Lymphocyte pct 10.1 % [facility] Comment: Interpretive Data Percent cell count reference ranges are not reported, since discordance with absolute values may lead to misinterpretation of CBC data. Current Interpretive Data was last revised on 2017. Monocyte pct 4.2 % [facility] Comment: Interpretive Data Percent cell count reference ranges are not reported, since discordance with absolute values may lead to misinterpretation of CBC data. Current Interpretive Data was last revised on 2017. Eosinophil pct 1.7 % [facility] Comment: Interpretive Data Percent cell count reference ranges are not reported, since discordance with absolute values may lead to misinterpretation of CBC data. Current Interpretive Data was last revised on 2017. Metamyelocyte pct 0.8 % [facility] Myelocyte pct 2.5 % [facility] Promyelocyte pct 0.8 % [facility] Blood 06/11/2022 11:2 5 PM CDT 06/11/2022 11:39 PM CDT us Jeffrey Green MD LAB BLOOD ORDERABLES Final Result [facility] Department [place] [address] * (ABNORMAL) CBC with auto differential (06/11/2022 11:25 PM CDT) WBC 13.5(H) 3.8 - 9.9 K/cumm [facility] Hgb 7.9(L) 13.0 - 17.5 g/dL [facility] Hct 23.7(L) 38.9 - 50.3 % [facility] Plt 188 150 - 400 K/cumm [facility] MPV 10.7 9.1 - 12.3 fL [facility] RBC 2.55(L) 4.30 - 5.80 M/cumm [facility] MCV 92.9 81.3 - 96.4 fL [facility] MCH 31.0 27.1 - 33.3 pg [facility] MCHC 33.3 32.3 - 35.7 g/dL [facility] RDW CV 13.3 11.1 - 14.9 % [facility] RDW SD 45.1 35.7 - 48.1 fL [facility] NRBC abs 0.02(H) 0.00 - 0.01 K/cumm [facility] Blood 06/11/2022 11:2 5 PM CDT 06/11/2022 11:35 PM CDT us Jeffrey Green MD LAB BLOOD ORDERABLES Final Result Performing Organization Address [facility] Co de Phone Number [facility] Department [place] [address] * (ABNORMAL) Blood gas, arterial (06/11/2022 11:25 [...] (Measured) 97(H) 90 - 95 % [facility] Blood 06/11/2022 11:2 5 PM CDT 06/11/2022 11:31 PM CDT us Marcelina Lo NP LAB BLOOD ORDERABLES Final Re sult Performing Organization Address [facility] Co de Phone Number [facility] Department [place] [address] * (ABNORMAL) Blood gas, arterial (06/11/2022 8:17 [...] 06/11/2022 8:23 PM CDT us Marcelina Lo HEEL EMERY BUFFER LAB BLOOD ORDERABLES Final Re sult Performing Organization Address City/[facility] Co de Phone Number [facility] [place] [address] * Lactate, whole blood (06/11/2022 8:17 PM CDT) Lactate, bld 0.8 0.7 - 2.0 mmol/L [facility] Blood 06/11/2022 8:17 PM CDT 06/11/2022 8:23 PM CDT Marcelina Lo HEEL EMERY BUFFER LAB BLOOD ORDERABLES Final Re sult Performing Organization Address [facility] de Phone Number [facility] [place] [address] * (ABNORMAL) eGFR (06/11/2022 8:12 PM CDT) Pathologist [facility] eGFR 24(L) 90 - 130 mL/min/1. 73 m2 [facility] Comment: Interpretive Data Reference Interval Normal [...] Adams MD LAB BLOOD ORDERABLES Final Result [facility] [place] [address] * Magnesium (06/11/2022 8:12 PM CDT) Pathologist [facility] Magnesium 2.5 1.4 - 2.5 mg/dL [facility] Blood 06/11/2022 8:12 PM CDT 06/11/2022 8:23 PM CDT Catherine Adams MD LAB BLOOD ORDERABLES Final Result Performing Organization Address City/[facility]/ZIP Co de Phone Number [facility] [place] [address] * (ABNORMAL) Comprehensive metabolic panel (06/11/2022 8:12 PM CDT) Pathologist [facility] Sodium 135 135 - 145 mmol/L [facility] Potassium, pl 4.7 3.3 - 4.9 mmol/L [facility] Chloride 101 97 - 110 mmol/L [facility] CO2 23 22 - 32 mmol/L [facility] Anion gap 11 2 - 15 mmol/L [facility] BUN 28(H) 8 - 25 mg/dL [facility] Creatinine 3.01(H) 0.80 - 1.30 mg/dL [facility] Glucose 185 70 - 199 mg/dL [facility] Comment: Interpretive Data Fasting glucose >/= [...] 2017. Calcium 8.1(L) 8.5 - 10.3 mg/dL [facility] Bilirubin, total 0.9 0.1 - 1.2 mg/dL [facility] Protein, pl 5.5(L) 6.5 - 8.5 g/dL [facility] Albumin 2.3(L) 3.5 - 5.0 g/dL [facility] Alk phos 211(H) 40 - 130 Units/L [facility] ALT 45 7 - 55 Units/L [facility] AST 95(H) 10 - 50 Units/L [facility] Blood 06/11/2022 8:12 PM CDT 06/11/2022 8:23 PM CDT Catherine Adams MD LAB BLOOD ORDERABLES Final Result [facility] Department [place] [address] * (ABNORMAL) Triglycerides (06/11/2022 8:12 PM CDT) Pathologist [facility] Triglycerides 345(H) <=149 mg/dL [facility] Comment: Interpretive Data Ages < or [...] PM CDT 06/11/2022 8:23 PM CDT Narrative [facility] - 06/11/2022 8:53 PM CDT While on propofol infusion. us Catherine Adams MD LAB BLOOD ORDERABLES Final Result Performing Organization Address [facility] Co de Phone Number [facility] Department [place] [address] * Phosphorus (06/11/2022 8:12 PM CDT) Phosphorus, pl 4.4 2.3 - 4.5 mg/dL [facility] Blood 06/11/2022 8:12 PM CDT 06/11/2022 8:23 PM CDT us Marcelina Lo NP LAB BLOOD ORDERABLES Final Re sult Performing Organization Address [facility]/ZIP Co de Phone Number [facility] Department [place] [address] * Beta-hydroxybutyrate (06/11/2022 8:12 PM CDT) Beta-Hydroxybut yrate 0.3 0.0 - 0.5 mmol/L [facility] Blood 06/11/2022 8:12 PM CDT 06/11/2022 8:23 PM CDT Marcelina Lo HEEL EMERY BUFFER LAB BLOOD ORDERABLES Edited R esult - Final Performing Organization Address [facility] Co de Phone Number [facility] [place] [address] * Lipase (06/11/2022 8:12 PM CDT) Lipase 15 10 - 99 Units/L [facility] Blood 06/11/2022 8:12 PM CDT 06/11/2022 8:23 PM CDT Marcelina Lo HEEL EMERY BUFFER LAB BLOOD ORDERABLES Final Re sult Performing Organization Address [facility] de Phone Number [facility] [place] [address] * POCT glucose (06/11/2022 8:07 PM CDT) Glucose, POC 169 70 - 199 mg/dL [facility] Blood 06/11/2022 8:07 PM CDT 06/11/2022 8:07 PM CDT Catherine Adams MD LAB POCT ORDERABLES - DEVIC E Final Result Performing Organization Address [facility] de Phone Number [facility] [place] [address] * XR Chest 1 View (06/11/2022 4:07 PM CDT) Anatomical Region Laterality Modality Body, Chest N/A Computed Radiogr aphy 06/11/2022 5:24 PM CDT Impressions 06/11/2022 5:24 PM CDT Comparison made to examination of 06/11/2022 at 0543 hours Tip of the endotracheal tube projects approximately 5.5 cm above the boni. ??Nasogastric tube extends below the diaphragm with the tip excluded from the [id number]. ??Left internal jugular catheter projects at superior [...] diaphragm with the tip excluded from the [id number]. Left internal jugular catheter projects at superior [...] Potassium, bld 4.5 3.3 - 4.9 mmol/L [facility] Blood 06/11/2022 3:21 PM CDT 06/11/2022 3:29 PM CDT Marcelina Lo NP LAB BLOOD ORDERABLES Final Re sult [facility] Department [place] [address] * Lactate, whole blood (06/11/2022 3:21 PM CDT) Lactate, bld 0.9 0.7 - 2.0 mmol/L [facility] Blood 06/11/2022 3:21 PM CDT 06/11/2022 3:29 PM CDT Marcelina Lo HEEL EMERY BUFFER LAB BLOOD ORDERABLES Final Re sult Performing Organization Address [facility] de Phone Number [facility] Department [place] [address] * (ABNORMAL) Blood gas, arterial (06/11/2022 3:21 PM CDT) pH, Art 7.39 7.35 - 7.45 [facility] PCO2, Arterial 39 35 - 45 mmHg [facility] PO2, Arterial 92 83 - 108 mmHg [facility] HCO3 Art (Calculated) 24 20 - 30 mmol/L [facility] BE, art -1 mmol/L [facility] Comment: Interpretive Data No Reference Range Established Current Interpretive Data was last revised on 2017 O2 Sat Art (Measured) 96(H) 90 - 95 % [facility] Blood 06/11/2022 3:21 PM CDT 06/11/2022 3:29 PM CDT Marcelina Lo HEEL EMERY BUFFER LAB BLOOD ORDERABLES Final Re sult Performing Organization Address [facility] de Phone Number [facility] Department [place] [address] * aPTT (06/11/2022 3:21 PM CDT) Pathologist [facility] aPTT 30 27 - 37 sec [facility] Comment: Interpretive Data Therapeutic heparin range: 60.0 - 94.0 seconds. Based on correlation with therapeutic heparin activity range of 0.3-0.7 Units/mL. Current interpretive data was last revised on 2020. Blood 06/11/2022 3:21 PM CDT 06/11/2022 3:30 PM CDT Catherine Adams MD LAB BLOOD ORDERABLES Final Result Performing Organization Address City/[facility]/ZIP Co de Phone Number [facility] Department [place] [address] * Protime-INR (06/11/2022 3:21 PM CDT) [facility] PT 10.7 9.2 - 13.5 sec [facility] INR 1.0 0.9 - 1.2 [facility] Comment: Interpretive data Oral anticoagulant therapeutic ranges: Venous thromboembolism prophylaxis or treatment: 2.0-3.0 CARDIOLOGY Standard range: 2.0-3.0 High-intensity range: 2.5-3.5 Refer to indication-specific guidelines for appropriate target ranges for prosthetic heart valve replacement. Current interpretive data was last revised on 2019. Blood 06/11/2022 3:21 PM CDT 06/11/2022 3:30 PM CDT Catherine Adams MD LAB BLOOD ORDERABLES Final Result Performing Organization Address [facility] de Phone Number [facility] Department [place] [address] * (ABNORMAL) CBC without differential (06/11/2022 3:21 PM CDT) [facility] WBC 10.7(H) 3.8 - 9.9 K/cumm [facility] Hgb 7.6(L) 13.0 - 17.5 g/dL [facility] Hct 22.8(L) 38.9 - 50.3 % [facility] Plt 175 150 - 400 K/cumm [facility] MPV 10.7 9.1 - 12.3 fL [facility] RBC 2.45(L) 4.30 - 5.80 M/cumm [facility] MCV 93.1 81.3 - 96.4 fL [facility] MCH 31.0 27.1 - 33.3 pg [facility] MCHC 33.3 32.3 - 35.7 g/dL [facility] RDW CV 13.1 11.1 - 14.9 % [facility] RDW SD 44.3 35.7 - 48.1 fL [facility] NRBC abs 0.02(H) 0.00 - 0.01 K/cumm [facility] Blood 06/11/2022 3:21 PM CDT 06/11/2022 3:30 PM CDT Catherine Adams MD LAB BLOOD ORDERABLES Final Result Performing Organization Address [facility]/ZIP Co de Phone Number [facility] Department [place] [address] * POCT glucose (06/11/2022 3:20 PM CDT) [facility] Signature Glucose, POC 130 70 - 199 mg/dL [facility] Blood 06/11/2022 3:20 PM CDT 06/11/2022 3:20 PM CDT Catherine Adams MD LAB POCT ORDERABLES - DEVIC E Final Result Performing Organization Address [facility] de Phone Number [facility] Department [place] [address] * CT Chest Abdomen Pelvis WO Contrast [...] CDT) pH, Art 7.38 7.35 - 7.45 [facility] PCO2, Arterial 37 35 - 45 mmHg [facility] PO2, Arterial 139(H) 83 - 108 mmHg [facility] HCO3 Art (Calculated) 22 20 - 30 mmol/L [facility] BE, art -3 mmol/L [facility] Comment: Interpretive Data No Reference Range Established Current Interpretive Data was last revised on 2017 O2 Sat Art (Measured) 98(H) 90 - 95 % [facility] Blood 06/11/2022 12:1 1 PM CDT 06/11/2022 12:23 PM CDT Catherine Adams MD LAB BLOOD ORDERABLES Final Result Performing Organization Address City/[facility] Co de Phone Number [facility] Department [place] [address] * POCT glucose (06/11/2022 12:10 PM CDT) [facility] Glucose, POC 142 70 - 199 mg/dL [facility] Blood 06/11/2022 12:1 0 PM CDT 06/11/2022 12:10 PM CDT Catherine Adams MD LAB POCT ORDERABLES - DEVIC E Final Result Performing Organization Address [facility] de Phone Number [facility] Department [place] [address] * (ABNORMAL) Manual Differential (06/11/2022 8:48 AM CDT) [facility] Differential Manual [facility] Cells Counted 120 [facility] Neutrophil abs 7.3(H) 1.7 - 6.5 K/cumm [facility] Imm gran abs 1.0(H) 0.0 - 0.1 K/cumm [facility] Lymphocyte abs 1.4 0.8 - 3.3 K/cumm [facility] Monocyte abs 0.4 0.2 - 0.8 K/cumm [facility] Eosinophil abs 0.3 0.0 - 0.5 K/cumm [facility] Neutrophil pct 70.0 % [facility] Comment: Interpretive Data Percent cell count reference ranges are not reported, since discordance with absolute values may lead to misinterpretation of CBC data. Current Interpretive Data was last revised on 2017. Lymphocyte pct 13.3 % [facility] Comment: Interpretive Data Percent cell count reference ranges are not reported, since discordance with absolute values may lead to misinterpretation of CBC data. Current Interpretive Data was last revised on 2017. Monocyte pct 4.2 % [facility] Comment: Interpretive Data Percent cell count reference ranges are not reported, since discordance with absolute values may lead to misinterpretation of CBC data. Current Interpretive Data was last revised on 2017. Eosinophil pct 3.3 % [facility] Comment: Interpretive Data Percent cell count reference ranges are not reported, since discordance with absolute values may lead to misinterpretation of CBC data. Current Interpretive Data was last revised on 2017. Metamyelocyte pct 6.7 % [facility] Myelocyte pct 2.5 % [facility] Blood 06/11/2022 8:48 AM CDT 06/11/2022 9:14 AM CDT us Catherine Adams MD LAB BLOOD ORDERABLES Final Result [facility] Department [place] [address] * (ABNORMAL) eGFR (06/11/2022 8:48 AM CDT) eGFR 30(L) 90 - 130 mL/min/1. 73 m2 [facility] Comment: Interpretive Data Reference Interval Normal [...] BLOOD ORDERABLES Final Result Performing Organization Address [facility]/ZIP Co de Phone Number [facility] Department [place] [address] * Lactate, whole blood (06/11/2022 8:48 AM CDT) Lactate, bld 1.1 0.7 - 2.0 mmol/L [facility] Blood 06/11/2022 8:48 AM CDT 06/11/2022 8:55 AM CDT Marcelina Lo NP LAB BLOOD ORDERABLES Final Re sult [facility] [place] [address] * Magnesium (06/11/2022 8:48 AM CDT) Magnesium 2.5 1.4 - 2.5 mg/dL [facility] Blood 06/11/2022 8:48 AM CDT 06/11/2022 9:02 AM CDT us Marcelina Lo HEEL EMERY BUFFER LAB BLOOD ORDERABLES Final Re sult [facility] Department [place] [address] * (ABNORMAL) Comprehensive metabolic panel (06/11/2022 8:48 AM CDT) Sodium 134(L) 135 - 145 mmol/L [facility] Potassium, pl 4.8 3.3 - 4.9 mmol/L [facility] Chloride 100 97 - 110 mmol/L [facility] CO2 23 22 - 32 mmol/L [facility] Anion gap 11 2 - 15 mmol/L [facility] BUN 22 8 - 25 mg/dL [facility] Creatinine 2.53(H) 0.80 - 1.30 mg/dL [facility] Glucose 175 70 - 199 mg/dL [facility] Comment: Interpretive Data Fasting glucose >/= [...] 2017. Calcium 8.4(L) 8.5 - 10.3 mg/dL [facility] Bilirubin, total 0.9 0.1 - 1.2 mg/dL [facility] Protein, pl 6.0(L) 6.5 - 8.5 g/dL [facility] Albumin 2.8(L) 3.5 - 5.0 g/dL [facility] Alk phos 200(H) 40 - 130 Units/L [facility] ALT 47 7 - 55 Units/L [facility] AST 100(H) 10 - 50 Units/L [facility] Blood 06/11/2022 8:48 AM CDT 06/11/2022 9:02 AM CDT us Marcelina Lo HEEL EMERY BUFFER LAB BLOOD ORDERABLES Final Re sult Performing Organization Address [facility] Co de Phone Number [facility] [place] [address] * (ABNORMAL) CBC with auto differential (06/11/2022 8:48 AM CDT) WBC 10.4(H) 3.8 - 9.9 K/cumm [facility] Hgb 7.8(L) 13.0 - 17.5 g/dL [facility] Hct 23.4(L) 38.9 - 50.3 % [facility] Plt 191 150 - 400 K/cumm [facility] MPV 10.7 9.1 - 12.3 fL [facility] RBC 2.49(L) 4.30 - 5.80 M/cumm [facility] MCV 94.0 81.3 - 96.4 fL [facility] MCH 31.3 27.1 - 33.3 pg [facility] MCHC 33.3 32.3 - 35.7 g/dL [facility] RDW CV 13.2 11.1 - 14.9 % [facility] RDW SD 45.3 35.7 - 48.1 fL [facility] NRBC abs 0.03(H) 0.00 - 0.01 K/cumm [facility] Blood 06/11/2022 8:48 AM CDT 06/11/2022 9:02 AM CDT Marcelina Lo HEEL EMERY BUFFER LAB BLOOD ORDERABLES Final Re sult [facility] Department [place] [address] * POCT glucose (06/11/2022 8:46 AM CDT) Glucose, POC 169 70 - 199 mg/dL [facility] Blood 06/11/2022 8:46 AM CDT 06/11/2022 8:46 AM CDT Catherine Adams MD LAB POCT ORDERABLES - DEVIC E Final Result Performing Organization Address [facility] de Phone Number [facility] [place] [address] * (ABNORMAL) Blood gas, arterial (06/11/2022 6:34 AM CDT) pH, Art 7.43 7.35 - 7.45 [facility] PCO2, Arterial 34(L) 35 - 45 mmHg [facility] PO2, Arterial 87 83 - 108 mmHg [facility] HCO3 Art (Calculated) 24 20 - 30 mmol/L [facility] BE, art -1 mmol/L [facility] Comment: Interpretive Data No Reference Range Established Current Interpretive Data was last revised on 2017 O2 Sat Art (Measured) 97(H) 90 - 95 % [facility] Blood 06/11/2022 6:34 AM CDT 06/11/2022 6:44 AM CDT Catherine Adams MD LAB BLOOD ORDERABLES Final Result Performing Organization Address [facility] de Phone Number [facility] Department [place] [address] * XR Chest 1 View (06/11/2022 5:48 [...] gas, arterial (06/11/2022 3:31 AM CDT) Pathologist [facility] pH, Art 7.42 7.35 - 7.45 [facility] PCO2, Arterial 36 35 - 45 mmHg [facility] PO2, Arterial 115(H) 83 - 108 mmHg [facility] HCO3 Art (Calculated) 24 20 - 30 mmol/L [facility] BE, art -1 mmol/L [facility] Comment: Interpretive Data No Reference Range Established Current Interpretive Data was last revised on 2017 O2 Sat Art (Measured) 98(H) 90 - 95 % [facility] Blood 06/11/2022 3:31 AM CDT 06/11/2022 4:00 AM CDT us Marcelina Lo HEEL EMERY BUFFER LAB BLOOD ORDERABLES Final Re sult [facility] Department [place] [address] * Lactate, whole blood (06/11/2022 3:31 AM CDT) Pathologist [facility] Lactate, bld 1.1 0.7 - 2.0 mmol/L [facility] Blood 06/11/2022 3:31 AM CDT 06/11/2022 4:00 AM CDT us Marcelina Lo NP LAB BLOOD ORDERABLES Final Re sult Performing Organization Address City/[facility]/ZIP Co de Phone Number [facility] Department [place] [address] * POCT glucose (06/11/2022 3:28 AM CDT) Glucose, POC 155 70 - 199 mg/dL [facility] Blood 06/11/2022 3:28 AM CDT 06/11/2022 3:28 AM CDT Catherine Adams MD LAB POCT ORDERABLES - DEVIC E Final Result Performing Organization Address [facility] Co de Phone Number [facility] Department [place] [address] * Blood culture Blood Antecubital, right (06/11/2022 1:03 AM CDT) Report Final Report: No growth [facility] Blood (Antecubital, right) 06/11/2022 1:03 AM CDT 06/11/2022 9:01 AM CDT Narrative [facility] - 06/15/2022 12:00 PM CDT 1. ?Blood [...] organism identification may be performed using the Jike Xueyuanigene Gram-Positive Blood Culture Assay. This assay detects microbial DNA in positive blood culture broth via hybridization of target DNA to capture oligonucleotides on a microarray. This assay has been cleared by the [place] Food and Drug Administration and its performance characteristics have been verified by the [facility] Microbiology [facility]. 5. ?For questions about this culture, contact the Microbiology Laboratory at [phone]. Interpretive data was last revised on 2020. Catherine Adams MD LAB MICROBIOLOGY - GENERAL ORDERABLES Final Result [facility] Department [place] [address] * Blood culture Blood Antecubital, left (06/11/2022 [...] performance characteristics have been verified by the [facility]biology [facility]. 5. ?For questions about this culture, contact the Microbiology Laboratory at [phone]. Interpretive data was last revised on 2020. Catherine Adams MD LAB MICROBIOLOGY - GENERAL ORDERABLES Final Result Performing Organization Address City/[facility] Co de Phone Number [facility] Department [place] [address] * POCT glucose (06/11/2022 12:49 AM CDT) Glucose, POC 165 70 - 199 mg/dL [facility] Blood 06/11/2022 12:4 9 AM CDT 06/11/2022 12:49 AM CDT Catherine Adams MD LAB POCT ORDERABLES - DEVIC E Final Result Performing Organization Address [facility] Co de Phone Number [facility] Department [place] [address] * POCT glucose (06/10/2022 10:28 PM CDT) Glucose, POC 163 70 - 199 mg/dL [facility] Blood 06/10/2022 10:2 8 PM CDT 06/10/2022 10:28 PM CDT Catherine Adams MD LAB POCT ORDERABLES - DEVIC E Final Result Performing Organization Address [facility] Co de Phone Number [facility] [place] [address] * (ABNORMAL) eGFR (06/10/2022 10:27 PM CDT) [...] BLOOD ORDERABLES Final Result [facility] Department [place] [address] * (ABNORMAL) Manual Differential (06/10/2022 10:27 PM CDT) Pathologist [facility] Differential Manual [facility] Cells [facility]ed 118 [facility] Neutrophil abs 13.0(H) 1.7 - 6.5 K/cumm [facility] Imm gran abs 0.6(H) 0.0 - 0.1 K/cumm [facility] Lymphocyte abs 1.3 0.8 - 3.3 K/cumm [facility] Monocyte abs 1.5(H) 0.2 - 0.8 K/cumm [facility] Eosinophil abs 0.7(H) 0.0 - 0.5 K/cumm [facility] Basophil abs 0.1 0.0 - 0.1 K/cumm [facility] Neutrophil pct 75.6 % [facility] Comment: Interpretive Data Percent cell count reference ranges are not reported, since discordance with absolute values may lead to misinterpretation of CBC data. Current Interpretive Data was last revised on 2017. Lymphocyte pct 7.6 % [facility] Comment: Interpretive Data Percent cell count reference ranges are not reported, since discordance with absolute values may lead to misinterpretation of CBC data. Current Interpretive Data was last revised on 2017. Monocyte pct 8.5 % [facility] Comment: Interpretive Data Percent cell count reference ranges are not reported, since discordance with absolute values may lead to misinterpretation of CBC data. Current Interpretive Data was last revised on 2017. Eosinophil pct 4.2 % [facility] Comment: Interpretive Data Percent cell count reference ranges are not reported, since discordance with absolute values may lead to misinterpretation of CBC data. Current Interpretive Data was last revised on 2017. Basophil pct 0.8 % [facility] Comment: Interpretive Data Percent cell count reference ranges are not reported, since discordance with absolute values may lead to misinterpretation of CBC data. Current Interpretive Data was last revised on 2017. Metamyelocyte pct 1.7 % [facility] Myelocyte pct 0.8 % [facility] Promyelocyte pct 0.8 % [facility] Blood 06/10/2022 10:2 7 PM CDT 06/10/2022 10:44 PM CDT us Catherine Adams MD LAB BLOOD ORDERABLES Final Result [facility] Department [place] [address] * (ABNORMAL) Comprehensive metabolic panel (06/10/2022 10:27 PM CDT) Sodium 136 135 - 145 mmol/L [facility] Potassium, pl 4.9 3.3 - 4.9 mmol/L [facility] Chloride 99 97 - 110 mmol/L [facility] CO2 25 22 - 32 mmol/L [facility] Anion gap 12 2 - 15 mmol/L [facility] BUN 20 8 - 25 mg/dL [facility] Creatinine 2.33(H) 0.80 - 1.30 mg/dL [facility] Glucose 158 70 - 199 mg/dL [facility] Comment: Interpretive Data Fasting glucose >/= [...] Calcium 8.6 8.5 - 10.3 mg/dL [facility] Bilirubin, total 1.0 0.1 - 1.2 mg/dL [facility] Protein, pl 6.2(L) 6.5 - 8.5 g/dL [facility] Albumin 3.1(L) 3.5 - 5.0 g/dL [facility] Alk phos 216(H) 40 - 130 Units/L [facility] ALT 49 7 - 55 Units/L [facility] AST 114(H) 10 - 50 Units/L [facility] Blood 06/10/2022 10:2 7 PM CDT 06/10/2022 10:37 PM CDT Catherine Adams MD LAB BLOOD ORDERABLES Final Result [facility] [place] [address] * Magnesium (06/10/2022 10:27 PM CDT) [facility] Magnesium 2.5 1.4 - 2.5 mg/dL [facility] Blood 06/10/2022 10:2 7 PM CDT 06/10/2022 10:37 PM CDT us Catherine Adams MD LAB BLOOD ORDERABLES Final Result Performing Organization Address [facility] Co de Phone Number [facility] [place] [address] * Lactate, whole blood (06/10/2022 10:27 PM CDT) [facility] Lactate, bld 1.1 0.7 - 2.0 mmol/L [facility] Blood 06/10/2022 10:2 7 PM CDT 06/10/2022 10:36 PM CDT us Marcelina Lo NP LAB BLOOD ORDERABLES Final Re sult Performing Organization Address [facility] Co de Phone Number [facility] Department [place] [address] * (ABNORMAL) Blood gas, arterial (06/10/2022 10:27 PM CDT) [facility] pH, Art 7.39 7.35 - 7.45 [facility] PCO2, Arterial 37 35 - 45 mmHg [facility] PO2, Arterial 98 83 - 108 mmHg [facility] HCO3 Art (Calculated) 23 20 - 30 mmol/L [facility] BE, art -2 mmol/L [facility] Comment: Interpretive Data No Reference Range Established Current Interpretive Data was last revised on 2017 O2 Sat Art (Measured) 97(H) 90 - 95 % [facility] Blood 06/10/2022 10:2 7 PM CDT 06/10/2022 10:36 PM CDT Marcelina Lo HEEL EMERY BUFFER LAB BLOOD ORDERABLES Final Re sult Performing Organization Address City/[facility]/ZIP Co de Phone Number [facility] [place] [address] * Phosphorus (06/10/2022 10:27 PM CDT) Phosphorus, pl 3.6 2.3 - 4.5 mg/dL [facility] Blood 06/10/2022 10:2 7 PM CDT 06/10/2022 10:37 PM CDT Marcelina Lo HEEL EMERY BUFFER LAB BLOOD ORDERABLES Final Re sult Performing Organization Address [facility] Co de Phone Number [facility] [place] [address] * (ABNORMAL) Beta-hydroxybutyrate (06/10/2022 10:27 PM CDT) Beta-Hydroxybut yrate 1.1(H) 0.0 - 0.5 mmol/L [facility] Blood 06/10/2022 10:2 7 PM CDT 06/10/2022 10:37 PM CDT Marcelina Lo HEEL EMERY BUFFER LAB BLOOD ORDERABLES Edited R esult - Final Performing Organization Address [facility]/ZIP Co de Phone Number [facility] [place] [address] * Lipase (06/10/2022 10:27 PM CDT) Lipase 26 10 - 99 Units/L [facility] Blood 06/10/2022 10:2 7 PM CDT 06/10/2022 10:37 PM CDT Marcelina Lo HEEL EMERY BUFFER LAB BLOOD ORDERABLES Final Re sult Performing Organization Address City/[facility]/ZIP Co de Phone Number [facility] Department [place] [address] * (ABNORMAL) CBC with auto differential (06/10/2022 10:27 PM CDT) WBC 17.2(H) 3.8 - 9.9 K/cumm [facility] Hgb 9.0(L) 13.0 - 17.5 g/dL [facility] Hct 27.0(L) 38.9 - 50.3 % [facility] Plt 274 150 - 400 K/cumm [facility] MPV 10.7 9.1 - 12.3 fL [facility] RBC 2.88(L) 4.30 - 5.80 M/cumm [facility] MCV 93.8 81.3 - 96.4 fL [facility] MCH 31.3 27.1 - 33.3 pg [facility] MCHC 33.3 32.3 - 35.7 g/dL [facility] RDW CV 13.5 11.1 - 14.9 % [facility] RDW SD 46.1 35.7 - 48.1 fL [facility] NRBC abs 0.08(H) 0.00 - 0.01 K/cumm [facility] Blood 06/10/2022 10:2 7 PM CDT 06/10/2022 10:37 PM CDT Marcelina Lo HEEL EMERY BUFFER LAB BLOOD ORDERABLES Final Re sult [facility] Department [place] [address] * POCT glucose (06/10/2022 5:13 PM CDT) Glucose, POC 106 70 - 199 mg/dL [facility] Blood 06/10/2022 5:13 PM CDT 06/10/2022 5:13 PM CDT Catherine Adams MD LAB POCT ORDERABLES - DEVIC E Final Result Performing Organization Address [facility] Co de Phone Number [facility] Department [place] [address] * (ABNORMAL) Triglycerides (06/10/2022 5:13 PM CDT) Triglycerides 401(H) <=149 mg/dL [facility] Comment: Interpretive Data Ages < or [...] PM CDT 06/10/2022 5:39 PM CDT Narrative [facility] - 06/10/2022 6:07 PM CDT While on propofol infusion. Catherine Adams MD LAB BLOOD ORDERABLES Final Result Performing Organization Address [facility] de Phone Number [facility] Department [place] [address] * (ABNORMAL) Blood gas, arterial (06/10/2022 2:24 PM CDT) pH, Art 7.38 7.35 - 7.45 [facility] PCO2, Arterial 39 35 - 45 mmHg [facility] PO2, Arterial 66(L) 83 - 108 mmHg [facility] HCO3 Art (Calculated) 24 20 - 30 mmol/L [facility] BE, art -2 mmol/L [facility] Comment: Interpretive Data No Reference Range Established Current Interpretive Data was last revised on 2017 O2 Sat Art (Measured) 91 90 - 95 % [facility] Blood 06/10/2022 2:24 PM CDT 06/10/2022 2:31 PM CDT Marcelina Lo NP LAB BLOOD ORDERABLES Final Re sult Performing Organization Address [facility] Co de Phone Number [facility] Department [place] [address] * POCT glucose (06/10/2022 1:13 PM CDT) Glucose, POC 189 70 - 199 mg/dL [facility] Blood 06/10/2022 1:13 PM CDT 06/10/2022 1:13 PM CDT Catherine Adams MD LAB POCT ORDERABLES - DEVIC E Final Result [facility] Department [place] [address] * Lactate, whole blood (06/10/2022 1:12 PM CDT) Pathologist [facility] [facility] Lactate, bld 1.1 0.7 - 2.0 mmol/L [facility] Blood 06/10/2022 1:12 PM CDT 06/10/2022 1:25 PM CDT Marcelina Lo HEEL EMERY BUFFER LAB BLOOD ORDERABLES Final Re sult Performing Organization Address [facility] Co de Phone Number [facility] [place] [address] * (ABNORMAL) Blood gas, arterial (06/10/2022 1:12 PM CDT) pH, Art 7.40 7.35 - 7.45 [facility] PCO2, Arterial 36 35 - 45 mmHg [facility] PO2, Arterial 67(L) 83 - 108 mmHg [facility] HCO3 Art (Calculated) 23 20 - 30 mmol/L [facility] BE, art -2 mmol/L [facility] Comment: Interpretive Data No Reference Range Established Current Interpretive Data was last revised on 2017 O2 Sat Art (Measured) 92 90 - 95 % [facility] Blood 06/10/2022 1:12 PM CDT 06/10/2022 1:25 PM CDT Marcelina Lo HEEL EMERY BUFFER LAB BLOOD ORDERABLES Final Re sult Performing Organization Address [facility] Co de Phone Number [facility] [place] [address] * REMOVE VAD - DIFFERENT SESSION (06/10/2022 [...] pressure. 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 ??Impella is currently weaned to P2 and ready for removal. ?? Pre close system had been used with two 6 [place] pro style placed in orthogonal fashion prior [...] x2. 2. History of non ST elevation [place] with mild LV dysfunction status post recent [...] CDT) ACT 183(H) 123 - 168 sec [facility] Blood 06/10/2022 9:56 AM CDT 06/10/2022 9:56 AM CDT Catherine Adams MD LAB POCT ORDERABLES - DEVIC E Final Result Performing Organization Address [facility] de Phone Number [facility] [place] [address] * (ABNORMAL) POCT Activated clotting time, low range (06/10/2022 8:08 AM CDT) Pathologist [facility] ACT 214(H) 123 - 168 sec [facility] Blood 06/10/2022 8:08 AM CDT 06/10/2022 8:08 AM CDT Catherine Adams MD LAB POCT ORDERABLES - DEVIC E Final Result Performing Organization Address [facility] de Phone Number [facility] [place] [address] * POCT glucose (06/10/2022 7:54 AM CDT) [facility] Glucose, POC 138 70 - 199 mg/dL [facility] Blood 06/10/2022 7:54 AM CDT 06/10/2022 7:54 AM CDT Catherine Adams MD LAB POCT ORDERABLES - DEVIC E Final Result Performing Organization Address [facility] de Phone Number [facility] [place] [address] * (ABNORMAL) eGFR (06/10/2022 7:52 AM CDT) Pathologist [facility] eGFR 31(L) 90 - 130 mL/min/1. 73 m2 [facility] Comment: Interpretive Data Reference Interval Normal [...] Adams MD LAB BLOOD ORDERABLES Final Result [facility] Department of Laboratories [place], [place] [id number] * (ABNORMAL) Differential, auto (06/10/2022 7:52 AM CDT) Neutrophil abs 6.7(H) 1.7 - 6.5 K/cumm [facility] Imm gran abs 1.0(H) 0.0 - 0.1 K/cumm [facility] Lymphocyte abs 1.4 0.8 - 3.3 K/cumm [facility] Monocyte abs 0.9(H) 0.2 - 0.8 K/cumm [facility] Eosinophil abs 0.3 0.0 - 0.5 K/cumm [facility] Basophil abs 0.0 0.0 - 0.1 K/cumm [facility] Neutrophil pct 65.5 % [facility] Comment: Confirmed by smear review Interpretive Data Percent cell count reference ranges are not reported, since discordance with absolute values may lead to misinterpretation of CBC data. Current Interpretive Data was last revised on 2017. Imm gran pct 9.4 % [facility] Comment: Interpretive Data Percent cell count reference ranges are not reported, since discordance with absolute values may lead to misinterpretation of CBC data. Current Interpretive Data was last revised on 2017. Lymphocyte pct 13.4 % [facility] Comment: Interpretive Data Percent cell count reference ranges are not reported, since discordance with absolute values may lead to misinterpretation of CBC data. Current Interpretive Data was last revised on 2017. Monocyte pct 8.8 % [facility] Comment: Interpretive Data Percent cell count reference ranges are not reported, since discordance with absolute values may lead to misinterpretation of CBC data. Current Interpretive Data was last revised on 2017. Eosinophil pct 2.6 % [facility] Comment: Interpretive Data Percent cell count reference ranges are not reported, since discordance with absolute values may lead to misinterpretation of CBC data. Current Interpretive Data was last revised on 2017. Basophil pct 0.3 % [facility] Comment: Interpretive Data Percent cell count reference ranges are not reported, since discordance with absolute values may lead to misinterpretation of CBC data. Current Interpretive Data was last revised on 2017. Blood 06/10/2022 7:52 AM CDT 06/10/2022 8:07 AM CDT us Catherine Adams MD LAB BLOOD ORDERABLES Final Result [facility] Department [place] [address] * Lactate, whole blood (06/10/2022 7:52 AM CDT) Lactate, bld 1.2 0.7 - 2.0 mmol/L [facility] Blood 06/10/2022 7:52 AM CDT 06/10/2022 8:02 AM CDT us Marcelina D. Lo HEEL EMERY BUFFER LAB BLOOD ORDERABLES Final Re sult [facility] [place] [address] * (ABNORMAL) Blood gas, arterial (06/10/2022 7:52 AM CDT) pH, Art 7.46(H) 7.35 - 7.45 [facility] PCO2, Arterial 34(L) 35 - 45 mmHg [facility] PO2, Arterial 99 83 - 108 mmHg [facility] HCO3 Art (Calculated) 25 20 - 30 mmol/L [facility] BE, art 1 mmol/L [facility] Comment: Interpretive Data No Reference Range Established Current Interpretive Data was last revised on 2017 O2 Sat Art (Measured) 98(H) 90 - 95 % [facility] Blood 06/10/2022 7:52 AM CDT 06/10/2022 8:02 AM CDT Marcelina Lo HEEL EMERY BUFFER LAB BLOOD ORDERABLES Final Re sult Performing Organization Address [facility]/ZIP Co de Phone Number [facility] [place] [address] * Magnesium (06/10/2022 7:52 AM CDT) Pathologist [facility] Magnesium 2.4 1.4 - 2.5 mg/dL [facility] Blood 06/10/2022 7:52 AM CDT 06/10/2022 8:07 AM CDT Marcelina Lo HEEL EMERY BUFFER LAB BLOOD ORDERABLES Final Re sult [facility] [place] [address] * (ABNORMAL) Comprehensive metabolic panel (06/10/2022 7:52 AM CDT) Sodium 135 135 - 145 mmol/L [facility] Potassium, pl 4.3 3.3 - 4.9 mmol/L [facility] Chloride 100 97 - 110 mmol/L [facility] CO2 26 22 - 32 mmol/L [facility] Anion gap 9 2 - 15 mmol/L [facility] BUN 20 8 - 25 mg/dL [facility] Creatinine 2.44(H) 0.80 - 1.30 mg/dL [facility] Glucose 138 70 - 199 mg/dL [facility] Comment: Interpretive Data Fasting glucose >/= [...] 2017. Calcium 8.4(L) 8.5 - 10.3 mg/dL [facility] Bilirubin, total 0.8 0.1 - 1.2 mg/dL [facility] Protein, pl 6.2(L) 6.5 - 8.5 g/dL [facility] Albumin 3.0(L) 3.5 - 5.0 g/dL [facility] Alk phos 169(H) 40 - 130 Units/L [facility] ALT 45 7 - 55 Units/L [facility] AST 117(H) 10 - 50 Units/L [facility] Blood 06/10/2022 7:52 AM CDT 06/10/2022 8:07 AM CDT us Marceilna Lo NP LAB BLOOD ORDERABLES Final Re sult [facility] Department [place] [address] * (ABNORMAL) CBC with auto differential (06/10/2022 7:52 AM CDT) WBC 10.2(H) 3.8 - 9.9 K/cumm [facility] Hgb 8.3(L) 13.0 - 17.5 g/dL [facility] Hct 25.1(L) 38.9 - 50.3 % [facility] Plt 201 150 - 400 K/cumm [facility] MPV 10.9 9.1 - 12.3 fL [facility] RBC 2.70(L) 4.30 - 5.80 M/cumm [facility] MCV 93.0 81.3 - 96.4 fL [facility] MCH 30.7 27.1 - 33.3 pg [facility] MCHC 33.1 32.3 - 35.7 g/dL [facility] RDW CV 13.3 11.1 - 14.9 % [facility] RDW SD 45.1 35.7 - 48.1 fL [facility] NRBC abs 0.02(H) 0.00 - 0.01 K/cumm [facility] Blood 06/10/2022 7:52 AM CDT 06/10/2022 8:07 AM CDT us Marcelina Lo HEEL EMERY BUFFER LAB BLOOD ORDERABLES Final Re sult Performing Organization Address City/[facility]/ZIP Co de Phone Number [facility] [place] [address] * Oxyhemoglobin, central venous (06/10/2022 5:36 AM CDT) [facility] Oxyhemoglobin, CV 70.2 % [facility] Comment: Interpretive Data No reference range established. Current interpretive data was last revised 2019. Blood 06/10/2022 5:36 AM CDT 06/10/2022 5:58 AM CDT us Lavern Morrison MD LAB BLOOD ORDERABLES F inal Result [facility] [place] [address] * Lactate, whole blood (06/10/2022 5:36 AM CDT) Lactate, bld 1.4 0.7 - 2.0 mmol/L [facility] Blood 06/10/2022 5:36 AM CDT 06/10/2022 5:58 AM CDT us Marcelina Lo HEEL EMERY BUFFER LAB BLOOD ORDERABLES Final Re sult [facility] Department [place] [address] * XR Chest 1 View (06/10/2022 5:32 AM CDT) Anatomical Region Laterality Modality Body, Chest N/A Computed Radiogr aphy 06/10/2022 11:3 8 AM CDT Impressions 06/10/2022 11:42 AM CDT Comparison is made with prior radiograph dated 06/09/2022 7:57 AM. ??Left internal jugular central venous catheter terminates in the proximal superior vena cava. Feeding tube courses below diaphragm with tip not seen. Inferior approach [place] catheter has tip projecting over the main [...] diaphragm with tip not seen. Inferior approach [place] catheter has tip projecting over the main [...] CDT) pH, Art 7.45 7.35 - 7.45 [facility] PCO2, Arterial 36 35 - 45 mmHg [facility] PO2, Arterial 92 83 - 108 mmHg [facility] HCO3 Art (Calculated) 26 20 - 30 mmol/L [facility] BE, art 1 mmol/L [facility] Comment: Interpretive Data No Reference Range Established Current Interpretive Data was last revised on 2017 O2 Sat Art (Measured) 97(H) 90 - 95 % [facility] Blood 06/10/2022 3:45 AM CDT 06/10/2022 3:52 AM CDT Marcelina Lo HEEL EMERY BUFFER LAB BLOOD ORDERABLES Final Re sult [facility] Department [place] [address] * POCT glucose (06/10/2022 3:42 AM CDT) Glucose, POC 150 70 - 199 mg/dL [facility] Blood 06/10/2022 3:42 AM CDT 06/10/2022 3:42 AM CDT Catherine Adams MD LAB POCT ORDERABLES - DEVIC E Final Result Performing Organization Address [facility] Co de Phone Number [facility] [place] [address] * Lactate, whole blood (06/10/2022 12:26 AM CDT) Lactate, bld 1.4 0.7 - 2.0 mmol/L [facility] Blood 06/10/2022 12:2 6 AM CDT 06/10/2022 12:33 AM CDT Catherine Adams MD LAB BLOOD ORDERABLES Final Result Performing Organization Address [facility] de Phone Number [facility] [place] [address] * (ABNORMAL) Blood gas, arterial (06/10/2022 12:26 AM CDT) pH, Art 7.45 7.35 - 7.45 [facility] PCO2, Arterial 36 35 - 45 mmHg [facility] PO2, Arterial 102 83 - 108 mmHg [facility] HCO3 Art (Calculated) 26 20 - 30 mmol/L [facility] BE, art 2 mmol/L [facility] Comment: Interpretive Data No Reference Range Established Current Interpretive Data was last revised on 2017 O2 Sat Art (Measured) 96(H) 90 - 95 % [facility] Blood 06/10/2022 12:2 6 AM CDT 06/10/2022 12:33 AM CDT Marcelina Lo NP LAB BLOOD ORDERABLES Final Re sult Performing Organization Address [facility] Co de Phone Number [facility] [place] [address] * POCT glucose (06/10/2022 12:21 AM CDT) Glucose, POC 157 70 - 199 mg/dL [facility] Blood 06/10/2022 12:2 1 AM CDT 06/10/2022 12:21 AM CDT Result [facility] Catherine Adams MD LAB POCT ORDERABLES - DEVIC E Final Result Performing Organization Address [facility] de Phone Number [facility] Department [place] [address] * (ABNORMAL) Blood gas, arterial (06/09/2022 10:28 PM CDT) pH, Art 7.43 7.35 - 7.45 [facility] PCO2, Arterial 38 35 - 45 mmHg [facility] PO2, Arterial 93 83 - 108 mmHg [facility] HCO3 Art (Calculated) 26 20 - 30 mmol/L [facility] BE, art 1 mmol/L [facility] Comment: Interpretive Data No Reference Range Established Current Interpretive Data was last revised on 2017 O2 Sat Art (Measured) 97(H) 90 - 95 % [facility] Blood 06/09/2022 10:2 8 PM CDT 06/09/2022 10:38 PM CDT Result [facility] Catherine Adams MD LAB BLOOD ORDERABLES Final Result Performing Organization Address [facility] de Phone Number [facility] Department [place] [address] * POCT glucose (06/09/2022 8:40 PM CDT) Glucose, POC 182 70 - 199 mg/dL [facility] Blood 06/09/2022 8:40 PM CDT 06/09/2022 8:40 PM CDT Result [facility] Catherine Adams MD LAB POCT ORDERABLES - DEVIC E Final Result Performing Organization Address [facility] Co de Phone Number [facility] Department [place] [address] * (ABNORMAL) eGFR (06/09/2022 8:33 PM CDT) eGFR 26(L) 90 - 130 mL/min/1. 73 m2 [facility] Comment: Interpretive Data Reference Interval Normal [...] BLOOD ORDERABLES Final Result Performing Organization Address [facility] Co de Phone Number [facility] Department [place] [address] * (ABNORMAL) Differential, auto (06/09/2022 8:33 PM CDT) Neutrophil abs 5.8 1.7 - 6.5 K/cumm [facility] Imm gran abs 0.7(H) 0.0 - 0.1 K/cumm [facility] Lymphocyte abs 1.2 0.8 - 3.3 K/cumm [facility] Monocyte abs 1.0(H) 0.2 - 0.8 K/cumm [facility] Eosinophil abs 0.3 0.0 - 0.5 K/cumm [facility] Basophil abs 0.0 0.0 - 0.1 K/cumm [facility] Neutrophil pct 64.3 % [facility] Comment: Interpretive Data Percent cell count reference ranges are not reported, since discordance with absolute values may lead to misinterpretation of CBC data. Current Interpretive Data was last revised on 2017. Imm gran pct 7.7 % [facility] Comment: Interpretive Data Percent cell count reference ranges are not reported, since discordance with absolute values may lead to misinterpretation of CBC data. Current Interpretive Data was last revised on 2017. Lymphocyte pct 13.4 % [facility] Comment: Interpretive Data Percent cell count reference ranges are not reported, since discordance with absolute values may lead to misinterpretation of CBC data. Current Interpretive Data was last revised on 2017. Monocyte pct 11.5 % [facility] Comment: Interpretive Data Percent cell count reference ranges are not reported, since discordance with absolute values may lead to misinterpretation of CBC data. Current Interpretive Data was last revised on 2017. Eosinophil pct 2.8 % [facility] Comment: Interpretive Data Percent cell count reference ranges are not reported, since discordance with absolute values may lead to misinterpretation of CBC data. Current Interpretive Data was last revised on 2017. Basophil pct 0.3 % [facility] Comment: Interpretive Data Percent cell count reference ranges are not reported, since discordance with absolute values may lead to misinterpretation of CBC data. Current Interpretive Data was last revised on 2017. Blood 06/09/2022 8:33 PM CDT 06/09/2022 9:07 PM CDT us Catherine Adams MD LAB BLOOD ORDERABLES Final Result Performing Organization Address [facility] Co de Phone Number [facility] Department [place] [address] * (ABNORMAL) Blood gas, arterial (06/09/2022 8:33 PM CDT) pH, Art 7.41 7.35 - 7.45 [facility] PCO2, Arterial 39 35 - 45 mmHg [facility] PO2, Arterial 92 83 - 108 mmHg [facility] HCO3 Art (Calculated) 25 20 - 30 mmol/L [facility] BE, art 0 mmol/L [facility] Comment: Interpretive Data No Reference Range Established Current Interpretive Data was last revised on 2017 O2 Sat Art (Measured) 96(H) 90 - 95 % [facility] Blood 06/09/2022 8:33 PM CDT 06/09/2022 8:58 PM CDT us Marcelina Lo NP LAB BLOOD ORDERABLES Final Re sult Performing Organization Address [facility] Co de Phone Number [facility] Department [place] [address] * (ABNORMAL) aPTT (06/09/2022 8:33 PM CDT) Pathologist [facility] aPTT 92(H) 27 - 37 sec [facility] Comment: Interpretive Data Therapeutic heparin range: 60.0 - 94.0 seconds. Based on correlation with therapeutic heparin activity range of 0.3-0.7 Units/mL. Current interpretive data was last revised on 2020. Blood 06/09/2022 8:33 PM CDT 06/09/2022 9:01 PM CDT Narrative [facility] - 06/09/2022 9:28 PM CDT Draw [...] Ann Marie l Result Performing Organization Address [facility] Co de Phone Number [facility] [place] [address] * Phosphorus (06/09/2022 8:33 PM CDT) Phosphorus, pl 3.2 2.3 - 4.5 mg/dL [facility] Blood 06/09/2022 8:3 3 PM CDT 06/09/2022 9:07 PM CDT Marcelina Lo HEEL EMERY BUFFER LAB BLOOD ORDERABLES Final Re sult Performing Organization Address [facility] Co de Phone Number [facility] [place] [address] * Beta-hydroxybutyrate (06/09/2022 8:33 PM CDT) Beta-Hydroxybut yrate 0.3 0.0 - 0.5 mmol/L [facility] Blood 06/09/2022 8:33 PM CDT 06/09/2022 9:07 PM CDT Marcelina Lo HEEL EMERY BUFFER LAB BLOOD ORDERABLES Edited R esult - Final Performing Organization Address [facility] Co de Phone Number [facility] [place] [address] * Haptoglobin (06/09/2022 8:33 PM CDT) Haptoglobin 153.0 30.0 - 200.0 mg/dL [facility] Blood 06/09/2022 8:33 PM CDT 06/09/2022 9:07 PM CDT Catherine Adams MD LAB BLOOD ORDERABLES Final Result Performing Organization Address [facility] Co de Phone Number [facility] [place] [address] * Lipase (06/09/2022 8:33 PM CDT) Lipase 21 10 - 99 Units/L [facility] Blood 06/09/2022 8:33 PM CDT 06/09/2022 9:07 PM CDT Marcelina Lo HEEL EMERY BUFFER LAB BLOOD ORDERABLES Final Re sult Performing Organization Address [facility] de Phone Number [facility] [place] [address] * (ABNORMAL) Lactate dehydrogenase (LD) (06/09/2022 8:33 PM CDT) Lactate dehydrogenase (LDH) 528(H) 100 - 250 Units/L [facility] Blood 06/09/2022 8:33 PM CDT 06/09/2022 9:07 PM CDT Catherine Adams MD LAB BLOOD ORDERABLES Final Result Performing Organization Address [facility] Co de Phone Number [facility] [place] [address] * Magnesium (06/09/2022 8:33 PM CDT) Magnesium 2.4 1.4 - 2.5 mg/dL [facility] Blood 06/09/2022 8:33 PM CDT 06/09/2022 9:07 PM CDT Marcelina Lo HEEL EMERY BUFFER LAB BLOOD ORDERABLES Final Re sult Performing Organization Address [facility]/ZIP Co de Phone Number [facility] Department [place] [address] * (ABNORMAL) Comprehensive metabolic panel (06/09/2022 8:33 PM CDT) Sodium 134(L) 135 - 145 mmol/L [facility] Potassium, pl 4.4 3.3 - 4.9 mmol/L [facility] Chloride 99 97 - 110 mmol/L [facility] CO2 25 22 - 32 mmol/L [facility] Anion gap 10 2 - 15 mmol/L [facility] BUN 24 8 - 25 mg/dL [facility] Creatinine 2.82(H) 0.80 - 1.30 mg/dL [facility] Glucose 173 70 - 199 mg/dL [facility] Comment: Interpretive Data Fasting glucose >/= [...] 2017. Calcium 8.3(L) 8.5 - 10.3 mg/dL [facility] Bilirubin, total 0.8 0.1 - 1.2 mg/dL [facility] Protein, pl 6.1(L) 6.5 - 8.5 g/dL [facility] Albumin 2.8(L) 3.5 - 5.0 g/dL [facility] Alk phos 168(H) 40 - 130 Units/L [facility] ALT 45 7 - 55 Units/L [facility] AST 129(H) 10 - 50 Units/L [facility] Blood 06/09/2022 8:33 PM CDT 06/09/2022 9:07 PM CDT us Marcelina Lo HEEL EMERY BUFFER LAB BLOOD ORDERABLES Final Re sult Performing Organization Address [facility] Co de Phone Number [facility] [place] [address] * (ABNORMAL) CBC with auto differential (06/09/2022 8:33 PM CDT) [facility] WBC 9.1 3.8 - 9.9 K/cumm [facility] Hgb 8.2(L) 13.0 - 17.5 g/dL [facility] Hct 24.8(L) 38.9 - 50.3 % [facility] Plt 208 150 - 400 K/cumm [facility] MPV 11.0 9.1 - 12.3 fL [facility] RBC 2.66(L) 4.30 - 5.80 M/cumm [facility] MCV 93.2 81.3 - 96.4 fL [facility] MCH 30.8 27.1 - 33.3 pg [facility] MCHC 33.1 32.3 - 35.7 g/dL [facility] RDW CV 13.2 11.1 - 14.9 % [facility] RDW SD 45.5 35.7 - 48.1 fL [facility] NRBC abs 0.00 0.00 - 0.01 K/cumm [facility] Blood 06/09/2022 8:33 PM CDT 06/09/2022 9:07 PM CDT Marcelina Lo HEEL EMERY BUFFER LAB BLOOD ORDERABLES Final Re sult Performing Organization Address [facility] Co de Phone Number [facility] Department [place] [address] * Oxyhemoglobin, pulmonary artery (06/09/2022 3:52 PM CDT) Pathologist [facility] Oxyhemoglobin, PA 66.5 % [facility] Comment: Interpretive Data No reference range established. Current interpretive data was last revised 2019. Blood 06/09/2022 3:52 PM CDT 06/09/2022 4:01 PM CDT Marcelina Lo HEEL EMERY BUFFER LAB BLOOD ORDERABLES Final Re sult Performing Organization Address [facility] Co de Phone Number [facility] [place] [address] * Lactate, whole blood (06/09/2022 3:52 PM CDT) [facility] Lactate, bld 1.4 0.7 - 2.0 mmol/L [facility] Blood 06/09/2022 3:52 PM CDT 06/09/2022 4:01 PM CDT Marcelina Lo HEEL EMERY BUFFER LAB BLOOD ORDERABLES Final Re sult Performing Organization Address [facility] de Phone Number [facility] [place] [address] * (ABNORMAL) Hemoglobin total, pulmonary artery (06/09/2022 3:52 PM CDT) [facility] Hemoglobin total, PA 8.9(L) 13.0 - 17.5 g/dL [facility] Blood 06/09/2022 3:52 PM CDT 06/09/2022 4:01 PM CDT Marcelina Lo HEEL EMERY BUFFER LAB BLOOD ORDERABLES Final Re sult Performing Organization Address [facility] Co de Phone Number [facility] [place] [address] * (ABNORMAL) Blood gas, arterial (06/09/2022 3:52 PM CDT) [facility] pH, Art 7.38 7.35 - 7.45 [facility] PCO2, Arterial 45 35 - 45 mmHg [facility] PO2, Arterial 80(L) 83 - 108 mmHg [facility] HCO3 Art (Calculated) 27 20 - 30 mmol/L [facility] BE, art 1 mmol/L [facility] Comment: Interpretive Data No Reference Range Established Current Interpretive Data was last revised on 2017 O2 Sat Art (Measured) 94 90 - 95 % [facility] Blood 06/09/2022 3:52 PM CDT 06/09/2022 4:01 PM CDT Catherine Adams MD LAB BLOOD ORDERABLES Final Result Performing Organization Address City/[facility] Co de Phone Number [facility] Department [place] [address] * POCT glucose (06/09/2022 3:50 PM CDT) Glucose, POC 136 70 - 199 mg/dL [facility] Blood 06/09/2022 3:50 PM CDT 06/09/2022 3:50 PM CDT us Catherine Adams MD LAB POCT ORDERABLES - DEVIC E Final Result Performing Organization Address [facility] Co de Phone Number [facility] Department [place] [address] * Lactate, whole blood (06/09/2022 11:59 AM CDT) Lactate, bld 1.3 0.7 - 2.0 mmol/L [facility] Blood 06/09/2022 11:5 9 AM CDT 06/09/2022 12:10 PM CDT us Marcelina Lo NP LAB BLOOD ORDERABLES Final Re sult Performing Organization Address [facility] Co de Phone Number [facility] [place] [address] * (ABNORMAL) Hemoglobin total, pulmonary artery (06/09/2022 11:59 AM CDT) Hemoglobin total, PA 10.2(L) 13.0 - 17.5 g/dL [facility] Blood 06/09/2022 11:5 9 AM CDT 06/09/2022 12:10 PM CDT Marcelina Lo HEEL EMERY BUFFER LAB BLOOD ORDERABLES Final Re sult Performing Organization Address City/[facility]/ZIP Co de Phone Number [facility] [place] [address] * Oxyhemoglobin, pulmonary artery (06/09/2022 11:59 AM CDT) Oxyhemoglobin, PA 65.2 % [facility] Comment: Interpretive Data No reference range established. Current interpretive data was last revised 2019. Blood 06/09/2022 11:5 9 AM CDT 06/09/2022 12:10 PM CDT Marcelina Lo HEEL EMERY BUFFER LAB BLOOD ORDERABLES Final Re sult Performing Organization Address [facility] Co de Phone Number [facility] [place] [address] * (ABNORMAL) aPTT (06/09/2022 11:59 AM CDT) aPTT 79(H) 27 - 37 sec [facility] Comment: Interpretive Data Therapeutic heparin range: 60.0 - 94.0 seconds. Based on correlation with therapeutic heparin activity range of 0.3-0.7 Units/mL. Current interpretive data was last revised on 2020. Blood 06/09/2022 11:5 9 AM CDT 06/09/2022 12:14 PM CDT Narrative [facility] - 06/09/2022 12:40 PM CDT Draw [...] LAB BLOOD ORDERABLES Ann Marie l Result [facility] Department [place] [address] * POCT glucose (06/09/2022 11:58 AM CDT) [facility] Signature Glucose, POC 171 70 - 199 mg/dL [facility] Blood 06/09/2022 11:5 8 AM CDT 06/09/2022 11:58 AM CDT Catherine Adams MD LAB POCT ORDERABLES - DEVIC E Final Result Performing Organization Address [facility] Co de Phone Number [facility] Department [place] [address] * XR Chest 1 View (06/09/2022 8:57 [...] diaphragm with tip not seen. Inferior approach [place]-Liv catheter has been retracted with the tip projecting over the main pulmonary artery. An Impella device is in place, unchanged. There is mild cardiomegaly, unchanged. There is moderate asymmetric left lung and right upper lobe pulmonary edema. Likely small left pleural effusion although the left costophrenic angle is partially off the [id number]. No right pleural effusion or pneumothorax. Second exam ??06/09/2022 7:57 AM The [place]-Liv catheter has been slightly advanced with tip [...] diaphragm with tip not seen. Inferior approach [place]-Liv catheter has been retracted with the tip projecting over the main pulmonary artery. An Impella device is in place, unchanged. There is mild cardiomegaly, unchanged. There is moderate asymmetric left lung and right upper lobe pulmonary edema. Likely small left pleural effusion although the left costophrenic angle is partially off the [id number]. No right pleural effusion or pneumothorax. Second exam 06/09/2022 7:57 AM The [place]-Liv catheter has been slightly advanced with tip [...] * (ABNORMAL) eGFR (06/09/2022 7:57 AM CDT) [facility] eGFR 20(L) 90 - 130 mL/min/1. 73 m2 [facility] Comment: Interpretive Data Reference Interval Normal [...] BLOOD ORDERABLES Final Result Performing Organization Address City/State/[facility] Co de Phone Number [facility] Department of Laboratories [place], [place] [id number] * (ABNORMAL) Differential, auto (06/09/2022 7:57 AM CDT) Neutrophil abs 5.8 1.7 - 6.5 K/cumm [facility] Imm gran abs 0.5(H) 0.0 - 0.1 K/cumm [facility] Lymphocyte abs 1.2 0.8 - 3.3 K/cumm [facility] Monocyte abs 1.0(H) 0.2 - 0.8 K/cumm [facility] Eosinophil abs 0.2 0.0 - 0.5 K/cumm [facility] Basophil abs 0.0 0.0 - 0.1 K/cumm [facility] Neutrophil pct 67.0 % [facility] Comment: Interpretive Data Percent cell count reference ranges are not reported, since discordance with absolute values may lead to misinterpretation of CBC data. Current Interpretive Data was last revised on 2017. Imm gran pct 5.6 % [facility] Comment: Interpretive Data Percent cell count reference ranges are not reported, since discordance with absolute values may lead to misinterpretation of CBC data. Current Interpretive Data was last revised on 2017. Lymphocyte pct 13.6 % [facility] Comment: Interpretive Data Percent cell count reference ranges are not reported, since discordance with absolute values may lead to misinterpretation of CBC data. Current Interpretive Data was last revised on 2017. Monocyte pct 11.4 % [facility] Comment: Interpretive Data Percent cell count reference ranges are not reported, since discordance with absolute values may lead to misinterpretation of CBC data. Current Interpretive Data was last revised on 2017. Eosinophil pct 2.2 % [facility] Comment: Interpretive Data Percent cell count reference ranges are not reported, since discordance with absolute values may lead to misinterpretation of CBC data. Current Interpretive Data was last revised on 2017. Basophil pct 0.2 % [facility] Comment: Interpretive Data Percent cell count reference ranges are not reported, since discordance with absolute values may lead to misinterpretation of CBC data. Current Interpretive Data was last revised on 2017. Blood 06/09/2022 7:57 AM CDT 06/09/2022 8:19 AM CDT us Catherine Adams MD LAB BLOOD ORDERABLES Final Result [facility] Department [place] [address] * Magnesium (06/09/2022 7:57 AM CDT) Magnesium 2.3 1.4 - 2.5 mg/dL [facility] Blood 06/09/2022 7:57 AM CDT 06/09/2022 8:19 AM CDT us Marcelina Lo NP LAB BLOOD ORDERABLES Final Re sult [facility] Department [place] [address] * (ABNORMAL) Comprehensive metabolic panel (06/09/2022 7:57 AM CDT) Sodium 134(L) 135 - 145 mmol/L [facility] Potassium, pl 4.5 3.3 - 4.9 mmol/L [facility] Chloride 99 97 - 110 mmol/L [facility] CO2 28 22 - 32 mmol/L [facility] Anion gap 7 2 - 15 mmol/L [facility] BUN 32(H) 8 - 25 mg/dL [facility] Creatinine 3.50(H) 0.80 - 1.30 mg/dL [facility] Glucose 171 70 - 199 mg/dL [facility] Comment: Interpretive Data Fasting glucose >/= [...] 2017. Calcium 8.4(L) 8.5 - 10.3 mg/dL [facility] Bilirubin, total 0.6 0.1 - 1.2 mg/dL [facility] Protein, pl 5.8(L) 6.5 - 8.5 g/dL [facility] Albumin 2.8(L) 3.5 - 5.0 g/dL [facility] Alk phos 165(H) 40 - 130 Units/L [facility] ALT 43 7 - 55 Units/L [facility] AST 133(H) 10 - 50 Units/L [facility] Blood 06/09/2022 7:57 AM CDT 06/09/2022 8:19 AM CDT us Marcelina Lo HEEL EMERY BUFFER LAB BLOOD ORDERABLES Final Re sult Performing Organization Address [facility] de Phone Number [facility] Department [place] [address] * Potassium, whole blood (06/09/2022 7:57 AM CDT) Pathologist [facility] Potassium, bld 4.2 3.3 - 4.9 mmol/L [facility] Blood 06/09/2022 7:57 AM CDT 06/09/2022 8:14 AM CDT Marcelina Lo HEEL EMERY BUFFER LAB BLOOD ORDERABLES Final Re sult Performing Organization Address [facility] de Phone Number [facility] [place] [address] * (ABNORMAL) Blood gas, arterial (06/09/2022 7:57 AM CDT) Pathologist [facility] pH, Art 7.43 7.35 - 7.45 [facility] PCO2, Arterial 39 35 - 45 mmHg [facility] PO2, Arterial 107 83 - 108 mmHg [facility] HCO3 Art (Calculated) 27 20 - 30 mmol/L [facility] BE, art 2 mmol/L [facility] Comment: Interpretive Data No Reference Range Established Current Interpretive Data was last revised on 2017 O2 Sat Art (Measured) 97(H) 90 - 95 % [facility] Blood 06/09/2022 7:57 AM CDT 06/09/2022 8:14 AM CDT us Marcelina Lo HEEL EMERY BUFFER LAB BLOOD ORDERABLES Final Re sult Performing Organization Address [facility] de Phone Number [facility] Department [place] [address] * Lactate, whole blood (06/09/2022 7:57 AM CDT) Lactate, bld 1.1 0.7 - 2.0 mmol/L [facility] Blood 06/09/2022 7:57 AM CDT 06/09/2022 8:14 AM CDT Marcelina Lo HEEL EMERY BUFFER LAB BLOOD ORDERABLES Final Re sult Performing Organization Address [facility]/ZIP Co de Phone Number [facility] [address] [facility] [place] [address] * Type and screen (06/09/2022 7:57 AM CDT) Pathologist [facility] ABO Rh A Positive [facility] Maribel, indirect Negative [facility] Blood 06/09/2022 7:57 AM CDT 06/09/2022 8:20 AM CDT Narrative [facility] - 06/09/2022 9:11 AM CDT Has the patient had Daratumumab or Isatuximab in the past 6 months?->Unknown Catherine Adams MD LAB BLOOD BANK TEST ORDERAB LES Final Result Performing Organization Address [facility] Co de Phone Number [facility] [place] [address] * (ABNORMAL) Hemoglobin total, pulmonary artery (06/09/2022 7:57 AM CDT) Pathologist [facility] Hemoglobin total, PA 8.7(L) 13.0 - 17.5 g/dL [facility] Blood 06/09/2022 7:57 AM CDT 06/09/2022 8:43 AM CDT Marceilna Lo HEEL EMERY BUFFER LAB BLOOD ORDERABLES Final Re sult Performing Organization Address City/[facility]/ZIP Co de Phone Number [facility] Department [place] [address] * Oxyhemoglobin, pulmonary artery (06/09/2022 7:57 AM CDT) [facility] Oxyhemoglobin, PA 55.8 % [facility] Comment: Interpretive Data No reference range established. Current interpretive data was last revised 2019. Blood 06/09/2022 7:57 AM CDT 06/09/2022 8:43 AM CDT us Marcelina Lo HEEL EMERY BUFFER LAB BLOOD ORDERABLES Final Re sult [facility] [place] [address] * (ABNORMAL) CBC with auto differential (06/09/2022 7:57 AM CDT) [facility] WBC 8.6 3.8 - 9.9 K/cumm [facility] Hgb 8.1(L) 13.0 - 17.5 g/dL [facility] Hct 23.5(L) 38.9 - 50.3 % [facility] Plt 179 150 - 400 K/cumm [facility] MPV 11.1 9.1 - 12.3 fL [facility] RBC 2.61(L) 4.30 - 5.80 M/cumm [facility] MCV 90.0 81.3 - 96.4 fL [facility] MCH 31.0 27.1 - 33.3 pg [facility] MCHC 34.5 32.3 - 35.7 g/dL [facility] RDW CV 13.4 11.1 - 14.9 % [facility] RDW SD 44.2 35.7 - 48.1 fL [facility] NRBC abs 0.00 0.00 - 0.01 K/cumm [facility] Blood 06/09/2022 7:57 AM CDT 06/09/2022 8:19 AM CDT Marcelina Lo NP LAB BLOOD ORDERABLES Final Re sult Performing Organization Address [facility] Co de Phone Number [facility] [place] [address] * POCT glucose (06/09/2022 7:55 AM CDT) Glucose, POC 155 70 - 199 mg/dL [facility] Blood 06/09/2022 7:55 AM CDT 06/09/2022 7:55 AM CDT Catherine Adams MD LAB POCT ORDERABLES - DEVIC E Final Result Performing Organization Address [facility] Co de Phone Number [facility] [place] [address] * (ABNORMAL) aPTT (06/09/2022 5:24 AM CDT) aPTT 66(H) 27 - 37 sec [facility] Comment: Interpretive Data Therapeutic heparin range: 60.0 - 94.0 seconds. Based on correlation with therapeutic heparin activity range of 0.3-0.7 Units/mL. Current interpretive data was last revised on 2020. Blood 06/09/2022 5:24 AM CDT 06/09/2022 5:53 AM CDT Narrative [facility] - 06/09/2022 6:02 AM CDT Draw [...] Ann Marie l Result Performing Organization Address [facility] Co de Phone Number [facility] [place] [address] * (ABNORMAL) Blood gas, arterial (06/09/2022 5:24 AM CDT) pH, Art 7.44 7.35 - 7.45 [facility] PCO2, Arterial 38 35 - 45 mmHg [facility] PO2, Arterial 71(L) 83 - 108 mmHg [facility] HCO3 Art (Calculated) 26 20 - 30 mmol/L [facility] BE, art 2 mmol/L [facility] Comment: Interpretive Data No Reference Range Established Current Interpretive Data was last revised on 2017 O2 Sat Art (Measured) 94 90 - 95 % [facility] Blood 06/09/2022 5:24 AM CDT 06/09/2022 5:37 AM CDT us Marcelina Lo HEEL EMERY BUFFER LAB BLOOD ORDERABLES Final Re sult [facility] Department [place] [address] * XR Chest 1 View (06/09/2022 4:30 [...] diaphragm with tip not seen. Inferior approach [place]-Liv catheter has been retracted with the tip projecting over the main pulmonary artery. An Impella device is in place, unchanged. There is mild cardiomegaly, unchanged. There is moderate asymmetric left lung and right upper lobe pulmonary edema. Likely small left pleural effusion although the left costophrenic angle is partially off the [id number]. No right pleural effusion or pneumothorax. Second exam ??06/09/2022 7:57 AM The [place]-Liv catheter has been slightly advanced with tip [...] diaphragm with tip not seen. Inferior approach [place]-Liv catheter has been retracted with the tip projecting over the main pulmonary artery. An Impella device is in place, unchanged. There is mild cardiomegaly, unchanged. There is moderate asymmetric left lung and right upper lobe pulmonary edema. Likely small left pleural effusion although the left costophrenic angle is partially off the [id number]. No right pleural effusion or pneumothorax. Second exam 06/09/2022 7:57 AM The [place]-Liv catheter has been slightly advanced with tip [...] ur 0-5 0 - 5 /HPF [facility] RBC, ur 6-10(A) 0 - 2 /HPF [facility] Hyaline casts, ur 1-5 0 - 10 /LPF [facility] Granular casts, ur 1-5(A) 0 - 0 /LPF [facility] Culture Reflex Comment Reflex conditions for urine culture (WBC >10) not met. [facility] Urine 06/09/2022 4:08 AM CDT 06/09/2022 4:16 AM CDT Catherine Adams MD LAB URINE ORDERABLES Final Result [facility] Department [place] [address] * (ABNORMAL) Urinalysis reflex to microscopic and culture Urine (06/09/2022 4:08 AM CDT) Color, ur Yellow Yellow [facility] Clarity, ur Clear Clear [facility] Specific gravity, ur 1.018 1.003 - 1.030 [facility] pH, urine 5.5 [facility] Protein, ur ql 1+(A) Negative [facility] Glucose, ur ql 4+(A) Negative [facility] Ketones, ur Negative Negative [facility] Bilirubin, ur Negative Negative [facility] Blood, ur 2+(A) Negative [facility] Urobilinogen, ur <2.0 <2.0 mg/dL [facility] Nitrite, ur Negative Negative [facility] Leukocyte esterase, ur Negative Negative [facility] UA reflex comment Reflex to microscopic UA will be performed. [facility] Urine 06/09/2022 4:08 AM CDT 06/09/2022 4:16 AM CDT Narrative [facility] - 06/09/2022 4:35 AM CDT ?? Urine pH is affected by diet, medications, systemic acid-base disturbances, and renal tubular function. ??pH may affect urinary stone formation. ??For example, urine pH below 6.0 may help reduce the tendency for calcium phosphate stones and pH greater than 6.0 may reduce the tendency for uric acid stone formation. Source: [place] [employer]. Last revised 08-31-2017 Catherine Adams MD LAB MICROBIOLOGY - GENERAL ORDERABLES Final Result Performing Organization Address [facility] Co de Phone Number [facility] [place] [address] * POCT glucose (06/09/2022 4:06 AM CDT) Glucose, POC 147 70 - 199 mg/dL [facility] Blood 06/09/2022 4:06 AM CDT 06/09/2022 4:06 AM CDT Catherine Adams MD LAB POCT ORDERABLES - DEVIC E Final Result Performing Organization Address [facility] de Phone Number [facility] [place] [address] * (ABNORMAL) Hemoglobin and hematocrit (06/08/2022 11:27 PM CDT) Hgb 7.5(L) 13.0 - 17.5 g/dL [facility] Hct 22.0(L) 38.9 - 50.3 % [facility] Blood 06/08/2022 11:2 7 PM CDT 06/08/2022 11:40 PM CDT Meme Castro MD LAB BLOOD ORDERABLES Final Result Performing Organization Address [facility] Co de Phone Number [facility] [place] [address] * (ABNORMAL) Hemoglobin total, pulmonary artery (06/08/2022 11:27 PM CDT) Hemoglobin total, PA 8.1(L) 13.0 - 17.5 g/dL [facility] Blood 06/08/2022 11:2 7 PM CDT 06/08/2022 11:36 PM CDT Marcelina Lo HEEL EMERY BUFFER LAB BLOOD ORDERABLES Final Re sult Performing Organization Address [facility] Co de Phone Number [facility] [place] [address] * Oxyhemoglobin, pulmonary artery (06/08/2022 11:27 PM CDT) Oxyhemoglobin, PA 57.4 % [facility] Comment: Interpretive Data No reference range established. Current interpretive data was last revised 2019. Blood 06/08/2022 11:2 7 PM CDT 06/08/2022 11:36 PM CDT Marcelina Lo HEEL EMERY BUFFER LAB BLOOD ORDERABLES Final Re sult Performing Organization Address [facility] de Phone Number [facility] [place] [address] * (ABNORMAL) aPTT (06/08/2022 11:27 PM CDT) aPTT 44(H) 27 - 37 sec [facility] Comment: Interpretive Data Therapeutic heparin range: 60.0 - 94.0 seconds. Based on correlation with therapeutic heparin activity range of 0.3-0.7 Units/mL. Current interpretive data was last revised on 2020. Blood 06/08/2022 11:2 7 PM CDT 06/09/2022 12:13 AM CDT Narrative [facility] - 06/09/2022 12:22 AM CDT Draw [...] Ann Marie l Result Performing Organization Address [facility] Co de Phone Number [facility] [place] [address] * POCT glucose (06/08/2022 11:25 PM CDT) Glucose, POC 156 70 - 199 mg/dL [facility] Blood 06/08/2022 11:2 5 PM CDT 06/08/2022 11:25 PM CDT us Catherine Adams MD LAB POCT ORDERABLES - DEVIC E Final Result Performing Organization Address City/[facility] [place] [address] * Phosphorus (06/08/2022 8:08 PM CDT) [facility] Phosphorus, pl 3.7 2.3 - 4.5 mg/dL [facility] Blood 06/08/2022 8:08 PM CDT 06/08/2022 8:31 PM CDT us Catherine Adams MD LAB BLOOD ORDERABLES Final Result Performing Organization Address City/[facility]/ZIP Co de Phone Number [facility] Department [place] [address] * Magnesium (06/08/2022 8:08 PM CDT) [facility] Magnesium 2.4 1.4 - 2.5 mg/dL [facility] Blood 06/08/2022 8:08 PM CDT 06/08/2022 8:31 PM CDT us Catherine Adams MD LAB BLOOD ORDERABLES Final Result [facility] [place] [address] * (ABNORMAL) eGFR (06/08/2022 8:08 PM CDT) eGFR 14(L) 90 - 130 mL/min/1. 73 m2 [facility] Comment: Interpretive Data Reference Interval Normal [...] LAB BLOOD ORDERABLES Ann Marie kramer Result [facility] Department [place] [address] * (ABNORMAL) Haptoglobin (06/08/2022 8:08 PM CDT) Haptoglobin 219.0(H) 30.0 - 200.0 mg/dL [facility] Blood 06/08/2022 8:08 PM CDT 06/08/2022 8:31 PM CDT us Catherine Adams MD LAB BLOOD ORDERABLES Final Result Performing Organization Address City/[facility]/ZIP Co de Phone Number [facility] Department [place] [address] * Lipase (06/08/2022 8:08 PM CDT) Pathologist [facility] Lipase 11 10 - 99 Units/L [facility] Blood 06/08/2022 8:08 PM CDT 06/08/2022 8:31 PM CDT Catherine Adams MD LAB BLOOD ORDERABLES Final Result Performing Organization Address [facility] de Phone Number [facility] Department [place] [address] * (ABNORMAL) Differential, auto (06/08/2022 8:08 PM CDT) [facility] Neutrophil abs 7.0(H) 1.7 - 6.5 K/cumm [facility] Imm gran abs 0.4(H) 0.0 - 0.1 K/cumm [facility] Lymphocyte abs 0.9 0.8 - 3.3 K/cumm [facility] Monocyte abs 0.9(H) 0.2 - 0.8 K/cumm [facility] Eosinophil abs 0.1 0.0 - 0.5 K/cumm [facility] Basophil abs 0.0 0.0 - 0.1 K/cumm [facility] Neutrophil pct 75.3 % [facility] Comment: Interpretive Data Percent cell count reference ranges are not reported, since discordance with absolute values may lead to misinterpretation of CBC data. Current Interpretive Data was last revised on 2017. Imm gran pct 3.8 % [facility] Comment: Interpretive Data Percent cell count reference ranges are not reported, since discordance with absolute values may lead to misinterpretation of CBC data. Current Interpretive Data was last revised on 2017. Lymphocyte pct 10.0 % [facility] Comment: Interpretive Data Percent cell count reference ranges are not reported, since discordance with absolute values may lead to misinterpretation of CBC data. Current Interpretive Data was last revised on 2017. Monocyte pct 9.8 % [facility] Comment: Interpretive Data Percent cell count reference ranges are not reported, since discordance with absolute values may lead to misinterpretation of CBC data. Current Interpretive Data was last revised on 2017. Eosinophil pct 1.0 % [facility] Comment: Interpretive Data Percent cell count reference ranges are not reported, since discordance with absolute values may lead to misinterpretation of CBC data. Current Interpretive Data was last revised on 2017. Basophil pct 0.1 % [facility] Comment: Interpretive Data Percent cell count reference ranges are not reported, since discordance with absolute values may lead to misinterpretation of CBC data. Current Interpretive Data was last revised on 2017. Blood 06/08/2022 8:08 PM CDT 06/08/2022 8:30 PM CDT Catherine Adams MD LAB BLOOD ORDERABLES Final Result [facility] Department [place] [address] * (ABNORMAL) Blood gas, arterial (06/08/2022 8:08 PM CDT) pH, Art 7.44 7.35 - 7.45 [facility] PCO2, Arterial 36 35 - 45 mmHg [facility] PO2, Arterial 140(H) 83 - 108 mmHg [facility] HCO3 Art (Calculated) 25 20 - 30 mmol/L [facility] BE, art 0 mmol/L [facility] Comment: Interpretive Data No Reference Range Established Current Interpretive Data was last revised on 2017 O2 Sat Art (Measured) 99(H) 90 - 95 % [facility] Blood 06/08/2022 8:08 PM CDT 06/08/2022 8:15 PM CDT Marcelina Lo HEEL EMERY BUFFER LAB BLOOD ORDERABLES Final Re sult Performing Organization Address City/[facility] Co de Phone Number [facility] [place] [address] * (ABNORMAL) Hemoglobin total, pulmonary artery (06/08/2022 8:08 PM CDT) [facility] Hemoglobin total, PA 8.7(L) 13.0 - 17.5 g/dL [facility] Blood 06/08/2022 8:08 PM CDT 06/08/2022 8:15 PM CDT Marcelina Lo HEEL EMERY BUFFER LAB BLOOD ORDERABLES Final Re sult Performing Organization Address [facility] Co de Phone Number [facility] [place] [address] * Oxyhemoglobin, pulmonary artery (06/08/2022 8:08 PM CDT) [facility] Oxyhemoglobin, PA 69.9 % [facility] Comment: Interpretive Data No reference range established. Current interpretive data was last revised 2019. Blood 06/08/2022 8:08 PM CDT 06/08/2022 8:15 PM CDT Marcelina Lo HEEL EMERY BUFFER LAB BLOOD ORDERABLES Final Re sult Performing Organization Address City/[facility] Co de Phone Number [facility] [place] [address] * Respiratory pathogen panel Nasopharyngeal (06/08/2022 8:08 PM CDT) [facility] Influenza A RNA Not Detected Not Detected [facility] Influenza B RNA Not Detected Not Detected [facility] RSV RNA Not Detected Not Detected [facility] COVID-19 RNA Not Detected Not Detected [facility] Coronavirus 229E RNA Not Detected Not Detected [facility] Coronavirus HKU1 RNA Not Detected Not Detected [facility] Coronavirus NL63 RNA Not Detected Not Detected [facility] Coronavirus OC43 RNA Not Detected Not Detected [facility] Adenovirus DNA Not Detected Not Detected [facility] Metapneumovirus RNA Not Detected Not Detected [facility] Rhinovirus/Enterov irus RNA Not Detected Not Detected [facility] Parainfluenza 1 RNA Not Detected Not Detected [facility] Parainfluenza 2 RNA Not Detected Not Detected [facility] Parainfluenza 3 RNA Not Detected Not Detected [facility] Parainfluenza 4 RNA Not Detected Not Detected [facility] B. pertussis DNA Not Detected Not Detected [facility] B. parapertussis DNA Not Detected Not Detected [facility] C. pneumoniae DNA Not Detected Not Detected [facility] M. pneumoniae DNA Not Detected Not Detected [facility] Nasopharyngeal 06/08/2022 8: 08 PM CDT 06/08/2022 9:19 PM CDT Narrative [facility] - 06/08/2022 10:13 PM CDT Previously covid negative Is the Patient experiencing symptoms consistent with COVID?->Unknown Reason for testing?->Patient history unknown Surveillance testing for transplant patient?->No ??Interpretive Data The [employer] Film[employer] Respiratory Panel (RP2.1) assay is a [...] assay has FDA clearance for testing of HEEL EMERY BUFFER swabs. ??The performance of additional specimen types has been assessed by the performing laboratory. ??The performance characteristics of this assay have been determined by [facility]. Current interpretive data was last revised on 22. us Catherine Adams MD LAB MICROBIOLOGY - GENERAL ORDERABLES Final Result Performing Organization Address City/[facility]/ZIP Co de Phone Number [facility] Department [place] [address] * Beta-hydroxybutyrate (06/08/2022 8:08 PM CDT) Beta-Hydroxybut yrate 0.3 0.0 - 0.5 mmol/L [facility] Blood 06/08/2022 8:08 PM CDT 06/08/2022 8:15 PM CDT us Marcelina Lo HEEL EMERY BUFFER LAB BLOOD ORDERABLES Final Re sult Performing Organization Address City/[facility]/ZIP Co de Phone Number [facility] Department [place] [address] * (ABNORMAL) Lactate dehydrogenase (LD) (06/08/2022 8:08 PM CDT) Lactate dehydrogenase (LDH) 444(H) 100 - 250 Units/L [facility] Blood 06/08/2022 8:08 PM CDT 06/08/2022 8:31 PM CDT Catherine Adams MD LAB BLOOD ORDERABLES Final Result [facility] Department [place] [address] * (ABNORMAL) Comprehensive metabolic panel (06/08/2022 8:08 PM CDT) Pathologist [facility] Sodium 136 135 - 145 mmol/L [facility] Potassium, pl 4.3 3.3 - 4.9 mmol/L [facility] Chloride 100 97 - 110 mmol/L [facility] CO2 27 22 - 32 mmol/L [facility] Anion gap 9 2 - 15 mmol/L [facility] BUN 42(H) 8 - 25 mg/dL [facility] Creatinine 4.73(H) 0.80 - 1.30 mg/dL [facility] Glucose 146 70 - 199 mg/dL [facility] Comment: Interpretive Data Fasting glucose >/= [...] 2017. Calcium 8.4(L) 8.5 - 10.3 mg/dL [facility] Bilirubin, total 0.5 0.1 - 1.2 mg/dL [facility] Protein, pl 5.8(L) 6.5 - 8.5 g/dL [facility] Albumin 2.8(L) 3.5 - 5.0 g/dL [facility] Alk phos 153(H) 40 - 130 Units/L [facility] ALT 40 7 - 55 Units/L [facility] AST 137(H) 10 - 50 Units/L [facility] Blood 06/08/2022 8:08 PM CDT 06/08/2022 8:31 PM CDT us Conrad Weston Chi, MD LAB BLOOD ORDERABLES Ann Marie l Result [facility] Department [place] [address] * (ABNORMAL) CBC with auto differential (06/08/2022 8:08 PM CDT) [facility] WBC 9.3 3.8 - 9.9 K/cumm [facility] Hgb 6.9(L) 13.0 - 17.5 g/dL [facility] Hct 19.9(L) 38.9 - 50.3 % [facility] Plt 207 150 - 400 K/cumm [facility] MPV 11.2 9.1 - 12.3 fL [facility] RBC 2.20(L) 4.30 - 5.80 M/cumm [facility] MCV 90.5 81.3 - 96.4 fL [facility] MCH 31.4 27.1 - 33.3 pg [facility] MCHC 34.7 32.3 - 35.7 g/dL [facility] RDW CV 13.5 11.1 - 14.9 % [facility] RDW SD 44.4 35.7 - 48.1 fL [facility] NRBC abs 0.00 0.00 - 0.01 K/cumm [facility] Blood 06/08/2022 8:08 PM CDT 06/08/2022 8:30 PM CDT Marcelina Lo NP LAB BLOOD ORDERABLES [place] [address] * POCT glucose (06/08/2022 8:04 PM CDT) Glucose, POC 153 70 - 199 mg/dL [facility] Blood 06/08/2022 8:04 PM CDT 06/08/2022 8:04 PM CDT Catherine Adams MD LAB POCT ORDERABLES - [place] [address] * POCT glucose (06/08/2022 8:03 PM CDT) Glucose, POC 162 70 - 199 mg/dL [facility] Blood 06/08/2022 8:03 PM CDT 06/08/2022 8:03 PM CDT Catherine Adams MD LAB POCT ORDERABLES - [place] [address] * POCT glucose (06/08/2022 4:20 PM CDT) Glucose, POC 135 70 - 199 mg/dL [facility] Blood 06/08/2022 4:20 PM CDT 06/08/2022 4:20 PM CDT Catherine Adams MD LAB POCT ORDERABLES - DEVIC E Final Result [facility] [place] [address] * Lactate, whole blood (06/08/2022 4:20 PM CDT) Pathologist [facility] Lactate, bld 1.2 0.7 - 2.0 mmol/L [facility] Blood 06/08/2022 4:20 PM CDT 06/08/2022 4:44 PM CDT Marcelina Lo HEEL EMERY BUFFER LAB BLOOD ORDERABLES Final Re sult Performing Organization Address [facility] Co de Phone Number [facility] Department [place] [address] * (ABNORMAL) aPTT (06/08/2022 4:20 PM CDT) [facility] aPTT 25(L) 27 - 37 sec [facility] Comment: Interpretive Data Therapeutic heparin range: 60.0 - 94.0 seconds. Based on correlation with therapeutic heparin activity range of 0.3-0.7 Units/mL. Current interpretive data was last revised on 2020. Blood 06/08/2022 4:20 PM CDT 06/08/2022 4:56 PM CDT Narrative [facility] - 06/08/2022 5:12 PM CDT Draw [...] Ann Marie l Result Performing Organization Address [facility] Co de Phone Number [facility] Department [place] [address] * (ABNORMAL) Hemoglobin total, pulmonary artery (06/08/2022 4:20 PM CDT) [facility] Hemoglobin total, PA 8.4(L) 13.0 - 17.5 g/dL [facility] Blood 06/08/2022 4:20 PM CDT 06/08/2022 4:44 PM CDT Marcelina Lo HEEL EMERY BUFFER LAB BLOOD ORDERABLES Final Re sult Performing Organization Address [facility] Co de Phone Number [facility] [place] [address] * (ABNORMAL) Blood gas, arterial (06/08/2022 4:20 PM CDT) pH, Art 7.44 7.35 - 7.45 [facility] PCO2, Arterial 36 35 - 45 mmHg [facility] PO2, Arterial 156(H) 83 - 108 mmHg [facility] HCO3 Art (Calculated) 25 20 - 30 mmol/L [facility] BE, art 0 mmol/L [facility] Comment: Interpretive Data No Reference Range Established Current Interpretive Data was last revised on 2017 O2 Sat Art (Measured) 98(H) 90 - 95 % [facility] Blood 06/08/2022 4:20 PM CDT 06/08/2022 4:44 PM CDT Marcelina Lo HEEL EMERY BUFFER LAB BLOOD ORDERABLES Final Re sult Performing Organization Address [facility] de Phone Number [facility] [place] [address] * Oxyhemoglobin, pulmonary artery (06/08/2022 4:20 PM CDT) Pathologist [facility] Oxyhemoglobin, PA 63.1 % [facility] Comment: Interpretive Data No reference range established. Current interpretive data was last revised 2019. Blood 06/08/2022 4:20 PM CDT 06/08/2022 4:44 PM CDT Marcelina Lo HEEL EMERY BUFFER LAB BLOOD ORDERABLES Final Re sult Performing Organization Address [facility] Co de Phone Number [facility] [place] [address] * TRANSTHORACIC ECHO (TTE) COMPLETE W DOPPLER/CF W CONTRAST (06/08/2022 2:50 PM CDT) LV EF 56 % CARDIOREPORT Anatomical Region Laterality Modality Ultrasound 06/08/2022 12:3 0 PM CDT Narrative 06/08/2022 4:00 PM CDT Patient name: Adelia Garvin Date of test: 06/08/2022 Type of test: TTE w/Doppler Hospital #: [id number] Date of : 1970 () Marine Service Manager: Elil Larsen RDCS Referring Physician: CATHERINE ADAMS MD Contrast Agent: Contrast Administered by: Supervised/Interpreted by: Baldomero Foster MD Diagnosis: Location: [facility] Reason for test: HF with impella [...] 2=Hypo 3=Akinetic 4=Dyskin./Aneurysm 0=Not visualized) Parasternal [place]:MAS=2 BAS=1 MIL=1 IVETH=1 Parasternal [place]:MAS=2 MIS=1 [place]=1 MIL=1 MAL=2 MA=1 Apical 4 Chambers:=1 MIS=1 BIS=1 BAL=1 MAL=2 AL=2 AC=2 Apical 2 Chambers:AI=1 [place]=1 BI=1 BA=1 MA=1 AA=1 AC=2 LV Global [...] in anterior wall and anterior septem sugegsting CAD/[place] in the LAD territory. LVEF ??is in [...] MD By signing this report, the attending membership assistant certifies that he or she has personally supervised and interpreted the echocardiogram and has reviewed and or edited and agrees with the written comments contained within the report. Procedure Note Baldomero Foster MD - 06/08/2022 Patient name: Adelia Garvin Date of test: 06/08/2022 Type of test: TTE w/Doppler [facility] #: 0 Date of : 1970 (M) Marine Service Manager: Elli Larsen RDCS Referring Physician: CATHERINE ADAMS MD Contrast Agent: Contrast Administered by: Supervised/Interpreted by: Baldomero Foster MD Diagnosis: Location: [facility] Reason for test: HF with impella [...] 2=Hypo 3=Akinetic 4=Dyskin./Aneurysm 0=Not visualized) Parasternal [place]:MAS=2 BAS=1 MIL=1 IVETH=1 Parasternal [place]:MAS=2 MIS=1 [place]=1 MIL=1 MAL=2 MA=1 Apical 4 Chambers:=1 MIS=1 BIS=1 BAL=1 MAL=2 AL=2 AC=2 Apical 2 Chambers:AI=1 [place]=1 BI=1 BA=1 MA=1 AA=1 AC=2 LV Global [...] in anterior wall and anterior septem sugegsting CAD/[place] in the LAD territory. LVEF is in [...] MD By signing this report, the attending membership assistant certifies that he or she has personally [...] vena cava. There is an inferior approach [place] catheter with tip overlying the right main pulmonary artery. An Impella device is present. A gastric tube courses below the inferior margin of the study. The inferior mediastinum and the entire left hemidiaphragm are excluded from the [id number]. The imaged cardiomediastinal silhouette appears stable. There are unchanged left greater than right diffuse interstitial and airspace opacities compatible with asymmetric moderate pulmonary edema. There is likely persistent left basilar atelectasis. No right pleural effusion. The left costophrenic angle is excluded. No pneumothorax. Dictated by: eJrsey Morales MD The radiology attending physician has [...] vena cava. There is an inferior approach [place]iv catheter with tip overlying the right main pulmonary artery. An Impella device is present. A gastric tube courses below the inferior margin of the study. The inferior mediastinum and the entire left hemidiaphragm are excluded from the [id number]. The imaged cardiomediastinal silhouette appears stable. There [...] Potassium, whole blood (06/08/2022 11:49 AM CDT) [facility] Potassium, bld 4.1 3.3 - 4.9 mmol/L [facility] Blood 06/08/2022 11:4 9 AM CDT 06/08/2022 12:18 PM CDT Marcelina Lo HEEL EMERY BUFFER LAB BLOOD ORDERABLES Final Re sult Performing Organization Address [facility] Co de Phone Number [facility] [place] [address] * (ABNORMAL) Hemoglobin total, pulmonary artery (06/08/2022 11:49 AM CDT) Hemoglobin total, PA 8.4(L) 13.0 - 17.5 g/dL [facility] Blood 06/08/2022 11:4 9 AM CDT 06/08/2022 12:18 PM CDT Marcelina Lo HEEL EMERY BUFFER LAB BLOOD ORDERABLES Final Re sult Performing Organization Address [facility] de Phone Number [facility] [place] [address] * Oxyhemoglobin, pulmonary artery (06/08/2022 11:49 AM CDT) Oxyhemoglobin, PA 63.8 % [facility] Comment: Interpretive Data No reference range established. Current interpretive data was last revised 2019. Blood 06/08/2022 11:4 9 AM CDT 06/08/2022 12:18 PM CDT Marcelina Lo HEEL EMERY BUFFER LAB BLOOD ORDERABLES Final Re sult Performing Organization Address [facility] Co de Phone Number [facility] [place] [address] * POCT glucose (06/08/2022 11:46 AM CDT) Glucose, POC 140 70 - 199 mg/dL [facility] Blood 06/08/2022 11:4 6 AM CDT 06/08/2022 11:46 AM CDT Catherine Adams MD LAB POCT ORDERABLES - DEVIC E Final Result Performing Organization Address [facility] Co de Phone Number [facility] Department [place] [address] * (ABNORMAL) Blood gas, arterial (06/08/2022 10:44 AM CDT) pH, Art 7.44 7.35 - 7.45 [facility] PCO2, Arterial 34(L) 35 - 45 mmHg [facility] PO2, Arterial 108 83 - 108 mmHg [facility] HCO3 Art (Calculated) 24 20 - 30 mmol/L [facility] BE, art 0 mmol/L [facility] Comment: Interpretive Data No Reference Range Established Current Interpretive Data was last revised on 2017 O2 Sat Art (Measured) 98(H) 90 - 95 % [facility] Blood 06/08/2022 10:4 4 AM CDT 06/08/2022 10:58 AM CDT us Marcelina Lo NP LAB BLOOD ORDERABLES Final Re sult Performing Organization Address City/[facility]/ZIP Co de Phone Number [facility] Department [place] [address] * POCT glucose (06/08/2022 8:31 AM CDT) Glucose, POC 160 70 - 199 mg/dL [facility] Blood 06/08/2022 8:31 AM CDT 06/08/2022 8:31 AM CDT us Catherine Adams MD LAB POCT ORDERABLES - DEVIC E Final Result [facility] [place] [address] * (ABNORMAL) Blood gas, arterial (06/08/2022 7:57 AM CDT) pH, Art 7.40 7.35 - 7.45 [facility] PCO2, Arterial 38 35 - 45 mmHg [facility] PO2, Arterial 99 83 - 108 mmHg [facility] HCO3 Art (Calculated) 25 20 - 30 mmol/L [facility] BE, art 0 mmol/L [facility] Comment: Interpretive Data No Reference Range Established Current Interpretive Data was last revised on 2017 O2 Sat Art (Measured) 97(H) 90 - 95 % [facility] Blood 06/08/2022 7:57 AM CDT 06/08/2022 8:22 AM CDT Marcelina Lo HEEL EMERY BUFFER LAB BLOOD ORDERABLES Final Re sult Performing Organization Address City/[facility] Co de Phone Number [facility] [place] [address] * (ABNORMAL) Hemoglobin total, pulmonary artery (06/08/2022 7:57 AM CDT) Hemoglobin total, PA 8.8(L) 13.0 - 17.5 g/dL [facility] Blood 06/08/2022 7:57 AM CDT 06/08/2022 8:22 AM CDT Marcelina Lo HEEL EMERY BUFFER LAB BLOOD ORDERABLES Final Re sult Performing Organization Address [facility] Co de Phone Number [facility] [place] [address] * Oxyhemoglobin, pulmonary artery (06/08/2022 7:57 AM CDT) Oxyhemoglobin, PA 65.7 % [facility] Comment: Interpretive Data No reference range established. Current interpretive data was last revised 2019. Blood 06/08/2022 7:57 AM CDT 06/08/2022 8:22 AM CDT us Marcelnia Lo HEEL EMERY BUFFER LAB BLOOD ORDERABLES Final Re sult Performing Organization Address City/[facility]/ZIP Co de Phone Number [facility] Department of Laboratories [place], [place] [address] * X-ray chest 1 view - Portable [...] Impella device. There is an inferior approach [place]iv catheter with tip overlying the proximal right [...] Impella device. There is an inferior approach [place]vi catheter with tip overlying the proximal right [...] POC 157 70 - 199 mg/dL [facility] Blood 06/08/2022 6:29 AM CDT 06/08/2022 6:29 AM CDT us Catherine Adams MD LAB POCT ORDERABLES - DEVIC E Final Result Performing Organization Address [facility]/ZIP Co de Phone Number [facility] Department [place] [address] * POCT glucose (06/08/2022 5:26 AM CDT) Glucose, POC 121 70 - 199 mg/dL [facility] Blood 06/08/2022 5:26 AM CDT 06/08/2022 5:26 AM CDT us Catherine Adams MD LAB POCT ORDERABLES - DEVIC E Final Result Performing Organization Address [facility] Co de Phone Number [facility] Department [place] [address] * POCT glucose (06/08/2022 4:16 AM CDT) Pathologist [facility] Glucose, POC 111 70 - 199 mg/dL [facility] Blood 06/08/2022 4:16 AM CDT 06/08/2022 4:16 AM CDT Catherine Adams MD LAB POCT ORDERABLES - DEVIC E Final Result [facility] Department [place] [address] * (ABNORMAL) eGFR (06/08/2022 4:12 AM CDT) [facility] eGFR 8(L) 90 - 130 mL/min/1. 73 m2 [facility] Comment: Interpretive Data Reference Interval Normal [...] BLOOD ORDERABLES Final Result Performing Organization Address [facility] de Phone Number [facility] [place] [address] * (ABNORMAL) Hemoglobin total, pulmonary artery (06/08/2022 4:12 AM CDT) Hemoglobin total, PA 8.6(L) 13.0 - 17.5 g/dL [facility] Blood 06/08/2022 4:12 AM CDT 06/08/2022 4:30 AM CDT Marcelina Lo HEEL EMERY BUFFER LAB BLOOD ORDERABLES Final Re sult Performing Organization Address [facility] de Phone Number [facility] [place] [address] * (ABNORMAL) Blood gas, arterial (06/08/2022 4:12 AM CDT) pH, Art 7.41 7.35 - 7.45 [facility] PCO2, Arterial 37 35 - 45 mmHg [facility] PO2, Arterial 57(L) 83 - 108 mmHg [facility] HCO3 Art (Calculated) 24 20 - 30 mmol/L [facility] BE, art -1 mmol/L [facility] Comment: Interpretive Data No Reference Range Established Current Interpretive Data was last revised on 2017 O2 Sat Art (Measured) 88(L) 90 - 95 % [facility] Blood 06/08/2022 4:12 AM CDT 06/08/2022 4:30 AM CDT Marcelina Lo HEEL EMERY BUFFER LAB BLOOD ORDERABLES Final Re sult Performing Organization Address [facility] de Phone Number [facility] [place] [address] * Oxyhemoglobin, pulmonary artery (06/08/2022 4:12 AM CDT) [facility] Oxyhemoglobin, PA 66.9 % [facility] Comment: Interpretive Data No reference range established. Current interpretive data was last revised 2019. Blood 06/08/2022 4:12 AM CDT 06/08/2022 4:30 AM CDT us Marcelina Lo NP LAB BLOOD ORDERABLES Final Re sult Performing Organization Address City/[facility]/ZIP Co de Phone Number [facility] [place] [address] * Magnesium (06/08/2022 4:12 AM CDT) [facility] Magnesium 2.3 1.4 - 2.5 mg/dL [facility] Blood 06/08/2022 4:12 AM CDT 06/08/2022 4:38 AM CDT Catherine Adams MD LAB BLOOD ORDERABLES Final Result Performing Organization Address City/[facility]/ZIP Co de Phone Number [facility] [place] [address] * (ABNORMAL) Basic metabolic panel (06/08/2022 4:12 AM CDT) [facility] Sodium 135 135 - 145 mmol/L [facility] Potassium, pl 4.0 3.3 - 4.9 mmol/L [facility] Chloride 99 97 - 110 mmol/L [facility] CO2 26 22 - 32 mmol/L [facility] Anion gap 10 2 - 15 mmol/L [facility] BUN 67(H) 8 - 25 mg/dL [facility] Creatinine 7.65(H) 0.80 - 1.30 mg/dL [facility] Glucose 109 70 - 199 mg/dL [facility] Comment: Interpretive Data Fasting glucose >/= [...] 2017. Calcium 8.2(L) 8.5 - 10.3 mg/dL [facility] Blood 06/08/2022 4:12 AM CDT 06/08/2022 4:38 AM CDT Catherine Adams MD LAB BLOOD ORDERABLES Final Result Performing Organization Address [facility] de Phone Number [facility] Department [place] [address] * POCT glucose (06/08/2022 3:00 AM CDT) Pathologist [facility] Glucose, POC 135 70 - 199 mg/dL [facility] Blood 06/08/2022 3:00 AM CDT 06/08/2022 3:00 AM CDT Catherine Adams MD LAB POCT ORDERABLES - DEVIC E Final Result Performing Organization Address City/[facility] de Phone Number [facility] Department [place] [address] * (ABNORMAL) Differential, auto (06/08/2022 2:14 AM CDT) Neutrophil abs 8.2(H) 1.7 - 6.5 K/cumm [facility] Imm gran abs 0.4(H) 0.0 - 0.1 K/cumm [facility] Lymphocyte abs 0.5(L) 0.8 - 3.3 K/cumm [facility] Monocyte abs 1.0(H) 0.2 - 0.8 K/cumm [facility] Eosinophil abs 0.0 0.0 - 0.5 K/cumm [facility] Basophil abs 0.0 0.0 - 0.1 K/cumm [facility] Neutrophil pct 81.0 % [facility] Comment: Interpretive Data Percent cell count reference ranges are not reported, since discordance with absolute values may lead to misinterpretation of CBC data. Current Interpretive Data was last revised on 2017. Imm gran pct 3.8 % [facility] Comment: Interpretive Data Percent cell count reference ranges are not reported, since discordance with absolute values may lead to misinterpretation of CBC data. Current Interpretive Data was last revised on 2017. Lymphocyte pct 5.0 % [facility] Comment: Interpretive Data Percent cell count reference ranges are not reported, since discordance with absolute values may lead to misinterpretation of CBC data. Current Interpretive Data was last revised on 2017. Monocyte pct 10.1 % [facility] Comment: Interpretive Data Percent cell count reference ranges are not reported, since discordance with absolute values may lead to misinterpretation of CBC data. Current Interpretive Data was last revised on 2017. Eosinophil pct 0.0 % [facility] Comment: Interpretive Data Percent cell count reference ranges are not reported, since discordance with absolute values may lead to misinterpretation of CBC data. Current Interpretive Data was last revised on 2017. Basophil pct 0.1 % [facility] Comment: Interpretive Data Percent cell count reference ranges are not reported, since discordance with absolute values may lead to misinterpretation of CBC data. Current Interpretive Data was last revised on 2017. Blood 06/08/2022 2:14 AM CDT 06/08/2022 4:38 AM CDT us Catherine Adams MD LAB BLOOD ORDERABLES Final Result [facility] Department [place] [address] * POCT glucose (06/08/2022 2:14 AM CDT) Glucose, POC 141 70 - 199 mg/dL [facility] Blood 06/08/2022 2:14 AM CDT 06/08/2022 2:14 AM CDT Catherine Adams MD LAB POCT ORDERABLES - DEVIC E Final Result Performing Organization Address City/[facility]/ZIP Co de Phone Number [facility] Department [place] [address] * Potassium, whole blood (06/08/2022 2:14 AM CDT) Pathologist [facility] Potassium, bld 4.0 3.3 - 4.9 mmol/L [facility] Blood 06/08/2022 2:14 AM CDT 06/08/2022 2:22 AM CDT Marcelina Lo HEEL EMERY BUFFER LAB BLOOD ORDERABLES Final Re sult Performing Organization Address [facility] Co de Phone Number [facility] [place] [address] * (ABNORMAL) Blood gas, arterial (06/08/2022 2:14 AM CDT) pH, Art 7.45 7.35 - 7.45 [facility] PCO2, Arterial 33(L) 35 - 45 mmHg [facility] PO2, Arterial 180(H) 83 - 108 mmHg [facility] HCO3 Art (Calculated) 24 20 - 30 mmol/L [facility] BE, art -1 mmol/L [facility] Comment: Interpretive Data No Reference Range Established Current Interpretive Data was last revised on 2017 O2 Sat Art (Measured) 98(H) 90 - 95 % [facility] Blood 06/08/2022 2:14 AM CDT 06/08/2022 2:22 AM CDT Marcelina Lo HEEL EMERY BUFFER LAB BLOOD ORDERABLES Final Re sult Performing Organization Address [facility] Co de Phone Number [facility] [place] [address] * (ABNORMAL) CBC with auto differential (06/08/2022 2:14 AM CDT) WBC 10.1(H) 3.8 - 9.9 K/cumm [facility] Hgb 8.3(L) 13.0 - 17.5 g/dL [facility] Hct 23.1(L) 38.9 - 50.3 % [facility] Plt 218 150 - 400 K/cumm [facility] MPV 11.1 9.1 - 12.3 fL [facility] RBC 2.60(L) 4.30 - 5.80 M/cumm [facility] MCV 88.8 81.3 - 96.4 fL [facility] MCH 31.9 27.1 - 33.3 pg [facility] MCHC 35.9(H) 32.3 - 35.7 g/dL [facility] RDW CV 13.3 11.1 - 14.9 % [facility] RDW SD 43.1 35.7 - 48.1 fL [facility] NRBC abs 0.00 0.00 - 0.01 K/cumm [facility] Blood 06/08/2022 2:14 AM CDT 06/08/2022 4:38 AM CDT Marcelina Lo HEEL EMERY BUFFER LAB BLOOD ORDERABLES Final Re sult [facility] Department [place] [address] * POCT glucose (06/08/2022 1:13 AM CDT) Glucose, POC 151 70 - 199 mg/dL [facility] Blood 06/08/2022 1:13 AM CDT 06/08/2022 1:13 AM CDT us Catherine Adams MD LAB POCT ORDERABLES - DEVIC E Final Result Performing Organization Address [facility] de Phone Number [facility] Department [place] [address] * (ABNORMAL) Blood gas, arterial (06/08/2022 12:30 AM CDT) Pathologist [facility] pH, Art 7.50(H) 7.35 - 7.45 [facility] PCO2, Arterial 28(L) 35 - 45 mmHg [facility] PO2, Arterial 144(H) 83 - 108 mmHg [facility] HCO3 Art (Calculated) 22 20 - 30 mmol/L [facility] BE, art 0 mmol/L [facility] Comment: Interpretive Data No Reference Range Established Current Interpretive Data was last revised on 2017 O2 Sat Art (Measured) 98(H) 90 - 95 % [facility] Blood 06/08/2022 12:3 0 AM CDT 06/08/2022 12:39 AM CDT us Marcelina Lo HEEL EMERY BUFFER LAB BLOOD ORDERABLES Final Re sult Performing Organization Address [facility] de Phone Number [facility] Department [place] [address] * (ABNORMAL) eGFR (06/08/2022 12:28 AM CDT) Pathologist [facility] eGFR 7(L) 90 - 130 mL/min/1. 73 m2 [facility] Comment: Interpretive Data Reference Interval Normal [...] BLOOD ORDERABLES Final Result Performing Organization Address City/[facility]/ZIP Co de Phone Number [facility] Department [place] [address] * (ABNORMAL) Hemoglobin total, pulmonary artery (06/08/2022 12:28 AM CDT) Hemoglobin total, PA 9.0(L) 13.0 - 17.5 g/dL [facility] Blood 06/08/2022 12:2 8 AM CDT 06/08/2022 12:39 AM CDT us Marcelina Lo NP LAB BLOOD ORDERABLES Final Re sult Performing Organization Address City/[facility]/ZIP Co de Phone Number [facility] Department [place] [address] * Oxyhemoglobin, pulmonary artery (06/08/2022 12:28 AM CDT) Oxyhemoglobin, PA 59.2 % [facility] Comment: Interpretive Data No reference range established. Current interpretive data was last revised 2019. Blood 06/08/2022 12:2 8 AM CDT 06/08/2022 12:39 AM CDT us Marcelina Lo NP LAB BLOOD ORDERABLES Final Re sult Performing Organization Address City/[facility]/ZIP Co de Phone Number [facility] [place] [address] * Potassium, whole blood (06/08/2022 12:28 AM CDT) Potassium, bld 3.5 3.3 - 4.9 mmol/L [facility] Blood 06/08/2022 12:2 8 AM CDT 06/08/2022 12:39 AM CDT Catherine Adams MD LAB BLOOD ORDERABLES Final Result Performing Organization Address [facility] Co de Phone Number [facility] [place] [address] * Magnesium (06/08/2022 12:28 AM CDT) Magnesium 2.2 1.4 - 2.5 mg/dL [facility] Blood 06/08/2022 12:2 8 AM CDT 06/08/2022 12:42 AM CDT Catherine Adams MD LAB BLOOD ORDERABLES Final Result Performing Organization Address City/[facility] Co de Phone Number [facility] [place] [address] * Beta-hydroxybutyrate (06/08/2022 12:28 AM CDT) Beta-Hydroxybut yrate 0.1 0.0 - 0.5 mmol/L [facility] Blood 06/08/2022 12:2 8 AM CDT 06/08/2022 12:39 AM CDT Catherine Adams MD LAB BLOOD ORDERABLES Edited Result - Final [facility] Department [place] [address] * (ABNORMAL) Basic metabolic panel (06/08/2022 12:28 AM CDT) [facility] Sodium 135 135 - 145 mmol/L [facility] Potassium, pl 3.5 3.3 - 4.9 mmol/L [facility] Chloride 96(L) 97 - 110 mmol/L [facility] CO2 23 22 - 32 mmol/L [facility] Anion gap 16(H) 2 - 15 mmol/L [facility] BUN 69(H) 8 - 25 mg/dL [facility] Creatinine 8.46(H) 0.80 - 1.30 mg/dL [facility] Glucose 147 70 - 199 mg/dL [facility] Comment: Interpretive Data Fasting glucose >/= [...] 2017. Calcium 7.8(L) 8.5 - 10.3 mg/dL [facility] Blood 06/08/2022 12:2 8 AM CDT 06/08/2022 12:42 AM CDT Catherine Adams MD LAB BLOOD ORDERABLES Final Result Performing Organization Address City/[facility]/ZIP Co de Phone Number [facility] Department [place] [address] * POCT glucose (06/08/2022 12:09 AM CDT) Glucose, POC 169 70 - 199 mg/dL [facility] Blood 06/08/2022 12:0 9 AM CDT 06/08/2022 12:09 AM CDT us Catherine Adams MD LAB POCT ORDERABLES - DEVIC E Final Result [facility] Department [place] [address] * (ABNORMAL) eGFR (06/07/2022 10:58 PM CDT) eGFR 7(L) 90 - 130 mL/min/1. 73 m2 [facility] Comment: Interpretive Data Reference Interval Normal [...] BLOOD ORDERABLES Final Result Performing Organization Address [facility] Co de Phone Number [facility] [place] [address] * (ABNORMAL) POCT glucose (06/07/2022 10:58 PM CDT) Glucose, POC 211(H) 70 - 199 mg/dL [facility] Blood 06/07/2022 10:5 8 PM CDT 06/07/2022 10:58 PM CDT Catherine Adams MD LAB POCT ORDERABLES - DEVIC E Final Result Performing Organization Address [facility] Co de Phone Number [facility] Department [place] [address] * Lactate, whole blood (06/07/2022 10:58 PM CDT) Lactate, bld 1.8 0.7 - 2.0 mmol/L [facility] Blood 06/07/2022 10:5 8 PM CDT 06/07/2022 11:05 PM CDT Catherine Adams MD LAB BLOOD ORDERABLES Final Result Performing Organization Address [facility] Co de Phone Number [facility] Department [place] [address] * Potassium, whole blood (06/07/2022 10:58 PM CDT) Potassium, bld 3.4 3.3 - 4.9 mmol/L [facility] Blood 06/07/2022 10:5 8 PM CDT 06/07/2022 11:05 PM CDT Catherine Adams MD LAB BLOOD ORDERABLES Final Result Performing Organization Address [facility] Co de Phone Number [facility] [place] [address] * (ABNORMAL) Phosphorus (06/07/2022 10:58 PM CDT) Phosphorus, pl 4.7(H) 2.3 - 4.5 mg/dL [facility] Comment:Reviewed Blood 06/07/2022 10:5 8 PM CDT 06/07/2022 11:20 PM CDT Catherine Adams MD LAB BLOOD ORDERABLES Final Result Performing Organization Address [facility] de Phone Number [facility] [place] [address] * Magnesium (06/07/2022 10:58 PM CDT) Magnesium 2.2 1.4 - 2.5 mg/dL [facility] Blood 06/07/2022 10:5 8 PM CDT 06/07/2022 11:20 PM CDT Catherine Adams MD LAB BLOOD ORDERABLES Final Result Performing Organization Address [facility] de Phone Number [facility] [place] [address] * Beta-hydroxybutyrate (06/07/2022 10:58 PM CDT) Beta-Hydroxybut yrate 0.1 0.0 - 0.5 mmol/L [facility] Blood 06/07/2022 10:5 8 PM CDT 06/07/2022 11:05 PM CDT Catherine Adams MD LAB BLOOD ORDERABLES Final Result Performing Organization Address City/[facility] Co de Phone Number [facility] Department [place] [address] * (ABNORMAL) Basic metabolic panel (06/07/2022 10:58 PM CDT) Sodium 134(L) 135 - 145 mmol/L [facility] Potassium, pl 3.4 3.3 - 4.9 mmol/L [facility] Chloride 95(L) 97 - 110 mmol/L [facility] CO2 23 22 - 32 mmol/L [facility] Anion gap 16(H) 2 - 15 mmol/L [facility] BUN 75(H) 8 - 25 mg/dL [facility] Creatinine 8.92(H) 0.80 - 1.30 mg/dL [facility] Glucose 187 70 - 199 mg/dL [facility] Comment: Interpretive Data Fasting glucose >/= [...] 2017. Calcium 8.1(L) 8.5 - 10.3 mg/dL [facility] Blood 06/07/2022 10:5 8 PM CDT 06/07/2022 11:20 PM CDT us Catherine Adams MD LAB BLOOD ORDERABLES Final Result [facility] Department [place] [address] * (ABNORMAL) Blood gas, arterial (06/07/2022 10:58 PM CDT) pH, Art 7.46(H) 7.35 - 7.45 [facility] PCO2, Arterial 31(L) 35 - 45 mmHg [facility] PO2, Arterial 73(L) 83 - 108 mmHg [facility] HCO3 Art (Calculated) 22 20 - 30 mmol/L [facility] BE, art -2 mmol/L [facility] Comment: Interpretive Data No Reference Range Established Current Interpretive Data was last revised on 2017 O2 Sat Art (Measured) 95 90 - 95 % [facility] Blood 06/07/2022 10:5 8 PM CDT 06/07/2022 11:05 PM CDT us Marcelina Lo HEEL EMERY BUFFER LAB BLOOD ORDERABLES Final Re sult [facility] Department [place] [address] * [place] ARTL CATHJ/CANNULJ MNTR/TRANSFUSION SPX PRQ (06/07/2022 10:17 PM CDT) Narrative Eric Reed MD - 06/07/2022 10:17 PM CDT Lavern Morrison MD ? 06/07/2022 10:29 PM Arterial Line Insertion Date/Time: 06/07/2022 10:17 PM Performed by: Lavern Morrison MD Authorized by: Lavern Morrison MD [place] Protocol: RN Notified of Procedure: yes ?? [...] matched to patient identification: n/a ?? Responsible republican for transporting specimen(s) to lab determined: n/a ?? Lavern Morrison MD IV THERAPY ORDERABLES Final Result * (ABNORMAL) POCT glucose (06/07/2022 9:58 PM CDT) Glucose, POC 249(H) 70 - 199 mg/dL [facility] Blood 06/07/2022 9:58 PM CDT 06/07/2022 9:58 PM CDT Catherine Adams MD LAB POCT ORDERABLES - DEVIC E Final Result [facility] Department [place] [address] * XR Abdomen Ap 1 Vw (06/07/2022 [...] Retics, absolute 0.052 0.020 - 0.087 M/cumm [facility] Retics 2.2 0.4 - 2.9 % [facility] Reticulocyte Hgb 31.7 30.5 - 38.0 pg [facility] Blood 06/07/2022 8:54 PM CDT 06/07/2022 9:52 PM CDT Catherine Adams MD LAB BLOOD ORDERABLES Final Result [facility] [place] [address] * (ABNORMAL) Hemoglobin and hematocrit (06/07/2022 8:54 PM CDT) Hgb 7.5(L) 13.0 - 17.5 g/dL [facility] Comment:Hemoglobin delta due to apparent blood transfusion. Hct 20.9(L) 38.9 - 50.3 % [facility] Blood 06/07/2022 8:54 PM CDT 06/07/2022 9:47 PM CDT us Catherine Adams MD LAB BLOOD ORDERABLES Final Result Performing Organization Address [facility] Co de Phone Number [facility] [place] [address] * (ABNORMAL) POCT glucose (06/07/2022 8:50 PM CDT) Glucose, POC 304(H) 70 - 199 mg/dL [facility] Blood 06/07/2022 8:50 PM CDT 06/07/2022 8:50 PM CDT Result [facility] us Catherine Adams MD LAB POCT ORDERABLES - DEVIC E Final Result Performing Organization Address [facility] Co de Phone Number [facility] Department [place] [address] * (ABNORMAL) Haptoglobin (06/07/2022 8:00 PM CDT) Haptoglobin 312.0(H) 30.0 - 200.0 mg/dL [facility] Blood 06/07/2022 8:00 PM CDT 06/07/2022 8:26 PM CDT us Catherine Adams MD LAB BLOOD ORDERABLES Final Result Performing Organization Address [facility] Co de Phone Number [facility] [place] [address] * (ABNORMAL) Lactate dehydrogenase (LD) (06/07/2022 8:00 PM CDT) Lactate dehydrogenase (LDH) 335(H) 100 - 250 Units/L [facility] Blood 06/07/2022 8:00 PM CDT 06/07/2022 8:26 PM CDT Catherine Adams MD LAB BLOOD ORDERABLES Final Result Performing Organization Address [facility] de Phone Number [facility] Department [place] [address] * (ABNORMAL) Ferritin (06/07/2022 8:00 PM CDT) Ferritin 2,062(H) 30 - 400 ng/mL [facility] Blood 06/07/2022 8:00 PM CDT 06/07/2022 8:26 PM CDT us Catherine Adams MD LAB BLOOD ORDERABLES Final Result Performing Organization Address [facility] de Phone Number [facility] [place] [address] * (ABNORMAL) Iron profile w/ IBC (06/07/2022 8:00 PM CDT) Iron 50 50 - 150 mcg/dL [facility] TIBC 130(L) 250 - 400 mcg/dL [facility] Transferrin saturation 38 20 - 50 % [facility] Blood 06/07/2022 8:00 PM CDT 06/07/2022 8:26 PM CDT us Catherine Adams MD LAB BLOOD ORDERABLES Final Result Performing Organization Address City/[facility]/ZIP Co de Phone Number [facility] [place] [address] * Folate (06/07/2022 8:00 PM CDT) Pathologist [facility] Folic acid 8.7 >=5.0 ng/mL [facility] Blood 06/07/2022 8:00 PM CDT 06/07/2022 8:26 PM CDT us Catherine Adams MD LAB BLOOD ORDERABLES Final Result Performing Organization Address [facility] [place] [address] * Vitamin B12 (06/07/2022 8:00 PM CDT) [facility] Vitamin B12 373 230 - 1,250 pg/mL [facility] Blood 06/07/2022 8:00 PM CDT 06/07/2022 8:26 PM CDT us Catherine Adams MD LAB BLOOD ORDERABLES Final Result Performing Organization Address [facility] [place] [address] * Oxyhemoglobin, pulmonary artery (06/07/2022 7:57 PM CDT) Pathologist [facility] Oxyhemoglobin, PA 57.3 % [facility] Comment: Interpretive Data No reference range established. Current interpretive data was last revised 2019. Blood 06/07/2022 7:57 PM CDT 06/07/2022 8:09 PM CDT us Marcelina Lo NP LAB BLOOD ORDERABLES Final Re sult Performing Organization Address City/[facility]/[place] [address] * (ABNORMAL) Hemoglobin total, pulmonary artery (06/07/2022 7:57 PM CDT) Pathologist [facility] Hemoglobin total, PA 8.7(L) 13.0 - 17.5 g/dL [facility] Blood 06/07/2022 7:57 PM CDT 06/07/2022 8:09 PM CDT Marcelina Lo NP LAB BLOOD ORDERABLES Final Re sult Performing Organization Address [facility]/ZIP Co de Phone Number [facility] Department [place] [address] * (ABNORMAL) aPTT (06/07/2022 7:57 PM CDT) [facility] aPTT 44(H) 27 - 37 sec [facility] Comment: Interpretive Data Therapeutic heparin range: 60.0 - 94.0 seconds. Based on correlation with therapeutic heparin activity range of 0.3-0.7 Units/mL. Current interpretive data was last revised on 2020. Blood 06/07/2022 7:57 PM CDT 06/07/2022 8:14 PM CDT Narrative [facility] - 06/07/2022 8:20 PM CDT Draw [...] Ann Marie l Result Performing Organization Address City/[facility]/ZIP Co de Phone Number [facility] Department [place] [address] * Potassium, whole blood (06/07/2022 7:57 PM CDT) Pathologist [facility] Potassium, bld 3.3 3.3 - 4.9 mmol/L [facility] Blood 06/07/2022 7:57 PM CDT 06/07/2022 8:09 PM CDT Catherine Adams MD LAB BLOOD ORDERABLES Final Result Performing Organization Address City/[facility] Co de Phone Number [facility] Department [place] [address] * (ABNORMAL) POCT glucose (06/07/2022 7:51 PM CDT) Pathologist [facility] Glucose, POC 325(H) 70 - 199 mg/dL [facility] Blood 06/07/2022 7:51 PM CDT 06/07/2022 7:51 PM CDT Catherine Adams MD LAB POCT ORDERABLES - DEVIC E Final Result Performing Organization Address [facility] de Phone Number [facility] Department [place] [address] * (ABNORMAL) Differential, auto (06/07/2022 7:42 PM CDT) [facility] Neutrophil abs 7.3(H) 1.7 - 6.5 K/cumm [facility] Imm gran abs 0.2(H) 0.0 - 0.1 K/cumm [facility] Lymphocyte abs 0.6(L) 0.8 - 3.3 K/cumm [facility] Monocyte abs 0.5 0.2 - 0.8 K/cumm [facility] Eosinophil abs 0.0 0.0 - 0.5 K/cumm [facility] Basophil abs 0.0 0.0 - 0.1 K/cumm [facility] Neutrophil pct 85.1 % [facility] Comment: Interpretive Data Percent cell count reference ranges are not reported, since discordance with absolute values may lead to misinterpretation of CBC data. Current Interpretive Data was last revised on 2017. Imm gran pct 2.4 % [facility] Comment: Interpretive Data Percent cell count reference ranges are not reported, since discordance with absolute values may lead to misinterpretation of CBC data. Current Interpretive Data was last revised on 2017. Lymphocyte pct 6.6 % [facility] Comment: Interpretive Data Percent cell count reference ranges are not reported, since discordance with absolute values may lead to misinterpretation of CBC data. Current Interpretive Data was last revised on 2017. Monocyte pct 5.8 % [facility] Comment: Interpretive Data Percent cell count reference ranges are not reported, since discordance with absolute values may lead to misinterpretation of CBC data. Current Interpretive Data was last revised on 2017. Eosinophil pct 0.0 % [facility] Comment: Interpretive Data Percent cell count reference ranges are not reported, since discordance with absolute values may lead to misinterpretation of CBC data. Current Interpretive Data was last revised on 2017. Basophil pct 0.1 % [facility] Comment: Interpretive Data Percent cell count reference ranges are not reported, since discordance with absolute values may lead to misinterpretation of CBC data. Current Interpretive Data was last revised on 2017. Blood 06/07/2022 7:42 PM CDT 06/07/2022 8:25 PM CDT Catherine Adams MD LAB BLOOD ORDERABLES Final Result [facility] Department [place] [address] * (ABNORMAL) CBC with auto differential (06/07/2022 7:42 PM CDT) WBC 8.6 3.8 - 9.9 K/cumm [facility] Hgb 4.3(C) 13.0 - 17.5 g/dL [facility] Comment:Critical result call ed to and read back by LAVERN MORRISON RN on 06 07 2022 at 2036 to Janis Melton. Hct 12.3(L) 38.9 - 50.3 % [facility] Plt 233 150 - 400 K/cumm [facility] MPV 11.5 9.1 - 12.3 fL [facility] RBC 1.38(L) 4.30 - 5.80 M/cumm [facility] MCV 89.1 81.3 - 96.4 fL [facility] MCH 31.2 27.1 - 33.3 pg [facility] MCHC 35.0 32.3 - 35.7 g/dL [facility] RDW CV 13.3 11.1 - 14.9 % [facility] RDW SD 43.5 35.7 - 48.1 fL [facility] NRBC abs 0.00 0.00 - 0.01 K/cumm [facility] Blood 06/07/2022 7:42 PM CDT 06/07/2022 8:25 PM CDT Catherine Adams MD LAB BLOOD ORDERABLES Final Result Performing Organization Address [facility]/ZIP Co de Phone Number [facility] Department [place] [address] * (ABNORMAL) Beta-hydroxybutyrate (06/07/2022 6:24 PM CDT) Pathologist [facility] Beta-Hydroxybut yrate 2.3(H) 0.0 - 0.5 mmol/L [facility] Blood 06/07/2022 6:24 PM CDT 06/07/2022 6:42 PM CDT Catherine Adams MD LAB BLOOD ORDERABLES Final Result [facility] Department [place] [address] * (ABNORMAL) Differential, auto (06/07/2022 6:24 PM CDT) Pathologist [facility] Neutrophil abs 6.5 1.7 - 6.5 K/cumm [facility] Imm gran abs 0.2(H) 0.0 - 0.1 K/cumm [facility] Lymphocyte abs 0.4(L) 0.8 - 3.3 K/cumm [facility] Monocyte abs 0.3 0.2 - 0.8 K/cumm [facility] Eosinophil abs 0.0 0.0 - 0.5 K/cumm [facility] Basophil abs 0.0 0.0 - 0.1 K/cumm [facility] Neutrophil pct 88.3 % [facility] Comment: Interpretive Data Percent cell count reference ranges are not reported, since discordance with absolute values may lead to misinterpretation of CBC data. Current Interpretive Data was last revised on 2017. Imm gran pct 2.0 % [facility] Comment: Interpretive Data Percent cell count reference ranges are not reported, since discordance with absolute values may lead to misinterpretation of CBC data. Current Interpretive Data was last revised on 2017. Lymphocyte pct 5.3 % [facility] Comment: Interpretive Data Percent cell count reference ranges are not reported, since discordance with absolute values may lead to misinterpretation of CBC data. Current Interpretive Data was last revised on 2017. Monocyte pct 4.4 % [facility] Comment: Interpretive Data Percent cell count reference ranges are not reported, since discordance with absolute values may lead to misinterpretation of CBC data. Current Interpretive Data was last revised on 2017. Eosinophil pct 0.0 % [facility] Comment: Interpretive Data Percent cell count reference ranges are not reported, since discordance with absolute values may lead to misinterpretation of CBC data. Current Interpretive Data was last revised on 2017. Basophil pct 0.0 % [facility] Comment: Interpretive Data Percent cell count reference ranges are not reported, since discordance with absolute values may lead to misinterpretation of CBC data. Current Interpretive Data was last revised on 2017. Blood 06/07/2022 6:24 PM CDT 06/07/2022 6:37 PM CDT us Catherine Adams MD LAB BLOOD ORDERABLES Final Result [facility] Department [place] [address] * Blood culture Blood Wrist, right (06/07/2022 [...] organism identification may be performed using the Jike Xueyuanigene Gram-Positive Blood Culture Assay. This assay detects microbial DNA in positive blood culture broth via hybridization of target DNA to capture oligonucleotides on a microarray. This assay has been cleared by the [place] Food and Drug Administration and its performance characteristics have been verified by the [facility] Microbiology Laboratory. 5. ?For questions about this culture, contact the Microbiology Laboratory at [phone]. Interpretive data was last revised on 2020. us Catherine Adams MD LAB MICROBIOLOGY - GENERAL ORDERABLES Final Result [facility] Department [place] [address] * Blood culture Blood Central venous catheter (06/07/2022 6:24 PM CDT) Report Final Report: No growth [facility] Blood (Central venous catheter) 06/07/2022 6:24 PM CDT 06/07/2022 6:50 PM CDT Narrative [facility] - 06/12/2022 7:00 AM CDT 1. [...] organism identification may be performed using the Jike Xueyuanigene Gram-Positive Blood Culture Assay. This assay detects microbial DNA in positive blood culture broth via hybridization of target DNA to capture oligonucleotides on a microarray. This assay has been cleared by the [place] Food and Drug Administration and its performance characteristics have been verified by the [facility] Microbiology Laboratory. 5. ?For questions about this culture, contact the Microbiology Laboratory at [phone]. Interpretive data was last revised on 2020. Catherine Adams MD LAB MICROBIOLOGY - GENERAL ORDERABLES Final Result [facility] Department [place] [address] * (ABNORMAL) CBC with auto differential (06/07/2022 6:24 PM CDT) [facility] WBC 7.3 3.8 - 9.9 K/cumm [facility] Hgb 7.8(L) 13.0 - 17.5 g/dL [facility] Hct 22.1(L) 38.9 - 50.3 % [facility] Plt 194 150 - 400 K/cumm [facility] MPV 11.2 9.1 - 12.3 fL [facility] RBC 2.52(L) 4.30 - 5.80 M/cumm [facility] MCV 87.7 81.3 - 96.4 fL [facility] MCH 31.0 27.1 - 33.3 pg [facility] MCHC 35.3 32.3 - 35.7 g/dL [facility] RDW CV 13.2 11.1 - 14.9 % [facility] RDW SD 42.8 35.7 - 48.1 fL [facility] NRBC abs 0.00 0.00 - 0.01 K/cumm [facility] Blood 06/07/2022 6:24 PM CDT 06/07/2022 6:37 PM CDT Catherine Adams MD LAB BLOOD ORDERABLES Final Result Performing Organization Address City/State/[facility] Co de Phone Number [facility] [address] [facility] Department [place] [address] * XR Chest 1 View (06/07/2022 6:20 [...] Impella device. There is an inferior approach [place]iv catheter with tip overlying the proximal right [...] Impella device. There is an inferior approach [place]iv catheter with tip overlying the proximal right [...] CDT) pH, Art 7.46(H) 7.35 - 7.45 [facility] PCO2, Arterial 27(L) 35 - 45 mmHg [facility] PO2, Arterial 105 83 - 108 mmHg [facility] HCO3 Art (Calculated) 20 20 - 30 mmol/L [facility] BE, art -4 mmol/L [facility] Comment: Interpretive Data No Reference Range Established Current Interpretive Data was last revised on 2017 O2 Sat Art (Measured) 98(H) 90 - 95 % [facility] Blood 06/07/2022 5:20 PM CDT 06/07/2022 5:26 PM CDT Catherine Adams MD LAB BLOOD ORDERABLES Final Result Performing Organization Address City/[facility] Co de Phone Number [facility] Department [place] [address] * Critical result callback Cardio chemistry (06/07/2022 5:12 PM CDT) Date Notified [id number] [facility] Time Notified 1850 [facility] Test name [facility]roponin [facility] Called/Read Back Anali [facility] Credentials [facility] Called By Ian Rodriguez [facility] Blood 06/07/2022 5:12 PM CDT 06/07/2022 6:10 PM CDT Catherine Adams MD LAB BLOOD ORDERABLES Final Result [facility] Department [place] [address] * (ABNORMAL) Troponin I high-sensitivity (06/07/2022 5:12 PM CDT) Trop I hs 2,704(C) <=35 ng/L [facility] Comment: Interpretive Data For further hscTnI resources including the diagnostic algorithm and an aid in interpretation, copy and paste this link: [email or web address]/[email or web address] Current Interpretive Data last revised 2020. Blood 06/07/2022 5:12 PM CDT 06/07/2022 5:29 PM CDT Catherine Adams MD LAB BLOOD ORDERABLES Final Result Performing Organization Address City/[facility]/ZIP Co de Phone Number [facility] Department [place] [address] * Lactate (06/07/2022 5:12 PM CDT) Pathologist [facility] Lactate 1.3 0.7 - 2.0 mmol/L [facility] Blood 06/07/2022 5:12 PM CDT 06/07/2022 5:22 PM CDT Catherine Adams MD LAB BLOOD ORDERABLES Final Result Performing Organization Address [facility] de Phone Number [facility] Department [place] [address] * (ABNORMAL) eGFR (06/07/2022 5:08 PM CDT) Pathologist [facility] eGFR 5(L) 90 - 130 mL/min/1. 73 m2 [facility] Comment: Interpretive Data Reference Interval Normal [...] LAB BLOOD ORDERABLES Ann Marie kramer Result [facility] Department [place] [address] * (ABNORMAL) Triglycerides (06/07/2022 5:08 PM CDT) Triglycerides 172(H) <=149 mg/dL [facility] Comment: Hemolyzed; result may be falsely [...] PM CDT 06/07/2022 5:33 PM CDT Result [facility] Catherine Adams MD LAB BLOOD ORDERABLES Final Result Performing Organization Address City/[facility] Co de Phone Number [facility] [place] [address] * (ABNORMAL) Hemoglobin total, central venous (06/07/2022 5:08 PM CDT) Hemoglobin total, CV 8.2(L) 13.0 - 17.5 g/dL [facility] Blood 06/07/2022 5:08 PM CDT 06/07/2022 5:22 PM CDT Narrative [facility] - 06/07/2022 5:25 PM CDT If using Miley Cardiac Output Method Result [facility] Catherine Adams MD LAB BLOOD ORDERABLES Final Result Performing Organization Address [facility] Co de Phone Number [facility] [place] [address] * Methemoglobin, central venous (06/07/2022 5:08 PM CDT) Methemoglobin, CV 2.1 % [facility] Comment: Interpretive Data No reference range established. Current interpretive data was last revised 2019. Blood 06/07/2022 5:08 PM CDT 06/07/2022 5:22 PM CDT Narrative [facility] - 06/07/2022 5:25 PM CDT If using Miley Cardiac Output Method Result [facility] Catherine Adams MD LAB BLOOD ORDERABLES Final Result Performing Organization Address City/[facility] Co de Phone Number [facility] [place] [address] * Carboxyhemoglobin, central venous (06/07/2022 5:08 PM CDT) [facility] Carboxyhemoglobin , CV 1.0 % [facility] Comment: Interpretive Data No reference range established. Current interpretive data was last revised 2019. Blood 06/07/2022 5:08 PM CDT 06/07/2022 5:22 PM CDT Narrative [facility] - 06/07/2022 5:26 PM CDT If using Miley Cardiac Output Method Catherine Adams MD LAB BLOOD ORDERABLES Final Result Performing Organization Address [facility] de Phone Number [facility] Department [place] [address] * Oxyhemoglobin, central venous (06/07/2022 5:08 PM CDT) [facility] Oxyhemoglobin, CV 66.6 % [facility] Comment: Interpretive Data No reference range established. Current interpretive data was last revised 2019. Blood 06/07/2022 5:08 PM CDT 06/07/2022 5:22 PM CDT Narrative [facility] - 06/07/2022 5:25 PM CDT If using Miley Cardiac Output Method Catherine Adams MD LAB BLOOD ORDERABLES Final Result Performing Organization Address City/[facility] de Phone Number [facility] Department [place] [address] * (ABNORMAL) Phosphorus (06/07/2022 5:08 PM CDT) Pathologist [facility] Phosphorus, pl 7.2(H) 2.3 - 4.5 mg/dL [facility] Comment:Hemolyzed; result ma y be falsely elevated Blood 06/07/2022 5:08 PM CDT 06/07/2022 5:33 PM CDT Conrad Weston Chi, MD LAB BLOOD ORDERABLES Ann Marie l Result Performing Organization Address City/[facility]/ZIP Co de Phone Number [facility] [address] [facility] [employer] [place] [address] * Magnesium (06/07/2022 5:08 PM CDT) Pathologist [facility] Magnesium 2.2 1.4 - 2.5 mg/dL [facility] Blood 06/07/2022 5:08 PM CDT 06/07/2022 5:33 PM CDT Conrad Weston Chi, MD LAB BLOOD ORDERABLES Ann Marie l Result Performing Organization Address [facility] de Phone Number [facility] [place] [address] * (ABNORMAL) Comprehensive metabolic panel (06/07/2022 5:08 PM CDT) Pathologist [facility] Sodium 129(L) 135 - 145 mmol/L [facility] Potassium, pl See Comment 3.3 - 4.9 mmol/L [facility] Comment:Credited; Hemolyzed Specimen Chloride 87(L) 97 - 110 mmol/L [facility] CO2 21(L) 22 - 32 mmol/L [facility] Anion gap 21(H) 2 - 15 mmol/L [facility] BUN 80(H) 8 - 25 mg/dL [facility] Creatinine 10.36(H) 0.80 - 1.30 mg/dL [facility] Glucose 329(H) 70 - 199 mg/dL [facility] Comment: Interpretive Data Fasting glucose >/= [...] 2017. Calcium 8.1(L) 8.5 - 10.3 mg/dL [facility] Bilirubin, total 0.8 0.1 - 1.2 mg/dL [facility] Protein, pl 6.0(L) 6.5 - 8.5 g/dL [facility] Albumin 2.5(L) 3.5 - 5.0 g/dL [facility] Alk phos 177(H) 40 - 130 Units/L [facility] Comment:Hemolyzed; result ma y be falsely decreased ALT See Comment 7 - 55 Units/L [facility] Comment:Credited; Hemolyzed Specimen AST See Comment 10 - 50 Units/L [facility] Comment:Credited; Hemolyzed Specimen Blood 06/07/2022 5:08 PM CDT 06/07/2022 5:33 PM CDT us Conrad Weston Chi, MD LAB BLOOD ORDERABLES Ann Marie l Result Performing Organization Address City/[facility] Co de Phone Number [facility] Department [place] [address] * (ABNORMAL) POCT glucose (06/07/2022 5:00 PM CDT) Glucose, POC 385(H) 70 - 199 mg/dL [facility] Glucose comment 1 Glu2: RN/ Notified [facility] Blood 06/07/2022 5:00 PM CDT 06/07/2022 5:00 PM CDT Catherine Adams MD LAB POCT ORDERABLES - DEVIC E Final Result Performing Organization Address City/[facility]/ZIP Co de Phone Number [facility] Department [place] [address] * ECG 12 lead (06/07/2022 4:59 PM CDT) [facility] Ventricular Rate EKG/Min 51 BPM [facility] Atrial Rate 51 BPM [facility] OK-Interval (MSEC) 212 ms [facility] QRS-Interval (MSEC) 130 ms [facility] QT-Interval (MSEC) 580 ms [facility] QTc 534 ms [facility] P [place] 69 degrees [facility] R [place] -38 degrees [facility] T [place] 95 degrees [facility] Diagnosis Sinus bradycardia with 1st degree [...] BUSTOS M.D ([id number]) on 06/08/2022 9:42:26 AM [facility] 06/07/2022 4:59 PM CDT 06/08/2022 9:42 AM CDT us Catherine Adams MD ECG ORDERABLES Final Resul t [facility] * MARIELLA MAJOR CORONARY (06/07/2022 3:57 PM CDT) Anatomical Region Laterality Modality X-Ray Angiograph y Narrative 06/07/2022 4:24 PM CDT Cardiac catheterization Interventional fellow: ??Dr. Fernando Talavera HPI 51-year-old morbidly obese male with a history of end-stage renal disease on peritoneal dialysis, hypertension diabetes hyperlipidemia and recent non ST elevation [place] now referred for complex PCI. ??Patient is followed at an outside hospital repetitive episodes of flash pulmonary edema/hypertensive urgency despite 3 medications. ??Recently underwent cardiac catheterization revealed a 90% ostial circumflex and a left-dominant circulation, 98% mid circumflex and a 70% om lesion. ??It is felt to be extremely high risk was transferred to [facility]. ?? He had hypoxemic respiratory arrest that [...] ??Using ultrasound directed micropuncture technique a 7 Togolese 45 cm sheath placed in the right femoral artery over an Ramos wire. ?? Subsequently, an 8 Togolese sheath inserted into the left femoral vein with placement of a [place]-Ilv catheter with the pulmonary artery. ??Heparin was administered to maintain ACT of 300 seconds or greater. ??Angioplasty was performed with a 7 Togolese EBU 3.5 guide catheter, 0.014 in line pilot 50 wire in the circumflex and [...] artery sheath was exchanged for a 14 Togolese Impella sheath. ??An Impella CP was placed into the left ventricle producing 3.2-3.4 liters/minute flow. ??The peel-away sheath was removed and the permanent sheath inserted. ??Two 6 Togolese pro style were placed prior to sheath insertion with preserved sterilely. ?? Impella sheath was sewn in place as well as a Branchport-Liv catheter. ?? Trialysis catheter was placed into [...] CDT) ACT 226(H) 123 - 168 sec [facility] Blood 06/07/2022 2:15 PM CDT 06/07/2022 2:15 PM CDT us Catherine Adams MD LAB POCT ORDERABLES - DEVIC E Final Result [facility] Department [place] [address] * (ABNORMAL) POC Blood Gas and Chemistries, Arterial - (06/07/2022 1:52 PM CDT) pH, Art POC 7.30(L) 7.35 - 7.45 [facility] pCO2, Art POC 42 35 - 45 mmHg [facility] pO2, Art POC 49(L) 83 - 108 mmHg [facility] Na, POC 132(L) 135 - 145 mmol/L [facility] K POC 4.1 3.3 - 4.9 mmol/L [facility] Comment: Interpretive Data This method is not able to assess for hemolysis, which may falsely increase potassium concentrations. If further testing is needed to evaluate this result, consider in-laboratory plasma potassium. Current Interpretive Data was last revised on 2022. Cl, POC 96(L) 97 - 110 mmol/L [facility] Ionized Ca, POC 4.62 4.50 - 5.10 mg/dL [facility] Glucose, POC 293(H) 70 - 199 mg/dL [facility] Lactate, POC 3.4(H) 0.7 - 2.2 mmol/L [facility] SO2 (uyen) arterial 78(L) 90 - 95 % [facility] Base excess, POC -5.5 mmol/L [facility] HCO3, Art POC 21 20 - 30 mmol/L [facility] Hct, POC 30.0(L) 41.4 - 51.6 % [facility] O2 Sat, Art POC (Calc) 80 % [facility] Total Hb, POC 9.9(L) 13.8 - 17.2 g/dL [facility] Blood 06/07/2022 1:52 PM CDT 06/07/2022 1:52 PM CDT us Conrad Weston Chi, MD LAB POCT ORDERABLES - DEV ICE Final Result [facility] Department [place] [address] * (ABNORMAL) POCT Activated clotting time, low range (06/07/2022 1:49 PM CDT) ACT 214(H) 123 - 168 sec [facility] Blood 06/07/2022 1:49 PM CDT 06/07/2022 1:49 PM CDT us Catherine Adams MD LAB POCT ORDERABLES - DEVIC E Final Result [facility] Department [place] [address] * (ABNORMAL) POC Blood Gas and Chemistries, Arterial - (06/07/2022 1:31 PM CDT) pH, Art POC 7.16(C) 7.35 - 7.45 [facility] pCO2, Art POC 53(H) 35 - 45 mmHg [facility] pO2, Art POC 41(L) 83 - 108 mmHg [facility] Na, POC 130(L) 135 - 145 mmol/L [facility] K POC 3.5 3.3 - 4.9 mmol/L [facility] Comment: Interpretive Data This method is not able to assess for hemolysis, which may falsely increase potassium concentrations. If further testing is needed to evaluate this result, consider in-laboratory plasma potassium. Current Interpretive Data was last revised on 2022. Cl, POC 93(L) 97 - 110 mmol/L [facility] Ionized Ca, POC 4.29(L) 4.50 - 5.10 mg/dL [facility] Glucose, POC 300(H) 70 - 199 mg/dL [facility] Lactate, POC 5.3(C) 0.7 - 2.2 mmol/L [facility] SO2 (uyen) arterial 59(C) 90 - 95 % [facility] Base excess, POC -10.1 mmol/L [facility] HCO3, Art POC 19(L) 20 - 30 mmol/L [facility] Hct, POC 31.0(L) 41.4 - 51.6 % [facility] O2 Sat, Art POC (Calc) 60 % [facility] Total Hb, POC 10.2(L) 13.8 - 17.2 g/dL [facility] Blood 06/07/2022 1:31 PM CDT 06/07/2022 1:31 PM CDT Conrad Weston Chi, MD LAB POCT ORDERABLES - DEV ICE Final Result Performing Organization Address [facility] Co de Phone Number [facility] [place] [address] * (ABNORMAL) POCT Activated clotting time, low range (06/07/2022 12:47 PM CDT) ACT 289(H) 123 - 168 sec [facility] Blood 06/07/2022 12:4 7 PM CDT 06/07/2022 12:47 PM CDT Catherine Adams MD LAB POCT ORDERABLES - DEVIC E Final Result Performing Organization Address [facility] de Phone Number [facility] Department [place] [address] * (ABNORMAL) POCT Activated clotting time, low range (06/07/2022 12:32 PM CDT) ACT 249(H) 123 - 168 sec [facility] Blood 06/07/2022 12:3 2 PM CDT 06/07/2022 12:32 PM CDT Catherine Adams MD LAB POCT ORDERABLES - DEVIC E Final Result Performing Organization Address [facility] Co de Phone Number [facility] [place] [address] * POCT glucose (06/07/2022 11:27 AM CDT) [facility] Glucose, POC 179 70 - 199 mg/dL [facility] Blood 06/07/2022 11:2 7 AM CDT 06/07/2022 11:27 AM CDT Conrad Weston Chi, MD LAB POCT ORDERABLES - DEV ICE Final Result [facility] [place] [address] * (ABNORMAL) aPTT (06/07/2022 9:59 AM CDT) aPTT 71(H) 27 - 37 sec [facility] Comment: Interpretive Data Therapeutic heparin range: 60.0 - 94.0 seconds. Based on correlation with therapeutic heparin activity range of 0.3-0.7 Units/mL. Current interpretive data was last revised on 2020. Blood 06/07/2022 9:59 AM CDT 06/07/2022 10:19 AM CDT Narrative [facility] - 06/07/2022 10:46 AM CDT Draw [...] Ann Marie l Result Performing Organization Address [facility] Co de Phone Number [facility] [place] [address] * (ABNORMAL) POCT glucose (06/07/2022 7:59 AM CDT) Glucose, POC 247(H) 70 - 199 mg/dL [facility] Blood 06/07/2022 7:59 AM CDT 06/07/2022 7:59 AM CDT Conrad Weston Chi, MD LAB POCT ORDERABLES - DEV ICE Final Result Performing Organization Address City/[facility]/ZIP Co de Phone Number [facility] [place] [address] * (ABNORMAL) POCT glucose (06/07/2022 4:17 AM CDT) Glucose, POC 239(H) 70 - 199 mg/dL [facility] Blood 06/07/2022 4:17 AM CDT 06/07/2022 4:17 AM CDT Conrad Weston Chi, MD LAB POCT ORDERABLES - DEV ICE Final Result Performing Organization Address [facility]/ZIP Co de Phone Number [facility] Department [place] [address] * (ABNORMAL) aPTT (06/07/2022 4:17 AM CDT) aPTT 57(H) 27 - 37 sec [facility] Comment: Interpretive Data Therapeutic heparin range: 60.0 - 94.0 seconds. Based on correlation with therapeutic heparin activity range of 0.3-0.7 Units/mL. Current interpretive data was last revised on 2020. Blood 06/07/2022 4:17 AM CDT 06/07/2022 4:37 AM CDT Narrative [facility] - 06/07/2022 5:01 AM CDT Draw [...] Ann Marie l Result Performing Organization Address City/[facility]/ZIP Co de Phone Number [facility] Department [place] [address] * POCT glucose (06/06/2022 11:51 PM CDT) Glucose, POC 170 70 - 199 mg/dL [facility] Blood 06/06/2022 11:5 1 PM CDT 06/06/2022 11:51 PM CDT Conrad Weston Chi, MD LAB POCT ORDERABLES - DEV ICE Final Result Performing Organization Address [facility] Co de Phone Number [facility] Department [place] [address] * POCT glucose (06/06/2022 8:18 PM CDT) Glucose, POC 123 70 - 199 mg/dL [facility] Blood 06/06/2022 8:18 PM CDT 06/06/2022 8:18 PM CDT Conrad Weston Chi, MD LAB POCT ORDERABLES - DEV ICE Final Result Performing Organization Address [facility] de Phone Number [facility] Department [place] [address] * (ABNORMAL) eGFR (06/06/2022 8:16 PM CDT) Pathologist [facility] eGFR 5(L) 90 - 130 mL/min/1. 73 m2 [facility] Comment: Interpretive Data Reference Interval Normal [...] LAB BLOOD ORDERABLES Ann Marie kramer Result [facility] Department [place] [address] * (ABNORMAL) Differential, auto (06/06/2022 8:16 PM CDT) Neutrophil abs 9.8(H) 1.7 - 6.5 K/cumm [facility] Imm gran abs 0.2(H) 0.0 - 0.1 K/cumm [facility] Lymphocyte abs 0.7(L) 0.8 - 3.3 K/cumm [facility] Monocyte abs 0.9(H) 0.2 - 0.8 K/cumm [facility] Eosinophil abs 0.1 0.0 - 0.5 K/cumm [facility] Basophil abs 0.0 0.0 - 0.1 K/cumm [facility] Neutrophil pct 84.4 % [facility] Comment: Interpretive Data Percent cell count reference ranges are not reported, since discordance with absolute values may lead to misinterpretation of CBC data. Current Interpretive Data was last revised on 2017. Imm gran pct 1.3 % [facility] Comment: Interpretive Data Percent cell count reference ranges are not reported, since discordance with absolute values may lead to misinterpretation of CBC data. Current Interpretive Data was last revised on 2017. Lymphocyte pct 6.0 % [facility] Comment: Interpretive Data Percent cell count reference ranges are not reported, since discordance with absolute values may lead to misinterpretation of CBC data. Current Interpretive Data was last revised on 2017. Monocyte pct 7.6 % [facility] Comment: Interpretive Data Percent cell count reference ranges are not reported, since discordance with absolute values may lead to misinterpretation of CBC data. Current Interpretive Data was last revised on 2017. Eosinophil pct 0.5 % [facility] Comment: Interpretive Data Percent cell count reference ranges are not reported, since discordance with absolute values may lead to misinterpretation of CBC data. Current Interpretive Data was last revised on 2017. Basophil pct 0.2 % [facility] Comment: Interpretive Data Percent cell count reference ranges are not reported, since discordance with absolute values may lead to misinterpretation of CBC data. Current Interpretive Data was last revised on 2017. Blood 06/06/2022 8:16 PM CDT 06/06/2022 8:41 PM CDT Conrad Weston Chi, MD LAB BLOOD ORDERABLES Ann Marie l Result Performing Organization Address City/[facility]/ZIP Co de Phone Number [facility] Department [place] [address] * (ABNORMAL) Phosphorus (06/06/2022 8:16 PM CDT) Phosphorus, pl 6.6(H) 2.3 - 4.5 mg/dL [facility] Blood 06/06/2022 8:16 PM CDT 06/06/2022 8:41 PM CDT Conrad Weston Chi, MD LAB BLOOD ORDERABLES Ann Marie l Result [facility] Department [place] [address] * Magnesium (06/06/2022 8:16 PM CDT) Magnesium 2.1 1.4 - 2.5 mg/dL [facility] Blood 06/06/2022 8:16 PM CDT 06/06/2022 8:41 PM CDT Conrad Weston Chi, MD LAB BLOOD ORDERABLES Ann Marie kramer Result Performing Organization Address [facility] Co de Phone Number [facility] Department [place] [address] * (ABNORMAL) CBC with auto differential (06/06/2022 8:16 PM CDT) Pathologist [facility] WBC 11.6(H) 3.8 - 9.9 K/cumm [facility] Hgb 9.3(L) 13.0 - 17.5 g/dL [facility] Hct 26.4(L) 38.9 - 50.3 % [facility] Plt 207 150 - 400 K/cumm [facility] MPV 11.1 9.1 - 12.3 fL [facility] RBC 2.99(L) 4.30 - 5.80 M/cumm [facility] MCV 88.3 81.3 - 96.4 fL [facility] MCH 31.1 27.1 - 33.3 pg [facility] MCHC 35.2 32.3 - 35.7 g/dL [facility] RDW CV 13.1 11.1 - 14.9 % [facility] RDW SD 42.2 35.7 - 48.1 fL [facility] NRBC abs 0.00 0.00 - 0.01 K/cumm [facility] Blood 06/06/2022 8:16 PM CDT 06/06/2022 8:41 PM CDT Conrad Weston Chi, MD LAB BLOOD ORDERABLES Ann Marie l Result Performing Organization Address City/[facility]/ZIP Co de Phone Number [facility] Department [place] [address] * (ABNORMAL) Comprehensive metabolic panel (06/06/2022 8:16 PM CDT) Sodium 132(L) 135 - 145 mmol/L [facility] Potassium, pl 3.4 3.3 - 4.9 mmol/L [facility] Chloride 89(L) 97 - 110 mmol/L [facility] CO2 25 22 - 32 mmol/L [facility] Anion gap 18(H) 2 - 15 mmol/L [facility] BUN 82(H) 8 - 25 mg/dL [facility] Creatinine 10.45(H) 0.80 - 1.30 mg/dL [facility] Glucose 112 70 - 199 mg/dL [facility] Comment: Interpretive Data Fasting glucose >/= [...] 2017. Calcium 7.5(L) 8.5 - 10.3 mg/dL [facility] Bilirubin, total 0.7 0.1 - 1.2 mg/dL [facility] Protein, pl 6.5 6.5 - 8.5 g/dL [facility] Albumin 3.2(L) 3.5 - 5.0 g/dL [facility] Alk phos 135(H) 40 - 130 Units/L [facility] ALT 40 7 - 55 Units/L [facility] AST 45 10 - 50 Units/L [facility] Blood 06/06/2022 8:16 PM CDT 06/06/2022 8:41 PM CDT us Conrad Weston Chi, MD LAB BLOOD ORDERABLES Ann Marie kramer Result [facility] Department [place] [address] * POCT glucose (06/06/2022 5:53 PM CDT) Glucose, POC 99 70 - 199 mg/dL [facility] Blood 06/06/2022 5:53 PM CDT 06/06/2022 5:53 PM CDT Conrad Weston Chi, MD LAB POCT ORDERABLES - DEV ICE Final Result Performing Organization Address City/[facility] Co de Phone Number [facility] Department [place] [address] * POCT glucose (06/06/2022 11:38 AM CDT) Glucose, POC 108 70 - 199 mg/dL [facility] Blood 06/06/2022 11:3 8 AM CDT 06/06/2022 11:38 AM CDT Conrad Weston Chi, MD LAB POCT ORDERABLES - DEV ICE Final Result Performing Organization Address City/[facility] de Phone Number [facility] [place] [address] * (ABNORMAL) aPTT (06/06/2022 10:26 AM CDT) aPTT 71(H) 27 - 37 sec [facility] Comment: Interpretive Data Therapeutic heparin range: 60.0 - 94.0 seconds. Based on correlation with therapeutic heparin activity range of 0.3-0.7 Units/mL. Current interpretive data was last revised on 2020. Blood 06/06/2022 10:2 6 AM CDT 06/06/2022 10:37 AM CDT Narrative [facility] - 06/06/2022 11:02 AM CDT Draw [...] Ann Marie l Result Performing Organization Address City/[facility]/ZIP Co de Phone Number [facility] [place] [address] * POCT glucose (06/06/2022 8:06 AM CDT) Glucose, POC 109 70 - 199 mg/dL [facility] Blood 06/06/2022 8:06 AM CDT 06/06/2022 8:06 AM CDT Conrad Weston Chi, MD LAB POCT ORDERABLES - DEV ICE Final Result Performing Organization Address [facility] de Phone Number [facility] [place] [address] * XR Chest 1 View (06/06/2022 4:45 [...] POC 164 70 - 199 mg/dL [facility] Blood 06/06/2022 3:49 AM CDT 06/06/2022 3:49 AM CDT Conrad Weston Chi, MD LAB POCT ORDERABLES - DEV ICE Final Result [facility] Department [place] [address] * (ABNORMAL) aPTT (06/06/2022 3:41 AM CDT) aPTT 65(H) 27 - 37 sec [facility] Comment: Interpretive Data Therapeutic heparin range: 60.0 - 94.0 seconds. Based on correlation with therapeutic heparin activity range of 0.3-0.7 Units/mL. Current interpretive data was last revised on 2020. Blood 06/06/2022 3:41 AM CDT 06/06/2022 4:23 AM CDT Narrative [facility] - 06/06/2022 4:32 AM CDT Draw [...] Ann Marie l Result Performing Organization Address [facility] de Phone Number [facility] Department [place] [address] * (ABNORMAL) Blood gas, arterial (06/06/2022 1:14 AM CDT) pH, Art 7.39 7.35 - 7.45 [facility] PCO2, Arterial 37 35 - 45 mmHg [facility] PO2, Arterial 169(H) 83 - 108 mmHg [facility] HCO3 Art (Calculated) 23 20 - 30 mmol/L [facility] BE, art -2 mmol/L [facility] Comment: Interpretive Data No Reference Range Established Current Interpretive Data was last revised on 2017 O2 Sat Art (Measured) 99(H) 90 - 95 % [facility] Blood 06/06/2022 1:14 AM CDT 06/06/2022 1:29 AM CDT Conrad Weston Chi, MD LAB BLOOD ORDERABLES Ann Marie l Result Performing Organization Address [facility] de Phone Number [facility] Department [place] [address] * POCT glucose (06/06/2022 12:01 AM CDT) Glucose, POC 192 70 - 199 mg/dL [facility] Blood 06/06/2022 12:0 1 AM CDT 06/06/2022 12:01 AM CDT Result [facility] Cornad Weston Chi, MD LAB POCT ORDERABLES - DEV ICE Final Result Performing Organization Address [facility] de Phone Number [facility] Department [place] [address] * XR Abdomen Ap 1 Vw (06/05/2022 11:30 PM CDT) Anatomical Region Laterality Modality Body, Abdomen N/A Computed Radiogr aphy 06/06/2022 9:30 AM CDT Impressions 06/06/2022 11:54 AM CDT A single view of the abdomen is submitted for evaluation. The pelvis is excluded from the [id number] and unavailable for interpretation. ??A rounded density [...] evaluation. The pelvis is excluded from the [id number] and unavailable for interpretation. A rounded density [...] Glucose, POC 195 70 - 199 mg/dL [facility] Blood 06/05/2022 9:13 PM CDT 06/05/2022 9:13 PM CDT us Conrad Weston Chi, MD LAB POCT ORDERABLES - DEV ICE Final Result Performing Organization Address [facility]/ZIP Co de Phone Number [facility] Department [place] [address] * (ABNORMAL) eGFR (06/05/2022 8:47 PM CDT) eGFR 6(L) 90 - 130 mL/min/1. 73 m2 [facility] Comment: Interpretive Data Reference Interval Normal [...] BLOOD ORDERABLES Final Result Performing Organization Address City/[facility]/ZIP Co de Phone Number [facility] Department [place] [address] * (ABNORMAL) Urinalysis, microscopic only (06/05/2022 8:47 PM CDT) Pathologist [facility] WBC, ur 6-10(A) 0 - 5 /HPF [facility] RBC, ur >50(A) 0 - 2 /HPF [facility] Epithelial cells, squamous, ur 1-5 0 - 5 /HPF [facility] Epithelial cells, transitional, ur 1-5 0 - 0 /HPF [facility] Bacteria, ur 2+(A) [facility] Mucous, ur Present(A) [facility] Hyaline casts, ur 11-20(A) 0 - 10 /LPF [facility] Culture Reflex Comment Reflex conditions for urine culture (WBC >10) not met. [facility] Urine 06/05/2022 8:47 PM CDT 06/05/2022 9:32 PM CDT Conrad Weston Chi, MD LAB URINE ORDERABLES Ann Marie kramer Result [facility] Department [place] [address] * (ABNORMAL) Differential, auto (06/05/2022 8:47 PM CDT) Pathologist [facility] Neutrophil abs 7.7(H) 1.7 - 6.5 K/cumm [facility] Imm gran abs 0.1 0.0 - 0.1 K/cumm [facility] Lymphocyte abs 0.5(L) 0.8 - 3.3 K/cumm [facility] Monocyte abs 0.7 0.2 - 0.8 K/cumm [facility] Eosinophil abs 0.0 0.0 - 0.5 K/cumm [facility] Basophil abs 0.0 0.0 - 0.1 K/cumm [facility] Neutrophil pct 85.3 % [facility] Comment: Interpretive Data Percent cell count reference ranges are not reported, since discordance with absolute values may lead to misinterpretation of CBC data. Current Interpretive Data was last revised on 2017. Imm gran pct 1.3 % [facility] Comment: Interpretive Data Percent cell count reference ranges are not reported, since discordance with absolute values may lead to misinterpretation of CBC data. Current Interpretive Data was last revised on 2017. Lymphocyte pct 5.8 % [facility] Comment: Interpretive Data Percent cell count reference ranges are not reported, since discordance with absolute values may lead to misinterpretation of CBC data. Current Interpretive Data was last revised on 2017. Monocyte pct 7.5 % [facility] Comment: Interpretive Data Percent cell count reference ranges are not reported, since discordance with absolute values may lead to misinterpretation of CBC data. Current Interpretive Data was last revised on 2017. Eosinophil pct 0.0 % [facility] Comment: Interpretive Data Percent cell count reference ranges are not reported, since discordance with absolute values may lead to misinterpretation of CBC data. Current Interpretive Data was last revised on 2017. Basophil pct 0.1 % [facility] Comment: Interpretive Data Percent cell count reference ranges are not reported, since discordance with absolute values may lead to misinterpretation of CBC data. Current Interpretive Data was last revised on 2017. Blood 06/05/2022 8:47 PM CDT 06/05/2022 9:45 PM CDT Champ Osborne MD PhD LAB BLOOD ORDERABLES Final Result [facility] Department [place] [address] * (ABNORMAL) Blood gas, arterial (06/05/2022 8:47 PM CDT) pH, Art 7.38 7.35 - 7.45 [facility] PCO2, Arterial 37 35 - 45 mmHg [facility] PO2, Arterial 76(L) 83 - 108 mmHg [facility] HCO3 Art (Calculated) 22 20 - 30 mmol/L [facility] BE, art -3 mmol/L [facility] Comment: Interpretive Data No Reference Range Established Current Interpretive Data was last revised on 2017 O2 Sat Art (Measured) 94 90 - 95 % [facility] Blood 06/05/2022 8:47 PM CDT 06/05/2022 9:32 PM CDT Conrad Weston Chi, MD LAB BLOOD ORDERABLES Ann Marie l Result Performing Organization Address [facility] Phone Number [facility] [place] [address] * (ABNORMAL) Troponin I high-sensitivity (06/05/2022 8:47 PM CDT) Pathologist [facility] Trop I hs 3,996(C) <=35 ng/L [facility] Comment: Previous critical value noted within 48 hours ago. Interpretive Data For further [facility] resources including the diagnostic algorithm and an aid in interpretation, copy and paste this link: [email or web address]/[email or web address] Current Interpretive Data last revised 2020. Blood 06/05/2022 8:47 PM CDT 06/05/2022 9:47 PM CDT Conrad Weston Chi, MD LAB BLOOD ORDERABLES Ann Marie l Result Performing Organization Address [facility] de Phone Number [facility] [place] [address] * (ABNORMAL) Urinalysis reflex to microscopic and culture Urine (06/05/2022 8:47 PM CDT) Color, ur Yellow Yellow [facility] Clarity, ur Cloudy(A) Clear [facility] Specific gravity, ur 1.037(H) 1.003 - 1.030 [facility] pH, urine 6.0 [facility] Protein, ur ql 3+(A) Negative [facility] Glucose, ur ql 3+(A) Negative [facility] Ketones, ur Negative Negative [facility] Bilirubin, ur Negative Negative [facility] Blood, ur 3+(A) Negative [facility] Urobilinogen, ur <2.0 <2.0 mg/dL [facility] Nitrite, ur Negative Negative [facility] Leukocyte esterase, ur Negative Negative [facility] UA reflex comment Reflex to microscopic UA will be performed. [facility] Urine 06/05/2022 8:47 PM CDT 06/05/2022 8:47 PM CDT Narrative [facility] - 06/05/2022 9:49 PM CDT ?? Urine pH is affected by diet, medications, systemic acid-base disturbances, and renal tubular function. ??pH may affect urinary stone formation. ??For example, urine pH below 6.0 may help reduce the tendency for calcium phosphate stones and pH greater than 6.0 may reduce the tendency for uric acid stone formation. Source: [facility] [employer]. Last revised 08-31-2017 Conrad Weston Chi, MD LAB MICROBIOLOGY - GENERA L ORDERABLES Final Result Performing Organization Address City/[facility]/ZIP Co de Phone Number [facility] Department [place] [address] * (ABNORMAL) Phosphorus (06/05/2022 8:47 PM CDT) Phosphorus, pl 6.5(H) 2.3 - 4.5 mg/dL [facility] Blood 06/05/2022 8:47 PM CDT 06/05/2022 9:46 PM CDT Conrad Weston Chi, MD LAB BLOOD ORDERABLES Ann Marie l Result [facility] Department [place] [address] * Magnesium (06/05/2022 8:47 PM CDT) Magnesium 1.9 1.4 - 2.5 mg/dL [facility] Blood 06/05/2022 8:47 PM CDT 06/05/2022 9:46 PM CDT Conrad Weston Chi, MD LAB BLOOD ORDERABLES Ann Marie l Result Performing Organization Address [facility] Co de Phone Number [facility] Department [place] [address] * (ABNORMAL) CBC with auto differential (06/05/2022 8:47 PM CDT) Pathologist [facility] WBC 9.1 3.8 - 9.9 K/cumm [facility] Hgb 9.3(L) 13.0 - 17.5 g/dL [facility] Hct 26.0(L) 38.9 - 50.3 % [facility] Plt 201 150 - 400 K/cumm [facility] MPV 11.3 9.1 - 12.3 fL [facility] RBC 2.95(L) 4.30 - 5.80 M/cumm [facility] MCV 88.1 81.3 - 96.4 fL [facility] MCH 31.5 27.1 - 33.3 pg [facility] MCHC 35.8(H) 32.3 - 35.7 g/dL [facility] RDW CV 12.6 11.1 - 14.9 % [facility] RDW SD 40.7 35.7 - 48.1 fL [facility] NRBC abs 0.00 0.00 - 0.01 K/cumm [facility] Blood 06/05/2022 8:47 PM CDT 06/05/2022 9:45 PM CDT Conrad Weston Chi, MD LAB BLOOD ORDERABLES Ann Marie l Result Performing Organization Address [facility]/ZIP Co de Phone Number [facility] Department [place] [address] * (ABNORMAL) Comprehensive metabolic panel (06/05/2022 8:47 PM CDT) Pathologist [facility] Sodium 132(L) 135 - 145 mmol/L [facility] Potassium, pl 3.6 3.3 - 4.9 mmol/L [facility] Chloride 90(L) 97 - 110 mmol/L [facility] CO2 25 22 - 32 mmol/L [facility] Anion gap 17(H) 2 - 15 mmol/L [facility] BUN 84(H) 8 - 25 mg/dL [facility] Creatinine 9.77(H) 0.80 - 1.30 mg/dL [facility] Glucose 180 70 - 199 mg/dL [facility] Comment: Interpretive Data Fasting glucose >/= [...] 2017. Calcium 7.8(L) 8.5 - 10.3 mg/dL [facility] Bilirubin, total 0.6 0.1 - 1.2 mg/dL [facility] Protein, pl 6.3(L) 6.5 - 8.5 g/dL [facility] Albumin 3.4(L) 3.5 - 5.0 g/dL [facility] Alk phos 126 40 - 130 Units/L [facility] ALT 43 7 - 55 Units/L [facility] AST 46 10 - 50 Units/L [facility] Blood 06/05/2022 8:47 PM CDT 06/05/2022 9:46 PM CDT us Conrad Weston Chi, MD LAB BLOOD ORDERABLES Ann Marie kramer Result [facility] Department [place] [address] * Cell Differential, Body Fluid (06/05/2022 8:36 PM CDT) Total cells diffed 100 cells [facility] Comment: Interpretive Data Unless otherwise specified, the reference range and other method performance specifications have not been established for CSF/Body Fluid tests. ??The test results should be integrated into the clinical context for interpretation. Current interpretive data was last revised on 2019. Neutrophils, fld 4 % [facility] Lymphs, fld 9 % [facility] Monocyte, fld 68 % [facility] Macrophages, fld 18 % [facility] Mesothelial cells, fld 1 % [facility] Fluid 06/05/2022 8:36 PM CDT 06/05/2022 9:01 PM CDT Conrad Weston Chi, MD LAB BODY FLUIDS AND STOOL S ORDERABLES Final Result [facility] Department [place] [address] * Aerobic and anaerobic culture and gram stain Peritoneal dialysis fluid Abdominal (06/05/2022 8:36 PM CDT) Direct Specimen Exam Stain: Cytospin Gram stain shows: No polymorphonuclear leukocytes seen. Other cellular material present. No organisms seen. [facility] Report Final Report: No growth [facility] Peritoneal dialysis fluid (Abdominal) 06/05/2022 8:36 PM CDT 06/05/2022 11:56 PM CDT Narrative [facility] - 06/11/2022 1:37 PM CDT Testing performed by [facility] ([phone]) Specimens submitted from normally sterile body sites [...] L ORDERABLES Final Result Performing Organization Address [facility] Co de Phone Number [facility] [place] [address] * Cell count with reflex to differential, body fluid (06/05/2022 8:36 PM CDT) Specimen type, fld Peritoneal [facility] Color, fld Straw [facility] Clarity, fld Clear Clear [facility] Nucleated cells, fld 11 /cumm [facility] Comment: Interpretive Data Unless otherwise specified, the reference range and other method performance specifications have not been established for CSF/Body Fluid tests. ??The test results should be integrated into the clinical context for interpretation. Current interpretive data was last revised on 2019. RBC, fld 0 /cumm [facility] Fluid 06/05/2022 8:36 PM CDT 06/05/2022 9:01 PM CDT us Conrad Weston Chi, MD LAB BODY FLUIDS AND STOOL S ORDERABLES Final Result Performing Organization Address [facility] [place] [address] * Lipase (06/05/2022 6:39 PM CDT) Pathologist [facility] Lipase 14 10 - 99 Units/L [facility] Blood 06/05/2022 6:39 PM CDT 06/05/2022 6:53 PM CDT Conrad Weston Chi, MD LAB BLOOD ORDERABLES Ann Marie l Result Performing Organization Address [facility] Co de Phone Number [facility] [place] [address] * (ABNORMAL) aPTT (06/05/2022 6:34 PM CDT) aPTT 38(H) 27 - 37 sec [facility] Comment: Interpretive Data Therapeutic heparin range: 60.0 - 94.0 seconds. Based on correlation with therapeutic heparin activity range of 0.3-0.7 Units/mL. Current interpretive data was last revised on 2020. Blood 06/05/2022 6:34 PM CDT 06/05/2022 6:40 PM CDT us Conrad Weston Chi, MD LAB BLOOD ORDERABLES Ann Marie l Result [facility] Department [place] [address] * US RUQ (06/05/2022 6:12 PM CDT) [...] POC 275(H) 70 - 199 mg/dL [facility] Blood 06/05/2022 5:07 PM CDT 06/05/2022 5:07 PM CDT Conrad Weston Chi, MD LAB POCT ORDERABLES - DEV ICE Final Result [facility] Department [place] [address] * Blood culture Blood Antecubital, left (06/05/2022 5:06 PM CDT) Report Final Report: No growth [facility] Blood (Antecubital, left) 06/05/2022 5:06 PM [...] organism identification may be performed using the Jike Xueyuanigene Gram-Positive Blood Culture Assay. This assay detects microbial DNA in positive blood culture broth via hybridization of target DNA to capture oligonucleotides on a microarray. This assay has been cleared by the [place] Food and Drug Administration and its performance characteristics have been verified by the [facility]. 5. ?For questions about this culture, contact the Microbiology Laboratory at [phone]. Interpretive data was last revised on 2020. Conrad Weston Chi, MD LAB MICROBIOLOGY - GENERA L ORDERABLES Final Result Performing Organization Address [facility]/ZIP Co de Phone Number [facility] Department [place] [address] * Blood culture Blood Antecubital, right (06/05/2022 5:06 PM CDT) Report Final Report: No growth [facility] Blood (Antecubital, right) 06/05/2022 5:06 PM [...] organism identification may be performed using the Jike Xueyuanigene Gram-Positive Blood Culture Assay. This assay detects microbial DNA in positive blood culture broth via hybridization of target DNA to capture oligonucleotides on a microarray. This assay has been cleared by the [place] Food and Drug Administration and its performance characteristics have been verified by the [facility]. 5. ?For questions about this culture, contact the Microbiology Laboratory at [phone]. Interpretive data was last revised on 2020. Conrad Weston Chi, MD LAB MICROBIOLOGY - GENERA L ORDERABLES Final Result Performing Organization Address [facility]/State/ZIP Co de Phone Number [facility] Department [place] [address] * (ABNORMAL) Troponin I high-sensitivity (06/05/2022 4:07 PM CDT) Pathologist [facility] Trop I hs 4,266(C) <=35 ng/L [facility] Comment: Previous critical value noted within 48 hours ago. Interpretive Data For further [facility] resources including the diagnostic algorithm and an aid in interpretation, copy and paste this link: [email or web address]://bjhlab.testcatalog.org/show/[email or web address] Current Interpretive Data last revised 2020. Blood 06/05/2022 4:07 PM CDT 06/05/2022 4:27 PM CDT Conrad Weston Chi, MD LAB BLOOD ORDERABLES Ann Marie l Result Performing Organization Address [facility]/State/[facility] Co de Phone Number [facility] Department [place] [address] * (ABNORMAL) eGFR (06/05/2022 3:54 PM CDT) [facility] eGFR 6(L) 90 - 130 mL/min/1. 73 m2 [facility] Comment: Interpretive Data Reference Interval Normal [...] MD PhD LAB BLOOD ORDERABLES Final Result [facility] Department [place] [address] * (ABNORMAL) Differential, auto (06/05/2022 3:54 PM CDT) Neutrophil abs 9.2(H) 1.7 - 6.5 K/cumm [facility] Imm gran abs 0.1 0.0 - 0.1 K/cumm [facility] Lymphocyte abs 0.6(L) 0.8 - 3.3 K/cumm [facility] Monocyte abs 0.8 0.2 - 0.8 K/cumm [facility] Eosinophil abs 0.0 0.0 - 0.5 K/cumm [facility] Basophil abs 0.0 0.0 - 0.1 K/cumm [facility] Neutrophil pct 86.0 % [facility] Comment: Interpretive Data Percent cell count reference ranges are not reported, since discordance with absolute values may lead to misinterpretation of CBC data. Current Interpretive Data was last revised on 2017. Imm gran pct 0.8 % [facility] Comment: Interpretive Data Percent cell count reference ranges are not reported, since discordance with absolute values may lead to misinterpretation of CBC data. Current Interpretive Data was last revised on 2017. Lymphocyte pct 5.6 % [facility] Comment: Interpretive Data Percent cell count reference ranges are not reported, since discordance with absolute values may lead to misinterpretation of CBC data. Current Interpretive Data was last revised on 2017. Monocyte pct 7.4 % [facility] Comment: Interpretive Data Percent cell count reference ranges are not reported, since discordance with absolute values may lead to misinterpretation of CBC data. Current Interpretive Data was last revised on 2017. Eosinophil pct 0.1 % [facility] Comment: Interpretive Data Percent cell count reference ranges are not reported, since discordance with absolute values may lead to misinterpretation of CBC data. Current Interpretive Data was last revised on 2017. Basophil pct 0.1 % [facility] Comment: Interpretive Data Percent cell count reference ranges are not reported, since discordance with absolute values may lead to misinterpretation of CBC data. Current Interpretive Data was last revised on 2017. Blood 06/05/2022 3:54 PM CDT 06/05/2022 4:27 PM CDT Champ Osborne MD PhD LAB BLOOD ORDERABLES Final Result [facility] [place] [address] * Type and screen (06/05/2022 3:54 PM CDT) ABO Rh A Positive [facility] Maribel, indirect Negative [facility] Blood 06/05/2022 3:54 PM CDT 06/05/2022 4:18 PM CDT Narrative [facility] - 06/05/2022 5:07 PM CDT Has the patient had Daratumumab or Isatuximab in the past 6 months?->Unknown Champ Osborne MD PhD LAB BLOOD BANK TEST ORDERA BLES Final Result Performing Organization Address City/[facility]/ZIP Co de Phone Number [facility] [place] [address] * (ABNORMAL) aPTT (06/05/2022 3:54 PM CDT) Pathologist [facility] aPTT 45(H) 27 - 37 sec [facility] Comment: Interpretive Data Therapeutic heparin range: 60.0 - 94.0 seconds. Based on correlation with therapeutic heparin activity range of 0.3-0.7 Units/mL. Current interpretive data was last revised on 2020. Blood (Blood, Venous) 06/05/2022 3:54 PM CDT 06/05/2022 4:16 PM CDT Champ Osborne MD PhD LAB BLOOD ORDERABLES Final Result Performing Organization Address [facility] Co de Phone Number [facility] [place] [address] * Protime-INR (06/05/2022 3:54 PM CDT) [facility] PT 10.8 9.2 - 13.5 sec [facility] INR 1.0 0.9 - 1.2 [facility] Comment: Interpretive data Oral anticoagulant therapeutic [...] BLOOD ORDERABLES Final Result Performing Organization Address City/[facility]/ZIP Co de Phone Number [facility] [place] [address] * (ABNORMAL) CBC with auto differential (06/05/2022 3:54 PM CDT) [facility] WBC 10.7(H) 3.8 - 9.9 K/cumm [facility] Hgb 10.3(L) 13.0 - 17.5 g/dL [facility] Hct 29.1(L) 38.9 - 50.3 % [facility] Plt 238 150 - 400 K/cumm [facility] MPV 11.1 9.1 - 12.3 fL [facility] RBC 3.32(L) 4.30 - 5.80 M/cumm [facility] MCV 87.7 81.3 - 96.4 fL [facility] MCH 31.0 27.1 - 33.3 pg [facility] MCHC 35.4 32.3 - 35.7 g/dL [facility] RDW CV 12.5 11.1 - 14.9 % [facility] RDW SD 40.3 35.7 - 48.1 fL [facility] NRBC abs 0.00 0.00 - 0.01 K/cumm [facility] Blood 06/05/2022 3:54 PM CDT 06/05/2022 4:27 PM CDT Champ Osborne MD PhD LAB BLOOD ORDERABLES Final Result [facility] Department [place] [address] * Lactate (06/05/2022 3:54 PM CDT) Lactate 1.6 0.7 - 2.0 mmol/L [facility] Blood 06/05/2022 3:54 PM CDT 06/05/2022 4:27 PM CDT Champ Osborne MD PhD LAB BLOOD ORDERABLES Final Result [facility] [place] [address] * (ABNORMAL) Basic metabolic panel (06/05/2022 3:54 PM CDT) Sodium 132(L) 135 - 145 mmol/L [facility] Potassium, pl 4.1 3.3 - 4.9 mmol/L [facility] Chloride 87(L) 97 - 110 mmol/L [facility] CO2 26 22 - 32 mmol/L [facility] Anion gap 19(H) 2 - 15 mmol/L [facility] BUN 81(H) 8 - 25 mg/dL [facility] Creatinine 9.08(H) 0.80 - 1.30 mg/dL [facility] Glucose 276(H) 70 - 199 mg/dL [facility] Comment: Interpretive Data Fasting glucose >/= [...] 2017. Calcium 8.1(L) 8.5 - 10.3 mg/dL [facility] Blood 06/05/2022 3:54 PM CDT 06/05/2022 4:27 PM CDT us Champ Osborne MD PhD LAB BLOOD ORDERABLES Final Result Performing Organization Address City/[facility]/ZIP Co de Phone Number [facility] Department [place] [address] * (ABNORMAL) POCT glucose (06/05/2022 3:46 PM CDT) Glucose, POC 279(H) 70 - 199 mg/dL [facility] Blood 06/05/2022 3:46 PM CDT 06/05/2022 3:46 PM CDT Conrad Weston Chi, MD LAB POCT ORDERABLES - DEV ICE Final Result [facility] Department [place] [address] * (ABNORMAL) eGFR (06/05/2022 3:22 PM CDT) [facility] eGFR 6(L) 90 - 130 mL/min/1. 73 [...] ORDERABLES Final Result [facility] Department [place] [address] * (ABNORMAL) POCT PU-L-NAR-GLU-HCT, WB - ISTAT (06/05/2022 3:22 PM CDT) [facility] Na POC 126(L) 135 - 145 mmol/L [facility] K POC 3.6 3.3 - 4.9 mmol/L [facility] Comment: Interpretive Data This method is not able to assess for hemolysis, which may falsely increase potassium concentrations. If further testing is needed to evaluate this result, consider in-laboratory plasma potassium. Current Interpretive Data was last revised on 2022. Glucose POC i-STAT 287(H) 70 - 199 mg/dL [facility] Hct, POC 30.0(L) 38.9 - 50.3 % [facility] Blood 06/05/2022 3:22 PM CDT 06/05/2022 3:22 PM CDT Champ Osborne MD PhD LAB POCT ORDERABLES - APRIL CE Final Result Performing Organization Address [facility]/ZIP Co de Phone Number [facility] Department [place] [address] * Magnesium (06/05/2022 3:22 PM CDT) [facility] Magnesium 2.1 1.4 - 2.5 mg/dL [facility] Blood 06/05/2022 3:22 PM CDT 06/05/2022 3:59 PM CDT Champ Osborne MD PhD LAB BLOOD ORDERABLES Final Result Performing Organization Address City/[facility]/ZIP Co de Phone Number [facility] Department [place] [address] * (ABNORMAL) Basic metabolic panel (06/05/2022 3:22 PM CDT) [facility] Sodium 127(L) 135 - 145 mmol/L [facility] Potassium, pl 3.9 3.3 - 4.9 mmol/L [facility] Comment:Hemolyzed; Potassium value may be falsely elevated by as much as 0.3-0.5 mmol/L. Suggest redraw and reanalysis. Chloride 88(L) 97 - 110 mmol/L [facility] CO2 19(L) 22 - 32 mmol/L [facility] Anion gap 20(H) 2 - 15 mmol/L [facility] BUN 79(H) 8 - 25 mg/dL [facility] Creatinine 9.13(H) 0.80 - 1.30 mg/dL [facility] Glucose 294(H) 70 - 199 mg/dL [facility] Comment: Interpretive Data Fasting glucose >/= [...] 2017. Calcium 8.2(L) 8.5 - 10.3 mg/dL [facility] Blood 06/05/2022 3:22 PM CDT 06/05/2022 3:59 PM CDT Champ Osborne MD PhD LAB BLOOD ORDERABLES Final Result [facility] Department [place] [address] * (ABNORMAL) Troponin I high-sensitivity (06/05/2022 3:21 PM CDT) Trop I hs 4,261(C) <=35 ng/L [facility] Comment: Previous critical value noted within 48 hours ago. Interpretive Data For further [facility] resources including the diagnostic algorithm and an aid in interpretation, copy and paste this link: [email or web address]/[email or web address] Current Interpretive Data last revised 2020. Blood 06/05/2022 3:21 PM CDT 06/05/2022 3:59 PM CDT us Champ Osborne MD PhD LAB BLOOD ORDERABLES Final Result Performing Organization Address City/[facility]/ZIP Co de Phone Number [facility] [place] [address] * (ABNORMAL) Arterial Blood gas w/Lactate POCT (06/05/2022 3:17 PM CDT) Lactate POC i-STAT 2.0 0.7 - 2.2 mmol/L [facility] pH POC 7.38 7.35 - 7.45 [facility] pCO2, Art POC 37 35 - 45 mmHg [facility] PO2 POC 53(L) 80 - 105 mmHg [facility] CO2, total POC 23 20 - 30 mmol/L [facility] HCO3, POC 22 21 - 30 mmol/L [facility] BE POC -3(L) -2 - 3 mmol/L [facility] O2 sat POC 86(L) 95 - 98 % [facility] Blood 06/05/2022 3:17 PM CDT 06/05/2022 3:17 PM CDT us Champ Osborne MD PhD LAB BLOOD ORDERABLES Final Result Performing Organization Address [facility] Co de Phone Number [facility] Department [place] [address] * XR Chest 1 View (06/05/2022 3:15 [...] 12 lead (06/05/2022 2:52 PM CDT) Pathologist [facility] Ventricular Rate EKG/Min 73 BPM [facility] Atrial Rate 73 BPM [facility] OK-Interval (MSEC) 184 ms [facility] QRS-Interval (MSEC) 106 ms [facility] QT-Interval (MSEC) 442 ms [facility] QTc 486 ms [facility] P [place] 49 degrees [facility] R [place] -33 degrees [facility] T [place] 87 degrees [facility] Diagnosis Normal sinus rhythm Left axis deviation QS in V1 and V2, a nonspecific finding with multiple causes, including lead misplacement or septal infarction in 20% Abnormal ECG Confirmed by JESS BUSTOS M.D ([id number]) on 06/07/2022 8:30:06 AM [facility] 06/05/2022 2:52 PM CDT 06/07/2022 8:30 AM CDT Champ Osborne MD PhD ECG ORDERABLES Final Resu lt [facility] * (ABNORMAL) POCT glucose (06/05/2022 2:22 PM CDT) Pathologist [facility] Glucose, POC 389(H) 70 - 199 mg/dL [facility] Blood 06/05/2022 2:22 PM CDT 06/05/2022 2:22 PM CDT Champ Osborne MD PhD LAB POCT ORDERABLES - APRIL CE Final Result [facility] Department [place] [address] * Respiratory pathogen panel Nasopharyngeal (06/05/2022 1:05 PM CDT) Pathologist [facility] Influenza A RNA Not Detected Not Detected [facility] Influenza B RNA Not Detected Not Detected [facility] RSV RNA Not Detected Not Detected [facility] COVID-19 RNA Not Detected Not Detected [facility] Coronavirus 229E RNA Not Detected Not Detected [facility] Coronavirus HKU1 RNA Not Detected Not Detected [facility] Coronavirus NL63 RNA Not Detected Not Detected [facility] Coronavirus OC43 RNA Not Detected Not Detected [facility] Adenovirus DNA Not Detected Not Detected [facility] Metapneumovirus RNA Not Detected Not Detected [facility] Rhinovirus/Enterov irus RNA Not Detected Not Detected [facility] Parainfluenza 1 RNA Not Detected Not Detected [facility] Parainfluenza 2 RNA Not Detected Not Detected [facility] Parainfluenza 3 RNA Not Detected Not Detected [facility] Parainfluenza 4 RNA Not Detected Not Detected [facility] B. pertussis DNA Not Detected Not Detected [facility] B. parapertussis DNA Not Detected Not Detected [facility] C. pneumoniae DNA Not Detected Not Detected [facility] M. pneumoniae DNA Not Detected Not Detected [facility] Nasopharyngeal 06/05/2022 1: 05 PM CDT 06/05/2022 1:32 PM CDT Narrative [facility] - 06/05/2022 2:40 PM CDT Is the Patient experiencing symptoms consistent with COVID?->No Reason for testing?->Symptomatic Surveillance testing for transplant patient?->No ??Interpretive Data The [employer] Film[employer] Respiratory Panel (RP2.1) assay is a [...] assay has FDA clearance for testing of HEEL EMERY BUFFER swabs. ??The performance of additional specimen types has been assessed by the performing laboratory. ??The performance characteristics of this assay have been determined by [facility]. Current interpretive data was last revised on 22. Champ Osborne MD PhD LAB MICROBIOLOGY - GENERAL ORDERABLES Final Result [facility] Department [place] [address] * Lactate (06/05/2022 12:10 PM CDT) Lactate 2.0 0.7 - 2.0 mmol/L [facility] Blood 06/05/2022 12:1 0 PM CDT 06/05/2022 12:39 PM CDT us Champ Osborne MD PhD LAB BLOOD ORDERABLES Final Result [facility] [place] [address] * Beta-hydroxybutyrate (06/05/2022 12:10 PM CDT) Beta-Hydroxybut yrate <0.1 0.0 - 0.5 mmol/L [facility] Blood 06/05/2022 12:1 0 PM CDT 06/05/2022 12:34 PM CDT us Champ Osborne MD PhD LAB BLOOD ORDERABLES Final Result Performing Organization Address City/[facility]/ZIP Co de Phone Number [facility] [place] [address] * (ABNORMAL) POCT glucose (06/05/2022 11:23 AM CDT) Glucose, POC 402(H) 70 - 199 mg/dL [facility] Glucose comment 1 Glu2: RN/MD Notified [facility] Blood 06/05/2022 11:2 3 AM CDT 06/05/2022 11:23 AM CDT us Champ Osborne MD PhD LAB POCT ORDERABLES - APRIL CE Final Result [facility] [place] [address] * aPTT (06/05/2022 11:04 AM CDT) aPTT 29 27 - 37 sec [facility] Comment: Interpretive Data Therapeutic heparin range: 60.0 - 94.0 seconds. Based on correlation with therapeutic heparin activity range of 0.3-0.7 Units/mL. Current interpretive data was last revised on 2020. Blood 06/05/2022 11:0 4 AM CDT 06/05/2022 12:39 PM CDT Champ Osborne MD PhD LAB BLOOD ORDERABLES Final Result Performing Organization Address [facility] Co de Phone Number [facility] [place] [address] * (ABNORMAL) POCT glucose (06/05/2022 10:07 AM CDT) Glucose, POC 403(H) 70 - 199 mg/dL [facility] Blood 06/05/2022 10:0 7 AM CDT 06/05/2022 10:07 AM CDT Champ Osborne MD PhD LAB POCT ORDERABLES - APRIL CE Final Result Performing Organization Address [facility] Co de Phone Number [facility] [place] [address] * (ABNORMAL) POCT glucose (06/05/2022 8:47 AM CDT) Glucose, POC 398(H) 70 - 199 mg/dL [facility] Blood 06/05/2022 8:47 AM CDT 06/05/2022 8:47 AM CDT Champ Osborne MD PhD LAB POCT ORDERABLES - APRIL CE Final Result Performing Organization Address [facility] Co de Phone Number [facility] [place] [address] * (ABNORMAL) POCT glucose (06/05/2022 8:45 AM CDT) Glucose, POC 458(C) 70 - 199 mg/dL [facility] Glucose comment 1 Glu2: RN/MD Notified [facility] Blood 06/05/2022 8:45 AM CDT 06/05/2022 8:45 AM CDT us Champ Osborne MD PhD LAB POCT ORDERABLES - APRIL CE Final Result Performing Organization Address [facility] Co de Phone Number [facility] [place] [address] * (ABNORMAL) POCT glucose (06/05/2022 6:33 AM CDT) Glucose, POC 373(H) 70 - 199 mg/dL [facility] Blood 06/05/2022 6:33 AM CDT 06/05/2022 6:33 AM CDT us Cahmp Osborne MD PhD LAB POCT ORDERABLES - APRIL CE Final Result Performing Organization Address [facility] de Phone Number [facility] [place] [address] * IR Outside Reference (06/05/2022 5:59 AM CDT) Impressions [facility] - 06/05/2022 5:59 AM CDT These images are for Reference purposes only and have not been reviewed by [facility]. ??There will be no report generated by a [facility] Radiologist. Narrative [facility] - 06/05/2022 5:59 AM CDT EXAMINATION: ??Images For Reference Purposes Only us Carrington Weber MD IMG IR PROCEDURES Final Result Performing Organization Address [facility] Co de Phone Number [email or web address] * XR Outside Reference (06/05/2022 5:57 AM CDT) Impressions [email or web address] - 06/05/2022 5:57 AM CDT These images are for Reference purposes only and have not been reviewed by [facility]. ??There will be no report generated by a [facility] Radiologist. Narrative [facility] - 06/05/2022 5:57 AM CDT EXAMINATION: ??Images For Reference Purposes Only Carrington Weber MD IMG XR PROCEDURES Final Result Performing Organization Address [facility] Co de Phone Number [email or web address] * US Outside Reference (06/05/2022 5:56 AM CDT) Impressions [email or web address] - 06/05/2022 5:56 AM CDT These images are for Reference purposes only and have not been reviewed by [facility]. ??There will be no report generated by a [facility] Radiologist. Narrative [facility] - 06/05/2022 5:56 AM CDT EXAMINATION: ??Images For Reference Purposes Only Carrington Weber MD IMG US PROCEDURES Final Result Performing Organization Address [facility] de Phone Number [email or web address] * CT Body Outside Reference (06/05/2022 5:54 AM CDT) Impressions [email or web address] - 06/05/2022 5:54 AM CDT These images are for Reference purposes only and have not been reviewed by [facility]. ??There will be no report generated by a [facility] Radiologist. Narrative [facility] - 06/05/2022 5:54 AM CDT EXAMINATION: ??Images For Reference Purposes Only Carrington Weber MD IMG CT PROCEDURES Final Result Performing Organization Address [facility] Co de Phone Number [email or web address] * (ABNORMAL) Troponin I high-sensitivity 2-hour (06/05/2022 4:27 AM CDT) Trop I hs 4,555(C) <=35 ng/L [facility] Comment: Previous critical value noted within 48 hours ago. Interpretive Data For further hscTnI resources including the diagnostic algorithm and an aid in interpretation, copy and paste this link: https://bjhlab.testcatalog.org/show/[email or web address] Current Interpretive Data last revised 2020. Trop I hs pct delta -1 % [facility] Trop I hs interp Insignificant [facility] Blood 06/05/2022 4:27 AM CDT 06/05/2022 5:21 AM CDT Champ Osborne MD PhD LAB BLOOD ORDERABLES Final Result Performing Organization Address [facility] Co de Phone Number [facility] [place] [address] * (ABNORMAL) aPTT (06/05/2022 4:27 AM CDT) aPTT 23(L) 27 - 37 sec [facility] Comment: Interpretive Data Therapeutic heparin range: 60.0 - 94.0 seconds. Based on correlation with therapeutic heparin activity range of 0.3-0.7 Units/mL. Current interpretive data was last revised on 2020. Blood 06/05/2022 4:27 AM CDT 06/05/2022 5:50 AM CDT Narrative [facility] - 06/05/2022 6:00 AM CDT Baseline prior to heparin initiation Champ Osborne MD PhD LAB BLOOD ORDERABLES Final Result Performing Organization Address City/[facility] Co de Phone Number [facility] [place] [address] * Protime-INR (06/05/2022 4:27 AM CDT) PT 10.1 9.2 - 13.5 sec [facility] INR 0.9 0.9 - 1.2 [facility] Comment: Interpretive data Oral anticoagulant therapeutic ranges: Venous thromboembolism prophylaxis or treatment: 2.0-3.0 CARDIOLOGY Standard range: 2.0-3.0 High-intensity range: 2.5-3.5 Refer to indication-specific guidelines for appropriate target ranges for prosthetic heart valve replacement. Current interpretive data was last revised on 2019. Blood 06/05/2022 4:27 AM CDT 06/05/2022 5:50 AM CDT Narrative [facility] - 06/05/2022 6:00 AM CDT Baseline prior to heparin initiation Champ Osborne MD PhD LAB BLOOD ORDERABLES Final Result Performing Organization Address [facility] de Phone Number [facility] [place] [address] * (ABNORMAL) Troponin I high-sensitivity series (baseline, 2hr, 4hr, 6hr) (06/05/2022 2:37 AM CDT) Trop I hs 4,614(C) <=35 ng/L [facility] Comment: Previous critical value noted within 48 hours ago. Interpretive Data For further hscTnI resources including the diagnostic algorithm and an aid in interpretation, copy and paste this link: https://bjhlab.testcatalog.org/show/[email or web address] Current Interpretive Data last revised 2020. Blood 06/05/2022 2:37 AM CDT 06/05/2022 3:30 AM CDT Champ Osborne MD PhD LAB BLOOD ORDERABLES Final Result Performing Organization Address [facility] Co de Phone Number [facility] [place] [address] * POCT glucose (06/04/2022 11:04 PM CDT) Glucose, POC 191 70 - 199 mg/dL [facility] Blood 06/04/2022 11:0 4 PM CDT 06/04/2022 11:04 PM CDT us Champ Osborne MD PhD LAB POCT ORDERABLES - APRIL CE Final Result Performing Organization Address [facility] Co de Phone Number [facility] Department [place] [address] * ECG 12 lead (06/04/2022 10:59 PM CDT) [facility] Ventricular Rate EKG/Min 47 BPM [facility] Atrial Rate 47 BPM [facility] OK-Interval (MSEC) 228 ms [facility] QRS-Interval (MSEC) 116 ms [facility] QT-Interval (MSEC) 532 ms [facility] QTc 470 ms [facility] P [place] 39 degrees [facility] R [place] -33 degrees [facility] T [place] 105 degrees [facility] Diagnosis Sinus bradycardia with 1st degree A-V block Left axis deviation Incomplete left bundle branch block Nonspecific ST and T wave abnormality Long QTc When compared with ECG of 23-MAR-2017 00:14, OK interval has increased QTc has increased Rate has decreased by 15 bpm Incomplete left bundle branch block is now Present Criteria for Septal infarct are not Present Confirmed by KENN BILLINGSLEY M.D ([id number]) on 06/06/2022 9:57:10 PM [facility] 06/04/2022 10:5 9 PM CDT 06/06/2022 9:57 PM CDT us Catherine Adams MD ECG ORDERABLES Final Resul t Performing Organization Address City/[facility] Co de Phone Number [facility] * (ABNORMAL) Hemoglobin A1c (06/04/2022 10:52 PM CDT) [facility] Hgb A1C 7.8(H) 4.0 - 5.6 % [facility] Estimated Average Glucose 177 mg/dL [facility] Comment: The ADA recommends reporting an [...] BLOOD ORDERABLES Final Result Performing Organization Address [facility] Co de Phone Number [facility] [place] [address] * Beta-hydroxybutyrate (06/04/2022 10:52 PM CDT) Beta-Hydroxybut yrate <0.1 0.0 - 0.5 mmol/L [facility] Blood 06/04/2022 10:5 2 PM CDT 06/05/2022 Champ Osborne MD PhD LAB BLOOD ORDERABLES Final Result Performing Organization Address [facility] de Phone Number [facility] [place] [address] * (ABNORMAL) Lipid panel (06/04/2022 10:52 PM CDT) Cholesterol 149 30 - 199 mg/dL [facility] Comment: Interpretive Data Ages < or [...] revised on 2018. Triglycerides 165(H) <=149 mg/dL [facility] Comment: Interpretive Data Ages < or [...] revised on 2018. HDL 34(L) >=40 mg/dL [facility] Comment: Interpretive Data Ages < or [...] on 2018. LDL, calculated 82 <=129 mg/dL [facility] Comment: Interpretive Data Ages < or [...] MD PhD LAB BLOOD ORDERABLES Final [facility] Department [place] [address] * Critical result callback Cardio chemistry (06/04/2022 10:52 PM CDT) Date Notified [id number] ALESSANDRA CARRION Time Notified 99 ALESSANDRA CARRION Test name Trop ALESSANDRA CARRION Called/Read Back Denisse CARRION Credentials RN [facility] Called By jose manuel [facility] Blood 06/04/2022 10:5 2 PM CDT 06/04/2022 11:56 PM CDT Catherine Adams MD LAB BLOOD ORDERABLES Final Result [facility] Department [place] [address] * (ABNORMAL) eGFR (06/04/2022 10:52 PM CDT) eGFR 6(L) 90 - 130 mL/min/1. 73 m2 [facility] Comment: Interpretive Data Reference Interval Normal [...] Adams MD LAB BLOOD ORDERABLES Final Result [facility] Department [place] [address] * Differential, auto (06/04/2022 10:52 PM CDT) Neutrophil abs 6.1 1.7 - 6.5 K/cumm [facility] Imm gran abs 0.1 0.0 - 0.1 K/cumm [facility] Lymphocyte abs 0.8 0.8 - 3.3 K/cumm [facility] Monocyte abs 0.8 0.2 - 0.8 K/cumm [facility] Eosinophil abs 0.0 0.0 - 0.5 K/cumm [facility] Basophil abs 0.0 0.0 - 0.1 K/cumm [facility] Neutrophil pct 79.1 % [facility] Comment: Interpretive Data Percent cell count reference ranges are not reported, since discordance with absolute values may lead to misinterpretation of CBC data. Current Interpretive Data was last revised on 2017. Imm gran pct 0.6 % [facility] Comment: Interpretive Data Percent cell count reference ranges are not reported, since discordance with absolute values may lead to misinterpretation of CBC data. Current Interpretive Data was last revised on 2017. Lymphocyte pct 10.1 % [facility] Comment: Interpretive Data Percent cell count reference ranges are not reported, since discordance with absolute values may lead to misinterpretation of CBC data. Current Interpretive Data was last revised on 2017. Monocyte pct 10.2 % [facility] Comment: Interpretive Data Percent cell count reference ranges are not reported, since discordance with absolute values may lead to misinterpretation of CBC data. Current Interpretive Data was last revised on 2017. Eosinophil pct 0.0 % [facility] Comment: Interpretive Data Percent cell count reference ranges are not reported, since discordance with absolute values may lead to misinterpretation of CBC data. Current Interpretive Data was last revised on 2017. Basophil pct 0.0 % [facility] Comment: Interpretive Data Percent cell count reference ranges are not reported, since discordance with absolute values may lead to misinterpretation of CBC data. Current Interpretive Data was last revised on 2017. Blood 06/04/2022 10:5 2 PM CDT 06/04/2022 11:56 PM CDT Result [facility] Catherine Adams MD LAB BLOOD ORDERABLES Final Result Performing Organization Address [facility] de Phone Number [facility] [place] [address] * (ABNORMAL) Troponin I high-sensitivity (06/04/2022 10:52 PM CDT) Trop I hs 4,797(C) <=35 ng/L [facility] Comment: Interpretive Data For further hscTnI resources including the diagnostic algorithm and an aid in interpretation, copy and paste this link: [email or web address].testcatalog.org/show/[email or web address] Current Interpretive Data last revised 2020. Blood 06/04/2022 10:5 2 PM CDT 06/04/2022 11:56 PM CDT Result [facility] Catherine Adams MD LAB BLOOD ORDERABLES Final Result Performing Organization Address [facility] Phone Number [facility] [place] [address] * (ABNORMAL) Pro B-type natriuretic peptide (06/04/2022 10:52 PM CDT) NT-proBNP 15,490(H) <=300 pg/mL [facility] Comment: Interpretive Comments: A. Dyspnea in Acute [...] MD LAB BLOOD ORDERABLES Final Result [facility] Department of Laboratories [place], [place] [id number] * (ABNORMAL) CBC with auto differential (06/04/2022 10:52 PM CDT) Pathologist [facility] WBC 7.7 3.8 - 9.9 K/cumm [facility] Hgb 9.5(L) 13.0 - 17.5 g/dL [facility] Hct 27.2(L) 38.9 - 50.3 % [facility] Plt 195 150 - 400 K/cumm [facility] MPV 11.3 9.1 - 12.3 fL [facility] RBC 3.10(L) 4.30 - 5.80 M/cumm [facility] MCV 87.7 81.3 - 96.4 fL [facility] MCH 30.6 27.1 - 33.3 pg [facility] MCHC 34.9 32.3 - 35.7 g/dL [facility] RDW CV 12.5 11.1 - 14.9 % [facility] RDW SD 40.2 35.7 - 48.1 fL [facility] NRBC abs 0.00 0.00 - 0.01 K/cumm [facility] Blood 06/04/2022 10:5 2 PM CDT 06/04/2022 11:56 PM CDT us Catherine Adams MD LAB BLOOD ORDERABLES Final Result [facility] Department [place] [address] * (ABNORMAL) Comprehensive metabolic panel (06/04/2022 10:52 PM CDT) [facility] Sodium 129(L) 135 - 145 mmol/L [facility] Potassium, pl 4.0 3.3 - 4.9 mmol/L [facility] Chloride 88(L) 97 - 110 mmol/L [facility] CO2 24 22 - 32 mmol/L [facility] Anion gap 17(H) 2 - 15 mmol/L [facility] BUN 82(H) 8 - 25 mg/dL [facility] Creatinine 8.95(H) 0.80 - 1.30 mg/dL [facility] Glucose 185 70 - 199 mg/dL [facility] Comment: Interpretive Data Fasting glucose >/= [...] Calcium 8.6 8.5 - 10.3 mg/dL [facility] Bilirubin, total 0.5 0.1 - 1.2 mg/dL [facility] Protein, pl 6.5 6.5 - 8.5 g/dL [facility] Albumin 3.6 3.5 - 5.0 g/dL [facility] Alk phos 115 40 - 130 Units/L [facility] ALT 37 7 - 55 Units/L [facility] AST 53(H) 10 - 50 Units/L [facility] Blood 06/04/2022 10:5 2 PM CDT 06/04/2022 11:56 PM CDT Catherine Adams MD LAB BLOOD ORDERABLES Final Result [facility] Department [place] [address] * XR Chest 1 View (06/04/2022 10:50 [...] Diagnoses Diagnosis NSTEMI (non-ST elevated myocardial infarction) ([facility]) ([facility])- Primary Acute myocardial infarction, subendocardial infarction, episode of care unspecified Diagnosis unknown Coronary artery disease involving [place] heart without angina pectoris, unspecified vessel or lesion type Unstable angina ([facility]) ([facility]) Intermediate coronary syndrome Hyperlipidemia, unspecified hyperlipidemia type Hypotension, unspecified hypotension type Acute hypoxemic respiratory failure ([facility]) Angina pectoris ([facility]) Other and unspecified angina pectoris End stage renal disease ([facility]) ([facility]) End stage renal disease Acute hypoxemic respiratory failure ([facility]) Type 1 diabetes mellitus ([facility]) Anemia Unspecified anemia ESRD (end stage renal disease) ([facility]) ([facility]) End stage renal disease Acute on chronic HFrEF (heart failure with reduced ejection fraction) ([facility]) Atrial fibrillation ([facility]) ([facility]) Atrial fibrillation Cardiogenic shock ([facility]) Cardiogenic shock CAD (coronary artery disease) Coronary atherosclerosis of unspecified type of vessel, [place] or graft Unstable angina ([facility]) ([facility]) Intermediate coronary syndrome Hypotension, unspecified hypotension type documented in this encounter Admitting Diagnoses Diagnosis Angina pectoris ([facility]) Other and unspecified angina pectoris Hypotension Unspecified hypotension documented in this encounter Administered Medications Inactive Administered Medications - up to 3 most recent administrations Medication Order MAR Action Action Date Dose Rate Site acetaminophen (TYLENOL) tablet 1,000 mg 1,000 mg, oral, Every 6 hours PRN, 1st line for pain, headaches, fever, Starting on Mon06/22/22 at 1930 Given 06/27/2022 5:47 PM OBIEE OBIA SOLUTION ARCHITECT 1,000 mg acetaminophen (TYLENOL) tablet 325 mg [...] 2 puff, inhalation, Every 6 hours PRN (vp respiratory), wheezing, shortness of breath, Starting on Mon06/05/22 [...] 06/23/22 at 0900 Given 06/29/2022 8:23 AM OBIEE OBIA SOLUTION ARCHITECT 81 mg Given 06/28/2022 8:56 AM OBIEE OBIA SOLUTION ARCHITECT 81 mg Given 06/27/2022 8:17 AM OBIEE OBIA SOLUTION ARCHITECT 81 mg aspirin enteric coated tablet 81 mg 81 mg, oral, Daily, First dose on [place] 06/05/22 at 0900, Do not crush, chew, [...] 06/23/22 at 0900 Given 06/29/2022 8:23 AM OBIEE OBIA SOLUTION ARCHITECT 80 mg Given 06/28/2022 8:56 AM OBIEE OBIA SOLUTION ARCHITECT 80 mg Given 06/27/2022 8:18 AM OBIEE OBIA SOLUTION ARCHITECT 80 mg azithromycin (ZITHROMAX) tablet 500 mg [...] Mon06/22/22 at 1000 Given 06/29/2022 8:23 AM OBIEE OBIA SOLUTION ARCHITECT 0.25 mcg Given 06/28/2022 8:56 AM OBIEE OBIA SOLUTION ARCHITECT 0.25 mcg Given 06/27/2022 8:17 AM OBIEE OBIA SOLUTION ARCHITECT 0.25 mcg calcium acetate(phosphat bind) (PHOSLO) capsule 667 mg 667 mg, oral, 4 times daily, First dose on Mon06/05/22 at 0800, Take with food Given 06/29/2022 12:34 PM OBIEE OBIA SOLUTION ARCHITECT 667 mg Given 06/29/2022 8:23 AM OBIEE OBIA SOLUTION ARCHITECT 667 mg Given 06/28/2022 9:00 PM OBIEE OBIA SOLUTION ARCHITECT 667 mg calcium carbonate (TUMS) chewable tablet [...] 06/23/22 at 0900 Given 06/29/2022 8:23 AM OBIEE OBIA SOLUTION ARCHITECT 75 mg Given 06/28/2022 8:56 AM OBIEE OBIA SOLUTION ARCHITECT 75 mg Given 06/27/2022 8:18 AM OBIEE OBIA SOLUTION ARCHITECT 75 mg dexmedeTOMIDine in 0.9% sodium chloride [...] DialysisIndications:Peritoneal Dialysis New Bag 06/26/2022 7:38 PM OBIEE OBIA SOLUTION ARCHITECT Dianeal low calcium-dextrose 2.5 % 2,500 mL [...] DialysisIndications:Peritoneal Dialysis New Bag 06/27/2022 8:07 PM OBIEE OBIA SOLUTION ARCHITECT Dianeal low calcium-dextrose 2.5 % 2,500 mL dialysis solution intraperitoneal, Continuous, Starting on Tu06/28/22 at 1245, For 24 hours, CCPD bag number: 3, Indications: Peritoneal DialysisIndications:Peritoneal Dialysis New Bag 06/28/2022 8:04 PM OBIEE OBIA SOLUTION ARCHITECT Dianeal low calcium-dextrose 2.5 % 5,000 mL [...] DialysisIndications:Peritoneal Dialysis New Bag 06/26/2022 7:37 PM OBIEE OBIA SOLUTION ARCHITECT Dianeal low calcium-dextrose 2.5 % 5,000 mL dialysis solution intraperitoneal, Continuous, Starting on Mon06/26/22 at 1345, For 24 hours, CCPD bag number: 2, Indications: Peritoneal DialysisIndications:Peritoneal Dialysis New Bag 06/26/2022 7:37 PM OBIEE OBIA SOLUTION ARCHITECT Dianeal low calcium-dextrose 2.5 % 5,000 mL dialysis solution intraperitoneal, Continuous, Starting on Mon06/27/22 at 1630, For 24 hours, CCPD bag number: 1, Indications: Peritoneal DialysisIndications:Peritoneal Dialysis New Bag 06/27/2022 8:06 PM OBIEE OBIA SOLUTION ARCHITECT Dianeal low calcium-dextrose 2.5 % 5,000 mL dialysis solution intraperitoneal, Continuous, Starting on Mon06/27/22 at 1630, For 24 hours, CCPD bag number: 2, Indications: Peritoneal DialysisIndications:Peritoneal Dialysis New Bag 06/27/2022 8:06 PM OBIEE OBIA SOLUTION ARCHITECT Dianeal low calcium-dextrose 2.5 % 5,000 mL dialysis solution intraperitoneal, Continuous, Starting on Mon06/28/22 at 1245, For 24 hours, CCPD bag number: 1, Indications: Peritoneal DialysisIndications:Peritoneal Dialysis New Bag 06/28/2022 8:05 PM OBIEE OBIA SOLUTION ARCHITECT Dianeal low calcium-dextrose 2.5 % 5,000 mL dialysis solution intraperitoneal, Continuous, Starting on Mon06/28/22 at 1245, For 24 hours, CCPD bag number: 2, Indications: Peritoneal DialysisIndications:Peritoneal Dialysis New Bag 06/28/2022 8:05 PM OBIEE OBIA SOLUTION ARCHITECT Dianeal low calcium-dextrose 4.25 % 5,000 mL [...] solution 160 mcg/hr (8 mL/hr), nebulization, Continuous (vp respiratory), Starting on Mon06/07/22 at 1415, For monitoring [...] solution 120 mcg/hr (6 mL/hr), nebulization, Continuous (vp respiratory), Starting on Mon06/08/22 at 0800, For monitoring [...] solution 80 mcg/hr (4 mL/hr), nebulization, Continuous (vp respiratory), Starting on [place] 06/09/22 at 0315, For [...] solution 120 mcg/hr (6 mL/hr), nebulization, Continuous (vp respiratory), Starting on Mon06/09/22 at 0645, For monitoring [...] solution 40 mcg/hr (2 mL/hr), nebulization, Continuous (vp respiratory), Starting on Mon06/10/22 at 0600, Request only [...] DialysisIndications:Peritoneal Dialysis New Bag 06/27/2022 8:07 PM OBIEE OBIA SOLUTION ARCHITECT Extraneal 7.5% AMBU-FLEX 2,500 mL dialysis solution intraperitoneal, Continuous, Starting on 06/28/22 at 1245, For 24 hours, CCPD bag number: 4, Indications: Peritoneal DialysisIndications:Peritoneal Dialysis New Bag 06/28/2022 8:05 PM OBIEE OBIA SOLUTION ARCHITECT Extraneal 7.5% ULTRABAG 2,000 mL dialysis solution intraperitoneal, Continuous, Starting on 06/04/22 at 2330, For 24 hours, Indications: Peritoneal DialysisIndications:Peritoneal Dialysis New Bag 06/05/2022 1:44 AM CDT Extraneal 7.5% ULTRABAG 2,000 mL dialysis solution intraperitoneal, Continuous, Starting on 06/26/22 at 1345, For 24 hours, Indications: Peritoneal DialysisIndications:Peritoneal Dialysis New Bag 06/26/2022 7:38 PM OBIEE OBIA SOLUTION ARCHITECT ezetimibe (ZETIA) tablet 10 mg 10 mg, [...] 06/23/22 at 0900 Given 06/29/2022 8:23 AM OBIEE OBIA SOLUTION ARCHITECT 10 mg Given 06/28/2022 8:56 AM OBIEE OBIA SOLUTION ARCHITECT 10 mg Given 06/27/2022 8:18 AM OBIEE OBIA SOLUTION ARCHITECT 10 mg fentaNYL (SUBLIMAZE) bolus from bag [...] Infection ProphylaxisIndications:Infection Prophylaxis Given 06/28/2022 8:05 PM OBIEE OBIA SOLUTION ARCHITECT glucagon injection 1 mg 1 mg, intramuscular, [...] lumens post treatment. Give volume based upon floor person's recommendation (range 1.5 - 3 mL) in [...] lumens post treatment. Give volume based upon floor person's recommendation (range 1.5 - 3 mL) in each lumen., Indications: prevent clotting in catheterIndications:prevent clotting in catheter Given 06/15/2022 6:26 AM CDT 2.8 mL heparin 1,000 unit/mL injection 1.5-6.9 mL 1.5-6.9 mL, intra-catheter, Every 2 hours PRN, prevent clotting in catheter, Starting on 06/18/22 at 1239, [place] volume of catheter lumens post treatment. Give volume based upon floor person's recommendation (range 1.5 - 3 mL) in each lumen., Indications: prevent clotting in catheterIndications:prevent clotting in catheter Given 06/18/2022 9:41 PM CDT 3 mL heparin 1,000 unit/mL injection 1.5-6.9 mL 1.5-6.9 mL, intra-catheter, Once, On 06/20/22 at 1300, For 1 dose, Indwell volume of catheter lumens post treatment. Give volume based upon floor person's recommendation (usual range 1.2 - 3 mL) [...] Vein Thrombosis Prevention Given 06/29/2022 12:34 PM OBIEE OBIA SOLUTION ARCHITECT 5,000 Units Left Lower Abdomen Given 06/29/2022 5:01 AM OBIEE OBIA SOLUTION ARCHITECT 5,000 Units L eft Lower Abdomen Given 06/28/2022 9:00 PM OBIEE OBIA SOLUTION ARCHITECT 5,000 Units L eft Upper Abdomen heparin [...] 4:51 PM CDT 100 mg influenza quadrivalent [id number] (FLULAVAL,FLUARIX,FLUZONE) 60 mcg (15 mcg x 4)/0.5 [...] Diabetes MellitusIndications:Diabetes Mellitus Given 06/26/2022 9:15 AM OBIEE OBIA SOLUTION ARCHITECT 33 Units Right Upper Arm Given 06/25/2022 [...] Diabetes MellitusIndications:Diabetes Mellitus Given 06/27/2022 8:18 AM OBIEE OBIA SOLUTION ARCHITECT 35 Units Right Upper Arm insulin lispro [...] Every 4 hours scheduled, First dose on [place] 06/16/22 at 1315, Blood glucose mg/dL: 149 [...] Diabetes MellitusIndications:Diabetes Mellitus Given 06/27/2022 12:08 PM OBIEE OBIA SOLUTION ARCHITECT 4 Units Left Lower Abdomen Given 06/27/2022 8:20 AM OBIEE OBIA SOLUTION ARCHITECT 8 Units Ri ght Upper Arm Given 06/26/2022 2:14 PM OBIEE OBIA SOLUTION ARCHITECT 4 Units Ri ght Upper Arm insulin [...] Diabetes MellitusIndications:Diabetes Mellitus Given 06/26/2022 10:00 PM OBIEE OBIA SOLUTION ARCHITECT 1 Units Righ t Upper Arm Given [...] for NPO Status Given 06/27/2022 2:00 AM OBIEE OBIA SOLUTION ARCHITECT 3 Units Left Upper Arm Given 06/26/2022 [...] meals, First dose (after last modification) on [place] 06/26/22 at 1300, Post-meal if he takes at least 25g of carbs or eats at least 50% of meal Given 06/27/2022 12:07 PM OBIEE OBIA SOLUTION ARCHITECT 10 Units Left Lower Abdomen Given 06/27/2022 8:18 AM OBIEE OBIA SOLUTION ARCHITECT 10 Units Ri ght Upper Arm Given 06/26/2022 6:59 PM OBIEE OBIA SOLUTION ARCHITECT 10 Units Le ft Upper Arm insulin [...] Indications: HyperglycemiaIndications:Hype rglycemia Given 06/26/2022 9:15 AM OBIEE OBIA SOLUTION ARCHITECT 2 Units Right Upper Arm insulin lispro [...] 50% of meal Given 06/26/2022 9:15 AM OBIEE OBIA SOLUTION ARCHITECT 8 Units Right Upper Arm Given 06/25/2022 [...] MellitusIndications:Diabet es Mellitus Given 06/26/2022 10:00 PM OBIEE OBIA SOLUTION ARCHITECT 40 Units Right Upper Arm insulin regular [...] Self Administered Via Pump 06/29/2022 12:34 PM OBIEE OBIA SOLUTION ARCHITECT 8 Units Left Lower Abdomen Self Administered Via Pump 06/29/2022 8:27 AM OBIEE OBIA SOLUTION ARCHITECT 7 Units Left Lower Abdomen Self Administered Via Pump 06/28/2022 5:55 PM OBIEE OBIA SOLUTION ARCHITECT 4.3 Unit s Left Lower Abdomen isosorbide [...] otherwise manipulate tablet/capsule. Given 06/29/2022 8:22 AM OBIEE OBIA SOLUTION ARCHITECT 30 m g Given 06/28/2022 8:56 AM OBIEE OBIA SOLUTION ARCHITECT 30 mg Given 06/27/2022 8:18 AM OBIEE OBIA SOLUTION ARCHITECT 30 mg lidocaine (LIDODERM) 5 % patch [...] 06/25/22 at 0900 Given 06/29/2022 8:22 AM OBIEE OBIA SOLUTION ARCHITECT 12.5 mg Given 06/28/2022 8:56 AM OBIEE OBIA SOLUTION ARCHITECT 12.5 mg Given 06/27/2022 8:17 AM OBIEE OBIA SOLUTION ARCHITECT 12.5 mg magnesium sulfate 2 g/50 mL [...] Mon06/26/22 at 1015 Given 06/26/2022 2:15 PM OBIEE OBIA SOLUTION ARCHITECT 25 mg metoprolol tartrate (LOPRESSOR) immediate release tablet 25 mg 25 mg, oral, 2 times daily, First dose (after last modification) on Mon06/27/22 at 0900 Given 06/29/2022 8:22 AM OBIEE OBIA SOLUTION ARCHITECT 25 mg Given 06/28/2022 9:00 PM OBIEE OBIA SOLUTION ARCHITECT 25 mg Given 06/28/2022 8:56 AM OBIEE OBIA SOLUTION ARCHITECT 25 mg metoprolol tartrate (LOPRESSOR) immediate release [...] mL/hr), 1 mg/mL, intravenous, Titrated, Starting on [facility] 06/11/22 at 0145, Until [facility] 06/15/22 at 0738, Titration Instructions: Titrate, [...] Starting on [place] 06/16/22 at 1700, Until [place] 06/19/22 at 1756, Titration Instructions: Titrate, Initial [...] GI BleedIndications:GI Bleed Given 06/29/2022 8:22 AM OBIEE OBIA SOLUTION ARCHITECT 40 mg Given 06/28/2022 8:56 AM OBIEE OBIA SOLUTION ARCHITECT 40 mg Given 06/27/2022 8:18 AM OBIEE OBIA SOLUTION ARCHITECT 40 mg perflutren protein-a (OPTISON) 0.22 mg/mL [...] 06/16/22 at 2100 Given 06/29/2022 12:34 PM OBIEE OBIA SOLUTION ARCHITECT 1 drop Given 06/29/2022 8:22 AM OBIEE OBIA SOLUTION ARCHITECT 1 drop Given 06/28/2022 9:01 PM OBIEE OBIA SOLUTION ARCHITECT 1 drop potassium chloride (KLOR-CON) packet 40 [...] otherwise manipulate tablet/capsule. Given 06/27/2022 8:57 AM OBIEE OBIA SOLUTION ARCHITECT 20 mEq potassium chloride ER (KLOR-CON) extended [...] after the 1st dose is administered. CT Toilet And Laundry Soap Supervisor South: 7-[address] Toilet And Laundry Soap Supervisor North: 7-5 After , Indications: IV Contrast [...] until manually unheld Given 06/26/2022 9:17 AM OBIEE OBIA SOLUTION ARCHITECT 500 mg Given 06/25/2022 9:41 PM CDT [...] Recently Administered Medications Times are shown in OBIEE OBIA SOLUTION ARCHITECT. Scheduled Medication Order 06/27/2022 06/28/2022 06/29/2022 aspirin [...] Provider: Mell Wild, RN)[id number] (Given - Provider: Manda Lake, LUAN)[id number] (Given [...] 2 puff, inhalation, Every 6 hours PRN (vp respiratory), wheezing, shortness of breath, Starting on Mon06/05/22 [...] Date First Orde red Date CASE REQUEST FINANCIAL SERVICES CONSULTANT 1 06/10/2022 ADT Patient Update Count Last Ordered Date Firs t Ordered Date PROVIDER TREATMENT TEAM 1 06/04/2022 documented in this encounter Additional Health Concerns Infection Onset Date Last Indicated Resolved Time COVID: Suspected 06/08/2022 06/08/2022 06/08/2022 10:14 PM CDT COVID: Suspected 06/15/2022 06/15/2022 06/15/2022 1:03 PM CDT documented as of this encounter Care Teams Hydroelectric Plant Electrician Relationship Specialty Start Date End Date Aditya Castro MD [address] [facility] [place] [address] PCP - General 10/17/19 documented as of this encounter
--- OUTSIDE RECORDS SUMMARY | 2024-09-07 19:21 | XMS_ITS | Encounter Summary ---
Author Organization [facility] Healthcare Address [address] [place] [address] Care Team Providers Care Design Coordinator Name Role Phone Aditya Castro MD Primary Care Provider [phone] Encounter Details Date Type Department Care Team (Late st Contact Info) Description 06/08/2022 Orders Only [facility] [address] [place] [address] Marcelina Lo, AOC OPERATIONS INTELLIGENCE OFFICER [address] [facility] [phone] [place] [address] Status post insertion of drug [...] on file Legal Sex Male 3:42 AM RESIDENT INTERN Gender Identity Not on file Sexual Orientation Not on file documented as of this encounter Plan of Treatment Not on file documented as of this encounter Procedures Procedure Name Priority Date/Time Associated Diagnosis Comments PREPARE RBC STAT 06/17/2022 10:25 PM CDT documented in this encounter Results * Prepare RBC (06/17/2022 10:25 PM CDT) Product code [id number] [facility] Unit Number [id number] [facility] Product Blood Type APOS [facility] Dispense Status PRESUMED TRANSFUSED [facility] Blood 06/17/2022 10:2 5 PM CDT 06/17/2022 10:25 PM CDT Narrative [facility] - 06/21/2022 12:50 AM CDT Are special requirements needed? (All products are leukoreduced and CMV- safe)- >No Date required:-[id number] LRRBC # of [id number] Reasons:-Hgb <7 g/dL} us Tyra De La Torre MD BLOOD BANK PRODUCT ORDERABLES F inal Result [facility] [place] [address] documented in this encounter Visit Diagnoses Diagnosis Status post insertion of drug eluting coronary artery stent- Primary documented in this encounter Care Teams Design Coordinator Relationship Specialty Start Date End Date Aditya Castro MD [address] [facility] [place] [address] PCP - General 10/17/19 documented as of this encounter
--- OUTSIDE RECORDS SUMMARY | 2024-09-07 19:21 | XMS_ITS | Encounter Summary ---
Author Organization [facility] Address [address] [place] [address] Phone Care Team Providers Care Tower Dragline Operator Name Role Phone Aditya Castro MD Primary Care Provider [phone] Reason for Visit * Reason Onset Date Comments NEW CONSULT 06/23/2022 Encounter Details Date Type Department Care Team (Late st Contact Info) Description 06/23/2022 Telephone [facility] Cardiology [address] [facility] 8th [place] [address] [place] [address] Azra Lo NEW CONSULT Social [...] file Legal 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 HUNG BRITO CALLER'S PAGER: [phone] PATIENT'S NAME: Juvenal Daigle Jr. : 1970 CAMPUS: [facility] PATIENT'S LOCATION: [address] [place] [address] REASON FOR CONSULT: CP & POST CATH ATTENDING PHYSICIAN: DR. BRITO documented in this encounter Plan of Treatment Not on file documented as of this encounter Visit Diagnoses Not on filedocumented in this encounter Care Teams Tower Dragline Operator Relationship Specialty Start Date End Date Aditya Castro MD [address] [facility] [place] [address] PCP - General 10/17/19 documented as of this encounter
--- OUTSIDE RECORDS SUMMARY | 2024-09-07 19:21 | XMS_ITS | Encounter Summary ---
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 The common femoral, femoral, popliteal, posterior tibial, peroneal veins were evaluated for patency, spontaneity and phasicity with Doppler, compression and augmentation maneuvers. Great saphenous vein proximal at the junction was evaluated with compression maneuvers. Indications: Localized edema. Findings: Performing Engineering Assistant: Faye Zheng RVT, RDMS. Bilateral: Venous Doppler [...] performed. Electronically Signed By: Jase Mendez MD [facility] 2022-06-15 12:34:44 CDT CC: CC: Procedure Note Jase Mendez MD - 06/15/2022 [facility] - Department of Vascular Surgery,Vascular Laboratory [address] [place] [address] Lower Extremity Venous Ultrasound Report Patient Name: JUVENAL GARVIN CPatient ID: [id number] : 1970 (51y 9m)Study Date: 06/15/2022 10:29:44 AM Gender: MAccession #: [id number] Tech: CDLocation: [id number] Ref.Provider: Leandro ADAMSality: Adequate Order Provider: Ramez ADAMS #: [id number] Procedures: Vascular Report: Venous Duplex imaging was performed bilaterally in the lower extremities.The common femoral, femoral, popliteal, posterior tibial, peroneal veins wereevaluated for patency, spontaneity and phasicity with Doppler, compression and augmentationmaneuvers. Great saphenous vein proximal at the junction was evaluated with compressionmaneuvers. Indications: Localized edema. Findings: Performing Engineering Assistant: Faye Zheng RVT, RDMS. Bilateral: Venous Doppler [...] performed. Electronically Signed By: Jase Mendez MD [facility] 2022-06-15 12:34:44 CDT CC: CC: us Kimberlee Adams MD IMG US PROCEDURES Final Res ult documented in this encounter Visit Diagnoses Not on filedocumented in this encounter Additional Health Concerns Infection Onset Date Last Indicated Resolved Time COVID: Suspected 06/15/2022 06/15/2022 06/15/2022 1:03 PM CDT documented as of this encounter Care Teams Automatic Typewriter Inspector Relationship Specialty Start Date End Date Aditya Castro MD [address] [facility] [place] [address] PCP - General 10/17/19 documented as of this encounter
--- OUTSIDE RECORDS SUMMARY | 2024-09-07 19:23 | XMS_ITS | Encounter Summary ---
Author Organization [facility] Healthcare Address [address] [place] [address] Care Team Providers Care Quilt Sewer Name Role Phone Aditya Castro MD Primary Care Provider [phone] Encounter Details Date Type Department Care Team (Late st Contact Info) Description 01/21/2021 8:30 AM CDT - 01/21/2021 10:00 AM CDT Surgery [facility] Cardiac Catheterization Lab [address] [place] [address] Hamlet Hubbard Jr., MD [address] [place] [id number] LEFT HEART CATHETERIZATION WITH CORONARY ANGIOGRAPHY AND WITH OR WITHOUT LEFT VENTRICULOGRAM [id number] Surgery Details Date/Time Status Location OR Service Patient Class Case Class Case Type Trauma Case? 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 [phone] Dr. Hubbard documented in this encounter Medications [...] ANGIOGRAPHY AND WITH OR WITHOUT LEFT VENTRICULOGRAM [id number] Source Note - Hamlet Hubbard Jr., MD [...] that you and your doctor have chosen [facility] for your surgery. We hope that the [...] doctor. ?? Use no cologne, make-up, nail bengali, lotions, oils or powders on your skin. [...] - 199 mg/dL [facility] Blood specimen (specimen) 01/21/2021 11:22 AM CDT 01/21/2021 11:22 AM CDT Hamlet Hubbard Jr., MD LAB POCT ORDERABLES - D EVICE Final Result Performing Organization Address [facility] Co de Phone Number ALESSANDRA [address] [address] [place] [place] [address] * (ABNORMAL) POCT glucose (01/21/2021 10:10 AM CDT) Glucose, POC 242(H) 70 - 199 mg/dL [facility] Blood specimen (specimen) 01/21/2021 10:10 AM CDT 01/21/2021 10:10 AM CDT Hamlet Hubbard Jr., MD LAB POCT ORDERABLES - D EVICE Final Result Performing Organization Address [facility] de Phone Number [facility] [address] [address] [place] [address] * LEFT HEART CATHETERIZATION WITH CORONARY ANGIOGRAPHY AND WITH AND WITHOUT LEFT VENTRICULOGRAM (01/21/2021 9:42 AM CDT) Anatomical Region Laterality Modality X-Ray Angiograph y 01/21/2021 Narrative 01/25/2021 10:30 AM CDT Justyle Job ID: [id number] Justyle Document ID: [id number] Dictated date/time: [id number] CATHETERIZATION REPORT PROCEDURE PERFORMED Left heart catheterization [...] placed in the left femoral artery. ??A 5-Citizen Of [place] #4 Kranthi left coronary catheter was advanced to left coronary ostium. ??Left arteriograms performed with normal projections. ??The catheter was removed and replaced with a 5-[place]izen [place] #4 Kranthi right ?? coronary catheter which was advanced to right coronary ostium. ??Right coronary arteriograms were performed in multiple projections. ??This catheter was removed and exchanged for a 5-[place]izen [place] pigtail catheter which was advanced to left [...] very pleasant gentleman. JOB ID/VF JOB ID: ??[id number] Hamlet Hubbard Jr., MD CV CARDIAC CATH PROCEDU RES Final Result * POCT glucose (01/21/2021 7:21 AM CDT) [facility] Signature Glucose, POC 191 70 - 199 mg/dL ALESSANDRA CONDE Blood specimen (specimen) 01/21/2021 7:21 AM CDT 01/21/2021 7:21 AM CDT Hamlet Hubbard Jr., MD LAB POCT ORDERABLES - D EVICE Final Result ALESSANDRA CONDE [address] [address] Department [place] [address] * POCT glucose (01/21/2021 6:59 AM CDT) Glucose, POC 157 70 - 199 mg/dL [facility] Blood specimen (specimen) 01/21/2021 6:59 AM CDT 01/21/2021 6:59 AM CDT us Hamlet Hubbard Jr., MD LAB POCT ORDERABLES - D EVICE Final Result [facility] [address] [facility] Department [place] [address] * (ABNORMAL) Lipid panel (01/21/2021 6:34 AM CDT) Cholesterol 166 30 - 199 mg/dL [facility] Comment: [...] revised on 2018. Non-HDL Cholesterol 133 mg/dL [facility] Comment: Interpretive Data [...] last revised on 2018. Chol/HDL ratio 5 [facility] Blood specimen (specimen) 01/21/2021 6:34 AM CDT 01/21/2021 6:38 AM CDT Hamlet Hubbard Jr., MD LAB BLOOD ORDERABLES Fi nal Result Performing Organization Address City/[facility]/ZIP Co de Phone Number RANDOLPHABRAHAN CONDE [address] [address] [place] [address] * (ABNORMAL) POCT glucose (01/21/2021 6:23 AM CDT) Glucose, POC 66(L) 70 - 199 mg/dL [facility] Blood specimen (specimen) 01/21/2021 6:23 AM CDT 01/21/2021 6:23 AM CDT Hamlet Hubbard Jr., MD LAB POCT ORDERABLES - D EVICE Final Result Performing Organization Address [facility] Co de Phone Number ALESSANDRA CONDE [address] [address] [place] [address] documented in this encounter Visit Diagnoses Diagnosis [...] 01/21/2021 documented in this encounter Care Teams Quilt Sewer Relationship Specialty Start Date End Date Aditya Castro MD [address] [place] [address] PCP - General 10/17/19 documented as of this encounter
--- OUTSIDE RECORDS SUMMARY | 2024-09-07 19:23 | XMS_ITS | Encounter Summary ---
Author Organization [facility] Address [address] [facility] [address] [place] [address] Care Team Providers Care Fitter/Welder Name Role Phone Aditya Castro MD Primary Care Provider Encounter Details Date Type Department Care Team (Late st Contact Info) Description 02/02/2021 Orders Only [facility] Cardiology [address] [facility] [address] [facility] 102 [place] [address] Cyndi Nielson MD [address] [facility] 102 [place] [address] Social History Tobacco Use Types [...] file 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
--- OUTSIDE RECORDS SUMMARY | 2024-09-07 19:23 | XMS_ITS | Encounter Summary ---
Author Organization [facility] Medical Group Address [address] [facility] [address] [place] [address] Care Team Providers Care Collections Attorney Name Role Phone Aditya Castro MD Primary Care Provider [phone] Encounter Details Date Type Department Care Team (Late st Contact Info) Description 02/02/2020 Orders Only [facility] Medical Group Cardiology [address] [facility] [address] [place] [address] Carrington Weeks MD [facility] [place] [id number] Social History Tobacco Use Types Packs/Day Years Used Date Smoking Tobacco: Never Smokeless Tobacco: Former Alcohol Use Standard Drinks/Week Comments No 0 (1 standard drink = 0.6 oz pur e alcohol) Sex and Gender Information Value Date Recorded Sex Assigned at Not on file Legal 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
--- OUTSIDE RECORDS SUMMARY | 2024-09-07 19:23 | XMS_ITS | Encounter Summary ---
Author Organization 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 [phone] Dr. Hubbard documented in this encounter Medications [...] ANGIOGRAPHY AND WITH OR WITHOUT LEFT VENTRICULOGRAM [id number] Source Note - Hamlet Hubbard Jr., MD [...] that you and your doctor have chosen [facility] for your surgery. We hope [...] doctor. ?? Use no cologne, make-up, nail burmese, lotions, oils or powders on your skin. [...] (ABNORMAL) POCT glucose (01/21/2021 11:22 AM CDT) [facility] Signature Glucose, POC 306(H) 70 - 199 mg/dL [facility] Blood specimen (specimen) 01/21/2021 11:22 AM CDT 01/21/2021 11:22 AM CDT us Hamlet Hubbard Jr., MD LAB POCT ORDERABLES - D EVICE Final Result Performing Organization Address [facility] de Phone Number [facility] [address] [address] [place] [address] * (ABNORMAL) POCT glucose (01/21/2021 10:10 AM CDT) Glucose, POC 242(H) 70 - 199 mg/dL [facility] Blood specimen (specimen) 01/21/2021 10:10 AM CDT 01/21/2021 10:10 AM CDT Hamlet Hubbard Jr., MD LAB POCT ORDERABLES - D EVICE Final Result Performing Organization Address [facility] de Phone Number [facility] [address] [place] [address] * LEFT HEART CATHETERIZATION WITH CORONARY ANGIOGRAPHY AND WITH AND WITHOUT LEFT VENTRICULOGRAM (01/21/2021 9:42 AM CDT) Anatomical Region Laterality Modality X-Ray Angiograph y 01/21/2021 Narrative 01/25/2021 10:30 AM CDT Double Fusion Job ID: [id number] Double Fusion Document ID: [id number] Dictated date/time: [id number] CATHETERIZATION REPORT PROCEDURE PERFORMED Left heart catheterization [...] placed in the left femoral artery. ??A 5-Lao #4 Kranthi left coronary catheter was advanced to left coronary ostium. ??Left arteriograms performed with normal projections. ??The catheter was removed and replaced with a 5-Lao #4 Kranthi right ?? coronary catheter which was advanced to right coronary ostium. ??Right coronary arteriograms were performed in multiple projections. ??This catheter was removed and exchanged for a 5-Lao pigtail catheter which was advanced to left [...] very pleasant gentleman. JOB ID/VF JOB ID: ??[id number] Hamlet Hubbard Jr., MD CV CARDIAC CATH PROCEDU RES Final Result * POCT glucose (01/21/2021 7:21 AM CDT) Glucose, POC 191 70 - 199 mg/dL [facility]A CONDE Blood specimen (specimen) 01/21/2021 7:21 AM CDT 01/21/2021 7:21 AM CDT Hamlet Hubbard Jr., MD LAB POCT ORDERABLES - D EVICE Final Result ALESSANDRA [address] [address] [place] [address] * POCT glucose (01/21/2021 6:59 AM CDT) Glucose, POC 157 70 - 199 mg/dL AL[facility]A Blood specimen (specimen) 01/21/2021 6:59 AM CDT 01/21/2021 6:59 AM CDT Hamlet Hubbard Jr., MD LAB POCT ORDERABLES - D EVICE Final Result Performing Organization Address City/State/[facility] Phone Number [facility] [address] [facility] [place] [address] * (ABNORMAL) Lipid panel (01/21/2021 6:34 AM CDT) Cholesterol 166 30 - 199 mg/dL [facility] Comment: Interpretive Data Ages < [...] last revised on 2018. Chol/HDL ratio 5 [facility] Blood specimen (specimen) 01/21/2021 6:34 AM CDT 01/21/2021 6:38 AM CDT Hamlet Hubbard Jr., MD LAB BLOOD ORDERABLES Fi nal Result Performing Organization Address City/[facility] Co de Phone Number ALESSANDRA CONDE [address] [address] [place] [address] * (ABNORMAL) POCT glucose (01/21/2021 6:23 AM CDT) Glucose, POC 66(L) 70 - 199 mg/dL AL[facility]ANDRA Blood specimen (specimen) 01/21/2021 6:23 AM CDT 01/21/2021 6:23 AM CDT Hamlet Hubbard Jr., MD LAB POCT ORDERABLES - D EVICE Final Result Performing Organization Address [facility] Co de Phone Number ALESSANDRA [place]TON [address] [address] [place] [address] documented in this encounter Visit Diagnoses Diagnosis [...] intravenous, Administer over 5 Minutes, Once, On Gergoria 01/21/21 at 0715, For 1 dose, Pre-Op [...] UNABLE to swallow/take PO glucose/juice., Starting on Gregroia 01/21/21 at 1127, After treatment for hypoglycemia, [...] 01/21/2021 documented in this encounter Care Teams Associate Professor Of Biology Relationship Specialty Start Date End Date Aditya Castro MD [address] [facility] [place] [address] PCP - General 10/17/19 documented as of this encounter
--- OUTSIDE RECORDS SUMMARY | 2024-09-07 19:23 | XMS_ITS | Encounter Summary ---
Author Organization [facility] Medical Group Address [address] [facility] [address] [place] [address] Care Team Providers Care Airborne Mission Systems Name Role Phone Aditya Castro MD Primary Care Provider [phone] Encounter Details Date Type Department Care Team (Late st Contact Info) Description 02/01/2020 Orders Only [facility] Medical Group Cardiology [address] [facility] [address] [place] [address] Carrington Weeks MD [facility] [place] [id number] Social History Tobacco Use Types Packs/Day Years Used Date Smoking Tobacco: Never Smokeless Tobacco: Former Alcohol Use Standard Drinks/Week Comments No 0 (1 standard drink = 0.6 oz pur e alcohol) Sex and Gender Information Value Date Recorded Sex Assigned at Not on file 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
--- OUTSIDE RECORDS SUMMARY | 2024-09-07 19:23 | XMS_ITS | Encounter Summary ---
Author Organization [facility] Medical Group Address [address] [facility] [address] [place] [address] Care Team Providers Care Clinical Appeals Reviewer Name Role Phone Aditya Castro MD Primary Care Provider [phone] Encounter Details Date Type Department Care Team (Late st Contact Info) Description 01/11/2021 Orders Only [facility] Medical Group Cardiology [address] [facility] 162 [facility] 102 [place] [address] Abelardo Petit MD [address] [facility] 102 [place] [address] Social History Tobacco Use Types [...] on file 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
--- OUTSIDE RECORDS SUMMARY | 2024-09-07 19:23 | XMS_ITS | Encounter Summary ---
Author Organization [facility] Medical Group Address [address] [address] Care Team Providers Care Pharmacovigilance Specialist Name Role Phone Aditya Castro MD Primary Care Provider [phone] Encounter Details Date Type Department Care Team (Late st Contact Info) Description 06/03/[address] 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
--- OUTSIDE RECORDS SUMMARY | 2024-09-07 19:23 | XMS_ITS | Encounter Summary ---
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
--- OUTSIDE RECORDS SUMMARY | 2024-09-07 19:23 | XMS_ITS | Encounter Summary ---
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 - 06/06/2022 12:29 PM CDT ELMA & * Telephone Encounter - Kalyn Saba - 06/06/2022 12:22 PM CDT CARDIOLOGY CONSULT 06/06/2022 RECEIVED BY: Kalyn Saba TYPE OF CONSULT: general CALLER'S NAME:[facility] CALLER'S PAGER:[phone] PATIENT'S NAME: Juvenal Daigle Jr. : 1970 CAMPUS: [facility] PATIENT'S LOCATION:[facility] REASON FOR CONSULT: N-STEMI ATTENDING PHYSICIAN: Vincenzo Akers Note: Interventional cardiology is aware of patient documented in this encounter Plan of Treatment Not on file documented as of this encounter Visit Diagnoses Not on filedocumented in this encounter Care Teams Wastewater Analyst Relationship Specialty Start Date End Date Aditya Castro MD [address] [facility] DEPT [place] [address] PCP - General 10/17/19 documented as of this encounter
--- OUTSIDE RECORDS SUMMARY | 2024-09-07 19:23 | XMS_ITS | Encounter Summary ---
Author Organization [facility] Medical Group Address [address] [facility] [address] [place] [address] Care Team Providers Care Asphalt Paving Machine Operator Name Role Phone Aditya Castro MD Primary Care Provider [phone] Encounter Details Date Type Department Care Team (Late st Contact Info) Description 02/03/2020 Orders Only [facility] Medical Group Cardiology [address] [facility] 162 [facility] 102 [place] [address] Licha Hay, ROBERTO [address] [facility] 102 [place] [address] Social History Tobacco Use Types Packs/Day Years Used Date Smoking Tobacco: Never Smokeless Tobacco: Former Alcohol Use Standard Drinks/Week Comments No 0 (1 standard drink = 0.6 oz pur e alcohol) Sex and Gender Information Value Date Recorded Sex Assigned at Not on file 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
--- OUTSIDE RECORDS SUMMARY | 2024-09-07 19:23 | XMS_ITS | Encounter Summary ---
Author Organization [facility] Address [address] [address] Care Team Providers Care Software Product Specialist Name Role Phone Aditya Castro MD Primary Care Provider [phone] Encounter Details Date Type Department Care Team (Late st Contact Info) Description 06/03/2022 Orders Only [facility] Medical Group Cardiology [address] [facility] 162 [facility] 102 [place] [address] Abelardo Petit MD [address] [facility] [address] [facility] 102 [place] [address] Social History Tobacco Use Types [...] file Legal 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
--- OUTSIDE RECORDS SUMMARY | 2024-09-07 19:23 | XMS_ITS | Encounter Summary ---
Author Organization [facility] Healthcare Address [address] [facility] [address] [place] [address] Care Team Providers Care Order Analyst Name Role Phone Aditya Castro MD Primary Care Provider [phone] Reason for Visit * Auth/Cert Specialty Diagnoses / Procedures Referred By Contac t Referred To Contact Diagnoses Angina pectoris (HCC) NON STEMI CARDS FIRM, PD, covid neg Procedures N/A Referral ID Status Reason Start Date Expiration Date Visits Re quested Visits Authorized [id number] 1 1 Encounter Details Date Type Department Care Team (Late st Contact Info) Description 06/07/2022 12:00 PM CDT - 06/07/2022 2:30 PM CDT Surgery [facility] [address] [place] [address] Champ Osborne MD PhD [address] [place] [address] PCI MARIELLA MAJOR CORONARY [id number] - [id number] Surgery Details Date/Time Status Location OR Service Patient Class Case Class Case Type Trauma Case? 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 At the OSH he presented with 3d generalized weakness, chills, ROONEY, n/v, chest pain relieved by sublingual ntg. His labs were notable for trop 1.0-->1.09-->0.729, BNP 59714. He had a CT CAP showing cholelithiasis [...] circumflex as optimal treatment, prompting transfer to [place]. He arrived at [place] 06/05. EKG showed sinus bradycardia, 1st deg [...] * NSTEMI (non-ST elevated myocardial infarction) (CMS/HCC) ([facility]) With interventions described above. Post-transfer [...] HFrEF (heart failure with reduced ejection fraction) ([facility]) He developed cardiogenic shock requiring [...] to metoprolol. ESRD (end stage renal disease) ([facility]) ([facility]) Renal consulted on admission with history of ESRD on PD. While in ICU, temporary dialysis catheter was placed to facilitate CRRT for volume removal. Upon transfer to the floor, PD was continued and tolerated well. He was continued on his home vitamins for renal bone mineral disease and phoslo. Trialysis removed 06/25. Type 1 diabetes mellitus ([facility]) Prior to admission, his A1c [...] REMOVE PERC ARTERIAL VAD (IMPELLA), DIFFERENT SESSION [id number] Other Procedures: Pertinent Test Results: See hospital [...] one tablet three times daily Outpatient Follow-Up: [facility] documented in this encounter Discharge Instructions * Discharge Instructions* Frank Bowers MD - 06/29/2022 9:19 AM CHEMIST ORGANIC Mr. Adelia Garvin, You were admitted to the hospital for chest pain, and you were seen by our cardiology specialists where you received a new stent placed. As you have improved and are tolerating your insulin pump wellas well as your dialysis, you are stable to be discharged to the rehab facility. Continue Omnipod 5 insulin pump with [employer] G6 CGM at home settings: TIME BASAL [...] yearly or sooner as indicated by your non destructive evaluation specialist Pending results for primary service or primary care physician to follow up on: None at time of discharge Follow Up Plan: Follow up with endocrinology near his home 1-2 weeks after discharge to reassess glycemic management and adjust insulin pump settings as needed. [facility] documented in this encounter Medications at Time [...] Means Destination Discharge to an Rehab facility [facility] documented in this encounter Progress Notes * Elsie Gonzalez RN - 06/29/2022 11:30 AM CST 06/06/22 1203 Discharge Summary Chart reviewed For Medical Necessity Does patient have a planned readmission to hospital planned? No Discharge Disposition Home;Inpatient (Acute) Rehab Hospital Specify Facility [facility] Facility Contact Number Contact- Minerva Hurt- [phone] for report- [phone] fax [phone] Equipment/Provider Needs No Home Needs Identified Discharge Additional Assistance Does the patient need discharge transport arranged? No (family to transport to [facility]) Post Discharge Care Provider Post Discharge Care Plan DC Summary and post acute care report has been faxed to next level of careprovider (see Follow Up Providers) Patient is medically stable to discharge home today. Patient will have transportation provided by the patient's brother. Patient instructed to f/u with PCP after release from [facility]. No additional needs noted at this time. [facility] I[facility] * Frank Bowers MD - 06/29/2022 10:12 AM CST Daily Progress Note Division of Hospital Medicine Name: Adelia Garvin Jr. Today: June 29, 2022 : 1970 Age: 51 y.o. male Admit: 06/04/2022 Bed: [id number] Subjective Chief complaint: NSTEMI Interval History: Pt [...] 06/29/2022 0815 Gross per 24 hour Intake 11299 ml Output 18581 ml Net -664 ml Physical Exam Constitutional: [...] * NSTEMI (non-ST elevated myocardial infarction) (CMS/HCC) ([facility]) Assessment & Plan With recurrent [...] rehab today ESRD (end stage renal disease) ([facility]) ([facility]) Assessment & Plan - Renal consulted, s/p CRRT in the ICU now back on PD. Tolerated well and nephrology following - Trialysis catheter removed - Continue vitamins for renal bone mineral disease. Type 1 diabetes mellitus ([facility]) Assessment & Plan A1c well [...] start of peritoneal dialysis session Atrial fibrillation ([facility]) ([facility]) Assessment & Plan Converted to [...] including recommendations regarding insulin pump at discharge [facility] IST ORGANIC * Janelle Romero, OT - 06/29/2022 9:30 [...] not assigned to this patient, please call [phone]. 06/29/22 0930 General Session Type Treatment OT [...] demonstrate modified independence/independence with ADL task completion. [facility] * Kip Julian PT - 06/29/2022 8:53 AM CST Physical Therapy 06/29/22 0853 General PT Missed Visit Reason Patient declined [facility] * Frank Bowers MD - 06/28/2022 3:30 PM CST Daily Progress Note Division of Hospital Medicine Name: Adelia Garvin Jr. Today: June 28, 2022 : 1970 Age: 51 y.o. male Admit: 06/04/2022 Bed: [id number] Subjective Chief complaint: NSTEMI Interval History: Pt [...] 06/28/2022 1300 Gross per 24 hour Intake 29525 ml Output 04321 ml Net -851 ml Physical Exam Constitutional: [...] Resolved. * NSTEMI (non-ST elevated myocardial infarction) (CMS/[facility]) ([facility]) Assessment & Plan With recurrent [...] been accepted ESRD (end stage renal disease) ([facility]) ([facility]) Assessment & Plan - Renal consulted, s/p CRRT in the ICU now back on PD. Tolerated well and nephrology following - Trialysis catheter removed - Continue vitamins for renal bone mineral disease. Type 1 diabetes mellitus ([facility]) Assessment & Plan A1c well [...] increase NPH 45u before PD Atrial fibrillation ([facility]) ([facility]) Assessment & Plan Converted to [...] HFrEF (heart failure with reduced ejection fraction) ([facility]) Assessment & Plan C/b cardiogenic [...] and trend Hb. Acute hypoxemic respiratory failure ([facility]) Assessment & Plan Secondary to ACS and flash pulmonary edema, since resolved and extubated on 06/19. Patient passed barium swallow on 06/21. [facility] * Shelbie Garcia, RD - 06/28/2022 2:38 [...] type I (HCC) Dialysis patient ([facility]) (HCC) ESRD on dialysis ([facility]) ([facility]) GERD (gastroesophageal reflux disease) Hyperlipidemia [...] of Weight Used for Estimated Protein : [place] Protein Needs Based on g/k.5 Total Protein [...] 06/28/2022 1300 Gross per 24 hour Intake 30943 ml Output 38849 ml Net -851 ml Gastrointestinal Gastrointestinal (WDL): [...] Comments: Heart Healthy Diet Question Answer Comment ([facility]) Diet type Restricted Fat / Sodium Restriction: [...] of his insulin pump. Pt seen by HEAD TRANSFER CLERK today. Can continue on regular textured foods [...] Stool patterns, Weight changes Shelbie Garcia RD [phone] [facility] * Carey East MD - 06/27/2022 4:57 PM CST Daily Progress Note Division of Hospital Medicine Name: Adelia Garvin Jr. Today: June 27, 2022 : 1970 Age: 51 y.o. male Admit: 06/04/2022 Bed: [id number] Subjective Chief complaint: CAD s/p PCI, T1DM, [...] 06/27/2022 0745 Gross per 24 hour Intake 31569 ml Output 13323 ml Net -1949 ml Physical Exam Constitutional: [...] transferred to the floor, improving. Atrial fibrillation ([facility]) ([facility]) Assessment & Plan Converted to [...] HFrEF (heart failure with reduced ejection fraction) ([facility]) Assessment & Plan C/b cardiogenic shock requiring impella in the setting of cath and AHRF 2/2 pulmonary edema, now resolved. TTE demonstrating recovered EF 65% with grade I diastolic dysfunction. - metop as above - continue low dose losartan 12.5mg daily, ok per nephro - volume management per PD ESRD (end stage renal disease) ([facility]) ([facility]) Assessment & Plan - Renal consulted, s/p CRRT in the ICU now back on PD. - Continue vitamins for renal bone mineral disease - continue phoslo Type 1 diabetes mellitus ([facility]) Assessment & Plan A1c well [...] PD * NSTEMI (non-ST elevated myocardial infarction) ([facility]) ([facility]) Assessment & Plan With recurrent [...] recs, CM aware and searching for facilities [facility] * Arleen Andre MD - 06/27/2022 3:50 PM CST ASSESSMENT AND RECOMMENDATIONS ESRD: He is doing well on the current PD regimen. Ultrafilters approximately 6977-3365 ml/day. Continue current regimen Hypokalemia: Start Kcl [...] (mL): 785 mL Fill Volume In (mL): 58812 mL Effluent Volume Out (mL): 59528 ml Balance This Exchange (mL): 1944 mL [...] edema I/O last 2 completed shifts: In: 38744 [P.O.:440; Other:55058] Out: 05014 [Urine:300; Other:84818] I have reviewed current medications and the [...] FERRITIN 2,062 (H) 06/07/2022 Arleen Andre MD hot press operator Division of Nephrology [facility] * So Lawrence, OT - 06/27/2022 9:37 [...] not assigned to this patient, please call [phone]. 06/27/22 0937 General Session Type Treatment OT [...] demonstrate modified independence/independence with ADL task completion. [facility] * Carlos Dupree MD - 06/26/2022 4:13 PM CST Endocrinology & Diabetes Progress Note Patient: Adelia Garvin Jr., 51 y.o. male (: 1970) Room: [place] [address]/[id number] ( ) LOS: 22 Adelia Garvin Jr. [...] agitation. 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, with assistant terminal manager use of insulin, complicated by ESRD on PD, CAD s/p PCI, CHF - HbA1c 7.4% - Uses Omnipod and Dexcom G6 at home, not currently on this- doesn't have the supplies -On significantly higher basal rates on pump at night due to peritoneal dialysis -home settings: Basal rate 0330 >>1.7 0800 >> 0.8 2000 >> 5.8 ICR1:6.5 ISF1:25 [id number] TIA 4 Inpatient glycemic management complicated by [...] ## Discharge Planning - Follow-up with home mechanical facilities technician -- Carlos Dupree MD Endocrinology, Metabolism, & Lipid Research Contact Info: New Consults: [phone]) General Endocrine (Non-Diabetes): [phone] (Check 'Treatment Team' assignment for Diabetes 1 vs 2 vs 3) Diabetes 1: Diabetes Fellow: [phone] Diabetes 2: Dora Delarosa, SUCTION ROLLER: [phone] Diabetes 3: See Treatment Team Provider (or call Dora Delarosa, above) Diabetes After-Hours & Weekends: Diabetes Fellow [facility] * Carey East MD - 06/26/2022 12:39 PM CST Daily Progress Note Division of Hospital Medicine Name: Adelia Garvin Jr. Today: June 26, 2022 : 1970 Age: 51 y.o. male Admit: 06/04/2022 Bed: [id number] Subjective Chief complaint: CAD s/p PCI, T1DM, [...] 06/26/2022 1110 Gross per 24 hour Intake 42050 ml Output 40545 ml Net -1847 ml Physical Exam Constitutional: [...] transferred to the floor, improving. Atrial fibrillation ([facility]) ([facility]) Assessment & Plan Converted to [...] HFrEF (heart failure with reduced ejection fraction) ([facility]) Assessment & Plan C/b cardiogenic shock requiring impella in the setting of cath and AHRF 2/2 pulmonary edema, now resolved. TTE demonstrating recovered EF 65% with grade I diastolic dysfunction. - metop as above - continue low dose losartan 12.5mg daily, ok per nephro - volume management per PD ESRD (end stage renal disease) ([facility]) ([facility]) Assessment & Plan - Renal [...] PD * NSTEMI (non-ST elevated myocardial infarction) ([facility]) ([facility]) Assessment & Plan With recurrent [...] acute rehab per PT recs, CM aware [facility] * Carey East MD - 06/25/2022 11:51 AM CDT Daily Progress Note Division of Hospital Medicine Name: Adelia Garvin Jr. Today: June 25, 2022 : 1970 Age: 51 y.o. male Admit: 06/04/2022 Bed: [id number] Subjective Chief complaint: CAD s/p PCI, T1DM, [...] 06/25/2022 0600 Gross per 24 hour Intake 79070 ml Output 09864 ml Net -2404 ml Physical Exam Constitutional: [...] HFrEF (heart failure with reduced ejection fraction) ([facility]) Assessment & Plan C/b cardiogenic shock requiring impella in the setting of cath and AHRF 2/2 pulmonary edema, now resolved. TTE demonstrating recovered EF 65% with grade I diastolic dysfunction. - metop as above - start low dose losartan 12.5mg daily today, ok per nephro - volume management per PD ESRD (end stage renal disease) ([facility]) ([facility]) Assessment & Plan - Renal consulted, s/p CRRT in the ICU now back on PD. - Trialysis catheter still in place --> removed today - Continue vitamins for renal bone mineral disease. Type 1 diabetes mellitus ([facility]) Assessment & Plan A1c well [...] today * NSTEMI (non-ST elevated myocardial infarction) ([facility]) ([facility]) Assessment & Plan With recurrent [...] decrease to daily Acute hypoxemic respiratory failure ([facility]) Assessment & Plan Secondary to ACS and flash pulmonary edema, since resolved and extubated on 06/19. Patient passed barium swallow on 06/21. Cardiogenic shock ([facility]) Assessment & Plan Secondary to [...] mobility Prior Function Prior Function Level of Ivins: Independent with ADLs, Independent functional transfers, Independent [...] (increased time required) Compliance/Behavior: Easy to engage [place] Cognitive Assessment (MOCA) MOCA Version: Version 3 [...] not assigned to this patient, please call [phone]. * Carey East MD - 06/24/2022 4:30 PM CDT Daily Progress Note Division of Hospital Medicine Name: Adelia Garvin Jr. Today: June 24, 2022 : 1970 Age: 51 y.o. male Admit: 06/04/2022 Bed: [id number] Subjective Chief complaint: CAD s/p PCI, T1DM, [...] 06/24/2022 0536 Gross per 24 hour Intake 48655 ml Output 68806 ml Net -347 ml Physical Exam Constitutional: [...] with new chest pressure today. Atrial fibrillation ([facility]) ([facility]) Assessment & Plan Currently rated [...] HFrEF (heart failure with reduced ejection fraction) ([facility]) Assessment & Plan C/b cardiogenic shock requiring impella in the setting of cath and AHRF 2/2 pulmonary edema, now resolved. TTE demonstrating recovered EF 65% with grade I diastolic dysfunction. - metop as above - not on NICOLÁS/ARB due to ESRD, d/w nephro - volume management per PD ESRD (end stage renal disease) (CMS/HCC) ([facility]) Assessment & Plan - Renal [...] Weakness, N/V, diarrhea, chest pain. Resp failure, VURTTH03/18: S/p complex PCI and Impella placement for [...] No Prior Function Prior Function Level of Ivins: Independent functional transfers, Independent with ambulation Lives [...] treatment team and contact the PT or HELPDESK ANALYST currently assigned to this patient. If a physical therapy clinician is not assigned to this patient, please call [phone]. * Carey East MD - 06/23/2022 4:37 PM CDT Daily Progress Note Division of Hospital Medicine Name: Adelia Garvin Jr. Today: June 23, 2022 : 1970 Age: 51 y.o. male Admit: 06/04/2022 Bed: [id number] Subjective Chief complaint: CAD s/p PCI, T1DM, [...] 06/23/2022 0625 Gross per 24 hour Intake 36152 ml Output 85472 ml Net -2575 ml Physical Exam Constitutional: [...] (MSEC) 380 ms QTc 490 ms R [place] -47 degrees T [place] 105 degrees Diagnosis Sinus rhythm with Premature [...] since removed on 06/10. Resolved. Atrial fibrillation ([facility]) ([facility]) Assessment & Plan Currently rated controlled with metoprolol, CHADsVASc of 4 not on anticoagulation prior to admission. - cardiology consulted - metop as elsewhere Acute on chronic HFrEF (heart failure with reduced ejection fraction) ([facility]) Assessment & Plan C/b cardiogenic shock requiring impella in the setting of cath and AHRF 2/2 pulmonary edema, now resolved. TTE demonstrating recovered EF 65% with grade I diastolic dysfunction. - consolidate metoprolol today: 25 q6h --> 50mg BID - not on NICOLÁS/ARB due to ESRD, will d/w nephro - volume management per PD ESRD (end stage renal disease) ([facility]) ([facility]) Assessment & Plan - Renal [...] and trend Hb. Acute hypoxemic respiratory failure ([facility]) Assessment & Plan Secondary to ACS and flash pulmonary edema, since resolved and extubated on 06/19. Patient passed barium swallow on 06/21. Type 1 diabetes mellitus ([facility]) Assessment & Plan A1c well [...] use * NSTEMI (non-ST elevated myocardial infarction) ([facility]) ([facility]) Assessment & Plan With recurrent [...] gout, BEN on CPAP initially presented to [facility] for generalized weakness, n/v, diarrhea, and chest pain now being transferred for LHC/PCI 06/06. Objective Past Medical History: Diagnosis Date CAD (coronary artery disease) Chest pain Diabetes mellitus (HCC) Diabetes mellitus type I (HCC) Dialysis patient ([facility]) (HCC) ESRD on dialysis ([facility]) (HCC) GERD (gastroesophageal reflux disease) [...] of Weight Used for Estimated Protein : [place] Protein Needs Based on g/k.5 Total Protein [...] 06/23/2022 0625 Gross per 24 hour Intake 44161 ml Output 12258 ml Net -2575 ml Gastrointestinal Gastrointestinal (WDL): [...] Comments: Heart Healthy Diet Question Answer Comment ([facility]) Diet type Restricted Fat / Sodium Restriction: [...] Supplement tolerance Ronny Vasquez MS RDN LD Com Writer RD number [phone] * Luiz Lewis DO - 06/22/2022 8:22 [...] at 06/22/20221944 Gross per 24 hour Intake 32378 ml Output 28836 ml Net -2209 ml Constitutional - chronically [...] Impella since removed on 06/10. Atrial fibrillation ([facility]) ([facility]) Assessment & Plan -Currently rated controlled with metoprolol, CHADsVASc of 4 not on anticoagulation prior to admission. -Follow cardiology for initiation of AC. Acute on chronic HFrEF (heart failure with reduced ejection fraction) ([facility]) Assessment & Plan -With acute exacerbation complicated by pulmonary edema since resolved. -Repeat TTE following Impella removal showed recovered EF of 65% with grade I diastolic dysfunction. -Continue metoprolol tartrate, start GDMT per cardiology. ESRD (end stage renal disease) (CMS/HCC) ([facility]) Assessment & Plan -Renal consulted, [...] aspirin, Plavix and atorvastatin. Luiz Lewis DO [facility] Medicine * Tyra De La Torre MD - 06/22/2022 4:17 PM CDT CCU DAILY PROGRESS Patient: Adelia Garvin Jr. Room: [place] [address] [address] Date: 06/22/2022 Summary Statement: Adelia Garvin Jr. is a 51 y.o. male with a history of CHF (EF 50% 2016), Afib (not on AC), HTN, CAD s/p stent 04/06 and 3 stent 12/07, T1DM (insulin pump at home), ESRD on PD, HLD, GERD, hyperparathyroidism, DDD, OA, gout, BEN on CPAP initially presented to OSH for n/v and chest pain, transferred to [facility] for LHC/PCI, who presented to CCU s/p [...] 06/22/2022 0500 Gross per 24 hour Intake 78052 ml Output 16424 ml Net -1759 ml Ventilator Settings: N/a [...] in anterior wall and anterior septem sugegsting CAD/CO in the LAD territory. 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 #Nutrition - continue tube feeds - HEAD TRANSFER CLERK eval - remove NGT and restart diet [...] HEME/ONC #Anemia Hgb 9.5 on admission to [facility] and 7.8 on arrival to CCU. Hgb [...] plan with the ICU team and other medical/nursing consultant staff. * Tyra De La Torre MD - 06/21/2022 9:15 AM CDT CCU DAILY PROGRESS Patient: Adelia Garvin Jr. Room: [id number] Date: 06/21/2022 Summary Statement: Adelia Garvin Jr. is a 51 y.o. male with a history of CHF (EF 50% 2016), Afib (not on AC), HTN, CAD s/p stent 04/06 and 3 stent 12/07, T1DM (insulin pump at home), ESRD on PD, HLD, GERD, hyperparathyroidism, DDD, OA, gout, BEN on CPAP initially presented to OSH for n/v and chest pain, transferred to [facility] for LHC/PCI, who presented to CCU s/p [...] in anterior wall and anterior septem sugegsting CAD/CO in the LAD territory. 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 #Nutrition - continue tube feeds - HEAD TRANSFER CLERK eval - remove NGT and restart diet [...] held iso diarrhea; transition to PO pending [facility] [place] - glargine 33U, humalog 6U q4h + SSI - if TF: humalog to 8u q4h - if PO: transition short-acting to humalog 4u post-meal - continue to adjust regimen as patient transitions from TF to oral intake HEME/ONC #Anemia Hgb 9.5 on admission to [facility] and 7.8 on arrival to CCU. Hgb [...] plan with the ICU team and other medical/nursing consultant staff. * Jess Redmond, PT - 06/21/2022 7:55 AM CDT Physical Therapy 06/21/22 4538 General PT Missed Visit Reason Bedrest Recommendation/Plan [...] DAILY PROGRESS Patient: Adelia Garvin Jr. Room: [place] [address] [address] Date: 06/20/2022 Summary Statement: Adelia Garvin Jr. is a 51 y.o. male with a history of CHF (EF 50% 2016), Afib (not on AC), HTN, CAD s/p stent 04/06 and 3 stent 12/07, T1DM (insulin pump at home), ESRD on PD, HLD, GERD, hyperparathyroidism, DDD, OA, gout, BEN on CPAP initially presented to OSH for n/v and chest pain, transferred to [facility] for LHC/PCI, who presented to CCU s/p [...] gtt - continue amio gtt 0.5 - HEAD TRANSFER CLERK eval for possible removal of NGT - [...] in anterior wall and anterior septem sugegsting CAD/CO in the LAD territory. 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 Hgb [...] A/C was because he started plavix and lead trainer decided to stop Eliquis. DIAGNOSTIC REVIEW Blood [...] plan with the ICU team and other medical/nursing consultant staff. * Bobby Mary MD - [...] 93% I/O last 2 completed shifts: In: 31023.4 [I.V.:1014.4; Other:43822; NG/GT:190; IV Piggyback:420] Out: 76696 [Other:69971] I/O this shift: In: 480.2 [I.V.:480.2] Out: [...] DAILY PROGRESS Patient: Adelia Garvin Jr. Room: [id number] Date: 06/19/2022 Summary Statement: Adelia Garvin Jr. is a 51 y.o. male with a history of CHF (EF 50% 2016), Afib (not on AC), HTN, CAD s/p stent 04/06 and 3 stent 12/07, T1DM (insulin pump at home), ESRD on PD, HLD, GERD, hyperparathyroidism, DDD, OA, gout, BEN on CPAP initially presented to OSH for n/v and chest pain, transferred to [facility] for LHC/PCI, who presented to CCU s/p [...] 06/19/2022 0500 Gross per 24 hour Intake 48758.7 ml Output 63111 ml Net -2782.3 ml Ventilator Settings: 20/500/80/12 [...] in anterior wall and anterior septem sugegsting CAD/CO in the LAD territory. LVEF is in [...] gout, BEN on CPAP initially presented to [facility] for n/v and chest pain, transferred to [facility] for LHC/PCI, who presented to the CCU [...] Pt became acutely hypoxic while in the biology laboratory assistant, required intubation; CXR prior to cath showed [...] HEME/ONC #Anemia Hgb 9.5 on admission to [facility] and 7.8 on arrival to CCU. Hgb [...] plan with the ICU team and other medical/nursing consultant staff. * Jeffrey Green MD - 06/18/2022 6:17 AM CDT CCU DAILY PROGRESS Patient: Adelia Garvin Jr. Room: [id number] Date: 06/18/2022 Summary Statement: Adelia Garvin Jr. is a 51 y.o. male with a history of CHF (EF 50% 2017), Afib (not on AC), HTN, CAD s/p stent 04/06 and 3 stent 12/07, T1DM (insulin pump at home), ESRD on PD, HLD, GERD, hyperparathyroidism, DDD, OA, gout, BEN on CPAP initially presented to OSH for n/v and chest pain, transferred to [facility] for LHC/PCI, who presented to CCU s/p [...] 06/18/2022 0500 Gross per 24 hour Intake 99050.41 ml Output 44984 ml Net 897.41 ml Ventilator Settings: 20/500/80/12 [...] in anterior wall and anterior septem sugegsting CAD/CO in the LAD territory. LVEF is in [...] gout, BEN on CPAP initially presented to [facility] for n/v and chest pain, transferred to [facility] for LHC/PCI, who presented to the CCU [...] Pt became acutely hypoxic while in the biology laboratory assistant, required intubation; CXR prior to cath showed [...] HEME/ONC #Anemia Hgb 9.5 on admission to [facility] and 7.8 on arrival to CCU. Hgb [...] plan with the ICU team and other medical/nursing consultant staff. * Jeffrey Green MD - 06/17/2022 6:39 AM CDT CCU DAILY PROGRESS Patient: Adelia Garvin Jr. Room: [id number] Date: 06/17/2022 Summary Statement: Adelia Garvin Jr. is a 51 y.o. male with a history of CHF (EF 50% 2016), Afib (not on AC), HTN, CAD s/p stent 04/06 and 3 stent 12/07, T1DM (insulin pump at home), ESRD on PD, HLD, GERD, hyperparathyroidism, DDD, OA, gout, BEN on CPAP initially presented to OSH for n/v and chest pain, transferred to [facility] for LHC/PCI, who presented to CCU s/p [...] 0-400 mcg/hr, Last Rate: 200 mcg/hr (06/16/22 5865) heparin, 0-33 Units/kg/hr, Last Rate: 10.5 Units/kg/hr [...] in anterior wall and anterior septem sugegsting CAD/CO in the LAD territory. LVEF is in [...] gout, BEN on CPAP initially presented to [facility] for n/v and chest pain, transferred to [facility] for LHC/PCI, who presented to the CCU [...] Pt became acutely hypoxic while in the biology laboratory assistant, required intubation; CXR prior to cath showed [...] HEME/ONC #Anemia Hgb 9.5 on admission to [facility] and 7.8 on arrival to CCU. Hgb [...] plan with the ICU team and other medical/nursing consultant staff. * Tyra De La Torre MD - 06/16/2022 5:49 AM CDT CCU DAILY PROGRESS Patient: Adelia Garvin Jr. Room: [place] [id number]/[place] [id number] Date: 06/16/2022 Summary Statement: Adelia Garvin Jr. is a 51 y.o. male with a history of CHF (EF 50% 2016), Afib (not on AC), HTN, CAD s/p stent 04/06 and 3 stent 12/07, T1DM (insulin pump at home), ESRD on PD, HLD, GERD, hyperparathyroidism, DDD, OA, gout, BEN on CPAP initially presented to OSH for n/v and chest pain, transferred to [facility] for LHC/PCI, who presented to CCU s/p [...] angle isexcluded. No pneumothorax. Dictated by: Jersey oMrales MD The radiology attending physician has personally [...] in anterior wall and anterior septem sugegsting CAD/CO in the LAD territory. LVEF is in [...] gout, BEN on CPAP initially presented to [facility] for n/v and chest pain, transferred to [facility] for LHC/PCI, who presented to the CCU [...] Pt became acutely hypoxic while in the biology laboratory assistant, required intubation; CXR prior to cath showed [...] HEME/ONC #Anemia Hgb 9.5 on admission to [facility] and 7.8 on arrival to CCU. Hgb [...] plan with the ICU team and other medical/nursing consultant staff. * Zoila Sainz - 06/15/2022 4:15 PM CDT 06/15/22 1614 PT Last Visit PT Missed Visit Reason Sedated (pt intubated/sedated) Recommendation/Plan PT Frequency Monitor status PT - Next Appointment 06/17/22 Cosigned by Faby Poole PT at 06/15/2022 4:45 PM CDT * Tyra De La Torre MD - 06/15/2022 5:23 AM CDT CCU DAILY PROGRESS Patient: Adelia Garvin Jr. Room: [id number] Date: 06/15/2022 Summary Statement: dAelia Garvin Jr. is a 51 y.o. male with a history of CHF (EF 50% 2017), Afib (not on AC), HTN, CAD s/p stent 04/06 and 3 stent 12/07, T1DM (insulin pump at home), ESRD on PD, HLD, GERD, hyperparathyroidism, DDD, OA, gout, BEN on CPAP initially presented to OSH for n/v and chest pain, transferred to [facility] for LHC/PCI, who presented to CCU s/p [...] in anterior wall and anterior septem sugegsting CAD/CO in the LAD territory. LVEF is in [...] gout, BEN on CPAP initially presented to [facility] for n/v and chest pain, transferred to [facility] for LHC/PCI, who presented to the CCU [...] Pt became acutely hypoxic while in the biology laboratory assistant, required intubation; CXR prior to cath showed [...] HEME/ONC #Anemia Hgb 9.5 on admission to [facility] and 7.8 on arrival to CCU. Hgb [...] plan with the ICU team and other medical/nursing consultant staff. * Lavern Morrison MD - 06/14/2022 4:39 PM CDT CCU DAILY PROGRESS Patient: Adelia Garvin Jr. Room: [id number] Date: 06/14/2022 Summary Statement: Adelia Garvin Jr. is a 51 y.o. male with a history of CHF (EF 50% 2016), Afib (not on AC), HTN, CAD s/p stent 04/06 and 3 stent 12/07, T1DM (insulin pump at home), ESRD on PD, HLD, GERD, hyperparathyroidism, DDD, OA, gout, BEN on CPAP initially presented to OSH for n/v and chest pain, transferred to [facility] for LHC/PCI, who presented to CCU s/p [...] in anterior wall and anterior septem sugegsting CAD/CO in the LAD territory. LVEF is in [...] gout, BEN on CPAP initially presented to [facility] for n/v and chest pain, transferred to [facility] for LHC/PCI, who presented to the CCU [...] Pt became acutely hypoxic while in the biology laboratory assistant, required intubation; CXR prior to cath showed [...] HEME/ONC #Anemia Hgb 9.5 on admission to [facility] and 7.8 on arrival to CCU. Hgb [...] plan with the ICU team and other medical/nursing consultant staff. * Payam Johnson, POKER MANAGER - 06/14/2022 11:56 AM CDT 06/14/22 1135 [...] DAILY PROGRESS Patient: Adelia Garvin Jr. Room: [id number] Date: 06/13/2022 Summary Statement: Adelia Garvin Jr. is a 51 y.o. male with a history of CHF (EF 50% 2016), Afib (not on AC), HTN, CAD s/p stent 04/06 and 3 stent 12/07, T1DM (insulin pump at home), ESRD on PD, HLD, GERD, hyperparathyroidism, DDD, OA, gout, BEN on CPAP initially presented to OSH for n/v and chest pain, transferred to [facility] for LHC/PCI, who presented to CCU s/p [...] in anterior wall and anterior septem sugegsting CAD/CO in the LAD territory. LVEF is in [...] gout, BEN on CPAP initially presented to [facility] for n/v and chest pain, transferred to [facility] for LHC/PCI, who presented to the CCU [...] Pt became acutely hypoxic while in the biology laboratory assistant, required intubation; CXR prior to cath showed [...] HEME/ONC #Anemia Hgb 9.5 on admission to [facility] and 7.8 on arrival to CCU. Hgb [...] plan with the ICU team and other medical/nursing consultant staff. * Olga Bernstein, PT - 06/13/2022 9:14 AM CDT Physical Therapy 06/13/22 0913 General PT Missed Visit Reason Bedrest;Sedated (impella, CVVHD) Recommendation/Plan PT Frequency Monitor status PT - Next Appointment 06/15/22 * Jeffrey Green MD - 06/12/2022 4:58 AM CDT CCU DAILY PROGRESS Patient: Adelia Garvin Jr. Room: [place] [address] Date: 06/12/2022 Summary Statement: Adelia Garvin Jr. is a 51 y.o. male with a history of CHF (EF 50% 2016), Afib (not on AC), HTN, CAD s/p stent 04/06 and 3 stent 12/07, T1DM (insulin pump at home), ESRD on PD, HLD, GERD, hyperparathyroidism, DDD, OA, gout, BEN on CPAP initially presented to OSH for n/v and chest pain, transferred to [facility] for LHC/PCI, who presented to CCU s/p [...] in anterior wall and anterior septem sugegsting CAD/CO in the LAD territory. LVEF is in [...] gout, BEN on CPAP initially presented to [facility] for n/v and chest pain, transferred to [facility] for LHC/PCI, who presented to the CCU [...] Pt became acutely hypoxic while in the biology laboratory assistant, required intubation; CXR prior to cath showed [...] HEME/ONC #Anemia Hgb 9.5 on admission to [facility] and 7.8 on arrival to CCU. Hgb [...] plan with the ICU team and other medical/nursing consultant staff. * Jeffrey Green MD - 06/11/2022 2:46 AM CDT CCU DAILY PROGRESS Patient: Adelia Garvin Jr. Room: [id number] Date: 06/11/2022 Summary Statement: Adelia Garvin Jr. is a 51 y.o. male with a history of CHF (EF 50% 2016), Afib (not on AC), HTN, CAD s/p stent 04/06 and 3 stent 12/07, T1DM (insulin pump at home), ESRD on PD, HLD, GERD, hyperparathyroidism, DDD, OA, gout, BEN on CPAP initially presented to OSH for n/v and chest pain, transferred to [facility] for LHC/PCI, who presented to CCU s/p complex PCI with impella and intubated. SUBJECTIVE Overnight: - Impella removed -Forest removed -Veletri weaned off -Tube feeds started [...] in anterior wall and anterior septem sugegsting CAD/CO in the LAD territory. LVEF is in [...] gout, BEN on CPAP initially presented to [facility] for n/v and chest pain, transferred to [facility] for LHC/PCI, who presented to the CCU [...] Pt became acutely hypoxic while in the biology laboratory assistant, required intubation; CXR prior to cath showed [...] HEME/ONC #Anemia Hgb 9.5 on admission to [facility] and 7.8 on arrival to CCU. Hgb [...] plan with the ICU team and other medical/nursing consultant staff. * Tyra De L aTorre MD - 06/10/2022 12:46 PM CDT CCU DAILY PROGRESS Patient: Adelia Garvin Jr. Room: [facility] CARDIAC CATH ROOM/NO* Date: 06/10/2022 Summary Statement: [...] for n/v and chest pain, transferred to [facility] for LHC/PCI, who presented to CCU s/p [...] in anterior wall and anterior septem sugegsting CAD/CO in the LAD territory. LVEF is in [...] gout, BEN on CPAP initially presented to [facility] for n/v and chest pain, transferred to [facility] for LHC/PCI, who presented to the CCU [...] Pt became acutely hypoxic while in the biology laboratory assistant, required intubation; CXR prior to cath showed [...] HEME/ONC #Anemia Hgb 9.5 on admission to [facility] and 7.8 on arrival to CCU. Hgb [...] plan with the ICU team and other medical/nursing consultant staff. * Lavern Morrison MD - 06/09/2022 6:31 AM CDT CCU DAILY PROGRESS Patient: Adelia Garvin Jr. Room: [id number] Date: 06/09/2022 Summary Statement: Adelia Garvin Jr. is a 51 y.o. male with a history of CHF (EF 50% 2017), Afib (not on AC), HTN, CAD s/p stent 8/17 and 3 stent 12/07, T1DM (insulin pump at home), ESRD on PD, HLD, GERD, hyperparathyroidism, DDD, OA, gout, BEN on CPAP initially presented to OSH for n/v and chest pain, transferred to [facility] for LHC/PCI, who presented to CCU s/p [...] in anterior wall and anterior septem sugegsting CAD/CO in the LAD territory. LVEF is in [...] gout, BEN on CPAP initially presented to [facility] for n/v and chest pain, transferred to [facility] for LHC/PCI, who presented to the CCU [...] Pt became acutely hypoxic while in the biology laboratory assistant, required intubation; CXR prior to cath showed [...] HEME/ONC #Anemia Hgb 9.5 on admission to [facility] and 7.8 on arrival to CCU. Hgb [...] plan with the ICU team and other medical/nursing consultant staff. * Roberto Carlos Newberry PT - 06/08/2022 3:00 PM CDT Physical Therapy 06/08/22 1500 General PT Missed Visit Reason Sedated;Other (comment) (pt intubated, sedated, primaflex CVVHD.) * Marcelina Pickard NP - 06/08/2022 7:58 AM CDT PROCEDURE: [facility] w/ complex PCI and Impella CP [...] statin therapy. Follow up appt with primary lead trainer, Dr Petit in 2-4 weeks post discharge. LOIDA Dos Santos Interventional Cardiology Nurse Practitioner [phone] Please refer to Cardiovascular Procedure Center Blood [...] DAILY PROGRESS Patient: Adelia Garvin Jr. Room: [id number] Date: 06/08/2022 Summary Statement: Adelia Garvin Jr. is a 51 y.o. male with a history of CHF (EF 50% 2016), Afib (not on AC), HTN, CAD s/p stent 04/06 and 3 stent 12/07, T1DM (insulin pump at home), ESRD on PD, HLD, GERD, hyperparathyroidism, DDD, OA, gout, BEN on CPAP initially presented to OSH for n/v and chest pain, transferred to [facility] for LHC/PCI, who presented to CCU s/p [...] 06/08/2022 0500 Gross per 24 hour Intake 42543.23 ml Output 71014 ml Net -328.77 ml Ventilator Settings: 20/500/80/12 [...] gout, BEN on CPAP initially presented to [facility] for n/v and chest pain, transferred to [facility] for LHC/PCI, who presented to the CCU [...] Pt became acutely hypoxic while in the biology laboratory assistant, required intubation; CXR prior to cath showed [...] HEME/ONC #Anemia Hgb 9.5 on admission to [facility] and 7.8 on arrival to CCU. Hgb [...] plan with the ICU team and other medical/nursing consultant staff. * Jess Redmond, PT - 06/07/2022 11:48 AM CDT Physical Therapy 06/07/22 1148 General PT Missed Visit Reason Procedure/testing/appointment (Nuclear Medicine Supervisor) * Conrad Akers MD - 06/07/2022 9:32 AM CDT MICU Attending Daily Note Name: Adelia Garvin Jr. Bed: [id number] : 1970 Age: 51 y.o. male Admit: [...] for contrast allergy in anticipation of [facility] today. Scheduled Meds:amLODIPine, 10 mg, oral, [...] 06/07/2022 0800 Gross per 24 hour Intake 97568.7 ml Output 18556 ml Net -1579.3 ml 24hr Min/Max: Temp [...] whenever feasible but would not delay [facility] For this Continue meropenem for gram [...] plan with the ICU team and other medical/nursing consultant staff. Conrad Akers MD Pulmonary/Critical Care * Girish Kirk MD - 06/07/2022 7:56 AM CDT [facility] Acute and Critical Care Surgery (ACCS) [...] Is&Os: I/O last 2 completed shifts: In: 18745.3 [P.O.:780; I.V.:444.3; Other:78132; IV Piggyback:100] Out: 85632 [Other:49638] No intake/output data recorded. Physical Exam: BP [...] evaluation. The pelvis is excluded from the [id number]-pj-afxj and unavailable for interpretation. A rounded density [...] essential hypertension Hyperlipidemia 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[place] artery of [place] heart with stable angina pectoris (CMS/HCC) (HCC) [...] OA, gout, BEN on CPAP [facility] weakness, n/v, diarrhea, and chest pain, transferred[facility] on 06/05 for LHC/PCI scheduled for 06/06. Pt was found to have an NSTEMI at OSH and was continued on hep gtt, asa81, plavix at [facility]. He was transferred to MICU after he [...] GB pathology - Serial abdominal exams - [facility] will continue to follow The care plan above has been or will be discussed with attending physician. Any changes will be communicated to the primary team. Please contact the [facility] Inpatient Consult Service at the number [...] patient today, as he was in the biology laboratory assistant upon my arrival. Later chart reviewrevealed a [...] MD Instructor, Acute and Critical Care Surgery [facility] [employer] * Amira Davenport RN - 06/06/2022 12:04 PM CDT CM Initial Assessment Interview Note Information Obtained From: Patient (06/06/22 1156) Admission Source: from [facility] Impression: Hx - CHF, Afib, HTN, CAD [...] (name, phone, availablity): Brother Jude Gallardo - [phone] Home Care Services: No Durable Medical Equipment: [...] Collaboration with patient, MD, direct care nurse, Wheel Borer, and other members of the health care team to assure needed interventions completed. 2. Return patient to optimal level of self-care post discharge. 3. Government Professor will follow for Discharge Planning - interventions [...] in agreement with the aftercare plan. Amira Daevnport RN * Conrad Akers MD - 06/06/2022 9:56 AM CDT MICU Attending Daily Note Name: Adelia Garvin Jr. Bed: [id number] : 1970 Age: 51 y.o. male Admit: [...] 06/06/2022 0900 Gross per 24 hour Intake 91346.47 ml Output 56292 ml Net -2112.53 ml 24hr Min/Max: Temp [...] (MSEC) 442 ms QTc 486 ms P [place] 49 degrees R [place] -33 degrees T [place] 87 degrees Diagnosis Normal sinus rhythm Possible [...] Magnesium 2.1 1.4 - 2.5 mg/dL POCT [id number], WB - ISTAT Collection Time: 06/05/22 3:22 [...] findings include: Troponin [place] 4800 NT-proBNP 14041 CXR with bilateral fluffy opacities RUQ US [...] scan when feasible, would not delay [facility] for this Continue meropenem for gram negative and anaerobic coverage Consult HPB pending [facility] plans Will almost certainly need to [...] control Wean O2 as tolerated, currently on DC Hypertensive urgency/emergency With associated flash pulmonary edema [...] plan with the ICU team and other medical/nursing consultant staff. Conrad Akers MD Pulmonary/Critical Care [...] REMOVE PERC ARTERIAL VAD (IMPELLA), DIFFERENT SESSION [id number] Cosigned by Champ Osborne MD PhD at 06/10/2022 10:55 AM CDT Source Note - Jeffrey Green MD - 06/07/2022 2:03 PM CDT . CCU ADMISSION HISTORY AND PHYSICAL Patient: Adelia Garvin Jr. Room: [facility] CARDIAC CATH ROOM/NO* Date: 06/07/2022 SUBJECTIVE CCU INDICATION: Cardiogenic shock HISTORY OF PRESENT ILLNESS Adelia Garvin Jr. is a 51 y.o. male with a history of CHF (EF 50% 2016), Afib (not on AC), HTN, CAD s/p stent 04/06 and 3 stent 12/07, T1DM (insulin pump at home), ESRD on PD, HLD, GERD, hyperparathyroidism, DDD, OA, gout, BEN on CPAP initially presented to [facility] for n/v and chest pain, transferred to [facility] for LHC/PCI, now presenting to CCU s/p complex PCI with impella and intubated. At the OSH he presented with 3d generalized weakness, chills, ROONEY, n/v, chest pain relieved by sublingual ntg. His labs were notable for trop 1.0-->1.09-->0.729, BNP 76533. He had a CT CAP showing cholelithiasis [...] circumflex as optimal treatment, prompting transfer to [place]. He arrived at [place] 06/05. EKG showed sinus bradycardia, 1st deg [...] Diabetes mellitus (HCC) Diabetes mellitus type I ([facility]) Dialysis patient ([facility]) (HCC) ESRD on dialysis ([facility]) ([facility]) GERD (gastroesophageal reflux disease) Hyperlipidemia [...] 06/07/2022 1100 Gross per 24 hour Intake 45644.04 ml Output 67450 ml Net -1701.96 ml REVIEW OF LABORATORY [...] gout, BEN on CPAP initially presented to [facility] for n/v and chest pain, transferred to [facility] for LHC/PCI, now presenting to CCU s/p [...] Pt became acutely hypoxic while in the biology laboratory assistant, required intubation; CXR prior to cath showed [...] AND PHYSICAL Patient: Adelia Garvin Jr. Room: [facility] CARDIAC CATH ROOM/NO* Date: 06/07/2022 SUBJECTIVE CCU INDICATION: Cardiogenic shock HISTORY OF PRESENT ILLNESS Adelia Garvin Jr. is a 51 y.o. male with a history of CHF (EF 50% 2017), Afib (not on AC), HTN, CAD s/p stent 04/06 and 3 stent 12/07, T1DM (insulin pump at home), ESRD on PD, HLD, GERD, hyperparathyroidism, DDD, OA, gout, BEN on CPAP initially presented to [facility] for n/v and chest pain, transferred to [facility] for LHC/PCI, now presenting to CCU s/p complex PCI with impella and intubated. At the OSH he presented with 3d generalized weakness, chills, ROONEY, n/v, chest pain relieved by sublingual ntg. His labs were notable for trop 1.0-->1.09-->0.729, BNP 60785. He had a CT CAP showing cholelithiasis [...] circumflex as optimal treatment, prompting transfer to [place]. He arrived at [place] 06/05. EKG showed sinus bradycardia, 1st deg [...] type I (HCC) Dialysis patient ([facility]) (HCC) ESRD on dialysis ([facility]) ([facility]) GERD (gastroesophageal reflux disease) Hyperlipidemia [...] 06/07/2022 1100 Gross per 24 hour Intake 12962.04 ml Output 45605 ml Net -1701.96 ml REVIEW OF LABORATORY [...] gout, BEN on CPAP initially presented to [facility] for n/v and chest pain, transferred to [facility] for LHC/PCI, now presenting to CCU s/p [...] Pt became acutely hypoxic while in the biology laboratory assistant, 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 Forest-Liv catheter reviewed that shows adequate cardiac output [...] plan with the ICU team and other medical/nursing consultant staff. * Marcelina Pickard NP - 06/07/2022 10:26 AM CDT I have reviewed the H&P, examined the patient, and endorse the findings as written. Plan of Care : Based on the above findings, I consider Adelia Garvin Jr. to be an acceptable risk for : Procedure(s): PCI MARIELLA MAJOR CORONARY C9600 - [id number] Cosigned by Champ Osborne MD PhD at [...] gout, BEN on CPAP initially presented to [facility] for generalized weakness, n/v, diarrhea, and chest pain, transferred to [facility] for LHC/PCI scheduled for 06/06, and presenting to the MICU after he was placed on NIPPV during an ACT for hypoxic respiratory failure. At OSH, pt presented w 3d of generalized weakness, loss of appetite, chills, ROONEY, n/v/d, and intermittent chest pain relieved by sublingual ntg. Labs at OSH notable for WBC 6.1, hgb 10.2, plt 206, trop I 1.0->1.09->0.729, BNP 57647. CTAP cholelithiasis w mild gallbladder distension, airspace [...] doneat tertiary center. Pt was transferred to [facility] floor overnight. Labs notable for Na 129, [...] (coronary artery disease) Chest pain Diabetes mellitus ([facility]) Diabetes mellitus type I ([facility]) Dialysis patient ([facility]) ESRD on dialysis ([facility]) GERD (gastroesophageal reflux disease) Hyperlipidemia [...] 0659 06/05/22 0700 - 06/06/22 0659 Shift 6721-4034 6058-6312 24 Hour Total 8069-4225 9394-8752 24 Hour Total INTAKE P.O. 60 60 Other 31334 02561 Shift Total(mL/kg) 04747(83.5) 28485(83.5) OUTPUT Urine 0 0 Other 32932 36203 Stool 0 0 Shift Total(mL/kg) 06563(87.7) 56730(87.7) NET -603 -603 Weight (kg) 142 142 [...] Magnesium 2.1 1.4 - 2.5 mg/dL POCT EM-Y-TFZ-GLU-HCT, WB - ISTAT Collection Time: 06/05/22 3:22 [...] to OSH with NSTEMI, CAP, transferred to [facility] for LHC/PCI scheduled for 06/06, andpresenting to [...] downtrending since admission. EKG unchanged. - [facility] 06/06 at 10:30am (NPO [place]) - [...] gout, BEN on CPAP initially presented to [facility] for generalized weakness, n/v, diarrhea, and chest pain, transferred to [facility] for LHC/PCI scheduled for 06/06, and presenting to the MICU after he was placed on NIPPV during an ACT for hypoxic respiratory failure. At OSH, pt presented w 3d of generalized weakness, loss of appetite, chills, ROONEY, n/v/d, and intermittent chest pain relieved by sublingual ntg. Labs at OSH notable for WBC 6.1, hgb 10.2, plt 206, trop I 1.0->1.09->0.729, BNP 13423. CTAP cholelithiasis w mild gallbladder distension, airspace [...] doneat tertiary center. Pt was transferred to [facility] floor overnight. Labs notable for Na 129, [...] (coronary artery disease) Chest pain Diabetes mellitus ([facility]) Diabetes mellitus type I ([facility]) Dialysis patient ([facility]) ESRD on dialysis ([facility]) GERD (gastroesophageal reflux disease) Hyperlipidemia [...] 0659 06/05/22 0700 - 06/06/22 0659 Shift 5408-2801 7664-3815 24 Hour Total 7749-8493 6256-7788 24 Hour Total INTAKE P.O. 60 60 Other 67153 40223 Shift Total(mL/kg) 36468(83.5) 63477(83.5) OUTPUT Urine 0 0 Other 79117 77064 Stool 0 0 Shift Total(mL/kg) 95746(87.7) 66645(87.7) NET -603 -603 Weight (kg) 142 142 [...] Magnesium 2.1 1.4 - 2.5 mg/dL POCT GT-I-FMA-GLU-HCT, WB - ISTAT Collection Time: 06/05/22 3:22 [...] to OSH with NSTEMI, CAP, transferred to [facility] for LHC/PCI scheduled for 06/06, andpresenting to [...] plan with the ICU team and other medical/nursing consultant staff. * Russ Milner MD - [...] gout, BEN on CPAP initially presented to [facility] for generalized weakness, n/v, diarrhea, and chest pain now being transferred for LHC/PCI 06/06. Patient initially presented with generalized weakness for the last 3 days. He then began to endorsen/v and diarrhea as well as chest pain which waxes and wanes and improves with sublingual ntg. He also reported decreased appetite, chills, dyspnea with exertion, and nonproductive cough. Patient follows with [facility] for cardiology. He [...] 105, Lipase 65, troponin I 1.0->1.09->0.729, BNP 28576. Covid, influenza negative. CXR showed left basilar [...] (coronary artery disease), Chest pain, Diabetes mellitus ([facility]), Diabetes mellitus type I ([facility]), Dialysis patient ([facility]), ESRD on dialysis ([facility]),GERD (gastroesophageal reflux disease), Hyperlipidemia, Hypertension, [...] gout, BEN on CPAP initially presented to [facility] for generalized weakness, n/v, diarrhea, andchest pain now being transferred for LHC/PCI 06/06. #CHF #CAD s/p PCI 03/2017 (RCA) and 3 stent 12/07 (prox, mid, and distal RCA) OSH txf for LHC/PCI w Dr. Osborne 06/06 at 10:30am. [facility]. He did have angiogram in 2020 which showed patent stents in RCA and PDA, previouslyjailed posterolateral occluded and 50% stenosis in branch of OM1. Endorsing chest pain iso n/v/diarrhea/ROONEY. Elevated troponin I 1.0->1.09->0.729, BNP 27992. EKG with sinus rhythm with left anterior [...] no changes in EKG->restarted heparin gtt -[facility] 06/06 at 10:30am (NPO [place]) -heparin [...] white count, elevated troponin I 1.0->1.09->0.729, BNP 40233, lipase 65. Covid, influenza negative. CXR showed [...] 24h UF 1074 ml Won Navarro MD hot press operator Division of Nephrology NEPHROLOGY PROCEDURE NOTE Date [...] 116.1 kg (255 lb 15.3 oz) Height: POKER MANAGER vascular access: PD catheter Other findings: Date 06/25/22699 - 06/26/22 0659 06/26/22699 - 06/27/22 0659 Shift 1220-0926 5321-1203 24 Hour Total 3195-2052 7925-2764 24 Hour Total INTAKE P.O. 360 360 Other 37178 40773 Shift Total(mL/kg) 360(3) 33316(105.7) 50106(108.8) OUTPUT Urine(mL/kg/hr) 100(0.1) 100(0) 300 300 Other 49420 99718 Shift Total(mL/kg) 100(0.8) 53998(119) 91241(119.9) 300(2.6) 300(2.6) NET 260 -1547 -1287 -300 [...] FERRITIN 2,062 (H) 06/07/2022 Won Navarro MD hot press operator Nephrology Division IST ORGAN[employer] * Aleida Lambert, HEAD TRANSFER CLERK - 06/21/2022 2:02 PM CDTAssociated Order(s): HEAD TRANSFER CLERK EVALUATE AND TREAT VIDEOFLUOROSCOPIC SWALLOW STUDY Speech-Language [...] reported General Information Adelia Garvin Jr. 06/21/22 HEAD TRANSFER CLERK Received On: 06/21/22 General Observations: presents alert, [...] Administered: Thin liquids (via spoon & straw), [place] thickened liquids (via spoon & straw), Purees, Honey thickened liquids via spoon, Solids. Patient took large sips requiring more than 1 swallow even when cued for small sip. Administered consistencies contain barium product. Thin Liquids: Laryngeal Penetration: Present Aspiration Present: No Penetration Aspiration Scale-Thin: 4-Material enters the airway, contacts the vocal folds and is ejected from the airway [place] Thickened Liquids: Laryngeal Penetration: Present Aspiration Present: No Penetration Aspiration Scale-[place]: 2-Material enters the airway, remains above the [...] treatment goals and details, if indicated. Plan HEAD TRANSFER CLERK Frequency of Services: 2-3x/wk HEAD TRANSFER CLERK Recommendation (Add'l Services): Inpatient Rehab Facility Next [...] National Outcomes Measurement System: (pending MBS) Plan HEAD TRANSFER CLERK Frequency of Services: Pending instrumental assessment Further [...] Poe MD Authorized by: Aj Poe MD Caspar Protocol: RN Notified of Procedure: yes Informed consent: Patient/inside sales representative/guardian agrees and accepts and risks, [...] Brody, the patient's brother. Aj Poe MD Technical Proposal Writer, PGY-5 Cosigned by Rufino Flores MD at 06/20/2022 9:33 AM CDT * Lavern Morrison MD - 06/07/2022 10:17 PM CDTAssociated Order(s): Arterial Line Insertion Post-Procedure Diagnose(s): Hypotension, unspecified hypotension type Arterial Line Insertion Date/Time: 06/07/2022 10:17 PM Performed by: Lavern Morrison MD Authorized by: Lavern Morrison MD Caspar Protocol: RN Notified of Procedure: yes Informed [...] for n/v and chest pain, transferred to [facility] for LHC/PCI, who presented to CCU s/p complex PCI with impella and intubated. Now extubated, tolerating PO intake, on home PD. Arrived at [place] from OSH on 06/05. EKG showed sinus [...] Diabetes mellitus type I (HCC), Dialysis patient ([facility]) (HCC), ESRD on dialysis ([facility]) (HCC), GERD (gastroesophageal reflux disease), [...] 06/23/2022 1747 Gross per 24 hour Intake 92390 ml Output 96840 ml Net -2325 ml Physical Exam: General: [...] ESRD on PD who was transferred to [facility] for an impella-supported complex PCI on 06/07/22 [...] 5PM or on weekends, please page the shearing machine feeder hadoop application developer with any questions or concerns. Will Villavicencio MD Technical Proposal Writer 5:59 PM 06/23/22 Cosigned by Musa Fernando MD at 06/23/2022 7:53 PM CDT Associated attestation - Musa Fernando MD - 06/23/2022 7:53 PM CDT 06/23/2022 I have personally seen and examined this pt with resident/Fellow/SUCTION ROLLER . I have reviewed History/Physical exam and plan for management. I agree with it . Musa Fernando M.D., F.A.CSharathC. ed manager [facility] [employer] [facility]. [place] This note contains information [...] about verbage above please contact me at [phone]. . * Mckenzie Phelan, RD - 06/15/2022 [...] gout, BEN on CPAP initially presented to [facility] for generalized weakness, n/v, diarrhea, and chest pain now being transferred for LHC/PCI 06/06. Objective Past Medical History: Diagnosis Date CAD (coronary artery disease) Chest pain Diabetes mellitus (HCC) Diabetes mellitus type I (HCC) Dialysis patient ([facility]) (HCC) ESRD on dialysis ([facility]) (HCC) GERD (gastroesophageal reflux disease) [...] of Weight Used for Estimated Protein : [place] Protein Needs Based on g/k.7 Total Protein [...] Evaluation: TF tolerance Mckenzie Phelan RDN LD [phone] * Sandrine Myers MD - 06/15/2022 10:42 [...] Pulmonary will continue to follow. Please call hadoop application developer pulmonary consult fellow with additional questions or [...] gout, BEN on CPAP initially presented to [facility] for generalized weakness, n/v, diarrhea, and chest pain now being transferred for LHC/PCI 06/06. Objective Past Medical History: Diagnosis Date CAD (coronary artery disease) Chest pain Diabetes mellitus (HCC) Diabetes mellitus type I (HCC) Dialysis patient (CMS/HCC) (HCC) ESRD on dialysis ([facility]) (HCC) GERD (gastroesophageal reflux disease) [...] of Weight Used for Estimated Protein : [place] Protein Needs Based on g/k.5 Total Protein [...] Monitoring and Evaluation: TF tolerance ADAMA Tejada Com Writer RD number [phone] * Ronny Vasquez - 06/10/2022 2:21 PM [...] gout, BEN on CPAP initially presented to [facility] for generalized weakness, n/v, diarrhea, and chest pain now being transferred for LHC/PCI 06/06. Objective Past Medical History: Diagnosis Date CAD (coronary artery disease) Chest pain Diabetes mellitus (HCC) Diabetes mellitus type I (HCC) Dialysis patient ([facility]) (HCC) ESRD on dialysis ([facility]) ([facility]) GERD (gastroesophageal reflux disease) Hyperlipidemia [...] TF tolerance Ronny Vasquez MS RDN LD Com Writer RD number [phone] * Patricio Pearce MD - 06/09/2022 1:10 [...] failure. Briefly, the patient was transferred to [facility] for complex PCI for NSTEMI on 06/04. He was initially on the medicine floor then went into flash pulmonary edema in setting of hypertension and NSTEMI and was transferred to the MICU for NPPV. CXR showed significant pulmonary edema. Labs notable for BNP 43885, trops 4000. He was also found to [...] dilated RV with normal RV systolic function. [place] numbers from earlier today indicat PA 36/17, [...] type I (HCC) Dialysis patient ([facility]) (HCC) ESRD on dialysis ([facility]) ([facility]) GERD (gastroesophageal reflux disease) Hyperlipidemia [...] CDTAssociated Order(s): IP CONSULT TO GENERAL SURGERY [facility] Consult Note Requesting Consult: Conrad Akers MD Reason for Consult: cholecystitis Assessment: 51M w/PMHB CHF (EF 50% 2016), Afib (not on AC), HTN, CAD s/p stent 04/06 and 3 stent 12/07, T1DM (insulin pump at home), ESRD on PD, HLD, GERD, hyperparathyroidism, DDD, OA, gout, BEN on CPAP [facility] for generalized weakness, n/v, diarrhea, and chest pain, transferredto [facility] on 06/05 for LHC/PCI scheduled for 06/06. Pt was found to have an NSTEMI at OSH and was continued on hep gtt, asa81, plavix at [facility]. He was transferred to MICU after he [...] with attending Dr. Gamez. Please contact [facility] Inpatient Consults at with any questions [...] OA, gout, BEN on CPAP [facility] generalized weakness, n/v, diarrhea, and chest pain, transferredto [facility] on 06/05 for LHC/PCI scheduled for 06/06. Pt was found to have an NSTEMI at OSH and was continued on hep gtt, asa81, plavix at [facility]. He was transferred to MICU after he [...] (coronary artery disease) Chest pain Diabetes mellitus ([facility]) Diabetes mellitus type I ([facility]/H[facility]) Dialysis patient ([facility]) ESRD on dialysis ([facility]) GERD (gastroesophageal reflux disease) Hyperlipidemia [...] evaluation. The pelvis is excluded from the [id number] and unavailable for interpretation. A rounded density [...] only and have not been reviewed by [facility]. There will be no report generated by a [facility] Radiologist. XR Outside Reference Result Date: 06/05/2022 These images are for Reference purposes only and have not been reviewed by [facility]. There will be no report generated by a [facility] Radiologist. US RUQ Result Date: 06/06/2022 [...] only and have not been reviewed by [facility]. There will be no report generated by a [facility] Radiologist. IR Outside Reference Result Date: 06/05/2022 These images are for Reference purposes only and have not been reviewed by [facility]. There will be no report generated by a [facility] Radiologist. Assessment/Plan: Please see top of note. Cosigned by Modesta Gamez MD at 06/07/2022 9:34 PM CDT Associated attestation - Modesta Gamez MD - 06/07/2022 9:34 PM CDT I have seen and examined the patient on 06/06/2022. I agree with the findings and plan of care as documented in the resident's/fellow's note. Nona Gamez MD Instructor, Acute and Critical Care Surgery [facility] [employer] ' * Hortencia Slade MD - 06/05/2022 2:37 PM CDTAssociated Order(s): CONSULT TO ENDOCRINOLOGY DIABETES Endocrinology & Diabetes Consult Note Patient: Adelia Garvin Jr., 51 y.o. male (: 1970) Room: [id number] ( ) LOS: 1 Consult Question: T1DM on insulin pump (Requesting Provider: Champ Osborne MD PhD) Adelia Garvin Jr. is a 51 y.o. male with PMHx CHF (EF 50% in 2017), atrial fibrillation not on OAC, HTN/HLD, CAD s/p PCI, ESRD on PD, hyperparathyroidism presenting with weakness, N/V, diarrhea and chest pain. He is scheduled for [facility] on 06/06. Diabetes service consulted for [...] (coronary artery disease), Chest pain, Diabetes mellitus ([facility]), Diabetes mellitus type I ([facility]), Dialysis patient ([facility]), ESRD on dialysis ([facility]), GERD (gastroesophageal reflux disease), Hyperlipidemia, [...] is 44.91 kg/m??. I/O this shift: In: 82734 [P.O.:60; Other:61997] Out: 44316 [Other:68800] Physical Exam Gen : no acute distress, [...] Plan 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, with assistant terminal manager use of insulin, complicated by ESRD on [...] ## Discharge Planning - Follow-up with home mechanical facilities technician Discussed with Dr. Huynh and primary team [...] Date: 2019 Dialysis Days: nightly Dialysis Center: [place], [place] Dialysis Medicine: Dialysis Prescription: CCPD - 4 exchanges of 2.8 L each, total time 9 hours, total volume : 11.2 L.All 2.5 % bags and then a manual day time exchange with 1 L purple bag. Past Medical History: Diagnosis Date CAD (coronary artery disease) Chest pain Diabetes mellitus (CMS/HCC) Diabetes mellitus type I (CMS/HCC) Dialysis patient (CMS/HCC) ESRD on dialysis ([facility]) GERD (gastroesophageal reflux disease) Hyperlipidemia [...] No rash or lesions on visible skin ASSISTANT PROFESSOR OF MUSIC: Alert Ox3. No focal motor deficits, no [...] cell count and diff. Vonnie Cody MD hot press operator documented in this encounter Nursing Notes * Tequila Ingram RN - 06/28/2022 8:08 PM CST 9 hour CCPD treatment started as ordered. PD catheter site is clear and free of drainage. PD site was cleansed and gentamicin cream applied at entrance. Covered with gauze dressing. Treatment setup aseptically per protocol. [employer]ST [employer]GAN[employer] * Pj Duckworth RN - 06/28/2022 6:15 AM CST 06/28/22 0600 Vitals BP 124/62 Temp 36.7 ??C (98.1 ??F) Temp src Oral Pulse 70 Resp 16 SpO2 98 % Weight 120.3 kg (265 lb 3.4 oz) Peritoneal Dialysis Dialysis Type CCPD Peritoneal Dialysis Setup Completed by superintendent electric powerpainter decorator Status End Cycle Number 4 Machine Type Pegasus TechnologiesChoice Pro Machine # [id number] Initial Drain Volume (mL) 312 mL Last Fill Volume (mL) 999 mL Fill Volume In (mL) 18711 mL Effluent Volume Out (mL) 69243 ml Effluent Appearance Clear;Yellow Balance This Exchange (mL) 1788 mL Peritoneal Dialysis Catheter Continuous cycling No placement date or time found. Placed by External Staff?: Other (Comment) Dialysis Type: Continuous cycling Status Deaccessed;Clamped Dressing Gauze Dressing Status Clean, dry, intact IST ORGANIC * Pj Duckworth RN - 06/27/2022 8:21 PM CST Started CCPD. Target treatment time is 9 hours. IST ORGANIC * Pj Duckworth RN - 06/27/2022 6:24 AM CST 06/27/22 0600 Peritoneal Dialysis Dialysis Type CCPD Peritoneal Dialysis Setup Completed by superintendent electric powerpainter decorator Status End Cycle Number 4 Machine Type [employer] HomeChoice Pro Machine # [id number] Initial Drain Volume (mL) 690 mL Last Fill Volume (mL) 785 mL Fill Volume In (mL) 18717 mL Effluent Volume Out (mL) 45384 ml Effluent Appearance Clear;Yellow Balance This Exchange (mL) 1944 mL Peritoneal Dialysis Catheter Continuous cycling No placement date or time found. Placed by External Staff?: Other (Comment) Dialysis Type: Continuous cycling Status Deaccessed;Clamped Dressing Gauze Dressing Status Clean, dry, intact IST ORGANIC * Pj Duckworth RN - 06/26/2022 7:52 PM CST Started CCPD. Target treatment time is 9 hours. IST ORGANIC * Pj Duckworth RN - 06/25/2022 8:41 PM CDT Started CCPD. Target treatment time is 9 hours. * Pj Duckworth RN - 06/25/2022 6:09 AM CDT 06/25/22 0600 Peritoneal Dialysis Dialysis Type CCPD Peritoneal Dialysis Setup Completed by superintendent electric powerpainter decorator Status End Cycle Number 4 Machine Type [employer] HomeChoice Pro Machine # [id number] Initial Drain Volume (mL) 423 mL Last Fill Volume (mL) 999 mL Fill Volume In (mL) 22721 mL Effluent Volume Out (mL) 34486 ml Effluent Appearance Clear;Yellow Balance This Exchange [...] at 150 ml/hr. 4K/2.5Ca dialysate fluid used. MANUFACTURING MANAGER has no questions or concerns at this time, contact number left at bedside. * Mell Daniel RN - 06/19/2022 10:01 AM CDT CVVHDF reset. Prismaflex #12 used. Warmer set at 40.5 using toney tubing through RIJ catheter. All pressures within normal limits. UF rate at 200 ml/hr. 4K/2.5Ca dialysate fluid used. MANUFACTURING MANAGER has no questions or concerns at this [...] Type CCPD Peritoneal Dialysis Setup Completed by superintendent electric powerpainter decorator Status End Initial Drain Volume (mL) 429 [...] Change Due 06/19/22 Site Assessment Clean and dry;[place] * Jaja Mojica RN - 06/17/2022 12:43 PM CDT CCPD initiated per protocol and per order. Aury, MANUFACTURING MANAGER notified and contact phone number left atthe bedside. * Jaja Mojica RN - 06/17/2022 12:21 PM CDT Pt's CCPD tx ended per protocol. Last fill of 0mL, total UF of 1213 clear, yellow, non odorous effluent. Aury, MANUFACTURING MANAGER notified. Setting up next CCPD ordered to [...] without redness or drainage. Skin cleaned with [place] Secura skin cleanser, dried, then a thin [...] Blood flow and pressures WNL. Spoke to MANUFACTURING MANAGERLUAN Ramos, she has no questions or concerns [...] on venous line. Blood flow and pressures WNL.blocker polishing has no questions or concerns at present [...] 06/07/2022 7:32 PM CDT [place] [id number] at 1637 and all initial hookups made. [...] degrees with alexander cord on return line. MANUFACTURING MANAGER has no questions or concerns at this [...] orders entered earlier [place]. [place] [address] ml over 4Cycles of 2800 ml each [...] gout, BEN on CPAP initially presented to [facility] for generalized weakness, n/v, diarrhea, and chest [...] another 6u IV regular insulin given 06/08: [facility] - -C/f DKA given BG [...] started to prevent him from going to /20: CCM - #DKA - resolved In CCU, [...] part of the patient???s medical record. Sincerely, [facility] Information Management IST ORGANIC * Consults, Subsequent - Dora Delarosa NP - 06/29/2022 12:55 PM CHEMIST ORGANIC Endocrinology & Diabetes Progress Note Patient: Adelia Gavrin Jr., 51 y.o. male (: 1970) Room: [place] [id number]/[id number] ( ) LOS: 25 Adelia Garvin Jr. [...] agitation. 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, with assistant terminal manager use of insulin, complicated by ESRD on PD, CAD s/p PCI, CHF - HbA1c 7.4% - Uses Omnipod and Dexcom G6 at home, not currently on this- doesn't have the supplies -On significantly higher basal rates on pump at night due to peritoneal dialysis -home settings: Basal rate 0330 >>1.7 0800 >> 0.8 2000 >> 5.8 ICR1:6.5 ISF1:25 [id number] TIA 4 Over the previous 24 hours, [...] recommend increasing the basal insulin dose from 4773-5528 today. We will continue to intensely monitor [...] yearly or sooner as indicated by your non destructive evaluation specialist # ESRD on PD - CKD and ESRD are independent risk factors for hypoglycemia ## Discharge Planning - Follow-up with home mechanical facilities technician -- Dora Delarosa NP Endocrinology, Metabolism, & Lipid Research Contact Info: New Consults: [phone]) General Endocrine (Non-Diabetes): [phone] (Check 'Treatment Team' assignment for Diabetes 1 vs 2 vs 3) Diabetes 1: Diabetes Fellow: [phone] Diabetes 2: Dora Delarosa NP: [phone] Diabetes 3: See Treatment Team Provider (or call Dora Delarosa, above) Diabetes After-Hours & Weekends: Diabetes Fellow IST ORGANIC * Plan of Care - Elsie Gonzalez RN - 06/29/2022 11:32 AM CST [facility] [phone] Post Acute Care Transfer Report Adelia Garvin Jr. 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 (CMS/[facility]) (HCC) 05/23/2017 - Present 06/22/2022 [...] Valerie Added automatically from request for surgery [id number] DELETED: Angina pectoris (HCC) 06/04/2022 - Present [...] MD Added automatically from request for surgery [id number] Anemia 06/22/2022 - Present 06/29/2022 by Frank Bowers MD Entered by Luiz Lewis DO All Assessment & Plan Notes ESRD (end stage renal disease) ([facility]) ([facility]) 06/22/2022 - Present 06/29/2022 by Frank Bowers MD Entered by Luiz Lewis DO All Assessment & Plan Notes Acute on chronic HFrEF (heart failure with reduced ejection fraction) ([facility]) 06/22/2022 - Present 06/29/2022 by Frank Bowers MD Entered by Luiz Lewis DO All Assessment & Plan Notes Atrial fibrillation ([facility]) ([facility]) 06/22/2022 - Present 06/29/2022 by Frank Bowers MD Entered by Luiz Lewis DO All Assessment & Plan Notes Principal NSTEMI (non-ST elevated myocardial infarction) ([facility]) ([facility]) 06/22/2022 - Present 06/29/2022 by Frank Bowers MD Entered by Luiz Lewis DO All Assessment & Plan Notes Cardiogenic shock ([facility]) 06/22/2022 - Present 06/29/2022 by [...] ...filed at 06/04/2022 2300 Patient Language and Baptism Flowsheet Row Most Recent Value Patient's Preferred [...] 06/29/22 0700 - 06/30/22 0659 Total Total 0382-7629 3252-4024 1044-4064 Total 3387-0040 4977-0534 4044-1430 Total Intake (ml) 54907 24180 400 360 40276 16601 360 -- -- 360 Output (ml) 36409 68530 150 -- 99082 80142 -- -- -- -- Net (ml) -1709 [...] as: PriLOSEC acetaminophen (TYLENOL) tablet 1,000 mg [[id number]] Ordering Provider: Luiz Lewis DO Status: Dispensed Ordered On: 06/22/221923 Start: 06/22/221929 Ordered Dose (Remaining/Total): 1,000 mg (--/--) Route: oral Frequency: Every 6 hours PRN Ordered Rate/Order Duration: -- / -- Timestamps Action Dose Route Other Information Performed 06/27/221746 Documented: 06/27/221746 Given 1,000 mg oral Performed by: Manda Lake RN Scanned Package: 24626-527-35, 01584-447-70 acetaminophen (TYLENOL) tablet 325 mg [[id number]] Ordering Provider: Meme Castro MD Status: Completed (Past End Date/Time) Ordered On: 06/15/22 1014 Starts/Ends: 06/15/22 1045 - 06/15/22 0945 Ordered Dose (Remaining/Total): 325 mg (0/1) Route: oral Frequency: Once Ordered Rate/Order Duration: -- / -- Timestamps Action Dose Route Other Information Performed 06/15/22 0945 Documented: 06/15/22 1104 Given 325 mg oral Performed by: Ravi Hollingsworth RN Scanned Package: [address]-2 albuterol HFA (PROVENTIL HFA,VENTOLIN HFA,PROAIR HFA) 90 mcg/actuation inhaler 2 puff [[id number]] Ordering Provider: Fernando Torres MD Status: Dispensed Ordered On: 06/05/22244 Start: 06/05/22228 Ordered Dose (Remaining/Total): 2 puff (--/--) Route: inhalation Frequency: Every 6 hours PRN (foreign correspondent) Ordered Rate/Order Duration: -- / -- Timestamps Action Dose Route Other Information Performed 06/15/22249 Documented: 06/15/22252 Given 2 puff inhalation Performed by: Juanito Hernandez RRT Scanned Package: 2358-9741-77 alteplase (CATHFLO) 1 mg/mL syringe (premix) 1 mg [[id number]] Ordering Provider: Lavern Morrison MD Status: Completed (Past End Date/Time) Ordered On: 06/09/22409 Starts/Ends: 06/09/22444 - 06/09/22447 Ordered Dose (Remaining/Total): 1 mg (0/1) Route: intra-catheter Frequency: Once Ordered Rate/Order Duration: -- / -- Admin Instructions: 60 to 120 minute dwell time. Refrigerate Timestamps Action Dose Route Other Information Performed 06/09/22447 Documented: 06/09/22447 Given 1 mg intra-catheter Performed by: Rachel Masters RN Scanned Package: 7931-1156-08 alteplase (CATHFLO) 1 mg/mL syringe (premix) 1 mg [[id number]] Ordering Provider: Robert Henry MD Status: Completed [...] Performed by: Manda Pickett RN Scanned Package: 3007-9316-02 alteplase (CATHFLO) 1 mg/mL syringe (premix) 2 mg [[id number]] Ordering Provider: Robert Henry MD Status: Completed (Past End Date/Time) Ordered On: 06/11/221655 Starts/Ends: 06/11/221729 - 06/11/221809 Ordered Dose (Remaining/Total): 2 mg (0/1) Route: intra-catheter Frequency: Once Ordered Rate/Order Duration: -- / -- Admin Instructions: 60 to 120 minute dwell time. Refrigerate Timestamps Action Dose Route Other Information Performed 06/11/221809 Documented: 06/11/221809 Given 2 mg intra-catheter Performed by: Manda Pickett RN Scanned Package: 4187-1478-06, 4650-7295-99 alteplase (CATHFLO) 1 mg/mL syringe (premix) 2 mg [[id number]] Ordering Provider: Robert Henry MD Status: Completed (Past End Date/Time) Ordered On: 06/11/221655 Starts/Ends: 06/11/221729 - 06/11/221810 Ordered Dose (Remaining/Total): 2 mg (0/1) Route: intra-catheter Frequency: Once Ordered Rate/Order Duration: -- / -- Admin Instructions: 60 to 120 minute dwell time. Refrigerate Timestamps Action Dose Route Other Information Performed 06/11/221810 Documented: 06/11/221810 Given 2 mg intra-catheter Performed by: Manda Pickett RN Scanned Package: 5890-7433-47, 8517-7387-89 amiodarone (NEXTERONE) 150 mg/100 mL (1.5 mg/mL) in dextrose (premix) 150 mg [[id number]] Ordering Provider: Jeffrey Green MD Status: Completed [...] (1.5 mg/mL) in dextrose (premix) 150 mg [[id number]] Ordering Provider: Lavern Morrison MD Status: Completed [...] Performed by: Carlos Esparza RN Scanned Package: 36736-326-22 amiodarone (NEXTERONE) 150 mg/100 mL (1.5 mg/mL) in dextrose (premix) 150 mg [[id number]] Ordering Provider: Lavern Morrison MD Status: Completed [...] Performed by: Carlos Esparza RN Scanned Package: 88580-094-95 amiodarone (NEXTERONE) 150 mg/100 mL (1.5 mg/mL) in dextrose (premix) 150 mg [[id number]] Ordering Provider: Tyra De La Torre MD [...] Escobar RN aspirin chewable tablet 81 mg [[id number]] Ordering Provider: Marcelina Pickard NP Status: Completed (Past End Date/Time) Ordered On: 06/07/22 1112 Starts/Ends: 06/07/22 1145 - 06/07/22 1137 Ordered Dose (Remaining/Total): 81 mg (0/1) Route: oral Frequency: Once Ordered Rate/Order Duration: -- / -- Timestamps Action Dose Route Other Information Performed 06/07/22 1137 Documented: 06/07/22 1138 Given 81 mg oral Performed by: Carolyn Troncoso RN Scanned Package: 7262-0664-77 aspirin chewable tablet 81 mg [[id number]] Ordering Provider: Luiz Lewis DO Status: Dispensed Ordered On: 06/22/22 1924 Start: 06/23/22 0900 Ordered Dose (Remaining/Total): 81 mg (--/--) Route: oral Frequency: Daily Ordered Rate/Order Duration: -- / -- Timestamps Action Dose Route Other Information Performed 06/29/22 0823 Documented: 06/29/22 0824 Given 81 mg oral Performed by: Manda Laek RN Scanned Package: 0533-6938-70 atorvastatin (LIPITOR) tablet 80 mg [[id number]] Ordering Provider: Luiz Lewis DO Status: Dispensed Ordered On: 06/22/221923 Start: 06/23/22899 Ordered Dose (Remaining/Total): 80 mg (--/--) Route: oral Frequency: Daily Ordered Rate/Order Duration: -- / -- Timestamps Action Dose Route Other Information Performed 06/29/22822 Documented: 06/29/22823 Given 80 mg oral Performed by: Manda Lake RN Scanned Package: [address]-2 azithromycin (ZITHROMAX) tablet 500 mg [[id number]] Ordering Provider: Russ Milner MD Status: Completed (Past End Date/Time) Ordered On: 06/05/225 Starts/Ends: 06/05/22899 - 06/05/22 0849 Ordered Dose (Remaining/Total): 500 mg (0/1) Route: oral Frequency: Once Ordered Rate/Order Duration: -- / -- Timestamps Action Dose Route Other Information Performed 06/05/22848 Documented: 06/05/22 0850 Given 500 mg oral Performed by: Nona Fernandez RN Scanned Package: [address]-3, [address]-4 barium sulfate (VARIBAR NECTAR) 40 % (w/v) nectar [[id number]] Ordering Provider: Tyra De La Torre MD [...] PUDDING) 40 % (w/v), 30% (w/w) pudding [[id number]] Ordering Provider: Tyra De La Torre MD [...] THIN LIQUID) 81 % (w/w) thin liquid [[id number]] Ordering Provider: Tyra De La Torre MD [...] % (w/v) 29% (w/w) suspension 250 mL [[id number]] Ordering Provider: Tyra De La Torre MD [...] ml given calcitRIOL (ROCALTROL) capsule 0.25 mcg [[id number]] Ordering Provider: Tyra De La Torre MD Status: Dispensed Ordered On: 06/22/22921 Start: 06/22/22 1000 Ordered Dose (Remaining/Total): 0.25 mcg (--/--) Route: oral Frequency: Daily Ordered Rate/Order Duration: -- / -- Timestamps Action Dose Route Other Information Performed 06/29/22822 Documented: 06/29/22823 Given 0.25 mcg oral Performed by: Manda Lake RN Scanned Package: 84679-135-24 calcium acetate(phosphat bind) (PHOSLO) capsule 667 mg [[id number]] Ordering Provider: Fernando Torres MD Status: Dispensed Ordered On: 06/05/22244 Start: 06/05/22799 Ordered Dose (Remaining/Total): 667 mg (--/--) Route: oral Frequency: 4 times daily Ordered Rate/Order Duration: -- / -- Admin Instructions: Take with food Timestamps Action Dose Route Other Information Performed 06/29/22822 Documented: 06/29/22823 Given 667 mg oral Performed by: Manda Lake RN Scanned Package: 46816-409-74 calcium carbonate (TUMS) chewable tablet 500 mg [[id number]] Ordering Provider: Earl Samuels MD Status: Completed (Past End Date/Time) Ordered On: 06/24/222111 Starts/Ends: 06/24/222144 - 06/24/222137 Ordered Dose (Remaining/Total): 200 mg of elemental calcium (0/1) Route: oral Frequency: Once Ordered Rate/Order Duration: -- / -- Timestamps Action Dose Route Other Information Performed 06/24/222137 Documented: 06/24/222137 Given 500 mg oral Performed by: Sasha Subramanian RN Scanned Package: 0688-4296-11 clopidogreL (PLAVIX) tablet 600 mg [[id number]] Ordering Provider: Finn Dupont MD Status: Completed (Past End Date/Time) Ordered On: 06/07/22806 Starts/Ends: 06/07/22844 - 06/07/22956 Ordered Dose (Remaining/Total): 600 mg (0/1) Route: oral Frequency: Once Ordered Rate/Order Duration: -- / -- Timestamps Action Dose Route Other Information Performed 06/07/22956 Documented: 06/07/22957 Given 600 mg oral Performed by: Caitlyn Guzman RN Scanned Package: 24359-626-99, 89909-538-33 clopidogreL (PLAVIX) tablet 75 mg [[id number]] Ordering Provider: Luiz Lewis DO Status: Dispensed Ordered On: 06/22/221923 Start: 06/23/22 0900 Ordered Dose (Remaining/Total): 75 mg (--/--) Route: oral Frequency: Daily Ordered Rate/Order Duration: -- / -- Timestamps Action Dose Route Other Information Performed 06/29/22822 Documented: 06/29/22823 Given 75 mg oral Performed by: Manda Lake RN Scanned Package: 5775-5320-61 Dianeal low calcium-dextrose 1.5 % 2,000 mL dialysis solution [[id number]] Ordering Provider: James Horvath MD Status: Dispensed [...] calcium-dextrose 2.5 % 2,000 mL dialysis solution [[id number]] Ordering Provider: Tom Mendez MD Status: Dispensed [...] calcium-dextrose 2.5 % 5,000 mL dialysis solution [[id number]] Ordering Provider: Yovanny Curtis MD Status: Dispensed [...] calcium-dextrose 2.5 % 5,000 mL dialysis solution [[id number]] Ordering Provider: Yovanny Curtis MD Status: Dispensed [...] calcium-dextrose 2.5 % 5,000 mL dialysis solution [[id number]] Ordering Provider: Tom Mendez MD Status: Dispensed [...] calcium-dextrose 2.5 % 5,000 mL dialysis solution [[id number]] Ordering Provider: Tom Mendez MD Status: Dispensed [...] Duckworth RN diphenhydrAMINE (BENADRYL) capsule 50 mg [[id number]] Ordering Provider: Veronica Tavares MD Status: Completed [...] oral Performed by: Caitlyn Guzman RN 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: 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 Scanned Package: 0723-2638-58 Extraneal 7.5% ULTRABAG 2,000 mL dialysis solution [[id number]] Ordering Provider: Tom Mendez MD Status: Dispensed (Past End Date/Time) Ordered On: 06/26/221308 Starts/Ends: 06/26/221344 - 06/27/221936 Ordered Dose (Remaining/Total): -- (--/--) Route: intraperitoneal Frequency: Continuous Ordered Rate/Order Duration: -- / -- Timestamps Action Dose / Rate / Duration Route Other Information Performed 06/26/221937 Documented: 06/26/221937 New Bag -- intraperitoneal Performed by: Pj Duckworth, LUAN ezetimibe (ZETIA) tablet 10 mg [[id number]] Ordering Provider: Luiz Lewis DO Status: Dispensed Ordered On: 06/22/22 1924 Start: 06/23/22 0900 Ordered Dose (Remaining/Total): 10 mg (--/--) Route: oral Frequency: Daily Ordered Rate/Order Duration: -- / -- Timestamps Action Dose Route Other Information Performed 06/29/22822 Documented: 06/29/22823 Given 10 mg oral Performed by: Manda Lake RN Scanned Package: 67781-583-86 furosemide (LASIX) 10 mg/mL injection 120 mg [[id number]] Ordering Provider: Dimitrios Hensley MD Status: Completed [...] Performed by: Nona Fernandez RN Scanned Package: 3133-6798-28, 0655-0151-51 gentamicin (GARAMYCIN) 0.1 % cream [[id number]] Ordering Provider: James Horvath MD Status: Dispensed [...] Performed by: Tequila Ingram RN Scanned Package: 34677-929-09 heparin 1,000 unit/mL injection 1.5-6.9 mL [[id number]] Ordering Provider: James Horvath MD Status: Completed (Past End Date/Time) Ordered On: 06/20/22 1224 Starts/Ends: 06/20/22 1300 - 06/20/221232 Ordered Dose (Remaining/Total): 1.5-6.9 mL (0/1) Route: intra-catheter Frequency: Once Ordered Rate/Order Duration: -- / -- Admin Instructions: Indwell volume of catheter lumens post treatment. Give volume based upon performance test engineer's recommendation (usual range 1.2 - 3 mL) in each lumen. Timestamps Action Dose Route Other Information Performed 06/20/221232 Documented: 06/20/221232 Given 3 mL intra-catheter Performed by: Margaret Escobar RN Scanned Package: 1554-3140-92 heparin 1,000 unit/mL injection 4,000 Units [[id number]] Ordering Provider: Russ Milner MD Status: Completed [...] Signoff by: Ayleen Doan RN Scanned Package: 8703-1551-13 heparin 5,000 unit/mL injection 5,000 Units [[id number]] Ordering Provider: Robert Henry MD Status: Dispensed Ordered On: 06/22/22 1107 Start: 06/22/22 1400 Ordered Dose (Remaining/Total): 5,000 Units (--/--) Route: subcutaneous Frequency: Every 8 hours scheduled Ordered Rate/Order Duration: -- / -- Timestamps Action Dose Route / Site Other Information Performed 06/29/22500 Documented: 06/29/22 0501 Given 5,000 Units subcutaneous Left Lower Abdomen Performed by: Radha Paul RN Scanned Package: 39017-495-72 heparin in 0.9% sodium chloride 25,000 unit/250 mL infusion (premix) [[id number]] Ordering Provider: Champ Osborne MD PhD Status: [...] age 6 months and up) 0.5 mL [[id number]] Ordering Provider: Champ Osborne MD PhD Status: Completed (Past End Date/Time) Ordered On: 06/04/222316 Starts/Ends: 06/04/222316 - 06/04/222335 Ordered Dose (Remaining/Total): 0.5 mL (0/1) Route: intramuscular Frequency: During hospitalization Ordered Rate/Order Duration: -- / -- Timestamps Action Dose Route / Site Other Information Performed 06/04/222335 Documented: 06/04/222337 Given 0.5 mL intramuscular Right Deltoid Performed by: Kristie Banegas RN Scanned Package: 02365-359-14 insulin lispro (HumaLOG, ADMELOG) 100 unit/mL injection 5 Units [[id number]] Ordering Provider: Lavern Morrison MD Status: Completed (Past End Date/Time) Ordered On: 06/22/22604 Starts/Ends: 06/22/22604 - 06/22/22621 Ordered Dose (Remaining/Total): 5 Units (0/1) Route: subcutaneous Frequency: Once Ordered Rate/Order Duration: -- / -- Timestamps Action Dose Route / Site Other Information Performed 06/22/22621 Documented: 06/22/22621 Given 5 Units subcutaneous Left Lower Abdomen Performed by: Annmarie Ayala RN Scanned Package: 5711-3624-98 insulin lispro (HumaLOG, ADMELOG) 100 unit/mL injection 5 Units [[id number]] Ordering Provider: Indiana Irwin III, MD Status: Completed (Past End Date/Time) Ordered On: 06/24/22 014 Starts/Ends: 06/24/22 0215 - 06/24/22156 Ordered Dose (Remaining/Total): 5 Units (0/1) Route: subcutaneous Frequency: Once Ordered Rate/Order Duration: -- / -- Timestamps Action Dose Route / Site Other Information Performed 06/24/22156 Documented: 06/24/22157 Given 5 Units subcutaneous Right Upper Arm Performed by: Mell Wild RN Scanned Package: 1097-7273-88 insulin lispro (HumaLOG, ADMELOG) 100 unit/mL injection 2 Units [[id number]] Ordering Provider: Carey East MD Status: Completed [...] Performed by: Adelita Self RN Scanned Package: 1180-0320-95 insulin regular (HumuLIN R, NovoLIN R) 100 unit/mL injection 4 Units [[id number]] Ordering Provider: Payam Connor MD Status: Completed (Past End Date/Time) Ordered On: 06/05/22 1013 Starts/Ends: 06/05/22 1045 - 06/05/22 103 Ordered Dose (Remaining/Total): 4 Units (0/1) Route: intravenous Frequency: Once Ordered Rate/Order Duration: -- / -- Timestamps Action Dose Route Other Information Performed 06/05/221031 Documented: 06/05/22 1033 Given 4 Units intravenous Performed by: Nona Fernandez RN Dual Signoff by: iMlagros Hinojosa RN Scanned Package: 9992-5150-31 insulin regular (HumuLIN R, NovoLIN R) 100 unit/mL injection 6 Units [[id number]] Ordering Provider: Toyin Alberto MD Status: Completed (Past End Date/Time) Ordered On: 06/05/221429 Starts/Ends: 06/05/221514 - 06/05/221433 Ordered Dose (Remaining/Total): 6 Units (0/1) Route: intravenous Frequency: Once Ordered Rate/Order Duration: -- / -- Timestamps Action Dose Route Other Information Performed 06/05/221433 Documented: 06/05/221433 Given 6 Units intravenous Performed by: Nona Fernandez RN Dual Signoff by: Jacob Luna RN Scanned Package: 6912-2589-33 insulin regular (HumuLIN R, NovoLIN R) 100 unit/mL injection 5 Units [[id number]] Ordering Provider: Jeffrey Green MD Status: Completed (Past End Date/Time) Ordered On: 06/07/221746 Starts/Ends: 06/07/221829 - 06/07/221756 Ordered Dose (Remaining/Total): 5 Units (0/1) Route: intravenous Frequency: Once Ordered Rate/Order Duration: -- / -- Timestamps Action Dose Route Other Information Performed 06/07/221756 Documented: 06/07/221801 Given 5 Units intravenous Performed by: Figueroa Jack RN Dual Signoff by: Ravi Hollingsworth RN Scanned Package: 3052-2255-68 insulin regular (HumuLIN R, NovoLIN R) 100 unit/mL injection 7 Units [[id number]] Ordering Provider: Meme Castro MD Status: Completed [...] Signoff by: Rachel Masters RN Scanned Package: 4783-9088-63 insulin regular (HumuLIN R, NovoLIN R) 100 unit/mL injection 4 Units [[id number]] Ordering Provider: Jeffrey Green MD Status: Completed [...] Signoff by: Rachel Masters RN Scanned Package: 8841-4164-63 INSULIN SUBCUTANEOUS PUMP (HUMALOG) 100 UNITS/ML INSULIN PUMP INFUSION (HumaLOG) patient supplied pump 0-25 Units [[id number]] Ordering Provider: Dora Delarosa NP Status: Verified [...] ER (IMDUR) extended release tablet 30 mg [[id number]] Ordering Provider: Carey East MD Status: Dispensed [...] Performed by: Manda Lake RN Scanned Package: 4221-5385-08 lidocaine PF (XYLOCAINE) 10 mg/mL (1 %) preservative free injection [[id number]] Ordering Provider: Aric Cordova MD Status: Completed (Past End Date/Time) Ordered On: 06/18/22 123 Frequency: Code/trauma/sedation medication Timestamps Action Dose Route Other Information Performed 06/18/22 1231 Documented: 06/18/22 123 Given 10 mL Injection Performed by: Aric Cordova MD Documented by: Nick Delarosa RN losartan (COZAAR) tablet 12.5 mg [[id number]] Ordering Provider: Carey East MD Status: Dispensed Ordered On: 06/24/22 1718 Start: 06/25/22 09 Ordered Dose (Remaining/Total): 12.5 mg (--/--) Route: oral Frequency: Daily Ordered Rate/Order Duration: -- / -- Timestamps Action Dose Route Other Information Performed 06/29/22821 Documented: 06/29/22823 Given 12.5 mg oral Performed by: Manda Lake RN Scanned Package: 71521-901-17 magnesium sulfate 2 g/50 mL in water (premix) 2 g [[id number]] Ordering Provider: Jeffrey Green MD Status: Completed (Past End Date/Time) Ordered On: 06/18/221837 Starts/Ends: 06/18/221914 - 06/18/222024 Ordered Dose (Remaining/Total): 2 g (0/1) Route: intravenous Frequency: Once Ordered Rate/Order Duration: -- / 60 Minutes Timestamps Action Dose / Duration Route Other Information Performed 06/18/221924 Documented: 06/18/221924 New Bag 2 g 60 Minutes intravenous Performed by: Carlos Esparza RN Scanned Package: 2868-2616-92 metoprolol tartrate (LOPRESSOR) immediate release tablet 25 mg [[id number]] Ordering Provider: Carey East MD Status: Dispensed Ordered On: 06/26/22 1551 Start: 06/27/22 0900 Ordered Dose (Remaining/Total): 25 mg (--/--) Route: oral Frequency: 2 times daily Ordered Rate/Order Duration: -- / -- Timestamps Action Dose Route Other Information Performed 06/29/22821 Documented: 06/29/22823 Given 25 mg oral Performed by: Manda Lake RN Scanned Package: 28617-419-20 midazolam (VERSED) 1 mg/mL injection 2 mg [[id number]] Ordering Provider: Lavern Morrison MD Status: Completed (Past End Date/Time) Ordered On: 06/15/221756 Starts/Ends: 06/15/221829 - 06/15/221804 Ordered Dose (Remaining/Total): 2 mg (0/1) Route: intravenous Frequency: Once Ordered Rate/Order Duration: -- / -- Timestamps Action Dose Route Other Information Performed 06/15/221804 Documented: 06/15/221805 Given 2 mg intravenous Performed by: Ravi Hollingsworth RN Scanned Package: 3544-8908-38 midazolam (VERSED) bolus from bag 2 mg [[id number]] Ordering Provider: Jeffrey Green MD Status: Completed (Past End Date/Time) Ordered On: 06/16/221719 Starts/Ends: 06/16/22 1800 - 06/16/221744 Ordered Dose (Remaining/Total): 2 mg (0/1) Route: intravenous Frequency: Once Ordered Rate/Order Duration: -- / -- Timestamps Action Dose Route Other Information Performed 06/16/221744 Documented: 06/16/221756 Bolus from Bag 2 mg intravenous Performed by: Ravi Hollingsworth RN pantoprazole DR (PROTONIX) extended release tablet 40 mg [[id number]] Ordering Provider: Carey East MD Status: Dispensed Ordered On: 06/25/221156 Start: 06/26/22 09 Ordered Dose (Remaining/Total): 40 mg (--/--) Route: oral Frequency: Daily Ordered Rate/Order Duration: -- / -- Admin Instructions: Do not crush, chew, cut, dissolve, open or otherwise manipulate tablet/capsule. Timestamps Action Dose Route Other Information Performed 06/29/22821 Documented: 06/29/22823 Given 40 mg oral Performed by: Manda Lake RN Scanned Package: 7125-8517-74 perflutren protein-a (OPTISON) 0.22 mg/mL injection - ADS Override Pull [[id number]] Status: Completed (Past End Date/Time) Ordered On: [...] in sodium chloride 0.9% 8 mL syringe [[id number]] Ordering Provider: Meme Castro MD Status: Completed [...] CLASSIC) 1.4-0.6 % ophthalmic solution 1 drop [[id number]] Ordering Provider: Jeffrey Green MD Status: Dispensed Ordered On: 06/16/221911 Start: 06/16/222099 Ordered Dose (Remaining/Total): 1 drop (--/--) Route: each eye Frequency: 4 times daily Ordered Rate/Order Duration: -- / -- Timestamps Action Dose Route Other Information Performed 06/29/22821 Documented: 06/29/22823 Given 1 drop each eye Performed by: Manda Lake RN Scanned Package: 7884-7162-63 potassium chloride (KLOR-CON) packet 40 mEq [[id number]] Ordering Provider: Meme Castro MD Status: Completed [...] Performed by: Rachel Masters RN Scanned Package: [address]-0, [address]-7 potassium chloride 40 mEq/100 mL in sterile water (premix) 40 mEq [[id number]] Ordering Provider: Ashley Baer MD Status: Completed [...] mL in sterile water (premix) 40 mEq [[id number]] Ordering Provider: Meme Castro MD Status: Dispensed [...] Performed by: Rachel Masters RN Scanned Package: 7085-9219-98 potassium chloride ER (KLOR-CON) extended release tablet 30 mEq [[id number]] Ordering Provider: Tyra De La Torre MD [...] Performed by: Carlos Esparza RN Scanned Package: 71951-868-83, 74294-532-29, 46895-125-57 potassium chloride ER (KLOR-CON) extended release tablet 20 mEq [[id number]] Ordering Provider: Carey East MD Status: Completed [...] Performed by: Manda Lake RN Scanned Package: 9948-9311-22, 9610-3420-75 predniSONE (DELTASONE) tablet 50 mg [[id number]] Ordering Provider: Veronica Tavares MD Status: Completed (Past End Date/Time) Ordered On: 06/06/22 1344 Starts/Ends: 06/07/22 0000 - 06/07/22 1018 Ordered Dose (Remaining/Total): 50 mg (0/3) Route: oral Frequency: Every 6 hours Ordered Rate/Order Duration: -- / -- Admin Instructions: Call Radiology to schedule procedure after the 1st dose is administered. CT Bus Van Driver [place]: 7-[address] Bus [place] [address] [place]: 7-5 After Timestamps Action Dose Route Other Information Performed 06/07/22 1018 Documented: 06/07/22 1019 Given 50 mg oral Performed by: Caitlyn uGzman RN Comments: 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 Scanned Package: 8535-3347-60 ramelteon (ROZEREM) tablet 8 mg [[id number]] Ordering Provider: Marcelina Pickard NP Status: Dispensed Ordered On: 06/08/22918 Start: 06/08/22918 Ordered Dose (Remaining/Total): 8 mg (--/--) Route: feeding tube Frequency: Nightly PRN Ordered Rate/Order Duration: -- / -- Timestamps Action Dose Route Other Information Performed 06/08/222040 Documented: 06/08/222040 Given 8 mg feeding tube Performed by: Rachel Masters RN Scanned Package: [id number] sodium bicarbonate 8.4 % (1 mEq/mL) injection 50 mEq [[id number]] Ordering Provider: Champ Osborne MD PhD Status: [...] RN sodium chloride 0.9% IVPB 0-250 mL [[id number]] Ordering Provider: Meme Castro MD Status: Completed [...] Performed by: Carlos Esparza RN Scanned Package: [id number] sodium chloride 0.9% IVPB 0-250 mL [[id number]] Ordering Provider: Robert Henry MD Status: Completed [...] Performed by: Margaret Escobar RN Scanned Package: [id number] Rex Scale Flowsheet Row Most Recent Value [...] 06/23/2022129 Throat Intact ............filed at 06/23/2022129 Tongue [place], Moist ............filed at 06/23/2022129 Voice Deep ............filed at 06/22/2022 08 Mucous Membrane(s) Moist, [place] ............filed at 06/22/2022 08 Teeth and Gums [...] last 72 hours COVID-19 Coronavirus RNA Nasopharyngeal [[id number]] Resulted: 06/28/22 1703, Result status: Final result Ordering provider: Frank Bowers MD 06/28/22 1517 Resulting lab: [facility] Narrative: Is the patient experiencing any symptoms consistent with COVID (eg. Fever, cough, shortness of breath)?->No What is the reason for testing?->Placement in post-acute care setting (Rapid) Interpretive data: Synonyms for this test include: PCR and NAAT . This test is performed using the [employer] Xpert Xpress plus assay. This is a [...] . This test is performed using the [employer] Xpert Xpress plus assay. This is a [...] COVID-19 RNA Negative Negative -- -- eGFR [[id number]] (Abnormal) Resulted: 06/27/22457, Result status: Final result Ordering provider: Carey East MD 06/27/22350 Resulting lab: [facility] Specimen Information Type Source Collected On Blood -- 06/27/22350 Components Component Value Reference Range Flag Lab eGFR 6 90 - 130 mL/min/1.73 m2 L Low -- Basic metabolic panel [[id number]] (Abnormal) Resulted: 06/27/22457, Result status: Final result Ordering provider: Carey East MD 06/26/22 1800 Resulting lab: [facility] Specimen Information Type Source Collected [...] mg/dL L Low -- CBC without differential [[id number]] (Abnormal) Resulted: 06/27/22434, Result status: Final result Ordering provider: Carey East MD 06/26/22 1800 Resulting lab: [facility] Specimen Information Type Source Collected [...] results found ECG/EMG Results ECG 12 lead [[id number]] Resulted: 06/23/22 1628, Result status: Final result Ordering provider: Carey East MD 06/23/22 1330 Resulted by: Hudson Sal Jr., MD PhD Accession number: [id number] Resulting lab: [facility] [employer] Components Component Value Reference Range Flag Lab Ventricular Rate EKG/Min 100 BPM -- -- Atrial Rate 100 BPM -- -- AR-Interval (MSEC) 182 ms -- -- QRS-Interval (MSEC) 106 ms -- -- QT-Interval (MSEC) 380 ms -- -- QTc 490 ms -- -- R [place] -47 degrees -- -- T [place] 105 degrees -- -- Diagnosis -- -- [...] on 06/23/2022 4:28:23 PM ECG 12 lead [[id number]] Resulted: 06/23/22 1444, Result status: Preliminary result Ordering provider: Carey East MD 06/23/22 1330 Resulted by: Hudson Sal Jr., MD PhD Accession number: [id number] Resulting lab: [facility] [employer] Component Value Reference Range Flag Lab Ventricular Rate EKG/Min 100 BPM -- -- Atrial Rate 100 BPM -- -- AR-Interval (MSEC) 182 ms -- -- QRS-Interval (MSEC) 106 ms -- -- QT-Interval (MSEC) 380 ms -- -- QTc 490 ms -- -- R [place] -47 degrees -- -- T [place] 105 degrees -- -- Diagnosis -- -- [...] depressed in Lateral leads ECG 12 lead [[id number]] Resulted: 06/22/22 1055, Result status: Final result Ordering provider: Fernando Torres MD 06/19/22 1255 Resulted by: Hudson Sal Jr., MD PhD Accession number: [id number] Resulting lab: [facility] [employer] Component Value Reference Range Flag Lab Ventricular Rate EKG/Min 126 BPM -- -- Atrial Rate 63 BPM -- -- QRS-Interval (MSEC) 106 ms -- -- QT-Interval (MSEC) 360 ms -- -- QTc 521 ms -- -- R [place] -53 degrees -- -- T [place] 125 degrees -- -- Diagnosis -- -- [...] on 06/22/2022 10:55:43 AM ECG 12 lead [[id number]] Resulted: 06/21/22 1328, Result status: Final result Ordering provider: Fernando Torres MD 06/18/22 1831 Resulted by: Kenn Billingsley MD Accession number: [id number] Resulting lab: [facility] [employer] Component Value Reference Range Flag Lab Ventricular Rate EKG/Min 133 BPM -- -- Atrial Rate 147 BPM -- -- QRS-Interval (MSEC) 102 ms -- -- QT-Interval (MSEC) 332 ms -- -- QTc 494 ms -- -- R [place] -43 degrees -- -- T [place] 123 degrees -- -- Diagnosis -- -- [...] on 06/21/2022 1:28:53 PM ECG 12 lead [[id number]] Resulted: 06/08/22 0942, Result status: Final result Ordering provider: Jeffrey Green MD 06/07/22 1647 Resulted by: Jess Bustos MD Accession number: [id number] Resulting lab: [facility] [employer] Component Value Reference Range Flag Lab Ventricular Rate EKG/Min 51 BPM -- -- Atrial Rate 51 BPM -- -- AR-Interval (MSEC) 212 ms -- -- QRS-Interval (MSEC) 130 ms -- -- QT-Interval (MSEC) 580 ms -- -- QTc 534 ms -- -- P [place] 69 degrees -- -- R [place] -38 degrees -- -- T [place] 95 degrees -- -- Diagnosis -- -- [...] on 06/08/2022 9:42:26 AM ECG 12 lead [[id number]] Resulted: 06/07/22 0830, Result status: Final result Ordering provider: Toyin Alberto MD 06/05/221447 Resulted by: Jess Bustos MD Accession number: [id number] Resulting lab: [facility] [employer] Component Value Reference Range Flag Lab Ventricular Rate EKG/Min 73 BPM -- -- Atrial Rate 73 BPM -- -- AR-Interval (MSEC) 184 ms -- -- QRS-Interval (MSEC) 106 ms -- -- QT-Interval (MSEC) 442 ms -- -- QTc 486 ms -- -- P [place] 49 degrees -- -- R [place] -33 degrees -- -- T [place] 87 degrees -- -- Diagnosis -- -- -- -- Result: Normal sinus rhythm Left axis deviation QS in V1 and V2, a nonspecific finding with multiple causes, including lead misplacement or septal infarction in 20% Abnormal ECG Confirmed by JESS BUSTOS M.D ([id number]) on 06/07/2022 8:30:06 AM ECG 12 lead [[id number]] Resulted: 06/07/22 06, Result status: Preliminary result Ordering provider: Toyin Alberto MD 06/05/221447 Resulted by: Jess Bustos MD Accession number: [id number] Resulting lab: [facility] [employer] Component Value Reference Range Flag Lab Ventricular Rate EKG/Min 73 BPM -- -- Atrial Rate 73 BPM -- -- AR-Interval (MSEC) 184 ms -- -- QRS-Interval (MSEC) 106 ms -- -- QT-Interval (MSEC) 442 ms -- -- QTc 486 ms -- -- P [place] 49 degrees -- -- R [place] -33 degrees -- -- T [place] 87 degrees -- -- Diagnosis -- -- -- -- Result: Normal sinus rhythm Possible Left atrial enlargement Left axis deviation Septal infarct , age undetermined Abnormal ECG ECG 12 lead [[id number]] Resulted: 06/06/222156, Result status: Final result Ordering provider: Russ Milner MD 06/04/222154 Resulted by: Kenn Billingsley MD Accession number: [id number] Resulting lab: [facility] [employer] Component Value Reference Range Flag Lab Ventricular Rate EKG/Min 47 BPM -- -- Atrial Rate 47 BPM -- -- AR-Interval (MSEC) 228 ms -- -- QRS-Interval (MSEC) 116 ms -- -- QT-Interval (MSEC) 532 ms -- -- QTc 470 ms -- -- P [place] 39 degrees -- -- R [place] -33 degrees -- -- T [place] 105 degrees -- -- Diagnosis -- -- [...] on 06/06/2022 9:57:10 PM ECG 12 lead [[id number]] Resulted: 06/06/22943, Result status: Preliminary result Ordering provider: Russ Milner MD 06/04/222154 Resulted by: Kenn Billingsley MD Accession number: [id number] Resulting lab: [facility] [employer] Component Value Reference Range Flag Lab Ventricular Rate EKG/Min 47 BPM -- -- Atrial Rate 47 BPM -- -- AR-Interval (MSEC) 228 ms -- -- QRS-Interval (MSEC) 116 ms -- -- QT-Interval (MSEC) 532 ms -- -- QTc 470 ms -- -- P [place] 39 degrees -- -- R [place] -33 degrees -- -- T [place] 105 degrees -- -- Diagnosis -- -- [...] are no longer Present ECG 12 lead [[id number]] Resulted: 06/06/2232, Result status: Preliminary result Ordering provider: Toyin Alberto MD 06/05/22 1448 Resulted by: Jess Bustos MD Accession number: [id number] Resulting lab: [facility] [employer] Component Value Reference Range Flag Lab Ventricular Rate EKG/Min 73 BPM -- -- Atrial Rate 73 BPM -- -- AR-Interval (MSEC) 184 ms -- -- QRS-Interval (MSEC) 106 ms -- -- QT-Interval (MSEC) 442 ms -- -- QTc 486 ms -- -- P [place] 49 degrees -- -- R [place] -33 degrees -- -- T [place] 87 degrees -- -- Diagnosis -- -- -- -- Result: Normal sinus rhythm Possible Left atrial enlargement Left axis deviation Septal infarct , age undetermined Abnormal ECG ECG 12 lead [[id number]] Resulted: 06/06/22 0909, Result status: Preliminary result Ordering provider: Russ Milner MD 06/04/222154 Resulted by: Kenn Billingsley MD Accession number: [id number] Resulting lab: [facility] [employer] Component Value Reference Range Flag Lab Ventricular Rate EKG/Min 47 BPM -- -- Atrial Rate 47 BPM -- -- AR-Interval (MSEC) 228 ms -- -- QRS-Interval (MSEC) 116 ms -- -- QT-Interval (MSEC) 532 ms -- -- QTc 470 ms -- -- P [place] 39 degrees -- -- R [place] -33 degrees -- -- T [place] 105 degrees -- -- Diagnosis -- -- [...] Director Address Valid Date Range 24 - [facility] Unknown 03/28/170 - Present Progress Notes - Encounter Notes Notes from 06/27/22 through 06/29/22 Progress Notes by So Lawrence OT at 06/27/2022 9:37 AM Version 1 of 1 Author: Debeer, So M., OT Specialty: Occupational Therapy Author Type: Occupational Therapist Filed: 06/27/2022 11:01 AM Date of Service: 06/27/2022 9:37 AM Status: Signed Power Tong Operator: So Lawrence OT (Occupational Therapist) Occupational Therapy [...] not assigned to this patient, please call [phone]. 06/27/22 0937 General Session Type Treatment OT [...] of Service: 06/27/2022 4:57 PM Status: Signed Power Tong Operator: Carey East MD (Physician) Daily Progress Note Division of Hospital Medicine Name: Adelia Garvin Jr. Today: June 27, 2022 : 1970 Age: 51 y.o. male Admit: 06/04/2022 Bed: [id number] Subjective Chief complaint: CAD s/p PCI, T1DM, [...] 06/27/2022 0745 Gross per 24 hour Intake 01910 ml Output 47601 ml Net -1949 ml Physical Exam Constitutional: [...] transferred to the floor, improving. Atrial fibrillation ([facility]) ([facility]) Assessment & Plan Converted to [...] HFrEF (heart failure with reduced ejection fraction) ([facility]) Assessment & Plan C/b cardiogenic shock requiring impella in the setting of cath and AHRF 2/2 pulmonary edema, now resolved. TTE demonstrating recovered EF 65% with grade I diastolic dysfunction. - metop as above - continue low dose losartan 12.5mg daily, ok per nephro - volume management per PD ESRD (end stage renal disease) ([facility]) ([facility]) Assessment & Plan - Renal consulted, s/p CRRT in the ICU now back on PD. - Continue vitamins for renal bone mineral disease - continue phoslo Type 1 diabetes mellitus ([facility]) Assessment & Plan A1c well [...] PD * NSTEMI (non-ST elevated myocardial infarction) ([facility]) ([facility]) Assessment & Plan With recurrent [...] of Service: 06/27/2022 3:50 PM Status: Signed Power Tong Operator: Arleen Andre MD (Physician) ASSESSMENT AND RECOMMENDATIONS ESRD: He is doing well on the current PD regimen. Ultrafilters approximately 4313-2507 ml/day. Continue current regimen Hypokalemia: Start Kcl [...] (mL): 785 mL Fill Volume In (mL): 45155 mL Effluent Volume Out (mL): 22273 ml Balance This Exchange (mL): 1944 mL [...] Weight: Height: PD CATHETER: PD Catheter Site: [facility] PD Site Assessment: other findings scaly skin around the site Other findings: pleasant, conversing appropriately. Mild peripheral edema I/O last 2 completed shifts: In: 99922 [P.O.:440; Other:97779] Out: 30233 [Urine:300; Other:23618] I have reviewed current medications and the [...] FERRITIN 2,062 (H) 06/07/2022 Arleen Andre MD hot press operator Division of Nephrology Progress Notes by Frank Bowers MD at 06/28/2022 3:30 PM Version 1 of Author: Frank Bowers MD Specialty: Internal Medicine Author Type: Physician Filed: 06/28/2022 3:30 PM Date of Service: 06/28/2022 3:30 PM Status: Signed Power Tong Operator: Frank Bowers MD (Physician) Daily Progress Note Division of Hospital Medicine Name: Adelia Garvin Jr. Today: June 28, 2022 : 1970 Age: 51 y.o. male Admit: 06/04/2022 Bed: [id number] Subjective Chief complaint: NSTEMI Interval History: Pt [...] 06/28/2022 1300 Gross per 24 hour Intake 44364 ml Output 19515 ml Net -851 ml Physical Exam Constitutional: [...] * NSTEMI (non-ST elevated myocardial infarction) (CMS/HCC) ([facility]) Assessment & Plan With recurrent [...] been accepted ESRD (end stage renal disease) ([facility]) ([facility]) Assessment & Plan - Renal consulted, s/p CRRT in the ICU now back on PD. Tolerated well and nephrology following - Trialysis catheter removed - Continue vitamins for renal bone mineral disease. Type 1 diabetes mellitus ([facility]) Assessment & Plan A1c well [...] increase NPH 45u before PD Atrial fibrillation ([facility]) ([facility]) Assessment & Plan Converted to [...] HFrEF (heart failure with reduced ejection fraction) ([facility]) Assessment & Plan C/b cardiogenic [...] and trend Hb. Acute hypoxemic respiratory failure ([facility]) Assessment & Plan Secondary to ACS and flash pulmonary edema, since resolved and extubated on 06/19. Patient passed barium swallow on 06/21. Progress Notes by Frank Bowers MD at 06/29/2022 10:12 AM Version 1 of 1 Author: Frank Bowers MD Specialty: Internal Medicine Author Type: Physician Filed: 06/29/2022 10:12 AM Date of Service: 06/29/2022 10:12 AM Status: Signed Power Tong Operator: Frank Bowers MD (Physician) Daily Progress Note Division of Hospital Medicine Name: Adelia Garvin Jr. Today: June 29, 2022 : 1970 Age: 51 y.o. male Admit: 06/04/2022 Bed: [id number] Subjective Chief complaint: NSTEMI Interval History: Pt [...] 06/29/2022 0815 Gross per 24 hour Intake 77775 ml Output 85851 ml Net -664 ml Physical Exam Constitutional: [...] Resolved. * NSTEMI (non-ST elevated myocardial infarction) ([facility]) ([facility]) Assessment & Plan With recurrent [...] today ESRD (end stage renal disease) (CMS/HCC) ([facility]) Assessment & Plan - Renal [...] start of peritoneal dialysis session Atrial fibrillation ([facility]) ([facility]) Assessment & Plan Converted to [...] HFrEF (heart failure with reduced ejection fraction) ([facility]) Assessment & Plan C/b cardiogenic [...] of Service: 06/29/2022 10:13 AM Status: Signed Power Tong Operator: Frank Bowers MD (Physician) Inpatient Discharge Summary BRIEF OVERVIEW Admitting Provider: Catherine Adams MD Discharge Provider: Frank Bowers MD Primary Care Physician at Discharge: Aditya Castro MD [phone] Admission Date: 06/04/2022 Discharge Date: 06/29/2022 Admission Location: [facility] Problems/Diagnoses: Principal Problem: NSTEMI (non-ST elevated myocardial infarction) ([facility]) ([facility]) Active Problems: Cardiogenic shock ([facility]) Type 1 diabetes mellitus ([facility]) ESRD (end stage renal disease) ([facility]) ([facility]) Acute hypoxemic respiratory failure ([facility]) Anemia Acute on chronic HFrEF (heart failure with reduced ejection fraction) ([facility]) Atrial fibrillation ([facility]) ([facility]) Resolved Problems: No resolved hospital problems. DETAILS OF HOSPITAL STAY Presenting Problem/History of Present Illness: As per Admission H&P AC), HTN, CAD s/p stent 04/06 and 3 stent 12/07, T1DM (insulin pump at home), ESRD on PD, HLD, GERD, hyperparathyroidism, DDD, OA, gout, BEN on CPAP initially presented to [facility] for n/v andchest pain, transferred to [facility] for LHC/PCI, now presenting to CCU s/p complex PCI with impella and intubated. At the OSH he presented with 3d generalized weakness, chills, ROONEY, n/v, chest pain relieved by sublingual ntg. His labs were notable for trop 1.0-->1.09-->0.729, BNP 70536. He had a CT CAP showing cholelithiasis [...] circumflex as optimal treatment, prompting transfer to [place]. He arrived at [place] 06/05. EKG showed sinus bradycardia, 1st deg [...] 06/22. * NSTEMI (non-ST elevated myocardial infarction) ([facility]) ([facility]) With interventions described above. Post-transfer [...] on discharge given pressure tolerance. Atrial fibrillation ([facility]) ([facility]) He was in atrial fibrillation [...] HFrEF (heart failure with reduced ejection fraction) ([facility]) He developed cardiogenic shock requiring [...] to metoprolol. ESRD (end stage renal disease) ([facility]) ([facility]) Renal consulted on admission with history of ESRD on PD. While in ICU, temporary dialysis catheter was placed to facilitate CRRT for volume removal. Upon transfer to the floor, PD was continued and tolerated well. He was continued on his home vitamins for renal bone mineral disease and phoslo. Trialysis removed 06/25. Type 1 diabetes mellitus ([facility]) Prior to admission, his A1c [...] REMOVE PERC ARTERIAL VAD (IMPELLA), DIFFERENT SESSION 81430 Other Procedures: Pertinent Test Results: See hospital [...] Influenza, Quadrivalent, Split, Preservative Free, Intramuscular 06/04/22 [employer] ([employer] SARS-CoV-2 Vaccination 11/04/20 Moderna SARS-CoV-2 Vaccination (12+ YRS) 09/21/21 Generated by [id number] at 06/29/22 11:31 AM Page [employer] * Assessment & Plan Note - Frank Bowers MD - 06/29/2022 10:12 AM [employer] Associated Problem(s): Atrial fibrillation (CMS/HCC) (HCC) Converted to NSR overnight on 06/24. CHADsVASc of 4 not on anticoagulation prior to admission. - cardiology consulted - recommended ongoing rate control - holding off on a/c with high risk for bleeding while on DAPT - reduced metop to 25mg BID in the setting of hypotension, HR 70s NSR [employer] * Assessment & Plan Note - Frank Bowers MD - 06/29/2022 10:12 AM [employer] Associated Problem(s): Acute on chronic HFrEF (heart failure with reduced ejection fraction) (HCC) C/b cardiogenic shock requiring impella in the setting of cath and AHRF 2/2 pulmonary edema, now resolved. TTE demonstrating recovered EF 65% with grade I diastolic dysfunction. - metop as above - continue low dose losartan 12.5mg daily, ok per nephro. Tolerating well - volume management per PD [employer] * Assessment & Plan Note - Frank Bowers MD - 06/29/2022 10:12 AM [employer] Associated Problem(s): Anemia Stable, likely 2/2 anemia from ESRD, no evidence of bleeding. Underwent CT c/a/p without internal hematoma. - Monitor and trend Hb. [employer] * Assessment & Plan Note - Frank Bowers MD - 06/29/2022 10:12 AM [employer] Associated Problem(s): Acute hypoxemic respiratory failure (HCC) Secondary to ACS and flash pulmonary edema, since resolved and extubated on 06/19. Patient passed barium swallow on 06/21. [employer] * Assessment & Plan Note - Frank Bowers MD - 06/29/2022 10:12 AM [employer] Associated Problem(s): ESRD (end stage renal disease) (CMS/HCC) (HCC) - Renal consulted, s/p CRRT in the ICU now back on PD. Tolerated well and nephrology following - Trialysis catheter removed - Continue vitamins for renal bone mineral disease. [employer] * Assessment & Plan Note - Frank Bowers MD - 06/29/2022 10:11 AM [employer] Associated Problem(s): Type 1 diabetes mellitus (HCC) [...] units with start of peritoneal dialysis session [employer] * Assessment & Plan Note - Frank Bowers MD - 06/29/2022 10:11 AM [employer] Associated Problem(s): Cardiogenic shock (HCC) Secondary to NSTEMI, s/p Impella since removed on 06/10. Resolved. [employer] * Assessment & Plan Note - Frank Bowers MD - 06/29/2022 10:11 AM [employer] Associated Problem(s): NSTEMI (non-ST elevated myocardial infarction) [...] Pt overall improving, DC to rehab today [employer] * Subjective & Objective - Frank Bowers MD - 06/29/2022 10:10 AM [employer] Daily Progress Note Division of Hospital Medicine Name: Adelia Garvin Jr. Today: June 29, 2022 : 1970 Age: 51 y.o. male Admit: 06/04/2022 Bed: [id number] Subjective Chief complaint: NSTEMI Interval History: Pt [...] 06/29/2022 0815 Gross per 24 hour Intake 31060 ml Output 44642 ml Net -664 ml Physical Exam Constitutional: [...] controlled, some low 200 Negative covid test. [employer] * Plan of Care - [place] [...] to chair, discharge to inpatient rehab today [facility] * Summary of Treatment Recommendations Non-Billable - [...] yearly or sooner as indicated by your non destructive evaluation specialist Pending results for primary service or primary care physician to follow up on: None at time of discharge Follow Up Plan: Follow up with endocrinology near his home 1-2 weeks after discharge to reassess glycemic management and adjust insulin pump settings as needed. [employer] * Plan of Care - Gucci Macedo RRT - 06/29/2022 1:28 AM CST BEN Continue on NPPV [employer] * Consults, Subsequent - James Horvath MD - 06/28/2022 5:36 PM [employer] NEPHROLOGY CONSULT SUBSEQUENT VISIT INTERVAL HISTORY: NAEO. [...] 06/27/22699 - 06/28/2265806/28/22699 - 06/29/22 0659 Shift 7731-0840 9431-2556 24 Hour Total 1899-0659 24 Hour Total INTAKE P.O. 400 400 Other 75636 04873 Shift Total(mL/kg) 74372(101.4) 23841(101.4) 400(3.3) 400(3.3) OUTPUT Urine(mL/kg/hr) 200(0.1) 200(0.1) 150 150 Other 44190 51880 Shift Total(mL/kg) 200(1.7) 43279(110.5) 49947(112.2) 150(1.2) 150(1.2) NET -200 -1101 -1301 250 [...] Fellow PGY-4 Consult 1 Service Contact (phone): [phone] After hours and weekends: please page [phone] Cosigned by Arleen Anrde MD at 06/28/2022 8:35 PM [employer] [employer] Associated attestation - Arleen Andre MD - 06/28/2022 8:35 PM [employer] I saw and examined the patient on 06/28/2022. I have discussed the patient's management with the nephrology fellow/resident. I agree with the findings, assessment and plan of care as documented in thefellow's/resident's note. Additional history, findings, assessment and recommendations, if any, are outlined below. Arleen Andre MD hot press operator Division of Nephrology * Subjective & Objective - Frank Bowers MD - 06/28/2022 3:21 PM [employer] Daily Progress Note Division of Hospital Medicine Name: Adelia Garvin Jr. Today: June 28, 2022 : 1970 Age: 51 y.o. male Admit: 06/04/2022 Bed: [id number] Subjective Chief complaint: NSTEMI Interval History: Pt [...] 06/28/2022 1300 Gross per 24 hour Intake 01305 ml Output 30938 ml Net -851 ml Physical Exam Constitutional: [...] this written report and agrees with it. [employer] * Plan of Care - Elsie Gonzalez RN - 06/28/2022 3:16 PM CST Government Professor noted patient has been recommended for inpatient rehab by PT/OT. photo lab manager met withthe patient at bedside to discuss recommendations by therapy and to work on a potential discharge disposition plan. Government Professor provided education to patient on inpt rehab facilities and the rehabilitation process.Patient reported he was interested in short term inpatient rehab. photo lab manager explained to the patient the choices were limited due to his PD. Per patient request, CM sent referrals to inpatient rehab facilities near [facility] in [place] unable to accept PD at this time. CM sent referrals to [facility]. [facility] is able to accept PD patient and they have beds available tomorrow. Per patient choice will transfer to [facility] tomorrow. [facility] intake coord and care team notified of patient choice. IST ORGANIC * Consults, Subsequent - Dora Delarosa NP - 06/28/2022 1:30 PM CST Endocrinology & Diabetes Progress Note Patient: Adelia Garvin Jr., 51 y.o. male (: 1970) Room: [place] [address] [address] ( ) LOS: 24 Adelia Garvin Jr. [...] agitation. 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, with assistant terminal manager use of insulin, complicated by ESRD on PD, CAD s/p PCI, CHF - HbA1c 7.4% - Uses Omnipod and Dexcom G6 at home, not currently on this- doesn't have the supplies -On significantly higher basal rates on pump at night due to peritoneal dialysis -home settings: Basal rate 0330 >>1.7 0800 >> 0.8 2000 >> 5.8 ICR1:6.5 ISF1:25 [id number] TIA 4 Over the previous 24 hours, [...] recommend decreasing the basal insulin dose from 2913-3066 today. We will continue to intensely monitor [...] ## Discharge Planning - Follow-up with home mechanical facilities technician -- Dora Delarosa NP Endocrinology, Metabolism, & Lipid Research Contact Info: New Consults: [phone]) General Endocrine (Non-Diabetes): [phone] (Check 'Treatment Team' assignment for Diabetes 1 vs 2 vs 3) Diabetes 1: Diabetes Fellow: [phone] Diabetes 2: Dora Delarosa NP: [phone] Diabetes 3: See Treatment Team Provider (or call Dora Delarosa, above) Diabetes After-Hours & Weekends: Diabetes Fellow IST ORGANIC * Plan of Care - Elsie Gonzalez RN - 06/28/2022 1:24 PM CST CM sent 5 more referrals in [facility] for inpt rehab- awaiting response from facility that can accept PD patients IST ORGANIC * Plan of Care - Manda [place] [...] up to chair, monitor tele and vitals IST ORGANIC * Plan of Care - Sasha Leonard [...] on-going diet recs, safe swallow strategies, and HEAD TRANSFER CLERK POC, they verbalized understanding and agreement. ST to s/o. IST ORGANIC * Hospital Course - Carey East MD - 06/27/2022 9:31 PM CHEMIST ORGANIC Adelia Garvin Jr. is 51 y.o. male [...] 06/22. * NSTEMI (non-ST elevated myocardial infarction) ([facility]) ([facility]) With interventions described above. Post-transfer [...] DAPT and atorvastatin as well. Atrial fibrillation ([facility]) ([facility]) He was in atrial fibrillation [...] HFrEF (heart failure with reduced ejection fraction) ([facility]) He developed cardiogenic shock requiring [...] to metoprolol. ESRD (end stage renal disease) ([facility]) ([facility]) Renal consulted on admission with history of ESRD on PD. While in ICU, temporary dialysis catheter was placed to facilitate CRRT for volume removal. Upon transfer to the floor, PD was continued and tolerated well. He was continued on his home vitamins for renal bone mineral disease and phoslo. Trialysis removed 06/25. Type 1 diabetes mellitus ([facility]) Prior to admission, his A1c [...] barium swallow on 06/21. Remained on RA. IST ORGANIC IST ORGANIC * ECIN Note - Elsie Gonzalez RN [...] 06/27/22 0700 - 06/28/22 0659 Total Total 8538-0530 7912-1993 8821-0122 Total 6023-1663 1166-3473 8389-5726 Total Intake (ml) 33099 08559 340 100 81047 27845 -- -- -- -- Output (ml) 66874 01964 300 -- 32792 72995 200 -- -- 200 Net (ml) -2404 [...] -- SpO2 -- 92 % 96 % IST ORGANIC * Consults, Subsequent - Dora Delarosa NP - 06/27/2022 1:13 PM CST Endocrinology & Diabetes Progress Note Patient: Adelia Garvin Jr., 51 y.o. male (: 1970) Room: [place] [address] ( ) LOS: 23 Adelia Garvin Jr. [...] agitation. 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, with fdc use of insulin, complicated by ESRD on PD, CAD s/p PCI, CHF - HbA1c 7.4% - Uses Omnipod and Dexcom G6 at home, not currently on this- doesn't have the supplies -On significantly higher basal rates on pump at night due to peritoneal dialysis -home settings: Basal rate 0330 >>1.7 0800 >> 0.8 2000 >> 5.8 ICR1:6.5 ISF1:25 [id number] TIA 4 Over the previous 24 hours, [...] ## Discharge Planning - Follow-up with home mechanical facilities technician -- Dora Delarosa NP Endocrinology, Metabolism, & Lipid Research Contact Info: New Consults: [phone]) General Endocrine (Non-Diabetes): [phone] (Check 'Treatment Team' assignment for Diabetes 1 vs 2 vs 3) Diabetes 1: Diabetes Fellow: [phone] Diabetes 2: Dora Delarosa NP: [phone] Diabetes 3: See Treatment Team Provider (or call Dora Delarosa, above) Diabetes After-Hours & Weekends: Diabetes Fellow IST ORGANIC * Plan of Care - Adelita Self RN - 06/26/2022 3:00 PM CST Problem: Lack of Knowledge: Goal: Knowledge of disease or condition will improve Outcome: Progressing Goals: Clinical Goals for the Shift: up to chair Summary: Up to chair for about 2 hours. IST ORGANIC * Plan of Care - Gucci Macedo, POKER MANAGER - 06/26/2022 1:28 AM CDT BEN Continue [...] 0659 06/25/22 07 - 06/26/22 0659 Shift 4726-8867 9274-0954 24 Hour Total 8845-7200 6714-2709 24 Hour Total INTAKE Other 75885 98271 Shift Total(mL/kg) 84778(101.9) 93757(101.9) OUTPUT Other 47346 41316 Shift Total(mL/kg) 10627(122) 25829(122) NET -2404 -2404 Weight (kg) 119 119.7 [...] Fellow PGY-4 Consult 1 Service Contact (phone): [phone] After hours and weekends: please page [phone] Cosigned by Miriam Driver MD at 06/28/2022 8:11 AM CHEMIST ORGANIC IST ORGANIC Associated attestation - Miriam Driver MD - 06/28/2022 8:11 AM CHEMIST ORGANIC I have seen and examined the patient on 06/25/22. I agree with the findings and plan of care as documented in the nephrology fellow's note. Miriam Driver MD Shaving Machine Operator Division of Nephrology * Plan of Care - Adelita Self RN - 06/25/2022 10:00 AM CDT Problem: Health Behavior: Goal: Understanding of discharge needs will improve Outcome: Progressing Goals: Clinical Goals for the Shift: up to chair Summary: Up to chair for short period this am. * Plan of Care - Wandy Garay, POKER MANAGER - 06/25/2022 4:45 AM CDT NPPV Situation: [...] 0659 06/24/22 07 - 06/25/22 0659 Shift 7087-9583 1052-5835 24 Hour Total 2498-3467 1409-2371 24 Hour Total INTAKE Other 77400 93151 IV Piggyback 250 250 Shift Total(mL/kg) 250(2.1) 58807(101.5) 57188(103.6) OUTPUT Urine(mL/kg/hr) 250(0.2) 250(0.1) Emesis/NG output 0 0 Other 61690 93310 Stool 0 0 Shift Total(mL/kg) 18454(106.5) 42129(106.5) NET 250 -030 -035 Weight (kg) 119.9 119.9 119.9 119 119 [...] Fellow PGY-4 Consult 1 Service Contact (phone): [phone] After hours and weekends: please page [phone] Cosigned by Miriam Driver MD at 06/24/2022 8:25 PM CDT Associated attestation - Miriam Driver MD - 06/24/2022 8:25 PM CDT I have seen and examined the patient on 06/24/22. I agree with the findings and plan of care as documented in the nephrology fellow's note. Agree with endocrinology. Continue PD settings. Miriam Driver MD Shaving Machine Operator Division of Nephrology * Plan of Care - Manda Ramasy RN - 06/24/2022 4:30 PM CDT Goals: [...] hygiene prior to po Specialty Instructions/Modifications: alert HEAD TRANSFER CLERK if pt coughing with meals HEAD TRANSFER CLERK noted pt was advanced to regular diet [...] updated diet recs, safe swallow strategies, and HEAD TRANSFER CLERK POC, they verbalized understanding and agreement. ST will briefly continue to follow. * Consults, Subsequent - Dora Delarosa, SUCTION ROLLER - 06/24/2022 12:29 PM CDT Endocrinology & Diabetes Progress Note Patient: Adelia Garvin Jr., 51 y.o. male (: 1970) Room: [place] [id number] ( ) LOS: 20 Adelia Garvin Jr. [...] agitation. 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, with assistant terminal manager use of insulin, complicated by ESRD on PD, CAD s/p PCI, CHF - HbA1c 7.4% - Uses Omnipod and Dexcom G6 at home, not currently on this- doesn't have the supplies -On significantly higher basal rates on pump at night due to peritoneal dialysis -home settings: Basal rate 0330 >>1.7 0800 >> 0.8 2000 >> 5.8 ICR1:6.5 ISF1:25 [id number] TIA 4 Over the previous 24 hours, [...] ## Discharge Planning - Follow-up with home mechanical facilities technician -- Dora Delarosa NP Endocrinology, Metabolism, & Lipid Research Contact Info: New Consults: [phone]) General Endocrine (Non-Diabetes): [phone] (Check 'Treatment Team' assignment for Diabetes 1 vs 2 vs 3) Diabetes 1: Diabetes Fellow: [phone] Diabetes 2: Dora Delarosa SUCTION ROLLER: [phone] Diabetes 3: See Treatment Team Provider (or [...] [facility] for the assigned case making machine operator or contact the weekend Case Management phone [...] 06/24/2022 0536 Gross per 24 hour Intake 67026 ml Output 83117 ml Net -347 ml Physical Exam: General: [...] ESRD on PD who was transferred to [facility] for an impella-supported complex PCI on 06/07/22 [...] us if questions arise. Will Villavicencio MD Technical Proposal Writer 11:36 AM 06/24/22 Cosigned by Musa Fernando MD at 06/25/2022 9:04 PM CDT Associated attestation - Musa Fernando MD - 06/25/2022 9:04 PM CDT 06/24/2022 I have personally seen and examined this pt with resident/Fellow/SUCTION ROLLER . I have reviewed History/Physical exam and plan for management. I agree with it . Musa Fernando M.D., Gerry. ed manager [employer] [facility]. [place] This note contains information [...] about verbage above please contact me at [phone]. . * Plan of Care - Jefferson [...] 06/23/22 0606/23/22 07 - 06/24/22 0659 Shift 1316-8757 24 Hour Total 3358-8614 4365-8078 24 Hour Total INTAKE Other 82361 67279 IV Piggyback 250 250 Shift Total(mL/kg) 16360(101.2) 24721(101.2) 250(2.1) 250(2.1) OUTPUT Urine(mL/kg/hr) 450 450 Other 63965 18469 Shift Total(mL/kg) 65074(122.6) 86755(122.6) [facility] -2571 -257 250 250 Weight (kg) 120.5 120.5 119.9 [...] Fellow PGY-4 Consult 1 Service Contact (phone): [phone] After hours and weekends: please page [phone] Cosigned by Miriam Driver MD at 06/23/2022 8:48 PM CDT Associated attestation - Miriam Driver MD - 06/23/2022 8:48 PM CDT I have seen and examined the patient on 06/23/22. I agree with the findings and plan of care as documented in the nephrology fellow's note. Miriam Driver MD Shaving Machine Operator Division of Nephrology * Assessment & Plan [...] dc tomorrow as pt has been accepted IST ORGANIC IST ORGANIC * Assessment & Plan Note - Frank [...] the setting of hypotension, HR 70s NSR IST ORGANIC * Assessment & Plan Note - Frank Bowers MD - 06/23/2022 4:47 PM CDT Associated Problem(s): Acute on chronic HFrEF (heart failure with reduced ejection fraction) ([facility]) C/b cardiogenic shock requiring impella in the setting of cath and AHRF 2/2 pulmonary edema, now resolved. TTE demonstrating recovered EF 65% with grade I diastolic dysfunction. - metop as above - continue low dose losartan 12.5mg daily, ok per nephro. Tolerating well - volume management per PD IST ORGANIC * Assessment & Plan Note - Frank Bowers MD - 06/23/2022 4:47 PM CDT Associated Problem(s): ESRD (end stage renal disease) ([facility]) ([facility]) - Renal consulted, s/p CRRT in the ICU now back on PD. Tolerated well and nephrology following - Trialysis catheter removed - Continue vitamins for renal bone mineral disease. IST ORGANIC * Assessment & Plan Note - Carey [...] resistant SSI increase NPH 45u before PD IST ORGANIC * Consults, Subsequent - Dora Delarosa NP - 06/23/2022 1:48 PM CDT Endocrinology & Diabetes Progress Note Patient: Adelia Garvin Jr., 51 y.o. male (: 1970) Room: [place] [address] ( ) LOS: 19 Adelia Garvin Jr. [...] agitation. 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, with fdc use of insulin, complicated by ESRD on PD, CAD s/p PCI, CHF - HbA1c 7.4% - Uses Omnipod and Dexcom G6 at home, not currently on this- doesn't have the supplies -On significantly higher basal rates on pump at night due to peritoneal dialysis -home settings: Basal rate 0330 >>1.7 0800 >> 0.8 2000 >> 5.8 ICR1:6.5 ISF1:25 [id number] TIA 4 Over the previous 24 hours, [...] ## Discharge Planning - Follow-up with home mechanical facilities technician -- Dora Delarosa NP Endocrinology, Metabolism, & Lipid Research Contact Info: New Consults: [phone]) General Endocrine (Non-Diabetes): [phone] (Check 'Treatment Team' assignment for Diabetes 1 vs 2 vs 3) Diabetes 1: Diabetes Fellow: [phone] Diabetes 2: Dora Delarosa NP: [phone] Diabetes 3: See Treatment Team Provider (or [...] 0659 06/22/22 07 - 06/23/22 0659 Shift 9163-5273 24 Hour Total 9911-3755 5856-9813 24 Hour Total INTAKE I.V.(mL/kg) 133.2(1.1) Other 94911 47442 NG/GT 100 Shift Total(mL/kg) 22822(93.8) 38741.2(95.7) OUTPUT Urine(mL/kg/hr) 450 450 Emesis/NG output 0 Other 02923 90434 Shift Total(mL/kg) 00829(108.4) 89454(108.4) 450(3.7) 450(3.7) NET -1759 -1525.8 -450 -450 [...] Fellow PGY-4 Consult 1 Service Contact (phone): [phone] After hours and weekends: please page [phone] Cosigned by Miriam Driver MD at 06/23/2022 11:57 AM CDT Associated attestation - Miriam Driver MD - 06/23/2022 11:57 AM CDT I have seen and examined the patient on 06/22/22. I agree with the findings and plan of care as documented in the nephrology fellow's note. Miriam Driver MD Shaving Machine Operator Division of Nephrology * Assessment & Plan [...] 8:18 PM CDT Associated Problem(s): Atrial fibrillation ([facility]) ([facility]) -Currently rated controlled with metoprolol, CHADsVASc of 4 not on anticoagulation prior to admission. -Follow cardiology for initiation of AC. * Assessment & Plan Note - Luiz Lewis DO - 06/22/2022 8:16 PM CDT Associated Problem(s): Acute on chronic HFrEF (heart failure with reduced ejection fraction) ([facility]) -With acute exacerbation complicated by pulmonary edema since resolved. -Repeat TTE following Impella removal showed recovered EF of 65% with grade I diastolic dysfunction. -Continue metoprolol tartrate, start GDMT per cardiology. * Assessment & Plan Note - Luiz Lewis DO - 06/22/2022 8:15 PM CDT Associated Problem(s): ESRD (end stage renal disease) ([facility]) ([facility]) -Renal consulted, s/p CRRT in [...] for n/v and chest pain, transferred to [facility] for LHC/PCI, who presented to CCU s/p complex PCI with impella and intubated. Now extubated, tolerating PO intake, on home PD. Arrived at [place] from OSH on 06/05. EKG showed sinus [...] Elsie of the CREU service. QUESTIONS? Call [phone] * Subjective & Objective - Luiz Lewis, [...] at 06/22/20221944 Gross per 24 hour Intake 13720 ml Output 43412 ml Net -2209 ml Constitutional - chronically [...] made/in place: 51 yo male transferred to [facility] ICU for complex PCI with impella.Unable to [...] Patient and/or family are agreeable with plan. photo lab manager will continue to follow and assist with discharge planning as needed. If any further discharge needs arise, please contact the covering case making machine operator. Rossi Hay RN * Consults, Subsequent - Dora Delarosa NP - 06/22/2022 12:39 PM CDT Endocrinology & Diabetes Progress Note Patient: Adelia Garvin Jr., 51 y.o. male (: 1970) Room: [place] [address] ( ) LOS: 18 Adelia Garvin Jr. [...] agitation. 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, with fdc use of insulin, complicated by ESRD on PD, CAD s/p PCI, CHF - HbA1c 7.4% - Uses Omnipod and Dexcom G6 at home, not currently on this- doesn't have the supplies -On significantly higher basal rates on pump at night due to peritoneal dialysis -home settings: Basal rate 0330 >>1.7 0800 >> 0.8 2000 >> 5.8 ICR1:6.5 ISF1:25 [id number] TIA 4 Over the previous 24 hours, [...] ## Discharge Planning - Follow-up with home mechanical facilities technician -- Dora Delarosa NP Endocrinology, Metabolism, & Lipid Research Contact Info: New Consults: [phone]) General Endocrine (Non-Diabetes): [phone] (Check 'Treatment Team' assignment for Diabetes 1 vs 2 vs 3) Diabetes 1: Diabetes Fellow: [phone] Diabetes 2: Dora Delarosa NP: [phone] Diabetes 3: See Treatment Team Provider (or call Dora Delarosa, above) Diabetes After-Hours & Weekends: Diabetes Fellow * Plan of Care - Jersey Castano, POKER MANAGER - 06/22/2022 1:10 AM CDT Plan of [...] 0659 06/21/22 07 - 06/22/22 0659 Shift 7711-8964 0023-4870 24 Hour Total 6805-8031 0316-4391 24 Hour Total INTAKE I.V.(mL/kg) 225(1.8) 399.6(3.4) [...] Fellow PGY-4 Consult 1 Service Contact (phone): [phone] After hours and weekends: please page [phone] Cosigned by Miriam Driver MD at 07/04/2022 10:00 AM CHEMIST ORGANIC IST ORGANIC Associated attestation - Miriam Driver MD - 07/04/2022 10:00 AM CHEMIST ORGANIC I have seen and examined the patient on 06/21/22. I agree with the findings and plan of care as documented in the nephrology Fellow's note. Miriam Driver MD Shaving Machine Operator Division of Nephrology * Consults, Subsequent - Dora Delarosa NP - 06/21/2022 1:09 PM CDT Endocrinology & Diabetes Progress Note Patient: Adelia Garvin Jr., 51 y.o. male (: 1970) Room: [place] [address][id number] ( ) LOS: 17 Adelia Garvin Jr. [...] agitation. 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, with fdc use of insulin, complicated by ESRD on PD, CAD s/p PCI, CHF - HbA1c 7.4% - Uses Omnipod and Dexcom G6 at home, not currently on this- doesn't have the supplies -On significantly higher basal rates on pump at night due to peritoneal dialysis -home settings: Basal rate 0330 >>1.7 0800 >> 0.8 2000 >> 5.8 ICR1:6.5 ISF1:25 [id number] TIA 4 Over the previous 24 hours, [...] ## Discharge Planning - Follow-up with home mechanical facilities technician -- Dora Delarosa NP Endocrinology, Metabolism, & Lipid Research Contact Info: New Consults: [phone]) General Endocrine (Non-Diabetes): [phone] (Check 'Treatment Team' assignment for Diabetes 1 vs 2 vs 3) Diabetes 1: Diabetes Fellow: [phone] Diabetes 2: Dora Delarosa SUCTION ROLLER: [phone] Diabetes 3: See Treatment Team Provider (or [...] dialysis nursing of the conversation. I am hadoop application developer tonight, please do not hesitate to page if plans change. Chandrakant Nava MD Nephrology Fellow, PGY-4 Night Service [phone]. * Consults, Subsequent - Carol Sanchez MD - 06/20/2022 1:59 PM CDT Endocrinology & Diabetes Progress Note Patient: Adelia Garvin Jr., 51 y.o. male (: 1970) Room: [place] [address][id number] ( ) LOS: 16 Adelia Garvin Jr. [...] Plan 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, with fdc use of insulin, complicated by ESRD on PD, CAD s/p PCI, CHF - HbA1c 7.4% - Uses Omnipod and Dexcom G6 at home, not currently on this- doesn't have the supplies -On significantly higher basal rates on pump at night due to peritoneal dialysis -home settings: Basal rate 0330 >>1.7 0800 >> 0.8 2000 >> 5.8 ICR1:6.5 ISF1:25 [id number] TIA 4 High insulin requirements in setting [...] ## Discharge Planning - Follow-up with home mechanical facilities technician -- Carol Sanchez MD Endocrinology, Metabolism, & Lipid Research Contact Info: New Consults: [phone]) General Endocrine (Non-Diabetes): [phone] (Check 'Treatment Team' assignment for Diabetes 1 vs 2 vs 3) Diabetes 1: Diabetes Fellow: [phone] Diabetes 2: Dora Delarosa SUCTION ROLLER: [phone] Diabetes 3: See Treatment Team Provider (or call Dora Delarosa, above) Diabetes After-Hours & Weekends: Diabetes Fellow * Plan of Care - Milly Cooper RN - 06/20/2022 12:41 PM CDT Rounds with MD, case making machine operator, social work, & charge nurse Medical chart [...] Patient and family are agreeable with plan. photo lab manager will continue to follow and assist [...] eventually back to PD Miriam Driver MD Shaving Machine Operator Division of Nephrology * Consults, Subsequent - [...] AM Result Value Ref Range Product code [id number] Unit Number [id number] Product Blood Type APOS Dispense Status ISSUED [...] AM Result Value Ref Range Product code [id number] Unit Number [id number] Product Blood Type APOS Dispense Status RETURNED [...] not require specific follow up. Please call hadoop application developer pulmonary consult fellow with additional questions or [...] findings: I/O last 2 completed shifts: In: 00053.4 [I.V.:1014.4; Other:68574; NG/GT:190; IV Piggyback:420] Out: 39548 [Other:77709] I have reviewed current medications and the [...] 93% I/O last 2 completed shifts: In: 51047.4 [I.V.:1014.4; Other:95642; NG/GT:190; IV Piggyback:420] Out: 30424 [Other:65520] I/O this shift: In: 480.2 [I.V.:480.2] Out: [...] 0.9% I/O last 2 completed shifts: In: 86739.3 [I.V.:1388.3; Other:69042; NG/GT:90; IV Piggyback:110] Out: 84579 [Other:75306; Stool:170] Objective Vitals: Vitals: 06/18/22 1508 BP: [...] Pulmonary will continue to follow. Please call hadoop application developer pulmonary consult fellow with additional questions or [...] Post Procedure Note Attending: Dr Payam Allison Clinical Trials Manager: Dr. Aric Whitlock Sedation/Anesthesia: Local Pre-Op/Pre-Procedure Diagnosis: [...] 0659 06/18/22 07 - 06/19/22 0659 Shift 4983-3703 1434-3696 24 Hour Total 0354-7950 4127-6283 24 Hour Total INTAKE I.V.(mL/kg) 953(7.3) 435.3(3.3) 1388.3(10.6) 189(1.4) 189(1.4) Other 7498 7483 16712 93639 47912 NG/GT 90 90 160 160 IV Piggyback 110 110 Shift Total(mL/kg) 8561(65.8) 8008.3(61.1) 67193.3(126.4) 09222(94.3) 66116(94.3) OUTPUT Urine(mL/kg/hr) 0(0) 0(0) Other 9865 6255 11264 92630 82423 Stool 170 170 Shift Total(mL/kg) 9865(75.8) 5754(43.9) 47931(119.1) 00021(115.6) 65785(115.6) [facility] -1304 2254.3 950.3 -2790 -2790 [...] Fellow PGY-4 Consult 1 Service Contact (phone): [phone] After hours and weekends: please page [phone] Cosigned by Miriam Driver MD at 06/18/2022 7:03 PM CDT Associated attestation - Miriam Driver MD - 06/18/2022 7:03 PM CDT I have seen and examined the patient on 06/18/2022. I agree with the findings and plan of care as documented in the nephrology Fellow's note. Miriam Driver MD Shaving Machine Operator Division of Nephrology * Pre-Procedure Note - [...] Diabetes mellitus (HCC) Diabetes mellitus type I ([facility]) Dialysis patient ([facility]) (HCC) ESRD on dialysis ([facility]) ([facility]) GERD (gastroesophageal reflux disease) Hyperlipidemia [...] patch, 1 patch, transdermal, Daily PRN, Fernando Torrse MD meropenem (MERREM) 1,000 mg/110 mL in [...] syrup 8.8 mg, 8.8 mg, oral, Nightly, CasrtoMeme MD, 8.8 mg at 06/16/22 2110 sodium [...] been discussed with the patient and/or their inside sales representative. All questions answered and they agree to proceed. * This addendum was created to correct the sedation plan. Patient is already intubated and sedated.We will continue with current sedation. * Plan of Care - Jersey Castano, POKER MANAGER - 06/18/2022 12:59 AM CDT Mechanical Ventilation [...] 07 - 06/17/2265806/17/22699 - 06/18/22 0659 Shift 2696-5554 4931-7157 24 Hour Total 6568-6525 6872-8513 24 Hour Total INTAKE I.V.(mL/kg) 856.1(6.8) 544.4(4.3) [...] Fellow PGY-4 Consult 1 Service Contact (phone): [phone] After hours and weekends: please page [phone] Cosigned by Miriam Driver MD at 06/17/2022 7:02 PM CDT Associated attestation - Miriam Driver MD - 06/17/2022 7:02 PM CDT I have seen and examined the patient on 06/17/2022. I agree with the findings and plan of care as documented in the nephrology Fellow's note. Miriam Driver MD Shaving Machine Operator Division of Nephrology * Consults, Subsequent - [...] Pulmonary will continue to follow. Please call hadoop application developer pulmonary consult fellow with additional questions or [...] Jr., 51 y.o. male (: 1970) Room: [place] [address] [address] ( ) LOS: 13 Adelia Garvin Jr. is a 51 y.o. male with PMHx CHF (EF 50% in 2017), atrial fibrillation not on OAC, HTN/HLD, CAD s/p PCI, ESRD on PD, hyperparathyroidism presenting with weakness, N/V, diarrhea and chest pain. He is scheduled for [facility] on 06/06. Diabetes service consulted for [...] Plan 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, with fdc use of insulin, complicated by ESRD on PD, CAD s/p PCI, CHF - HbA1c 7.4% - Uses Omnipod and Dexcom G6 at home, not currently on this- doesn't have the supplies -On significantly higher basal rates on pump at night due to peritoneal dialysis -home settings: Basal rate 0330 >>1.7 0800 >> 0.8 2000 >> 5.8 ICR1:6.5 ISF1:25 [id number] TIA 4 High insulin requirements in setting [...] ## Discharge Planning - Follow-up with home mechanical facilities technician -- Delmar Longo MD PhD Endocrinology, Metabolism, & Lipid Research Contact Info: New Consults: [phone]) General Endocrine (Non-Diabetes): [phone] (Check 'Treatment Team' assignment for Diabetes 1 vs 2 vs 3) Diabetes 1: Diabetes Fellow: [phone] Diabetes 2: Dora Delarosa, SUCTION ROLLER: [phone] Diabetes 3: See Treatment Team Provider (or call Dora Delarosa, above) Diabetes After-Hours & Weekends: Diabetes Fellow * Plan of Care - Jersey Castano, POKER MANAGER - 06/17/2022 12:49 AM CDT Mechanical Ventilation [...] 0659 06/16/22 07 - 06/17/22 0659 Shift 3548-0297 9748-0135 24 Hour Total 7896-9434 9023-4345 24 Hour Total INTAKE I.V.(mL/kg) 624.4(5.1) 669(5.4) 1293.4(10.3) 729.7(5.8) 729.7(5.8) Other 1000 56934 76211 NG/GT 275 275 100 100 Shift Total(mL/kg) 1899.4(15.4) 19313(102.8) 99481.4(118) 829.7(6.6) 829.7(6.6) OUTPUT Urine(mL/kg/hr) 0(0) 0(0) 0(0) 0 0 Other 39164 65881 Shift Total(mL/kg) 0(0) 05662(96.7) 64712(96.7) 0(0) 0(0) NET 1899.4 768 2667.4 829.7 [...] Fellow PGY-4 Consult 1 Service Contact (phone): [phone] After hours and weekends: please page [phone] Cosigned by Miriam Driver MD at 06/16/2022 [...] now due to hyperglycemia. Miriam Driver MD Shaving Machine Operator Division of Nephrology * Pre-Procedure Note - [...] ramelteon I/O last 2 completed shifts: In: 89732.4 [I.V.:1293.4; Other:28278; NG/GT:275] Out: 81053 [Other:57342] Objective Vitals: Vitals: 06/16/221199 BP: Pulse: 81 [...] Pulmonary will continue to follow. Please call hadoop application developer pulmonary consult fellow with additional questions or [...] Jr., 51 y.o. male (: 1970) Room: [place] [address] ( ) LOS: 12 Adelia Garvin Jr. is a 51 y.o. male with PMHx CHF (EF 50% in 2017), atrial fibrillation not on OAC, HTN/HLD, CAD s/p PCI, ESRD on PD, hyperparathyroidism presenting with weakness, N/V, diarrhea and chest pain. He is scheduled for [facility] on 06/06. Diabetes service consulted for [...] Plan 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, with assistant terminal manager use of insulin, complicated by ESRD on PD, CAD s/p PCI, CHF - HbA1c 7.4% - Uses Omnipod and Dexcom G6 at home, not currently on this- doesn't have the supplies -On significantly higher basal rates on pump at night due to peritoneal dialysis -home settings: Basal rate 0330 >>1.7 0800 >> 0.8 2000 >> 5.8 ICR1:6.5 ISF1:25 [id number] TIA 4 Currently on TF Glucerna 1.5 ( CHO 133) Recommendations: - please increase Lantus to 40 units qAM - Humalog 10 units Q4hrs - NPH 15 units at the beginning of PD session - Resistant correctional Humalog q4 hrs - POC glucoses q4hrs Discharge recommendations: - TBD ## Discharge Planning - Follow-up with home mechanical facilities technician -- Kellee Magallanes MD Endocrinology, Metabolism, & Lipid Research Contact Info: New Consults: [phone]) General Endocrine (Non-Diabetes): [phone] (Check 'Treatment Team' assignment for Diabetes 1 vs 2 vs 3) Diabetes 1: Diabetes Fellow: [phone] Diabetes 2: Dora Delarosa, SUCTION ROLLER: [phone] Diabetes 3: See Treatment Team Provider (or [...] visit to the patient. Bryce Langley MD, [facility] Shaving Machine Operatorhot press operator Division of Endocrinology, Metabolism & Lipid Research [...] * Plan of Care - Juanito Hernandez, POKER MANAGER - 06/15/2022 10:13 PM CDT Patient was [...] Date 06/14/22699 - 06/15/2265806/15/22699 - 06/16/2259 Shift 8368-2809 7781-9689 24 Hour Total 9331-3747 1957-1646 24 Hour Total INTAKE I.V.(mL/kg) 520.5(4) 498.9(4.1) 1019.4(8.3) 624.4(5.1) 624.4(5.1) NG/GT 764 207 7271 275 275 Shift Total(mL/kg) 905.5(7) 1278.9(10.4) 2184.4(17.8) [...] Fellow PGY-4 Consult 1 Service Contact (phone): [phone] After hours and weekends: please page [phone] Cosigned by Miriam Driver MD at 06/15/2022 7:33 PM CDT Associated attestation - Miriam Driver MD - 06/15/2022 7:33 PM CDT I have seen and examined the patient on 06/15/2022. I agree with the findings and plan of care as documented in the nephrology Fellow's note. Miriam Driver MD Shaving Machine Operator Division of Nephrology * Plan of Care [...] 2:12 PM CDT Rounds with MD, case making machine operator, social work, & charge nurse Medical chart [...] Patient and family are agreeable with plan. photo lab manager will continue to follow and assist with discharge planning as needed * Consults, Rodney - Miriam Driver MD - 06/14/2022 1:58 PM CDT Nephrology SLED/CRRT Procedure Note Date of Service: 06/14/2022 I saw and evaluated the patient during CRRT. Indication for POKER MANAGER: ESRD Dialysis access: LIJ Trialysis catheter My [...] stable On systemic heparin Miriam Driver MD Shaving Machine Operator Division of Nephrology Consult 1: After 4 [...] Pulmonary will continue to follow. Please call hadoop application developer pulmonary consult fellow with additional questions or [...] evaluated the patient during CRRT. Indication for POKER MANAGER: ESRD Dialysis access: LIJ Trialysis catheter My [...] Jr., 51 y.o. male (: 1970) Room: [place] [address] [address] ( ) LOS: 9 Adelia Garvin Jr. [...] Plan 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, with assistant terminal manager use of insulin, complicated by ESRD on PD, CAD s/p PCI, CHF - HbA1c 7.4% - Uses Omnipod and Dexcom G6 at home, not currently on this- doesn't have the supplies -On significantly higher basal rates on pump at night due to peritoneal dialysis -home settings: Basal rate 0330 >>1.7 0800 >> 0.8 2000 >> 5.8 ICR1:6.5 ISF1:25 [id number] TIA 4 Currently on TF Glucerna 1.5 ( CHO 133) Recommendations: - please decrease Lantus to 30 units qAM - Humalog 5 units Q4hrs - Resistant correctional Humalog q4 hrs - POC glucoses q4hrs Discharge recommendations: Start Omnipod insulin pump at pre-hospital settings #Acute hypoxic respiratory failure #ESRD on PD at home - on CRRT ## Discharge Planning - Follow-up with home mechanical facilities technician We will sign off, we are happy to come back on board once he is back on his PD -- Kellee Magallanes MD Endocrinology, Metabolism, & Lipid Research Contact Info: New Consults: [phone]) General Endocrine (Non-Diabetes): [phone] (Check 'Treatment Team' assignment for Diabetes 1 vs 2 vs 3) Diabetes 1: Diabetes Fellow: [phone] Diabetes 2: Dora Delarosa, SUCTION ROLLER: [phone] Diabetes 3: See Treatment Team Provider (or [...] discussion with the patient. Bryce Langley MD, [facility] Shaving Machine Operatorhot press operator Division of Endocrinology, Metabolism & Lipid Research [...] evaluated the patient during CRRT. Indication for POKER MANAGER: ESRD Dialysis access: LIJ Trialysis catheter My [...] scale Q4h Ayah Hoang MD Endocrinology Fellow [phone] Cosigned by Ann Boston MD at 06/12/2022 [...] flush 10 mL, 10 mL, intra-catheter, PRN, Jeffrye Green MD dextrose 5% water flush 10-30 [...] injection 0-10 Units, 0-10 Units, subcutaneous, Q4H [facility], Meme Castro MD, 4 Units at [...] diaphragm with the tip excluded from the [id number]. Left internal jugular catheter projects at superior [...] scale Q4h Ayah Hoang MD Endocrinology Fellow [phone] Cosigned by Ann Boston MD at 06/12/2022 [...] evaluated the patient during CRRT. Indication for POKER MANAGER: ESRD Dialysis access: LIJ Trialysis catheter My [...] this interval not displayed. Vonnie Cody MD hot press operator Division of Nephology Consult 1: After 4 [...] evaluated the patient during CRRT. Indication for POKER MANAGER: ESRD Dialysis access: LIJ Trialysis catheter My [...] this interval not displayed. Vonnie Cody MD hot press operator Division of Nephology Consult 1: After 4 PM on , after 12 PM on Monday, and all day Monday, please contact on-call renal fellow at with questions. * Consults, Subsequent - Kellee Magallanes MD - 06/10/2022 1:00 PM CDT Endocrinology & Diabetes Progress Note Patient: Adelia Garvin Jr., 51 y.o. male (: 1970) Room: [place] [address] [address] ( ) LOS: 6 Adelia Garvin Jr. is a 51 y.o. male with PMHx CHF (EF 50% in 2017), atrial fibrillation not on OAC, HTN/HLD, CAD s/p PCI, ESRD on PD, hyperparathyroidism presenting with weakness, N/V, diarrhea and chest pain. He is scheduled for [facility] on 06/06. Diabetes service consulted for [...] Plan 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, with fdc use of insulin, complicated by ESRD on PD, CAD s/p PCI, CHF - HbA1c 7.4% - Uses Omnipod and Dexcom G6 at home, not currently on this- doesn't have the supplies -On significantly higher basal rates on pump at night due to peritoneal dialysis -home settings: Basal rate 0330 >>1.7 0800 >> 0.8 2000 >> 5.8 ICR1:6.5 ISF1:25 [id number] TIA 4 Recommendations: - Lantus 33 units [...] ## Discharge Planning - Follow-up with home mechanical facilities technician -- Kellee Magallanes MD Endocrinology, Metabolism, & Lipid Research Contact Info: New Consults: [phone]) General Endocrine (Non-Diabetes): [phone] (Check 'Treatment Team' assignment for Diabetes 1 vs 2 vs 3) Diabetes 1: Diabetes Fellow: [phone] Diabetes 2: Dora Delarosa, SUCTION ROLLER: [phone] Diabetes 3: See Treatment Team Provider (or [...] discussion with the patient. Bryce Langley MD, [facility] Shaving Machine Operatorhot press operator Division of Endocrinology, Metabolism & Lipid Research [...] unit/mL injection 33 Units 33 Units subcutaneous [facility] Meme Castro MD 33 Units at 06/10/22 0847 insulin lispro (HumaLOG, ADMELOG) 100 unit/mL injection 0-10 Units 0-10 Units subcutaneous Q4H [facility] Meme Castro MD 2 Units at [...] evaluated the patient during CRRT. Indication for POKER MANAGER: ESRD Dialysis access: LIJ Trialysis catheter My [...] this interval not displayed. Vonnie Cody MD hot press operator Division of Nephology Consult 1: After 4 [...] Jr., 51 y.o. male (: 1970) Room: [place] [address] [address] ( ) LOS: 5 Adelia Garvin Jr. is a 51 y.o. male with PMHx CHF (EF 50% in 2017), atrial fibrillation not on OAC, HTN/HLD, CAD s/p PCI, ESRD on PD, hyperparathyroidism presenting with weakness, N/V, diarrhea and chest pain. He is scheduled for [facility] on 06/06. Diabetes service consulted for [...] Plan 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, with assistant terminal manager use of insulin, complicated by ESRD on PD, CAD s/p PCI, CHF - HbA1c 7.4% - Uses Omnipod and Dexcom G6 at home, not currently on this- doesn't have the supplies -On significantly higher basal rates on pump at night due to peritoneal dialysis -home settings: Basal rate 0330 >>1.7 0800 >> 0.8 2000 >> 5.8 ICR1:6.5 ISF1:25 [id number] TIA 4 Recommendations: - Lantus 33 units [...] ## Discharge Planning - Follow-up with home mechanical facilities technician -- Kellee Magallanes MD Endocrinology, Metabolism, & Lipid Research Contact Info: New Consults: [phone]) General Endocrine (Non-Diabetes): [phone] (Check 'Treatment Team' assignment for Diabetes 1 vs 2 vs 3) Diabetes 1: Diabetes Fellow: [phone] Diabetes 2: Dora Delarosa, SUCTION ROLLER: [phone] Diabetes 3: See Treatment Team Provider (or call oDra Delarosa, above) Diabetes After-Hours & Weekends: Diabetes [...] discussion with the patient. Bryce Langley MD, [facility] Shaving Machine Operatorhot press operator Division of Endocrinology, Metabolism & Lipid Research [...] Jr., 51 y.o. male (: 1970) Room: [place] [id number] ( ) LOS: 4 Adelia Garvin Jr. [...] Plan 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, with fdc use of insulin, complicated by ESRD on PD, CAD s/p PCI, CHF - HbA1c 7.4% - Uses Omnipod and Dexcom G6 at home, not currently on this- doesn't have the supplies -On significantly higher basal rates on pump at night due to peritoneal dialysis -home settings: Basal rate 0330 >>1.7 0800 >> 0.8 2000 >> 5.8 ICR1:6.5 ISF1:25 [id number] TIA 4 Recommendations: - Lantus 33 units [...] ## Discharge Planning - Follow-up with home mechanical facilities technician -- Kellee Magallanes MD Endocrinology, Metabolism, & Lipid Research Contact Info: New Consults: [phone]) General Endocrine (Non-Diabetes): [phone] (Check 'Treatment Team' assignment for Diabetes 1 vs 2 vs 3) Diabetes 1: Diabetes Fellow: [phone] Diabetes 2: Dora Delarosa, SUCTION ROLLER: [phone] Diabetes 3: See Treatment Team Provider (or [...] evaluated the patient during CRRT. Indication for POKER MANAGER: ESRD Dialysis access: LIJ Trialysis catheter My [...] -- 4.7* 7.2* 6.6* Vonnie Cody MD hot press operator Division of Nephology Consult 1: After 4 PM on , after 12 PM on Monday, and all day Monday, please contact on-call renal fellow at with questions. * Plan of Care - Joyce Begum, POKER MANAGER - 06/08/2022 3:33 AM CDT Patient on mechanical ventilation. Wean as tolerated. * Plan of Care - Low Cardoso MD - 06/07/2022 4:37 PM CDT Nephrology update note Patient not seen, off the floor for cardiac catheterization Patient reportedly had cardiopulmonary decompensation requiring intubation. Additionally had Impella placed and undergoing ECMO evaluation Trialysis catheter placed while in cardiac biology laboratory assistant Given need for aggressive volume removal, will start CVVHDF Low Cardoso MD Nephrology Fellow Consult 2 Service Contact via Scoopinion Message After 4pm on , after 12pm [...] given. Additionally hypoxic on blood gas. Assisted [facility] team in getting levo and epi gtt started, titrated up to 0.1mcg/kg/min each. Impella placed by interventional cardiology team. CTS at bedside for ECMO evaluation. Cj Yang, CA-3, Anesthesiology [facility] Cosigned by Cody Mendosa MD at 06/08/2022 2:17 PM CDT Associated attestation - Cody Mendosa MD - 06/08/2022 2:17 PM CDT Anesthesia STAT was called while patient in biology laboratory assistant for complex PCI. Upon my arrival, he [...] Jr., 51 y.o. male (: 1970) Room: [facility]/NO* ( ) LOS: 3 [...] Plan 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, with assistant terminal manager use of insulin, complicated by ESRD on PD, CAD s/p PCI, CHF - HbA1c 7.4% - Uses Omnipod and Dexcom G6 at home, not currently on this- doesn't have the supplies - - On significantly higher basal rates on pump at night due to peritoneal dialysis -home settings: Basal rate 0330 >>1.7 0800 >> 0.8 2000 >> 5.8 ICR1:6.5 ISF1:25 [id number] TIA 4 Recommendations: - Lantus 33 units [...] ## Discharge Planning - Follow-up with home mechanical facilities technician -- Kellee Magallanes MD Endocrinology, Metabolism, & Lipid Research Contact Info: New Consults: [phone]) General Endocrine (Non-Diabetes): [phone] (Check 'Treatment Team' assignment for Diabetes 1 vs 2 vs 3) Diabetes 1: Diabetes Fellow: [phone] Diabetes 2: Dora Delarosa SUCTION ROLLER: [phone] Diabetes 3: See Treatment Team Provider (or [...] monitor VS, improve oxygenation status, go to biology laboratory assistant for LHC today,possibly do another scan for [...] Thank you, SIL Avilez, RN, CCDS Email: [email or web address] * Consults, Subsequent - Low Cardoso MD [...] Date 06/05/22699 - 06/06/2265806/06/22699 - 06/07/22658 Shift 7626-3270 1797-7753 24 Hour Total 3892-7998 7245-5386 24 Hour Total INTAKE P.O. 60 60 450 450 I.V.(mL/kg) 443.1(3.1) 443.1(3.1) 147.7(1) 147.7(1) Other 54844 33788 24622 IV Piggyback 105 105 Shift Total(mL/kg) 14429(84.2) 45353.1(86.1) 99143.1(170.3) 597.7(4.2) 597.7(4.2) OUTPUT Urine(mL/kg/hr) 0(0) 6(0) 6(0) 0 0 Other 78584 66148 51702 Stool 0 0 Shift Total(mL/kg) 13505(87.7) 04654(98.3) 61175(186) 0(0) 0(0) NET -498 -1729.9 -2227.9 597.7 [...] Nephrology Fellow Consult 2 Service Contact via Scoopinion Message After 4pm on , after 12pm [...] Jr., 51 y.o. male (: 1970) Room: [place] [address] [address] ( ) LOS: 2 Adelia Garvin Jr. is a 51 y.o. male with PMHx CHF (EF 50% in 2017), atrial fibrillation not on OAC, HTN/HLD, CAD s/p PCI, ESRD on PD, hyperparathyroidism presenting with weakness, N/V, diarrhea and chest pain. He is scheduled for [facility] on 06/06. Diabetes service consulted for [...] Plan 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, with fdc use of insulin, complicated by ESRD on PD, CAD s/p PCI, CHF - HbA1c 7.4% - Uses Omnipod and Dexcom G6 at home, not currently on this- doesn't have the supplies - - On significantly higher basal rates on pump at night due to peritoneal dialysis -home settings: Basal rate 0330 >>1.7 0800 >> 0.8 2000 >> 5.8 ICR1:6.5 ISF1:25 [id number] TIA 4 Recommendations: - Lantus 33 units [...] ## Discharge Planning - Follow-up with home mechanical facilities technician -- Kellee Magallanes MD Endocrinology, Metabolism, & Lipid Research Contact Info: New Consults: [phone]) General Endocrine (Non-Diabetes): [phone] (Check 'Treatment Team' assignment for Diabetes 1 vs 2 vs 3) Diabetes 1: Diabetes Fellow: [phone] Diabetes 2: Dora Delarosa SUCTION ROLLER: [phone] Diabetes 3: See Treatment Team Provider (or [...] Shift: Monitor VS and keep SBP 140-160, electronic lab technician for [facility] Summary: * Plan of Care - [...] we should call his brother Ronny Garvin [phone] or [phone] (pt not sure which is the correct [...] utility assistance and LIHEAP assistance programs for [facility]. Pt denied other needs stating he has good support from his brother and son. SÁNCHEZ Virk, BINDER LAYER * Plan of Care - Manisha Wong [...] POCT GLUCOSE DEVICE Routine 06/29/2022 11:51 AM CHEMIST ORGANIC POCT GLUCOSE DEVICE Routine 06/29/2022 7 :43 AM CHEMIST ORGANIC POCT GLUCOSE DEVICE Routine 06/28/2022 8 :08 PM CHEMIST ORGANIC COVID-19 CORONAVIRUS RNA Routine 06/28/2022 3:46 PM CHEMIST ORGANIC POCT GLUCOSE DEVICE Routine 06/28/2022 3 :33 PM CHEMIST ORGANIC POCT GLUCOSE DEVICE Routine 06/28/2022 11:42 AM CHEMIST ORGANIC POCT GLUCOSE DEVICE Routine 06/28/2022 9 :53 AM CHEMIST ORGANIC POCT GLUCOSE DEVICE Routine 06/28/2022 8 :37 AM CHEMIST ORGANIC POCT GLUCOSE DEVICE Routine 06/28/2022 8 :20 AM CHEMIST ORGANIC POCT GLUCOSE DEVICE Routine 06/28/2022 8 :02 AM CHEMIST ORGANIC POCT GLUCOSE DEVICE Routine 06/28/2022 7 :41 AM CHEMIST ORGANIC POCT GLUCOSE DEVICE Routine 06/27/2022 7 :51 PM CHEMIST ORGANIC POCT GLUCOSE DEVICE Routine 06/27/2022 4 :54 PM CHEMIST ORGANIC POCT GLUCOSE DEVICE Routine 06/27/2022 11:37 AM CHEMIST ORGANIC POCT GLUCOSE DEVICE Routine 06/27/2022 7 :54 AM CHEMIST ORGANIC EGFR Routine 06/27/2022 3:51 AM CHEMIST ORGANIC CBC WITHOUT DIFFERENTIAL Routine 06/27/2022 3:51 AM CHEMIST ORGANIC BASIC METABOLIC PANEL Routine 06/27/2022 3:51 AM CHEMIST ORGANIC POCT GLUCOSE DEVICE Routine 06/27/2022 1 :54 AM CHEMIST ORGANIC POCT GLUCOSE DEVICE Routine 06/26/2022 9 :14 PM CHEMIST ORGANIC POCT GLUCOSE DEVICE Routine 06/26/2022 5 :53 PM CHEMIST ORGANIC POCT GLUCOSE DEVICE Routine 06/26/2022 1 :16 PM CHEMIST ORGANIC POCT GLUCOSE DEVICE Routine 06/26/2022 11:09 AM CHEMIST ORGANIC POCT GLUCOSE DEVICE Routine 06/26/2022 9 :07 AM CHEMIST ORGANIC POCT GLUCOSE DEVICE Routine 06/26/2022 7 :25 AM CHEMIST ORGANIC EGFR Routine 06/26/2022 3:23 AM CHEMIST ORGANIC CBC WITHOUT DIFFERENTIAL Routine 06/26/2022 3:23 AM CHEMIST ORGANIC BASIC METABOLIC PANEL Routine 06/26/2022 3:23 AM CHEMIST ORGANIC POCT GLUCOSE DEVICE Routine 06/26/2022 1 :32 [...] VIDEO IP Routine 06/21/2022 2:06 PM CDT HEAD TRANSFER CLERK EVALUATE AND TREAT VIDEOFLUOROSCOPIC SWALLOW STUDY Routine [...] EGFR STAT 06/05/2022 3:22 PM CDT POCT [id number]-[id number]-HCT,WB - ISTAT Routine 06/05/2022 3:22 PM CDT [...] * (ABNORMAL) POCT glucose (06/29/2022 11:51 AM CHEMIST ORGANIC) Glucose, POC 302(H) 70 - 199 mg/dL [facility] Blood 06/29/2022 11:5 1 AM CHEMIST ORGANIC 06/29/2022 11:51 AM CHEMIST ORGANIC Frank Bowers MD LAB POCT ORDERABLES - DEVICE F inal Result [facility] [place] [address] * (ABNORMAL) POCT glucose (06/29/2022 7:43 AM CHEMIST ORGANIC) Glucose, POC 262(H) 70 - 199 mg/dL [facility] Glucose comment 1 Glu2: RN/ Notified [facility] Blood 06/29/2022 7:43 AM CHEMIST ORGANIC 06/29/2022 7:43 AM CHEMIST ORGANIC us Frank Bowers MD LAB POCT ORDERABLES - DEVICE F inal Result Performing Organization Address City/[facility]/ZIP Co de Phone Number [facility] [place] [address] * (ABNORMAL) POCT glucose (06/28/2022 8:08 PM CHEMIST ORGANIC) Pathologist [facility] Glucose, POC 260(H) 70 - 199 mg/dL [facility] Blood 06/28/2022 8:08 PM CHEMIST ORGANIC 06/28/2022 8:08 PM CHEMIST ORGANIC Frank Bowers MD LAB POCT ORDERABLES - DEVICE F inal Result Performing Organization Address [facility] de Phone Number [facility] [place] [address] * COVID-19 Coronavirus RNA Nasopharyngeal (06/28/2022 3:46 PM CHEMIST ORGANIC) [facility] COVID-19 RNA Negative Negative [facility] Nasopharyngeal 06/28/2022 3: 46 PM CHEMIST ORGANIC 06/28/2022 4:22 PM CHEMIST ORGANIC Narrative [facility] - 06/28/2022 5:03 PM CHEMIST ORGANIC Is the patient experiencing any symptoms consistent with COVID (eg. Fever, cough, shortness of breath)?->No What is the reason for testing?->Placement in post-acute care setting (Rapid) ??Interpretive data: Synonyms for this test include: PCR and NAAT . ??This test is performed using the [employer] Xpert Xpress plus assay. This is a [...] . ??This test is performed using the [employer] Xpert Xpress plus assay. This is a [...] ORD ERABLES Final Result Performing Organization Address City/[facility] Co de Phone Number [facility] [place] [address] * (ABNORMAL) POCT glucose (06/28/2022 3:33 PM CHEMIST ORGANIC) Glucose, POC 299(H) 70 - 199 mg/dL [facility] Blood 06/28/2022 3:33 PM CHEMIST ORGANIC 06/28/2022 3:33 PM CHEMIST ORGANIC Frank Bowers MD LAB POCT ORDERABLES - DEVICE F inal Result Performing Organization Address [facility] Co de Phone Number [facility] Department [place] [employer] [address] * (ABNORMAL) POCT glucose (06/28/2022 11:42 AM CHEMIST ORGANIC) Glucose, POC 281(H) 70 - 199 mg/dL [facility] Glucose comment 1 Glu2: RN/MD Notified [facility] Blood 06/28/2022 11:4 2 AM CHEMIST ORGANIC 06/28/2022 11:42 AM CHEMIST ORGANIC Frank Bowers MD LAB POCT ORDERABLES - DEVICE F inal Result Performing Organization Address City/[facility] Co de Phone Number [facility] [place] [address] * POCT glucose (06/28/2022 9:53 AM CHEMIST ORGANIC) Glucose, POC 181 70 - 199 mg/dL [facility] Blood 06/28/2022 9:53 AM CHEMIST ORGANIC 06/28/2022 9:53 AM CHEMIST ORGANIC Frank Bowers MD LAB POCT ORDERABLES - DEVICE F inal Result Performing Organization Address City/[facility] [place] [address] * POCT glucose (06/28/2022 8:37 AM CHEMIST ORGANIC) Glucose, POC 121 70 - 199 mg/dL [facility] Blood 06/28/2022 8:37 AM CHEMIST ORGANIC 06/28/2022 8:37 AM CHEMIST ORGANIC Frank Bowers MD LAB POCT ORDERABLES - DEVICE F inal Result Performing Organization Address City/[facility] [place] [address] * POCT glucose (06/28/2022 8:20 AM CHEMIST ORGANIC) Glucose, POC 95 70 - 199 mg/dL [facility] Blood 06/28/2022 8:20 AM CHEMIST ORGANIC 06/28/2022 8:20 AM CHEMIST ORGANIC Frank Bowers MD LAB POCT ORDERABLES - DEVICE F inal Result Performing Organization Address City/[facility] [place] [address] * POCT glucose (06/28/2022 8:02 AM CHEMIST ORGANIC) Glucose, POC 75 70 - 199 mg/dL [facility] Blood 06/28/2022 8:02 AM CHEMIST ORGANIC 06/28/2022 8:02 AM CHEMIST ORGANIC Frank Bowers MD LAB POCT ORDERABLES - DEVICE F inal Result Performing Organization Address [facility] de Phone Number [facility] [place] [address] * (ABNORMAL) POCT glucose (06/28/2022 7:41 AM CHEMIST ORGANIC) Glucose, POC 68(L) 70 - 199 mg/dL [facility] Glucose comment 1 Glu2: RN/MD Notified [facility] Blood 06/28/2022 7:41 AM CHEMIST ORGANIC 06/28/2022 7:41 AM CHEMIST ORGANIC Frank Bowers MD LAB POCT ORDERABLES - DEVICE F inal Result Performing Organization Address [facility] de Phone Number [facility] [place] [address] * POCT glucose (06/27/2022 7:51 PM CHEMIST ORGANIC) Glucose, POC 199 70 - 199 mg/dL [facility] Blood 06/27/2022 7:51 PM CHEMIST ORGANIC 06/27/2022 7:51 PM CHEMIST ORGANIC Carey East MD LAB POCT ORDERABLES - DEVICE Final Result Performing Organization Address [facility] de Phone Number [facility] [place] [address] * POCT glucose (06/27/2022 4:54 PM CHEMIST ORGANIC) Glucose, POC 143 70 - 199 mg/dL [facility] Blood 06/27/2022 4:54 PM CHEMIST ORGANIC 06/27/2022 4:54 PM CHEMIST ORGANIC Carey East MD LAB POCT ORDERABLES - DEVICE Final Result Performing Organization Address [facility] [place] [address] * (ABNORMAL) POCT glucose (06/27/2022 11:37 AM CHEMIST ORGANIC) Glucose, POC 228(H) 70 - 199 mg/dL [facility] Glucose comment 1 Glu2: RN/MD Notified [facility] Blood 06/27/2022 11:3 7 AM CHEMIST ORGANIC 06/27/2022 11:37 AM CHEMIST ORGANIC Carey East MD LAB POCT ORDERABLES - DEVICE Final Result Performing Organization Address [facility] [place] [address] * (ABNORMAL) POCT glucose (06/27/2022 7:54 AM CHEMIST ORGANIC) Glucose, POC 350(H) 70 - 199 mg/dL [facility] Blood 06/27/2022 7:54 AM CHEMIST ORGANIC 06/27/2022 7:54 AM CHEMIST ORGANIC Carey East MD LAB POCT ORDERABLES - DEVICE Final Result Performing Organization Address [facility] [place] [address] * (ABNORMAL) eGFR (06/27/2022 3:51 AM CHEMIST ORGANIC) eGFR 6(L) 90 - 130 mL/min/1. 73 m2 [facility] Comment: Interpretive Data Reference Interval [...] last reviewed 2021. Blood 06/27/2022 3:51 AM CHEMIST ORGANIC 06/27/2022 4:28 AM CHEMIST ORGANIC us Carey East MD LAB BLOOD ORDERABLES Final Result [facility] [place] [address] * (ABNORMAL) CBC without differential (06/27/2022 3:51 AM CHEMIST ORGANIC) WBC 3.8 3.8 - 9.9 K/cumm [facility] Hgb 7.5(L) 13.0 - 17.5 g/dL [facility] Hct 22.8(L) 38.9 - 50.3 % [facility] Plt 294 150 - 400 K/cumm [facility] MPV 10.0 9.1 - 12.3 fL [facility] RBC 2.49(L) 4.30 - 5.80 M/cumm [facility] MCV 91.6 81.3 - 96.4 fL [facility] MCH 30.1 27.1 - 33.3 pg [facility] MCHC 32.9 32.3 - 35.7 g/dL [facility] RDW CV 17.5(H) 11.1 - 14.9 % [facility] RDW SD 57.9(H) 35.7 - 48.1 fL [facility] NRBC abs 0.00 0.00 - 0.01 K/cumm [facility] Blood 06/27/2022 3:51 AM CHEMIST ORGANIC 06/27/2022 4:28 AM CHEMIST ORGANIC us Carey East MD LAB BLOOD ORDERABLES Final Result [facility] [place] [address] * (ABNORMAL) Basic metabolic panel (06/27/2022 3:51 AM CHEMIST ORGANIC) Sodium 132(L) 135 - 145 mmol/L [facility] Potassium, pl 3.1(L) 3.3 - 4.9 mmol/L [facility] Chloride 89(L) 97 - 110 mmol/L [facility] CO2 26 22 - 32 mmol/L [facility] Anion gap 17(H) 2 - 15 mmol/L [facility] BUN 46(H) 8 - 25 mg/dL [facility] Creatinine 10.21(H) 0.80 - 1.30 mg/dL [facility] Glucose 274(H) 70 - 199 mg/dL [facility] Comment: Interpretive Data Fasting glucose [...] mg/dL [facility] Blood 06/27/2022 3:51 AM CHEMIST ORGANIC 06/27/2022 4:28 AM CHEMIST ORGANIC Carey East MD LAB BLOOD ORDERABLES Final Result Performing Organization Address [facility] Co de Phone Number [facility] [place] [employer] [place] [address] * (ABNORMAL) POCT glucose (06/27/2022 1:54 AM CHEMIST ORGANIC) Glucose, POC 276(H) 70 - 199 mg/dL [facility] Blood 06/27/2022 1:54 AM CHEMIST ORGANIC 06/27/2022 1:54 AM CHEMIST ORGANIC Carey East MD LAB POCT ORDERABLES - DEVICE Final Result Performing Organization Address [facility] Co de Phone Number [facility] [place] [employer] [place] [address] * POCT glucose (06/26/2022 9:14 PM CHEMIST ORGANIC) Glucose, POC 184 70 - 199 mg/dL [facility] Blood 06/26/2022 9:14 PM CHEMIST ORGANIC 06/26/2022 9:14 PM CHEMIST ORGANIC Carey East MD LAB POCT ORDERABLES - DEVICE Final Result Performing Organization Address [facility] de Phone Number [facility] [place] [employer] [address] * POCT glucose (06/26/2022 5:53 PM CHEMIST ORGANIC) Glucose, POC 98 70 - 199 mg/dL [facility] Blood 06/26/2022 5:53 PM CHEMIST ORGANIC 06/26/2022 5:53 PM CHEMIST ORGANIC us Carey East MD LAB POCT ORDERABLES - DEVICE Final Result Performing Organization Address [facility] Co de Phone Number [facility] [address] * (ABNORMAL) POCT glucose (06/26/2022 1:16 PM CHEMIST ORGANIC) Glucose, POC 202(H) 70 - 199 mg/dL [facility] Blood 06/26/2022 1:16 PM CHEMIST ORGANIC 06/26/2022 1:16 PM CHEMIST ORGANIC Carey East MD LAB POCT ORDERABLES - DEVICE Final Result Performing Organization Address [facility] [place] [address] * (ABNORMAL) POCT glucose (06/26/2022 11:09 AM CHEMIST ORGANIC) Glucose, POC 320(H) 70 - 199 mg/dL [facility] Glucose comment 1 Glu2: RN/MD Notified [facility] Blood 06/26/2022 11:0 9 AM CHEMIST ORGANIC 06/26/2022 11:09 AM CHEMIST ORGANIC us Carey East MD LAB POCT ORDERABLES - DEVICE Final Result Performing Organization Address [facility] [place] [address] * (ABNORMAL) POCT glucose (06/26/2022 9:07 AM CHEMIST ORGANIC) Glucose, POC 400(H) 70 - 199 mg/dL [facility] Blood 06/26/2022 9:07 AM CHEMIST ORGANIC 06/26/2022 9:07 AM CHEMIST ORGANIC Carey East MD LAB POCT ORDERABLES - DEVICE Final Result Performing Organization Address [facility] Co de Phone Number [facility] [place] [address] * (ABNORMAL) POCT glucose (06/26/2022 7:25 AM CHEMIST ORGANIC) Pathologist [facility] Glucose, POC 393(H) 70 - 199 mg/dL [facility] Glucose comment 1 Glu2: RN/MD Notified [facility] Blood 06/26/2022 7:25 AM CHEMIST ORGANIC 06/26/2022 7:25 AM CHEMIST ORGANIC Carey East MD LAB POCT ORDERABLES - DEVICE Final Result Performing Organization Address [facility] Co de Phone Number [facility] [place] [address] * (ABNORMAL) eGFR (06/26/2022 3:23 AM CHEMIST ORGANIC) [facility] eGFR 5(L) 90 - 130 mL/min/1. 73 m2 [facility] Comment: Interpretive Data Reference Interval [...] last reviewed 2021. Blood 06/26/2022 3:23 AM CHEMIST ORGANIC 06/26/2022 5:00 AM CHEMIST ORGANIC Carey East MD LAB BLOOD ORDERABLES Final Result [facility] [place] [address] * (ABNORMAL) CBC without differential (06/26/2022 3:23 AM CHEMIST ORGANIC) WBC 4.1 3.8 - 9.9 K/cumm [facility] Hgb 7.6(L) 13.0 - 17.5 g/dL [facility] Hct 23.3(L) 38.9 - 50.3 % [facility] Plt 250 150 - 400 K/cumm [facility] MPV 10.7 9.1 - 12.3 fL [facility] RBC 2.49(L) 4.30 - 5.80 M/cumm [facility] MCV 93.6 81.3 - 96.4 fL [facility] MCH 30.5 27.1 - 33.3 pg [facility] MCHC 32.6 32.3 - 35.7 g/dL [facility] RDW CV 17.8(H) 11.1 - 14.9 % [facility] RDW SD 59.3(H) 35.7 - 48.1 fL [facility] NRBC abs 0.00 0.00 - 0.01 K/cumm [facility] Blood 06/26/2022 3:23 AM CHEMIST ORGANIC 06/26/2022 5:00 AM CHEMIST ORGANIC Carey East MD LAB BLOOD ORDERABLES Final Result [facility] [place] [address] * (ABNORMAL) Basic metabolic panel (06/26/2022 3:23 AM CHEMIST ORGANIC) Pathologist [facility] Sodium 134(L) 135 - 145 mmol/L [facility] Potassium, pl 3.6 3.3 - 4.9 mmol/L [facility] Chloride 91(L) 97 - 110 mmol/L [facility] CO2 26 22 - 32 mmol/L [facility] Anion gap 17(H) 2 - 15 mmol/L [facility] BUN 47(H) 8 - 25 mg/dL [facility] Creatinine 10.28(H) 0.80 - 1.30 mg/dL [facility] Glucose 335(H) 70 - 199 mg/dL [facility] Comment: Interpretive Data Fasting glucose [...] 2017. Calcium 8.5 8.5 - 10.3 mg/dL [facility] Blood 06/26/2022 3:23 AM CHEMIST ORGANIC 06/26/2022 5:00 AM CHEMIST ORGANIC us Carey East MD LAB BLOOD ORDERABLES Final Result [facility] [place] [address] * (ABNORMAL) POCT glucose (06/26/2022 1:32 AM CDT) Glucose, POC 334(H) 70 - 199 mg/dL [facility] Blood 06/26/2022 1:32 AM CDT 06/26/2022 1:32 AM CDT Carey East MD LAB POCT ORDERABLES - DEVICE Final Result Performing Organization Address [facility] Co de Phone Number [facility] [place] [address] * (ABNORMAL) POCT glucose (06/25/2022 9:02 PM CDT) Glucose, POC 257(H) 70 - 199 mg/dL [facility] Blood 06/25/2022 9:02 PM CDT 06/25/2022 9:02 PM CDT Carey East MD LAB POCT ORDERABLES - DEVICE Final Result Performing Organization Address [facility] Co de Phone Number [facility] [place] [address] * (ABNORMAL) POCT glucose (06/25/2022 6:30 PM CDT) Glucose, POC 223(H) 70 - 199 mg/dL [facility] Blood 06/25/2022 6:30 PM CDT 06/25/2022 6:30 PM CDT Carey East MD LAB POCT ORDERABLES - DEVICE Final Result Performing Organization Address [facility] Co de Phone Number [facility] [place] [address] * (ABNORMAL) POCT glucose (06/25/2022 4:21 PM CDT) Glucose, POC 241(H) 70 - 199 mg/dL [facility] Glucose comment 1 Glu2: RN/MD Notified [facility] Blood 06/25/2022 4:21 PM CDT 06/25/2022 4:21 PM CDT Carey East MD LAB POCT ORDERABLES - DEVICE Final Result Performing Organization Address [facility] de Phone Number [facility] [place] [employer] [place] [address] * (ABNORMAL) POCT glucose (06/25/2022 11:42 AM CDT) [facility] Glucose, POC 296(H) 70 - 199 mg/dL [facility] Glucose comment 1 Glu2: RN/MD Notified [facility] Blood 06/25/2022 11:4 2 AM CDT 06/25/2022 11:42 AM CDT Carey East MD LAB POCT ORDERABLES - DEVICE Final Result Performing Organization Address [facility] de Phone Number [facility] [place] [employer] [place] [address] * (ABNORMAL) POCT glucose (06/25/2022 7:42 AM CDT) [facility] Glucose, POC 363(H) 70 - 199 mg/dL [facility] Glucose comment 1 Glu2: RN/MD Notified [facility] Blood 06/25/2022 7:42 AM CDT 06/25/2022 7:42 AM CDT Carey East MD LAB POCT ORDERABLES - DEVICE Final Result Performing Organization Address [facility] [place] [address] * (ABNORMAL) eGFR (06/25/2022 4:36 AM CDT) [facility] eGFR 6(L) 90 - 130 mL/min/1. 73 m2 [facility] Comment: Interpretive Data Reference Interval [...] BLOOD ORDERABLES Final Result Performing Organization Address [facility] Phone Number [facility] [place] [address] * (ABNORMAL) Phosphorus (06/25/2022 4:36 AM CDT) Phosphorus, pl 7.9(H) 2.3 - 4.5 mg/dL [facility] Comment:Reviewed Blood 06/25/2022 4:36 AM CDT 06/25/2022 5:15 AM CDT Carey East MD LAB BLOOD ORDERABLES Final Result Performing Organization Address [facility] Co de Phone Number [facility] [place] [address] * (ABNORMAL) Basic metabolic panel (06/25/2022 4:36 AM CDT) Sodium 135 135 - 145 mmol/L [facility] Potassium, pl 3.9 3.3 - 4.9 mmol/L [facility] Chloride 93(L) 97 - 110 mmol/L [facility] CO2 28 22 - 32 mmol/L [facility] Anion gap 14 2 - 15 mmol/L [facility] BUN 44(H) 8 - 25 mg/dL [facility] Creatinine 9.57(H) 0.80 - 1.30 mg/dL [facility] Glucose 281(H) 70 - 199 mg/dL [facility] Comment: Interpretive Data Fasting glucose [...] 2017. Calcium 8.6 8.5 - 10.3 mg/dL [facility] Blood 06/25/2022 4:36 AM CDT 06/25/2022 5:15 AM CDT us Carey East MD LAB BLOOD ORDERABLES Final Result Performing Organization Address City/[facility]/ZIP Co de Phone Number [facility] [place] [address] * (ABNORMAL) POCT glucose (06/25/2022 1:41 AM CDT) Glucose, POC 265(H) 70 - 199 mg/dL [facility] Blood 06/25/2022 1:41 AM CDT 06/25/2022 1:41 AM CDT Carey East MD LAB POCT ORDERABLES - DEVICE Final Result Performing Organization Address [facility] Co de Phone Number [facility] [place] [address] * (ABNORMAL) POCT glucose (06/24/2022 8:01 PM CDT) Glucose, POC 246(H) 70 - 199 mg/dL [facility] Blood 06/24/2022 8:01 PM CDT 06/24/2022 8:01 PM CDT Carey East MD LAB POCT ORDERABLES - DEVICE Final Result Performing Organization Address [facility] Co de Phone Number [facility] [place] [address] * POCT glucose (06/24/2022 4:55 PM CDT) Glucose, POC 185 70 - 199 mg/dL [facility] Blood 06/24/2022 4:55 PM CDT 06/24/2022 4:55 PM CDT Carey East MD LAB POCT ORDERABLES - DEVICE Final Result Performing Organization Address [facility] Co de Phone Number [facility] [place] [employer] [place] [address] * (ABNORMAL) POCT glucose (06/24/2022 12:53 PM CDT) Glucose, POC 275(H) 70 - 199 mg/dL [facility] Glucose comment 1 Glu2: RN/MD Notified [facility] Blood 06/24/2022 12:5 3 PM CDT 06/24/2022 12:53 PM CDT Carey East MD LAB POCT ORDERABLES - DEVICE Final Result Performing Organization Address [facility] [place] [address] * (ABNORMAL) POCT glucose (06/24/2022 11:31 AM CDT) Glucose, POC 346(H) 70 - 199 mg/dL [facility] Glucose comment 1 Glu2: RN/MD Notified [facility] Blood 06/24/2022 11:3 1 AM CDT 06/24/2022 11:31 AM CDT Carey East MD LAB POCT ORDERABLES - DEVICE Final Result Performing Organization Address [facility] [place] [address] * (ABNORMAL) POCT glucose (06/24/2022 9:54 AM CDT) Glucose, POC 411(H) 70 - 199 mg/dL [facility] Blood 06/24/2022 9:54 AM CDT 06/24/2022 9:54 AM CDT Carey East MD LAB POCT ORDERABLES - DEVICE Final Result Performing Organization Address [facility] [place] [address] * (ABNORMAL) POCT glucose (06/24/2022 7:33 AM CDT) Glucose, POC 415(H) 70 - 199 mg/dL [facility] Glucose comment 1 Glu2: RN/MD Notified [facility] Blood 06/24/2022 7:33 AM CDT 06/24/2022 7:33 AM CDT Carey East MD LAB POCT ORDERABLES - DEVICE Final Result [facility] [place] [address] * (ABNORMAL) eGFR (06/24/2022 4:10 AM CDT) Pathologist [facility] eGFR 7(L) 90 - 130 mL/min/1. 73 m2 [facility] Comment: Interpretive Data Reference Interval [...] East MD LAB BLOOD ORDERABLES Final Result [facility] [place] [address] * (ABNORMAL) CBC without differential (06/24/2022 4:10 AM CDT) [facility] WBC 4.3 3.8 - 9.9 K/cumm [facility] Hgb 7.9(L) 13.0 - 17.5 g/dL [facility] Hct 24.0(L) 38.9 - 50.3 % [facility] Plt 206 150 - 400 K/cumm [facility] MPV 10.3 9.1 - 12.3 fL [facility] RBC 2.61(L) 4.30 - 5.80 M/cumm [facility] MCV 92.0 81.3 - 96.4 fL [facility] MCH 30.3 27.1 - 33.3 pg [facility] MCHC 32.9 32.3 - 35.7 g/dL [facility] RDW CV 18.5(H) 11.1 - 14.9 % [facility] RDW SD 58.3(H) 35.7 - 48.1 fL [facility] NRBC abs 0.00 0.00 - 0.01 K/cumm [facility] Blood 06/24/2022 4:10 AM CDT 06/24/2022 4:34 AM CDT Carey East MD LAB BLOOD ORDERABLES Final Result Performing Organization Address [facility] Co de Phone Number [facility] [place] [address] * (ABNORMAL) Basic metabolic panel (06/24/2022 4:10 AM CDT) [facility] Sodium 134(L) 135 - 145 mmol/L [facility] Potassium, pl 3.9 3.3 - 4.9 mmol/L [facility] Chloride 94(L) 97 - 110 mmol/L [facility] CO2 25 22 - 32 mmol/L [facility] Anion gap 15 2 - 15 mmol/L [facility] BUN 46(H) 8 - 25 mg/dL [facility] Creatinine 8.83(H) 0.80 - 1.30 mg/dL [facility] Glucose 390(H) 70 - 199 mg/dL [facility] Comment: Interpretive Data Fasting glucose [...] 2017. Calcium 8.5 8.5 - 10.3 mg/dL [facility] Blood 06/24/2022 4:10 AM CDT 06/24/2022 4:34 AM CDT Carey East MD LAB BLOOD ORDERABLES Final Result Performing Organization Address City/[facility]/ZIP Co de Phone Number [facility] [place] [employer] [place] [address] * (ABNORMAL) POCT glucose (06/24/2022 1:44 AM CDT) [facility] Glucose, POC 389(H) 70 - 199 mg/dL [facility] Blood 06/24/2022 1:44 AM CDT 06/24/2022 1:44 AM CDT Carey East MD LAB POCT ORDERABLES - DEVICE Final Result [facility] [place] [address] * (ABNORMAL) POCT glucose (06/24/2022 1:26 AM CDT) Glucose, POC 428(H) 70 - 199 mg/dL [facility] Blood 06/24/2022 1:26 AM CDT 06/24/2022 1:26 AM CDT Caery East MD LAB POCT ORDERABLES - DEVICE Final Result Performing Organization Address [facility] de Phone Number [facility] [place] [address] * (ABNORMAL) POCT glucose (06/23/2022 8:49 PM CDT) Glucose, POC 306(H) 70 - 199 mg/dL [facility] Blood 06/23/2022 8:4 9 PM CDT 06/23/2022 8:49 PM CDT Carey East MD LAB POCT ORDERABLES - DEVICE Final Result Performing Organization Address [facility] de Phone Number [facility] [place] [place] [address] * (ABNORMAL) POCT glucose (06/23/2022 7:45 PM CDT) Glucose, POC 284(H) 70 - 199 mg/dL [facility] Blood 06/23/2022 7:45 PM CDT 06/23/2022 7:45 PM CDT Carey East MD LAB POCT ORDERABLES - DEVICE Final Result Performing Organization Address [facility] de Phone Number [facility] [place] [employer] [place] [address] * POCT glucose (06/23/2022 5:57 PM CDT) Glucose, POC 180 70 - 199 mg/dL [facility] Blood 06/23/2022 5:57 PM CDT 06/23/2022 5:57 PM CDT Carey East MD LAB POCT ORDERABLES - DEVICE Final Result Performing Organization Address [facility] Co de Phone Number [facility] [place] [address] * POCT glucose (06/23/2022 4:48 PM CDT) Glucose, POC 152 70 - 199 mg/dL [facility] Blood 06/23/2022 4:48 PM CDT 06/23/2022 4:48 PM CDT Carey East MD LAB POCT ORDERABLES - DEVICE Final Result Performing Organization Address [facility] de Phone Number [facility] [place] [employer] [place] [address] * POCT glucose (06/23/2022 3:43 PM CDT) Glucose, POC 174 70 - 199 mg/dL [facility] Blood 06/23/2022 3:43 PM CDT 06/23/2022 3:43 PM CDT Carey East MD LAB POCT ORDERABLES - DEVICE Final Result Performing Organization Address [facility] de Phone Number [facility] [place] [employer] [address] * (ABNORMAL) POCT glucose (06/23/2022 3:01 PM CDT) Glucose, POC 66(L) 70 - 199 mg/dL [facility] Blood 06/23/2022 3:01 PM CDT 06/23/2022 3:01 PM CDT us Carey East MD LAB POCT ORDERABLES - DEVICE Final Result Performing Organization Address [facility] Co de Phone Number ALESSANDRA CARRION Billie [facility] [place] [employer] [place] [address] * (ABNORMAL) eGFR (06/23/2022 2:35 PM CDT) eGFR 7(L) 90 - 130 mL/min/1. 73 m2 [facility] Comment: Interpretive Data Reference Interval [...] BLOOD ORDERABLES Final Result Performing Organization Address City/[facility] Co de Phone Number ALESSANDRA CARRION Billie [facility] [place] [address] * (ABNORMAL) Basic metabolic panel (06/23/2022 2:35 PM CDT) Pathologist [facility] Sodium 137 135 - 145 mmol/L [facility] Potassium, pl 3.6 3.3 - 4.9 mmol/L [facility] Chloride 96(L) 97 - 110 mmol/L [facility] CO2 25 22 - 32 mmol/L [facility] Anion gap 16(H) 2 - 15 mmol/L [facility] BUN 45(H) 8 - 25 mg/dL [facility] Creatinine 8.33(H) 0.80 - 1.30 mg/dL [facility] Glucose 55(L) 70 - 199 mg/dL [facility] Comment: Interpretive Data Fasting glucose [...] 2017. Calcium 8.3(L) 8.5 - 10.3 mg/dL [facility] Blood 06/23/2022 2:35 PM CDT 06/23/2022 3:04 PM CDT us Carey East MD LAB BLOOD ORDERABLES Final Result [facility] [place] [address] * Differential, auto (06/23/2022 2:34 PM CDT) Pathologist [facility] Neutrophil abs 2.7 1.7 - 6.5 K/cumm [facility] Imm gran abs 0.0 0.0 - 0.1 K/cumm [facility] Lymphocyte abs 1.3 0.8 - 3.3 K/cumm [facility] Monocyte abs 0.8 0.2 - 0.8 K/cumm [facility] Eosinophil abs 0.5 0.0 - 0.5 K/cumm [facility] Basophil abs 0.0 0.0 - 0.1 K/cumm [facility] Neutrophil pct 50.3 % [facility] Comment: Interpretive Data Percent cell count reference ranges are not reported, since discordance with absolute values may lead to misinterpretation of CBC data. Current Interpretive Data was last revised on 2017. Imm gran pct 0.6 % [facility] Comment: Interpretive Data Percent cell count reference ranges are not reported, since discordance with absolute values may lead to misinterpretation of CBC data. Current Interpretive Data was last revised on 2017. Lymphocyte pct 23.7 % [facility] Comment: Interpretive Data Percent cell count reference ranges are not reported, since discordance with absolute values may lead to misinterpretation of CBC data. Current Interpretive Data was last revised on 2017. Monocyte pct 15.5 % [facility] Comment: Interpretive Data Percent cell count reference ranges are not reported, since discordance with absolute values may lead to misinterpretation of CBC data. Current Interpretive Data was last revised on 2017. Eosinophil pct 9.2 % [facility] Comment: Interpretive Data Percent cell count reference ranges are not reported, since discordance with absolute values may lead to misinterpretation of CBC data. Current Interpretive Data was last revised on 2017. Basophil pct 0.7 % [facility] Comment: Interpretive Data Percent cell count reference ranges are not reported, since discordance with absolute values may lead to misinterpretation of CBC data. Current Interpretive Data was last revised on 2017. Blood 06/23/2022 2:34 PM CDT 06/23/2022 3:14 PM CDT us Carey East MD LAB BLOOD ORDERABLES Final Result [facility] [place] [address] * (ABNORMAL) CBC with auto differential (06/23/2022 2:34 PM CDT) [facility] WBC 5.4 3.8 - 9.9 K/cumm [facility] Hgb 8.2(L) 13.0 - 17.5 g/dL [facility] Comment:Consistent with ita ent history. Hct 25.2(L) 38.9 - 50.3 % [facility] Plt 215 150 - 400 K/cumm [facility] MPV 10.2 9.1 - 12.3 fL [facility] RBC 2.71(L) 4.30 - 5.80 M/cumm [facility] MCV 93.0 81.3 - 96.4 fL [facility] MCH 30.3 27.1 - 33.3 pg [facility] MCHC 32.5 32.3 - 35.7 g/dL [facility] RDW CV 18.7(H) 11.1 - 14.9 % [facility] RDW SD 57.2(H) 35.7 - 48.1 fL [facility] NRBC abs 0.00 0.00 - 0.01 K/cumm [facility] Blood 06/23/2022 2:34 PM CDT 06/23/2022 3:14 PM CDT us Carey East MD LAB BLOOD ORDERABLES Final Result [facility] [place] [address] * (ABNORMAL) Troponin I high-sensitivity 2-hour (06/23/2022 2:34 PM CDT) [facility] Trop I hs 3,636(C) <=35 ng/L [facility] Comment: Previous critical value noted within 48 hours ago. Interpretive Data For further hscTnI resources including the diagnostic algorithm and an aid in interpretation, copy and paste this link: https://bjhlab.testcatalog.org/show/hsTrop-[email or web address] Current Interpretive Data last revised 2020. Trop I hs delta See Comment ng/L [facility] Comment:Inappropriate collec tion time to report a delta. Trop I hs pct delta See Comment % [facility] Comment:Inappropriate collec tion time to report a delta. Trop I hs interp See Comment [facility] Comment:Inappropriate collec tion time to report a delta. Blood 06/23/2022 2:34 PM CDT 06/23/2022 3:14 PM CDT Carey East MD LAB BLOOD ORDERABLES Final Result Performing Organization Address City/[facility]/ZIP Co de Phone Number [facility] [place] [address] * (ABNORMAL) POCT glucose (06/23/2022 2:25 PM CDT) Glucose, POC 69(L) 70 - 199 mg/dL [facility] Blood 06/23/2022 2:25 PM CDT 06/23/2022 2:25 PM CDT Carey East MD LAB POCT ORDERABLES - DEVICE Final Result Performing Organization Address [facility] Co de Phone Number [facility] [place] [address] * Critical result callback Cardio chemistry (06/23/2022 2:01 PM CDT) Date Notified [id number] [facility] Time Notified 1454 [facility] Test name Trop I hs base [facility] Called/Read Back Fartun [facility] Credentials RN [facility] Called By karen [facility] Blood 06/23/2022 2:01 PM CDT 06/23/2022 2:16 PM CDT Carey East MD LAB BLOOD ORDERABLES Final Result Performing Organization Address City/[facility]/ZIP Co de Phone Number ALESSANDRA CARRION [facility] [place] [address] * (ABNORMAL) eGFR (06/23/2022 2:01 PM CDT) eGFR 7(L) 90 - 130 mL/min/1. 73 m2 [facility] Comment: Interpretive Data Reference Interval Normal ?>/= [...] BLOOD ORDERABLES Final Result Performing Organization Address [facility] Co de Phone Number ALESSANDRA CARRION [facility] [place] [address] * (ABNORMAL) Troponin I high-sensitivity series (baseline, 2hr, 4hr, 6hr) (06/23/2022 2:01 PM CDT) Trop I hs 3,653(C) <=35 ng/L [facility] Comment: Interpretive Data For further [facility] resources including the diagnostic algorithm and an aid in interpretation, copy and paste this link: https://bjhlab.testcatalog.org/show/[email or web address] Current Interpretive Data last revised 2020. Blood 06/23/2022 2:01 PM CDT 06/23/2022 2:16 PM CDT Carey East MD LAB BLOOD ORDERABLES Final Result Performing Organization Address City/[facility] Co de Phone Number [facility] [place] [address] * (ABNORMAL) Phosphorus (06/23/2022 2:01 PM CDT) [facility] Phosphorus, pl 5.2(H) 2.3 - 4.5 mg/dL [facility] Blood 06/23/2022 2:01 PM CDT 06/23/2022 2:16 PM CDT Carey East MD LAB BLOOD ORDERABLES Final Result Performing Organization Address City/[facility]/ZIP Co de Phone Number [facility] [place] [address] * (ABNORMAL) Magnesium (06/23/2022 2:01 PM CDT) Pathologist [facility] Magnesium 2.8(H) 1.4 - 2.5 mg/dL [facility] Blood 06/23/2022 2:01 PM CDT 06/23/2022 2:16 PM CDT Carey East MD LAB BLOOD ORDERABLES Final Result Performing Organization Address City/[facility]/ZIP Co de Phone Number [facility] [place] [address] * (ABNORMAL) CBC without differential (06/23/2022 2:01 PM CDT) [facility] WBC 5.9 3.8 - 9.9 K/cumm [facility] Hgb 4.6(C) 13.0 - 17.5 g/dL [facility] Comment:Critical result call ed to and read back by MOUSTAPHA RAMSAY(RN) on 06 23 2022 at 1428 to Erin Kidd. Hct 14.2(L) 38.9 - 50.3 % [facility] Plt 253 150 - 400 K/cumm [facility] MPV 10.1 9.1 - 12.3 fL [facility] RBC 1.51(L) 4.30 - 5.80 M/cumm [facility] MCV 94.0 81.3 - 96.4 fL [facility] MCH 30.5 27.1 - 33.3 pg [facility] MCHC 32.4 32.3 - 35.7 g/dL [facility] RDW CV 18.4(H) 11.1 - 14.9 % [facility] RDW SD 58.0(H) 35.7 - 48.1 fL [facility] NRBC abs 0.00 0.00 - 0.01 K/cumm [facility] Blood 06/23/2022 2:01 PM CDT 06/23/2022 2:17 PM CDT Narrative [facility] - 06/23/2022 2:29 PM CDT While on heparin infusion us Carey East MD LAB BLOOD ORDERABLES Final Result [facility] [place] [address] * (ABNORMAL) Basic metabolic panel (06/23/2022 2:01 PM CDT) [facility] Sodium 136 135 - 145 mmol/L [facility] Potassium, pl 3.4 3.3 - 4.9 mmol/L [facility] Chloride 96(L) 97 - 110 mmol/L [facility] CO2 25 22 - 32 mmol/L [facility] Anion gap 15 2 - 15 mmol/L [facility] BUN 45(H) 8 - 25 mg/dL [facility] Creatinine 8.21(H) 0.80 - 1.30 mg/dL [facility] Glucose 60(L) 70 - 199 mg/dL [facility] Comment: Interpretive Data Fasting glucose [...] 2017. Calcium 8.3(L) 8.5 - 10.3 mg/dL [facility] Blood 06/23/2022 2:01 PM CDT 06/23/2022 2:16 PM CDT Carey East MD LAB BLOOD ORDERABLES Final Result Performing Organization Address [facility]/ZIP Co de Phone Number [facility] [place] [employer] [place] [address] * POCT glucose (06/23/2022 1:42 PM CDT) Glucose, POC 79 70 - 199 mg/dL [facility] Blood 06/23/2022 1:42 PM CDT 06/23/2022 1:42 PM CDT Carey East MD LAB POCT ORDERABLES - DEVICE Final Result Performing Organization Address City/[facility]/ZIP Co de Phone Number [facility] [place] [place] [address] * ECG 12 lead (06/23/2022 1:30 PM CDT) [facility] Ventricular Rate EKG/Min 100 BPM [facility] Atrial Rate 100 BPM [facility] AR-Interval (MSEC) 182 ms [facility] QRS-Interval (MSEC) 106 ms [facility] QT-Interval (MSEC) 380 ms [facility] QTc 490 ms [facility] R [place] -47 degrees [facility] T [place] 105 degrees [facility] Diagnosis Sinus rhythm with Premature supraventricular complexes [...] M.D ([id number]) on 06/23/2022 4:28:23 PM [facility] 06/23/2022 1:30 PM CDT 06/23/2022 4:28 PM CDT Carey East MD ECG ORDERABLES Ann Marie l Result [facility] * POCT glucose (06/23/2022 1:20 PM CDT) [facility] Glucose, POC 88 70 - 199 mg/dL [facility] Blood 06/23/2022 1:20 PM CDT 06/23/2022 1:20 PM CDT Carey East MD LAB POCT ORDERABLES - DEVICE Final Result [facility] [place] [address] * POCT glucose (06/23/2022 11:48 AM CDT) Glucose, POC 163 70 - 199 mg/dL [facility] Blood 06/23/2022 11:4 8 AM CDT 06/23/2022 11:48 AM CDT us Carey East MD LAB POCT ORDERABLES - DEVICE Final Result [facility] [place] [address] * (ABNORMAL) POCT glucose (06/23/2022 7:28 AM CDT) Glucose, POC 320(H) 70 - 199 mg/dL [facility] Blood 06/23/2022 7:28 AM CDT 06/23/2022 7:28 AM CDT us Catherine Adams MD LAB POCT ORDERABLES - DEVIC E Final Result Performing Organization Address City/[facility]/ZIP Co de Phone Number [facility] [place] [address] * (ABNORMAL) Magnesium (06/23/2022 4:21 AM CDT) Magnesium 2.9(H) 1.4 - 2.5 mg/dL [facility] Blood 06/23/2022 4:21 AM CDT 06/23/2022 5:58 AM CDT us Luiz Lewis DO LAB BLOOD ORDERABLES Final Res ult [facility] [place] [employer] [place] [address] * (ABNORMAL) CBC without differential (06/23/2022 4:21 AM CDT) WBC 4.4 3.8 - 9.9 K/cumm [facility] Hgb 8.1(L) 13.0 - 17.5 g/dL [facility] Hct 25.8(L) 38.9 - 50.3 % [facility] Plt 206 150 - 400 K/cumm [facility] MPV 10.4 9.1 - 12.3 fL [facility] RBC 2.76(L) 4.30 - 5.80 M/cumm [facility] MCV 93.5 81.3 - 96.4 fL [facility] MCH 29.3 27.1 - 33.3 pg [facility] MCHC 31.4(L) 32.3 - 35.7 g/dL [facility] RDW CV 18.8(H) 11.1 - 14.9 % [facility] RDW SD 58.8(H) 35.7 - 48.1 fL [facility] NRBC abs 0.00 0.00 - 0.01 K/cumm [facility] Blood 06/23/2022 4:21 AM CDT 06/23/2022 5:58 AM CDT Narrative [facility] - 06/23/2022 6:08 AM CDT While on heparin infusion us Luiz Lewis DO LAB BLOOD ORDERABLES Final Res ult [facility] [place] [place] [address] * (ABNORMAL) POCT glucose (06/23/2022 1:38 AM CDT) [facility] Glucose, POC 244(H) 70 - 199 mg/dL [facility] Blood 06/23/2022 1:38 AM CDT 06/23/2022 1:38 AM CDT us Catherine Adams MD LAB POCT ORDERABLES - DEVIC E Final Result [facility] [place] [address] * (ABNORMAL) Phosphorus (06/22/2022 9:28 PM CDT) [facility] Phosphorus, pl 5.8(H) 2.3 - 4.5 mg/dL [facility] Blood 06/22/2022 9:28 PM CDT 06/22/2022 10:27 PM CDT Catherine Adams MD LAB BLOOD ORDERABLES Final Result Performing Organization Address City/[facility]/ZIP Co de Phone Number [facility] [place] [address] * POCT glucose (06/22/2022 9:14 PM CDT) [facility] Glucose, POC 176 70 - 199 mg/dL [facility] Blood 06/22/2022 9:14 PM CDT 06/22/2022 9:14 PM CDT Catherine Adams MD LAB POCT ORDERABLES - DEVIC E Final Result Performing Organization Address City/[facility] Co de Phone Number [facility] [place] [address] * POCT glucose (06/22/2022 5:37 PM CDT) [facility] Glucose, POC 88 70 - 199 mg/dL [facility] Blood 06/22/2022 5:37 PM CDT 06/22/2022 5:37 PM CDT Catherine Adams MD LAB POCT ORDERABLES - DEVIC E Final Result Performing Organization Address City/[facility] Co de Phone Number [facility] [place] [address] * (ABNORMAL) eGFR (06/22/2022 3:21 PM CDT) [facility] eGFR 8(L) 90 - 130 mL/min/1. 73 m2 [facility] Comment: Interpretive Data Reference Interval [...] 06/22/2022 3:52 PM CDT us Marcelina Lo SUCTION ROLLER LAB BLOOD ORDERABLES Final Re sult [facility] [place] [address] * Differential, auto (06/22/2022 3:21 PM CDT) [facility] Neutrophil abs 2.5 1.7 - 6.5 K/cumm [facility] Imm gran abs 0.0 0.0 - 0.1 K/cumm [facility] Lymphocyte abs 1.2 0.8 - 3.3 K/cumm [facility] Monocyte abs 0.8 0.2 - 0.8 K/cumm [facility] Eosinophil abs 0.5 0.0 - 0.5 K/cumm [facility] Basophil abs 0.0 0.0 - 0.1 K/cumm [facility] Neutrophil pct 51.2 % [facility] Comment: Interpretive Data Percent cell count reference ranges are not reported, since discordance with absolute values may lead to misinterpretation of CBC data. Current Interpretive Data was last revised on 2017. Imm gran pct 0.4 % [facility] Comment: Interpretive Data Percent cell count reference ranges are not reported, since discordance with absolute values may lead to misinterpretation of CBC data. Current Interpretive Data was last revised on 2017. Lymphocyte pct 23.3 % [facility] Comment: Interpretive Data Percent cell count reference ranges are not reported, since discordance with absolute values may lead to misinterpretation of CBC data. Current Interpretive Data was last revised on 2017. Monocyte pct 15.4 % [facility] Comment: Interpretive Data Percent cell count reference ranges are not reported, since discordance with absolute values may lead to misinterpretation of CBC data. Current Interpretive Data was last revised on 2017. Eosinophil pct 9.3 % [facility] Comment: Interpretive Data Percent cell count reference ranges are not reported, since discordance with absolute values may lead to misinterpretation of CBC data. Current Interpretive Data was last revised on 2017. Basophil pct 0.4 % [facility] Comment: Interpretive Data Percent cell count reference ranges are not reported, since discordance with absolute values may lead to misinterpretation of CBC data. Current Interpretive Data was last revised on 2017. Blood 06/22/2022 3:21 PM CDT 06/22/2022 3:52 PM CDT us Catherine Adams MD LAB BLOOD ORDERABLES Final Result [facility] [place] [address] * (ABNORMAL) CBC with auto differential (06/22/2022 3:21 PM CDT) WBC 4.9 3.8 - 9.9 K/cumm [facility] Hgb 7.8(L) 13.0 - 17.5 g/dL [facility] Hct 24.1(L) 38.9 - 50.3 % [facility] Plt 183 150 - 400 K/cumm [facility] MPV 10.2 9.1 - 12.3 fL [facility] RBC 2.54(L) 4.30 - 5.80 M/cumm [facility] MCV 94.9 81.3 - 96.4 fL [facility] MCH 30.7 27.1 - 33.3 pg [facility] MCHC 32.4 32.3 - 35.7 g/dL [facility] RDW CV 18.5(H) 11.1 - 14.9 % [facility] RDW SD 58.2(H) 35.7 - 48.1 fL [facility] NRBC abs 0.00 0.00 - 0.01 K/cumm [facility] Blood 06/22/2022 3:21 PM CDT 06/22/2022 3:52 PM CDT us Catherine Adams MD LAB BLOOD ORDERABLES Final Result [facility] [employer] [address] * (ABNORMAL) Magnesium (06/22/2022 3:21 PM CDT) Pathologist [facility] Magnesium 2.9(H) 1.4 - 2.5 mg/dL [facility] Blood 06/22/2022 3:21 PM CDT 06/22/2022 3:52 PM CDT us aMrcelina Lo NP LAB BLOOD ORDERABLES Final Re sult [facility] [place] [place] [address] * (ABNORMAL) Comprehensive metabolic panel (06/22/2022 3:21 PM CDT) Sodium 138 135 - 145 mmol/L [facility] Potassium, pl 3.7 3.3 - 4.9 mmol/L [facility] Chloride 99 97 - 110 mmol/L [facility] CO2 27 22 - 32 mmol/L [facility] Anion gap 12 2 - 15 mmol/L [facility] BUN 42(H) 8 - 25 mg/dL [facility] Creatinine 7.25(H) 0.80 - 1.30 mg/dL [facility] Glucose 103 70 - 199 mg/dL [facility] Comment: Interpretive Data Fasting glucose [...] 2017. Calcium 8.6 8.5 - 10.3 mg/dL [facility] Bilirubin, total 0.4 0.1 - 1.2 mg/dL [facility] Protein, pl 6.1(L) 6.5 - 8.5 g/dL [facility] Albumin 2.9(L) 3.5 - 5.0 g/dL [facility] Alk phos 112 40 - 130 Units/L [facility] ALT 31 7 - 55 Units/L [facility] AST 41 10 - 50 Units/L [facility] Blood 06/22/2022 3:21 PM CDT 06/22/2022 3:52 PM CDT us Marcelina Lo NP LAB BLOOD ORDERABLES Final Re sult [facility] [place] [address] * POCT glucose (06/22/2022 11:38 AM CDT) Glucose, POC 162 70 - 199 mg/dL [facility] Blood 06/22/2022 11:3 8 AM CDT 06/22/2022 11:38 AM CDT Catherine Adams MD LAB POCT ORDERABLES - DEVIC E Final Result Performing Organization Address City/[facility] Co de Phone Number [facility] [place] [address] * POCT glucose (06/22/2022 10:46 AM CDT) Glucose, POC 197 70 - 199 mg/dL [facility] Blood 06/22/2022 10:4 6 AM CDT 06/22/2022 10:46 AM CDT Catherine Adams MD LAB POCT ORDERABLES - DEVIC E Final Result Performing Organization Address City/[facility] Co de Phone Number [facility] [place] [address] * (ABNORMAL) POCT glucose (06/22/2022 9:07 AM CDT) Glucose, POC 313(H) 70 - 199 mg/dL [facility] Blood 06/22/2022 9:07 AM CDT 06/22/2022 9:07 AM CDT us Catherine Adams MD LAB POCT ORDERABLES - DEVIC E Final Result Performing Organization Address City/[facility] Co de Phone Number [facility] [place] [address] * (ABNORMAL) POCT glucose (06/22/2022 7:40 AM CDT) Glucose, POC 364(H) 70 - 199 mg/dL [facility] Blood 06/22/2022 7:40 AM CDT 06/22/2022 7:40 AM CDT us Catherine Adams MD LAB POCT ORDERABLES - DEVIC E Final Result Performing Organization Address [facility] Co de Phone Number [facility] [place] [address] * (ABNORMAL) POCT glucose (06/22/2022 7:38 AM CDT) Glucose, POC 318(H) 70 - 199 mg/dL [facility] Blood 06/22/2022 7:38 AM CDT 06/22/2022 7:38 AM CDT us Catherine Adams MD LAB POCT ORDERABLES - DEVIC E Final Result Performing Organization Address [facility] de Phone Number [facility] [place] [address] * (ABNORMAL) POCT glucose (06/22/2022 5:54 AM CDT) Glucose, POC 370(H) 70 - 199 mg/dL [facility] Blood 06/22/2022 5:54 AM CDT 06/22/2022 5:54 AM CDT Catherine Adams MD LAB POCT ORDERABLES - DEVIC E Final Result Performing Organization Address City/[facility] de Phone Number [facility] [address] * (ABNORMAL) eGFR (06/21/2022 9:55 PM CDT) eGFR 10(L) 90 - 130 mL/min/1. 73 m2 [facility] Comment: Interpretive Data Reference Interval [...] 06/21/2022 10:14 PM CDT us Marcelina Lo SUCTION ROLLER LAB BLOOD ORDERABLES Final Re sult [facility] [place] [address] * Differential, auto (06/21/2022 9:55 PM CDT) Neutrophil abs 3.7 1.7 - 6.5 K/cumm [facility] Imm gran abs 0.0 0.0 - 0.1 K/cumm [facility] Lymphocyte abs 1.0 0.8 - 3.3 K/cumm [facility] Monocyte abs 0.8 0.2 - 0.8 K/cumm [facility] Eosinophil abs 0.3 0.0 - 0.5 K/cumm [facility] Basophil abs 0.0 0.0 - 0.1 K/cumm [facility] Neutrophil pct 63.3 % [facility] Comment: Interpretive Data Percent cell count reference ranges are not reported, since discordance with absolute values may lead to misinterpretation of CBC data. Current Interpretive Data was last revised on 2017. Imm gran pct 0.5 % [facility] Comment: Interpretive Data Percent cell count reference ranges are not reported, since discordance with absolute values may lead to misinterpretation of CBC data. Current Interpretive Data was last revised on 2017. Lymphocyte pct 16.3 % [facility] Comment: Interpretive Data Percent cell count reference ranges are not reported, since discordance with absolute values may lead to misinterpretation of CBC data. Current Interpretive Data was last revised on 2017. Monocyte pct 14.3 % [facility] Comment: Interpretive Data Percent cell count reference ranges are not reported, since discordance with absolute values may lead to misinterpretation of CBC data. Current Interpretive Data was last revised on 2017. Eosinophil pct 5.1 % [facility] Comment: Interpretive Data Percent cell count reference ranges are not reported, since discordance with absolute values may lead to misinterpretation of CBC data. Current Interpretive Data was last revised on 2017. Basophil pct 0.5 % [facility] Comment: Interpretive Data Percent cell count reference ranges are not reported, since discordance with absolute values may lead to misinterpretation of CBC data. Current Interpretive Data was last revised on 2017. Blood 06/21/2022 9:55 PM CDT 06/21/2022 10:14 PM CDT us Catherine Adams MD LAB BLOOD ORDERABLES Final Result [facility] [place] [address] * (ABNORMAL) POCT glucose (06/21/2022 9:55 PM CDT) Glucose, POC 272(H) 70 - 199 mg/dL [facility] Blood 06/21/2022 9:55 PM CDT 06/21/2022 9:55 PM CDT Result [facility] Catherine Adams MD LAB POCT ORDERABLES - DEVIC E Final Result Performing Organization Address [facility] Co de Phone Number [facility] [place] [employer] [place] [address] * (ABNORMAL) CBC with auto differential (06/21/2022 9:55 PM CDT) [facility] WBC 5.9 3.8 - 9.9 K/cumm [facility] Hgb 7.5(L) 13.0 - 17.5 g/dL [facility] Hct 23.6(L) 38.9 - 50.3 % [facility] Plt 174 150 - 400 K/cumm [facility] MPV 9.7 9.1 - 12.3 fL [facility] RBC 2.51(L) 4.30 - 5.80 M/cumm [facility] MCV 94.0 81.3 - 96.4 fL [facility] MCH 29.9 27.1 - 33.3 pg [facility] MCHC 31.8(L) 32.3 - 35.7 g/dL [facility] RDW CV 18.9(H) 11.1 - 14.9 % [facility] RDW SD 60.0(H) 35.7 - 48.1 fL [facility] NRBC abs 0.02(H) 0.00 - 0.01 K/cumm [facility] Blood 06/21/2022 9:55 PM CDT 06/21/2022 10:14 PM CDT Catherine Adams MD LAB BLOOD ORDERABLES Final Result Performing Organization Address City/[facility]/ZIP Co de Phone Number [facility] [place] [address] * Lactate (06/21/2022 9:55 PM CDT) Lactate 0.8 0.7 - 2.0 mmol/L [facility] Blood 06/21/2022 9:55 PM CDT 06/21/2022 10:14 PM CDT Catherine Adams MD LAB BLOOD ORDERABLES Final Result [facility] [place] [address] * (ABNORMAL) Triglycerides (06/21/2022 9:55 PM CDT) Triglycerides 183(H) <=149 mg/dL [facility] Comment: Interpretive Data Ages < [...] CDT 06/21/2022 10:15 PM CDT Narrative [facility] - 06/21/2022 10:45 PM CDT While on propofol infusion. us Catherine Adams MD LAB BLOOD ORDERABLES Final Result Performing Organization Address [facility] Co de Phone Number [facility] [place] [address] * (ABNORMAL) Phosphorus (06/21/2022 9:55 PM CDT) Phosphorus, pl 4.8(H) 2.3 - 4.5 mg/dL [facility] Blood 06/21/2022 9:55 PM CDT 06/21/2022 10:15 PM CDT us Marcelina Lo SUCTION ROLLER LAB BLOOD ORDERABLES Final Re sult Performing Organization Address [facility] de Phone Number [facility] [place] [address] * (ABNORMAL) Lipase (06/21/2022 9:55 PM CDT) Lipase 227(H) 10 - 99 Units/L [facility] Blood 06/21/2022 9:55 PM CDT 06/21/2022 10:15 PM CDT Marcelina Lo SUCTION ROLLER LAB BLOOD ORDERABLES Final Re sult Performing Organization Address [facility] Co de Phone Number [facility] [place] [address] * (ABNORMAL) Magnesium (06/21/2022 9:55 PM CDT) Magnesium 2.8(H) 1.4 - 2.5 mg/dL [facility] Blood 06/21/2022 9:55 PM CDT 06/21/2022 10:14 PM CDT Marcelina Lo SUCTION ROLLER LAB BLOOD ORDERABLES Final Re sult Performing Organization Address [facility]/ZIP Co de Phone Number [facility] [place] [address] * (ABNORMAL) Comprehensive metabolic panel (06/21/2022 9:55 PM CDT) Sodium 136 135 - 145 mmol/L [facility] Potassium, pl 4.0 3.3 - 4.9 mmol/L [facility] Chloride 98 97 - 110 mmol/L [facility] CO2 24 22 - 32 mmol/L [facility] Anion gap 14 2 - 15 mmol/L [facility] BUN 41(H) 8 - 25 mg/dL [facility] Creatinine 6.03(H) 0.80 - 1.30 mg/dL [facility] Glucose 276(H) 70 - 199 mg/dL [facility] Comment: Interpretive Data Fasting glucose [...] 2017. Calcium 8.4(L) 8.5 - 10.3 mg/dL [facility] Bilirubin, total 0.5 0.1 - 1.2 mg/dL [facility] Protein, pl 5.9(L) 6.5 - 8.5 g/dL [facility] Albumin 2.7(L) 3.5 - 5.0 g/dL [facility] Alk phos 111 40 - 130 Units/L [facility] ALT 32 7 - 55 Units/L [facility] AST 48 10 - 50 Units/L [facility] Blood 06/21/2022 9:55 PM CDT 06/21/2022 10:14 PM CDT us Marcelina Lo SUCTION ROLLER LAB BLOOD ORDERABLES Final Re sult [facility] [place] [address] * (ABNORMAL) Differential, auto (06/21/2022 5:23 PM [...] [facility] Neutrophil pct 62.4 % [facility] Comment: Interpretive Data Percent cell count reference ranges are not reported, since discordance with absolute values may lead to misinterpretation of CBC data. Current Interpretive Data was last revised on 2017. Imm gran pct 0.8 % [facility] Comment: Interpretive Data Percent cell count reference ranges are not reported, since discordance with absolute values may lead to misinterpretation of CBC data. Current Interpretive Data was last revised on 2017. Lymphocyte pct 18.5 % [facility] Comment: Interpretive Data Percent cell count reference ranges are not reported, since discordance with absolute values may lead to misinterpretation of CBC data. Current Interpretive Data was last revised on 2017. Monocyte pct 13.7 % [facility] Comment: Interpretive Data Percent cell count reference ranges are not reported, since discordance with absolute values may lead to misinterpretation of CBC data. Current Interpretive Data was last revised on 2017. Eosinophil pct 4.0 % [facility] Comment: Interpretive Data Percent cell count reference ranges are not reported, since discordance with absolute values may lead to misinterpretation of CBC data. Current Interpretive Data was last revised on 2017. Basophil pct 0.6 % [facility] Comment: Interpretive Data Percent cell count reference ranges are not reported, since discordance with absolute values may lead to misinterpretation of CBC data. Current Interpretive Data was last revised on 2017. Blood 06/21/2022 5:23 PM CDT 06/21/2022 5:45 PM CDT Catherine Adams MD LAB BLOOD ORDERABLES Final Result Performing Organization Address [facility] Co de Phone Number [facility] Department [place] [address] * (ABNORMAL) CBC with auto differential (06/21/2022 5:23 PM CDT) Pathologist [facility] WBC 6.5 3.8 - 9.9 K/cumm [facility] Hgb 7.5(L) 13.0 - 17.5 g/dL [facility] Hct 23.0(L) 38.9 - 50.3 % [facility] Plt 177 150 - 400 K/cumm [facility] MPV 9.8 9.1 - 12.3 fL [facility] RBC 2.44(L) 4.30 - 5.80 M/cumm [facility] MCV 94.3 81.3 - 96.4 fL [facility] MCH 30.7 27.1 - 33.3 pg [facility] MCHC 32.6 32.3 - 35.7 g/dL [facility] RDW CV 19.0(H) 11.1 - 14.9 % [facility] RDW SD 60.9(H) 35.7 - 48.1 fL [facility] NRBC abs 0.00 0.00 - 0.01 K/cumm [facility] Blood 06/21/2022 5:23 PM CDT 06/21/2022 5:45 PM CDT Catherine Adams MD LAB BLOOD ORDERABLES Final Result Performing Organization Address City/[facility]/ZIP Co de Phone Number [facility] [place] [place] [address] * POCT glucose (06/21/2022 4:08 PM CDT) Glucose, POC 138 70 - 199 mg/dL [facility] Blood 06/21/2022 4:08 PM CDT 06/21/2022 4:08 PM CDT us Catherine Adams MD LAB POCT ORDERABLES - DEVIC E Final Result [facility] [place] [address] * [place] Modified Barium Swallow W Video [...] MD IMG FLUOROSCOPY PROCEDURES Final Result * HEAD TRANSFER CLERK Evaluate and Treat (VFSS) (06/21/2022 2:02 PM [...] reported General Information Adelia Garvin Jr. 06/21/22 HEAD TRANSFER CLERK Received On: 06/21/22 General Observations: presents alert, [...] Administered: Thin liquids (via spoon & straw), [place] thickened liquids (via spoon & straw), Purees, Honey thickened liquids via spoon, Solids. Patient took large sips requiring more than 1 swallow even when cued for small sip. Administered consistencies contain barium product. Thin Liquids: Laryngeal Penetration: Present Aspiration Present: No Penetration Aspiration Scale-Thin: 4-Material enters the airway, contacts the vocal folds and is ejected from the airway [place] Thickened Liquids: Laryngeal Penetration: Present Aspiration Present: No Penetration Aspiration Scale-[place]: 2-Material enters the airway, remains above the [...] treatment goals and details, if indicated. Plan HEAD TRANSFER CLERK Frequency of Services: 2-3x/wk HEAD TRANSFER CLERK Recommendation (Add'l Services): Inpatient Rehab Facility Next Visit Plan: treatment/therapy Additional Referrals: none at this time Discharge Summary Statement If this is the last swallow therapy visit, this serves as the discharge summary. us Catherine Adams MD HEAD TRANSFER CLERK ORDERABLES Final Resul t * POCT glucose (06/21/2022 12:00 PM CDT) Glucose, POC 157 70 - 199 mg/dL [facility] Blood 06/21/2022 12:0 0 PM CDT 06/21/2022 12:00 PM CDT us Catherine Adams MD LAB POCT ORDERABLES - DEVIC E Final Result Performing Organization Address City/State/[facility] Co de Phone Number [facility] [place] [address] * (ABNORMAL) eGFR (06/21/2022 8:38 AM CDT) eGFR 12(L) 90 - 130 mL/min/1. 73 m2 [facility] Comment: Interpretive Data Reference Interval [...] NP LAB BLOOD ORDERABLES Final Re sult [facility] [place] [address] * Differential, auto (06/21/2022 8:38 AM CDT) Neutrophil abs 3.3 1.7 - 6.5 K/cumm [facility] Imm gran abs 0.0 0.0 - 0.1 K/cumm [facility] Lymphocyte abs 1.2 0.8 - 3.3 K/cumm [facility] Monocyte abs 0.7 0.2 - 0.8 K/cumm [facility] Eosinophil abs 0.1 0.0 - 0.5 K/cumm [facility] Basophil abs 0.1 0.0 - 0.1 K/cumm [facility] Neutrophil pct 60.8 % [facility] Comment: Interpretive Data Percent cell count reference ranges are not reported, since discordance with absolute values may lead to misinterpretation of CBC data. Current Interpretive Data was last revised on 2017. Imm gran pct 0.7 % [facility] Comment: Interpretive Data Percent cell count reference ranges are not reported, since discordance with absolute values may lead to misinterpretation of CBC data. Current Interpretive Data was last revised on 2017. Lymphocyte pct 22.0 % [facility] Comment: Interpretive Data Percent cell count reference ranges are not reported, since discordance with absolute values may lead to misinterpretation of CBC data. Current Interpretive Data was last revised on 2017. Monocyte pct 13.7 % [facility] Comment: Interpretive Data Percent cell count reference ranges are not reported, since discordance with absolute values may lead to misinterpretation of CBC data. Current Interpretive Data was last revised on 2017. Eosinophil pct 1.9 % [facility] Comment: Interpretive Data Percent cell count reference ranges are not reported, since discordance with absolute values may lead to misinterpretation of CBC data. Current Interpretive Data was last revised on 2017. Basophil pct 0.9 % [facility] Comment: Interpretive Data Percent cell count reference ranges are not reported, since discordance with absolute values may lead to misinterpretation of CBC data. Current Interpretive Data was last revised on 2017. Blood 06/21/2022 8:38 AM CDT 06/21/2022 9:10 AM CDT Catherine Adams MD LAB BLOOD ORDERABLES Final Result Performing Organization Address City/[facility]/ZIP Co de Phone Number [facility] [place] [place] [address] * (ABNORMAL) CBC with auto differential (06/21/2022 8:38 AM CDT) [facility] WBC 5.4 3.8 - 9.9 K/cumm [facility] Hgb 9.0(L) 13.0 - 17.5 g/dL [facility] Hct 27.8(L) 38.9 - 50.3 % [facility] Plt 171 150 - 400 K/cumm [facility] MPV 9.8 9.1 - 12.3 fL [facility] RBC 3.01(L) 4.30 - 5.80 M/cumm [facility] MCV 92.4 81.3 - 96.4 fL [facility] MCH 29.9 27.1 - 33.3 pg [facility] MCHC 32.4 32.3 - 35.7 g/dL [facility] RDW CV 19.9(H) 11.1 - 14.9 % [facility] RDW SD 63.2(H) 35.7 - 48.1 fL [facility] NRBC abs 0.02(H) 0.00 - 0.01 K/cumm [facility] Blood 06/21/2022 8:38 AM CDT 06/21/2022 9:10 AM CDT Catherine Adams MD LAB BLOOD ORDERABLES Final Result Performing Organization Address City/[facility]/ZIP Co de Phone Number [facility] [place] [address] * (ABNORMAL) Magnesium (06/21/2022 8:38 AM CDT) Magnesium 2.8(H) 1.4 - 2.5 mg/dL [facility] Blood 06/21/2022 8:38 AM CDT 06/21/2022 9:10 AM CDT us Marcelina Lo SUCTION ROLLER LAB BLOOD ORDERABLES Final Re sult [facility] [place] [address] * (ABNORMAL) Comprehensive metabolic panel (06/21/2022 8:38 AM CDT) Sodium 139 135 - 145 mmol/L [facility] Potassium, pl 4.0 3.3 - 4.9 mmol/L [facility] Chloride 101 97 - 110 mmol/L [facility] CO2 27 22 - 32 mmol/L [facility] Anion gap 11 2 - 15 mmol/L [facility] BUN 36(H) 8 - 25 mg/dL [facility] Creatinine 5.26(H) 0.80 - 1.30 mg/dL [facility] Glucose 199 70 - 199 mg/dL [facility] Comment: Interpretive Data Fasting glucose [...] 2017. Calcium 8.4(L) 8.5 - 10.3 mg/dL [facility] Bilirubin, total 0.4 0.1 - 1.2 mg/dL [facility] Protein, pl 5.6(L) 6.5 - 8.5 g/dL [facility] Albumin 2.7(L) 3.5 - 5.0 g/dL [facility] Alk phos 115 40 - 130 Units/L [facility] ALT 28 7 - 55 Units/L [facility] AST 52(H) 10 - 50 Units/L [facility] Blood 06/21/2022 8:38 AM CDT 06/21/2022 9:10 AM CDT us Marcelina Lo SUCTION ROLLER LAB BLOOD ORDERABLES Final Re sult [facility] [place] [address] * POCT glucose (06/21/2022 8:34 AM CDT) Glucose, POC 199 70 - 199 mg/dL [facility] Blood 06/21/2022 8:34 AM CDT 06/21/2022 8:34 AM CDT us Catherine Adams MD LAB POCT ORDERABLES - DEVIC E Final Result Performing Organization Address [facility] Co de Phone Number [facility] Department [place] [place] [address] * (ABNORMAL) POCT glucose (06/21/2022 5:30 AM CDT) Glucose, POC 270(H) 70 - 199 mg/dL [facility] Blood 06/21/2022 5:30 AM CDT 06/21/2022 5:30 AM CDT us Catherine Adams MD LAB POCT ORDERABLES - DEVIC E Final Result Performing Organization Address [facility] Co de Phone Number [facility] [place] [address] * (ABNORMAL) POCT glucose (06/21/2022 12:22 AM CDT) Glucose, POC 231(H) 70 - 199 mg/dL [facility] Blood 06/21/2022 12:2 2 AM CDT 06/21/2022 12:22 AM CDT Catherine Adams MD LAB POCT ORDERABLES - DEVIC E Final Result [facility] [place] [address] * Differential, auto (06/21/2022 12:21 AM CDT) Pathologist [facility] Neutrophil abs 4.4 1.7 - 6.5 K/cumm [facility] Imm gran abs 0.1 0.0 - 0.1 K/cumm [facility] Lymphocyte abs 1.2 0.8 - 3.3 K/cumm [facility] Monocyte abs 0.8 0.2 - 0.8 K/cumm [facility] Eosinophil abs 0.1 0.0 - 0.5 K/cumm [facility] Basophil abs 0.0 0.0 - 0.1 K/cumm [facility] Neutrophil pct 67.5 % [facility] Comment: Interpretive Data Percent cell count reference ranges are not reported, since discordance with absolute values may lead to misinterpretation of CBC data. Current Interpretive Data was last revised on 2017. Imm gran pct 0.9 % [facility] Comment: Interpretive Data Percent cell count reference ranges are not reported, since discordance with absolute values may lead to misinterpretation of CBC data. Current Interpretive Data was last revised on 2017. Lymphocyte pct 18.3 % [facility] Comment: Interpretive Data Percent cell count reference ranges are not reported, since discordance with absolute values may lead to misinterpretation of CBC data. Current Interpretive Data was last revised on 2017. Monocyte pct 11.7 % [facility] Comment: Interpretive Data Percent cell count reference ranges are not reported, since discordance with absolute values may lead to misinterpretation of CBC data. Current Interpretive Data was last revised on 2017. Eosinophil pct 1.1 % [facility] Comment: Interpretive Data Percent cell count reference ranges are not reported, since discordance with absolute values may lead to misinterpretation of CBC data. Current Interpretive Data was last revised on 2017. Basophil pct 0.5 % [facility] Comment: Interpretive Data Percent cell count reference ranges are not reported, since discordance with absolute values may lead to misinterpretation of CBC data. Current Interpretive Data was last revised on 2017. Blood 06/21/2022 12:2 1 AM CDT 06/21/2022 12:50 AM CDT us Catherine Adams MD LAB BLOOD ORDERABLES Final Result [facility] [place] [address] * (ABNORMAL) CBC with auto differential (06/21/2022 12:21 AM CDT) Pathologist [facility] WBC 6.5 3.8 - 9.9 K/cumm [facility] Hgb 7.4(L) 13.0 - 17.5 g/dL [facility] Hct 23.6(L) 38.9 - 50.3 % [facility] Plt 179 150 - 400 K/cumm [facility] MPV 9.8 9.1 - 12.3 fL [facility] RBC 2.49(L) 4.30 - 5.80 M/cumm [facility] MCV 94.8 81.3 - 96.4 fL [facility] MCH 29.7 27.1 - 33.3 pg [facility] MCHC 31.4(L) 32.3 - 35.7 g/dL [facility] RDW CV 20.0(H) 11.1 - 14.9 % [facility] RDW SD 66.2(H) 35.7 - 48.1 fL [facility] NRBC abs 0.04(H) 0.00 - 0.01 K/cumm [facility] Blood 06/21/2022 12:2 1 AM CDT 06/21/2022 12:50 AM CDT Catherine Adams MD LAB BLOOD ORDERABLES Final Result Performing Organization Address City/[facility] Co de Phone Number [facility] [place] [address] * POCT glucose (06/20/2022 7:49 PM CDT) Pathologist [facility] Glucose, POC 177 70 - 199 mg/dL [facility] Blood 06/20/2022 7:49 PM CDT 06/20/2022 7:49 PM CDT Catherine Adams MD LAB POCT ORDERABLES - DEVIC E Final Result Performing Organization Address [facility] de Phone Number [facility] [place] [address] * (ABNORMAL) eGFR (06/20/2022 7:46 PM CDT) eGFR 18(L) 90 - 130 mL/min/1. 73 m2 [facility] Comment: Interpretive Data Reference Interval [...] 06/20/2022 8:15 PM CDT us Marcelina Lo SUCTION ROLLER LAB BLOOD ORDERABLES Final Re sult Performing Organization Address [facility] Co de Phone Number [facility] [place] [employer] [place] [address] * Lactate (06/20/2022 7:46 PM CDT) Lactate 1.0 0.7 - 2.0 mmol/L [facility] Blood 06/20/2022 7:46 PM CDT 06/20/2022 8:14 PM CDT Catherine Adams MD LAB BLOOD ORDERABLES Final Result Performing Organization Address [facility] de Phone Number [facility] [place] [employer] [place] [address] * (ABNORMAL) Triglycerides (06/20/2022 7:46 PM CDT) Triglycerides 181(H) <=149 mg/dL [facility] Comment: Interpretive Data Ages < [...] PM CDT 06/20/2022 8:14 PM CDT Narrative [facility] - 06/20/2022 8:51 PM CDT While on propofol infusion. us Catherine Adams MD LAB BLOOD ORDERABLES Final Result Performing Organization Address [facility] de Phone Number [facility] [place] [address] * Phosphorus (06/20/2022 7:46 PM CDT) Phosphorus, pl 2.9 2.3 - 4.5 mg/dL [facility] Comment:Repeated and Verifie d Blood 06/20/2022 7:46 PM CDT 06/20/2022 8:14 PM CDT us Marcelina Lo NP LAB BLOOD ORDERABLES Final Re sult Performing Organization Address [facility] Co de Phone Number [facility] [place] [address] * (ABNORMAL) Beta-hydroxybutyrate (06/20/2022 7:46 PM CDT) Beta-Hydroxybut yrate 2.5(H) 0.0 - 0.5 mmol/L [facility] Blood 06/20/2022 7:46 PM CDT 06/20/2022 8:59 PM CDT Marcelina Lo SUCTION ROLLER LAB BLOOD ORDERABLES Final Re sult Performing Organization Address City/[facility] Co de Phone Number [facility] [place] [address] * Lipase (06/20/2022 7:46 PM CDT) Pathologist [facility] Lipase 88 10 - 99 Units/L [facility] Blood 06/20/2022 7:46 PM CDT 06/20/2022 8:14 PM CDT Marcelina Lo SUCTION ROLLER LAB BLOOD ORDERABLES Final Re sult Performing Organization Address [facility] Co de Phone Number [facility] [place] [address] * (ABNORMAL) Magnesium (06/20/2022 7:46 PM CDT) [facility] Magnesium 2.6(H) 1.4 - 2.5 mg/dL [facility] Blood 06/20/2022 7:46 PM CDT 06/20/2022 8:15 PM CDT Marcelina Lo SUCTION ROLLER LAB BLOOD ORDERABLES Final Re sult Performing Organization Address [facility] Co de Phone Number [facility] [place] [address] * (ABNORMAL) Comprehensive metabolic panel (06/20/2022 7:46 PM CDT) [facility] Sodium 137 135 - 145 mmol/L [facility] Potassium, pl 4.9 3.3 - 4.9 mmol/L [facility] Chloride 102 97 - 110 mmol/L [facility] CO2 23 22 - 32 mmol/L [facility] Anion gap 12 2 - 15 mmol/L [facility] BUN 26(H) 8 - 25 mg/dL [facility] Creatinine 3.87(H) 0.80 - 1.30 mg/dL [facility] Glucose 188 70 - 199 mg/dL [facility] Comment: Interpretive Data Fasting glucose [...] 2017. Calcium 8.5 8.5 - 10.3 mg/dL [facility] Bilirubin, total 0.6 0.1 - 1.2 mg/dL [facility] Protein, pl 5.7(L) 6.5 - 8.5 g/dL [facility] Albumin 2.7(L) 3.5 - 5.0 g/dL [facility] Alk phos 123 40 - 130 Units/L [facility] ALT 29 7 - 55 Units/L [facility] AST 61(H) 10 - 50 Units/L [facility] Blood 06/20/2022 7:46 PM CDT 06/20/2022 8:15 PM CDT us Marcelina Lo SUCTION ROLLER LAB BLOOD ORDERABLES Final Re sult [facility] [place] [address] * (ABNORMAL) Differential, auto (06/20/2022 6:18 PM CDT) Neutrophil abs 6.2 1.7 - 6.5 K/cumm [facility] Imm gran abs 0.1 0.0 - 0.1 K/cumm [facility] Lymphocyte abs 0.9 0.8 - 3.3 K/cumm [facility] Monocyte abs 1.1(H) 0.2 - 0.8 K/cumm [facility] Eosinophil abs 0.0 0.0 - 0.5 K/cumm [facility] Basophil abs 0.0 0.0 - 0.1 K/cumm [facility] Neutrophil pct 74.5 % [facility] Comment: Interpretive Data Percent cell count reference ranges are not reported, since discordance with absolute values may lead to misinterpretation of CBC data. Current Interpretive Data was last revised on 2017. Imm gran pct 0.7 % [facility] Comment: Interpretive Data Percent cell count reference ranges are not reported, since discordance with absolute values may lead to misinterpretation of CBC data. Current Interpretive Data was last revised on 2017. Lymphocyte pct 11.0 % [facility] Comment: Interpretive Data Percent cell count reference ranges are not reported, since discordance with absolute values may lead to misinterpretation of CBC data. Current Interpretive Data was last revised on 2017. Monocyte pct 12.8 % [facility] Comment: Interpretive Data Percent cell count reference ranges are not reported, since discordance with absolute values may lead to misinterpretation of CBC data. Current Interpretive Data was last revised on 2017. Eosinophil pct 0.5 % [facility] Comment: Interpretive Data Percent cell count reference ranges are not reported, since discordance with absolute values may lead to misinterpretation of CBC data. Current Interpretive Data was last revised on 2017. Basophil pct 0.5 % [facility] Comment: Interpretive Data Percent cell count reference ranges are not reported, since discordance with absolute values may lead to misinterpretation of CBC data. Current Interpretive Data was last revised on 2017. Blood 06/20/2022 6:18 PM CDT 06/20/2022 7:08 PM CDT us Tyra De La Torre MD LAB BLOOD ORDERABLES Final Resu lt [facility] [place] [address] * (ABNORMAL) CBC with auto differential (06/20/2022 6:18 PM CDT) WBC 8.3 3.8 - 9.9 K/cumm [facility] Hgb 7.7(L) 13.0 - 17.5 g/dL [facility] Hct 23.7(L) 38.9 - 50.3 % [facility] Plt 188 150 - 400 K/cumm [facility] MPV 9.8 9.1 - 12.3 fL [facility] RBC 2.55(L) 4.30 - 5.80 M/cumm [facility] MCV 92.9 81.3 - 96.4 fL [facility] MCH 30.2 27.1 - 33.3 pg [facility] MCHC 32.5 32.3 - 35.7 g/dL [facility] RDW CV 20.1(H) 11.1 - 14.9 % [facility] RDW SD 64.8(H) 35.7 - 48.1 fL [facility] NRBC abs 0.04(H) 0.00 - 0.01 K/cumm [facility] Blood 06/20/2022 6:18 PM CDT 06/20/2022 7:08 PM CDT us Tyra De La Torre MD LAB BLOOD ORDERABLES Final Resu lt [facility] [place] [address] * POCT glucose (06/20/2022 3:53 PM CDT) [facility] Signature Glucose, POC 124 70 - 199 mg/dL [facility] Blood 06/20/2022 3:5 3 PM CDT 06/20/2022 3:53 PM CDT us Catherine Adams MD LAB POCT ORDERABLES - DEVIC E Final Result [facility] [place] [address] * (ABNORMAL) Differential, auto (06/20/2022 3:22 PM CDT) Neutrophil abs 4.7 1.7 - 6.5 K/cumm [facility] Imm gran abs 0.1 0.0 - 0.1 K/cumm [facility] Lymphocyte abs 1.4 0.8 - 3.3 K/cumm [facility] Monocyte abs 1.0(H) 0.2 - 0.8 K/cumm [facility] Eosinophil abs 0.0 0.0 - 0.5 K/cumm [facility] Basophil abs 0.1 0.0 - 0.1 K/cumm [facility] Neutrophil pct 64.5 % [facility] Comment: Interpretive Data Percent cell count reference ranges are not reported, since discordance with absolute values may lead to misinterpretation of CBC data. Current Interpretive Data was last revised on 2017. Imm gran pct 0.7 % [facility] Comment: Interpretive Data Percent cell count reference ranges are not reported, since discordance with absolute values may lead to misinterpretation of CBC data. Current Interpretive Data was last revised on 2017. Lymphocyte pct 19.4 % [facility] Comment: Interpretive Data Percent cell count reference ranges are not reported, since discordance with absolute values may lead to misinterpretation of CBC data. Current Interpretive Data was last revised on 2017. Monocyte pct 14.1 % [facility] Comment: Interpretive Data Percent cell count reference ranges are not reported, since discordance with absolute values may lead to misinterpretation of CBC data. Current Interpretive Data was last revised on 2017. Eosinophil pct 0.6 % [facility] Comment: Interpretive Data Percent cell count reference ranges are not reported, since discordance with absolute values may lead to misinterpretation of CBC data. Current Interpretive Data was last revised on 2017. Basophil pct 0.7 % [facility] Comment: Interpretive Data Percent cell count reference ranges are not reported, since discordance with absolute values may lead to misinterpretation of CBC data. Current Interpretive Data was last revised on 2017. Blood 06/20/2022 3:22 PM CDT 06/20/2022 3:55 PM CDT Catherine Adams MD LAB BLOOD ORDERABLES Final Result [facility] [place] [address] * (ABNORMAL) CBC with auto differential (06/20/2022 3:22 PM CDT) WBC 7.2 3.8 - 9.9 K/cumm [facility] Hgb 8.0(L) 13.0 - 17.5 g/dL [facility] Hct 24.5(L) 38.9 - 50.3 % [facility] Plt 207 150 - 400 K/cumm [facility] MPV 9.8 9.1 - 12.3 fL [facility] RBC 2.67(L) 4.30 - 5.80 M/cumm [facility] MCV 91.8 81.3 - 96.4 fL [facility] Comment:MCV delta due to zoie arent blood transfusion. MCH 30.0 27.1 - 33.3 pg [facility] MCHC 32.7 32.3 - 35.7 g/dL [facility] RDW CV 19.9(H) 11.1 - 14.9 % [facility] RDW SD 63.6(H) 35.7 - 48.1 fL [facility] NRBC abs 0.03(H) 0.00 - 0.01 K/cumm [facility] Blood 06/20/2022 3:22 PM CDT 06/20/2022 3:55 PM CDT Catherine Adams MD LAB BLOOD ORDERABLES Final Result [facility] [place] [address] * CT Chest Abdomen Pelvis WO Contrast [...] ORDERABLE S Final Result Performing Organization Address [facility] Co de Phone Number [facility] [place] [employer] [address] * Transfuse RBC: 1 Units (06/20/2022 12:05 PM CDT) Blood us Catherine Adams MD BLOOD TRANSFUSION ORDERABLE S Final Result * Prepare RBC: 1 Units (06/20/2022 9:35 AM CDT) Product code [id number] [facility] Unit Number [id number]-* [facility] Product Blood Type APOS [facility] Dispense Status RETURNED [facility] Blood 06/20/2022 9:35 AM CDT 06/20/2022 9:34 AM CDT Narrative [facility] - 06/20/2022 1:20 PM CDT Are special requirements needed? (All products are leukoreduced and CMV- safe)- >No Date required:-20220620 LRRBC # of [id number] Reasons:-Hgb <7 g/dL} us Catherine Adams MD BLOOD BANK PRODUCT ORDERABL ES Final Result Performing Organization Address [facility] Co de Phone Number [facility] [place] [address] * (ABNORMAL) eGFR (06/20/2022 8:24 AM CDT) Pathologist [facility] eGFR 21(L) 90 - 130 mL/min/1. 73 [...] 06/20/2022 8:48 AM CDT us Marcelina Lo SUCTION ROLLER LAB BLOOD ORDERABLES Final Re sult [facility] [place] [address] * (ABNORMAL) Differential, auto (06/20/2022 8:24 AM CDT) [facility] Neutrophil abs 5.1 1.7 - 6.5 K/cumm [facility] Imm gran abs 0.1 0.0 - 0.1 K/cumm [facility] Lymphocyte abs 1.6 0.8 - 3.3 K/cumm [facility] Monocyte abs 1.3(H) 0.2 - 0.8 K/cumm [facility] Eosinophil abs 0.1 0.0 - 0.5 K/cumm [facility] Basophil abs 0.1 0.0 - 0.1 K/cumm [facility] Neutrophil pct 62.3 % [facility] Comment: Interpretive Data Percent cell count reference ranges are not reported, since discordance with absolute values may lead to misinterpretation of CBC data. Current Interpretive Data was last revised on 2017. Imm gran pct 0.7 % [facility] Comment: Interpretive Data Percent cell count reference ranges are not reported, since discordance with absolute values may lead to misinterpretation of CBC data. Current Interpretive Data was last revised on 2017. Lymphocyte pct 19.9 % [facility] Comment: Interpretive Data Percent cell count reference ranges are not reported, since discordance with absolute values may lead to misinterpretation of CBC data. Current Interpretive Data was last revised on 2017. Monocyte pct 15.9 % [facility] Comment: Interpretive Data Percent cell count reference ranges are not reported, since discordance with absolute values may lead to misinterpretation of CBC data. Current Interpretive Data was last revised on 2017. Eosinophil pct 0.6 % [facility] Comment: Interpretive Data Percent cell count reference ranges are not reported, since discordance with absolute values may lead to misinterpretation of CBC data. Current Interpretive Data was last revised on 2017. Basophil pct 0.6 % [facility] Comment: Interpretive Data Percent cell count reference ranges are not reported, since discordance with absolute values may lead to misinterpretation of CBC data. Current Interpretive Data was last revised on 2017. Blood 06/20/2022 8:24 AM CDT 06/20/2022 8:48 AM CDT Catherine Adams MD LAB BLOOD ORDERABLES Final Result [facility] [place] [address] * (ABNORMAL) CBC with auto differential (06/20/2022 8:24 AM CDT) WBC 8.3 3.8 - 9.9 K/cumm [facility] Hgb 6.6(L) 13.0 - 17.5 g/dL [facility] Hct 20.7(L) 38.9 - 50.3 % [facility] Plt 271 150 - 400 K/cumm [facility] MPV 9.6 9.1 - 12.3 fL [facility] RBC 2.12(L) 4.30 - 5.80 M/cumm [facility] MCV 97.6(H) 81.3 - 96.4 fL [facility] MCH 31.1 27.1 - 33.3 pg [facility] MCHC 31.9(L) 32.3 - 35.7 g/dL [facility] RDW CV 17.4(H) 11.1 - 14.9 % [facility] RDW SD 59.6(H) 35.7 - 48.1 fL [facility] NRBC abs 0.00 0.00 - 0.01 K/cumm [facility] Blood 06/20/2022 8:24 AM CDT 06/20/2022 8:48 AM CDT Catherine Adams MD LAB BLOOD ORDERABLES Final Result [facility] [place] [address] * (ABNORMAL) Magnesium (06/20/2022 8:24 AM CDT) Magnesium 2.7(H) 1.4 - 2.5 mg/dL [facility] Blood 06/20/2022 8:24 AM CDT 06/20/2022 8:48 AM CDT us Marcelina Lo NP LAB BLOOD ORDERABLES Final Re sult [facility] [place] [address] * (ABNORMAL) Comprehensive metabolic panel (06/20/2022 8:24 AM CDT) Sodium 140 135 - 145 mmol/L [facility] Potassium, pl 4.9 3.3 - 4.9 mmol/L [facility] Chloride 104 97 - 110 mmol/L [facility] CO2 25 22 - 32 mmol/L [facility] Anion gap 11 2 - 15 mmol/L [facility] BUN 25 8 - 25 mg/dL [facility] Creatinine 3.43(H) 0.80 - 1.30 mg/dL [facility] Glucose 144 70 - 199 mg/dL [facility] Comment: Interpretive Data Fasting glucose [...] 2017. Calcium 8.4(L) 8.5 - 10.3 mg/dL [facility] Bilirubin, total 0.6 0.1 - 1.2 mg/dL [facility] Protein, pl 6.2(L) 6.5 - 8.5 g/dL [facility] Albumin 2.8(L) 3.5 - 5.0 g/dL [facility] Alk phos 143(H) 40 - 130 Units/L [facility] ALT 35 7 - 55 Units/L [facility] AST 79(H) 10 - 50 Units/L [facility] Blood 06/20/2022 8:24 AM CDT 06/20/2022 8:48 AM CDT us Marcelina Lo SUCTION ROLLER LAB BLOOD ORDERABLES Final Re sult Performing Organization Address [facility] Co de Phone Number [facility] [place] [address] * POCT glucose (06/20/2022 8:21 AM CDT) Glucose, POC 152 70 - 199 mg/dL [facility] Blood 06/20/2022 8:21 AM CDT 06/20/2022 8:21 AM CDT Catherine Adams MD LAB POCT ORDERABLES - DEVIC E Final Result Performing Organization Address [facility] de Phone Number [facility] [place] [address] * Transfuse RBC (06/20/2022 6:12 AM CDT) Blood Catherine Adams MD BLOOD TRANSFUSION ORDERABLE S Final Result Performing Organization Address [facility] de Phone Number [facility] [place] [address] * Transfuse RBC: 1 Units (06/20/2022 6:12 AM CDT) Blood Catherine Adams MD BLOOD TRANSFUSION ORDERABLE S Final Result * POCT glucose (06/20/2022 4:57 AM CDT) Glucose, POC 174 70 - 199 mg/dL [facility] Blood 06/20/2022 4:57 AM CDT 06/20/2022 4:57 AM CDT us Catherine Adams MD LAB POCT ORDERABLES - DEVIC E Final Result Performing Organization Address City/[facility]/ZIP Co de Phone Number [facility] [place] [address] * (ABNORMAL) Hemoglobin and hematocrit (06/20/2022 12:25 AM CDT) Pathologist [facility] Hgb 6.2(C) 13.0 - 17.5 g/dL [facility] Comment:Consistent with prev ious results Hct 19.8(L) 38.9 - 50.3 % [facility] Blood 06/20/2022 12:2 5 AM CDT 06/20/2022 12:37 AM CDT Meme Castro MD LAB BLOOD ORDERABLES Final Result Performing Organization Address [facility] Co de Phone Number [facility] [place] [address] * Type and screen (06/20/2022 12:23 AM CDT) [facility] Maribel, indirect Negative [facility] ABO Rh A Positive [facility] Blood 06/20/2022 12:2 3 AM CDT 06/20/2022 1:33 AM CDT Narrative [facility] - 06/20/2022 3:08 AM CDT Has the patient had Daratumumab or Isatuximab in the past 6 months?->Unknown Catherine Adams MD LAB BLOOD BANK TEST ORDERAB LES Final Result Performing Organization Address [facility]/ZIP Co de Phone Number [facility] [place] [address] * Prepare RBC: 1 Units (06/20/2022 12:15 AM CDT) [facility] Product code [id number] [facility] Unit Number [id number] [facility] Product Blood Type APOS [facility] Dispense Status PRESUMED TRANSFUSED [facility] Blood 06/20/2022 12:1 5 AM CDT 06/20/2022 12:16 AM CDT Narrative [facility] - 06/21/2022 12:50 AM CDT Are special requirements needed? (All products are leukoreduced and CMV- safe)- >No Date required:-20220620 LRRBC # of [id number] Reasons:-Hgb <7 g/dL} Catherine Adams MD BLOOD BANK PRODUCT ORDERABL ES Final Result Performing Organization Address [facility] de Phone Number [facility] [place] [address] * (ABNORMAL) POCT glucose (06/20/2022 12:01 AM CDT) Glucose, POC 206(H) 70 - 199 mg/dL [facility] Blood 06/20/2022 12:0 1 AM CDT 06/20/2022 12:01 AM CDT Result [facility] Catherine Adams MD LAB POCT ORDERABLES - DEVIC E Final Result Performing Organization Address [facility] de Phone Number [facility] [place] [address] * (ABNORMAL) Hemoglobin and hematocrit (06/19/2022 11:25 PM CDT) Hgb 6.2(C) 13.0 - 17.5 g/dL [facility] Comment:Critical result call ed to and read back by WON SHELBY RN on 06 20 2022 at 0010 to Precious Restrepo. Hct 19.5(L) 38.9 - 50.3 % [facility] Blood 06/19/2022 11:2 5 PM CDT 06/19/2022 11:42 PM CDT Meme Castro MD LAB BLOOD ORDERABLES Final Result Performing Organization Address [facility]/ZIP Co de Phone Number [facility] [place] [address] * POCT glucose (06/19/2022 8:55 PM CDT) [facility] Glucose, POC 161 70 - 199 mg/dL [facility] Blood 06/19/2022 8:55 PM CDT 06/19/2022 8:55 PM CDT us Catherine Adams MD LAB POCT ORDERABLES - DEVIC E Final Result Performing Organization Address [facility] de Phone Number [facility] [place] [address] * (ABNORMAL) eGFR (06/19/2022 8:54 PM CDT) [facility] eGFR 16(L) 90 - 130 mL/min/1. 73 m2 [facility] Comment: Interpretive Data Reference Interval [...] 06/19/2022 9:22 PM CDT us Marcelina Lo SUCTION ROLLER LAB BLOOD ORDERABLES Final Re sult [facility] [place] [address] * (ABNORMAL) Differential, auto (06/19/2022 8:54 PM CDT) Neutrophil abs 5.0 1.7 - 6.5 K/cumm [facility] Imm gran abs 0.1 0.0 - 0.1 K/cumm [facility] Lymphocyte abs 2.1 0.8 - 3.3 K/cumm [facility] Monocyte abs 1.2(H) 0.2 - 0.8 K/cumm [facility] Eosinophil abs 0.1 0.0 - 0.5 K/cumm [facility] Basophil abs 0.1 0.0 - 0.1 K/cumm [facility] Neutrophil pct 59.1 % [facility] Comment: Interpretive Data Percent cell count reference ranges are not reported, since discordance with absolute values may lead to misinterpretation of CBC data. Current Interpretive Data was last revised on 2017. Imm gran pct 0.7 % [facility] Comment: Interpretive Data Percent cell count reference ranges are not reported, since discordance with absolute values may lead to misinterpretation of CBC data. Current Interpretive Data was last revised on 2017. Lymphocyte pct 24.4 % [facility] Comment: Interpretive Data Percent cell count reference ranges are not reported, since discordance with absolute values may lead to misinterpretation of CBC data. Current Interpretive Data was last revised on 2017. Monocyte pct 13.7 % [facility] Comment: Interpretive Data Percent cell count reference ranges are not reported, since discordance with absolute values may lead to misinterpretation of CBC data. Current Interpretive Data was last revised on 2017. Eosinophil pct 1.3 % [facility] Comment: Interpretive Data Percent cell count reference ranges are not reported, since discordance with absolute values may lead to misinterpretation of CBC data. Current Interpretive Data was last revised on 2017. Basophil pct 0.8 % [facility] Comment: Interpretive Data Percent cell count reference ranges are not reported, since discordance with absolute values may lead to misinterpretation of CBC data. Current Interpretive Data was last revised on 2017. Blood 06/19/2022 8:54 PM CDT 06/19/2022 9:17 PM CDT Marcelina Lo SUCTION ROLLER LAB BLOOD ORDERABLES Final Re sult Performing Organization Address [facility] Co de Phone Number [facility] [place] [address] * (ABNORMAL) Blood gas, arterial (06/19/2022 8:54 PM CDT) pH, Art 7.45 7.35 - 7.45 [facility] PCO2, Arterial 32(L) 35 - 45 mmHg [facility] PO2, Arterial 75(L) 83 - 108 mmHg [facility] HCO3 Art (Calculated) 23 20 - 30 mmol/L [facility] BE, art -1 mmol/L [facility] Comment: Interpretive Data No Reference Range Established Current Interpretive Data was last revised on 2017 O2 Sat Art (Measured) 95 90 - 95 % [facility] Blood 06/19/2022 8:54 PM CDT 06/19/2022 9:17 PM CDT Marcelina Lo SUCTION ROLLER LAB BLOOD ORDERABLES Final Re sult Performing Organization Address [facility] Co de Phone Number [facility] [place] [address] * aPTT (06/19/2022 8:54 PM CDT) Pathologist [facility] aPTT 37 27 - 37 sec [facility] Comment: Interpretive Data Therapeutic heparin range: 60.0 - 94.0 seconds. Based on correlation with therapeutic heparin activity range of 0.3-0.7 Units/mL. Current interpretive data was last revised on 2020. Blood 06/19/2022 8:54 PM CDT 06/19/2022 9:30 PM CDT Narrative [facility] - 06/19/2022 9:38 PM CDT [...] BLOOD ORDERABLES Final Result Performing Organization Address City/[facility] Co de Phone Number [facility] [place] [address] * Lactate (06/19/2022 8:54 PM CDT) Lactate 1.3 0.7 - 2.0 mmol/L [facility] Blood 06/19/2022 8:54 PM CDT 06/19/2022 9:22 PM CDT Catherine Adams MD LAB BLOOD ORDERABLES Final Result Performing Organization Address City/[facility]/ZIP Co de Phone Number [facility] [place] [address] * (ABNORMAL) Beta-hydroxybutyrate (06/19/2022 8:54 PM CDT) Beta-Hydroxybut yrate 0.7(H) 0.0 - 0.5 mmol/L [facility] Blood 06/19/2022 8:54 PM CDT 06/19/2022 9:17 PM CDT Marcelina D. Lo SUCTION ROLLER LAB BLOOD ORDERABLES Final Re sult Performing Organization Address City/[facility]/ZIP Co de Phone Number [facility] [place] [address] * (ABNORMAL) Magnesium (06/19/2022 8:54 PM CDT) Pathologist [facility] Magnesium 2.7(H) 1.4 - 2.5 mg/dL [facility] Blood 06/19/2022 8:54 PM CDT 06/19/2022 9:22 PM CDT Marcelina Lo SUCTION ROLLER LAB BLOOD ORDERABLES Final Re sult Performing Organization Address [facility] Co de Phone Number [facility] [place] [address] * (ABNORMAL) Comprehensive metabolic panel (06/19/2022 8:54 PM CDT) [facility] Sodium 140 135 - 145 mmol/L [facility] Potassium, pl 4.8 3.3 - 4.9 mmol/L [facility] Chloride 102 97 - 110 mmol/L [facility] CO2 25 22 - 32 mmol/L [facility] Anion gap 13 2 - 15 mmol/L [facility] BUN 32(H) 8 - 25 mg/dL [facility] Creatinine 4.27(H) 0.80 - 1.30 mg/dL [facility] Glucose 148 70 - 199 mg/dL [facility] Comment: Interpretive Data Fasting glucose [...] 2017. Calcium 8.3(L) 8.5 - 10.3 mg/dL [facility] Bilirubin, total 0.5 0.1 - 1.2 mg/dL [facility] Protein, pl 6.1(L) 6.5 - 8.5 g/dL [facility] Albumin 2.9(L) 3.5 - 5.0 g/dL [facility] Alk phos 150(H) 40 - 130 Units/L [facility] ALT 32 7 - 55 Units/L [facility] AST 61(H) 10 - 50 Units/L [facility] Blood 06/19/2022 8:54 PM CDT 06/19/2022 9:22 PM CDT us Marcelina Lo NP LAB BLOOD ORDERABLES Final Re sult [facility] [place] [address] * (ABNORMAL) CBC with auto differential (06/19/2022 8:54 PM CDT) WBC 8.4 3.8 - 9.9 K/cumm [facility] Hgb 6.8(L) 13.0 - 17.5 g/dL [facility] Comment:No apparent cause fo r delta. called ashley sandoval MD Hct 20.5(L) 38.9 - 50.3 % [facility] Plt 255 150 - 400 K/cumm [facility] MPV 9.6 9.1 - 12.3 fL [facility] RBC 2.15(L) 4.30 - 5.80 M/cumm [facility] MCV 95.3 81.3 - 96.4 fL [facility] MCH 31.6 27.1 - 33.3 pg [facility] MCHC 33.2 32.3 - 35.7 g/dL [facility] RDW CV 16.5(H) 11.1 - 14.9 % [facility] RDW SD 55.8(H) 35.7 - 48.1 fL [facility] NRBC abs 0.03(H) 0.00 - 0.01 K/cumm [facility] Blood 06/19/2022 8:54 PM CDT 06/19/2022 9:17 PM CDT us Marcelina Lo SUCTION ROLLER LAB BLOOD ORDERABLES Final Re sult Performing Organization Address [facility] Co de Phone Number [facility] [place] [address] * (ABNORMAL) POCT glucose (06/19/2022 4:59 PM CDT) Glucose, POC 205(H) 70 - 199 mg/dL [facility] Blood 06/19/2022 4:59 PM CDT 06/19/2022 4:59 PM CDT us Catherine Adams MD LAB POCT ORDERABLES - DEVIC E Final Result Performing Organization Address [facility] de Phone Number [facility] [place] [address] * POCT glucose (06/19/2022 1:22 PM CDT) Glucose, POC 101 70 - 199 mg/dL [facility] Blood 06/19/2022 1:22 PM CDT 06/19/2022 1:22 PM CDT us Catherine Adams MD LAB POCT ORDERABLES - DEVIC E Final Result Performing Organization Address [facility] Co de Phone Number [facility] [address] * ECG 12 lead (06/19/2022 1:03 PM CDT) Ventricular Rate EKG/Min 126 BPM [facility] Atrial Rate 63 BPM [facility] QRS-Interval (MSEC) 106 ms [facility] QT-Interval (MSEC) 360 ms [facility] QTc 521 ms [facility] R [place] -53 degrees [facility] T [place] 125 degrees [facility] Diagnosis Atrial fibrillation with rapid ventricular response with premature ventricular or aberrantly conducted complexes Left axis deviation Poor precordial R wave progression Anterior infarct , age undetermined ST & T wave abnormality, consider lateral ischemia Abnormal ECG When compared with ECG of 18-JUN-2022 18:40, (unconfirmed) No significant change was found Confirmed by HUDSON SAL M.D ([id number]) on 06/22/2022 10:55:43 AM [facility] 06/19/2022 1:03 PM CDT 06/22/2022 10:55 AM CDT us Conrad Weston Chi, MD ECG ORDERABLES Final Res ult [facility] * US RUQ (06/19/2022 10:35 AM [...] * (ABNORMAL) eGFR (06/19/2022 9:09 AM CDT) [facility] eGFR 13(L) 90 - 130 mL/min/1. 73 m2 [facility] Comment: Interpretive Data Reference Interval [...] 06/19/2022 10:17 AM CDT us Marcelina Lo SUCTION ROLLER LAB BLOOD ORDERABLES Final Re sult [facility] [place] [address] * Differential, auto (06/19/2022 9:09 AM CDT) Neutrophil abs 2.8 1.7 - 6.5 K/cumm [facility] Imm gran abs 0.0 0.0 - 0.1 K/cumm [facility] Lymphocyte abs 1.2 0.8 - 3.3 K/cumm [facility] Monocyte abs 0.7 0.2 - 0.8 K/cumm [facility] Eosinophil abs 0.1 0.0 - 0.5 K/cumm [facility] Basophil abs 0.1 0.0 - 0.1 K/cumm [facility] Neutrophil pct 56.1 % [facility] Comment: Interpretive Data Percent cell count reference ranges are not reported, since discordance with absolute values may lead to misinterpretation of CBC data. Current Interpretive Data was last revised on 2017. Imm gran pct 0.8 % [facility] Comment: Interpretive Data Percent cell count reference ranges are not reported, since discordance with absolute values may lead to misinterpretation of CBC data. Current Interpretive Data was last revised on 2017. Lymphocyte pct 24.9 % [facility] Comment: Interpretive Data Percent cell count reference ranges are not reported, since discordance with absolute values may lead to misinterpretation of CBC data. Current Interpretive Data was last revised on 2017. Monocyte pct 14.2 % [facility] Comment: Interpretive Data Percent cell count reference ranges are not reported, since discordance with absolute values may lead to misinterpretation of CBC data. Current Interpretive Data was last revised on 2017. Eosinophil pct 2.8 % [facility] Comment: Interpretive Data Percent cell count reference ranges are not reported, since discordance with absolute values may lead to misinterpretation of CBC data. Current Interpretive Data was last revised on 2017. Basophil pct 1.2 % [facility] Comment: Interpretive Data Percent cell count reference ranges are not reported, since discordance with absolute values may lead to misinterpretation of CBC data. Current Interpretive Data was last revised on 2017. Blood 06/19/2022 9:09 AM CDT 06/19/2022 10:25 AM CDT us Marcelina Lo NP LAB BLOOD ORDERABLES Final Re sult [facility] [place] [address] * (ABNORMAL) Blood gas, arterial (06/19/2022 9:09 AM CDT) pH, Art 7.41 7.35 - 7.45 [facility] PCO2, Arterial 33(L) 35 - 45 mmHg [facility] PO2, Arterial 87 83 - 108 mmHg [facility] HCO3 Art (Calculated) 21 20 - 30 mmol/L [facility] BE, art -4 mmol/L [facility] Comment: Interpretive Data No Reference Range Established Current Interpretive Data was last revised on 2017 O2 Sat Art (Measured) 96(H) 90 - 95 % [facility] Blood 06/19/2022 9:09 AM CDT 06/19/2022 9:18 AM CDT Marcelina Lo SUCTION ROLLER LAB BLOOD ORDERABLES Final Re sult Performing Organization Address [facility] Co de Phone Number [facility] [place] [address] * (ABNORMAL) Magnesium (06/19/2022 9:09 AM CDT) Pathologist [facility] Magnesium 2.9(H) 1.4 - 2.5 mg/dL [facility] Blood 06/19/2022 9:09 AM CDT 06/19/2022 10:17 AM CDT Marcelina Lo SUCTION ROLLER LAB BLOOD ORDERABLES Final Re sult Performing Organization Address [facility] de Phone Number [facility] [place] [address] * (ABNORMAL) Comprehensive metabolic panel (06/19/2022 9:09 AM CDT) [facility] Sodium 137 135 - 145 mmol/L [facility] Potassium, pl 4.6 3.3 - 4.9 mmol/L [facility] Chloride 101 97 - 110 mmol/L [facility] CO2 23 22 - 32 mmol/L [facility] Anion gap 13 2 - 15 mmol/L [facility] BUN 35(H) 8 - 25 mg/dL [facility] Creatinine 5.02(H) 0.80 - 1.30 mg/dL [facility] Glucose 205(H) 70 - 199 mg/dL [facility] Comment: Interpretive Data Fasting glucose [...] 2017. Calcium 8.4(L) 8.5 - 10.3 mg/dL [facility] Bilirubin, total 0.4 0.1 - 1.2 mg/dL [facility] Protein, pl 6.1(L) 6.5 - 8.5 g/dL [facility] Albumin 2.9(L) 3.5 - 5.0 g/dL [facility] Alk phos 156(H) 40 - 130 Units/L [facility] ALT 32 7 - 55 Units/L [facility] AST 54(H) 10 - 50 Units/L [facility] Blood 06/19/2022 9:09 AM CDT 06/19/2022 10:17 AM CDT us Marcelina Lo SUCTION ROLLER LAB BLOOD ORDERABLES Final Re sult [facility] [place] [address] * (ABNORMAL) CBC with auto differential (06/19/2022 9:09 AM CDT) WBC 4.9 3.8 - 9.9 K/cumm [facility] Hgb 9.9(L) 13.0 - 17.5 g/dL [facility] Hct 31.5(L) 38.9 - 50.3 % [facility] Plt 237 150 - 400 K/cumm [facility] MPV 9.9 9.1 - 12.3 fL [facility] RBC 3.20(L) 4.30 - 5.80 M/cumm [facility] MCV 98.4(H) 81.3 - 96.4 fL [facility] MCH 30.9 27.1 - 33.3 pg [facility] MCHC 31.4(L) 32.3 - 35.7 g/dL [facility] RDW CV 16.4(H) 11.1 - 14.9 % [facility] RDW SD 57.2(H) 35.7 - 48.1 fL [facility] NRBC abs 0.00 0.00 - 0.01 K/cumm [facility] Blood 06/19/2022 9:09 AM CDT 06/19/2022 10:25 AM CDT us Marcelina Lo SUCTION ROLLER LAB BLOOD ORDERABLES Final Re sult Performing Organization Address City/[facility] Co de Phone Number [facility] [place] [address] * (ABNORMAL) POCT glucose (06/19/2022 9:08 AM CDT) [facility] Signature Glucose, POC 217(H) 70 - 199 mg/dL [facility] Blood 06/19/2022 9:08 AM CDT 06/19/2022 9:08 AM CDT us Catherine Adams MD LAB POCT ORDERABLES - DEVIC E Final Result Performing Organization Address [facility] Co de Phone Number [facility] [place] [address] * XR Chest 1 View (06/19/2022 5:51 AM CDT) Anatomical Region Laterality Modality Body, Chest N/A Computed Radiogr aphy 06/19/2022 7:34 AM CDT Impressions 06/19/2022 7:34 AM CDT Comparison made to 06/18/2022. ??Right internal jugular catheter tip overlies the superior vena cava. ??Nasogastric tube tip located below diaphragm, not included on the [id number]. ??A tracheal tube tip located within the [...] located below diaphragm, not included on the [id number]. A tracheal tube tip located within the [...] 13(L) 90 - 130 mL/min/1. 73 m2 [facility] Comment: Interpretive Data Reference Interval [...] CDT 06/18/2022 11:02 PM CDT Marcelina Lo SUCTION ROLLER LAB BLOOD ORDERABLES Final Re sult Performing Organization Address [facility] Co de Phone Number [facility] [place] [address] * Vancomycin level random (06/18/2022 10:50 PM CDT) Pathologist [facility] Vancomycin random 38.4 mcg/mL [facility] Comment: Interpretive Data No reference ranges have been established for random drug levels. Current Interpretive Data was last revised on 2020. Blood 06/18/2022 10:5 0 PM CDT 06/18/2022 10:59 PM CDT Catherine Adams MD LAB BLOOD ORDERABLES Final Result Performing Organization Address [facility] de Phone Number [facility] [place] [address] * (ABNORMAL) Differential, auto (06/18/2022 10:50 PM CDT) [facility] Neutrophil abs 5.0 1.7 - 6.5 K/cumm [facility] Imm gran abs 0.1 0.0 - 0.1 K/cumm [facility] Lymphocyte abs 1.7 0.8 - 3.3 K/cumm [facility] Monocyte abs 1.3(H) 0.2 - 0.8 K/cumm [facility] Eosinophil abs 0.2 0.0 - 0.5 K/cumm [facility] Basophil abs 0.1 0.0 - 0.1 K/cumm [facility] Neutrophil pct 60.3 % [facility] Comment: Interpretive Data Percent cell count reference ranges are not reported, since discordance with absolute values may lead to misinterpretation of CBC data. Current Interpretive Data was last revised on 2017. Imm gran pct 0.7 % [facility] Comment: Interpretive Data Percent cell count reference ranges are not reported, since discordance with absolute values may lead to misinterpretation of CBC data. Current Interpretive Data was last revised on 2017. Lymphocyte pct 20.4 % [facility] Comment: Interpretive Data Percent cell count reference ranges are not reported, since discordance with absolute values may lead to misinterpretation of CBC data. Current Interpretive Data was last revised on 2017. Monocyte pct 16.0 % [facility] Comment: Interpretive Data Percent cell count reference ranges are not reported, since discordance with absolute values may lead to misinterpretation of CBC data. Current Interpretive Data was last revised on 2017. Eosinophil pct 2.0 % [facility] Comment: Interpretive Data Percent cell count reference ranges are not reported, since discordance with absolute values may lead to misinterpretation of CBC data. Current Interpretive Data was last revised on 2017. Basophil pct 0.6 % [facility] Comment: Interpretive Data Percent cell count reference ranges are not reported, since discordance with absolute values may lead to misinterpretation of CBC data. Current Interpretive Data was last revised on 2017. Blood 06/18/2022 10:5 0 PM CDT 06/18/2022 10:59 PM CDT us Marcelina Lo SUCTION ROLLER LAB BLOOD ORDERABLES Final Re sult [facility] [place] [address] * Lactate (06/18/2022 10:50 PM CDT) Lactate 1.0 0.7 - 2.0 mmol/L [facility] Blood 06/18/2022 10:5 0 PM CDT 06/18/2022 11:02 PM CDT us Catherine Adams MD LAB BLOOD ORDERABLES Final Result [facility] [place] [address] * (ABNORMAL) Triglycerides (06/18/2022 10:50 PM CDT) Triglycerides 226(H) <=149 mg/dL [facility] Comment: Interpretive Data Ages < [...] PM CDT 06/18/2022 10:59 PM CDT Narrative [facility] - 06/18/2022 11:57 PM CDT While on propofol infusion. us Catherine Adams MD LAB BLOOD ORDERABLES Final Result [facility] [place] [address] * (ABNORMAL) Phosphorus (06/18/2022 10:50 PM CDT) Phosphorus, pl 5.2(H) 2.3 - 4.5 mg/dL [facility] Blood 06/18/2022 10:5 0 PM CDT 06/18/2022 10:59 PM CDT Marcelina Lo SUCTION ROLLER LAB BLOOD ORDERABLES Final Re sult Performing Organization Address [facility] de Phone Number [facility] [place] [address] * (ABNORMAL) Beta-hydroxybutyrate (06/18/2022 10:50 PM CDT) Beta-Hydroxybut yrate 1.3(H) 0.0 - 0.5 mmol/L [facility] Blood 06/18/2022 10:5 0 PM CDT 06/18/2022 10:59 PM CDT Marcelina Lo SUCTION ROLLER LAB BLOOD ORDERABLES Final Re sult Performing Organization Address [facility] de Phone Number [facility] [place] [address] * Lipase (06/18/2022 10:50 PM CDT) Lipase 22 10 - 99 Units/L [facility] Blood 06/18/2022 10:5 0 PM CDT 06/18/2022 10:59 PM CDT Marcelina Lo SUCTION ROLLER LAB BLOOD ORDERABLES Final Re sult Performing Organization Address [facility] de Phone Number [facility] [employer] [place] [address] * (ABNORMAL) Magnesium (06/18/2022 10:50 PM CDT) Magnesium 3.1(H) 1.4 - 2.5 mg/dL [facility] Blood 06/18/2022 10:5 0 PM CDT 06/18/2022 11:02 PM CDT us Marcelina Lo SUCTION ROLLER LAB BLOOD ORDERABLES Final Re sult [facility] [place] [address] * (ABNORMAL) Comprehensive metabolic panel (06/18/2022 10:50 PM CDT) Sodium 140 135 - 145 mmol/L [facility] Potassium, pl 4.3 3.3 - 4.9 mmol/L [facility] Chloride 103 97 - 110 mmol/L [facility] CO2 22 22 - 32 mmol/L [facility] Anion gap 15 2 - 15 mmol/L [facility] BUN 35(H) 8 - 25 mg/dL [facility] Creatinine 5.01(H) 0.80 - 1.30 mg/dL [facility] Glucose 199 70 - 199 mg/dL [facility] Comment: Interpretive Data Fasting glucose [...] Calcium 8.7 8.5 - 10.3 mg/dL [facility] Bilirubin, total 0.4 0.1 - 1.2 mg/dL [facility] Protein, pl 6.5 6.5 - 8.5 g/dL [facility] Albumin 2.8(L) 3.5 - 5.0 g/dL [facility] Alk phos 163(H) 40 - 130 Units/L [facility] ALT 34 7 - 55 Units/L [facility] AST 56(H) 10 - 50 Units/L [facility] Blood 06/18/2022 10:5 0 PM CDT 06/18/2022 11:02 PM CDT us Marcelina Lo SUCTION ROLLER LAB BLOOD ORDERABLES Final Re sult Performing Organization Address City/[facility]/ZIP Co de Phone Number [facility] [place] [address] * (ABNORMAL) CBC with auto differential (06/18/2022 10:50 PM CDT) [facility] WBC 8.4 3.8 - 9.9 K/cumm [facility] Hgb 7.5(L) 13.0 - 17.5 g/dL [facility] Hct 23.6(L) 38.9 - 50.3 % [facility] Plt 313 150 - 400 K/cumm [facility] MPV 9.8 9.1 - 12.3 fL [facility] RBC 2.41(L) 4.30 - 5.80 M/cumm [facility] MCV 97.9(H) 81.3 - 96.4 fL [facility] MCH 31.1 27.1 - 33.3 pg [facility] MCHC 31.8(L) 32.3 - 35.7 g/dL [facility] RDW CV 16.5(H) 11.1 - 14.9 % [facility] RDW SD 56.5(H) 35.7 - 48.1 fL [facility] NRBC abs 0.00 0.00 - 0.01 K/cumm [facility] Blood 06/18/2022 10:5 0 PM CDT 06/18/2022 10:59 PM CDT us Marcelina Lo SUCTION ROLLER LAB BLOOD ORDERABLES Final Re sult [facility] [place] [address] * (ABNORMAL) POCT glucose (06/18/2022 7:51 PM CDT) Pathologist [facility] Glucose, POC 256(H) 70 - 199 mg/dL [facility] Blood 06/18/2022 7:51 PM CDT 06/18/2022 7:51 PM CDT Catherine Adams MD LAB POCT ORDERABLES - DEVIC E Final Result Performing Organization Address [facility] Co de Phone Number [facility] [place] [address] * ECG 12 lead (06/18/2022 6:40 PM CDT) Ventricular Rate EKG/Min 133 BPM [facility] Atrial Rate 147 BPM [facility] QRS-Interval (MSEC) 102 ms [facility] QT-Interval (MSEC) 332 ms [facility] QTc 494 ms [facility] R [place] -43 degrees [facility] T [place] 123 degrees [facility] Diagnosis Atrial fibrillation with rapid ventricular response [...] anyterior leads Confirmed by KENN BILLINGSLEY M.D ([id number]) on 06/21/2022 1:28:53 PM [facility] 06/18/2022 6:40 PM CDT 06/21/2022 1:28 PM CDT Conrad Weston Chi, MD ECG ORDERABLES Final Res ult Performing Organization Address City/[facility]/ZIP Co de Phone Number [facility] * POCT glucose (06/18/2022 5:11 PM CDT) Pathologist [facility] Glucose, POC 168 70 - 199 mg/dL [facility] Blood 06/18/2022 5:11 PM CDT 06/18/2022 5:11 PM CDT Catherine Adams MD LAB POCT ORDERABLES - DEVIC E Final Result Performing Organization Address [facility]/ZIP Co de Phone Number [facility] [address] * POCT glucose (06/18/2022 4:16 PM CDT) Glucose, POC 181 70 - 199 mg/dL [facility] Blood 06/18/2022 4:16 PM CDT 06/18/2022 4:16 PM CDT Catherine Adams MD LAB POCT ORDERABLES - DEVIC E Final Result Performing Organization Address [facility] de Phone Number [facility] [place] [address] * (ABNORMAL) POCT glucose (06/18/2022 2:38 PM CDT) Glucose, POC 264(H) 70 - 199 mg/dL [facility] Blood 06/18/2022 2:38 PM CDT 06/18/2022 2:38 PM CDT Catherine Adams MD LAB POCT ORDERABLES - DEVIC E Final Result Performing Organization Address [facility] Co de Phone Number [facility] [place] [address] * (ABNORMAL) POCT glucose (06/18/2022 1:34 PM CDT) Glucose, POC 376(H) 70 - 199 mg/dL [facility] Blood 06/18/2022 1:34 PM CDT 06/18/2022 1:34 PM CDT Catherine Adams MD LAB POCT ORDERABLES - DEVIC E Final Result Performing Organization Address City/[facility] Co de Phone Number [facility] [place] [address] * (ABNORMAL) Beta-hydroxybutyrate (06/18/2022 1:32 PM CDT) Beta-Hydroxybut yrate 0.9(H) 0.0 - 0.5 mmol/L [facility] Blood 06/18/2022 1:32 PM CDT 06/18/2022 1:48 PM CDT us Catherine Adams MD LAB BLOOD ORDERABLES Final Result [facility] [place] [address] * IR Central Line Placement > 5 [...] was obtained. ??Prior to beginning the procedure, Caspar Protocol was used to confirm the patient's [...] was obtained. Prior to beginning the procedure, Caspar Protocol was used to confirm the patient's [...] POC 170 70 - 199 mg/dL [facility] Blood 06/18/2022 11:3 4 AM CDT 06/18/2022 11:34 AM CDT Catherine Adams MD LAB POCT ORDERABLES - DEVIC E Final Result Performing Organization Address City/[facility]/ZIP Co de Phone Number [facility] [place] [address] * (ABNORMAL) Blood gas, arterial (06/18/2022 10:14 AM CDT) pH, Art 7.36 7.35 - 7.45 [facility] PCO2, Arterial 37 35 - 45 mmHg [facility] PO2, Arterial 74(L) 83 - 108 mmHg [facility] HCO3 Art (Calculated) 21 20 - 30 mmol/L [facility] BE, art -4 mmol/L [facility] Comment: Interpretive Data No Reference Range Established Current Interpretive Data was last revised on 2017 O2 Sat Art (Measured) 94 90 - 95 % [facility] Blood 06/18/2022 10:1 4 AM CDT 06/18/2022 10:23 AM CDT Marcelina Lo NP LAB BLOOD ORDERABLES Final Re sult Performing Organization Address [facility]/ZIP Co de Phone Number [facility] [place] [employer] [address] * POCT glucose (06/18/2022 10:13 AM CDT) Glucose, POC 83 70 - 199 mg/dL [facility] Blood 06/18/2022 10:1 3 AM CDT 06/18/2022 10:13 AM CDT Catherine Adams MD LAB POCT ORDERABLES - DEVIC E Final Result Performing Organization Address City/[facility]/ZIP Co de Phone Number [facility] [place] [address] * (ABNORMAL) eGFR (06/18/2022 8:52 AM CDT) [...] LAB BLOOD ORDERABLES Final Re sult [facility] [place] [address] * Vancomycin level random (06/18/2022 8:52 AM CDT) Vancomycin random 51.8 mcg/mL [facility] Comment: Repeated on Dilution Interpretive Data No reference ranges have been established for random drug levels. Current Interpretive Data was last revised on 2020. Blood 06/18/2022 8:52 AM CDT 06/18/2022 8:58 AM CDT us Catherine Adams MD LAB BLOOD ORDERABLES Final Result [facility] [place] [address] * (ABNORMAL) Differential, auto (06/18/2022 8:52 AM CDT) Neutrophil abs 5.2 1.7 - 6.5 K/cumm [facility] Imm gran abs 0.1 0.0 - 0.1 K/cumm [facility] Lymphocyte abs 1.8 0.8 - 3.3 K/cumm [facility] Monocyte abs 1.6(H) 0.2 - 0.8 K/cumm [facility] Eosinophil abs 0.2 0.0 - 0.5 K/cumm [facility] Basophil abs 0.1 0.0 - 0.1 K/cumm [facility] Neutrophil pct 58.4 % [facility] Comment: Interpretive Data Percent cell count reference ranges are not reported, since discordance with absolute values may lead to misinterpretation of CBC data. Current Interpretive Data was last revised on 2017. Imm gran pct 1.0 % [facility] Comment: Interpretive Data Percent cell count reference ranges are not reported, since discordance with absolute values may lead to misinterpretation of CBC data. Current Interpretive Data was last revised on 2017. Lymphocyte pct 19.8 % [facility] Comment: Interpretive Data Percent cell count reference ranges are not reported, since discordance with absolute values may lead to misinterpretation of CBC data. Current Interpretive Data was last revised on 2017. Monocyte pct 17.5 % [facility] Comment: Interpretive Data Percent cell count reference ranges are not reported, since discordance with absolute values may lead to misinterpretation of CBC data. Current Interpretive Data was last revised on 2017. Eosinophil pct 2.6 % [facility] Comment: Interpretive Data Percent cell count reference ranges are not reported, since discordance with absolute values may lead to misinterpretation of CBC data. Current Interpretive Data was last revised on 2017. Basophil pct 0.7 % [facility] Comment: Interpretive Data Percent cell count reference ranges are not reported, since discordance with absolute values may lead to misinterpretation of CBC data. Current Interpretive Data was last revised on 2017. Blood 06/18/2022 8:52 AM CDT 06/18/2022 8:58 AM CDT Marcelina Lo SUCTION ROLLER LAB BLOOD ORDERABLES Final Re sult Performing Organization Address [facility] Co de Phone Number [facility] [place] [address] * (ABNORMAL) Magnesium (06/18/2022 8:52 AM CDT) Pathologist [facility] Magnesium 2.9(H) 1.4 - 2.5 mg/dL [facility] Blood 06/18/2022 8:52 AM CDT 06/18/2022 8:58 AM CDT Marcelina Lo SUCTION ROLLER LAB BLOOD ORDERABLES Final Re sult Performing Organization Address [facility] de Phone Number [facility] [place] [place] [address] * (ABNORMAL) Comprehensive metabolic panel (06/18/2022 8:52 AM CDT) Pathologist [facility] Sodium 143 135 - 145 mmol/L [facility] Potassium, pl 4.0 3.3 - 4.9 mmol/L [facility] Chloride 104 97 - 110 mmol/L [facility] CO2 23 22 - 32 mmol/L [facility] Anion gap 16(H) 2 - 15 mmol/L [facility] BUN 40(H) 8 - 25 mg/dL [facility] Creatinine 6.24(H) 0.80 - 1.30 mg/dL [facility] Glucose 116 70 - 199 mg/dL [facility] Comment: Interpretive Data Fasting glucose [...] 2017. Calcium 9.5 8.5 - 10.3 mg/dL [facility] Bilirubin, total 0.4 0.1 - 1.2 mg/dL [facility] Protein, pl 7.4 6.5 - 8.5 g/dL [facility] Albumin 3.3(L) 3.5 - 5.0 g/dL [facility] Alk phos 197(H) 40 - 130 Units/L [facility] ALT 36 7 - 55 Units/L [facility] AST 60(H) 10 - 50 Units/L [facility] Blood 06/18/2022 8:52 AM CDT 06/18/2022 8:58 AM CDT us Marcelina Lo SUCTION ROLLER LAB BLOOD ORDERABLES Final Re sult [facility] [place] [address] * (ABNORMAL) CBC with auto differential (06/18/2022 8:52 AM CDT) WBC 8.9 3.8 - 9.9 K/cumm [facility] Hgb 8.8(L) 13.0 - 17.5 g/dL [facility] Hct 27.1(L) 38.9 - 50.3 % [facility] Plt 283 150 - 400 K/cumm [facility] MPV 9.7 9.1 - 12.3 fL [facility] RBC 2.81(L) 4.30 - 5.80 M/cumm [facility] MCV 96.4 81.3 - 96.4 fL [facility] MCH 31.3 27.1 - 33.3 pg [facility] MCHC 32.5 32.3 - 35.7 g/dL [facility] RDW CV 16.2(H) 11.1 - 14.9 % [facility] RDW SD 54.0(H) 35.7 - 48.1 fL [facility] NRBC abs 0.00 0.00 - 0.01 K/cumm [facility] Blood 06/18/2022 8:52 AM CDT 06/18/2022 8:58 AM CDT us Marcelina Lo SUCTION ROLLER LAB BLOOD ORDERABLES Final Re sult Performing Organization Address City/[facility]/ZIP Co de Phone Number [facility] [place] [place] [address] * POCT glucose (06/18/2022 8:49 AM CDT) Glucose, POC 109 70 - 199 mg/dL [facility] Blood 06/18/2022 8:49 AM CDT 06/18/2022 8:49 AM CDT us Catherine Adams MD LAB POCT ORDERABLES - DEVIC E Final Result Performing Organization Address City/[facility] Co de Phone Number [facility] [place] [address] * POCT glucose (06/18/2022 6:53 AM CDT) Glucose, POC 145 70 - 199 mg/dL [facility] Blood 06/18/2022 6:53 AM CDT 06/18/2022 6:53 AM CDT us Catherine Adams MD LAB POCT ORDERABLES - DEVIC E Final Result Performing Organization Address City/[facility]/ZIP Co de Phone Number [facility] [place] [address] * POCT glucose (06/18/2022 6:11 AM CDT) Glucose, POC 164 70 - 199 mg/dL [facility] Blood 06/18/2022 6:11 AM CDT 06/18/2022 6:11 AM CDT Catherine Adams MD LAB POCT ORDERABLES - DEVIC E Final Result [facility] [place] [address] * XR Chest 1 View (06/18/2022 5:48 [...] CDT) aPTT 63(H) 27 - 37 sec [facility] Comment: Interpretive Data Therapeutic heparin range: 60.0 - 94.0 seconds. Based on correlation with therapeutic heparin activity range of 0.3-0.7 Units/mL. Current interpretive data was last revised on 2020. Blood 06/18/2022 5:13 AM CDT 06/18/2022 5:42 AM CDT Narrative [facility] - 06/18/2022 6:05 AM CDT Draw STAT PTT 6 hrs after initiation of heparin infusion, draw STAT PTT 6 hours after each dose/rate change, and every 6 hours until 2 consecutive PTTs are within therapeutic range. Once two consecutive PTT's are therapeutic (60-94.9 seconds), then draw PTT every AM until heparin is discontinued. Catherine Adams MD LAB BLOOD ORDERABLES Final Result [facility] [place] [address] * (ABNORMAL) Blood gas, arterial (06/18/2022 5:13 AM CDT) pH, Art 7.33(L) 7.35 - 7.45 [facility] PCO2, Arterial 39 35 - 45 mmHg [facility] PO2, Arterial 92 83 - 108 mmHg [facility] HCO3 Art (Calculated) 21 20 - 30 mmol/L [facility] BE, art -5 mmol/L [facility] Comment: Interpretive Data No Reference Range Established Current Interpretive Data was last revised on 2017 O2 Sat Art (Measured) 96(H) 90 - 95 % [facility] Blood 06/18/2022 5:13 AM CDT 06/18/2022 5:34 AM CDT us Marcelina Lo SUCTION ROLLER LAB BLOOD ORDERABLES Final Re sult Performing Organization Address City/[facility] Co de Phone Number [facility] [place] [address] * (ABNORMAL) POCT glucose (06/18/2022 5:10 AM CDT) Glucose, POC 205(H) 70 - 199 mg/dL [facility] Blood 06/18/2022 5:10 AM CDT 06/18/2022 5:10 AM CDT Catherine Adams MD LAB POCT ORDERABLES - DEVIC E Final Result Performing Organization Address [facility] Co de Phone Number [facility] [place] [address] * POCT glucose (06/18/2022 4:08 AM CDT) Glucose, POC 186 70 - 199 mg/dL [facility] Blood 06/18/2022 4:08 AM CDT 06/18/2022 4:08 AM CDT Catherine Adams MD LAB POCT ORDERABLES - DEVIC E Final Result Performing Organization Address City/[facility] Co de Phone Number [facility] [address] * POCT glucose (06/18/2022 3:24 AM CDT) Glucose, POC 179 70 - 199 mg/dL [facility] Blood 06/18/2022 3:24 AM CDT 06/18/2022 3:24 AM CDT us Catherine Adams MD LAB POCT ORDERABLES - DEVIC E Final Result Performing Organization Address [facility] de Phone Number [facility] [place] [address] * POCT glucose (06/18/2022 2:25 AM CDT) Glucose, POC 132 70 - 199 mg/dL [facility] Blood 06/18/2022 2:25 AM CDT 06/18/2022 2:25 AM CDT us Catherine Adams MD LAB POCT ORDERABLES - DEVIC E Final Result Performing Organization Address [facility] Phone Number [facility] [place] [address] * POCT glucose (06/18/2022 1:27 AM CDT) Glucose, POC 105 70 - 199 mg/dL [facility] Blood 06/18/2022 1:27 AM CDT 06/18/2022 1:27 AM CDT us Catherine Adams MD LAB POCT ORDERABLES - DEVIC E Final Result Performing Organization Address [facility] Phone Number [facility] [place] [address] * POCT glucose (06/17/2022 10:45 PM CDT) Glucose, POC 138 70 - 199 mg/dL [facility] Blood 06/17/2022 10:4 5 PM CDT 06/17/2022 10:45 PM CDT us Catherine Adams MD LAB POCT ORDERABLES - DEVIC E Final Result Performing Organization Address City/[facility] Co de Phone Number [facility] [place] [address] * (ABNORMAL) Hemoglobin and hematocrit (06/17/2022 10:31 PM CDT) [facility] Hgb 7.9(L) 13.0 - 17.5 g/dL [facility] Hct 24.0(L) 38.9 - 50.3 % [facility] Blood 06/17/2022 10:3 1 PM CDT 06/17/2022 10:45 PM CDT us Tyra De La Torre MD LAB BLOOD ORDERABLES Final Resu lt Performing Organization Address [facility] Co de Phone Number [facility] [place] [address] * Type and screen (06/17/2022 10:31 PM CDT) [facility] Maribel, indirect Negative [facility] ABO Rh A Positive [facility] Blood 06/17/2022 10:3 1 PM CDT 06/17/2022 10:53 PM CDT Narrative [facility] - 06/17/2022 11:49 PM CDT Has the patient had Daratumumab or Isatuximab in the past 6 months?->Unknown us Catherine Adams MD LAB BLOOD BANK TEST ORDERAB LES Final Result Performing Organization Address [facility] Co de Phone Number [facility] [place] [address] * (ABNORMAL) eGFR (06/17/2022 9:17 PM CDT) [facility] eGFR 11(L) 90 - 130 mL/min/1. 73 m2 [facility] Comment: Interpretive Data Reference Interval [...] BLOOD ORDERABLES Final Result Performing Organization Address City/[facility]/ZIP Co de Phone Number [facility] [place] [address] * (ABNORMAL) Magnesium (06/17/2022 9:17 PM CDT) Magnesium 2.9(H) 1.4 - 2.5 mg/dL [facility] Blood 06/17/2022 9:17 PM CDT 06/17/2022 9:27 PM CDT Catherine Adams MD LAB BLOOD ORDERABLES Final Result Performing Organization Address City/[facility] Co de Phone Number [facility] [place] [address] * (ABNORMAL) Comprehensive metabolic panel (06/17/2022 9:17 PM CDT) Sodium 142 135 - 145 mmol/L [facility] Potassium, pl 3.2(L) 3.3 - 4.9 mmol/L [facility] Chloride 104 97 - 110 mmol/L [facility] CO2 23 22 - 32 mmol/L [facility] Anion gap 15 2 - 15 mmol/L [facility] BUN 41(H) 8 - 25 mg/dL [facility] Creatinine 5.65(H) 0.80 - 1.30 mg/dL [facility] Glucose 121 70 - 199 mg/dL [facility] Comment: Interpretive Data Fasting glucose [...] 2017. Calcium 9.3 8.5 - 10.3 mg/dL [facility] Bilirubin, total 0.4 0.1 - 1.2 mg/dL [facility] Protein, pl 6.4(L) 6.5 - 8.5 g/dL [facility] Albumin 2.7(L) 3.5 - 5.0 g/dL [facility] Alk phos 181(H) 40 - 130 Units/L [facility] ALT 33 7 - 55 Units/L [facility] AST 52(H) 10 - 50 Units/L [facility] Blood 06/17/2022 9:17 PM CDT 06/17/2022 9:27 PM CDT us Catherine Adams MD LAB BLOOD ORDERABLES Final Result [facility] [place] [address] * (ABNORMAL) Differential, auto (06/17/2022 9:17 PM CDT) Neutrophil abs 4.5 1.7 - 6.5 K/cumm [facility] Imm gran abs 0.1 0.0 - 0.1 K/cumm [facility] Lymphocyte abs 1.5 0.8 - 3.3 K/cumm [facility] Monocyte abs 1.4(H) 0.2 - 0.8 K/cumm [facility] Eosinophil abs 0.3 0.0 - 0.5 K/cumm [facility] Basophil abs 0.0 0.0 - 0.1 K/cumm [facility] Neutrophil pct 58.5 % [facility] Comment: Interpretive Data Percent cell count reference ranges are not reported, since discordance with absolute values may lead to misinterpretation of CBC data. Current Interpretive Data was last revised on 2017. Imm gran pct 1.0 % [facility] Comment: Interpretive Data Percent cell count reference ranges are not reported, since discordance with absolute values may lead to misinterpretation of CBC data. Current Interpretive Data was last revised on 2017. Lymphocyte pct 19.0 % [facility] Comment: Interpretive Data Percent cell count reference ranges are not reported, since discordance with absolute values may lead to misinterpretation of CBC data. Current Interpretive Data was last revised on 2017. Monocyte pct 17.6 % [facility] Comment: Interpretive Data Percent cell count reference ranges are not reported, since discordance with absolute values may lead to misinterpretation of CBC data. Current Interpretive Data was last revised on 2017. Eosinophil pct 3.5 % [facility] Comment: Interpretive Data Percent cell count reference ranges are not reported, since discordance with absolute values may lead to misinterpretation of CBC data. Current Interpretive Data was last revised on 2017. Basophil pct 0.4 % [facility] Comment: Interpretive Data Percent cell count reference ranges are not reported, since discordance with absolute values may lead to misinterpretation of CBC data. Current Interpretive Data was last revised on 2017. Blood 06/17/2022 9:17 PM CDT 06/17/2022 9:26 PM CDT us Marcelina Lo NP LAB BLOOD ORDERABLES Final Re sult Performing Organization Address [facility] Co de Phone Number [facility] [place] [address] * Lactate (06/17/2022 9:17 PM CDT) Lactate 1.3 0.7 - 2.0 mmol/L [facility] Blood 06/17/2022 9:17 PM CDT 06/17/2022 9:29 PM CDT us Catherine Adams MD LAB BLOOD ORDERABLES Final Result Performing Organization Address [facility] de Phone Number [facility] [place] [address] * (ABNORMAL) Triglycerides (06/17/2022 9:17 PM CDT) Triglycerides 272(H) <=149 mg/dL [facility] Comment: Interpretive Data Ages < [...] PM CDT 06/17/2022 9:27 PM CDT Narrative [facility] - 06/17/2022 10:11 PM CDT While on propofol infusion. Catherine Adams MD LAB BLOOD ORDERABLES Final Result [facility] [place] [address] * (ABNORMAL) Phosphorus (06/17/2022 9:17 PM CDT) Phosphorus, pl 5.8(H) 2.3 - 4.5 mg/dL [facility] Blood 06/17/2022 9:17 PM CDT 06/17/2022 9:27 PM CDT Marcelina Lo SUCTION ROLLER LAB BLOOD ORDERABLES Final Re sult Performing Organization Address [facility] Co de Phone Number [facility] [place] [address] * Beta-hydroxybutyrate (06/17/2022 9:17 PM CDT) Beta-Hydroxybut yrate 0.1 0.0 - 0.5 mmol/L [facility] Blood 06/17/2022 9:17 PM CDT 06/17/2022 9:26 PM CDT Marcelina Lo SUCTION ROLLER LAB BLOOD ORDERABLES Final Re sult Performing Organization Address City/[facility]/ZIP Co de Phone Number [facility] [place] [address] * Lipase (06/17/2022 9:17 PM CDT) Pathologist [facility] Lipase 22 10 - 99 Units/L [facility] Blood 06/17/2022 9:17 PM CDT 06/17/2022 9:27 PM CDT Marcelina Lo SUCTION ROLLER LAB BLOOD ORDERABLES Final Re sult [facility] [place] [address] * (ABNORMAL) CBC with auto differential (06/17/2022 9:17 PM CDT) [facility] WBC 7.7 3.8 - 9.9 K/cumm [facility] Hgb 6.2(C) 13.0 - 17.5 g/dL [facility] Comment:Critical result call ed to and read back by MINERVA CLINTON RN on 06 17 2022 at 2214 to BRIAN BATES. Hct 19.1(L) 38.9 - 50.3 % [facility] Plt 300 150 - 400 K/cumm [facility] MPV 10.1 9.1 - 12.3 fL [facility] RBC 1.98(L) 4.30 - 5.80 M/cumm [facility] MCV 96.5(H) 81.3 - 96.4 fL [facility] MCH 31.3 27.1 - 33.3 pg [facility] MCHC 32.5 32.3 - 35.7 g/dL [facility] RDW CV 15.9(H) 11.1 - 14.9 % [facility] RDW SD 50.9(H) 35.7 - 48.1 fL [facility] NRBC abs 0.00 0.00 - 0.01 K/cumm [facility] Blood 06/17/2022 9:17 PM CDT 06/17/2022 9:26 PM CDT Marcelina Lo SUCTION ROLLER LAB BLOOD ORDERABLES Final Re sult [facility] [place] [address] * POCT glucose (06/17/2022 8:52 PM CDT) Glucose, POC 129 70 - 199 mg/dL [facility] Blood 06/17/2022 8:52 PM CDT 06/17/2022 8:52 PM CDT Catherine Adams MD LAB POCT ORDERABLES - DEVIC E Final Result Performing Organization Address City/[facility] Co de Phone Number [facility] [place] [address] * POCT glucose (06/17/2022 7:40 PM CDT) Glucose, POC 118 70 - 199 mg/dL [facility] Blood 06/17/2022 7:40 PM CDT 06/17/2022 7:40 PM CDT Catherine Adams MD LAB POCT ORDERABLES - DEVIC E Final Result Performing Organization Address City/[facility] Co de Phone Number [facility] [place] [address] * AR INSJ NON-TUNNELED CENTRAL VENOUS CATH AGE 3 YR/> (06/17/2022 7:30 PM CDT) Narrative Rufino Flores MD - 06/17/2022 7:30 PM CDT Aj Poe MD ? 06/17/2022 ??7:37 PM Central Line Insertion Date/Time: 06/17/2022 7:30 PM Performed by: Aj Poe MD Authorized by: Aj Poe MD Caspar Protocol: RN Notified of Procedure: yes ?? 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 and risks, [...] Glucose, POC 133 70 - 199 mg/dL [facility] Blood 06/17/2022 5:11 PM CDT 06/17/2022 5:11 PM CDT Catherine Adams MD LAB POCT ORDERABLES - DEVIC E Final Result [facility] [place] [address] * POCT glucose (06/17/2022 3:01 PM CDT) Glucose, POC 142 70 - 199 mg/dL [facility] Blood 06/17/2022 3:01 PM CDT 06/17/2022 3:01 PM CDT Catherine Adams MD LAB POCT ORDERABLES - DEVIC E Final Result Performing Organization Address City/[facility] Co de Phone Number [facility] [place] [employer] [address] * POCT glucose (06/17/2022 1:50 PM CDT) Glucose, POC 141 70 - 199 mg/dL [facility] Blood 06/17/2022 1:50 PM CDT 06/17/2022 1:50 PM CDT Catherine Adams MD LAB POCT ORDERABLES - DEVIC E Final Result Performing Organization Address [facility] Co de Phone Number [facility] [place] [employer] [address] * POCT glucose (06/17/2022 12:59 PM CDT) Glucose, POC 151 70 - 199 mg/dL [facility] Blood 06/17/2022 12:5 9 PM CDT 06/17/2022 12:59 PM CDT Catherine Adams MD LAB POCT ORDERABLES - DEVIC E Final Result Performing Organization Address City/[facility] de Phone Number [facility] [place] [employer] [address] * POCT glucose (06/17/2022 11:55 AM CDT) Glucose, POC 167 70 - 199 mg/dL [facility] Blood 06/17/2022 11:5 5 AM CDT 06/17/2022 11:55 AM CDT us Catherine Adams MD LAB POCT ORDERABLES - DEVIC E Final Result Performing Organization Address [facility] Co de Phone Number [facility] [address] * POCT glucose (06/17/2022 10:51 AM CDT) Glucose, POC 185 70 - 199 mg/dL [facility] Blood 06/17/2022 10:5 1 AM CDT 06/17/2022 10:51 AM CDT Catherine Adams MD LAB POCT ORDERABLES - DEVIC E Final Result Performing Organization Address [facility] de Phone Number [facility] [place] [address] * POCT glucose (06/17/2022 10:11 AM CDT) Glucose, POC 119 70 - 199 mg/dL [facility] Blood 06/17/2022 10:1 1 AM CDT 06/17/2022 10:11 AM CDT Catherine Adams MD LAB POCT ORDERABLES - DEVIC E Final Result Performing Organization Address City/[facility] [place] [address] * POCT glucose (06/17/2022 9:39 AM CDT) Glucose, POC 181 70 - 199 mg/dL [facility] Blood 06/17/2022 9:39 AM CDT 06/17/2022 9:39 AM CDT Catherine Adams MD LAB POCT ORDERABLES - DEVIC E Final Result Performing Organization Address [facility]/ZIP Co de Phone Number ALESSANDRA CARRION [facility] [place] [address] * Blood culture Blood (06/17/2022 8:13 AM CDT) Report Final Report: No growth [facility] Blood 06/17/2022 8:13 AM CDT 06/17/2022 8:24 [...] organism identification may be performed using the Sportmaniacsigene Gram-Positive Blood Culture Assay. This assay detects microbial DNA in positive blood culture broth via hybridization of target DNA to capture oligonucleotides on a microarray. This assay has been cleared by the [place] Food and Drug Administration and its performance characteristics have been verified by the [facility] Microbiology Laboratory. 5. ?For questions about this culture, contact the Microbiology Laboratory at [phone]. Interpretive data was last revised on 2020. Catherine Adams MD LAB MICROBIOLOGY - GENERAL ORDERABLES Final Result Performing Organization Address City/[facility] Co de Phone Number ALESSANDRA Wise [facility] [place] [address] * Blood culture Blood (06/17/2022 8:13 AM [...] organism identification may be performed using the Sportmaniacsigene Gram-Positive Blood Culture Assay. This assay detects microbial DNA in positive blood culture broth via hybridization of target DNA to capture oligonucleotides on a microarray. This assay has been cleared by the [place] Food and Drug Administration and its performance characteristics have been verified by the [facility] Microbiology Laboratory. 5. ?For questions about this culture, contact the Microbiology Laboratory at [phone]. Interpretive data was last revised on 2020. Catherine Adams MD LAB MICROBIOLOGY - GENERAL ORDERABLES Final Result [facility] CARRION [facility] [place] [address] * (ABNORMAL) eGFR (06/17/2022 8:02 AM CDT) eGFR 13(L) 90 - 130 mL/min/1. 73 m2 [facility] Comment: Interpretive Data Reference Interval [...] 06/17/2022 8:25 AM CDT us Marcelina Lo SUCTION ROLLER LAB BLOOD ORDERABLES Final Re sult [facility] [place] [address] * (ABNORMAL) Differential, auto (06/17/2022 8:02 AM CDT) [facility] Neutrophil abs 5.2 1.7 - 6.5 K/cumm [facility] Imm gran abs 0.1 0.0 - 0.1 K/cumm [facility] Lymphocyte abs 1.6 0.8 - 3.3 K/cumm [facility] Monocyte abs 1.3(H) 0.2 - 0.8 K/cumm [facility] Eosinophil abs 0.2 0.0 - 0.5 K/cumm [facility] Basophil abs 0.1 0.0 - 0.1 K/cumm [facility] Neutrophil pct 61.7 % [facility] Comment: Interpretive Data Percent cell count reference ranges are not reported, since discordance with absolute values may lead to misinterpretation of CBC data. Current Interpretive Data was last revised on 2017. Imm gran pct 1.3 % [facility] Comment: Interpretive Data Percent cell count reference ranges are not reported, since discordance with absolute values may lead to misinterpretation of CBC data. Current Interpretive Data was last revised on 2017. Lymphocyte pct 18.6 % [facility] Comment: Interpretive Data Percent cell count reference ranges are not reported, since discordance with absolute values may lead to misinterpretation of CBC data. Current Interpretive Data was last revised on 2017. Monocyte pct 15.2 % [facility] Comment: Interpretive Data Percent cell count reference ranges are not reported, since discordance with absolute values may lead to misinterpretation of CBC data. Current Interpretive Data was last revised on 2017. Eosinophil pct 2.6 % [facility] Comment: Interpretive Data Percent cell count reference ranges are not reported, since discordance with absolute values may lead to misinterpretation of CBC data. Current Interpretive Data was last revised on 2017. Basophil pct 0.6 % [facility] Comment: Interpretive Data Percent cell count reference ranges are not reported, since discordance with absolute values may lead to misinterpretation of CBC data. Current Interpretive Data was last revised on 2017. Blood 06/17/2022 8:02 AM CDT 06/17/2022 8:25 AM CDT us Marcelina Lo SUCTION ROLLER LAB BLOOD ORDERABLES Final Re sult [facility] [place] [address] * (ABNORMAL) Magnesium (06/17/2022 8:02 AM CDT) Magnesium 2.9(H) 1.4 - 2.5 mg/dL [facility] Blood 06/17/2022 8:02 AM CDT 06/17/2022 8:25 AM CDT us Marcelina Lo SUCTION ROLLER LAB BLOOD ORDERABLES Final Re sult [facility] [place] [address] * (ABNORMAL) Comprehensive metabolic panel (06/17/2022 8:02 AM CDT) Sodium 140 135 - 145 mmol/L [facility] Potassium, pl 3.9 3.3 - 4.9 mmol/L [facility] Chloride 104 97 - 110 mmol/L [facility] CO2 24 22 - 32 mmol/L [facility] Anion gap 12 2 - 15 mmol/L [facility] BUN 41(H) 8 - 25 mg/dL [facility] Creatinine 5.16(H) 0.80 - 1.30 mg/dL [facility] Glucose 206(H) 70 - 199 mg/dL [facility] Comment: Interpretive Data Fasting glucose [...] 2017. Calcium 9.1 8.5 - 10.3 mg/dL [facility] Bilirubin, total 0.4 0.1 - 1.2 mg/dL [facility] Protein, pl 6.9 6.5 - 8.5 g/dL [facility] Albumin 3.0(L) 3.5 - 5.0 g/dL [facility] Alk phos 199(H) 40 - 130 Units/L [facility] ALT 35 7 - 55 Units/L [facility] AST 43 10 - 50 Units/L [facility] Blood 06/17/2022 8:02 AM CDT 06/17/2022 8:25 AM CDT Marcelina Lo SUCTION ROLLER LAB BLOOD ORDERABLES Final Re sult Performing Organization Address City/[facility]/ZIP Co de Phone Number [facility] [place] [address] * (ABNORMAL) CBC with auto differential (06/17/2022 8:02 AM CDT) WBC 8.5 3.8 - 9.9 K/cumm [facility] Hgb 7.9(L) 13.0 - 17.5 g/dL [facility] Hct 24.6(L) 38.9 - 50.3 % [facility] Plt 262 150 - 400 K/cumm [facility] MPV 10.1 9.1 - 12.3 fL [facility] RBC 2.55(L) 4.30 - 5.80 M/cumm [facility] MCV 96.5(H) 81.3 - 96.4 fL [facility] MCH 31.0 27.1 - 33.3 pg [facility] MCHC 32.1(L) 32.3 - 35.7 g/dL [facility] RDW CV 15.6(H) 11.1 - 14.9 % [facility] RDW SD 49.9(H) 35.7 - 48.1 fL [facility] NRBC abs 0.00 0.00 - 0.01 K/cumm [facility] Blood 06/17/2022 8:02 AM CDT 06/17/2022 8:25 AM CDT Marcelina Lo SUCTION ROLLER LAB BLOOD ORDERABLES Final Re sult Performing Organization Address City/[facility]/ZIP Co de Phone Number [facility] [place] [address] * (ABNORMAL) POCT glucose (06/17/2022 7:37 AM CDT) [facility] Glucose, POC 202(H) 70 - 199 mg/dL [facility] Blood 06/17/2022 7:37 AM CDT 06/17/2022 7:37 AM CDT Catherine Adams MD LAB POCT ORDERABLES - DEVIC E Final Result Performing Organization Address City/[facility]/[place] [address] * (ABNORMAL) aPTT (06/17/2022 6:14 AM CDT) [facility] aPTT 64(H) 27 - 37 sec [facility] Comment: Interpretive Data Therapeutic heparin range: 60.0 - 94.0 seconds. Based on correlation with therapeutic heparin activity range of 0.3-0.7 Units/mL. Current interpretive data was last revised on 2020. Blood 06/17/2022 6:14 AM CDT 06/17/2022 7:27 AM CDT Narrative [facility] - 06/17/2022 7:50 AM CDT [...] Adams MD LAB BLOOD ORDERABLES Final Result [facility] [place] [address] * (ABNORMAL) POCT glucose (06/17/2022 6:13 AM CDT) [facility] Glucose, POC 234(H) 70 - 199 mg/dL [facility] Blood 06/17/2022 6:13 AM CDT 06/17/2022 6:13 AM CDT us Catherine Adams MD LAB POCT ORDERABLES - DEVIC E Final Result [facility] [place] [address] * XR Chest 1 View (06/17/2022 5:29 [...] Glucose, POC 176 70 - 199 mg/dL [facility] Blood 06/17/2022 4:53 AM CDT 06/17/2022 4:53 AM CDT Catherine Adams MD LAB POCT ORDERABLES - DEVIC E Final Result Performing Organization Address [facility] de Phone Number [facility] [place] [address] * (ABNORMAL) Blood gas, arterial (06/17/2022 3:46 AM CDT) [facility] pH, Art 7.32(L) 7.35 - 7.45 [facility] PCO2, Arterial 44 35 - 45 mmHg [facility] PO2, Arterial 93 83 - 108 mmHg [facility] HCO3 Art (Calculated) 24 20 - 30 mmol/L [facility] BE, art -3 mmol/L [facility] Comment: Interpretive Data No Reference Range Established Current Interpretive Data was last revised on 2017 O2 Sat Art (Measured) 96(H) 90 - 95 % [facility] Blood 06/17/2022 3:46 AM CDT 06/17/2022 3:52 AM CDT Marcelina Lo NP LAB BLOOD ORDERABLES Final Re sult Performing Organization Address [facility] de Phone Number [facility] [place] [address] * POCT glucose (06/17/2022 3:44 AM CDT) Glucose, POC 94 70 - 199 mg/dL [facility] Blood 06/17/2022 3:44 AM CDT 06/17/2022 3:44 AM CDT us Catherine Adams MD LAB POCT ORDERABLES - DEVIC E Final Result Performing Organization Address City/[facility] Co de Phone Number [facility] [place] [employer] [address] * POCT glucose (06/17/2022 2:52 AM CDT) Glucose, POC 119 70 - 199 mg/dL [facility] Blood 06/17/2022 2:52 AM CDT 06/17/2022 2:52 AM CDT Catherine Adams MD LAB POCT ORDERABLES - DEVIC E Final Result Performing Organization Address City/[facility] Co de Phone Number [facility] [place] [address] * POCT glucose (06/17/2022 1:52 AM CDT) Glucose, POC 127 70 - 199 mg/dL [facility] Blood 06/17/2022 1:52 AM CDT 06/17/2022 1:52 AM CDT Catherine Adams MD LAB POCT ORDERABLES - DEVIC E Final Result Performing Organization Address City/[facility] Co de Phone Number [facility] [place] [employer] [address] * POCT glucose (06/17/2022 12:36 AM CDT) Glucose, POC 165 70 - 199 mg/dL [facility] Blood 06/17/2022 12:3 6 AM CDT 06/17/2022 12:36 AM CDT Catherine Adams MD LAB POCT ORDERABLES - DEVIC E Final Result Performing Organization Address [facility] Co de Phone Number [facility] [place] [address] * (ABNORMAL) aPTT (06/17/2022 12:36 AM CDT) aPTT 67(H) 27 - 37 sec [facility] Comment: Interpretive Data Therapeutic heparin range: 60.0 - 94.0 seconds. Based on correlation with therapeutic heparin activity range of 0.3-0.7 Units/mL. Current interpretive data was last revised on 2020. Blood 06/17/2022 12:3 6 AM CDT 06/17/2022 1:04 AM CDT Narrative [facility] - 06/17/2022 1:09 AM CDT [...] BLOOD ORDERABLES Final Result Performing Organization Address [facility] de Phone Number [facility] [place] [address] * (ABNORMAL) Blood gas, arterial (06/16/2022 11:19 PM CDT) pH, Art 7.38 7.35 - 7.45 [facility] PCO2, Arterial 37 35 - 45 mmHg [facility] PO2, Arterial 99 83 - 108 mmHg [facility] HCO3 Art (Calculated) 22 20 - 30 mmol/L [facility] BE, art -3 mmol/L [facility] Comment: Interpretive Data No Reference Range Established Current Interpretive Data was last revised on 2017 O2 Sat Art (Measured) 97(H) 90 - 95 % [facility] Blood 06/16/2022 11:1 9 PM CDT 06/16/2022 11:24 PM CDT Marcelina Lo NP LAB BLOOD ORDERABLES Final Re sult Performing Organization Address [facility] Co de Phone Number [facility] [place] [employer] [place] [address] * POCT glucose (06/16/2022 11:11 PM CDT) Glucose, POC 172 70 - 199 mg/dL [facility] Blood 06/16/2022 11:1 1 PM CDT 06/16/2022 11:11 PM CDT Catherine Adams MD LAB POCT ORDERABLES - DEVIC E Final Result Performing Organization Address [facility] Co de Phone Number [facility] [place] [employer] [address] * POCT glucose (06/16/2022 10:07 PM CDT) Glucose, POC 166 70 - 199 mg/dL [facility] Blood 06/16/2022 10:0 7 PM CDT 06/16/2022 10:07 PM CDT Catherine Adams MD LAB POCT ORDERABLES - DEVIC E Final Result Performing Organization Address City/[facility] Co de Phone Number [facility] [place] [employer] [address] * XR Chest 1 View (06/16/2022 9:03 [...] * (ABNORMAL) eGFR (06/16/2022 8:52 PM CDT) [facility] eGFR 14(L) 90 - 130 mL/min/1. 73 m2 [facility] Comment: Interpretive Data Reference Interval Normal ?>/= [...] 06/16/2022 9:10 PM CDT us Marcelina Lo SUCTION ROLLER LAB BLOOD ORDERABLES Final Re sult [facility] [place] [address] * (ABNORMAL) Differential, auto (06/16/2022 8:52 PM CDT) Neutrophil abs 5.4 1.7 - 6.5 K/cumm [facility] Imm gran abs 0.2(H) 0.0 - 0.1 K/cumm [facility] Lymphocyte abs 1.0 0.8 - 3.3 K/cumm [facility] Monocyte abs 1.1(H) 0.2 - 0.8 K/cumm [facility] Eosinophil abs 0.2 0.0 - 0.5 K/cumm [facility] Basophil abs 0.0 0.0 - 0.1 K/cumm [facility] Neutrophil pct 68.6 % [facility] Comment: Interpretive Data Percent cell count reference ranges are not reported, since discordance with absolute values may lead to misinterpretation of CBC data. Current Interpretive Data was last revised on 2017. Imm gran pct 2.0 % [facility] Comment: Interpretive Data Percent cell count reference ranges are not reported, since discordance with absolute values may lead to misinterpretation of CBC data. Current Interpretive Data was last revised on 2017. Lymphocyte pct 12.9 % [facility] Comment: Interpretive Data Percent cell count reference ranges are not reported, since discordance with absolute values may lead to misinterpretation of CBC data. Current Interpretive Data was last revised on 2017. Monocyte pct 14.3 % [facility] Comment: Interpretive Data Percent cell count reference ranges are not reported, since discordance with absolute values may lead to misinterpretation of CBC data. Current Interpretive Data was last revised on 2017. Eosinophil pct 1.9 % [facility] Comment: Interpretive Data Percent cell count reference ranges are not reported, since discordance with absolute values may lead to misinterpretation of CBC data. Current Interpretive Data was last revised on 2017. Basophil pct 0.3 % [facility] Comment: Interpretive Data Percent cell count reference ranges are not reported, since discordance with absolute values may lead to misinterpretation of CBC data. Current Interpretive Data was last revised on 2017. Blood 06/16/2022 8:52 PM CDT 06/16/2022 9:02 PM CDT us Marcelina Lo NP LAB BLOOD ORDERABLES Final Re sult [facility] [place] [address] * Lactate (06/16/2022 8:52 PM CDT) Lactate 1.1 0.7 - 2.0 mmol/L [facility] Blood 06/16/2022 8:52 PM CDT 06/16/2022 9:10 PM CDT us Catherine Adams MD LAB BLOOD ORDERABLES Final Result [facility] [place] [address] * (ABNORMAL) Triglycerides (06/16/2022 8:52 PM CDT) Triglycerides 253(H) <=149 mg/dL [facility] Comment: Interpretive Data Ages < [...] PM CDT 06/16/2022 9:10 PM CDT Narrative [facility] - 06/16/2022 9:44 PM CDT While on propofol infusion. us Catherine Adams MD LAB BLOOD ORDERABLES Final Result Performing Organization Address [facility] Co de Phone Number [facility] [place] [address] * (ABNORMAL) Phosphorus (06/16/2022 8:52 PM CDT) Phosphorus, pl 5.4(H) 2.3 - 4.5 mg/dL [facility] Blood 06/16/2022 8:52 PM CDT 06/16/2022 9:10 PM CDT Marcelina Lo SUCTION ROLLER LAB BLOOD ORDERABLES Final Re sult Performing Organization Address [facility] de Phone Number [facility] [place] [address] * Beta-hydroxybutyrate (06/16/2022 8:52 PM CDT) Beta-Hydroxybut yrate 0.1 0.0 - 0.5 mmol/L [facility] Blood 06/16/2022 8:52 PM CDT 06/16/2022 9:02 PM CDT Marcelina Lo SUCTION ROLLER LAB BLOOD ORDERABLES Edited R esult - Final Performing Organization Address [facility] Co de Phone Number [facility] [place] [employer] [place] [address] * Lipase (06/16/2022 8:52 PM CDT) Lipase 26 10 - 99 Units/L [facility] Blood 06/16/2022 8:52 PM CDT 06/16/2022 9:10 PM CDT us Marcelina Lo SUCTION ROLLER LAB BLOOD ORDERABLES Final Re sult Performing Organization Address [facility] de Phone Number [facility] [employer] [address] * (ABNORMAL) Magnesium (06/16/2022 8:52 PM CDT) Magnesium 3.0(H) 1.4 - 2.5 mg/dL [facility] Blood 06/16/2022 8:52 PM CDT 06/16/2022 9:10 PM CDT us Marcelina Lo SUCTION ROLLER LAB BLOOD ORDERABLES Final Re sult [facility] [place] [address] * (ABNORMAL) Comprehensive metabolic panel (06/16/2022 8:52 PM CDT) Sodium 140 135 - 145 mmol/L [facility] Potassium, pl 4.0 3.3 - 4.9 mmol/L [facility] Chloride 104 97 - 110 mmol/L [facility] CO2 25 22 - 32 mmol/L [facility] Anion gap 11 2 - 15 mmol/L [facility] BUN 36(H) 8 - 25 mg/dL [facility] Creatinine 4.65(H) 0.80 - 1.30 mg/dL [facility] Glucose 197 70 - 199 mg/dL [facility] Comment: Interpretive Data Fasting glucose [...] Calcium 9.3 8.5 - 10.3 mg/dL [facility] Bilirubin, total 0.4 0.1 - 1.2 mg/dL [facility] Protein, pl 6.5 6.5 - 8.5 g/dL [facility] Albumin 2.7(L) 3.5 - 5.0 g/dL [facility] Alk phos 197(H) 40 - 130 Units/L [facility] ALT 35 7 - 55 Units/L [facility] AST 36 10 - 50 Units/L [facility] Blood 06/16/2022 8:52 PM CDT 06/16/2022 9:10 PM CDT Marcelina Lo SUCTION ROLLER LAB BLOOD ORDERABLES Final Re sult Performing Organization Address City/[facility]/ZIP Co de Phone Number [facility] [place] [address] * (ABNORMAL) CBC with auto differential (06/16/2022 8:52 PM CDT) Pathologist [facility] WBC 7.9 3.8 - 9.9 K/cumm [facility] Hgb 7.4(L) 13.0 - 17.5 g/dL [facility] Hct 22.8(L) 38.9 - 50.3 % [facility] Plt 214 150 - 400 K/cumm [facility] MPV 10.1 9.1 - 12.3 fL [facility] RBC 2.41(L) 4.30 - 5.80 M/cumm [facility] MCV 94.6 81.3 - 96.4 fL [facility] MCH 30.7 27.1 - 33.3 pg [facility] MCHC 32.5 32.3 - 35.7 g/dL [facility] RDW CV 14.9 11.1 - 14.9 % [facility] RDW SD 47.8 35.7 - 48.1 fL [facility] NRBC abs 0.00 0.00 - 0.01 K/cumm [facility] Blood 06/16/2022 8:52 PM CDT 06/16/2022 9:02 PM CDT Marcelina Lo SUCTION ROLLER LAB BLOOD ORDERABLES Final Re sult [facility] [place] [address] * (ABNORMAL) POCT glucose (06/16/2022 8:06 PM CDT) Glucose, POC 230(H) 70 - 199 mg/dL [facility] Blood 06/16/2022 8:06 PM CDT 06/16/2022 8:06 PM CDT Catherine Adams MD LAB POCT ORDERABLES - DEVIC E Final Result Performing Organization Address [facility] de Phone Number [facility] [place] [address] * (ABNORMAL) POCT glucose (06/16/2022 7:16 PM CDT) Glucose, POC 250(H) 70 - 199 mg/dL [facility] Blood 06/16/2022 7:16 PM CDT 06/16/2022 7:16 PM CDT Catherine Adams MD LAB POCT ORDERABLES - DEVIC E Final Result Performing Organization Address [facility] de Phone Number [facility] [place] [address] * (ABNORMAL) POCT glucose (06/16/2022 5:52 PM CDT) Glucose, POC 328(H) 70 - 199 mg/dL [facility] Blood 06/16/2022 5:52 PM CDT 06/16/2022 5:52 PM CDT Catherine Adams MD LAB POCT ORDERABLES - DEVIC E Final Result Performing Organization Address [facility] [place] [address] * (ABNORMAL) aPTT (06/16/2022 4:49 PM CDT) aPTT 58(H) 27 - 37 sec [facility] Comment: Interpretive Data Therapeutic heparin range: 60.0 - 94.0 seconds. Based on correlation with therapeutic heparin activity range of 0.3-0.7 Units/mL. Current interpretive data was last revised on 2020. Blood 06/16/2022 4:49 PM CDT 06/16/2022 4:55 PM CDT Narrative [facility] - 06/16/2022 5:35 PM CDT [...] BLOOD ORDERABLES Final Result Performing Organization Address City/[facility]/ZIP Co de Phone Number [facility] [place] [employer] [place] [address] * (ABNORMAL) POCT glucose (06/16/2022 4:41 PM CDT) Glucose, POC 305(H) 70 - 199 mg/dL [facility] Blood 06/16/2022 4:41 PM CDT 06/16/2022 4:41 PM CDT Catherine Adams MD LAB POCT ORDERABLES - DEVIC E Final Result Performing Organization Address [facility] Co de Phone Number [facility] [place] [address] * (ABNORMAL) Blood gas, arterial (06/16/2022 3:31 PM CDT) pH, Art 7.41 7.35 - 7.45 [facility] PCO2, Arterial 36 35 - 45 mmHg [facility] PO2, Arterial 82(L) 83 - 108 mmHg [facility] HCO3 Art (Calculated) 23 20 - 30 mmol/L [facility] BE, art -1 mmol/L [facility] Comment: Interpretive Data No Reference Range Established Current Interpretive Data was last revised on 2017 O2 Sat Art (Measured) 96(H) 90 - 95 % [facility] Blood 06/16/2022 3:31 PM CDT 06/16/2022 3:38 PM CDT Marcelina Lo SUCTION ROLLER LAB BLOOD ORDERABLES Final Re sult Performing Organization Address [facility] de Phone Number [facility] [place] [address] * (ABNORMAL) POCT glucose (06/16/2022 3:27 PM CDT) Glucose, POC 316(H) 70 - 199 mg/dL [facility] Blood 06/16/2022 3:27 PM CDT 06/16/2022 3:27 PM CDT Catherine Adams MD LAB POCT ORDERABLES - DEVIC E Final Result Performing Organization Address [facility] de Phone Number [facility] [place] [address] * (ABNORMAL) POCT glucose (06/16/2022 1:00 PM CDT) Glucose, POC 327(H) 70 - 199 mg/dL [facility] Blood 06/16/2022 1:00 PM CDT 06/16/2022 1:00 PM CDT Catherine Adams MD LAB POCT ORDERABLES - DEVIC E Final Result Performing Organization Address [facility] de Phone Number [facility] [place] [address] * (ABNORMAL) eGFR (06/16/2022 12:57 PM CDT) eGFR 15(L) 90 - 130 mL/min/1. 73 m2 [facility] Comment: Interpretive Data Reference Interval [...] Adams MD LAB BLOOD ORDERABLES Final Result [facility] [place] [address] * (ABNORMAL) Basic metabolic panel (06/16/2022 12:57 PM CDT) Sodium 137 135 - 145 mmol/L [facility] Potassium, pl 3.9 3.3 - 4.9 mmol/L [facility] Chloride 101 97 - 110 mmol/L [facility] CO2 26 22 - 32 mmol/L [facility] Anion gap 10 2 - 15 mmol/L [facility] BUN 33(H) 8 - 25 mg/dL [facility] Creatinine 4.34(H) 0.80 - 1.30 mg/dL [facility] Glucose 340(H) 70 - 199 mg/dL [facility] Comment: Interpretive Data Fasting glucose [...] 2017. Calcium 9.0 8.5 - 10.3 mg/dL [facility] Blood 06/16/2022 12:5 7 PM CDT 06/16/2022 2:29 PM CDT us Catherine Adams MD LAB BLOOD ORDERABLES Final Result Performing Organization Address [facility] de Phone Number [facility] [place] [address] * (ABNORMAL) Blood gas, arterial (06/16/2022 10:54 AM CDT) pH, Art 7.40 7.35 - 7.45 [facility] PCO2, Arterial 38 35 - 45 mmHg [facility] PO2, Arterial 66(L) 83 - 108 mmHg [facility] HCO3 Art (Calculated) 24 20 - 30 mmol/L [facility] BE, art -1 mmol/L [facility] Comment: Interpretive Data No Reference Range Established Current Interpretive Data was last revised on 2017 O2 Sat Art (Measured) 92 90 - 95 % [facility] Blood 06/16/2022 10:5 4 AM CDT 06/16/2022 11:01 AM CDT us Marcelina Lo NP LAB BLOOD ORDERABLES Final Re sult Performing Organization Address [facility] Co de Phone Number [facility] [place] [address] * (ABNORMAL) POCT glucose (06/16/2022 10:50 AM CDT) [facility] Glucose, POC 393(H) 70 - 199 mg/dL [facility] Blood 06/16/2022 10:5 0 AM CDT 06/16/2022 10:50 AM CDT Catherine Adams MD LAB POCT ORDERABLES - DEVIC E Final Result Performing Organization Address [facility]/ZIP [place] [address] * (ABNORMAL) aPTT (06/16/2022 9:14 AM CDT) [facility] aPTT 54(H) 27 - 37 sec [facility] Comment: Interpretive Data Therapeutic heparin range: 60.0 - 94.0 seconds. Based on correlation with therapeutic heparin activity range of 0.3-0.7 Units/mL. Current interpretive data was last revised on 2020. Blood 06/16/2022 9:14 AM CDT 06/16/2022 9:33 AM CDT Narrative [facility] - 06/16/2022 9:58 AM CDT [...] BLOOD ORDERABLES Final Result Performing Organization Address City/[facility]/ZIP Co de Phone Number [facility] [place] [address] * Beta-hydroxybutyrate (06/16/2022 7:54 AM CDT) Beta-Hydroxybut yrate 0.1 0.0 - 0.5 mmol/L [facility] Blood 06/16/2022 7:54 AM CDT 06/16/2022 8:10 AM CDT Catherine Adams MD LAB BLOOD ORDERABLES Final Result [facility] [place] [address] * (ABNORMAL) eGFR (06/16/2022 7:54 AM CDT) Pathologist [facility] eGFR 16(L) 90 - 130 mL/min/1. 73 m2 [facility] Comment: Interpretive Data Reference Interval [...] 06/16/2022 8:06 AM CDT us Marcelina Lo SUCTION ROLLER LAB BLOOD ORDERABLES Final Re sult [facility] [place] [address] * (ABNORMAL) Differential, auto (06/16/2022 7:54 AM CDT) Neutrophil abs 6.3 1.7 - 6.5 K/cumm [facility] Imm gran abs 0.4(H) 0.0 - 0.1 K/cumm [facility] Lymphocyte abs 1.0 0.8 - 3.3 K/cumm [facility] Monocyte abs 1.2(H) 0.2 - 0.8 K/cumm [facility] Eosinophil abs 0.2 0.0 - 0.5 K/cumm [facility] Basophil abs 0.0 0.0 - 0.1 K/cumm [facility] Neutrophil pct 69.4 % [facility] Comment: Interpretive Data Percent cell count reference ranges are not reported, since discordance with absolute values may lead to misinterpretation of CBC data. Current Interpretive Data was last revised on 2017. Imm gran pct 4.3 % [facility] Comment: Interpretive Data Percent cell count reference ranges are not reported, since discordance with absolute values may lead to misinterpretation of CBC data. Current Interpretive Data was last revised on 2017. Lymphocyte pct 11.0 % [facility] Comment: Interpretive Data Percent cell count reference ranges are not reported, since discordance with absolute values may lead to misinterpretation of CBC data. Current Interpretive Data was last revised on 2017. Monocyte pct 13.3 % [facility] Comment: Interpretive Data Percent cell count reference ranges are not reported, since discordance with absolute values may lead to misinterpretation of CBC data. Current Interpretive Data was last revised on 2017. Eosinophil pct 1.7 % [facility] Comment: Interpretive Data Percent cell count reference ranges are not reported, since discordance with absolute values may lead to misinterpretation of CBC data. Current Interpretive Data was last revised on 2017. Basophil pct 0.3 % [facility] Comment: Interpretive Data Percent cell count reference ranges are not reported, since discordance with absolute values may lead to misinterpretation of CBC data. Current Interpretive Data was last revised on 2017. Blood 06/16/2022 7:54 AM CDT 06/16/2022 8:06 AM CDT Marcelina Lo SUCTION ROLLER LAB BLOOD ORDERABLES Final Re sult Performing Organization Address [facility] Co de Phone Number [facility] [place] [address] * (ABNORMAL) Blood gas, arterial (06/16/2022 7:54 AM CDT) pH, Art 7.44 7.35 - 7.45 [facility] PCO2, Arterial 35 35 - 45 mmHg [facility] PO2, Arterial 58(L) 83 - 108 mmHg [facility] HCO3 Art (Calculated) 25 20 - 30 mmol/L [facility] BE, art 0 mmol/L [facility] Comment: Interpretive Data No Reference Range Established Current Interpretive Data was last revised on 2017 O2 Sat Art (Measured) 90 90 - 95 % [facility] Blood 06/16/2022 7:54 AM CDT 06/16/2022 8:01 AM CDT Catherine Adams MD LAB BLOOD ORDERABLES Final Result Performing Organization Address [facility] Co de Phone Number [facility] [place] [address] * (ABNORMAL) Magnesium (06/16/2022 7:54 AM CDT) Magnesium 2.9(H) 1.4 - 2.5 mg/dL [facility] Blood 06/16/2022 7:54 AM CDT 06/16/2022 8:06 AM CDT Marcelina Lo SUCTION ROLLER LAB BLOOD ORDERABLES Final Re sult [facility] [place] [address] * (ABNORMAL) Comprehensive metabolic panel (06/16/2022 7:54 AM CDT) Sodium 136 135 - 145 mmol/L [facility] Potassium, pl 4.2 3.3 - 4.9 mmol/L [facility] Chloride 100 97 - 110 mmol/L [facility] CO2 26 22 - 32 mmol/L [facility] Anion gap 10 2 - 15 mmol/L [facility] BUN 33(H) 8 - 25 mg/dL [facility] Creatinine 4.13(H) 0.80 - 1.30 mg/dL [facility] Glucose 434(H) 70 - 199 mg/dL [facility] Comment: Interpretive Data Fasting glucose [...] 2017. Calcium 8.9 8.5 - 10.3 mg/dL [facility] Bilirubin, total 0.4 0.1 - 1.2 mg/dL [facility] Protein, pl 6.2(L) 6.5 - 8.5 g/dL [facility] Albumin 3.1(L) 3.5 - 5.0 g/dL [facility] Alk phos 218(H) 40 - 130 Units/L [facility] ALT 36 7 - 55 Units/L [facility] AST 42 10 - 50 Units/L [facility] Blood 06/16/2022 7:54 AM CDT 06/16/2022 8:06 AM CDT Marcelina Lo SUCTION ROLLER LAB BLOOD ORDERABLES Final Re sult Performing Organization Address [facility] Co de Phone Number [facility] [place] [employer] [place] [address] * (ABNORMAL) CBC with auto differential (06/16/2022 7:54 AM CDT) WBC 9.1 3.8 - 9.9 K/cumm [facility] Hgb 7.5(L) 13.0 - 17.5 g/dL [facility] Hct 22.8(L) 38.9 - 50.3 % [facility] Plt 214 150 - 400 K/cumm [facility] MPV 10.1 9.1 - 12.3 fL [facility] RBC 2.42(L) 4.30 - 5.80 M/cumm [facility] MCV 94.2 81.3 - 96.4 fL [facility] MCH 31.0 27.1 - 33.3 pg [facility] MCHC 32.9 32.3 - 35.7 g/dL [facility] RDW CV 14.6 11.1 - 14.9 % [facility] RDW SD 46.9 35.7 - 48.1 fL [facility] NRBC abs 0.02(H) 0.00 - 0.01 K/cumm [facility] Blood 06/16/2022 7:54 AM CDT 06/16/2022 8:06 AM CDT Marcelina Lo SUCTION ROLLER LAB BLOOD ORDERABLES Final Re sult [facility] [employer] [place], [place] [address] * (ABNORMAL) POCT glucose (06/16/2022 7:52 AM CDT) Glucose, POC 408(H) 70 - 199 mg/dL [facility] Blood 06/16/2022 7:52 AM CDT 06/16/2022 7:52 AM CDT Catherine Adams MD LAB POCT ORDERABLES - DEVIC E Final Result Performing Organization Address City/[facility] Co de Phone Number [facility] [place] [address] * (ABNORMAL) POCT glucose (06/16/2022 4:52 AM CDT) Glucose, POC 425(H) 70 - 199 mg/dL [facility] Blood 06/16/2022 4:52 AM CDT 06/16/2022 4:52 AM CDT Catherine Adams MD LAB POCT ORDERABLES - DEVIC E Final Result Performing Organization Address [facility] de Phone Number [facility] [place] [address] * XR Chest 1 View (06/16/2022 4:43 AM CDT) Anatomical Region Laterality Modality Body, Chest N/A Computed Radiogr aphy 06/16/2022 9:29 AM CDT Impressions 06/16/2022 11:17 AM CDT Comparison is made to 06/15/2022. Endotracheal tube tip is difficult to see but likely terminates approximately 6.4 cm above the boni. Gastric tube terminates below left diaphragm and out of the [id number]. There are small lung volumes. Airspace opacity [...] Electronically signed by: Jonh Bruno M.D. Narrative 06/16/2022 11:17 AM CDT EXAMINATION: 1 view chest radiograph Procedure Note John Bruno MD - 06/16/2022 EXAMINATION: 1 view chest radiograph IMPRESSION: Comparison is made to 06/15/2022. Endotracheal tube tip is difficult to see but likely terminates approximately 6.4 cm above the boni. Gastric tube terminates below left diaphragm and out of the [id number]. There are small lung volumes. Airspace opacity [...] 239(H) 70 - 199 mg/dL [facility] Blood 06/16/2022 12:0 1 AM CDT 06/16/2022 12:01 AM CDT Catherine Adams MD LAB POCT ORDERABLES - DEVIC E Final Result [facility] [place] [address] * (ABNORMAL) aPTT (06/16/2022 12:01 AM CDT) aPTT 53(H) 27 - 37 sec [facility] Comment: Interpretive Data Therapeutic heparin range: 60.0 - 94.0 seconds. Based on correlation with therapeutic heparin activity range of 0.3-0.7 Units/mL. Current interpretive data was last revised on 2020. Blood 06/16/2022 12:0 1 AM CDT 06/16/2022 12:14 AM CDT Narrative [facility] - 06/16/2022 12:36 AM CDT Draw STAT PTT 6 hrs after initiation of heparin infusion, draw STAT PTT 6 hours after each dose/rate change, and every 6 hours until 2 consecutive PTTs are within therapeutic range. Once two consecutive PTT's are therapeutic (60-94.9 seconds), then draw PTT every AM until heparin is discontinued. Catherine Adams MD LAB BLOOD ORDERABLES Final Result [facility] [place] [address] * (ABNORMAL) CBC without differential (06/16/2022 12:01 AM CDT) WBC 11.1(H) 3.8 - 9.9 K/cumm [facility] Hgb 7.4(L) 13.0 - 17.5 g/dL [facility] Hct 22.6(L) 38.9 - 50.3 % [facility] Plt 215 150 - 400 K/cumm [facility] MPV 10.3 9.1 - 12.3 fL [facility] RBC 2.38(L) 4.30 - 5.80 M/cumm [facility] MCV 95.0 81.3 - 96.4 fL [facility] MCH 31.1 27.1 - 33.3 pg [facility] MCHC 32.7 32.3 - 35.7 g/dL [facility] RDW CV 14.4 11.1 - 14.9 % [facility] RDW SD 46.4 35.7 - 48.1 fL [facility] NRBC abs 0.05(H) 0.00 - 0.01 K/cumm [facility] Blood 06/16/2022 12:0 1 AM CDT 06/16/2022 12:22 AM CDT Narrative [facility] - 06/16/2022 12:29 AM CDT While on heparin infusion Catherine Adams MD LAB BLOOD ORDERABLES Final Result [facility] [place] [address] * (ABNORMAL) eGFR (06/15/2022 8:51 PM CDT) [facility] eGFR 17(L) 90 - 130 mL/min/1. 73 [...] 06/15/2022 9:34 PM CDT us Marcelina Lo SUCTION ROLLER LAB BLOOD ORDERABLES Final Re sult [facility] [place] [facility] [place] [address] * (ABNORMAL) Differential, auto (06/15/2022 8:51 PM CDT) [facility] Neutrophil abs 8.6(H) 1.7 - 6.5 K/cumm [facility] Imm gran abs 0.8(H) 0.0 - 0.1 K/cumm [facility] Lymphocyte abs 1.4 0.8 - 3.3 K/cumm [facility] Monocyte abs 1.7(H) 0.2 - 0.8 K/cumm [facility] Eosinophil abs 0.2 0.0 - 0.5 K/cumm [facility] Basophil abs 0.0 0.0 - 0.1 K/cumm [facility] Neutrophil pct 67.7 % [facility] Comment: Interpretive Data Percent cell count reference ranges are not reported, since discordance with absolute values may lead to misinterpretation of CBC data. Current Interpretive Data was last revised on 2017. Imm gran pct 6.1 % [facility] Comment: Interpretive Data Percent cell count reference ranges are not reported, since discordance with absolute values may lead to misinterpretation of CBC data. Current Interpretive Data was last revised on 2017. Lymphocyte pct 11.2 % [facility] Comment: Interpretive Data Percent cell count reference ranges are not reported, since discordance with absolute values may lead to misinterpretation of CBC data. Current Interpretive Data was last revised on 2017. Monocyte pct 13.3 % [facility] Comment: Interpretive Data Percent cell count reference ranges are not reported, since discordance with absolute values may lead to misinterpretation of CBC data. Current Interpretive Data was last revised on 2017. Eosinophil pct 1.5 % [facility] Comment: Interpretive Data Percent cell count reference ranges are not reported, since discordance with absolute values may lead to misinterpretation of CBC data. Current Interpretive Data was last revised on 2017. Basophil pct 0.2 % [facility] Comment: Interpretive Data Percent cell count reference ranges are not reported, since discordance with absolute values may lead to misinterpretation of CBC data. Current Interpretive Data was last revised on 2017. Blood 06/15/2022 8:51 PM CDT 06/15/2022 9:34 PM CDT us Marcelina Lo SUCTION ROLLER LAB BLOOD ORDERABLES Final Re sult Performing Organization Address [facility] Co de Phone Number [facility] [place] [address] * (ABNORMAL) Triglycerides (06/15/2022 8:51 PM CDT) Pathologist [facility] Triglycerides 227(H) <=149 mg/dL [facility] Comment: Interpretive Data Ages < [...] PM CDT 06/15/2022 9:33 PM CDT Narrative [facility] - 06/15/2022 10:00 PM CDT While on propofol infusion. Catherine Adams MD LAB BLOOD ORDERABLES Final Result Performing Organization Address [facility] Co de Phone Number [facility] [place] [address] * (ABNORMAL) Phosphorus (06/15/2022 8:51 PM CDT) Pathologist [facility] Phosphorus, pl 5.0(H) 2.3 - 4.5 mg/dL [facility] Blood 06/15/2022 8:51 PM CDT 06/15/2022 9:33 PM CDT Marcelina Lo SUCTION ROLLER LAB BLOOD ORDERABLES Final Re sult Performing Organization Address City/[facility]/ZIP Co de Phone Number [facility] [place] [employer] [place] [address] * Beta-hydroxybutyrate (06/15/2022 8:51 PM CDT) Pathologist [facility] Beta-Hydroxybut yrate 0.2 0.0 - 0.5 mmol/L [facility] Blood 06/15/2022 8:51 PM CDT 06/15/2022 9:26 PM CDT Marcelina Lo SUCTION ROLLER LAB BLOOD ORDERABLES Edited R esult - Final Performing Organization Address [facility]/ZIP Co de Phone Number [facility] [place] [employer] [address] * Lipase (06/15/2022 8:51 PM CDT) Pathologist [facility] Lipase 27 10 - 99 Units/L [facility] Blood 06/15/2022 8:51 PM CDT 06/15/2022 9:33 PM CDT Marcelina Lo SUCTION ROLLER LAB BLOOD ORDERABLES Final Re sult [facility] [place] [employer] [address] * (ABNORMAL) Magnesium (06/15/2022 8:51 PM CDT) Magnesium 3.2(H) 1.4 - 2.5 mg/dL [facility] Blood 06/15/2022 8:51 PM CDT 06/15/2022 9:34 PM CDT us Marcelina Lo SUCTION ROLLER LAB BLOOD ORDERABLES Final Re sult [facility] [place] [address] * (ABNORMAL) Comprehensive metabolic panel (06/15/2022 8:51 PM CDT) Sodium 137 135 - 145 mmol/L [facility] Potassium, pl 4.6 3.3 - 4.9 mmol/L [facility] Chloride 101 97 - 110 mmol/L [facility] CO2 26 22 - 32 mmol/L [facility] Anion gap 10 2 - 15 mmol/L [facility] BUN 29(H) 8 - 25 mg/dL [facility] Creatinine 3.93(H) 0.80 - 1.30 mg/dL [facility] Glucose 179 70 - 199 mg/dL [facility] Comment: Interpretive Data Fasting glucose [...] Calcium 9.5 8.5 - 10.3 mg/dL [facility] Bilirubin, total 0.5 0.1 - 1.2 mg/dL [facility] Protein, pl 6.5 6.5 - 8.5 g/dL [facility] Albumin 3.0(L) 3.5 - 5.0 g/dL [facility] Alk phos 235(H) 40 - 130 Units/L [facility] ALT 36 7 - 55 Units/L [facility] AST 50 10 - 50 Units/L [facility] Blood 06/15/2022 8:51 PM CDT 06/15/2022 9:34 PM CDT us Marcelina Lo SUCTION ROLLER LAB BLOOD ORDERABLES Final Re sult Performing Organization Address [facility] Co de Phone Number [facility] [place] [address] * (ABNORMAL) CBC with auto differential (06/15/2022 8:51 PM CDT) [facility] WBC 12.7(H) 3.8 - 9.9 K/cumm [facility] Hgb 7.2(L) 13.0 - 17.5 g/dL [facility] Hct 21.9(L) 38.9 - 50.3 % [facility] Plt 204 150 - 400 K/cumm [facility] MPV 10.4 9.1 - 12.3 fL [facility] RBC 2.30(L) 4.30 - 5.80 M/cumm [facility] MCV 95.2 81.3 - 96.4 fL [facility] MCH 31.3 27.1 - 33.3 pg [facility] MCHC 32.9 32.3 - 35.7 g/dL [facility] RDW CV 14.6 11.1 - 14.9 % [facility] RDW SD 47.4 35.7 - 48.1 fL [facility] NRBC abs 0.05(H) 0.00 - 0.01 K/cumm [facility] Blood 06/15/2022 8:51 PM CDT 06/15/2022 9:34 PM CDT us Marcelina Lo SUCTION ROLLER LAB BLOOD ORDERABLES Final Re sult Performing Organization Address [facility]/ZIP Co de Phone Number [facility] [place] [address] * POCT glucose (06/15/2022 8:49 PM CDT) Glucose, POC 183 70 - 199 mg/dL [facility] Blood 06/15/2022 8:49 PM CDT 06/15/2022 8:49 PM CDT Catherine Adams MD LAB POCT ORDERABLES - DEVIC E Final Result Performing Organization Address [facility] Co de Phone Number [facility] [address] * C. difficile testing Stool (06/15/2022 6:15 PM CDT) C. diff result Negative, free toxin Negative , free toxin [facility] C. diff interp Negative for toxigenic Clostridioides (Clostridium) difficile. Analysis was performed using a glutatmate dehydrogenase antigen detection assay combined with a C. difficile toxin detection assay. [facility] Stool 06/15/2022 6:15 PM CDT 06/15/2022 8:14 PM CDT Narrative [facility] - 06/15/2022 11:02 PM CDT Testing for C. difficile is not recommended within 4 days of a negative result, 10 days of a positive, or 24 hours after laxative administration. If this order is clinically indicated, contact the lab and enter the passcode to complete this order.->[id number] Catherine Adams MD LAB MICROBIOLOGY - GENERAL ORDERABLES Final Result Performing Organization Address [facility] de Phone Number [facility] [place] [address] * VRE culture, surveillance Stool (06/15/2022 6:14 PM CDT) Report Final Report: Negative [facility] Stool 06/15/2022 6:14 PM CDT 06/15/2022 11:04 PM CDT Narrative [facility] - 06/18/2022 1:29 PM CDT Testing performed by [facility] Microbiology Laboratory ([phone]). us Catherine Adams MD LAB MICROBIOLOGY - GENERAL ORDERABLES Final Result Performing Organization Address City/[facility]/ZIP Co de Phone Number [facility] [place] [address] * (ABNORMAL) POCT glucose (06/15/2022 3:21 PM CDT) Glucose, POC 260(H) 70 - 199 mg/dL [facility] Blood 06/15/2022 3:21 PM CDT 06/15/2022 3:21 PM CDT Catherine Adams MD LAB POCT ORDERABLES - DEVIC E Final Result Performing Organization Address [facility] Co de Phone Number [facility] [place] [address] * (ABNORMAL) Blood gas, arterial (06/15/2022 11:21 AM CDT) Pathologist [facility] pH, Art 7.38 7.35 - 7.45 [facility] PCO2, Arterial 39 35 - 45 mmHg [facility] PO2, Arterial 100 83 - 108 mmHg [facility] HCO3 Art (Calculated) 23 20 - 30 mmol/L [facility] BE, art -2 mmol/L [facility] Comment: Interpretive Data No Reference Range Established Current Interpretive Data was last revised on 2017 O2 Sat Art (Measured) 98(H) 90 - 95 % [facility] Blood 06/15/2022 11:2 1 AM CDT 06/15/2022 11:32 AM CDT us Marcelina Lo NP LAB BLOOD ORDERABLES Final Re sult Performing Organization Address [facility]/ZIP Co de Phone Number [facility] [place] [address] * (ABNORMAL) POCT glucose (06/15/2022 11:20 AM CDT) Glucose, POC 332(H) 70 - 199 mg/dL [facility] Glucose comment 1 Glu2: RN/MD Notified [facility] Blood 06/15/2022 11:2 0 AM CDT 06/15/2022 11:20 AM CDT Catherine Adams MD LAB POCT ORDERABLES - DEVIC E Final Result [facility] [place] [address] * Respiratory pathogen panel Nasopharyngeal (06/15/2022 11:05 AM CDT) [facility] Influenza A RNA Not Detected Not Detected [facility] Influenza B RNA Not Detected Not Detected [facility] RSV RNA Not Detected Not Detected [facility] COVID-19 RNA Not Detected Not Detected [facility] Coronavirus 229E RNA Not Detected Not Detected [facility] Coronavirus HKU1 RNA Not Detected Not Detected [facility] Coronavirus NL63 RNA Not Detected Not Detected [facility] Coronavirus OC43 RNA Not Detected Not Detected [facility] Adenovirus DNA Not Detected Not Detected [facility] Metapneumovirus RNA Not Detected Not Detected [facility] Rhinovirus/Enterov irus RNA Not Detected Not Detected [facility] Parainfluenza 1 RNA Not Detected Not Detected [facility] Parainfluenza 2 RNA Not Detected Not Detected [facility] Parainfluenza 3 RNA Not Detected Not Detected [facility] Parainfluenza 4 RNA Not Detected Not Detected [facility] B. pertussis DNA Not Detected Not Detected [facility] B. parapertussis DNA Not Detected Not Detected [facility] C. pneumoniae DNA Not Detected Not Detected [facility] M. pneumoniae DNA Not Detected Not Detected [facility] Nasopharyngeal 06/15/2022 11 :05 AM CDT 06/15/2022 11:19 AM CDT Narrative [facility] - 06/15/2022 1:02 PM CDT Is the Patient experiencing symptoms consistent with COVID?->Unknown Reason for testing?->Symptomatic Surveillance testing for transplant patient?->No ??Interpretive Data [employer] FilmArray Respiratory Panel (RP2.1) assay is a [...] assay has FDA clearance for testing of SUCTION ROLLER swabs. ??The performance of additional specimen types has been assessed by the performing laboratory. ??The performance characteristics of this assay have been determined by [facility] Molecular Infectious Disease Laboratory. Current interpretive data was last revised on 22. Catherine Adams MD LAB MICROBIOLOGY - GENERAL ORDERABLES Final Result [facility] [place] [address] * US Vein Duplex Lower Extremity Bilateral Complete (06/15/2022 11:00 AM CDT) Anatomical Region Laterality Modality Vascular Bilateral Ultrasound 06/15/2022 10:2 9 AM CDT Narrative 06/15/2022 12:34 PM CDT [facility] - Department of Vascular Surgery, Vascular Laboratory [address] [place] [id number] Lower Extremity Venous Ultrasound Report Patient Name: ADELIA GARVIN C : 1970 (51y 9m) Study Date: 06/15/2022 10:29:44 AM Gender: M Tech: Location: [id number] Ref.Provider: CATHERINE ADAMS Quality: Adequate Order Provider: CATHERINE ADAMS Procedures: Vascular Report: Venous Duplex imaging was performed bilaterally in the lower extremities. The common femoral, femoral, popliteal, posterior tibial, peroneal veins were evaluated for patency, spontaneity and phasicity with Doppler, compression and augmentation maneuvers. Great saphenous vein proximal at the junction was evaluated with compression maneuvers. Indications: Localized edema. Findings: Performing Print Production Manager: Faye Zheng RVT, NAN. Bilateral: Venous [...] performed. Electronically Signed By: Jase Mendez MD [facility] 2022-06-15 12:34:44 CDT CC: CC: Procedure Note Jase Mendez MD - 06/15/[address]22 [facility] - Department of Vascular Surgery,Vascular Laboratory [address] [place] [address] Lower Extremity Venous Ultrasound Report Patient Name: ADELIA GARVIN CPatient ID: [id number] : 1970 (51y 9m)Study Date: 06/15/2022 10:29:44 AM Gender: MAccession #: [id number] Tech: CDLocation: [id number] Ref.Provider: Leandro ADAMSality: Adequate Order Provider: Ramez ADAMS #: [id number] Procedures: Vascular Report: Venous Duplex imaging was performed bilaterally in the lower extremities.The common femoral, femoral, popliteal, posterior tibial, peroneal veins wereevaluated for patency, spontaneity and phasicity with Doppler, compression and augmentationmaneuvers. Great saphenous vein proximal at the junction was evaluated with compressionmaneuvers. Indications: Localized edema. Findings: Performing Print Production Manager: Faye Zheng RVT, RDMS. Bilateral: Venous [...] performed. Electronically Signed By: Jase Mendez MD [facility] 2022-06-15 12:34:44 CDT CC: CC: Result [facility] Catherine Adams MD IMG US PROCEDURES Final Res ult * (ABNORMAL) POCT glucose (06/15/2022 8:21 AM CDT) Glucose, POC 260(H) 70 - 199 mg/dL [facility] Blood 06/15/2022 8:21 AM CDT 06/15/2022 8:21 AM CDT Result [facility] Catherine Adams MD LAB POCT ORDERABLES - DEVIC E Final Result Performing Organization Address [facility] Co de Phone Number [facility] [place] [address] * Oxyhemoglobin, central venous (06/15/2022 8:11 AM CDT) Oxyhemoglobin, CV 66.6 % [facility] Comment: Interpretive Data No reference range established. Current interpretive data was last revised 2019. Blood 06/15/2022 8:11 AM CDT 06/15/2022 8:25 AM CDT Result [facility] Cahterine Adams MD LAB BLOOD ORDERABLES Final Result Performing Organization Address [facility] Co de Phone Number [facility] [place] [address] * (ABNORMAL) aPTT (06/15/2022 8:11 AM CDT) aPTT 60(H) 27 - 37 sec [facility] Comment: Interpretive Data Therapeutic heparin [...] Adams MD LAB BLOOD ORDERABLES Final Result [facility] [place] [address] * (ABNORMAL) eGFR (06/15/2022 8:06 AM CDT) eGFR 27(L) 90 - 130 mL/min/1. 73 m2 [facility] Comment: Interpretive Data Reference Interval [...] 06/15/2022 8:50 AM CDT us Marcelina Lo SUCTION ROLLER LAB BLOOD ORDERABLES Final Re sult [facility] [place] [address] * (ABNORMAL) Differential, auto (06/15/2022 8:06 AM CDT) Neutrophil abs 9.0(H) 1.7 - 6.5 K/cumm [facility] Imm gran abs 1.0(H) 0.0 - 0.1 K/cumm [facility] Lymphocyte abs 1.6 0.8 - 3.3 K/cumm [facility] Monocyte abs 1.5(H) 0.2 - 0.8 K/cumm [facility] Eosinophil abs 0.2 0.0 - 0.5 K/cumm [facility] Basophil abs 0.1 0.0 - 0.1 K/cumm [facility] Neutrophil pct 67.6 % [facility] Comment: Interpretive Data Percent cell count reference ranges are not reported, since discordance with absolute values may lead to misinterpretation of CBC data. Current Interpretive Data was last revised on 2017. Imm gran pct 7.4 % [facility] Comment: Interpretive Data Percent cell count reference ranges are not reported, since discordance with absolute values may lead to misinterpretation of CBC data. Current Interpretive Data was last revised on 2017. Lymphocyte pct 11.8 % [facility] Comment: Interpretive Data Percent cell count reference ranges are not reported, since discordance with absolute values may lead to misinterpretation of CBC data. Current Interpretive Data was last revised on 2017. Monocyte pct 11.2 % [facility] Comment: Interpretive Data Percent cell count reference ranges are not reported, since discordance with absolute values may lead to misinterpretation of CBC data. Current Interpretive Data was last revised on 2017. Eosinophil pct 1.5 % [facility] Comment: Interpretive Data Percent cell count reference ranges are not reported, since discordance with absolute values may lead to misinterpretation of CBC data. Current Interpretive Data was last revised on 2017. Basophil pct 0.5 % [facility] Comment: Interpretive Data Percent cell count reference ranges are not reported, since discordance with absolute values may lead to misinterpretation of CBC data. Current Interpretive Data was last revised on 2017. Blood 06/15/2022 8:06 AM CDT 06/15/2022 8:50 AM CDT us Marcelina Lo SUCTION ROLLER LAB BLOOD ORDERABLES Final Re sult [facility] [place] [address] * Blood culture Blood Arm, right (06/15/2022 8:06 AM CDT) Report Final Report: No growth [facility] Blood (Arm, right) 06/15/2022 8:06 AM CDT [...] organism identification may be performed using the [employer] Gram-Positive Blood Culture Assay. This assay detects microbial DNA in positive blood culture broth via hybridization of target DNA to capture oligonucleotides on a microarray. This assay has been cleared by the [place] Food and Drug Administration and its performance characteristics have been verified by the [facility] Microbiology Laboratory. 5. ?For questions about this culture, contact the Microbiology Laboratory at [phone]. Interpretive data was last revised on 2020. Catherine Adams MD LAB MICROBIOLOGY - GENERAL ORDERABLES Final Result [facility] [place] [address] * Blood culture Blood Antecubital, right (06/15/2022 [...] organism identification may be performed using the [employer] Gram-Positive Blood Culture Assay. This assay detects microbial DNA in positive blood culture broth via hybridization of target DNA to capture oligonucleotides on a microarray. This assay has been cleared by the [place] Food and Drug Administration and its performance characteristics have been verified by the [facility] Microbiology Laboratory. 5. ?For questions about this culture, contact the Microbiology Laboratory at [phone]. Interpretive data was last revised on 2020. Catherine Adams MD LAB MICROBIOLOGY - GENERAL ORDERABLES Final Result Performing Organization Address City/[facility]/ZIP Co de Phone Number [facility] [place] [address] * (ABNORMAL) Magnesium (06/15/2022 8:06 AM CDT) Pathologist [facility] Magnesium 2.8(H) 1.4 - 2.5 mg/dL [facility] Blood 06/15/2022 8:06 AM CDT 06/15/2022 8:50 AM CDT Marcelina Lo NP LAB BLOOD ORDERABLES Final Re sult Performing Organization Address [facility] Co de Phone Number [facility] [place] [employer] [place] [address] * (ABNORMAL) Comprehensive metabolic panel (06/15/2022 8:06 AM CDT) Pathologist [facility] Sodium 134(L) 135 - 145 mmol/L [facility] Potassium, pl 5.0(H) 3.3 - 4.9 mmol/L [facility] Chloride 99 97 - 110 mmol/L [facility] CO2 26 22 - 32 mmol/L [facility] Anion gap 9 2 - 15 mmol/L [facility] BUN 21 8 - 25 mg/dL [facility] Creatinine 2.73(H) 0.80 - 1.30 mg/dL [facility] Glucose 273(H) 70 - 199 mg/dL [facility] Comment: Interpretive Data Fasting glucose [...] 2017. Calcium 8.8 8.5 - 10.3 mg/dL [facility] Bilirubin, total 0.5 0.1 - 1.2 mg/dL [facility] Protein, pl 6.2(L) 6.5 - 8.5 g/dL [facility] Albumin 2.7(L) 3.5 - 5.0 g/dL [facility] Alk phos 256(H) 40 - 130 Units/L [facility] ALT 44 7 - 55 Units/L [facility] AST 61(H) 10 - 50 Units/L [facility] Blood 06/15/2022 8:06 AM CDT 06/15/2022 8:50 AM CDT us Marcelina Lo SUCTION ROLLER LAB BLOOD ORDERABLES Final Re sult [facility] [place] [address] * (ABNORMAL) CBC with auto differential (06/15/2022 8:06 AM CDT) Pathologist [facility] WBC 13.2(H) 3.8 - 9.9 K/cumm [facility] Hgb 7.7(L) 13.0 - 17.5 g/dL [facility] Hct 24.1(L) 38.9 - 50.3 % [facility] Plt 228 150 - 400 K/cumm [facility] MPV 10.6 9.1 - 12.3 fL [facility] RBC 2.45(L) 4.30 - 5.80 M/cumm [facility] MCV 98.4(H) 81.3 - 96.4 fL [facility] MCH 31.4 27.1 - 33.3 pg [facility] MCHC 32.0(L) 32.3 - 35.7 g/dL [facility] RDW CV 14.5 11.1 - 14.9 % [facility] RDW SD 49.6(H) 35.7 - 48.1 fL [facility] NRBC abs 0.11(H) 0.00 - 0.01 K/cumm [facility] Blood 06/15/2022 8:06 AM CDT 06/15/2022 8:50 AM CDT us Marcelina Lo NP LAB BLOOD ORDERABLES Final Re sult [facility] [place] [address] * XR Chest 1 View (06/15/2022 5:21 AM CDT) Anatomical Region Laterality Modality Body, Chest N/A Computed Radiogr aphy 06/15/2022 8:52 AM CDT Impressions 06/15/2022 9:21 AM CDT Comparison is made to 06/14/2022. Endotracheal tube terminates near the thoracic inlet, approximately 7 cm above the boni. Recommend advancement. Gastric tube terminates below left hemidiaphragm out of the [id number]. A left internal jugular central venous catheter [...] terminates below left hemidiaphragm out of the [id number]. A left internal jugular central venous catheter [...] Glucose, POC 264(H) 70 - 199 mg/dL [facility] Blood 06/15/2022 3:37 AM CDT 06/15/2022 3:37 AM CDT Catherine Adams MD LAB POCT ORDERABLES - DEVIC E Final Result Performing Organization Address City/[facility]/ZIP Co de Phone Number [facility] [place] [address] * Lactate, whole blood (06/15/2022 3:37 AM CDT) [facility] Signature Lactate, bld 0.8 0.7 - 2.0 mmol/L [facility] Blood 06/15/2022 3:37 AM CDT 06/15/2022 3:46 AM CDT Marcelina Lo NP LAB BLOOD ORDERABLES Final Re sult Performing Organization Address City/[facility]/ZIP Co de Phone Number [facility] [place] [address] * (ABNORMAL) Blood gas, arterial (06/15/2022 3:37 AM CDT) Pathologist [facility] pH, Art 7.36 7.35 - 7.45 [facility] PCO2, Arterial 41 35 - 45 mmHg [facility] PO2, Arterial 64(L) 83 - 108 mmHg [facility] HCO3 Art (Calculated) 24 20 - 30 mmol/L [facility] BE, art -2 mmol/L [facility] Comment: Interpretive Data No Reference Range Established Current Interpretive Data was last revised on 2017 O2 Sat Art (Measured) 92 90 - 95 % [facility] Blood 06/15/2022 3:37 AM CDT 06/15/2022 3:46 AM CDT us Marcelina Lo SUCTION ROLLER LAB BLOOD ORDERABLES Final Re sult [facility] [place] [address] * Pneumonia PCR Tracheal aspirate (06/15/2022 1:53 AM CDT) [facility] C. pneumoniae DNA Not Detected Not Detected [facility] Legionella pneumophila DNA Not Detected Not Detected [facility] M. pneumoniae DNA Not Detected Not Detected [facility] Adenovirus DNA Not Detected Not Detected [facility] Coronavirus (229E, OC43, HKU1, NL63) RNA Not Detected Not Detected [facility] Metapneumovirus RNA Not Detected Not Detected [facility] Rhinovirus/Enterov irus RNA Not Detected Not Detected [facility] Influenza A RNA Not Detected Not Detected [facility] Influenza B RNA Not Detected Not Detected [facility] Parainfluenza virus (1-4) RNA Not Detected Not Detected [facility] RSV RNA Not Detected Not Detected [facility] Tracheal aspirate 06/15/2022 1:53 AM CDT 06/15/2022 4:22 AM CDT Narrative [facility] - 06/15/2022 5:52 AM CDT [...] rule out infection/co-infection with other organisms. The Track the BetFire Pneumonia Panel is FDA cleared for lower respiratory tract specimens. The performance characteristics of this assay have been determined by [facility]. Current interpretive data was last revised on 2021. Catherine Adams MD LAB MICROBIOLOGY - GENERAL ORDERABLES Final Result [facility] [place] [address] * Pneumonia PCR with aerobic culture and Gram stain Tracheal aspirate (06/15/2022 1:53 AM CDT) Direct Specimen Exam Molecular Analysis: Rapid molecular analysis has NOT detected bacterial targets (for a list of targets evaluated, refer to the interpretive data for this specimen). Correlation of molecular analysis with culture results is recommended. [facility] Direct Specimen Exam Stain: Few polymorphonuclear leukocytes seen. Few squamous epithelial cells seen. Few mixed bacterial stone seen on Gram stain. [facility] Report Final Report: Insignificant growth based on current clinical standards. [facility] Tracheal aspirate 06/15/2022 1:53 AM CDT 06/15/2022 3:09 AM CDT Narrative [facility] - 06/17/2022 10:03 AM CDT When rapid molecular testing results are reported, testing completed using the SynclogueArray Pneumonia Panel. ??This molecular assay detects: Acinetobacter [...] performance characteristics have been confirmed by the [facility]. ??The performance of the FilmArray Pneumonia Panel has not been established for monitoring treatment of infection and bacterial nucleic acids may persist independent of organism viability. us Catherine Adams MD LAB MICROBIOLOGY - GENERAL ORDERABLES Final Result [facility] [place] [address] * (ABNORMAL) Blood gas, arterial (06/14/2022 11:53 PM CDT) pH, Art 7.36 7.35 - 7.45 [facility] PCO2, Arterial 43 35 - 45 mmHg [facility] PO2, Arterial 77(L) 83 - 108 mmHg [facility] HCO3 Art (Calculated) 25 20 - 30 mmol/L [facility] BE, art -1 mmol/L [facility] Comment: Interpretive Data No Reference Range Established Current Interpretive Data was last revised on 2017 O2 Sat Art (Measured) 94 90 - 95 % [facility] Blood 06/14/2022 11:5 3 PM CDT 06/14/2022 11:59 PM CDT us Marcelina Lo SUCTION ROLLER LAB BLOOD ORDERABLES Final Re sult Performing Organization Address [facility] Co de Phone Number [facility] [place] [address] * POCT glucose (06/14/2022 11:52 PM CDT) Glucose, POC 176 70 - 199 mg/dL [facility] Blood 06/14/2022 11:5 2 PM CDT 06/14/2022 11:52 PM CDT us Catherine Adams MD LAB POCT ORDERABLES - DEVIC E Final Result Performing Organization Address [facility] de Phone Number [facility] [place] [address] * (ABNORMAL) eGFR (06/14/2022 7:41 PM CDT) eGFR 35(L) 90 - 130 mL/min/1. 73 m2 [facility] Comment: Interpretive Data Reference Interval [...] Adams MD LAB BLOOD ORDERABLES Final Result [facility] [place] [address] * (ABNORMAL) Differential, auto (06/14/2022 7:41 PM CDT) Neutrophil abs 9.9(H) 1.7 - 6.5 K/cumm [facility] Imm gran abs 1.5(H) 0.0 - 0.1 K/cumm [facility] Lymphocyte abs 1.7 0.8 - 3.3 K/cumm [facility] Monocyte abs 1.6(H) 0.2 - 0.8 K/cumm [facility] Eosinophil abs 0.3 0.0 - 0.5 K/cumm [facility] Basophil abs 0.0 0.0 - 0.1 K/cumm [facility] Neutrophil pct 66.0 % [facility] Comment: Interpretive Data Percent cell count reference ranges are not reported, since discordance with absolute values may lead to misinterpretation of CBC data. Current Interpretive Data was last revised on 2017. Imm gran pct 9.6 % [facility] Comment: Interpretive Data Percent cell count reference ranges are not reported, since discordance with absolute values may lead to misinterpretation of CBC data. Current Interpretive Data was last revised on 2017. Lymphocyte pct 11.2 % [facility] Comment: Interpretive Data Percent cell count reference ranges are not reported, since discordance with absolute values may lead to misinterpretation of CBC data. Current Interpretive Data was last revised on 2017. Monocyte pct 10.8 % [facility] Comment: Interpretive Data Percent cell count reference ranges are not reported, since discordance with absolute values may lead to misinterpretation of CBC data. Current Interpretive Data was last revised on 2017. Eosinophil pct 2.1 % [facility] Comment: Interpretive Data Percent cell count reference ranges are not reported, since discordance with absolute values may lead to misinterpretation of CBC data. Current Interpretive Data was last revised on 2017. Basophil pct 0.3 % [facility] Comment: Interpretive Data Percent cell count reference ranges are not reported, since discordance with absolute values may lead to misinterpretation of CBC data. Current Interpretive Data was last revised on 2017. Blood 06/14/2022 7:41 PM CDT 06/14/2022 8:01 PM CDT Catherine Adams MD LAB BLOOD ORDERABLES Final Result Performing Organization Address City/[facility]/ZIP Co de Phone Number [facility] [place] [address] * (ABNORMAL) Magnesium (06/14/2022 7:41 PM CDT) Magnesium 3.0(H) 1.4 - 2.5 mg/dL [facility] Blood 06/14/2022 7:41 PM CDT 06/14/2022 7:49 PM CDT us Catherine Adams MD LAB BLOOD ORDERABLES Final Result Performing Organization Address City/[facility]/ZIP Co de Phone Number [facility] [place] [address] * (ABNORMAL) Comprehensive metabolic panel (06/14/2022 7:41 PM CDT) Sodium 138 135 - 145 mmol/L [facility] Potassium, pl 4.7 3.3 - 4.9 mmol/L [facility] Chloride 102 97 - 110 mmol/L [facility] CO2 27 22 - 32 mmol/L [facility] Anion gap 9 2 - 15 mmol/L [facility] BUN 17 8 - 25 mg/dL [facility] Creatinine 2.22(H) 0.80 - 1.30 mg/dL [facility] Glucose 182 70 - 199 mg/dL [facility] Comment: Interpretive Data Fasting glucose [...] 2017. Calcium 9.1 8.5 - 10.3 mg/dL [facility] Bilirubin, total 0.6 0.1 - 1.2 mg/dL [facility] Protein, pl 6.5 6.5 - 8.5 g/dL [facility] Albumin 3.1(L) 3.5 - 5.0 g/dL [facility] Alk phos 264(H) 40 - 130 Units/L [facility] ALT 45 7 - 55 Units/L [facility] AST 73(H) 10 - 50 Units/L [facility] Blood 06/14/2022 7:41 PM CDT 06/14/2022 7:49 PM CDT us Catherine Adams MD LAB BLOOD ORDERABLES Final Result [facility] [place] [address] * (ABNORMAL) Triglycerides (06/14/2022 7:41 PM CDT) Triglycerides 482(H) <=149 mg/dL [facility] Comment: Interpretive Data Ages < or = [...] PM CDT 06/14/2022 7:49 PM CDT Narrative [facility] - 06/14/2022 8:29 PM CDT While on propofol infusion. us Catherine Adams MD LAB BLOOD ORDERABLES Final Result [facility] [place] [address] * Phosphorus (06/14/2022 7:41 PM CDT) Phosphorus, pl 3.1 2.3 - 4.5 mg/dL [facility] Blood 06/14/2022 7:41 PM CDT 06/14/2022 7:49 PM CDT Marcelina Lo SUCTION ROLLER LAB BLOOD ORDERABLES Final Re sult Performing Organization Address [facility] de Phone Number [facility] [place] [address] * (ABNORMAL) Beta-hydroxybutyrate (06/14/2022 7:41 PM CDT) [facility] Beta-Hydroxybut yrate 0.7(H) 0.0 - 0.5 mmol/L [facility] Blood 06/14/2022 7:41 PM CDT 06/14/2022 7:47 PM CDT Marcelina Lo SUCTION ROLLER LAB BLOOD ORDERABLES Edited R esult - Final Performing Organization Address [facility] de Phone Number [facility] [place] [address] * Lipase (06/14/2022 7:41 PM CDT) [facility] Lipase 25 10 - 99 Units/L [facility] Blood 06/14/2022 7:41 PM CDT 06/14/2022 7:49 PM CDT Marcelina Lo SUCTION ROLLER LAB BLOOD ORDERABLES Final Re sult Performing Organization Address [facility] de Phone Number [facility] [place] [address] * (ABNORMAL) CBC with auto differential (06/14/2022 7:41 PM CDT) [facility] WBC 15.0(H) 3.8 - 9.9 K/cumm [facility] Hgb 8.3(L) 13.0 - 17.5 g/dL [facility] Hct 24.9(L) 38.9 - 50.3 % [facility] Plt 218 150 - 400 K/cumm [facility] MPV 10.4 9.1 - 12.3 fL [facility] RBC 2.62(L) 4.30 - 5.80 M/cumm [facility] MCV 95.0 81.3 - 96.4 fL [facility] MCH 31.7 27.1 - 33.3 pg [facility] MCHC 33.3 32.3 - 35.7 g/dL [facility] RDW CV 14.1 11.1 - 14.9 % [facility] RDW SD 47.3 35.7 - 48.1 fL [facility] NRBC abs 0.08(H) 0.00 - 0.01 K/cumm [facility] Blood 06/14/2022 7:41 PM CDT 06/14/2022 8:01 PM CDT us Marcelina Lo SUCTION ROLLER LAB BLOOD ORDERABLES Final Re sult Performing Organization Address City/[facility]/ZIP Co de Phone Number [facility] [place] [address] * POCT glucose (06/14/2022 7:40 PM CDT) [facility] Glucose, POC 190 70 - 199 mg/dL [facility] Blood 06/14/2022 7:40 PM CDT 06/14/2022 7:40 PM CDT Catherine Adams MD LAB POCT ORDERABLES - DEVIC E Final Result Performing Organization Address City/[facility]/ZIP Co de Phone Number [facility] [place] [address] * (ABNORMAL) Blood gas, arterial (06/14/2022 4:19 PM CDT) [facility] pH, Art 7.38 7.35 - 7.45 [facility] PCO2, Arterial 41 35 - 45 mmHg [facility] PO2, Arterial 76(L) 83 - 108 mmHg [facility] HCO3 Art (Calculated) 25 20 - 30 mmol/L [facility] BE, art -1 mmol/L [facility] Comment: Interpretive Data No Reference Range Established Current Interpretive Data was last revised on 2017 O2 Sat Art (Measured) 94 90 - 95 % [facility] Blood 06/14/2022 4:19 PM CDT 06/14/2022 4:38 PM CDT us Marcelina Lo SUCTION ROLLER LAB BLOOD ORDERABLES Final Re sult Performing Organization Address City/[facility] Co de Phone Number [facility] [place] [employer] [address] * (ABNORMAL) POCT glucose (06/14/2022 4:16 PM CDT) Glucose, POC 229(H) 70 - 199 mg/dL [facility] Glucose comment 1 Glu2: RN/ Notified [facility] Blood 06/14/2022 4:16 PM CDT 06/14/2022 4:16 PM CDT us Catherine Adams MD LAB POCT ORDERABLES - DEVIC E Final Result Performing Organization Address [facility] Co de Phone Number [facility] [place] [employer] [address] * (ABNORMAL) POCT glucose (06/14/2022 11:21 AM CDT) Glucose, POC 202(H) 70 - 199 mg/dL [facility] Blood 06/14/2022 11:2 1 AM CDT 06/14/2022 11:21 AM CDT us Catherine Adams MD LAB POCT ORDERABLES - DEVIC E Final Result Performing Organization Address City/[facility]/ZIP Co de Phone Number [facility] [place] [address] * XR Chest 1 View (06/14/2022 10:56 [...] Glucose, POC 172 70 - 199 mg/dL [facility] Blood 06/14/2022 8:18 AM CDT 06/14/2022 8:18 AM CDT us Catherine Adams MD LAB POCT ORDERABLES - DEVIC E Final Result Performing Organization Address City/[facility]/ZIP Co de Phone Number [facility] [place] [address] * (ABNORMAL) eGFR (06/14/2022 8:16 AM CDT) eGFR 35(L) 90 - 130 mL/min/1. 73 m2 [facility] Comment: Interpretive Data Reference Interval Normal ?>/= [...] BLOOD ORDERABLES Final Result Performing Organization Address City/[facility]/ZIP Co de Phone Number [facility] [place] [address] * (ABNORMAL) Differential, auto (06/14/2022 8:16 AM CDT) Neutrophil abs 10.1(H) 1.7 - 6.5 K/cumm [facility] Imm gran abs 1.8(H) 0.0 - 0.1 K/cumm [facility] Lymphocyte abs 2.0 0.8 - 3.3 K/cumm [facility] Monocyte abs 1.5(H) 0.2 - 0.8 K/cumm [facility] Eosinophil abs 0.3 0.0 - 0.5 K/cumm [facility] Basophil abs 0.1 0.0 - 0.1 K/cumm [facility] Neutrophil pct 64.1 % [facility] Comment: Interpretive Data Percent cell count reference ranges are not reported, since discordance with absolute values may lead to misinterpretation of CBC data. Current Interpretive Data was last revised on 2017. Imm gran pct 11.4 % [facility] Comment: Interpretive Data Percent cell count reference ranges are not reported, since discordance with absolute values may lead to misinterpretation of CBC data. Current Interpretive Data was last revised on 2017. Lymphocyte pct 12.7 % [facility] Comment: Interpretive Data Percent cell count reference ranges are not reported, since discordance with absolute values may lead to misinterpretation of CBC data. Current Interpretive Data was last revised on 2017. Monocyte pct 9.5 % [facility] Comment: Interpretive Data Percent cell count reference ranges are not reported, since discordance with absolute values may lead to misinterpretation of CBC data. Current Interpretive Data was last revised on 2017. Eosinophil pct 1.9 % [facility] Comment: Interpretive Data Percent cell count reference ranges are not reported, since discordance with absolute values may lead to misinterpretation of CBC data. Current Interpretive Data was last revised on 2017. Basophil pct 0.4 % [facility] Comment: Interpretive Data Percent cell count reference ranges are not reported, since discordance with absolute values may lead to misinterpretation of CBC data. Current Interpretive Data was last revised on 2017. Blood 06/14/2022 8:16 AM CDT 06/14/2022 8:29 AM CDT Catherine Adams MD LAB BLOOD ORDERABLES Final Result Performing Organization Address [facility] Co de Phone Number [facility] [place] [address] * (ABNORMAL) aPTT (06/14/2022 8:16 AM CDT) aPTT 67(H) 27 - 37 sec [facility] Comment: Interpretive Data Therapeutic heparin range: 60.0 - 94.0 seconds. Based on correlation with therapeutic heparin activity range of 0.3-0.7 Units/mL. Current interpretive data was last revised on 2020. Blood 06/14/2022 8:16 AM CDT 06/14/2022 8:30 AM CDT Narrative [facility] - 06/14/2022 8:54 AM CDT [...] BLOOD ORDERABLES Final Result Performing Organization Address [facility] de Phone Number [facility] [place] [address] * (ABNORMAL) Blood gas, arterial (06/14/2022 8:16 AM CDT) pH, Art 7.41 7.35 - 7.45 [facility] PCO2, Arterial 38 35 - 45 mmHg [facility] PO2, Arterial 89 83 - 108 mmHg [facility] HCO3 Art (Calculated) 25 20 - 30 mmol/L [facility] BE, art 0 mmol/L [facility] Comment: Interpretive Data No Reference Range Established Current Interpretive Data was last revised on 2017 O2 Sat Art (Measured) 97(H) 90 - 95 % [facility] Blood 06/14/2022 8:16 AM CDT 06/14/2022 8:27 AM CDT Marcelina Lo SUCTION ROLLER LAB BLOOD ORDERABLES Final Re sult Performing Organization Address [facility] Co de Phone Number [facility] [place] [address] * (ABNORMAL) Magnesium (06/14/2022 8:16 AM CDT) Pathologist [facility] Magnesium 2.9(H) 1.4 - 2.5 mg/dL [facility] Blood 06/14/2022 8:16 AM CDT 06/14/2022 8:29 AM CDT Marcelina Lo SUCTION ROLLER LAB BLOOD ORDERABLES Final Re sult Performing Organization Address [facility] de Phone Number [facility] [place] [address] * (ABNORMAL) Comprehensive metabolic panel (06/14/2022 8:16 AM CDT) [facility] Sodium 134(L) 135 - 145 mmol/L [facility] Potassium, pl 4.7 3.3 - 4.9 mmol/L [facility] Comment:Hemolyzed; Potassium value may be falsely elevated by as much as 0.3-0.5 mmol/L. Suggest redraw and reanalysis. Chloride 100 97 - 110 mmol/L [facility] CO2 25 22 - 32 mmol/L [facility] Anion gap 9 2 - 15 mmol/L [facility] BUN 16 8 - 25 mg/dL [facility] Creatinine 2.19(H) 0.80 - 1.30 mg/dL [facility] Glucose 171 70 - 199 mg/dL [facility] Comment: Interpretive Data Fasting glucose [...] 2017. Calcium 9.5 8.5 - 10.3 mg/dL [facility] Bilirubin, total 0.6 0.1 - 1.2 mg/dL [facility] Protein, pl 6.6 6.5 - 8.5 g/dL [facility] Albumin 3.1(L) 3.5 - 5.0 g/dL [facility] Alk phos 276(H) 40 - 130 Units/L [facility] ALT 48 7 - 55 Units/L [facility] AST 81(H) 10 - 50 Units/L [facility] Comment:Hemolyzed; result ma y be falsely elevated Blood 06/14/2022 8:16 AM CDT 06/14/2022 8:29 AM CDT us Marcelina Lo SUCTION ROLLER LAB BLOOD ORDERABLES Final Re sult [facility] [place] [address] * (ABNORMAL) CBC with auto differential (06/14/2022 8:16 AM CDT) WBC 15.7(H) 3.8 - 9.9 K/cumm [facility] Hgb 8.3(L) 13.0 - 17.5 g/dL [facility] Hct 25.5(L) 38.9 - 50.3 % [facility] Plt 217 150 - 400 K/cumm [facility] MPV 10.6 9.1 - 12.3 fL [facility] RBC 2.63(L) 4.30 - 5.80 M/cumm [facility] [facility] MCV 97.0(H) 81.3 - 96.4 fL [facility] MCH 31.6 27.1 - 33.3 pg [facility] MCHC 32.5 32.3 - 35.7 g/dL [facility] RDW CV 13.8 11.1 - 14.9 % [facility] RDW SD 48.2(H) 35.7 - 48.1 fL [facility] NRBC abs 0.07(H) 0.00 - 0.01 K/cumm [facility] Blood 06/14/2022 8:16 AM CDT 06/14/2022 8:29 AM CDT us Marcelina Lo SUCTION ROLLER LAB BLOOD ORDERABLES Final Re sult [facility] [place] [address] * POCT glucose (06/14/2022 7:46 AM CDT) [facility] Signature Glucose, POC 180 70 - 199 mg/dL [facility] Blood 06/14/2022 7:46 AM CDT 06/14/2022 7:46 AM CDT us Catherine Adams MD LAB POCT ORDERABLES - DEVIC E Final Result Performing Organization Address City/[facility]/ZIP Co de Phone Number [facility] [place] [address] * XR Chest 1 View (06/14/2022 4:14 [...] Glucose, POC 163 70 - 199 mg/dL [facility] Blood 06/14/2022 4:01 AM CDT 06/14/2022 4:01 AM CDT Catherine Adams MD LAB POCT ORDERABLES - DEVIC E Final Result [facility] [place] [address] * POCT glucose (06/13/2022 11:38 PM CDT) Glucose, POC 175 70 - 199 mg/dL [facility] Blood 06/13/2022 11:3 8 PM CDT 06/13/2022 11:38 PM CDT us Catherine Adams MD LAB POCT ORDERABLES - DEVIC E Final Result Performing Organization Address [facility] de Phone Number [facility] [place] [address] * (ABNORMAL) aPTT (06/13/2022 10:49 PM CDT) aPTT 72(H) 27 - 37 sec [facility] Comment: Interpretive Data Therapeutic heparin range: 60.0 - 94.0 seconds. Based on correlation with therapeutic heparin activity range of 0.3-0.7 Units/mL. Current interpretive data was last revised on 2020. Blood 06/13/2022 10:4 9 PM CDT 06/13/2022 11:55 PM CDT Narrative [facility] - 06/14/2022 12:04 AM CDT Check aPTT 6 hours after the start of Heparin infusion and 6 hours after any change in Heparin rate. (Target aPTT 61-80 seconds). Call Nephrology if outside range. us Catherine Adams MD LAB BLOOD ORDERABLES Final Result Performing Organization Address [facility] de Phone Number [facility] [place] [address] * (ABNORMAL) Vancomycin level trough (06/13/2022 10:49 PM CDT) Vancomycin trough 23.3(H) 10.0 - 20.0 mcg/mL [facility] Blood 06/13/2022 10:4 9 PM CDT 06/13/2022 11:10 PM CDT us Catherine Adams MD LAB BLOOD ORDERABLES Final Result Performing Organization Address [facility]/ZIP Co de Phone Number [facility] [place] [address] * (ABNORMAL) CBC without differential (06/13/2022 10:49 PM CDT) WBC 15.0(H) 3.8 - 9.9 K/cumm [facility] Hgb 7.7(L) 13.0 - 17.5 g/dL [facility] Hct 22.7(L) 38.9 - 50.3 % [facility] Plt 206 150 - 400 K/cumm [facility] MPV 10.6 9.1 - 12.3 fL [facility] RBC 2.41(L) 4.30 - 5.80 M/cumm [facility] MCV 94.2 81.3 - 96.4 fL [facility] MCH 32.0 27.1 - 33.3 pg [facility] MCHC 33.9 32.3 - 35.7 g/dL [facility] RDW CV 13.7 11.1 - 14.9 % [facility] RDW SD 46.4 35.7 - 48.1 fL [facility] NRBC abs 0.05(H) 0.00 - 0.01 K/cumm [facility] Blood 06/13/2022 10:4 9 PM CDT 06/13/2022 11:10 PM CDT Catherine Adams MD LAB BLOOD ORDERABLES Final Result Performing Organization Address City/[facility] Co de Phone Number [facility] [place] [address] * (ABNORMAL) POCT glucose (06/13/2022 10:48 PM CDT) Glucose, POC 200(H) 70 - 199 mg/dL [facility] Blood 06/13/2022 10:4 8 PM CDT 06/13/2022 10:48 PM CDT us Catherine Adams MD LAB POCT ORDERABLES - DEVIC E Final Result [facility] [place] [address] * POCT glucose (06/13/2022 8:28 PM CDT) Pathologist [facility] Glucose, POC 182 70 - 199 mg/dL [facility] Blood 06/13/2022 8:28 PM CDT 06/13/2022 8:28 PM CDT Catherine Adams MD LAB POCT ORDERABLES - DEVIC E Final Result Performing Organization Address [facility] de Phone Number [facility] [place] [address] * (ABNORMAL) eGFR (06/13/2022 8:17 PM CDT) Pathologist [facility] eGFR 35(L) 90 - 130 mL/min/1. 73 m2 [facility] Comment: Interpretive Data Reference Interval [...] Adams MD LAB BLOOD ORDERABLES Final Result [facility] [place] [address] * (ABNORMAL) Differential, auto (06/13/2022 8:17 PM CDT) Neutrophil abs 10.6(H) 1.7 - 6.5 K/cumm [facility] Imm gran abs 2.2(H) 0.0 - 0.1 K/cumm [facility] Lymphocyte abs 2.3 0.8 - 3.3 K/cumm [facility] Monocyte abs 1.5(H) 0.2 - 0.8 K/cumm [facility] Eosinophil abs 0.3 0.0 - 0.5 K/cumm [facility] Basophil abs 0.1 0.0 - 0.1 K/cumm [facility] Neutrophil pct 62.7 % [facility] Comment: Confirmed by smear review Interpretive Data Percent cell count reference ranges are not reported, since discordance with absolute values may lead to misinterpretation of CBC data. Current Interpretive Data was last revised on 2017. Imm gran pct 13.0 % [facility] Comment: Interpretive Data Percent cell count reference ranges are not reported, since discordance with absolute values may lead to misinterpretation of CBC data. Current Interpretive Data was last revised on 2017. Lymphocyte pct 13.4 % [facility] Comment: Interpretive Data Percent cell count reference ranges are not reported, since discordance with absolute values may lead to misinterpretation of CBC data. Current Interpretive Data was last revised on 2017. Monocyte pct 8.9 % [facility] Comment: Interpretive Data Percent cell count reference ranges are not reported, since discordance with absolute values may lead to misinterpretation of CBC data. Current Interpretive Data was last revised on 2017. Eosinophil pct 1.7 % [facility] Comment: Interpretive Data Percent cell count reference ranges are not reported, since discordance with absolute values may lead to misinterpretation of CBC data. Current Interpretive Data was last revised on 2017. Basophil pct 0.3 % [facility] Comment: Interpretive Data Percent cell count reference ranges are not reported, since discordance with absolute values may lead to misinterpretation of CBC data. Current Interpretive Data was last revised on 2017. Blood 06/13/2022 8:17 PM CDT 06/13/2022 8:34 PM CDT Catherine Adams MD LAB BLOOD ORDERABLES Final Result Performing Organization Address [facility] Co de Phone Number [facility] [place] [address] * (ABNORMAL) Magnesium (06/13/2022 8:17 PM CDT) Pathologist [facility] Magnesium 2.7(H) 1.4 - 2.5 mg/dL [facility] Blood 06/13/2022 8:17 PM CDT 06/13/2022 8:33 PM CDT Catherine Adams MD LAB BLOOD ORDERABLES Final Result Performing Organization Address City/[facility] de Phone Number [facility] [place] [address] * (ABNORMAL) Comprehensive metabolic panel (06/13/2022 8:17 PM CDT) Pathologist [facility] Sodium 135 135 - 145 mmol/L [facility] Potassium, pl 4.9 3.3 - 4.9 mmol/L [facility] Chloride 99 97 - 110 mmol/L [facility] CO2 26 22 - 32 mmol/L [facility] Anion gap 10 2 - 15 mmol/L [facility] BUN 17 8 - 25 mg/dL [facility] Creatinine 2.21(H) 0.80 - 1.30 mg/dL [facility] Glucose 179 70 - 199 mg/dL [facility] Comment: Interpretive Data Fasting glucose [...] 2017. Calcium 8.9 8.5 - 10.3 mg/dL [facility] Bilirubin, total 0.6 0.1 - 1.2 mg/dL [facility] Protein, pl 6.2(L) 6.5 - 8.5 g/dL [facility] Albumin 3.0(L) 3.5 - 5.0 g/dL [facility] Alk phos 274(H) 40 - 130 Units/L [facility] ALT 47 7 - 55 Units/L [facility] AST 80(H) 10 - 50 Units/L [facility] Blood 06/13/2022 8:17 PM CDT 06/13/2022 8:33 PM CDT us Catherine Adams MD LAB BLOOD ORDERABLES Final Result [facility] [place] [address] * Lactate, whole blood (06/13/2022 8:17 PM CDT) Lactate, bld 0.8 0.7 - 2.0 mmol/L [facility] Blood 06/13/2022 8:17 PM CDT 06/13/2022 8:26 PM CDT us Marcelina Lo SUCTION ROLLER LAB BLOOD ORDERABLES Final Re sult Performing Organization Address [facility] Co de Phone Number [facility] [place] [address] * (ABNORMAL) Blood gas, arterial (06/13/2022 8:17 PM CDT) pH, Art 7.42 7.35 - 7.45 [facility] PCO2, Arterial 37 35 - 45 mmHg [facility] PO2, Arterial 73(L) 83 - 108 mmHg [facility] HCO3 Art (Calculated) 24 20 - 30 mmol/L [facility] BE, art 0 mmol/L [facility] Comment: Interpretive Data No Reference Range Established Current Interpretive Data was last revised on 2017 O2 Sat Art (Measured) 94 90 - 95 % [facility] Blood 06/13/2022 8:17 PM CDT 06/13/2022 8:26 PM CDT Marcelina Lo SUCTION ROLLER LAB BLOOD ORDERABLES Final Re sult Performing Organization Address [facility] Co de Phone Number [facility] [place] [address] * (ABNORMAL) Triglycerides (06/13/2022 8:17 PM CDT) Triglycerides 324(H) <=149 mg/dL [facility] Comment: Interpretive Data Ages < [...] PM CDT 06/13/2022 8:33 PM CDT Narrative [facility] - 06/13/2022 9:29 PM CDT While on propofol infusion. Catherine Adams MD LAB BLOOD ORDERABLES Final Result Performing Organization Address City/[facility]/ZIP Co de Phone Number [facility] [place] [address] * Phosphorus (06/13/2022 8:17 PM CDT) Phosphorus, pl 3.1 2.3 - 4.5 mg/dL [facility] Blood 06/13/2022 8:17 PM CDT 06/13/2022 8:33 PM CDT Marcelina Lo SUCTION ROLLER LAB BLOOD ORDERABLES Final Re sult Performing Organization Address City/[facility]/ZIP Co de Phone Number [facility] [place] [address] * (ABNORMAL) Beta-hydroxybutyrate (06/13/2022 8:17 PM CDT) Beta-Hydroxybut yrate 1.2(H) 0.0 - 0.5 mmol/L [facility] Blood 06/13/2022 8:17 PM CDT 06/13/2022 8:34 PM CDT Marcelina Lo SUCTION ROLLER LAB BLOOD ORDERABLES Edited R esult - Final [facility] [place] [address] * Lipase (06/13/2022 8:17 PM CDT) Pathologist [facility] Lipase 16 10 - 99 Units/L [facility] Blood 06/13/2022 8:17 PM CDT 06/13/2022 8:33 PM CDT Marcelina Lo SUCTION ROLLER LAB BLOOD ORDERABLES Final Re sult Performing Organization Address [facility] Co de Phone Number [facility] [place] [address] * (ABNORMAL) CBC with auto differential (06/13/2022 8:17 PM CDT) [facility] WBC 16.9(H) 3.8 - 9.9 K/cumm [facility] Hgb 8.0(L) 13.0 - 17.5 g/dL [facility] Hct 24.2(L) 38.9 - 50.3 % [facility] Plt 202 150 - 400 K/cumm [facility] MPV 10.7 9.1 - 12.3 fL [facility] RBC 2.55(L) 4.30 - 5.80 M/cumm [facility] MCV 94.9 81.3 - 96.4 fL [facility] MCH 31.4 27.1 - 33.3 pg [facility] MCHC 33.1 32.3 - 35.7 g/dL [facility] RDW CV 13.7 11.1 - 14.9 % [facility] RDW SD 46.6 35.7 - 48.1 fL [facility] NRBC abs 0.07(H) 0.00 - 0.01 K/cumm [facility] Blood 06/13/2022 8:17 PM CDT 06/13/2022 8:34 PM CDT Marcelina Lo SUCTION ROLLER LAB BLOOD ORDERABLES Final Re sult [facility] [place] [address] * XR Chest 1 View (06/13/2022 4:45 PM CDT) Anatomical Region Laterality Modality Body, Chest N/A Computed Radiogr aphy 06/13/2022 4:58 PM CDT Impressions 06/13/2022 4:58 PM CDT Comparison is made to the prior from 06/13/2022. Endotracheal tube terminates 3 cm above the boni. Nasogastric tube terminates below the diaphragms on the [id number]. Left internal jugular approach central venous catheter [...] tube terminates below the diaphragms on the [id number]. Left internal jugular approach central venous catheter [...] PM CDT 06/13/2022 4:32 PM CDT Narrative [facility] - 06/13/2022 4:42 PM CDT [...] BLOOD ORDERABLES Final Result Performing Organization Address [facility] de Phone Number [facility] [place] [employer] [place] [address] * (ABNORMAL) Blood gas, arterial (06/13/2022 4:12 PM CDT) Pathologist [facility] pH, Art 7.43 7.35 - 7.45 [facility] PCO2, Arterial 39 35 - 45 mmHg [facility] PO2, Arterial 63(L) 83 - 108 mmHg [facility] HCO3 Art (Calculated) 27 20 - 30 mmol/L [facility] BE, art 2 mmol/L [facility] Comment: Interpretive Data No Reference Range Established Current Interpretive Data was last revised on 2017 O2 Sat Art (Measured) 92 90 - 95 % [facility] Blood 06/13/2022 4:12 PM CDT 06/13/2022 4:20 PM CDT us Marcelina Lo NP LAB BLOOD ORDERABLES Final Re sult Performing Organization Address [facility] Co de Phone Number [facility] [place] [address] * Potassium, whole blood (06/13/2022 4:12 PM CDT) Pathologist [facility] Potassium, bld 4.5 3.3 - 4.9 mmol/L [facility] Blood 06/13/2022 4:12 PM CDT 06/13/2022 4:20 PM CDT Marcelina Lo SUCTION ROLLER LAB BLOOD ORDERABLES Final Re sult Performing Organization Address City/[facility]/ZIP Co de Phone Number [facility] [place] [address] * Lactate, whole blood (06/13/2022 4:12 PM CDT) Lactate, bld 0.9 0.7 - 2.0 mmol/L [facility] Blood 06/13/2022 4:12 PM CDT 06/13/2022 4:20 PM CDT Marcelina Lo SUCTION ROLLER LAB BLOOD ORDERABLES Final Re sult Performing Organization Address City/[facility]/ZIP Co de Phone Number [facility] [place] [employer] [address] * POCT glucose (06/13/2022 4:11 PM CDT) Glucose, POC 99 70 - 199 mg/dL [facility] Blood 06/13/2022 4:11 PM CDT 06/13/2022 4:11 PM CDT Catherine Adams MD LAB POCT ORDERABLES - DEVIC E Final Result [facility] [place] [employer] [address] * POCT glucose (06/13/2022 12:29 PM CDT) Glucose, POC 129 70 - 199 mg/dL [facility] Blood 06/13/2022 12:2 9 PM CDT 06/13/2022 12:29 PM CDT us Catherine Adams MD LAB POCT ORDERABLES - DEVIC E Final Result Performing Organization Address [facility] Co de Phone Number [facility] [place] [address] * (ABNORMAL) Blood gas, arterial (06/13/2022 12:20 PM CDT) pH, Art 7.40 7.35 - 7.45 [facility] PCO2, Arterial 42 35 - 45 mmHg [facility] PO2, Arterial 60(L) 83 - 108 mmHg [facility] HCO3 Art (Calculated) 27 20 - 30 mmol/L [facility] BE, art 2 mmol/L [facility] Comment: Interpretive Data No Reference Range Established Current Interpretive Data was last revised on 2017 O2 Sat Art (Measured) 90 90 - 95 % [facility] Blood 06/13/2022 12:2 0 PM CDT 06/13/2022 1:01 PM CDT us Marcelina Lo SUCTION ROLLER LAB BLOOD ORDERABLES Final Re sult Performing Organization Address [facility] Co de Phone Number [facility] [place] [address] * XR Chest 1 View (06/13/2022 11:11 [...] Potassium, bld 5.7(H) 3.3 - 4.9 mmol/L [facility] Blood 06/13/2022 9:41 AM CDT 06/13/2022 9:47 AM CDT Marcelina Lo SUCTION ROLLER LAB BLOOD ORDERABLES Final Re sult [facility] [place] [address] * Lactate, whole blood (06/13/2022 9:41 AM CDT) Lactate, bld 1.0 0.7 - 2.0 mmol/L [facility] Blood 06/13/2022 9:41 AM CDT 06/13/2022 9:47 AM CDT Marcelina Lo SUCTION ROLLER LAB BLOOD ORDERABLES Final Re sult Performing Organization Address [facility] Co de Phone Number [facility] [place] [address] * (ABNORMAL) Blood gas, arterial (06/13/2022 9:41 AM CDT) pH, Art 7.40 7.35 - 7.45 [facility] PCO2, Arterial 40 35 - 45 mmHg [facility] PO2, Arterial 66(L) 83 - 108 mmHg [facility] HCO3 Art (Calculated) 26 20 - 30 mmol/L [facility] BE, art 0 mmol/L [facility] Comment: Interpretive Data No Reference Range Established Current Interpretive Data was last revised on 2017 O2 Sat Art (Measured) 93 90 - 95 % [facility] Blood 06/13/2022 9:41 AM CDT 06/13/2022 9:47 AM CDT Marcelina Lo SUCTION ROLLER LAB BLOOD ORDERABLES Final Re sult Performing Organization Address [facility] de Phone Number [facility] [place] [address] * (ABNORMAL) POCT glucose (06/13/2022 9:38 AM CDT) Glucose, POC 215(H) 70 - 199 mg/dL [facility] Blood 06/13/2022 9:38 AM CDT 06/13/2022 9:38 AM CDT Catherine Adams MD LAB POCT ORDERABLES - DEVIC E Final Result Performing Organization Address [facility] Co de Phone Number [facility] [place] [address] * TRANSTHORACIC ECHO (TTE) COMPLETE W DOPPLER/CF W CONTRAST W BUBBLE (06/13/2022 9:34 AM CDT) LV EF 65 % CARDIOREPORT Anatomical Region Laterality Modality Ultrasound 06/13/2022 7:10 AM CDT Narrative 06/13/2022 11:08 AM CDT Patient name: Adelia Garvin Date of test: 06/13/2022 Type of test: TTE w/Doppler Hospital #: 0 Date of : 1970 (M) Print Production Manager: Elli Larsen RDCS Referring Physician: CATHERINE ADAMS MD Contrast Agent: 0.8 ml. Optison Admin., (2.2 ml Wasted) and NS Bubble Study Contrast Administered by: Ginna RN Supervised/Interpreted by: Vincenzo Stoddard MD Diagnosis: Location: [facility] Reason for test: TTE with bubble MV [...] 2=Hypo 3=Akinetic 4=Dyskin./Aneurysm 0=Not visualized) Parasternal Long [place]:MAS=1 BAS=1 MIL=1 IVETH=1 Parasternal Short [place]:MAS=1 MIS=1 CO=1 MIL=1 MAL=1 MA=1 Apical 4 Chambers:=1 MIS=1 BIS=1 BAL=1 MAL=1 AL=1 AC=1 Apical 2 Chambers:AI=1 CO=1 BI=1 BA=1 MA=1 AA=1 AC=1 LV Global [...] MD By signing this report, the attending lead trainer certifies that he or she has personally supervised and interpreted the echocardiogram and has reviewed and or edited and agrees with the written comments contained within the report. Procedure Note Vincenzo Stoddard MD - 06/13/2022 Patient name: Adelia Garvin Date of test: 06/13/2022 Type of test: TTE w/Doppler [facility] #: 0 Date of : 1970 (M) Print Production Manager: Elli Larsen RDCS Referring Physician: CATHERINE ADAMS MD Contrast Agent: 0.8 ml. Optison Admin., (2.2 ml Wasted) and NS Bubble Study Contrast Administered by: Floor RN Supervised/Interpreted by: Vincenzo Stoddard MD Diagnosis: Location: [facility] Reason for test: TTE with bubble MV [...] 2=Hypo 3=Akinetic 4=Dyskin./Aneurysm 0=Not visualized) Parasternal Long [place]:MAS=1 BAS=1 MIL=1 IVETH=1 Parasternal Short [place]:MAS=1 MIS=1 CO=1 MIL=1 MAL=1 MA=1 Apical 4 Chambers:=1 MIS=1 BIS=1 BAL=1 MAL=1 AL=1 AC=1 Apical 2 Chambers:AI=1 CO=1 BI=1 BA=1 MA=1 AA=1 AC=1 LV Global [...] MD By signing this report, the attending lead trainer certifies that he or she has personally supervised and interpreted the echocardiogram and has reviewed and or edited and agrees with the written comments contained within the report. us Catherine Adams MD CV ECHO PROCEDURES Final Re sult * (ABNORMAL) Manual Differential (06/13/2022 9:33 AM CDT) Differential Manual [facility] Cells Counted 115 [facility] Neutrophil abs 13.0(H) 1.7 - 6.5 K/cumm [facility] Imm gran abs 1.2(H) 0.0 - 0.1 K/cumm [facility] Lymphocyte abs 0.7(L) 0.8 - 3.3 K/cumm [facility] Monocyte abs 0.4 0.2 - 0.8 K/cumm [facility] Eosinophil abs 0.3 0.0 - 0.5 K/cumm [facility] Neutrophil pct 83.6 % [facility] Comment: Interpretive Data Percent cell count reference ranges are not reported, since discordance with absolute values may lead to misinterpretation of CBC data. Current Interpretive Data was last revised on 2017. Lymphocyte pct 4.3 % [facility] Comment: Interpretive Data Percent cell count reference ranges are not reported, since discordance with absolute values may lead to misinterpretation of CBC data. Current Interpretive Data was last revised on 2017. Monocyte pct 2.6 % [facility] Comment: Interpretive Data Percent cell count reference ranges are not reported, since discordance with absolute values may lead to misinterpretation of CBC data. Current Interpretive Data was last revised on 2017. Eosinophil pct 1.7 % [facility] Comment: Interpretive Data Percent cell count reference ranges are not reported, since discordance with absolute values may lead to misinterpretation of CBC data. Current Interpretive Data was last revised on 2017. Metamyelocyte pct 5.2 % [facility] Myelocyte pct 2.6 % [facility] Blood 06/13/2022 9:33 AM CDT 06/13/2022 10:10 AM CDT us Catherine Adams MD LAB BLOOD ORDERABLES Final Result [facility] [place] [address] * (ABNORMAL) eGFR (06/13/2022 9:33 AM CDT) eGFR 34(L) 90 - 130 mL/min/1. 73 m2 [facility] Comment: Interpretive Data Reference Interval [...] Adams MD LAB BLOOD ORDERABLES Final Result [facility] [place] [address] * (ABNORMAL) Magnesium (06/13/2022 9:33 AM CDT) Magnesium 2.8(H) 1.4 - 2.5 mg/dL [facility] Blood 06/13/2022 9:33 AM CDT 06/13/2022 10:06 AM CDT us Marcelina Lo SUCTION ROLLER LAB BLOOD ORDERABLES Final Re sult [facility] [place] [address] * (ABNORMAL) Comprehensive metabolic panel (06/13/2022 9:33 AM CDT) Sodium 135 135 - 145 mmol/L [facility] Potassium, pl 5.6(H) 3.3 - 4.9 mmol/L [facility] Chloride 98 97 - 110 mmol/L [facility] CO2 26 22 - 32 mmol/L [facility] Anion gap 11 2 - 15 mmol/L [facility] BUN 19 8 - 25 mg/dL [facility] Creatinine 2.26(H) 0.80 - 1.30 mg/dL [facility] Glucose 217(H) 70 - 199 mg/dL [facility] Comment: Interpretive Data Fasting glucose [...] Calcium 8.7 8.5 - 10.3 mg/dL [facility] Bilirubin, total 0.7 0.1 - 1.2 mg/dL [facility] Protein, pl 6.5 6.5 - 8.5 g/dL [facility] Albumin 3.2(L) 3.5 - 5.0 g/dL [facility] Alk phos 300(H) 40 - 130 Units/L [facility] ALT 55 7 - 55 Units/L [facility] AST 90(H) 10 - 50 Units/L [facility] Blood 06/13/2022 9:33 AM CDT 06/13/2022 10:06 AM CDT us Marcelina Lo SUCTION ROLLER LAB BLOOD ORDERABLES Final Re sult Performing Organization Address [facility] Co de Phone Number [facility] [place] [address] * (ABNORMAL) CBC with auto differential (06/13/2022 9:33 AM CDT) WBC 15.6(H) 3.8 - 9.9 K/cumm [facility] Hgb 7.7(L) 13.0 - 17.5 g/dL [facility] Hct 23.1(L) 38.9 - 50.3 % [facility] Plt 191 150 - 400 K/cumm [facility] MPV 10.9 9.1 - 12.3 fL [facility] RBC 2.45(L) 4.30 - 5.80 M/cumm [facility] MCV 94.3 81.3 - 96.4 fL [facility] MCH 31.4 27.1 - 33.3 pg [facility] MCHC 33.3 32.3 - 35.7 g/dL [facility] RDW CV 13.6 11.1 - 14.9 % [facility] RDW SD 46.7 35.7 - 48.1 fL [facility] NRBC abs 0.05(H) 0.00 - 0.01 K/cumm [facility] Blood 06/13/2022 9:33 AM CDT 06/13/2022 10:06 AM CDT us Marcelina Lo SUCTION ROLLER LAB BLOOD ORDERABLES Final Re sult [facility] [place] [address] * (ABNORMAL) POCT glucose (06/13/2022 4:40 AM CDT) Glucose, POC 280(H) 70 - 199 mg/dL [facility] Blood 06/13/2022 4:40 AM CDT 06/13/2022 4:40 AM CDT Catherine Adams MD LAB POCT ORDERABLES - DEVIC E Final Result Performing Organization Address [facility] Co de Phone Number [facility] [place] [address] * (ABNORMAL) Blood gas, arterial (06/13/2022 2:26 AM CDT) pH, Art 7.35 7.35 - 7.45 [facility] PCO2, Arterial 42 35 - 45 mmHg [facility] PO2, Arterial 78(L) 83 - 108 mmHg [facility] HCO3 Art (Calculated) 24 20 - 30 mmol/L [facility] BE, art -3 mmol/L [facility] Comment: Interpretive Data No Reference Range Established Current Interpretive Data was last revised on 2017 O2 Sat Art (Measured) 94 90 - 95 % [facility] Blood 06/13/2022 2:26 AM CDT 06/13/2022 2:58 AM CDT us Marcelina Lo SUCTION ROLLER LAB BLOOD ORDERABLES Final Re sult Performing Organization Address [facility] Co de Phone Number [facility] [place] [address] * (ABNORMAL) Blood gas, arterial (06/13/2022 1:11 AM CDT) pH, Art 7.35 7.35 - 7.45 [facility] PCO2, Arterial 44 35 - 45 mmHg [facility] PO2, Arterial 72(L) 83 - 108 mmHg [facility] HCO3 Art (Calculated) 25 20 - 30 mmol/L [facility] BE, art -1 mmol/L [facility] Comment: Interpretive Data No Reference Range Established Current Interpretive Data was last revised on 2017 O2 Sat Art (Measured) 94 90 - 95 % [facility] Blood 06/13/2022 1:11 AM CDT 06/13/2022 1:30 AM CDT us Marcelina Lo SUCTION ROLLER LAB BLOOD ORDERABLES Final Re sult Performing Organization Address City/[facility] Co de Phone Number [facility] [place] [address] * Potassium, whole blood (06/13/2022 1:11 AM CDT) Potassium, bld 4.8 3.3 - 4.9 mmol/L [facility] Blood 06/13/2022 1:11 AM CDT 06/13/2022 1:30 AM CDT us Catherine Adams MD LAB BLOOD ORDERABLES Final Result Performing Organization Address [facility] Co de Phone Number [facility] [place] [address] * POCT glucose (06/12/2022 11:26 PM CDT) Glucose, POC 123 70 - 199 mg/dL [facility] Blood 06/12/2022 11:2 6 PM CDT 06/12/2022 11:26 PM CDT Catherine Adams MD LAB POCT ORDERABLES - DEVIC E Final Result Performing Organization Address City/[facility] Co de Phone Number [facility] [place] [address] * Lactate, whole blood (06/12/2022 8:55 PM CDT) Lactate, bld 1.2 0.7 - 2.0 mmol/L [facility] Blood 06/12/2022 8:55 PM CDT 06/12/2022 9:59 PM CDT us Jeffrey Green MD LAB BLOOD ORDERABLES Final Result Performing Organization Address [facility] Co de Phone Number [facility] [place] [address] * (ABNORMAL) eGFR (06/12/2022 8:47 PM CDT) eGFR 35(L) 90 - 130 mL/min/1. 73 m2 [facility] Comment: Interpretive Data Reference Interval [...] BLOOD ORDERABLES Final Result Performing Organization Address City/[facility] Co de Phone Number [facility] [place] [address] * (ABNORMAL) Differential, auto (06/12/2022 8:47 PM [...] [facility] Neutrophil pct 65.3 % [facility] Comment: Confirmed by smear review Interpretive Data Percent cell count reference ranges are not reported, since discordance with absolute values may lead to misinterpretation of CBC data. Current Interpretive Data was last revised on 2017. Imm gran pct 13.1 % [facility] Comment: Interpretive Data Percent cell count reference [...] on 2017. Monocyte pct 7.0 % [facility] Comment: Interpretive Data Percent cell count reference [...] BLOOD ORDERABLES Final Result Performing Organization Address City/[facility]/ZIP Co de Phone Number [facility] [place] [address] * (ABNORMAL) Magnesium (06/12/2022 8:47 PM CDT) Pathologist [facility] Magnesium 2.7(H) 1.4 - 2.5 mg/dL [facility] Blood 06/12/2022 8:47 PM CDT 06/12/2022 10:04 PM CDT Catherine Adams MD LAB BLOOD ORDERABLES Final Result Performing Organization Address [facility] de Phone Number [facility] [place] [address] * (ABNORMAL) Comprehensive metabolic panel (06/12/2022 8:47 PM CDT) Pathologist [facility] Sodium 134(L) 135 - 145 mmol/L [facility] Potassium, pl 5.1(H) 3.3 - 4.9 mmol/L [facility] Comment:Hemolyzed; Potassium value may be falsely elevated by as much as 0.6-1.0 mmol/L. Suggest redraw and reanalysis. Chloride 101 97 - 110 mmol/L [facility] CO2 24 22 - 32 mmol/L [facility] Anion gap 9 2 - 15 mmol/L [facility] BUN 19 8 - 25 mg/dL [facility] Creatinine 2.22(H) 0.80 - 1.30 mg/dL [facility] Glucose 101 70 - 199 mg/dL [facility] Comment: Interpretive Data Fasting glucose [...] 2017. Calcium 8.7 8.5 - 10.3 mg/dL [facility] Bilirubin, total 0.8 0.1 - 1.2 mg/dL [facility] Protein, pl 6.5 6.5 - 8.5 g/dL [facility] Albumin 2.7(L) 3.5 - 5.0 g/dL [facility] Alk phos 300(H) 40 - 130 Units/L [facility] ALT 57(H) 7 - 55 Units/L [facility] AST 110(H) 10 - 50 Units/L [facility] Comment:Hemolyzed; result ma y be falsely elevated Blood 06/12/2022 8:47 PM CDT 06/12/2022 10:04 PM CDT Catherine Adams MD LAB BLOOD ORDERABLES Final Result [facility] [place] [address] * (ABNORMAL) Blood gas, arterial (06/12/2022 8:47 PM CDT) pH, Art 7.36 7.35 - 7.45 [facility] PCO2, Arterial 47(H) 35 - 45 mmHg [facility] PO2, Arterial 84 83 - 108 mmHg [facility] HCO3 Art (Calculated) 27 20 - 30 mmol/L [facility] BE, art 1 mmol/L [facility] Comment: Interpretive Data No Reference Range Established Current Interpretive Data was last revised on 2017 O2 Sat Art (Measured) 96(H) 90 - 95 % [facility] Blood 06/12/2022 8:47 PM CDT 06/12/2022 9:59 PM CDT Marcelina Lo NP LAB BLOOD ORDERABLES Final Re sult Performing Organization Address [facility] de Phone Number [facility] [place] [address] * (ABNORMAL) aPTT (06/12/2022 8:47 PM CDT) aPTT 78(H) 27 - 37 sec [facility] Comment: Interpretive Data Therapeutic heparin range: 60.0 - 94.0 seconds. Based on correlation with therapeutic heparin activity range of 0.3-0.7 Units/mL. Current interpretive data was last revised on 2020. Blood 06/12/2022 8:47 PM CDT 06/12/2022 10:12 PM CDT Narrative [facility] - 06/12/2022 10:40 PM CDT Check aPTT 6 hours after the start of Heparin infusion and 6 hours after any change in Heparin rate. (Target aPTT 61-80 seconds). Call Nephrology if outside range. Catherine Adams MD LAB BLOOD ORDERABLES Final Result Performing Organization Address [facility] de Phone Number [facility] [place] [address] * (ABNORMAL) Triglycerides (06/12/2022 8:47 PM CDT) Triglycerides 248(H) <=149 mg/dL [facility] Comment: Interpretive Data Ages < [...] PM CDT 06/12/2022 10:04 PM CDT Narrative [facility] - 06/12/2022 10:44 PM CDT While on propofol infusion. Catherine Adams MD LAB BLOOD ORDERABLES Final Result Performing Organization Address [facility] Co de Phone Number [facility] [place] [address] * Phosphorus (06/12/2022 8:47 PM CDT) Phosphorus, pl 3.5 2.3 - 4.5 mg/dL [facility] Blood 06/12/2022 8:47 PM CDT 06/12/2022 10:04 PM CDT us Marcelina Lo NP LAB BLOOD ORDERABLES Final Re sult Performing Organization Address City/[facility] Co de Phone Number [facility] [place] [address] * Beta-hydroxybutyrate (06/12/2022 8:47 PM CDT) Beta-Hydroxybut yrate 0.2 0.0 - 0.5 mmol/L [facility] Blood 06/12/2022 8:47 PM CDT 06/12/2022 10:00 PM CDT us Marcelina Lo SUCTION ROLLER LAB BLOOD ORDERABLES Edited R esult - Final [facility] [place] [address] * Lipase (06/12/2022 8:47 PM CDT) Pathologist [facility] Lipase 16 10 - 99 Units/L [facility] Blood 06/12/2022 8:47 PM CDT 06/12/2022 10:04 PM CDT Marcelina Lo SUCTION ROLLER LAB BLOOD ORDERABLES Final Re sult Performing Organization Address [facility]/ZIP Co de Phone Number [facility] [place] [address] * (ABNORMAL) CBC with auto differential (06/12/2022 8:47 PM CDT) [facility] WBC 14.6(H) 3.8 - 9.9 K/cumm [facility] Hgb 8.1(L) 13.0 - 17.5 g/dL [facility] Hct 24.7(L) 38.9 - 50.3 % [facility] Plt 207 150 - 400 K/cumm [facility] MPV 11.0 9.1 - 12.3 fL [facility] RBC 2.61(L) 4.30 - 5.80 M/cumm [facility] MCV 94.6 81.3 - 96.4 fL [facility] MCH 31.0 27.1 - 33.3 pg [facility] MCHC 32.8 32.3 - 35.7 g/dL [facility] RDW CV 13.4 11.1 - 14.9 % [facility] RDW SD 45.9 35.7 - 48.1 fL [facility] NRBC abs 0.03(H) 0.00 - 0.01 K/cumm [facility] Blood 06/12/2022 8:47 PM CDT 06/12/2022 10:10 PM CDT us Marcelina Lo SUCTION ROLLER LAB BLOOD ORDERABLES Final Re sult Performing Organization Address [facility] Co de Phone Number [facility] [place] [address] * POCT glucose (06/12/2022 8:44 PM CDT) Glucose, POC 99 70 - 199 mg/dL [facility] Blood 06/12/2022 8:44 PM CDT 06/12/2022 8:44 PM CDT Catherine Adams MD LAB POCT ORDERABLES - DEVIC E Final Result Performing Organization Address [facility] Co de Phone Number [facility] [place] [address] * POCT glucose (06/12/2022 4:01 PM CDT) Glucose, POC 110 70 - 199 mg/dL [facility] Blood 06/12/2022 4:01 PM CDT 06/12/2022 4:01 PM CDT Catherine Adams MD LAB POCT ORDERABLES - DEVIC E Final Result Performing Organization Address [facility] Co de Phone Number [facility] [place] [address] * (ABNORMAL) aPTT (06/12/2022 4:01 PM CDT) aPTT 75(H) 27 - 37 sec [facility] Comment: Interpretive Data Therapeutic heparin range: 60.0 - 94.0 seconds. Based on correlation with therapeutic heparin activity range of 0.3-0.7 Units/mL. Current interpretive data was last revised on 2020. Blood 06/12/2022 4:01 PM CDT 06/12/2022 4:27 PM CDT Narrative [facility] - 06/12/2022 4:48 PM CDT Check aPTT 6 hours after the start of Heparin infusion and 6 hours after any change in Heparin rate. (Target aPTT 61-80 seconds). Call Nephrology if outside range. Catherine Adams MD LAB BLOOD ORDERABLES Final Result Performing Organization Address [facility] de Phone Number [facility] [place] [address] * Blood gas, arterial (06/12/2022 4:01 PM CDT) pH, Art 7.42 7.35 - 7.45 [facility] PCO2, Arterial 41 35 - 45 mmHg [facility] PO2, Arterial 94 83 - 108 mmHg [facility] HCO3 Art (Calculated) 27 20 - 30 mmol/L [facility] BE, art 2 mmol/L [facility] Comment: Interpretive Data No Reference Range Established Current Interpretive Data was last revised on 2017 Blood 06/12/2022 4:01 PM CDT 06/12/2022 4:16 PM CDT Marcelina Lo NP LAB BLOOD ORDERABLES Final Re sult Performing Organization Address [facility] de Phone Number [facility] [place] [address] * Aerobic culture and gram stain Tracheal aspirate Tracheal (06/12/2022 2:31 PM CDT) Direct Specimen Exam Stain: Rare polymorphonuclear leukocytes seen. Few squamous epithelial cells seen. Rare mixed bacterial stone seen on Gram stain. [facility] Report Final Report: Insignificant growth based on current clinical standards. [facility] Tracheal aspirate (Tracheal) 06/12/2022 2:31 PM CDT 06/12/2022 3:47 PM CDT Narrative [facility] - 06/14/2022 11:49 AM CDT Testing performed by [facility] ([phone]) Specimens submitted from normally sterile body sites [...] MICROBIOLOGY - GENERAL ORDERABLES Final Result [facility] [place] [address] * XR Chest 1 View (06/12/2022 1:10 [...] Cardiac mediastinal contours are stable. Dictated by: Fenrando Reinoso M.D. The radiology attending physician has [...] pH, Art 7.41 7.35 - 7.45 [facility] PCO2, Arterial 38 35 - 45 mmHg [facility] PO2, Arterial 135(H) 83 - 108 mmHg [facility] HCO3 Art (Calculated) 25 20 - 30 mmol/L [facility] BE, art 0 mmol/L [facility] Comment: Interpretive Data No Reference Range Established Current Interpretive Data was last revised on 2017 O2 Sat Art (Measured) 97(H) 90 - 95 % [facility] Blood 06/12/2022 12:5 6 PM CDT 06/12/2022 1:02 PM CDT us Marcelina Lo SUCTION ROLLER LAB BLOOD ORDERABLES Final Re sult [facility] [place] [address] * (ABNORMAL) Blood gas, arterial (06/12/2022 11:37 AM CDT) pH, Art 7.41 7.35 - 7.45 [facility] PCO2, Arterial 40 35 - 45 mmHg [facility] PO2, Arterial 82(L) 83 - 108 mmHg [facility] HCO3 Art (Calculated) 26 20 - 30 mmol/L [facility] BE, art 0 mmol/L [facility] Comment: Interpretive Data No Reference Range Established Current Interpretive Data was last revised on 2017 O2 Sat Art (Measured) 96(H) 90 - 95 % [facility] Blood 06/12/2022 11:3 7 AM CDT 06/12/2022 11:43 AM CDT Marcelina Lo SUCTION ROLLER LAB BLOOD ORDERABLES Final Re sult Performing Organization Address [facility] de Phone Number [facility] [place] [address] * POCT glucose (06/12/2022 11:36 AM CDT) Glucose, POC 161 70 - 199 mg/dL [facility] Blood 06/12/2022 11:3 6 AM CDT 06/12/2022 11:36 AM CDT Catherine Adams MD LAB POCT ORDERABLES - DEVIC E Final Result Performing Organization Address [facility] de Phone Number [facility] [place] [address] * (ABNORMAL) Blood gas, arterial (06/12/2022 9:53 AM CDT) pH, Art 7.42 7.35 - 7.45 [facility] PCO2, Arterial 36 35 - 45 mmHg [facility] PO2, Arterial 106 83 - 108 mmHg [facility] HCO3 Art (Calculated) 25 20 - 30 mmol/L [facility] BE, art 0 mmol/L [facility] Comment: Interpretive Data No Reference Range Established Current Interpretive Data was last revised on 2017 O2 Sat Art (Measured) 98(H) 90 - 95 % [facility] Blood 06/12/2022 9:53 AM CDT 06/12/2022 10:02 AM CDT Marcelina Lo SUCTION ROLLER LAB BLOOD ORDERABLES Final Re sult [facility] [place] [address] * (ABNORMAL) Manual Differential (06/12/2022 8:02 AM CDT) Differential Manual [facility] Cells Counted 116 [facility] Neutrophil abs 9.1(H) 1.7 - 6.5 K/cumm [facility] Imm gran abs 0.8(H) 0.0 - 0.1 K/cumm [facility] Lymphocyte abs 1.9 0.8 - 3.3 K/cumm [facility] Monocyte abs 0.3 0.2 - 0.8 K/cumm [facility] Eosinophil abs 0.4 0.0 - 0.5 K/cumm [facility] Neutrophil pct 72.5 % [facility] Comment: Interpretive Data Percent cell count reference ranges are not reported, since discordance with absolute values may lead to misinterpretation of CBC data. Current Interpretive Data was last revised on 2017. Lymphocyte pct 15.5 % [facility] Comment: Interpretive Data Percent cell count reference ranges are not reported, since discordance with absolute values may lead to misinterpretation of CBC data. Current Interpretive Data was last revised on 2017. Monocyte pct 2.6 % [facility] Comment: Interpretive Data Percent cell count reference ranges are not reported, since discordance with absolute values may lead to misinterpretation of CBC data. Current Interpretive Data was last revised on 2017. Eosinophil pct 3.4 % [facility] Comment: Interpretive Data Percent cell count reference ranges are not reported, since discordance with absolute values may lead to misinterpretation of CBC data. Current Interpretive Data was last revised on 2017. Metamyelocyte pct 2.6 % [facility] Myelocyte pct 3.4 % [facility] Blood 06/12/2022 8:02 AM CDT 06/12/2022 8:32 AM CDT Catherine Adams MD LAB BLOOD ORDERABLES Final Result [facility] [place] [address] * (ABNORMAL) eGFR (06/12/2022 8:02 AM CDT) Pathologist [facility] eGFR 31(L) 90 - 130 mL/min/1. 73 m2 [facility] Comment: Interpretive Data Reference Interval Normal ?>/= [...] BLOOD ORDERABLES Final Result [facility] [place] [address] * (ABNORMAL) aPTT (06/12/2022 8:02 AM CDT) [facility] aPTT 70(H) 27 - 37 sec [facility] Comment: Interpretive Data Therapeutic heparin range: 60.0 - 94.0 seconds. Based on correlation with therapeutic heparin activity range of 0.3-0.7 Units/mL. Current interpretive data was last revised on 2020. Blood 06/12/2022 8:02 AM CDT 06/12/2022 8:15 AM CDT Narrative [facility] - 06/12/2022 8:43 AM CDT Check aPTT 6 hours after the start of Heparin infusion and 6 hours after any change in Heparin rate. (Target aPTT 61-80 seconds). Call Nephrology if outside range. us Catherine Adams MD LAB BLOOD ORDERABLES Final Result Performing Organization Address [facility] de Phone Number [facility] [place] [employer] [place] [address] * (ABNORMAL) Blood gas, arterial (06/12/2022 8:02 AM CDT) pH, Art 7.47(H) 7.35 - 7.45 [facility] PCO2, Arterial 34(L) 35 - 45 mmHg [facility] PO2, Arterial 71(L) 83 - 108 mmHg [facility] HCO3 Art (Calculated) 25 20 - 30 mmol/L [facility] BE, art 1 mmol/L [facility] Comment: Interpretive Data No Reference Range Established Current Interpretive Data was last revised on 2017 O2 Sat Art (Measured) 95 90 - 95 % [facility] Blood 06/12/2022 8:02 AM CDT 06/12/2022 8:13 AM CDT us Marcelina Lo NP LAB BLOOD ORDERABLES Final Re sult Performing Organization Address [facility] Co de Phone Number [facility] [place] [employer] [place] [address] * Magnesium (06/12/2022 8:02 AM CDT) Magnesium 2.5 1.4 - 2.5 mg/dL [facility] Blood 06/12/2022 8:02 AM CDT 06/12/2022 8:28 AM CDT us Marcelina Lo SUCTION ROLLER LAB BLOOD ORDERABLES Final Re sult [facility] [place] [address] * (ABNORMAL) Comprehensive metabolic panel (06/12/2022 8:02 AM CDT) Pathologist [facility] Sodium 135 135 - 145 mmol/L [facility] Potassium, pl 4.4 3.3 - 4.9 mmol/L [facility] Chloride 101 97 - 110 mmol/L [facility] CO2 26 22 - 32 mmol/L [facility] Anion gap 8 2 - 15 mmol/L [facility] BUN 23 8 - 25 mg/dL [facility] Creatinine 2.45(H) 0.80 - 1.30 mg/dL [facility] Glucose 157 70 - 199 mg/dL [facility] Comment: Interpretive Data Fasting glucose [...] 2017. Calcium 8.4(L) 8.5 - 10.3 mg/dL [facility] Bilirubin, total 0.7 0.1 - 1.2 mg/dL [facility] Protein, pl 5.8(L) 6.5 - 8.5 g/dL [facility] Albumin 2.6(L) 3.5 - 5.0 g/dL [facility] Alk phos 248(H) 40 - 130 Units/L [facility] ALT 49 7 - 55 Units/L [facility] AST 95(H) 10 - 50 Units/L [facility] Blood 06/12/2022 8:02 AM CDT 06/12/2022 8:28 AM CDT Marcelina Lo SUCTION ROLLER LAB BLOOD ORDERABLES Final Re sult Performing Organization Address City/[facility]/ZIP Co de Phone Number [facility] [place] [address] * (ABNORMAL) CBC with auto differential (06/12/2022 8:02 AM CDT) WBC 12.5(H) 3.8 - 9.9 K/cumm [facility] Hgb 7.5(L) 13.0 - 17.5 g/dL [facility] Hct 22.3(L) 38.9 - 50.3 % [facility] Plt 174 150 - 400 K/cumm [facility] MPV 11.0 9.1 - 12.3 fL [facility] RBC 2.36(L) 4.30 - 5.80 M/cumm [facility] MCV 94.5 81.3 - 96.4 fL [facility] MCH 31.8 27.1 - 33.3 pg [facility] MCHC 33.6 32.3 - 35.7 g/dL [facility] RDW CV 13.5 11.1 - 14.9 % [facility] RDW SD 45.5 35.7 - 48.1 fL [facility] NRBC abs 0.02(H) 0.00 - 0.01 K/cumm [facility] Blood 06/12/2022 8:02 AM CDT 06/12/2022 8:27 AM CDT Marcelina Lo SUCTION ROLLER LAB BLOOD ORDERABLES Final Re sult [facility] [place] [address] * POCT glucose (06/12/2022 8:01 AM CDT) Glucose, POC 143 70 - 199 mg/dL [facility] Blood 06/12/2022 8:01 AM CDT 06/12/2022 8:01 AM CDT us Catherine Adams MD LAB POCT ORDERABLES - DEVIC E Final Result Performing Organization Address [facility] de Phone Number [facility] [place] [address] * (ABNORMAL) Blood gas, arterial (06/12/2022 6:21 AM CDT) pH, Art 7.41 7.35 - 7.45 [facility] PCO2, Arterial 40 35 - 45 mmHg [facility] PO2, Arterial 86 83 - 108 mmHg [facility] HCO3 Art (Calculated) 26 20 - 30 mmol/L [facility] BE, art 1 mmol/L [facility] Comment: Interpretive Data No Reference Range Established Current Interpretive Data was last revised on 2017 O2 Sat Art (Measured) 96(H) 90 - 95 % [facility] Blood 06/12/2022 6:21 AM CDT 06/12/2022 6:29 AM CDT Result [facility] us Catherine Adams MD LAB BLOOD ORDERABLES Final Result Performing Organization Address [facility] de Phone Number [facility] [place] [address] * POCT glucose (06/12/2022 4:57 AM CDT) Glucose, POC 163 70 - 199 mg/dL [facility] Blood 06/12/2022 4:57 AM CDT 06/12/2022 4:57 AM CDT us Catherine Adams MD LAB POCT ORDERABLES - DEVIC E Final Result Performing Organization Address [facility] [place] [address] * (ABNORMAL) aPTT (06/12/2022 1:52 AM CDT) aPTT 52(H) 27 - 37 sec [facility] Comment: Interpretive Data Therapeutic heparin range: 60.0 - 94.0 seconds. Based on correlation with therapeutic heparin activity range of 0.3-0.7 Units/mL. Current interpretive data was last revised on 2020. Blood 06/12/2022 1:52 AM CDT 06/12/2022 2:15 AM CDT Narrative [facility] - 06/12/2022 2:39 AM CDT Check aPTT 6 hours after the start of Heparin infusion and 6 hours after any change in Heparin rate. (Target aPTT 61-80 seconds). Call Nephrology if outside range. Catherine Adams MD LAB BLOOD ORDERABLES Final Result Performing Organization Address [facility] [place] [address] * (ABNORMAL) POCT glucose (06/11/2022 11:32 PM CDT) Glucose, POC 206(H) 70 - 199 mg/dL [facility] Blood 06/11/2022 11:3 2 PM CDT 06/11/2022 11:32 PM CDT Catherine Adams MD LAB POCT ORDERABLES - DEVIC E Final Result Performing Organization Address [facility] Co de Phone Number [facility] [place] [address] * (ABNORMAL) Manual Differential (06/11/2022 11:25 PM CDT) Differential Manual [facility] Cells Counted 119 [facility] Neutrophil abs 10.8(H) 1.7 - 6.5 K/cumm [facility] Imm gran abs 0.6(H) 0.0 - 0.1 K/cumm [facility] Lymphocyte abs 1.4 0.8 - 3.3 K/cumm [facility] Monocyte abs 0.6 0.2 - 0.8 K/cumm [facility] Eosinophil abs 0.2 0.0 - 0.5 K/cumm [facility] Neutrophil pct 79.9 % [facility] Comment: Interpretive Data Percent cell count reference ranges are not reported, since discordance with absolute values may lead to misinterpretation of CBC data. Current Interpretive Data was last revised on 2017. Lymphocyte pct 10.1 % [facility] Comment: Interpretive Data Percent cell count reference ranges are not reported, since discordance with absolute values may lead to misinterpretation of CBC data. Current Interpretive Data was last revised on 2017. Monocyte pct 4.2 % [facility] Comment: Interpretive Data Percent cell count reference ranges are not reported, since discordance with absolute values may lead to misinterpretation of CBC data. Current Interpretive Data was last revised on 2017. Eosinophil pct 1.7 % [facility] Comment: Interpretive Data Percent cell count reference ranges are not reported, since discordance with absolute values may lead to misinterpretation of CBC data. Current Interpretive Data was last revised on 2017. Metamyelocyte pct 0.8 % [facility] Myelocyte pct 2.5 % [facility] Promyelocyte pct 0.8 % [facility] Blood 06/11/2022 11:2 5 PM CDT 06/11/2022 11:39 PM CDT us Jeffrey Green MD LAB BLOOD ORDERABLES Final Result [facility] [place] [address] * (ABNORMAL) CBC with auto differential (06/11/2022 11:25 PM CDT) Pathologist [facility] WBC 13.5(H) 3.8 - 9.9 K/cumm [facility] Hgb 7.9(L) 13.0 - 17.5 g/dL [facility] Hct 23.7(L) 38.9 - 50.3 % [facility] Plt 188 150 - 400 K/cumm [facility] MPV 10.7 9.1 - 12.3 fL [facility] RBC 2.55(L) 4.30 - 5.80 M/cumm [facility] MCV 92.9 81.3 - 96.4 fL [facility] MCH 31.0 27.1 - 33.3 pg [facility] MCHC 33.3 32.3 - 35.7 g/dL [facility] RDW CV 13.3 11.1 - 14.9 % [facility] RDW SD 45.1 35.7 - 48.1 fL [facility] NRBC abs 0.02(H) 0.00 - 0.01 K/cumm [facility] Blood 06/11/2022 11:2 5 PM CDT 06/11/2022 11:35 PM CDT Jeffrey Green MD LAB BLOOD ORDERABLES Final Result [facility] [place] [address] * (ABNORMAL) Blood gas, arterial (06/11/2022 11:25 PM CDT) [facility] pH, Art 7.37 7.35 - 7.45 [facility] PCO2, Arterial 41 35 - 45 mmHg [facility] PO2, Arterial 91 83 - 108 mmHg [facility] HCO3 Art (Calculated) 24 20 - 30 mmol/L [facility] BE, art -1 mmol/L [facility] Comment: Interpretive Data No Reference Range Established Current Interpretive Data was last revised on 2017 O2 Sat Art (Measured) 97(H) 90 - 95 % [facility] Blood 06/11/2022 11:2 5 PM CDT 06/11/2022 11:31 PM CDT Marcelina Lo SUCTION ROLLER LAB BLOOD ORDERABLES Final Re sult Performing Organization Address [facility] Co de Phone Number [facility] [place] [address] * (ABNORMAL) Blood gas, arterial (06/11/2022 8:17 PM CDT) pH, Art 7.38 7.35 - 7.45 [facility] PCO2, Arterial 39 35 - 45 mmHg [facility] PO2, Arterial 111(H) 83 - 108 mmHg [facility] HCO3 Art (Calculated) 23 20 - 30 mmol/L [facility] BE, art -2 mmol/L [facility] Comment: Interpretive Data No Reference Range Established Current Interpretive Data was last revised on 2017 O2 Sat Art (Measured) 98(H) 90 - 95 % [facility] Blood 06/11/2022 8:17 PM CDT 06/11/2022 8:23 PM CDT Marcelina Lo SUCTION ROLLER LAB BLOOD ORDERABLES Final Re sult Performing Organization Address [facility] [place] [address] * Lactate, whole blood (06/11/2022 8:17 PM CDT) Pathologist [facility] Lactate, bld 0.8 0.7 - 2.0 mmol/L [facility] Blood 06/11/2022 8:17 PM CDT 06/11/2022 8:23 PM CDT Marcelina Lo SUCTION ROLLER LAB BLOOD ORDERABLES Final Re sult Performing Organization Address [facility] Co de Phone Number [facility] [place] [address] * (ABNORMAL) eGFR (06/11/2022 8:12 PM CDT) eGFR 24(L) 90 - 130 mL/min/1. 73 m2 [facility] Comment: Interpretive Data Reference Interval Normal [...] Adams MD LAB BLOOD ORDERABLES Final Result [facility] [place] [address] * Magnesium (06/11/2022 8:12 PM CDT) Magnesium 2.5 1.4 - 2.5 mg/dL [facility] Blood 06/11/2022 8:12 PM CDT 06/11/2022 8:23 PM CDT us Catherine Adams MD LAB BLOOD ORDERABLES Final Result [facility] [place] [address] * (ABNORMAL) Comprehensive metabolic panel (06/11/2022 8:12 PM CDT) Pathologist [facility] Sodium 135 135 - 145 mmol/L [facility] Potassium, pl 4.7 3.3 - 4.9 mmol/L [facility] Chloride 101 97 - 110 mmol/L [facility] CO2 23 22 - 32 mmol/L [facility] Anion gap 11 2 - 15 mmol/L [facility] BUN 28(H) 8 - 25 mg/dL [facility] Creatinine 3.01(H) 0.80 - 1.30 mg/dL [facility] Glucose 185 70 - 199 mg/dL [facility] Comment: Interpretive Data Fasting glucose [...] Calcium 8.1(L) 8.5 - 10.3 mg/dL [facility] Bilirubin, total 0.9 0.1 - 1.2 mg/dL [facility] Protein, pl 5.5(L) 6.5 - 8.5 g/dL [facility] Albumin 2.3(L) 3.5 - 5.0 g/dL [facility] Alk phos 211(H) 40 - 130 Units/L [facility] ALT 45 7 - 55 Units/L [facility] AST 95(H) 10 - 50 Units/L [facility] Blood 06/11/2022 8:12 PM CDT 06/11/2022 8:23 PM CDT Catherine Adams MD LAB BLOOD ORDERABLES Final Result Performing Organization Address [facility] de Phone Number [facility] [place] [address] * (ABNORMAL) Triglycerides (06/11/2022 8:12 PM CDT) Triglycerides 345(H) <=149 mg/dL [facility] Comment: Interpretive Data Ages < [...] PM CDT 06/11/2022 8:23 PM CDT Narrative [facility] - 06/11/2022 8:53 PM CDT While on propofol infusion. Catherine Adams MD LAB BLOOD ORDERABLES Final Result Performing Organization Address City/[facility] de Phone Number [facility] [place] [address] * Phosphorus (06/11/2022 8:12 PM CDT) Phosphorus, pl 4.4 2.3 - 4.5 mg/dL [facility] Blood 06/11/2022 8:12 PM CDT 06/11/2022 8:23 PM CDT Marcelina Lo SUCTION ROLLER LAB BLOOD ORDERABLES Final Re sult Performing Organization Address City/[facility]/[place] [address] * Beta-hydroxybutyrate (06/11/2022 8:12 PM CDT) [facility] Beta-Hydroxybut yrate 0.3 0.0 - 0.5 mmol/L [facility] Blood 06/11/2022 8:12 PM CDT 06/11/2022 8:23 PM CDT Marcelina Lo SUCTION ROLLER LAB BLOOD ORDERABLES Edited R esult - Final Performing Organization Address [facility] [place] [address] * Lipase (06/11/2022 8:12 PM CDT) Pathologist [facility] Lipase 15 10 - 99 Units/L [facility] Blood 06/11/2022 8:12 PM CDT 06/11/2022 8:23 PM CDT Marcelina Lo SUCTION ROLLER LAB BLOOD ORDERABLES Final Re sult Performing Organization Address [facility] Co de Phone Number [facility] [place] [address] * POCT glucose (06/11/2022 8:07 PM CDT) Glucose, POC 169 70 - 199 mg/dL [facility] Blood 06/11/2022 8:07 PM CDT 06/11/2022 8:07 PM CDT Catherine Adams MD LAB POCT ORDERABLES - DEVIC E Final Result [facility] [place] [address] * XR Chest 1 View (06/11/2022 4:07 PM CDT) Anatomical Region Laterality Modality Body, Chest N/A Computed Radiogr aphy 06/11/2022 5:24 PM CDT Impressions 06/11/2022 5:24 PM CDT Comparison made to examination of 06/11/2022 at 0543 hours Tip of the endotracheal tube projects approximately 5.5 cm above the boni. ??Nasogastric tube extends below the diaphragm with the tip excluded from the [id number]. ??Left internal jugular catheter projects at superior [...] diaphragm with the tip excluded from the [id number]. Left internal jugular catheter projects at superior [...] Potassium, bld 4.5 3.3 - 4.9 mmol/L [facility] Blood 06/11/2022 3:21 PM CDT 06/11/2022 3:29 PM CDT Marcelina Lo SUCTION ROLLER LAB BLOOD ORDERABLES Final Re sult [facility] [place] [address] * Lactate, whole blood (06/11/2022 3:21 PM CDT) Pathologist [facility] Lactate, bld 0.9 0.7 - 2.0 mmol/L [facility] Blood 06/11/2022 3:21 PM CDT 06/11/2022 3:29 PM CDT Marcelina Lo SUCTION ROLLER LAB BLOOD ORDERABLES Final Re sult Performing Organization Address City/[facility]/ZIP Co de Phone Number [facility] [place] [employer] [place] [address] * (ABNORMAL) Blood gas, arterial (06/11/2022 3:21 PM CDT) pH, Art 7.39 7.35 - 7.45 [facility] PCO2, Arterial 39 35 - 45 mmHg [facility] PO2, Arterial 92 83 - 108 mmHg [facility] HCO3 Art (Calculated) 24 20 - 30 mmol/L [facility] BE, art -1 mmol/L [facility] Comment: Interpretive Data No Reference Range Established Current Interpretive Data was last revised on 2017 O2 Sat Art (Measured) 96(H) 90 - 95 % [facility] Blood 06/11/2022 3:21 PM CDT 06/11/2022 3:29 PM CDT Marcelina Lo NP LAB BLOOD ORDERABLES Final Re sult Performing Organization Address [facility] de Phone Number [facility] [place] [address] * aPTT (06/11/2022 3:21 PM CDT) aPTT 30 27 - 37 sec [facility] Comment: Interpretive Data Therapeutic heparin range: 60.0 - 94.0 seconds. Based on correlation with therapeutic heparin activity range of 0.3-0.7 Units/mL. Current interpretive data was last revised on 2020. Blood 06/11/2022 3:21 PM CDT 06/11/2022 3:30 PM CDT Catherine Adams MD LAB BLOOD ORDERABLES Final Result Performing Organization Address [facility] de Phone Number [facility] [place] [address] * Protime-INR (06/11/2022 3:21 PM CDT) PT 10.7 9.2 - 13.5 sec [facility] INR 1.0 0.9 - 1.2 [facility] Comment: Interpretive data Oral anticoagulant therapeutic ranges: Venous thromboembolism prophylaxis or treatment: 2.0-3.0 CARDIOLOGY Standard range: 2.0-3.0 High-intensity range: 2.5-3.5 Refer to indication-specific guidelines for appropriate target ranges for prosthetic heart valve replacement. Current interpretive data was last revised on 2019. Blood 06/11/2022 3:21 PM CDT 06/11/2022 3:30 PM CDT Cathernie Adams MD LAB BLOOD ORDERABLES Final Result Performing Organization Address City/[facility] Co de Phone Number [facility] [place] [address] * (ABNORMAL) CBC without differential (06/11/2022 3:21 PM CDT) WBC 10.7(H) 3.8 - 9.9 K/cumm [facility] Hgb 7.6(L) 13.0 - 17.5 g/dL [facility] Hct 22.8(L) 38.9 - 50.3 % [facility] Plt 175 150 - 400 K/cumm [facility] MPV 10.7 9.1 - 12.3 fL [facility] RBC 2.45(L) 4.30 - 5.80 M/cumm [facility] MCV 93.1 81.3 - 96.4 fL [facility] MCH 31.0 27.1 - 33.3 pg [facility] MCHC 33.3 32.3 - 35.7 g/dL [facility] RDW CV 13.1 11.1 - 14.9 % [facility] RDW SD 44.3 35.7 - 48.1 fL [facility] NRBC abs 0.02(H) 0.00 - 0.01 K/cumm [facility] Blood 06/11/2022 3:21 PM CDT 06/11/2022 3:30 PM CDT Catherine Adams MD LAB BLOOD ORDERABLES Final Result [facility] [place] [address] * POCT glucose (06/11/2022 3:20 PM CDT) Glucose, POC 130 70 - 199 mg/dL [facility] Blood 06/11/2022 3:20 PM CDT 06/11/2022 3:20 PM CDT Catherine Adams MD LAB POCT ORDERABLES - DEVIC E Final Result [facility] [place] [address] * CT Chest Abdomen Pelvis WO Contrast [...] CDT) pH, Art 7.38 7.35 - 7.45 [facility] PCO2, Arterial 37 35 - 45 mmHg [facility] PO2, Arterial 139(H) 83 - 108 mmHg [facility] HCO3 Art (Calculated) 22 20 - 30 mmol/L [facility] BE, art -3 mmol/L [facility] Comment: Interpretive Data No Reference Range Established Current Interpretive Data was last revised on 2017 O2 Sat Art (Measured) 98(H) 90 - 95 % [facility] Blood 06/11/2022 12:1 1 PM CDT 06/11/2022 12:23 PM CDT Catherine Adams MD LAB BLOOD ORDERABLES Final Result [facility] [place] [address] * POCT glucose (06/11/2022 12:10 PM CDT) Glucose, POC 142 70 - 199 mg/dL [facility] Blood 06/11/2022 12:1 0 PM CDT 06/11/2022 12:10 PM CDT us Catherine Adams MD LAB POCT ORDERABLES - DEVIC E Final Result [facility] [place] [address] * (ABNORMAL) Manual Differential (06/11/2022 8:48 AM CDT) Differential Manual [facility] Cells Counted 120 [facility] Neutrophil abs 7.3(H) 1.7 - 6.5 K/cumm [facility] Imm gran abs 1.0(H) 0.0 - 0.1 K/cumm [facility] Lymphocyte abs 1.4 0.8 - 3.3 K/cumm [facility] Monocyte abs 0.4 0.2 - 0.8 K/cumm [facility] Eosinophil abs 0.3 0.0 - 0.5 K/cumm [facility] Neutrophil pct 70.0 % [facility] Comment: Interpretive Data Percent cell count reference ranges are not reported, since discordance with absolute values may lead to misinterpretation of CBC data. Current Interpretive Data was last revised on 2017. Lymphocyte pct 13.3 % [facility] Comment: Interpretive Data Percent cell count reference ranges are not reported, since discordance with absolute values may lead to misinterpretation of CBC data. Current Interpretive Data was last revised on 2017. Monocyte pct 4.2 % [facility] Comment: Interpretive Data Percent cell count reference ranges are not reported, since discordance with absolute values may lead to misinterpretation of CBC data. Current Interpretive Data was last revised on 2017. Eosinophil pct 3.3 % [facility] Comment: Interpretive Data Percent cell count reference ranges are not reported, since discordance with absolute values may lead to misinterpretation of CBC data. Current Interpretive Data was last revised on 2017. Metamyelocyte pct 6.7 % [facility] Myelocyte pct 2.5 % [facility] Blood 06/11/2022 8:48 AM CDT 06/11/2022 9:14 AM CDT us Catherine Adams MD LAB BLOOD ORDERABLES Final Result Performing Organization Address [facility] Co de Phone Number [facility] [place] [address] * (ABNORMAL) eGFR (06/11/2022 8:48 AM CDT) eGFR 30(L) 90 - 130 mL/min/1. 73 m2 [facility] Comment: Interpretive Data Reference Interval Normal ?>/= [...] BLOOD ORDERABLES Final Result Performing Organization Address City/[facility]/ZIP Co de Phone Number [facility] [place] [address] * Lactate, whole blood (06/11/2022 8:48 AM CDT) Pathologist [facility] Lactate, bld 1.1 0.7 - 2.0 mmol/L [facility] Blood 06/11/2022 8:48 AM CDT 06/11/2022 8:55 AM CDT Marcelina Lo SUCTION ROLLER LAB BLOOD ORDERABLES Final Re sult [facility] [place] [address] * Magnesium (06/11/2022 8:48 AM CDT) [facility] Magnesium 2.5 1.4 - 2.5 mg/dL [facility] Blood 06/11/2022 8:48 AM CDT 06/11/2022 9:02 AM CDT Marcelina Lo SUCTION ROLLER LAB BLOOD ORDERABLES Final Re sult Performing Organization Address City/[facility]/ZIP Co de Phone Number [facility] [place] [address] * (ABNORMAL) Comprehensive metabolic panel (06/11/2022 8:48 AM CDT) [facility] Sodium 134(L) 135 - 145 mmol/L [facility] Potassium, pl 4.8 3.3 - 4.9 mmol/L [facility] Chloride 100 97 - 110 mmol/L [facility] CO2 23 22 - 32 mmol/L [facility] Anion gap 11 2 - 15 mmol/L [facility] BUN 22 8 - 25 mg/dL [facility] Creatinine 2.53(H) 0.80 - 1.30 mg/dL [facility] Glucose 175 70 - 199 mg/dL [facility] Comment: Interpretive Data Fasting glucose [...] 2017. Calcium 8.4(L) 8.5 - 10.3 mg/dL [facility] Bilirubin, total 0.9 0.1 - 1.2 mg/dL [facility] Protein, pl 6.0(L) 6.5 - 8.5 g/dL [facility] Albumin 2.8(L) 3.5 - 5.0 g/dL [facility] Alk phos 200(H) 40 - 130 Units/L [facility] ALT 47 7 - 55 Units/L [facility] AST 100(H) 10 - 50 Units/L [facility] Blood 06/11/2022 8:48 AM CDT 06/11/2022 9:02 AM CDT us Marcelina Lo SUCTION ROLLER LAB BLOOD ORDERABLES Final Re sult [facility] [place] [address] * (ABNORMAL) CBC with auto differential (06/11/2022 8:48 AM CDT) WBC 10.4(H) 3.8 - 9.9 K/cumm [facility] Hgb 7.8(L) 13.0 - 17.5 g/dL [facility] Hct 23.4(L) 38.9 - 50.3 % [facility] Plt 191 150 - 400 K/cumm [facility] MPV 10.7 9.1 - 12.3 fL [facility] RBC 2.49(L) 4.30 - 5.80 M/cumm [facility] MCV 94.0 81.3 - 96.4 fL [facility] MCH 31.3 27.1 - 33.3 pg [facility] MCHC 33.3 32.3 - 35.7 g/dL [facility] RDW CV 13.2 11.1 - 14.9 % [facility] RDW SD 45.3 35.7 - 48.1 fL [facility] NRBC abs 0.03(H) 0.00 - 0.01 K/cumm [facility] Blood 06/11/2022 8:48 AM CDT 06/11/2022 9:02 AM CDT us Marcelina Lo NP LAB BLOOD ORDERABLES Final Re sult Performing Organization Address City/[facility]/ZIP Co de Phone Number [facility] [place] [address] * POCT glucose (06/11/2022 8:46 AM CDT) Glucose, POC 169 70 - 199 mg/dL [facility] Blood 06/11/2022 8:46 AM CDT 06/11/2022 8:46 AM CDT us Catherine Adams MD LAB POCT ORDERABLES - DEVIC E Final Result Performing Organization Address [facility] Co de Phone Number [facility] [place] [address] * (ABNORMAL) Blood gas, arterial (06/11/2022 6:34 AM CDT) pH, Art 7.43 7.35 - 7.45 [facility] PCO2, Arterial 34(L) 35 - 45 mmHg [facility] PO2, Arterial 87 83 - 108 mmHg [facility] HCO3 Art (Calculated) 24 20 - 30 mmol/L [facility] BE, art -1 mmol/L [facility] Comment: Interpretive Data No Reference Range Established Current Interpretive Data was last revised on 2017 O2 Sat Art (Measured) 97(H) 90 - 95 % [facility] Blood 06/11/2022 6:34 AM CDT 06/11/2022 6:44 AM CDT Catherine Adams MD LAB BLOOD ORDERABLES Final Result ALESSANDRA AVILA [facility] [place] [address] * XR Chest 1 View (06/11/2022 5:48 [...] CDT) pH, Art 7.42 7.35 - 7.45 [facility] PCO2, Arterial 36 35 - 45 mmHg [facility] PO2, Arterial 115(H) 83 - 108 mmHg [facility] HCO3 Art (Calculated) 24 20 - 30 mmol/L [facility] BE, art -1 mmol/L [facility] Comment: Interpretive Data No Reference Range Established Current Interpretive Data was last revised on 2017 O2 Sat Art (Measured) 98(H) 90 - 95 % [facility] Blood 06/11/2022 3:31 AM CDT 06/11/2022 4:00 AM CDT Marcelina Lo SUCTION ROLLER LAB BLOOD ORDERABLES Final Re sult Performing Organization Address [facility] de Phone Number [facility] [place] [address] * Lactate, whole blood (06/11/2022 3:31 AM CDT) Pathologist [facility] Lactate, bld 1.1 0.7 - 2.0 mmol/L [facility] Blood 06/11/2022 3:31 AM CDT 06/11/2022 4:00 AM CDT us Marcelina Lo SUCTION ROLLER LAB BLOOD ORDERABLES Final Re sult Performing Organization Address [facility] de Phone Number [facility] [place] [address] * POCT glucose (06/11/2022 3:28 AM CDT) Glucose, POC 155 70 - 199 mg/dL [facility] Blood 06/11/2022 3:28 AM CDT 06/11/2022 3:28 AM CDT Catherine Adams MD LAB POCT ORDERABLES - DEVIC E Final Result Performing Organization Address [facility] Co de Phone Number [facility] [place] [address] * Blood culture Blood Antecubital, right (06/11/2022 [...] organism identification may be performed using the Sportmaniacsigene Gram-Positive Blood Culture Assay. This assay detects microbial DNA in positive blood culture broth via hybridization of target DNA to capture oligonucleotides on a microarray. This assay has been cleared by the [place] Food and Drug Administration and its performance characteristics have been verified by the [facility] Microbiology Laboratory. 5. ?For questions about this culture, contact the Microbiology Laboratory at [phone]. Interpretive data was last revised on 2020. Catherine Adams MD LAB MICROBIOLOGY - GENERAL ORDERABLES Final Result ALESSANDRA CARRION [facility] [place] [address] * Blood culture Blood Antecubital, left (06/11/2022 [...] organism identification may be performed using the Sportmaniacsigene Gram-Positive Blood Culture Assay. This assay detects microbial DNA in positive blood culture broth via hybridization of target DNA to capture oligonucleotides on a microarray. This assay has been cleared by the [place] Food and Drug Administration and its performance characteristics have been verified by the [facility] Microbiology Laboratory. 5. ?For questions about this culture, contact the Microbiology Laboratory at [phone]. Interpretive data was last revised on 2020. us Catherine Adams MD LAB MICROBIOLOGY - GENERAL ORDERABLES Final Result ALESSANDRA CARRION [facility] [place] [address] * POCT glucose (06/11/2022 12:49 AM CDT) Glucose, POC 165 70 - 199 mg/dL [facility] Blood 06/11/2022 12:4 9 AM CDT 06/11/2022 12:49 AM CDT us Catherine Adams MD LAB POCT ORDERABLES - DEVIC E Final Result Performing Organization Address [facility] de Phone Number [facility] [place] [address] * POCT glucose (06/10/2022 10:28 PM CDT) Glucose, POC 163 70 - 199 mg/dL [facility] Blood 06/10/2022 10:2 8 PM CDT 06/10/2022 10:28 PM CDT us Catherine Adams MD LAB POCT ORDERABLES - DEVIC E Final Result Performing Organization Address [facility] de Phone Number [facility] [place] [address] * (ABNORMAL) eGFR (06/10/2022 10:27 PM CDT) Pathologist [facility] eGFR 33(L) 90 - 130 mL/min/1. 73 m2 [facility] Comment: Interpretive Data Reference Interval [...] Adams MD LAB BLOOD ORDERABLES Final Result [facility] [place] [address] * (ABNORMAL) Manual Differential (06/10/2022 10:27 PM CDT) Differential Manual [facility] Cells Counted 118 [facility] Neutrophil abs 13.0(H) 1.7 - 6.5 K/cumm [facility] Imm gran abs 0.6(H) 0.0 - 0.1 K/cumm [facility] Lymphocyte abs 1.3 0.8 - 3.3 K/cumm [facility] Monocyte abs 1.5(H) 0.2 - 0.8 K/cumm [facility] Eosinophil abs 0.7(H) 0.0 - 0.5 K/cumm [facility] Basophil abs 0.1 0.0 - 0.1 K/cumm [facility] Neutrophil pct 75.6 % [facility] Comment: Interpretive Data Percent cell count reference ranges are not reported, since discordance with absolute values may lead to misinterpretation of CBC data. Current Interpretive Data was last revised on 2017. Lymphocyte pct 7.6 % [facility] Comment: Interpretive Data Percent cell count reference ranges are not reported, since discordance with absolute values may lead to misinterpretation of CBC data. Current Interpretive Data was last revised on 2017. Monocyte pct 8.5 % [facility] Comment: Interpretive Data Percent cell count reference ranges are not reported, since discordance with absolute values may lead to misinterpretation of CBC data. Current Interpretive Data was last revised on 2017. Eosinophil pct 4.2 % [facility] Comment: Interpretive Data Percent cell count reference ranges are not reported, since discordance with absolute values may lead to misinterpretation of CBC data. Current Interpretive Data was last revised on 2017. Basophil pct 0.8 % [facility] Comment: Interpretive Data Percent cell count reference ranges are not reported, since discordance with absolute values may lead to misinterpretation of CBC data. Current Interpretive Data was last revised on 2017. Metamyelocyte pct 1.7 % [facility] Myelocyte pct 0.8 % [facility] Promyelocyte pct 0.8 % [facility] Blood 06/10/2022 10:2 7 PM CDT 06/10/2022 10:44 PM CDT Catherine Adams MD LAB BLOOD ORDERABLES Final Result [facility] [place] [address] * (ABNORMAL) Comprehensive metabolic panel (06/10/2022 10:27 PM CDT) Sodium 136 135 - 145 mmol/L [facility] Potassium, pl 4.9 3.3 - 4.9 mmol/L [facility] Chloride 99 97 - 110 mmol/L [facility] CO2 25 22 - 32 mmol/L [facility] Anion gap 12 2 - 15 mmol/L [facility] BUN 20 8 - 25 mg/dL [facility] Creatinine 2.33(H) 0.80 - 1.30 mg/dL [facility] Glucose 158 70 - 199 mg/dL [facility] Comment: Interpretive Data Fasting glucose [...] 2017. Calcium 8.6 8.5 - 10.3 mg/dL [facility] Bilirubin, total 1.0 0.1 - 1.2 mg/dL [facility] Protein, pl 6.2(L) 6.5 - 8.5 g/dL [facility] Albumin 3.1(L) 3.5 - 5.0 g/dL [facility] Alk phos 216(H) 40 - 130 Units/L [facility] ALT 49 7 - 55 Units/L [facility] AST 114(H) 10 - 50 Units/L [facility] Blood 06/10/2022 10:2 7 PM CDT 06/10/2022 10:37 PM CDT Catherine Adams MD LAB BLOOD ORDERABLES Final Result Performing Organization Address City/[facility]/ZIP Co de Phone Number [facility] [place] [employer] [place] [address] * Magnesium (06/10/2022 10:27 PM CDT) Magnesium 2.5 1.4 - 2.5 mg/dL [facility] Blood 06/10/2022 10:2 7 PM CDT 06/10/2022 10:37 PM CDT Catherine Adams MD LAB BLOOD ORDERABLES Final Result [facility] [place] [address] * Lactate, whole blood (06/10/2022 10:27 PM CDT) Lactate, bld 1.1 0.7 - 2.0 mmol/L [facility] Blood 06/10/2022 10:2 7 PM CDT 06/10/2022 10:36 PM CDT Marcelina Lo SUCTION ROLLER LAB BLOOD ORDERABLES Final Re sult Performing Organization Address City/[facility] Co de Phone Number [facility] [place] [employer] [place] [address] * (ABNORMAL) Blood gas, arterial (06/10/2022 10:27 PM CDT) Pathologist [facility] pH, Art 7.39 7.35 - 7.45 [facility] PCO2, Arterial 37 35 - 45 mmHg [facility] PO2, Arterial 98 83 - 108 mmHg [facility] HCO3 Art (Calculated) 23 20 - 30 mmol/L [facility] BE, art -2 mmol/L [facility] Comment: Interpretive Data No Reference Range Established Current Interpretive Data was last revised on 2017 O2 Sat Art (Measured) 97(H) 90 - 95 % [facility] Blood 06/10/2022 10:2 7 PM CDT 06/10/2022 10:36 PM CDT Marcelina Lo SUCTION ROLLER LAB BLOOD ORDERABLES Final Re sult Performing Organization Address [facility] Co de Phone Number [facility] [employer] [address] * Phosphorus (06/10/2022 10:27 PM CDT) Pathologist [facility] Phosphorus, pl 3.6 2.3 - 4.5 mg/dL [facility] Blood 06/10/2022 10:2 7 PM CDT 06/10/2022 10:37 PM CDT Marcelina Lo SUCTION ROLLER LAB BLOOD ORDERABLES Final Re sult Performing Organization Address City/[facility]/ZIP Co de Phone Number [facility] [place] [employer] [address] * (ABNORMAL) Beta-hydroxybutyrate (06/10/2022 10:27 PM CDT) [facility] Beta-Hydroxybut yrate 1.1(H) 0.0 - 0.5 mmol/L [facility] Blood 06/10/2022 10:2 7 PM CDT 06/10/2022 10:37 PM CDT Marcelina Lo SUCTION ROLLER LAB BLOOD ORDERABLES Edited R esult - Final Performing Organization Address [facility]/ZIP Co de Phone Number [facility] [place] [address] * Lipase (06/10/2022 10:27 PM CDT) [facility] Lipase 26 10 - 99 Units/L [facility] Blood 06/10/2022 10:2 7 PM CDT 06/10/2022 10:37 PM CDT Marcelina Lo SUCTION ROLLER LAB BLOOD ORDERABLES Final Re sult Performing Organization Address [facility] de Phone Number [facility] [place] [address] * (ABNORMAL) CBC with auto differential (06/10/2022 10:27 PM CDT) [facility] WBC 17.2(H) 3.8 - 9.9 K/cumm [facility] Hgb 9.0(L) 13.0 - 17.5 g/dL [facility] Hct 27.0(L) 38.9 - 50.3 % [facility] Plt 274 150 - 400 K/cumm [facility] MPV 10.7 9.1 - 12.3 fL [facility] RBC 2.88(L) 4.30 - 5.80 M/cumm [facility] MCV 93.8 81.3 - 96.4 fL [facility] MCH 31.3 27.1 - 33.3 pg [facility] MCHC 33.3 32.3 - 35.7 g/dL [facility] RDW CV 13.5 11.1 - 14.9 % [facility] RDW SD 46.1 35.7 - 48.1 fL [facility] NRBC abs 0.08(H) 0.00 - 0.01 K/cumm [facility] Blood 06/10/2022 10:2 7 PM CDT 06/10/2022 10:37 PM CDT us Marcelina Lo SUCTION ROLLER LAB BLOOD ORDERABLES Final Re sult Performing Organization Address City/[facility]/ZIP Co de Phone Number [facility] [place] [address] * POCT glucose (06/10/2022 5:13 PM CDT) Glucose, POC 106 70 - 199 mg/dL [facility] Blood 06/10/2022 5:13 PM CDT 06/10/2022 5:13 PM CDT us Catherine Adams MD LAB POCT ORDERABLES - DEVIC E Final Result Performing Organization Address City/[facility]/ZIP Co de Phone Number [facility] [place] [address] * (ABNORMAL) Triglycerides (06/10/2022 5:13 PM CDT) Triglycerides 401(H) <=149 mg/dL [facility] Comment: Interpretive Data Ages < [...] PM CDT 06/10/2022 5:39 PM CDT Narrative [facility] - 06/10/2022 6:07 PM CDT While on propofol infusion. us Catherine Adams MD LAB BLOOD ORDERABLES Final Result Performing Organization Address [facility] de Phone Number [facility] [place] [address] * (ABNORMAL) Blood gas, arterial (06/10/2022 2:24 PM CDT) pH, Art 7.38 7.35 - 7.45 [facility] PCO2, Arterial 39 35 - 45 mmHg [facility] PO2, Arterial 66(L) 83 - 108 mmHg [facility] HCO3 Art (Calculated) 24 20 - 30 mmol/L [facility] BE, art -2 mmol/L [facility] Comment: Interpretive Data No Reference Range Established Current Interpretive Data was last revised on 2017 O2 Sat Art (Measured) 91 90 - 95 % [facility] Blood 06/10/2022 2:24 PM CDT 06/10/2022 2:31 PM CDT us Marcelina Lo NP LAB BLOOD ORDERABLES Final Re sult Performing Organization Address [facility] Co de Phone Number [facility] [place] [place] [address] * POCT glucose (06/10/2022 1:13 PM CDT) Glucose, POC 189 70 - 199 mg/dL [facility] Blood 06/10/2022 1:13 PM CDT 06/10/2022 1:13 PM CDT Catherine Adams MD LAB POCT ORDERABLES - DEVIC E Final Result Performing Organization Address [facility] Co de Phone Number [facility] [place] [address] * Lactate, whole blood (06/10/2022 1:12 PM CDT) Pathologist [facility] Lactate, bld 1.1 0.7 - 2.0 mmol/L [facility] Blood 06/10/2022 1:12 PM CDT 06/10/2022 1:25 PM CDT us Marcelina Lo SUCTION ROLLER LAB BLOOD ORDERABLES Final Re sult Performing Organization Address [facility] de Phone Number [facility] [place] [address] * (ABNORMAL) Blood gas, arterial (06/10/2022 1:12 PM CDT) Pathologist [facility] pH, Art 7.40 7.35 - 7.45 [facility] PCO2, Arterial 36 35 - 45 mmHg [facility] PO2, Arterial 67(L) 83 - 108 mmHg [facility] HCO3 Art (Calculated) 23 20 - 30 mmol/L [facility] BE, art -2 mmol/L [facility] Comment: Interpretive Data No Reference Range Established Current Interpretive Data was last revised on 2017 O2 Sat Art (Measured) 92 90 - 95 % [facility] Blood 06/10/2022 1:12 PM CDT 06/10/2022 1:25 PM CDT us Marcelina Lo SUCTION ROLLER LAB BLOOD ORDERABLES Final Re sult ALESSANDRA CARRION [facility] [place] [address] * REMOVE VAD - DIFFERENT SESSION (06/10/2022 [...] pressure. ??Pressors were weaned off in the biology laboratory assistant but hypoxemia has been slow to resolve despite his peritoneal dialysis accelerated to hemodialysis. ??Impella is currently weaned to P2 and ready for removal. ?? Pre close system had been used with two 6 Cuban pro style placed in orthogonal fashion prior [...] x2. 2. History of non ST elevation CO with mild LV dysfunction status post recent [...] time, low range (06/10/2022 9:56 AM CDT) [facility] ACT 183(H) 123 - 168 sec [facility] Blood 06/10/2022 9:56 AM CDT 06/10/2022 9:56 AM CDT Catherine Adams MD LAB POCT ORDERABLES - DEVIC E Final Result Performing Organization Address City/[facility] Co de Phone Number [facility] [place] [address] * (ABNORMAL) POCT Activated clotting time, low range (06/10/2022 8:08 AM CDT) [facility] ACT 214(H) 123 - 168 sec [facility] Blood 06/10/2022 8:08 AM CDT 06/10/2022 8:08 AM CDT Catherine Adams MD LAB POCT ORDERABLES - DEVIC E Final Result Performing Organization Address City/[facility]/ZIP Co de Phone Number [facility] [place] [address] * POCT glucose (06/10/2022 7:54 AM CDT) Glucose, POC 138 70 - 199 mg/dL [facility] Blood 06/10/2022 7:54 AM CDT 06/10/2022 7:54 AM CDT us Cathernie Adams MD LAB POCT ORDERABLES - DEVIC E Final Result [facility] [place] [address] * (ABNORMAL) eGFR (06/10/2022 7:52 AM CDT) [facility] eGFR 31(L) 90 - 130 mL/min/1. 73 m2 [facility] Comment: Interpretive Data Reference Interval [...] Adams MD LAB BLOOD ORDERABLES Final Result [facility] [place] [address] * (ABNORMAL) Differential, auto (06/10/2022 7:52 AM CDT) Neutrophil abs 6.7(H) 1.7 - 6.5 K/cumm [facility] Imm gran abs 1.0(H) 0.0 - 0.1 K/cumm [facility] Lymphocyte abs 1.4 0.8 - 3.3 K/cumm [facility] Monocyte abs 0.9(H) 0.2 - 0.8 K/cumm [facility] Eosinophil abs 0.3 0.0 - 0.5 K/cumm [facility] Basophil abs 0.0 0.0 - 0.1 K/cumm [facility] Neutrophil pct 65.5 % [facility] Comment: Confirmed by smear review Interpretive Data Percent cell count reference ranges are not reported, since discordance with absolute values may lead to misinterpretation of CBC data. Current Interpretive Data was last revised on 2017. Imm gran pct 9.4 % [facility] Comment: Interpretive Data Percent cell count reference ranges are not reported, since discordance with absolute values may lead to misinterpretation of CBC data. Current Interpretive Data was last revised on 2017. Lymphocyte pct 13.4 % [facility] Comment: Interpretive Data Percent cell count reference ranges are not reported, since discordance with absolute values may lead to misinterpretation of CBC data. Current Interpretive Data was last revised on 2017. Monocyte pct 8.8 % [facility] Comment: Interpretive Data Percent cell count reference ranges are not reported, since discordance with absolute values may lead to misinterpretation of CBC data. Current Interpretive Data was last revised on 2017. Eosinophil pct 2.6 % [facility] Comment: Interpretive Data Percent cell count reference ranges are not reported, since discordance with absolute values may lead to misinterpretation of CBC data. Current Interpretive Data was last revised on 2017. Basophil pct 0.3 % [facility] Comment: Interpretive Data Percent cell count reference ranges are not reported, since discordance with absolute values may lead to misinterpretation of CBC data. Current Interpretive Data was last revised on 2017. Blood 06/10/2022 7:52 AM CDT 06/10/2022 8:07 AM CDT us Catherine Adams MD LAB BLOOD ORDERABLES Final Result Performing Organization Address City/[facility] Co de Phone Number [facility] [place] [address] * Lactate, whole blood (06/10/2022 7:52 AM CDT) Lactate, bld 1.2 0.7 - 2.0 mmol/L [facility] Blood 06/10/2022 7:52 AM CDT 06/10/2022 8:02 AM CDT us Marcelina Lo NP LAB BLOOD ORDERABLES Final Re sult Performing Organization Address [facility] Co de Phone Number [facility] [place] [address] * (ABNORMAL) Blood gas, arterial (06/10/2022 7:52 AM CDT) pH, Art 7.46(H) 7.35 - 7.45 [facility] PCO2, Arterial 34(L) 35 - 45 mmHg [facility] PO2, Arterial 99 83 - 108 mmHg [facility] HCO3 Art (Calculated) 25 20 - 30 mmol/L [facility] BE, art 1 mmol/L [facility] Comment: Interpretive Data No Reference Range Established Current Interpretive Data was last revised on 2017 O2 Sat Art (Measured) 98(H) 90 - 95 % [facility] Blood 06/10/2022 7:52 AM CDT 06/10/2022 8:02 AM CDT Marcelina Lo SUCTION ROLLER LAB BLOOD ORDERABLES Final Re sult Performing Organization Address City/[facility]/ZIP Co de Phone Number [facility] [place] [address] * Magnesium (06/10/2022 7:52 AM CDT) Pathologist [facility] Magnesium 2.4 1.4 - 2.5 mg/dL [facility] Blood 06/10/2022 7:52 AM CDT 06/10/2022 8:07 AM CDT Marcelina Lo SUCTION ROLLER LAB BLOOD ORDERABLES Final Re sult Performing Organization Address [facility] de Phone Number [facility] [place] [address] * (ABNORMAL) Comprehensive metabolic panel (06/10/2022 7:52 AM CDT) Pathologist [facility] Sodium 135 135 - 145 mmol/L [facility] Potassium, pl 4.3 3.3 - 4.9 mmol/L [facility] Chloride 100 97 - 110 mmol/L [facility] CO2 26 22 - 32 mmol/L [facility] Anion gap 9 2 - 15 mmol/L [facility] BUN 20 8 - 25 mg/dL [facility] Creatinine 2.44(H) 0.80 - 1.30 mg/dL [facility] Glucose 138 70 - 199 mg/dL [facility] Comment: Interpretive Data Fasting glucose [...] 2017. Calcium 8.4(L) 8.5 - 10.3 mg/dL [facility] Bilirubin, total 0.8 0.1 - 1.2 mg/dL [facility] Protein, pl 6.2(L) 6.5 - 8.5 g/dL [facility] Albumin 3.0(L) 3.5 - 5.0 g/dL [facility] Alk phos 169(H) 40 - 130 Units/L [facility] ALT 45 7 - 55 Units/L [facility] AST 117(H) 10 - 50 Units/L [facility] Blood 06/10/2022 7:52 AM CDT 06/10/2022 8:07 AM CDT us Marcelina Lo SUCTION ROLLER LAB BLOOD ORDERABLES Final Re sult [facility] [place] [address] * (ABNORMAL) CBC with auto differential (06/10/2022 7:52 AM CDT) WBC 10.2(H) 3.8 - 9.9 K/cumm [facility] Hgb 8.3(L) 13.0 - 17.5 g/dL [facility] Hct 25.1(L) 38.9 - 50.3 % [facility] Plt 201 150 - 400 K/cumm [facility] MPV 10.9 9.1 - 12.3 fL [facility] RBC 2.70(L) 4.30 - 5.80 M/cumm [facility] MCV 93.0 81.3 - 96.4 fL [facility] MCH 30.7 27.1 - 33.3 pg [facility] MCHC 33.1 32.3 - 35.7 g/dL [facility] RDW CV 13.3 11.1 - 14.9 % [facility] RDW SD 45.1 35.7 - 48.1 fL [facility] NRBC abs 0.02(H) 0.00 - 0.01 K/cumm [facility] Blood 06/10/2022 7:52 AM CDT 06/10/2022 8:07 AM CDT Marcelina Lo SUCTION ROLLER LAB BLOOD ORDERABLES Final Re sult Performing Organization Address [facility] de Phone Number [facility] [address] * Oxyhemoglobin, central venous (06/10/2022 5:36 AM CDT) Oxyhemoglobin, CV 70.2 % [facility] Comment: Interpretive Data No reference range established. Current interpretive data was last revised 2019. Blood 06/10/2022 5:36 AM CDT 06/10/2022 5:58 AM CDT Lavern Morrison MD LAB BLOOD ORDERABLES F inal Result Performing Organization Address [facility] de Phone Number [facility] [address] * Lactate, whole blood (06/10/2022 5:36 AM CDT) Lactate, bld 1.4 0.7 - 2.0 mmol/L [facility] Blood 06/10/2022 5:36 AM CDT 06/10/2022 5:58 AM CDT Marcelina Lo SUCTION ROLLER LAB BLOOD ORDERABLES Final Re sult Performing Organization Address [facility] de Phone Number [facility] [address] * XR Chest 1 View (06/10/2022 5:32 AM CDT) Anatomical Region Laterality Modality Body, Chest N/A Computed Radiogr aphy 06/10/2022 11:3 8 AM CDT Impressions 06/10/2022 11:42 AM CDT Comparison is made with prior radiograph dated 06/09/2022 7:57 AM. ??Left internal jugular central venous catheter terminates in the proximal superior vena cava. Feeding tube courses below diaphragm with tip not seen. Inferior approach [facility] catheter has tip projecting over the main [...] diaphragm with tip not seen. Inferior approach [facility] catheter has tip projecting over the main [...] Blood gas, arterial (06/10/2022 3:45 AM CDT) [facility] pH, Art 7.45 7.35 - 7.45 [facility] PCO2, Arterial 36 35 - 45 mmHg [facility] PO2, Arterial 92 83 - 108 mmHg [facility] HCO3 Art (Calculated) 26 20 - 30 mmol/L [facility] BE, art 1 mmol/L [facility] Comment: Interpretive Data No Reference Range Established Current Interpretive Data was last revised on 2017 O2 Sat Art (Measured) 97(H) 90 - 95 % [facility] Blood 06/10/2022 3:45 AM CDT 06/10/2022 3:52 AM CDT us Marcelina Lo NP LAB BLOOD ORDERABLES Final Re sult Performing Organization Address [facility]/ZIP Co de Phone Number [facility] [place] [address] * POCT glucose (06/10/2022 3:42 AM CDT) Glucose, POC 150 70 - 199 mg/dL [facility] Blood 06/10/2022 3:42 AM CDT 06/10/2022 3:42 AM CDT us Catherine Adams MD LAB POCT ORDERABLES - DEVIC E Final Result Performing Organization Address City/[facility]/ZIP Co de Phone Number [facility] [place] [address] * Lactate, whole blood (06/10/2022 12:26 AM CDT) Lactate, bld 1.4 0.7 - 2.0 mmol/L [facility] Blood 06/10/2022 12:2 6 AM CDT 06/10/2022 12:33 AM CDT Catherine Adams MD LAB BLOOD ORDERABLES Final Result Performing Organization Address City/[facility] Co de Phone Number [facility] [place] [address] * (ABNORMAL) Blood gas, arterial (06/10/2022 12:26 [...] Art (Measured) 96(H) 90 - 95 % [facility] Blood 06/10/2022 12:2 6 AM CDT 06/10/2022 12:33 AM CDT us Marcelina Lo NP LAB BLOOD ORDERABLES Final Re sult [facility] [place] [address] * POCT glucose (06/10/2022 12:21 AM CDT) Glucose, POC 157 70 - 199 mg/dL [facility] Blood 06/10/2022 12:2 1 AM CDT 06/10/2022 12:21 AM CDT us Catherine Adams MD LAB POCT ORDERABLES - DEVIC E Final Result [facility] [place] [address] * (ABNORMAL) Blood gas, arterial (06/09/2022 10:28 PM CDT) pH, Art 7.43 7.35 - 7.45 [facility] PCO2, Arterial 38 35 - 45 mmHg [facility] PO2, Arterial 93 83 - 108 mmHg [facility] HCO3 Art (Calculated) 26 20 - 30 mmol/L [facility] BE, art 1 mmol/L [facility] Comment: Interpretive Data No Reference Range Established Current Interpretive Data was last revised on 2017 O2 Sat Art (Measured) 97(H) 90 - 95 % [facility] Blood 06/09/2022 10:2 8 PM CDT 06/09/2022 10:38 PM CDT Catherine Adams MD LAB BLOOD ORDERABLES Final Result Performing Organization Address [facility] de Phone Number [facility] [place] [address] * POCT glucose (06/09/2022 8:40 PM CDT) Glucose, POC 182 70 - 199 mg/dL [facility] Blood 06/09/2022 8:40 PM CDT 06/09/2022 8:40 PM CDT Catherine Adams MD LAB POCT ORDERABLES - DEVIC E Final Result Performing Organization Address [facility] de Phone Number [facility] [place] [address] * (ABNORMAL) eGFR (06/09/2022 8:33 PM CDT) eGFR 26(L) 90 - 130 mL/min/1. 73 m2 [facility] Comment: Interpretive Data Reference Interval [...] [facility] Co de Phone Number [facility] [place] [address] * (ABNORMAL) Differential, auto (06/09/2022 8:33 PM CDT) Neutrophil abs 5.8 1.7 - 6.5 K/cumm [facility] Imm gran abs 0.7(H) 0.0 - 0.1 K/cumm [facility] Lymphocyte abs 1.2 0.8 - 3.3 K/cumm [facility] Monocyte abs 1.0(H) 0.2 - 0.8 K/cumm [facility] Eosinophil abs 0.3 0.0 - 0.5 K/cumm [facility] Basophil abs 0.0 0.0 - 0.1 K/cumm [facility] Neutrophil pct 64.3 % [facility] Comment: Interpretive Data Percent cell count reference ranges are not reported, since discordance with absolute values may lead to misinterpretation of CBC data. Current Interpretive Data was last revised on 2017. Imm gran pct 7.7 % [facility] Comment: Interpretive Data Percent cell count reference ranges are not reported, since discordance with absolute values may lead to misinterpretation of CBC data. Current Interpretive Data was last revised on 2017. Lymphocyte pct 13.4 % [facility] Comment: Interpretive Data Percent cell count reference ranges are not reported, since discordance with absolute values may lead to misinterpretation of CBC data. Current Interpretive Data was last revised on 2017. Monocyte pct 11.5 % [facility] Comment: Interpretive Data Percent cell count reference ranges are not reported, since discordance with absolute values may lead to misinterpretation of CBC data. Current Interpretive Data was last revised on 2017. Eosinophil pct 2.8 % [facility] Comment: Interpretive Data Percent cell count reference ranges are not reported, since discordance with absolute values may lead to misinterpretation of CBC data. Current Interpretive Data was last revised on 2017. Basophil pct 0.3 % [facility] Comment: Interpretive Data Percent cell count reference ranges are not reported, since discordance with absolute values may lead to misinterpretation of CBC data. Current Interpretive Data was last revised on 2017. Blood 06/09/2022 8:33 PM CDT 06/09/2022 9:07 PM CDT Catherine Adams MD LAB BLOOD ORDERABLES Final Result [facility] [place] [address] * (ABNORMAL) Blood gas, arterial (06/09/2022 8:33 PM CDT) pH, Art 7.41 7.35 - 7.45 [facility] PCO2, Arterial 39 35 - 45 mmHg [facility] PO2, Arterial 92 83 - 108 mmHg [facility] HCO3 Art (Calculated) 25 20 - 30 mmol/L [facility] BE, art 0 mmol/L [facility] Comment: Interpretive Data No Reference Range Established Current Interpretive Data was last revised on 2017 O2 Sat Art (Measured) 96(H) 90 - 95 % [facility] Blood 06/09/2022 8:33 PM CDT 06/09/2022 8:58 PM CDT Marcelina Lo SUCTION ROLLER LAB BLOOD ORDERABLES Final Re sult Performing Organization Address [facility] Co de Phone Number [facility] [place] [address] * (ABNORMAL) aPTT (06/09/2022 8:33 PM CDT) aPTT 92(H) 27 - 37 sec [facility] Comment: Interpretive Data Therapeutic heparin range: 60.0 - 94.0 seconds. Based on correlation with therapeutic heparin activity range of 0.3-0.7 Units/mL. Current interpretive data was last revised on 2020. Blood 06/09/2022 8:33 PM CDT 06/09/2022 9:01 PM CDT Narrative [facility] - 06/09/2022 9:28 PM CDT [...] Ann Marie l Result Performing Organization Address [facility] Co de Phone Number [facility] [place] [address] * Phosphorus (06/09/2022 8:33 PM CDT) Phosphorus, pl 3.2 2.3 - 4.5 mg/dL [facility] Blood 06/09/2022 8:33 PM CDT 06/09/2022 9:07 PM CDT Marcelina Lo SUCTION ROLLER LAB BLOOD ORDERABLES Final Re sult Performing Organization Address [facility] Co de Phone Number [facility] [place] [address] * Beta-hydroxybutyrate (06/09/2022 8:33 PM CDT) Beta-Hydroxybut yrate 0.3 0.0 - 0.5 mmol/L [facility] Blood 06/09/2022 8:33 PM CDT 06/09/2022 9:07 PM CDT us Marcelina Lo SUCTION ROLLER LAB BLOOD ORDERABLES Edited [place] [address] * Haptoglobin (06/09/2022 8:33 PM CDT) Haptoglobin 153.0 30.0 - 200.0 mg/dL [facility] Blood 06/09/2022 8:33 PM CDT 06/09/2022 9:07 PM CDT Catherine Adams MD LAB BLOOD ORDERABLES Final Result [facility] [place] [address] * Lipase (06/09/2022 8:33 PM CDT) Lipase 21 10 - 99 Units/L [facility] Blood 06/09/2022 8:33 PM CDT 06/09/2022 9:07 PM CDT us Marcelina Lo SUCTION ROLLER LAB BLOOD ORDERABLES Final Re sult [facility] [place] [address] * (ABNORMAL) Lactate dehydrogenase (LD) (06/09/2022 8:33 PM CDT) Pathologist [facility] Lactate dehydrogenase (LDH) 528(H) 100 - 250 Units/L [facility] Blood 06/09/2022 8:33 PM CDT 06/09/2022 9:07 PM CDT Catherine Adams MD LAB BLOOD ORDERABLES Final Result [facility] [place] [address] * Magnesium (06/09/2022 8:33 PM CDT) [facility] Magnesium 2.4 1.4 - 2.5 mg/dL [facility] Blood 06/09/2022 8:33 PM CDT 06/09/2022 9:07 PM CDT Marcelina Lo NP LAB BLOOD ORDERABLES Final Re sult Performing Organization Address City/[facility]/ZIP Co de Phone Number [facility] [place] [address] * (ABNORMAL) Comprehensive metabolic panel (06/09/2022 8:33 PM CDT) [facility] Sodium 134(L) 135 - 145 mmol/L [facility] Potassium, pl 4.4 3.3 - 4.9 mmol/L [facility] Chloride 99 97 - 110 mmol/L [facility] CO2 25 22 - 32 mmol/L [facility] Anion gap 10 2 - 15 mmol/L [facility] BUN 24 8 - 25 mg/dL [facility] Creatinine 2.82(H) 0.80 - 1.30 mg/dL [facility] Glucose 173 70 - 199 mg/dL [facility] Comment: Interpretive Data Fasting glucose [...] 2017. Calcium 8.3(L) 8.5 - 10.3 mg/dL [facility] Bilirubin, total 0.8 0.1 - 1.2 mg/dL [facility] Protein, pl 6.1(L) 6.5 - 8.5 g/dL [facility] Albumin 2.8(L) 3.5 - 5.0 g/dL [facility] Alk phos 168(H) 40 - 130 Units/L [facility] ALT 45 7 - 55 Units/L [facility] AST 129(H) 10 - 50 Units/L [facility] Blood 06/09/2022 8:33 PM CDT 06/09/2022 9:07 PM CDT us Marcelina Lo SUCTION ROLLER LAB BLOOD ORDERABLES Final Re sult [facility] [place] [address] * (ABNORMAL) CBC with auto differential (06/09/2022 8:33 PM CDT) WBC 9.1 3.8 - 9.9 K/cumm [facility] Hgb 8.2(L) 13.0 - 17.5 g/dL [facility] Hct 24.8(L) 38.9 - 50.3 % [facility] Plt 208 150 - 400 K/cumm [facility] MPV 11.0 9.1 - 12.3 fL [facility] RBC 2.66(L) 4.30 - 5.80 M/cumm [facility] MCV 93.2 81.3 - 96.4 fL [facility] MCH 30.8 27.1 - 33.3 pg [facility] MCHC 33.1 32.3 - 35.7 g/dL [facility] RDW CV 13.2 11.1 - 14.9 % [facility] RDW SD 45.5 35.7 - 48.1 fL [facility] NRBC abs 0.00 0.00 - 0.01 K/cumm [facility] Blood 06/09/2022 8:33 PM CDT 06/09/2022 9:07 PM CDT Marcelina Lo SUCTION ROLLER LAB BLOOD ORDERABLES Final Re sult Performing Organization Address [facility] Co de Phone Number [facility] [place] [employer] [place] [address] * Oxyhemoglobin, pulmonary artery (06/09/2022 3:52 PM CDT) Oxyhemoglobin, PA 66.5 % [facility] Comment: Interpretive Data No reference range established. Current interpretive data was last revised 2019. Blood 06/09/2022 3:52 PM CDT 06/09/2022 4:01 PM CDT Marcelina Lo SUCTION ROLLER LAB BLOOD ORDERABLES Final Re sult Performing Organization Address [facility] Co de Phone Number [facility] [place] [employer] [address] * Lactate, whole blood (06/09/2022 3:52 PM CDT) Lactate, bld 1.4 0.7 - 2.0 mmol/L [facility] Blood 06/09/2022 3:52 PM CDT 06/09/2022 4:01 PM CDT Marcelina Lo SUCTION ROLLER LAB BLOOD ORDERABLES Final Re sult Performing Organization Address [facility] Co de Phone Number [facility] [place] [address] * (ABNORMAL) Hemoglobin total, pulmonary artery (06/09/2022 3:52 PM CDT) Hemoglobin total, PA 8.9(L) 13.0 - 17.5 g/dL [facility] Blood 06/09/2022 3:52 PM CDT 06/09/2022 4:01 PM CDT Marcelina Lo SUCTION ROLLER LAB BLOOD ORDERABLES Final Re sult Performing Organization Address [facility] de Phone Number [facility] [place] [address] * (ABNORMAL) Blood gas, arterial (06/09/2022 3:52 PM CDT) Pathologist [facility] pH, Art 7.38 7.35 - 7.45 [facility] PCO2, Arterial 45 35 - 45 mmHg [facility] PO2, Arterial 80(L) 83 - 108 mmHg [facility] HCO3 Art (Calculated) 27 20 - 30 mmol/L [facility] BE, art 1 mmol/L [facility] Comment: Interpretive Data No Reference Range Established Current Interpretive Data was last revised on 2017 O2 Sat Art (Measured) 94 90 - 95 % [facility] Blood 06/09/2022 3:52 PM CDT 06/09/2022 4:01 PM CDT Result [facility] Catherine Adams MD LAB BLOOD ORDERABLES Final Result Performing Organization Address [facility] Co de Phone Number [facility] [place] [address] * POCT glucose (06/09/2022 3:50 PM CDT) Glucose, POC 136 70 - 199 mg/dL [facility] Blood 06/09/2022 3:50 PM CDT 06/09/2022 3:50 PM CDT Result [facility] Catherine Adams MD LAB POCT ORDERABLES - DEVIC E Final Result Performing Organization Address [facility] Co de Phone Number [facility] [place] [employer] [address] * Lactate, whole blood (06/09/2022 11:59 AM CDT) Lactate, bld 1.3 0.7 - 2.0 mmol/L [facility] Blood 06/09/2022 11:5 9 AM CDT 06/09/2022 12:10 PM CDT Result [facility] Marcelina Lo SUCTION ROLLER LAB BLOOD ORDERABLES Final Re sult Performing Organization Address [facility] Co de Phone Number [facility] [address] * (ABNORMAL) Hemoglobin total, pulmonary artery (06/09/2022 11:59 AM CDT) Hemoglobin total, PA 10.2(L) 13.0 - 17.5 g/dL [facility] Blood 06/09/2022 11:5 9 AM CDT 06/09/2022 12:10 PM CDT Result [facility] Marcelina Lo SUCTION ROLLER LAB BLOOD ORDERABLES Final Re sult Performing Organization Address [facility] Co de Phone Number [facility] [place] [address] * Oxyhemoglobin, pulmonary artery (06/09/2022 11:59 AM CDT) Oxyhemoglobin, PA 65.2 % [facility] Comment: Interpretive Data No reference range established. Current interpretive data was last revised 2019. Blood 06/09/2022 11:5 9 AM CDT 06/09/2022 12:10 PM CDT Marcelina Lo NP LAB BLOOD ORDERABLES Final Re sult Performing Organization Address [facility] Co de Phone Number [facility] [place] [employer] [place] [address] * (ABNORMAL) aPTT (06/09/2022 11:59 AM CDT) aPTT 79(H) 27 - 37 sec [facility] Comment: Interpretive Data Therapeutic heparin range: 60.0 - 94.0 seconds. Based on correlation with therapeutic heparin activity range of 0.3-0.7 Units/mL. Current interpretive data was last revised on 2020. Blood 06/09/2022 11:5 9 AM CDT 06/09/2022 12:14 PM CDT Narrative [facility] - 06/09/2022 12:40 PM CDT [...] Ann Marie l Result Performing Organization Address [facility] Co de Phone Number [facility] [place] [employer] [place] [address] * POCT glucose (06/09/2022 11:58 AM CDT) Glucose, POC 171 70 - 199 mg/dL [facility] Blood 06/09/2022 11:5 8 AM CDT 06/09/2022 11:58 AM CDT Catherine Adams MD LAB POCT ORDERABLES - DEVIC E Final Result Performing Organization Address [facility] Co de Phone Number [facility] [place] [address] * XR Chest 1 View (06/09/2022 8:57 [...] diaphragm with tip not seen. Inferior approach Forest-Liv catheter has been retracted with the tip projecting over the main pulmonary artery. An Impella device is in place, unchanged. There is mild cardiomegaly, unchanged. There is moderate asymmetric left lung and right upper lobe pulmonary edema. Likely small left pleural effusion although the left costophrenic angle is partially off the [id number]. No right pleural effusion or pneumothorax. Second exam ??06/09/2022 7:57 AM The Forest-Liv catheter has been slightly advanced with tip [...] diaphragm with tip not seen. Inferior approach Forest-Liv catheter has been retracted with the tip projecting over the main pulmonary artery. An Impella device is in place, unchanged. There is mild cardiomegaly, unchanged. There is moderate asymmetric left lung and right upper lobe pulmonary edema. Likely small left pleural effusion although the left costophrenic angle is partially off the [id number]. No right pleural effusion or pneumothorax. Second exam 06/09/2022 7:57 AM The Forest-Liv catheter has been slightly advanced with tip [...] 90 - 130 mL/min/1. 73 m2 [facility] Comment: Interpretive Data Reference Interval Normal ?>/= [...] Adams MD LAB BLOOD ORDERABLES Final Result [facility] [place] [address] * (ABNORMAL) Differential, auto (06/09/2022 7:57 AM CDT) Neutrophil abs 5.8 1.7 - 6.5 K/cumm [facility] Imm gran abs 0.5(H) 0.0 - 0.1 K/cumm [facility] Lymphocyte abs 1.2 0.8 - 3.3 K/cumm [facility] Monocyte abs 1.0(H) 0.2 - 0.8 K/cumm [facility] Eosinophil abs 0.2 0.0 - 0.5 K/cumm [facility] Basophil abs 0.0 0.0 - 0.1 K/cumm [facility] Neutrophil pct 67.0 % [facility] Comment: Interpretive Data Percent cell count reference ranges are not reported, since discordance with absolute values may lead to misinterpretation of CBC data. Current Interpretive Data was last revised on 2017. Imm gran pct 5.6 % [facility] Comment: Interpretive Data Percent cell count reference ranges are not reported, since discordance with absolute values may lead to misinterpretation of CBC data. Current Interpretive Data was last revised on 2017. Lymphocyte pct 13.6 % [facility] Comment: Interpretive Data Percent cell count reference ranges are not reported, since discordance with absolute values may lead to misinterpretation of CBC data. Current Interpretive Data was last revised on 2017. Monocyte pct 11.4 % [facility] Comment: Interpretive Data Percent cell count reference ranges are not reported, since discordance with absolute values may lead to misinterpretation of CBC data. Current Interpretive Data was last revised on 2017. Eosinophil pct 2.2 % [facility] Comment: Interpretive Data Percent cell count reference ranges are not reported, since discordance with absolute values may lead to misinterpretation of CBC data. Current Interpretive Data was last revised on 2017. Basophil pct 0.2 % [facility] Comment: Interpretive Data Percent cell count reference ranges are not reported, since discordance with absolute values may lead to misinterpretation of CBC data. Current Interpretive Data was last revised on 2017. Blood 06/09/2022 7:57 AM CDT 06/09/2022 8:19 AM CDT Catherine Adams MD LAB BLOOD ORDERABLES Final Result Performing Organization Address City/[facility]/ZIP Co de Phone Number [facility] [place] [address] * Magnesium (06/09/2022 7:57 AM CDT) [facility] Magnesium 2.3 1.4 - 2.5 mg/dL [facility] Blood 06/09/2022 7:57 AM CDT 06/09/2022 8:19 AM CDT Marcelina Lo NP LAB BLOOD ORDERABLES Final Re sult Performing Organization Address [facility]/ZIP Co de Phone Number [facility] [place] [address] * (ABNORMAL) Comprehensive metabolic panel (06/09/2022 7:57 AM CDT) Sodium 134(L) 135 - 145 mmol/L [facility] Potassium, pl 4.5 3.3 - 4.9 mmol/L [facility] Chloride 99 97 - 110 mmol/L [facility] CO2 28 22 - 32 mmol/L [facility] Anion gap 7 2 - 15 mmol/L [facility] BUN 32(H) 8 - 25 mg/dL [facility] Creatinine 3.50(H) 0.80 - 1.30 mg/dL [facility] Glucose 171 70 - 199 mg/dL [facility] Comment: Interpretive Data Fasting glucose [...] 2017. Calcium 8.4(L) 8.5 - 10.3 mg/dL [facility] Bilirubin, total 0.6 0.1 - 1.2 mg/dL [facility] Protein, pl 5.8(L) 6.5 - 8.5 g/dL [facility] Albumin 2.8(L) 3.5 - 5.0 g/dL [facility] Alk phos 165(H) 40 - 130 Units/L [facility] ALT 43 7 - 55 Units/L [facility] AST 133(H) 10 - 50 Units/L [facility] Blood 06/09/2022 7:57 AM CDT 06/09/2022 8:19 AM CDT Marcelina Lo SUCTION ROLLER LAB BLOOD ORDERABLES Final Re sult [facility] [place] [address] * Potassium, whole blood (06/09/2022 7:57 AM CDT) Potassium, bld 4.2 3.3 - 4.9 mmol/L [facility] Blood 06/09/2022 7:57 AM CDT 06/09/2022 8:14 AM CDT Marcelina Lo SUCTION ROLLER LAB BLOOD ORDERABLES Final Re sult [facility] [place] [address] * (ABNORMAL) Blood gas, arterial (06/09/2022 7:57 AM CDT) [facility] pH, Art 7.43 7.35 - 7.45 [facility] PCO2, Arterial 39 35 - 45 mmHg [facility] PO2, Arterial 107 83 - 108 mmHg [facility] HCO3 Art (Calculated) 27 20 - 30 mmol/L [facility] BE, art 2 mmol/L [facility] Comment: Interpretive Data No Reference Range Established Current Interpretive Data was last revised on 2017 O2 Sat Art (Measured) 97(H) 90 - 95 % [facility] Blood 06/09/2022 7:57 AM CDT 06/09/2022 8:14 AM CDT Marcelina Lo SUCTION ROLLER LAB BLOOD ORDERABLES Final Re sult [facility] [place] [address] * Lactate, whole blood (06/09/2022 7:57 AM CDT) [facility] Lactate, bld 1.1 0.7 - 2.0 mmol/L [facility] Blood 06/09/2022 7:57 AM CDT 06/09/2022 8:14 AM CDT Marcelina Lo SUCTION ROLLER LAB BLOOD ORDERABLES Final Re sult [facility] [address] * Type and screen (06/09/2022 7:57 AM CDT) [facility] ABO Rh A Positive [facility] Maribel, indirect Negative [facility] Blood 06/09/2022 7:57 AM CDT 06/09/2022 8:20 AM CDT Narrative [facility] - 06/09/2022 9:11 AM CDT Has the patient had Daratumumab or Isatuximab in the past 6 months?->Unknown Catherine Adams MD LAB BLOOD BANK TEST ORDERAB LES Final Result Performing Organization Address [facility] [place] [address] * (ABNORMAL) Hemoglobin total, pulmonary artery (06/09/2022 7:57 AM CDT) Hemoglobin total, PA 8.7(L) 13.0 - 17.5 g/dL [facility] Blood 06/09/2022 7:57 AM CDT 06/09/2022 8:43 AM CDT Marcelina Lo SUCTION ROLLER LAB BLOOD ORDERABLES Final Re sult Performing Organization Address [facility] [place] [address] * Oxyhemoglobin, pulmonary artery (06/09/2022 7:57 AM CDT) Oxyhemoglobin, PA 55.8 % [facility] Comment: Interpretive Data No reference range established. Current interpretive data was last revised 2019. Blood 06/09/2022 7:57 AM CDT 06/09/2022 8:43 AM CDT Marcelina Lo SUCTION ROLLER LAB BLOOD ORDERABLES Final Re sult Performing Organization Address [facility] [place] [address] * (ABNORMAL) CBC with auto differential (06/09/2022 7:57 AM CDT) WBC 8.6 3.8 - 9.9 K/cumm [facility] Hgb 8.1(L) 13.0 - 17.5 g/dL [facility] Hct 23.5(L) 38.9 - 50.3 % [facility] Plt 179 150 - 400 K/cumm [facility] MPV 11.1 9.1 - 12.3 fL [facility] RBC 2.61(L) 4.30 - 5.80 M/cumm [facility] MCV 90.0 81.3 - 96.4 fL [facility] MCH 31.0 27.1 - 33.3 pg [facility] MCHC 34.5 32.3 - 35.7 g/dL [facility] RDW CV 13.4 11.1 - 14.9 % [facility] RDW SD 44.2 35.7 - 48.1 fL [facility] NRBC abs 0.00 0.00 - 0.01 K/cumm [facility] Blood 06/09/2022 7:57 AM CDT 06/09/2022 8:19 AM CDT us Marcelina Lo NP LAB BLOOD ORDERABLES Final Re sult [facility] [place] [address] * POCT glucose (06/09/2022 7:55 AM CDT) [facility] Glucose, POC 155 70 - 199 mg/dL [facility] Blood 06/09/2022 7:55 AM CDT 06/09/2022 7:55 AM CDT us Catherine Adams MD LAB POCT ORDERABLES - DEVIC E Final Result Performing Organization Address City/[facility]/ZIP Co de Phone Number [facility] [place] [address] * (ABNORMAL) aPTT (06/09/2022 5:24 AM CDT) aPTT 66(H) 27 - 37 sec [facility] Comment: Interpretive Data Therapeutic heparin range: 60.0 - 94.0 seconds. Based on correlation with therapeutic heparin activity range of 0.3-0.7 Units/mL. Current interpretive data was last revised on 2020. Blood 06/09/2022 5:24 AM CDT 06/09/2022 5:53 AM CDT Narrative [facility] - 06/09/2022 6:02 AM CDT [...] Ann Marie l Result Performing Organization Address [facility] de Phone Number [facility] [place] [address] * (ABNORMAL) Blood gas, arterial (06/09/2022 5:24 AM CDT) Pathologist [facility] pH, Art 7.44 7.35 - 7.45 [facility] PCO2, Arterial 38 35 - 45 mmHg [facility] PO2, Arterial 71(L) 83 - 108 mmHg [facility] HCO3 Art (Calculated) 26 20 - 30 mmol/L [facility] BE, art 2 mmol/L [facility] Comment: Interpretive Data No Reference Range Established Current Interpretive Data was last revised on 2017 O2 Sat Art (Measured) 94 90 - 95 % [facility] Blood 06/09/2022 5:24 AM CDT 06/09/2022 5:37 AM CDT us Marcelina Lo NP LAB BLOOD ORDERABLES Final Re sult Performing Organization Address [facility]/ZIP Co de Phone Number [facility] [place] [address] * XR Chest 1 View (06/09/2022 4:30 [...] diaphragm with tip not seen. Inferior approach Forest-Ilv catheter has been retracted with the tip projecting over the main pulmonary artery. An Impella device is in place, unchanged. There is mild cardiomegaly, unchanged. There is moderate asymmetric left lung and right upper lobe pulmonary edema. Likely small left pleural effusion although the left costophrenic angle is partially off the [id number]. No right pleural effusion or pneumothorax. Second exam ??06/09/2022 7:57 AM The Forest-Liv catheter has been slightly advanced with tip [...] diaphragm with tip not seen. Inferior approach Forest-Liv catheter has been retracted with the tip projecting over the main pulmonary artery. An Impella device is in place, unchanged. There is mild cardiomegaly, unchanged. There is moderate asymmetric left lung and right upper lobe pulmonary edema. Likely small left pleural effusion although the left costophrenic angle is partially off the [id number]. No right pleural effusion or pneumothorax. Second exam 06/09/2022 7:57 AM The Forest-Liv catheter has been slightly advanced with tip [...] WBC, ur 0-5 0 - 5 /HPF [facility] RBC, ur 6-10(A) 0 - 2 /HPF [facility] Hyaline casts, ur 1-5 0 - 10 /LPF [facility] Granular casts, ur 1-5(A) 0 - 0 /LPF [facility] Culture Reflex Comment Reflex conditions for urine culture (WBC >10) not met. [facility] Urine 06/09/2022 4:08 AM CDT 06/09/2022 4:16 AM CDT Catherine Adams MD LAB URINE ORDERABLES Final Result [facility] Department of Laboratories [place], [place] [id number] * (ABNORMAL) Urinalysis reflex to microscopic and culture Urine (06/09/2022 4:08 AM CDT) Color, ur Yellow Yellow [facility] Clarity, ur Clear Clear [facility] Specific gravity, ur 1.018 1.003 - 1.030 [facility] pH, urine 5.5 [facility] Protein, ur ql 1+(A) Negative [facility] Glucose, ur ql 4+(A) Negative [facility] Ketones, ur Negative Negative [facility] Bilirubin, ur Negative Negative [facility] Blood, ur 2+(A) Negative [facility] Urobilinogen, ur <2.0 <2.0 mg/dL [facility] Nitrite, ur Negative Negative [facility] Leukocyte esterase, ur Negative Negative [facility] UA reflex comment Reflex to microscopic UA will be performed. [facility] Urine 06/09/2022 4:08 AM CDT [...] for uric acid stone formation. Source: [employer]. Last revised 08-31-2017 Catherine Adams MD LAB MICROBIOLOGY - GENERAL ORDERABLES Final Result Performing Organization Address City/[facility]/ZIP Co de Phone Number [facility] [place] [place] [address] * POCT glucose (06/09/2022 4:06 AM CDT) Glucose, POC 147 70 - 199 mg/dL [facility] Blood 06/09/2022 4:06 AM CDT 06/09/2022 4:06 AM CDT Catherine Adams MD LAB POCT ORDERABLES - DEVIC E Final Result Performing Organization Address [facility] Co de Phone Number [facility] [place] [address] * (ABNORMAL) Hemoglobin and hematocrit (06/08/2022 11:27 PM CDT) Pathologist [facility] Hgb 7.5(L) 13.0 - 17.5 g/dL [facility] Hct 22.0(L) 38.9 - 50.3 % [facility] Blood 06/08/2022 11:2 7 PM CDT 06/08/2022 11:40 PM CDT Meme Castro MD LAB BLOOD ORDERABLES Final Result Performing Organization Address [facility] Co de Phone Number [facility] [place] [address] * (ABNORMAL) Hemoglobin total, pulmonary artery (06/08/2022 11:27 PM CDT) [facility] Hemoglobin total, PA 8.1(L) 13.0 - 17.5 g/dL [facility] Blood 06/08/2022 11:2 7 PM CDT 06/08/2022 11:36 PM CDT Marcelina Lo SUCTION ROLLER LAB BLOOD ORDERABLES Final Re sult Performing Organization Address [facility] de Phone Number [facility] [place] [address] * Oxyhemoglobin, pulmonary artery (06/08/2022 11:27 PM CDT) Pathologist [facility] Oxyhemoglobin, PA 57.4 % [facility] Comment: Interpretive Data No reference range established. Current interpretive data was last revised 2019. Blood 06/08/2022 11:2 7 PM CDT 06/08/2022 11:36 PM CDT Marcelina Lo SUCTION ROLLER LAB BLOOD ORDERABLES Final Re sult Performing Organization Address [facility] Co de Phone Number [facility] [place] [address] * (ABNORMAL) aPTT (06/08/2022 11:27 PM CDT) [facility] aPTT 44(H) 27 - 37 sec [facility] Comment: Interpretive Data Therapeutic heparin range: 60.0 - 94.0 seconds. Based on correlation with therapeutic heparin activity range of 0.3-0.7 Units/mL. Current interpretive data was last revised on 2020. Blood 06/08/2022 11:2 7 PM CDT 06/09/2022 12:13 AM CDT Narrative [facility] - 06/09/2022 12:22 AM CDT [...] LAB BLOOD ORDERABLES Ann Marie l Result [facility] [place] [place] [address] * POCT glucose (06/08/2022 11:25 PM CDT) [facility] Glucose, POC 156 70 - 199 mg/dL [facility] Blood 06/08/2022 11:2 5 PM CDT 06/08/2022 11:25 PM CDT Catherine Adams MD LAB POCT ORDERABLES - DEVIC E Final Result [facility] [place] [address] * Phosphorus (06/08/2022 8:08 PM CDT) [facility] Phosphorus, pl 3.7 2.3 - 4.5 mg/dL [facility] Blood 06/08/2022 8:08 PM CDT 06/08/2022 8:31 PM CDT Catherine Adams MD LAB BLOOD ORDERABLES Final Result Performing Organization Address City/[facility] Co de Phone Number [facility] [place] [address] * Magnesium (06/08/2022 8:08 PM CDT) [facility] Magnesium 2.4 1.4 - 2.5 mg/dL [facility] Blood 06/08/2022 8:08 PM CDT 06/08/2022 8:31 PM CDT Result [facility] Catherine Adams MD LAB BLOOD ORDERABLES Final Result Performing Organization Address [facility] de Phone Number [facility] [place] [address] * (ABNORMAL) eGFR (06/08/2022 8:08 PM CDT) [facility] eGFR 14(L) 90 - 130 mL/min/1. 73 m2 [facility] Comment: Interpretive Data Reference Interval [...] Ann Marie l Result Performing Organization Address [facility] Co de Phone Number [facility] [place] [employer] [address] * (ABNORMAL) Haptoglobin (06/08/2022 8:08 PM CDT) Haptoglobin 219.0(H) 30.0 - 200.0 mg/dL [facility] Blood 06/08/2022 8:08 PM CDT 06/08/2022 8:31 PM CDT Catherine Adams MD LAB BLOOD ORDERABLES Final Result Performing Organization Address [facility] Co de Phone Number [facility] Department [place] [address] * Lipase (06/08/2022 8:08 PM CDT) Lipase 11 10 - 99 Units/L [facility] Blood 06/08/2022 8:08 PM CDT 06/08/2022 8:31 PM CDT Catherine Adams MD LAB BLOOD ORDERABLES Final Result Performing Organization Address City/[facility] Co de Phone Number [facility] [place] [address] * (ABNORMAL) Differential, auto (06/08/2022 8:08 PM CDT) Neutrophil abs 7.0(H) 1.7 - 6.5 K/cumm [facility] Imm gran abs 0.4(H) 0.0 - 0.1 K/cumm [facility] Lymphocyte abs 0.9 0.8 - 3.3 K/cumm [facility] Monocyte abs 0.9(H) 0.2 - 0.8 K/cumm [facility] Eosinophil abs 0.1 0.0 - 0.5 K/cumm [facility] Basophil abs 0.0 0.0 - 0.1 K/cumm [facility] Neutrophil pct 75.3 % [facility] Comment: Interpretive Data Percent cell count reference ranges are not reported, since discordance with absolute values may lead to misinterpretation of CBC data. Current Interpretive Data was last revised on 2017. Imm gran pct 3.8 % [facility] Comment: Interpretive Data Percent cell count reference ranges are not reported, since discordance with absolute values may lead to misinterpretation of CBC data. Current Interpretive Data was last revised on 2017. Lymphocyte pct 10.0 % [facility] Comment: Interpretive Data Percent cell count reference ranges are not reported, since discordance with absolute values may lead to misinterpretation of CBC data. Current Interpretive Data was last revised on 2017. Monocyte pct 9.8 % [facility] Comment: Interpretive Data Percent cell count reference ranges are not reported, since discordance with absolute values may lead to misinterpretation of CBC data. Current Interpretive Data was last revised on 2017. Eosinophil pct 1.0 % [facility] Comment: Interpretive Data Percent cell count reference ranges are not reported, since discordance with absolute values may lead to misinterpretation of CBC data. Current Interpretive Data was last revised on 2017. Basophil pct 0.1 % [facility] Comment: Interpretive Data Percent cell count reference ranges are not reported, since discordance with absolute values may lead to misinterpretation of CBC data. Current Interpretive Data was last revised on 2017. Blood 06/08/2022 8:08 PM CDT 06/08/2022 8:30 PM CDT us Catherine Adams MD LAB BLOOD ORDERABLES Final Result [facility] [address] * (ABNORMAL) Blood gas, arterial (06/08/2022 8:08 PM CDT) pH, Art 7.44 7.35 - 7.45 [facility] PCO2, Arterial 36 35 - 45 mmHg [facility] PO2, Arterial 140(H) 83 - 108 mmHg [facility] HCO3 Art (Calculated) 25 20 - 30 mmol/L [facility] BE, art 0 mmol/L [facility] Comment: Interpretive Data No Reference Range Established Current Interpretive Data was last revised on 2017 O2 Sat Art (Measured) 99(H) 90 - 95 % [facility] Blood 06/08/2022 8:08 PM CDT 06/08/2022 8:15 PM CDT us Marcelina Lo SUCTION ROLLER LAB BLOOD ORDERABLES Final Re sult Performing Organization Address City/[facility]/ZIP Co de Phone Number [facility] [place] [address] * (ABNORMAL) Hemoglobin total, pulmonary artery (06/08/2022 8:08 PM CDT) Hemoglobin total, PA 8.7(L) 13.0 - 17.5 g/dL [facility] Blood 06/08/2022 8:08 PM CDT 06/08/2022 8:15 PM CDT Marcelina Lo SUCTION ROLLER LAB BLOOD ORDERABLES Final Re sult [facility] [address] * Oxyhemoglobin, pulmonary artery (06/08/2022 8:08 PM CDT) [facility] Oxyhemoglobin, PA 69.9 % [facility] Comment: Interpretive Data No reference range established. Current interpretive data was last revised 2019. Blood 06/08/2022 8:08 PM CDT 06/08/2022 8:15 PM CDT Marcelina Lo SUCTION ROLLER LAB BLOOD ORDERABLES Final Re sult [facility] [place] [address] * Respiratory pathogen panel Nasopharyngeal (06/08/2022 8:08 PM CDT) [facility] Influenza A RNA Not Detected Not Detected [facility] Influenza B RNA Not Detected Not Detected [facility] [facility] RNA Not Detected Not Detected [facility] COVID-19 RNA Not Detected Not Detected [facility] Coronavirus 229E RNA Not Detected Not Detected [facility] Coronavirus HKU1 RNA Not Detected Not Detected [facility] Coronavirus NL63 RNA Not Detected Not Detected [facility] Coronavirus OC43 RNA Not Detected Not Detected [facility] Adenovirus DNA Not Detected Not Detected [facility] Metapneumovirus RNA Not Detected Not Detected [facility] Rhinovirus/Enterov irus RNA Not Detected Not Detected [facility] Parainfluenza 1 RNA Not Detected Not Detected [facility] Parainfluenza 2 RNA Not Detected Not Detected [facility] Parainfluenza 3 RNA Not Detected Not Detected [facility] Parainfluenza 4 RNA Not Detected Not Detected [facility] B. pertussis DNA Not Detected Not Detected [facility] B. parapertussis DNA Not Detected Not Detected [facility] C. pneumoniae DNA Not Detected Not Detected [facility] M. pneumoniae DNA Not Detected Not Detected [facility] Nasopharyngeal 06/08/2022 8: 08 PM CDT 06/08/2022 9:19 PM CDT Narrative [facility] - 06/08/2022 10:13 PM CDT Previously covid negative Is the Patient experiencing symptoms consistent with COVID?->Unknown Reason for testing?->Patient history unknown Surveillance testing for transplant patient?->No ??Interpretive Data [employer] FilmArray Respiratory Panel (RP2.1) assay is a [...] assay has FDA clearance for testing of SUCTION ROLLER swabs. ??The performance of additional specimen types has been assessed by the performing laboratory. ??The performance characteristics of this assay have been determined by [facility] Molecular Infectious Disease Laboratory. Current interpretive data was last revised on 22. us Catherine Adams MD LAB MICROBIOLOGY - GENERAL ORDERABLES Final Result Performing Organization Address City/[facility] Co de Phone Number [facility] [place] [address] * Beta-hydroxybutyrate (06/08/2022 8:08 PM CDT) Pathologist [facility] Beta-Hydroxybut yrate 0.3 0.0 - 0.5 mmol/L [facility] Blood 06/08/2022 8:08 PM CDT 06/08/2022 8:15 PM CDT us Marcelina Lo NP LAB BLOOD ORDERABLES Final Re sult Performing Organization Address [facility] Co de Phone Number [facility] [place] [address] * (ABNORMAL) Lactate dehydrogenase (LD) (06/08/2022 8:08 PM CDT) [facility] Lactate dehydrogenase (LDH) 444(H) 100 - 250 Units/L [facility] Blood 06/08/2022 8:08 PM CDT 06/08/2022 8:31 PM CDT us Catherine Adams MD LAB BLOOD ORDERABLES Final Result Performing Organization Address [facility] Co de Phone Number [facility] [place] [address] * (ABNORMAL) Comprehensive metabolic panel (06/08/2022 8:08 PM CDT) Pathologist [facility] Sodium 136 135 - 145 mmol/L [facility] Potassium, pl 4.3 3.3 - 4.9 mmol/L [facility] Chloride 100 97 - 110 mmol/L [facility] CO2 27 22 - 32 mmol/L [facility] Anion gap 9 2 - 15 mmol/L [facility] BUN 42(H) 8 - 25 mg/dL [facility] Creatinine 4.73(H) 0.80 - 1.30 mg/dL [facility] Glucose 146 70 - 199 mg/dL [facility] Comment: Interpretive Data Fasting glucose [...] 2017. Calcium 8.4(L) 8.5 - 10.3 mg/dL [facility] Bilirubin, total 0.5 0.1 - 1.2 mg/dL [facility] Protein, pl 5.8(L) 6.5 - 8.5 g/dL [facility] Albumin 2.8(L) 3.5 - 5.0 g/dL [facility] Alk phos 153(H) 40 - 130 Units/L [facility] ALT 40 7 - 55 Units/L [facility] AST 137(H) 10 - 50 Units/L [facility] Blood 06/08/2022 8:08 PM CDT 06/08/2022 8:31 PM CDT Conrad Weston Chi, MD LAB BLOOD ORDERABLES Ann Marie kramer Result [facility] [place] [address] * (ABNORMAL) CBC with auto differential (06/08/2022 8:08 PM CDT) Pathologist [facility] WBC 9.3 3.8 - 9.9 K/cumm [facility] Hgb 6.9(L) 13.0 - 17.5 g/dL [facility] Hct 19.9(L) 38.9 - 50.3 % [facility] Plt 207 150 - 400 K/cumm [facility] MPV 11.2 9.1 - 12.3 fL [facility] RBC 2.20(L) 4.30 - 5.80 M/cumm [facility] MCV 90.5 81.3 - 96.4 fL [facility] MCH 31.4 27.1 - 33.3 pg [facility] MCHC 34.7 32.3 - 35.7 g/dL [facility] RDW CV 13.5 11.1 - 14.9 % [facility] RDW SD 44.4 35.7 - 48.1 fL [facility] NRBC abs 0.00 0.00 - 0.01 K/cumm [facility] Blood 06/08/2022 8:08 PM CDT 06/08/2022 8:30 PM CDT us Marcelina Lo NP LAB BLOOD ORDERABLES Final Re sult Performing Organization Address City/[facility]/ZIP Co de Phone Number [facility] [place] [address] * POCT glucose (06/08/2022 8:04 PM CDT) Glucose, POC 153 70 - 199 mg/dL [facility] Blood 06/08/2022 8:04 PM CDT 06/08/2022 8:04 PM CDT us Catherine Adams MD LAB POCT ORDERABLES - DEVIC E Final Result [facility] [place] [address] * POCT glucose (06/08/2022 8:03 PM CDT) Glucose, POC 162 70 - 199 mg/dL [facility] Blood 06/08/2022 8:03 PM CDT 06/08/2022 8:03 PM CDT Catherine Adams MD LAB POCT ORDERABLES - DEVIC E Final Result Performing Organization Address City/[facility] Co de Phone Number [facility] [place] [address] * POCT glucose (06/08/2022 4:20 PM CDT) Glucose, POC 135 70 - 199 mg/dL [facility] Blood 06/08/2022 4:20 PM CDT 06/08/2022 4:20 PM CDT Catherine Adams MD LAB POCT ORDERABLES - DEVIC E Final Result Performing Organization Address [facility] [place] [address] * Lactate, whole blood (06/08/2022 4:20 PM CDT) Lactate, bld 1.2 0.7 - 2.0 mmol/L [facility] Blood 06/08/2022 4:20 PM CDT 06/08/2022 4:44 PM CDT Marcelina Lo NP LAB BLOOD ORDERABLES Final Re sult Performing Organization Address [facility] Co de Phone Number [facility] [place] [address] * (ABNORMAL) aPTT (06/08/2022 4:20 PM CDT) aPTT 25(L) 27 - 37 sec [facility] Comment: Interpretive Data Therapeutic heparin range: 60.0 - 94.0 seconds. Based on correlation with therapeutic heparin activity range of 0.3-0.7 Units/mL. Current interpretive data was last revised on 2020. Blood 06/08/2022 4:20 PM CDT 06/08/2022 4:56 PM CDT Narrative [facility] - 06/08/2022 5:12 PM CDT Draw STAT [...] Ann Marie l Result Performing Organization Address City/[facility]/ZIP Co de Phone Number [facility] [place] [address] * (ABNORMAL) Hemoglobin total, pulmonary artery (06/08/2022 4:20 PM CDT) Hemoglobin total, PA 8.4(L) 13.0 - 17.5 g/dL [facility] Blood 06/08/2022 4:20 PM CDT 06/08/2022 4:44 PM CDT us Marcelina Lo NP LAB BLOOD ORDERABLES Final Re sult Performing Organization Address [facility] Co de Phone Number [facility] [place] [employer] [place] [address] * (ABNORMAL) Blood gas, arterial (06/08/2022 4:20 PM CDT) pH, Art 7.44 7.35 - 7.45 [facility] PCO2, Arterial 36 35 - 45 mmHg [facility] PO2, Arterial 156(H) 83 - 108 mmHg [facility] HCO3 Art (Calculated) 25 20 - 30 mmol/L [facility] BE, art 0 mmol/L [facility] Comment: Interpretive Data No Reference Range Established Current Interpretive Data was last revised on 2017 O2 Sat Art (Measured) 98(H) 90 - 95 % [facility] Blood 06/08/2022 4:20 PM CDT 06/08/2022 4:44 PM CDT Marcelina Lo SUCTION ROLLER LAB BLOOD ORDERABLES Final Re sult Performing Organization Address [facility] Co de Phone Number [facility] [place] [address] * Oxyhemoglobin, pulmonary artery (06/08/2022 4:20 PM CDT) Oxyhemoglobin, PA 63.1 % [facility] Comment: Interpretive Data No reference range established. Current interpretive data was last revised 2019. Blood 06/08/2022 4:20 PM CDT 06/08/2022 4:44 PM CDT Marcelina Lo SUCTION ROLLER LAB BLOOD ORDERABLES Final Re sult Performing Organization Address [facility] de Phone Number [facility] [place] [address] * TRANSTHORACIC ECHO (TTE) COMPLETE W DOPPLER/CF W CONTRAST (06/08/2022 2:50 PM CDT) Pathologist [facility] LV EF 56 % CARDIOREPORT Anatomical Region Laterality Modality Ultrasound 06/08/2022 12:3 0 PM CDT Narrative 06/08/2022 4:00 PM CDT Patient name: Adelia Garvin Date of test: 06/08/2022 Type of test: TTE w/Doppler Hospital #: [id number] Date of : 1970 (M) Print Production Manager: Elli Larsen RDCS Referring Physician: CATHERINE ADAMS MD Contrast Agent: Contrast Administered by: Supervised/Interpreted by: Baldomero Foster MD Diagnosis: Location: [facility] Reason for test: HF with impella MV [...] 2=Hypo 3=Akinetic 4=Dyskin./Aneurysm 0=Not visualized) Parasternal Long [place]:MAS=2 BAS=1 MIL=1 IVETH=1 Parasternal Short [place]:MAS=2 MIS=1 CO=1 MIL=1 MAL=2 MA=1 Apical 4 Chambers:=1 MIS=1 BIS=1 BAL=1 MAL=2 AL=2 AC=2 Apical 2 Chambers:AI=1 CO=1 BI=1 BA=1 MA=1 AA=1 AC=2 LV Global [...] in anterior wall and anterior septem sugegsting CAD/CO in the LAD territory. LVEF ??is in [...] MD By signing this report, the attending lead trainer certifies that he or she has personally supervised and interpreted the echocardiogram and has reviewed and or edited and agrees with the written comments contained within the report. Procedure Note Baldomero Foster MD - 06/08/2022 Patient name: Adelia Garvin Date of test: 06/08/2022 Type of test: TTE w/Doppler [facility] #: 0 Date of : 1970 (M) Print Production Manager: Elli Larsen [facility] Referring Physician: CATHERINE ADAMS MD Contrast Agent: Contrast Administered by: Supervised/Interpreted by: Baldomero Foster MD Diagnosis: Location: [facility] Reason for test: HF with impella MV [...] 2=Hypo 3=Akinetic 4=Dyskin./Aneurysm 0=Not visualized) Parasternal Long [place]:MAS=2 BAS=1 MIL=1 IVETH=1 Parasternal Short [place]:MAS=2 MIS=1 CO=1 MIL=1 MAL=2 MA=1 Apical 4 Chambers:=1 MIS=1 BIS=1 BAL=1 MAL=2 AL=2 AC=2 Apical 2 Chambers:AI=1 CO=1 BI=1 BA=1 MA=1 AA=1 AC=2 LV Global [...] in anterior wall and anterior septem sugegsting CAD/CO in the LAD territory. LVEF is in [...] MD By signing this report, the attending lead trainer certifies that he or she has personally [...] vena cava. There is an inferior approach Forest-Liv catheter with tip overlying the right main pulmonary artery. An Impella device is present. A gastric tube courses below the inferior margin of the study. The inferior mediastinum and the entire left hemidiaphragm are excluded from the [id number]. The imaged cardiomediastinal silhouette appears stable. There [...] vena cava. There is an inferior approach Forest-Liv catheter with tip overlying the right main pulmonary artery. An Impella device is present. A gastric tube courses below the inferior margin of the study. The inferior mediastinum and the entire left hemidiaphragm are excluded from the [id number]. The imaged cardiomediastinal silhouette appears stable. There [...] Potassium, whole blood (06/08/2022 11:49 AM CDT) [facility] Potassium, bld 4.1 3.3 - 4.9 mmol/L [facility] Blood 06/08/2022 11:4 9 AM CDT 06/08/2022 12:18 PM CDT Marcelina Lo SUCTION ROLLER LAB BLOOD ORDERABLES Final Re sult Performing Organization Address City/[facility]/ZIP Co de Phone Number [facility] [place] [place] [address] * (ABNORMAL) Hemoglobin total, pulmonary artery (06/08/2022 11:49 AM CDT) [facility] Hemoglobin total, PA 8.4(L) 13.0 - 17.5 g/dL [facility] Blood 06/08/2022 11:4 9 AM CDT 06/08/2022 12:18 PM CDT Marcelina Lo SUCTION ROLLER LAB BLOOD ORDERABLES Final Re sult [facility] [place] [address] * Oxyhemoglobin, pulmonary artery (06/08/2022 11:49 AM CDT) Oxyhemoglobin, PA 63.8 % [facility] Comment: Interpretive Data No reference range established. Current interpretive data was last revised 2019. Blood 06/08/2022 11:4 9 AM CDT 06/08/2022 12:18 PM CDT Marcelina Lo SUCTION ROLLER LAB BLOOD ORDERABLES Final Re sult Performing Organization Address [facility] Co de Phone Number [facility] [place] [address] * POCT glucose (06/08/2022 11:46 AM CDT) Glucose, POC 140 70 - 199 mg/dL [facility] Blood 06/08/2022 11:4 6 AM CDT 06/08/2022 11:46 AM CDT Result [facility] Catherine Adams MD LAB POCT ORDERABLES - DEVIC E Final Result Performing Organization Address [facility] de Phone Number [facility] [place] [address] * (ABNORMAL) Blood gas, arterial (06/08/2022 10:44 AM CDT) pH, Art 7.44 7.35 - 7.45 [facility] PCO2, Arterial 34(L) 35 - 45 mmHg [facility] PO2, Arterial 108 83 - 108 mmHg [facility] HCO3 Art (Calculated) 24 20 - 30 mmol/L [facility] BE, art 0 mmol/L [facility] Comment: Interpretive Data No Reference Range Established Current Interpretive Data was last revised on 2017 O2 Sat Art (Measured) 98(H) 90 - 95 % [facility] Blood 06/08/2022 10:4 4 AM CDT 06/08/2022 10:58 AM CDT Result [facility] Marcelina Lo SUCTION ROLLER LAB BLOOD ORDERABLES Final Re sult Performing Organization Address [facility]/ZIP Co de Phone Number [facility] [place] [address] * POCT glucose (06/08/2022 8:31 AM CDT) Glucose, POC 160 70 - 199 mg/dL [facility] Blood 06/08/2022 8:31 AM CDT 06/08/2022 8:31 AM CDT us Catherine Adams MD LAB POCT ORDERABLES - DEVIC E Final Result Performing Organization Address [facility] de Phone Number [facility] [place] [address] * (ABNORMAL) Blood gas, arterial (06/08/2022 7:57 AM CDT) [facility] pH, Art 7.40 7.35 - 7.45 [facility] PCO2, Arterial 38 35 - 45 mmHg [facility] PO2, Arterial 99 83 - 108 mmHg [facility] HCO3 Art (Calculated) 25 20 - 30 mmol/L [facility] BE, art 0 mmol/L [facility] Comment: Interpretive Data No Reference Range Established Current Interpretive Data was last revised on 2017 O2 Sat Art (Measured) 97(H) 90 - 95 % [facility] Blood 06/08/2022 7:57 AM CDT 06/08/2022 8:22 AM CDT us Marcelina Lo SUCTION ROLLER LAB BLOOD ORDERABLES Final Re sult Performing Organization Address [facility] Co de Phone Number [facility] [place], [place] [id number] * (ABNORMAL) Hemoglobin total, pulmonary artery (06/08/2022 7:57 AM CDT) Hemoglobin total, PA 8.8(L) 13.0 - 17.5 g/dL [facility] Blood 06/08/2022 7:57 AM CDT 06/08/2022 8:22 AM CDT Marcelina Lo SUCTION ROLLER LAB BLOOD ORDERABLES Final Re sult Performing Organization Address [facility] Co de Phone Number [facility] [place] [address] * Oxyhemoglobin, pulmonary artery (06/08/2022 7:57 AM CDT) Oxyhemoglobin, PA 65.7 % [facility] Comment: Interpretive Data No reference range established. Current interpretive data was last revised 2019. Blood 06/08/2022 7:57 AM CDT 06/08/2022 8:22 AM CDT Marcelina Lo SUCTION ROLLER LAB BLOOD ORDERABLES Final Re sult Performing Organization Address [facility] de Phone Number [facility] [place] [address] * X-ray chest 1 view - Portable [...] Impella device. There is an inferior approach Forest-Liv catheter with tip overlying the proximal right [...] Impella device. There is an inferior approach Forest-Liv catheter with tip overlying the proximal right [...] Glucose, POC 157 70 - 199 mg/dL [facility] Blood 06/08/2022 6:29 AM CDT 06/08/2022 6:29 AM CDT Catherine Adams MD LAB POCT ORDERABLES - DEVIC E Final Result Performing Organization Address [facility] de Phone Number [facility] [place] [employer] [address] * POCT glucose (06/08/2022 5:26 AM CDT) Glucose, POC 121 70 - 199 mg/dL [facility] Blood 06/08/2022 5:26 AM CDT 06/08/2022 5:26 AM CDT Result [facility] Catherine Adams MD LAB POCT ORDERABLES - DEVIC E Final Result Performing Organization Address [facility] de Phone Number [facility] [place] [employer] [address] * POCT glucose (06/08/2022 4:16 AM CDT) [facility] Glucose, POC 111 70 - 199 mg/dL [facility] Blood 06/08/2022 4:16 AM CDT 06/08/2022 4:16 AM CDT Result [facility] Catherine Adams MD LAB POCT ORDERABLES - DEVIC E Final Result Performing Organization Address [facility] de Phone Number [facility] [place] [employer] [address] * (ABNORMAL) eGFR (06/08/2022 4:12 AM CDT) [facility] eGFR 8(L) 90 - 130 mL/min/1. 73 m2 [facility] Comment: Interpretive Data Reference Interval [...] BLOOD ORDERABLES Final Result Performing Organization Address [facility] de Phone Number [facility] [place] [address] * (ABNORMAL) Hemoglobin total, pulmonary artery (06/08/2022 4:12 AM CDT) Hemoglobin total, PA 8.6(L) 13.0 - 17.5 g/dL [facility] Blood 06/08/2022 4:12 AM CDT 06/08/2022 4:30 AM CDT us Marcelina Lo SUCTION ROLLER LAB BLOOD ORDERABLES Final Re sult Performing Organization Address City/[facility] Co de Phone Number [facility] [place] [address] * (ABNORMAL) Blood gas, arterial (06/08/2022 4:12 AM CDT) Pathologist [facility] pH, Art 7.41 7.35 - 7.45 [facility] PCO2, Arterial 37 35 - 45 mmHg [facility] PO2, Arterial 57(L) 83 - 108 mmHg [facility] HCO3 Art (Calculated) 24 20 - 30 mmol/L [facility] BE, art -1 mmol/L [facility] Comment: Interpretive Data No Reference Range Established Current Interpretive Data was last revised on 2017 O2 Sat Art (Measured) 88(L) 90 - 95 % [facility] Blood 06/08/2022 4:12 AM CDT 06/08/2022 4:30 AM CDT us Marcelina Lo SUCTION ROLLER LAB BLOOD ORDERABLES Final Re sult Performing Organization Address City/[facility]/ZIP Co de Phone Number [facility] [place] [address] * Oxyhemoglobin, pulmonary artery (06/08/2022 4:12 AM CDT) [facility] Oxyhemoglobin, PA 66.9 % [facility] Comment: Interpretive Data No reference range established. Current interpretive data was last revised 2019. Blood 06/08/2022 4:12 AM CDT 06/08/2022 4:30 AM CDT Marcelina Lo SUCTION ROLLER LAB BLOOD ORDERABLES [place] [address] * Magnesium (06/08/2022 4:12 AM CDT) Pathologist [facility] Magnesium 2.3 1.4 - 2.5 mg/dL [facility] Blood 06/08/2022 4:12 AM CDT 06/08/2022 4:38 AM CDT Catherine Adams MD LAB BLOOD ORDERABLES Final Result [facility] [place] [address] * (ABNORMAL) Basic metabolic panel (06/08/2022 4:12 AM CDT) [facility] Sodium 135 135 - 145 mmol/L [facility] Potassium, pl 4.0 3.3 - 4.9 mmol/L [facility] Chloride 99 97 - 110 mmol/L [facility] CO2 26 22 - 32 mmol/L [facility] Anion gap 10 2 - 15 mmol/L [facility] BUN 67(H) 8 - 25 mg/dL [facility] Creatinine 7.65(H) 0.80 - 1.30 mg/dL [facility] Glucose 109 70 - 199 mg/dL [facility] Comment: Interpretive Data Fasting glucose [...] 2017. Calcium 8.2(L) 8.5 - 10.3 mg/dL [facility] Blood 06/08/2022 4:12 AM CDT 06/08/2022 4:38 AM CDT Catherine Adams MD LAB BLOOD ORDERABLES Final Result Performing Organization Address City/[facility]/ZIP Co de Phone Number [facility] [place] [address] * POCT glucose (06/08/2022 3:00 AM CDT) Glucose, POC 135 70 - 199 mg/dL [facility] Blood 06/08/2022 3:00 AM CDT 06/08/2022 3:00 AM CDT Catherine Adams MD LAB POCT ORDERABLES - DEVIC E Final Result [facility] [place] [address] * (ABNORMAL) Differential, auto (06/08/2022 2:14 AM CDT) Pathologist [facility] Neutrophil abs 8.2(H) 1.7 - 6.5 K/cumm [facility] Imm gran abs 0.4(H) 0.0 - 0.1 K/cumm [facility] Lymphocyte abs 0.5(L) 0.8 - 3.3 K/cumm [facility] Monocyte abs 1.0(H) 0.2 - 0.8 K/cumm [facility] Eosinophil abs 0.0 0.0 - 0.5 K/cumm [facility] Basophil abs 0.0 0.0 - 0.1 K/cumm [facility] Neutrophil pct 81.0 % [facility] Comment: Interpretive Data Percent cell count reference ranges are not reported, since discordance with absolute values may lead to misinterpretation of CBC data. Current Interpretive Data was last revised on 2017. Imm gran pct 3.8 % [facility] Comment: Interpretive Data Percent cell count reference ranges are not reported, since discordance with absolute values may lead to misinterpretation of CBC data. Current Interpretive Data was last revised on 2017. Lymphocyte pct 5.0 % [facility] Comment: Interpretive Data Percent cell count reference ranges are not reported, since discordance with absolute values may lead to misinterpretation of CBC data. Current Interpretive Data was last revised on 2017. Monocyte pct 10.1 % [facility] Comment: Interpretive Data Percent cell count reference ranges are not reported, since discordance with absolute values may lead to misinterpretation of CBC data. Current Interpretive Data was last revised on 2017. Eosinophil pct 0.0 % [facility] Comment: Interpretive Data Percent cell count reference ranges are not reported, since discordance with absolute values may lead to misinterpretation of CBC data. Current Interpretive Data was last revised on 2017. Basophil pct 0.1 % [facility] Comment: Interpretive Data Percent cell count reference ranges are not reported, since discordance with absolute values may lead to misinterpretation of CBC data. Current Interpretive Data was last revised on 2017. Blood 06/08/2022 2:14 AM CDT 06/08/2022 4:38 AM CDT Catherine Adams MD LAB BLOOD ORDERABLES Final Result Performing Organization Address [facility] Co de Phone Number [facility] [place] [address] * POCT glucose (06/08/2022 2:14 AM CDT) Glucose, POC 141 70 - 199 mg/dL [facility] Blood 06/08/2022 2:14 AM CDT 06/08/2022 2:14 AM CDT Catherine Adams MD LAB POCT ORDERABLES - DEVIC E Final Result Performing Organization Address City/[facility] Co de Phone Number [facility] [place] [address] * Potassium, whole blood (06/08/2022 2:14 AM CDT) Potassium, bld 4.0 3.3 - 4.9 mmol/L [facility] Blood 06/08/2022 2:14 AM CDT 06/08/2022 2:22 AM CDT Marcelina Lo SUCTION ROLLER LAB BLOOD ORDERABLES Final Re sult Performing Organization Address [facility] Co de Phone Number [facility] [place] [address] * (ABNORMAL) Blood gas, arterial (06/08/2022 2:14 AM CDT) pH, Art 7.45 7.35 - 7.45 [facility] PCO2, Arterial 33(L) 35 - 45 mmHg [facility] PO2, Arterial 180(H) 83 - 108 mmHg [facility] HCO3 Art (Calculated) 24 20 - 30 mmol/L [facility] BE, art -1 mmol/L [facility] Comment: Interpretive Data No Reference Range Established Current Interpretive Data was last revised on 2017 O2 Sat Art (Measured) 98(H) 90 - 95 % [facility] Blood 06/08/2022 2:14 AM CDT 06/08/2022 2:22 AM CDT Marcelina Lo SUCTION ROLLER LAB BLOOD ORDERABLES Final Re sult Performing Organization Address [facility] Co de Phone Number [facility] [place] [address] * (ABNORMAL) CBC with auto differential (06/08/2022 2:14 AM CDT) Pathologist [facility] WBC 10.1(H) 3.8 - 9.9 K/cumm [facility] Hgb 8.3(L) 13.0 - 17.5 g/dL [facility] Hct 23.1(L) 38.9 - 50.3 % [facility] Plt 218 150 - 400 K/cumm [facility] MPV 11.1 9.1 - 12.3 fL [facility] RBC 2.60(L) 4.30 - 5.80 M/cumm [facility] MCV 88.8 81.3 - 96.4 fL [facility] MCH 31.9 27.1 - 33.3 pg [facility] MCHC 35.9(H) 32.3 - 35.7 g/dL [facility] RDW CV 13.3 11.1 - 14.9 % [facility] RDW SD 43.1 35.7 - 48.1 fL [facility] NRBC abs 0.00 0.00 - 0.01 K/cumm [facility] Blood 06/08/2022 2:14 AM CDT 06/08/2022 4:38 AM CDT us Marcelina Lo SUCTION ROLLER LAB BLOOD ORDERABLES Final Re sult Performing Organization Address City/[facility]/ZIP Co de Phone Number [facility] [place] [address] * POCT glucose (06/08/2022 1:13 AM CDT) Glucose, POC 151 70 - 199 mg/dL [facility] Blood 06/08/2022 1:13 AM CDT 06/08/2022 1:13 AM CDT us Catherine Adams MD LAB POCT ORDERABLES - DEVIC E Final Result Performing Organization Address [facility] Co de Phone Number [facility] [place] [address] * (ABNORMAL) Blood gas, arterial (06/08/2022 12:30 AM CDT) pH, Art 7.50(H) 7.35 - 7.45 [facility] PCO2, Arterial 28(L) 35 - 45 mmHg [facility] PO2, Arterial 144(H) 83 - 108 mmHg [facility] HCO3 Art (Calculated) 22 20 - 30 mmol/L [facility] BE, art 0 mmol/L [facility] Comment: Interpretive Data No Reference Range Established Current Interpretive Data was last revised on 2017 O2 Sat Art (Measured) 98(H) 90 - 95 % [facility] Blood 06/08/2022 12:3 0 AM CDT 06/08/2022 12:39 AM CDT us Marcelina Lo NP LAB BLOOD ORDERABLES Final Re sult Performing Organization Address City/[facility]/ZIP Co de Phone Number [facility] [place] [address] * (ABNORMAL) eGFR (06/08/2022 12:28 AM CDT) eGFR 7(L) 90 - 130 mL/min/1. 73 m2 [facility] Comment: Interpretive Data Reference Interval [...] Adams MD LAB BLOOD ORDERABLES Final Result [facility] [place] [address] * (ABNORMAL) Hemoglobin total, pulmonary artery (06/08/2022 12:28 AM CDT) Hemoglobin total, PA 9.0(L) 13.0 - 17.5 g/dL [facility] Blood 06/08/2022 12:2 8 AM CDT 06/08/2022 12:39 AM CDT Marcelina Lo SUCTION ROLLER LAB BLOOD ORDERABLES Final Re sult Performing Organization Address City/[facility] Co de Phone Number [facility] [place] [address] * Oxyhemoglobin, pulmonary artery (06/08/2022 12:28 AM CDT) Oxyhemoglobin, PA 59.2 % [facility] Comment: Interpretive Data No reference range established. Current interpretive data was last revised 2019. Blood 06/08/2022 12:2 8 AM CDT 06/08/2022 12:39 AM CDT Marcelina Lo SUCTION ROLLER LAB BLOOD ORDERABLES Final Re sult Performing Organization Address City/[facility]/ZIP Co de Phone Number [facility] [place] [address] * Potassium, whole blood (06/08/2022 12:28 AM CDT) Potassium, bld 3.5 3.3 - 4.9 mmol/L [facility] Blood 06/08/2022 12:2 8 AM CDT 06/08/2022 12:39 AM CDT Catherine Adams MD LAB BLOOD ORDERABLES Final Result [facility] [place] [address] * Magnesium (06/08/2022 12:28 AM CDT) [facility] Magnesium 2.2 1.4 - 2.5 mg/dL [facility] Blood 06/08/2022 12:2 8 AM CDT 06/08/2022 12:42 AM CDT Catherine Adams MD LAB BLOOD ORDERABLES Final Result Performing Organization Address [facility]/ZIP Co de Phone Number [facility] [address] * Beta-hydroxybutyrate (06/08/2022 12:28 AM CDT) [facility] Beta-Hydroxybut yrate 0.1 0.0 - 0.5 mmol/L [facility] Blood 06/08/2022 12:2 8 AM CDT 06/08/2022 12:39 AM CDT Catherine Adams MD LAB BLOOD ORDERABLES Edited Result - Final Performing Organization Address [facility] de Phone Number [facility] [place] [address] * (ABNORMAL) Basic metabolic panel (06/08/2022 12:28 AM CDT) [facility] Sodium 135 135 - 145 mmol/L [facility] Potassium, pl 3.5 3.3 - 4.9 mmol/L [facility] Chloride 96(L) 97 - 110 mmol/L [facility] CO2 23 22 - 32 mmol/L [facility] Anion gap 16(H) 2 - 15 mmol/L [facility] BUN 69(H) 8 - 25 mg/dL [facility] Creatinine 8.46(H) 0.80 - 1.30 mg/dL [facility] Glucose 147 70 - 199 mg/dL [facility] Comment: Interpretive Data Fasting glucose [...] 2017. Calcium 7.8(L) 8.5 - 10.3 mg/dL [facility] Blood 06/08/2022 12:2 8 AM CDT 06/08/2022 12:42 AM CDT Catherine Adams MD LAB BLOOD ORDERABLES Final Result Performing Organization Address [facility] de Phone Number [facility] [place] [address] * POCT glucose (06/08/2022 12:09 AM CDT) Glucose, POC 169 70 - 199 mg/dL [facility] Blood 06/08/2022 12:0 9 AM CDT 06/08/2022 12:09 AM CDT Catherine Adams MD LAB POCT ORDERABLES - DEVIC E Final Result Performing Organization Address [facility] de Phone Number [facility] [place] [address] * (ABNORMAL) eGFR (06/07/2022 10:58 PM CDT) eGFR 7(L) 90 - 130 mL/min/1. 73 m2 [facility] Comment: Interpretive Data Reference Interval [...] BLOOD ORDERABLES Final Result Performing Organization Address City/[facility]/ZIP Co de Phone Number [facility] [place] [place] [address] * (ABNORMAL) POCT glucose (06/07/2022 10:58 PM CDT) [facility] Glucose, POC 211(H) 70 - 199 mg/dL [facility] Blood 06/07/2022 10:5 8 PM CDT 06/07/2022 10:58 PM CDT Catherine Adams MD LAB POCT ORDERABLES - DEVIC E Final Result Performing Organization Address City/[facility]/ZIP Co de Phone Number [facility] [place] [address] * Lactate, whole blood (06/07/2022 10:58 PM CDT) Lactate, bld 1.8 0.7 - 2.0 mmol/L [facility] Blood 06/07/2022 10:5 8 PM CDT 06/07/2022 11:05 PM CDT Catherine Adams MD LAB BLOOD ORDERABLES Final Result [facility] [place] [address] * Potassium, whole blood (06/07/2022 10:58 PM CDT) [facility] Potassium, bld 3.4 3.3 - 4.9 mmol/L [facility] Blood 06/07/2022 10:5 8 PM CDT 06/07/2022 11:05 PM CDT Result [facility] Catherine Adams MD LAB BLOOD ORDERABLES Final Result Performing Organization Address [facility] de Phone Number [facility] [place] [address] * (ABNORMAL) Phosphorus (06/07/2022 10:58 PM CDT) Pathologist [facility] Phosphorus, pl 4.7(H) 2.3 - 4.5 mg/dL [facility] Comment:Reviewed Blood 06/07/2022 10:5 8 PM CDT 06/07/2022 11:20 PM CDT Catherine Adams MD LAB BLOOD ORDERABLES Final Result Performing Organization Address City/[facility] Co de Phone Number [facility] [place] [address] * Magnesium (06/07/2022 10:58 PM CDT) Pathologist [facility] Magnesium 2.2 1.4 - 2.5 mg/dL [facility] Blood 06/07/2022 10:5 8 PM CDT 06/07/2022 11:20 PM CDT Catherine Adams MD LAB BLOOD ORDERABLES Final Result [facility] [place] [address] * Beta-hydroxybutyrate (06/07/2022 10:58 PM CDT) [facility] Beta-Hydroxybut yrate 0.1 0.0 - 0.5 mmol/L [facility] Blood 06/07/2022 10:5 8 PM CDT 06/07/2022 11:05 PM CDT Catherine Adams MD LAB BLOOD ORDERABLES Final Result Performing Organization Address City/[facility] Co de Phone Number [facility] [place] [address] * (ABNORMAL) Basic metabolic panel (06/07/2022 10:58 PM CDT) [facility] Sodium 134(L) 135 - 145 mmol/L [facility] Potassium, pl 3.4 3.3 - 4.9 mmol/L [facility] Chloride 95(L) 97 - 110 mmol/L [facility] CO2 23 22 - 32 mmol/L [facility] Anion gap 16(H) 2 - 15 mmol/L [facility] BUN 75(H) 8 - 25 mg/dL [facility] Creatinine 8.92(H) 0.80 - 1.30 mg/dL [facility] Glucose 187 70 - 199 mg/dL [facility] Comment: Interpretive Data Fasting glucose [...] 2017. Calcium 8.1(L) 8.5 - 10.3 mg/dL [facility] Blood 06/07/2022 10:5 8 PM CDT 06/07/2022 11:20 PM CDT us Catherine Adams MD LAB BLOOD ORDERABLES Final Result [facility] [place] [address] * (ABNORMAL) Blood gas, arterial (06/07/2022 10:58 PM CDT) pH, Art 7.46(H) 7.35 - 7.45 [facility] PCO2, Arterial 31(L) 35 - 45 mmHg [facility] PO2, Arterial 73(L) 83 - 108 mmHg [facility] HCO3 Art (Calculated) 22 20 - 30 mmol/L [facility] BE, art -2 mmol/L [facility] Comment: Interpretive Data No Reference Range Established Current Interpretive Data was last revised on 2017 O2 Sat Art (Measured) 95 90 - 95 % [facility] Blood 06/07/2022 10:5 8 PM CDT 06/07/2022 11:05 PM CDT us Marcelina Lo NP LAB BLOOD ORDERABLES Final Re sult [facility] [place] [address] * AR ARTL CATHJ/CANNULJ MNTR/TRANSFUSION SPX PRQ (06/07/2022 10:17 PM CDT) Narrative Eric Reed MD - 06/07/2022 10:17 PM CDT Lavern Morrison MD ? 06/07/2022 10:29 PM Arterial Line Insertion Date/Time: 06/07/2022 10:17 PM Performed by: Lavern Morrison MD Authorized by: Lavern Morrison MD Caspar Protocol: RN Notified of Procedure: yes ?? [...] POC 249(H) 70 - 199 mg/dL [facility] Blood 06/07/2022 9:58 PM CDT 06/07/2022 9:58 PM CDT us Catherine Adams MD LAB POCT ORDERABLES - DEVIC E Final Result [facility] [place] [address] * XR Abdomen Ap 1 Vw (06/07/2022 [...] * Reticulocyte Count (06/07/2022 8:54 PM CDT) [facility] Retics, absolute 0.052 0.020 - 0.087 M/cumm [facility] Retics 2.2 0.4 - 2.9 % [facility] Reticulocyte Hgb 31.7 30.5 - 38.0 pg [facility] Blood 06/07/2022 8:54 PM CDT 06/07/2022 9:52 PM CDT Result [facility] Catherine Adams MD LAB BLOOD ORDERABLES Final Result Performing Organization Address [facility] Co de Phone Number [facility] [place] [address] * (ABNORMAL) Hemoglobin and hematocrit (06/07/2022 8:54 PM CDT) [facility] Hgb 7.5(L) 13.0 - 17.5 g/dL [facility] Comment:Hemoglobin delta due to apparent blood transfusion. Hct 20.9(L) 38.9 - 50.3 % [facility] Blood 06/07/2022 8:54 PM CDT 06/07/2022 9:47 PM CDT Catherine Adams MD LAB BLOOD ORDERABLES Final Result Performing Organization Address City/[facility]/ZIP Co de Phone Number [facility] Department of [employer] [place], [place] [address] * (ABNORMAL) POCT glucose (06/07/2022 8:50 PM CDT) Glucose, POC 304(H) 70 - 199 mg/dL [facility] Blood 06/07/2022 8:50 PM CDT 06/07/2022 8:50 PM CDT Catherine Adams MD LAB POCT ORDERABLES - DEVIC E Final Result Performing Organization Address City/[facility] Co de Phone Number [facility] [place] [address] * (ABNORMAL) Haptoglobin (06/07/2022 8:00 PM CDT) Haptoglobin 312.0(H) 30.0 - 200.0 mg/dL [facility] Blood 06/07/2022 8:00 PM CDT 06/07/2022 8:26 PM CDT Catherine Adams MD LAB BLOOD ORDERABLES Final Result Performing Organization Address [facility] de Phone Number [facility] [place] [address] * (ABNORMAL) Lactate dehydrogenase (LD) (06/07/2022 8:00 PM CDT) Lactate dehydrogenase (LDH) 335(H) 100 - 250 Units/L [facility] Blood 06/07/2022 8:00 PM CDT 06/07/2022 8:26 PM CDT Catherine Adams MD LAB BLOOD ORDERABLES Final Result Performing Organization Address City/[facility] Co de Phone Number [facility] [place] [employer] [address] * (ABNORMAL) Ferritin (06/07/2022 8:00 PM CDT) Ferritin 2,062(H) 30 - 400 ng/mL [facility] Blood 06/07/2022 8:00 PM CDT 06/07/2022 8:26 PM CDT Catherine Adams MD LAB BLOOD ORDERABLES Final Result [facility] [place] [address] * (ABNORMAL) Iron profile w/ IBC (06/07/2022 8:00 PM CDT) [facility] Iron 50 50 - 150 mcg/dL [facility] TIBC 130(L) 250 - 400 mcg/dL [facility] Transferrin saturation 38 20 - 50 % [facility] Blood 06/07/2022 8:00 PM CDT 06/07/2022 8:26 PM CDT Catherine Adams MD LAB BLOOD ORDERAB[place] [address] * Folate (06/07/2022 8:00 PM CDT) Pathologist [facility] Folic acid 8.7 >=5.0 ng/mL [facility] Blood 06/07/2022 8:00 PM CDT 06/07/2022 8:26 PM CDT Catherine Adams MD LAB BLOOD ORDERABLES [place] [address] * Vitamin B12 (06/07/2022 8:00 PM CDT) Pathologist [facility] Vitamin B12 373 230 - 1,250 pg/mL [facility] Blood 06/07/2022 8:00 PM CDT 06/07/2022 8:26 PM CDT Catherine Adams MD LAB BLOOD ORDERABLES Final Result Performing Organization Address [facility] [place] [address] * Oxyhemoglobin, pulmonary artery (06/07/2022 7:57 PM CDT) Oxyhemoglobin, PA 57.3 % [facility] Comment: Interpretive Data No reference range established. Current interpretive data was last revised 2019. Blood 06/07/2022 7:57 PM CDT 06/07/2022 8:09 PM CDT Result [facility] Marcelina Lo SUCTION ROLLER LAB BLOOD ORDERABLES Final Re sult Performing Organization Address [facility] [place] [address] * (ABNORMAL) Hemoglobin total, pulmonary artery (06/07/2022 7:57 PM CDT) Hemoglobin total, PA 8.7(L) 13.0 - 17.5 g/dL [facility] Blood 06/07/2022 7:57 PM CDT 06/07/2022 8:09 PM CDT Result [facility] Marcelina Lo SUCTION ROLLER LAB BLOOD ORDERABLES Final Re sult Performing Organization Address [facility] [place] [address] * (ABNORMAL) aPTT (06/07/2022 7:57 PM CDT) aPTT 44(H) 27 - 37 sec [facility] Comment: Interpretive Data Therapeutic heparin range: 60.0 - 94.0 seconds. Based on correlation with therapeutic heparin activity range of 0.3-0.7 Units/mL. Current interpretive data was last revised on 2020. Blood 06/07/2022 7:57 PM CDT 06/07/2022 8:14 PM CDT Narrative [facility] - 06/07/2022 8:20 PM CDT [...] Ann Marie l Result Performing Organization Address [facility] Co de Phone Number [facility] [place] [address] * Potassium, whole blood (06/07/2022 7:57 PM CDT) Potassium, bld 3.3 3.3 - 4.9 mmol/L [facility] Blood 06/07/2022 7:57 PM CDT 06/07/2022 8:09 PM CDT Result [facility] Catherine Adams MD LAB BLOOD ORDERABLES Final Result Performing Organization Address [facility] de Phone Number [facility] [place] [address] * (ABNORMAL) POCT glucose (06/07/2022 7:51 PM CDT) Glucose, POC 325(H) 70 - 199 mg/dL [facility] Blood 06/07/2022 7:51 PM CDT 06/07/2022 7:51 PM CDT Catherine Adams MD LAB POCT ORDERABLES - DEVIC E Final Result Performing Organization Address [facility] Co de Phone Number [facility] [place] [address] * (ABNORMAL) Differential, auto (06/07/2022 7:42 PM CDT) Neutrophil abs 7.3(H) 1.7 - 6.5 K/cumm [facility] Imm gran abs 0.2(H) 0.0 - 0.1 K/cumm [facility] Lymphocyte abs 0.6(L) 0.8 - 3.3 K/cumm [facility] Monocyte abs 0.5 0.2 - 0.8 K/cumm [facility] Eosinophil abs 0.0 0.0 - 0.5 K/cumm [facility] Basophil abs 0.0 0.0 - 0.1 K/cumm [facility] Neutrophil pct 85.1 % [facility] Comment: Interpretive Data Percent cell count reference ranges are not reported, since discordance with absolute values may lead to misinterpretation of CBC data. Current Interpretive Data was last revised on 2017. Imm gran pct 2.4 % [facility] Comment: Interpretive Data Percent cell count reference ranges are not reported, since discordance with absolute values may lead to misinterpretation of CBC data. Current Interpretive Data was last revised on 2017. Lymphocyte pct 6.6 % [facility] Comment: Interpretive Data Percent cell count reference ranges are not reported, since discordance with absolute values may lead to misinterpretation of CBC data. Current Interpretive Data was last revised on 2017. Monocyte pct 5.8 % [facility] Comment: Interpretive Data Percent cell count reference ranges are not reported, since discordance with absolute values may lead to misinterpretation of CBC data. Current Interpretive Data was last revised on 2017. Eosinophil pct 0.0 % [facility] Comment: Interpretive Data Percent cell count reference ranges are not reported, since discordance with absolute values may lead to misinterpretation of CBC data. Current Interpretive Data was last revised on 2017. Basophil pct 0.1 % [facility] Comment: Interpretive Data Percent cell count reference ranges are not reported, since discordance with absolute values may lead to misinterpretation of CBC data. Current Interpretive Data was last revised on 2017. Blood 06/07/2022 7:42 PM CDT 06/07/2022 8:25 PM CDT Catherine Adams MD LAB BLOOD ORDERABLES Final Result Performing Organization Address [facility] Co de Phone Number [facility] [place] [address] * (ABNORMAL) CBC with auto differential (06/07/2022 7:42 PM CDT) [facility] [facility] WBC 8.6 3.8 - 9.9 K/cumm [facility] Hgb 4.3(C) 13.0 - 17.5 g/dL [facility] Comment:Critical result call ed to and read back by LAVERN MORRISON RN on 06 07 2022 at 2036 to Janis Melton. Hct 12.3(L) 38.9 - 50.3 % [facility] Plt 233 150 - 400 K/cumm [facility] MPV 11.5 9.1 - 12.3 fL [facility] RBC 1.38(L) 4.30 - 5.80 M/cumm [facility] MCV 89.1 81.3 - 96.4 fL [facility] MCH 31.2 27.1 - 33.3 pg [facility] MCHC 35.0 32.3 - 35.7 g/dL [facility] RDW CV 13.3 11.1 - 14.9 % [facility] RDW SD 43.5 35.7 - 48.1 fL [facility] NRBC abs 0.00 0.00 - 0.01 K/cumm [facility] Blood 06/07/2022 7:42 PM CDT 06/07/2022 8:25 PM CDT Catherine Adams MD LAB BLOOD ORDERABLES Final Result Performing Organization Address [facility] Co de Phone Number [facility] [place] [address] * (ABNORMAL) Beta-hydroxybutyrate (06/07/2022 6:24 PM CDT) Beta-Hydroxybut yrate 2.3(H) 0.0 - 0.5 mmol/L [facility] Blood 06/07/2022 6:24 PM CDT 06/07/2022 6:42 PM CDT Catherine Adams MD LAB BLOOD ORDERABLES Final Result [facility] [place] [address] * (ABNORMAL) Differential, auto (06/07/2022 6:24 PM CDT) Pathologist [facility] Neutrophil abs 6.5 1.7 - 6.5 K/cumm [facility] Imm gran abs 0.2(H) 0.0 - 0.1 K/cumm [facility] Lymphocyte abs 0.4(L) 0.8 - 3.3 K/cumm [facility] Monocyte abs 0.3 0.2 - 0.8 K/cumm [facility] Eosinophil abs 0.0 0.0 - 0.5 K/cumm [facility] Basophil abs 0.0 0.0 - 0.1 K/cumm [facility] Neutrophil pct 88.3 % [facility] Comment: Interpretive Data Percent cell count reference ranges are not reported, since discordance with absolute values may lead to misinterpretation of CBC data. Current Interpretive Data was last revised on 2017. Imm gran pct 2.0 % [facility] Comment: Interpretive Data Percent cell count reference ranges are not reported, since discordance with absolute values may lead to misinterpretation of CBC data. Current Interpretive Data was last revised on 2017. Lymphocyte pct 5.3 % [facility] Comment: Interpretive Data Percent cell count reference ranges are not reported, since discordance with absolute values may lead to misinterpretation of CBC data. Current Interpretive Data was last revised on 2017. Monocyte pct 4.4 % [facility] Comment: Interpretive Data Percent cell count reference ranges are not reported, since discordance with absolute values may lead to misinterpretation of CBC data. Current Interpretive Data was last revised on 2017. Eosinophil pct 0.0 % [facility] Comment: Interpretive Data Percent cell count reference [...] MD LAB BLOOD ORDERABLES Final Result [facility] [place] [address] * Blood culture Blood Wrist, right (06/07/2022 [...] organism identification may be performed using the Sportmaniacsigene Gram-Positive Blood Culture Assay. This assay detects microbial DNA in positive blood culture broth via hybridization of target DNA to capture oligonucleotides on a microarray. This assay has been cleared by the [place] Food and Drug Administration and its performance characteristics have been verified by the [facility] Microbiology Laboratory. 5. ?For questions about this culture, contact the Microbiology Laboratory at [phone]. Interpretive data was last revised on 2020. Catherine Adams MD LAB MICROBIOLOGY - GENERAL ORDERABLES Final Result [facility] [place] [address] * Blood culture Blood Central venous catheter (06/07/2022 6:24 PM CDT) Report Final Report: No growth [facility] Blood (Central venous catheter) 06/07/2022 6:24 PM CDT 06/07/2022 6:50 PM CDT Luis [facility] - 06/12/2022 7:00 AM CDT 1. ?Blood [...] performance characteristics have been verified by the [facility] Microbiology Laboratory. 5. ?For questions about this culture, contact the Microbiology Laboratory at [phone]. Interpretive data was last revised on 2020. Catherine Adams MD LAB MICROBIOLOGY - GENERAL ORDERABLES Final Result [facility] [place] [address] * (ABNORMAL) CBC with auto differential (06/07/2022 6:24 PM CDT) WBC 7.3 3.8 - 9.9 K/cumm [facility] Hgb 7.8(L) 13.0 - 17.5 g/dL [facility] Hct 22.1(L) 38.9 - 50.3 % [facility] Plt 194 150 - 400 K/cumm [facility] MPV 11.2 9.1 - 12.3 fL [facility] RBC 2.52(L) 4.30 - 5.80 M/cumm [facility] MCV 87.7 81.3 - 96.4 fL [facility] MCH 31.0 27.1 - 33.3 pg [facility] MCHC 35.3 32.3 - 35.7 g/dL [facility] RDW CV 13.2 11.1 - 14.9 % [facility] RDW SD 42.8 35.7 - 48.1 fL [facility] NRBC abs 0.00 0.00 - 0.01 K/cumm [facility] Blood 06/07/2022 6:24 PM CDT 06/07/2022 6:37 PM CDT Catherine Adams MD LAB BLOOD ORDERABLES Final Result Performing Organization Address City/[facility]/ZIP Co de Phone Number [facility] [place] [address] * XR Chest 1 View (06/07/2022 6:20 [...] Impella device. There is an inferior approach Forest-Liv catheter with tip overlying the proximal right [...] Impella device. There is an inferior approach Forest-Liv catheter with tip overlying the proximal right [...] CDT) pH, Art 7.46(H) 7.35 - 7.45 [facility] PCO2, Arterial 27(L) 35 - 45 mmHg [facility] PO2, Arterial 105 83 - 108 mmHg [facility] HCO3 Art (Calculated) 20 20 - 30 mmol/L [facility] BE, art -4 mmol/L [facility] Comment: Interpretive Data No Reference Range Established Current Interpretive Data was last revised on 2017 O2 Sat Art (Measured) 98(H) 90 - 95 % [facility] Blood 06/07/2022 5:20 PM CDT 06/07/2022 5:26 PM CDT Catherine Adams MD LAB BLOOD ORDERABLES Final Result [facility] [place] [address] * Critical result callback Cardio chemistry (06/07/2022 5:12 PM CDT) Date Notified [id number] [facility] Time Notified 1850 [facility] Test name Troponin [facility] Called/Read Back Anali [facility] Credentials MD [facility] Called By Usha [facility] Blood 06/07/2022 5:12 PM CDT 06/07/2022 6:10 PM CDT Catherine Adams MD LAB BLOOD ORDERABLES Final Result Performing Organization Address [facility] Co de Phone Number [facility] [place] [address] * (ABNORMAL) Troponin I high-sensitivity (06/07/2022 5:12 PM CDT) Pathologist [facility] Trop I hs 2,704(C) <=35 ng/L [facility] Comment: Interpretive Data For further hscTnI resources including the diagnostic algorithm and an aid in interpretation, copy and paste this link: [email or web address] Current Interpretive Data last revised 2020. Blood 06/07/2022 5:12 PM CDT 06/07/2022 5:29 PM CDT Catherine Adams MD LAB BLOOD ORDERABLES Final Result Performing Organization Address [facility] de Phone Number [facility] [place] [address] * Lactate (06/07/2022 5:12 PM CDT) [facility] Lactate 1.3 0.7 - 2.0 mmol/L [facility] Blood 06/07/2022 5:12 PM CDT 06/07/2022 5:22 PM CDT Catherine Adams MD LAB BLOOD ORDERABLES Final Result Performing Organization Address City/[facility] Co de Phone Number [facility] [place] [address] * (ABNORMAL) eGFR (06/07/2022 5:08 PM CDT) [facility] eGFR 5(L) 90 - 130 mL/min/1. 73 m2 [facility] Comment: Interpretive Data Reference Interval [...] BLOOD ORDERABLES Ann Marie kramer Result [facility] [place] [address] * (ABNORMAL) Triglycerides (06/07/2022 5:08 PM CDT) Triglycerides 172(H) <=149 mg/dL [facility] Comment: Hemolyzed; result may be [...] [facility] Co de Phone Number [facility] [place] [address] * (ABNORMAL) Hemoglobin total, central venous (06/07/2022 5:08 PM CDT) Hemoglobin total, CV 8.2(L) 13.0 - 17.5 g/dL [facility] Blood 06/07/2022 5:08 PM CDT 06/07/2022 5:22 PM CDT Narrative [facility] - 06/07/2022 5:25 PM CDT If using Miley Cardiac Output Method Result [facility] Catherine Adams MD LAB BLOOD ORDERABLES Final Result Performing Organization Address City/[facility] Co de Phone Number [facility] [address] * Methemoglobin, central venous (06/07/2022 5:08 PM CDT) Methemoglobin, CV 2.1 % [facility] Comment: Interpretive Data No reference range established. Current interpretive data was last revised 2019. Blood 06/07/2022 5:08 PM CDT 06/07/2022 5:22 PM CDT Narrative [facility] - 06/07/2022 5:25 PM CDT If using Miley Cardiac Output Method Result [facility] Catherine Adams MD LAB BLOOD ORDERABLES Final Result Performing Organization Address [facility] [place] [address] * Carboxyhemoglobin, central venous (06/07/2022 5:08 PM CDT) Carboxyhemoglobin , CV 1.0 % [facility] Comment: Interpretive Data No reference range established. Current interpretive data was last revised 2019. Blood 06/07/2022 5:08 PM CDT 06/07/2022 5:22 PM CDT Narrative [facility] - 06/07/2022 5:26 PM CDT If using Miley Cardiac Output Method Catherine Adams MD LAB BLOOD ORDERABLES Final Result Performing Organization Address [facility] [place] [address] * Oxyhemoglobin, central venous (06/07/2022 5:08 PM CDT) Oxyhemoglobin, CV 66.6 % [facility] Comment: Interpretive Data No reference range established. Current interpretive data was last revised 2019. Blood 06/07/2022 5:08 PM CDT 06/07/2022 5:22 PM CDT Narrative [facility] - 06/07/2022 5:25 PM CDT If using Miley Cardiac Output Method Catherine Adams MD LAB BLOOD ORDERABLES Final Result Performing Organization Address City/[facility] Co de Phone Number [facility] [place] [address] * (ABNORMAL) Phosphorus (06/07/2022 5:08 PM CDT) [facility] Phosphorus, pl 7.2(H) 2.3 - 4.5 mg/dL [facility] Comment:Hemolyzed; result ma y be falsely elevated Blood 06/07/2022 5:08 PM CDT 06/07/2022 5:33 PM CDT Conrad Weston Chi, MD LAB BLOOD ORDERABLES Ann Marie l Result Performing Organization Address [facility] de Phone Number [facility] [place] [address] * Magnesium (06/07/2022 5:08 PM CDT) [facility] Magnesium 2.2 1.4 - 2.5 mg/dL [facility] Blood 06/07/2022 5:08 PM CDT 06/07/2022 5:33 PM CDT Conrad Weston Chi, MD LAB BLOOD ORDERABLES Ann Marie l Result Performing Organization Address [facility] Co de Phone Number [facility] [place] [address] * (ABNORMAL) Comprehensive metabolic panel (06/07/2022 5:08 PM CDT) Sodium 129(L) 135 - 145 mmol/L [facility] Potassium, pl See Comment 3.3 - 4.9 mmol/L [facility] Comment:Credited; Hemolyzed Specimen Chloride 87(L) 97 - 110 mmol/L [facility] CO2 21(L) 22 - 32 mmol/L [facility] Anion gap 21(H) 2 - 15 mmol/L [facility] BUN 80(H) 8 - 25 mg/dL [facility] Creatinine 10.36(H) 0.80 - 1.30 mg/dL [facility] Glucose 329(H) 70 - 199 mg/dL [facility] Comment: Interpretive Data Fasting glucose [...] 2017. Calcium 8.1(L) 8.5 - 10.3 mg/dL [facility] Bilirubin, total 0.8 0.1 - 1.2 mg/dL [facility] Protein, pl 6.0(L) 6.5 - 8.5 g/dL [facility] Albumin 2.5(L) 3.5 - 5.0 g/dL [facility] Alk phos 177(H) 40 - 130 Units/L [facility] Comment:Hemolyzed; result ma y be falsely decreased ALT See Comment 7 - 55 Units/L [facility] Comment:Credited; Hemolyzed Specimen AST See Comment 10 - 50 Units/L [facility] Comment:Credited; Hemolyzed Specimen Blood 06/07/2022 5:08 PM CDT 06/07/2022 5:33 PM CDT Conrad Weston Chi, MD LAB BLOOD ORDERABLES Ann Marie l Result Performing Organization Address [facility] Co de Phone Number [facility] [address] * (ABNORMAL) POCT glucose (06/07/2022 5:00 PM CDT) Pathologist [facility] Glucose, POC 385(H) 70 - 199 mg/dL [facility] Glucose comment 1 Glu2: RN/MD Notified [facility] Blood 06/07/2022 5:00 PM CDT 06/07/2022 5:00 PM CDT Catherine Adams MD LAB POCT ORDERABLES - DEVIC E Final Result Performing Organization Address [facility] Co de Phone Number [facility] [place] [address] * ECG 12 lead (06/07/2022 4:59 PM CDT) [facility] Ventricular Rate EKG/Min 51 BPM [facility] Atrial Rate 51 BPM [facility] AR-Interval (MSEC) 212 ms [facility] QRS-Interval (MSEC) 130 ms [facility] QT-Interval (MSEC) 580 ms [facility] QTc 534 ms [facility] P [place] 69 degrees [facility] R [place] -38 degrees [facility] T [place] 95 degrees [facility] Diagnosis Sinus bradycardia with 1st degree A-V [...] M.D ([id number]) on 06/08/2022 9:42:26 AM [facility] 06/07/2022 4:59 PM CDT 06/08/2022 9:42 AM CDT us Catherine Adams MD ECG ORDERABLES Final Resul t Elix[facility] * MARIELLA MAJOR CORONARY (06/07/2022 3:57 PM CDT) Anatomical Region Laterality Modality X-Ray Angiograph y Narrative 06/07/2022 4:24 PM CDT Cardiac catheterization Interventional fellow: ??Dr. Fernando Talavera HPI 51-year-old morbidly obese male with a history of end-stage renal disease on peritoneal dialysis, hypertension diabetes hyperlipidemia and recent non ST elevation CO now referred for complex PCI. ??Patient is followed at an outside hospital repetitive episodes of flash pulmonary edema/hypertensive urgency despite 3 medications. ??Recently underwent cardiac catheterization revealed a 90% ostial circumflex and a left-dominant circulation, 98% mid circumflex and a 70% om lesion. ??It is felt to be extremely high risk was transferred to [facility]. ?? He had hypoxemic respiratory arrest [...] ??Using ultrasound directed micropuncture technique a 7 Cuban 45 cm sheath placed in the right femoral artery over an Mineral wire. ?? Subsequently, an 8 Cuban sheath inserted into the left femoral vein with placement of a Forest-Liv catheter with the pulmonary artery. ??Heparin was administered to maintain ACT of 300 seconds or greater. ??Angioplasty was performed with a 7 Cuban EBU 3.5 guide catheter, 0.014 in state pilot 50 wire in the circumflex and [...] artery sheath was exchanged for a 14 Cuban Impella sheath. ??An Impella CP was placed into the left ventricle producing 3.2-3.4 liters/minute flow. ??The peel-away sheath was removed and the permanent sheath inserted. ??Two 6 Cuban pro style were placed prior to sheath insertion with preserved sterilely. ?? Impella sheath was sewn in place as well as a Forest-Liv catheter. ?? Trialysis catheter was placed into [...] low range (06/07/2022 2:15 PM CDT) Pathologist [facility] ACT 226(H) 123 - 168 sec [facility] Blood 06/07/2022 2:15 PM CDT 06/07/2022 2:15 PM CDT Catherine Adams MD LAB POCT ORDERABLES - DEVIC E Final Result [facility] [place] [address] * (ABNORMAL) POC Blood Gas and Chemistries, Arterial - (06/07/2022 1:52 PM CDT) [facility] pH, Art POC 7.30(L) 7.35 - 7.45 [facility] pCO2, Art POC 42 35 - 45 mmHg [facility] pO2, Art POC 49(L) 83 - 108 mmHg [facility] Na, POC 132(L) 135 - 145 mmol/L [facility] K POC 4.1 3.3 - 4.9 mmol/L [facility] Comment: Interpretive Data This method is not able to assess for hemolysis, which may falsely increase potassium concentrations. If further testing is needed to evaluate this result, consider in-laboratory plasma potassium. Current Interpretive Data was last revised on 2022. Cl, POC 96(L) 97 - 110 mmol/L [facility] Ionized Ca, POC 4.62 4.50 - 5.10 mg/dL [facility] Glucose, POC 293(H) 70 - 199 mg/dL [facility] Lactate, POC 3.4(H) 0.7 - 2.2 mmol/L [facility] SO2 (uyen) arterial 78(L) 90 - 95 % [facility] Base excess, POC -5.5 mmol/L [facility] HCO3, Art POC 21 20 - 30 mmol/L [facility] Hct, POC 30.0(L) 41.4 - 51.6 % [facility] O2 Sat, Art POC (Calc) 80 % [facility] Total Hb, POC 9.9(L) 13.8 - 17.2 g/dL [facility] Blood 06/07/2022 1:52 PM CDT 06/07/2022 1:52 PM CDT Conrad Weston Chi, MD LAB POCT ORDERABLES - DEV ICE Final Result Performing Organization Address City/[facility]/ZIP Co de Phone Number [facility] [place] [address] * (ABNORMAL) POCT Activated clotting time, low range (06/07/2022 1:49 PM CDT) ACT 214(H) 123 - 168 sec [facility] Blood 06/07/2022 1:49 PM CDT 06/07/2022 1:49 PM CDT Cahterine Adams MD LAB POCT ORDERABLES - DEVIC E Final Result Performing Organization Address City/[facility]/ZIP Co de Phone Number [facility] [place] [address] * (ABNORMAL) POC Blood Gas and Chemistries, Arterial - (06/07/2022 1:31 PM CDT) pH, Art POC 7.16(C) 7.35 - 7.45 [facility] pCO2, Art POC 53(H) 35 - 45 mmHg [facility] pO2, Art POC 41(L) 83 - 108 mmHg [facility] Na, POC 130(L) 135 - 145 mmol/L [facility] K POC 3.5 3.3 - 4.9 mmol/L [facility] Comment: Interpretive Data This method is not able to assess for hemolysis, which may falsely increase potassium concentrations. If further testing is needed to evaluate this result, consider in-laboratory plasma potassium. Current Interpretive Data was last revised on 2022. Cl, POC 93(L) 97 - 110 mmol/L [facility] Ionized Ca, POC 4.29(L) 4.50 - 5.10 mg/dL [facility] Glucose, POC 300(H) 70 - 199 mg/dL [facility] Lactate, POC 5.3(C) 0.7 - 2.2 mmol/L [facility] SO2 (uyen) arterial 59(C) 90 - 95 % [facility] Base excess, POC -10.1 mmol/L [facility] HCO3, Art POC 19(L) 20 - 30 mmol/L [facility] Hct, POC 31.0(L) 41.4 - 51.6 % [facility] O2 Sat, Art POC (Calc) 60 % [facility] Total Hb, POC 10.2(L) 13.8 - 17.2 g/dL [facility] Blood 06/07/2022 1:31 PM CDT 06/07/2022 1:31 PM CDT us Conrad Weston Chi, MD LAB POCT ORDERABLES - DEV ICE Final Result Performing Organization Address City/[facility]/ZIP Co de Phone Number [facility] Department [place] [employer] [place] [address] * (ABNORMAL) POCT Activated clotting time, low range (06/07/2022 12:47 PM CDT) ACT 289(H) 123 - 168 sec [facility] Blood 06/07/2022 12:4 7 PM CDT 06/07/2022 12:47 PM CDT us Catherine Adams MD LAB POCT ORDERABLES - DEVIC E Final Result Performing Organization Address City/[facility]/ZIP Co de Phone Number [facility] [place] [address] * (ABNORMAL) POCT Activated clotting time, low range (06/07/2022 12:32 PM CDT) ACT 249(H) 123 - 168 sec [facility] Blood 06/07/2022 12:3 2 PM CDT 06/07/2022 12:32 PM CDT Catherine Adams MD LAB POCT ORDERABLES - DEVIC E Final Result Performing Organization Address City/[facility] Co de Phone Number [facility] [place] [address] * POCT glucose (06/07/2022 11:27 AM CDT) Pathologist [facility] Glucose, POC 179 70 - 199 mg/dL [facility] Blood 06/07/2022 11:2 7 AM CDT 06/07/2022 11:27 AM CDT us Conrad Weston Chi, MD LAB POCT ORDERABLES - DEV ICE Final Result Performing Organization Address [facility] de Phone Number [facility] [place] [address] * (ABNORMAL) aPTT (06/07/2022 9:59 AM CDT) [facility] aPTT 71(H) 27 - 37 sec [facility] Comment: Interpretive Data Therapeutic heparin range: 60.0 - 94.0 seconds. Based on correlation with therapeutic heparin activity range of 0.3-0.7 Units/mL. Current interpretive data was last revised on 2020. Blood 06/07/2022 9:59 AM CDT 06/07/2022 10:19 AM CDT Narrative [facility] - 06/07/2022 10:46 AM CDT [...] Ann Marie l Result Performing Organization Address [facility] Co de Phone Number [facility] [place] [address] * (ABNORMAL) POCT glucose (06/07/2022 7:59 AM CDT) Glucose, POC 247(H) 70 - 199 mg/dL [facility] Blood 06/07/2022 7:59 AM CDT 06/07/2022 7:59 AM CDT Conrad Weston Chi, MD LAB POCT ORDERABLES - DEV ICE Final Result Performing Organization Address [facility] Co de Phone Number [facility] [place] [employer] [address] * (ABNORMAL) POCT glucose (06/07/2022 4:17 AM CDT) Glucose, POC 239(H) 70 - 199 mg/dL [facility] Blood 06/07/2022 4:17 AM CDT 06/07/2022 4:17 AM CDT Conrad Weston Chi, MD LAB POCT ORDERABLES - DEV ICE Final Result Performing Organization Address [facility] [place] [address] * (ABNORMAL) aPTT (06/07/2022 4:17 AM CDT) aPTT 57(H) 27 - 37 sec [facility] Comment: Interpretive Data Therapeutic heparin range: 60.0 - 94.0 seconds. Based on correlation with therapeutic heparin activity range of 0.3-0.7 Units/mL. Current interpretive data was last revised on 2020. Blood 06/07/2022 4:17 AM CDT 06/07/2022 4:37 AM CDT Narrative [facility] - 06/07/2022 5:01 AM CDT [...] Ann Marie l Result Performing Organization Address [facility] Co de Phone Number [facility] [place] [employer] [address] * POCT glucose (06/06/2022 11:51 PM CDT) Glucose, POC 170 70 - 199 mg/dL [facility] Blood 06/06/2022 11:5 1 PM CDT 06/06/2022 11:51 PM CDT Conrad Weston Chi, MD LAB POCT ORDERABLES - DEV ICE Final Result Performing Organization Address [facility] Co de Phone Number [facility] Department [place] [employer] [place] [address] * POCT glucose (06/06/2022 8:18 PM CDT) Glucose, POC 123 70 - 199 mg/dL [facility] Blood 06/06/2022 8:18 PM CDT 06/06/2022 8:18 PM CDT Conrad Weston Chi, MD LAB POCT ORDERABLES - DEV ICE Final Result Performing Organization Address [facility] Co de Phone Number [facility] [place] [address] * (ABNORMAL) eGFR (06/06/2022 8:16 PM CDT) Pathologist [facility] eGFR 5(L) 90 - 130 mL/min/1. 73 [...] LAB BLOOD ORDERABLES Ann Marie kramer Result [facility] [place] [address] * (ABNORMAL) Differential, auto (06/06/2022 8:16 PM CDT) Pathologist [facility] Neutrophil abs 9.8(H) 1.7 - 6.5 K/cumm [facility] Imm gran abs 0.2(H) 0.0 - 0.1 K/cumm [facility] Lymphocyte abs 0.7(L) 0.8 - 3.3 K/cumm [facility] Monocyte abs 0.9(H) 0.2 - 0.8 K/cumm [facility] Eosinophil abs 0.1 0.0 - 0.5 K/cumm [facility] Basophil abs 0.0 0.0 - 0.1 K/cumm [facility] Neutrophil pct 84.4 % [facility] Comment: Interpretive Data Percent cell count reference ranges are not reported, since discordance with absolute values may lead to misinterpretation of CBC data. Current Interpretive Data was last revised on 2017. Imm gran pct 1.3 % [facility] Comment: Interpretive Data Percent cell count reference ranges are not reported, since discordance with absolute values may lead to misinterpretation of CBC data. Current Interpretive Data was last revised on 2017. Lymphocyte pct 6.0 % [facility] Comment: Interpretive Data Percent cell count reference ranges are not reported, since discordance with absolute values may lead to misinterpretation of CBC data. Current Interpretive Data was last revised on 2017. Monocyte pct 7.6 % [facility] Comment: Interpretive Data Percent cell count reference ranges are not reported, since discordance with absolute values may lead to misinterpretation of CBC data. Current Interpretive Data was last revised on 2017. Eosinophil pct 0.5 % [facility] Comment: Interpretive Data Percent cell count reference ranges are not reported, since discordance with absolute values may lead to misinterpretation of CBC data. Current Interpretive Data was last revised on 2017. Basophil pct 0.2 % [facility] Comment: Interpretive Data Percent cell count reference ranges are not reported, since discordance with absolute values may lead to misinterpretation of CBC data. Current Interpretive Data was last revised on 2017. Blood 06/06/2022 8:16 PM CDT 06/06/2022 8:41 PM CDT Conrad Weston Chi, MD LAB BLOOD ORDERABLES Ann Marie l Result Performing Organization Address City/[facility]/ZIP Co de Phone Number [facility] [place], [place] [id number] * (ABNORMAL) Phosphorus (06/06/2022 8:16 PM CDT) [facility] Phosphorus, pl 6.6(H) 2.3 - 4.5 mg/dL [facility] Blood 06/06/2022 8:16 PM CDT 06/06/2022 8:41 PM CDT Conrad Weston Chi, MD LAB BLOOD ORDERABLES Ann Marie l Result Performing Organization Address [facility] Co de Phone Number [facility] [place] [address] * Magnesium (06/06/2022 8:16 PM CDT) [facility] Magnesium 2.1 1.4 - 2.5 mg/dL [facility] Blood 06/06/2022 8:16 PM CDT 06/06/2022 8:41 PM CDT Conrad Weston Chi, MD LAB BLOOD ORDERABLES Ann Marie l Result Performing Organization Address [facility] Co de Phone Number [facility] [place], [place] [id number] * (ABNORMAL) CBC with auto differential (06/06/2022 8:16 PM CDT) [facility] WBC 11.6(H) 3.8 - 9.9 K/cumm [facility] Hgb 9.3(L) 13.0 - 17.5 g/dL [facility] Hct 26.4(L) 38.9 - 50.3 % [facility] Plt 207 150 - 400 K/cumm [facility] MPV 11.1 9.1 - 12.3 fL [facility] RBC 2.99(L) 4.30 - 5.80 M/cumm [facility] MCV 88.3 81.3 - 96.4 fL [facility] MCH 31.1 27.1 - 33.3 pg [facility] MCHC 35.2 32.3 - 35.7 g/dL [facility] RDW CV 13.1 11.1 - 14.9 % [facility] RDW SD 42.2 35.7 - 48.1 fL [facility] NRBC abs 0.00 0.00 - 0.01 K/cumm [facility] Blood 06/06/2022 8:16 PM CDT 06/06/2022 8:41 PM CDT Conrad Weston Chi, MD LAB BLOOD ORDERABLES Ann Marie l Result [facility] [place] [address] * (ABNORMAL) Comprehensive metabolic panel (06/06/2022 8:16 PM CDT) Pathologist [facility] Sodium 132(L) 135 - 145 mmol/L [facility] Potassium, pl 3.4 3.3 - 4.9 mmol/L [facility] Chloride 89(L) 97 - 110 mmol/L [facility] CO2 25 22 - 32 mmol/L [facility] Anion gap 18(H) 2 - 15 mmol/L [facility] BUN 82(H) 8 - 25 mg/dL [facility] Creatinine 10.45(H) 0.80 - 1.30 mg/dL [facility] Glucose 112 70 - 199 mg/dL [facility] Comment: Interpretive Data Fasting glucose [...] 2017. Calcium 7.5(L) 8.5 - 10.3 mg/dL [facility] Bilirubin, total 0.7 0.1 - 1.2 mg/dL [facility] Protein, pl 6.5 6.5 - 8.5 g/dL [facility] Albumin 3.2(L) 3.5 - 5.0 g/dL [facility] Alk phos 135(H) 40 - 130 Units/L [facility] ALT 40 7 - 55 Units/L [facility] AST 45 10 - 50 Units/L [facility] Blood 06/06/2022 8:16 PM CDT 06/06/2022 8:41 PM CDT Result [facility] Conrad Weston Chi, MD LAB BLOOD ORDERABLES Ann Marie l Result Performing Organization Address City/[facility]/ZIP Co de Phone Number [facility] [place] [address] * POCT glucose (06/06/2022 5:53 PM CDT) Glucose, POC 99 70 - 199 mg/dL [facility] Blood 06/06/2022 5:53 PM CDT 06/06/2022 5:53 PM CDT Result [facility] Conrad Weston Chi, MD LAB POCT ORDERABLES - DEV ICE Final Result [facility] [place] [address] * POCT glucose (06/06/2022 11:38 AM CDT) Glucose, POC 108 70 - 199 mg/dL [facility] Blood 06/06/2022 11:3 8 AM CDT 06/06/2022 11:38 AM CDT Conrad Weston Chi, MD LAB POCT ORDERABLES - DEV ICE Final Result Performing Organization Address [facility] Co de Phone Number [facility] [place] [address] * (ABNORMAL) aPTT (06/06/2022 10:26 AM CDT) aPTT 71(H) 27 - 37 sec [facility] Comment: Interpretive Data Therapeutic heparin range: 60.0 - 94.0 seconds. Based on correlation with therapeutic heparin activity range of 0.3-0.7 Units/mL. Current interpretive data was last revised on 2020. Blood 06/06/2022 10:2 6 AM CDT 06/06/2022 10:37 AM CDT Narrative [facility] - 06/06/2022 11:02 AM CDT [...] Ann Marie l Result Performing Organization Address [facility] de Phone Number [facility] [place] [address] * POCT glucose (06/06/2022 8:06 AM CDT) Glucose, POC 109 70 - 199 mg/dL [facility] Blood 06/06/2022 8:06 AM CDT 06/06/2022 8:06 AM CDT Conrad Weston Chi, MD LAB POCT ORDERABLES - DEV ICE Final Result Performing Organization Address [facility] Co de Phone Number [facility] [place] [address] * XR Chest 1 View (06/06/2022 4:45 [...] Glucose, POC 164 70 - 199 mg/dL [facility] Blood 06/06/2022 3:49 AM CDT 06/06/2022 3:49 AM CDT Conrad Weston Chi, MD LAB POCT ORDERABLES - DEV ICE Final Result Performing Organization Address [facility] Co de Phone Number [facility] [place] [address] * (ABNORMAL) aPTT (06/06/2022 3:41 AM CDT) aPTT 65(H) 27 - 37 sec [facility] Comment: Interpretive Data Therapeutic heparin range: 60.0 - 94.0 seconds. Based on correlation with therapeutic heparin activity range of 0.3-0.7 Units/mL. Current interpretive data was last revised on 2020. Blood 06/06/2022 3:41 AM CDT 06/06/2022 4:23 AM CDT Narrative [facility] - 06/06/2022 4:32 AM CDT [...] Ann Marie l Result Performing Organization Address [facility] Co de Phone Number [facility] [place] [address] * (ABNORMAL) Blood gas, arterial (06/06/2022 1:14 AM CDT) pH, Art 7.39 7.35 - 7.45 [facility] PCO2, Arterial 37 35 - 45 mmHg [facility] PO2, Arterial 169(H) 83 - 108 mmHg [facility] HCO3 Art (Calculated) 23 20 - 30 mmol/L [facility] BE, art -2 mmol/L [facility] Comment: Interpretive Data No Reference Range Established Current Interpretive Data was last revised on 2017 O2 Sat Art (Measured) 99(H) 90 - 95 % [facility] Blood 06/06/2022 1:14 AM CDT 06/06/2022 1:29 AM CDT Conrad Weston Chi, MD LAB BLOOD ORDERABLES Ann Marie l Result Performing Organization Address [facility] Co de Phone Number [facility] [place] [address] * POCT glucose (06/06/2022 12:01 AM CDT) Glucose, POC 192 70 - 199 mg/dL [facility] Blood 06/06/2022 12:0 1 AM CDT 06/06/2022 12:01 AM CDT Conrad Weston Chi, MD LAB POCT ORDERABLES - DEV ICE Final Result Performing Organization Address [facility] de Phone Number [facility] [place] [address] * XR Abdomen Ap 1 Vw (06/05/2022 11:30 PM CDT) Anatomical Region Laterality Modality Body, Abdomen N/A Computed Radiogr aphy 06/06/2022 9:30 AM CDT Impressions 06/06/2022 11:54 AM CDT A single view of the abdomen is submitted for evaluation. The pelvis is excluded from the notxn-[id number] and unavailable for interpretation. ??A rounded density [...] evaluation. The pelvis is excluded from the [id number] and unavailable for interpretation. A rounded density [...] * POCT glucose (06/05/2022 9:13 PM CDT) [facility] Glucose, POC 195 70 - 199 mg/dL [facility] Blood 06/05/2022 9:13 PM CDT 06/05/2022 9:13 PM CDT Conrad Weston Chi, MD LAB POCT ORDERABLES - DEV ICE Final Result [facility] [place] [address] * (ABNORMAL) eGFR (06/05/2022 8:47 PM CDT) [facility] eGFR 6(L) 90 - 130 mL/min/1. 73 m2 [facility] Comment: Interpretive Data Reference Interval [...] MD PhD LAB BLOOD ORDERABLES Final Result [facility] [place] [address] * (ABNORMAL) Urinalysis, microscopic only (06/05/2022 8:47 PM CDT) WBC, ur 6-10(A) 0 - 5 /HPF [facility] RBC, ur >50(A) 0 - 2 /HPF [facility] Epithelial cells, squamous, ur 1-5 0 - 5 /HPF [facility] Epithelial cells, transitional, ur 1-5 0 - 0 /HPF [facility] Bacteria, ur 2+(A) [facility] Mucous, ur Present(A) [facility] Hyaline casts, ur 11-20(A) 0 - 10 /LPF [facility] Culture Reflex Comment Reflex conditions for urine culture (WBC >10) not met. [facility] Urine 06/05/2022 8:47 PM CDT 06/05/2022 9:32 PM CDT us Conrad Weston Chi, MD LAB URINE ORDERABLES Ann Marie kramer Result [facility] [place] [address] * (ABNORMAL) Differential, auto (06/05/2022 8:47 PM CDT) Neutrophil abs 7.7(H) 1.7 - 6.5 K/cumm [facility] Imm gran abs 0.1 0.0 - 0.1 K/cumm [facility] Lymphocyte abs 0.5(L) 0.8 - 3.3 K/cumm [facility] Monocyte abs 0.7 0.2 - 0.8 K/cumm [facility] Eosinophil abs 0.0 0.0 - 0.5 K/cumm [facility] Basophil abs 0.0 0.0 - 0.1 K/cumm [facility] Neutrophil pct 85.3 % [facility] Comment: Interpretive Data Percent cell count reference ranges are not reported, since discordance with absolute values may lead to misinterpretation of CBC data. Current Interpretive Data was last revised on 2017. Imm gran pct 1.3 % [facility] Comment: Interpretive Data Percent cell count reference ranges are not reported, since discordance with absolute values may lead to misinterpretation of CBC data. Current Interpretive Data was last revised on 2017. Lymphocyte pct 5.8 % [facility] Comment: Interpretive Data Percent cell count reference ranges are not reported, since discordance with absolute values may lead to misinterpretation of CBC data. Current Interpretive Data was last revised on 2017. Monocyte pct 7.5 % [facility] Comment: Interpretive Data Percent cell count reference ranges are not reported, since discordance with absolute values may lead to misinterpretation of CBC data. Current Interpretive Data was last revised on 2017. Eosinophil pct 0.0 % [facility] Comment: Interpretive Data Percent cell count reference ranges are not reported, since discordance with absolute values may lead to misinterpretation of CBC data. Current Interpretive Data was last revised on 2017. Basophil pct 0.1 % [facility] Comment: Interpretive Data Percent cell count reference ranges are not reported, since discordance with absolute values may lead to misinterpretation of CBC data. Current Interpretive Data was last revised on 2017. Blood 06/05/2022 8:47 PM CDT 06/05/2022 9:45 PM CDT Champ Osborne MD PhD LAB BLOOD ORDERABLES Final Result Performing Organization Address [facility] Co de Phone Number [facility] [place] [address] * (ABNORMAL) Blood gas, arterial (06/05/2022 8:47 PM CDT) Pathologist [facility] pH, Art 7.38 7.35 - 7.45 [facility] PCO2, Arterial 37 35 - 45 mmHg [facility] PO2, Arterial 76(L) 83 - 108 mmHg [facility] HCO3 Art (Calculated) 22 20 - 30 mmol/L [facility] BE, art -3 mmol/L [facility] Comment: Interpretive Data No Reference Range Established Current Interpretive Data was last revised on 2017 O2 Sat Art (Measured) 94 90 - 95 % [facility] Blood 06/05/2022 8:47 PM CDT 06/05/2022 9:32 PM CDT Result [facility] Conrad Weston Chi, MD LAB BLOOD ORDERABLES Ann Marie l Result Performing Organization Address [facility] Co de Phone Number [facility] [place] [address] * (ABNORMAL) Troponin I high-sensitivity (06/05/2022 8:47 PM CDT) Pathologist [facility] Trop I hs 3,996(C) <=35 ng/L [facility] Comment: Previous critical value noted within 48 hours ago. Interpretive Data For further hscTnI resources including the diagnostic algorithm and an aid in interpretation, copy and paste this link: [email or web address].testcatalog.org/[email or web address] Current Interpretive Data last revised 2020. Blood 06/05/2022 8:47 PM CDT 06/05/2022 9:47 PM CDT Conrad Weston Chi, MD LAB BLOOD ORDERABLES Ann Marie l Result Performing Organization Address [facility]/ZIP Co de Phone Number [facility] [place] [address] * (ABNORMAL) Urinalysis reflex to microscopic and culture Urine (06/05/2022 8:47 PM CDT) Color, ur Yellow Yellow [facility] Clarity, ur Cloudy(A) Clear [facility] Specific gravity, ur 1.037(H) 1.003 - 1.030 [facility] pH, urine 6.0 [facility] Protein, ur ql 3+(A) Negative [facility] Glucose, ur ql 3+(A) Negative [facility] Ketones, ur Negative Negative [facility] Bilirubin, ur Negative Negative [facility] Blood, ur 3+(A) Negative [facility] Urobilinogen, ur <2.0 <2.0 mg/dL [facility] Nitrite, ur Negative Negative [facility] Leukocyte esterase, ur Negative Negative [facility] UA reflex comment Reflex to microscopic UA will be performed. [facility] Urine 06/05/2022 8:47 PM CDT [...] tendency for uric acid stone formation. Source: [employer]. Last revised 08-31-2017 Conrad Weston Chi, MD LAB MICROBIOLOGY - GENERA L ORDERABLES Final Result Performing Organization Address [facility]/ZIP Co de Phone Number [facility] [place] [address] * (ABNORMAL) Phosphorus (06/05/2022 8:47 PM CDT) [facility] Phosphorus, pl 6.5(H) 2.3 - 4.5 mg/dL [facility] Blood 06/05/2022 8:47 PM CDT 06/05/2022 9:46 PM CDT Conrad Weston Chi, MD LAB BLOOD ORDERABLES Ann Marie l Result Performing Organization Address City/[facility]/ZIP Co de Phone Number [facility] [place] [address] * Magnesium (06/05/2022 8:47 PM CDT) [facility] Magnesium 1.9 1.4 - 2.5 mg/dL [facility] Blood 06/05/2022 8:47 PM CDT 06/05/2022 9:46 PM CDT Conrad Weston Chi, MD LAB BLOOD ORDERABLES Ann Marie l Result Performing Organization Address City/[facility]/ZIP Co de Phone Number [facility] [place] [address] * (ABNORMAL) CBC with auto differential (06/05/2022 8:47 PM CDT) [facility] WBC 9.1 3.8 - 9.9 K/cumm [facility] Hgb 9.3(L) 13.0 - 17.5 g/dL [facility] Hct 26.0(L) 38.9 - 50.3 % [facility] Plt 201 150 - 400 K/cumm [facility] MPV 11.3 9.1 - 12.3 fL [facility] RBC 2.95(L) 4.30 - 5.80 M/cumm [facility] MCV 88.1 81.3 - 96.4 fL [facility] MCH 31.5 27.1 - 33.3 pg [facility] MCHC 35.8(H) 32.3 - 35.7 g/dL [facility] RDW CV 12.6 11.1 - 14.9 % [facility] RDW SD 40.7 35.7 - 48.1 fL [facility] NRBC abs 0.00 0.00 - 0.01 K/cumm [facility] Blood 06/05/2022 8:47 PM CDT 06/05/2022 9:45 PM CDT us Conrad Weston Chi, MD LAB BLOOD ORDERABLES Ann Marie kramer Result [facility] [place] [address] * (ABNORMAL) Comprehensive metabolic panel (06/05/2022 8:47 PM CDT) Sodium 132(L) 135 - 145 mmol/L [facility] Potassium, pl 3.6 3.3 - 4.9 mmol/L [facility] Chloride 90(L) 97 - 110 mmol/L [facility] CO2 25 22 - 32 mmol/L [facility] Anion gap 17(H) 2 - 15 mmol/L [facility] BUN 84(H) 8 - 25 mg/dL [facility] Creatinine 9.77(H) 0.80 - 1.30 mg/dL [facility] Glucose 180 70 - 199 mg/dL [facility] Comment: Interpretive Data Fasting glucose [...] 2017. Calcium 7.8(L) 8.5 - 10.3 mg/dL [facility] Bilirubin, total 0.6 0.1 - 1.2 mg/dL [facility] Protein, pl 6.3(L) 6.5 - 8.5 g/dL [facility] Albumin 3.4(L) 3.5 - 5.0 g/dL [facility] Alk phos 126 40 - 130 Units/L [facility] ALT 43 7 - 55 Units/L [facility] AST 46 10 - 50 Units/L [facility] Blood 06/05/2022 8:47 PM CDT 06/05/2022 9:46 PM CDT Conrad Weston Chi, MD LAB BLOOD ORDERABLES Ann Marie l Result Performing Organization Address [facility] de Phone Number [facility] [place] [address] * Cell Differential, Body Fluid (06/05/2022 8:36 PM CDT) Total cells diffed 100 cells [facility] Comment: Interpretive Data Unless otherwise specified, the reference range and other method performance specifications have not been established for CSF/Body Fluid tests. ??The test results should be integrated into the clinical context for interpretation. Current interpretive data was last revised on 2019. Neutrophils, fld 4 % [facility] Lymphs, fld 9 % [facility] Monocyte, fld 68 % [facility] Macrophages, fld 18 % [facility] [facility] Mesothelial cells, fld 1 % [facility] Fluid 06/05/2022 8:36 PM CDT 06/05/2022 9:01 PM CDT Conrad Weston Chi, MD LAB BODY FLUIDS AND STOOL S ORDERABLES Final Result Performing Organization Address [facility] Co de Phone Number [facility] [place] [address] * Aerobic and anaerobic culture and gram stain Peritoneal dialysis fluid Abdominal (06/05/2022 8:36 PM CDT) Direct Specimen Exam Stain: Cytospin Gram stain shows: No polymorphonuclear leukocytes seen. Other cellular material present. No organisms seen. [facility] Report Final Report: No growth [facility] Peritoneal dialysis fluid (Abdominal) 06/05/2022 8:36 PM CDT 06/05/2022 11:56 PM CDT Narrative [facility] - 06/11/2022 1:37 PM CDT Testing performed by [facility] Microbiology Laboratory ([phone]) Specimens submitted from normally sterile body sites [...] MICROBIOLOGY - GENERA L ORDERABLES Final Result [facility] [place] [address] * Cell count with reflex to differential, body fluid (06/05/2022 8:36 PM CDT) Specimen type, fld Peritoneal [facility] Color, fld Straw [facility] Clarity, fld Clear Clear [facility] Nucleated cells, fld 11 /cumm [facility] Comment: Interpretive Data Unless otherwise specified, the reference range and other method performance specifications have not been established for CSF/Body Fluid tests. ??The test results should be integrated into the clinical context for interpretation. Current interpretive data was last revised on 2019. RBC, fld 0 /cumm [facility] Fluid 06/05/2022 8:36 PM CDT 06/05/2022 9:01 PM CDT Conrad Weston Chi, MD LAB BODY FLUIDS AND STOOL S ORDERABLES Final Result Performing Organization Address [facility] Co de Phone Number [facility] [place] [employer] [address] * Lipase (06/05/2022 6:39 PM CDT) Lipase 14 10 - 99 Units/L [facility] Blood 06/05/2022 6:39 PM CDT 06/05/2022 6:53 PM CDT Conrad Weston Chi, MD LAB BLOOD ORDERABLES Ann Marie l Result Performing Organization Address [facility] [place] [address] * (ABNORMAL) aPTT (06/05/2022 6:34 PM CDT) aPTT 38(H) 27 - 37 sec [facility] Comment: Interpretive Data Therapeutic heparin range: 60.0 - 94.0 seconds. Based on correlation with therapeutic heparin activity range of 0.3-0.7 Units/mL. Current interpretive data was last revised on 2020. Blood 06/05/2022 6:34 PM CDT 06/05/2022 6:40 PM CDT Conrad Weston Chi, MD LAB BLOOD ORDERABLES Ann Marie l Result Performing Organization Address [facility] Co de Phone Number [facility] [place] [employer] [address] * US RUQ (06/05/2022 6:12 PM CDT) [...] POC 275(H) 70 - 199 mg/dL [facility] Blood 06/05/2022 5:07 PM CDT 06/05/2022 5:07 PM CDT Conrad Weston Chi, MD LAB POCT ORDERABLES - DEV ICE Final Result [facility] [place] [address] * Blood culture Blood Antecubital, left (06/05/2022 5:06 PM CDT) Report Final Report: No growth [facility] Blood (Antecubital, left) 06/05/2022 5:06 PM CDT 06/05/2022 5:21 PM CDT Narrative [facility] - 06/10/2022 7:01 AM CDT From a [...] organism identification may be performed using the Sportmaniac[employer]ene Gram-Positive Blood Culture Assay. This assay detects microbial DNA in positive blood culture broth via hybridization of target DNA to capture oligonucleotides on a microarray. This assay has been cleared by the [place] Food and Drug Administration and its performance characteristics have been verified by the [facility] Microbiology Laboratory. 5. ?For questions about this culture, contact the Microbiology Laboratory at [phone]. Interpretive data was last revised on 2020. us Conrad Weston Chi, MD LAB MICROBIOLOGY - GENERA L ORDERABLES Final Result [facility] [place] [address] * Blood culture Blood Antecubital, right (06/05/2022 [...] organism identification may be performed using the Sportmaniac[employer] Gram-Positive Blood Culture Assay. This assay detects microbial DNA in positive blood culture broth via hybridization of target DNA to capture oligonucleotides on a microarray. This assay has been cleared by the [place] Food and Drug Administration and its performance characteristics have been verified by the [facility] Microbiology Laboratory. 5. ?For questions about this culture, contact the Microbiology Laboratory at [phone]. Interpretive data was last revised on 2020. Conrad Weston Chi, MD LAB MICROBIOLOGY - GENERA L ORDERABLES Final Result Performing Organization Address City/[facility] Co de Phone Number [facility] [place] [address] * (ABNORMAL) Troponin I high-sensitivity (06/05/2022 4:07 PM CDT) [facility] Trop I hs 4,266(C) <=35 ng/L [facility] Comment: Previous critical value noted within 48 hours ago. Interpretive Data For further hscTnI resources including the diagnostic algorithm and an aid in interpretation, copy and paste this link: https://bjhlab.testcatalog.org/show/[email or web address] Current Interpretive Data last revised 2020. Blood 06/05/2022 4:07 PM CDT 06/05/2022 4:27 PM CDT Conrad Weston Chi, MD LAB BLOOD ORDERABLES Ann Marie l Result Performing Organization Address [facility] Co de Phone Number [facility] [place] [address] * (ABNORMAL) eGFR (06/05/2022 3:54 PM CDT) Pathologist [facility] eGFR 6(L) 90 - 130 mL/min/1. 73 [...] PhD LAB BLOOD ORDERABLES Final Result [facility] [place] [address] * (ABNORMAL) Differential, auto (06/05/2022 3:54 PM CDT) [facility] Neutrophil abs 9.2(H) 1.7 - 6.5 K/cumm [facility] Imm gran abs 0.1 0.0 - 0.1 K/cumm [facility] Lymphocyte abs 0.6(L) 0.8 - 3.3 K/cumm [facility] Monocyte abs 0.8 0.2 - 0.8 K/cumm [facility] Eosinophil abs 0.0 0.0 - 0.5 K/cumm [facility] Basophil abs 0.0 0.0 - 0.1 K/cumm [facility] Neutrophil pct 86.0 % [facility] Comment: Interpretive Data Percent cell count reference ranges are not reported, since discordance with absolute values may lead to misinterpretation of CBC data. Current Interpretive Data was last revised on 2017. Imm gran pct 0.8 % [facility] Comment: Interpretive Data Percent cell count reference ranges are not reported, since discordance with absolute values may lead to misinterpretation of CBC data. Current Interpretive Data was last revised on 2017. Lymphocyte pct 5.6 % [facility] Comment: Interpretive Data Percent cell count reference ranges are not reported, since discordance with absolute values may lead to misinterpretation of CBC data. Current Interpretive Data was last revised on 2017. Monocyte pct 7.4 % [facility] Comment: Interpretive Data Percent cell count reference ranges are not reported, since discordance with absolute values may lead to misinterpretation of CBC data. Current Interpretive Data was last revised on 2017. Eosinophil pct 0.1 % [facility] Comment: Interpretive Data Percent cell count reference ranges are not reported, since discordance with absolute values may lead to misinterpretation of CBC data. Current Interpretive Data was last revised on 2017. Basophil pct 0.1 % [facility] Comment: Interpretive Data Percent cell [...] Co de Phone Number [facility] [place] [employer] [address] * Type and screen (06/05/2022 3:54 PM CDT) ABO Rh A Positive [facility] Maribel, indirect Negative [facility] Blood 06/05/2022 3:54 PM CDT 06/05/2022 4:18 PM CDT Narrative [facility] - 06/05/2022 5:07 PM CDT Has the patient had Daratumumab or Isatuximab in the past 6 months?->Unknown Champ Osborne MD PhD LAB BLOOD BANK TEST ORDERA BLES Final Result Performing Organization Address [facility] [place] [address] * (ABNORMAL) aPTT (06/05/2022 3:54 PM CDT) aPTT 45(H) 27 - 37 sec [facility] Comment: Interpretive Data Therapeutic heparin range: 60.0 - 94.0 seconds. Based on correlation with therapeutic heparin activity range of 0.3-0.7 Units/mL. Current interpretive data was last revised on 2020. Blood (Blood, Venous) 06/05/2022 3:54 PM CDT 06/05/2022 4:16 PM CDT Champ Osborne MD PhD LAB BLOOD ORDERABLES Final Result Performing Organization Address [facility] [place] [address] * Protime-INR (06/05/2022 3:54 PM CDT) PT 10.8 9.2 - 13.5 sec [facility] INR 1.0 0.9 - 1.2 [facility] Comment: Interpretive data Oral anticoagulant [...] MD PhD LAB BLOOD ORDERABLES Final Result [facility] [place] [address] * (ABNORMAL) CBC with auto differential (06/05/2022 3:54 PM CDT) WBC 10.7(H) 3.8 - 9.9 K/cumm [facility] Hgb 10.3(L) 13.0 - 17.5 g/dL [facility] Hct 29.1(L) 38.9 - 50.3 % [facility] Plt 238 150 - 400 K/cumm [facility] MPV 11.1 9.1 - 12.3 fL [facility] RBC 3.32(L) 4.30 - 5.80 M/cumm [facility] MCV 87.7 81.3 - 96.4 fL [facility] MCH 31.0 27.1 - 33.3 pg [facility] MCHC 35.4 32.3 - 35.7 g/dL [facility] RDW CV 12.5 11.1 - 14.9 % [facility] RDW SD 40.3 35.7 - 48.1 fL [facility] NRBC abs 0.00 0.00 - 0.01 K/cumm [facility] Blood 06/05/2022 3:54 PM CDT 06/05/2022 4:27 PM CDT Champ Osborne MD PhD LAB BLOOD ORDERABLES Final Result [facility] [place] [address] * Lactate (06/05/2022 3:54 PM CDT) [facility] Lactate 1.6 0.7 - 2.0 mmol/L [facility] Blood 06/05/2022 3:54 PM CDT 06/05/2022 4:27 PM CDT Champ Osborne MD PhD LAB BLOOD ORDERABLES Final Result Performing Organization Address [facility] de Phone Number [facility] [place] [address] * (ABNORMAL) Basic metabolic panel (06/05/2022 3:54 PM CDT) [facility] Sodium 132(L) 135 - 145 mmol/L [facility] Potassium, pl 4.1 3.3 - 4.9 mmol/L [facility] Chloride 87(L) 97 - 110 mmol/L [facility] CO2 26 22 - 32 mmol/L [facility] Anion gap 19(H) 2 - 15 mmol/L [facility] BUN 81(H) 8 - 25 mg/dL [facility] Creatinine 9.08(H) 0.80 - 1.30 mg/dL [facility] Glucose 276(H) 70 - 199 mg/dL [facility] Comment: Interpretive Data Fasting glucose [...] 2017. Calcium 8.1(L) 8.5 - 10.3 mg/dL [facility] Blood 06/05/2022 3:54 PM CDT 06/05/2022 4:27 PM CDT us Champ Osborne MD PhD LAB BLOOD ORDERABLES Final Result Performing Organization Address [facility] de Phone Number [facility] [place] [address] * (ABNORMAL) POCT glucose (06/05/2022 3:46 PM CDT) Glucose, POC 279(H) 70 - 199 mg/dL [facility] Blood 06/05/2022 3:46 PM CDT 06/05/2022 3:46 PM CDT us Conrad Weston Chi, MD LAB POCT ORDERABLES - DEV ICE Final Result Performing Organization Address [facility] de Phone Number [facility] [place] [address] * (ABNORMAL) eGFR (06/05/2022 3:22 PM CDT) [facility] eGFR 6(L) 90 - 130 mL/min/1. 73 m2 [facility] Comment: Interpretive Data Reference Interval [...] BLOOD ORDERABLES Final Result Performing Organization Address City/[facility]/ZIP Co de Phone Number [facility] [employer] [address] * (ABNORMAL) POCT [id number], WB - ISTAT (06/05/2022 3:22 PM CDT) Pathologist [facility] Na POC 126(L) 135 - 145 mmol/L [facility] K POC 3.6 3.3 - 4.9 mmol/L [facility] Comment: Interpretive Data This method is not able to assess for hemolysis, which may falsely increase potassium concentrations. If further testing is needed to evaluate this result, consider in-laboratory plasma potassium. Current Interpretive Data was last revised on 2022. Glucose POC i-STAT 287(H) 70 - 199 mg/dL [facility] Hct, POC 30.0(L) 38.9 - 50.3 % [facility] Blood 06/05/2022 3:22 PM CDT 06/05/2022 3:22 PM CDT us Champ Osborne MD PhD LAB POCT ORDERABLES - APRIL CE Final Result Performing Organization Address City/[facility]/ZIP Co de Phone Number [facility] [place] [employer] [place] [address] * Magnesium (06/05/2022 3:22 PM CDT) Pathologist [facility] Magnesium 2.1 1.4 - 2.5 mg/dL [facility] Blood 06/05/2022 3:22 PM CDT 06/05/2022 3:59 PM CDT Champ Osborne MD PhD LAB BLOOD ORDERABLES Final Result [facility] [place] [address] * (ABNORMAL) Basic metabolic panel (06/05/2022 3:22 PM CDT) [facility] Sodium 127(L) 135 - 145 mmol/L [facility] Potassium, pl 3.9 3.3 - 4.9 mmol/L [facility] Comment:Hemolyzed; Potassium value may be falsely elevated by as much as 0.3-0.5 mmol/L. Suggest redraw and reanalysis. Chloride 88(L) 97 - 110 mmol/L [facility] CO2 19(L) 22 - 32 mmol/L [facility] Anion gap 20(H) 2 - 15 mmol/L [facility] BUN 79(H) 8 - 25 mg/dL [facility] Creatinine 9.13(H) 0.80 - 1.30 mg/dL [facility] Glucose 294(H) 70 - 199 mg/dL [facility] Comment: Interpretive Data Fasting glucose [...] 2017. Calcium 8.2(L) 8.5 - 10.3 mg/dL [facility] Blood 06/05/2022 3:22 PM CDT 06/05/2022 3:59 PM CDT us Champ Osborne MD PhD LAB BLOOD ORDERABLES Final Result Performing Organization Address [facility] Co de Phone Number [facility] [place] [address] * (ABNORMAL) Troponin I high-sensitivity (06/05/2022 3:21 PM CDT) Pathologist [facility] Trop I hs 4,261(C) <=35 ng/L [facility] Comment: Previous critical value noted within 48 hours ago. Interpretive Data For further hscTnI resources including the diagnostic algorithm and an aid in interpretation, copy and paste this link: https://bjhlab.testcatalog.org/show/[email or web address] Current Interpretive Data last revised 2020. Blood 06/05/2022 3:21 PM CDT 06/05/2022 3:59 PM CDT us Champ Osborne MD PhD LAB BLOOD ORDERABLES Final Result Performing Organization Address [facility] Co de Phone Number [facility] [place] [address] * (ABNORMAL) Arterial Blood gas w/Lactate POCT (06/05/2022 3:17 PM CDT) [facility] Lactate POC i-STAT 2.0 0.7 - 2.2 mmol/L [facility] pH POC 7.38 7.35 - 7.45 [facility] pCO2, Art POC 37 35 - 45 mmHg [facility] PO2 POC 53(L) 80 - 105 mmHg [facility] CO2, total POC 23 20 - 30 mmol/L [facility] HCO3, POC 22 21 - 30 mmol/L [facility] BE POC -3(L) -2 - 3 mmol/L [facility] O2 sat POC 86(L) 95 - 98 % [facility] Blood 06/05/2022 3:17 PM CDT 06/05/2022 3:17 PM CDT us Champ Osborne MD PhD LAB BLOOD ORDERABLES Final Result [facility] [place] [address] * XR Chest 1 View (06/05/2022 3:15 [...] [facility] Atrial Rate 73 BPM [facility] AR-Interval (MSEC) 184 ms [facility] QRS-Interval (MSEC) 106 ms [facility] QT-Interval (MSEC) 442 ms [facility] QTc 486 ms [facility] P [place] 49 degrees [facility] R [place] -33 degrees [facility] T [place] 87 degrees [facility] Diagnosis Normal sinus rhythm Left axis deviation QS in V1 and V2, a nonspecific finding with multiple causes, including lead misplacement or septal infarction in 20% Abnormal ECG Confirmed by JESS BUSTOS M.D ([id number]) on 06/07/2022 8:30:06 AM [facility] 06/05/2022 2:52 PM CDT 06/07/2022 8:30 AM CDT Champ Osborne MD PhD ECG ORDERABLES Final Resu lt Performing Organization Address City/[facility]/ZIP Co de Phone Number [facility] * (ABNORMAL) POCT glucose (06/05/2022 2:22 PM CDT) [facility] Glucose, POC 389(H) 70 - 199 mg/dL [facility] Blood 06/05/2022 2:22 PM CDT 06/05/2022 2:22 PM CDT Champ Osborne MD PhD LAB POCT ORDERABLES - APRIL CE Final Result Performing Organization Address [facility] Co de Phone Number [facility] [place] [address] * Respiratory pathogen panel Nasopharyngeal (06/05/2022 1:05 PM CDT) [facility] Influenza A RNA Not Detected Not Detected [facility] Influenza B RNA Not Detected Not Detected [facility] RSV RNA Not Detected Not Detected [facility] COVID-19 RNA Not Detected Not Detected [facility] Coronavirus 229E RNA Not Detected Not Detected [facility] Coronavirus HKU1 RNA Not Detected Not Detected [facility] Coronavirus NL63 RNA Not Detected Not Detected [facility] Coronavirus OC43 RNA Not Detected Not Detected [facility] Adenovirus DNA Not Detected Not Detected [facility] Metapneumovirus RNA Not Detected Not Detected [facility] Rhinovirus/Enterov irus RNA Not Detected Not Detected [facility] Parainfluenza 1 RNA Not Detected Not Detected [facility] Parainfluenza 2 RNA Not Detected Not Detected [facility] Parainfluenza 3 RNA Not Detected Not Detected [facility] Parainfluenza 4 RNA Not Detected Not Detected [facility] B. pertussis DNA Not Detected Not Detected [facility] B. parapertussis DNA Not Detected Not Detected [facility] C. pneumoniae DNA Not Detected Not Detected [facility] M. pneumoniae DNA Not Detected Not Detected [facility] Nasopharyngeal 06/05/2022 1: 05 PM CDT 06/05/2022 1:32 PM CDT Narrative [facility] - 06/05/2022 2:40 PM CDT Is the Patient experiencing symptoms consistent with COVID?->No Reason for testing?->Symptomatic Surveillance testing for transplant patient?->No ??Interpretive Data [employer] FilmArray Respiratory Panel (RP2.1) assay is a [...] assay has FDA clearance for testing of SUCTION ROLLER swabs. ??The performance of additional specimen types has been assessed by the performing laboratory. ??The performance characteristics of this assay have been determined by [facility] Molecular Infectious Disease Laboratory. Current interpretive data was last revised on 22. Champ Osborne MD PhD LAB MICROBIOLOGY - GENERAL ORDERABLES Final Result Performing Organization Address City/[facility]/ZIP Co de Phone Number [facility] [place] [address] * Lactate (06/05/2022 12:10 PM CDT) Lactate 2.0 0.7 - 2.0 mmol/L [facility] Blood 06/05/2022 12:1 0 PM CDT 06/05/2022 12:39 PM CDT Champ Osborne MD PhD LAB BLOOD ORDERABLES Final Result [facility] [place] [address] * Beta-hydroxybutyrate (06/05/2022 12:10 PM CDT) Beta-Hydroxybut yrate <0.1 0.0 - 0.5 mmol/L [facility] Blood 06/05/2022 12:1 0 PM CDT 06/05/2022 12:34 PM CDT Champ Osborne MD PhD LAB BLOOD ORDERABLES Final Result Performing Organization Address [facility] Co de Phone Number [facility] [place] [employer] [place] [address] * (ABNORMAL) POCT glucose (06/05/2022 11:23 AM CDT) Glucose, POC 402(H) 70 - 199 mg/dL [facility] Glucose comment 1 Glu2: RN/MD Notified [facility] Blood 06/05/2022 11:2 3 AM CDT 06/05/2022 11:23 AM CDT Champ Osborne MD PhD LAB POCT ORDERABLES - APRIL CE Final Result Performing Organization Address [facility] [place] [address] * aPTT (06/05/2022 11:04 AM CDT) aPTT 29 27 - 37 sec [facility] Comment: Interpretive Data Therapeutic heparin range: 60.0 - 94.0 seconds. Based on correlation with therapeutic heparin activity range of 0.3-0.7 Units/mL. Current interpretive data was last revised on 2020. Blood 06/05/2022 11:0 4 AM CDT 06/05/2022 12:39 PM CDT Champ Osborne MD PhD LAB BLOOD ORDERABLES Final Result Performing Organization Address City/[facility] Co de Phone Number [facility] [place] [employer] [place] [address] * (ABNORMAL) POCT glucose (06/05/2022 10:07 AM CDT) Glucose, POC 403(H) 70 - 199 mg/dL [facility] Blood 06/05/2022 10:0 7 AM CDT 06/05/2022 10:07 AM CDT Champ Osborne MD PhD LAB POCT ORDERABLES - APRIL CE Final Result Performing Organization Address [facility] Co de Phone Number [facility] [place] [address] * (ABNORMAL) POCT glucose (06/05/2022 8:47 AM CDT) Glucose, POC 398(H) 70 - 199 mg/dL [facility] Blood 06/05/2022 8:47 AM CDT 06/05/2022 8:47 AM CDT Champ Osborne MD PhD LAB POCT ORDERABLES - APRIL CE Final Result Performing Organization Address [facility] Co de Phone Number [facility] [place] [address] * (ABNORMAL) POCT glucose (06/05/2022 8:45 AM CDT) Glucose, POC 458(C) 70 - 199 mg/dL [facility] Glucose comment 1 Glu2: RN/MD Notified [facility] Blood 06/05/2022 8:45 AM CDT 06/05/2022 8:45 AM CDT Champ Osborne MD PhD LAB POCT ORDERABLES - APRIL CE Final Result Performing Organization Address [facility] [place] [address] * (ABNORMAL) POCT glucose (06/05/2022 6:33 AM CDT) Glucose, POC 373(H) 70 - 199 mg/dL [facility] Blood 06/05/2022 6:33 AM CDT 06/05/2022 6:33 AM CDT us Champ Osborne MD PhD LAB POCT ORDERABLES - APRIL CE Final Result Performing Organization Address [facility] Co de Phone Number [facility] [place] [address] * IR Outside Reference (06/05/2022 5:59 AM CDT) Impressions [facility] - 06/05/2022 5:59 AM CDT These images are for Reference purposes only and have not been reviewed by [facility]. ??There will be no report generated by a [facility] Radiologist. Narrative [facility] - 06/05/2022 5:59 AM CDT EXAMINATION: ??Images For Reference Purposes Only us Carrington Weber MD IMG IR PROCEDURES Final Result Performing Organization Address [facility] de Phone Number [email or web address] * XR Outside Reference (06/05/2022 5:57 AM CDT) Impressions [facility] - 06/05/2022 5:57 AM CDT These images are for Reference purposes only and have not been reviewed by [facility]. ??There will be no report generated by a [facility] Radiologist. Narrative [facility] - 06/05/2022 5:57 AM CDT EXAMINATION: ??Images For Reference Purposes Only us Carrington Weber MD IMG XR PROCEDURES Final Result Performing Organization Address [facility] Co de Phone Number [email or web address] * US Outside Reference (06/05/2022 5:56 AM CDT) Impressions [facility] - 06/05/2022 5:56 AM CDT These images are for Reference purposes only and have not been reviewed by [facility]. ??There will be no report generated by a [facility] Radiologist. Narrative [facility] - 06/05/2022 5:56 AM CDT EXAMINATION: ??Images For Reference Purposes Only Carrington Weber MD IMG US PROCEDURES Final Result Performing Organization Address City/[facility] Co de Phone Number [email or web address] * CT Body Outside Reference (06/05/2022 5:54 AM CDT) Impressions RAD_PACJerardo_MURALI - 06/05/2022 5:54 AM CDT These images are for Reference purposes only and have not been reviewed by [facility]. ??There will be no report generated by a [facility] Radiologist. Narrative [facility] - 06/05/2022 5:54 AM CDT EXAMINATION: ??Images For Reference Purposes Only Carrington Weber MD IMG CT PROCEDURES Final Result Performing Organization Address [facility] de Phone Number [email or web address] * (ABNORMAL) Troponin I high-sensitivity 2-hour (06/05/2022 4:27 AM CDT) Trop I hs 4,555(C) <=35 ng/L [facility] Comment: Previous critical value noted within 48 hours ago. Interpretive Data For further hscTnI resources including the diagnostic algorithm and an aid in interpretation, copy and paste this link: https://bjhlab.testcatalog.org/show/hsTrop-1 Current Interpretive Data last revised 2020. Trop I hs pct delta -1 % [facility] Trop I hs interp Insignificant [facility] Blood 06/05/2022 4:2 7 AM CDT 06/05/2022 5:21 AM CDT Champ Osborne MD PhD LAB BLOOD ORDERABLES Final Result Performing Organization Address [facility] de Phone Number [facility] [place] [address] * (ABNORMAL) aPTT (06/05/2022 4:27 AM CDT) aPTT 23(L) 27 - 37 sec [facility] Comment: Interpretive Data Therapeutic heparin range: 60.0 - 94.0 seconds. Based on correlation with therapeutic heparin activity range of 0.3-0.7 Units/mL. Current interpretive data was last revised on 2020. Blood 06/05/2022 4:27 AM CDT 06/05/2022 5:50 AM CDT Narrative [facility] - 06/05/2022 6:00 AM CDT Baseline prior to heparin initiation Champ Osborne MD PhD LAB BLOOD ORDERABLES Final Result Performing Organization Address City/[facility] Co de Phone Number [facility] [place] [address] * Protime-INR (06/05/2022 4:27 AM CDT) [facility] PT 10.1 9.2 - 13.5 sec [facility] INR 0.9 0.9 - 1.2 [facility] Comment: Interpretive data Oral anticoagulant therapeutic ranges: Venous thromboembolism prophylaxis or treatment: 2.0-3.0 CARDIOLOGY Standard range: 2.0-3.0 High-intensity range: 2.5-3.5 Refer to indication-specific guidelines for appropriate target ranges for prosthetic heart valve replacement. Current interpretive data was last revised on 2019. Blood 06/05/2022 4:27 AM CDT 06/05/2022 5:50 AM CDT [facility] - 06/05/2022 6:00 AM CDT Baseline prior to heparin initiation Champ Osborne MD PhD LAB BLOOD ORDERABLES Final Result Performing Organization Address [facility] Co de Phone Number [facility] [place] [address] * (ABNORMAL) Troponin I high-sensitivity series (baseline, 2hr, 4hr, 6hr) (06/05/2022 2:37 AM CDT) Pathologist [facility] Trop I hs 4,614(C) <=35 ng/L [facility] Comment: Previous critical value noted within 48 hours ago. Interpretive Data For further [facility] resources including the diagnostic algorithm and an aid in interpretation, copy and paste this link: https://bjhlab.testcatalog.org/show/[email or web address] Current Interpretive Data last revised 2020. Blood 06/05/2022 2:37 AM CDT 06/05/2022 3:30 AM CDT Champ Osborne MD PhD LAB BLOOD ORDERABLES Final Result Performing Organization Address City/[facility]/ZIP Co de Phone Number [facility] [place] [address] * POCT glucose (06/04/2022 11:04 PM CDT) [facility] Glucose, POC 191 70 - 199 mg/dL [facility] Blood 06/04/2022 11:0 4 PM CDT 06/04/2022 11:04 PM CDT us Champ Osborne MD PhD LAB POCT ORDERABLES - APRIL CE Final Result Performing Organization Address City/[facility]/ZIP Co de Phone Number [facility] [place] [address] * ECG 12 lead (06/04/2022 10:59 PM CDT) [facility] Ventricular Rate EKG/Min 47 BPM [facility] Atrial Rate 47 BPM [facility] AR-Interval (MSEC) 228 ms [facility] QRS-Interval (MSEC) 116 ms [facility] QT-Interval (MSEC) 532 ms [facility] QTc 470 ms [facility] P [place] 39 degrees [facility] R [place] -33 degrees [facility] T [place] 105 degrees [facility] Diagnosis Sinus bradycardia with [...] not Present Confirmed by KENN BILLINGSLEY M.D ([id number]) on 06/06/2022 9:57:10 PM [facility] 06/04/2022 10:5 9 PM CDT 06/06/2022 9:57 PM CDT Catherine Adams MD ECG ORDERABLES Final Resul t Performing Organization Address City/[facility]/ZIP Co de Phone Number [facility] * (ABNORMAL) Hemoglobin A1c (06/04/2022 10:52 PM CDT) Hgb A1C 7.8(H) 4.0 - 5.6 % [facility] Estimated Average Glucose 177 mg/dL [facility] Comment: The ADA recommends reporting an estimated Average Glucose (eAG) with all Hemoglobin A1c results using the equation derived from a study of 507 normal and diabetic adults. ??Minority populations were underrepresented and children were not included. ?? (Diabetes Care 2020; 43(S1): S66-S76). ??The eAG is not equivalent to a fasting glucose. Blood 06/04/2022 10:5 2 PM CDT 06/05/2022 Result [facility] Champ Osborne MD PhD LAB BLOOD ORDERABLES Final Result Performing Organization Address City/[facility] Co de Phone Number [facility] [place] [address] * Beta-hydroxybutyrate (06/04/2022 10:52 PM CDT) Pathologist [facility] Beta-Hydroxybut yrate <0.1 0.0 - 0.5 mmol/L [facility] Blood 06/04/2022 10:5 2 PM CDT 06/05/2022 Champ Osborne MD PhD LAB BLOOD ORDERABLES Final Result [facility] [place] [address] * (ABNORMAL) Lipid panel (06/04/2022 10:52 PM [...] revised on 2018. HDL 34(L) >=40 mg/dL [facility] Comment: Interpretive Data Ages < or [...] on 2018. LDL, calculated 82 <=129 mg/dL [facility] Comment: Interpretive Data Ages < [...] on 2018. Non-HDL Cholesterol 115 mg/dL [facility] Comment: Interpretive Data Ages < or = [...] on 2018. Chol/HDL ratio 4 [facility] Blood 06/04/2022 10:5 2 PM CDT 06/04/2022 11:56 PM CDT Champ Osborne MD PhD LAB BLOOD ORDERABLES Final Result Performing Organization Address [facility] Co de Phone Number [facility] [place] [employer] [address] * Critical result callback Cardio chemistry (06/04/2022 10:52 PM CDT) Date Notified [id number] [facility] Time Notified 99 [facility] Test name Trop [facility] Called/Read Back Denisse Connelly RN [facility] Credentials RN [facility] Called By dm [facility] Blood 06/04/2022 10:5 2 PM CDT 06/04/2022 11:56 PM CDT Catherine Adams MD LAB BLOOD ORDERABLES Final Result Performing Organization Address [facility] Co de Phone Number [facility] [place] [address] * (ABNORMAL) eGFR (06/04/2022 10:52 PM CDT) eGFR 6(L) 90 - 130 mL/min/1. 73 m2 [facility] Comment: Interpretive Data Reference Interval [...] Adams MD LAB BLOOD ORDERABLES Final Result [facility] [place] [address] * Differential, auto (06/04/2022 10:52 PM CDT) Neutrophil abs 6.1 1.7 - 6.5 K/cumm [facility] Imm gran abs 0.1 0.0 - 0.1 K/cumm [facility] Lymphocyte abs 0.8 0.8 - 3.3 K/cumm [facility] Monocyte abs 0.8 0.2 - 0.8 K/cumm [facility] Eosinophil abs 0.0 0.0 - 0.5 K/cumm [facility] Basophil abs 0.0 0.0 - 0.1 K/cumm [facility] Neutrophil pct 79.1 % [facility] Comment: Interpretive Data Percent cell count reference ranges are not reported, since discordance with absolute values may lead to misinterpretation of CBC data. Current Interpretive Data was last revised on 2017. Imm gran pct 0.6 % [facility] Comment: Interpretive Data Percent cell count reference ranges are not reported, since discordance with absolute values may lead to misinterpretation of CBC data. Current Interpretive Data was last revised on 2017. Lymphocyte pct 10.1 % [facility] Comment: Interpretive Data Percent cell count reference ranges are not reported, since discordance with absolute values may lead to misinterpretation of CBC data. Current Interpretive Data was last revised on 2017. Monocyte pct 10.2 % [facility] Comment: Interpretive Data Percent cell count reference ranges are not reported, since discordance with absolute values may lead to misinterpretation of CBC data. Current Interpretive Data was last revised on 2017. Eosinophil pct 0.0 % [facility] Comment: Interpretive Data Percent cell count reference ranges are not reported, since discordance with absolute values may lead to misinterpretation of CBC data. Current Interpretive Data was last revised on 2017. Basophil pct 0.0 % [facility] Comment: Interpretive Data Percent cell count reference ranges are not reported, since discordance with absolute values may lead to misinterpretation of CBC data. Current Interpretive Data was last revised on 2017. Blood 06/04/2022 10:5 2 PM CDT 06/04/2022 11:56 PM CDT us Catherine Adams MD LAB BLOOD ORDERABLES Final Result [facility] [place] [address] * (ABNORMAL) Troponin I high-sensitivity (06/04/2022 10:52 PM CDT) Trop I hs 4,797(C) <=35 ng/L [facility] Comment: Interpretive Data For further hscTnI resources including the diagnostic algorithm and an aid in interpretation, copy and paste this link: https://bjhlab.testcatalog.org/show/[email or web address] Current Interpretive Data last revised 2020. Blood 06/04/2022 10:5 2 PM CDT 06/04/2022 11:56 PM CDT us Catherine Adams MD LAB BLOOD ORDERABLES Final Result [facility] [place] [address] * (ABNORMAL) Pro B-type natriuretic peptide (06/04/2022 [...] Adams MD LAB BLOOD ORDERABLES Final Result [facility] [place] [address] * (ABNORMAL) CBC with auto differential (06/04/2022 10:52 PM CDT) Pathologist [facility] WBC 7.7 3.8 - 9.9 K/cumm [facility] Hgb 9.5(L) 13.0 - 17.5 g/dL [facility] Hct 27.2(L) 38.9 - 50.3 % [facility] Plt 195 150 - 400 K/cumm [facility] MPV 11.3 9.1 - 12.3 fL [facility] RBC 3.10(L) 4.30 - 5.80 M/cumm [facility] MCV 87.7 81.3 - 96.4 fL [facility] MCH 30.6 27.1 - 33.3 pg [facility] MCHC 34.9 32.3 - 35.7 g/dL [facility] RDW CV 12.5 11.1 - 14.9 % [facility] RDW SD 40.2 35.7 - 48.1 fL [facility] NRBC abs 0.00 0.00 - 0.01 K/cumm [facility] Blood 06/04/2022 10:5 2 PM CDT 06/04/2022 11:56 PM CDT us Catherine Adams MD LAB BLOOD ORDERABLES Final Result [facility] [place] [address] * (ABNORMAL) Comprehensive metabolic panel (06/04/2022 10:52 PM CDT) Sodium 129(L) 135 - 145 mmol/L [facility] Potassium, pl 4.0 3.3 - 4.9 mmol/L [facility] Chloride 88(L) 97 - 110 mmol/L [facility] CO2 24 22 - 32 mmol/L [facility] Anion gap 17(H) 2 - 15 mmol/L [facility] BUN 82(H) 8 - 25 mg/dL [facility] Creatinine 8.95(H) 0.80 - 1.30 mg/dL [facility] Glucose 185 70 - 199 mg/dL [facility] Comment: Interpretive Data Fasting glucose [...] Calcium 8.6 8.5 - 10.3 mg/dL [facility] Bilirubin, total 0.5 0.1 - 1.2 mg/dL [facility] Protein, pl 6.5 6.5 - 8.5 g/dL [facility] Albumin 3.6 3.5 - 5.0 g/dL [facility] Alk phos 115 40 - 130 Units/L [facility] ALT 37 7 - 55 Units/L [facility] AST 53(H) 10 - 50 Units/L [facility] Blood 06/04/2022 10:5 2 PM CDT 06/04/2022 11:56 PM CDT Catherine Adams MD LAB BLOOD ORDERABLES Final Result [facility] [place] [address] * XR Chest 1 View (06/04/2022 10:50 [...] Diagnosis Diagnosis unknown 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, unspecified vessel or [...] Coronary atherosclerosis of unspecified type of vessel, white [place] or graft Unstable angina (CMS/HCC) (HCC) Intermediate [...] Mon06/22/22 at 1930 Given 06/27/2022 5:47 PM [facility] 1,000 mg albuterol HFA (PROVENTIL HFA,VENTOLIN HFA,PROAIR HFA) 90 mcg/actuation inhaler 2 puff 2 puff, inhalation, Every 6 hours PRN (foreign correspondent), wheezing, shortness of breath, Starting on Mon06/05/22 at 0229 Given 06/15/2022 2:50 AM CDT 2 puffs aspirin chewable tablet 81 mg 81 mg, oral, Daily, First dose (after last modification) on Gregoria 06/23/22 at 0900 Given 06/29/2022 8:23 AM [facility] 81 mg Given 06/28/2022 8:56 AM [facility] 81 mg Given 06/27/2022 8:17 AM [facility] 81 mg atorvastatin (LIPITOR) tablet 80 mg 80 mg, oral, Daily, First dose (after last modification) on Gregoria 06/23/22 at 0900 Given 06/29/2022 8:23 AM [facility] 80 mg Given 06/28/2022 8:56 AM [facility] 80 mg Given 06/27/2022 8:18 AM [facility] 80 mg calcitRIOL (ROCALTROL) capsule 0.25 mcg 0.25 mcg, oral, Daily, First dose on Mon06/22/22 at 1000 Given 06/29/2022 8:23 AM [facility] 0.25 mcg Given 06/28/2022 8:56 AM [facility] 0.25 mcg Given 06/27/2022 8:17 AM [facility] 0.25 mcg calcium acetate(phosphat bind) (PHOSLO) capsule 667 mg 667 mg, oral, 4 times daily, First dose on 06/05/22 at 0800, Take with food Given 06/29/2022 12:34 PM [facility] 667 mg Given 06/29/2022 8:23 AM [facility] 667 mg Given 06/28/2022 9:00 PM [facility] 667 mg clopidogreL (PLAVIX) tablet 75 mg 75 mg, oral, Daily, First dose (after last modification) on Gregoria 06/23/22 at 0900 Given 06/29/2022 8:23 AM [facility] 75 mg Given 06/28/2022 8:56 AM [facility] 75 mg Given 06/27/2022 8:18 AM [facility] 75 mg dextrose (D10W) 10% bolus 250 [...] 06/23/22 at 0900 Given 06/29/2022 8:23 AM [facility] 10 mg Given 06/28/2022 8:56 AM [facility] 10 mg Given 06/27/2022 8:18 AM [facility] 10 mg fentaNYL (SUBLIMAZE) preservative free injection [...] Infection ProphylaxisIndications:Infection Prophylaxis Given 06/28/2022 8:05 PM [facility] glucagon injection 1 mg 1 mg, intramuscular, [...] Vein Thrombosis Prevention Given 06/29/2022 12:34 PM [facility] 5,000 Units Left Lower Abdomen Given 06/29/2022 5:01 AM [facility] 5,000 Units L eft Lower Abdomen Given 06/28/2022 9:00 PM [facility] 5,000 Units L eft Upper Abdomen heparin [...] Self Administered Via Pump 06/29/2022 12:34 PM [facility] 8 Units Left Lower Abdomen Self Administered Via Pump 06/29/2022 8:27 AM [facility] 7 Units Left Lower Abdomen Self Administered Via Pump 06/28/2022 5:55 PM [facility] 4.3 Unit s Left Lower Abdomen ioversoL [...] otherwise manipulate tablet/capsule. Given 06/29/2022 8:22 AM [facility] 30 m g Given 06/28/2022 8:56 AM [facility] 30 mg Given 06/27/2022 8:18 AM [facility] 30 mg lidocaine (LIDODERM) 5 % patch 1 patch 1 patch, transdermal, Administer over 12 Hours, Daily PRN, 2nd line for pain, Starting on 06/05/22 at 0413, Do not cover the holes on the top side of the patch., Apply to affected area: back losartan (COZAAR) tablet 12.5 mg 12.5 mg, oral, Daily, First dose on 06/25/22 at 0900 Given 06/29/2022 8:22 AM [facility] 12.5 mg Given 06/28/2022 8:56 AM [facility] 12.5 mg Given 06/27/2022 8:17 AM [facility] 12.5 mg metoprolol tartrate (LOPRESSOR) immediate release tablet 25 mg 25 mg, oral, 2 times daily, First dose (after last modification) on 06/27/22 at 0900 Given 06/29/2022 8:22 AM [facility] 25 mg Given 06/28/2022 9:00 PM [facility] 25 mg Given 06/28/2022 8:56 AM [facility] 25 mg midazolam (VERSED) 1 mg/mL preservative [...] GI BleedIndications:GI Bleed Given 06/29/2022 8:22 AM [facility] 40 mg Given 06/28/2022 8:56 AM [facility] 40 mg Given 06/27/2022 8:18 AM [facility] 40 mg phenylephrine (JONN-SYNEPHRINE) 0.5 mg/5 mL [...] 06/16/22 at 2100 Given 06/29/2022 12:34 PM [facility] 1 drop Given 06/29/2022 8:22 AM [facility] 1 drop Given 06/28/2022 9:01 PM [facility] 1 drop ramelteon (ROZEREM) tablet 8 mg [...] Recently Administered Medications Times are shown in [facility]. 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
--- OUTSIDE RECORDS SUMMARY | 2024-09-07 19:23 | XMS_ITS | Encounter Summary ---
Author Organization [facility] Address [address] [facility] [address] [place] [id number] Care Team Providers Care Grave Digger Name Role Phone Aditya Castro MD Primary Care Provider [phone] Encounter Details Date Type Department Care Team (Late st Contact Info) Description 01/31/2020 Orders Only [facility] Cardiology [address] [facility] [address] [id number] Abelardo Petit MD [address] [facility] [address] [place] [address] Social History Tobacco Use Types Packs/Day Years Used Date Smoking Tobacco: Never Smokeless Tobacco: Former Alcohol Use Standard Drinks/Week Comments No 0 (1 standard drink = 0.6 oz pur e alcohol) Sex and Gender Information Value Date Recorded Sex Assigned at Not on file Legal Sex Male 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
--- OUTSIDE RECORDS SUMMARY | 2024-09-07 19:23 | XMS_ITS | Encounter Summary ---
Author Organization [facility] Address [address] [facility] [address] [place] [address] Care Team Providers Care Superintendent Landfill Operations Name Role Phone Aditya Castro MD Primary Care Provider [phone] Encounter Details Date Type Department Care Team (Late st Contact Info) Description 12/09/2021 Orders Only [facility] Cardiology [address] [facility] 162 [facility] [address] [place] [address] Abelardo Petit MD [address] [facility] [address] [place] [address] Social History Tobacco Use Types [...] on file Legal Sex Male 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
--- OUTSIDE RECORDS SUMMARY | 2024-09-07 19:24 | XMS_ITS | Encounter Summary ---
Author Organization [facility] Healthcare Address [address] [place] [address] Care Team Providers Care Lime Sludge Mixer Name Role Phone Jhonatan Bellamy MD Primary Care Provider [phone] Encounter Details Date Type Department Care Team (Latest Contact Info) Description 09/26/2017 11:05 AM YEAST CULTURE DEVELOPER - 09/26/2017 2:33 PM [facility] Hospital Encounter [facility] OP INTERIM [phone] Corine Arriaga MD [address] [place] [address] Discharge Disposition: Discharge to home or self care Social History Tobacco Use Types Packs/Day Years Used Date Smoking Tobacco: Never Smokeless Tobacco: Former Alcohol Use Standard Drinks/Week Comments No 0 (1 standard drink = 0.6 oz pur e alcohol) Sex and Gender Information Value Date Recorded Sex Assigned at Not on file Legal Sex Male 3:42 AM YEAST CULTURE DEVELOPER Gender Identity Not on file Sexual Orientation Not on file documented as of this encounter Medications at Time of Discharge aspirin 81 mg enteric coated tabletIndications: Myocardial Reinfarction Prevention Take 1 tablet (81 mg total) by mouth daily 11/07/2013 nitroglycerin (NITROSTAT) 0.4 mg SL tabletIndications: Coronary artery disease involving la posta coronary artery of la posta heart, angina presence unspecified Place 1 tablet [...] MD Zev - 09/26/2017 12:00 AM CST [facility] Patient: JUVENAL GARVIN Account: [id number] Room No: : 1970 Proc. Date: 09/26/2017 [...] Ring and implantation of +21 diopter Tecnis [id number] lens left eye. DESCRIPTION OF THE PROCEDURE [...] visually verifying that the 21 diopter Tecnis [id number] lens was the correct lens for this [...] Corine Arriaga MD On 09/26/2017 03:36 PM YEAST CULTURE DEVELOPER Dorys RUBIO/ro TD: 09/26/2017 15:09 documented in this encounter Plan of Treatment Not on file documented as of this encounter Procedures Procedure Name Priority Date/Time Associated Diagnosis Comments GLUCOSE POC Routine 09/26/2017 1:24 PM YEAST CULTURE DEVELOPER GLUCOSE POC Routine 09/26/2017 11:45 AM YEAST CULTURE DEVELOPER DISCHARGE LABORATORY CUMULATIVE REPORT 09/26/2017 12:00 AM YEAST CULTURE DEVELOPER documented in this encounter Results * Glucose POC (09/26/2017 1:24 PM YEAST CULTURE DEVELOPER) Glucose, POC 121 70 - 199 mg/dL ALESSANDRA COLE Comment: Interpretive Data Glucose is assumed to be non-fasting. Fasting Glucose reference ranges are: 0 - 150 years: ??70 mg/dL - 99 mg/dL Current interpretive data was last revised on 2014. Blood specimen (specimen) 09/26/2017 1:24 PM YEAST CULTURE DEVELOPER 09/26/2017 1:24 PM YEAST CULTURE DEVELOPER Narrative ALESSANDRA COLE - 09/26/2017 1:38 PM YEAST CULTURE DEVELOPER us Corine Arriaga MD POINT OF CARE TEST ORDERABLES Final Result Performing Organization Address City/State/[facility] Co de Phone Number [facility] [address] [facility] Department [place] [address] * Glucose POC (09/26/2017 11:45 AM YEAST CULTURE DEVELOPER) Glucose, POC 130 70 - 199 mg/dL ALESSANDRA COLE Comment: Interpretive Data Glucose is assumed to be non-fasting. Fasting Glucose reference ranges are: 0 - 150 years: ??70 mg/dL - 99 mg/dL Current interpretive data was last revised on 2014. Blood specimen (specimen) 09/26/2017 11:45 AM YEAST CULTURE DEVELOPER 09/26/2017 11:45 AM YEAST CULTURE DEVELOPER Narrative ALESSANDRA BJWCH - 09/26/2017 11:50 AM YEAST CULTURE DEVELOPER us Corine Arriaga MD POINT OF CARE TEST ORDERABLES Final Result ALESSANDRA BJWCH [id number] [facility]. Department [place] [address] * DISCHARGE LABORATORY CUMULATIVE REPORT (09/26/2017 12:00 AM YEAST CULTURE DEVELOPER) Narrative 09/26/2017 12:00 AM YEAST CULTURE DEVELOPER Ordered by an unspecified provider. us Historical Provider LAB BLOOD ORDERABLES Ann Marie l Result documented in this encounter Visit Diagnoses Not on filedocumented in this encounter Care Teams Lime Sludge Mixer Relationship Specialty Start Date End Date Jhonatan Bellamy MD [address] [place], [place] [id number] PCP - General 03/25/15 04/16/18 documented as of this encounter
--- OUTSIDE RECORDS SUMMARY | 2024-09-07 19:24 | XMS_ITS | Encounter Summary ---
Author Organization [facility] Address [address] [address] Care Team Providers Care Trade Show Coordinator Name Role Phone Jhonatan Bellamy MD Primary Care Provider [phone]- [phone] Encounter Details Date Type Department Care Team (Late st Contact Info) Description 02/16/2018 Telephone [facility] [address] [address] Abelardo Petit MD [address] [facility] [address] [address] Social History Tobacco Use Types Packs/Day Years Used Date Smoking Tobacco: Never Smokeless Tobacco: Former Alcohol Use Standard Drinks/Week Comments No 0 (1 standard drink = 0.6 oz pur e alcohol) Sex and Gender Information Value Date Recorded Sex Assigned at Not on file Legal 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 * Telephone Encounter - Amberly Rader - 02/16/2018 9:23 AM CDT Myrna from [facility] called for an ICD 10 code for plavix. [phone] documented in this encounter Plan of Treatment Not on file documented as of this encounter Visit Diagnoses Not on filedocumented in this encounter Care Teams Trade Show Coordinator Relationship Specialty Start Date End Date Jhonatan Bellamy MD [address] [place], [place] [id number] PCP - General 03/25/15 04/16/18 documented as of this encounter
--- OUTSIDE RECORDS SUMMARY | 2024-09-07 19:24 | XMS_ITS | Encounter Summary ---
Author Organization [facility] Address [address] [address] Care Team Providers Care Front Load Trash Truck Driver Name Role Phone Jhonatan Bellamy MD Primary Care Provider [phone]- [phone] Encounter Details Date Type Department Care Team (Late st Contact Info) Description 10/02/2017 Telephone [facility] [address] [address] Abelardo Petit MD 68[address] [facility] [address] [address] Social History Tobacco Use Types Packs/Day Years Used Date Smoking Tobacco: Never Smokeless Tobacco: Former Alcohol Use Standard Drinks/Week Comments No 0 (1 standard drink = 0.6 oz pur e alcohol) Sex and Gender Information Value Date Recorded Sex Assigned at Not on file Legal Sex Male 3:42 AM SALES ENABLEMENT MANAGER Gender Identity Not on file Sexual Orientation Not on file documented as of this encounter Miscellaneous Notes * Telephone Encounter - Lisa Diaz RN - 10/02/2017 4:49 PM CST Pt said he will come by tomorrow to pick up truck driver the note to take to HR so he can return to work with norestrictions. S ENABLEMENT MANAGER * Telephone Encounter - Lissy Schneider MA - 10/02/2017 4:33 PM CST Spoke pt. Pt states that he spoke with Robin. Pt states that he would return to work on 10/10/17 and would like a call back from Robin. Pt would like note to say that he can return to work at full duty. S ENABLEMENT MANAGER documented in this encounter Plan of Treatment Not on file documented as of this encounter Visit Diagnoses Not on filedocumented in this encounter Care Teams Front Load Trash Truck Driver Relationship Specialty Start Date End Date Jhonatan Bellamy MD [address] [place] [address] PCP - General 03/25/15 04/16/18 documented as of this encounter
--- OUTSIDE RECORDS SUMMARY | 2024-09-07 19:24 | XMS_ITS | Encounter Summary ---
Author Organization [facility] Address [address] [place] [address] Phone Care Team Providers Care Hand Mounter Name Role Phone Jhonatan Bellamy MD Primary Care Provider +1- [phone] Reason for Visit * Reason Onset Date Comments Prior Auth 02/19/2018 uloric 40mg once daily Encounter Details Date Type Department Care Team (Late st Contact Info) Description 02/19/[address] 5[address] [place] [address] [place] [address] Martha Duckworth Prior Auth (uloric 40mg once daily) Social History Tobacco Use Types Packs/Day Years Used Date Smoking Tobacco: Never Smokeless Tobacco: Former Alcohol Use Standard Drinks/Week Comments No 0 (1 standard drink = 0.6 oz pur e alcohol) Sex and Gender Information Value Date Recorded Sex Assigned at Not on file Legal Sex Male 3:42 AM MANAGER LSW Gender Identity Not on file Sexual Orientation Not on file documented as of this encounter Miscellaneous Notes * Telephone Encounter - Josselin Meyers BS - 02/26/2018 9:17 AM CDT MEDICATION PRIOR AUTHORIZATION FORM Date: 02/26/18 Patient Name: Juvenal Daigle : 1970 PROVIDER: NAVARRO PELLETIER PRIMARY DIAGNOSIS: CHRONIC GOUT ICD-10 CODE: [id number] RX BENEFIT NUTRITIONALIST: DIANE HEARN ID#: [id number] CUSTOMER SERVICE PH#: FAX#: DRUG INFORMATION: ULORIC 40mg TABLETS Requested Prescriptions No prescriptions requested or ordered in this encounter CAN THIS DRUG BE FILLED AT ANY PHARMACY?: DOES THIS DRUG REQUIRE THE USE OF A SPECIALTY PHARMACY?: PHARMACY NAME: PHONE#: FAX#: AUTH#: [id number] EFFECTIVE: 02/20/2018 EXPIRES: 05/20/2018 NOTES: Lisa JACKSON: [...] filedocumented in this encounter Care Teams Hand Mounter Relationship Specialty Start Date End Date hJonatan Bellamy MD [address] [place] [address] PCP - General 03/25/15 04/16/18 documented as of this encounter
--- OUTSIDE RECORDS SUMMARY | 2024-09-07 19:24 | XMS_ITS | Encounter Summary ---
Author Organization [facility] Address [address] [address] Care Team Providers Care Finishing Range Supervisor Name Role Phone Jhonatan Bellamy MD Primary Care Provider +1- [phone] Encounter Details Date Type Department Care Team (Late st Contact Info) Description 05/26/2017 Telephone [facility] [address] [address] Abelardo Petit MD 68[address] [facility] [address] [address] Social History Tobacco Use Types Packs/Day Years Used Date Smoking Tobacco: Never Smokeless Tobacco: Former Alcohol Use Standard Drinks/Week Comments No 0 (1 standard drink = 0.6 oz pur e alcohol) Sex and Gender Information Value Date Recorded Sex Assigned at Not on file 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 documented in this encounter Plan of Treatment Not on file documented as of this encounter Visit Diagnoses Not on filedocumented in this encounter Care Teams Finishing Range Supervisor Relationship Specialty Start Date End Date Jhonatan Bellamy MD [address] [place] [address] PCP - General 03/25/15 04/16/18 documented as of this encounter
--- OUTSIDE RECORDS SUMMARY | 2024-09-07 19:24 | XMS_ITS | Encounter Summary ---
Author Organization [facility] Address [address] [facility] [address] [place] [address] Care Team Providers Care Cargo Router Name Role Phone Jhonatan Bellamy MD Primary Care Provider +1- [phone] Encounter Details Date Type Department Care Team (Late st Contact Info) Description 06/13/2017 Telephone [facility] [address] [address] Abelardo Petit MD 6810 [facility] [address] [address] Social History Tobacco Use Types Packs/Day Years Used Date Smoking Tobacco: Never Smokeless Tobacco: Former Alcohol Use Standard Drinks/Week Comments No 0 (1 standard drink = 0.6 oz pur e alcohol) Sex and Gender Information Value Date Recorded Sex Assigned at Not on file Legal 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
--- OUTSIDE RECORDS SUMMARY | 2024-09-07 19:24 | XMS_ITS | Encounter Summary ---
Author Organization [facility] Address [address] [address] Care Team Providers Care Blunger Name Role Phone Jhonatan Bellamy MD Primary Care Provider +1- [phone] Encounter Details Date Type Department Care Team (Late st Contact Info) Description 08/11/2017 Telephone [facility] [address] [address] Abelardo Petit MD 6810 [facility] [address] [address] Social History Tobacco Use Types Packs/Day Years Used Date Smoking Tobacco: Never Smokeless Tobacco: Former Alcohol Use Standard Drinks/Week Comments No 0 (1 standard drink = 0.6 oz pur e alcohol) Sex and Gender Information Value Date Recorded Sex Assigned at Not on file Legal Sex Male 3:42 AM LAYER UP Gender Identity Not on file Sexual Orientation Not on file documented as of this encounter Miscellaneous Notes * Telephone Encounter - Lisa Diaz RN - 08/11/2017 9:12 AM CST Noted R UP documented in this encounter Plan of Treatment Not on file documented as of this encounter Visit Diagnoses Not on filedocumented in this encounter Care Teams Blunger Relationship Specialty Start Date End Date Jhonatan Bellamy MD [address] [place] [address] PCP - General 03/25/15 04/16/18 documented as of this encounter
--- OUTSIDE RECORDS SUMMARY | 2024-09-07 19:24 | XMS_ITS | Encounter Summary ---
Author Organization [facility] Address [address] [address] Care Team Providers Care Poultry Eviscerator Name Role Phone Jhonatan Bellamy MD Primary Care Provider +1- [phone] Encounter Details Date Type Department Care Team (Late st Contact Info) Description 08/07/2017 Telephone [facility] [address] [address] Abelardo Petit MD 6810 [facility] [address] [address] Social History Tobacco Use Types Packs/Day Years Used Date Smoking Tobacco: Never Smokeless Tobacco: Former Alcohol Use Standard Drinks/Week Comments No 0 (1 standard drink = 0.6 oz pur e alcohol) Sex and Gender Information Value Date Recorded Sex Assigned at Not on file Legal Sex Male 3:42 AM LAW ENFORCEMENT DIRECTOR Gender Identity Not on file Sexual Orientation Not on file documented as of this encounter Miscellaneous Notes * Telephone Encounter - Lisa Diaz RN - 08/07/2017 5:[address] Petit will sign the note pt requested tomorrow. Will call patient when it's ready. ENFORCEMENT DIRECTOR * Telephone Encounter - Lisa Diaz RN - 08/07/2017 3:55 PM CST Pt needs note stating that he has been under the care of Dr Petit. He had an OR and subsequent stent placement and has been unable to work since March. Will check with Dr Petit. He needs something for the rn discharge because he has a court date on August. ENFORCEMENT DIRECTOR * Telephone Encounter - Lisa Diaz RN - 08/07/2017 3:07 PM CST Called pt, told him that Disability paperwork has been faxed and confirmation received. LMOM ENFORCEMENT DIRECTOR * Telephone Encounter - Lisa Diaz RN - 08/07/2017 1:34 PM CST Pt said he's having cataract surgery Next week. He needs clearance for the surgery. Will check withdr Petit . Pt did not go back to work last week because they want him to complete ADA paperworkfirst and he has not received it. ENFORCEMENT DIRECTOR * Telephone Encounter - Elsie Holly RN - 08/07/2017 12:33 PM LAW ENFORCEMENT DIRECTOR I did not receive any forms on Monday. ENFORCEMENT DIRECTOR * Telephone Encounter - Lisa Diaz RN - 08/07/2017 12:02 PM CST Pt said he dropped off forms on Monday for his short term disability. Told pt I don not have those forms, will check with the nurse that was here on Monday. ENFORCEMENT DIRECTOR documented in this encounter Plan of Treatment Not on file documented as of this encounter Visit Diagnoses Not on filedocumented in this encounter Care Teams Poultry Eviscerator Relationship Specialty Start Date End Date Jhonatan Bellamy MD [address] [place] [place] [address] PCP - General 03/25/15 04/16/18 documented as of this encounter
--- OUTSIDE RECORDS SUMMARY | 2024-09-07 19:24 | XMS_ITS | Encounter Summary ---
Author Organization [facility] Address [address] [facility] [address] [place] [address] Care Team Providers Care Bi Manager Name Role Phone Jhonatan Bellamy MD Primary Care Provider [phone]- [phone] Reason for Visit * Reason Comments Hospital Follow Up sob/chf Encounter Details Date Type Department Care Team (Late st Contact Info) Description 07/19/2017 10:15 AM SENIOR FRONT END ENGINEER Office Visit [facility] [address] [address] Abelardo Petit MD 6810 [facility] [address] [address] History of coronary artery stent placement (Primary Dx); 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[place] artery of [place] heart with stable angina pectoris (CMS/HCC) Social History Tobacco Use Types Packs/Day Years Used Date Smoking Tobacco: Never Smokeless Tobacco: Former Alcohol Use Standard Drinks/Week Comments No 0 (1 standard drink = 0.6 oz pur e alcohol) Sex and Gender Information Value Date Recorded Sex Assigned at Not on file Legal Sex Male 3:42 AM SENIOR FRONT END ENGINEER Gender Identity Not on file Sexual Orientation Not on file documented as of this encounter Last Filed Vital Signs Vital Sign Reading Time Taken Comments Blood Pressure 156/64 07/19/2017 10:34 AM SENIOR FRONT END ENGINEER Pulse 69 07/19/2017 10:34 AM SENIOR FRONT END ENGINEER Temperature - - Respiratory Rate - - Oxygen Saturation 98% 07/19/2017 10:34 AM SENIOR FRONT END ENGINEER Inhaled Oxygen Concentration - - Weight 116.6 kg (257 lb) 07/19/2017 10:34 AM SENIOR FRONT END ENGINEER Height 177.8 cm (5' 10 ) 07/19/2017 10:34 AM SENIOR FRONT END ENGINEER Body Mass Index 36.88 07/19/2017 10:34 AM SENIOR FRONT END ENGINEER documented in this encounter Progress Notes * [...] enzyme evidence of a non ST elevation [place]. He underwent catheterization and was found to have a high-grade stenosis in the distal right coronary artery bridging over the origin of his special officer automat lateral branch. He also has diffuse non flow limiting disease elsewhere. There shimon 80% ostial stenosis of a very small 1st marginal branch of his circumflex which is being treatedmedically. The patient's other comorbidities include hypertension advanced chronic kidney disease and longstanding diabetes. He has significant anemia of chronic disease as well. The patient was rehospitalized at [facility] in April of 2017 with some dyspnea [...] again hospitalized for about a week at [place] with symptomatic shortness of breath and was [...] requires manual exertion. He works for the [employer] at [place] and we need to contact them and [...] artery stent placement 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[place] artery of [place] heart with stable angina pectoris (CMS/HCC) PLAN/RECOMMENDATIONS No change in cardiovascular regimen Continues to follow up closely with his financial services auditor in terms of his renal insufficiency and diuretic management Will have to contact his employer to find out if he has options that do not require significant manual exertion. Abelardo Petit MD OR FRONT END ENGINEER documented in this encounter Plan of Treatment Not on file documented as of this encounter Visit Diagnoses Diagnosis History of coronary artery stent placement- Primary 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[place] artery of [place] heart with stable angina pectoris (HCC) documented [...] 01/20/2021 added in this encounter Care Teams Bi Manager Relationship Specialty Start Date End Date Jhonatan [place] [address] PCP - General 03/25/15 04/16/18 documented as of this encounter
--- OUTSIDE RECORDS SUMMARY | 2024-09-07 19:24 | XMS_ITS | Encounter Summary ---
Author Organization [facility] Healthcare Address [address] [place] [address] Care Team Providers Care Information Systems Professor Name Role Phone Aditya Castro MD Primary Care Provider [phone] Encounter Details Date Type Department Care Team (Latest Contact Info) Description 10/23/2019 9:45 AM PERIODONTIST - 10/23/2019 3:32 PM PERIODONTIST Hospital Encounter [facility] OP INTERIM Saulo Dockery MD [address] [place] [address] Discharge Disposition: Discharge to home or self care Social History Tobacco Use Types Packs/Day Years Used Date Smoking Tobacco: Never Smokeless Tobacco: Former Alcohol Use Standard Drinks/Week Comments No 0 (1 standard drink = 0.6 oz pur e alcohol) Sex and Gender Information Value Date Recorded Sex Assigned at Not on file Legal Sex Male 3:42 AM PERIODONTIST Gender Identity Not on file Sexual Orientation Not on file documented as of this encounter Last Filed Vital Signs Vital Sign Reading Time Taken Comments Blood Pressure 159/70 10/23/2019 9:54 AM PERIODONTIST Pulse 55 10/23/2019 9:54 AM PERIODONTIST Temperature 36.6 ??C (97.8 ??F) 10/23/2019 9:54 AM CS T Respiratory Rate - - Oxygen Saturation 96% 10/23/2019 9:54 AM PERIODONTIST Inhaled Oxygen Concentration - - Weight 121.3 kg (267 lb 8 oz) 10/23/2019 9:54 AM PERIODONTIST Height 177.8 cm (5' 10 ) 10/23/2019 9:54 AM PERIODONTIST Body Mass Index 38.38 10/23/2019 9:54 AM PERIODONTIST documented in this encounter Medications at Time [...] on filedocumented in this encounter Care Teams Information Systems Professor Relationship Specialty Start Date End Date Aditya Castro MD [address] [facility] [place] [address] PCP - General 10/17/19 documented as of this encounter
--- OUTSIDE RECORDS SUMMARY | 2024-09-07 19:24 | XMS_ITS | Encounter Summary ---
Author Organization [facility] Address [address] [address] Care Team Providers Care Library Attendant Name Role Phone Jhonatan Bellamy MD Primary Care Provider +1- [phone] Encounter Details Date Type Department Care Team (Late st Contact Info) Description 07/04/2017 Telephone [facility] [address] [address] Abelardo Petit MD 6810 [facility] [address] [address] Social History Tobacco Use Types Packs/Day Years Used Date Smoking Tobacco: Never Smokeless Tobacco: Former Alcohol Use Standard Drinks/Week Comments No 0 (1 standard drink = 0.6 oz pur e alcohol) Sex and Gender Information Value Date Recorded Sex Assigned at Not on file Legal Sex Male 3:42 AM PLANNING MANAGER Gender Identity Not on file Sexual Orientation Not on file documented as of this encounter Miscellaneous Notes * Telephone Encounter - Lisa Diaz RN - 07/04/2017 1:59 PM CST LMOM called , just faxed and scanned disability paperwork. NING MANAGER documented in this encounter Plan of Treatment Not on file documented as of this encounter Visit Diagnoses Not on filedocumented in this encounter Care Teams Library Attendant Relationship Specialty Start Date End Date Malench, Jhonatan E., MD [address] [place] [address] PCP - General 03/25/15 04/16/18 documented as of this encounter
--- OUTSIDE RECORDS SUMMARY | 2024-09-07 19:24 | XMS_ITS | Encounter Summary ---
Author Organization [facility] Address [address] [address] Care Team Providers Care Precinct I Police Sergeant Name Role Phone Jhonatan Bellamy MD Primary Care Provider +1- [phone] Encounter Details Date Type Department Care Team (Late st Contact Info) Description 05/25/2017 Telephone [facility] [address] [address] Abelardo Petit MD 6810 [facility] [address] [address] Social History Tobacco Use Types Packs/Day Years Used Date Smoking Tobacco: Never Smokeless Tobacco: Former Alcohol Use Standard Drinks/Week Comments No 0 (1 standard drink = 0.6 oz pur e alcohol) Sex and Gender Information Value Date Recorded Sex Assigned at Not on file 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 Claim number [id number]. Also pt needs note re FMLA (incident [id number]) stating pt's leave is extended to Jun. Fax [phone] Attention Marcelino Brock Told pt I will send the requested information today or tomorrow. documented in this encounter Plan of Treatment Not on file documented as of this encounter Visit Diagnoses Not on filedocumented in this encounter Care Teams Precinct I Police Sergeant Relationship Specialty Start Date End Date Jhonatan Bellamy MD [address] [place] [address] PCP - General 03/25/15 04/16/18 documented as of this encounter
--- OUTSIDE RECORDS SUMMARY | 2024-09-07 19:24 | XMS_ITS | Encounter Summary ---
Author Organization [facility] Address [address] [place] [address] Phone Care Team Providers Care Lens Matcher Name Role Phone Jhonatan Bellamy MD Primary Care Provider +1- [phone] Encounter Details Date Type Department Care Team (Late st Contact Info) Description 04/03/2018 Telephone [facility] Rheumatology [address] 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 takes his insurance as we discussed. [...] aware). We have sent a message to [facility] if we can get his medication approved. He said he has been having a lot of pain due to his lackof medication. documented in this encounter Plan of Treatment Not on file documented as of this encounter Visit Diagnoses Not on filedocumented in this encounter Care Teams Lens Matcher Relationship Specialty Start Date End Date Jhonatan Bellamy MD [address] [place] [address] PCP - General 03/25/15 04/16/18 documented as of this encounter
--- OUTSIDE RECORDS SUMMARY | 2024-09-07 19:24 | XMS_ITS | Encounter Summary ---
Author Organization [facility] Address [address] [place] [address] Phone Care Team Providers Care Hurricane Tracker Name Role Phone Jhonatan Bellamy MD Primary Care Provider +1- [phone] Reason for Visit * Reason Onset Date Comments Prior Auth 03/29/2018 PA needed for Ul oric Encounter Details Date Type Department Care Team (Late st Contact Info) Description 03/29/2018 Telephone [facility] Rheumatology [address] 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
--- OUTSIDE RECORDS SUMMARY | 2024-09-07 19:24 | XMS_ITS | Encounter Summary ---
Author Organization [facility] Address [address] [address] Care Team Providers Care Sour Bleaching Pleater Name Role Phone Jhonatan Bellamy MD Primary Care Provider +1- [phone] Encounter Details Date Type Department Care Team (Late st Contact Info) Description 08/28/2017 Telephone [facility] [address] [address] Abelardo Petit MD [address] [facility] [address] [address] Social History Tobacco Use Types Packs/Day Years Used Date Smoking Tobacco: Never Smokeless Tobacco: Former Alcohol Use Standard Drinks/Week Comments No 0 (1 standard drink = 0.6 oz pur e alcohol) Sex and Gender Information Value Date Recorded Sex Assigned at Not on file 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 R ADJUSTER documented in this encounter Plan of Treatment Not on file documented as of this encounter Visit Diagnoses Not on filedocumented in this encounter Care Teams Sour Bleaching Pleater Relationship Specialty Start Date End Date Jhonatan Bellamy MD [address] [place] [address] PCP - General 03/25/15 04/16/18 documented as of this encounter
--- OUTSIDE RECORDS SUMMARY | 2024-09-07 19:24 | XMS_ITS | Encounter Summary ---
Author Organization [facility] Address [address] [address] Care Team Providers Care Mechanical Service Specialist Name Role Phone Jhonatan Bellamy MD Primary Care Provider +1- [phone] Encounter Details Date Type Department Care Team (Late st Contact Info) Description 05/01/2017 Telephone [facility] [address] [place] [address] Myrna Easton NP 6810 [facility] 162 [facility] [address] [place] [address] Social History Tobacco Use Types Packs/Day Years Used Date Smoking Tobacco: Never Assessed Sex and Gender Information Value Date Recorded Sex Assigned at Not on file 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 Pt has appt with DIRECTOR OF OUTSIDE SALES next week on May 11 . Told patient that RTW date will determined at that time. Patient said that they need clinical information sent also. Told patient that is an odd request, usually STD faxes a form for completion or requests the needed info in writing, Pt did not havethe name of the person he spoke to at [facility], said it was an unusual name . Told patient to have [facility] fax a request for the needed info to make teresa ewe are supplying the appropriate information . Patient agreeable. documented in this encounter Plan of Treatment Not on file documented as of this encounter Visit Diagnoses Not on filedocumented in this encounter Care Teams Mechanical Service Specialist Relationship Specialty Start Date End Date Jhonatan Bellamy MD [address] [place] [address] PCP - General 03/25/15 04/16/18 documented as of this encounter
--- OUTSIDE RECORDS SUMMARY | 2024-09-07 19:24 | XMS_ITS | Encounter Summary ---
Author Organization [facility] Address [address] [facility] [address] [place] [address] Care Team Providers Care Bottom Turner Name Role Phone Jhonatan Bellamy MD Primary Care Provider +1- [phone] Pedro Lakhani MD Primary Care Provider Eugenia Hughes MD Primary Care Provider +1- [phone] Aditya Castro MD Primary Care Provider [phone] Encounter Details Date Type Department Care Team (Late st Contact Info) Description 05/16/2017 Orders Only [facility] Cardiology 6810 [facility] [address] [place] [address] Provider, MD Zev [address] [place] [address] Social History Tobacco Use Types Packs/Day Years Used Date Smoking Tobacco: Never Smokeless Tobacco: Former Alcohol Use Standard Drinks/Week Comments No 0 (1 standard drink = 0.6 oz pur e alcohol) Sex and Gender Information Value Date Recorded Sex Assigned at Not on file 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 Gender Identity Not on file Sexual Orientation [...] on filedocumented in this encounter Care Teams Bottom Turner Relationship Specialty Start Date End Date Jhonatan Bellamy MD [address] [place] [address] PCP - General 03/25/15 04/16/18 Pedro Lakhani MD [address] [place] [address] PCP - General Family Practice 04/17/18 04/18/18 Eugenia Hughes MD [address] [place] [address] PCP - General Family Practice 04/19/18 10/16/19 Aditya Castro MD 619 [facility] [place] [address] PCP - General 10/17/19 documented as of this encounter
--- OUTSIDE RECORDS SUMMARY | 2024-09-07 19:24 | XMS_ITS | Encounter Summary ---
Author Organization [facility] Address [address] [address] Care Team Providers Care Wood Fence Erector Name Role Phone Jhonatan Bellamy MD Primary Care Provider +1- [phone] Encounter Details Date Type Department Care Team (Late st Contact Info) Description 07/17/2017 Telephone [facility] [address] [address] Abelardo Petit MD 6810 [facility] [address] [address] Social History Tobacco Use Types Packs/Day Years Used Date Smoking Tobacco: Never Smokeless Tobacco: Former Alcohol Use Standard Drinks/Week Comments No 0 (1 standard drink = 0.6 oz pur e alcohol) Sex and Gender Information Value Date Recorded Sex Assigned at Not on file 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 Told him, I will refax it . LAMP DEVELOPER documented in this encounter Plan of Treatment Not on file documented as of this encounter Visit Diagnoses Not on filedocumented in this encounter Care Teams Wood Fence Erector Relationship Specialty Start Date End Date Jhonatan Bellamy MD [address] [place] [address] PCP - General 03/25/15 04/16/18 documented as of this encounter
--- OUTSIDE RECORDS SUMMARY | 2024-09-07 19:24 | XMS_ITS | Encounter Summary ---
Author Organization [facility] Healthcare Address [address] [place] [address] Care Team Providers Care Forming Department Supervisor Name Role Phone Jhonatan Bellamy MD Primary Care Provider [phone] Encounter Details Date Type Department Care Team (Latest Contact Info) Description 03/21/2017 6:43 AM CDT - 03/24/2017 7:37 PM CDT Hospital Encounter [facility] ADMIT [address] [place] [address] Eloise Coulter MD [address] [place], [place] [id number] Discharge Disposition: Discharge to home or self care Social History Tobacco Use Types Packs/Day Years Used Date Smoking Tobacco: Never Assessed Sex and Gender Information Value Date Recorded Sex Assigned at Not on file Legal Sex Male 3:42 AM [employer] Gender Identity Not on file Sexual [...] POC (03/24/2017 1:42 PM CDT) Pathologist [facility] Glucose, POC 121 70 - 199 mg/dL [facility] Blood specimen (specimen) 03/24/2017 1:42 PM CDT 03/24/2017 1:42 PM CDT Eloise Coulter MD POINT OF CARE TEST ORDERABLES Final Result Performing Organization Address [facility] de Phone Number [facility] [place] [address] * Glucose POC (03/24/2017 1:07 PM CDT) Glucose, POC 95 70 - 199 mg/dL [facility] Blood specimen (specimen) 03/24/2017 1:07 PM CDT 03/24/2017 1:07 PM CDT Eloise Coulter MD POINT OF CARE TEST ORDERABLES Final Result Performing Organization Address [facility] de Phone Number [facility] Department [place] [employer] [address] * Glucose POC (03/24/2017 12:48 PM CDT) Glucose, POC 81 70 - 199 mg/dL [facility] Blood specimen (specimen) 03/24/2017 12:48 PM CDT 03/24/2017 12:48 PM CDT Eloise Coulter MD POINT OF CARE TEST ORDERABLES Final Result Performing Organization Address [facility] [place] [address] * (ABNORMAL) Glucose POC (03/24/2017 12:22 PM CDT) Glucose, POC 54(L) 70 - 199 mg/dL [facility] Blood specimen (specimen) 03/24/2017 12:22 PM CDT 03/24/2017 12:22 PM CDT us Eloise Coulter MD POINT OF CARE TEST ORDERABLES Final Result Performing Organization Address City/[facility] Co de Phone Number [facility] [place] [address] * (ABNORMAL) Glucose POC (03/24/2017 7:57 AM CDT) Glucose, POC 231(H) 70 - 199 mg/dL [facility] Blood specimen (specimen) 03/24/2017 7:57 AM CDT 03/24/2017 7:57 AM CDT us Eloise Coulter MD POINT OF CARE TEST ORDERABLES Final Result Performing Organization Address [facility] de Phone Number [facility] [place] [place] [address] * (ABNORMAL) Glucose POC (03/24/2017 3:12 AM CDT) Glucose, POC 262(H) 70 - 199 mg/dL [facility] Blood specimen (specimen) 03/24/2017 3:12 AM CDT 03/24/2017 3:12 AM CDT us Eloise Coulter MD POINT OF CARE TEST ORDERABLES Final Result Performing Organization Address [facility] Co de Phone Number [facility] Department [place] [address] * (ABNORMAL) Glucose POC (03/24/2017 1:35 AM CDT) Glucose, POC 291(H) 70 - 199 mg/dL [facility] Blood specimen (specimen) 03/24/2017 1:35 AM CDT 03/24/2017 1:35 AM CDT us Eloise Coulter MD POINT OF CARE TEST ORDERABLES Final Result Performing Organization Address City/[facility]/ZIP Co de Phone Number [facility] [place] [address] * DISCHARGE LABORATORY CUMULATIVE REPORT (03/24/2017 12:00 AM CDT) Narrative 03/24/2017 12:00 AM CDT Ordered by an unspecified provider. us Historical Provider LAB BLOOD ORDERABLES Ann Marie l Result * (ABNORMAL) Glucose POC (03/23/2017 11:23 PM CDT) Glucose, POC 324(H) 70 - 199 mg/dL [facility] Blood specimen (specimen) 03/23/2017 11:23 PM CDT 03/23/2017 11:23 PM CDT Eloise Coulter MD POINT OF CARE TEST ORDERABLES Final Result Performing Organization Address City/State/[facility] Co de Phone Number [facility] [place] [address] * US Guided Needle Placement (03/23/2017 9:42 PM CDT) Anatomical Region Laterality Modality Entire body N/A Ultrasound 03/23/2017 9:42 PM CDT Narrative 03/23/2017 9:42 PM CDT ALMA KUMAR M.D. FINAL REPORT ACC# ??Date Time ??Exam [id number] Mar 23, 2017 16:42:00 [id number] Muscle BX Perc soft tissue [id number] Mar 23, 2017 16:42:00 71279T (MSK) US Needle Guide EXAMINATION: ?Left third [...] was obtained. ??Prior to beginning the procedure, Rush Protocol was performed to confirm the patient? [...] ALMA KUMAR M.D. on Mar ??2016 ??5:28P [id number] Procedure Note Miscellaneous, Not In File - 03/23/2017 ALMA KUMAR M.D. FINAL REPORT ACC# Date Time Exam [id number] Mar 23, 2017 16:42:00 [id number] Muscle BX Perc soft tissue [id number] Mar 23, 2017 16:42:00 55892K ([facility]) US Needle Guide EXAMINATION: Left third finger [...] was obtained. Prior to beginning the procedure, Rush Protocol was performed to confirm the patient? [...] KUMAR M.D. on Mar 23 2017 5:28P [id number] us Not In File Miscellaneous IMG US PROCEDURES Ann Marie l Result * Needle Biopsy Soft Tissue Mass (03/23/2017 9:42 PM CDT) Anatomical Region Laterality Modality Body N/A X-Ray Angiograph y 03/23/2017 9:42 PM CDT Narrative 03/23/2017 9:42 PM CDT ALMA KUMAR M.D. FINAL REPORT ACC# ??Date Time ??Exam [id number] Mar 23, 2017 16:42:00 [id number] Muscle BX Perc soft tissue [id number] Mar 23, 2017 16:42:00 35283K ([facility]) US Needle Guide EXAMINATION: ?Left third [...] was obtained. ??Prior to beginning the procedure, Rush Protocol was performed to confirm the patient? [...] ALMA KUMAR M.D. on Mar ??2016 ??5:28P [id number] Procedure Note Miscellaneous, Not In File / Provider, MD Zev - 03/23/2017 ALMA KUMAR M.D. FINAL REPORT ACC# Date Time Exam [id number] Mar 23, 2017 16:42:00 73330 Muscle BX Perc soft tissue [id number] Mar 23, 2017 16:42:00 17287T ([facility]) US Needle Guide EXAMINATION: Left third [...] was obtained. Prior to beginning the procedure, Rush Protocol was performed to confirm the patient? [...] KUMAR M.D. on Mar 23 2017 5:28P [id number] us Not In File Miscellaneous IMG IR PROCEDURES Ann Marie l Result * (ABNORMAL) Basic metabolic panel (03/23/2017 9:30 PM CDT) Sodium 133(L) 135 - 145 mmol/L [facility] Potassium, pl 5.4(H) 3.3 - 4.9 mmol/L [facility] Chloride 100 97 - 110 mmol/L [facility] CO2 23 22 - 32 mmol/L [facility] BUN 48(H) 8 - 25 mg/dL [facility] Glucose 356(H) 70 - 199 mg/dL [facility] Creatinine 1.96(H) 0.80 - 1.30 mg/dL [facility] Calcium 9.0 8.5 - 10.3 mg/dL [facility] Anion gap 10 2 - 15 mmol/L [facility] Blood specimen (specimen) 03/23/2017 9:30 PM CDT 03/23/2017 10:14 PM CDT Darnell Tesfaye LAB BLOOD ORDERABLES Final Result Performing Organization Address City/State/[facility] Co de Phone Number [facility] [place] [address] * (ABNORMAL) Potassium, Whole Blood (03/23/2017 9:30 PM CDT) [facility] Potassium, bld 5.5(H) 3.3 - 4.9 mmol/L [facility] Blood specimen (specimen) 03/23/2017 9:30 PM CDT 03/23/2017 10:29 PM CDT Darnell Tesfaye LAB BLOOD ORDERABLES Final Result Performing Organization Address [facility] [place] [address] * (ABNORMAL) Glucose POC (03/23/2017 8:31 PM CDT) [facility] Glucose, POC 350(H) 70 - 199 mg/dL [facility] Blood specimen (specimen) 03/23/2017 8:31 PM CDT 03/23/2017 8:31 PM CDT Eloise Coulter MD POINT OF CARE TEST ORDERABLES Final Result Performing Organization Address [facility] de Phone Number [facility] [place] [place] [address] * Hepatitis B surface antibody (03/23/2017 6:05 PM CDT) [facility] HBsAb (immune status) Reactive [facility] Comment: Interpretive Data A Negative Result indicates [...] HBsAb (immune status) index 183.5 mIUnits/m L [facility] Blood specimen (specimen) 03/23/2017 6:05 PM CDT 03/23/2017 7:03 PM CDT Darnell Tesfaye [facility] MICROBIOLOGY - GENERAL ORDERABLES Final Result Performing Organization Address [facility] de Phone Number [facility] [place] [address] * Hepatitis B surface antigen (03/23/2017 6:05 PM CDT) Pathologist [facility] HepBsAg Nonreactive Nonreactive [facility] Blood specimen (specimen) 03/23/2017 6:05 PM CDT 03/23/2017 7:03 PM CDT Darnell Tesfaye [facility] MICROBIOLOGY - GENERAL ORDERABLES Edited Result - Final Performing Organization Address [facility] [place] [address] * Hepatitis C antibody (03/23/2017 6:05 PM CDT) Pathologist [facility] Hep C Ab Nonreactive Nonreactive [facility] Comment: Interpretive Data Positive and greyzone results should be confirmed by a molecular method. If positive or greyzone, a second separately collected sample should be submitted for Hepatitis C Virus RNA. Detection and Quantitation by Real-Time Reverse Category Specialist-PCR.Current Interpretive data was last revised on 2017. Blood specimen (specimen) 03/23/2017 6:05 PM CDT 03/23/2017 7:03 PM CDT Darnell Tesfaye [facility] MICROBIOLOGY - GENERAL ORDERABLES Edited Result - Final Performing Organization Address [facility] Co de Phone Number [facility] [employer] [place] [address] * Hepatitis B core antibody, total (03/23/2017 6:05 PM CDT) Hep B core IgG/IgM Nonreactive Nonreactive [facility] Blood specimen (specimen) 03/23/2017 6:05 PM CDT 03/23/2017 7:03 PM CDT Darnell Tesfaye LAB MICROBIOLOGY - GENERAL ORDERABLES Edited Result - Final Performing Organization Address City/[facility]/ZIP Co de Phone Number [facility] [place] [address] * Glucose POC (03/23/2017 5:46 PM CDT) Glucose, POC 173 70 - 199 mg/dL [facility] Blood specimen (specimen) 03/23/2017 5:46 PM CDT 03/23/2017 5:46 PM CDT us Eloise Coulter MD POINT OF CARE TEST ORDERABLES Final Result Performing Organization Address [facility] Co de Phone Number [facility] Department [place] [address] * Surgical pathology (03/23/2017 4:42 PM CDT) 03/23/2017 4:42 PM CDT 03/23/2017 5:00 PM CDT Narrative 03/27/2017 2:49 PM CDT [facility] Sandrine Hoyos [facility] [place] [address] SURGICAL PATHOLOGY REPORT FINAL Patient Name: JUVENAL GARVIN ? Address: [address] ??Service: ??Medical ??[place], [place] ??[address] ??Location: ??[facility] 0111 Taken: 03/23/2017 Gender: M ?? Received: 03/23/2017 : 1970 (Age: 46) ??Hospital #: [id number] Accessioned: 03/23/2017 ?Patient Type: ??[facility] Inpatient Reported: [...] determined by the Surgical Pathology Department at [facility] as part of an ongoing microbiology quality control technician program and in compliance with federally mandated [...] determined by the Surgical Pathology Department of [facility]. ??It has not been cleared or approved by the U. S. Food and Drug Administration. Alma Kumar MD LAB PATHOLOGY ORDERABLES Final Result * Aerobic and anaerobic culture and gram stain (03/23/2017 4:30 PM CDT) Direct Specimen Exam Stain: No polymorphonuclear leukocytes seen. No organisms seen. [facility] Report Final Report: No growth [facility] Biopsy (Finger, long, left) 03/23/2017 4:30 PM CDT 03/23/2017 5:33 PM CDT Narrative [facility] - 03/24/2017 7:45 AM CDT Pip [...] OR DERABLES Final Result Performing Organization Address [facility] Co de Phone Number [facility] [place] [address] * Glucose POC (03/23/2017 3:12 PM CDT) Pathologist [facility] Glucose, POC 145 70 - 199 mg/dL [facility] Blood specimen (specimen) 03/23/2017 3:12 PM CDT 03/23/2017 3:12 PM CDT Eloise Coulter MD POINT OF CARE TEST ORDERABLES Final Result Performing Organization Address [facility] de Phone Number [facility] [place] [address] * (ABNORMAL) Basic metabolic panel (03/23/2017 12:57 PM CDT) Pathologist [facility] Sodium 136 135 - 145 mmol/L [facility] Potassium, pl 5.5(H) 3.3 - 4.9 mmol/L [facility] Chloride 102 97 - 110 mmol/L [facility] CO2 24 22 - 32 mmol/L [facility] BUN 51(H) 8 - 25 mg/dL [facility] Glucose 177 70 - 199 mg/dL [facility] Creatinine 1.89(H) 0.80 - 1.30 mg/dL [facility] Calcium 9.3 8.5 - 10.3 mg/dL [facility] Anion gap 10 2 - 15 mmol/L [facility] Blood specimen (specimen) 03/23/2017 12:57 PM CDT 03/23/2017 1:24 PM CDT us Darnell Tesfaye [facility] BLOOD ORDERABLES Final Result Performing Organization Address [facility] Co de Phone Number [facility] [place] [address] * (ABNORMAL) Glucose POC (03/23/2017 11:37 AM CDT) Glucose, POC 239(H) 70 - 199 mg/dL [facility] Blood specimen (specimen) 03/23/2017 11:37 AM CDT 03/23/2017 11:37 AM CDT us Eloise Coulter MD POINT OF CARE TEST ORDERABLES Final Result Performing Organization Address [facility] de Phone Number [facility] [place] [address] * (ABNORMAL) Glucose POC (03/23/2017 10:42 AM CDT) Glucose, POC 292(H) 70 - 199 mg/dL [facility] Blood specimen (specimen) 03/23/2017 10:42 AM CDT 03/23/2017 10:42 AM CDT us Eloise Coulter MD POINT OF CARE TEST ORDERABLES Final Result Performing Organization Address [facility] Co de Phone Number [facility] [place] [place] [address] * (ABNORMAL) Glucose POC (03/23/2017 9:12 AM CDT) Glucose, POC 333(H) 70 - 199 mg/dL [facility] Blood specimen (specimen) 03/23/2017 9:12 AM CDT 03/23/2017 9:12 AM CDT us Eloise Coulter MD POINT OF CARE TEST ORDERABLES Final Result Performing Organization Address City/[facility] Co de Phone Number [facility] [place] [address] * (ABNORMAL) Glucose POC (03/23/2017 8:07 AM CDT) Glucose, POC 377(H) 70 - 199 mg/dL [facility] Blood specimen (specimen) 03/23/2017 8:07 AM CDT 03/23/2017 8:07 AM CDT us Eloise Coulter MD POINT OF CARE TEST ORDERABLES Final Result Performing Organization Address [facility] Co de Phone Number [facility] [place] [address] * (ABNORMAL) Glucose POC (03/23/2017 8:04 AM CDT) Glucose, POC 339(H) 70 - 199 mg/dL [facility] Blood specimen (specimen) 03/23/2017 8:04 AM CDT 03/23/2017 8:04 AM CDT us Eloise Coulter MD POINT OF CARE TEST ORDERABLES Final Result Performing Organization Address [facility] Co de Phone Number [facility] [place] [address] * XR Foot 2 VW (03/22/2017 10:52 PM CDT) Anatomical Region Laterality Modality N/A Radiographic Toma ging 03/22/2017 10:5 2 PM CDT Narrative 03/22/2017 10:52 PM CDT ALMA KUMAR M.D. FINAL REPORT ACC# ??Date Time ??Exam [id number] Mar 22, 2017 17:52:00 79090 Foot 2 views L [id number] Mar 22, 2017 17:52:00 [id number] Foot 2 views R EXAMINATION: ?? 1. [...] ALMA KUMAR M.D. on Mar ??2016 ??6:29A [id number] Procedure Note Miscellaneous, Not In File / Provider, MD Zev - 03/23/2017 ALMA KUMAR M.D. FINAL REPORT ACC# Date Time Exam [id number] Mar 22, 2017 17:52:00 [id number] Foot 2 views L [id number] Mar 22, 2017 17:52:00 [id number] Foot 2 views R EXAMINATION: 1. Left [...] KUMAR M.D. on Mar 23 2017 6:29A [id number] us Not In File Miscellaneous IMG XR PROCEDURES Ann Marie l Result * XR Foot 2 VW (03/22/2017 10:52 PM CDT) Anatomical Region Laterality Modality N/A Radiographic Toma ging 03/22/2017 10:5 2 PM CDT Narrative 03/22/2017 10:52 PM CDT ALMA KUMAR M.D. FINAL REPORT ACC# ??Date Time ??Exam [id number] Mar 22, 2017 17:52:00 80319 Foot 2 views L [id number] Mar 22, 2017 17:52:00 [id number] Foot 2 views R EXAMINATION: ?? 1. [...] by: ALMA KUMAR M.D. on Mar?2016 ??6:29A [id number] Procedure Note Miscellaneous, Not In File / Provider, MD Zev - 03/23/2017 ALMA KUMAR M.D. FINAL REPORT ACC# Date Time Exam [id number] Mar 22, 2017 17:52:00 [id number] Foot 2 views L [id number] Mar 22, 2017 17:52:00 [id number] Foot 2 views R EXAMINATION: 1. Left [...] KUMAR M.D. on Mar 23 2017 6:29A [id number] us Not In File Miscellaneous IMG XR PROCEDURES Ann Marie l Result * Cyclic citrul peptide antibody, IgG (03/22/2017 9:06 PM CDT) [facility] CCP Ab <0.5 units/mL [facility] Comment: Interpretive data Negative: <3 units/mL Positive: > or equal to 3 units/mL Current interpretive data was last revised on 2016. Blood specimen (specimen) 03/22/2017 9:06 PM CDT 03/22/2017 10:41 PM CDT Alex Lemus MD LAB BLOOD ORDERABLES Fi nal Result Performing Organization Address City/[facility]/ZIP Co de Phone Number [facility] Department [place] [employer] [place] [address] * Antithrombin (03/22/2017 9:06 PM CDT) [facility] Rheumatoid factor, quant <10.0 0.1 - 15.0 IUnits/mL [facility] Blood specimen (specimen) 03/22/2017 9:06 PM CDT 03/22/2017 10:41 PM CDT Alex Lemus MD LAB BLOOD ORDERABLES Fi nal Result Performing Organization Address [facility] Co de Phone Number [facility] Department [place] [employer] [place] [address] * (ABNORMAL) Basic metabolic panel (03/22/2017 9:06 PM CDT) [facility] Sodium 132(L) 135 - 145 mmol/L [facility] Potassium, pl 5.5(H) 3.3 - 4.9 mmol/L [facility] Chloride 100 97 - 110 mmol/L [facility] CO2 23 22 - 32 mmol/L [facility] BUN 49(H) 8 - 25 mg/dL [facility] Glucose 258(H) 70 - 199 mg/dL [facility] Creatinine 2.01(H) 0.80 - 1.30 mg/dL [facility] Calcium 8.7 8.5 - 10.3 mg/dL [facility] Anion gap 9 2 - 15 mmol/L [facility] Blood specimen (specimen) 03/22/2017 9:06 PM CDT 03/22/2017 10:41 PM CDT Result [facility] Alex Lemus MD LAB BLOOD ORDERABLES Ed ited Result - Final Performing Organization Address [facility] de Phone Number [facility] [place] [place] [address] * aPTT (03/22/2017 9:06 PM CDT) aPTT 31.6 25.0 - 37.0 sec [facility] Comment: Interpretive Data Therapeutic heparin range:60.0 - 94.0 sec based on correlation with therapeutic heparin activity range of 0.3 -0.7 Units/mL. Current interpretive data was last revised on 2011. Blood specimen (specimen) 03/22/2017 9:06 PM CDT 03/22/2017 10:39 PM CDT Result [facility] Alex Lemus MD LAB BLOOD ORDERABLES Fi nal Result Performing Organization Address [facility] de Phone Number [facility] [place] [address] * Protime-INR (03/22/2017 9:06 PM CDT) PT 13.5 9.2 - 14.0 sec [facility] INR 1.18 0.81 - 1.22 [facility] Comment: Interpretive Data Inpatient therapeutic ranges* Atrial fibrillation ?2.0-3.0 INR Venous thrombo-embolism ?2.0-3.0 INR Bioprosthetic heart valve ?* Mechanical heart valve, bileaflet or tilting disk,aortic position ? 2.0-3.0 INR All other,or bileaflet or tilting disk, in mitral position ? 2.5-3.5 INR *See the pharmacy resource directory (PHRED) for an updated copy of the Tool Book at [email or web address] Current Interpretive Data was last revised 2011. Blood specimen (specimen) 03/22/2017 9:06 PM CDT 03/22/2017 10:39 PM CDT Alex Lemus MD LAB BLOOD ORDERABLES Fi nal Result [facility] Department [place] [address] * (ABNORMAL) CBC without differential (03/22/2017 9:06 PM CDT) WBC 6.43 3.80 - 9.90 K/cumm [facility] RBC 2.97(L) 4.30 - 5.80 M/cumm [facility] Hgb 8.2(L) 13.0 - 17.5 g/dL [facility] Hct 26.0(L) 38.9 - 50.3 % [facility] MCV 87.5 81.3 - 96.4 fL [facility] MCH 27.6 27.1 - 33.3 pg [facility] MCHC 31.5(L) 32.3 - 35.7 g/dL [facility] RDW CV 12.9 11.1 - 14.9 % [facility] RDW SD 41.6 35.7 - 48.1 fL [facility] NRBC 0.0 0.0 - 0.2 % [facility] NRBC abs 0.00 0.00 - 0.01 K/cumm [facility] Plt 222 150 - 400 K/cumm [facility] MPV 10.0 9.1 - 12.3 fL [facility] Blood specimen (specimen) 03/22/2017 9:06 PM CDT 03/22/2017 10:41 PM CDT us Alex Lemus MD LAB BLOOD ORDERABLES Fi nal Result Performing Organization Address [facility] Co de Phone Number [facility] [place] [place] [address] * (ABNORMAL) Glucose POC (03/22/2017 8:56 PM CDT) [facility] Glucose, POC 249(H) 70 - 199 mg/dL [facility] Blood specimen (specimen) 03/22/2017 8:56 PM CDT 03/22/2017 8:56 PM CDT us Eloise Coulter MD POINT OF CARE TEST ORDERABLES Final Result Performing Organization Address [facility] de Phone Number [facility] [place] [address] * Dexa Axial Skeleton Bone Density 1 [...] RUPINDER ANDRES M.D. on Mar ??2016 ??2:38P [id number] Procedure Note Miscellaneous, Not In File / [...] ANDRES M.D. on Mar 22 2017 2:38P [id number] us Not In File Miscellaneous IMG DXA PROCEDURES Fin al Result * (ABNORMAL) Glucose POC (03/22/2017 5:59 PM CDT) Glucose, POC 201(H) 70 - 199 mg/dL [facility] Blood specimen (specimen) 03/22/2017 5:59 PM CDT 03/22/2017 5:59 PM CDT us Eloise Coulter MD POINT OF CARE TEST ORDERABLES Final Result [facility] Department [place] [address] * XR Hand 3+ VW (03/22/2017 4:37 PM CDT) Anatomical Region Laterality Modality N/A Radiographic Toma ging 03/22/2017 4:37 PM CDT Narrative 03/22/2017 4:37 PM CDT [place] CONTE M.D. FINAL REPORT ACC# ??Date Time ??Exam [id number] Mar 22, 2017 11:37:00 [id number] Hand minimum 3 views L [id number] Mar 22, 2017 11:37:00 [id number] Hand minimum 3 views R EXAMINATION: ? [...] [place] CONTE M.D. on Mar ??2016 11:57A [id number] Procedure Note Miscellaneous, Not In File / Provider, MD Zev - 03/22/2017 [place] CONTE M.D. FINAL REPORT ACC# Date Time Exam [id number] Mar 22, 2017 11:37:00 [id number] Hand minimum 3 views L [id number] Mar 22, 2017 11:37:00 [id number] Hand minimum 3 views R EXAMINATION: 1. [...] CONTE M.D. on Mar 22 2017 11:57A [id number] us Not In File Miscellaneous IMG XR PROCEDURES Ann Marie l Result * XR Hand 3+ VW (03/22/2017 4:37 PM CDT) Anatomical Region Laterality Modality N/A Radiographic Toma ging 03/22/2017 4:37 PM CDT Narrative 03/22/2017 4:37 PM CDT [place] CONTE M.D. FINAL REPORT ACC# ??Date Time ??Exam [id number] Mar 22, 2017 11:37:00 [id number] Hand minimum 3 views L [id number] Mar 22, 2017 11:37:00 26035 Hand minimum 3 views R EXAMINATION: ? [...] by: [place] CONTE M.D. on Mar?2016 11:57A [id number] Procedure Note Miscellaneous, Not In File / Provider, MD Zev - 03/22/2017 [place] CONTE M.D. FINAL REPORT ACC# Date Time Exam [id number] Mar 22, 2017 11:37:00 61439 Hand minimum 3 views L [id number] Mar 22, 2017 11:37:00 52549 Hand minimum 3 views R EXAMINATION: 1. [...] CONTE M.D. on Mar 22 2017 11:57A [id number] us Not In File Miscellaneous IMG XR PROCEDURES Ann Marie l Result * (ABNORMAL) Vitamin D 25 hydroxy (03/22/2017 2:46 PM CDT) Vitamin D 25-OH 22.7(L) 30.0 - 100.0 ng/mL [facility] Blood specimen (specimen) 03/22/2017 2:46 PM CDT 03/22/2017 3:57 PM CDT Alex Lemus MD LAB BLOOD ORDERABLES Fi nal Result Performing Organization Address City/[facility]/ZIP Co de Phone Number [facility] [place] [employer] [address] * Glucose POC (03/22/2017 2:35 PM CDT) [facility] Glucose, POC 130 70 - 199 mg/dL [facility] Blood specimen (specimen) 03/22/2017 2:35 PM CDT 03/22/2017 2:35 PM CDT us Eloise Coulter MD POINT OF CARE TEST ORDERABLES Final Result Performing Organization Address [facility] Co de Phone Number [facility] [address] * Glucose POC (03/22/2017 11:47 AM CDT) [facility] Glucose, POC 185 70 - 199 mg/dL [facility] Blood specimen (specimen) 03/22/2017 11:47 AM CDT 03/22/2017 11:47 AM CDT us Eloise Coulter MD POINT OF CARE TEST ORDERABLES Final Result Performing Organization Address City/[facility] Co de Phone Number [facility] [address] * Glucose POC (03/22/2017 8:38 AM CDT) Glucose, POC 198 70 - 199 mg/dL [facility] Blood specimen (specimen) 03/22/2017 8:38 AM CDT 03/22/2017 8:38 AM CDT us Eloise Coulter MD POINT OF CARE TEST ORDERABLES Final Result [facility] Department [place] [address] * (ABNORMAL) Lipid panel (03/21/2017 10:32 PM [...] Triglycerides 146 0 - 150 mg/dL [facility] Comment: Interpretive Data Desirable: ? < [...] on 2015. Non-HDL Cholesterol 123 mg/dL [facility] Comment: Interpretive Data When triglycerides are >200 mg/dL, non-HDL C is a secondary target of therapy, with a goal 30 mg/dL higher than the identified LDL-C goal. Reference: ??See Cholesterol Reference. Current interpretive data was last revised 2015. Blood specimen (specimen) 03/21/2017 10:32 PM CDT 03/21/2017 11:26 PM CDT Darnell Tesfaye [facility] BLOOD ORDERABLES Final Result Performing Organization Address [facility] de Phone Number [facility] [place] [address] * (ABNORMAL) Hemoglobin A1c (03/21/2017 10:32 PM CDT) Pathologist [facility] Hgb A1C 7.4(H) 4.0 - 6.0 % [facility] Estimated Average Glucose 166 mg/dL [facility] Comment: The ADA recommends reporting an estimated Average Glucose (eAG) with all Hemoglobin A1c results using the equation derived from a study of 507 normal and diabetic adults. ??Minority populations were underrepresented and children were not included. ?? (Diabetes Care 31:4877-9338, 2007). ??The eAG is not equivalent to a fasting glucose. Blood specimen (specimen) 03/21/2017 10:32 PM CDT 03/21/2017 11:29 PM CDT Darnell Tesfaye [facility] BLOOD ORDERABLES Edite d Result - Final Performing Organization Address [facility] de Phone Number [facility] [place] [address] * TSH reflex to free T4 (03/21/2017 10:32 PM CDT) TSH 0.80 0.30 - 4.20 mcIUnit/mL [facility] Comment: Interpretive Data Hyperthyroid: ??<0.1 mcIUnit/mL Hypothyroid: ??>12.0 mcIUnit/mL Current interpretive data was last revised on 00. Blood specimen (specimen) 03/21/2017 10:32 PM CDT 03/21/2017 11:26 PM CDT Darnell Tesfaye LAB BLOOD ORDERABLES Edite d Result - Final Performing Organization Address [facility] Co de Phone Number [facility] [place] [address] * Ferritin (03/21/2017 10:32 PM CDT) Ferritin 210 30 - 400 ng/mL [facility] Blood specimen (specimen) 03/21/2017 10:32 PM CDT 03/21/2017 11:26 PM CDT Darnell Tesfaye [facility] BLOOD ORDERABLES Edite d Result - Final Performing Organization Address [facility] de Phone Number [facility] [place] [address] * (ABNORMAL) Iron profile (03/21/2017 10:32 PM CDT) Iron 22(L) 50 - 150 mcg/dL [facility] UIBC 163 112 - 347 mcg/dL [facility] TIBC 185(L) 250 - 400 mcg/dL [facility] Transferrin saturation 12(L) 20 - 50 % [facility] Blood specimen (specimen) 03/21/2017 10:32 PM CDT 03/21/2017 11:26 PM CDT Darnell Tesfaye LAB BLOOD ORDERABLES Final Result Performing Organization Address [facility] Co de Phone Number [facility] [place] [address] * Troponin I (03/21/2017 10:32 PM CDT) [facility] Troponin I 0.03 0.00 - 0.03 ng/mL [facility] Comment: Interpretive Data Serial determinations are recommended for the diagnosis of myocardial infarction (Third Rush Definition of Myocardial Infarction. ??J Am Elena Cardiol 2012;60:1581-98). Current interpretive data was last revised on 13. Blood specimen (specimen) 03/21/2017 10:32 PM CDT 03/21/2017 11:26 PM CDT Darnell Tesfaye LAB BLOOD ORDERABLES Edite d Result - Final [facility] Department [place] [address] * (ABNORMAL) Comprehensive metabolic panel (03/21/2017 10:32 PM CDT) [facility] Sodium 136 135 - 145 mmol/L [facility] Potassium, pl 5.3(H) 3.3 - 4.9 mmol/L [facility] CO2 22 22 - 32 mmol/L [facility] BUN 46(H) 8 - 25 mg/dL [facility] Glucose 320(H) 70 - 199 mg/dL [facility] Creatinine 1.98(H) 0.80 - 1.30 mg/dL [facility] Calcium 8.8 8.5 - 10.3 mg/dL [facility] Chloride 103 97 - 110 mmol/L [facility] Albumin 3.0(L) 3.5 - 5.0 g/dL [facility] AST 27 10 - 50 Units/L [facility] ALT 36 7 - 55 Units/L [facility] Alk phos 102 40 - 130 Units/L [facility] Bilirubin, total 0.3 0.1 - 1.2 mg/dL [facility] Protein, pl 6.6 6.5 - 8.5 g/dL [facility] Anion gap 11 2 - 15 mmol/L [facility] Blood specimen (specimen) 03/21/2017 10:32 PM CDT 03/21/2017 11:26 PM CDT [facility] BLOOD ORDERABLES Final Result Performing Organization Address [facility] Co de Phone Number [facility] [place] [address] * Differential, auto (03/21/2017 10:32 PM CDT) Neutrophil pct 69.3 % [facility] Imm gran pct 0.4 % [facility] Lymphocyte pct 19.3 % [facility] Monocyte pct 9.4 % [facility] Eosinophil pct 1.3 % [facility] Basophil pct 0.3 % [facility] Neutrophil abs 4.69 1.70 - 6.50 K/cumm [facility] Imm gran abs 0.03 0.00 - 0.10 K/cumm [facility] Lymphocyte abs 1.31 0.80 - 3.30 K/cumm [facility] Monocyte abs 0.64 0.20 - 0.80 K/cumm [facility] Eosinophil abs 0.09 0.00 - 0.50 K/cumm [facility] Basophil abs 0.02 0.00 - 0.10 K/cumm [facility] Blood specimen (specimen) 03/21/2017 10:32 PM CDT 03/21/2017 11:25 PM CDT [facility] BLOOD ORDERABLES Final Result Performing Organization Address City/[facility]/ZIP Co de Phone Number [facility] Department [place] [address] * (ABNORMAL) CBC with auto differential (03/21/2017 10:32 PM CDT) WBC 6.78 3.80 - 9.90 K/cumm [facility] RBC 2.92(L) 4.30 - 5.80 M/cumm [facility] Hgb 8.1(L) 13.0 - 17.5 g/dL [facility] Hct 25.2(L) 38.9 - 50.3 % [facility] MCV 86.3 81.3 - 96.4 fL [facility] MCH 27.7 27.1 - 33.3 pg [facility] MCHC 32.1(L) 32.3 - 35.7 g/dL [facility] RDW CV 13.1 11.1 - 14.9 % [facility] RDW SD 41.5 35.7 - 48.1 fL [facility] Plt 218 150 - 400 K/cumm [facility] MPV 10.1 9.1 - 12.3 fL [facility] NRBC 0.0 0.0 - 0.2 % [facility] NRBC abs 0.00 0.00 - 0.01 K/cumm [facility] Blood specimen (specimen) 03/21/2017 10:32 PM CDT 03/21/2017 11:25 PM CDT us Darnell Tesfaye LAB BLOOD ORDERABLES Final Result [facility] Department [place] [address] * (ABNORMAL) Glucose POC (03/21/2017 8:30 PM CDT) Glucose, POC 323(H) 70 - 199 mg/dL [facility] Blood specimen (specimen) 03/21/2017 8:30 PM CDT 03/21/2017 8:30 PM CDT Eloise Coulter MD POINT OF CARE TEST ORDERABLES Final Result [facility] Department [place] [address] * (ABNORMAL) Glucose POC (03/21/2017 5:52 PM CDT) Glucose, POC 58(L) 70 - 199 mg/dL [facility] Blood specimen (specimen) 03/21/2017 5:52 PM CDT 03/21/2017 5:52 PM CDT us Eloise Coulter MD POINT OF CARE TEST ORDERABLES Final Result [facility] Department [place] [address] * Fluoro Guided Needle Placement (03/21/2017 3:36 PM CDT) Anatomical Region Laterality Modality Body N/A Radiographic Toma ging 03/21/2017 3:36 PM CDT Narrative 03/21/2017 3:36 PM CDT MALLORY CROSS M.D. MALISSA LEÓN M.D. FINAL REPORT The radiology attending physician has personally reviewed this study, and has reviewed and/or edited this written report and agrees with it. ACC# ??Date Time ??Exam [id number] Mar 21, 2017 10:36:00 15193I Fluoro Gd for Ndl (MSK) [id number] Mar 21, 2017 10:36:00 37241 Asp/Inj Lg Jnt ACC# ??Date Time ??Exam [id number] Mar 21, 2017 10:36:00 95918T Fluoro Gd for Ndl (MSK) [id number] Mar 21, 2017 10:36:00 89069 Asp/Inj Lg Jnt EXAMINATION: ?? Right glenohumeral [...] was obtained. ??Prior to beginning the procedure, Rush Protocol was performed to confirm the patient? [...] MALLORY CROSS M.D. on Mar ??2016 ??6:21P [id number] Procedure Note Miscellaneous, Not In File / Provider, MD Zev - 03/21/2017 Dorys ALEMAN M.D. FINAL REPORT The radiology attending physician has personally reviewed this study, and has reviewed and/or edited this written report and agrees with it. ACC# Date Time Exam [id number] Mar 21, 2017 10:36:00 [id number] Fluoro Gd for Ndl (MSK) [id number] Mar 21, 2017 10:36:00 23675 Asp/Inj Lg Jnt ACC# Date Time Exam [id number] Mar 21, 2017 10:36:00 [id number] Fluoro Gd for Ndl (EM) [id number] Mar 21, 2017 10:36:00 [id number] Asp/Inj Lg Jnt EXAMINATION: Right glenohumeral joint [...] was obtained. Prior to beginning the procedure, Rush Protocol was performed to confirm the patient? [...] CROSS M.D. on Mar 21 2017 6:21P [id number] us Not In File Miscellaneous IMG FLUOROSCOPY [...] agrees with it. ACC# ??Date Time ??Exam [id number] Mar 21, 2017 10:36:00 13635P Fluoro Gd for Ndl (MSK) [id number] Mar 21, 2017 10:36:00 71346 Asp/Inj Lg Jnt ACC# ??Date Time ??Exam [id number] Mar 21, 2017 10:36:00 [id number] Fluoro Gd for Ndl (MSK) [id number] Mar 21, 2017 10:36:00 [id number] Asp/Inj Lg Jnt EXAMINATION: ?? Right glenohumeral [...] was obtained. ??Prior to beginning the procedure, Rush Protocol was performed to confirm the patient? [...] agrees with it. ACC# Date Time Exam [id number] Mar 21, 2017 10:36:00 51595G Fluoro Gd for Ndl (MSK) [id number] Mar 21, 2017 10:36:00 78049 Asp/Inj Lg Jnt ACC# Date Time Exam [id number] Mar 21, 2017 10:36:00 [id number] Fluoro Gd for Ndl (MSK) [id number] Mar 21, 2017 10:36:00 [id number] Asp/Inj Lg Jnt EXAMINATION: Right glenohumeral joint [...] was obtained. Prior to beginning the procedure, Rush Protocol was performed to confirm the patient? [...] agrees with it. ACC# ??Date Time ??Exam [id number] Mar 21, 2017 07:58:00 14253 Shoulder minimum 2 views R EXAMINATION: ?? [...] SWATI ORTIZ M.D. on Mar ??2016 10:27A [id number] Procedure Note Miscellaneous, Not In File / Provider, MD Zev - 03/21/2017 SWATI ORTIZ M.D. DONAVON WEBB M.D. FINAL REPORT The radiology attending physician has personally reviewed this study, and has reviewed and/or edited this written report and agrees with it. ACC# Date Time Exam [id number] Mar 21, 2017 07:58:00 65589 Shoulder minimum 2 views R EXAMINATION: Shoulder [...] ORTIZ M.D. on Mar 21 2017 10:27A [id number] us Not In File Miscellaneous IMG XR [...] agrees with it. ACC# ??Date Time ??Exam [id number] Mar 21, 2017 07:58:00 96720 Chest 2 views Frontl ??and ??Lat ACC# ??Date Time ??Exam [id number] Mar 21, 2017 07:58:00 [id number] Chest 2 views Frontl ??and ??Lat EXAMINATION: [...] by: SWATI ORTIZ M.D. on Mar?2016 10:27A [id number] Procedure Note Miscellaneous, Not In File / Provider, MD Zev - 03/21/2017 SWATI ORTIZ M.D. DONAVON WEBB M.D. FINAL REPORT The radiology attending physician has personally reviewed this study, and has reviewed and/or edited this written report and agrees with it. ACC# Date Time Exam [id number] Mar 21, 2017 07:58:00 21374 Chest 2 views Frontl and Lat ACC# Date Time Exam [id number] Mar 21, 2017 07:58:00 [id number] Chest 2 views Frontl and Lat EXAMINATION: [...] ORTIZ M.D. on Mar 21 2017 10:27A [id number] us Not In File Miscellaneous IMG XR PROCEDURES Ann Marie l Result * N. gonorrhoeae/C. trachomatis amplification test (03/21/2017 11:53 AM CDT) Report Final Report: Negative for: ??Chlamydia trachomatis rRNA Negative for: ??Neisseria gonorrhoeae rRNA [facility] Urine 03/21/2017 11:5 3 AM CDT 03/21/2017 12:07 PM CDT Narrative [facility] - 03/21/2017 12:07 PM CDT Testing performed by the Gen-Probe [employer] APTIMA Combo 2 Assay. This nucleic acid amplification test (NAAT) detects ribosomal RNA (rRNA) from Chlamydia trachomatis and Neisseria gonorrhoeae using target capture,and Category Specialist-Mediated Amplification (TMA). This test is approved by the [place] Food and Drug Administration for endocervical, vaginal, and male urethral swab specimens, in addition to male and female urine specimens. The performance characteristics for these specimen types have been verified by the [facility].The performance characteristics of this assay for pharyngeal and rectal specimens collected from cervical swab collection devices have been validated and verified by the [facility]. Verification studies support [...] City/[facility]/ZIP Co de Phone Number [facility] [place] [address] * B Check Sample (03/21/2017 8:24 AM CDT) ABO Rh A Positive [facility] HCLL OTHER 03/21/2017 8:24 AM CDT 03/21/2017 9:32 AM CDT us Notinfile Unknown LAB BLOOD ORDERABLES Final Res ult Performing Organization Address [facility] Co de Phone Number [facility] [place] [employer] [place] [address] * Lactate POC (03/21/2017 8:24 AM CDT) Pathologist [facility] Lactate POC i-STAT 1.0 0.7 - 2.2 mmol/L [facility] Blood specimen (specimen) 03/21/2017 8:24 AM CDT 03/21/2017 8:24 AM CDT us Notinfile Unknown LAB BLOOD ORDERABLES Final Res ult Performing Organization Address City/[facility] Co de Phone Number [facility] Department [place] [address] * Blood culture (03/21/2017 8:11 AM CDT) [...] organism identification may be performed using the [employer] Nanosphere Gram Positive Blood Culture Assay. ??The Nanosphere assay detects microbial DNA in positive blood culture broth via hybridization of target DNA to capture oligonucleotides on a microarray. ??This assay has been cleared by the [place] Food and Drug Administration and its performance characteristics have been verified by the [facility]. Current Interpretive Data was last revised on 2014. Estelita Bishop MD LAB MICROBIOLOGY - GENERAL ORDERABLES Final Result [facility] Department [place] [address] * Blood culture (03/21/2017 8:11 AM CDT) Report Final Report: No growth [facility] Blood specimen (specimen) (Antecubital, left) 03/21/2017 [...] organism identification may be performed using the [employer] Nanosphere Gram Positive Blood Culture Assay. ??The Nanosphere assay detects microbial DNA in positive blood culture broth via hybridization of target DNA to capture oligonucleotides on a microarray. ??This assay has been cleared by the [place] Food and Drug Administration and its performance characteristics have been verified by the [facility]. Current Interpretive Data was last revised on 2014. us Estelita Bishop MD LAB MICROBIOLOGY - GENERAL ORDERABLES Final Result Performing Organization Address [facility] Co de Phone Number [facility] [place] [place] [address] * Uric acid (03/21/2017 8:11 AM CDT) Uric acid 8.0 3.0 - 8.0 mg/dL [facility] Blood specimen (specimen) 03/21/2017 8:11 AM CDT 03/21/2017 8:22 AM CDT us Estelita Bishop MD LAB BLOOD ORDERABL ES Edited Result - Final Performing Organization Address [facility] de Phone Number [facility] [place] [address] * (ABNORMAL) CRP (acute phase) (03/21/2017 8:11 AM CDT) CRP 107.2(H) 0.0 - 9.9 mg/L [facility] Blood specimen (specimen) 03/21/2017 8:11 AM CDT 03/21/2017 8:22 AM CDT us Estelita Bishop MD LAB BLOOD ORDERABL ES Final Result Performing Organization Address [facility] de Phone Number [facility] Department [place] [address] * Hepatic function panel (03/21/2017 8:11 AM CDT) AST 34 10 - 50 Units/L [facility] ALT 45 7 - 55 Units/L [facility] Alk phos 114 40 - 130 Units/L [facility] Bilirubin, total 0.4 0.1 - 1.2 mg/dL [facility] Bilirubin, direct <0.2 0.1 - 0.3 mg/dL [facility] Protein, pl 7.7 6.5 - 8.5 g/dL [facility] Albumin 3.8 3.5 - 5.0 g/dL [facility] Blood specimen (specimen) 03/21/2017 8:11 AM CDT 03/21/2017 8:22 AM CDT Result [facility] Estelita Bishop MD LAB BLOOD ORDERABL ES Edited Result - Final Performing Organization Address City/[facility] Co de Phone Number [facility] [employer] [place] [address] * aPTT (03/21/2017 8:11 AM CDT) Pathologist [facility] aPTT 32.5 25.0 - 37.0 sec [facility] Comment: Interpretive Data Therapeutic heparin range:60.0 - 94.0 sec based on correlation with therapeutic heparin activity range of 0.3 -0.7 Units/mL. Current interpretive data was last revised on 2011. Blood specimen (specimen) 03/21/2017 8:11 AM CDT 03/21/2017 8:58 AM CDT Estelita Bishop MD LAB BLOOD ORDERABL ES Final Result Performing Organization Address City/[facility]/ZIP Co de Phone Number [facility] [place] [address] * (ABNORMAL) Protime-INR (03/21/2017 8:11 AM CDT) Pathologist [facility] PT 16.2(H) 9.2 - 14.0 sec [facility] INR 1.41(H) 0.81 - 1.22 [facility] Comment: Interpretive Data Inpatient therapeutic ranges* Atrial fibrillation ?2.0-3.0 INR Venous thrombo-embolism ?2.0-3.0 INR Bioprosthetic heart valve ?* Mechanical heart valve, bileaflet or tilting disk,aortic position ? 2.0-3.0 INR All other,or bileaflet or tilting disk, in mitral position ? 2.5-3.5 INR *See the pharmacy resource directory (PHRED) for an updated copy of the Tool Book at [email or web address] Current Interpretive Data was last revised 2011. Blood specimen (specimen) 03/21/2017 8:11 AM CDT 03/21/2017 8:58 AM CDT Estelita Bishop MD LAB BLOOD ORDERABL ES Final Result [facility] Department [place] [address] * Type and screen (03/21/2017 8:11 AM CDT) Maribel, indirect Negative [facility] ABO Rh A Positive [facility] Blood specimen (specimen) 03/21/2017 8:11 AM CDT 03/21/2017 8:23 AM CDT Estelita Bishop MD LAB BLOOD BANK ERNESTO T ORDERABLES Edited Result - Final [facility] Department [place] [employer] [address] * (ABNORMAL) Erythrocyte sedimentation rate (03/21/2017 8:11 AM CDT) Erythrocyte sedimentation rate 102(H) 0 - 12 mm/H [facility] Blood specimen (specimen) 03/21/2017 8:11 AM CDT 03/21/2017 8:22 AM CDT Estelita Bishop MD LAB BLOOD ORDERABL ES Final Result Performing Organization Address [facility] de Phone Number [facility] [place] [address] * (ABNORMAL) Urinalysis, microscopic only (03/21/2017 7:15 AM CDT) RBC, ur 1 0 - 3 /HPF [facility] WBC, ur 0 0 - 5 /HPF [facility] Bacteria, ur Negative Trace [facility] Epithelial cells, renal, ur 0 0 - 0 /HPF [facility] Mucus, ur Small /HPF [facility] Hyaline casts, ur >2(H) 0 - 0 /LPF [facility] Urine 03/21/2017 7:15 AM CDT 03/21/2017 7:46 AM CDT Estelita Bishop MD LAB URINE ORDERABL ES Final Result Performing Organization Address [facility] de Phone Number [facility] [place] [address] * (ABNORMAL) Urinalysis reflex to microscopic (03/21/2017 7:15 AM CDT) Color, ur Colorless Yellow [facility] Clarity, ur Clear Clear [facility] Specific gravity, ur 1.005 1.003 - 1.030 [facility] pH, ur 5.0 5.0 - 8.0 [facility] Albumin, ur Negative Trace [facility] Glucose, ur ql Negative Negative [facility] Ketones, ur Negative Negative [facility] Bilirubin, ur Negative Negative [facility] Blood, ur 1+(A) Negative [facility] Urobilinogen, ur <2.0 <2.0 mg/dL [facility] Nitrites, ur Negative Negative [facility] Leukocyte esterase, ur Negative Negative [facility] Urine 03/21/2017 7:15 AM CDT 03/21/2017 7:46 AM CDT us Estelita Bishop MD LAB URINE ORDERABL ES Final Result Performing Organization Address [facility] Co de Phone Number [facility] Department [place] [employer] [place] [address] * (ABNORMAL) Basic metabolic panel (03/21/2017 7:15 AM CDT) Pathologist [facility] [facility] Sodium 140 135 - 145 mmol/L [facility] Potassium, pl 5.9(H) 3.3 - 4.9 mmol/L [facility] Chloride 108 97 - 110 mmol/L [facility] CO2 21(L) 22 - 32 mmol/L [facility] BUN 50(H) 8 - 25 mg/dL [facility] Glucose 137 70 - 199 mg/dL [facility] Creatinine 1.99(H) 0.80 - 1.30 mg/dL [facility] Calcium 9.2 8.5 - 10.3 mg/dL [facility] Anion gap 11 2 - 15 mmol/L [facility] Blood specimen (specimen) 03/21/2017 7:15 AM CDT 03/21/2017 7:26 AM CDT us Daniel Mejia MD LAB BLOOD ORDERABLES Final Res ult Performing Organization Address [facility] Co de Phone Number [facility] Department [place] [employer] [place] [address] * (ABNORMAL) B-type natriuretic peptide (03/21/2017 7:15 AM CDT) Pathologist [facility] B-Type Natriuretic Peptide (BNP) 113(H) 0 - 100 pg/mL [facility] Blood specimen (specimen) 03/21/2017 7:15 AM CDT 03/21/2017 7:26 AM CDT us Daniel Mejia MD LAB BLOOD ORDERABLES Final Res ult Performing Organization Address [facility] Co de Phone Number [facility] [place] [place] [address] * Troponin I (03/21/2017 7:15 AM CDT) Pathologist [facility] Troponin I 0.03 0.00 - 0.03 ng/mL [facility] Comment: Interpretive Data Serial determinations are recommended for the diagnosis of myocardial infarction (Third Rush Definition of Myocardial Infarction. ??J Am Elena Cardiol 2012;60:1581-98). Current interpretive data was last revised on 13. Blood specimen (specimen) 03/21/2017 7:15 AM CDT 03/21/2017 7:26 AM CDT us Daniel Mejia MD LAB BLOOD ORDERABLES Edited Re sult - Final Performing Organization Address [facility] Co de Phone Number [facility] [place] [address] * (ABNORMAL) Differential, auto (03/21/2017 7:15 AM CDT) Pathologist [facility] Neutrophil pct 74.9 % [facility] Imm gran pct 0.5 % [facility] Lymphocyte pct 11.9 % [facility] Monocyte pct 11.8 % [facility] Eosinophil pct 0.8 % [facility] Basophil pct 0.1 % [facility] Neutrophil abs 6.21 1.70 - 6.50 K/cumm [facility] Imm gran abs 0.04 0.00 - 0.10 K/cumm [facility] Lymphocyte abs 0.99 0.80 - 3.30 K/cumm [facility] Monocyte abs 0.98(H) 0.20 - 0.80 K/cumm [facility] Eosinophil abs 0.07 0.00 - 0.50 K/cumm [facility] Basophil abs 0.01 0.00 - 0.10 K/cumm [facility] Blood specimen (specimen) 03/21/2017 7:15 AM CDT 03/21/2017 7:26 AM CDT us Daniel Mejia MD LAB BLOOD ORDERABLES Final Res ult Performing Organization Address [facility] Co de Phone Number [facility] Department [place] [address] * (ABNORMAL) CBC with auto differential (03/21/2017 7:15 AM CDT) WBC 8.30 3.80 - 9.90 K/cumm [facility] RBC 3.24(L) 4.30 - 5.80 M/cumm [facility] Hgb 9.1(L) 13.0 - 17.5 g/dL [facility] Hct 28.2(L) 38.9 - 50.3 % [facility] MCV 87.0 81.3 - 96.4 fL [facility] MCH 28.1 27.1 - 33.3 pg [facility] MCHC 32.3 32.3 - 35.7 g/dL [facility] RDW CV 13.2 11.1 - 14.9 % [facility] RDW SD 41.9 35.7 - 48.1 fL [facility] Plt 232 150 - 400 K/cumm [facility] MPV 9.5 9.1 - 12.3 fL [facility] NRBC 0.0 0.0 - 0.2 % [facility] NRBC abs 0.00 0.00 - 0.01 K/cumm [facility] Blood specimen (specimen) 03/21/2017 7:15 AM CDT 03/21/2017 7:26 AM CDT us Daniel Mejia MD LAB BLOOD ORDERABLES Final Res ult Performing Organization Address [facility]/State/ZIP Co de Phone Number [facility] Department [place] [address] * Glucose POC (03/21/2017 6:50 AM CDT) Glucose, POC 141 70 - 199 mg/dL [facility] Blood specimen (specimen) 03/21/2017 6:50 AM CDT 03/21/2017 6:50 AM CDT us Notinfile Unknown POINT OF CARE TEST ORDERABLES Final Result [facility] [place] [address] * TRANSTHORACIC ECHO (TTE) COMPLETE W DOPPLER/CF WO CONTRAST (03/21/2017) Anatomical Region Laterality Modality Ultrasound us Provider Scanning CV ECHO PROCEDURES Final Resul t * ELECTROCARDIOGRAPHY (ECG) (03/21/2017) us Provider Scanning ECG ORDERABLES Edited Result - Final documented in this encounter Visit Diagnoses Not on filedocumented in this encounter Care Teams Forming Department Supervisor Relationship Specialty Start Date End Date Jhonatan Bellamy MD [address] [place] [address] PCP - General 03/25/15 04/16/18 documented as of this encounter
--- OUTSIDE RECORDS SUMMARY | 2024-09-07 19:24 | XMS_ITS | Encounter Summary ---
Author Organization [facility] Address [address] [address] Care Team Providers Care Second Facing Baster Name Role Phone Jhonatan Bellamy MD Primary Care Provider +1- [phone] Encounter Details Date Type Department Care Team (Late st Contact Info) Description 06/08/2017 Telephone [facility] [address] [address] Abelardo Petit MD 6810 [facility] [address] [address] Social History Tobacco Use Types Packs/Day Years Used Date Smoking Tobacco: Never Smokeless Tobacco: Former Alcohol Use Standard Drinks/Week Comments No 0 (1 standard drink = 0.6 oz pur e alcohol) Sex and Gender Information Value Date Recorded Sex Assigned at Not on file 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
--- OUTSIDE RECORDS SUMMARY | 2024-09-07 19:24 | XMS_ITS | Encounter Summary ---
Author Organization [facility] Medical Group Address [address] [address] Care Team Providers Care Technical Maintenance Technician Name Role Phone Jhonatan Bellamy MD Primary Care Provider +1- [phone] Encounter Details Date Type Department Care Team (Late st Contact Info) Description 08/15/2017 Telephone [facility] [address] [address] Abelardo Petit MD 6810 [facility] [address] [address] Social History Tobacco Use Types Packs/Day Years Used Date Smoking Tobacco: Never Smokeless Tobacco: Former Alcohol Use Standard Drinks/Week Comments No 0 (1 standard drink = 0.6 oz pur e alcohol) Sex and Gender Information Value Date Recorded Sex Assigned at Not on file 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
--- OUTSIDE RECORDS SUMMARY | 2024-09-07 19:24 | XMS_ITS | Encounter Summary ---
Author Organization [facility] Medical Group Address [address] [address] Care Team Providers Care Tourist Escort Name Role Phone Jhonatan Bellamy MD Primary Care Provider +1- [phone] Encounter Details Date Type Department Care Team (Late st Contact Info) Description 05/30/2017 Telephone [facility] [address] [address] Abelardo Petit MD [address] [facility] [address] [address] Social History Tobacco Use Types Packs/Day Years Used Date Smoking Tobacco: Never Smokeless Tobacco: Former Alcohol Use Standard Drinks/Week Comments No 0 (1 standard drink = 0.6 oz pur e alcohol) Sex and Gender Information Value Date Recorded Sex Assigned at Not on file 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 documented in this encounter Plan of Treatment Not on file documented as of this encounter Visit Diagnoses Not on filedocumented in this encounter Care Teams Tourist Escort Relationship Specialty Start Date End Date Malench, Jhonatan E., MD [address] [place] [address] PCP - General 03/25/15 04/16/18 documented as of this encounter
--- OUTSIDE RECORDS SUMMARY | 2024-09-07 19:24 | XMS_ITS | Encounter Summary ---
Author Organization [facility] Medical Group Address [address] [address] Care Team Providers Care Clinic Charge Nurse Name Role Phone Jhonatan Bellamy MD Primary Care Provider +1- [phone] Encounter Details Date Type Department Care Team (Late st Contact Info) Description 07/20/2017 Telephone [facility] [address] [address] Abelardo Petit MD 6810 [facility] [address] [address] Social History Tobacco Use Types Packs/Day Years Used Date Smoking Tobacco: Never Smokeless Tobacco: Former Alcohol Use Standard Drinks/Week Comments No 0 (1 standard drink = 0.6 oz pur e alcohol) Sex and Gender Information Value Date Recorded Sex Assigned at Not on file Legal Sex Male 3:42 AM PROFESSIONAL DEVELOPMENT DIRECTOR Gender Identity Not on file Sexual Orientation Not on file documented as of this encounter Miscellaneous Notes * Telephone Encounter - Lisa Diaz RN - 07/20/2017 2:49 PM CST Pt will call backw ith where to send his fitness for duty form. ESSIONAL DEVELOPMENT DIRECTOR * Telephone Encounter - Lisa Diaz RN - 07/20/2017 2:48 PM CST told pt I have his daughter's FMLa paperwork for intermittent leave. Will complete and ffax as soonas possible. ESSIONAL DEVELOPMENT DIRECTOR documented in this encounter Plan of Treatment Not on file documented as of this encounter Visit Diagnoses Not on filedocumented in this encounter Care Teams Clinic Charge Nurse Relationship Specialty Start Date End Date Jhonatan Bellamy MD [address] [place] [address] PCP - General 03/25/15 04/16/18 documented as of this encounter
--- OUTSIDE RECORDS SUMMARY | 2024-09-07 19:24 | XMS_ITS | Encounter Summary ---
Author Organization [facility] Healthcare Address [address] [place] [address] Care Team Providers Care Import Export Clerk Name Role Phone Jhonatan Bellamy MD Primary Care Provider +1- [phone] Encounter Details Date Type Department Care Team (Latest Contact Info) Description 06/13/2017 8:00 AM CDT - 06/13/2017 11:01 AM T Hospital Encounter [facility] OP INTERIM [phone] Corine Arriaga MD [address] [place] [address] Discharge Disposition: Discharge to home or self care Social History Tobacco Use Types Packs/Day Years Used Date Smoking Tobacco: Never Smokeless Tobacco: Former Alcohol Use Standard Drinks/Week Comments No 0 (1 standard drink = 0.6 oz pur e alcohol) Sex and Gender Information Value Date Recorded Sex Assigned at Not on file Legal Sex Male 3:42 AM FLOSSER Gender Identity Not on file Sexual Orientation Not on file documented as of this encounter Medications at Time of Discharge aspirin 81 mg enteric coated tabletIndications: Myocardial Reinfarction Prevention Take 1 tablet (81 mg total) by mouth daily 11/07/2013 nitroglycerin (NITROSTAT) 0.4 mg SL tabletIndications: Coronary artery disease involving [place] coronary artery of [place] heart, angina presence unspecified Place 1 tablet [...] MD Zev - 06/13/2017 12:00 AM CDT [facility] Patient: JUVENAL GARVIN Account: [id number] Room No: : 1970 Proc. Date: 06/13/2017 Surgeon: CORINE ARRIAGA M.D. Admit Date: 06/13/2017 Disch. 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 ANESTHESIA General with LMA. PROCEDURE Cataract removal by phacoemulsification and implantation of +21.5 diopter Tecnis [id number] lens right eye. DESCRIPTION OF THE PROCEDURE [...] visually verifying that a 21.5 diopter Tecnis [id number] was the correct lens for this pt, [...] OF CARE TEST ORDERABLES Final Result [facility] [address] [facility] Department [place] [address] * DISCHARGE LABORATORY CUMULATIVE REPORT (06/13/2017 12:00 AM CDT) Narrative 06/13/2017 12:00 AM CDT Ordered by an unspecified provider. Historical Provider LAB BLOOD ORDERABLES Ann Marie l Result documented in this encounter Visit Diagnoses Not on filedocumented in this encounter Care Teams Import Export Clerk Relationship Specialty Start Date End Date Jhonatan Bellamy MD [address] [place] [address] PCP - General 03/25/15 04/16/18 documented as of this encounter
--- OUTSIDE RECORDS SUMMARY | 2024-09-07 19:24 | XMS_ITS | Encounter Summary ---
Author Organization [facility] Medical Group Address [address] [address] Care Team Providers Care Group Home Manager Name Role Phone Jhonatan Bellamy MD Primary Care Provider +1- [phone] Encounter Details Date Type Department Care Team (Late st Contact Info) Description 08/22/2017 Telephone [facility] [address] [address] Abelardo Petit MD 6810 [facility] [address] [address] Social History Tobacco Use Types Packs/Day Years Used Date Smoking Tobacco: Never Smokeless Tobacco: Former Alcohol Use Standard Drinks/Week Comments No 0 (1 standard drink = 0.6 oz pur e alcohol) Sex and Gender Information Value Date Recorded Sex Assigned at Not on file Legal Sex Male 3:42 AM PIPE STRIPPER Gender Identity Not on file Sexual Orientation Not on file documented as of this encounter Miscellaneous Notes * Telephone Encounter - Lisa Diaz RN - 08/22/2017 2:22 PM CST Pt igor that HR did not receive his forms. todl pt that we will refax them. STRIPPER * Telephone Encounter - Lisa Diaz RN - 08/22/2017 11:31 AM CST Pt notified that forms were completed and faxed last week. STRIPPER documented in this encounter Plan of Treatment Not on file documented as of this encounter Visit Diagnoses Not on filedocumented in this encounter Care Teams Group Home Manager Relationship Specialty Start Date End Date Jhonatan Bellamy MD [address] [place] [address] PCP - General 03/25/15 04/16/18 documented as of this encounter
--- OUTSIDE RECORDS SUMMARY | 2024-09-07 19:24 | XMS_ITS | Encounter Summary ---
Author Organization [facility] Medical Group Address [address] [address] Care Team Providers Care Protective Signal Repairer Helper Name Role Phone Jhonatan Bellamy MD Primary Care Provider +1- [phone] Encounter Details Date Type Department Care Team (Late st Contact Info) Description 07/31/2017 Telephone [facility] [address] [address] Abelardo Petit MD 6810 [facility] [address] [address] Social History Tobacco Use Types Packs/Day Years Used Date Smoking Tobacco: Never Smokeless Tobacco: Former Alcohol Use Standard Drinks/Week Comments No 0 (1 standard drink = 0.6 oz pur e alcohol) Sex and Gender Information Value Date Recorded Sex Assigned at Not on file Legal Sex Male 3:42 AM TOOLING 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 Gave authorization to refill furosemide 40 mg twice daily, #60 with 5 additional refills. ING ENGINEER * Telephone Encounter - Elsie Holly RN - 07/31/2017 4:09 PM TOOLING ENGINEER Will forward to MA's ING ENGINEER documented in this encounter Plan of Treatment Not on file documented as of this encounter Visit Diagnoses Not on filedocumented in this encounter Care Teams Protective Signal Repairer Helper Relationship Specialty Start Date End Date Jhonatan Bellamy MD [address] [place] [address] PCP - General 03/25/15 04/16/18 documented as of this encounter
--- OUTSIDE RECORDS SUMMARY | 2024-09-07 19:24 | XMS_ITS | Encounter Summary ---
Author Organization [facility] Healthcare Address [address] [place] [address] Care Team Providers Care Assisted Living Coordinator Name Role Phone Jhonatan Bellamy MD Primary Care Provider +1- [phone] Encounter Details Date Type Department Care Team (Latest Contact Info) Description 09/19/2017 11:58 AM DIRECTOR OF NUCLEAR MEDICINE - 09/19/2017 4:33 PM [facility] Hospital Encounter [facility] INTERIM [phone] Zully Arriaga MD [address] [place] [address] Discharge Disposition: Discharge to home or self care Social History Tobacco Use Types Packs/Day Years Used Date Smoking Tobacco: Never Smokeless Tobacco: Former Alcohol Use Standard Drinks/Week Comments No 0 (1 standard drink = 0.6 oz pur e alcohol) Sex and Gender Information Value Date Recorded Sex Assigned at Not on file Legal Sex Male 3:42 AM DIRECTOR OF NUCLEAR MEDICINE Gender Identity Not on file Sexual Orientation Not on file documented as of this encounter Medications at Time of Discharge aspirin 81 mg enteric coated tabletIndications: Myocardial Reinfarction Prevention Take 1 tablet (81 mg total) by mouth daily 11/07/2013 nitroglycerin (NITROSTAT) 0.4 mg SL tabletIndications: Coronary artery disease involving [place] coronary artery of [place] heart, angina presence unspecified Place 1 tablet [...] Comments GLUCOSE POC Routine 09/19/2017 1:07 PM DIRECTOR OF NUCLEAR MEDICINE DISCHARGE LABORATORY CUMULATIVE REPORT 09/19/2017 12:00 AM DIRECTOR OF NUCLEAR MEDICINE documented in this encounter Results * (ABNORMAL) Glucose POC (09/19/2017 1:07 PM DIRECTOR OF NUCLEAR MEDICINE) [facility] Glucose, POC 403(C) 70 - 199 mg/dL [facility] Comment: Interpretive Data Glucose is assumed to be non-fasting. Fasting Glucose reference ranges are: 0 - 150 years: ??70 mg/dL - 99 mg/dL Current interpretive data was last revised on 2014. Glucose comment 1 RN/MD Notified AL[facility]A [facility] Blood specimen (specimen) 09/19/2017 1:07 PM DIRECTOR OF NUCLEAR MEDICINE 09/19/2017 1:07 PM DIRECTOR OF NUCLEAR MEDICINE Narrative [facility]A [facility] - 09/19/2017 1:15 PM DIRECTOR OF NUCLEAR MEDICINE Zully Arriaga MD POINT OF CARE TEST ORDERABLES Final Result [facility] [address] [facility] Department [place] [address] * DISCHARGE LABORATORY CUMULATIVE REPORT (09/19/2017 12:00 AM DIRECTOR OF NUCLEAR MEDICINE) Narrative 09/19/2017 12:00 AM DIRECTOR OF NUCLEAR MEDICINE Ordered by an unspecified provider. Zev Provider LAB BLOOD ORDERABLES Ann Marie l Result documented in this encounter Visit Diagnoses Not on filedocumented in this encounter Care Teams Assisted Living Coordinator Relationship Specialty Start Date End Date Jhonatan Bellamy MD [address] [place], [place] [address] PCP - General 03/25/15 04/16/18 documented as of this encounter
--- OUTSIDE RECORDS SUMMARY | 2024-09-07 19:24 | XMS_ITS | Encounter Summary ---
Author Organization [facility] Healthcare Address [address] [place] [address] Care Team Providers Care V Belt Finisher Name Role Phone Jhonatan Bellamy MD Primary Care Provider +1- [phone] Encounter Details Date Type Department Care Team (Late st Contact Info) Description 04/28/2017 4:41 PM CDT - 04/28/2017 11:59 PM CDT Hospital Encounter [facility] OP INTERIM [phone] Karina Johnson MD [address] [place] [address] Discharge Disposition: Discharge to home or self care Social History Tobacco Use Types Packs/Day Years Used Date Smoking Tobacco: Never Assessed Sex and Gender Information Value Date Recorded Sex Assigned at Not on file Legal Sex Male 3:42 AM CLIENT RELATIONS SPECIALIST Gender Identity Not on file [...] MD LAB BLOOD ORDERABLES Final Re sult [facility] Department [place] [address] * DISCHARGE LABORATORY CUMULATIVE REPORT (04/28/2017 12:00 AM CDT) Narrative 04/28/2017 12:00 AM CDT Ordered by an unspecified provider. Historical Provider LAB BLOOD ORDERABLES Ann Marie l Result documented in this encounter Visit Diagnoses Not on filedocumented in this encounter Care Teams V Belt Finisher Relationship Specialty Start Date End Date Jhonatan Bellamy MD [address] [place] [address] PCP - General 03/25/15 04/16/18 documented as of this encounter
--- OUTSIDE RECORDS SUMMARY | 2024-09-07 19:24 | XMS_ITS | Encounter Summary ---
Author Organization [facility] Healthcare Address [address] [place] [address] Care Team Providers Care Chemical Research Engineer Name Role Phone Jhonatan Bellamy MD Primary Care Provider +1- [phone] Encounter Details Date Type Department Care Team (Latest Contact Info) Description 07/19/2017 6:30 PM MALT SPECIFICATIONS CONTROL ASSISTANT - 07/19/2017 7:02 PM MALT SPECIFICATIONS CONTROL ASSISTANT Hospital Encounter [facility] Narendra Hutchison Type 2 diabetes mellitus with hypoglycemia without coma (CMS/HCC); Heart failure (CMS/HCC); Other terminal press operator (current) drug therapy Social History Tobacco Use Types Packs/Day Years Used Date Smoking Tobacco: Never Smokeless Tobacco: Former Alcohol Use Standard Drinks/Week Comments No 0 (1 standard drink = 0.6 oz pur e alcohol) Sex and Gender Information Value Date Recorded Sex Assigned at Not on file Legal Sex Male 3:42 AM MALT SPECIFICATIONS CONTROL ASSISTANT Gender Identity Not on file Sexual Orientation Not on file documented as of this encounter Last Filed Vital Signs Vital Sign Reading Time Taken Comments Blood Pressure 131/67 07/19/2017 6:31 PM MALT SPECIFICATIONS CONTROL ASSISTANT Pulse 73 07/19/2017 6:31 PM MALT SPECIFICATIONS CONTROL ASSISTANT Temperature 36.6 ??C (97.9 ??F) 07/19/2017 6:31 PM CS T Respiratory Rate - - Oxygen Saturation 97% 07/19/2017 6:31 PM MALT SPECIFICATIONS CONTROL ASSISTANT Inhaled Oxygen Concentration - - Weight 112.9 kg (249 lb) 07/19/2017 6:31 PM MALT SPECIFICATIONS CONTROL ASSISTANT Height - - Body Mass Index 35.73 07/19/2017 10:34 AM MALT SPECIFICATIONS CONTROL ASSISTANT documented in this encounter Medications at Time of Discharge aspirin 81 mg enteric coated tabletIndications: Myocardial Reinfarction Prevention Take 1 tablet (81 mg total) by mouth daily 11/07/2013 nitroglycerin (NITROSTAT) 0.4 mg SL tabletIndications: Coronary artery disease involving [place] coronary artery of [place] heart, angina presence unspecified Place 1 tablet [...] Heart failure (HCC) Unspecified heart failure Other senior care (current) drug therapy documented in this encounter Care Teams Chemical Research Engineer Relationship Specialty Start Date End Date Jhonatan Bellamy MD [address] [place] [address] PCP - General 03/25/15 04/16/18 documented as of this encounter
--- OUTSIDE RECORDS SUMMARY | 2024-09-07 19:24 | XMS_ITS | Encounter Summary ---
Author Organization [facility] Address [address] [facility] [address] [place] [address] Care Team Providers Care Qa Automation Developer Name Role Phone Jhonatan Bellamy MD Primary Care Provider +1- [phone] Encounter Details Date Type Department Care Team (Late st Contact Info) Description 11/15/2017 Telephone [facility] 6810 [facility] [address] [address] Abelardo Petit MD [address] [facility] [address] [place] [address] Social History Tobacco Use Types Packs/Day Years Used Date Smoking Tobacco: Never Smokeless Tobacco: Former Alcohol Use Standard Drinks/Week Comments No 0 (1 standard drink = 0.6 oz pur e alcohol) Sex and Gender Information Value Date Recorded Sex Assigned at Not on file Legal Sex Male 3:42 AM CLOTHES PRESSER Gender Identity Not on file Sexual Orientation Not on file documented as of this encounter Miscellaneous Notes * Telephone Encounter - Lisa Diaz RN - 11/15/2017 10:07 AM CDT Called pt back, he asked if paperwork from [employer] was received. It has not been. Pt does not Want usto send anything to [employer] releasing him to work, He has chest pressure and feels really lousy at work. He is exhausted after working a shift. He has an district attorney to help him with SS disability [...] about disability. Pt can be reached at [phone] LV Ram documented in this encounter Plan of Treatment Not on file documented as of this encounter Visit Diagnoses Not on filedocumented in this encounter Care Teams Qa Automation Developer Relationship Specialty Start Date End Date Jhonatan Bellamy MD [address] [place] [address] PCP - General 03/25/15 04/16/18 documented as of this encounter
--- OUTSIDE RECORDS SUMMARY | 2024-09-07 19:24 | XMS_ITS | Encounter Summary ---
Author Organization [facility] Address [address] [facility] [address] [place] [address] Care Team Providers Care Quarrying Specialist Name Role Phone Jhonatan Bellamy MD Primary Care Provider +1- [phone] Reason for Visit * Reason Comments Follow-up 2-3 week follow up o n CAD Encounter Details Date Type Department Care Team (Late st Contact Info) Description 05/23/2017 9:45 AM CDT Office Visit [facility] [address] [place] [address] Abelardo Petit MD [address] [facility] [address] [id number] 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 He underwent catheterization and was found to have a high-grade stenosis in the distal right coronary artery bridging over the origin of his manager payroll lateral branch. He also has diffuse non flow limiting disease elsewhere. There shimon 80% ostial stenosis of a very small 1st marginal branch of his circumflex which is being treatedmedically. The patient's other comorbidities include hypertension advanced chronic kidney disease and longstanding diabetes. He has significant anemia of chronic disease as well. The patient was rehospitalized at [facility] in April of 2017 with some dyspnea [...] return to work. 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
--- OUTSIDE RECORDS SUMMARY | 2024-09-07 19:24 | XMS_ITS | Encounter Summary ---
Author Organization [facility] Address [address] [place] [address] Phone Care Team Providers Care Casino Floor Supervisor Name Role Phone Jhonatan Bellamy MD Primary Care Provider +1- [phone] Reason for Visit * Reason Onset Date Comments Prior Auth 01/23/2018 pa for Colcrys n eeded Encounter Details Date Type Department Care Team (Late st Contact Info) Description 01/23/2018 Telephone [facility] Scheduling 49[address] [place], [place] [phone] Karina Pelletier MD [address] [place], [place] [phone] Prior Auth (pa for Colcrys needed) Social History Tobacco Use Types Packs/Day Years Used Date Smoking Tobacco: Never Smokeless Tobacco: Former Alcohol Use Standard Drinks/Week Comments No 0 (1 standard drink = 0.6 oz pur e alcohol) Sex and Gender Information Value Date Recorded Sex Assigned at Not on file Legal Sex Male 3:42 AM MAIL CLERKS SUPERVISOR Gender Identity Not on file Sexual Orientation Not on file documented as of this encounter Miscellaneous Notes * Telephone Encounter - Josselin Meyers BS - 01/25/2018 3:53 PM CDT SPOKE WITH MR. GARVIN AND SENT TASK TO DR. PELLETIER REGARDING COLCHICINE MEDICATION. Pt [place] 01/19/18-02/17/18. [facility] [employer] EFFECTIVE ON [...] on filedocumented in this encounter Care Teams Casino Floor Supervisor Relationship Specialty Start Date End Date Jhonatan Bellamy MD [address] [place] [address] PCP - General 03/25/15 04/16/18 documented as of this encounter
--- OUTSIDE RECORDS SUMMARY | 2024-09-07 19:24 | XMS_ITS | Encounter Summary ---
Author Organization [facility] Address [address] [address] Care Team Providers Care Wireless Sales Consultant Name Role Phone Jhonatan Bellamy MD Primary Care Provider +1- [phone] Encounter Details Date Type Department Care Team (Late st Contact Info) Description 10/16/2017 Telephone [facility] [address] [address] Abelardo Petit MD [address] [facility] [address] [place] [address] Social History Tobacco Use Types Packs/Day Years Used Date Smoking Tobacco: Never Smokeless Tobacco: Former Alcohol Use Standard Drinks/Week Comments No 0 (1 standard drink = 0.6 oz pur e alcohol) Sex and Gender Information Value Date Recorded Sex Assigned at Not on file Legal Sex Male 3:42 AM INSURANCE REPRESENTATIVE Gender Identity Not on file Sexual Orientation Not on file documented as of this encounter Miscellaneous Notes * Telephone Encounter - Lisa Diaz RN - 10/17/2017 8:[address] Marisabel LM for pt that his appointment has been rescheduled to March 28 at 8:30 RANCE REPRESENTATIVE * Telephone Encounter - Gaby Vergara - [...] Dr Petit wants to see him again. RANCE REPRESENTATIVE documented in this encounter Plan of Treatment Not on file documented as of this encounter Visit Diagnoses Not on filedocumented in this encounter Care Teams Wireless Sales Consultant Relationship Specialty Start Date End Date Jhonatan Bellamy MD [address] [place] [address] PCP - General 03/25/15 04/16/18 documented as of this encounter
--- OUTSIDE RECORDS SUMMARY | 2024-09-07 19:24 | XMS_ITS | Encounter Summary ---
Author Organization [facility] Address [address] [place] [address] Phone Care Team Providers Care Dials Supervisor Name Role Phone Jhonatan Bellamy MD Primary Care Provider +1- [phone] Encounter Details Date Type Department Care Team (Late st Contact Info) Description 03/22/2018 Telephone [facility] Rheumatology 49[address] [facility] Advanced Medicine 5th [place] [address] [place] [address] Alexis Gonzalez RMA Social History Tobacco Use Types Packs/Day Years Used Date Smoking Tobacco: Never Smokeless Tobacco: Former Alcohol Use Standard Drinks/Week Comments No 0 (1 standard drink = 0.6 oz pur e alcohol) Sex and Gender Information Value Date Recorded Sex Assigned at Not on file Legal Sex Male 3:42 AM BACKBREAKER Gender Identity Not on file Sexual Orientation [...] on filedocumented in this encounter Care Teams Dials Supervisor Relationship Specialty Start Date End Date Jhonatan Bellamy MD [address] [place] [address] PCP - General 03/25/15 04/16/18 documented as of this encounter
--- OUTSIDE RECORDS SUMMARY | 2024-09-07 19:24 | XMS_ITS | Encounter Summary ---
Author Organization [facility] Address [address] [facility] [address] [place] [address] Care Team Providers Care Operational Intelligence Analyst Name Role Phone Jhonatan Bellamy MD Primary Care Provider +1- [phone] Reason for Visit * Reason Comments Follow-up Encounter Details Date Type Department Care Team (Late st Contact Info) Description 09/13/2017 9:00 AM DRUPAL ARCHITECT Office Visit [facility] [address] [address] Abelardo Petit MD [address] [place] [phone] History of coronary artery stent placement (Primary Dx); Chronic kidney disease, stage III (moderate); 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[place] artery of [place] heart with stable angina pectoris (CMS/HCC) Social History Tobacco Use Types Packs/Day Years Used Date Smoking Tobacco: Never Smokeless Tobacco: Former Alcohol Use Standard Drinks/Week Comments No 0 (1 standard drink = 0.6 oz pur e alcohol) Sex and Gender Information Value Date Recorded Sex Assigned at Not on file Legal Sex Male 3:42 AM DRUPAL ARCHITECT Gender Identity Not on file Sexual Orientation Not on file documented as of this encounter Last Filed Vital Signs Vital Sign Reading Time Taken Comments Blood Pressure 126/48 09/13/2017 8:59 AM DRUPAL ARCHITECT Pulse 68 09/13/2017 8:59 AM DRUPAL ARCHITECT Temperature - - Respiratory Rate - - Oxygen Saturation 98% 09/13/2017 8:59 AM DRUPAL ARCHITECT Inhaled Oxygen Concentration - - Weight 117 kg (258 lb) 09/13/2017 8:59 AM DRUPAL ARCHITECT Height 177.8 cm (5' 10 ) 09/13/2017 8:59 AM DRUPAL ARCHITECT Body Mass Index 37.02 09/13/2017 8:59 AM DRUPAL ARCHITECT documented in this encounter Progress Notes * [...] non ST elevation [place]. He underwent catheterization in 5 of was found to have high-grade stenosis in the distal right coronary artery bridging over the origin of the teacher of the handicapped lateral branch. He also had diffuse non [...] stage III (moderate) 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[place] artery of [place] heart with stable angina pectoris ([facility]) PLAN/RECOMMENDATIONS For now no [...] him lose his job. Abelardo Petit MD AL ARCHITECT documented in this encounter Plan of Treatment Not on file documented as of this encounter Visit Diagnoses Diagnosis History of coronary artery stent placement- Primary Chronic kidney disease, stage III (moderate) (HCC) Chronic kidney disease, Stage III (moderate) 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[place] artery of [place] heart with stable angina pectoris (HCC) documented in this encounter Care Teams Operational Intelligence Analyst Relationship Specialty Start Date End Date Jhonatan Bellamy MD [address] [place] [address] PCP - General 03/25/15 04/16/18 documented as of this encounter
--- OUTSIDE RECORDS SUMMARY | 2024-09-07 19:24 | XMS_ITS | Encounter Summary ---
Author Organization [facility] Address [address] [address] Care Team Providers Care Director Of Epidemiology Name Role Phone Jhonatan Bellamy MD Primary Care Provider +1- [phone] Encounter Details Date Type Department Care Team (Late st Contact Info) Description 06/09/2017 Telephone [facility] [address] [address] Abelardo Petit MD 6810 [facility] [address] [address] Social History Tobacco Use Types Packs/Day Years Used Date Smoking Tobacco: Never Smokeless Tobacco: Former Alcohol Use Standard Drinks/Week Comments No 0 (1 standard drink = 0.6 oz pur e alcohol) Sex and Gender Information Value Date Recorded Sex Assigned at Not on file Legal 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 documented in this encounter Plan of Treatment Not on file documented as of this encounter Visit Diagnoses Not on filedocumented in this encounter Care Teams Director Of Epidemiology Relationship Specialty Start Date End Date Jhonatan Bellamy MD [address] [place] [address] PCP - General 03/25/15 04/16/18 documented as of this encounter
--- OUTSIDE RECORDS SUMMARY | 2024-09-07 19:24 | XMS_ITS | Encounter Summary ---
Author Organization [facility] Address [address] [place] [address] Phone Care Team Providers Care Project Developer Name Role Phone Jhonatan Bellamy MD Primary Care Provider +1- [phone] Encounter Details Date Type Department Care Team (Late st Contact Info) Description 03/15/2018 Telephone [facility] Rheumatology 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
--- OUTSIDE RECORDS SUMMARY | 2024-09-07 19:24 | XMS_ITS | Encounter Summary ---
Author Organization [facility] Address [address] [address] Care Team Providers Care Certified Medical Coder Name Role Phone Jhonatan Bellamy MD Primary Care Provider +1- [phone] Encounter Details Date Type Department Care Team (Late st Contact Info) Description 08/03/2017 Telephone [facility] [address] [address] Abelardo Petit MD 6810 [facility] [address] [address] Social History Tobacco Use Types Packs/Day Years Used Date Smoking Tobacco: Never Smokeless Tobacco: Former Alcohol Use Standard Drinks/Week Comments No 0 (1 standard drink = 0.6 oz pur e alcohol) Sex and Gender Information Value Date Recorded Sex Assigned at Not on file Legal Sex Male 3:42 AM ENERGY ENGINEER Gender Identity Not on file Sexual Orientation Not on file documented as of this encounter Miscellaneous Notes * Telephone Encounter - Lisa Diaz RN - 08/03/2017 1:34 PM CST Pt needs ADA form completed so he can return to work, The form should be faxed here today. GY ENGINEER documented in this encounter Plan of Treatment Not on file documented as of this encounter Visit Diagnoses Not on filedocumented in this encounter Care Teams Certified Medical Coder Relationship Specialty Start Date End Date Jhonatan Bellamy MD [address] [place] [address] PCP - General 03/25/15 04/16/18 documented as of this encounter
--- OUTSIDE RECORDS SUMMARY | 2024-09-07 19:24 | XMS_ITS | Encounter Summary ---
Author Organization [facility] Address [address] [facility] [address] [place] [address] Care Team Providers Care Mica Plate Layer Hand Name Role Phone Jhonatan Bellamy MD Primary Care Provider +1- [phone] Reason for Visit * Reason Comments Hospital Follow Up 2 wk f/u Encounter Details Date Type Department Care Team (Late st Contact Info) Description 05/04/2017 1:30 PM CDT Office Visit [facility] [address] [address] Myrna Easton NP 6810 [facility] [address] [address] Coronary artery disease involving [place] coronary artery of [place] heart, angina presence unspecified (Primary Dx); Status [...] on file Legal Sex Male 3:42 AM LIP OF SHANK CUTTER Gender Identity Not on file [...] mg SL tabletIndications: Coronary artery disease involving [place] coronary artery of [place] heart, angina presence unspecified Place 1 tablet [...] vein DVT on 03/08/2017. He presented to [facility] on 04/15/[address] elevation [place]. He proceeded to the petroleum laboratory technician with Dr. Petit. He had a high-grade [...] problems aside from that. He saw his tag press operator Dr. Reyes on 04/25/2017. He was given [...] with each other. 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 He is and has 2 children. Records Reviewed this visit: Most recent [facility] admission records including cardiology consultation, cath [...] this visit: 1. Coronary artery disease involving [place] coronary artery of [place] heart, angina presence unspecified (Primary) - nitroglycerin [...] would prefer to discuss this with his tag press operator. I told the patient and his mother [...] 35 minutes visit were spent in direct [id number] consultation with the patient and his mother answering their questions, discussing his symptoms and course of treatment. 05/05/2017 Addendum: This morning I called the office of tag press operator Dr. Reyes and relayed a message to [...] Visit Diagnoses Diagnosis Coronary artery disease involving [place] coronary artery of [place] heart, angina presence unspecified- Primary Status post [...] 05/23/2017 added in this encounter Care Teams Mica Plate Layer Hand Relationship Specialty Start Date End Date Jhonatan Bellamy MD [address] [place] [address] PCP - General 03/25/15 04/16/18 documented as of this encounter
--- OUTSIDE RECORDS SUMMARY | 2024-09-07 19:24 | XMS_ITS | Encounter Summary ---
Author Organization [facility] Address [address] [address] Care Team Providers Care Packaging Clerk Name Role Phone Jhonatan Bellamy MD Primary Care Provider +1- [phone] Encounter Details Date Type Department Care Team (Late st Contact Info) Description 2017 Telephone [facility] [address] [address] Abelardo Petit MD 6810 [facility] [address] [address] Social History Tobacco Use Types Packs/Day Years Used Date Smoking Tobacco: Never Smokeless Tobacco: Former Alcohol Use Standard Drinks/Week Comments No 0 (1 standard drink = 0.6 oz pur e alcohol) Sex and Gender Information Value Date Recorded Sex Assigned at Not on file Legal Sex Male 3:42 AM SIGN FABRICATOR Gender Identity Not on file Sexual Orientation Not on file documented as of this encounter Miscellaneous Notes * Telephone Encounter - Lisa Diaz RN - 2017 2:54 PM CST Told pt that Dr Petit is in the office today and I asked someone to ask him about completing the ADA forms. I will call pt when they are complete. FABRICATOR documented in this encounter Plan of Treatment Not on file documented as of this encounter Visit Diagnoses Not on filedocumented in this encounter Care Teams Packaging Clerk Relationship Specialty Start Date End Date Jhonatan Bellamy MD [address] [place], [place] [address] PCP - General 03/25/15 04/16/18 documented as of this encounter
--- OUTSIDE RECORDS SUMMARY | 2024-09-07 19:24 | XMS_ITS | Encounter Summary ---
Author Organization [facility] Address [address] [place] [address] Phone Care Team Providers Care Log Carrier Operator Name Role Phone Jhonatan Bellamy MD Primary Care Provider +1- [phone] Reason for Visit * Reason Onset Date Comments Prior Auth 01/25/2018 colchicine 0.6mg Encounter Details Date Type Department Care Team (Late st Contact Info) Description 01/25/2018 Telephone [facility] Rheumatology 4921 [facility] Medicine 5th [place] [address] [place] [address] Miguel Pelletier MD [address] [place], [place] [phone] Prior Auth (colchicine 0.6mg) Social History Tobacco Use Types Packs/Day Years Used Date Smoking Tobacco: Never Smokeless Tobacco: Former Alcohol Use Standard Drinks/Week Comments No 0 (1 standard drink = 0.6 oz pur e alcohol) Sex and Gender Information Value Date Recorded Sex Assigned at Not on file Legal Sex Male 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 I DID NOT SEE IN THE [employer] SYSTEM. THANKS SO MUCH. * Telephone Encounter [...] MONTHS. MR. GARVIN IS CURRENTLY COVERED BY [place] FOR ANOTHER 14 DAYS WITH THE TERM DATE ON 02/17/2018. ON HE WILL BE INSURED BY [employer] WHICH IS ANOTHER [place] MEDICAID MANAGED PLAN. SO WE WILL HAVE [...] MONTHS. MR. GARVIN IS CURRENTLY C[place] FOR ANOTHER 14 DAYS WITH THE TERM DATE ON 02/17/2018. ON HE WILL BE INSURED BY [employer] WHICH IS ANOTHER [place] MEDICAID MANAGED PLAN. [...] on filedocumented in this encounter Care Teams Log Carrier Operator Relationship Specialty Start Date End Date Jhonatan Bellamy MD [address] [place] [address] PCP - General 03/25/15 04/16/18 documented as of this encounter
--- OUTSIDE RECORDS SUMMARY | 2024-09-07 19:24 | XMS_ITS | Encounter Summary ---
Author Organization [facility] Address [address] [address] Care Team Providers Care Groover Runner Name Role Phone Jhonatan Bellamy MD Primary Care Provider +1- [phone] Encounter Details Date Type Department Care Team (Late st Contact Info) Description 06/12/2017 Telephone [facility] [address] [address] Abelardo Petit MD 6810 [facility] 162 [facility] [address] [place] [address] Social History Tobacco Use Types Packs/Day Years Used Date Smoking Tobacco: Never Smokeless Tobacco: Former Alcohol Use Standard Drinks/Week Comments No 0 (1 standard drink = 0.6 oz pur e alcohol) Sex and Gender Information Value Date Recorded Sex Assigned at Not on file Legal Sex Male 3:42 AM VALVE SETTER Gender Identity Not on file Sexual [...] documented as of this encounter Care Teams Groover Runner Relationship Specialty Start Date End Date Jhonatan Bellamy MD [address] [place] [address] PCP - General 03/25/15 04/16/18 documented as of this encounter
--- OUTSIDE RECORDS SUMMARY | 2024-09-07 19:24 | XMS_ITS | Encounter Summary ---
Author Organization [facility] Address [address] [address] Care Team Providers Care Painter Hand Name Role Phone Jhonatan Bellamy MD Primary Care Provider +1- [phone] Encounter Details Date Type Department Care Team (Late st Contact Info) Description 08/01/2017 Telephone [facility] [address] [address] Abelardo Petit MD 6810 [facility] [address] [address] Social History Tobacco Use Types Packs/Day Years Used Date Smoking Tobacco: Never Smokeless Tobacco: Former Alcohol Use Standard Drinks/Week Comments No 0 (1 standard drink = 0.6 oz pur e alcohol) Sex and Gender Information Value Date Recorded Sex Assigned at Not on file Legal Sex Male 3:42 AM MANAGER CONCRETE Gender Identity Not on file Sexual Orientation Not on file documented as of this encounter Miscellaneous Notes * Telephone Encounter - Lisa Diaz RN - 08/01/2017 10:07 AM CST Asked pt about the last date he worked to complete STD/LTD forms. GER CONCRETE documented in this encounter Plan of Treatment Not on file documented as of this encounter Visit Diagnoses Not on filedocumented in this encounter Care Teams Painter Hand Relationship Specialty Start Date End Date Malench, Jhonatan E., MD [address] [place] [address] PCP - General 03/25/15 04/16/18 documented as of this encounter
--- OUTSIDE RECORDS SUMMARY | 2024-09-07 19:24 | XMS_ITS | Encounter Summary ---
Author Organization [facility] Medical Group Address [address] [address] Care Team Providers Care Mainframe Developer Name Role Phone Jhonatan Bellamy MD Primary Care Provider +1- [phone] Encounter Details Date Type Department Care Team (Late st Contact Info) Description 09/11/2017 Telephone [facility] [address] [place] [address] Shira Bernstein RMA Social History Tobacco Use Types Packs/Day Years Used Date Smoking Tobacco: Never Smokeless Tobacco: Former Alcohol Use Standard Drinks/Week Comments No 0 (1 standard drink = 0.6 oz pur e alcohol) Sex and Gender Information Value Date Recorded Sex Assigned at Not on file Legal Sex Male 3:42 AM SUPERVISOR CUTTING AND SEWING ROOM Gender Identity Not on file Sexual Orientation Not on file documented as of this encounter Miscellaneous Notes * Telephone Encounter - Gaby Anderson RN - 09/11/2017 1:41 PM SUPERVISOR CUTTING AND SEWING ROOM I returned the call to annamarie. She is requesting copy of last office note. Note faxed to her at [phone]. She will call us back if she has any further questions after receiving the note. RVISOR CUTTING AND SEWING ROOM * Telephone Encounter - Shira Bernstein MA - 09/11/2017 11:13 AM CST Please give the pt a call in regards to the restrictions that the pt has been placed on. What activity can the pt do, or not do RVISOR CUTTING AND SEWING ROOM documented in this encounter Plan of Treatment Not on file documented as of this encounter Visit Diagnoses Not on filedocumented in this encounter Care Teams Mainframe Developer Relationship Specialty Start Date End Date Jhonatan Bellamy MD [address] [place] [address] PCP - General 03/25/15 04/16/18 documented as of this encounter
--- OUTSIDE RECORDS SUMMARY | 2024-09-07 19:24 | XMS_ITS | Encounter Summary ---
Author Organization [facility] Address [address] [facility] [address] [place] [address] Care Team Providers Care Fur Blender Name Role Phone Eugenia Hughes MD Primary Care Provider +1- [phone] Encounter Details Date Type Department Care Team (Late st Contact Info) Description 09/10/2019 Orders Only [facility] Cardiology [address] [facility] 162 [address] [place] [phone] Luís Arizmendi MD [address] [place] [id number] Social History Tobacco Use Types Packs/Day Years Used Date Smoking Tobacco: Never Smokeless Tobacco: Former Alcohol Use Standard Drinks/Week Comments No 0 (1 standard drink = 0.6 oz pur e alcohol) Sex and Gender Information Value Date Recorded Sex Assigned at Not on file Legal Sex Male 3:42 AM DRAUGHTSMAN Gender Identity Not on file Sexual Orientation [...] on filedocumented in this encounter Care Teams Fur Blender Relationship Specialty Start Date End Date Eugenia Hughes MD PCP - General Family Practice 04/19/18 10/16/19 documented as of this encounter
--- OUTSIDE RECORDS SUMMARY | 2024-09-07 19:24 | XMS_ITS | Encounter Summary ---
Author Organization [facility] Medical [facility] Address [address] [address] Care Team Providers Care Consulting Hr Professional Name Role Phone Jhonatan Bellamy MD Primary Care Provider +1- [phone] Encounter Details Date Type Department Care Team (Late st Contact Info) Description 07/25/2017 Telephone [facility] [address] [address] Abelardo Petit MD 6810 [facility] [address] [address] Social History Tobacco Use Types Packs/Day Years Used Date Smoking Tobacco: Never Smokeless Tobacco: Former Alcohol Use Standard Drinks/Week Comments No 0 (1 standard drink = 0.6 oz pur e alcohol) Sex and Gender Information Value Date Recorded Sex Assigned at Not on file Legal Sex Male 3:42 AM SEAL MIXER Gender Identity Not on file Sexual Orientation Not on file documented as of this encounter Miscellaneous Notes * Telephone Encounter - Lisa Diaz RN - 07/25/2017 11:04 AM CST told pt that RTW note will be at the front desk team member for pickup. MIXER * Telephone Encounter - Constance Magana MA - 07/25/2017 10:40 AM SEAL MIXER Pt calling about fitness for duty form, wants to come by and pick it up, and wants to know if he has any restrictions, pt can be reached at [phone] MIXER documented in this encounter Plan of Treatment Not on file documented as of this encounter Visit Diagnoses Not on filedocumented in this encounter Care Teams Consulting Hr Professional Relationship Specialty Start Date End Date Jhonatan Bellamy MD [address] [place], [place] [id number] PCP - General 03/25/15 04/16/18 documented as of this encounter
--- OUTSIDE RECORDS SUMMARY | 2024-09-07 19:24 | XMS_ITS | Encounter Summary ---
Author Organization [facility] Medical [facility] Address [address] [address] Care Team Providers Care Hogshead Inspector Name Role Phone Jhonatan Bellamy MD Primary Care Provider +1- [phone] Pedro Lakhani MD Primary Care Provider Eugenia Hughes MD Primary Care Provider +1- [phone] Aditya Castro MD Primary Care Provider [phone] Encounter Details Date Type Department Care Team (Late st Contact Info) Description 06/12/2017 Telephone [facility] [address] [address] Abelardo Petit MD [address] [address] Social History Tobacco Use Types Packs/Day Years Used Date Smoking Tobacco: Never Smokeless Tobacco: Former Alcohol Use Standard Drinks/Week Comments No 0 (1 standard drink = 0.6 oz pur e alcohol) Sex and Gender Information Value Date Recorded Sex Assigned at Not on file Legal 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 Gender Identity Not on file Sexual Orientation Not on file documented as of this encounter Plan of Treatment Not on file documented as of this encounter Visit Diagnoses Not on filedocumented in this encounter Care Teams Hogshead Inspector Relationship Specialty Start Date End Date Jhonatan Bellamy MD [address] [place] [address] PCP - General 03/25/15 04/16/18 Pedro Lakhani MD [address] [place] [address] PCP - General Family Practice 04/17/18 04/18/18 Eugenia Hughes MD [address] [place] [address] PCP - General Family Practice 04/19/18 10/16/19 Aditya Castro MD 619 [facility] [place] [address] PCP - General 10/17/19 documented as of this encounter
--- OUTSIDE RECORDS SUMMARY | 2024-09-07 19:24 | XMS_ITS | Encounter Summary ---
Author Organization [facility] Address [address] [place] [address] Phone Care Team Providers Care Consultative Sales Associate Name Role Phone Jhonatan Bellamy MD Primary Care Provider +1- [phone] Encounter Details Date Type Department Care Team (Late st Contact Info) Description 03/15/2018 Orders Only [facility] Rheumatology [address] [facility] Advanced Medicine 5th [place] [address] [place] [address] Alexis Gonzalez RMA Chronic gout [...] file Legal Sex Male 3:42 AM GLASS MOULD CLEANER Gender Identity Not on file Sexual Orientation Not on file documented as of this encounter Plan of Treatment Not on file documented as of this encounter Visit Diagnoses Diagnosis Chronic gout with tophus, unspecified cause, unspecified site- Primary documented in this encounter Care Teams Consultative Sales Associate Relationship Specialty Start Date End Date Jhonatan Bellamy MD [address] [place] [address] PCP - General 03/25/15 04/16/18 documented as of this encounter
--- OUTSIDE RECORDS SUMMARY | 2024-09-07 19:24 | XMS_ITS | Encounter Summary ---
Author Organization [facility] Medical [facility] Address 6[address] [facility] [address] [place] [address] Care Team Providers Care Test Lead Name Role Phone Eugenia Hughes MD Primary Care Provider +1- [phone] Reason for Visit * Reason Comments Coronary Artery Disease 3 mo f/u Encounter Details Date Type Department Care Team (Late st Contact Info) Description 04/19/2018 9:45 AM CDT Office Visit [facility] [address] [address] Abelardo Petit MD [address] [place] [address] [address] 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[place] artery of [place] heart with stable angina pectoris (CMS/HCC) (Primary Dx); History of coronary artery stent placement Social History Tobacco Use Types Packs/Day Years Used Date Smoking Tobacco: Never Smokeless Tobacco: Former Alcohol Use Standard Drinks/Week Comments No 0 (1 standard drink = 0.6 oz pur e alcohol) Sex and Gender Information Value Date Recorded Sex Assigned at Not on file Legal Sex Male 3:42 AM PAINTER DRUM Gender Identity Not on file Sexual Orientation [...] enzyme evidence of a non ST elevation [place]. He underwent catheterization in 5 of was found to have high-grade stenosis in the distal right coronary artery bridging over the origin of the wheel roller lateral branch. He also had diffuse non [...] for this visit: 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[place] artery of [place] heart with stable angina pectoris (CMS/HCC) History [...] 9:09 AM CDT 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[place] artery of [place] heart with stable angina pectoris (CMS/HCC) documented [...] Visit Diagnoses Diagnosis 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[place] artery of [place] heart with stable angina pectoris (HCC)- Primary History of coronary artery stent placement documented in this encounter Care Teams Test Lead Relationship Specialty Start Date End Date Eugenia Hughes MD PCP - General Family Practice 04/19/18 10/16/19 documented as of this encounter
--- OUTSIDE RECORDS SUMMARY | 2024-09-07 19:24 | XMS_ITS | Encounter Summary ---
Author Organization [facility] Address [address] [place] [address] Care Team Providers Care Brine Supervisor Name Role Phone Aditya Castro MD Primary Care Provider [phone] Encounter Details Date Type Department Care Team (Late st Contact Info) Description 10/17/2019 9:05 AM FITTER HAND Hospital Encounter [facility] Saulo Dockery MD [address] [id number] Social History Tobacco Use Types Packs/Day Years Used Date Smoking Tobacco: Never Smokeless Tobacco: Former Alcohol Use Standard Drinks/Week Comments No 0 (1 standard drink = 0.6 oz pur e alcohol) Sex and Gender Information Value Date Recorded Sex Assigned at Not on file Legal Sex Male 3:42 AM FITTER HAND Gender Identity Not on file Sexual [...] BASIC METABOLIC PANEL Routine 10/17/2019 10:42 AM FITTER HAND XR CHEST PA LATERAL 2 VIEWS 10/17/2019 12:00 AM FITTER HAND documented in this encounter Results * (ABNORMAL) Basic metabolic panel (10/17/2019 10:42 AM FITTER HAND) Sodium 140 135 - 145 mmol/L [facility] Potassium 4.5 3.3 - 5.1 mmol/L [facility] Chloride 101 96 - 108 mmol/L [facility] Carbon Dioxide 25 22 - 32 mmol/L [facility] Anion Gap 14 7 - 16 [facility] Glucose 189(H) 70 - 100 mg/dL [facility] BUN 94(H) 8 - 25 mg/dL [facility] Creatinine 4.7(H) 0.5 - 1.3 mg/dL [facility] Comment: NOTE: Estimated GFR (Cockroft-Gault) will NOT be calculated unless patient Height and Weight were entered. Also, Kidney Disease Stage (GFR) and Estimated GFR (Cockroft-Gault) will NOT be calculated if Creatinine result is <0.2. Kidney Disease Stage <15 mL/MIN [facility] Comment: NOTE; ??The GFR is an [...] dialysis Calcium 9.1 8.6 - 10.3 mg/dL [facility] 10/17/2019 10:4 2 AM FITTER HAND 10/17/2019 10:55 AM FITTER HAND Narrative Resulting Agency Comment CLI us Lorne Mustafa MD LAB BLOOD ORDERABLES Final Re sult [address] [address] [place] [address], [facility] [phone] * XR Chest Pa Lateral 2 Views (10/17/2019 12:00 AM FITTER HAND) Anatomical Region Laterality Modality Body, Chest N/A Radiographic Toma ging 10/17/2019 4:10 PM FITTER HAND Narrative 10/17/2019 4:11 PM FITTER HAND Patient Name: JUVENAL GARVIN JR ?Ordering Dr: Lorne Mustafa MD ?? D.O.B: 1970 ? Exam Date: 10/17/ ?? 0000 ?? Age: 49 ?Sex: Male ? MR#: [id number] ?? Loc: ? RADIOLOGY REPORT ?? Order #[id number] ?? Radiology ? Chest 2 Views ? [...] T: ??10/17/2019 4:11 PM ? Report ID: [id number] ?? Reading Location: ??[id number] ? REPORT ELECTRONICALLY SIGNED IN OTHER VENDOR SYSTEM ?? Resulting Agency Comment O Procedure Note Cherelle Berrios MD - 10/17/2019 Patient Name: JUVENAL GARVIN Dr: Lorne Mustafa MD D.O.B: 1970 Exam Date: 10/17/19 0000 Age: 49 Sex: Male MR#: [id number] Loc: RADIOLOGY REPORT Order #[id number] Radiology Chest 2 Views Signed EXAM DESCRIPTION: [...] Cherelle Berrios M.D. TB: TB Report ID: [id number] Reading Location: [place] [address] REPORT ELECTRONICALLY SIGNED IN OTHER VENDOR SYSTEM us Lorne Mustafa MD IMG XR PROCEDURES Final Resul t documented in this encounter Visit Diagnoses Not on filedocumented in this encounter Care Teams Brine Supervisor Relationship Specialty Start Date End Date Aditya Castro MD [address] [place] [address] [place] [address] PCP - General 10/17/19 documented as of this encounter
--- OUTSIDE RECORDS SUMMARY | 2024-09-07 19:24 | XMS_ITS | Encounter Summary ---
Author Organization [facility] Address [address] [address] Care Team Providers Care Formal Service Waiter Name Role Phone Jhonatan Bellamy MD Primary Care Provider +1- [phone] Encounter Details Date Type Department Care Team (Late st Contact Info) Description 05/22/2017 Telephone [facility] [address] [address] Abelardo Petit MD 6810 [facility] [address] [address] Social History Tobacco Use Types Packs/Day Years Used Date Smoking Tobacco: Never Smokeless Tobacco: Former Alcohol Use Standard Drinks/Week Comments No 0 (1 standard drink = 0.6 oz pur e alcohol) Sex and Gender Information Value Date Recorded Sex Assigned at Not on file 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
--- OUTSIDE RECORDS SUMMARY | 2024-09-07 19:24 | XMS_ITS | Encounter Summary ---
Author Organization [facility] Address [address] [address] Care Team Providers Care Slot Router Name Role Phone Jhonatan Bellamy MD Primary Care Provider +1- [phone] Encounter Details Date Type Department Care Team (Late st Contact Info) Description 07/05/2017 Telephone [facility] [address] [phone] Abelardo Petit MD 6810 [facility] [address] [address] Social History Tobacco Use Types Packs/Day Years Used Date Smoking Tobacco: Never Smokeless Tobacco: Former Alcohol Use Standard Drinks/Week Comments No 0 (1 standard drink = 0.6 oz pur e alcohol) Sex and Gender Information Value Date Recorded Sex Assigned at Not on file 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 ENING MACHINE OPERATOR documented in this encounter Plan of Treatment Not on file documented as of this encounter Visit Diagnoses Not on filedocumented in this encounter Care Teams Slot Router Relationship Specialty Start Date End Date Maleonelh, Jhonatan E., MD [address] [place] [address] PCP - General 03/25/15 04/16/18 documented as of this encounter
--- OUTSIDE RECORDS SUMMARY | 2024-09-07 19:24 | XMS_ITS | Encounter Summary ---
Author Organization [facility] Address [address] [address] Care Team Providers Care Supervisor Crack Off Name Role Phone Jhonatan Bellamy MD Primary Care Provider +1- [phone] Encounter Details Date Type Department Care Team (Late st Contact Info) Description 05/05/2017 Telephone [facility] [address] [address] Abelardo Petit MD 6810 [facility] [address] [address] Social History Tobacco Use Types Packs/Day Years Used Date Smoking Tobacco: Never Smokeless Tobacco: Former Alcohol Use Standard Drinks/Week Comments No 0 (1 standard drink = 0.6 oz pur e alcohol) Sex and Gender Information Value Date Recorded Sex Assigned at Not on file 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
--- OUTSIDE RECORDS SUMMARY | 2024-09-07 19:24 | XMS_ITS | Encounter Summary ---
Author Organization [facility] Address [address] [address] Care Team Providers Care Policy Checker Name Role Phone Jhonatan Bellamy MD Primary Care Provider +1- [phone] Encounter Details Date Type Department Care Team (Late st Contact Info) Description 06/14/2017 Telephone [facility] [address] [address] Abelardo Petit MD [address] [facility] [address] [address] Social History Tobacco Use Types Packs/Day Years Used Date Smoking Tobacco: Never Smokeless Tobacco: Former Alcohol Use Standard Drinks/Week Comments No 0 (1 standard drink = 0.6 oz pur e alcohol) Sex and Gender Information Value Date Recorded Sex Assigned at Not on file 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
--- OUTSIDE RECORDS SUMMARY | 2024-09-07 19:24 | XMS_ITS | Encounter Summary ---
Author Organization [facility] Address [address] [address] Care Team Providers Care Health Program Specialist Name Role Phone Jhonatan Bellamy MD Primary Care Provider +1- [phone] Encounter Details Date Type Department Care Team (Late st Contact Info) Description 05/03/2017 Telephone [facility] [address] [address] Myrna Easton NP [address] [address] Social History Tobacco Use Types Packs/Day Years Used Date Smoking Tobacco: Never Assessed Sex and Gender Information Value Date Recorded Sex Assigned at Not on file Legal 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 Pt also asked about chest tightness which he has had from time to time that reminds him of the discomfort he had withhis MT, but not near as severe. Patient said [...] CDT Pt ws taking Uloric before his MT, asked if it's OK to take . Told him I thought it should be Ok, but will double check with POLICE AIDE. documented in this encounter Plan of Treatment Not on file documented as of this encounter Visit Diagnoses Not on filedocumented in this encounter Care Teams Health Program Specialist Relationship Specialty Start Date End Date Jhonatan Bellamy MD [address] [facility] [place] [address] PCP - General 03/25/15 04/16/18 documented as of this encounter
--- OUTSIDE RECORDS SUMMARY | 2024-09-07 19:24 | XMS_ITS | Encounter Summary ---
Author Organization [facility] Medical Group Address [address] [address] Care Team Providers Care Business Office Coordinator Name Role Phone Jhonatan Bellamy MD Primary Care Provider +1- [phone] Encounter Details Date Type Department Care Team (Late st Contact Info) Description 01/22/2018 Telephone [facility] [address] [address] Abelardo Petit MD 69[address] [facility] [address] [address] Social History Tobacco Use Types Packs/Day Years Used Date Smoking Tobacco: Never Smokeless Tobacco: Former Alcohol Use Standard Drinks/Week Comments No 0 (1 standard drink = 0.6 oz pur e alcohol) Sex and Gender Information Value Date Recorded Sex Assigned at Not on file 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 Please cb [phone] documented in this encounter Plan of Treatment Not on file documented as of this encounter Visit Diagnoses Not on filedocumented in this encounter Care Teams Business Office Coordinator Relationship Specialty Start Date End Date Jhonatan Bellamy [place] [address] PCP - General 03/25/15 04/16/18 documented as of this encounter
--- OUTSIDE RECORDS SUMMARY | 2024-09-07 19:24 | XMS_ITS | Encounter Summary ---
Author Organization [facility] Medical Group Address [address] [address] Care Team Providers Care Natural Resource Technician Name Role Phone Jhonatan Bellamy MD Primary Care Provider +1- [phone] Encounter Details Date Type Department Care Team (Late st Contact Info) Description 09/07/2017 Telephone [facility] [address] [place] [address] Carrington Weeks MD [address] [place] [address] Social History Tobacco Use Types Packs/Day Years Used Date Smoking Tobacco: Never Smokeless Tobacco: Former Alcohol Use Standard Drinks/Week Comments No 0 (1 standard drink = 0.6 oz pur e alcohol) Sex and Gender Information Value Date Recorded Sex Assigned at Not on file 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 He wanted to make an appointment to discuss being released to go back to work without restrictions. Scheduled patient with Dr. Petit for 09/13/2017 at 9 am. ICAL EDUCATION TEACHER documented in this encounter Plan of Treatment Not on file documented as of this encounter Visit Diagnoses Not on filedocumented in this encounter Care Teams Natural Resource Technician Relationship Specialty Start Date End Date Jhonatan Bellamy MD [address] [place] [address] PCP - General 03/25/15 04/16/18 documented as of this encounter
--- OUTSIDE RECORDS SUMMARY | 2024-09-07 19:24 | XMS_ITS | Encounter Summary ---
Author Organization [facility] Medical Group Address [address] [facility] [address] [place] [address] Care Team Providers Care Caustic Plant Worker Name Role Phone Jhonatan Bellamy MD Primary Care Provider [phone]- [phone] Reason for Visit * Reason Comments Coronary Artery Disease Chronic Kidney Disease one mo f/u Encounter Details Date Type Department Care Team (Late st Contact Info) Description 12/14/2017 11:45 AM CDT Office Visit [facility] [address] [address] Abelardo Petit MD [address] [facility] [id number] 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 He underwent catheterization in 5 of was found to have high-grade stenosis in the distal right coronary artery bridging over the origin of the senior adults director lateral branch. He also had diffuse [...] so he can pursue this with his state attorney. 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
--- OUTSIDE RECORDS SUMMARY | 2024-09-07 19:24 | XMS_ITS | Encounter Summary ---
Author Organization [facility] Healthcare Address [address] [place] [address] Care Team Providers Care Pediatric Speech Therapist Name Role Phone Jhonatan Bellamy MD Primary Care Provider +1- [phone] Encounter Details Date Type Department Care Team (Latest Contact Info) Description 09/19/2017 1:57 PM RN CASE MGR - 09/19/2017 7:29 PM RN CASE MGR Hospital Encounter [facility] Emergency Department [address] [place] [address] Refugio Nieves MD PhD [address] [facility] [address] [place] [address] Discharge Disposition: Discharge to home or self care Social History Tobacco Use Types Packs/Day Years Used Date Smoking Tobacco: Never Smokeless Tobacco: Former Alcohol Use Standard Drinks/Week Comments No 0 (1 standard drink = 0.6 oz pur e alcohol) Sex and Gender Information Value Date Recorded Sex Assigned at Not on file Legal Sex Male 3:42 AM RN CASE MGR Gender Identity Not on file Sexual Orientation Not on file documented as of this encounter Medications at Time of Discharge aspirin 81 mg enteric coated tabletIndications: Myocardial Reinfarction Prevention Take 1 tablet (81 mg total) by mouth daily 11/07/2013 nitroglycerin (NITROSTAT) 0.4 mg SL tabletIndications: Coronary artery disease involving te-moak coronary artery of te-moak heart, angina presence unspecified Place 1 tablet [...] Comments GLUCOSE POC Routine 09/19/2017 4:06 PM RN CASE MGR GLUCOSE POC Routine 09/19/2017 3:00 PM RN CASE MGR DISCHARGE LABORATORY CUMULATIVE REPORT 09/19/2017 12:00 AM RN CASE MGR documented in this encounter Results * (ABNORMAL) Glucose POC (09/19/2017 4:06 PM RN CASE MGR) [facility] Glucose, POC 301(H) 70 - 199 mg/dL ALESSANDRA COLE Comment: Interpretive Data Glucose is assumed to be non-fasting. Fasting Glucose reference ranges are: 0 - 150 years: ??70 mg/dL - 99 mg/dL Current interpretive data was last revised on 2014. Glucose comment 1 RN/MD Notified ALESSANDRA COLE Blood specimen (specimen) 09/19/2017 4:06 PM RN CASE MGR 09/19/2017 4:06 PM RN CASE MGR Narrative ALESSANDRA COLE - 09/19/2017 4:11 PM RN CASE MGR us Refugio Nieves MD PhD POINT OF CARE TEST OR DERABLES Final Result ALESSANDRA CARRIONWCH [address] [facility] [address] * (ABNORMAL) Glucose POC (09/19/2017 3:00 PM RN CASE MGR) Glucose, POC 407(C) 70 - 199 mg/dL ALESSANDRA COLE Comment: Interpretive Data Glucose is assumed to be non-fasting. Fasting Glucose reference ranges are: 0 - 150 years: ??70 mg/dL - 99 mg/dL Current interpretive data was last revised on 2014. Glucose comment 1 RN/MD Notified ALESSANDRA COLE Blood specimen (specimen) 09/19/2017 3:00 PM RN CASE MGR 09/19/2017 3:00 PM RN CASE MGR Narrative ALESSANDRA KELSEY - 09/19/2017 3:01 PM RN CASE MGR us Refugio Nieves MD PhD POINT OF CARE TEST OR DERABLES Final Result ALESSANDRA CARRIONWCH [address] [facility]. [place] [address] * DISCHARGE LABORATORY CUMULATIVE REPORT (09/19/2017 12:00 AM RN CASE MGR) Narrative 09/19/2017 12:00 AM RN CASE MGR Ordered by an unspecified provider. us Historical Provider LAB BLOOD ORDERABLES Ann Marie l Result documented in this encounter Visit Diagnoses Not on filedocumented in this encounter Care Teams Pediatric Speech Therapist Relationship Specialty Start Date End Date Jhonatan Bellamy MD [address] [place], [place] [id number] PCP - General 03/25/15 04/16/18 documented as of this encounter
--- OUTSIDE RECORDS SUMMARY | 2024-09-07 19:24 | XMS_ITS | Encounter Summary ---
Author Organization [facility] Medical Group Address [address] [facility] [address] [place] [address] Care Team Providers Care Barrel Stave Inspector Name Role Phone Jhonatan Bellamy MD Primary Care Provider [phone]- [phone] Pedro Lakhani MD Primary Care Provider Eugenia Hughes MD Primary Care Provider +1- [phone] Aditya Castro MD Primary Care Provider [phone] Encounter Details Date Type Department Care Team (Late st Contact Info) Description 06/26/2017 Orders Only [facility] Medical Group Cardiology [address] [facility] [address] [place] [address] Provider, MD Zev [address] [place] [address] Social History Tobacco Use Types Packs/Day Years Used Date Smoking Tobacco: Never Smokeless Tobacco: Former Alcohol Use Standard Drinks/Week Comments No 0 (1 standard drink = 0.6 oz pur e alcohol) Sex and Gender Information Value Date Recorded Sex Assigned at Not on file Legal 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 Gender Identity Not on file Sexual [...] on filedocumented in this encounter Care Teams Barrel Stave Inspector Relationship Specialty Start Date End Date Jhonatan Bellamy MD [address] [place] [address] PCP - General 03/25/15 04/16/18 Pedro Lakhani MD [address] [place] [address] PCP - General Family Practice 04/17/18 04/18/18 Eugenia Hughes MD [address] [place] [address] PCP - General Family Practice 04/19/18 10/16/19 Aditya Castro MD [address] [facility] [place] [address] PCP - General 10/17/19 documented as of this encounter
--- OUTSIDE RECORDS SUMMARY | 2024-09-07 19:24 | XMS_ITS | Encounter Summary ---
Author Organization [facility] Medical Group Address [address] [facility] [address] [place] [address] Care Team Providers Care Layer Up Name Role Phone Eugenia Hughes MD Primary Care Provider [phone]- [phone] Encounter Details Date Type Department Care Team (Late st Contact Info) Description 09/09/[address] 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
--- OUTSIDE RECORDS SUMMARY | 2024-09-07 19:24 | XMS_ITS | Encounter Summary ---
Author Organization [facility] Address [address] [place] [address] Phone Care Team Providers Care Pharmaceutical Laboratory Technician Name Role Phone Jhonatan Bellamy MD Primary Care Provider [phone]- [phone] Encounter Details Date Type Department Care Team (Late st Contact Info) Description 03/22/2018 Orders Only [facility] Rheumatology [address] [facility] Advanced Medicine 5th [place] [address] [place] [address] Karina Johnson MD [address] [place], [place] [id number] Social History Tobacco Use Types Packs/Day Years Used Date Smoking Tobacco: Never Smokeless Tobacco: Former Alcohol Use Standard Drinks/Week Comments No 0 (1 standard drink = 0.6 oz pur e alcohol) Sex and Gender Information Value Date Recorded Sex Assigned at Not on file Legal 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
--- OUTSIDE RECORDS SUMMARY | 2024-09-07 19:24 | XMS_ITS | Encounter Summary ---
Author Organization [facility] Medical Group Address [address] [address] Care Team Providers Care Poundmaster Name Role Phone Jhonatan Bellamy MD Primary Care Provider +1- [phone] Encounter Details Date Type Department Care Team (Late st Contact Info) Description 05/31/2017 Telephone [facility] [address] [address] Abelardo Petit MD [address] [facility] [address] [address] Social History Tobacco Use Types Packs/Day Years Used Date Smoking Tobacco: Never Smokeless Tobacco: Former Alcohol Use Standard Drinks/Week Comments No 0 (1 standard drink = 0.6 oz pur e alcohol) Sex and Gender Information Value Date Recorded Sex Assigned at Not on file 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 Had patient give the phone number for Marcelino To who is handling the case for pt Contact for Marcelino is [phone] . He wants documentation of patient's medical condition. Send all records, including early May office note. Form ws faxed previously ,refaxed. documented in this encounter Plan of Treatment Not on file documented as of this encounter Visit Diagnoses Not on filedocumented in this encounter Care Teams Poundmaster Relationship Specialty Start Date End Date Jhonatan Bellamy MD [address] [place], [place] [id number] PCP - General 03/25/15 04/16/18 documented as of this encounter
--- OUTSIDE RECORDS SUMMARY | 2024-09-07 19:24 | XMS_ITS | Encounter Summary ---
Author Organization [facility] Medical Group Address [address] [address] Care Team Providers Care Tray Setter Name Role Phone Jhonatan Bellamy MD Primary Care Provider +1- [phone] Encounter Details Date Type Department Care Team (Late st Contact Info) Description 11/09/2017 Telephone [facility] [address] [address] Abelardo Petit MD [address] [facility] [address] [address] Social History Tobacco Use Types Packs/Day Years Used Date Smoking Tobacco: Never Smokeless Tobacco: Former Alcohol Use Standard Drinks/Week Comments No 0 (1 standard drink = 0.6 oz pur e alcohol) Sex and Gender Information Value Date Recorded Sex Assigned at Not on file 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 This patient was seen this morning in the hospital at [facility]. He was admitted with some symptoms of shortness of breath and chest pain there were no new apparent cardiac problems and he is being discharged later today he does have significant renal failure with a creatinine of 2.9. His handbag finisher should be in charge of managing his [...] at his job and his contacted a employment attorney. * Telephone Encounter - Gaby Anderson [...] ER with worsening symptoms. Advised contact his handbag finisher as well. We will call back with our recommendations but he may end up getting a quicker response from handbag finisher. Heverbalizes understanding. * Telephone Encounter - Angelita Mcgee - 11/09/2017 12:20 PM CDT Patient called office he is experiencing pain in chest and trouble breathing He states for a couple days documented in this encounter Plan of Treatment Not on file documented as of this encounter Visit Diagnoses Not on filedocumented in this encounter Care Teams Tray Setter Relationship Specialty Start Date End Date Jhonatan Bellamy MD [address] [place] [address] PCP - General 03/25/15 04/16/18 documented as of this encounter
--- OUTSIDE RECORDS SUMMARY | 2024-09-07 19:25 | XMS_ITS | Encounter Summary ---
Author Organization 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 No Client Account Number and Description: Byron Castillo MD LAB BLOOD ORDERABLES Ann Marie l Result Performing Organization Address [facility] de Phone Number HISTORICAL RESULTS * (ABNORMAL) Serum uric acid (02/03/2015 10:35 AM CDT) Uric acid 11.3(H) 3.0 - 8.0 mg/dl HISTORICAL RESULTS Serum 02/03/2015 10:3 5 AM CDT Narrative HISTORICAL RESULTS - 02/03/2015 12:32 PM CDT Client / Account bill? No Client Account Number and Description: Byron Castillo MD LAB BLOOD ORDERABLES Ann Marie l Result Performing Organization Address [facility] Co de Phone Number HISTORICAL RESULTS * [...] factor quantitative (02/03/2015 10:35 AM CDT) Pathologist [facility] Rheumatoid factor, quant <10 0 - 15 IUnits/ml HISTORICAL RESULTS Serum 02/03/2015 10:3 5 AM CDT Narrative HISTORICAL RESULTS - 02/04/2015 3:38 AM CDT Client / Account bill? No Client Account Number and Description: Byron Castillo MD LAB BLOOD ORDERABLES Ann Marie l Result Performing Organization Address City/[facility] Co de Phone Number HISTORICAL RESULTS * Serum cyclic citrullinated peptide IgG 3rd generation (02/03/2015 10:35 AM CDT) Pathologist [facility] CCP3 IgG <15.6 0.0 - 19.0 units HISTORICAL RESULTS Comment: Interpretive Data The following results were obtained with the [employer]er[employer] Quanta Lite CCP3 IgG ABRAHAM. ??Anti-CCP values [...]
--- OUTSIDE RECORDS SUMMARY | 2024-09-07 19:25 | XMS_ITS | Encounter Summary ---
Author Organization [facility] Care Team Providers Care Test Baker Name Role Phone Jhonatan Bellamy MD Primary Care Provider +1- [phone] Encounter Details Date Type Department Care Team (Late st Contact Info) Description 06/04/2016 12:36 PM CDT - 06/04/2016 4:36 PM CDT [facility] [address] [facility] [address] [place] [id number] Olecranon bursitis of left elbow Social History Tobacco Use Types Packs/Day Years Used Date Smoking Tobacco: Never Assessed Sex and Gender Information Value Date Recorded Sex Assigned at Not on file 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
--- OUTSIDE RECORDS SUMMARY | 2024-09-07 19:25 | XMS_ITS | Encounter Summary ---
Author Organization 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 Dictating: Ana Chao [...] Primary care physician equals Jhonatan Bellamy M.D. Accounts Payable Supervisor equals Jonnie. MEDICATIONS: 1. Lantus 68 units [...] M.D. 11/06/2013 12:21 P Anurag Ojeda M.D. [facility] #[id number] Editing MT: TD: 11/05/2013 21:38:00 cc: Dorys [...] ORDERABL ES Final Result Performing Organization Address [facility] de Phone Number HISTORICAL RESULTS * (ABNORMAL) Blood glucose, POC (11/07/2013 8:49 AM CDT) Glucose, POC, bld 388(H) 70 - 199 mg/dl HISTORICAL RESULTS Blood specimen (specimen) 11/07/2013 8:49 AM CDT us Anurag Ojeda MD PhD LAB BLOOD ORDERABL ES Final Result Performing Organization Address [facility] de Phone Number HISTORICAL RESULTS * (ABNORMAL) Blood glucose, POC (11/07/2013 7:14 AM CDT) Glucose, POC, bld 328(H) 70 - 199 mg/dl HISTORICAL RESULTS Blood specimen (specimen) 11/07/2013 7:14 AM CDT us Anurag Ojeda MD PhD LAB BLOOD ORDERABL ES Final Result Performing Organization Address [facility] de Phone Number HISTORICAL RESULTS * Discharge Laboratory Cumulative Report (11/07/2013 12:00 AM CDT) 11/07/2013 Narrative HISTORICAL RESULTS - 11/07/2013 3:25 PM CDT ?[facility] ?Department of Laboratories ? [address] [facility] [address] ? [place] [address] Patient Name: ??JUVENAL GARVIN [facility] Rec Number: [id number] Fin Number: ?[id number] Date: ?1970 Sex/Age: ? Male 43 years Admit Date: ?11/05/2013 Discharge Date: 11/07/2013 Doctor: ?[facility] , [address] Facility: ?[facility] Location: ?[id number] Chart Printed: 11/07/2013 15:25 ?? * Abnormal [...] TESTING children were not included. ??(Diabetes Care 31:0836-4827, 2008). ??The eAG is not equivalent to [...] for the diagnosis of myocardial infarction (Third Blair Definition of Myocardial Infarction. ??J Am Elena Cardiol 2012;60:1581-98). Current interpretive data was last revised on 13. ?URINALYSIS ?Macroscopic ?Test: Color ? Clarity ??Specific [place] ??pH ? Reference: [Yellow] ??[Clear] ??[1.003-1.030] ? [...] ?Test: Neut Pct Auto ??Lymph Pct Auto ??Greer Pct Auto ? Reference: [38.7-74.5] ?[20.0-54.3] ? [4.3-13.5] ? Units: % ?% ? % 11/05/2013 ?? 09:37:56 ?? 41.7 ? 41.2 ?12.4 ? AUTOMATED WHITE CELL DIFFERENTIAL ?Test: Eos Pct Auto ??Baso Pct Auto ??Neut Abs Auto ? Reference: [0.0-6.0] ? [0.0-3.0] ?[1.8-6.6] ? Units: % ? % ?K/cumm 11/05/2013 ?? 09:37:56 ?? 3.8 ? 0.9 ?2.4 ?Test: Lymph Abs Auto ??Greer Abs Auto ??Eos Abs Auto ? Reference: [...] updated copy of the Tool Book at [email or web address] Current Interpretive Data was last [...] Ann Marie l Result Performing Organization Address [facility] de Phone Number HISTORICAL RESULTS * (ABNORMAL) Blood glucose, POC (11/06/2013 9:27 PM CDT) Glucose, POC, bld 402(H) 70 - 199 mg/dl HISTORICAL RESULTS Blood specimen (specimen) 11/06/2013 9:27 PM CDT Anurag Ojeda MD PhD LAB BLOOD ORDERABL ES Final Result Performing Organization Address [facility] de Phone Number HISTORICAL RESULTS * (ABNORMAL) Blood glucose, POC (11/06/2013 5:22 PM CDT) Glucose, POC, bld 388(H) 70 - 199 mg/dl HISTORICAL RESULTS Blood specimen (specimen) 11/06/2013 5:22 PM CDT Anurag Ojeda MD PhD LAB BLOOD ORDERABL ES Final Result Performing Organization Address [facility] de Phone Number HISTORICAL RESULTS * (ABNORMAL) Blood glucose, POC (11/06/2013 11:41 AM CDT) Glucose, POC, bld 373(H) 70 - 199 mg/dl HISTORICAL RESULTS Blood specimen (specimen) 11/06/2013 11:41 AM CDT Anuarg Ojeda MD PhD LAB BLOOD ORDERABL ES Final Result Performing Organization Address [facility] de Phone Number HISTORICAL RESULTS * (ABNORMAL) Blood glucose, POC (11/06/2013 7:26 AM CDT) Glucose, POC, bld 304(H) 70 - 199 mg/dl HISTORICAL RESULTS Blood specimen (specimen) 11/06/2013 7:26 AM CDT Anurag Ojeda MD PhD LAB BLOOD ORDERABL ES Final Result Performing Organization Address [facility] de Phone Number HISTORICAL RESULTS * Serum troponin I (11/06/2013 6:12 AM CDT) Troponin I <0.03 0.00 - 0.03 ng/ml HISTORICAL RESULTS Comment: Interpretive Data Serial determinations are recommended for the diagnosis of myocardial infarction (Third Blair Definition of Myocardial Infarction. ??J Am Elena Cardiol 2012;60:1581-98). Current interpretive data was last revised on 13. Serum 11/06/2013 6:12 AM CDT Ana Chao IV, MD PhD LAB BLOOD ORDERA BLES Final Result Performing Organization Address [facility] de Phone Number HISTORICAL RESULTS * (ABNORMAL) Blood glucose, POC (11/06/2013 2:06 AM CDT) Glucose, POC, bld 329(H) 70 - 199 mg/dl HISTORICAL RESULTS Blood specimen (specimen) 11/06/2013 2:06 AM CDT us Anurag Ojeda MD PhD LAB BLOOD ORDERABL ES Final Result Performing Organization Address [facility] Co de Phone Number HISTORICAL RESULTS * Blood B-type natriuretic peptide (BNP) (11/05/2013 10:11 PM CDT) BNP 13 0 - 100 pg/ml HISTORICAL RESULTS Blood specimen (specimen) 11/05/2013 10:11 PM CDT Ana Cruz MD LAB BLOOD ORDERABLES Fi nal Result Performing Organization Address [facility] Co de Phone Number HISTORICAL RESULTS * [...] and children were not included. ??(Diabetes Care 31:5628-1710, 2008). ??The eAG is not equivalent to a fasting glucose. Blood specimen (specimen) 11/05/2013 10:11 PM CDT Ana Cruz MD LAB BLOOD ORDERABLES Fi nal Result Performing Organization Address [facility] de Phone Number HISTORICAL RESULTS * Serum troponin I (11/05/2013 9:47 PM CDT) [facility] Troponin I <0.03 0.00 - 0.03 ng/ml HISTORICAL RESULTS Comment: Interpretive Data Serial determinations are recommended for the diagnosis of myocardial infarction (Third Blair Definition of Myocardial Infarction. ??J Am Elena Cardiol 2012;60:1581-98). Current interpretive data was last revised on 13. Serum 11/05/2013 9:47 PM CDT Ana Chao IV, MD PhD LAB BLOOD ORDERA BLES Final Result Performing Organization Address [facility] Co de Phone Number HISTORICAL RESULTS * (ABNORMAL) Blood glucose, POC (11/05/2013 9:16 PM CDT) Pathologist [facility] Glucose, POC, bld 397(H) 70 - 199 mg/dl HISTORICAL RESULTS Blood specimen (specimen) 11/05/2013 9:16 PM CDT Anurag Ojeda MD PhD LAB BLOOD ORDERABL ES Final Result Performing Organization Address [facility] de Phone Number HISTORICAL RESULTS * (ABNORMAL) Blood glucose, POC (11/05/2013 7:01 PM CDT) Glucose, POC, bld 331(H) 70 - 199 mg/dl HISTORICAL RESULTS Blood specimen (specimen) 11/05/2013 7:01 PM CDT us Ana Cruz MD LAB BLOOD ORDERABLES Fi nal Result Performing Organization Address [facility] Co de Phone Number HISTORICAL RESULTS * (ABNORMAL) Blood glucose, POC (11/05/2013 2:36 PM CDT) Glucose, POC, bld 203(H) 70 - 199 mg/dl HISTORICAL RESULTS Gluc, com 1, bld RN Notified HISTORICAL RESULTS Blood specimen (specimen) 11/05/2013 2:36 PM CDT us Historical Provider LAB BLOOD ORDERABLES Ann Marie l Result Performing Organization Address [facility] de Phone Number HISTORICAL RESULTS * (ABNORMAL) Serum iron profile (11/05/2013 2:30 PM CDT) [facility] Iron 32(L) 45 - 160 mcg/dl HISTORICAL RESULTS UIBC 210 mcg/dl HISTORICAL RESULTS TIBC 242 220 - 420 mcg/dl HISTORICAL RESULTS Transferrin saturation 13(L) 20 - 50 % HISTORICAL RESULTS Serum 11/05/2013 2:30 PM CDT us Kerry Martinez MD LAB BLOOD ORDERABLES Final Result Performing Organization Address [facility] de Phone Number HISTORICAL RESULTS * Serum troponin I (11/05/2013 2:30 PM CDT) Pathologist [facility] Troponin I <0.03 0.00 - 0.03 ng/ml HISTORICAL RESULTS Comment: Interpretive Data Serial determinations are recommended for the diagnosis of myocardial infarction (Third Blair Definition of Myocardial Infarction. ??J Am Elena Cardiol 2012;60:1581-98). Current interpretive data was last revised on 13. Serum 11/05/2013 2:30 PM CDT Kerry Martinez MD LAB BLOOD ORDERABLES Final Result Performing Organization Address [facility] de Phone Number HISTORICAL RESULTS * Serum ferritin (11/05/2013 2:30 PM CDT) Ferritin 110 22 - 322 ng/ml HISTORICAL RESULTS Serum 11/05/2013 2:30 PM CDT Result [facility] Kerry Martinez MD LAB BLOOD ORDERABLES Final Result Performing Organization Address [facility] de Phone Number HISTORICAL [...] ORDERABLES Fi nal Result Performing Organization Address [facility] de Phone Number HISTORICAL [...] CDT Ana Cruz MD LAB BLOOD ORDERABLES [facility] Result Performing Organization Address [facility] de Phone Number HISTORICAL [...] CDT Ana Cruz MD LAB BLOOD ORDERABLES [facility] Result Performing Organization Address [facility] de Phone Number HISTORICAL [...] ORDERABLES Fi nal Result Performing Organization Address [facility] Co de Phone Number HISTORICAL RESULTS * Serum troponin I (11/05/2013 9:37 AM CDT) Troponin I <0.03 0.00 - 0.03 ng/ml HISTORICAL RESULTS Comment: Interpretive Data Serial determinations are recommended for the diagnosis of myocardial infarction (Third Blair Definition of Myocardial Infarction. ??J Am Elena Cardiol 2012;60:1581-98). Current interpretive data was last revised on 13. Serum 11/05/2013 9:37 AM CDT Ana Cruz MD LAB BLOOD ORDERABLES nal Result Performing Organization Address [facility] de Phone Number HISTORICAL [...] updated copy of the Tool Book at [email or web address] Current Interpretive Data was last revised 2011. [...] agrees with it. ACC# ??Date Time ??Exam [id number] Nov 05, 2013 09:15:00 [id number] Chest 2 views Frontl & Lat EXAMINATION: ?? CHEST 2 VIEWS ?? IMPRESSION: No prior examination is available for comparison. The lungs are clear. No pneumothorax or pleural effusion. Heart size and mediastinal contour are normal. ?? Requested By: ANA CRUZ M.D. Dictated By: ?? ALBNIA BATISTA M.D. ??on Nov 05 2013 ??9:37A This document has been electronically signed by: MIKEY MURPHY M.D. on Nov 05 2013 10:39A Procedure Note Provider, MD Zev - 01/26/2017 Dorys CABRERA M.D. FINAL REPORT The radiology attending physician has personally reviewed this study, and has reviewed and/or edited this written report and agrees with it. ACC# Date Time Exam [id number] Nov 05, 2013 09:15:00 [id number] Chest 2 views Frontl & Lat EXAMINATION: [...] MURPHY M.D. on Nov 05 2013 10:39A [facility] Provider IMG XR PROCEDURES Final R esult * ELECTROCARDIOGRAPHY (ECG) (11/05/2013) Narrative 11/05/2013 Ordered by an unspecified provider. [facility] Provider ECG ORDERABLES Final Res ult * ELECTROCARDIOGRAPHY (ECG) (11/05/2013) Narrative 11/05/2013 Ordered by an unspecified provider. [facility] Provider ECG ORDERABLES Final Res ult * ELECTROCARDIOGRAPHY (ECG) (11/05/2013) Narrative 11/05/2013 Ordered by an unspecified provider. [facility] Provider ECG ORDERABLES Final Res ult documented [...]
--- OUTSIDE RECORDS SUMMARY | 2024-09-07 19:25 | XMS_ITS | Encounter Summary ---
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
--- OUTSIDE RECORDS SUMMARY | 2024-09-07 19:25 | XMS_ITS | Encounter Summary ---
Author Organization [facility] Facility Care Team Providers Care Director Franchise Sales Name Role Phone Jhonaatn Bellamy MD Primary Care Provider [phone] Encounter Details Date Type Department Care Team (Late st Contact Info) Description 03/26/2015 6:57 PM CDT - 03/26/2015 11:59 PM CDT Hospital Encounter [facility] Raisa Degroot MD [address] [address] Yamilet Valerio PA [address] [place] [address] Arthropathy Social History Tobacco Use Types Packs/Day Years Used Date Smoking Tobacco: Never Assessed Sex and Gender Information Value Date Recorded Sex Assigned at Not on file 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 Gender Identity Not on file Sexual [...] COMPLEMENT Routine 03/26/2015 5:00 PM CDT SERUM [id number]-3-[id number] I, IGA Routine 03/26/2015 5:00 PM CDT SERUM [id number]-3-[id number] I IGM Routine 03/26/2015 5:00 PM CDT SERUM ANTINUCLEAR AB (SHAWN) Routine 03/26/2015 5:00 PM CDT SERUM ANTI-EXTRACTABLE NUCLEAR AG (JOSE ENRIQUE), SS-B AB Routine 03/26/2015 5:00 PM CDT SERUM ANTI-EXTRACTABLE NUCLEAR AG (JOSE ENRIQUE), SS-A AB Routine 03/26/2015 5:00 PM CDT SERUM ANTI-EXTRACTABLE NUCLEAR AG (JOSE ENRIQUE), SM/ENTRY LEVEL INSTALLATION TECHNICIAN AB Routine 03/26/2015 5:00 PM CDT [...] Serum 03/26/2015 5:00 PM CDT Yamilet Valerio ND LAB BLOOD ORDERABLES Fin al Result Performing Organization Address [facility] [[email or web address]] de Phone Number HISTORICAL RESULTS * Blood HLA B-27 DNA typing (03/26/2015 5:00 PM CDT) Pathologist [facility] HLA-B27 ag B27 is Negative HISTORICAL RESULTS Comment: HLA oligotyping is determined utilizing polymerase chain reaction technology. ??Low resolution typing is performed using sequence specific primers (SSP) and Luminex based r-SSO. ??High resolution technology is performed using River Sequenced Based Typing (SBT). ??SSP, Luminex rSSO and SBT are designated IVD by the U.S. Food and Drug Administration. Mark Cabrera Ph.D. Director, HLA Laboratory. Miscellaneous 03/26/2015 5:0 0 PM CDT [facility] BLOOD ORDERABLES Fin al Result Performing Organization Address [facility] [[email or web address]] de Phone Number HISTORICAL RESULTS * Serum Hepatitis B core ab (03/26/2015 5:00 PM CDT) Pathologist [facility] HBV core ab Negative Negative HISTORIC AL RESULTS Serum 03/26/2015 5:00 PM CDT Result [facility] Talisha [facility] LAB BLOOD ORDERABLES Fin al Result Performing Organization Address [facility] [[email or web address]] de Phone Number HISTORICAL RESULTS * Serum anti-extractable nuclear ag (JOSE ENRIQUE), SS-B ab (03/26/2015 5:00 PM CDT) Pathologist [facility] Anti-JOSE ENRIQUE, SS-B <1.0 NEG <1.0NEG AI HISTORICAL RESULTS Comment: Test performed at [facility] [address] [place], [place] ??[address] ANA REYES DO,MPH Serum 03/26/2015 5:00 PM CDT Yamilet Valerio ND LAB BLOOD ORDERABLES Fin al Result Performing Organization Address [facility] [[email or web address]] de Phone Number HISTORICAL RESULTS * Serum anti-extractable nuclear ag (JOSE ENRIQUE), SS-A ab (03/26/2015 5:00 PM CDT) Anti-JOSE ENRIQUE, SS-A <1.0 NEG <1.0NEG AI HISTORICAL RESULTS Comment: Test performed at [employer] [id number] [place], [place] ??[address] ANA REYES DO,MPH Serum 03/26/2015 5:00 PM CDT Yamilet Valerio ND LAB BLOOD ORDERABLES Fin al Result Performing Organization Address [place]/[facility] [[email or web address]] de Phone Number HISTORICAL RESULTS * Serum antinuclear ab (SHAWN) (03/26/2015 5:00 PM CDT) Pathologist [facility] SHAWN, qual Negative NEGATIVE HISTORICAL RESULTS Comment: Test performed at [employer] [address] ??[phone] ANA REYES DO,MPH Serum 03/26/2015 5:00 PM CDT Yamilet Valerio ND LAB BLOOD ORDERABLES Fin al Result Performing Organization Address [email or web address] de Phone Number HISTORICAL RESULTS * Serum [...] ??The following results were obtained with the Mobile Accord QUANTLiteTM IgG and IgM III ABRAHAM. ??Cardiolipin [...] ??The following results were obtained with the Mobile Accord QUANTLiteTM IgA III ABRAHAM. ??Caridolipin IgA values [...] Serum 03/26/2015 5:00 PM CDT Yamilet Valerio ND LAB BLOOD ORDERABLES Fin al Result Performing Organization Address [email or web address] de Phone Number HISTORICAL RESULTS * Serum anti-extractable nuclear ag (JOSE ENRIQUE), SM/ENTRY LEVEL INSTALLATION TECHNICIAN ab (03/26/2015 5:00 PM CDT) Pathologist [facility] Anti-JOSE ENRIQUE, SM <1.0 NEG <1.0NEG AI HISTORICAL RESULTS JOSE ENRIQUE, SM/ENTRY LEVEL INSTALLATION TECHNICIAN Ab <1.0 NEG <1.0NEG AI HISTORICAL RESULTS Comment: Test performed at [employer] [address] [place], [place] ??[address] ANA REYES DO,MPH Serum 03/26/2015 5:00 PM CDT Yamilet Valerio ND LAB BLOOD ORDERABLES Fin al Result Performing Organization Address [email or web address] de Phone Number HISTORICAL RESULTS * Serum Trinidad-1 ab (03/26/2015 5:00 PM CDT) Pathologist [facility] Anti-TRINIDAD-1 <1.0 NEG <1.0NEG AI HISTORICAL RESULTS Comment: Test performed at [facility] [employer] [address] ??[phone] ANA REYES DO,MPH Serum 03/26/2015 5:00 PM CDT Yamilet Woodall Iman ND LAB BLOOD ORDERABLES Fin al Result Performing Organization Address [facility] de Phone Number HISTORICAL RESULTS * Serum double-stranded DNA ab (03/26/2015 5:00 PM CDT) [facility] Anti-double stranded DNA, quant 2 IUnits/ml HISTORIC AL RESULTS Comment: IU/mL ? Interpretation ? < or = 4 ?Negative ? 5-9 ? Indeterminate ? > or = 10 ?? Positive Test performed at [employer] [address] ??[phone] ANA REYES DO,MPH Serum 03/26/2015 5:00 PM CDT Yamilet Woodall Iman ND LAB BLOOD ORDERABLES Fin al Result Performing Organization Address [facility] de Phone Number HISTORICAL RESULTS * Serum uluz-3-uqdjgtmqrwvh I IgM (03/26/2015 5:00 PM CDT) [facility] Beta-2 glycoprotein I, IgM <4.0 <10.0(Nega tive) Units/ml HISTORICAL RESULTS Beta-2 glycoprotein I, IgG <4.0 <10.0(Nega tive) Units/ml HISTORICAL RESULTS Serum 03/26/2015 5:00 PM CDT Yamilet Shuklaricky ND LAB BLOOD ORDERABLES Fin al Result Performing Organization Address [email or web address] de Phone Number HISTORICAL RESULTS * (ABNORMAL) Serum angiotensin-converting enzyme (NICOLÁS) (03/26/2015 5:00 PM CDT) NICOLÁS 8(L) 10 - 55 Units/L HISTORICAL RESULTS Serum 03/26/2015 5:00 PM CDT Result [facility] Yamilet Hernándezeaston ND LAB BLOOD ORDERABLES Fin al Result Performing Organization Address [email or web address] de Phone Number HISTORICAL RESULTS * Plasma [...] updated copy of the Tool Book at [email or web address] Current Interpretive Data was last [...] ORDERABLES Fin al Result Performing Organization Address [email or web address] de Phone Number HISTORICAL RESULTS * Serum Wrrf-4-fiehuehaijfd I, IgA (03/26/2015 5:00 PM CDT) [facility] Beta-2 glycoprotein I, IgA <4.0 <10.0(Nega tive) Units/ml HISTORICAL RESULTS Serum 03/26/2015 5:00 PM CDT Result [facility] Yamilet Calixchase ND LAB BLOOD ORDERABLES Fin al Result Performing Organization Address [email or web address] de Phone Number HISTORICAL RESULTS * Serum rheumatoid factor (03/26/2015 5:00 PM CDT) Pathologist [facility] Rheumatoid factor, quant 10 <14 IUnits/ml HISTORICAL RESULTS Comment: Test performed at [employer] [address] ??[phone] ANA REYES DO,MPH Serum 03/26/2015 5:00 PM CDT Result [facility] LAB BLOOD ORDERABLES Fin al Result Performing Organization Address [place]/[facility] Phone Number HISTORICAL RESULTS * Serum cyclic citrullinated peptide IgG 3rd generation (03/26/2015 5:00 PM CDT) [facility] CCP3 IgG <15.6 0.0 - 19.0 units HISTORICAL RESULTS Comment: Interpretive Data The following results were obtained with the Mobile Accord Quanta Lite CCP3 IgG ABRAHAM. ??Anti-CCP values [...] Serum 03/26/2015 5:00 PM CDT Yamilet Valerio ND LAB BLOOD ORDERABLES Fin al Result Performing Organization Address [email or web address] de Phone Number HISTORICAL RESULTS * (ABNORMAL) Serum complement (03/26/2015 5:00 PM CDT) Complement hemolytic 161(H) 63 - 145 HISTORICAL RESULTS Serum 03/26/2015 5:00 PM CDT Yamilet Valerio ND LAB BLOOD ORDERABLES Fin al Result Performing Organization Address [email or web address] de Phone Number HISTORICAL RESULTS * (ABNORMAL) Blood erythrocyte sedimentation rate (ESR) (03/26/2015 5:00 PM CDT) Pathologist [facility] Erythrocyte sedimentation rate 16.0(H) 0.0 - 10.0 mm/hr HISTORICAL RESULTS Blood specimen (specimen) 03/26/2015 5:00 PM CDT Yamilet Valerio ND LAB BLOOD ORDERABLES Fin al Result Performing Organization Address [facility] de Phone Number HISTORICAL RESULTS * [...] Blood specimen (specimen) 03/26/2015 5:00 PM CDT [facility] Talisha Hernándeznyricky ND LAB BLOOD ORDERABLES Fin al Result Performing Organization Address [email or web address] de Phone Number HISTORICAL RESULTS * (ABNORMAL) [...] HISTORICAL RESULTS Urine 03/26/2015 5:00 PM CDT [facility] Talisha Valerio ND LAB BLOOD ORDERABLES Fin al Result Performing Organization Address [email or web address] de Phone Number HISTORICAL RESULTS * (ABNORMAL) Urine microscopy (03/26/2015 5:00 PM CDT) RBC, ur 3 - 5(A) 0 - 2 /hpf HISTORICAL RESULTS Bacteria, ur Trace /hpf HISTORI DOMINICK RESULTS Epithelial cells, squamous, ur 3 - 5 /lpf HISTORICAL RESULTS Mucus, ur Trace /lpf HISTORICAL RESULTS Hyaline casts Too numerous to count. /lpf HISTORICAL RESULTS Urine 03/26/2015 5:00 PM CDT Result [facility] Yamilet Calixchase ND LAB BLOOD ORDERABLES Fin al Result Performing Organization Address [facility] de Phone Number HISTORICAL RESULTS * Serum Hepatitis B surface ag (03/26/2015 5:00 PM CDT) HBV surface ag Non-Reacti ve Non-Reacti ve HISTORICAL RESULTS Serum 03/26/2015 5:00 PM CDT Result [facility] Yamilet Shuklaricky ND LAB BLOOD ORDERABLES Fin al Result Performing Organization Address [facility] de Phone Number HISTORICAL RESULTS * Serum Hepatitis C ab (03/26/2015 5:00 PM CDT) HCV ab Non-Reacti ve Non-Reacti ve HISTORICAL RESULTS Serum 03/26/2015 5:00 PM CDT Result [facility] Yamilet Shuklaricky ND LAB BLOOD ORDERABLES Fin al Result Performing Organization Address [facility] de Phone Number HISTORICAL RESULTS * [...] 09/27/2011, C-Reactive Protein testing is performed at [facility] Laboratory. The Reference Range has changed. Plasma 03/26/2015 5:00 PM CDT Yamilet GRACE LAB BLOOD ORDERABLES Fin al Result HISTORICAL RESULTS * Plasma creatine kinase (CK) (03/26/2015 5:00 PM CDT) CK 297 49 - 397 IUnits/L HISTORICAL RESULTS Plasma 03/26/2015 5:00 PM CDT Yamilet Shuklaricky [facility] LAB BLOOD ORDERABLES Fin al Result Performing Organization Address [facility] Phone Number HISTORICAL RESULTS * (ABNORMAL) Plasma complement C4 (03/26/2015 5:00 PM CDT) Complement C4 78(H) 18 - 55 mg/dl HISTORICAL RESULTS Comment:Please Note: As of N 2011, the reference range has changed. Plasma 03/26/2015 5:00 PM CDT Yamilet Calixchase [facility] LAB BLOOD ORDERABLES Fin al Result Performing Organization Address [facility] Phone Number HISTORICAL RESULTS * (ABNORMAL) Plasma uric acid (03/26/2015 5:00 PM CDT) Uric acid 12.3(H) 3.5 - 8.5 mg/dl HISTORICAL RESULTS Plasma 03/26/2015 5:00 PM CDT Result [facility] Yamilet Shuklaricky [facility] LAB BLOOD ORDERABLES Fin al Result Performing Organization Address [facility] Phone Number HISTORICAL RESULTS * Plasma complement C3 (03/26/2015 5:00 PM CDT) Complement C3 140 79 - 152 mg/dl HISTORICAL RESULTS Plasma 03/26/2015 5:00 PM CDT Result [facility] Yamilet Woodall Iman [facility] LAB BLOOD ORDERABLES Fin al Result Performing Organization Address [email or web address] de Phone Number HISTORICAL RESULTS * Blood direct antiglobulin test (03/26/2015 5:00 PM CDT) Maribel, direct, IgG Negative HISTORICAL RESULTS Maribel, direct, complement Negative HISTORICAL RESULTS Blood specimen (specimen) 03/26/2015 5:00 PM CDT Result [facility] Yamilet Woodall Iman [facility] LAB BLOOD ORDERABLES Fin al Result HISTORICAL RESULTS * DISCHARGE LABORATORY CUMULATIVE REPORT (03/26/2015) Narrative 03/26/2015 Ordered by an unspecified provider. us Historical Provider LAB BLOOD ORDERABLES Ann Marie l Result documented in this encounter Visit Diagnoses Diagnosis Arthropathy Unspecified arthropathy, site unspecified documented in this encounter Care Teams Director Franchise Sales Relationship Specialty Start Date End Date Jhonatan Bellamy MD [employer] [place], [place] [id number] PCP - General 03/25/15 04/16/18 documented as of this encounter
--- OUTSIDE RECORDS SUMMARY | 2024-09-07 19:25 | XMS_ITS | Encounter Summary ---
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
--- OUTSIDE RECORDS SUMMARY | 2024-09-07 19:25 | XMS_ITS | Encounter Summary ---
Author Organization [facility] Facility Care Team Providers Care Sewer Pipe Offbearer Name Role Phone Unavailable Primary Care Provider Unavailabl e Encounter Details Date Type Department Care Team (Late st Contact Info) Description 11/20/2014 9:06 PM CDT - 11/21/2014 7:54 AM CDT Hospital Encounter [facility] Abelardo Garcia MD [address] [facility] [address] [place] [address] Infective arthritis, hand (HCC); Type 2 or unspecified type diabetes mellitus; Hypertensive kidney disease with chronic kidney disease, stage 1-4; Chronic kidney disease; Encounter for long-term (current) use of other medications Social History Tobacco Use Types Packs/Day Years Used Date Smoking Tobacco: Never Assessed Sex and Gender Information Value Date Recorded Sex Assigned at Not on file 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 ACC# ??Date Time ??Exam [id number] Jun 04, 2016 14:19:00 [id number] Elbow minimum 3 views L EXAMINATION: ?Left [...] represent olecranon bursitis. Requested By: MIRANDA BARILLAS PYROTECHNIC ASSEMBLER Dictated By: ?? CASSIDY BARRAGAN M.D. ??on Jun 04 2016 ??4:09P This document has been electronically signed by: TONYA MILLER M.D. on Jun 04 2016 ??4:27P [id number] Procedure Note Provider, MD Zev - 12/27/2016 TONYA MILLER M.D. CASSIDY BARRAGAN M.D. FINAL REPORT The radiology attending physician has personally reviewed this study, and has reviewed and/or edited this written report and agrees with it. ACC# Date Time Exam [id number] Jun 04, 2016 14:19:00 [id number] Elbow minimum 3 views L EXAMINATION: Left [...] represent olecranon bursitis. Requested By: MIRANDA BARILLAS PYROTECHNIC ASSEMBLER Dictated By: CASSIDY BARRAGAN M.D. on Jun 04 2016 4:09P This document has been electronically signed by: TONYA MILLER M.D. on Jun 04 2016 4:27P [id number] Historical Provider IMG XR PROCEDURES Final R esult * DISCHARGE LABORATORY CUMULATIVE REPORT (06/04/2016) Narrative 06/04/2016 Ordered by an unspecified provider. Historical Provider LAB BLOOD ORDERABLES Ann Marie l Result * Serum C-reactive protein (11/21/2014 3:03 AM CDT) C-RP 9.1 0.0 - 9.9 mg/L HISTORICAL RESULTS Serum 11/21/2014 3:03 AM CDT Kerry Chang MD LAB BLOOD ORDERABLES Final Result Performing Organization Address [facility] de Phone Number HISTORICAL RESULTS * (ABNORMAL) Plasma basic metabolic panel (11/21/2014 3:03 AM CDT) Pathologist [facility] Sodium 137 135 - 145 mmol/L HISTORICAL [...] ORDERABLES Final Result Performing Organization Address [facility] de Phone Number HISTORICAL RESULTS * (ABNORMAL) Blood cell count (CBC) (11/21/2014 3:03 AM CDT) Pathologist [facility] WBC 7.1 3.8 - 9.8 K/cumm HISTORICAL [...] ORDERABLES Final Result Performing Organization Address [facility] de Phone Number HISTORICAL RESULTS * (ABNORMAL) Blood erythrocyte sedimentation rate (ESR) (11/21/2014 3:03 AM CDT) Erythrocyte sedimentation rate 72.0(H) 0.0 - 12.0 mm/hr HISTORICAL RESULTS Blood specimen (specimen) 11/21/2014 3:03 AM CDT us Kerry Chang MD LAB BLOOD ORDERABLES Final Result Performing Organization Address [facility] de Phone Number HISTORICAL RESULTS * Discharge Laboratory Cumulative Report (11/21/2014 12:00 AM CDT) 11/21/2014 Narrative HISTORICAL RESULTS - 11/21/2014 3:20 PM CDT ?[facility] ?Department of Laboratories ? [address] [facility] [address] ? [place] [address] Patient Name: ??JUVENAL GARVIN [facility] Rec Number: [id number] Fin Number: ?[id number] Date: ?1970 Sex/Age: ? Male 44 years Admit Date: ?11/20/2014 Discharge Date: 11/21/2014 Doctor: ?Abelardo Garcia Facility: ?[facility] Location: ?EMS-21 Chart Printed: 11/21/2014 15:20 ?? [...] ?Test: Neut Pct Auto ??Lymph Pct Auto ??Lavaca Pct Auto ? Reference: [38.7-74.5] ?[20.0-54.3] ? [4.3-13.5] ? Units: % ?% ? % 11/21/2014 ?? 03:03:00 ?? 43.7 ? 39.2 ?9.7 ?Test: Eos Pct Auto ??Baso Pct Auto ??Neut Abs Auto ? Reference: [0.0-6.0] ? [0.0-3.0] ?[1.8-6.6] ? Units: % ? % ?K/cumm 11/21/2014 ?? 03:03:00 ?? 6.3 ??H ?1.1 ?3.1 ?Test: Lymph Abs Auto ??Lavaca Abs Auto ??Eos Abs Auto ? Reference: [...] Blood beta-hydroxybutyrate (11/20/2014 9:18 PM CDT) Pathologist [facility] Beta-hydroxybu tyrate, sr 0.2 0.0 - 0.5 mmol/L HISTORICAL RESULTS Blood specimen (specimen) 11/20/2014 9:18 PM CDT Abelardo Garcia MD LAB BLOOD ORDERABLES Final Result Performing Organization Address [facility] de Phone Number HISTORICAL RESULTS * (ABNORMAL) Blood glucose, POC (11/20/2014 9:17 PM CDT) Pathologist [facility] Glucose, POC, bld 254(H) 70 - 199 mg/dl HISTORICAL RESULTS Blood specimen (specimen) 11/20/2014 9:17 PM CDT Historical Provider LAB BLOOD ORDERABLES Ann Marie l Result Performing Organization Address [facility] de Phone Number HISTORICAL RESULTS documented in this encounter Visit Diagnoses Diagnosis Infective arthritis, hand (HCC) Unspecified infective arthritis, hand Type 2 or unspecified type diabetes mellitus Hypertensive kidney disease with chronic kidney disease, stage 1-4 Chronic kidney disease Chronic kidney disease, unspecified Encounter for long-term (current) use of other medications documented in this encounter
--- OUTSIDE RECORDS SUMMARY | 2024-09-07 19:25 | XMS_ITS ---
Author Organization [facility] Address [address] [place] [address] Care Team Providers Care Social Services Coordinator Name Role Phone Aditya Castro MD Primary Care Provider [phone] Alondra Lambert RN Unavailable [phone] Shannon Brock MD, [place] P. Unavailable [phone] Leandro Reyes MD Unavailable [phone] Transplant Episode Kidney Candidate [facility] ([place], [place]) [facility] Evaluation began on 05/10/2024 Marked as Active on 05/10/2024 Reason: Evaluation - Standard Kidney CoordinatorAlondra Lambert RN Fax: N/A Email: N/A Scores Score Value Updated Exceptions/Reas ons CPRA Not available EPTS (Calc) 78 09/07/2024 Care Team Name Role Phone Fax Email Alondra Lambert RN Kidney Coordinator [phone] N/A N/A Melany Kelly Primary Felt Carbonizer N/A N/A N/A Chris Richard Milk Powder Grinder N/A N/A N/A Events Pre-Transplant Referred: 03/06/2024 Evaluation began: 05/10/2024 Dialysis History Dialysis History Start End Type Comments Center 10/16/2019 Peritoneal [facility] Information Center Phone Fax Address [facility] [phone] [address] [facility] [address] [facility] [address]
--- OUTSIDE RECORDS SUMMARY | 2024-09-07 19:25 | XMS_ITS | Encounter Summary ---
Author Organization 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
[2024-09-07 21:34] LABS: Glucose Point of Care 70 mg/dl (65-105)
[2024-09-07] MEDS: cycloSPORINE 0.4 ML OPHTH SOLUTION 1 DROP EACH EYE (21:39)
[2024-09-07 23:20] LABS: Glucose Point of Care 117 mg/dl (65-105)
--- OUTSIDE RECORDS SUMMARY | 2024-09-07 23:23 | XMS_ITS | Encounter Summary ---
Author Organization [facility] Address [address] [facility] [place] [address] Care Team Providers Care R And D Lab Technician Name Role Phone Aditya Castro Primary Care Provider Unavailab le Encounter Details Date Type Department Care Team (Late st Contact Info) Description 03/20/2020 Orders Only [facility] TRANSPLANT [address] [place] [address] Anali Merino RN Pre-transplant evaluation for kidney [...] transplant documented in this encounter Care Teams R And D Lab Technician Relationship Specialty Start Date End Date Aditya Castro Update Information PCP - General 03/06/19 documented as of this encounter
--- OUTSIDE RECORDS SUMMARY | 2024-09-07 23:23 | XMS_ITS | Encounter Summary ---
Author Organization [facility] Address [address] [facility] [place] [address] Care Team Providers Care Prepress Technician Name Role Phone Aditya Castro Primary Care Provider Unavailab le Encounter Details Date Type Department Care Team (Late st Contact Info) Description 07/13/2020 3:00 PM INSURANCE AGENTS SUPERVISOR Office Visit [facility] [place] [phone] Leandro Reyes MD [address] , [address] [place] [address] Pre-transplant evaluation for kidney transplant (Primary Dx); Hypertensive chronic kidney disease with stage 5 chronic kidney disease or end stage renal disease (HCC); Type 2 diabetes mellitus with diabetic chronic kidney disease, unspecified CKD stage, unspecified whether alf insulin use (HCC); End stage renal disease [...] not included. Transplant Nephrology Attending Juvenal Daigle [phone] Chief Complaint: Renal Transplant Evaluation Referring [...] to 500 but now he and his hr specialist have better control of his blood sugars. His last Hgb a1c 7.7 He has had HTN since 2017 He has multiple stents in his RCA, which is a dominant artery.He presented with an CT and was foundto have RCA occlusion. A [...] on anticoagulation for 2 years until the human intelligence stopped it when he started plavix. Can [...] Priority: Not Prioritized Juvenal Daigle 1970 Referring [place] Machine Operator: Leandro Reyes Dialysis Info: Type: PD Time: 160 days (11/05/2019) Blood Type: A Body mass index is 37.8 kg/m??. ALERTS Bomb Squad Commander: Vashti Lizama NP Past Medical History: Diagnosis Date ??? Anemia ??? Arthritis ??? Arthropathy osteo. back and knees see Dr. Norton ??? CAD (coronary artery disease) ??? Community acquired pneumonia 2017 [facility] hospitalized with double pneumonia ??? Congestive heart failure ??? Coronary artery disease ??? Diabetes mellitus type 1 teens dx when he was 13. Insulin since he was dx. Insulin pump currently with dexacom. Vashti Lizama NPis hr specialist. ??? DM (diabetes mellitus) TYPE 1 ??? DVT (deep venous thrombosis) 2017 [facility] ??? ESRD on peritoneal dialysis ??? Gout ??? History of blood transfusion [address] ??? HLD (hyperlipidemia) ??? HTN (hypertension) ??? Hypercholesteremia 5 years on med ??? Hypertension 30's on medications. ??? Kidney disease ??? Myocardial infarction 2017 [facility]. Stent x1 placed. ??? Neuropathy [...] file Gets together: Not on file Attends gnosticism service: Not on file Active member of [...] 07/02/2020: Committee Discussion Details: Pt brought to [facility] to discuss his cardiac workup. [...] SW, education ??? 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[place] heart with stable angina pectoris 11/22/2018 Priority: Not Prioritized Past Medical History: Past Medical History: Diagnosis Date ??? Anemia ??? Arthritis ??? Arthropathy osteo. back and knees see Dr. Norton ??? CAD (coronary artery disease) ??? Community acquired pneumonia 2017 [facility] hospitalized with double pneumonia ??? Congestive heart failure ??? Coronary artery disease ??? Diabetes mellitus type 1 teens dx when he was 13. Insulin since he was dx. Insulin pump currently with dexacom. Vashti Vo hr specialist. ??? DM (diabetes mellitus) TYPE 1 ??? DVT (deep venous thrombosis) 2017 [facility] ??? ESRD on peritoneal dialysis ??? Gout ??? History of blood transfusion [address] ??? HLD (hyperlipidemia) ??? HTN (hypertension) ??? Hypercholesteremia 5 years on med ??? Hypertension 30's on medications. ??? Kidney disease ??? Myocardial infarction 2017 [facility]. Stent x1 placed. ??? Neuropathy [...] file Gets together: Not on file Attends gnosticism service: Not on file Active member of [...] 12 hours as needed ??? epoetin (PROCRIT) 96865 UNIT/ML injection Inject subcutaneously every 14 days ??? ezetimibe (ZETIA) 10 MG tablet Take 10 mg by mouth once daily ??? febuxostat (ULORIC) 40 MG tablet Take 40 mg by mouth ??? ferrous sulfate EC (FERROUS SULFATE) 324 (65 Fe) MG tablet Take 324 mg by mouth once daily ??? fluticasone propionate (FLONASE) 50 MCG/ACT nasal spray [place] 1 spray into each nostril once daily [...] test strip ??? vitamin D, ergocalciferol, (DRISDOL) 24332 units capsule Take 50,000 Units by mouth [...] results for input(s): MAGNESIUM in the last 79989 hours. Recent Labs Component Name 05/14/20 1018 04/26/19 1242 WBC 5.0 4.9 RBC 3.45* 3.40* HGB 10.7* 10.0* HCT 31.1* 29.5* MCV 90.1 86.8 MCHC 34.4 33.9 PLTCOUNT 232 243 NEUTPCT 54.8 57.8 NEUTABS 2.7 2.8 Recent Labs Component Name 05/14/20 1018 PTHINTACT 653.3* No results for input(s): [id number] in the last 26803 hours. Recent Labs Component Name 05/14/20 1018 [...] addressed. Cassia Cano MD 07/13/2020 3:37 PM RANCE AGENTS SUPERVISOR documented in this encounter Plan of [...] kidney disease, unspecified CKD stage, unspecified whether alf insulin use (HCC) End stage renal disease (HCC) End stage renal disease documented in this encounter Care Teams Prepress Technician Relationship Specialty Start Date End Date Aditya Castro Update Information PCP - General 03/06/19 documented as of this encounter
--- OUTSIDE RECORDS SUMMARY | 2024-09-07 23:23 | XMS_ITS | Encounter Summary ---
Author Organization [facility] Address [address] [facility] [place] [address] Care Team Providers Care Production Helper Name Role Phone Aditya Castro Primary Care Provider Unavailab le Reason for Visit * Reason Comments Kidney Transplant Evaluation Encounter Details Date Type Department Care Team (Late st Contact Info) Description 07/10/2020 Telephone [facility] TRANSPLANT [address] [place] [phone] Girish Farmer Kidney Transplant Evaluation Social History [...] filedocumented in this encounter Care Teams Production Helper Relationship Specialty Start Date End Date Aditya Castro Update Information PCP - General 03/06/19 documented as of this encounter
--- OUTSIDE RECORDS SUMMARY | 2024-09-07 23:23 | XMS_ITS | Encounter Summary ---
Author Organization [facility] Address [address] [place] [address] Care Team Providers Care Land Use Planner Name Role Phone Aditya Castro Primary Care Provider Unavailab le Encounter Details Date Type Department Care Team (Late st Contact Info) Description 11/13/2020 Orders Only [facility] - COVID Vaccine [address] [place] [phone] Carrington Leos MD [address] [place] [address] Need for vaccination Social History Tobacco Use [...] disease documented in this encounter Care Teams Land Use Planner Relationship Specialty Start Date End Date Aditya Castro Update Information PCP - General 03/06/19 documented as of this encounter
--- OUTSIDE RECORDS SUMMARY | 2024-09-07 23:23 | XMS_ITS | Patient Health Summary ---
Author Organization [facility] Address [address] [place] [address] Care Team Providers Care Health Policy Analyst Name Role Phone Aditya Castro Primary Care Provider Unavailab le Note from [facility],non-owned Affiliates and Associated Physician Practices is amultiple site organization consisting of ambulatory clinics and hospital sitesin [place], [place], [place] and [place]. This disclosure is being madepursuant to the Care Everywhere program and may not contain all information available regarding this patient. Last updated 18.[facility] Allergies * Allopurinol(Other) -High Criticality * [...] as needed * vitamin D, ergocalciferol, (DRISDOL) 82753 units capsule(Started 02/13/2019) Take 50,000 Units by [...] propionate (FLONASE) 50 MCG/ACT nasal spray(Started 04/24/2019) [place] 1 spray into each nostril once daily * epoetin (PROCRIT) 79717 UNIT/ML injection Inject subcutaneously every 14 days [...] Comments Blood Pressure 140/60 07/13/2020 1:30 PM DUMP GROUNDS CHECKER Pulse 65 07/13/2020 1:30 PM DUMP GROUNDS CHECKER Temperature 36.1 ??C (97 ??F) 07/13/2020 1:30 PM DUMP GROUNDS CHECKER Respiratory Rate 20 07/13/2020 1:30 PM DUMP GROUNDS CHECKER Oxygen Saturation 95% 07/13/2020 1:30 PM DUMP GROUNDS CHECKER Inhaled Oxygen Concentration - - Weight 134.3 kg (296 lb) 07/13/2020 1:30 PM DUMP GROUNDS CHECKER Height 176.5 cm (5' 9.5 ) 07/13/2020 1:30 PM DUMP GROUNDS CHECKER Body Mass Index 43.08 07/13/2020 1:30 PM DUMP GROUNDS CHECKER Procedures * CARDIAC EKG ORDER(Performed 05/18/2020) [...] Pre-transplant evaluation for kidney transplant * PROTHROMBIN [id number] PANEL(Performed 05/14/2020) Performed for Pre-transplant evaluation for [...] cause, unspecified chronicity, unspecified site, [place], unspecifiedtype ([facility]) * URIC ACID BLOOD(Performed 04/26/2019) Performed for Gout, unspecified cause, unspecified chronicity, unspecified site, [place], unspecifiedtype ([facility]) * CARDIAC PROCEDURE ORDER(Performed 11/27/2018) * CARDIAC [...] complication, with long-term current use of insulin ([facility]) * BASIC METABOLIC PANEL (CALCIUM TOTAL)(Performed 11/23/2018) Performed for 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, unspecified vessel or lesion type ([facility]) * GLUCOSE - POINT OF CARE(Performed 11/22/2018) * GLUCOSE - POINT OF CARE(Performed 11/22/2018) * GLUCOSE - POINT OF CARE(Performed 11/22/2018) * GLUCOSE - POINT OF CARE(Performed 11/22/2018) * CARDIAC CATH(Performed 11/22/2018) * GLUCOSE - POINT OF CARE(Performed 11/22/2018) * BASIC METABOLIC PANEL (CALCIUM TOTAL)(Performed 11/22/2018) Performed for 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 Dictated by Ash Moreira MD (president trust company). I, Dr. HANNAH SPENCE have personally [...] calcifications. Dictated by Ash Moreira MD (president trust company). I, Dr. HANNAH SPENCE have personally [...] Resolution DRB1-1 04 05/29/2020 7:59 AM CDT [facility] ([facility]) DR DQ Low Resolution DRB1-2 11 05/29/2020 7:59 AM CDT [facility] ([facility]) DR DQ Low Resolution DQB1-1 03 (DQ7) 05/29/2020 7:59 AM CDT [facility] ([facility]) DR DQ Low Resolution DQB1-2 03 (DQ8) 05/29/2020 7:59 AM CDT [facility] ([facility]) DR DQ Low Resolution DRB3-1 02 05/29/2020 7:59 AM CDT [facility] ([facility]) DR DQ Low Resolution DRB3-2 Negative 05/29/2020 7:59 AM CDT [facility] ([facility]) DR DQ Low Resolution DRB4-1 01 05/29/2020 7:59 AM CDT [facility] ([facility]) DR DQ Low Resolution DRB4-2 Negative 05/29/2020 7:59 AM CDT [facility] ([facility]) DR DQ Low Resolution DRB5-1 Negative 05/29/2020 7:59 AM CDT [facility] ([facility]) DR DQ Low Resolution DRB5-2 Negative 05/29/2020 7:59 AM CDT [facility] ([facility]) DR DQ Low Resolution Methodology SSOP 05/29/2020 7:59 AM CDT [facility] ([facility]) Comment DR DQ Low Resolution - 05/29/2020 7:59 AM CDT [facility] ([facility]) DR DQ Low Resolution test date 05/28/2020 05/29/2020 7:59 AM CDT [facility] ([facility]) Comment: This test was developed and [...] high complexity clinical laboratory testing. ??CLIA ID# [id number] Performed at: ??[facility], [address] @ [facility], [place] ??[phone] Barrel Lathe Operator: Jarrod Chin MD, Blood BLOOD SPECIMEN / Unknown Lab Venipuncture / Unknown 05/14/2020 10:18 AM CDT 05/14/2020 10:52 AM CDT Glenny Martin MD LAB - BLOOD BAN K ORDERABLES [facility] ([facility]) [address] [place] [address], [facility] * HLA TYPING DNA LOW RESOLUTION A,B,C (05/14/2020 10:18 AM CDT) ABC DNA A1 03 05/29/2020 7:59 AM CDT [facility] ([facility]) ABC DNA A2 29 05/29/2020 7:59 AM CDT [facility] ([facility]) ABC DNA B1 07 05/29/2020 7:59 AM CDT [facility] ([facility]) ABC DNA B2 44 05/29/2020 7:59 AM CDT [facility] ([facility]) ABC DNA BW1 6 05/29/2020 7:59 AM CDT [facility] ([facility]) ABC DNA BW2 4 05/29/2020 7:59 AM CDT [facility] ([facility]) ABC DNA C1 07 05/29/2020 7:59 AM CDT [facility] ([facility]) ABC DNA C2 - 05/29/2020 7:59 AM CDT [facility] ([facility]) ABC DNA Methodology SSOP 05/29 7:59 AM CDT [facility] ([facility]) Comment ABC DNA - 0 7:59 AM CDT [facility] ([facility]) ABC DNA Test Date 0 05/29/2020 7:59 AM CDT [facility] ([facility]) Comment: This test was developed and [...] high complexity clinical laboratory testing. ??CLIA ID# [id number] Performed at: ??[facility], [address] @ [place], [place] ??[phone] Barrel Lathe Operator: Jarrod Chin MD, Blood BLOOD SPECIMEN / Unknown Lab Venipuncture / Unknown 05/14/2020 10:18 AM CDT 05/14/2020 10:52 AM CDT Glenny Martin MD LAB - BLOOD BAN K ORDERABLES Performing Organization Address City/[facility]/ZIP Co de Phone Number [facility] ([facility]) [address] [place] [address], [place] * HLA ANTIBODY SCREEN LUM CLASS 2 ID (05/14/2020 10:18 AM CDT) Pathologist [facility] % PRA 90 05/29/2020 7:59 AM CDT [facility] ([facility]) Class 2 LUM Specificity - 05/29/2020 7:59 AM CDT [facility] ([facility]) Class 2 LUM Test Date 0 05/29/2020 7:59 AM CDT [facility] ([facility]) Comment: This test was developed and [...] high complexity clinical laboratory testing. ??CLIA ID# [id number] Performed at: ??[facility], [address] @ [place], [place] ??[phone] Barrel Lathe Operator: Jarrod Chin MD, Blood BLOOD SPECIMEN / Unknown Lab Venipuncture / Unknown 05/14/2020 10:18 AM CDT 05/14/2020 10:52 AM CDT Glenny Martin MD LAB - BLOOD BAN K ORDERABLES [facility] ([facility]) [address] [place] [address], [place] * HLA ANTIBODY SCREEN LUM CLASS 1 ID (05/14/2020 10:18 AM CDT) % PRA 4 05/29/2020 7:59 AM CDT [facility] ([facility]) Class 1 LUM Specificity - 05/29/2020 7:59 AM CDT [facility] ([facility]) Class 1 LUM Test Date 0 05/29/2020 7:59 AM CDT [facility] ([facility]) Comment: This test was developed and [...] high complexity clinical laboratory testing. ??CLIA ID# [id number] Performed at: ??[facility], [address] @ [place], [place] ??[phone] Barrel Lathe Operator: Jarrod Chin MD, Blood BLOOD SPECIMEN / Unknown Lab Venipuncture / Unknown 05/14/2020 10:18 AM CDT 05/14/2020 10:52 AM CDT Glenny Martin MD LAB - BLOOD BAN K ORDERABLES Performing Organization Address City/[facility]/ZIP Co de Phone Number [facility] ([facility]) [address] [place] [address], [place] * HIV-1 HIV-2 ANTIGEN/ANTIBODY (05/14/2020 10:18 AM CDT) HIV Antigen/Antibod y 1 & 2 Non-reacti ve Non-react bianca 05/14/2020 11:49 AM CDT [facility] Comment:Neither HIV-1 p24 An tigen nor HIV-1/HIV-2 Antibodies are detected. Blood BLOOD SPECIMEN / Unknown Lab Venipuncture / Unknown 05/14/2020 10:18 AM CDT 05/14/2020 10:57 AM CDT Glenny Martin MD LAB - HEMATOLOG Y ORDERABLES Performing Organization Address [facility] Co de Phone Number [address] [address], [facility] [phone] * CANNABINOID SCREEN BLOOD (05/14/2020 10:18 AM CDT) Marijuana Metabolites Negative 05/17/2020 12:06 AM CDT [facility] ([facility]) Comment:REFERENCE RANGE: thr shold: 5 ng/mL Specimen Type Comment 05/17/2020 12:06 AM CDT [facility] ([facility]) Comment: WHOLE BLOOD This specimen was screened by immunoassay at the thresholds listed above. Presumptive positive results have not been confirmed by an alternate method; results are intended for clinical medical purposes. Please contact the laboratory if confirmatory testing is desired. This test was developed and its performance characteristics determined by [facility]. It has not been cleared or approved by the Food and Drug Administration. Blood BLOOD SPECIMEN / Unknown Lab Venipuncture / Unknown 05/14/2020 10:18 AM CDT 05/14/2020 10:53 AM CDT Narrative [facility] ([facility]) - 05/17/2020 12:06 AM CDT Performed at: ??01 - [employer] [employer] [address] [place] [address] ??[phone] Barrel Lathe Operator: Radha Callahan [facility], Phone: ??[phone] Glenny Martin MD LAB - CHEMISTRY ORDERABLES Performing Organization Address [facility]/ZIP Co de Phone Number [facility] ([facility]) [address] [place] [address] * COCAINE METABOLITE QUANT (05/14/2020 10:18 AM CDT) Cocaine and Metabolite Blood <20 ng/mL 05/17/2020 11:07 PM CDT [facility] ([facility]) Comment: INTERPRETIVE INFORMATION: Cocaine Metabolite, ?Serum or Plasma, ?Quantitative Methodology: Quantitative Gas Chromatography- Mass Spectrometry Positive cutoff: 20 ng/mL ?? For medical purposes only; not valid for forensic use. The concentration value must be greater than or equal to the cutoff to be reported as positive. Interpretive questions should be directed to the laboratory. Test developed and characteristics determined by [facility]. See Compliance Statement B: [email or web address] Performed By: [facility] [address] [place] [address] [employer] Supervisor: Valerie Mast MD Blood BLOOD SPECIMEN / Unknown Lab Venipuncture / Unknown 05/14/2020 10:18 AM CDT 05/14/2020 10:55 AM CDT Glenny Martin MD LAB - CHEMISTRY ORDERABLES Performing Organization Address City/[facility] Co de Phone Number [facility] ([facility]) [address] [place] [address] * SYPHILIS ANTIBODY CASCADING REFLEX (05/14/2020 10:18 AM CDT) Treponema pallidum Antibody Non-react bianca Non-react bianca 05/14/2020 11:47 AM CDT [facility] Comment: No Laboratory evidence of syphilis infection. ?? Note: ??Circulating antibodies may be low or undetectable in early infection. ??If recent exposure is suspected, re-draw sample in 2-4 weeks and repeat testing. Blood BLOOD SPECIMEN / Unknown Lab Venipuncture / Unknown 05/14/2020 10:18 AM CDT 05/14/2020 10:55 AM CDT Glenny Martin MD LAB - SEROLOGY ORDERABLES Performing Organization Address City/[facility]/ZIP Co de Phone Number [address] [address], [place] [phone] * AMPHETAMINE BLOOD CONFIRMATION (05/14/2020 10:18 AM CDT) Amphetamines Confirmation <20 ng/mL 05/20/2020 12:29 PM CDT [facility] ([facility]) Comment: INTERPRETIVE INFORMATION: Amphetamines, Serum or ?Plasma, [...] laboratory. Test developed and characteristics determined by [facility]. See Compliance Statement B: [employer]/CS Methamphetamine Confirmation <20 ng/mL 05/20/2020 12:29 PM CDT [facility] ([facility]) MDA Confirmation <20 ng/mL 05/20/20 20 12:29 PM CDT [facility]) MDMA Confirm <20 ng/mL 05/20/2020 12:29 PM CDT [facility] ([facility]) MDEA Confirmation <20 ng/mL 020 12:29 PM CDT [facility]) Comment: Performed By: [facility] [address] [place] [address] Vegetable Farming Supervisor: Valerie Mast MD Blood BLOOD SPECIMEN / Unknown Lab Venipuncture / Unknown 05/14/2020 10:18 AM CDT 05/14/2020 10:57 AM CDT Glenny Martin MD LAB - CHEMISTRY ORDERABLES [facility] ([facility]) [address] [place] [address], [facility] * (ABNORMAL) PTH INTACT ([facility]) (05/14/2020 10:18 AM CDT) PTH Intact 653.3(H) 8.0 - 77.0 pg/mL 05/14/2020 11:34 AM CDT [facility] Blood BLOOD SPECIMEN / Unknown Lab Venipuncture / Unknown 05/14/2020 10:18 AM CDT 05/14/2020 10:55 AM CDT Glenny Martin MD LAB - CHEMISTRY ORDERABLES Performing Organization Address [facility]/ZIP Co de Phone Number [place] [address] [place] [address], [facility] [phone] * OPIATES BLOOD (05/14/2020 10:18 AM CDT) [facility] Opiates Screen Negative 05/17/2020 12:06 AM CDT [facility] ([facility]) Comment:REFERENCE RANGE: thr shold: 10 ng/mL Oxycodone Screen Negative 05/17/20 12:06 AM CDT [facility] ([facility]) Comment:REFERENCE RANGE: thr shold: 10 ng/mL Specimen Type Comment 05/17/2020 12:06 AM CDT [facility] ([facility]) Comment: WHOLE BLOOD This specimen was screened by immunoassay at the thresholds listed above. Presumptive positive results have not been confirmed by an alternate method; results are intended for clinical medical purposes. Please contact the laboratory if confirmatory testing is desired. This test was developed and its performance characteristics determined by [facility]. It has not been cleared or approved by the Food and Drug Administration. Blood BLOOD SPECIMEN / Unknown Lab Venipuncture / Unknown 05/14/2020 10:18 AM CDT 05/14/2020 10:53 AM CDT Narrative [facility] ([facility]) - 05/17/2020 12:06 AM CDT Performed at: ??01 - [facility] [employer] [address] [place] [address] ??[phone] Barrel Lathe Operator: Radha Callahan [facility], Phone: ??[phone] Glenny Martin MD LAB - CHEMISTRY ORDERABLES [facility] ([facility]) [address] [place] [address], [facility] * (ABNORMAL) URIC ACID BLOOD (05/14/2020 10:18 AM CDT) Only the most recent of2 resultswithin the time period is included. Uric Acid 8.4(H) 2.6 - 7.2 mg/dL 05/14/2020 11:41 AM CDT [facility] Blood BLOOD SPECIMEN / Unknown Lab Venipuncture / Unknown 05/14/2020 10:18 AM CDT 05/14/2020 10:55 AM CDT Glenny Martin MD LAB - CHEMISTRY ORDERABLES [facility] [address] [place] [address], [facility] [phone] * PROTHROMBIN [id number] PANEL (05/14/2020 10:18 AM CDT) Prothrombin L95689X Negative 05/21/2020 8:19 PM CDT [facility] ([facility]) Comment: Indication for testing: Assess genetic risk for thrombosis. NEGATIVE: The Factor II, prothrombin O50137B mutation, was not detected. ??Other causes of [...] Cui, Ph.D. 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 PATHOGENIC VARIANT TESTED: F2 c.*97G>A (A68009O). CLINICAL SENSITIVITY FOR VENOUS THROMBOSIS: Approximately 10 percent. METHODOLOGY: Polymerase chain reaction and fluorescence monitoring. ANALYTICAL SENSITIVITY AND SPECIFICITY: 99 percent. LIMITATIONS: Diagnostic errors can occur due to rare sequence variations. F2 gene variants, other than c.*97G>A (M52645M), will not be detected. This test was developed and its performance characteristics determined by [employer]. It has not been cleared or approved by the [place] Food and Drug Administration. This test was performed in a CLIA certified laboratory and is intended for clinical purposes. Counseling and informed consent are recommended for genetic testing. Consent forms are available online. Performed by [facility], [address] [place] [address] [email or web address], Valerie Mast MD, Lab. Director Source PT [id number] PCR Whole Blood 05/21/2020 8:19 PM CDT [facility]) Blood BLOOD SPECIMEN / Unknown Lab Venipuncture / Unknown 05/14/2020 10:18 AM CDT 05/14/2020 10:48 AM CDT Sourav Moscoso MD LAB - COAGULATION OR DERABLES [facility]) [address] * (ABNORMAL) PROTEIN S ANTIGEN (05/14/2020 10:18 AM CDT) [facility] Protein S Antigen Total 177(H) 60 - 150 % 05/16/2020 2:07 AM CDT [facility] ([facility]) Comment: This test was developed and its performance characteristics [facility]. It has not been cleared or approved by the Food and Drug Administration. Total Protein S Antigen is an acute phase reactant protein and can be elevated in inflammatory states. Protein S Free 179(H) 57 - 157 % 05/16/2020 2:07 AM CDT [facility] ([facility]) Comment: This test was developed and its performance characteristics determined by [facility]. It has not been cleared or approved by the Food and Drug Administration. Blood BLOOD SPECIMEN / Unknown Lab Venipuncture / Unknown 05/14/2020 10:18 AM CDT 05/14/2020 10:48 AM CDT Narrative [facility] ([facility]) - 05/16/2020 2:07 AM CDT Performed at: ??01 - [facility] ??[phone] Barrel Lathe Operator: Con Grimaldo MD, Phone: ??[phone] Sourav Moscoso MD LAB - COAGULATION OR DERABLES [facility]) [address] [place] [address] * STRONGYLOIDES ANTIBODY IGG (05/14/2020 10:18 AM CDT) Strongyloides Antibody IgG 0.2 <=0.9 IV 05/17/2020 10:58 PM CDT [facility] ([facility]) Comment: INTERPRETIVE INFORMATION: Strongyloides Ab, IgG by [...] also result in false-positive results. Performed By: [employer] [address] [place] [address] Vegetable Farming Supervisor: Valerie Mast MD Blood BLOOD SPECIMEN / Unknown Lab Venipuncture / Unknown 05/14/2020 10:18 AM CDT 05/14/2020 10:55 AM CDT Glenny Martin MD LAB - SEROLOGY ORDERABLES [facility]) [address] [place] [address], [facility] * FACTOR V LEIDEN MUTATION PANEL (05/14/2020 10:18 AM CDT) [facility] Factor V Leiden Source Whole Blood 05/21/2020 4:02 PM CDT [facility] ([facility]) Factor V Leiden PCR/FRET Negative 05/21/2020 4:02 PM CDT [facility] ([facility]) Comment: Indication for testing: Assess genetic risk for thrombosis. NEGATIVE: The factor V Leiden variant, c.1601G>A; p.[id number], was not detected. This does not exclude [...] function in the F5 gene variant c.1601G>A (p.Lyn798Ywz). Legacy nomenclature: [id number] (1691G>A) CLINICAL SENSITIVITY: 20-50 percent of individuals with an isolated VTE have the FVL variant. METHODOLOGY: Polymerase chain reaction and fluorescence monitoring. ANALYTICAL SENSITIVITY AND SPECIFICITY: 99 percent. LIMITATIONS: Diagnostic errors can occur due to rare sequence variations. F5 gene mutations, other than p.[id number], will not be detected. This test was developed and its performance characteristics determined by [employer]. It has not been cleared or approved by the US Food and Drug Administration. This test was performed in a CLIA certified laboratory and is intended for clinical purposes. Counseling and informed consent are recommended for genetic testing. Consent forms are available online. Performed by [facility], [address] [place] [id number] [email or web address], Valerie Mast MD, Lab. Director Blood BLOOD SPECIMEN / Unknown Lab Venipuncture / Unknown 05/14/2020 10:18 AM CDT 05/14/2020 10:49 AM CDT Sourav Moscoso MD LAB - COAGULATION OR DERABLES [facility] ([facility]) [address] * CARDIOLIPIN ANTIBODY IGM (05/14/2020 10:18 AM CDT) Cardiolipin Antibody IgM 0 0 - 12 MPL 05/17/2020 12:33 AM CDT [facility] ([facility]) Comment: INTERPRETIVE INFORMATION: Anti-Cardiolipin IgM 0-12 MPL: [...] other criteria phospholipid antibody tests. Performed By: [facility] [address] [place] [address] Vegetable Farm[employer] Supervisor: Valerie Mast MD Blood BLOOD SPECIMEN / Unknown Lab Venipuncture / Unknown 05/14/2020 10:18 AM CDT 05/14/2020 10:57 AM CDT Sourav Moscoso MD LAB - SEROLOGY ORDER ROVERTO [facility] ([facility]) [address] * CARDIOLIPIN ANTIBODY IGG (05/14/2020 10:18 AM CDT) Cardiolipin Antibody IgG 2 0 - 14 GPL 05/17/2020 12:32 AM CDT [facility] ([facility]) Comment: INTERPRETIVE INFORMATION: Anti-Cardiolipin IgG Ab 0-14 [...] other criteria phospholipid antibody tests. Performed By: [facility] [address] [place] [address] [employer] Farm[employer] Supervisor: Valerie Mast MD Blood BLOOD SPECIMEN / Unknown Lab Venipuncture / Unknown 05/14/2020 10:18 AM CDT 05/14/2020 10:58 AM CDT Sourav Moscoso MD LAB - SEROLOGY ORDER ROVERTO [facility]) [address] [place] [address], [facility] * CYTOMEGALOVIRUS ANTIBODY IGG BLOOD (05/14/2020 10:18 AM CDT) [facility] Cytomegalovirus Antibody IgG >10.00 U/mL 05/16/2020 6:28 PM CDT [facility] ([facility]) Comment: INTERPRETIVE INFORMATION: Cytomegalovirus Antibody, IgG ??0.59 [...] laboratory at the same time. Performed By: [facility] [address] [place] [address] [employer] Supervisor: Valerie Mast MD Blood BLOOD SPECIMEN / Unknown Lab Venipuncture / Unknown 05/14/2020 10:18 AM CDT 05/14/2020 10:55 AM CDT Glenny Martin MD LAB - CHEMISTRY ORDERABLES [facility] ([facility]) [address] [place] [address], [facility] * [place] ANTIBODY IGG TITER (05/14/2020 10:18 [address]T) [facility] Rubella Antibody IgG 50.1 IU/mL 05/16/2020 6:32 PM CDT [facility] ([facility]) Comment: INTERPRETIVE INFORMATION: Rubella Antibody, IgG ??Less [...] the amount of antibody present. Performed By: [facility] [address] [place] [address] [place] [address] [employer] Supervisor: Valerie Mast MD Blood BLOOD SPECIMEN / Unknown Lab Venipuncture / Unknown 05/14/2020 10:18 AM CDT 05/14/2020 10:56 AM CDT Glenny Martin MD LAB - SEROLOGY ORDERABLES [facility]) [address] * RUBEOLA ANTIBODY IGG (05/14/2020 10:18 AM CDT) Measles (Rubeola) Antibody IgG >300.0 AU/mL 05/16/2020 2:46 PM CDT [facility] ([facility]) Comment: INTERPRETIVE INFORMATION: Measles (Rubeola) Antibody, IgG [...] laboratory at the same time. Performed By: [facility] [address] [place] [address] [employer] Supervisor: Valerie Mast MD Blood BLOOD SPECIMEN / Unknown Lab Venipuncture / Unknown 05/14/2020 10:18 AM CDT 05/14/2020 10:57 AM CDT Glenny Martin MD LAB - CHEMISTRY ORDERABLES [facility]) [address] [place] [address], [facility] * MUMPS ANTIBODY IGG (05/14/2020 10:18 AM CDT) [facility] Mumps Virus Antibody IgG 17.2 AU/mL 05/16/2020 6:30 PM CDT [facility] ([facility]) Comment: INTERPRETIVE INFORMATION: Mumps Ab, IgG by [...] laboratory at the same time. Performed By: [facility] [address] [place] [address] [employer] Supervisor: Valerie Mast MD Blood BLOOD SPECIMEN / Unknown Lab Venipuncture / Unknown 05/14/2020 10:18 AM CDT 05/14/2020 10:57 AM CDT Glenny Martin MD LAB - CHEMISTRY ORDERABLES [facility] ([facility]) [address] [place] [address], [facility] * VARICELLA ZOSTER ANTIBODY IGG (05/14/2020 10:18 AM CDT) Varicella zoster Virus Antibody IgG 3705.0 IV 05/16/2020 2:46 PM CDT [facility] ([facility]) Comment: INTERPRETIVE INFORMATION: VZV Ab, IgG 134.9 [...] laboratory at the same time. Performed By: [facility] [address] [place] [id number] [employer] Supervisor: Valerie Mast MD Blood BLOOD SPECIMEN / Unknown Lab Venipuncture / Unknown 05/14/2020 10:18 AM CDT 05/14/2020 10:57 AM CDT Glenny Martin MD LAB - CHEMISTRY ORDERABLES Performing Organization Address [facility] Co de Phone Number [facility]) [address] [place] [address] * PROTEIN C ACTIVITY (05/14/2020 10:18 AM CDT) Protein C Activity 155 83 - 168 % 05/16/2020 10:47 PM CDT [facility] ([facility]) Comment: INTERPRETIVE INFORMATION: Protein C, Functional Patients [...] reference intervals for this test in the [facility] Test Directory ([facility]). Performed by [facility], [address] [place] [address] [email or web address], Valerie Mast MD, Lab. Director Blood BLOOD SPECIMEN / Unknown Lab Venipuncture / Unknown 05/14/2020 10:18 AM CDT 05/14/2020 10:48 AM CDT Glenny Martin MD LAB - COAGULATI ON ORDERABLES Performing Organization Address [facility] de Phone Number [facility]) [address] [place] [address] * TRANSFERRIN (05/14/2020 10:18 AM CDT) Trans[facility] 245 174 - 382 mg/dL 05/14/2020 11:41 AM CDT [facility] Trans[facility] Saturation % 27 16 - 50 % 05/14/2020 11:41 AM CDT [facility] Blood BLOOD SPECIMEN / Unknown Lab Venipuncture / Unknown 05/14/2020 10:18 AM CDT 05/14/2020 10:57 AM CDT Glenny Mratin MD LAB - CHEMISTRY ORDERABLES [address] [place] [address], [facility] [phone] * TOXOPLASMA GONDII ANTIBODY IGG (05/14/2020 10:18 AM CDT) Toxoplasma Antibody IgG <3.0 IU/mL 05/16/2020 6:32 PM CDT [facility] ([facility]) Comment: INTERPRETIVE INFORMATION: Toxoplasma Ab, IgG ??7.1 [...] the amount of antibody present. Performed By: [facility] [address] [place] [address] [employer] Supervisor: Valerie Mast MD Blood BLOOD SPECIMEN / Unknown Lab Venipuncture / Unknown 05/14/2020 10:18 AM CDT 05/14/2020 10:58 AM CDT Glenny Martin MD LAB - CHEMISTRY ORDERABLES [facility]) [address] * (ABNORMAL) MADIHA-MORRIS VIRUS ANTIBODY TO VCA IGG (05/14/2020 10:18 AM CDT) Pathologist [facility] Madiha-Morris Virus Antibody IgG Viral Capsid Antigen 115.0(H) 0.0 - 21.9 U/mL 05/16/2020 5:10 PM CDT [facility] ([facility]) Comment: INTERPRETIVE INFORMATION: Madiha-Morris Virus Antibody to ?Viral Capsid Antigen, IgG ??17.9 U/mL or less.......Not Detected ??18.0-21.9 U/mL..........Indeterminate - Repeat testing in ?10-14 days may be helpful. ??22.0 U/mL or greater....Detected Performed By: [employer] [address] [place] [address] [employer] Supervisor: Valerie Mast MD Blood BLOOD SPECIMEN / Unknown Lab Venipuncture / Unknown 05/14/2020 10:18 AM CDT 05/14/2020 10:55 AM CDT Glenny Martin MD LAB - CHEMISTRY ORDERABLES Performing Organization Address City/State/[facility] Co de Phone Number [facility] ([facility]) [address] [place] [address], [facility] * (ABNORMAL) HEMOGLOBIN A1C (05/14/2020 10:18 AM CDT) Only the most recent of2 resultswithin the time period is included. Hemoglobin A1c 7.7(H) 4.4 - 6.3 % 05/14/2020 3:37 PM CDT [facility] Estimated Average Glucose 174 mg/dL 05/14/2020 3:37 PM T [facility] Comment: HbA1c Interpretation: Treatment target values recommended by ADA and other clinical organizations should be used to evaluate metabolic control in patients. Treatment Target Values: Normal : < 5.7% Pre-diabetes: 5.7-6.4% Diabetes: Equal to or greater than 6.5% Reference: [place] [employer] Standards of Care in Diabetes -2014 In patients 70 years and older consider HbA1c target range of 7.0-7.5% Reference: ??Diabetes Mellitus in Older People: Position Statement on behalf of the International Association of Gerontology and Geriatrics (IAGG), the Diabetes Working Republican for Older People (EDWPOP), and the International Task Force of Experts in Diabetes. ??Casarez A, et al. J [place] [employer]. 2012 Test results diagnostic of diabetes should be repeated for confirmation. The Sebia Capillary 2 assay for the measurement of HbA1c is a National Glycohemoglobin Standardization Program (NGSP)certified method. Blood BLOOD SPECIMEN / Unknown Lab Venipuncture / Unknown 05/14/2020 10:18 AM CDT 05/14/2020 10:55 AM CDT Glenny Martin MD LAB - CHEMISTRY ORDERABLES Performing Organization Address [facility]/ZIP Co de Phone Number [address] [address], [place] [phone] * (ABNORMAL) HOMOCYSTEINE BLOOD QUANTITATIVE (05/14/2020 10:18 AM CDT) Homocysteine 21.1(H) 4.4 - 16.2 umol/L 05/14/2020 11:51 AM CDT [facility] Blood BLOOD SPECIMEN / Unknown Lab Venipuncture / Unknown 05/14/2020 10:18 AM CDT 05/14/2020 10:48 AM CDT Sourav Moscoso MD LAB - CHEMISTRY HUANE SULEMA Performing Organization Address [facility]/ZIP Co de Phone Number [address] [address], [place] [phone] * ANTITHROMBIN III ACTIVITY (05/14/2020 10:18 AM CDT) AT III Activity 125 76 - 128 % 0 9:58 PM CDT [facility] ([facility]) Comment: REFERENCE INTERVAL: Antithrombin, Enzymatic (Activity) Access complete set of age- and/or gender-specific reference intervals for this test in the [facility] Test Directory ([facility]). Performed by [facility], [address] [place] [id number] [email or web address], Valerie Mast MD, Lab. Director Blood BLOOD SPECIMEN / Unknown Lab Venipuncture / Unknown 05/14/2020 10:18 AM CDT 05/14/2020 10:51 AM CDT Sourav Moscoso MD LAB - COAGULATION OR DERABLES [facility] ([facility]) [address] [place] [address], [facility] * (ABNORMAL) VITAMIN D 25-HYDROXY (05/14/2020 10:18 AM CDT) Only the most recent of2 resultswithin the time period is included. [facility] Vitamin D, 25 Hydroxy 23.0(L) See comment: ng/mL 05/14/2020 11:48 AM CDT [facility] Comment: The recommendations for 25-Hydroxy Vitamin [...] LAB - CHEMISTRY ORDERABLES Performing Organization Address City/[facility]/ZIP Co de Phone Number [facility] [address] [place] [address], [place] [phone] * BLOOD TYPE ABO+ RH PANEL (05/14/2020 10:18 AM CDT) ABO Rh A POS 05/14/2020 12:11 PM CDT [facility] Blood BLOOD SPECIMEN / Unknown Lab Venipuncture / Unknown 05/14/2020 10:18 AM CDT 05/14/2020 11:29 AM CDT Glenny Martin MD LAB - BLOOD BAN K ORDERABLES [facility] [address] [place] [address], [facility] [phone] * NICOTINE + METABOLITES BLOOD (05/14/2020 10:18 AM CDT) Nicotine <2 ng/mL 05/18/2020 10:08 PM CDT [facility] ([facility]) Comment: Consistent with abstinence from nicotine-containing products [...] ?? Test developed and characteristics determined by [employer]. See Compliance Statement B: [email or web address] Performed By: [facility] [address] [place] [id number] [employer] Supervisor: Valerie Mast MD 3-Hydroxy Cotinine <2 ng/mL 2019 10:08 PM CDT [facility]) Cotinine <2 ng/mL 05/18/2020 10:08 PM CDT [facility]) Blood BLOOD SPECIMEN / Unknown Lab Venipuncture / Unknown 05/14/2020 10:18 AM CDT 05/14/2020 10:57 AM CDT Glenny Martin MD LAB - CHEMISTRY ORDERABLES [facility]) [address] [place], [place] [address] * (ABNORMAL) CBC W AUTO DIFFERENTIAL (05/14/2020 10:18 AM CDT) Only the most recent of2 resultswithin the time period is included. WBC 5.0 3.5 - 10.5 10? 3 /uL 05/14/2020 11:03 AM [facility] RBC 3.45(L) 4.30 - 5.70 10? 6 /uL 05/14/2020 11:03 AM [facility] Hemoglobin 10.7(L) 13.5 - 17.5 g/dL 05/14/2020 11:03 AM [facility] Hematocrit 31.1(L) 39.0 - 50.0 % 05/14/2020 11:03 AM [facility] MCV 90.1 81.0 - 97.0 fL 05/14/2020 11:03 AM [facility] MCH 31.0 28.0 - 34.0 pg 05/14/2020 11:03 AM [facility] MCHC 34.4 32.0 - 36.0 g/dL 05/14/2020 11:03 AM [facility] Platelet Count 232 150 - 400 10? 3 /uL 05/14/2020 11:03 AM [facility] RDW-SD 42.4 36.0 - 50.0 fL 05/14/2020 11:03 AM [facility] RDW-CV 12.9 11.2 - 14.8 % 05/14/2020 11:03 AM [facility] MPV 9.8 9.3 - 12.8 fL 05/14/2020 11:03 AM [facility] nRBC Absolute 0.00 0 10? 3 /uL 05/14/2020 11:03 AM [facility] nRBC Auto 0.0 0 /100 WBC 05/14/2020 11:03 AM [facility] Neutrophils % 54.8 35.0 - 70.0 % 05/14/2020 11:03 AM [facility] Lymphocytes % 31.2 19.7 - 55.1 % 05/14/2020 11:03 AM [facility] Monocytes % 9.4 3.0 - 15.0 % 05/14/2020 11:03 AM [facility] Eosinophils % 3.8 0.0 - 6.0 % 05/14/2020 11:03 AM [facility] Basophil % 0.6 0.0 - 1.5 % 05/14/2020 11:03 AM [facility] Neutrophils Absolute 2.7 1.6 - 7.0 10? 3 /uL 05/14/2020 11:03 AM [facility] Lymphocyte Absolute 1.6 0.8 - 2.9 10? 3 /uL 05/14/2020 11:03 AM [facility] Monocytes Absolute 0.47 0.14 - 0.66 10? 3 /uL 05/14/2020 11:03 AM [facility] Eosinophils Absolute 0.19 0.00 - 0.45 10? 3 /uL 05/14/2020 11:03 AM [facility] Basophils Absolute 0.03 0.00 - 0.06 10? 3 /uL 05/14/2020 11:03 AM [facility] Immature Granulocytes % 0.2 0.0 - 1.0 % 05/14/2020 11:03 AM [facility] Blood BLOOD SPECIMEN / Unknown Lab Venipuncture / Unknown 05/14/2020 10:18 AM CDT 05/14/2020 10:55 AM [facility] Glenny Martin MD LAB - HEMATOLOG Y ORDERABLES [facility] [address] [place] [address], [facility] [phone] * (ABNORMAL) COMPREHENSIVE METABOLIC PANEL (05/14/2020 10:18 AM [facility]) Only the most recent of2 resultswithin the time period is included. BUN 65(H) 7 - 26 mg/dL 05/14/2020 11:41 AM [facility] Creatinine 5.6(H) 0.6 - 1.2 mg/dL 05/14/2020 11:41 AM [facility] Sodium 142 136 - 145 mmol/L 05/14/2020 11:41 AM [facility] Potassium 3.7 3.5 - 4.5 mmol/L 05/14/2020 11:41 AM [facility] Chloride 101 98 - 107 mmol/L 05/14/2020 11:41 AM [facility] CO2 28 22 - 29 mmol/L 05/14/2020 11:41 AM [facility] Glucose 162(H) 70 - 115 mg/dL 05/14/2020 11:41 AM [facility] Calcium 9.0 8.4 - 10.2 mg/dL 05/14/2020 11:41 AM [facility] Protein Total 6.9 6.0 - 8.3 g/dL 05/14/2020 11:41 AM [facility] Albumin 3.7 3.4 - 5.0 g/dL 05/14/2020 11:41 AM [facility] Bilirubin Total 0.7 0.2 - 1.2 mg/dL 05/14/2020 11:41 AM [facility] Alkaline Phosphatase 140 40 - 150 Units/L 05/14/2020 11:41 AM [facility] ALT 43 0 - 55 Units/L 05/14/2020 11:41 AM [facility] AST 29 5 - 34 Units/L 05/14/2020 11:41 AM [facility] Anion Gap 17 8 - 18 05/14/2020 11:41 AM [facility] BUN/Creatinine Ratio 12 7 - 23 05/14/2020 11:41 AM [facility] Osmolality Calculated 316(H) 270 - 300 mOsm/kg 05/14/2020 11:41 AM [facility] Albumin/Globulin Ratio 1.2 1.1 - 2.3 05/14/2020 11:41 AM CDT [facility] eGFR 11(L) >60 mL/min/1.7 3 m2 05/14/2020 11:41 AM CDT [facility] Blood BLOOD SPECIMEN / Unknown Lab Venipuncture / Unknown 05/14/2020 10:18 AM CDT 05/14/2020 10:55 AM CDT Glenny Martin MD LAB - CHEMISTRY ORDERABLES [facility] [address] [place] [address], [place] [phone] * PROSTATE SPECIFIC ANTIGEN SCREEN (05/14/2020 10:18 AM CDT) PSA Total 0.4 0.0 - 4.0 ng/mL 05/14/2020 11:59 AM CDT [facility] Blood BLOOD SPECIMEN / Unknown Lab Venipuncture / Unknown 05/14/2020 10:18 AM CDT 05/14/2020 10:55 AM CDT Glenny Martin MD LAB - CHEMISTRY ORDERABLES Performing Organization Address [facility] Co de Phone Number [address] [address], [place] [phone] * (ABNORMAL) PHOSPHORUS BLOOD (05/14/2020 10:18 AM CDT) Phosphorus 5.1(H) 2.3 - 4.7 mg/dL 05/14/2020 11:41 AM CDT [facility] Blood BLOOD SPECIMEN / Unknown Lab Venipuncture / Unknown 05/14/2020 10:18 AM CDT 05/14/2020 10:55 AM CDT Glenny Martin MD LAB - CHEMISTRY ORDERABLES Performing Organization Address City/[facility]/ZIP Co de Phone Number [address] [address], [place] [phone] * IRON BLOOD (05/14/2020 10:18 AM CDT) Iron 84 50 - 175 mcg/dL 05/14/2020 11:41 AM CDT [facility] Blood BLOOD SPECIMEN / Unknown Lab Venipuncture / Unknown 05/14/2020 10:18 AM CDT 05/14/2020 10:57 AM CDT Glenny Martin MD LAB - CHEMISTRY ORDERABLES Performing Organization Address City/[facility]/ZIP Co de Phone Number [facility] [address] [place] [address], [facility] [phone] * (ABNORMAL) HEPATITIS B SURFACE ANTIBODY (05/14/2020 10:18 AM CDT) [facility] Hepatitis B Virus Surface Antibody Reactive( A) Non-react bianca 05/14/2020 11:47 AM CDT [facility] Comment: > 12 mIU/mL Hepatitis B surface Antibody (HBsAb). Reactive for HBsAb - individual is considered immune to Hepatitis B Virus infection. Hepatitis B Surface Antibody Quantitative 72.7(H) <8.0 mIU/mL 05/14/2020 11:47 AM CDT [facility] Comment: Hepatitis B Surface Antibody Numeric Result Interpretation: ? Nonreactive: ?<8.0 mIU/mL ? Indeterminate: ??8.0 - 12.0 mIU/mL ? Reactive: ?>12.0 mIU/mL ? Blood BLOOD SPECIMEN / Unknown Lab Venipuncture / Unknown 05/14/2020 10:18 AM CDT 05/14/2020 10:55 AM CDT Glenny Martin MD LAB - CHEMISTRY ORDERABLES Performing Organization Address [facility]/ZIP Co de Phone Number [facility] [address] [place] [address], [place] [phone] * HEPATITIS B CORE ANTIBODY (05/14/2020 10:18 AM CDT) Pathologist [facility] Antibody Total Non-reacti ve Non-reacti ve 05/14/2020 11:47 AM CDT [facility] Blood BLOOD SPECIMEN / Unknown Lab Venipuncture / Unknown 05/14/2020 10:18 AM CDT 05/14/2020 10:55 AM CDT Glenny Mratin MD LAB - CHEMISTRY ORDERABLES [address] [address], [place] [phone] * HEPATITIS B SURFACE ANTIGEN W RFLX CONFIRMATION (05/14/2020 10:18 AM CDT) [facility] Hepatitis B Virus Surface Antigen Non-reacti ve Non-reacti ve 05/14/2020 11:47 AM CDT [facility] Blood BLOOD SPECIMEN / Unknown Lab Venipuncture / Unknown 05/14/2020 10:18 AM CDT 05/14/2020 10:55 AM CDT Glenny Martin MD LAB - CHEMISTRY ORDERABLES Performing Organization Address [facility] Co de Phone Number [address] [address], [place] [phone] * ALCOHOL ETHYL BLOOD (05/14/2020 10:18 AM CDT) [facility] Interpretation Ethanol None Detected None Detected mg/dL 05/14/2020 11:41 AM CDT [facility] Comment:Ethanol levels less than 10 mg/dL are resulted as None detected . Blood BLOOD SPECIMEN / Unknown Lab Venipuncture / Unknown 05/14/2020 10:18 AM CDT 05/14/2020 10:55 AM CDT Glenny Martin MD LAB - CHEMISTRY ORDERABLES Performing Organization Address City/[facility]/ZIP Co de Phone Number [address] [address], [place] [phone] * HEPATITIS C ANTIBODY (05/14/2020 10:18 AM CDT) Pathologist [facility] Hepatitis C Antibody Non-react bianca Non-reac tive 05/14/2020 11:49 AM CDT [facility] Comment:Hepatitis C Antibody screen indicates [...] LAB - CHEMISTRY ORDERABLES Performing Organization Address [facility] Co de Phone Number [facility] [address] [place] [address], [facility] [phone] * (ABNORMAL) HEPATITIS A ANTIBODY (05/14/2020 10:18 AM CDT) [facility] Hepatitis A Virus Antibody Total Positive( A) Negative 05/16/2020 11:02 AM CDT [facility] ([facility]) Comment: The positive anti-HAV is consistent with recent or remote Hepatitis A infection or antibody response to HAV vaccination. False positive anti-HAV can occur. Performed by [employer], [address] [place] [address] [email or web address], Valerie Mast MD, Lab. Director Blood BLOOD SPECIMEN / Unknown Lab Venipuncture / Unknown 05/14/2020 10:18 AM CDT 05/14/2020 10:57 AM CDT Glenny Martin MD LAB - CHEMISTRY ORDERABLES Performing Organization Address [facility]/ZIP Co de Phone Number [facility]) [address] [place] [address] * (ABNORMAL) FERRITIN (05/14/2020 10:18 AM CDT) [facility] Ferritin 502(H) 22 - 275 ng/mL 05/14/2020 11:47 AM CDT [facility] Blood BLOOD SPECIMEN / Unknown Lab Venipuncture / Unknown 05/14/2020 10:18 AM CDT 05/14/2020 10:55 AM CDT Glenny Martin MD LAB - CHEMISTRY ORDERABLES [facility] [address] [place] [address], [facility] [phone] * (ABNORMAL) LIPID PROFILE (05/14/2020 10:18 AM CDT) Cholesterol Total 137 <200 mg/dL 05/14/2020 11:41 AM T [facility] HDL 28(L) >40 mg/dL 05/14/2020 11:41 AM [facility] Comment: ATP III Classification of HDL Cholesterol: ? <40 mg/dL: ??Considered a major risk factor. ? >60 mg/dL: ??Considered a negative risk factor. ? LDL Calculated 70 <100 mg/dL 05/14/2020 11:41 AM [facility] Comment: ATP III Classification of LDL Cholesterol: ?<100 mg/dL: ??Optimal ? 100 - 129 mg/dL: ??Near Optimal/Above Optimal ? 130 - 159 mg/dL: ??Borderline High ? 160 - 189 mg/dL: ??High ?>190 mg/dL: ??Very High ? Triglycerides 196(H) <150 mg/dL 05/14/2020 11:41 AM [facility] Comment: ATP III Classification of Triglycerides: ?<150 mg/dL: ??Normal ? 150 - 199 mg/dL: ??Borderline High ? 200 - 400 mg/dL: ??High ?>500 mg/dL: ??Very High Blood BLOOD SPECIMEN / Unknown Lab Venipuncture / Unknown 05/14/2020 10:18 AM CDT 05/14/2020 10:55 AM CDT Glenny Martin MD LAB - CHEMISTRY ORDERABLES Performing Organization Address City/[facility]/ZIP Co de Phone Number [facility] [address] [place] [address], [facility] [phone] * TYPE + SCREEN PANEL (05/14/2020 10:06 AM CDT) Antibody Screen NEG 0 12:17 PM CDT [facility] ABO Rh A POS 05/14/2020 12:17 PM CDT [facility] Blood Bank BLOOD SPECIMEN / Unknown Lab Venipuncture / Unknown 05/14/2020 10:06 AM CDT 05/14/2020 11:30 AM CDT Glenny Martin MD LAB - BLOOD BAN K ORDERABLES Performing Organization Address City/[facility]/ZIP Co de Phone Number [facility] [address] [place] [address], [facility] [phone] * XR PANOREX (05/14/2020 7:35 AM CDT) Anatomical Region Laterality Modality Head Radiographic Toma ging 05/14/2020 7:56 AM CDT Impressions 05/15/2020 7:51 AM CDT IMPRESSION: No periapical abscess identified. Dictated by Kristie Bee MD (president trust company). I, Dr. CONRAD GONZALES MD have [...] identified. Dictated by Kristie Bee MD (president trust company). Dr. CONRAD Champion MD have personally [...] normal. Dictated by Kristie Bee MD (president trust company). Dr. CONRAD Champion MD have personally [...] normal. Dictated by Kristie Bee MD (president trust company). Dr. CONRAD Champion MD have personally [...] approximately 13% higher for people identified as -Cymraes. eGFR by MDRD 14(L) > OR = [...] Lbs [address] [facility] Comment: Test Performed at: [facility] [place], [place] ??[phone] ANA REYES DO,MPH 04/27/2019 9:17 AM CDT 04/27/2019 9:19 AM CDT Judah Norton MD LAB - URINE CHEMISTR Y ORDERABLES [facility] [address] [place] [address] * XR FOOT RIGHT 3VW OR MORE [...] yo with gout, diffuse arthralgia and positive Hsawn's test. COMPARISON: No prior study is available [...] Region Laterality Modality Pelvis, Lower Extremity [facility] 04/26/2019 1:20 PM CDT Impressions [...] Yellow Straw, Yellow, Colorless 04/26/2019 1:31 PM [facility] Clarity UA Slt Cloudy Clear, Slt Cloudy 04/26/2019 1:31 PM [facility] Specific [place] UA 1.013 1.005 - 1.030 04/26/2019 1:31 PM [facility] pH UA 5.0 5.0 - 8.0 pH 04/26/2019 1:31 PM [facility] Protein UA 2+(A) Negative mg/dL 04/26/2019 1:31 PM [facility] Glucose UA 1+(A) Negative mg/dL 04/26/2019 1:31 PM [facility] Ketone UA Negative Negative mg/dL 04/26/2019 1:31 PM [facility] Bilirubin UA Negative Negative mg/dL 04/26/2019 1:31 PM [facility] Blood UA Negative Negative 04/26/2019 1:31 PM [facility] Nitrite UA Negative Negative 04/26/2019 1:31 PM [facility] Leukocyte Esterase Negative Negative 04/26/2019 1:31 PM CDT [facility] Urobilinogen UA Negative Negative mg/dL 04/26/2019 1:31 PM CDT [facility] RBC UA 0-2 None Seen, 0-2, 3-5 /HPF 04/26/2019 1:31 PM CDT [facility] WBC UA 0-5 None Seen, 0-5 /HPF 04/26/2019 1:31 PM CDT [facility] Squamous Epithelial Cells UA 0-2 None Seen, 0-2 /HPF 04/26/2019 1:31 PM CDT [facility] Mucus UA 1+ None, 1+ /LPF 04/26/2019 1:31 PM CDT [facility] Hyaline Casts UA 11-20(A) None Seen, 0-2 /LPF 04/26/2019 1:31 PM CDT [facility] Urine URINE SPECIMEN OBTAINED BY CLEAN CATCH PROCEDURE / Unknown Collection / Unknown 04/26/2019 12:42 PM CDT 04/26/2019 1:18 PM CDT Narrative [facility] - 04/26/2019 1:31 PM CDT Judah Norton MD LAB - URINALYSIS ORD ERABLES [facility] [address] [place] [address] * CYCLIC CITRUL PEPTIDE ANTIBODY IGG/IGA (CCP) (04/26/2019 12:42 PM CDT) CCP Antibodies IgG/IgA 17 0 - 19 units 04/29/2019 9:06 PM CDT [facility] ([facility]) Comment: ?Negative ? <20 ?Weak positive ?20 - 39 ?Moderate positive ??40 - 59 ?Strong positive ?>59 Blood BLOOD SPECIMEN / Unknown Lab Venipuncture / Unknown 04/26/2019 12:42 PM CDT 04/26/2019 1:18 PM CDT Narrative [facility] ([facility]) - 04/29/2019 9:06 PM CDT Performed at: ??01 - [facility] ??[id number] Barrel Lathe Operator: Con Grimaldo MD, Phone: ??[phone] Judah Norton MD LAB - SEROLOGY ORDER ROVERTO Performing Organization Address City/[facility]/ZIP Co de Phone Number [facility] ([facility]) [address] [phone] * RHEUMATOID FACTOR BLOOD QUANTITATIVE (04/26/2019 12:42 PM CDT) Rheumatoid Factor <15 <30 IU/mL 04/26/2019 2:34 PM CDT [facility] Blood BLOOD SPECIMEN / Unknown Lab Venipuncture / Unknown 04/26/2019 12:42 PM CDT 04/26/2019 1:18 PM CDT Judah Norton MD LAB - CHEMISTRY SUSANNAH LEONE Performing Organization Address [facility] Co de Phone Number [address] [phone] * C-REACTIVE PROTEIN (04/26/2019 12:42 PM CDT) C-Reactive Protein <0.5 <=0.5 mg/dL 04/26/2019 2:21 PM CDT [facility] Blood BLOOD SPECIMEN / Unknown Lab Venipuncture / Unknown 04/26/2019 12:42 PM CDT 04/26/2019 1:19 PM CDT Judah Norton MD LAB - CHEMISTRY SUSANNAH LEONE Performing Organization Address City/[facility]/ZIP Co de Phone Number [address] [place] [phone] * SHAWN BLOOD SCREEN W/REFLEX TITER (04/26/2019 12:42 PM CDT) SHAWN Negative 04/27/2019 3:07 PM CDT [facility] ([facility]) Comment: ? Negative ?? <1:80 ? Borderline ??1:80 ? Positive ?? >1:80 Blood BLOOD SPECIMEN / Unknown Lab Venipuncture / Unknown 04/26/2019 12:42 PM CDT 04/26/2019 1:18 PM CDT Narrative [facility] ([facility]) - 04/27/2019 3:07 PM CDT Performed at: ??01 - [facility] [address] [place], [place] ??[id number] Barrel Lathe Operator: Mehdi Del Angel PhD, Phone: ??[phone] Judah oNrton MD LAB - CHEMISTRY SUSANNAH LEONE [facility] ([facility]) [address] [place] [address] * SS-B (SJOGREN'S) ANTIBODY (04/26/2019 12:42 PM CDT) SS-B LA Antibody 2.8 0.0 - 19.9 Units 04/30/2019 9:45 AM CDT [facility] Comment: JOSE ENRIQUE Antibody Numeric Result Interpretation: ?<20.0 Units: ??Negative ?20.0 - 39.0 Units: ??Weakly Positive ?>39.0 Units: ??Positive ? Blood BLOOD SPECIMEN / Unknown Lab Venipuncture / Unknown 04/26/2019 12:42 PM CDT 04/26/2019 1:19 PM CDT Judah Norton MD LAB - CHEMISTRY SUSANNAH LEONE Performing Organization Address [facility] Co de Phone Number [facility] [address] [phone] * SS-A (SJOGREN'S) ANTIBODY (04/26/2019 12:42 PM CDT) SS-A (Ro) Antibody 2.7 0.0 - 19.9 Units 04/30/2019 9:45 AM CDT [facility] Comment: JOSE ENRIQUE Antibody Numeric Result Interpretation: ?<20.0 Units: ??Negative ?20.0 - 39.0 Units: ??Weakly Positive ?>39.0 Units: ??Positive ? Blood BLOOD SPECIMEN / Unknown Lab Venipuncture / Unknown 04/26/2019 12:42 PM CDT 04/26/2019 1:19 PM CDT Judah Norton MD LAB - CHEMISTRY SUSANNAH LEONE Performing Organization Address [facility] de Phone Number [address] [phone] * ALDOLASE (04/26/2019 12:42 PM CDT) Aldolase 6.9 3.3 - 10.3 U/L 04/29/2019 3:08 PM CDT [facility] ([facility]) Blood BLOOD SPECIMEN / Unknown Lab Venipuncture / Unknown 04/26/2019 12:42 PM CDT 04/26/2019 1:18 PM CDT Narrative [facility] ([facility]) - 04/29/2019 3:08 PM CDT Performed at: ??01 - [facility] [address], [place], [place] ??[id number] Barrel Lathe Operator: Mehdi Del Angel PhD, Phone: ??[phone] Judah Norton MD LAB - CHEMISTRY SUSANNAH LEONE Performing Organization Address City/[facility]/ZIP Co de Phone Number [facility] ([facility]) [address] [place] [address] * (ABNORMAL) ERYTHROCYTE SEDIMENTATION RATE (04/26/2019 12:42 PM CDT) Erythrocyte Sedimentation Rate Westergren 34(H) 0 - 20 MM/HR 04/26/2019 1:31 PM CDT [facility] Blood BLOOD SPECIMEN / Unknown Lab Venipuncture / Unknown 04/26/2019 12:42 PM CDT 04/26/2019 1:19 PM CDT Judah Norton MD LAB - HEMATOLOGY HUAN WALTON [address] [phone] * (ABNORMAL) LDH BLOOD (04/26/2019 12:42 PM CDT) Pathologist [facility] LDH Total 268(H) 125 - 243 Units/L 04/26/2019 1:43 PM CDT [facility] Blood BLOOD SPECIMEN / Unknown Lab Venipuncture / Unknown 04/26/2019 12:42 PM CDT 04/26/2019 1:19 PM CDT Judah Norton MD LAB - CHEMISTRY SUSANNAH LEONE Performing Organization Address City/[facility]/ZIP Co de Phone Number [address] [phone] * (ABNORMAL) CK BLOOD (04/26/2019 12:42 PM CDT) CK Total 280(H) 30 - 200 Units/L 04/26/2019 1:43 PM CDT [facility] Blood BLOOD SPECIMEN / Unknown Lab Venipuncture / Unknown 04/26/2019 12:42 PM CDT 04/26/2019 1:19 PM CDT Judah Norton MD LAB - CHEMISTRY ORDIsaias LEONE [address] [phone] * CARDIAC PROCEDURE ORDER (11/27/2018 1:35 AM [...] - 106 mg/dL 11/26/2018 10:39 AM CDT [facility] Specimen Type UNKNOWN SAMPLE TYPE 11/26/2018 10:39 AM CDT [facility] Blood BLOOD SPECIMEN / Unknown 11/23/2018 2:11 PM CDT 11/26/2018 10:39 AM CDT Francisco Luque MD LAB - POINT OF CARE ORDERABLES [facility] [address] [id number] * (ABNORMAL) BASIC METABOLIC PANEL (CALCIUM TOTAL) (11/23/2018 3:25 AM CDT) Only the most recent of2 resultswithin the time period is included. Glucose 195(H) 74 - 106 mg/dL 11/23/2018 5:10 AM CDT [facility] Sodium 135(L) 136 - 145 mmol/L 11/23/2018 5:10 AM CDT [facility] Potassium 3.8 3.5 - 5.1 mmol/L 11/23/2018 5:10 AM CDT [facility] Chloride 104 98 - 107 mmol/L 11/23/2018 5:10 AM CDT [facility] CO2 23 23 - 31 mmol/L 11/23/2018 5:10 AM CDT [facility] Calcium 8.3(L) 8.4 - 10.2 mg/dL 11/23/2018 5:10 AM CDT [facility] Anion Gap 8 8 - 16 mmol/L 11/23/2018 5:10 AM CDT [facility] BUN 56(H) 8.4 - 25.7 mg/dL 11/23/2018 5:10 AM CDT [facility] Creatinine 2.74(H) 0.73 - 1.18 mg/dL 11/23/2018 5:10 AM CDT [facility] eGFR by MDRD 25(L) >60 mL/min/1.7 3m2 11/23/2018 5:10 AM CDT [facility] eGFR by MDRD 30(L) >60 mL/min/1.7 3m2 11/23/2018 5:10 AM CDT [facility] Blood BLOOD SPECIMEN / Unknown Venipuncture / Unknown 11/23/2018 3:25 AM CDT 11/23/2018 4:37 AM CDT Francisco Luque MD LAB - CHEMISTRY [facility] Organization Address City/State/ZIP Co de Phone Number [facility] [address] [place] [address] * CARDIAC CATH PROCEDURE (11/22/2018 12:00 PM CDT) 11/22/2018 12:0 0 PM CDT Narrative Procedure Note Francisco Luque MD - 11/23/2018 3:23 AM CDT [facility] CARDIAC CATHETERIZATION PATIENT: JUVENAL GARVIN MR#: [id number] ADMIT DATE: 11/22/2018 CSN: [id number] PROCEDURE DATE: 11/22/2018 :1970 PHYSICIAN: Francisco Luque Jr., MD ROOM: [facility] REFERRING PHYSICIAN: Francisco Luque Jr., MD PROCEDURE [...] sheath wasplaced in right femoral artery. A 5-Salvadorean #4 Kranthi left coronary catheterwas advanced in the left coronary ostium and left coronary arteriograms were performed in multiple projections. This catheter was removed and exchangedfor 5-Salvadorean #4 Kranthi right coronary catheter, was advanced in the right coronary ostium. Right coronary arteriography was performed in multiple projections. This catheter was removed. The decision was made to proceedwith intervention and therefore no left ventriculogram was performed to avoid excess dye in this patient with severe kidney disease. The arterial sheathwas exchanged for 6-Salvadorean sheath followed by advancement of a 6-Salvadorean #4Judkins right guide to the right coronary [...] descending artery. Injection of contrast reveals an [id number]% stenosis and mid 90% stenosis and a [...] gentleman. FRANCISCO LUQUE JR., MD RPR/MODL #: [id number] cc: Francisco Luque Jr., MD MEDICAL/SURGICAL CARDIAC [...] Region Laterality Modality Pelvis, Lower Extremity Radi[facility] 03/25/2015 8:09 PM CDT Impressions [...] [facility] ORDERABLES Care Teams Health Policy Analyst Relationship Specialty Start Date End Date Aditya Castro Update Information PCP - General 03/06/19
--- OUTSIDE RECORDS SUMMARY | 2024-09-07 23:23 | XMS_ITS | Encounter Summary ---
Author Organization [facility] Address [address] [facility] [place] [address] Care Team Providers Care Surfboard Maker Name Role Phone Aditya Castro Primary Care Provider Unavailab le Reason for Visit * Radiology Services (Routine) - Closed Specialty Diagnoses / Procedures Referred By Aguilar t Referred To Contact Diagnoses Pre-transplant evaluation for kidney transplant Procedures ECHO STRESS TEST W DOBUTAMINE Glenny Martin MD [address] [place] [address] [facility] Kidney Transplant [address] [place] [address] Referral ID Status Reason Start Date Expiration Date Visits Re quested Visits Authorized [id number] Closed 05/14/2020 08/13/2020 1 1 Encounter Details Date Type Department Care Team (Late st Contact Info) Description 05/14/2020 7:37 AM CDT - 05/14/2020 7:54 AM T Hospital Encounter [facility] ECHO [address] [place] [phone] Glenny Martin MD [address] [facility] [place] [address] Discharge Disposition: Home or Self [...] 12 hours as needed 01/25/2019 epoetin (PROCRIT) 30168 UNIT/ML injection Inject subcutaneously every 14 days ezetimibe (ZETIA) 10 MG tablet Take 10 mg by mouth once daily febuxostat (ULORIC) 40 MG tablet Take 40 mg by mouth 02/25/2019 ferrous sulfate EC (FERROUS SULFATE) 324 (65 Fe) MG tablet Take 324 mg by mouth once daily 02/21/2019 fluticasone propionate (FLONASE) 50 MCG/ACT nasal spray [place] 1 spray into each nostril once daily [...] test strip 04/17/2019 vitamin D, ergocalciferol, (DRISDOL) 79828 units capsule Take 50,000 Units by mouth [...] discharge the patient per Dr. Gaurang Castro, Process Camera Operator. Patient has no complaints. Denies chest [...] mL documented in this encounter Care Teams Surfboard Maker Relationship Specialty Start Date End Date Aditya Castro Update Information PCP - General 03/06/19 documented as of this encounter
--- OUTSIDE RECORDS SUMMARY | 2024-09-07 23:23 | XMS_ITS | Encounter Summary ---
Author Organization [facility] Address [address] [facility] [place] [place] [address] Care Team Providers Care Switchboard Inspector Name Role Phone Aditya Castro Primary Care Provider Unavailab le Reason for Visit * Reason Comments Kidney Transplant Evaluation Encounter Details Date Type Department Care Team (Late st Contact Info) Description 05/26/2020 Telephone [facility] TRANSPLANT [address] [place] [address] Carey Chavez Kidney Transplant Evaluation [...] filedocumented in this encounter Care Teams Switchboard Inspector Relationship Specialty Start Date End Date Aditya Castro Update Information PCP - General 03/06/19 documented as of this encounter
--- OUTSIDE RECORDS SUMMARY | 2024-09-07 23:23 | XMS_ITS | Encounter Summary ---
Author Organization [facility] Address [address] [facility] [place] [address] Care Team Providers Care High Frequency Mill Operator Name Role Phone Aditya Castor Primary Care Provider Unavailab le Reason for Referral * Radiology Services (Routine) - Closed Specialty Diagnoses / Procedures Referred By Aguialr lora Referred To Contact Diagnoses Pre-transplant evaluation for kidney transplant Procedures CT ABDOMEN AND PELVIS NON IV CONTRAST Glenny Martin MD [address] [place] [address] [facility]ney Transplant [address] [place] [phone] Referral ID Status Reason Start Date Expiration Date Visits Re quested Visits Authorized [id number] Closed 05/14/2020 08/13/2020 1 1 Reason for Visit * Radiology Services (Routine) - Closed Specialty Diagnoses / Procedures Referred By Aguilar lora Referred To Contact Diagnoses Pre-transplant evaluation for kidney transplant Procedures CT ABDOMEN AND PELVIS NON IV CONTRAST Glenny Martin MD [address] [place] [address] [facility] Kidney Transplant [address] [place] [phone] Referral ID Status Reason Start Date Expiration Date Visits Re quested Visits Authorized [id number] Closed 05/14/2020 08/13/2020 1 1 Encounter Details Date Type Department Care Team (Late st Contact Info) Description 05/14/2020 10:25 AM CDT - 05/14/2020 10:39 AM CDT Hospital Encounter [facility] CAT SCAN [address] [place] [address] Glenny Martin MD [address] [facility] [place] [address] Discharge Disposition: Home or Self Care Social [...] 12 hours as needed 01/25/2019 epoetin (PROCRIT) 26958 UNIT/ML injection Inject subcutaneously every 14 days ezetimibe (ZETIA) 10 MG tablet Take 10 mg by mouth once daily febuxostat (ULORIC) 40 MG tablet Take 40 mg by mouth 02/25/2019 ferrous sulfate EC (FERROUS SULFATE) 324 (65 Fe) MG tablet Take 324 mg by mouth once daily 02/21/2019 fluticasone propionate (FLONASE) 50 MCG/ACT nasal spray [place] 1 spray into each nostril once daily [...] test strip 04/17/2019 vitamin D, ergocalciferol, (DRISDOL) 28292 units capsule Take 50,000 Units by mouth [...] Dictated by Ash Moreira MD (vice president global digital marketing). I, Dr. HANNAH SPENCE have personally reviewed [...] Dictated by Ash Moreira MD (vice president global digital marketing). I, Dr. HANNAH SPENCE have personally reviewed and interpreted this examination/study. This report was electronically signed by HANNAH SPENCE on 05/14/20205:03 PM . Glenny Martin MD CT ORDERABLES documented in this encounter Visit Diagnoses Diagnosis Pre-transplant evaluation for kidney transplant documented in this encounter Care Teams High Frequency Mill Operator Relationship Specialty Start Date End Date Aditya Castro Update Information PCP - General 03/06/19 documented as of this encounter
--- OUTSIDE RECORDS SUMMARY | 2024-09-07 23:23 | XMS_ITS | Encounter Summary ---
Author Organization [facility] Address [address] [facility] [place] [address] Care Team Providers Care Hide Cleaner Name Role Phone Aditya Castro Primary Care Provider Unavailab le Encounter Details Date Type Department Care Team (Late st Contact Info) Description 09/30/2020 Orders Only [facility] - COVID Vaccine [address] [place] [phone] Carrington Leos MD [address] [place] [address] Need for vaccination Social History Tobacco Use [...] disease documented in this encounter Care Teams Hide Cleaner Relationship Specialty Start Date End Date Aditya Castro Update Information PCP - General 03/06/19 documented as of this encounter
--- OUTSIDE RECORDS SUMMARY | 2024-09-07 23:23 | XMS_ITS | Encounter Summary ---
Author Organization [facility] Address [address] [facility] [place] [address] Care Team Providers Care Script Manager Name Role Phone Aditya Castro Primary Care Provider Unavailab le Reason for Referral * Laboratory Services (Routine) - Closed Specialty Diagnoses / Procedures Referred By Contac t Referred To Contact Diagnoses Pre-transplant evaluation for kidney transplant Procedures FACTOR V LEIDEN MUTATION PANEL Sourav Moscoso MD [address] Personal [place] [address] Referral ID Status Reason Start Date Expiration Date Visits Re quested Visits Authorized [id number] Closed 03/24/2020 03/24/2021 1 1 * Laboratory Services (Routine) - Closed Specialty Diagnoses / Procedures Referred By Contac t Referred To Contact Diagnoses Pre-transplant evaluation for kidney transplant Procedures PROTHROMBIN [id number] PANEL Sourav Moscoso MD [address] Personal [place] [address] Referral ID Status Reason Start Date Expiration Date Visits Re quested Visits Authorized [id number] Closed 03/24/2020 03/24/2021 1 1 Reason for Visit * Laboratory Services (Routine) - Closed Specialty Diagnoses / Procedures Referred By Contac t Referred To Contact Diagnoses Pre-transplant evaluation for kidney transplant Procedures PROTHROMBIN [id number] PANEL Sourav Moscoso MD [address] Personal Estate ManagerIsaias ClowdyMark [address] [place] [address] Referral ID Status Reason Start Date Expiration Date Visits Re quested Visits Authorized [id number] Closed 03/24/2020 03/24/2021 1 1 Encounter Details Date Type Department Care Team (Late st Contact Info) Description 05/14/2020 10:00 AM CDT - 05/14/2020 10:24 AM CDT Hospital Encounter [facility] OP DRAW STATION [address] [place] [address] Glenny Martin MD [facility] [place] [address] Discharge Disposition: Home or Self Care Social [...] 12 hours as needed 01/25/2019 epoetin (PROCRIT) 14054 UNIT/ML injection Inject subcutaneously every 14 days ezetimibe (ZETIA) 10 MG tablet Take 10 mg by mouth once daily febuxostat (ULORIC) 40 MG tablet Take 40 mg by mouth 02/25/2019 ferrous sulfate EC (FERROUS SULFATE) 324 (65 Fe) MG tablet Take 324 mg by mouth once daily 02/21/2019 fluticasone propionate (FLONASE) 50 MCG/ACT nasal spray [place] 1 spray into each nostril once daily [...] test strip 04/17/2019 vitamin D, ergocalciferol, (DRISDOL) 97013 units capsule Take 50,000 Units by mouth [...] CDT Pre-transplant evaluation for kidney transplant PROTHROMBIN [id number] PANEL Routine 05/14/2020 10:18 AM CDT Pre-transplant [...] PROTEIN S ANTIGEN (05/14/2020 10:18 AM CDT) [facility] [address] [facility] Protein S Antigen Total 177(H) 60 - 150 % 05/16/2020 2:07 AM CDT [facility] ([facility]) Comment: This test was developed and its performance characteristics determined by [facility]. It has not been cleared or approved by the Food and Drug Administration. Total Protein S Antigen is an acute phase reactant protein and can be elevated in inflammatory states. Protein S Free 179(H) 57 - 157 % 05/16/2020 2:07 AM CDT [facility] ([facility]) Comment: This test was developed and its performance characteristics determined by [facility]. It has not been cleared or approved by the Food and Drug Administration. Blood BLOOD SPECIMEN / Unknown Lab Venipuncture / Unknown 05/14/2020 10:18 AM CDT 05/14/2020 10:48 AM CDT [facility] ([facility]) - 05/16/2020 2:07 AM CDT Performed at: ??01 - [facility] [address] ??[id number] Senior Tax Specialist: Con Grimaldo MD, Phone: ??[phone] Sourav Moscoso MD LAB - COAGULATION OR DERABLES [facility] ([facility]) [address] [place] [address], [facility] * ANTITHROMBIN III ACTIVITY (05/14/2020 10:18 AM CDT) Pathologist [facility] AT III Activity 125 76 - 128 % 0 9:58 PM CDT [facility] ([facility]) Comment: REFERENCE INTERVAL: Antithrombin, Enzymatic (Activity) Access complete set of age- and/or gender-specific reference intervals for this test in the [facility] ([email or web address]). Performed by [facility], [address] [place] [address] [email or web address], Valerie Mast MD, Lab. Director Blood BLOOD SPECIMEN / Unknown Lab Venipuncture / Unknown 05/14/2020 10:18 AM CDT 05/14/2020 10:51 AM CDT Sourav Moscoso MD LAB - COAGULATION OR DERABLES Performing Organization Address [facility]/ZIP Co de Phone Number [facility]) [address] [place] [address] * CARDIOLIPIN ANTIBODY IGM (05/14/2020 10:18 AM CDT) [facility] Cardiolipin Antibody IgM 0 0 - 12 MPL 05/17/2020 12:33 AM CDT [facility] ([facility]) Comment: INTERPRETIVE INFORMATION: Anti-Cardiolipin IgM 0-12 MPL: [...] other criteria phospholipid antibody tests. Performed By: [facility] [address] [place] [address] Equipment Records Supervisor: Valerie Mast MD Blood BLOOD SPECIMEN / Unknown Lab Venipuncture / Unknown 05/14/2020 10:18 AM CDT 05/14/2020 10:57 AM CDT Sourav Moscoso MD LAB - SEROLOGY ORDER ROVERTO [facility] ([facility]) [address] [place] [address] * CARDIOLIPIN ANTIBODY IGG (05/14/2020 10:18 AM CDT) Cardiolipin Antibody IgG 2 0 - 14 GPL 05/17/2020 12:32 AM CDT [facility] ([facility]) Comment: INTERPRETIVE INFORMATION: Anti-Cardiolipin IgG Ab 0-14 [...] other criteria phospholipid antibody tests. Performed By: [facility] [address] [place] [address] Equipment Records Supervisor: Valerie Mast MD Blood BLOOD SPECIMEN / Unknown Lab Venipuncture / Unknown 05/14/2020 10:18 AM CDT 05/14/2020 10:58 AM CDT Sourav Moscoso MD LAB - SEROLOGY ORDER ROVERTO [facility] ([facility]) [address] [place] [address], [facility] * FACTOR V LEIDEN MUTATION PANEL (05/14/2020 10:18 AM CDT) [facility] Factor V Leiden Source Whole Blood 05/21/2020 4:02 PM CDT [facility] ([facility]) Factor V Leiden PCR/FRET Negative 05/21/2020 4:02 PM CDT [facility] ([facility]) Comment: Indication for testing: Assess genetic risk for thrombosis. NEGATIVE: The factor V Leiden variant, c.1601G>A; p.[id number], was not detected. This does not exclude [...] function in the F5 gene variant c.1601G>A (p.Ahg166Wqk). Legacy nomenclature: [id number] (1691G>A) CLINICAL SENSITIVITY: 20-50 percent of individuals with an isolated VTE have the FVL variant. METHODOLOGY: Polymerase chain reaction and fluorescence monitoring. ANALYTICAL SENSITIVITY AND SPECIFICITY: 99 percent. LIMITATIONS: Diagnostic errors can occur due to rare sequence variations. F5 gene mutations, other than p.Zib674Yez, will not be detected. This test was developed and its performance characteristics determined by [facility]. It has not been cleared or approved by the US Food and Drug Administration. This test was performed in a CLIA certified laboratory and is intended for clinical purposes. Counseling and informed consent are recommended for genetic testing. Consent forms are available online. Performed by [facility], [address] [place] [address] [email or web address], Valerie Mast MD, Lab. Director Blood BLOOD SPECIMEN / Unknown Lab Venipuncture / Unknown 05/14/2020 10:18 AM CDT 05/14/2020 10:49 AM CDT Sourav Moscoso MD LAB - COAGULATION OR DERABLES [facility] ([facility]) [address] [place] [address], [facility] * PROTHROMBIN [id number] PANEL (05/14/2020 10:18 AM CDT) [facility] Prothrombin [id number] Negative 05/21/2020 8:19 PM CDT [facility] ([facility]) Comment: Indication for testing: Assess genetic risk for thrombosis. NEGATIVE: The Factor II, prothrombin V58271J mutation, was not detected. ??Other causes of [...] Cui, Ph.D. 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 PATHOGENIC VARIANT TESTED: F2 c.*97G>A (K80409M). CLINICAL SENSITIVITY FOR VENOUS THROMBOSIS: Approximately 10 percent. METHODOLOGY: Polymerase chain reaction and fluorescence monitoring. ANALYTICAL SENSITIVITY AND SPECIFICITY: 99 percent. LIMITATIONS: Diagnostic errors can occur due to rare sequence variations. F2 gene variants, other than c.*97G>A (B87536S), will not be detected. This test was developed and its performance characteristics determined by [facility]. It has not been cleared or approved by the US Food and Drug Administration. This test was performed in a CLIA certified laboratory and is intended for clinical purposes. Counseling and informed consent are recommended for genetic testing. Consent forms are available online. Performed by [facility], [address] [place] [address],[place] [address] [email or web address], Valerie Mast MD, Lab. Director Source PT [id number] PCR Whole Blood 05/21/2020 8:19 PM CDT [facility] ([facility]) Blood BLOOD SPECIMEN / Unknown Lab Venipuncture / Unknown 05/14/2020 10:18 AM CDT 05/14/2020 10:48 AM CDT Sourav Moscoso MD LAB - COAGULATION OR DERABLES Performing Organization Address City/[facility]/ZIP Co de Phone Number [facility]) [address] * (ABNORMAL) HOMOCYSTEINE BLOOD QUANTITATIVE (05/14/2020 10:18 AM CDT) Homocysteine 21.1(H) 4.4 - 16.2 umol/L 05/14/2020 11:51 AM CDT [facility] Blood BLOOD SPECIMEN / Unknown Lab Venipuncture / Unknown 05/14/2020 10:18 AM CDT 05/14/2020 10:48 AM CDT Sourav Moscoso MD LAB - CHEMISTRY ORDE RAB[place] [id number] [place] [phone] [place] [address] * HLA ANTIBODY SCREEN LUM CLASS 1 ID (05/14/2020 10:18 AM CDT) % PRA 4 05/29/2020 7:59 AM CDT [facility] ([facility]) Class 1 LUM Specificity - 05/29/2020 7:59 AM CDT [facility] ([facility]) Class 1 LUM Test Date 0 05/29/2020 7:59 AM CDT [facility] ([facility]) Comment: This test was developed and its performance characteristics determined by the [facility]. ??It has not been [...] high complexity clinical laboratory testing. ??CLIA ID# [id number] Performed at: ??[facility], [address] @ [place], [place] ??[phone] Senior Tax Specialist: Jarrod Chin MD, Blood BLOOD SPECIMEN / Unknown Lab Venipuncture / Unknown 05/14/2020 10:18 AM CDT 05/14/2020 10:52 AM CDT Glenny Martin MD LAB - BLOOD BAN K ORDERABLES [facility] ([facility]) [address] [place] [address], [place] * HLA ANTIBODY SCREEN LUM CLASS 2 ID (05/14/2020 10:18 AM CDT) % PRA 90 05/29/2020 7:59 AM CDT [facility] ([facility]) Class 2 LUM Specificity - 05/29/2020 7:59 AM CDT [facility] ([facility]) Class 2 LUM Test Date 0 05/29/2020 7:59 AM CDT [facility] ([facility]) Comment: This test was developed and its performance characteristics determined by the [facility]. ??It has not been [...] high complexity clinical laboratory testing. ??CLIA ID# [id number] Performed at: ??[facility], [address] @ [place], [place] ??[phone] Senior Tax Specialist: Jarrod Chin MD, Blood BLOOD SPECIMEN / Unknown Lab Venipuncture / Unknown 05/14/2020 10:18 AM CDT 05/14/2020 10:52 AM CDT Glenny Martin MD LAB - BLOOD BAN K ORDERABLES Performing Organization Address City/[facility]/ZIP Co de Phone Number [facility] ([facility]) [address] [place] [address], [facility] * HIV-1 HIV-2 ANTIGEN/ANTIBODY (05/14/2020 10:18 AM CDT) HIV Antigen/Antibod y 1 & 2 Non-reacti ve Non-react bianca 05/14/2020 11:49 AM CDT [facility] Comment:Neither HIV-1 p24 An tigen nor HIV-1/HIV-2 Antibodies are detected. Blood BLOOD SPECIMEN / Unknown Lab Venipuncture / Unknown 05/14/2020 10:18 AM CDT 05/14/2020 10:57 AM CDT Glenny Martin MD LAB - HEMATOLOG Y ORDERABLES Performing Organization Address [facility] Co de Phone Number [facility] [address] [address], [facility] [phone] * (ABNORMAL) HEPATITIS A ANTIBODY (05/14/2020 10:18 AM CDT) [facility] Hepatitis A Virus Antibody Total Positive( A) Negative 05/16/2020 11:02 AM CDT [facility] ([facility]) Comment: The positive anti-HAV is consistent with recent or remote Hepatitis A infection or antibody response to HAV vaccination. False positive anti-HAV can occur. Performed by [facility], [address] [place], [place] [id number] [email or web address], Valerie Mast MD, Lab. Director Blood BLOOD SPECIMEN / Unknown Lab Venipuncture / Unknown 05/14/2020 10:18 AM CDT 05/14/2020 10:57 AM CDT Glenny Martin MD LAB - CHEMISTRY ORDERABLES Performing Organization Address [facility] Co de Phone Number [facility] ([facility]) [address] [place] [address] * (ABNORMAL) PTH INTACT ([facility]) (05/14/2020 10:18 AM CDT) Pathologist [facility] PTH Intact 653.3(H) 8.0 - 77.0 pg/mL 05/14/2020 11:34 AM CDT [facility] Blood BLOOD SPECIMEN / Unknown Lab Venipuncture / Unknown 05/14/2020 10:18 AM CDT 05/14/2020 10:55 AM CDT Glenny Martin MD LAB - CHEMISTRY ORDERABLES [facility] [address] [place] [address], [facility] [phone] * TOXOPLASMA GONDII ANTIBODY IGG (05/14/2020 10:18 AM CDT) [facility] Toxoplasma Antibody IgG <3.0 IU/mL 05/16/2020 6:32 PM CDT [facility] ([facility]) Comment: INTERPRETIVE INFORMATION: Toxoplasma Ab, IgG ??7.1 [...] the amount of antibody present. Performed By: [facility] [address] [place] [address] Equipment Records Supervisor: Valerie Mast MD Blood BLOOD SPECIMEN / Unknown Lab Venipuncture / Unknown 05/14/2020 10:18 AM CDT 05/14/2020 10:58 AM CDT Glenny Martin MD LAB - CHEMISTRY ORDERABLES [facility]) [address] [place] [address], [facility] * STRONGYLOIDES ANTIBODY IGG (05/14/2020 10:18 AM CDT) Strongyloides Antibody IgG 0.2 <=0.9 IV 05/17/2020 10:58 PM CDT [facility] ([facility]) Comment: INTERPRETIVE INFORMATION: Strongyloides Ab, IgG by [...] also result in false-positive results. Performed By: [facility] [address] [place] [address] Equipment Records Supervisor: Valerie Mast MD Blood BLOOD SPECIMEN / Unknown Lab Venipuncture / Unknown 05/14/2020 10:18 AM CDT 05/14/2020 10:55 AM CDT Glenny Martin MD LAB - SEROLOGY ORDERABLES [facility]) [address] [place] [address], [facility] * PROSTATE SPECIFIC ANTIGEN SCREEN (05/14/2020 10:18 AM CDT) PSA Total 0.4 0.0 - 4.0 ng/mL 05/14/2020 11:59 AM CDT [facility] Blood BLOOD SPECIMEN / Unknown Lab Venipuncture / Unknown 05/14/2020 10:18 AM CDT 05/14/2020 10:55 AM CDT Glenny Martin MD LAB - CHEMISTRY ORDERABLES Performing Organization Address City/[facility]/ZIP Co de Phone Number [address] [address], [facility] [phone] * CANNABINOID SCREEN BLOOD (05/14/2020 10:18 AM CDT) Marijuana Metabolites Negative 05/17/2020 12:06 AM CDT [facility] ([facility]) Comment:REFERENCE RANGE: thr shold: 5 ng/mL Specimen Type Comment 05/17/2020 12:06 AM CDT [facility] ([facility]) Comment: WHOLE BLOOD This specimen was screened [...] CDT 05/14/2020 10:53 AM CDT Narrative [facility] ([facility]) - 05/17/2020 12:06 AM CDT Performed at: ??01 - [facility] [employer] [address] [place] [address] ??[phone] Senior Tax Specialist: Radha Callahan [facility], Phone: ??[phone] Glenny Martin MD LAB - CHEMISTRY ORDERABLES [facility] ([facility]) [address] [place] [place] [phone] * IRON BLOOD (05/14/2020 10:18 AM CDT) Iron 84 50 - 175 mcg/dL 05/14/2020 11:41 AM CDT [facility] Blood BLOOD SPECIMEN / Unknown Lab Venipuncture / Unknown 05/14/2020 10:18 AM CDT 05/14/2020 10:57 AM CDT Glenny Martin MD LAB - CHEMISTRY ORDERABLES Performing Organization Address City/[facility]/ZIP Co de Phone Number [address] [address], [place] [phone] * (ABNORMAL) FERRITIN (05/14/2020 10:18 AM CDT) Ferritin 502(H) 22 - 275 ng/mL 05/14/2020 11:47 AM CDT [facility] Blood BLOOD SPECIMEN / Unknown Lab Venipuncture / Unknown 05/14/2020 10:18 AM CDT 05/14/2020 10:55 AM CDT Glenny Martin MD LAB - CHEMISTRY ORDERABLES [address] [address], [place] [phone] * TRANSFERRIN (05/14/2020 10:18 AM CDT) Transferrin 245 174 - 382 mg/dL 05/14/2020 11:41 AM CDT [facility] Transferrin Saturation % 27 16 - 50 % 05/14/2020 11:41 AM CDT [facility] Blood BLOOD SPECIMEN / Unknown Lab Venipuncture / Unknown 05/14/2020 10:18 AM CDT 05/14/2020 10:57 AM CDT Glenny Martin MD LAB - CHEMISTRY ORDERABLES Performing Organization Address [facility]/ZIP Co de Phone Number [facility] [address] [place] [address], [facility] [phone] * (ABNORMAL) VITAMIN D 25-HYDROXY (05/14/2020 10:18 AM CDT) Vitamin D, 25 Hydroxy 23.0(L) See comment: ng/mL 05/14/2020 11:48 AM CDT [facility] Comment: The recommendations for 25-Hydroxy Vitamin [...] LAB - CHEMISTRY ORDERABLES Performing Organization Address [facility] Co de Phone Number [facility] [address] [place] [address], [place] [phone] * (ABNORMAL) URIC ACID BLOOD (05/14/2020 10:18 AM CDT) Pathologist [facility] Uric Acid 8.4(H) 2.6 - 7.2 mg/dL 05/14/2020 11:41 AM CDT [facility] Blood BLOOD SPECIMEN / Unknown Lab Venipuncture / Unknown 05/14/2020 10:18 AM CDT 05/14/2020 10:55 AM CDT Glenny Martin MD LAB - CHEMISTRY ORDERABLES [facility] [address] [place] [address], [facility] [phone] * HLA TYPING DNA LOW RESOLUTION DR,DQ (05/14/2020 10:18 AM CDT) [facility] DR DQ Low Resolution DRB1-1 04 05/29/2020 7:59 AM CDT [facility] ([facility]) DR DQ Low Resolution DRB1-2 11 05/29/2020 7:59 AM CDT [facility] ([facility]) DR DQ Low Resolution DQB1-1 03 (DQ7) 05/29/2020 7:59 AM CDT [facility] ([facility]) DR DQ Low Resolution DQB1-2 03 (DQ8) 05/29/2020 7:59 AM CDT [facility] ([facility]) DR DQ Low Resolution DRB3-1 02 05/29/2020 7:59 AM CDT [facility] ([facility]) DR DQ Low Resolution DRB3-2 Negative 05/29/2020 7:59 AM CDT [facility] ([facility]) DR DQ Low Resolution DRB4-1 01 05/29/2020 7:59 AM CDT [facility] ([facility]) DR DQ Low Resolution DRB4-2 Negative 05/29/2020 7:59 AM CDT [facility] ([facility]) DR DQ Low Resolution DRB5-1 Negative 05/29/2020 7:59 AM CDT [facility] ([facility]) DR DQ Low Resolution DRB5-2 Negative 05/29/2020 7:59 AM CDT [facility] ([facility]) DR DQ Low Resolution Methodology SSOP 05/29/2020 7:59 AM CDT [facility] ([facility]) Comment DR DQ Low Resolution - 05/29/2020 7:59 AM CDT [facility] ([facility]) DR DQ Low Resolution test date 05/28/2020 05/29/2020 7:59 AM CDT [facility] ([facility]) Comment: This test was developed and its performance characteristics determined by the [facility]. ??It has not been [...] high complexity clinical laboratory testing. ??CLIA ID# [id number] Performed at: ??[facility], [address] @ [place], [place] ??[phone] Senior Tax Specialist: Jarrod Chin MD, Blood BLOOD SPECIMEN / Unknown Lab Venipuncture / Unknown 05/14/2020 10:18 AM CDT 05/14/2020 10:52 AM CDT Glenny Martin MD LAB - BLOOD BAN K ORDERABLES [facility] ([facility]) [address] [place] [address], [facility] * HLA TYPING DNA LOW RESOLUTION A,B,C (05/14/2020 10:18 AM CDT) ABC DNA A1 03 05/29/2020 7:59 AM CDT [facility] ([facility]) ABC DNA A2 29 05/29/2020 7:59 AM CDT [facility] ([facility]) ABC DNA B1 07 05/29/2020 7:59 AM CDT [facility] ([facility]) ABC DNA B2 44 05/29/2020 7:59 AM CDT [facility] ([facility]) ABC DNA BW1 6 05/29/2020 7:59 AM CDT [facility] ([facility]) ABC DNA BW2 4 05/29/2020 7:59 AM CDT [facility] ([facility]) ABC DNA C1 07 05/29/2020 7:59 AM CDT [facility] ([facility]) ABC DNA C2 - 05/29/2020 7:59 AM CDT [facility] ([facility]) ABC DNA Methodology SSOP 05/29 7:59 AM CDT [facility] ([facility]) Comment ABC DNA - 0 7:59 AM CDT [facility] ([facility]) ABC DNA Test Date 0 05/29/2020 7:59 AM CDT [facility] ([facility]) Comment: This test was developed and its performance characteristics determined by the [facility]. ??It has not been [...] high complexity clinical laboratory testing. ??CLIA ID# [id number] Performed at: ??[facility], [address] @ [place], [place] ??[phone] Senior Tax Specialist: Jarrod Chin MD, Blood BLOOD SPECIMEN / Unknown Lab Venipuncture / Unknown 05/14/2020 10:18 AM CDT 05/14/2020 10:52 AM CDT Glenny Martin MD LAB - BLOOD BAN K ORDERABLES [facility] ([facility]) [address] [place] [address], [facility] * VARICELLA ZOSTER ANTIBODY IGG (05/14/2020 10:18 AM CDT) [facility] Varicella zoster Virus Antibody IgG 3705.0 IV 05/16/2020 2:46 PM CDT [facility] ([facility]) Comment: INTERPRETIVE INFORMATION: VZV Ab, IgG 134.9 [...] laboratory at the same time. Performed By: [facility] [address] [place] [address] Equipment Records Supervisor: Valerie Mast MD Blood BLOOD SPECIMEN / Unknown Lab Venipuncture / Unknown 05/14/2020 10:18 AM CDT 05/14/2020 10:57 AM CDT Glenny Martin MD LAB - CHEMISTRY ORDERABLES Performing Organization Address [facility]/State/[facility] Co de Phone Number [facility]) [address] [place] [address], [facility] * MUMPS ANTIBODY IGG (05/14/2020 10:18 AM CDT) Mumps Virus Antibody IgG 17.2 AU/mL 05/16/2020 6:30 PM CDT [facility] ([facility]) Comment: INTERPRETIVE INFORMATION: Mumps Ab, IgG by [...] laboratory at the same time. Performed By: [facility] [address] [place] [address] Equipment Records Supervisor: Valerie Mast MD Blood BLOOD SPECIMEN / Unknown Lab Venipuncture / Unknown 05/14/2020 10:18 AM CDT 05/14/2020 10:57 AM CDT Glenny aMrtin MD LAB - CHEMISTRY ORDERABLES [facility]) [address] [place] [address], [facility] * RUBEOLA ANTIBODY IGG (05/14/2020 10:18 AM CDT) Measles (Rubeola) Antibody IgG >300.0 AU/mL 05/16/2020 2:46 PM CDT [facility] ([facility]) Comment: INTERPRETIVE INFORMATION: Measles (Rubeola) Antibody, IgG [...] laboratory at the same time. Performed By: [facility] [address] [place] [address] Equipment Records Supervisor: Valerie Mast MD Blood BLOOD SPECIMEN / Unknown Lab Venipuncture / Unknown 05/14/2020 10:18 AM CDT 05/14/2020 10:57 AM CDT Glenny Martin MD LAB - CHEMISTRY ORDERABLES Performing Organization Address [facility]/State/[facility] Co de Phone Number [facility] ([facility]) [address] [place] [address], [facility] * OPIATES BLOOD (05/14/2020 10:18 AM CDT) [facility] [address] Opiates Screen Negative 05/17/2020 12:06 AM CDT [facility] ([facility]) Comment:REFERENCE RANGE: thr shold: 10 ng/mL Oxycodone Screen Negative 05/17/20 12:06 AM CDT [facility] ([facility]) Comment:REFERENCE RANGE: thr shold: 10 ng/mL Specimen Type Comment 05/17/2020 12:06 AM CDT [facility] ([facility]) Comment: WHOLE BLOOD This specimen was screened by immunoassay at the thresholds listed above. Presumptive positive results have not been confirmed by an alternate method; results are intended for clinical medical purposes. Please contact the laboratory if confirmatory testing is desired. This test was developed and its performance characteristics determined by [employer]. It has not been cleared or approved by the Food and Drug Administration. Blood BLOOD SPECIMEN / Unknown Lab Venipuncture / Unknown 05/14/2020 10:18 AM CDT 05/14/2020 10:53 AM CDT Narrative [facility] ([facility]) - 05/17/2020 12:06 AM CDT Performed at: ??01 - [employer] [address] ??[id number] Senior Tax Specialist: Radha Callahan [facility], Phone: ??[phone] Glenny Martin MD LAB - CHEMISTRY ORDERABLES [facility] ([facility]) [address] [id number] * COCAINE METABOLITE QUANT (05/14/2020 10:18 AM CDT) [facility] [address] Cocaine and Metabolite Blood <20 ng/mL 05/17/2020 11:07 PM CDT [facility] ([facility]) Comment: INTERPRETIVE INFORMATION: Cocaine Metabolite, ?Serum or Plasma, ?Quantitative Methodology: Quantitative Gas Chromatography- Mass Spectrometry Positive cutoff: 20 ng/mL ?? For medical purposes only; not valid for forensic use. The concentration value must be greater than or equal to the cutoff to be reported as positive. Interpretive questions should be directed to the laboratory. Test developed and characteristics determined by [facility]. See Compliance Statement B: [employer]/CS Performed By: [facility] [address] [place] [id number] Equipment Records Supervisor: Valerie Mast MD Blood BLOOD SPECIMEN / Unknown Lab Venipuncture / Unknown 05/14/2020 10:18 AM CDT 05/14/2020 10:55 AM CDT Glenny Martin MD LAB - CHEMISTRY ORDERABLES Performing Organization Address [facility]/ZIP Co de Phone Number [facility] ([facility]) [address] * AMPHETAMINE BLOOD CONFIRMATION (05/14/2020 10:18 AM CDT) Amphetamines Confirmation <20 ng/mL 05/20/2020 12:29 PM CDT [facility] ([facility]) Comment: INTERPRETIVE INFORMATION: Amphetamines, Serum or ?Plasma, [...] laboratory. Test developed and characteristics determined by [facility]. See Compliance Statement B: [employer]/CS Methamphetamine Confirmation <20 ng/mL 05/20/2020 12:29 PM CDT [facility] ([facility]) MDA Confirmation <20 ng/mL 05/20/20 20 12:29 PM CDT [facility]) MDMA Confirm <20 ng/mL 05/20/2020 12:29 PM CDT [facility]) MDEA Confirmation <20 ng/mL 020 12:29 PM CDT [facility]) Comment: Performed By: [facility] [address] [place] [address] Equipment Records Supervisor: Valerie Mast MD Blood BLOOD SPECIMEN / Unknown Lab Venipuncture / Unknown 05/14/2020 10:18 AM CDT 05/14/2020 10:57 AM CDT Glenny Martin MD LAB - CHEMISTRY ORDERABLES Performing Organization Address [facility]/ZIP Co de Phone Number [facility] ([facility]) [address] * NICOTINE + METABOLITES BLOOD (05/14/2020 10:18 AM CDT) Nicotine <2 ng/mL 05/18/2020 10:08 PM CDT [facility] ([facility]) Comment: Consistent with abstinence from nicotine-containing products [...] ?? Test developed and characteristics determined by [facility]. See Compliance Statement B: [employer]/CS Performed By: [facility] [address] [place] [address] Equipment Records Supervisor: Valerie Mast MD 3-Hydroxy Cotinine <2 ng/mL 2019 10:08 PM CDT [facility]) Cotinine <2 ng/mL 05/18/2020 10:08 PM CDT [facility]) Blood BLOOD SPECIMEN / Unknown Lab Venipuncture / Unknown 05/14/2020 10:18 AM CDT 05/14/2020 10:57 AM CDT Glenny Martin MD LAB - CHEMISTRY ORDERABLES [facility] ([facility]) [address] [place] [address], [facility] * ALCOHOL ETHYL BLOOD (05/14/2020 10:18 AM CDT) [facility] Interpretation Ethanol None Detected None Detected mg/dL 05/14/2020 11:41 AM CDT [facility] Comment:Ethanol levels less than 10 mg/dL are resulted as None detected . Blood BLOOD SPECIMEN / Unknown Lab Venipuncture / Unknown 05/14/2020 10:18 AM CDT 05/14/2020 10:55 AM CDT Glenny Martin MD LAB - CHEMISTRY ORDERABLES Performing Organization Address [facility] Co de Phone Number [address] [address], [facility] [phone] * SYPHILIS ANTIBODY CASCADING REFLEX (05/14/2020 10:18 AM CDT) [facility] Treponema pallidum Antibody Non-react bianca Non-react bianca 05/14/2020 11:47 AM CDT [facility] Comment: No Laboratory evidence of syphilis infection. ?? Note: ??Circulating antibodies may be low or undetectable in early infection. ??If recent exposure is suspected, re-draw sample in 2-4 weeks and repeat testing. Blood BLOOD SPECIMEN / Unknown Lab Venipuncture / Unknown 05/14/2020 10:18 AM CDT 05/14/2020 10:55 AM CDT Glenny Martin MD LAB - SEROLOGY ORDERABLES Performing Organization Address [facility] Co de Phone Number [address] [address], [facility] [phone] * (ABNORMAL) HEMOGLOBIN A1C (05/14/2020 10:18 AM CDT) [facility] Hemoglobin A1c 7.7(H) 4.4 - 6.3 % 05/14/2020 3:37 PM CDT [facility] Estimated Average Glucose 174 mg/dL 05/14/2020 3:37 PM CDT [facility] Comment: HbA1c Interpretation: Treatment target values recommended by ADA and other clinical organizations should be used to evaluate metabolic control in patients. Treatment Target Values: Normal : < 5.7% Pre-diabetes: 5.7-6.4% Diabetes: Equal to or greater than 6.5% Reference: [place] [employer] Standards of Care in Diabetes -2014 In patients 70 years and older consider HbA1c target range of 7.0-7.5% Reference: ??Diabetes Mellitus in Older People: Position Statement on behalf of the International Association of Gerontology and Geriatrics (IAGG), the Diabetes Working Democrat for Older People (EDWPOP), and the International Task Force of Experts in Diabetes. ??Hermelindo Remy, et al. J [place] [employer] Association. 2012 Test results diagnostic of diabetes should be repeated for confirmation. The Sebia Capillary 2 assay for the measurement of HbA1c is a National Glycohemoglobin Standardization Program (NGSP)certified method. Blood BLOOD SPECIMEN / Unknown Lab Venipuncture / Unknown 05/14/2020 10:18 AM CDT 05/14/2020 10:55 AM CDT Glenny Martin MD LAB - CHEMISTRY ORDERABLES Performing Organization Address [facility] de Phone Number [facility] [address] [address], [facility] [phone] * (ABNORMAL) MADIHA-CA VIRUS ANTIBODY TO VCA IGG (05/14/2020 10:18 AM CDT) Madiha-Ca Virus Antibody IgG Viral Capsid Antigen 115.0(H) 0.0 - 21.9 U/mL 05/16/2020 5:10 PM CDT [facility] ([facility]) Comment: INTERPRETIVE INFORMATION: Madiha-Ca Virus Antibody to ?Viral Capsid Antigen, IgG ??17.9 U/mL or less.......Not Detected ??18.0-21.9 U/mL..........Indeterminate - Repeat testing in ?10-14 days may be helpful. ??22.0 U/mL or greater....Detected Performed By: [facility] [address] [place] [address] Equipment Records Supervisor: Valerie Mast MD Blood BLOOD SPECIMEN / Unknown Lab Venipuncture / Unknown 05/14/2020 10:18 AM CDT 05/14/2020 10:55 AM CDT Glenny Martin MD LAB - CHEMISTRY ORDERABLES [facility]) [address] * CYTOMEGALOVIRUS ANTIBODY IGG BLOOD (05/14/2020 10:18 AM CDT) [facility] Cytomegalovirus Antibody IgG >10.00 U/mL 05/16/2020 6:28 PM CDT [facility] ([facility]) Comment: INTERPRETIVE INFORMATION: Cytomegalovirus Antibody, IgG ??0.59 [...] laboratory at the same time. Performed By: [facility] [address] [place] [address] Equipment Records Supervisor: Valerie Mast MD Blood BLOOD SPECIMEN / Unknown Lab Venipuncture / Unknown 05/14/2020 10:18 AM CDT 05/14/2020 10:55 AM CDT Glenny Martin MD LAB - CHEMISTRY ORDERABLES [facility] ([facility]) [address] * HEPATITIS C ANTIBODY (05/14/2020 10:18 AM CDT) Hepatitis C Antibody Non-react bianca Non-reac tive 05/14/2020 11:49 AM CDT [facility] Comment:Hepatitis C Antibody screen indicates [...] LAB - CHEMISTRY ORDERABLES Performing Organization Address [facility]/ZIP Co de Phone Number [facility] [address] [place] [address], [facility] [phone] * (ABNORMAL) HEPATITIS B SURFACE ANTIBODY (05/14/2020 10:18 AM CDT) Pathologist [facility] Hepatitis B Virus Surface Antibody Reactive( A) Non-react bianca 05/14/2020 11:47 AM CDT [facility] Comment: > 12 mIU/mL Hepatitis B surface Antibody (HBsAb). Reactive for HBsAb - individual is considered immune to Hepatitis B Virus infection. Hepatitis B Surface Antibody Quantitative 72.7(H) <8.0 mIU/mL 05/14/2020 11:47 AM CDT [facility] Comment: Hepatitis B Surface Antibody Numeric Result Interpretation: ? Nonreactive: ?<8.0 mIU/mL ? Indeterminate: ??8.0 - 12.0 mIU/mL ? Reactive: ?>12.0 mIU/mL ? Blood BLOOD SPECIMEN / Unknown Lab Venipuncture / Unknown 05/14/2020 10:18 AM CDT 05/14/2020 10:55 AM CDT Glenny Martin MD LAB - CHEMISTRY ORDERABLES [address] [address], [place] [phone] * HEPATITIS B CORE ANTIBODY (05/14/2020 10:18 AM CDT) HBc Antibody Total Non-reacti ve Non-reacti ve 05/14/2020 11:47 AM CDT [facility] Blood BLOOD SPECIMEN / Unknown Lab Venipuncture / Unknown 05/14/2020 10:18 AM CDT 05/14/2020 10:55 AM CDT Glenny Martin MD LAB - CHEMISTRY ORDERABLES Performing Organization Address City/[facility]/ZIP Co de Phone Number [address] [address], [place] [phone] * HEPATITIS B SURFACE ANTIGEN W RFLX CONFIRMATION (05/14/2020 10:18 AM CDT) Hepatitis B Virus Surface Antigen Non-reacti ve Non-reacti ve 05/14/2020 11:47 AM CDT [facility] Blood BLOOD SPECIMEN / Unknown Lab Venipuncture / Unknown 05/14/2020 10:18 AM CDT 05/14/2020 10:55 AM CDT Glenny Martin MD LAB - CHEMISTRY ORDERABLES [address] [address], [place] [phone] * (ABNORMAL) LIPID PROFILE (05/14/2020 10:18 AM CDT) Cholesterol Total 137 <200 mg/dL 05/14/2020 11:41 AM CDT [facility] HDL 28(L) >40 mg/dL 05/14/2020 11:41 AM [facility] Comment: ATP III Classification of HDL Cholesterol: ? <40 mg/dL: ??Considered a major risk factor. ? >60 mg/dL: ??Considered a negative risk factor. ? LDL Calculated 70 <100 mg/dL 05/14/2020 11:41 AM [facility] Comment: ATP III Classification of LDL Cholesterol: ?<100 mg/dL: ??Optimal ? 100 - 129 mg/dL: ??Near Optimal/Above Optimal ? 130 - 159 mg/dL: ??Borderline High ? 160 - 189 mg/dL: ??High ?>190 mg/dL: ??Very High ? Triglycerides 196(H) <150 mg/dL 05/14/2020 11:41 AM [facility] Comment: ATP III Classification of Triglycerides: ?<150 mg/dL: ??Normal ? 150 - 199 mg/dL: ??Borderline High ? 200 - 400 mg/dL: ??High ?>500 mg/dL: ??Very High Blood BLOOD SPECIMEN / Unknown Lab Venipuncture / Unknown 05/14/2020 10:18 AM CDT 05/14/2020 10:55 AM CDT Glenny Martin MD LAB - CHEMISTRY ORDERABLES [facility] [address] [place] [address], [facility] [phone] * (ABNORMAL) PHOSPHORUS BLOOD (05/14/2020 10:18 AM CDT) Phosphorus 5.1(H) 2.3 - 4.7 mg/dL 05/14/2020 11:41 AM T [facility] Blood BLOOD SPECIMEN / Unknown Lab Venipuncture / Unknown 05/14/2020 10:18 AM CDT 05/14/2020 10:55 AM T Glenny Martin MD LAB - CHEMISTRY ORDERABLES [facility] [address] [place] [address], [facility] [phone] * (ABNORMAL) COMPREHENSIVE METABOLIC PANEL (05/14/2020 10:18 AM CDT) BUN 65(H) 7 - 26 mg/dL 05/14/2020 11:41 AM [facility] Creatinine 5.6(H) 0.6 - 1.2 mg/dL 05/14/2020 11:41 AM [facility] Sodium 142 136 - 145 mmol/L 05/14/2020 11:41 AM [facility] Potassium 3.7 3.5 - 4.5 mmol/L 05/14/2020 11:41 AM [facility] Chloride 101 98 - 107 mmol/L 05/14/2020 11:41 AM [facility] CO2 28 22 - 29 mmol/L 05/14/2020 11:41 AM [facility] Glucose 162(H) 70 - 115 mg/dL 05/14/2020 11:41 AM [facility] Calcium 9.0 8.4 - 10.2 mg/dL 05/14/2020 11:41 AM [facility] Protein Total 6.9 6.0 - 8.3 g/dL 05/14/2020 11:41 AM [facility] Albumin 3.7 3.4 - 5.0 g/dL 05/14/2020 11:41 AM [facility] Bilirubin Total 0.7 0.2 - 1.2 mg/dL 05/14/2020 11:41 AM [facility] Alkaline Phosphatase 140 40 - 150 Units/L 05/14/2020 11:41 AM [facility] ALT 43 0 - 55 Units/L 05/14/2020 11:41 AM [facility] AST 29 5 - 34 Units/L 05/14/2020 11:41 AM [facility] Anion Gap 17 8 - 18 05/14/2020 11:41 AM [facility] BUN/Creatinine Ratio 12 7 - 23 05/14/2020 11:41 AM [facility] Osmolality Calculated 316(H) 270 - 300 mOsm/kg 05/14/2020 11:41 AM [facility] Albumin/Globulin Ratio 1.2 1.1 - 2.3 05/14/2020 11:41 AM [facility] eGFR 11(L) >60 mL/min/1.7 3 m2 05/14/2020 11:41 AM [facility] Blood BLOOD SPECIMEN / Unknown Lab Venipuncture / Unknown 05/14/2020 10:18 AM CDT 05/14/2020 10:55 AM T Glenny Martin MD LAB - CHEMISTRY ORDERABLES [facility] [address] [place] [address], [facility] [phone] * (ABNORMAL) CBC W AUTO DIFFERENTIAL (05/14/2020 10:18 AM [facility]) WBC 5.0 3.5 - 10.5 10? 3 /uL 05/14/2020 11:03 AM [facility] RBC 3.45(L) 4.30 - 5.70 10? 6 /uL 05/14/2020 11:03 AM [facility] Hemoglobin 10.7(L) 13.5 - 17.5 g/dL 05/14/2020 11:03 AM [facility] Hematocrit 31.1(L) 39.0 - 50.0 % 05/14/2020 11:03 AM [facility] MCV 90.1 81.0 - 97.0 fL 05/14/2020 11:03 AM [facility] MCH 31.0 28.0 - 34.0 pg 05/14/2020 11:03 AM [facility] MCHC 34.4 32.0 - 36.0 g/dL 05/14/2020 11:03 AM [facility] Platelet Count 232 150 - 400 10? 3 /uL 05/14/2020 11:03 AM [facility] RDW-SD 42.4 36.0 - 50.0 fL 05/14/2020 11:03 AM [facility] RDW-CV 12.9 11.2 - 14.8 % 05/14/2020 11:03 AM [facility] MPV 9.8 9.3 - 12.8 fL 05/14/2020 11:03 AM [facility] nRBC Absolute 0.00 0 10? 3 /uL 05/14/2020 11:03 AM [facility] nRBC Auto 0.0 0 /100 WBC 05/14/2020 11:03 AM [facility] Neutrophils % 54.8 35.0 - 70.0 % 05/14/2020 11:03 AM [facility] Lymphocytes % 31.2 19.7 - 55.1 % 05/14/2020 11:03 AM [facility] Monocytes % 9.4 3.0 - 15.0 % 05/14/2020 11:03 AM [facility] Eosinophils % 3.8 0.0 - 6.0 % 05/14/2020 11:03 AM [facility] Basophil % 0.6 0.0 - 1.5 % 05/14/2020 11:03 AM [facility] Neutrophils Absolute 2.7 1.6 - 7.0 10? 3 /uL 05/14/2020 11:03 AM [facility] Lymphocyte Absolute 1.6 0.8 - 2.9 10? 3 /uL 05/14/2020 11:03 AM [facility] Monocytes Absolute 0.47 0.14 - 0.66 10? 3 /uL 05/14/2020 11:03 AM [facility] Eosinophils Absolute 0.19 0.00 - 0.45 10? 3 /uL 05/14/2020 11:03 AM [facility] Basophils Absolute 0.03 0.00 - 0.06 10? 3 /uL 05/14/2020 11:03 AM [facility] Immature Granulocytes % 0.2 0.0 - 1.0 % 05/14/2020 11:03 AM [facility] Blood BLOOD SPECIMEN / Unknown Lab Venipuncture / Unknown 05/14/2020 10:18 AM CDT 05/14/2020 10:55 AM CDT Glenny Martin MD LAB - HEMATOLOG Y ORDERABLES [facility] [address] [place] [address], [place] [phone] * BLOOD TYPE ABO+ RH PANEL (05/14/2020 10:18 AM CDT) ABO Rh A POS 05/14/2020 12:11 PM CDT [facility] Blood BLOOD SPECIMEN / Unknown Lab Venipuncture / Unknown 05/14/2020 10:18 AM CDT 05/14/2020 11:29 AM CDT Glenny Martin MD LAB - BLOOD BAN K ORDERABLES Performing Organization Address [facility] Co de Phone Number [facility] [address] [place] [address], [place] [phone] * PROTEIN C ACTIVITY (05/14/2020 10:18 AM CDT) Protein C Activity 155 83 - 168 % 05/16/2020 10:47 PM CDT [facility] ([facility]) Comment: INTERPRETIVE INFORMATION: Protein C, Functional Patients [...] reference intervals for this test in the [facility] ([facility]). Performed by [facility], [address] [place] [id number] [email or web address], Valerie Mast MD, Lab. Director Blood BLOOD SPECIMEN / Unknown Lab Venipuncture / Unknown 05/14/2020 10:18 AM CDT 05/14/2020 10:48 AM CDT Glenny Martin MD LAB - COAGULATI ON ORDERABLES [facility] ([facility]) [address] * RUBELLA ANTIBODY IGG TITER (05/14/2020 10:18 AM CDT) Rubella Antibody IgG 50.1 IU/mL 05/16/2020 6:32 PM CDT [facility] ([facility]) Comment: INTERPRETIVE INFORMATION: Rubella Antibody, IgG ??Less [...] the amount of antibody present. Performed By: [facility] [address] [place] [address] Equipment Records Supervisor: Valerie Mast MD Blood BLOOD SPECIMEN / Unknown Lab Venipuncture / Unknown 05/14/2020 10:18 AM CDT 05/14/2020 10:56 AM CDT Glenny Martin MD LAB - SEROLOGY ORDERABLES [facility] ([facility]) [address] * TYPE + SCREEN PANEL (05/14/2020 10:06 AM CDT) Pathologist [facility] Antibody Screen NEG 0 12:17 PM CDT [facility] ABO Rh A POS 05/14/2020 12:17 PM CDT [facility] Blood Bank BLOOD SPECIMEN / Unknown Lab Venipuncture / Unknown 05/14/2020 10:06 AM CDT 05/14/2020 11:30 AM CDT Glenny Martin MD LAB - BLOOD BAN K ORDERABLES [facility] [address] [place] [address], [facility] [phone] documented in this encounter Visit Diagnoses Diagnosis Pre-transplant evaluation for kidney transplant- Primary documented in this encounter Care Teams Script Manager Relationship Specialty Start Date End Date Aditya Castro Update Information PCP - General 03/06/19 documented as of this encounter
--- OUTSIDE RECORDS SUMMARY | 2024-09-07 23:23 | XMS_ITS | Encounter Summary ---
Author Organization [facility] Address [address] [place] [address] Care Team Providers Care [employer] Consultant Name Role Phone Aditya Castro Primary Care Provider Unavailab le Reason for Visit * Reason Comments Kidney Transplant Evaluation Encounter Details Date Type Department Care Team (Late st Contact Info) Description 03/25/2020 Telephone [facility] [address] [place] [address] Carey Chavez Kidney Transplant Evaluation [...] on filedocumented in this encounter Care Teams [employer] Consultant Relationship Specialty Start Date End Date Aditya Castro Update Information PCP - General 03/06/19 documented as of this encounter
--- OUTSIDE RECORDS SUMMARY | 2024-09-07 23:23 | XMS_ITS | CONTINUITY OF CARE DOCUMENT ---
Author Name archana rindemian Address Unknown Organization [facility] Address [id number] [place] [address] [address] [place] [address] Phone [phone] Care Team Providers Care Tea Leaf Reader Name Role Phone Shannon ARNOLD, [place] Unavailable STEPHANIE CORREA MD Unavailable STEPHANIE CORREA MD Unavailable PROBLEMS Condition Status Date Provider Notes CABG post active Annemarie Connelly RN Valve replacement active Annemarie Connelly RN jail anticoagulant therapy active Annemarie Connelly RN Coronary artery disease active Hamlet guzman MD [...] Hamlet Ortega MD Aortic insufficiency active Hamlet Light C A B G: active Hamlet Ortega MD (Status post) 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 GFR <15 active Hamlet Ortega MD Valve Surgery active Hamlet Ortega MD (Stat us post) Family History of Hypertension: active ? Michael Ortega MD ENCOUNTERS Date Type Provider Location Encounter Diag nosis - In-person encounter Office Visit Hamlet Ortega MD [facility] Office - In-person encounter Office Visit Hamlet Ortega MD [place] [facility] C A B G:Valve SurgeryCKD stage ESRD on dialysis GFR <15 - In-person encounter Office Visit Hamlet Ortega MD [place] [facility] - In-person encounter Office Visit Hamlet Ortega MD [facility] Office - In-person encounter Office Visit [place] Ortega MD [facility] Office OverweightAortic insufficiency - In-person encounter Office Visit Hamlet Ortega MD [place] [facility] - In-person encounter Office Visit Hamlet Ortega MD [place] [facility] - In-person encounter Office Visit Hamlet Ortega MD [place] [facility] - In-person encounter Office Visit [place] Ortega MD [place] [facility] - In-person encounter Office Visit [place] Ortega MD [place] [facility] - In-person encounter Office Visit [place] Ortega MD [place] [facility] - In-person encounter Office Visit [place] Ortega MD [place] [facility] - In-person encounter Office Visit Hamlet Ortega MD [facility] - In-person encounter Office Visit [place] Ortega MD [place] [facility] - In-person encounter Office Visit [place] Ortega MD [place] [facility] - In-person encounter Office Visit [place] Ortega MD [place] [facility] - In-person encounter Office Visit [place] Ortega MD [place] [facility] - In-person encounter Office Visit Ham[place] Ortega MD [place] [facility] Dizziness - In-person encounter Office Visit [place] Ortega MD [place] [facility] - In-person encounter Office Visit [place] Ortega MD [facility] Office - In-person encounter Office Visit [place] Ortega MD [place] [facility] - In-person encounter Office Visit Ham[place] Ortega MD [place] [facility] Family History of Hypertension:Coronary artery diseaseShortness of breathDyspnea on exertionChest pain-type to be determinedDiabetes, Type 1HyperlipidemiaHTN essentialSleep apnea, obstructiveAcute deep venous thrombosis of leg, rightHypertensionCoronar y Heart Disease VITAL SIGNS Date Observation Value Provider Body Mass Index (Ratio) 40.31 kg/m2 Michael Ortega MD blood pressure, diastolic 79 mm[Hg] Samantha walsh [facility] blood pressure, systolic 169 mm[Hg] Molly lorena [facility] oxygen saturation, oximetry 100 % Lexus [facility] pulse rate 94 /min Lexus [facility] weight E&M 281 [lb_av] [place]us [facility] height E&M 70 [in_i] Lexus [facility] blood pressure, diastolic 101 mm[Hg] Chapo dena [place] blood pressure, systolic 157 mm[Hg] Vannahayden garay [place] oxygen saturation, oximetry 96 % [facility] [place] pulse rate 122 /min [facility] [place] blood pressure, cuff size regular Chapo dena [place] Body Mass Index (Ratio) 38.62 kg/m2 [facility] weight in kilograms E&M 122.11 kg [facility] weight E&M 269.2 [lb_av] [facility] 70 [in_i] [facility] height in centimeters E&M [...] Saniya Godwin weight E&M 264 [lb_av] Saniya oGdwin blood pressure, cuff size large An tami Godwin height E&M 70 [in_i] Saniya Godwin Body Mass Index (Ratio) 38.16 kg/m2 Michael Ortega MD blood pressure, cuff size regular Ja blood pressure, diastolic 79 mm[Hg] Alexander blood pressure, systolic 148 mm[Hg] [facility] pulse rate 79 /min Omari respiratory rate E&M 12 /min Omari oxygen saturation, oximetry 97 % [facility] weight E&M 266 [lb_av] Omari height E&M 70 [in_i] Omari Body Mass Index (Ratio) 37.59 kg/m2 Michael Ortega MD blood pressure, cuff size large Ja blood pressure, diastolic 95 mm[Hg] Alexander blood pressure, systolic 160 mm[Hg] [facility] pulse rate 75 /min Omari respiratory rate [...] [lb_av] Miriam Ferrera height E&M 70 [in_i] iMriam Ferrera Body Mass Index (Ratio) 38.59 kg/m2 [...] ra Salcido weight E&M 300 [lb_av] Nina Saclido height E&M 70 [in_i] Nina [place]cido [...] Karley Campbel l height E&M 70 [in_i] Kraley Campbel l Body Mass Index (Ratio) 38.16 [...] RN international normalized ratio (INR) 1.4 Robin Aervalos RN Normal prothrombin time (patient) 17.1 s [...] LinkLogic 3.5-5.2 sodium, serum 140 mmol/L [employer] [id number] 3587/03/ 21 urea nitrogen/creatini ne ratio, serum 17 [...] Not Estab. platelet count 261 X10E3/UL [employer] [id number]/03/ 21 red blood cell distribution width 13.9 [...] to 1 tab daily Robin Villarreal RN jail anticoagulant therapy warfarin 3 mg tablet completed Take 1 tablet by mouth every evening EXCEPT on Mon Wed and Mon , take 1 and one half tablet. (4.5 mg) - Annemarie Connelly RN tank terminal gauger anticoagulant therapy warfarin 2 mg tablet completed 1 tab on 01/19, 01/20, 01/21, 01/22 - Robin Villarreal RN levothyroxine 25 mcg tablet active Take 1 tablet by mouth every morning Annemarie Connelly RN warfarin 3 mg tablet completed Take 1 tablet by mouth every evening EXCEPT on Tue and Th take one half tablet. (1.5 mg) - Moustapha Koehler RN jail anticoagulant therapy warfarin 2 mg tablet completed [...] completed 12.5 twice a day - Hamlet Oretga MD ranolazine 500 mg tablet extended release [...] Observation Value Provider alcohol use no Hamlet Lgiht passive cigarette sm kat exposure no Hamlet [...] MD passive cigarette sm kat exposure no gNuyễn Subramanian smoking status Never smoker Nguyễn acevedo [...] MD smoking status Never smoker [facility] social history E&M Marital Statu s: Michael asher: 3 O ccupation: Disabled Smoking History: P atient has never smoked. Hamlet Ortega MD social history reviewed E&M revi ewed - no changes required Hamlet Ortega MD alcohol use no Karley Reese l passive cigarette sm kat exposure no Karley Holly smoking status Never smoker Karley Terrazaschad rosas social history E&M Marital Statu s: Micahel snyderen: 3 O ccupation: Disabled Smoking History: [...] Payer name Policy type / Coverage type [employer]ke red [employer] party ID [id number] COMPLETE CARE [id number] (PPO C-SNP) Commercial insurance [employer] [id number] [facility] Medicaid 3 [id number] ADVANCE DIRECTIVES Name Date DISCUSSED - NO DECISION MADE TREATMENT PLAN Date Name Performer [id number],SH[place]let MD [id number],SHamlet MD [id number],SHamlet MD [id number],SHamlet MD [id number],SHamlet MD [id number],SHamlet MD [id number],SHamlet MD [id number],S, Hamlet Ramada n [place] [id number],S, Hamlet Ramada n [place] [id number],S, Hamlet Ramada n [place] [id number],S, Hamlet Ramada n [place] [id number],S, Hamlet Ramada n MA [id number],S, Hamlet Ramada n [place] [id number],C,T he patient is using BiPAP on a regular basis. The patient has been benefiting from therapy and should continue use. Hamlet Ramadan MA [id number],S, Hamlet Ramada n MA [id number],S, Hamlet Ramada n MA [id number],S, Hamlet Ramada n MA [id number],S, Hamlet Ramada n MA [id number],S, Hamlet Ramada n [place] [id number],S, Hamlet Ramada n MA [id number],S, Hamlet Ramada n MA [id number],S, Hamlet Ramada n MA [id number],S, Hamlet Ramada n MA [id number],S, Hamlet Ramada n MA [id number],S, Hamlet Ramada n MA [id number],S, Hamlet Ramada n MA [id number],S, Hamlet Ramada n [place] [id number],C,T he patient is using CPAP on a regular basis. The patient has been benefiting from therapy and should continue use. Hamlet Ortega MD [id number],B, Hamlet Loredodewayne guzman MD [id number],S, Hamlet Loredodewayne guzman MD [id number],B, [place] Merle guzman MD [id number],B, [place] Merle guzman MD [id number],S, Hamlet Loredodewayne guzman MD [id number],S, Hamlet Loredodewayne guzman MD [id number],B, [place] Merle guzman MD [id number],S, Hamlettim Loredodewayne guzman MD [id number],S,L ast stress 01/08 had some abnormalities that fit with known coronary anatomy. No significant symptoms at this point. Will follow closely, no cath at this point. Patient is encouraged to increase activity as tolerated, particularly exercise in form of walking on treadmill. Hamlet Ortega MD [id number],B, [place] guzman MD [id number],S, [place] Merle guzman MD [id number],S, [place] Merle guzman MD [id number],C,T he patient is using CPAP on a regular basis. The patient has been benefiting from therapy and should continue use. Hamlet Ortega MD [id number],S, Hamlet Loredodewayne guzman MD [id number],S,L ast stress 01/08 had some abnormalities that [...] Hamlet Otrega MD Cardiology Hamlet Ortega MD Cardiology:The patie [...] Ortega MD Cardiology Hamlet Ortega MD Cardiology Hamlte Ortega MD Cardiology Ham[place] Ortega MD Cardiology [...]
--- OUTSIDE RECORDS SUMMARY | 2024-09-07 23:23 | XMS_ITS | Encounter Summary ---
Author Organization [facility] Address [address] [place] [address] Care Team Providers Care Blue Line Trimmer Name Role Phone Aditya Castro Primary Care [...] on filedocumented in this encounter Care Teams Blue Line Trimmer Relationship Specialty Start Date End Date Aditya Castro Update Information PCP - General 03/06/19 documented as of this encounter
--- OUTSIDE RECORDS SUMMARY | 2024-09-07 23:23 | XMS_ITS | Encounter Summary ---
Author Organization [facility] Address [address] [facility] [place] [address] Care Team Providers Care Rechecker Name Role Phone Aditya Castro Primary Care Provider Unavailab le Reason for Visit * Reason Comments Kidney Transplant Evaluation Encounter Details Date Type Department Care Team (Late st Contact Info) Description 07/15/2020 Telephone [facility] TRANSPLANT [address] [place] [address] Anali Merino, RN Kidney Transplant [...] like for pt to reach out to [facility] bariatric program and pt notified to keep me up to date on his progress if he choices one of their programs. Pt can also follow up with our RD as well if needed for assistance. Pt notified team has given him a weight loss goal of 250 lbs to be re referred. Pt states understanding. ITY CONTROL INDUSTRIAL ENGINEER documented in this encounter Plan of Treatment Not on file documented as of this encounter Visit Diagnoses Not on filedocumented in this encounter Care Teams Rechecker Relationship Specialty Start Date End Date Aditya Castro Update Information PCP - General 03/06/19 documented as of this encounter
--- OUTSIDE RECORDS SUMMARY | 2024-09-07 23:23 | XMS_ITS | Encounter Summary ---
Author Organization [facility] Address [address] [place] [address] Care Team Providers Care Surveillance Supervisor Name Role Phone Aditya Castro Primary Care Provider Unavailab le Reason for Visit * Reason Comments Refill Request Encounter Details Date Type Department Care Team (Late st Contact Info) Description 04/13/2021 Refill [facility] [address] [place] [address] Girish Vasques MD [address] [facility] [address] [place] [address] Refill Request Social History Tobacco Use Types [...] dermatitis documented in this encounter Care Teams Surveillance Supervisor Relationship Specialty Start Date End Date Aditya Castro Update Information PCP - General 03/06/19 documented as of this encounter
--- OUTSIDE RECORDS SUMMARY | 2024-09-07 23:23 | XMS_ITS | Encounter Summary ---
Author Organization [facility] Address [address] [place] [address] Care Team Providers Care Machine Tool Dresser Name Role Phone Aditya Castro Primary Care Provider Unavailab le Encounter Details Date Type Department Care Team (Late st Contact Info) Description 05/14/2020 7:26 AM CDT Hospital Encounter [facility] DIAGNOSTIC RAD OP [address] [place] [phone] Glenny Martin MD [facility][note 2]1 [facility] [place] [address] Discharge Disposition: Home or Self Care Social [...] 12 hours as needed 01/25/2019 epoetin (PROCRIT) 32980 UNIT/ML injection Inject subcutaneously every 14 days ezetimibe (ZETIA) 10 MG tablet Take 10 mg by mouth once daily febuxostat (ULORIC) 40 MG tablet Take 40 mg by mouth 02/25/2019 ferrous sulfate EC (FERROUS SULFATE) 324 (65 Fe) MG tablet Take 324 mg by mouth once daily 02/21/2019 fluticasone propionate (FLONASE) 50 MCG/ACT nasal spray [place] 1 spray into each nostril once daily [...] test strip 04/17/2019 vitamin D, ergocalciferol, (DRISDOL) 00741 units capsule Take 50,000 Units by mouth [...] Dictated by Kristie Bee MD (vice president tax). I, Dr. CONRAD GONZALES MD have personally [...] Dictated by Kristie Bee MD (vice president tax). I, Dr. CONRAD GONZALES MD have personally reviewed and interpreted this examination/study. This report was electronically signed by CONRAD GONZALES MD on05/15/2020 7:51 AM . Glenny Martin MD DIAGNOSTIC IMAG ING ORDERABLES documented in this encounter Visit Diagnoses Diagnosis Pre-transplant evaluation for kidney transplant documented in this encounter Care Teams Machine Tool Dresser Relationship Specialty Start Date End Date Aditya Castro Update Information PCP - General 03/06/19 documented as of this encounter
--- OUTSIDE RECORDS SUMMARY | 2024-09-07 23:23 | XMS_ITS | Encounter Summary ---
Author Organization [facility] Address [address] [place] [address] Care Team Providers Care Wheel Polisher Name Role Phone Aditya Castro Primary Care Provider Unavailab le Encounter Details Date Type Department Care Team (Late st Contact Info) Description 10/16/2020 Orders Only [facility] - COVID Vaccine [address] [place] [phone] Carrington Leos MD [address] [place] [address] Need for vaccination Social History Tobacco Use [...] disease documented in this encounter Care Teams Wheel Polisher Relationship Specialty Start Date End Date Aditya Castro Update Information PCP - General 03/06/19 documented as of this encounter
--- OUTSIDE RECORDS SUMMARY | 2024-09-07 23:23 | XMS_ITS | Encounter Summary ---
Author Organization [facility] Address [address] [facility] [place] [address] Care Team Providers Care Guest Services Coordinator Name Role Phone Aditya Castro Primary Care [...] in this encounter Care Teams Guest Services Coordinator Relationship Specialty Start Date End Date Aditya Castro Update Information PCP - General 03/06/19 documented as of this encounter
--- OUTSIDE RECORDS SUMMARY | 2024-09-07 23:23 | XMS_ITS | Encounter Summary ---
Author Organization [facility] Address [address] [facility] [place] [address] Care Team Providers Care Newspaper Delivery Driver Name Role Phone Aditya Castro Primary Care Provider Unavailab le Encounter Details Date Type Department Care Team (Late st Contact Info) Description 05/14/2020 7:26 AM CDT Hospital Encounter [facility] DIAGNOSTIC RAD OP [address] [place] [phone] Glenny Martin MD [facility] [place] [address] Discharge Disposition: Home or Self Care Social [...] 12 hours as needed 01/25/2019 epoetin (PROCRIT) 82199 UNIT/ML injection Inject subcutaneously every 14 days ezetimibe (ZETIA) 10 MG tablet Take 10 mg by mouth once daily febuxostat (ULORIC) 40 MG tablet Take 40 mg by mouth 02/25/2019 ferrous sulfate EC (FERROUS SULFATE) 324 (65 Fe) MG tablet Take 324 mg by mouth once daily 02/21/2019 fluticasone propionate (FLONASE) 50 MCG/ACT nasal spray [place] 1 spray into each nostril once daily [...] test strip 04/17/2019 vitamin D, ergocalciferol, (DRISDOL) 98911 units capsule Take 50,000 Units by mouth [...] by Kristie Bee MD (vice president of consulting services). I, Dr. CONRAD GONZALES MD have personally [...] by Kristie Bee MD (vice president of consulting services). I, Dr. CONRAD GONZALES MD have personally reviewed and interpreted this examination/study. This report was electronically signed by CONRAD GONZALES MD on05/15/2020 7:49 AM . Glenny Martin MD DIAGNOSTIC IMAG ING ORDERABLES documented in this encounter Visit Diagnoses Diagnosis Pre-transplant evaluation for kidney transplant documented in this encounter Care Teams Newspaper Delivery Driver Relationship Specialty Start Date End Date Aditya Castro Update Information PCP - General 03/06/19 documented as of this encounter
--- OUTSIDE RECORDS SUMMARY | 2024-09-07 23:23 | XMS_ITS | Encounter Summary ---
Author Organization [facility] Address [address] [facility] [place] [address] Care Team Providers Care Retail Loan Originator Assistant Name Role Phone Aditya Castro Primary Care Provider Unavailab le Reason for Visit * Reason Comments Kidney Transplant Evaluation Encounter Details Date Type Department Care Team (Late st Contact Info) Description 07/03/2020 Telephone [facility] TRANSPLANT [address] [place] [address] Carey Chavez Kidney Transplant Evaluation [...] his appt into epic. 07/03/2020 1:40 PM RACT ADMINISTRATION COORDINATOR documented in this encounter Plan of Treatment Not on file documented as of this encounter Visit Diagnoses Not on filedocumented in this encounter Care Teams Retail Loan Originator Assistant Relationship Specialty Start Date End Date Aditya Castro Update Information PCP - General 03/06/19 documented as of this encounter
--- OUTSIDE RECORDS SUMMARY | 2024-09-07 23:23 | XMS_ITS | Encounter Summary ---
Author Organization [facility] Address [address] [place] [address] Care Team Providers Care Front End Ui Developer Name Role Phone Aditya Castro Primary Care Provider Unavailab le Reason for Visit * Reason Comments Kidney Transplant Evaluation Encounter Details Date Type Department Care Team (Late st Contact Info) Description 05/12/2020 Telephone [facility] TRANSPLANT [address] [place] [phone] Magali Ramos Kidney Transplant Evaluation Social History [...] filedocumented in this encounter Care Teams Front End Ui Developer Relationship Specialty Start Date End Date Aditya Castro Update Information PCP - General 03/06/19 documented as of this encounter
--- OUTSIDE RECORDS SUMMARY | 2024-09-07 23:23 | XMS_ITS | Encounter Summary ---
Author Organization [facility] Address [address] [facility] [place] [address] Care Team Providers Care Assembler Erector Name Role Phone Aditya Castro Primary Care Provider Unavailab le Reason for Visit * Reason Comments Kidney Transplant Evaluation Encounter Details Date Type Department Care Team (Latest Contact Info) Description 07/13/2020 2:00 PM COUPON CLERK Office Visit [facility] [address] [place] [id number] Pre-transplant evaluation for kidney transplant (Primary Dx); Hypertensive chronic kidney disease with stage 5 chronic kidney disease or end stage renal disease (HCC); Type 2 diabetes mellitus with chronic kidney disease on chronic dialysis, unspecified whether nursing home insulin use (HCC); End stage renal disease (HCC); Type 2 diabetes mellitus with diabetic chronic kidney disease, unspecified CKD stage, unspecified whether manager long term care insulin use (HCC); Hyperlipidemia, unspecified hyperlipidemia [...] Comments Blood Pressure 140/60 07/13/2020 1:30 PM COUPON CLERK Pulse 65 07/13/2020 1:30 PM COUPON CLERK Temperature 36.1 ??C (97 ??F) 07/13/2020 1:30 PM COUPON CLERK Respiratory Rate 20 07/13/2020 1:30 PM COUPON CLERK Oxygen Saturation 95% 07/13/2020 1:30 PM COUPON CLERK Inhaled Oxygen Concentration - - Weight 134.3 kg (296 lb) 07/13/2020 1:30 PM COUPON CLERK Height 176.5 cm (5' 9.5 ) 07/13/2020 1:30 PM COUPON CLERK Body Mass Index 43.08 07/13/2020 1:30 PM COUPON CLERK documented in this encounter Progress Notes * [...] risk, High KDPI, and Hep C kidneys. ON CLERK * Maritza Hills MD - 07/13/2020 1:39 PM CST Images from the original note were not included. 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 His extensive PMH is notable for obesity, CHF, CAH, [place] s/p 4 stents to RCA,gout, HTN, HLD, [...] 12 hours as needed ??? epoetin (PROCRIT) 54073 UNIT/ML injection Inject subcutaneously every 14 days ??? ezetimibe (ZETIA) 10 MG tablet Take 10 mg by mouth once daily ??? febuxostat (ULORIC) 40 MG tablet Take 40 mg by mouth ??? ferrous sulfate EC (FERROUS SULFATE) 324 (65 Fe) MG tablet Take 324 mg by mouth once daily ??? fluticasone propionate (FLONASE) 50 MCG/ACT nasal spray [place] 1 spray into each nostril once daily [...] test strip ??? vitamin D, ergocalciferol, (DRISDOL) 89147 units capsule Take 50,000 Units by mouth [...] artery disease) ??? Community acquired pneumonia 2017 [facility] hospitalized with double pneumonia ??? Congestive heart failure ??? Coronary artery disease ??? Diabetes mellitus type 1 teens dx when he was 13. Insulin since he was dx. Insulin pump currently with dexacom. Vashti Vo neuropsychiatric aide. ??? DM (diabetes mellitus) TYPE 1 ??? DVT (deep venous thrombosis) 2017 [facility]. ??? ESRD on peritoneal dialysis ??? Gout ??? History of blood transfusion 2017 during admission for [place] ??? HLD (hyperlipidemia) ??? HTN (hypertension) ??? Hypercholesteremia 5 years on med ??? Hypertension 30's on medications. ??? Kidney disease ??? Myocardial infarction 2017 [facility]. Stent x1 placed. ??? Neuropathy feet ??? [...] results for input(s): MAGNESIUM in the last 42071 hours. Recent Labs Component Name 05/14/20 1018 PHOS 5.1* No results for input(s): TACROLIMUS, TACROCARDIO, TACROGASTRO, TACRONEPHRO in the last 44942 hours. Review of Imaging Reports [facility]: 08/26/2019 [...] procedures ?? Patient to follow up with [facility] weight loss clinic ?? Counseled regarding diet and exercise ?? Goal BMI: 35 (weight 241lbs) ?? Patient to follow up in txp clinic following weight loss ?? Patient will call with any questions or concerns in the interim Outstanding evaluation: -Patient education Maritza Hills MD 07/13/2020 3:41 PM ON CLERK Associated attestation - Glenny Martin MD - 07/14/2020 3:55 PM COUPON CLERK Supervising Physicians Attestation: I have personally seen [...] even after dietary advice - CAD/ CHF/ [place] S/P x 4 stents, on PLAVIX - HTN - HLD - BEN - Last HgbA1c was 7.7. Questionable resting angina although recent cath revealed patent stents. A/P: At present not a candidate for renal transplant given his increasing weight and current BMI of43. - given information to contact the [facility] weight loss and surgery center. We will be contactingthe team to see how best he can be counseled and be followed up by them to determine if in the prison he may be a candidate (if he [...] how the patient can be seen at [facility]. Glenny Martin MD residential property manager documented in this encounter Plan of Treatment [...] kidney disease on chronic dialysis, unspecified whether nursing home insulin use (HCC) End stage renal disease (HCC) End stage renal disease Type 2 diabetes mellitus with diabetic chronic kidney disease, unspecified CKD stage, unspecified whether manager long term care insulin use (HCC) Hyperlipidemia, unspecified hyperlipidemia type Obstructive sleep apnea (adult) (pediatric) Obesity, unspecified classification, unspecified obesity type, unspecified whether serious comorbidity present documented in this encounter Care Teams Assembler Erector Relationship Specialty Start Date End Date Aditya Castro Update Information PCP - General 03/06/19 documented as of this encounter
--- OUTSIDE RECORDS SUMMARY | 2024-09-07 23:23 | XMS_ITS | Encounter Summary ---
Author Organization [facility] Address [address] [facility] [place] [address] Care Team Providers Care Bindery Worker Name Role Phone Aditya Castro Primary Care Provider Unavailab le Reason for Visit * Reason Comments Refill Request Encounter Details Date Type Department Care Team (Late st Contact Info) Description 07/19/2020 Refill [facility] [address] [place] [address] Girish Vasques MD [address] [facility] [address] [place] [address] Refill Request Social History Tobacco Use Types [...] dermatitis documented in this encounter Care Teams Bindery Worker Relationship Specialty Start Date End Date Aditya Castro Update Information PCP - General 03/06/19 documented as of this encounter
--- OUTSIDE RECORDS SUMMARY | 2024-09-07 23:23 | XMS_ITS | Encounter Summary ---
Author Organization [facility] Address [address] [facility] [place] [address] Care Team Providers Care Automatic Bandsaw Tender Name Role Phone Aditya Castro Primary Care Provider Unavailab le Reason for Visit * Reason Comments Kidney Transplant Evaluation Encounter Details Date Type Department Care Team (Late st Contact Info) Description 04/06/2020 Telephone [facility] TRANSPLANT [address] [place] [phone] Gracie Chambers, RN Kidney Transplant Evaluation [...] on filedocumented in this encounter Care Teams Automatic Bandsaw Tender Relationship Specialty Start Date End Date Aditya Castro Update Information PCP - General 03/06/19 documented as of this encounter
--- OUTSIDE RECORDS SUMMARY | 2024-09-07 23:23 | XMS_ITS | Referral Summary ---
Author Organization [facility] Address [address] [place] [address] Care Team Providers Care Disbursing Agent Name Role Phone Aditya Castro Primary Care Provider Unavailab le Source Comments [facility],non-owned Affiliates and Associated Physician Practices is amultiple site organization consisting of ambulatory clinics and hospital sitesin [place], [place], [place] and [place]. This disclosure is being madepursuant to the Care Everywhere program and may not contain all information available regarding this patient. Last updated 18.[facility] Allergies Active Allergy Reactions Criticality Noted Date [...] needed 01/25/2019 Active vitamin D, ergocalciferol, (DRISDOL) 30985 units capsule Take 50,000 Units by mouth [...] fluticasone propionate (FLONASE) 50 MCG/ACT nasal spray [place] 1 spray into each nostril once daily 04/24/2019 Active epoetin (PROCRIT) 09935 UNIT/ML injection Inject subcutaneously every 14 days [...] were not included. Juvenal Daigle 1970 Referring Environmental Planner: Leandro Reyes Dialysis Info: Type: PD Time: 160 days (11/05/2019) Blood Type: A Body mass index is 37.8 kg/m??. ALERTS Plow Mechanic: Vashti Lizama NP Past Medical History: Diagnosis Date ? ? Anemia ? ? Arthritis ? ? Arthropathy osteo. back and knees see Dr. Norton ? ? CAD (coronary artery disease) ? ? Community acquired pneumonia 2017 [facility] hospitalized with double pneumonia ? ? Congestive heart failure ? ? Coronary artery disease ? ? Diabetes mellitus type 1 teens dx when he was 13. Insulin since he was dx. Insulin pump currently with dexacom. Vashti Lizama NP is spray machine loader. ? ? DM (diabetes mellitus) TYPE 1 ? ? DVT (deep venous thrombosis) 2017 [facility]. ? ? ESRD on peritoneal dialysis ? ? Gout ? ? History of blood transfusion 2017 during admission for [place] ? ? HLD (hyperlipidemia) ? ? HTN (hypertension) ? ? Hypercholesteremia 5 years on med ? ? Hypertension 30's on medications. ? ? Kidney disease ? ? Myocardial infarction 2017 [facility]. Stent x1 placed. ? ? Neuropathy [...] file Gets together: Not on file Attends zoroastrianism service: Not on file Active member of [...] It is the impression of this social science instructor that Juvenal Daigle has several positive factors [...] of safety concerns regarding immunosuppressants. ?? Plan: ship worker to provide supportive services as needed. Patient appears to be a reasonable candidate for transplant from a psychosocial perspective. ?? -Post transplant arrangement forms are needed prior to being listed. Psychiatric Consult Recommended: No ?? Transplant Hydroelectric Production Technician: Radha Roper LCSW ?? RD:05/14/2020 BMI= 40.0, [...] Comments Blood Pressure 140/60 07/13/2020 1:30 PM MILK ROUTE DELIVERER Pulse 65 07/13/2020 1:30 PM MILK ROUTE DELIVERER Temperature 36.1 ??C (97 ??F) 07/13/2020 1:30 PM MILK ROUTE DELIVERER Respiratory Rate 20 07/13/2020 1:30 PM MILK ROUTE DELIVERER Oxygen Saturation 95% 07/13/2020 1:30 PM MILK ROUTE DELIVERER Inhaled Oxygen Concentration - - Weight 134.3 kg (296 lb) 07/13/2020 1:30 PM MILK ROUTE DELIVERER Height 176.5 cm (5' 9.5 ) 07/13/2020 1:30 PM MILK ROUTE DELIVERER Body Mass Index 43.08 07/13/2020 1:30 PM MILK ROUTE DELIVERER Plan of Treatment Not on file Procedures [...] ORDERABLES [facility] [address] [place] [address], [facility] [phone] * (ABNORMAL) COMPREHENSIVE METABOLIC PANEL (05/14/2020 10:18 AM CDT) Pathologist [facility] BUN 65(H) 7 - 26 mg/dL 05/14/2020 11:41 AM [facility] Creatinine 5.6(H) 0.6 - 1.2 mg/dL 05/14/2020 11:41 AM [facility] Sodium 142 136 - 145 mmol/L 05/14/2020 11:41 AM [facility] Potassium 3.7 3.5 - 4.5 mmol/L 05/14/2020 11:41 AM [facility] Chloride 101 98 - 107 mmol/L 05/14/2020 11:[address] [facility] CO2 28 22 - 29 mmol/L 05/14/2020 11:41 AM [facility] Glucose 162(H) 70 - 115 mg/dL 05/14/2020 11:41 AM [facility] Calcium 9.0 8.4 - 10.2 mg/dL 05/14/2020 11:41 AM [facility] Protein Total 6.9 6.0 - 8.3 g/dL 05/14/2020 11:[address] [facility] Albumin 3.7 3.4 - 5.0 g/dL [...] 1.2 1.1 - 2.3 05/14/2020 11:41 AM [facility] eGFR 11(L) >60 mL/min/1.7 3 m2 05/14/2020 11:41 AM [facility] Blood BLOOD SPECIMEN / Unknown Lab Venipuncture / Unknown 05/14/2020 10:18 AM CDT 05/14/2020 10:55 AM [facility] Glenny Martin MD LAB - CHEMISTRY ORDERABLES [facility] [address] [place] [address], [facility] [phone] * HEPATITIS C ANTIBODY (05/14/2020 10:18 AM CDT) Hepatitis C Antibody Non-react bianca Non-reac tive 05/14/2020 11:[address] [facility] Comment:Hepatitis C Antibody screen indicates no [...] ORDERABLES [facility] [address] [place] [address], [facility] [phone] from Last 3 Months or Most Recently Relevant to Health Maintenance Insurance Payer Benefit Plan / Group Subscriber ID Effective Dates Phone Address Type AETNA MEDICARE ADV AETNA MEDICARE ADV HMO/PPO/PFFS [id number] Effective for all dates [address] [place] [address] Medicare-Ma naged Care MEDICAID [facility] MEDICAID [facility] Effective for all dates [address] [place] [address] Medicaid AETNA MEDICARE ADV AETNA MEDICARE ADV HMO/PPO/PFFS [id number] Effective for all dates [address] [place] [address] Medicare-Ma naged Care MEDICAID [facility] MEDICAID [facility] Effective for all dates [address] [place] [address] Medicaid AETNA MEDICARE ADV AETNA MEDICARE ADV HMO/PPO/PFFS [id number] Effective for all dates [address] [place] [address] Medicare-Ma naged Care MEDICAID [facility] MEDICAID [facility] Effective for all dates [address] [place] [address] Medicaid MEDICARE [place] MEDICARE PART B [id number] 08/21/2019-Pres ent [address] [address] [place] [address] Medicare MEDICAID - [facility] MEDICAID - [place] PUBLIC AID [id number] 08/21/2019-Pres ent [address] [address] [place] [address] Medicaid MEDICARE MEDICARE PART A AND B [id number] 08/21/2019-Pres ent [address] [place] [address] Medicare MEDICAID - [place] MED[place]ID - [place] MED[place]ID [id number] Effective for all dates [address] [address] [place] [address] Medicaid [place] Advance Directives * Full Code (Latest Code Status on File) Date Activated Date Inactivated Comments 11/22/2018 9:24 AM 11/23/2018 7:55 PM Care Teams Disbursing Agent Relationship Specialty Start Date End Date Aditya Castro Update Information PCP - General 03/06/19
--- OUTSIDE RECORDS SUMMARY | 2024-09-07 23:23 | XMS_ITS | Encounter Summary ---
Author Organization [facility] Address [address] [facility] [place] [address] Care Team Providers Care Whiting Machine Operator Name Role Phone Aditya Castro Primary Care Provider Unavailab le Reason for Referral * Laboratory Services (Routine) - Closed Specialty Diagnoses / Procedures Referred By Contac t Referred To Contact Diagnoses Pre-transplant evaluation for kidney transplant Procedures FACTOR V LEIDEN MUTATION PANEL Sourav Moscoso MD [address] [employer] [address] [place], [place] [id number] Referral ID Status Reason Start Date Expiration Date Visits Re quested Visits Authorized [id number] Closed 03/24/2020 03/24/2021 1 1 * Laboratory Services (Routine) - Closed Specialty Diagnoses / Procedures Referred By Contac t Referred To Contact Diagnoses Pre-transplant evaluation for kidney transplant Procedures PROTHROMBIN [id number] PANEL Sourav Moscoso MD [address] [employer] [address] [place], [place] [id number] Referral ID Status Reason Start Date Expiration Date Visits Re quested Visits Authorized [id number] Closed 03/24/2020 03/24/2021 1 1 Encounter Details Date Type Department Care Team (Late st Contact Info) Description 03/24/2020 Orders Only [facility] [address] [place] [address] Anali Merino, RN Pre-transplant evaluation for kidney [...] 150 % 05/16/2020 2:07 AM CDT [facility] ([facility]) Comment: This test was developed and its performance characteristics determined by [facility]. It has not been cleared or approved by the Food and Drug Administration. Total Protein S Antigen is an acute phase reactant protein and can be elevated in inflammatory states. Protein S Free 179(H) 57 - 157 % 05/16/2020 2:07 AM CDT [facility] Comment: This test was developed and its performance characteristics determined by [facility]. It has not been cleared or approved by the Food and Drug Administration. Blood BLOOD SPECIMEN / Unknown Lab Venipuncture / Unknown 05/14/2020 10:18 AM CDT 05/14/2020 10:48 AM CDT Narrative [facility] ([facility] - 05/16/2020 2:07 AM CDT Performed at: ??[address] ??[id number] Gas Distribution Supervisor: Con Grimaldo MD, Phone: ??[phone] Sourav Moscoso MD LAB - COAGULATION OR DERABLES [facility] ([facility] [address] [place] [address], [facility] * ANTITHROMBIN III ACTIVITY (05/14/2020 10:18 AM CDT) Pathologist [facility] [place] AT III Activity 125 76 - 128 % 0 9:58 PM CDT [employer] [facility] ([facility]) Comment: REFERENCE INTERVAL: Antithrombin, Enzymatic (Activity) Access complete set of age- and/or gender-specific reference intervals for this test in the [facility] Laboratory Test Directory ([facility]). Performed by [facility], [address] [place], [place] [id number] [email or web address], Valerie Mast MD, Lab. Director Blood BLOOD SPECIMEN / Unknown Lab Venipuncture / Unknown 05/14/2020 10:18 AM CDT 05/14/2020 10:51 AM CDT Sourav Moscoso MD LAB - COAGULATION OR DERABLES [facility]) [address] [place] [address], [facility] * CARDIOLIPIN ANTIBODY IGM (05/14/2020 10:18 AM CDT) Pathologist [facility] Cardiolipin Antibody IgM 0 0 - 12 MPL 05/17/2020 12:33 AM CDT [facility] ([facility]) Comment: INTERPRETIVE INFORMATION: Anti-Cardiolipin IgM 0-12 [...] other criteria phospholipid antibody tests. Performed By: [facility] [address] [place] [address] Warehouse Helper: Valerie Mast MD Blood BLOOD SPECIMEN / Unknown Lab Venipuncture / Unknown 05/14/2020 10:18 AM CDT 05/14/2020 10:57 AM CDT Sourav Moscoso MD LAB - SEROLOGY ORDER ROVERTO Performing Organization Address City/[facility]/ZIP Co de Phone Number [facility]) [address] * CARDIOLIPIN ANTIBODY IGG (05/14/2020 10:18 AM CDT) Cardiolipin Antibody IgG 2 0 - 14 GPL 05/17/2020 12:32 AM CDT [facility] ([facility]) Comment: INTERPRETIVE INFORMATION: Anti-Cardiolipin IgG Ab [...] other criteria phospholipid antibody tests. Performed By: [facility] [address] [place] [address] Warehouse Helper: Valerie Mast MD Blood BLOOD SPECIMEN / Unknown Lab Venipuncture / Unknown 05/14/2020 10:18 AM CDT 05/14/2020 10:58 AM CDT Sourav Moscoso MD LAB - SEROLOGY ORDER ROVERTO Performing Organization Address City/[facility]/ZIP Co de Phone Number [facility] ([facility]) [address] * FACTOR V LEIDEN MUTATION PANEL (05/14/2020 10:18 AM CDT) Factor V Leiden Source Whole Blood 05/21/2020 4:02 PM [facility] ([facility] Factor V Leiden PCR/FRET Negative 05/21/2020 4:02 PM [facility] ([facility]) Comment: Indication for testing: Assess genetic risk for thrombosis. NEGATIVE: The factor V Leiden variant, c.1601G>A; p.[id number], was not detected. This does not exclude [...] function in the F5 gene variant c.1601G>A (p.[id number]). Legacy nomenclature: [id number] (1691G>A) CLINICAL SENSITIVITY: 20-50 percent of individuals with an isolated VTE have the FVL variant. METHODOLOGY: Polymerase chain reaction and fluorescence monitoring. ANALYTICAL SENSITIVITY AND SPECIFICITY: 99 percent. LIMITATIONS: Diagnostic errors can occur due to rare sequence variations. F5 gene mutations, other than p.[id number], will not be detected. This test was developed and its performance characteristics determined by [facility]. It has not been cleared or approved by the [place] Food and Drug Administration. This test was performed in a CLIA certified laboratory and is intended for clinical purposes. Counseling and informed consent are recommended for genetic testing. Consent forms are available online. Performed by [facility], [address] [place] [id number] [email or web address], Valerie Mast MD, Lab. Director Blood BLOOD SPECIMEN / Unknown Lab Venipuncture / Unknown 05/14/2020 10:18 AM CDT 05/14/2020 10:49 AM CDT Sourav Moscoso MD LAB - COAGULATION OR DERABLES [facility] ([facility]) [address] [place] [address], [facility] * PROTHROMBIN [id number] PANEL (05/14/2020 10:18 AM CDT) [facility] Prothrombin [id number] Negative 05/21/2020 8:19 PM CDT [facility] ([facility]) Comment: Indication for testing: Assess genetic risk for thrombosis. NEGATIVE: The Factor II, prothrombin [id number] mutation, was not detected. ??Other causes of [...] Cui, Ph.D. BACKGROUND INFORMATION: Prothrombin (F2) c.*97G>A ?(V11666I) Pathogenic Variant CHARACTERISTICS: The Factor II, c.*97G>A (X93949X) pathogenic variant is a common genetic risk [...] CAUSE: Homozygosity or heterozygosity for F2 c.*97G>A (H72827L). PATHOGENIC VARIANT TESTED: F2 c.*97G>A (L22207F). CLINICAL SENSITIVITY FOR VENOUS THROMBOSIS: Approximately 10 percent. METHODOLOGY: Polymerase chain reaction and fluorescence monitoring. ANALYTICAL SENSITIVITY AND SPECIFICITY: 99 percent. LIMITATIONS: Diagnostic errors can occur due to rare sequence variations. F2 gene variants, other than c.*97G>A (P42525U), will not be detected. This test was developed and its performance characteristics determined by [facility]. It has not been cleared or approved by the US Food and Drug Administration. This test was performed in a CLIA certified laboratory and is intended for clinical purposes. Counseling and informed consent are recommended for genetic testing. Consent forms are available online. Performed by [facility], [address] [place] [address] [email or web address], Valerie Mast MD, Lab. Director Source PT [id number] PCR Whole Blood 05/21/2020 8:19 PM CDT [facility]) Blood BLOOD SPECIMEN / Unknown Lab Venipuncture / Unknown 05/14/2020 10:18 AM CDT 05/14/2020 10:48 AM CDT Sourav Moscoso MD LAB - COAGULATION OR DERABLES [facility]) [address] [place] [address] * (ABNORMAL) HOMOCYSTEINE BLOOD QUANTITATIVE (05/14/2020 10:18 AM CDT) [facility] Homocysteine 21.1(H) 4.4 - 16.2 umol/L 05/14/2020 11:51 AM CDT [facility] Blood BLOOD SPECIMEN / Unknown Lab Venipuncture / Unknown 05/14/2020 10:18 AM CDT 05/14/2020 10:48 AM CDT Sourav Moscoso MD LAB - CHEMISTRY SUSANNAH LEONE Performing Organization Address City/State/[facility] Co de Phone Number [address] [address], [facility] [phone] documented in this encounter Visit Diagnoses Diagnosis Pre-transplant evaluation for kidney transplant- Primary documented in this encounter Care Teams Whiting Machine Operator Relationship Specialty Start Date End Date Aditya Castro Update Information PCP - General 03/06/19 documented as of this encounter
--- OUTSIDE RECORDS SUMMARY | 2024-09-07 23:23 | XMS_ITS | Encounter Summary ---
Author Organization [facility] Address [address] [address] Care Team Providers Care Mathematical Sciences Professor Name Role Phone Aditya Castro Primary Care Provider Unavailab le Reason for Visit * Radiology Services (Routine) - Closed Specialty Diagnoses / Procedures Referred By Aguilar lora Referred To Contact Diagnoses Pre-transplant evaluation for kidney transplant Procedures VAS BILATERAL VENOUS DUPLEX LE Glenny Martin MD [address] [place] [address] [facility] Kidney Transplant [address] [place] [address] Referral ID Status Reason Start Date Expiration Date Visits Re quested Visits Authorized [id number] Closed 05/14/2020 08/13/2020 1 1 Encounter Details Date Type Department Care Team (Late st Contact Info) Description 05/14/2020 10:40 AM CDT Hospital Encounter [facility] [address] [place] [phone] Glenny Martin MD [address] [facility] [place] [address] Discharge Disposition: Home or Self Care Social [...] 12 hours as needed 01/25/2019 epoetin (PROCRIT) 12606 UNIT/ML injection Inject subcutaneously every 14 days ezetimibe (ZETIA) 10 MG tablet Take 10 mg by mouth once daily febuxostat (ULORIC) 40 MG tablet Take 40 mg by mouth 02/25/2019 ferrous sulfate EC (FERROUS SULFATE) 324 (65 Fe) MG tablet Take 324 mg by mouth once daily 02/21/2019 fluticasone propionate (FLONASE) 50 MCG/ACT nasal spray [place] 1 spray into each nostril once daily [...] test strip 04/17/2019 vitamin D, ergocalciferol, (DRISDOL) 43923 units capsule Take 50,000 Units by mouth [...] transplant documented in this encounter Care Teams Mathematical Sciences Professor Relationship Specialty Start Date End Date Aditya Castro Update Information PCP - General 03/06/19 documented as of this encounter
--- OUTSIDE RECORDS SUMMARY | 2024-09-07 23:23 | XMS_ITS | Clinical Summary ---
Author Organization [facility] Address [address] [facility] [place] [address] Care Team Providers Care Ccna Name Role Phone Aditya Castro Primary Care Provider Unavailab le Source Comments [facility],non-owned Affiliates and Associated Physician Practices is amultiple site organization consisting of ambulatory clinics and hospital sitesin [place], [place], [place] and [place]. This disclosure is being madepursuant to the Care Everywhere program and may not contain all information available regarding this patient. Last updated 18.[facility] Allergies Active Allergy Reactions Criticality Noted Date [...] needed 01/25/2019 Active vitamin D, ergocalciferol, (DRISDOL) 86725 units capsule Take 50,000 Units by mouth [...] fluticasone propionate (FLONASE) 50 MCG/ACT nasal spray [place] 1 spray into each nostril once daily 04/24/2019 Active epoetin (PROCRIT) 97930 UNIT/ML injection Inject subcutaneously every 14 days [...] were not included. Juvenal Daigle 1970 Referring Chairman & Chief Executive Officer: Leandro Reyes Dialysis Info: Type: PD Time: 160 days (11/05/2019) Blood Type: A Body mass index is 37.8 kg/m??. ALERTS Warehouse Loader: Vashti Lizama NP Past Medical History: Diagnosis Date ? ? Anemia ? ? Arthritis ? ? Arthropathy osteo. back and knees see Dr. Norton ? ? CAD (coronary artery disease) ? ? Community acquired pneumonia 2017 [facility] hospitalized with double pneumonia ? ? Congestive heart failure ? ? Coronary artery disease ? ? Diabetes mellitus type 1 teens dx when he was 13. Insulin since he was dx. Insulin pump currently with dexacom. Vashti Lizama NP is concrete pipe maker. ? ? DM (diabetes mellitus) TYPE 1 ? ? DVT (deep venous thrombosis) 2017 [facility]. ? ? ESRD on peritoneal dialysis ? ? Gout ? ? History of blood transfusion 2017 during admission for [place] ? ? HLD (hyperlipidemia) ? ? HTN (hypertension) ? ? Hypercholesteremia 5 years on med ? ? Hypertension 30's on medications. ? ? Kidney disease ? ? Myocardial infarction 2017 [facility]. Stent x1 placed. ? ? [...] file Gets together: Not on file Attends pentecostal service: Not on file Active member of [...] 07/02/2020: Committee Discussion Details: Pt brought to [facility] to discuss his cardiac workup. Team reviewed [...] It is the impression of this social work case manager that Juvenal Daigle has several positive factors [...] of safety concerns regarding immunosuppressants. ?? Plan: structural steel worker to provide supportive services as needed. Patient appears to be a reasonable candidate for transplant from a psychosocial perspective. ?? -Post transplant arrangement forms are needed prior to being listed. Psychiatric Consult Recommended: No ?? Transplant Supervisor [employer]: Radha Roper LCSW ?? RD:05/14/2020 BMI= 40.0, [...] Comments Blood Pressure 140/60 07/13/2020 1:30 PM DRYWALL HANGER HELPER Pulse 65 07/13/2020 1:30 PM DRYWALL HANGER HELPER Temperature 36.1 ??C (97 ??F) 07/13/2020 1:30 PM DRYWALL HANGER HELPER Respiratory Rate 20 07/13/2020 1:30 PM DRYWALL HANGER HELPER Oxygen Saturation 95% 07/13/2020 1:30 PM DRYWALL HANGER HELPER Inhaled Oxygen Concentration - - Weight 134.3 kg (296 lb) 07/13/2020 1:30 PM DRYWALL HANGER HELPER Height 176.5 cm (5' 9.5 ) 07/13/2020 1:30 PM DRYWALL HANGER HELPER Body Mass Index 43.08 07/13/2020 1:30 PM DRYWALL HANGER HELPER Plan of Treatment Health Maintenance Due Date [...] Non-reacti ve Non-react bianca 05/14/2020 11:49 AM [facility] Comment:Neither HIV-1 p24 An tigen nor HIV-1/HIV-2 Antibodies are detected. Blood BLOOD SPECIMEN / Unknown Lab Venipuncture / Unknown 05/14/2020 10:18 AM CDT 05/14/2020 10:57 AM CDT Glenny Martin MD LAB - HEMATOLOG Y ORDERABLES [facility] [address] [place] [address], [facility] [phone] * (ABNORMAL) COMPREHENSIVE METABOLIC PANEL (05/14/2020 10:18 AM CDT) Pathologist [facility] BUN 65(H) 7 - 26 mg/dL 05/14/2020 [...] Glenny Martin MD LAB - CHEMISTRY ORDERABLES [address] [address] [phone] * HEPATITIS C ANTIBODY (05/14/2020 10:18 AM CDT) Hepatitis C Antibody Non-react bianca Non-reac tive 05/14/2020 11:49 AM [facility] Comment:Hepatitis C Antibody screen indicates no [...] Glenny Martin MD LAB - CHEMISTRY ORDERABLES [address] [place] [address], [facility] [phone] from Last 3 Months or Most Recently Relevant to Health Maintenance Insurance Payer Benefit Plan / Group Subscriber ID Effective Dates Phone Address Type AETNA MEDICARE ADV AETNA MEDICARE ADV HMO/PPO/PFFS [id number] Effective for all dates [address] [place] [address] [place] naged Care MEDICAID [facility] MEDICAID [facility] Effective for all dates [address] [place] [address] Medicaid AETNA MEDICARE ADV AETNA MEDICARE ADV HMO/PPO/PFFS [id number] Effective for all dates [address] [place] [address] [place] naged Care MEDICAID [facility] MEDICAID [facility] Effective for all dates [address] [place] [address] Medicaid AETNA MEDICARE ADV AETNA MEDICARE ADV HMO/PPO/PFFS [id number] Effective for all dates [address] [place] [address] [facility] MEDICAID [facility] MEDICAID [employer] [facility] Effective for all dates [address] [place] [address] Medicaid MEDICARE S MEDICARE PART B [id number] 08/21/2019-Pres ent [address] [address] [place] [address] Medicare MEDICAID - OUT OF [facility] MEDICAID - [place] PUBLIC AID [id number] 08/21/2019-Pres ent [address] [address] [place] [address] Medicaid MEDICARE MEDICARE PART A AND B [id number] 08/21/2019-Pres ent [address] [place] [address] Medicare MEDICAID - [place] [id number] Effective for all dates [address] [address] [place] [address] Medicaid [place] Advance Directives * Full Code (Latest Code Status on File) Date Activated Date Inactivated Comments 11/22/2018 9:24 AM 11/23/2018 7:55 PM Care Teams Ccna Relationship Specialty Start Date End Date Aditya Castro Update Information PCP - General 03/06/19
--- OUTSIDE RECORDS SUMMARY | 2024-09-07 23:23 | XMS_ITS | Encounter Summary ---
Author Organization [facility] Address [address] [facility] [place] [address] Care Team Providers Care Founding Partner Name Role Phone Aditya Castro Primary Care Provider Unavailab le Reason for Visit * Radiology Services (Routine) - Closed Specialty Diagnoses / Procedures Referred By Aguilar lora Referred To Contact Diagnoses Pre-transplant evaluation for kidney transplant Procedures VAS ARTERIAL ANKLE ARM INDEX Glenny Martin MD [address] [place] [address] [facility] Kidney Transplant [address] [place] [address] Referral ID Status Reason Start Date Expiration Date Visits Re quested Visits Authorized [id number] Closed 05/14/2020 08/13/2020 1 1 Encounter Details Date Type Department Care Team (Late st Contact Info) Description 05/14/2020 10:40 AM CDT Hospital Encounter [facility] VASCULAR US [address] [place] [phone] Glenny Martin MD [address] [facility] [place] [address] Discharge Disposition: Home or Self Care Social [...] 12 hours as needed 01/25/2019 epoetin (PROCRIT) 86240 UNIT/ML injection Inject subcutaneously every 14 days ezetimibe (ZETIA) 10 MG tablet Take 10 mg by mouth once daily febuxostat (ULORIC) 40 MG tablet Take 40 mg by mouth 02/25/2019 ferrous sulfate EC (FERROUS SULFATE) 324 (65 Fe) MG tablet Take 324 mg by mouth once daily 02/21/2019 fluticasone propionate (FLONASE) 50 MCG/ACT nasal spray [place] 1 spray into each nostril once daily [...] test strip 04/17/2019 vitamin D, ergocalciferol, (DRISDOL) 97617 units capsule Take 50,000 Units by mouth [...] transplant documented in this encounter Care Teams Founding Partner Relationship Specialty Start Date End Date Aditya Castro Update Information PCP - General 03/06/19 documented as of this encounter
--- OUTSIDE RECORDS SUMMARY | 2024-09-07 23:24 | XMS_ITS ---
Author Organization [facility] Address [address] [facility] [place] [address] Care Team Providers Care Quiller Machine Fixer Name Role Phone Aditya Csatro Primary Care Provider Unavailab le Transplant Episode Pancreas Candidate [facility] ([place], [place]) - [facility] Referred on 12/31/2019 Marked as Ineligible on 02/04/2020 Reason: Weight Issues Pancreas CoordinatorGracie Chambers RN Phone: N/A Fax: N/A Email: N/A Care Team Name Role Phone Fax Email Gracie Chambers RN Pancreas Coordinator N/A N/A N/A Leandro Reyes MD Referring Physician N/A N/A N/A Events Pre-Transplant Referred: 12/31/2019 Dialysis History Dialysis History Start End Type Comments Center 10/16/2019 Peritoneal [facility] Dialysis Center Information Center Phone Fax Address [facility] [phone] [address]
--- OUTSIDE RECORDS SUMMARY | 2024-09-07 23:24 | XMS_ITS | Encounter Summary ---
Author Organization [facility] Address [address] [place] [id number] Phone Care Team Providers Care Forensic Science Examiner Name Role Phone Unavailable Primary Care Provider Unavailabl e Reason for Visit * Reason Comments CKD Encounter Details Date Type Department Care Team ([facility] st Contact Info) Description 02/12/2019 1:00 PM CDT Office Visit [facility] [address] [place] [address] Leandro Reyes MD [address] [id number] Social History Tobacco Use Types Packs/Day Years [...]
--- OUTSIDE RECORDS SUMMARY | 2024-09-07 23:24 | XMS_ITS | Encounter Summary ---
Author Organization [facility] Address [address] [facility] [place] [address] Care Team Providers Care Chief Maintenance Supervisor Name Role Phone Aditya Castro Primary Care Provider Unavailab le Reason for Visit * Reason Comments Kidney Transplant Evaluation Encounter Details Date Type Department Care Team (Late st Contact Info) Description 02/17/2020 Telephone [facility] TRANSPLANT [address] [place] [address] Gracie Chambers, RN Kidney Transplant [...] an echo some time in 2019 at [facility]. Will request before proceeding with referral. 03/02/20 update: Have called several times for updated echo but there does not appear to be one. Will open referral. documented in this encounter Plan of Treatment Not on file documented as of this encounter Visit Diagnoses Not on filedocumented in this encounter Care Teams Chief Maintenance Supervisor Relationship Specialty Start Date End Date Aditya Castro Update Information PCP - General 03/06/19 documented as of this encounter
--- OUTSIDE RECORDS SUMMARY | 2024-09-07 23:24 | XMS_ITS | Encounter Summary ---
Author Organization [facility] Address [address] [facility] [place] [address] Care Team Providers Care Leadership Development Instructor Name Role Phone Aditya Castro Primary Care Provider Unavailab le Encounter Details Date Type Department Care Team (Latest Contact Info) Description 04/26/2019 12:54 PM CDT - 04/26/2019 11:59 PM CDT Hospital Encounter [facility] [address] [place] [phone] Judah Norton MD [address] [place] [phone] Discharge Disposition: Home or Self Care Social [...] fluticasone propionate (FLONASE) 50 MCG/ACT nasal spray [place] 1 spray into each nostril once daily [...] test strip 04/17/2019 vitamin D, ergocalciferol, (DRISDOL) 32288 units capsule Take 50,000 Units by mouth [...] Region Laterality Modality Ankle / Foot Radiographic Otma ging 04/26/2019 1:20 PM CDT Impressions 04/26/2019 [...] on filedocumented in this encounter Care Teams Leadership Development Instructor Relationship Specialty Start Date End Date Aditya Castro Update Information PCP - General 03/06/19 documented as of this encounter
--- OUTSIDE RECORDS SUMMARY | 2024-09-07 23:24 | XMS_ITS | Encounter Summary ---
Author Organization [facility] Address [address] [place] [address] Care Team Providers Care Chemist Food Name Role Phone Aditya Castro Primary Care Provider Unavailab le Reason for Visit * Reason Comments Establish Care Arthritis and Gout Encounter Details Date Type Department Care Team (Latest Contact Info) Description 03/07/2019 8:30 AM CDT Office Visit [facility] Rheumatology [address] [place] [address] Carlton Delarosa MD [address] [address] Gout, unspecified cause, unspecified chronicity, [...] At the Doctor's Office Building at [address], [address], call [phone] If you need a refill request, have your pharmacy fax a request to [phone] If you need to leave a message for Dr. Norton, you can send her an electronic message via [employer] a voicemail at [phone]. Her office FAX number is [phone]. For after hours emergency only, you can call the [facility] painting machine operator at [phone] and ask for the Manifold Operator machine stone polisher apprentice to be paged. documented in this encounter [...] note. Carlton Delarosa MD, FACP, FAAP, MACR Tub Wash Operator and Pediatric Rheumatology Professor of Internal Medicine,Pediatrics, and Molecular Immunology [facility] documented in this encounter Consult Notes * Judah Norton MD - 03/07/2019 8:49 AM CDT [facility] Rheumatology Consult H&P PCP: Aditya Castro HPI: 48 year old male with DM, HTN ,HLD , CKD stage IV, and other co morbidities who is seen in clinic today as a referral for gout and arthritis. Patient was previously evaluated by rheumatology at [facility] and was told he had gout and [...] No Dry Mouth [x] Yes [] No [place] Pain [x] Yes [] No Oral Ulcers [...] as needed ??? vitamin D, ergocalciferol, (DRISDOL) 35031 units capsule Take 50,000 Units by mouth [...] negative C4 78, C3 140 SHAWN, [place], HEALTHCARE LIAISON, dsDNA, SSA, SSB negative [place]-1 negative HLA-B27 [...] Region Laterality Modality Pelvis, Lower Extremity Radiogra [facility] Imaging 04/26/2019 1:20 PM CDT Impressions 04/26/2019 [...] 19 units 04/29/2019 9:06 PM CDT [facility] ([facility]) Comment: ?Negative ? <20 ?Weak positive ?20 - 39 ?Moderate positive ??40 - 59 ?Strong positive ?>59 Blood BLOOD SPECIMEN / Unknown Lab Venipuncture / Unknown 04/26/2019 12:42 PM CDT 04/26/2019 1:18 PM CDT Narrative [facility] ([facility]) - 04/29/2019 9:06 PM CDT Performed at: ??01 - [address] ??[id number] Swine Nutritionist: Con Grimaldo MD, Phone: ??[phone] Judah Norton MD LAB - SEROLOGY ORDER [facility] ([facility]) [address] [place] [address] * RHEUMATOID FACTOR BLOOD QUANTITATIVE (04/26/2019 12:42 PM CDT) Rheumatoid Factor <15 <30 IU/mL 04/26/2019 2:34 PM CDT [facility] LABORATORY [facility] Blood BLOOD SPECIMEN / Unknown Lab Venipuncture / Unknown 04/26/2019 12:42 PM CDT 04/26/2019 1:18 PM CDT Judah Norton MD LAB - CHEMISTRY SUSANNAH LEONE Performing Organization Address City/[facility]/ZIP Co de Phone Number [address] [phone] * SS-B (SJOGREN'S) ANTIBODY (04/26/2019 12:42 PM CDT) SS-B LA Antibody 2.8 0.0 - 19.9 Units 04/30/2019 9:45 AM CDT [facility] Comment: JOSE ENRIQUE Antibody Numeric Result Interpretation: ?<20.0 Units: ??Negative ?20.0 - 39.0 Units: ??Weakly Positive ?>39.0 Units: ??Positive ? Blood BLOOD SPECIMEN / Unknown Lab Venipuncture / Unknown 04/26/2019 12:42 PM CDT 04/26/2019 1:19 PM CDT Judah Norton MD LAB - CHEMISTRY SUSANNAH LEONE [address] [phone] * SS-A (SJOGREN'S) ANTIBODY (04/26/2019 12:42 PM CDT) SS-A (Ro) Antibody 2.7 0.0 - 19.9 Units 04/30/2019 9:45 AM CDT [facility] Comment: JOSE ENRIQUE Antibody Numeric Result Interpretation: ?<20.0 Units: ??Negative ?20.0 - 39.0 Units: ??Weakly Positive ?>39.0 Units: ??Positive ? Blood BLOOD SPECIMEN / Unknown Lab Venipuncture / Unknown 04/26/2019 12:42 PM CDT 04/26/2019 1:19 PM CDT Judah Norton MD LAB - CHEMISTRY SUSANNAH LEONE Performing Organization Address [facility] de Phone Number [address] [phone] * SHAWN BLOOD SCREEN W/REFLEX TITER (04/26/2019 12:42 PM CDT) SHAWN Negative 04/27/2019 3:07 PM CDT [facility] ([facility]) Comment: ? Negative ?? <1:80 ? Borderline ??1:80 ? Positive ?? >1:80 Blood BLOOD SPECIMEN / Unknown Lab Venipuncture / Unknown 04/26/2019 12:42 PM CDT 04/26/2019 1:18 PM CDT Narrative [facility] ([facility]) - 04/27/2019 3:07 PM CDT Performed at: ??01 - [facility] [address], [place], [place] ??[id number] Swine Nutritionist: Mehdi Del Angel PhD, Phone: ??[phone] Judah Norton MD LAB - CHEMISTRY SUSANNAH LEONE Performing Organization Address [facility] Co de Phone Number [facility] ([facility]) [address] [place] [address] * (ABNORMAL) VITAMIN D 25-HYDROXY (04/26/2019 12:42 PM CDT) [facility] Signature Vitamin D, 25 Hydroxy 15.1(L) See comment: ng/mL 04/26/2019 2:25 PM CDT [facility] Comment: The recommendations for 25-Hydroxy [...] Norton MD LAB - CHEMISTRY SUSANNAH LEONE [facility] [address] [phone] * (ABNORMAL) URINALYSIS W/MICROSCOPIC NO CULTURE (04/26/2019 12:42 PM [facility]) Color UA Yellow Straw, Yellow, Colorless 04/26/2019 1:31 PM [facility] Clarity UA Slt Cloudy Clear, Slt Cloudy 04/26/2019 1:31 PM [facility] Specific [place] UA 1.013 1.005 - 1.030 04/26/2019 1:31 PM [facility] pH UA 5.0 5.0 - 8.0 pH 04/26/2019 1:31 PM [facility] Protein UA 2+(A) Negative mg/dL 04/26/2019 1:31 PM [facility] Glucose UA 1+(A) Negative mg/dL 04/26/2019 1:31 PM [facility] Ketone UA Negative Negative mg/dL 04/26/2019 1:31 PM [facility] Bilirubin UA Negative Negative mg/dL 04/26/2019 1:31 PM [facility] Blood UA Negative Negative 04/26/2019 1:31 PM [facility] Nitrite UA Negative Negative 04/26/2019 1:31 PM [facility] Leukocyte Esterase Negative Negative 04/26/2019 1:31 PM [facility] Urobilinogen UA Negative Negative mg/dL 04/26/2019 1:31 PM [facility] RBC UA 0-2 None Seen, 0-2, 3-5 /HPF 04/26/2019 1:31 PM [facility] WBC UA 0-5 None Seen, 0-5 /HPF 04/26/2019 1:31 PM [facility] Squamous Epithelial Cells UA 0-2 None Seen, 0-2 /HPF 04/26/2019 1:31 PM [facility] Mucus UA 1+ None, 1+ /LPF 04/26/2019 1:31 PM [facility] Hyaline Casts UA 11-20(A) None Seen, 0-2 /LPF 04/26/2019 1:31 PM [facility] Urine URINE SPECIMEN OBTAINED BY CLEAN CATCH PROCEDURE / Unknown Collection / Unknown 04/26/2019 12:42 PM CDT 04/26/2019 1:18 PM CDT Narrative [facility] - 04/26/2019 1:31 PM CDT Judah Norton MD LAB - URINALYSIS ORD ERABLES Performing Organization Address [facility]/ZIP Co de Phone Number [address] [phone] * (ABNORMAL) ERYTHROCYTE SEDIMENTATION RATE (04/26/2019 12:42 PM CDT) Erythrocyte Sedimentation Rate Westergren 34(H) 0 - 20 MM/HR 04/26/2019 1:31 PM CDT [facility] Blood BLOOD SPECIMEN / Unknown Lab Venipuncture / Unknown 04/26/2019 12:42 PM CDT 04/26/2019 1:19 PM CDT Judah Norton MD LAB - HEMATOLOGY ORD ERABLES Performing Organization Address [facility]/ZIP Co de Phone Number [address] [phone] * C-REACTIVE PROTEIN (04/26/2019 12:42 PM CDT) C-Reactive Protein <0.5 <=0.5 mg/dL 04/26/2019 2:21 PM CDT [facility] Blood BLOOD SPECIMEN / Unknown Lab Venipuncture / Unknown 04/26/2019 12:42 PM CDT 04/26/2019 1:19 PM CDT Judah Norton MD LAB - CHEMISTRY ORDE RABLES Performing Organization Address City/[facility]/[place] [address], [facility] [phone] * (ABNORMAL) COMPREHENSIVE METABOLIC PANEL (04/26/2019 12:42 PM CDT) BUN 72(H) 7 - 26 mg/dL 04/26/2019 1:43 PM [facility] Creatinine 4.9(H) 0.6 - 1.2 mg/dL 04/26/2019 1:43 PM [facility] Sodium 138 136 - 145 mmol/L 04/26/2019 1:43 PM [facility] Potassium 4.1 3.5 - 4.5 mmol/L 04/26/2019 1:43 PM [facility] Chloride 101 98 - 107 mmol/L 04/26/2019 1:43 PM [facility] CO2 22 22 - 29 mmol/L 04/26/2019 1:43 PM [facility] Glucose 227(H) 70 - 115 mg/dL 04/26/2019 1:43 PM [facility] Calcium 9.2 8.4 - 10.2 mg/dL 04/26/2019 1:43 PM [facility] Protein Total 6.9 6.0 - 8.3 g/dL 04/26/2019 1:43 PM [facility] Albumin 3.6 3.4 - 5.0 g/dL 04/26/2019 1:43 PM [facility] Bilirubin Total 0.4 0.2 - 1.2 mg/dL 04/26/2019 1:43 PM [facility] Alkaline Phosphatase 83 40 - 150 Units/L 04/26/2019 1:43 PM [facility] ALT 32 0 - 55 Units/L 04/26/2019 1:43 PM [facility] AST 30 5 - 34 Units/L 04/26/2019 1:43 PM [facility] Anion Gap 19(H) 8 - 18 04/26/2019 1:43 PM [facility] BUN/Creatinine Ratio 15 7 - 23 04/26/2019 1:43 PM [facility] Osmolality Calculated 314(H) 270 - 300 mOsm/kg 04/26/2019 1:43 PM [facility] Albumin/Globulin Ratio 1.1 1.1 - 2.3 04/26/2019 1:43 PM [facility] eGFR 13(L) >60 mL/min/1.7 3 m2 04/26/2019 1:43 PM [facility] Blood BLOOD SPECIMEN / Unknown Lab Venipuncture / Unknown 04/26/2019 12:42 PM CDT 04/26/2019 1:19 PM CDT Judah Norton MD LAB - CHEMISTRY SUSANNAH Roman Organization Address City/State/ZIP Co de Phone Number [facility] [address] [place] [address] * (ABNORMAL) CBC WITH DIFFERENTIAL (04/26/2019 12:42 PM CDT) WBC 4.9 3.5 - 10.5 10? 3 /uL 04/26/2019 1:22 PM [facility] RBC 3.40(L) 4.30 - 5.70 10? 6 /uL 04/26/2019 1:22 PM [facility] Hemoglobin 10.0(L) 13.5 - 17.5 g/dL 04/26/2019 1:22 PM [facility] Hematocrit 29.5(L) 39.0 - 50.0 % 04/26/2019 1:22 PM [facility] MCV 86.8 81.0 - 97.0 fL 04/26/2019 1:22 PM [facility] MCH 29.4 28.0 - 34.0 pg 04/26/2019 1:22 PM [facility] MCHC 33.9 32.0 - 36.0 g/dL 04/26/2019 1:22 PM [facility] Platelet Count 243 150 - 400 10? 3 /uL 04/26/2019 1:22 PM [facility] RDW-SD 39.9 36.0 - 50.0 fL 04/26/2019 1:22 PM [facility] RDW-CV 12.5 11.2 - 14.8 % 04/26/2019 1:22 PM [facility] MPV 9.7 9.3 - 12.8 fL 04/26/2019 1:22 PM [facility] nRBC Absolute 0.00 0 10? 3 /uL 04/26/2019 1:22 PM [facility] nRBC Auto 0.0 0 /100 WBC 04/26/2019 1:22 PM [facility] Neutrophils % 57.8 35.0 - 70.0 % 04/26/2019 1:22 PM [facility] Lymphocytes % 27.1 19.7 - 55.1 % 04/26/2019 1:22 PM [facility] Monocytes % 11.2 3.0 - 15.0 % 04/26/2019 1:22 PM [facility] Eosinophils % 2.9 0.0 - 6.0 % 04/26/2019 1:22 PM [facility] Basophil % 0.6 0.0 - 1.5 % 04/26/2019 1:22 PM [facility] Neutrophils Absolute 2.8 1.6 - 7.0 10? 3 /uL 04/26/2019 1:22 PM [facility] Lymphocyte Absolute 1.3 0.8 - 2.9 10? 3 /uL 04/26/2019 1:22 PM [facility] Monocytes Absolute 0.55 0.14 - 0.66 10? 3 /uL 04/26/2019 1:22 PM [facility] Eosinophils Absolute 0.14 0.00 - 0.45 10? 3 /uL 04/26/2019 1:22 PM [facility] Basophils Absolute 0.03 0.00 - 0.06 10? 3 /uL 04/26/2019 1:22 PM [facility] Immature Granulocytes % 0.4 0.0 - 1.0 % 04/26/2019 1:22 PM [facility] Blood BLOOD SPECIMEN / Unknown Lab Venipuncture / Unknown 04/26/2019 12:42 PM CDT 04/26/2019 1:19 PM CDT Judah Norton MD LAB - HEMATOLOGY ORD ERABLES [facility] [address] [phone] * (ABNORMAL) CK BLOOD (04/26/2019 12:42 PM CDT) CK Total 280(H) 30 - 200 Units/L 04/26/2019 1:43 PM [facility] Blood BLOOD SPECIMEN / Unknown Lab Venipuncture / Unknown 04/26/2019 12:42 PM CDT 04/26/2019 1:19 PM CDT Judah Norton MD LAB - CHEMISTRY SUSANNAH LEONE [address] [phone] * (ABNORMAL) LDH BLOOD (04/26/2019 12:42 PM CDT) LDH Total 268(H) 125 - 243 Units/L 04/26/2019 1:43 PM CDT [facility] Blood BLOOD SPECIMEN / Unknown Lab Venipuncture / Unknown 04/26/2019 12:42 PM CDT 04/26/2019 1:19 PM CDT Judah Norton MD LAB - CHEMISTRY SUSANNAH LEONE Performing Organization Address [facility]/ZIP Co de Phone Number [address] [phone] * ALDOLASE (04/26/2019 12:42 PM CDT) Aldolase 6.9 3.3 - 10.3 U/L 04/29/2019 3:08 PM CDT [facility] ([facility]) Blood BLOOD SPECIMEN / Unknown Lab Venipuncture / Unknown 04/26/2019 12:42 PM CDT 04/26/2019 1:18 PM CDT Narrative [facility] ([facility]) - 04/29/2019 3:08 PM CDT Performed at: ??01 - [facility] [address] [place], [place] ??[id number] Swine Nutritionist: Mehdi Del Angel PhD, Phone: ??[phone] Judah Norton MD LAB - CHEMISTRY SUSANNAH LEONE Performing Organization Address City/[facility]/ZIP Co de Phone Number [facility] ([facility]) [address] [place] [address], [facility] * URIC ACID BLOOD (04/26/2019 12:42 PM CDT) Uric Acid 4.4 2.6 - 7.2 mg/dL 04/26/2019 2:13 PM CDT [facility] Blood BLOOD SPECIMEN / Unknown Lab Venipuncture / Unknown 04/26/2019 12:42 PM CDT 04/26/2019 1:19 PM CDT Judah Norton MD LAB - CHEMISTRY SUSANNAH LEONE [facility] Organization Address City/State/ZIP Co de Phone Number [address] [phone] documented in this encounter Visit Diagnoses Diagnosis Gout, unspecified cause, unspecified chronicity, unspecified site- Primary Sic[place], unspecified type (HCC) Osteoarthritis, unspecified osteoarthritis type, unspecified site documented in this encounter Care Teams Chemist Food Relationship Specialty Start Date End Date Aditya Castro Update Information PCP - General 03/06/19 documented as of this encounter
--- OUTSIDE RECORDS SUMMARY | 2024-09-07 23:24 | XMS_ITS | Encounter Summary ---
Author Organization [facility] Address [address] [facility] [place] [address] Care Team Providers Care Acid Retort Operator Name Role Phone Aditya Castro Primary Care Provider Unavailab le Reason for Visit * Reason Comments Kidney Transplant Evaluation Encounter Details Date Type Department Care Team (Late st Contact Info) Description 02/05/2020 Telephone [facility] TRANSPLANT [address] [place] [phone] Gracie Chambers, RN Kidney Transplant Evaluation Social [...] on filedocumented in this encounter Care Teams Acid Retort Operator Relationship Specialty Start Date End Date Aditya Castro Update Information PCP - General 03/06/19 documented as of this encounter
--- OUTSIDE RECORDS SUMMARY | 2024-09-07 23:24 | XMS_ITS | Encounter Summary ---
Author Organization [facility] Address [address] [place] [address] Care Team Providers Care Cruller Maker Name Role Phone Jhonatan Bellamy MD Primary Care Provider [phone] Reason for Visit * Auth/Cert Specialty Diagnoses / Procedures Referred By Contac t Referred To Contact Diagnoses chest pain shortness of breath Referral ID Status Reason Start Date Expiration Date Visits Re quested Visits Authorized [id number] 1 1 Encounter Details Date Type Department Care Team (Latest Contact Info) Description 11/22/2018 7:13 AM CDT - 11/23/2018 6:30 PM CDT Hospital Encounter [facility] 2N TELE/ONCOLOGY [address] [place] [address] Francisco Luque MD [address] [place] [address] Cardiac Catheterization Discharge Disposition: Home or Self [...] 11/23/2018 11:02 AM CDT Physician Discharge Summary [facility] Patient ID: Juvenal Garvin [id number] 48 year old 1970 Admit date: 11/22/2018 [...] Comments Your discharge diagnosis is: Coronary arteriosclerosis [[id number]] Follow up with Primary Care Provider (PCP) [...] am 2.74 Per nursing assessments: Transportation (who): Sign Maker/Support: Sign Maker/Support Person - Relationship:: Lorne- Brother Sign Maker person: Home/Functional Status: Equipment with patient: None Assistive Devices: None ?. Will continue to follow. For any questions or needs please contact: Egg Candler Name/Phone number: Janee Ruelas RN * Dimitrios Narvaez RN - 11/23/2018 12:50 AM CDT Problem: Incision Care Goal: Signs and symptoms of infections are decreased or avoided Outcome: Ongoing 11/22/18 2330 Precautions Implemented Precautions None * Francicso Luque MD - 11/22/2018 8:13 AM CDT CARDIAC ASSEMBLER GOLD FRAME INDICATIONS PRE PROCEDURE H&P and AUC TOOL [...] for performance of procedure. Monitoring: heart rate, collet making machine operator, continuous pulse oximetry, frequent blood pressure checks,level of consciousness, IV access, constant attendance by RN until patient recovered, and emergencyairway equipment available. Based on the above criteria, I believe that patient meets clinical indications for a cardiac catheterization. Francisco Luque MD 11/22/2018 8:13 AM documented in this encounter Procedure Notes * Francisco Luque MD - 11/23/2018 3:23 AM CDTAssociated Order(s): CARDIAC CATH [facility] CARDIAC CATHETERIZATION PATIENT: JUVENAL GARVIN MR#: [id number] ADMIT DATE: 11/22/2018 CSN: [id number] PROCEDURE DATE: 11/22/2018 : 1970 PHYSICIAN: Francisco Luque Jr., MD ROOM: [facility] REFERRING PHYSICIAN: Francisco Luque Jr., MD [...] was placed in right femoral artery. A 5-Bahamian #4 Kranthi left coronary catheter was advanced in the left coronary ostium and left coronary arteriograms were performed in multiple projections. This catheter was removed and exchanged for 5-Bahamian #4 Kranthi right coronary catheter, was advanced in the right coronary ostium. Right coronary arteriography was performed in multiple projections. This catheter was removed. The decision was made to proceed with intervention and therefore no left ventriculogram was performed to avoid excess dye in this patient with severe kidney disease. The arterial sheath was exchanged for 6-Bahamian sheath followed by advancement of a 6-Bahamian #4 Kranthi right guide to the right [...] gentleman. FRANCISCO LUQUE JR., MD RPR/MODL #: [id number] cc: Francisco Luque Jr., MD MEDICAL/SURGICAL CARDIAC CATHETERIZATION - DP documented in this encounter Miscellaneous Notes * Significant Event - Kristie Lizama - 11/23/2018 11:31 AM CDT Nursing Hypoglycemia Note Juvenal Garvin [id number] Date of occurrence: 11/23/2018 Time of occurrence: [...] Lab Values Lab Results Component Value Date/Time [id number] 31 (LL) 11/23/2018 11:19 AM [id number] 469 (HH) 11/22/2018 09:29 PM [id number] 316 (H) 11/22/2018 03:05 PM [id number] 123 (H) 11/22/2018 12:14 PM Lab Results [...] CONSIST CARB CARDIAC Pertinent administrations from the [facility] Related Administrations from [facility] (last 12 hours) Date/Time Action User Medication [...] 3:25 AM CDT 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[place] heart with stable angina pectoris, unspecified vessel [...] 7:33 AM CDT 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[place] heart with stable angina pectoris, unspecified vessel [...] POINT OF CARE (11/23/2018 2:11 PM CDT) [facility] Glucose WB/POC 192(H) 70 - 106 mg/dL 11/26/2018 10:39 AM CDT [facility] Specimen Type UNKNOWN SAMPLE TYPE 11/26/2018 10:39 AM CDT [facility] Blood BLOOD SPECIMEN / Unknown 11/23/2018 2:11 PM CDT 11/26/2018 10:39 AM CDT Francisco Luque MD LAB - POINT OF CARE ORDERABLES Performing Organization Address [facility] Co de Phone Number [facility] [address] [place] [phone] * GLUCOSE - POINT OF CARE (11/23/2018 12:00 PM CDT) Glucose WB/POC 90 70 - 106 mg/dL 11/23/2018 5:57 PM CDT [facility] Blood BLOOD SPECIMEN / Unknown 11/23/2018 12:00 PM CDT 11/23/2018 5:57 PM CDT Francisco Luque MD LAB - POINT OF CARE ORDERABLES Performing Organization Address [facility] de Phone Number [facility] [address] [place] [address] * (ABNORMAL) GLUCOSE - POINT OF CARE (11/23/2018 11:23 AM CDT) Glucose WB/POC 35(LL) 70 - 106 mg/dL 11/23/2018 5:57 PM CDT [facility] Blood BLOOD SPECIMEN / Unknown 11/23/2018 11:23 AM CDT 11/23/2018 5:57 PM CDT Francisco Luque MD LAB - POINT OF CARE ORDERABLES Performing Organization Address [facility] Co de Phone Number [facility] [address] [place] [address] * (ABNORMAL) GLUCOSE - POINT OF CARE (11/23/2018 11:19 AM CDT) Glucose WB/POC 31(LL) 70 - 106 mg/dL 11/23/2018 11:26 AM CDT [facility] Blood BLOOD SPECIMEN / Unknown 11/23/2018 11:19 AM CDT 11/23/2018 11:26 AM CDT Francisco Luque MD LAB - POINT OF CARE ORDERABLES Performing Organization Address [facility] de Phone Number [facility] [address] [place], [place] [phone] * GLUCOSE - POINT OF CARE (11/23/2018 7:48 AM CDT) Glucose WB/POC 81 70 - 106 mg/dL 11/23/2018 11:51 PM CDT [facility] Blood BLOOD SPECIMEN / Unknown 11/23/2018 7:48 AM CDT 11/23/2018 11:51 PM CDT Francisco Luque MD LAB - POINT OF CARE ORDERABLES Performing Organization Address [facility] de Phone Number [facility] [address] [place] [address] * (ABNORMAL) HEMOGLOBIN A1C (11/23/2018 3:25 AM CDT) Hemoglobin A1c 7.5(H) 4.0 - 6.1 % 11/23/2018 4:12 AM CDT [facility] Estimated Average Glucose 169 mg/dL 11/23/2018 4:12 AM CDT [facility] Blood BLOOD SPECIMEN / Unknown Venipuncture / Unknown 11/23/2018 3:25 AM CDT 11/23/2018 3:57 AM CDT Narrative [facility] - 11/23/2018 4:12 AM CDT Attention clinician: ??Reference Range has changed. Francisco Luque MD LAB - CHEMISTRY SUSANNAH LEONE Performing Organization Address [facility] de Phone Number [facility] [address] [place] [address] * (ABNORMAL) BASIC METABOLIC PANEL (CALCIUM TOTAL) (11/23/2018 3:25 AM CDT) Glucose 195(H) 74 - 106 mg/dL 11/23/2018 5:10 AM CDT [facility] Sodium 135(L) 136 - 145 mmol/L 11/23/2018 5:10 AM CDT [facility] Potassium 3.8 3.5 - 5.1 mmol/L 11/23/2018 5:10 AM CDT [facility] Chloride 104 98 - 107 mmol/L 11/23/2018 5:10 AM CDT [facility] CO2 23 23 - 31 mmol/L 11/23/2018 5:10 AM CDT [facility] Calcium 8.3(L) 8.4 - 10.2 mg/dL 11/23/2018 5:10 AM CDT [facility] Anion Gap 8 8 - 16 mmol/L 11/23/2018 5:10 AM CDT [facility] BUN 56(H) 8.4 - 25.7 mg/dL 11/23/2018 5:10 AM CDT [facility] Creatinine 2.74(H) 0.73 - 1.18 mg/dL 11/23/2018 5:10 AM CDT [facility] eGFR by MDRD 25(L) >60 mL/min/1.7 3m2 11/23/2018 5:10 AM CDT [facility] eGFR by MDRD 30(L) >60 mL/min/1.7 3m2 11/23/2018 5:10 AM CDT [facility] Blood BLOOD SPECIMEN / Unknown Venipuncture / Unknown 11/23/2018 3:25 AM CDT 11/23/2018 4:37 AM CDT Francisco Luque MD LAB - CHEMISTRY [facility] Performing Organization Address City/[facility]/ZIP Co de Phone Number [facility] [address] [place], [place] [phone] * (ABNORMAL) GLUCOSE - POINT OF CARE (11/22/2018 9:29 PM CDT) [facility] Glucose WB/POC 469(HH) 70 - 106 mg/dL 11/22/2018 9:35 PM CDT [facility] Blood BLOOD SPECIMEN / Unknown 11/22/2018 9:29 PM CDT 11/22/2018 9:35 PM CDT Narrative [facility] - 11/22/2018 9:35 PM CDT CAPILLARY BLOOD Francisco Luque MD LAB - POINT OF CARE ORDERABLES [facility] [address] [place] [phone] * (ABNORMAL) GLUCOSE - POINT OF CARE (11/22/2018 4:55 PM CDT) Glucose WB/POC 427(H) 70 - 106 mg/dL 11/26/2018 10:06 AM CDT [facility] Specimen Type UNKNOWN SAMPLE TYPE 11/26/2018 10:06 AM CDT [facility] Blood BLOOD SPECIMEN / Unknown 11/22/2018 4:55 PM CDT 11/26/2018 10:06 AM CDT Francisco Luque MD LAB - POINT OF CARE ORDERABLES Performing Organization Address City/[facility]/ZIP Co de Phone Number [facility] [address] [place] [address] * (ABNORMAL) GLUCOSE - POINT OF CARE (11/22/2018 3:05 PM CDT) Glucose WB/POC 316(H) 70 - 106 mg/dL 11/22/2018 5:37 PM CDT [facility] Blood BLOOD SPECIMEN / Unknown 11/22/2018 3:05 PM CDT 11/22/2018 5:37 PM CDT Francisco Luque MD LAB - POINT OF CARE ORDERABLES Performing Organization Address [facility] Co de Phone Number [facility] [address] [place] [address] * (ABNORMAL) GLUCOSE - POINT OF CARE (11/22/2018 12:14 PM CDT) Glucose WB/POC 123(H) 70 - 106 mg/dL 11/22/2018 12:15 PM CDT [facility] Blood BLOOD SPECIMEN / Unknown 11/22/2018 12:14 PM CDT 11/22/2018 12:15 PM CDT Francisco Luque MD LAB - POINT OF CARE ORDERABLES Performing Organization Address [facility]/ZIP Co de Phone Number [facility] [address] [place] [phone] * CARDIAC CATH PROCEDURE (11/22/2018 12:00 PM CDT) 11/22/2018 12:0 0 PM CDT Narrative Procedure Note Francisco Luque MD - 11/23/2018 3:23 AM CDT [facility] CARDIAC CATHETERIZATION PATIENT: JUVENAL GARVIN MR#: [id number] ADMIT DATE: 11/22/2018 CSN: [id number] PROCEDURE DATE: 11/22/2018 :1970 PHYSICIAN: Francisco Luque Jr., MD ROOM: [facility] REFERRING PHYSICIAN: Francisco Luque Jr., MD [...] sheath wasplaced in right femoral artery. A 5-Bahamian #4 Kranthi left coronary catheterwas advanced in the left coronary ostium and left coronary arteriograms were performed in multiple projections. This catheter was removed and exchangedfor 5-Bahamian #4 Kranthi right coronary catheter, was advanced in the right coronary ostium. Right coronary arteriography was performed in multiple projections. This catheter was removed. The decision was made to proceedwith intervention and therefore no left ventriculogram was performed to avoid excess dye in this patient with severe kidney disease. The arterial sheathwas exchanged for 6-Bahamian sheath followed by advancement of a 6-Bahamian #4Judkins right guide to the right coronary [...] descending artery. Injection of contrast reveals an eizlsyaankfkc06% stenosis and mid 90% stenosis and a [...] gentleman. FRANCISCO LUQUE JR., MD RPR/MODL #: [id number] cc: Francisco Luque Jr., MD MEDICAL/SURGICAL CARDIAC CATHETERIZATION - DP Francisco Luque MD CARDIAC SERVICES ORD ERABLES [facility] * GLUCOSE - POINT OF CARE (11/22/2018 9:30 AM CDT) Glucose WB/POC 70 70 - 106 mg/dL 11/22/2018 9:33 AM CDT [facility] Specimen Type CAPILLARY BLOOD 11/22/2018 9:33 AM CDT [facility] Blood BLOOD SPECIMEN / Unknown 11/22/2018 9:30 AM CDT 11/22/2018 9:33 AM CDT Francisco Luque MD LAB - POINT OF CARE ORDERABLES [facility] [address] [place] [address] * (ABNORMAL) BASIC METABOLIC PANEL (CALCIUM TOTAL) (11/22/2018 7:33 AM CDT) Glucose 45(LL) 74 - 106 mg/dL 11/22/2018 8:04 AM CDT [facility] Sodium 139 136 - 145 mmol/L 11/22/2018 8:04 AM CDT [facility] Potassium 4.6 3.5 - 5.1 mmol/L 11/22/2018 8:04 AM CDT [facility] Chloride 108(H) 98 - 107 mmol/L 11/22/2018 8:04 AM CDT [facility] CO2 21(L) 23 - 31 mmol/L 11/22/2018 8:04 AM CDT [facility] Calcium 9.1 8.4 - 10.2 mg/dL 11/22/2018 8:04 AM CDT [facility] Anion Gap 10 8 - 16 mmol/L 11/22/2018 8:04 AM CDT [facility] BUN 65(H) 8.4 - 25.7 mg/dL 11/22/2018 8:04 AM CDT [facility] Creatinine 3.04(H) 0.73 - 1.18 mg/dL 11/22/2018 8:04 AM CDT [facility] eGFR by MDRD 22(L) >60 mL/min/1.7 3m2 11/22/2018 8:04 AM CDT [facility] eGFR by MDRD 27(L) >60 mL/min/1.7 3m2 11/22/2018 8:04 AM CDT [facility] Blood BLOOD SPECIMEN / Unknown Venipuncture / Unknown 11/22/2018 7:33 AM CDT 11/22/2018 7:38 AM CDT Francisco Luque MD LAB - CHEMISTRY SUSANNAH LEONE [facility] Organization Address City/State/[facility] Co de Phone Number [facility] [address] [place] [address] documented in this encounter Visit Diagnoses Diagnosis 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[place] heart with stable angina pectoris, unspecified vessel or lesion type (HCC)- Primary Controlled type 2 diabetes mellitus without complication, with long-term current use of insulin (HCC) 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[place] heart with stable angina pectoris (HCC) documented [...] 0912 0823 ($ Given - Provider: Caridad Emerosn RN) terazosin (HYTRIN) capsule 2 mg 2 [...] swallow. documented in this encounter Care Teams Cruller Maker Relationship Specialty Start Date End Date Jhonatan Bellamy MD [address] [place] [address] PCP - General Family Medicine 03/25/15 03/05/19 documented as of this encounter
--- OUTSIDE RECORDS SUMMARY | 2024-09-07 23:24 | XMS_ITS | Encounter Summary ---
Author Organization [facility] Address [address] [place] [phone] Phone Care Team Providers Care Resident Inspector Name Role Phone Unavailable Primary Care Provider Unavailabl e Reason for Visit * Reason Onset Date Comments Med Refill 02/13/2019 Encounter Details Date Type Department Care Team (Late st Contact Info) Description 02/13/2019 Refill [facility] [address], [address] [place] [address] Anabel Kingsley RN Social History Tobacco Use [...]
--- OUTSIDE RECORDS SUMMARY | 2024-09-07 23:24 | XMS_ITS | Encounter Summary ---
Author Organization [facility] Address [address] [facility] [place] [address] Care Team Providers Care Mine Engineering Supervisor Name Role Phone Aditya Castro Primary Care Provider Unavailab le Reason for Referral * Radiology Services (Routine) - Closed Specialty Diagnoses / Procedures Referred By Aguilar lora Referred To Contact Diagnoses Pre-transplant evaluation for kidney transplant Procedures VAS ARTERIAL ANKLE ARM INDEX Glenny Martin MD [address] [place] [address] [facility] Kidney Transplant [address] [place] [phone] Referral ID Status Reason Start Date Expiration Date Visits Re quested Visits Authorized [id number] Closed 05/14/2020 08/13/2020 1 1 * Radiology Services (Routine) - Closed Specialty Diagnoses / Procedures Referred By Aguilar lora Referred To Contact Diagnoses Pre-transplant evaluation for kidney transplant Procedures VAS BILATERAL VENOUS DUPLEX LE Glenny Martin MD [address] [place] [address] [facility] Kidney Transplant [address] [place] [phone] Referral ID Status Reason Start Date Expiration Date Visits Re quested Visits Authorized [id number] Closed 05/14/2020 08/13/2020 1 1 * Radiology Services (Routine) - Closed Specialty Diagnoses / Procedures Referred By Aguilar lora Referred To Contact Diagnoses Pre-transplant evaluation for kidney transplant Procedures CT ABDOMEN AND PELVIS NON IV CONTRAST Glenny Martin MD [address] [place] [address] [facility] Kidney Transplant [address] [place] [phone] Referral ID Status Reason Start Date Expiration Date Visits Re quested Visits Authorized [id number] Closed 05/14/2020 08/13/2020 1 1 * Radiology Services (Routine) - Closed Specialty Diagnoses / Procedures Referred By Aguilar lora Referred To Contact Diagnoses Pre-transplant evaluation for kidney transplant Procedures ECHO STRESS TEST W DOBUTAMINE Glenny Martin MD [address] [place] [address] [facility] Kidney Transplant [address] [place] [phone] Referral ID Status Reason Start Date Expiration Date Visits Re quested Visits Authorized [id number] Closed 05/14/2020 08/13/2020 1 1 Reason for Visit * Reason Comments Kidney Transplant Evaluation health hist ory Encounter Details Date Type Department Care Team (Late st Contact Info) Description 03/20/2020 Telephone [facility] TRANSPLANT [address] [place] [phone] Anali Merino RN Kidney Transplant Evaluation [...] prior to starting testing. 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 In 2019 admitted to [facility] with chest pain and SOB. Pt [...] has a pump. 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 He states that he [...] for testing. Colonoscopy completed in 2019 at [facility]. Pt thinks the recommendation was a 5 year followup. Will request records. Pt sees a contract recruiter regularly. Reviewed process and test needed. Let [...] annulus calcifications. Dictated by Ash Moreira MD (radiology equipment servicer). I, Dr. HANNAH SPENCE have personally reviewed [...] annulus calcifications. Dictated by Ash Moreira MD (radiology equipment servicer). I, Dr. HANNAH SPENCE have personally reviewed [...] % PRA 4 05/29/2020 7:59 AM CDT [facility] ([facility]) Class 1 LUM Specificity - 05/29/2020 7:59 AM CDT [facility] ([facility]) Class 1 LUM Test Date 0 05/29/2020 7:59 AM CDT [facility] ([facility]) Comment: This test was developed and its performance characteristics determined by the [facility]. ??It has not been cleared or [...] high complexity clinical laboratory testing. ??CLIA ID# [id number] Performed at: ??[facility], [address] @ [place], [place] ??[phone] Collar Setter Overlock: Jarrod Chin MD, Blood BLOOD SPECIMEN / Unknown Lab Venipuncture / Unknown 05/14/2020 10:18 AM CDT 05/14/2020 10:52 AM CDT Glenny Martin MD LAB - BLOOD BAN K ORDERABLES [facility] ([facility]) [address] [place] [address], [facility] * HLA ANTIBODY SCREEN LUM CLASS 2 ID (05/14/2020 10:18 AM CDT) % PRA 90 05/29/2020 7:59 AM CDT [facility] ([facility]) Class 2 LUM Specificity - 05/29/2020 7:59 AM CDT [facility] ([facility]) Class 2 LUM Test Date 0 05/29/2020 7:59 AM CDT [facility] ([facility]) Comment: This test was developed and its performance characteristics determined by the [facility]. ??It has not been cleared or [...] high complexity clinical laboratory testing. ??CLIA ID# [id number] Performed at: ??[facility], [address] @ [place], [place] ??[phone] Collar Setter Overlock: Jarrod Chin MD, Blood BLOOD SPECIMEN / Unknown Lab Venipuncture / Unknown 05/14/2020 10:18 AM CDT 05/14/2020 10:52 AM CDT Glenny Martin MD LAB - BLOOD BAN K ORDERABLES Performing Organization Address City/[facility]/ZIP Co de Phone Number [facility] ([facility]) [address] [place] [phone], [facility] * HIV-1 HIV-2 ANTIGEN/ANTIBODY (05/14/2020 10:18 AM [...] - HEMATOLOG Y ORDERABLES Performing Organization Address City/[facility]/ZIP Co de Phone Number [address] [address], [facility] [phone] * (ABNORMAL) HEPATITIS A ANTIBODY (05/14/2020 10:18 AM CDT) Hepatitis A Virus Antibody Total Positive( A) Negative 05/16/2020 11:02 AM CDT [employer] ([facility]) Comment: The positive anti-HAV is consistent with recent or remote Hepatitis A infection or antibody response to HAV vaccination. False positive anti-HAV can occur. Performed by [facility], [address] [place] [id number] [email or web address], Valerie Mast MD, Lab. Director Blood BLOOD SPECIMEN / Unknown Lab Venipuncture / Unknown 05/14/2020 10:18 AM CDT 05/14/2020 10:57 AM CDT Glenny Martin MD LAB - CHEMISTRY ORDERABLES Performing Organization Address City/[facility]/ZIP Co de Phone Number [employer] ([facility]) [address] * (ABNORMAL) PTH INTACT ([facility]) (05/14/2020 10:18 AM CDT) [facility] PTH Intact 653.3(H) 8.0 - 77.0 pg/mL 05/14/2020 11:34 AM CDT [facility] Blood BLOOD SPECIMEN / Unknown Lab Venipuncture / Unknown 05/14/2020 10:18 AM CDT 05/14/2020 10:55 AM CDT Glenny Martin MD LAB - CHEMISTRY ORDERABLES Performing Organization Address [facility]/ZIP Co de Phone Number [place] [id number] [place] [address], [facility] [phone] * TOXOPLASMA GONDII ANTIBODY IGG (05/14/2020 10:18 AM CDT) [facility] Toxoplasma Antibody IgG <3.0 IU/mL 05/16/2020 6:32 PM CDT [employer] ([facility]) Comment: INTERPRETIVE INFORMATION: Toxoplasma Ab, IgG ??7.1 [...] the amount of antibody present. Performed By: [facility] [address] [place] [address] Binder Stripper Hand: Valerie Mast MD Blood BLOOD SPECIMEN / Unknown Lab Venipuncture / Unknown 05/14/2020 10:18 AM CDT 05/14/2020 10:58 AM CDT Glenny Martin MD LAB - CHEMISTRY ORDERABLES [facility] [place] ([facility]) [address] [place] [address], [facility] * STRONGYLOIDES ANTIBODY IGG (05/14/2020 10:18 AM CDT) Strongyloides Antibody IgG 0.2 <=0.9 IV 05/17/2020 10:58 PM CDT [facility] [place] ([facility]) Comment: INTERPRETIVE INFORMATION: Strongyloides Ab, IgG by [...] also result in false-positive results. Performed By: [employer] [address] [place] [address] Binder Stripper Hand: Valerie Mast MD Blood BLOOD SPECIMEN / Unknown Lab Venipuncture / Unknown 05/14/2020 10:18 AM CDT 05/14/2020 10:55 AM CDT Glenny Martin MD LAB - SEROLOGY ORDERABLES Performing Organization Address [facility] Co de Phone Number [facility] ([facility]) [address] [place], [place] [address] * PROSTATE SPECIFIC ANTIGEN SCREEN (05/14/2020 10:18 AM CDT) PSA Total 0.4 0.0 - 4.0 ng/mL 05/14/2020 11:59 AM CDT [facility] Blood BLOOD SPECIMEN / Unknown Lab Venipuncture / Unknown 05/14/2020 10:18 AM CDT 05/14/2020 10:55 AM CDT Glenny Martin MD LAB - CHEMISTRY ORDERABLES Performing Organization Address [facility]/ZIP Co de Phone Number [address] [address], [facility] [phone] * CANNABINOID SCREEN BLOOD (05/14/2020 10:18 AM CDT) Marijuana Metabolites Negative 05/17/2020 12:06 AM CDT [facility] ([facility]) Comment:REFERENCE RANGE: thr shold: 5 ng/mL Specimen Type Comment 05/17/2020 12:06 AM CDT [facility] ([facility]) Comment: WHOLE BLOOD This specimen was screened [...] CDT 05/14/2020 10:53 AM CDT Narrative [facility] ([facility]) - 05/17/2020 12:06 AM CDT Performed at: ??01 - [employer] [address] [place] [address] ??[phone] Collar Setter Overlock: Radha Callahan [facility], Phone: ??[phone] Glenny Martin MD LAB - CHEMISTRY ORDERABLES [facility] ([facility]) [address] [place] [address] * IRON BLOOD (05/14/2020 10:18 AM CDT) Iron 84 50 - 175 mcg/dL 05/14/2020 11:41 AM CDT [facility] Blood BLOOD SPECIMEN / Unknown Lab Venipuncture / Unknown 05/14/2020 10:18 AM CDT 05/14/2020 10:57 AM CDT Glenny Martin MD LAB - CHEMISTRY ORDERABLES Performing Organization Address [facility]/ZIP Co de Phone Number [address] [address], [place] [phone] * (ABNORMAL) FERRITIN (05/14/2020 10:18 AM CDT) Ferritin 502(H) 22 - 275 ng/mL 05/14/2020 11:47 AM CDT [facility] Blood BLOOD SPECIMEN / Unknown Lab Venipuncture / Unknown 05/14/2020 10:18 AM CDT 05/14/2020 10:55 AM CDT Glenny Martin MD LAB - CHEMISTRY ORDERABLES Performing Organization Address [facility]/ZIP Co de Phone Number [address] [address], [place] [phone] * TRANSFERRIN (05/14/2020 10:18 AM CDT) Transferrin 245 174 - 382 mg/dL 05/14/2020 11:41 AM CDT [facility] Transferrin Saturation % 27 16 - 50 % 05/14/2020 11:41 AM CDT [facility] Blood BLOOD SPECIMEN / Unknown Lab Venipuncture / Unknown 05/14/2020 10:18 AM CDT 05/14/2020 10:57 AM CDT Glenny Martin MD LAB - CHEMISTRY ORDERABLES Performing Organization Address City/[facility] Co de Phone Number [facility] [address] [place] [address], [facility] [phone] * (ABNORMAL) VITAMIN D 25-HYDROXY (05/14/2020 10:18 AM CDT) [facility] Vitamin D, 25 Hydroxy 23.0(L) See comment: ng/mL 05/14/2020 11:48 AM CDT [facility] Comment: The recommendations for 25-Hydroxy Vitamin [...] Glenny Martin MD LAB - CHEMISTRY ORDERABLES [facility] [address] [place] [address], [place] [phone] * (ABNORMAL) URIC ACID BLOOD (05/14/2020 10:18 AM CDT) Pathologist [facility] Uric Acid 8.4(H) 2.6 - 7.2 mg/dL 05/14/2020 11:41 AM CDT [facility] Blood BLOOD SPECIMEN / Unknown Lab Venipuncture / Unknown 05/14/2020 10:18 AM CDT 05/14/2020 10:55 AM CDT Glenny Martin MD LAB - CHEMISTRY ORDERABLES Performing Organization Address [facility]/ZIP Co de Phone Number [facility] [address] [place] [address], [place] [phone] * HLA TYPING DNA LOW RESOLUTION DR,DQ (05/14/2020 10:18 AM CDT) Pathologist [facility] DR DQ Low Resolution DRB1-1 04 [...] Resolution DRB5-2 Negative 05/29/2020 7:59 AM CDT [facility] ([facility]) DR DQ Low Resolution Methodology SSOP 05/29/2020 7:59 AM CDT [facility] ([facility]) Comment DR DQ Low Resolution - 05/29/2020 7:59 AM CDT [facility] ([facility]) DR DQ Low Resolution test date 05/28/2020 05/29/2020 7:59 AM CDT [facility] ([facility]) Comment: This test was developed and its performance characteristics determined by the [facility]. ??It has not been cleared [...] high complexity clinical laboratory testing. ??CLIA ID# [id number] Performed at: ??[facility], [address] @ [place], [place] ??[phone] Collar Setter Overlock: Jarrod Chin MD, Blood BLOOD SPECIMEN / Unknown Lab Venipuncture / Unknown 05/14/2020 10:18 AM CDT 05/14/2020 10:52 AM CDT Glenny Martin MD LAB - BLOOD BAN K ORDERABLES [facility] ([facility]) [address] [place] [address], [facility] * HLA TYPING DNA LOW RESOLUTION A,B,C (05/14/2020 10:18 AM CDT) ABC DNA A1 03 05/29/2020 7:59 AM CDT [facility] ([facility]) ABC DNA A2 29 05/29/2020 7:59 AM CDT [facility] ([facility]) ABC DNA B1 07 05/29/2020 7:59 AM CDT [facility] ([facility]) ABC DNA B2 44 05/29/2020 7:59 AM CDT [facility] ([facility]) ABC DNA BW1 6 05/29/2020 7:59 AM CDT [facility] ([facility]) ABC DNA BW2 4 05/29/2020 7:59 AM CDT [facility] ([facility]) ABC DNA C1 07 05/29/2020 7:59 AM CDT [facility] ([facility]) ABC DNA C2 - 05/29/2020 7:59 AM CDT [facility] ([facility]) ABC DNA Methodology SSOP 05/29 7:59 AM CDT [facility] ([facility]) Comment ABC DNA - 0 7:59 AM CDT [facility] ([facility]) ABC DNA Test Date 0 05/29/2020 7:59 AM CDT [facility] ([facility]) Comment: This test was developed and its performance characteristics determined by the [facility]. ??It has not been cleared [...] high complexity clinical laboratory testing. ??CLIA ID# [id number] Performed at: ??[facility], [address] @ [place], [place] ??[phone] Collar Setter Overlock: Jarrod Chin MD, Blood BLOOD SPECIMEN / Unknown Lab Venipuncture / Unknown 05/14/2020 10:18 AM CDT 05/14/2020 10:52 AM CDT Glenny Martin MD LAB - BLOOD BAN K ORDERABLES [facility] ([facility]) [address] [place] [address], [facility] * VARICELLA ZOSTER ANTIBODY IGG (05/14/2020 10:18 AM CDT) Varicella zoster Virus Antibody IgG 3705.0 IV 05/16/2020 2:46 PM CDT [employer] ([facility]) Comment: INTERPRETIVE INFORMATION: VZV Ab, IgG 134.9 [...] laboratory at the same time. Performed By: [facility] [address] [place] [address] Binder Stripper Hand: Valerie Mast MD Blood BLOOD SPECIMEN / Unknown Lab Venipuncture / Unknown 05/14/2020 10:18 AM CDT 05/14/2020 10:57 AM CDT Glenny Martin MD LAB - CHEMISTRY ORDERABLES [facility] [place] [facility]) [address] [place] [address], [facility] * MUMPS ANTIBODY IGG (05/14/2020 10:18 AM CDT) Mumps Virus Antibody IgG 17.2 AU/mL 05/16/2020 6:30 PM CDT [facility] [place] ([facility]) Comment: INTERPRETIVE INFORMATION: Mumps Ab, IgG by [...] laboratory at the same time. Performed By: [facility] [address] [place] [address] Binder Stripper Hand: Valerie Mast MD Blood BLOOD SPECIMEN / Unknown Lab Venipuncture / Unknown 05/14/2020 10:18 AM CDT 05/14/2020 10:57 AM CDT Glenny Martin MD LAB - CHEMISTRY ORDERABLES Performing Organization Address City/State/[facility] Co de Phone Number [employer] ([facility]) [address] [place] [address], [facility] * RUBEOLA ANTIBODY IGG (05/14/2020 10:18 AM CDT) Measles ([facility]) Antibody IgG >300.0 AU/mL 05/16/2020 2:46 PM CDT [employer] ([facility]) Comment: INTERPRETIVE INFORMATION: Measles (Rubeola) Antibody, IgG [...] laboratory at the same time. Performed By: [facility] [address] [place] [address] Binder Stripper Hand: Valerie Mast MD Blood BLOOD SPECIMEN / Unknown Lab Venipuncture / Unknown 05/14/2020 10:18 AM CDT 05/14/2020 10:57 AM CDT Glenny Martin MD LAB - CHEMISTRY ORDERABLES [facility] [place] ([facility]) [address] [place] [address], [facility] * OPIATES BLOOD (05/14/2020 10:18 AM CDT) [facility] Opiates Screen Negative 05/17/2020 12:06 AM CDT [facility] ([facility]) Comment:REFERENCE RANGE: thr shold: 10 ng/mL Oxycodone Screen Negative 05/17/20 12:06 AM CDT [facility] ([facility]) Comment:REFERENCE RANGE: thr shold: 10 ng/mL Specimen Type Comment 05/17/2020 12:06 AM CDT [facility] ([facility]) Comment: WHOLE BLOOD This specimen was screened by immunoassay at the thresholds listed above. Presumptive positive results have not been confirmed by an alternate method; results are intended for clinical medical purposes. Please contact the laboratory if confirmatory testing is desired. This test was developed and its performance characteristics determined by [employer]. It has not been cleared or approved by the Food and Drug Administration. Blood BLOOD SPECIMEN / Unknown Lab Venipuncture / Unknown 05/14/2020 10:18 AM CDT 05/14/2020 10:53 AM CDT Narrative [facility] ([facility]) - 05/17/2020 12:06 AM CDT Performed at: ??01 - [employer] [address] ??[phone] Collar Setter Overlock: Radha Callahan [facility], Phone: ??[phone] Glenny Martin MD LAB - CHEMISTRY ORDERABLES Performing Organization Address [facility]/State/[facility] Co de Phone Number [facility] ([facility]) [address] [phone] * COCAINE METABOLITE QUANT (05/14/2020 10:18 AM CDT) [facility] Cocaine and Metabolite Blood <20 ng/mL 05/17/2020 11:07 PM CDT [facility] ([facility]) Comment: INTERPRETIVE INFORMATION: Cocaine Metabolite, ?Serum or Plasma, ?Quantitative Methodology: Quantitative Gas Chromatography- Mass Spectrometry Positive cutoff: 20 ng/mL ?? For medical purposes only; not valid for forensic use. The concentration value must be greater than or equal to the cutoff to be reported as positive. Interpretive questions should be directed to the laboratory. Test developed and characteristics determined by [employer]. See Compliance Statement B: [employer]/ Performed By: [facility] [address] [place] [id number] Binder Stripper Hand: Valerie Mast MD Blood BLOOD SPECIMEN / Unknown Lab Venipuncture / Unknown 05/14/2020 10:18 AM CDT 05/14/2020 10:55 AM CDT Glenny Martin MD LAB - CHEMISTRY ORDERABLES [employer] [facility]) [address] [place] [address], [facility] * AMPHETAMINE BLOOD CONFIRMATION (05/14/2020 10:18 AM CDT) Amphetamines Confirmation <20 ng/mL 05/20/2020 12:29 PM CDT [employer] ([facility]) Comment: INTERPRETIVE INFORMATION: Amphetamines, Serum or ?Plasma, [...] laboratory. Test developed and characteristics determined by [employer]. See Compliance Statement B: [email or web address] Methamphetamine Confirmation <20 ng/mL 05/20/2020 12:29 PM CDT [facility] ([facility]) MDA Confirmation <20 ng/mL 05/20/20 20 12:29 PM CDT [facility]) MDMA Confirm <20 ng/mL 05/20/2020 12:29 PM CDT [facility] [place] [facility]) MDEA Confirmation <20 ng/mL 020 12:29 PM CDT [facility] [place] [facility]) Comment: Performed By: [facility] [address] [place] [address] Binder Stripper Hand: Valerie Mast MD Blood BLOOD SPECIMEN / Unknown Lab Venipuncture / Unknown 05/14/2020 10:18 AM CDT 05/14/2020 10:57 AM CDT Glenny Martin MD LAB - CHEMISTRY ORDERABLES [employer] [facility]) [address] [place] [address], [facility] * NICOTINE + METABOLITES BLOOD (05/14/2020 10:18 AM CDT) Nicotine <2 ng/mL 05/18/2020 10:08 PM CDT [employer] ([facility]) Comment: Consistent with abstinence from nicotine-containing products [...] ?? Test developed and characteristics determined by [employer]. See Compliance Statement B: [email or web address]/CS Performed By: [facility] [address] [place] [id number] Binder Stripper Hand: Valerie Mast MD 3-Hydroxy Cotinine <2 ng/mL 2019 10:08 PM CDT [employer] [facility]) Cotinine <2 ng/mL 05/18/2020 10:08 PM CDT [employer] [facility]) Blood BLOOD SPECIMEN / Unknown Lab Venipuncture / Unknown 05/14/2020 10:18 AM CDT 05/14/2020 10:57 AM CDT Glenny Martin MD LAB - CHEMISTRY ORDERABLES [facility] ([facility]) [address] [place] [address], [facility] * ALCOHOL ETHYL BLOOD (05/14/2020 10:18 AM CDT) Pathologist [facility] Interpretation Ethanol None Detected None Detected mg/dL 05/14/2020 11:41 AM CDT [facility] Comment:Ethanol levels less than 10 mg/dL are resulted as None detected . Blood BLOOD SPECIMEN / Unknown Lab Venipuncture / Unknown 05/14/2020 10:18 AM CDT 05/14/2020 10:55 AM CDT Glenny Martin MD LAB - CHEMISTRY ORDERABLES Performing Organization Address [facility] Co de Phone Number [facility] [address] [place] [phone], [facility] [phone] * SYPHILIS ANTIBODY CASCADING REFLEX (05/14/2020 10:18 AM CDT) [facility] Treponema pallidum Antibody Non-react bianca Non-react bianca 05/14/2020 11:47 AM CDT [facility] Comment: No Laboratory evidence of syphilis infection. ?? Note: ??Circulating antibodies may be low or undetectable in early infection. ??If recent exposure is suspected, re-draw sample in 2-4 weeks and repeat testing. Blood BLOOD SPECIMEN / Unknown Lab Venipuncture / Unknown 05/14/2020 10:18 AM CDT 05/14/2020 10:55 AM CDT Glenny Martin MD LAB - SEROLOGY ORDERABLES Performing Organization Address [facility]/ZIP Co de Phone Number [facility] [address] [place] [phone], [place] [phone] * (ABNORMAL) HEMOGLOBIN A1C (05/14/2020 10:18 AM CDT) [facility] Hemoglobin A1c 7.7(H) 4.4 - 6.3 % 05/14/2020 3:37 PM CDT [facility] Estimated Average Glucose 174 mg/dL 05/14/2020 3:37 PM CDT [facility] Comment: HbA1c Interpretation: Treatment target values recommended by ADA and other clinical organizations should be used to evaluate metabolic control in patients. Treatment Target Values: Normal : < 5.7% Pre-diabetes: 5.7-6.4% Diabetes: Equal to or greater than 6.5% Reference: [place] [employer] Standards of Care in Diabetes -2014 In patients 70 years and older consider HbA1c target range of 7.0-7.5% Reference: ??Diabetes Mellitus in Older People: Position Statement on behalf of the International Association of Gerontology and Geriatrics (IAGG), the Diabetes Working Alliance Party for Older People (EDWPOP), and the International Task Force of Experts in Diabetes. ??Hermelindo Remy, et al. J [place] [employer]. 2012 Test results diagnostic of diabetes should be repeated for confirmation. The Sebia Capillary 2 assay for the measurement of HbA1c is a National Glycohemoglobin Standardization Program (NGSP)certified method. Blood BLOOD SPECIMEN / Unknown Lab Venipuncture / Unknown 05/14/2020 10:18 AM CDT 05/14/2020 10:55 AM CDT Glenny Martin MD LAB - CHEMISTRY ORDERABLES Performing Organization Address City/State/[facility] Co de Phone Number [facility] [address] [address], [facility] [phone] * (ABNORMAL) MADIHA-MORRIS VIRUS ANTIBODY TO VCA IGG (05/14/2020 10:18 AM CDT) [facility] Madiha-Morris Virus Antibody IgG Viral Capsid Antigen 115.0(H) 0.0 - 21.9 U/mL 05/16/2020 5:10 PM CDT [facility] [place] ([facility]) Comment: INTERPRETIVE INFORMATION: Madiha-Morris Virus Antibody to ?Viral Capsid Antigen, IgG ??17.9 U/mL or less.......Not Detected ??18.0-21.9 U/mL..........Indeterminate - Repeat testing in ?10-14 days may be helpful. ??22.0 U/mL or greater....Detected Performed By: [facility] [address] [place] [address] Binder Stripper Hand: Valerie Mast MD Blood BLOOD SPECIMEN / Unknown Lab Venipuncture / Unknown 05/14/2020 10:18 AM CDT 05/14/2020 10:55 AM CDT Glenny Martin MD LAB - CHEMISTRY ORDERABLES [employer] [facility]) [address] [place] [address], [facility] * CYTOMEGALOVIRUS ANTIBODY IGG BLOOD (05/14/2020 10:18 AM CDT) Cytomegalovirus Antibody IgG >10.00 U/mL 05/16/2020 6:28 PM CDT [facility] [place] ([facility]) Comment: INTERPRETIVE INFORMATION: Cytomegalovirus Antibody, IgG ??0.59 [...] laboratory at the same time. Performed By: [facility] [address] [place] [address] Binder Stripper Hand: Valerie Mast MD Blood BLOOD SPECIMEN / Unknown Lab Venipuncture / Unknown 05/14/2020 10:18 AM CDT 05/14/2020 10:55 AM CDT Glenny Martin MD LAB - CHEMISTRY ORDERABLES [facility] ([facility]) [address] * HEPATITIS C ANTIBODY (05/14/2020 10:18 AM CDT) Hepatitis C Antibody Non-react bianca Non-reac tive 05/14/2020 11:49 AM CDT [facility] Comment:Hepatitis C Antibody screen indicates no serologic [...] LAB - CHEMISTRY ORDERABLES Performing Organization Address City/[facility]/ZIP Co de Phone Number [facility] [address] [place] [address] [phone] * (ABNORMAL) HEPATITIS B SURFACE ANTIBODY (05/14/2020 10:18 AM CDT) Hepatitis B Virus Surface Antibody Reactive( A) Non-react bianca 05/14/2020 11:47 AM CDT [facility] Comment: > 12 mIU/mL Hepatitis B surface Antibody (HBsAb). Reactive for HBsAb - individual is considered immune to Hepatitis B Virus infection. Hepatitis B Surface Antibody Quantitative 72.7(H) <8.0 mIU/mL 05/14/2020 11:47 AM CDT [facility] Comment: Hepatitis B Surface Antibody Numeric Result Interpretation: ? Nonreactive: ?<8.0 mIU/mL ? Indeterminate: ??8.0 - 12.0 mIU/mL ? Reactive: ?>12.0 mIU/mL ? Blood BLOOD SPECIMEN / Unknown Lab Venipuncture / Unknown 05/14/2020 10:18 AM CDT 05/14/2020 10:55 AM CDT Glenny Martin MD LAB - CHEMISTRY ORDERABLES Performing Organization Address City/[facility]/ZIP Co de Phone Number [address] [address], [place] [phone] * HEPATITIS B CORE ANTIBODY (05/14/2020 10:18 AM CDT) HBc Antibody Total Non-reacti ve Non-reacti ve 05/14/2020 11:47 AM CDT [facility] Blood BLOOD SPECIMEN / Unknown Lab Venipuncture / Unknown 05/14/2020 10:18 AM CDT 05/14/2020 10:55 AM CDT Glenny Martin MD LAB - CHEMISTRY ORDERABLES Performing Organization Address [facility] Co de Phone Number [address] [address], [place] [phone] * HEPATITIS B SURFACE ANTIGEN W RFLX CONFIRMATION (05/14/2020 10:18 AM CDT) Hepatitis B Virus Surface Antigen Non-reacti ve Non-reacti ve 05/14/2020 11:47 AM CDT [facility] Blood BLOOD SPECIMEN / Unknown Lab Venipuncture / Unknown 05/14/2020 10:18 AM CDT 05/14/2020 10:55 AM CDT Glenny Martin MD LAB - CHEMISTRY ORDERABLES Performing Organization Address [facility] Co de Phone Number [address] [address], [place] [phone] * (ABNORMAL) LIPID PROFILE (05/14/2020 10:18 AM CDT) [facility] Cholesterol Total 137 <200 mg/dL 05/14/2020 11:41 AM [facility] HDL 28(L) >40 mg/dL 05/14/2020 11:41 AM [facility] Comment: ATP III Classification of HDL Cholesterol: ? <40 mg/dL: ??Considered a major risk factor. ? >60 mg/dL: ??Considered a negative risk factor. ? LDL Calculated 70 <100 mg/dL 05/14/2020 11:41 AM [facility] Comment: ATP III Classification of LDL Cholesterol: ?<100 mg/dL: ??Optimal ? 100 - 129 mg/dL: ??Near Optimal/Above Optimal ? 130 - 159 mg/dL: ??Borderline High ? 160 - 189 mg/dL: ??High ?>190 mg/dL: ??Very High ? Triglycerides 196(H) <150 mg/dL 05/14/2020 11:41 AM [facility] Comment: ATP III Classification of Triglycerides: ?<150 mg/dL: ??Normal ? 150 - 199 mg/dL: ??Borderline High ? 200 - 400 mg/dL: ??High ?>500 mg/dL: ??Very High Blood BLOOD SPECIMEN / Unknown Lab Venipuncture / Unknown 05/14/2020 10:18 AM CDT 05/14/2020 10:55 AM CDT Glenny Martin MD LAB - CHEMISTRY ORDERABLES Performing Organization Address [facility]/State/ZIP Co de Phone Number [facility] [address] [place] [address], [place] [phone] * (ABNORMAL) PHOSPHORUS BLOOD (05/14/2020 10:18 AM CDT) Phosphorus 5.1(H) 2.3 - 4.7 mg/dL 05/14/2020 11:41 AM [facility] Blood BLOOD SPECIMEN / Unknown Lab Venipuncture / Unknown 05/14/2020 10:18 AM CDT 05/14/2020 10:55 AM CDT Glenny Martin MD LAB - CHEMISTRY ORDERABLES Performing Organization Address City/State/[facility] Co de Phone Number [facility] [address] [place] [address], [facility] [phone] * (ABNORMAL) COMPREHENSIVE METABOLIC PANEL (05/14/2020 10:18 AM CDT) BUN 65(H) 7 - 26 mg/dL 05/14/2020 11:41 AM [facility] Creatinine 5.6(H) 0.6 - 1.2 mg/dL 05/14/2020 11:41 AM [facility] Sodium 142 136 - 145 mmol/L 05/14/2020 11:41 AM [facility] Potassium 3.7 3.5 - 4.5 mmol/L 05/14/2020 11:41 AM [facility] Chloride 101 98 - 107 mmol/L 05/14/2020 11:41 AM [facility] CO2 28 22 - 29 mmol/L 05/14/2020 11:41 AM [facility] Glucose 162(H) 70 - 115 mg/dL 05/14/2020 11:41 AM [facility] Calcium 9.0 8.4 - 10.2 mg/dL 05/14/2020 11:41 AM [facility] Protein Total 6.9 6.0 - 8.3 g/dL 05/14/2020 11:41 AM [facility] Albumin 3.7 3.4 - 5.0 g/dL 05/14/2020 11:41 AM [facility] Bilirubin Total 0.7 0.2 - 1.2 mg/dL 05/14/2020 11:41 AM [facility] Alkaline Phosphatase 140 40 - 150 Units/L 05/14/2020 11:41 AM [facility] ALT 43 0 - 55 Units/L 05/14/2020 11:41 AM [facility] AST 29 5 - 34 Units/L 05/14/2020 11:41 AM [facility] Anion Gap 17 8 - 18 05/14/2020 11:41 AM [facility] BUN/Creatinine Ratio 12 7 - 23 05/14/2020 11:41 AM [facility] Osmolality Calculated 316(H) 270 - 300 mOsm/kg 05/14/2020 11:41 AM [facility] Albumin/Globulin Ratio 1.2 1.1 - 2.3 05/14/2020 11:41 AM [facility] eGFR 11(L) >60 mL/min/1.7 3 m2 05/14/2020 11:41 AM [facility] Blood BLOOD SPECIMEN / Unknown Lab Venipuncture / Unknown 05/14/2020 10:18 AM CDT 05/14/2020 10:55 AM T Glenny Martin MD LAB - CHEMISTRY ORDERABLES [facility] [address] [place] [address], [facility] [phone] * (ABNORMAL) CBC W AUTO DIFFERENTIAL (05/14/2020 10:18 AM T) WBC 5.0 3.5 - 10.5 10? 3 /uL 05/14/2020 11:03 AM [facility] RBC 3.45(L) 4.30 - 5.70 10? 6 /uL 05/14/2020 11:03 AM [facility] Hemoglobin 10.7(L) 13.5 - 17.5 g/dL 05/14/2020 11:03 AM [facility] Hematocrit 31.1(L) 39.0 - 50.0 % 05/14/2020 11:03 AM [facility] MCV 90.1 81.0 - 97.0 fL 05/14/2020 11:03 AM [facility] MCH 31.0 28.0 - 34.0 pg 05/14/2020 11:03 AM [facility] MCHC 34.4 32.0 - 36.0 g/dL 05/14/2020 11:03 AM [facility] Platelet Count 232 150 - 400 10? 3 /uL 05/14/2020 11:03 AM [facility] RDW-SD 42.4 36.0 - 50.0 fL 05/14/2020 11:03 AM [facility] RDW-CV 12.9 11.2 - 14.8 % 05/14/2020 11:03 AM [facility] MPV 9.8 9.3 - 12.8 fL 05/14/2020 11:03 AM [facility] nRBC Absolute 0.00 0 10? 3 /uL 05/14/2020 11:03 AM [facility] nRBC Auto 0.0 0 /100 WBC 05/14/2020 11:03 AM [facility] Neutrophils % 54.8 35.0 - 70.0 % 05/14/2020 11:03 AM [facility] Lymphocytes % 31.2 19.7 - 55.1 % 05/14/2020 11:03 AM [facility] Monocytes % 9.4 3.0 - 15.0 % 05/14/2020 11:03 AM [facility] Eosinophils % 3.8 0.0 - 6.0 % 05/14/2020 11:03 AM [facility] Basophil % 0.6 0.0 - 1.5 % 05/14/2020 11:03 AM [facility] Neutrophils Absolute 2.7 1.6 - 7.0 10? 3 /uL 05/14/2020 11:03 AM [facility] Lymphocyte Absolute 1.6 0.8 - 2.9 10? 3 /uL 05/14/2020 11:03 AM [facility] Monocytes Absolute 0.47 0.14 - 0.66 10? 3 /uL 05/14/2020 11:03 AM [facility] Eosinophils Absolute 0.19 0.00 - 0.45 10? 3 /uL 05/14/2020 11:03 AM [facility] Basophils Absolute 0.03 0.00 - 0.06 10? 3 /uL 05/14/2020 11:03 AM [facility] Immature Granulocytes % 0.2 0.0 - 1.0 % 05/14/2020 11:03 AM CDT [facility] Blood BLOOD SPECIMEN / Unknown Lab Venipuncture / Unknown 05/14/2020 10:18 AM CDT 05/14/2020 10:55 AM CDT Glenny Martin MD LAB - HEMATOLOG Y ORDERABLES [facility] [address] [place] [address], [place] [phone] * BLOOD TYPE ABO+ RH PANEL (05/14/2020 10:18 AM CDT) ABO Rh A POS 05/14/2020 12:11 PM CDT [facility] Blood BLOOD SPECIMEN / Unknown Lab Venipuncture / Unknown 05/14/2020 10:18 AM CDT 05/14/2020 11:29 AM CDT Glenny Martin MD LAB - BLOOD BAN K ORDERABLES Performing Organization Address City/[facility]/ZIP Co de Phone Number [facility] [address] [place] [address], [place] [phone] * TYPE + SCREEN PANEL (05/14/2020 10:06 AM CDT) Antibody Screen NEG 0 12:17 PM CDT [facility] ABO Rh A POS 05/14/2020 12:17 PM CDT [facility] Blood Bank BLOOD SPECIMEN / Unknown Lab Venipuncture / Unknown 05/14/2020 10:06 AM CDT 05/14/2020 11:30 AM CDT Glenny Martin MD LAB - BLOOD BAN K ORDERABLES Performing Organization Address City/[facility]/ZIP Co de Phone Number [facility] [address] [place] [address], [place] [phone] * XR PANOREX (05/14/2020 7:35 AM CDT) Anatomical Region Laterality Modality Head Radiographic Toma ging 05/14/2020 7:56 AM CDT Impressions 05/15/2020 7:51 AM CDT IMPRESSION: No periapical abscess identified. Dictated by Kristie Bee MD (radiology equipment servicer). Dr. CONRAD Champion MD have personally reviewed [...] abscess identified. Dictated by Kristie Bee MD (radiology equipment servicer). Dr. CONRAD Champion MD have personally reviewed [...] The heart size is normal. Dictated by Krisite Bee MD (radiology equipment servicer). Dr. CONRAD Champion MD have personally reviewed [...] normal. Dictated by Kristie Bee MD (radiology equipment servicer). I, Dr. CONRAD GONZALES MD have personally [...] transplant documented in this encounter Care Teams Mine Engineering Supervisor Relationship Specialty Start Date End Date Aditya Castro Update Information PCP - General 03/06/19 documented as of this encounter
--- OUTSIDE RECORDS SUMMARY | 2024-09-07 23:24 | XMS_ITS | Encounter Summary ---
Author Organization [facility] Address [address] [place] [address] Phone Care Team Providers Care Occupational Therapy Technician Name Role Phone Unavailable Primary Care Provider Unavailabl e Reason for Visit * Reason Comments Med Refill Encounter Details Date Type Department Care Team (Late st Contact Info) Description 01/25/2019 Refill [facility] [address] [facility] 1 [place] [address] Leandro Reyes MD [address] [address] Social History Tobacco Use Types [...]
--- OUTSIDE RECORDS SUMMARY | 2024-09-07 23:24 | XMS_ITS | Clinical Summary ---
Author Organization [facility] Address [address] [place] [address] Phone Care Team Providers Care Plate Stacker Hand Name Role Phone Unavailable Primary Care [...] daily 0 12/27/2017 Active Cholecalciferol (VITAMIN D3) 38307 units capsule 1 tab by mouth once [...]
--- OUTSIDE RECORDS SUMMARY | 2024-09-07 23:24 | XMS_ITS | Encounter Summary ---
Author Organization [facility] Address [address] [facility] [place] [address] Care Team Providers Care Office Cashier Name Role Phone Jhonatan Bellamy MD Primary Care Provider [phone] Encounter Details Date Type Department Care Team (Latest Contact Info) Description 03/25/2015 5:00 PM CDT - 03/25/2015 11:59 PM CDT Hospital Encounter [facility] [address] [place] [address] Yamilet Valerio PA [address] [place] [address] Discharge Disposition: Home or Self [...] Region Laterality Modality Pelvis, Lower Extremity Radiogra [facility] 03/25/2015 8:09 PM CDT [...] unspecified documented in this encounter Care Teams Office Cashier Relationship Specialty Start Date End Date Jhonatan Bellamy MD [address] [place], [place] [id number] PCP - General Family Medicine 03/25/15 03/05/19 documented as of this encounter
--- OUTSIDE RECORDS SUMMARY | 2024-09-07 23:24 | XMS_ITS | Encounter Summary ---
Author Organization [facility] Address [address], [place] [address] Phone Care Team Providers Care Blower Mechanic Name Role Phone Unavailable Primary Care Provider Unavailabl e Reason for Visit * Reason Comments Med Refill Encounter Details Date Type Department Care Team (Late st Contact Info) Description 07/04/2019 Refill [facility] [address] [address] Leandro Reyes MD [address] [address] Social History Tobacco Use Types [...]
--- OUTSIDE RECORDS SUMMARY | 2024-09-07 23:24 | XMS_ITS | Encounter Summary ---
Author Organization [facility] Address [address] [place] [address] Phone Care Team Providers Care County Commissioner Name Role Phone Unavailable Primary Care Provider Unavailabl e Encounter Details Date Type Department Care Team (Late st Contact Info) Description 09/18/2019 Telephone [facility] [address] [facility] 1 [place] [address] Leandro Reyes MD [address] [facility] 1 [place] [address] Social History Tobacco Use Types [...] Sep 25 @ 10 am at his [facility]. documented in this encounter Plan of Treatment Not on file documented as of this encounter Visit Diagnoses Not on filedocumented in this encounter
--- OUTSIDE RECORDS SUMMARY | 2024-09-07 23:24 | XMS_ITS | Encounter Summary ---
Author Organization [facility] Address [address], [place] [address] Phone Care Team Providers Care Trim Crew Supervisor Name Role Phone Unavailable Primary Care Provider Unavailabl e Reason for Visit * Reason Comments CKD Encounter Details Date Type Department Care Team (Latest Contact Info) Description 10/29/2019 10:20 AM CDT Office Visit [facility] [address] [place] [address] Ricardo Reyes MD [address] [address] Stage 5 chronic kidney disease [...] mg by mouth. ??? Cholecalciferol (VITAMIN D3) 92072 units capsule 1 tab by mouth once [...] this visit: Stage 5 chronic kidney disease (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) Obstructive sleep apnea Anemia in chronic kidney disease documented in this encounter
--- OUTSIDE RECORDS SUMMARY | 2024-09-07 23:24 | XMS_ITS | Encounter Summary ---
Author Organization [facility] Address [address] [place] [address] Care Team Providers Care Chainstitch Sewing Machine Operator Name Role Phone Matthew Aditya Ellison Primary Care Provider Unavailab le Reason for Visit * Reason Comments Gout pain-low back, hips, knees, shoulders, hands and feet Encounter Details Date Type Department Care Team (Late st Contact Info) Description 04/29/2019 12:30 PM CDT Office Visit [facility] [address] [place] [address] Judah Norton MD [address] [address] Gout, unspecified cause, unspecified chronicity, unspecified site [...] desires. Carlton Delarosa MD, FACP, FAAP, MACR Online Program Coordinator and Pediatric Rheumatology Professor of Internal Medicine,Pediatrics, and Molecular Immunology [facility] documented in this encounter Plan of Treatment Not on file documented as of this encounter Visit Diagnoses Diagnosis Gout, unspecified cause, unspecified chronicity, unspecified site- Primary documented in this encounter Care Teams Chainstitch Sewing Machine Operator Relationship Specialty Start Date End Date Aditya Castro Update Information PCP - General 03/06/19 documented as of this encounter
--- OUTSIDE RECORDS SUMMARY | 2024-09-07 23:24 | XMS_ITS | Encounter Summary ---
Author Organization [facility] Address [address], [place] [address] Phone Care Team Providers Care Fundraising Assistant Name Role Phone Unavailable Primary Care Provider Unavailabl e Reason for Visit * Reason Comments Med Refill Encounter Details Date Type Department Care Team (Late st Contact Info) Description 02/24/2020 Refill [facility] [address] [address] Leandro Reyes MD [address] [address] Social History Tobacco Use Types [...]
--- OUTSIDE RECORDS SUMMARY | 2024-09-07 23:24 | XMS_ITS | Encounter Summary ---
Author Organization [facility] Address [address], [place] [address] Phone Care Team Providers Care Data Modeling Architect Name Role Phone Unavailable Primary Care Provider Unavailabl e Reason for Visit * Reason Comments Med Refill Encounter Details Date Type Department Care Team (Late st Contact Info) Description 10/08/2019 Refill [facility] [address] [address] Leandro Reyes MD [address] [address] Social History Tobacco Use Types [...]
--- OUTSIDE RECORDS SUMMARY | 2024-09-07 23:24 | XMS_ITS | Encounter Summary ---
Author Organization [facility] Address [address] [address] Phone Care Team Providers Care Hide Handler Name Role Phone Unavailable Primary Care Provider Unavailabl e Reason for Visit * Reason Comments Med Refill Encounter Details Date Type Department Care Team (Late st Contact Info) Description 12/25/2020 Refill [facility] [address] [place] [address] Leandro Reyes MD [address] [address] Social History Tobacco Use Types [...]
--- OUTSIDE RECORDS SUMMARY | 2024-09-07 23:24 | XMS_ITS | Encounter Summary ---
Author Organization [facility] Address [address] [facility] [place] [address] Care Team Providers Care Nurse Emergency Room Name Role Phone Aditya Castro Primary Care Provider Unavail le Encounter Details Date Type Department Care Team (Latest Contact Info) Description 04/26/2019 12:20 PM CDT - 04/26/2019 12:53 PM CDT Hospital Encounter [facility] [address] [place] [phone] Judah Norton MD [address] [facility] 2L [place] [id number] Discharge Disposition: Home or Self Care Social [...] fluticasone propionate (FLONASE) 50 MCG/ACT nasal spray Hurt 1 spray into each nostril once daily [...] test strip 04/17/2019 vitamin D, ergocalciferol, (DRISDOL) 85326 units capsule Take 50,000 Units by mouth [...] IGG/IGA (CCP) (04/26/2019 12:42 PM CDT) Pathologist [facility] CCP Antibodies IgG/IgA 17 0 - 19 units 04/29/2019 9:06 PM CDT [facility] ([facility]) Comment: ?Negative ? <20 ?Weak positive ?20 - 39 ?Moderate positive ??40 - 59 ?Strong positive ?>59 Blood BLOOD SPECIMEN / Unknown Lab Venipuncture / Unknown 04/26/2019 12:42 PM CDT 04/26/2019 1:18 PM CDT Narrative [facility] ([facility]) - 04/29/2019 9:06 PM CDT Performed at: ??[address] ??[id number] Wire Repairer: Con Grimaldo MD, Phone: ??[phone] Judah Norton MD LAB - SEROLOGY ORDER ROVERTO Performing Organization Address City/[facility]/ZIP Co de Phone Number [facility] ([facility]) [address] [phone] * RHEUMATOID FACTOR BLOOD QUANTITATIVE (04/26/2019 12:42 PM CDT) [facility] Rheumatoid Factor <15 <30 IU/mL 04/26/2019 2:34 PM CDT [facility] Blood BLOOD SPECIMEN / Unknown Lab Venipuncture / Unknown 04/26/2019 12:42 PM CDT 04/26/2019 1:18 PM CDT Judah Norton MD LAB - CHEMISTRY SUSANNAH LEOEN [address] [phone] * SS-B (SJOGREN'S) ANTIBODY (04/26/2019 12:42 PM CDT) [facility] SS-B LA Antibody 2.8 0.0 - 19.9 Units 04/30/2019 9:45 AM CDT [facility] Comment: JOSE ENRIQUE Antibody Numeric Result Interpretation: ?<20.0 Units: ??Negative ?20.0 - 39.0 Units: ??Weakly Positive ?>39.0 Units: ??Positive ? Blood BLOOD SPECIMEN / Unknown Lab Venipuncture / Unknown 04/26/2019 12:42 PM CDT 04/26/2019 1:19 PM CDT Judah Norton MD LAB - CHEMISTRY SUSANNAH LEONE Performing Organization Address [facility] Co de Phone Number [address] [phone] * SS-A (SJOGREN'S) ANTIBODY (04/26/2019 12:42 PM CDT) [facility] SS-A (Ro) Antibody 2.7 0.0 - 19.9 Units 04/30/2019 9:45 AM CDT [facility] Comment: JOSE ENRIQUE Antibody Numeric Result Interpretation: ?<20.0 Units: ??Negative ?20.0 - 39.0 Units: ??Weakly Positive ?>39.0 Units: ??Positive ? Blood BLOOD SPECIMEN / Unknown Lab Venipuncture / Unknown 04/26/2019 12:42 PM CDT 04/26/2019 1:19 PM CDT Judah Norton MD LAB - CHEMISTRY SUSANNAH LEONE Performing Organization Address [facility]/ZIP Co de Phone Number [facility] [address] [phone] * SHAWN BLOOD SCREEN W/REFLEX TITER (04/26/2019 12:42 PM CDT) [facility] Negative 04/27/2019 3:07 PM CDT [facility] ([facility]) Comment: ? Negative ?? <1:80 ? Borderline ??1:80 ? Positive ?? >1:80 Blood BLOOD SPECIMEN / Unknown Lab Venipuncture / Unknown 04/26/2019 12:42 PM CDT 04/26/2019 1:18 PM CDT Narrative [facility] ([facility]) - 04/27/2019 3:07 PM CDT Performed at: ??01 - [facility] [address] [place], [place] ??[id number] Wire Repairer: Mehdi Del Angel PhD, Phone: ??[phone] Judah Norton MD LAB - CHEMISTRY SUSANNAH LEONE Performing Organization Address [facility] Co de Phone Number [facility] ([facility]) [address] [place] [address] * (ABNORMAL) VITAMIN D 25-HYDROXY (04/26/2019 12:42 PM CDT) Pathologist [facility] Vitamin D, 25 Hydroxy 15.1(L) See comment: ng/mL 04/26/2019 2:25 PM CDT [facility] Comment: The recommendations for [...] Norton MD LAB - CHEMISTRY SUSANNAH LEONE [facility] Organization Address City/State/ZIP Co de Phone Number [address] [phone] * (ABNORMAL) URINALYSIS W/MICROSCOPIC NO CULTURE (04/26/2019 12:42 PM CDT) Color UA Yellow Straw, Yellow, Colorless 04/26/2019 1:31 PM CDT [facility] Clarity UA Slt Cloudy Clear, Slt Cloudy 04/26/2019 1:31 PM T [facility] Specific [place] UA 1.013 1.005 - 1.030 04/26/2019 1:31 PM CDT [facility] pH UA 5.0 5.0 - 8.0 pH 04/26/2019 1:31 PM T [facility] Protein UA 2+(A) Negative mg/dL 04/26/2019 1:31 PM T [facility] Glucose UA 1+(A) Negative mg/dL 04/26/2019 1:31 PM CDT [facility] Ketone UA Negative Negative mg/dL 04/26/2019 1:31 PM T [facility] Bilirubin UA Negative Negative mg/dL 04/26/2019 1:31 PM CDT [facility] Blood UA Negative Negative 04/26/2019 1:31 PM T [facility] Nitrite UA Negative Negative 04/26/2019 1:31 PM T [facility] Leukocyte Esterase Negative Negative 04/26/2019 1:31 PM T [facility] Urobilinogen UA Negative Negative mg/dL 04/26/2019 1:31 PM T [facility] RBC UA 0-2 None Seen, 0-2, 3-5 /HPF 04/26/2019 1:31 PM T [facility] WBC UA 0-5 None Seen, 0-5 /HPF 04/26/2019 1:31 PM T [facility] Squamous Epithelial Cells UA 0-2 None Seen, 0-2 /HPF 04/26/2019 1:31 PM T [facility] Mucus UA 1+ None, 1+ /LPF 04/26/2019 1:31 PM T [facility] Hyaline Casts UA 11-20(A) None Seen, 0-2 /LPF 04/26/2019 1:31 PM CDT [facility] Urine URINE SPECIMEN OBTAINED BY CLEAN CATCH PROCEDURE / Unknown Collection / Unknown 04/26/2019 12:42 PM CDT 04/26/2019 1:18 PM CDT Narrative [facility] - 04/26/2019 1:31 PM CDT Judah Norton MD LAB - URINALYSIS ORD ERABLES Performing Organization Address City/State/[facility] Co de Phone Number [facility] [address] [place] [address] * (ABNORMAL) ERYTHROCYTE SEDIMENTATION RATE (04/26/2019 12:42 PM CDT) Erythrocyte Sedimentation Rate Westergren 34(H) 0 - 20 MM/HR 04/26/2019 1:31 PM CDT [facility] Blood BLOOD SPECIMEN / Unknown Lab Venipuncture / Unknown 04/26/2019 12:42 PM CDT 04/26/2019 1:19 PM CDT Judah Norton MD LAB - HEMATOLOGY ORD ERABLES [facility] [address] [place] [address] * C-REACTIVE PROTEIN (04/26/2019 12:42 PM CDT) [facility] C-Reactive Protein <0.5 <=0.5 mg/dL 04/26/2019 2:21 PM T [facility] Blood BLOOD SPECIMEN / Unknown Lab Venipuncture / Unknown 04/26/2019 12:42 PM CDT 04/26/2019 1:19 PM CDT Judah Norton MD LAB - CHEMISTRY SUSANNAH LEONE [address] [phone] * (ABNORMAL) COMPREHENSIVE METABOLIC PANEL (04/26/2019 12:42 PM CDT) [facility] BUN 72(H) 7 - 26 mg/dL 04/26/2019 1:43 PM [facility] Creatinine 4.9(H) 0.6 - 1.2 mg/dL 04/26/2019 1:43 PM [facility] Sodium 138 136 - 145 mmol/L 04/26/2019 1:43 PM [facility] Potassium 4.1 3.5 - 4.5 mmol/L 04/26/2019 1:43 PM [facility] Chloride 101 98 - 107 mmol/L 04/26/2019 1:43 PM [facility] CO2 22 22 - 29 mmol/L 04/26/2019 1:43 PM [facility] Glucose 227(H) 70 - 115 mg/dL 04/26/2019 1:43 PM [facility] Calcium 9.2 8.4 - 10.2 mg/dL 04/26/2019 1:43 PM [facility] Protein Total 6.9 6.0 - 8.3 g/dL 04/26/2019 1:43 PM [facility] Albumin 3.6 3.4 - 5.0 g/dL 04/26/2019 1:43 PM [facility] Bilirubin Total 0.4 0.2 - 1.2 mg/dL 04/26/2019 1:43 PM [facility] Alkaline Phosphatase 83 40 - 150 Units/L 04/26/2019 1:43 PM [facility] ALT 32 0 - 55 Units/L 04/26/2019 1:43 PM [facility] AST 30 5 - 34 Units/L 04/26/2019 1:43 PM [facility] Anion Gap 19(H) 8 - 18 04/26/2019 1:43 PM [facility] BUN/Creatinine Ratio 15 7 - 23 04/26/2019 1:43 PM [facility] Osmolality Calculated 314(H) 270 - 300 mOsm/kg 04/26/2019 1:43 PM [facility] Albumin/Globulin Ratio 1.1 1.1 - 2.3 04/26/2019 1:43 PM [facility] eGFR 13(L) >60 mL/min/1.7 3 m2 04/26/2019 1:43 PM [facility] Blood BLOOD SPECIMEN / Unknown Lab Venipuncture / Unknown 04/26/2019 12:42 PM CDT 04/26/2019 1:19 PM T Judah Norton MD LAB - CHEMISTRY SUSANNAH LEONE [facility] Organization Address City/State/ZIP Co de Phone Number [address] [phone] * (ABNORMAL) CBC WITH DIFFERENTIAL (04/26/2019 12:42 PM CDT) WBC 4.9 3.5 - 10.5 10? 3 /uL 04/26/2019 1:22 PM [facility] RBC 3.40(L) 4.30 - 5.70 10? 6 /uL 04/26/2019 1:22 PM [facility] Hemoglobin 10.0(L) 13.5 - 17.5 g/dL 04/26/2019 1:22 PM [facility] Hematocrit 29.5(L) 39.0 - 50.0 % 04/26/2019 1:22 PM [facility] MCV 86.8 81.0 - 97.0 fL 04/26/2019 1:22 PM [facility] MCH 29.4 28.0 - 34.0 pg 04/26/2019 1:22 PM [facility] MCHC 33.9 32.0 - 36.0 g/dL 04/26/2019 1:22 PM [facility] Platelet Count 243 150 - 400 10? 3 /uL 04/26/2019 1:22 PM [facility] RDW-SD 39.9 36.0 - 50.0 fL 04/26/2019 1:22 PM [facility] RDW-CV 12.5 11.2 - 14.8 % 04/26/2019 1:22 PM [facility] MPV 9.7 9.3 - 12.8 fL 04/26/2019 1:22 PM [facility] nRBC Absolute 0.00 0 10? 3 /uL 04/26/2019 1:22 PM [facility] nRBC Auto 0.0 0 /100 WBC 04/26/2019 1:22 PM [facility] Neutrophils % 57.8 35.0 - 70.0 % 04/26/2019 1:22 PM [facility] Lymphocytes % 27.1 19.7 - 55.1 % 04/26/2019 1:22 PM [facility] Monocytes % 11.2 3.0 - 15.0 % 04/26/2019 1:22 PM [facility] Eosinophils % 2.9 0.0 - 6.0 % 04/26/2019 1:22 PM [facility] Basophil % 0.6 0.0 - 1.5 % 04/26/2019 1:22 PM [facility] Neutrophils Absolute 2.8 1.6 - 7.0 10? 3 /uL 04/26/2019 1:22 PM [facility] Lymphocyte Absolute 1.3 0.8 - 2.9 10? 3 /uL 04/26/2019 1:22 PM [facility] Monocytes Absolute 0.55 0.14 - 0.66 10? 3 /uL 04/26/2019 1:22 PM [facility] Eosinophils Absolute 0.14 0.00 - 0.45 10? 3 /uL 04/26/2019 1:22 PM CDT [facility] Basophils Absolute 0.03 0.00 - 0.06 10? 3 /uL 04/26/2019 1:22 PM CDT [facility] Immature Granulocytes % 0.4 0.0 - 1.0 % 04/26/2019 1:22 PM CDT [facility] Blood BLOOD SPECIMEN / Unknown Lab Venipuncture / Unknown 04/26/2019 12:42 PM CDT 04/26/2019 1:19 PM CDT Judah Norton MD LAB - HEMATOLOGY ORD ERASANDRA [address] [phone] * (ABNORMAL) CK BLOOD (04/26/2019 12:42 PM CDT) CK Total 280(H) 30 - 200 Units/L 04/26/2019 1:43 PM CDT [facility] Blood BLOOD SPECIMEN / Unknown Lab Venipuncture / Unknown 04/26/2019 12:42 PM CDT 04/26/2019 1:19 PM CDT Judah Norton MD LAB - CHEMISTRY SUSANNAH LEONE [address] [phone] * (ABNORMAL) LDH BLOOD (04/26/2019 12:42 PM CDT) [facility] Total 268(H) 125 - 243 Units/L 04/26/2019 1:43 PM CDT [facility] Blood BLOOD SPECIMEN / Unknown Lab Venipuncture / Unknown 04/26/2019 12:42 PM CDT 04/26/2019 1:19 PM CDT Judah Norton MD LAB - CHEMISTRY SUSANNAH LEONE [address] [phone] * ALDOLASE (04/26/2019 12:42 PM CDT) Aldolase 6.9 3.3 - 10.3 U/L 04/29/2019 3:08 PM CDT [facility] ([facility]) Blood BLOOD SPECIMEN / Unknown Lab Venipuncture / Unknown 04/26/2019 12:42 PM CDT 04/26/2019 1:18 PM CDT Narrative [facility] ([facility]) - 04/29/2019 3:08 PM CDT Performed at: ??01 - [facility] [address] [place], [place] ??[id number] Wire Repairer: Mehdi Del Angel PhD, Phone: ??[phone] Judah Norton MD LAB - CHEMISTRY SUSANNAH LEONE Performing Organization Address City/[facility]/ZIP Co de Phone Number [facility] [address] [place] [address] * URIC ACID BLOOD (04/26/2019 12:42 PM CDT) Uric Acid 4.4 2.6 - 7.2 mg/dL 04/26/2019 2:13 PM CDT [facility] Blood BLOOD SPECIMEN / Unknown Lab Venipuncture / Unknown 04/26/2019 12:42 PM CDT 04/26/2019 1:19 PM CDT Judah Norton MD LAB - CHEMISTRY SUSANNAH LEONE [facility] [address] [phone] documented in this encounter Visit Diagnoses Diagnosis Gout, unspecified cause, unspecified chronicity, unspecified site Sicca, unspecified type (HCC) documented in this encounter Care Teams Nurse Emergency Room Relationship Specialty Start Date End Date Aditya Castro Update Information PCP - General 03/06/19 documented as of this encounter
--- OUTSIDE RECORDS SUMMARY | 2024-09-07 23:24 | XMS_ITS | Encounter Summary ---
Author Organization [facility] Address [address], [place] [address] Phone Care Team Providers Care Pharmacognosist Name Role Phone Unavailable Primary Care Provider Unavailabl e Reason for Visit * Reason Comments Med Refill Encounter Details Date Type Department Care Team (Late st Contact Info) Description 11/14/2019 Refill [facility] [address] [address] Leandro Reyes MD [address] [address] Social History Tobacco Use Types [...]
--- OUTSIDE RECORDS SUMMARY | 2024-09-07 23:24 | XMS_ITS | Encounter Summary ---
Author Organization [facility] Address [address] [facility] [place] [address] Care Team Providers Care Engineer And Geologist Name Role Phone Aditya Castro Primary Care Provider Unavailab le Reason for Visit * Reason Comments Kidney Transplant Evaluation Encounter Details Date Type Department Care Team (Late st Contact Info) Description 02/04/2020 Telephone [facility] [address] [place] [address] Gracie Chambers, RN Kidney Transplant [...] mention of PHTN. Stated it wasdone at [facility]. He also said that he was due [...] an echo some time in 2019 at [facility]. Will request before proceeding with referral. documented in this encounter Plan of Treatment Not on file documented as of this encounter Visit Diagnoses Not on filedocumented in this encounter Care Teams Engineer And Geologist Relationship Specialty Start Date End Date Aditya Castro Update Information PCP - General 03/06/19 documented as of this encounter
--- OUTSIDE RECORDS SUMMARY | 2024-09-07 23:24 | XMS_ITS | Encounter Summary ---
Author Organization [facility] Address [address], [place] [address] Phone Care Team Providers Care Product Marketing Manager Name Role Phone Unavailable Primary Care Provider Unavailabl e Reason for Visit * Reason Comments Med Refill Encounter Details Date Type Department Care Team (Late st Contact Info) Description 12/19/2020 Refill [facility] [address] [place] [phone] Leandro Reyes MD [address] [address] Social History Tobacco Use Types [...]
--- OUTSIDE RECORDS SUMMARY | 2024-09-07 23:24 | XMS_ITS | Encounter Summary ---
Author Organization [facility] Address [address] [place] [address] Phone Care Team Providers Care Varnish Remover Name Role Phone Unavailable Primary Care Provider Unavailabl e Reason for Visit * Reason Onset Date Comments Med Refill 01/25/2019 Encounter Details Date Type Department Care Team (Late st Contact Info) Description 01/25/2019 Refill [facility] [address] [facility] [place] [address] Anabel Kingsley RN Social History Tobacco Use [...]
--- OUTSIDE RECORDS SUMMARY | 2024-09-07 23:24 | XMS_ITS | Encounter Summary ---
Author Organization [facility] Address [address] [place] [address] Phone Care Team Providers Care Glass Products Inspector Name Role Phone Unavailable Primary Care Provider Unavailabl e Reason for Visit * Reason Onset Date Comments Med Refill 02/18/2019 Encounter Details Date Type Department Care Team (Late st Contact Info) Description 02/18/2019 Refill [facility] [address] [facility] [place] [address] Anabel Kingsley RN Social History Tobacco Use [...]
--- OUTSIDE RECORDS SUMMARY | 2024-09-07 23:24 | XMS_ITS | Encounter Summary ---
Author Organization [facility] Address [address], [place] [address] Phone Care Team Providers Care Archery Equipment Hay Sorter Name Role Phone Unavailable Primary Care Provider Unavailabl e Reason for Visit * Reason Comments Med Refill Encounter Details Date Type Department Care Team (Late st Contact Info) Description 11/19/2020 Refill [facility] [address] [place] [address] Leandro Reyes MD [address] [address] Social History Tobacco Use [...]
--- OUTSIDE RECORDS SUMMARY | 2024-09-07 23:24 | XMS_ITS | Encounter Summary ---
Author Organization [facility] Address [address], [place] [address] Phone Care Team Providers Care Curator Of Education Name Role Phone Unavailable Primary Care Provider Unavailabl e Reason for Visit * Reason Comments CKD Encounter Details Date Type Department Care Team (Late st Contact Info) Description 04/02/2019 1:40 PM CDT Office Visit [facility] [address] [address] Leandro Reyes MD [address] [facility] [address] [place] [address] Social History Tobacco Use Types [...]
--- OUTSIDE RECORDS SUMMARY | 2024-09-07 23:24 | XMS_ITS | Encounter Summary ---
Author Organization [facility] Address [address] [facility] [place] [address] Care Team Providers Care Pickle Pumper Name Role Phone Aditya Castro Primary Care Provider Unavailab le Encounter Details Date Type Department Care Team (Late st Contact Info) Description 04/27/2019 Orders Only [facility] [address] [place] [address] Judah Norton MD [address] [place] [phone] Social History Tobacco Use Types Packs/Day Years [...] approximately 13% higher for people identified as -[place]. eGFR by MDRD 14(L) > OR = [...] L[address] [facility] Comment: Test Performed at: [facility] [address] [place], [place] ??[phone] ANA REYES DO,MPH 04/27/2019 9:17 AM CDT 04/27/2019 9:19 AM CDT Judah Norton MD LAB - URINE CHEMISTR Y ORDERABLES Performing Organization Address City/State/[facility] Co de Phone Number [facility] [address] [place] [address] documented in this encounter Visit Diagnoses Not on filedocumented in this encounter Care Teams Pickle Pumper Relationship Specialty Start Date End Date Aditya Castro Update Information PCP - General 03/06/19 documented as of this encounter
--- OUTSIDE RECORDS SUMMARY | 2024-09-07 23:24 | XMS_ITS | Encounter Summary ---
Author Organization [facility] Address [address] [facility] [place] [address] Care Team Providers Care Dynamic Balancer Name Role Phone Matthew Aditya Ellison Primary Care Provider Unavailab le Reason for Visit * Reason Onset Date Comments Med Question 06/25/2019 Encounter Details Date Type Department Care Team (Late st Contact Info) Description 06/25/2019 Telephone [facility] [address] [place] [address] Finn Kramer MD [address] [place] [address] Med Question Social History Tobacco Use Types [...] pt he is asking that we call [facility] at [phone] and talk to them about the compression stockings. I called and spoke with Kashif at [facility] and gave clarification the the mmHg I let them know that they should Be the 20-30mmHg . He understood and will get them ready for pt. Anali Connelly NDARY SET UP MAN * Telephone Encounter - Theodore Huerta - 06/25/2019 10:40 AM CST Pt called saying patient pharmacy just needs clarification of a number on the prescription for compression socks. Please Advise. NDARY SET UP MAN documented in this encounter Plan of Treatment Not on file documented as of this encounter Visit Diagnoses Not on filedocumented in this encounter Care Teams Dynamic Balancer Relationship Specialty Start Date End Date Aditya Castro Update Information PCP - General 03/06/19 documented as of this encounter
--- OUTSIDE RECORDS SUMMARY | 2024-09-07 23:24 | XMS_ITS ---
Author Organization [facility] Address [address] 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
--- OUTSIDE RECORDS SUMMARY | 2024-09-07 23:24 | XMS_ITS | Encounter Summary ---
Author Organization [facility] Address [address], [place] [address] Phone Care Team Providers Care Translator Deaf Name Role Phone Unavailable Primary Care Provider Unavailabl e Reason for Visit * Reason Comments Med Refill Encounter Details Date Type Department Care Team (Late st Contact Info) Description 02/13/2019 Refill [facility] [address] [address] Leandro Reyes MD [address] [address] Social History Tobacco Use Types [...]
--- OUTSIDE RECORDS SUMMARY | 2024-09-07 23:24 | XMS_ITS | Encounter Summary ---
Author Organization [facility] Address [address] [facility] [place] [address] Care Team Providers Care Gastroenterology Teacher Name Role Phone Aditya Castro Primary Care Provider Unavailab le Reason for Visit * Reason Comments Refill Request Encounter Details Date Type Department Care Team (Late st Contact Info) Description 10/11/2019 Refill [facility] [address] [place] [address] Girish Vasques MD [address] [facility] [address] [place] [address] Refill Request Social History Tobacco Use Types [...] [place] 04/11/19 No follow up Anali Connelly EN PRINTER documented in this encounter Plan of Treatment Not on file documented as of this encounter Visit Diagnoses Diagnosis Other seborrheic dermatitis documented in this encounter Care Teams Gastroenterology Teacher Relationship Specialty Start Date End Date Aditya Castro Update Information PCP - General 03/06/19 documented as of this encounter
--- OUTSIDE RECORDS SUMMARY | 2024-09-07 23:24 | XMS_ITS | Encounter Summary ---
Author Organization [facility] Address [address], [place] [address] Phone Care Team Providers Care Professor Criminal Justice Name Role Phone Unavailable Primary Care Provider Unavailabl e Reason for Visit * Reason Comments Med Refill Encounter Details Date Type Department Care Team (Late st Contact Info) Description 12/23/2021 Refill [facility] [address] [place] [address] Arabella Lo, AIRPORT ENGINEER [address] [address] Social History Tobacco Use Types Packs/Day Years [...]
--- OUTSIDE RECORDS SUMMARY | 2024-09-07 23:24 | XMS_ITS | Encounter Summary ---
Author Organization [facility] Address [address] [facility] [place] [address] Care Team Providers Care Journeyman Millwright Name Role Phone CastroNancy josueAditya K Primary Care Provider Unavailab le Reason for Visit * Reason Comments Establish Care New patient, FBSC- s cattered moles, dry skin forehead, side of nose(irritating), legs, hands. Dark areas on lower legs, no symptoms Encounter Details Date Type Department Care Team (Late st Contact Info) Description 04/11/2019 1:20 PM CDT Office Visit [facility] [address] [place] [address] Finn Kramer MD [address] [place] [address] Other seborrheic dermatitis (Primary Dx); Venous stasis [...] stronger ones than this. We often recommend [employer] [facility] [employer] [facility] [place] or online at [email or web address] They can also be obtained from [facility] CARE INSTRUCTIONS Try to rest and raise [...] device. Many people find good deals on [employer] device: [address] [place] [address] P: [phone] F: [phone] M-F 8:30am-5:30pm Sat 10am-3pm [address] [address] P: [phone] F: [phone] M-F 8:30am-5:30pm Closed Monday [place] [address] [place] [place] [address] P: [phone] F: [phone] M-F 8:30am-5:30pm Closed Monday documented in this [...] x yrs. OTC tx. Itching occ. PE: Bright scaly patches b/l eyebrows, NLF, post auricular. [...] trunk documented in this encounter Care Teams Journeyman Millwright Relationship Specialty Start Date End Date Aditya Castro Update Information PCP - General 03/06/19 documented as of this encounter
--- OUTSIDE RECORDS SUMMARY | 2024-09-07 23:24 | XMS_ITS | Encounter Summary ---
Author Organization [facility] Address [address] [place] [address] Phone Care Team Providers Care Brim Flexer Name Role Phone Unavailable Primary Care Provider Unavailabl e Encounter Details Date Type Department Care Team (Late st Contact Info) Description 11/08/2018 1:00 PM CDT Office Visit [facility] [address] [facility] [address] [place] [address] Arabella Lo NP [address] [address] Chronic kidney disease stage 4 [...] discussed this at a past hospitalization at [place]. Patient is to notify office if any changes in health take place prior to follow up with bread dough mixer. This includes any changes in urinary habits, shortness of breath, loss of appetite, weight gain or loss, or any edema. Total time spent: 55 minutes documented in this encounter Plan of Treatment Not on file documented as of this encounter Visit Diagnoses Diagnosis Chronic kidney disease stage 4 (CMS-HCC)- Primary documented in this encounter
--- OUTSIDE RECORDS SUMMARY | 2024-09-07 23:24 | XMS_ITS | Encounter Summary ---
Author Organization [facility] Address [address], [place] [address] Phone Care Team Providers Care Microelectronics Technician Name Role Phone Unavailable Primary Care Provider Unavailabl e Reason for Visit * Reason Comments CKD Encounter Details Date Type Department Care Team (Latest Contact Info) Description 10/01/2019 2:40 PM DIRECTOR OF TESTING Office Visit [facility] [address] [place] [address] Ricardo Banuelos MD [address] [address] Stage 5 chronic kidney disease [...] Comments Blood Pressure 165/71 10/01/2019 1:51 PM DIRECTOR OF TESTING Pulse 57 10/01/2019 1:51 PM DIRECTOR OF TESTING Temperature - - Respiratory Rate - - Oxygen Saturation - - Inhaled Oxygen Concentration - - Weight 116 kg (256 lb) 10/01/2019 1:51 PM DIRECTOR OF TESTING Height 177.8 cm (5' 10 ) 10/01/2019 1:51 PM DIRECTOR OF TESTING Body Mass Index 36.73 10/01/2019 1:51 PM DIRECTOR OF TESTING documented in this encounter Progress Notes * Ricardo Banuelos MD - 10/01/2019 2:40 PM CST Patient: Juvenal Daigle Birthdate: 1970 PCP: No primary care provider on file. Aditya Castro Reason for visit: Visit Date: 10/01/2019 CHIEF COMPLAINT CKD INTERIM HISTORY Juvenal Diagle is a 49 y.o. male presenting with [...] mg by mouth. ??? Cholecalciferol (VITAMIN D3) 97898 units capsule 1 tab by mouth once [...] this visit: Stage 5 chronic kidney disease ([facility]) - Referral to Interventional Nephrology; Future - CBC (includes Platelets / NO Differential); Future - Renal Function Panel (RFP); Future Type 2 diabetes mellitus with diabetic nephropathy ([facility]) Secondary hyperparathyroidism ([facility]) - PTH Intact w/o Calcium, Serum; Future Anemia in chronic kidney disease - CBC (includes Platelets / NO Differential); Future - Iron and TIBC, Serum; Future - Ferritin, Serum; Future Obstructive sleep apnea Hypertensive end stage renal disease ([facility]) Other orders - furosemide (LASIX) 80 MG [...] Lab Routine Stage 5 chronic kidney disease ([facility]) Anemia in chronic kidney disease Expected: 03/31/2020, Expires: 03/31/2020 PTH Intact w/o Calcium, Serum Lab Routine Secondary hyperparathyroidism ([facility]) Expected: 03/31/2020, Expires: 03/31/2020 Renal Function Panel (RFP) Lab Routine Stage 5 chronic kidney disease ([facility]) Expected: 03/31/2020, Expires: 10/01/2020 Iron and TIBC, Serum Lab Routine Anemia in chronic kidney disease 1 Occurrences starting 10/01/2019 until 03/31/2020 Ferritin, Serum Lab Routine Anemia in chronic kidney disease 1 Occurrences starting 10/01/2019 until 03/31/2020 documented as of this encounter Visit Diagnoses Diagnosis Stage 5 chronic kidney disease ([facility])- Primary Type 2 diabetes mellitus with diabetic nephropathy ([facility]) Secondary hyperparathyroidism ([facility]) Anemia in chronic kidney disease Obstructive sleep apnea Hypertensive end stage renal disease ([facility]) documented in this encounter
--- OUTSIDE RECORDS SUMMARY | 2024-09-07 23:28 | XMS_ITS | Encounter Summary ---
Author Organization [facility] Address [address] [place] [address] Care Team Providers Care Acid Pump Operator Name Role Phone Aditya Castro MD Primary Care Provider [phone] Encounter Details Date Type Department Care Team [...] filedocumented in this encounter Care Teams Acid Pump Operator Relationship Specialty Start Date End Date Aditya Castro MD PCP - General Student in an Organized Health Care Education/Training Program 09/11/18 documented as of this encounter
--- OUTSIDE RECORDS SUMMARY | 2024-09-07 23:28 | XMS_ITS | Encounter Summary ---
Author Organization [facility] Address [address] [place] [address] Care Team Providers Care Glass Engraver Name Role Phone Aditya Castro MD Primary Care Provider [phone] Encounter Details Date Type Department Care Team [...] filedocumented in this encounter Care Teams Glass Engraver Relationship Specialty Start Date End Date Aditya Castro MD PCP - General Student in an Organized Health Care Education/Training Program 09/11/18 documented as of this encounter
--- OUTSIDE RECORDS SUMMARY | 2024-09-07 23:28 | XMS_ITS | Encounter Summary ---
Author Organization [facility] Address [address] [place] [address] Care Team Providers Care Scheduler Conveyor Name Role Phone Aditya Castro MD Primary Care Provider [phone] Encounter Details Date Type Department Care Team [...] on filedocumented in this encounter Care Teams Scheduler Conveyor Relationship Specialty Start Date End Date Aditya Castro MD PCP - General Student in an Organized Health Care Education/Training Program 09/11/18 documented as of this encounter
--- OUTSIDE RECORDS SUMMARY | 2024-09-07 23:28 | XMS_ITS | Encounter Summary ---
Author Organization [facility] Address [address] [place] [address] Care Team Providers Care Veneer Jointer Name Role Phone Aditya Castro MD Primary Care Provider [phone] Encounter Details Date Type Department Care Team [...] on filedocumented in this encounter Care Teams Veneer Jointer Relationship Specialty Start Date End Date Aditya Castro MD PCP - General Student in an Organized Health Care Education/Training Program 09/11/18 documented as of this encounter
--- OUTSIDE RECORDS SUMMARY | 2024-09-07 23:28 | XMS_ITS | Encounter Summary ---
Author Organization [facility] Address [address] [place] [address] Care Team Providers Care Facility Attendant Name Role Phone Aditya Castro MD Primary Care Provider [phone] Encounter Details Date Type Department Care Team [...] on filedocumented in this encounter Care Teams Facility Attendant Relationship Specialty Start Date End Date Aditya Castro MD PCP - General Student in an Organized Health Care Education/Training Program 09/11/18 documented as of this encounter
--- OUTSIDE RECORDS SUMMARY | 2024-09-07 23:28 | XMS_ITS | Encounter Summary ---
Author Organization [facility] Address [address] [place] [address] Care Team Providers Care Hot Saw Operator Name Role Phone Aditya Castro MD Primary Care Provider [phone] Encounter Details Date Type Department Care Team [...] filedocumented in this encounter Care Teams Hot Saw Operator Relationship Specialty Start Date End Date Aditya Castro MD PCP - General Student in an Organized Health Care Education/Training Program 09/11/18 documented as of this encounter
--- OUTSIDE RECORDS SUMMARY | 2024-09-07 23:28 | XMS_ITS | Encounter Summary ---
Author Organization [facility] Address [address] [place] [address] Care Team Providers Care Dispatcher Radio Name Role Phone Aditya Castro MD Primary Care Provider [phone] Encounter Details Date Type Department Care Team [...] on filedocumented in this encounter Care Teams Dispatcher Radio Relationship Specialty Start Date End Date Aditya Castro MD PCP - General Student in an Organized Health Care Education/Training Program 09/11/18 documented as of this encounter
--- OUTSIDE RECORDS SUMMARY | 2024-09-07 23:28 | XMS_ITS | Encounter Summary ---
Author Organization [facility] [employer] [facility] Address [address] [place] [address] Care Team Providers Care Fly Worker Name Role Phone Aditya Castro MD Primary Care Provider [phone] Encounter Details Date Type Department Care Team (Late st Contact Info) Description 02/29/2024 Orders Only [facility] Oncology and Hematology - [place] [address] [place] [address] Josefina Rodríguez FNP [address] [facility] [address] [place] [address] Social History Tobacco Use Types [...] on filedocumented in this encounter Care Teams Fly Worker Relationship Specialty Start Date End Date Aditya Castro MD PCP - General Student in an Organized Health Care Education/Training Program 09/11/18 documented as of this encounter
--- OUTSIDE RECORDS SUMMARY | 2024-09-07 23:28 | XMS_ITS | Encounter Summary ---
Author Organization [facility] Address [address] [place] [address] Care Team Providers Care Band Tier Name Role Phone Aditya Castro MD Primary Care Provider [phone] Encounter Details Date Type Department Care Team [...] on filedocumented in this encounter Care Teams Band Tier Relationship Specialty Start Date End Date Aditya Castro MD PCP - General Student in an Organized Health Care Education/Training Program 09/11/18 documented as of this encounter
--- OUTSIDE RECORDS SUMMARY | 2024-09-07 23:28 | XMS_ITS | Encounter Summary ---
Author Organization [facility] Address [address] [place] [address] Care Team Providers Care Call Center Assistant Name Role Phone Aditya Castro MD Primary Care Provider [phone] Encounter Details Date Type Department Care Team [...] on filedocumented in this encounter Care Teams Call Center Assistant Relationship Specialty Start Date End Date Aditya Castro MD PCP - General Student in an Organized Health Care Education/Training Program 09/11/18 documented as of this encounter
--- OUTSIDE RECORDS SUMMARY | 2024-09-07 23:28 | XMS_ITS | Encounter Summary ---
Author Organization [facility] [employer] [facility] Address [address] [place] [address] Care Team Providers Care Scales Inspector Name Role Phone Aditya Castro MD Primary Care Provider [phone] Reason for Visit * Reason Comments Med Refill Encounter Details Date Type Department Care Team (Late st Contact Info) Description 07/15/[address] [facility] Oncology and Hematology - [place] [address] [facility] [address] [place] [address] Fernando Schmid MD [address] [facility] [address] [place] [address] Social History Tobacco Use Types [...] on filedocumented in this encounter Care Teams Scales Inspector Relationship Specialty Start Date End Date Aditya Castro MD PCP - General Student in an Organized Health Care Education/Training Program 09/11/18 documented as of this encounter
--- OUTSIDE RECORDS SUMMARY | 2024-09-07 23:28 | XMS_ITS | Encounter Summary ---
Author Organization [facility] Address [address] [place] [address] Care Team Providers Care Nuclear Plant Equipment Operator Name Role Phone Aditya Castro MD Primary Care Provider [phone] Encounter Details Date Type Department Care Team [...] on filedocumented in this encounter Care Teams Nuclear Plant Equipment Operator Relationship Specialty Start Date End Date Aditya Castro MD PCP - General Student in an Organized Health Care Education/Training Program 09/11/18 documented as of this encounter
--- OUTSIDE RECORDS SUMMARY | 2024-09-07 23:28 | XMS_ITS | Encounter Summary ---
Author Organization [facility] Address [address] [place] [address] Care Team Providers Care Media Marketing Manager Name Role Phone Aditya Castro MD Primary Care Provider [phone] Encounter Details Date Type Department Care Team [...] on filedocumented in this encounter Care Teams Media Marketing Manager Relationship Specialty Start Date End Date Aditya Castro MD PCP - General Student in an Organized Health Care Education/Training Program 09/11/18 documented as of this encounter
--- OUTSIDE RECORDS SUMMARY | 2024-09-07 23:28 | XMS_ITS | Clinical Summary ---
Author Organization [facility] Address [address] [place] [address] Care Team Providers Care Cardroom Hand Name Role Phone Aditya Castro MD Primary Care Provider [phone] Allergies Active Allergy Reactions Criticality Noted Date Comments Allopurinol Shortness of Breath/Wheezing,Othe r (See Comments) High 07/31/2019 Shuts my kidneys down per patient. Chlorhexidine Other (See Comments) High 06/29/2022 Skin peels all over and becomes tender Iodinated Contrast Media Rash High 07/10/2017 Ticagrelor Rash High 05/04/2017 Medications isosorbide mononitrate (IMDUR) 30 mg Extended Release 24 hour tablet Take 30 mg by mouth daily medical physics teacher. Active clopidogrel (PLAVIX) 75 mg Tablet Take [...] Take 50,000 Units by mouth. Active Insulin [place], Disposable, (TRUEPLUS PEN NEEDLE) 31 gauge x [...] (06/29/2022): Added automatically from request for surgery [id number] Right upper quadrant pain 09/24/2020 Pre-transplant evaluation for kidney transplant 03/24/2020 Overview (06/29/2022): Images from the original note were not included. Juvenal Daigle 1970 Referring Felt Hat Flanging Operator: Leandro Reyes Dialysis Info: Type: PD Time: 160 days (11/05/2019) Blood Type: A Body mass index is 37.8 kg/m??. ALERTS Voting Machine Repairer: Vashti Lizama NP Past Medical History: Diagnosis Date ? ? Anemia ? ? Arthritis ? ? Arthropathy osteo. back and knees see Dr. Notron ? ? CAD (coronary artery disease) ? ? Community acquired pneumonia 2017 [facility] hospitalized with double pneumonia ? ? Congestive heart failure ? ? Coronary artery disease ? ? Diabetes mellitus type 1 teens dx when he was 13. Insulin since he was dx. Insulin pump currently with dexacom. Vashti Lizama NP is regional director. ? ? DM (diabetes mellitus) TYPE 1 ? ? DVT (deep venous thrombosis) 2017 [facility]. ? ? ESRD on peritoneal dialysis ? ? Gout ? ? History of blood transfusion 2017 during admission for MA ? ? HLD (hyperlipidemia) ? ? HTN (hypertension) ? ? Hypercholesteremia 5 years on med ? ? Hypertension 30's on medications. ? ? Kidney disease ? ? Myocardial infarction 2017 [facility]. Stent x1 placed. ? ? Neuropathy feet [...] file Gets together: Not on file Attends scientologist service: Not on file Active member of [...] 07/02/2020: Committee Discussion Details: Pt brought to [facility] to discuss his cardiac workup. Team [...] of safety concerns regarding immunosuppressants. ?? Plan: bag shop worker to provide supportive services as needed. Patient appears to be a reasonable candidate for transplant from a psychosocial perspective. ?? -Post transplant arrangement forms are needed prior to being listed. Psychiatric Consult Recommended: No ?? Transplant Buyer Intern: Radha Roper LCSW ?? RD:05/14/2020 BMI= 40.0, [...] cm (5' 10 ) 06/29/2022 6:00 PM CAMPAIGN ANALYST Body Mass Index 37.74 06/29/2022 6:00 PM CAMPAIGN ANALYST Plan of Treatment Health Maintenance Due Date [...] T d or Tdap) 10/21/2029 10/22/2019 Insurance [facility] [id number] [facility] Advance Directives For more information, please contact: [phone] * Full Code (Latest Code Status on File) Date Activated Date Inactivated Comments 06/29/2022 2:49 PM 07/08/2022 4:30 PM Care Teams Cardroom Hand Relationship Specialty Start Date End Date Aditya Castro MD PCP - General Student in an Organized Health Care Education/Training Program 09/11/18
--- OUTSIDE RECORDS SUMMARY | 2024-09-07 23:28 | XMS_ITS | Encounter Summary ---
Author Organization [facility] Address [address] [place] [address] Care Team Providers Care Animal Care Assistant Name Role Phone Aditya Castro MD Primary Care Provider [phone] Encounter Details Date Type Department Care Team [...] on filedocumented in this encounter Care Teams Animal Care Assistant Relationship Specialty Start Date End Date Aditya Castro MD PCP - General Student in an Organized Health Care Education/Training Program 09/11/18 documented as of this encounter
--- OUTSIDE RECORDS SUMMARY | 2024-09-07 23:28 | XMS_ITS | Encounter Summary ---
Author Organization [facility] Address [address] [place] [address] Care Team Providers Care Home Help Aide Name Role Phone Aditya Castro MD Primary Care Provider [phone] Encounter Details Date Type Department Care Team [...] filedocumented in this encounter Care Teams Home Help Aide Relationship Specialty Start Date End Date Aditya Castro MD PCP - General Student in an Organized Health Care Education/Training Program 09/11/18 documented as of this encounter
--- OUTSIDE RECORDS SUMMARY | 2024-09-07 23:29 | XMS_ITS | Encounter Summary ---
Author Organization [facility] [employer] [facility] Address [address] [place] [address] Care Team Providers Care Ui Developer Designer Name Role Phone Aditya Castro MD Primary Care Provider [phone] Reason for Referral * Radiology Services (Routine) - Closed Specialty Diagnoses / Procedures Referred By Contac t Referred To Contact Diagnoses History of deep vein thrombosis Procedures US VENOUS DOPPLER LEG BILATERAL Fernando Schmid MD [address] [place] [address] Phone: tel: fax: [place] [phone] Referral ID Status Reason Start Date Expiration Date V isits Requested Visits Authorized [id number] Closed [facility] 09/21/2022 10/22/2023 1 1 LE MACHINE OPERATOR Reason for Visit * Reason Comments Establish Care Encounter Details Date Type Department Care Team (Late st Contact Info) Description 09/21/2022 11:45 AM NIPPLE MACHINE OPERATOR Office Visit [facility] Oncology and Hematology [facility] [address] [address] Fernando Schmid MD [address] [place] [address] History of deep vein thrombosis [...] Coronavirus/COVID-19? No / Unsure 09/21/2022 11:32 AM NIPPLE MACHINE OPERATOR documented as of this encounter Last Filed Vital Signs Vital Sign Reading Time Taken Comments Blood Pressure 131/50 09/21/2022 11:43 AM NIPPLE MACHINE OPERATOR Pulse 70 09/21/2022 11:43 AM NIPPLE MACHINE OPERATOR Temperature 36.7 ??C (98 ??F) 09/21/2022 11:43 AM NIPPLE MACHINE OPERATOR Respiratory Rate 16 09/21/2022 11:43 AM NIPPLE MACHINE OPERATOR Oxygen Saturation 95% 09/21/2022 11:43 AM NIPPLE MACHINE OPERATOR Inhaled Oxygen Concentration - - Weight 124 kg (273 lb 4.8 oz) 09/21/2022 11:43 A M NIPPLE MACHINE OPERATOR Height - - Body Mass Index 39.21 06/29/2022 6:00 PM NIPPLE MACHINE OPERATOR documented in this encounter Progress Notes [...] 2 times daily. 30 Tablet 0 peg 610-xddttrorunxe-druwawes 1-0.2-0.2 % solution Administer 1 Drop in both eyes 4 times daily. Insulin [place], Disposable, (TRUEPLUS PEN NEEDLE) 31 gauge x [...] tablet Take 30 mg by mouth daily product representative. clopidogrel (PLAVIX) 75 mg Tablet Take 75 [...] no frequency; no hesitancy; no hematuria RESEARCH GREENHOUSE SUPERVISOR: Musculosketetal: Patient did not mention bone [...] and aspirin. He will follow-up with a photoengraving apprentice. End-stage renal disease. Patient is on peritoneal [...] of the total time spent counseling patient [id number]. CC:?Aditya Castro MD LE MACHINE OPERATOR documented in this encounter Plan [...] embolism documented in this encounter Care Teams Ui Developer Designer Relationship Specialty Start Date End Date Aditya Castro MD PCP - General Student in an Organized Health Care Education/Training Program 09/11/18 documented as of this encounter
--- OUTSIDE RECORDS SUMMARY | 2024-09-07 23:29 | XMS_ITS | Encounter Summary ---
Author Organization [facility] Address [address] [place] [address] Care Team Providers Care Locker Attendant Name Role Phone Aditya Castro MD Primary Care Provider [phone] Reason for Visit * Reason Comments Follow Up 32 Month f/u Procrit Encounter Details Date Type Department Care Team (Late st Contact Info) Description 07/31/2019 8:45 AM ALLOCATIONS CLERK Office Visit [facility] Oncology and Hematology - [place] [address] [facility] [address] [place] [address] Fernando Schmid MD [address] [facility] [address] [place] [address] Anemia of chronic renal failure, [...] Comments Blood Pressure 120/56 07/31/2019 9:00 AM ALLOCATIONS CLERK Pulse 66 07/31/2019 9:00 AM ALLOCATIONS CLERK Temperature 36.7 ??C (98.1 ??F) 07/31/2019 9:00 AM CS T Respiratory Rate - - Oxygen Saturation 97% 07/31/2019 9:00 AM ALLOCATIONS CLERK Inhaled Oxygen Concentration - - Weight 117.9 kg (260 lb) 07/31/2019 9:00 AM ALLOCATIONS CLERK Height 175.3 cm (5' 9 ) 07/31/2019 9:00 AM ALLOCATIONS CLERK Body Mass Index 38.4 07/31/2019 9:00 AM ALLOCATIONS CLERK documented in this encounter Progress Notes [...] extremity DVT. Resolved. 07/31/2019 Fernando Schmid MD CATIONS CLERK documented in this encounter Plan of [...] Primary documented in this encounter Care Teams Locker Attendant Relationship Specialty Start Date End Date Aditya Castro MD PCP - General Student in an Organized Health Care Education/Training Program 09/11/18 documented as of this encounter
--- OUTSIDE RECORDS SUMMARY | 2024-09-07 23:29 | XMS_ITS | Encounter Summary ---
Author Organization [facility] Address [address] [place] [address] Care Team Providers Care Convalescent Sitter Name Role Phone Aditya Castro MD Primary Care Provider [phone] Reason for Visit * Reason Onset Date Comments Needs Orders Written 07/30/2019 Encounter Details Date Type Department Care Team (Late st Contact Info) Description 07/30/2019 Telephone [facility] Oncology and Hematology - [place] [address] [place] [address] [facility] [address] [place] [address] Fernando Schmid MD [address] [facility] [address] [place] [address] Needs Orders Written Social History [...] to have for insurance approval for procrit. STANT PROFESSOR OF BUSINESS documented in this encounter Plan of Treatment Scheduled Orders Name Type Priority Associated Diagnoses Orde r Schedule FERRITIN Lab Routine Anemia of chronic renal failure, stage 4 (severe) Anemia in stage 4 chronic kidney disease Expected: 07/30/2019, Expires: 07/30/2020 documented as of this encounter Results * TRANSFERRIN RECEPTOR TFR SOLUBLE (08/15/2019) Blood Fernando Schmid MD CHEMISTRY ORDERABLES Final Resu lt Performing Organization Address City/[facility]/ZIP Co de Phone Number NON [facility] * IRON, TIBC, AND PERCENT SATURATION (08/15/2019) Blood Fernando Schmid MD CHEMISTRY ORDERABLES Final Resu lt Performing Organization Address City/[facility]/ZIP Co de Phone Number NON [facility] documented in this encounter Visit Diagnoses Diagnosis Anemia of chronic renal failure, stage 4 (severe)- Primary Anemia in stage 4 chronic kidney disease documented in this encounter Care Teams Convalescent Sitter Relationship Specialty Start Date End Date Aditya Castro MD PCP - General Student in an Organized Health Care Education/Training Program 09/11/18 documented as of this encounter
--- OUTSIDE RECORDS SUMMARY | 2024-09-07 23:29 | XMS_ITS | Encounter Summary ---
Author Organization [facility] Address [address] [place] [address] Care Team Providers Care Occupational Therapist Rehab Manager Name Role Phone Aditya Castro MD Primary Care Provider [phone] Reason for Visit * Reason Onset Date Comments Medication Refill 09/23/2022 Encounter Details Date Type Department Care Team (Late st Contact Info) Description 09/23/2022 Refill [facility] Oncology and Hematology - [place] [address] [facility] [address] [place] [address] Fernando Schmid MD [address] [facility] [address] [place] [address] Social History Tobacco Use [...] Coronavirus/COVID-19? No / Unsure 09/21/2022 11:32 AM HULL OUTFIT SUPERVISOR documented as of this encounter Plan of Treatment Not on file documented as of this encounter Visit Diagnoses Not on filedocumented in this encounter Care Teams Occupational Therapist Rehab Manager Relationship Specialty Start Date End Date Aditya Castro MD PCP - General Student in an Organized Health Care Education/Training Program 09/11/18 documented as of this encounter
--- OUTSIDE RECORDS SUMMARY | 2024-09-07 23:29 | XMS_ITS | Encounter Summary ---
Author Organization [facility] Address [address] [place] [address] Care Team Providers Care Financial Accounting Analyst Name Role Phone Aditya Castro MD Primary Care Provider [phone] Encounter Details Date Type Department Care Team (Late st Contact Info) Description 12/05/2018 Orders Only [facility] Oncology and Hematology - [place] [address] [facility] [address] [place] [address] Fernando Schmid MD [address] [facility] [address] [place] [address] Anemia in stage 4 chronic [...] HEMATOLOGY ORDERABLES Final Res ult NON [facility] documented in this encounter Visit Diagnoses Diagnosis Anemia in stage 4 chronic kidney disease documented in this encounter Care Teams Financial Accounting Analyst Relationship Specialty Start Date End Date Aditya Castro MD PCP - General Student in an Organized Health Care Education/Training Program 09/11/18 documented as of this encounter
--- OUTSIDE RECORDS SUMMARY | 2024-09-07 23:29 | XMS_ITS | Encounter Summary ---
Author Organization [facility] Address [address] [place] [address] Care Team Providers Care Concrete Pavement Installer Name Role Phone Aditya Castro MD Primary Care Provider [phone] Encounter Details Date Type Department Care Team (Late st Contact Info) Description 11/21/2018 Orders Only [facility] Oncology and Hematology - [place] [address] [facility] [address] [place] [address] Fernando Schmid MD [address] [facility] [address] [place] [address] Anemia in stage 4 chronic [...] MD HEMATOLOGY ORDERABLES Final Res ult NON [facility] documented in this encounter Visit Diagnoses Diagnosis Anemia in stage 4 chronic kidney disease documented in this encounter Care Teams Concrete Pavement Installer Relationship Specialty Start Date End Date Aditya Castro MD PCP - General Student in an Organized Health Care Education/Training Program 09/11/18 documented as of this encounter
--- OUTSIDE RECORDS SUMMARY | 2024-09-07 23:29 | XMS_ITS | Encounter Summary ---
Author Organization [facility] [employer] [facility] Address [address] [address] [place] [address] Care Team Providers Care Import Export Coordinator Name Role Phone Aditya Castro MD Primary Care Provider [phone] Encounter Details Date Type Department Care Team (Late st Contact Info) Description 10/18/2019 Orders Only [facility] Oncology and Hematology - [place] [address] [facility] [address] [place] [address] Fernando Schmid MD [address] [facility] [address] [place] [address] Anemia of chronic renal failure, [...] (severe) documented in this encounter Care Teams Import Export Coordinator Relationship Specialty Start Date End Date Aditya Castro MD PCP - General Student in an Organized Health Care Education/Training Program 09/11/18 documented as of this encounter
--- OUTSIDE RECORDS SUMMARY | 2024-09-07 23:29 | XMS_ITS | Encounter Summary ---
Author Organization [facility] Address [address] [place] [address] Care Team Providers Care Precision Structural Metal Fitter Name Role Phone Aditya Castro MD Primary Care Provider [phone] Encounter Details Date Type Department Care Team [...] on filedocumented in this encounter Care Teams Precision Structural Metal Fitter Relationship Specialty Start Date End Date Aditya Castro MD PCP - General Student in an Organized Health Care Education/Training Program 09/11/18 documented as of this encounter
--- OUTSIDE RECORDS SUMMARY | 2024-09-07 23:29 | XMS_ITS | Encounter Summary ---
Author Organization [facility] Address [address] [place] [address] Care Team Providers Care Data Processing Equipment Repairer Name Role Phone Aditya Castro MD Primary Care Provider [phone] Encounter Details Date Type Department Care Team [...] filedocumented in this encounter Care Teams Data Processing Equipment Repairer Relationship Specialty Start Date End Date Aditya Castro MD PCP - General Student in an Organized Health Care Education/Training Program 09/11/18 documented as of this encounter
--- OUTSIDE RECORDS SUMMARY | 2024-09-07 23:29 | XMS_ITS | Encounter Summary ---
Author Organization [facility] Address [address] [place] [address] Care Team Providers Care Foundation Drill Operator Helper Name Role Phone Aditya Castro MD Primary Care Provider [phone] Encounter Details Date Type Department Care Team (Late st Contact Info) Description 03/07/2019 Orders Only [facility] Oncology and Hematology - [place] [address] [facility] [address] [place] [address] Fernando Schmid MD [address] [facility] [address] [place] [address] Anemia in stage 4 chronic [...] MD HEMATOLOGY ORDERABLES Final Res ult NON [facility] documented in this encounter Visit Diagnoses Diagnosis Anemia in stage 4 chronic kidney disease documented in this encounter Care Teams Foundation Drill Operator Helper Relationship Specialty Start Date End Date Aditya Castro MD PCP - General Student in an Organized Health Care Education/Training Program 09/11/18 documented as of this encounter
--- OUTSIDE RECORDS SUMMARY | 2024-09-07 23:29 | XMS_ITS | Encounter Summary ---
Author Organization [facility] Address [address] [place] [address] Care Team Providers Care Heel Lining Paster Name Role Phone Aditya Castro MD Primary Care Provider [phone] Encounter Details Date Type Department Care Team (Latest Contact Info) Description 06/29/2022 2:35 PM PLANT MAINTENANCE MECHANIC - 07/08/2022 1:46 PM PLANT MAINTENANCE MECHANIC Hospital Encounter [facility] Comprehensive Unit [address] [place] [id number] [place] [address] [place] [address] Acute on chronic HFrEF (heart [...] No / Unsure 07/02/2022 12:57 PM PLANT MAINTENANCE MECHANIC documented as of this encounter Last Filed Vital Signs Vital Sign Reading Time Taken Comments Blood Pressure 102/63 07/08/2022 7:25 AM PLANT MAINTENANCE MECHANIC Pulse 72 07/08/2022 7:25 AM PLANT MAINTENANCE MECHANIC Temperature 36.8 ??C (98.3 ??F) 07/08/2022 4:42 AM CS T Respiratory Rate 16 07/08/2022 7:25 AM PLANT MAINTENANCE MECHANIC Oxygen Saturation 98% 07/08/2022 7:25 AM PLANT MAINTENANCE MECHANIC Inhaled Oxygen Concentration - - Weight 116.1 kg (256 lb) 07/08/2022 9:00 AM PLANT MAINTENANCE MECHANIC Height 177.8 cm (5' 10 ) 06/29/2022 6:00 PM PLANT MAINTENANCE MECHANIC Body Mass Index 36.73 06/29/2022 6:00 PM PLANT MAINTENANCE MECHANIC documented in this encounter Discharge Summaries * [...] BEN on CPAP who initially presented to [facility] for n/v and chest pain. Per Pt he had 3 days of generalized weakness, chills, ROONEY, n/v, chest pain relieved by sublingual ntg. His labs were notable for trop 1.0-->1.09-->0.729, BNP 01528. He had a CT CAP showing cholelithiasis [...] as optimal treatment. Pt was transfered to [place] on 06/05. Upon arrival EKG showed sinus [...] appropriate, he was tr ansferred to [facility] for comprehensive rehabilitation on 06/29/22. The patient was admitted to [facility] to undergo intensive inpatient rehabilitation for functional [...] mainly, min LE drsg and foot wear. MEN'S LOCKER ROOM ATTENDANT: min for memory and PS. Goals: progressing well, reaching CGA-SBA; continue to address his medical stability, orthostasis, strengthening, endurance, balance to reach mod I at dc ELOS: 07/09 [facility] PT, OT, MEN'S LOCKER ROOM ATTENDANT, RN. Discharge Destination: home Condition: stable Discharge [...] MD Quantity: 30 Tablet Refills: 0 peg 433-maajlajgdyhm-wurzxpzt 1-0.2-0.2 % solution Administer 1 Drop in [...] here. Take 30 mg by mouth daily belt knife feeder. Refills: 0 CONTINUE taking these medications aspirin 81 mg Tablet, Chewable Commonly known as: JOSEPH CHEWABLE Take 81 mg by mouth daily. Refills: 0 * TRUEplus Pen Needle 31 gauge x 5/16 Needle TRUEplus Pen Needle 31 gauge x 5/16 Refills: 0 Generic drug: Insulin Walbridge (Disposable) * BD Ultra-Fine Short Pen Needle 31 gauge x 5/16 Needle U ONE PEN NEEDLE TO INJ INSULIN SC QID Refills: 1 Generic drug: Insulin Walbridge (Disposable) calcitRIOL 0.25 mcg capsule Commonly known [...] Your Medications These medications were sent to [id number] - [place], [place] - [address] [place] [facility] [phone], [place] [address] atorvastatin 80 mg tablet calcium acetate 667 mg Tablet tablet doxycycline monohydrate 50 mg Capsule metoprolol tartrate 25 mg tablet Please take the prescriptions given to you during your stay and have them filled at any pharmacy. You don't need a prescription for these medications peg 900-ztbzzshgytog-vikcaolu 1-0.2-0.2 % solution Recommended Follow up: PCP, Aditya Lara MD [phone] Cardiology Endocrinology Srinivas Jon MD CC: Aditya Lara MD T MAINTENANCE MECHANIC documented in this encounter Discharge Instructions * Discharge Instructions* Srinivas Jon MD - 07/07/2022 11:00 AM PLANT MAINTENANCE MECHANIC Discharge: home Condition: stable Recommended diet: Renal Diet/Diabetic Diet Recommended activity: activity as tolerated Follow up: PCP, Aditya Lara MD [phone] Cardiology Endocrinology Post Discharge Safety Recommendations No [...] wound clean and dry CONTINUED THERAPY and/or FCI CARE: Home Health - [facility] - . They will call you for your first visit. Physical Therapy Occupational Therapy Speech Therapy DURABLE MEDICAL EQUIPMENT : Your prescription for a walker has been sent to [facility] [phone]. If there are problems please contact them. Your equipment (walker) was provided to you prior to discharge. Activity Status: Activity Assist Needed Screening: Supervision;With stand by assist (07/07/22 0900) Transfers: Modified [place], Supervision, with gait belt, and with walker Upper body dressing: Independent Lower body dressing: Modified [place] Bath: Supervision seated (recommend purchasing shower chair- can order on Tara, Daniatejinder, IPPLEX, Idaniawinifredgeno) [facility] FAX: [phone] [facility] Client Liaison: Carey Lo LMSW T MAINTENANCE MECHANIC T MAINTENANCE MECHANIC T MAINTENANCE MECHANIC T MAINTENANCE MECHANIC T MAINTENANCE MECHANIC T MAINTENANCE MECHANIC T MAINTENANCE MECHANIC documented in this encounter Medications at Time [...] both eyes 4 times daily. 07/07/2022 Insulin Walbridge, Disposable, (TRUEPLUS PEN NEEDLE) 31 gauge x [...] tablet Take 30 mg by mouth daily belt knife feeder. clopidogrel (PLAVIX) 75 mg Tablet Take 75 [...] left with his brother at 1:43pm T MAINTENANCE MECHANIC * Srinivas Jon MD - 07/08/2022 11:02 AM CST REHAB/PMA&R DAILY PROGRESS NOTE Date: 07/08/2022 Time: 11:02 AM Subjective: Slept, No overnight events. No new issues. IM and renal input appreciated. ESRD on PD. Insulin pump per home regimen. Eucerin for dry skin. Completed IP therapy, reached CGA-SBA. Dc home today after therapy. Meds e- scribed. [facility] ordered. Pt is aware. Function status and progress towards rehab goals: PT: ambulated 150' with WWR and CGA/SBA. Denies any dizziness/lightheadedness. OT: CGA mainly, min LE drsg and foot wear. MEN'S LOCKER ROOM ATTENDANT: min for memory and PS. Goals: met, reached CGA-SBA; ELOS: 07/09 [facility] PT, OT, MEN'S LOCKER ROOM ATTENDANT, RN. Review of System: No fever, nausea/vomiting, [...] PA 667 mg at 07/08/22 0730 peg 745-oyxjxwlnwrkt-yqngdezt 1-0.2-0.2 % ophthalmic solution 1 Drop 1 [...] Code: full F/u: PCP, Aditya Lara MD [phone] Cardiology Endocrinology Srinivas Jon MD T MAINTENANCE MECHANIC * Conrad Dumont MD - 07/08/2022 10:06 [...] overnight was 99 ??F. PD management continues. Vfcjm-cy-pmkg glucoses are elevated patient is following endocrine's [...] crucial and indicated. 06/29/2022 - Admission to [facility] - (Admission Data below). DAPT on ASA and Plavix. Pt appears ill. Pt with PD cath and DM pump. Discussed care at length with bedside RN and RESPlead. On going aggressive medical mgt continues to optimize pt for continued success in the comprehensive rehab course. Complex needs are noted. Reviewed extensive records from [facility] and daughter says BIPAP settings. Assessment [...] reflux disease without esophagitis Dystrophia unguium Dysphagia- MEN'S LOCKER ROOM ATTENDANT to assess and follow Cardiogenic shock Anemia [...] PA 667 mg at 07/08/22 0730 peg 333-fgpqmpnidbew-oaqdynhp 1-0.2-0.2 % ophthalmic solution 1 Drop 1 [...] mg every 12 hours (2 times daily) vAni Clifford PA 500 mg at 07/08/22 0730 [...] male who recently has been admitted to [facility] for comprehensive rehabilitation - multiple complex medical issues will impact medical management throughout the acute inpatient rehabilitation process. Pt has a significant medical history including but not limited to CHF- EF 50%, Afib, HTN, CAD, T1DM, ESRD on PD, HLD, GERD, hyperparathyroidism, DDD, OA, gout, BEN on CPAP, who initially presented to [facility] for n/v, onset three days, with associated chest pain, generalized weakness, chills, ROONEY. Symptoms were relieved with sublingual ntg. His labs were notable for trop 1.0-->1.09-->0.729, BNP 70439. He had a CT CAP showing cholelithiasis [...] as optimal treatment. Pt was transfered to [place] on 06/05. Upon arrival EKG showed sinus [...] (most recent): No results found for: HGBA1C, [id number] LIPID panel result (most recent): No results [...] Ayala MD Internal Medicine Director // T MAINTENANCE MECHANIC T MAINTENANCE MECHANIC T MAINTENANCE MECHANIC * Shawn Silva RN - 07/08/2022 6:13 [...] effects oftheir medication Shawn Silva RN T MAINTENANCE MECHANIC * Filomena Sibley RN - 07/07/2022 7:47 PM CST Patient alert and oriented, timeout completed and consent given for CCPD prior to connection. CCPD Connected at 19:30. Dressing changed per protocol no signs and symptoms of infection on exit site. Report given to primary nurse,CCPD approximate end time is 06:00 next morning. T MAINTENANCE MECHANIC * Jasmin Bradley MD - 07/07/2022 5:00 [...] 07/07/2022 1920 Gross per 24 hour Intake 73632 ml Output 1069 ml Net 55277 ml Examination: RRR, CTA Soft, NT , [...] TIBC, FERRITIN, Lab Results Component Value Date [id number] 1,178 06/30/2022 , No results found for: [...] home CCPD regimen and follow his primary skewer up after discharge HLD, CAD, AMI, Acute on [...] up closely with you. JASMIN BRADLEY MD [facility] [phone] T MAINTENANCE MECHANIC * Girish Arreola - 07/07/2022 3:50 PM [...] and for his family. Chaplain Bernabe Arreola Drug Abuse Program Coordinator II Extension:[id number] T MAINTENANCE MECHANIC * Conrad Dumont MD - 07/07/2022 11:45 [...] overnight was 99 ??F. PD management continues. Uuque-nz-amnf glucoses are elevated patient is following endocrine's [...] crucial and indicated. 06/29/2022 - Admission to [facility] - (Admission Data below). DAPT on ASA and Plavix. Pt appears ill. Pt with PD cath and DM pump. Discussed care at length with bedside RN and RESPlead. On going aggressive medical mgt continues to optimize pt for continued success in the comprehensive rehab course. Complex needs are noted. Reviewed extensive records from [facility] and daughter says BIPAP settings. Assessment [...] reflux disease without esophagitis Dystrophia unguium Dysphagia- MEN'S LOCKER ROOM ATTENDANT to assess and follow Cardiogenic shock Anemia [...] PA 667 mg at 07/07/22 0842 peg 519-cploqevxclji-xedngwjx 1-0.2-0.2 % ophthalmic solution 1 Drop 1 [...] male who recently has been admitted to [facility] for comprehensive rehabilitation - multiple complex medical issues will impact medical management throughout the acute inpatient rehabilitation process. Pt has a significant medical history including but not limited to CHF- EF 50%, Afib, HTN, CAD, T1DM, ESRD on PD, HLD, GERD, hyperparathyroidism, DDD, OA, gout, BEN on CPAP, who initially presented to [facility] for n/v, onset three days, with associated chest pain, generalized weakness, chills, ROONEY. Symptoms were relieved with sublingual ntg. His labs were notable for trop 1.0-->1.09-->0.729, BNP 43518. He had a CT CAP showing cholelithiasis [...] as optimal treatment. Pt was transfered to [place] on 06/05. Upon arrival EKG showed sinus [...] (most recent): No results found for: HGBA1C, [id number] LIPID panel result (most recent): No results [...] Ayala MD Internal Medicine Director // T MAINTENANCE MECHANIC T MAINTENANCE MECHANIC T MAINTENANCE MECHANIC * Srinivas Jon MD - 07/07/2022 8:05 AM CST REHAB/PMA&R DAILY PROGRESS NOTE Date: 07/07/2022 Time: 8:05 AM Subjective: Slept, eating ok. Occasional lightheadedness in therapy, improved. IM and renal input appreciated. ESRD on PD. Insulin pump per home regimen. Eucerin for dry skin. Progressing well in therapy, reaching CGA-SBA. Planning dc home on 07/09 with [facility] and supervision. HHC ordered. Pt is aware. Function status and progress towards rehab goals: PT: ambulated 150' with WWR and CGA/SBA. Denies any dizziness/lightheadedness. OT: CGA mainly, min LE drsg and foot wear. MEN'S LOCKER ROOM ATTENDANT: min for memory and PS. Goals: progressing well, reaching CGA-SBA; continue to address his medical stability, orthostasis, strengthening, endurance, balance to reach mod I at dc ELOS: 07/09 [facility] PT, OT, MEN'S LOCKER ROOM ATTENDANT, RN. Review of System: No fever, nausea/vomiting, [...] PA 667 mg at 07/06/22 1706 peg 332-uieejowtejoa-wnzlzgfb 1-0.2-0.2 % ophthalmic solution 1 Drop 1 [...] Code: full F/u: PCP, Aditya Lara MD [phone] Cardiology Endocrinology Srinivas Jon MD T MAINTENANCE MECHANIC * Kamryn Browning RN - 07/06/2022 10:40 [...] and bed alarm.Needs attended t o. T MAINTENANCE MECHANIC * Filomena Sibley RN - 07/06/2022 7:35 PM CST Patient alert and oriented, timeout completed and consent given for CCPD prior to connection. CCPD Connected at 19:15. Dressing changed per protocol no signs and symptoms of infection on exit site. Report given to primary nurse,CCPD approximate end time is 05:40 next morning. T MAINTENANCE MECHANIC * Leonela Lantigua RN - 07/06/2022 6:14 [...] today. See communication note regarding dosing. T MAINTENANCE MECHANIC T MAINTENANCE MECHANIC * Jasmin Bradley MD - 07/06/2022 6:00 [...] TIBC, FERRITIN, Lab Results Component Value Date [id number] 1,178 06/30/2022 , No results found for: [...] up closely with you. JASMIN BRADLEY MD [facility] [phone] T MAINTENANCE MECHANIC * Leonela Lantigua RN - 07/06/2022 5:32 [...] 5.45 units insulin. Current rate 0.8units/hr. T MAINTENANCE MECHANIC T MAINTENANCE MECHANIC * Conrad Dumont MD - 07/06/2022 2:32 [...] overnight was 99 ??F. PD management continues. Mmvus-vt-ejas glucoses are elevated patient is following endocrine's [...] crucial and indicated. 06/29/2022 - Admission to [facility] - (Admission Data below). DAPT on ASA and Plavix. Pt appears ill. Pt with PD cath and DM pump. Discussed care at length with bedside RN and RESPlead. On going aggressive medical mgt continues to optimize pt for continued success in the comprehensive rehab course. Complex needs are noted. Reviewed extensive records from [facility] and daughter says BIPAP settings. Assessment [...] reflux disease without esophagitis Dystrophia unguium Dysphagia- MEN'S LOCKER ROOM ATTENDANT to assess and follow Cardiogenic shock Anemia [...] PA 667 mg at 07/06/22 1229 peg 784-szmxfrikgrao-ledjjzrh 1-0.2-0.2 % ophthalmic solution 1 Drop 1 [...] 200 mg every 4 hours PRN Avni Clfiford PA folic acid-Vit B6-Vit B12 (FOLTX) per [...] male who recently has been admitted to [facility] for comprehensive rehabilitation - multiple complex medical issues will impact medical management throughout the acute inpatient rehabilitation process. Pt has a significant medical history including but not limited to CHF- EF 50%, Afib, HTN, CAD, T1DM, ESRD on PD, HLD, GERD, hyperparathyroidism, DDD, OA, gout, BEN on CPAP, who initially presented to [facility] for n/v, onset three days, with associated chest pain, generalized weakness, chills, ROONEY. Symptoms were relieved with sublingual ntg. His labs were notable for trop 1.0-->1.09-->0.729, BNP 20008. He had a CT CAP showing cholelithiasis [...] as optimal treatment. Pt was transfered to [place] on 06/05. Upon arrival EKG showed sinus [...] (most recent): No results found for: HGBA1C, [id number] LIPID panel result (most recent): No results [...] Ayala MD Internal Medicine Director // T MAINTENANCE MECHANIC T MAINTENANCE MECHANIC T MAINTENANCE MECHANIC * Srinivas Jon MD - 07/06/2022 12:52 [...] mainly, min LE drsg and foot wear. MEN'S LOCKER ROOM ATTENDANT: min for memory and PS. Goals: continue to address his medical stability, orthostasis, strengthening, endurance, balance toreach mod I at pr ELOS: 07/09 [facility] PT, OT, MEN'S LOCKER ROOM ATTENDANT, RN. Review of System: No fever, nausea/vomiting, [...] PA 667 mg at 07/06/22 1229 peg 621-gkwffnqfjjci-lotfvoou 1-0.2-0.2 % ophthalmic solution 1 Drop 1 [...] tablet 75 mg 75 mg daily Avni Cliffodr PA 75 mg at 07/06/22 0735 nitroglycerin (NITROSTAT) tablet 0.4 mg 0.4 mg every 5 minutes PRN Avni Clifford PA isosorbide mononitrate (IMDUR) SR 24 hour tablet 30 mg 30 mg daily Avni Cliffodr PA 30 mg at 07/06/22 0734 pantoprazole [...] Code: full F/u: PCP, Aditya Lara MD [phone] Cardiology Endocrinology Srinivas Jon MD T MAINTENANCE MECHANIC * Kamryn Browning RN - 07/05/2022 10:00 [...] replaced with new cartridge. Pt complaints of pain,[place] is given with all other meds. Hourly rounding,call light within reach , bed alarm on and low bed. Blood sugar checked. Bruised notedon his abdomen and dry & flaky skin. T MAINTENANCE MECHANIC * Marry Estrada RN - 07/05/2022 6:29 PM CST 07/04/22: I drain volume- 5 ml Total UF- 557 ml Effluent clear yellow 07/05/22: patient connected to peritoneal dialysis. Dressing changed earlier in the day. Patient is calm, alert and oriented x's 4. T MAINTENANCE MECHANIC * Jasmin Bradley MD - 07/05/2022 5:00 [...] TIBC, FERRITIN, Lab Results Component Value Date [id number] 1,178 06/30/2022 , No results found for: [...] BRADLEY MD [facility] [phone] T MAINTENANCE MECHANIC * Conrad Dumont MD - 07/05/2022 2:10 [...] overnight was 99 ??F. PD management continues. Cfdyt-pd-rear glucoses are elevated patient is following endocrine's [...] needs are noted. Reviewed extensive records from [facility] and daughter says BIPAP settings. Assessment [...] reflux disease without esophagitis Dystrophia unguium Dysphagia- MEN'S LOCKER ROOM ATTENDANT to assess and follow Cardiogenic shock Anemia [...] PA 667 mg at 07/05/22 1201 peg 373-jkiowgbxpdqd-rgsqmqqr 1-0.2-0.2 % ophthalmic solution 1 Drop 1 [...] male who recently has been admitted to [facility] for comprehensive rehabilitation - multiple complex medical issues will impact medical management throughout the acute inpatient rehabilitation process. Pt has a significant medical history including but not limited to CHF- EF 50%, Afib, HTN, CAD, T1DM, ESRD on PD, HLD, GERD, hyperparathyroidism, DDD, OA, gout, BEN on CPAP, who initially presented to [facility] for n/v, onset three days, with associated chest pain, generalized weakness, chills, ROONEY. Symptoms were relieved with sublingual ntg. His labs were notable for trop 1.0-->1.09-->0.729, BNP 56627. He had a CT CAP showing cholelithiasis [...] as optimal treatment. Pt was transfered to [place] on 06/05. Upon arrival EKG showed sinus [...] (most recent): No results found for: HGBA1C, [id number] LIPID panel result (most recent): No results [...] Ayala MD Internal Medicine Director // T MAINTENANCE MECHANIC T MAINTENANCE MECHANIC T MAINTENANCE MECHANIC * Srinivas Jon MD - 07/05/2022 11:19 [...] mainly, min LE drsg and foot wear. MEN'S LOCKER ROOM ATTENDANT: min for memory and PS. Goals: continue to address his medical stability, orthostasis, strengthening, endurance, balance toreach mod I at dc ELOS: 07/09 [facility] PT, OT, MEN'S LOCKER ROOM ATTENDANT, RN. Review of System: No fever, nausea/vomiting, [...] PA 667 mg at 07/05/22 0820 peg 052-vunplxjmuuxw-quzvznye 1-0.2-0.2 % ophthalmic solution 1 Drop 1 [...] Code: full F/u: PCP, Aditya Lara MD [phone] Cardiology Endocrinology Srinivas Jon MD T MAINTENANCE MECHANIC * Kamryn Browning RN - 07/04/2022 10:30 [...] checked QID. Took all meds,denies any pain. men's golf coach hooked him to the peritoneal machine around 8:15PM. Needs attended to. Hourly rounding,call light within reach and low. T MAINTENANCE MECHANIC * Filomena Sibley RN - 07/04/2022 8:36 PM CST Patient alert and oriented, timeout completed and consent given for CCPD prior to connection. CCPD Connected at 20:15. Dressing changed per protocol no signs and symptoms of infection on exit site. Report given to primary nurse,CCPD approximate end time is 06:30 next morning. T MAINTENANCE MECHANIC * Jasmin Bradley MD - 07/04/2022 5:00 [...] TIBC, FERRITIN, Lab Results Component Value Date [id number] 1,178 06/30/2022 , No results found for: [...] BRADLEY MD [facility] [phone] T MAINTENANCE MECHANIC * Maggie Eric LPN - 07/04/2022 4:45 [...] Education on Medications Maggie Eric LPN T MAINTENANCE MECHANIC * Srinivas Jon MD - 07/04/2022 12:09 [...] PA 667 mg at 07/04/22 1109 peg 651-mwfzpjtbniue-wtafkaej 1-0.2-0.2 % ophthalmic solution 1 Drop 1 [...] Code: full F/u: PCP, Aditya Lara MD [phone] Cardiology Endocrinology Srinivas Jon MD T MAINTENANCE MECHANIC * Conrad Dumont MD - 07/04/2022 11:20 [...] overnight was 99 ??F. PD management continues. Ovthu-nl-tqmj glucoses are elevated patient is following endocrine's [...] needs are noted. Reviewed extensive records from [facility] and daughter says BIPAP settings. Assessment [...] reflux disease without esophagitis Dystrophia unguium Dysphagia- MEN'S LOCKER ROOM ATTENDANT to assess and follow Cardiogenic shock Anemia [...] PA 667 mg at 07/04/22 1109 peg 409-rodtgawmitdr-kxhfrxgq 1-0.2-0.2 % ophthalmic solution 1 Drop 1 [...] male who recently has been admitted to [facility] for comprehensive rehabilitation - multiple complex medical issues will impact medical management throughout the acute inpatient rehabilitation process. Pt has a significant medical history including but not limited to CHF- EF 50%, Afib, HTN, CAD, T1DM, ESRD on PD, HLD, GERD, hyperparathyroidism, DDD, OA, gout, BEN on CPAP, who initially presented to [facility] for n/v, onset three days, with associated chest pain, generalized weakness, chills, ROONEY. Symptoms were relieved with sublingual ntg. His labs were notable for trop 1.0-->1.09-->0.729, BNP 97976. He had a CT CAP showing cholelithiasis [...] as optimal treatment. Pt was transfered to [place] on 06/05. Upon arrival EKG showed sinus [...] (most recent): No results found for: HGBA1C, [id number] LIPID panel result (most recent): No results [...] Ayala MD Internal Medicine Director // T MAINTENANCE MECHANIC T MAINTENANCE MECHANIC T MAINTENANCE MECHANIC * Tiffanie Aiken LPN - 07/04/2022 5:52 [...] of their medication Tiffanie Aiken LPN T MAINTENANCE MECHANIC * Jasmin Bradley MD - 07/03/2022 5:00 [...] Intake/Output Summary (Last 24 hours) at 07/03/2022 0842 Last data filed at 07/03/20222000 Gross per [...] TIBC, FERRITIN, Lab Results Component Value Date [id number] 1,178 06/30/2022 , No results found for: [...] up closely with you. JASMIN BRADLEY MD [facility] [phone] T MAINTENANCE MECHANIC * Leonela Lantigua RN - 07/03/2022 4:10 [...] one with 200units insulin. Site changed to [facility] . No compl noted to the old site. Rate was 0.8/hr. BG at 11:22 per our meter 316. At 12:16 bgwas 370 per pt meter and he gave himself 10.35units . Rate was 0.8units/hr.pt spent the afternoon up in greeting card maker with legs elevated. This afternoon pt c/o sore on his buttocks he had at [place]. Picture taken and camo/mepilex applied. No c/o pain. For dinner BG per our meter 368 at 4:31pm. At 4:51pm pt meter BG 373.Rate 0.8units per hr. Pt gave 7.2 units per Omnipod. At end of shift Dialysis nurse here setting up nightly PD. T MAINTENANCE MECHANIC T MAINTENANCE MECHANIC T MAINTENANCE MECHANIC * Srinivas Jon MD - 07/03/2022 1:15 [...] strengthening, endurance, balance toreach mod I at pr ELOS: re-eval on Mon. Review of System: [...] PA 667 mg at 07/03/22 1215 peg 715-hkrfamrvnric-zdkzkpjo 1-0.2-0.2 % ophthalmic solution 1 Drop 1 [...] Code: full F/u: PCP, Aditya Lara MD [phone] Cardiology Endocrinology Srinivas Jon MD T MAINTENANCE MECHANIC * Rosa Raya LPN - 07/03/2022 6:27 AM CST PD completed 519 and disconnected, patient experienced routine night during this shift. Baseline functioning, interacting with nursing, medications administered and documented per MAR, safety and fall precautions followed, call- light in reach. T MAINTENANCE MECHANIC * Rosa Raya LPN - 07/03/2022 1:02 [...] of their medication Rosa Raya LPN T MAINTENANCE MECHANIC * Filomena Sibley RN - 07/02/2022 6:54 PM CST Patient alert and oriented, timeout completed and consent given for CCPD prior to connection. CCPD Connected at 18:35. Dressing changed per protocol no signs and symptoms of infection on exit site. Report given to primary nurse,CCPD approximate end time is 05:05 next morning. T MAINTENANCE MECHANIC * Leonela Lantigua RN - 07/02/2022 6:28 [...] in room hooking up his PD. T MAINTENANCE MECHANIC T MAINTENANCE MECHANIC * Jasmin Bradley MD - 07/02/2022 5:00 [...] 07/02/2022 1830 Gross per 24 hour Intake 51175 ml Output 2024 ml Net 15709 ml Examination: RRR, CTA Soft, NT , [...] TIBC, FERRITIN, Lab Results Component Value Date [id number] 1,178 06/30/2022 , No results found for: FOLATE, FOLATERBC, Lab Results Component Value Date CA 9.0 07/01/2022 PO4 5.3 (H) 07/01/2022 , Lab Results Component Value Date CREAT 9.56 (H) 07/01/2022 GFR 6 (L) 07/01/2022 , No results found for: RPR, RPRTITER, No results found for: CHOLTOT, HDL, LDLCALC, LDLDIRECT, TRIGLYCERIDE, No results found for: ESR, ESRPOC, SHAWN, ANASCREEN, ANATITER, RHEUMFACTOR, CRP, CRPHS, A4GOQHYFYRX, K2DQRVBZOTC, DNAAB, DNADSAB, CCPABIGG, Lab Results Component Value [...] up closely with you. JASMIN BRADLEY MD [facility] [phone] T MAINTENANCE MECHANIC * Conrad Dumont MD - 07/02/2022 1:05 [...] overnight was 99 ??F. PD management continues. Vpidy-jn-djgw glucoses are elevated patient is following endocrine's [...] crucial and indicated. 06/29/2022 - Admission to [facility] - (Admission Data below). DAPT on ASA and Plavix. Pt appears ill. Pt with PD cath and DM pump. Discussed care at length with bedside RN and RESPlead. On going aggressive medical mgt continues to optimize pt for continued success in the comprehensive rehab course. Complex needs are noted. Reviewed extensive records from [facility] and daughter says BIPAP settings. Assessment [...] reflux disease without esophagitis Dystrophia unguium Dysphagia- MEN'S LOCKER ROOM ATTENDANT to assess and follow Cardiogenic shock Anemia [...] PA 667 mg at 07/02/22 1214 peg 811-wlpgymujidls-wfqoxbgb 1-0.2-0.2 % ophthalmic solution 1 Drop 1 Drop QID vAni Clifford PA 1 Drop at 07/02/22 1247 [...] PA 5 mg at 06/30/22 0801 cloNIDine (ADXSMXPH-BBD-0) 0.1 mg/24 hr transdermal patch 1 Patch [...] male who recently has been admitted to [facility] for comprehensive rehabilitation - multiple complex medical issues will impact medical management throughout the acute inpatient rehabilitation process. Pt has a significant medical history including but not limited to CHF- EF 50%, Afib, HTN, CAD, T1DM, ESRD on PD, HLD, GERD, hyperparathyroidism, DDD, OA, gout, BEN on CPAP, who initially presented to [facility] for n/v, onset three days, with associated chest pain, generalized weakness, chills, ROONEY. Symptoms were relieved with sublingual ntg. His labs were notable for trop 1.0-->1.09-->0.729, BNP 51370. He had a CT CAP showing cholelithiasis [...] as optimal treatment. Pt was transfered to [place] on 06/05. Upon arrival EKG showed sinus [...] (most recent): No results found for: HGBA1C, [id number] LIPID panel result (most recent): No results [...] Ayala MD Internal Medicine Director // T MAINTENANCE MECHANIC T MAINTENANCE MECHANIC T MAINTENANCE MECHANIC * Srinivas Jon MD - 07/02/2022 11:15 [...] strengthening, endurance, balance toreach mod I at pr ELOS: re-eval on Mon. Review of System: [...] PA 667 mg at 07/02/22 0753 peg 589-jxlqrrhfrhyd-rxlfxebz 1-0.2-0.2 % ophthalmic solution 1 Drop 1 [...] (LOPRESSOR) tablet 25 mg 25 mg BID Avin Clifford PA 25 mg at 07/02/22 0754 [...] PA 5 mg at 06/30/22 0801 cloNIDine (MNMVBQEP-GIZ-9) 0.1 mg/24 hr transdermal patch 1 Patch [...] Code: full F/u: PCP, Aditya Lara MD [phone] Cardiology Endocrinology Srinivas Jon MD T MAINTENANCE MECHANIC * Filomena Sibley RN - 07/01/2022 10:17 PM CST Patient alert and oriented, timeout completed and consent given for CCPD prior to connection. CCPD Connected at 19:42. Dressing changed per protocol no signs and symptoms of infection on exit site. Report given to primary nurse,CCPD approximate end time is 06:15 next morning. T MAINTENANCE MECHANIC * Jasmin Bradley MD - 07/01/2022 5:00 [...] 07/01/2022 1200 Gross per 24 hour Intake 12095 ml Output 1413 ml Net 48796 ml Examination: RRR, CTA Soft, NT , [...] TIBC, FERRITIN, Lab Results Component Value Date [id number] 1,178 06/30/2022 , No results found for: FOLATE, FOLATERBC, Lab Results Component Value Date CA 9.0 07/01/2022 PO4 5.3 (H) 07/01/2022 , Lab Results Component Value Date CREAT 9.56 (H) 07/01/2022 GFR 6 (L) 07/01/2022 , No results found for: RPR, RPRTITER, No results found for: CHOLTOT, HDL, LDLCALC, LDLDIRECT, TRIGLYCERIDE, No results found for: ESR, ESRPOC, SHAWN, ANASCREEN, ANATITER, RHEUMFACTOR, CRP, CRPHS, F7RDSDDLZJW, L0RXIUTREPQ, DNAAB, DNADSAB, CCPABIGG, Lab Results Component Value [...] blood pressure --Losartan 12.5 mg daily -- Cremator 30 mg daily -- Metoprolol 25 mg [...] BRADLEY MD [facility] [phone] T MAINTENANCE MECHANIC * Conrad Dumont MD - 07/01/2022 11:46 [...] crucial and indicated. 06/29/2022 - Admission to [facility] - (Admission Data below). DAPT on ASA and Plavix. Pt appears ill. Pt with PD cath and DM pump. Discussed care at length with bedside RN and RESPlead. On going aggressive medical mgt continues to optimize pt for continued success in the comprehensive rehab course. Complex needs are noted. Reviewed extensive records from [facility] and daughter says BIPAP settings. Assessment [...] reflux disease without esophagitis Dystrophia unguium Dysphagia- MEN'S LOCKER ROOM ATTENDANT to assess and follow Cardiogenic shock Anemia [...] PA 667 mg at 07/01/22 1130 peg 007-hverrfpztbdq-rvysbyde 1-0.2-0.2 % ophthalmic solution 1 Drop 1 [...] injection QID WITH meals and HS Avni lCifford PA colchicine (COLCRYS) tablet 0.6 mg 0.6 [...] PA 5 mg at 06/30/22 0801 cloNIDine (ISGSDAFK-KGZ-3) 0.1 mg/24 hr transdermal patch 1 Patch [...] male who recently has been admitted to [facility] for comprehensive rehabilitation - multiple complex medical issues will impact medical management throughout the acute inpatient rehabilitation process. Pt has a significant medical history including but not limited to CHF- EF 50%, Afib, HTN, CAD, T1DM, ESRD on PD, HLD, GERD, hyperparathyroidism, DDD, OA, gout, BEN on CPAP, who initially presented to [facility] for n/v, onset three days, with associated chest pain, generalized weakness, chills, ROONEY. Symptoms were relieved with sublingual ntg. His labs were notable for trop 1.0-->1.09-->0.729, BNP 57725. He had a CT CAP showing cholelithiasis [...] as optimal treatment. Pt was transfered to [place] on 06/05. Upon arrival EKG showed sinus [...] (most recent): No results found for: HGBA1C, [id number] LIPID panel result (most recent): No results [...] Ayala MD Internal Medicine Director // T MAINTENANCE MECHANIC T MAINTENANCE MECHANIC T MAINTENANCE MECHANIC * Srinivas Jon MD - 07/01/2022 10:59 [...] PA 667 mg at 07/01/22 0810 peg 749-zfhanyaxwmxw-thddlkfc 1-0.2-0.2 % ophthalmic solution 1 Drop 1 [...] PA 5 mg at 06/30/22 0801 cloNIDine (GHNLDYIY-LUP-8) 0.1 mg/24 hr transdermal patch 1 Patch [...] Code: full F/u: PCP, Aditya Lara MD [phone] Cardiology Endocrinology Srinivas Jon MD T MAINTENANCE MECHANIC * Rosa Raya LPN - 07/01/2022 6:09 [...] fall precautions followed, call-light in reach. T MAINTENANCE MECHANIC * Rosa Raya LPN - 07/01/2022 12:44 [...] of their medication Rosa Raya LPN T MAINTENANCE MECHANIC * Filomena Sibley RN - 06/30/2022 10:24 PM CST Patient alert and oriented, timeout completed and consent given for CCPD prior to connection. CCPD Connected at 22:05. Dressing changed per protocol no signs and symptoms of infection on exit site. Report given to primary nurse,CCPD approximate end time is 08:35 next morning. T MAINTENANCE MECHANIC * Jasmin Bradley MD - 06/30/2022 5:00 [...] 06/30/2022 2205 Gross per 24 hour Intake 07433 ml Output 1588 ml Net 03020 ml Examination: RRR, CTA Soft, NT , [...] TIBC, FERRITIN, Lab Results Component Value Date [id number] 1,178 06/30/2022 , No results found for: FOLATE, FOLATERBC, Lab Results Component Value Date CA 9.1 06/30/2022 , Lab Results Component Value Date CREAT 9.78 (H) 06/30/2022 GFR 6 (L) 06/30/2022 , No results found for: RPR, RPRTITER, No results found for: CHOLTOT, HDL, LDLCALC, LDLDIRECT, TRIGLYCERIDE, No results found for: ESR, ESRPOC, SHAWN, ANASCREEN, ANATITER, RHEUMFACTOR, CRP, CRPHS, X1TUTTHNOWS, S8NRKZCASLF, DNAAB, DNADSAB, CCPABIGG, Lab Results Component Value [...] blood pressure --Losartan 12.5 mg daily -- Cremator 30 mg daily -- Metoprolol 25 mg [...] up closely with you. JASMIN BRADLEY MD [facility] [phone] T MAINTENANCE MECHANIC * Conrad Dumont MD - 06/30/2022 11:42 [...] crucial and indicated. 06/29/2022 - Admission to [facility] - (Admission Data below). DAPT on ASA and Plavix. Pt appears ill. Pt with PD cath and DM pump. Discussed care at length with bedside RN and RESPlead. On going aggressive medical mgt continues to optimize pt for continued success in the comprehensive rehab course. Complex needs are noted. Reviewed extensive records from [facility] and daughter says BIPAP settings. Assessment [...] reflux disease without esophagitis Dystrophia unguium Dysphagia- MEN'S LOCKER ROOM ATTENDANT to assess and follow Cardiogenic shock Anemia [...] PA 667 mg at 06/30/22 0806 peg 558-suwgpjuywmog-vlflubbc 1-0.2-0.2 % ophthalmic solution 1 Drop 1 [...] PA 5 mg at 06/30/22 0801 cloNIDine (OYERVOYJ-AIZ-3) 0.1 mg/24 hr transdermal patch 1 Patch [...] male who recently has been admitted to [facility] for comprehensive rehabilitation - multiple complex medical issues will impact medical management throughout the acute inpatient rehabilitation process. Pt has a significant medical history including but not limited to CHF- EF 50%, Afib, HTN, CAD, T1DM, ESRD on PD, HLD, GERD, hyperparathyroidism, DDD, OA, gout, BEN on CPAP, who initially presented to [facility] for n/v, onset three days, with associated chest pain, generalized weakness, chills, ROONEY. Symptoms were relieved with sublingual ntg. His labs were notable for trop 1.0-->1.09-->0.729, BNP 10415. He had a CT CAP showing cholelithiasis [...] as optimal treatment. Pt was transfered to [place] on 06/05. Upon arrival EKG showed sinus [...] (most recent): No results found for: HGBA1C, [id number] LIPID panel result (most recent): No results [...] Ayala MD Internal Medicine Director // T MAINTENANCE MECHANIC T MAINTENANCE MECHANIC T MAINTENANCE MECHANIC * Chirag Pan, [facility] - 06/30/2022 10:06 AM CST [facility] RT Assess and Treat Worksheet and Note Admitting Diagnosis/Pulmonary History:Cardiogenic shock, BEN, CHF Home Regimen: none Home Oxygen/CPAP/BiPap: Bipap / Please Call Respiratory therapy at [phone] if you have any questions or a change in patient conditions. # Date Building Principal Respiratory Orders Comments 1 06/29/22 [facility]HB Bipap [...] Post Discharge Education Plan Pt response: Referrals [id number] - Referral to Smoke Cessation [id number] - Referral to Pulmonary Rehab General Ed [id number] - JESUS Smoking Cessation [id number] - JESUS Nebulizer Ed [id number] - JESUS MDI Ed [id number] - JESUS DPI Ed [id number] - JESUS Spiriva HandiHaler Ed Disease Ed [id number] - JESUS Pneumonia Ed [id number] - JESUS Asthma Ed [id number] - JESUS COPD Ed CXR A = [...] Score PH = Score per Pulmonary History VA = MDI independent Score WOB = Score per Work of Breathing AI = [place] independent Score RR = Score per Respiratory Rate Score O2 = Score per Oxygen requirement Score BS = Score per Breathsounds Score SH = Score per Smoking History T MAINTENANCE MECHANIC * Chirag Pan RCP - 06/30/2022 10:05 AM CST Images from the original note were not included. Respiratory Therapy Assess and Treat Protocol- [facility] ORDERS ARE ENTERED ???PER PROTOCOL?? Enter the protocol in the patient???s electronic health record using FlowMetric: .rtassessandtreatprotocol Respiratory Therapy orders: Requires a written order for Assess and Treat Protocol (RT41) or IP Consult to Respiratory Therapy (CON21) by the physician or the physician sander and buffer. Oxygen desaturation studies (walk studies) must be [...] (CON21) by the physician or the physician sander and buffer. 2. Only licensed Respiratory Therapists will be [...] home regimen medications as listed in their PRODUCTION CREW SUPERVISOR medication list as appropriate. Patients in [facility] [...] not indicated for patients transitioning to a half-way facility, rehabilitation facility, or who have not required oxygen since admission unless otherwise specified by the physician. ASSESS AND TREAT PROTOCOL-ADULT BRONCHODILATION PROCEDURE Indications: Bronchospasm/wheezing (Reactive Airway Disease, Asthma, Emphysema, Chronic Bronchitis, Bronchiolitis) Current Home Bronchodilator usage including short-acting, long-acting, inhaled corticosteroid, anticholinergic, and combination respiratory medications. Other indications stated in the [place] [employer]???s Clinical Practice Guidelines, [...] the patient is being managed by their Check Processor. Determine Mode of Delivery using chart below. [...] MDI 4)Considerations Review patient???s Prior to Admission (PRODUCTION CREW SUPERVISOR) medication list. The Respiratory Therapist will consider ordering any of the following meds based on the patient???s home regimen: Short and long-acting bronchodilators, inhaled corticosteroids, anticholinergics, and combination respiratory medications. Use of the preferred [facility] formulary equivalent should be ordered per Assess and Treat Protocol for use throughout the patients hospital stay. Patients diagnosed with a chronic lung disease, such as COPD or Asthma, will be evaluated for the benefit of a controller medication therapy (long-acting bronchodilators, inhaled corticosteroids, anticholinergics, and combination respiratory medications) if not already on the PRODUCTION CREW SUPERVISOR medication list. The Respiratory Therapist will contact the attending physician if a controller therapy may benefit the patient. Xopenex (Levalbuterol) Orders will be followed as below: See Pharmacy Policy, Section: APPROVED THERAPEUTIC INTERCHANGES FOR [facility] Title: Beta Agonists Patients taking home [...] Leadership, Pharmacy & Therapeutics CommitteeDate: 10/2017 T MAINTENANCE MECHANIC * Srinivas Jon MD - 06/30/2022 9:28 [...] PA 667 mg at 06/30/22 0806 peg 403-uwytnkiyubgv-vzdfztyd 1-0.2-0.2 % ophthalmic solution 1 Drop 1 [...] per tablet 1 Tablet 1 Tablet daily Avin Clifford PA 1 Tablet at 06/30/22 08 [...] PA 5 mg at 06/30/22 0801 cloNIDine (IHPDKPUT-VFO-4) 0.1 mg/24 hr transdermal patch 1 Patch [...] (most recent): No results found for: GLUCOSEF, QMFWIFE3RS, GLUCOSE Coagulation result (most recent): No results [...] Code: full F/u: PCP, Aditya Lara MD [phone] Cardiology Endocrinology Srinivas Jon MD T MAINTENANCE MECHANIC * Aviva Alfaro RN - 06/30/2022 6:04 AM CST Patient experienced routine night on this 12 hour shift. Received report. Pt was resting in bed. Complaints of pain everywhere. Pt had already received Tylenol, which he stated was not helping. Notified Dr. Jon. Orders received for [place]. Last BM 06-29. Pt is oliguric. Pt connected to peritoneal dialysis by health science instructor, to be disconnected around 0830 in the [...] Indication for use Aviva Alfaro RN T MAINTENANCE MECHANIC * Filomena Sibley RN - 06/29/2022 10:05 PM CST Patient alert and oriented, timeout completed and consent given for CCPD prior to connection. CCPD Connected at 21:50. Dressing changed per protocol no signs and symptoms of infection on exit site. Report given to primary nurse,CCPD approximate end time is 08:20 next morning. T MAINTENANCE MECHANIC * Maggie Eric LPN - 06/29/2022 6:18 PM CST 9.6u self administered via insulin pump this evening after blood glucose reading of 265. T MAINTENANCE MECHANIC * Maggie Eric LPN - 06/29/2022 3:48 [...] injury, consult physician. 7. Is a medical staff director in place? no If yes, remove device/brace/splint to check skin underneath, obtain provider order if necessary. 8. Does the patient have a wound VAC (negative pressure wound therapy)? no If yes, please consult wound care services and follow facility process. 9. Does the patient have an ostomy? no If yes, please consult wound care services. T MAINTENANCE MECHANIC documented in this encounter H&P Notes * [...] Timeline (including subjective): 06/29/2022 - Admission to [facility] - (Admission Data below). DAPT on ASA [...] reflux disease without esophagitis Dystrophia unguium Dysphagia- MEN'S LOCKER ROOM ATTENDANT to assess and follow Cardiogenic shock Anemia [...] TID BEFORE meals Avni Clifford PA peg 753-uwteijxqjyrf-rcqdexsn 1-0.2-0.2 % ophthalmic solution 1 Drop 1 [...] Avni Clifford PA [START ON 06/30/2022] cloNIDine (MUCONCJZ-RUS-9) 0.1 mg/24 hr transdermal patch 1 Patch 1 Patch every 7 days Avni Clifford PA New Admission Meds - retrieve upon admission every 4 hours Avni Clifford PA melatonin tablet 6 mg 6 mg daily BEDTIME Avni Clifford PA Admission Data : CC: Debility/Cardiogenic shock/HTN HPI: Juvenal Daigle is a 51 y.o. male who recently has been admitted to [facility] for comprehensive rehabilitation - multiple complex medical issues will impact medical management throughout the acute inpatient rehabilitation process. Pt has a significant medical history including but not limited to CHF- EF 50%, Afib, HTN, CAD, T1DM, ESRD on PD, HLD, GERD, hyperparathyroidism, DDD, OA, gout, BEN on CPAP, who initially presented to [facility] for n/v, onset three days, with associated chest pain, generalized weakness, chills, ROONEY. Symptoms were relieved with sublingual ntg. His labs were notable for trop 1.0-->1.09-->0.729, BNP 52657. He had a CT CAP showing cholelithiasis [...] as optimal treatment. Pt was transfered to [place] on 06/05. Upon arrival EKG showed sinus [...] (most recent): No results found for: HGBA1C, ZPVS8GYFU LIPID panel result (most recent): No results [...] may have occurred. Conrad Dumont MD T MAINTENANCE MECHANIC T MAINTENANCE MECHANIC T MAINTENANCE MECHANIC documented in this encounter Consult Notes * [...] BEN on CPAP who initially presented to [facility] for n/v and chest pain. Per Pt he had 3 days of generalized weakness, chills, ROONEY, n/v, chest pain relieved by sublingual ntg. His labs were notable for trop 1.0-->1.09-->0.729, BNP 66197. He had a CT CAP showing cholelithiasis [...] as optimal treatment. Pt was transfered to [place] on 06/05. Upon arrival EKG showed sinus [...] appropriate, he was tr ansferred to [facility] for comprehensive rehabilitation on 06/29/22. Functional Status: [...] PA 667 mg at 06/29/22 1654 peg 892-ihoornookvii-kghwozje 1-0.2-0.2 % ophthalmic solution 1 Drop 1 [...] Avni Clifford PA [START ON 06/30/2022] cloNIDine (HZVBMWVN-WER-5) 0.1 mg/24 hr transdermal patch 1 Patch [...] found for: TSH, TSHULTRA, THYROIDSTIM, T3, T3FREE, H2WCERZH, T4, T4FREE, FT4E, TPO, THROIDAB, THYROIDMI No results found for: JHDYCTIN36 No results found for: UJLN034, VITD25, BAQM81JQF5, GRHR35OTK9, HQCN85DTNK, 25OHVITD No results found for: HGBA1C, SXAT9FUGD No results found for: PHUA, SGUR, URINELEUKOC, [...] be performed under the direction of a impress associate. CAD, s/p NSTEMI, s/p PCI. Cont asa, [...] Code: full F/u: PCP, Aditya Lara MD [phone] Cardiology Endocrinology Barriers to immediate discharge to [...] Total time spent on this evaluation, examination, general counselor with patient and/or family/caregivers, determination documentation and initiation of plan of care was more than 70 minutes. Srinivas Jon MD T MAINTENANCE MECHANIC * Jasmin Bradley MD - 06/29/2022 5:00 [...] BEN on CPAP, who initially presented to [facility] for nausea and vomiting for three days, associated chest pain, generalized weakness, chills, ROONEY. Symptoms were relieved with sublingual NTG. His labs were notable for elevated troponin 1.0-->1.09-->0.729, BNP 04028. He had a CT C/A/P showing cholelithiasis [...] as optimal treatment. He was transfered to [place] on 06/05/22. Upon arrival EKG showed sinus [...] been deemed medically stable and transferred to [facility] for comprehensive inpatient rehab. I am [...] 18 UNITS SUBCUTANEOUSLY TID W MEALS Insulin [place], Disposable, (TRUEPLUS PEN NEEDLE) 31 gauge x [...] Sig: Take 30 mg by mouth daily belt knife feeder. isosorbide mononitrate (IMDUR) 60 mg Extended Release 24 hour tablet Yes No Sig: Take 60 mg by mouth daily belt knife feeder. ketoconazole (NIZORAL) 2 % Shampoo Yes No [...] blood pressure --Losartan 12.5 mg daily -- Cremator 30 mg daily -- Metoprolol 25 mg [...] up closely with you. JASMIN BRADLEY MD [facility] [phone] T MAINTENANCE MECHANIC documented in this encounter Miscellaneous Notes * [...] not leave alone in the bathroom. T MAINTENANCE MECHANIC * Care Plan - Leonela Lantigua RN [...] not leave alone in the bathroom. T MAINTENANCE MECHANIC * Care Plan - Katerina Griffith RN [...] because of medications (i.e. - BP meds, CV/[employer]YWOOD AND VENEER REPAIRER meds, seizure meds, diuretics, pain meds, psych [...] or maintain baseline function Outcome: Progressing T MAINTENANCE MECHANIC * Care Plan - Leonela Lantigua RN [...] not leave alone in the bathroom. T MAINTENANCE MECHANIC * Care Plan - Rosa Raya LPN - 07/02/2022 9:36 PM CST Day 1 - Current ([place] [facility]: Adult and Obstetrics) Patient, family, or [...] because of medications (i.e. - BP meds, CV/PLYWOOD AND VENEER REPAIRER meds, seizure meds, diuretics, pain meds, psych [...] or maintain baseline function Outcome: Progressing T MAINTENANCE MECHANIC * Care Plan - Leonela Lantigua RN [...] not leave alone in the bathroom. T MAINTENANCE MECHANIC * Care Plan - Deep Denson RN [...] was started on peritoneal dialysis by the [facility] dialysis nurse during the evening. Pt appears to be tolerating well at this time. No acute distress evident. Medicated for pain as needed this shift. T MAINTENANCE MECHANIC * Care Plan - Elver RosaMARK ANTHONY garrett - 06/30/2022 8:05 PM CST Day 1 - Current ([place] [facility]: Adult and Obstetrics) Patient, family, or [...] because of medications (i.e. - BP meds, CV/PLYWOOD [employer] VENEER REPAIRER meds, seizure meds, diuretics, pain meds, psych [...] and vomiting as needed Outcome: Progressing T MAINTENANCE MECHANIC * Initial Assessments - Abelardo Weber, GAVIN - 06/30/2022 4:14 PM PLANT MAINTENANCE MECHANIC CLINICAL DIETITIAN ASSESSMENT NOTE [facility] Juvenal Daigle 51 y.o. male [...] for more wound documentation Edema (per provider short order fry cook charting): +LE Pert Meds: calphron, foltx, furosemide, [...] 05:46 AM No results found for: HGBA1C, AOAB4LJCO No results found for: CHOLTOT, HDL, LDLCALC, LDLDIRECT, TRIGLYCERIDE D: Increased protein needs r/t altered absorption or metabolism of nutrients as evidenced by ESRD on PD Nutrition Risk: mild d/t good appetite and pt reporting understanding diet M/E: Monitor nutrition, weight, lab values, and skin. Follow up based on nutrition risk or as needed. Abelardo Weber RD, LD T MAINTENANCE MECHANIC * Care Plan - Aviva Alfaro RN [...] Activity intolerance, Potential/Actual Musculoskeletal Interventions: Mobility promoted [place] in ADL???s promoted Adaptive equipment provided Slow, progressive position changes T MAINTENANCE MECHANIC documented in this encounter Plan of Treatment Not on file documented as of this encounter Procedures Procedure Name Priority Date/Time Associated Diagnosis Comments EKG 12-LEAD Routine 07/20/2022 1:12 PM PLANT MAINTENANCE MECHANIC POC GLUCOSE Routine 07/08/2022 12:12 PM PLANT MAINTENANCE MECHANIC POC GLUCOSE Routine 07/08/2022 7:56 AM PLANT MAINTENANCE MECHANIC CBC WITH DIFFERENTIAL Routine 07/08/2022 4:53 AM PLANT MAINTENANCE MECHANIC C-REACTIVE PROTEIN Routine 07/08/2022 4: 53 AM PLANT MAINTENANCE MECHANIC BRAIN NATRIURETIC PEPTIDE, BNP OR PROBNP Routine 07/08/2022 4:53 AM PLANT MAINTENANCE MECHANIC MAGNESIUM LEVEL Routine 07/08/2022 4:53 AM PLANT MAINTENANCE MECHANIC COMPREHENSIVE METABOLIC PANEL Routine 07/08/2022 4:53 AM PLANT MAINTENANCE MECHANIC POC GLUCOSE Routine 07/07/2022 8:27 PM PLANT MAINTENANCE MECHANIC POC GLUCOSE Routine 07/07/2022 4:58 PM PLANT MAINTENANCE MECHANIC POC GLUCOSE Routine 07/07/2022 11:38 AM PLANT MAINTENANCE MECHANIC POC GLUCOSE Routine 07/07/2022 7:29 AM PLANT MAINTENANCE MECHANIC POC GLUCOSE Routine 07/06/2022 8:10 PM PLANT MAINTENANCE MECHANIC POC GLUCOSE Routine 07/06/2022 4:44 PM PLANT MAINTENANCE MECHANIC POC GLUCOSE Routine 07/06/2022 12:21 PM PLANT MAINTENANCE MECHANIC POC GLUCOSE Routine 07/06/2022 7:21 AM PLANT MAINTENANCE MECHANIC POC GLUCOSE Routine 07/05/2022 8:19 PM PLANT MAINTENANCE MECHANIC POC GLUCOSE Routine 07/05/2022 4:26 PM PLANT MAINTENANCE MECHANIC POC GLUCOSE Routine 07/05/2022 11:30 AM PLANT MAINTENANCE MECHANIC POC GLUCOSE Routine 07/05/2022 7:31 AM PLANT MAINTENANCE MECHANIC POC GLUCOSE Routine 07/04/2022 9:01 PM PLANT MAINTENANCE MECHANIC POC GLUCOSE Routine 07/04/2022 4:49 PM PLANT MAINTENANCE MECHANIC POC GLUCOSE Routine 07/04/2022 11:32 AM PLANT MAINTENANCE MECHANIC CBC WITH DIFFERENTIAL Routine 07/04/2022 11:09 AM PLANT MAINTENANCE MECHANIC C-REACTIVE PROTEIN Routine 07/04/2022 11 :09 AM PLANT MAINTENANCE MECHANIC BRAIN NATRIURETIC PEPTIDE, BNP OR PROBNP Routine 07/04/2022 11:09 AM PLANT MAINTENANCE MECHANIC MAGNESIUM LEVEL Routine 07/04/2022 11:09 AM PLANT MAINTENANCE MECHANIC COMPREHENSIVE METABOLIC PANEL Routine 07/04/2022 11:09 AM PLANT MAINTENANCE MECHANIC POC GLUCOSE Routine 07/04/2022 7:17 AM PLANT MAINTENANCE MECHANIC POC GLUCOSE Routine 07/03/2022 8:09 PM PLANT MAINTENANCE MECHANIC POC GLUCOSE Routine 07/03/2022 4:31 PM PLANT MAINTENANCE MECHANIC POC GLUCOSE Routine 07/03/2022 11:22 AM PLANT MAINTENANCE MECHANIC XR CHEST PA OR AP 1 VW Routine 9:35 AM PLANT MAINTENANCE MECHANIC POC GLUCOSE Routine 07/03/2022 7:35 AM PLANT MAINTENANCE MECHANIC CBC WITH DIFFERENTIAL Routine 07/03/2022 5:44 AM PLANT MAINTENANCE MECHANIC C-REACTIVE PROTEIN Routine 07/03/2022 5: 44 AM PLANT MAINTENANCE MECHANIC BRAIN NATRIURETIC PEPTIDE, BNP OR PROBNP Routine 07/03/2022 5:44 AM PLANT MAINTENANCE MECHANIC MAGNESIUM LEVEL Routine 07/03/2022 5:44 AM PLANT MAINTENANCE MECHANIC CK Routine 07/03/2022 5:44 AM PLANT MAINTENANCE MECHANIC COMPREHENSIVE METABOLIC PANEL Routine 07/03/2022 5:44 AM PLANT MAINTENANCE MECHANIC POC GLUCOSE Routine 07/02/2022 7:51 PM PLANT MAINTENANCE MECHANIC POC GLUCOSE Routine 07/02/2022 4:31 PM PLANT MAINTENANCE MECHANIC POC GLUCOSE Routine 07/02/2022 12:06 PM PLANT MAINTENANCE MECHANIC POC GLUCOSE Routine 07/02/2022 7:37 AM PLANT MAINTENANCE MECHANIC POC GLUCOSE Routine 07/01/2022 7:46 PM PLANT MAINTENANCE MECHANIC POC GLUCOSE Routine 07/01/2022 5:00 PM PLANT MAINTENANCE MECHANIC POC GLUCOSE Routine 07/01/2022 12:11 PM PLANT MAINTENANCE MECHANIC POC GLUCOSE Routine 07/01/2022 7:21 AM PLANT MAINTENANCE MECHANIC CBC WITH DIFFERENTIAL Routine 07/01/2022 5:19 AM PLANT MAINTENANCE MECHANIC URIC ACID Routine 07/01/2022 5:19 AM PLANT MAINTENANCE MECHANIC RENAL FUNCTION PANEL Routine 07/01/2022 5:19 AM PLANT MAINTENANCE MECHANIC POC GLUCOSE Routine 06/30/2022 8:10 PM PLANT MAINTENANCE MECHANIC POC GLUCOSE Routine 06/30/2022 4:31 PM PLANT MAINTENANCE MECHANIC URINALYSIS W/REFLEX MICROSCOPIC Routine 06/30/2022 2:55 PM PLANT MAINTENANCE MECHANIC URINE CULTURE Routine 06/30/2022 2:55 PM PLANT MAINTENANCE MECHANIC POC GLUCOSE Routine 06/30/2022 11:42 AM PLANT MAINTENANCE MECHANIC POC GLUCOSE Routine 06/30/2022 7:03 AM PLANT MAINTENANCE MECHANIC HEPATITIS B SURFACE AB, QUANT Routine 06/30/2022 5:46 AM PLANT MAINTENANCE MECHANIC TSH REFLEXIVE Routine 06/30/2022 5:46 AM PLANT MAINTENANCE MECHANIC HEPATITIS B SURFACE ANTIGEN Routine 06/30/2022 5:46 AM PLANT MAINTENANCE MECHANIC CBC WITH DIFFERENTIAL Routine 06/30/2022 5:46 AM PLANT MAINTENANCE MECHANIC VITAMIN D 25 HYDROXY Routine 06/30/2022 5:46 AM PLANT MAINTENANCE MECHANIC VITAMIN B12 LEVEL Routine 06/30/2022 5:4 6 AM PLANT MAINTENANCE MECHANIC COMPREHENSIVE METABOLIC PANEL Routine 06/30/2022 5:46 AM PLANT MAINTENANCE MECHANIC POC GLUCOSE Routine 06/29/2022 9:52 PM PLANT MAINTENANCE MECHANIC POC GLUCOSE Routine 06/29/2022 4:28 PM PLANT MAINTENANCE MECHANIC documented in this encounter Results * EKG 12-LEAD (07/20/2022 1:12 PM PLANT MAINTENANCE MECHANIC) us Avni Clifford [facility] ECG ORDERABLES Final Result Performing Organization Address City/[facility]/ZIP Co de Phone Number [facility] [address] [address] * (ABNORMAL) POC GLUCOSE (07/08/2022 12:12 PM PLANT MAINTENANCE MECHANIC) GLUCOSE POC 272(H) 74 - 99 mg/dL 07/08/2022 12:12 PM PLANT MAINTENANCE MECHANIC [facility] SPECIMEN SOURCE, GLUCOSE POC Whole Blood 07/08/2022 12:12 PM PLANT MAINTENANCE MECHANIC [facility] COMMENT, GLU POC Notified RN/MD 07/08/2022 12:12 PM PLANT MAINTENANCE MECHANIC [facility] Blood, whole 07/08/2022 12:1 2 PM PLANT MAINTENANCE MECHANIC 07/08/2022 12:21 PM PLANT MAINTENANCE MECHANIC us Srinivas Jon MD POINT OF CARE TESTING Final Resu lt Performing Organization Address [facility]/ZIP Co de Phone Number [facility] CLIA # [id number] [place] [address] * POC GLUCOSE (07/08/2022 7:56 AM PLANT MAINTENANCE MECHANIC) GLUCOSE POC 78 74 - 99 mg/dL 07/08/2022 7:56 AM PLANT MAINTENANCE MECHANIC [facility] SPECIMEN SOURCE, GLUCOSE POC Whole Blood 07/08/2022 7:56 AM PLANT MAINTENANCE MECHANIC [facility] Blood, whole 07/08/2022 7:56 AM PLANT MAINTENANCE MECHANIC 07/08/2022 8:06 AM PLANT MAINTENANCE MECHANIC us Srinivas Jon MD POINT OF CARE TESTING Final Resu lt Performing Organization Address [facility]/ZIP Co de Phone Number [facility] CLIA # [id number] [place] [address] * (ABNORMAL) BRAIN NATRIURETIC PEPTIDE, BNP OR PROBNP (07/08/2022 4:53 AM PLANT MAINTENANCE MECHANIC) PROBNP, N TERMINAL 7,021(H) <124 pg/mL 07/08/2022 10:19 AM PLANT MAINTENANCE MECHANIC [facility] [employer] [facility] Comment: Reference values for screening purposes based on patch sander's recommendation: Patients less than 75 years: <125 [...] Venipuncture / Unknown 07/08/2022 4:53 AM PLANT MAINTENANCE MECHANIC 07/08/2022 9:49 AM PLANT MAINTENANCE MECHANIC [employer] CHEMISTRY ORDERABLES F inal Result [facility] [employer] [facility] CLIA# [id number] [address] [place] [address] * C-REACTIVE PROTEIN (07/08/2022 4:53 AM PLANT MAINTENANCE MECHANIC) Pathologist [facility] CRP <3.0 <5.0 mg/L 07/08/2022 10:19 AM PLANT MAINTENANCE MECHANIC [facility] [employer] [facility] Blood Venipuncture / Unknown 07/08/2022 4:53 AM PLANT MAINTENANCE MECHANIC 07/08/2022 9:49 AM PLANT MAINTENANCE MECHANIC [employer] CHEMISTRY ORDERABLES F inal Result [facility] [employer] [facility] CLIA# [id number] [address] [place] [address] * MAGNESIUM LEVEL (07/08/2022 4:53 AM PLANT MAINTENANCE MECHANIC) MAGNESIUM 1.7 1.6 - 2.6 mg/dL 07/08/2022 10:19 AM [facility] [employer] SERVICES [facility] Blood Venipuncture / Unknown 07/08/2022 4:53 AM PLANT MAINTENANCE MECHANIC 07/08/2022 9:49 AM PLANT MAINTENANCE MECHANIC Avni Clifford [facility] CHEMISTRY ORDERABLES F inal Result [facility] [employer] SERVICES [facility] CLIA# [id number] [address] [facility] [place] [address] * (ABNORMAL) COMPREHENSIVE METABOLIC PANEL (07/08/2022 4:53 AM PLANT MAINTENANCE MECHANIC) SODIUM 139 136 - 145 mmol/L 07/08/2022 10:21 AM [facility] [employer] LABORATORY SERVICES [facility] POTASSIUM 3.6 3.5 - 5.0 mmol/L 07/08/2022 10:21 AM [facility] [employer] SERVICES [facility]. [place] CHLORIDE 99 98 - 107 mmol/L 07/08/2022 10:21 AM [facility] [employer] SERVICES - . [place] CO2 28 22 - 29 mmol/L 07/08/2022 10:21 AM [facility] [employer] [facility] - . [place] CALCIUM 9.4 8.6 - 10.2 mg/dL 07/08/2022 10:21 AM [facility] [employer] LABORATORY SERVICES [facility] [place] BUN 40(H) 6 - 20 mg/dL 07/08/2022 10:21 AM [facility] [employer] SERVICES - [facility] [place] CREATININE 6.94(H) 0.67 - 1.17 mg/dL 07/08/2022 10:21 AM [facility] [employer] LABORATORY SERVICES - . [place] GLUCOSE 82 74 - 99 mg/dL 07/08/2022 10:21 AM [facility] [employer] SERVICES [facility] TOTAL PROTEIN 6.1(L) 6.7 - 8.6 g/dL 07/08/2022 10:21 AM [facility] [employer] SERVICES - . [facility] ALBUMIN 3.2(L) 3.5 - 5.2 g/dL 07/08/2022 10:21 AM [facility] BILIRUBIN TOTAL 0.3 0.3 - 1.2 mg/dL 07/08/2022 10:21 AM [facility] ALKALINE PHOSPHATASE 99 40 - 129 U/L 07/08/2022 10:21 AM [facility] AST 49(H) <41 U/L 07/08/2022 10:21 AM [facility] ALT 54(H) <42 U/L 07/08/2022 10:21 AM [facility] GFR 9(L) >=60 mL/min/1.7 3 sq meter 07/08/2022 10:21 AM [facility] Comment:eGFR calculated with 2020 CKD-EPI equation. Vegetarian diet, extremely high or low muscle mass, and may affect results. Cystatin C with Glomerular Filtration Rate is a suitable alternative for these patients. ANION GAP 12 8 - 16 mmol/L 07/08/2022 10:21 AM [facility] Blood Venipuncture / Unknown 07/08/2022 4:53 AM PLANT MAINTENANCE MECHANIC 07/08/2022 9:49 AM [facility] - 07/08/2022 10:21 AM PLANT MAINTENANCE MECHANIC Samples containing indocyanine green cause interferences on Total and/or Direct Bilirubin and must not be measured. [employer] [facility] CHEMISTRY ORDERABLES F inal Result [facility]# [id number] [address] [facility] [address] * (ABNORMAL) CBC WITH DIFFERENTIAL (07/08/2022 4:53 AM PLANT MAINTENANCE MECHANIC) WBC 3.6(L) 4.0 - 9.8 K/uL 07/08/2022 10:12 AM [facility] RBC 3.03(L) 4.50 - 5.40 M/uL 07/08/2022 10:12 AM [facility] HEMOGLOBIN 9.2(L) 13.6 - 16.5 g/dL 07/08/2022 10:12 AM [employer] LABORATORY SERVICES - [facility] [place] HEMATOCRIT 28.5(L) 40.0 - 48.0 % 07/08/2022 10:12 AM [facility]AT[facility] SERVICES - [facility] [place] MCV 94.1 82.0 - 99.0 fL 07/08/2022 10:12 AM [facility] SERVICES - [facility] MCH 30.4 27.2 - 32.6 pg 07/08/2022 10:12 AM [employer] [facility]ATORY SERVICES - [facility] MCHC 32.3 31.5 - 35.5 g/dL 07/08/2022 10:12 AM [employer] [facility]AT[facility] SERVICES - [facility] RDW 15.5(H) 11.5 - 14.5 % 07/08/2022 10:12 AM [facility] - [facility] RDW-STDEV 53.3(H) 37.1 - 48.7 fL 07/08/2022 10:12 AM [facility] - [facility] [place] PLATELETS 247 140 - 350 K/uL 07/08/2022 10:12 AM [facility] SERVICES - [facility] MPV 9.5 9.3 - 12.4 fL 07/08/2022 10:12 AM [facility] - [facility] NEUTROPHILS 40 % 07/08/2022 10:12 AM [facility] [facility] - [facility] LYMPHOCYTES 40 % 07/08/2022 10:12 AM [facility] [facility] - [facility] MONOCYTES 14 % 07/08/2022 10:12 AM [facility] - [facility] EOSINOPHILS 5 % 07/08/2022 10:12 AM [facility] - [facility] BASOPHILS 1 % 07/08/2022 10:12 AM [facility] - [facility] IMMATURE GRANULOCYTES 0 % 07/08/2022 10:12 AM [facility] SERVICES - [facility] [place] NEUTROPHIL ABSOLUTE 1.46(L) 1.90 - 7.00 K/uL 07/08/2022 10:12 AM [facility]ORATORY SERVICES - [facility] LYMPHOCYTE ABSOLUTE 1.43 0.70 - 4.50 K/uL 07/08/2022 10:12 AM [facility] SERVICES - [facility] MONOCYTE ABSOLUTE 0.52 0.10 - 1.30 K/uL 07/08/2022 10:12 AM PLANT MAINTENANCE MECHANIC [facility] LABORATORY SERVICES - [facility] EOSINOPHIL ABSOLUTE 0.17 0.00 - 0.70 K/uL 07/08/2022 10:12 AM PLANT MAINTENANCE MECHANIC [facility] LABORATORY SERVICES - [facility] [place] BASOPHILS ABSOLUTE 0.03 0.00 - 0.20 K/uL 07/08/2022 10:12 AM PLANT MAINTENANCE MECHANIC [facility] LABORATORY SERVICES - [facility] IMMATURE GRANULOCYTES ABSOLUTE 0.01 0.00 - 0.03 K/uL 07/08/2022 10:12 AM PLANT MAINTENANCE MECHANIC [facility] LABORATORY SERVICES - [facility] Blood Venipuncture / Unknown 07/08/2022 4:53 AM PLANT MAINTENANCE MECHANIC 07/08/2022 9:49 AM PLANT MAINTENANCE MECHANIC us [facility] [place] [facility] ORDERABLES Final Result [facility] LABORATORY [facility] CLIA# [id number] [address] [place] [address] * (ABNORMAL) POC GLUCOSE (07/07/2022 8:27 PM PLANT MAINTENANCE MECHANIC) GLUCOSE POC 246(H) 74 - 99 mg/dL 07/07/2022 8:27 PM [facility] SPECIMEN SOURCE, GLUCOSE POC Whole Blood 07/07/2022 8:27 PM [facility] Blood, whole 07/07/2022 8:27 PM PLANT MAINTENANCE MECHANIC 07/07/2022 8:36 PM PLANT MAINTENANCE MECHANIC us Srinivas Jon MD POINT OF CARE TESTING Final Resu lt [facility] CLIA # [id number] [place] [address] * (ABNORMAL) POC GLUCOSE (07/07/2022 4:58 PM PLANT MAINTENANCE MECHANIC) GLUCOSE POC 332(H) 74 - 99 mg/dL 07/07/2022 4:58 PM PLANT MAINTENANCE MECHANIC [facility] SPECIMEN SOURCE, GLUCOSE POC Whole Blood 07/07/2022 4:58 PM PLANT MAINTENANCE MECHANIC [facility] COMMENT, GLU POC Notified RN/MD 07/07/2022 4:58 PM PLANT MAINTENANCE MECHANIC [facility] Blood, whole 07/07/2022 4:58 PM PLANT MAINTENANCE MECHANIC 07/07/2022 5:11 PM PLANT MAINTENANCE MECHANIC us Srinivas Jon MD POINT OF CARE TESTING Final Resu lt Performing Organization Address City/[facility]/ZIP Co de Phone Number [facility] CLIA # [id number] [place] [address] * (ABNORMAL) POC GLUCOSE (07/07/2022 11:38 AM PLANT MAINTENANCE MECHANIC) GLUCOSE POC 270(H) 74 - 99 mg/dL 07/07/2022 11:38 AM PLANT MAINTENANCE MECHANIC [facility] SPECIMEN SOURCE, GLUCOSE POC Whole Blood 07/07/2022 11:38 AM PLANT MAINTENANCE MECHANIC [facility] Blood, whole 07/07/2022 11:3 8 AM PLANT MAINTENANCE MECHANIC 07/07/2022 11:53 AM PLANT MAINTENANCE MECHANIC us Srinivas Jon MD POINT OF CARE TESTING Final Resu lt Performing Organization Address [facility] Co de Phone Number [facility] CLIA # [id number] [place] [address] * (ABNORMAL) POC GLUCOSE (07/07/2022 7:29 AM PLANT MAINTENANCE MECHANIC) GLUCOSE POC 119(H) 74 - 99 mg/dL 07/07/2022 7:29 AM PLANT MAINTENANCE MECHANIC [facility] SPECIMEN SOURCE, GLUCOSE POC Whole Blood 07/07/2022 7:29 AM PLANT MAINTENANCE MECHANIC [facility] Blood, whole 07/07/2022 7:29 AM PLANT MAINTENANCE MECHANIC 07/07/2022 7:54 AM PLANT MAINTENANCE MECHANIC us Srinivas Jon MD POINT OF CARE TESTING Final Resu lt [facility] CLIA # [id number] [place] [address] * (ABNORMAL) POC GLUCOSE (07/06/2022 8:10 PM PLANT MAINTENANCE MECHANIC) GLUCOSE POC 341(H) 74 - 99 mg/dL 07/06/2022 8:10 PM PLANT MAINTENANCE MECHANIC [facility] SPECIMEN SOURCE, GLUCOSE POC Whole Blood 07/06/2022 8:10 PM PLANT MAINTENANCE MECHANIC [facility] COMMENT, GLU POC Notified RN/MD 07/06/2022 8:10 PM PLANT MAINTENANCE MECHANIC [facility] Blood, whole 07/06/2022 8:10 PM PLANT MAINTENANCE MECHANIC 07/06/2022 8:39 PM PLANT MAINTENANCE MECHANIC us Srinivas Jon MD POINT OF CARE TESTING Final Resu lt [facility] CLIA # [id number] [place] [address] * (ABNORMAL) POC GLUCOSE (07/06/2022 4:44 PM PLANT MAINTENANCE MECHANIC) GLUCOSE POC 257(H) 74 - 99 mg/dL 07/06/2022 4:44 PM [facility] SPECIMEN SOURCE, GLUCOSE POC Whole Blood 07/06/2022 4:44 PM PLANT MAINTENANCE MECHANIC [facility] Blood, whole 07/06/2022 4:44 PM PLANT MAINTENANCE MECHANIC 07/06/2022 5:01 PM PLANT MAINTENANCE MECHANIC us Srinivas Jon MD POINT OF CARE TESTING Final Resu lt [facility] CLIA # [id number] [place] [address] * (ABNORMAL) POC GLUCOSE (07/06/2022 12:21 PM PLANT MAINTENANCE MECHANIC) GLUCOSE POC 251(H) 74 - 99 mg/dL 07/06/2022 12:21 PM PLANT MAINTENANCE MECHANIC [facility] SPECIMEN SOURCE, GLUCOSE POC Whole Blood 07/06/2022 12:21 PM PLANT MAINTENANCE MECHANIC [facility] Blood, whole 07/06/2022 12:2 1 PM PLANT MAINTENANCE MECHANIC 07/06/2022 12:33 PM PLANT MAINTENANCE MECHANIC us Srinivas Jon MD POINT OF CARE TESTING Final Resu lt [facility] CLIA # [id number] [place] [address] * POC GLUCOSE (07/06/2022 7:21 AM PLANT MAINTENANCE MECHANIC) GLUCOSE POC 80 74 - 99 mg/dL 07/06/2022 7:21 AM [facility] SPECIMEN SOURCE, GLUCOSE POC Whole Blood 07/06/2022 7:21 AM [facility] Blood, whole 07/06/2022 7:21 AM PLANT MAINTENANCE MECHANIC 07/06/2022 7:57 AM PLANT MAINTENANCE MECHANIC us Srinivas Jon MD POINT OF CARE TESTING Final Resu lt [facility] CLIA # [id number] [place] [address] * (ABNORMAL) POC GLUCOSE (07/05/2022 8:19 PM PLANT MAINTENANCE MECHANIC) GLUCOSE POC 340(H) 74 - 99 mg/dL 07/05/2022 8:19 PM PLANT MAINTENANCE MECHANIC [facility] SPECIMEN SOURCE, GLUCOSE POC Whole Blood 07/05/2022 8:19 PM PLANT MAINTENANCE MECHANIC [facility] COMMENT, GLU POC Notified RN/MD 07/05/2022 8:19 PM [facility] Blood, whole 07/05/2022 8:19 PM PLANT MAINTENANCE MECHANIC 07/05/2022 9:22 PM PLANT MAINTENANCE MECHANIC us Srinivas Jon MD POINT OF CARE TESTING Final Resu lt [facility] CLIA # [id number] [place] [address] * (ABNORMAL) POC GLUCOSE (07/05/2022 4:26 PM PLANT MAINTENANCE MECHANIC) GLUCOSE POC 352(H) 74 - 99 mg/dL 07/05/2022 4:26 PM PLANT MAINTENANCE MECHANIC [facility] SPECIMEN SOURCE, GLUCOSE POC Whole Blood 07/05/2022 4:26 PM PLANT MAINTENANCE MECHANIC [facility] Blood, whole 07/05/2022 4:26 PM PLANT MAINTENANCE MECHANIC 07/05/2022 4:37 PM PLANT MAINTENANCE MECHANIC us Srinivas Jon MD POINT OF CARE TESTING Final Resu lt [facility] CLIA # [id number] [place] [address] * (ABNORMAL) POC GLUCOSE (07/05/2022 11:30 AM PLANT MAINTENANCE MECHANIC) GLUCOSE POC 286(H) 74 - 99 mg/dL 07/05/2022 11:30 AM PLANT MAINTENANCE MECHANIC [facility] SPECIMEN SOURCE, GLUCOSE POC Whole Blood 07/05/2022 11:30 AM PLANT MAINTENANCE MECHANIC [facility] Blood, whole 07/05/2022 11:3 0 AM PLANT MAINTENANCE MECHANIC 07/05/2022 11:48 AM PLANT MAINTENANCE MECHANIC us Srinivas Jon MD POINT OF CARE TESTING Final Resu lt [facility] CLIA # [id number] [place] [address] * (ABNORMAL) POC GLUCOSE (07/05/2022 7:31 AM PLANT MAINTENANCE MECHANIC) GLUCOSE POC 124(H) 74 - 99 mg/dL 07/05/2022 7:31 AM PL[employer] MA[employer]TE[employer] [facility] SPECIMEN SOURCE, GLUCOSE POC Whole Blood 07/05/2022 7:31 AM [employer] MA[employer] [facility] Blood, whole 07/05/2022 7:31 AM PLANT MAINTENANCE MECHANIC 07/05/2022 7:42 AM PLANT MAINTENANCE MECHANIC us Srinivas Jon MD POINT OF CARE TESTING Final Resu lt Performing Organization Address City/[facility]/ZIP Co de Phone Number [facility] CLIA # [id number] [place] [address] * (ABNORMAL) POC GLUCOSE (07/04/2022 9:01 PM PL[employer] MAINTENANCE MECHANIC) GLUCOSE POC 330(H) 74 - 99 mg/dL 07/04/2022 9:01 PM PL[employer] MA[employer]TE[employer]CH[employer]IC [facility] SPECIMEN SOURCE, GLUCOSE POC Whole Blood 07/04/2022 9:01 PM [employer] MA[employer] [facility] COMMENT, GLU POC Notified RN/MD 07/04/2022 9:01 PM [employer] MA[employer] [facility] Blood, whole 07/04/2022 9:01 PM [employer] MA[employer]TE[employer]NCE MECHANIC 07/04/2022 9:19 PM PL[employer] MAINTENANCE MECHANIC us Srinivas Jon MD POINT OF CARE TESTING Final Resu Performing Organization Address [facility]/ZIP Co de Phone Number [facility] CLIA # [id number] [place] [address] * (ABNORMAL) POC GLUCOSE (07/04/2022 4:49 PM PLANT MAINTENANCE MECHANIC) GLUCOSE POC 294(H) 74 - 99 mg/dL 07/04/2022 4:49 PM PL[employer] MA[employer]TE[employer]CHANIC [facility] SPECIMEN SOURCE, GLUCOSE POC Whole Blood 07/04/2022 4:49 PM PL[employer] MA[employer]TE[employer]CH[employer]IC [facility] COMMENT, GLU POC Notified RN/MD 07/04/2022 4:49 PM [facility] Blood, whole 07/04/2022 4:49 PM PL[employer] MA[employer]TENANCE MECHANIC 07/04/2022 5:05 PM PLANT MAINTENANCE MECHANIC us Srinivas Jon MD POINT OF CARE TESTING Final Resu lt [facility] CLIA # [id number] [place] [address] * (ABNORMAL) POC GLUCOSE (07/04/2022 11:32 AM PLANT MAINTENANCE MECHANIC) GLUCOSE POC 266(H) 74 - 99 mg/dL 07/04/2022 11:32 AM PL[employer] MAINTENA[employer]CHANIC [facility] SPECIMEN SOURCE, GLUCOSE POC Whole Blood 07/04/2022 11:32 AM PL[employer]TE[employer] [facility] COMMENT, GLU POC Notified RN/MD 07/04/2022 11:32 AM PL[employer] MA[employer]TE[employer]IC [facility] Blood, whole 07/04/2022 11:3 2 AM [employer] MA[employer]TENANCE MECHANIC 07/04/2022 11:48 AM PLANT MAINTENANCE MECHANIC us Srinivas Jon MD POINT OF CARE TESTING [id number] [place] [address] * (ABNORMAL) BRAIN NATRIURETIC PEPTIDE, BNP OR PROBNP (07/04/2022 11:09 AM PLANT MAINTENANCE MECHANIC) PROBNP, N TERMINAL 4,687(H) <124 pg/mL 07/04/2022 1:03 PM [facility] Comment: Reference values for screening purposes based on patch sander's recommendation: Patients less than 75 years: <125 [...] Venipuncture / Unknown 07/04/2022 11:09 AM PLANT MAINTENANCE MECHANIC 07/04/2022 12:22 PM PLANT MAINTENANCE MECHANIC us Avni Stoner [email or web address] CHEMISTRY ORDERABLES F inal Result Performing Organization Address [facility] Co de Phone Number [facility] [employer] [facility]# [id number] [address] [place] [address] * (ABNORMAL) C-REACTIVE PROTEIN (07/04/2022 11:09 AM PLANT MAINTENANCE MECHANIC) CRP 5.0(H) <5.0 mg/L 07/04/2022 1:03 PM PLANT MAINTE[employer] MECHANIC [facility] [employer] [facility] Blood Venipuncture / Unknown 07/04/2022 11:09 AM PLANT MAINTENANCE MECHANIC 07/04/2022 12:22 PM PLANT MAINTENANCE MECHANIC Avni Herbie [email or web address] CHEMISTRY ORDERABLES F inal Result Performing Organization Address [facility] Phone Number [facility] [employer] [facility]# [id number] [address] [place] [address] * MAGNESIUM LEVEL (07/04/2022 11:09 AM PLANT MAINTENANCE MECHANIC) Pathologist [facility] MAGNESIUM 1.8 1.6 - 2.6 mg/dL 07/04/2022 1:03 PM PLANT MAINTENANCE MECHANIC [facility] [employer] [facility] Blood Venipuncture / Unknown 07/04/2022 11:09 AM PLANT MAINTENANCE MECHANIC 07/04/2022 12:22 PM PLANT MAINTENANCE MECHANIC Avni Stoner Gridle.in CHEMISTRY ORDERABLES F inal Result Performing Organization Address [facility] Co de Phone Number [facility] [employer] [facility]# [id number] [address] [place] [address] * (ABNORMAL) COMPREHENSIVE METABOLIC PANEL (07/04/2022 11:09 AM PLANT MAINTENANCE MECHANIC) SODIUM 134(L) 136 - 145 mmol/L 07/04/2022 1:04 PM PLANT MAINTENANCE MECHANIC [facility] [employer] [facility] POTASSIUM 4.7 3.5 - 5.0 mmol/L 07/04/2022 1:04 PM [facility] LAB[facility] CHLORIDE 95(L) 98 - 107 mmol/L 07/04/2022 1:04 PM [facility] [employer] LABORATORY [facility] CO2 24 22 - 29 mmol/L 07/04/2022 1:04 PM [facility] LAB[facility] CALCIUM 9.1 8.6 - 10.2 mg/dL 07/04/2022 1:04 PM [facility] LABOR[facility]ORY [facility] BUN 49(H) 6 - 20 mg/dL 07/04/2022 1:04 PM [facility] [employer] LABORATORY [facility] CREATININE 8.63(H) 0.67 - 1.17 mg/dL 07/04/2022 1:04 PM [facility] [employer] LABORATORY [facility] GLUCOSE 304(H) 74 - 99 mg/dL 07/04/2022 1:04 PM [facility] LAB[facility] TOTAL PROTEIN 6.3(L) 6.7 - 8.6 g/dL 07/04/2022 1:04 PM [facility] [employer] LABORATORY [facility] ALBUMIN 3.1(L) 3.5 - 5.2 g/dL 07/04/2022 1:04 PM [facility] [employer] LABORATORY [facility] BILIRUBIN TOTAL 0.4 0.3 - 1.2 mg/dL 07/04/2022 1:04 PM [facility] LABOR[facility] ALKALINE PHOSPHATASE 107 40 - 129 U/L 07/04/2022 1:04 PM [facility] LAB[facility] AST 48(H) <41 U/L 07/04/2022 1:04 PM [facility] [employer] LABORATORY [facility] ALT 44(H) <42 U/L 07/04/2022 1:04 PM [facility] [employer] LABORATORY [facility] GFR 7(L) >=60 mL/min/1.7 3 sq meter 07/04/2022 1:04 PM [facility] [employer] [facility] Comment:eGFR calculated with 2020 CKD-EPI equation. Vegetarian diet, extremely high or low muscle mass, and may affect results. Cystatin C with Glomerular Filtration Rate is a suitable alternative for these patients. ANION GAP 15 8 - 16 mmol/L 07/04/2022 1:04 PM [facility] LABORATORY [facility] Blood Venipuncture / Unknown 07/04/2022 11:09 AM PLANT MAINTENANCE MECHANIC 07/04/2022 12:22 PM PLANT MAINTENANCE MECHANIC Narrative [facility] - 07/04/2022 1:04 PM PLANT MAINTENANCE MECHANIC Samples containing indocyanine green cause interferences on Total and/or Direct Bilirubin and must not be measured. Avni Clifford [facility] CHEMISTRY ORDERABLES F inal Result [facility] [employer] [facility] CLIA# [id number] [address] [place] [address] * (ABNORMAL) CBC WITH DIFFERENTIAL (07/04/2022 11:09 AM PLANT MAINTENANCE MECHANIC) [facility] WBC 4.1 4.0 - 9.8 K/uL 07/04/2022 12:29 PM [facility] [employer] [facility] RBC 2.96(L) 4.50 - 5.40 M/uL 07/04/2022 12:29 PM [facility] [employer] [facility] HEMOGLOBIN 8.9(L) 13.6 - 16.5 g/dL 07/04/2022 12:29 PM [facility] [employer] [facility] HEMATOCRIT 28.1(L) 40.0 - 48.0 % 07/04/2022 12:29 PM [facility] [employer] [facility] MCV 94.9 82.0 - 99.0 fL 07/04/2022 12:29 PM [facility] [employer] [facility] MCH 30.1 27.2 - 32.6 pg 07/04/2022 12:29 PM [facility] [employer] [facility] MCHC 31.7 31.5 - 35.5 g/dL 07/04/2022 12:29 PM [facility] [employer] [facility] RDW 15.8(H) 11.5 - 14.5 % 07/04/2022 12:29 PM [facility] [employer] [facility] RDW-STDEV 54.1(H) 37.1 - 48.7 fL 07/04/2022 12:29 PM [facility] LABORATORY SERVICES - [facility] PLATELETS 323 140 - 350 K/uL 07/04/2022 12:29 PM [facility] [employer] LABORATORY SERVICES - [facility] MPV 9.1(L) 9.3 - 12.4 fL 07/04/2022 12:29 PM [facility] SERVICES - [facility] NEUTROPHILS 55 % 07/04/2022 12:29 PM [facility] [employer] SERVICES - [facility] LYMPHOCYTES 27 % 07/04/2022 12:29 PM [facility] [employer] SERVICES - [facility] MONOCYTES 13 % 07/04/2022 12:29 PM [facility] LABORATORY SERVICES - [facility] EOSINOPHILS 3 % 07/04/2022 12:29 PM [facility] [employer] SERVICES - [facility] BASOPHILS 1 % 07/04/2022 12:29 PM [facility] [employer] SERVICES - [facility] IMMATURE GRANULOCYTES 1 % 07/04/2022 12:29 PM [facility] [employer] SERVICES - [facility] Comment:IG (Immature Granulo cyte) count includes Metamyelocytes, Myelocytes, and Promyelocytes NEUTROPHIL ABSOLUTE 2.29 1.90 - 7.00 K/uL 07/04/2022 12:29 PM [facility] [employer] SERVICES - [facility] LYMPHOCYTE ABSOLUTE 1.13 0.70 - 4.50 K/uL 07/04/2022 12:29 PM [facility] [employer] SERVICES - [facility] MONOCYTE ABSOLUTE 0.53 0.10 - 1.30 K/uL 07/04/2022 12:29 PM [facility] EOSINOPHIL ABSOLUTE 0.14 0.00 - 0.70 K/uL 07/04/2022 12:29 PM [facility] [employer] SERVICES - [facility] BASOPHILS ABSOLUTE 0.03 0.00 - 0.20 K/uL 07/04/2022 12:29 PM [facility] [employer] SERVICES - [facility] IMMATURE GRANULOCYTES ABSOLUTE 0.02 0.00 - 0.03 K/uL 07/04/2022 12:29 PM [facility] [employer] SERVICES - [facility] Blood Venipuncture / Unknown 07/04/2022 11:09 AM PLANT MAINTENANCE MECHANIC 07/04/2022 12:22 PM PLANT MAINTENANCE MECHANIC Avni Clifford [facility] HEMATOLOGY ORDERABLES Final Result [facility] CLIA# [id number] [address] [place] [address] * POC GLUCOSE (07/04/2022 7:17 AM PLANT MAINTENANCE MECHANIC) GLUCOSE POC 89 74 - 99 mg/dL 07/04/2022 7:17 AM PLANT MAINTENANCE MECHANIC [facility] SPECIMEN SOURCE, GLUCOSE POC Whole Blood 07/04/2022 7:17 AM PLANT MAINTENANCE MECHANIC [facility] COMMENT, GLU POC Notified RN/MD 07/04/2022 7:17 AM PLANT MAINTENANCE MECHANIC [facility] Blood, whole 07/04/2022 7:17 AM PLANT MAINTENANCE MECHANIC 07/04/2022 7:39 AM PLANT MAINTENANCE MECHANIC us Srinivas Jon MD POINT OF CARE TESTING Final Resu lt [facility] CLIA # [id number] [place] [address] * (ABNORMAL) POC GLUCOSE (07/03/2022 8:09 PM PLANT MAINTENANCE MECHANIC) GLUCOSE POC 271(H) 74 - 99 mg/dL 07/03/2022 8:09 PM [facility] SPECIMEN SOURCE, GLUCOSE POC Whole Blood 07/03/2022 8:09 PM PLANT MAINTENANCE MECHANIC [facility] Blood, whole 07/03/2022 8:09 PM PLANT MAINTENANCE MECHANIC 07/03/2022 8:24 PM PLANT MAINTENANCE MECHANIC us Srinivas Jon MD POINT OF CARE TESTING Final Resu lt [facility] CLIA # [id number] [address] [place] [address] * (ABNORMAL) POC GLUCOSE (07/03/2022 4:31 PM PLANT MAINTENANCE MECHANIC) GLUCOSE POC 368(H) 74 - 99 mg/dL 07/03/2022 4:31 PM PLANT MAINTENANCE MECHANIC [facility] SPECIMEN SOURCE, GLUCOSE POC Whole Blood 07/03/2022 4:31 PM [facility] COMMENT, GLU POC Notified RN/MD 07/03/2022 4:31 PM [facility] Blood, whole 07/03/2022 4:31 PM PLANT MAINTENANCE MECHANIC 07/03/2022 4:45 PM PLANT MAINTENANCE MECHANIC us Srinivas Jon MD POINT OF CARE TESTING Final Resu lt Performing Organization Address City/[facility]/ZIP Co de Phone Number [facility] CLIA # [id number] [place] [address] * (ABNORMAL) POC GLUCOSE (07/03/2022 11:22 AM PLANT MAINTENANCE MECHANIC) GLUCOSE POC 316(H) 74 - 99 mg/dL 07/03/2022 11:22 AM [facility] SPECIMEN SOURCE, GLUCOSE POC Whole Blood 07/03/2022 11:22 AM [facility] COMMENT, GLU POC Notified RN/MD 07/03/2022 11:22 AM [facility] Blood, whole 07/03/2022 11:2 2 AM PLANT MAINTENANCE MECHANIC 07/03/2022 11:35 AM PLANT MAINTENANCE MECHANIC us Srinivas Jon MD POINT OF CARE TESTING Final Resu lt Performing Organization Address [facility] Co de Phone Number [facility] CLIA # [id number] [address] [place] [address] * XR CHEST PA OR AP 1 VW (07/03/2022 9:35 AM PLANT MAINTENANCE MECHANIC) Anatomical Region Laterality Modality Chest Other us Avni Clifford DMS DIAGNOSTIC IMAGING ORD ERABLES Final Result * POC GLUCOSE (07/03/2022 7:35 AM PLANT MAINTENANCE MECHANIC) GLUCOSE POC 80 74 - 99 mg/dL 07/03/2022 7:35 AM [facility] SPECIMEN SOURCE, GLUCOSE POC Whole Blood 07/03/2022 7:35 AM PLANT MAINTENANCE MECHANIC [facility] Blood, whole 07/03/2022 7:35 AM PLANT MAINTENANCE MECHANIC 07/03/2022 7:43 AM PLANT MAINTENANCE MECHANIC us Srinivas Jon MD POINT OF CARE TESTING Final Resu lt Performing Organization Address City/[facility]/ZIP Co de Phone Number [facility] CLIA # [id number] [address] [place] [address] * CK (07/03/2022 5:44 AM PLANT MAINTENANCE MECHANIC) CK 37 20 - 200 U/L 07/03/2022 9:02 AM PLANT MAINTENANCE MECHANIC [facility] LABORATORY [facility] Blood Venipuncture / Unknown 07/03/2022 5:44 AM PLANT MAINTENANCE MECHANIC 07/03/2022 8:17 AM PLANT MAINTENANCE MECHANIC us Jasmin Bradley MD CHEMISTRY ORDERABLES Final Resul t Performing Organization Address City/[facility]/ZIP Co de Phone Number [facility] [employer] [facility] CLIA# [id number] [address] [place] [address] * (ABNORMAL) BRAIN NATRIURETIC PEPTIDE, BNP OR PROBNP (07/03/2022 5:44 AM PLANT MAINTENANCE MECHANIC) PROBNP, N TERMINAL 5,888(H) <124 pg/mL 07/03/2022 9:02 AM PLANT MAINTENANCE MECHANIC [facility] LABORATORY [facility] Comment: Reference values for screening purposes based on patch sander's recommendation: Patients less than 75 years: <125 [...] Venipuncture / Unknown 07/03/2022 5:44 AM PLANT MAINTENANCE MECHANIC 07/03/2022 8:17 AM PLANT MAINTENANCE MECHANIC Avni Herbie Faulk[employer] CHEMISTRY ORDERABLES F inal Result Performing Organization Address [facility] de Phone Number [facility]# [id number] [address] [place] [address] * (ABNORMAL) C-REACTIVE PROTEIN (07/03/2022 5:44 AM PLANT MAINTENANCE MECHANIC) Pathologist [facility] CRP 6.3(H) <5.0 mg/L 07/03/2022 9:02 AM PLANT MAINTENANCE MECHANIC [facility] [employer] [facility] Blood Venipuncture / Unknown 07/03/2022 5:44 AM PLANT MAINTENANCE MECHANIC 07/03/2022 8:17 AM PLANT MAINTENANCE MECHANIC Avni Clifford Spotie CHEMISTRY ORDERABLES F inal Result Performing Organization Address [facility] Phone Number [facility] [employer] [facility] CLCA# [id number] [address] [place] [address] * MAGNESIUM LEVEL (07/03/2022 5:44 AM PLANT MAINTENANCE MECHANIC) Pathologist [facility] MAGNESIUM 2.3 1.6 - 2.6 mg/dL 07/03/2022 9:02 AM PLANT MAINTENANCE MECHANIC [facility] [employer] [facility] Blood Venipuncture / Unknown 07/03/2022 5:44 AM PLANT MAINTENANCE MECHANIC 07/03/2022 8:17 AM PLANT MAINTENANCE MECHANIC Avni Herbie [employer]ulk[employer] CHEMISTRY ORDERABLES F inal Result Performing Organization Address City/[facility] Co de Phone Number [facility] [employer] [facility]# [id number] [address] [place] [address] * (ABNORMAL) COMPREHENSIVE METABOLIC PANEL (07/03/2022 5:44 AM PLANT MAINTENANCE MECHANIC) SODIUM 137 136 - 145 mmol/L 07/03/2022 9:16 AM [facility] [employer] LABORATORY SERVICES - [facility] POTASSIUM 3.4(L) 3.5 - 5.0 mmol/L 07/03/2022 9:16 AM [facility] [employer] LABORATORY SERVICES - [facility] CHLORIDE 96(L) 98 - 107 mmol/L 07/03/2022 9:16 AM [facility] [employer] LABORATORY SERVICES - [facility] CO2 25 22 - 29 mmol/L 07/03/2022 9:16 AM [facility] [employer] LABORATORY SERVICES - [facility] CALCIUM 9.4 8.6 - 10.2 mg/dL 07/03/2022 9:16 AM [facility] [employer] LABORATORY SERVICES - [facility] BUN 46(H) 6 - 20 mg/dL 07/03/2022 9:16 AM [facility] [employer] LABORATORY SERVICES - [facility] CREATININE 8.80(H) 0.67 - 1.17 mg/dL 07/03/2022 9:16 AM [facility] [employer] LABORATORY SERVICES - . [place] GLUCOSE 113(H) 74 - 99 mg/dL 07/03/2022 9:16 AM [facility] [employer] LABORATORY SERVICES - . [place] TOTAL PROTEIN 6.3(L) 6.7 - 8.6 g/dL 07/03/2022 9:16 AM [facility] [employer] LABORATORY SERVICES - . [place] ALBUMIN 3.1(L) 3.5 - 5.2 g/dL 07/03/2022 9:16 AM [facility] [employer] LABORATORY SERVICES - [facility] BILIRUBIN TOTAL 0.3 0.3 - 1.2 mg/dL 07/03/2022 9:16 AM [facility] [employer] LABORATORY SERVICES - . [place] ALKALINE PHOSPHATASE 105 40 - 129 U/L 07/03/2022 9:16 AM [facility] [employer] LABORATORY SERVICES - [facility] AST 38 <41 U/L 07/03/2022 9:16 AM PLANT MAINTENANCE MECHANIC [employer] LABORATORY SERVICES - . [place] ALT 38 <42 U/L 07/03/2022 9:16 AM PLANT MAINTENANCE MECHANIC [employer] LABORATORY SERVICES - . [place] GFR 7(L) >=60 mL/min/1.7 3 sq meter 07/03/2022 9:16 AM PLANT MAINTENANCE MECHANIC [employer] LABORATORY SERVICES - . [place] Comment:eGFR calculated with 2020 CKD-EPI equation. Vegetarian diet, extremely high or low muscle mass, and may affect results. Cystatin C with Glomerular Filtration Rate is a suitable alternative for these patients. ANION GAP 16 8 - 16 mmol/L 07/03/2022 9:16 AM [facility] [employer] [facility]. [facility] Blood Venipuncture / Unknown 07/03/2022 5:44 AM PLANT MAINTENANCE MECHANIC 07/03/2022 8:17 AM PLANT MAINTENANCE MECHANIC [facility] [employer] LABORATORY SERVICES - [facility] - 07/03/2022 9:16 AM PLANT MAINTENANCE MECHANIC Samples containing indocyanine green cause interferences on Total and/or Direct Bilirubin and must not be measured. Avni Clifford [facility] CHEMISTRY ORDERABLES F inal Result [facility] [employer] [facility] CLIA# [id number] [address] [place] [address] * (ABNORMAL) CBC WITH DIFFERENTIAL (07/03/2022 5:44 AM PLANT MAINTENANCE MECHANIC) Pathologist [facility] WBC 3.7(L) 4.0 - 9.8 K/uL 07/03/2022 8:34 AM [facility] [employer] [facility] RBC 2.95(L) 4.50 - 5.40 M/uL 07/03/2022 8:34 AM [facility] [employer] [facility] HEMOGLOBIN 8.8(L) 13.6 - 16.5 g/dL 07/03/2022 8:34 AM [facility] [employer] [facility] HEMATOCRIT 27.7(L) 40.0 - 48.0 % 07/03/2022 8:34 AM [facility] [employer] [facility] MCV 93.9 82.0 - 99.0 fL 07/03/2022 8:34 AM [facility] [employer] [facility] MCH 29.8 27.2 - 32.6 pg 07/03/2022 8:34 AM [facility] [employer] [facility]. [facility] MCHC 31.8 31.5 - 35.5 g/dL 07/03/2022 8:34 AM [facility] [employer] [facility]. [facility] RDW 16.0(H) 11.5 - 14.5 % 07/03/2022 8:34 AM [facility] [employer] [facility] RDW-STDEV 55.0(H) 37.1 - 48.7 fL 07/03/2022 8:34 AM [employer] LABORATORY SERVICES - [facility] PLATELETS 368(H) 140 - 350 K/uL 07/03/2022 8:34 AM [employer] SERVICES - [facility] MPV 9.4 9.3 - 12.4 fL 07/03/2022 8:34 AM [employer] LABORATORY SERVICES - [facility] NEUTROPHILS 40 % 07/03/2022 8:34 AM [employer] SERVICES - [facility] [place] LYMPHOCYTES 37 % 07/03/2022 8:34 AM [employer] [facility] - [facility] MONOCYTES 15 % 07/03/2022 8:34 AM [employer] SERVICES - [facility] [place] EOSINOPHILS 6 % 07/03/2022 8:34 AM [employer] [facility] - [facility] [place] BASOPHILS 1 % 07/03/2022 8:34 AM [employer] [facility] - [facility] IMMATURE GRANULOCYTES 1 % 07/03/2022 8:34 AM [employer] [facility] - [facility] Comment:IG (Immature Granulo cyte) count includes Metamyelocytes, Myelocytes, and Promyelocytes NEUTROPHIL ABSOLUTE 1.47(L) 1.90 - 7.00 K/uL 07/03/2022 8:34 AM [employer] SERVICES - [facility] LYMPHOCYTE ABSOLUTE 1.35 0.70 - 4.50 K/uL 07/03/2022 8:34 AM [employer] [facility] - [facility] [place] MONOCYTE ABSOLUTE 0.56 0.10 - 1.30 K/uL 07/03/2022 8:34 AM [employer] SERVICES - [facility] EOSINOPHIL ABSOLUTE 0.21 0.00 - 0.70 K/uL 07/03/2022 8:34 AM [employer] SERVICES - [facility] BASOPHILS ABSOLUTE 0.04 0.00 - 0.20 K/uL 07/03/2022 8:34 AM [employer] SERVICES - [facility] IMMATURE GRANULOCYTES ABSOLUTE 0.02 0.00 - 0.03 K/uL 07/03/2022 8:34 AM [facility] Blood Venipuncture / Unknown 07/03/2022 5:44 AM PLANT MAINTENANCE MECHANIC 07/03/2022 8:17 AM PLANT MAINTENANCE MECHANIC us Avni Clifford DMS HEMATOLOGY ORDERABLES Final Result [facility] CLIA# [id number] [address] [place] [address] * (ABNORMAL) POC GLUCOSE (07/02/2022 7:51 PM PLANT MAINTENANCE MECHANIC) GLUCOSE POC 346(H) 74 - 99 mg/dL 07/02/2022 7:51 PM PLANT MAINTENANCE MECHANIC [facility] SPECIMEN SOURCE, GLUCOSE POC Whole Blood 07/02/2022 7:51 PM PLANT MAINTENANCE MECHANIC [facility] COMMENT, GLU POC Notified RN/MD 07/02/2022 7:51 PM PLANT MAINTENANCE MECHANIC [facility] Blood, whole 07/02/2022 7:51 PM PLANT MAINTENANCE MECHANIC 07/02/2022 8:13 PM PLANT MAINTENANCE MECHANIC us Srinivas Jon MD POINT OF CARE TESTING Final Resu lt Performing Organization Address City/[facility]/ZIP Co de Phone Number [facility] CLIA # [id number] [address] [place] [address] * (ABNORMAL) POC GLUCOSE (07/02/2022 4:31 PM PLANT MAINTENANCE MECHANIC) GLUCOSE POC 292(H) 74 - 99 mg/dL 07/02/2022 4:31 PM PLANT MAINTENANCE MECHANIC [facility] SPECIMEN SOURCE, GLUCOSE POC Whole Blood 07/02/2022 4:31 PM PLANT MAINTENANCE MECHANIC [facility] Blood, whole 07/02/2022 4:31 PM PLANT MAINTENANCE MECHANIC 07/02/2022 4:45 PM PLANT MAINTENANCE MECHANIC us Srinivas Jon MD POINT OF CARE TESTING Final Resu lt [facility] CLIA # [id number] [id number] [place] [address] * (ABNORMAL) POC GLUCOSE (07/02/2022 12:06 PM PLANT MAINTENANCE MECHANIC) GLUCOSE POC 187(H) 74 - 99 mg/dL 07/02/2022 12:06 PM PLANT MAINTENANCE MECHANIC [facility] SPECIMEN SOURCE, GLUCOSE POC Whole Blood 07/02/2022 12:06 PM PLANT MAINTENANCE MECHANIC [facility] Blood, whole 07/02/2022 12:0 6 PM PLANT MAINTENANCE MECHANIC 07/02/2022 12:16 PM PLANT MAINTENANCE MECHANIC Srinivas Jon MD POINT OF CARE TESTING Final Resu lt Performing Organization Address [facility]/ZIP Co de Phone Number [facility] CLIA # [id number] [address] [place] [address] * (ABNORMAL) POC GLUCOSE (07/02/2022 7:37 AM PLANT MAINTENANCE MECHANIC) GLUCOSE POC 120(H) 74 - 99 mg/dL 07/02/2022 7:37 AM [facility] SPECIMEN SOURCE, GLUCOSE POC Whole Blood 07/02/2022 7:37 AM [facility] Blood, whole 07/02/2022 7:37 AM PLANT MAINTENANCE MECHANIC 07/02/2022 7:47 AM PLANT MAINTENANCE MECHANIC us Srinivas Jon MD POINT OF CARE TESTING Final Resu Performing Organization Address [facility]/ZIP Co de Phone Number [facility] CLIA # [id number] [address] [place] [address] * (ABNORMAL) POC GLUCOSE (07/01/2022 7:46 PM PLANT MAINTENANCE MECHANIC) GLUCOSE POC 240(H) 74 - 99 mg/dL 07/01/2022 7:46 PM [facility] SPECIMEN SOURCE, GLUCOSE POC Whole Blood 07/01/2022 7:46 PM [facility] COMMENT, GLU POC Notified RN/MD 07/01/2022 7:46 PM [facility] Blood, whole 07/01/2022 7:46 PM PLANT MAINTENANCE MECHANIC 07/01/2022 7:57 PM [employer] us Srinivas Jon MD POINT OF CARE TESTING Final Resu lt Performing Organization Address City/[facility]/ZIP Co de Phone Number [facility] CLIA # [id number] [place] [address] * (ABNORMAL) POC GLUCOSE (07/01/2022 5:00 PM [employer]) GLUCOSE POC 229(H) 74 - 99 mg/dL 07/01/2022 5:00 PM [employer] [facility] SPECIMEN SOURCE, GLUCOSE POC Whole Blood 07/01/2022 5:00 PM [employer] [facility] Blood, whole 07/01/2022 5:00 PM [employer] 07/01/2022 5:09 PM [employer] us Srinivas Jon MD POINT OF CARE TESTING Final Resu lt Performing Organization Address [facility] Co de Phone Number [facility] CLIA # [id number] [place] [address] * (ABNORMAL) POC GLUCOSE (07/01/2022 12:11 PM [employer]) GLUCOSE POC 205(H) 74 - 99 mg/dL 07/01/2022 12:11 PM [employer] [facility] SPECIMEN SOURCE, GLUCOSE POC Whole Blood 07/01/2022 12:11 PM [employer] [facility] Blood, whole 07/01/2022 12:1 1 PM [employer] 07/01/2022 12:23 PM [employer] us Srinivas Jon MD POINT OF CARE TESTING Final Resu lt Performing Organization Address City/[facility]/ZIP Co de Phone Number [facility] CLIA # [id number] [place] [address] * (ABNORMAL) POC GLUCOSE (07/01/2022 7:21 AM [employer]) GLUCOSE POC 216(H) 74 - 99 mg/dL 07/01/2022 7:21 AM [employer] [facility] SPECIMEN SOURCE, GLUCOSE POC Whole Blood 07/01/2022 7:21 AM [employer] [facility] Blood, whole 07/01/2022 7:21 AM [employer] 07/01/2022 7:32 AM [employer] us Srinivas Jon MD POINT OF CARE TESTING Final Resu lt [facility] CLIA # [id number] [place] [address] * (ABNORMAL) URIC ACID (07/01/2022 5:19 AM [employer]) Pathologist [facility] URIC ACID 8.4(H) 3.4 - 7.0 mg/dL 07/02/2022 11:15 PM [employer] [facility] Blood Venipuncture / Unknown 07/01/2022 5:19 AM [employer] 07/01/2022 9:45 AM [employer] us Jasmin Bradley MD CHEMISTRY ORDERABLES Final Resul t [facility] [employer] [facility] CLIA# [id number] [address] [place] [address] * (ABNORMAL) CBC WITH DIFFERENTIAL (07/01/2022 5:19 AM [employer]) Pathologist [facility] WBC 3.5(L) 4.0 - 9.8 K/uL 07/01/2022 10:07 AM [employer] [facility] RBC 2.87(L) 4.50 - 5.40 M/uL 07/01/2022 10:07 AM [employer] [facility] HEMOGLOBIN 8.7(L) 13.6 - 16.5 g/dL 07/01/2022 10:07 AM [facility] HEMATOCRIT 26.9(L) 40.0 - 48.0 % 07/01/2022 10:07 AM [employer] [facility] MCV 93.7 82.0 - 99.0 fL 07/01/2022 10:07 AM [facility] - [facility] MCH 30.3 27.2 - 32.6 pg 07/01/2022 10:07 AM [facility] [facility] MCHC 32.3 31.5 - 35.5 g/dL 07/01/2022 10:07 AM [facility] RDW 15.9(H) 11.5 - 14.5 % 07/01/2022 10:07 AM [facility] RDW-STDEV 55.0(H) 37.1 - 48.7 fL 07/01/2022 10:07 AM [facility] PLATELETS 382(H) 140 - 350 K/uL 07/01/2022 10:07 AM [facility] MPV 9.7 9.3 - 12.4 fL 07/01/2022 10:07 AM [facility] NEUTROPHILS 41 % 07/01/2022 10:07 AM [facility] LYMPHOCYTES 31 % 07/01/2022 10:07 AM [facility] MONOCYTES 17 % 07/01/2022 10:07 AM [facility] EOSINOPHILS 8 % 07/01/2022 10:07 AM [facility] BASOPHILS 1 % 07/01/2022 10:07 AM [facility] IMMATURE GRANULOCYTES 1 % 07/01/2022 10:07 AM [facility] Comment:IG (Immature Granulo cyte) count includes Metamyelocytes, Myelocytes, and Promyelocytes NEUTROPHIL ABSOLUTE 1.44(L) 1.90 - 7.00 K/uL 07/01/2022 10:07 AM [facility] LYMPHOCYTE ABSOLUTE 1.11 0.70 - 4.50 K/uL 07/01/2022 10:07 AM [facility] MONOCYTE ABSOLUTE 0.61 0.10 - 1.30 K/uL 07/01/2022 10:07 AM [facility] EOSINOPHIL ABSOLUTE 0.29 0.00 - 0.70 K/uL 07/01/2022 10:07 AM [facility] [employer] [facility] - [facility] BASOPHILS ABSOLUTE 0.05 0.00 - 0.20 K/uL 07/01/2022 10:07 AM [facility] [employer] [facility] - [facility] IMMATURE GRANULOCYTES ABSOLUTE 0.04(H) 0.00 - 0.03 K/uL 07/01/2022 10:07 AM [facility] [employer] [facility] Blood Venipuncture / Unknown 07/01/2022 5:19 AM [employer] MECH[employer] 07/01/2022 9:45 AM PLANT MAINTENANCE MECHANIC Jasmin Bradley MD HEMATOLOGY ORDERABLES Final Resu lt [employer] SERVICES [facility] CLIA# [id number] [address] [facility] [address] [place] [address] * (ABNORMAL) RENAL FUNCTION PANEL (07/01/2022 5:19 AM PLANT MAINTENANCE MECHANIC) SODIUM 131(L) 136 - 145 mmol/L 07/01/2022 10:19 AM [facility] [employer] [facility] POTASSIUM 3.3(L) 3.5 - 5.0 mmol/L 07/01/2022 10:19 AM [facility] [employer] [facility] - [facility] CHLORIDE 91(L) 98 - 107 mmol/L 07/01/2022 10:19 AM [facility] [employer] [facility] CO2 26 22 - 29 mmol/L 07/01/2022 10:19 AM [employer] [facility] CALCIUM 9.0 8.6 - 10.2 mg/dL 07/01/2022 10:19 AM [facility] [employer] [facility] BUN 48(H) 6 - 20 mg/dL 07/01/2022 10:19 AM [employer]TE[employer] CREATININE 9.56(H) 0.67 - 1.17 mg/dL 07/01/2022 10:19 AM [employer] [facility] GLUCOSE 273(H) 74 - 99 mg/dL 07/01/2022 10:19 AM [employer] [facility] ALBUMIN 2.9(L) 3.5 - 5.2 g/dL 07/01/2022 10:19 AM [facility]ORY [facility] PHOSPHORUS 5.3(H) 2.5 - 4.5 mg/dL 07/01/2022 10:19 AM [facility] GFR 6(L) >=60 mL/min/1.7 3 sq meter 07/01/2022 10:19 AM [facility] Comment:eGFR calculated with 2020 CKD-EPI equation. Vegetarian diet, extremely high or low muscle mass, and may affect results. Cystatin C with Glomerular Filtration Rate is a suitable alternative for these patients. ANION GAP 14 8 - 16 mmol/L 07/01/2022 10:19 AM [facility] Blood Venipuncture / Unknown 07/01/2022 5:19 AM PL[employer] 07/01/2022 9:45 AM PL[employer]TE[employer] MECH[employer]IC us Jasmin Bradley MD CHEMISTRY ORDERABLES Final Resul t [facility] CLIA# [id number] [address] [place] [address] * (ABNORMAL) POC GLUCOSE (06/30/2022 8:10 PM PLANT MAINTENANCE MECHANIC) Pathologist [facility] GLUCOSE POC 232(H) 74 - 99 mg/dL 06/30/2022 8:10 PM [facility] SPECIMEN SOURCE, GLUCOSE POC Whole Blood 06/30/2022 8:10 PM [facility] COMMENT, GLU POC Notified RN/MD 06/30/2022 8:10 PM [facility] Blood, whole 06/30/2022 8:10 PM [employer] 06/30/2022 8:25 PM [employer] us Srinivas Jon MD POINT OF CARE TESTING Final Resu lt [facility] CLIA # [id number] [place] [address] * (ABNORMAL) POC GLUCOSE (06/30/2022 4:31 PM [employer]TE[employer] MECH[employer]) GLUCOSE POC 260(H) 74 - 99 mg/dL 06/30/2022 4:31 PM [employer] [facility] SPECIMEN SOURCE, GLUCOSE POC Whole Blood 06/30/2022 4:31 PM [employer] [facility] Blood, whole 06/30/2022 4:31 PM [employer]TE[employer]CH[employer] 06/30/2022 5:11 PM [employer]TE[employer] MECH[employer]IC Srinivas Jon MD POINT OF CARE TESTING Final Resu lt [facility] CLIA # [id number] [place] [address] * (ABNORMAL) URINALYSIS WITH REFLEX MICROSCOPIC (06/30/2022 2:55 PM PL[employer]TE[employer] MECH[employer]IC) COLOR UA Yellow Pale to Dark Yellow 06/30/2022 4:08 PM [employer] [facility]ORY [facility] - [facility] CLARITY UA Clear Clear 06/30/2022 4:08 PM [employer]TE[employer] [facility] - [facility] SPECIFIC GRAVITY UA 1.024 1.003 - 1.035 06/30/2022 4:08 PM [employer]TE[employer] [facility] [employer] LABORATORY SERVICES - . [facility] PH UA 5.0 5.0 - 8.0 06/30/2022 4:08 PM [employer] LABORATORY SERVICES - . [facility] LEUKOCYTE ESTERASE UA Negative Negative 06/30/2022 4:08 PM [employer]TE[employer] [facility] [employer] LABORATORY SERVICES - . [facility] NITRITE UA Negative Negative 06/30/2022 4:08 PM [employer] [facility] [employer] LABORATORY SERVICES - . [facility] PROTEIN UA Negative Negative 06/30/2022 4:08 PM [employer] [facility] [employer]ORATORY SERVICES - . [facility] GLUCOSE UA 2+(A) Negative 06/30/2022 4:08 PM [employer] [facility]ORATORY SERVICES - . [facility] KETONES UA Negative Negative 06/30/2022 4:08 PM [employer] LABORATORY SERVICES - . [facility] UROBILINOGEN UA Normal <2.0 mg/dL 4:08 PM [employer] [facility]ORATORY SERVICES - [facility] BILIRUBIN UA Negative Negative 06/30/2022 4:08 PM PL[employer] MA[employer]TE[employer]CH[employer]IC [facility] LABORATORY [facility] BLOOD UA Negative Negative 06/30/2022 4:08 PM PL[employer] MAINTE[employer]CH[employer]IC [facility] Urine URINE SPECIMEN OBTAINED BY CLEAN CATCH PROCEDURE / Unknown Collection / Unknown 06/30/2022 2:55 PM PL[employer]TENANCE MECH[employer]IC 06/30/2022 3:45 PM PL[employer] MA[employer]TENAN[employer] MECH[employer] [facility] URINE ORDERABLES Final Result Performing Organization Address [facility]/ZIP Co de Phone Number [facility] CLIA# [id number] [address] [place] [address] * (ABNORMAL) URINE CULTURE (06/30/2022 2:55 PM PLANT MAINTENANCE MECHANIC) CULTURE STAPHYLOCOCCUS EPIDERMIDIS(A) LARISA MCG/ML 07/02/2022 12:31 PM [employer] [facility] Comment:No further workup in dicated. Urine URINE SPECIMEN OBTAINED BY CLEAN CATCH PROCEDURE / Unknown Collection / Unknown 06/30/2022 2:55 PM [employer]TENANCE MECH[employer]IC 06/30/2022 3:45 PM PLANT MA[employer]TENANCE MECH[employer]IC [employer] [place] MICROBIOLOGY - GENERAL ORDERABLES Final Result Performing Organization Address [facility]/ZIP Co de Phone Number [facility] CLIA# [id number] [address] [place] [address] * (ABNORMAL) POC GLUCOSE (06/30/2022 11:42 AM PL[employer] MA[employer]TE[employer] MECH[employer]) GLUCOSE POC 213(H) 74 - 99 mg/dL 06/30/2022 11:42 AM [employer] [facility] SPECIMEN SOURCE, GLUCOSE POC Whole Blood 06/30/2022 11:42 AM [employer] [facility] Blood, whole 06/30/2022 11:4 2 AM [employer] 06/30/2022 11:55 AM PL[employer] MA[employer]TENAN[employer] MECH[employer]IC Srinivas Jon MD POINT OF CARE TESTING Final Resu lt Performing Organization Address [facility]/ZIP Co de Phone Number [facility] CLIA # [id number] [place] [address] * (ABNORMAL) POC GLUCOSE (06/30/2022 7:03 AM PLANT MAINTENANCE MECHANIC) GLUCOSE POC 216(H) 74 - 99 mg/dL 06/30/2022 7:03 AM [employer] [facility] SPECIMEN SOURCE, GLUCOSE POC Whole Blood 06/30/2022 7:03 AM PL[employer] [facility] Blood, whole 06/30/2022 7:03 AM [employer]NCE MECH[employer]IC 06/30/2022 7:23 AM PL[employer] MA[employer]TE[employer] MECH[employer]IC us Srinivas Jon MD POINT OF CARE TESTING Final Resu lt Performing Organization Address [facility] Co de Phone Number [facility] CLIA # [id number] [place] [address] * HEPATITIS B SURFACE ANTIGEN (06/30/2022 5:46 AM PLANT MAINTENANCE MECHANIC) [facility] HEPATITIS B SURFACE AG NON-REACT CARA Non-react cara 06/30/2022 11:26 AM PL[employer] MA[employer]TENANCE MECH[employer]IC [facility] [employer] [facility] Comment:A non-reactive test result does not exclude the possibility of exposure to or infection with hepatitis B. Blood Venipuncture / Unknown 06/30/2022 5:46 AM PLANT MAINTENANCE MECHANIC 06/30/2022 10:40 AM PL[employer] MA[employer]TE[employer]NCE MECH[employer] us Jasmin Bradley MD CHEMISTRY ORDERABLES Final Resul t Performing Organization Address [facility]/ZIP Co de Phone Number [facility] [employer] [facility] CLIA# [id number] [address] [place] [address] * HEPATITIS B SURFACE AB, QUANT (06/30/2022 5:46 AM PLANT MAINTENANCE MECHANIC) Pathologist [facility] HEPATITIS B SURF AB,QN 188.5 mlU/mL 06/30/2022 11:27 AM [employer]TE[employer] ME[employer]IC [facility] [employer] [facility] HEPATITIS B SURFACE AB INTERP Reactive See Interp 06/30/2022 11:27 AM [facility] [employer] LABORATORY SERVICES [facility] Comment:Patient is considere d to be immune to infection with HBV. Blood Venipuncture / Unknown 06/30/2022 5:46 AM PL[employer]TE[employer] MECH[employer]IC 06/30/2022 10:40 AM [employer]IC Jasmin Bradley MD CHEMISTRY ORDERABLES Final Resul t [employer] SERVICES [facility] CLIA# [id number] [address] [facility] [place] [address] [place] [address] * (ABNORMAL) COMPREHENSIVE METABOLIC PANEL (06/30/2022 5:46 AM PL[employer]TE[employer]CHAN[employer]) SODIUM 133(L) 136 - 145 mmol/L 06/30/2022 11:18 AM [facility] [employer] [facility] POTASSIUM 3.3(L) 3.5 - 5.0 mmol/L 06/30/2022 11:18 AM [facility] [employer] [facility] CHLORIDE 90(L) 98 - 107 mmol/L 06/30/2022 11:18 AM [facility] [employer] [facility] CO2 25 22 - 29 mmol/L 06/30/2022 11:18 AM [facility] [employer] [facility] CALCIUM 9.1 8.6 - 10.2 mg/dL 06/30/2022 11:18 AM [facility] [employer] [facility] BUN 47(H) 6 - 20 mg/dL 06/30/2022 11:18 AM [facility] [employer] [facility] CREATININE 9.78(H) 0.67 - 1.17 mg/dL 06/30/2022 11:18 AM [facility] [employer] [facility]. [facility] GLUCOSE 241(H) 74 - 99 mg/dL 06/30/2022 11:18 AM [facility] [employer] [facility]. [facility] TOTAL PROTEIN 6.6(L) 6.7 - 8.6 g/dL 06/30/2022 11:18 AM [facility] [employer] [facility] ALBUMIN 3.1(L) 3.5 - 5.2 g/dL 06/30/2022 11:18 AM [facility] BILIRUBIN TOTAL 0.4 0.3 - 1.2 mg/dL 06/30/2022 11:18 AM [facility] ALKALINE PHOSPHATASE 106 40 - 129 U/L 06/30/2022 11:18 AM [facility] AST 23 <41 U/L 06/30/2022 11:18 AM [facility] ALT 31 <42 U/L 06/30/2022 11:18 AM [facility] GFR 6(L) >=60 mL/min/1.7 3 sq meter 06/30/2022 11:18 AM [facility] Comment:eGFR calculated with 2020 CKD-EPI equation. Vegetarian diet, extremely high or low muscle mass, and may affect results. Cystatin C with Glomerular Filtration Rate is a suitable alternative for these patients. ANION GAP 18(H) 8 - 16 mmol/L 06/30/2022 11:18 AM [facility] Blood Venipuncture / Unknown 06/30/2022 5:46 AM PLANT MA[employer]TENANCE MECHANIC 06/30/2022 10:40 AM [facility] - 06/30/2022 11:18 AM [employer]TE[employer]NCE MECHANIC Samples containing indocyanine green cause interferences on Total and/or Direct Bilirubin and must not be measured. [employer] [facility] CHEMISTRY ORDERABLES F inal Result [facility]# [id number] [address] [place] [address] * (ABNORMAL) CBC WITH DIFFERENTIAL (06/30/2022 5:46 AM PLANT MAINTENANCE MECHANIC) WBC 3.7(L) 4.0 - 9.8 K/uL 06/30/2022 10:49 AM [facility] RBC 2.76(L) 4.50 - 5.40 M/uL 06/30/2022 10:49 AM [facility] HEMOGLOBIN 8.4(L) 13.6 - 16.5 g/dL 06/30/2022 10:49 AM [facility] HEMATOCRIT 25.6(L) 40.0 - 48.0 % 06/30/2022 10:49 AM [facility] MCV 92.8 82.0 - 99.0 fL 06/30/2022 10:49 AM [facility] MCH 30.4 27.2 - 32.6 pg 06/30/2022 10:49 AM [facility] MCHC 32.8 31.5 - 35.5 g/dL 06/30/2022 10:49 AM [facility] RDW 16.4(H) 11.5 - 14.5 % 06/30/2022 10:49 AM [facility] RDW-STDEV 54.4(H) 37.1 - 48.7 fL 06/30/2022 10:49 AM [facility] PLATELETS 390(H) 140 - 350 K/uL 06/30/2022 10:49 AM [facility] MPV 10.0 9.3 - 12.4 fL 06/30/2022 10:49 AM [facility] NEUTROPHILS 43 % 06/30/2022 10:49 AM [facility] LYMPHOCYTES 32 % 06/30/2022 10:49 AM [facility] MONOCYTES 15 % 06/30/2022 10:49 AM [facility] EOSINOPHILS 8 % 06/30/2022 10:49 AM [facility] BASOPHILS 1 % 06/30/2022 10:49 AM [facility] IMMATURE GRANULOCYTES 1 % 06/30/2022 10:49 AM [facility] Comment:IG (Immature Granulo cyte) count includes Metamyelocytes, Myelocytes, and Promyelocytes NEUTROPHIL ABSOLUTE 1.57(L) 1.90 - 7.00 K/uL 06/30/2022 10:49 AM [facility] LYMPHOCYTE ABSOLUTE 1.16 0.70 - 4.50 K/uL 06/30/2022 10:49 AM [employer]TE[employer] [facility]ORATORY SERVICES - [facility] MONOCYTE ABSOLUTE 0.56 0.10 - 1.30 K/uL 06/30/2022 10:49 AM PL[employer] MAINTE[employer]NCE [employer]CH[employer]IC [facility] LABORATORY [facility] EOSINOPHIL ABSOLUTE 0.29 0.00 - 0.70 K/uL 06/30/2022 10:49 AM PL[employer] MAINTE[employer]NCE ME[employer]IC [facility] LABORATORY [facility] BASOPHILS ABSOLUTE 0.03 0.00 - 0.20 K/uL 06/30/2022 10:49 AM [employer]IC [facility] LABORATORY SERVICES - [facility] IMMATURE GRANULOCYTES ABSOLUTE 0.05(H) 0.00 - 0.03 K/uL 06/30/2022 10:49 AM [facility] LABORATORY [facility] Blood Venipuncture / Unknown 06/30/2022 5:46 AM PLANT MAINTENANCE MECHANIC 06/30/2022 10:40 AM PLANT MAINTENANCE MECHANIC Avni Clifford [facility] HEMATOLOGY ORDERABLES Final Result [facility] [employer] [facility] CLIA# [id number] [address] [facility] [address] [place] [address] * (ABNORMAL) VITAMIN D 25 HYDROXY (06/30/2022 5:46 AM PLANT MAINTENANCE MECHANIC) Pathologist [facility] VITAMIN D TOTAL (25OH) 17(L) 30 - 100 ng/mL 06/30/2022 11:29 AM PL[employer]TENANCE [employer]IC [facility] Blood Venipuncture / Unknown 06/30/2022 5:46 AM PLANT MAINTENANCE MECHANIC 06/30/2022 10:40 AM PL[employer] MA[employer]TENAN[employer] MECHANIC Narrative [facility] LABORATORY [facility] - 06/30/2022 11:29 AM PL[employer]TE[employer]NCE MECHANIC Interpretive Data Chart: Deficient: ? 0 - 20 ng/mL Insufficient: ?21 - 29 ng/mL Sufficient: ?30 - 100 ng/mL Increased Risk of Hypercalciuria: ??>100 ng/ml Toxic: ? >150 ng/ml [employer] Herbie [employer] CHEMISTRY ORDERABLES F inal Result Performing Organization Address [facility] Phone Number [facility] [employer] [facility]# [id number] [address] [place] [address] * VITAMIN B12 LEVEL (06/30/2022 5:46 AM PLANT MAINTENANCE MECHANIC) VITAMIN B12 1,178 232 - 1,245 pg/mL 06/30/2022 11:29 AM PL[employer]TENANCE ME[employer]IC [facility] [employer] [facility] Comment:It has been reported that between 5 to 10% of patients with values between 200 and 400 pg/mL may experience neuropsychiatric and hematologic abnormalities due to occult B12 deficiency. Less than 1% of patients with values above 400 pg/mL will have symptoms. Blood Venipuncture / Unknown 06/30/2022 5:46 AM PLANT MAINTENANCE MECHANIC 06/30/2022 10:40 AM PLANT MAINTENANCE MECHANIC [employer] Herbie Clifford [employer] CHEMISTRY ORDERABLES F inal Result Performing Organization Address [facility] Phone Number [facility] [employer] [facility]# [id number] [address] [place] [address] * TSH REFLEXIVE (06/30/2022 5:46 AM PLANT MAINTENANCE MECHANIC) TSH 3.75 0.27 - 4.20 uIU/mL 06/30/2022 11:22 AM PL[employer]TE[employer]NCE [employer]IC [facility] [employer] Blood Venipuncture / Unknown 06/30/2022 5:46 AM PL[employer] MAINTENANCE MECHANIC 06/30/2022 10:40 AM PLANT MAINTENANCE MECHANIC [employer] Herbie [employer]ulkner[employer] CHEMISTRY ORDERABLES F inal Result Performing Organization Address [facility]/ZIP Co de Phone Number [facility] CLIA# [id number] [address] [place] [address] * (ABNORMAL) POC GLUCOSE (06/29/2022 9:52 PM PLANT MAINTENANCE MECHANIC) GLUCOSE POC 271(H) 74 - 99 mg/dL 06/29/2022 9:52 PM PLANT MAINTENANCE MECHANIC [facility] SPECIMEN SOURCE, GLUCOSE POC Whole Blood 06/29/2022 9:52 PM PLANT MAINTENANCE MECHANIC [facility] Blood, whole 06/29/2022 9:52 PM PLANT MA[employer]TENANCE MECHANIC 06/29/2022 10:00 PM PL[employer] MA[employer]TENANCE MECHANIC us Srinivas Jon MD POINT OF CARE TESTING Final Resu lt [facility] CLIA # [id number] [address] [place] [address] * (ABNORMAL) POC GLUCOSE (06/29/2022 4:28 PM PLANT MAINTENANCE MECHANIC) GLUCOSE POC 265(H) 74 - 99 mg/dL 06/29/2022 4:28 PM PLANT MAINTENANCE MECHANIC [facility] SPECIMEN SOURCE, GLUCOSE POC Whole Blood 06/29/2022 4:28 PM PLANT MAINTENANCE MECHANIC [facility] Blood, whole 06/29/2022 4:28 PM [employer]TE[employer]NCE MECHANIC 06/29/2022 4:47 PM PLANT MAINTENANCE MECHANIC us Srinivas Jon MD POINT OF CARE TESTING Final Resu lt [facility] CLIA # [id number] [place] [address] documented in this encounter Visit Diagnoses Diagnosis [...] Coronary atherosclerosis of unspecified type of vessel, augustine or graft Hyperparathyroidism Hyperparathyroidism, unspecified Congestive heart [...] instructions, Routine Given 06/29/2022 4:57 PM [employer] 650 mg acetaminophen (TYLENOL) tablet 650 mg 650 mg, Oral, EVERY 6 HOURS PRN, Starting on Mon06/29/22 at 2146, Until Mon07/08/22 at 1625, Other (See Comment), Pain, Moderate, Pain, Mild, See admin instructions, Routine Given 06/30/2022 8:01 AM [employer] MECHANIC 650 mg aspirin (JOSEPH CHEWABLE) chewable tablet 81 mg 81 mg, Oral, DAILY, First dose (after last modification) on Gregoria 06/30/22 at 0900, Until Discontinued Given 07/02/2022 7:55 AM [employer]NCE MECHANIC 81 mg Given 07/01/2022 9:00 AM [employer] MECHANIC 81 mg Given 06/30/2022 8:01 AM [employer] MA[employer]TENANCE MECHANIC 81 mg aspirin (ECOTRIN EC) tablet 81 mg 81 mg, Oral, DAILY, First dose on Mon07/03/22 at 0900, Until Discontinued, Routine Given 07/08/2022 7:28 AM [employer] MA[employer]TE[employer]NCE MECHANIC 81 mg Given 07/07/2022 8:42 AM PL[employer]TE[employer]NCE MECHANIC 81 mg Given 07/06/2022 7:36 AM [employer]TE[employer]NCE MECHANIC 81 mg atorvastatin (LIPITOR) tablet 80 mg 80 mg, Oral, DAILY, First dose (after last modification) on [place] 06/30/22 at 0900, Until Discontinued Given 07/08/2022 7:28 AM [employer] 80 mg Given 07/07/2022 8:43 AM [employer] 80 mg Given 07/06/2022 7:37 AM [employer] 80 mg calcitRIOL (ROCALTROL) capsule 0.25 mcg 0.25 mcg, Oral, DAILY, First dose (after last modification) on [place] 06/30/22 at 0900, Until Discontinued Given 07/08/2022 7:27 AM [employer] 0.25 mcg Given 07/07/2022 8:43 AM [employer] 0.25 mcg Given 07/06/2022 7:35 AM [employer] 0.25 mcg calcium acetate (CALPHRON) tablet 667 mg 667 mg, Oral, THREE TIMES DAILY BEFORE MEALS, First dose (after last modification) on Mon06/29/22 at 1630, Until Discontinued Given 07/08/2022 1:18 PM [employer] 667 mg Given 07/08/2022 7:30 AM [employer] 667 mg Given 07/07/2022 6:12 PM [employer] 667 mg cetirizine (ZyrTEC) tablet 5 mg 5 mg, Oral, DAILY PRN, Starting on Mon06/29/22 at 1448, Until Mon07/08/22 at 1625, Congestion, Allergies, Rhinitis, Routine Given 06/30/2022 8:01 AM [employer] 5 mg cloNIDine ([id number]) 0.1 mg/24 hr transdermal patch 1 Patch 1 Patch, Transdermal, EVERY 7 DAYS, First dose on [place] 06/30/22 at 0600, Until Discontinued, Routine Applied 06/30/2022 5:47 AM [employer] 1 Patch Arm, Right Upper clopidogreL (PLAVIX) tablet 75 mg 75 mg, Oral, DAILY, First dose (after last modification) on [place] 06/30/22 at 0900, Until Discontinued Given 07/08/2022 7:28 AM [employer] 75 mg Given 07/07/2022 8:43 AM [employer] 75 mg Given 07/06/2022 7:35 AM [employer] 75 mg colchicine (COLCRYS) tablet 0.6 mg 0.6 mg, Oral, EVERY 48 HOURS, First dose on [place] 06/30/22 at 0900, Until Discontinued, Routine Given 07/08/2022 7:28 AM [employer] 0.6 mg Given 07/06/2022 7:35 AM [employer] 0.6 mg Given 07/04/2022 8:26 AM [employer] 0.6 mg darbepoetin genia (ARANESP) 100 mcg/0.5 mL injection 100 mcg 100 mcg, subCUT, EVERY 7 DAYS, First dose on [place] 07/03/22 at 0900, Until Discontinued, Routine, Reason for treatment with Epoetin/Darbepoetin: Anemia of Chronic Kidney Disease (on dialysis) Given 07/03/2022 10:05 AM [employer] 100 mcg Arm, Left Upper doxycycline monohydrate (MONODOX) capsule 50 mg 50 mg, Oral, EVERY 12 HOURS (BlD), First dose on Mon06/29/22 at 2100, Until Discontinued, Routine, Antibiotic Indication: Intra-abdominal infection / Fecal Contamination, Is sepsis suspected? Unlikely Given 07/07/2022 8:43 AM [employer] 50 mg Given 07/06/2022 8:18 PM [employer] 50 mg Given 07/06/2022 7:36 AM [employer] 50 mg doxycycline monohydrate (MONODOX) capsule 50 mg 50 mg, Oral, EVERY 12 HOURS (BlD), 5 doses, First dose (after last modification) on [place] 07/07/22 at 2100, Last dose on 07/09/22 at 2100, Routine, Antibiotic Indication: Intra-abdominal infection / Fecal Contamination, Is sepsis suspected? Unlikely Given 07/08/2022 7:29 AM PLANT MAINTENANCE MECHANIC 50 mg Given 07/07/2022 9:41 PM PLANT MAINTENANCE MECHANIC 50 mg ezetimibe (ZETIA) tablet 10 mg 10 mg, Oral, DAILY, First dose on [place] 06/30/22 at 0900, Until Discontinued, Routine Given 07/08/2022 7:28 AM PLANT MAINTENANCE MECHANIC 10 mg Given 07/07/2022 8:42 AM PLANT MAINTENANCE MECHANIC 10 mg Given 07/06/2022 7:37 AM PLANT MAINTENANCE MECHANIC 10 mg folic acid-Vit B6-Vit B12 (FOLTX) per tablet 1 Tablet 1 Tablet, Oral, DAILY, First dose on Mon06/29/22 at 1500, Until Discontinued, Routine Given 07/08/2022 7:29 AM PLANT MAINTENANCE MECHANIC 1 Tablet Given 07/07/2022 8:43 AM PLANT MAINTENANCE MECHANIC 1 Tablet Given 07/06/2022 7:36 AM PLANT MAINTENANCE MECHANIC 1 Tablet furosemide (LASIX) tablet 40 mg 40 mg, Oral, TWO TIMES DAILY, 7 HOURS APART, First dose (after last modification) on Mon07/04/22 at 1500, Until Discontinued, Routine Given 07/04/2022 4:0 0 PM PLANT MAINTENANCE MECHANIC 40 mg furosemide (LASIX) tablet 80 mg 80 mg, Oral, TWO TIMES DAILY, 7 HOURS APART, First dose on Mon06/29/22 at 1500, Until Discontinued, Routine Given 07/04/2022 8:26 AM PLANT MAINTENANCE MECHANIC 80 mg Given 07/03/2022 3:50 PM PLANT MAINTENANCE MECHANIC 80 mg Given 07/03/2022 7:47 AM PLANT MAINTENANCE MECHANIC 80 mg furosemide (LASIX) tablet 80 mg 80 mg, Oral, DAILY, First dose (after last modification) on Mon07/05/22 at 0900, Until Discontinued, Routine Given 07/08/2022 7:29 AM PLANT MAINTENANCE MECHANIC 80 mg Given 07/07/2022 8:42 AM PLANT MAINTENANCE MECHANIC 80 mg Given 07/06/2022 7:36 AM PLANT MAINTENANCE MECHANIC 80 mg gentamicin (GARAMYCIN) 0.1 % topical ointment Topical, DAILY, First dose (after last modification) on Mon06/30/22 at 0900, Until Discontinued Given 07/04/2022 9:00 AM PLANT MAINTENANCE MECHANIC Other (Comment) Given 07/01/2022 5:00 PM PLANT MAINTENANCE MECHANIC A bdominal Tissue Given 06/30/2022 9:00 AM PLANT MAINTENANCE MECHANIC Ot her (Comment) heparin injection 5,000 Units 5,000 Units, subCUT, EVERY 8 HOURS, First dose (after last modification) on Mon06/29/22 at 2100, Until Discontinued Given 07/08/2022 5:00 AM PLANT MAINTENANCE MECHANIC 5,000 Units Abdomen, Left Lower Quadrant Given 07/07/2022 9:41 PM PLANT MAINTENANCE MECHANIC 5,000 Units A bdomen, Left Lower Quadrant Given 07/07/2022 3:52 PM PLANT MAINTENANCE MECHANIC 5,000 Units A bdominal Tissue HYDROcodone-acetaminophen (NORCO) 5-325 mg per tablet 1 Tablet 1 Tablet, Oral, EVERY 6 HOURS PRN, Starting on Mon06/29/22 at 2147, Until Mon07/08/22 at 1625, Pain (See admin instructions), Pain, Severe, Routine Given 07/06/2022 8:17 PM PLANT MAINTENANCE MECHANIC 1 Tablet Given 07/05/2022 8:13 PM PLANT MAINTENANCE MECHANIC 1 Tablet Given 07/04/2022 4:00 PM PLANT MAINTENANCE MECHANIC 1 Tablet insulin aspart pump basal (NovoLOG) 100 unit/mL infusion subCUT, THREE TIMES DAILY, First dose on Mon06/29/22 at 2001, Until Discontinued, Routine, At rehab the patient must supply own pump insulin Acknowledged 07/08/2022 8:01 AM PLANT MAINTENANCE MECHANIC 1.7 Units/hr Abdomen, Left Upper Quadrant Acknowledged 07/08/2022 3:01 AM PLANT MAINTENANCE MECHANIC 5.1 Units/hr Abdomen, Left Lower Quadrant Acknowledged 07/07/2022 8:01 PM PLANT MAINTENANCE MECHANIC 5.8 Units/hr Abdomen, Left Lower Quadrant insulin lispro (HumaLOG) variable dose injection subCUT, FOUR TIMES DAILY WITH MEALS AND AT BEDTIME, First dose on Mon06/29/22 at 1700, Until Discontinued, Routine Given 07/07/2022 5:00 PM PLANT MAINTENANCE MECHANIC 6.6 Units Abdom inal Tissue Given 07/03/2022 4:51 PM PLANT MAINTENANCE MECHANIC 7.2 Units Ab domen, Left Upper Quadrant Given 07/03/2022 12:16 PM PLANT MAINTENANCE MECHANIC 10.35 Units Abdomen, Left Lower Quadrant isosorbide mononitrate (IMDUR) SR 24 hour tablet 30 mg 30 mg, Oral, DAILY, First dose (after last modification) on Mon06/30/22 at 0900, Until Discontinued Given 07/08/2022 7:30 AM PLANT MAINTENANCE MECHANIC 30 mg Given 07/07/2022 8:43 AM PLANT MAINTENANCE MECHANIC 30 mg Given 07/06/2022 7:34 AM PLANT MAINTENANCE MECHANIC 30 mg losartan (COZAAR) tablet 12.5 mg 12.5 mg, Oral, DAILY, First dose (after last modification) on Mon06/30/22 at 0900, Until Discontinued, On hold since Mon06/30/2022 at 1114 until manually unheld Given 06/30/2022 8:01 AM PLANT MAINTENANCE MECHANIC 12.5 mg melatonin tablet 6 mg 6 mg, Oral, DAILY AT BEDTIME, First dose on Mon06/29/22 at 2100, Until Discontinued, Routine Given 07/07/2022 9:41 PM PLANT MAINTENANCE MECHANIC 6 mg Given 07/06/2022 8:18 PM PLANT MAINTENANCE MECHANIC 6 mg Given 07/05/2022 8:14 PM PLANT MAINTENANCE MECHANIC 6 mg metoprolol tartrate (LOPRESSOR) tablet 12.5 mg 12.5 mg, Oral, TWO TIMES DAILY, First dose (after last modification) on Mon07/04/22 at 2100, Until Discontinued Given 07/08/2022 7:29 AM PLANT MAINTENANCE MECHANIC 12.5 mg Given 07/07/2022 9:45 PM PLANT MAINTENANCE MECHANIC 12.5 mg Given 07/07/2022 8:43 AM PLANT MAINTENANCE MECHANIC 12.5 mg metoprolol tartrate (LOPRESSOR) tablet 25 mg 25 mg, Oral, TWO TIMES DAILY, First dose (after last modification) on Mon06/29/22 at 2100, Until Discontinued Given 07/04/2022 8:26 AM PLANT MAINTENANCE MECHANIC 25 mg Given 07/03/2022 8:11 PM PLANT MAINTENANCE MECHANIC 25 mg Given 07/03/2022 7:47 AM PLANT MAINTENANCE MECHANIC 25 mg mineral oil-white petrolatum-ceresin (EUCERIN) topical cream Topical, DAILY, First dose on Tu07/05/22 at 1115, Until Discontinued, RoutineIndications:Abdominal dryness Given 07/08/2022 7:36 AM PLANT MAINTENANCE MECHANIC Arm, Left Given 07/07/2022 9:00 AM PLANT MAINTENANCE MECHANIC Ab domen, Right Lower Quadrant Given 07/06/2022 12:34 PM PLANT MAINTENANCE MECHANIC A rm, Left New Admission Meds - retrieve upon admission 1. Remove admission medications for this patient from the Comp 1 [employer] machine on evening of admission 2. Acknowledge this order on the MAR (only after meds have been removed from [facility]), See Admin Instructions, EVERY 4 HOURS, 1 dose, First dose on Mon06/29/22 at 1600 Given 06/29/2022 4:00 PM PLANT MAINTENANCE MECHANIC Other (Comment) pantoprazole (PROTONIX) tablet 40 mg 40 mg, Oral, DAILY, First dose (after last modification) on [place] 06/30/22 at 0600, Until Discontinued Given 07/08/2022 5:59 AM PLANT MAINTENANCE MECHANIC 40 mg Given 07/07/2022 6:00 AM PLANT MAINTENANCE MECHANIC 40 mg Given 07/06/2022 7:08 AM PLANT MAINTENANCE MECHANIC 40 mg peg [id number]-tachocmn 1-0.2-0.2 % ophthalmic solution 1 Drop 1 Drop, Both Eyes, FOUR TIMES DAILY, First dose (after last modification) on Mon06/29/22 at 1800, Until Discontinued Given 07/08/2022 1:18 PM PLANT MAINTENANCE MECHANIC 1 Drop Given 07/08/2022 7:27 AM PLANT MAINTENANCE MECHANIC 1 Drop Given 07/07/2022 9:41 PM PLANT MAINTENANCE MECHANIC 1 Drop potassium chloride (KLOR-CON) SR tablet 20 mEq 20 mEq, Oral, DAILY WITH BREAKFAST, First dose on Mon07/03/22 at 0800, Until Discontinued, Routine Given 07/04/2022 8:26 AM PLANT MAINTENANCE MECHANIC 20 mEq Given 07/03/2022 7:46 AM PLANT MAINTENANCE MECHANIC 20 mEq potassium chloride (KLOR-CON) SR tablet 40 mEq 40 mEq, Oral, ONE TIME ONLY, 1 dose, On Mon07/01/22 at 1100, Routine Given 07/01/2022 11:00 AM PLANT MAINTENANCE MECHANIC 40 mEq potassium chloride (KLOR-CON) SR tablet 40 mEq 40 mEq, Oral, ONE TIME ONLY, 1 dose, On Mon07/02/22 at 2230, Routine Given 07/03/2022 5:33 AM PLANT MAINTENANCE MECHANIC 40 mEq ranolazine ER (RANEXA) SR 12 hour tablet 500 mg 500 mg, Oral, EVERY 12 HOURS (BlD), First dose on Mon06/29/22 at 2100, Until Discontinued, Routine Given 07/08/2022 7:30 AM PLANT MAINTENANCE MECHANIC 500 mg Given 07/07/2022 9:41 PM PLANT MAINTENANCE MECHANIC 500 mg Given 07/07/2022 9:00 AM PLANT MAINTENANCE MECHANIC 500 mg tiZANidine (ZANAFLEX) tablet 2 mg 2 mg, Oral, EVERY 8 HOURS, First dose on Mon06/30/22 at 1300, Until Discontinued, Routine Given 07/02/2022 4:47 AM PLANT MAINTENANCE MECHANIC 2 mg Given 07/01/2022 9:09 PM PLANT MAINTENANCE MECHANIC 2 mg Given 07/01/2022 1:49 PM PLANT MAINTENANCE MECHANIC 2 mg tiZANidine (ZANAFLEX) tablet 2 mg 2 mg, Oral, EVERY 12 HOURS, First dose (after last modification) on Mon07/07/22 at 1815, Until Discontinued, Routine Given 07/08/2022 5:59 AM PLANT MAINTENANCE MECHANIC 2 mg Given 07/07/2022 6:11 PM PLANT MAINTENANCE MECHANIC 2 mg tiZANidine (ZANAFLEX) tablet 4 mg 4 mg, Oral, EVERY 8 HOURS, First dose (after last modification) on [facility] 07/02/22 at 1300, Until Discontinued, Routine Given 07/07/2022 6:01 AM PLANT MAINTENANCE MECHANIC 4 mg Given 07/06/2022 8:21 PM PLANT MAINTENANCE MECHANIC 4 mg Given 07/06/2022 12:29 PM PLANT MAINTENANCE MECHANIC 4 mg documented in this encounter Active and Recently Administered Medications Times are shown in PLANT MAINTENANCE MECHANIC. Scheduled Medication Order 07/06/2022 07/07/2022 07/08/2022 aspirin (ECOTRIN EC) tablet 81 mg 81 mg, Oral, DAILY, First dose on [place] 07/03/22 at 0900, Until Discontinued, Routine 0736 [...] Until Discontinued, Routine 0737 (Given - Provider: Loenela Lantigua RN)0900 (Canceled Entry - Provider: Leonela [...] Until Discontinued 0900 (Not Given - Provider: Loenela Lantigua RN - Reason: Other - See [...] (Given - Provider: Shawn Silva RN) peg 893-[id number]-blvgev in 1-0.2-0.2 % ophthalmic solution 1 Drop [...] Routine documented in this encounter Care Teams Heel Lining Paster Relationship Specialty Start Date End Date Aditya Castro MD PCP - General Student in an Organized Health Care Education/Training Program 09/11/18 documented as of this encounter
--- OUTSIDE RECORDS SUMMARY | 2024-09-07 23:29 | XMS_ITS | Encounter Summary ---
Author Organization [facility] Address [address] [place] [address] Care Team Providers Care Borematic Operator Name Role Phone Aditya Castro MD Primary Care Provider [phone] Encounter Details Date Type Department Care Team (Late st Contact Info) Description 02/08/2019 Orders Only [facility] Oncology and Hematology - [place] [address] [facility] [address] [place] [address] Fernando Schmid MD [address] [facility] [address] [place] [address] Anemia in stage 4 chronic [...] MD HEMATOLOGY ORDERABLES Final Res ult NON [facility] documented in this encounter Visit Diagnoses Diagnosis Anemia in stage 4 chronic kidney disease documented in this encounter Care Teams Borematic Operator Relationship Specialty Start Date End Date Aditya Castro MD PCP - General Student in an Organized Health Care Education/Training Program 09/11/18 documented as of this encounter
--- OUTSIDE RECORDS SUMMARY | 2024-09-07 23:29 | XMS_ITS | Encounter Summary ---
Author Organization [facility] Address [address] [place] [address] Care Team Providers Care Vessel Operator Name Role Phone Aditya Castro MD Primary Care Provider [phone] Encounter Details Date Type Department Care Team (Late st Contact Info) Description 10/23/2019 Orders Only [facility] Oncology and Hematology - [place] [address] [place] [address] Fernando Schmid MD [address] [facility] [address] [place] [address] Anemia in stage 4 chronic [...] City/[facility]/ZIP Co de Phone Number NON [facility] * CBC WITH DIFFERENTIAL (10/30/2019) Blood Fernando Schmid MD HEMATOLOGY ORDERABLES Final Res ult Performing Organization Address [facility] Co de Phone Number NON [facility] documented in this encounter Visit Diagnoses Diagnosis Anemia in stage 4 chronic kidney disease Anemia of chronic renal failure, stage 4 (severe) documented in this encounter Care Teams Vessel Operator Relationship Specialty Start Date End Date Aditya Castro MD PCP - General Student in an Organized Health Care Education/Training Program 09/11/18 documented as of this encounter
--- OUTSIDE RECORDS SUMMARY | 2024-09-07 23:29 | XMS_ITS | Encounter Summary ---
Author Organization [facility] Address [address] [place] [address] Care Team Providers Care Auto Painter Name Role Phone Aditya Castro MD Primary Care Provider [phone] Reason for Visit * Reason Comments Follow Up * Eval and Treat (Routine) - Closed Specialty Diagnoses / Procedures Referred By Contjodi t Referred To Contact Oncology Diagnoses N18.4 Procedures Office Visit Level [id number] Aditya Castro MD Phone: tel: fax: Fernando Schmid MD [address] [place] [address] Phone: tel: fax: Referral ID Status Reason Start Date Expiration Date Visits Re quested Visits Authorized [id number] Closed 01/29/2019 04/29/2019 1 6 Encounter Details Date Type Department Care Team (Late st Contact Info) Description 01/29/2019 10:15 AM CDT Office Visit [facility] Oncology and Hematology - [place] [address] [facility] [address] [place] [address] Fernando Schmid MD [address] [place] [address] Anemia in stage 4 chronic [...] ORDERABLES Final Resu lt Performing Organization Address City/[facility] Co de Phone Number EXTERNAL LAB * (ABNORMAL) CBC WITH DIFFERENTIAL (05/01/2019) Blood Fernando Schmid MD HEMATOLOGY ORDERABLES Final Res ult Performing Organization Address City/[facility] Co de Phone Number EXTERNAL LAB documented in this encounter Visit Diagnoses Diagnosis Anemia in stage 4 chronic kidney disease- Primary documented in this encounter Care Teams Auto Painter Relationship Specialty Start Date End Date Aditya Castro MD PCP - General Student in an Organized Health Care Education/Training Program 09/11/18 documented as of this encounter
--- OUTSIDE RECORDS SUMMARY | 2024-09-07 23:29 | XMS_ITS | Encounter Summary ---
Author Organization [facility] Address [address] [place] [address] Care Team Providers Care Chain Dyer Name Role Phone Aditya Castro MD Primary Care Provider [phone] Encounter Details Date Type Department Care Team (Late st Contact Info) Description 03/20/2019 Orders Only [facility] Oncology and Hematology - [place] [address] [facility] [address] [place] [address] Fernando Schmid MD [address] [facility] [address] [place] [address] Anemia in stage 4 chronic [...] MD HEMATOLOGY ORDERABLES Final Res ult NON [facility] documented in this encounter Visit Diagnoses Diagnosis Anemia in stage 4 chronic kidney disease documented in this encounter Care Teams Chain Dyer Relationship Specialty Start Date End Date Aditya Castor MD PCP - General Student in an Organized Health Care Education/Training Program 09/11/18 documented as of this encounter
--- OUTSIDE RECORDS SUMMARY | 2024-09-07 23:29 | XMS_ITS | Encounter Summary ---
Author Organization [facility] [employer] [facility] Address [address] [place] [address] Care Team Providers Care Manufacturing Accountant Name Role Phone Aditya Castro MD Primary Care Provider [phone] Encounter Details Date Type Department Care Team (Late st Contact Info) Description 09/22/2022 Orders Only [facility] Oncology and Hematology - [place] [address] [place] [id number] Lucinda Sr History of deep vein thrombosis [...] Coronavirus/COVID-19? No / Unsure 09/21/2022 11:32 AM BRANCH OPERATIONS MANAGER documented as of this encounter Plan of Treatment Not on file documented as of this encounter Visit Diagnoses Diagnosis History of deep vein thrombosis Personal history of venous thrombosis and embolism documented in this encounter Care Teams Manufacturing Accountant Relationship Specialty Start Date End Date Aditya Castro MD PCP - General Student in an Organized Health Care Education/Training Program 09/11/18 documented as of this encounter
--- OUTSIDE RECORDS SUMMARY | 2024-09-07 23:29 | XMS_ITS | Encounter Summary ---
Author Organization [facility] [employer] [facility] Address [address] [place] [address] Care Team Providers Care Winder Helper Name Role Phone Aditya Castro MD Primary Care Provider [phone] Encounter Details Date Type Department Care Team (Late st Contact Info) Description 07/23/2019 Orders Only [facility] Oncology and Hematology - [place] [address] [facility] [address] [place] [address] Fernando Schmid MD [address] [facility] [address] [place] [address] Anemia in stage 4 chronic [...] disease documented in this encounter Care Teams Winder Helper Relationship Specialty Start Date End Date Aditya Castro MD PCP - General Student in an Organized Health Care Education/Training Program 09/11/18 documented as of this encounter
--- OUTSIDE RECORDS SUMMARY | 2024-09-07 23:29 | XMS_ITS | Encounter Summary ---
Author Organization [facility] Address [address] [place] [address] Care Team Providers Care Grain Commodity Manager Name Role Phone Aditya Castro MD Primary Care Provider [phone] Encounter Details Date Type Department Care Team (Late st Contact Info) Description 05/29/2019 Orders Only [facility] Oncology and Hematology - [place] [address] [facility] [address] [place] [address] Fernando Schmid MD [address] [facility] [address] [place] [address] Anemia in stage 4 chronic [...] MD HEMATOLOGY ORDERABLES Final Res ult NON [facility] documented in this encounter Visit Diagnoses Diagnosis Anemia in stage 4 chronic kidney disease documented in this encounter Care Teams Grain Commodity Manager Relationship Specialty Start Date End Date Aditya Castro MD PCP - General Student in an Organized Health Care Education/Training Program 09/11/18 documented as of this encounter
--- OUTSIDE RECORDS SUMMARY | 2024-09-07 23:29 | XMS_ITS | Encounter Summary ---
Author Organization [facility] Address [address] [place] [address] Care Team Providers Care Extended Insurance Clerk Name Role Phone Aditya Castro MD Primary Care Provider [phone] Encounter Details Date Type Department Care Team (Late st Contact Info) Description 10/27/2022 Orders Only [facility] Oncology and Hematology - [place] [address] [phone] Lucinda Sr History of deep vein thrombosis [...] embolism documented in this encounter Care Teams Extended Insurance Clerk Relationship Specialty Start Date End Date Aditya Castro MD PCP - General Student in an Organized Health Care Education/Training Program 09/11/18 documented as of this encounter
--- OUTSIDE RECORDS SUMMARY | 2024-09-07 23:29 | XMS_ITS | Encounter Summary ---
Author Organization [facility] [employer] [facility] Address [address] [place] [address] Care Team Providers Care Photovoltaic Installation Technician Name Role Phone Aditya Castro MD Primary Care Provider [phone] Encounter Details Date Type Department Care Team (Late st Contact Info) Description 05/15/2019 Orders Only [facility] Oncology and Hematology - [place] [address] [facility] [address] [place] [address] Fernando Schmid MD [address] [facility] [address] [place] [address] Anemia in stage 4 chronic [...] Final Res ult NON [facility] * BASIC METABOLIC PANEL (05/15/2019) Blood Fernando Schmid MD CHEMISTRY ORDERABLES Final Resu lt EXTERNAL LAB documented in this encounter Visit Diagnoses Diagnosis Anemia in stage 4 chronic kidney disease documented in this encounter Care Teams Photovoltaic Installation Technician Relationship Specialty Start Date End Date Aditya Castro MD PCP - General Student in an Organized Health Care Education/Training Program 09/11/18 documented as of this encounter
--- OUTSIDE RECORDS SUMMARY | 2024-09-07 23:29 | XMS_ITS | Encounter Summary ---
Author Organization [facility] [employer] [facility] Address [address] [place] [address] Care Team Providers Care Field Services Director Name Role Phone Aditya Castro MD Primary Care Provider [phone] Reason for Visit * Reason Onset Date Comments Needs Orders Written 07/30/2019 Encounter Details Date Type Department Care Team (Late st Contact Info) Description 07/30/2019 Telephone [facility] Oncology and Hematology - [place] [address] [place] [address] [facility] [address] [place] [address] Fernando Schmid MD [address] [facility] [address] [place] [address] Needs Orders Written Social History [...] to have for insurance approval for procrit. ECTOR [employer]OLF [employer]ALL documented in this encounter Plan of Treatment Not on file documented as of this encounter Visit Diagnoses Diagnosis Anemia of chronic renal failure, stage 4 (severe)- Primary Anemia in stage 4 chronic kidney disease documented in this encounter Care Teams Field Services Director Relationship Specialty Start Date End Date Aditya Castro MD PCP - General Student in an Organized Health Care Education/Training Program 09/11/18 documented as of this encounter
--- OUTSIDE RECORDS SUMMARY | 2024-09-07 23:29 | XMS_ITS | Encounter Summary ---
Author Organization [facility] Address [address] [place] [address] Care Team Providers Care Assistant Professor Of Philosophy Name Role Phone Aditya Castro MD Primary Care Provider [phone] Encounter Details Date Type Department Care Team (Late st Contact Info) Description 01/30/2019 Orders Only [facility] Oncology and Hematology - [place] [address] [facility] [address] [place] [address] Fernando Schmid MD [address] [facility] [address] [place] [address] Anemia in stage 4 chronic [...] MD HEMATOLOGY ORDERABLES Final Res ult NON [facility] documented in this encounter Visit Diagnoses Diagnosis Anemia in stage 4 chronic kidney disease documented in this encounter Care Teams Assistant Professor Of Philosophy Relationship Specialty Start Date End Date Aditya Castro MD PCP - General Student in an Organized Health Care Education/Training Program 09/11/18 documented as of this encounter
--- OUTSIDE RECORDS SUMMARY | 2024-09-07 23:29 | XMS_ITS | Encounter Summary ---
Author Organization [facility] Address [address] [place] [address] Care Team Providers Care Security Researcher Name Role Phone Aditya Castro MD Primary Care Provider [phone] Reason for Visit * Reason Comments Follow Up Results * Eval and Treat (Routine) - Closed Specialty Diagnoses / Procedures Referred By Aguilar lora Referred To Contact Oncology Diagnoses N18.4 Procedures Office Visit level 3-5 Aditya Castro MD Phone: tel: fax: Fernando Schmid MD [address] [place] [address] Phone: tel: fax: Referral ID Status Reason Start Date Expiration Date Visits Re quested Visits Authorized [id number] Closed 10/23/2018 01/23/2019 1 6 Encounter Details Date Type Department Care Team (Late st Contact Info) Description 10/23/2018 10:45 AM INFORMATICS SPECIALIST Office Visit [facility] Oncology and Hematology - [place] [address] [facility] [address] [place] [address] Fernando Schmid MD [address] [place] [address] Anemia in stage 4 chronic kidney [...] Comments Blood Pressure 165/69 10/23/2018 10:25 AM INFORMATICS SPECIALIST Pulse 69 10/23/2018 10:25 AM INFORMATICS SPECIALIST Temperature 36.9 ??C (98.4 ??F) 10/23/2018 1 0:25 AM INFORMATICS SPECIALIST Respiratory Rate 18 10/23/2018 10:2 5 AM INFORMATICS SPECIALIST Oxygen Saturation 96% 10/23/2018 10: 25 AM INFORMATICS SPECIALIST Inhaled Oxygen Concentration - - Weight 122.8 kg (270 lb 11.2 oz) 2018 10:25 AM INFORMATICS SPECIALIST Height 177.8 cm (5' 10 ) 10/23/2018 10: 25 AM INFORMATICS SPECIALIST Body Mass Index 38.84 10/23/2018 10:25 AM INFORMATICS SPECIALIST documented in this encounter Progress Notes [...] by Dr. Reyes. 10/23/2018 Fernando Schmid MD RMATICS SPECIALIST documented in this encounter Plan of Treatment Not on file documented as of this encounter Results * BASIC METABOLIC PANEL (01/11/2019) Blood Fernando Schmid MD CHEMISTRY ORDERABLES Final Resu lt Performing Organization Address City/[facility]/ZIP Co de Phone Number EXTERNAL LAB * (ABNORMAL) CBC WITH DIFFERENTIAL (01/11/2019) Blood Fernando Schmid MD HEMATOLOGY ORDERABLES Final Res ult Performing Organization Address City/[facility]/ZIP Co de Phone Number EXTERNAL LAB documented in this encounter Visit Diagnoses Diagnosis Anemia in stage 4 chronic kidney disease- Primary documented in this encounter Care Teams Security Researcher Relationship Specialty Start Date End Date Aditya Castro MD PCP - General Student in an Organized Health Care Education/Training Program 09/11/18 documented as of this encounter
--- OUTSIDE RECORDS SUMMARY | 2024-09-07 23:29 | XMS_ITS | Encounter Summary ---
Author Organization [facility] Address [address] [place] [address] Care Team Providers Care Pr Manager Name Role Phone Aditya Castro MD Primary Care Provider [phone] Reason for Visit * Reason Comments Follow Up 3 month Encounter Details Date Type Department Care Team (Late st Contact Info) Description 05/01/2019 10:00 AM CDT Office Visit [facility] Oncology and Hematology - [place] [address] [place] [address] [facility] [address] [place] [address] Fernando Schmid MD [address] [facility] [address] [place] [address] Anemia in stage 4 chronic [...] ORDERABLES Final Res ult Performing Organization Address [facility]/ZIP Co de Phone Number EXTERNAL LAB * BASIC METABOLIC PANEL (05/15/2019) Blood Fernando Schmid MD CHEMISTRY ORDERABLES Final Resu lt EXTERNAL LAB documented in this encounter Visit Diagnoses Diagnosis Anemia in stage 4 chronic kidney disease- Primary documented in this encounter Care Teams Pr Manager Relationship Specialty Start Date End Date Aditya Castro MD PCP - General Student in an Organized Health Care Education/Training Program 09/11/18 documented as of this encounter
--- OUTSIDE RECORDS SUMMARY | 2024-09-07 23:29 | XMS_ITS | Encounter Summary ---
Author Organization [facility] Address [address] [place] [address] Care Team Providers Care Collar Separator Name Role Phone Aditya Castro MD Primary Care Provider [phone] Reason for Visit * Reason Comments Follow Up DVT Encounter Details Date Type Department Care Team (Late st Contact Info) Description 11/04/2022 10:45 AM CDT Video Visit [facility] Oncology and Hematology - [place] [address] [place] [phone] Karri Ortiz MD [address] [place] [phone] History of deep vein thrombosis (Primary [...] 2 times daily. 30 Tablet 0 peg 355-tjimphkccwrf-nbhvapgc 1-0.2-0.2 % solution Administer 1 Drop in both eyes 4 times daily. Insulin Thornton, Disposable, (TRUEPLUS PEN NEEDLE) 31 gauge x [...] tablet Take 30 mg by mouth daily developer automatic. clopidogrel (PLAVIX) 75 mg Tablet Take 75 [...] dysuria; no frequency; no hesitancy; no hematuria SOFT TOP INSTALLER: Musculosketetal: Patient did not mention bone pain; [...] and aspirin. He will follow-up with a test development engineer. End-stage renal disease. Patient is on peritoneal [...] embolism documented in this encounter Care Teams Collar Separator Relationship Specialty Start Date End Date Aditya Castro MD PCP - General Student in an Organized Health Care Education/Training Program 09/11/18 documented as of this encounter
--- OUTSIDE RECORDS SUMMARY | 2024-09-07 23:29 | XMS_ITS | Encounter Summary ---
Author Organization [facility] Address [address] [place] [address] Care Team Providers Care Tree Tapping Laborer Name Role Phone Aditya Castro MD Primary Care Provider [phone] Encounter Details Date Type Department Care Team (Late st Contact Info) Description 01/23/2019 Orders Only [facility] Oncology and Hematology - [place] [address] [facility] [address] [place] [address] Fernando Schmid MD [address] [facility] [address] [place] [address] Anemia in stage 4 chronic [...] MD HEMATOLOGY ORDERABLES Final Res ult NON [facility] documented in this encounter Visit Diagnoses Diagnosis Anemia in stage 4 chronic kidney disease documented in this encounter Care Teams Tree Tapping Laborer Relationship Specialty Start Date End Date Aditya Castro MD PCP - General Student in an Organized Health Care Education/Training Program 09/11/18 documented as of this encounter
--- OUTSIDE RECORDS SUMMARY | 2024-09-07 23:29 | XMS_ITS | Encounter Summary ---
Author Organization [facility] Address [address] [place] [address] Care Team Providers Care Inspector Packer Glass Container Name Role Phone Aditya Castro MD Primary Care Provider [phone] Encounter Details Date Type Department Care Team (Late st Contact Info) Description 06/18/2019 Orders Only [facility] Oncology and Hematology - [place] [address] [facility] [address] [place] [address] Fernando Schmid MD [address] [facility] [address] [place] [address] Anemia in stage 4 chronic [...] MD HEMATOLOGY ORDERABLES Final Res ult NON [facility] documented in this encounter Visit Diagnoses Diagnosis Anemia in stage 4 chronic kidney disease documented in this encounter Care Teams Inspector Packer Glass Container Relationship Specialty Start Date End Date Aditya Castro MD PCP - General Student in an Organized Health Care Education/Training Program 09/11/18 documented as of this encounter
--- OUTSIDE RECORDS SUMMARY | 2024-09-07 23:29 | XMS_ITS | Encounter Summary ---
Author Organization [facility] Address [address] [place] [address] Care Team Providers Care Claims Collector Name Role Phone Aditya Castro MD Primary Care Provider [phone] Encounter Details Date Type Department Care Team (Late st Contact Info) Description 01/11/2019 Orders Only [facility] Oncology and Hematology - [place] [address] [facility] [address] [place] [address] Fernando Schmid MD [address] [facility] [address] [place] [address] Anemia in stage 4 chronic [...] ORDERABLES Final Res ult Performing Organization Address City/[facility]/ZIP Co de Phone Number EXTERNAL LAB documented in this encounter Visit Diagnoses Diagnosis Anemia in stage 4 chronic kidney disease documented in this encounter Care Teams Claims Collector Relationship Specialty Start Date End Date Aditya Castro MD PCP - General Student in an Organized Health Care Education/Training Program 09/11/18 documented as of this encounter
--- OUTSIDE RECORDS SUMMARY | 2024-09-07 23:29 | XMS_ITS | Encounter Summary ---
Author Organization [facility] Address [address] [facility] Attn: Epic Prelude ADT [place] [address] Care Team Providers Care B2B Sales Executive Name Role Phone Aditya Castro MD Primary Care Provider [phone] Encounter Details Date Type Department Care Team [...] Coronavirus/COVID-19? No / Unsure 09/21/2022 11:32 AM CHIEF DEPUTY CLERK/BAILIFF documented as of this encounter Plan of Treatment Not on file documented as of this encounter Visit Diagnoses Not on filedocumented in this encounter Care Teams B2B Sales Executive Relationship Specialty Start Date End Date Aditya Castro MD PCP - General Student in an Organized Health Care Education/Training Program 09/11/18 documented as of this encounter
--- OUTSIDE RECORDS SUMMARY | 2024-09-07 23:29 | XMS_ITS | Encounter Summary ---
Author Organization [facility] Address [address] [facility] Attn: Epic Prelude ADT [place] [address] Care Team Providers Care Scrap Piler Name Role Phone Aditya Castro MD Primary Care Provider [phone] Encounter Details Date Type Department Care Team [...] on filedocumented in this encounter Care Teams Scrap Piler Relationship Specialty Start Date End Date Aditya Castro MD PCP - General Student in an Organized Health Care Education/Training Program 09/11/18 documented as of this encounter
--- OUTSIDE RECORDS SUMMARY | 2024-09-07 23:29 | XMS_ITS | Encounter Summary ---
Author Organization [facility] [employer] [facility] Address [address] [place] [address] Care Team Providers Care Chief Internal Auditor Name Role Phone Aditya Castro MD Primary Care Provider [phone] Reason for Visit * Reason Comments Follow Up 3 month f/u w/labs Encounter Details Date Type Department Care Team (Late st Contact Info) Description 10/30/2019 11:00 AM CDT Office Visit [facility] Oncology and Hematology - [place] [address] [facility] [address] [place] [address] Fernando Schmid MD [address] [facility] [address] [place] [address] Anemia in stage 4 chronic [...] extremity documented in this encounter Care Teams Chief Internal Auditor Relationship Specialty Start Date End Date Aditya Castro MD PCP - General Student in an Organized Health Care Education/Training Program 09/11/18 documented as of this encounter
--- OUTSIDE RECORDS SUMMARY | 2024-09-07 23:29 | XMS_ITS | Encounter Summary ---
Author Organization [facility] Address [address] [place] [address] Care Team Providers Care Electrical Equipment Technician Name Role Phone Aditya Castro MD Primary Care Provider [phone] Encounter Details Date Type Department Care Team (Late st Contact Info) Description 07/31/2019 Orders Only [facility] Oncology and Hematology - [place] [address] [facility] [address] [place] [address] Fernando Schmid MD [address] [facility] [address] [place] [address] Anemia of chronic renal failure, [...] disease documented in this encounter Care Teams Electrical Equipment Technician Relationship Specialty Start Date End Date Aditya Castro MD PCP - General Student in an Organized Health Care Education/Training Program 09/11/18 documented as of this encounter
--- OUTSIDE RECORDS SUMMARY | 2024-09-07 23:29 | XMS_ITS | Encounter Summary ---
Author Organization [facility] Address [address] [place] [address] Care Team Providers Care Cnc Mill And Lathe Operator Name Role Phone Aditya Castro MD Primary Care Provider [phone] Encounter Details Date Type Department Care Team (Late st Contact Info) Description 04/15/2019 Telephone [facility] Oncology and Hematology - [place] [address] [facility] [address] [place] [address] Fernando Schmid MD [address] [facility] [address] [place] [address] Social History Tobacco Use Types [...] on filedocumented in this encounter Care Teams Cnc Mill And Lathe Operator Relationship Specialty Start Date End Date Aditya Castro MD PCP - General Student in an Organized Health Care Education/Training Program 09/11/18 documented as of this encounter
--- OUTSIDE RECORDS SUMMARY | 2024-09-07 23:29 | XMS_ITS | Encounter Summary ---
Author Organization [facility] [employer] [facility] Address [address] [place] [address] Care Team Providers Care Electronic Pagination System Operator Name Role Phone Aditya Castro MD Primary Care Provider [phone] Encounter Details Date Type Department Care Team (Late st Contact Info) Description 08/10/2022 Abstract [facility] Oncology and Hematology - [place] [address] [phone] Lucinda Sr Social History Tobacco Use Types [...] on filedocumented in this encounter Care Teams Electronic Pagination System Operator Relationship Specialty Start Date End Date Aditya Castro MD PCP - General Student in an Organized Health Care Education/Training Program 09/11/18 documented as of this encounter
--- OUTSIDE RECORDS SUMMARY | 2024-09-07 23:29 | XMS_ITS | Encounter Summary ---
Author Organization [facility] Address [address] [place] [address] Care Team Providers Care Narrative Writer Name Role Phone Aditya Castro MD Primary Care Provider [phone] Encounter Details Date Type Department Care Team (Late st Contact Info) Description 04/05/2019 Orders Only [facility] Oncology and Hematology - [place] [address] [facility] [address] [place] [address] Fernando Schmid MD [address] [facility] [address] [place] [address] Anemia in stage 4 chronic [...] MD HEMATOLOGY ORDERABLES Final Res ult NON [facility] documented in this encounter Visit Diagnoses Diagnosis Anemia in stage 4 chronic kidney disease documented in this encounter Care Teams Narrative Writer Relationship Specialty Start Date End Date Aditya Castro MD PCP - General Student in an Organized Health Care Education/Training Program 09/11/18 documented as of this encounter
--- OUTSIDE RECORDS SUMMARY | 2024-09-07 23:29 | XMS_ITS | Encounter Summary ---
Author Organization [facility] NORMACauses [facility] Address [address] [place] [address] Care Team Providers Care House Calls Nurse Name Role Phone Aditya Castro MD Primary Care Provider [phone] Reason for Visit * Reason Comments Follow Up Encounter Details Date Type Department Care Team (Late st Contact Info) Description 02/10/2023 11:00 AM CDT Office Visit [facility] Oncology and Hematology - [place] [address] [place] [address] [email or web address] [address] [place] [address] Fernando Schmid MD [address] [facility] [address] [place] [address] Chronic anemia (Primary Dx) Social [...] Body Mass Index 37.74 06/29/2022 6:00 PM BOTTOM CEMENTER documented in this encounter Progress Notes * [...] Note: Added automatically from request for surgery [id number] Right upper quadrant pain 09/24/2020 Pre-transplant evaluation for kidney transplant 03/24/2020 Overview Note: Images from the original note were not included. Juvenal Rodriguez Pilo 1970 Referring Financial Accountant: Leandro Reyes Dialysis Info: Type: PD Time: 160 days (11/05/2019) Blood Type: A Body mass index is 37.8 kg/m??. ALERTS Gas Combustion Engineer: Vashti Lizama NP Past Medical History: Diagnosis Date Anemia Arthritis Arthropathy osteo. back and knees see Dr. Norton CAD (coronary artery disease) Community acquired pneumonia 2017 [facility] hospitalized with double pneumonia Congestive heart failure Coronary artery disease Diabetes mellitus type 1 teens dx when he was 13. Insulin since he was dx. Insulin pump currently with dexacom. Vashti Lizama NPis knit goods press hand. DM (diabetes mellitus) TYPE 1 DVT (deep venous thrombosis) 2017 [facility]. ESRD on peritoneal dialysis Gout History of blood transfusion 2017 during admission for PA HLD (hyperlipidemia) HTN (hypertension) Hypercholesteremia 5 years on med Hypertension 30's on medications. Kidney disease Myocardial infarction 2017 [facility]. Stent x1 placed. Neuropathy feet Obstructive sleep [...] file Gets together: Not on file Attends jain service: Not on file Active member of [...] 07/02/2020: Committee Discussion Details: [facility]. [...] Impression: It is the impression of this vp digital marketing social media and crm that Juvenal Daigle has several positive factors [...] of safety concerns regarding immunosuppressants. Plan: general warehouse worker to provide supportive services as needed. Patient appears to be a reasonable candidate for transplant from a psychosocial perspective. -Post transplant arrangement forms are needed prior to being listed. Psychiatric Consult Recommended: No Transplant Assistant Import Manager: Radha Roper LCSW RD:05/14/2020 BMI= 40.0, Class [...] Plavix and aspirin has been discontinued by hop weigher. End-stage renal disease on peritoneal dialysis. Anemia [...] unspecified documented in this encounter Care Teams House Calls Nurse Relationship Specialty Start Date End Date Aditya Castro MD PCP - General Student in an Organized Health Care Education/Training Program 09/11/18 documented as of this encounter
--- OUTSIDE RECORDS SUMMARY | 2024-09-07 23:29 | XMS_ITS | Encounter Summary ---
Author Organization [facility] [employer] [facility] Address [address] [place] [address] Care Team Providers Care Stock Or Delivery Clerk Name Role Phone Aditya Castro MD Primary Care Provider [phone] Encounter Details Date Type Department Care Team (Late st Contact Info) Description 02/13/2023 Orders Only [facility] Oncology and Hematology - [place] [address] [facility] [address] [place] [address] Fernando Schmid MD [address] [facility] [address] [place] [address] Social History Tobacco Use Types [...] on filedocumented in this encounter Care Teams Stock Or Delivery Clerk Relationship Specialty Start Date End Date Aditya Castro MD PCP - General Student in an Organized Health Care Education/Training Program 09/11/18 documented as of this encounter
--- OUTSIDE RECORDS SUMMARY | 2024-09-07 23:29 | XMS_ITS | Encounter Summary ---
Author Organization [facility] Address [address] [place] [address] Care Team Providers Care Elevator Constructor Helper Name Role Phone Aditya Castro MD Primary Care Provider [phone] Encounter Details Date Type Department Care Team (Late st Contact Info) Description 10/19/2018 Orders Only [facility] Oncology and Hematology - [place] [address] [phone] Tanan Costa RN Anemia in stage 4 chronic [...] disease documented in this encounter Care Teams Elevator Constructor Helper Relationship Specialty Start Date End Date Aditya Castro MD PCP - General Student in an Organized Health Care Education/Training Program 09/11/18 documented as of this encounter
--- OUTSIDE RECORDS SUMMARY | 2024-09-07 23:29 | XMS_ITS | Encounter Summary ---
Author Organization [facility] Address [address] [place] [address] Care Team Providers Care Liability Claims Representative Name Role Phone Aditya Castro MD Primary Care Provider [phone] Encounter Details Date Type Department Care Team (Late st Contact Info) Description 07/12/2019 Orders Only [facility] Oncology and Hematology - [place] [address] [facility] [address] [place] [address] Fernando Schmid MD [address] [facility] [address] [place] [address] Anemia in stage 4 chronic [...] ORDERABLES Final Res ult NON [facility] documented in this encounter Visit Diagnoses Diagnosis Anemia in stage 4 chronic kidney disease documented in this encounter Care Teams Liability Claims Representative Relationship Specialty Start Date End Date Aditya Castro MD PCP - General Student in an Organized Health Care Education/Training Program 09/11/18 documented as of this encounter
--- OUTSIDE RECORDS SUMMARY | 2024-09-07 23:29 | XMS_ITS | Encounter Summary ---
Author Organization [facility] Address [address] [place] [address] Care Team Providers Care Pizzamaker Name Role Phone Aditya Castro MD Primary Care Provider [phone] Encounter Details Date Type Department Care Team (Late st Contact Info) Description 04/26/2019 Orders Only [facility] Oncology and Hematology - [place] [address] [facility] [facility] [address] [place] [address] Fernando Schmid MD [address] [facility] [address] [place] [address] Anemia in stage 4 chronic [...] ORDERABLES Final Resu lt Performing Organization Address City/[facility]/ZIP Co de Phone Number EXTERNAL LAB documented in this encounter Visit Diagnoses Diagnosis Anemia in stage 4 chronic kidney disease documented in this encounter Care Teams Pizzamaker Relationship Specialty Start Date End Date Aditya Castro MD PCP - General Student in an Organized Health Care Education/Training Program 09/11/18 documented as of this encounter
--- OUTSIDE RECORDS SUMMARY | 2024-09-07 23:29 | XMS_ITS | Encounter Summary ---
Author Organization [facility] Address [address] [facility] Attn: Epic Prelude ADT [place] [address] Care Team Providers Care Jerker Name Role Phone Aditya Castro MD Primary Care Provider [phone] Encounter Details Date Type Department Care Team [...] Coronavirus/COVID-19? No / Unsure 07/02/2022 12:57 PM ASSOCIATE ART DIRECTOR documented as of this encounter Plan of Treatment Not on file documented as of this encounter Visit Diagnoses Not on filedocumented in this encounter Care Teams Jerker Relationship Specialty Start Date End Date Aditya Castro MD PCP - General Student in an Organized Health Care Education/Training Program 09/11/18 documented as of this encounter
--- OUTSIDE RECORDS SUMMARY | 2024-09-07 23:29 | XMS_ITS | Encounter Summary ---
Author Organization [facility] Address [address] [place] [address] Care Team Providers Care Machine Pie Maker Name Role Phone Aditya Castro MD Primary Care Provider [phone] Encounter Details Date Type Department Care Team (Late st Contact Info) Description 02/20/2019 Orders Only [facility] Oncology and Hematology - [place] 2227 [facility] 200 [place] [address] Fernando Schmid MD 2227 [facility] [address] [place] [address] Anemia in stage 4 chronic [...] HEMATOLOGY ORDERABLES Final Res ult NON [facility] documented in this encounter Visit Diagnoses Diagnosis Anemia in stage 4 chronic kidney disease documented in this encounter Care Teams Machine Pie Maker Relationship Specialty Start Date End Date Aditya Castro MD PCP - General Student in an Organized Health Care Education/Training Program 09/11/18 documented as of this encounter
--- OUTSIDE RECORDS SUMMARY | 2024-09-07 23:29 | XMS_ITS | Encounter Summary ---
Author Organization [facility] HARJINDERNEMO Equipment [facility] Address [address] [place] [address] Care Team Providers Care Music Mixer Name Role Phone Aditya Castro MD Primary Care Provider [phone] Encounter Details Date Type Department Care Team (Late st Contact Info) Description 01/28/2020 Orders Only [facility] Oncology and Hematology - [place] [address] [address] Ramona Santos RN Anemia in stage 4 [...] disease documented in this encounter Care Teams Music Mixer Relationship Specialty Start Date End Date Aditya Castro MD PCP - General Student in an Organized Health Care Education/Training Program 09/11/18 documented as of this encounter
--- OUTSIDE RECORDS SUMMARY | 2024-09-07 23:29 | XMS_ITS | Encounter Summary ---
Author Organization [facility] Address [address] [place] [address] Care Team Providers Care Bar Assistant Name Role Phone Aditya Castro MD Primary Care Provider [phone] Encounter Details Date Type Department Care Team (Late st Contact Info) Description 10/23/2018 Orders Only [facility] Oncology and Hematology - [place] [address] [facility] 200 [place] [address] Fernando Schmid MD 2[address] [facility] [address] [place] [address] Anemia of chronic renal failure, [...] ORDERABLES Final Resu lt Performing Organization Address [facility] Co de Phone Number EXTERNAL LAB documented in this encounter Visit Diagnoses Diagnosis Anemia of chronic renal failure, stage 4 (severe)- Primary documented in this encounter Care Teams Bar Assistant Relationship Specialty Start Date End Date Aditya Castro MD PCP - General Student in an Organized Health Care Education/Training Program 09/11/18 documented as of this encounter
--- OUTSIDE RECORDS SUMMARY | 2024-09-07 23:30 | XMS_ITS | Encounter Summary ---
Author Organization [facility] Address [address] [place] [address] Care Team Providers Care Dialysis Clinical Manager Name Role Phone Jhonatan Bellamy MD Primary Care Provider [phone] Reason for Visit * Reason Onset Date Comments Medication Review 01/26/2018 low iron-pt to start Ferrous Sulfate 325 mg po bid per Dr. Schmid Encounter Details Date Type Department Care Team (Late st Contact Info) Description 01/26/2018 Telephone [facility] BREAST [facility] 2[address] [email or web address] 200 [place] [address] [place] [address] [place] [address] [address] [place] [address] Medication Review (low iron-pt to [...] on filedocumented in this encounter Care Teams Dialysis Clinical Manager Relationship Specialty Start Date End Date Jhonatan Bellamy MD [address] [place] [phone] PCP - General Family Practice 06/05/17 09/10/18 documented as of this encounter
--- OUTSIDE RECORDS SUMMARY | 2024-09-07 23:30 | XMS_ITS | Encounter Summary ---
Author Organization [facility] Address [address] [place] [address] Care Team Providers Care Asbestos Shingle Roofer Name Role Phone Jhonatan Bellamy MD Primary Care Provider [phone] Encounter Details Date Type Department Care Team (Late st Contact Info) Description 07/19/2018 Orders Only [facility] Oncology and Hematology - [place] [address] [address] Tanna Costa RN Social History [...] on filedocumented in this encounter Care Teams Asbestos Shingle Roofer Relationship Specialty Start Date End Date Jhonatan Bellamy MD [address] [place] [address] PCP - General Family Practice 06/05/17 09/10/18 documented as of this encounter
--- OUTSIDE RECORDS SUMMARY | 2024-09-07 23:30 | XMS_ITS | Encounter Summary ---
Author Organization [facility] Address [address] [place] [address] Care Team Providers Care Tetryl Boiling Tub Operator Name Role Phone Jhonatan Bellamy MD Primary Care Provider [phone] Encounter Details Date Type Department Care Team (Late st Contact Info) Description 01/18/2018 Orders Only [facility] Oncology and Hematology - [place] [address] [phone] Tanna Costa, RN Anemia of chronic renal [...] (severe) documented in this encounter Care Teams Tetryl Boiling Tub Operator Relationship Specialty Start Date End Date Jhonatan Bellamy MD [address] [place] [address] PCP - General Family Practice 06/05/17 09/10/18 documented as of this encounter
--- OUTSIDE RECORDS SUMMARY | 2024-09-07 23:30 | XMS_ITS | Encounter Summary ---
Author Organization [facility] Address [address] [place] [address] Care Team Providers Care Supervisor Cigar Processing Name Role Phone Jhonatan Bellamy MD Primary Care Provider [phone] Encounter Details Date Type Department Care Team (Late st Contact Info) Description 04/04/2018 Orders Only [facility] Oncology and Hematology - [place] [address] [facility] 200 [place] [address] Fernando Schmid MD 2227 [facility] [address] [place] [address] Anemia of chronic renal failure, [...] vein documented in this encounter Care Teams Supervisor Cigar Processing Relationship Specialty Start Date End Date Jhonatan Bellamy MD [address] [place] [address] PCP - General Family Practice 06/05/17 09/10/18 documented as of this encounter
--- OUTSIDE RECORDS SUMMARY | 2024-09-07 23:30 | XMS_ITS | Encounter Summary ---
Author Organization [facility] Address [address] [place] [address] Care Team Providers Care Tandem Operator Name Role Phone Jhonatan Bellamy MD Primary Care Provider [phone] Encounter Details Date Type Department Care Team (Late st Contact Info) Description 06/20/2018 Orders Only [facility] Oncology and Hematology - [place] 2227 [facility] 200 [place] [address] Fernando Schmid MD [address] [facility] [address] [place] [address] Social History Tobacco Use Types [...] on filedocumented in this encounter Care Teams Tandem Operator Relationship Specialty Start Date End Date Jhonatan Bellamy MD [address] [place] [phone] PCP - General Family Practice 06/05/17 09/10/18 documented as of this encounter
--- OUTSIDE RECORDS SUMMARY | 2024-09-07 23:30 | XMS_ITS | Encounter Summary ---
Author Organization [facility] Address [address] [place] [address] Care Team Providers Care Flattening Press Operator Name Role Phone Jhonatan Bellamy MD Primary Care Provider [phone] Reason for Visit * Reason Comments Follow Up Encounter Details Date Type Department Care Team (Late st Contact Info) Description 01/18/2018 10:15 AM CDT Office Visit [facility] Oncology and Hematology - [place] 2227 [facility] 200 [place] [address] Fernando Schmid MD [address] [facility] [address] [place] [address] Acute deep vein thrombosis (DVT) [...] accepted: Orders * Addendum Note - Valerie Cosat RN - 01/18/2018 10:15 AM CDTAddended by: [...] Final Resu lt Performing Organization Address [facility] Co de Phone Number [facility] * IRON, TIBC, AND PERCENT SATURATION (02/28/2018) Blood Fernando Schmid MD CHEMISTRY ORDERABLES Final Resu lt Performing Organization Address [facility]/ZIP Co de Phone Number EXTERNAL LAB * (ABNORMAL) BASIC METABOLIC PANEL (01/19/2018) Blood Fernando Schmid MD CHEMISTRY ORDERABLES Final Resu lt Performing Organization Address [facility]/ZIP Co de Phone Number EXTERNAL LAB * (ABNORMAL) VITAMIN B12 AND FOLATE (01/18/2018) Blood Fernando Schmid MD CHEMISTRY ORDERABLES Final Resu lt Performing Organization Address [facility] Co de Phone Number EXTERNAL LAB * (ABNORMAL) IRON, TIBC, AND PERCENT SATURATION (01/18/2018) Blood Fernando Schmid MD CHEMISTRY ORDERABLES Final Resu lt Performing Organization Address [facility] Co de Phone Number EXTERNAL LAB * FERRITIN (01/18/2018) Blood Fernando Schmid MD CHEMISTRY ORDERABLES Final Resu lt Performing Organization Address [facility] Co de Phone Number EXTERNAL LAB documented in this encounter Visit Diagnoses Diagnosis Acute deep vein thrombosis (DVT) of distal end of right lower extremity- Primary History of anemia due to chronic kidney disease documented in this encounter Care Teams Flattening Press Operator Relationship Specialty Start Date End Date Jhonatan Bellamy MD [address] [place] [address] PCP - General Family Practice 06/05/17 09/10/18 documented as of this encounter
--- OUTSIDE RECORDS SUMMARY | 2024-09-07 23:30 | XMS_ITS | Encounter Summary ---
Author Organization [facility] Address [address] [place] [address] Care Team Providers Care Manufacturing Associate Name Role Phone Aditya Castro MD Primary Care Provider [phone] Reason for Visit * Reason Comments Medication Refill Encounter Details Date Type Department Care Team (Late st Contact Info) Description 09/08/2018 Refill [facility] Oncology and Hematology - [place] 2227 [facility] 200 [place] [address] Fernando Schmid MD 2227 [facility] [address] [place] [address] Social History Tobacco Use Types [...] on filedocumented in this encounter Care Teams Manufacturing Associate Relationship Specialty Start Date End Date Aditya Castro MD PCP - General Student in an Organized Health Care Education/Training Program 09/11/18 documented as of this encounter
--- OUTSIDE RECORDS SUMMARY | 2024-09-07 23:30 | XMS_ITS | Encounter Summary ---
Author Organization [facility] Address [address] [place] [address] Care Team Providers Care Electric Motor Mechanic Name Role Phone Jhonatan Bellamy MD Primary Care Provider [phone] Encounter Details Date Type Department Care Team (Late st Contact Info) Description 02/28/2018 Orders Only [facility] Oncology and Hematology - [place] [address] [address] Tanna Costa, RN Anemia of [...] Resu lt Performing Organization Address [facility] Co de Phone Number [facility] * IRON, TIBC, AND PERCENT SATURATION (02/28/2018) Blood Fernando Schmid MD CHEMISTRY ORDERABLES Final Resu lt Performing Organization Address [facility] Co de Phone Number EXTERNAL LAB * (ABNORMAL) CBC WITH DIFFERENTIAL (02/28/2018) Blood Fernando Schmid MD HEMATOLOGY ORDERABLES Final Res ult Performing Organization Address [facility] de Phone Number EXTERNAL LAB documented in this encounter Visit Diagnoses Diagnosis Anemia of chronic renal failure, stage 4 (severe) History of anemia due to chronic kidney disease documented in this encounter Care Teams Electric Motor Mechanic Relationship Specialty Start Date End Date Jhonatan Bellamy MD [address] [place] [address] PCP - General Family Practice 06/05/17 09/10/18 documented as of this encounter
--- OUTSIDE RECORDS SUMMARY | 2024-09-07 23:30 | XMS_ITS | Encounter Summary ---
Author Organization [facility] Address [address] [place] [address] Care Team Providers Care Airplane Woodworker Name Role Phone Jhonatan Bellamy MD Primary Care Provider [phone] Reason for Visit * Reason Comments Medication Refill Encounter Details Date Type Department Care Team (Late st Contact Info) Description 06/22/[address] [facility] Oncology and Hematology - [place] 2227 [facility] 200 [place] [address] Fernando Schmid MD 2227 [facility] [address] [place] [address] Social History Tobacco Use Types [...] MD [address] [place] [phone] PCP - General Family Practice 06/05/17 09/10/18 documented as of this encounter
--- OUTSIDE RECORDS SUMMARY | 2024-09-07 23:30 | XMS_ITS | Encounter Summary ---
Author Organization [facility] Address [address] [place] [address] Care Team Providers Care State Highway Police Officer Name Role Phone Jhonatan Bellamy MD Primary Care Provider [phone] Encounter Details Date Type Department Care Team (Late st Contact Info) Description 04/30/2018 Orders Only [facility] Oncology and Hematology - [place] [address] [address] Tanna Costa, RN Anemia of chronic renal [...] (severe) documented in this encounter Care Teams State Highway Police Officer Relationship Specialty Start Date End Date Jhonatan Bellamy MD [address] [place] [phone] PCP - General Family Practice 06/05/17 09/10/18 documented as of this encounter
--- OUTSIDE RECORDS SUMMARY | 2024-09-07 23:30 | XMS_ITS | Encounter Summary ---
Author Organization [facility] Address [address] [place] [address] Care Team Providers Care Educational Specialist Name Role Phone Jhonatan Bellamy MD Primary Care Provider [phone] Encounter Details Date Type Department Care Team (Late st Contact Info) Description 06/04/2018 Orders Only [facility] Oncology and Hematology - [place] [address] [address] Tanna Costa RN Anemia of chronic renal [...] (severe) documented in this encounter Care Teams Educational Specialist Relationship Specialty Start Date End Date Jhonatan Bellamy MD [address] [place] [address] PCP - General Family Practice 06/05/17 09/10/18 documented as of this encounter
--- OUTSIDE RECORDS SUMMARY | 2024-09-07 23:30 | XMS_ITS | Encounter Summary ---
Author Organization [facility] Address [address] [place] [address] Care Team Providers Care Banquet Manager Name Role Phone Aditya Castro MD Primary Care Provider [phone] Reason for Visit * Reason Comments Follow Up Results * Eval and Treat (Routine) - Closed Specialty Diagnoses / Procedures Referred By Aguilar t Referred To Contact Diagnoses N18.4, D63.1 Procedures Office Visit Jhonatan Bellamy MD [address] [place] [address] Phone: tel: fax: Fernando Schmid MD [address] [place] [address] Phone: tel: fax: Referral ID Status Reason Start Date Expiration Date Visits Re quested Visits Authorized [id number] Closed 06/15/2018 09/13/2018 1 6 Encounter Details Date Type Department Care Team (Late st Contact Info) Description 09/11/2018 9:45 AM ENGINE PILOT Office Visit [facility] Oncology and Hematology - [place] [address] [facility] 200 [place] [address] Fernando Schmid MD [address] [place] [address] Anemia in stage 4 chronic kidney [...] Comments Blood Pressure 149/78 09/11/2018 9:47 AM ENGINE PILOT Pulse 64 09/11/2018 9:47 AM ENGINE PILOT Temperature 36.8 ??C (98.2 ??F) 09/11/2018 9:47 AM CS T Respiratory Rate - - Oxygen Saturation 96% 09/11/2018 9:47 AM ENGINE PILOT Inhaled Oxygen Concentration - - Weight 122.3 kg (269 lb 9.6 oz) 09/11/2018 9:47 AM ENGINE PILOT Height 177.8 cm (5' 10 ) 09/11/2018 9:47 AM ENGINE PILOT Body Mass Index 38.68 09/11/2018 9:47 AM ENGINE PILOT documented in this encounter Progress Notes [...] is on Plavix. 09/11/2018 Fernando Schmid MD NE PILOT documented in this encounter Plan of Treatment Not on file documented as of this encounter Results * (ABNORMAL) CBC WITH DIFFERENTIAL (10/23/2018) Blood us Fernando Schmid MD HEMATOLOGY ORDERABLES Final Res ult EXTERNAL LAB documented in this encounter Visit Diagnoses Diagnosis Anemia in stage 4 chronic kidney disease- Primary documented in this encounter Care Teams Banquet Manager Relationship Specialty Start Date End Date Aditya Castro MD PCP - General Student in an Organized Health Care Education/Training Program 09/11/18 documented as of this encounter
--- OUTSIDE RECORDS SUMMARY | 2024-09-07 23:30 | XMS_ITS | Encounter Summary ---
Author Organization [facility] Address [address] [place] [address] Care Team Providers Care Mutual Fund Sales Agent Name Role Phone Jhonatan Bellamy MD Primary Care Provider [phone] Reason for Visit * Reason Comments Follow Up Encounter Details Date Type Department Care Team (Late st Contact Info) Description 04/16/2018 1:00 PM CDT Office Visit [facility] Oncology and Hematology - [place] [address] [facility] 200 [place] [address] Fernando Schmid MD 2227 [facility] [address] [place] [address] Anemia of chronic renal failure, [...] Primary documented in this encounter Care Teams Mutual Fund Sales Agent Relationship Specialty Start Date End Date Jhonatan Bellamy MD [address] [place] [address] PCP - General Family Practice 06/05/17 09/10/18 documented as of this encounter
--- OUTSIDE RECORDS SUMMARY | 2024-09-07 23:30 | XMS_ITS | Encounter Summary ---
Author Organization [facility] Address [address] [place] [address] Care Team Providers Care Pointer Machine Operator Name Role Phone Jhonatan Bellamy MD Primary Care Provider [phone] Reason for Visit * Reason Comments Medication Refill Encounter Details Date Type Department Care Team (Late st Contact Info) Description 08/14/2018 Refill [facility] Oncology and Hematology - [place] 2227 [facility] 200 [place] [address] Fernando Schmid MD 2227 [facility] [address] [place] [address] Social History Tobacco Use Types [...] on filedocumented in this encounter Care Teams Pointer Machine Operator Relationship Specialty Start Date End Date Jhonatan Bellamy MD [address] [place] [address] PCP - General Family Practice 06/05/17 09/10/18 documented as of this encounter
--- OUTSIDE RECORDS SUMMARY | 2024-09-07 23:30 | XMS_ITS | Encounter Summary ---
Author Organization [facility] Address [address] [place] [address] Care Team Providers Care Frame Trimmer Name Role Phone Jhonatan Bellamy MD Primary Care Provider [phone] Encounter Details Date Type Department Care Team (Late st Contact Info) Description 05/14/2018 Orders Only [facility] Oncology and Hematology - [place] [address] [address] Tanna Costa, RN Anemia of chronic renal [...] (severe) documented in this encounter Care Teams Frame Trimmer Relationship Specialty Start Date End Date Jhonatan Bellamy MD [address] [place] [address] PCP - General Family Practice 06/05/17 09/10/18 documented as of this encounter
--- OUTSIDE RECORDS SUMMARY | 2024-09-07 23:30 | XMS_ITS | Encounter Summary ---
Author Organization [facility] Address [address] [place] [address] Care Team Providers Care Mail Sorter And Delivery Name Role Phone Jhonatan Bellamy MD Primary Care Provider [phone] Encounter Details Date Type Department Care Team (Late st Contact Info) Description 01/23/2018 Orders Only [facility] Oncology and Hematology - [place] [address] [address] Tanna Costa, RN Social History [...] on filedocumented in this encounter Care Teams Mail Sorter And Delivery Relationship Specialty Start Date End Date Jhonatan Bellamy MD [address] [place] [address] PCP - General Family Practice 06/05/17 09/10/18 documented as of this encounter
--- OUTSIDE RECORDS SUMMARY | 2024-09-07 23:30 | XMS_ITS | Encounter Summary ---
Author Organization [facility] Address [address] [place] [address] Care Team Providers Care Video Game Engineer Name Role Phone Jhonatan Bellamy MD Primary Care Provider [phone] Encounter Details Date Type Department Care Team (Late st Contact Info) Description 02/06/2018 Orders Only [facility] Oncology and Hematology - [place] [address] [address] Tanna Costa, RN Anemia of chronic renal [...] (severe) documented in this encounter Care Teams Video Game Engineer Relationship Specialty Start Date End Date Jhonatan Bellamy MD [address] [place] [address] PCP - General Family Practice 06/05/17 09/10/18 documented as of this encounter
--- OUTSIDE RECORDS SUMMARY | 2024-09-07 23:30 | XMS_ITS | Encounter Summary ---
Author Organization [facility] Address [address] [place] [address] Care Team Providers Care Precision Millwright Name Role Phone Jhonatan Bellamy MD Primary Care Provider [phone] Encounter Details Date Type Department Care Team (Late st Contact Info) Description 04/16/2018 Orders Only [facility] Oncology and Hematology - [place] [address] [address] Tanna Costa, RN Anemia of chronic renal [...] (severe) documented in this encounter Care Teams Precision Millwright Relationship Specialty Start Date End Date Jhonatan Bellamy MD [address] [place] [address] PCP - General Family Practice 06/05/17 09/10/18 documented as of this encounter
--- OUTSIDE RECORDS SUMMARY | 2024-09-07 23:30 | XMS_ITS | Encounter Summary ---
Author Organization [facility] Address [address] [place] [address] Care Team Providers Care Spot Worker Name Role Phone Jhonatan Bellamy MD Primary Care Provider [phone] Encounter Details Date Type Department Care Team (Late st Contact Info) Description 07/18/2018 Orders Only [facility] Oncology and Hematology - [place] [address] [facility] [address] [place] [address] Fernando Schmid MD 2[address] [facility] [address] [place] [address] Social History Tobacco Use Types [...] on filedocumented in this encounter Care Teams Spot Worker Relationship Specialty Start Date End Date Jhonatan Bellamy MD [address] [place] [phone] PCP - General Family Practice 06/05/17 09/10/18 documented as of this encounter
--- OUTSIDE RECORDS SUMMARY | 2024-09-07 23:30 | XMS_ITS | Encounter Summary ---
Author Organization [facility] Address [address] [place] [address] Care Team Providers Care Systems Accountant Name Role Phone Jhonatan Bellamy MD Primary Care Provider [phone] Encounter Details Date Type Department Care Team (Late st Contact Info) Description 03/28/[address] [facility] Oncology and Hematology - [place] [address] [phone] Tanna Costa RN Anemia of chronic renal [...] (severe) documented in this encounter Care Teams Systems Accountant Relationship Specialty Start Date End Date Jhonatan Bellamy MD [address] [place] [address] PCP - General Family Practice 06/05/17 09/10/18 documented as of this encounter
--- OUTSIDE RECORDS SUMMARY | 2024-09-07 23:30 | XMS_ITS | Encounter Summary ---
Author Organization [facility] Address [address] [place] [address] Care Team Providers Care Link Trainer Mechanic Name Role Phone Jhonatan Bellamy MD Primary Care Provider Reason for Visit * Reason Comments Follow Up Results * Eval and Treat (Routine) - Closed Specialty Diagnoses / Procedures Referred By Aguilar t Referred To Contact Diagnoses N18.4, D63.1 Procedures Office Visit Jhonatan Bellamy MD [address] [place] [address] Phone: tel: fax: Fernando Schmid MD [address] [employer] [address] [place] [address] Phone: tel: fax: Referral ID Status Reason Start Date Expiration Date Visits Re quested Visits Authorized [id number] Closed 06/15/2018 09/13/2018 1 6 Encounter Details Date Type Department Care Team (Late st Contact Info) Description 07/17/2018 11:00 AM INSURANCE PLAN SPECIALIST Office Visit [facility] Oncology and Hematology - [place] [address] [facility] [address] [place] [address] Fernando Schmid MD [address] [employer] [address] [place] [address] Anemia of chronic renal failure, [...] Comments Blood Pressure 162/75 07/17/2018 11:07 AM INSURANCE PLAN SPECIALIST Pulse 60 07/17/2018 11:07 AM INSURANCE PLAN SPECIALIST Temperature 36.7 ??C (98 ??F) 07/17/2018 11: 07 AM INSURANCE PLAN SPECIALIST Respiratory Rate - - Oxygen Saturation 96% 07/17/2018 11: 07 AM INSURANCE PLAN SPECIALIST Inhaled Oxygen Concentration - - Weight 120.1 kg (264 lb 11.2 oz) 2017 11:07 AM INSURANCE PLAN SPECIALIST Height 177.8 cm (5' 10 ) 07/17/2018 11: 07 AM INSURANCE PLAN SPECIALIST Body Mass Index 37.98 07/17/2018 11:07 AM INSURANCE PLAN SPECIALIST documented in this encounter Progress Notes [...] is on Plavix. 07/17/2018 Fernando Schmid MD RANCE PLAN SPECIALIST documented in this encounter Plan of Treatment Not on file documented as of this encounter Visit Diagnoses Diagnosis Anemia of chronic renal failure, stage 4 (severe)- Primary Chronic deep vein thrombosis (DVT) of right lower extremity, unspecified vein documented in this encounter Care Teams Link Trainer Mechanic Relationship Specialty Start Date End Date Jhonatan Bellamy MD [address] [place] [address] PCP - General Family Practice 06/05/17 09/10/18 documented as of this encounter
--- OUTSIDE RECORDS SUMMARY | 2024-09-07 23:30 | XMS_ITS | Encounter Summary ---
Author Organization [facility] Address [address] [place] [address] Care Team Providers Care Highway Painter Name Role Phone Jhonatan Bellamy MD Primary Care Provider [phone] Reason for Referral * Radiology Services (Routine) - Closed Specialty Diagnoses / Procedures Referred By Aguilar t Referred To Contact Diagnoses Chronic deep vein thrombosis (DVT) of right lower extremity, unspecified vein Procedures US VENOUS DOPPLER LEG RIGHT Fernando Schmid MD [address] [employer] [address] [address] Phone: tel: fax: [address] [address] Referral ID Status Reason Start Date Expiration Date Visits Requested Visits Authorized [id number] Closed Ordering Department To Schedule 06/15/2018 07/16/2019 1 1 Reason for Visit * Reason Comments Follow Up Results * Eval and Treat (Routine) - Closed Specialty Diagnoses / Procedures Referred By Contac t Referred To Contact Diagnoses N18.4, D63.1 Procedures Office Visit Jhonatan Bellamy MD [address] [place] [address] Phone: tel: fax: Fernando Schmid MD [address] [employer] [address] [place] [phone] Phone: tel: fax: Referral ID Status Reason Start Date Expiration Date Visits Re quested Visits Authorized [id number] Closed 06/15/2018 09/13/2018 1 6 Encounter Details Date Type Department Care Team (Late st Contact Info) Description 06/15/2018 9:00 AM CDT Office Visit [facility] Oncology and Hematology - [place] 2[address] [facility] 200 [place] [address] Fernando Schmid MD [address] [facility] [address] [place] [address] Chronic deep vein thrombosis (DVT) [...] Primary documented in this encounter Care Teams Highway Painter Relationship Specialty Start Date End Date Jhonatan Bellamy MD [address] [place] [address] PCP - General Family Practice 06/05/17 09/10/18 documented as of this encounter
--- OUTSIDE RECORDS SUMMARY | 2024-09-07 23:30 | XMS_ITS | Encounter Summary ---
Author Organization [facility] Address [address] [place] [address] Care Team Providers Care Perinatal Educator Name Role Phone Aditya Castro MD Primary Care Provider [phone] Encounter Details Date Type Department Care Team (Late st Contact Info) Description 09/10/2018 Orders Only [facility] Oncology and Hematology - [place] [address] [facility] 200 [place] [address] Fernando Schmid MD 2[address] [facility] [address] [place] [address] Chronic deep vein thrombosis (DVT) [...] ORDERABLES Final Res ult Performing Organization Address City/[facility]/ZIP Co de Phone Number EXTERNAL LAB * [...] vein documented in this encounter Care Teams Perinatal Educator Relationship Specialty Start Date End Date Aditya Castro MD PCP - General Student in an Organized Health Care Education/Training Program 09/11/18 documented as of this encounter
--- OUTSIDE RECORDS SUMMARY | 2024-09-07 23:30 | XMS_ITS | Encounter Summary ---
Author Organization [facility] Address [address] [place] [address] Care Team Providers Care Snuff Container Inspector Name Role Phone Jhonatan Bellamy MD Primary Care Provider Reason for Visit * Reason Onset Date Comments Medication Problem 01/22/2018 Encounter Details Date Type Department Care Team (Late st Contact Info) Description 01/22/2018 Telephone [facility] Oncology and Hematology - [place] 2[address] [facility] 200 [place] [address] Fernando Schmid MD 2[address] [facility] [address] [place] [address] Medication Problem Social History Tobacco [...] insurance. I called Medicaid , [place] [id number], pt no longers had MEDCO and pt will have meridian as of 02/18/18. Tanna Costa, RN documented in this encounter Plan of Treatment Not on file documented as of this encounter Visit Diagnoses Not on filedocumented in this encounter Care Teams Snuff Container Inspector Relationship Specialty Start Date End Date Jhonatan Bellamy MD [address] [place] [address] PCP - General Family Practice 06/05/17 09/10/18 documented as of this encounter
--- OUTSIDE RECORDS SUMMARY | 2024-09-07 23:30 | XMS_ITS | Encounter Summary ---
Author Organization [facility] Address [address] [place] [address] Care Team Providers Care Color Control Operator Name Role Phone Jhonatan Bellamy MD Primary Care Provider [phone] Encounter Details Date Type Department Care Team (Late st Contact Info) Description 01/12/2018 Orders Only [facility] Oncology and Hematology - [place] [address] [facility] 200 [place] [address] Fernando Schmid MD 2[address] [facility] [address] [place] [address] Acute deep vein thrombosis (DVT) [...] extremity documented in this encounter Care Teams Color Control Operator Relationship Specialty Start Date End Date Jhonatan Bellamy MD [address] [place] [address] PCP - General Family Practice 06/05/17 09/10/18 documented as of this encounter
--- OUTSIDE RECORDS SUMMARY | 2024-09-07 23:30 | XMS_ITS | Encounter Summary ---
Author Organization [facility] Address [address] [place] [address] Care Team Providers Care Seat Joiner Name Role Phone Jhonatan Bellamy MD Primary Care Provider [phone] Encounter Details Date Type Department Care Team (Late st Contact Info) Description 02/20/2018 Orders Only [facility] Oncology and Hematology - [place] [address] [address] Tanna Costa, RN Anemia of [...] (severe) documented in this encounter Care Teams Seat Joiner Relationship Specialty Start Date End Date Jhonatan Bellamy MD [address] [place] [address] PCP - General Family Practice 06/05/17 09/10/18 documented as of this encounter
--- OUTSIDE RECORDS SUMMARY | 2024-09-07 23:30 | XMS_ITS | Encounter Summary ---
Author Organization [facility] Address [address] [place] [address] Care Team Providers Care Hollow Handle Bench Worker Name Role Phone Jhonatan Bellamy MD Primary Care Provider Reason for Referral * Outpatient Services (Routine) - Closed Specialty Diagnoses / Procedures Referred By Aguilar lora Referred To Contact Diagnoses Anemia of chronic renal failure, stage 4 (severe) Chronic deep vein thrombosis (DVT) of right lower extremity, unspecified vein Procedures US VENOUS DOPPLER LEG RIGHT Fernando Schmid MD [address] [employer] [address] [place] [address] Phone: tel: fax: [place] [address] [place] [address] Phone: tel: fax: Referral ID Status Reason Start Date Expiration Date Visits Requested Visits Authorized [id number] Closed Ordering Department To Schedule 02/28/2018 03/31/2019 1 1 Reason for Visit * Reason Comments Follow Up Labs Encounter Details Date Type Department Care Team (Late st Contact Info) Description 02/28/2018 1:30 PM CDT Office Visit [facility] Oncology and Hematology - [place] [address] [facility] 200 [place] [address] Fernando Schmid MD [address] [employer] [address] [place] [address] Anemia of chronic renal failure, stage [...] ult Performing Organization Address [facility] de Phone Number EXTERNAL LAB * BASIC METABOLIC PANEL (04/16/2018) Blood Fernando Schmid MD CHEMISTRY ORDERABLES Final Resu lt Performing Organization Address [facility] Co de Phone Number EXTERNAL LAB * US VENOUS DOPPLER LEG RIGHT (04/04/2018) Anatomical Region Laterality Modality Lower Extremity Other Fernando Schmid MD US ORDERABLES Final Result documented in this encounter Visit Diagnoses Diagnosis Anemia of chronic renal failure, stage 4 (severe)- Primary Chronic deep vein thrombosis (DVT) of right lower extremity, unspecified vein documented in this encounter Care Teams Hollow Handle Bench Worker Relationship Specialty Start Date End Date Jhonatan Bellamy MD [address] [place] [phone] PCP - General Family Practice 06/05/17 09/10/18 documented as of this encounter
--- OUTSIDE RECORDS SUMMARY | 2024-09-07 23:30 | XMS_ITS | Encounter Summary ---
Author Organization [facility] Address [address] [place] [address] Care Team Providers Care Blueprint Trimmer Name Role Phone Jhonatan Bellamy MD Primary Care Provider [phone] Encounter Details Date Type Department Care Team (Late st Contact Info) Description 07/31/2018 Orders Only [facility] Oncology and Hematology - [place] [address] [facility] 200 [place] [address] Fernando Schmid MD 2[address] [facility] [address] [place] [address] Anemia in stage 4 chronic [...] ORDERABLES Final Res ult Performing Organization Address City/[facility]/ZIP Co de Phone Number NON [facility] * (ABNORMAL) CBC WITH DIFFERENTIAL (06/12/2019) Blood Fernando Schmid MD HEMATOLOGY ORDERABLES Final Res ult Performing Organization Address [facility] Co de Phone Number NON [facility] * (ABNORMAL) CBC WITH DIFFERENTIAL (05/29/2019) Blood us Fernando Schmid MD HEMATOLOGY ORDERABLES Final Res ult Performing Organization Address [facility] Co de Phone Number NON [facility] * (ABNORMAL) CBC WITH DIFFERENTIAL (05/15/2019) Blood us Fernando Schmid MD HEMATOLOGY ORDERABLES Final Res ult Performing Organization Address [facility]/ZIP Co de Phone Number [facility] [...] Performing Organization Address [facility] Co de Phone Number NON [facility] * (ABNORMAL) CBC WITH DIFFERENTIAL (01/29/2019) Blood us Fernando Schmid MD HEMATOLOGY ORDERABLES Final Res ult Performing Organization Address [facility]/ZIP Co de Phone Number NON [facility] [...] ORDERABLES Final Res ult Performing Organization Address City/[facility]/ZIP Co de Phone Number NON [facility] * CBC WITH DIFFERENTIAL (09/25/2018) Blood us Fernando Schmid MD HEMATOLOGY ORDERABLES Final Res ult NON [facility] * (ABNORMAL) CBC WITH DIFFERENTIAL (08/16/2018) Blood us Fernando Schmid MD HEMATOLOGY ORDERABLES Final Res ult Performing Organization Address [facility] Co de Phone Number NON [facility] * CBC WITH DIFFERENTIAL (07/31/2018) Blood us Fernando Schmid MD HEMATOLOGY ORDERABLES Final Res ult Performing Organization Address [facility] Co de Phone Number NON [facility] documented in this encounter Visit Diagnoses Diagnosis Anemia in stage 4 chronic kidney disease- Primary documented in this encounter Care Teams Blueprint Trimmer Relationship Specialty Start Date End Date Jhonatan Bellamy MD 10 [facility] [place] [address] PCP - General Family Practice 06/05/17 09/10/18 documented as of this encounter
--- OUTSIDE RECORDS SUMMARY | 2024-09-07 23:30 | XMS_ITS | Encounter Summary ---
Author Organization [facility] Address [address] [place] [address] Care Team Providers Care Traffic Control Specialist Name Role Phone Jhonatan Bellamy MD Primary Care Provider [phone] Encounter Details Date Type Department Care Team (Late st Contact Info) Description 02/26/2018 Orders Only [facility] Oncology and Hematology - [place] [address] [address] Tanna Costa, RN Social History [...] on filedocumented in this encounter Care Teams Traffic Control Specialist Relationship Specialty Start Date End Date Jhonatan Bellamy MD [address] [place] [address] PCP - General Family Practice 06/05/17 09/10/18 documented as of this encounter
--- OUTSIDE RECORDS SUMMARY | 2024-09-07 23:30 | XMS_ITS | Encounter Summary ---
Author Organization [facility] Address [address] [place] [address] Care Team Providers Care Member Of The Legislative Assembly Name Role Phone Jhonatan Bellamy MD Primary Care Provider [phone] Encounter Details Date Type Department Care Team (Late st Contact Info) Description 08/16/2018 Orders Only [facility] Oncology and Hematology - [place] [address] [phone] Tanna Costa RN Anemia in stage 4 [...] ORDERABLES Final Res ult NON [facility] documented in this encounter Visit Diagnoses Diagnosis Anemia in stage 4 chronic kidney disease documented in this encounter Care Teams Member Of The Legislative Assembly Relationship Specialty Start Date End Date Jhonatan Bellamy MD [address] [place] [address] PCP - General Family Practice 06/05/17 09/10/18 documented as of this encounter
--- OUTSIDE RECORDS SUMMARY | 2024-09-07 23:30 | XMS_ITS | Encounter Summary ---
Author Organization [facility] Address [address] [place] [address] Care Team Providers Care Entertainer Or Variety Artist Name Role Phone Jhonatan Bellamy MD Primary Care Provider [phone] Encounter Details Date Type Department Care Team (Late st Contact Info) Description 06/15/2018 Orders Only [facility] Oncology and Hematology - [place] [address] [phone] Tanna Costa RN Anemia of chronic renal [...] (severe) documented in this encounter Care Teams Entertainer Or Variety Artist Relationship Specialty Start Date End Date Jhonatan Bellamy MD [address] [place] [address] PCP - General Family Practice 06/05/17 09/10/18 documented as of this encounter
--- OUTSIDE RECORDS SUMMARY | 2024-09-07 23:30 | XMS_ITS | Encounter Summary ---
Author Organization [facility] Address [address] [place] [address] Care Team Providers Care Automatic Wheel Line Operator Name Role Phone Jhonatan Bellamy MD Primary Care Provider [phone] Encounter Details Date Type Department Care Team (Late st Contact Info) Description 07/31/2018 Orders Only [facility] Oncology and Hematology - [place] [address] [phone] Tanna Costa RN Anemia in stage 4 [...] Final Res ult NON [facility] documented in this encounter Visit Diagnoses Diagnosis Anemia in stage 4 chronic kidney disease documented in this encounter Care Teams Automatic Wheel Line Operator Relationship Specialty Start Date End Date Jhonatan Bellamy MD [address] [place] [address] PCP - General Family Practice 06/05/17 09/10/18 documented as of this encounter
--- OUTSIDE RECORDS SUMMARY | 2024-09-07 23:30 | XMS_ITS | Encounter Summary ---
Author Organization [facility] Address [address] [place] [address] Care Team Providers Care Epic Trainer Name Role Phone Jhonatan Bellamy MD Primary Care Provider [phone] Reason for Visit * Reason Comments Medication Refill Encounter Details Date Type Department Care Team (Late st Contact Info) Description 07/16/2018 Refill [facility] Oncology and Hematology - [place] [address] [facility] 200 [place] [address] Fernando Schmid MD 2[address] [facility] [address] [place] [address] Social History Tobacco Use Types [...] on filedocumented in this encounter Care Teams Epic Trainer Relationship Specialty Start Date End Date Jhonatan Bellamy MD [address] [place] [address] PCP - General Family Practice 06/05/17 09/10/18 documented as of this encounter
--- OUTSIDE RECORDS SUMMARY | 2024-09-07 23:30 | XMS_ITS | Encounter Summary ---
Author Organization [facility] Address [address] [place] [address] Care Team Providers Care Email Marketing Coordinator Name Role Phone Jhonatan Bellamy MD Primary Care Provider [phone] Encounter Details Date Type Department Care Team (Late st Contact Info) Description 08/24/2018 Orders Only [facility] Oncology and Hematology - [place] [address] [phone] Tanna Costa RN Anemia in stage 4 [...] MD HEMATOLOGY ORDERABLES Final Res ult NON [facility] documented in this encounter Visit Diagnoses Diagnosis Anemia in stage 4 chronic kidney disease documented in this encounter Care Teams Email Marketing Coordinator Relationship Specialty Start Date End Date Jhonatan Bellamy MD [address] [place] [address] PCP - General Family Practice 06/05/17 09/10/18 documented as of this encounter
--- OUTSIDE RECORDS SUMMARY | 2024-09-07 23:30 | XMS_ITS | Encounter Summary ---
Author Organization [facility] Address [address] [place] [address] Care Team Providers Care Speed Belt Sander Name Role Phone Jhonatan Bellamy MD Primary Care Provider [phone] Reason for Visit * Reason Comments Medication Refill Encounter Details Date Type Department Care Team (Late st Contact Info) Description 05/23/2018 Refill [facility] Oncology and Hematology - [place] 2[address] [facility] 200 [place] [address] Fernando Schmid MD 2[address] [facility] [address] [place] [address] Social History Tobacco Use Types [...] on filedocumented in this encounter Care Teams Speed Belt Sander Relationship Specialty Start Date End Date Jhonatan Bellamy MD [address] [place] [address] PCP - General Family Practice 06/05/17 09/10/18 documented as of this encounter
--- OUTSIDE RECORDS SUMMARY | 2024-09-07 23:30 | XMS_ITS | Encounter Summary ---
Author Organization [facility] Address [address] [place] [address] Care Team Providers Care Medical Information Officer Name Role Phone Jhonatan Bellamy MD Primary Care Provider Encounter Details Date Type Department Care Team (Late st Contact Info) Description 01/22/2018 Orders Only [facility] Oncology and Hematology - [place] [address] [address] Tanna Costa, RN Social History [...] filedocumented in this encounter Care Teams Medical Information Officer Relationship Specialty Start Date End Date Jhonatan Bellamy MD [address] [place] [address] PCP - General Family Practice 06/05/17 09/10/18 documented as of this encounter
--- OUTSIDE RECORDS SUMMARY | 2024-09-07 23:30 | XMS_ITS | Encounter Summary ---
Author Organization [facility] Address [address] [place] [address] Care Team Providers Care Director Of Software Development Name Role Phone Jhonatan Bellamy MD Primary Care Provider [phone] Encounter Details Date Type Department Care Team (Late st Contact Info) Description 01/22/2018 Orders Only [facility] Oncology and Hematology - [place] [address] [address] Tanna Costa, RN Social History [...] in this encounter Care Teams Director Of Software Development Relationship Specialty Start Date End Date Jhonatan Bellamy MD [address] [place] [address] PCP - General Family Practice 06/05/17 09/10/18 documented as of this encounter
--- OUTSIDE RECORDS SUMMARY | 2024-09-07 23:30 | XMS_ITS | Encounter Summary ---
Author Organization [facility] Address [address] [place] [address] Care Team Providers Care Fugitive Detective Name Role Phone Jhonatan Bellamy MD Primary Care Provider [phone] Encounter Details Date Type Department Care Team (Late st Contact Info) Description 03/14/2018 Orders Only [facility] Oncology and Hematology - [place] [address] [phone] Tanna Costa RN Anemia of chronic renal [...] Results * CBC WITH DIFFERENTIAL (03/16/2018) Blood us Fernando Schmid MD HEMATOLOGY ORDERABLES Final Res ult EXTERNAL LAB documented in this encounter Visit Diagnoses Diagnosis Anemia of chronic renal failure, stage 4 (severe) documented in this encounter Care Teams Fugitive Detective Relationship Specialty Start Date End Date Jhonatan Bellamy MD [address] [place] [phone] PCP - General Family Practice 06/05/17 09/10/18 documented as of this encounter
--- OUTSIDE RECORDS SUMMARY | 2024-09-07 23:31 | XMS_ITS | Encounter Summary ---
Author Organization [facility] Address [address] [place] [address] Care Team Providers Care Software Licensing Executive Name Role Phone Jhonatan Bellamy MD Primary Care Provider [phone] Encounter Details Date Type Department Care Team (Late st Contact Info) Description 07/03/[address] [facility] Oncology and Hematology - [place] [address] [phone] Tanna Costa, RN Anemia of chronic renal [...] Results * BASIC METABOLIC PANEL (07/11/2017) Blood us Fernando Schmid MD CHEMISTRY ORDERABLES Final Resu lt EXTERNAL LAB * (ABNORMAL) CBC WITH DIFFERENTIAL (07/10/2017) Blood us Fernando Schmid MD HEMATOLOGY ORDERABLES Final Res ult EXTERNAL LAB documented in this encounter Visit Diagnoses Diagnosis Anemia of chronic renal failure, stage 4 (severe) documented in this encounter Care Teams Software Licensing Executive Relationship Specialty Start Date End Date Jhonatan Bellamy MD [address] [place] [phone] PCP - General Family Practice 06/05/17 09/10/18 documented as of this encounter
--- OUTSIDE RECORDS SUMMARY | 2024-09-07 23:31 | XMS_ITS | Encounter Summary ---
Author Organization [facility] Address [address] [place] [address] Care Team Providers Care Hot Top Liner Name Role Phone Jhonatan Bellamy MD Primary Care Provider [phone] Reason for Visit * Reason Onset Date Comments Medication Review 07/03/2017 Encounter Details Date Type Department Care Team (Late st Contact Info) Description 07/03/2017 Telephone [facility] Oncology and Hematology - [place] [address] [facility] [address] [place] [address] Fernando Schmid MD [address] [facility] [address] [place] [address] Medication Review Social History Tobacco [...] scheduled ov next week. Tanna Costa RN IED EXERCISE PHYSIOLOGIST documented in this encounter Plan of Treatment Not on file documented as of this encounter Visit Diagnoses Not on filedocumented in this encounter Care Teams Hot Top Liner Relationship Specialty Start Date End Date Jhonatan Bellamy MD [address] [place] [phone] PCP - General Family Practice 06/05/17 09/10/18 documented as of this encounter
--- OUTSIDE RECORDS SUMMARY | 2024-09-07 23:31 | XMS_ITS | Encounter Summary ---
Author Organization [facility] Address [address] [place] [address] Care Team Providers Care Sap Payroll Consultant Name Role Phone Jhonatan Bellamy MD Primary Care Provider [phone] Encounter Details Date Type Department Care Team (Late st Contact Info) Description 08/09/2017 Orders Only [facility] Oncology and Hematology - [place] [address] [facility] [address] [place] [address] Fernando Schmid MD [address] [facility] [address] [place] [address] Anemia of chronic renal failure, [...] (severe) documented in this encounter Care Teams Sap Payroll Consultant Relationship Specialty Start Date End Date Jhonatan Bellamy MD [address] [place] [address] PCP - General Family Practice 06/05/17 09/10/18 documented as of this encounter
--- OUTSIDE RECORDS SUMMARY | 2024-09-07 23:31 | XMS_ITS | Clinical Summary ---
Author Organization [facility] Address [address] [place] [address] Care Team Providers Care Supervisor Title Name Role Phone Aditya Castro MD Primary Care Provider [phone] Alondra Lambert RN Unavailable [phone] Shnanon Brock MD, Hamlet P. Unavailable [phone] Leandro Reyes MD Unavailable [phone] Allergies Active Allergy Reactions Criticality Noted Date [...] PUMP: Continue Omnipod 5 insulin pump with [employer] G6 CGM at home settings: TIME BASAL [...] 1 tablet (25 mcg total) by mouth residential building inspector before breakfast 30 tablet 1 11/04/19 24 [...] mg SL tablet 12/28/19 18 Active peg 161-jljwobaptyiq-il ycerin (ARTIFICAL TEARS) 1-0.2-0.2 % ophthalmic solution 1 drop 4 (four) times a day 07/07/20 22 Active potassium chloride ER 20 mEq CR tablet Active Active Problems Problem Noted Date Diagnosed Date End stage renal disease ([facility]) 07/29/2024 Nonrheumatic aortic valve stenosis 11/22/2023 Status post aortic valve replacement 11/22/2023 Status post coronary artery bypass grafting 10/2023 CAD in [place] artery 10/13/2023 Anemia 06/22/2022 Assessment & Plan (06/29/2022 10:12 AM BREWERY PUMPER): Stable, likely 2/2 anemia from ESRD, no [...] trend Hb. ESRD (end stage renal disease) ([facility]) 022 Assessment & Plan (06/29/2022 10:12 AM BREWERY PUMPER): - Renal consulted, s/p CRRT in the ICU now back on PD. Tolerated well and nephrology following - Trialysis catheter removed - Continue vitamins for renal bone mineral disease. Assessment & Plan (06/28/2022 3:29 PM BREWERY PUMPER): - Renal consulted, s/p CRRT in the [...] 06/22/2022 Assessment & Plan (06/29/2022 10:12 AM BREWERY PUMPER): C/b cardiogenic shock requiring impella in the setting of cath and AHRF 2/2 pulmonary edema, now resolved. TTE demonstrating recovered EF 65% with grade I diastolic dysfunction. - metop as above - continue low dose losartan 12.5mg daily, ok per nephro. Tolerating well - volume management per PD Assessment & Plan (06/28/2022 3:29 PM BREWERY PUMPER): C/b cardiogenic shock requiring impella in the [...] 06/22/2022 Assessment & Plan (06/29/2022 10:12 AM BREWERY PUMPER): Converted to NSR overnight on 06/24. CHADsVASc of 4 not on anticoagulation prior to admission. - cardiology consulted - recommended ongoing rate control - holding off on a/c with high risk for bleeding while on DAPT - reduced metop to 25mg BID in the setting of hypotension, HR 70s NSR Assessment & Plan (06/28/2022 3:30 PM BREWERY PUMPER): Converted to NSR overnight on 06/24. CHADsVASc [...] AC. NSTEMI (non-ST elevated myocardial infarction) ( [facility]) 06/22/2022 Assessment & Plan (06/29/2022 10:11 AM BREWERY PUMPER): With recurrent chest pain post-cath. He has [...] today Assessment & Plan (06/28/2022 3:30 PM BREWERY PUMPER): With recurrent chest pain post-cath. He has [...] 06/22/2022 Assessment & Plan (06/29/2022 10:11 AM BREWERY PUMPER): Secondary to NSTEMI, s/p Impella since removed on 06/10. Resolved. Assessment & Plan (06/23/2022 4:55 PM CDT): Secondary to NSTEMI, s/p Impella since removed on 06/10. Resolved. Assessment & Plan (06/22/2022 8:22 PM CDT): -Secondary to NSTEMI, s/p Impella since removed on 06/10. Acute hypoxemic respiratory failure 06/09/2022 Assessment & Plan (06/29/2022 10:12 AM BREWERY PUMPER): Secondary to ACS and flash pulmonary edema, [...] (06/10/2022): Added automatically from request for surgery [id number] Abnormal cardiovascular stress test 12/29/2020 Overview (12/29/2020): Added automatically from request for surgery [id number] 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n ative artery of [place] heart with stable angina pectoris ([facility]) 05/23/2017 History of coronary artery stent placement 05/23 Macular ischemia 03/17/2017 Combined forms of age-related cataract 7 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 03/17/2017 Type 2 diabetes mellitus treated with insulin (C [place]/HCC) 03/25/2015 Overview (11/25/2016): Insulin treated Type II diabetes mellitus Chronic kidney disease, stage III (moderate) 12/2014 Overview (11/25/2016): Chronic kidney disease, stage 3 Benign essential hypertension 03/25/2015 Overview (11/25/2016): Benign essential HTN Hyperlipidemia 03/25/2015 Overview (11/25/2016): Hyperlipidemia Pain of finger 11/24/2014 Hypersomnia 11/22/2013 Chronic kidney disease 11/22/2013 Hypertension 01/18/2013 Type 1 diabetes mellitus 01/18/2013 Assessment & Plan (06/29/2022 10:12 AM BREWERY PUMPER): A1c well controlled on admission. He uses [...] session Assessment & Plan (06/28/2022 3:28 PM BREWERY PUMPER): A1c well controlled on admission. He uses [...] Type Department Care Team Description 08/06/2024 Documentation [facility] Transplant Kidney [address] Mailstop [phone] [place] [address] Alondra Lambert RN 07/30/2024 Telephone [facility] [address] Mailstop [phone] [place] [address] Alondra Lambert RN 07/29/2024 1:15 PM BREWERY PUMPER Lab [facility] [address] [place] [address] End stage renal disease (CMS/HCC) (HCC); ESRD (end stage renal disease) (CMS/HCC) (HCC) 07/29/2024 1:00 PM BREWERY PUMPER Office Visit [facility] Nephrology [address] [facility] 5th [place] [address] [place] [address] Radha Bartholomew MD Pre-transplant evaluation for kidney transplant (Primary Dx); End stage renal disease (CMS/HCC) ([facility]); Status post coronary artery bypass grafting; Status post aortic valve replacement; Type 1 diabetes mellitus with chronic kidney disease on chronic dialysis ([facility]) ([facility]); CAD in [place] artery; Paroxysmal atrial fibrillation ([facility]) ([facility]) 07/29/2024 11:02 AM BREWERY PUMPER - 07/29/2024 11:59 PM BREWERY PUMPER Hospital Encounter [facility] [address] [facility] [address] [place] [address] Discharge Disposition: Discharge to home or self care 07/29/2024 10:58 AM BREWERY PUMPER - 07/29/2024 11:59 PM BREWERY PUMPER Hospital Encounter [facility] [address] [place] [address] End stage renal disease ([facility]CC) ([facility]) Discharge Disposition: Discharge to home or self care 07/29/2024 10:55 AM BREWERY PUMPER - 07/29/2024 11:59 PM BREWERY PUMPER Hospital Encounter [facility] [address] [place] [address] End stage renal disease ([facility]CC) ([facility]) Discharge Disposition: Discharge to home or self care 07/29/2024 10:53 AM BREWERY PUMPER - 07/29/2024 11:59 PM BREWERY PUMPER Hospital Encounter [facility] [address] [place] [address] End stage renal disease ([facility]/HCC) (HCC) Discharge Disposition: Discharge to home or self care 07/29/2024 9:00 AM BREWERY PUMPER Social Work [facility] [facility], [address]th Floor, [place] [address] 07/29/[address] [facility] [address] [facility] [address] Mailstop [phone] [place] [address] Alondra Lambert, RN 07/26/[address] [facility] [address] [facility] [phone] [place] [address] Elsie Cornejo 07/26/2024 Orders Only [facility] Transplant [facility] [address] [facility] [address] Mail[address] [phone] [place] [address] Alondra Lambert, LUAN ESRD (end stage renal disease) ([facility]) ([facility]) (Primary Dx) 07/26/[address] [facility] [address] [facility] [address] Mail[address] [phone] [place] [address] Alondra Lambert RN 07/22/[address] [facility] [address] [facility] [phone] [place] [address] Chris Richard 06/28/2024 Telephone [facility] Transplant Kidney [address] [facility] [phone] [place] [address] Chris Richard 06/24/2024 Telephone [facility] Transplant Kidney [address] [facility] [phone] [place] [address] Chris Richard 06/11/2024 Orders Only [facility]iology [address] [place] [address] Karen Barnes NP from Last [...] doctor or pharmacy Never 12/01/2023 [facility] Utilities Answer Date Recorded In the past 12 months has th e [employer], gas, oil, or water [employer] threatened to shut off services in your home? No 08/01/2024 Social Connection and Isolation Panel [NHANES] A nswer Date Recorded In a typical week, how many times do you talk on the phone with family, friends, or neighbors? Twice a week 08/01/2024 How often do you get together with friends or re latives? Once a week 08/01/2024 How often do you attend scientologist or judaism serv ices? Never 08/01/2024 Do you belong to any clubs o r organizations such as scientologist groups, unions, fraternal or athletic groups, or [...] in a halfway (including now)? No 10/16/2023 Housing Stability Vital Sign Answer Rubens e Recorded In the last 12 months, was t here a time when you were not able to pay the mortgage or rent on time? No 08/01/2024 In the past 12 months, how m any times have you moved where you were living? 1 08/01/2024 At any time in the past 12 m [facility], were you homeless or living in a halfway (including now)? No 08/01/2024 Personal Safety Answer Date Recorded Have you ever been in or are you currently in a harmful physical or emotional relationship or is someone making you feel afraid or unsafe? 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 Male 3:42 AM BREWERY PUMPER Gender Identity Not on file Sexual Orientation Not on file Obstetrics History Last Filed Vital Signs Vital Sign Reading Time Taken Comments Blood Pressure 122/75 07/29/2024 1:00 PM BREWERY PUMPER Pulse 116 07/29/2024 1:00 PM BREWERY PUMPER Temperature 36.8 ??C (98.2 ??F) 07/29/2024 1:00 PM CS T Respiratory Rate 16 12/01/2023 11:1 3 AM CDT Oxygen Saturation 96% 12/01/2023 11: 13 AM CDT Inhaled Oxygen Concentration - - Weight 121.2 kg (267 lb 1.6 oz) 07/29/2024 1:00 PM BREWERY PUMPER Height 177.8 cm (5' 10 ) 07/29/2024 1:00 PM BREWERY PUMPER Body Mass Index 38.32 07/29/2024 1:00 PM BREWERY PUMPER Plan of Treatment Health Maintenance Due Date [...] 03/23/2017, 03/26/2015 Medical Devices Implanted Type Area Bead Picker Device Identifier Shelf Expiration Date Model / Serial / Lot Kyle Vascular Device Clsr Perclose Prostyle Sut-Mediatd Closure-Repair Sys 19896-79 - [id number] Implanted:Qty: 1 on 06/10/2022 by Champ Osborne MD PhD at [facility] Other - see comments Right: Femoral [employer] Vascular 01/19/2024 [id number] / / [id number] [employer] [employer] Mary Synergy Xd Monorail 2.5mm 48mm 144cm Delivery System 1 Access [id number] - [id number] Implanted:Qty: 1 on 06/07/2022 by Champ Osborne MD PhD at [facility] Stent [place] [employer] Mary 10/27/2023 [id number] / / [id number] [employer] [employer] Mary Synergy Xd Monorail 3mm 24mm 144cm Delivery System 1 Access Port [id number] - [id number] Implanted:Qty: 1 on 06/07/2022 by Champ Osborne MD PhD at [facility] Stent [place] [employer] Mary 07/28/2023 [id number] / / [id number] [place] [employer] Mary Synergy Xd Monorail 2.5mm 12mm 144cm Delivery System 1 Access [id number] - [id number] - [id number] Implanted:Qty: 1 on 06/07/2022 by Champ Osborne MD PhD at [facility] Stent [employer] Mary 05/03/2023 [id number] / [id number] / [id number] Dai Mary [id number] Device Closure Angio-Seal Vip Bondek-Plus Polyglyd L70 Cm Od6 Fr Odsec.035 In Vascular - [id number] Implanted:Qty: 1 on 01/21/2021 by Hamlet Ortega Jr., MD at [facility] Left: Groin [employer] Mary [id number] / / Kyle Vascular Device Clsr Perclose Prostyle Sut-Mediatd Closure-Repair Sys 12479-81 - [id number] Implanted:Qty: 1 on 06/07/2022 by Champ Osborne MD PhD at [facility] Kyle [employer] 01/19/202430492-42 / [id number] Kyle Vascular Device Clsr Perclose Prostyle Sut-Mediatd Closure-Repair Sys 95876-71 - [id number] Implanted:Qty: 1 on 06/07/2022 by Champ Osborne MD PhD at [facility] Kyle Vascular 11/19/202393220-71 / [id number] Bard Access Systems Power-Trialysis 13fr 30cm 3 Lumen Kink Resistance Symmetric Tip [id number] - [id number] Implanted:Qty: 1 on 06/07/2022 by Champ Osborne MD PhD at [facility] Right: Jugular Ramirez Crane 07/20/2024 [id number] / / [id number] [employer] Impella Cp Percutaneous Left Ventricular Assist Device 2400-4229 - [id number] Implanted:Qty: 1 on 06/07/2022 by Champ Osborne MD PhD at [facility] Left: Ventricle [employer] [id number] / / Bard Access Systems Power-Trialysis 13fr 20cm 3 Lumen Short Term Dialysis Straight [id number] - [id number] Implanted:Qty: 1 on 06/18/2022 at [facility] Ramirez Chapito 07/20/2024 [id number] / / [id number] Rl Bi[employer] Inc Screw Bone Slf Drl Full Thread Locking 3.5x14mm Ti 100.035.14 - [id number] Implanted:Qty: 6 on 10/17/2023 by Lorne Mcnulty MD at [facility] N/A: Sternum [employer] Inc 100.035.1 4 / / Rl [employer] Inc Plate Bone Low Profile 6 Hole H Shape Sternum Ti 115.102.06 - [id number] Implanted:Qty: 2 on 10/17/2023 by Lorne Mcnulty MD at [facility] N/A: Sternum [employer] 115.102.0 6 / / Rl [employer] Plate Bone Low Profile 6 Hole O Shape Sternum Ti 115.104.06 - [id number] Implanted:Qty: 1 on 10/17/2023 by Lorne Mcnulty MD at [facility] N/A: Sternum [employer] 115.104.0 6 / / On-X Intrnl Valve Coronary Aortic Mechanical On X 25mm Onxane-25 - [id number] - [id number] Implanted:Qty: 1 on 10/17/2023 by Lorne Mcnulty MD at [facility] N/A: Heart On-X Intrnl 01/22/2028 ONXANE-25 / [id number] / Rl [employer] Inc Screw Bone Slf Drl Full Thread Locking 3.5x18mm Ti 100.035.18 - [id number] Implanted:Qty: 12 on 10/17/2023 by Lorne Mcnulty MD at [facility] N/A: Sternum R[employer] 100.035.1 8 / / Explanted Type Area Bead Picker Device Identifier Shelf Expiration Date Model / Serial / Lot Bard Peripheral Vascular Bard .25x.25in Mcgee Thk1.65mm Square P[employer]get Cardiovascular Ptfe [id number] - [id number] Explanted:Qty: 1 on 10/17/2023 by Lorne Mcnulty MD at [facility] N/A: Heart Bard Peripheral Vascular 05/18/2026 [id number] / / Procedures Procedure Name Priority Date/Time Associated Diagnosis Comments HLA SOLID ORGAN TYPING REPORT 08/02/2024 9:04 AM BREWERY PUMPER SIX MINUTE WALK Routine 07/29/2024 2:46 PM BREWERY PUMPER End stage renal disease (CMS/HCC) (HCC) CT ABDOMEN PELVIS WO CONTRAST Schedule Routine, Read Routine (OP Routine) 07/29/2024 12:43 PM BREWERY PUMPER End stage renal disease (CMS/HCC) (HCC) XR ORTHOPANTOGRAM/PANOR EX Schedule Routine, Read Routine (OP Routine) 07/29/2024 11:44 AM BREWERY PUMPER End stage renal disease (CMS/HCC) (HCC) TYPE AND SCREEN Routine 07/29/2024 11:23 AM BREWERY PUMPER End stage renal disease (CMS/HCC) (HCC) ECG 12-LEAD Routine 07/29/2024 11:14 AM BREWERY PUMPER End stage renal disease (CMS/HCC) (HCC) ABO/RH Routine 07/29/2024 11:13 AM BREWERY PUMPER EGFR Routine 07/29/2024 11:01 AM BREWERY PUMPER End stage renal disease (CMS/HCC) (HCC) DIFFERENTIAL AUTO Routine 07/29/2024 11: 01 AM BREWERY PUMPER End stage renal disease (CMS/HCC) (HCC) CBC WITH AUTO DIFFERENTIAL Routine 07/29/2024 11:01 AM BREWERY PUMPER End stage renal disease (CMS/HCC) (HCC) COMPREHENSIVE METABOLIC PANEL Routine 07/29/2024 11:01 AM BREWERY PUMPER End stage renal disease (CMS/HCC) (HCC) CREATININE, URINE, RANDOM Routine 07/29/2024 11:01 AM BREWERY PUMPER End stage renal disease (CMS/HCC) (HCC) FERRITIN Routine 07/29/2024 11:01 AM BREWERY PUMPER End stage renal disease (CMS/HCC) (HCC) GAMMA GT Routine 07/29/2024 11:01 AM BREWERY PUMPER End stage renal disease (CMS/HCC) (HCC) HEMOGLOBIN A1C Routine 07/29/2024 11:01 AM BREWERY PUMPER End stage renal disease (CMS/HCC) (HCC) IRON PROFILE W/ IBC Routine 07/29/2024 1 1:01 AM BREWERY PUMPER End stage renal disease (CMS/HCC) (HCC) LIPID PANEL Routine 07/29/2024 11:01 AM BREWERY PUMPER End stage renal disease (CMS/HCC) (HCC) PTH Routine 07/29/2024 11:01 AM BREWERY PUMPER End stage renal disease (CMS/HCC) (HCC) APTT Routine 07/29/2024 11:01 AM BREWERY PUMPER End stage renal disease (CMS/HCC) (HCC) PHOSPHORUS Routine 07/29/2024 11:01 AM BREWERY PUMPER End stage renal disease (CMS/HCC) (HCC) PROTEIN, URINE, RANDOM Routine 07/29/2024 11:01 AM BREWERY PUMPER End stage renal disease (CMS/HCC) (HCC) PROTIME-INR Routine 07/29/2024 11:01 AM BREWERY PUMPER End stage renal disease (CMS/HCC) (HCC) URIC ACID Routine 07/29/2024 11:01 AM BREWERY PUMPER End stage renal disease (CMS/HCC) (HCC) PSA SCREEN Routine 07/29/2024 11:01 AM BREWERY PUMPER End stage renal disease (CMS/HCC) (HCC) LR HLA TYPING (CLASS I AND CLASS II) Routine 07/29/2024 11:01 AM BREWERY PUMPER End stage renal disease (CMS/HCC) (HCC) HLA CLASS I DNA (ABC) RECIPIENT Routine 07/29/2024 11:01 AM BREWERY PUMPER End stage renal disease (CMS/HCC) (HCC) HLA CLASS II DNA (DR, DQ, DP) RECIPIENT Routine 07/29/2024 11:01 AM BREWERY PUMPER End stage renal disease (CMS/HCC) (HCC) HLA ANTIBODY SCREEN - SAB (CLASS I AND CLASS II) Routine 07/29/2024 11:01 AM BREWERY PUMPER End stage renal disease (CMS/HCC) (HCC) HLA ANTIBODY SCREEN BY SINGLE ANTIGEN Routine 07/29/2024 11:01 AM BREWERY PUMPER End stage renal disease (CMS/HCC) (HCC) CMV, IGG Routine 07/29/2024 11:01 AM BREWERY PUMPER End stage renal disease (CMS/HCC) (HCC) MADIHA-MORRIS VIRUS VCA ANTIBODY PANEL Routine 07/29/2024 11:01 AM BREWERY PUMPER End stage renal disease (CMS/HCC) (HCC) HIV 1/2 ANTIBODY PLUS P24 ANTIGEN Routine 07/29/2024 11:01 AM BREWERY PUMPER End stage renal disease (CMS/HCC) (HCC) HSV 1 ANTIBODY, IGG Routine 07/29/2024 1 1:01 AM BREWERY PUMPER End stage renal disease (CMS/HCC) (HCC) HSV 2 ANTIBODY, IGG Routine 07/29/2024 1 1:01 AM BREWERY PUMPER End stage renal disease (CMS/HCC) (HCC) HEPATITIS B CORE ANTIBODY, TOTAL Routine 07/29/2024 11:01 AM BREWERY PUMPER End stage renal disease (CMS/HCC) (HCC) HEPATITIS B SURFACE ANTIBODY (IMMUNE STATUS) Routine 07/29/2024 11:01 AM BREWERY PUMPER End stage renal disease (CMS/HCC) (HCC) HEPATITIS B SURFACE ANTIGEN Routine 07/29/2024 11:01 AM BREWERY PUMPER End stage renal disease (CMS/HCC) (HCC) HEPATITIS C ANTIBODY Routine 07/29/2024 11:01 AM BREWERY PUMPER End stage renal disease (CMS/HCC) (HCC) RPR Routine 07/29/2024 11:01 AM BREWERY PUMPER End stage renal disease (CMS/HCC) (HCC) VARICELLA ZOSTER ANTIBODY, IGG Routine 07/29/2024 11:01 AM BREWERY PUMPER End stage renal disease (CMS/HCC) (HCC) URINALYSIS, MICROSCOPIC ONLY Routine 07/29/2024 10:53 AM BREWERY PUMPER End stage renal disease (CMS/HCC) (HCC) OXALATE Routine 07/29/2024 10:53 AM BREWERY PUMPER ESRD (end stage renal disease) (CMS/HCC) (HCC) URINALYSIS AND REFLEX TO MICROSCOPIC Routine 07/29/2024 10:53 AM BREWERY PUMPER End stage renal disease (CMS/HCC) (HCC) CARDIOLOGY DOCUMENT SCAN Routine 06/07/2024 11:10 AM CDT TSH Routine 10/27/2023 2:30 AM BREWERY PUMPER from Last 3 Months or Most Recently Relevant to Health Maintenance Results * HLA Solid Organ Typing Report (08/02/2024 9:04 AM BREWERY PUMPER) Jossie King MD LAB GENETIC TESTIN G Final Result * Six Minute Walk - (07/29/2024 2:46 PM BREWERY PUMPER) Anatomical Region Laterality Modality PFT Narrative 07/29/2024 3:52 PM BREWERY PUMPER Table formatting from the original result was not included. Davey Pickard V., PRODUCT COMMUNICATIONS MANAGER on 07/29/2024 ??2:45 PM Table formatting from the original note was not included. 6 MINUTE WALK RESULTS Name: Juvenal Daigle Jr : 1970 DOS: 07/29/2024 Diagnosis: ESRD/KTE PRODUCT COMMUNICATIONS MANAGER performed walk: Carmenza Pickard Rest: 1 min [...] Abdomen Pelvis WO Contrast (07/29/2024 12:43 PM BREWERY PUMPER) Anatomical Region Laterality Modality Body N/A Computed Tomogra phy 07/29/2024 1:04 PM BREWERY PUMPER Impressions 07/29/2024 1:04 PM BREWERY PUMPER 1. ??Moderate discontinuous atherosclerotic calcifications involve the [...] Teresa Rivera M.D. Narrative 07/29/2024 1:04 PM BREWERY PUMPER EXAMINATION: ??Computed tomography of the abdomen and [...] Electronically signed by: Maria Teresa Rivera M.D. 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 Electronically signed by: Julio Pinedo M.D. Narrative 07/29/2024 12:59 PM BREWERY PUMPER EXAMINATION: XR ORTHOPANTOGRAM/PANOREX HISTORY: Kidney Transplant Evaluation [...] * Type and screen (07/29/2024 11:23 AM BREWERY PUMPER) Maribel, indirect Negative ABO Rh A Positive [facility] Blood 07/29/2024 11:2 3 AM BREWERY PUMPER 07/29/2024 11:43 AM BREWERY PUMPER Narrative ALESSANDRA [facility] - 07/29/2024 12:45 PM BREWERY PUMPER Please draw the ABO and the Type [...] drawn during the evaluation visit at [facility] 3C Lab. Has the patient had Daratumumab or Isatuximab in the past 6 months?->Unknown Jossie King MD LAB BLOOD BANK ERNESTO T ORDERABLES Final Result [facility] [place] [address] * ECG 12 lead (07/29/2024 11:14 AM BREWERY PUMPER) Ventricular Rate EKG/Min 117 BPM [facility] Atrial Rate 117 BPM [facility] ND-Interval (MSEC) 144 ms [facility] QRS-Interval (MSEC) 126 ms [facility] QT-Interval (MSEC) 366 ms [facility] QTc 510 ms [facility] R [place] -40 degrees [facility] T [place] 147 degrees [facility] Diagnosis Poor data quality, interpretation may [...] M.D ([id number]) on 07/29/2024 3:38:41 PM [facility] 07/29/2024 11:1 4 AM BREWERY PUMPER 07/29/2024 3:38 PM BREWERY PUMPER Jossie King MD ECG ORDERABLES Fi nal Result Performing Organization Address [facility] Co de Phone Number [facility] * ABO/Rh (07/29/2024 11:13 AM BREWERY PUMPER) ABO Rh A Positive Blood 07/29/2024 11:1 3 AM BREWERY PUMPER 07/29/2024 2:45 PM BREWERY PUMPER Jossie King MD LAB BLOOD BANK ERNESTO T ORDERABLES Final Result [facility] Department [place] [address] * LR HLA Typing (Class I and Class II) (07/29/2024 11:01 AM BREWERY PUMPER) r-SSO HISTOTRAC A [place] A*03 HISTOTRAC [...] 07/30/24 HISTOTRAC Blood 07/29/2024 11:0 1 AM BREWERY PUMPER 08/02/2024 9:03 AM BREWERY PUMPER Narrative [facility] - 08/02/2024 9:03 AM BREWERY PUMPER DNA was extracted from whole blood or buccal cell specimens, and relevant genomic regions were amplified by polymerase chain reactions (PCR). HLA typing was performed on PCR amplicons using reverse sequence-specific oligonucleotide (r-SSO) and/or sequence-specific primers (SSP) based techniques. r-SSO and SSP are FDA approved as IVD tests and validated by the [facility]. Testing performed at the [facility], [address] [place] [address], 5th floor, [place], [address]. [facility] # [id number]. Dorothy Meade, Ph.D., Colliery Clerk, HLA Laboratory Rell Samuels M.D., Ph.D., Director Of Education, HLA Laboratory Licha Nieto, Ph.D., CLIA Director Of Education, [facility] Current methodology comment last revised on 04/25/17. Jossie King MD LAB BLOOD ORDERABL ES Final Result [facility] * Collection Task for HLA Typing 1 (07/29/2024 11:01 AM BREWERY PUMPER) HLA Class I DNA (ABC) Recipient Received Blood 07/29/2024 11:0 1 AM BREWERY PUMPER 07/29/2024 11:56 AM BREWERY PUMPER Jossie King MD LAB BLOOD ORDERABL ES Final Result Performing Organization Address City/[facility] Co de Phone Number ALESSANDRA [facility] [place] [address] * Collection Task for HLA Antibody Screen (07/29/2024 11:01 AM BREWERY PUMPER) Pathologist [facility] HLA Antibody Screen By Single Antigen Received Blood 07/29/2024 11:0 1 AM BREWERY PUMPER 07/29/2024 11:56 AM BREWERY PUMPER Jossie King MD LAB BLOOD ORDERABL ES Final Result Performing Organization Address [facility] de Phone Number [facility] [place] [address] * Collection Task for HLA Typing 2, Patient (07/29/2024 11:01 AM BREWERY PUMPER) Pathologist [facility] HLA Class II DNA (DR, DQ, DP) Recipient Received Blood 07/29/2024 11:0 1 AM BREWERY PUMPER 07/29/2024 11:56 AM BREWERY PUMPER Jossie King MD LAB BLOOD ORDERABL ES Final Result Performing Organization Address City/[facility] Co de Phone Number ALESSANDRA [facility] [place] [address] * (ABNORMAL) eGFR (07/29/2024 11:01 AM BREWERY PUMPER) Pathologist [facility] eGFR 7(L) >=60 mL/min/1. 73 m2 Comment: [...] reviewed 2021. Blood 07/29/2024 11:0 1 AM BREWERY PUMPER 07/29/2024 11:33 AM BREWERY PUMPER us Jossie King MD LAB BLOOD ORDERABL ES Final Result Performing Organization Address City/State/[facility] Co de Phone Number [facility] [place] [address] * Differential, auto (07/29/2024 11:01 AM BREWERY PUMPER) Neutrophil abs 3.1 1.5 - 6.5 K/cumm Imm gran abs 0.0 0.0 - 0.1 K/cumm [facility] Lymphocyte abs 1.1 0.8 - 3.3 K/cumm [facility] Monocyte abs 0.7 0.2 - 0.8 K/cumm [facility] Eosinophil abs 0.2 0.0 - 0.5 K/cumm [facility] Basophil abs 0.0 0.0 - 0.1 K/cumm [facility] Neutrophil pct 60.3 % [facility] Comment: Interpretive Data Percent cell count reference ranges are not reported, since discordance with absolute values may lead to misinterpretation of CBC data. Current Interpretive Data was last revised on 2017. Imm gran pct 0.6 % [facility] Comment: Interpretive Data Percent cell count reference ranges are not reported, since discordance with absolute values may lead to misinterpretation of CBC data. Current Interpretive Data was last revised on 2017. Lymphocyte pct 21.4 % [facility] Comment: Interpretive Data Percent cell count reference ranges are not reported, since discordance with absolute values may lead to misinterpretation of CBC data. Current Interpretive Data was last revised on 2017. Monocyte pct 13.7 % [facility] Comment: Interpretive Data Percent cell count reference ranges are not reported, since discordance with absolute values may lead to misinterpretation of CBC data. Current Interpretive Data was last revised on 2017. Eosinophil pct 3.2 % [facility] Comment: Interpretive Data Percent cell count reference ranges are not reported, since discordance with absolute values may lead to misinterpretation of CBC data. Current Interpretive Data was last revised on 2017. Basophil pct 0.8 % [facility] Comment: Interpretive Data Percent cell count reference ranges are not reported, since discordance with absolute values may lead to misinterpretation of CBC data. Current Interpretive Data was last revised on 2017. Blood 07/29/2024 11:0 1 AM BREWERY PUMPER 07/29/2024 11:34 AM BREWERY PUMPER us Jossie King MD LAB BLOOD ORDERABL ES Final Result [facility] Department [place] [address] * PSA screen (07/29/2024 11:01 AM BREWERY PUMPER) PSA-Total 0.55 <=3.90 ng/mL Comment: Interpretive Data ?AGE ? SEX ?REFERENCE INTERVAL 0 minutes-150 years ?Female ?None 0 minutes-49 years ? Male ?None ? 50-59 years ? Male ?0-3.90 ? 60-69 years ? Male ?0-5.40 ? 70-79 years ? Male ?0-6.20 ? 80-150 years ?Male ?0-6.20 The [employer] PSA Total assay procedure was used. Results from different manufacturers or methods may not be comparable. Serial testing should be performed using the same method. Current interpretive data last revised 21. Blood 07/29/2024 11:0 1 AM BREWERY PUMPER 07/29/2024 11:33 AM BREWERY PUMPER Narrative [facility] - 07/29/2024 12:39 PM BREWERY PUMPER This lab is being obtained as part of a Kidney transplant evaluation, is time sensitive, and should only be drawn during the evaluation visit at [facility] Lab. us Jossie King MD LAB BLOOD ORDERABL ES Final Result [facility] Department [place] [address] * (ABNORMAL) Iron profile w/ IBC (07/29/2024 11:01 AM BREWERY PUMPER) Iron 62 50 - 150 mcg/dL TIBC 208(L) 250 - 400 mcg/dL [facility] Transferrin saturation 30 20 - 50 % [facility] Blood 07/29/2024 11:0 1 AM BREWERY PUMPER 07/29/2024 11:33 AM BREWERY PUMPER Narrative [facility] - 07/29/2024 12:10 PM BREWERY PUMPER This lab is being obtained as part of a Kidney transplant evaluation, is time sensitive, and should only be drawn during the evaluation visit at [address] Jossie King MD LAB BLOOD ORDERABL ES Final Result Performing Organization Address [facility] de Phone Number [facility] [place] [address] * HIV 1/2 Antibody plus p24 Antigen Blood (07/29/2024 11:01 AM BREWERY PUMPER) HIV 1/2 ab + p24 ag Nonreactive Nonreactive Comment:Nonreactive for HIV- 1 antigen and HIV-1/HIV-2 antibodies. No laboratory evidence of HIV infection. If acute HIV infection is suspected, consider testing for HIV-1 RNA. Current interpretive data was last revised on 22. Blood 07/29/2024 11:0 1 AM BREWERY PUMPER 07/29/2024 11:32 AM BREWERY PUMPER Narrative [facility] - 07/29/2024 12:13 PM BREWERY PUMPER This lab is being obtained as part of a Kidney transplant evaluation, is time sensitive, and should only be drawn during the evaluation visit at [address] Jossie King MD LAB MICROBIOLOGY - GENERAL ORDERABLES Final Result Performing Organization Address [facility] de Phone Number [facility] [place] [address] * (ABNORMAL) CMV, IgG Blood (07/29/2024 11:01 AM BREWERY PUMPER) Pathologist [facility] CMV IgG Positive( A) Negative Comment: [...] CMV infection. Blood 07/29/2024 11:0 1 AM BREWERY PUMPER 07/29/2024 11:33 AM BREWERY PUMPER Narrative [facility]DRA [facility] - 07/29/2024 1:44 PM BREWERY PUMPER This lab is being obtained as part of a Kidney transplant evaluation, is time sensitive, and should only be drawn during the evaluation visit at [facility] Lab. us Jossie King MD LAB MICROBIOLOGY - GENERAL ORDERABLES Final Result [facility] [place] [address] * HLA Antibody Screen - SAB (Class I and Class II) (07/29/2024 11:01 AM BREWERY PUMPER) Class I Treatment EDTA [facility] Class I [...] DR52 [facility] Blood 07/29/2024 11:0 1 AM BREWERY PUMPER 08/02/2024 9:46 AM BREWERY PUMPER Narrative [facility] - 08/02/2024 9:46 AM BREWERY PUMPER Single-antigen HLA antibody screen is performed on serum samples using a method developed and validated by the [facility] based on an FDA-approved IVD kit (LABScreen Single-Antigen, [employer], [place], [place]). All patient serum samples are pretreated with EDTA before the screen to prevent complement interference. Additional serum treatments, such as adsorption and DTT treatment, may be performed as indicated. ??Interpretive comments: Low risk: MFI [id number]. Moderate risk: MFI [id number]. Increased risk: MFI >/= 5000. The presence [...] antigens to avoid. Testing performed at the [facility], [address] [place] [address], 5th floor, [place], [address]. CLIA # [id number]. Dorothy Meade, Ph.D., Colliery Clerk, HLA Laboratory Rell Samuels M.D., Ph.D., Director Of Education, HLA Laboratory Licha Nieto, Ph.D., CLIA Director Of Education, [facility] Current methodology and interpretive comments last revised on 09/15/2022. Jossie King MD LAB BLOOD ORDERABL ES Final Result [facility] * (ABNORMAL) CBC with auto differential (07/29/2024 11:01 AM BREWERY PUMPER) WBC 5.1 3.8 - 9.9 K/cumm Hgb 11.5(L) 13.0 - 17.5 g/dL [facility] Hct 34.4(L) 38.9 - 50.3 % [facility] Plt 208 150 - 400 K/cumm [facility] MPV 10.8 9.1 - 12.3 fL [facility] RBC 3.76(L) 4.30 - 5.80 M/cumm [facility] MCV 91.5 81.3 - 96.4 fL [facility] MCH 30.6 27.1 - 33.3 pg [facility] MCHC 33.4 32.3 - 35.7 g/dL [facility] RDW CV 14.3 11.1 - 14.9 % [facility] RDW SD 47.9 35.7 - 48.1 fL [facility] NRBC abs 0.00 0.00 - 0.01 K/cumm [facility] Blood 07/29/2024 11:0 1 AM BREWERY PUMPER 07/29/2024 11:34 AM BREWERY PUMPER Narrative [facility] - 07/29/2024 11:45 AM BREWERY PUMPER This lab is being obtained as part of a Kidney transplant evaluation, is time sensitive, and should only be drawn during the evaluation visit at [address] Jossie King MD LAB BLOOD ORDERABL ES Final Result Performing Organization Address City/[facility]/ZIP Co de Phone Number [facility] [place] [address] * Hepatitis C antibody Blood (07/29/2024 11:01 AM BREWERY PUMPER) Hep C Ab Nonreactive Nonreactive Comment:Antibodies to HCV no t detected. Does NOT exclude the possibility of recent exposure to HCV. Current interpretive data was last revised on 22 Blood 07/29/2024 11:0 1 AM BREWERY PUMPER 07/29/2024 11:32 AM BREWERY PUMPER Narrative [facility] - 07/29/2024 12:47 PM BREWERY PUMPER This lab is being obtained as part of a Kidney transplant evaluation, is time sensitive, and should only be drawn during the evaluation visit at [address] Jossie King MD LAB MICROBIOLOGY - GENERAL ORDERABLES Final Result Performing Organization Address City/[facility]/ZIP Co de Phone Number [facility] [place] [address] * (ABNORMAL) Madiha-Morris virus (EBV) antibody panel Blood (07/29/2024 11:01 AM BREWERY PUMPER) [facility] EBV nuclear Ab Positive(A) Negative Comment:Indicates the presen ce of detectable IgG antibody to EBV Nuclear Antigen. EBV VCA IgG Positive(A) Negative [facility] Comment:Indicates the presen ce of antibody; 90% of the adult population will have been infected with EBV sometime in the past. EBV VCA IgM Negative Negative [facility] Comment:No detectable IgM an tibody to EBV-VCA. A negative result indicates no current infection with EBV. If clinical suspicion of acute EBV infection is present, testing should be repeated after one week. EBV interp Past Infection [facility] Blood 07/29/2024 11:0 1 AM BREWERY PUMPER 07/29/2024 11:33 AM BREWERY PUMPER Narrative [facility] - 07/29/2024 1:43 PM BREWERY PUMPER This lab is being obtained as part of a Kidney transplant evaluation, is time sensitive, and should only be drawn during the evaluation visit at [address] Lab[address] Jossie King MD LAB MICROBIOLOGY - GENERAL ORDERABLES Final Result [facility] [place] [address] * Hepatitis B core antibody, total Blood (07/29/2024 11:01 AM BREWERY PUMPER) [facility] Hep B core IgG/IgM Nonreactive Nonreactive Blood 07/29/2024 11:0 1 AM BREWERY PUMPER 07/29/2024 11:32 AM BREWERY PUMPER Narrative [facility] - 07/29/2024 12:47 PM BREWERY PUMPER This lab is being obtained as part of a Kidney transplant evaluation, is time sensitive, and should only be drawn during the evaluation visit at [address] Lab. Jossie King MD LAB MICROBIOLOGY - GENERAL ORDERABLES Final Result [facility] [place] [address] * Protein, urine, random (07/29/2024 11:01 AM BREWERY PUMPER) Protein, ur, quant 121.2 mg/dL Comment: Interpretive Data No reference range established. Current interpretive data was last revised 2019. Urine 07/29/2024 11:0 1 AM BREWERY PUMPER 07/29/2024 11:32 AM BREWERY PUMPER Narrative [facility] - 07/29/2024 12:18 PM BREWERY PUMPER This lab is being obtained as part of a Kidney transplant evaluation, is time sensitive, and should only be drawn during the evaluation visit at [address] Lab. Jossie King MD LAB URINE ORDERABL ES Final Result Performing Organization Address [facility] [place] [address] * Creatinine, urine, random (07/29/2024 11:01 AM BREWERY PUMPER) Creatinine Ur 167.1 mg/dL Comment: Interpretive Data No reference range established. Current interpretive data was last revised 2019. Urine 07/29/2024 11:0 1 AM BREWERY PUMPER 07/29/2024 11:32 AM BREWERY PUMPER Narrative [facility] - 07/29/2024 12:18 PM BREWERY PUMPER This lab is being obtained as part of a Kidney transplant evaluation, is time sensitive, and should only be drawn during the evaluation visit at [address] Lab. Jossie King MD LAB URINE ORDERABL ES Final Result [facility] [place] [address] * HSV 2 IgG Antibody Blood (07/29/2024 11:01 AM BREWERY PUMPER) HSV 2 IgG Nonreactive Nonreactive Comment: Interpretive Data 1. Nonreactive: No detectable IgG antibody to HSV-2. 2. Equivocal: Presence or absence of detectable antibodies to HSV-2 cannot be determined and the test should be repeated. 3. Reactive: Indicates presence of detectable IgG antibody to HSV-2. Current interpretive data was last revised on 2022. Blood 07/29/2024 11:0 1 AM BREWERY PUMPER 07/29/2024 11:33 AM BREWERY PUMPER Narrative [facility] - 07/29/2024 1:44 PM BREWERY PUMPER This lab is being obtained as part of a Kidney transplant evaluation, is time sensitive, and should only be drawn during the evaluation visit at [address] Jossie King MD LAB MICROBIOLOGY - GENERAL ORDERABLES Final Result Performing Organization Address [facility] Co de Phone Number [facility] [place] [address] * (ABNORMAL) HSV 1 IgG Antibody Blood (07/29/2024 11:01 AM BREWERY PUMPER) [facility] HSV 1 IgG Reactive( A) Nonreactive Comment: Interpretive Data 1. Nonreactive: No detectable IgG antibody to HSV-1. 2. Equivocal: Presence or absence of detectable antibodies to HSV-1 cannot be determined and the test should be repeated. 3. Reactive: Indicates presence of detectable IgG antibody to HSV-1. Current interpretive data was last revised on 2016. Blood 07/29/2024 11:0 1 AM BREWERY PUMPER 07/29/2024 11:33 AM BREWERY PUMPER Narrative [facility] - 07/29/2024 1:44 PM BREWERY PUMPER This lab is being obtained as part of a Kidney transplant evaluation, is time sensitive, and should only be drawn during the evaluation visit at [address]. Jossie King MD LAB MICROBIOLOGY - GENERAL ORDERABLES Final Result Performing Organization Address [facility] Co de Phone Number [facility] [place] [address] * RPR Blood (07/29/2024 11:01 AM BREWERY PUMPER) Pathologist [facility] RPR Nonreactive Nonreactive Blood 07/29/2024 11:0 1 AM BREWERY PUMPER 07/29/2024 11:33 AM BREWERY PUMPER Narrative [facility]NOTE [facility] - 07/29/2024 12:34 PM BREWERY PUMPER This lab is being obtained as part of a Kidney transplant evaluation, is time sensitive, and should only be drawn during the evaluation visit at [address] Lab. Jossie King MD LAB MICROBIOLOGY - GENERAL ORDERABLES Final Result Performing Organization Address City/[facility]/ZIP Co de Phone Number [facility] [place] [address] * Hepatitis B surface antibody (immune status) Blood (07/29/2024 11:01 AM BREWERY PUMPER) [facility] HBsAb (immune status) Reactive Comment:This result is consi stent with immunity to Hepatitis B Virus when used in the setting of routine screening. Current interpretive data was last revised on 22 Blood 07/29/2024 11:0 1 AM BREWERY PUMPER 07/29/2024 11:32 AM BREWERY PUMPER Narrative [facility] - 07/29/2024 12:47 PM BREWERY PUMPER This lab is being obtained as part of a Kidney transplant evaluation, is time sensitive, and should only be drawn during the evaluation visit at [address] Jossie King MD LAB MICROBIOLOGY - GENERAL ORDERABLES Final Result [facility] [place] [address] * Hepatitis B Surface Antigen Blood (07/29/2024 11:01 AM BREWERY PUMPER) Pathologist [facility] HepBsAg Nonreactive Nonreactive Blood 07/29/2024 11:0 1 AM BREWERY PUMPER 07/29/2024 11:32 AM BREWERY PUMPER Narrative [facility] - 07/29/2024 12:47 PM BREWERY PUMPER This lab is being obtained as part of a Kidney transplant evaluation, is time sensitive, and should only be drawn during the evaluation visit at [address]. Jossie King MD LAB MICROBIOLOGY - GENERAL ORDERABLES Final Result Performing Organization Address [facility] de Phone Number [facility] [place] [address] * (ABNORMAL) aPTT (07/29/2024 11:01 AM BREWERY PUMPER) aPTT 61(H) 28 - 38 sec Comment: Interpretive Data Heparin therapeutic range: 66.0 - 100.0 seconds. Range based on correlation with therapeutic heparin activity range of 0.3 - 0.7 Units/mL. Current interpretive data was last revised on 2023. Blood 07/29/2024 11:0 1 AM BREWERY PUMPER 07/29/2024 11:32 AM BREWERY PUMPER Narrative [facility] - 07/29/2024 11:42 AM BREWERY PUMPER This lab is being obtained as part of a Kidney transplant evaluation, is time sensitive, and should only be drawn during the evaluation visit at [address] Jossie King MD LAB BLOOD ORDERABL ES Final Result Performing Organization Address [facility] de Phone Number [facility] [place] [address] * (ABNORMAL) Protime-INR (07/29/2024 11:01 AM BREWERY PUMPER) PT 50.6(H) 9.7 - 13.0 sec INR 4.54(H) 0.90 - 1.20 [facility] Comment: Interpretive data Oral anticoagulant therapeutic ranges: Venous thromboembolism prophylaxis or treatment: 2.0-3.0 CARDIOLOGY Standard range: 2.0-3.0 High-intensity range: 2.5-3.5 Refer to indication-specific guidelines for appropriate target ranges for prosthetic heart valve replacement. Current interpretive data was last revised on 2019. Blood 07/29/2024 11:0 1 AM BREWERY PUMPER 07/29/2024 11:32 AM BREWERY PUMPER Narrative [facility] - 07/29/2024 11:42 AM BREWERY PUMPER This lab is being obtained as part of a Kidney transplant evaluation, is time sensitive, and should only be drawn during the evaluation visit at [address] Jossie King MD LAB BLOOD ORDERABL ES Final Result Performing Organization Address [facility] de Phone Number [facility] [place] [address] * Varicella Zoster IgG antibody Blood (07/29/2024 11:01 AM BREWERY PUMPER) Pathologist [facility] VZV IgG Reactive Reactive Comment:Reactive: Results diego ggest response to immunization or prior exposure to the virus. Blood 07/29/2024 11:0 1 AM BREWERY PUMPER 07/29/2024 11:33 AM BREWERY PUMPER Narrative [facility] 07/29/2024 1:45 PM BREWERY PUMPER This lab is being obtained as part of a Kidney transplant evaluation, is time sensitive, and should only be drawn during the evaluation visit at [address] Jossie King MD LAB MICROBIOLOGY - GENERAL ORDERABLES Final Result Performing Organization Address [facility] de Phone Number [facility] [place] [address] * (ABNORMAL) Uric acid (07/29/2024 11:01 AM BREWERY PUMPER) Pathologist [facility] Uric acid 2.0(L) 3.0 - 8.0 mg/dL Blood 07/29/2024 11:0 1 AM BREWERY PUMPER 07/29/2024 11:33 AM BREWERY PUMPER Narrative [facility] 07/29/2024 12:10 PM BREWERY PUMPER This lab is being obtained as part of a Kidney transplant evaluation, is time sensitive, and should only be drawn during the evaluation visit at [address]. Jossie King MD LAB BLOOD ORDERABL ES Final Result Performing Organization Address City/[facility] Co de Phone Number [facility] [place] [address] * (ABNORMAL) Phosphorus (07/29/2024 11:01 AM BREWERY PUMPER) [facility] Phosphorus, pl 5.1(H) 2.3 - 4.5 mg/dL Blood 07/29/2024 11:0 1 AM BREWERY PUMPER 07/29/2024 11:33 AM BREWERY PUMPER Narrative [facility] - 07/29/2024 12:10 PM BREWERY PUMPER This lab is being obtained as part of a Kidney transplant evaluation, is time sensitive, and should only be drawn during the evaluation visit at [address]. Jossie King MD LAB BLOOD ORDERABL ES Final Result Performing Organization Address [facility] de Phone Number [facility] [place] [address] * (ABNORMAL) PTH (07/29/2024 11:01 AM BREWERY PUMPER) [facility] PTH 444(H) 15 - 65 pg/mL Blood 07/29/2024 11:0 1 AM BREWERY PUMPER 07/29/2024 11:34 AM BREWERY PUMPER Narrative [facility] - 07/29/2024 12:02 PM BREWERY PUMPER This lab is being obtained as part of a Kidney transplant evaluation, is time sensitive, and should only be drawn during the evaluation visit at [address] Jossie King MD LAB BLOOD ORDERABL ES Final Result Performing Organization Address City/[facility] Co de Phone Number [facility] [place] [address] * (ABNORMAL) Hemoglobin A1c (07/29/2024 11:01 AM BREWERY PUMPER) [facility] Hgb A1C 9.0(H) 4.0 - 5.6 % Estimated Average Glucose 212 mg/dL [facility] Comment: The ADA recommends reporting an estimated Average Glucose (eAG) with all Hemoglobin A1c results using the equation derived from a study of 507 normal and diabetic adults. ??Minority populations were underrepresented and children were not included. ?? (Diabetes Care 2020; 43(S1): S66-S76). ??The eAG is not equivalent to a fasting glucose. Blood 07/29/2024 11:0 1 AM BREWERY PUMPER 07/29/2024 11:34 AM BREWERY PUMPER Narrative [facility] - 07/29/2024 11:53 AM BREWERY PUMPER This lab is being obtained as part of a Kidney transplant evaluation, is time sensitive, and should only be drawn during the evaluation visit at [address] Lab. [facility] LAB BLOOD ORDERABL ES Final Result Performing Organization Address City/[facility] Co de Phone Number [facility] [place] [address] * Gamma GT (07/29/2024 11:01 AM BREWERY PUMPER) [facility] GGT 22 10 - 50 Units/L Blood 07/29/2024 11:0 1 AM BREWERY PUMPER 07/29/2024 11:33 AM BREWERY PUMPER Narrative [facility] - 07/29/2024 12:40 PM BREWERY PUMPER This lab is being obtained as part of a Kidney transplant evaluation, is time sensitive, and should only be drawn during the evaluation visit at [address] Lab. [facility] LAB BLOOD ORDERABL ES Final Result Performing Organization Address City/[facility] Co de Phone Number [facility] [place] [address] * (ABNORMAL) Ferritin (07/29/2024 11:01 AM BREWERY PUMPER) [facility] Ferritin 761(H) 30 - 400 ng/mL Blood 07/29/2024 11:0 1 AM BREWERY PUMPER 07/29/2024 11:33 AM BREWERY PUMPER Narrative [facility] - 07/29/2024 12:10 PM BREWERY PUMPER This lab is being obtained as part of a Kidney transplant evaluation, is time sensitive, and should only be drawn during the evaluation visit at [facility] Lab. us Jossie King MD LAB BLOOD ORDERABL ES Final Result [facility] [place] [address] * (ABNORMAL) Lipid panel (07/29/2024 11:01 AM BREWERY PUMPER) Cholesterol 114 30 - 199 mg/dL Comment: [...] revised on 2018. Triglycerides 66 <=149 mg/dL [facility] Comment: Interpretive Data Ages < [...] revised on 2018. HDL 29(L) >=40 mg/dL [facility] Comment: Interpretive Data Ages < [...] on 2018. LDL, calculated 71 <=129 mg/dL [facility] Comment: Interpretive Data Ages < [...] revised on 2024. Non-HDL Cholesterol 85 mg/dL [facility] Comment: Interpretive Data Ages < [...] last revised on 2018. Chol/HDL ratio 4 [facility] Blood 07/29/2024 11:0 1 AM BREWERY PUMPER 07/29/2024 11:33 AM BREWERY PUMPER Narrative [facility] - 07/29/2024 12:10 PM BREWERY PUMPER This lab is being obtained as part of a Kidney transplant evaluation, is time sensitive, and should only be drawn during the evaluation visit at [facility] Lab. us Jossie King MD LAB BLOOD ORDERABL ES Final Result [facility] Department [place] [address] * (ABNORMAL) Comprehensive metabolic panel (07/29/2024 11:01 AM BREWERY PUMPER) Sodium 136 135 - 145 mmol/L Potassium, pl 4.6 3.3 - 4.9 mmol/L [facility] Chloride 93(L) 97 - 110 mmol/L [facility] CO2 26 22 - 32 mmol/L [facility] Anion gap 17(H) 2 - 15 mmol/L [facility] BUN 65(H) 6 - 25 mg/dL [facility] Creatinine 8.07(H) 0.80 - 1.30 mg/dL [facility] Glucose 280(H) 70 - 199 mg/dL [facility] Comment: Interpretive Data Fasting glucose [...] 2022. Calcium 9.4 8.5 - 10.3 mg/dL [facility] Bilirubin, total 0.3 0.1 - 1.2 mg/dL [facility] Protein, pl 7.2 6.5 - 8.5 g/dL [facility] Albumin 3.8 3.5 - 5.0 g/dL [facility] Alk phos 99 40 - 130 Units/L [facility] ALT 30 7 - 55 Units/L [facility] AST 31 10 - 50 Units/L [facility] Blood 07/29/2024 11:0 1 AM BREWERY PUMPER 07/29/2024 11:33 AM BREWERY PUMPER Narrative [facility] - 07/29/2024 12:10 PM BREWERY PUMPER This lab is being obtained as part of a Kidney transplant evaluation, is time sensitive, and should only be drawn during the evaluation visit at [facility] Lab. us Jossie King MD LAB BLOOD ORDERABL ES Final Result [facility] Department [place] [address] * (ABNORMAL) Oxalate (oxalic acid) (07/29/2024 10:53 AM BREWERY PUMPER) Oxalate 12.3(H) <=2.0 mcmol/L [facility] Comment: High value suggestive of Primary Hyperoxaluria. However, if the patient has chronic kidney disease (GFR<30 mL/min/1.73m2), plasma oxalate values up to 30 mcmol/L can be normal. The [facility] Hyperoxaluria Center is available to review case details and answer any questions regarding interpretation ([email or web address]; [phone]) ADDITIONAL INFORMATION This test has been modified from the radio program checker's instructions. Its performance characteristics were determined by [facility] in a manner consistent with CLIA requirements. This test has not been cleared or approved by the U.S. Food and Drug Administration. Test Performed by: [facility] [place] [address] Toolsmith: Jairo Higgins Ph.D.; CLIA# [id number] Blood 07/29/2024 10:5 3 AM BREWERY PUMPER 07/29/2024 11:37 AM BREWERY PUMPER us Jossie King MD LAB BLOOD ORDERABL ES Final Result [facility] [place] [address] [facility] * (ABNORMAL) Urinalysis reflex to microscopic (07/29/2024 10:53 AM BREWERY PUMPER) Color, ur Yellow Yellow Clarity, ur Cloudy(A) Clear [facility] Specific gravity, ur 1.022 1.003 - 1.030 [facility] pH, urine 6.0 [facility] Comment: Interpretive Data ? Urine pH is affected by diet, medications, systemic acid-base disturbances, and renal tubular function. ??pH may affect urinary stone formation. ??For example, urine pH below 6.0 may help reduce the tendency for calcium phosphate stones and pH greater than 6.0 may reduce the tendency for uric acid stone formation. Source: [facility] Current Interpretive Data was last revised on 2017 Protein, ur ql 2+(A) Negative [facility] Glucose, ur ql 4+(A) Negative [facility] Ketones, ur Negative Negative [facility] Bilirubin, ur Negative Negative [facility] Blood, ur 3+(A) Negative [facility] Urobilinogen, ur <2.0 <2.0 mg/dL [facility] Nitrite, ur Negative Negative [facility] Leukocyte esterase, ur 2+(A) Negative [facility] UA reflex comment Reflex to microscopic UA will be performed. [facility] Urine 07/29/2024 10:5 3 AM BREWERY PUMPER 07/29/2024 11:27 AM BREWERY PUMPER Narrative [facility] - 07/29/2024 11:29 AM BREWERY PUMPER This lab is being obtained as part of a Kidney transplant evaluation, is time sensitive, and should only be drawn during the evaluation visit at [facility] Lab. Jossie King MD LAB URINE ORDERABL ES Final Result Performing Organization Address City/[facility] Co de Phone Number [facility] [place] [address] * (ABNORMAL) Urinalysis, microscopic only (07/29/2024 10:53 AM BREWERY PUMPER) WBC, ur 21-50(A) 0 - 5 /HPF RBC, ur >50(A) 0 - 2 /HPF [facility] Epithelial cells, squamous, ur 1-5 0 - 5 /HPF [facility] Bacteria, ur Trace(A) [facility] Mucous, ur Present(A) [facility] Hyaline casts, ur 1-5 0 - 10 /LPF [facility] Urine 07/29/2024 10:5 3 AM BREWERY PUMPER 07/29/2024 11:27 AM BREWERY PUMPER Jossie King MD LAB URINE ORDERABL ES Final Result Performing Organization Address [facility]/ZIP Co de Phone Number [facility] [place] [address] * Cardiology Document Scan (06/07/2024 11:10 AM CDT) Anatomical Region Laterality Modality Other us Karen Barnes NP CV CARDIAC SERVICES PROCEDUR ES Final Result * (ABNORMAL) TSH (10/27/2023 2:30 AM BREWERY PUMPER) Thyroid Stimulating Hormone 13.20(H) 0.30 - 4.20 mcIUnit/mL Blood 10/27/2023 2:30 AM BREWERY PUMPER 10/27/2023 2:42 AM BREWERY PUMPER us Lorne Mcnulty MD LAB BLOOD ORDERABLES Final Result [facility] [address] [place] [address] from Last 3 Months or Most Recently Relevant to Health Maintenance Insurance [facility] MEDICARE SOLUTIONS IDPA MEDICARE SOLUTIONS TRANSPLANT [employer] MEDICARE RISK IDPA TRANSPLANT [employer] MEDICARE RISK IDPA Advance Directives For more information, please contact: [phone] * Full Code (Latest Code Status on File) Date Activated Date Inactivated Comments 10/13/2023 11:32 PM 11/03/2023 11:42 PM * Full Code Date Activated Date Inactivated Comments 06/05/2022 6:17 AM 06/29/2022 6:20 PM * Full Code Date Activated Date Inactivated Comments 06/05/2022 4:43 AM 06/05/2022 4:43 AM * Full Code Date Activated Date Inactivated Comments 06/04/2022 9:55 PM 06/05/2022 4:43 AM Care Teams Supervisor Title Relationship Specialty Start Date End Date Aditya Castro MD [address] [place] [address] PCP - General 10/17/19 Alondra Lambert, RN [address] [address] Power System Electrical Engineer 03/06/24 Hamlet Ortega Jr., MD [address] [place] [address] Consulting Physician Cardiovascular Disease 05/10/24 Leandro Reyes MD [address] [facility] 1 [place] [address] Consulting Physician Nephrology 07/30/24
--- OUTSIDE RECORDS SUMMARY | 2024-09-07 23:31 | XMS_ITS | Encounter Summary ---
Author Organization [facility] Address [address] [place] [address] Care Team Providers Care Attendant Sales Name Role Phone Jhonatan Bellamy MD Primary Care Provider [phone] Encounter Details Date Type Department Care Team (Late st Contact Info) Description 06/05/2017 Orders Only [facility] Oncology and Hematology - [place] [address] [facility] [address] [place] [address] Fernando Schmid MD [address] [facility] [address] [place] [address] Social History Tobacco Use Types [...] on filedocumented in this encounter Care Teams Attendant Sales Relationship Specialty Start Date End Date Jhonatan Bellamy MD [address] [place] [phone] PCP - General Family Practice 06/05/17 09/10/18 documented as of this encounter
--- OUTSIDE RECORDS SUMMARY | 2024-09-07 23:31 | XMS_ITS | Encounter Summary ---
Author Organization [facility] Address [address] [place] [address] Care Team Providers Care Lead Data Entry Operator Name Role Phone Jhonatan Bellamy MD Primary Care Provider [phone] Encounter Details Date Type Department Care Team (Late st Contact Info) Description 07/10/2017 Orders Only [facility] Oncology and Hematology - [place] [address] [facility] [address] [place] [address] Fernando Schmid MD [address] [facility] [address] [place] [address] Anemia of chronic renal failure, [...] Primary documented in this encounter Care Teams Lead Data Entry Operator Relationship Specialty Start Date End Date Jhonatan Bellamy MD [address] [place] [address] PCP - General Family Practice 06/05/17 09/10/18 documented as of this encounter
--- OUTSIDE RECORDS SUMMARY | 2024-09-07 23:31 | XMS_ITS | Encounter Summary ---
Author Organization [facility] Address [address] [place] [address] Care Team Providers Care Communications Equipment Installer Name Role Phone Jhonatan Bellamy MD Primary Care Provider [phone] Encounter Details Date Type Department Care Team (Late st Contact Info) Description 09/04/2017 Orders Only [facility] Oncology and Hematology - [place] [address] [phone] Tanna Costa, RN History of anemia due [...] (severe) documented in this encounter Care Teams Communications Equipment Installer Relationship Specialty Start Date End Date Jhonatan Bellamy MD [address] [place] [address] PCP - General Family Practice 06/05/17 09/10/18 documented as of this encounter
--- OUTSIDE RECORDS SUMMARY | 2024-09-07 23:31 | XMS_ITS | Encounter Summary ---
Author Organization [facility] Address [address] [place] [address] Care Team Providers Care Landfill Attendant Name Role Phone Jhonatan Bellamy MD Primary Care Provider [phone] Reason for Visit * Reason Comments Follow Up * Eval and Treat (Routine) - Closed Specialty Diagnoses / Procedures Referred By Contact Referred To Contact Hematology and Oncology / Oncology Diagnoses Anemia DVT (deep venous thrombosis) NEW CONSULT LOW BLOOD CT, BLOOD CLOT RT. KNEE Procedures OFFICE VISIT NEW PATIENT Finn Bellamy MD [address] [place] [address] Phone: tel: fax: Fernando Schmid MD [address] [place] [address] Phone: tel: fax: Referral ID Status Reason Start Date Expiration Date Visits Re quested Visits Authorized [id number] Closed 06/05/2017 07/06/2018 100 100 Encounter Details Date Type Department Care Team (Late st Contact Info) Description 06/05/2017 10:30 AM CDT Office Visit [facility] Oncology and Hematology - [place] [address] [facility] [address] [place] [address] Fernando Schmid MD [address] [place] [address] Anemia of chronic renal failure, [...] this with his primary care physician and drafter automotive design layout. ? 06/05/2017 Fernando Schmid MD documented in this encounter Plan of Treatment Not on file documented as of this encounter Results * BASIC METABOLIC PANEL (07/11/2017) Blood Fernando Schmid MD CHEMISTRY ORDERABLES Final Resu lt Performing Organization Address City/[facility]/ZIP Co de Phone Number EXTERNAL LAB * (ABNORMAL) CBC WITH DIFFERENTIAL (07/10/2017) Blood Fernando Schmid MD HEMATOLOGY ORDERABLES Final Res ult EXTERNAL LAB documented in this encounter Visit Diagnoses Diagnosis Anemia of chronic renal failure, stage 4 (severe) documented in this encounter Care Teams Landfill Attendant Relationship Specialty Start Date End Date Jhonatan Bellamy MD [address] [place] [phone] PCP - General Family Practice 06/05/17 09/10/18 documented as of this encounter
--- OUTSIDE RECORDS SUMMARY | 2024-09-07 23:31 | XMS_ITS | Encounter Summary ---
Author Organization [facility] Address [address] [place] [address] Care Team Providers Care Aerodynamics Professor Name Role Phone Jhonatan Bellamy MD Primary Care Provider [phone] Encounter Details Date Type Department Care Team (Late st Contact Info) Description 07/24/2017 Orders Only [facility] Oncology and Hematology - [place] [address] [phone] Tanna Costa, RN Anemia of chronic renal [...] (severe) documented in this encounter Care Teams Aerodynamics Professor Relationship Specialty Start Date End Date Jhonatan Bellamy MD [address] [place] [phone] PCP - General Family Practice 06/05/17 09/10/18 documented as of this encounter
--- OUTSIDE RECORDS SUMMARY | 2024-09-07 23:31 | XMS_ITS | Encounter Summary ---
Author Organization [facility] Address [address] [place] [address] Care Team Providers Care Traffic Police Officer Name Role Phone Jhonatan Bellamy MD Primary Care Provider [phone] Reason for Referral * Outpatient Services (Routine) - Closed Specialty Diagnoses / Procedures Referred By Aguilar lora Referred To Contact Diagnoses Acute deep vein thrombosis (DVT) of distal end of right lower extremity Procedures US VENOUS DOPPLER LEG RIGHT Fernando Schmid MD [address] [place] [address] Phone: tel: fax: Referral ID Status Reason Start Date Expiration Date Visits Requested Visits Authorized [id number] Closed Ordering Department To Schedule 07/10/2017 08/10/2018 1 1 A R COLLECTIONS REP * Eval and Treat (Routine) - Closed Specialty Diagnoses / Procedures Referred By Aguilar lora Referred To Contact Pulmonology Diagnoses Sleep apnea in adult Fernando Schmid MD [address] [place] [address] Phone: tel: fax: Carla Hall MD [address] [facility] [[email or web address] [address] [place] [address] Phone: tel: fax: Referral ID Status Reason Start Date Expiration Date V isits Requested Visits Authorized [id number] Closed CRS To Schedule (STL) 07/10/2017 07/10/2018 1 1 A R COLLECTIONS REP Reason for Visit * Reason Comments Follow Up Encounter Details Date Type Department Care Team (Late st Contact Info) Description 07/10/2017 1:00 PM A R COLLECTIONS REP Office Visit [facility] Oncology and Hematology - [place] [address] [facility] [address] [place] [address] Fernanod Schmid MD [address] [facility] [address] [place] [address] History of anemia due to [...] Comments Blood Pressure 143/63 07/10/2017 1:05 PM A R COLLECTIONS REP Pulse 69 07/10/2017 1:05 PM A R COLLECTIONS REP Temperature 36.8 ??C (98.2 ??F) 07/10/2017 1:05 PM CS T Respiratory Rate 16 07/10/2017 1:05 PM A R COLLECTIONS REP Oxygen Saturation - - Inhaled Oxygen Concentration - - Weight 115.1 kg (253 lb 11.2 oz) 07/10/2017 1:05 PM A R COLLECTIONS REP Height 177.8 cm (5' 10 ) 07/10/2017 1:05 PM A R COLLECTIONS REP Body Mass Index 36.4 07/10/2017 1:05 PM A R COLLECTIONS REP documented in this encounter Progress Notes * [...] this with his primary care physician and feeder worker power unit operator. ? 07/10/2017 Fernando Schmid MD A R COLLECTIONS REP documented in this encounter Plan of Treatment [...] extremity documented in this encounter Care Teams Traffic Police Officer Relationship Specialty Start Date End Date Jhonatan Bellamy MD [address] [place] [address] PCP - General Family Practice 06/05/17 09/10/18 documented as of this encounter
--- OUTSIDE RECORDS SUMMARY | 2024-09-07 23:31 | XMS_ITS | Continuity of Care Document ---
Author Organization [facility] Address [address] [place] [address] [place] [address] Phone Care Team Providers Care Acds Block 1 Operator Name Role Phone Carlos Garcia Unavailable Unavailable Advance Directives Directive Yes / No Effective Date File Name No Information Encounters Encounter Description Practice Location Reason(s) For Visit Diagnoses Date Provider Providers Copied on Encounter [facility], [address], [place], [place], [id number], [place] tel:[phone] [facility] No Information Radha Gonzalez. [address] [place], [place], [facility], [place]. tel:[phone] Referring Provider: Yannick Remy, [facility] [address], [place], [place], [facility]. tel:[phone] Family History Family Member Type Diagnosis Age At Onset No Information Payers Payer name Insurance type Covered libertarian ID Authoriza tion(s) Medicaid [facility] [id number] Social History Type Description Quantity Date Captured [...]
--- OUTSIDE RECORDS SUMMARY | 2024-09-07 23:31 | XMS_ITS | Encounter Summary ---
Author Organization [facility] Address [address] [place] [address] Care Team Providers Care Industrial Roofer Name Role Phone Jhonatan Bellamy MD Primary Care Provider [phone] Encounter Details Date Type Department Care Team (Late st Contact Info) Description 08/25/2017 Orders Only [facility] Oncology and Hematology - [place] [address] [facility] [address] [place] [address] Fernando Schmid MD [address] [facility] [address] [place] [address] History of anemia due to [...] disease documented in this encounter Care Teams Industrial Roofer Relationship Specialty Start Date End Date Jhonatan Bellamy MD [address] [place] [address] PCP - General Family Practice 06/05/17 09/10/18 documented as of this encounter
--- OUTSIDE RECORDS SUMMARY | 2024-09-07 23:32 | XMS_ITS | Encounter Summary ---
Author Organization [facility] Address [address] [place] [address] Care Team Providers Care Record Pressman Name Role Phone Aditya Castro MD Primary Care Provider [phone] Alondra Lambert RN Unavailable [phone] Shannon Brock MD, Hamlet Gordon Unavailable [phone] Encounter Details Date Type Department Care Team (Late st Contact Info) Description 07/26/2024 Telephone [facility] Transplant Kidney [address] [address] [phone] [place] [address] Elsie Cornejo Social History Tobacco Use Types [...] Recorded In the past 12 months has [employer], gas, oil, or water [email or web address] threatened to shut off services in your [...] any clubs o r organizations such as roman catholic groups, unions, fraternal or athletic groups, or [...] on file Legal Sex Male 3:42 AM HOSPICE VOLUNTEER COORDINATOR Gender Identity Not on file Sexual Orientation Not on file documented as of this encounter Miscellaneous Notes * Telephone Encounter - Elsie Cornejo - 07/26/2024 2:35 PM CST Received call from [facility]ER needing to speak with nurse coordinator regarding: [facility] called and this is not there patient if needed call back [phone] Patient needs addressed. No follow-up needed. ICE VOLUNTEER COORDINATOR documented in this encounter Plan of Treatment Not on file documented as of this encounter Visit Diagnoses Not on filedocumented in this encounter Care Teams Record Pressman Relationship Specialty Start Date End Date Aditya Castro MD [address] [place] [address] PCP - General 10/17/19 Alondra Lambert, RN [address] [facility] [address] [place] [address] Sizing Machine Tender 03/06/24 Hamlet Ortega Jr., MD [address] [place] [address] Consulting Physician Cardiovascular Disease 05/10/24 documented as of this encounter
--- OUTSIDE RECORDS SUMMARY | 2024-09-07 23:32 | XMS_ITS | Encounter Summary ---
Author Organization [facility] Healthcare Address [address] [place] [address] Care Team Providers Care Employment Evaluator/Case Manager Name Role Phone Aditya Castro MD Primary Care Provider [phone] Alondra Lambert RN Unavailable [phone] Shannon Brock MD, Ham[place] P. Unavailable [phone] Reason for Referral * Cardiology (Routine) - Pending Review Specialty Diagnoses / Procedures Referred By Contac t Referred To Contact Diagnoses End stage renal disease (CMS/HCC) (HCC) Procedures ECG 12 lead Jossie King MD [address] [place] [address] Phone: tel: fax: [facility] [address] [place] [address] Referral ID Status Reason Start Date Expiration Date V isits Requested Visits Authorized [id number] Pending Review 05/10/2024 06/09/2025 1 1 NSED INVESTMENT SALES ASSISTANT Reason for Visit * Cardiology (Routine) - Pending Review Specialty Diagnoses / Procedures Referred By Contac t Referred To Contact Diagnoses End stage renal disease (CMS/HCC) (HCC) Procedures ECG 12 lead Jossie King MD [address] [place] [address] Phone: tel: fax: [facility] [address] [facility] [place] [address] Referral ID Status Reason Start Date Expiration Date V isits Requested Visits Authorized [id number] Pending Review 05/10/2024 06/09/2025 1 1 Encounter Details Date Type Department Care Team (Latest Contact Info) Description 07/29/2024 10:53 AM LICENSED INVESTMENT SALES ASSISTANT - 07/29/2024 11:59 PM LICENSED INVESTMENT SALES ASSISTANT Hospital Encounter [facility] [address] [place] [address] End stage renal disease (CMS/HCC) (HCC) Discharge [...] In the past 12 months has e [employer], gas, oil, or water [employer] threatened to shut off services in your [...] file Legal Sex Male 3:42 AM LICENSED INVESTMENT SALES ASSISTANT Gender Identity Not on file Sexual [...] PUMP: Continue Omnipod 5 insulin pump with Keduo G6 CGM at home settings: TIME BASAL [...] 1 tablet (25 mcg total) by mouth assembly line inspector before breakfast 30 tablet 1 11/04/2023 Linzess [...] (20 mg total) by mouth daily peg [id number] cerin (ARTIFICAL TEARS) 1-0.2-0.2 % ophthalmic solution [...] 500 mg tablet warfarin (COUMADIN) 2 mg tabletIndications:Ak chanical Valve Thromboembolism Prophylaxis Take 4 mg [...] Comments ECG 12-LEAD Routine 07/29/2024 11:14 AM LICENSED INVESTMENT SALES ASSISTANT End stage renal disease (CMS/HCC) (HCC) documented in this encounter Results * ECG 12 lead (07/29/2024 11:14 AM [facility]) Ventricular Rate EKG/Min 117 BPM [facility] Atrial Rate 117 BPM [facility] MD-Interval (MSEC) 144 ms [facility] QRS-Interval (MSEC) 126 ms [facility] QT-Interval (MSEC) 366 ms [facility] QTc 510 ms [facility] R Cochrane -40 degrees [facility] T Cochrane 147 degrees [facility] Diagnosis Poor data quality, interpretation [...] SAL M.D ([id number]) on 07/29/2024 3:38:41 PM [facility] 07/29/2024 11:1 4 AM LICENSED INVESTMENT SALES ASSISTANT 07/29/2024 3:38 PM LICENSED INVESTMENT SALES ASSISTANT Jossie King MD ECG ORDERABLES Fi nal Result [facility] documented in this encounter Visit Diagnoses Diagnosis End stage renal disease (CMS/HCC) (HCC) End stage renal disease documented in this encounter Care Teams Employment Evaluator/Case Manager Relationship Specialty Start Date End Date Aditya Castro MD [address] [facility] [place] [address] PCP - General 10/17/19 Alondra Lambert, RN [address] [address] Sql Programmer Analyst 03/06/24 Hamlet Ortega Jr., MD [address] [place] [address] Consulting Physician Cardiovascular Disease 05/10/24 documented as of this encounter
--- OUTSIDE RECORDS SUMMARY | 2024-09-07 23:32 | XMS_ITS | Encounter Summary ---
Author Organization [facility] Healthcare Address [address] [place] [address] Care Team Providers Care Assistant Professor Sculpture Name Role Phone Aditya Castro MD Primary Care Provider [phone] Alondra Lambert RN Unavailable [phone] Shannon Brock MD, Hamlet P. Unavailable [phone] Leandro Reyes MD Unavailable [phone] Encounter Details Date Type Department Care Team (Late st Contact Info) Description 08/06/2024 Documentation [facility] Transplant Kidney [address] [facility] [address] [phone] [place] [address] Alondra Lambert, RN [address] [facility] [address] [place] [id number] Social History Tobacco Use Types Packs/Day Years [...] doctor or pharmacy Never 12/01/2023 [facility] Utilities Answer Date Recorded In [...] week 08/01/2024 How often do you attend mormonism or yazidi serv ices? Never 08/01/2024 Do [...] in the past 12 m [facility], were you homeless or living in a [...] file Legal Sex Male 3:42 AM SUPERVISOR INDUSTRIAL GARMENT Gender Identity Not on file Sexual Orientation Not on file documented as of this encounter Plan of Treatment Not on file documented as of this encounter Visit Diagnoses Not on filedocumented in this encounter Care Teams Assistant Professor Sculpture Relationship Specialty Start Date End Date Aditya Castro MD [address] [facility] [place] [address] PCP - General 10/17/19 Alondra Lambert, RN [address] [address] Pharmacy Customer Care Specialist 03/06/24 Hamlte Ortega Jr., MD [address] [place] [address] Consulting Physician Cardiovascular Disease 05/10/24 Leandro Reyes MD [address] [facility] [address] [place] [address] Consulting Physician Nephrology 07/30/24 documented as of this encounter
--- OUTSIDE RECORDS SUMMARY | 2024-09-07 23:32 | XMS_ITS | Encounter Summary ---
Author Organization [facility] Healthcare Address [address] [place] [address] Care Team Providers Care Stream Control Officer Name Role Phone Aditya Castro MD Primary Care Provider [phone] Alondra Lambert RN Unavailable [phone] Shannon Brock MD, [place] Gordon Unavailable [phone] Encounter Details Date Type Department Care Team (Late st Contact Info) Description 07/29/2024 1:15 PM DRY DRUG WORKER Lab [facility] Advanced Medicine [facility] Advanced Medicine ([facility]) [address] [place] [phone] End stage renal disease (CMS/HCC) (HCC); ESRD (end stage renal disease) (CMS/HCC) ([facility]) Social History Tobacco Use Types [...] week 08/01/2024 How often do you attend yarsanism or sabianist serv ices? Never 08/01/2024 Do [...] in a assisted (including now)? No 10/16/2023 Housing Stability Vital Sign Answer Rubens e Recorded In the last 12 months, was t here a time when you were not able to pay the mortgage or rent on time? No 08/01/2024 In the past 12 months, how m any times have you moved where you were living? 1 08/01/2024 At any time in the past 12 m [facility], were you homeless or living in a assisted (including now)? No 08/01/2024 Personal Safety Answer Date Recorded Have you ever been in or are you currently in a harmful physical or emotional relationship or is someone making you feel afraid or unsafe? 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 Male 3:42 AM DRY DRUG WORKER Gender Identity Not on file Sexual Orientation Not on file documented as of this encounter Plan of Treatment Not on file documented as of this encounter Procedures Procedure Name Priority Date/Time Associated Diagnosis Comments TYPE AND SCREEN Routine 07/29/2024 11:23 AM DRY DRUG WORKER End stage renal disease (CMS/HCC) (HCC) ABO/RH Routine 07/29/2024 11:13 AM DRY DRUG WORKER LR HLA TYPING (CLASS I AND CLASS II) Routine 07/29/2024 11:01 AM DRY DRUG WORKER End stage renal disease (CMS/HCC) (HCC) HLA CLASS I DNA (ABC) RECIPIENT Routine 07/29/2024 11:01 AM DRY DRUG WORKER End stage renal disease (CMS/HCC) (HCC) HLA ANTIBODY SCREEN BY SINGLE ANTIGEN Routine 07/29/2024 11:01 AM DRY DRUG WORKER End stage renal disease (CMS/HCC) (HCC) HLA CLASS II DNA (DR, DQ, DP) RECIPIENT Routine 07/29/2024 11:01 AM DRY DRUG WORKER End stage renal disease (CMS/HCC) (HCC) EGFR Routine 07/29/2024 11:01 AM DRY DRUG WORKER End stage renal disease (CMS/HCC) (HCC) DIFFERENTIAL AUTO Routine 07/29/2024 11: 01 AM DRY DRUG WORKER End stage renal disease (CMS/HCC) (HCC) PSA SCREEN Routine 07/29/2024 11:01 AM DRY DRUG WORKER End stage renal disease (CMS/HCC) (HCC) IRON PROFILE W/ IBC Routine 07/29/2024 1 1:01 AM DRY DRUG WORKER End stage renal disease (CMS/HCC) (HCC) HIV 1/2 ANTIBODY PLUS P24 ANTIGEN Routine 07/29/2024 11:01 AM DRY DRUG WORKER End stage renal disease (CMS/HCC) (HCC) CMV, IGG Routine 07/29/2024 11:01 AM DRY DRUG WORKER End stage renal disease (CMS/HCC) (HCC) HLA ANTIBODY SCREEN - SAB (CLASS I AND CLASS II) Routine 07/29/2024 11:01 AM DRY DRUG WORKER End stage renal disease (CMS/HCC) (HCC) CBC WITH AUTO DIFFERENTIAL Routine 07/29/2024 11:01 AM DRY DRUG WORKER End stage renal disease (CMS/HCC) (HCC) HEPATITIS C ANTIBODY Routine 07/29/2024 11:01 AM DRY DRUG WORKER End stage renal disease (CMS/HCC) (HCC) MADIHA-MORRIS VIRUS VCA ANTIBODY PANEL Routine 07/29/2024 11:01 AM DRY DRUG WORKER End stage renal disease (CMS/HCC) (HCC) HEPATITIS B CORE ANTIBODY, TOTAL Routine 07/29/2024 11:01 AM DRY DRUG WORKER End stage renal disease (CMS/HCC) (HCC) PROTEIN, URINE, RANDOM Routine 11:01 AM DRY DRUG WORKER End stage renal disease (CMS/HCC) (HCC) CREATININE, URINE, RANDOM Routine 07/29/2024 11:01 AM DRY DRUG WORKER End stage renal disease (CMS/HCC) (HCC) HSV 2 ANTIBODY, IGG Routine 07/29/2024 1 1:01 AM DRY DRUG WORKER End stage renal disease (CMS/HCC) (HCC) HSV 1 ANTIBODY, IGG Routine 07/29/2024 1 1:01 AM DRY DRUG WORKER End stage renal disease (CMS/HCC) (HCC) RPR Routine 07/29/2024 11:01 AM DRY DRUG WORKER End stage renal disease (CMS/HCC) (HCC) HEPATITIS B SURFACE ANTIBODY (IMMUNE STATUS) Routine 07/29/2024 11:01 AM DRY DRUG WORKER End stage renal disease (CMS/HCC) (HCC) HEPATITIS B SURFACE ANTIGEN Routine 07/29/2024 11:01 AM DRY DRUG WORKER End stage renal disease (CMS/HCC) (HCC) APTT Routine 07/29/2024 11:01 AM DRY DRUG WORKER End stage renal disease (CMS/HCC) (HCC) PROTIME-INR Routine 07/29/2024 11:01 AM DRY DRUG WORKER End stage renal disease (CMS/HCC) (HCC) VARICELLA ZOSTER ANTIBODY, IGG Routine 07/29/2024 11:01 AM DRY DRUG WORKER End stage renal disease (CMS/HCC) (HCC) URIC ACID Routine 07/29/2024 11:01 AM DRY DRUG WORKER End stage renal disease (CMS/HCC) (HCC) PHOSPHORUS Routine 07/29/2024 11:01 AM DRY DRUG WORKER End stage renal disease (CMS/HCC) (HCC) PTH Routine 07/29/2024 11:01 AM DRY DRUG WORKER End stage renal disease (CMS/HCC) (HCC) HEMOGLOBIN A1C Routine 07/29/2024 11:01 AM DRY DRUG WORKER End stage renal disease (CMS/HCC) (HCC) GAMMA GT Routine 07/29/2024 11:01 AM DRY DRUG WORKER End stage renal disease (CMS/HCC) (HCC) FERRITIN Routine 07/29/2024 11:01 AM DRY DRUG WORKER End stage renal disease (CMS/HCC) (HCC) LIPID PANEL Routine 07/29/2024 11:01 AM DRY DRUG WORKER End stage renal disease (CMS/HCC) (HCC) COMPREHENSIVE METABOLIC PANEL Routine 07/29/2024 11:01 AM DRY DRUG WORKER End stage renal disease (CMS/HCC) (HCC) OXALATE Routine 07/29/2024 10:53 AM DRY DRUG WORKER ESRD (end stage renal disease) (CMS/HCC) (HCC) URINALYSIS AND REFLEX TO MICROSCOPIC Routine 07/29/2024 10:53 AM DRY DRUG WORKER End stage renal disease (CMS/HCC) (HCC) URINALYSIS, MICROSCOPIC ONLY Routine 07/29/2024 10:53 AM DRY DRUG WORKER End stage renal disease (CMS/HCC) (HCC) documented in this encounter Results * Type and screen (07/29/2024 11:23 AM DRY DRUG WORKER) Maribel, indirect Negative ABO Rh A Positive [facility] Blood 07/29/2024 11:2 3 AM DRY DRUG WORKER 07/29/2024 11:43 AM DRY DRUG WORKER Narrative [facility] - 07/29/2024 12:45 PM DRY DRUG WORKER Please draw the ABO and the Type and Screen as two separate blood draws with each stamped with the two different times stamps as this is a regulatory requirement for this patient to be listed for Kidney Transplant. ??This lab is being obtained as part of a Kidney transplant evaluation, is time sensitive, and should only be drawn during the evaluation visit at [facility] Lab. Has the patient had Daratumumab or Isatuximab in the past 6 months?->Unknown Jossie King MD LAB BLOOD BANK ERNESTO T ORDERABLES Final Result Performing Organization Address City/[facility]/ZIP Co de Phone Number ALESSANDRA CARRION [facility] [place] [address] * ABO/Rh (07/29/2024 11:13 AM DRY DRUG WORKER) ABO Rh A Positive Blood 07/29/2024 11:1 3 AM DRY DRUG WORKER 07/29/2024 2:45 PM DRY DRUG WORKER Patrickniraj King MD LAB BLOOD BANK ERNESTO T ORDERABLES Final Result Performing Organization Address [facility] de Phone Number [facility] [place] [address] * (ABNORMAL) eGFR (07/29/2024 11:01 AM DRY DRUG WORKER) eGFR 7(L) >=60 mL/min/1. 73 m2 Comment: [...] reviewed 2021. Blood 07/29/2024 11:0 1 AM DRY DRUG WORKER 07/29/2024 11:33 AM DRY DRUG WORKER us Jossie King MD LAB BLOOD ORDERABL ES Final Result [facility] Department [place] [address] * Differential, auto (07/29/2024 11:01 AM DRY DRUG WORKER) Neutrophil abs 3.1 1.5 - 6.5 K/cumm Imm gran abs 0.0 0.0 - 0.1 K/cumm [facility] Lymphocyte abs 1.1 0.8 - 3.3 K/cumm [facility] Monocyte abs 0.7 0.2 - 0.8 K/cumm [facility] Eosinophil abs 0.2 0.0 - 0.5 K/cumm [facility] Basophil abs 0.0 0.0 - 0.1 K/cumm [facility] Neutrophil pct 60.3 % [facility] Comment: Interpretive Data Percent cell count reference ranges are not reported, since discordance with absolute values may lead to misinterpretation of CBC data. Current Interpretive Data was last revised on 2017. Imm gran pct 0.6 % [facility] Comment: Interpretive Data Percent cell count reference ranges are not reported, since discordance with absolute values may lead to misinterpretation of CBC data. Current Interpretive Data was last revised on 2017. Lymphocyte pct 21.4 % [facility] Comment: Interpretive Data Percent cell count reference ranges are not reported, since discordance with absolute values may lead to misinterpretation of CBC data. Current Interpretive Data was last revised on 2017. Monocyte pct 13.7 % [facility] Comment: Interpretive Data Percent cell count reference ranges are not reported, since discordance with absolute values may lead to misinterpretation of CBC data. Current Interpretive Data was last revised on 2017. Eosinophil pct 3.2 % [facility] Comment: Interpretive Data Percent cell count reference ranges are not reported, since discordance with absolute values may lead to misinterpretation of CBC data. Current Interpretive Data was last revised on 2017. Basophil pct 0.8 % [facility] Comment: Interpretive Data Percent cell count reference ranges are not reported, since discordance with absolute values may lead to misinterpretation of CBC data. Current Interpretive Data was last revised on 2017. Blood 07/29/2024 11:0 1 AM DRY DRUG WORKER 07/29/2024 11:34 AM DRY DRUG WORKER us Jossie King MD LAB BLOOD ORDERABL ES Final Result [facility] Department [place] [address] * (ABNORMAL) CBC with auto differential (07/29/2024 11:01 AM DRY DRUG WORKER) WBC 5.1 3.8 - 9.9 K/cumm Hgb 11.5(L) 13.0 - 17.5 g/dL [facility] Hct 34.4(L) 38.9 - 50.3 % [facility] Plt 208 150 - 400 K/cumm [facility] MPV 10.8 9.1 - 12.3 fL [facility] RBC 3.76(L) 4.30 - 5.80 M/cumm [facility] MCV 91.5 81.3 - 96.4 fL [facility] MCH 30.6 27.1 - 33.3 pg [facility] MCHC 33.4 32.3 - 35.7 g/dL [facility] RDW CV 14.3 11.1 - 14.9 % [facility] RDW SD 47.9 35.7 - 48.1 fL [facility] NRBC abs 0.00 0.00 - 0.01 K/cumm [facility] Blood 07/29/2024 11:0 1 AM DRY DRUG WORKER 07/29/2024 11:34 AM DRY DRUG WORKER Narrative [facility] - 07/29/2024 11:45 AM DRY DRUG WORKER This lab is being obtained as part of a Kidney transplant evaluation, is time sensitive, and should only be drawn during the evaluation visit at [address] Jossie King MD LAB BLOOD ORDERABL ES Final Result Performing Organization Address [facility] de Phone Number [facility] [place] [address] * (ABNORMAL) CMV, IgG Blood (07/29/2024 11:01 AM DRY DRUG WORKER) [facility] CMV IgG Positive( A) Negative Comment: Interpretive [...] CMV infection. Blood 07/29/2024 11:0 1 AM DRY DRUG WORKER 07/29/2024 11:33 AM DRY DRUG WORKER Narrative [facility] - 07/29/2024 1:44 PM DRY DRUG WORKER This lab is being obtained as part of a Kidney transplant evaluation, is time sensitive, and should only be drawn during the evaluation visit at [address] Jossie King MD LAB MICROBIOLOGY - GENERAL ORDERABLES Final Result Performing Organization Address [facility] de Phone Number [facility] [place] [address] * (ABNORMAL) Comprehensive metabolic panel (07/29/2024 11:01 AM DRY DRUG WORKER) [facility] Sodium 136 135 - 145 mmol/L Potassium, pl 4.6 3.3 - 4.9 mmol/L [facility] Chloride 93(L) 97 - 110 mmol/L [facility] CO2 26 22 - 32 mmol/L [facility] Anion gap 17(H) 2 - 15 mmol/L [facility] BUN 65(H) 6 - 25 mg/dL [facility] Creatinine 8.07(H) 0.80 - 1.30 mg/dL [facility] Glucose 280(H) 70 - 199 mg/dL [facility] Comment: Interpretive Data Fasting [...] 2022. Calcium 9.4 8.5 - 10.3 mg/dL [facility] Bilirubin, total 0.3 0.1 - 1.2 mg/dL [facility] Protein, pl 7.2 6.5 - 8.5 g/dL [facility] Albumin 3.8 3.5 - 5.0 g/dL [facility] Alk phos 99 40 - 130 Units/L [facility] ALT 30 7 - 55 Units/L [facility] AST 31 10 - 50 Units/L [facility] Blood 07/29/2024 11:0 1 AM DRY DRUG WORKER 07/29/2024 11:33 AM DRY DRUG WORKER Narrative [facility] - 07/29/2024 12:10 PM DRY DRUG WORKER This lab is being obtained as part of a Kidney transplant evaluation, is time sensitive, and should only be drawn during the evaluation visit at [facility]. us Jossie King MD LAB BLOOD ORDERABL ES Final Result [facility] Department [place] [address] * Creatinine, urine, random (07/29/2024 11:01 AM DRY DRUG WORKER) Creatinine Ur 167.1 mg/dL Comment: Interpretive Data No reference range established. Current interpretive data was last revised 2019. Urine 07/29/2024 11:0 1 AM DRY DRUG WORKER 07/29/2024 11:32 AM DRY DRUG WORKER Narrative [facility] - 07/29/2024 12:18 PM DRY DRUG WORKER This lab is being obtained as part of a Kidney transplant evaluation, is time sensitive, and should only be drawn during the evaluation visit at [address] Lab[address] Jossie King MD LAB URINE ORDERABL ES Final Result Performing Organization Address [facility] Co de Phone Number [facility] Department [place] [address] * (ABNORMAL) Madiha-Morris virus (EBV) antibody panel Blood (07/29/2024 11:01 AM DRY DRUG WORKER) [facility] EBV nuclear Ab Positive(A) Negative Comment:Indicates the presen ce of detectable IgG antibody to EBV Nuclear Antigen. EBV VCA IgG Positive(A) Negative [facility] Comment:Indicates the presen ce of antibody; 90% of the adult population will have been infected with EBV sometime in the past. EBV VCA IgM Negative Negative [facility] Comment:No detectable IgM an tibody to EBV-VCA. A negative result indicates no current infection with EBV. If clinical suspicion of acute EBV infection is present, testing should be repeated after one week. EBV interp Past Infection [facility] Blood 07/29/2024 11:0 1 AM DRY DRUG WORKER 07/29/2024 11:33 AM DRY DRUG WORKER Narrative [facility] - 07/29/2024 1:43 PM DRY DRUG WORKER This lab is being obtained as part of a Kidney transplant evaluation, is time sensitive, and should only be drawn during the evaluation visit at [address] Lab[address] Jossie King MD LAB MICROBIOLOGY - GENERAL ORDERABLES Final Result Performing Organization Address City/[facility] Co de Phone Number [facility] Department [place] [address] * (ABNORMAL) Ferritin (07/29/2024 11:01 AM DRY DRUG WORKER) [facility] Ferritin 761(H) 30 - 400 ng/mL Blood 07/29/2024 11:0 1 AM DRY DRUG WORKER 07/29/2024 11:33 AM DRY DRUG WORKER Narrative [facility] - 07/29/2024 12:10 PM DRY DRUG WORKER This lab is being obtained as part of a Kidney transplant evaluation, is time sensitive, and should only be drawn during the evaluation visit at [address] Jossie King MD LAB BLOOD ORDERABL ES Final Result Performing Organization Address [facility] Co de Phone Number [facility] [place] [address] * Gamma GT (07/29/2024 11:01 AM DRY DRUG WORKER) [facility] GGT 22 10 - 50 Units/L Blood 07/29/2024 11:0 1 AM DRY DRUG WORKER 07/29/2024 11:33 AM DRY DRUG WORKER Narrative [facility] 07/29/2024 12:40 PM DRY DRUG WORKER This lab is being obtained as part of a Kidney transplant evaluation, is time sensitive, and should only be drawn during the evaluation visit at [address] Jossie King MD LAB BLOOD ORDERABL ES Final Result Performing Organization Address [facility] de Phone Number [facility] [place] [address] * HIV 1/2 Antibody plus p24 Antigen Blood (07/29/2024 11:01 AM DRY DRUG WORKER) [facility] HIV 1/2 ab + p24 ag Nonreactive Nonreactive Comment:Nonreactive for HIV- 1 antigen and HIV-1/HIV-2 antibodies. No laboratory evidence of HIV infection. If acute HIV infection is suspected, consider testing for HIV-1 RNA. Current interpretive data was last revised on 22. Blood 07/29/2024 11:0 1 AM DRY DRUG WORKER 07/29/2024 11:32 AM DRY DRUG WORKER Narrative [facility] - 07/29/2024 12:13 PM DRY DRUG WORKER This lab is being obtained as part of a Kidney transplant evaluation, is time sensitive, and should only be drawn during the evaluation visit at [address] Jossie King MD LAB MICROBIOLOGY - GENERAL ORDERABLES Final Result Performing Organization Address [facility] [place] [address] * (ABNORMAL) HSV 1 IgG Antibody Blood (07/29/2024 11:01 AM DRY DRUG WORKER) HSV 1 IgG Reactive( A) Nonreactive Comment: Interpretive Data 1. Nonreactive: No detectable IgG antibody to HSV-1. 2. Equivocal: Presence or absence of detectable antibodies to HSV-1 cannot be determined and the test should be repeated. 3. Reactive: Indicates presence of detectable IgG antibody to HSV-1. Current interpretive data was last revised on 2016. Blood 07/29/2024 11:0 1 AM DRY DRUG WORKER 07/29/2024 11:33 AM DRY DRUG WORKER Narrative [facility] 07/29/2024 1:44 PM DRY DRUG WORKER This lab is being obtained as part of a Kidney transplant evaluation, is time sensitive, and should only be drawn during the evaluation visit at [address] Jossie King MD LAB MICROBIOLOGY - GENERAL ORDERABLES Final Result Performing Organization Address [facility] de Phone Number [facility] [place] [address] * HSV 2 IgG Antibody Blood (07/29/2024 11:01 AM DRY DRUG WORKER) Pathologist [facility] HSV 2 IgG Nonreactive Nonreactive Comment: Interpretive Data 1. Nonreactive: No detectable IgG antibody to HSV-2. 2. Equivocal: Presence or absence of detectable antibodies to HSV-2 cannot be determined and the test should be repeated. 3. Reactive: Indicates presence of detectable IgG antibody to HSV-2. Current interpretive data was last revised on 2022. Blood 07/29/2024 11:0 1 AM DRY DRUG WORKER 07/29/2024 11:33 AM DRY DRUG WORKER Narrative [facility] - 07/29/2024 1:44 PM DRY DRUG WORKER This lab is being obtained as part of a Kidney transplant evaluation, is time sensitive, and should only be drawn during the evaluation visit at [address] Lab[address] Jossie King MD LAB MICROBIOLOGY - GENERAL ORDERABLES Final Result Performing Organization Address [facility] Co de Phone Number [facility] [place] [address] * (ABNORMAL) Hemoglobin A1c (07/29/2024 11:01 AM DRY DRUG WORKER) [facility] Hgb A1C 9.0(H) 4.0 - 5.6 % Estimated Average Glucose 212 mg/dL [facility] Comment: The ADA recommends reporting an estimated Average Glucose (eAG) with all Hemoglobin A1c results using the equation derived from a study of 507 normal and diabetic adults. ??Minority populations were underrepresented and children were not included. ?? (Diabetes Care 2020; 43(S1): S66-S76). ??The eAG is not equivalent to a fasting glucose. Blood 07/29/2024 11:0 1 AM DRY DRUG WORKER 07/29/2024 11:34 AM DRY DRUG WORKER Narrative [facility] - 07/29/2024 11:53 AM DRY DRUG WORKER This lab is being obtained as part of a Kidney transplant evaluation, is time sensitive, and should only be drawn during the evaluation visit at [address] Lab[address] Jossie King MD LAB BLOOD ORDERABL ES Final Result Performing Organization Address [facility] Co de Phone Number [facility] [place] [address] * Hepatitis B core antibody, total Blood (07/29/2024 11:01 AM DRY DRUG WORKER) [facility] Hep B core IgG/IgM Nonreactive Nonreactive Blood 07/29/2024 11:0 1 AM DRY DRUG WORKER 07/29/2024 11:32 AM DRY DRUG WORKER Narrative [facility] - 07/29/2024 12:47 PM DRY DRUG WORKER This lab is being obtained as part of a Kidney transplant evaluation, is time sensitive, and should only be drawn during the evaluation visit at [address] Lab[address] Jossie King MD LAB MICROBIOLOGY - GENERAL ORDERABLES Final Result Performing Organization Address [facility] de Phone Number [facility] [place] [address] * Hepatitis B surface antibody (immune status) Blood (07/29/2024 11:01 AM DRY DRUG WORKER) HBsAb (immune status) Reactive Comment:This result is consi stent with immunity to Hepatitis B Virus when used in the setting of routine screening. Current interpretive data was last revised on 22 Blood 07/29/2024 11:0 1 AM DRY DRUG WORKER 07/29/2024 11:32 AM DRY DRUG WORKER Narrative [facility] 07/29/2024 12:47 PM DRY DRUG WORKER This lab is being obtained as part of a Kidney transplant evaluation, is time sensitive, and should only be drawn during the evaluation visit at [address] Jossie King MD LAB MICROBIOLOGY - GENERAL ORDERABLES Final Result Performing Organization Address [facility] de Phone Number [facility] Department [place] [address] * Hepatitis B Surface Antigen Blood (07/29/2024 11:01 AM DRY DRUG WORKER) HepBsAg Nonreactive Nonreactive Blood 07/29/2024 11:0 1 AM DRY DRUG WORKER 07/29/2024 11:32 AM DRY DRUG WORKER Narrative [facility] - 07/29/2024 12:47 PM DRY DRUG WORKER This lab is being obtained as part of a Kidney transplant evaluation, is time sensitive, and should only be drawn during the evaluation visit at [address]. Jossie King MD LAB MICROBIOLOGY - GENERAL ORDERABLES Final Result Performing Organization Address [facility] Co de Phone Number [facility] [place] [address] * Hepatitis C antibody Blood (07/29/2024 11:01 AM DRY DRUG WORKER) Pathologist [facility] Hep C Ab Nonreactive Nonreactive Comment:Antibodies to HCV no t detected. Does NOT exclude the possibility of recent exposure to HCV. Current interpretive data was last revised on 22 Blood 07/29/2024 11:0 1 AM DRY DRUG WORKER 07/29/2024 11:32 AM DRY DRUG WORKER Narrative [facility] - 07/29/2024 12:47 PM DRY DRUG WORKER This lab is being obtained as part of a Kidney transplant evaluation, is time sensitive, and should only be drawn during the evaluation visit at [address] Jossie King MD LAB MICROBIOLOGY - GENERAL ORDERABLES Final Result Performing Organization Address [facility] Co de Phone Number [facility] [place] [address] * (ABNORMAL) Iron profile w/ IBC (07/29/2024 11:01 AM DRY DRUG WORKER) [facility] Iron 62 50 - 150 mcg/dL TIBC 208(L) 250 - 400 mcg/dL [facility] Transferrin saturation 30 20 - 50 % [facility] Blood 07/29/2024 11:0 1 AM DRY DRUG WORKER 07/29/2024 11:33 AM DRY DRUG WORKER Narrative [facility] - 07/29/2024 12:10 PM DRY DRUG WORKER This lab is being obtained as part of a Kidney transplant evaluation, is time sensitive, and should only be drawn during the evaluation visit at [address] Jossie King MD LAB BLOOD ORDERABL ES Final Result Performing Organization Address [facility] Co de Phone Number [facility] [place] [address] * (ABNORMAL) Lipid panel (07/29/2024 11:01 AM DRY DRUG WORKER) [facility] Cholesterol 114 30 - 199 mg/dL [...] on 2018. Triglycerides 66 <=149 mg/dL [facility] Comment: Interpretive Data Ages < or [...] revised on 2018. HDL 29(L) >=40 mg/dL [facility] Comment: Interpretive Data Ages [...] on 2018. LDL, calculated 71 <=129 mg/dL [facility] Comment: Interpretive Data Ages [...] revised on 2024. Non-HDL Cholesterol 85 mg/dL [facility] Comment: Interpretive Data Ages [...] last revised on 2018. Chol/HDL ratio 4 [facility] Blood 07/29/2024 11:0 1 AM DRY DRUG WORKER 07/29/2024 11:33 AM DRY DRUG WORKER Narrative [facility] - 07/29/2024 12:10 PM DRY DRUG WORKER This lab is being obtained as part of a Kidney transplant evaluation, is time sensitive, and should only be drawn during the evaluation visit at [address] Jossie King MD LAB BLOOD ORDERABL ES Final Result Performing Organization Address [facility] de Phone Number [facility] Department [place] [address] * (ABNORMAL) PTH (07/29/2024 11:01 AM DRY DRUG WORKER) [facility] PTH 444(H) 15 - 65 pg/mL Blood 07/29/2024 11:0 1 AM DRY DRUG WORKER 07/29/2024 11:34 AM DRY DRUG WORKER Narrative [facility] - 07/29/2024 12:02 PM DRY DRUG WORKER This lab is being obtained as part of a Kidney transplant evaluation, is time sensitive, and should only be drawn during the evaluation visit at [address] Jossie King MD LAB BLOOD ORDERABL ES Final Result Performing Organization Address [facility] de Phone Number [facility] [place] [address] * (ABNORMAL) aPTT (07/29/2024 11:01 AM DRY DRUG WORKER) [facility] aPTT 61(H) 28 - 38 sec Comment: Interpretive Data Heparin therapeutic range: 66.0 - 100.0 seconds. Range based on correlation with therapeutic heparin activity range of 0.3 - 0.7 Units/mL. Current interpretive data was last revised on 2023. Blood 07/29/2024 11:0 1 AM DRY DRUG WORKER 07/29/2024 11:32 AM DRY DRUG WORKER Narrative [facility] - 07/29/2024 11:42 AM DRY DRUG WORKER This lab is being obtained as part of a Kidney transplant evaluation, is time sensitive, and should only be drawn during the evaluation visit at [address] Lab[address] Jossie King MD LAB BLOOD ORDERABL ES Final Result Performing Organization Address [facility] de Phone Number [facility] [place] [address] * (ABNORMAL) Phosphorus (07/29/2024 11:01 AM DRY DRUG WORKER) [facility] Phosphorus, pl 5.1(H) 2.3 - 4.5 mg/dL Blood 07/29/2024 11:0 1 AM DRY DRUG WORKER 07/29/2024 11:33 AM DRY DRUG WORKER Narrative [facility] 07/29/2024 12:10 PM DRY DRUG WORKER This lab is being obtained as part of a Kidney transplant evaluation, is time sensitive, and should only be drawn during the evaluation visit at [address] Lab[address] Jossie King MD LAB BLOOD ORDERABL ES Final Result Performing Organization Address [facility] Co de Phone Number [facility] [place] [address] * Protein, urine, random (07/29/2024 11:01 AM DRY DRUG WORKER) [facility] Protein, ur, quant 121.2 mg/dL Comment: Interpretive Data No reference range established. Current interpretive data was last revised 2019. Urine 07/29/2024 11:0 1 AM DRY DRUG WORKER 07/29/2024 11:32 AM DRY DRUG WORKER Narrative [facility] - 07/29/2024 12:18 PM DRY DRUG WORKER This lab is being obtained as part of a Kidney transplant evaluation, is time sensitive, and should only be drawn during the evaluation visit at [address] Lab[address] Jossie King MD LAB URINE ORDERABL ES Final Result Performing Organization Address [facility] de Phone Number [facility] Department [place] [address] * (ABNORMAL) Protime-INR (07/29/2024 11:01 AM DRY DRUG WORKER) PT 50.6(H) 9.7 - 13.0 sec INR 4.54(H) 0.90 - 1.20 [facility] Comment: Interpretive data Oral anticoagulant therapeutic ranges: Venous thromboembolism prophylaxis or treatment: 2.0-3.0 CARDIOLOGY Standard range: 2.0-3.0 High-intensity range: 2.5-3.5 Refer to indication-specific guidelines for appropriate target ranges for prosthetic heart valve replacement. Current interpretive data was last revised on 2019. Blood 07/29/2024 11:0 1 AM DRY DRUG WORKER 07/29/2024 11:32 AM DRY DRUG WORKER Narrative [facility] - 07/29/2024 11:42 AM DRY DRUG WORKER This lab is being obtained as part of a Kidney transplant evaluation, is time sensitive, and should only be drawn during the evaluation visit at [address] Lab[address] Jossie King MD LAB BLOOD ORDERABL ES Final Result Performing Organization Address [facility] Co de Phone Number [facility] Department [place] [address] * RPR Blood (07/29/2024 11:01 AM DRY DRUG WORKER) RPR Nonreactive Nonreactive Blood 07/29/2024 11:0 1 AM DRY DRUG WORKER 07/29/2024 11:33 AM DRY DRUG WORKER Narrative [facility] 07/29/2024 12:34 PM DRY DRUG WORKER This lab is being obtained as part of a Kidney transplant evaluation, is time sensitive, and should only be drawn during the evaluation visit at [address]. Jossie King MD LAB MICROBIOLOGY - GENERAL ORDERABLES Final Result Performing Organization Address [facility] de Phone Number [facility] [place] [address] * Varicella Zoster IgG antibody Blood (07/29/2024 11:01 AM DRY DRUG WORKER) Pathologist [facility] VZV IgG Reactive Reactive Comment:Reactive: Results diego ggest response to immunization or prior exposure to the virus. Blood 07/29/2024 11:0 1 AM DRY DRUG WORKER 07/29/2024 11:33 AM DRY DRUG WORKER Narrative [facility] 07/29/2024 1:45 PM DRY DRUG WORKER This lab is being obtained as part of a Kidney transplant evaluation, is time sensitive, and should only be drawn during the evaluation visit at [address] Result [facility] Jossie King MD LAB MICROBIOLOGY - GENERAL ORDERABLES Final Result Performing Organization Address [facility] de Phone Number [facility] [place] [address] * (ABNORMAL) Uric acid (07/29/2024 11:01 AM DRY DRUG WORKER) Pathologist [facility] Uric acid 2.0(L) 3.0 - 8.0 mg/dL Blood 07/29/2024 11:0 1 AM DRY DRUG WORKER 07/29/2024 11:33 AM DRY DRUG WORKER Narrative [facility] 07/29/2024 12:10 PM DRY DRUG WORKER This lab is being obtained as part of a Kidney transplant evaluation, is time sensitive, and should only be drawn during the evaluation visit at [address] Jossie King MD LAB BLOOD ORDERABL ES Final Result Performing Organization Address [facility] de Phone Number [facility] [place] [address] * PSA screen (07/29/2024 11:01 AM DRY DRUG WORKER) PSA-Total 0.55 <=3.90 ng/mL Comment: Interpretive Data ?AGE ? SEX ?REFERENCE INTERVAL 0 minutes-150 years ?Female ?None 0 minutes-49 years ? Male ?None ? 50-59 years ? Male ?0-3.90 ? 60-69 years ? Male ?0-5.40 ? 70-79 years ? Male ?0-6.20 ? 80-150 years ?Male ?0-6.20 [employer] PSA Total assay procedure was used. Results from different manufacturers or methods may not be comparable. Serial testing should be performed using the same method. Current interpretive data last revised 21. Blood 07/29/2024 11:0 1 AM DRY DRUG WORKER 07/29/2024 11:33 AM DRY DRUG WORKER Narrative [facility] - 07/29/2024 12:39 PM DRY DRUG WORKER This lab is being obtained as part of a Kidney transplant evaluation, is time sensitive, and should only be drawn during the evaluation visit at [facility] Lab. Jossie King MD LAB BLOOD ORDERABL ES Final Result Performing Organization Address [facility] Co de Phone Number [facility] Billie [facility] [place] [address] * LR HLA Typing (Class I and Class II) (07/29/2024 11:01 AM DRY DRUG WORKER) r-SSO [facility] A First Allele A*03 [facility] [...] 07/30/24 [facility] Blood 07/29/2024 11:0 1 AM DRY DRUG WORKER 08/02/2024 9:03 AM DRY DRUG WORKER Narrative [facility] - 08/02/2024 9:03 AM DRY DRUG WORKER DNA was extracted from whole blood or buccal cell specimens, and relevant genomic regions were amplified by polymerase chain reactions (PCR). HLA typing was performed on PCR amplicons using reverse sequence-specific oligonucleotide (r-SSO) and/or sequence-specific primers (SSP) based techniques. r-SSO and SSP are FDA approved as IVD tests and validated by the [facility] HLA Laboratory. Testing performed at the [facility], [address], 5th floor, [facility], [place], [address]. [facility] # [id number]. Dorothy Meade, Ph.D., Chiropractic Physician, HLA Laboratory Rell Samuels M.D., Ph.D., Manager Technical Training, HLA Laboratory Licha Nieto, Ph.D., [place] Manager Technical Training, [facility] Clinical Laboratories Current methodology comment last revised on 04/25/17. Jossie King MD LAB BLOOD ORDERABL ES Final Result Performing Organization Address City/[facility]/ZIP Co de Phone Number [facility] * Collection Task for HLA Typing 1 (07/29/2024 11:01 AM DRY DRUG WORKER) HLA Class I DNA (ABC) Recipient Received Blood 07/29/2024 11:0 1 AM DRY DRUG WORKER 07/29/2024 11:56 AM DRY DRUG WORKER Jossie King MD LAB BLOOD ORDERABL ES Final Result Performing Organization Address [facility] Co de Phone Number [facility] [place] [address] * Collection Task for HLA Typing 2, Patient (07/29/2024 11:01 AM DRY DRUG WORKER) HLA Class II DNA (DR, DQ, DP) Recipient Received Blood 07/29/2024 11:0 1 AM DRY DRUG WORKER 07/29/2024 11:56 AM DRY DRUG WORKER Jossie King MD LAB BLOOD ORDERABL ES Final Result Performing Organization Address City/[facility] Co de Phone Number [facility] [place] [address] * HLA Antibody Screen - SAB (Class I and Class II) (07/29/2024 11:01 AM DRY DRUG WORKER) Class I Treatment EDTA [facility] Class I [...] DR52 [facility] Blood 07/29/2024 11:0 1 AM DRY DRUG WORKER 08/02/2024 9:46 AM DRY DRUG WORKER Narrative [facility] - 08/02/2024 9:46 AM DRY DRUG WORKER Single-antigen HLA antibody screen is performed on serum samples using a method developed and validated by the [facility] HLA laboratory based on an FDA-approved IVD kit ([employer] Single-Antigen, [employer], [facility] [place]). All patient serum samples are pretreated with EDTA before the screen to prevent complement interference. Additional serum treatments, such as adsorption and DTT treatment, may be performed as indicated. ??Interpretive comments: Low risk: MFI [id number]. Moderate risk: MFI [id number]. Increased risk: MFI >/= 5000. The presence [...] antigens to avoid. Testing performed at the [facility] HLA Laboratory, [facility] [address] [place], 5th floor, [facility], [place], [address]. [facility] # [id number]. Dorothy Meade, Ph.D., Chiropractic Physician, HLA Laboratory Rell Samuels M.D., Ph.D., Manager Technical Training, HLA Laboratory Licha Nieto, Ph.D., CLIA Manager Technical Training, [facility] Clinical Laboratories Current methodology and interpretive comments last revised on 09/15/2022. Jossie King MD LAB BLOOD ORDERABL ES Final Result Performing Organization Address [facility] Co de Phone Number [facility] * Collection Task for HLA Antibody Screen (07/29/2024 11:01 AM DRY DRUG WORKER) HLA Antibody Screen By Single Antigen Received Blood 07/29/2024 11:0 1 AM DRY DRUG WORKER 07/29/2024 11:56 AM DRY DRUG WORKER Jossie King MD LAB BLOOD ORDERABL ES Final Result Performing Organization Address [facility] Co de Phone Number [facility] Department [place] [address] * (ABNORMAL) Urinalysis, microscopic only (07/29/2024 10:53 AM DRY DRUG WORKER) WBC, ur 21-50(A) 0 - 5 /HPF RBC, ur >50(A) 0 - 2 /HPF [facility] Epithelial cells, squamous, ur 1-5 0 - 5 /HPF [facility] Bacteria, ur Trace(A) [facility] Mucous, ur Present(A) [facility] Hyaline casts, ur 1-5 0 - 10 /LPF [facility] Urine 07/29/2024 10:5 3 AM DRY DRUG WORKER 07/29/2024 11:27 AM DRY DRUG WORKER Jossie King MD LAB URINE ORDERABL ES Final Result Performing Organization Address City/[facility]/ZIP Co de Phone Number [facility] Department [place] [address] * (ABNORMAL) Oxalate (oxalic acid) (07/29/2024 10:53 AM DRY DRUG WORKER) Oxalate 12.3(H) <=2.0 mcmol/L [facility] Comment: High value suggestive of Primary Hyperoxaluria. However, if the patient has chronic kidney disease (GFR<30 mL/min/1.73m2), plasma oxalate values up to 30 mcmol/L can be normal. The [facility] Hyperoxaluria Center is available to review case details and answer any questions regarding interpretation ([email or web address] [phone]) ADDITIONAL INFORMATION This test has been modified from the security ambassador's instructions. Its performance characteristics were determined by [facility] in a manner consistent with CLIA requirements. This test has not been cleared or approved by the U.S. Food and Drug Administration. Test Performed by: [facility] Laboratories [address] [address] Loin Trimmer: Jairo Higgins Ph.D.; CLIA# [id number] Blood 07/29/2024 10:5 3 AM DRY DRUG WORKER 07/29/2024 11:37 AM DRY DRUG WORKER us Jossie King MD LAB BLOOD ORDERABL ES Final Result [facility] Department [place] [address] [place] [facility] * (ABNORMAL) Urinalysis reflex to microscopic (07/29/2024 10:53 AM DRY DRUG WORKER) Color, ur Yellow Yellow Clarity, ur Cloudy(A) Clear [facility] Specific gravity, ur 1.022 1.003 - 1.030 [facility] pH, urine 6.0 [facility] Comment: Interpretive Data ? Urine pH is affected by diet, medications, systemic acid-base disturbances, and renal tubular function. ??pH may affect urinary stone formation. ??For example, urine pH below 6.0 may help reduce the tendency for calcium phosphate stones and pH greater than 6.0 may reduce the tendency for uric acid stone formation. Source: [facility] Current Interpretive Data was last revised on 2017 Protein, ur ql 2+(A) Negative [facility] Glucose, ur ql 4+(A) Negative [facility] Ketones, ur Negative Negative [facility] Bilirubin, ur Negative Negative [facility] Blood, ur 3+(A) Negative [facility] Urobilinogen, ur <2.0 <2.0 mg/dL [facility] Nitrite, ur Negative Negative [facility] Leukocyte esterase, ur 2+(A) Negative [facility] UA reflex comment Reflex to microscopic UA will be performed. [facility] Urine 07/29/2024 10:5 3 AM DRY DRUG WORKER 07/29/2024 11:27 AM DRY DRUG WORKER Narrative [facility] - 07/29/2024 11:29 AM DRY DRUG WORKER This lab is being obtained as part of a Kidney transplant evaluation, is time sensitive, and should only be drawn during the evaluation visit at [facility] Lab. us Jossie King MD LAB URINE ORDERABL ES Final Result [facility] [place] [address] documented in this encounter Visit Diagnoses Diagnosis End stage renal disease (CMS/HCC) (HCC) End stage renal disease ESRD (end stage renal disease) (CMS/HCC) (HCC) End stage renal disease documented in this encounter Care Teams Stream Control Officer Relationship Specialty Start Date End Date Aditya Castro MD [address] [facility] DEPT [place] [address] PCP - General 10/17/19 Alondra Lambert, RN [address] [facility] [address] [place] [address] Agricultural Economics Professor 03/06/24 Hamlet Ortega Jr., MD [address] [place] [address] Consulting Physician Cardiovascular Disease 05/10/24 documented as of this encounter
--- OUTSIDE RECORDS SUMMARY | 2024-09-07 23:32 | XMS_ITS ---
Author Organization [facility] Address [address] [place] [address] Care Team Providers Care Vocational Rehabilitation Consultant Name Role Phone Aditya Castro MD Primary Care Provider [phone] Alondra Lambert RN Unavailable [phone] Shannon Brock MD, [place] P. Unavailable Leandro Reyes MD Unavailable [phone] Dialysis Access Sites Type Status Location Placement Date Removal Da te Peritoneal Dialysis Catheter Continuous cycling Active Hemodialysis Cath Double Inactive Right N emiliano (side) - Anterior 06/18/2022 06/25/2022 Hemodialysis Cath Triple Inactive Neck - Anterior 202106/16/2022 Procedures Procedure Name Priority Date/Time Associated Diagnosis Comments HLA SOLID ORGAN TYPING REPORT 08/02/2024 9:04 AM HANDS AND DIAL INSPECTOR SIX MINUTE WALK Routine 07/29/2024 2:46 PM HANDS AND DIAL INSPECTOR End stage renal disease (CMS/HCC) (HCC) CT ABDOMEN PELVIS WO CONTRAST Schedule Routine, Read Routine (OP Routine) 07/29/2024 12:43 PM HANDS AND DIAL INSPECTOR End stage renal disease (CMS/HCC) (HCC) XR ORTHOPANTOGRAM/PANOR EX Schedule Routine, Read Routine (OP Routine) 07/29/2024 11:44 AM HANDS AND DIAL INSPECTOR End stage renal disease (CMS/HCC) (HCC) TYPE AND SCREEN Routine 07/29/2024 11:23 AM HANDS AND DIAL INSPECTOR End stage renal disease (CMS/HCC) (HCC) ECG 12-LEAD Routine 07/29/2024 11:14 AM HANDS AND DIAL INSPECTOR End stage renal disease (CMS/HCC) (HCC) ABO/RH Routine 07/29/2024 11:13 AM HANDS AND DIAL INSPECTOR EGFR Routine 07/29/2024 11:01 AM HANDS AND DIAL INSPECTOR End stage renal disease (CMS/HCC) (HCC) DIFFERENTIAL AUTO Routine 07/29/2024 11: 01 AM HANDS AND DIAL INSPECTOR End stage renal disease (CMS/HCC) (HCC) CBC WITH AUTO DIFFERENTIAL Routine 07/29/2024 11:01 AM HANDS AND DIAL INSPECTOR End stage renal disease (CMS/HCC) (HCC) COMPREHENSIVE METABOLIC PANEL Routine 07/29/2024 11:01 AM HANDS AND DIAL INSPECTOR End stage renal disease (CMS/HCC) (HCC) CREATININE, URINE, RANDOM Routine 07/29/2024 11:01 AM HANDS AND DIAL INSPECTOR End stage renal disease (CMS/HCC) (HCC) FERRITIN Routine 07/29/2024 11:01 AM HANDS AND DIAL INSPECTOR End stage renal disease (CMS/HCC) (HCC) GAMMA GT Routine 07/29/2024 11:01 AM HANDS AND DIAL INSPECTOR End stage renal disease (CMS/HCC) (HCC) HEMOGLOBIN A1C Routine 07/29/2024 11:01 AM HANDS AND DIAL INSPECTOR End stage renal disease (CMS/HCC) (HCC) IRON PROFILE W/ IBC Routine 07/29/2024 1 1:01 AM HANDS AND DIAL INSPECTOR End stage renal disease (CMS/HCC) (HCC) LIPID PANEL Routine 07/29/2024 11:01 AM HANDS AND DIAL INSPECTOR End stage renal disease (CMS/HCC) (HCC) PTH Routine 07/29/2024 11:01 AM HANDS AND DIAL INSPECTOR End stage renal disease (CMS/HCC) (HCC) APTT Routine 07/29/2024 11:01 AM HANDS AND DIAL INSPECTOR End stage renal disease (CMS/HCC) (HCC) PHOSPHORUS Routine 07/29/2024 11:01 AM HANDS AND DIAL INSPECTOR End stage renal disease (CMS/HCC) (HCC) PROTEIN, URINE, RANDOM Routine 07/29/2024 11:01 AM HANDS AND DIAL INSPECTOR End stage renal disease (CMS/HCC) (HCC) PROTIME-INR Routine 07/29/2024 11:01 AM HANDS AND DIAL INSPECTOR End stage renal disease (CMS/HCC) (HCC) URIC ACID Routine 07/29/2024 11:01 AM HANDS AND DIAL INSPECTOR End stage renal disease (CMS/HCC) (HCC) PSA SCREEN Routine 07/29/2024 11:01 AM HANDS AND DIAL INSPECTOR End stage renal disease (CMS/HCC) (HCC) LR HLA TYPING (CLASS I AND CLASS II) Routine 07/29/2024 11:01 AM HANDS AND DIAL INSPECTOR End stage renal disease (CMS/HCC) (HCC) HLA CLASS I DNA (ABC) RECIPIENT Routine 07/29/2024 11:01 AM HANDS AND DIAL INSPECTOR End stage renal disease (CMS/HCC) (HCC) HLA CLASS II DNA (DR, DQ, DP) RECIPIENT Routine 07/29/2024 11:01 AM HANDS AND DIAL INSPECTOR End stage renal disease (CMS/HCC) (HCC) HLA ANTIBODY SCREEN - SAB (CLASS I AND CLASS II) Routine 07/29/2024 11:01 AM HANDS AND DIAL INSPECTOR End stage renal disease (CMS/HCC) (HCC) HLA ANTIBODY SCREEN BY SINGLE ANTIGEN Routine 07/29/2024 11:01 AM HANDS AND DIAL INSPECTOR End stage renal disease (CMS/HCC) (HCC) CMV, IGG Routine 07/29/2024 11:01 AM HANDS AND DIAL INSPECTOR End stage renal disease (CMS/HCC) (HCC) MADIHA-MORRIS VIRUS VCA ANTIBODY PANEL Routine 07/29/2024 11:01 AM HANDS AND DIAL INSPECTOR End stage renal disease (CMS/HCC) (HCC) HIV 1/2 ANTIBODY PLUS P24 ANTIGEN Routine 07/29/2024 11:01 AM HANDS AND DIAL INSPECTOR End stage renal disease (CMS/HCC) (HCC) HSV 1 ANTIBODY, IGG Routine 07/29/2024 1 1:01 AM HANDS AND DIAL INSPECTOR End stage renal disease (CMS/HCC) (HCC) HSV 2 ANTIBODY, IGG Routine 07/29/2024 1 1:01 AM HANDS AND DIAL INSPECTOR End stage renal disease (CMS/HCC) (HCC) HEPATITIS B CORE ANTIBODY, TOTAL Routine 07/29/2024 11:01 AM HANDS AND DIAL INSPECTOR End stage renal disease (CMS/HCC) (HCC) HEPATITIS B SURFACE ANTIBODY (IMMUNE STATUS) Routine 07/29/2024 11:01 AM HANDS AND DIAL INSPECTOR End stage renal disease (CMS/HCC) (HCC) HEPATITIS B SURFACE ANTIGEN Routine 07/29/2024 11:01 AM HANDS AND DIAL INSPECTOR End stage renal disease (CMS/HCC) (HCC) HEPATITIS C ANTIBODY Routine 07/29/2024 11:01 AM HANDS AND DIAL INSPECTOR End stage renal disease (CMS/HCC) (HCC) RPR Routine 07/29/2024 11:01 AM HANDS AND DIAL INSPECTOR End stage renal disease (CMS/HCC) (HCC) VARICELLA ZOSTER ANTIBODY, IGG Routine 07/29/2024 11:01 AM HANDS AND DIAL INSPECTOR End stage renal disease (CMS/HCC) (HCC) URINALYSIS, MICROSCOPIC ONLY Routine 07/29/2024 10:53 AM HANDS AND DIAL INSPECTOR End stage renal disease (CMS/HCC) (HCC) OXALATE Routine 07/29/2024 10:53 AM HANDS AND DIAL INSPECTOR ESRD (end stage renal disease) ([facility]) ([facility]) URINALYSIS AND REFLEX TO MICROSCOPIC Routine 07/29/2024 10:53 AM HANDS AND DIAL INSPECTOR End stage renal disease ([facility]) ([facility]) CARDIOLOGY DOCUMENT SCAN Routine 06/07/2024 11:10 AM CDT TSH Routine 10/27/2023 2:30 AM HANDS AND DIAL INSPECTOR from Last 3 Months or Most Recently [...] PUMP: Continue Omnipod 5 insulin pump with [employer] G6 CGM at home settings: TIME BASAL [...] 1 tablet (25 mcg total) by mouth visitor services representative before breakfast 30 tablet 1 11/04/19 24 [...] mg SL tablet 12/28/19 18 Active peg [id number] [id number] (ARTIFICAL TEARS) 1-0.2-0.2 % ophthalmic solution 1 drop 4 (four) times a day 07/07/20 Active potassium chloride ER 20 mEq CR tablet Active Active Problems Problem Noted Date Diagnosed Date End stage renal disease ([facility]) 07/29/2024 Nonrheumatic aortic valve stenosis 11/22/2023 Status post aortic valve replacement 11/22/2023 Status post coronary artery bypass grafting 10/2023 CAD in ramona artery 10/13/2023 Anemia 06/22/2022 Assessment & Plan (06/29/2022 10:12 AM HANDS AND DIAL INSPECTOR): Stable, likely 2/2 anemia from ESRD, no [...] trend Hb. ESRD (end stage renal disease) ([facility]) 022 Assessment & Plan (06/29/2022 10:12 AM HANDS AND DIAL INSPECTOR): - Renal consulted, s/p CRRT in the ICU now back on PD. Tolerated well and nephrology following - Trialysis catheter removed - Continue vitamins for renal bone mineral disease. Assessment & Plan (06/28/2022 3:29 PM HANDS AND DIAL INSPECTOR): - Renal consulted, s/p CRRT in the [...] 06/22/2022 Assessment & Plan (06/29/2022 10:12 AM HANDS AND DIAL INSPECTOR): C/b cardiogenic shock requiring impella in the setting of cath and AHRF 2/2 pulmonary edema, now resolved. TTE demonstrating recovered EF 65% with grade I diastolic dysfunction. - metop as above - continue low dose losartan 12.5mg daily, ok per nephro. Tolerating well - volume management per PD Assessment & Plan (06/28/2022 3:29 PM HANDS AND DIAL INSPECTOR): C/b cardiogenic shock requiring impella in the [...] tartrate, start GDMT per cardiology. Atrial fibrillation ([facility]/HCC) 06/22/2022 Assessment & Plan (06/29/2022 10:12 AM HANDS AND DIAL INSPECTOR): Converted to NSR overnight on 06/24. CHADsVASc of 4 not on anticoagulation prior to admission. - cardiology consulted - recommended ongoing rate control - holding off on a/c with high risk for bleeding while on DAPT - reduced metop to 25mg BID in the setting of hypotension, HR 70s NSR Assessment & Plan (06/28/2022 3:30 PM HANDS AND DIAL INSPECTOR): Converted to NSR overnight on 06/24. CHADsVASc [...] (non-ST elevated myocardial infarction) ( [facility]) 06/22/2022 Assessment & Plan (06/29/2022 10:11 AM HANDS AND DIAL INSPECTOR): With recurrent chest pain post-cath. He has [...] today Assessment & Plan (06/28/2022 3:30 PM HANDS AND DIAL INSPECTOR): With recurrent chest pain post-cath. He has [...] PCI to LCx and OM bifurcation with AMRIELLA. -Continue DAPT with aspirin, Plavix and atorvastatin. Cardiogenic shock 06/22/2022 Assessment & Plan (06/29/2022 10:11 AM HANDS AND DIAL INSPECTOR): Secondary to NSTEMI, s/p Impella since removed on 06/10. Resolved. Assessment & Plan (06/23/2022 4:55 PM CDT): Secondary to NSTEMI, s/p Impella since removed on 06/10. Resolved. Assessment & Plan (06/22/2022 8:22 PM CDT): -Secondary to NSTEMI, s/p Impella since removed on 06/10. 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 ([facility]) 05/23/2017 History of coronary artery stent placement 05/23 Macular ischemia 03/17/2017 Combined forms of age-related cataract 7 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 03/17/2017 Type 2 diabetes mellitus treated with insulin (C CA/HCC) 03/25/2015 Overview (11/25/2016): Insulin treated Type II diabetes mellitus Chronic kidney disease, stage III (moderate) 12/2014 Overview (11/25/2016): Chronic kidney disease, stage 3 Benign essential hypertension 03/25/2015 Overview (11/25/2016): Benign essential HTN Hyperlipidemia 03/25/2015 Overview (11/25/2016): Hyperlipidemia Pain of finger 11/24/2014 Hypersomnia 11/22/2013 Chronic kidney disease 11/22/2013 Hypertension 01/18/2013 Type 1 diabetes mellitus 01/18/2013 Assessment & Plan (06/29/2022 10:12 AM HANDS AND DIAL INSPECTOR): A1c well controlled on admission. He uses [...] session Assessment & Plan (06/28/2022 3:28 PM HANDS AND DIAL INSPECTOR): A1c well controlled on admission. He uses [...] the past 12 months has th e [employer], oil, or water [address] threatened to shut off services in your [...] How often do you attend yarsanism or spiritism serv ices? Never 08/01/2024 Do you belong [...] in a fdc (including now)? No 10/16/2023 Housing Stability Vital Sign Answer Rubens e Recorded In the last 12 months, was t here a time when you were not able to pay the mortgage or rent on time? No 08/01/2024 In the past 12 months, how m any times have you moved where you were living? 1 08/01/2024 At any time in the past 12 m [facility], were you homeless or living in a fdc (including now)? No 08/01/2024 Personal Safety Answer Date Recorded Have you ever been in or are you currently in a harmful physical or emotional relationship or is someone making you feel afraid or unsafe? 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 Male 3:42 AM HANDS AND DIAL INSPECTOR Gender Identity Not on file Sexual Orientation Not on file Last Filed Vital Signs Vital Sign Reading Time Taken Comments Blood Pressure 122/75 07/29/2024 1:00 PM HANDS AND DIAL INSPECTOR Pulse 116 07/29/2024 1:00 PM HANDS AND DIAL INSPECTOR Temperature 36.8 ??C (98.2 ??F) 07/29/2024 1:00 PM CS T Respiratory Rate 16 12/01/2023 11:1 3 AM CDT Oxygen Saturation 96% 12/01/2023 11: 13 AM CDT Inhaled Oxygen Concentration - - Weight 121.2 kg (267 lb 1.6 oz) 07/29/2024 1:00 PM HANDS AND DIAL INSPECTOR Height 177.8 cm (5' 10 ) 07/29/2024 1:00 PM HANDS AND DIAL INSPECTOR Body Mass Index 38.32 07/29/2024 1:00 PM HANDS AND DIAL INSPECTOR Results * HLA Solid Organ Typing Report (08/02/2024 9:04 AM HANDS AND DIAL INSPECTOR) us Jossie King MD LAB GENETIC TESTIN G Final Result * Six Minute Walk - (07/29/2024 2:46 PM HANDS AND DIAL INSPECTOR) Anatomical Region Laterality Modality PFT Narrative 07/29/2024 3:52 PM HANDS AND DIAL INSPECTOR Table formatting from the original result was not included. Davey Pickard V., ACUTE CARE PHYSICAL THERAPIST on 07/29/2024 ??2:45 PM Table formatting from the original note was not included. 6 MINUTE WALK RESULTS Name: Juvenal Daigle Jr : 1970 DOS: 07/29/2024 Diagnosis: ESRD/KTE ACUTE CARE PHYSICAL THERAPIST performed walk: Carmenza Pickard Rest: 1 min [...] Abdomen Pelvis WO Contrast (07/29/2024 12:43 PM HANDS AND DIAL INSPECTOR) Anatomical Region Laterality Modality Body N/A Computed Tomogra phy 07/29/2024 1:04 PM HANDS AND DIAL INSPECTOR Impressions 07/29/2024 1:04 PM HANDS AND DIAL INSPECTOR 1. ??Moderate discontinuous atherosclerotic calcifications involve the [...] Teresa Rivera M.D. Narrative 07/29/2024 1:04 PM HANDS AND DIAL INSPECTOR EXAMINATION: ??Computed tomography of the abdomen and [...] is concern for panniculitis. Electronically signed by: Marai Teresa Rivera M.D. 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 Electronically signed by: Julio Pinedo M.D. Narrative 07/29/2024 12:59 PM HANDS AND DIAL INSPECTOR EXAMINATION: XR ORTHOPANTOGRAM/PANOREX HISTORY: Kidney Transplant Evaluation [...] * Type and screen (07/29/2024 11:23 AM HANDS AND DIAL INSPECTOR) Maribel, indirect Negative ABO Rh A Positive [facility] Blood 07/29/2024 11:2 3 AM HANDS AND DIAL INSPECTOR 07/29/2024 11:43 AM HANDS AND DIAL INSPECTOR Narrative [facility] - 07/29/2024 12:45 PM HANDS AND DIAL INSPECTOR Please draw the ABO and the Type [...] drawn during the evaluation visit at [facility] 3C Lab. Has the patient had Daratumumab or Isatuximab in the past 6 months?->Unknown Jossie King MD LAB BLOOD BANK ERNESTO T ORDERABLES Final Result [facility] Department [place] [address] * ECG 12 lead (07/29/2024 11:14 AM HANDS AND DIAL INSPECTOR) Ventricular Rate EKG/Min 117 BPM [facility] Atrial Rate 117 BPM [facility] AL-Interval (MSEC) 144 ms [facility] QRS-Interval (MSEC) 126 ms [facility] QT-Interval (MSEC) 366 ms [facility] QTc 510 ms [facility] R [place] -40 degrees [facility] T [place] 147 degrees [facility] Diagnosis Poor data quality, interpretation may be [...] Inferior leads Confirmed by FERDINAND SAL M.D ([id number]) on 07/29/2024 3:38:41 PM [facility] 07/29/2024 11:1 4 AM HANDS AND DIAL INSPECTOR 07/29/2024 3:38 PM HANDS AND DIAL INSPECTOR Jossie King MD ECG ORDERABLES Fi nal Result [facility] * ABO/Rh (07/29/2024 11:13 AM HANDS AND DIAL INSPECTOR) Pathologist [facility] ABO Rh A Positive Blood 07/29/2024 11:1 3 AM HANDS AND DIAL INSPECTOR 07/29/2024 2:45 PM HANDS AND DIAL INSPECTOR Jossie King MD LAB BLOOD BANK ERNESTO T ORDERABLES Final Result [facility] Department [place] [address] * LR HLA Typing (Class I and Class II) (07/29/2024 11:01 AM HANDS AND DIAL INSPECTOR) r-SSO [facility] [place] A*03 [facility] [...] 07/30/24 [facility] Blood 07/29/2024 11:0 1 AM HANDS AND DIAL INSPECTOR 08/02/2024 9:03 AM HANDS AND DIAL INSPECTOR Narrative [facility] - 08/02/2024 9:03 AM [facility] DNA was extracted from whole blood or buccal cell specimens, and relevant genomic regions were amplified by polymerase chain reactions (PCR). HLA typing was performed on PCR amplicons using reverse sequence-specific oligonucleotide (r-SSO) and/or sequence-specific primers (SSP) based techniques. r-SSO and SSP are FDA approved as IVD tests and validated by the [facility] HLA Laboratory. Testing performed at the [facility] HLA [facility], [address] [place] [address], 5th floor, [place], [address]. IA # [id number]. Dorothy Meade, Ph.D., Heel Sprayer First, HLA Laboratory Rell Samuels M.D., Ph.D., Printed Circuit Board Assembly Repairer, HLA Laboratory Licha Nieto, Ph.D., KIARRA [employer]ed [employer] Board Assembly Repairer, [facility] Clinical Laboratories Current methodology comment last revised on 04/25/17. Jossie King MD LAB BLOOD ORDERABL ES Final Result Performing Organization Address [facility] Co de Phone Number [facility] * Collection Task for HLA Typing 1 (07/29/2024 11:01 AM HANDS AND DIAL INSPECTOR) HLA Class I DNA (ABC) Recipient Received Blood 07/29/2024 11:0 1 AM HANDS AND DIAL INSPECTOR 07/29/2024 11:56 AM HANDS AND DIAL INSPECTOR Jossie King MD LAB BLOOD ORDERABL ES Final Result Performing Organization Address [facility] Co de Phone Number [facility] Department [place] [address] * Collection Task for HLA Antibody Screen (07/29/2024 11:01 AM HANDS AND DIAL INSPECTOR) Pathologist [facility] HLA Antibody Screen By Single Antigen Received Blood 07/29/2024 11:0 1 AM HANDS AND DIAL INSPECTOR 07/29/2024 11:56 AM HANDS AND DIAL INSPECTOR Jossie King MD LAB BLOOD ORDERABL ES Final Result Performing Organization Address [facility] de Phone Number [facility] [place] [address] * Collection Task for HLA Typing 2, Patient (07/29/2024 11:01 AM HANDS AND DIAL INSPECTOR) HLA Class II DNA (DR, DQ, DP) Recipient Received Blood 07/29/2024 11:0 1 AM HANDS AND DIAL INSPECTOR 07/29/2024 11:56 AM HANDS AND DIAL INSPECTOR Jossie King MD LAB BLOOD ORDERABL ES Final Result Performing Organization Address [facility]/ZIP Co de Phone Number ALESSANDRA CARRION [facility] Department [place] [address] * (ABNORMAL) eGFR (07/29/2024 11:01 AM HANDS AND DIAL INSPECTOR) [facility] eGFR 7(L) >=60 mL/min/1. 73 m2 Comment: [...] reviewed 2021. Blood 07/29/2024 11:0 1 AM HANDS AND DIAL INSPECTOR 07/29/2024 11:33 AM HANDS AND DIAL INSPECTOR us Jossie King MD LAB BLOOD ORDERABL ES Final Result Performing Organization Address City/[facility] Co de Phone Number ALESSANDRA CARRION [facility] Department [place] [address] * Differential, auto (07/29/2024 11:01 AM HANDS AND DIAL INSPECTOR) Neutrophil abs 3.1 1.5 - 6.5 K/cumm Imm gran abs 0.0 0.0 - 0.1 K/cumm [facility] Lymphocyte abs 1.1 0.8 - 3.3 K/cumm [facility] Monocyte abs 0.7 0.2 - 0.8 K/cumm [facility] Eosinophil abs 0.2 0.0 - 0.5 K/cumm [facility] Basophil abs 0.0 0.0 - 0.1 K/cumm [facility] Neutrophil pct 60.3 % [facility] Comment: Interpretive Data Percent cell count reference ranges are not reported, since discordance with absolute values may lead to misinterpretation of CBC data. Current Interpretive Data was last revised on 2017. Imm gran pct 0.6 % [facility] Comment: Interpretive Data Percent cell count reference ranges are not reported, since discordance with absolute values may lead to misinterpretation of CBC data. Current Interpretive Data was last revised on 2017. Lymphocyte pct 21.4 % [facility] Comment: Interpretive Data Percent cell count reference ranges are not reported, since discordance with absolute values may lead to misinterpretation of CBC data. Current Interpretive Data was last revised on 2017. Monocyte pct 13.7 % [facility] Comment: Interpretive Data Percent cell count reference ranges are not reported, since discordance with absolute values may lead to misinterpretation of CBC data. Current Interpretive Data was last revised on 2017. Eosinophil pct 3.2 % [facility] Comment: Interpretive Data Percent cell count reference ranges are not reported, since discordance with absolute values may lead to misinterpretation of CBC data. Current Interpretive Data was last revised on 2017. Basophil pct 0.8 % [facility] Comment: Interpretive Data Percent cell count reference ranges are not reported, since discordance with absolute values may lead to misinterpretation of CBC data. Current Interpretive Data was last revised on 2017. Blood 07/29/2024 11:0 1 AM HANDS AND DIAL INSPECTOR 07/29/2024 11:34 AM HANDS AND DIAL INSPECTOR Jossie King MD LAB BLOOD ORDERABL ES Final Result Performing Organization Address [facility] de Phone Number [facility] Department [place] [address] * PSA screen (07/29/2024 11:01 AM HANDS AND DIAL INSPECTOR) PSA-Total 0.55 <=3.90 ng/mL Comment: Interpretive Data [...] revised 21. Blood 07/29/2024 11:0 1 AM HANDS AND DIAL INSPECTOR 07/29/2024 11:33 AM HANDS AND DIAL INSPECTOR Narrative ALESSANDRA [facility] - 07/29/2024 12:39 PM HANDS AND DIAL INSPECTOR This lab is being obtained as part of a Kidney transplant evaluation, is time sensitive, and should only be drawn during the evaluation visit at [facility] 3C Lab. us Jossie King MD LAB BLOOD ORDERABL ES Final Result Performing Organization Address [facility] Co de Phone Number ALESSANDRA [facility] Department [place] [address] * (ABNORMAL) Iron profile w/ IBC (07/29/2024 11:01 AM HANDS AND DIAL INSPECTOR) [facility] Iron 62 50 - 150 mcg/dL TIBC 208(L) 250 - 400 mcg/dL [facility] Transferrin saturation 30 20 - 50 % [facility] Blood 07/29/2024 11:0 1 AM HANDS AND DIAL INSPECTOR 07/29/2024 11:33 AM HANDS AND DIAL INSPECTOR Narrative [facility] - 07/29/2024 12:10 PM HANDS AND DIAL INSPECTOR This lab is being obtained as part of a Kidney transplant evaluation, is time sensitive, and should only be drawn during the evaluation visit at [address] Lab. Jossie King MD LAB BLOOD ORDERABL ES Final Result [facility] Department [place] [address] * HIV 1/2 Antibody plus p24 Antigen Blood (07/29/2024 11:01 AM HANDS AND DIAL INSPECTOR) [facility] HIV 1/2 ab + p24 ag Nonreactive Nonreactive Comment:Nonreactive for HIV- 1 antigen and HIV-1/HIV-2 antibodies. No laboratory evidence of HIV infection. If acute HIV infection is suspected, consider testing for HIV-1 RNA. Current interpretive data was last revised on 22. Blood 07/29/2024 11:0 1 AM HANDS AND DIAL INSPECTOR 07/29/2024 11:32 AM HANDS AND DIAL INSPECTOR Narrative [facility] - 07/29/2024 12:13 PM HANDS AND DIAL INSPECTOR This lab is being obtained as part of a Kidney transplant evaluation, is time sensitive, and should only be drawn during the evaluation visit at [address] Lab. Jossie King MD LAB MICROBIOLOGY - GENERAL ORDERABLES Final Result [facility] Department [place] [address] * (ABNORMAL) CMV, IgG Blood (07/29/2024 11:01 AM HANDS AND DIAL INSPECTOR) [facility] CMV IgG Positive( A) Negative [...] CMV infection. Blood 07/29/2024 11:0 1 AM HANDS AND DIAL INSPECTOR 07/29/2024 11:33 AM HANDS AND DIAL INSPECTOR Narrative [facility] - 07/29/2024 1:44 PM HANDS AND DIAL INSPECTOR This lab is being obtained as part of a Kidney transplant evaluation, is time sensitive, and should only be drawn during the evaluation visit at [facility] 3C Lab. Jossie King MD LAB MICROBIOLOGY - GENERAL ORDERABLES Final Result [facility] Department [place] [address] * HLA Antibody Screen - SAB (Class I and Class II) (07/29/2024 11:01 AM HANDS AND DIAL INSPECTOR) Class I Treatment EDTA HISTOTRAC Class I [...] DR52 HIST[facility]AC Blood 07/29/2024 11:0 1 AM HANDS AND DIAL INSPECTOR 08/02/2024 9:46 AM HANDS AND DIAL INSPECTOR Narrative [facility] - 08/02/2024 9:46 AM HANDS AND DIAL INSPECTOR Single-antigen HLA antibody screen is performed on serum samples using a method developed and validated by the [facility] HLA laboratory based on an FDA-approved IVD kit (LABScreen Single-Antigen, [employer], [place], [place]). All patient serum samples are pretreated with EDTA before the screen to prevent complement interference. Additional serum treatments, such as adsorption and DTT treatment, may be performed as indicated. ??Interpretive comments: Low risk: MFI [id number]. Moderate risk: MFI [id number]. Increased risk: MFI >/= 5000. The presence [...] antigens to avoid. Testing performed at the [facility] HLA Laboratory, [address] [place] [address], 5th floor, [place], [address]. IA # [id number]. Dorothy Meade, Ph.D., Heel Sprayer [employer], HLA Laboratory Rell Samuels M.D., Ph.D., [employer]ed Circuit Board Assembly Repairer, HLA Laboratory Licha Nieto, Ph.D., CLIA [employer] Board Assembly Repairer, [facility] Clinical Laboratories Current methodology and interpretive comments last revised on 09/15/2022. us Jossie King MD LAB BLOOD ORDERABL ES Final Result [facility] * (ABNORMAL) CBC with auto differential (07/29/2024 11:01 AM HANDS AND DIAL INSPECTOR) [facility] WBC 5.1 3.8 - 9.9 K/cumm Hgb 11.5(L) 13.0 - 17.5 g/dL [facility] Hct 34.4(L) 38.9 - 50.3 % [facility] Plt 208 150 - 400 K/cumm [facility] MPV 10.8 9.1 - 12.3 fL [facility] RBC 3.76(L) 4.30 - 5.80 M/cumm [facility] MCV 91.5 81.3 - 96.4 fL [facility] MCH 30.6 27.1 - 33.3 pg [facility] MCHC 33.4 32.3 - 35.7 g/dL [facility] RDW CV 14.3 11.1 - 14.9 % [facility] RDW SD 47.9 35.7 - 48.1 fL [facility] NRBC abs 0.00 0.00 - 0.01 K/cumm [facility] Blood 07/29/2024 11:0 1 AM HANDS AND DIAL INSPECTOR 07/29/2024 11:34 AM HANDS AND DIAL INSPECTOR Narrative [facility] - 07/29/2024 11:45 AM HANDS AND DIAL INSPECTOR This lab is being obtained as part of a Kidney transplant evaluation, is time sensitive, and should only be drawn during the evaluation visit at [facility] 3CAM Lab. us Jossie King MD LAB BLOOD ORDERABL ES Final Result [facility] Department [place] [address] * Hepatitis C antibody Blood (07/29/2024 11:01 AM HANDS AND DIAL INSPECTOR) [facility] Hep C Ab Nonreactive Nonreactive Comment:Antibodies to HCV no t detected. Does NOT exclude the possibility of recent exposure to HCV. Current interpretive data was last revised on 22 Blood 07/29/2024 11:0 1 AM HANDS AND DIAL INSPECTOR 07/29/2024 11:32 AM HANDS AND DIAL INSPECTOR Narrative [facility] - 07/29/2024 12:47 PM HANDS AND DIAL INSPECTOR This lab is being obtained as part of a Kidney transplant evaluation, is time sensitive, and should only be drawn during the evaluation visit at [address] Jossie King MD LAB MICROBIOLOGY - GENERAL ORDERABLES Final Result Performing Organization Address [facility] Co de Phone Number [facility] [place] [address] * (ABNORMAL) Madiha-Morris virus (EBV) antibody panel Blood (07/29/2024 11:01 AM HANDS AND DIAL INSPECTOR) [facility] EBV nuclear Ab Positive(A) Negative Comment:Indicates the presen ce of detectable IgG antibody to EBV Nuclear Antigen. EBV VCA IgG Positive(A) Negative [facility] Comment:Indicates the presen ce of antibody; 90% of the adult population will have been infected with EBV sometime in the past. EBV VCA IgM Negative Negative [facility] Comment:No detectable IgM an tibody to EBV-VCA. A negative result indicates no current infection with EBV. If clinical suspicion of acute EBV infection is present, testing should be repeated after one week. EBV interp Past Infection [facility] Blood 07/29/2024 11:0 1 AM HANDS AND DIAL INSPECTOR 07/29/2024 11:33 AM HANDS AND DIAL INSPECTOR Narrative [facility] - 07/29/2024 1:43 PM HANDS AND DIAL INSPECTOR This lab is being obtained as part of a Kidney transplant evaluation, is time sensitive, and should only be drawn during the evaluation visit at [address] Jossie King MD LAB MICROBIOLOGY - GENERAL ORDERABLES Final Result Performing Organization Address [facility] Co de Phone Number [facility] [place] [address] * Hepatitis B core antibody, total Blood (07/29/2024 11:01 AM HANDS AND DIAL INSPECTOR) [facility] Hep B core IgG/IgM Nonreactive Nonreactive Blood 07/29/2024 11:0 1 AM HANDS AND DIAL INSPECTOR 07/29/2024 11:32 AM HANDS AND DIAL INSPECTOR Narrative [facility] - 07/29/2024 12:47 PM HANDS AND DIAL INSPECTOR This lab is being obtained as part of a Kidney transplant evaluation, is time sensitive, and should only be drawn during the evaluation visit at [address] Jossie King MD LAB MICROBIOLOGY - GENERAL ORDERABLES Final Result Performing Organization Address [facility] de Phone Number [facility] [place] [address] * Protein, urine, random (07/29/2024 11:01 AM HANDS AND DIAL INSPECTOR) Protein, ur, quant 121.2 mg/dL Comment: Interpretive Data No reference range established. Current interpretive data was last revised 2019. Urine 07/29/2024 11:0 1 AM HANDS AND DIAL INSPECTOR 07/29/2024 11:32 AM HANDS AND DIAL INSPECTOR Narrative [facility] 07/29/2024 12:18 PM HANDS AND DIAL INSPECTOR This lab is being obtained as part of a Kidney transplant evaluation, is time sensitive, and should only be drawn during the evaluation visit at [address] Jossie King MD LAB URINE ORDERABL ES Final Result Performing Organization Address [facility] [place] [address] * Creatinine, urine, random (07/29/2024 11:01 AM HANDS AND DIAL INSPECTOR) Creatinine Ur 167.1 mg/dL Comment: Interpretive Data No reference range established. Current interpretive data was last revised 2019. Urine 07/29/2024 11:0 1 AM HANDS AND DIAL INSPECTOR 07/29/2024 11:32 AM HANDS AND DIAL INSPECTOR Narrative [facility] 07/29/2024 12:18 PM HANDS AND DIAL INSPECTOR This lab is being obtained as part of a Kidney transplant evaluation, is time sensitive, and should only be drawn during the evaluation visit at [facility] Lab. Jossie King MD LAB URINE ORDERABL ES Final Result Performing Organization Address City/[facility]/ZIP Co de Phone Number [facility] [place] [address] * HSV 2 IgG Antibody Blood (07/29/2024 11:01 AM HANDS AND DIAL INSPECTOR) HSV 2 IgG Nonreactive Nonreactive Comment: Interpretive Data 1. Nonreactive: No detectable IgG antibody to HSV-2. 2. Equivocal: Presence or absence of detectable antibodies to HSV-2 cannot be determined and the test should be repeated. 3. Reactive: Indicates presence of detectable IgG antibody to HSV-2. Current interpretive data was last revised on 2022. Blood 07/29/2024 11:0 1 AM HANDS AND DIAL INSPECTOR 07/29/2024 11:33 AM HANDS AND DIAL INSPECTOR Narrative [facility] - 07/29/2024 1:44 PM HANDS AND DIAL INSPECTOR This lab is being obtained as part of a Kidney transplant evaluation, is time sensitive, and should only be drawn during the evaluation visit at [address] Lab. Jossie King MD LAB MICROBIOLOGY - GENERAL ORDERABLES Final Result Performing Organization Address [facility] Co de Phone Number [facility] Department [place] [address] * (ABNORMAL) HSV 1 IgG Antibody Blood (07/29/2024 11:01 AM HANDS AND DIAL INSPECTOR) Pathologist [facility] HSV 1 IgG Reactive( A) Nonreactive Comment: Interpretive Data 1. Nonreactive: No detectable IgG antibody to HSV-1. 2. Equivocal: Presence or absence of detectable antibodies to HSV-1 cannot be determined and the test should be repeated. 3. Reactive: Indicates presence of detectable IgG antibody to HSV-1. Current interpretive data was last revised on 2016. Blood 07/29/2024 11:0 1 AM HANDS AND DIAL INSPECTOR 07/29/2024 11:33 AM HANDS AND DIAL INSPECTOR Narrative [facility] - 07/29/2024 1:44 PM HANDS AND DIAL INSPECTOR This lab is being obtained as part of a Kidney transplant evaluation, is time sensitive, and should only be drawn during the evaluation visit at [address] Jossie King MD LAB MICROBIOLOGY - GENERAL ORDERABLES Final Result Performing Organization Address City/[facility] Co de Phone Number [facility] [place] [address] * RPR Blood (07/29/2024 11:01 AM HANDS AND DIAL INSPECTOR) RPR Nonreactive Nonreactive Blood 07/29/2024 11:0 1 AM HANDS AND DIAL INSPECTOR 07/29/2024 11:33 AM HANDS AND DIAL INSPECTOR Narrative [facility] - 07/29/2024 12:34 PM HANDS AND DIAL INSPECTOR This lab is being obtained as part of a Kidney transplant evaluation, is time sensitive, and should only be drawn during the evaluation visit at [address] Result [facility] Jossie King MD LAB MICROBIOLOGY - GENERAL ORDERABLES Final Result Performing Organization Address [facility] de Phone Number [facility] Department [place] [address] * Hepatitis B surface antibody (immune status) Blood (07/29/2024 11:01 AM HANDS AND DIAL INSPECTOR) Pathologist [facility] HBsAb (immune status) Reactive Comment:This result is consi stent with immunity to Hepatitis B Virus when used in the setting of routine screening. Current interpretive data was last revised on 22 Blood 07/29/2024 11:0 1 AM HANDS AND DIAL INSPECTOR 07/29/2024 11:32 AM HANDS AND DIAL INSPECTOR Narrative [facility] - 07/29/2024 12:47 PM HANDS AND DIAL INSPECTOR This lab is being obtained as part of a Kidney transplant evaluation, is time sensitive, and should only be drawn during the evaluation visit at [address]. Jossie King MD LAB MICROBIOLOGY - GENERAL ORDERABLES Final Result Performing Organization Address City/[facility] Co de Phone Number [facility] Department [place] [address] * Hepatitis B Surface Antigen Blood (07/29/2024 11:01 AM HANDS AND DIAL INSPECTOR) [facility] HepBsAg Nonreactive Nonreactive Blood 07/29/2024 11:0 1 AM HANDS AND DIAL INSPECTOR 07/29/2024 11:32 AM HANDS AND DIAL INSPECTOR Narrative [facility] - 07/29/2024 12:47 PM HANDS AND DIAL INSPECTOR This lab is being obtained as part of a Kidney transplant evaluation, is time sensitive, and should only be drawn during the evaluation visit at [address] Lab. Jossie King MD LAB MICROBIOLOGY - GENERAL ORDERABLES Final Result Performing Organization Address [facility] [place] [address] * (ABNORMAL) aPTT (07/29/2024 11:01 AM HANDS AND DIAL INSPECTOR) [facility] aPTT 61(H) 28 - 38 sec Comment: Interpretive Data Heparin therapeutic range: 66.0 - 100.0 seconds. Range based on correlation with therapeutic heparin activity range of 0.3 - 0.7 Units/mL. Current interpretive data was last revised on 2023. Blood 07/29/2024 11:0 1 AM HANDS AND DIAL INSPECTOR 07/29/2024 11:32 AM HANDS AND DIAL INSPECTOR Narrative [facility] - 07/29/2024 11:42 AM HANDS AND DIAL INSPECTOR This lab is being obtained as part of a Kidney transplant evaluation, is time sensitive, and should only be drawn during the evaluation visit at [address] Lab. Jossie King MD LAB BLOOD ORDERABL ES Final Result Performing Organization Address City/[facility]/ZIP Co de Phone Number [facility] [place] [address] * (ABNORMAL) Protime-INR (07/29/2024 11:01 AM HANDS AND DIAL INSPECTOR) [facility] PT 50.6(H) 9.7 - 13.0 sec INR 4.54(H) 0.90 - 1.20 [facility] Comment: Interpretive data Oral anticoagulant therapeutic ranges: Venous thromboembolism prophylaxis or treatment: 2.0-3.0 CARDIOLOGY Standard range: 2.0-3.0 High-intensity range: 2.5-3.5 Refer to indication-specific guidelines for appropriate target ranges for prosthetic heart valve replacement. Current interpretive data was last revised on 2019. Blood 07/29/2024 11:0 1 AM HANDS AND DIAL INSPECTOR 07/29/2024 11:32 AM HANDS AND DIAL INSPECTOR Narrative [facility] - 07/29/2024 11:42 AM HANDS AND DIAL INSPECTOR This lab is being obtained as part of a Kidney transplant evaluation, is time sensitive, and should only be drawn during the evaluation visit at [address] Lab. Jossie King MD LAB BLOOD ORDERABL ES Final Result Performing Organization Address [facility] de Phone Number [facility] Department [place] [address] * Varicella Zoster IgG antibody Blood (07/29/2024 11:01 AM HANDS AND DIAL INSPECTOR) [facility] VZV IgG Reactive Reactive Comment:Reactive: Results diego ggest response to immunization or prior exposure to the virus. Blood 07/29/2024 11:0 1 AM HANDS AND DIAL INSPECTOR 07/29/2024 11:33 AM HANDS AND DIAL INSPECTOR Narrative [facility] 07/29/2024 1:45 PM HANDS AND DIAL INSPECTOR This lab is being obtained as part of a Kidney transplant evaluation, is time sensitive, and should only be drawn during the evaluation visit at [address]. Jossie King MD LAB MICROBIOLOGY - GENERAL ORDERABLES Final Result Performing Organization Address [facility] Co de Phone Number [facility] Department [place] [address] * (ABNORMAL) Uric acid (07/29/2024 11:01 AM HANDS AND DIAL INSPECTOR) [facility] Uric acid 2.0(L) 3.0 - 8.0 mg/dL Blood 07/29/2024 11:0 1 AM HANDS AND DIAL INSPECTOR 07/29/2024 11:33 AM HANDS AND DIAL INSPECTOR Narrative [facility] - 07/29/2024 12:10 PM HANDS AND DIAL INSPECTOR This lab is being obtained as part of a Kidney transplant evaluation, is time sensitive, and should only be drawn during the evaluation visit at [address] Jossie King MD LAB BLOOD ORDERABL ES Final Result Performing Organization Address [facility] de Phone Number [facility] [place] [address] * (ABNORMAL) Phosphorus (07/29/2024 11:01 AM HANDS AND DIAL INSPECTOR) [facility] Phosphorus, pl 5.1(H) 2.3 - 4.5 mg/dL Blood 07/29/2024 11:0 1 AM HANDS AND DIAL INSPECTOR 07/29/2024 11:33 AM HANDS AND DIAL INSPECTOR Narrative [facility] 07/29/2024 12:10 PM HANDS AND DIAL INSPECTOR This lab is being obtained as part of a Kidney transplant evaluation, is time sensitive, and should only be drawn during the evaluation visit at [address]. Jossie King MD LAB BLOOD ORDERABL ES Final Result Performing Organization Address [facility] de Phone Number [facility] Department [place] [address] * (ABNORMAL) PTH (07/29/2024 11:01 AM HANDS AND DIAL INSPECTOR) [facility] PTH 444(H) 15 - 65 pg/mL Blood 07/29/2024 11:0 1 AM HANDS AND DIAL INSPECTOR 07/29/2024 11:34 AM HANDS AND DIAL INSPECTOR Narrative [facility] - 07/29/2024 12:02 PM HANDS AND DIAL INSPECTOR This lab is being obtained as part of a Kidney transplant evaluation, is time sensitive, and should only be drawn during the evaluation visit at [address]. Result [facility] Jossie King MD LAB BLOOD ORDERABL ES Final Result Performing Organization Address [facility] Co de Phone Number [facility] [place] [address] * (ABNORMAL) Hemoglobin A1c (07/29/2024 11:01 AM HANDS AND DIAL INSPECTOR) Pathologist [facility] Hgb A1C 9.0(H) 4.0 - 5.6 % Estimated Average Glucose 212 mg/dL [facility] Comment: The ADA recommends reporting an estimated Average Glucose (eAG) with all Hemoglobin A1c results using the equation derived from a study of 507 normal and diabetic adults. ??Minority populations were underrepresented and children were not included. ?? (Diabetes Care 2020; 43(S1): S66-S76). ??The eAG is not equivalent to a fasting glucose. Blood 07/29/2024 11:0 1 AM HANDS AND DIAL INSPECTOR 07/29/2024 11:34 AM HANDS AND DIAL INSPECTOR Narrative [facility] - 07/29/2024 11:53 AM HANDS AND DIAL INSPECTOR This lab is being obtained as part of a Kidney transplant evaluation, is time sensitive, and should only be drawn during the evaluation visit at [address]. Result [facility] Jossie King MD LAB BLOOD ORDERABL ES Final Result Performing Organization Address [facility] de Phone Number [facility] [place] [address] * Gamma GT (07/29/2024 11:01 AM HANDS AND DIAL INSPECTOR) Pathologist [facility] GGT 22 10 - 50 Units/L Blood 07/29/2024 11:0 1 AM HANDS AND DIAL INSPECTOR 07/29/2024 11:33 AM HANDS AND DIAL INSPECTOR Narrative [facility] - 07/29/2024 12:40 PM HANDS AND DIAL INSPECTOR This lab is being obtained as part of a Kidney transplant evaluation, is time sensitive, and should only be drawn during the evaluation visit at [address]. Jossie King MD LAB BLOOD ORDERABL ES Final Result Performing Organization Address [facility] [place] [address] * (ABNORMAL) Ferritin (07/29/2024 11:01 AM HANDS AND DIAL INSPECTOR) Pathologist [facility] Ferritin 761(H) 30 - 400 ng/mL Blood 07/29/2024 11:0 1 AM HANDS AND DIAL INSPECTOR 07/29/2024 11:33 AM HANDS AND DIAL INSPECTOR Narrative [facility] - 07/29/2024 12:10 PM HANDS AND DIAL INSPECTOR This lab is being obtained as part of a Kidney transplant evaluation, is time sensitive, and should only be drawn during the evaluation visit at [facility] Lab. Jossie King MD LAB BLOOD ORDERABL ES Final Result Performing Organization Address [facility] de Phone Number [facility] [place] [address] * (ABNORMAL) Lipid panel (07/29/2024 11:01 AM HANDS AND DIAL INSPECTOR) Pathologist [facility] Cholesterol 114 30 - 199 mg/dL Comment: [...] revised on 2018. Triglycerides 66 <=149 mg/dL [facility] Comment: Interpretive Data [...] revised on 2018. HDL 29(L) >=40 mg/dL [facility] Comment: Interpretive Data Ages < [...] LDL, calculated 71 <=129 mg/dL [facility] Comment: Interpretive Data Ages < [...] revised on 2024. Non-HDL Cholesterol 85 mg/dL [facility] Comment: Interpretive Data Ages < [...] last revised on 2018. Chol/HDL ratio 4 [facility] Blood 07/29/2024 11:0 1 AM HANDS AND DIAL INSPECTOR 07/29/2024 11:33 AM HANDS AND DIAL INSPECTOR Narrative [facility] - 07/29/2024 12:10 PM HANDS AND DIAL INSPECTOR This lab is being obtained as part of a Kidney transplant evaluation, is time sensitive, and should only be drawn during the evaluation visit at [facility] Lab. us Jossie King MD LAB BLOOD ORDERABL ES Final Result [facility] Department [place] [address] * (ABNORMAL) Comprehensive metabolic panel (07/29/2024 11:01 AM HANDS AND DIAL INSPECTOR) Sodium 136 135 - 145 mmol/L Potassium, pl 4.6 3.3 - 4.9 mmol/L [facility] Chloride 93(L) 97 - 110 mmol/L [facility] CO2 26 22 - 32 mmol/L [facility] Anion gap 17(H) 2 - 15 mmol/L [facility] BUN 65(H) 6 - 25 mg/dL [facility] Creatinine 8.07(H) 0.80 - 1.30 mg/dL [facility] Glucose 280(H) 70 - 199 mg/dL [facility] Comment: Interpretive Data Fasting glucose >/= [...] 2022. Calcium 9.4 8.5 - 10.3 mg/dL [facility] Bilirubin, total 0.3 0.1 - 1.2 mg/dL [facility] Protein, pl 7.2 6.5 - 8.5 g/dL [facility] Albumin 3.8 3.5 - 5.0 g/dL [facility] Alk phos 99 40 - 130 Units/L [facility] ALT 30 7 - 55 Units/L [facility] AST 31 10 - 50 Units/L [facility] Blood 07/29/2024 11:0 1 AM HANDS AND DIAL INSPECTOR 07/29/2024 11:33 AM HANDS AND DIAL INSPECTOR Narrative [facility] - 07/29/2024 12:10 PM HANDS AND DIAL INSPECTOR This lab is being obtained as part of a Kidney transplant evaluation, is time sensitive, and should only be drawn during the evaluation visit at [facility] Lab. Jossie King MD LAB BLOOD ORDERABL ES Final Result Performing Organization Address City/[facility]/ZIP Co de Phone Number [facility] Department of [place] [address] * (ABNORMAL) Oxalate (oxalic acid) (07/29/2024 10:53 AM HANDS AND DIAL INSPECTOR) Oxalate 12.3(H) <=2.0 mcmol/L [place] ref Lab Comment: High value suggestive of Primary Hyperoxaluria. However, if the patient has chronic kidney disease (GFR<30 mL/min/1.73m2), plasma oxalate values up to 30 mcmol/L can be normal. The [facility] is available to review case details and answer any questions regarding interpretation ([email or web address]; [phone]) ADDITIONAL INFORMATION This test has been modified from the council member's instructions. Its performance characteristics were determined by [facility] in a manner consistent with CLIA requirements. This test has not been cleared or approved by the U.S. Food and Drug Administration. Test Performed by: [facility] [address] [address] Brick Veneer Maker: Jairo Higgins Ph.D.; CLIA# [id number] Blood 07/29/2024 10:5 3 AM HANDS AND DIAL INSPECTOR 07/29/2024 11:37 AM HANDS AND DIAL INSPECTOR us Jossie King MD LAB BLOOD ORDERABL ES Final Result ALESSANDRA CARRION [address] Department [place] [address] [place] ref Lab * (ABNORMAL) Urinalysis reflex to microscopic (07/29/2024 10:53 AM HANDS AND DIAL INSPECTOR) Color, ur Yellow Yellow Clarity, ur Cloudy(A) Clear [facility] Specific gravity, ur 1.022 1.003 - 1.030 [facility] pH, urine 6.0 [facility] Comment: Interpretive Data ? Urine pH is affected by diet, medications, systemic acid-base disturbances, and renal tubular function. ??pH may affect urinary stone formation. ??For example, urine pH below 6.0 may help reduce the tendency for calcium phosphate stones and pH greater than 6.0 may reduce the tendency for uric acid stone formation. Source: [facility] Current Interpretive Data was last revised on 2017 Protein, ur ql 2+(A) Negative [facility] Glucose, ur ql 4+(A) Negative [facility] Ketones, ur Negative Negative [facility] Bilirubin, ur Negative Negative [facility] Blood, ur 3+(A) Negative [facility] Urobilinogen, ur <2.0 <2.0 mg/dL [facility] Nitrite, ur Negative Negative [facility] Leukocyte esterase, ur 2+(A) Negative [facility] UA reflex comment Reflex to microscopic UA will be performed. [facility] Urine 07/29/2024 10:5 3 AM HANDS AND DIAL INSPECTOR 07/29/2024 11:27 AM HANDS AND DIAL INSPECTOR Narrative [facility] - 07/29/2024 11:29 AM HANDS AND DIAL INSPECTOR This lab is being obtained as part of a Kidney transplant evaluation, is time sensitive, and should only be drawn during the evaluation visit at [facility] 3C Lab. us Jossie King MD LAB URINE ORDERABL ES Final Result [facility] [address] Department [place] [address] * (ABNORMAL) Urinalysis, microscopic only (07/29/2024 10:53 AM HANDS AND DIAL INSPECTOR) WBC, ur 21-50(A) 0 - 5 /HPF RBC, ur >50(A) 0 - 2 /HPF [facility] Epithelial cells, squamous, ur 1-5 0 - 5 /HPF [facility] Bacteria, ur Trace(A) [facility] Mucous, ur Present(A) [facility] Hyaline casts, ur 1-5 0 - 10 /LPF [facility]DRA [facility] Urine 07/29/2024 10:5 3 AM HANDS AND DIAL INSPECTOR 07/29/2024 11:27 AM HANDS AND DIAL INSPECTOR us Jossie King MD LAB URINE ORDERABL ES Final Result Performing Organization Address City/[facility]/ZIP Co de Phone Number [facility] [address] [place] [address] * Cardiology Document Scan (06/07/2024 11:10 AM CDT) Anatomical Region Laterality Modality Other us Karen Barnes NP CV CARDIAC SERVICES PROCEDUR ES Final Result * (ABNORMAL) TSH (10/27/2023 2:30 AM HANDS AND DIAL INSPECTOR) Thyroid Stimulating Hormone 13.20(H) 0.30 - 4.20 mcIUnit/mL Blood 10/27/2023 2:30 AM HANDS AND DIAL INSPECTOR 10/27/2023 2:42 AM HANDS AND DIAL INSPECTOR us Lorne Mcnulty MD LAB BLOOD ORDERABLES Final Result [facility] [address] Department [place] [address] from Last 3 Months or Most Recently Relevant to Health Maintenance
--- OUTSIDE RECORDS SUMMARY | 2024-09-07 23:32 | XMS_ITS | Encounter Summary ---
Author Organization [facility] Healthcare Address [address] [place] [address] Care Team Providers Care Director Nurses' Registry Name Role Phone Aditya Castro MD Primary Care Provider [phone] Alondra Lambert RN Unavailable [phone] Shannon Brock MD, Hamlet Gordon Unavailable [phone] Encounter Details Date Type Department Care Team (Late st Contact Info) Description 07/26/[address] 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 EN STITCHER documented in this encounter Plan of Treatment Not on file documented as of this encounter Visit Diagnoses Not on filedocumented in this encounter Care Teams Director Nurses' Registry Relationship Specialty Start Date End Date Aditya Castro MD [address] [facility] [place] [address] PCP - General 10/17/19 Alondra Lambert, RN [address] [facility] [address] [place] [address] Vertical Boring Mill Operator 03/06/24 Hamlet Ortega Jr., MD [address] [place] [address] Consulting Physician Cardiovascular Disease 05/10/24 documented as of this encounter
--- OUTSIDE RECORDS SUMMARY | 2024-09-07 23:32 | XMS_ITS | Encounter Summary ---
Author Organization [facility] Address [address] [place] [address] Phone Care Team Providers Care Principal Clerk Typist Name Role Phone Aditya Castro MD Primary Care Provider [phone] Alondra Lambert RN Unavailable [phone] Shannon Brock MD, Hamlet P. Unavailable [phone] Leandro Reyes MD Unavailable [phone] Encounter Details Date Type Department Care Team (Late st Contact Info) Description 07/29/2024 1:00 PM CLIENT SALES AND SERVICE OFFICER Office Visit 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 1 to 4 times per year 10/16/2023 Do you belong to any clubs o r organizations such as buddhist groups, unions, fraternal or athletic groups, or [...] file Legal Sex Male 3:42 AM CLIENT SALES AND SERVICE OFFICER Gender Identity Not on file Sexual Orientation Not on file documented as of this encounter Last Filed Vital Signs Vital Sign Reading Time Taken Comments Blood Pressure 122/75 07/29/2024 1:00 PM CLIENT SALES AND SERVICE OFFICER Pulse 116 07/29/2024 1:00 PM CLIENT SALES AND SERVICE OFFICER Temperature 36.8 ??C (98.2 ??F) 07/29/2024 1:00 PM CS T Respiratory Rate - - Oxygen Saturation - - Inhaled Oxygen Concentration - - Weight 121.2 kg (267 lb 1.6 oz) 07/29/2024 1:00 PM CLIENT SALES AND SERVICE OFFICER Height 177.8 cm (5' 10 ) 07/29/2024 1:00 PM CLIENT SALES AND SERVICE OFFICER Body Mass Index 38.32 07/29/2024 1:00 PM CLIENT SALES AND SERVICE OFFICER documented in this encounter Progress Notes * [...] mech AVR 09/2023 with sternal plate 5. [place]/STEMI 2016 and 2019. Prior stent 03/2017 to [...] 1 tablet (25 mcg total) by mouth speech therapist early intervention beforebreakfast, Disp: 30 tablet, Rfl: 1 Linzess [...] by mouth daily, Disp: , Rfl: peg [id number] (ARTIFICAL TEARS) 1-0.2-0.2 % ophthalmic solution, 1 [...] Nonreactive 07/29/2024 Lab Results Component Value Date [id number] Nonreactive 07/29/2024 Lab Results Component Value Date [...] of intravenous contrast. INDICATIONS: Coronary artery disease, morongo vessel. Measurements: 2D/M Mode Doppler Measurement Value [...] testing, I have communicated with the patient's [facility] proposal coordinator the patient's candidacy for transplant and [...] as well. He should work with his house parent on volume removal/fluid restriction to optimize this. [...] SHR donors. 12. Being seen by his house parent this week for the PD cath. The [...] time spent in any separately reportable services. 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 Paroxysmal atrial fibrillation (CMS/HCC) (HCC) Atrial [...] tablet added in this encounter Care Teams Principal Clerk Typist Relationship Specialty Start Date End Date Aditya Castro MD [address] [facility] [place] [address] PCP - General 10/17/19 Alondra Lambert, RN 4590 [facility] [address] [place] [address] Billet Driller 03/06/24 Hamlet Ortega Jr., MD [address] [place] [address] Consulting Physician Cardiovascular Disease 05/10/24 Leandro Reyes MD [address] [place] [address] Consulting Physician Nephrology 07/30/24 documented as of this encounter
--- OUTSIDE RECORDS SUMMARY | 2024-09-07 23:32 | XMS_ITS | Encounter Summary ---
Author Organization [facility] Healthcare Address [address] [place] [address] Care Team Providers Care Rubber Gasket Inspector Trimmer Name Role Phone Aditya Castro MD Primary Care Provider [phone] Alondra Lambert RN Unavailable [phone] Shannon Brock MD, Hamlet Gordon Unavailable [phone] Encounter Details Date Type Department Care Team (Late st Contact Info) Description 07/29/2024 9:00 AM POWER SYSTEM ELECTRICAL ENGINEER Social Work [facility] Trans[facility] Critical access hospital[facility], 8th Floor, [place] [address] Social History Tobacco Use Types Packs/Day Years [...] materials from doctor or pharmacy Never 12/01/2023 [facility] Utilities Answer Date Recorded [...] week 08/01/2024 How often do you attend faith or druze serv ices? Never 08/01/2024 Do you belong to any clubs o r organizations such as faith groups, unions, fraternal or athletic groups, or [...] any time in the past 12 m [facility], were you homeless or living in [...] on file Legal Sex Male 3:42 AM POWER SYSTEM ELECTRICAL ENGINEER Gender Identity Not on file Sexual [...] sibling Marital Status: Do you have a Restorationism Preference or Affiliation?: Yes Preference/Affiliation: Zoroastrianism Current Transportation: Own vehicle Miles from [facility]: 24 Living Arrangements: Children Type of Residence: Private residence Address: [place] [address] How many stairs inside?: 0 How many stairs outside?: 0 Summary of Support System: Pt is currently residing with his son, Juno (19), in a home that [place]rent in [place], [place], which is approximately 24 [address] from [address] hospital. Pt is and has two children. His daughter Og (23) lives about 15 minutes away from the patient. She is a director school of nursing. His son is still in high school. [...] does not have advance directive on file [facility]. SW provided paperwork and he will [...] which he initiated October 16, 2019 with [employer]. He has his labs drawn there at [facility] and [facility]. He is able to drive and transports himself to medical appointments independently. Patient also has a Medicaid funded grounds maintenance worker who comes three days per week to assist with tasks at home. 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 He states that he is notpaying any premiums for his Medicare and has not had any concerns regarding his insurance coverage.He does not plan to make any changes to coverage in the year ahead. Pharmacy: [facility] Social work defers to the manager of financial planning for a review of coverage. Substance Use [...] Disorder?: No Legal History Prior Arrest/Incarceration: No Probation/[place]: No Warrants/Charges/Cases: No Valid Core Dropper???s License: Yes Summary of Legal History: The [...] including the clinical judgement of the social work coordinator. SIPAT Total Score: 18 SIPAT Score Interpretation [...] Completed by: Sera Callahan LCSW, OSW-C Transplant Morals Squad Police Officer This note was written as a communication tool between healthcare providers and may contain technical language, terminology, use of tools and abbreviations that are difficult to interpret without advanced training. If you have questions or concerns regarding what is written in this note, please request to speak with the primary medical team taking care of you or your family member. R SYSTEM ELECTRICAL ENGINEER documented in this encounter Plan of Treatment Not on file documented as of this encounter Visit Diagnoses Not on filedocumented in this encounter Care Teams Rubber Gasket Inspector Trimmer Relationship Specialty Start Date End Date Aditya Castro MD [address] [facility] [place] [address] PCP - General 10/17/19 Alondra Lambert, RN 3527 [facility] [address] [place] [address] Time Clock Mechanic 03/06/24 Hamlet Ortega Jr., MD [address] [place] [address] Consulting Physician Cardiovascular Disease 05/10/24 documented as of this encounter
--- OUTSIDE RECORDS SUMMARY | 2024-09-07 23:32 | XMS_ITS | Encounter Summary ---
Author Organization [facility] Healthcare Address [address] [place] [address] Care Team Providers Care Laboratory Engineer Name Role Phone Aditya Castro MD Primary Care Provider [phone] Alondra Lambert RN Unavailable [phone] Shannon Brock MD, Hamlet Gordillo. Unavailable [phone] Reason for Visit * Reason Onset Date Comments Appointment/Schedules 05/13/2024 Encounter Details Date Type Department Care Team (Late st Contact Info) Description 05/13/2024 Documentation [facility] and [facility] Transplant Kidney [address] [id number] [place] [address] Melany Kelly Appointment/Schedules Social History Tobacco Use [...] materials from doctor or pharmacy Never 12/01/2023 [facility] Utilities Answer Date Recorded In [...] on file Legal Sex Male 3:42 AM GRANITE POLISHER APPRENTICE Gender Identity Not on file Sexual Orientation [...] on filedocumented in this encounter Care Teams Laboratory Engineer Relationship Specialty Start Date End Date Aditya Castro MD [address] [facility] [place] [address] PCP - General 10/17/19 Alondra Lambert, RN [address] [facility] [address] [place] [address] Giver 03/06/24 Hamlet Ortega Jr., MD [address] [place] [address] Consulting Physician Cardiovascular Disease 05/10/24 documented as of this encounter
--- OUTSIDE RECORDS SUMMARY | 2024-09-07 23:32 | XMS_ITS | Encounter Summary ---
Author Organization [facility] Healthcare Address [address] [place] [address] Care Team Providers Care Warp Coiler Name Role Phone Aditya Castro MD Primary Care Provider [phone] Alondra Lambert RN Unavailable [phone] Shannon Brock MD, Hamlet P. Unavailable [phone] Encounter Details Date Type Department Care Team (Late st Contact Info) Description 07/26/2024 Orders Only [facility] and [facility] Transplant Kidney [address] [address] Mailstop [phone] [place], [place] [id number] Alondra Lambert, RN [address] [facility] [address] [place] [id number] ESRD (end stage renal disease) ([facility]/HCC) (HCC) (Primary Dx) Social History Tobacco Use [...] on file Legal Sex Male 3:42 AM ASPHALT TAR AND GRAVEL ROOFER Gender Identity Not on file Sexual Orientation Not on file documented as of this encounter Plan of Treatment Not on file documented as of this encounter Results * (ABNORMAL) Oxalate (oxalic acid) (07/29/2024 10:53 AM ASPHALT TAR AND GRAVEL ROOFER) Oxalate 12.3(H) <=2.0 mcmol/L [place] ref Lab Comment: High value suggestive of Primary Hyperoxaluria. However, if the patient has chronic kidney disease (GFR<30 mL/min/1.73m2), plasma oxalate values up to 30 mcmol/L can be normal. The [facility] is available to review case details and answer any questions regarding interpretation ([email or web address]; [phone]) ADDITIONAL INFORMATION This test has been modified from the microfilmer's instructions. Its performance characteristics were determined by [facility] in a manner consistent with CLIA requirements. This test has not been cleared or approved by the U.S. Food and Drug Administration. Test Performed by: [address] [address] [employer] Travel Counselor: Jairo Higgins Ph.D.; CLIA# [id number] Blood 07/29/2024 10:5 3 AM ASPHALT TAR AND GRAVEL ROOFER 07/29/2024 11:37 AM ASPHALT TAR AND GRAVEL ROOFER us Jossie King MD LAB BLOOD ORDERABL ES Final Result [facility]A [facility] [address] [facility] [address] Department [place] [address] Call ref Lab documented in this encounter Visit Diagnoses Diagnosis ESRD (end stage renal disease) (CMS/HCC) (HCC)- Primary End stage renal disease documented in this encounter Care Teams Warp Coiler Relationship Specialty Start Date End Date Aditya Castro MD [address] [facility] [place] [address] PCP - General 10/17/19 Alondra Lambert, RN [address] [facility] [address] [place] [address] Senior Sales Engineer 03/06/24 Hamlet Ortega Jr., MD [address] [place] [address] Consulting Physician Cardiovascular Disease 05/10/24 documented as of this encounter
--- OUTSIDE RECORDS SUMMARY | 2024-09-07 23:32 | XMS_ITS | Encounter Summary ---
Author Organization [facility] Healthcare Address [address] [place] [address] Care Team Providers Care Supervisor Stave Cutting Name Role Phone Aditya Castro MD Primary Care Provider [phone] Alondra Lambert RN Unavailable [phone] Shannon Brock MD, Hamlet Gordon Unavailable [phone] Encounter Details Date Type Department Care Team (Late st Contact Info) Description 05/16/2024 Documentation [facility] Transplant Kidney [address] [phone] [place] [address] Melany Kelly Social History Tobacco Use Types [...] Recorded In the past 12 months has [employer], gas, oil, or water company threatened to [...] Legal Sex Male 3:42 AM DIRECTOR OF DIGITAL MARKETING Gender Identity Not on file Sexual Orientation Not on file documented as of this encounter Progress Notes * Melany Kelly - 05/16/2024 9:00 AM CDT Mailed c/c folder, schedule, consents, etc documented in this encounter Plan of Treatment Not on file documented as of this encounter Visit Diagnoses Not on filedocumented in this encounter Care Teams Supervisor Stave Cutting Relationship Specialty Start Date End Date Aditya Castro MD [address] [facility] [place] [address] PCP - General 10/17/19 Alondra Lambert RN 45[address] [facility] [address] [place] [address] Medical Fee Clerk 03/06/24 Hamlet Ortega Jr., MD [address] [place] [address] Consulting Physician Cardiovascular Disease 05/10/24 documented as of this encounter
--- OUTSIDE RECORDS SUMMARY | 2024-09-07 23:32 | XMS_ITS | Encounter Summary ---
Author Organization [facility] Healthcare Address [address] [place] [address] Care Team Providers Care Oracle Applications Analyst Name Role Phone Aditya Castro MD Primary Care Provider [phone] Alondra Lambert RN Unavailable [phone] Shannon Brock MD, Halmet Gordon Unavailable [phone] Encounter Details Date Type Department Care Team (Late st Contact Info) Description 06/24/2024 Telephone [facility] and [facility] Transplant Kidney [address] [address] Mailstop [phone] [place] [address] Chris Richard Social History Tobacco Use Types [...] In the past 12 months has e [employer], gas, oil, or water company threatened [...] on file Legal Sex Male 3:42 AM DRILL HAND Gender Identity Not on file Sexual Orientation Not on file documented as of this encounter Miscellaneous Notes * Telephone Encounter - Chris Richard - 06/24/2024 4:08 PM CST Outreached to [employer] Intake at , per New, patient's kidney transplant evaluation caseis initiated under effective 06/24/2024. Pending confirmation. L HAND documented in this encounter Plan of Treatment Not on file documented as of this encounter Visit Diagnoses Not on filedocumented in this encounter Care Teams Oracle Applications Analyst Relationship Specialty Start Date End Date Aditya Castro MD [address] [facility] [place] [address] PCP - General 10/17/19 Alondra Lambert, RN [address] [facility] [address] [place] [address] Pin Ticket Machine Operator 03/06/24 Hamlet Ortega Jr., MD [address] [place] [address] Consulting Physician Cardiovascular Disease 05/10/24 documented as of this encounter
--- OUTSIDE RECORDS SUMMARY | 2024-09-07 23:32 | XMS_ITS | Encounter Summary ---
Author Organization [facility] Healthcare Address [address] [place] [address] Care Team Providers Care Cath Lab Tech Name Role Phone Aditya Castro MD Primary Care Provider [phone] Alondra Lambert RN Unavailable [phone] Shannon Brock MD, Hamlet Gordon Unavailable [phone] Encounter Details Date Type Department Care Team (Late st Contact Info) Description 06/11/2024 Orders Only [facility] Medical Group Cardiology [address] [place] [address] Karen Barnes, ROBERTO [address] [place] [address] Social History Tobacco Use Types [...] on file Legal Sex Male 3:42 AM PIZZAMAKER Gender Identity Not on file Sexual Orientation [...] on filedocumented in this encounter Care Teams Cath Lab Tech Relationship Specialty Start Date End Date Aditya Castro MD [address] [facility] [place] [address] PCP - General 10/17/19 Alondra Lambert, RN [address] [facility] [address] [place] [address] Clinical Data Management Director 03/06/24 Hamlet Ortega Jr., MD [address] [place] [address] Consulting Physician Cardiovascular Disease 05/10/24 documented as of this encounter
--- OUTSIDE RECORDS SUMMARY | 2024-09-07 23:32 | XMS_ITS | Encounter Summary ---
Author Organization [facility] Healthcare Address [address] [place] [address] Care Team Providers Care Wine Master Name Role Phone Aditya Castro MD Primary Care Provider [phone] Alondra Lambert RN Unavailable Shannon Brock MD, Hamlet Gordon Unavailable [phone] Encounter Details Date Type Department Care Team (Late st Contact Info) Description 07/22/2024 Telephone [facility] Transplant Kidney [address] [address] [address] [phone] [place] [address] Chris Richard Social History Tobacco Use Types [...] from doctor or pharmacy Never 12/01/2023 [facility] Utilities Answer Date Recorded In the past 12 months has e [employer], gas, oil, or water company threatened [...] any clubs o r organizations such as oriental orthodox groups, unions, fraternal or athletic groups, [...] file Legal Sex Male 3:42 AM HOT SHOT Gender Identity Not on file Sexual Orientation Not on file documented as of this encounter Miscellaneous Notes * Telephone Encounter - Chris Richard - 07/22/2024 10:10 AM CST Outreached to patient at [phone] for the scheduled 1000 financial consult, left detailed voicemail requesting patient to call back. SHOT documented in this encounter Plan of Treatment Not on file documented as of this encounter Visit Diagnoses Not on filedocumented in this encounter Care Teams Wine Master Relationship Specialty Start Date End Date Aditya Castro MD [address] [facility] [place] [address] PCP - General 10/17/19 Alondra Lambert, RN [address] [facility] [address] [place] [address] Warehouse Shipping Associate 03/06/24 Hamlet Ortega Jr., MD [address] [place] [address] Consulting Physician Cardiovascular Disease 05/10/24 documented as of this encounter
--- OUTSIDE RECORDS SUMMARY | 2024-09-07 23:32 | XMS_ITS | Encounter Summary ---
Author Organization [facility] Healthcare Address [address] [place] [address] Care Team Providers Care Floor Mechanic Name Role Phone Aditya Castro MD Primary Care Provider [phone] Alondra Lambert RN Unavailable [phone] Shannon Brock MD, Hamlet Gordon Unavailable [phone] Encounter Details Date Type Department Care Team (Late st Contact Info) Description 06/28/2024 Telephone [facility] Transplant Kidney [address] [address] Mail[address] [phone] [place] [address] Chris Richard Social History Tobacco Use Types [...] In the past 12 months has e [employer], gas, oil, or water company threatened to [...] on file Legal Sex Male 3:42 AM PROCESS ARTIST Gender Identity Not on file Sexual Orientation Not on file documented as of this encounter Miscellaneous Notes * Telephone Encounter - Chris Richard - 06/28/2024 12:15 PM CST Voicemail from Yovanny, web operations manager of [employer], states patient's kidney transplant [phone] effective [phone] with no expiration date. Yovanny can be reached at [phone] ext [phone]. ESS ARTIST documented in this encounter Plan of Treatment Not on file documented as of this encounter Visit Diagnoses Not on filedocumented in this encounter Care Teams Floor Mechanic Relationship Specialty Start Date End Date Aditya Castro MD [address] [facility] [place] [address] PCP - General 10/17/19 Alondra Lambert, RN [address] [facility] [address] [place] [address] Frankfurter Inspector 03/06/24 Hamlet Ortega Jr., MD [address] [place] [address] Consulting Physician Cardiovascular Disease 05/10/24 documented as of this encounter
--- OUTSIDE RECORDS SUMMARY | 2024-09-07 23:32 | XMS_ITS | Encounter Summary ---
Author Organization [facility] Healthcare Address [address] [place] [address] Care Team Providers Care Inlayer Silver Name Role Phone Aditya Castro MD Primary Care Provider [phone] Alondra Lambert RN Unavailable [phone] Shannon Brock MD, Hamlet Gordon Unavailable [phone] Encounter Details Date Type Department Care Team (Late st Contact Info) Description 07/29/2024 Telephone [facility] Transplant Kidney [address] [facility] [address] [phone] [place], [place] [id number] Alondra Lambert, RN [address] [facility] [address] [place] [id number] Social History Tobacco Use Types Packs/Day Years [...] materials from doctor or pharmacy Never 12/01/2023 [facility] Utilities Answer Date Recorded In the past [...] on file Legal Sex Male 3:42 AM RAIL TRANSPORTATION TABELER Gender Identity Not on file Sexual Orientation [...] 10. He is heading this way now. TRANSPORTATION TABELER documented in this encounter Plan of Treatment Not on file documented as of this encounter Visit Diagnoses Not on filedocumented in this encounter Care Teams Inlayer Silver Relationship Specialty Start Date End Date Aditya Castro MD [address] [facility] [place] [address] PCP - General 10/17/19 Alondra Lambert, RN [address] [place] [address] Paint Coating Machine Operator 03/06/24 Hamlet Ortega Jr., MD [address] [place] [address] Consulting Physician Cardiovascular Disease 05/10/24 documented as of this encounter
--- OUTSIDE RECORDS SUMMARY | 2024-09-07 23:32 | XMS_ITS | Encounter Summary ---
Author Organization [facility] Healthcare Address [address] [place] [address] Care Team Providers Care Cooker Soda Name Role Phone Aditya Castro MD Primary Care Provider [phone] Alondra Lambert RN Unavailable [phone] Shannon Brock MD, Hamlet Gordillo. Unavailable [phone] Reason for Referral * Diagnostic Imaging (Routine) - Pending Review Specialty Diagnoses / Procedures Referred By Contac t Referred To Contact Diagnoses End stage renal disease (CMS/HCC) (HCC) Procedures XR Orthopantogram Panorex Jossie King MD [address] [place] [address] Phone: tel: fax: [facility] [address] [place] [address] Referral ID Status Reason Start Date Expiration Date V isits Requested Visits Authorized [id number] Pending Review 05/10/2024 06/09/2025 1 1 CY SERVICE REPRESENTATIVE Reason for Visit * Diagnostic Imaging (Routine) - Pending Review Specialty Diagnoses / Procedures Referred By Contac t Referred To Contact Diagnoses End stage renal disease (CMS/HCC) (HCC) Procedures XR Orthopantogram Panorex Jossie King MD [address] [place] [address] Phone: tel: fax: [facility] [address] [facility] [place] [address] Referral ID Status Reason Start Date Expiration Date V isits Requested Visits Authorized [id number] Pending Review 05/10/2024 06/09/2025 1 1 Encounter Details Date Type Department Care Team (Latest Contact Info) Description 07/29/2024 10:55 AM AGENCY SERVICE REPRESENTATIVE - 07/29/2024 11:59 PM AGENCY SERVICE REPRESENTATIVE Hospital Encounter [facility] [address] [place] [address] End stage renal disease (CMS/HCC) (HCC) Discharge [...] In the past 12 months has e [employer], gas, oil, or water [employer] threatened to shut off services in your [...] How often do you attend chur or roman catholic services? 1 to 4 [...] on file Legal Sex Male 3:42 AM AGENCY SERVICE REPRESENTATIVE Gender Identity Not on file [...] PUMP: Continue Omnipod 5 insulin pump with Remotium G6 CGM at home settings: TIME BASAL [...] 1 tablet (25 mcg total) by mouth hr business partner before breakfast 30 tablet 1 11/04/2023 Linzess [...] (20 mg total) by mouth daily peg [id number] cerin (ARTIFICAL TEARS) 1-0.2-0.2 % ophthalmic solution [...] 500 mg tablet warfarin (COUMADIN) 2 mg tabletIndications:Nh chanical Valve Thromboembolism Prophylaxis Take 4 mg [...] Read Routine (OP Routine) 07/29/2024 11:44 AM AGENCY SERVICE REPRESENTATIVE End stage renal disease (CMS/[facility]) ([facility]) documented in this encounter Results * XR Orthopantogram Panorex (07/29/2024 11:44 AM AGENCY SERVICE REPRESENTATIVE) Anatomical Region Laterality Modality Head and Neck N/A Panoramic X-Ray 07/29/2024 12:5 9 PM AGENCY SERVICE REPRESENTATIVE Impressions 07/29/2024 12:59 PM AGENCY SERVICE REPRESENTATIVE 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 Electronically signed by: Julio Pinedo M.D. Narrative 07/29/2024 12:59 PM AGENCY SERVICE REPRESENTATIVE EXAMINATION: XR ORTHOPANTOGRAM/PANOREX HISTORY: Kidney Transplant [...] disease documented in this encounter Care Teams Cooker Soda Relationship Specialty Start Date End Date Aditya Castro MD [address] [facility] [place] [address] PCP - General 10/17/19 Alondra Lambert, RN [address] [facility] [address] [place] [address] Spreading Machine Operator 03/06/24 Hamlet Ortega Jr., MD [address] [place] [address] Consulting Physician Cardiovascular Disease 05/10/24 documented as of this encounter
--- OUTSIDE RECORDS SUMMARY | 2024-09-07 23:32 | XMS_ITS | Encounter Summary ---
Author Organization [facility] Healthcare Address [address] [place] [address] Care Team Providers Care Case Coordinator Name Role Phone Aditya Castro MD Primary Care Provider [phone] Alondra Lambert RN Unavailable [phone] Shannon Brock MD, Hamlet P. Unavailable [phone] Reason for Visit * (Routine) - Pending Review Specialty Diagnoses / Procedures Referred By Contac t Referred To Contact Diagnoses End stage renal disease (CMS/HCC) (HCC) Procedures Six Minute Walk - Jossie King MD [address] [place] [address] Phone: tel: fax: [address] [address] Referral ID Status Reason Start Date Expiration Date V isits Requested Visits Authorized [id number] Pending Review 05/10/2024 06/09/2025 1 1 Encounter Details Date Type Department Care Team (Latest Contact Info) Description 07/29/2024 11:02 AM MANAGER ETHICS - 07/29/2024 11:59 PM MANAGER ETHICS Hospital Encounter [facility] [address] [facility] [address] [place] [address] Discharge Disposition: Discharge to home [...] materials from doctor or pharmacy Never 12/01/2023 [facility] Utilities Answer Date Recorded In [...] any clubs o r organizations such as orthodoxy groups, unions, fraternal or athletic groups, or [...] file Legal Sex Male 3:42 AM MANAGER ETHICS Gender Identity Not on file Sexual Orientation [...] PUMP: Continue Omnipod 5 insulin pump with [employer] G6 CGM at home settings: TIME BASAL [...] tablet (25 mcg total) by mouth early years teacher before breakfast 30 tablet 1 11/04/2023 Linzess [...] (20 mg total) by mouth daily peg [id number] cerin (ARTIFICAL TEARS) 1-0.2-0.2 % ophthalmic solution [...] SIX MINUTE WALK Routine 07/29/2024 2:46 PM MANAGER ETHICS End stage renal disease (CMS/HCC) (HCC) documented in this encounter Results * Six Minute Walk - (07/29/2024 2:46 PM MANAGER ETHICS) Anatomical Region Laterality Modality PFT Narrative 07/29/2024 3:52 PM MANAGER ETHICS Table formatting from the original result was not included. Davey Pickard V., ELEVATOR TENDER on 07/29/2024 ??2:45 PM Table formatting from the original note was not included. 6 MINUTE WALK RESULTS Name: Juvenal Daigle Jr : 1970 DOS: 07/29/2024 Diagnosis: ESRD/KTE ELEVATOR TENDER performed walk: Carmenza Pickard Rest: 1 min [...] RA at rest and with exercise [facility] Jaylen King MD RESPIRATORY CARE O RDERABLES Final Result documented in this encounter Visit Diagnoses Not on filedocumented in this encounter Care Teams Case Coordinator Relationship Specialty Start Date End Date Aditya Castro MD [address] [facility] [place] [address] PCP - General 10/17/19 Alondra Lambert, RN [address] [facility] [address] [place] [address] Mortgage Protection Sales 03/06/24 Hamlet Ortega Jr., MD [address] [place] [address] Consulting Physician Cardiovascular Disease 05/10/24 documented as of this encounter
--- OUTSIDE RECORDS SUMMARY | 2024-09-07 23:32 | XMS_ITS | Referral Summary ---
Author Organization [facility] Address [address] [place] [address] Care Team Providers Care Supervisor Pig Machine Name Role Phone Aditya Castro MD Primary Care Provider [phone] Alondra Lambert RN Unavailable Shannon Brock MD, Hamlet P. Unavailable [phone] Leandro Reyes MD Unavailable [phone] Encounters Date Type Department Care Team Description 08/06/2024 Documentation [facility] and [facility] Transplant Kidney [address] [facility] [address] [place] [address] [id number] [place] [address] Alondra Lambert RN 07/30/2024 Telephone [facility] Transplant Kidney [address] [facility] [address] [place], [place] [address]op [id number] [place] [address] Alondra Lambert RN 07/29/2024 10:55 AM ASSOCIATE PROFESSOR OF MEDICINE - 07/29/2024 11:59 PM ASSOCIATE PROFESSOR OF MEDICINE Hospital Encounter [facility] [address] [place] [id number] End stage renal disease (CMS/HCC) (HCC) Discharge Disposition: Discharge to home or self care 07/29/2024 10:53 AM ASSOCIATE PROFESSOR OF MEDICINE - 07/29/2024 11:59 PM ASSOCIATE PROFESSOR OF MEDICINE Hospital Encounter [facility]) [address] [place] [address] End stage renal disease (CMS/HCC) ([facility]) Discharge Disposition: Discharge to home or self care 07/29/2024 1:15 PM ASSOCIATE PROFESSOR OF MEDICINE Lab [facility] [address] [place] [address] End stage renal disease (CMS/HCC) (HCC); ESRD (end stage renal disease) (CMS/HCC) (HCC) 07/29/2024 Telephone [facility] Transplant Kidney [address] [facility] [address] Mailstop [id number] [place] [address] Alondra Lambert RN 07/29/2024 10:58 AM ASSOCIATE PROFESSOR OF MEDICINE - 07/29/2024 11:59 PM ASSOCIATE PROFESSOR OF MEDICINE Hospital Encounter [facility] Radiology [facility] [address] [place] [address] End stage renal disease ([facility]) ([facility]) Discharge Disposition: Discharge to home or self care 07/29/2024 9:00 AM ASSOCIATE PROFESSOR OF MEDICINE Social Work [facility] Transplant [facility] [address] [facility], 8th Floor, [place] [address] 07/29/2024 11:02 AM ASSOCIATE PROFESSOR OF MEDICINE - 07/29/2024 11:59 PM ASSOCIATE PROFESSOR OF MEDICINE Hospital Encounter [facility] Pulmonary Rehabilitiation Program [address] [facility] [address] [place] [address] Discharge Disposition: Discharge to home or self care 07/29/2024 1:00 PM ASSOCIATE PROFESSOR OF MEDICINE Office Visit [facility] Nephrology [address] [facility] [place] [facility] 5th [place] [address] [place] [id number] Radha Bartholomew MD Pre-transplant evaluation for kidney transplant (Primary Dx); End stage renal disease (CMS/HCC) ([facility]); Status post coronary artery bypass grafting; Status post aortic valve replacement; Type 1 diabetes mellitus with chronic kidney disease on chronic dialysis (CMS/HCC) ([facility]); CAD in sokaogon artery; Paroxysmal atrial fibrillation (CMS/HCC) (HCC) 07/26/2024 Telephone [facility] Transplant Kidney [address] [facility] [address] Mailstop [id number] [place] [address] Hollyjessica Elsie 07/26/2024 Orders Only [facility] Transplant Kidney [address] [facility] [address] Mailstop [phone] [place] [address] Alondra Lambert, RN ESRD (end stage renal disease) (CMS/HCC) (HCC) (Primary Dx) 07/26/2024 Telephone [facility] Transplant Kidney [address] [facility] [address] Mailstop [id number] [place] [address] Alondra Lambert RN 07/22/2024 Telephone [facility] Transplant Kidney [address] [facility] [address] Mailstop [phone] [place] [address] Chris Richard 06/28/2024 Telephone [facility] Transplant Kidney [address] [facility] [address] Mailstop 02-10-175 [place] [address] Chris Richard 06/24/2024 Telephone [facility] Transplant Kidney [address] [facility] [address] Mailstop [phone] [place] [address] Chris Richard 06/11/2024 Orders Only [facility] Medical Group Cardiology [address] [place] [address] Karen Barnes NP from Last [...] PUMP: Continue Omnipod 5 insulin pump with NextWidgets G6 CGM at home settings: TIME BASAL [...] 1 tablet (25 mcg total) by mouth or scrub tech before breakfast 30 tablet 1 11/04/19 24 [...] mg SL tablet 12/28/19 18 Active peg 806-ynhwytkaimbr-md ycerin (ARTIFICAL TEARS) 1-0.2-0.2 % ophthalmic solution 1 drop 4 (four) times a day 07/07/20 22 Active potassium chloride ER 20 mEq CR tablet Active Active Problems Problem Noted Date Diagnosed Date End stage renal disease ([facility]) 07/29/2024 Nonrheumatic aortic valve stenosis 11/22/2023 Status post aortic valve replacement 11/22/2023 Status post coronary artery bypass grafting 10/2023 CAD in sokaogon artery 10/13/2023 Anemia 06/22/2022 Assessment & Plan (06/29/2022 10:12 AM ASSOCIATE PROFESSOR OF MEDICINE): Stable, likely 2/2 anemia from ESRD, no [...] Hb. ESRD (end stage renal disease) ([facility]) 022 Assessment & Plan (06/29/2022 10:12 AM ASSOCIATE PROFESSOR OF MEDICINE): - Renal consulted, s/p CRRT in the ICU now back on PD. Tolerated well and nephrology following - Trialysis catheter removed - Continue vitamins for renal bone mineral disease. Assessment & Plan (06/28/2022 3:29 PM ASSOCIATE PROFESSOR OF MEDICINE): - Renal consulted, s/p CRRT in the [...] 06/22/2022 Assessment & Plan (06/29/2022 10:12 AM ASSOCIATE PROFESSOR OF MEDICINE): C/b cardiogenic shock requiring impella in the setting of cath and AHRF 2/2 pulmonary edema, now resolved. TTE demonstrating recovered EF 65% with grade I diastolic dysfunction. - metop as above - continue low dose losartan 12.5mg daily, ok per nephro. Tolerating well - volume management per PD Assessment & Plan (06/28/2022 3:29 PM ASSOCIATE PROFESSOR OF MEDICINE): C/b cardiogenic shock requiring impella in the [...] start GDMT per cardiology. Atrial fibrillation ([facility]) 06/22/2022 Assessment & Plan (06/29/2022 10:12 AM ASSOCIATE PROFESSOR OF MEDICINE): Converted to NSR overnight on 06/24. CHADsVASc of 4 not on anticoagulation prior to admission. - cardiology consulted - recommended ongoing rate control - holding off on a/c with high risk for bleeding while on DAPT - reduced metop to 25mg BID in the setting of hypotension, HR 70s NSR Assessment & Plan (06/28/2022 3:30 PM ASSOCIATE PROFESSOR OF MEDICINE): Converted to NSR overnight on 06/24. CHADsVASc [...] NSTEMI (non-ST elevated myocardial infarction) ( [facility]) 06/22/2022 Assessment & Plan (06/29/2022 10:11 AM ASSOCIATE PROFESSOR OF MEDICINE): With recurrent chest pain post-cath. He has [...] today Assessment & Plan (06/28/2022 3:30 PM ASSOCIATE PROFESSOR OF MEDICINE): With recurrent chest pain post-cath. He has [...] 06/22/2022 Assessment & Plan (06/29/2022 10:11 AM ASSOCIATE PROFESSOR OF MEDICINE): Secondary to NSTEMI, s/p Impella since removed on 06/10. Resolved. Assessment & Plan (06/23/2022 4:55 PM CDT): Secondary to NSTEMI, s/p Impella since removed on 06/10. Resolved. Assessment & Plan (06/22/2022 8:22 PM CDT): -Secondary to NSTEMI, s/p Impella since removed on 06/10. 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) 05/23/2017 History of coronary artery stent placement 05/23 Macular ischemia 03/17/2017 Combined forms of age-related cataract 7 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 03/17/2017 Type 2 diabetes mellitus treated with insulin ([facility]) 03/25/2015 Overview (11/25/2016): Insulin treated Type II diabetes mellitus Chronic kidney disease, stage III (moderate) 12/2014 Overview (11/25/2016): Chronic kidney disease, stage 3 Benign essential hypertension 03/25/2015 Overview (11/25/2016): Benign essential HTN Hyperlipidemia 03/25/2015 Overview (11/25/2016): Hyperlipidemia Pain of finger 11/24/2014 Hypersomnia 11/22/2013 Chronic kidney disease 11/22/2013 Hypertension 01/18/2013 Type 1 diabetes mellitus 01/18/2013 Assessment & Plan (06/29/2022 10:12 AM ASSOCIATE PROFESSOR OF MEDICINE): A1c well controlled on admission. He uses [...] session Assessment & Plan (06/28/2022 3:28 PM ASSOCIATE PROFESSOR OF MEDICINE): A1c well controlled on admission. He uses [...] from doctor or pharmacy Never 12/01/2023 [facility] Utilities Answer Date Recorded In the past 12 months has th e [employer], gas, oil, or water company threatened to [...] week 08/01/2024 How often do you attend anglican or sabianism serv ices? Never 08/01/2024 Do you belong [...] in a correction (including now)? No 10/16/2023 Housing Stability Vital Sign Answer Rubens e Recorded In the last 12 months, was t here a time when you were not able to pay the mortgage or rent on time? No 08/01/2024 In the past 12 months, how m any times have you moved where you were living? 1 08/01/2024 At any time in the past 12 m [facility], were you homeless or living in a correction (including now)? No 08/01/2024 Personal Safety Answer Date Recorded Have you ever been in or are you currently in a harmful physical or emotional relationship or is someone making you feel afraid or unsafe? 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 Male 3:42 AM ASSOCIATE PROFESSOR OF MEDICINE Gender Identity Not on file Sexual Orientation Not on file Last Filed Vital Signs Vital Sign Reading Time Taken Comments Blood Pressure 122/75 07/29/2024 1:00 PM ASSOCIATE PROFESSOR OF MEDICINE Pulse 116 07/29/2024 1:00 PM ASSOCIATE PROFESSOR OF MEDICINE Temperature 36.8 ??C (98.2 ??F) 07/29/2024 1:00 PM CS T Respiratory Rate 16 12/01/2023 11:1 3 AM CDT Oxygen Saturation 96% 12/01/2023 11: 13 AM CDT Inhaled Oxygen Concentration - - Weight 121.2 kg (267 lb 1.6 oz) 07/29/2024 1:00 PM ASSOCIATE PROFESSOR OF MEDICINE Height 177.8 cm (5' 10 ) 07/29/2024 1:00 PM ASSOCIATE PROFESSOR OF MEDICINE Body Mass Index 38.32 07/29/2024 1:00 PM ASSOCIATE PROFESSOR OF MEDICINE Plan of Treatment Not on file Medical Devices Implanted Type Area Job Change Crew Member Device Identifier Shelf Expiration Date Model / Serial / Lot Kyle Vascular Device Clsr Perclose Prostyle Sut-Mediatd Closure-Repair Sys 13914-21 - [id number] Implanted:Qty: 1 on 06/10/2022 by Champ Osborne MD PhD at [facility] Other - see comments Right: Femoral [employer] 01/19/2024 [id number] / / [id number] [employer] [employer] Mary Synergy Xd Monorail 2.5mm 48mm 144cm Delivery System 1 Access [id number] - [id number] Implanted:Qty: 1 on 06/07/2022 by Champ Osborne MD PhD at [facility] Stent [employer] [employer] 10/27/2023 [id number] / / [id number] [employer] Synergy Xd Monorail 3mm 24mm 144cm Delivery System 1 Access Port [id number] - [id number] Implanted:Qty: 1 on 06/07/2022 by Champ Osborne MD PhD at [facility] Stent [employer] 07/28/2023 [id number] / / [id number] [employer] [employer] Synergy Xd Monorail 2.5mm 12mm 144cm Delivery System 1 Access [id number] - [id number] - [id number] Implanted:Qty: 1 on 06/07/2022 by Champ Osborne MD PhD at [facility] Stent [employer] 05/03/2023 [id number] / [id number] / [id number] Dai Mary [id number] Device Closure Angio-Seal Vip Bondek-Plus Polyglyd L70 Cm Od6 Fr Odsec.035 In Vascular - [id number] Implanted:Qty: 1 on 01/21/2021 by Hamlet Ortega Jr., MD at [facility] Left: Groin [employer] Mary [id number] / / Kyle Vascular Device Clsr Perclose Prostyle Sut-Mediatd Closure-Repair Sys 67092-74 - [id number] Implanted:Qty: 1 on 06/07/2022 by Champ Osborne MD PhD at [facility] [employer] 01/19/202468846-06 / [id number] [employer] Device Clsr Perclose Prostyle Sut-Mediatd Closure-Repair Sys 76538-16 - [id number] Implanted:Qty: 1 on 06/07/2022 by Champ Osborne MD PhD at [facility] Kyle [employer] 11/19/202337327-84 / [id number] Bard Access Systems Power-Trialysis 13fr 30cm 3 Lumen Kink Resistance Symmetric Tip [id number] - [id number] Implanted:Qty: 1 on 06/07/2022 by Champ Osborne MD PhD at [facility] Right: Jugular Ramirez Oliver 07/20/2024 [id number] / / [id number] [employer] Impella Cp Percutaneous Left Ventricular Assist Device 0895-4551 - [id number] Implanted:Qty: 1 on 06/07/2022 by Champ Osborne MD PhD at [facility] Left: Ventricle [employer] [id number] / / Bard Access Systems Power-Trialysis 13fr 20cm 3 Lumen Short Term Dialysis Straight [id number] - [id number] Implanted:Qty: 1 on 06/18/2022 at [facility] Ramirez Oliver 07/20/2024 [id number] / / [id number] Rl [employer] Inc Screw Bone Slf Drl Full Thread Locking 3.5x14mm Ti 100.035.14 - [id number] Implanted:Qty: 6 on 10/17/2023 by Lorne Mcnulty MD at [facility] N/A: Sternum [employer] Inc 100.035.1 4 / / Rl [employer] Inc Plate Bone Low Profile 6 Hole H Shape Sternum Ti 115.102.06 - [id number] Implanted:Qty: 2 on 10/17/2023 by Lorne Mcnulty MD at [facility] N/A: Sternum [employer] 115.102.0 6 / / Rl [employer] Plate Bone Low Profile 6 Hole O Shape Sternum Ti 115.104.06 - [id number] Implanted:Qty: 1 on 10/17/2023 by Lorne Mcnulty MD at [facility] N/A: Sternum [employer] 115.104.0 6 / / On-X Intrnl Valve Coronary Aortic Mechanical On X 25mm Onxane-25 - [id number] - [id number] Implanted:Qty: 1 on 10/17/2023 by Lorne Mcnulty MD at [facility] N/A: Heart On-X Intrnl 01/22/2028 ONXANE-25 / [id number] / Rl [employer] Inc Screw Bone Slf Drl Full Thread Locking 3.5x18mm Ti 100.035.18 - [id number] Implanted:Qty: 12 on 10/17/2023 by Lorne Mcnulty MD at [facility] N/A: Sternum [employer] 100.035.1 8 / / Explanted Type Area Job Change Crew Member Device Identifier Shelf Expiration Date Model / Serial / Lot Bard Peripheral Vascular Bard .25x.25in Alvin Thk1.65mm Square [employer] Ptfe [id number] - [id number] Explanted:Qty: 1 on 10/17/2023 by Lorne Mcnulty MD at [facility] N/A: Heart Bard Peripheral Vascular 05/18/2026 [id number] / / Procedures Procedure Name Priority Date/Time Associated Diagnosis Comments HLA SOLID ORGAN TYPING REPORT 08/02/2024 9:04 AM ASSOCIATE PROFESSOR OF MEDICINE SIX MINUTE WALK Routine 07/29/2024 2:46 PM ASSOCIATE PROFESSOR OF MEDICINE End stage renal disease (CMS/HCC) (HCC) CT ABDOMEN PELVIS WO CONTRAST Schedule Routine, Read Routine (OP Routine) 07/29/2024 12:43 PM ASSOCIATE PROFESSOR OF MEDICINE End stage renal disease (CMS/HCC) (HCC) XR ORTHOPANTOGRAM/PANOR EX Schedule Routine, Read Routine (OP Routine) 07/29/2024 11:44 AM ASSOCIATE PROFESSOR OF MEDICINE End stage renal disease (CMS/HCC) (HCC) TYPE AND SCREEN Routine 07/29/2024 11:23 AM ASSOCIATE PROFESSOR OF MEDICINE End stage renal disease (CMS/HCC) (HCC) ECG 12-LEAD Routine 07/29/2024 11:14 AM ASSOCIATE PROFESSOR OF MEDICINE End stage renal disease (CMS/HCC) (HCC) ABO/RH Routine 07/29/2024 11:13 AM ASSOCIATE PROFESSOR OF MEDICINE EGFR Routine 07/29/2024 11:01 AM ASSOCIATE PROFESSOR OF MEDICINE End stage renal disease (CMS/HCC) (HCC) DIFFERENTIAL AUTO Routine 07/29/2024 11: 01 AM ASSOCIATE PROFESSOR OF MEDICINE End stage renal disease (CMS/HCC) (HCC) CBC WITH AUTO DIFFERENTIAL Routine 07/29/2024 11:01 AM ASSOCIATE PROFESSOR OF MEDICINE End stage renal disease (CMS/HCC) (HCC) COMPREHENSIVE METABOLIC PANEL Routine 07/29/2024 11:01 AM ASSOCIATE PROFESSOR OF MEDICINE End stage renal disease (CMS/HCC) (HCC) CREATININE, URINE, RANDOM Routine 07/29/2024 11:01 AM ASSOCIATE PROFESSOR OF MEDICINE End stage renal disease (CMS/HCC) (HCC) FERRITIN Routine 07/29/2024 11:01 AM ASSOCIATE PROFESSOR OF MEDICINE End stage renal disease (CMS/HCC) (HCC) GAMMA GT Routine 07/29/2024 11:01 AM ASSOCIATE PROFESSOR OF MEDICINE End stage renal disease (CMS/HCC) (HCC) HEMOGLOBIN A1C Routine 07/29/2024 11:01 AM ASSOCIATE PROFESSOR OF MEDICINE End stage renal disease (CMS/HCC) (HCC) IRON PROFILE W/ IBC Routine 07/29/2024 1 1:01 AM ASSOCIATE PROFESSOR OF MEDICINE End stage renal disease (CMS/HCC) (HCC) LIPID PANEL Routine 07/29/2024 11:01 AM ASSOCIATE PROFESSOR OF MEDICINE End stage renal disease (CMS/HCC) (HCC) PTH Routine 07/29/2024 11:01 AM ASSOCIATE PROFESSOR OF MEDICINE End stage renal disease (CMS/HCC) (HCC) APTT Routine 07/29/2024 11:01 AM ASSOCIATE PROFESSOR OF MEDICINE End stage renal disease (CMS/HCC) (HCC) PHOSPHORUS Routine 07/29/2024 11:01 AM ASSOCIATE PROFESSOR OF MEDICINE End stage renal disease (CMS/HCC) (HCC) PROTEIN, URINE, RANDOM Routine 07/29/2024 11:01 AM ASSOCIATE PROFESSOR OF MEDICINE End stage renal disease (CMS/HCC) (HCC) PROTIME-INR Routine 07/29/2024 11:01 AM ASSOCIATE PROFESSOR OF MEDICINE End stage renal disease (CMS/HCC) (HCC) URIC ACID Routine 07/29/2024 11:01 AM ASSOCIATE PROFESSOR OF MEDICINE End stage renal disease (CMS/HCC) (HCC) PSA SCREEN Routine 07/29/2024 11:01 AM ASSOCIATE PROFESSOR OF MEDICINE End stage renal disease (CMS/HCC) (HCC) LR HLA TYPING (CLASS I AND CLASS II) Routine 07/29/2024 11:01 AM ASSOCIATE PROFESSOR OF MEDICINE End stage renal disease (CMS/HCC) (HCC) HLA CLASS I DNA (ABC) RECIPIENT Routine 07/29/2024 11:01 AM ASSOCIATE PROFESSOR OF MEDICINE End stage renal disease (CMS/HCC) (HCC) HLA CLASS II DNA (DR, DQ, DP) RECIPIENT Routine 07/29/2024 11:01 AM ASSOCIATE PROFESSOR OF MEDICINE End stage renal disease (CMS/HCC) (HCC) HLA ANTIBODY SCREEN - SAB (CLASS I AND CLASS II) Routine 07/29/2024 11:01 AM ASSOCIATE PROFESSOR OF MEDICINE End stage renal disease (CMS/HCC) (HCC) HLA ANTIBODY SCREEN BY SINGLE ANTIGEN Routine 07/29/2024 11:01 AM ASSOCIATE PROFESSOR OF MEDICINE End stage renal disease (CMS/HCC) (HCC) CMV, IGG Routine 07/29/2024 11:01 AM ASSOCIATE PROFESSOR OF MEDICINE End stage renal disease (CMS/HCC) (HCC) MADIHA-MORRIS VIRUS VCA ANTIBODY PANEL Routine 07/29/2024 11:01 AM ASSOCIATE PROFESSOR OF MEDICINE End stage renal disease (CMS/HCC) (HCC) HIV 1/2 ANTIBODY PLUS P24 ANTIGEN Routine 07/29/2024 11:01 AM ASSOCIATE PROFESSOR OF MEDICINE End stage renal disease (CMS/HCC) (HCC) HSV 1 ANTIBODY, IGG Routine 07/29/2024 1 1:01 AM ASSOCIATE PROFESSOR OF MEDICINE End stage renal disease (CMS/HCC) (HCC) HSV 2 ANTIBODY, IGG Routine 07/29/2024 1 1:01 AM ASSOCIATE PROFESSOR OF MEDICINE End stage renal disease (CMS/HCC) (HCC) HEPATITIS B CORE ANTIBODY, TOTAL Routine 07/29/2024 11:01 AM ASSOCIATE PROFESSOR OF MEDICINE End stage renal disease (CMS/HCC) (HCC) HEPATITIS B SURFACE ANTIBODY (IMMUNE STATUS) Routine 07/29/2024 11:01 AM ASSOCIATE PROFESSOR OF MEDICINE End stage renal disease (CMS/HCC) (HCC) HEPATITIS B SURFACE ANTIGEN Routine 07/29/2024 11:01 AM ASSOCIATE PROFESSOR OF MEDICINE End stage renal disease (CMS/HCC) (HCC) HEPATITIS C ANTIBODY Routine 07/29/2024 11:01 AM ASSOCIATE PROFESSOR OF MEDICINE End stage renal disease (CMS/HCC) (HCC) RPR Routine 07/29/2024 11:01 AM ASSOCIATE PROFESSOR OF MEDICINE End stage renal disease (CMS/HCC) (HCC) VARICELLA ZOSTER ANTIBODY, IGG Routine 07/29/2024 11:01 AM ASSOCIATE PROFESSOR OF MEDICINE End stage renal disease (CMS/HCC) (HCC) URINALYSIS, MICROSCOPIC ONLY Routine 07/29/2024 10:53 AM ASSOCIATE PROFESSOR OF MEDICINE End stage renal disease (CMS/HCC) (HCC) OXALATE Routine 07/29/2024 10:53 AM ASSOCIATE PROFESSOR OF MEDICINE ESRD (end stage renal disease) (CMS/HCC) (HCC) URINALYSIS AND REFLEX TO MICROSCOPIC Routine 07/29/2024 10:53 AM ASSOCIATE PROFESSOR OF MEDICINE End stage renal disease (CMS/HCC) (HCC) CARDIOLOGY DOCUMENT SCAN Routine 06/07/2024 11:10 AM CDT TSH Routine 10/27/2023 2:30 AM ASSOCIATE PROFESSOR OF MEDICINE from Last 3 Months or Most Recently Relevant to Health Maintenance Results * HLA Solid Organ Typing Report (08/02/2024 9:04 AM ASSOCIATE PROFESSOR OF MEDICINE) [facility] Jaylen King MD LAB GENETIC TESTIN G Final Result * Six Minute Walk - (07/29/2024 2:46 PM ASSOCIATE PROFESSOR OF MEDICINE) Anatomical Region Laterality Modality PFT Narrative 07/29/2024 3:52 PM ASSOCIATE PROFESSOR OF MEDICINE Table formatting from the original result was not included. Davey Pickard V., BODY SHOP TECHNICIAN on 07/29/2024 ??2:45 PM Table formatting from the original note was not included. 6 MINUTE WALK RESULTS Name: Juvenal Daigle Jr : 1970 DOS: 07/29/2024 Diagnosis: ESRD/KTE BODY SHOP TECHNICIAN performed walk: Carmenza Pickard Rest: 1 [...] at rest and with exercise [facility] Jaylen King MD RESPIRATORY CARE O RDERASANDRA Final Result * CT Abdomen Pelvis WO Contrast (07/29/2024 12:43 PM ASSOCIATE PROFESSOR OF MEDICINE) Anatomical Region Laterality Modality Body N/A Computed Tomogra phy 07/29/2024 1:04 PM ASSOCIATE PROFESSOR OF MEDICINE Impressions 07/29/2024 1:04 PM ASSOCIATE PROFESSOR OF MEDICINE 1. ??Moderate discontinuous atherosclerotic calcifications involve the [...] Teresa Rivera M.D. 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 Electronically signed by: Julio Pinedo M.D. Narrative 07/29/2024 12:59 PM ASSOCIATE PROFESSOR OF MEDICINE EXAMINATION: XR ORTHOPANTOGRAM/PANOREX HISTORY: Kidney Transplant Evaluation [...] * Type and screen (07/29/2024 11:23 AM ASSOCIATE PROFESSOR OF MEDICINE) Maribel, indirect Negative ABO Rh A Positive [facility] Blood 07/29/2024 11:2 3 AM ASSOCIATE PROFESSOR OF MEDICINE 07/29/2024 11:43 AM ASSOCIATE PROFESSOR OF MEDICINE Narrative [facility] - 07/29/2024 12:45 PM ASSOCIATE PROFESSOR OF MEDICINE Please draw the ABO and the Type and Screen as two separate blood draws with each stamped with the two different times stamps as this is a regulatory requirement for this patient to be listed for Kidney Transplant. ??This lab is being obtained as part of a Kidney transplant evaluation, is time sensitive, and should only be drawn during the evaluation visit at [facility] Lab. Has the patient had Daratumumab or Isatuximab in the past 6 months?->Unknown Jossie King MD LAB BLOOD BANK ERNESTO T ORDERABLES Final Result [facility] Department [place] [address] * ECG 12 lead (07/29/2024 11:14 AM ASSOCIATE PROFESSOR OF MEDICINE) Ventricular Rate EKG/Min 117 BPM [facility] Atrial Rate 117 BPM [facility] IN-Interval (MSEC) 144 ms [facility] QRS-Interval (MSEC) 126 ms [facility] QT-Interval (MSEC) 366 ms [facility] QTc 510 ms [facility] R Ararat -40 degrees [facility] T Ararat 147 degrees [facility] Diagnosis Poor data quality, [...] Inferior leads Confirmed by FERDINAND SAL M.D ([id number]) on 07/29/2024 3:38:41 PM [facility] 07/29/2024 11:1 4 AM ASSOCIATE PROFESSOR OF MEDICINE 07/29/2024 3:38 PM ASSOCIATE PROFESSOR OF MEDICINE Jossie King MD ECG ORDERABLES Fi nal Result Performing Organization Address City/[facility] Co de Phone Number [facility] * ABO/Rh (07/29/2024 11:13 AM ASSOCIATE PROFESSOR OF MEDICINE) ABO Rh A Positive Blood 07/29/2024 11:1 3 AM ASSOCIATE PROFESSOR OF MEDICINE 07/29/2024 2:45 PM ASSOCIATE PROFESSOR OF MEDICINE Jossie King MD LAB BLOOD BANK ERNESTO T ORDERABLES Final Result Performing Organization Address City/[facility] Co de Phone Number [facility] Department [place] [address] * LR HLA Typing (Class I and Class II) (07/29/2024 11:01 AM ASSOCIATE PROFESSOR OF MEDICINE) r-SSO [facility] A First Allele A*03 HISTOTRAC [...] 07/30/24 [facility] Blood 07/29/2024 11:0 1 AM ASSOCIATE PROFESSOR OF MEDICINE 08/02/2024 9:03 AM ASSOCIATE PROFESSOR OF MEDICINE Narrative [facility] - 08/02/2024 9:03 AM ASSOCIATE PROFESSOR OF MEDICINE DNA was extracted from whole blood or buccal cell specimens, and relevant genomic regions were amplified by polymerase chain reactions (PCR). HLA typing was performed on PCR amplicons using reverse sequence-specific oligonucleotide (r-SSO) and/or sequence-specific primers (SSP) based techniques. r-SSO and SSP are FDA approved as IVD tests and validated by the [facility]. Testing performed at the [facility], [address] [place] [address], 5th floor, [place], [address]. [facility] # [id number]. Dorothy Meade, Ph.D., Kardex Clerk, HLA Laboratory Rell Samuels M.D., Ph.D., Surgical Supply Assistant, HLA Laboratory Licha Nieto, Ph.D., CLIA Surgical Supply Assistant, [facility] Clinical Laboratories Current methodology comment last revised on 04/25/17. us Jossie King MD LAB BLOOD ORDERABL ES Final Result [facility] * Collection Task for HLA Typing 1 (07/29/2024 11:01 AM ASSOCIATE PROFESSOR OF MEDICINE) HLA Class I DNA (ABC) Recipient Received Blood 07/29/2024 11:0 1 AM ASSOCIATE PROFESSOR OF MEDICINE 07/29/2024 11:56 AM ASSOCIATE PROFESSOR OF MEDICINE Jossie King MD LAB BLOOD ORDERABL ES Final Result Performing Organization Address [facility] de Phone Number ALESSANDRA [facility] [place] [address] * Collection Task for HLA Antibody Screen (07/29/2024 11:01 AM ASSOCIATE PROFESSOR OF MEDICINE) [facility] HLA Antibody Screen By Single Antigen Received Blood 07/29/2024 11:0 1 AM ASSOCIATE PROFESSOR OF MEDICINE 07/29/2024 11:56 AM ASSOCIATE PROFESSOR OF MEDICINE Jossie King MD LAB BLOOD ORDERABL ES Final Result Performing Organization Address [facility] [place] [address] * Collection Task for HLA Typing 2, Patient (07/29/2024 11:01 AM ASSOCIATE PROFESSOR OF MEDICINE) [facility] HLA Class II DNA (DR, DQ, DP) Recipient Received Blood 07/29/2024 11:0 1 AM ASSOCIATE PROFESSOR OF MEDICINE 07/29/2024 11:56 AM ASSOCIATE PROFESSOR OF MEDICINE Jossie King MD LAB BLOOD ORDERABL ES Final Result Performing Organization Address [facility] [place] [address] * (ABNORMAL) eGFR (07/29/2024 11:01 AM ASSOCIATE PROFESSOR OF MEDICINE) [facility] eGFR 7(L) >=60 mL/min/1. 73 m2 [...] reviewed 2021. Blood 07/29/2024 11:0 1 AM ASSOCIATE PROFESSOR OF MEDICINE 07/29/2024 11:33 AM ASSOCIATE PROFESSOR OF MEDICINE us Jossie King MD LAB BLOOD ORDERABL ES Final Result [facility] Department [place] [address] * Differential, auto (07/29/2024 11:01 AM ASSOCIATE PROFESSOR OF MEDICINE) Pathologist [facility] Neutrophil abs 3.1 1.5 - 6.5 K/cumm Imm gran abs 0.0 0.0 - 0.1 K/cumm [facility] Lymphocyte abs 1.1 0.8 - 3.3 K/cumm [facility] Monocyte abs 0.7 0.2 - 0.8 K/cumm [facility] Eosinophil abs 0.2 0.0 - 0.5 K/cumm [facility] Basophil abs 0.0 0.0 - 0.1 K/cumm [facility] Neutrophil pct 60.3 % [facility] Comment: Interpretive Data Percent cell count reference ranges are not reported, since discordance with absolute values may lead to misinterpretation of CBC data. Current Interpretive Data was last revised on 2017. Imm gran pct 0.6 % [facility] Comment: Interpretive Data Percent cell count reference ranges are not reported, since discordance with absolute values may lead to misinterpretation of CBC data. Current Interpretive Data was last revised on 2017. Lymphocyte pct 21.4 % [facility] Comment: Interpretive Data Percent cell count reference ranges are not reported, since discordance with absolute values may lead to misinterpretation of CBC data. Current Interpretive Data was last revised on 2017. Monocyte pct 13.7 % [facility] Comment: Interpretive Data Percent cell count reference ranges are not reported, since discordance with absolute values may lead to misinterpretation of CBC data. Current Interpretive Data was last revised on 2017. Eosinophil pct 3.2 % [facility] Comment: Interpretive Data Percent cell count reference ranges are not reported, since discordance with absolute values may lead to misinterpretation of CBC data. Current Interpretive Data was last revised on 2017. Basophil pct 0.8 % [facility] Comment: Interpretive Data Percent cell count reference ranges are not reported, since discordance with absolute values may lead to misinterpretation of CBC data. Current Interpretive Data was last revised on 2017. Blood 07/29/2024 11:0 1 AM ASSOCIATE PROFESSOR OF MEDICINE 07/29/2024 11:34 AM ASSOCIATE PROFESSOR OF MEDICINE us Jossie King MD LAB BLOOD ORDERABL ES Final Result Performing Organization Address City/State/[facility] Co de Phone Number [facility] Department [place] [address] * PSA screen (07/29/2024 11:01 AM ASSOCIATE PROFESSOR OF MEDICINE) PSA-Total 0.55 <=3.90 ng/mL Comment: Interpretive Data [...] revised 21. Blood 07/29/2024 11:0 1 AM ASSOCIATE PROFESSOR OF MEDICINE 07/29/2024 11:33 AM ASSOCIATE PROFESSOR OF MEDICINE Narrative [facility] - 07/29/2024 12:39 PM ASSOCIATE PROFESSOR OF MEDICINE This lab is being obtained as part of a Kidney transplant evaluation, is time sensitive, and should only be drawn during the evaluation visit at [address] Jossie King MD LAB BLOOD ORDERABL ES Final Result Performing Organization Address City/State/[facility] Co de Phone Number [facility] Department [place] [address] * (ABNORMAL) Iron profile w/ IBC (07/29/2024 11:01 AM ASSOCIATE PROFESSOR OF MEDICINE) Iron 62 50 - 150 mcg/dL TIBC 208(L) 250 - 400 mcg/dL [facility] Transferrin saturation 30 20 - 50 % [facility] Blood 07/29/2024 11:0 1 AM ASSOCIATE PROFESSOR OF MEDICINE 07/29/2024 11:33 AM ASSOCIATE PROFESSOR OF MEDICINE Narrative [facility] - 07/29/2024 12:10 PM ASSOCIATE PROFESSOR OF MEDICINE This lab is being obtained as part of a Kidney transplant evaluation, is time sensitive, and should only be drawn during the evaluation visit at [address] Jossie King MD LAB BLOOD ORDERABL ES Final Result Performing Organization Address City/State/[facility] Co de Phone Number [facility] [place] [address] * HIV 1/2 Antibody plus p24 Antigen Blood (07/29/2024 11:01 AM ASSOCIATE PROFESSOR OF MEDICINE) Pathologist [facility] HIV 1/2 ab + p24 ag Nonreactive Nonreactive Comment:Nonreactive for HIV- 1 antigen and HIV-1/HIV-2 antibodies. No laboratory evidence of HIV infection. If acute HIV infection is suspected, consider testing for HIV-1 RNA. Current interpretive data was last revised on 22. Blood 07/29/2024 11:0 1 AM ASSOCIATE PROFESSOR OF MEDICINE 07/29/2024 11:32 AM ASSOCIATE PROFESSOR OF MEDICINE Narrative [facility] 07/29/2024 12:13 PM ASSOCIATE PROFESSOR OF MEDICINE This lab is being obtained as part of a Kidney transplant evaluation, is time sensitive, and should only be drawn during the evaluation visit at [facility] 3C Lab. Jossie King MD LAB MICROBIOLOGY - GENERAL ORDERABLES Final Result Performing Organization Address [facility] de Phone Number [facility] [place] [address] * (ABNORMAL) CMV, IgG Blood (07/29/2024 11:01 AM ASSOCIATE PROFESSOR OF MEDICINE) [facility] CMV IgG Positive( A) Negative Comment: [...] CMV infection. Blood 07/29/2024 11:0 1 AM ASSOCIATE PROFESSOR OF MEDICINE 07/29/2024 11:33 AM ASSOCIATE PROFESSOR OF MEDICINE Narrative [facility] - 07/29/2024 1:44 PM ASSOCIATE PROFESSOR OF MEDICINE This lab is being obtained as part of a Kidney transplant evaluation, is time sensitive, and should only be drawn during the evaluation visit at [facility] 3CAM Lab. Jossie King MD LAB MICROBIOLOGY - GENERAL ORDERABLES Final Result AL[facility]DRA [facility] Department [place] [address] * HLA Antibody Screen - SAB (Class I and Class II) (07/29/2024 11:01 AM ASSOCIATE PROFESSOR OF MEDICINE) Class I Treatment EDTA [facility] Class I [...] DR52 [facility] Blood 07/29/2024 11:0 1 AM ASSOCIATE PROFESSOR OF MEDICINE 08/02/2024 9:46 AM ASSOCIATE PROFESSOR OF MEDICINE Narrative [facility] - 08/02/2024 9:46 AM ASSOCIATE PROFESSOR OF MEDICINE Single-antigen HLA antibody screen is performed on serum samples using a method developed and validated by the [facility] HLA laboratory based on an FDA-approved IVD kit (LABScreen Single-Antigen, [employer], [place], [place]). All patient serum samples are pretreated with EDTA before the screen to prevent complement interference. Additional serum treatments, such as adsorption and DTT treatment, may be performed as indicated. ??Interpretive comments: Low risk: MFI [id number]. Moderate risk: MFI [id number]. Increased risk: MFI >/= 5000. The presence [...] antigens to avoid. Testing performed at the [facility] Laboratory, [address] [place] [address], 5th floor, [place], [address]. CLIA # [id number]. Dorothy Meade, Ph.D., Kardex Clerk, HLA Laboratory Rell Samuels M.D., Ph.D., Surgical Supply Assistant, HLA Laboratory Licha Nieto, Ph.D., CLIA Surgical Supply Assistant, [facility] Clinical Laboratories Current methodology and interpretive comments last revised on 09/15/2022. us Jossie King MD LAB BLOOD ORDERABL ES Final Result [facility] * (ABNORMAL) CBC with auto differential (07/29/2024 11:01 AM ASSOCIATE PROFESSOR OF MEDICINE) WBC 5.1 3.8 - 9.9 K/cumm Hgb 11.5(L) 13.0 - 17.5 g/dL [facility] Hct 34.4(L) 38.9 - 50.3 % [facility] Plt 208 150 - 400 K/cumm [facility] MPV 10.8 9.1 - 12.3 fL [facility] RBC 3.76(L) 4.30 - 5.80 M/cumm [facility] MCV 91.5 81.3 - 96.4 fL [facility] MCH 30.6 27.1 - 33.3 pg [facility] MCHC 33.4 32.3 - 35.7 g/dL [facility] RDW CV 14.3 11.1 - 14.9 % [facility] RDW SD 47.9 35.7 - 48.1 fL [facility] NRBC abs 0.00 0.00 - 0.01 K/cumm [facility] Blood 07/29/2024 11:0 1 AM ASSOCIATE PROFESSOR OF MEDICINE 07/29/2024 11:34 AM ASSOCIATE PROFESSOR OF MEDICINE Narrative [facility] - 07/29/2024 11:45 AM ASSOCIATE PROFESSOR OF MEDICINE This lab is being obtained as part of a Kidney transplant evaluation, is time sensitive, and should only be drawn during the evaluation visit at [address] Jossie King MD LAB BLOOD ORDERABL ES Final Result Performing Organization Address [facility] Co de Phone Number [facility] [place] [address] * Hepatitis C antibody Blood (07/29/2024 11:01 AM ASSOCIATE PROFESSOR OF MEDICINE) Pathologist [facility] Hep C Ab Nonreactive Nonreactive Comment:Antibodies to HCV no t detected. Does NOT exclude the possibility of recent exposure to HCV. Current interpretive data was last revised on 22 Blood 07/29/2024 11:0 1 AM ASSOCIATE PROFESSOR OF MEDICINE 07/29/2024 11:32 AM ASSOCIATE PROFESSOR OF MEDICINE Narrative [facility] - 07/29/2024 12:47 PM ASSOCIATE PROFESSOR OF MEDICINE This lab is being obtained as part of a Kidney transplant evaluation, is time sensitive, and should only be drawn during the evaluation visit at [address] Jossie King MD LAB MICROBIOLOGY - GENERAL ORDERABLES Final Result Performing Organization Address City/[facility]/ZIP Co de Phone Number [facility] [place] [address] * (ABNORMAL) Madiha-Morris virus (EBV) antibody panel Blood (07/29/2024 11:01 AM ASSOCIATE PROFESSOR OF MEDICINE) Pathologist [facility] EBV nuclear Ab Positive(A) Negative Comment:Indicates the presen ce of detectable IgG antibody to EBV Nuclear Antigen. EBV VCA IgG Positive(A) Negative [facility] Comment:Indicates the presen ce of antibody; 90% of the adult population will have been infected with EBV sometime in the past. EBV VCA IgM Negative Negative [facility] Comment:No detectable IgM an tibody to EBV-VCA. A negative result indicates no current infection with EBV. If clinical suspicion of acute EBV infection is present, testing should be repeated after one week. EBV interp Past Infection [facility] Blood 07/29/2024 11:0 1 AM ASSOCIATE PROFESSOR OF MEDICINE 07/29/2024 11:33 AM ASSOCIATE PROFESSOR OF MEDICINE Narrative [facility] - 07/29/2024 1:43 PM ASSOCIATE PROFESSOR OF MEDICINE This lab is being obtained as part of a Kidney transplant evaluation, is time sensitive, and should only be drawn during the evaluation visit at [address] Lab. Jossie King MD LAB MICROBIOLOGY - GENERAL ORDERABLES Final Result Performing Organization Address City/[facility]/ZIP Co de Phone Number [facility] Department [place] [address] * Hepatitis B core antibody, total Blood (07/29/2024 11:01 AM ASSOCIATE PROFESSOR OF MEDICINE) [facility] Hep B core IgG/IgM Nonreactive Nonreactive Blood 07/29/2024 11:0 1 AM ASSOCIATE PROFESSOR OF MEDICINE 07/29/2024 11:32 AM ASSOCIATE PROFESSOR OF MEDICINE Narrative [facility] - 07/29/2024 12:47 PM ASSOCIATE PROFESSOR OF MEDICINE This lab is being obtained as part of a Kidney transplant evaluation, is time sensitive, and should only be drawn during the evaluation visit at [address] Jossie King MD LAB MICROBIOLOGY - GENERAL ORDERABLES Final Result [facility] Department [place] [address] * Protein, urine, random (07/29/2024 11:01 AM ASSOCIATE PROFESSOR OF MEDICINE) Protein, ur, quant 121.2 mg/dL Comment: Interpretive Data No reference range established. Current interpretive data was last revised 2019. Urine 07/29/2024 11:0 1 AM ASSOCIATE PROFESSOR OF MEDICINE 07/29/2024 11:32 AM ASSOCIATE PROFESSOR OF MEDICINE Narrative [facility] - 07/29/2024 12:18 PM ASSOCIATE PROFESSOR OF MEDICINE This lab is being obtained as part of a Kidney transplant evaluation, is time sensitive, and should only be drawn during the evaluation visit at [address] Lab. Jossie King MD LAB URINE ORDERABL ES Final Result Performing Organization Address [facility] de Phone Number [facility] [place] [address] * Creatinine, urine, random (07/29/2024 11:01 AM ASSOCIATE PROFESSOR OF MEDICINE) Creatinine Ur 167.1 mg/dL Comment: Interpretive Data No reference range established. Current interpretive data was last revised 2019. Urine 07/29/2024 11:0 1 AM ASSOCIATE PROFESSOR OF MEDICINE 07/29/2024 11:32 AM ASSOCIATE PROFESSOR OF MEDICINE Narrative [facility] - 07/29/2024 12:18 PM ASSOCIATE PROFESSOR OF MEDICINE This lab is being obtained as part of a Kidney transplant evaluation, is time sensitive, and should only be drawn during the evaluation visit at [address] Jossie King MD LAB URINE ORDERABL ES Final Result Performing Organization Address [facility] Co de Phone Number [facility] [place] [address] * HSV 2 IgG Antibody Blood (07/29/2024 11:01 AM ASSOCIATE PROFESSOR OF MEDICINE) HSV 2 IgG Nonreactive Nonreactive Comment: Interpretive Data 1. Nonreactive: No detectable IgG antibody to HSV-2. 2. Equivocal: Presence or absence of detectable antibodies to HSV-2 cannot be determined and the test should be repeated. 3. Reactive: Indicates presence of detectable IgG antibody to HSV-2. Current interpretive data was last revised on 2022. Blood 07/29/2024 11:0 1 AM ASSOCIATE PROFESSOR OF MEDICINE 07/29/2024 11:33 AM ASSOCIATE PROFESSOR OF MEDICINE Narrative [facility] - 07/29/2024 1:44 PM ASSOCIATE PROFESSOR OF MEDICINE This lab is being obtained as part of a Kidney transplant evaluation, is time sensitive, and should only be drawn during the evaluation visit at [address] Lab. Jossie King MD LAB MICROBIOLOGY - GENERAL ORDERABLES Final Result [facility] [place] [address] * (ABNORMAL) HSV 1 IgG Antibody Blood (07/29/2024 11:01 AM ASSOCIATE PROFESSOR OF MEDICINE) HSV 1 IgG Reactive( A) Nonreactive Comment: Interpretive Data 1. Nonreactive: No detectable IgG antibody to HSV-1. 2. Equivocal: Presence or absence of detectable antibodies to HSV-1 cannot be determined and the test should be repeated. 3. Reactive: Indicates presence of detectable IgG antibody to HSV-1. Current interpretive data was last revised on 2016. Blood 07/29/2024 11:0 1 AM ASSOCIATE PROFESSOR OF MEDICINE 07/29/2024 11:33 AM ASSOCIATE PROFESSOR OF MEDICINE Narrative ALESSANDRA [facility] - 07/29/2024 1:44 PM ASSOCIATE PROFESSOR OF MEDICINE This lab is being obtained as part of a Kidney transplant evaluation, is time sensitive, and should only be drawn during the evaluation visit at [address] Lab. oJssie King MD LAB MICROBIOLOGY - GENERAL ORDERABLES Final Result [facility] [place] [address] * RPR Blood (07/29/2024 11:01 AM ASSOCIATE PROFESSOR OF MEDICINE) RPR Nonreactive Nonreactive Blood 07/29/2024 11:0 1 AM ASSOCIATE PROFESSOR OF MEDICINE 07/29/2024 11:33 AM ASSOCIATE PROFESSOR OF MEDICINE Narrative [facility] - 07/29/2024 12:34 PM ASSOCIATE PROFESSOR OF MEDICINE This lab is being obtained as part of a Kidney transplant evaluation, is time sensitive, and should only be drawn during the evaluation visit at [address] Result [facility] Jossie King MD LAB MICROBIOLOGY - GENERAL ORDERABLES Final Result Performing Organization Address [facility] de Phone Number [facility] [place] [address] * Hepatitis B surface antibody (immune status) Blood (07/29/2024 11:01 AM ASSOCIATE PROFESSOR OF MEDICINE) HBsAb (immune status) Reactive Comment:This result is consi stent with immunity to Hepatitis B Virus when used in the setting of routine screening. Current interpretive data was last revised on 22 Blood 07/29/2024 11:0 1 AM ASSOCIATE PROFESSOR OF MEDICINE 07/29/2024 11:32 AM ASSOCIATE PROFESSOR OF MEDICINE Narrative [facility] 07/29/2024 12:47 PM ASSOCIATE PROFESSOR OF MEDICINE This lab is being obtained as part of a Kidney transplant evaluation, is time sensitive, and should only be drawn during the evaluation visit at [address] Result [facility] Jossie King MD LAB MICROBIOLOGY - GENERAL ORDERABLES Final Result Performing Organization Address [facility] de Phone Number [facility] [place] [address] * Hepatitis B Surface Antigen Blood (07/29/2024 11:01 AM ASSOCIATE PROFESSOR OF MEDICINE) HepBsAg Nonreactive Nonreactive Blood 07/29/2024 11:0 1 AM ASSOCIATE PROFESSOR OF MEDICINE 07/29/2024 11:32 AM ASSOCIATE PROFESSOR OF MEDICINE Narrative [facility] 07/29/2024 12:47 PM ASSOCIATE PROFESSOR OF MEDICINE This lab is being obtained as part of a Kidney transplant evaluation, is time sensitive, and should only be drawn during the evaluation visit at [address] Jossie King MD LAB MICROBIOLOGY - GENERAL ORDERABLES Final Result Performing Organization Address [facility] [place] [address] * (ABNORMAL) aPTT (07/29/2024 11:01 AM ASSOCIATE PROFESSOR OF MEDICINE) aPTT 61(H) 28 - 38 sec Comment: Interpretive Data Heparin therapeutic range: 66.0 - 100.0 seconds. Range based on correlation with therapeutic heparin activity range of 0.3 - 0.7 Units/mL. Current interpretive data was last revised on 2023. Blood 07/29/2024 11:0 1 AM ASSOCIATE PROFESSOR OF MEDICINE 07/29/2024 11:32 AM ASSOCIATE PROFESSOR OF MEDICINE Narrative [facility] - 07/29/2024 11:42 AM ASSOCIATE PROFESSOR OF MEDICINE This lab is being obtained as part of a Kidney transplant evaluation, is time sensitive, and should only be drawn during the evaluation visit at [facility] Lab. Jossie King MD LAB BLOOD ORDERABL ES Final Result Performing Organization Address [facility] de Phone Number [facility] [place] [address] * (ABNORMAL) Protime-INR (07/29/2024 11:01 AM ASSOCIATE PROFESSOR OF MEDICINE) PT 50.6(H) 9.7 - 13.0 sec INR 4.54(H) 0.90 - 1.20 [facility] Comment: Interpretive data Oral anticoagulant therapeutic ranges: Venous thromboembolism prophylaxis or treatment: 2.0-3.0 CARDIOLOGY Standard range: 2.0-3.0 High-intensity range: 2.5-3.5 Refer to indication-specific guidelines for appropriate target ranges for prosthetic heart valve replacement. Current interpretive data was last revised on 2019. Blood 07/29/2024 11:0 1 AM ASSOCIATE PROFESSOR OF MEDICINE 07/29/2024 11:32 AM ASSOCIATE PROFESSOR OF MEDICINE Narrative [facility] - 07/29/2024 11:42 AM ASSOCIATE PROFESSOR OF MEDICINE This lab is being obtained as part of a Kidney transplant evaluation, is time sensitive, and should only be drawn during the evaluation visit at [address] Result [facility] Jossie King MD LAB BLOOD ORDERABL ES Final Result Performing Organization Address [facility] Co de Phone Number [facility] [place] [address] * Varicella Zoster IgG antibody Blood (07/29/2024 11:01 AM ASSOCIATE PROFESSOR OF MEDICINE) Pathologist [facility] IgG Reactive Reactive Comment:Reactive: Results diego ggest response to immunization or prior exposure to the virus. Blood 07/29/2024 11:0 1 AM ASSOCIATE PROFESSOR OF MEDICINE 07/29/2024 11:33 AM ASSOCIATE PROFESSOR OF MEDICINE Narrative [facility] 07/29/2024 1:45 PM ASSOCIATE PROFESSOR OF MEDICINE This lab is being obtained as part of a Kidney transplant evaluation, is time sensitive, and should only be drawn during the evaluation visit at [address] Result [facility] Jossie King MD LAB MICROBIOLOGY - GENERAL ORDERABLES Final Result Performing Organization Address [facility] de Phone Number [facility] [place] [address] * (ABNORMAL) Uric acid (07/29/2024 11:01 AM ASSOCIATE PROFESSOR OF MEDICINE) Pathologist [facility] Uric acid 2.0(L) 3.0 - 8.0 mg/dL Blood 07/29/2024 11:0 1 AM ASSOCIATE PROFESSOR OF MEDICINE 07/29/2024 11:33 AM ASSOCIATE PROFESSOR OF MEDICINE Narrative [facility] 07/29/2024 12:10 PM ASSOCIATE PROFESSOR OF MEDICINE This lab is being obtained as part of a Kidney transplant evaluation, is time sensitive, and should only be drawn during the evaluation visit at [address] Result [facility] Jossie King MD LAB BLOOD ORDERABL ES Final Result Performing Organization Address [facility] Co de Phone Number [place] [address] * (ABNORMAL) Phosphorus (07/29/2024 11:01 AM ASSOCIATE PROFESSOR OF MEDICINE) [facility] Phosphorus, pl 5.1(H) 2.3 - 4.5 mg/dL Blood 07/29/2024 11:0 1 AM ASSOCIATE PROFESSOR OF MEDICINE 07/29/2024 11:33 AM ASSOCIATE PROFESSOR OF MEDICINE Narrative [facility] - 07/29/2024 12:10 PM ASSOCIATE PROFESSOR OF MEDICINE This lab is being obtained as part of a Kidney transplant evaluation, is time sensitive, and should only be drawn during the evaluation visit at [address] Jossie King MD LAB BLOOD ORDERABL ES Final Result Performing Organization Address [facility] [place] [address] * (ABNORMAL) PTH (07/29/2024 11:01 AM ASSOCIATE PROFESSOR OF MEDICINE) [facility] PTH 444(H) 15 - 65 pg/mL Blood 07/29/2024 11:0 1 AM ASSOCIATE PROFESSOR OF MEDICINE 07/29/2024 11:34 AM ASSOCIATE PROFESSOR OF MEDICINE Narrative [facility] - 07/29/2024 12:02 PM ASSOCIATE PROFESSOR OF MEDICINE This lab is being obtained as part of a Kidney transplant evaluation, is time sensitive, and should only be drawn during the evaluation visit at [address] Jossie King MD LAB BLOOD ORDERABL ES Final Result Performing Organization Address City/[facility] [place] [address] * (ABNORMAL) Hemoglobin A1c (07/29/2024 11:01 AM ASSOCIATE PROFESSOR OF MEDICINE) [facility] Hgb A1C 9.0(H) 4.0 - 5.6 % Estimated Average Glucose 212 mg/dL [facility] Comment: The ADA recommends reporting an estimated Average Glucose (eAG) with all Hemoglobin A1c results using the equation derived from a study of 507 normal and diabetic adults. ??Minority populations were underrepresented and children were not included. ?? (Diabetes Care 2020; 43(S1): S66-S76). ??The eAG is not equivalent to a fasting glucose. Blood 07/29/2024 11:0 1 AM ASSOCIATE PROFESSOR OF MEDICINE 07/29/2024 11:34 AM ASSOCIATE PROFESSOR OF MEDICINE Narrative [facility] - 07/29/2024 11:53 AM ASSOCIATE PROFESSOR OF MEDICINE This lab is being obtained as part of a Kidney transplant evaluation, is time sensitive, and should only be drawn during the evaluation visit at [address] Jossie King MD LAB BLOOD ORDERABL ES Final Result Performing Organization Address [facility] de Phone Number [facility] Department [place] [address] * Gamma GT (07/29/2024 11:01 AM ASSOCIATE PROFESSOR OF MEDICINE) GGT 22 10 - 50 Units/L Blood 07/29/2024 11:0 1 AM ASSOCIATE PROFESSOR OF MEDICINE 07/29/2024 11:33 AM ASSOCIATE PROFESSOR OF MEDICINE Narrative [facility] - 07/29/2024 12:40 PM ASSOCIATE PROFESSOR OF MEDICINE This lab is being obtained as part of a Kidney transplant evaluation, is time sensitive, and should only be drawn during the evaluation visit at [address] Jossie King MD LAB BLOOD ORDERABL ES Final Result Performing Organization Address [facility] Co de Phone Number [facility] [place] [address] * (ABNORMAL) Ferritin (07/29/2024 11:01 AM ASSOCIATE PROFESSOR OF MEDICINE) Ferritin 761(H) 30 - 400 ng/mL Blood 07/29/2024 11:0 1 AM ASSOCIATE PROFESSOR OF MEDICINE 07/29/2024 11:33 AM ASSOCIATE PROFESSOR OF MEDICINE Narrative [facility] - 07/29/2024 12:10 PM ASSOCIATE PROFESSOR OF MEDICINE This lab is being obtained as part of a Kidney transplant evaluation, is time sensitive, and should only be drawn during the evaluation visit at [facility]. us Jossie King MD LAB BLOOD ORDERABL ES Final Result [facility] Department [place] [address] * (ABNORMAL) Lipid panel (07/29/2024 11:01 AM ASSOCIATE PROFESSOR OF MEDICINE) Cholesterol 114 30 - 199 mg/dL Comment: [...] revised on 2018. Triglycerides 66 <=149 mg/dL [facility] Comment: Interpretive Data Ages < [...] revised on 2018. HDL 29(L) >=40 mg/dL [facility] Comment: Interpretive Data Ages < [...] on 2018. LDL, calculated 71 <=129 mg/dL [facility] Comment: Interpretive Data Ages < [...] revised on 2024. Non-HDL Cholesterol 85 mg/dL [facility] Comment: Interpretive Data Ages < [...] last revised on 2018. Chol/HDL ratio 4 [facility] Blood 07/29/2024 11:0 1 AM ASSOCIATE PROFESSOR OF MEDICINE 07/29/2024 11:33 AM ASSOCIATE PROFESSOR OF MEDICINE Narrative [facility] - 07/29/2024 12:10 PM ASSOCIATE PROFESSOR OF MEDICINE This lab is being obtained as part of a Kidney transplant evaluation, is time sensitive, and should only be drawn during the evaluation visit at [facility] us Jossie King MD LAB BLOOD ORDERABL ES Final Result [facility] Department [place] [address] * (ABNORMAL) Comprehensive metabolic panel (07/29/2024 11:01 AM ASSOCIATE PROFESSOR OF MEDICINE) [facility] Sodium 136 135 - 145 mmol/L Potassium, pl 4.6 3.3 - 4.9 mmol/L [facility] Chloride 93(L) 97 - 110 mmol/L [facility] CO2 26 22 - 32 mmol/L [facility] Anion gap 17(H) 2 - 15 mmol/L [facility] BUN 65(H) 6 - 25 mg/dL [facility] Creatinine 8.07(H) 0.80 - 1.30 mg/dL [facility] Glucose 280(H) 70 - 199 mg/dL [facility] Comment: Interpretive Data Fasting glucose >/= [...] 2022. Calcium 9.4 8.5 - 10.3 mg/dL [facility] Bilirubin, total 0.3 0.1 - 1.2 mg/dL [facility] Protein, pl 7.2 6.5 - 8.5 g/dL [facility] Albumin 3.8 3.5 - 5.0 g/dL [facility] Alk phos 99 40 - 130 Units/L [facility] ALT 30 7 - 55 Units/L [facility] AST 31 10 - 50 Units/L [facility] Blood 07/29/2024 11:0 1 AM ASSOCIATE PROFESSOR OF MEDICINE 07/29/2024 11:33 AM ASSOCIATE PROFESSOR OF MEDICINE Narrative [facility] - 07/29/2024 12:10 PM ASSOCIATE PROFESSOR OF MEDICINE This lab is being obtained as part of a Kidney transplant evaluation, is time sensitive, and should only be drawn during the evaluation visit at [facility]. Jossie King MD LAB BLOOD ORDERABL ES Final Result [facility] [place] [address] * (ABNORMAL) Oxalate (oxalic acid) (07/29/2024 10:53 AM ASSOCIATE PROFESSOR OF MEDICINE) [facility] Signature Oxalate 12.3(H) <=2.0 mcmol/L [facility] Comment: High value suggestive of Primary Hyperoxaluria. However, if the patient has chronic kidney disease (GFR<30 mL/min/1.73m2), plasma oxalate values up to 30 mcmol/L can be normal. The [facility] Hyperoxaluria Center is available to review case details and answer any questions regarding interpretation ([email or web address] [phone]) ADDITIONAL INFORMATION This test has been modified from the department store salesperson's instructions. Its performance characteristics were determined by [facility] in a manner consistent with CLIA requirements. This test has not been cleared or approved by the U.S. Food and Drug Administration. Test Performed by: [facility] [place] [address] Process Control Programmer: Jairo Higgins Ph.D.; CLIA# [id number] Blood 07/29/2024 10:5 3 AM ASSOCIATE PROFESSOR OF MEDICINE 07/29/2024 11:37 AM ASSOCIATE PROFESSOR OF MEDICINE Jossie King MD LAB BLOOD ORDERABL ES Final Result [facility] Department [place] [address] [facility] * (ABNORMAL) Urinalysis reflex to microscopic (07/29/2024 10:53 AM ASSOCIATE PROFESSOR OF MEDICINE) Color, ur Yellow Yellow Clarity, ur Cloudy(A) Clear [facility] Specific gravity, ur 1.022 1.003 - 1.030 [facility] pH, urine 6.0 [facility] Comment: Interpretive Data ? Urine pH is affected by diet, medications, systemic acid-base disturbances, and renal tubular function. ??pH may affect urinary stone formation. ??For example, urine pH below 6.0 may help reduce the tendency for calcium phosphate stones and pH greater than 6.0 may reduce the tendency for uric acid stone formation. Source: [facility] Current Interpretive Data was last revised on 2017 Protein, ur ql 2+(A) Negative [facility] Glucose, ur ql 4+(A) Negative [facility] Ketones, ur Negative Negative [facility] Bilirubin, ur Negative Negative [facility] Blood, ur 3+(A) Negative [facility] Urobilinogen, ur <2.0 <2.0 mg/dL [facility] Nitrite, ur Negative Negative [facility] Leukocyte esterase, ur 2+(A) Negative [facility] UA reflex comment Reflex to microscopic UA will be performed. [facility] Urine 07/29/2024 10:5 3 AM ASSOCIATE PROFESSOR OF MEDICINE 07/29/2024 11:27 AM ASSOCIATE PROFESSOR OF MEDICINE Narrative [facility] - 07/29/2024 11:29 AM ASSOCIATE PROFESSOR OF MEDICINE This lab is being obtained as part of a Kidney transplant evaluation, is time sensitive, and should only be drawn during the evaluation visit at [facility]. Jossie King MD LAB URINE ORDERABL ES Final Result Performing Organization Address City/[facility] Co de Phone Number [facility] [place] [address] * (ABNORMAL) Urinalysis, microscopic only (07/29/2024 10:53 AM ASSOCIATE PROFESSOR OF MEDICINE) WBC, ur 21-50(A) 0 - 5 /HPF RBC, ur >50(A) 0 - 2 /HPF [facility] Epithelial cells, squamous, ur 1-5 0 - 5 /HPF [facility] Bacteria, ur Trace(A) [facility] Mucous, ur Present(A) [facility] Hyaline casts, ur 1-5 0 - 10 /LPF [facility] Urine 07/29/2024 10:5 3 AM ASSOCIATE PROFESSOR OF MEDICINE 07/29/2024 11:27 AM ASSOCIATE PROFESSOR OF MEDICINE Jossie King MD LAB URINE ORDERABL ES Final Result Performing Organization Address [facility]/ZIP Co de Phone Number [facility] [place] [address] * Cardiology Document Scan (06/07/2024 11:10 AM CDT) Anatomical Region Laterality Modality Other Karen Barnes NP CV CARDIAC SERVICES PROCEDUR ES Final Result * (ABNORMAL) TSH (10/27/2023 2:30 AM ASSOCIATE PROFESSOR OF MEDICINE) Thyroid Stimulating Hormone 13.20(H) 0.30 - 4.20 mcIUnit/mL Blood 10/27/2023 2:30 AM ASSOCIATE PROFESSOR OF MEDICINE 10/27/2023 2:42 AM ASSOCIATE PROFESSOR OF MEDICINE us Lorne Mcnulty MD LAB BLOOD ORDERABLES Final Result [facility] [address] Department [place] [address] from Last 3 Months or Most Recently Relevant to Health Maintenance Insurance [facility] MEDICARE SOLUTIONS IDPA MEDICARE SOLUTIONS TRANSPLANT [employer] MEDICARE RISK IDPA TRANSPLANT [employer] MEDICARE RISK IDPA Advance Directives For more information, please contact: [phone] * Full Code (Latest Code Status on [...] PM 06/05/2022 4:43 AM Care Teams Supervisor Pig Machine Relationship Specialty Start Date End Date Aditya Castro MD [address] [facility] [place] [address] PCP - General 10/17/19 Alondra Lambert, RN [address] [facility] [address] [place] [address] Technical Sales Advisor 03/06/24 Hamlet Ortega Jr., MD [address] [place] [address] Consulting Physician Cardiovascular Disease 05/10/24 Leandro Reyes MD [address] [facility] 1 [place] [address] Consulting Physician Nephrology 07/30/24
--- OUTSIDE RECORDS SUMMARY | 2024-09-07 23:32 | XMS_ITS | Encounter Summary ---
Author Organization [facility] Healthcare Address [address] [place] [address] Care Team Providers Care Maintenance Service Technician Name Role Phone Aditya Castro MD Primary Care Provider [phone] Alondra Lambert RN Unavailable [phone] Shannon Brock MD, Hamlet P. Unavailable [phone] Leandro Reyes MD Unavailable [phone] Encounter Details Date Type Department Care Team (Late st Contact Info) Description 07/30/2024 Telephone [facility] Transplant Kidney [address] [facility] [address] Mailstop [phone] [place] [address] Alondra Lambert RN [address] [facility] [address] [place] [id number] Social History Tobacco Use Types Packs/Day Years [...] materials from doctor or pharmacy Never 12/01/2023 [facility] Utilities Answer Date Recorded In [...] any clubs o r organizations such as latter day groups, unions, fraternal or athletic groups, or [...] on file Legal Sex Male 3:42 AM CREDIT 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 His president practicing urologist takes care of this. Willmail out letter today summarizing remaining things needed to complete evaluation. Called and spoke with nurse at dialysis center. Mentioned that we felt he was in volume overload. Read the CT report to her. Will discuss this with nephrology. IT DEPARTMENT MANAGER documented in this encounter Plan of Treatment Not on file documented as of this encounter Visit Diagnoses Not on filedocumented in this encounter Care Teams Maintenance Service Technician Relationship Specialty Start Date End Date Aditya Castro MD [address] [facility] [place] [address] PCP - General 10/17/19 Alondra Lambert RN [address] [address] Tractor Driver Teamster 03/06/24 Hamlet Ortega Jr., MD [address] [place] [address] Consulting Physician Cardiovascular Disease 05/10/24 Leandro Reyes MD [facility] [place] [address] Consulting Physician Nephrology 07/30/24 documented as of this encounter
--- OUTSIDE RECORDS SUMMARY | 2024-09-07 23:32 | XMS_ITS | Encounter Summary ---
Author Organization [facility] Healthcare Address [address] [place] [address] Care Team Providers Care Market Basket Maker Name Role Phone Aditya Castro MD Primary Care Provider [phone] Alondra Lambert RN Unavailable [phone] Shannon Brock MD, Hamlet Gordon Unavailable [phone] Encounter Details Date Type Department Care Team (Late st Contact Info) Description 06/06/2024 Documentation [facility] Transplant Kidney [address] [phone] [place] [address] Melany Kelly Social History Tobacco Use Types [...] doctor or pharmacy Never 12/01/2023 [facility] Utilities Answer Date Recorded In the past 12 months has [employer], gas, oil, or water company threatened to [...] on file Legal 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
--- OUTSIDE RECORDS SUMMARY | 2024-09-07 23:32 | XMS_ITS | Encounter Summary ---
Author Organization [facility] Healthcare Address [address] [place] [address] Care Team Providers Care Housekeeper/Custodian/Laundry Worker Name Role Phone Aditya Castro MD Primary Care Provider [phone] Alondra Lambert RN Unavailable [phone] Shannon Brock MD, Hamlet Gordillo. Unavailable [phone] Reason for Referral * Diagnostic Imaging (Routine) - Pending Review Specialty Diagnoses / Procedures Referred By Contac t Referred To Contact Radiology Diagnoses End stage renal disease (CMS/HCC) (HCC) Procedures CT Abdomen Pelvis WO Contrast Jossie King MD [address] [place] [address] Phone: tel: fax: [facility] 1 [place] [address] Referral ID Status Reason Start Date Expiration Date V isits Requested Visits Authorized [id number] Pending Review 05/10/2024 06/09/2025 1 1 MIZE ARCHITECT Reason for Visit * Diagnostic Imaging (Routine) - Pending Review Specialty Diagnoses / Procedures Referred By Contac t Referred To Contact Radiology Diagnoses End stage renal disease (CMS/HCC) (HCC) Procedures CT Abdomen Pelvis WO Contrast Jossie King MD [address] [place] [address] Phone: tel: fax: [facility] 1 [facility] [place] [address] Referral ID Status Reason Start Date Expiration Date V isits Requested Visits Authorized [id number] Pending Review 05/10/2024 06/09/2025 1 1 Encounter Details Date Type Department Care Team (Latest Contact Info) Description 07/29/2024 10:58 AM ACTIMIZE ARCHITECT - 07/29/2024 11:59 PM ACTIMIZE ARCHITECT Hospital Encounter [facility] [address] [place] [id number] End stage renal disease (CMS/HCC) (HCC) Discharge [...] from doctor or pharmacy Never 12/01/2023 [facility] Utilities Answer Date Recorded In the past 12 months has e [employer], gas, oil, or water [employer] threatened to shut off services in [...] often do you attend chur ch or spiritism services? 1 to 4 times [...] on file Legal Sex Male 3:42 AM ACTIMIZE ARCHITECT Gender Identity Not on file Sexual [...] PUMP: Continue Omnipod 5 insulin pump with Tinkoff Digital G6 CGM at home settings: TIME BASAL [...] 1 tablet (25 mcg total) by mouth precision farming specialist before breakfast 30 tablet 1 11/04/2023 Linzess [...] (20 mg total) by mouth daily peg [id number] cerin (ARTIFICAL TEARS) 1-0.2-0.2 % ophthalmic solution [...] 500 mg tablet warfarin (COUMADIN) 2 mg tabletIndications:Ne chanical Valve Thromboembolism Prophylaxis Take 4 mg [...] Read Routine (OP Routine) 07/29/2024 12:43 PM ACTIMIZE ARCHITECT End stage renal disease (CMS/HCC) (HCC) documented in this encounter Results * CT Abdomen Pelvis WO Contrast (07/29/2024 12:43 PM ACTIMIZE ARCHITECT) Anatomical Region Laterality Modality Body N/A Computed Tomogra phy 07/29/2024 1:04 PM ACTIMIZE ARCHITECT Impressions 07/29/2024 1:04 PM ACTIMIZE ARCHITECT 1. ??Moderate discontinuous atherosclerotic calcifications involve the [...] Teresa Rivera M.D. Narrative 07/29/2024 1:04 PM ACTIMIZE ARCHITECT EXAMINATION: ??Computed tomography of the abdomen and [...] Electronically signed by: Maria Teresa Rivera M.D. [facility] Jaylen King MD IMG CT PROCEDURES Final Result documented in this encounter Visit Diagnoses Diagnosis End stage renal disease (CMS/HCC) (HCC) End stage renal disease documented in this encounter Care Teams Housekeeper/Custodian/Laundry Worker Relationship Specialty Start Date End Date Aditya Castro MD [address] [facility] [place] [address] PCP - General 10/17/19 Alondra Lambert RN [address] [facility] [address] [place] [address] Wafer Cleaner 03/06/24 Hamlet Ortega Jr., MD [address] [place] [address] Consulting Physician Cardiovascular Disease 05/10/24 documented as of this encounter
--- OUTSIDE RECORDS SUMMARY | 2024-09-07 23:32 | XMS_ITS | Encounter Summary ---
Author Organization [facility] Healthcare Address [address] [place] [address] Care Team Providers Care Manager College Name Role Phone Aditya Castro MD Primary Care Provider [phone] Alondra Lambert RN Unavailable [phone] Shannon Brock MD, [place] P. Unavailable [phone] Reason for Referral * (Routine) - Pending Review Specialty Diagnoses / Procedures Referred By Contac t Referred To Contact Diagnoses End stage renal disease (CMS/HCC) (HCC) Procedures Six Minute Walk - Jossie King MD [address] [place] [address] Phone: tel: fax: [facility] [address] [place] [address] Referral ID Status Reason Start Date Expiration Date V isits Requested Visits Authorized [id number] Pending Review 05/10/2024 06/09/2025 1 1 * Cardiology (Routine) - Pending Review Specialty Diagnoses / Procedures Referred By Contac t Referred To Contact Diagnoses End stage renal disease (CMS/HCC) (HCC) Procedures ECG 12 lead Jossie King MD [address] [place] [address] Phone: tel: fax: [address] [phone] Referral ID Status Reason Start Date Expiration Date V isits Requested Visits Authorized [id number] Pending Review 05/10/2024 06/09/2025 1 1 * Diagnostic Imaging (Routine) - Pending Review Specialty Diagnoses / Procedures Referred By Contac t Referred To Contact Diagnoses End stage renal disease (CMS/HCC) (HCC) Procedures XR Orthopantogram Panorex Jossie King MD [address] [address] Phone: tel: fax: [address] [phone] Referral ID Status Reason Start Date Expiration Date V isits Requested Visits Authorized [id number] Pending Review 05/10/2024 06/09/2025 1 1 * Diagnostic Imaging (Routine) - Pending Review Specialty Diagnoses / Procedures Referred By Contac t Referred To Contact Radiology Diagnoses End stage renal disease (CMS/HCC) (HCC) Procedures CT Abdomen Pelvis WO Contrast Jossie King MD [address] [address] Phone: tel: fax: [address] [phone] Referral ID Status Reason Start Date Expiration Date V isits Requested Visits Authorized [id number] Pending Review 05/10/2024 06/09/2025 1 1 Encounter Details Date Type Department Care Team (Late st Contact Info) Description 05/10/2024 Telephone [facility] Transplant Kidney [address] [facility] [address] [phone] [place] [address] Alondra Lambert, RN [address] [facility] [address] [place] [address] Social History Tobacco Use Types Packs/Day Years [...] from doctor or pharmacy Never 12/01/2023 [facility] Utilities Answer Date Recorded In the past 12 months has th e [employer], gas, oil, or water [employer] threatened to shut off services in [...] any clubs o r organizations such as mu-ism groups, unions, fraternal or athletic groups, or [...] on file Legal Sex Male 3:42 AM DIE ENGRAVING SUPERVISOR Gender Identity Not on file Sexual [...] are to call the transplant department at [phone]. Please schedule pt for the following Pt does dialysis PD Please obtain [phone]. Yes Transplant Education Video - this will [...] SIX MINUTE WALK Routine 07/29/2024 2:46 PM DIE ENGRAVING SUPERVISOR End stage renal disease (CMS/HCC) (HCC) documented in this encounter Results * Six Minute Walk - (07/29/2024 2:46 PM DIE ENGRAVING SUPERVISOR) Anatomical Region Laterality Modality PFT Narrative 07/29/2024 3:52 PM DIE ENGRAVING SUPERVISOR Table formatting from the original result was not included. Davey Pickard V., KILN PULLER on 07/29/2024 ??2:45 PM Table formatting from the original note was not included. 6 MINUTE WALK RESULTS Name: SamdreJuvenal Jr : 1970 DOS: 07/29/2024 Diagnosis: ESRD/KTE KILN PULLER performed walk: Carmenza Pickard Rest: 1 min [...] Abdomen Pelvis WO Contrast (07/29/2024 12:43 PM DIE ENGRAVING SUPERVISOR) Anatomical Region Laterality Modality Body N/A Computed Tomogra phy 07/29/2024 1:04 PM DIE ENGRAVING SUPERVISOR Impressions 07/29/2024 1:04 PM DIE ENGRAVING SUPERVISOR 1. ??Moderate discontinuous atherosclerotic calcifications involve [...] Teresa Rivera M.D. Narrative 07/29/2024 1:04 PM DIE ENGRAVING SUPERVISOR EXAMINATION: ??Computed tomography of the abdomen [...] Electronically signed by: Maria Teresa Rivera M.D. 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 Electronically signed by: Julio Pinedo M.D. Narrative 07/29/2024 12:59 PM DIE ENGRAVING SUPERVISOR EXAMINATION: XR ORTHOPANTOGRAM/PANOREX HISTORY: Kidney Transplant [...] * Type and screen (07/29/2024 11:23 AM DIE ENGRAVING SUPERVISOR) Maribel, indirect Negative ABO Rh A Positive [facility] Blood 07/29/2024 11:2 3 AM DIE ENGRAVING SUPERVISOR 07/29/2024 11:43 AM DIE ENGRAVING SUPERVISOR Narrative [facility] - 07/29/2024 12:45 PM DIE ENGRAVING SUPERVISOR Please draw the ABO and the [...] the evaluation visit at [facility] 3C Lab. Has the patient had Daratumumab or Isatuximab in the past 6 months?->Unknown Jossie King MD LAB BLOOD BANK ERNESTO T ORDERABLES Final Result [facility] Department [place] [address] * ECG 12 lead (07/29/2024 11:14 AM DIE ENGRAVING SUPERVISOR) Ventricular Rate EKG/Min 117 BPM [facility] Atrial Rate 117 BPM [facility] MN-Interval (MSEC) 144 ms [facility] QRS-Interval (MSEC) 126 ms [facility] QT-Interval (MSEC) 366 ms [facility] QTc 510 ms [facility] R Weed -40 degrees [facility] T Weed 147 degrees [facility] Diagnosis Poor data quality, interpretation may be [...] SAL M.D ([id number]) on 07/29/2024 3:38:41 PM [facility] 07/29/2024 11:1 4 AM DIE ENGRAVING SUPERVISOR 07/29/2024 3:38 PM DIE ENGRAVING SUPERVISOR Jossie King MD ECG ORDERABLES Fi nal Result [facility] * PSA screen (07/29/2024 11:01 AM DIE ENGRAVING SUPERVISOR) PSA-Total 0.55 <=3.90 ng/mL Comment: Interpretive [...] revised 21. Blood 07/29/2024 11:0 1 AM DIE ENGRAVING SUPERVISOR 07/29/2024 11:33 AM DIE ENGRAVING SUPERVISOR Narrative AL[facility]ANDRA [facility] - 07/29/2024 12:39 PM DIE ENGRAVING SUPERVISOR This lab is being obtained as part of a Kidney transplant evaluation, is time sensitive, and should only be drawn during the evaluation visit at [facility] 3CAM Lab. Jossie iKng MD LAB BLOOD ORDERABL ES Final Result Performing Organization Address [facility] de Phone Number [facility] [place] [address] * Collection Task for HLA Antibody Screen (07/29/2024 11:01 AM DIE ENGRAVING SUPERVISOR) HLA Antibody Screen By Single Antigen Received Blood 07/29/2024 11:0 1 AM DIE ENGRAVING SUPERVISOR 07/29/2024 11:56 AM DIE ENGRAVING SUPERVISOR Jossie King MD LAB BLOOD ORDERABL ES Final Result Performing Organization Address [facility] de Phone Number [facility] Department [place] [address] * HLA Antibody Screen - SAB (Class I and Class II) (07/29/2024 11:01 AM DIE ENGRAVING SUPERVISOR) Class I Treatment EDTA [facility] Class [...] DR52 [facility] Blood 07/29/2024 11:0 1 AM DIE ENGRAVING SUPERVISOR 08/02/2024 9:46 AM DIE ENGRAVING SUPERVISOR Narrative [facility] - 08/02/2024 9:46 AM DIE ENGRAVING SUPERVISOR Single-antigen HLA antibody screen is performed on serum samples using a method developed and validated by the [facility] HLA laboratory based on an FDA-approved IVD kit (LABScreen Single-Antigen, [employer], [place], [place]). All patient serum samples are pretreated with EDTA before the screen to prevent complement interference. Additional serum treatments, such as adsorption and DTT treatment, may be performed as indicated. ??Interpretive comments: Low risk: MFI [id number]. Moderate risk: MFI [id number]. Increased risk: MFI >/= 5000. The presence [...] to avoid. Testing performed at the [facility] HLA Laboratory, [address] [place] [address], 5th floor, [facility], [place], [address]. [place] # [id number]. Dorothy Meade, Ph.D., Marine Engine Driver, HLA Laboratory Rell Samuels M.D., Ph.D., Seasoner Hand, HLA Laboratory Licha Nieto, Ph.D., CLIA Seasoner Hand, [facility] Clinical Laboratories Current methodology and interpretive comments last revised on 09/15/2022. Jossie King MD LAB BLOOD ORDERABL ES Final Result [facility] * Collection Task for HLA Typing 2, Patient (07/29/2024 11:01 AM DIE ENGRAVING SUPERVISOR) HLA Class II DNA (DR, DQ, DP) Recipient Received Blood 07/29/2024 11:0 1 AM DIE ENGRAVING SUPERVISOR 07/29/2024 11:56 AM DIE ENGRAVING SUPERVISOR Jossie King MD LAB BLOOD ORDERABL ES Final Result Performing Organization Address City/[facility] Co de Phone Number [facility] Department [place] [address] * Collection Task for HLA Typing 1 (07/29/2024 11:01 AM DIE ENGRAVING SUPERVISOR) HLA Class I DNA (ABC) Recipient Received Blood 07/29/2024 11:0 1 AM DIE ENGRAVING SUPERVISOR 07/29/2024 11:56 AM DIE ENGRAVING SUPERVISOR Jossie King MD LAB BLOOD ORDERABL ES Final Result Performing Organization Address [facility] Co de Phone Number [facility]ESSANDR[facility] Department [place] [address] * LR HLA Typing (Class I and Class II) (07/29/2024 11:01 AM DIE ENGRAVING SUPERVISOR) r-SSO HISTOTRAC A First [place] A*03 [...] 07/30/24 [facility] Blood 07/29/2024 11:0 1 AM DIE ENGRAVING SUPERVISOR 08/02/2024 9:03 AM DIE ENGRAVING SUPERVISOR Narrative [facility] - 08/02/2024 9:03 AM DIE ENGRAVING SUPERVISOR DNA was extracted from whole blood or buccal cell specimens, and relevant genomic regions were amplified by polymerase chain reactions (PCR). HLA typing was performed on PCR amplicons using reverse sequence-specific oligonucleotide (r-SSO) and/or sequence-specific primers (SSP) based techniques. r-SSO and SSP are FDA approved as IVD tests and validated by the [facility] HLA Laboratory. Testing performed at the [facility] Laboratory, [address] [place] [address], 5th floor, [place], [address]. [place] # [id number]. Dorothy Meade, Ph.D., Marine Engine Driver, HLA Laboratory Rell Samuels M.D., Ph.D., Seasoner Hand, HLA Laboratory Licha Nieto, Ph.D., CLIA Seasoner Hand, [facility] Clinical Laboratories Current methodology comment last revised on 04/25/17. Jossie King MD LAB BLOOD ORDERABL ES Final Result [facility] * (ABNORMAL) Uric acid (07/29/2024 11:01 AM DIE ENGRAVING SUPERVISOR) Pathologist [facility] Uric acid 2.0(L) 3.0 - 8.0 mg/dL Blood 07/29/2024 11:0 1 AM DIE ENGRAVING SUPERVISOR 07/29/2024 11:33 AM DIE ENGRAVING SUPERVISOR Narrative [facility] - 07/29/2024 12:10 PM DIE ENGRAVING SUPERVISOR This lab is being obtained as part of a Kidney transplant evaluation, is time sensitive, and should only be drawn during the evaluation visit at [address] Jossie King MD LAB BLOOD ORDERABL ES Final Result Performing Organization Address [facility] de Phone Number [facility] Department [place] [address] * Varicella Zoster IgG antibody Blood (07/29/2024 11:01 AM DIE ENGRAVING SUPERVISOR) [facility] VZV IgG Reactive Reactive Comment:Reactive: Results diego ggest response to immunization or prior exposure to the virus. Blood 07/29/2024 11:0 1 AM DIE ENGRAVING SUPERVISOR 07/29/2024 11:33 AM DIE ENGRAVING SUPERVISOR Narrative [facility] 07/29/2024 1:45 PM DIE ENGRAVING SUPERVISOR This lab is being obtained as part of a Kidney transplant evaluation, is time sensitive, and should only be drawn during the evaluation visit at [address] Jossie King MD LAB MICROBIOLOGY - GENERAL ORDERABLES Final Result Performing Organization Address [facility] Co de Phone Number [facility] Department [place] [address] * RPR Blood (07/29/2024 11:01 AM DIE ENGRAVING SUPERVISOR) Pathologist [facility] RPR Nonreactive Nonreactive Blood 07/29/2024 11:0 1 AM DIE ENGRAVING SUPERVISOR 07/29/2024 11:33 AM DIE ENGRAVING SUPERVISOR Narrative [facility] - 07/29/2024 12:34 PM DIE ENGRAVING SUPERVISOR This lab is being obtained as part of a Kidney transplant evaluation, is time sensitive, and should only be drawn during the evaluation visit at [address] Jossie King MD LAB MICROBIOLOGY - GENERAL ORDERABLES Final Result Performing Organization Address [facility] de Phone Number [facility] [place] [address] * (ABNORMAL) Protime-INR (07/29/2024 11:01 AM DIE ENGRAVING SUPERVISOR) Pathologist [facility] PT 50.6(H) 9.7 - 13.0 sec INR 4.54(H) 0.90 - 1.20 [facility] Comment: Interpretive data Oral anticoagulant therapeutic ranges: Venous thromboembolism prophylaxis or treatment: 2.0-3.0 CARDIOLOGY Standard range: 2.0-3.0 High-intensity range: 2.5-3.5 Refer to indication-specific guidelines for appropriate target ranges for prosthetic heart valve replacement. Current interpretive data was last revised on 2019. Blood 07/29/2024 11:0 1 AM DIE ENGRAVING SUPERVISOR 07/29/2024 11:32 AM DIE ENGRAVING SUPERVISOR Narrative [facility] 07/29/2024 11:42 AM DIE ENGRAVING SUPERVISOR This lab is being obtained as part of a Kidney transplant evaluation, is time sensitive, and should only be drawn during the evaluation visit at [address] Jossie King MD LAB BLOOD ORDERABL ES Final Result Performing Organization Address [facility] de Phone Number [facility] [place] [address] * Protein, urine, random (07/29/2024 11:01 AM DIE ENGRAVING SUPERVISOR) Pathologist [facility] [place] Protein, ur, quant 121.2 mg/dL Comment: Interpretive Data No reference range established. Current interpretive data was last revised 2019. Urine 07/29/2024 11:0 1 AM DIE ENGRAVING SUPERVISOR 07/29/2024 11:32 AM DIE ENGRAVING SUPERVISOR Narrative [facility] 07/29/2024 12:18 PM DIE ENGRAVING SUPERVISOR This lab is being obtained as part of a Kidney transplant evaluation, is time sensitive, and should only be drawn during the evaluation visit at [address] Lab. Jossie King MD LAB URINE ORDERABL ES Final Result Performing Organization Address [facility] de Phone Number [facility] [place] [address] * (ABNORMAL) Phosphorus (07/29/2024 11:01 AM DIE ENGRAVING SUPERVISOR) Phosphorus, pl 5.1(H) 2.3 - 4.5 mg/dL Blood 07/29/2024 11:0 1 AM DIE ENGRAVING SUPERVISOR 07/29/2024 11:33 AM DIE ENGRAVING SUPERVISOR Narrative [facility] 07/29/2024 12:10 PM DIE ENGRAVING SUPERVISOR This lab is being obtained as part of a Kidney transplant evaluation, is time sensitive, and should only be drawn during the evaluation visit at [address] Lab[address] Jossie King MD LAB BLOOD ORDERABL ES Final Result Performing Organization Address [facility] [place] [address] * (ABNORMAL) aPTT (07/29/2024 11:01 AM DIE ENGRAVING SUPERVISOR) aPTT 61(H) 28 - 38 sec Comment: Interpretive Data Heparin therapeutic range: 66.0 - 100.0 seconds. Range based on correlation with therapeutic heparin activity range of 0.3 - 0.7 Units/mL. Current interpretive data was last revised on 2023. Blood 07/29/2024 11:0 1 AM DIE ENGRAVING SUPERVISOR 07/29/2024 11:32 AM DIE ENGRAVING SUPERVISOR Narrative [facility] 07/29/2024 11:42 AM DIE ENGRAVING SUPERVISOR This lab is being obtained as part of a Kidney transplant evaluation, is time sensitive, and should only be drawn during the evaluation visit at [address] Jossie King MD LAB BLOOD ORDERABL ES Final Result Performing Organization Address [facility] de Phone Number [facility] [place] [address] * (ABNORMAL) PTH (07/29/2024 11:01 AM DIE ENGRAVING SUPERVISOR) [facility] PTH 444(H) 15 - 65 pg/mL Blood 07/29/2024 11:0 1 AM DIE ENGRAVING SUPERVISOR 07/29/2024 11:34 AM DIE ENGRAVING SUPERVISOR Narrative [facility] - 07/29/2024 12:02 PM DIE ENGRAVING SUPERVISOR This lab is being obtained as part of a Kidney transplant evaluation, is time sensitive, and should only be drawn during the evaluation visit at [address] Lab. Jossie King MD LAB BLOOD ORDERABL ES Final Result Performing Organization Address [facility] de Phone Number [facility] Department [place] [address] * (ABNORMAL) Lipid panel (07/29/2024 11:01 AM DIE ENGRAVING SUPERVISOR) [facility] Cholesterol 114 30 - 199 mg/dL Comment: [...] 2018. Triglycerides 66 <=149 mg/dL [facility] Comment: Interpretive Data Ages < [...] 2018. HDL 29(L) >=40 mg/dL [facility] Comment: Interpretive Data Ages < [...] LDL, calculated 71 <=129 mg/dL [facility] Comment: Interpretive Data Ages < [...] 2024. Non-HDL Cholesterol 85 mg/dL [facility] Comment: Interpretive Data Ages < [...] on 2018. Chol/HDL ratio 4 [facility] Blood 07/29/2024 11:0 1 AM DIE ENGRAVING SUPERVISOR 07/29/2024 11:33 AM DIE ENGRAVING SUPERVISOR Narrative [facility] - 07/29/2024 12:10 PM DIE ENGRAVING SUPERVISOR This lab is being obtained as part of a Kidney transplant evaluation, is time sensitive, and should only be drawn during the evaluation visit at [facility] 3CAM Lab. Jossie King MD LAB BLOOD ORDERABL ES Final Result Performing Organization Address [facility] Co de Phone Number [facility] [place] [address] * (ABNORMAL) Iron profile w/ IBC (07/29/2024 11:01 AM DIE ENGRAVING SUPERVISOR) [facility] Iron 62 50 - 150 mcg/dL TIBC 208(L) 250 - 400 mcg/dL [facility] Transferrin saturation 30 20 - 50 % [facility] Blood 07/29/2024 11:0 1 AM DIE ENGRAVING SUPERVISOR 07/29/2024 11:33 AM DIE ENGRAVING SUPERVISOR Narrative [facility] - 07/29/2024 12:10 PM DIE ENGRAVING SUPERVISOR This lab is being obtained as part of a Kidney transplant evaluation, is time sensitive, and should only be drawn during the evaluation visit at [address] Lab. Jossie King MD LAB BLOOD ORDERABL ES Final Result Performing Organization Address [facility] de Phone Number [facility] [place] [address] * Hepatitis C antibody Blood (07/29/2024 11:01 AM DIE ENGRAVING SUPERVISOR) [facility] Hep C Ab Nonreactive Nonreactive Comment:Antibodies to HCV no t detected. Does NOT exclude the possibility of recent exposure to HCV. Current interpretive data was last revised on 22 Blood 07/29/2024 11:0 1 AM DIE ENGRAVING SUPERVISOR 07/29/2024 11:32 AM DIE ENGRAVING SUPERVISOR Narrative [facility] - 07/29/2024 12:47 PM DIE ENGRAVING SUPERVISOR This lab is being obtained as part of a Kidney transplant evaluation, is time sensitive, and should only be drawn during the evaluation visit at [address] Lab. Jossie King MD LAB MICROBIOLOGY - GENERAL ORDERABLES Final Result Performing Organization Address [facility] Co de Phone Number [facility] [place] [address] * Hepatitis B Surface Antigen Blood (07/29/2024 11:01 AM DIE ENGRAVING SUPERVISOR) Pathologist [facility] HepBsAg Nonreactive Nonreactive Blood 07/29/2024 11:0 1 AM DIE ENGRAVING SUPERVISOR 07/29/2024 11:32 AM DIE ENGRAVING SUPERVISOR Narrative [facility]DRA [facility] - 07/29/2024 12:47 PM DIE ENGRAVING SUPERVISOR This lab is being obtained as part of a Kidney transplant evaluation, is time sensitive, and should only be drawn during the evaluation visit at [address] Lab. Jossie King MD LAB MICROBIOLOGY - GENERAL ORDERABLES Final Result Performing Organization Address City/[facility] Co de Phone Number [facility] [place] [address] * Hepatitis B surface antibody (immune status) Blood (07/29/2024 11:01 AM DIE ENGRAVING SUPERVISOR) [facility] HBsAb (immune status) Reactive Comment:This result is consi stent with immunity to Hepatitis B Virus when used in the setting of routine screening. Current interpretive data was last revised on 22 Blood 07/29/2024 11:0 1 AM DIE ENGRAVING SUPERVISOR 07/29/2024 11:32 AM DIE ENGRAVING SUPERVISOR Narrative ALESSANDRA [facility] - 07/29/2024 12:47 PM DIE ENGRAVING SUPERVISOR This lab is being obtained as part of a Kidney transplant evaluation, is time sensitive, and should only be drawn during the evaluation visit at [address] Jossie King MD LAB MICROBIOLOGY - GENERAL ORDERABLES Final Result [facility] [employer] [address] * Hepatitis B core antibody, total Blood (07/29/2024 11:01 AM DIE ENGRAVING SUPERVISOR) [facility] Hep B core IgG/IgM Nonreactive Nonreactive Blood 07/29/2024 11:0 1 AM DIE ENGRAVING SUPERVISOR 07/29/2024 11:32 AM DIE ENGRAVING SUPERVISOR Narrative [facility] - 07/29/2024 12:47 PM DIE ENGRAVING SUPERVISOR This lab is being obtained as part of a Kidney transplant evaluation, is time sensitive, and should only be drawn during the evaluation visit at [address] Result [facility] Jossie King MD LAB MICROBIOLOGY - GENERAL ORDERABLES Final Result Performing Organization Address [facility] de Phone Number [facility] Department [place] [address] * (ABNORMAL) Hemoglobin A1c (07/29/2024 11:01 AM DIE ENGRAVING SUPERVISOR) [facility] Hgb A1C 9.0(H) 4.0 - 5.6 % Estimated Average Glucose 212 mg/dL [facility] Comment: The ADA recommends reporting an estimated Average Glucose (eAG) with all Hemoglobin A1c results using the equation derived from a study of 507 normal and diabetic adults. ??Minority populations were underrepresented and children were not included. ?? (Diabetes Care 2020; 43(S1): S66-S76). ??The eAG is not equivalent to a fasting glucose. Blood 07/29/2024 11:0 1 AM DIE ENGRAVING SUPERVISOR 07/29/2024 11:34 AM DIE ENGRAVING SUPERVISOR Narrative [facility] - 07/29/2024 11:53 AM DIE ENGRAVING SUPERVISOR This lab is being obtained as part of a Kidney transplant evaluation, is time sensitive, and should only be drawn during the evaluation visit at [address] Jossie King MD LAB BLOOD ORDERABL ES Final Result Performing Organization Address [facility] de Phone Number [facility] [place] [address] * HSV 2 IgG Antibody Blood (07/29/2024 11:01 AM DIE ENGRAVING SUPERVISOR) [facility] HSV 2 IgG Nonreactive Nonreactive Comment: Interpretive Data 1. Nonreactive: No detectable IgG antibody to HSV-2. 2. Equivocal: Presence or absence of detectable antibodies to HSV-2 cannot be determined and the test should be repeated. 3. Reactive: Indicates presence of detectable IgG antibody to HSV-2. Current interpretive data was last revised on 2022. Blood 07/29/2024 11:0 1 AM DIE ENGRAVING SUPERVISOR 07/29/2024 11:33 AM DIE ENGRAVING SUPERVISOR Narrative [facility] - 07/29/2024 1:44 PM DIE ENGRAVING SUPERVISOR This lab is being obtained as part of a Kidney transplant evaluation, is time sensitive, and should only be drawn during the evaluation visit at [address] Jossie King MD LAB MICROBIOLOGY - GENERAL ORDERABLES Final Result [facility] [place] [address] * (ABNORMAL) HSV 1 IgG Antibody Blood (07/29/2024 11:01 AM DIE ENGRAVING SUPERVISOR) Pathologist [facility] [place] HSV 1 [...] on 2016. Blood 07/29/2024 11:0 1 AM DIE ENGRAVING SUPERVISOR 07/29/2024 11:33 AM DIE ENGRAVING SUPERVISOR Narrative [facility] - 07/29/2024 1:44 PM DIE ENGRAVING SUPERVISOR This lab is being obtained as part of a Kidney transplant evaluation, is time sensitive, and should only be drawn during the evaluation visit at [address] Lab. Jossie King MD LAB MICROBIOLOGY - GENERAL ORDERABLES Final Result [facility] [place] [address] * HIV 1/2 Antibody plus p24 Antigen Blood (07/29/2024 11:01 AM DIE ENGRAVING SUPERVISOR) Pathologist [facility] [place] HIV 1/2 ab + p24 ag Nonreactive Nonreactive Comment:Nonreactive for HIV- 1 antigen and HIV-1/HIV-2 antibodies. No laboratory evidence of HIV infection. If acute HIV infection is suspected, consider testing for HIV-1 RNA. Current interpretive data was last revised on 22. Blood 07/29/2024 11:0 1 AM DIE ENGRAVING SUPERVISOR 07/29/2024 11:32 AM DIE ENGRAVING SUPERVISOR Narrative [facility] - 07/29/2024 12:13 PM DIE ENGRAVING SUPERVISOR This lab is being obtained as part of a Kidney transplant evaluation, is time sensitive, and should only be drawn during the evaluation visit at [address]. Jossie King MD LAB MICROBIOLOGY - GENERAL ORDERABLES Final Result Performing Organization Address [facility] Co de Phone Number [facility] Department [place] [address] * Gamma GT (07/29/2024 11:01 AM DIE ENGRAVING SUPERVISOR) Pathologist [facility] [place] GGT 22 10 - 50 Units/L Blood 07/29/2024 11:0 1 AM DIE ENGRAVING SUPERVISOR 07/29/2024 11:33 AM DIE ENGRAVING SUPERVISOR Narrative [facility] - 07/29/2024 12:40 PM DIE ENGRAVING SUPERVISOR This lab is being obtained as part of a Kidney transplant evaluation, is time sensitive, and should only be drawn during the evaluation visit at [address] Jossie King MD LAB BLOOD ORDERABL ES Final Result Performing Organization Address [facility] Co de Phone Number [facility] [place] [address] * (ABNORMAL) Ferritin (07/29/2024 11:01 AM DIE ENGRAVING SUPERVISOR) Pathologist [facility] [place] Ferritin 761(H) 30 - 400 ng/mL Blood 07/29/2024 11:0 1 AM DIE ENGRAVING SUPERVISOR 07/29/2024 11:33 AM DIE ENGRAVING SUPERVISOR Narrative [facility] - 07/29/2024 12:10 PM DIE ENGRAVING SUPERVISOR This lab is being obtained as part of a Kidney transplant evaluation, is time sensitive, and should only be drawn during the evaluation visit at [address] Lab. Jossie King MD LAB BLOOD ORDERABL ES Final Result Performing Organization Address [facility] de Phone Number [facility] Department [place] [address] * (ABNORMAL) Madiha-Ca virus (EBV) antibody panel Blood (07/29/2024 11:01 AM DIE ENGRAVING SUPERVISOR) [facility] EBV nuclear Ab Positive(A) Negative Comment:Indicates the presen ce of detectable IgG antibody to EBV Nuclear Antigen. EBV VCA IgG Positive(A) Negative [facility] Comment:Indicates the presen ce of antibody; 90% of the adult population will have been infected with EBV sometime in the past. EBV VCA IgM Negative Negative [facility] Comment:No detectable IgM an tibody to EBV-VCA. A negative result indicates no current infection with EBV. If clinical suspicion of acute EBV infection is present, testing should be repeated after one week. EBV interp Past Infection [facility] Blood 07/29/2024 11:0 1 AM DIE ENGRAVING SUPERVISOR 07/29/2024 11:33 AM DIE ENGRAVING SUPERVISOR Narrative [facility] - 07/29/2024 1:43 PM DIE ENGRAVING SUPERVISOR This lab is being obtained as part of a Kidney transplant evaluation, is time sensitive, and should only be drawn during the evaluation visit at [address] Lab. Jossie King MD LAB MICROBIOLOGY - GENERAL ORDERABLES Final Result Performing Organization Address [facility] Co de Phone Number [facility] Department [place] [address] * Creatinine, urine, random (07/29/2024 11:01 AM DIE ENGRAVING SUPERVISOR) [facility] Creatinine Ur 167.1 mg/dL Comment: Interpretive Data No reference range established. Current interpretive data was last revised 2019. Urine 07/29/2024 11:0 1 AM DIE ENGRAVING SUPERVISOR 07/29/2024 11:32 AM DIE ENGRAVING SUPERVISOR Narrative [facility] - 07/29/2024 12:18 PM DIE ENGRAVING SUPERVISOR This lab is being obtained as part of a Kidney transplant evaluation, is time sensitive, and should only be drawn during the evaluation visit at [facility] Lab. Jossie King MD LAB URINE ORDERABL ES Final Result [facility] Department [place] [address] * (ABNORMAL) Comprehensive metabolic panel (07/29/2024 11:01 AM DIE ENGRAVING SUPERVISOR) Sodium 136 135 - 145 mmol/L Potassium, pl 4.6 3.3 - 4.9 mmol/L [facility] Chloride 93(L) 97 - 110 mmol/L [facility] CO2 26 22 - 32 mmol/L [facility] Anion gap 17(H) 2 - 15 mmol/L [facility] BUN 65(H) 6 - 25 mg/dL [facility] Creatinine 8.07(H) 0.80 - 1.30 mg/dL [facility] Glucose 280(H) 70 - 199 mg/dL [facility] Comment: Interpretive Data Fasting glucose [...] 9.4 8.5 - 10.3 mg/dL [facility] Bilirubin, total 0.3 0.1 - 1.2 mg/dL [facility] Protein, pl 7.2 6.5 - 8.5 g/dL [facility] Albumin 3.8 3.5 - 5.0 g/dL [facility] Alk phos 99 40 - 130 Units/L [facility] ALT 30 7 - 55 Units/L [facility] AST 31 10 - 50 Units/L [facility] Blood 07/29/2024 11:0 1 AM DIE ENGRAVING SUPERVISOR 07/29/2024 11:33 AM DIE ENGRAVING SUPERVISOR Narrative [facility] - 07/29/2024 12:10 PM DIE ENGRAVING SUPERVISOR This lab is being obtained as part of a Kidney transplant evaluation, is time sensitive, and should only be drawn during the evaluation visit at [address] Jossie King MD LAB BLOOD ORDERABL ES Final Result Performing Organization Address [facility] Co de Phone Number [facility] [place] [address] * (ABNORMAL) CMV, IgG Blood (07/29/2024 11:01 AM DIE ENGRAVING SUPERVISOR) Pathologist [facility] [place] CMV IgG Positive( A) Negative Comment: Interpretive [...] CMV infection. Blood 07/29/2024 11:0 1 AM DIE ENGRAVING SUPERVISOR 07/29/2024 11:33 AM DIE ENGRAVING SUPERVISOR Narrative [facility] - 07/29/2024 1:44 PM DIE ENGRAVING SUPERVISOR This lab is being obtained as part of a Kidney transplant evaluation, is time sensitive, and should only be drawn during the evaluation visit at [address] Jossie King MD LAB MICROBIOLOGY - GENERAL ORDERABLES Final Result Performing Organization Address City/[facility]/ZIP Co de Phone Number [facility] Department [place] [address] * (ABNORMAL) CBC with auto differential (07/29/2024 11:01 AM DIE ENGRAVING SUPERVISOR) [facility] WBC 5.1 3.8 - 9.9 K/cumm Hgb 11.5(L) 13.0 - 17.5 g/dL [facility] Hct 34.4(L) 38.9 - 50.3 % [facility] Plt 208 150 - 400 K/cumm [facility] MPV 10.8 9.1 - 12.3 fL [facility] RBC 3.76(L) 4.30 - 5.80 M/cumm [facility] MCV 91.5 81.3 - 96.4 fL [facility] MCH 30.6 27.1 - 33.3 pg [facility] MCHC 33.4 32.3 - 35.7 g/dL [facility] RDW CV 14.3 11.1 - 14.9 % [facility] RDW SD 47.9 35.7 - 48.1 fL [facility] NRBC abs 0.00 0.00 - 0.01 K/cumm [facility] Blood 07/29/2024 11:0 1 AM DIE ENGRAVING SUPERVISOR 07/29/2024 11:34 AM DIE ENGRAVING SUPERVISOR Narrative [facility] - 07/29/2024 11:45 AM DIE ENGRAVING SUPERVISOR This lab is being obtained as part of a Kidney transplant evaluation, is time sensitive, and should only be drawn during the evaluation visit at [facility]CAM Lab. us Jossie King MD LAB BLOOD ORDERABL ES Final Result [facility] Department [place] [address] * (ABNORMAL) Urinalysis reflex to microscopic (07/29/2024 10:53 AM DIE ENGRAVING SUPERVISOR) Color, ur Yellow Yellow Clarity, ur Cloudy(A) Clear [facility] Specific gravity, ur 1.022 1.003 - 1.030 [facility] pH, urine 6.0 [facility] Comment: Interpretive Data ? Urine pH is affected by diet, medications, systemic acid-base disturbances, and renal tubular function. ??pH may affect urinary stone formation. ??For example, urine pH below 6.0 may help reduce the tendency for calcium phosphate stones and pH greater than 6.0 may reduce the tendency for uric acid stone formation. Source: [facility] Current Interpretive Data was last revised on 2017 Protein, ur ql 2+(A) Negative [facility] Glucose, ur ql 4+(A) Negative [facility] Ketones, ur Negative Negative [facility] Bilirubin, ur Negative Negative [facility] Blood, ur 3+(A) Negative [facility] Urobilinogen, ur <2.0 <2.0 mg/dL [facility] Nitrite, ur Negative Negative [facility] Leukocyte esterase, ur 2+(A) Negative [facility] UA reflex comment Reflex to microscopic UA will be performed. [facility] Urine 07/29/2024 10:5 3 AM DIE ENGRAVING SUPERVISOR 07/29/2024 11:27 AM DIE ENGRAVING SUPERVISOR Narrative [facility] - 07/29/2024 11:29 AM DIE ENGRAVING SUPERVISOR This lab is being obtained as part of a Kidney transplant evaluation, is time sensitive, and should only be drawn during the evaluation visit at [facility]CAM Lab. Jossie King MD LAB URINE ORDERABL ES Final Result [facility] Department [place] [address] documented in this encounter Visit Diagnoses Diagnosis [...] documented in this encounter Care Teams Manager College Relationship Specialty Start Date End Date Aditya Castro MD [address] [facility] [place] [address] PCP - General 10/17/19 Alondra Lambert, RN [address] [facility] [address] [place] [address] Policy Issue Clerk 03/06/24 Hamlet Ortega Jr., MD [address] [place] [address] Consulting Physician Cardiovascular Disease 05/10/24 documented as of this encounter
--- OUTSIDE RECORDS SUMMARY | 2024-09-07 23:33 | XMS_ITS | Encounter Summary ---
Author Organization [facility] Healthcare Address [address] [place] [address] Care Team Providers Care Remote Sensing Specialist Name Role Phone Aditya Castro MD Primary Care Provider [phone] Reason for Visit * Reason Onset Date Comments Anticoagulation 11/16/2023 Encounter Details Date Type Department Care Team (Late st Contact Info) Description 11/16/2023 Telephone Cardiovascular and Thoracic Surgery [address] [facility] [address] [place] [address] Margoth Grewal RN [address] [facility] [address] [address] Anticoagulation Social History Tobacco Use [...] materials from doctor or pharmacy Never 11/05/2023 [facility] Utilities Answer Date Recorded In the past 12 months has e [employer], [employer], or [employer] threatened to shut off services in your [...] any clubs o r organizations such as christianity groups, unions, fraternal or athletic groups, or [...] on file Legal 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
--- OUTSIDE RECORDS SUMMARY | 2024-09-07 23:33 | XMS_ITS | Encounter Summary ---
Author Organization [facility] Healthcare Address [address] [place] [address] Care Team Providers Care Blast Furnace Auxiliaries Supervisor Name Role Phone Aditya Castro MD Primary Care Provider [phone] Alondra Lambert RN Unavailable [phone] Encounter Details Date Type Department Care Team (Late st Contact Info) Description 05/02/2024 Documentation [facility] Transplant Kidney [address] [facility] [address] [phone] [place] [address] Melany Kelly Social History Tobacco Use Types [...] from doctor or pharmacy Never 12/01/2023 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 documented in this encounter Plan of Treatment Not on file documented as of this encounter Visit Diagnoses Not on filedocumented in this encounter Care Teams Blast Furnace Auxiliaries Supervisor Relationship Specialty Start Date End Date Aditya Castro MD [address] [facility] [place] [address] PCP - General 10/17/19 Alondra Lambert, RN [address] [facility] [address] [place] [address] Drum Saw Operator 03/06/24 documented as of this encounter
--- OUTSIDE RECORDS SUMMARY | 2024-09-07 23:33 | XMS_ITS | Encounter Summary ---
Author Organization [facility] Healthcare Address [address] [place] [address] Care Team Providers Care Implant Polisher Name Role Phone Aditya Castro MD Primary Care Provider [phone] Reason for Visit * Auth/Cert (Routine) Specialty Diagnoses / Procedures Referred By Aguilar t Referred To Contact Referral ID Status Reason Start Date Expiration Date Visits Re quested Visits Authorized [id number] 1 1 Encounter Details Date Type Department Care Team (Latest Contact Info) Description 11/05/2023 9:00 AM CDT Home Care Visit [address] [place] [address] Miriam Syed RN SN OASIS START OF [...] materials from doctor or pharmacy Never 11/05/2023 [facility] Utilities Answer Date [...] file Legal Sex Male 3:42 AM CASH PERSON Gender Identity Not on file Sexual Orientation [...] Body Mass Index 38.31 10/17/2023 12:52 PM CASH PERSON documented in this encounter Miscellaneous Notes * [...] at time of Medication reconciliation, weekly medication wedding planner filled by SN at visit with patient Re-hospitalization risk: high Barriers to care/social determinants: None RECOMMENDATIONS POC confirmed with Dr.: Lorne Mcnulty MD Plan for my discipline: SN for CAD post-op follow, wound care, disease process management & education, medication management Other disciplines ordered/recommended: [facility] Supply/HME/equipment needs or issues: [...] patient does not have cognitive impairments, then [id number] would not apply. M1800 - Grooming 1- [...] guidance, if patient requires standby assistance (a ??non profit director??) to dress safely or requires verbal cueing/reminders due to physical/cognitive/environmental barriers to complete task safely, then Code 2. M1820 - Dress Lower Body 1- some help 2- needs assist Changed from 1 to 2. SN OASIS - noted needs minimum assist to dress lower body. According to OASIS guidance, if patient requires standby assistance (a ??non profit director??) to dress safely or requires verbal cueing/reminders [...] -SN OASIS Start o f Care Discipline -[facility] Problems Problem [...] home health visit Disciplines: SN, PT, OT, PANEL CUTTER, MANAGER OF EMPLOYEE RELATIONS, Skilled Disciplines Monitor patient's vital signs every [...] visit during episode of care Description: Home bakery sales clerk to measure vital signs during every [...] Time Not timed lab. Fax results to oLrne Mcnulty MD. Ordering Lorne Jeffers MD. Record [...] Scheduled documented in this encounter Care Teams Implant Polisher Relationship Specialty Start Date End Date Aditya Castro MD [address] [facility] [place] [address] PCP - General 10/17/19 documented as of this encounter
--- OUTSIDE RECORDS SUMMARY | 2024-09-07 23:33 | XMS_ITS | Encounter Summary ---
Author Organization [facility] Healthcare Address [address] [place] [address] Care Team Providers Care Location Director Name Role Phone Aditya Castro MD Primary Care Provider [phone] Reason for Visit * Reason Onset Date Comments Anticoagulation 11/13/2023 Encounter Details Date Type Department Care Team (Late st Contact Info) Description 11/13/2023 Telephone Cardiovascular and Thoracic Surgery [address] [facility] [address] [place] [address] Margoth Grewal RN [address] [facility] [address], [place] [address] Anticoagulation Social History Tobacco Use [...] materials from doctor or pharmacy Never 11/05/2023 [facility] Utilities Answer Date Recorded In the past 12 months has e [employer], [employer], or 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 Mcnulty Contact: Miriam with [facility] Home Care calling to report INR 2.1. New dosing instructions INR 2.1 Continue Coumadin 2 mg daily for ON-X mechanical AVR. Recheck INR 11/16/23. Miriam will instruct pt. documented in this encounter Plan of Treatment Not on file documented as of this encounter Visit Diagnoses Not on filedocumented in this encounter Care Teams Location Director Relationship Specialty Start Date End Date Aditya Castro MD [address] [place] [address] [place] [address] PCP - General 10/17/19 documented as of this encounter
--- OUTSIDE RECORDS SUMMARY | 2024-09-07 23:33 | XMS_ITS | Encounter Summary ---
Author Organization [facility] Healthcare Address [address] [place] [address] Care Team Providers Care Mechanical Service Specialist Name Role Phone Aditya Castro MD Primary Care Provider [phone] Reason for Visit * Auth/Cert (Routine) Specialty Diagnoses / Procedures Referred By Aguilar t Referred To Contact Referral ID Status Reason Start Date Expiration Date Visits Re quested Visits Authorized [id number] 1 1 Encounter Details Date Type Department Care Team (Late st Contact Info) Description 11/16/2023 12:00 PM CDT Home Care Visit [address] [place] [address] Miriam Syed RN SN HOME VISIT Social [...] from doctor or pharmacy Never 11/05/2023 [facility] Utilities Answer Date Recorded In the past 12 months has th e [employer], gas, oil, or water company threatened [...] on file Legal 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
--- OUTSIDE RECORDS SUMMARY | 2024-09-07 23:33 | XMS_ITS | Encounter Summary ---
Author Organization [facility] Healthcare Address [address] [place] [address] Care Team Providers Care Croze Machine Operator Name Role Phone Aditya Castro MD Primary Care Provider [phone] Alondra Lambert RN Unavailable [phone] Shannon Brock MD, Hamlet Gordon Unavailable [phone] Encounter Details Date Type Department Care Team (Late st Contact Info) Description 05/10/2024 Telephone [facility] Transplant Kidney [address] 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
--- OUTSIDE RECORDS SUMMARY | 2024-09-07 23:33 | XMS_ITS | Encounter Summary ---
Author Organization [facility] Healthcare Address [address] [place] [address] Care Team Providers Care Store Stock Help Name Role Phone Aditya Castro MD Primary Care Provider [phone] Reason for Visit * Reason Onset Date Comments Anticoagulation 12/01/2023 Encounter Details Date Type Department Care Team (Late st Contact Info) Description 12/01/2023 Telephone Cardiovascular and Thoracic Surgery [address] [facility] [address] [place] [address] Licha Jenkins NP [address] [facility] [address] [place] [address] Anticoagulation Social History Tobacco Use [...] doctor or pharmacy Never 12/01/2023 [facility] Utilities Answer Date Recorded In the past 12 months has th e [employer], [employer], or [employer] threatened to shut off services in your [...] on file Legal 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 INR today is 1.5. Pt has an On-x mechanical valve. Current warfarin dose is 4 mg on MWF and 3 mg the rest. He will take 6 mg today and then 4 mg daily. He sees his generalist on Monday and they will take over his anticoagulation management. He is discharged from home health after today. documented in this encounter Plan of Treatment Not on file documented as of this encounter Visit Diagnoses Not on filedocumented in this encounter Care Teams Store Stock Help Relationship Specialty Start Date End Date Aditya Castro MD [address] [facility] [place] [address] PCP - General 10/17/19 documented as of this encounter
--- OUTSIDE RECORDS SUMMARY | 2024-09-07 23:33 | XMS_ITS | Encounter Summary ---
Author Organization [facility] Healthcare Address [address] [place] [address] Care Team Providers Care Wood Cutter Name Role Phone Aditya Castro MD Primary Care Provider Reason for Visit * Auth/Cert (Routine) Specialty Diagnoses / Procedures Referred By Aguilar t Referred To Contact Referral ID Status Reason Start Date Expiration Date Visits Re quested Visits Authorized [id number] 1 1 Encounter Details Date Type Department Care Team (Late st Contact Info) Description 12/01/2023 10:30 AM CDT Home Care Visit [address] [place] [address] Miriam Syed RN SN OASIS DISCHARGE Social [...] doctor or pharmacy Never 12/01/2023 [facility] Utilities Answer Date Recorded In the past 12 months has th e [employer], gas, oil, or water company threatened [...] on file Legal 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 Male 3: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 DRAWER IN JACQUARD LOOM Gender Identity Not on file Sexual Orientation [...] with no concerns, scabs in place and PERSONNEL SCHEDULER Patient aware to f/u with PCP for [...] Visit Type -SN OASIS Dischar ge Discipline -Retirement Problems Problem Description Start Date Status Goals Interve ntions Homebound Status Disciplines: Skilled Disciplines Patient's homebound status 11/05/2023 Resolved on 12/01/2023 1 goal linked to scheduled/docume nted intervention 1 goal intervention scheduled/documen marcelo in this visit Medications Disciplines: Retirement Management of home medications 11/05/2023 Resolved on 12/01/2023 1 goal linked to scheduled/docume nted intervention 2 goal interventions scheduled/documen marcelo in this visit Monitor patient's vital signs every home health visit Disciplines: SN, PT, OT, UNIX SYSTEM ADMINISTRATOR, SWING RIDE OPERATOR, Skilled Disciplines Monitor patient's vital signs every [...] visit during episode of care Description: Home an/ssn 2 4 operator to measure vital signs during every home health visit during episode of care. Monitor patient's vital signs every home health visit Adequate for Discharge No Home an/ssn 2 4 operator to measure vital signs during every [...] techniques. documented in this encounter Care Teams Wood Cutter Relationship Specialty Start Date End Date Aditya Castro MD [address] [facility] [place] [address] PCP - General 10/17/19 documented as of this encounter
--- OUTSIDE RECORDS SUMMARY | 2024-09-07 23:33 | XMS_ITS | Encounter Summary ---
Author Organization [facility] Healthcare Address [address] [place] [address] Care Team Providers Care Universal Grinder Set Up Operator Name Role Phone Aditya Castro MD Primary Care Provider [phone] Reason for Visit * Auth/Cert (Routine) Specialty Diagnoses / Procedures Referred By Aguilar t Referred To Contact Referral ID Status Reason Start Date Expiration Date Visits Re quested Visits Authorized [id number] 1 1 Encounter Details Date Type Department Care Team (Late st Contact Info) Description 11/20/2023 12:00 PM CDT Home Care Visit [address] [place] [address] Miriam Syed RN SN HOME VISIT Social [...] doctor or pharmacy Never 11/05/[address] [facility] Utilities Answer Date Recorded In the past 12 months has th e [employer], gas, oil, or water company threatened to [...] on file Legal Sex Male 3:42 AM ADVANCED REGISTERED NURSE Gender Identity Not on file Sexual Orientation [...] Details Visit Type -SN Home Visit Discipline -Long-Term Problems Problem Description Start Date Status Goals Interve ntions Homebound Status Disciplines: Skilled Disciplines Patient's homebound status 11/05/2023 Active 1 goal linked to scheduled/documen marcelo intervention 1 goal intervention scheduled/documen marcelo in this visit Medications Disciplines: Long-Term Management of home medications 11/05/2023 Active 1 goal linked to scheduled/documen marcelo intervention 2 goal interventions scheduled/documen marcelo in this visit Monitor patient's vital signs every home health visit Disciplines: SN, PT, OT, PLASTIC BLOCK BOILER RELINER, DRAFTER AUTOMOTIVE DESIGN LAYOUT, Skilled Disciplines Monitor patient's vital signs every home health visit. 11/05/2023 Active 1 goal linked to scheduled/documen marcelo intervention 1 goal intervention scheduled/documen marcelo in this visit Labs Disciplines: Long-Term Management of specimen samples, including lab draws, [...] visit during episode of care Description: Home plastic boat buffer to measure vital signs during every home [...] Scheduled documented in this encounter Care Teams Universal Grinder Set Up Operator Relationship Specialty Start Date End Date Aditya Castro MD [address] [facility] [place] [address] PCP - General 10/17/19 documented as of this encounter
--- OUTSIDE RECORDS SUMMARY | 2024-09-07 23:33 | XMS_ITS | Encounter Summary ---
Author Organization [facility] Healthcare Address [address] [place] [address] Care Team Providers Care Assistant Professor Of Chemistry Name Role Phone Aditya Castro MD Primary Care Provider [phone] Encounter Details Date Type Department Care Team (Late st Contact Info) Description 11/04/2023 Telephone [facility] Home Care Services [address] [place] [address] Lissette Slade Social History Tobacco Use Types [...] doctor or pharmacy Never 11/05/2023 [facility] Utilities Answer Date Recorded In the past 12 months has [facility] [employer], gas, oil, or water company threatened to [...] any clubs o r organizations such as catholic groups, unions, fraternal or athletic groups, [...] on file 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 Interviewed patient via phone post hospitalization. [facility]. Confirmed homebound status. Informed patient that staff will be calling within 48 hours regarding an appointment. documented in this encounter Plan of Treatment Not on file documented as of this encounter Visit Diagnoses Not on filedocumented in this encounter Care Teams Assistant Professor Of Chemistry Relationship Specialty Start Date End Date Aditya Castro MD [address] [facility] DEPT [place] [address] PCP - General 10/17/19 documented as of this encounter
--- OUTSIDE RECORDS SUMMARY | 2024-09-07 23:33 | XMS_ITS | Encounter Summary ---
Author Organization [facility] Healthcare Address [address] [place] [address] Care Team Providers Care Access Service Representative Name Role Phone Aditya Castro MD Primary Care Provider [phone] Reason for Visit * Auth/Cert (Routine) Specialty Diagnoses / Procedures Referred By Aguilar t Referred To Contact Referral ID Status Reason Start Date Expiration Date Visits Re quested Visits Authorized [id number] 1 1 Encounter Details Date Type Department Care Team (Late st Contact Info) Description 11/23/2023 12:00 PM CDT Home Care Visit [address] [address] [address] [place] [address] Miriam Syed RN SN HOME VISIT Social [...] the past 12 months has th e [employer], gas, oil, or water company threatened [...] file 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 Gender Identity Not on file Sexual [...] 3 mg each evening dosing per Dr Coivngton INR nurse recheck 11/26 Discuss plan of [...] home health visit Disciplines: SN, PT, OT, PACKAGING SUPERVISOR, HOTEL BAGGAGE HANDLER, Skilled Disciplines Monitor patient's vital signs every [...] visit during episode of care Description: Home slot floorman to measure vital signs during every home [...] Scheduled documented in this encounter Care Teams Access Service Representative Relationship Specialty Start Date End Date Aditya Castro MD [address] [facility] [place] [address] PCP - General 10/17/19 documented as of this encounter
--- OUTSIDE RECORDS SUMMARY | 2024-09-07 23:33 | XMS_ITS | Encounter Summary ---
Author Organization [facility] Healthcare Address [address] [place] [address] Care Team Providers Care Acid Painter Name Role Phone Aditya Castro MD Primary Care Provider [phone] Reason for Visit * Reason Onset Date Comments Anticoagulation 11/09/2023 Encounter Details Date Type Department Care Team (Late st Contact Info) Description 11/09/2023 Telephone Cardiovascular and Thoracic Surgery [address] [facility] [address] [place] [address] Margoth Grewal RN [address] [facility] [address], [place] [address] Anticoagulation Social History Tobacco Use [...] materials from doctor or pharmacy Never 11/05/2023 [facility] Utilities Answer Date Recorded In the past 12 months has e [employer], [employer], or [employer] threatened to shut off services in your [...] often do you attend chur ch or worship services? 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 Mcnulty patient Contact: LUAN Pinead called to report an INR of 5.6 [...] filedocumented in this encounter Care Teams Acid Painter Relationship Specialty Start Date End Date Aditya Castro MD [address] [facility] DEPT [place] [address] PCP - General 10/17/19 documented as of this encounter
--- OUTSIDE RECORDS SUMMARY | 2024-09-07 23:33 | XMS_ITS | Encounter Summary ---
Author Organization [facility] Healthcare Address [address] [place] [address] Care Team Providers Care Heating Repair Technician Name Role Phone Aditya Castro MD Primary Care Provider [phone] Reason for Visit * Auth/Cert (Routine) Specialty Diagnoses / Procedures Referred By Aguilar t Referred To Contact Referral ID Status Reason Start Date Expiration Date Visits Re quested Visits Authorized [id number] 1 1 Encounter Details Date Type Department Care Team (Late st Contact Info) Description 11/09/2023 12:00 PM CDT Home Care Visit [address] [place] [address] Miriam Syed RN SN HOME VISIT Social [...] materials from doctor or pharmacy Never 11/05/2023 [facility] Utilities Answer Date Recorded In the past 12 months has th e [employer], gas, oil, or water company threatened to [...] on file 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
--- OUTSIDE RECORDS SUMMARY | 2024-09-07 23:33 | XMS_ITS | Encounter Summary ---
Author Organization [facility] Healthcare Address [address] [place] [address] Care Team Providers Care Bead Inspector Name Role Phone Aditya Castro MD Primary Care Provider [phone] Reason for Visit * Reason Onset Date Comments Anticoagulation 11/20/2023 Encounter Details Date Type Department Care Team (Late st Contact Info) Description 11/20/2023 Telephone Cardiovascular and Thoracic Surgery [address] [facility] [address] [place] [address] Margoth Grewal RN [address] [facility] [address], [place] [address] Anticoagulation Social History Tobacco Use [...] materials from doctor or pharmacy Never 11/05/2023 [facility] Utilities Answer Date Recorded In the past 12 months has e [employer], [employer], or [employer] threatened to shut off services in your [...] often do you attend chur ch or voodoo services? 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
--- OUTSIDE RECORDS SUMMARY | 2024-09-07 23:33 | XMS_ITS | Encounter Summary ---
Author Organization [facility] Healthcare Address [address] [place] [address] Care Team Providers Care Ore Crushing Dust Collector Name Role Phone Aditya Castro MD Primary Care Provider [phone] Encounter Details Date Type Department Care Team (Late st Contact Info) Description 11/16/2023 Telephone [facility] Case Management [address] [place] [address] Jose Manuel Moore BS Social [...] doctor or pharmacy Never 12/01/2023 [facility] Utilities Answer Date Recorded In [...] often do you attend chur ch or christianity services? 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 Patient denies any questions regarding medications at this time. Cardiac Rehab Facility: Was contacted by [facility] 411 Directory Assistance Operator Follow-up Appointment: Patient had a follow up [...] to schedule him in a few weeks. 411 Directory Assistance Operator Follow-up Appointment: Patient reports they see Dr. Mcnulty on 11/22/23 Readmission: Patient reports they have not been readmitted to a hospital since being discharged from [facility]. Will plan to make 30-60-day f/u [...] on filedocumented in this encounter Care Teams Ore Crushing Dust Collector Relationship Specialty Start Date End Date Aditya Castro MD [address] [facility] [place] [address] PCP - General 10/17/19 documented as of this encounter
--- OUTSIDE RECORDS SUMMARY | 2024-09-07 23:33 | XMS_ITS | Encounter Summary ---
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), CABGx3, Sternal Plating Encounter Details Date Type Department Care Team (Late st Contact Info) Description 11/22/2023 9:30 AM CDT Office Visit Cardiovascular and Thoracic Surgery [address] [facility] [address] [place] [address] Lorne Mcnulty MD [address] [facility] [address] [place] [address] 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 Teran within next month. Dr. Ramaden or your Primary care doctor needs to take over your Coumadin (warfarin) regulation and bloodwork Possible CoaguCheck machine for home blood test, ASK the doctor who will take over your anticoagulation if he/she will order this INR GOAL FOR ON-X MECHANICAL AORTIC VALVE REPLACEMENT: 2.0-2.5 UNTIL JANUARY 14 THEN CAN DECREASE INR GOAL TO 1.5-2.0 SNF Antibiotic Prophylaxis before dental visits for prevention of valve endocarditis Antibiotic Prophylaxis Taking an antibiotic before or immediately after a surgical procedure in order to prevent an infection is called antibiotic prophylaxis. It may be recommended by a primary doctor, a fire equipment inspector, or an orthopedist for patients who are [...] Care Everywhere. * Cardiac Rehabilitation (General Information) ([place]) documented in this encounter Progress Notes * [...] PUMP: Continue Omnipod 5 insulin pump with [employer] G6 CGM at home settings: TIME BASAL RATE TOTAL BASAL DAILY DOSE: 65.85 0330 1.7 units/hour 0800 0.8 units/hour 2000 5.8 units/hour, Disp: , Rfl: levothyroxine (SYNTHROID) 25 mcg tablet, Take 1 tablet (25 mcg total) by mouth admission nurse beforebreakfast, Disp: 30 tablet, Rfl: 1 metoprolol [...] for this visit: 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 heart with stable angina pectoris (CMS/HCC) (HCC) [...] only. Lorne Mcnulty MD Cardiothoracic Surgery [facility] documented in this encounter Plan of Treatment Not on file documented as of this encounter Visit Diagnoses Diagnosis 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 heart with stable angina pectoris (CMS/HCC) (HCC)- [...] documented as of this encounter Care Teams Tour Production Supervisor Relationship Specialty Start Date End Date Aditya Castro MD [address] [facility] [place] [address] PCP - General 10/17/19 documented as of this encounter
--- OUTSIDE RECORDS SUMMARY | 2024-09-07 23:33 | XMS_ITS | Encounter Summary ---
Author Organization [facility] Healthcare Address [address] [place] [address] Care Team Providers Care Swimming Pool Maintenance Name Role Phone Aditya Castro MD Primary Care Provider [phone] Alondra Lambert RN Unavailable [phone] Reason for Referral * Transplant (Routine) - Authorized Specialty Diagnoses / Procedures Referred By Contac t Referred To Contact Transplant Diagnoses ESRD (end stage renal disease) ([facility]) (HCC) Elizabeth Cardoso MD [address] [place] [address] Phone: tel: fax: [facility] Transplant Kidney [address] [facility][1] [address] [phone] [place] [address] Phone: tel: fax: Referral ID Status Reason Start Date Expiration Date Visits Requested Visits Authorized [id number] Authorized Specialty Services Required 03/06/2024 03/06/2034 1 1 Question Answer Organ Kidney [[id number]] Please select the performing region: [facility] [[id number]] Please select the performing department: [facility] KIDNEY TRANSPLANT [[id number]] Reason for Visit * Reason Onset Date Comments Referral - Kidney Txp 03/06/2024 Encounter Details Date Type Department Care Team (Late st Contact Info) Description 03/06/2024 Telephone [facility] Transplant Kidney [address] [facility] [address] Mail[address] [phone] [place] [address] Tisha Riley Referral - Kidney Txp Social [...] Recorded In the past 12 months has [employer], gas, oil, or water [employer] threatened to shut off services in your [...] How often do you attend chur or caodaism services? 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 Please verify insurance. Thank you! * Telephone Encounter - Chris Richard - 04/01/2024 1:08 PM CDT Outreached to patient at [phone], per patient, he is pending an answer from [facility] on whether they would cover his INR machine. Follow up in a month. * Telephone Encounter - Chris Richard - 03/25/2024 1:46 PM CDT Outreached to patient at [phone], left detailed voicemail requesting patient to fax his [facility] insurance card to Finance. Provided Finance's fax number. Invited patient to call should his insurancesituation is otherwise. * Telephone Encounter - Chris Richard - 03/06/2024 1:46 PM CDT Patient called back inquiring if [facility] Transplant accepts [facility] Complete Care PPO. Informed patient that [facility] works with [facility] Transplant. Suggested patient to check with his existing provider and the insurance plan to ensure seamless transition to the [facility] plan, and it is his responsibility to ensure thisis the case. Patient expressed understanding. Patient mentioned the [facility] plan will be effective 024 if he signs up for [facility]. Informed patient that Financ will call him on 03/25/2024 to obtain insurance ID number and insurance card. Patient understood. * Telephone Encounter - Chris Richard - 03/06/2024 11:49 AM CDT Outreached to patient at [phone], informed patient that [facility] does not include [facility] Transplant as a in-network provider. Offered the option to have patient contact [facility] for possible transplant network, or to work on switching insurance in his own will to a carrier that works with [facility]. Patient opted for changing his insurance. 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 Patient preliminary opting for [facility]. Informed patient that [facility] works with [facility] for transplant. Patient requested call back in [...] currently on dialysis Recipient questionnaire, ROXANA, and residential subcontractor assessment saved to chart documented in this encounter Plan of Treatment Scheduled Referrals Name Type Priority Associated Diagnoses Order Schedule Transplant Referral for Financial Clearance Outpatient Referral Routine ESRD (end stage renal disease) (CMS/HCC) ([facility]) Ordered: 03/06/2024 documented as of this encounter Visit Diagnoses Diagnosis ESRD (end stage renal disease) (CMS/HCC) (HCC)- Primary End stage renal disease documented in this encounter Care Teams Swimming Pool Maintenance Relationship Specialty Start Date End Date Aditya Castro MD [address] [facility] [place] [address] PCP - General 10/17/19 Alondra Lambert, RN [address] [address] Judicial Registrar 03/06/24 documented as of this encounter
--- OUTSIDE RECORDS SUMMARY | 2024-09-07 23:33 | XMS_ITS | Encounter Summary ---
Author Organization [facility] Healthcare Address [address] [place] [address] Care Team Providers Care Email Campaign Specialist Name Role Phone Aditya Castro MD Primary Care Provider [phone] Alondra Lambert RN Unavailable [phone] Encounter Details Date Type Department Care Team (Late st Contact Info) Description 04/25/2024 Telephone [facility] Transplant Kidney [address] [facility] [address] Mail[address] [phone] [place] [address] Chris Richard Social History Tobacco Use Types [...] doctor or pharmacy Never 12/01/2023 [facility] Utilities Answer Date Recorded In the [...] often do you attend chur ch or mormonism services? 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 Called back patient at [phone], requesting patient to fax his insurance card front and back toFinance. documented in this encounter Plan of Treatment Not on file documented as of this encounter Visit Diagnoses Not on filedocumented in this encounter Care Teams Email Campaign Specialist Relationship Specialty Start Date End Date Aditya Castro MD [address] [facility] [place] [address] PCP - General 10/17/19 Alondra Lambert, RN [address] [address] Instrumentation Fitter 03/06/24 documented as of this encounter
--- OUTSIDE RECORDS SUMMARY | 2024-09-07 23:33 | XMS_ITS | Encounter Summary ---
Author Organization [facility] Healthcare Address [address] [place] [address] Care Team Providers Care Bander Hand Name Role Phone Aditya Castro MD Primary Care Provider [phone] Alondra Lambert RN Unavailable [phone] Shannon Brock MD, Hamlet Gordon Unavailable [phone] Encounter Details Date Type Department Care Team (Late st Contact Info) Description 05/10/2024 Telephone [facility] Transplant Kidney [address] [facility] [address] [phone] [place], [place] [id number] Alondra Lambert, RN [address] [facility] [address] [place] [id number] Social History Tobacco Use Types Packs/Day Years [...] on file 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
--- OUTSIDE RECORDS SUMMARY | 2024-09-07 23:33 | XMS_ITS | Encounter Summary ---
Author Organization [facility] Healthcare Address [address] [place] [address] Care Team Providers Care Contact Lens Cutter Name Role Phone Aditya Castro MD Primary Care Provider [phone] Reason for Visit * Auth/Cert (Routine) Specialty Diagnoses / Procedures Referred By Aguilar t Referred To Contact Referral ID Status Reason Start Date Expiration Date Visits Re quested Visits Authorized [id number] 1 1 Encounter Details Date Type Department Care Team (Late st Contact Info) Description 11/13/2023 12:45 PM CDT Home Care Visit [place] [address] [address] [place] [address] Miriam Syed RN SN HOME VISIT Social [...] materials from doctor or pharmacy Never 11/05/2023 [facility] Utilities Answer Date Recorded In the past 12 months has th e [employer], gas, oil, or water company threatened to [...] file 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
--- OUTSIDE RECORDS SUMMARY | 2024-09-07 23:33 | XMS_ITS | Encounter Summary ---
Author Organization [facility] Healthcare Address [address] [place] [address] Care Team Providers Care Line Construction Engineer Name Role Phone Aditya Castro MD Primary Care Provider [phone] Reason for Visit * Auth/Cert (Routine) Specialty Diagnoses / Procedures Referred By Aguilar t Referred To Contact Referral ID Status Reason Start Date Expiration Date Visits Re quested Visits Authorized [id number] 1 1 Encounter Details Date Type Department Care Team (Late st Contact Info) Description 11/27/2023 10:30 AM CDT Home Care Visit [facility] Health [place] [address] [address] [place] [address] Miriam Syed RN SN HOME VISIT Social [...] materials from doctor or pharmacy Never 11/05/2023 [facility] Utilities Answer Date Recorded In the past 12 months has th e [employer], gas, oil, or water company threatened to [...] file 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
--- OUTSIDE RECORDS SUMMARY | 2024-09-07 23:33 | XMS_ITS | Encounter Summary ---
Author Organization [facility] Healthcare Address [address] [place] [address] Care Team Providers Care Labor Relations Officer Name Role Phone Aditya Castro MD Primary Care Provider [phone] Encounter Details Date Type Department Care Team (Late st Contact Info) Description 11/05/2023 Plan of Care Documentation [facility] Health [place] [address] [address] [place] [id number] Social History Tobacco Use Types Packs/Day Years [...] In the past 12 months has e [employer], gas, oil, or water company threatened to [...] on file Legal Sex Male 3:42 AM DUST MIXER Gender Identity Not on file Sexual Orientation Not on file documented as of this encounter Miscellaneous Notes * Home Health Plan of Care Certification Statement - Yamilet Aj OT - 11/13/2023 1:07 PM CDT I certify that the above stated patient is homebound and has a need for intermittent jail, physical therapy and/or speech or occupational therapy services for their current diagnosis(es) as outlined in the initial plan of care. The patient is under my care, and I have authorized serviceson this plan of care and will periodically review the plan. The patient had a [id number] encounter with Lorne Mcnulty MD on 10/20/2023 and the encounter was related to the primary reason for home health care. documented in this encounter Plan of Treatment Not on file documented as of this encounter Visit Diagnoses Not on filedocumented in this encounter Care Teams Labor Relations Officer Relationship Specialty Start Date End Date Aditya Castro MD [address] [facility] [place] [address] PCP - General 10/17/19 documented as of this encounter
--- OUTSIDE RECORDS SUMMARY | 2024-09-07 23:35 | XMS_ITS | Encounter Summary ---
Author Organization [facility] Healthcare Address [address] [place] [address] Care Team Providers Care Substation Superintendent Name Role Phone Aditya Castro MD Primary Care Provider [phone] Reason for Visit * Auth/Cert Specialty Diagnoses / Procedures Referred By Aguilar t Referred To Contact Diagnoses CAD in [place] artery Needs CABG (12 or 1300) Procedures N Referral ID Status Reason Start Date Expiration Date Visits Re quested Visits Authorized [id number] 1 1 Encounter Details Date Type Department Care Team (Late st Contact Info) Description 10/17/2023 8:03 AM TRAIN CLERK Anesthesia Event [facility] Operating Room [address] [place] [id number] Ayden Alan MD [address] [place] [address] Ravi Thacker CRNA [address] [place] [address] Anesthesia Record Procedure Summary Procedure Name Responsible [...] 1006 CPB ON Arterial 24 fr Venous [id number] fr Cdpg kbc 1006 Cooling Start 1006 [...] Date: 10/06/23; Existing LDA Placed by: [facility]; Catheter Size: 18 G; Orientation: Anterior, Distal, [...] Dee Ibarra RN 10/20/23 1006 by Renetta eKys RN RETIRED Surgical Site 10/17/23; 0848; No ; Right, Proximal; Knee; vein harvest site; 07/23/24 (Retired LDA, Removed/Completed by [facility] with LDA Utility); 1213 (Retired LDA, Removed/Completed by [employer] with LDA Utility) 10/17/23 0848 by Dee [...] Sternum; sternotomy; 07/23/24 (Retired LDA, Removed/Completed by [facility] with LDA Utility); 1213 (Retired LDA, Removed/Completed by [facility] with LDA Utility) 10/17/23 0914 by Dee Ibarra RN 07/23/24 1213 by Discharge Provider, Automatic RETIRED Surgical Site 10/17/23; 0930; No ; Anterior, Proximal, Right; Herman/tibia; 07/23/24 (Retired LDA, Removed/Completed by [facility] with LDA Utility); 1213 (Retired LDA, Removed/Completed by [facility] with LDA Utility) 10/17/23 0930 by Dee Ibarra RN 07/23/24 1213 by Discharge Provider, Automatic Closed/Suction/Open Drain 10/17/23; 0930; No; Right, Proximal; Thigh; Bulb; 19 Fr.; 1 10/17/23 0930 by Dee Ibarra RN 10/19/23 1515 by Magalie Riley RN RETIRED Surgical Site 10/17/23; 0931; No ; Right, Upper, Anterior, Proximal; Thigh; vein harvest site; 07/23/24 (Retired LDA, Removed/Completed by [facility] with LDA Utility); 1213 (Retired LDA, Removed/Completed by [facility] with LDA Utility) 10/17/23 0931 by Dee [...] Location: Pleural; Size: 28 Fr; Drainage System: Leggett/nonsuction water seal drainage, Suction; Sutures Placed: 1; [...] drink = 0.6 oz pur e alcohol) [facility] Utilities Answer Date Recorded In the past 12 months has [employer], gas, oil, or water [employer] threatened to shut off services in your [...] on file Legal Sex Male 3:42 AM TRAIN CLERK Gender Identity Not on file Sexual Orientation Not on file documented as of this encounter OR Notes * Anesthesia Postprocedure Evaluation - Ayden Alan MD - 10/17/2023 1:35 PM CST Patient: Juvenal Daigle Jr. Procedure Summary Date: 10/17/23 Room / Location: [facility] OPERATING ROOM / [facility] OPERATING ROOM Anesthesia Start: 802 Anesthesia Stop: 1334 Procedures: CORONARY ARTERY BYPASS GRAFT, AORTIC VALVE REPLACEMENT (Chest) REPLACEMENT AORTIC VALVE (Chest) Diagnosis: Aortic valve stenosis, etiology of cardiac valve disease unspecified Coronary arteriosclerosis in [place] artery (Aortic valve stenosis, etiology of cardiac valve disease unspecified [I35.0]) (Coronary arteriosclerosis in [place] artery [I25.10]) Surgeons: Lorne Mcnulty MD Responsible [...] unable to evaluate No notable events documented. N CLERK * Anesthesia Procedure Notes - Ayden Alan MD - 10/17/2023 9:31 AM TRAIN CLERK Associated Order(s): LEIA LEIA Date/time: 10/17/2023 9:31 AM Staff: Supervising anesthesiologist: Ayden Alan MD Performed by: Anesthesiologist: Ayden Alan MD [address] PHOTOGRAPHER: Ravi Thacker CRNA Preprocedure checklist: patient identified, [...] code: LEIA placement and diagnostic exam, non-congenital (57880) ICD code(s) for medical necessity: I35.2 - [...] inferior: hypokinetic 16- Apical septal: hypokinetic 17- [place]: hypokinetic Valves: Aortic Valve: Annulus: calcified Leaflet [...] valve: Annulus: normal Stenosis: none Regurgitation: trace (Runge -Daniel is transvalvular) Aorta: Ascending aorta: Size: [...] the written comments contained within the report. N CLERK * Anesthesia Procedure Notes - Ayden Alan MD - 10/17/2023 8:56 AM TRAIN CLERK Associated Order(s): Central Venous Line Central Venous Line Patient location: OR Indication: central venous access and CVP monitoring Staff: Supervising provider: Ayden Alan MD Placed by: STREET PHOTOGRAPHER: Ravi Thacker CRNA Procedure prep: Patient position: [...] patient tolerated procedure well with no complications N CLERK * Anesthesia Procedure Notes - Ayden Alan MD - 10/17/2023 8:55 AM TRAIN CLERK Associated Order(s): Central Venous Line Central Venous Line Patient location: OR Indication: central venous access and CVP monitoring Staff: Supervising provider: Ayden Alan MD Placed by: STREET PHOTOGRAPHER: Ravi Thacker CRNA Procedure prep: Patient position: [...] patient tolerated procedure well with no complications N CLERK * Anesthesia Procedure Notes - Ayden Alan MD - 10/17/2023 8:54 AM TRAIN CLERK Associated Order(s): Arterial Line Arterial Line Patient location: OR Indication: continuous blood pressure monitoring and blood sampling needed Staff: Supervising provider: Ayden Alan MD Placed by: STREET PHOTOGRAPHER: Ravi Thacker CRNA Procedure prep: Prep solution: other Prep: provider hat/mask Arterial line: Catheter size: 20 gauge Catheter length: 1 and 3/4 inch Catheter type: wire-guided catheter Seldinger technique: yes Laterality: right Site: radial artery Line secured: tape and Tegaderm Results: good waveform and good blood return Number of attempts: 1 Assessment: Events: patient tolerated procedure well with no complications N CLERK * Anesthesia Procedure Notes - Ayden Alan MD - 10/17/2023 8:53 AM TRAIN CLERK Associated Order(s): Airway Airway Patient location: OR [...] with: silk tape Number of attempts: 1no N CLERK * Anesthesia Preprocedure Evaluation - Ayden Alan MD - 10/17/2023 6:38 AM CST Images from the original note were not included. Anesthesia Evaluation Juvenal Daigle Jr. is a 53 y.o. male CORONARY ARTERY BYPASS GRAFT (8:00 start per JS) (Chest) REPLACEMENT AORTIC VALVE (Chest) Pre-Op Diagnosis Codes: * Aortic valve stenosis, etiology of cardiac valve disease unspecified [I35.0] * Coronary arteriosclerosis in [place] artery [I25.10] Patient Active Problem List Diagnosis Date Noted CAD in [place] artery 10/13/2023 Anemia 06/22/2022 ESRD (end stage renal disease) ([facility] ([facility]) 06/22/2022 Acute on chronic HFrEF (heart failure with reduced ejection fraction) ([facility]) 06/22/2022 Atrial fibrillation ([facility] ([facility]) 06/22/2022 NSTEMI (non-ST elevated myocardial infarction) ([facility] ([facility]) 06/22/2022 Cardiogenic shock ([facility]) 06/22/2022 Acute hypoxemic respiratory failure ([facility]) 06/09/2022 Hypotension 06/03/2022 Abnormal cardiovascular stress test 12/29/2020 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[place] artery of [place] heart with stable angina pectoris ([facility] ([facility]) 05/23/2017 History of coronary artery stent placement 05/23/2017 Macular ischemia 03/17/2017 Combined forms of age-related cataract 03/17/2017 Proliferative diabetic retinopathy associated with type 2 diabetes mellitus ([facility]) 03/17/2017 Type 2 diabetes mellitus treated with insulin ([facility] ([facility]) 03/25/2015 Chronic kidney disease, stage III (moderate) ([facility]) 03/25/2015 Benign essential hypertension 03/25/2015 Hyperlipidemia 03/25/2015 Pain of finger 11/24/2014 Hypersomnia 11/22/2013 Chronic kidney disease 11/22/2013 Hypertension 01/18/2013 Type 1 diabetes mellitus ([facility]) 01/18/2013 Past Medical History: Diagnosis Date CAD (coronary artery disease) Chest pain Diabetes mellitus ([facility]) Diabetes mellitus type I ([facility]) Dialysis patient ([facility] ([facility]) ESRD on dialysis ([facility]) ([facility]) GERD (gastroesophageal reflux disease) Hyperlipidemia Hypertension Sleep [...] PUMP: Continue Omnipod 5 insulin pump with [employer] G6 CGM at home settings: TIME BASAL [...] and agree to proceed. All questions answered. N CLERK N CLERK N CLERK documented in this encounter Miscellaneous Notes * Addendum Note - Ayden Alan MD - 10/18/2023 10:55 AM CST Addendum created 10/18/23 1055 by Ayden Alan MD Intraprocedure Meds edited (Anesthesia) N CLERK * Post-Perfusion - Chang Stout, CCP - [...] Chang, CCP PLATELETS - CROSSMATCHED [id number] (mL) Date/Time Rate/Volume Action Admin User Audit 10/17/23 1224 New Bag Ayden Alan MD 1225 200 mL Stopped Ayden Alan MD FFP - CROSSMATCHED [id number] 24 [id number] (mL) Date/Time Rate/Volume Action Admin User Audit 10/17/23 1203 New Bag Ayden Alan MD 1204 277 mL Stopped Ayden Alan MD [id number] 24 [id number] (mL) Date/Time Rate/Volume Action Admin User Audit 10/17/23 1203 New Bag Ayden Alan MD 1204 242 mL Stopped Ayden Alan MD CRYOPRECIP - CROSSMATCHED W2011 23 [id number] (mL) Date/Time Rate/Volume Action Admin User Audit 10/17/23 1204 New Bag Ayden Alan MD 1205 85 mL Stopped Ayden Alan MD [id number] 24 [id number] (mL) Date/Time Rate/Volume Action Admin User Audit 10/17/23 1205 New Bag Ayden Alan MD 1206 88 mL Stopped Ayden Alan MD PRBC - CROSSMATCHED [id number] 24 [id number] (mL) Date/Time Rate/Volume Action Admin User Audit [...] 1006 CPB ON Arterial 24 fr Venous [id number] fr Cdpg kbc 1006 Cooling Start 1006 [...] Lorne Mcnulty MD at 10/17/2023 5:16 PM TRAIN CLERK N CLERK N CLERK documented in this encounter Plan of Treatment Not on file documented as of this encounter Procedures Procedure Name Priority Date/Time Associated Diagnosis Comments VT AN PROCEDURE PLACEHOLDER Routine 10/17/2023 9:31 AM TRAIN CLERK VT AN PROCEDURE PLACEHOLDER Routine 10/17/2023 8:56 AM TRAIN CLERK VT AN CENTRAL LINE QUADRUPLE LUMEN Routine 10/17/2023 8:56 AM TRAIN CLERK VT AN PROCEDURE PLACEHOLDER Routine 10/17/2023 8:55 AM TRAIN CLERK PULMONARY ARTERY CATH Routine 10/17/2023 8:55 AM TRAIN CLERK BW AN SHEATH INTRODUCER PERFORMABLE Routine 10/17/2023 8:55 AM TRAIN CLERK VT AN PROCEDURE PLACEHOLDER Routine 10/17/2023 8:54 AM TRAIN CLERK VT AN PROCEDURE PLACEHOLDER Routine 10/17/2023 8:53 AM TRAIN CLERK VT AN ELECTIVE ENDOTRACHEAL AIRWAY Routine 10/17/2023 8:53 AM TRAIN CLERK documented in this encounter Results * VT AN PROCEDURE PLACEHOLDER (10/17/2023 9:31 AM TRAIN CLERK) Anatomical Region Laterality Modality Other Narrative 10/17/2023 9:31 AM TRAIN CLERK Ayden Alan MD ? 10/17/2023 ??9:39 AM LEIA Date/time: 10/17/2023 9:31 AM Staff: Supervising anesthesiologist: Ayden Alan MD Performed by: Anesthesiologist: Ayden Alan MD [address] PHOTOGRAPHER: Ravi Thacker CRNA Preprocedure checklist: patient identified, [...] code: LEIA placement and diagnostic exam, non-congenital (51201) ICD code(s) for medical necessity: I35.2 - [...] inferior: hypokinetic 16- Apical septal: hypokinetic 17- [place]: hypokinetic Valves: Aortic Valve: Annulus: calcified Leaflet [...] valve: Annulus: normal Stenosis: none Regurgitation: trace (Runge -Daniel is transvalvular) Aorta: Ascending aorta: Size: [...] MD ANESTHESIA ORDERABLES Final Re sult * VT AN CENTRAL LINE QUADRUPLE LUMEN, VT AN PROCEDURE PLACEHOLDER (10/17/2023 8:56 AM TRAIN CLERK) Narrative Ayden Alan MD - 10/17/2023 8:56 AM TRAIN CLERK Ayden Alan MD ? 10/17/2023 ??8:57 AM Central Venous Line Patient location: OR Indication: central venous access and CVP monitoring Staff: Supervising provider: Ayden Alan MD Placed by: STREET PHOTOGRAPHER: Ravi Thacker CRNA Procedure prep: Patient position: [...] AN SHEATH INTRODUCER PERFORMABLE, PULMONARY ARTERY CATH, VT AN PROCEDURE PLACEHOLDER (48:55 AM TRAIN CLERK) Narrative Ayden Alan MD - 10/17/2023 8:55 AM TRAIN CLERK Ayden Alan MD ? 10/17/2023 ??8:56 AM Central Venous Line Patient location: OR Indication: central venous access and CVP monitoring Staff: Supervising provider: Ayden Alan MD Placed by: STREET PHOTOGRAPHER: Ravi Thacker CRNA Procedure prep: Patient position: [...] MD ANESTHESIA ORDERABLES Final Re sult * VT AN PROCEDURE PLACEHOLDER (10/17/2023 8:54 AM TRAIN CLERK) Ayden Barahona MD - 10/17/2023 8:54 AM TRAIN CLERK Ayden Alan MD ? 10/17/2023 ??8:55 AM Arterial Line Patient location: OR Indication: continuous blood pressure monitoring and blood sampling needed Staff: Supervising provider: Ayden Alan MD Placed by: STREET PHOTOGRAPHER: Ravi Thacker CRNA Procedure prep: Prep solution: [...] MD ANESTHESIA ORDERABLES Final Re sult * VT AN ELECTIVE ENDOTRACHEAL AIRWAY, VT AN PROCEDURE PLACEHOLDER (10/17/2023 8:53 AM TRAIN CLERK) Ayden Barahona MD - 10/17/2023 8:53 AM TRAIN CLERK Ayden Alan MD ? 10/17/2023 ??8:54 AM [...] Anesthesia Intra-op New Bag 10/17/2023 10:45 AM TRAIN CLERK calcium chloride IV syringe intravenous, As needed, Starting on Mon10/17/23 at 1203, Anesthesia Intra-op Given 10/17/2023 12:03 PM TRAIN CLERK 1 g ceFAZolin (ANCEF) injection intravenous, Administer over 3 Minutes, As needed, Starting on Mon10/17/23 at 0834, Anesthesia Intra-op Given 10/17/2023 1:00 PM TRAIN CLERK 3,000 mg Given 10/17/2023 8:34 AM TRAIN CLERK 3,000 mg citrate dextrose solution (ACD-A) infusion intravenous, As needed, Starting on Mon10/17/23 at 0847, Anesthesia Intra-op Given 10/17/2023 8:47 AM TRAIN CLERK 1,000 mL DOBUTamine in dextrose 5% (DOBUTREX) 1,000 mg/250 mL (4,000 mcg/mL) infusion (premix) intravenous, Continuous PRN, Starting on Mon10/17/23 at 1143, Anesthesia Intra-op New Bag 10/17/2023 11:43 AM TRAIN CLERK 5 mcg/kg/min 9.465 mL/hr fentaNYL (SUBLIMAZE) preservative free injection intravenous, As needed, Starting on Mon10/17/23 at 0803, Anesthesia Intra-op Given 10/17/2023 10:11 AM TRAIN CLERK 250 mcg Given 10/17/2023 9:48 AM TRAIN CLERK 250 mcg Given 10/17/2023 9:20 AM TRAIN CLERK 250 mcg heparin 1,000 unit/mL injection intravenous, As needed, Starting on Mon10/17/23 at 1019, Anesthesia Intra-op Bolus 10/17/2023 11:00 AM TRAIN CLERK 10,000 Units Bolus 10/17/2023 10:31 AM TRAIN CLERK 10,000 Units New Bag 10/17/2023 10:19 AM TRAIN CLERK 10,000 Units heparin 1,000 unit/mL injection intravenous, As needed, Starting on Mon10/17/23 at 0940, Anesthesia Intra-op Bolus 10/17/2023 9:49 AM TRAIN CLERK 5,000 Units New Bag 10/17/2023 9:40 AM TRAIN CLERK 45,000 Units insulin regular (HumuLIN R, NovoLIN R) 100 unit/mL injection intravenous, As needed, Starting on Mon10/17/23 at 0940, Anesthesia Intra-op Given 10/17/2023 10:40 AM TRAIN CLERK 5 Unit s Given 10/17/2023 10:12 AM TRAIN CLERK 5 Units insulin regular in 0.9% sodium chloride (MYXREDLIN) 100 unit/100 mL (1 unit/mL) infusion (premix) intravenous, Continuous PRN, Starting on Mon10/17/23 at 0843, Anesthesia Intra-op New Bag 10/17/2023 8:43 AM TRAIN CLERK 2 Units/hr 2 mL/hr Lactated Ringer's (LR) 1,000 mL with albumin 100 mL, heparin 10 mL, mannitol 25 g solution intravenous, Continuous PRN, Starting on Mon10/17/23 at 1006, Anesthesia Intra-op New Bag 10/17/2023 10:06 AM TRAIN CLERK 1,000 mL mannitol 26 mL, lidocaine (cardiac) (XYLOCAINE) 13 mL, magnesium sulfate 8 mL solution intravenous, Continuous PRN, Starting on Mon10/17/23 at 1203, Anesthesia Intra-op New Bag 10/17/2023 12:03 PM TRAIN CLERK 31 mL midazolam (VERSED) 1 mg/mL preservative free injection intravenous, Administer over 2 Minutes, As needed, Starting on Mon10/17/23 at 0803, Anesthesia Intra-op Given 10/17/2023 8:47 AM TRAIN CLERK 3 mg Given 10/17/2023 8:03 AM TRAIN CLERK 2 mg norepinephrine in dextrose 5% (LEVOPHED) 8,000 mcg/250 mL (32 mcg/mL) infusion (premix) intravenous, Continuous PRN, Starting on Mon10/17/23 at 0825, Anesthesia Intra-op Rate/Dose Change 10/17/2023 11:43 AM TRAIN CLERK 0.05 mcg/kg/min 11.831 mL/hr New Bag 10/17/2023 8:25 AM TRAIN CLERK 0.03 mcg/kg/min 7.099 mL /hr phenylephrine (JOAQUÍN-SYNEPHRINE) injection intravenous, As needed, Starting on Mon10/17/23 at 1148, Anesthesia Intra-op Given 10/17/2023 11:48 AM TRAIN CLERK 300 mc g Given 10/17/2023 10:39 AM TRAIN CLERK 300 mcg Given 10/17/2023 10:32 AM TRAIN CLERK 300 mcg potassium chloride 2 mEq/mL arrest solution intracardiac, As needed, Starting on Mon10/17/23 at 1146, Anesthesia Intra-op Given 10/17/2023 11:46 AM TRAIN CLERK 46 mEq propofoL (DIPRIVAN) 10 mg/mL IV intravenous, As needed, Starting on Mon10/17/23 at 0804, Anesthesia Intra-op New Bag 10/17/2023 8:04 AM TRAIN CLERK 60 mg propofoL (DIPRIVAN) 10 mg/mL IV intravenous, Continuous PRN, Starting on Mon10/17/23 at 0840, Anesthesia Intra-op New Bag 10/17/2023 8:40 AM TRAIN CLERK 25 mcg/kg/min 18.93 mL/hr protamine injection intravenous, As needed, Starting on Mon10/17/23 at 1209, Anesthesia Intra-op, Indications: Heparin ToxicityIndications:Heparin Toxicity Given 10/17/2023 12:09 PM TRAIN CLERK 500 mg rocuronium (ZEMURON) injection intravenous, As needed, Starting on Mon10/17/23 at 0804, Anesthesia Intra-op Given 10/17/2023 11:50 AM TRAIN CLERK 30 mg Given 10/17/2023 9:46 AM TRAIN CLERK 50 mg Given 10/17/2023 8:04 AM TRAIN CLERK 100 mg sodium bicarbonate 8.4 % (1 mEq/mL) injection intravenous, Administer over 5 Minutes, As needed, Starting on Mon10/17/23 at 1019, Anesthesia Intra-op Given 10/17/2023 11:24 AM TRAIN CLERK 25 mEq Given 10/17/2023 10:34 AM TRAIN CLERK 25 mEq Given 10/17/2023 10:30 AM TRAIN CLERK 25 mEq Transfuse cryoprecipitate (pooled units) Timed New Bag 10/17/2023 12:04 PM TRAIN CLERK Transfuse cryoprecipitate (pooled units) Timed New Bag 10/17/2023 12:05 PM TRAIN CLERK Transfuse plasma Timed New Bag 10/17/2023 12:03 PM TRAIN CLERK Transfuse plasma Timed New Bag 10/17/2023 12:03 PM TRAIN CLERK Transfuse platelets Timed New Bag 10/17/2023 12:24 PM TRAIN CLERK Transfuse RBC Timed New Bag 10/17/2023 12:09 PM TRAIN CLERK documented in this encounter Care Teams Substation Superintendent Relationship Specialty Start Date End Date Aditya Castro MD [address] [place] [address] PCP - General 10/17/19 documented as of this encounter
--- OUTSIDE RECORDS SUMMARY | 2024-09-07 23:35 | XMS_ITS | Encounter Summary ---
Author Organization [facility] Healthcare Address [address] [place] [address] Care Team Providers Care Elevator Pilot Name Role Phone Aditya Correa MD Primary Care Provider Reason for Referral * Consultation (Routine) - Pending Review Specialty Diagnoses / Procedures Referred By Aguilar t Referred To Contact Cardiac Rehabilitation Diagnoses S/P CABG x 3 NSTEMI (non-ST elevated myocardial infarction) (CMS/HCC) (HCC) S/P AVR Jaqueline Valero MD Phone: tel: fax: [place] [address] [place] [phone] Phone: tel: Referral ID Status Reason Start Date Expiration Date Visits Requested Visits Authorized [id number] Pending Review Specialty Services Required 10/24/2023 11/22/2024 1 1 Question Answer Please select the performing region: External Order [171] To loc/pos [facility] Inpatient POS [[id number]] Select a phase: Phase 2 # of visits: [address] Valero is patient's Cardiothoracic Surgeon and will not be managing patient during Cardiac Rehab. Please contact patient's established Irrigator Gravity Flow, Dr. Hamlet Ortega, for additional information. 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 (HCC) Aortic stenosis, severe Jaqueline Valero MD Phone: tel: fax: [facility] Home Care Services [address] [address] Referral ID Status Reason Start Date Expiration Date Visits Requested Visits Authorized [id number] Pending Review Specialty Services Required 10/20/2023 11/18/2024 1 1 Question [facility] Primary disciplines requested: Alf Home Health Services Disease and Medication Management, [...] and safety, Pain and impaired mobility post-op CTOR OF INSTITUTIONAL SALES Reason for Visit * Auth/Cert Specialty Diagnoses / Procedures Referred By Contac t Referred To Contact Diagnoses CAD in elim ira artery Needs CABG (12 or 1300) Procedures N Referral ID Status Reason Start Date Expiration Date Visits Re quested Visits Authorized [id number] 1 1 Encounter Details Date Type Department Care Team (Latest Contact Info) Description 10/13/2023 11:18 PM DIRECTOR OF INSTITUTIONAL SALES - 11/03/2023 7:30 PM CDT Hospital Encounter [facility] [address] [place] [address] Julio Lopez [address] [facility] [place] [address] Frank Cody MD [address] [facility] [place] [address] Jovani Kat DO [address] [place] [address] Jaqueline Valero MD [address] [facility] [address] [place], [place] [id number] 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 ([facility]/HCC) ([facility]) (Primary Dx); CAD in elim ira artery; Aortic stenosis, severe; S/P CABG x 3; NSTEMI (non-ST elevated myocardial infarction) (CMS/[facility]) ([facility]); S/P AVR Discharge Disposition: Discharge to home, home health skilled care Social History Tobacco Use Types Packs/Day Years Used Date Smoking Tobacco: Never Smokeless Tobacco: Former Alcohol Use Standard Drinks/Week Comments No 0 (1 standard drink = 0.6 oz pur e alcohol) [facility] Utilities Answer Date Recorded [...] Legal Sex Male 3:42 AM DIRECTOR OF INSTITUTIONAL SALES Gender Identity Not on file Sexual Orientation [...] (5' 10 ) 10/17/2023 12: 52 PM DIRECTOR OF INSTITUTIONAL SALES Body Mass Index 39.48 10/17/2023 12:52 PM DIRECTOR OF INSTITUTIONAL SALES documented in this encounter Discharge Summaries * [...] 53-year-old male who has been transferred to [facility] for consideration of coronary artery bypass grafting and aortic valve replacement. His past medical history includes severe CAD with previous PCI, paroxysmal atrial fibrillation, type 1 diabetes mellitus, ESRD on peritoneal dialysis, hypertension, hyperlipidemia, and sleep apnea. He presented to [facility] in [place], [place] on 10/09/23 complaining of fatigue, malaise, [...] THIS IS FOR THE INSULIN PUMP: Continue OmnipSnaptrip 5 insulin pump with Spectral Edge G6 CGM at home settings: TIME BASAL RATE TOTAL BASAL DAILY DOSE: 65.85 0330 1.7 units/hour 0800 0.8 units/hour 2000 5.8 units/hour Commonly known as: HumaLOG, ADMELOG levothyroxine 25 mcg tablet Take 1 tablet (25 mcg total) by mouth speech therapist early intervention before breakfast Commonly known as: SYNTHROID Start [...] REDNESS OR DRAINAGE OF INCISIONS OR FEVERS [phone] Diet Instructions Adult Discharge Diet Diet Type: Restrict salt intake to less than 4000 mg per day Low fat intake Diabetic renal diet. Heart healthy diet. Limit foods high in Vitamin K while taking Coumadin. High protein intake. Other Instructions Ambulatory referral to Home Health Service Line: Home Health Primary disciplines requested: Alf Home Health Services: Disease and Medication Management [...] AM Jaqueline Valero MD [facility] [id number] PSA Contact Information for Follow-ups [facility] Home Care Services Specialty: Home Health and Hospice [address] [facility] [id number] Next Steps: Follow up Questions: Service Line: Home Health Primary disciplines requested: Alf Home Health Services: Disease and Medication Management [...] Family Medicine Relationship: PCP - General [address] [facility] [id number] Next Steps: Follow up Comments: Follow up with established provider: 4 weeks Questions: To provider: ADITYA CORREA [facility] [address] [place] [phone] Next Steps: Follow up Comments: Dr. Valero is patient's Cardiothoracic Surgeon and will not be managing patient during Cardiac Rehab. Please contact patient's established Irrigator Gravity Flow, Dr. Hamlet Ortega, for additional information. Questions: Please select the performing region: External Order To loc/pos: [facility] Inpatient POS Select a phase: Phase 2 # of visits: 1 Referral Status: External - Ready to Schedule Cosigned by Jaqueline Valero MD at 11/04/2023 2:05 PM CDT documented in this encounter Discharge Instructions * Discharge Instr - Diet* Carly Spencer RD - 10/20/2023 3:29 PM DIRECTOR OF INSTITUTIONAL SALES Diabetic renal diet. Heart healthy diet. Limit foods high in Vitamin K while taking Coumadin. High protein intake. CTOR OF INSTITUTIONAL SALES CTOR OF INSTITUTIONAL SALES * Attachments The following attachments cannot be sent through Care Everywhere. * CABG (Coronary Artery Bypass Graft) (Discharge Care) (Maltese) * Transcatheter Aortic Valve Replacement (Discharge Care) (Maltese) * Sternal Precautions (Grain Mill Worker) (Maltese) * Warfarin (By mouth) (Maltese) documented in this encounter Medications at Time [...] PUMP: Continue Omnipod 5 insulin pump with Globa.licom G6 CGM at home settings: TIME BASAL RATE TOTAL BASAL DAILY DOSE: 65.85 0330 1.7 units/hour 0800 0.8 units/hour 2000 5.8 units/hour 06/29/2022 ketoconazole (NIZORAL) 2 % shampoo APPLY EXTERNALLY 2 TO 3 TIMES EVERY WEEK NEEDED 04/23/2019 levothyroxine (SYNTHROID) 25 mcg tabletIndications:hy pothyroidism Take 1 tablet (25 mcg total) by mouth speech therapist early intervention before breakfast 30 tablet 1 11/04/2023 Linzess [...] (20 mg total) by mouth daily peg 417-myfuxgkhobxu-ogt cerin (ARTIFICAL TEARS) 1-0.2-0.2 % ophthalmic solution [...] total) by mouth speech therapist early intervention before breakfast 30 tablet 1 11/04/2023 HYDROcodone-acetamin [...] 53 y.o. male. Admit Dx: CAD in elim ira artery [I25.10]. Admitted on 10/13/2023. Patient's intake [...] Review: Scheduled Meds: al & mag hydroxide vpjfgabpqfe-ubewpqvkhiuysvd-qllhlqtkh-nystatin, 20 mL, swish & swallow, Q6H amiodarone, [...] heparin, 0-33 Units/kg/hr, Last Rate: Stopped (11/03/23 2793) INSULIN SUBCUTANEOUS PUMP insulin lispro, 0-25 Units [...] of Weight Used for Estimated Protein : Moran Protein Needs Based on g/k.4 Total Protein Estimated Needs (gm): 105.42 Kcal/kg Type of Weight Used for Estimated Kcals: Moran Kcal/k Total Kcal/kg Estimated Needs : 2259 [...] consistent carbohydrate and renal diet. Plan: Added child care supervisor check to pt's diet to help [...] ESRD on peritoneal dialysis initially presented to [facility] in [facility] on October 09 for symptoms [...] consultation which lead to a [facility]. Results were notable for severe CAD [...] regimen of PD Follow-up with his primary wheel installer Fernandez Carranza MD [facility]: MD Chula Domínguez PA Graeme Mindel, MD Justin Krafft, PA Derek Larson, MD FASN Rose Mattli, NP Rohan Devanpalli, MD Candace Shirley, NP [address] [place], [place] [id number] [phone] - Office [phone] - Fax * Nusrat Us [facility] - 11/03/2023 11:05 AM CDT Warfarin monitoring [...] 7.6 monitor for now Joselin Strickland MD [facility] SUBJECTIVE: Mr. Garvin is doing well overall. [...] Dose Route Frequency al & mag hydroxide vibhngqexan-qtnwimondzpcgsi-xqcngefws-nystatin (MAGIC MOUTHWASH) oral suspension 1-1-1-1 20 mL [...] sternotomy healing well ASSESSMENT/PLAN: CAD - prior MT with multiple PCI - C showed multivessel [...] -venous doppler shows no DVT SHAMIKA Donald [facility] 11/03/2023 10:59 AM * [...] yesterday Levothyroxine 25 mcg started per Endocrine Tyler prn for pain control CPAP nightly Stress ulcer prophylaxis: Protonix DVT prophylaxis: coumadin dosing PT/OT Plan reviewed with LESLY Vallecillo 11/02/2023 * Nida Starr, GALLERY INTERN - 11/02/2023 2:54 PM CDT Physical Therapy [...] Comments Incentive spirometer x 10 reps fom [id number] Transfer 1 Transfer From 1 Sit;Chair with [...] End Date End Date PT LT - [facility] 1 10/21/23 11/04/23 -- Goal Details: Patient will perform supine<>sit Independent. Goal Start Date Expected End Date End Date PT [facility] - [facility] 2 10/21/23 11/04/23 -- Goal Details: Patient will perform bed<>chair transfer Modified Independent with ww. Goal Start Date Expected End Date End Date PT LT - [facility] 3 10/21/23 11/04/23 -- Goal Details: Patient will ambulate 350 feet Modified Independent with wheeled walker. Goal Start Date Expected End Date End Date PT [facility] - [facility] 4 10/21/23 11/04/23 -- Goal Details: Patient [...] ESRD on peritoneal dialysis initially presented to [facility] in [facility] on October 09 for symptoms [...] free T4, synthroid started Fernandez Carranza MD [facility]: MD Chula Domínguez, MD Renny Flood, MD STANISLAV Camacho, MD Shanda Pederson, ROBERTO [address] [place], [place] [address] [phone] - Office [phone] - Fax * Pradeep Reeves NP - [...] Dose Route Frequency al & mag hydroxide adbnlsjdcsk-dzimfcjdwryhbey-wnmdemwtd-nystatin (MAGIC MOUTHWASH) oral suspension 1-1-1-1 20 mL [...] mL 0.5-20 mL intra-catheter Q8H [facility] sodium chloride tablet 1 g 1 g [...] sternotomy healing well ASSESSMENT/PLAN: CAD - prior MT with multiple PCI - [facility] showed multivessel disease - LVEF dropped [...] -venous doppler shows no DVT SHAMIKA Donald [facility] 11/02/2023 12:53 PM * [...] and Vancomycin for left lower extremity cellulitis Tyler prn for pain control CPAP nightly Stress [...] ESRD on peritoneal dialysis initially presented to [facility] in [facility] on October 09 for symptoms [...] consultation which lead to a [facility]. Results were notable for severe CAD [...] free T4, synthroid started Fernandez Carranza MD [facility]: MD Chula Domínguez, MD Renny Flood PA Derek Larson, MD FASN Rose Mattli, MD Shanda Pederson, ROBERTO [address] [place] [address] [phone] - Office [phone] - Fax * Sophia Peoples COTA - [...] permanent denture broke after biting into an slovenian muffin. Incisional pain is well controlled. OBJECTIVE: [...] Dose Route Frequency al & mag hydroxide putmjcpdwdf-jgnoagxmddmwbef-kivnuhxev-nystatin (MAGIC MOUTHWASH) oral suspension 1-1-1-1 20 mL [...] mL 0.5-20 mL intra-catheter Q8H [facility] sodium chloride tablet 1 g 1 g [...] sternotomy healing well ASSESSMENT/PLAN: CAD - prior MT with multiple PCI - [facility] showed multivessel disease - LVEF dropped [...] -venous doppler shows no DVT SHAMIKA Donald [facility] 11/01/2023 10:22 AM Agree with above note Feels better No chest pain BP stable S/P CABG, AVR ONX Om heparin and warfarin In sinus rhythm On antibiotics for cellulitis Patrick Almonte MD, FACC * Nusrat Us, [facility] - 11/01/2023 9:40 AM CDT Warfarin monitoring [...] add Vancomycin for left lower extremity cellulitis Tyler prn for pain control CPAP nightly Encouraged [...] ESRD on peritoneal dialysis initially presented to [facility] in [facility] on October 09 for symptoms [...] free T4, synthroid started Fernandez Carranza MD [facility]: MD Chula Domínguez, MD Renny Flood PA Derek Larson, MD FASN Rose Mattli, MD Shanda Pederson, ROBERTO [address] [place], [place] [address] [phone] - Office [phone] - Fax * Nida Starr, GALLERY INTERN - 10/31/2023 10:20 AM CDT Physical Therapy [...] Date Expected End Date End Date PT [facility] 1 10/21/23 11/04/23 -- Goal Details: Patient will perform supine<>sit Independent. Goal Start Date Expected End Date End Date PT [facility] 2 10/21/23 11/04/23 -- Goal Details: Patient will perform bed<>chair transfer Modified Independent with ww. Goal Start Date Expected End Date End Date PT [facility] 3 10/21/23 11/04/23 -- Goal Details: Patient will ambulate 350 feet Modified Independent with wheeled walker. Goal Start Date Expected End Date End Date PT [facility] 4 10/21/23 11/04/23 -- Goal [...] mg. Continueto monitor INR. * Emiliana Dickson, BENCH WORKER APPRENTICE - 10/31/2023 8:40 AM CDT Daily Progress [...] Dose Route Frequency al & mag hydroxide xovcrxnjtww-oughqsrdvooavsy-vmljcapfk-nystatin (MAGIC MOUTHWASH) oral suspension 1-1-1-1 20 mL [...] sternotomy healing well ASSESSMENT/PLAN: CAD - prior MT with multiple PCI - [facility] showed multivessel disease - LVEF dropped [...] doppler shows no DVT Emiliana Dickson NP [facility] 10/31/2023 8:40 AM * [...] 1 View - Portable - in AM [[id number]] Collected: 10/26/23 0740 Order Status: Completed Updated: [...] Continue Ancef for left lower extremity cellulitis Tyler prn for pain control CPAP nightly Encouraged incentive spirometer use and increased activity Stress ulcer prophylaxis: Protonix DVT prophylaxis: INR therapeutic PT/OT: Inpatient rehab denied by insurance, will explore alternative options Plan reviewed with LESLY Larose 10/30/2023 * Nida Starr, GALLERY INTERN - 10/30/2023 11:37 AM CDT Physical Therapy [...] End Date End Date PT LTG - [facility] 1 10/21/23 11/04/23 -- Goal Details: Patient will perform supine<>sit Independent. Goal Start Date Expected End Date End Date PT [facility] 2 10/21/23 11/04/23 -- Goal Details: Patient will perform bed<>chair transfer Modified Independent with ww. Goal Start Date Expected End Date End Date PT [facility] 3 10/21/23 11/04/23 -- Goal Details: Patient will ambulate 350 feet Modified Independent with wheeled walker. Goal Start Date Expected End Date End Date PT [facility] 4 10/21/23 11/04/23 -- Goal [...] ESRD on peritoneal dialysis initially presented to [facility] in [facility] on October 09 for symptoms [...] free T4, synthroid started Fernandez Carranza MD [facility]: MD Chula Domínguez PA Graeme Mindel, MD Justin Krafft, PA Derek Larson, MD FASN Rose Mattli, NP Rohan Devanpalli, MD Candace Shirley, NP [address] [place] [address] [phone] - Office [phone] - Fax * Joselin Strickland MD - [...] Dose Route Frequency al & mag hydroxide dhpdwvaqpin-whesdrnlwhemtfe-vplztxxnz-nystatin (MAGIC MOUTHWASH) oral suspension 1-1-1-1 20 mL [...] sternotomy healing well ASSESSMENT/PLAN: CAD - prior MT with multiple PCI - [facility] showed multivessel [...] cellulitis. -venous doppler pending Emiliana Dickson NP [facility] 10/30/2023 8:17 AM * Nida Starr, GALLERY INTERN - 10/30/2023 7:44 AM CDT Physical Therapy [...] ESRD on peritoneal dialysis initially presented to [facility] in [facility] on October 09 for symptoms [...] consultation which lead to a [facility]. Results were notable for severe CAD [...] D/W nursing and Dr. Thao Walker MD [facility]: MD Chula Domínguez PA Graeme Mindel, MD Justin Krafft, MD STANISLAV Camacho, MD Shanda Pederson, BENCH WORKER APPRENTICE [address] [place], [place] [address] [phone] - Office [phone] - Fax * Manda Schaffer NP - [...] Dose Route Frequency al & mag hydroxide onmhrtfcrba-lkkglmngktuojfr-jyxkpuhnu-nystatin (MAGIC MOUTHWASH) oral suspension 1-1-1-1 20 mL [...] sternotomy healing well ASSESSMENT/PLAN: CAD - prior MT with multiple PCI - [facility] showed multivessel disease - LVEF dropped [...] LLE -venous doppler pending Manda Schaffer NP [facility] 10/29/2023 9:35 AM Cosigned [...] discharge Plan reviewed with LESLY Mack 10/28/2023 CTOR OF INSTITUTIONAL SALES * Sophia Peoples COTA - 10/28/2023 2:17 [...] Hills OT at 10/30/2023 1:30 PM CDT CTOR OF INSTITUTIONAL SALES * Adam Walker MD - 10/28/2023 1:22 PM CST Images from the original note were not included. Nephrology Juvenal Garvin Jr. - 1970 Primary : Aditya Correa MD History and interval events: 53-year-old gentleman with history of type 1 diabetes mellitus on insulin pump, CHF, CAD, ESRD on peritoneal dialysis initially presented to [facility] in [facility] on October 09 for symptoms [...] consultation which lead to a [facility]. Results were notable for severe CAD [...] T4, consider thyroid supplementation? Adam Walker MD [facility]: MD Chula Domínguez, MD Renny Flood PA Derek Larson, MD FASN Rose Mattli, MD Shanda Pederson, ROBERTO [address] [place] [id number] [phone] - Office [phone] - Fax CTOR OF INSTITUTIONAL SALES * Manda Schaffer NP - 10/28/2023 8:01 [...] Dose Route Frequency al & mag hydroxide cjhrlbetull-ihffpuujfszhvox-xwghoqcmy-nystatin (MAGIC MOUTHWASH) oral suspension 1-1-1-1 20 mL [...] mL 0.5-20 mL intra-catheter Q8H [facility] sodium chloride tablet 1 g 1 g [...] sternotomy healing well ASSESSMENT/PLAN: CAD - prior MT with multiple PCI - C showed multivessel [...] management per primary/nephrology team Manda Schaffer NP [facility] 10/28/2023 8:02 AM Cosigned by Ramirez Newberry MD at 10/28/2023 1:08 PM DIRECTOR OF INSTITUTIONAL SALES CTOR OF INSTITUTIONAL SALES CTOR OF INSTITUTIONAL SALES * Yolanda Campos PA - 10/27/2023 6:58 [...] discharge Plan reviewed with LESLY Pantoja 10/27/2023 CTOR OF INSTITUTIONAL SALES * Taylor Jorge, RD - 10/27/2023 2:33 PM CST Nutrition Follow-up Progress Note Encounter Date: 10/27/23 2:33 PM Nutrition Progress Summary: Patient is a 53 y.o. male. Admit Dx: CAD in elim ira artery [I25.10]. Admitted on 10/13/2023. Patient's intake [...] Review: Scheduled Meds: al & mag hydroxide fmdhslacilm-ylxdclygwvgwgoe-nhuikcxsr-nystatin, 20 mL, swish & swallow, Q6H amiodarone, [...] of Weight Used for Estimated Protein : Moran Protein Needs Based on g/k.4 Total Protein Estimated Needs (gm): 105.42 Kcal/kg Type of Weight Used for Estimated Kcals: Moran Kcal/k Total Kcal/kg Estimated Needs : 2259 [...] High protein intake. Taylor Jorge RD, LD CTOR OF INSTITUTIONAL SALES * Sophia Peoples COTA - 10/27/2023 1:25 [...] Suzie Aiken OT at 10/27/2023 2:23 PM DIRECTOR OF INSTITUTIONAL SALES CTOR OF INSTITUTIONAL SALES CTOR OF INSTITUTIONAL SALES * Joselin Strickland MD - 10/27/2023 12:02 [...] oral Q6H PRN al & mag hydroxide nzrvtwvgkmj-ygrhaeksugwigot-cvqopvkpg-nystatin (MAGIC MOUTHWASH) oral suspension 1-1-1-1 20 mL [...] Rate: 100 bpm RR Interval: 599 msec [place] Interval: 0 msec QRS Duration: 145 msec QT Interval: 394 msec QTC Interval: 451 msec P-R-T [place]: 0 - -9 - 132 degrees IMPRESSION: NORMAL SINUS RHYTHM [REASON: NORMAL P AXIS, MO, RATE \T\ RHYTHM] LEFT BUNDLE BRANCH BLOCK OCCASIONAL PVC Electronically Signed By: Jesus Huerta MD ASSESSMENT/PLAN: CAD - prior MT with multiple PCI - [facility] showed multivessel disease - LVEF dropped [...] management per primary/nephrology team Joselin Strickland MD, [facility] [phone] [facility] 10/27/2023 12:02 PM CTOR OF INSTITUTIONAL SALES * Fernandez Carranza MD - 10/27/2023 9:44 AM CST Images from the original note were not included. Nephrology Juvenal Garvin Jr. - 1970 Primary : Aditya Correa MD History and interval events: 53-year-old gentleman with history of type 1 diabetes mellitus on insulin pump, CHF, CAD, ESRD on peritoneal dialysis initially presented to [facility] in [facility] on October 09 for symptoms [...] consultation which lead to a [facility]. Results were notable for severe CAD [...] will see this weekend Fernandez Carranza MD [facility]: MD Chula Domínguez, MD Renny Flood PA Derek Larson, MD FASN Rose Mattli, NP Rohan Devanpalli, MD Candace Shirley, NP [address] [place], [place] [address] [phone] - Office [phone] - Fax CTOR OF INSTITUTIONAL SALES CTOR OF INSTITUTIONAL SALES * Guerline Rodriguez PA - 10/26/2023 4:12 [...] 1 View - Portable - in AM [[id number]] Collected: 10/26/2340 Order Status: Completed Updated: 10/26/23742 [...] discharge Plan reviewed with LESLY Larose 10/26/2023 CTOR OF INSTITUTIONAL SALES * Pradeep Reeves NP - 10/26/2023 2:16 [...] oral Q6H ASHLEY al & mag hydroxide bfmyqgmonbd-vvrfbjoojxbavtn-kfsudjrnr-nystatin (MAGIC MOUTHWASH) oral suspension 1-1-1-1 20 mL [...] infusion (premix) 0-33 Units/kg/hr 12.7 Units/kg/hr (10/25/23 6802) INSULIN SUBCUTANEOUS PUMP insulin lispro (HumaLOG) 100 [...] No focal deficits ASSESSMENT/PLAN: CAD - prior MT with multiple PCI - [facility] showed multivessel [...] - management per primary/nephrology team SHAMIKA Donald [facility] 10/26/2023 2:17 PM CTOR OF INSTITUTIONAL SALES * Fernandez Carranza MD - 10/26/2023 12:29 PM CST Images from the original note were not included. Nephrology Juvenal Garvin Jr. - 1970 Primary : Aditya Correa MD History and interval events: 53-year-old gentleman with history of type 1 diabetes mellitus on insulin pump, CHF, CAD, ESRD on peritoneal dialysis initially presented to [facility] in [facility] on October 09 for symptoms [...] PO4 binder with meals Fernandez Carranza MD [facility]: MD Chula Domínguez PA Graeme Mindel, MD Justin Krafft, PA Derek Larson, MD FASN Rose Mattli, NP Rohan Devanpalli, MD Candace Shirley, NP [address] [place], [place] [id number] [phone] - Office [phone] - Fax CTOR OF INSTITUTIONAL SALES * Nusrat Us [facility] - 10/26/2023 11:17 AM CST Warfarin monitoring [...] previous supratherapeutic response to 3 mg doses. CTOR OF INSTITUTIONAL SALES * Gustavo Swan, PT - 10/26/2023 10:10 [...] of ESRD on PD, CAD s/p PCI, MT, and DVTon chronic anticoagulation, Type 1 DM, HTN who presented to [facility] initially on 10/09/23 with general malaise [...] Mobility Status;Inaccessible home environment;Home environment challenged Modified [place] Score 1 Plan Plan Continue with current [...] Date Expected End Date End Date PT [facility] - [facility] 1 10/21/23 11/04/23 -- Goal Details: Patient will perform supine<>sit Independent. Goal Start Date Expected End Date End Date PT [facility] - [facility] 2 10/21/23 11/04/23 -- Goal Details: Patient will perform bed<>chair transfer Modified Independent with ww. Goal Start Date Expected End Date End Date PT [facility] 3 10/21/23 11/04/23 -- Goal Details: Patient will ambulate 350 feet Modified Independent with wheeled walker. Goal Start Date Expected End Date End Date PT [facility] 4 10/21/23 11/04/23 -- Goal Details: Patient will ambulate up/down 1 step Modified Independent as needed to enter and exithome. Education: Patient has been educated on the role of PT, safety , precautions, mobility training, and home exercise program. Education completed via explanation, teach back, and demonstration. Patientverbalized understanding and demonstrated understanding CTOR OF INSTITUTIONAL SALES * Nida Starr, GALLERY INTERN - 10/25/2023 3:01 PM CST Physical Therapy 10/25/23 1501 PT Last Visit Session Type Treatment PT Received On 10/25/23 Safe Environment Arm band checked;Patient found in supine;Session completed bedside;Gait belt utilized for all out of bed mobility Subjective Agreeable to Therapy Additional Pertinent History per eval: 53 y/o M presents for surgical intervention on 10/14/23 from [facility]. Pt is s/p CABG x 3 (SVG-PDA, SVG-OM, BRICE-LAD) and mechanical AVR on 10/[address] Valero. Pt has history of ESRD on PD, CAD s/p PCI, MT, and DVT on chronic anticoagulation, Type 1 [...] Date Expected End Date End Date PT [facility] - [facility] 1 10/21/23 11/04/23 -- Goal Details: Patient will perform supine<>sit Independent. Goal Start Date Expected End Date End Date PT [facility] - [facility] 2 10/21/23 11/04/23 -- Goal Details: Patient will perform bed<>chair transfer Modified Independent with ww. Goal Start Date Expected End Date End Date PT [facility] 3 10/21/23 11/04/23 -- Goal Details: Patient will ambulate 350 feet Modified Independent with wheeled walker. Goal Start Date Expected End Date End Date PT [facility] 4 10/21/23 11/04/23 -- Goal Details: Patient will ambulate up/down 1 step Modified Independent as needed to enter and exithome. Cosigned by Gustavo Swan, PT at 10/25/2023 4:45 PM DIRECTOR OF INSTITUTIONAL SALES CTOR OF INSTITUTIONAL SALES CTOR OF INSTITUTIONAL SALES * Guerline Rodriguez PA - 10/25/2023 2:13 [...] 1 View - Portable - in AM [[id number]] Collected: 10/25/23 1143 Order Status: Completed Updated: [...] discharge Plan reviewed with LESLY Larose 10/25/2023 CTOR OF INSTITUTIONAL SALES * Nusrat Us RPh - 10/25/2023 10:39 [...] with another 1.5 mg dose and reassess. CTOR OF INSTITUTIONAL SALES * Sophia Peoples COTA - 10/25/2023 9:43 [...] Vitals post activity BP 129/70, HR 63, [id number] Safe Environment End of Therapy Session Safe [...] Suzie Aiken OT at 10/25/2023 11:49 AM DIRECTOR OF INSTITUTIONAL SALES CTOR OF INSTITUTIONAL SALES CTOR OF INSTITUTIONAL SALES * Emiliana Dickson NP - 10/25/2023 9:27 [...] No focal deficits ASSESSMENT/PLAN: CAD - prior MT with multiple PCI - LHC showed multivessel [...] management per primary/nephrology team Emiliana Dickson NP [facility] 10/25/2023 9:28 AM Cosigned by Dilip Cohen MD at 10/25/2023 9:55 AM DIRECTOR OF INSTITUTIONAL SALES CTOR OF INSTITUTIONAL SALES CTOR OF INSTITUTIONAL SALES Associated attestation - Dilip Cohen MD - 10/25/2023 9:55 AM DIRECTOR OF INSTITUTIONAL SALES Patient seen at the bedside Is continuing [...] presents for surgical intervention on 10/14/23 from [facility]. Pt is s/p CABG x 3 (SVG-PDA, SVG-OM, BRICE-LAD) and mechanical AVR on 10/[address] Valero. Pt has history of ESRD on PD, CAD s/p PCI, MT, and DVT on chronic anticoagulation, Type 1 [...] (from Physical Therapy) Active Problems Problem: PT [facility] Start Date: 10/21/23 Goal Start Date Expected End Date End Date PT [facility] - [facility] 1 10/21/23 11/04/23 -- Goal Details: Patient will perform supine<>sit Independent. Goal Start Date Expected End Date End Date PT [facility] - [facility] 2 10/21/23 11/04/23 -- Goal Details: Patient will perform bed<>chair transfer Modified Independent with ww. Goal Start Date Expected End Date End Date PT [facility] 3 10/21/23 11/04/23 -- Goal Details: Patient will ambulate 350 feet Modified Independent with wheeled walker. Goal Start Date Expected End Date End Date PT [facility] - [facility] 4 10/21/23 11/04/23 -- Goal Details: Patient will ambulate up/down 1 step Modified Independent as needed to enter and exithome. Cosigned by Gina Mason DPT at 10/24/2023 3:12 PM DIRECTOR OF INSTITUTIONAL SALES CTOR OF INSTITUTIONAL SALES CTOR OF INSTITUTIONAL SALES * Fernandez Carranza MD - 10/24/2023 10:56 AM CST Images from the original note were not included. Nephrology Juvenal Garvin Jr. - 1970 Primary : Aditya Correa MD History and interval events: 53-year-old gentleman with history of type 1 diabetes mellitus on insulin pump, CHF, CAD, ESRD on peritoneal dialysis initially presented to [facility] in [facility] on October 09 for symptoms [...] PO4 binder with meals Fernandez Carranza MD [facility]: Ron R. Lostant, MD Chula Heady, PA Fernandez MD Renny Carranza PA Derek Larson, MD FASN Rose Mattli, NP Rohan Devanpalli, MD Candace Shirley, ROBERTO [address] [place], [place] [address] [phone] - Office [phone] - Fax CTOR OF INSTITUTIONAL SALES * Nona Alcala PA - 10/24/2023 10:15 [...] discharge Patient discussed with LESLY Vallecillo 10/24/2023 CTOR OF INSTITUTIONAL SALES * Nusrat Us RPh - 10/24/2023 9:49 [...] setting (nutrition). Warfarin dose today: 1.5 mg CTOR OF INSTITUTIONAL SALES * Salena Rene NP - 10/24/2023 9:26 AM CST Cardiology Daily Progress - [facility] SUBJECTIVE: Mr. Garvin is resting in bed. [...] No focal deficits ASSESSMENT/PLAN: CAD - prior MT with multiple PCI - C showed multivessel [...] water restriction with hyponatremia Salena Rene NP [facility] 10/24/2023 9:26 AM CTOR OF INSTITUTIONAL SALES * Wyatt Rodriguez EP-C - 10/24/2023 8:08 AM CST Inpatient Cardiac Rehab Education Patient Information Patient Name: Juvenal Garvin Jr. : 1970 Room/Bed: [place] [address] Insurance: [employer] + IDPA Progress Note Cinema Operator: ROSA Silva Date: 10/24/2023 Referring Diagnosis for Cardiac Rehab - s/p CABG x 3, AVR Education Provided Explained my role as a Cardiac Rehab Navigator (CRN). Provided Cardiac Rehab education to patient. Family was (not) present. Patient was provided with Cardiac Rehab education folder as well as a [facility] Heart Education booklet. Risk Factors: HTN, [...] fats)and exercise. Advised patient to consult their quiller tender, nurse, and/or physician if they have any questions about their diet/nutrition. Cardiac Rehab: Gave patient options of facilities for Outpatient Cardiac Rehab (OCR) in their community. Explained OCR program. Patient expressed knowledge towards local OCR program - patient prefers [facility] I anticipate no barriers for patient [...] working towards eventually trying to reach the [place] [employer] recommendations in regards to exercise: [...] when it would be appropriate to call [facility]'s office, go to the ER, or call 911. Insurance Coverage: Briefly explained general insurance coverage for OCR, but assured patient that OCR facility will usually call insurance and inform patient of more of an approximate coverage. Post-Discharge: Explained process between discharge from hospital, and getting set up in an OCR program - follow upwith [facility], CRN follow up calls, OCR program contact. Conclusion Patient seems likely to participate in OCR. Reassured patient of importance and health care provider support of OCR. Patient verbalized understanding of education, and all questions were answered to the best of my ability. Will complete order for OCR to be sent to [facility]. Thank you for allowing us to assistant commissioner in the care of this patient, please don't hesitate to contact the Cardiac Rehab Navigator office with any questions: [phone]. CTOR OF INSTITUTIONAL SALES * Fernandez Carranza MD - 10/23/2023 5:30 PM CST Images from the original note were not included. Nephrology Juvenal Garvin Jr. - 1970 Primary : Aditya Correa MD History and interval events: 53-year-old gentleman with history of type 1 diabetes mellitus on insulin pump, CHF, CAD, ESRD on peritoneal dialysis initially presented to [facility] in [facility] on October 09 for symptoms [...] consultation which lead to a [facility]. Results were notable for severe CAD [...] PO4 binder with meals Fernandez Carranza MD [facility]: MD Chula Domínguez, MD Renny Flood PA Derek Larson, MD FASN Rose Mattli, MD Shanda Pederson, ROBERTO [address] [place], [place] [address] [phone] - Office [phone] - Fax CTOR OF INSTITUTIONAL SALES * Nona Alcala PA - 10/23/2023 3:04 [...] discharge Patient discussed with LESLY Vallecillo 10/23/2023 CTOR OF INSTITUTIONAL SALES * Gustavo Swan, PT - 10/23/2023 10:42 [...] presents for surgical intervention on 10/14/23 from [facility]. Pt is s/p CABG x 3 (SVG-PDA, SVG-OM, BRCIE-LAD) and mechanical AVR on 10/[address] Valero. Pt has history of ESRD on PD, CAD s/p PCI, MT, and DVT on chronic anticoagulation, Type 1 [...] (from Physical Therapy) Active Problems Problem: PT [facility] Start Date: 10/21/23 Goal Start Date Expected End Date End Date PT [facility] - [facility] 1 10/21/23 11/04/23 -- Goal Details: Patient will perform supine<>sit Independent. Goal Start Date Expected End Date End Date PT [facility] - [facility] 2 10/21/23 11/04/23 -- Goal Details: Patient will perform bed<>chair transfer Modified Independent with ww. Goal Start Date Expected End Date End Date PT [facility] 3 10/21/23 11/04/23 -- Goal Details: Patient will ambulate 350 feet Modified Independent with wheeled walker. Goal Start Date Expected End Date End Date PT [facility] 4 10/21/23 11/04/23 -- Goal Details: Patient will ambulate up/down 1 step Modified Independent as needed to enter and exithome. Education: Patient has been educated on the role of PT, safety , precautions, mobility training, stairs, and home exercise program. Education completed via explanation, teach back, and demonstration.Patient verbalized understanding, demonstrated understanding, and needs ongoing reinforcement CTOR OF INSTITUTIONAL SALES * Nusrat Us RPh - 10/23/2023 9:40 [...] the previous starting dose of 3 mg. CTOR OF INSTITUTIONAL SALES * Nida Starr PTA - 10/23/2023 8:10 AM CST Physical Therapy 10/23/23 0810 PT Last Visit Session Type Treatment PT Received On 10/23/23 PT Missed Visit Reason Procedure/testing/appointment (Pt is currently on PD - nursing will notify when pt is finished.) CTOR OF INSTITUTIONAL SALES * Saulo Kimball COTA - 10/23/2023 7:10 [...] Suzie Aiken OT at 10/23/2023 9:51 AM DIRECTOR OF INSTITUTIONAL SALES CTOR OF INSTITUTIONAL SALES CTOR OF INSTITUTIONAL SALES * Bartolo Solorio MD - 10/23/2023 6:38 AM CST Cardiology Inpatient Progress Note [facility] SUBJECTIVE: Pt had no [...] cyanosis or clubbing. ASSESSMENT/PLAN: CAD - prior MT with multiple PCI - LHC showed multivessel [...] valve Bartolo Solorio MD, [facility], [facility] 10/23/2023 6:38 AM CTOR OF INSTITUTIONAL SALES * Ron Martinez MD - 10/22/2023 8:57 PM CST Images from the original note were not included. Nephrology Juvenal Garvin Jr. - 1970 Primary : Aditya Correa MD History and interval events: 53-year-old gentleman with history of type 1 diabetes mellitus on insulin pump, CHF, CAD, ESRD on peritoneal dialysis initially presented to [facility] in [facility] on October 09 for symptoms [...] regimen Start CORRINE weekly Ron Martinez MD [facility]: MD Chula Domínguez PA Graeme Mindel, MD Justin Krafft, PA Derek Larson, MD FASN Rose Mattli, NP Rohan Devanpalli, MD Candace Shirley, ROBERTO [address] [place] [id number] [phone] - Office [phone] - Fax CTOR OF INSTITUTIONAL SALES * Yolanda Campos PA - 10/22/2023 5:09 [...] prophylaxis Patient discussed with LESLY Danielle 10/22/2023 CTOR OF INSTITUTIONAL SALES * Makayla Diallo [facility] - 10/22/2023 9:06 AM CST Warfarin monitoring [...] following significant increase yesterday Makayla Diallo, PharmD Wrecker Driver 10/22/23 9:06 AM CTOR OF INSTITUTIONAL SALES * Bartolo Solorio MD - 10/22/2023 6:43 AM CST Cardiology Inpatient Progress Note [facility] SUBJECTIVE: Pt had no [...] cyanosis or clubbing. ASSESSMENT/PLAN: CAD - prior MT with multiple PCI - [facility] showed multivessel disease - LVEF dropped [...] wafarin with mechanical valve Bartolo Solorio MD, [facility] 10/22/2023 6:43 AM CTOR OF INSTITUTIONAL SALES * Yolanda Campos PA - 10/21/2023 4:19 [...] prophylaxis Patient discussed with LESLY Danielle 10/21/2023 CTOR OF INSTITUTIONAL SALES CTOR OF INSTITUTIONAL SALES * Gina Mason DPT - 10/21/2023 9:05 AM CST Physical Therapy 10/21/23 0905 General Chart Reviewed Yes Session Type Evaluation PT Received On 10/21/23 Safe Environment Arm band checked;Patient found in supine;Gait belt utilized for all out of bed mobility Subjective Agreeable to Therapy Additional Pertinent History 53 y/o M presents for surgical intervention on 10/14/23 from [facility]. Pt is s/p CABG x 3 (SVG-PDA, SVG-OM, BRICE-LAD) and mechanical AVR on 10/[address] Valero. 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 CTOR OF INSTITUTIONAL SALES * Ron Martinez MD - 10/21/2023 8:48 AM CST Images from the original note were not included. Nephrology Juvenal Garvin Jr. - 1970 Primary : Aditya Correa MD History and interval events: 53-year-old gentleman with history of type 1 diabetes mellitus on insulin pump, CHF, CAD, ESRD on peritoneal dialysis initially presented to [facility] in [facility] on October 09 for symptoms [...] regimen Start CORRINE weekly Ron Martinez MD [facility]: MD Chula Domínguez PA Graeme Mindel, MD Justin Krafft, PA Derek Larson, MD FASN Rose Mattli, NP Rohan Devanpalli, MD Candace Shirley, NP [address] [place], [place] [address] [phone] - Office [phone] - Fax CTOR OF INSTITUTIONAL SALES * Bartolo Soloroi MD - 10/21/2023 8:08 AM CST Cardiology Inpatient Progress Note [facility] SUBJECTIVE: Pt had no [...] cyanosis or clubbing. ASSESSMENT/PLAN: CAD - prior MT with multiple PCI - LHC showed multivessel [...] valve Bartolo Solorio MD, [facility], [facility] 10/21/2023 8:08 AM CTOR OF INSTITUTIONAL SALES * Dominique Fuentes, DETECTIVE - 10/21/2023 12:29 AM CST 10/20/232246 NPPV Information NPPV Mode CPAP NPPV Status Refused NPPV Type V-60 NPPV ID L RT Therapist Assist Charges RT Therapist Assist NPPV 1 Encouraged patient to have his CPAP unit brought in since intolerable of ours. CTOR OF INSTITUTIONAL SALES * Carly Spencer, RD - 10/20/2023 3:27 PM CST Nutrition Follow-up Progress Note Encounter Date: 10/20/23 3:30 PM Nutrition Progress Summary: Patient is a 53 y.o. male. Admit Dx: CAD in elim ira artery [I25.10]. Admitted on 10/13/2023. Pt s/p CABG/AVR 10/17/23. PMH includes Type I DM, ESRD on PD. Pt reports he is tolerating his meals and drinking the Nepro supplement. Increased protein intake encouraged. Pt new on Coumadin. Educated pt on Coumadin/diet interaction. Pt is familiar with his diabetic renal diet and plans to improve his adherence to diet. Nutrition Specialist consult noted. Pt with good understanding [...] of Weight Used for Estimated Protein : Moran Protein Needs Based on g/k.4 Total Protein Estimated Needs (gm): 105.42 Kcal/kg Type of Weight Used for Estimated Kcals: Moran Kcal/k Total Kcal/kg Estimated Needs : 2259 [...] High protein intake. 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 [facility] Daily Progress Note- Patient: Juvenal Garvin Jr. : 1970 Age: 53 y.o. male Admitting Physician: Jaqueline Valero MD Metal Bench Patternmaker: Kirsten Burns MD Shift: [facility] AM Interval History: NEON Admitted to the hospital on 10/13/2023 11:18 PM for CAD in elim ira artery [I25.10] Hospital Course: (10/17/23) s/p CABG [...] clean, dry, intact. SVG site with dermabond LINOLEUM MECHANIC. Drains: Chest tubes to -20 suction with [...] - 10/20/2359 10/20/23699 - 10/21/23 0659 Shift [id number] 24 Hour Total 1899-0659 24 Hour Total [...] s/p mechanical AVR Post CPB LEIA on SPUD GRADER 5 with LVEF 40-50%, normal RV. (Told during report) no note in place. Arrived on SPUD GRADER 5, NE 0.05 with low filling pressures and AAI 90. Post op bleeding requiring multiple transfusions. Bleeding from CT slowed overnight but oozing at lines and drain sites. - EPW VVI bu - Consider DC'ing CT - ASA daily - DC Heparin drip - Continue Warfarin per pharmacy - INR goal 2-3 - custodial anticoagulation plan Warfarin and Plavix for NSTEMI - statin daily - Torsemide 100mg daily start today - DC Arterial line Paroxysmal atrial fibrillation Sinus bradycardia History of pAF. On Eliquis at home. Was on Heparin drip pre op. Arrived from OR AAI at 90 with reported bradycardia in PCU while on BB SB 50-60s. SPUD GRADER weaned off overnight and EPW to VVI [...] plan with the patient's team and other medical/building energy consultant staff. This time was in addition to and separate from care provided by other practitioners on this day of service. Cosigned by Kirsten Burns MD at 10/29/2023 10:56 PM CDT CTOR OF INSTITUTIONAL SALES * Nusrat Us RPh - 10/20/2023 12:06 [...] increase as much as it did today. CTOR OF INSTITUTIONAL SALES * Bartolo Solorio MD - 10/20/2023 9:18 AM CST Cardiology Daily Progress - [facility] SUBJECTIVE: Mr. Garvin is resting comfortably in [...] mg 1,000 mg oral Q6H [facility] aspirin chewable tablet 81 mg 81 mg [...] 0.9% (premix) solution 1,000 mg 1,000 mg [id number] PRN 1,000 mg at 10/18/23 0032 Carrier [...] No focal deficits ASSESSMENT/PLAN: CAD - prior MT with multiple PCI - C showed multivessel [...] fibrillation (HR in 60s) Salena Rene NP [facility] 10/20/2023 9:18 AM Pt evaluated with BENCH WORKER APPRENTICE. He is doing well clinically with planned transfer from the ICU today. Afib rates are well-controlled (currently in the 60s) with plan detailed above. CTOR OF INSTITUTIONAL SALES CTOR OF INSTITUTIONAL SALES * Chula Valera PA - 10/20/2023 6:43 AM CST Images from the original note were not included. Nephrology Juvenal Garvin Jr. - 1970 Primary : Aditya Correa MD History and interval events: 53-year-old gentleman with history of type 1 diabetes mellitus on insulin pump, CHF, CAD, ESRD on peritoneal dialysis initially presented to [facility] in [facility] on October 09 for symptoms [...] Continue active and nutritional vitamin-D LESLY Ortiz [facility]: MD Chula Domínguez PA Graeme Mindel, MD Justin Krafft, MD STANISLAV Camacho NP Rohan Devanpalli, MD Candace Shirley, ROBERTO [address] [place], [place] [address] [phone] - Office [phone] - Fax CTOR OF INSTITUTIONAL SALES CTOR OF INSTITUTIONAL SALES * Eliana Márquez, PT - 10/19/2023 2:25 PM CST Physical Therapy Cancellation 10/19/23 1425 PT Last Visit Session Type Other (comment) PT Received On 10/19/23 Subjective Other Subjective Comment Per RN, Pt. is too fatigued to participate in therapy, will attempt evaluation 10/19. PT Missed Visit Reason MD/RN Hold;Asleep CTOR OF INSTITUTIONAL SALES * Chula Valera PA - 10/19/2023 12:42 PM CST Images from the original note were not included. Nephrology Juvenal Garvin . - 1970 Primary : Aditya Correa MD History and interval events: 53-year-old gentleman with history of type 1 diabetes mellitus on insulin pump, CHF, CAD, ESRD on peritoneal dialysis initially presented to [facility] in [facility] on October 09 for symptoms [...] consultation which lead to a [facility]. Results were notable for severe CAD [...] vitamin-D Resume [place] with meals LESLY Ortiz [facility]: MD Chula Domínguez PA Graeme Mindel, MD Justin Krafft, PA Derek Larson, MD FASN Rose Mattli, NP Rohan Devanpalli, MD Candace Shirley, NP [address] [place], [place] [address] [phone] - Office [phone] - Fax CTOR OF INSTITUTIONAL SALES CTOR OF INSTITUTIONAL SALES * Reyes Odom - 10/19/2023 11:49 AM CST Occupational Therapy Evaluation 10/19/23 1035 General Chart Reviewed Yes Session Type Evaluation OT Received On 10/19/23 Safe Environment Arm band checked;Patient found in supine Subjective Agreeable to Therapy Subjective Comment I'm so cold and tired. Additional Pertinent History 53 y/o M presents for surgical intervention on 10/14/23 from [facility]. Pt is s/p CABG x 3 (SVG-PDA, SVG-OM, BRICE-LAD) and mechanical AVR on 10/[address] Valero. Pt has history of ESRD on PD, CAD s/p PCI, MT, and DVT on chronic anticoagulation, Type 1 [...] mobility at baseline. 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 Grooming Grooming: Where assessed Chair Grooming: Level of assistance Minimum Assist (Pt exhibiting functionally weak property insurance claims examiner strength and fine motor skills with BUEs. [...] Suzie Aiken OT at 10/19/2023 11:50 AM DIRECTOR OF INSTITUTIONAL SALES CTOR OF INSTITUTIONAL SALES CTOR OF INSTITUTIONAL SALES * Felipe Robledo DO - 10/19/2023 8:09 [...] to chair today progressing Felipe Robledo DO, [facility] 10/19/2023 8:09 AM CTOR OF INSTITUTIONAL SALES * Dawna Castellanos NP - 10/19/2023 6:57 AM CSTAssociated Order(s): Critical Care Post-Procedure Diagnose(s): CAD in elim ira artery Images from the original note were not included. [facility] Daily Progress Note- Patient: Juvenal Garvin Jr. : 1970 Age: 53 y.o. male Admitting Physician: Jaqueline Valero MD Metal Bench Patternmaker: Kirsten Burns MD Shift: [facility] AM Interval History: SPUD GRADER wean q6h for Scv02 >65-> off d/t HTN Changed to VVI 50, HR 60 Nasal cpap Dc dilaudid, dec oxy to 2.5 Admitted to the hospital on 10/13/2023 11:18 PM for CAD in elim ira artery [I25.10] Hospital Course: (10/17/23) s/p CABG [...] clean, dry, intact. SVG site with dermabond LINOLEUM MECHANIC. Drains: Chest tubes to -20 suction with [...] 10/18/23699 - 10/19/2365810/19/23699 - 10/20/23 0659 Shift 8931-3081 4611-9221 24 Hour Total 9694-7590 4789-8875 24 Hour Total INTAKE P.O. 100 100 I.V.(mL/kg) 500(4) 500(4) Shift Total(mL/kg) 600(4.8) 600(4.8) OUTPUT Urine(mL/kg/hr) 155(0.1) 135(0.1) 290(0.1) 20 20 Drains 0 0 0 Other 1279 1279 1459 1459 Chest Tube 20 115 135 Shift Total(mL/kg) 1454(11.5) 250(2) 1704(13.5) 1479(11.7) 1479(11.7) NET -1454 350 1102 -1479 1474 Weight (kg) 126.2 126.2 126.2 126.2 126.2 [...] s/p mechanical AVR Post CPB LEIA on SPUD GRADER 5 with LVEF 40-50%, normal RV. (Told during report) no note in place. Arrived on SPUD GRADER 5, NE 0.05 with low filling pressures and AAI 90. Post op bleeding requiring multiple transfusions. Bleeding from CT slowed overnight but oozing at lines and drain sites. Overnight SPUD GRADER weaned off due to hypertension. EPW changed to VVI bu - Check Scvo2 and lactate now--->lactate 1.0, scvo2 70 - EPW VVI bu - CT to (-)20cm suction, can DC PCT today - ASA daily - Increase Heparin drip to full nomogram - Continue Warfarin per pharmacy - intermediate frame tender anticoagulation plan Warfarin and Plavix for NSTEMI - statin daily - Torsemide 100mg daily start today - DC Arterial line Paroxysmal atrial fibrillation Sinus bradycardia History of pAF. On Eliquis at home. Was on Heparin drip pre op. Arrived from OR AAI at 90 with reported bradycardia in PCU while on BB SB 50-60s. SPUD GRADER weaned off overnight and EPW to VVI [...] on PD. - Continue Insulin infusion per Fults protocol - do not turn off drip [...] glycol and bisacodyl suppository PRN. Glycemic control: Fults Protocol insulin gtt.. Lab Results Component Value [...] plan with the ICU team and other medical/building energy consultant staff, making frequent assessments and decisions [...] Burns MD at 10/29/2023 10:55 PM CDT CTOR OF INSTITUTIONAL SALES * Chula Valera PA - 10/18/2023 2:46 PM CST Images from the original note were not included. Nephrology Juvenal Garvin . - 1970 Primary : Aditya Correa MD History and interval events: 53-year-old gentleman with history of type 1 diabetes mellitus on insulin pump, CHF, CAD, ESRD on peritoneal dialysis initially presented to [facility] in [facility] on October 09 for symptoms [...] consultation which lead to a [facility]. Results were notable for severe CAD [...] vitamin-D Resume Phoslo with meals LESLY Ortiz [facility]: MD Chula Domínguez PA Graeme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 Order(s): IP CONSULT TO ANESTHESIA ATTENDING Juvenal Garvin Jr. [id number] [place] [id number] Jaqueline Valero MD Pre-Education Assessment Units of [...] at this time. Loraine Medina, LUAN, Retail Warehouse Associate 10/20/2023 11:27 AM CTOR OF INSTITUTIONAL SALES * Augustin Bethea MD - 10/18/2023 10:51 [...] cardiac enzymes. Further evaluation with [facility] revealed multivessel coronary artery disease. Patient transferred to [facility] for CABG. Patient underwent CABG x 3, mechanical AVR . Endocrine diabetes management. Hemoglobin A1c noted to be 8.1% 10/14, Patient has an insulin pump at home, not review his setting as the pump not available bedside. Patient continues to be confused and could not provide any history From endocrinology note in the past at [facility] 2021: BASAL RATE TOTAL BASAL DAILY DOSE: [...] PUMP: Continue Omnipod 5 insulin pump with Spectral Edge G6 CGM at home settings: TIME BASAL [...] high Assessment /Plan Principal Problem: CAD in elim ira artery 1. Uncontrolled type 1 diabetes, A1c [...] don't hesitate to call. Augustin Bethea MD [email or web address] Office phone: [phone] Office fax: [phone] CTOR OF INSTITUTIONAL SALES CTOR OF INSTITUTIONAL SALES * Fernandez Carranza MD - 10/14/2023 3:27 PM CSTAssociated Order(s): IP CONSULT TO NEPHROLOGY Images from the original note were not included. Nephrology Juvenal Garvin Jr. - 1970 Primary : Aditya Correa MD History and interval events: 53-year-old gentleman with history of type 1 diabetes mellitus on insulin pump, CHF, CAD, ESRD on peritoneal dialysis initially presented to [facility] in [facility] on October 09 for symptoms [...] him to hemodialysis perioperatively Fernandez Carranza MD [facility]: Ron R. Lostant, LESLY Givens MD Justin Krafft, PA Derek Larson, MD FASN Rose Mattli, NP Rohan Devanpalli, MD Candace Shirley, NP [address] - [address] [place], [place] [address] [phone] Office [phone] - Fax CTOR OF INSTITUTIONAL SALES CTOR OF INSTITUTIONAL SALES * Guerline Rodriguez PA - 10/14/2023 2:10 PM CSTAssociated Order(s): IP CONSULT TO CARDIOTHORACIC SURGERY Cardiothoracic Surgery Consultation Patient Name: Juvenal Garvin Jr. Admit Date: 10/13/2023 Admitting Provider: Julio Lopez DO Chief Complaint Multivessel coronary artery disease, aortic valve stenosis History of Present Illness Juvenal Garvin is a 53-year-old male who has been transferred to [facility] for consideration of coronary artery bypass grafting and aortic valve replacement. His past medical history includes severe CAD with previous PCI, paroxysmal atrial fibrillation, type 1 diabetes mellitus, ESRD on peritoneal dialysis, hypertension, hyperlipidemia, and sleep apnea. He presented to [facility] in [place], [place] on 10/09/23 complaining of fatigue, malaise, [...] Diabetes mellitus type I (HCC) Dialysis patient ([facility]) (HCC) ESRD on dialysis ([facility]) (HCC) GERD (gastroesophageal reflux disease) Hyperlipidemia Hypertension [...] 10 mg, 10 mg, oral, Daily, Vinay rPatt DO, 10 mg at 10/14/23 0844 famotidine [...] Jaqueline Valero MD at 10/15/2023 10:55 AM DIRECTOR OF INSTITUTIONAL SALES CTOR OF INSTITUTIONAL SALES CTOR OF INSTITUTIONAL SALES CTOR OF INSTITUTIONAL SALES CTOR OF INSTITUTIONAL SALES Associated attestation - Jaqueline Valero MD - 10/15/2023 10:55 AM DIRECTOR OF INSTITUTIONAL SALES I have seen and examined the patient, reviewed the electronic medical record, personally reviewed the patient's cardiac catheterization, and agree with the attached history and physical. In brief, he is a 53-year-old man with a history of end-stage renal disease on peritoneal dialysis,myocardial infarction, multiple prior coronary stenting procedures, and DVT who presented to [facility] with progressive exertional shortness breath, chest pain, and hyperglycemia. Repeat cardiac catheterization there revealed progressive coronary artery disease, which is now severe in all 3main coronary arteries. His left ventricular systolic function was abnormal and an echocardiogram there revealed significant aortic valve stenosis. And severe left ventricular systolic dysfunction. He was transferred to [facility] for further workup and [...] for Monday. Jaqueline Valero MD Cardiothoracic Surgery [facility] * Pradeep Reeves, BENCH WORKER APPRENTICE - 10/14/2023 12:13 PM CSTAssociated Order(s): IP CONSULT TO CARDIOLOGY Cardiology Consult - [facility] Reason For Consult: CAD Requesting Provider: Frank Cody MD SUBJECTIVE: Chief Complaint/History of Present Illness: Mr. Garvin is a 53 y/o man with hx of hypertension, dyslipidemia, diabetes, CAD s/p multiple prior PCI, ESRD, paroxysmal atrial fibrillation and DVT and BEN. The patient presented to [facility] with a complaint of hyperglycemia. He [...] echo. He was transferred to [facility] for CTS evaluation. He is [...] Diabetes mellitus type I (HCC) Dialysis patient ([facility]) (HCC) ESRD on dialysis ([facility]) (HCC) GERD (gastroesophageal reflux disease) Hyperlipidemia Hypertension [...] PUMP: Continue Omnipod 5 insulin pump with Spectral Edge G6 CGM at home settings: TIME BASAL [...] and affect appropriate -Cardiac Cath (10/13/23 at [facility]): LM no dz. LCX 99% ostial stenosis and 90% stenosis atOM/LCX bifurcation. LAD mild diffuse disease in the ostium with a 90% stenosis at the origin of a very small high diagonal branch and otherwise mild LAD disease. RCA 99% mid stenosis. -Echo (10/11/23 at [facility]): LVEF 20-25%, moderate ASSESSMENT/PLAN: 1. CAD: [...] please don't hesitate to call. SHAMIKA [facility] 10/14/2023 12:13 PM Cosigned by Felipe Robledo DO at 10/15/2023 10:13 AM DIRECTOR OF INSTITUTIONAL SALES CTOR OF INSTITUTIONAL SALES CTOR OF INSTITUTIONAL SALES CTOR OF INSTITUTIONAL SALES CTOR OF INSTITUTIONAL SALES documented in this encounter Nursing Notes * [...] (Comments): blister-popped Wound Status Healing Site Assessment [place];Moist Marie-wound Assessment Fragile;Flaky;Dry;Erythematous Margins Defined edges Closure Unapproximated Drainage Amount Small Drainage Description Serous Drainage Odor No odor Dressing Status New Dressing Silver foam;Gauze rolled Interventions Cleansed Recommendations: breaker engineer to complete Polymem dressing as ordered. Pressure injury prevention measures dn moisture management in place. Education: Plan of Care discussed with: Patient, breaker engineer Questions answered: YES Wound/Ostomy will follow patient: [...] PUMP: Continue Omnipod 5 insulin pump with Globa.licom G6 CGM at home settings: TIME BASAL [...] high Assessment /Plan Principal Problem: CAD in elim ira artery 1. Uncontrolled type 1 diabetes, A1c [...] out of town till 11/14. Pl call director of industrial relations provider. Once ready per primary team can [...] don't hesitate to call. Augustin Bethea MD [facility] [email or web address] Office phone: [phone] Office fax: [phone] * Plan of Care - Jessica Rodriguez [...] PUMP: Continue Omnipod 5 insulin pump with Spectral Edge G6 CGM at home settings: TIME BASAL [...] high Assessment /Plan Principal Problem: CAD in elim ira artery 1. Uncontrolled type 1 diabetes, A1c [...] don't hesitate to call. Augustin Bethea MD [facility] [email or web address] Office phone: [phone] Office fax: [phone] * Post-Procedure Note - Basilia John RN [...] PUMP: Continue Omnipod 5 insulin pump with Spectral Edge G6 CGM at home settings: TIME BASAL [...] high Assessment /Plan Principal Problem: CAD in elim ira artery 1. Uncontrolled type 1 diabetes, A1c [...] don't hesitate to call. Augustin Bethea MD [facility] [email or web address], [email or web address] Office phone: [phone] Office fax: [phone] * Post-Procedure Note - Basilia John RN [...] notification from [facility] acute rehab hospital admissions officer, Carey Phillips , patients [employer] Medicare insurance denied request for authorization for inpatient acute rehab . Peer to peer offered at [phone] opt 4.peer to peer needs to be requested by 1200 noon tomorrow, 10/30. Reference no. [id number]. Member ID no. [id number]. Guerline GRACE notified of above. * Consults, [...] PUMP: Continue Omnipod 5 insulin pump with Spectral Edge G6 CGM at home settings: TIME BASAL [...] high Assessment /Plan Principal Problem: CAD in elim ira artery 1. Uncontrolled type 1 diabetes, A1c [...] don't hesitate to call. Augustin Bethea MD [facility] [email or web address] Office phone: [phone] Office fax: [phone] * Post-Procedure Note - Sugar Swanson RN [...] Afebrile. Room air. NSR. Pain treated with Tyler. ABX started for patients right leg.Lower dopplers [...] Room air. NSR. Patient pain treated with Tyler. Left herman dressing changed x1 due to leaking. CTOR OF INSTITUTIONAL SALES * Plan of Care - Roel West LCSW - 10/28/2023 3:40 PM CST Finished Yarn Examiner covering and followed up with request to learn if patient was approved for inpatient rehabilitation/insurance authorization status. SW inquired with Dr. Mya Frederick and awaiting notification. Intake Coordinators are not on-site and not customary to receive notification from insurance on weekend. CTOR OF INSTITUTIONAL SALES * Consults, Subsequent - Augustin Bethea MD - 10/28/2023 2:50 PM DIRECTOR OF INSTITUTIONAL SALES Endocrine Note Reason for Consult: type 1 [...] THIS IS FOR THE INSULIN PUMP: Continue Pathfinder TechnologiesipSnaptrip 5 insulin pump with Spectral Edge G6 CGM at home settings: TIME BASAL [...] high Assessment /Plan Principal Problem: CAD in elim ira artery 1. Uncontrolled type 1 diabetes, A1c [...] don't hesitate to call. Augustin Bethea MD [email or web address] [email or web address] Office phone: [phone] Office fax: [phone] CTOR OF INSTITUTIONAL SALES CTOR OF INSTITUTIONAL SALES * Post-Procedure Note - Basilia John RN - 10/28/2023 7:14 AM DIRECTOR OF INSTITUTIONAL SALES Peritoneal Dialysis Treatment Summary: Juvenal Michael Garvin [...] well. Denied any c/o. PD drsg D&I CTOR OF INSTITUTIONAL SALES * Consults, Subsequent - Augustin Bethea MD - 10/27/2023 5:47 PM DIRECTOR OF INSTITUTIONAL SALES Endocrine Note Reason for Consult: type 1 [...] PUMP: Continue Omnipod 5 insulin pump with Spectral Edge G6 CGM at home settings: TIME BASAL [...] high Assessment /Plan Principal Problem: CAD in elim ira artery 1. Uncontrolled type 1 diabetes, A1c [...] don't hesitate to call. Augustin Bethea MD [facility] [email or web address] Office phone: [phone] Office fax: [phone] CTOR OF INSTITUTIONAL SALES * Plan of Care - Genie Benjamin RN - 10/27/2023 12:55 PM CST [facility] inpatient acute vocational rehabilitation administrator pursuing insurance authorization for rehab when patient medically stable for discharge to rehab. CTOR OF INSTITUTIONAL SALES * Post-Procedure Note - Radha Mercado RN [...] Tolerated tx without issues. Effluent clear yellow. CTOR OF INSTITUTIONAL SALES * Consults, Subsequent - Augustin Bethea MD - 10/26/2023 6:25 PM DIRECTOR OF INSTITUTIONAL SALES Endocrine Note Reason for Consult: type 1 [...] PUMP: Continue Omnipod 5 insulin pump with Spectral Edge G6 CGM at home settings: TIME BASAL [...] high Assessment /Plan Principal Problem: CAD in elim ira artery 1. Uncontrolled type 1 diabetes, A1c [...] don't hesitate to call. Augustin Bethea MD [facility] [email or web address] Office phone: [phone] Office fax: [phone] CTOR OF INSTITUTIONAL SALES * Plan of Care - Manda Solorzano RN - 10/26/2023 12:06 PM CST Per LIANET, pt has been accepted to [facility] Re[facility] (auth pending). Pt will be removed from [facility] HH schedule and no services provided at this time. CTOR OF INSTITUTIONAL SALES * Plan of Care - Jacquelin Veliz MSW - 10/26/2023 10:43 AM CST KNITTER MECHANIC received message from Michelle with [facility] and they are able to accept Pt. They will start insurance authorization as PA feels that Pt is close to discharge. KNITTER MECHANIC met with Pt at bedside [facility] and will be starting insurance authorization for him. Pt states that he is agreeable to discharging to acute rehab when ready for discharge. CTOR OF INSTITUTIONAL SALES * Post-Procedure Note - Basilia John RN - 10/26/2023 7:30 AM DIRECTOR OF INSTITUTIONAL SALES Peritoneal Dialysis Treatment Summary: Juvenal Garvin Jr. [...] well. Denied any c/o. PD drsg D&I CTOR OF INSTITUTIONAL SALES * Plan of Care - Cyndi Persaud RN - 10/25/2023 4:14 PM CST Goals: Clinical Goals for the Shift: VSS. Afebrile. Room air. NSR. Monitor heart rate and rhythm. Manage pain. Manage heparin drip. Monitor PTTs. PD. Walk x3. Ensure safety and comfort. Summary: VSS. Afebrile. Room air. NSR. Pain treated with a one time dose of Tyler. Most recent PTT is 72. Heparin drip at 12.7units/kg/hr. CTOR OF INSTITUTIONAL SALES * Consults, Subsequent - Augustin Bethea MD - 10/25/2023 11:14 AM DIRECTOR OF INSTITUTIONAL SALES Endocrine Note Reason for Consult: type 1 [...] THIS IS FOR THE INSULIN PUMP: Continue In[employer] 5 insulin pump with Spectral Edge G6 CGM at home settings: TIME BASAL [...] high Assessment /Plan Principal Problem: CAD in elim ira artery 1. Uncontrolled type 1 diabetes, A1c [...] don't hesitate to call. Augustin Bethea MD [facility] [email or web address], [email or web address] Office phone: [phone] Office fax: [phone] CTOR OF INSTITUTIONAL SALES * Post-Procedure Note - Radha Mercado RN - 10/25/2023 10:08 AM CST Peritoneal Dialysis Treatment Summary: Juvenal Garivn Jr. received peritoneal dialysis on 10/24/2023 PD [...] Comments: Tolerated tx well. Effluent clear, yellow. CTOR OF INSTITUTIONAL SALES * Plan of Care - Carey Alas [...] 20 SpO2: [96 %-98 %] 96 % CTOR OF INSTITUTIONAL SALES * Consults, Subsequent - Augustin Bethea MD - 10/24/2023 11:07 AM DIRECTOR OF INSTITUTIONAL SALES Endocrine Note Reason for Consult: type 1 [...] PUMP: Continue Omnipod 5 insulin pump with Spectral Edge G6 CGM at home settings: TIME BASAL [...] high Assessment /Plan Principal Problem: CAD in elim ira artery 1. Uncontrolled type 1 diabetes, A1c [...] any questions, please don't hesitate to call. uAgustin Bethea MD [facility] [email or web address] Office phone: [phone] Office fax: [phone] CTOR OF INSTITUTIONAL SALES * Post-Procedure Note - Radha Mercado RN [...] Tolerated tx without issues. Effluent clear yellow. CTOR OF INSTITUTIONAL SALES * Plan of Care - Lucinda Mathews [...] during sleep periods will improve Outcome: Progressing CTOR OF INSTITUTIONAL SALES CTOR OF INSTITUTIONAL SALES CTOR OF INSTITUTIONAL SALES * Plan of Care - Carey Alas [...] 20 SpO2: [95 %-99 %] 95 % CTOR OF INSTITUTIONAL SALES * Plan of Care - Genie Benjamin RN - 10/23/2023 12:17 PM CST PT/OT recommending inpatient acute rehab at discharge. Informed patient of above. Patient declined rehab facility list and states he prefers [facility] inpatient acute rehab hospital. Referral sent. Response pending. CTOR OF INSTITUTIONAL SALES * ECIN Note - Genie Benjamin RN [...] presents for surgical intervention on 10/14/23 from [facility]. Pt is s/p CABG x 3 (SVG-PDA, SVG-OM, BRICE-LAD) and mechanical AVR on 10/[address] Valero. Pt has history of ESRD on PD, CAD s/p PCI, MT, and DVT on chronic anticoagulation, Type 1 [...] and mobility at baseline. 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 -HK Grooming: Where assessed -- Chair -HK Grooming: Level of assistance -- Minimum Assist Pt exhibiting functionally weak property insurance claims examiner strength and fine motor skills with BUEs. [...] -- Moderate assist santa/doff B socks with automobile and property underwriter and sock aid,Minimal assist santa/doff sweatpants with automobile and property underwriter -KB -- Bed Mobility Comments 1 SBA [...] presents for surgical intervention on 10/14/23 from [facility]. Pt is s/p CABG x 3 (SVG-PDA, SVG-OM, BRICE-LAD) and mechanical AVR on 10/[address] Valero. 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 Pt is s/p CABG x 3 (SVG-PDA, SVG-OM, BRICE-LAD) and mechanical AVR on 10/[address] Valero. Pt has history of ESRD on PD, CAD s/p PCI, MT, and DVT on chronic anticoagulation, Type 1 [...] Initials Name Effective Dates SS Nida Starr, GALLERY INTERN 06/30/22 - Eliana Joiner, PT 12/05/22 - NW Gustavo Swan, PT 04/10/23 - PT Notes 10/21/2023 10:25 AM Progress Notes signed by Gina Mason DPT 10/23/2023 11:53 AM Progress Notes signed by Gustavo Swan, PT , COMPUTER ENGINEERING TECHNOLOGIST Eval and Treat Last 72 Hours COMPUTER ENGINEERING TECHNOLOGIST Evaluation No documentation. COMPUTER ENGINEERING TECHNOLOGIST Treatment No documentation. Clinical Swallow Study No documentation. COMPUTER ENGINEERING TECHNOLOGIST Notes Notes from 10/21/23 through 10/23/23 No notes of this type exist for this encounter. CTOR OF INSTITUTIONAL SALES * Consults, Subsequent - Augustin Bethea MD - 10/23/2023 10:48 AM DIRECTOR OF INSTITUTIONAL SALES Endocrine Note Reason for Consult: type 1 [...] PUMP: Continue Omnipod 5 insulin pump with Spectral Edge G6 CGM at home settings: TIME BASAL [...] high Assessment /Plan Principal Problem: CAD in elim ira artery 1. Uncontrolled type 1 diabetes, A1c [...] don't hesitate to call. Augustin Bethea MD [facility] [email or web address] Office phone: [phone] Office fax: [phone] CTOR OF INSTITUTIONAL SALES * Post-Procedure Note - Radha Mercado, LUAN [...] Tolerated tx without issues. Effluent clear, yellow. CTOR OF INSTITUTIONAL SALES * Plan of Care - Jessica Rodriguez [...] impaired skin integrity will decrease Outcome: Progressing CTOR OF INSTITUTIONAL SALES * Post-Procedure Note - Rayna Be RN - 10/22/2023 12:03 PM DIRECTOR OF INSTITUTIONAL SALES Peritoneal Dialysis Treatment Summary: Juvenal Garvin Jr. [...] dwell time. Added dwell time 7 minutes. CTOR OF INSTITUTIONAL SALES * Plan of Care - Hermes Savage, DETECTIVE - 10/22/2023 7:30 AM CST Problem: Obstructive Sleep Apnea (BEN) Goal: Patients ability to maintain adequate ventilation during sleep periods will improve Outcome: Progressing Positive Expiratory Pressure Therapy Patient educated on goals of vibratory PEP therapy. Will continue to monitor patient technique and encourage use of Vibratory PEP device. Patient educated on effective cough and deep breathing at this time. CTOR OF INSTITUTIONAL SALES * Plan of Care - Jessica Rodriguez [...] impaired skin integrity will decrease Outcome: Progressing CTOR OF INSTITUTIONAL SALES * Consults, Subsequent - Augustin Bethea MD - 10/21/2023 4:43 PM DIRECTOR OF INSTITUTIONAL SALES Endocrine Note Reason for Consult: type 1 [...] PUMP: Continue Omnipod 5 insulin pump with Spectral Edge G6 CGM at home settings: TIME BASAL [...] high Assessment /Plan Principal Problem: CAD in elim ira artery 1. Uncontrolled type 1 diabetes, A1c [...] don't hesitate to call. Augustin Bethea MD [facility] [email or web address] Office phone: [phone] Office fax: [phone] CTOR OF INSTITUTIONAL SALES * Plan of Care - Hermes Savage [...] cough and deep breathing at this time. CTOR OF INSTITUTIONAL SALES * Post-Procedure Note - Sugar Swanson RN [...] fibrin. Dr. Martinez notified of all findings. CTOR OF INSTITUTIONAL SALES * Plan of Care - Dominique Fuentes RRT - 10/20/2023 8:19 PM CST Problem: Respiratory Goal: Achieves optimal ventilation and oxygenation Outcome: Progressing Positive Expiratory Pressure Therapy Patient educated on goals of PEP therapy. Will continue to monitor patient technique and encourage use of PEP device. Patient educated on effective cough and deep breathing at this time. CTOR OF INSTITUTIONAL SALES * Plan of Care - Summer Pradhan [...] except when coughing. Tylenol given. Comfort/safety ensured. CTOR OF INSTITUTIONAL SALES * Consults, Subsequent - Augustin Bethea MD - 10/20/2023 3:50 PM DIRECTOR OF INSTITUTIONAL SALES Endocrine Note Reason for Consult: type 1 [...] PUMP: Continue Omnipod 5 insulin pump with Globa.licom G6 CGM at home settings: TIME BASAL [...] high Assessment /Plan Principal Problem: CAD in elim ira artery 1. Uncontrolled type 1 diabetes, A1c [...] don't hesitate to call. Augustin Bethea MD [email or web address] Office phone: [phone] Office fax: [phone] CTOR OF INSTITUTIONAL SALES * Post-Procedure Note - Sugar Swanson RN [...] Dressing c/d/I. Clear yellow effluent with fibrin. CTOR OF INSTITUTIONAL SALES * Plan of Care - Hermes Savage [...] to monitor sputum amount, color, and consistency. CTOR OF INSTITUTIONAL SALES * Plan of Care - Campos Farmer [...] labs, titrate heparin to therapeutic, pain control CTOR OF INSTITUTIONAL SALES * Consults, Subsequent - Augustin Bethea MD - 10/19/2023 7:08 PM DIRECTOR OF INSTITUTIONAL SALES Endocrine Note Reason for Consult: type 1 [...] PUMP: Continue Omnipod 5 insulin pump with Globa.licom G6 CGM at home settings: TIME BASAL [...] high Assessment /Plan Principal Problem: CAD in elim ira artery 1. Uncontrolled type 1 diabetes, A1c [...] don't hesitate to call. Augustin Bethea MD [facility] [email or web address] Office phone: [phone] Office fax: [phone] CTOR OF INSTITUTIONAL SALES * Plan of Care - Toña Saha [...] protocol. Wean FiO2 to maintain SpO2 >92%. CTOR OF INSTITUTIONAL SALES * Post-Procedure Note - Sugar Swanson RN [...] Clear yellow effluent with fibrin. MD notified. CTOR OF INSTITUTIONAL SALES * Plan of Care - Ken Martell RRT - 10/18/2023 10:25 PM CST NPPV Patient is tolerating non-invasive ventilation well. Mask fits well with minimal leak. No skin break down noted. Will continue to monitor and titrate per MD order. CTOR OF INSTITUTIONAL SALES * Provider Query - Dawna Castellanos NP [...] stenosis. - 10/18 PN : CAD.. Prior MT and multiple PCI.. the patient underwent cardiac cath that showed multivessel disease. - Labs/Notes from OSH not available - Treatment: CABG: References: Fourth [place] Definition of Myocardial Infarction Myocardial Infarction Diagnosis of myocardial infarction requires: Elevated troponin blood test (troponin value above 99th percentile upper reference limit) AND at least one of the following: Symptoms of acute myocardial ischemia (Types 1-5 MT) Clinical evidence of ischemia, as evidenced in an EKG showing new ischemic changes (Type 1, Type 2,Type 3, or Type 4a MT) Development of pathological Q waves (Types 1-5 MT) Imaging evidence of new loss of viable myocardium or new regional wall motion abnormality in a pattern consistent with an ischemic etiology (Types 1-5 MT) Identification of a coronary thrombus by angiography including intracoronary imaging or by autopsy (Type 1 MT only) Angiographic findings consistent with procedural flow-limiting [...] Guidelines for Coding and Reporting, 2019 Fourth [place] Definition of Myocardial Infarction, Scot Uriostegui et al., Journal of [place] [employer] 2018March 2018, http://www.onlinejacc.org/content/early//j.jacc .[id number] Fourth [place] Definition Separates MT From Myocardial Injury, Lisa Freeman., [employer], April 15, 2018, [email or web address] [place] definition of myocardial infarction, Joint ESC/ACCF/AHA/WHF Task [...] become part of the patient???s medical record. CTOR OF INSTITUTIONAL SALES * Plan of Care - Renetta Keys [...] 2L NC. Pulls 1500 on IS. 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 Insulin gtt continues per orders. Appetite hindered due to nausea and some vomiting this afternoon. Zofran and haldol given. Pt states is better but doesn't want to eat at this time. Will continue to encourage increased activity, IS, Improved appetite, CTOR OF INSTITUTIONAL SALES * Post-Procedure Note - Sugar Swanson RN [...] and intact and effluent clear and yellow. CTOR OF INSTITUTIONAL SALES * Plan of Care - Ken Martell, FANY - 10/18/2023 3:31 AM CST Mechanical Ventilation Patient is seen on full ventilator support. Patient is synchronous with the ventilator at the time.Will continue to monitor all pertinent lab data, chest radiographs and CT scans when available. Will titrate per MD order. CTOR OF INSTITUTIONAL SALES * Op Note - Jaqueline Valero MD [...] mm OnX mechanical prosthesis, model #ONXANE, serial #[id number] ) 2. Coronary artery bypass grafting x [...] placement (25 cm) DATE OF PROCEDURE 10/17/2023 AIR[employer]SM[employer] CEZAR Bernstein ANESTHESIA General Endotracheal Anesthesia ANESTHESIOLOGIST [...] with continuous 6-0 Prolene suture. A retrograde photo engraver was given, the patient was placed into [...] checked through the bypass grafts with a TraNet'te Doppler flow probe and each was found [...] Physician) Aditya Correa MD (Primary Care Provider) CTOR OF INSTITUTIONAL SALES * Brief Op Note - Jaqueline Valero MD - 10/17/2023 8:47 AM CST Operative Progress Note Surgical Team: Surgeons and Role: * Jaqueline Valero MD - Primary Anesthesiologist: Ayden Alan MD TREE SCOUT: Ravi Thacker CRNA Director Of Communications: Chang Stout CCP; Fransisco Ziegler CCP Programming Equipment Operator: Nini Gibbs RN Scrub: Yamilet Bolivar RN; Teresa Dillon ST RNFA: Jessica Frost RN; Carey Weber RN Orientee Programming Equipment Operator: Dee Ibarra RN DATE OF SURGERY : 10/17/2023 Preoperative Diagnosis: Pre-op Diagnosis * Aortic valve stenosis, etiology of cardiac valve disease unspecified [I35.0] * 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 Item Serial No. Sole Filler Lot No. LRB No. Used Action ON-X INTRNL Valve Coronary Aortic Mechanical On X 25mm ONXANE-25 - [id number] - [id number] ON-X INTRNL Valve Coronary Aortic Mechanical On X 25mm ONXANE-25 [id number] On-X Intrnl N/A 1 Implanted Blood/Blood Products Transfused: 1 unit platelets, 2 units FFP, 10 pack cryo, 3 units PRBC Complications: None Condition on Discharge from the operating room was stable Jaqueline Valero MD Date: 10/17/2023 Time: 12:59 PM No Resident involved on case CTOR OF INSTITUTIONAL SALES * Post-Procedure Note - Zia Mahoney RN - 10/17/2023 3:38 AM DIRECTOR OF INSTITUTIONAL SALES Peritoneal Dialysis Treatment Summary: Juvenal Garvin Jr. [...] well. Effluent yellow and clear. Dressing c/d/i. CTOR OF INSTITUTIONAL SALES * Plan of Care - Lucinda Mathews, FANY - 10/16/2023 9:28 PM CST NPPV- Patient is tolerating non-invasive ventilation well. Mask fits well with minimal leak. No skin break down noted. Will continue to monitor and titrate per MD order. Problem: Obstructive Sleep Apnea (BEN) Goal: Patients ability to maintain adequate ventilation during sleep periods will improve Outcome: Progressing CTOR OF INSTITUTIONAL SALES * Plan of Care - Yamilet Lopez [...] Understanding discharge needs will improve Outcome: Progressing CTOR OF INSTITUTIONAL SALES * Initial Assessments - Genie Benjamin RN - 10/16/2023 10:46 AM DIRECTOR OF INSTITUTIONAL SALES CM Initial Assessment Interview Note Information Obtained [...] Medicare and IDPA Prescription Coverage: yes Pharmacy: [id number] - [place], [place] - [address] [place] [address] Primary Care Provider: Aditya Correa MD Prior [...] a week How often do you attend zoroastrianism or advent services?: 1 to 4 times per year Do you belong to any clubs or organizations such as zoroastrianism groups, unions, fraternal [...] Screening Potential discharge needs include: Home Health: nursing home (10/16/231041) Dialysis: Dialysis History Start End Type Center Comments Peritoneal [facility] Dialysis Center Information [facility] Address: [address] [place] [address] Behavioral Health Services: Behavioral Health Services: No (10/16/231041) Patient expects to be Discharged to: Private residence, (10/16/231041) Additional Information: 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 Active with [facility] in [place], [place] under the care of Dr. Stephen. [...] Collaboration with patient, MD, direct care nurse, Finished Yarn Examiner, and other members of the health care team to assure needed interventions completed. 2. Return patient to optimal level of self-care post discharge. 3. Business Law Teacher will follow for Discharge Planning - interventions as needed 4. Anticipated level of care at discharge 5. Planned Discharge Disposition Genie Benjamin RN CTOR OF INSTITUTIONAL SALES * Post-Procedure Note - Jackie Masters RN [...] & intact , Effluent clear & yellow CTOR OF INSTITUTIONAL SALES * Plan of Care - Juanito Barrett RRT - 10/15/2023 9:43 PM CST Nocturnal CPAP Patient is tolerating non-invasive ventilation well. Mask fits well with minimal leak. No skin break down noted. Will continue to monitor and titrate per MD order.Oxygen Therapy Patient is being managed on oxygen titration protocol. Wean FiO2 to maintain SpO2 >92%. CTOR OF INSTITUTIONAL SALES * Plan of Care - Janett Schulz [...] c/o chest pain, therapeutic on heparin infusion CTOR OF INSTITUTIONAL SALES * Post-Procedure Note - Zia Mahoney RN - 10/15/2023 4:44 AM DIRECTOR OF INSTITUTIONAL SALES Peritoneal Dialysis Treatment Summary: Juvenal Garvin Jr. [...] well. Effluent yellow and clear. Dressing c/d/I. CTOR OF INSTITUTIONAL SALES * Plan of Care - Juanito Barrett RRT - 10/14/2023 9:44 PM CST Nocturnal CPAP Patient is tolerating non-invasive ventilation well. Mask fits well with minimal leak. No skin break down noted. Will continue to monitor and titrate per MD order.Oxygen Therapy Patient is being managed on oxygen titration protocol. Wean FiO2 to maintain SpO2 >92%. CTOR OF INSTITUTIONAL SALES * Plan of Care - Janett Schulz [...] pain, heparin gtt subtherapeutic, adjusted trinity MAR CTOR OF INSTITUTIONAL SALES * Plan of Care - Ellie Zeng RN - 10/14/2023 1:55 AM CST Goals: Clinical Goals for the Shift: monitor vs tele labs and blood sugars, orientate to unit, promote comfort and safety, manage pain Summary: patient stable throughout shift with no complaints of pain. Blood sugars trending down, patient had RT set up CPAP for sleep. Patient NPO since 0000. CTOR OF INSTITUTIONAL SALES CTOR OF INSTITUTIONAL SALES documented in this encounter Plan of Treatment Pending Results Name Type Priority Associated Diagnoses Date /Time Renal function panel Lab Routine 09/22 1:06 AM DIRECTOR OF INSTITUTIONAL SALES Fibrinogen Lab Routine 10/18/2023 1:5 4 AM DIRECTOR OF INSTITUTIONAL SALES Protime-INR Lab Timed 10/25/2023 12 :33 AM DIRECTOR OF INSTITUTIONAL SALES aPTT Lab Routine 10/26/2023 2:2 9 AM DIRECTOR OF INSTITUTIONAL SALES aPTT Lab Routine 10/27/2023 2:3 0 AM DIRECTOR OF INSTITUTIONAL SALES TSH Lab Routine 10/27/2023 2:3 0 AM DIRECTOR OF INSTITUTIONAL SALES Scheduled Orders Name Type Priority Associated Diagnoses [...] Home Health Outpatient Referral Routine CAD in elim ira artery 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 (CMS/HCC) (HCC) [...] PERITONEAL DIALYSIS (CCPD) Routine 10/29/2023 12:30 AM DIRECTOR OF INSTITUTIONAL SALES POCT GLUCOSE DEVICE Routine 10/28/2023 8:22 PM DIRECTOR OF INSTITUTIONAL SALES POCT GLUCOSE DEVICE Routine 10/28/2023 5:24 PM DIRECTOR OF INSTITUTIONAL SALES POCT GLUCOSE DEVICE Routine 10/28/2023 12:45 PM DIRECTOR OF INSTITUTIONAL SALES POCT GLUCOSE DEVICE Routine 10/28/2023 8:04 AM DIRECTOR OF INSTITUTIONAL SALES XR CHEST 1 VIEW IP Routine 10/28/2023 6:00 AM DIRECTOR OF INSTITUTIONAL SALES EGFR Routine 10/28/2023 12:34 AM DIRECTOR OF INSTITUTIONAL SALES APTT Routine 10/28/2023 12:34 AM DIRECTOR OF INSTITUTIONAL SALES PROTIME-INR Routine 10/28/2023 12:34 AM DIRECTOR OF INSTITUTIONAL SALES CBC WITHOUT DIFFERENTIAL Routine 10/28/2023 12:34 AM DIRECTOR OF INSTITUTIONAL SALES MAGNESIUM Routine 10/28/2023 12:34 AM DIRECTOR OF INSTITUTIONAL SALES RENAL FUNCTION PANEL Routine 10/28/2023 12:34 AM DIRECTOR OF INSTITUTIONAL SALES CONTINUOUS CYCLIC PERITONEAL DIALYSIS (CCPD) Routine 10/28/2023 12:30 AM DIRECTOR OF INSTITUTIONAL SALES POCT GLUCOSE DEVICE Routine 10/27/2023 10:01 PM DIRECTOR OF INSTITUTIONAL SALES POCT GLUCOSE DEVICE Routine 10/27/2023 5:48 PM DIRECTOR OF INSTITUTIONAL SALES CONTINUOUS CYCLIC PERITONEAL DIALYSIS (CCPD) Routine 10/27/2023 3:23 PM DIRECTOR OF INSTITUTIONAL SALES POCT GLUCOSE DEVICE Routine 10/27/2023 11:54 AM DIRECTOR OF INSTITUTIONAL SALES T4, FREE Routine 10/27/2023 11:02 AM DIRECTOR OF INSTITUTIONAL SALES POCT GLUCOSE DEVICE Routine 10/27/2023 8:28 AM DIRECTOR OF INSTITUTIONAL SALES XR CHEST 1 VIEW IP Routine 10/27/2023 6:14 AM DIRECTOR OF INSTITUTIONAL SALES OSMOLALITY, BLOOD Routine 10/27/2023 6:02 AM DIRECTOR OF INSTITUTIONAL SALES EGFR Routine 10/27/2023 2:30 AM DIRECTOR OF INSTITUTIONAL SALES APTT Routine 10/27/2023 2:30 AM DIRECTOR OF INSTITUTIONAL SALES PROTIME-INR Routine 10/27/2023 2:30 AM DIRECTOR OF INSTITUTIONAL SALES CBC WITHOUT DIFFERENTIAL Routine 10/27/2023 2:30 AM DIRECTOR OF INSTITUTIONAL SALES TSH Routine 10/27/2023 2:30 AM DIRECTOR OF INSTITUTIONAL SALES MAGNESIUM Routine 10/27/2023 2:30 AM DIRECTOR OF INSTITUTIONAL SALES RENAL FUNCTION PANEL Routine 10/27/2023 2:30 AM DIRECTOR OF INSTITUTIONAL SALES POCT GLUCOSE DEVICE Routine 10/26/2023 11:15 PM DIRECTOR OF INSTITUTIONAL SALES POCT GLUCOSE DEVICE Routine 10/26/2023 4:53 PM DIRECTOR OF INSTITUTIONAL SALES POCT GLUCOSE DEVICE Routine 10/26/2023 11:57 AM DIRECTOR OF INSTITUTIONAL SALES PEP THERAPY Routine 10/26/2023 8:00 AM DIRECTOR OF INSTITUTIONAL SALES POCT GLUCOSE DEVICE Routine 10/26/2023 8:00 AM DIRECTOR OF INSTITUTIONAL SALES XR CHEST 1 VIEW IP Routine 10/26/2023 5:09 AM DIRECTOR OF INSTITUTIONAL SALES EGFR Routine 10/26/2023 2:29 AM DIRECTOR OF INSTITUTIONAL SALES APTT Routine 10/26/2023 2:29 AM DIRECTOR OF INSTITUTIONAL SALES PROTIME-INR Routine 10/26/2023 2:29 AM DIRECTOR OF INSTITUTIONAL SALES CBC WITHOUT DIFFERENTIAL Routine 10/26/2023 2:29 AM DIRECTOR OF INSTITUTIONAL SALES MAGNESIUM Routine 10/26/2023 2:29 AM DIRECTOR OF INSTITUTIONAL SALES RENAL FUNCTION PANEL Routine 10/26/2023 2:29 AM DIRECTOR OF INSTITUTIONAL SALES APTT Timed 10/25/2023 9:15 PM DIRECTOR OF INSTITUTIONAL SALES POCT GLUCOSE DEVICE Routine 10/25/2023 9:14 PM DIRECTOR OF INSTITUTIONAL SALES POCT GLUCOSE DEVICE Routine 10/25/2023 4:51 PM DIRECTOR OF INSTITUTIONAL SALES APTT Timed 10/25/2023 2:48 PM DIRECTOR OF INSTITUTIONAL SALES POCT GLUCOSE DEVICE Routine 10/25/2023 11:15 AM DIRECTOR OF INSTITUTIONAL SALES POCT GLUCOSE DEVICE Routine 10/25/2023 9:49 AM DIRECTOR OF INSTITUTIONAL SALES POCT GLUCOSE DEVICE Routine 10/25/2023 7:36 AM DIRECTOR OF INSTITUTIONAL SALES XR CHEST 1 VIEW IP Routine 10/25/2023 6:52 AM DIRECTOR OF INSTITUTIONAL SALES APTT Routine 10/25/2023 6:48 AM DIRECTOR OF INSTITUTIONAL SALES POCT GLUCOSE DEVICE Routine 10/25/2023 4:23 AM DIRECTOR OF INSTITUTIONAL SALES EGFR Routine 10/25/2023 12:34 AM DIRECTOR OF INSTITUTIONAL SALES CBC WITHOUT DIFFERENTIAL Routine 10/25/2023 12:34 AM DIRECTOR OF INSTITUTIONAL SALES MAGNESIUM Routine 10/25/2023 12:34 AM DIRECTOR OF INSTITUTIONAL SALES RENAL FUNCTION PANEL Routine 10/25/2023 12:34 AM DIRECTOR OF INSTITUTIONAL SALES APTT Timed 10/25/2023 12:33 AM DIRECTOR OF INSTITUTIONAL SALES PROTIME-INR Timed 10/25/2023 12:33 AM DIRECTOR OF INSTITUTIONAL SALES CONTINUOUS CYCLIC PERITONEAL DIALYSIS (CCPD) Routine 10/25/2023 12:30 AM DIRECTOR OF INSTITUTIONAL SALES POCT GLUCOSE DEVICE Routine 10/24/2023 9:51 PM DIRECTOR OF INSTITUTIONAL SALES APTT STAT 10/24/2023 5:15 PM DIRECTOR OF INSTITUTIONAL SALES POCT GLUCOSE DEVICE Routine 10/24/2023 4:42 PM DIRECTOR OF INSTITUTIONAL SALES POCT GLUCOSE DEVICE Routine 10/24/2023 12:17 PM DIRECTOR OF INSTITUTIONAL SALES POCT GLUCOSE DEVICE Routine 10/24/2023 7:44 AM DIRECTOR OF INSTITUTIONAL SALES XR CHEST 1 VIEW IP Routine 10/24/2023 5:54 AM DIRECTOR OF INSTITUTIONAL SALES EGFR Routine 10/24/2023 1:03 AM DIRECTOR OF INSTITUTIONAL SALES PROTIME-INR Routine 10/24/2023 1:03 AM DIRECTOR OF INSTITUTIONAL SALES CBC WITHOUT DIFFERENTIAL Routine 10/24/2023 1:03 AM DIRECTOR OF INSTITUTIONAL SALES MAGNESIUM Routine 10/24/2023 1:03 AM DIRECTOR OF INSTITUTIONAL SALES RENAL FUNCTION PANEL Routine 10/24/2023 1:03 AM DIRECTOR OF INSTITUTIONAL SALES CONTINUOUS CYCLIC PERITONEAL DIALYSIS (CCPD) Routine 10/24/2023 12:30 AM DIRECTOR OF INSTITUTIONAL SALES POCT GLUCOSE DEVICE Routine 10/23/2023 11:14 PM DIRECTOR OF INSTITUTIONAL SALES POCT GLUCOSE DEVICE Routine 10/23/2023 10:43 PM DIRECTOR OF INSTITUTIONAL SALES PEP THERAPY Routine 10/23/2023 6:00 PM DIRECTOR OF INSTITUTIONAL SALES POCT GLUCOSE DEVICE Routine 10/23/2023 5:12 PM DIRECTOR OF INSTITUTIONAL SALES PEP THERAPY Routine 10/23/2023 1:00 PM DIRECTOR OF INSTITUTIONAL SALES POCT GLUCOSE DEVICE Routine 10/23/2023 12:08 PM DIRECTOR OF INSTITUTIONAL SALES PEP THERAPY Routine 10/23/2023 8:00 AM DIRECTOR OF INSTITUTIONAL SALES POCT GLUCOSE DEVICE Routine 10/23/2023 7:54 AM DIRECTOR OF INSTITUTIONAL SALES XR CHEST 1 VIEW IP Routine 10/23/2023 6:24 AM DIRECTOR OF INSTITUTIONAL SALES EGFR Routine 10/23/2023 1:53 AM DIRECTOR OF INSTITUTIONAL SALES PROTIME-INR Routine 10/23/2023 1:53 AM DIRECTOR OF INSTITUTIONAL SALES CBC WITHOUT DIFFERENTIAL Routine 10/23/2023 1:53 AM DIRECTOR OF INSTITUTIONAL SALES MAGNESIUM Routine 10/23/2023 1:53 AM DIRECTOR OF INSTITUTIONAL SALES RENAL FUNCTION PANEL Routine 10/23/2023 1:53 AM DIRECTOR OF INSTITUTIONAL SALES CONTINUOUS CYCLIC PERITONEAL DIALYSIS (CCPD) Routine 10/23/2023 12:30 AM DIRECTOR OF INSTITUTIONAL SALES POCT GLUCOSE DEVICE Routine 10/22/2023 11:55 PM DIRECTOR OF INSTITUTIONAL SALES PEP THERAPY Routine 10/22/2023 10:00 PM DIRECTOR OF INSTITUTIONAL SALES POCT GLUCOSE DEVICE Routine 10/22/2023 9:12 PM DIRECTOR OF INSTITUTIONAL SALES PEP THERAPY Routine 10/22/2023 6:00 PM DIRECTOR OF INSTITUTIONAL SALES POCT GLUCOSE DEVICE Routine 10/22/2023 5:22 PM DIRECTOR OF INSTITUTIONAL SALES PEP THERAPY Routine 10/22/2023 3:07 PM DIRECTOR OF INSTITUTIONAL SALES PEP THERAPY Routine 10/22/2023 3:07 PM DIRECTOR OF INSTITUTIONAL SALES PEP THERAPY Routine 10/22/2023 3:07 PM DIRECTOR OF INSTITUTIONAL SALES PEP THERAPY Routine 10/22/2023 3:07 PM DIRECTOR OF INSTITUTIONAL SALES POCT GLUCOSE DEVICE Routine 10/22/2023 12:49 PM DIRECTOR OF INSTITUTIONAL SALES POCT GLUCOSE DEVICE Routine 10/22/2023 8:12 AM DIRECTOR OF INSTITUTIONAL SALES XR CHEST 1 VIEW IP Routine 10/22/2023 6:38 AM DIRECTOR OF INSTITUTIONAL SALES EGFR Routine 10/22/2023 12:31 AM DIRECTOR OF INSTITUTIONAL SALES PROTIME-INR Routine 10/22/2023 12:31 AM DIRECTOR OF INSTITUTIONAL SALES CBC WITHOUT DIFFERENTIAL Routine 10/22/2023 12:31 AM DIRECTOR OF INSTITUTIONAL SALES MAGNESIUM Routine 10/22/2023 12:31 AM DIRECTOR OF INSTITUTIONAL SALES RENAL FUNCTION PANEL Routine 10/22/2023 12:31 AM DIRECTOR OF INSTITUTIONAL SALES CONTINUOUS CYCLIC PERITONEAL DIALYSIS (CCPD) Routine 10/22/2023 12:30 AM DIRECTOR OF INSTITUTIONAL SALES POCT GLUCOSE DEVICE Routine 10/21/2023 9:31 PM DIRECTOR OF INSTITUTIONAL SALES POCT GLUCOSE DEVICE Routine 10/21/2023 5:16 PM DIRECTOR OF INSTITUTIONAL SALES POCT GLUCOSE DEVICE Routine 10/21/2023 12:29 PM DIRECTOR OF INSTITUTIONAL SALES POCT GLUCOSE DEVICE Routine 10/21/2023 8:06 AM DIRECTOR OF INSTITUTIONAL SALES XR CHEST 1 VIEW IP Routine 10/21/2023 6:51 AM DIRECTOR OF INSTITUTIONAL SALES ECG 12-LEAD Routine 10/21/2023 4:39 AM DIRECTOR OF INSTITUTIONAL SALES EGFR Routine 10/21/2023 1:40 AM DIRECTOR OF INSTITUTIONAL SALES PROTIME-INR Routine 10/21/2023 1:40 AM DIRECTOR OF INSTITUTIONAL SALES CBC WITHOUT DIFFERENTIAL Routine 10/21/2023 1:40 AM DIRECTOR OF INSTITUTIONAL SALES MAGNESIUM Routine 10/21/2023 1:40 AM DIRECTOR OF INSTITUTIONAL SALES RENAL FUNCTION PANEL Routine 10/21/2023 1:40 AM DIRECTOR OF INSTITUTIONAL SALES CONTINUOUS CYCLIC PERITONEAL DIALYSIS (CCPD) Routine 10/21/2023 12:31 AM DIRECTOR OF INSTITUTIONAL SALES POCT GLUCOSE DEVICE Routine 10/20/2023 9:24 PM DIRECTOR OF INSTITUTIONAL SALES POCT GLUCOSE DEVICE Routine 10/20/2023 5:24 PM DIRECTOR OF INSTITUTIONAL SALES CONTINUOUS CYCLIC PERITONEAL DIALYSIS (CCPD) Routine 10/20/2023 3:51 PM DIRECTOR OF INSTITUTIONAL SALES CRITICAL CARE Routine 10/20/2023 12:45 PM DIRECTOR OF INSTITUTIONAL SALES 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 ([facility]/HCC) ([facility]) POCT GLUCOSE DEVICE Routine 10/20/2023 11:47 AM DIRECTOR OF INSTITUTIONAL SALES POCT GLUCOSE DEVICE Routine 10/20/2023 10:09 AM DIRECTOR OF INSTITUTIONAL SALES POCT GLUCOSE DEVICE Routine 10/20/2023 9:15 AM DIRECTOR OF INSTITUTIONAL SALES POCT GLUCOSE DEVICE Routine 10/20/2023 7:23 AM DIRECTOR OF INSTITUTIONAL SALES XR CHEST 1 VIEW IP Routine 10/20/2023 6:37 AM DIRECTOR OF INSTITUTIONAL SALES POCT GLUCOSE DEVICE Routine 10/20/2023 6:12 AM DIRECTOR OF INSTITUTIONAL SALES POCT GLUCOSE DEVICE Routine 10/20/2023 3:57 AM DIRECTOR OF INSTITUTIONAL SALES OXYHEMOGLOBIN, CENTRAL VENOUS Timed 10/20/2023 3:22 AM DIRECTOR OF INSTITUTIONAL SALES APTT STAT 10/20/2023 3:22 AM DIRECTOR OF INSTITUTIONAL SALES POCT GLUCOSE DEVICE Routine 10/20/2023 3:21 AM DIRECTOR OF INSTITUTIONAL SALES POCT GLUCOSE DEVICE Routine 10/20/2023 2:10 AM DIRECTOR OF INSTITUTIONAL SALES POCT GLUCOSE DEVICE Routine 10/20/2023 12:57 AM DIRECTOR OF INSTITUTIONAL SALES OXYHEMOGLOBIN, CENTRAL VENOUS Routine 10/20/2023 12:21 AM DIRECTOR OF INSTITUTIONAL SALES EGFR Routine 10/20/2023 12:21 AM DIRECTOR OF INSTITUTIONAL SALES CALCIUM, IONIZED Routine 10/20/2023 12:21 AM DIRECTOR OF INSTITUTIONAL SALES PROTIME-INR Routine 10/20/2023 12:21 AM DIRECTOR OF INSTITUTIONAL SALES CBC WITHOUT DIFFERENTIAL Routine 10/20/2023 12:21 AM DIRECTOR OF INSTITUTIONAL SALES MAGNESIUM Routine 10/20/2023 12:21 AM DIRECTOR OF INSTITUTIONAL SALES RENAL FUNCTION PANEL Routine 10/20/2023 12:21 AM DIRECTOR OF INSTITUTIONAL SALES POCT GLUCOSE DEVICE Routine 10/20/2023 12:20 AM DIRECTOR OF INSTITUTIONAL SALES POCT GLUCOSE DEVICE Routine 10/19/2023 11:03 PM DIRECTOR OF INSTITUTIONAL SALES POCT GLUCOSE DEVICE Routine 10/19/2023 10:01 PM DIRECTOR OF INSTITUTIONAL SALES APTT STAT 10/19/2023 9:47 PM DIRECTOR OF INSTITUTIONAL SALES POCT GLUCOSE DEVICE Routine 10/19/2023 9:15 PM DIRECTOR OF INSTITUTIONAL SALES POCT GLUCOSE DEVICE Routine 10/19/2023 8:12 PM DIRECTOR OF INSTITUTIONAL SALES POCT GLUCOSE DEVICE Routine 10/19/2023 6:13 PM DIRECTOR OF INSTITUTIONAL SALES POCT GLUCOSE DEVICE Routine 10/19/2023 5:24 PM DIRECTOR OF INSTITUTIONAL SALES XR CHEST 1 VIEW ED Urgent/IP Urgent 10/19/2023 4:29 PM DIRECTOR OF INSTITUTIONAL SALES POCT GLUCOSE DEVICE Routine 10/19/2023 4:25 PM DIRECTOR OF INSTITUTIONAL SALES ECG 12-LEAD STAT 10/19/2023 3:21 PM DIRECTOR OF INSTITUTIONAL SALES XR KUB IP Routine 10/19/2023 2:49 PM DIRECTOR OF INSTITUTIONAL SALES APTT STAT 10/19/2023 2:44 PM DIRECTOR OF INSTITUTIONAL SALES LIPASE Routine 10/19/2023 2:44 PM DIRECTOR OF INSTITUTIONAL SALES AMYLASE Routine 10/19/2023 2:44 PM DIRECTOR OF INSTITUTIONAL SALES HEPATIC FUNCTION PANEL Routine 10/19/2023 2:44 PM DIRECTOR OF INSTITUTIONAL SALES POCT GLUCOSE DEVICE Routine 10/19/2023 2:40 PM DIRECTOR OF INSTITUTIONAL SALES POCT GLUCOSE DEVICE Routine 10/19/2023 12:25 PM DIRECTOR OF INSTITUTIONAL SALES POCT GLUCOSE DEVICE Routine 10/19/2023 11:12 AM DIRECTOR OF INSTITUTIONAL SALES POCT GLUCOSE DEVICE Routine 10/19/2023 10:54 AM DIRECTOR OF INSTITUTIONAL SALES POCT GLUCOSE DEVICE Routine 10/19/2023 9:04 AM DIRECTOR OF INSTITUTIONAL SALES OXYHEMOGLOBIN, CENTRAL VENOUS STAT 10/19/2023 8:58 AM DIRECTOR OF INSTITUTIONAL SALES APTT STAT 10/19/2023 8:58 AM DIRECTOR OF INSTITUTIONAL SALES POCT GLUCOSE DEVICE Routine 10/19/2023 7:19 AM DIRECTOR OF INSTITUTIONAL SALES OXYHEMOGLOBIN, CENTRAL VENOUS STAT 10/19/2023 7:09 AM DIRECTOR OF INSTITUTIONAL SALES LACTATE STAT 10/19/2023 7:09 AM DIRECTOR OF INSTITUTIONAL SALES CRITICAL CARE Routine 10/19/2023 6:57 AM DIRECTOR OF INSTITUTIONAL SALES CAD in elim [place] artery POCT GLUCOSE DEVICE Routine 10/19/2023 6:57 AM DIRECTOR OF INSTITUTIONAL SALES XR CHEST 1 VIEW IP Routine 10/19/2023 6:27 AM DIRECTOR OF INSTITUTIONAL SALES POCT GLUCOSE DEVICE Routine 10/19/2023 6:06 AM DIRECTOR OF INSTITUTIONAL SALES POCT GLUCOSE DEVICE Routine 10/19/2023 5:10 AM DIRECTOR OF INSTITUTIONAL SALES APTT STAT 10/19/2023 4:14 AM DIRECTOR OF INSTITUTIONAL SALES POCT GLUCOSE DEVICE Routine 10/19/2023 4:03 AM DIRECTOR OF INSTITUTIONAL SALES POCT GLUCOSE DEVICE Routine 10/19/2023 2:56 AM DIRECTOR OF INSTITUTIONAL SALES OXYHEMOGLOBIN, CENTRAL VENOUS Routine 10/19/2023 2:11 AM DIRECTOR OF INSTITUTIONAL SALES EGFR Routine 10/19/2023 2:11 AM DIRECTOR OF INSTITUTIONAL SALES CALCIUM, IONIZED Routine 10/19/2023 2:11 AM DIRECTOR OF INSTITUTIONAL SALES PROTIME-INR Routine 10/19/2023 2:11 AM DIRECTOR OF INSTITUTIONAL SALES CBC WITHOUT DIFFERENTIAL Routine 10/19/2023 2:11 AM DIRECTOR OF INSTITUTIONAL SALES MAGNESIUM Routine 10/19/2023 2:11 AM DIRECTOR OF INSTITUTIONAL SALES BLOOD GAS, ARTERIAL Routine 10/19/2023 2:11 AM DIRECTOR OF INSTITUTIONAL SALES RENAL FUNCTION PANEL Routine 10/19/2023 2:11 AM DIRECTOR OF INSTITUTIONAL SALES POCT GLUCOSE DEVICE Routine 10/19/2023 2:07 AM DIRECTOR OF INSTITUTIONAL SALES CONTINUOUS CYCLIC PERITONEAL DIALYSIS (CCPD) Routine 10/19/2023 12:31 AM DIRECTOR OF INSTITUTIONAL SALES POCT GLUCOSE DEVICE Routine 10/19/2023 12:01 AM DIRECTOR OF INSTITUTIONAL SALES POCT GLUCOSE DEVICE Routine 10/18/2023 11:03 PM DIRECTOR OF INSTITUTIONAL SALES POCT GLUCOSE DEVICE Routine 10/18/2023 10:11 PM DIRECTOR OF INSTITUTIONAL SALES APTT STAT 10/18/2023 9:21 PM DIRECTOR OF INSTITUTIONAL SALES POCT GLUCOSE DEVICE Routine 10/18/2023 9:19 PM DIRECTOR OF INSTITUTIONAL SALES POCT GLUCOSE DEVICE Routine 10/18/2023 8:37 PM DIRECTOR OF INSTITUTIONAL SALES BLOOD GAS, ARTERIAL STAT 10/18/2023 8:34 PM DIRECTOR OF INSTITUTIONAL SALES CRITICAL CARE Routine 10/18/2023 6:49 PM DIRECTOR OF INSTITUTIONAL SALES CAD in [place] artery POCT GLUCOSE DEVICE Routine 10/18/2023 6:38 PM DIRECTOR OF INSTITUTIONAL SALES POCT GLUCOSE DEVICE Routine 10/18/2023 5:45 PM DIRECTOR OF INSTITUTIONAL SALES XR KUB IP Routine 10/18/2023 5:42 PM DIRECTOR OF INSTITUTIONAL SALES POCT GLUCOSE DEVICE Routine 10/18/2023 4:47 PM DIRECTOR OF INSTITUTIONAL SALES APTT Timed 10/18/2023 2:55 PM DIRECTOR OF INSTITUTIONAL SALES POCT GLUCOSE DEVICE Routine 10/18/2023 2:52 PM DIRECTOR OF INSTITUTIONAL SALES POCT GLUCOSE DEVICE Routine 10/18/2023 1:53 PM DIRECTOR OF INSTITUTIONAL SALES POCT GLUCOSE DEVICE Routine 10/18/2023 12:48 PM DIRECTOR OF INSTITUTIONAL SALES POCT GLUCOSE DEVICE Routine 10/18/2023 12:00 PM DIRECTOR OF INSTITUTIONAL SALES POCT GLUCOSE DEVICE Routine 10/18/2023 10:57 AM DIRECTOR OF INSTITUTIONAL SALES POCT GLUCOSE DEVICE Routine 10/18/2023 9:52 AM DIRECTOR OF INSTITUTIONAL SALES POCT GLUCOSE DEVICE Routine 10/18/2023 8:46 AM DIRECTOR OF INSTITUTIONAL SALES POCT GLUCOSE DEVICE Routine 10/18/2023 7:58 AM DIRECTOR OF INSTITUTIONAL SALES CRITICAL CARE Routine 10/18/2023 7:27 AM DIRECTOR OF INSTITUTIONAL SALES CAD in elim [place] artery POCT GLUCOSE DEVICE Routine 10/18/2023 7:02 AM DIRECTOR OF INSTITUTIONAL SALES POCT GLUCOSE DEVICE Routine 10/18/2023 6:04 AM DIRECTOR OF INSTITUTIONAL SALES XR CHEST 1 VIEW IP Routine 10/18/2023 5:38 AM DIRECTOR OF INSTITUTIONAL SALES POCT GLUCOSE DEVICE Routine 10/18/2023 5:04 AM DIRECTOR OF INSTITUTIONAL SALES POCT GLUCOSE DEVICE Routine 10/18/2023 4:03 AM DIRECTOR OF INSTITUTIONAL SALES POCT GLUCOSE DEVICE Routine 10/18/2023 3:04 AM DIRECTOR OF INSTITUTIONAL SALES POCT GLUCOSE DEVICE Routine 10/18/2023 1:57 AM DIRECTOR OF INSTITUTIONAL SALES EGFR Routine 10/18/2023 1:54 AM DIRECTOR OF INSTITUTIONAL SALES CALCIUM, IONIZED Routine 10/18/2023 1:54 AM DIRECTOR OF INSTITUTIONAL SALES PROTIME-INR Routine 10/18/2023 1:54 AM DIRECTOR OF INSTITUTIONAL SALES FIBRINOGEN Routine 10/18/2023 1:54 AM DIRECTOR OF INSTITUTIONAL SALES CBC WITHOUT DIFFERENTIAL Routine 10/18/2023 1:54 AM DIRECTOR OF INSTITUTIONAL SALES MAGNESIUM Routine 10/18/2023 1:54 AM DIRECTOR OF INSTITUTIONAL SALES BLOOD GAS, ARTERIAL STAT 10/18/2023 1:54 AM DIRECTOR OF INSTITUTIONAL SALES RENAL FUNCTION PANEL Routine 10/18/2023 1:54 AM DIRECTOR OF INSTITUTIONAL SALES POCT GLUCOSE DEVICE Routine 10/18/2023 12:57 AM DIRECTOR OF INSTITUTIONAL SALES CONTINUOUS CYCLIC PERITONEAL DIALYSIS (CCPD) Routine 10/18/2023 12:31 AM DIRECTOR OF INSTITUTIONAL SALES POCT GLUCOSE DEVICE Routine 10/18/2023 12:04 AM DIRECTOR OF INSTITUTIONAL SALES POCT GLUCOSE DEVICE Routine 10/17/2023 11:00 PM DIRECTOR OF INSTITUTIONAL SALES BLOOD GAS, ARTERIAL STAT 10/17/2023 10:56 PM DIRECTOR OF INSTITUTIONAL SALES LACTATE STAT 10/17/2023 10:55 PM DIRECTOR OF INSTITUTIONAL SALES DIFFERENTIAL AUTO STAT 10/17/2023 10:55 PM DIRECTOR OF INSTITUTIONAL SALES CALCIUM, IONIZED STAT 10/17/2023 10:55 PM DIRECTOR OF INSTITUTIONAL SALES CBC WITH AUTO DIFFERENTIAL STAT 10/17/2023 10:55 PM DIRECTOR OF INSTITUTIONAL SALES POCT GLUCOSE DEVICE Routine 10/17/2023 10:19 PM DIRECTOR OF INSTITUTIONAL SALES POCT GLUCOSE DEVICE Routine 10/17/2023 9:00 PM DIRECTOR OF INSTITUTIONAL SALES POCT GLUCOSE DEVICE Routine 10/17/2023 8:07 PM DIRECTOR OF INSTITUTIONAL SALES POCT GLUCOSE DEVICE Routine 10/17/2023 7:18 PM DIRECTOR OF INSTITUTIONAL SALES TRANSFUSE RED BLOOD CELLS Timed 10/17/2023 7:13 PM DIRECTOR OF INSTITUTIONAL SALES CRITICAL CARE Routine 10/17/2023 6:42 PM DIRECTOR OF INSTITUTIONAL SALES CAD in elim [place] artery PREPARE RBC STAT 10/17/2023 6:34 PM DIRECTOR OF INSTITUTIONAL SALES POTASSIUM LEVEL STAT 10/17/2023 6:14 PM DIRECTOR OF INSTITUTIONAL SALES APTT STAT 10/17/2023 6:12 PM DIRECTOR OF INSTITUTIONAL SALES PROTIME-INR STAT 10/17/2023 6:12 PM DIRECTOR OF INSTITUTIONAL SALES FIBRINOGEN STAT 10/17/2023 6:12 PM DIRECTOR OF INSTITUTIONAL SALES CBC WITHOUT DIFFERENTIAL STAT 10/17/2023 6:12 PM DIRECTOR OF INSTITUTIONAL SALES BLOOD GAS, ARTERIAL STAT 10/17/2023 6:12 PM DIRECTOR OF INSTITUTIONAL SALES POCT GLUCOSE DEVICE Routine 10/17/2023 6:11 PM DIRECTOR OF INSTITUTIONAL SALES TRANSFUSE PLASMA Timed 10/17/2023 5:25 PM DIRECTOR OF INSTITUTIONAL SALES PREPARE PLASMA STAT 10/17/2023 5:09 PM DIRECTOR OF INSTITUTIONAL SALES POCT GLUCOSE DEVICE Routine 10/17/2023 4:50 PM DIRECTOR OF INSTITUTIONAL SALES APTT STAT 10/17/2023 4:32 PM DIRECTOR OF INSTITUTIONAL SALES PROTIME-INR STAT 10/17/2023 4:32 PM DIRECTOR OF INSTITUTIONAL SALES FIBRINOGEN STAT 10/17/2023 4:32 PM DIRECTOR OF INSTITUTIONAL SALES CBC WITHOUT DIFFERENTIAL Routine 10/17/2023 4:32 PM DIRECTOR OF INSTITUTIONAL SALES BLOOD GAS, ARTERIAL STAT 10/17/2023 4:32 PM DIRECTOR OF INSTITUTIONAL SALES POCT GLUCOSE DEVICE Routine 10/17/2023 3:51 PM DIRECTOR OF INSTITUTIONAL SALES TRANSFUSE PLASMA Timed 10/17/2023 3:43 PM DIRECTOR OF INSTITUTIONAL SALES TRANSFUSE RED BLOOD CELLS Timed 10/17/2023 3:38 PM DIRECTOR OF INSTITUTIONAL SALES PREPARE PLASMA STAT 10/17/2023 3:32 PM DIRECTOR OF INSTITUTIONAL SALES PREPARE RBC STAT 10/17/2023 3:32 PM DIRECTOR OF INSTITUTIONAL SALES POCT GLUCOSE DEVICE Routine 10/17/2023 2:34 PM DIRECTOR OF INSTITUTIONAL SALES XR CHEST 1 VIEW ED Urgent/IP Urgent 10/17/2023 1:49 PM DIRECTOR OF INSTITUTIONAL SALES CRITICAL CARE Routine 10/17/2023 1:44 PM DIRECTOR OF INSTITUTIONAL SALES LACTATE STAT 10/17/2023 1:27 PM DIRECTOR OF INSTITUTIONAL SALES EGFR STAT 10/17/2023 1:27 PM DIRECTOR OF INSTITUTIONAL SALES CALCIUM, IONIZED STAT 10/17/2023 1:27 PM DIRECTOR OF INSTITUTIONAL SALES APTT STAT 10/17/2023 1:27 PM DIRECTOR OF INSTITUTIONAL SALES PROTIME-INR STAT 10/17/2023 1:27 PM DIRECTOR OF INSTITUTIONAL SALES FIBRINOGEN STAT 10/17/2023 1:27 PM DIRECTOR OF INSTITUTIONAL SALES CBC WITHOUT DIFFERENTIAL STAT 10/17/2023 1:27 PM DIRECTOR OF INSTITUTIONAL SALES PHOSPHORUS STAT 10/17/2023 1:27 PM DIRECTOR OF INSTITUTIONAL SALES MAGNESIUM STAT 10/17/2023 1:27 PM DIRECTOR OF INSTITUTIONAL SALES BLOOD GAS, ARTERIAL STAT 10/17/2023 1:27 PM DIRECTOR OF INSTITUTIONAL SALES BASIC METABOLIC PANEL STAT 10/17/2023 1:27 PM DIRECTOR OF INSTITUTIONAL SALES POCT GLUCOSE DEVICE Routine 10/17/2023 1:25 PM DIRECTOR OF INSTITUTIONAL SALES POCT ACTIVATED CLOTTING TIME, HIGH RANGE Routine 10/17/2023 12:26 PM DIRECTOR OF INSTITUTIONAL SALES POC BLOOD GAS AND CHEMISTRIES, ARTERIAL Routine 10/17/2023 12:26 PM DIRECTOR OF INSTITUTIONAL SALES TRANSFUSE PLATELETS Timed 10/17/2023 12:24 PM DIRECTOR OF INSTITUTIONAL SALES PREPARE RBC STAT 10/17/2023 12:11 PM DIRECTOR OF INSTITUTIONAL SALES TRANSFUSE RED BLOOD CELLS Timed 10/17/2023 12:09 PM DIRECTOR OF INSTITUTIONAL SALES TRANSFUSE CRYOPRECIPITATE (POOLED UNITS) Timed 10/17/2023 12:05 PM DIRECTOR OF INSTITUTIONAL SALES TRANSFUSE CRYOPRECIPITATE (POOLED UNITS) Timed 10/17/2023 12:04 PM DIRECTOR OF INSTITUTIONAL SALES TRANSFUSE PLASMA Timed 10/17/2023 12:03 PM DIRECTOR OF INSTITUTIONAL SALES TRANSFUSE PLASMA Timed 10/17/2023 12:03 PM DIRECTOR OF INSTITUTIONAL SALES POC BLOOD GAS AND CHEMISTRIES, ARTERIAL Routine 10/17/2023 11:51 AM DIRECTOR OF INSTITUTIONAL SALES POCT ACTIVATED CLOTTING TIME, HIGH RANGE Routine 10/17/2023 11:50 AM DIRECTOR OF INSTITUTIONAL SALES POCT ACTIVATED CLOTTING TIME, HIGH RANGE Routine 10/17/2023 11:22 AM DIRECTOR OF INSTITUTIONAL SALES POC BLOOD GAS AND CHEMISTRIES, ARTERIAL Routine 10/17/2023 11:20 AM DIRECTOR OF INSTITUTIONAL SALES POCT ACTIVATED CLOTTING TIME, HIGH RANGE Routine 10/17/2023 11:05 AM DIRECTOR OF INSTITUTIONAL SALES POCT ACTIVATED CLOTTING TIME, HIGH RANGE Routine 10/17/2023 10:53 AM DIRECTOR OF INSTITUTIONAL SALES POCT ACTIVATED CLOTTING TIME, HIGH RANGE Routine 10/17/2023 10:38 AM DIRECTOR OF INSTITUTIONAL SALES POC BLOOD GAS AND CHEMISTRIES, ARTERIAL Routine 10/17/2023 10:38 AM DIRECTOR OF INSTITUTIONAL SALES POCT ACTIVATED CLOTTING TIME, HIGH RANGE Routine 10/17/2023 10:24 AM DIRECTOR OF INSTITUTIONAL SALES POC BLOOD GAS AND CHEMISTRIES, VENOUS Routine 10/17/2023 10:21 AM DIRECTOR OF INSTITUTIONAL SALES POCT ACTIVATED CLOTTING TIME, HIGH RANGE Routine 10/17/2023 10:12 AM DIRECTOR OF INSTITUTIONAL SALES POC BLOOD GAS AND CHEMISTRIES, ARTERIAL Routine 10/17/2023 10:11 AM DIRECTOR OF INSTITUTIONAL SALES POC BLOOD GAS AND CHEMISTRIES, ARTERIAL Routine 10/17/2023 9:47 AM DIRECTOR OF INSTITUTIONAL SALES POCT ACTIVATED CLOTTING TIME, HIGH RANGE Routine 10/17/2023 9:44 AM DIRECTOR OF INSTITUTIONAL SALES PREPARE PLATELETS STAT 10/17/2023 9:12 AM DIRECTOR OF INSTITUTIONAL SALES PREPARE PLASMA STAT 10/17/2023 9:12 AM DIRECTOR OF INSTITUTIONAL SALES PREPARE CRYOPRECIPITATE (POOLED UNITS) STAT 10/17/2023 9:12 AM DIRECTOR OF INSTITUTIONAL SALES POCT ACTIVATED CLOTTING TIME, HIGH RANGE Routine 10/17/2023 8:19 AM DIRECTOR OF INSTITUTIONAL SALES REPLACEMENT AORTIC VALVE 10/17/2023 8:03 AM DIRECTOR OF INSTITUTIONAL SALES Aortic valve stenosis, etiology of cardiac valve disease unspecified Coronary arteriosclerosis in [place] artery CORONARY ARTERY BYPASS GRAFT 10/17/2023 8:03 AM DIRECTOR OF INSTITUTIONAL SALES Aortic valve stenosis, etiology of cardiac valve disease unspecified Coronary arteriosclerosis in [place] artery POCT GLUCOSE DEVICE Routine 10/17/2023 7:47 AM DIRECTOR OF INSTITUTIONAL SALES POCT GLUCOSE DEVICE Routine 10/17/2023 5:50 AM DIRECTOR OF INSTITUTIONAL SALES US CAROTIDS DUPLEX BILATERAL IP Routine 10/17/2023 5:10 AM DIRECTOR OF INSTITUTIONAL SALES POCT GLUCOSE DEVICE Routine 10/17/2023 2:29 AM DIRECTOR OF INSTITUTIONAL SALES POCT GLUCOSE DEVICE Routine 10/17/2023 12:51 AM DIRECTOR OF INSTITUTIONAL SALES CONTINUOUS CYCLIC PERITONEAL DIALYSIS (CCPD) Routine 10/17/2023 12:31 AM DIRECTOR OF INSTITUTIONAL SALES DIFFERENTIAL AUTO Routine 10/17/2023 12:29 AM DIRECTOR OF INSTITUTIONAL SALES CBC WITH AUTO DIFFERENTIAL Routine 10/17/2023 12:29 AM DIRECTOR OF INSTITUTIONAL SALES APTT Routine 10/17/2023 12:29 AM DIRECTOR OF INSTITUTIONAL SALES TYPE AND SCREEN STAT 10/16/2023 7:51 PM DIRECTOR OF INSTITUTIONAL SALES POCT GLUCOSE DEVICE Routine 10/16/2023 7:49 PM DIRECTOR OF INSTITUTIONAL SALES POCT GLUCOSE DEVICE Routine 10/16/2023 5:35 PM DIRECTOR OF INSTITUTIONAL SALES TRANSTHORACIC ECHO (TTE) COMPLETE W DOPPLER/CF W CONTRAST Routine 10/16/2023 4:47 PM DIRECTOR OF INSTITUTIONAL SALES APTT Routine 10/16/2023 3:50 PM DIRECTOR OF INSTITUTIONAL SALES LIPID PANEL Routine 10/16/2023 3:44 PM DIRECTOR OF INSTITUTIONAL SALES CONTINUOUS CYCLIC PERITONEAL DIALYSIS (CCPD) Routine 10/16/2023 3:33 PM DIRECTOR OF INSTITUTIONAL SALES HEMOGLOBIN A1C Routine 10/16/2023 3:27 PM DIRECTOR OF INSTITUTIONAL SALES XR CHEST PA LATERAL 2 VIEWS ED Urgent/IP Urgent 10/16/2023 3:12 PM DIRECTOR OF INSTITUTIONAL SALES ECG 12-LEAD Routine 10/16/2023 2:17 PM DIRECTOR OF INSTITUTIONAL SALES PREPARE RBC STAT 10/16/2023 2:04 PM DIRECTOR OF INSTITUTIONAL SALES POCT GLUCOSE DEVICE Routine 10/16/2023 12:22 PM DIRECTOR OF INSTITUTIONAL SALES POCT GLUCOSE DEVICE Routine 10/16/2023 8:11 AM DIRECTOR OF INSTITUTIONAL SALES POCT GLUCOSE DEVICE Routine 10/16/2023 4:48 AM DIRECTOR OF INSTITUTIONAL SALES POCT GLUCOSE DEVICE Routine 10/16/2023 12:37 AM DIRECTOR OF INSTITUTIONAL SALES DIFFERENTIAL AUTO Routine 10/16/2023 12:31 AM DIRECTOR OF INSTITUTIONAL SALES CBC WITH AUTO DIFFERENTIAL Routine 10/16/2023 12:31 AM DIRECTOR OF INSTITUTIONAL SALES APTT Routine 10/16/2023 12:31 AM DIRECTOR OF INSTITUTIONAL SALES B CHECK SAMPLE STAT 10/16/2023 12:27 AM DIRECTOR OF INSTITUTIONAL SALES POCT GLUCOSE DEVICE Routine 10/15/2023 11:20 PM DIRECTOR OF INSTITUTIONAL SALES POCT GLUCOSE DEVICE Routine 10/15/2023 11:01 PM DIRECTOR OF INSTITUTIONAL SALES POCT GLUCOSE DEVICE Routine 10/15/2023 10:45 PM DIRECTOR OF INSTITUTIONAL SALES POCT GLUCOSE DEVICE Routine 10/15/2023 10:26 PM DIRECTOR OF INSTITUTIONAL SALES POCT GLUCOSE DEVICE Routine 10/15/2023 8:12 PM DIRECTOR OF INSTITUTIONAL SALES POCT GLUCOSE DEVICE Routine 10/15/2023 5:10 PM DIRECTOR OF INSTITUTIONAL SALES POCT GLUCOSE DEVICE Routine 10/15/2023 12:13 PM DIRECTOR OF INSTITUTIONAL SALES APTT Routine 10/15/2023 11:25 AM DIRECTOR OF INSTITUTIONAL SALES CT CHEST WO CONTRAST IP Routine 10/15/2023 11:00 AM DIRECTOR OF INSTITUTIONAL SALES POCT GLUCOSE DEVICE Routine 10/15/2023 7:56 AM DIRECTOR OF INSTITUTIONAL SALES POCT GLUCOSE DEVICE Routine 10/15/2023 5:34 AM DIRECTOR OF INSTITUTIONAL SALES POCT GLUCOSE DEVICE Routine 10/15/2023 4:35 AM DIRECTOR OF INSTITUTIONAL SALES APTT STAT 10/15/2023 4:27 AM DIRECTOR OF INSTITUTIONAL SALES POCT GLUCOSE DEVICE Routine 10/15/2023 1:30 AM DIRECTOR OF INSTITUTIONAL SALES EGFR Routine 10/15/2023 1:06 AM DIRECTOR OF INSTITUTIONAL SALES DIFFERENTIAL AUTO Routine 10/15/2023 1:06 AM DIRECTOR OF INSTITUTIONAL SALES IRON PROFILE W/ IBC Routine 10/15/2023 1:06 AM DIRECTOR OF INSTITUTIONAL SALES CBC WITH AUTO DIFFERENTIAL Routine 10/15/2023 1:06 AM DIRECTOR OF INSTITUTIONAL SALES APTT Routine 10/15/2023 1:06 AM DIRECTOR OF INSTITUTIONAL SALES FERRITIN Routine 10/15/2023 1:06 AM DIRECTOR OF INSTITUTIONAL SALES RENAL FUNCTION PANEL Routine 10/15/2023 1:06 AM DIRECTOR OF INSTITUTIONAL SALES CONTINUOUS CYCLIC PERITONEAL DIALYSIS (CCPD) Routine 10/15/2023 12:31 AM DIRECTOR OF INSTITUTIONAL SALES APTT Timed 10/14/2023 8:41 PM DIRECTOR OF INSTITUTIONAL SALES POCT GLUCOSE DEVICE Routine 10/14/2023 8:24 PM DIRECTOR OF INSTITUTIONAL SALES POCT GLUCOSE DEVICE Routine 10/14/2023 5:28 PM DIRECTOR OF INSTITUTIONAL SALES CONTINUOUS CYCLIC PERITONEAL DIALYSIS (CCPD) Routine 10/14/2023 3:44 PM DIRECTOR OF INSTITUTIONAL SALES APTT Timed 10/14/2023 2:39 PM DIRECTOR OF INSTITUTIONAL SALES POCT GLUCOSE DEVICE Routine 10/14/2023 12:15 PM DIRECTOR OF INSTITUTIONAL SALES POCT GLUCOSE DEVICE Routine 10/14/2023 11:06 AM DIRECTOR OF INSTITUTIONAL SALES POCT GLUCOSE DEVICE Routine 10/14/2023 8:34 AM DIRECTOR OF INSTITUTIONAL SALES POCT GLUCOSE DEVICE Routine 10/14/2023 5:56 AM DIRECTOR OF INSTITUTIONAL SALES EGFR STAT 10/14/2023 5:53 AM DIRECTOR OF INSTITUTIONAL SALES APTT STAT 10/14/2023 5:53 AM DIRECTOR OF INSTITUTIONAL SALES BASIC METABOLIC PANEL STAT 10/14/2023 5:53 AM DIRECTOR OF INSTITUTIONAL SALES POCT GLUCOSE DEVICE Routine 10/14/2023 3:58 AM DIRECTOR OF INSTITUTIONAL SALES POCT GLUCOSE DEVICE Routine 10/14/2023 3:04 AM DIRECTOR OF INSTITUTIONAL SALES POCT GLUCOSE DEVICE Routine 10/14/2023 2:05 AM DIRECTOR OF INSTITUTIONAL SALES EGFR STAT 10/14/2023 1:04 AM DIRECTOR OF INSTITUTIONAL SALES DIFFERENTIAL AUTO STAT 10/14/2023 1:04 AM DIRECTOR OF INSTITUTIONAL SALES CBC WITH AUTO DIFFERENTIAL STAT 10/14/2023 1:04 AM DIRECTOR OF INSTITUTIONAL SALES APTT STAT 10/14/2023 1:04 AM DIRECTOR OF INSTITUTIONAL SALES PROTIME-INR STAT 10/14/2023 1:04 AM DIRECTOR OF INSTITUTIONAL SALES COMPREHENSIVE METABOLIC PANEL STAT 10/14/2023 1:04 AM DIRECTOR OF INSTITUTIONAL SALES POCT GLUCOSE DEVICE Routine 10/13/2023 11:25 PM DIRECTOR OF INSTITUTIONAL SALES documented in this encounter Results * (ABNORMAL) [...] POCT ORDERABLES - APRIL CE Final Result [facility] [address] Department [place] [address] * (ABNORMAL) Protime-INR (11/03/2023 11:43 AM CDT) PT 21.9(H) 10.3 - 13.7 sec INR 1.92(H) 0.90 - 1.20 [facility] Comment: Interpretive data Oral [...] ORDERABLES Final R esult Performing Organization Address [facility] Co de Phone Number [facility] [address] [facility] [employer] [place] [address] * (ABNORMAL) aPTT (11/03/2023 11:43 [...] BLOOD ORDERABLES Final Result Performing Organization Address [facility] Co de Phone Number [facility] [address] Department [employer] [place], [place] [id number] * (ABNORMAL) POCT glucose (11/03/2023 11:38 AM [...] APRIL CE Final Result Performing Organization Address [facility] Co de Phone Number [facility] [address] [facility] [employer] [place], [place] [id number] * (ABNORMAL) POCT glucose (11/03/2023 8:05 AM [...] CE Final Result [facility] [address] Department [place] [address] * eGFR (11/03/2023 4:41 AM CDT) eGFR [...] CDT 11/03/2023 4:41 AM CDT Byron Olvera [employer] WORK[employer] APPRENTICE LAB BLOOD ORDERABLES Fi nal Result Performing Organization Address [facility] Co de Phone Number [facility] [address] [facility] [employer] [place] [address] * (ABNORMAL) aPTT (11/03/2023 4:41 AM CDT) [...] BLOOD ORDERABLES Final Result Performing Organization Address [facility] Co de Phone Number [facility] [address] [facility] [employer] [place] [address] * (ABNORMAL) Protime-INR (11/03/2023 4:41 AM CDT) PT 19.8(H) 10.3 - 13.7 sec INR 1.74(H) 0.90 - 1.20 [facility] Comment: Interpretive data Oral anticoagulant [...] ORDERABLES Fi nal Result Performing Organization Address [facility] Co de Phone Number [facility] [address] [facility] [place] [address] * Magnesium (11/03/2023 4:41 AM CDT) Magnesium 2.4 1.4 - 2.5 mg/dL Blood 11/03/2023 4:41 AM CDT 11/03/2023 4:41 AM CDT Byron Olvera [employer] BLOOD ORDERABLES nal Result [facility] [address] Department [place] [address] * (ABNORMAL) Renal function panel (11/03/2023 4:41 AM CDT) Pathologist [facility] Sodium 132(L) 135 - 145 mmol/L Potassium, pl 3.7 3.3 - 4.9 mmol/L [facility] Chloride 92(L) 97 - 110 mmol/L [facility] CO2 27 22 - 32 mmol/L [facility] Anion gap 13 2 - 15 mmol/L [facility] BUN 79(H) 6 - 25 mg/dL [facility] Creatinine 8.23(H) 0.80 - 1.30 mg/dL [facility] Glucose 252(H) 70 - 199 mg/dL [facility] Comment: Interpretive Data Fasting glucose [...] 2022. Calcium 8.9 8.5 - 10.3 mg/dL [facility] Phosphorus, pl 4.2 2.3 - 4.5 mg/dL [facility] Albumin 2.9(L) 3.5 - 5.0 g/dL [facility] Blood 11/03/2023 4:41 AM CDT 11/03/2023 4:41 AM CDT Byron Olvera NP LAB BLOOD ORDERABLES Fi nal Result Performing Organization Address [facility] Co de Phone Number [facility] [address] Department [employer] [place] [address] * (ABNORMAL) CBC without differential (11/03/2023 4:41 AM CDT) [facility] WBC 4.8 3.8 - 9.9 K/cumm Hgb 7.6(L) 13.0 - 17.5 g/dL [facility] Hct 24.4(L) 38.9 - 50.3 % [facility] Plt 389 150 - 400 K/cumm [facility] MPV 9.2 9.1 - 12.3 fL [facility] RBC 2.61(L) 4.30 - 5.80 M/cumm [facility] MCV 93.5 81.3 - 96.4 fL [facility] MCH 29.1 27.1 - 33.3 pg [facility] MCHC 31.1(L) 32.3 - 35.7 g/dL [facility] RDW CV 14.6 11.1 - 14.9 % [facility] RDW SD 50.1(H) 35.7 - 48.1 fL [facility] NRBC abs 0.00 0.00 - 0.01 K/cumm [facility] Blood 11/03/2023 4:41 AM CDT 11/03/2023 4:41 AM CDT Byron Olvera NP LAB BLOOD ORDERABLES Fi nal Result Performing Organization Address City/[facility]/ZIP Co de Phone Number [facility] [address] Department [employer] [place], [place] [id number] * aPTT (11/02/2023 8:38 PM CDT) Pathologist [facility] aPTT 38 28 - 38 sec Comment: Interpretive Data Heparin therapeutic range: 66.0 - 100.0 seconds. Range based on correlation with therapeutic heparin activity range of 0.3 - 0.7 Units/mL. Current interpretive data was last revised on 2023. Blood 11/02/2023 8:38 PM CDT 11/02/2023 8:38 PM CDT Nona GRACE LAB BLOOD ORDERABLES Fin al Result Performing Organization Address [facility] Co de Phone Number [facility] [address] Department [place] [address] * (ABNORMAL) POCT glucose (11/02/2023 8:22 PM [...] APRIL CE Final Result Performing Organization Address [facility] de Phone Number [facility] [address] Department [employer] [place] [address] * (ABNORMAL) POCT glucose (11/02/2023 5:22 PM [...] APRIL CE Final Result Performing Organization Address [facility]/ZIP Co de Phone Number [facility] [address] Department [employer] [place] [address] * aPTT (11/02/2023 1:17 PM CDT) aPTT 36 28 - 38 sec Comment: Interpretive Data Heparin therapeutic range: 66.0 - 100.0 seconds. Range based on correlation with therapeutic heparin activity range of 0.3 - 0.7 Units/mL. Current interpretive data was last revised on 2023. Blood 11/02/2023 1:17 PM CDT 11/02/2023 1:33 PM CDT Narrative [facility] - 11/02/2023 1:50 PM CDT Baseline prior to heparin initiation Nona GRACE LAB BLOOD ORDERABLES Fin al Result Performing Organization Address [facility] Co de Phone Number [facility] [address] Department [employer] [place] [address] * (ABNORMAL) POCT glucose (11/02/2023 12:27 PM [...] APRIL CE Final Result Performing Organization Address [facility] Co de Phone Number [facility] [address] Department [employer] [place], [place] [id number] * (ABNORMAL) POCT glucose (11/02/2023 8:15 AM [...] CE Final Result [facility] [address] Department [place] [address] * eGFR (11/02/2023 2:16 AM CDT) eGFR [...] CDT 11/02/2023 2:37 AM CDT Byron Olvera BENCH WORKER APPRENTICE LAB BLOOD ORDERABLES Fi nal Result [facility] [address] [facility] [employer] [place] [address] * (ABNORMAL) Protime-INR (11/02/2023 2:16 AM CDT) PT 19.1(H) 10.3 - 13.7 sec INR 1.68(H) 0.90 - 1.20 [facility] Comment: Interpretive data Oral anticoagulant therapeutic ranges: Venous thromboembolism prophylaxis or treatment: 2.0-3.0 CARDIOLOGY Standard range: 2.0-3.0 High-intensity range: 2.5-3.5 Refer to indication-specific guidelines for appropriate target ranges for prosthetic heart valve replacement. Current interpretive data was last revised on 2019. Blood 11/02/2023 2:16 AM CDT 11/02/2023 2:37 AM CDT Byron Olvera BENCH WORKER APPRENTICE LAB BLOOD ORDERABLES Fi nal Result [facility] [address] [employer] [place], [place] [id number] * Magnesium (11/02/2023 2:16 AM CDT) Pathologist [facility] Magnesium 2.4 1.4 - 2.5 mg/dL Blood 11/02/2023 2:16 AM CDT 11/02/2023 2:37 AM CDT Byron Olvera BENCH WORKER APPRENTICE LAB BLOOD ORDERABLES Fi nal Result [facility] [address] [facility] [employer] [place] [address] * (ABNORMAL) Renal function panel (11/02/2023 2:16 AM CDT) Pathologist [facility] Sodium 128(L) 135 - 145 mmol/L Potassium, pl 3.9 3.3 - 4.9 mmol/L [facility] Chloride 89(L) 97 - 110 mmol/L [facility] CO2 25 22 - 32 mmol/L [facility] Anion gap 14 2 - 15 mmol/L [facility] BUN 86(H) 6 - 25 mg/dL [facility] Creatinine 8.74(H) 0.80 - 1.30 mg/dL [facility] Glucose 353(H) 70 - 199 mg/dL [facility] Comment: Interpretive Data Fasting glucose [...] 2022. Calcium 9.3 8.5 - 10.3 mg/dL [facility] Phosphorus, pl 3.7 2.3 - 4.5 mg/dL [facility] Albumin 2.7(L) 3.5 - 5.0 g/dL [facility] Blood 11/02/2023 2:16 AM CDT 11/02/2023 2:37 AM CDT Byron Olvera NP LAB BLOOD ORDERABLES Fi nal Result [facility] [address] Department [place] [address] * (ABNORMAL) CBC without differential (11/02/2023 2:16 AM CDT) [facility] WBC 5.0 3.8 - 9.9 K/cumm Hgb 7.5(L) 13.0 - 17.5 g/dL [facility] Hct 24.5(L) 38.9 - 50.3 % [facility] Plt 391 150 - 400 K/cumm [facility] MPV 9.3 9.1 - 12.3 fL [facility] RBC 2.60(L) 4.30 - 5.80 M/cumm [facility] MCV 94.2 81.3 - 96.4 fL [facility] MCH 28.8 27.1 - 33.3 pg [facility] MCHC 30.6(L) 32.3 - 35.7 g/dL [facility] RDW CV 14.6 11.1 - 14.9 % [facility] RDW SD 50.4(H) 35.7 - 48.1 fL [facility] NRBC abs 0.00 0.00 - 0.01 K/cumm [facility] Blood 11/02/2023 2:16 AM CDT 11/02/2023 2:37 AM CDT Byron Olvera NP LAB BLOOD ORDERABLES Fi nal Result Performing Organization Address [facility]/ZIP Co de Phone Number [facility] [address] [employer] [place], [place] [id number] * (ABNORMAL) POCT glucose (11/02/2023 2:06 AM [...] APRIL CE Final Result Performing Organization Address City/[facility]/ZIP Co de Phone Number [facility] [address] Department [employer] [place], [place] [phone] * (ABNORMAL) POCT glucose (11/01/2023 8:25 PM [...] APRIL CE Final Result Performing Organization Address [facility] de Phone Number [facility] [address] [facility] [employer] [place] [address] * (ABNORMAL) POCT glucose (11/01/2023 5:17 PM [...] APRIL CE Final Result Performing Organization Address [facility] de Phone Number [facility] [address] [facility] [employer] [place] [address] * (ABNORMAL) POCT glucose (11/01/2023 12:01 PM [...] APRIL CE Final Result Performing Organization Address [facility] de Phone Number [facility] [address] Department [place] [address] * (ABNORMAL) POCT glucose (11/01/2023 8:27 AM CDT) Pathologist [facility] Glucose, POC 246(H) 70 - 140 mg/dL Comment: For Glucose values <35 mg/dl when Hematocrit is >60 mg/dl,the test may not accurately detect significant hypoglycemia,and testing in the Laboratory should be considered if clinically indicated. Blood 11/01/2023 8:27 AM CDT 11/01/2023 8:27 AM CDT us Jaqueline Valero MD LAB POCT ORDERABLES - APRIL CE Final Result [facility] [address] Department [place] [address] * eGFR (11/01/2023 2:09 AM CDT) [facility] eGFR 6 mL/min/1. 73 m2 Comment: [...] ORDERABLES Fi nal Result Performing Organization Address [facility] Co de Phone Number [facility] [address] Department [employer] [place] [address] * (ABNORMAL) Protime-INR (11/01/2023 2:09 AM CDT) PT 20.6(H) 10.3 - 13.7 sec INR 1.81(H) 0.90 - 1.20 [facility] Comment: Interpretive data Oral anticoagulant [...] ORDERABLES Fi nal Result Performing Organization Address [facility] Co de Phone Number [facility] [address] [place] [address] * Magnesium (11/01/2023 2:09 AM CDT) Magnesium 2.5 1.4 - 2.5 mg/dL Blood 11/01/2023 2:09 AM CDT 11/01/2023 2:21 AM CDT Byron Olvera BENCH WORKER APPRENTICE LAB BLOOD ORDERABLES Fi nal Result Performing Organization Address [facility]/State/ZIP Co de Phone Number [facility] [address] Department [place] [address] * (ABNORMAL) Renal function panel (11/01/2023 2:09 AM CDT) Sodium 131(L) 135 - 145 mmol/L Potassium, pl 4.0 3.3 - 4.9 mmol/L [facility] Chloride 91(L) 97 - 110 mmol/L [facility] CO2 25 22 - 32 mmol/L [facility] Anion gap 15 2 - 15 mmol/L [facility] BUN 89(H) 6 - 25 mg/dL [facility] Creatinine 8.97(H) 0.80 - 1.30 mg/dL [facility] Glucose 302(H) 70 - 199 mg/dL [facility] Comment: Interpretive Data Fasting glucose [...] 2022. Calcium 9.1 8.5 - 10.3 mg/dL [facility] Phosphorus, pl 4.1 2.3 - 4.5 mg/dL [facility] Albumin 2.9(L) 3.5 - 5.0 g/dL [facility] Blood 11/01/2023 2:09 AM CDT 11/01/2023 2:21 AM CDT Byron Olvera NP LAB BLOOD ORDERABLES Fi nal Result [facility] [address] Department [place] [address] * (ABNORMAL) CBC without differential (11/01/2023 2:09 AM CDT) [facility] WBC 5.9 3.8 - 9.9 K/cumm Hgb 7.7(L) 13.0 - 17.5 g/dL [facility] Hct 25.0(L) 38.9 - 50.3 % [facility] Plt 381 150 - 400 K/cumm [facility] MPV 9.2 9.1 - 12.3 fL [facility] RBC 2.65(L) 4.30 - 5.80 M/cumm [facility] MCV 94.3 81.3 - 96.4 fL [facility] MCH 29.1 27.1 - 33.3 pg [facility] MCHC 30.8(L) 32.3 - 35.7 g/dL [facility] RDW CV 14.8 11.1 - 14.9 % [facility] RDW SD 50.6(H) 35.7 - 48.1 fL [facility] NRBC abs 0.00 0.00 - 0.01 K/cumm [facility] Blood 11/01/2023 2:09 AM CDT 11/01/2023 2:21 AM CDT us Byron Olvera BENCH WORKER APPRENTICE LAB BLOOD ORDERABLES Fi nal Result Performing Organization Address City/[facility]/ZIP Co de Phone Number [facility] [address] [employer] [place], [place] [id number] * Vancomycin level random (11/01/2023 2:09 AM CDT) [facility] Vancomycin random 17.3 mcg/mL Comment: Interpretive Data No reference ranges have been established for random drug levels. Current Interpretive Data was last revised on 2020. Blood 11/01/2023 2:09 AM CDT 11/01/2023 2:21 AM CDT Guerline Rodriguez PA LAB BLOOD ORDERABLES Final R esult [facility] [address] Department [employer] [place], [place] [id number] * (ABNORMAL) POCT glucose (11/01/2023 2:05 AM [...] APRIL CE Final Result Performing Organization Address [facility] de Phone Number [facility] [address] [facility] [employer] [place] [address] * (ABNORMAL) POCT glucose (10/31/2023 9:21 PM [...] APRIL CE Final Result Performing Organization Address [facility] de Phone Number [facility] [address] [facility] [employer] [place] [address] * (ABNORMAL) POCT glucose (10/31/2023 5:12 PM [...] APRIL CE Final Result Performing Organization Address [facility] Co de Phone Number [facility] [address] [facility] [employer] [place] [address] * (ABNORMAL) POCT glucose (10/31/2023 12:02 PM [...] APRIL CE Final Result Performing Organization Address [facility] Co de Phone Number [facility] [address] [facility] [employer] [place] [address] * (ABNORMAL) POCT glucose (10/31/2023 12:01 PM [...] APRIL CE Final Result Performing Organization Address [facility] Co de Phone Number [facility] [address] Department [employer] [place] [address] * (ABNORMAL) POCT glucose (10/31/2023 8:06 AM CDT) [facility] Glucose, POC 338(H) 70 - 140 mg/dL Comment: For Glucose values <35 mg/dl when Hematocrit is >60 mg/dl,the test may not accurately detect significant hypoglycemia,and testing in the Laboratory should be considered if clinically indicated. Blood 10/31/2023 8:06 AM CDT 10/31/2023 8:06 AM CDT us Jaqueline Valero MD LAB POCT ORDERABLES - APRIL CE Final Result [facility] [address] Department [place] [address] * eGFR (10/31/2023 2:25 AM CDT) [facility] eGFR 6 mL/min/1. 73 m2 Comment: [...] CDT 10/31/2023 2:35 AM CDT Byron Olvera BENCH WORKER APPRENTICE LAB BLOOD ORDERABLES Fi nal Result Performing Organization Address City/[facility] Co de Phone Number [facility] [address] [facility] [employer] [place] [address] * (ABNORMAL) Protime-INR (10/31/2023 2:25 AM CDT) PT 20.6(H) 10.3 - 13.7 sec INR 1.81(H) 0.90 - 1.20 [facility] Comment: Interpretive data Oral anticoagulant therapeutic ranges: Venous thromboembolism prophylaxis or treatment: 2.0-3.0 CARDIOLOGY Standard range: 2.0-3.0 High-intensity range: 2.5-3.5 Refer to indication-specific guidelines for appropriate target ranges for prosthetic heart valve replacement. Current interpretive data was last revised on 2019. Blood 10/31/2023 2:25 AM CDT 10/31/2023 2:34 AM CDT Byron Olvera BENCH WORKER APPRENTICE LAB BLOOD ORDERABLES Fi nal Result Performing Organization Address [facility] Co de Phone Number [facility] [address] [facility] [employer] [place] [address] * Magnesium (10/31/2023 2:25 AM CDT) Pathologist [facility] Magnesium 2.5 1.4 - 2.5 mg/dL Blood 10/31/2023 2:25 AM CDT 10/31/2023 2:35 AM CDT Byron Olvera BENCH WORKER APPRENTICE LAB BLOOD ORDERABLES Fi nal Result Performing Organization Address [facility] Co de Phone Number [facility] [address] Department [employer] [place] [address] * (ABNORMAL) Renal function panel (10/31/2023 2:25 AM CDT) [facility] Sodium 131(L) 135 - 145 mmol/L Potassium, pl 4.0 3.3 - 4.9 mmol/L [facility] Chloride 91(L) 97 - 110 mmol/L [facility] CO2 24 22 - 32 mmol/L [facility] Anion gap 16(H) 2 - 15 mmol/L [facility] BUN 90(H) 6 - 25 mg/dL [facility] Creatinine 9.34(H) 0.80 - 1.30 mg/dL [facility] Glucose 275(H) 70 - 199 mg/dL [facility] Comment: Interpretive Data Fasting glucose [...] 2022. Calcium 9.5 8.5 - 10.3 mg/dL [facility] Phosphorus, pl 4.8(H) 2.3 - 4.5 mg/dL [facility] Albumin 2.7(L) 3.5 - 5.0 g/dL [facility] Blood 10/31/2023 2:25 AM CDT 10/31/2023 2:35 AM CDT Byron Olvera NP LAB BLOOD ORDERABLES Fi nal Result [facility] [address] Department [place] [address] * (ABNORMAL) CBC without differential (10/31/2023 2:25 AM CDT) [facility] WBC 6.6 3.8 - 9.9 K/cumm Hgb 7.9(L) 13.0 - 17.5 g/dL [facility] Hct 25.5(L) 38.9 - 50.3 % [facility] Plt 366 150 - 400 K/cumm [facility] MPV 9.3 9.1 - 12.3 fL [facility] RBC 2.70(L) 4.30 - 5.80 M/cumm [facility] MCV 94.4 81.3 - 96.4 fL [facility] MCH 29.3 27.1 - 33.3 pg [facility] MCHC 31.0(L) 32.3 - 35.7 g/dL [facility] RDW CV 15.1(H) 11.1 - 14.9 % [facility] RDW SD 52.3(H) 35.7 - 48.1 fL [facility] NRBC abs 0.00 0.00 - 0.01 K/cumm [facility] Blood 10/31/2023 2:25 AM CDT 10/31/2023 2:34 AM CDT us Byron Olvera NP LAB BLOOD ORDERABLES Fi nal Result Performing Organization Address City/[facility]/ZIP Co de Phone Number [facility] [address] [place] [employer] [address] * (ABNORMAL) POCT glucose (10/30/2023 9:39 PM CDT) [facility] Glucose, POC 238(H) 70 - 140 mg/dL Comment: For Glucose values <35 mg/dl when Hematocrit is >60 mg/dl,the test may not accurately detect significant hypoglycemia,and testing in the Laboratory should be considered if clinically indicated. Blood 10/30/2023 9:39 PM CDT 10/30/2023 9:39 PM CDT Jaqueline Valero MD LAB POCT ORDERABLES - APRIL CE Final Result [facility] [address] Department [employer] [place] [address] * (ABNORMAL) POCT glucose (10/30/2023 5:31 PM [...] APRIL CE Final Result Performing Organization Address [facility] de Phone Number [facility] [address] [facility] [employer] [place] [address] * (ABNORMAL) POCT glucose (10/30/2023 12:17 PM CDT) Glucose, POC 230(H) 70 - 140 mg/dL Comment: For Glucose values <35 mg/dl when Hematocrit is >60 mg/dl,the test may not accurately detect significant hypoglycemia,and testing in the Laboratory should be considered if clinically indicated. Blood 10/30/2023 12:1 7 PM CDT 10/30/2023 12:17 PM CDT Result [facility] Jaqueline Valero MD LAB POCT ORDERABLES - APRIL CE Final Result Performing Organization Address [facility] Co de Phone Number [facility] [address] [facility] [employer] [place] [address] * (ABNORMAL) POCT glucose (10/30/2023 6:20 AM [...] APRIL CE Final Result Performing Organization Address City/[facility]/ZIP Co de Phone Number [facility] [address] [employer] [place], [place] [phone] * eGFR (10/30/2023 4:18 AM CDT) eGFR [...] 10/30/2023 4:45 AM CDT us Byron Olvera BENCH WORKER APPRENTICE LAB BLOOD ORDERABLES Fi nal Result [facility] [address] Department [employer] [place], [place] [id number] * (ABNORMAL) Protime-INR (10/30/2023 4:18 AM CDT) [facility] PT 22.8(H) 10.3 - 13.7 sec INR 2.00(H) 0.90 - 1.20 [facility] Comment: Interpretive data Oral anticoagulant therapeutic ranges: Venous thromboembolism prophylaxis or treatment: 2.0-3.0 CARDIOLOGY Standard range: 2.0-3.0 High-intensity range: 2.5-3.5 Refer to indication-specific guidelines for appropriate target ranges for prosthetic heart valve replacement. Current interpretive data was last revised on 2019. Blood 10/30/2023 4:18 AM CDT 10/30/2023 4:46 AM CDT Byron Olvera BENCH WORKER APPRENTICE LAB BLOOD ORDERABLES Fi nal Result Performing Organization Address [facility] Co de Phone Number [facility] [address] [facility] [employer] [place] [address] * Magnesium (10/30/2023 4:18 AM CDT) [facility] Magnesium 2.4 1.4 - 2.5 mg/dL Blood 10/30/2023 4:18 AM CDT 10/30/2023 4:45 AM CDT Byron Olvera NP LAB BLOOD ORDERABLES Fi nal Result Performing Organization Address City/[facility] Co de Phone Number [facility] [address] [facility] [employer] [place] [address] * (ABNORMAL) Renal function panel (10/30/2023 4:18 AM CDT) [facility] Sodium 132(L) 135 - 145 mmol/L Potassium, pl 4.0 3.3 - 4.9 mmol/L [facility] Chloride 89(L) 97 - 110 mmol/L [facility] CO2 25 22 - 32 mmol/L [facility] Anion gap 18(H) 2 - 15 mmol/L [facility] BUN 93(H) 6 - 25 mg/dL [facility] Creatinine 9.55(H) 0.80 - 1.30 mg/dL [facility] Glucose 292(H) 70 - 199 mg/dL [facility] Comment: Interpretive Data Fasting glucose [...] 2022. Calcium 9.3 8.5 - 10.3 mg/dL [facility] Phosphorus, pl 5.4(H) 2.3 - 4.5 mg/dL [facility] Albumin 2.7(L) 3.5 - 5.0 g/dL [facility] Blood 10/30/2023 4:18 AM CDT 10/30/2023 4:45 AM CDT us Byron Olvera NP LAB BLOOD ORDERABLES nal Result [facility] [address] Department [place] [address] * (ABNORMAL) CBC without differential (10/30/2023 4:18 AM CDT) WBC 6.5 3.8 - 9.9 K/cumm Hgb 7.6(L) 13.0 - 17.5 g/dL [facility] Hct 24.3(L) 38.9 - 50.3 % [facility] Plt 317 150 - 400 K/cumm [facility] MPV 9.8 9.1 - 12.3 fL [facility] RBC 2.59(L) 4.30 - 5.80 M/cumm [facility] MCV 93.8 81.3 - 96.4 fL [facility] MCH 29.3 27.1 - 33.3 pg [facility] MCHC 31.3(L) 32.3 - 35.7 g/dL [facility] RDW CV 15.1(H) 11.1 - 14.9 % [facility] RDW SD 52.2(H) 35.7 - 48.1 fL [facility] NRBC abs 0.00 0.00 - 0.01 K/cumm [facility] Blood 10/30/2023 4:18 AM CDT 10/30/2023 4:45 AM CDT us Byron Olvera BENCH WORKER APPRENTICE LAB BLOOD ORDERABLES Fi nal Result Performing Organization Address City/[facility]/ZIP Co de Phone Number [facility] [address] Department [employer] [place] [place], [place] [id number] * (ABNORMAL) POCT glucose (10/29/2023 9:59 PM [...] APRIL CE Final Result Performing Organization Address City/[facility]/ZIP Co de Phone Number [facility] [address] Department [employer] [place] [address] * (ABNORMAL) POCT glucose (10/29/2023 5:41 PM [...] CE Final Result [facility] [address] Department [place] [address] * US Vein Duplex Lower Extremity Bilateral [...] ORDERABLES - APRIL CE Final Result [facility] [address] Department [place] [address] * (ABNORMAL) POCT glucose (10/29/2023 [...] APRIL CE Final Result Performing Organization Address [facility] Co de Phone Number [facility] [address] Department [place] [address] * eGFR (10/29/2023 4:04 AM CDT) Pathologist [facility] eGFR 6 mL/min/1. 73 m2 Comment: Interpretive [...] ORDERABLES Fi nal Result Performing Organization Address City/[facility]/ZIP Co de Phone Number [facility] [address] Department [employer] [place] [address] * (ABNORMAL) Protime-INR (10/29/2023 4:04 AM CDT) [facility] PT 26.9(H) 10.3 - 13.7 sec INR 2.36(H) 0.90 - 1.20 [facility] Comment: Interpretive data Oral anticoagulant [...] ORDERABLES Fi nal Result Performing Organization Address [facility] Co de Phone Number [facility] [address] [facility] [employer] [place] [address] * Magnesium (10/29/2023 4:04 AM CDT) [facility] Magnesium 2.4 1.4 - 2.5 mg/dL Blood 10/29/2023 4:04 AM CDT 10/29/2023 4:10 AM CDT Byron Olvera NP LAB BLOOD ORDERABLES Fi nal Result Performing Organization Address [facility] Co de Phone Number [facility] [address] [facility] [employer] [place] [address] * (ABNORMAL) Renal function panel (10/29/2023 4:04 AM CDT) [facility] Sodium 129(L) 135 - 145 mmol/L Potassium, pl 4.1 3.3 - 4.9 mmol/L [facility] Chloride 87(L) 97 - 110 mmol/L [facility] CO2 23 22 - 32 mmol/L [facility] Anion gap 19(H) 2 - 15 mmol/L [facility] BUN 85(H) 6 - 25 mg/dL [facility] Creatinine 9.66(H) 0.80 - 1.30 mg/dL [facility] Glucose 297(H) 70 - 199 mg/dL [facility] Comment: Interpretive Data Fasting glucose [...] 2022. Calcium 9.5 8.5 - 10.3 mg/dL [facility] Phosphorus, pl 5.8(H) 2.3 - 4.5 mg/dL [facility] Albumin 2.9(L) 3.5 - 5.0 g/dL [facility] Blood 10/29/2023 4:04 AM CDT 10/29/2023 4:10 AM CDT us Byron Olvera NP LAB BLOOD ORDERABLES Fi nal Result [facility] [address] Department [place] [address] * (ABNORMAL) CBC without differential (10/29/2023 4:04 AM CDT) WBC 7.0 3.8 - 9.9 K/cumm Hgb 7.9(L) 13.0 - 17.5 g/dL [facility] Hct 25.2(L) 38.9 - 50.3 % [facility] Plt 291 150 - 400 K/cumm [facility] MPV 10.0 9.1 - 12.3 fL [facility] RBC 2.70(L) 4.30 - 5.80 M/cumm [facility] MCV 93.3 81.3 - 96.4 fL [facility] MCH 29.3 27.1 - 33.3 pg [facility] MCHC 31.3(L) 32.3 - 35.7 g/dL [facility] RDW CV 15.4(H) 11.1 - 14.9 % [facility] RDW SD 52.0(H) 35.7 - 48.1 fL [facility] NRBC abs 0.00 0.00 - 0.01 K/cumm [facility] Blood 10/29/2023 4:04 AM CDT 10/29/2023 4:11 AM CDT Byron Olvera NP LAB BLOOD ORDERABLES Fi nal Result Performing Organization Address [facility] Co de Phone Number [facility] [address] [place] [address] * (ABNORMAL) POCT glucose (10/28/2023 8:22 PM DIRECTOR OF INSTITUTIONAL SALES) Glucose, POC 195(H) 70 - 140 mg/dL Comment: For Glucose values <35 mg/dl when Hematocrit is >60 mg/dl,the test may not accurately detect significant hypoglycemia,and testing in the Laboratory should be considered if clinically indicated. Blood 10/28/2023 8:22 PM DIRECTOR OF INSTITUTIONAL SALES 10/28/2023 8:22 PM DIRECTOR OF INSTITUTIONAL SALES Jaqueline Valero MD LAB POCT ORDERABLES - APRIL CE Final Result Performing Organization Address City/[facility]/ZIP Co de Phone Number [facility] [address] [employer] [place], [place] [id number] * (ABNORMAL) POCT glucose (10/28/2023 5:24 PM DIRECTOR OF INSTITUTIONAL SALES) Glucose, POC 222(H) 70 - 140 mg/dL Comment: For Glucose values <35 mg/dl when Hematocrit is >60 mg/dl,the test may not accurately detect significant hypoglycemia,and testing in the Laboratory should be considered if clinically indicated. Blood 10/28/2023 5:24 PM DIRECTOR OF INSTITUTIONAL SALES 10/28/2023 5:24 PM DIRECTOR OF INSTITUTIONAL SALES Jaqueline Valero MD LAB POCT ORDERABLES - APRIL CE Final Result Performing Organization Address [facility] Co de Phone Number [facility] [address] [facility] [employer] [place] [address] * (ABNORMAL) POCT glucose (10/28/2023 12:45 PM DIRECTOR OF INSTITUTIONAL SALES) Glucose, POC 201(H) 70 - 140 mg/dL Comment: For Glucose values <35 mg/dl when Hematocrit is >60 mg/dl,the test may not accurately detect significant hypoglycemia,and testing in the Laboratory should be considered if clinically indicated. Blood 10/28/2023 12:4 5 PM DIRECTOR OF INSTITUTIONAL SALES 10/28/2023 12:45 PM DIRECTOR OF INSTITUTIONAL SALES Jaqueline Valero MD LAB POCT ORDERABLES - APRIL CE Final Result Performing Organization Address [facility] de Phone Number [facility] [address] [facility] [employer] [place] [address] * POCT glucose (10/28/2023 8:04 AM DIRECTOR OF INSTITUTIONAL SALES) Glucose, POC 101 70 - 140 mg/dL Comment: For Glucose values <35 mg/dl when Hematocrit is >60 mg/dl,the test may not accurately detect significant hypoglycemia,and testing in the Laboratory should be considered if clinically indicated. Blood 10/28/2023 8:04 AM DIRECTOR OF INSTITUTIONAL SALES 10/28/2023 8:04 AM DIRECTOR OF INSTITUTIONAL SALES Jaqueline Valero MD LAB POCT ORDERABLES - APRIL CE Final Result Performing Organization Address [facility] Co de Phone Number [facility] [address] [facility] [employer] [place] [address] * XR Chest 1 View - Portable - in AM (10/28/2023 6:00 AM DIRECTOR OF INSTITUTIONAL SALES) Anatomical Region Laterality Modality Body, Chest N/A Computed Radiogr aphy 10/28/2023 8:40 AM DIRECTOR OF INSTITUTIONAL SALES Impressions 10/28/2023 8:40 AM DIRECTOR OF INSTITUTIONAL SALES Comparison made to radiograph 10/27/2023. Right internal jugular approach central venous catheter tip overlying the superior vena cava. ??Median sternotomy wires and plates in similar alignment. Likely small bilateral pleural effusions with fluid along the right minor fissure. ??There is mild bibasilar atelectasis. ??No pneumothorax. ??Cardiomediastinal silhouette is stably enlarged. Electronically signed by: Trace Barrow M.D. Narrative 10/28/2023 8:40 AM DIRECTOR OF INSTITUTIONAL SALES EXAMINATION: XR CHEST 1 VIEW Procedure Note [...] signed by: Trace Barrow M.D. Byron Olvera BENCH WORKER APPRENTICE IMG XR PROCEDURES Final Result * eGFR (10/28/2023 12:34 AM DIRECTOR OF INSTITUTIONAL SALES) eGFR 6 mL/min/1. 73 m2 Comment: Interpretive [...] reviewed 2021. Blood 10/28/2023 12:3 4 AM DIRECTOR OF INSTITUTIONAL SALES 10/28/2023 1:02 AM DIRECTOR OF INSTITUTIONAL SALES us Byron Olvera NP LAB BLOOD ORDERABLES Fi nal Result Performing Organization Address [facility] Co de Phone Number [facility] [address] Department of [employer] [place], [place] [id number] * (ABNORMAL) aPTT (10/28/2023 12:34 AM DIRECTOR OF INSTITUTIONAL SALES) aPTT 102(H) 28 - 38 sec Comment: Interpretive Data Heparin therapeutic range: 66.0 - 100.0 seconds. Range based on correlation with therapeutic heparin activity range of 0.3 - 0.7 Units/mL. Current interpretive data was last revised on 2023. Blood 10/28/2023 12:3 4 AM DIRECTOR OF INSTITUTIONAL SALES 10/28/2023 1:02 AM DIRECTOR OF INSTITUTIONAL SALES Narrative [facility] - 10/28/2023 1:15 AM DIRECTOR OF INSTITUTIONAL SALES While on heparin Jaqueline Valero MD LAB BLOOD ORDERABLES Final Result Performing Organization Address [facility] Co de Phone Number [facility] [address] Department of [employer] [place], [place] [phone] * (ABNORMAL) Protime-INR (10/28/2023 12:34 AM DIRECTOR OF INSTITUTIONAL SALES) PT 30.1(H) 10.3 - 13.7 sec INR 2.64(H) 0.90 - 1.20 [facility] Comment: Interpretive data Oral anticoagulant therapeutic ranges: Venous thromboembolism prophylaxis or treatment: 2.0-3.0 CARDIOLOGY Standard range: 2.0-3.0 High-intensity range: 2.5-3.5 Refer to indication-specific guidelines for appropriate target ranges for prosthetic heart valve replacement. Current interpretive data was last revised on 2019. Blood 10/28/2023 12:3 4 AM DIRECTOR OF INSTITUTIONAL SALES 10/28/2023 1:02 AM DIRECTOR OF INSTITUTIONAL SALES Byron Olvera NP LAB BLOOD ORDERABLES Fi nal Result Performing Organization Address City/[facility] Co de Phone Number [facility] [address] [facility] [employer] [place] [address] * Magnesium (10/28/2023 12:34 AM DIRECTOR OF INSTITUTIONAL SALES) [facility] Magnesium 2.3 1.4 - 2.5 mg/dL Blood 10/28/2023 12:3 4 AM DIRECTOR OF INSTITUTIONAL SALES 10/28/2023 1:02 AM DIRECTOR OF INSTITUTIONAL SALES Byron Olvera NP LAB BLOOD ORDERABLES Fi nal Result Performing Organization Address [facility] Co de Phone Number [facility] [address] [facility] [employer] [place] [address] * (ABNORMAL) Renal function panel (10/28/2023 12:34 AM DIRECTOR OF INSTITUTIONAL SALES) [facility] Sodium 128(L) 135 - 145 mmol/L Potassium, pl 4.4 3.3 - 4.9 mmol/L [facility] Chloride 87(L) 97 - 110 mmol/L [facility] CO2 22 22 - 32 mmol/L [facility] Anion gap 19(H) 2 - 15 mmol/L [facility] BUN 90(H) 6 - 25 mg/dL [facility] Creatinine 9.98(H) 0.80 - 1.30 mg/dL [facility] Glucose 270(H) 70 - 199 mg/dL [facility] Comment: Interpretive Data Fasting glucose [...] 2022. Calcium 8.9 8.5 - 10.3 mg/dL [facility] Phosphorus, pl 6.3(H) 2.3 - 4.5 mg/dL [facility] Albumin 2.9(L) 3.5 - 5.0 g/dL [facility] Blood 10/28/2023 12:3 4 AM DIRECTOR OF INSTITUTIONAL SALES 10/28/2023 1:02 AM DIRECTOR OF INSTITUTIONAL SALES us Byron Olvera NP LAB BLOOD ORDERABLES Fi nal Result [facility] [address] Department [place] [address] * (ABNORMAL) CBC without differential (10/28/2023 12:34 AM DIRECTOR OF INSTITUTIONAL SALES) WBC 7.4 3.8 - 9.9 K/cumm Hgb 7.4(L) 13.0 - 17.5 g/dL [facility] Hct 24.1(L) 38.9 - 50.3 % [facility] Plt 244 150 - 400 K/cumm [facility] MPV 10.5 9.1 - 12.3 fL [facility] RBC 2.55(L) 4.30 - 5.80 M/cumm [facility] MCV 94.5 81.3 - 96.4 fL [facility] MCH 29.0 27.1 - 33.3 pg [facility] MCHC 30.7(L) 32.3 - 35.7 g/dL [facility] RDW CV 15.6(H) 11.1 - 14.9 % [facility] RDW SD 53.4(H) 35.7 - 48.1 fL [facility] NRBC abs 0.00 0.00 - 0.01 K/cumm [facility] Blood 10/28/2023 12:3 4 AM DIRECTOR OF INSTITUTIONAL SALES 10/28/2023 1:03 AM DIRECTOR OF INSTITUTIONAL SALES Byron Olvera BENCH WORKER APPRENTICE LAB BLOOD ORDERABLES Fi nal Result Performing Organization Address [facility] Co de Phone Number [facility] [address] Department [place] [address] * (ABNORMAL) POCT glucose (10/27/2023 10:01 PM DIRECTOR OF INSTITUTIONAL SALES) Glucose, POC 312(H) 70 - 140 mg/dL Comment: For Glucose values <35 mg/dl when Hematocrit is >60 mg/dl,the test may not accurately detect significant hypoglycemia,and testing in the Laboratory should be considered if clinically indicated. Blood 10/27/2023 10:0 1 PM DIRECTOR OF INSTITUTIONAL SALES 10/27/2023 10:01 PM DIRECTOR OF INSTITUTIONAL SALES Jaqueline Valero MD LAB POCT ORDERABLES - APRIL CE Final Result Performing Organization Address [facility] de Phone Number [facility] [address] Department of [employer] [place] [address] * POCT glucose (10/27/2023 5:48 PM DIRECTOR OF INSTITUTIONAL SALES) Glucose, POC 108 70 - 140 mg/dL Comment: For Glucose values <35 mg/dl when Hematocrit is >60 mg/dl,the test may not accurately detect significant hypoglycemia,and testing in the Laboratory should be considered if clinically indicated. Blood 10/27/2023 5:48 PM DIRECTOR OF INSTITUTIONAL SALES 10/27/2023 5:48 PM DIRECTOR OF INSTITUTIONAL SALES Jaqueline Valero MD LAB POCT ORDERABLES - APRIL CE Final Result Performing Organization Address [facility] de Phone Number [facility] [address] Department of [employer] [place] [address] * (ABNORMAL) POCT glucose (10/27/2023 11:54 AM DIRECTOR OF INSTITUTIONAL SALES) Glucose, POC 232(H) 70 - 140 mg/dL Comment: For Glucose values <35 mg/dl when Hematocrit is >60 mg/dl,the test may not accurately detect significant hypoglycemia,and testing in the Laboratory should be considered if clinically indicated. Blood 10/27/2023 11:5 4 AM DIRECTOR OF INSTITUTIONAL SALES 10/27/2023 11:54 AM DIRECTOR OF INSTITUTIONAL SALES Jaqueline Valero MD LAB POCT ORDERABLES - APRIL CE Final Result Performing Organization Address [facility] de Phone Number [facility] [address] [facility] [employer] [place] [address] * (ABNORMAL) T4, free (10/27/2023 11:02 AM DIRECTOR OF INSTITUTIONAL SALES) Free T4 0.68(L) 0.90 - 1.70 ng/dL Blood 10/27/2023 11:0 2 AM DIRECTOR OF INSTITUTIONAL SALES 10/27/2023 11:14 AM DIRECTOR OF INSTITUTIONAL SALES us Fernandez Carranza MD LAB BLOOD ORDERABLES Final Resu lt Performing Organization Address [facility] de Phone Number [facility] [address] Department of [employer] [place] [address] * (ABNORMAL) POCT glucose (10/27/2023 8:28 AM DIRECTOR OF INSTITUTIONAL SALES) Glucose, POC 255(H) 70 - 140 mg/dL Comment: For Glucose values <35 mg/dl when Hematocrit is >60 mg/dl,the test may not accurately detect significant hypoglycemia,and testing in the Laboratory should be considered if clinically indicated. Blood 10/27/2023 8:28 AM DIRECTOR OF INSTITUTIONAL SALES 10/27/2023 8:28 AM DIRECTOR OF INSTITUTIONAL SALES us Jaqueline Valero MD LAB POCT ORDERABLES - APRIL CE Final Result Performing Organization Address City/[facility]/ZIP Co de Phone Number [facility] [address] [place] [address] * XR Chest 1 View - Portable - in AM (10/27/2023 6:14 AM DIRECTOR OF INSTITUTIONAL SALES) Anatomical Region Laterality Modality Body, Chest N/A Computed Radiogr aphy 10/27/2023 10:5 5 AM DIRECTOR OF INSTITUTIONAL SALES Impressions 10/27/2023 10:55 AM DIRECTOR OF INSTITUTIONAL SALES Right internal jugular central venous catheter terminates in the superior cavoatrial junction. Unchanged small left pleural effusion with associated atelectasis. No consolidation to suggest pneumonia. ??No pneumothorax. ??Cardiac mediastinal silhouette is stable. Electronically signed by: Gucci Moe M.D. Narrative 10/27/2023 10:55 AM DIRECTOR OF INSTITUTIONAL SALES EXAMINATION: XR CHEST 1 VIEW HISTORY: pleural [...] signed by: Gucci Moe M.D. Byron Olvera BENCH WORKER APPRENTICE IMG XR PROCEDURES Final Result * (ABNORMAL) Osmolality, blood (10/27/2023 6:02 AM DIRECTOR OF INSTITUTIONAL SALES) Osmo 313(H) 275 - 295 mOsm/kg Blood 10/27/2023 6:02 AM DIRECTOR OF INSTITUTIONAL SALES 10/27/2023 6:12 AM DIRECTOR OF INSTITUTIONAL SALES us Fernandez Carranza MD LAB BLOOD ORDERABLES Final Resu lt Performing Organization Address [facility]/ZIP Co de Phone Number [facility] [address] Department [employer] [place] [address] * (ABNORMAL) TSH (10/27/2023 2:30 AM DIRECTOR OF INSTITUTIONAL SALES) Pathologist [facility] Thyroid Stimulating Hormone 13.20(H) 0.30 - 4.20 mcIUnit/mL Blood 10/27/2023 2:30 AM DIRECTOR OF INSTITUTIONAL SALES 10/27/2023 2:42 AM DIRECTOR OF INSTITUTIONAL SALES Jaqueline Valero MD LAB BLOOD ORDERABLES Final Result Performing Organization Address [facility] de Phone Number [facility] [address] [facility] [employer] [place] [address] * (ABNORMAL) aPTT (10/27/2023 2:30 AM DIRECTOR OF INSTITUTIONAL SALES) [facility] aPTT 91(H) 28 - 38 sec Comment: Interpretive Data Heparin therapeutic range: 66.0 - 100.0 seconds. Range based on correlation with therapeutic heparin activity range of 0.3 - 0.7 Units/mL. Current interpretive data was last revised on 2023. Blood 10/27/2023 2:30 AM DIRECTOR OF INSTITUTIONAL SALES 10/27/2023 2:34 AM DIRECTOR OF INSTITUTIONAL SALES Jaqueline Valero MD LAB BLOOD ORDERABLES Final Result Performing Organization Address [facility] de Phone Number [facility] [address] [facility] [employer] [place] [address] * eGFR (10/27/2023 2:30 AM DIRECTOR OF INSTITUTIONAL SALES) Pathologist [facility] eGFR 6 mL/min/1. 73 m2 Comment: Interpretive [...] last reviewed 2021. Blood 10/27/2023 2:30 AM DIRECTOR OF INSTITUTIONAL SALES 10/27/2023 2:42 AM DIRECTOR OF INSTITUTIONAL SALES Byron Olvera NP LAB BLOOD ORDERABLES Fi nal Result Performing Organization Address [facility] de Phone Number [facility] [address] [employer] [place], [place] [id number] * (ABNORMAL) Protime-INR (10/27/2023 2:30 AM DIRECTOR OF INSTITUTIONAL SALES) PT 22.7(H) 10.3 - 13.7 sec INR 1.99(H) 0.90 - 1.20 [facility] Comment: Interpretive data Oral anticoagulant therapeutic ranges: Venous thromboembolism prophylaxis or treatment: 2.0-3.0 CARDIOLOGY Standard range: 2.0-3.0 High-intensity range: 2.5-3.5 Refer to indication-specific guidelines for appropriate target ranges for prosthetic heart valve replacement. Current interpretive data was last revised on 2019. Blood 10/27/2023 2:30 AM DIRECTOR OF INSTITUTIONAL SALES 10/27/2023 2:34 AM DIRECTOR OF INSTITUTIONAL SALES Byron Olvera NP LAB BLOOD ORDERABLES Fi nal Result Performing Organization Address [facility] de Phone Number [facility] [address] Department [place] [address] * Magnesium (10/27/2023 2:30 AM DIRECTOR OF INSTITUTIONAL SALES) Pathologist [facility] Magnesium 2.3 1.4 - 2.5 mg/dL Blood 10/27/2023 2:30 AM DIRECTOR OF INSTITUTIONAL SALES 10/27/2023 2:42 AM DIRECTOR OF INSTITUTIONAL SALES Byron Olvera NP LAB BLOOD ORDERABLES Fi nal Result [facility] [address] Department [place] [address] * (ABNORMAL) Renal function panel (10/27/2023 2:30 AM DIRECTOR OF INSTITUTIONAL SALES) Pathologist [facility] Sodium 123(L) 135 - 145 mmol/L Potassium, pl 4.2 3.3 - 4.9 mmol/L [facility] Chloride 85(L) 97 - 110 mmol/L [facility] CO2 24 22 - 32 mmol/L [facility] Anion gap 14 2 - 15 mmol/L [facility] BUN 87(H) 6 - 25 mg/dL [facility] Creatinine 10.09(H) 0.80 - 1.30 mg/dL [facility] Glucose 192 70 - 199 mg/dL [facility] Comment: Interpretive Data Fasting glucose [...] 2022. Calcium 8.7 8.5 - 10.3 mg/dL [facility] Phosphorus, pl 7.1(H) 2.3 - 4.5 mg/dL [facility] Albumin 2.9(L) 3.5 - 5.0 g/dL [facility] Blood 10/27/2023 2:30 AM DIRECTOR OF INSTITUTIONAL SALES 10/27/2023 2:42 AM DIRECTOR OF INSTITUTIONAL SALES Byron Olvera NP LAB BLOOD ORDERABLES Fi nal Result Performing Organization Address [facility] Co de Phone Number [facility] [address] [place] [address] * (ABNORMAL) CBC without differential (10/27/2023 2:30 AM DIRECTOR OF INSTITUTIONAL SALES) [facility] WBC 8.0 3.8 - 9.9 K/cumm Hgb 7.5(L) 13.0 - 17.5 g/dL [facility] Hct 23.7(L) 38.9 - 50.3 % [facility] Plt 222 150 - 400 K/cumm [facility] MPV 10.3 9.1 - 12.3 fL [facility] RBC 2.55(L) 4.30 - 5.80 M/cumm [facility] MCV 92.9 81.3 - 96.4 fL [facility] MCH 29.4 27.1 - 33.3 pg [facility] MCHC 31.6(L) 32.3 - 35.7 g/dL [facility] RDW CV 15.6(H) 11.1 - 14.9 % [facility] RDW SD 53.1(H) 35.7 - 48.1 fL [facility] NRBC abs 0.00 0.00 - 0.01 K/cumm [facility] Blood 10/27/2023 2:30 AM DIRECTOR OF INSTITUTIONAL SALES 10/27/2023 2:42 AM DIRECTOR OF INSTITUTIONAL SALES Byron Olvera NP LAB BLOOD ORDERABLES Fi nal Result Performing Organization Address City/[facility]/ZIP Co de Phone Number [facility] [address] Department [employer] [place] [address] * (ABNORMAL) POCT glucose (10/26/2023 11:15 PM DIRECTOR OF INSTITUTIONAL SALES) Pathologist [facility] Glucose, POC 220(H) 70 - 140 mg/dL Comment: For Glucose values <35 mg/dl when Hematocrit is >60 mg/dl,the test may not accurately detect significant hypoglycemia,and testing in the Laboratory should be considered if clinically indicated. Blood 10/26/2023 11:1 5 PM DIRECTOR OF INSTITUTIONAL SALES 10/26/2023 11:15 PM DIRECTOR OF INSTITUTIONAL SALES Jaqueline Valero MD LAB POCT ORDERABLES - APRIL CE Final Result Performing Organization Address [facility] de Phone Number [facility] [address] [facility] [employer] [place] [address] * (ABNORMAL) POCT glucose (10/26/2023 4:53 PM DIRECTOR OF INSTITUTIONAL SALES) Glucose, POC 333(H) 70 - 140 mg/dL Comment: For Glucose values <35 mg/dl when Hematocrit is >60 mg/dl,the test may not accurately detect significant hypoglycemia,and testing in the Laboratory should be considered if clinically indicated. Blood 10/26/2023 4:53 PM DIRECTOR OF INSTITUTIONAL SALES 10/26/2023 4:53 PM DIRECTOR OF INSTITUTIONAL SALES Jaqueline Valero MD LAB POCT ORDERABLES - APRIL CE Final Result Performing Organization Address [facility] de Phone Number [facility] [address] [place] [address] * (ABNORMAL) POCT glucose (10/26/2023 11:57 AM DIRECTOR OF INSTITUTIONAL SALES) Glucose, POC 203(H) 70 - 140 mg/dL Comment: For Glucose values <35 mg/dl when Hematocrit is >60 mg/dl,the test may not accurately detect significant hypoglycemia,and testing in the Laboratory should be considered if clinically indicated. Blood 10/26/2023 11:5 7 AM DIRECTOR OF INSTITUTIONAL SALES 10/26/2023 11:57 AM DIRECTOR OF INSTITUTIONAL SALES Jaqueline Valero MD LAB POCT ORDERABLES - APRIL CE Final Result Performing Organization Address [facility] de Phone Number [facility] [address] Department [place] [address] * POCT glucose (10/26/2023 8:00 AM DIRECTOR OF INSTITUTIONAL SALES) [facility] Signature Glucose, POC 90 70 - 140 mg/dL Comment: For Glucose values <35 mg/dl when Hematocrit is >60 mg/dl,the test may not accurately detect significant hypoglycemia,and testing in the Laboratory should be considered if clinically indicated. Blood 10/26/2023 8:00 AM DIRECTOR OF INSTITUTIONAL SALES 10/26/2023 8:00 AM DIRECTOR OF INSTITUTIONAL SALES us Jaqueline Valero MD LAB POCT ORDERABLES - APRIL CE Final Result [facility] [address] Department [place] [address] * XR Chest 1 View - Portable - in AM (10/26/2023 5:09 AM DIRECTOR OF INSTITUTIONAL SALES) Anatomical Region Laterality Modality Body, Chest N/A Computed Radiogr aphy 10/26/2023 7:40 AM DIRECTOR OF INSTITUTIONAL SALES Impressions 10/26/2023 7:40 AM DIRECTOR OF INSTITUTIONAL SALES Comparison chest radiograph 10/25/2023 at 6:39 AM. [...] Chris Troncoso M.D. Narrative 10/26/2023 7:40 AM DIRECTOR OF INSTITUTIONAL SALES EXAMINATION: ??1 view chest radiograph Procedure Note [...] signed by: Chris Troncoso M.D. Byron Olvera BENCH WORKER APPRENTICE IMG XR PROCEDURES Final Result * eGFR (10/26/2023 2:29 AM DIRECTOR OF INSTITUTIONAL SALES) eGFR 6 mL/min/1. 73 m2 Comment: Interpretive [...] last reviewed 2021. Blood 10/26/2023 2:29 AM DIRECTOR OF INSTITUTIONAL SALES 10/26/2023 3:11 AM DIRECTOR OF INSTITUTIONAL SALES Byron Olvera NP LAB BLOOD ORDERABLES Fi nal Result Performing Organization Address [facility] Co de Phone Number [facility] [address] [facility] [employer] [place], [place] [id number] * (ABNORMAL) aPTT (10/26/2023 2:29 AM DIRECTOR OF INSTITUTIONAL SALES) aPTT 74(H) 28 - 38 sec Comment: Interpretive Data Heparin therapeutic range: 66.0 - 100.0 seconds. Range based on correlation with therapeutic heparin activity range of 0.3 - 0.7 Units/mL. Current interpretive data was last revised on 2023. Blood 10/26/2023 2:29 AM DIRECTOR OF INSTITUTIONAL SALES 10/26/2023 2:57 AM DIRECTOR OF INSTITUTIONAL SALES Jaqueline Valero MD LAB BLOOD ORDERABLES Final Result Performing Organization Address [facility] Co de Phone Number [facility] [address] [facility] [employer] [place] [address] * (ABNORMAL) Protime-INR (10/26/2023 2:29 AM DIRECTOR OF INSTITUTIONAL SALES) PT 19.4(H) 10.3 - 13.7 sec INR 1.70(H) 0.90 - 1.20 [facility] Comment: Interpretive data Oral anticoagulant therapeutic ranges: Venous thromboembolism prophylaxis or treatment: 2.0-3.0 CARDIOLOGY Standard range: 2.0-3.0 High-intensity range: 2.5-3.5 Refer to indication-specific guidelines for appropriate target ranges for prosthetic heart valve replacement. Current interpretive data was last revised on 2019. Blood 10/26/2023 2:29 AM DIRECTOR OF INSTITUTIONAL SALES 10/26/2023 2:57 AM DIRECTOR OF INSTITUTIONAL SALES Byron Rudi Olvera BENCH WORKER APPRENTICE LAB BLOOD ORDERABLES Fi nal Result [facility] [address] Department [employer] [place] [address] * Magnesium (10/26/2023 2:29 AM DIRECTOR OF INSTITUTIONAL SALES) [facility] Magnesium 2.2 1.4 - 2.5 mg/dL Blood 10/26/2023 2:29 AM DIRECTOR OF INSTITUTIONAL SALES 10/26/2023 3:11 AM DIRECTOR OF INSTITUTIONAL SALES Byron Rudi Olvera NP LAB BLOOD ORDERABLES Fi nal Result Performing Organization Address [facility] Co de Phone Number [facility] [address] [employer] [place] [address] * (ABNORMAL) Renal function panel (10/26/2023 2:29 AM DIRECTOR OF INSTITUTIONAL SALES) [facility] Sodium 124(L) 135 - 145 mmol/L Potassium, pl 4.2 3.3 - 4.9 mmol/L [facility] Chloride 84(L) 97 - 110 mmol/L [facility] CO2 23 22 - 32 mmol/L [facility] Anion gap 17(H) 2 - 15 mmol/L [facility] BUN 85(H) 6 - 25 mg/dL [facility] Creatinine 9.95(H) 0.80 - 1.30 mg/dL [facility] Glucose 206(H) 70 - 199 mg/dL [facility] Comment: Interpretive Data Fasting glucose [...] 2022. Calcium 8.6 8.5 - 10.3 mg/dL [facility] Phosphorus, pl 6.5(H) 2.3 - 4.5 mg/dL [facility] Albumin 3.0(L) 3.5 - 5.0 g/dL [facility] Blood 10/26/2023 2:29 AM DIRECTOR OF INSTITUTIONAL SALES 10/26/2023 3:11 AM DIRECTOR OF INSTITUTIONAL SALES Byron Olvera NP LAB BLOOD ORDERABLES Fi nal Result Performing Organization Address [facility] Co de Phone Number [facility] [address] [employer] [place], [place] [id number] * (ABNORMAL) CBC without differential (10/26/2023 2:29 AM DIRECTOR OF INSTITUTIONAL SALES) [facility] WBC 7.9 3.8 - 9.9 K/cumm Hgb 7.9(L) 13.0 - 17.5 g/dL [facility] Hct 24.7(L) 38.9 - 50.3 % [facility] Plt 209 150 - 400 K/cumm [facility] MPV 10.6 9.1 - 12.3 fL [facility] RBC 2.64(L) 4.30 - 5.80 M/cumm [facility] MCV 93.6 81.3 - 96.4 fL [facility] MCH 29.9 27.1 - 33.3 pg [facility] MCHC 32.0(L) 32.3 - 35.7 g/dL [facility] RDW CV 15.5(H) 11.1 - 14.9 % [facility] RDW SD 52.4(H) 35.7 - 48.1 fL [facility] NRBC abs 0.00 0.00 - 0.01 K/cumm [facility] Blood 10/26/2023 2:29 AM DIRECTOR OF INSTITUTIONAL SALES 10/26/2023 3:11 AM DIRECTOR OF INSTITUTIONAL SALES Byron Olvera NP LAB BLOOD ORDERABLES Fi nal Result Performing Organization Address City/[facility]/ZIP Co de Phone Number [facility] [address] Department [employer] [place], [place] [phone] * (ABNORMAL) aPTT (10/25/2023 9:15 PM DIRECTOR OF INSTITUTIONAL SALES) aPTT 78(H) 28 - 38 sec Comment: Interpretive Data Heparin therapeutic range: 66.0 - 100.0 seconds. Range based on correlation with therapeutic heparin activity range of 0.3 - 0.7 Units/mL. Current interpretive data was last revised on 2023. Blood 10/25/2023 9:15 PM DIRECTOR OF INSTITUTIONAL SALES 10/25/2023 9:19 PM DIRECTOR OF INSTITUTIONAL SALES Jaqueline Valero MD LAB BLOOD ORDERABLES Final Result Performing Organization Address [facility] Co de Phone Number [facility] [address] [facility] [employer] [place], [place] [phone] * (ABNORMAL) POCT glucose (10/25/2023 9:14 PM DIRECTOR OF INSTITUTIONAL SALES) Glucose, POC 147(H) 70 - 140 mg/dL Comment: For Glucose values <35 mg/dl when Hematocrit is >60 mg/dl,the test may not accurately detect significant hypoglycemia,and testing in the Laboratory should be considered if clinically indicated. Blood 10/25/2023 9:14 PM DIRECTOR OF INSTITUTIONAL SALES 10/25/2023 9:14 PM DIRECTOR OF INSTITUTIONAL SALES Jaqueline Valero MD LAB POCT ORDERABLES - APRIL CE Final Result Performing Organization Address [facility] Co de Phone Number [facility] [address] [facility] [employer] [place] [address] * (ABNORMAL) POCT glucose (10/25/2023 4:51 PM DIRECTOR OF INSTITUTIONAL SALES) Glucose, POC 238(H) 70 - 140 mg/dL Comment: For Glucose values <35 mg/dl when Hematocrit is >60 mg/dl,the test may not accurately detect significant hypoglycemia,and testing in the Laboratory should be considered if clinically indicated. Blood 10/25/2023 4:51 PM DIRECTOR OF INSTITUTIONAL SALES 10/25/2023 4:51 PM DIRECTOR OF INSTITUTIONAL SALES Jaqueline Valero MD LAB POCT ORDERABLES - APRIL CE Final Result Performing Organization Address [facility] Co de Phone Number [facility] [address] [employer] [place], [place] [phone] * (ABNORMAL) aPTT (10/25/2023 2:48 PM DIRECTOR OF INSTITUTIONAL SALES) aPTT 72(H) 28 - 38 sec Comment: Interpretive Data Heparin therapeutic range: 66.0 - 100.0 seconds. Range based on correlation with therapeutic heparin activity range of 0.3 - 0.7 Units/mL. Current interpretive data was last revised on 2023. Blood 10/25/2023 2:48 PM DIRECTOR OF INSTITUTIONAL SALES 10/25/2023 3:04 PM DIRECTOR OF INSTITUTIONAL SALES Jaqueline Valero MD LAB BLOOD ORDERABLES Final Result Performing Organization Address [facility] de Phone Number [facility] [address] [employer] [place], [place] [phone] * (ABNORMAL) POCT glucose (10/25/2023 11:15 AM DIRECTOR OF INSTITUTIONAL SALES) Glucose, POC 208(H) 70 - 140 mg/dL Comment: For Glucose values <35 mg/dl when Hematocrit is >60 mg/dl,the test may not accurately detect significant hypoglycemia,and testing in the Laboratory should be considered if clinically indicated. Blood 10/25/2023 11:1 5 AM DIRECTOR OF INSTITUTIONAL SALES 10/25/2023 11:15 AM DIRECTOR OF INSTITUTIONAL SALES Jaqueline Valero MD LAB POCT ORDERABLES - APRIL CE Final Result Performing Organization Address [facility] Co de Phone Number [facility] [address] [facility] [employer] [place], [place] [phone] * POCT glucose (10/25/2023 9:49 AM DIRECTOR OF INSTITUTIONAL SALES) Glucose, POC 119 70 - 140 mg/dL Comment: For Glucose values <35 mg/dl when Hematocrit is >60 mg/dl,the test may not accurately detect significant hypoglycemia,and testing in the Laboratory should be considered if clinically indicated. Blood 10/25/2023 9:49 AM DIRECTOR OF INSTITUTIONAL SALES 10/25/2023 9:49 AM DIRECTOR OF INSTITUTIONAL SALES Jaqueline Valero MD LAB POCT ORDERABLES - APRIL CE Final Result Performing Organization Address [facility] de Phone Number [facility] [address] Department [employer] [place] [address] * POCT glucose (10/25/2023 7:36 AM DIRECTOR OF INSTITUTIONAL SALES) [facility] Signature Glucose, POC 77 70 - 140 mg/dL [facility] Comment: For Glucose values <35 mg/dl when Hematocrit is >60 mg/dl,the test may not accurately detect significant hypoglycemia,and testing in the Laboratory should be considered if clinically indicated. Blood 10/25/2023 7:36 AM DIRECTOR OF INSTITUTIONAL SALES 10/25/2023 7:36 AM DIRECTOR OF INSTITUTIONAL SALES Jaqueline Valero MD LAB POCT ORDERABLES - APRIL CE Final Result Performing Organization Address [facility] de Phone Number [facility] [address] Department [employer] [place] [address] * XR Chest 1 View - Portable - in AM (10/25/2023 6:52 AM DIRECTOR OF INSTITUTIONAL SALES) Anatomical Region Laterality Modality Body, Chest N/A Computed Radiogr aphy 10/25/2023 11:4 3 AM DIRECTOR OF INSTITUTIONAL SALES Impressions 10/25/2023 1:22 PM DIRECTOR OF INSTITUTIONAL SALES Comparison made to 10/24/2023. ??Sternal fixation wires [...] Arnoldo Abdul M.D. Narrative 10/25/2023 1:22 PM DIRECTOR OF INSTITUTIONAL SALES EXAMINATION: XR CHEST 1 VIEW Procedure Note [...] signed by: Arnoldo Abdul M.D. Byron Olvera BENCH WORKER APPRENTICE IMG XR PROCEDURES Final Result * (ABNORMAL) aPTT (10/25/2023 6:48 AM DIRECTOR OF INSTITUTIONAL SALES) aPTT 65(H) 28 - 38 sec [facility] Comment: Interpretive Data Heparin therapeutic range: 66.0 - 100.0 seconds. Range based on correlation with therapeutic heparin activity range of 0.3 - 0.7 Units/mL. Current interpretive data was last revised on 2023. Blood 10/25/2023 6:48 AM DIRECTOR OF INSTITUTIONAL SALES 10/25/2023 6:58 AM DIRECTOR OF INSTITUTIONAL SALES us Jaqueline Valero MD LAB BLOOD ORDERABLES Final Result [facility] [address] Department [employer] [place] [address] * POCT glucose (10/25/2023 4:23 AM DIRECTOR OF INSTITUTIONAL SALES) Glucose, POC 130 70 - 140 mg/dL [facility] Comment: For Glucose values <35 mg/dl when Hematocrit is >60 mg/dl,the test may not accurately detect significant hypoglycemia,and testing in the Laboratory should be considered if clinically indicated. Blood 10/25/2023 4:23 AM DIRECTOR OF INSTITUTIONAL SALES 10/25/2023 4:23 AM DIRECTOR OF INSTITUTIONAL SALES us Jaqueline Valero MD LAB POCT ORDERABLES - APRIL CE Final Result [facility] [address] Department [place] [address] * eGFR (10/25/2023 12:34 AM DIRECTOR OF INSTITUTIONAL SALES) [facility] eGFR 5 mL/min/1. 73 m2 [facility] Comment: Interpretive Data Reference Interval [...] reviewed 2021. Blood 10/25/2023 12:3 4 AM DIRECTOR OF INSTITUTIONAL SALES 10/25/2023 12:42 AM DIRECTOR OF INSTITUTIONAL SALES Byron Olvera NP LAB BLOOD ORDERABLES Fi nal Result Performing Organization Address City/[facility]/ZIP Co de Phone Number [facility] [address] [facility] [employer] [place] [address] * Magnesium (10/25/2023 12:34 AM DIRECTOR OF INSTITUTIONAL SALES) [facility] Magnesium 2.3 1.4 - 2.5 mg/dL [facility] Blood 10/25/2023 12:3 4 AM DIRECTOR OF INSTITUTIONAL SALES 10/25/2023 12:42 AM DIRECTOR OF INSTITUTIONAL SALES Byron Olvera NP LAB BLOOD ORDERABLES Fi nal Result Performing Organization Address [facility] de Phone Number [facility] [address] [facility] [employer] [place] [address] * (ABNORMAL) Renal function panel (10/25/2023 12:34 AM DIRECTOR OF INSTITUTIONAL SALES) Pathologist [facility] Sodium 128(L) 135 - 145 mmol/L [facility] Potassium, pl 4.0 3.3 - 4.9 mmol/L [facility] Chloride 86(L) 97 - 110 mmol/L [facility] CO2 21(L) 22 - 32 mmol/L [facility] Anion gap 21(H) 2 - 15 mmol/L [facility] BUN 86(H) 6 - 25 mg/dL [facility] Creatinine 10.57(H) 0.80 - 1.30 mg/dL [facility] Glucose 97 70 - 199 mg/dL [facility] Comment: Interpretive Data Fasting glucose [...] 2022. Calcium 9.0 8.5 - 10.3 mg/dL [facility] Phosphorus, pl 6.5(H) 2.3 - 4.5 mg/dL [facility] Albumin 2.9(L) 3.5 - 5.0 g/dL [facility] Blood 10/25/2023 12:3 4 AM DIRECTOR OF INSTITUTIONAL SALES 10/25/2023 12:42 AM DIRECTOR OF INSTITUTIONAL SALES Byron Olvera NP LAB BLOOD ORDERABLES nal Result [facility] [address] Department [place] [address] * (ABNORMAL) CBC without differential (10/25/2023 12:34 AM DIRECTOR OF INSTITUTIONAL SALES) WBC 8.2 3.8 - 9.9 K/cumm [facility] Hgb 7.8(L) 13.0 - 17.5 g/dL [facility] Hct 24.7(L) 38.9 - 50.3 % [facility] Plt 202 150 - 400 K/cumm [facility] MPV 10.2 9.1 - 12.3 fL [facility] RBC 2.65(L) 4.30 - 5.80 M/cumm [facility] MCV 93.2 81.3 - 96.4 fL [facility] MCH 29.4 27.1 - 33.3 pg [facility] MCHC 31.6(L) 32.3 - 35.7 g/dL [facility] RDW CV 15.9(H) 11.1 - 14.9 % [facility] RDW SD 53.1(H) 35.7 - 48.1 fL [facility] NRBC abs 0.00 0.00 - 0.01 K/cumm [facility] Blood 10/25/2023 12:3 4 AM DIRECTOR OF INSTITUTIONAL SALES 10/25/2023 12:43 AM DIRECTOR OF INSTITUTIONAL SALES Byron Olvera NP LAB BLOOD ORDERABLES Fi nal Result [facility] [address] [facility] [employer] [place] [address] * (ABNORMAL) Protime-INR (10/25/2023 12:33 AM DIRECTOR OF INSTITUTIONAL SALES) PT 18.5(H) 10.3 - 13.7 sec [facility] INR 1.62(H) 0.90 - 1.20 [facility] Comment: Interpretive data Oral anticoagulant therapeutic ranges: Venous thromboembolism prophylaxis or treatment: 2.0-3.0 CARDIOLOGY Standard range: 2.0-3.0 High-intensity range: 2.5-3.5 Refer to indication-specific guidelines for appropriate target ranges for prosthetic heart valve replacement. Current interpretive data was last revised on 2019. Blood 10/25/2023 12:3 3 AM DIRECTOR OF INSTITUTIONAL SALES 10/25/2023 12:40 AM DIRECTOR OF INSTITUTIONAL SALES us Jaqueline Valero MD LAB BLOOD ORDERABLES Final Result Performing Organization Address City/[facility]/ZIP Co de Phone Number [facility] [address] [facility] [employer] [place] [address] * (ABNORMAL) aPTT (10/25/2023 12:33 AM DIRECTOR OF INSTITUTIONAL SALES) aPTT 58(H) 28 - 38 sec [facility] Comment: Interpretive Data Heparin therapeutic range: 66.0 - 100.0 seconds. Range based on correlation with therapeutic heparin activity range of 0.3 - 0.7 Units/mL. Current interpretive data was last revised on 2023. Blood 10/25/2023 12:3 3 AM DIRECTOR OF INSTITUTIONAL SALES 10/25/2023 12:40 AM DIRECTOR OF INSTITUTIONAL SALES Jaqueline Valero MD LAB BLOOD ORDERABLES Final Result [facility] [address] [facility] [employer] [place] [address] * POCT glucose (10/24/2023 9:51 PM DIRECTOR OF INSTITUTIONAL SALES) Glucose, POC 130 70 - 140 mg/dL [facility] Comment: For Glucose values <35 mg/dl when Hematocrit is >60 mg/dl,the test may not accurately detect significant hypoglycemia,and testing in the Laboratory should be considered if clinically indicated. Blood 10/24/2023 9:51 PM DIRECTOR OF INSTITUTIONAL SALES 10/24/2023 9:51 PM DIRECTOR OF INSTITUTIONAL SALES Jaqueline Valero MD LAB POCT ORDERABLES - APRIL CE Final Result Performing Organization Address [facility] de Phone Number [facility] [address] [facility] [employer] [place] [address] * (ABNORMAL) aPTT (10/24/2023 5:15 PM DIRECTOR OF INSTITUTIONAL SALES) aPTT 45(H) 28 - 38 sec [facility] Comment: Interpretive Data Heparin therapeutic range: 66.0 - 100.0 seconds. Range based on correlation with therapeutic heparin activity range of 0.3 - 0.7 Units/mL. Current interpretive data was last revised on 2023. Blood 10/24/2023 5:15 PM DIRECTOR OF INSTITUTIONAL SALES 10/24/2023 5:15 PM DIRECTOR OF INSTITUTIONAL SALES Jaqueline Valero MD LAB BLOOD ORDERABLES Final Result Performing Organization Address [facility] Co de Phone Number [facility] [address] [facility] [employer] [place] [address] * (ABNORMAL) POCT glucose (10/24/2023 4:42 PM DIRECTOR OF INSTITUTIONAL SALES) Glucose, POC 149(H) 70 - 140 mg/dL [facility] Comment: For Glucose values <35 mg/dl when Hematocrit is >60 mg/dl,the test may not accurately detect significant hypoglycemia,and testing in the Laboratory should be considered if clinically indicated. Blood 10/24/2023 4:42 PM DIRECTOR OF INSTITUTIONAL SALES 10/24/2023 4:42 PM DIRECTOR OF INSTITUTIONAL SALES Jaqueline Valero MD LAB POCT ORDERABLES - APRIL CE Final Result Performing Organization Address [facility] de Phone Number [facility] [address] [facility] [place] [address] * POCT glucose (10/24/2023 12:17 PM DIRECTOR OF INSTITUTIONAL SALES) Glucose, POC 118 70 - 140 mg/dL [facility] Comment: For Glucose values <35 mg/dl when Hematocrit is >60 mg/dl,the test may not accurately detect significant hypoglycemia,and testing in the Laboratory should be considered if clinically indicated. Blood 10/24/2023 12:1 7 PM DIRECTOR OF INSTITUTIONAL SALES 10/24/2023 12:17 PM DIRECTOR OF INSTITUTIONAL SALES Jaqueline Valero MD LAB POCT ORDERABLES - APRIL CE Final Result Performing Organization Address [facility] de Phone Number [facility] [address] [facility] [employer] [place] [address] * (ABNORMAL) POCT glucose (10/24/2023 7:44 AM DIRECTOR OF INSTITUTIONAL SALES) Glucose, POC 202(H) 70 - 140 mg/dL [facility] Comment: For Glucose values <35 mg/dl when Hematocrit is >60 mg/dl,the test may not accurately detect significant hypoglycemia,and testing in the Laboratory should be considered if clinically indicated. Blood 10/24/2023 7:44 AM DIRECTOR OF INSTITUTIONAL SALES 10/24/2023 7:44 AM DIRECTOR OF INSTITUTIONAL SALES Jaqueline Valero MD LAB POCT ORDERABLES - APRIL CE Final Result Performing Organization Address [facility] de Phone Number [facility] [address] Department [place] [address] * XR Chest 1 View - Portable - in AM (10/24/2023 5:54 AM DIRECTOR OF INSTITUTIONAL SALES) Anatomical Region Laterality Modality Body, Chest N/A Computed Radiogr aphy 10/24/2023 10:3 4 AM DIRECTOR OF INSTITUTIONAL SALES Impressions 10/24/2023 10:34 AM DIRECTOR OF INSTITUTIONAL SALES Comparison is made to single view chest [...] Tania Malone M.D. Narrative 10/24/2023 10:34 AM DIRECTOR OF INSTITUTIONAL SALES EXAMINATION: 1 view chest radiograph Procedure Note [...] signed by: Tania Malone M.D. Byron Olvera BENCH WORKER APPRENTICE IMG XR PROCEDURES Final Result * eGFR (10/24/2023 1:03 AM DIRECTOR OF INSTITUTIONAL SALES) eGFR 5 mL/min/1. 73 m2 [facility] Comment: Interpretive Data Reference Interval [...] last reviewed 2021. Blood 10/24/2023 1:03 AM DIRECTOR OF INSTITUTIONAL SALES 10/24/2023 1:13 AM DIRECTOR OF INSTITUTIONAL SALES Byron Olvera NP LAB BLOOD ORDERABLES Fi nal Result Performing Organization Address [facility] de Phone Number [facility] [facility] [address] [place] [employer] [address] * (ABNORMAL) Protime-INR (10/24/2023 1:03 AM DIRECTOR OF INSTITUTIONAL SALES) PT 18.2(H) 10.3 - 13.7 sec [facility] INR 1.60(H) 0.90 - 1.20 [facility] Comment: Interpretive data Oral anticoagulant therapeutic ranges: Venous thromboembolism prophylaxis or treatment: 2.0-3.0 CARDIOLOGY Standard range: 2.0-3.0 High-intensity range: 2.5-3.5 Refer to indication-specific guidelines for appropriate target ranges for prosthetic heart valve replacement. Current interpretive data was last revised on 2019. Blood 10/24/2023 1:03 AM DIRECTOR OF INSTITUTIONAL SALES 10/24/2023 1:13 AM DIRECTOR OF INSTITUTIONAL SALES Byron Olvera NP LAB BLOOD ORDERABLES Fi nal Result Performing Organization Address [facility] Co de Phone Number [facility] [address] [employer] [place], [place] [id number] * Magnesium (10/24/2023 1:03 AM DIRECTOR OF INSTITUTIONAL SALES) Magnesium 2.2 1.4 - 2.5 mg/dL [facility] Blood 10/24/2023 1:03 AM DIRECTOR OF INSTITUTIONAL SALES 10/24/2023 1:13 AM DIRECTOR OF INSTITUTIONAL SALES us Byron Olvera BENCH WORKER APPRENTICE LAB BLOOD ORDERABLES Fi nal Result [facility] [address] Department [place] [address] * (ABNORMAL) Renal function panel (10/24/2023 1:03 AM DIRECTOR OF INSTITUTIONAL SALES) Pathologist [facility] Sodium 127(L) 135 - 145 mmol/L [facility] Potassium, pl 4.2 3.3 - 4.9 mmol/L [facility] Chloride 86(L) 97 - 110 mmol/L [facility] CO2 21(L) 22 - 32 mmol/L [facility] Anion gap 20(H) 2 - 15 mmol/L [facility] BUN 90(H) 6 - 25 mg/dL [facility] Creatinine 11.24(H) 0.80 - 1.30 mg/dL [facility] Glucose 143 70 - 199 mg/dL [facility] Comment: Interpretive Data Fasting glucose [...] 2022. Calcium 8.6 8.5 - 10.3 mg/dL [facility] Phosphorus, pl 6.1(H) 2.3 - 4.5 mg/dL [facility] Albumin 2.7(L) 3.5 - 5.0 g/dL [facility] Blood 10/24/2023 1:03 AM DIRECTOR OF INSTITUTIONAL SALES 10/24/2023 1:13 AM DIRECTOR OF INSTITUTIONAL SALES Byron Olvera NP LAB BLOOD ORDERABLES Fi nal Result Performing Organization Address [facility] Co de Phone Number [facility] [address] [place] [address] * (ABNORMAL) CBC without differential (10/24/2023 1:03 AM DIRECTOR OF INSTITUTIONAL SALES) [facility] WBC 9.3 3.8 - 9.9 K/cumm [facility] Hgb 7.6(L) 13.0 - 17.5 g/dL [facility] Hct 24.4(L) 38.9 - 50.3 % [facility] Plt 184 150 - 400 K/cumm [facility] MPV 10.5 9.1 - 12.3 fL [facility] RBC 2.58(L) 4.30 - 5.80 M/cumm [facility] MCV 94.6 81.3 - 96.4 fL [facility] MCH 29.5 27.1 - 33.3 pg [facility] MCHC 31.1(L) 32.3 - 35.7 g/dL [facility] RDW CV 15.9(H) 11.1 - 14.9 % [facility] RDW SD 53.1(H) 35.7 - 48.1 fL [facility] NRBC abs 0.00 0.00 - 0.01 K/cumm [facility] Blood 10/24/2023 1:03 AM DIRECTOR OF INSTITUTIONAL SALES 10/24/2023 1:13 AM DIRECTOR OF INSTITUTIONAL SALES Byron Olvera NP LAB BLOOD ORDERABLES Fi nal Result Performing Organization Address [facility]/ZIP Co de Phone Number [facility] [address] Department [employer] [place] [address] * POCT glucose (10/23/2023 11:14 PM DIRECTOR OF INSTITUTIONAL SALES) Pathologist [facility] Glucose, POC 128 70 - 140 mg/dL [facility] Comment: For Glucose values <35 mg/dl when Hematocrit is >60 mg/dl,the test may not accurately detect significant hypoglycemia,and testing in the Laboratory should be considered if clinically indicated. Blood 10/23/2023 11:1 4 PM DIRECTOR OF INSTITUTIONAL SALES 10/23/2023 11:14 PM DIRECTOR OF INSTITUTIONAL SALES Jaqueline Valero MD LAB POCT ORDERABLES - APRIL CE Final Result Performing Organization Address [facility] de Phone Number [facility] [address] [place] [place] [address] * POCT glucose (10/23/2023 10:43 PM DIRECTOR OF INSTITUTIONAL SALES) Glucose, POC 92 70 - 140 mg/dL [facility] Comment: For Glucose values <35 mg/dl when Hematocrit is >60 mg/dl,the test may not accurately detect significant hypoglycemia,and testing in the Laboratory should be considered if clinically indicated. Blood 10/23/2023 10:4 3 PM DIRECTOR OF INSTITUTIONAL SALES 10/23/2023 10:43 PM DIRECTOR OF INSTITUTIONAL SALES Result [facility] Jaqueline Valero MD LAB POCT ORDERABLES - APRIL CE Final Result Performing Organization Address [facility] de Phone Number [facility] [address] [place] [address] * POCT glucose (10/23/2023 5:12 PM DIRECTOR OF INSTITUTIONAL SALES) Glucose, POC 113 70 - 140 mg/dL [facility] Comment: For Glucose values <35 mg/dl when Hematocrit is >60 mg/dl,the test may not accurately detect significant hypoglycemia,and testing in the Laboratory should be considered if clinically indicated. Blood 10/23/2023 5:12 PM DIRECTOR OF INSTITUTIONAL SALES 10/23/2023 5:12 PM DIRECTOR OF INSTITUTIONAL SALES Jaqueline Valero MD LAB POCT ORDERABLES - APRIL CE Final Result Performing Organization Address [facility]/ZIP Co de Phone Number [facility] [address] [facility] [employer] [place] [address] * (ABNORMAL) POCT glucose (10/23/2023 12:08 PM DIRECTOR OF INSTITUTIONAL SALES) Glucose, POC 203(H) 70 - 140 mg/dL [facility] Comment: For Glucose values <35 mg/dl when Hematocrit is >60 mg/dl,the test may not accurately detect significant hypoglycemia,and testing in the Laboratory should be considered if clinically indicated. Blood 10/23/2023 12:0 8 PM DIRECTOR OF INSTITUTIONAL SALES 10/23/2023 12:08 PM DIRECTOR OF INSTITUTIONAL SALES Jaqueline Valero MD LAB POCT ORDERABLES - APRIL CE Final Result Performing Organization Address [facility] Co de Phone Number [facility] [address] [facility] [employer] [place] [address] * (ABNORMAL) POCT glucose (10/23/2023 7:54 AM DIRECTOR OF INSTITUTIONAL SALES) Glucose, POC 205(H) 70 - 140 mg/dL [facility] Comment: For Glucose values <35 mg/dl when Hematocrit is >60 mg/dl,the test may not accurately detect significant hypoglycemia,and testing in the Laboratory should be considered if clinically indicated. Blood 10/23/2023 7:54 AM DIRECTOR OF INSTITUTIONAL SALES 10/23/2023 7:54 AM DIRECTOR OF INSTITUTIONAL SALES Jaqueline Valero MD LAB POCT ORDERABLES - APRIL CE Final Result Performing Organization Address [facility] Co de Phone Number [facility] [address] [facility] [employer] [place] [address] * XR Chest 1 View - Portable - in AM (10/23/2023 6:24 AM DIRECTOR OF INSTITUTIONAL SALES) Anatomical Region Laterality Modality Body, Chest N/A Computed Radiogr aphy 10/23/2023 7:12 AM DIRECTOR OF INSTITUTIONAL SALES Impressions 10/23/2023 7:12 AM DIRECTOR OF INSTITUTIONAL SALES Comparison is made to 10/22/2023. ??There are [...] Manuel Bruno M.D. Narrative 10/23/2023 7:12 AM DIRECTOR OF INSTITUTIONAL SALES Examination: Chest one view Procedure Note Manuel [...] signed by: Manuel Bruno M.D. Byron Olvera BENCH WORKER APPRENTICE IMG XR PROCEDURES Final Result * eGFR (10/23/2023 1:53 AM DIRECTOR OF INSTITUTIONAL SALES) eGFR 5 mL/min/1. 73 m2 [facility] Comment: Interpretive Data Reference Interval [...] last reviewed 2021. Blood 10/23/2023 1:53 AM DIRECTOR OF INSTITUTIONAL SALES 10/23/2023 2:08 AM DIRECTOR OF INSTITUTIONAL SALES Byron Olvera NP LAB BLOOD ORDERABLES Fi nal Result Performing Organization Address [facility] de Phone Number [facility] [address] [place] [address] * (ABNORMAL) Protime-INR (10/23/2023 1:53 AM DIRECTOR OF INSTITUTIONAL SALES) PT 24.9(H) 10.3 - 13.7 sec [facility] INR 2.18(H) 0.90 - 1.20 [facility] Comment: Interpretive data Oral anticoagulant therapeutic ranges: Venous thromboembolism prophylaxis or treatment: 2.0-3.0 CARDIOLOGY Standard range: 2.0-3.0 High-intensity range: 2.5-3.5 Refer to indication-specific guidelines for appropriate target ranges for prosthetic heart valve replacement. Current interpretive data was last revised on 2019. Blood 10/23/2023 1:53 AM DIRECTOR OF INSTITUTIONAL SALES 10/23/2023 2:08 AM DIRECTOR OF INSTITUTIONAL SALES Byron Olvera NP LAB BLOOD ORDERABLES Fi nal Result Performing Organization Address [facility] Co de Phone Number [facility] [address] [facility] [employer] [place], [place] [id number] * Magnesium (10/23/2023 1:53 AM DIRECTOR OF INSTITUTIONAL SALES) Magnesium 2.4 1.4 - 2.5 mg/dL [facility] Blood 10/23/2023 1:53 AM DIRECTOR OF INSTITUTIONAL SALES 10/23/2023 2:08 AM DIRECTOR OF INSTITUTIONAL SALES us Byron Olvera BENCH WORKER APPRENTICE LAB BLOOD ORDERABLES Fi nal Result [facility] [address] Department [place] [address] * (ABNORMAL) Renal function panel (10/23/2023 1:53 AM DIRECTOR OF INSTITUTIONAL SALES) [facility] Sodium 132(L) 135 - 145 mmol/L [facility] Potassium, pl 4.3 3.3 - 4.9 mmol/L [facility] Chloride 91(L) 97 - 110 mmol/L [facility] CO2 20(L) 22 - 32 mmol/L [facility] Anion gap 21(H) 2 - 15 mmol/L [facility] BUN 91(H) 6 - 25 mg/dL [facility] Creatinine 11.59(H) 0.80 - 1.30 mg/dL [facility] Glucose 176 70 - 199 mg/dL [facility] Comment: Interpretive Data Fasting glucose [...] 2022. Calcium 9.0 8.5 - 10.3 mg/dL [facility] Phosphorus, pl 6.2(H) 2.3 - 4.5 mg/dL [facility] Albumin 2.6(L) 3.5 - 5.0 g/dL [facility] Blood 10/23/2023 1:53 AM DIRECTOR OF INSTITUTIONAL SALES 10/23/2023 2:08 AM DIRECTOR OF INSTITUTIONAL SALES Byron Olvera BENCH WORKER APPRENTICE LAB BLOOD ORDERABLES Fi nal Result Performing Organization Address [facility]/ZIP Co de Phone Number [facility] [address] [employer] [place], [place] [id number] * (ABNORMAL) CBC without differential (10/23/2023 1:53 AM DIRECTOR OF INSTITUTIONAL SALES) WBC 11.7(H) 3.8 - 9.9 K/cumm [facility] Hgb 8.5(L) 13.0 - 17.5 g/dL [facility] Hct 27.3(L) 38.9 - 50.3 % [facility] Plt 207 150 - 400 K/cumm [facility] MPV 10.5 9.1 - 12.3 fL [facility] RBC 2.86(L) 4.30 - 5.80 M/cumm [facility] MCV 95.5 81.3 - 96.4 fL [facility] MCH 29.7 27.1 - 33.3 pg [facility] MCHC 31.1(L) 32.3 - 35.7 g/dL [facility] RDW CV 15.9(H) 11.1 - 14.9 % [facility] RDW SD 53.6(H) 35.7 - 48.1 fL [facility] NRBC abs 0.00 0.00 - 0.01 K/cumm [facility] Blood 10/23/2023 1:53 AM DIRECTOR OF INSTITUTIONAL SALES 10/23/2023 2:08 AM DIRECTOR OF INSTITUTIONAL SALES Byron Olvera NP LAB BLOOD ORDERABLES Fi nal Result [facility] [address] [employer] [place], [place] [id number] * (ABNORMAL) POCT glucose (10/22/2023 11:55 PM DIRECTOR OF INSTITUTIONAL SALES) Glucose, POC 142(H) 70 - 140 mg/dL [facility] Comment: For Glucose values <35 mg/dl when Hematocrit is >60 mg/dl,the test may not accurately detect significant hypoglycemia,and testing in the Laboratory should be considered if clinically indicated. Blood 10/22/2023 11:5 5 PM DIRECTOR OF INSTITUTIONAL SALES 10/22/2023 11:55 PM DIRECTOR OF INSTITUTIONAL SALES Jaqueline Valero MD LAB POCT ORDERABLES - APRIL CE Final Result Performing Organization Address [facility] de Phone Number [facility] [address] [place] [place] [address] * (ABNORMAL) POCT glucose (10/22/2023 9:12 PM DIRECTOR OF INSTITUTIONAL SALES) Glucose, POC 161(H) 70 - 140 mg/dL [facility] Comment: For Glucose values <35 mg/dl when Hematocrit is >60 mg/dl,the test may not accurately detect significant hypoglycemia,and testing in the Laboratory should be considered if clinically indicated. Blood 10/22/2023 9:12 PM DIRECTOR OF INSTITUTIONAL SALES 10/22/2023 9:12 PM DIRECTOR OF INSTITUTIONAL SALES Result [facility] Jaqueline Valero MD LAB POCT ORDERABLES - APRIL CE Final Result Performing Organization Address [facility] de Phone Number [facility] [address] [place] [address] * POCT glucose (10/22/2023 5:22 PM DIRECTOR OF INSTITUTIONAL SALES) Glucose, POC 102 70 - 140 mg/dL [facility] Comment: For Glucose values <35 mg/dl when Hematocrit is >60 mg/dl,the test may not accurately detect significant hypoglycemia,and testing in the Laboratory should be considered if clinically indicated. Blood 10/22/2023 5:22 PM DIRECTOR OF INSTITUTIONAL SALES 10/22/2023 5:22 PM DIRECTOR OF INSTITUTIONAL SALES Jaqueline Valero MD LAB POCT ORDERABLES - APRIL CE Final Result Performing Organization Address [facility] de Phone Number [facility] [address] [facility] [employer] [place] [address] * (ABNORMAL) POCT glucose (10/22/2023 12:49 PM DIRECTOR OF INSTITUTIONAL SALES) Glucose, POC 177(H) 70 - 140 mg/dL [facility] Comment: For Glucose values <35 mg/dl when Hematocrit is >60 mg/dl,the test may not accurately detect significant hypoglycemia,and testing in the Laboratory should be considered if clinically indicated. Blood 10/22/2023 12:4 9 PM DIRECTOR OF INSTITUTIONAL SALES 10/22/2023 12:49 PM DIRECTOR OF INSTITUTIONAL SALES Jaqueline Valero MD LAB POCT ORDERABLES - APRIL CE Final Result Performing Organization Address [facility] de Phone Number [facility] [address] [facility] [employer] [place] [address] * (ABNORMAL) POCT glucose (10/22/2023 8:12 AM DIRECTOR OF INSTITUTIONAL SALES) Glucose, POC 158(H) 70 - 140 mg/dL [facility] Comment: For Glucose values <35 mg/dl when Hematocrit is >60 mg/dl,the test may not accurately detect significant hypoglycemia,and testing in the Laboratory should be considered if clinically indicated. Blood 10/22/2023 8:12 AM DIRECTOR OF INSTITUTIONAL SALES 10/22/2023 8:12 AM DIRECTOR OF INSTITUTIONAL SALES Jauqeline Valero MD LAB POCT ORDERABLES - APRIL CE Final Result Performing Organization Address [facility] Co de Phone Number [facility] [address] [place] [address] * XR Chest 1 View - Portable - in AM (10/22/2023 6:38 AM DIRECTOR OF INSTITUTIONAL SALES) Anatomical Region Laterality Modality Body, Chest N/A Computed Radiogr aphy 10/22/2023 8:02 AM DIRECTOR OF INSTITUTIONAL SALES Impressions 10/22/2023 8:02 AM DIRECTOR OF INSTITUTIONAL SALES Comparison is made to single view chest radiograph dated 10/21/2023. ??Sternotomy wires and sternal plates are unchanged. Right internal jugular central venous catheter tip overlies the superior vena cava. Persistent small lung volumes with bilateral subsegmental atelectasis. ??Trace left pleural effusion. ??No pneumothorax. Cardiomediastinal silhouette is stable. Electronically signed by: Tania Malone M.D. Narrative 10/22/2023 8:02 AM DIRECTOR OF INSTITUTIONAL SALES EXAMINATION: 1 view chest radiograph Procedure Note [...] signed by: Tania Malone M.D. Byron Olvera BENCH WORKER APPRENTICE IMG XR PROCEDURES Final Result * eGFR (10/22/2023 12:31 AM DIRECTOR OF INSTITUTIONAL SALES) eGFR 5 mL/min/1. 73 m2 [facility] Comment: Interpretive Data Reference Interval [...] reviewed 2021. Blood 10/22/2023 12:3 1 AM DIRECTOR OF INSTITUTIONAL SALES 10/22/2023 1:00 AM DIRECTOR OF INSTITUTIONAL SALES Byron Olvera NP LAB BLOOD ORDERABLES Fi nal Result Performing Organization Address [facility] Co de Phone Number [facility] [address] [employer] [place] [address] * (ABNORMAL) Protime-INR (10/22/2023 12:31 AM DIRECTOR OF INSTITUTIONAL SALES) PT 48.4(H) 10.3 - 13.7 sec [facility] INR 4.25(H) 0.90 - 1.20 [facility] Comment: Interpretive data Oral anticoagulant therapeutic ranges: Venous thromboembolism prophylaxis or treatment: 2.0-3.0 CARDIOLOGY Standard range: 2.0-3.0 High-intensity range: 2.5-3.5 Refer to indication-specific guidelines for appropriate target ranges for prosthetic heart valve replacement. Current interpretive data was last revised on 2019. Blood 10/22/2023 12:3 1 AM DIRECTOR OF INSTITUTIONAL SALES 10/22/2023 1:00 AM DIRECTOR OF INSTITUTIONAL SALES Byron Olvera NP LAB BLOOD ORDERABLES Fi nal Result Performing Organization Address [facility] Co de Phone Number [facility] [address] [employer] [place] [address] * Magnesium (10/22/2023 12:31 AM DIRECTOR OF INSTITUTIONAL SALES) Magnesium 2.4 1.4 - 2.5 mg/dL [facility] Blood 10/22/2023 12:3 1 AM DIRECTOR OF INSTITUTIONAL SALES 10/22/2023 1:00 AM DIRECTOR OF INSTITUTIONAL SALES Byorn Olvera NP LAB BLOOD ORDERABLES Fi nal Result Performing Organization Address [facility]/ZIP Co de Phone Number [facility] [address] Department [place] [address] * (ABNORMAL) Renal function panel (10/22/2023 12:31 AM DIRECTOR OF INSTITUTIONAL SALES) Sodium 134(L) 135 - 145 mmol/L [facility] Potassium, pl 4.3 3.3 - 4.9 mmol/L [facility] Chloride 93(L) 97 - 110 mmol/L [facility] CO2 21(L) 22 - 32 mmol/L [facility] Anion gap 20(H) 2 - 15 mmol/L [facility] BUN 87(H) 6 - 25 mg/dL [facility] Creatinine 11.33(H) 0.80 - 1.30 mg/dL [facility] Glucose 212(H) 70 - 199 mg/dL [facility] Comment: Interpretive Data Fasting glucose [...] 2022. Calcium 8.8 8.5 - 10.3 mg/dL [facility] Phosphorus, pl 7.3(H) 2.3 - 4.5 mg/dL [facility] Albumin 2.8(L) 3.5 - 5.0 g/dL [facility] Blood 10/22/2023 12:3 1 AM DIRECTOR OF INSTITUTIONAL SALES 10/22/2023 1:00 AM DIRECTOR OF INSTITUTIONAL SALES Byron Olvera NP LAB BLOOD ORDERABLES Fi nal Result Performing Organization Address [facility]/ZIP Co de Phone Number [facility] [address] Department [place] [address] * (ABNORMAL) CBC without differential (10/22/2023 12:31 AM DIRECTOR OF INSTITUTIONAL SALES) [facility] WBC 10.6(H) 3.8 - 9.9 K/cumm [facility] Hgb 8.5(L) 13.0 - 17.5 g/dL [facility] Hct 27.2(L) 38.9 - 50.3 % [facility] Plt 201 150 - 400 K/cumm [facility] MPV 11.2 9.1 - 12.3 fL [facility] RBC 2.88(L) 4.30 - 5.80 M/cumm [facility] MCV 94.4 81.3 - 96.4 fL [facility] MCH 29.5 27.1 - 33.3 pg [facility] MCHC 31.3(L) 32.3 - 35.7 g/dL [facility] RDW CV 15.8(H) 11.1 - 14.9 % [facility] RDW SD 54.0(H) 35.7 - 48.1 fL [facility] NRBC abs 0.02(H) 0.00 - 0.01 K/cumm [facility] Blood 10/22/2023 12:3 1 AM DIRECTOR OF INSTITUTIONAL SALES 10/22/2023 1:00 AM DIRECTOR OF INSTITUTIONAL SALES Byron Olvera NP LAB BLOOD ORDERABLES Fi nal Result [facility] [address] Department [place] [address] * (ABNORMAL) POCT glucose (10/21/2023 9:31 PM DIRECTOR OF INSTITUTIONAL SALES) [facility] Glucose, POC 249(H) 70 - 140 mg/dL [facility] Comment: For Glucose values <35 mg/dl when Hematocrit is >60 mg/dl,the test may not accurately detect significant hypoglycemia,and testing in the Laboratory should be considered if clinically indicated. Blood 10/21/2023 9:31 PM DIRECTOR OF INSTITUTIONAL SALES 10/21/2023 9:31 PM DIRECTOR OF INSTITUTIONAL SALES Jaqueline Valero MD LAB POCT ORDERABLES - APRIL CE Final Result Performing Organization Address [facility] de Phone Number [facility] [address] [facility] [employer] [place] [address] * (ABNORMAL) POCT glucose (10/21/2023 5:16 PM DIRECTOR OF INSTITUTIONAL SALES) Glucose, POC 166(H) 70 - 140 mg/dL [facility] Comment: For Glucose values <35 mg/dl when Hematocrit is >60 mg/dl,the test may not accurately detect significant hypoglycemia,and testing in the Laboratory should be considered if clinically indicated. Blood 10/21/2023 5:16 PM DIRECTOR OF INSTITUTIONAL SALES 10/21/2023 5:16 PM DIRECTOR OF INSTITUTIONAL SALES Jaqueline Valero MD LAB POCT ORDERABLES - APRIL CE Final Result Performing Organization Address [facility] de Phone Number [facility] [address] [facility] [employer] [place] [address] * (ABNORMAL) POCT glucose (10/21/2023 12:29 PM DIRECTOR OF INSTITUTIONAL SALES) Glucose, POC 266(H) 70 - 140 mg/dL [facility] Comment: For Glucose values <35 mg/dl when Hematocrit is >60 mg/dl,the test may not accurately detect significant hypoglycemia,and testing in the Laboratory should be considered if clinically indicated. Blood 10/21/2023 12:2 9 PM DIRECTOR OF INSTITUTIONAL SALES 10/21/2023 12:29 PM DIRECTOR OF INSTITUTIONAL SALES Jaqueline Valero MD LAB POCT ORDERABLES - APRIL CE Final Result Performing Organization Address [facility] de Phone Number [facility] [address] Department [employer] [place] [address] * (ABNORMAL) POCT glucose (10/21/2023 8:06 AM DIRECTOR OF INSTITUTIONAL SALES) Glucose, POC 294(H) 70 - 140 mg/dL [facility] Comment: For Glucose values <35 mg/dl when Hematocrit is >60 mg/dl,the test may not accurately detect significant hypoglycemia,and testing in the Laboratory should be considered if clinically indicated. Blood 10/21/2023 8:06 AM DIRECTOR OF INSTITUTIONAL SALES 10/21/2023 8:06 AM DIRECTOR OF INSTITUTIONAL SALES us Jaqueline Valero MD LAB POCT ORDERABLES - APRIL CE Final Result [facility] [address] Department [place] [address] * XR Chest 1 View - Portable - in AM (10/21/2023 6:51 AM DIRECTOR OF INSTITUTIONAL SALES) Anatomical Region Laterality Modality Body, Chest N/A Computed Radiogr aphy 10/21/2023 7:17 AM DIRECTOR OF INSTITUTIONAL SALES Impressions 10/21/2023 7:17 AM DIRECTOR OF INSTITUTIONAL SALES Small left effusion and bilateral lower lobe atelectasis. Electronically signed by: Eric Cuevas M.D. Narrative 10/21/2023 7:17 AM DIRECTOR OF INSTITUTIONAL SALES EXAMINATION: XR CHEST 1 VIEW DATE: 10/21/2023 [...] by: Eric Cuevas M.D. us Byron Olvera BENCH WORKER APPRENTICE IMG XR PROCEDURES Final Result * ECG 12 lead (10/21/2023 4:39 AM DIRECTOR OF INSTITUTIONAL SALES) 10/21/2023 4:39 AM DIRECTOR OF INSTITUTIONAL SALES Narrative [facility] - 10/21/2023 8:34 AM DIRECTOR OF INSTITUTIONAL SALES Vent Rate: 100 bpm RR Interval: 599 msec MO Interval: 0 msec QRS Duration: 145 msec QT Interval: 394 msec QTC Interval: 451 msec P-R-T [place]: 0 - -9 - 132 degrees IMPRESSION: NORMAL SINUS RHYTHM [REASON: NORMAL P AXIS, MO, RATE \T\ RHYTHM] LEFT BUNDLE BRANCH BLOCK OCCASIONAL PVC Electronically Signed By: Jesus Huerta MD us Linda Oliva NP ECG ORDERABLES Final Result [facility] * eGFR (10/21/2023 1:40 AM DIRECTOR OF INSTITUTIONAL SALES) eGFR 5 mL/min/1. 73 m2 ALESSANDRA SINGING [...] last reviewed 2021. Blood 10/21/2023 1:40 AM DIRECTOR OF INSTITUTIONAL SALES 10/21/2023 1:59 AM DIRECTOR OF INSTITUTIONAL SALES Byron Olvera NP LAB BLOOD ORDERABLES Fi nal Result Performing Organization Address [facility] de Phone Number [facility] [address] Department [place] [address] * (ABNORMAL) Protime-INR (10/21/2023 1:40 AM DIRECTOR OF INSTITUTIONAL SALES) PT 54.3(H) 10.3 - 13.7 sec [facility] INR 4.76(H) 0.90 - 1.20 [facility] Comment: Interpretive data Oral anticoagulant therapeutic ranges: Venous thromboembolism prophylaxis or treatment: 2.0-3.0 CARDIOLOGY Standard range: 2.0-3.0 High-intensity range: 2.5-3.5 Refer to indication-specific guidelines for appropriate target ranges for prosthetic heart valve replacement. Current interpretive data was last revised on 2019. Blood 10/21/2023 1:40 AM DIRECTOR OF INSTITUTIONAL SALES 10/21/2023 1:58 AM DIRECTOR OF INSTITUTIONAL SALES Byron Olvera NP LAB BLOOD ORDERABLES Fi nal Result Performing Organization Address [facility] Co de Phone Number [facility] [address] Department [place] [address] * Magnesium (10/21/2023 1:40 AM DIRECTOR OF INSTITUTIONAL SALES) Magnesium 2.4 1.4 - 2.5 mg/dL [facility] Blood 10/21/2023 1:40 AM DIRECTOR OF INSTITUTIONAL SALES 10/21/2023 1:59 AM DIRECTOR OF INSTITUTIONAL SALES Byron Olvera NP LAB BLOOD ORDERABLES Fi nal Result Performing Organization Address City/[facility]/ZIP Co de Phone Number [facility] [address] [place] [address] * (ABNORMAL) Renal function panel (10/21/2023 1:40 AM DIRECTOR OF INSTITUTIONAL SALES) Sodium 134(L) 135 - 145 mmol/L [facility] Potassium, pl 4.5 3.3 - 4.9 mmol/L [facility] Chloride 93(L) 97 - 110 mmol/L [facility] CO2 22 22 - 32 mmol/L [facility] Anion gap 19(H) 2 - 15 mmol/L [facility] BUN 81(H) 6 - 25 mg/dL [facility] Creatinine 11.40(H) 0.80 - 1.30 mg/dL [facility] Glucose 289(H) 70 - 199 mg/dL [facility] Comment: Interpretive Data Fasting glucose [...] 2022. Calcium 8.6 8.5 - 10.3 mg/dL [facility] Phosphorus, pl 8.2(H) 2.3 - 4.5 mg/dL [facility] Albumin 2.7(L) 3.5 - 5.0 g/dL [facility] Blood 10/21/2023 1:40 AM DIRECTOR OF INSTITUTIONAL SALES 10/21/2023 1:59 AM DIRECTOR OF INSTITUTIONAL SALES Byron Olvera NP LAB BLOOD ORDERABLES Fi nal Result Performing Organization Address City/[facility]/ZIP Co de Phone Number [facility] [address] [place] [address] * (ABNORMAL) CBC without differential (10/21/2023 1:40 AM DIRECTOR OF INSTITUTIONAL SALES) [facility] WBC 8.2 3.8 - 9.9 K/cumm [facility] Hgb 8.0(L) 13.0 - 17.5 g/dL [facility] Hct 25.6(L) 38.9 - 50.3 % [facility] Plt 185 150 - 400 K/cumm [facility] MPV 11.1 9.1 - 12.3 fL [facility] RBC 2.72(L) 4.30 - 5.80 M/cumm [facility] MCV 94.1 81.3 - 96.4 fL [facility] MCH 29.4 27.1 - 33.3 pg [facility] MCHC 31.3(L) 32.3 - 35.7 g/dL [facility] RDW CV 16.5(H) 11.1 - 14.9 % [facility] RDW SD 55.9(H) 35.7 - 48.1 fL [facility] NRBC abs 0.02(H) 0.00 - 0.01 K/cumm [facility] Blood 10/21/2023 1:40 AM DIRECTOR OF INSTITUTIONAL SALES 10/21/2023 1:59 AM DIRECTOR OF INSTITUTIONAL SALES Byron Olvera NP LAB BLOOD ORDERABLES Fi nal Result [facility] [address] Department [place] [address] * (ABNORMAL) POCT glucose (10/20/2023 9:24 PM DIRECTOR OF INSTITUTIONAL SALES) [facility] Glucose, POC 234(H) 70 - 140 mg/dL [facility] Comment: For Glucose values <35 mg/dl when Hematocrit is >60 mg/dl,the test may not accurately detect significant hypoglycemia,and testing in the Laboratory should be considered if clinically indicated. Blood 10/20/2023 9:24 PM DIRECTOR OF INSTITUTIONAL SALES 10/20/2023 9:24 PM DIRECTOR OF INSTITUTIONAL SALES us Jaqueline Valero MD LAB POCT ORDERABLES - APRIL CE Final Result Performing Organization Address [facility] Co de Phone Number [facility] [address] [facility] [employer] [place] [address] * POCT glucose (10/20/2023 5:24 PM DIRECTOR OF INSTITUTIONAL SALES) [facility] Signature Glucose, POC 89 70 - 140 mg/dL [facility] Comment: For Glucose values <35 mg/dl when Hematocrit is >60 mg/dl,the test may not accurately detect significant hypoglycemia,and testing in the Laboratory should be considered if clinically indicated. Blood 10/20/2023 5:24 PM DIRECTOR OF INSTITUTIONAL SALES 10/20/2023 5:24 PM DIRECTOR OF INSTITUTIONAL SALES us Jaqueline Valero MD LAB POCT ORDERABLES - APRIL CE Final Result Performing Organization Address [facility] Co de Phone Number [facility] [address] Department [place] [employer] [place] [address] * Critical Care (10/20/2023 12:45 PM DIRECTOR OF INSTITUTIONAL SALES) Narrative Kirsten Burns MD - 10/20/2023 12:45 PM DIRECTOR OF INSTITUTIONAL SALES Byron Olvera NP ? 10/21/2023 10:22 AM [...] plan with the patient's team and other medical/building energy consultant staff. This time was in addition to and separate from care provided by other practitioners on this day of service. ?? Byron Olvera NP IN CLINIC/BEDSIDE ORDER ROVERTO Final Result * POCT glucose (10/20/2023 11:47 AM DIRECTOR OF INSTITUTIONAL SALES) Glucose, POC 115 70 - 140 mg/dL [facility] Comment: For Glucose values <35 mg/dl when Hematocrit is >60 mg/dl,the test may not accurately detect significant hypoglycemia,and testing in the Laboratory should be considered if clinically indicated. Blood 10/20/2023 11:4 7 AM DIRECTOR OF INSTITUTIONAL SALES 10/20/2023 11:47 AM DIRECTOR OF INSTITUTIONAL SALES Result [facility] Jaqueline Valero MD LAB POCT ORDERABLES - APRIL CE Final Result Performing Organization Address [facility] de Phone Number [facility] [address] [facility] [employer] [place] [address] * POCT glucose (10/20/2023 10:09 AM DIRECTOR OF INSTITUTIONAL SALES) Glucose, POC 87 70 - 140 mg/dL [facility] Comment: For Glucose values <35 mg/dl when Hematocrit is >60 mg/dl,the test may not accurately detect significant hypoglycemia,and testing in the Laboratory should be considered if clinically indicated. Blood 10/20/2023 10:0 9 AM DIRECTOR OF INSTITUTIONAL SALES 10/20/2023 10:09 AM DIRECTOR OF INSTITUTIONAL SALES Result [facility] Jaqueline Valero MD LAB POCT ORDERABLES - APRIL CE Final Result Performing Organization Address [facility] de Phone Number [facility] [address] [facility] [employer] [place] [address] * POCT glucose (10/20/2023 9:15 AM DIRECTOR OF INSTITUTIONAL SALES) Glucose, POC 102 70 - 140 mg/dL [facility] Comment: For Glucose values <35 mg/dl when Hematocrit is >60 mg/dl,the test may not accurately detect significant hypoglycemia,and testing in the Laboratory should be considered if clinically indicated. Blood 10/20/2023 9:15 AM DIRECTOR OF INSTITUTIONAL SALES 10/20/2023 9:15 AM DIRECTOR OF INSTITUTIONAL SALES Result [facility] Jaqueline Valero MD LAB POCT ORDERABLES - APRIL CE Final Result Performing Organization Address [facility] Co de Phone Number [facility] [address] [facility] [employer] [place] [address] * POCT glucose (10/20/2023 7:23 AM DIRECTOR OF INSTITUTIONAL SALES) Glucose, POC 109 70 - 140 mg/dL [facility] Comment: For Glucose values <35 mg/dl when Hematocrit is >60 mg/dl,the test may not accurately detect significant hypoglycemia,and testing in the Laboratory should be considered if clinically indicated. Blood 10/20/2023 7:23 AM DIRECTOR OF INSTITUTIONAL SALES 10/20/2023 7:23 AM DIRECTOR OF INSTITUTIONAL SALES Jaqueline Valero MD LAB POCT ORDERABLES - APRIL CE Final Result Performing Organization Address [facility] Co de Phone Number [facility] [address] Department [place] [address] * XR Chest 1 View - Portable - in AM (10/20/2023 6:37 AM DIRECTOR OF INSTITUTIONAL SALES) Anatomical Region Laterality Modality Body, Chest N/A Computed Radiogr aphy 10/20/2023 7:51 AM DIRECTOR OF INSTITUTIONAL SALES Impressions 10/20/2023 7:51 AM DIRECTOR OF INSTITUTIONAL SALES Comparison is made to prior chest radiograph(s) [...] Vicki Suh M.D. Narrative 10/20/2023 7:51 AM DIRECTOR OF INSTITUTIONAL SALES EXAMINATION: XR CHEST 1 VIEW Procedure Note [...] signed by: Vicki Suh M.D. Byron Olvera BENCH WORKER APPRENTICE IMG XR PROCEDURES Final Result * POCT glucose (10/20/2023 6:12 AM DIRECTOR OF INSTITUTIONAL SALES) Glucose, POC 119 70 - 140 mg/dL [facility] Comment: For Glucose values <35 mg/dl when Hematocrit is >60 mg/dl,the test may not accurately detect significant hypoglycemia,and testing in the Laboratory should be considered if clinically indicated. Blood 10/20/2023 6:12 AM DIRECTOR OF INSTITUTIONAL SALES 10/20/2023 6:12 AM DIRECTOR OF INSTITUTIONAL SALES Jaqueline Valero MD LAB POCT ORDERABLES - APRIL CE Final Result Performing Organization Address [facility] Co de Phone Number [facility] [address] [employer] [place], [place] [id number] * (ABNORMAL) POCT glucose (10/20/2023 3:57 AM DIRECTOR OF INSTITUTIONAL SALES) Glucose, POC 153(H) 70 - 140 mg/dL [facility] Comment: For Glucose values <35 mg/dl when Hematocrit is >60 mg/dl,the test may not accurately detect significant hypoglycemia,and testing in the Laboratory should be considered if clinically indicated. Blood 10/20/2023 3:57 AM DIRECTOR OF INSTITUTIONAL SALES 10/20/2023 3:57 AM DIRECTOR OF INSTITUTIONAL SALES Result [facility] Jaqueline Valero MD LAB POCT ORDERABLES - APRIL CE Final Result Performing Organization Address [facility] Co de Phone Number [facility] [address] Department [place] [address] * Oxyhemoglobin, central venous (10/20/2023 3:22 AM DIRECTOR OF INSTITUTIONAL SALES) Pathologist [facility] Oxyhemoglobin, CV 70.0 % [facility] Comment: Interpretive Data No reference range established. Current interpretive data was last revised 2019. Blood 10/20/2023 3:22 AM DIRECTOR OF INSTITUTIONAL SALES 10/20/2023 3:26 AM DIRECTOR OF INSTITUTIONAL SALES Gamal Fox BENCH WORKER APPRENTICE LAB BLOOD ORDERABLES Final Result Performing Organization Address [facility] Co de Phone Number [facility] [address] Department [place] [address] * (ABNORMAL) aPTT (10/20/2023 3:22 AM DIRECTOR OF INSTITUTIONAL SALES) [facility] aPTT 114(H) 28 - 38 sec [facility] Comment: Interpretive Data Heparin therapeutic range: 66.0 - 100.0 seconds. Range based on correlation with therapeutic heparin activity range of 0.3 - 0.7 Units/mL. Current interpretive data was last revised on 2023. Blood 10/20/2023 3:22 AM DIRECTOR OF INSTITUTIONAL SALES 10/20/2023 3:28 AM DIRECTOR OF INSTITUTIONAL SALES Narrative [facility] - 10/20/2023 4:12 AM DIRECTOR OF INSTITUTIONAL SALES Draw STAT PTT 6 hrs after initiation of heparin infusion, draw STAT PTT 6 hours after each dose change, and every 6 hours until 2 consecutive PTTs are within therapeutic range. Once two consecutive PTT's are therapeutic (66-100 seconds), then draw PTT every AM until heparin is discontinued. Byron Olvera BENCH WORKER APPRENTICE LAB BLOOD ORDERABLES Fi nal Result Performing Organization Address [facility] Co de Phone Number [facility] [address] Department [employer] [place], [place] [id number] * (ABNORMAL) POCT glucose (10/20/2023 3:21 AM DIRECTOR OF INSTITUTIONAL SALES) Pathologist [facility] Glucose, POC 156(H) 70 - 140 mg/dL [facility] Comment: For Glucose values <35 mg/dl when Hematocrit is >60 mg/dl,the test may not accurately detect significant hypoglycemia,and testing in the Laboratory should be considered if clinically indicated. Blood 10/20/2023 3:21 AM DIRECTOR OF INSTITUTIONAL SALES 10/20/2023 3:21 AM DIRECTOR OF INSTITUTIONAL SALES Jaqueline Valero MD LAB POCT ORDERABLES - APRIL CE Final Result Performing Organization Address [facility] Co de Phone Number [facility] [address] [place] [address] * (ABNORMAL) POCT glucose (10/20/2023 2:10 AM DIRECTOR OF INSTITUTIONAL SALES) Glucose, POC 164(H) 70 - 140 mg/dL [facility] Comment: For Glucose values <35 mg/dl when Hematocrit is >60 mg/dl,the test may not accurately detect significant hypoglycemia,and testing in the Laboratory should be considered if clinically indicated. Blood 10/20/2023 2:10 AM DIRECTOR OF INSTITUTIONAL SALES 10/20/2023 2:10 AM DIRECTOR OF INSTITUTIONAL SALES Result [facility] Jaqueline Valero MD LAB POCT ORDERABLES - APRIL CE Final Result Performing Organization Address [facility] de Phone Number [facility] [address] [place] [address] * POCT glucose (10/20/2023 12:57 AM DIRECTOR OF INSTITUTIONAL SALES) Glucose, POC 119 70 - 140 mg/dL [facility] Comment: For Glucose values <35 mg/dl when Hematocrit is >60 mg/dl,the test may not accurately detect significant hypoglycemia,and testing in the Laboratory should be considered if clinically indicated. Blood 10/20/2023 12:5 7 AM DIRECTOR OF INSTITUTIONAL SALES 10/20/2023 12:57 AM DIRECTOR OF INSTITUTIONAL SALES Jaqueline Valero MD LAB POCT ORDERABLES - APRIL CE Final Result Performing Organization Address [facility] Co de Phone Number [facility] [address] [place] [address] * eGFR (10/20/2023 12:21 AM DIRECTOR OF INSTITUTIONAL SALES) eGFR 5 mL/min/1. 73 m2 ALESSANDRA SINGING [...] reviewed 2021. Blood 10/20/2023 12:2 1 AM DIRECTOR OF INSTITUTIONAL SALES 10/20/2023 12:43 AM DIRECTOR OF INSTITUTIONAL SALES us Dawna Castellanos BENCH WORKER APPRENTICE LAB BLOOD ORDERABLES Ann Marie l Result [facility] [address] Department [place] [address] * Oxyhemoglobin, central venous (10/20/2023 12:21 AM DIRECTOR OF INSTITUTIONAL SALES) Oxyhemoglobin, CV 51.0 % [facility] Comment: Interpretive Data No reference range established. Current interpretive data was last revised 2019. Blood 10/20/2023 12:2 1 AM DIRECTOR OF INSTITUTIONAL SALES 10/20/2023 12:35 AM DIRECTOR OF INSTITUTIONAL SALES Dawna Castellanos BENCH WORKER APPRENTICE LAB BLOOD ORDERABLES Ann Marie l Result [facility] [address] [facility] [place] [address] * (ABNORMAL) Protime-INR (10/20/2023 12:21 AM DIRECTOR OF INSTITUTIONAL SALES) PT 25.5(H) 10.3 - 13.7 sec [facility] INR 2.24(H) 0.90 - 1.20 [facility] Comment: Interpretive data Oral anticoagulant therapeutic ranges: Venous thromboembolism prophylaxis or treatment: 2.0-3.0 CARDIOLOGY Standard range: 2.0-3.0 High-intensity range: 2.5-3.5 Refer to indication-specific guidelines for appropriate target ranges for prosthetic heart valve replacement. Current interpretive data was last revised on 2019. Blood 10/20/2023 12:2 1 AM DIRECTOR OF INSTITUTIONAL SALES 10/20/2023 12:43 AM DIRECTOR OF INSTITUTIONAL SALES Byron Olvera BENCH WORKER APPRENTICE LAB BLOOD ORDERABLES Fi nal Result Performing Organization Address [facility] Co de Phone Number [facility] [address] [facility] [employer] [place] [address] * Magnesium (10/20/2023 12:21 AM DIRECTOR OF INSTITUTIONAL SALES) Pathologist [facility] Magnesium 2.4 1.4 - 2.5 mg/dL [facility] Blood 10/20/2023 12:2 1 AM DIRECTOR OF INSTITUTIONAL SALES 10/20/2023 12:43 AM DIRECTOR OF INSTITUTIONAL SALES Byron Olvera BENCH WORKER APPRENTICE LAB BLOOD ORDERABLES Fi nal Result Performing Organization Address City/[facility]/ZIP Co de Phone Number [facility] [address] Department [place] [address] * (ABNORMAL) Calcium, ionized (10/20/2023 12:21 AM DIRECTOR OF INSTITUTIONAL SALES) Calcium, Ionized 4.38(L) 4.50 - 5.10 mg/dL [facility] Blood 10/20/2023 12:2 1 AM DIRECTOR OF INSTITUTIONAL SALES 10/20/2023 12:35 AM DIRECTOR OF INSTITUTIONAL SALES us Byron Olvera BENCH WORKER APPRENTICE LAB BLOOD ORDERABLES nal Result [facility] [address] Department [place] [address] * (ABNORMAL) Renal function panel (10/20/2023 12:21 AM DIRECTOR OF INSTITUTIONAL SALES) Pathologist [facility] Sodium 137 135 - 145 mmol/L [facility] Potassium, pl 4.4 3.3 - 4.9 mmol/L [facility] Chloride 96(L) 97 - 110 mmol/L [facility] CO2 21(L) 22 - 32 mmol/L [facility] Anion gap 20(H) 2 - 15 mmol/L [facility] BUN 77(H) 6 - 25 mg/dL [facility] Creatinine 11.28(H) 0.80 - 1.30 mg/dL [facility] Glucose 105 70 - 199 mg/dL [facility] Comment: Interpretive Data Fasting glucose [...] 2022. Calcium 8.9 8.5 - 10.3 mg/dL [facility] Phosphorus, pl 8.9(H) 2.3 - 4.5 mg/dL [facility] Albumin 2.8(L) 3.5 - 5.0 g/dL [facility] Blood 10/20/2023 12:2 1 AM DIRECTOR OF INSTITUTIONAL SALES 10/20/2023 12:43 AM DIRECTOR OF INSTITUTIONAL SALES Byron Olvera NP LAB BLOOD ORDERABLES Fi nal Result Performing Organization Address [facility] Co de Phone Number [facility] [address] [place] [address] * (ABNORMAL) CBC without differential (10/20/2023 12:21 AM DIRECTOR OF INSTITUTIONAL SALES) [facility] WBC 8.8 3.8 - 9.9 K/cumm [facility] Hgb 8.3(L) 13.0 - 17.5 g/dL [facility] Hct 26.2(L) 38.9 - 50.3 % [facility] Plt 149(L) 150 - 400 K/cumm [facility] MPV 11.1 9.1 - 12.3 fL [facility] RBC 2.76(L) 4.30 - 5.80 M/cumm [facility] MCV 94.9 81.3 - 96.4 fL [facility] MCH 30.1 27.1 - 33.3 pg [facility] MCHC 31.7(L) 32.3 - 35.7 g/dL [facility] RDW CV 16.5(H) 11.1 - 14.9 % [facility] RDW SD 56.3(H) 35.7 - 48.1 fL [facility] NRBC abs 0.00 0.00 - 0.01 K/cumm [facility] Blood 10/20/2023 12:2 1 AM DIRECTOR OF INSTITUTIONAL SALES 10/20/2023 12:43 AM DIRECTOR OF INSTITUTIONAL SALES Byron Olvera NP LAB BLOOD ORDERABLES Fi nal Result Performing Organization Address City/[facility]/ZIP Co de Phone Number [facility] [address] Department [employer] [place], [place] [id number] * POCT glucose (10/20/2023 12:20 AM DIRECTOR OF INSTITUTIONAL SALES) Glucose, POC 111 70 - 140 mg/dL [facility] Comment: For Glucose values <35 mg/dl when Hematocrit is >60 mg/dl,the test may not accurately detect significant hypoglycemia,and testing in the Laboratory should be considered if clinically indicated. Blood 10/20/2023 12:2 0 AM DIRECTOR OF INSTITUTIONAL SALES 10/20/2023 12:20 AM DIRECTOR OF INSTITUTIONAL SALES Jaqueline Valero MD LAB POCT ORDERABLES - APRIL CE Final Result Performing Organization Address [facility] de Phone Number [facility] [address] [place] [address] * POCT glucose (10/19/2023 11:03 PM DIRECTOR OF INSTITUTIONAL SALES) Glucose, POC 111 70 - 140 mg/dL [facility] Comment: For Glucose values <35 mg/dl when Hematocrit is >60 mg/dl,the test may not accurately detect significant hypoglycemia,and testing in the Laboratory should be considered if clinically indicated. Blood 10/19/2023 11:0 3 PM DIRECTOR OF INSTITUTIONAL SALES 10/19/2023 11:03 PM DIRECTOR OF INSTITUTIONAL SALES Jaqueline Valero MD LAB POCT ORDERABLES - APRIL CE Final Result Performing Organization Address [facility] de Phone Number [facility] [address] [place] [address] * POCT glucose (10/19/2023 10:01 PM DIRECTOR OF INSTITUTIONAL SALES) Glucose, POC 120 70 - 140 mg/dL [facility] Comment: For Glucose values <35 mg/dl when Hematocrit is >60 mg/dl,the test may not accurately detect significant hypoglycemia,and testing in the Laboratory should be considered if clinically indicated. Blood 10/19/2023 10:0 1 PM DIRECTOR OF INSTITUTIONAL SALES 10/19/2023 10:01 PM DIRECTOR OF INSTITUTIONAL SALES Jaqueline Valero MD LAB POCT ORDERABLES - APRIL CE Final Result Performing Organization Address [facility]/State/ZIP Co de Phone Number [facility] [address] [facility] [place] [address] * (ABNORMAL) aPTT (10/19/2023 9:47 PM DIRECTOR OF INSTITUTIONAL SALES) Pathologist [facility] aPTT 94(H) 28 - 38 sec [facility] Comment: Interpretive Data Heparin therapeutic range: 66.0 - 100.0 seconds. Range based on correlation with therapeutic heparin activity range of 0.3 - 0.7 Units/mL. Current interpretive data was last revised on 2023. Blood 10/19/2023 9:47 PM DIRECTOR OF INSTITUTIONAL SALES 10/19/2023 9:54 PM DIRECTOR OF INSTITUTIONAL SALES Narrative [facility] - 10/19/2023 10:17 PM DIRECTOR OF INSTITUTIONAL SALES Draw STAT PTT 6 hrs after initiation of heparin infusion, draw STAT PTT 6 hours after each dose change, and every 6 hours until 2 consecutive PTTs are within therapeutic range. Once two consecutive PTT's are therapeutic (66-100 seconds), then draw PTT every AM until heparin is discontinued. us Byron Olvera NP LAB BLOOD ORDERABLES Fi nal Result Performing Organization Address [facility] Co de Phone Number [facility] [address] [place] [place] [address] * (ABNORMAL) POCT glucose (10/19/2023 9:15 PM DIRECTOR OF INSTITUTIONAL SALES) [facility] Glucose, POC 143(H) 70 - 140 mg/dL [facility] Comment: For Glucose values <35 mg/dl when Hematocrit is >60 mg/dl,the test may not accurately detect significant hypoglycemia,and testing in the Laboratory should be considered if clinically indicated. Blood 10/19/2023 9:15 PM DIRECTOR OF INSTITUTIONAL SALES 10/19/2023 9:15 PM DIRECTOR OF INSTITUTIONAL SALES Jaqueline Valero MD LAB POCT ORDERABLES - APRIL CE Final Result Performing Organization Address [facility] Co de Phone Number [facility] [address] [facility] [place] [address] * (ABNORMAL) POCT glucose (10/19/2023 8:12 PM DIRECTOR OF INSTITUTIONAL SALES) Glucose, POC 156(H) 70 - 140 mg/dL [facility] Comment: For Glucose values <35 mg/dl when Hematocrit is >60 mg/dl,the test may not accurately detect significant hypoglycemia,and testing in the Laboratory should be considered if clinically indicated. Blood 10/19/2023 8:12 PM DIRECTOR OF INSTITUTIONAL SALES 10/19/2023 8:12 PM DIRECTOR OF INSTITUTIONAL SALES Jaqueline Valero MD LAB POCT ORDERABLES - APRIL CE Final Result Performing Organization Address [facility] Co de Phone Number [facility] [address] [facility] [place] [address] * POCT glucose (10/19/2023 6:13 PM DIRECTOR OF INSTITUTIONAL SALES) Glucose, POC 94 70 - 140 mg/dL [facility] Comment: For Glucose values <35 mg/dl when Hematocrit is >60 mg/dl,the test may not accurately detect significant hypoglycemia,and testing in the Laboratory should be considered if clinically indicated. Blood 10/19/2023 6:13 PM DIRECTOR OF INSTITUTIONAL SALES 10/19/2023 6:13 PM DIRECTOR OF INSTITUTIONAL SALES Jaqueline Valero MD LAB POCT ORDERABLES - APRIL CE Final Result Performing Organization Address [facility] Co de Phone Number [facility] [address] [facility] [place] [address] * POCT glucose (10/19/2023 5:24 PM DIRECTOR OF INSTITUTIONAL SALES) Glucose, POC 90 70 - 140 mg/dL [facility] Comment: For Glucose values <35 mg/dl when Hematocrit is >60 mg/dl,the test may not accurately detect significant hypoglycemia,and testing in the Laboratory should be considered if clinically indicated. Blood 10/19/2023 5:24 PM DIRECTOR OF INSTITUTIONAL SALES 10/19/2023 5:24 PM DIRECTOR OF INSTITUTIONAL SALES us Jaqueline Valero MD LAB POCT ORDERABLES - APRIL CE Final Result [facility] [address] Department [place] [address] * XR Chest 1 View (10/19/2023 4:29 PM DIRECTOR OF INSTITUTIONAL SALES) Anatomical Region Laterality Modality Body, Chest N/A Computed Radiogr aphy 10/19/2023 4:32 PM DIRECTOR OF INSTITUTIONAL SALES Impressions 10/19/2023 4:32 PM DIRECTOR OF INSTITUTIONAL SALES Comparison made to radiograph 10/19/2023. Right internal [...] Trace Barrow M.D. Narrative 10/19/2023 4:32 PM DIRECTOR OF INSTITUTIONAL SALES EXAMINATION: XR CHEST 1 VIEW HISTORY: ??Chest [...] signed by: Trace Barrow M.D. Dawna Castellanos BENCH WORKER APPRENTICE IMG XR PROCEDURES Final R esult * POCT glucose (10/19/2023 4:25 PM DIRECTOR OF INSTITUTIONAL SALES) Glucose, POC 113 70 - 140 mg/dL [facility] Comment: For Glucose values <35 mg/dl when Hematocrit is >60 mg/dl,the test may not accurately detect significant hypoglycemia,and testing in the Laboratory should be considered if clinically indicated. Blood 10/19/2023 4:25 PM DIRECTOR OF INSTITUTIONAL SALES 10/19/2023 4:25 PM DIRECTOR OF INSTITUTIONAL SALES Jaqueline Valero MD LAB POCT ORDERABLES - APRIL CE Final Result Performing Organization Address [facility] de Phone Number [facility] [address] Department [place] [address] * ECG 12 lead (10/19/2023 3:21 PM DIRECTOR OF INSTITUTIONAL SALES) 10/19/2023 3:21 PM DIRECTOR OF INSTITUTIONAL SALES Narrative [facility] - 10/20/2023 9:37 AM DIRECTOR OF INSTITUTIONAL SALES Vent Rate: 78 bpm RR Interval: 769 msec [place] Interval: 264 msec QRS Duration: 145 msec QT Interval: 426 msec QTC Interval: 459 msec P-R-T [place]: 47 - -19 - 115 degrees IMPRESSION: PROBABLE SINUS RHYTHM WITH FIRST DEGREE AV BLOCK FREQUENT SUPRAVENTRICULAR PREMATURE COMPLEXES IN A BIGEMINAL PATTERN INTRAVENTRICULAR CONDUCTION DELAY NONSPECIFIC T-WAVE CHANGES ABNORMAL ECG Electronically Signed By: Abelardo Randle MD Dawna Castellanos BENCH WORKER APPRENTICE ECG ORDERABLES Final Res ult Performing Organization Address [facility] de Phone Number [facility] [employer] [facility] * XR Kub (10/19/2023 2:49 PM DIRECTOR OF INSTITUTIONAL SALES) Anatomical Region Laterality Modality Body, Abdomen N/A Computed Radiogr aphy 10/19/2023 3:00 PM DIRECTOR OF INSTITUTIONAL SALES Impressions 10/19/2023 3:00 PM DIRECTOR OF INSTITUTIONAL SALES FINDINGS/IMPRESSION: Postsurgical changes in the chest. ??Epicardial pacer wires overlie the abdomen and chest. ??Chest tube/mediastinal drains overlie the abdomen. ??Nguyen catheter superimposes the expected location of the urinary bladder. There is no dilatation of small or large bowel seen, although exam is limited secondary to body habitus. Electronically signed by: DO Luis Parker 10/19/2023 3:00 PM DIRECTOR OF INSTITUTIONAL SALES EXAM: ??XR KUB, 10/19/2023 1:50 PM HISTORY: [...] Result * (ABNORMAL) aPTT (10/19/2023 2:44 PM DIRECTOR OF INSTITUTIONAL SALES) aPTT 59(H) 28 - 38 sec [facility] Comment: Interpretive Data Heparin therapeutic range: 66.0 - 100.0 seconds. Range based on correlation with therapeutic heparin activity range of 0.3 - 0.7 Units/mL. Current interpretive data was last revised on 2023. Blood 10/19/2023 2:44 PM DIRECTOR OF INSTITUTIONAL SALES 10/19/2023 2:48 PM DIRECTOR OF INSTITUTIONAL SALES Narrative [facility] - 10/19/2023 3:02 PM DIRECTOR OF INSTITUTIONAL SALES Draw STAT PTT 6 hrs after initiation of heparin infusion, draw STAT PTT 6 hours after each dose change, and every 6 hours until 2 consecutive PTTs are within therapeutic range. Once two consecutive PTT's are therapeutic (66-100 seconds), then draw PTT every AM until heparin is discontinued. Byron Olvera NP LAB BLOOD ORDERABLES [facility] Result [facility] [address] [place] [address] * (ABNORMAL) Hepatic function panel (10/19/2023 2:44 PM DIRECTOR OF INSTITUTIONAL SALES) Pathologist [facility] Bilirubin, total 0.3 0.1 - 1.2 mg/dL [facility] Bilirubin, direct <0.2 0.1 - 0.3 mg/dL [facility] Protein, pl 5.2(L) 6.5 - 8.5 g/dL [facility] Albumin 3.0(L) 3.5 - 5.0 g/dL [facility] Alk phos 104 40 - 130 Units/L [facility] ALT 9 7 - 55 Units/L [facility] AST 39 10 - 50 Units/L [facility] Blood 10/19/2023 2:44 PM DIRECTOR OF INSTITUTIONAL SALES 10/19/2023 2:48 PM DIRECTOR OF INSTITUTIONAL SALES Kirsten Burns MD LAB BLOOD ORDERABLES Fin al Result Performing Organization Address [facility] Co de Phone Number [facility] [address] [facility] [place] [address] * (ABNORMAL) Lipase (10/19/2023 2:44 PM DIRECTOR OF INSTITUTIONAL SALES) [facility] Lipase 7(L) 10 - 99 Units/L [facility] Blood 10/19/2023 2:44 PM DIRECTOR OF INSTITUTIONAL SALES 10/19/2023 2:48 PM DIRECTOR OF INSTITUTIONAL SALES Result [facility] Kirsten Burns MD LAB BLOOD ORDERABLES Fin al Result Performing Organization Address [facility] Co de Phone Number [facility] [address] [facility] [place] [address] * (ABNORMAL) Amylase (10/19/2023 2:44 PM DIRECTOR OF INSTITUTIONAL SALES) [facility] Amylase <3(L) 30 - 99 Units/L [facility] Blood 10/19/2023 2:44 PM DIRECTOR OF INSTITUTIONAL SALES 10/19/2023 2:48 PM DIRECTOR OF INSTITUTIONAL SALES Result [facility] Kirsten Burns MD LAB BLOOD ORDERABLES Fin al Result Performing Organization Address [facility] Co de Phone Number [facility] [address] [facility] [place] [address] * (ABNORMAL) POCT glucose (10/19/2023 2:40 PM DIRECTOR OF INSTITUTIONAL SALES) Glucose, POC 195(H) 70 - 140 mg/dL [facility] Comment: For Glucose values <35 mg/dl when Hematocrit is >60 mg/dl,the test may not accurately detect significant hypoglycemia,and testing in the Laboratory should be considered if clinically indicated. Blood 10/19/2023 2:40 PM DIRECTOR OF INSTITUTIONAL SALES 10/19/2023 2:40 PM DIRECTOR OF INSTITUTIONAL SALES Jaqueline Valero MD LAB POCT ORDERABLES - APRIL CE Final Result Performing Organization Address [facility] Co de Phone Number [facility] [address] [facility] [employer] [place] [address] * POCT glucose (10/19/2023 12:25 PM DIRECTOR OF INSTITUTIONAL SALES) Glucose, POC 114 70 - 140 mg/dL [facility] Comment: For Glucose values <35 mg/dl when Hematocrit is >60 mg/dl,the test may not accurately detect significant hypoglycemia,and testing in the Laboratory should be considered if clinically indicated. Blood 10/19/2023 12:2 5 PM DIRECTOR OF INSTITUTIONAL SALES 10/19/2023 12:25 PM DIRECTOR OF INSTITUTIONAL SALES Jaqueline Valero MD LAB POCT ORDERABLES - APRIL CE Final Result [facility] [address] [place] [address] * POCT glucose (10/19/2023 11:12 AM DIRECTOR OF INSTITUTIONAL SALES) Glucose, POC 116 70 - 140 mg/dL [facility] Comment: For Glucose values <35 mg/dl when Hematocrit is >60 mg/dl,the test may not accurately detect significant hypoglycemia,and testing in the Laboratory should be considered if clinically indicated. Blood 10/19/2023 11:1 2 AM DIRECTOR OF INSTITUTIONAL SALES 10/19/2023 11:12 AM DIRECTOR OF INSTITUTIONAL SALES Jaqueline Valero MD LAB POCT ORDERABLES - APRIL CE Final Result Performing Organization Address [facility] Co de Phone Number [facility] [address] [facility] [place] [address] * (ABNORMAL) POCT glucose (10/19/2023 10:54 AM DIRECTOR OF INSTITUTIONAL SALES) Glucose, POC 57(L) 70 - 140 mg/dL [facility] Comment: For Glucose values <35 mg/dl when Hematocrit is >60 mg/dl,the test may not accurately detect significant hypoglycemia,and testing in the Laboratory should be considered if clinically indicated. Blood 10/19/2023 10:5 4 AM DIRECTOR OF INSTITUTIONAL SALES 10/19/2023 10:54 AM DIRECTOR OF INSTITUTIONAL SALES Jaqueline Valero MD LAB POCT ORDERABLES - APRIL CE Final Result Performing Organization Address [facility] de Phone Number [facility] [address] [facility] [place] [address] * POCT glucose (10/19/2023 9:04 AM DIRECTOR OF INSTITUTIONAL SALES) Glucose, POC 82 70 - 140 mg/dL [facility] Comment: For Glucose values <35 mg/dl when Hematocrit is >60 mg/dl,the test may not accurately detect significant hypoglycemia,and testing in the Laboratory should be considered if clinically indicated. Blood 10/19/2023 9:04 AM DIRECTOR OF INSTITUTIONAL SALES 10/19/2023 9:04 AM DIRECTOR OF INSTITUTIONAL SALES Jaqueline Valero MD LAB POCT ORDERABLES - APRIL CE Final Result Performing Organization Address [facility] Co de Phone Number [facility] [address] Department [place] [address] * (ABNORMAL) aPTT (10/19/2023 8:58 AM DIRECTOR OF INSTITUTIONAL SALES) aPTT 46(H) 28 - 38 sec [facility] Comment: Interpretive Data Heparin therapeutic range: 66.0 - 100.0 seconds. Range based on correlation with therapeutic heparin activity range of 0.3 - 0.7 Units/mL. Current interpretive data was last revised on 2023. Blood 10/19/2023 8:58 AM DIRECTOR OF INSTITUTIONAL SALES 10/19/2023 9:28 AM DIRECTOR OF INSTITUTIONAL SALES Narrative [facility] - 10/19/2023 9:51 AM DIRECTOR OF INSTITUTIONAL SALES Draw STAT PTT 6 hrs after initiation of heparin infusion, draw STAT PTT 6 hours after each dose change, and every 6 hours until 2 consecutive PTTs are within therapeutic range. Once two consecutive PTT's are therapeutic (66-100 seconds), then draw PTT every AM until heparin is discontinued. Byron Olvera BENCH WORKER APPRENTICE LAB BLOOD ORDERABLES Fi nal Result Performing Organization Address [facility] Co de Phone Number [facility] [address] [place] [address] * Oxyhemoglobin, central venous (10/19/2023 8:58 AM DIRECTOR OF INSTITUTIONAL SALES) [facility] Oxyhemoglobin, CV 70.1 % [facility] Comment: Interpretive Data No reference range established. Current interpretive data was last revised 2019. Blood 10/19/2023 8:58 AM DIRECTOR OF INSTITUTIONAL SALES 10/19/2023 9:16 AM DIRECTOR OF INSTITUTIONAL SALES Narrative [facility] - 10/19/2023 9:17 AM DIRECTOR OF INSTITUTIONAL SALES While on [facility] Dawna Castellanos BENCH WORKER APPRENTICE LAB BLOOD ORDERABLES Ann Marie l Result Performing Organization Address [facility]/ZIP Co de Phone Number [facility] [address] Department [employer] [place] [address] * (ABNORMAL) POCT glucose (10/19/2023 7:19 AM DIRECTOR OF INSTITUTIONAL SALES) [facility] Glucose, POC 150(H) 70 - 140 mg/dL [facility] Comment: For Glucose values <35 mg/dl when Hematocrit is >60 mg/dl,the test may not accurately detect significant hypoglycemia,and testing in the Laboratory should be considered if clinically indicated. Blood 10/19/2023 7:19 AM DIRECTOR OF INSTITUTIONAL SALES 10/19/2023 7:19 AM DIRECTOR OF INSTITUTIONAL SALES Jaqueline Valero MD LAB POCT ORDERABLES - APRIL CE Final Result Performing Organization Address [facility] Co de Phone Number [facility] [address] Department of [employer] [place], [place] [id number] * Lactate (10/19/2023 7:09 AM DIRECTOR OF INSTITUTIONAL SALES) Lactate 1.4 0.7 - 2.0 mmol/L [facility] Blood 10/19/2023 7:09 AM DIRECTOR OF INSTITUTIONAL SALES 10/19/2023 7:22 AM DIRECTOR OF INSTITUTIONAL SALES Dawna Castellanos BENCH WORKER APPRENTICE LAB BLOOD ORDERABLES Ann Marie l Result Performing Organization Address [facility] Co de Phone Number [facility] [address] Department of [employer] [place], [place] [id number] * Oxyhemoglobin, central venous (10/19/2023 7:09 AM DIRECTOR OF INSTITUTIONAL SALES) Oxyhemoglobin, CV 96.5 % [facility] Comment: Interpretive Data No reference range established. Current interpretive data was last revised 2019. Blood 10/19/2023 7:09 AM DIRECTOR OF INSTITUTIONAL SALES 10/19/2023 7:22 AM DIRECTOR OF INSTITUTIONAL SALES Narrative [facility] - 10/19/2023 7:24 AM DIRECTOR OF INSTITUTIONAL SALES While on [facility] Dawna Castellanos BENCH WORKER APPRENTICE LAB BLOOD ORDERABLES Ann Marie l Result Performing Organization Address [facility] Co de Phone Number [facility] [address] Department of [employer] [place], [place] [id number] * Critical Care (10/19/2023 6:57 AM DIRECTOR OF INSTITUTIONAL SALES) Narrative Kirsten Burns MD - 10/19/2023 6:57 AM DIRECTOR OF INSTITUTIONAL SALES Dawna Castellanos NP ? 10/19/2023 ??2:12 PM [...] plan with the ICU team and other medical/building energy consultant staff, making frequent assessments and decisions [...] * (ABNORMAL) POCT glucose (10/19/2023 6:57 AM DIRECTOR OF INSTITUTIONAL SALES) [facility] Signature Glucose, POC 147(H) 70 - 140 mg/dL [facility] Comment: For Glucose values <35 mg/dl when Hematocrit is >60 mg/dl,the test may not accurately detect significant hypoglycemia,and testing in the Laboratory should be considered if clinically indicated. Blood 10/19/2023 6:57 AM DIRECTOR OF INSTITUTIONAL SALES 10/19/2023 6:57 AM DIRECTOR OF INSTITUTIONAL SALES Jaqueline Valero MD LAB POCT ORDERABLES - APRIL CE Final Result [facility] [address] Department [place] [address] * XR Chest 1 View - Portable - in AM (10/19/2023 6:27 AM DIRECTOR OF INSTITUTIONAL SALES) Anatomical Region Laterality Modality Body, Chest N/A Computed Radiogr aphy 10/19/2023 7:36 AM DIRECTOR OF INSTITUTIONAL SALES Impressions 10/19/2023 7:36 AM DIRECTOR OF INSTITUTIONAL SALES Comparison is made to 10/10/2023. ??Right internal jugular catheter tip overlies the superior vena cava, unchanged in position. ??The [place]-Daniel catheter has been removed. ??Sternotomy wires and [...] John Bruno M.D. Narrative 10/19/2023 7:36 AM DIRECTOR OF INSTITUTIONAL SALES EXAMINATION: Chest 1 view frontal HISTORY: Shortness of breath Procedure Note John Bruno MD - 10/19/2023 EXAMINATION: Chest 1 view frontal HISTORY: Shortness of breath IMPRESSION: Comparison is made to 10/10/2023. Right internal jugular catheter tip overlies the superior vena cava, unchanged in position. The [place]-Daniel catheter has been removed. Sternotomy wires and [...] * (ABNORMAL) POCT glucose (10/19/2023 6:06 AM DIRECTOR OF INSTITUTIONAL SALES) Glucose, POC 163(H) 70 - 140 mg/dL [facility] Comment: For Glucose values <35 mg/dl when Hematocrit is >60 mg/dl,the test may not accurately detect significant hypoglycemia,and testing in the Laboratory should be considered if clinically indicated. Blood 10/19/2023 6:06 AM DIRECTOR OF INSTITUTIONAL SALES 10/19/2023 6:06 AM DIRECTOR OF INSTITUTIONAL SALES Jaqueline Valero MD LAB POCT ORDERABLES - APRIL CE Final Result Performing Organization Address [facility] de Phone Number [facility] [address] [facility] [place] [address] * (ABNORMAL) POCT glucose (10/19/2023 5:10 AM DIRECTOR OF INSTITUTIONAL SALES) Glucose, POC 191(H) 70 - 140 mg/dL [facility] Comment: For Glucose values <35 mg/dl when Hematocrit is >60 mg/dl,the test may not accurately detect significant hypoglycemia,and testing in the Laboratory should be considered if clinically indicated. Blood 10/19/2023 5:10 AM DIRECTOR OF INSTITUTIONAL SALES 10/19/2023 5:10 AM DIRECTOR OF INSTITUTIONAL SALES Jaqueline Valero MD LAB POCT ORDERABLES - APRIL CE Final Result Performing Organization Address [facility] de Phone Number [facility] [address] [facility] [place] [address] * (ABNORMAL) aPTT (10/19/2023 4:14 AM DIRECTOR OF INSTITUTIONAL SALES) aPTT 50(H) 28 - 38 sec [facility] Comment: Interpretive Data Heparin therapeutic range: 66.0 - 100.0 seconds. Range based on correlation with therapeutic heparin activity range of 0.3 - 0.7 Units/mL. Current interpretive data was last revised on 2023. Blood 10/19/2023 4:14 AM DIRECTOR OF INSTITUTIONAL SALES 10/19/2023 4:27 AM DIRECTOR OF INSTITUTIONAL SALES Narrative [facility] - 10/19/2023 5:01 AM DIRECTOR OF INSTITUTIONAL SALES Draw STAT PTT 6 hrs after initiation of heparin infusion, draw STAT PTT 6 hours after each dose change, and every 6 hours until 2 consecutive PTTs are within therapeutic range. Once two consecutive PTT's are therapeutic (46-70 seconds), then draw PTT every AM until heparin is discontinued. Jaqueline Valero MD LAB BLOOD ORDERABLES Final Result Performing Organization Address [facility] Co de Phone Number [facility] [address] [facility] [place] [address] * (ABNORMAL) POCT glucose (10/19/2023 4:03 AM DIRECTOR OF INSTITUTIONAL SALES) Glucose, POC 175(H) 70 - 140 mg/dL [facility] Comment: For Glucose values <35 mg/dl when Hematocrit is >60 mg/dl,the test may not accurately detect significant hypoglycemia,and testing in the Laboratory should be considered if clinically indicated. Blood 10/19/2023 4:03 AM DIRECTOR OF INSTITUTIONAL SALES 10/19/2023 4:03 AM DIRECTOR OF INSTITUTIONAL SALES Result [facility] Jaqueline Valero MD LAB POCT ORDERABLES - APRIL CE Final Result Performing Organization Address [facility] de Phone Number [facility] [address] [facility] [place] [address] * (ABNORMAL) POCT glucose (10/19/2023 2:56 AM DIRECTOR OF INSTITUTIONAL SALES) Glucose, POC 177(H) 70 - 140 mg/dL [facility] Comment: For Glucose values <35 mg/dl when Hematocrit is >60 mg/dl,the test may not accurately detect significant hypoglycemia,and testing in the Laboratory should be considered if clinically indicated. Blood 10/19/2023 2:56 AM DIRECTOR OF INSTITUTIONAL SALES 10/19/2023 2:56 AM DIRECTOR OF INSTITUTIONAL SALES Result [facility] Jaqueline Valero MD LAB POCT ORDERABLES - APRIL CE Final Result Performing Organization Address [facility] Co de Phone Number [facility] [address] [facility] Social [place] [address] * eGFR (10/19/2023 2:11 AM DIRECTOR OF INSTITUTIONAL SALES) eGFR 5 mL/min/1. 73 m2 [facility] Comment: Interpretive Data Reference Interval [...] reviewed 2021. Blood 10/19/2023 2:1 1 AM DIRECTOR OF INSTITUTIONAL SALES 10/19/2023 2:23 AM DIRECTOR OF INSTITUTIONAL SALES us Dawna Castellanos BENCH WORKER APPRENTICE LAB BLOOD ORDERABLES Ann Marie l Result [facility] [address] Department [place] [address] * (ABNORMAL) Blood gas, arterial (10/19/2023 2:11 AM DIRECTOR OF INSTITUTIONAL SALES) pH, Art 7.28(L) 7.35 - 7.45 [facility] PCO2, Arterial 44 35 - 45 mmHg [facility] PO2, Arterial 130(H) 83 - 108 mmHg [facility] HCO3 Art (Calculated) 21 20 - 30 mmol/L [facility] BE, art -6 mmol/L [facility] Comment: Interpretive Data No Reference Range Established Current Interpretive Data was last revised on 2017 O2 Sat Art (Calculated) 99(H) 94 - 98 % [facility] Blood 10/19/2023 2:11 AM DIRECTOR OF INSTITUTIONAL SALES 10/19/2023 2:15 AM DIRECTOR OF INSTITUTIONAL SALES Gamal Fox BENCH WORKER APPRENTICE LAB BLOOD ORDERABLES Final Result Performing Organization Address [facility]/ZIP Co de Phone Number [facility] [address] [facility] [employer] [place], [place] [id number] * Oxyhemoglobin, central venous (10/19/2023 2:11 AM DIRECTOR OF INSTITUTIONAL SALES) Oxyhemoglobin, CV 79.0 % [facility] Comment: Interpretive Data No reference range established. Current interpretive data was last revised 2019. Blood 10/19/2023 2:11 AM DIRECTOR OF INSTITUTIONAL SALES 10/19/2023 2:15 AM DIRECTOR OF INSTITUTIONAL SALES Dawna Castellanos BENCH WORKER APPRENTICE LAB BLOOD ORDERABLES Ann Marie l Result Performing Organization Address [facility] Co de Phone Number [facility] [address] [place] [address] * Protime-INR (10/19/2023 2:11 AM DIRECTOR OF INSTITUTIONAL SALES) PT 12.8 10.3 - 13.7 sec [facility] INR 1.12 0.90 - 1.20 [facility] Comment: Interpretive data Oral anticoagulant therapeutic ranges: Venous thromboembolism prophylaxis or treatment: 2.0-3.0 CARDIOLOGY Standard range: 2.0-3.0 High-intensity range: 2.5-3.5 Refer to indication-specific guidelines for appropriate target ranges for prosthetic heart valve replacement. Current interpretive data was last revised on 2019. Blood 10/19/2023 2:11 AM DIRECTOR OF INSTITUTIONAL SALES 10/19/2023 2:23 AM DIRECTOR OF INSTITUTIONAL SALES Byron Olvera BENCH WORKER APPRENTICE LAB BLOOD ORDERABLES Fi nal Result Performing Organization Address [facility] Co de Phone Number [facility] [address] [facility] [employer] [place] [address] * Magnesium (10/19/2023 2:11 AM DIRECTOR OF INSTITUTIONAL SALES) Magnesium 2.5 1.4 - 2.5 mg/dL [facility] Blood 10/19/2023 2:11 AM DIRECTOR OF INSTITUTIONAL SALES 10/19/2023 2:23 AM DIRECTOR OF INSTITUTIONAL SALES Byron Olvera BENCH WORKER APPRENTICE LAB BLOOD ORDERABLES Fi nal Result Performing Organization Address [facility] Co de Phone Number [facility] [address] [facility] [employer] [place] [address] * Calcium, ionized (10/19/2023 2:11 AM DIRECTOR OF INSTITUTIONAL SALES) Calcium, Ionized 4.69 4.50 - 5.10 mg/dL [facility] Blood 10/19/2023 2:11 AM DIRECTOR OF INSTITUTIONAL SALES 10/19/2023 2:15 AM DIRECTOR OF INSTITUTIONAL SALES Byron Olvera BENCH WORKER APPRENTICE LAB BLOOD ORDERABLES Fi nal Result Performing Organization Address [facility] Co de Phone Number [facility] [address] [facility] [employer] [place] [address] * (ABNORMAL) Renal function panel (10/19/2023 2:11 AM DIRECTOR OF INSTITUTIONAL SALES) Sodium 138 135 - 145 mmol/L [facility] Potassium, pl 4.4 3.3 - 4.9 mmol/L [facility] Chloride 97 97 - 110 mmol/L [facility] CO2 21(L) 22 - 32 mmol/L [facility] Anion gap 20(H) 2 - 15 mmol/L [facility] BUN 74(H) 6 - 25 mg/dL [facility] Creatinine 10.85(H) 0.80 - 1.30 mg/dL [facility] Glucose 188 70 - 199 mg/dL [facility] Comment: Interpretive Data Fasting glucose [...] 2022. Calcium 9.0 8.5 - 10.3 mg/dL [facility] Phosphorus, pl 8.3(H) 2.3 - 4.5 mg/dL [facility] Albumin 3.1(L) 3.5 - 5.0 g/dL [facility] Blood 10/19/2023 2:11 AM DIRECTOR OF INSTITUTIONAL SALES 10/19/2023 2:23 AM DIRECTOR OF INSTITUTIONAL SALES us Byron Olvera NP LAB BLOOD ORDERABLES nal Result [facility] [address] Department [place] [address] * (ABNORMAL) CBC without differential (10/19/2023 2:11 AM DIRECTOR OF INSTITUTIONAL SALES) WBC 8.9 3.8 - 9.9 K/cumm [facility] Hgb 8.7(L) 13.0 - 17.5 g/dL [facility] Hct 27.4(L) 38.9 - 50.3 % [facility] Plt 157 150 - 400 K/cumm [facility] MPV 11.0 9.1 - 12.3 fL [facility] RBC 2.91(L) 4.30 - 5.80 M/cumm [facility] MCV 94.2 81.3 - 96.4 fL [facility] MCH 29.9 27.1 - 33.3 pg [facility] MCHC 31.8(L) 32.3 - 35.7 g/dL [facility] RDW CV 16.4(H) 11.1 - 14.9 % [facility] RDW SD 55.0(H) 35.7 - 48.1 fL [facility] NRBC abs 0.00 0.00 - 0.01 K/cumm [facility] Blood 10/19/2023 2:11 AM DIRECTOR OF INSTITUTIONAL SALES 10/19/2023 2:23 AM DIRECTOR OF INSTITUTIONAL SALES us Byron Olvera BENCH WORKER APPRENTICE LAB BLOOD ORDERABLES Fi nal Result Performing Organization Address [facility]/ZIP Co de Phone Number [facility] [address] Department [employer] [place], [place] [id number] * (ABNORMAL) POCT glucose (10/19/2023 2:07 AM DIRECTOR OF INSTITUTIONAL SALES) Glucose, POC 171(H) 70 - 140 mg/dL [facility] Comment: For Glucose values <35 mg/dl when Hematocrit is >60 mg/dl,the test may not accurately detect significant hypoglycemia,and testing in the Laboratory should be considered if clinically indicated. Blood 10/19/2023 2:07 AM DIRECTOR OF INSTITUTIONAL SALES 10/19/2023 2:07 AM DIRECTOR OF INSTITUTIONAL SALES us Jaqueline Valero MD LAB POCT ORDERABLES - APRIL CE Final Result Performing Organization Address [facility]/ZIP Co de Phone Number [facility] [address] Department [employer] [place] [address] * (ABNORMAL) POCT glucose (10/19/2023 12:01 AM DIRECTOR OF INSTITUTIONAL SALES) Glucose, POC 144(H) 70 - 140 mg/dL [facility] Comment: For Glucose values <35 mg/dl when Hematocrit is >60 mg/dl,the test may not accurately detect significant hypoglycemia,and testing in the Laboratory should be considered if clinically indicated. Blood 10/19/2023 12:0 1 AM DIRECTOR OF INSTITUTIONAL SALES 10/19/2023 12:01 AM DIRECTOR OF INSTITUTIONAL SALES Jaqueline Valero MD LAB POCT ORDERABLES - APRIL CE Final Result Performing Organization Address [facility] Co de Phone Number [facility] [address] [facility] [employer] [place] [address] * POCT glucose (10/18/2023 11:03 PM DIRECTOR OF INSTITUTIONAL SALES) Glucose, POC 106 70 - 140 mg/dL [facility] Comment: For Glucose values <35 mg/dl when Hematocrit is >60 mg/dl,the test may not accurately detect significant hypoglycemia,and testing in the Laboratory should be considered if clinically indicated. Blood 10/18/2023 11:0 3 PM DIRECTOR OF INSTITUTIONAL SALES 10/18/2023 11:03 PM DIRECTOR OF INSTITUTIONAL SALES Jaqueline Valero MD LAB POCT ORDERABLES - APRIL CE Final Result Performing Organization Address [facility] de Phone Number [facility] [address] [facility] [employer] [place] [address] * POCT glucose (10/18/2023 10:11 PM DIRECTOR OF INSTITUTIONAL SALES) Glucose, POC 114 70 - 140 mg/dL [facility] Comment: For Glucose values <35 mg/dl when Hematocrit is >60 mg/dl,the test may not accurately detect significant hypoglycemia,and testing in the Laboratory should be considered if clinically indicated. Blood 10/18/2023 10:1 1 PM DIRECTOR OF INSTITUTIONAL SALES 10/18/2023 10:11 PM DIRECTOR OF INSTITUTIONAL SALES Jaqueline Valero MD LAB POCT ORDERABLES - APRIL CE Final Result Performing Organization Address [facility] Co de Phone Number [facility] [address] [facility] [employer] [place], [place] [id number] * (ABNORMAL) aPTT (10/18/2023 9:21 PM DIRECTOR OF INSTITUTIONAL SALES) aPTT 43(H) 28 - 38 sec [facility] Comment: Interpretive Data Heparin therapeutic range: 66.0 - 100.0 seconds. Range based on correlation with therapeutic heparin activity range of 0.3 - 0.7 Units/mL. Current interpretive data was last revised on 2023. Blood 10/18/2023 9:21 PM DIRECTOR OF INSTITUTIONAL SALES 10/18/2023 9:25 PM DIRECTOR OF INSTITUTIONAL SALES Narrative [facility] 10/18/2023 9:42 PM DIRECTOR OF INSTITUTIONAL SALES Draw STAT PTT 6 hrs after initiation of heparin infusion, draw STAT PTT 6 hours after each dose change, and every 6 hours until 2 consecutive PTTs are within therapeutic range. Once two consecutive PTT's are therapeutic (46-70 seconds), then draw PTT every AM until heparin is discontinued. Jaqueline Valero MD LAB BLOOD ORDERABLES Final Result Performing Organization Address [facility] Co de Phone Number [facility] [address] [employer] [place], [place] [id number] * POCT glucose (10/18/2023 9:19 PM DIRECTOR OF INSTITUTIONAL SALES) Glucose, POC 120 70 - 140 mg/dL [facility] Comment: For Glucose values <35 mg/dl when Hematocrit is >60 mg/dl,the test may not accurately detect significant hypoglycemia,and testing in the Laboratory should be considered if clinically indicated. Blood 10/18/2023 9:19 PM DIRECTOR OF INSTITUTIONAL SALES 10/18/2023 9:19 PM DIRECTOR OF INSTITUTIONAL SALES Jaqueline Valero MD LAB POCT ORDERABLES - APRIL CE Final Result Performing Organization Address [facility] Co de Phone Number [facility] [address] [facility] [employer] [place], [place] [phone] * POCT glucose (10/18/2023 8:37 PM DIRECTOR OF INSTITUTIONAL SALES) Glucose, POC 120 70 - 140 mg/dL [facility] Comment: For Glucose values <35 mg/dl when Hematocrit is >60 mg/dl,the test may not accurately detect significant hypoglycemia,and testing in the Laboratory should be considered if clinically indicated. Blood 10/18/2023 8:37 PM DIRECTOR OF INSTITUTIONAL SALES 10/18/2023 8:37 PM DIRECTOR OF INSTITUTIONAL SALES Jaqueline Valero MD LAB POCT ORDERABLES - APRIL CE Final Result Performing Organization Address [facility] Co de Phone Number [facility] [address] Department [place] [address] * (ABNORMAL) Blood gas, arterial (10/18/2023 8:34 PM DIRECTOR OF INSTITUTIONAL SALES) pH, Art 7.27(L) 7.35 - 7.45 [facility] PCO2, Arterial 46(H) 35 - 45 mmHg [facility] PO2, Arterial 88 83 - 108 mmHg [facility] HCO3 Art (Calculated) 21 20 - 30 mmol/L [facility] BE, art -6 mmol/L [facility] Comment: Interpretive Data No Reference Range Established Current Interpretive Data was last revised on 2017 O2 Sat Art (Calculated) 95 94 - 98 % [facility] Blood 10/18/2023 8:34 PM DIRECTOR OF INSTITUTIONAL SALES 10/18/2023 8:40 PM DIRECTOR OF INSTITUTIONAL SALES Gamal Fox NP LAB BLOOD ORDERABLES Final Result Performing Organization Address [facility] Co de Phone Number [facility] [address] Department [place] [address] * Critical Care (10/18/2023 6:49 PM DIRECTOR OF INSTITUTIONAL SALES) Narrative Kirsten Burns MD - 10/18/2023 6:49 PM DIRECTOR OF INSTITUTIONAL SALES Gamal Fox NP ? 10/19/2023 ??3:18 AM [...] plan with the ICU team and other medical/building energy consultant staff, making frequent assessments and decisions [...] Result * POCT glucose (10/18/2023 6:38 PM DIRECTOR OF INSTITUTIONAL SALES) Glucose, POC 135 70 - 140 mg/dL [facility] Comment: For Glucose values <35 mg/dl when Hematocrit is >60 mg/dl,the test may not accurately detect significant hypoglycemia,and testing in the Laboratory should be considered if clinically indicated. Blood 10/18/2023 6:38 PM DIRECTOR OF INSTITUTIONAL SALES 10/18/2023 6:38 PM DIRECTOR OF INSTITUTIONAL SALES Jaqueline Valero MD LAB POCT ORDERABLES - APRIL CE Final Result [facility] [address] Department [place] [address] * POCT glucose (10/18/2023 5:45 PM DIRECTOR OF INSTITUTIONAL SALES) Glucose, POC 132 70 - 140 mg/dL [facility] Comment: For Glucose values <35 mg/dl when Hematocrit is >60 mg/dl,the test may not accurately detect significant hypoglycemia,and testing in the Laboratory should be considered if clinically indicated. Blood 10/18/2023 5:45 PM DIRECTOR OF INSTITUTIONAL SALES 10/18/2023 5:45 PM DIRECTOR OF INSTITUTIONAL SALES us Jaqueline Valero MD LAB POCT ORDERABLES - APRIL CE Final Result [facility] [address] Department [place] [address] * XR Kub (10/18/2023 5:42 PM DIRECTOR OF INSTITUTIONAL SALES) Anatomical Region Laterality Modality Body, Abdomen N/A Computed Radiogr aphy 10/18/2023 5:50 PM DIRECTOR OF INSTITUTIONAL SALES Impressions 10/18/2023 5:50 PM DIRECTOR OF INSTITUTIONAL SALES FINDINGS/IMPRESSION: ?? Apically oriented left-sided chest tubes and mediastinal drains. Overall paucity of gas distended bowel loops within the abdomen and pelvis. ??No visualized dilated bowel loops. ??No large volume of intraperitoneal free air, although evaluation is limited with supine positioning. ??A Nguyen catheter temperature probe is present. ??No acute osseous abnormality. Electronically signed by: Camilo Cheatham MD Narrative 10/18/2023 5:50 PM DIRECTOR OF INSTITUTIONAL SALES EXAMINATION: XR KUB HISTORY: Nausa vomiting VIEWS: [...] Result * POCT glucose (10/18/2023 4:47 PM DIRECTOR OF INSTITUTIONAL SALES) [facility] Signature Glucose, POC 138 70 - 140 mg/dL [facility] Comment: For Glucose values <35 mg/dl when Hematocrit is >60 mg/dl,the test may not accurately detect significant hypoglycemia,and testing in the Laboratory should be considered if clinically indicated. Blood 10/18/2023 4:47 PM DIRECTOR OF INSTITUTIONAL SALES 10/18/2023 4:47 PM DIRECTOR OF INSTITUTIONAL SALES Result [facility] Jaqueline Valero MD LAB POCT ORDERABLES - APRIL CE Final Result Performing Organization Address [facility] de Phone Number [facility] [address] [place] [address] * aPTT (10/18/2023 2:55 PM DIRECTOR OF INSTITUTIONAL SALES) aPTT 38 28 - 38 sec [facility] Comment: Interpretive Data Heparin therapeutic range: 66.0 - 100.0 seconds. Range based on correlation with therapeutic heparin activity range of 0.3 - 0.7 Units/mL. Current interpretive data was last revised on 2023. Blood 10/18/2023 2:55 PM DIRECTOR OF INSTITUTIONAL SALES 10/18/2023 3:16 PM DIRECTOR OF INSTITUTIONAL SALES Result [facility] Jaqueline Valero MD LAB BLOOD ORDERABLES Final Result Performing Organization Address [facility] de Phone Number [facility] [address] [place] [address] * POCT glucose (10/18/2023 2:52 PM DIRECTOR OF INSTITUTIONAL SALES) Glucose, POC 104 70 - 140 mg/dL [facility] Comment: For Glucose values <35 mg/dl when Hematocrit is >60 mg/dl,the test may not accurately detect significant hypoglycemia,and testing in the Laboratory should be considered if clinically indicated. Blood 10/18/2023 2:52 PM DIRECTOR OF INSTITUTIONAL SALES 10/18/2023 2:52 PM DIRECTOR OF INSTITUTIONAL SALES Result [facility] Jaqueline Valero MD LAB POCT ORDERABLES - APRIL CE Final Result Performing Organization Address [facility] Co de Phone Number [facility] [address] [facility] [place] [address] * POCT glucose (10/18/2023 1:53 PM DIRECTOR OF INSTITUTIONAL SALES) Glucose, POC 87 70 - 140 mg/dL [facility] Comment: For Glucose values <35 mg/dl when Hematocrit is >60 mg/dl,the test may not accurately detect significant hypoglycemia,and testing in the Laboratory should be considered if clinically indicated. Blood 10/18/2023 1:53 PM DIRECTOR OF INSTITUTIONAL SALES 10/18/2023 1:53 PM DIRECTOR OF INSTITUTIONAL SALES Jaqueline Valero MD LAB POCT ORDERABLES - APRIL CE Final Result Performing Organization Address [facility] Co de Phone Number [facility] [address] [facility] [place] [address] * POCT glucose (10/18/2023 12:48 PM DIRECTOR OF INSTITUTIONAL SALES) Glucose, POC 83 70 - 140 mg/dL [facility] Comment: For Glucose values <35 mg/dl when Hematocrit is >60 mg/dl,the test may not accurately detect significant hypoglycemia,and testing in the Laboratory should be considered if clinically indicated. Blood 10/18/2023 12:4 8 PM DIRECTOR OF INSTITUTIONAL SALES 10/18/2023 12:48 PM DIRECTOR OF INSTITUTIONAL SALES Jaqueline Valero MD LAB POCT ORDERABLES - APRIL CE Final Result Performing Organization Address [facility] Co de Phone Number [facility] [address] [facility] [place] [address] * POCT glucose (10/18/2023 12:00 PM DIRECTOR OF INSTITUTIONAL SALES) Glucose, POC 81 70 - 140 mg/dL [facility] Comment: For Glucose values <35 mg/dl when Hematocrit is >60 mg/dl,the test may not accurately detect significant hypoglycemia,and testing in the Laboratory should be considered if clinically indicated. Blood 10/18/2023 12:0 0 PM DIRECTOR OF INSTITUTIONAL SALES 10/18/2023 12:00 PM DIRECTOR OF INSTITUTIONAL SALES Jaqueline Valero MD LAB POCT ORDERABLES - APRIL CE Final Result Performing Organization Address [facility] Co de Phone Number [facility] [address] [place] [place] [address] * POCT glucose (10/18/2023 10:57 AM DIRECTOR OF INSTITUTIONAL SALES) Glucose, POC 76 70 - 140 mg/dL [facility] Comment: For Glucose values <35 mg/dl when Hematocrit is >60 mg/dl,the test may not accurately detect significant hypoglycemia,and testing in the Laboratory should be considered if clinically indicated. Blood 10/18/2023 10:5 7 AM DIRECTOR OF INSTITUTIONAL SALES 10/18/2023 10:57 AM DIRECTOR OF INSTITUTIONAL SALES Jaqueline Valero MD LAB POCT ORDERABLES - APRIL CE Final Result Performing Organization Address [facility] de Phone Number [facility] [address] [facility] [place] [address] * POCT glucose (10/18/2023 9:52 AM DIRECTOR OF INSTITUTIONAL SALES) Glucose, POC 92 70 - 140 mg/dL [facility] Comment: For Glucose values <35 mg/dl when Hematocrit is >60 mg/dl,the test may not accurately detect significant hypoglycemia,and testing in the Laboratory should be considered if clinically indicated. Blood 10/18/2023 9:52 AM DIRECTOR OF INSTITUTIONAL SALES 10/18/2023 9:52 AM DIRECTOR OF INSTITUTIONAL SALES Jaqueline Valero MD LAB POCT ORDERABLES - ARPIL CE Final Result Performing Organization Address [facility] Co de Phone Number [facility] [address] [place] [address] * POCT glucose (10/18/2023 8:46 AM DIRECTOR OF INSTITUTIONAL SALES) Glucose, POC 115 70 - 140 mg/dL [facility] Comment: For Glucose values <35 mg/dl when Hematocrit is >60 mg/dl,the test may not accurately detect significant hypoglycemia,and testing in the Laboratory should be considered if clinically indicated. Blood 10/18/2023 8:46 AM DIRECTOR OF INSTITUTIONAL SALES 10/18/2023 8:46 AM DIRECTOR OF INSTITUTIONAL SALES Jaqueline Valero MD LAB POCT ORDERABLES - APRIL CE Final Result Performing Organization Address [facility] Co de Phone Number [facility] [address] Department [place] [address] * POCT glucose (10/18/2023 7:58 AM DIRECTOR OF INSTITUTIONAL SALES) [facility] Signature Glucose, POC 130 70 - 140 mg/dL [facility] Comment: For Glucose values <35 mg/dl when Hematocrit is >60 mg/dl,the test may not accurately detect significant hypoglycemia,and testing in the Laboratory should be considered if clinically indicated. Blood 10/18/2023 7:58 AM DIRECTOR OF INSTITUTIONAL SALES 10/18/2023 7:58 AM DIRECTOR OF INSTITUTIONAL SALES Jaqueline Valero MD LAB POCT ORDERABLES - APRIL CE Final Result Performing Organization Address [facility] de Phone Number [facility] [address] Department [employer] [place] [address] * Critical Care (10/18/2023 7:27 AM DIRECTOR OF INSTITUTIONAL SALES) Narrative Kirsten Burns MD - 10/18/2023 7:27 AM DIRECTOR OF INSTITUTIONAL SALES Dawna Castellanos NP ? 10/18/2023 ??2:29 PM [...] plan with the ICU team and other medical/building energy consultant staff, making frequent assessments and decisions [...] monitors, laboratory results, and imaging Dawna Castellanos BENCH WORKER APPRENTICE IN CLINIC/BEDSIDE ORDERAB LES Final Result * (ABNORMAL) POCT glucose (10/18/2023 7:02 AM DIRECTOR OF INSTITUTIONAL SALES) Glucose, POC 169(H) 70 - 140 mg/dL [facility] Comment: For Glucose values <35 mg/dl when Hematocrit is >60 mg/dl,the test may not accurately detect significant hypoglycemia,and testing in the Laboratory should be considered if clinically indicated. Blood 10/18/2023 7:02 AM DIRECTOR OF INSTITUTIONAL SALES 10/18/2023 7:02 AM DIRECTOR OF INSTITUTIONAL SALES Result [facility] Jaqueline Valero MD LAB POCT ORDERABLES - APRIL CE Final Result Performing Organization Address [facility]/State/ZIP Co de Phone Number [facility] [address] Department of Laboratories [place], [place] [id number] * (ABNORMAL) POCT glucose (10/18/2023 6:04 AM DIRECTOR OF INSTITUTIONAL SALES) Glucose, POC 196(H) 70 - 140 mg/dL [facility] Comment: For Glucose values <35 mg/dl when Hematocrit is >60 mg/dl,the test may not accurately detect significant hypoglycemia,and testing in the Laboratory should be considered if clinically indicated. Blood 10/18/2023 6:04 AM DIRECTOR OF INSTITUTIONAL SALES 10/18/2023 6:04 AM DIRECTOR OF INSTITUTIONAL SALES Jaqueline Valero MD LAB POCT ORDERABLES - APRIL CE Final Result [facility] [address] Department [place] [address] * XR Chest 1 View - Portable - in AM (10/18/2023 5:38 AM DIRECTOR OF INSTITUTIONAL SALES) Anatomical Region Laterality Modality Body, Chest N/A Computed Radiogr aphy 10/18/2023 9:33 AM DIRECTOR OF INSTITUTIONAL SALES Impressions 10/18/2023 9:33 AM DIRECTOR OF INSTITUTIONAL SALES Comparison 10/17/2023 at 1:37 PM. ??Median sternotomy wires and sternal plates again seen. ??Aortic valve replacement again noted. ??[place] catheter tip projects over the proximal portion [...] Ramirez Blake M.D. Narrative 10/18/2023 9:33 AM DIRECTOR OF INSTITUTIONAL SALES EXAMINATION: Chest 1 view Procedure Note Ramirez Blake MD - 10/18/2023 EXAMINATION: Chest 1 view IMPRESSION: Comparison 10/17/2023 at 1:37 PM. Median sternotomy wires and sternal plates again seen. Aortic valve replacement again noted. [place]Daniel catheter tip projects over the proximal portion [...] signed by: Ramirez Blake M.D. Byron Olvera BENCH WORKER APPRENTICE IMG XR PROCEDURES Final Result * (ABNORMAL) POCT glucose (10/18/2023 5:04 AM DIRECTOR OF INSTITUTIONAL SALES) Glucose, POC 172(H) 70 - 140 mg/dL [facility] Comment: For Glucose values <35 mg/dl when Hematocrit is >60 mg/dl,the test may not accurately detect significant hypoglycemia,and testing in the Laboratory should be considered if clinically indicated. Blood 10/18/2023 5:04 AM DIRECTOR OF INSTITUTIONAL SALES 10/18/2023 5:04 AM DIRECTOR OF INSTITUTIONAL SALES Jaqueline Valero MD LAB POCT ORDERABLES - APRIL CE Final Result Performing Organization Address [facility] de Phone Number [facility] [address] [employer] [place], [place] [id number] * (ABNORMAL) POCT glucose (10/18/2023 4:03 AM DIRECTOR OF INSTITUTIONAL SALES) Glucose, POC 165(H) 70 - 140 mg/dL [facility] Comment: For Glucose values <35 mg/dl when Hematocrit is >60 mg/dl,the test may not accurately detect significant hypoglycemia,and testing in the Laboratory should be considered if clinically indicated. Blood 10/18/2023 4:03 AM DIRECTOR OF INSTITUTIONAL SALES 10/18/2023 4:03 AM DIRECTOR OF INSTITUTIONAL SALES Jaqueline Valero MD LAB POCT ORDERABLES - APRIL CE Final Result Performing Organization Address [facility] Co de Phone Number [facility] [address] [facility] [employer] [place] [address] * (ABNORMAL) POCT glucose (10/18/2023 3:04 AM DIRECTOR OF INSTITUTIONAL SALES) Glucose, POC 167(H) 70 - 140 mg/dL [facility] Comment: For Glucose values <35 mg/dl when Hematocrit is >60 mg/dl,the test may not accurately detect significant hypoglycemia,and testing in the Laboratory should be considered if clinically indicated. Blood 10/18/2023 3:04 AM DIRECTOR OF INSTITUTIONAL SALES 10/18/2023 3:04 AM DIRECTOR OF INSTITUTIONAL SALES Jaqueline Valero MD LAB POCT ORDERABLES - APRIL CE Final Result Performing Organization Address [facility] Co de Phone Number [facility] [address] [facility] [employer] [place], [place] [phone] * (ABNORMAL) POCT glucose (10/18/2023 1:57 AM DIRECTOR OF INSTITUTIONAL SALES) Glucose, POC 178(H) 70 - 140 mg/dL [facility] Comment: For Glucose values <35 mg/dl when Hematocrit is >60 mg/dl,the test may not accurately detect significant hypoglycemia,and testing in the Laboratory should be considered if clinically indicated. Blood 10/18/2023 1:57 AM DIRECTOR OF INSTITUTIONAL SALES 10/18/2023 1:57 AM DIRECTOR OF INSTITUTIONAL SALES Jaqueline Valero MD LAB POCT ORDERABLES - APRIL CE Final Result Performing Organization Address [facility] de Phone Number [facility] [address] [facility] [employer] [place], [place] [phone] * (ABNORMAL) Fibrinogen (10/18/2023 1:54 AM DIRECTOR OF INSTITUTIONAL SALES) [facility] Fibrinogen 435(H) 170 - 400 mg/dL [facility] Blood 10/18/2023 1:54 AM DIRECTOR OF INSTITUTIONAL SALES 10/18/2023 2:14 AM DIRECTOR OF INSTITUTIONAL SALES Jaqueline Valero MD LAB BLOOD ORDERABLES Final Result Performing Organization Address [facility] Co de Phone Number [facility] [address] [facility] [employer] [place], [place] [phone] * eGFR (10/18/2023 1:54 AM DIRECTOR OF INSTITUTIONAL SALES) [facility] eGFR 5 mL/min/1. 73 m2 [facility] Comment: Interpretive Data Reference Interval [...] last reviewed 2021. Blood 10/18/2023 1:54 AM DIRECTOR OF INSTITUTIONAL SALES 10/18/2023 2:14 AM DIRECTOR OF INSTITUTIONAL SALES us Dawna Castellanos BENCH WORKER APPRENTICE LAB BLOOD ORDERABLES Ann Marie kramer Result [facility] [address] Department [place] [address] * Blood gas, arterial (10/18/2023 1:54 AM DIRECTOR OF INSTITUTIONAL SALES) pH, Art 7.35 7.35 - 7.45 [facility] PCO2, Arterial 38 35 - 45 mmHg [facility] PO2, Arterial 92 83 - 108 mmHg [facility] HCO3 Art (Calculated) 21 20 - 30 mmol/L [facility] BE, art -4 mmol/L [facility] Comment: Interpretive Data No Reference Range Established Current Interpretive Data was last revised on 2017 O2 Sat Art (Calculated) 97 94 - 98 % [facility] Blood 10/18/2023 1:54 AM DIRECTOR OF INSTITUTIONAL SALES 10/18/2023 2:11 AM DIRECTOR OF INSTITUTIONAL SALES Dawna Castellanos BENCH WORKER APPRENTICE LAB BLOOD ORDERABLES Ann Marie l Result Performing Organization Address [facility] Co de Phone Number [facility] [address] Department [employer] [place] [address] * Protime-INR (10/18/2023 1:54 AM DIRECTOR OF INSTITUTIONAL SALES) PT 13.4 10.3 - 13.7 sec [facility] INR 1.18 0.90 - 1.20 [facility] Comment: Interpretive data Oral anticoagulant therapeutic ranges: Venous thromboembolism prophylaxis or treatment: 2.0-3.0 CARDIOLOGY Standard range: 2.0-3.0 High-intensity range: 2.5-3.5 Refer to indication-specific guidelines for appropriate target ranges for prosthetic heart valve replacement. Current interpretive data was last revised on 2019. Blood 10/18/2023 1:54 AM DIRECTOR OF INSTITUTIONAL SALES 10/18/2023 2:14 AM DIRECTOR OF INSTITUTIONAL SALES Jaqueline Valero MD LAB BLOOD ORDERABLES Final Result Performing Organization Address [facility] Co de Phone Number [facility] [address] [facility] [employer] [place] [address] * Magnesium (10/18/2023 1:54 AM DIRECTOR OF INSTITUTIONAL SALES) Magnesium 2.5 1.4 - 2.5 mg/dL [facility] Blood 10/18/2023 1:54 AM DIRECTOR OF INSTITUTIONAL SALES 10/18/2023 2:14 AM DIRECTOR OF INSTITUTIONAL SALES Byron Olvera BENCH WORKER APPRENTICE LAB BLOOD ORDERABLES Fi nal Result Performing Organization Address [facility] Co de Phone Number [facility] [address] Department [employer] [place] [address] * Calcium, ionized (10/18/2023 1:54 AM DIRECTOR OF INSTITUTIONAL SALES) Calcium, Ionized 4.94 4.50 - 5.10 mg/dL [facility] Blood 10/18/2023 1:54 AM DIRECTOR OF INSTITUTIONAL SALES 10/18/2023 2:12 AM DIRECTOR OF INSTITUTIONAL SALES us Byron Olevra BENCH WORKER APPRENTICE LAB BLOOD ORDERABLES Fi nal Result [facility] [address] Department [place] [address] * (ABNORMAL) Renal function panel (10/18/2023 1:54 AM DIRECTOR OF INSTITUTIONAL SALES) Pathologist [facility] Sodium 136 135 - 145 mmol/L [facility] Potassium, pl 4.0 3.3 - 4.9 mmol/L [facility] Chloride 98 97 - 110 mmol/L [facility] CO2 20(L) 22 - 32 mmol/L [facility] Anion gap 18(H) 2 - 15 mmol/L [facility] BUN 71(H) 6 - 25 mg/dL [facility] Creatinine 10.47(H) 0.80 - 1.30 mg/dL [facility] Glucose 174 70 - 199 mg/dL [facility] Comment: Interpretive Data Fasting glucose [...] 2022. Calcium 9.2 8.5 - 10.3 mg/dL [facility] Phosphorus, pl 6.5(H) 2.3 - 4.5 mg/dL [facility] Albumin 2.6(L) 3.5 - 5.0 g/dL [facility] Blood 10/18/2023 1:54 AM DIRECTOR OF INSTITUTIONAL SALES 10/18/2023 2:14 AM DIRECTOR OF INSTITUTIONAL SALES Byron Olvera NP LAB BLOOD ORDERABLES Fi nal Result Performing Organization Address [facility] Co de Phone Number [facility] [address] [place] [address] * (ABNORMAL) CBC without differential (10/18/2023 1:54 AM DIRECTOR OF INSTITUTIONAL SALES) [facility] WBC 8.3 3.8 - 9.9 K/cumm [facility] Hgb 8.5(L) 13.0 - 17.5 g/dL [facility] Hct 26.4(L) 38.9 - 50.3 % [facility] Plt 164 150 - 400 K/cumm [facility] MPV 11.1 9.1 - 12.3 fL [facility] RBC 2.89(L) 4.30 - 5.80 M/cumm [facility] MCV 91.3 81.3 - 96.4 fL [facility] MCH 29.4 27.1 - 33.3 pg [facility] MCHC 32.2(L) 32.3 - 35.7 g/dL [facility] RDW CV 15.5(H) 11.1 - 14.9 % [facility] RDW SD 49.9(H) 35.7 - 48.1 fL [facility] NRBC abs 0.02(H) 0.00 - 0.01 K/cumm [facility] Blood 10/18/2023 1:54 AM DIRECTOR OF INSTITUTIONAL SALES 10/18/2023 2:14 AM DIRECTOR OF INSTITUTIONAL SALES Byron Olvera NP LAB BLOOD ORDERABLES Fi nal Result Performing Organization Address [facility]/ZIP Co de Phone Number [facility] [address] Department of [employer] [place], [place] [phone] * (ABNORMAL) POCT glucose (10/18/2023 12:57 AM DIRECTOR OF INSTITUTIONAL SALES) [facility] Glucose, POC 169(H) 70 - 140 mg/dL [facility] Comment: For Glucose values <35 mg/dl when Hematocrit is >60 mg/dl,the test may not accurately detect significant hypoglycemia,and testing in the Laboratory should be considered if clinically indicated. Blood 10/18/2023 12:5 7 AM DIRECTOR OF INSTITUTIONAL SALES 10/18/2023 12:57 AM DIRECTOR OF INSTITUTIONAL SALES Jaqueline Valero MD LAB POCT ORDERABLES - APRIL CE Final Result Performing Organization Address [facility] de Phone Number [facility] [address] [place] [address] * (ABNORMAL) POCT glucose (10/18/2023 12:04 AM DIRECTOR OF INSTITUTIONAL SALES) Glucose, POC 150(H) 70 - 140 mg/dL [facility] Comment: For Glucose values <35 mg/dl when Hematocrit is >60 mg/dl,the test may not accurately detect significant hypoglycemia,and testing in the Laboratory should be considered if clinically indicated. Blood 10/18/2023 12:0 4 AM DIRECTOR OF INSTITUTIONAL SALES 10/18/2023 12:04 AM DIRECTOR OF INSTITUTIONAL SALES Result [facility] Jaqueline Valero MD LAB POCT ORDERABLES - APRIL CE Final Result Performing Organization Address [facility] de Phone Number [facility] [address] [facility] [employer] [place] [address] * POCT glucose (10/17/2023 11:00 PM DIRECTOR OF INSTITUTIONAL SALES) Glucose, POC 111 70 - 140 mg/dL [facility] Comment: For Glucose values <35 mg/dl when Hematocrit is >60 mg/dl,the test may not accurately detect significant hypoglycemia,and testing in the Laboratory should be considered if clinically indicated. Blood 10/17/2023 11:0 0 PM DIRECTOR OF INSTITUTIONAL SALES 10/17/2023 11:00 PM DIRECTOR OF INSTITUTIONAL SALES Jaqueline Valero MD LAB POCT ORDERABLES - APRIL CE Final Result Performing Organization Address [facility]/ZIP Co de Phone Number [facility] [address] Department [place] [address] * (ABNORMAL) Blood gas, arterial (10/17/2023 10:56 PM DIRECTOR OF INSTITUTIONAL SALES) [facility] pH, Art 7.33(L) 7.35 - 7.45 [facility] PCO2, Arterial 38 35 - 45 mmHg [facility] PO2, Arterial 102 83 - 108 mmHg [facility] HCO3 Art (Calculated) 20 20 - 30 mmol/L [facility] BE, art -5 mmol/L [facility] Comment: Interpretive Data No Reference Range Established Current Interpretive Data was last revised on 2017 O2 Sat Art (Calculated) 97 94 - 98 % [facility] Blood 10/17/2023 10:5 6 PM DIRECTOR OF INSTITUTIONAL SALES 10/17/2023 11:05 PM DIRECTOR OF INSTITUTIONAL SALES Dawna Castellanos BENCH WORKER APPRENTICE LAB BLOOD ORDERABLES Ann Marie l Result [facility] [address] Department [place] [address] * (ABNORMAL) Differential, auto (10/17/2023 10:55 PM DIRECTOR OF INSTITUTIONAL SALES) [facility] Neutrophil abs 5.7 1.5 - 6.5 K/cumm [facility] Imm gran abs 0.1 0.0 - 0.1 K/cumm [facility] Lymphocyte abs 0.7(L) 0.8 - 3.3 K/cumm [facility] Monocyte abs 1.1(H) 0.2 - 0.8 K/cumm [facility] Eosinophil abs 0.1 0.0 - 0.5 K/cumm [facility] Basophil abs 0.0 0.0 - 0.1 K/cumm [facility] Neutrophil pct 73.6 % [facility] Comment: Interpretive Data Percent cell count reference ranges are not reported, since discordance with absolute values may lead to misinterpretation of CBC data. Current Interpretive Data was last revised on 2017. Imm gran pct 1.8 % [facility] Comment: Interpretive Data Percent cell count reference ranges are not reported, since discordance with absolute values may lead to misinterpretation of CBC data. Current Interpretive Data was last revised on 2017. Lymphocyte pct 9.3 % [facility] Comment: Interpretive Data Percent cell count reference ranges are not reported, since discordance with absolute values may lead to misinterpretation of CBC data. Current Interpretive Data was last revised on 2017. Monocyte pct 13.7 % [facility] Comment: Interpretive Data Percent cell count reference ranges are not reported, since discordance with absolute values may lead to misinterpretation of CBC data. Current Interpretive Data was last revised on 2017. Eosinophil pct 1.3 % [facility] Comment: Interpretive Data Percent cell count reference ranges are not reported, since discordance with absolute values may lead to misinterpretation of CBC data. Current Interpretive Data was last revised on 2017. Basophil pct 0.3 % [facility] Comment: Interpretive Data Percent cell count reference ranges are not reported, since discordance with absolute values may lead to misinterpretation of CBC data. Current Interpretive Data was last revised on 2017. Blood 10/17/2023 10:5 5 PM DIRECTOR OF INSTITUTIONAL SALES 10/17/2023 11:19 PM DIRECTOR OF INSTITUTIONAL SALES Gamal Fox NP LAB BLOOD ORDERABLES Final Result Performing Organization Address [facility]/ZIP Co de Phone Number [facility] [address] Department [employer] [place] [address] * Lactate (10/17/2023 10:55 PM DIRECTOR OF INSTITUTIONAL SALES) Lactate 0.9 0.7 - 2.0 mmol/L [facility] Blood 10/17/2023 10:5 5 PM DIRECTOR OF INSTITUTIONAL SALES 10/17/2023 11:04 PM DIRECTOR OF INSTITUTIONAL SALES Gamal Fox NP LAB BLOOD ORDERABLES Final Result Performing Organization Address [facility]/ZIP Co de Phone Number [facility] [address] Department of [employer] [place] [address] * Calcium, ionized (10/17/2023 10:55 PM DIRECTOR OF INSTITUTIONAL SALES) [facility] Calcium, Ionized 4.51 4.50 - 5.10 mg/dL [facility] Blood 10/17/2023 10:5 5 PM DIRECTOR OF INSTITUTIONAL SALES 10/17/2023 11:05 PM DIRECTOR OF INSTITUTIONAL SALES Gamal Fox BENCH WORKER APPRENTICE LAB BLOOD ORDERABLES Final Result Performing Organization Address [facility]/ZIP Co de Phone Number [facility] [address] [place] [address] * (ABNORMAL) CBC with auto differential (10/17/2023 10:55 PM DIRECTOR OF INSTITUTIONAL SALES) [facility] WBC 7.7 3.8 - 9.9 K/cumm [facility] Hgb 8.8(L) 13.0 - 17.5 g/dL [facility] Hct 27.2(L) 38.9 - 50.3 % [facility] Plt 165 150 - 400 K/cumm [facility] MPV 11.0 9.1 - 12.3 fL [facility] RBC 2.94(L) 4.30 - 5.80 M/cumm [facility] MCV 92.5 81.3 - 96.4 fL [facility] MCH 29.9 27.1 - 33.3 pg [facility] MCHC 32.4 32.3 - 35.7 g/dL [facility] RDW CV 15.6(H) 11.1 - 14.9 % [facility] RDW SD 50.5(H) 35.7 - 48.1 fL [facility] NRBC abs 0.03(H) 0.00 - 0.01 K/cumm [facility] Blood 10/17/2023 10:5 5 PM DIRECTOR OF INSTITUTIONAL SALES 10/17/2023 11:19 PM DIRECTOR OF INSTITUTIONAL SALES Gamal Fox BENCH WORKER APPRENTICE LAB BLOOD ORDERABLES Final Result Performing Organization Address [facility]/ZIP Co de Phone Number [facility] [address] [place] [address] * POCT glucose (10/17/2023 10:19 PM DIRECTOR OF INSTITUTIONAL SALES) Glucose, POC 97 70 - 140 mg/dL [facility] Comment: For Glucose values <35 mg/dl when Hematocrit is >60 mg/dl,the test may not accurately detect significant hypoglycemia,and testing in the Laboratory should be considered if clinically indicated. Blood 10/17/2023 10:1 9 PM DIRECTOR OF INSTITUTIONAL SALES 10/17/2023 10:19 PM DIRECTOR OF INSTITUTIONAL SALES Jaqueline Valero MD LAB POCT ORDERABLES - APRIL CE Final Result Performing Organization Address [facility] Co de Phone Number [facility] [address] [facility] [employer] [place] [address] * POCT glucose (10/17/2023 9:00 PM DIRECTOR OF INSTITUTIONAL SALES) Glucose, POC 127 70 - 140 mg/dL [facility] Comment: For Glucose values <35 mg/dl when Hematocrit is >60 mg/dl,the test may not accurately detect significant hypoglycemia,and testing in the Laboratory should be considered if clinically indicated. Blood 10/17/2023 9:00 PM DIRECTOR OF INSTITUTIONAL SALES 10/17/2023 9:00 PM DIRECTOR OF INSTITUTIONAL SALES Jaqueline Valero MD LAB POCT ORDERABLES - APRIL CE Final Result Performing Organization Address [facility] Co de Phone Number [facility] [address] [facility] [employer] [place] [address] * Transfuse RBC (10/17/2023 8:13 PM DIRECTOR OF INSTITUTIONAL SALES) Blood Kirsten Burns MD BLOOD TRANSFUSION ORDERA BLES Final Result Performing Organization Address [facility] Co de Phone Number [facility] [address] [facility] [employer] [place] [address] * Transfuse RBC: 1 Units (10/17/2023 8:13 PM DIRECTOR OF INSTITUTIONAL SALES) Blood Kirsten Burns MD BLOOD TRANSFUSION ORDERA BLES Final Result * (ABNORMAL) POCT glucose (10/17/2023 8:07 PM DIRECTOR OF INSTITUTIONAL SALES) Glucose, POC 157(H) 70 - 140 mg/dL [facility] Comment: For Glucose values <35 mg/dl when Hematocrit is >60 mg/dl,the test may not accurately detect significant hypoglycemia,and testing in the Laboratory should be considered if clinically indicated. Blood 10/17/2023 8:07 PM DIRECTOR OF INSTITUTIONAL SALES 10/17/2023 8:07 PM DIRECTOR OF INSTITUTIONAL SALES Jaqueline Valero MD LAB POCT ORDERABLES - APRIL CE Final Result Performing Organization Address [facility] Co de Phone Number [facility] [address] [employer] [place], [place] [phone] * POCT glucose (10/17/2023 7:18 PM DIRECTOR OF INSTITUTIONAL SALES) Glucose, POC 135 70 - 140 mg/dL [facility] Comment: For Glucose values <35 mg/dl when Hematocrit is >60 mg/dl,the test may not accurately detect significant hypoglycemia,and testing in the Laboratory should be considered if clinically indicated. Blood 10/17/2023 7:18 PM DIRECTOR OF INSTITUTIONAL SALES 10/17/2023 7:18 PM DIRECTOR OF INSTITUTIONAL SALES Jaqueline Valero MD LAB POCT ORDERABLES - APRIL CE Final Result Performing Organization Address [facility]/ZIP Co de Phone Number [facility] [address] [facility] [employer] [place], [place] [phone] * Critical Care (10/17/2023 6:42 PM DIRECTOR OF INSTITUTIONAL SALES) Narrative Kirsten Burns MD - 10/17/2023 6:42 PM DIRECTOR OF INSTITUTIONAL SALES Gamal Fox NP ? 10/18/2023 ??5:08 AM [...] plan with the ICU team and other medical/building energy consultant staff, making frequent assessments and decisions [...] Prepare RBC: 1 Units (10/17/2023 6:34 PM DIRECTOR OF INSTITUTIONAL SALES) Product code [id number] Unit Number [id number] [id number] [facility] Product Blood Type APOS [facility] Dispense Status RETURNED [facility] Blood 10/17/2023 6:34 PM DIRECTOR OF INSTITUTIONAL SALES Narrative [facility] - 10/19/2023 7:08 AM DIRECTOR OF INSTITUTIONAL SALES Other indication->Bleeding post cardiac surgery Are special requirements needed? (All products are leukoreduced and CMV- safe)- >No Date required:-[id number] LRRBC # of [id number] Reasons:-Other (specify)} us Kirsten Burns MD BLOOD BANK PRODUCT ORDER ROVERTO Final Result [facility] [address] Department [place] [address] * Potassium (10/17/2023 6:14 PM DIRECTOR OF INSTITUTIONAL SALES) [facility] Potassium, pl 4.2 3.3 - 4.9 mmol/L [facility] Blood 10/17/2023 6:14 PM DIRECTOR OF INSTITUTIONAL SALES 10/17/2023 6:27 PM DIRECTOR OF INSTITUTIONAL SALES Byron Olvera BENCH WORKER APPRENTICE LAB BLOOD ORDERABLES Fi nal Result Performing Organization Address [facility]/ZIP Co de Phone Number [facility] [address] [place] [address] * (ABNORMAL) CBC without differential (10/17/2023 6:12 PM DIRECTOR OF INSTITUTIONAL SALES) [facility] WBC 7.2 3.8 - 9.9 K/cumm [facility] Hgb 8.0(L) 13.0 - 17.5 g/dL [facility] Hct 24.7(L) 38.9 - 50.3 % [facility] [facility] Plt 161 150 - 400 K/cumm [facility] MPV 10.8 9.1 - 12.3 fL [facility] RBC 2.68(L) 4.30 - 5.80 M/cumm [facility] MCV 92.2 81.3 - 96.4 fL [facility] MCH 29.9 27.1 - 33.3 pg [facility] MCHC 32.4 32.3 - 35.7 g/dL [facility] RDW CV 15.5(H) 11.1 - 14.9 % [facility] RDW SD 50.4(H) 35.7 - 48.1 fL [facility] NRBC abs 0.04(H) 0.00 - 0.01 K/cumm [facility] Blood 10/17/2023 6:12 PM DIRECTOR OF INSTITUTIONAL SALES 10/17/2023 6:18 PM DIRECTOR OF INSTITUTIONAL SALES us Dawna Castellanos BENCH WORKER APPRENTICE LAB BLOOD ORDERABLES Ann Marie l Result Performing Organization Address City/[facility]/ZIP Co de Phone Number [facility] [address] [place] [place] [address] * (ABNORMAL) Protime-INR (10/17/2023 6:12 PM DIRECTOR OF INSTITUTIONAL SALES) Pathologist [facility] PT 13.9(H) 10.3 - 13.7 sec [facility] INR 1.22(H) 0.90 - 1.20 [facility] Comment: Interpretive data Oral anticoagulant therapeutic ranges: Venous thromboembolism prophylaxis or treatment: 2.0-3.0 CARDIOLOGY Standard range: 2.0-3.0 High-intensity range: 2.5-3.5 Refer to indication-specific guidelines for appropriate target ranges for prosthetic heart valve replacement. Current interpretive data was last revised on 2019. Blood 10/17/2023 6:12 PM DIRECTOR OF INSTITUTIONAL SALES 10/17/2023 6:18 PM DIRECTOR OF INSTITUTIONAL SALES Dawna Castellanos BENCH WORKER APPRENTICE LAB BLOOD ORDERABLES Ann Marie l Result Performing Organization Address [facility] de Phone Number [facility] [address] [place] [place] [address] * Fibrinogen (10/17/2023 6:12 PM DIRECTOR OF INSTITUTIONAL SALES) [facility] Fibrinogen 386 170 - 400 mg/dL [facility] Blood 10/17/2023 6:12 PM DIRECTOR OF INSTITUTIONAL SALES 10/17/2023 6:18 PM DIRECTOR OF INSTITUTIONAL SALES Dawna Bradshaw Castellanos BENCH WORKER APPRENTICE LAB BLOOD ORDERABLES Ann Marie l Result Performing Organization Address [facility] de Phone Number [facility] [address] [place] [address] * aPTT (10/17/2023 6:12 PM DIRECTOR OF INSTITUTIONAL SALES) [facility] aPTT 32 28 - 38 sec [facility] Comment: Interpretive Data Heparin therapeutic range: 66.0 - 100.0 seconds. Range based on correlation with therapeutic heparin activity range of 0.3 - 0.7 Units/mL. Current interpretive data was last revised on 2023. Blood 10/17/2023 6:12 PM DIRECTOR OF INSTITUTIONAL SALES 10/17/2023 6:18 PM DIRECTOR OF INSTITUTIONAL SALES Dawna Castellanos BENCH WORKER APPRENTICE LAB BLOOD ORDERABLES Ann Marie l Result Performing Organization Address [facility] Co de Phone Number [facility] [address] Department [place] [address] * (ABNORMAL) Blood gas, arterial (10/17/2023 6:12 PM DIRECTOR OF INSTITUTIONAL SALES) pH, Art 7.40 7.35 - 7.45 [facility] PCO2, Arterial 35 35 - 45 mmHg [facility] PO2, Arterial 69(L) 83 - 108 mmHg [facility] HCO3 Art (Calculated) 22 20 - 30 mmol/L [facility] BE, art -2 mmol/L [facility] Comment: Interpretive Data No Reference Range Established Current Interpretive Data was last revised on 2017 O2 Sat Art (Calculated) 94 94 - 98 % [facility] Blood 10/17/2023 6:12 PM DIRECTOR OF INSTITUTIONAL SALES 10/17/2023 6:15 PM DIRECTOR OF INSTITUTIONAL SALES Dawna Castellanos BENCH WORKER APPRENTICE LAB BLOOD ORDERABLES Ann Marie l Result Performing Organization Address [facility] Co de Phone Number [facility] [address] Department [place] [address] * POCT glucose (10/17/2023 6:11 PM DIRECTOR OF INSTITUTIONAL SALES) Glucose, POC 130 70 - 140 mg/dL [facility] Comment: For Glucose values <35 mg/dl when Hematocrit is >60 mg/dl,the test may not accurately detect significant hypoglycemia,and testing in the Laboratory should be considered if clinically indicated. Blood 10/17/2023 6:11 PM DIRECTOR OF INSTITUTIONAL SALES 10/17/2023 6:11 PM DIRECTOR OF INSTITUTIONAL SALES Jaqueline Valero MD LAB POCT ORDERABLES - APRIL CE Final Result Performing Organization Address [facility] Co de Phone Number [facility] [address] Department [employer] [place] [address] * Transfuse plasma Standard plasma (10/17/2023 5:46 PM DIRECTOR OF INSTITUTIONAL SALES) Blood Result [facility] Kristen Burns MD BLOOD TRANSFUSION ORDERA BLES Final Result Performing Organization Address [facility]/ZIP Co de Phone Number [facility] [address] [facility] [place] [address] * Transfuse plasma: 1 Units Standard plasma (10/17/2023 5:46 PM DIRECTOR OF INSTITUTIONAL SALES) Blood Result [facility] Kirsten Burns MD BLOOD TRANSFUSION ORDERA BLES Final Result * Prepare plasma: 1 Units Standard plasma (10/17/2023 5:09 PM DIRECTOR OF INSTITUTIONAL SALES) Product code [id number] Unit Number [id number] [facility] Product Blood Type APOS [facility] Dispense Status PRESUMED TRANSFUSED [facility] Blood (Blood, Venous) 10/17/2023 5:09 PM DIRECTOR OF INSTITUTIONAL SALES Narrative [facility] - 10/17/2023 10:15 PM DIRECTOR OF INSTITUTIONAL SALES Is this plasma order intended for a COVID-19 patient as convalescent plasma?->Standard plasma Special Requirements Needed?->No Date required:-[id number] FFP # of Units:-1-Units Reasons:-Active major bleeding with coagulopathy} Result [facility] Kirsten Burns MD BLOOD BANK PRODUCT ORDER ROVERTO Final Result Performing Organization Address City/[facility]/ZIP Co de Phone Number [facility] [address] Department [employer] [place] [address] * POCT glucose (10/17/2023 4:50 PM DIRECTOR OF INSTITUTIONAL SALES) Glucose, POC 110 70 - 140 mg/dL [facility] Comment: For Glucose values <35 mg/dl when Hematocrit is >60 mg/dl,the test may not accurately detect significant hypoglycemia,and testing in the Laboratory should be considered if clinically indicated. Blood 10/17/2023 4:50 PM DIRECTOR OF INSTITUTIONAL SALES 10/17/2023 4:50 PM DIRECTOR OF INSTITUTIONAL SALES Result [facility] Jaqueline Valero MD LAB POCT ORDERABLES - APRIL CE Final Result Performing Organization Address [facility] de Phone Number [facility] [address] [place], [place] [id number] * Transfuse plasma Standard plasma (10/17/2023 4:33 PM DIRECTOR OF INSTITUTIONAL SALES) Blood Result [facility] Kirsten Burns MD BLOOD TRANSFUSION ORDERA BLES Final Result Performing Organization Address [facility] de Phone Number [facility] [address] [place] [address] * Transfuse plasma: 1 Units Standard plasma (10/17/2023 4:33 PM DIRECTOR OF INSTITUTIONAL SALES) Blood Result [facility] Kirsten Burns MD BLOOD TRANSFUSION ORDERA BLES Final Result * Transfuse RBC (10/17/2023 4:33 PM DIRECTOR OF INSTITUTIONAL SALES) Blood Result [facility] Kirsten Burns MD BLOOD TRANSFUSION ORDERA BLES Final Result Performing Organization Address [facility] de Phone Number [facility] [address] [place] [address] * Transfuse RBC: 1 Units (10/17/2023 4:33 PM DIRECTOR OF INSTITUTIONAL SALES) Blood Result [facility] Kirsten Burns MD BLOOD TRANSFUSION ORDERA BLES Final Result * (ABNORMAL) CBC without differential (10/17/2023 4:32 PM DIRECTOR OF INSTITUTIONAL SALES) WBC 7.2 3.8 - 9.9 K/cumm [facility] Hgb 8.5(L) 13.0 - 17.5 g/dL [facility] Hct 26.4(L) 38.9 - 50.3 % [facility] Plt 166 150 - 400 K/cumm [facility] MPV 10.9 9.1 - 12.3 fL [facility] RBC 2.85(L) 4.30 - 5.80 M/cumm [facility] MCV 92.6 81.3 - 96.4 fL [facility] MCH 29.8 27.1 - 33.3 pg [facility] MCHC 32.2(L) 32.3 - 35.7 g/dL [facility] RDW CV 15.5(H) 11.1 - 14.9 % [facility] RDW SD 51.4(H) 35.7 - 48.1 fL [facility] NRBC abs 0.06(H) 0.00 - 0.01 K/cumm [facility] Blood 10/17/2023 4:32 PM DIRECTOR OF INSTITUTIONAL SALES 10/17/2023 4:37 PM DIRECTOR OF INSTITUTIONAL SALES us Dawna Castellanos BENCH WORKER APPRENTICE LAB BLOOD ORDERABLES Ann Marie l Result Performing Organization Address City/[facility]/ZIP Co de Phone Number [facility] [address] [place] [address] * (ABNORMAL) aPTT (10/17/2023 4:32 PM DIRECTOR OF INSTITUTIONAL SALES) aPTT 63(H) 28 - 38 sec [facility] Comment: Interpretive Data Heparin therapeutic range: 66.0 - 100.0 seconds. Range based on correlation with therapeutic heparin activity range of 0.3 - 0.7 Units/mL. Current interpretive data was last revised on 2023. Blood 10/17/2023 4:32 PM DIRECTOR OF INSTITUTIONAL SALES 10/17/2023 4:37 PM DIRECTOR OF INSTITUTIONAL SALES Dawna Castellanos BENCH WORKER APPRENTICE LAB BLOOD ORDERABLES Ann Marie l Result [facility] [address] Department [employer] [place] [address] * Fibrinogen (10/17/2023 4:32 PM DIRECTOR OF INSTITUTIONAL SALES) Pathologist [facility] Fibrinogen 393 170 - 400 mg/dL [facility] Blood 10/17/2023 4:32 PM DIRECTOR OF INSTITUTIONAL SALES 10/17/2023 4:37 PM DIRECTOR OF INSTITUTIONAL SALES Dawna Castellanos BENCH WORKER APPRENTICE LAB BLOOD ORDERABLES Ann Marie l Result Performing Organization Address [facility] de Phone Number [facility] [address] Department [place] [address] * (ABNORMAL) Protime-INR (10/17/2023 4:32 PM DIRECTOR OF INSTITUTIONAL SALES) [facility] PT 14.0(H) 10.3 - 13.7 sec [facility] INR 1.23(H) 0.90 - 1.20 [facility] Comment: Interpretive data Oral anticoagulant therapeutic ranges: Venous thromboembolism prophylaxis or treatment: 2.0-3.0 CARDIOLOGY Standard range: 2.0-3.0 High-intensity range: 2.5-3.5 Refer to indication-specific guidelines for appropriate target ranges for prosthetic heart valve replacement. Current interpretive data was last revised on 2019. Blood 10/17/2023 4:32 PM DIRECTOR OF INSTITUTIONAL SALES 10/17/2023 4:37 PM DIRECTOR OF INSTITUTIONAL SALES Dawna Castellanos BENCH WORKER APPRENTICE LAB BLOOD ORDERABLES Ann Marie l Result Performing Organization Address [facility] Co de Phone Number [facility] [address] Department [place] [address] * (ABNORMAL) Blood gas, arterial (10/17/2023 4:32 PM DIRECTOR OF INSTITUTIONAL SALES) [facility] pH, Art 7.31(L) 7.35 - 7.45 [facility] PCO2, Arterial 45 35 - 45 mmHg [facility] PO2, Arterial 72(L) 83 - 108 mmHg [facility] HCO3 Art (Calculated) 23 20 - 30 mmol/L [facility] BE, art -4 mmol/L [facility] Comment: Interpretive Data No Reference Range Established Current Interpretive Data was last revised on 2017 O2 Sat Art (Calculated) 93(L) 94 - 98 % [facility] Blood 10/17/2023 4:32 PM DIRECTOR OF INSTITUTIONAL SALES 10/17/2023 4:35 PM DIRECTOR OF INSTITUTIONAL SALES us Dawna Castellanos BENCH WORKER APPRENTICE LAB BLOOD ORDERABLES Ann Marie l Result Performing Organization Address [facility] Co de Phone Number [facility] [address] Department of [employer] [place], [place] [id number] * POCT glucose (10/17/2023 3:51 PM DIRECTOR OF INSTITUTIONAL SALES) [facility] Glucose, POC 98 70 - 140 mg/dL [facility] Comment: For Glucose values <35 mg/dl when Hematocrit is >60 mg/dl,the test may not accurately detect significant hypoglycemia,and testing in the Laboratory should be considered if clinically indicated. Blood 10/17/2023 3:51 PM DIRECTOR OF INSTITUTIONAL SALES 10/17/2023 3:51 PM DIRECTOR OF INSTITUTIONAL SALES Jaqueline Valero MD LAB POCT ORDERABLES - APRIL CE Final Result Performing Organization Address [facility] Co de Phone Number [facility] [address] Department of [employer] [place], [place] [id number] * Prepare plasma: 1 Units Standard plasma (10/17/2023 3:32 PM DIRECTOR OF INSTITUTIONAL SALES) [facility] Product code [id number] Unit Number [id number] [facility] Product Blood Type APOS [facility] Dispense Status PRESUMED TRANSFUSED [facility] Blood (Blood, Venous) 10/17/2023 3:32 PM DIRECTOR OF INSTITUTIONAL SALES Narrative [facility] - 10/17/2023 10:15 PM DIRECTOR OF INSTITUTIONAL SALES Is this plasma order intended for a COVID-19 patient as convalescent plasma?->Standard plasma Special Requirements Needed?->No Date required:-[id number] FFP # of Units:-1-Units Reasons:-Active major bleeding with coagulopathy} Kirsten Burns MD BLOOD BANK PRODUCT ORDER ROVERTO Final Result Performing Organization Address [facility] Co de Phone Number [facility] [address] Department [employer] [place], [place] [id number] * Prepare RBC: 1 Units (10/17/2023 3:32 PM DIRECTOR OF INSTITUTIONAL SALES) [facility] Product code [id number] Unit Number [id number] [facility] Product Blood Type APOS [facility] Dispense Status RETURNED [facility] Blood 10/17/2023 3:32 PM DIRECTOR OF INSTITUTIONAL SALES Narrative [facility] - 10/19/2023 7:08 AM DIRECTOR OF INSTITUTIONAL SALES Are special requirements needed? (All products are leukoreduced and CMV- safe)- >No Date required:-[id number] LRRBC # of [id number] Reasons:-Hemorrhagic shock/Life-threatening bleeding} Kirsten Burns MD BLOOD BANK PRODUCT ORDER ROVERTO Final Result Performing Organization Address [facility] de Phone Number [facility] [address] Department [employer] [place] [address] * POCT glucose (10/17/2023 2:34 PM DIRECTOR OF INSTITUTIONAL SALES) [facility] Glucose, POC 102 70 - 140 mg/dL [facility] Comment: For Glucose values <35 mg/dl when Hematocrit is >60 mg/dl,the test may not accurately detect significant hypoglycemia,and testing in the Laboratory should be considered if clinically indicated. Blood 10/17/2023 2:34 PM DIRECTOR OF INSTITUTIONAL SALES 10/17/2023 2:34 PM DIRECTOR OF INSTITUTIONAL SALES Jaqueline Valero MD LAB POCT ORDERABLES - APIRL CE Final Result Performing Organization Address [facility] Co de Phone Number [facility] [address] Department [employer] [place], [place] [id number] * XR Chest 1 View - Portable (10/17/2023 1:49 PM DIRECTOR OF INSTITUTIONAL SALES) Anatomical Region Laterality Modality Body, Chest N/A Computed Radiogr aphy 10/17/2023 2:01 PM DIRECTOR OF INSTITUTIONAL SALES Impressions 10/17/2023 2:01 PM DIRECTOR OF INSTITUTIONAL SALES Comparison is made to two-view chest radiograph dated 10/16/2023. ??Endotracheal tube projects approximately 4.5 cm above the boni. ??Interval postoperative changes of median sternotomy with sternal wires, sternal plating, for aortic valve replacement. ??Right internal jugular central venous catheter overlies the superior vena cava. ??[place]-Daniel catheter tip projects over the main pulmonary artery. ??Left thoracostomy tube and mediastinal drain. ??Gastric tube courses caudally beneath left hemidiaphragm out of the [id number]. Lung volumes are small with minimal bibasilar atelectasis, left greater than right. ??Possible trace left pleural effusion. ??No pneumothorax. Electronically signed by: Tania Malone M.D. Narrative 10/17/2023 2:01 PM DIRECTOR OF INSTITUTIONAL SALES EXAMINATION: 1 view chest radiograph Procedure Note Tania Malone MD - 10/17/2023 EXAMINATION: 1 view chest radiograph IMPRESSION: Comparison is made to two-view chest radiograph dated 10/16/2023. Endotracheal tube projects approximately 4.5 cm above the boni. Interval postoperative changes of median sternotomy with sternal wires, sternal plating, for aortic valve replacement. Right internal jugular central venous catheter overlies the superior vena cava. [place]-Daniel catheter tip projects over the main pulmonary artery. Left thoracostomy tube and mediastinal drain. Gastric tube courses caudally beneath left hemidiaphragm out of the [id number]. Lung volumes are small with minimal bibasilar atelectasis, left greater than right. Possible trace left pleural effusion. No pneumothorax. Electronically signed by: Tania Malone M.D. Dawna Castellanos BENCH WORKER APPRENTICE IMG XR PROCEDURES Final R esult * Critical Care (10/17/2023 1:44 PM DIRECTOR OF INSTITUTIONAL SALES) Narrative Kirsten Burns MD - 10/17/2023 1:44 PM DIRECTOR OF INSTITUTIONAL SALES Dawna Castellanos NP ? 10/17/2023 ??4:35 PM [...] plan with the ICU team and other medical/building energy consultant staff, making frequent assessments and decisions [...] Final Result * eGFR (10/17/2023 1:27 PM DIRECTOR OF INSTITUTIONAL SALES) [facility] eGFR 5 mL/min/1. 73 m2 [facility] Comment: Interpretive Data Reference Interval [...] last reviewed 2021. Blood 10/17/2023 1:27 PM DIRECTOR OF INSTITUTIONAL SALES 10/17/2023 1:37 PM DIRECTOR OF INSTITUTIONAL SALES Dawna Castellanos BENCH WORKER APPRENTICE LAB BLOOD ORDERABLES Ann Marie l Result Performing Organization Address [facility] Co de Phone Number [facility] [address] [facility] [employer] [place] [address] * Fibrinogen (10/17/2023 1:27 PM DIRECTOR OF INSTITUTIONAL SALES) Fibrinogen 393 170 - 400 mg/dL [facility] Blood 10/17/2023 1:27 PM DIRECTOR OF INSTITUTIONAL SALES 10/17/2023 1:37 PM DIRECTOR OF INSTITUTIONAL SALES Dawna Castellanos BENCH WORKER APPRENTICE LAB BLOOD ORDERABLES Ann Marie l Result Performing Organization Address [facility] Co de Phone Number [facility] [address] Department [employer] [place] [address] * Lactate (10/17/2023 1:27 PM DIRECTOR OF INSTITUTIONAL SALES) Lactate 1.2 0.7 - 2.0 mmol/L [facility] Blood 10/17/2023 1:27 PM DIRECTOR OF INSTITUTIONAL SALES 10/17/2023 1:33 PM DIRECTOR OF INSTITUTIONAL SALES Dawna Castellanos BENCH WORKER APPRENTICE LAB BLOOD ORDERABLES Ann Marie l Result Performing Organization Address [facility] Co de Phone Number [facility] [address] [facility] [place] [address] * aPTT (10/17/2023 1:27 PM DIRECTOR OF INSTITUTIONAL SALES) Pathologist [facility] aPTT 37 28 - 38 sec [facility] Comment: Interpretive Data Heparin therapeutic range: 66.0 - 100.0 seconds. Range based on correlation with therapeutic heparin activity range of 0.3 - 0.7 Units/mL. Current interpretive data was last revised on 2023. Blood 10/17/2023 1:27 PM DIRECTOR OF INSTITUTIONAL SALES 10/17/2023 1:37 PM DIRECTOR OF INSTITUTIONAL SALES Dawna Castellanos BENCH WORKER APPRENTICE LAB BLOOD ORDERABLES Ann Marie l Result Performing Organization Address [facility] Co de Phone Number [facility] [address] [place] [address] * (ABNORMAL) Protime-INR (10/17/2023 1:27 PM DIRECTOR OF INSTITUTIONAL SALES) [facility] PT 14.7(H) 10.3 - 13.7 sec [facility] INR 1.29(H) 0.90 - 1.20 [facility] Comment: Interpretive data Oral anticoagulant therapeutic ranges: Venous thromboembolism prophylaxis or treatment: 2.0-3.0 CARDIOLOGY Standard range: 2.0-3.0 High-intensity range: 2.5-3.5 Refer to indication-specific guidelines for appropriate target ranges for prosthetic heart valve replacement. Current interpretive data was last revised on 2019. Blood 10/17/2023 1:27 PM DIRECTOR OF INSTITUTIONAL SALES 10/17/2023 1:37 PM DIRECTOR OF INSTITUTIONAL SALES Dawna Castellanos BENCH WORKER APPRENTICE LAB BLOOD ORDERABLES Ann Marie l Result Performing Organization Address [facility]/ZIP Co de Phone Number [facility] [address] [place] [address] * (ABNORMAL) CBC without differential (10/17/2023 1:27 PM DIRECTOR OF INSTITUTIONAL SALES) Pathologist [facility] WBC 7.4 3.8 - 9.9 K/cumm [facility] Hgb 8.4(L) 13.0 - 17.5 g/dL [facility] Hct 26.0(L) 38.9 - 50.3 % [facility] Plt 167 150 - 400 K/cumm [facility] MPV 10.7 9.1 - 12.3 fL [facility] RBC 2.85(L) 4.30 - 5.80 M/cumm [facility] MCV 91.2 81.3 - 96.4 fL [facility] MCH 29.5 27.1 - 33.3 pg [facility] MCHC 32.3 32.3 - 35.7 g/dL [facility] RDW CV 15.4(H) 11.1 - 14.9 % [facility] RDW SD 49.8(H) 35.7 - 48.1 fL [facility] NRBC abs 0.06(H) 0.00 - 0.01 K/cumm [facility] Blood 10/17/2023 1:27 PM DIRECTOR OF INSTITUTIONAL SALES 10/17/2023 1:37 PM DIRECTOR OF INSTITUTIONAL SALES us Dawna Castellanos BENCH WORKER APPRENTICE LAB BLOOD ORDERABLES Ann Marie kramer Result [facility] [address] Department [place] [address] * (ABNORMAL) Blood gas, arterial (10/17/2023 1:27 PM DIRECTOR OF INSTITUTIONAL SALES) pH, Art 7.36 7.35 - 7.45 [facility] PCO2, Arterial 42 35 - 45 mmHg [facility] PO2, Arterial 65(L) 83 - 108 mmHg [facility] HCO3 Art (Calculated) 24 20 - 30 mmol/L [facility] BE, art -2 mmol/L [facility] Comment: Interpretive Data No Reference Range Established Current Interpretive Data was last revised on 2017 O2 Sat Art (Calculated) 92(L) 94 - 98 % [facility] Blood 10/17/2023 1:27 PM DIRECTOR OF INSTITUTIONAL SALES 10/17/2023 1:33 PM DIRECTOR OF INSTITUTIONAL SALES Dawna Castellanos BENCH WORKER APPRENTICE LAB BLOOD ORDERABLES Ann Marie l Result Performing Organization Address City/[facility]/ZIP Co de Phone Number [facility] [address] [facility] [employer] [place], [place] [id number] * Calcium, ionized (10/17/2023 1:27 PM DIRECTOR OF INSTITUTIONAL SALES) [facility] Calcium, Ionized 4.51 4.50 - 5.10 mg/dL [facility] Blood 10/17/2023 1:27 PM DIRECTOR OF INSTITUTIONAL SALES 10/17/2023 1:34 PM DIRECTOR OF INSTITUTIONAL SALES Dawna Castellanos BENCH WORKER APPRENTICE LAB BLOOD ORDERABLES Ann Marie l Result Performing Organization Address [facility] Co de Phone Number [facility] [address] [facility] [employer] [place] [address] * Magnesium (10/17/2023 1:27 PM DIRECTOR OF INSTITUTIONAL SALES) [facility] Magnesium 2.3 1.4 - 2.5 mg/dL [facility] Blood 10/17/2023 1:27 PM DIRECTOR OF INSTITUTIONAL SALES 10/17/2023 1:37 PM DIRECTOR OF INSTITUTIONAL SALES Dawna Castellanos BENCH WORKER APPRENTICE LAB BLOOD ORDERABLES Ann Marie l Result Performing Organization Address [facility] Co de Phone Number [facility] [address] Department [employer] [place] [address] * (ABNORMAL) Basic metabolic panel (10/17/2023 1:27 PM DIRECTOR OF INSTITUTIONAL SALES) Pathologist [facility] Sodium 139 135 - 145 mmol/L [facility] Potassium, pl 3.8 3.3 - 4.9 mmol/L [facility] Chloride 98 97 - 110 mmol/L [facility] CO2 23 22 - 32 mmol/L [facility] Anion gap 18(H) 2 - 15 mmol/L [facility] BUN 75(H) 6 - 25 mg/dL [facility] Creatinine 10.43(H) 0.80 - 1.30 mg/dL [facility] Glucose 119 70 - 199 mg/dL [facility] Comment: Interpretive Data Fasting glucose [...] 2022. Calcium 8.9 8.5 - 10.3 mg/dL [facility] Blood 10/17/2023 1:27 PM DIRECTOR OF INSTITUTIONAL SALES 10/17/2023 1:37 PM DIRECTOR OF INSTITUTIONAL SALES Dawna Castellanos BENCH WORKER APPRENTICE LAB BLOOD ORDERABLES Ann Marie l Result Performing Organization Address [facility] Co de Phone Number [facility] [address] [place] [address] * (ABNORMAL) Phosphorus (10/17/2023 1:27 PM DIRECTOR OF INSTITUTIONAL SALES) Pathologist [facility] Phosphorus, pl 6.1(H) 2.3 - 4.5 mg/dL [facility] Blood 10/17/2023 1:27 PM DIRECTOR OF INSTITUTIONAL SALES 10/17/2023 1:37 PM DIRECTOR OF INSTITUTIONAL SALES Dawna Castellanos BENCH WORKER APPRENTICE LAB BLOOD ORDERABLES Ann Marie l Result Performing Organization Address City/[facility]/ZIP Co de Phone Number [facility] [address] [place] [address] * POCT glucose (10/17/2023 1:25 PM DIRECTOR OF INSTITUTIONAL SALES) Glucose, POC 137 70 - 140 mg/dL [facility] Comment: For Glucose values <35 mg/dl when Hematocrit is >60 mg/dl,the test may not accurately detect significant hypoglycemia,and testing in the Laboratory should be considered if clinically indicated. Blood 10/17/2023 1:25 PM DIRECTOR OF INSTITUTIONAL SALES 10/17/2023 1:25 PM DIRECTOR OF INSTITUTIONAL SALES us Jovani Kat DO LAB POCT ORDERABLES - DE VICE Final Result Performing Organization Address City/[facility]/ZIP Co de Phone Number [facility] [address] Department of [employer] [place] [address] * POC Activated Clotting Time, High Range (10/17/2023 12:26 PM DIRECTOR OF INSTITUTIONAL SALES) [facility] ACT 104 87 - 138 sec [facility] Blood 10/17/2023 12:2 6 PM DIRECTOR OF INSTITUTIONAL SALES 10/17/2023 12:26 PM DIRECTOR OF INSTITUTIONAL SALES us Jaqueline Valero MD LAB BLOOD ORDERABLES Final Result Performing Organization Address [facility] Co de Phone Number [facility] [address] Department [place] [employer] [place] [address] * (ABNORMAL) POC Blood Gas and Chemistries, Arterial - (10/17/2023 12:26 PM DIRECTOR OF INSTITUTIONAL SALES) [facility] pH, Art POC 7.31(L) 7.35 - 7.45 [facility] pCO2, Art POC 48(H) 35 - 45 mmHg [facility] pO2, Art POC 112(H) 80 - 108 mmHg [facility] Na, POC 134(L) 135 - 145 mmol/L [facility] K POC 4.0 3.3 - 4.9 mmol/L [facility] Comment: Interpretive Data This method is not able to assess for hemolysis, which may falsely increase potassium concentrations. If further testing is needed to evaluate this result, consider in-laboratory plasma potassium. Current Interpretive Data was last revised on 2022. Cl, POC 97 97 - 110 mmol/L [facility] Ionized Ca, POC 4.80 4.50 - 5.10 mg/dL [facility] Glucose, POC 147 70 - 199 mg/dL [facility] Lactate, POC 2.9(H) 0.0 - 2.0 mmol/L [facility] O2Hb, Art POC 96.7(H) 90.0 - 95.0 % [facility] Carboxhgb fract 0.8 0.0 - 2.9 % [facility] Methemoglobin 0.6 0.0 - 1.9 % [facility] HHb, POC 1.9 0.0 - 5.0 % [facility] SO2 (oren) arterial 98(H) 90 - 95 % [facility] Total CO2, Art POC 26 22 - 32 mmol/L [facility] BE, art, POC -2.1(L) -2.0 - 2.0 mmol/L [facility] HCO3, Art POC 23 20 - 30 mmol/L [facility] Hct, POC 24.0(L) 38.9 - 50.3 % [facility] Total Hb, POC 8.1(L) 13.0 - 17.5 g/dL [facility] Blood 10/17/2023 12:2 6 PM DIRECTOR OF INSTITUTIONAL SALES 10/17/2023 12:26 PM DIRECTOR OF INSTITUTIONAL SALES Jovani Kat DO LAB POCT ORDERABLES - DE VICE Final Result Performing Organization Address City/[facility]/ZIP Co de Phone Number [facility] [address] [facility] [employer] [place] [address] * Transfuse platelets (10/17/2023 12:24 PM DIRECTOR OF INSTITUTIONAL SALES) Blood Ayden Alan MD BLOOD TRANSFUSION ORDERABLES F inal Result [facility] [address] [facility] [employer] [place], [place] [id number] * Transfuse RBC (10/17/2023 12:11 PM DIRECTOR OF INSTITUTIONAL SALES) Blood us Ayden Alna MD BLOOD TRANSFUSION ORDERABLES F inal Result [facility] [address] [facility] [employer] [place], [place] [id number] * Prepare RBC: 2 Units (10/17/2023 12:11 PM DIRECTOR OF INSTITUTIONAL SALES) Product code [id number] Unit Number [id number] [facility] Product Blood Type APOS [facility] Dispense Status PRESUMED TRANSFUSED [facility] Product code [id number] [facility] Unit Number [id number] [facility] Product Blood Type [facility] Dispense Status PRESUMED TRANSFUSED [facility] Blood 10/17/2023 12:1 1 PM DIRECTOR OF INSTITUTIONAL SALES Narrative [facility] - 10/18/2023 10:15 PM DIRECTOR OF INSTITUTIONAL SALES Are special requirements needed? (All products are leukoreduced and CMV- safe)- >No Date required:-[id number] LRRBC # of [id number] Reasons:-Intra-op transfusion} Jaqueline Valero MD BLOOD BANK PRODUCT ORDERAB LES Final Result Performing Organization Address [facility] Co de Phone Number [facility] [address] Department [employer] [place], [place] [id number] * Transfuse cryoprecipitate (pooled units) (10/17/2023 12:05 PM DIRECTOR OF INSTITUTIONAL SALES) Blood Ayden Alan MD BLOOD TRANSFUSION ORDERABLES F inal Result Performing Organization Address [facility]/ZIP Co de Phone Number [facility] [address] Department [place] [employer] [place] [address] * Transfuse cryoprecipitate (pooled units) (10/17/2023 12:05 PM DIRECTOR OF INSTITUTIONAL SALES) Blood us Ayden Alan MD BLOOD TRANSFUSION ORDERABLES F inal Result Performing Organization Address [facility]/ZIP Co de Phone Number [facility] [address] Department [place] [employer] [place] [address] * Transfuse plasma (10/17/2023 12:04 PM DIRECTOR OF INSTITUTIONAL SALES) Blood Ayden Alan MD BLOOD TRANSFUSION ORDERABLES F inal Result [facility] [address] Department [place] [employer] [place] [address] * Transfuse plasma (10/17/2023 12:04 PM DIRECTOR OF INSTITUTIONAL SALES) Blood Ayden Alan MD BLOOD TRANSFUSION ORDERABLES F inal Result Performing Organization Address [facility] Co de Phone Number [facility] [address] Department [employer] [place] [address] * (ABNORMAL) POC Blood Gas and Chemistries, Arterial - (10/17/2023 11:51 AM DIRECTOR OF INSTITUTIONAL SALES) pH, Art POC 7.36 7.35 - 7.45 [facility] pCO2, Art POC 39 35 - 45 mmHg [facility] pO2, Art POC 407(H) 80 - 108 mmHg [facility] Na, POC 131(L) 135 - 145 mmol/L [facility] K POC 5.5(H) 3.3 - 4.9 mmol/L [facility] Comment: Interpretive Data This method is not able to assess for hemolysis, which may falsely increase potassium concentrations. If further testing is needed to evaluate this result, consider in-laboratory plasma potassium. Current Interpretive Data was last revised on 2022. Cl, POC 97 97 - 110 mmol/L [facility] Ionized Ca, POC 3.99(L) 4.50 - 5.10 mg/dL [facility] Glucose, POC 115 70 - 199 mg/dL [facility] Lactate, POC 2.8(H) 0.0 - 2.0 mmol/L [facility] O2Hb, Art POC 97.2(H) 90.0 - 95.0 % [facility] Carboxhgb fract 0.0 0.0 - 2.9 % [facility] Methemoglobin 0.9 0.0 - 1.9 % [facility] HHb, POC 1.9 0.0 - 5.0 % [facility] SO2 (oren) arterial 98(H) 90 - 95 % [facility] Total CO2, Art POC 23 22 - 32 mmol/L [facility] BE, art, POC -3.2(L) -2.0 - 2.0 mmol/L [facility] HCO3, Art POC 22 20 - 30 mmol/L [facility] Hct, POC 24.0(L) 38.9 - 50.3 % [facility] Total Hb, POC 7.9(L) 13.0 - 17.5 g/dL [facility] Blood 10/17/2023 11:5 1 AM DIRECTOR OF INSTITUTIONAL SALES 10/17/2023 11:51 AM DIRECTOR OF INSTITUTIONAL SALES us Jovani Kat DO LAB POCT ORDERABLES - DE VICE Final Result Performing Organization Address [facility]/ZIP Co de Phone Number [facility] [address] Department [place] [employer] [place] [address] * (ABNORMAL) POC Activated Clotting Time, High Range (10/17/2023 11:50 AM DIRECTOR OF INSTITUTIONAL SALES) ACT 507(H) 87 - 138 sec [facility] Blood 10/17/2023 11:5 0 AM DIRECTOR OF INSTITUTIONAL SALES 10/17/2023 11:50 AM DIRECTOR OF INSTITUTIONAL SALES Jaqueline Valero MD LAB BLOOD ORDERABLES Final Result Performing Organization Address [facility]/ZIP Co de Phone Number [facility] [address] Department [place] [employer] [place] [address] * (ABNORMAL) POC Activated Clotting Time, High Range (10/17/2023 11:22 AM DIRECTOR OF INSTITUTIONAL SALES) ACT 582(H) 87 - 138 sec [facility] Blood 10/17/2023 11:2 2 AM DIRECTOR OF INSTITUTIONAL SALES 10/17/2023 11:22 AM DIRECTOR OF INSTITUTIONAL SALES Jaqueline Valero MD LAB BLOOD ORDERABLES Final Result [facility] [address] Department [place] [address] * (ABNORMAL) POC Blood Gas and Chemistries, Arterial - (10/17/2023 11:20 AM DIRECTOR OF INSTITUTIONAL SALES) pH, Art POC 7.32(L) 7.35 - 7.45 [facility] pCO2, Art POC 41 35 - 45 mmHg [facility] pO2, Art POC 362(H) 80 - 108 mmHg [facility] Na, POC 130(L) 135 - 145 mmol/L [facility] K POC 4.5 3.3 - 4.9 mmol/L [facility] Comment: Interpretive Data This method is not able to assess for hemolysis, which may falsely increase potassium concentrations. If further testing is needed to evaluate this result, consider in-laboratory plasma potassium. Current Interpretive Data was last revised on 2022. Cl, POC 97 97 - 110 mmol/L [facility] Ionized Ca, POC 4.19(L) 4.50 - 5.10 mg/dL [facility] Glucose, POC 133 70 - 199 mg/dL [facility] Lactate, POC 2.1(H) 0.0 - 2.0 mmol/L [facility] O2Hb, Art POC 97.8(H) 90.0 - 95.0 % [facility] Carboxhgb fract 0.1 0.0 - 2.9 % [facility] Methemoglobin 0.5 0.0 - 1.9 % [facility] HHb, POC 1.6 0.0 - 5.0 % [facility] SO2 (oren) arterial 98(H) 90 - 95 % [facility] Total CO2, Art POC 22 22 - 32 mmol/L [facility] BE, art, POC -4.7(L) -2.0 - 2.0 mmol/L [facility] HCO3, Art POC 21 20 - 30 mmol/L [facility] Hct, POC 25.0(L) 38.9 - 50.3 % [facility] Total Hb, POC 8.2(L) 13.0 - 17.5 g/dL [facility] Blood 10/17/2023 11:2 0 AM DIRECTOR OF INSTITUTIONAL SALES 10/17/2023 11:20 AM DIRECTOR OF INSTITUTIONAL SALES Jovani Kat DO LAB POCT ORDERABLES - DE VICE Final Result Performing Organization Address [facility] Co de Phone Number [facility] [address] [facility] [employer] [place] [address] * (ABNORMAL) POC Activated Clotting Time, High Range (10/17/2023 11:05 AM DIRECTOR OF INSTITUTIONAL SALES) ACT 533(H) 87 - 138 sec [facility] Blood 10/17/2023 11:0 5 AM DIRECTOR OF INSTITUTIONAL SALES 10/17/2023 11:05 AM DIRECTOR OF INSTITUTIONAL SALES Jaqueline Valero MD LAB BLOOD ORDERABLES Final Result Performing Organization Address [facility] Co de Phone Number [facility] [address] [facility] [employer] [place] [address] * (ABNORMAL) POC Activated Clotting Time, High Range (10/17/2023 10:53 AM DIRECTOR OF INSTITUTIONAL SALES) ACT 494(H) 87 - 138 sec [facility] Blood 10/17/2023 10:5 3 AM DIRECTOR OF INSTITUTIONAL SALES 10/17/2023 10:53 AM DIRECTOR OF INSTITUTIONAL SALES Jaqueline Valero MD LAB BLOOD ORDERABLES Final Result Performing Organization Address [facility] Co de Phone Number [facility] [address] [facility] [employer] [place] [address] * (ABNORMAL) POC Activated Clotting Time, High Range (10/17/2023 10:38 AM DIRECTOR OF INSTITUTIONAL SALES) ACT 583(H) 87 - 138 sec [facility] Blood 10/17/2023 10:3 8 AM DIRECTOR OF INSTITUTIONAL SALES 10/17/2023 10:38 AM DIRECTOR OF INSTITUTIONAL SALES us Jaqueline Valero MD LAB BLOOD ORDERABLES Final Result [facility] [address] Department [place] [address] * (ABNORMAL) POC Blood Gas and Chemistries, Arterial - (10/17/2023 10:38 AM DIRECTOR OF INSTITUTIONAL SALES) pH, Art POC 7.34(L) 7.35 - 7.45 [facility] pCO2, Art POC 42 35 - 45 mmHg [facility] pO2, Art POC 357(H) 80 - 108 mmHg [facility] Na, POC 132(L) 135 - 145 mmol/L [facility] K POC 4.7 3.3 - 4.9 mmol/L [facility] Comment: Interpretive Data This method is not able to assess for hemolysis, which may falsely increase potassium concentrations. If further testing is needed to evaluate this result, consider in-laboratory plasma potassium. Current Interpretive Data was last revised on 2022. Cl, POC 96(L) 97 - 110 mmol/L [facility] Ionized Ca, POC 4.18(L) 4.50 - 5.10 mg/dL [facility] Glucose, POC 170 70 - 199 mg/dL [facility] Lactate, POC 1.8 0.0 - 2.0 mmol/L [facility] O2Hb, Art POC 97.7(H) 90.0 - 95.0 % [facility] Carboxhgb fract 0.0 0.0 - 2.9 % [facility] Methemoglobin 0.7 0.0 - 1.9 % [facility] HHb, POC 1.5 0.0 - 5.0 % [facility] SO2 (oren) arterial 98(H) 90 - 95 % [facility] Total CO2, Art POC 24 22 - 32 mmol/L [facility] BE, art, POC -2.9(L) -2.0 - 2.0 mmol/L [facility] HCO3, Art POC 23 20 - 30 mmol/L [facility] Hct, POC 24.0(L) 38.9 - 50.3 % [facility] Total Hb, POC 8.0(L) 13.0 - 17.5 g/dL [facility] Blood 10/17/2023 10:3 8 AM DIRECTOR OF INSTITUTIONAL SALES 10/17/2023 10:38 AM DIRECTOR OF INSTITUTIONAL SALES us Jovani Kat DO LAB POCT ORDERABLES - DE VICE Final Result Performing Organization Address City/[facility]/ZIP Co de Phone Number [facility] [address] Department [place] [address] * (ABNORMAL) POC Activated Clotting Time, High Range (10/17/2023 10:24 AM DIRECTOR OF INSTITUTIONAL SALES) ACT 505(H) 87 - 138 sec [facility] Blood 10/17/2023 10:2 4 AM DIRECTOR OF INSTITUTIONAL SALES 10/17/2023 10:24 AM DIRECTOR OF INSTITUTIONAL SALES Jaqueline Valero MD LAB BLOOD ORDERABLES Final Result Performing Organization Address [facility]/ZIP Co de Phone Number [facility] [address] Department [place] [address] * (ABNORMAL) POC Blood Gas and Chemistries, Venous - (10/17/2023 10:21 AM DIRECTOR OF INSTITUTIONAL SALES) pH, Juice POC 7.27(L) 7.32 - 7.45 [facility] pCO2, juice POC 53(H) 40 - 50 mmHg [facility] pO2, juice POC 43(H) 35 - 42 mmHg [facility] Na, POC 133(L) 135 - 145 mmol/L [facility] K POC 4.9 3.3 - 4.9 mmol/L [facility] Comment: Interpretive Data This method is not able to assess for hemolysis, which may falsely increase potassium concentrations. If further testing is needed to evaluate this result, consider in-laboratory plasma potassium. Current Interpretive Data was last revised on 2022. Cl, POC 95(L) 97 - 110 mmol/L [facility] Ionized Ca, POC 4.19(L) 4.50 - 5.10 mg/dL [facility] Glucose, POC 182 70 - 199 mg/dL [facility] Lactate, POC 1.5 0.0 - 2.0 mmol/L [facility] O2Hb, Juice POC 67.4(L) 90.0 - 95.0 % [facility] Carboxhgb fract 0.8 0.0 - 2.9 % [facility] Methemoglobin 0.7 0.0 - 1.9 % [facility] HHb, POC 31.0(H) 0.0 - 5.0 % [facility] O2 Sat, Juice POC (Oren) 68 68 - 77 % [facility] Total CO2, juice POC 26 22 - 32 mmol/L [facility] Base excess, juice POC -2.6 mmol/L [facility] HCO3, Juice POC 22 20 - 30 mmol/L [facility] Hct, POC 23.0(L) 38.9 - 50.3 % [facility] Total Hb, POC 7.6(L) 13.0 - 17.5 g/dL [facility] Blood 10/17/2023 10:2 1 AM DIRECTOR OF INSTITUTIONAL SALES 10/17/2023 10:21 AM DIRECTOR OF INSTITUTIONAL SALES us Jovani Kat DO LAB POCT ORDERABLES - DE VICE Final Result Performing Organization Address City/[facility]/ZIP Co de Phone Number [facility] [address] Department [employer] [place] [address] * (ABNORMAL) POC Activated Clotting Time, High Range (10/17/2023 10:12 AM DIRECTOR OF INSTITUTIONAL SALES) ACT 467(H) 87 - 138 sec [facility] Blood 10/17/2023 10:1 2 AM DIRECTOR OF INSTITUTIONAL SALES 10/17/2023 10:12 AM DIRECTOR OF INSTITUTIONAL SALES us Jaqueline Valero MD LAB BLOOD ORDERABLES Final Result [facility] [address] Department of [employer] [place] [address] * (ABNORMAL) POC Blood Gas and Chemistries, Arterial - (10/17/2023 10:11 AM DIRECTOR OF INSTITUTIONAL SALES) pH, Art POC 7.25(L) 7.35 - 7.45 [facility] pCO2, Art POC 40 35 - 45 mmHg [facility] pO2, Art POC 400(H) 80 - 108 mmHg [facility] Na, POC 129(L) 135 - 145 mmol/L [facility] K POC 4.6 3.3 - 4.9 mmol/L [facility] Comment: Interpretive Data This method is not able to assess for hemolysis, which may falsely increase potassium concentrations. If further testing is needed to evaluate this result, consider in-laboratory plasma potassium. Current Interpretive Data was last revised on 2022. Cl, POC 96(L) 97 - 110 mmol/L [facility] Ionized Ca, POC 4.08(L) 4.50 - 5.10 mg/dL [facility] Glucose, POC 182 70 - 199 mg/dL [facility] Lactate, POC 1.3 0.0 - 2.0 mmol/L [facility] O2Hb, Art POC 98.1(H) 90.0 - 95.0 % [facility] Carboxhgb fract 0.3 0.0 - 2.9 % [facility] Methemoglobin 0.6 0.0 - 1.9 % [facility] HHb, POC 0.9 0.0 - 5.0 % [facility] SO2 (oren) arterial 99(H) 90 - 95 % [facility] Total CO2, Art POC 19(L) 22 - 32 mmol/L [facility] BE, art, POC -9.0(L) -2.0 - 2.0 mmol/L [facility] HCO3, Art POC 18(L) 20 - 30 mmol/L [facility] Hct, POC 22.0(L) 38.9 - 50.3 % [facility] Total Hb, POC 7.4(L) 13.0 - 17.5 g/dL [facility] Blood 10/17/2023 10:1 1 AM DIRECTOR OF INSTITUTIONAL SALES 10/17/2023 10:11 AM DIRECTOR OF INSTITUTIONAL SALES us Jovani Kat DO LAB POCT ORDERABLES - DE VICE Final Result [facility] [address] Department [place] [address] * (ABNORMAL) POC Blood Gas and Chemistries, Arterial - (10/17/2023 9:47 AM DIRECTOR OF INSTITUTIONAL SALES) pH, Art POC 7.30(L) 7.35 - 7.45 [facility] pCO2, Art POC 40 35 - 45 mmHg [facility] pO2, Art POC 65(L) 80 - 108 mmHg [facility] Na, POC 130(L) 135 - 145 mmol/L [facility] K POC 4.3 3.3 - 4.9 mmol/L [facility] Comment: Interpretive Data This method is not able to assess for hemolysis, which may falsely increase potassium concentrations. If further testing is needed to evaluate this result, consider in-laboratory plasma potassium. Current Interpretive Data was last revised on 2022. Cl, POC 97 97 - 110 mmol/L [facility] Ionized Ca, POC 4.39(L) 4.50 - 5.10 mg/dL [facility] Glucose, POC 202(H) 70 - 199 mg/dL [facility] Lactate, POC 1.1 0.0 - 2.0 mmol/L [facility] O2Hb, Art POC 90.8 90.0 - 95.0 % [facility] Carboxhgb fract 0.7 0.0 - 2.9 % [facility] Methemoglobin 0.0 0.0 - 1.9 % [facility] HHb, POC 8.5(H) 0.0 - 5.0 % [facility] SO2 (oren) arterial 91 90 - 95 % [facility] Total CO2, Art POC 21(L) 22 - 32 mmol/L [facility] BE, art, POC -6.2(L) -2.0 - 2.0 mmol/L [facility] HCO3, Art POC 20 20 - 30 mmol/L [facility] Hct, POC 26.0(L) 38.9 - 50.3 % [facility] Total Hb, POC 8.6(L) 13.0 - 17.5 g/dL [facility] Blood 10/17/2023 9:47 AM DIRECTOR OF INSTITUTIONAL SALES 10/17/2023 9:47 AM DIRECTOR OF INSTITUTIONAL SALES us Jovani Kat DO LAB POCT ORDERABLES - DE VICE Final Result Performing Organization Address [facility] Co de Phone Number [facility] [address] Department [place] [address] * (ABNORMAL) POC Activated Clotting Time, High Range (10/17/2023 9:44 AM DIRECTOR OF INSTITUTIONAL SALES) ACT 428(H) 87 - 138 sec [facility] Blood 10/17/2023 9:44 AM DIRECTOR OF INSTITUTIONAL SALES 10/17/2023 9:44 AM DIRECTOR OF INSTITUTIONAL SALES us Jaqueline Valero MD LAB BLOOD ORDERABLES Final Result Performing Organization Address [facility] Co de Phone Number [facility] [address] Department [place] [address] * Prepare cryoprecipitate (pooled units): 2 Units (10/17/2023 9:12 AM DIRECTOR OF INSTITUTIONAL SALES) [facility] Product code [id number] Unit Number [id number] [facility] Product Blood Type OPOS [facility] Dispense Status PRESUMED TRANSFUSED [facility] Product code [id number] [facility] Unit Number [id number] [facility] Product Blood Type OPOS [facility] Dispense Status PRESUMED TRANSFUSED [facility] Blood (Blood, Venous) 10/17/2023 9:12 AM DIRECTOR OF INSTITUTIONAL SALES Narrative [facility] - 10/17/2023 10:15 PM DIRECTOR OF INSTITUTIONAL SALES Other indication->CTOR Cryo # of [id number] Reasons:-Other (Specify)} us Ayden Alan MD BLOOD BANK PRODUCT ORDERABLES Final Result Performing Organization Address [facility] Co de Phone Number [facility] [address] Department of [employer] [place] [address] * Prepare plasma: 2 Units (10/17/2023 9:12 AM DIRECTOR OF INSTITUTIONAL SALES) Product code [id number] [facility] Unit Number [id number] [facility] Product Blood Type APOS [facility] Dispense Status PRESUMED TRANSFUSED [facility] Product code [id number] Unit Number [id number] [facility] Product Blood Type ANEG [facility] Dispense Status PRESUMED TRANSFUSED [facility] Blood (Blood, Venous) 10/17/2023 9:12 AM DIRECTOR OF INSTITUTIONAL SALES Narrative [facility] - 10/17/2023 10:15 PM DIRECTOR OF INSTITUTIONAL SALES Other indication->CTOR Date required:-20231017 FFP # of Units:-2-Units Reasons:-Other (Specify)} Ayden Alan MD BLOOD BANK PRODUCT ORDERABLES Final Result Performing Organization Address [facility] de Phone Number [facility] [address] [facility] [employer] [place] [address] * Prepare platelets: 1 Units (10/17/2023 9:12 AM DIRECTOR OF INSTITUTIONAL SALES) Product code [id number] Unit Number [id number] [facility] Product Blood Type BPOS [facility] Dispense Status PRESUMED TRANSFUSED [facility] Blood (Blood, Venous) 10/17/2023 9:12 AM DIRECTOR OF INSTITUTIONAL SALES Narrative [facility] - 10/17/2023 10:15 PM DIRECTOR OF INSTITUTIONAL SALES Other indication->CTOR Are special requirements needed? (all products are leukoreduced)->No Date required:-20231017 PLT # of Units:-1-Units Reasons:-Other (Specify)} Ayden Alan MD BLOOD BANK PRODUCT ORDERABLES Final Result Performing Organization Address [facility] de Phone Number [facility] [address] [place] [address] * POC Activated Clotting Time, High Range (10/17/2023 8:19 AM DIRECTOR OF INSTITUTIONAL SALES) [facility] ACT 97 87 - 138 sec [facility] Blood 10/17/2023 8:19 AM DIRECTOR OF INSTITUTIONAL SALES 10/17/2023 8:19 AM DIRECTOR OF INSTITUTIONAL SALES Jaqueline Valero MD LAB BLOOD ORDERABLES Final Result Performing Organization Address [facility] de Phone Number [facility] [address] Department [place] [address] * (ABNORMAL) POCT glucose (10/17/2023 7:47 AM DIRECTOR OF INSTITUTIONAL SALES) [facility] Glucose, POC 279(H) 70 - 140 mg/dL [facility] Comment: For Glucose values <35 mg/dl when Hematocrit is >60 mg/dl,the test may not accurately detect significant hypoglycemia,and testing in the Laboratory should be considered if clinically indicated. Blood 10/17/2023 7:47 AM DIRECTOR OF INSTITUTIONAL SALES 10/17/2023 7:47 AM DIRECTOR OF INSTITUTIONAL SALES Result [facility] Jovani Kat DO LAB POCT ORDERABLES - DE VICE Final Result Performing Organization Address [facility] de Phone Number [facility] [address] Department [place] [address] * (ABNORMAL) POCT glucose (10/17/2023 5:50 AM DIRECTOR OF INSTITUTIONAL SALES) [facility] Glucose, POC 307(H) 70 - 140 mg/dL [facility] Comment: For Glucose values <35 mg/dl when Hematocrit is >60 mg/dl,the test may not accurately detect significant hypoglycemia,and testing in the Laboratory should be considered if clinically indicated. Blood 10/17/2023 5:50 AM DIRECTOR OF INSTITUTIONAL SALES 10/17/2023 5:50 AM DIRECTOR OF INSTITUTIONAL SALES Frank Cody MD LAB POCT ORDERABLES - DEVICE Fin al Result Performing Organization Address [facility]/State/ZIP Co de Phone Number [facility] [address] Department [place] [address] * [place] Carotids (10/17/2023 5:10 AM DIRECTOR OF INSTITUTIONAL SALES) Anatomical Region Laterality Modality Vascular Bilateral Ultrasound 10/17/2023 1:01 PM DIRECTOR OF INSTITUTIONAL SALES Impressions 10/17/2023 1:01 PM DIRECTOR OF INSTITUTIONAL SALES 1) ??Plaquing of the right internal carotid [...] (SRU) Consensus Conference. Electronically signed by: MD Lius Snyder 10/17/2023 1:01 PM DIRECTOR OF INSTITUTIONAL SALES DATE:10/17/2023 4:30 AM EXAM: Duplex imaging of [...] * (ABNORMAL) POCT glucose (10/17/2023 2:29 AM DIRECTOR OF INSTITUTIONAL SALES) Glucose, POC 288(H) 70 - 140 mg/dL [facility] Comment: For Glucose values <35 mg/dl when Hematocrit is >60 mg/dl,the test may not accurately detect significant hypoglycemia,and testing in the Laboratory should be considered if clinically indicated. Blood 10/17/2023 2:29 AM DIRECTOR OF INSTITUTIONAL SALES 10/17/2023 2:29 AM DIRECTOR OF INSTITUTIONAL SALES Frank Cody MD LAB POCT ORDERABLES - DEVICE Fin al Result Performing Organization Address [facility] Co de Phone Number [facility] [address] Department [place] [address] * (ABNORMAL) POCT glucose (10/17/2023 12:51 AM DIRECTOR OF INSTITUTIONAL SALES) Glucose, POC 242(H) 70 - 140 mg/dL [facility] Comment: For Glucose values <35 mg/dl when Hematocrit is >60 mg/dl,the test may not accurately detect significant hypoglycemia,and testing in the Laboratory should be considered if clinically indicated. Blood 10/17/2023 12:5 1 AM DIRECTOR OF INSTITUTIONAL SALES 10/17/2023 12:51 AM DIRECTOR OF INSTITUTIONAL SALES Frank Cody MD LAB POCT ORDERABLES - DEVICE Fin al Result Performing Organization Address [facility] Co de Phone Number [facility] [address] Department [employer] [place] [address] * (ABNORMAL) Differential, auto (10/17/2023 12:29 AM DIRECTOR OF INSTITUTIONAL SALES) Neutrophil abs 6.4 1.5 - 6.5 K/cumm [facility] Imm gran abs 0.2(H) 0.0 - 0.1 K/cumm [facility] Lymphocyte abs 1.6 0.8 - 3.3 K/cumm [facility] Monocyte abs 1.1(H) 0.2 - 0.8 K/cumm [facility] Eosinophil abs 0.3 0.0 - 0.5 K/cumm [facility] Basophil abs 0.0 0.0 - 0.1 K/cumm [facility] Neutrophil pct 66.0 % [facility] Comment: Interpretive Data Percent cell count reference ranges are not reported, since discordance with absolute values may lead to misinterpretation of CBC data. Current Interpretive Data was last revised on 2017. Imm gran pct 2.1 % [facility] Comment: Interpretive Data Percent cell count reference ranges are not reported, since discordance with absolute values may lead to misinterpretation of CBC data. Current Interpretive Data was last revised on 2017. Lymphocyte pct 16.8 % [facility] Comment: Interpretive Data Percent cell count reference ranges are not reported, since discordance with absolute values may lead to misinterpretation of CBC data. Current Interpretive Data was last revised on 2017. Monocyte pct 11.6 % [facility] Comment: Interpretive Data Percent cell count reference ranges are not reported, since discordance with absolute values may lead to misinterpretation of CBC data. Current Interpretive Data was last revised on 2017. Eosinophil pct 3.1 % [facility] Comment: Interpretive Data Percent cell count reference ranges are not reported, since discordance with absolute values may lead to misinterpretation of CBC data. Current Interpretive Data was last revised on 2017. Basophil pct 0.4 % [facility] Comment: Interpretive Data Percent cell count reference ranges are not reported, since discordance with absolute values may lead to misinterpretation of CBC data. Current Interpretive Data was last revised on 2017. Blood 10/17/2023 12:2 9 AM DIRECTOR OF INSTITUTIONAL SALES 10/17/2023 12:42 AM DIRECTOR OF INSTITUTIONAL SALES us Vinay Pratt DO LAB BLOOD ORDERABLES F inal Result [facility] [address] Department [place] [address] * (ABNORMAL) aPTT (10/17/2023 12:29 AM DIRECTOR OF INSTITUTIONAL SALES) Pathologist [facility] aPTT 92(H) 28 - 38 sec [facility] Comment: Interpretive Data Heparin therapeutic range: 66.0 - 100.0 seconds. Range based on correlation with therapeutic heparin activity range of 0.3 - 0.7 Units/mL. Current interpretive data was last revised on 2023. Blood 10/17/2023 12:2 9 AM DIRECTOR OF INSTITUTIONAL SALES 10/17/2023 12:43 AM DIRECTOR OF INSTITUTIONAL SALES us Frank Cody MD LAB BLOOD ORDERABLES Final Resul t Performing Organization Address [facility] Co de Phone Number [facility] [address] Department [place] [address] * (ABNORMAL) CBC with auto differential (10/17/2023 12:29 AM DIRECTOR OF INSTITUTIONAL SALES) [facility] WBC 9.7 3.8 - 9.9 K/cumm [facility] Hgb 9.0(L) 13.0 - 17.5 g/dL [facility] Hct 27.4(L) 38.9 - 50.3 % [facility] Plt 289 150 - 400 K/cumm [facility] MPV 10.7 9.1 - 12.3 fL [facility] RBC 3.04(L) 4.30 - 5.80 M/cumm [facility] MCV 90.1 81.3 - 96.4 fL [facility] MCH 29.6 27.1 - 33.3 pg [facility] MCHC 32.8 32.3 - 35.7 g/dL [facility] RDW CV 14.7 11.1 - 14.9 % [facility] RDW SD 46.4 35.7 - 48.1 fL [facility] NRBC abs 0.03(H) 0.00 - 0.01 K/cumm [facility] Blood 10/17/2023 12:2 9 AM DIRECTOR OF INSTITUTIONAL SALES 10/17/2023 12:42 AM DIRECTOR OF INSTITUTIONAL SALES Vinay Pratt DO LAB BLOOD ORDERABLES F inal Result Performing Organization Address [facility] Co de Phone Number [facility] [address] [facility] [employer] [place] [address] * Type and screen (10/16/2023 7:51 PM DIRECTOR OF INSTITUTIONAL SALES) Maribel, indirect Negative ABO Rh A Positive [facility] Blood 10/16/2023 7:51 PM DIRECTOR OF INSTITUTIONAL SALES 10/16/2023 8:09 PM DIRECTOR OF INSTITUTIONAL SALES us Frank Cody MD LAB BLOOD BANK TEST ORDERABLES F inal Result Performing Organization Address [facility] Co de Phone Number [facility] [address] [facility] [employer] [place], [place] [id number] * POCT glucose (10/16/2023 7:49 PM DIRECTOR OF INSTITUTIONAL SALES) Glucose, POC 114 70 - 140 mg/dL [facility] Comment: For Glucose values <35 mg/dl when Hematocrit is >60 mg/dl,the test may not accurately detect significant hypoglycemia,and testing in the Laboratory should be considered if clinically indicated. Blood 10/16/2023 7:49 PM DIRECTOR OF INSTITUTIONAL SALES 10/16/2023 7:49 PM DIRECTOR OF INSTITUTIONAL SALES us Frank Cody MD LAB POCT ORDERABLES - DEVICE Fin al Result Performing Organization Address [facility] Co de Phone Number [facility] [address] [facility] [employer] [place] [address] * POCT glucose (10/16/2023 5:35 PM DIRECTOR OF INSTITUTIONAL SALES) Glucose, POC 76 70 - 140 mg/dL [facility] Comment: For Glucose values <35 mg/dl when Hematocrit is >60 mg/dl,the test may not accurately detect significant hypoglycemia,and testing in the Laboratory should be considered if clinically indicated. Blood 10/16/2023 5:35 PM DIRECTOR OF INSTITUTIONAL SALES 10/16/2023 5:35 PM DIRECTOR OF INSTITUTIONAL SALES us Frank Cody MD LAB POCT ORDERABLES - DEVICE Fin al Result [facility] [address] Department [place] [address] * TRANSTHORACIC ECHO (TTE) COMPLETE W DOPPLER/CF W CONTRAST (10/16/2023 4:47 PM DIRECTOR OF INSTITUTIONAL SALES) Anatomical Region Laterality Modality Ultrasound 10/16/2023 11:3 9 AM DIRECTOR OF INSTITUTIONAL SALES Narrative 10/16/2023 5:02 PM DIRECTOR OF INSTITUTIONAL SALES [facility] [address] [place] [address] ECHOCARDIOGRAM Patient Name: JUVENAL GARVIN C : 1970 Study Date: 10/16/2023 11:39:54 AM Gender: M Tech: Location: [address] Provider: GUERLINE RODRIGUEZ ?Height(Cm): 178 BSA: 2.5 Weight(Kg): 126.1 BP: 125/75 ?Order Provider: GUERLINE RODRIGUEZ - PROCEDURES: Echocardiographic Report: Transthoracic Echocardiogram with 2D, M-Mode, Spectral and Color Flow Doppler examination and administration of intravenous contrast. INDICATIONS: Coronary artery disease, elim ira vessel. Measurements: 2D/M Mode ? Doppler Measurement [...] regurgitation. Electronically Signed By: Dimitrios Ames MD, [facility] 2023-10-16 17:01:58 DIRECTOR OF INSTITUTIONAL SALES Procedure Note Dimitrios Ames MD - 10/16/2023 [facility] [address] [place] [address] ECHOCARDIOGRAM Patient Name: JUVENAL GARVIN C : 1970 Study Date: 10/16/2023 11:39:54 AM Gender: M Tech: Location: [address] Ref Provider: GUERLINE RODRIGUEZ Height(Cm): 178 BSA: 2.5 Weight(Kg): 126.1 BP: 125/75 Order Provider: GUERLINE RODRIGUEZ - PROCEDURES: Echocardiographic Report: Transthoracic Echocardiogram with 2D, M-Mode, Spectral and Color FlowDoppler examination and administration of intravenous contrast. INDICATIONS: Coronary artery disease, elim ira vessel. Measurements: 2D/M ModeDoppler Measurement Value Normal [...] tricuspidregurgitation. Electronically Signed By: Dimitrios Ames MD, [facility] 2023-10-16 17:01:58 DIRECTOR OF INSTITUTIONAL SALES us Guerline GRACE CV ECHO PROCEDURES Final Res ult * (ABNORMAL) aPTT (10/16/2023 3:50 PM DIRECTOR OF INSTITUTIONAL SALES) aPTT 73(H) 28 - 38 sec [facility] Comment: Interpretive Data Heparin therapeutic range: 66.0 - 100.0 seconds. Range based on correlation with therapeutic heparin activity range of 0.3 - 0.7 Units/mL. Current interpretive data was last revised on 2023. Blood 10/16/2023 3:50 PM DIRECTOR OF INSTITUTIONAL SALES 10/16/2023 3:50 PM DIRECTOR OF INSTITUTIONAL SALES us Frank Cody MD LAB BLOOD ORDERABLES Final Resul t [facility] [address] Department [place] [address] * (ABNORMAL) Lipid panel (10/16/2023 3:44 PM DIRECTOR OF INSTITUTIONAL SALES) Cholesterol 89 30 - 199 mg/dL [facility] Comment: Interpretive Data Ages < [...] revised on 2018. Triglycerides 106 <=149 mg/dL [facility] Comment: Interpretive Data Ages < [...] revised on 2018. HDL 34(L) >=40 mg/dL [facility] Comment: Interpretive Data Ages < [...] on 2018. LDL, calculated 34 <=129 mg/dL [facility] Comment: Interpretive Data Ages < [...] revised on 2018. Non-HDL Cholesterol 55 mg/dL [facility] Comment: Interpretive Data Ages < [...] last revised on 2018. Chol/HDL ratio 3 [facility] Blood 10/16/2023 3:44 PM DIRECTOR OF INSTITUTIONAL SALES 10/16/2023 3:53 PM DIRECTOR OF INSTITUTIONAL SALES Jaqueline Valero MD LAB BLOOD ORDERABLES Final Result [facility] [address] Department [place] [address] * (ABNORMAL) Hemoglobin A1c (10/16/2023 3:27 PM DIRECTOR OF INSTITUTIONAL SALES) Hgb A1C 8.1(H) 4.0 - 5.6 % [facility] Estimated Average Glucose 186 mg/dL [facility] Comment: The ADA recommends reporting an estimated Average Glucose (eAG) with all Hemoglobin A1c results using the equation derived from a study of 507 normal and diabetic adults. ??Minority populations were underrepresented and children were not included. ?? (Diabetes Care 31:0848-6170, 2008). ??The eAG is not equivalent to a fasting glucose. Blood 10/16/2023 3:27 PM DIRECTOR OF INSTITUTIONAL SALES 10/16/2023 3:27 PM DIRECTOR OF INSTITUTIONAL SALES Jaqueline Valero MD LAB BLOOD ORDERABLES Final Result [facility] [address] Department [place] [address] * XR Chest PA Lateral 2 View (10/16/2023 3:12 PM DIRECTOR OF INSTITUTIONAL SALES) Anatomical Region Laterality Modality Body, Chest N/A Computed Radiogr aphy 10/16/2023 3:15 PM DIRECTOR OF INSTITUTIONAL SALES Impressions 10/16/2023 3:15 PM DIRECTOR OF INSTITUTIONAL SALES Small bilateral pleural effusions with mild bibasilar atelectasis. Small volume fluid tracks into the right minor fissure. ??Mild pulmonary edema. ??No pneumothorax. ??Heart size and mediastinal contours are unchanged. Electronically signed by: Salina Garnica M.D. Narrative 10/16/2023 3:15 PM DIRECTOR OF INSTITUTIONAL SALES EXAMINATION: XR CHEST PA LATERAL 2 VIEWS [...] * ECG 12 lead (10/16/2023 2:17 PM DIRECTOR OF INSTITUTIONAL SALES) 10/16/2023 2:17 PM DIRECTOR OF INSTITUTIONAL SALES Narrative [facility] - 10/16/2023 9:14 PM DIRECTOR OF INSTITUTIONAL SALES Vent Rate: 61 bpm RR Interval: 981 msec [place] Interval: 235 msec QRS Duration: 150 msec QT Interval: 447 msec QTC Interval: 449 msec P-R-T [place]: 70 - -11 - 134 degrees IMPRESSION: SINUS RHYTHM WITH FIRST DEGREE AV BLOCK LEFT BUNDLE BRANCH BLOCK ABNORMAL ECG Electronically Signed By: Payam White MD us Jaqueline Valero MD ECG ORDERABLES Final Resu lt Performing Organization Address City/[facility]/ZIP Co de Phone Number [facility] * Prepare RBC: 3 Units (10/16/2023 2:04 PM DIRECTOR OF INSTITUTIONAL SALES) Pathologist [facility] Product code [id number] [facility] Unit Number [id number] [facility] Product Blood Type APOS [facility] Dispense Status PRESUMED TRANSFUSED [facility] Product code [id number] Unit Number [id number] * [facility] Product Blood Type APOS [facility] Dispense Status PRESUMED TRANSFUSED [facility] Product code [id number] [facility] Unit Number [id number] M [facility] Product Blood Type APOS [facility] Dispense Status RETURNED [facility] Blood 10/16/2023 2:04 PM DIRECTOR OF INSTITUTIONAL SALES Narrative [facility] - 10/19/2023 7:08 AM DIRECTOR OF INSTITUTIONAL SALES Specify Procedure:->cabg/aortic valve replacement Are special requirements needed? (All products are leukoreduced and CMV- safe)- >No Date required:-[id number] LRRBC # of [id number] Reasons:-Hold for procedure (specify procedure)} us Jaqueline Valero MD BLOOD BANK PRODUCT ORDERAB LES Final Result Performing Organization Address [facility] Co de Phone Number [facility] [address] Department [place] [address] * POCT glucose (10/16/2023 12:22 PM DIRECTOR OF INSTITUTIONAL SALES) Pathologist [facility] Glucose, POC 74 70 - 140 mg/dL [facility] Comment: For Glucose values <35 mg/dl when Hematocrit is >60 mg/dl,the test may not accurately detect significant hypoglycemia,and testing in the Laboratory should be considered if clinically indicated. Blood 10/16/2023 12:2 2 PM DIRECTOR OF INSTITUTIONAL SALES 10/16/2023 12:22 PM DIRECTOR OF INSTITUTIONAL SALES us Frank Cody MD LAB POCT ORDERABLES - DEVICE Fin al Result Performing Organization Address [facility] de Phone Number [facility] [address] [place] [address] * (ABNORMAL) POCT glucose (10/16/2023 8:11 AM DIRECTOR OF INSTITUTIONAL SALES) Glucose, POC 266(H) 70 - 140 mg/dL [facility] Comment: For Glucose values <35 mg/dl when Hematocrit is >60 mg/dl,the test may not accurately detect significant hypoglycemia,and testing in the Laboratory should be considered if clinically indicated. Blood 10/16/2023 8:11 AM DIRECTOR OF INSTITUTIONAL SALES 10/16/2023 8:11 AM DIRECTOR OF INSTITUTIONAL SALES us Frank Cody MD LAB POCT ORDERABLES - DEVICE Fin al Result Performing Organization Address [facility] de Phone Number [facility] [address] [facility] [employer] [place] [address] * (ABNORMAL) POCT glucose (10/16/2023 4:48 AM DIRECTOR OF INSTITUTIONAL SALES) Glucose, POC 329(H) 70 - 140 mg/dL [facility] Comment: For Glucose values <35 mg/dl when Hematocrit is >60 mg/dl,the test may not accurately detect significant hypoglycemia,and testing in the Laboratory should be considered if clinically indicated. Blood 10/16/2023 4:48 AM DIRECTOR OF INSTITUTIONAL SALES 10/16/2023 4:48 AM DIRECTOR OF INSTITUTIONAL SALES us Frank Cody MD LAB POCT ORDERABLES - DEVICE Fin al Result Performing Organization Address [facility] de Phone Number [facility] [address] [facility] [employer] [place] [address] * (ABNORMAL) POCT glucose (10/16/2023 12:37 AM DIRECTOR OF INSTITUTIONAL SALES) Glucose, POC 158(H) 70 - 140 mg/dL [facility] Comment: For Glucose values <35 mg/dl when Hematocrit is >60 mg/dl,the test may not accurately detect significant hypoglycemia,and testing in the Laboratory should be considered if clinically indicated. Blood 10/16/2023 12:3 7 AM DIRECTOR OF INSTITUTIONAL SALES 10/16/2023 12:37 AM DIRECTOR OF INSTITUTIONAL SALES Frank Cody MD LAB POCT ORDERABLES - DEVICE Fin al Result [facility] [address] Department [place] [address] * (ABNORMAL) Differential, auto (10/16/2023 12:31 AM DIRECTOR OF INSTITUTIONAL SALES) Neutrophil abs 4.5 1.5 - 6.5 K/cumm [facility] Imm gran abs 0.2(H) 0.0 - 0.1 K/cumm [facility] Lymphocyte abs 1.8 0.8 - 3.3 K/cumm [facility] Monocyte abs 1.0(H) 0.2 - 0.8 K/cumm [facility] Eosinophil abs 0.2 0.0 - 0.5 K/cumm [facility] Basophil abs 0.0 0.0 - 0.1 K/cumm [facility] Neutrophil pct 58.6 % [facility] Comment: Interpretive Data Percent cell count reference ranges are not reported, since discordance with absolute values may lead to misinterpretation of CBC data. Current Interpretive Data was last revised on 2017. Imm gran pct 2.1 % [facility] Comment: Interpretive Data Percent cell count reference ranges are not reported, since discordance with absolute values may lead to misinterpretation of CBC data. Current Interpretive Data was last revised on 2017. Lymphocyte pct 23.1 % [facility] Comment: Interpretive Data Percent cell count reference ranges are not reported, since discordance with absolute values may lead to misinterpretation of CBC data. Current Interpretive Data was last revised on 2017. Monocyte pct 13.2 % [facility] Comment: Interpretive Data Percent cell count reference ranges are not reported, since discordance with absolute values may lead to misinterpretation of CBC data. Current Interpretive Data was last revised on 2017. Eosinophil pct 2.5 % [facility] Comment: Interpretive Data Percent cell count reference ranges are not reported, since discordance with absolute values may lead to misinterpretation of CBC data. Current Interpretive Data was last revised on 2017. Basophil pct 0.5 % [facility] Comment: Interpretive Data Percent cell count reference ranges are not reported, since discordance with absolute values may lead to misinterpretation of CBC data. Current Interpretive Data was last revised on 2017. Blood 10/16/2023 12:3 1 AM DIRECTOR OF INSTITUTIONAL SALES 10/16/2023 12:36 AM DIRECTOR OF INSTITUTIONAL SALES Vinay Pratt DO LAB BLOOD ORDERABLES F inal Result Performing Organization Address [facility] Co de Phone Number [facility] [address] Department [employer] [place] [address] * (ABNORMAL) aPTT (10/16/2023 12:31 AM DIRECTOR OF INSTITUTIONAL SALES) Pathologist [facility] aPTT 80(H) 28 - 38 sec [facility] Comment: Interpretive Data Heparin therapeutic range: 66.0 - 100.0 seconds. Range based on correlation with therapeutic heparin activity range of 0.3 - 0.7 Units/mL. Current interpretive data was last revised on 2023. Blood 10/16/2023 12:3 1 AM DIRECTOR OF INSTITUTIONAL SALES 10/16/2023 12:36 AM DIRECTOR OF INSTITUTIONAL SALES Frank Cody MD LAB BLOOD ORDERABLES Final Resul t Performing Organization Address [facility] Co de Phone Number [facility] [address] Department [employer] [place], [place] [phone] * (ABNORMAL) CBC with auto differential (10/16/2023 12:31 AM DIRECTOR OF INSTITUTIONAL SALES) WBC 7.7 3.8 - 9.9 K/cumm [facility] Hgb 9.4(L) 13.0 - 17.5 g/dL [facility] Hct 29.7(L) 38.9 - 50.3 % [facility] Plt 330 150 - 400 K/cumm [facility] MPV 10.9 9.1 - 12.3 fL [facility] RBC 3.24(L) 4.30 - 5.80 M/cumm [facility] MCV 91.7 81.3 - 96.4 fL [facility] MCH 29.0 27.1 - 33.3 pg [facility] MCHC 31.6(L) 32.3 - 35.7 g/dL [facility] RDW CV 14.6 11.1 - 14.9 % [facility] RDW SD 47.2 35.7 - 48.1 fL [facility] NRBC abs 0.03(H) 0.00 - 0.01 K/cumm [facility] Blood 10/16/2023 12:3 1 AM DIRECTOR OF INSTITUTIONAL SALES 10/16/2023 12:36 AM DIRECTOR OF INSTITUTIONAL SALES Vinay Pratt DO LAB BLOOD ORDERABLES F inal Result Performing Organization Address [facility] Co de Phone Number [facility] [address] Department [employer] [place], [place] [phone] * Check Sample (10/16/2023 12:27 AM DIRECTOR OF INSTITUTIONAL SALES) Pathologist [facility] ABO Rh A Positive [facility] OTHER 10/16/2023 12:2 7 AM DIRECTOR OF INSTITUTIONAL SALES 10/16/2023 2:18 PM DIRECTOR OF INSTITUTIONAL SALES Frank Cody MD LAB BLOOD ORDERABLES Final Resul t Performing Organization Address [facility] de Phone Number [facility] [address] Department [employer] [place] [address] * POCT glucose (10/15/2023 11:20 PM DIRECTOR OF INSTITUTIONAL SALES) Glucose, POC 105 70 - 140 mg/dL [facility] Comment: For Glucose values <35 mg/dl when Hematocrit is >60 mg/dl,the test may not accurately detect significant hypoglycemia,and testing in the Laboratory should be considered if clinically indicated. Blood 10/15/2023 11:2 0 PM DIRECTOR OF INSTITUTIONAL SALES 10/15/2023 11:20 PM DIRECTOR OF INSTITUTIONAL SALES Frank Cody MD LAB POCT ORDERABLES - DEVICE Fin al Result Performing Organization Address [facility] de Phone Number [facility] [address] Department [employer] [place], [place] [phone] * POCT glucose (10/15/2023 11:01 PM DIRECTOR OF INSTITUTIONAL SALES) Glucose, POC 93 70 - 140 mg/dL [facility] Comment: For Glucose values <35 mg/dl when Hematocrit is >60 mg/dl,the test may not accurately detect significant hypoglycemia,and testing in the Laboratory should be considered if clinically indicated. Glucose comment 1 Follow Protocol [facility] Blood 10/15/2023 11:0 1 PM DIRECTOR OF INSTITUTIONAL SALES 10/15/2023 11:01 PM DIRECTOR OF INSTITUTIONAL SALES Frank Cody MD LAB POCT ORDERABLES - DEVICE Fin al Result Performing Organization Address [facility] de Phone Number [facility] [address] [facility] [employer] [place] [address] * POCT glucose (10/15/2023 10:45 PM DIRECTOR OF INSTITUTIONAL SALES) Glucose, POC 84 70 - 140 mg/dL [facility] Comment: For Glucose values <35 mg/dl when Hematocrit is >60 mg/dl,the test may not accurately detect significant hypoglycemia,and testing in the Laboratory should be considered if clinically indicated. Glucose comment 1 Follow Protocol [facility] Blood 10/15/2023 10:4 5 PM DIRECTOR OF INSTITUTIONAL SALES 10/15/2023 10:45 PM [employer]OR OF INSTITUTIONAL SALES Frank Cody MD LAB POCT ORDERABLES - DEVICE Fin al Result Performing Organization Address [facility] de Phone Number [facility] [address] Department [employer] [place], [place] [phone] * (ABNORMAL) POCT glucose (10/15/2023 10:26 PM DIRECTOR OF INSTITUTIONAL SALES) Glucose, POC 69(L) 70 - 140 mg/dL [facility] Comment: For Glucose values <35 mg/dl when Hematocrit is >60 mg/dl,the test may not accurately detect significant hypoglycemia,and testing in the Laboratory should be considered if clinically indicated. Blood 10/15/2023 10:2 6 PM DIRECTOR OF INSTITUTIONAL SALES 10/15/2023 10:26 PM DIRECTOR OF INSTITUTIONAL SALES us Frank Cody MD LAB POCT ORDERABLES - DEVICE Fin al Result Performing Organization Address [facility] de Phone Number [facility] [address] Department [place] [address] * POCT glucose (10/15/2023 8:12 PM DIRECTOR OF INSTITUTIONAL SALES) Glucose, POC 73 70 - 140 mg/dL [facility] Comment: For Glucose values <35 mg/dl when Hematocrit is >60 mg/dl,the test may not accurately detect significant hypoglycemia,and testing in the Laboratory should be considered if clinically indicated. Blood 10/15/2023 8:12 PM DIRECTOR OF INSTITUTIONAL SALES 10/15/2023 8:12 PM DIRECTOR OF INSTITUTIONAL SALES Result [facility] us Frank Cody MD LAB POCT ORDERABLES - DEVICE Fin al Result Performing Organization Address [facility] de Phone Number [facility] [address] Department [place] [address] * POCT glucose (10/15/2023 5:10 PM DIRECTOR OF INSTITUTIONAL SALES) Glucose, POC 72 70 - 140 mg/dL [facility] Comment: For Glucose values <35 mg/dl when Hematocrit is >60 mg/dl,the test may not accurately detect significant hypoglycemia,and testing in the Laboratory should be considered if clinically indicated. Blood 10/15/2023 5:10 PM DIRECTOR OF INSTITUTIONAL SALES 10/15/2023 5:10 PM DIRECTOR OF INSTITUTIONAL SALES us Frank Cody MD LAB POCT ORDERABLES - DEVICE Fin al Result Performing Organization Address [facility] Co de Phone Number [facility] [address] [facility] [employer] [place] [address] * (ABNORMAL) POCT glucose (10/15/2023 12:13 PM DIRECTOR OF INSTITUTIONAL SALES) Glucose, POC 155(H) 70 - 140 mg/dL [facility] Comment: For Glucose values <35 mg/dl when Hematocrit is >60 mg/dl,the test may not accurately detect significant hypoglycemia,and testing in the Laboratory should be considered if clinically indicated. Blood 10/15/2023 12:1 3 PM DIRECTOR OF INSTITUTIONAL SALES 10/15/2023 12:13 PM DIRECTOR OF INSTITUTIONAL SALES us Frank Cody MD LAB POCT ORDERABLES - DEVICE Fin al Result Performing Organization Address [facility] Co de Phone Number [facility] [address] [facility] [employer] [place] [address] * (ABNORMAL) aPTT (10/15/2023 11:25 AM DIRECTOR OF INSTITUTIONAL SALES) aPTT 59(H) 28 - 38 sec [facility] Comment: Interpretive Data Heparin therapeutic range: 66.0 - 100.0 seconds. Range based on correlation with therapeutic heparin activity range of 0.3 - 0.7 Units/mL. Current interpretive data was last revised on 2023. Blood 10/15/2023 11:2 5 AM DIRECTOR OF INSTITUTIONAL SALES 10/15/2023 11:31 AM DIRECTOR OF INSTITUTIONAL SALES us Frank Cody MD LAB BLOOD ORDERABLES Final Resul t Performing Organization Address [facility]/ZIP Co de Phone Number [facility] [address] [facility] [employer] [place] [address] * CT Chest WO Contrast (10/15/2023 11:00 AM DIRECTOR OF INSTITUTIONAL SALES) Anatomical Region Laterality Modality Body N/A Computed Tomogra phy 10/15/2023 11:5 8 AM DIRECTOR OF INSTITUTIONAL SALES Impressions 10/15/2023 11:58 AM DIRECTOR OF INSTITUTIONAL SALES 1. ??Small bilateral pleural effusions with mild bibasilar atelectasis. 2. ??Mildly enlarged likely reactive mediastinal lymph nodes. Attention on follow-up is recommended. Electronically signed by: Arjun Amador M.D. Narrative 10/15/2023 11:58 AM DIRECTOR OF INSTITUTIONAL SALES EXAMINATION: ??Computed tomography of the chest without [...] * (ABNORMAL) POCT glucose (10/15/2023 7:56 AM DIRECTOR OF INSTITUTIONAL SALES) Glucose, POC 249(H) 70 - 140 mg/dL [facility] Comment: For Glucose values <35 mg/dl when Hematocrit is >60 mg/dl,the test may not accurately detect significant hypoglycemia,and testing in the Laboratory should be considered if clinically indicated. Blood 10/15/2023 7:56 AM DIRECTOR OF INSTITUTIONAL SALES 10/15/2023 7:56 AM DIRECTOR OF INSTITUTIONAL SALES Frank Cody MD LAB POCT ORDERABLES - DEVICE Fin al Result Performing Organization Address [facility] Co de Phone Number [facility] [address] [place] [address] * (ABNORMAL) POCT glucose (10/15/2023 5:34 AM DIRECTOR OF INSTITUTIONAL SALES) [facility] Signature Glucose, POC 338(H) 70 - 140 mg/dL [facility] Comment: For Glucose values <35 mg/dl when Hematocrit is >60 mg/dl,the test may not accurately detect significant hypoglycemia,and testing in the Laboratory should be considered if clinically indicated. Glucose comment 1 RN/MD Notified [facility] Blood 10/15/2023 5:34 AM DIRECTOR OF INSTITUTIONAL SALES 10/15/2023 5:34 AM DIRECTOR OF INSTITUTIONAL SALES Result [facility] Frank Cody MD LAB POCT ORDERABLES - DEVICE Fin al Result Performing Organization Address [facility] Co de Phone Number [facility] [address] [place] [address] * (ABNORMAL) POCT glucose (10/15/2023 4:35 AM DIRECTOR OF INSTITUTIONAL SALES) Glucose, POC 344(H) 70 - 140 mg/dL [facility] Comment: For Glucose values <35 mg/dl when Hematocrit is >60 mg/dl,the test may not accurately detect significant hypoglycemia,and testing in the Laboratory should be considered if clinically indicated. Glucose comment 1 RN/MD Notified [facility] Blood 10/15/2023 4:35 AM DIRECTOR OF INSTITUTIONAL SALES 10/15/2023 4:35 AM DIRECTOR OF INSTITUTIONAL SALES Frank Cody MD LAB POCT ORDERABLES - DEVICE Fin al Result Performing Organization Address [facility]/ZIP Co de Phone Number [facility] [address] Department [employer] [place] [address] * (ABNORMAL) aPTT (10/15/2023 4:27 AM DIRECTOR OF INSTITUTIONAL SALES) aPTT 75(H) 28 - 38 sec [facility] Comment: Interpretive Data Heparin therapeutic range: 66.0 - 100.0 seconds. Range based on correlation with therapeutic heparin activity range of 0.3 - 0.7 Units/mL. Current interpretive data was last revised on 2023. Blood 10/15/2023 4:27 AM DIRECTOR OF INSTITUTIONAL SALES 10/15/2023 4:38 AM DIRECTOR OF INSTITUTIONAL SALES Narrative [facility] - 10/15/2023 4:55 AM DIRECTOR OF INSTITUTIONAL SALES Draw STAT PTT 6 hrs after initiation of heparin infusion, draw STAT PTT 6 hours after each dose change, and every 6 hours until 2 consecutive PTTs are within therapeutic range. Once two consecutive PTT's are therapeutic (66-100 seconds), then draw PTT every AM until heparin is discontinued. Vinay Pratt DO LAB BLOOD ORDERABLES F inal Result Performing Organization Address [facility]/ZIP Co de Phone Number [facility] [address] Department [employer] [place] [address] * (ABNORMAL) POCT glucose (10/15/2023 1:30 AM DIRECTOR OF INSTITUTIONAL SALES) Glucose, POC 334(H) 70 - 140 mg/dL [facility] Comment: For Glucose values <35 mg/dl when Hematocrit is >60 mg/dl,the test may not accurately detect significant hypoglycemia,and testing in the Laboratory should be considered if clinically indicated. Blood 10/15/2023 1:30 AM DIRECTOR OF INSTITUTIONAL SALES 10/15/2023 1:30 AM DIRECTOR OF INSTITUTIONAL SALES us Frank Cody MD LAB POCT ORDERABLES - DEVICE Fin al Result [facility] [address] Department [place] [address] * (ABNORMAL) Renal function panel (10/15/2023 1:06 AM DIRECTOR OF INSTITUTIONAL SALES) Sodium 130(L) 135 - 145 mmol/L [facility] Potassium, pl 4.3 3.3 - 4.9 mmol/L [facility] Chloride 89(L) 97 - 110 mmol/L [facility] CO2 22 22 - 32 mmol/L [facility] Anion gap 19(H) 2 - 15 mmol/L [facility] BUN 78(H) 6 - 25 mg/dL [facility] Creatinine 10.57(H) 0.80 - 1.30 mg/dL [facility] Glucose 308(H) 70 - 199 mg/dL [facility] Comment: Interpretive Data Fasting glucose [...] 2022. Calcium 8.2(L) 8.5 - 10.3 mg/dL [facility] Phosphorus, pl 5.7(H) 2.3 - 4.5 mg/dL [facility] Albumin 3.3(L) 3.5 - 5.0 g/dL [facility] Blood 10/15/2023 1:06 AM DIRECTOR OF INSTITUTIONAL SALES 10/15/2023 1:20 AM DIRECTOR OF INSTITUTIONAL SALES Frank Cody MD LAB BLOOD ORDERABLES Final Resul t Performing Organization Address [facility] Co de Phone Number [facility] [address] Department [employer] [place] [address] * eGFR (10/15/2023 1:06 AM DIRECTOR OF INSTITUTIONAL SALES) eGFR 5 mL/min/1. 73 m2 [facility] Comment: Interpretive Data Reference Interval [...] last reviewed 2021. Blood 10/15/2023 1:06 AM DIRECTOR OF INSTITUTIONAL SALES 10/15/2023 1:20 AM DIRECTOR OF INSTITUTIONAL SALES Frank Cody MD LAB BLOOD ORDERABLES Final Resul t Performing Organization Address [facility]/ZIP Co de Phone Number [facility] [address] Department [employer] [place], [place] [phone] * (ABNORMAL) aPTT (10/15/2023 1:06 AM DIRECTOR OF INSTITUTIONAL SALES) Pathologist [facility] aPTT 69(H) 28 - 38 sec [facility] Comment: Interpretive Data Heparin therapeutic range: 66.0 - 100.0 seconds. Range based on correlation with therapeutic heparin activity range of 0.3 - 0.7 Units/mL. Current interpretive data was last revised on 2023. Blood 10/15/2023 1:06 AM DIRECTOR OF INSTITUTIONAL SALES 10/15/2023 1:20 AM DIRECTOR OF INSTITUTIONAL SALES us Frank Cody MD LAB BLOOD ORDERABLES Final Resul t [facility] [address] Department [place] [address] * (ABNORMAL) Differential, auto (10/15/2023 1:06 AM DIRECTOR OF INSTITUTIONAL SALES) Pathologist [facility] Neutrophil abs 4.3 1.5 - 6.5 K/cumm [facility] Imm gran abs 0.1 0.0 - 0.1 K/cumm [facility] Lymphocyte abs 2.2 0.8 - 3.3 K/cumm [facility] Monocyte abs 0.9(H) 0.2 - 0.8 K/cumm [facility] Eosinophil abs 0.1 0.0 - 0.5 K/cumm [facility] Basophil abs 0.0 0.0 - 0.1 K/cumm [facility] Neutrophil pct 56.6 % [facility] Comment: Interpretive Data Percent cell count reference ranges are not reported, since discordance with absolute values may lead to misinterpretation of CBC data. Current Interpretive Data was last revised on 2017. Imm gran pct 1.2 % [facility] Comment: Interpretive Data Percent cell count reference ranges are not reported, since discordance with absolute values may lead to misinterpretation of CBC data. Current Interpretive Data was last revised on 2017. Lymphocyte pct 28.4 % [facility] Comment: Interpretive Data Percent cell count reference ranges are not reported, since discordance with absolute values may lead to misinterpretation of CBC data. Current Interpretive Data was last revised on 2017. Monocyte pct 12.0 % [facility] Comment: Interpretive Data Percent cell count reference ranges are not reported, since discordance with absolute values may lead to misinterpretation of CBC data. Current Interpretive Data was last revised on 2017. Eosinophil pct 1.5 % [facility] Comment: Interpretive Data Percent cell count reference ranges are not reported, since discordance with absolute values may lead to misinterpretation of CBC data. Current Interpretive Data was last revised on 2017. Basophil pct 0.3 % [facility] Comment: Interpretive Data Percent cell count reference ranges are not reported, since discordance with absolute values may lead to misinterpretation of CBC data. Current Interpretive Data was last revised on 2017. Blood 10/15/2023 1:06 AM DIRECTOR OF INSTITUTIONAL SALES 10/15/2023 1:20 AM DIRECTOR OF INSTITUTIONAL SALES us Vinay Pratt DO LAB BLOOD ORDERABLES F inal Result Performing Organization Address [facility]/ZIP Co de Phone Number [facility] [address] Department [employer] [place] [address] * (ABNORMAL) Iron profile w/ IBC (10/15/2023 1:06 AM DIRECTOR OF INSTITUTIONAL SALES) Iron 72 50 - 150 mcg/dL [facility] TIBC 205(L) 250 - 400 mcg/dL [facility] Transferrin saturation 35 20 - 50 % [facility] Blood 10/15/2023 1:06 AM DIRECTOR OF INSTITUTIONAL SALES 10/15/2023 1:20 AM DIRECTOR OF INSTITUTIONAL SALES us Fernandez Carranza MD LAB BLOOD ORDERABLES Final Resu lt [facility] [address] Department [employer] [place] [address] * (ABNORMAL) Ferritin (10/15/2023 1:06 AM DIRECTOR OF INSTITUTIONAL SALES) Ferritin 1,322(H) 30 - 400 ng/mL [facility] Blood 10/15/2023 1:06 AM DIRECTOR OF INSTITUTIONAL SALES 10/15/2023 1:20 AM DIRECTOR OF INSTITUTIONAL SALES us Fernandez Carranza MD LAB BLOOD ORDERABLES Final Resu lt Performing Organization Address [facility] Co de Phone Number [facility] [address] Department [employer] [place], [place] [phone] * (ABNORMAL) CBC with auto differential (10/15/2023 1:06 AM DIRECTOR OF INSTITUTIONAL SALES) [facility] WBC 7.6 3.8 - 9.9 K/cumm [facility] Hgb 9.4(L) 13.0 - 17.5 g/dL [facility] Hct 29.4(L) 38.9 - 50.3 % [facility] Plt 375 150 - 400 K/cumm [facility] MPV 11.0 9.1 - 12.3 fL [facility] RBC 3.23(L) 4.30 - 5.80 M/cumm [facility] MCV 91.0 81.3 - 96.4 fL [facility] MCH 29.1 27.1 - 33.3 pg [facility] MCHC 32.0(L) 32.3 - 35.7 g/dL [facility] RDW CV 14.0 11.1 - 14.9 % [facility] RDW SD 45.5 35.7 - 48.1 fL [facility] NRBC abs 0.02(H) 0.00 - 0.01 K/cumm [facility] Blood 10/15/2023 1:06 AM DIRECTOR OF INSTITUTIONAL SALES 10/15/2023 1:20 AM DIRECTOR OF INSTITUTIONAL SALES us Vinay Pratt DO LAB BLOOD ORDERABLES F inal Result Performing Organization Address [facility]/ZIP Co de Phone Number [facility] [address] Department [employer] [place], [place] [phone] * (ABNORMAL) aPTT (10/14/2023 8:41 PM DIRECTOR OF INSTITUTIONAL SALES) aPTT 75(H) 28 - 38 sec [facility] Comment: Interpretive Data Heparin therapeutic range: 66.0 - 100.0 seconds. Range based on correlation with therapeutic heparin activity range of 0.3 - 0.7 Units/mL. Current interpretive data was last revised on 2023. Blood 10/14/2023 8:41 PM DIRECTOR OF INSTITUTIONAL SALES 10/14/2023 8:52 PM DIRECTOR OF INSTITUTIONAL SALES us Frank Cody MD LAB BLOOD ORDERABLES Final Resul t Performing Organization Address [facility] de Phone Number [facility] [address] [facility] [employer] [place] [address] * (ABNORMAL) POCT glucose (10/14/2023 8:24 PM DIRECTOR OF INSTITUTIONAL SALES) Glucose, POC 232(H) 70 - 140 mg/dL [facility] Comment: For Glucose values <35 mg/dl when Hematocrit is >60 mg/dl,the test may not accurately detect significant hypoglycemia,and testing in the Laboratory should be considered if clinically indicated. Blood 10/14/2023 8:24 PM DIRECTOR OF INSTITUTIONAL SALES 10/14/2023 8:24 PM DIRECTOR OF INSTITUTIONAL SALES Result Todd Cody MD LAB POCT ORDERABLES - DEVICE Fin al Result Performing Organization Address [facility] de Phone Number [facility] [address] [facility] [employer] [place] [address] * (ABNORMAL) POCT glucose (10/14/2023 5:28 PM DIRECTOR OF INSTITUTIONAL SALES) Glucose, POC 217(H) 70 - 140 mg/dL [facility] Comment: For Glucose values <35 mg/dl when Hematocrit is >60 mg/dl,the test may not accurately detect significant hypoglycemia,and testing in the Laboratory should be considered if clinically indicated. Blood 10/14/2023 5:28 PM DIRECTOR OF INSTITUTIONAL SALES 10/14/2023 5:28 PM DIRECTOR OF INSTITUTIONAL SALES us Frank Cody MD LAB POCT ORDERABLES - DEVICE Fin al Result Performing Organization Address [facility] Co de Phone Number [facility] [address] [facility] [employer] [place], [place] [id number] * (ABNORMAL) aPTT (10/14/2023 2:39 PM DIRECTOR OF INSTITUTIONAL SALES) aPTT 43(H) 28 - 38 sec [facility] Comment: Interpretive Data Heparin therapeutic range: 66.0 - 100.0 seconds. Range based on correlation with therapeutic heparin activity range of 0.3 - 0.7 Units/mL. Current interpretive data was last revised on 2023. Blood 10/14/2023 2:39 PM DIRECTOR OF INSTITUTIONAL SALES 10/14/2023 2:39 PM DIRECTOR OF INSTITUTIONAL SALES us Abelardo Randle MD LAB BLOOD ORDERABLES Final Result Performing Organization Address [facility] Co de Phone Number [facility] [address] [facility] [place] [address] * POCT glucose (10/14/2023 12:15 PM DIRECTOR OF INSTITUTIONAL SALES) Glucose, POC 140 70 - 140 mg/dL [facility] Comment: For Glucose values <35 mg/dl when Hematocrit is >60 mg/dl,the test may not accurately detect significant hypoglycemia,and testing in the Laboratory should be considered if clinically indicated. Blood 10/14/2023 12:1 5 PM DIRECTOR OF INSTITUTIONAL SALES 10/14/2023 12:15 PM DIRECTOR OF INSTITUTIONAL SALES Frank Cody MD LAB POCT ORDERABLES - DEVICE Fin al Result Performing Organization Address [facility] Co de Phone Number [facility] [address] [facility] [employer] [place], [place] [phone] * POCT glucose (10/14/2023 11:06 AM DIRECTOR OF INSTITUTIONAL SALES) Glucose, POC 138 70 - 140 mg/dL [facility] Comment: For Glucose values <35 mg/dl when Hematocrit is >60 mg/dl,the test may not accurately detect significant hypoglycemia,and testing in the Laboratory should be considered if clinically indicated. Blood 10/14/2023 11:0 6 AM DIRECTOR OF INSTITUTIONAL SALES 10/14/2023 11:06 AM DIRECTOR OF INSTITUTIONAL SALES us Frank Cody MD LAB POCT ORDERABLES - DEVICE Fin al Result Performing Organization Address [facility] de Phone Number [facility] [address] [facility] [employer] [place] [address] * POCT glucose (10/14/2023 8:34 AM DIRECTOR OF INSTITUTIONAL SALES) Glucose, POC 134 70 - 140 mg/dL [facility] Comment: For Glucose values <35 mg/dl when Hematocrit is >60 mg/dl,the test may not accurately detect significant hypoglycemia,and testing in the Laboratory should be considered if clinically indicated. Blood 10/14/2023 8:34 AM DIRECTOR OF INSTITUTIONAL SALES 10/14/2023 8:34 AM DIRECTOR OF INSTITUTIONAL SALES us Frank Cody MD LAB POCT ORDERABLES - DEVICE Fin al Result Performing Organization Address [facility] de Phone Number [facility] [address] [place] [place] [address] * (ABNORMAL) POCT glucose (10/14/2023 5:56 AM DIRECTOR OF INSTITUTIONAL SALES) Glucose, POC 259(H) 70 - 140 mg/dL [facility] Comment: For Glucose values <35 mg/dl when Hematocrit is >60 mg/dl,the test may not accurately detect significant hypoglycemia,and testing in the Laboratory should be considered if clinically indicated. Blood 10/14/2023 5:56 AM DIRECTOR OF INSTITUTIONAL SALES 10/14/2023 5:56 AM DIRECTOR OF INSTITUTIONAL SALES us Frank Cody MD LAB POCT ORDERABLES - DEVICE Fin al Result Performing Organization Address [facility] Co de Phone Number [facility] [address] [place] [address] * eGFR (10/14/2023 5:53 AM DIRECTOR OF INSTITUTIONAL SALES) eGFR 5 mL/min/1. 73 m2 [facility] Comment: Interpretive Data Reference Interval [...] last reviewed 2021. Blood 10/14/2023 5:53 AM DIRECTOR OF INSTITUTIONAL SALES 10/14/2023 6:04 AM DIRECTOR OF INSTITUTIONAL SALES us Vinay Pratt DO LAB BLOOD ORDERABLES F inal Result [facility] [address] Department [place] [address] * (ABNORMAL) aPTT (10/14/2023 5:53 AM DIRECTOR OF INSTITUTIONAL SALES) aPTT 56(H) 28 - 38 sec [facility] Comment: Interpretive Data Heparin therapeutic range: 66.0 - 100.0 seconds. Range based on correlation with therapeutic heparin activity range of 0.3 - 0.7 Units/mL. Current interpretive data was last revised on 2023. Blood 10/14/2023 5:53 AM DIRECTOR OF INSTITUTIONAL SALES 10/14/2023 6:04 AM DIRECTOR OF INSTITUTIONAL SALES Vinay Pratt DO LAB BLOOD ORDERABLES F inal Result Performing Organization Address [facility]/ZIP Co de Phone Number [facility] [address] Department [place] [address] * (ABNORMAL) Basic metabolic panel (10/14/2023 5:53 AM DIRECTOR OF INSTITUTIONAL SALES) [facility] Sodium 131(L) 135 - 145 mmol/L [facility] Potassium, pl 4.3 3.3 - 4.9 mmol/L [facility] Chloride 92(L) 97 - 110 mmol/L [facility] CO2 23 22 - 32 mmol/L [facility] Anion gap 16(H) 2 - 15 mmol/L [facility] BUN 75(H) 6 - 25 mg/dL [facility] Creatinine 10.22(H) 0.80 - 1.30 mg/dL [facility] Glucose 287(H) 70 - 199 mg/dL [facility] Comment: Interpretive Data Fasting glucose [...] 2022. Calcium 9.0 8.5 - 10.3 mg/dL [facility] Blood 10/14/2023 5:53 AM DIRECTOR OF INSTITUTIONAL SALES 10/14/2023 6:04 AM DIRECTOR OF INSTITUTIONAL SALES Vinay Pratt DO LAB BLOOD ORDERABLES F inal Result Performing Organization Address City/[facility]/ZIP Co de Phone Number [facility] [address] [facility] [employer] [place] [address] * (ABNORMAL) POCT glucose (10/14/2023 3:58 AM DIRECTOR OF INSTITUTIONAL SALES) Glucose, POC 382(H) 70 - 140 mg/dL [facility] Comment: For Glucose values <35 mg/dl when Hematocrit is >60 mg/dl,the test may not accurately detect significant hypoglycemia,and testing in the Laboratory should be considered if clinically indicated. Blood 10/14/2023 3:58 AM DIRECTOR OF INSTITUTIONAL SALES 10/14/2023 3:58 AM DIRECTOR OF INSTITUTIONAL SALES us Frank Cody MD LAB POCT ORDERABLES - DEVICE Fin al Result Performing Organization Address [facility] Co de Phone Number [facility] [address] [facility] [employer] [place] [address] * (ABNORMAL) POCT glucose (10/14/2023 3:04 AM DIRECTOR OF INSTITUTIONAL SALES) Glucose, POC 378(H) 70 - 140 mg/dL [facility] Comment: For Glucose values <35 mg/dl when Hematocrit is >60 mg/dl,the test may not accurately detect significant hypoglycemia,and testing in the Laboratory should be considered if clinically indicated. Blood 10/14/2023 3:04 AM DIRECTOR OF INSTITUTIONAL SALES 10/14/2023 3:04 AM DIRECTOR OF INSTITUTIONAL SALES us Frank Cody MD LAB POCT ORDERABLES - DEVICE Fin al Result Performing Organization Address [facility] Co de Phone Number [facility] [address] [facility] [employer] [place] [address] * (ABNORMAL) POCT glucose (10/14/2023 2:05 AM DIRECTOR OF INSTITUTIONAL SALES) Glucose, POC 425(H) 70 - 140 mg/dL [facility] Comment: For Glucose values <35 mg/dl when Hematocrit is >60 mg/dl,the test may not accurately detect significant hypoglycemia,and testing in the Laboratory should be considered if clinically indicated. Blood 10/14/2023 2:05 AM DIRECTOR OF INSTITUTIONAL SALES 10/14/2023 2:05 AM DIRECTOR OF INSTITUTIONAL SALES Frank Cody MD LAB POCT ORDERABLES - DEVICE Fin al Result Performing Organization Address [facility] Co de Phone Number [facility] [address] Department [place] [address] * eGFR (10/14/2023 1:04 AM DIRECTOR OF INSTITUTIONAL SALES) Pathologist [facility] eGFR 5 mL/min/1. 73 m2 [facility] Comment: Interpretive Data Reference Interval [...] last reviewed 2021. Blood 10/14/2023 1:04 AM DIRECTOR OF INSTITUTIONAL SALES 10/14/2023 1:36 AM DIRECTOR OF INSTITUTIONAL SALES Vinay Pratt DO LAB BLOOD ORDERABLES F inal Result Performing Organization Address [facility]/State/ZIP Co de Phone Number [facility] [address] Department [place] [address] * (ABNORMAL) Differential, auto (10/14/2023 1:04 AM DIRECTOR OF INSTITUTIONAL SALES) Neutrophil abs 4.8 1.5 - 6.5 K/cumm [facility] Imm gran abs 0.1 0.0 - 0.1 K/cumm [facility] Lymphocyte abs 0.7(L) 0.8 - 3.3 K/cumm [facility] Monocyte abs 0.7 0.2 - 0.8 K/cumm [facility] Eosinophil abs 0.0 0.0 - 0.5 K/cumm [facility] Basophil abs 0.0 0.0 - 0.1 K/cumm [facility] Neutrophil pct 77.4 % [facility] Comment: Interpretive Data Percent cell count reference ranges are not reported, since discordance with absolute values may lead to misinterpretation of CBC data. Current Interpretive Data was last revised on 2017. Imm gran pct 1.0 % [facility] Comment: Interpretive Data Percent cell count reference ranges are not reported, since discordance with absolute values may lead to misinterpretation of CBC data. Current Interpretive Data was last revised on 2017. Lymphocyte pct 10.4 % [facility] Comment: Interpretive Data Percent cell count reference ranges are not reported, since discordance with absolute values may lead to misinterpretation of CBC data. Current Interpretive Data was last revised on 2017. Monocyte pct 11.2 % [facility] Comment: Interpretive Data Percent cell count reference ranges are not reported, since discordance with absolute values may lead to misinterpretation of CBC data. Current Interpretive Data was last revised on 2017. Eosinophil pct 0.0 % [facility] Comment: Interpretive Data Percent cell count reference ranges are not reported, since discordance with absolute values may lead to misinterpretation of CBC data. Current Interpretive Data was last revised on 2017. Basophil pct 0.0 % [facility] Comment: Interpretive Data Percent cell count reference ranges are not reported, since discordance with absolute values may lead to misinterpretation of CBC data. Current Interpretive Data was last revised on 2017. Blood 10/14/2023 1:04 AM DIRECTOR OF INSTITUTIONAL SALES 10/14/2023 1:36 AM DIRECTOR OF INSTITUTIONAL SALES Vinay Pratt [facility] BLOOD ORDERABLES F inal Result Performing Organization Address [facility] de Phone Number [facility] [address] [facility] [employer] [place] [address] * (ABNORMAL) aPTT (10/14/2023 1:04 AM DIRECTOR OF INSTITUTIONAL SALES) aPTT 68(H) 28 - 38 sec [facility] Comment: Interpretive Data Heparin therapeutic range: 66.0 - 100.0 seconds. Range based on correlation with therapeutic heparin activity range of 0.3 - 0.7 Units/mL. Current interpretive data was last revised on 2023. Blood 10/14/2023 1:04 AM DIRECTOR OF INSTITUTIONAL SALES 10/14/2023 1:36 AM DIRECTOR OF INSTITUTIONAL SALES Narrative [facility] - 10/14/2023 1:49 AM DIRECTOR OF INSTITUTIONAL SALES Baseline prior to heparin initiation Vinay Pratt [facility] BLOOD ORDERABLES F inal Result Performing Organization Address [facility] de Phone Number [facility] [address] [place] [place] [address] * Protime-INR (10/14/2023 1:04 AM DIRECTOR OF INSTITUTIONAL SALES) PT 13.5 10.3 - 13.7 sec [facility] INR 1.18 0.90 - 1.20 [facility] Comment: Interpretive data Oral anticoagulant therapeutic ranges: Venous thromboembolism prophylaxis or treatment: 2.0-3.0 CARDIOLOGY Standard range: 2.0-3.0 High-intensity range: 2.5-3.5 Refer to indication-specific guidelines for appropriate target ranges for prosthetic heart valve replacement. Current interpretive data was last revised on 2019. Blood 10/14/2023 1:04 AM DIRECTOR OF INSTITUTIONAL SALES 10/14/2023 1:36 AM DIRECTOR OF INSTITUTIONAL SALES Narrative [facility] - 10/14/2023 1:49 AM DIRECTOR OF INSTITUTIONAL SALES Baseline prior to heparin initiation Vinay Pratt DO LAB BLOOD ORDERABLES F inal Result Performing Organization Address City/[facility]/ZIP Co de Phone Number [facility] [address] [employer] [place] [address] * (ABNORMAL) CBC with auto differential (10/14/2023 1:04 AM DIRECTOR OF INSTITUTIONAL SALES) Pathologist [facility] WBC 6.2 3.8 - 9.9 K/cumm [facility] Hgb 9.4(L) 13.0 - 17.5 g/dL [facility] Hct 29.0(L) 38.9 - 50.3 % [facility] Plt 357 150 - 400 K/cumm [facility] MPV 11.0 9.1 - 12.3 fL [facility] RBC 3.21(L) 4.30 - 5.80 M/cumm [facility] MCV 90.3 81.3 - 96.4 fL [facility] MCH 29.3 27.1 - 33.3 pg [facility] MCHC 32.4 32.3 - 35.7 g/dL [facility] RDW CV 13.6 11.1 - 14.9 % [facility] RDW SD 44.1 35.7 - 48.1 fL [facility] NRBC abs 0.00 0.00 - 0.01 K/cumm [facility] Blood 10/14/2023 1:04 AM DIRECTOR OF INSTITUTIONAL SALES 10/14/2023 1:36 AM DIRECTOR OF INSTITUTIONAL SALES Vinay Pratt DO LAB BLOOD ORDERABLES F inal Result [facility] [address] Department [employer] [place] [address] * (ABNORMAL) Comprehensive metabolic panel (10/14/2023 1:04 AM DIRECTOR OF INSTITUTIONAL SALES) Pathologist [facility] Sodium 130(L) 135 - 145 mmol/L [facility] Potassium, pl 4.3 3.3 - 4.9 mmol/L [facility] Chloride 90(L) 97 - 110 mmol/L [facility] CO2 21(L) 22 - 32 mmol/L [facility] Anion gap 19(H) 2 - 15 mmol/L [facility] BUN 66(H) 6 - 25 mg/dL [facility] Creatinine 10.57(H) 0.80 - 1.30 mg/dL [facility] Glucose 453(C) 70 - 199 mg/dL [facility] Comment: Critical result called to and read back by Brit Zeng RN on 10/14/2023 0211 to [id number] Interpretive Data Fasting glucose >/= 126 mg/dl [...] 2022. Calcium 9.2 8.5 - 10.3 mg/dL [facility] Bilirubin, total 0.3 0.1 - 1.2 mg/dL [facility] Protein, pl 6.4(L) 6.5 - 8.5 g/dL [facility] Albumin 3.4(L) 3.5 - 5.0 g/dL [facility] Alk phos 98 40 - 130 Units/L [facility] ALT 21 7 - 55 Units/L [facility] AST 28 10 - 50 Units/L [facility] Blood 10/14/2023 1:04 AM DIRECTOR OF INSTITUTIONAL SALES 10/14/2023 1:36 AM DIRECTOR OF INSTITUTIONAL SALES us Vinay Pratt DO LAB BLOOD ORDERABLES F inal Result [facility] [address] Department [place] [address] * (ABNORMAL) POCT glucose (10/13/2023 11:25 PM DIRECTOR OF INSTITUTIONAL SALES) Glucose, POC 534(C) 70 - 140 mg/dL [facility] Comment: For Glucose values <35 mg/dl when Hematocrit is >60 mg/dl,the test may not accurately detect significant hypoglycemia,and testing in the Laboratory should be considered if clinically indicated. 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 ([facility]) ([facility]) Aortic stenosis, severe S/P CABG x 3 Postsurgical aortocoronary bypass status NSTEMI (non-ST elevated myocardial infarction) ([facility]) ([facility]) Acute myocardial infarction, subendocardial infarction, episode of care unspecified S/P AVR documented in this encounter Admitting Diagnoses Diagnosis CAD in elim ira artery documented in this encounter Administered Medications Inactive Administered Medications - up to 3 most recent administrations Medication Order MAR Action Action Date Dose Rate Site acetaminophen (TYLENOL) 32 mg/mL oral liquid 1,000 mg 1,000 mg, feeding tube, Every 6 hours scheduled, First dose on Mon10/17/23 at 1400, If taking meds per tube., Indications: PainIndications:Pain Given 10/17/2023 11:12 PM DIRECTOR OF INSTITUTIONAL SALES 1,000 mg Given 10/17/2023 5:00 PM DIRECTOR OF INSTITUTIONAL SALES 1,000 mg acetaminophen (TYLENOL) tablet 1,000 mg 1,000 mg, oral, Every 6 hours scheduled, First dose on Mon10/17/23 at 1400, If able to swallow medications., Indications: PainIndications:Pain Given 10/20/2023 6:32 AM DIRECTOR OF INSTITUTIONAL SALES 1,000 mg Given 10/19/2023 11:00 PM DIRECTOR OF INSTITUTIONAL SALES 1,000 mg Given 10/19/2023 5:21 PM DIRECTOR OF INSTITUTIONAL SALES 1,000 mg acetaminophen (TYLENOL) tablet 1,000 mg 1,000 mg, oral, Every 6 hours scheduled, First dose (after last modification) on Mon10/20/23 at 1815, If able to swallow medications., Indications: PainIndications:Pain Given 10/27/2023 10:58 AM DIRECTOR OF INSTITUTIONAL SALES 1,000 mg Given 10/27/2023 6:04 AM DIRECTOR OF INSTITUTIONAL SALES 1,000 mg Given 10/26/2023 10:57 PM DIRECTOR OF INSTITUTIONAL SALES 1,000 mg acetaminophen (TYLENOL) tablet 500 mg 500 mg, oral, Every 6 hours PRN, 1st line for pain, Starting on Mon10/27/23 at 1200, If able to swallow medications., Indications: PainIndications:Pain Given 10/31/2023 5:43 AM CDT 500 mg Given 10/30/2023 9:36 PM CDT 500 mg al & mag hydroxide dquxuclstbi-soinufvxzwiosxm-udrqdfivj-nystatin (MAGIC MOUTHWASH) oral suspension 1-1-1-1 20 mL [...] Mon10/14/23 at 1254 Given 10/16/2023 9:42 PM DIRECTOR OF INSTITUTIONAL SALES 1 mg Given 10/15/2023 6:18 PM DIRECTOR OF INSTITUTIONAL SALES 1 mg Given 10/14/2023 8:25 PM DIRECTOR OF INSTITUTIONAL SALES 1 mg aminocaproic acid (AMICAR) 9,500 mg in sodium chloride 0.9% 100 mL IVPB 9,500 mg (rounded from 9,465 mg = 75 mg/kg ? 126.2 kg), intravenous, at 138 mL/hr, Administer over 60 Minutes, Once, On Mon10/17/23 at 1900, For 1 dose, Indications: Postsurgical HemorrhageIndications:Postsurgica l Hemorrhage New Bag 10/17/2023 6:38 PM DIRECTOR OF INSTITUTIONAL SALES 9,500 mg 138 mL/hr amiodarone (NEXTERONE) 150 mg/100 mL (1.5 mg/mL) in dextrose (premix) 150 mg 150 mg, intravenous, at 600 mL/hr, Administer over 10 Minutes, Once, On Mon10/23/23 at 0845, For 1 dose, Use filter 0.22 micron or less New Bag 10/23/2023 9:50 AM DIRECTOR OF INSTITUTIONAL SALES 150 mg 600 mL/hr amiodarone (PACERONE) tablet 200 mg 200 mg, oral, 2 times daily, First dose on Mon10/24/23 at 0900 Given 10/27/2023 8:28 AM DIRECTOR OF INSTITUTIONAL SALES 200 mg Given 10/26/2023 10:57 PM DIRECTOR OF INSTITUTIONAL SALES 200 mg Given 10/26/2023 8:37 AM DIRECTOR OF INSTITUTIONAL SALES 200 mg amiodarone (PACERONE) tablet 200 mg [...] less, Routine New Bag 10/23/2023 2:08 PM DIRECTOR OF INSTITUTIONAL SALES 1 mg/min 33.3 mL/hr New Bag 10/23/2023 9:55 AM DIRECTOR OF INSTITUTIONAL SALES 1 mg/min 33.3 mL/hr amiodarone in dextrose (NEXTERONE) 360 mg/200 mL (1.8 mg/mL) infusion (premix) 0.5 mg/min (16.6667 mL/hr, rounded to 16.67 mL/hr), 1.8 mg/mL, intravenous, Continuous, Starting on Mon10/23/23 at 1555, Until Mon10/24/23 at 0726, Use filter 0.22 micron or less, Routine New Bag 10/23/2023 11:47 PM DIRECTOR OF INSTITUTIONAL SALES 0.5 mg/min 16.67 mL/hr Rate/Dose Change 10/23/2023 4:15 PM DIRECTOR OF INSTITUTIONAL SALES 0.5 mg/min 16.67 m L/hr aspirin chewable [...] otherwise manipulate tablet/capsule. Given 10/16/2023 8:19 AM DIRECTOR OF [employer]STITUTIONAL SALES 81 mg Given 10/15/2023 8:41 AM DIRECTOR OF INSTITUTIONAL SALES 81 mg Given 10/14/2023 8:52 AM DIRECTOR OF INSTITUTIONAL SALES 81 mg atorvastatin (LIPITOR) tablet 80 mg [...] Bowel EvacuationIndications:Bowel Evacuation Given 10/16/2023 8:08 PM DIRECTOR OF INSTITUTIONAL SALES 10 mg bisacodyL (DULCOLAX) suppository 10 mg 10 mg, rectal, Once, On Gregoria 10/19/23 at 1545, For 1 dose, Indications: constipationIndications:constipation Given 10/19/2023 5:21 PM DIRECTOR OF INSTITUTIONAL SALES 10 mg calcitRIOL (ROCALTROL) capsule 0.25 mcg [...] ST 667 mg Given 10/19/2023 12:07 PM DIRECTOR OF INSTITUTIONAL SALES 667 mg Given 10/19/2023 8:12 AM DIRECTOR OF INSTITUTIONAL SALES 667 mg calcium acetate(phosphat bind) (PHOSLO) capsule 667 mg 667 mg, oral, Nightly, First dose on Mon10/18/23 at 2100, Take with food Given 10/19/2023 9:41 PM DIRECTOR OF INSTITUTIONAL SALES 667 mg Given 10/18/2023 9:47 PM DIRECTOR OF INSTITUTIONAL SALES 667 mg calcium chloride 1 g/110 mL in sodium chloride 0.9% (premix) solution 1 g 1 g, intravenous, Administer over 60 Minutes, Once, On Mon10/17/23 at 1430, For 1 dose, Indications: hypocalcemiaIndications:hypocalce michele New Bag 10/17/2023 2:19 PM DIRECTOR OF INSTITUTIONAL SALES 1 g calcium chloride 1 g/110 mL [...] hypocalcemiaIndications:hypocalce michele New Bag 10/18/2023 12:32 AM DIRECTOR OF INSTITUTIONAL SALES 1,000 mg Carrier Fluids for Secondary Infusion [...] Prophylaxis, SurgicalIndications:Prophylaxis, Surgical Given 10/19/2023 8:17 AM DIRECTOR OF INSTITUTIONAL SALES 1,000 mg 200 mL/hr Given 10/18/2023 9:07 AM DIRECTOR OF INSTITUTIONAL SALES 1,000 mg 200 mL/hr ceFAZolin (ANCEF) 1 [...] until manually unheld Given 10/16/2023 8:20 AM DIRECTOR OF INSTITUTIONAL SALES 0.6 mg desmopressin (DDAVP) 38 mcg in sodium chloride 0.9% 50 mL IVPB 38 mcg (rounded from 37.86 mcg = 0.3 mcg/kg ? 126.2 kg), intravenous, at 119 mL/hr, Administer over 30 Minutes, Once, On Mon10/17/23 at 1515, For 1 dose New Bag 10/17/2023 3:10 PM DIRECT[employer] OF INSTITUTIONAL SALES 38 mcg 119 mL/hr dextrose (D10W) 10% bolus 125 mL 125 mL, intravenous, at 500 mL/hr, Administer over 15 Minutes, Every 30 min PRN, low blood glucose, Starting on Mon10/17/23 at 1329, BG less than 60 mg/dL OR BG 60-74 mg/dL and previous BG was greater than 90 mg/dL (Glucose is dropping FAST), Indications: hypoglycemic disorderIndications:hypoglyc emic disorder New Bag 10/19/2023 10:58 AM DIRECTOR OF INSTITUTIONAL SALES 1,000 mL 500 mL/hr dextrose (D10W) 10% [...] Call MD for each episode of hypoglycemia. [employer] STATES GLUTOSE-15 CONTAINS GLUCOSE 40% W/W (50% W/V), Indications: hypoglycemic disorderIndications:hypoglyc emic disorder dextrose 5% and Lactated Ringer's infusion 10 mL/hr, intravenous, Continuous, Starting on Tu10/17/23 at 1645 Rate/Dose Change 10/17/2023 6:00 PM DIRECT[employer] OF INSTITUTIONAL SALES 10 mL/hr 10 mL/hr New Bag 10/17/2023 4:03 PM DIRECT[employer] OF INSTITUTIONAL SALES 20 mL/hr 20 mL/hr dextrose 5% and Lactated Ringer's infusion 10 mL/hr, intravenous, Continuous, Starting on Gregoria 10/19/23 at 1145 Rate/Dose Change 10/19/2023 2:53 PM DIRECTOR OF INSTITUTIONAL SALES 10 mL/hr 10 mL/hr New Bag 10/19/2023 11:17 AM DIRECTOR OF INSTITUTIONAL SALES 20 mL/hr 20 mL/hr Dianeal low calcium-dextrose 2.5 % 6,000 mL dialysis solution intraperitoneal, Continuous, Starting on 10/14/23 at 1615, For 24 hours, CCPD bag number: 1, Indications: Peritoneal DialysisIndications:Peritoneal Dialysis New Bag 10/15/2023 10:58 PM DIRECTOR OF INSTITUTIONAL SALES New Bag 10/14/2023 7:22 PM DIRECTOR OF INSTITUTIONAL SALES Dianeal low calcium-dextrose 2.5 % 6,000 mL dialysis solution intraperitoneal, Continuous, Starting on 10/14/23 at 1615, For 24 hours, CCPD bag number: 2, Indications: Peritoneal DialysisIndications:Peritoneal Dialysis New Bag 10/15/2023 10:58 PM DIRECTOR OF INSTITUTIONAL SALES New Bag 10/14/2023 7:21 PM DIRECTOR OF INSTITUTIONAL SALES Dianeal low calcium-dextrose 2.5 % 6,000 mL dialysis solution intraperitoneal, Continuous, Starting on 10/16/23 at 1615, For 24 hours, CCPD bag number: 1, Indications: Peritoneal DialysisIndications:Peritoneal Dialysis New Bag 10/16/2023 6:53 PM DIRECTOR OF INSTITUTIONAL SALES Dianeal low calcium-dextrose 2.5 % 6,000 mL dialysis solution intraperitoneal, Continuous, Starting on Mon10/16/23 at 1615, For 24 hours, CCPD bag number: 2, Indications: Peritoneal DialysisIndications:Peritoneal Dialysis New Bag 10/16/2023 6:53 PM DIRECTOR OF INSTITUTIONAL SALES Dianeal low calcium-dextrose 2.5 % 6,000 mL dialysis solution intraperitoneal, Continuous, Starting on Mon10/17/23 at 2145, For 24 hours, CCPD bag number: 1, Indications: Peritoneal DialysisIndications:Peritoneal Dialysis New Bag 10/18/2023 10:57 PM DIRECTOR OF INSTITUTIONAL SALES New Bag 10/17/2023 10:32 PM DIRECTOR OF INSTITUTIONAL SALES Dianeal low calcium-dextrose 2.5 % 6,000 mL dialysis solution intraperitoneal, Continuous, Starting on Mon10/17/23 at 2145, For 24 hours, CCPD bag number: 2, Indications: Peritoneal DialysisIndications:Peritoneal Dialysis New Bag 10/20/2023 12:32 AM DIRECTOR OF INSTITUTIONAL SALES New Bag 10/18/2023 10:56 PM DIRECTOR OF INSTITUTIONAL SALES New Bag 10/17/2023 10:32 PM DIRECTOR OF INSTITUTIONAL SALES Dianeal low calcium-dextrose 2.5 % 6,000 mL dialysis solution intraperitoneal, Continuous, Starting on Mon10/18/23 at 2130, For 24 hours, CCPD bag number: 2, Indications: Peritoneal DialysisIndications:Peritoneal Dialysis New Bag 10/20/2023 12:32 AM DIRECTOR OF INSTITUTIONAL SALES Dianeal low calcium-dextrose 2.5 % 6,000 mL dialysis solution intraperitoneal, Continuous, Starting on Mon10/20/23 at 1630, For 24 days, CCPD bag number: 1, Indications: Peritoneal DialysisIndications:Peritoneal Dialysis New Bag 10/20/2023 7:05 PM DIRECTOR OF INSTITUTIONAL SALES Dianeal low calcium-dextrose 2.5 % 6,000 mL dialysis solution intraperitoneal, Continuous, Starting on Mon10/20/23 at 1630, For 24 days, CCPD bag number: 2, Indications: Peritoneal DialysisIndications:Peritoneal Dialysis New Bag 10/20/2023 7:04 PM DIRECTOR OF INSTITUTIONAL SALES Dianeal low calcium-dextrose 2.5 % 6,000 mL with heparin 3,000 Units dialysis solution intraperitoneal, Continuous, Starting on Mon24 at 1800, For 563 hours, CCPD bag number: 1, Indications: Peritoneal DialysisIndications:Peritoneal Dialysis New Bag 10/28/2023 6:17 PM [employer] OF INSTITUTIONAL SALES New Bag 10/27/2023 7:52 PM DIRECTOR OF INSTITUTIONAL SALES New Bag 10/26/2023 8:33 PM DIRECTOR OF INSTITUTIONAL SALES Dianeal low calcium-dextrose 2.5 % 6,000 mL [...] titrate, Routine Rate/Dose Change 10/18/2023 10:30 PM DIRECTOR OF INSTITUTIONAL SALES 2 mcg/kg/min 3.79 mL/hr Rate/Dose Verify 10/18/2023 10:00 PM [employer] OF INSTITUTIONAL SALES 3 mcg/kg/min 5.68 mL/hr Rate/Dose Verify 10/18/2023 8:00 PM DIRECTOR OF INSTITUTIONAL SALES 3 mcg/kg/min 5.68 mL/hr DOBUTamine in dextrose [...] 65, Routine Rate/Dose Verify 10/19/2023 4:00 AM DIRECTOR OF INSTITUTIONAL SALES 1 mcg/kg/min 1.89 mL/hr Rate/Dose Change 10/19/2023 3:00 AM [employer] OF INSTITUTIONAL SALES 1 mcg/kg/min 1.89 mL/hr Rate/Dose Verify 10/19/2023 2:00 AM DIRECT[employer] OF INSTITUTIONAL SALES 2 mcg/kg/min 3.79 mL/hr docusate (COLACE) 10 mg/mL oral liquid 100 mg 100 mg, feeding tube, 2 times daily, First dose on Mon10/17/23 at 1400, If taking meds per tube. Hold for diarrhea., Indications: constipationIndications:constipation Given 10/17/2023 8:14 PM DIRECTOR OF INSTITUTIONAL SALES 100 mg docusate sodium (COLACE) capsule 100 [...] DialysisIndications:ESRD on Dialysis Given 10/27/2023 10:12 PM DIRECTOR OF INSTITUTIONAL SALES 10,000 Units Left Upper Arm ergocalciferol (VITAMIN D) capsule 50,000 Units 50,000 Units, oral, Weekly, First dose on Mon10/14/23 at 1045, Do not crush, break, or open. Therapeutic Interchange for Vitamin D3 50,000 units weekly as approved by [facility]. Given 10/14/2023 12:28 PM DIRECTOR OF INSTITUTIONAL SALES 50,000 Units Extraneal 7.5% AMBU-FLEX 2,500 mL dialysis solution intraperitoneal, Continuous, Starting on 10/14/23 at 1615, For 24 hours, This is to be used as the last fill, CCPD bag number: 3, Indications: Peritoneal DialysisIndications:Peritone al Dialysis New Bag 10/15/2023 10:59 PM DIRECT[employer] OF [employer]STITUTIONAL SALES New Bag 10/14/2023 7:32 PM DIRECTOR OF INSTITUTIONAL SALES Extraneal 7.5% AMBU-FLEX 2,500 mL dialysis solution intraperitoneal, Continuous, Starting on Mon10/20/23 at 1630, For 24 days, CCPD bag number: 3, Indications: Peritoneal DialysisIndications:Peritoneal Dialysis New Bag 10/20/2023 7:05 PM DIRECTOR OF [employer]STITUTIONAL SALES Extraneal 7.5% AMBU-FLEX 2,500 mL with heparin [...] Mon10/17/23 at 1400 Given 10/17/2023 4:59 PM DIRECTOR OF [employer]AL SALES 20 mg famotidine (PEPCID) tablet 20 mg 20 mg, oral, Nightly, First dose on 10/14/23 at 2100 Given 10/16/2023 9:42 PM [employer] OF [employer]AL SALES 20 mg Given 10/15/2023 8:16 PM [employer] OF [employer]STIT[employer]AL SALES 20 mg Given 10/14/2023 9:26 PM [employer] OF [employer]STITUTIONAL SALES 20 mg gemfibroziL (LOPID) tablet 600 mg 600 mg, oral, 2 times daily before meals (bkfst, lunch), First dose on 10/14/23 at 0730 Given 10/16/2023 12:24 PM [employer] OF [employer]AL SALES 600 mg Given 10/16/2023 8:19 AM [employer] OF [employer]STIT[employer]AL SALES 600 mg Given 10/15/2023 12:22 PM [employer] OF [employer]STIT[employer]AL SALES 600 mg gentamicin (GARAMYCIN) 0.1 % cream topical, Daily, First dose on 10/14/23 at 1615, Apply to peritoneal dialysis catheter exit site daily during dressing change. DO NOT SUBSTITUTE WITH OINTMENT., Apply to affected area: dialysis access site, Indications: Infection ProphylaxisIndications:Infection Prophylaxis Given 10/16/2023 8:20 AM DIRECT[employer] OF [employer]STITUTIONAL SALES Given 10/14/2023 7:22 PM DIRECTOR OF INSTITUTIONAL SALES gentamicin (GARAMYCIN) 0.1 % cream topical, Daily, First dose on 10/16/23 at 1615, Apply to peritoneal dialysis catheter exit site daily during dressing change. DO NOT SUBSTITUTE WITH OINTMENT., Apply to affected area: dialysis access site, Indications: Infection ProphylaxisIndications:Infection Prophylaxis Given 10/16/2023 6:53 PM DIRECTOR OF INSTITUTIONAL SALES gentamicin (GARAMYCIN) 0.1 % cream topical, Daily, [...] Mon10/24/23 at 0739 Given 10/24/2023 7:45 AM DIRECT[employer] OF INSTITUTIONAL SALES 200 mg haloperidol (HALDOL) injection 1 mg 1 mg, intravenous, Once, On Mon10/18/23 at 1615, For 1 dose, If administered IV push, administer over 5 min for adults Given 10/18/2023 3:48 PM DIRECT[employer] OF [employer]STITUTIONAL SALES 1 mg haloperidol (HALDOL) injection 1 mg 1 mg, intravenous, Once, On Gregoria 10/19/23 at 1315, For 1 dose, If administered IV push, administer over 5 min for adults Given 10/19/2023 12:36 PM DIRECT[employer] OF [employer]STIT[employer]AL SALES 1 mg heparin 5,000 unit/mL injection 2,000 [...] SyndromeIndications:Acute Coronary Syndrome Given 10/14/2023 2:59 PM DIRECTOR OF INSTITUTIONAL SALES 3,000 Units heparin 5,000 unit/mL injection 3,000 [...] Coronary Syndrome New Bag 10/17/2023 4:27 AM DIRECT[employer] OF [employer]STITUTIONAL SALES 12.1 Units/kg/hr 14.9 mL/hr New Bag 10/16/2023 11:02 AM DIRECT[employer] OF INSTITUTIONAL SALES 12.1 Units/kg/hr 14.9 m L/hr New Bag 10/15/2023 6:16 PM DIRECTOR OF INSTITUTIONAL SALES 12.1 Units/kg/hr 14.9 mL /hr heparin in [...] is discontinued. , Indications: Mechanical Valve Thromboembolism ProphylaxisIndications:Director Meetings al Valve Thromboembolism Prophylaxis New Bag 10/20/2023 6:32 AM DIRECTOR OF INSTITUTIONAL SALES 9.3 Units/kg/hr 11.74 mL/hr Rate/Dose Change 10/20/2023 3:30 AM DIRECTOR OF INSTITUTIONAL SALES 9.3 Units/kg/hr 11 .74 mL/hr Rate/Dose Change 10/19/2023 3:21 PM DIRECTOR OF INSTITUTIONAL SALES 11.3 Units/kg/hr 1 4.26 mL/hr heparin in [...] fibrillationIndications:atrial fibrillation New Bag 10/27/2023 10:58 AM DIRECT[employer] OF INSTITUTIONAL SALES 12.7 Units/kg/hr 16.47 mL/hr New Bag 10/26/2023 4:50 PM DIRECT[employer] OF INSTITUTIONAL SALES 12.7 Units/kg/hr 16.47 m L/hr Rate/Dose Verify 10/26/2023 3:28 PM DIRECT[employer] OF INSTITUTIONAL SALES 12.7 Units/kg/hr 1 6.47 mL/hr heparin in [...] dose, Indications: PainIndications:Pain Given 10/25/2023 11:13 AM DIRECTOR OF INSTITUTIONAL SALES 1 tablet HYDROcodone-acetaminophen (NORCO) 5-325 mg per [...] pain., Indications: PainIndications:Pain Given 10/18/2023 8:42 AM DIRECTOR OF INSTITUTIONAL SALES 0.5 mg HYDROmorphone (PF) (DILAUDID) injection 0.2 mg 0.2 mg, intravenous, Administer over 2 Minutes, Every 2 hours PRN, breakthrough pain, Starting on Mon10/17/23 at 1324, May administer 1 hour after second dose of 1st line analgesic agent for uncontrolled or increasing pain., Indications: PainIndications:Pain Given 10/18/2023 7:13 AM DIRECTOR OF INSTITUTIONAL SALES 0.2 mg insulin glargine (LANTUS, SEMGLEE) 100 unit/mL injection 15 Units 15 Units, subcutaneous, Every morning, First dose (after last modification) on Mon10/14/23 at 0915, Do not mix with other insulins Given 10/14/2023 10:04 AM DIRECT[employer] OF [employer]STITUTIONAL SALES 15 Units Left Upper Arm insulin glargine (LANTUS, SEMGLEE) 100 unit/mL injection 20 Units 20 Units, subcutaneous, Every morning, First dose (after last modification) on 10/16/23 at 0900, Do not mix with other insulins Given 10/16/2023 8:19 AM DIRECT[employer] OF INSTITUTIONAL SALES 20 Units Left Lower Abdomen insulin glargine (LANTUS, SEMGLEE) 100 unit/mL injection 30 Units 30 Units, subcutaneous, Every morning, First dose (after last modification) on 10/15/23 at 0900, Do not mix with other insulins Given 10/15/2023 8:40 AM DIRECT[employer] OF [employer]STITUTIONAL SALES 30 Units Right Upper Arm insulin lispro [...] Diabetes MellitusIndications:Diabetes Mellitus Given 10/14/2023 4:01 AM DIRECTOR OF INSTITUTIONAL SALES 10 Units Left Upper Arm Given 10/14/2023 2:24 AM DIRECTOR OF [employer]STITUTIONAL SALES 10 Units Le ft Upper Arm insulin [...] Diabetes MellitusIndications:Diabetes Mellitus Given 10/16/2023 8:20 AM DIRECTOR OF INSTITUTIONAL SALES 6 Units Left Lower Abdomen Given 10/15/2023 12:22 PM DIRECTOR OF INSTITUTIONAL SALES 2 Units R ight Upper Abdomen Given 10/15/2023 8:40 AM DIRECTOR OF INSTITUTIONAL SALES 4 Units Ri ght Upper Arm insulin [...] Diabetes MellitusIndications:Diabetes Mellitus Given 10/21/2023 1:18 PM DIRECTOR OF [employer]STITUTIONAL SALES 6 Units Left Upper Arm Given 10/21/2023 8:38 AM DIRECTOR OF INSTITUTIONAL SALES 6 Units Ri ght Upper Arm insulin [...] manually unheldIndications:Diabetes Mellitus Given 10/23/2023 8:03 AM DIRECT[employer] OF INSTITUTIONAL SALES 4 Units Right Upper Arm Given 10/22/2023 9:17 PM DIRECT[employer] OF INSTITUTIONAL SALES 2 Units Le ft Upper Arm Given 10/22/2023 1:39 PM DIRECTOR OF INSTITUTIONAL SALES 2 Units Ri ght Upper Arm insulin lispro (HumaLOG, ADMELOG) 100 unit/mL injection 1 Units 1 Units, subcutaneous, Once, On Mon10/17/23 at 0245, For 1 dose Given 10/17/2023 2:33 AM DIRECTOR OF INSTITUTIONAL SALES 1 Units Left Lower Abdomen insulin lispro (HumaLOG, ADMELOG) 100 unit/mL injection 10 Units 10 Units, subcutaneous, 3 times daily with meals, First dose (after last modification) on Mon10/16/23 at 1800 Given 10/16/2023 5:33 PM DIRECT[employer] OF [employer]STITUTIONAL SALES 10 Units Left Lower Abdomen insulin lispro (HumaLOG, ADMELOG) 100 unit/mL injection 12 Units 12 Units, subcutaneous, 3 times daily with meals, First dose (after last modification) on Mon10/15/23 at 0800 Given 10/16/2023 12:24 PM [employer] OF [employer]STIT[employer]AL SALES 12 Units Left Lower Abdomen Given 10/16/2023 8:19 AM DIRECTOR OF INSTITUTIONAL SALES 12 Units Le ft Lower Abdomen Given 10/15/2023 6:16 PM DIRECTOR OF INSTITUTIONAL SALES 12 Units Le ft Upper Arm insulin lispro (HumaLOG, ADMELOG) 100 unit/mL injection 3 Units 3 Units, subcutaneous, Once, On Tu10/17/23 at 0700, For 1 dose Given 10/17/2023 6:24 AM DIRECTOR OF INSTITUTIONAL SALES 3 Units Left Lower Abdomen insulin lispro [...] Diabetes MellitusIndications:Diabetes Mellitus Given 10/20/2023 1:23 PM DIRECTOR OF INSTITUTIONAL SALES 3 Units Right Upper Arm Given 10/20/2023 9:40 AM DIRECTOR OF INSTITUTIONAL SALES 3 Units Le ft Upper Arm insulin lispro (HumaLOG, ADMELOG) 100 unit/mL injection 4 Units 4 Units, subcutaneous, Once, On 10/14/23 at 2200, For 1 dose Given 10/14/2023 9:27 PM DIRECT[employer] OF INSTITUTIONAL SALES 4 Units Left Lower Abdomen insulin lispro [...] manually unheldIndications:Diabetes Mellitus Given 10/23/2023 8:03 AM DIRECTOR OF INSTITUTIONAL SALES 4 Units Right Upper Arm insulin lispro (HumaLOG, ADMELOG) 100 unit/mL injection 5 Units 5 Units, subcutaneous, 3 times daily with meals, First dose (after last modification) on 10/14/23 at 1030 Given 10/14/2023 5:33 PM DIRECT[employer] OF INSTITUTIONAL SALES 5 Units Left Upper Arm Given 10/14/2023 10:04 AM DIRECTOR OF INSTITUTIONAL SALES 5 Units L eft Upper Arm insulin [...] For 1 dose Given 10/15/2023 1:51 AM DIRECTOR OF INSTITUTIONAL SALES 6 Units Left Lower Abdomen insulin lispro (HumaLOG, ADMELOG) 100 unit/mL injection 6 Units 6 Units, subcutaneous, Once, On Mon10/15/23 at 0630, For 1 dose Given 10/15/2023 6:06 AM DIRECT[employer] OF INSTITUTIONAL SALES 6 Units Right Upper Arm insulin lispro (HumaLOG, ADMELOG) 100 unit/mL injection 6 Units 6 Units, subcutaneous, Once, On Mon10/16/23 at 0545, For 1 dose Given 10/16/2023 5:29 AM DIRECTOR OF INSTITUTIONAL SALES 6 Units Left Lower Abdomen insulin lispro [...] Diabetes MellitusIndications:Diabetes Mellitus Given 10/22/2023 6:43 PM DIRECTOR OF INSTITUTIONAL SALES 4 Units Left Upper Arm Given 10/22/2023 1:39 PM DIRECTOR OF INSTITUTIONAL SALES 6 Units Ri ght Upper Arm Given 10/22/2023 8:23 AM DIRECTOR OF INSTITUTIONAL SALES 6 Units Ri ght Upper Arm insulin NPH (HumuLIN N, NovoLIN N) 100 unit/mL injection 15 Units 15 Units, subcutaneous, Daily, First dose on Mon10/20/23 at 0900, Reason for prescribing NPH: basal, Indications: Diabetes MellitusIndications:Diabetes Mellitus Given 10/21/2023 8:38 AM DIRECT[employer] OF INSTITUTIONAL SALES 15 Units Left Upper Arm Given 10/20/2023 9:40 AM DIRECT[employer] OF INSTITUTIONAL SALES 15 Units Le ft Upper Abdomen insulin NPH (HumuLIN N, NovoLIN N) 100 unit/mL injection 15 Units 15 Units, subcutaneous, Daily, First dose (after last modification) on Mon10/23/23 at 0900, Reason for prescribing NPH: basal, Indications: Diabetes Mellitus, On hold since Mon10/23/2023 at 1051 until manually unheldIndications:Diabetes Mellitus Given 10/23/2023 8:03 AM DIRECT[employer] OF INSTITUTIONAL SALES 15 Units Right Upper Arm insulin NPH (HumuLIN N, NovoLIN N) 100 unit/mL injection 20 Units 20 Units, subcutaneous, Daily, First dose (after last modification) on Mon10/22/23 at 0900, Reason for prescribing NPH: basal, Indications: Diabetes MellitusIndications:Diabetes Mellitus Given 10/22/2023 8:23 AM DIRECTOR OF INSTITUTIONAL SALES 20 Units Left Upper Arm insulin NPH (HumuLIN N, NovoLIN N) 100 unit/mL injection 30 Units 30 Units, subcutaneous, Nightly, First dose on Mon10/19/23 at 2200, At 10 [address] with PD at [place]. Hold if no PD planned., Reason for prescribing NPH: peritoneal dialysis, Indications: Diabetes MellitusIndications:Diabetes Mellitus Given 10/20/2023 9:24 PM DIRECT[employer] OF INSTITUTIONAL SALES 30 Units Left Outer Thigh Given 10/19/2023 11:00 PM DIRECTOR OF INSTITUTIONAL SALES 30 Units L eft Lower Abdomen insulin [...] Diabetes MellitusIndications:Diabetes Mellitus Given 10/22/2023 11:57 PM DIRECT[employer] OF [employer]STITUTIONAL SALES 40 Units Left Upper Arm Given 10/21/2023 9:35 PM DIRECT[employer] OF INSTITUTIONAL SALES 40 Units Le ft Upper Arm INSULIN PUMP REFILL lispro (HumaLOG, ADMELOG) solution 300 Units 300 Units, other, Once, On 10/28/23 at 2115, For 1 dose, For refill into insulin pump reservoir ONLY. Not for direct administration to the patient. Pump Refill 10/28/2023 11:18 PM DIRECTOR OF INSTITUTIONAL SALES 300 Units insulin regular bolus from bag 2-14 Units 2-14 Units, intravenous, Every 1 hour PRN, high blood sugar, Starting on Mon10/17/23 at 1329, Bolus as directed in insulin infusion orders., Indications: HyperglycemiaIndications:Hyperglyc emia Bolus from Bag 10/19/2023 5:05 AM DIRECTOR OF INSTITUTIONAL SALES 2 Units Bolus from Bag 10/18/2023 6:08 AM DIRECTOR OF INSTITUTIONAL SALES 2 Units insulin regular in 0.9% sodium [...] glucose is less than 75 mg/dL, call MD/COLOR REPAIRER 60 - 74 mg/dL: If previous BG [...] 300 mg/dL for 4 consecutive readings, call MD/COLOR REPAIRER for additional IV bolus orders. When new IV tubing is used, completely prime the tubing. Once primed, waste an additional 20 ml of insulin infusion using the IV pump prior to connecting to patient., RoutineIndications:Hyperglyc emia Rate/Dose Change 10/20/2023 2:00 AM DIRECTOR OF INSTITUTIONAL SALES 2 Units/hr 2 mL/hr Rate/Dose Change 10/20/2023 12:00 AM DIRECTOR OF INSTITUTIONAL SALES 1 Units/hr 1 mL/h r Rate/Dose Change 10/19/2023 10:00 PM DIRECTOR OF INSTITUTIONAL SALES 1.5 Units/hr 1.5 mL/hr INSULIN SUBCUTANEOUS PUMP [...] Self Administered Via Pump 10/24/2023 5:31 PM DIRECTOR OF INSTITUTIONAL SALES 8.15 Units Left Upper Arm Self Administered Via Pump 10/24/2023 12:43 PM DIRECT[employer] OF [employer]STITUTIONAL SALES 0 Units Left Upper Arm Self Administered Via Pump 10/24/2023 8:12 AM DIRECTOR OF INSTITUTIONAL SALES 13.4 Uni ts Left Upper Arm INSULIN [...] otherwise manipulate tablet/capsule. Given 10/16/2023 8:18 AM DIRECTOR OF INSTITUTIONAL SALES 60 m g Given 10/15/2023 8:41 AM DIRECT[employer] OF [employer]STITUTIONAL SALES 60 mg Given 10/14/2023 8:45 AM DIRECT[employer] OF [employer]STITUTIONAL SALES 60 mg Lactated Ringer's (LR) bolus 500 mL 500 mL, intravenous, Once, On Gregoria 10/19/23 at 1400, For 1 dose New Bag 10/19/2023 2:55 PM DIRECTOR OF INSTITUTIONAL SALES 500 mL 999 mL/hr levothyroxine (SYNTHROID) tablet [...] Indications: hypomagnesemiaIndications:hypomagnesemia New Bag 10/17/2023 8:15 PM DIRECTOR OF INSTITUTIONAL SALES 2 g metoprolol tartrate (LOPRESSOR) immediate release split tablet 6.25 mg 6.25 mg, oral, Once, On Mon10/20/23 at 1100, For 1 dose Given 10/20/2023 10:29 AM DIRECT[employer] OF INSTITUTIONAL SALES 6.25 mg metoprolol tartrate (LOPRESSOR) immediate release split tablet 6.25 mg 6.25 mg, oral, 2 times daily, First dose (after last reorder) on Mon10/20/23 at 2100 Given 10/22/2023 8:23 AM [employer] OF [employer]STITUTIONAL SALES 6.25 mg Given 10/21/2023 9:21 PM DIRECT[employer] OF INSTITUTIONAL SALES 6.25 mg Given 10/21/2023 4:41 AM DIRECT[employer] OF INSTITUTIONAL SALES 6.25 mg metoprolol tartrate (LOPRESSOR) immediate release [...] less than 60 Given 10/16/2023 12:23 PM DIRECT[employer] OF INSTITUTIONAL SALES 25 mg metoprolol tartrate (LOPRESSOR) immediate release tablet 50 mg 50 mg, oral, Every 12 hours, First dose on 10/14/23 at 0130 Given 10/14/2023 2:59 PM DIRECT[employer] OF [employer]STITUTIONAL SALES 50 mg Given 10/14/2023 2:17 AM DIRECTOR OF INSTITUTIONAL SALES 50 mg NIFEdipine (PROCARDIA XL/ADALAT CC) extended release tablet 90 mg 90 mg, oral, Daily, First dose on 10/14/23 at 0900, Do not crush, chew, cut, dissolve, open or otherwise manipulate tablet/capsule. Given 10/16/2023 8:19 AM DIRECT[employer] OF [employer]STITUTIONAL SALES 90 mg Given 10/15/2023 12:21 PM DIRECT[employer] OF INSTITUTIONAL SALES 90 mg Given 10/14/2023 8:44 AM DIRECTOR OF INSTITUTIONAL SALES 90 mg norepinephrine in dextrose 5% (LEVOPHED) [...] RoutineIndications:hypo tension Rate/Dose Verify 10/18/2023 10:00 AM DIRECTOR OF INSTITUTIONAL SALES 0.01 mcg/kg/min 2.37 mL/hr Rate/Dose Change 10/18/2023 8:01 AM DIRECTOR OF INSTITUTIONAL SALES 0.01 mcg/kg/min 2. 37 mL/hr Rate/Dose Change 10/18/2023 6:00 AM DIRECT[employer] OF INSTITUTIONAL SALES 0.02 mcg/kg/min 4. 73 mL/hr ondansetron (ZOFRAN) injection 4 mg 4 mg, intravenous, Administer over 2 Minutes, Every 6 hours PRN, nausea, vomiting, Starting on Mon10/17/23 at 1324, Administer no sooner than 6 hours after last dose. , Indications: Nausea and VomitingIndications:Nausea and Vomiting Given 10/25/2023 9:13 AM DIRECT[employer] OF INSTITUTIONAL SALES 4 mg Given 10/19/2023 5:21 PM DIRECTOR OF [employer]STITUTIONAL SALES 4 mg Given 10/19/2023 10:48 AM DIRECT[employer] OF INSTITUTIONAL SALES 4 mg oxyCODONE (ROXICODONE) tablet 2.5 mg 2.5 mg, oral, Once, On Mon10/20/23 at 0115, For 1 dose, Indications: PainIndications:Pain Given 10/20/2023 12:37 AM DIRECT[employer] OF INSTITUTIONAL SALES 2.5 mg oxyCODONE (ROXICODONE) tablet 5 mg 5 mg, oral, Every 3 hours PRN, 1st line for pain, Starting on Mon10/17/23 at 1324, May repeat in 1 hour if pain is uncontrolled or increasing. Max 2 doses within 1 dosing interval. Given 10/18/2023 3:58 PM DIRECT[employer] OF [employer]STIT[employer]AL SALES 5 mg Given 10/18/2023 10:52 AM DIRECT[employer] OF INSTITUTIONAL SALES 5 mg Given 10/18/2023 7:13 AM DIRECTOR OF [employer]STITUTIONAL SALES [address] (PROTONIX) extended release tablet 40 mg 40 mg, oral, Daily, First dose on Mon10/14/23 at 0900, Do not crush, chew, cut, dissolve, open or otherwise manipulate tablet/capsule., Indications: Treatment of Non-Bleeding Gastric DisorderIndications:Treatment of Non-Bleeding Gastric Disorder Given 10/16/2023 8:19 AM DIRECT[employer]STIT[employer]AL SALES 40 mg Given 10/15/2023 8:41 AM DIRECT[employer] OF [employer]STITUTIONAL SALES 40 mg Given 10/14/2023 8:44 AM DIRECT[employer] OF [employer]AL SALES [address] (PROTONIX) extended release [...] 1726, Indications: constipationIndications:constipation Given 10/15/2023 8:49 AM DIRECT[employer] OF [employer]STITUTIONAL SALES 17 g Given 10/14/2023 5:33 PM DIRECTOR OF INSTITUTIONAL SALES 17 g polyethylene glycol (MIRALAX) packet 17 g 17 g, oral, Daily, First dose (after last modification) on Mon10/20/23 at 1045, Hold for diarrhea, Indications: constipationIndications:constipation Given 10/30/2023 8:15 AM CDT 17 g Given 10/29/2023 8:19 AM CDT 17 g Given 10/22/2023 8:13 AM DIRECT[employer] OF [employer]STITUTIONAL SALES 17 g potassium chloride ER (KLOR-CON) extended [...] only, Routine Rate/Dose Verify 10/18/2023 6:00 AM DIRECT[employer] OF [employer]STITUTIONAL SALES 25 mcg/kg/min 18.93 mL/hr Rate/Dose Verify 10/18/2023 5:00 AM DIRECT[employer] OF [employer]STITUTIONAL SALES 25 mcg/kg/min 18.9 3 mL/hr Rate/Dose Verify 10/18/2023 4:00 AM DIRECT[employer] OF INSTITUTIONAL SALES 25 mcg/kg/min 18.9 3 mL/hr protamine 50 mg in sodium chloride 0.9% 50 mL IVPB 50 mg, intravenous, at 110 mL/hr, Administer over 30 Minutes, Once, On Mon10/17/23 at 1730, For 1 dose, Rate not to exceed 50 mg over 10 minutes, Indications: Heparin ToxicityIndications:Heparin Toxicity New Bag 10/17/2023 5:15 PM DIRECT[employer] OF [employer]STITUTIONAL SALES 50 m g 110 mL/hr ramelteon (ROZEREM) tablet 8 mg 8 mg, oral, Nightly PRN, sleep, Starting on Mon10/13/23 at 2332, Indications: Sleep-Onset InsomniaIndications:Sleep-Onset Insomnia Given 11/02/2023 8:24 PM CDT 8 mg Given 10/26/2023 10:57 PM [employer]AL SALES 8 mg Given 10/25/2023 9:05 PM [employer]STIT[employer]AL SALES 8 mg ranolazine ER (RANEXA) extended release tablet 500 mg 500 mg, oral, 2 times daily, First dose on Mon10/14/23 at 0130 Given 10/16/2023 9:42 PM [employer]AL SALES 500 mg Given 10/16/2023 8:18 AM [employer]STIT[employer]AL SALES 500 mg Given 10/15/2023 8:41 AM DIRECT[employer] OF [employer]STITUTIONAL SALES 500 mg scopolamine patch 72 hour 1 patch 1 patch, transdermal, Administer over 72 Hours, Once, On Mon10/18/23 at 1945, For 1 dose Medication Applied 10/18/2023 7:28 PM DIRECT[employer] OF [employer]STITUTIONAL SALES 1 patch Behind Right Ear senna (SENOKOT) [...] 1 dose New Bag 10/14/2023 2:54 AM DIRECTOR OF INSTITUTIONAL SALES 500 mL sodium chloride 0.9% flush 0.5-20 mL 0.5-20 mL, intra-catheter, Every 8 hours scheduled, First dose on Mon10/14/23 at 0015, Flush volume based on line type and size. Given 10/22/2023 9:19 PM [employer]AL SALES 10 mL Given 10/22/2023 6:36 PM DIRECT[employer] OF [employer]STITUTIONAL SALES 10 mL Given 10/22/2023 8:15 AM DIRECTOR OF INSTITUTIONAL SALES 10 mL sodium chloride 0.9% flush 0.5-20 [...] CDT 10 mL Given 10/28/2023 12:40 AM DIRECTOR OF INSTITUTIONAL SALES 20 mL Given 10/25/2023 9:14 AM DIRECTOR OF [employer]STITUTIONAL SALES 10 mL sodium chloride 0.9% infusion 50 mL/hr, intravenous, Continuous, Starting on Mon10/17/23 at 0015, Pre-Op/Floor, Start at midnight the day of surgery. New Bag 10/17/2023 12:45 AM [employer]OR [employer]STIT[employer] SALES 50 mL/hr 50 mL/hr sodium chloride 0.9% infusion 10 mL/hr, intravenous, Continuous, Starting on Mon10/17/23 at 1400 New Bag 10/17/2023 2:37 PM [employer] 10 mL/hr 10 mL/hr sodium chloride 0.9% IVPB 0-250 mL 0-250 mL, intravenous, Once, On Mon10/17/23 at 1615, For 1 dose, Prime blood tubing and administer amount needed to clear line (usually 50-100 mL) after transfusion complete. New Bag 10/17/2023 4:35 PM [employer]STITUTIONAL SALES 250 mL sodium chloride 0.9% IVPB 0-250 mL 0-250 mL, intravenous, Once, On Mon10/17/23 at 1615, For 1 dose, Prime blood tubing and administer amount needed to clear line (usually 50-100 mL) after transfusion complete. New Bag 10/17/2023 4:34 PM [employer]STIT[employer] SALES 250 mL sodium chloride 0.9% IVPB 0-250 mL 0-250 mL, intravenous, Once, On Mon10/17/23 at 1745, For 1 dose, Prime blood tubing and administer amount needed to clear line (usually 50-100 mL) after transfusion complete. New Bag 10/17/2023 6:27 PM [employer] SALES 250 mL sodium chloride 0.9% IVPB 0-250 mL 0-250 mL, intravenous, Once, On Mon10/17/23 at 1915, For 1 dose, Prime blood tubing and administer amount needed to clear line (usually 50-100 mL) after transfusion complete. New Bag 10/17/2023 8:00 PM [employer]ES 50 mL sodium chloride tablet 1 g 1 g, oral, 3 times daily with meals, First dose on Mon10/27/23 at 1030, Each 1 gram tablet contains 17 mEq of sodium., On hold since Mon10/29/2023 at 1130 until manually unheld Given 10/29/2023 8:18 AM CDT 1 g Given 10/28/2023 5:24 PM [employer] 1 g Given 10/28/2023 12:46 PM [employer]OR [employer] 1 g sodium chloride tablet 1 g [...] Mon10/14/23 at 1615 Given 10/16/2023 8:19 AM [employer] 100 mg Given 10/15/2023 8:41 AM [employer] 100 mg Given 10/14/2023 4:40 PM [employer] 100 mg torsemide (DEMADEX) tablet 100 mg 100 mg, oral, Daily, First dose on Mon10/19/23 at 0930 Given 10/21/2023 8:37 AM [employer] SALES 100 mg Given 10/20/2023 9:39 AM [employer] SALES 100 mg Given 10/19/2023 11:05 AM [employer] SALES 100 mg torsemide (DEMADEX) tablet 100 mg [...] For 1 dose Given 10/20/2023 11:08 PM [employer] SALES 50 mg traMADoL (ULTRAM) tablet 50 mg 50 mg, oral, Once, On Mon10/24/23 at 0000, For 1 dose Given 10/23/2023 11:32 PM [employer] 50 mg traMADoL (ULTRAM) tablet 50 mg 50 mg, oral, Every 8 hours PRN, 1st line for pain, Starting on Mon10/24/23 at 0741 Given 10/27/2023 6:04 AM [employer] 50 mg Given 10/26/2023 10:57 PM [employer] 50 mg Given 10/26/2023 1:32 PM [employer] 50 mg vancomycin 1500 mg/250 mL in [...] 100-120, Routine Rate/Dose Verify 10/18/2023 8:00 AM [employer] 0.04 Units/min 12 mL/hr Rate/Dose Verify 10/18/2023 6:00 AM [employer] 0.04 Units/min 12 mL/hr Rate/Dose Verify 10/18/2023 5:00 AM [employer] SAL[employer] 0.04 Units/min 12 mL/hr vasopressin in 5% dextrose (VASOSTRICT) 20 unit/100 mL (0.2 unit/mL) infusion 0.04 Units/min (12 mL/hr), 0.2 Units/mL, intravenous, Titrated, Starting on Mon10/18/23 at 0915, Until Mon10/18/23 at 1204, Initial rate: Do not titrate, Routine Rate/Dose Verify 10/18/2023 10:00 AM [employer] 0.04 Units/min 12 mL/hr Rate/Dose Verify 10/18/2023 8:58 AM [employer] SAL[employer] 0.04 Units/min 12 mL/hr vasopressin in 5% dextrose (VASOSTRICT) 20 unit/100 mL (0.2 unit/mL) infusion 0-0.04 Units/min (0-12 mL/hr), 0.2 Units/mL, intravenous, Titrated, Starting on Mon10/18/23 at 1245, Until Gregoria 10/19/23 at 0541, Initial rate: 0.04 units/min, Titrate: Up/Down, Titrate by: 0.01 units/min, Every: 5 minutes, Goal: SBP, SBP Goal: 110-130 mmHg, Routine Rate/Dose Change 10/18/2023 1:20 PM [employer] 0.01 Units/min 3 mL/hr Rate/Dose Change 10/18/2023 12:30 PM [employer] 0.02 Units/min 6 mL/hr New Bag 10/18/2023 12:15 PM [employer] 0.03 Units/min 9 mL/hr warfarin (COUMADIN) tablet 0.5 mg 0.5 mg, oral, Once (for warfarin), On Mon10/20/23 at 1800, For 1 dose, Target INR: 2 - 2.5, Indications: Mechanical Valve Thromboembolism ProphylaxisIndications:Mechanical Valve Thromboembolism Prophylaxis Given 10/20/2023 5:25 PM [employer] 0.5 mg warfarin (COUMADIN) tablet 1 mg 1 mg, oral, Once (for warfarin), On Mon10/28/23 at 1800, For 1 dose, Target INR: 2 - 2.5, Indications: Mechanical Valve Thromboembolism ProphylaxisIndications:Mechanical Valve Thromboembolism Prophylaxis Given 10/28/2023 5:24 PM [employer]ES 1 mg warfarin (COUMADIN) tablet 1.5 mg 1.5 mg, oral, Once (for warfarin), On Mon10/23/23 at 1800, For 1 dose, Target INR: 2 - 2.5, Indications: Mechanical Valve Thromboembolism ProphylaxisIndications:Mechanical Valve Thromboembolism Prophylaxis Given 10/23/2023 5:10 PM [employer] SALES 1.5 mg warfarin (COUMADIN) tablet 1.5 mg 1.5 mg, oral, Once (for warfarin), On Mon10/24/23 at 1800, For 1 dose, Target INR: 2 - 2.5, Indications: Mechanical Valve Thromboembolism ProphylaxisIndications:Mechanical Valve Thromboembolism Prophylaxis Given 10/24/2023 5:48 PM [employer] SALES 1.5 mg warfarin (COUMADIN) tablet 1.5 mg 1.5 mg, oral, Once (for warfarin), On Mon10/25/23 at 1800, For 1 dose, Target INR: 2 - 2.5, Indications: Mechanical Valve Thromboembolism ProphylaxisIndications:Mechanical Valve Thromboembolism Prophylaxis Given 10/25/2023 5:36 PM [employer] SALES 1.5 mg warfarin (COUMADIN) tablet 1.5 mg 1.5 mg, oral, Once (for warfarin), On Mon10/27/23 at 1800, For 1 dose, Target INR: 2 - 2.5, Indications: Mechanical Valve Thromboembolism ProphylaxisIndications:Mechanical Valve Thromboembolism Prophylaxis Given 10/27/2023 5:49 PM [employer] SALES 1.5 mg warfarin (COUMADIN) tablet 2 mg [...] Valve Thromboembolism Prophylaxis Given 10/18/2023 6:13 PM [employer] SALES 3 mg warfarin (COUMADIN) tablet 3 mg 3 mg, oral, Once (for warfarin), On Gregoria 10/19/23 at 1800, For 1 dose, Target INR: 2 - 2.5, Indications: Mechanical Valve Thromboembolism ProphylaxisIndications:Mechanical Valve Thromboembolism Prophylaxis Given 10/19/2023 5:21 PM [employer] SALES 3 mg warfarin (COUMADIN) tablet 3 mg 3 mg, oral, Once (for warfarin), On Gregoria 10/26/23 at 1800, For 1 dose, Target INR: 2 - 2.5, Indications: Mechanical Valve Thromboembolism ProphylaxisIndications:Mechanical Valve Thromboembolism Prophylaxis Given 10/26/2023 6:03 PM [employer] SALES 3 mg warfarin (COUMADIN) tablet 4 mg 4 mg, oral, Once (for warfarin), On [place] 11/02/23 at 1800, For 1 dose, Target [...] 11/02/2023 11/03/2023 al & mag hydroxide simethicone-diphenhydrami [id number] (MAGIC MOUTHWASH) oral suspension 1-1-1-1 20 mL [...] 2200, At 10 PM with PD at [place]. Hold if no PD planned., Reason for [...] RN - Reason: Other)1300 (Given - Provider: Jesisca Rodriguez RN) sodium chloride tablet 1 g [...] Call MD for each episode of hypoglycemia. MET[employer]ICAL [employer]OL PROGRAMMER STATES GLUTOSE-15 CONTAINS GLUCOSE 40% W/W [...] Call MD for each episode of hypoglycemia. METAL NUMERICAL CONTROL PROGRAMMER STATES GLUTOSE-15 CONTAINS GLUCOSE 40% W/W [...] TO ENDOCRINOLOGY 1 10/18/2023 IP CONSULT TO ANESTHESIA ATTENDING 1 IP CONSULT TO CARDIOLOGY 1 10/14/2023 [...] 11/03/2023 documented in this encounter Care Teams Elevator Pilot Relationship Specialty Start Date End Date Aditya Correa MD [address] [facility] [place] [address] PCP - General 10/17/19 documented as of this encounter
--- OUTSIDE RECORDS SUMMARY | 2024-09-07 23:35 | XMS_ITS | Encounter Summary ---
Author Organization [facility] Healthcare Address [address] [place] [address] Care Team Providers Care Consultant Name Role Phone Aditya Castro MD Primary Care Provider [phone] Encounter Details Date Type Department Care Team (Late st Contact Info) Description 10/17/2023 Orders Only [facility] Medical Group Cardiology [address] [place] [address] Mesha Castro MD [address] [place] [id number] Social History Tobacco Use Types Packs/Day Years Used Date Smoking Tobacco: Never Smokeless Tobacco: Former Alcohol Use Standard Drinks/Week Comments No 0 (1 standard drink = 0.6 oz pur e alcohol) [facility] Utilities Answer Date Recorded In the past 12 months has [employer], gas, oil, or water [employer] threatened to shut off services in your [...] week 10/16/2023 How often do you attend [facility] or denominational services? 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[employer] Gender Identity Not on file Sexual Orientation Not on file documented as of this encounter Plan of Treatment Not on file documented as of this encounter Procedures Procedure Name Priority Date/Time Associated Diagnosis Comments CARDIOLOGY DOCUMENT SCAN Routine 10/13/2023 2:17 PM HAMPER MAKER CARDIOLOGY DOCUMENT SCAN Routine 10/12/2023 2:15 PM HAMPER MAKER CARDIOLOGY DOCUMENT SCAN Routine 10/11/2023 2:09 PM HAMPER MAKER documented in this encounter Results * Cardiology Document Scan (10/13/2023 2:17 PM HAMPER MAKER) Anatomical Region Laterality Modality Other us Abelardo Petit MD [facility] CARDIAC SERVICES PROC EDURES Final Result * Cardiology Document Scan (10/12/2023 2:15 PM HAMPER MAKER) Anatomical Region Laterality Modality Other us Ripa Lianne Castro MD [facility] CARDIAC SERVICES PRO CEDURES Final Result * Cardiology Document Scan (10/11/2023 2:09 PM HAMPER MAKER) Anatomical Region Laterality Modality Other us Ripa Lianne Castro MD [facility] CARDIAC SERVICES PRO CEDURES Final Result documented in this encounter Visit Diagnoses Not on filedocumented in this encounter Care Teams Consultant Relationship Specialty Start Date End Date Aditya Castro MD [address] [facility] [place] [address] PCP - General 10/17/19 documented as of this encounter
--- OUTSIDE RECORDS SUMMARY | 2024-09-07 23:36 | XMS_ITS | Encounter Summary ---
Author Organization [facility] Healthcare Address [address] [place] [address] Care Team Providers Care Stamp Mounter Name Role Phone Aditya Correa MD Primary Care Provider [phone] Reason for Visit * Auth/Cert Specialty Diagnoses / Procedures Referred By Aguilar t Referred To Contact Diagnoses CAD in chickahominy indians-eastern division artery Needs CABG (12 or 1300) Procedures N Referral ID Status Reason Start Date Expiration Date Visits Re quested Visits Authorized [id number] 1 1 Encounter Details Date Type Department Care Team (Late st Contact Info) Description 10/17/2023 8:00 AM FOUNDRY WORKER GENERAL - 10/17/2023 12:50 PM FOUNDRY WORKER GENERAL Surgery [facility] Operating Room [address] [place] [address] Jaqueline Valero MD [address] [facility] [address] [place] [address] CORONARY ARTERY BYPASS GRAFT, AORTIC VALVE REPLACEMENT Surgery Details Date/Time Status Location OR Service Patient Class Case Class Case Type Trauma Case? 10/17/2023 8:00 AM Posted [facility] OPERATING ROOM OR Cardiothoracic Inpatient Elective Panel [...] often do you attend chur ch or gnosticism services? 1 to 4 times per year [...] on file Legal Sex Male 3:42 AM FOUNDRY WORKER GENERAL Gender Identity Not on file Sexual Orientation Not on file documented as of this encounter Last Filed Vital Signs Vital Sign Reading Time Taken Comments Blood Pressure 118/59 10/17/2023 7:16 AM FOUNDRY WORKER GENERAL Pulse 60 10/17/2023 7:22 AM FOUNDRY WORKER GENERAL Temperature 36.8 ??C (98.2 ??F) 10/17/2023 1 2:15 AM FOUNDRY WORKER GENERAL Respiratory Rate 12 10/17/2023 7:16 AM FOUNDRY WORKER GENERAL Oxygen Saturation 96% 10/17/2023 7:16 AM FOUNDRY WORKER GENERAL Inhaled Oxygen Concentration - - Weight 126.2 kg (278 lb 3.5 oz) 10/16/2023 9:00 AM FOUNDRY WORKER GENERAL Height 177.8 cm (5' 10 ) 10/13/2023 11: 22 PM FOUNDRY WORKER GENERAL Body Mass Index 39.48 10/17/2023 12:52 PM FOUNDRY WORKER GENERAL documented in this encounter Discharge Summaries * [...] 53-year-old male who has been transferred to [facility] for consideration of coronary artery bypass grafting and aortic valve replacement. His past medical history includes severe CAD with previous PCI, paroxysmal atrial fibrillation, type 1 diabetes mellitus, ESRD on peritoneal dialysis, hypertension, hyperlipidemia, and sleep apnea. He presented to [facility] in [place], [place] on 10/09/23 complaining of fatigue, malaise, [...] the catheterization. He has been transferred to [facility] for consideration of coronary artery bypass and [...] PUMP: Continue Omnipod 5 insulin pump with [employer] G6 CGM at home settings: TIME BASAL RATE TOTAL BASAL DAILY DOSE: 65.85 0330 1.7 units/hour 0800 0.8 units/hour 2000 5.8 units/hour Commonly known as: HumaLOG, ADMELOG levothyroxine 25 mcg tablet Take 1 tablet (25 mcg total) by mouth renewable energy technician before breakfast Commonly known as: SYNTHROID Start [...] REDNESS OR DRAINAGE OF INCISIONS OR FEVERS [phone] Diet Instructions Adult Discharge Diet Diet Type: Restrict salt intake to less than 4000 mg per day Low fat intake Diabetic renal diet. Heart healthy diet. Limit foods high in Vitamin K while taking Coumadin. High protein intake. Other Instructions Ambulatory referral to Home Health Service Line: Home Health Primary disciplines requested: Group Home Home Health Services: Disease and Medication Management [...] Center 11/22/2023 9:30 AM Jaqueline Valero MD [facility] [id number] PSA Contact Information for Follow-ups [facility] Home Care Services Specialty: Home Health and Hospice [address] [facility] [id number] Next Steps: Follow up Questions: Service Line: Home Health Primary disciplines requested: Group Home Home Health Services: Disease and Medication Management [...] Family Medicine Relationship: PCP - General [address] [facility] [id number] Next Steps: Follow up Comments: Follow up with established provider: 4 weeks Questions: To provider: ADITYA CORREA [facility] [address] [place] [id number] Next Steps: Follow up Comments: Dr. Valero is patient's Cardiothoracic Surgeon and will not be managing patient during Cardiac Rehab. Please contact patient's established Trimmer Sorter, Dr. Hamlet Ortega, for additional information. Questions: Please select the performing region: External Order To loc/pos: [facility] Inpatient POS Select a phase: Phase 2 # of visits: 1 Referral Status: External - Ready to Schedule Cosigned by Jaqueline Valero MD at 11/04/2023 2:05 PM CDT documented in this encounter Discharge Instructions * Discharge Instr - Diet* Carly Spencer RD - 10/20/2023 3:29 PM FOUNDRY WORKER GENERAL Diabetic renal diet. Heart healthy diet. Limit foods high in Vitamin K while taking Coumadin. High protein intake. DRY WORKER GENERAL DRY WORKER GENERAL * Attachments The following attachments cannot be sent through Care Everywhere. * CABG (Coronary Artery Bypass Graft) (Discharge Care) ([place] Citizen) * Transcatheter Aortic Valve Replacement (Discharge Care) ([place]) * Sternal Precautions (Wire Twisting Machine Operator) ([place] Citizen) * Warfarin (By mouth) ([place] Citizen) documented in this encounter Medications at Time [...] 1 tablet (25 mcg total) by mouth renewable energy technician before breakfast 30 tablet 1 11/04/2023 Linzess [...] (20 mg total) by mouth daily peg 414-sjlgrnekvmdr-tej cerin (ARTIFICAL TEARS) 1-0.2-0.2 % ophthalmic solution [...] 1 tablet (25 mcg total) by mouth renewable energy technician before breakfast 30 tablet 1 11/04/2023 HYDROcodone-acetamin [...] 53 y.o. male. Admit Dx: CAD in chickahominy indians-eastern division artery [I25.10]. Admitted on 10/13/2023. Patient's intake is adequate. Objective Dietary Orders (From admission, onward) Start Ordered 10/26/23 1235 Adult Diet Restricted; Consistent Carbohydrate; Renal; 1000mL = Diet 700/Nursing 300 Diet effective now Question Answer Comment ([facility]) Diet type Restricted Diabetic: Consistent Carbohydrate Renal: [...] Review: Scheduled Meds: al & mag hydroxide aejlhgkkbmg-lwdryyicgrmpbew-sulpekbtz-nystatin, 20 mL, swish & swallow, Q6H amiodarone, [...] of Weight Used for Estimated Protein : [place] Protein Needs Based on g/k.4 Total Protein Estimated Needs (gm): 105.42 Kcal/kg Type of Weight Used for Estimated Kcals: [place] Kcal/k Total Kcal/kg Estimated Needs : 2259 [...] consistent carbohydrate and renal diet. Plan: Added electrical supervisor check to pt's diet to help [...] ESRD on peritoneal dialysis initially presented to [facility] in [facility] on October 09 for symptoms of general [...] regimen of PD Follow-up with his primary customs brokerage agent Fernandez Carranza MD [facility]: MD Chula Domínguez, MD Renny Flood PA Derek Larson, MD FASN Rose Mattli, NP Rohan Devanpalli, MD Candace Shirley, ROBERTO [address] [place], [place] [address] [phone] - Office [phone] - Fax * Nusrat Us [facility] - 11/03/2023 11:05 AM CDT [...] 7.6 monitor for now Joselin Strickland MD [facility] SUBJECTIVE: Mr. Garvin is doing well [...] Dose Route Frequency al & mag hydroxide ewdplqfhhfe-opyndcpxkqqtovx-ngcngqiah-nystatin (MAGIC MOUTHWASH) oral suspension 1-1-1-1 20 mL [...] - prior GA with multiple PCI - [facility] showed multivessel disease - LVEF dropped [...] -venous doppler shows no DVT SHAMIKA Donald [facility] 11/03/2023 10:59 AM * [...] yesterday Levothyroxine 25 mcg started per Endocrine Mathews prn for pain control CPAP nightly Stress ulcer prophylaxis: Protonix DVT prophylaxis: coumadin dosing PT/OT Plan reviewed with LESLY Vallecillo 11/02/2023 * Nida Starr, BELLOWS TESTER - 11/02/2023 2:54 PM CDT Physical Therapy [...] Comments Incentive spirometer x 10 reps fom [id number] Transfer 1 Transfer From 1 Sit;Chair with [...] (from Physical Therapy) Active Problems Problem: PT [facility] Start Date: 10/21/23 Goal Start Date Expected End Date End Date PT LTG - [facility] 1 10/21/23 11/04/23 -- Goal Details: Patient will perform supine<>sit Independent. Goal Start Date Expected End Date End Date PT [facility] - [facility] 2 10/21/23 11/04/23 -- Goal Details: Patient will perform bed<>chair transfer Modified Independent with ww. Goal Start Date Expected End Date End Date PT [facility] - [facility] 3 10/21/23 11/04/23 -- Goal Details: Patient will ambulate 350 feet Modified Independent with wheeled walker. Goal Start Date Expected End Date End Date PT [facility] - [facility] 4 10/21/23 11/04/23 -- [...] ESRD on peritoneal dialysis initially presented to [facility] in [facility] on October 09 for symptoms of general [...] free T4, synthroid started Fernandez Carranza MD [facility]: MD Chula Domínguez, MD Renny Flood, MD STANISLAV Camacho, MD Shanda Pederson NP [address] [place], [place] [address] [phone] - Office [phone] - Fax * Pradeep Reeves NP - [...] Dose Route Frequency al & mag hydroxide hutbgxjkcbb-mvudleyyvdtadye-fuyhvkkpa-nystatin (MAGIC MOUTHWASH) oral suspension 1-1-1-1 20 mL [...] - prior GA with multiple PCI - [facility] showed multivessel disease - LVEF dropped [...] -venous doppler shows no DVT SHAMIKA Donald [facility] 11/02/2023 12:53 PM * [...] and Vancomycin for left lower extremity cellulitis Mathews prn for pain control CPAP nightly Stress [...] ESRD on peritoneal dialysis initially presented to [facility] in [facility] on October 09 for symptoms of general [...] a cardiology consultation which lead to a [facility]. Results were notable for severe CAD [...] free T4, synthroid started Fernandez Carranza MD [facility]: MD Chula Domínguez, MD Renny Flood PA Derek Larson, MD FASN Rose Mattli, NP Rohan Devanpalli, MD Candace Shirley, ROBERTO [address] [place] [address] [phone] - Office [phone] - Fax * Sophia Peoples COTA - [...] permanent denture broke after biting into an georgian muffin. Incisional pain is well controlled. OBJECTIVE: [...] Dose Route Frequency al & mag hydroxide hpjjkepmczr-cqevzbvsfbqlnch-dicwjbhfn-nystatin (MAGIC MOUTHWASH) oral suspension 1-1-1-1 20 mL [...] - prior GA with multiple PCI - [facility] showed multivessel disease - LVEF dropped [...] -venous doppler shows no DVT SHAMIKA Donald [facility] 11/01/2023 10:22 AM Agree with above note Feels better No chest pain BP stable S/P CABG, AVR ONX Om heparin and warfarin In sinus rhythm On antibiotics for cellulitis Patrick Almonte MD, FACC * Nusrat Us [facility] - 11/01/2023 9:40 AM CDT [...] add Vancomycin for left lower extremity cellulitis Mathews prn for pain control CPAP nightly Encouraged [...] ESRD on peritoneal dialysis initially presented to [facility] in [facility] on October 09 for symptoms of general [...] free T4, synthroid started Fernandez Carranza MD [facility]: MD Chula Domínguez PA Graeme Mindel, MD Justin Krafft, PA Derek Larson, MD FASN Rose Mattli, NP Rohan Devanpalli, MD Candace Shirley, NP [address] [place], [place] [address] [phone] - Office [phone] - Fax * Nida Starr, LUIS - [...] Date Expected End Date End Date PT [facility] 1 10/21/23 11/04/23 -- Goal Details: Patient will perform supine<>sit Independent. Goal Start Date Expected End Date End Date PT [facility] 2 10/21/23 11/04/23 -- Goal Details: Patient will perform bed<>chair transfer Modified Independent with ww. Goal Start Date Expected End Date End Date PT [facility] 3 10/21/23 11/04/23 -- Goal Details: Patient will ambulate 350 feet Modified Independent with wheeled walker. Goal Start Date Expected End Date End Date PT [facility] 4 10/21/23 11/04/23 -- Goal Details: Patient will ambulate up/down 1 step Modified Independent as needed to enter and exithome. Cosigned by Kamryn Mendez, PT at 10/31/2023 2:01 PM CDT * Nusrat Us [facility] - 10/31/2023 10:02 AM CDT Warfarin monitoring [...] Dose Route Frequency al & mag hydroxide kahqlqqmmbd-tqznvoumsgbughi-mqafawztx-nystatin (MAGIC MOUTHWASH) oral suspension 1-1-1-1 20 mL [...] - prior GA with multiple PCI - [facility] showed multivessel disease - LVEF dropped [...] doppler shows no DVT Emiliana Dickson NP [facility] 10/31/2023 8:40 AM * [...] 1 View - Portable - in AM [[id number]] Collected: 10/26/2340 Order Status: Completed Updated: 10/26/23742 [...] Continue Ancef for left lower extremity cellulitis Mathews prn for pain control CPAP nightly Encouraged incentive spirometer use and increased activity Stress ulcer prophylaxis: Protonix DVT prophylaxis: INR therapeutic PT/OT: Inpatient rehab denied by insurance, will explore alternative options Plan reviewed with LESLY Larose 10/30/2023 * Nida Starr, BELLOWS TESTER - 10/30/2023 11:37 AM CDT Physical Therapy [...] Date Expected End Date End Date PT [facility] - [facility] 1 10/21/23 11/04/23 -- Goal Details: Patient will perform supine<>sit Independent. Goal Start Date Expected End Date End Date PT [facility] - [facility] 2 10/21/23 11/04/23 -- Goal Details: Patient will perform bed<>chair transfer Modified Independent with ww. Goal Start Date Expected End Date End Date PT [facility] - [facility] 3 10/21/23 11/04/23 -- Goal Details: Patient will ambulate 350 feet Modified Independent with wheeled walker. Goal Start Date Expected End Date End Date PT [facility] - [facility] 4 10/21/23 11/04/23 -- [...] ESRD on peritoneal dialysis initially presented to [facility] in [facility] on October 09 for symptoms of general [...] free T4, synthroid started Fernandez Carranza MD [facility]: MD Chula Domínguez, MD Renny Flood PA Derek Larson, MD FASN Rose Mattli, MD Shanda Pederson, ROBERTO [address] [place] [address] [phone] - Office [phone] - Fax * Joselin Strickland MD - [...] any further issues overnight Joselin Strickland MD [facility] SUBJECTIVE: Mr. Garvin is sitting up [...] Dose Route Frequency al & mag hydroxide zlgzwknstbg-utwwqvfduzdfuds-kkjcwzaog-nystatin (MAGIC MOUTHWASH) oral suspension 1-1-1-1 20 mL [...] cellulitis. -venous doppler pending Emiliana Dickson NP [facility] 10/30/2023 8:17 AM * [...] ESRD on peritoneal dialysis initially presented to [facility] in [facility] on October 09 for symptoms of general [...] D/W nursing and Dr. Thao Walker MD [facility]: Ron R. [place], MD ChulaLESLY Queen MD Justin Krafft, PA Derek Larson, MD FASN Rose Mattli, NP Rohan Devanpalli, MD Candace Shirley, NP [address] [place], [place] [address] [phone] - Office [phone] - Fax * Manda Schaffer NP - [...] Dose Route Frequency al & mag hydroxide nsquwofexsh-vrdarkzawkhapek-rnahtgfbq-nystatin (MAGIC MOUTHWASH) oral suspension 1-1-1-1 20 mL [...] LLE -venous doppler pending Manda Schaffer NP [facility] 10/29/2023 9:35 AM Cosigned [...] discharge Plan reviewed with LESLY Mack 10/28/2023 DRY WORKER GENERAL * Sophia Peoples COTA - 10/28/2023 2:17 [...] Hills OT at 10/30/2023 1:30 PM CDT DRY WORKER GENERAL * Adam Walker MD - 10/28/2023 1:22 PM CST Images from the original note were not included. Nephrology Juvenal Garvin Jr. - 1970 Primary : Aditya Correa MD History and interval events: 53-year-old gentleman with history of type 1 diabetes mellitus on insulin pump, CHF, CAD, ESRD on peritoneal dialysis initially presented to [facility] in [facility] on October 09 for symptoms of general [...] T4, consider thyroid supplementation? Adam Walker MD [facility]: MD Chula Domínguez, MD Renny Flood PA Derek Larson, MD FASN Rose Mattli, NP Rohan Devanpalli, MD Candace Shirley, ROBERTO [address] [place] [address] [phone] - Office [phone] - Fax DRY WORKER GENERAL * Manda Schaffer NP - 10/28/2023 8:01 [...] Dose Route Frequency al & mag hydroxide ynipcltifze-dhlpazevhnztstk-znrdgzfjx-nystatin (MAGIC MOUTHWASH) oral suspension 1-1-1-1 20 mL [...] management per primary/nephrology team Manda Schaffer, ROBERTO [facility] 10/28/2023 8:02 AM Cosigned by Ramirez Newberry MD at 10/28/2023 1:08 PM FOUNDRY WORKER GENERAL DRY WORKER GENERAL DRY WORKER GENERAL * Yolanda Campos PA - 10/27/2023 6:58 [...] Intake/Output Summary (Last 24 hours) at 10/27/2023 0459 Last data filed at 10/27/2023 0850 Gross [...] discharge Plan reviewed with LESLY Pantoja 10/27/2023 DRY WORKER GENERAL * Taylor Jorge, GAVIN - 10/27/2023 2:33 PM CST Nutrition Follow-up Progress Note Encounter Date: 10/27/23 2:33 PM Nutrition Progress Summary: Patient is a 53 y.o. male. Admit Dx: CAD in chickahominy indians-eastern division artery [I25.10]. Admitted on 10/13/2023. Patient's intake is adequate. Objective Dietary Orders (From admission, onward) Start Ordered 10/26/23 1235 Adult Diet Restricted; Consistent Carbohydrate; Renal; 1000mL = Diet 700/Nursing 300 Diet effective now Question Answer Comment ([facility]) Diet type Restricted Diabetic: Consistent Carbohydrate Renal: [...] Review: Scheduled Meds: al & mag hydroxide rtvvxikgmrk-giibrplwlvtbhtw-okctqrmei-nystatin, 20 mL, swish & swallow, Q6H amiodarone, [...] of Weight Used for Estimated Protein : [place] Protein Needs Based on g/k.4 Total Protein Estimated Needs (gm): 105.42 Kcal/kg Type of Weight Used for Estimated Kcals: [place] Kcal/k Total Kcal/kg Estimated Needs : 2259 [...] High protein intake. Taylor Jorge RD, LD DRY WORKER GENERAL * Sophia Peoples COTA - 10/27/2023 1:25 [...] Suzie Aiken OT at 10/27/2023 2:23 PM FOUNDRY WORKER GENERAL DRY WORKER GENERAL DRY WORKER GENERAL * Joselin Strickland MD - 10/27/2023 12:02 [...] oral Q6H PRN al & mag hydroxide kysukjubngm-hkrastrfpdqxdvc-zcqcchlec-nystatin (MAGIC MOUTHWASH) oral suspension 1-1-1-1 20 mL [...] Rate: 100 bpm RR Interval: 599 msec ME Interval: 0 msec QRS Duration: 145 msec QT Interval: 394 msec QTC Interval: 451 msec P-R-T [place]: 0 - -9 - 132 degrees IMPRESSION: NORMAL SINUS RHYTHM [REASON: NORMAL P AXIS, ME, RATE \T\ RHYTHM] LEFT BUNDLE BRANCH BLOCK OCCASIONAL PVC Electronically Signed By: Jesus Huerta MD ASSESSMENT/PLAN: CAD - prior GA [...] management per primary/nephrology team Joselin Strickland MD, [facility] [phone] [facility] 10/27/2023 12:02 PM DRY WORKER GENERAL * Fernandez Carranza MD - 10/27/2023 9:44 AM CST Images from the original note were not included. Nephrology Juvenal Garvin Jr. - 1970 Primary : Aditya Correa MD History and interval events: 53-year-old gentleman with history of type 1 diabetes mellitus on insulin pump, CHF, CAD, ESRD on peritoneal dialysis initially presented to [facility] in [facility] on October 09 for symptoms of general [...] will see this weekend Fernandez Carranza MD [facility]: MD Chula Domínguez PA Graeme Mindel, MD Justin Krafft, PA Derek Larson, MD FASN Rose Mattli, NP Rohan Devanpalli, MD Candace Shirley, NP [address] [place], [place] [address] [phone] - Office [phone] - Fax DRY WORKER GENERAL DRY WORKER GENERAL * Guerline Rodriguez PA - 10/26/2023 4:12 [...] 1 View - Portable - in AM [[id number]] Collected: 10/26/23739 Order Status: Completed Updated: 10/26/23742 [...] discharge Plan reviewed with LESLY Larose 10/26/2023 DRY WORKER GENERAL * Pradeep Reeves NP - 10/26/2023 2:16 PM CST Cardiology Daily Progress - [facility] SUBJECTIVE: Mr. Garvin is lying in bed. He complains of incisional pain. Breathing is okay. Edema present. Review of Systems: Review of systems per HPI and otherwise all other systems are negative OBJECTIVE: Scheduled Medications Medication Dose Route Frequency acetaminophen (TYLENOL) tablet 1,000 mg 1,000 mg oral Q6H ASHLEY al & mag hydroxide euknhofyzmb-ofnqkdhyykrpxnq-iwhxrufea-nystatin (MAGIC MOUTHWASH) oral suspension 1-1-1-1 20 mL [...] - prior GA with multiple PCI - [facility] showed multivessel disease - LVEF dropped [...] - management per primary/nephrology team SHAMIKA Donald [facility] 10/26/2023 2:17 PM DRY WORKER GENERAL * Fernandez Carranza MD - 10/26/2023 12:29 PM CST Images from the original note were not included. Nephrology Juvenal Garvin Jr. - 1970 Primary : Aditya Correa MD History and interval events: 53-year-old gentleman with history of type 1 diabetes mellitus on insulin pump, CHF, CAD, ESRD on peritoneal dialysis initially presented to [facility] in [facility] on October 09 for symptoms of general [...] a cardiology consultation which lead to a [facility]. Results were notable for severe CAD and he was recommended to seek surgical revascularization evaluation prompting transfer to this facility. He missed his peritoneal dialysis last evening during transfer. He has been on peritoneal dialysis for approximately 2 years and tolerating this well under the care of Dr. Reyes. He does make some urine. [facility] Warfarin started for [...] PO4 binder with meals Fernandez Carranza MD [facility]: MD Chula Domínguez, MD Renny Flood PA Derek Larson, MD FASN Rose Mattli, NP Rohan Devanpalli, MD Candace Shirley, NP [address] [place], [place] [address] [phone] - Office [phone] - Fax DRY WORKER GENERAL * Nusrat Us RPh - 10/26/2023 11:17 [...] previous supratherapeutic response to 3 mg doses. DRY WORKER GENERAL * Gustavo Swan, PT - 10/26/2023 10:10 [...] Type 1 DM, HTN who presented to [facility] initially on 10/09/23 with general malaise and found to be in DKA and admitted to ICU. During hospitalization found to have elevated Troponins prompted cardiology evaluation and LHC significant for multivessel CAD and subse quently also found aortic stenosis. Transferred to [facility] 10/14/23 for surgical evaluation. Patient isnow s/p [...] Mobility Status;Inaccessible home environment;Home environment challenged Modified [place] Score 1 Plan Plan Continue with current [...] (from Physical Therapy) Active Problems Problem: PT [facility] Start Date: 10/21/23 Goal Start Date Expected End Date End Date PT [facility] - [facility] 1 10/21/23 11/04/23 -- Goal Details: Patient will perform supine<>sit Independent. Goal Start Date Expected End Date End Date PT [facility] - [facility] 2 10/21/23 11/04/23 -- Goal Details: Patient will perform bed<>chair transfer Modified Independent with ww. Goal Start Date Expected End Date End Date PT [facility] - [facility] [place] 3 10/21/23 11/04/23 -- Goal Details: Patient will ambulate 350 feet Modified Independent with wheeled walker. Goal Start Date Expected End Date End Date PT [facility] - [facility] [place] 4 10/21/23 11/04/23 -- Goal Details: Patient will ambulate up/down 1 step Modified Independent as needed to enter and exithome. Education: Patient has been educated on the role of PT, safety , precautions, mobility training, and home exercise program. Education completed via explanation, teach back, and demonstration. Patient verbalized understanding and demonstrated understanding DRY WORKER GENERAL * Nida Starr, BELLOWS TESTER - 10/25/2023 3:01 PM CST Physical Therapy 10/25/23 1501 PT Last Visit Session Type Treatment PT Received On 10/25/23 Safe Environment Arm band checked;Patient found in supine;Session completed bedside;Gait belt utilized for all out of bed mobility Subjective Agreeable to Therapy Additional Pertinent History per eval: 53 y/o M presents for surgical intervention on 10/14/23 from [facility]. Pt is s/p CABG x [...] End Date End Date PT G - [facility] [place] [facility] 3 10/21/23 11/04/23 -- Goal Details: Patient will ambulate 350 feet Modified Independent with wheeled walker. Goal Start Date Expected End Date End Date PT [facility] - [facility] [place] 4 10/21/23 11/04/23 -- Goal Details: Patient will ambulate up/down 1 step Modified Independent as needed to enter and exithome. Cosigned by Gustavo Swan, PT at 10/25/2023 4:45 PM FOUNDRY WORKER GENERAL DRY WORKER GENERAL DRY WORKER GENERAL * Guerline Rodriguez PA - 10/25/2023 2:13 [...] 1 View - Portable - in AM [[id number]] Collected: 10/25/23 1143 Order Status: Completed Updated: [...] discharge Plan reviewed with LESLY Larose 10/25/2023 DRY WORKER GENERAL * Nusrat Us RPh - 10/25/2023 10:39 [...] with another 1.5 mg dose and reassess. DRY WORKER GENERAL * Sophia Peoples COTA - 10/25/2023 9:43 [...] Vitals post activity BP 129/70, HR 63, [id number] Safe Environment End of Therapy Session Safe [...] Suzie Aiken OT at 10/25/2023 11:49 AM FOUNDRY WORKER GENERAL DRY WORKER GENERAL DRY WORKER GENERAL * Emiliana Dickson NP - 10/25/2023 9:27 [...] management per primary/nephrology team Emiliana Dickson NP [facility] 10/25/2023 9:28 AM Cosigned by Dilip Coehn MD at 10/25/2023 9:55 AM FOUNDRY WORKER GENERAL DRY WORKER GENERAL DRY WORKER GENERAL Associated attestation - Dilip Cohen MD - 10/25/2023 9:55 AM FOUNDRY WORKER GENERAL Patient seen at the bedside Is continuing to recover Still has some edema Continue anticoagulation for both the Afib for the on X valve Total time taken was 15 minute * Nida Starr, BELLOWS TESTER - 10/24/2023 11:46 AM CST Physical Therapy 10/24/23 1146 PT Last Visit Session Type Treatment PT Received On 10/24/23 Safe Environment Arm band checked;Patient found sitting at edge of bed;Session completed bedside;Gait belt utilized for all out of bed mobility Subjective Agreeable to Therapy Additional Pertinent History per eval: 53 y/o M presents for surgical intervention on 10/14/23 from [facility]. Pt is s/p CABG x [...] (from Physical Therapy) Active Problems Problem: PT [facility] Start Date: 10/21/23 Goal Start Date Expected End Date End Date PT [facility] 1 10/21/23 11/04/23 -- Goal Details: Patient will perform supine<>sit Independent. Goal Start Date Expected End Date End Date PT [facility] - [facility] [place] 2 10/21/23 11/04/23 -- Goal Details: Patient will perform bed<>chair transfer Modified Independent with ww. Goal Start Date Expected End Date End Date PT [facility] - [facility] [place] 3 10/21/23 11/04/23 -- Goal Details: Patient will ambulate 350 feet Modified Independent with wheeled walker. Goal Start Date Expected End Date End Date PT [facility] - [facility] [place] 4 10/21/23 11/04/23 -- Goal Details: Patient will ambulate up/down 1 step Modified Independent as needed to enter and exithome. Cosigned by Gina Mason DPT at 10/24/2023 3:12 PM FOUNDRY WORKER GENERAL DRY WORKER GENERAL DRY WORKER GENERAL * Fernandez Carranza MD - 10/24/2023 10:56 AM CST Images from the original note were not included. Nephrology Juvenal Garvin . - 1970 Primary : Aditya Correa MD History and interval events: 53-year-old gentleman with history of type 1 diabetes mellitus on insulin pump, CHF, CAD, ESRD on peritoneal dialysis initially presented to [facility] in [facility] on October 09 for symptoms of general [...] a cardiology consultation which lead to a [facility]. Results were notable for severe CAD [...] PO4 binder with meals Fernandez Carranza MD [facility]: MD Chula Domínguez, MD Renny Flood PA Derek Larson, MD FASN Rose Mattli, NP Rohan Devanpalli, MD Candace Shirley, ROBERTO [address] [place], [place] [address] [phone] - Office [phone] - Fax DRY WORKER GENERAL * Nona Alcala PA - 10/24/2023 10:15 [...] discharge Patient discussed with LESLY Vallecillo 10/24/2023 DRY WORKER GENERAL * Nusrat Us RPh - 10/24/2023 9:49 [...] setting (nutrition). Warfarin dose today: 1.5 mg DRY WORKER GENERAL * Salena Rene NP - 10/24/2023 9:26 AM CST Cardiology Daily Progress - [facility] SUBJECTIVE: Mr. Garvin is resting in bed. [...] water restriction with hyponatremia Salena Rene NP [facility] 10/24/2023 9:26 AM DRY WORKER GENERAL * Wyatt Rodriguez EP-C - 10/24/2023 8:08 AM CST Inpatient Cardiac Rehab Education Patient Information Patient Name: Juvenal Garvin Jr. : 1970 Room/Bed: [place] [id number] Insurance: [employer] + IDPA Progress Note Utilization Reviewer: ROSA Silva Date: 10/24/2023 Referring Diagnosis for Cardiac Rehab - s/p CABG x 3, AVR Education Provided Explained my role as a Cardiac Rehab Navigator (CRN). Provided Cardiac Rehab education to patient. Family was (not) present. Patient was provided with Cardiac Rehab education folder as well as a [facility] Heart Education booklet. Risk Factors: HTN, [...] fats)and exercise. Advised patient to consult their science editor, nurse, and/or physician if they have any questions about their diet/nutrition. Cardiac Rehab: Gave patient options of facilities for Outpatient Cardiac Rehab (OCR) in their community. Explained OCR program. Patient expressed knowledge towards local OCR program - patient prefers [facility] I anticipate no barriers for [...] working towards eventually trying to reach the [employer] recommendations in regards to exercise: [...] when it would be appropriate to call Trimmer Sorter's office, go to the ER, or call 911. Insurance Coverage: Briefly explained general insurance coverage for OCR, but assured patient that OCR facility will usually call insurance and inform patient of more of an approximate coverage. Post-Discharge: Explained process between discharge from hospital, and getting set up in an OCR program - follow upwith Trimmer Sorter, CRN follow up calls, OCR program contact. Conclusion Patient seems likely to participate in OCR. Reassured patient of importance and health care provider support of OCR. Patient verbalized understanding of education, and all questions were answered to the best of my ability. Will complete order for OCR to be sent to [facility]. Thank you for allowing us to speech therapy assistant in the care of this patient, please don't hesitate to contact the Cardiac Rehab Navigator office with any questions: [phone]. DRY WORKER GENERAL * Fernandez Carranza MD - 10/23/2023 5:30 PM CST Images from the original note were not included. Nephrology Juvenal Garvin Jr. - 1970 Primary : Aditya Correa MD History and interval events: 53-year-old gentleman with history of type 1 diabetes mellitus on insulin pump, CHF, CAD, ESRD on peritoneal dialysis initially presented to [facility] in [facility] on October 09 for symptoms of general [...] PO4 binder with meals Fernandez Carranza MD [facility]: MD Chula Domínguez, MD Renny Flood PA Derek Larson, MD FASN Rose Mattli, NP Rohan Devanpalli, MD Candace Shirley, NP [address] [place], [place] [address] [phone] - Office [phone] - Fax DRY WORKER GENERAL * Nona Alcala PA - 10/23/2023 3:04 [...] discharge Patient discussed with LESLY Vallecillo 10/23/2023 DRY WORKER GENERAL * Gustavo Swan, PT - 10/23/2023 10:42 [...] presents for surgical intervention on 10/14/23 from [facility]. Pt is s/p CABG x [...] (from Physical Therapy) Active Problems Problem: PT [facility] Start Date: 10/21/23 Goal Start Date Expected End Date End Date PT [facility] - [facility] 1 10/21/23 11/04/23 -- Goal Details: Patient will perform supine<>sit Independent. Goal Start Date Expected End Date End Date PT [facility] - [facility] [place] [facility] 2 10/21/23 11/04/23 -- Goal Details: Patient will perform bed<>chair transfer Modified Independent with ww. Goal Start Date Expected End Date End Date PT [facility] - [facility] 3 10/21/23 11/04/23 -- Goal Details: Patient will ambulate 350 feet Modified Independent with wheeled walker. Goal Start Date Expected End Date End Date PT [facility] - [facility] 4 10/21/23 11/04/23 -- Goal Details: Patient will ambulate up/down 1 step Modified Independent as needed to enter and exithome. Education: Patient has been educated on the role of PT, safety , precautions, mobility training, stairs, and home exercise program. Education completed via explanation, teach back, and demonstration.Patient verbalized understanding, demonstrated understanding, and needs ongoing reinforcement DRY WORKER GENERAL * Nusrat Us RPh - 10/23/2023 9:40 [...] the previous starting dose of 3 mg. DRY WORKER GENERAL * Nida Starr PTA - 10/23/2023 8:10 AM CST Physical Therapy 10/23/23 0810 PT Last Visit Session Type Treatment PT Received On 10/23/23 PT Missed Visit Reason Procedure/testing/appointment (Pt is currently on PD - nursing will notify when pt is finished.) DRY WORKER GENERAL * Saulo Kimball COTA - 10/23/2023 7:10 [...] Suzie Aiken OT at 10/23/2023 9:51 AM FOUNDRY WORKER GENERAL DRY WORKER GENERAL DRY WORKER GENERAL * Bartolo Solorio MD - 10/23/2023 6:38 AM CST Cardiology Inpatient Progress Note [facility] SUBJECTIVE: Pt had no [...] wafarin with mechanical valve Bartolo Solorio MD, [facility], [facility] 10/23/2023 6:38 AM DRY WORKER GENERAL * Ron Martinez MD - 10/22/2023 8:57 PM CST Images from the original note were not included. Nephrology Juvenal Garvin Jr. - 1970 Primary : Aditya Correa MD History and interval events: 53-year-old gentleman with history of type 1 diabetes mellitus on insulin pump, CHF, CAD, ESRD on peritoneal dialysis initially presented to [facility] in [facility] on October 09 for symptoms of general [...] urine. [facility] Warfarin started for [...] regimen Start CORRINE weekly Ron Martinez MD [facility]: MD Chula Domínguez PA Graeme Mindel, MD Justin Krafft, PA Derek Larson, MD FASN Rose Mattli, NP Rohan Devanpalli, MD Candace Shirley, NP [address] [place] [address] [phone] - Office [phone] - Fax DRY WORKER GENERAL * Yolanda Campos PA - 10/22/2023 5:09 [...] prophylaxis Patient discussed with LESLY Danielle 10/22/2023 DRY WORKER GENERAL * Makayla Diallo [facility] - 10/22/2023 9:06 AM CST [...] following significant increase yesterday Makayla Diallo, PharmD Inside Outside Sales Representative 10/22/23 9:06 AM DRY WORKER GENERAL * Bartolo Solorio MD - 10/22/2023 6:43 AM CST Cardiology Inpatient Progress Note [facility] SUBJECTIVE: Pt had no [...] - prior GA with multiple PCI - [facility] showed multivessel disease - LVEF dropped [...] wafarin with mechanical valve Bartolo Solorio MD, [facility], [facility] 10/22/2023 6:43 AM DRY WORKER GENERAL * Yolanda Campos PA - 10/21/2023 4:19 [...] prophylaxis Patient discussed with LESLY Danielle 10/21/2023 DRY WORKER GENERAL DRY WORKER GENERAL * Gina Mason DPT - 10/21/2023 9:05 AM CST Physical Therapy 10/21/23 09 General Chart Reviewed Yes Session Type Evaluation PT Received On 10/21/23 Safe Environment Arm band checked;Patient found in supine;Gait belt utilized for all out of bed mobility Subjective Agreeable to Therapy Additional Pertinent History 53 y/o M presents for surgical intervention on 10/14/23 from [facility]. 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 - [facility] 1 10/21/23 11/04/23 -- Goal Details: Patient will perform supine<>sit Independent. Goal Start Date Expected End Date End Date PT [facility] - [facility] 2 10/21/23 11/04/23 -- Goal Details: Patient will perform bed<>chair transfer Modified Independent with ww. Goal Start Date Expected End Date End Date PT [facility] - [facility] 3 10/21/23 11/04/23 -- Goal Details: Patient will ambulate 350 feet Modified Independent with wheeled walker. Goal Start Date Expected End Date End Date PT [facility] - [facility] 4 10/21/23 11/04/23 -- Goal Details: Patient will ambulate up/down 1 step Modified Independent as needed to enter and exithome. DRY WORKER GENERAL * Ron Martinez MD - 10/21/2023 8:48 AM CST Images from the original note were not included. Nephrology Juvenal Michael Pilo . - 1970 Primary : Aditya Correa MD History and interval events: 53-year-old gentleman with history of type 1 diabetes mellitus on insulin pump, CHF, CAD, ESRD on peritoneal dialysis initially presented to [facility] in [facility] on October 09 for symptoms of general [...] regimen Start CORRINE weekly Ron Martinez MD [facility]: MD Chula Domínguez PA Graeme Mindel, MD Justin Krafft, PA Derek Larson, MD FASN Rose Mattli, NP Rohan Devanpalli, MD Candace Shirley, NP [address] [place], [place] [address] [phone] - Office [phone] - Fax DRY WORKER GENERAL * Bartolo Solorio MD - 10/21/2023 8:08 AM CST Cardiology Inpatient Progress Note [facility] SUBJECTIVE: Pt had no [...] - prior GA with multiple PCI - [facility] showed multivessel disease - LVEF dropped [...] wafarin with mechanical valve Bartolo Solorio MD, [facility], [facility] 10/21/2023 8:08 AM DRY WORKER GENERAL * Dominique Fuentes RRT - 10/21/2023 12:29 AM CST 10/20/232246 NPPV Information NPPV Mode CPAP NPPV Status Refused NPPV Type V-60 NPPV ID L [id number] Therapist Assist Charges RT Therapist Assist NPPV 1 Encouraged patient to have his CPAP unit brought in since intolerable of ours. DRY WORKER GENERAL * Carly Spencer RD - 10/20/2023 3:27 PM CST Nutrition Follow-up Progress Note Encounter Date: 10/20/23 3:30 PM Nutrition Progress Summary: Patient is a 53 y.o. male. Admit Dx: CAD in [place] artery [I25.10]. Admitted on 10/13/2023. Pt s/p CABG/AVR 10/17/23. PMH includes Type I DM, ESRD on PD. Pt reports he is tolerating his meals and drinking the Nepro supplement. Increased protein intake encouraged. Pt new on Coumadin. Educated pt on Coumadin/diet interaction. Pt is familiar with his diabetic renal diet and plans to improve his adherence to diet. Geological Aide consult noted. Pt with good understanding [...] Renal Diet effective now Question Answer Comment ([facility]) Diet type Restricted Diabetic: Consistent Carbohydrate Renal: [...] of Weight Used for Estimated Protein : [place] Protein Needs Based on g/k.4 Total Protein Estimated Needs (gm): 105.42 Kcal/kg Type of Weight Used for Estimated Kcals: [place] Kcal/k Total Kcal/kg Estimated Needs : 2259 [...] High protein intake. Carly Spencer RD, LD DRY WORKER GENERAL * Saulo Kimball COTA - 10/20/2023 2:40 [...] assistance (Moderate assist santa/doff B socks with surface plate inspector and sock aid, Minimal assist santa/doff sweatpants with surface plate inspector) Transfer 1 Trials/Comments 1 Minimal assist sit [...] Stephanie Goodman OT at 10/21/2023 2:07 PM FOUNDRY WORKER GENERAL DRY WORKER GENERAL DRY WORKER GENERAL * Byron Olvera, ROBERTO - 10/20/2023 12:45 PM CSTAssociated Order(s): Critical Care Post-Procedure Diagnose(s): 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[place] artery of [place] heart with stable angina pectoris (HCC) Images from the original note were not included. [facility] CVR Daily Progress Note- Patient: Juvenal Garvin Jr. : 1970 Age: 53 y.o. male Admitting Physician: Jaqueline Valero MD Patient Service Coordinator: Kirsten Burns MD Shift: [facility] CVR AM Interval History: NEON Admitted to the hospital on 10/13/2023 11:18 PM for CAD in [place] artery [I25.10] Hospital Course: (10/17/23) s/p CABG [...] clean, dry, intact. SVG site with dermabond REGULATORY CONSULTANT. Drains: Chest tubes to -20 suction with [...] 10/20/2359 10/20/23 07 - 10/21/23 0659 Shift [id number] 24 Hour Total [id number] 4409-1550 24 Hour Total INTAKE P.O. 360 360 [...] s/p mechanical AVR Post CPB LEIA on ASSOCIATE FINANCIAL REPRESENTATIVE 5 with LVEF 40-50%, normal RV. (Told during report) no note in place. Arrived on ASSOCIATE FINANCIAL REPRESENTATIVE 5, NE 0.05 with low filling pressures and AAI 90. Post op bleeding requiring multiple transfusions. Bleeding from CT slowed overnight but oozing at lines and drain sites. - EPW VVI bu - Consider DC'ing CT - ASA daily - DC Heparin drip - Continue Warfarin per pharmacy - INR goal 2-3 - jail anticoagulation plan Warfarin and Plavix for NSTEMI - statin daily - Torsemide 100mg daily start today - DC Arterial line Paroxysmal atrial fibrillation Sinus bradycardia History of pAF. On Eliquis at home. Was on Heparin drip pre op. Arrived from OR AAI at 90 with reported bradycardia in PCU while on BB SB 50-60s. ASSOCIATE FINANCIAL REPRESENTATIVE weaned off overnight and EPW to VVI [...] off Insulin drip prior to transfer to [facility]. Insulin pump not working when he presented [...] by: Byron Olvera NP Authorized by: Byron Olevra NP CRITICAL CARE: Team: [facility] CT Shift: AM Level of Billing: Subsequent [...] plan with the patient's team and other medical/lead consultant staff. This time was in addition to and separate from care provided by other practitioners on this day of service. Cosigned by Kirsten Burns MD at 10/29/2023 10:56 PM CDT DRY WORKER GENERAL * Nusrat Us RPh - 10/20/2023 12:06 [...] increase as much as it did today. DRY WORKER GENERAL * Bartolo Solorio MD - 10/20/2023 9:18 AM CST Cardiology Daily Progress - [facility] SUBJECTIVE: Mr. Garvin is resting comfortably in [...] tablet 1,000 mg 1,000 mg oral Q6H [facility] aspirin chewable tablet 81 mg 81 mg [...] 0.9% (premix) solution 1,000 mg 1,000 mg [id number] PRN 1,000 mg at 10/18/23 0032 Carrier [...] - prior GA with multiple PCI - [facility] showed multivessel disease - LVEF dropped [...] fibrillation (HR in 60s) Salena Rene NP [facility] 10/20/2023 9:18 AM Pt evaluated with LOAN BROKER. He is doing well clinically with planned transfer from the ICU today. Afib rates are well-controlled (currently in the 60s) with plan detailed above. DRY WORKER GENERAL DRY WORKER GENERAL * Chula Valera PA - 10/20/2023 6:43 AM CST Images from the original note were not included. Nephrology Juvenal Garvin Jr. - 1970 Primary : Aditya Correa MD History and interval events: 53-year-old gentleman with history of type 1 diabetes mellitus on insulin pump, CHF, CAD, ESRD on peritoneal dialysis initially presented to [facility] in [facility] on October 09 for symptoms of general [...] Continue active and nutritional vitamin-D LESLY Ortiz [facility]: MD Chula Domínguez PA Graeme Mindel, MD Justin Krafft, PA Derek Larson, MD FASN Rose Mattli, NP Rohan Devanpalli, MD Candace Shirley, NP [address] [place], [place] [address] [phone] - Office [phone] - Fax DRY WORKER GENERAL DRY WORKER GENERAL * Eliana Márquez, PT - 10/19/2023 2:25 PM CST Physical Therapy Cancellation 10/19/23 1425 PT Last Visit Session Type Other (comment) PT Received On 10/19/23 Subjective Other Subjective Comment Per RN, Pt. is too fatigued to participate in therapy, will attempt evaluation 10/19. PT Missed Visit Reason MD/RN Hold;Asleep DRY WORKER GENERAL * Chula Valera PA - 10/19/2023 12:42 PM CST Images from the original note were not included. Nephrology Juvenalfabi Garvin . - 1970 Primary : Aditya Correa MD History and interval events: 53-year-old gentleman with history of type 1 diabetes mellitus on insulin pump, CHF, CAD, ESRD on peritoneal dialysis initially presented to [facility] in [facility] on October 09 for symptoms of general [...] vitamin-D Resume [place] with meals LESLY Ortiz [facility]: MD Chula Domínguez PA Graeme Mindel, MD Justin Krafft, PA Derek Larson, MD FASN Rose Mattli, NP Rohan Devanpalli, MD Candace Shirley, ROBERTO [address] [place], [place] [address] [phone] - Office [phone] - Fax DRY WORKER GENERAL DRY WORKER GENERAL * Reyes Odom - 10/19/2023 11:49 AM CST Occupational Therapy Evaluation 10/19/23 1035 General Chart Reviewed Yes Session Type Evaluation OT Received On 10/19/23 Safe Environment Arm band checked;Patient found in supine Subjective Agreeable to Therapy Subjective Comment I'm so cold and tired. Additional Pertinent History 53 y/o M presents for surgical intervention on 10/14/23 from [facility]. Pt is s/p CABG x [...] mobility at baseline. 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 Grooming Grooming: Where assessed Chair Grooming: Level of assistance Minimum Assist (Pt exhibiting functionally weak manager sharepoint strength and fine motor skills with BUEs. [...] Suzie Aiken OT at 10/19/2023 11:50 AM FOUNDRY WORKER GENERAL DRY WORKER GENERAL DRY WORKER GENERAL * Felipe Robledo DO - 10/19/2023 8:09 [...] [facility] 10/19/2023 8:09 AM DRY WORKER GENERAL * Dawna Castellanos NP - 10/19/2023 6:57 AM CSTAssociated Order(s): Critical Care Post-Procedure Diagnose(s): CAD in chickahominy indians-eastern division artery Images from the original note were not included. [facility] CVR Daily Progress Note- Patient: Juvenal Garvin Jr. : 1970 Age: 53 y.o. male Admitting Physician: Jaqueline Vlaero MD Patient Service Coordinator: Kirsten Burns MD Shift: [facility] CVR AM Interval History: ASSOCIATE FINANCIAL REPRESENTATIVE wean q6h for Scv02 >65-> off d/t HTN Changed to VVI 50, HR 60 Nasal cpap Dc dilaudid, dec oxy to 2.5 Admitted to the hospital on 10/13/2023 11:18 PM for CAD in chickahominy indians-eastern division artery [I25.10] Hospital Course: (10/17/23) s/p CABG [...] clean, dry, intact. SVG site with dermabond REGULATORY CONSULTANT. Drains: Chest tubes to -20 suction with [...] 0659 10/19/23 07 - 10/20/23 0659 Shift 8876-6570 4848-6788 24 Hour Total 4582-8346 5333-9831 24 Hour Total INTAKE P.O. 100 100 I.V.(mL/kg) 500(4) 500(4) Shift Total(mL/kg) 600(4.8) 600(4.8) OUTPUT Urine(mL/kg/hr) 155(0.1) 135(0.1) 290(0.1) 20 20 Drains 0 0 0 Other 1279 1279 1459 1459 Chest Tube 20 115 135 Shift Total(mL/kg) 1454(11.5) 250(2) 1704(13.5) 1479(11.7) 1479(11.7) NET -145 137 -9184 -7052 -3739 Weight (kg) 126.2 126.2 126.2 126.2 126.2 [...] s/p mechanical AVR Post CPB LEIA on ASSOCIATE FINANCIAL REPRESENTATIVE 5 with LVEF 40-50%, normal RV. (Told during report) no note in place. Arrived on ASSOCIATE FINANCIAL REPRESENTATIVE 5, NE 0.05 with low filling pressures and AAI 90. Post op bleeding requiring multiple transfusions. Bleeding from CT slowed overnight but oozing at lines and drain sites. Overnight ASSOCIATE FINANCIAL REPRESENTATIVE weaned off due to hypertension. EPW changed to VVI bu - Check Scvo2 and lactate now--->lactate 1.0, scvo2 70 - EPW VVI bu - CT to (-)20cm suction, can DC PCT today - ASA daily - Increase Heparin drip to full nomogram - Continue Warfarin per pharmacy - multiple spindle router operator anticoagulation plan Warfarin and Plavix for NSTEMI - statin daily - Torsemide 100mg daily start today - DC Arterial line Paroxysmal atrial fibrillation Sinus bradycardia History of pAF. On Eliquis at home. Was on Heparin drip pre op. Arrived from OR AAI at 90 with reported bradycardia in PCU while on BB SB 50-60s. ASSOCIATE FINANCIAL REPRESENTATIVE weaned off overnight and EPW to VVI [...] off Insulin drip prior to transfer to [facility]. Insulin pump not working when he presented to ER. Very labile blood sugars on basal/SSI regimen with glucose up to 300s. Likely difficulty with management due to PD. Remains on Insulin infusion, glucose labile while on PD. - Continue Insulin infusion per [facility] protocol - do not turn off drip [...] glycol and bisacodyl suppository PRN. Glycemic control: [place] Protocol insulin gtt.. Lab Results Component Value [...] by: Dawna Castellanos NP CRITICAL CARE: Team: [facility] CT Shift: AM Level of Billing: Critical [...] plan with the ICU team and other medical/lead consultant staff, making frequent assessments and decisions [...] Burns MD at 10/29/2023 10:55 PM CDT DRY WORKER GENERAL * Chula Valera PA - 10/18/2023 2:46 PM CST Images from the original note were not included. Nephrology Juvenal Garvin Jr. - 1970 Primary : Aditya Correa MD History and interval events: 53-year-old gentleman with history of type 1 diabetes mellitus on insulin pump, CHF, CAD, ESRD on peritoneal dialysis initially presented to [facility] in [facility] on October 09 for symptoms of general [...] vitamin-D Resume Phoslo with meals LESLY Ortiz [facility]: MD Chula Domínguez PA Graeme Mindel, MD Justin Krafft, PA Derek Larson, MD FASN Rose Mattli, NP Rohan Devanpalli, MD Candace Shirley, NP [address] [place], [place] [address] [phone] - Office [phone] - Fax DRY WORKER GENERAL DRY WORKER GENERAL * Nusrat Us, [facility] - 10/18/2023 10:05 AM CST [...] patient. Nusrat Us RPh 10/18/23 9:53 AM DRY WORKER GENERAL * Felipe Robledo DO - 10/18/2023 9:43 [...] [facility] 10/18/2023 9:43 AM DRY WORKER GENERAL * Aleah Win DPT - 10/18/2023 8:44 AM CST Physical Therapy 10/18/23 0844 General PT Received On 10/18/23 Subjective Comment patient requiring multiple vasopressors: will re-attempt PT evaluation DRY WORKER GENERAL * Dawna Castellanos NP - 10/18/2023 7:27 AM CSTAssociated Order(s): Critical Care Post-Procedure Diagnose(s): CAD in chickahominy indians-eastern division artery Images from the original note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 GENERAL DRY WORKER GENERAL DRY WORKER GENERAL documented in this encounter Consult Notes * Loraine Medina RN - 10/23/2023 12:00 PM CST Juvenal Garvin Jr. [id number] Jaqueline Valero MD Pre-Education Assessment Units of [...] Name: Juvenal Garvin Jr. : 1970 Room/Bed: [place] [address] Patient has had diabetes for NUMEROUS [...] Value Date HGBA1C 8.1 (H) 10/16/2023 Pump Certified Indoor Environmentalist: OMNIPOD Insulin Brand: NOVOLIN Does patient have supplies with them?: YES Bolus Wizard On?: YES INSULIN PUMP SETTINGS Total Daily Basal (TDB): 54 Basal Rates: 0000: 3.0 0800: 1.5 2000: 3.0 Insulin to Carb Ratio: 1:9 Sensitivity: 25 Target: 120 Active Insulin Time (AIT): 4 HOURS Thank you for this consult, Loraine Medina RN, Farebox Repairer 10/23/2023 12:44 PM DRY WORKER GENERAL * Loraine Medina RN - 10/20/2023 10:45 AM CSTAssociated Order(s): IP CONSULT TO SCHOOL PSYCHOLOGICAL EXAMINER Juvenal Garvin Jr. [id number] [place] [id number] Jaqueline Valero MD Pre-Education Assessment Units of [...] concerns at this time. Loraine Medina RN, Farebox Repairer 10/20/2023 11:27 AM DRY WORKER GENERAL * Augustin Bethea MD - 10/18/2023 10:51 [...] ketoacidosis, elevated cardiac enzymes. Further evaluation with [facility] revealed multivessel coronary artery disease. Patient transferred to [facility] for CABG. Patient underwent CABG x 3, mechanical AVR . Endocrine diabetes management. Hemoglobin A1c noted to be 8.1% 10/14, Patient has an insulin pump at home, not review his setting as the pump not available bedside. Patient continues to be confused and could not provide any history From endocrinology note in the past at [facility] 2021: BASAL RATE TOTAL BASAL [...] PUMP: Continue Omnipod 5 insulin pump with [employer] G6 CGM at home settings: TIME BASAL [...] high Assessment /Plan Principal Problem: CAD in [place] artery 1. Uncontrolled type 1 diabetes, A1c [...] don't hesitate to call. Augustin Bethea MD [facility] [email or web address] Office phone: [phone] Office fax: [phone] DRY WORKER GENERAL DRY WORKER GENERAL * Fernandez Carranza MD - 10/14/2023 3:27 PM CSTAssociated Order(s): IP CONSULT TO NEPHROLOGY Images from the original note were not included. Nephrology Juvenal Garvin Jr. - 1970 Primary : Aditya Correa MD History and interval events: 53-year-old gentleman with history of type 1 diabetes mellitus on insulin pump, CHF, CAD, ESRD on peritoneal dialysis initially presented to [facility] in [facility] on October 09 for symptoms of general [...] him to hemodialysis perioperatively Fernandez Carranza MD [facility]: MD Chula Domínguez PA Graeme Mindel, MD Justin Krafft, PA Derek Larson, MD FASN Rose Mattli, NP Rohan Devanpalli, MD Candace Shirley, ROBERTO [address] [place], [place] [address] [phone] Office [phone] - Fax DRY WORKER GENERAL DRY WORKER GENERAL * Guerline Rodriguez PA - 10/14/2023 2:10 PM CSTAssociated Order(s): IP CONSULT TO CARDIOTHORACIC SURGERY Cardiothoracic Surgery Consultation Patient Name: Juvenal Garvin Jr. Admit Date: 10/13/2023 Admitting Provider: Julio Lopez DO Chief Complaint Multivessel coronary artery disease, aortic valve stenosis History of Present Illness Juvenal Garvin is a 53-year-old male who has been transferred to [facility] for consideration of coronary artery bypass grafting and aortic valve replacement. His past medical history includes severe CAD with previous PCI, paroxysmal atrial fibrillation, type 1 diabetes mellitus, ESRD on peritoneal dialysis, hypertension, hyperlipidemia, and sleep apnea. He presented to [facility] in [place], [place] on 10/09/23 complaining of fatigue, malaise, [...] the catheterization. He has been transferred to [facility] for consideration of coronary artery bypass and aortic valve replacement. He had been receiving Eliquis and Plavix up until transfer to [facility]. Since arrival here he denies any additional chest pain episodes. His glucose levels continue to fluctuate but have reasonably controlled today. Past Medical History: Diagnosis Date CAD (coronary artery disease) Chest pain Diabetes mellitus (HCC) Diabetes mellitus type I (HCC) Dialysis patient ([facility]) (HCC) ESRD on dialysis ([facility]) ([facility]) GERD (gastroesophageal reflux disease) Hyperlipidemia [...] Jaqueline Valero MD at 10/15/2023 10:55 AM FOUNDRY WORKER GENERAL DRY WORKER GENERAL DRY WORKER GENERAL DRY WORKER GENERAL DRY WORKER GENERAL Associated attestation - Jaqueline Valero MD - 10/15/2023 10:55 AM FOUNDRY WORKER GENERAL I have seen and examined the patient, reviewed the electronic medical record, personally reviewed the patient's cardiac catheterization, and agree with the attached history and physical. In brief, he is a 53-year-old man with a history of end-stage renal disease on peritoneal dialysis,myocardial infarction, multiple prior coronary stenting procedures, and DVT who presented to [facility] with progressive exertional shortness breath, chest pain, and hyperglycemia. Repeat cardiac catheterization there revealed progressive coronary artery disease, which is now severe in all 3main coronary arteries. His left ventricular systolic function was abnormal and an echocardiogram there revealed significant aortic valve stenosis. And severe left ventricular systolic dysfunction. He was transferred to [facility] for further workup and treatment. ASSESSMENT: 53-year-old [...] for Monday. Jaqueline Valero MD Cardiothoracic Surgery [facility] * Pradeep Reeves, ROBERTO - 10/14/2023 12:13 PM CSTAssociated Order(s): IP CONSULT TO CARDIOLOGY Cardiology Consult - [facility] Reason For Consult: CAD Requesting Provider: Frank Cody MD SUBJECTIVE: Chief Complaint/History of Present Illness: Mr. Garvin is a 53 y/o man with hx of hypertension, dyslipidemia, diabetes, CAD s/p multiple prior PCI, ESRD, paroxysmal atrial fibrillation and DVT and BEN. The patient presented to [facility] with a complaint of hyperglycemia. [...] on his echo. He was transferred to [facility] for CTS evaluation. He is on a Heparin gtt at present. He denies any chest pain or shortness of breath at rest and denies any palpitations, lightheadedness and syncope. Review of Systems: Review of systems per HPI and otherwise all other systems are negative Past Medical History: Diagnosis Date CAD (coronary artery disease) Chest pain Diabetes mellitus (HCC) Diabetes mellitus type I ([facility]) Dialysis patient ([facility]) ([facility]) ESRD on dialysis ([facility]) ([facility]) GERD (gastroesophageal reflux disease) Hyperlipidemia [...] PUMP: Continue Omnipod 5 insulin pump with [employer] G6 CGM at home settings: TIME BASAL [...] and affect appropriate -Cardiac Cath (10/13/23 at [facility]): LM no dz. LCX 99% ostial stenosis and 90% stenosis atOM/LCX bifurcation. LAD mild diffuse disease in the ostium with a 90% stenosis at the origin of a very small high diagonal branch and otherwise mild LAD disease. RCA 99% mid stenosis. -Echo (10/11/23 at [facility]): LVEF 20-25%, moderate ASSESSMENT/PLAN: 1. [...] please don't hesitate to call. SHAMIKA Donald [facility] 10/14/2023 12:13 PM Cosigned by Felipe Robledo DO at 10/15/2023 10:13 AM FOUNDRY WORKER GENERAL DRY WORKER GENERAL DRY WORKER GENERAL DRY WORKER GENERAL DRY WORKER GENERAL documented in this encounter Nursing Notes * [...] (Comments): blister-popped Wound Status Healing Site Assessment Kaleva;Moist Marie-wound Assessment Fragile;Flaky;Dry;Erythematous Margins Defined edges Closure Unapproximated Drainage Amount Small Drainage Description Serous Drainage Odor No odor Dressing Status New Dressing Silver foam;Gauze rolled Interventions Cleansed Recommendations: cnc applications engineer to complete Polymem dressing as ordered. Pressure injury prevention measures dn moisture management in place. Education: Plan of Care discussed with: Patient, cnc applications engineer Questions answered: YES Wound/Ostomy will follow [...] high Assessment /Plan Principal Problem: CAD in [place] artery 1. Uncontrolled type 1 diabetes, A1c [...] out of town till 11/14. Pl call contact center engineer provider. Once ready per primary team can [...] don't hesitate to call. Augustin Bethea MD [facility] [email or web address] Office phone: [phone] Office fax: [phone] * Plan of Care - Jessica Rodriguez [...] PUMP: Continue Omnipod 5 insulin pump with [employer] G6 CGM at home settings: TIME BASAL [...] high Assessment /Plan Principal Problem: CAD in [place] artery 1. Uncontrolled type 1 diabetes, A1c [...] don't hesitate to call. Augustin Bethea MD [facility] free hospital for [email or web address] Office phone: [phone] Office fax: [phone] * Post-Procedure Note - Basilia John RN [...] THIS IS FOR THE INSULIN PUMP: Continue EverstringipUbicom 5 insulin pump with [employer] G6 CGM at home settings: TIME BASAL [...] high Assessment /Plan Principal Problem: CAD in [place] artery 1. Uncontrolled type 1 diabetes, A1c [...] don't hesitate to call. Augustin Bethea MD [facility] [email or web address] Office phone: [phone] Office fax: [phone] * Post-Procedure Note - Basilia John RN [...] 10/30/2023 2:42 PM CDT Received notification from [facility] acute rehab coke drawer, Carey Phillips , patients [employer] Medicare insurance denied request for authorization for inpatient acute rehab . Peer to peer offered at [phone] opt 4.peer to peer needs to be requested by 1200 noon tomorrow, 10/30. Reference no. [id number]. Member ID no. [id number]. Guerline GRACE notified of above. * Consults, [...] high Assessment /Plan Principal Problem: CAD in [place] artery 1. Uncontrolled type 1 diabetes, A1c [...] don't hesitate to call. Augustin Bethea MD [facility] free hospital for [email or web address] Office phone: [phone] Office fax: [phone] * Post-Procedure Note - Sugar Swanson RN [...] Afebrile. Room air. NSR. Pain treated with Mathews. ABX started for patients right leg.Lower dopplers [...] Room air. NSR. Patient pain treated with Mathews. Left herman dressing changed x1 due to leaking. DRY WORKER GENERAL * Plan of Care - Roel West LCSW - 10/28/2023 3:40 PM CST Car Dispatcher covering and followed up with request to learn if patient was approved for inpatient rehabilitation/insurance authorization status. SW inquired with Dr. Mya Frederick and awaiting notification. Intake Coordinators are not on-site and not customary to receive notification from insurance on weekend. DRY WORKER GENERAL * Consults, Subsequent - Augustin Bethea MD - 10/28/2023 2:50 PM FOUNDRY WORKER GENERAL Endocrine Note Reason for Consult: type 1 [...] THIS IS FOR THE INSULIN PUMP: Continue EverstringipUbicom 5 insulin pump with [employer] G6 CGM at home settings: TIME BASAL [...] high Assessment /Plan Principal Problem: CAD in [place] artery 1. Uncontrolled type 1 diabetes, A1c [...] don't hesitate to call. Augustin Bethea MD [facility] [email or web address] Office phone: [phone] Office fax: [phone] DRY WORKER GENERAL DRY WORKER GENERAL * Post-Procedure Note - Basilia John RN - 10/28/2023 7:14 AM FOUNDRY WORKER GENERAL Peritoneal Dialysis Treatment Summary: Juvenal Garvin . [...] well. Denied any c/o. PD drsg D&I DRY WORKER GENERAL * Consults, Subsequent - Augustin Bethea MD - 10/27/2023 5:47 PM FOUNDRY WORKER GENERAL Endocrine Note Reason for Consult: type 1 [...] THIS IS FOR THE INSULIN PUMP: Continue Beetle Beats 5 insulin pump with [employer] G6 CGM at home settings: TIME BASAL [...] high Assessment /Plan Principal Problem: CAD in [place] artery 1. Uncontrolled type 1 diabetes, A1c [...] don't hesitate to call. Augustin Bethea MD [facility] [email or web address] Office phone: [phone] Office fax: [phone] DRY WORKER GENERAL * Plan of Care - Genie Benjamin RN - 10/27/2023 12:55 PM CST [facility] inpatient acute facility rehab director pursuing insurance authorization for rehab when patient medically stable for discharge to rehab. DRY WORKER GENERAL * Post-Procedure Note - Radha Mercado RN [...] Tolerated tx without issues. Effluent clear yellow. DRY WORKER GENERAL * Consults, Subsequent - Augustin Bethea MD - 10/26/2023 6:25 PM FOUNDRY WORKER GENERAL Endocrine Note Reason for Consult: type 1 [...] PUMP: Continue Omnipod 5 insulin pump with [employer] G6 CGM at home settings: TIME BASAL [...] high Assessment /Plan Principal Problem: CAD in [place] artery 1. Uncontrolled type 1 diabetes, A1c [...] don't hesitate to call. Augustin Bethea MD [facility] [email or web address] Office phone: [phone] Office fax: [phone] DRY WORKER GENERAL * Plan of Care - Manda Solorzano RN - 10/26/2023 12:06 PM CST Per , pt has been accepted to [facility] Rehab (auth pending). Pt will be removed from [facility] HH schedule and no services provided at this time. DRY WORKER GENERAL * Plan of Care - Jacquelin Veliz MSW - 10/26/2023 10:43 AM CST ALARM ADJUSTER received message from Michelle with [facility] and they are able to accept Pt. They will start insurance authorization as PA feels that Pt is close to discharge. ALARM ADJUSTER met with Pt at bedside [facility] insurance [facility] for him. Pt states that he is agreeable to discharging to acute rehab when ready for discharge. DRY WORKER GENERAL * Post-Procedure Note - Basilia John RN - 10/26/2023 7:30 AM FOUNDRY WORKER GENERAL Peritoneal Dialysis Treatment Summary: Juvenal Garvin Jr. [...] well. Denied any c/o. PD drsg D&I DRY WORKER GENERAL * Plan of Care - Cyndi Persaud RN - 10/25/2023 4:14 PM CST Goals: Clinical Goals for the Shift: VSS. Afebrile. Room air. NSR. Monitor heart rate and rhythm. Manage pain. Manage heparin drip. Monitor PTTs. PD. Walk x3. Ensure safety and comfort. Summary: VSS. Afebrile. Room air. NSR. Pain treated with a one time dose of Mathews. Most recent PTT is 72. Heparin drip at 12.7units/kg/hr. DRY WORKER GENERAL * Consults, Subsequent - Augustin Bethea MD - 10/25/2023 11:14 AM FOUNDRY WORKER GENERAL Endocrine Note Reason for Consult: type 1 [...] PUMP: Continue Omnipod 5 insulin pump with [employer] G6 CGM at home settings: TIME BASAL [...] high Assessment /Plan Principal Problem: CAD in [place] artery 1. Uncontrolled type 1 diabetes, A1c [...] don't hesitate to call. Augustin Bethea MD [facility] [email or web address] Office phone: [phone] Office fax: [phone] DRY WORKER GENERAL * Post-Procedure Note - Radha Mercado, LUAN [...] Comments: Tolerated tx well. Effluent clear, yellow. DRY WORKER GENERAL * Plan of Care - Carey Alas [...] 20 SpO2: [96 %-98 %] 96 % DRY WORKER GENERAL * Consults, Subsequent - Augustin Bethea MD - 10/24/2023 11:07 AM FOUNDRY WORKER GENERAL Endocrine Note Reason for Consult: type 1 [...] PUMP: Continue Omnipod 5 insulin pump with [employer] G6 CGM at home settings: TIME BASAL [...] high Assessment /Plan Principal Problem: CAD in [place] artery 1. Uncontrolled type 1 diabetes, A1c [...] don't hesitate to call. Augustin Bethea MD [facility] [email or web address] Office phone: [phone] Office fax: [phone] DRY WORKER GENERAL * Post-Procedure Note - Radha Mercado RN [...] Tolerated tx without issues. Effluent clear yellow. DRY WORKER GENERAL * Plan of Care - Lucinda Mathews [...] during sleep periods will improve Outcome: Progressing DRY WORKER GENERAL DRY WORKER GENERAL DRY WORKER GENERAL * Plan of Care - Carey Alas [...] 20 SpO2: [95 %-99 %] 95 % DRY WORKER GENERAL * Plan of Care - Genie Benjamin RN - 10/23/2023 12:17 PM CST PT/OT recommending inpatient acute rehab at discharge. Informed patient of above. Patient declined rehab facility list and states he prefers [facility] inpatient acute rehab hospital. Referral sent. Response pending. DRY WORKER GENERAL * ECIN Note - Genie Benjamin RN [...] presents for surgical intervention on 10/14/23 from [facility]. Pt is s/p CABG x [...] and mobility at baseline. 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 -HK Grooming: Where assessed -- Chair -HK Grooming: Level of assistance -- Minimum Assist Pt exhibiting functionally weak manager sharepoint strength and fine motor skills with BUEs. [...] -- Moderate assist santa/doff B socks with surface plate inspector and sock aid,Minimal assist santa/doff sweatpants with surface plate inspector -KB -- Bed Mobility Comments 1 SBA [...] presents for surgical intervention on 10/14/23 from [facility]. 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 Pt is s/p CABG x [...] Initials Name Effective Dates SS Nida Starr, BELLOWS TESTER 06/30/22 - Eliana Joiner, PT 12/05/22 - Gustavo Olivas, PT 04/10/23 - PT Notes 10/21/2023 10:25 AM Progress Notes signed by Gina Mason DPT 10/23/2023 11:53 AM Progress Notes signed by Gustavo Swan, PT , LOOP SEWER Eval and Treat Last 72 Hours LOOP SEWER Evaluation No documentation. LOOP SEWER Treatment No documentation. Clinical Swallow Study No documentation. LOOP SEWER Notes Notes from 10/21/23 through 10/23/23 No notes of this type exist for this encounter. DRY WORKER GENERAL * Consults, Subsequent - Augustin Bethea MD - 10/23/2023 10:48 AM FOUNDRY WORKER GENERAL Endocrine Note Reason for Consult: type 1 [...] PUMP: Continue Omnipod 5 insulin pump with [employer] G6 CGM at home settings: TIME BASAL [...] high Assessment /Plan Principal Problem: CAD in [place] artery 1. Uncontrolled type 1 diabetes, A1c [...] don't hesitate to call. Augustin Bethea MD [email or web address] Office phone: [phone] Office fax: [phone] DRY WORKER GENERAL * Post-Procedure Note - Radha Mercado RN [...] Tolerated tx without issues. Effluent clear, yellow. DRY WORKER GENERAL * Plan of Care - Jessica Rodriguez [...] impaired skin integrity will decrease Outcome: Progressing DRY WORKER GENERAL * Post-Procedure Note - Rayna Be RN - 10/22/2023 12:03 PM FOUNDRY WORKER GENERAL Peritoneal Dialysis Treatment Summary: Juvenal Garvin Jr. [...] dwell time. Added dwell time 7 minutes. DRY WORKER GENERAL * Plan of Care - Hermes Savage [...] cough and deep breathing at this time. DRY WORKER GENERAL * Plan of Care - Jessica Rodriguez [...] impaired skin integrity will decrease Outcome: Progressing DRY WORKER GENERAL * Consults, Subsequent - Augustin Bethea MD - 10/21/2023 4:43 PM FOUNDRY WORKER GENERAL Endocrine Note Reason for Consult: type 1 [...] high Assessment /Plan Principal Problem: CAD in [place] artery 1. Uncontrolled type 1 diabetes, A1c [...] don't hesitate to call. Augustin Bethea MD [facility] [email or web address] Office phone: [phone] Office fax: [phone] DRY WORKER GENERAL * Plan of Care - Hermes Savage, [...] cough and deep breathing at this time. DRY WORKER GENERAL * Post-Procedure Note - Sugar Swanson RN [...] fibrin. Dr. Martinez notified of all findings. DRY WORKER GENERAL * Plan of Care - Dominique Fuentes RRT - 10/20/2023 8:19 PM CST Problem: Respiratory Goal: Achieves optimal ventilation and oxygenation Outcome: Progressing Positive Expiratory Pressure Therapy Patient educated on goals of PEP therapy. Will continue to monitor patient technique and encourage use of PEP device. Patient educated on effective cough and deep breathing at this time. DRY WORKER GENERAL * Plan of Care - Summer Pradhan [...] except when coughing. Tylenol given. Comfort/safety ensured. DRY WORKER GENERAL * Consults, Subsequent - Augustin Bethea MD - 10/20/2023 3:50 PM FOUNDRY WORKER GENERAL Endocrine Note Reason for Consult: type 1 [...] PUMP: Continue Omnipod 5 insulin pump with [employer] G6 CGM at home settings: TIME BASAL [...] high Assessment /Plan Principal Problem: CAD in [place] artery 1. Uncontrolled type 1 diabetes, A1c [...] don't hesitate to call. Augustin Bethea MD [facility] [email or web address] Office phone: [phone] Office fax: [phone] DRY WORKER GENERAL * Post-Procedure Note - Sugar Swanson RN [...] Dressing c/d/I. Clear yellow effluent with fibrin. DRY WORKER GENERAL * Plan of Care - Hermes Savage [...] to monitor sputum amount, color, and consistency. DRY WORKER GENERAL * Plan of Care - Campos Farmer [...] labs, titrate heparin to therapeutic, pain control DRY WORKER GENERAL * Consults, Subsequent - Augustin Bethea MD - 10/19/2023 7:08 PM FOUNDRY WORKER GENERAL Endocrine Note Reason for Consult: type 1 [...] PUMP: Continue Omnipod 5 insulin pump with [employer] G6 CGM at home settings: TIME BASAL [...] high Assessment /Plan Principal Problem: CAD in [place] artery 1. Uncontrolled type 1 diabetes, A1c [...] don't hesitate to call. Augustin Bethea MD [facility] [email or web address] Office phone: [phone] Office fax: [phone] DRY WORKER GENERAL * Plan of Care - Toña Saha, [...] protocol. Wean FiO2 to maintain SpO2 >92%. DRY WORKER GENERAL * Post-Procedure Note - Sugar Swanson RN [...] Clear yellow effluent with fibrin. MD notified. DRY WORKER GENERAL * Plan of Care - Ken Martell RRT - 10/18/2023 10:25 PM CST NPPV Patient is tolerating non-invasive ventilation well. Mask fits well with minimal leak. No skin break down noted. Will continue to monitor and titrate per MD order. DRY WORKER GENERAL * Provider Query - Dawna Castellanos NP - 10/18/2023 6:36 PM CST The documentation is unclear. Please clarify the 10/17 documentation of NSTEMI. (See Criteria Below). ___ Hx of NSTEMI (Greater than 28 days ago) _x__ Acute NSTEMI occurred at [facility] and pt transferred to [facility] for continued care for NSTEMI ___ Other [...] not available - Treatment: CABG: References: Fourth Tutor Key Definition of Myocardial Infarction Myocardial Infarction Diagnosis [...] Guidelines for Coding and Reporting, 2019 Fourth Tutor Key Definition of Myocardial Infarction, Scot Uriostegui, et al., Journal of [place] College of Cardiology 2018March 2018, http://www.onlinejacc.org/content/early//j.jacc ..[email or web address]?_[email or web address] Fourth Tutor Key Definition Separates GA From Myocardial Injury, Rolly Freeman, [employer], April 15, 2018, [email or web address] Tutor Key definition of myocardial infarction, Joint ESC/ACCF/AHA/WHF Task [...] become part of the patient???s medical record. DRY WORKER GENERAL * Plan of Care - Renetta Keys [...] 2L NC. Pulls 1500 on IS. Occasional LOAN BROKER Cough. Insulin gtt continues per orders. Appetite hindered due to nausea and some vomiting this afternoon. Zofran and haldol given. Pt states is better but doesn't want to eat at this time. Will continue to encourage increased activity, IS, Improved appetite, DRY WORKER GENERAL * Post-Procedure Note - Sugar Swanson RN [...] and intact and effluent clear and yellow. DRY WORKER GENERAL * Plan of Care - Ken Martell RRT - 10/18/2023 3:31 AM CST Mechanical Ventilation Patient is seen on full ventilator support. Patient is synchronous with the ventilator at the time.Will continue to monitor all pertinent lab data, chest radiographs and CT scans when available. Will titrate per MD order. DRY WORKER GENERAL * Op Note - Jaqueline Valero MD [...] mm OnX mechanical prosthesis, model #ONXANE, serial #[id number] ) 2. Coronary artery bypass grafting x [...] placement (25 cm) DATE OF PROCEDURE 10/17/2023 INSPECTOR FLOOR CEZAR Bernstein ANESTHESIA General Endotracheal Anesthesia ANESTHESIOLOGIST [...] with continuous 6-0 Prolene suture. A retrograde solar photovoltaic crew lead was given, the patient was placed into [...] checked through the bypass grafts with a ipnexus Doppler flow probe and each was found [...] Physician) Aditya Correa MD (Primary Care Provider) DRY WORKER GENERAL * Brief Op Note - Jaqueline Valero MD - 10/17/2023 8:47 AM CST Operative Progress Note Surgical Team: Surgeons and Role: * Jaqueline Valero MD - Primary Anesthesiologist: Ayden Alan MD FIXTURE RELAMPER: Ravi Thacker CRNA Ecd: Chang Stout CCP; Fransisco Ziegler CCP Scrap Sawyer: Nini Gibbs RN Scrub: Yamilet Bolivar RN; Teresa Dillon ST RNFA: Jessica Frost RN; Carey Weber RN Orientee Scrap Sawyer: Dee Ibarra RN DATE OF SURGERY : 10/17/2023 Preoperative Diagnosis: Pre-op Diagnosis * Aortic valve stenosis, etiology of cardiac valve disease unspecified [I35.0] * Coronary arteriosclerosis in [place] artery [I25.10] Postoperative Diagnosis: Post-op Diagnosis * Aortic valve stenosis, etiology of cardiac valve disease unspecified [I35.0] * Coronary arteriosclerosis in [place] artery [I25.10] Procedure(s): Procedure(s) (LRB): CORONARY ARTERY [...] Implant Name Type Inv. Item Serial No. Certified Indoor Environmentalist Lot No. LRB No. Used Action ON-X INTRNL Valve Coronary Aortic Mechanical On X 25mm ONXANE-25 - [id number] - [id number] ON-X INTRNL Valve Coronary Aortic Mechanical On X 25mm ONXANE-25 [id number] On-X Intrnl N/A 1 Implanted Blood/Blood Products Transfused: 1 unit platelets, 2 units FFP, 10 pack cryo, 3 units PRBC Complications: None Condition on Discharge from the operating room was stable Jaqueline Valero MD Date: 10/17/2023 Time: 12:59 PM No Resident involved on case DRY WORKER GENERAL * Post-Procedure Note - Zia Mahoney RN - 10/17/2023 3:38 AM FOUNDRY WORKER GENERAL Peritoneal Dialysis Treatment Summary: Juvenal Garvin JrSharath [...] well. Effluent yellow and clear. Dressing c/d/i. DRY WORKER GENERAL * Plan of Care - Lucinda Mathews, FANY - 10/16/2023 9:28 PM CST NPPV- Patient is tolerating non-invasive ventilation well. Mask fits well with minimal leak. No skin break down noted. Will continue to monitor and titrate per MD order. Problem: Obstructive Sleep Apnea (BEN) Goal: Patients ability to maintain adequate ventilation during sleep periods will improve Outcome: Progressing DRY WORKER GENERAL * Plan of Care - Yamilet Lopez [...] Understanding discharge needs will improve Outcome: Progressing DRY WORKER GENERAL * Initial Assessments - Genie Benjamin RN - 10/16/2023 10:46 AM FOUNDRY WORKER GENERAL PURNIMA Initial Assessment Interview Note Information Obtained [...] Medicare and IDPA Prescription Coverage: yes Pharmacy: [id number] - [place], [place] - [address] [place] [address] [place] [address] Primary Care Provider: Aditya Correa MD Prior to Admission: Functional Status: Minimal assist with ADLs Primary Caregiver: Self Support System: Children Home Care Services: No Outpatient Services: No Durable Medical Equipment: Cane (single prong) Living Arrangements: Children Type of Residence: Private residence Steps in home?: No steps inside or outside Medication management: Independent (10/13/23 9250) SDOH: Transportation: In the past 12 months, [...] a week How often do you attend jain or gnosticism services?: 1 to 4 times per year Do you belong to any clubs or organizations such as jain groups, unions, fraternal [...] Screening Potential discharge needs include: Home Health: [facility] (10/16/23 104) Dialysis: Dialysis History Start End Type Center Comments Peritoneal [facility] Dialysis Center Information 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 Active with [facility] in [place], [place] under the care of Dr. Stephen. [...] Collaboration with patient, MD, direct care nurse, Car Dispatcher, and other members of the health care team to assure needed interventions completed. 2. Return patient to optimal level of self-care post discharge. 3. [place] Layer will follow for Discharge Planning - interventions as needed 4. Anticipated level of care at discharge 5. Planned Discharge Disposition Genie Benjamin RN DRY WORKER GENERAL * Post-Procedure Note - Jackie Masters RN [...] & intact , Effluent clear & yellow DRY WORKER GENERAL * Plan of Care - Juanito Barrett RRT - 10/15/2023 9:43 PM CST Nocturnal CPAP Patient is tolerating non-invasive ventilation well. Mask fits well with minimal leak. No skin break down noted. Will continue to monitor and titrate per MD order.Oxygen Therapy Patient is being managed on oxygen titration protocol. Wean FiO2 to maintain SpO2 >92%. DRY WORKER GENERAL * Plan of Care - Janett Schulz [...] c/o chest pain, therapeutic on heparin infusion DRY WORKER GENERAL * Post-Procedure Note - Zia Mahoney RN - 10/15/2023 4:44 AM FOUNDRY WORKER GENERAL Peritoneal Dialysis Treatment Summary: Juvenal Garvin Jr. [...] well. Effluent yellow and clear. Dressing c/d/I. DRY WORKER GENERAL * Plan of Care - Juanito Barrett RRT - 10/14/2023 9:44 PM CST Nocturnal CPAP Patient is tolerating non-invasive ventilation well. Mask fits well with minimal leak. No skin break down noted. Will continue to monitor and titrate per MD order.Oxygen Therapy Patient is being managed on oxygen titration protocol. Wean FiO2 to maintain SpO2 >92%. DRY WORKER GENERAL * Plan of Care - Janett Schulz [...] pain, heparin gtt subtherapeutic, adjusted trinity MAR DRY WORKER GENERAL * Plan of Care - Ellie Zeng RN - 10/14/2023 1:55 AM CST Goals: Clinical Goals for the Shift: monitor vs tele labs and blood sugars, orientate to unit, promote comfort and safety, manage pain Summary: patient stable throughout shift with no complaints of pain. Blood sugars trending down, patient had RT set up CPAP for sleep. Patient NPO since 0000. DRY WORKER GENERAL DRY WORKER GENERAL documented in this encounter Plan of Treatment Pending Results Name Type Priority Associated Diagnoses Date /Time Renal function panel Lab Routine 09/22 1:06 AM FOUNDRY WORKER GENERAL Fibrinogen Lab Routine 10/18/2023 1:5 4 AM FOUNDRY WORKER GENERAL Protime-INR Lab Timed 10/25/2023 12 :33 AM FOUNDRY WORKER GENERAL aPTT Lab Routine 10/26/2023 2:2 9 AM FOUNDRY WORKER GENERAL aPTT Lab Routine 10/27/2023 2:3 0 AM FOUNDRY WORKER GENERAL TSH Lab Routine 10/27/2023 2:3 0 AM FOUNDRY WORKER GENERAL Scheduled Orders Name Type Priority Associated Diagnoses [...] Home Health Outpatient Referral Routine CAD in [place] artery 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[place] artery of [place] heart with stable angina pectoris ([facility]) ([facility]) Aortic stenosis, severe 1 Occurrences starting 10/20/2023 until 04/21/2024 Ambulatory referral to Cardiac Rehab Outpatient Referral Routine S/P CABG x 3 NSTEMI (non-ST elevated myocardial infarction) ([facility]) ([facility]) S/P AVR Expected: 11/07/2023 (Approximate), Expires: 10/23/2024 [...] PERITONEAL DIALYSIS (CCPD) Routine 10/29/2023 12:30 AM FOUNDRY WORKER GENERAL POCT GLUCOSE DEVICE Routine 10/28/2023 8:22 PM FOUNDRY WORKER GENERAL POCT GLUCOSE DEVICE Routine 10/28/2023 5:24 PM FOUNDRY WORKER GENERAL POCT GLUCOSE DEVICE Routine 10/28/2023 12:45 PM FOUNDRY WORKER GENERAL POCT GLUCOSE DEVICE Routine 10/28/2023 8:04 AM FOUNDRY WORKER GENERAL XR CHEST 1 VIEW IP Routine 10/28/2023 6:00 AM FOUNDRY WORKER GENERAL EGFR Routine 10/28/2023 12:34 AM FOUNDRY WORKER GENERAL APTT Routine 10/28/2023 12:34 AM FOUNDRY WORKER GENERAL PROTIME-INR Routine 10/28/2023 12:34 AM FOUNDRY WORKER GENERAL CBC WITHOUT DIFFERENTIAL Routine 10/28/2023 12:34 AM FOUNDRY WORKER GENERAL MAGNESIUM Routine 10/28/2023 12:34 AM FOUNDRY WORKER GENERAL RENAL FUNCTION PANEL Routine 10/28/2023 12:34 AM FOUNDRY WORKER GENERAL CONTINUOUS CYCLIC PERITONEAL DIALYSIS (CCPD) Routine 10/28/2023 12:30 AM FOUNDRY WORKER GENERAL POCT GLUCOSE DEVICE Routine 10/27/2023 10:01 PM FOUNDRY WORKER GENERAL POCT GLUCOSE DEVICE Routine 10/27/2023 5:48 PM FOUNDRY WORKER GENERAL CONTINUOUS CYCLIC PERITONEAL DIALYSIS (CCPD) Routine 10/27/2023 3:23 PM FOUNDRY WORKER GENERAL POCT GLUCOSE DEVICE Routine 10/27/2023 11:54 AM FOUNDRY WORKER GENERAL T4, FREE Routine 10/27/2023 11:02 AM FOUNDRY WORKER GENERAL POCT GLUCOSE DEVICE Routine 10/27/2023 8:28 AM FOUNDRY WORKER GENERAL XR CHEST 1 VIEW IP Routine 10/27/2023 6:14 AM FOUNDRY WORKER GENERAL OSMOLALITY, BLOOD Routine 10/27/2023 6:02 AM FOUNDRY WORKER GENERAL EGFR Routine 10/27/2023 2:30 AM FOUNDRY WORKER GENERAL APTT Routine 10/27/2023 2:30 AM FOUNDRY WORKER GENERAL PROTIME-INR Routine 10/27/2023 2:30 AM FOUNDRY WORKER GENERAL CBC WITHOUT DIFFERENTIAL Routine 10/27/2023 2:30 AM FOUNDRY WORKER GENERAL TSH Routine 10/27/2023 2:30 AM FOUNDRY WORKER GENERAL MAGNESIUM Routine 10/27/2023 2:30 AM FOUNDRY WORKER GENERAL RENAL FUNCTION PANEL Routine 10/27/2023 2:30 AM FOUNDRY WORKER GENERAL POCT GLUCOSE DEVICE Routine 10/26/2023 11:15 PM FOUNDRY WORKER GENERAL POCT GLUCOSE DEVICE Routine 10/26/2023 4:53 PM FOUNDRY WORKER GENERAL POCT GLUCOSE DEVICE Routine 10/26/2023 11:57 AM FOUNDRY WORKER GENERAL PEP THERAPY Routine 10/26/2023 8:00 AM FOUNDRY WORKER GENERAL POCT GLUCOSE DEVICE Routine 10/26/2023 8:00 AM FOUNDRY WORKER GENERAL XR CHEST 1 VIEW IP Routine 10/26/2023 5:09 AM FOUNDRY WORKER GENERAL EGFR Routine 10/26/2023 2:29 AM FOUNDRY WORKER GENERAL APTT Routine 10/26/2023 2:29 AM FOUNDRY WORKER GENERAL PROTIME-INR Routine 10/26/2023 2:29 AM FOUNDRY WORKER GENERAL CBC WITHOUT DIFFERENTIAL Routine 10/26/2023 2:29 AM FOUNDRY WORKER GENERAL MAGNESIUM Routine 10/26/2023 2:29 AM FOUNDRY WORKER GENERAL RENAL FUNCTION PANEL Routine 10/26/2023 2:29 AM FOUNDRY WORKER GENERAL APTT Timed 10/25/2023 9:15 PM FOUNDRY WORKER GENERAL POCT GLUCOSE DEVICE Routine 10/25/2023 9:14 PM FOUNDRY WORKER GENERAL POCT GLUCOSE DEVICE Routine 10/25/2023 4:51 PM FOUNDRY WORKER GENERAL APTT Timed 10/25/2023 2:48 PM FOUNDRY WORKER GENERAL POCT GLUCOSE DEVICE Routine 10/25/2023 11:15 AM FOUNDRY WORKER GENERAL POCT GLUCOSE DEVICE Routine 10/25/2023 9:49 AM FOUNDRY WORKER GENERAL POCT GLUCOSE DEVICE Routine 10/25/2023 7:36 AM FOUNDRY WORKER GENERAL XR CHEST 1 VIEW IP Routine 10/25/2023 6:52 AM FOUNDRY WORKER GENERAL APTT Routine 10/25/2023 6:48 AM FOUNDRY WORKER GENERAL POCT GLUCOSE DEVICE Routine 10/25/2023 4:23 AM FOUNDRY WORKER GENERAL EGFR Routine 10/25/2023 12:34 AM FOUNDRY WORKER GENERAL CBC WITHOUT DIFFERENTIAL Routine 10/25/2023 12:34 AM FOUNDRY WORKER GENERAL MAGNESIUM Routine 10/25/2023 12:34 AM FOUNDRY WORKER GENERAL RENAL FUNCTION PANEL Routine 10/25/2023 12:34 AM FOUNDRY WORKER GENERAL APTT Timed 10/25/2023 12:33 AM FOUNDRY WORKER GENERAL PROTIME-INR Timed 10/25/2023 12:33 AM FOUNDRY WORKER GENERAL CONTINUOUS CYCLIC PERITONEAL DIALYSIS (CCPD) Routine 10/25/2023 12:30 AM FOUNDRY WORKER GENERAL POCT GLUCOSE DEVICE Routine 10/24/2023 9:51 PM FOUNDRY WORKER GENERAL APTT STAT 10/24/2023 5:15 PM FOUNDRY WORKER GENERAL POCT GLUCOSE DEVICE Routine 10/24/2023 4:42 PM FOUNDRY WORKER GENERAL POCT GLUCOSE DEVICE Routine 10/24/2023 12:17 PM FOUNDRY WORKER GENERAL POCT GLUCOSE DEVICE Routine 10/24/2023 7:44 AM FOUNDRY WORKER GENERAL XR CHEST 1 VIEW IP Routine 10/24/2023 5:54 AM FOUNDRY WORKER GENERAL EGFR Routine 10/24/2023 1:03 AM FOUNDRY WORKER GENERAL PROTIME-INR Routine 10/24/2023 1:03 AM FOUNDRY WORKER GENERAL CBC WITHOUT DIFFERENTIAL Routine 10/24/2023 1:03 AM FOUNDRY WORKER GENERAL MAGNESIUM Routine 10/24/2023 1:03 AM FOUNDRY WORKER GENERAL RENAL FUNCTION PANEL Routine 10/24/2023 1:03 AM FOUNDRY WORKER GENERAL CONTINUOUS CYCLIC PERITONEAL DIALYSIS (CCPD) Routine 10/24/2023 12:30 AM FOUNDRY WORKER GENERAL POCT GLUCOSE DEVICE Routine 10/23/2023 11:14 PM FOUNDRY WORKER GENERAL POCT GLUCOSE DEVICE Routine 10/23/2023 10:43 PM FOUNDRY WORKER GENERAL PEP THERAPY Routine 10/23/2023 6:00 PM FOUNDRY WORKER GENERAL POCT GLUCOSE DEVICE Routine 10/23/2023 5:12 PM FOUNDRY WORKER GENERAL PEP THERAPY Routine 10/23/2023 1:00 PM FOUNDRY WORKER GENERAL POCT GLUCOSE DEVICE Routine 10/23/2023 12:08 PM FOUNDRY WORKER GENERAL PEP THERAPY Routine 10/23/2023 8:00 AM FOUNDRY WORKER GENERAL POCT GLUCOSE DEVICE Routine 10/23/2023 7:54 AM FOUNDRY WORKER GENERAL XR CHEST 1 VIEW IP Routine 10/23/2023 6:24 AM FOUNDRY WORKER GENERAL EGFR Routine 10/23/2023 1:53 AM FOUNDRY WORKER GENERAL PROTIME-INR Routine 10/23/2023 1:53 AM FOUNDRY WORKER GENERAL CBC WITHOUT DIFFERENTIAL Routine 10/23/2023 1:53 AM FOUNDRY WORKER GENERAL MAGNESIUM Routine 10/23/2023 1:53 AM FOUNDRY WORKER GENERAL RENAL FUNCTION PANEL Routine 10/23/2023 1:53 AM FOUNDRY WORKER GENERAL CONTINUOUS CYCLIC PERITONEAL DIALYSIS (CCPD) Routine 10/23/2023 12:30 AM FOUNDRY WORKER GENERAL POCT GLUCOSE DEVICE Routine 10/22/2023 11:55 PM FOUNDRY WORKER GENERAL PEP THERAPY Routine 10/22/2023 10:00 PM FOUNDRY WORKER GENERAL POCT GLUCOSE DEVICE Routine 10/22/2023 9:12 PM FOUNDRY WORKER GENERAL PEP THERAPY Routine 10/22/2023 6:00 PM FOUNDRY WORKER GENERAL POCT GLUCOSE DEVICE Routine 10/22/2023 5:22 PM FOUNDRY WORKER GENERAL PEP THERAPY Routine 10/22/2023 3:07 PM FOUNDRY WORKER GENERAL PEP THERAPY Routine 10/22/2023 3:07 PM FOUNDRY WORKER GENERAL PEP THERAPY Routine 10/22/2023 3:07 PM FOUNDRY WORKER GENERAL PEP THERAPY Routine 10/22/2023 3:07 PM FOUNDRY WORKER GENERAL POCT GLUCOSE DEVICE Routine 10/22/2023 12:49 PM FOUNDRY WORKER GENERAL POCT GLUCOSE DEVICE Routine 10/22/2023 8:12 AM FOUNDRY WORKER GENERAL XR CHEST 1 VIEW IP Routine 10/22/2023 6:38 AM FOUNDRY WORKER GENERAL EGFR Routine 10/22/2023 12:31 AM FOUNDRY WORKER GENERAL PROTIME-INR Routine 10/22/2023 12:31 AM FOUNDRY WORKER GENERAL CBC WITHOUT DIFFERENTIAL Routine 10/22/2023 12:31 AM FOUNDRY WORKER GENERAL MAGNESIUM Routine 10/22/2023 12:31 AM FOUNDRY WORKER GENERAL RENAL FUNCTION PANEL Routine 10/22/2023 12:31 AM FOUNDRY WORKER GENERAL CONTINUOUS CYCLIC PERITONEAL DIALYSIS (CCPD) Routine 10/22/2023 12:30 AM [employer]OUN[employer] WORKER GENERAL POCT GLUCOSE DEVICE Routine 10/21/2023 9:31 PM [employer]OUN[employer]Y WORKER GENERAL POCT GLUCOSE DEVICE Routine 10/21/2023 5:16 PM [employer]OUNDRY WORKER GENERAL POCT GLUCOSE DEVICE Routine 10/21/2023 12:29 PM [employer] WORKER GENERAL POCT GLUCOSE DEVICE Routine 10/21/2023 8:06 AM [employer]Y WORKER GENERAL XR CHEST 1 VIEW IP Routine 10/21/2023 6:51 AM [employer]OUN[employer]Y WORKER GENERAL ECG 12-LEAD Routine 10/21/2023 4:39 AM [employer]Y WORKER GENERAL EGFR Routine 10/21/2023 1:40 AM [employer] WORKER GENERAL PROTIME-INR Routine 10/21/2023 1:40 AM [employer]OUN[employer]Y WORKER GENERAL CBC WITHOUT DIFFERENTIAL Routine 10/21/2023 1:40 AM [employer]Y WORKER GENERAL MAGNESIUM Routine 10/21/2023 1:40 AM [employer]Y WORKER GENERAL RENAL FUNCTION PANEL Routine 10/21/2023 1:40 AM FOUNDRY WORKER GENERAL CONTINUOUS CYCLIC PERITONEAL DIALYSIS (CCPD) Routine 10/21/2023 12:31 AM FOUNDRY WORKER GENERAL POCT GLUCOSE DEVICE Routine 10/20/2023 9:24 PM FOUN[employer]Y WORKER GENERAL POCT GLUCOSE DEVICE Routine 10/20/2023 5:24 PM FOUNDRY WORKER GENERAL CONTINUOUS CYCLIC PERITONEAL DIALYSIS (CCPD) Routine 10/20/2023 3:51 PM FOUNDRY WORKER GENERAL CRITICAL CARE Routine 10/20/2023 12:45 PM FOUNDRY WORKER GENERAL 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[place] artery of [place] heart with stable angina pectoris (CMS/HCC) (HCC) POCT GLUCOSE DEVICE Routine 10/20/2023 11:47 AM [employer]OUNDRY WORKER GENERAL POCT GLUCOSE DEVICE Routine 10/20/2023 10:09 AM FOUNDRY WORKER GENERAL POCT GLUCOSE DEVICE Routine 10/20/2023 9:15 AM FOUN[employer]Y WORKER GENERAL POCT GLUCOSE DEVICE Routine 10/20/2023 7:23 AM [employer]OUN[employer]Y WORKER GENERAL XR CHEST 1 VIEW IP Routine 10/20/2023 6:37 AM FOUNDRY WORKER GENERAL POCT GLUCOSE DEVICE Routine 10/20/2023 6:12 AM FOUNDRY WORKER GENERAL POCT GLUCOSE DEVICE Routine 10/20/2023 3:57 AM FOUN[employer]Y WORKER GENERAL OXYHEMOGLOBIN, CENTRAL VENOUS Timed 10/20/2023 3:22 AM FOUNDRY WORKER GENERAL APTT STAT 10/20/2023 3:22 AM FOUNDRY WORKER GENERAL POCT GLUCOSE DEVICE Routine 10/20/2023 3:21 AM F[employer]Y WORKER GENERAL POCT GLUCOSE DEVICE Routine 10/20/2023 2:10 AM FOUNDRY WORKER GENERAL POCT GLUCOSE DEVICE Routine 10/20/2023 12:57 AM FOUN[employer]Y WORKER GENERAL OXYHEMOGLOBIN, CENTRAL VENOUS Routine 10/20/2023 12:21 AM FOUN[employer]Y WORKER GENERAL EGFR Routine 10/20/2023 12:21 AM FOUN[employer]Y WORKER GENERAL CALCIUM, IONIZED Routine 10/20/2023 12:21 AM FOUNDRY WORKER GENERAL PROTIME-INR Routine 10/20/2023 12:21 AM FOUNDRY WORKER GENERAL CBC WITHOUT DIFFERENTIAL Routine 10/20/2023 12:21 AM FOUN[employer]Y WORKER GENERAL MAGNESIUM Routine 10/20/2023 12:21 AM FOUNDRY WORKER GENERAL RENAL FUNCTION PANEL Routine 10/20/2023 12:21 AM FOUNDRY WORKER GENERAL POCT GLUCOSE DEVICE Routine 10/20/2023 12:20 AM FOUNDRY WORKER GENERAL POCT GLUCOSE DEVICE Routine 10/19/2023 11:03 PM FOUNDRY WORKER GENERAL POCT GLUCOSE DEVICE Routine 10/19/2023 10:01 PM FOUNDRY WORKER GENERAL APTT STAT 10/19/2023 9:47 PM FOUNDRY WORKER GENERAL POCT GLUCOSE DEVICE Routine 10/19/2023 9:15 PM FOUNDRY WORKER GENERAL POCT GLUCOSE DEVICE Routine 10/19/2023 8:12 PM FOUN[employer]Y WORKER GENERAL POCT GLUCOSE DEVICE Routine 10/19/2023 6:13 PM FOUN[employer]Y WORKER GENERAL POCT GLUCOSE DEVICE Routine 10/19/2023 5:24 PM FOUN[employer]Y WORKER GENERAL XR CHEST 1 VIEW ED Urgent/IP Urgent 10/19/2023 4:29 PM FOUN[employer]Y WORKER GENERAL POCT GLUCOSE DEVICE Routine 10/19/2023 4:25 PM FOUN[employer]Y WORKER GENERAL ECG 12-LEAD STAT 10/19/2023 3:21 PM FOUN[employer]Y WORKER GENERAL XR KUB IP Routine 10/19/2023 2:49 PM FOUNDRY WORKER GENERAL APTT STAT 10/19/2023 2:44 PM FOUN[employer]Y WORKER GENERAL LIPASE Routine 10/19/2023 2:44 PM FOUNDRY WORKER GENERAL AMYLASE Routine 10/19/2023 2:44 PM FOUN[employer]Y WORKER GENERAL HEPATIC FUNCTION PANEL Routine 10/19/2023 2:44 PM FOUN[employer]Y WORKER GENERAL POCT GLUCOSE DEVICE Routine 10/19/2023 2:40 PM FOUN[employer]Y WORKER GENERAL POCT GLUCOSE DEVICE Routine 10/19/2023 12:25 PM FOUN[employer] WORKER GENERAL POCT GLUCOSE DEVICE Routine 10/19/2023 11:12 AM FOUNDRY WORKER GENERAL POCT GLUCOSE DEVICE Routine 10/19/2023 10:54 AM FOUN[employer]Y WORKER GENERAL POCT GLUCOSE DEVICE Routine 10/19/2023 9:04 AM FOUN[employer]Y WORKER GENERAL OXYHEMOGLOBIN, CENTRAL VENOUS STAT 10/19/2023 8:58 AM FOUN[employer]Y WORKER GENERAL APTT STAT 10/19/2023 8:58 AM FOUN[employer]Y WORKER GENERAL POCT GLUCOSE DEVICE Routine 10/19/2023 7:19 AM F[employer]Y WORKER GENERAL OXYHEMOGLOBIN, CENTRAL VENOUS STAT 10/19/2023 7:09 AM FOUNDRY WORKER GENERAL LACTATE STAT 10/19/2023 7:09 AM FOUNDRY WORKER GENERAL CRITICAL CARE Routine 10/19/2023 6:57 AM FOUNDRY WORKER GENERAL CAD in [place] artery POCT GLUCOSE DEVICE Routine 10/19/2023 6:57 AM FOUNDRY WORKER GENERAL XR CHEST 1 VIEW IP Routine 10/19/2023 6:27 AM FOUNDRY WORKER GENERAL POCT GLUCOSE DEVICE Routine 10/19/2023 6:06 AM FOUN[employer]Y WORKER GENERAL POCT GLUCOSE DEVICE Routine 10/19/2023 5:10 AM FOUNDRY WORKER GENERAL APTT STAT 10/19/2023 4:14 AM FOUNDRY WORKER GENERAL POCT GLUCOSE DEVICE Routine 10/19/2023 4:03 AM F[employer]Y WORKER GENERAL POCT GLUCOSE DEVICE Routine 10/19/2023 2:56 AM FOUNDRY WORKER GENERAL OXYHEMOGLOBIN, CENTRAL VENOUS Routine 10/19/2023 2:11 AM FOUN[employer]Y WORKER GENERAL EGFR Routine 10/19/2023 2:11 AM FOUN[employer]Y WORKER GENERAL CALCIUM, IONIZED Routine 10/19/2023 2:11 AM FOUN[employer]Y WORKER GENERAL PROTIME-INR Routine 10/19/2023 2:11 AM FOUN[employer]Y WORKER GENERAL CBC WITHOUT DIFFERENTIAL Routine 10/19/2023 2:11 AM FOUN[employer]Y WORKER GENERAL MAGNESIUM Routine 10/19/2023 2:11 AM FOUN[employer]Y WORKER GENERAL BLOOD GAS, ARTERIAL Routine 10/19/2023 2:11 AM FOUNDRY WORKER GENERAL RENAL FUNCTION PANEL Routine 10/19/2023 2:11 AM FOUNDRY WORKER GENERAL POCT GLUCOSE DEVICE Routine 10/19/2023 2:07 AM FOUNDRY WORKER GENERAL CONTINUOUS CYCLIC PERITONEAL DIALYSIS (CCPD) Routine 10/19/2023 12:31 AM FOUNDRY WORKER GENERAL POCT GLUCOSE DEVICE Routine 10/19/2023 12:01 AM FOUNDRY WORKER GENERAL POCT GLUCOSE DEVICE Routine 10/18/2023 11:03 PM FOUNDRY WORKER GENERAL POCT GLUCOSE DEVICE Routine 10/18/2023 10:11 PM FOUNDRY WORKER GENERAL APTT STAT 10/18/2023 9:21 PM FOUNDRY WORKER GENERAL POCT GLUCOSE DEVICE Routine 10/18/2023 9:19 PM FOUNDRY WORKER GENERAL POCT GLUCOSE DEVICE Routine 10/18/2023 8:37 PM FOUN[employer]Y WORKER GENERAL BLOOD GAS, ARTERIAL STAT 10/18/2023 8:34 PM FOUNDRY WORKER GENERAL CRITICAL CARE Routine 10/18/2023 6:49 PM FOUNDRY WORKER GENERAL CAD in [place] artery POCT GLUCOSE DEVICE Routine 10/18/2023 6:38 PM F[employer]Y WORKER GENERAL POCT GLUCOSE DEVICE Routine 10/18/2023 5:45 PM FOUN[employer]Y WORKER GENERAL XR KUB IP Routine 10/18/2023 5:42 PM FOUN[employer]Y WORKER GENERAL POCT GLUCOSE DEVICE Routine 10/18/2023 4:47 PM FOUN[employer]Y WORKER GENERAL APTT Timed 10/18/2023 2:55 PM F[employer]Y WORKER GENERAL POCT GLUCOSE DEVICE Routine 10/18/2023 2:52 PM F[employer]Y WORKER GENERAL POCT GLUCOSE DEVICE Routine 10/18/2023 1:53 PM F[employer]Y WORKER GENERAL POCT GLUCOSE DEVICE Routine 10/18/2023 12:48 PM FOUNDRY WORKER GENERAL POCT GLUCOSE DEVICE Routine 10/18/2023 12:00 PM FOUN[employer]Y WORKER GENERAL POCT GLUCOSE DEVICE Routine 10/18/2023 10:57 AM F[employer]Y WORKER GENERAL POCT GLUCOSE DEVICE Routine 10/18/2023 9:52 AM FOUN[employer]Y WORKER GENERAL POCT GLUCOSE DEVICE Routine 10/18/2023 8:46 AM FOUNDRY WORKER GENERAL POCT GLUCOSE DEVICE Routine 10/18/2023 7:58 AM FOUNDRY WORKER GENERAL CRITICAL CARE Routine 10/18/2023 7:27 AM FOUNDRY WORKER GENERAL CAD in [place] artery POCT GLUCOSE DEVICE Routine 10/18/2023 7:02 AM F[employer]Y WORKER GENERAL POCT GLUCOSE DEVICE Routine 10/18/2023 6:04 AM F[employer]DRY WORKER GENERAL XR CHEST 1 VIEW IP Routine 10/18/2023 5:38 AM F[employer]Y WORKER GENERAL POCT GLUCOSE DEVICE Routine 10/18/2023 5:04 AM F[employer]Y WORKER GENERAL POCT GLUCOSE DEVICE Routine 10/18/2023 4:03 AM F[employer]Y WORKER GENERAL POCT GLUCOSE DEVICE Routine 10/18/2023 3:04 AM F[employer]Y WORKER GENERAL POCT GLUCOSE DEVICE Routine 10/18/2023 1:57 AM F[employer]Y WORKER GENERAL EGFR Routine 10/18/2023 1:54 AM F[employer]DRY WORKER GENERAL CALCIUM, IONIZED Routine 10/18/2023 1:54 AM FOUNDRY WORKER GENERAL PROTIME-INR Routine 10/18/2023 1:54 AM FOUNDRY WORKER GENERAL FIBRINOGEN Routine 10/18/2023 1:54 AM FOUNDRY WORKER GENERAL CBC WITHOUT DIFFERENTIAL Routine 10/18/2023 1:54 AM F[employer]Y WORKER GENERAL MAGNESIUM Routine 10/18/2023 1:54 AM F[employer]Y WORKER GENERAL BLOOD GAS, ARTERIAL STAT 10/18/2023 1:54 AM F[employer]DRY WORKER GENERAL RENAL FUNCTION PANEL Routine 10/18/2023 1:54 AM FOUNDRY WORKER GENERAL POCT GLUCOSE DEVICE Routine 10/18/2023 12:57 AM FOUNDRY WORKER GENERAL CONTINUOUS CYCLIC PERITONEAL DIALYSIS (CCPD) Routine 10/18/2023 12:31 AM FOUNDRY WORKER GENERAL POCT GLUCOSE DEVICE Routine 10/18/2023 12:04 AM F[employer]DRY WORKER GENERAL POCT GLUCOSE DEVICE Routine 10/17/2023 11:00 PM F[employer]Y WORKER GENERAL BLOOD GAS, ARTERIAL STAT 10/17/2023 10:56 PM FOUNDRY WORKER GENERAL LACTATE STAT 10/17/2023 10:55 PM FOUNDRY WORKER GENERAL DIFFERENTIAL AUTO STAT 10/17/2023 10:55 PM FOUNDRY WORKER GENERAL CALCIUM, IONIZED STAT 10/17/2023 10:55 PM FOUNDRY WORKER GENERAL CBC WITH AUTO DIFFERENTIAL STAT 10/17/2023 10:55 PM F[employer]DRY WORKER GENERAL POCT GLUCOSE DEVICE Routine 10/17/2023 10:19 PM F[employer]Y WORKER GENERAL POCT GLUCOSE DEVICE Routine 10/17/2023 9:00 PM FOUNDRY WORKER GENERAL POCT GLUCOSE DEVICE Routine 10/17/2023 8:07 PM F[employer]Y WORKER GENERAL POCT GLUCOSE DEVICE Routine 10/17/2023 7:18 PM F[employer]Y WORKER GENERAL TRANSFUSE RED BLOOD CELLS Timed 10/17/2023 7:13 PM F[employer]Y WORKER GENERAL CRITICAL CARE Routine 10/17/2023 6:42 PM FOUN[employer]Y WORKER GENERAL CAD in [place] artery PREPARE RBC STAT 10/17/2023 6:34 PM FOUNDRY WORKER GENERAL POTASSIUM LEVEL STAT 10/17/2023 6:14 PM FOUN[employer]Y WORKER GENERAL APTT STAT 10/17/2023 6:12 PM FOUN[employer]Y WORKER GENERAL PROTIME-INR STAT 10/17/2023 6:12 PM FOUNDRY WORKER GENERAL FIBRINOGEN STAT 10/17/2023 6:12 PM FOUNDRY WORKER GENERAL CBC WITHOUT DIFFERENTIAL STAT 10/17/2023 6:12 PM FOUNDRY WORKER GENERAL BLOOD GAS, ARTERIAL STAT 10/17/2023 6:12 PM FOUNDRY WORKER GENERAL POCT GLUCOSE DEVICE Routine 10/17/2023 6:11 PM F[employer]DRY WORKER GENERAL TRANSFUSE PLASMA Timed 10/17/2023 5:25 PM F[employer]Y WORKER GENERAL PREPARE PLASMA STAT 10/17/2023 5:09 PM FOUN[employer]Y WORKER GENERAL POCT GLUCOSE DEVICE Routine 10/17/2023 4:50 PM FOUNDRY WORKER GENERAL APTT STAT 10/17/2023 4:32 PM FOUNDRY WORKER GENERAL PROTIME-INR STAT 10/17/2023 4:32 PM F[employer]Y WORKER GENERAL FIBRINOGEN STAT 10/17/2023 4:32 PM FOUN[employer]Y WORKER GENERAL CBC WITHOUT DIFFERENTIAL Routine 10/17/2023 4:32 PM F[employer]Y WORKER GENERAL BLOOD GAS, ARTERIAL STAT 10/17/2023 4:32 PM FOUNDRY WORKER GENERAL POCT GLUCOSE DEVICE Routine 10/17/2023 3:51 PM FOUN[employer]Y WORKER GENERAL TRANSFUSE PLASMA Timed 10/17/2023 3:43 PM F[employer]Y WORKER GENERAL TRANSFUSE RED BLOOD CELLS Timed 10/17/2023 3:38 PM F[employer]Y WORKER GENERAL PREPARE PLASMA STAT 10/17/2023 3:32 PM FOUN[employer]Y WORKER GENERAL PREPARE RBC STAT 10/17/2023 3:32 PM FOUNDRY WORKER GENERAL POCT GLUCOSE DEVICE Routine 10/17/2023 2:34 PM F[employer]Y WORKER GENERAL XR CHEST 1 VIEW ED Urgent/IP Urgent 10/17/2023 1:49 PM FOUN[employer]Y WORKER GENERAL CRITICAL CARE Routine 10/17/2023 1:44 PM FOUN[employer]Y WORKER GENERAL LACTATE STAT 10/17/2023 1:27 PM FOUNDRY WORKER GENERAL EGFR STAT 10/17/2023 1:27 PM FOUN[employer]Y WORKER GENERAL CALCIUM, IONIZED STAT 10/17/2023 1:27 PM FOUN[employer]Y WORKER GENERAL APTT STAT 10/17/2023 1:27 PM FOUNDRY WORKER GENERAL PROTIME-INR STAT 10/17/2023 1:27 PM FOUNDRY WORKER GENERAL FIBRINOGEN STAT 10/17/2023 1:27 PM FOUNDRY WORKER GENERAL CBC WITHOUT DIFFERENTIAL STAT 10/17/2023 1:27 PM FOUNDRY WORKER GENERAL PHOSPHORUS STAT 10/17/2023 1:27 PM FOUNDRY WORKER GENERAL MAGNESIUM STAT 10/17/2023 1:27 PM FOUN[employer]Y WORKER GENERAL BLOOD GAS, ARTERIAL STAT 10/17/2023 1:27 PM FOUNDRY WORKER GENERAL BASIC METABOLIC PANEL STAT 10/17/2023 1:27 PM FOUNDRY WORKER GENERAL POCT GLUCOSE DEVICE Routine 10/17/2023 1:25 PM FOUNDRY WORKER GENERAL POCT ACTIVATED CLOTTING TIME, HIGH RANGE Routine 10/17/2023 12:26 PM FOUNDRY WORKER GENERAL POC BLOOD GAS AND CHEMISTRIES, ARTERIAL Routine 10/17/2023 12:26 PM FOUNDRY WORKER GENERAL TRANSFUSE PLATELETS Timed 10/17/2023 12:24 PM FOUNDRY WORKER GENERAL PREPARE RBC STAT 10/17/2023 12:11 PM FOUNDRY WORKER GENERAL TRANSFUSE RED BLOOD CELLS Timed 10/17/2023 12:09 PM FOUNDRY WORKER GENERAL TRANSFUSE CRYOPRECIPITATE (POOLED UNITS) Timed 10/17/2023 12:05 PM FOUNDRY WORKER GENERAL TRANSFUSE CRYOPRECIPITATE (POOLED UNITS) Timed 10/17/2023 12:04 PM FOUNDRY WORKER GENERAL TRANSFUSE PLASMA Timed 10/17/2023 12:03 PM FOUNDRY WORKER GENERAL TRANSFUSE PLASMA Timed 10/17/2023 12:03 PM FOUNDRY WORKER GENERAL POC BLOOD GAS AND CHEMISTRIES, ARTERIAL Routine 10/17/2023 11:51 AM FOUNDRY WORKER GENERAL POCT ACTIVATED CLOTTING TIME, HIGH RANGE Routine 10/17/2023 11:50 AM FOUNDRY WORKER GENERAL POCT ACTIVATED CLOTTING TIME, HIGH RANGE Routine 10/17/2023 11:22 AM FOUNDRY WORKER GENERAL POC BLOOD GAS AND CHEMISTRIES, ARTERIAL Routine 10/17/2023 11:20 AM FOUNDRY WORKER GENERAL POCT ACTIVATED CLOTTING TIME, HIGH RANGE Routine 10/17/2023 11:05 AM FOUNDRY WORKER GENERAL POCT ACTIVATED CLOTTING TIME, HIGH RANGE Routine 10/17/2023 10:53 AM FOUNDRY WORKER GENERAL POCT ACTIVATED CLOTTING TIME, HIGH RANGE Routine 10/17/2023 10:38 AM FOUNDRY WORKER GENERAL POC BLOOD GAS AND CHEMISTRIES, ARTERIAL Routine 10/17/2023 10:38 AM FOUNDRY WORKER GENERAL POCT ACTIVATED CLOTTING TIME, HIGH RANGE Routine 10/17/2023 10:24 AM FOUNDRY WORKER GENERAL POC BLOOD GAS AND CHEMISTRIES, VENOUS Routine 10/17/2023 10:21 AM FOUNDRY WORKER GENERAL POCT ACTIVATED CLOTTING TIME, HIGH RANGE Routine 10/17/2023 10:12 AM FOUNDRY WORKER GENERAL POC BLOOD GAS AND CHEMISTRIES, ARTERIAL Routine 10/17/2023 10:11 AM FOUNDRY WORKER GENERAL POC BLOOD GAS AND CHEMISTRIES, ARTERIAL Routine 10/17/2023 9:47 AM FOUNDRY WORKER GENERAL POCT ACTIVATED CLOTTING TIME, HIGH RANGE Routine 10/17/2023 9:44 AM FOUNDRY WORKER GENERAL PREPARE PLATELETS STAT 10/17/2023 9:12 AM FOUNDRY WORKER GENERAL PREPARE PLASMA STAT 10/17/2023 9:12 AM FOUNDRY WORKER GENERAL PREPARE CRYOPRECIPITATE (POOLED UNITS) STAT 10/17/2023 9:12 AM FOUNDRY WORKER GENERAL POCT ACTIVATED CLOTTING TIME, HIGH RANGE Routine 10/17/2023 8:19 AM FOUNDRY WORKER GENERAL REPLACEMENT AORTIC VALVE 10/17/2023 8:03 AM FOUNDRY WORKER GENERAL Aortic valve stenosis, etiology of cardiac valve disease unspecified Coronary arteriosclerosis in [place] artery CORONARY ARTERY BYPASS GRAFT 10/17/2023 8:03 AM FOUNDRY WORKER GENERAL Aortic valve stenosis, etiology of cardiac valve disease unspecified Coronary arteriosclerosis in [place] artery POCT GLUCOSE DEVICE Routine 10/17/2023 7:47 AM FOUNDRY WORKER GENERAL POCT GLUCOSE DEVICE Routine 10/17/2023 5:50 AM FOUNDRY WORKER GENERAL US CAROTIDS DUPLEX BILATERAL IP Routine 10/17/2023 5:10 AM FOUNDRY WORKER GENERAL POCT GLUCOSE DEVICE Routine 10/17/2023 2:29 AM FOUNDRY WORKER GENERAL POCT GLUCOSE DEVICE Routine 10/17/2023 12:51 AM FOUNDRY WORKER GENERAL CONTINUOUS CYCLIC PERITONEAL DIALYSIS (CCPD) Routine 10/17/2023 12:31 AM FOUNDRY WORKER GENERAL DIFFERENTIAL AUTO Routine 10/17/2023 12:29 AM FOUNDRY WORKER GENERAL CBC WITH AUTO DIFFERENTIAL Routine 10/17/2023 12:29 AM FOUNDRY WORKER GENERAL APTT Routine 10/17/2023 12:29 AM FOUNDRY WORKER GENERAL TYPE AND SCREEN STAT 10/16/2023 7:51 PM FOUNDRY WORKER GENERAL POCT GLUCOSE DEVICE Routine 10/16/2023 7:49 PM F[employer]DRY WORKER GENERAL POCT GLUCOSE DEVICE Routine 10/16/2023 5:35 PM FOUNDRY WORKER GENERAL TRANSTHORACIC ECHO (TTE) COMPLETE W DOPPLER/CF W CONTRAST Routine 10/16/2023 4:47 PM FOUNDRY WORKER GENERAL APTT Routine 10/16/2023 3:50 PM FOUNDRY WORKER GENERAL LIPID PANEL Routine 10/16/2023 3:44 PM FOUNDRY WORKER GENERAL CONTINUOUS CYCLIC PERITONEAL DIALYSIS (CCPD) Routine 10/16/2023 3:33 PM FOUNDRY WORKER GENERAL HEMOGLOBIN A1C Routine 10/16/2023 3:27 PM FOUNDRY WORKER GENERAL XR CHEST PA LATERAL 2 VIEWS ED Urgent/IP Urgent 10/16/2023 3:12 PM FOUNDRY WORKER GENERAL ECG 12-LEAD Routine 10/16/2023 2:17 PM F[employer]DRY WORKER GENERAL PREPARE RBC STAT 10/16/2023 2:04 PM FOUNDRY WORKER GENERAL POCT GLUCOSE DEVICE Routine 10/16/2023 12:22 PM FOUNDRY WORKER GENERAL POCT GLUCOSE DEVICE Routine 10/16/2023 8:11 AM FOUNDRY WORKER GENERAL POCT GLUCOSE DEVICE Routine 10/16/2023 4:48 AM F[employer]DRY WORKER GENERAL POCT GLUCOSE DEVICE Routine 10/16/2023 12:37 AM F[employer]DRY WORKER GENERAL DIFFERENTIAL AUTO Routine 10/16/2023 12:31 AM F[employer]Y WORKER GENERAL CBC WITH AUTO DIFFERENTIAL Routine 10/16/2023 12:31 AM FOUNDRY WORKER GENERAL APTT Routine 10/16/2023 12:31 AM FOUNDRY WORKER GENERAL B CHECK SAMPLE STAT 10/16/2023 12:27 AM F[employer]DRY WORKER GENERAL POCT GLUCOSE DEVICE Routine 10/15/2023 11:20 PM FOUNDRY WORKER GENERAL POCT GLUCOSE DEVICE Routine 10/15/2023 11:01 PM FOUNDRY WORKER GENERAL POCT GLUCOSE DEVICE Routine 10/15/2023 10:45 PM FOUNDRY WORKER GENERAL POCT GLUCOSE DEVICE Routine 10/15/2023 10:26 PM FOUNDRY WORKER GENERAL POCT GLUCOSE DEVICE Routine 10/15/2023 8:12 PM FOUNDRY WORKER GENERAL POCT GLUCOSE DEVICE Routine 10/15/2023 5:10 PM F[employer]DRY WORKER GENERAL POCT GLUCOSE DEVICE Routine 10/15/2023 12:13 PM FOUNDRY WORKER GENERAL APTT Routine 10/15/2023 11:25 AM FOUNDRY WORKER GENERAL CT CHEST WO CONTRAST IP Routine 10/15/2023 11:00 AM FOUNDRY WORKER GENERAL POCT GLUCOSE DEVICE Routine 10/15/2023 7:56 AM FOUNDRY WORKER GENERAL POCT GLUCOSE DEVICE Routine 10/15/2023 5:34 AM FOUNDRY WORKER GENERAL POCT GLUCOSE DEVICE Routine 10/15/2023 4:35 AM FOUNDRY WORKER GENERAL APTT STAT 10/15/2023 4:27 AM F[employer]DRY WORKER GENERAL POCT GLUCOSE DEVICE Routine 10/15/2023 1:30 AM FOUNDRY WORKER GENERAL EGFR Routine 10/15/2023 1:06 AM FOUNDRY WORKER GENERAL DIFFERENTIAL AUTO Routine 10/15/2023 1:06 AM FOUNDRY WORKER GENERAL IRON PROFILE W/ IBC Routine 10/15/2023 1:06 AM FOUNDRY WORKER GENERAL CBC WITH AUTO DIFFERENTIAL Routine 10/15/2023 1:06 AM FOUNDRY WORKER GENERAL APTT Routine 10/15/2023 1:06 AM FOUNDRY WORKER GENERAL FERRITIN Routine 10/15/2023 1:06 AM FOUNDRY WORKER GENERAL RENAL FUNCTION PANEL Routine 10/15/2023 1:06 AM FOUNDRY WORKER GENERAL CONTINUOUS CYCLIC PERITONEAL DIALYSIS (CCPD) Routine 10/15/2023 12:31 AM FOUNDRY WORKER GENERAL APTT Timed 10/14/2023 8:41 PM FOUNDRY WORKER GENERAL POCT GLUCOSE DEVICE Routine 10/14/2023 8:24 PM FOUNDRY WORKER GENERAL POCT GLUCOSE DEVICE Routine 10/14/2023 5:28 PM FOUNDRY WORKER GENERAL CONTINUOUS CYCLIC PERITONEAL DIALYSIS (CCPD) Routine 10/14/2023 3:44 PM FOUNDRY WORKER GENERAL APTT Timed 10/14/2023 2:39 PM FOUNDRY WORKER GENERAL POCT GLUCOSE DEVICE Routine 10/14/2023 12:15 PM FOUNDRY WORKER GENERAL POCT GLUCOSE DEVICE Routine 10/14/2023 11:06 AM FOUNDRY WORKER GENERAL POCT GLUCOSE DEVICE Routine 10/14/2023 8:34 AM FOUNDRY WORKER GENERAL POCT GLUCOSE DEVICE Routine 10/14/2023 5:56 AM FOUNDRY WORKER GENERAL EGFR STAT 10/14/2023 5:53 AM FOUNDRY WORKER GENERAL APTT STAT 10/14/2023 5:53 AM FOUNDRY WORKER GENERAL BASIC METABOLIC PANEL STAT 10/14/2023 5:53 AM FOUNDRY WORKER GENERAL POCT GLUCOSE DEVICE Routine 10/14/2023 3:58 AM FOUNDRY WORKER GENERAL POCT GLUCOSE DEVICE Routine 10/14/2023 3:04 AM FOUNDRY WORKER GENERAL POCT GLUCOSE DEVICE Routine 10/14/2023 2:05 AM FOUNDRY WORKER GENERAL EGFR STAT 10/14/2023 1:04 AM FOUNDRY WORKER GENERAL DIFFERENTIAL AUTO STAT 10/14/2023 1:04 AM FOUNDRY WORKER GENERAL CBC WITH AUTO DIFFERENTIAL STAT 10/14/2023 1:04 AM FOUNDRY WORKER GENERAL APTT STAT 10/14/2023 1:04 AM FOUNDRY WORKER GENERAL PROTIME-INR STAT 10/14/2023 1:04 AM FOUNDRY WORKER GENERAL COMPREHENSIVE METABOLIC PANEL STAT 10/14/2023 1:04 AM FOUNDRY WORKER GENERAL POCT GLUCOSE DEVICE Routine 10/13/2023 11:25 PM FOUNDRY WORKER GENERAL documented in this encounter Results * (ABNORMAL) [...] ORDERABLES - APRIL CE Final Result [facility] [address] [place] [address] * (ABNORMAL) Protime-INR (11/03/2023 11:43 AM CDT) PT 21.9(H) 10.3 - 13.7 sec INR 1.92(H) 0.90 - 1.20 [facility] Comment: Interpretive data Oral anticoagulant [...] ORDERABLES Final R esult Performing Organization Address [facility] Co de Phone Number [facility] [address] Department [place] [address] * (ABNORMAL) aPTT (11/03/2023 11:43 AM CDT) [...] BLOOD ORDERABLES Final Result Performing Organization Address [facility] Co de Phone Number [facility]3] [address] [place] [address] * (ABNORMAL) POCT glucose (11/03/2023 11:38 AM [...] APRIL CE Final Result Performing Organization Address [facility] Co de Phone Number [facility] [address] Department [place] [address] * (ABNORMAL) POCT glucose (11/03/2023 8:05 AM [...] ORDERABLES - APRIL CE Final Result [facility] [address] Department [place] [address] * eGFR (11/03/2023 4:41 AM CDT) Pathologist [facility] eGFR 7 mL/min/1. 73 m2 Comment: Interpretive [...] CDT 11/03/2023 4:41 AM CDT Byron Olvera [employer] LAB BLOOD ORDERABLES Fi nal Result Performing Organization Address [facility] Co de Phone Number [facility]3] [address] [facility] [employer] [place], [place] [id number] * (ABNORMAL) aPTT (11/03/2023 4:41 AM CDT) [...] BLOOD ORDERABLES Final Result Performing Organization Address [facility] Co de Phone Number [facility]3] [address] [facility] [employer] [place] [address] * (ABNORMAL) Protime-INR (11/03/2023 4:41 AM CDT) PT 19.8(H) 10.3 - 13.7 sec INR 1.74(H) 0.90 - 1.20 [facility]3] Comment: Interpretive data Oral anticoagulant therapeutic ranges: Venous thromboembolism prophylaxis or treatment: 2.0-3.0 CARDIOLOGY Standard range: 2.0-3.0 High-intensity range: 2.5-3.5 Refer to indication-specific guidelines for appropriate target ranges for prosthetic heart valve replacement. Current interpretive data was last revised on 2019. Blood 11/03/2023 4:41 AM CDT 11/03/2023 4:41 AM CDT Byron Olvera NP LAB BLOOD ORDERABLES Fi nal Result Performing Organization Address City/[facility]/ZIP Co de Phone Number [facility]3] [address] Department [place] [address] * Magnesium (11/03/2023 4:41 AM CDT) [facility] Magnesium 2.4 1.4 - 2.5 mg/dL Blood 11/03/2023 4:41 AM CDT 11/03/2023 4:41 AM CDT Byron Rudi Wade MEJIA LAB BLOOD ORDERABLES Fi nal Result Performing Organization Address [facility] Co de Phone Number [facility])[3] [address] [place] [employer] [place] [address] * (ABNORMAL) Renal function panel (11/03/2023 4:41 AM CDT) [facility] Sodium 132(L) 135 - 145 mmol/L Potassium, pl 3.7 3.3 - 4.9 mmol/L [facility]3] Chloride 92(L) 97 - 110 mmol/L [facility]3] CO2 27 22 - 32 mmol/L [facility]3] Anion gap 13 2 - 15 mmol/L [facility]3] BUN 79(H) 6 - 25 mg/dL [facility]3] Creatinine 8.23(H) 0.80 - 1.30 mg/dL [facility]3] Glucose 252(H) 70 - 199 mg/dL [facility]3] Comment: Interpretive Data Fasting glucose >/= 126 [...] 2022. Calcium 8.9 8.5 - 10.3 mg/dL [facility]3] Phosphorus, pl 4.2 2.3 - 4.5 mg/dL [facility]3] Albumin 2.9(L) 3.5 - 5.0 g/dL [facility]3] Blood 11/03/2023 4:41 AM CDT 11/03/2023 4:41 AM CDT Byron Olvera LOAN BROKER LAB BLOOD ORDERABLES Fi nal Result Performing Organization Address [facility] Co de Phone Number [facility]3] [address] [employer] [place], [place] [phone] * (ABNORMAL) CBC without differential (11/03/2023 4:41 AM CDT) [facility] WBC 4.8 3.8 - 9.9 K/cumm Hgb 7.6(L) 13.0 - 17.5 g/dL [facility]3] Hct 24.4(L) 38.9 - 50.3 % [facility]3] Plt 389 150 - 400 K/cumm [facility]3] MPV 9.2 9.1 - 12.3 fL [facility]3] RBC 2.61(L) 4.30 - 5.80 M/cumm [facility]3] MCV 93.5 81.3 - 96.4 fL [facility]3] MCH 29.1 27.1 - 33.3 pg [facility]3] MCHC 31.1(L) 32.3 - 35.7 g/dL [facility]3] RDW CV 14.6 11.1 - 14.9 % [facility]3] RDW SD 50.1(H) 35.7 - 48.1 fL [facility]3] NRBC abs 0.00 0.00 - 0.01 K/cumm [facility]3] Blood 11/03/2023 4:41 AM CDT 11/03/2023 4:41 AM CDT Byron Olvera NP LAB BLOOD ORDERABLES Fi nal Result Performing Organization Address City/[facility]/ZIP Co de Phone Number [facility]3] [address] Department [employer] [place], [place] [phone] * aPTT (11/02/2023 8:38 PM CDT) aPTT [...] ORDERABLES Fin al Result Performing Organization Address [facility] Co de Phone Number [facility] [address] [facility] [employer] [place], [place] [phone] * (ABNORMAL) POCT glucose (11/02/2023 8:22 PM CDT) Pathologist [facility] Glucose, POC 170(H) 70 - 140 mg/dL Comment: For Glucose values <35 mg/dl when Hematocrit is >60 mg/dl,the test may not accurately detect significant hypoglycemia,and testing in the Laboratory should be considered if clinically indicated. Blood 11/02/2023 8:22 PM CDT 11/02/2023 8:22 PM CDT Jaqueline Valero MD LAB POCT ORDERABLES - APRIL CE Final Result Performing Organization Address [facility] Co de Phone Number [facility] [address] [place] [address] * (ABNORMAL) POCT glucose (11/02/2023 5:22 PM [...] APRIL CE Final Result Performing Organization Address City/[facility] Co de Phone Number [facility] [address] Department [place] [address] * aPTT (11/02/2023 1:17 PM CDT) aPTT 36 28 - 38 sec Comment: Interpretive Data Heparin therapeutic range: 66.0 - 100.0 seconds. Range based on correlation with therapeutic heparin activity range of 0.3 - 0.7 Units/mL. Current interpretive data was last revised on 2023. Blood 11/02/2023 1:17 PM CDT 11/02/2023 1:33 PM CDT Narrative [facility] - 11/02/2023 1:50 PM CDT Baseline prior to heparin initiation Nona GRACE LAB BLOOD ORDERABLES Fin al Result Performing Organization Address [facility] Co de Phone Number [facility]3] [address] Department [employer] [place], [place] [phone] * (ABNORMAL) POCT glucose (11/02/2023 12:27 PM [...] APRIL CE Final Result Performing Organization Address City/[facility] Co de Phone Number [facility] [address] Department [employer] [place], [place] [phone] * (ABNORMAL) POCT glucose (11/02/2023 8:15 AM [...] ORDERABLES - APRIL CE Final Result [facility] [address] [place] [address] * eGFR (11/02/2023 2:16 AM CDT) Pathologist [facility] eGFR 7 mL/min/1. 73 m2 Comment: Interpretive [...] CDT 11/02/2023 2:37 AM CDT Byron Olvera LOAN BROKER LAB BLOOD ORDERABLES Fi nal Result Performing Organization Address [facility] Co de Phone Number [facility]3] [address] [facility] [place] [address] * (ABNORMAL) Protime-INR (11/02/2023 2:16 AM CDT) PT 19.1(H) 10.3 - 13.7 sec INR 1.68(H) 0.90 - 1.20 [facility] Comment: Interpretive data Oral anticoagulant therapeutic ranges: Venous thromboembolism prophylaxis or treatment: 2.0-3.0 CARDIOLOGY Standard range: 2.0-3.0 High-intensity range: 2.5-3.5 Refer to indication-specific guidelines for appropriate target ranges for prosthetic heart valve replacement. Current interpretive data was last revised on 2019. Blood 11/02/2023 2:16 AM CDT 11/02/2023 2:37 AM CDT Byron Olvera LOAN BROKER LAB BLOOD ORDERABLES Fi nal Result Performing Organization Address [facility] Co de Phone Number [facility]3] [address] [facility] [place] [address] * Magnesium (11/02/2023 2:16 AM CDT) Magnesium 2.4 1.4 - 2.5 mg/dL Blood 11/02/2023 2:16 AM CDT 11/02/2023 2:37 AM CDT Byron Olvera LO[employer] BR[employer]ER LAB BLOOD ORDERABLES Fi nal Result Performing Organization Address City/[facility] Co de Phone Number [facility]3] [address] [facility] [place] [address] * (ABNORMAL) Renal function panel (11/02/2023 2:16 AM CDT) Sodium 128(L) 135 - 145 mmol/L Potassium, pl 3.9 3.3 - 4.9 mmol/L [facility]3] Chloride 89(L) 97 - 110 mmol/L [facility]3] CO2 25 22 - 32 mmol/L [facility]3] Anion gap 14 2 - 15 mmol/L [facility]3] BUN 86(H) 6 - 25 mg/dL [facility]3] Creatinine 8.74(H) 0.80 - 1.30 mg/dL [facility]3] Glucose 353(H) 70 - 199 mg/dL [facility]3] Comment: Interpretive Data Fasting glucose >/= 126 [...] 2022. Calcium 9.3 8.5 - 10.3 mg/dL [facility]3] Phosphorus, pl 3.7 2.3 - 4.5 mg/dL [facility]3] Albumin 2.7(L) 3.5 - 5.0 g/dL [facility]3] Blood 11/02/2023 2:16 AM CDT 11/02/2023 2:37 AM CDT us Byron Olvera NP LAB BLOOD ORDERABLES Fi nal Result [facility]3] [address] [place] [address] * (ABNORMAL) CBC without differential (11/02/2023 2:16 AM CDT) [facility] WBC 5.0 3.8 - 9.9 K/cumm Hgb 7.5(L) 13.0 - 17.5 g/dL [facility]3] Hct 24.5(L) 38.9 - 50.3 % [facility]3] Plt 391 150 - 400 K/cumm [facility]3] MPV 9.3 9.1 - 12.3 fL [facility]3] RBC 2.60(L) 4.30 - 5.80 M/cumm [facility]3] MCV 94.2 81.3 - 96.4 fL [facility]3] MCH 28.8 27.1 - 33.3 pg [facility]3] MCHC 30.6(L) 32.3 - 35.7 g/dL [facility]3] RDW CV 14.6 11.1 - 14.9 % [facility]3] RDW SD 50.4(H) 35.7 - 48.1 fL [facility]3] NRBC abs 0.00 0.00 - 0.01 K/cumm [facility]3] Blood 11/02/2023 2:16 AM CDT 11/02/2023 2:37 AM CDT us Byron Olvera NP LAB BLOOD ORDERABLES Fi nal Result Performing Organization Address City/[facility]/ZIP Co de Phone Number [facility]3] [address] [place] [address] * (ABNORMAL) POCT glucose (11/02/2023 2:06 AM CDT) [facility] Glucose, POC 350(H) 70 - 140 mg/dL Comment: For Glucose values <35 mg/dl when Hematocrit is >60 mg/dl,the test may not accurately detect significant hypoglycemia,and testing in the Laboratory should be considered if clinically indicated. Blood 11/02/2023 2:06 AM CDT 11/02/2023 2:06 AM CDT Jaqueline Valero MD LAB POCT ORDERABLES - APRIL CE Final Result Performing Organization Address City/[facility]/ZIP Co de Phone Number [facility]3] [address] [place] [place] [address] * (ABNORMAL) POCT glucose (11/01/2023 8:25 PM [...] APRIL CE Final Result Performing Organization Address [facility] de Phone Number [facility] [address] [facility] [employer] [place], [place] [phone] * (ABNORMAL) POCT glucose (11/01/2023 5:17 PM [...] APRIL CE Final Result Performing Organization Address [facility] de Phone Number [facility] [address] [facility] [place] [address] * (ABNORMAL) POCT glucose (11/01/2023 12:01 PM [...] APRIL CE Final Result Performing Organization Address [facility] de Phone Number [facility] [address] [facility] [employer] [place], [place] [phone] * (ABNORMAL) POCT glucose (11/01/2023 8:27 AM CDT) Pathologist [facility] Glucose, POC 246(H) 70 - 140 mg/dL Comment: For Glucose values <35 mg/dl when Hematocrit is >60 mg/dl,the test may not accurately detect significant hypoglycemia,and testing in the Laboratory should be considered if clinically indicated. Blood 11/01/2023 8:27 AM CDT 11/01/2023 8:27 AM CDT Jaqueline Valero MD LAB POCT ORDERABLES - APRIL CE Final Result Performing Organization Address [facility] de Phone Number [facility] [address] [place] [address] * eGFR (11/01/2023 2:09 AM CDT) Pathologist [facility] eGFR 6 mL/min/1. 73 m2 Comment: Interpretive [...] ORDERABLES Fi nal Result Performing Organization Address City/[facility]/ZIP Co de Phone Number [facility] [address] [place] [address] * (ABNORMAL) Protime-INR (11/01/2023 2:09 AM CDT) PT 20.6(H) 10.3 - 13.7 sec INR 1.81(H) 0.90 - 1.20 [facility] Comment: Interpretive data Oral anticoagulant [...] ORDERABLES Fi nal Result Performing Organization Address City/[facility]/ZIP Co de Phone Number [facility]3] [address] [place] [address] * Magnesium (11/01/2023 2:09 AM CDT) Magnesium 2.5 1.4 - 2.5 mg/dL Blood 11/01/2023 2:09 AM CDT 11/01/2023 2:21 AM CDT Byron Olvera NP LAB BLOOD ORDERABLES Fi nal Result [facility]3] [address] Department [place] [address] * (ABNORMAL) Renal function panel (11/01/2023 2:09 AM CDT) Sodium 131(L) 135 - 145 mmol/L Potassium, pl 4.0 3.3 - 4.9 mmol/L [facility]3] Chloride 91(L) 97 - 110 mmol/L [facility]3] CO2 25 22 - 32 mmol/L [facility]3] Anion gap 15 2 - 15 mmol/L [facility]3] BUN 89(H) 6 - 25 mg/dL [facility]3] Creatinine 8.97(H) 0.80 - 1.30 mg/dL [facility]3] Glucose 302(H) 70 - 199 mg/dL [facility]3] Comment: Interpretive Data Fasting glucose >/= 126 [...] 2022. Calcium 9.1 8.5 - 10.3 mg/dL [facility]3] Phosphorus, pl 4.1 2.3 - 4.5 mg/dL [facility]3] Albumin 2.9(L) 3.5 - 5.0 g/dL [facility]3] Blood 11/01/2023 2:09 AM CDT 11/01/2023 2:21 AM CDT Byron Olvera NP LAB BLOOD ORDERABLES Fi nal Result [facility] [address] [place] [address] * (ABNORMAL) CBC without differential (11/01/2023 2:09 AM CDT) [facility] WBC 5.9 3.8 - 9.9 K/cumm Hgb 7.7(L) 13.0 - 17.5 g/dL [facility]3] Hct 25.0(L) 38.9 - 50.3 % [facility]3] Plt 381 150 - 400 K/cumm [facility]3] MPV 9.2 9.1 - 12.3 fL [facility]3] RBC 2.65(L) 4.30 - 5.80 M/cumm [facility]3] MCV 94.3 81.3 - 96.4 fL [facility]3] MCH 29.1 27.1 - 33.3 pg [facility]3] MCHC 30.8(L) 32.3 - 35.7 g/dL [facility]3] RDW CV 14.8 11.1 - 14.9 % [facility]3] RDW SD 50.6(H) 35.7 - 48.1 fL [facility]3] NRBC abs 0.00 0.00 - 0.01 K/cumm [facility]3] Blood 11/01/2023 2:09 AM CDT 11/01/2023 2:21 AM CDT us Byron Olvera LO[employer] BR[employer]ER LAB BLOOD ORDERABLES nal Result [facility]3] [address] [place] [address] * Vancomycin level random (11/01/2023 2:09 AM CDT) [facility] Vancomycin random 17.3 mcg/mL Comment: Interpretive Data No reference ranges have been established for random drug levels. Current Interpretive Data was last revised on 2020. Blood 11/01/2023 2:09 AM CDT 11/01/2023 2:21 AM CDT us Guerline Rodriguez PA LAB BLOOD ORDERABLES Final R esult Performing Organization Address [facility] Co de Phone Number [facility] [address] [facility] [employer] [place], [place] [phone] * (ABNORMAL) POCT glucose (11/01/2023 2:05 AM [...] Final Result Performing Organization Address [facility] Co de Phone Number [facility] [address] [facility] [place] [address] * (ABNORMAL) POCT glucose (10/31/2023 9:21 PM [...] APRIL CE Final Result Performing Organization Address [facility] Co de Phone Number [facility] [address] [facility] [employer] [place], [place] [phone] * (ABNORMAL) POCT glucose (10/31/2023 5:12 PM [...] APRIL CE Final Result Performing Organization Address [facility] Co de Phone Number [facility] [address] [facility] [place] [address] * (ABNORMAL) POCT glucose (10/31/2023 12:02 PM [...] Result Performing Organization Address [facility] de Phone Number [facility]3] [address] [facility] [place] [address] * (ABNORMAL) POCT glucose (10/31/2023 12:01 PM [...] APRIL CE Final Result Performing Organization Address [facility] Co de Phone Number [facility] [address] [place] [address] * (ABNORMAL) POCT glucose (10/31/2023 8:06 AM CDT) [facility] Glucose, POC 338(H) 70 - 140 mg/dL Comment: For Glucose values <35 mg/dl when Hematocrit is >60 mg/dl,the test may not accurately detect significant hypoglycemia,and testing in the Laboratory should be considered if clinically indicated. Blood 10/31/2023 8:06 AM CDT 10/31/2023 8:06 AM CDT us Jaqueline Valero MD LAB POCT ORDERABLES - APRIL CE Final Result [facility] [address] Department [place] [address] * eGFR (10/31/2023 2:25 AM CDT) [facility] eGFR 6 mL/min/1. 73 m2 Comment: Interpretive [...] ORDERABLES Fi nal Result Performing Organization Address City/[facility] Co de Phone Number [facility]3] [address] [facility] [place] [address] * (ABNORMAL) Protime-INR (10/31/2023 2:25 AM CDT) PT 20.6(H) 10.3 - 13.7 sec INR 1.81(H) 0.90 - 1.20 [facility] Comment: Interpretive data Oral anticoagulant [...] ORDERABLES Fi nal Result Performing Organization Address [facility] Co de Phone Number [facility]3] [address] [facility] [place] [address] * Magnesium (10/31/2023 2:25 AM CDT) Magnesium 2.5 1.4 - 2.5 mg/dL Blood 10/31/2023 2:25 AM CDT 10/31/2023 2:35 AM CDT Byron Olvera NP LAB BLOOD ORDERABLES Fi nal Result Performing Organization Address City/[facility] Co de Phone Number [facility]3] [address] [facility] [place] [address] * (ABNORMAL) Renal function panel (10/31/2023 2:25 AM CDT) [facility] Sodium 131(L) 135 - 145 mmol/L Potassium, pl 4.0 3.3 - 4.9 mmol/L [facility]3] Chloride 91(L) 97 - 110 mmol/L [facility]3] CO2 24 22 - 32 mmol/L [facility]3] Anion gap 16(H) 2 - 15 mmol/L [facility]3] BUN 90(H) 6 - 25 mg/dL [facility]3] Creatinine 9.34(H) 0.80 - 1.30 mg/dL [facility]3] Glucose 275(H) 70 - 199 mg/dL [facility]3] Comment: Interpretive Data Fasting glucose >/= 126 [...] 2022. Calcium 9.5 8.5 - 10.3 mg/dL [facility]3] Phosphorus, pl 4.8(H) 2.3 - 4.5 mg/dL [facility]3] Albumin 2.7(L) 3.5 - 5.0 g/dL [facility]3] Blood 10/31/2023 2:25 AM CDT 10/31/2023 2:35 AM CDT Byron Olvera NP LAB BLOOD ORDERABLES nal Result [facility]3] [address] Department [place] [address] * (ABNORMAL) CBC without differential (10/31/2023 2:25 AM CDT) [facility] WBC 6.6 3.8 - 9.9 K/cumm Hgb 7.9(L) 13.0 - 17.5 g/dL [facility]3] Hct 25.5(L) 38.9 - 50.3 % [facility]3] Plt 366 150 - 400 K/cumm [facility]3] MPV 9.3 9.1 - 12.3 fL [facility]3] RBC 2.70(L) 4.30 - 5.80 M/cumm [facility]3] MCV 94.4 81.3 - 96.4 fL [facility]3] MCH 29.3 27.1 - 33.3 pg [facility]3] MCHC 31.0(L) 32.3 - 35.7 g/dL [facility]3] RDW CV 15.1(H) 11.1 - 14.9 % [facility]3] RDW SD 52.3(H) 35.7 - 48.1 fL [facility]3] NRBC abs 0.00 0.00 - 0.01 K/cumm [facility]3] Blood 10/31/2023 2:25 AM CDT 10/31/2023 2:34 AM CDT us Byron Olvera [employer] [facility] BLOOD ORDERABLES Fi nal Result [facility]3] [address] [place] [address] * (ABNORMAL) POCT glucose (10/30/2023 9:39 PM CDT) [facility] - [place] [facility], POC 238(H) 70 - 140 mg/dL Comment: For Glucose values <35 mg/dl when Hematocrit is >60 mg/dl,the test may not accurately detect significant hypoglycemia,and testing in the Laboratory should be considered if clinically indicated. Blood 10/30/2023 9:39 PM CDT 10/30/2023 9:39 PM CDT us Jaqueline Valero MD LAB POCT ORDERABLES - APRIL CE Final Result [facility]3] [address] [place] [address] * (ABNORMAL) POCT glucose (10/30/2023 5:31 PM [...] APRIL CE Final Result Performing Organization Address [facility] de Phone Number [facility]3] [address] [place] [address] * (ABNORMAL) POCT glucose (10/30/2023 12:17 PM [...] APRIL CE Final Result Performing Organization Address [facility] Co de Phone Number [facility]3] [address] [place] [address] * (ABNORMAL) POCT glucose (10/30/2023 6:20 AM [...] APRIL CE Final Result Performing Organization Address City/[facility]/ZIP Co de Phone Number [facility] [address] Department [place] [address] * eGFR (10/30/2023 4:18 AM CDT) eGFR [...] NP LAB BLOOD ORDERABLES Fi nal Result [facility]3] [address] [facility] [place] [address] * (ABNORMAL) Protime-INR (10/30/2023 4:18 AM CDT) [facility] PT 22.8(H) 10.3 - 13.7 sec INR 2.00(H) 0.90 - 1.20 [facility]3] Comment: Interpretive data Oral anticoagulant therapeutic ranges: Venous thromboembolism prophylaxis or treatment: 2.0-3.0 CARDIOLOGY Standard range: 2.0-3.0 High-intensity range: 2.5-3.5 Refer to indication-specific guidelines for appropriate target ranges for prosthetic heart valve replacement. Current interpretive data was last revised on 2019. Blood 10/30/2023 4:18 AM CDT 10/30/2023 4:46 AM CDT Byron Olvera NP LAB BLOOD ORDERABLES Fi nal Result Performing Organization Address City/[facility]/ZIP Co de Phone Number [facility]3] [address] [facility] [place] [address] * Magnesium (10/30/2023 4:18 AM CDT) [facility] Magnesium 2.4 1.4 - 2.5 mg/dL Blood 10/30/2023 4:18 AM CDT 10/30/2023 4:45 AM CDT Byron Olvera [employer] LAB BLOOD ORDERABLES Fi nal Result [facility]3] [address] [facility] [place] [address] * (ABNORMAL) Renal function panel (10/30/2023 4:18 AM CDT) [facility] Sodium 132(L) 135 - 145 mmol/L Potassium, pl 4.0 3.3 - 4.9 mmol/L [facility]3] Chloride 89(L) 97 - 110 mmol/L [facility]3] CO2 25 22 - 32 mmol/L [facility]3] Anion gap 18(H) 2 - 15 mmol/L [facility]3] BUN 93(H) 6 - 25 mg/dL [facility]3] Creatinine 9.55(H) 0.80 - 1.30 mg/dL [facility]3] Glucose 292(H) 70 - 199 mg/dL [facility]3] Comment: Interpretive Data Fasting glucose >/= 126 [...] 2022. Calcium 9.3 8.5 - 10.3 mg/dL [facility]3] Phosphorus, pl 5.4(H) 2.3 - 4.5 mg/dL [facility]3] Albumin 2.7(L) 3.5 - 5.0 g/dL [facility]3] Blood 10/30/2023 4:18 AM CDT 10/30/2023 4:45 AM CDT us Byron Olvera NP LAB BLOOD ORDERABLES Fi nal Result [facility]3] [address] Department [place] [address] * (ABNORMAL) CBC without differential (10/30/2023 4:18 AM CDT) WBC 6.5 3.8 - 9.9 K/cumm Hgb 7.6(L) 13.0 - 17.5 g/dL [facility]3] Hct 24.3(L) 38.9 - 50.3 % [facility]3] Plt 317 150 - 400 K/cumm [facility]3] MPV 9.8 9.1 - 12.3 fL [facility]3] RBC 2.59(L) 4.30 - 5.80 M/cumm [facility]3] MCV 93.8 81.3 - 96.4 fL [facility]3] MCH 29.3 27.1 - 33.3 pg [facility]3] MCHC 31.3(L) 32.3 - 35.7 g/dL [facility]3] RDW CV 15.1(H) 11.1 - 14.9 % [facility]3] RDW SD 52.2(H) 35.7 - 48.1 fL [facility]3] NRBC abs 0.00 0.00 - 0.01 K/cumm [facility]3] Blood 10/30/2023 4:18 AM CDT 10/30/2023 4:45 AM CDT Byron Olvera [employer]ER LAB BLOOD ORDERABLES Fi nal Result Performing Organization Address [facility]/ZIP Co de Phone Number [facility]3] [address] [place] [address] * (ABNORMAL) POCT glucose (10/29/2023 9:59 PM [...] APRIL CE Final Result Performing Organization Address City/[facility]/ZIP Co de Phone Number [facility]3] [address] [place] [address] * (ABNORMAL) POCT glucose (10/29/2023 5:41 PM [...] ORDERABLES - APRIL CE Final Result [facility] [address] [place] [address] * US Vein Duplex Lower Extremity Bilateral [...] ORDERABLES - APRIL CE Final Result [facility] [address] [place] [address] * (ABNORMAL) POCT glucose (10/29/2023 [...] ORDERABLES - APRIL CE Final Result [facility] [address] Department [place] [address] * eGFR (10/29/2023 4:04 AM CDT) eGFR [...] CDT 10/29/2023 4:10 AM CDT Byron Olvera LO[employer]ER LAB BLOOD ORDERABLES Fi nal Result [facility] [address] Department [place] [address] * (ABNORMAL) Protime-INR (10/29/2023 4:04 AM CDT) Pathologist [facility] PT 26.9(H) 10.3 - 13.7 sec INR 2.36(H) 0.90 - 1.20 [facility]3] Comment: Interpretive data Oral anticoagulant therapeutic ranges: Venous thromboembolism prophylaxis or treatment: 2.0-3.0 CARDIOLOGY Standard range: 2.0-3.0 High-intensity range: 2.5-3.5 Refer to indication-specific guidelines for appropriate target ranges for prosthetic heart valve replacement. Current interpretive data was last revised on 2019. Blood 10/29/2023 4:04 AM CDT 10/29/2023 4:11 AM CDT Byron Olvera [employer] LAB BLOOD ORDERABLES Fi nal Result [facility] [address] Department [place] [address] * Magnesium (10/29/2023 4:04 AM CDT) Pathologist [facility] Magnesium 2.4 1.4 - 2.5 mg/dL Blood 10/29/2023 4:04 AM CDT 10/29/2023 4:10 AM CDT Byron Olvera LO[employer] BR[employer]ER LAB BLOOD ORDERABLES Fi nal Result [facility] [address] Department [place] [address] * (ABNORMAL) Renal function panel (10/29/2023 4:04 AM CDT) Pathologist [facility] Sodium 129(L) 135 - 145 mmol/L Potassium, pl 4.1 3.3 - 4.9 mmol/L [facility]3] Chloride 87(L) 97 - 110 mmol/L [facility]3] CO2 23 22 - 32 mmol/L [facility]3] Anion gap 19(H) 2 - 15 mmol/L [facility]3] BUN 85(H) 6 - 25 mg/dL [facility]3] Creatinine 9.66(H) 0.80 - 1.30 mg/dL [facility]3] Glucose 297(H) 70 - 199 mg/dL [facility]3] Comment: Interpretive Data Fasting glucose >/= 126 [...] 2022. Calcium 9.5 8.5 - 10.3 mg/dL [facility]3] Phosphorus, pl 5.8(H) 2.3 - 4.5 mg/dL [facility]3] Albumin 2.9(L) 3.5 - 5.0 g/dL [facility]3] Blood 10/29/2023 4:04 AM CDT 10/29/2023 4:10 AM CDT Byron Olvera NP LAB BLOOD ORDERABLES Fi nal Result [facility]3] [address] [place] [address] * (ABNORMAL) CBC without differential (10/29/2023 4:04 AM CDT) WBC 7.0 3.8 - 9.9 K/cumm Hgb 7.9(L) 13.0 - 17.5 g/dL [facility]3] Hct 25.2(L) 38.9 - 50.3 % [facility]3] Plt 291 150 - 400 K/cumm [facility]3] MPV 10.0 9.1 - 12.3 fL [facility]3] RBC 2.70(L) 4.30 - 5.80 M/cumm [facility]3] MCV 93.3 81.3 - 96.4 fL [facility]3] MCH 29.3 27.1 - 33.3 pg [facility]3] MCHC 31.3(L) 32.3 - 35.7 g/dL [facility]3] RDW CV 15.4(H) 11.1 - 14.9 % [facility]3] RDW SD 52.0(H) 35.7 - 48.1 fL [facility]3] NRBC abs 0.00 0.00 - 0.01 K/cumm [facility]3] Blood 10/29/2023 4:04 AM CDT 10/29/2023 4:11 AM CDT us Byron Olvera [employer] LAB BLOOD ORDERABLES Fi nal Result Performing Organization Address [facility]/ZIP Co de Phone Number [facility]3] [address] [employer] [place], [place] [id number] * (ABNORMAL) POCT glucose (10/28/2023 8:22 PM [employer]) Glucose, POC 195(H) 70 - 140 mg/dL Comment: For Glucose values <35 mg/dl when Hematocrit is >60 mg/dl,the test may not accurately detect significant hypoglycemia,and testing in the Laboratory should be considered if clinically indicated. Blood 10/28/2023 8:22 PM [employer] 10/28/2023 8:22 PM [employer] Jaqueline Valero MD LAB POCT ORDERABLES - APRIL CE Final Result Performing Organization Address [facility]/ZIP Co de Phone Number [facility]3] [address] Department [employer] [place], [place] [id number] * (ABNORMAL) POCT glucose (10/28/2023 5:24 PM [employer]) Glucose, POC 222(H) 70 - 140 mg/dL Comment: For Glucose values <35 mg/dl when Hematocrit is >60 mg/dl,the test may not accurately detect significant hypoglycemia,and testing in the Laboratory should be considered if clinically indicated. Blood 10/28/2023 5:24 PM [employer] 10/28/2023 5:24 PM [employer] Jaqueline Valero MD LAB POCT ORDERABLES - APRIL CE Final Result Performing Organization Address [facility] de Phone Number [facility]3] [address] [facility] [place] [address] * (ABNORMAL) POCT glucose (10/28/2023 12:45 PM [employer]) Glucose, POC 201(H) 70 - 140 mg/dL Comment: For Glucose values <35 mg/dl when Hematocrit is >60 mg/dl,the test may not accurately detect significant hypoglycemia,and testing in the Laboratory should be considered if clinically indicated. Blood 10/28/2023 12:4 5 PM [employer] 10/28/2023 12:45 PM [employer] Jaqueline Valero MD LAB POCT ORDERABLES - APRIL CE Final Result Performing Organization Address [facility] de Phone Number [facility]3] [address] [facility] [place] [address] * POCT glucose (10/28/2023 8:04 AM [employer]) Glucose, POC 101 70 - 140 mg/dL Comment: For Glucose values <35 mg/dl when Hematocrit is >60 mg/dl,the test may not accurately detect significant hypoglycemia,and testing in the Laboratory should be considered if clinically indicated. Blood 10/28/2023 8:0 4 AM [employer] 10/28/2023 8:04 AM [employer] Jaqueline Valero MD LAB POCT ORDERABLES - APRIL CE Final Result Performing Organization Address [facility]/ZIP Co de Phone Number [facility]3] [address] [place] [address] * XR Chest 1 View - Portable - in AM (10/28/2023 6:00 AM [employer]) Anatomical Region Laterality Modality Body, Chest N/A Computed Radiogr aphy 10/28/2023 8:40 AM [employer] Impressions 10/28/2023 8:40 AM [employer] Comparison made to radiograph 10/27/2023. Right internal jugular approach central venous catheter tip overlying the superior vena cava. ??Median sternotomy wires and plates in similar alignment. Likely small bilateral pleural effusions with fluid along the right minor fissure. ??There is mild bibasilar atelectasis. ??No pneumothorax. ??Cardiomediastinal silhouette is stably enlarged. Electronically signed by: Trace Barrow M.D. Narrative 10/28/2023 8:40 AM [employer] EXAMINATION: XR CHEST 1 VIEW Procedure Note [...] signed by: Trace Barrow M.D. Byron Olvera [employer] IMG XR PROCEDURES Final Result * eGFR (10/28/2023 12:34 AM [employer]) eGFR 6 mL/min/1. 73 m2 Comment: Interpretive [...] reviewed 2021. Blood 10/28/2023 12:3 4 AM [employer] 10/28/2023 1:02 AM [employer] us Byron Olvera NP LAB BLOOD ORDERABLES Fi nal Result Performing Organization Address [facility] Co de Phone Number [facility]3] [address] [place] [address] * (ABNORMAL) aPTT (10/28/2023 12:34 AM [employer]) aPTT 102(H) 28 - 38 sec Comment: Interpretive Data Heparin therapeutic range: 66.0 - 100.0 seconds. Range based on correlation with therapeutic heparin activity range of 0.3 - 0.7 Units/mL. Current interpretive data was last revised on 2023. Blood 10/28/2023 12:3 4 AM [employer] 10/28/2023 1:02 AM [employer] Narrative [facility] - 10/28/2023 1:15 AM [employer] While on heparin us Jaqueline Valeor MD LAB BLOOD ORDERABLES Final Result Performing Organization Address [facility] Co de Phone Number [facility]3] [address] [place] [address] * (ABNORMAL) Protime-INR (10/28/2023 12:34 AM [employer]) [facility] PT 30.1(H) 10.3 - 13.7 sec INR 2.64(H) 0.90 - 1.20 [facility]3] Comment: Interpretive data Oral anticoagulant therapeutic ranges: Venous thromboembolism prophylaxis or treatment: 2.0-3.0 CARDIOLOGY Standard range: 2.0-3.0 High-intensity range: 2.5-3.5 Refer to indication-specific guidelines for appropriate target ranges for prosthetic heart valve replacement. Current interpretive data was last revised on 2019. Blood 10/28/2023 12:3 4 AM [employer] 10/28/2023 1:02 AM [employer] Byron Olvera NP LAB BLOOD ORDERABLES Fi nal Result Performing Organization Address [facility]/ZIP Co de Phone Number [facility]3] [address] [employer] [place] [address] * Magnesium (10/28/2023 12:34 AM [employer]) [facility] Magnesium 2.3 1.4 - 2.5 mg/dL Blood 10/28/2023 12:3 4 AM [employer] 10/28/2023 1:02 AM [employer] Byron Olvera NP LAB BLOOD ORDERABLES Fi nal Result Performing Organization Address City/[facility]/ZIP Co de Phone Number [facility]3] [address] [facility] [place] [address] * (ABNORMAL) Renal function panel (10/28/2023 12:34 AM [employer]) [facility] Sodium 128(L) 135 - 145 mmol/L Potassium, pl 4.4 3.3 - 4.9 mmol/L [facility]3] Chloride 87(L) 97 - 110 mmol/L [facility]3] CO2 22 22 - 32 mmol/L [facility]3] Anion gap 19(H) 2 - 15 mmol/L [facility]3] BUN 90(H) 6 - 25 mg/dL [facility]3] Creatinine 9.98(H) 0.80 - 1.30 mg/dL [facility]3] Glucose 270(H) 70 - 199 mg/dL [facility]3] Comment: Interpretive Data Fasting glucose >/= 126 [...] 2022. Calcium 8.9 8.5 - 10.3 mg/dL [facility]3] Phosphorus, pl 6.3(H) 2.3 - 4.5 mg/dL [facility]3] Albumin 2.9(L) 3.5 - 5.0 g/dL [facility]3] Blood 10/28/2023 12:3 4 AM [employer] 10/28/2023 1:02 AM [employer] Byron Olvera NP LAB BLOOD ORDERABLES Fi nal Result [facility]3] [address] Department of Laboratories [place], [place] [id number] * (ABNORMAL) CBC without differential (10/28/2023 12:34 AM [employer]) Pathologist [facility] WBC 7.4 3.8 - 9.9 K/cumm Hgb 7.4(L) 13.0 - 17.5 g/dL [facility]3] Hct 24.1(L) 38.9 - 50.3 % [facility]3] Plt 244 150 - 400 K/cumm [facility]3] MPV 10.5 9.1 - 12.3 fL [facility]3] RBC 2.55(L) 4.30 - 5.80 M/cumm [facility]3] MCV 94.5 81.3 - 96.4 fL [facility]3] MCH 29.0 27.1 - 33.3 pg [facility]3] MCHC 30.7(L) 32.3 - 35.7 g/dL [facility]3] RDW CV 15.6(H) 11.1 - 14.9 % [facility]3] RDW SD 53.4(H) 35.7 - 48.1 fL [facility]3] NRBC abs 0.00 0.00 - 0.01 K/cumm [facility]3] Blood 10/28/2023 12:3 4 AM [employer] 10/28/2023 1:03 AM [employer] WORK[employer] GENERAL Byron Olvera [employer]ER LAB BLOOD ORDERABLES Fi nal Result Performing Organization Address [facility] Co de Phone Number [facility]3] [address] [place] [address] * (ABNORMAL) POCT glucose (10/27/2023 10:01 PM [employer]) Glucose, POC 312(H) 70 - 140 mg/dL Comment: For Glucose values <35 mg/dl when Hematocrit is >60 mg/dl,the test may not accurately detect significant hypoglycemia,and testing in the Laboratory should be considered if clinically indicated. Blood 10/27/2023 10:0 1 PM [employer] 10/27/2023 10:01 PM [employer] us Jaqueline Valero MD LAB POCT ORDERABLES - APRIL CE Final Result Performing Organization Address [facility] Co de Phone Number [facility]3] [address] [address] * POCT glucose (10/27/2023 5:48 PM [employer]) Glucose, POC 108 70 - 140 mg/dL Comment: For Glucose values <35 mg/dl when Hematocrit is >60 mg/dl,the test may not accurately detect significant hypoglycemia,and testing in the Laboratory should be considered if clinically indicated. Blood 10/27/2023 5:48 PM [employer] 10/27/2023 5:48 PM [employer] Jaqueline Valero MD LAB POCT ORDERABLES - APRIL CE Final Result Performing Organization Address [facility] de Phone Number [facility] [address] [facility] [place] [address] * (ABNORMAL) POCT glucose (10/27/2023 11:54 AM [employer]) Glucose, POC 232(H) 70 - 140 mg/dL Comment: For Glucose values <35 mg/dl when Hematocrit is >60 mg/dl,the test may not accurately detect significant hypoglycemia,and testing in the Laboratory should be considered if clinically indicated. Blood 10/27/2023 11:5 4 AM [employer] GENER[employer] 10/27/2023 11:54 AM [employer] GENERAL Jaqueline Valero MD LAB POCT ORDERABLES - APRIL CE Final Result Performing Organization Address [facility] de Phone Number [facility] [address] [facility] [employer] [place] [address] * (ABNORMAL) T4, free (10/27/2023 11:02 AM [employer]) Free T4 0.68(L) 0.90 - 1.70 ng/dL Blood 10/27/2023 11:0 2 AM [employer] 10/27/2023 11:14 AM [employer] Result [facility] Fernandez Carranza MD LAB BLOOD ORDERABLES Final Resu lt Performing Organization Address [facility] de Phone Number [facility] [address] [facility] [employer] [place] [address] * (ABNORMAL) POCT glucose (10/27/2023 8:28 AM FOUNDRY WORKER GENERAL) Glucose, POC 255(H) 70 - 140 mg/dL Comment: For Glucose values <35 mg/dl when Hematocrit is >60 mg/dl,the test may not accurately detect significant hypoglycemia,and testing in the Laboratory should be considered if clinically indicated. Blood 10/27/2023 8:28 AM FOUNDRY WORKER GENERAL 10/27/2023 8:28 AM FOUNDRY WORKER GENERAL Jaqueline Valero MD LAB POCT ORDERABLES - APRIL CE Final Result [facility] [address] Department [place] [address] * XR Chest 1 View - Portable - in AM (10/27/2023 6:14 AM FOUNDRY WORKER GENERAL) Anatomical Region Laterality Modality Body, Chest N/A Computed Radiogr aphy 10/27/2023 10:5 5 AM FOUNDRY WORKER GENERAL Impressions 10/27/2023 10:55 AM FOUNDRY WORKER GENERAL Right internal jugular central venous catheter terminates in the superior cavoatrial junction. Unchanged small left pleural effusion with associated atelectasis. No consolidation to suggest pneumonia. ??No pneumothorax. ??Cardiac mediastinal silhouette is stable. Electronically signed by: Gucci Moe M.D. Narrative 10/27/2023 10:55 AM FOUNDRY WORKER GENERAL EXAMINATION: XR CHEST 1 VIEW HISTORY: pleural [...] by: Gucci Moe M.D. us Byron Olvera [employer]AN BR[employer]ER IMG XR PROCEDURES Final Result * (ABNORMAL) Osmolality, blood (10/27/2023 6:02 AM FOUNDRY WORKER GENERAL) Osmo 313(H) 275 - 295 mOsm/kg Blood 10/27/2023 6:02 AM FOUNDRY WORKER GENERAL 10/27/2023 6:12 AM FOUNDRY WORKER GENERAL Fernandez Carranza MD LAB BLOOD ORDERABLES Final Resu lt Performing Organization Address [facility] de Phone Number [facility] [address] [facility] [employer] [place], [place] [id number] * (ABNORMAL) TSH (10/27/2023 2:30 AM FOUNDRY WORKER GENERAL) Pathologist [facility] Thyroid Stimulating Hormone 13.20(H) 0.30 - 4.20 mcIUnit/mL Blood 10/27/2023 2:30 AM FOUNDRY WORKER GENERAL 10/27/2023 2:42 AM FOUNDRY WORKER GENERAL Jaqueline Valero MD LAB BLOOD ORDERABLES Final Result Performing Organization Address [facility] de Phone Number [facility] [address] [facility] [place] [address] * (ABNORMAL) aPTT (10/27/2023 2:30 AM FOUNDRY WORKER GENERAL) [facility] aPTT 91(H) 28 - 38 sec Comment: Interpretive Data Heparin therapeutic range: 66.0 - 100.0 seconds. Range based on correlation with therapeutic heparin activity range of 0.3 - 0.7 Units/mL. Current interpretive data was last revised on 2023. Blood 10/27/2023 2:30 AM FOUNDRY WORKER GENERAL 10/27/2023 2:34 AM FOUNDRY WORKER GENERAL Jaqueline Valero MD LAB BLOOD ORDERABLES Final Result Performing Organization Address [facility] de Phone Number [facility] [address] [facility] [place] [address] * eGFR (10/27/2023 2:30 AM FOUNDRY WORKER GENERAL) Pathologist [facility] eGFR 6 mL/min/1. 73 m2 Comment: Interpretive [...] last reviewed 2021. Blood 10/27/2023 2:30 AM FOUNDRY WORKER GENERAL 10/27/2023 2:42 AM FOUNDRY WORKER GENERAL us Byron Olvera NP LAB BLOOD ORDERABLES Fi nal Result [facility]3] [address] [place] [address] * (ABNORMAL) Protime-INR (10/27/2023 2:30 AM FOUNDRY WORKER GENERAL) PT 22.7(H) 10.3 - 13.7 sec INR 1.99(H) 0.90 - 1.20 [facility] Comment: Interpretive data Oral anticoagulant therapeutic ranges: Venous thromboembolism prophylaxis or treatment: 2.0-3.0 CARDIOLOGY Standard range: 2.0-3.0 High-intensity range: 2.5-3.5 Refer to indication-specific guidelines for appropriate target ranges for prosthetic heart valve replacement. Current interpretive data was last revised on 2019. Blood 10/27/2023 2:30 AM FOUNDRY WORKER GENERAL 10/27/2023 2:34 AM FOUNDRY WORKER GENERAL us Byron Olvera [employer] LAB BLOOD ORDERABLES Fi nal Result Performing Organization Address City/[facility]/ZIP Co de Phone Number [facility]3] [address] [place] [address] * Magnesium (10/27/2023 2:30 AM FOUNDRY WORKER GENERAL) [facility] Magnesium 2.3 1.4 - 2.5 mg/dL Blood 10/27/2023 2:30 AM FOUNDRY WORKER GENERAL 10/27/2023 2:42 AM FOUNDRY WORKER GENERAL Byron Olvera LO[employer] BROKER LAB BLOOD ORDERABLES Fi nal Result Performing Organization Address [facility] Co de Phone Number [facility]3] [address] [employer] [place] [address] * (ABNORMAL) Renal function panel (10/27/2023 2:30 AM FOUNDRY WORKER GENERAL) [facility] Sodium 123(L) 135 - 145 mmol/L Potassium, pl 4.2 3.3 - 4.9 mmol/L [facility]3] Chloride 85(L) 97 - 110 mmol/L [facility]3] CO2 24 22 - 32 mmol/L [facility]3] Anion gap 14 2 - 15 mmol/L [facility]3] BUN 87(H) 6 - 25 mg/dL [facility]3] Creatinine 10.09(H) 0.80 - 1.30 mg/dL [facility]3] Glucose 192 70 - 199 mg/dL [facility]3] Comment: Interpretive Data Fasting glucose >/= 126 [...] 2022. Calcium 8.7 8.5 - 10.3 mg/dL [facility]3] Phosphorus, pl 7.1(H) 2.3 - 4.5 mg/dL [facility]3] Albumin 2.9(L) 3.5 - 5.0 g/dL [facility]3] Blood 10/27/2023 2:30 AM FOUNDRY WORKER GENERAL 10/27/2023 2:42 AM FOUNDRY WORKER GENERAL Byron Olvera NP LAB BLOOD ORDERABLES Fi nal Result Performing Organization Address [facility] Co de Phone Number [facility]3] [address] [employer] [place], [place] [id number] * (ABNORMAL) CBC without differential (10/27/2023 2:30 AM FOUNDRY WORKER GENERAL) [facility] WBC 8.0 3.8 - 9.9 K/cumm Hgb 7.5(L) 13.0 - 17.5 g/dL [facility]3] Hct 23.7(L) 38.9 - 50.3 % [facility]3] Plt 222 150 - 400 K/cumm [facility]3] MPV 10.3 9.1 - 12.3 fL [facility]3] RBC 2.55(L) 4.30 - 5.80 M/cumm [facility]3] MCV 92.9 81.3 - 96.4 fL [facility]3] MCH 29.4 27.1 - 33.3 pg [facility]3] MCHC 31.6(L) 32.3 - 35.7 g/dL [facility]3] RDW CV 15.6(H) 11.1 - 14.9 % [facility]3] RDW SD 53.1(H) 35.7 - 48.1 fL [facility]3] NRBC abs 0.00 0.00 - 0.01 K/cumm [facility]3] Blood 10/27/2023 2:30 AM FOUNDRY WORKER GENERAL 10/27/2023 2:42 AM FOUNDRY WORKER GENERAL Byron Olvera NP LAB BLOOD ORDERABLES Fi nal Result Performing Organization Address [facility]/ZIP Co de Phone Number [facility]3] [address] Department [employer] [place], [place] [id number] * (ABNORMAL) POCT glucose (10/26/2023 11:15 PM FOUNDRY WORKER GENERAL) Glucose, POC 220(H) 70 - 140 mg/dL Comment: For Glucose values <35 mg/dl when Hematocrit is >60 mg/dl,the test may not accurately detect significant hypoglycemia,and testing in the Laboratory should be considered if clinically indicated. Blood 10/26/2023 11:1 5 PM FOUNDRY WORKER GENERAL 10/26/2023 11:15 PM FOUNDRY WORKER GENERAL Jaqueline Valero MD LAB POCT ORDERABLES - APRIL CE Final Result Performing Organization Address [facility] Co de Phone Number [facility] [address] [facility] [place] [address] * (ABNORMAL) POCT glucose (10/26/2023 4:53 PM FOUNDRY WORKER GENERAL) Glucose, POC 333(H) 70 - 140 mg/dL Comment: For Glucose values <35 mg/dl when Hematocrit is >60 mg/dl,the test may not accurately detect significant hypoglycemia,and testing in the Laboratory should be considered if clinically indicated. Blood 10/26/2023 4:53 PM FOUNDRY WORKER GENERAL 10/26/2023 4:53 PM FOUNDRY WORKER GENERAL Jaqueline Valero MD LAB POCT ORDERABLES - APRIL CE Final Result Performing Organization Address [facility] Co de Phone Number [facility]3] [address] [facility] [place] [address] * (ABNORMAL) POCT glucose (10/26/2023 11:57 AM FOUNDRY WORKER GENERAL) Glucose, POC 203(H) 70 - 140 mg/dL Comment: For Glucose values <35 mg/dl when Hematocrit is >60 mg/dl,the test may not accurately detect significant hypoglycemia,and testing in the Laboratory should be considered if clinically indicated. Blood 10/26/2023 11:5 7 AM FOUNDRY WORKER GENERAL 10/26/2023 11:57 AM FOUNDRY WORKER GENERAL Jaqueline Valero MD LAB POCT ORDERABLES - APRIL CE Final Result Performing Organization Address [facility] Co de Phone Number [facility] [address] Department [place] [address] * POCT glucose (10/26/2023 8:00 AM FOUNDRY WORKER GENERAL) [facility] Signature Glucose, POC 90 70 - 140 mg/dL Comment: For Glucose values <35 mg/dl when Hematocrit is >60 mg/dl,the test may not accurately detect significant hypoglycemia,and testing in the Laboratory should be considered if clinically indicated. Blood 10/26/2023 8:00 AM FOUNDRY WORKER GENERAL 10/26/2023 8:00 AM FOUNDRY WORKER GENERAL Jaqueline Valero MD LAB POCT ORDERABLES - APRIL CE Final Result Performing Organization Address [facility] de Phone Number [facility] [address] Department [place] [address] * XR Chest 1 View - Portable - in AM (10/26/2023 5:09 AM FOUNDRY WORKER GENERAL) Anatomical Region Laterality Modality Body, Chest N/A Computed Radiogr aphy 10/26/2023 7:40 AM FOUNDRY WORKER GENERAL Impressions 10/26/2023 7:40 AM FOUNDRY WORKER GENERAL Comparison chest radiograph 10/25/2023 at 6:39 AM. [...] Chris Troncoso M.D. Narrative 10/26/2023 7:40 AM FOUNDRY WORKER GENERAL EXAMINATION: ??1 view chest radiograph Procedure Note [...] signed by: Chris Troncoso M.D. Byron Olvera LOAN BROKER IMG XR PROCEDURES Final Result * eGFR (10/26/2023 2:29 AM FOUNDRY WORKER GENERAL) eGFR 6 mL/min/1. 73 m2 Comment: Interpretive [...] last reviewed 2021. Blood 10/26/2023 2:29 AM FOUNDRY WORKER GENERAL 10/26/2023 3:11 AM FOUNDRY WORKER GENERAL Byron Olvera LO[employer] BROKER LAB BLOOD ORDERABLES Fi nal Result Performing Organization Address [facility] Co de Phone Number [facility]3] [address] Department [place] [address] * (ABNORMAL) aPTT (10/26/2023 2:29 AM FOUNDRY WORKER GENERAL) aPTT 74(H) 28 - 38 sec Comment: Interpretive Data Heparin therapeutic range: 66.0 - 100.0 seconds. Range based on correlation with therapeutic heparin activity range of 0.3 - 0.7 Units/mL. Current interpretive data was last revised on 2023. Blood 10/26/2023 2:29 AM FOUNDRY WORKER GENERAL 10/26/2023 2:57 AM FOUNDRY WORKER GENERAL Jaqueline Valero MD LAB BLOOD ORDERABLES Final Result Performing Organization Address [facility] de Phone Number [facility])[3] [address] [facility] [place] [address] * (ABNORMAL) Protime-INR (10/26/2023 2:29 AM FOUNDRY WORKER GENERAL) PT 19.4(H) 10.3 - 13.7 sec INR 1.70(H) 0.90 - 1.20 [facility] Comment: Interpretive data Oral anticoagulant therapeutic ranges: Venous thromboembolism prophylaxis or treatment: 2.0-3.0 CARDIOLOGY Standard range: 2.0-3.0 High-intensity range: 2.5-3.5 Refer to indication-specific guidelines for appropriate target ranges for prosthetic heart valve replacement. Current interpretive data was last revised on 2019. Blood 10/26/2023 2:29 AM FOUNDRY WORKER GENERAL 10/26/2023 2:57 AM FOUNDRY WORKER GENERAL Byron Olvera LO[employer] BROKER LAB BLOOD ORDERABLES Fi nal Result Performing Organization Address [facility] Co de Phone Number [facility]3] [address] [facility] [place] [address] * Magnesium (10/26/2023 2:29 AM FOUNDRY WORKER GENERAL) [facility] Magnesium 2.2 1.4 - 2.5 mg/dL Blood 10/26/2023 2:29 AM FOUNDRY WORKER GENERAL 10/26/2023 3:11 AM FOUNDRY WORKER GENERAL Byron Olvera LO[employer] BROKER LAB BLOOD ORDERABLES Fi nal Result Performing Organization Address [facility] de Phone Number [facility])[3] [address] [facility] [place] [address] * (ABNORMAL) Renal function panel (10/26/2023 2:29 AM FOUNDRY WORKER GENERAL) [facility] Sodium 124(L) 135 - 145 mmol/L Potassium, pl 4.2 3.3 - 4.9 mmol/L [facility]3] Chloride 84(L) 97 - 110 mmol/L [facility]3] CO2 23 22 - 32 mmol/L [facility]3] Anion gap 17(H) 2 - 15 mmol/L [facility]3] BUN 85(H) 6 - 25 mg/dL [facility]3] Creatinine 9.95(H) 0.80 - 1.30 mg/dL [facility]3] Glucose 206(H) 70 - 199 mg/dL [facility]3] Comment: Interpretive Data Fasting glucose >/= 126 [...] 2022. Calcium 8.6 8.5 - 10.3 mg/dL [facility]3] Phosphorus, pl 6.5(H) 2.3 - 4.5 mg/dL [facility]3] Albumin 3.0(L) 3.5 - 5.0 g/dL [facility]3] Blood 10/26/2023 2:29 AM FOUNDRY WORKER GENERAL 10/26/2023 3:11 AM FOUNDRY WORKER GENERAL Byron Olvera NP LAB BLOOD ORDERABLES Fi nal Result Performing Organization Address City/[facility]/ZIP Co de Phone Number [facility])[3] [address] [place] [address] * (ABNORMAL) CBC without differential (10/26/2023 2:29 AM FOUNDRY WORKER GENERAL) WBC 7.9 3.8 - 9.9 K/cumm Hgb 7.9(L) 13.0 - 17.5 g/dL [facility]3] Hct 24.7(L) 38.9 - 50.3 % [facility]3] Plt 209 150 - 400 K/cumm [facility]3] MPV 10.6 9.1 - 12.3 fL [facility]3] RBC 2.64(L) 4.30 - 5.80 M/cumm [facility]3] MCV 93.6 81.3 - 96.4 fL [facility]3] MCH 29.9 27.1 - 33.3 pg [facility]3] MCHC 32.0(L) 32.3 - 35.7 g/dL [facility]3] RDW CV 15.5(H) 11.1 - 14.9 % [facility]3] RDW SD 52.4(H) 35.7 - 48.1 fL [facility]3] NRBC abs 0.00 0.00 - 0.01 K/cumm [facility]3] Blood 10/26/2023 2:29 AM FOUNDRY WORKER GENERAL 10/26/2023 3:11 AM FOUNDRY WORKER GENERAL Byron Olvera NP LAB BLOOD ORDERABLES Fi nal Result Performing Organization Address City/[facility]/ZIP Co de Phone Number [facility] [address] Department [place] [address] * (ABNORMAL) aPTT (10/25/2023 9:15 PM FOUNDRY WORKER GENERAL) aPTT 78(H) 28 - 38 sec Comment: Interpretive Data Heparin therapeutic range: 66.0 - 100.0 seconds. Range based on correlation with therapeutic heparin activity range of 0.3 - 0.7 Units/mL. Current interpretive data was last revised on 2023. Blood 10/25/2023 9:15 PM FOUNDRY WORKER GENERAL 10/25/2023 9:19 PM FOUNDRY WORKER GENERAL Jaqueline Valero MD LAB BLOOD ORDERABLES Final Result Performing Organization Address [facility] Co de Phone Number [facility] [address] [facility] [place] [address] * (ABNORMAL) POCT glucose (10/25/2023 9:14 PM FOUNDRY WORKER GENERAL) Glucose, POC 147(H) 70 - 140 mg/dL Comment: For Glucose values <35 mg/dl when Hematocrit is >60 mg/dl,the test may not accurately detect significant hypoglycemia,and testing in the Laboratory should be considered if clinically indicated. Blood 10/25/2023 9:14 PM FOUNDRY WORKER GENERAL 10/25/2023 9:14 PM FOUNDRY WORKER GENERAL Jaqueline Valero MD LAB POCT ORDERABLES - APRIL CE Final Result Performing Organization Address [facility] Co de Phone Number [facility] [address] [facility] [place] [address] * (ABNORMAL) POCT glucose (10/25/2023 4:51 PM FOUNDRY WORKER GENERAL) Glucose, POC 238(H) 70 - 140 mg/dL Comment: For Glucose values <35 mg/dl when Hematocrit is >60 mg/dl,the test may not accurately detect significant hypoglycemia,and testing in the Laboratory should be considered if clinically indicated. Blood 10/25/2023 4:51 PM FOUNDRY WORKER GENERAL 10/25/2023 4:51 PM FOUNDRY WORKER GENERAL Jaqueline Valero MD LAB POCT ORDERABLES - APRIL CE Final Result Performing Organization Address [facility] Co de Phone Number [facility] [address] [facility] [place] [address] * (ABNORMAL) aPTT (10/25/2023 2:48 PM FOUNDRY WORKER GENERAL) aPTT 72(H) 28 - 38 sec Comment: Interpretive Data Heparin therapeutic range: 66.0 - 100.0 seconds. Range based on correlation with therapeutic heparin activity range of 0.3 - 0.7 Units/mL. Current interpretive data was last revised on 2023. Blood 10/25/2023 2:48 PM FOUNDRY WORKER GENERAL 10/25/2023 3:04 PM FOUNDRY WORKER GENERAL Jaqueline Valero MD LAB BLOOD ORDERABLES Final Result Performing Organization Address [facility] de Phone Number [facility] [address] [facility] [place] [address] * (ABNORMAL) POCT glucose (10/25/2023 11:15 AM FOUNDRY WORKER GENERAL) Glucose, POC 208(H) 70 - 140 mg/dL Comment: For Glucose values <35 mg/dl when Hematocrit is >60 mg/dl,the test may not accurately detect significant hypoglycemia,and testing in the Laboratory should be considered if clinically indicated. Blood 10/25/2023 11:1 5 AM FOUNDRY WORKER GENERAL 10/25/2023 11:15 AM FOUNDRY WORKER GENERAL Jaqueline Valero MD LAB POCT ORDERABLES - APRIL CE Final Result Performing Organization Address [facility] Co de Phone Number [facility] [address] [facility] [place] [address] * POCT glucose (10/25/2023 9:49 AM FOUNDRY WORKER GENERAL) Glucose, POC 119 70 - 140 mg/dL Comment: For Glucose values <35 mg/dl when Hematocrit is >60 mg/dl,the test may not accurately detect significant hypoglycemia,and testing in the Laboratory should be considered if clinically indicated. Blood 10/25/2023 9:49 AM FOUNDRY WORKER GENERAL 10/25/2023 9:49 AM FOUNDRY WORKER GENERAL Jaqueline Valero MD LAB POCT ORDERABLES - APRIL CE Final Result Performing Organization Address [facility] Co de Phone Number [facility]3] [address] [facility] [place] [address] * POCT glucose (10/25/2023 7:36 AM FOUNDRY WORKER GENERAL) Glucose, POC 77 70 - 140 mg/dL [facility]3] Comment: For Glucose values <35 mg/dl when Hematocrit is >60 mg/dl,the test may not accurately detect significant hypoglycemia,and testing in the Laboratory should be considered if clinically indicated. Blood 10/25/2023 7:36 AM FOUNDRY WORKER GENERAL 10/25/2023 7:36 AM FOUNDRY WORKER GENERAL Jaqueline Valero MD LAB POCT ORDERABLES - APRIL CE Final Result Performing Organization Address [facility] de Phone Number [facility]3] [address] Department [place] [address] * XR Chest 1 View - Portable - in AM (10/25/2023 6:52 AM FOUNDRY WORKER GENERAL) Anatomical Region Laterality Modality Body, Chest N/A Computed Radiogr aphy 10/25/2023 11:4 3 AM FOUNDRY WORKER GENERAL Impressions 10/25/2023 1:22 PM F[employer]DRY WORKER GENERAL Comparison made to 10/24/2023. ??Sternal fixation wires [...] Arnoldo Abdul M.D. Narrative 10/25/2023 1:22 PM FOUNDRY WORKER GENERAL EXAMINATION: XR CHEST 1 VIEW Procedure Note [...] by: Arnoldo Abdul M.D. us Byron Olvera [employer] IMG XR PROCEDURES Final Result * (ABNORMAL) aPTT (10/25/2023 6:48 AM FOUNDRY WORKER GENERAL) aPTT 65(H) 28 - 38 sec [facility] Comment: Interpretive Data Heparin therapeutic range: 66.0 - 100.0 seconds. Range based on correlation with therapeutic heparin activity range of 0.3 - 0.7 Units/mL. Current interpretive data was last revised on 2023. Blood 10/25/2023 6:48 AM [employer]OUNDRY WORKER GENERAL 10/25/2023 6:58 AM FOUNDRY WORKER GENERAL us Jaqueline Valero MD LAB BLOOD ORDERABLES Final Result [facility] [address] Department [place] [address] * POCT glucose (10/25/2023 4:23 AM FOUNDRY WORKER GENERAL) [facility] Glucose, POC 130 70 - 140 mg/dL [facility]3] Comment: For Glucose values <35 mg/dl when Hematocrit is >60 mg/dl,the test may not accurately detect significant hypoglycemia,and testing in the Laboratory should be considered if clinically indicated. Blood 10/25/2023 4:23 AM FOUNDRY WORKER GENERAL 10/25/2023 4:23 AM FOUNDRY WORKER GENERAL us Jaqueline Valero MD LAB POCT ORDERABLES - APRIL CE Final Result Performing Organization Address City/State/[facility] Co de Phone Number [facility]3] [address] [place] [address] * eGFR (10/25/2023 12:34 AM FOUNDRY WORKER GENERAL) [facility] eGFR 5 mL/min/1. 73 m2 [facility]3] Comment: Interpretive Data Reference Interval Normal ?>/= [...] reviewed 2021. Blood 10/25/2023 12:3 4 AM FOUNDRY WORKER GENERAL 10/25/2023 12:42 AM FOUNDRY WORKER GENERAL Byron Olvera NP LAB BLOOD ORDERABLES Fi nal Result Performing Organization Address [facility] Co de Phone Number [facility]3] [address] [facility] [place] [address] * Magnesium (10/25/2023 12:34 AM FOUNDRY WORKER GENERAL) Pathologist [facility] Magnesium 2.3 1.4 - 2.5 mg/dL [facility]3] Blood 10/25/2023 12:3 4 AM FOUNDRY WORKER GENERAL 10/25/2023 12:42 AM FOUNDRY WORKER GENERAL Byron Olvera NP LAB BLOOD ORDERABLES Fi nal Result Performing Organization Address [facility] de Phone Number [facility]3] [address] [facility] [place] [address] * (ABNORMAL) Renal function panel (10/25/2023 12:34 AM FOUNDRY WORKER GENERAL) Sodium 128(L) 135 - 145 mmol/L [facility]3] Potassium, pl 4.0 3.3 - 4.9 mmol/L [facility]3] Chloride 86(L) 97 - 110 mmol/L [facility]3] CO2 21(L) 22 - 32 mmol/L [facility]3] Anion gap 21(H) 2 - 15 mmol/L [facility]3] BUN 86(H) 6 - 25 mg/dL [facility]3] Creatinine 10.57(H) 0.80 - 1.30 mg/dL [facility]3] Glucose 97 70 - 199 mg/dL [facility]3] Comment: Interpretive Data Fasting glucose >/= 126 [...] 2022. Calcium 9.0 8.5 - 10.3 mg/dL [facility]3] Phosphorus, pl 6.5(H) 2.3 - 4.5 mg/dL [facility]3] Albumin 2.9(L) 3.5 - 5.0 g/dL [facility]3] Blood 10/25/2023 12:3 4 AM FOUNDRY WORKER GENERAL 10/25/2023 12:42 AM FOUNDRY WORKER GENERAL Byron Olvera NP LAB BLOOD ORDERABLES Fi nal Result [facility]3] [address] Department [place] [address] * (ABNORMAL) CBC without differential (10/25/2023 12:34 AM FOUNDRY WORKER GENERAL) WBC 8.2 3.8 - 9.9 K/cumm [facility]3] Hgb 7.8(L) 13.0 - 17.5 g/dL [facility]3] Hct 24.7(L) 38.9 - 50.3 % [facility]3] Plt 202 150 - 400 K/cumm [facility]3] MPV 10.2 9.1 - 12.3 fL [facility]3] RBC 2.65(L) 4.30 - 5.80 M/cumm [facility]3] MCV 93.2 81.3 - 96.4 fL [facility]3] MCH 29.4 27.1 - 33.3 pg [facility]3] MCHC 31.6(L) 32.3 - 35.7 g/dL [facility]3] RDW CV 15.9(H) 11.1 - 14.9 % [facility]3] RDW SD 53.1(H) 35.7 - 48.1 fL [facility]3] NRBC abs 0.00 0.00 - 0.01 K/cumm [facility]3] Blood 10/25/2023 12:3 4 AM FOUNDRY WORKER GENERAL 10/25/2023 12:43 AM FOUNDRY WORKER GENERAL Byron Olvera NP LAB BLOOD ORDERABLES Fi nal Result Performing Organization Address [facility] Co de Phone Number [facility]3] [address] Department [place] [address] * (ABNORMAL) Protime-INR (10/25/2023 12:33 AM FOUNDRY WORKER GENERAL) PT 18.5(H) 10.3 - 13.7 sec [facility]3] INR 1.62(H) 0.90 - 1.20 [facility]3] Comment: Interpretive data Oral anticoagulant therapeutic ranges: Venous thromboembolism prophylaxis or treatment: 2.0-3.0 CARDIOLOGY Standard range: 2.0-3.0 High-intensity range: 2.5-3.5 Refer to indication-specific guidelines for appropriate target ranges for prosthetic heart valve replacement. Current interpretive data was last revised on 2019. Blood 10/25/2023 12:3 3 AM FOUNDRY WORKER GENERAL 10/25/2023 12:40 AM FOUNDRY WORKER GENERAL Jaqueline Valero MD LAB BLOOD ORDERABLES Final Result Performing Organization Address [facility] Co de Phone Number [facility]3] [address] Department [place] [address] * (ABNORMAL) aPTT (10/25/2023 12:33 AM FOUNDRY WORKER GENERAL) aPTT 58(H) 28 - 38 sec [facility]3] Comment: Interpretive Data Heparin therapeutic range: 66.0 - 100.0 seconds. Range based on correlation with therapeutic heparin activity range of 0.3 - 0.7 Units/mL. Current interpretive data was last revised on 2023. Blood 10/25/2023 12:3 3 AM FOUNDRY WORKER GENERAL 10/25/2023 12:40 AM FOUNDRY WORKER GENERAL Jaqueline Valero MD LAB BLOOD ORDERABLES Final Result Performing Organization Address [facility] Co de Phone Number [facility]3] [address] [facility] [employer] [place], [place] [id number] * POCT glucose (10/24/2023 9:51 PM FOUNDRY WORKER GENERAL) Glucose, POC 130 70 - 140 mg/dL [facility]3] Comment: For Glucose values <35 mg/dl when Hematocrit is >60 mg/dl,the test may not accurately detect significant hypoglycemia,and testing in the Laboratory should be considered if clinically indicated. Blood 10/24/2023 9:51 PM FOUNDRY WORKER GENERAL 10/24/2023 9:51 PM FOUNDRY WORKER GENERAL Jaqueline Valero MD LAB POCT ORDERABLES - APRIL CE Final Result Performing Organization Address [facility] Co de Phone Number [facility]3] [address] [facility] [employer] [place], [place] [id number] * (ABNORMAL) aPTT (10/24/2023 5:15 PM FOUNDRY WORKER GENERAL) aPTT 45(H) 28 - 38 sec [facility]3] Comment: Interpretive Data Heparin therapeutic range: 66.0 - 100.0 seconds. Range based on correlation with therapeutic heparin activity range of 0.3 - 0.7 Units/mL. Current interpretive data was last revised on 2023. Blood 10/24/2023 5:15 PM FOUNDRY WORKER GENERAL 10/24/2023 5:15 PM FOUNDRY WORKER GENERAL us Jaqueline Valero MD LAB BLOOD ORDERABLES Final Result Performing Organization Address [facility] Co de Phone Number [facility]3] [address] [facility] [employer] [place], [place] [id number] * (ABNORMAL) POCT glucose (10/24/2023 4:42 PM FOUNDRY WORKER GENERAL) Glucose, POC 149(H) 70 - 140 mg/dL [facility]3] Comment: For Glucose values <35 mg/dl when Hematocrit is >60 mg/dl,the test may not accurately detect significant hypoglycemia,and testing in the Laboratory should be considered if clinically indicated. Blood 10/24/2023 4:42 PM FOUNDRY WORKER GENERAL 10/24/2023 4:42 PM FOUNDRY WORKER GENERAL Jaqueline Valero MD LAB POCT ORDERABLES - APRIL CE Final Result Performing Organization Address [facility] de Phone Number [facility]3] [address] [place] [address] * POCT glucose (10/24/2023 12:17 PM FOUNDRY WORKER GENERAL) Glucose, POC 118 70 - 140 mg/dL [facility]3] Comment: For Glucose values <35 mg/dl when Hematocrit is >60 mg/dl,the test may not accurately detect significant hypoglycemia,and testing in the Laboratory should be considered if clinically indicated. Blood 10/24/2023 12:1 7 PM FOUNDRY WORKER GENERAL 10/24/2023 12:17 PM FOUNDRY WORKER GENERAL Jaqueline Valero MD LAB POCT ORDERABLES - APRIL CE Final Result Performing Organization Address [facility] de Phone Number [facility]3] [address] [place] [address] * (ABNORMAL) POCT glucose (10/24/2023 7:44 AM FOUNDRY WORKER GENERAL) Glucose, POC 202(H) 70 - 140 mg/dL [facility]3] Comment: For Glucose values <35 mg/dl when Hematocrit is >60 mg/dl,the test may not accurately detect significant hypoglycemia,and testing in the Laboratory should be considered if clinically indicated. Blood 10/24/2023 7:44 AM FOUNDRY WORKER GENERAL 10/24/2023 7:44 AM FOUNDRY WORKER GENERAL Jaqueline Valero MD LAB POCT ORDERABLES - APRIL CE Final Result Performing Organization Address [facility] de Phone Number [facility])[3] [address] [place] [phone] * XR Chest 1 View - Portable - in AM (10/24/2023 5:54 AM FOUNDRY WORKER GENERAL) Anatomical Region Laterality Modality Body, Chest N/A Computed Radiogr aphy 10/24/2023 10:3 4 AM FOUNDRY WORKER GENERAL Impressions 10/24/2023 10:34 AM FOUNDRY WORKER GENERAL Comparison is made to single view chest [...] Tania Malone M.D. Narrative 10/24/2023 10:34 AM FOUNDRY WORKER GENERAL EXAMINATION: 1 view chest radiograph Procedure Note [...] signed by: Tania Malone M.D. Byron Olvera [employer] IMG XR PROCEDURES Final Result * eGFR (10/24/2023 1:03 AM FOUNDRY WORKER GENERAL) eGFR 5 mL/min/1. 73 m2 [facility] Comment: Interpretive Data Reference Interval [...] last reviewed 2021. Blood 10/24/2023 1:03 AM FOUNDRY WORKER GENERAL 10/24/2023 1:13 AM FOUNDRY WORKER GENERAL us Byron Olvera NP LAB BLOOD ORDERABLES Fi nal Result [facility]3] [address] Department [place] [address] * (ABNORMAL) Protime-INR (10/24/2023 1:03 AM FOUNDRY WORKER GENERAL) PT 18.2(H) 10.3 - 13.7 sec [facility]3] INR 1.60(H) 0.90 - 1.20 [facility]3] Comment: Interpretive data Oral anticoagulant therapeutic ranges: Venous thromboembolism prophylaxis or treatment: 2.0-3.0 CARDIOLOGY Standard range: 2.0-3.0 High-intensity range: 2.5-3.5 Refer to indication-specific guidelines for appropriate target ranges for prosthetic heart valve replacement. Current interpretive data was last revised on 2019. Blood 10/24/2023 1:03 AM FOUNDRY WORKER GENERAL 10/24/2023 1:13 AM FOUNDRY WORKER GENERAL Byron Olvera NP LAB BLOOD ORDERABLES Fi nal Result Performing Organization Address City/[facility]/ZIP Co de Phone Number [facility]3] [address] Department [place] [address] * Magnesium (10/24/2023 1:03 AM FOUNDRY WORKER GENERAL) Pathologist [facility] Magnesium 2.2 1.4 - 2.5 mg/dL [facility]3] Blood 10/24/2023 1:03 AM FOUNDRY WORKER GENERAL 10/24/2023 1:13 AM FOUNDRY WORKER GENERAL Byron Rudi Olvera NP LAB BLOOD ORDERABLES Fi nal Result Performing Organization Address [facility] Co de Phone Number [facility])[3] [address] Department [place] [address] * (ABNORMAL) Renal function panel (10/24/2023 1:03 AM FOUNDRY WORKER GENERAL) Sodium 127(L) 135 - 145 mmol/L [facility]3] Potassium, pl 4.2 3.3 - 4.9 mmol/L [facility]3] Chloride 86(L) 97 - 110 mmol/L [facility]3] CO2 21(L) 22 - 32 mmol/L [facility]3] Anion gap 20(H) 2 - 15 mmol/L [facility]3] BUN 90(H) 6 - 25 mg/dL [facility]3] Creatinine 11.24(H) 0.80 - 1.30 mg/dL [facility]3] Glucose 143 70 - 199 mg/dL [facility]3] Comment: Interpretive Data Fasting glucose >/= 126 [...] 2022. Calcium 8.6 8.5 - 10.3 mg/dL [facility]3] Phosphorus, pl 6.1(H) 2.3 - 4.5 mg/dL [facility]3] Albumin 2.7(L) 3.5 - 5.0 g/dL [facility]3] Blood 10/24/2023 1:03 AM FOUNDRY WORKER GENERAL 10/24/2023 1:13 AM FOUNDRY WORKER GENERAL Byron Olvera NP LAB BLOOD ORDERABLES Fi nal Result Performing Organization Address City/[facility]/ZIP Co de Phone Number [facility])[3] [address] [place] [address] * (ABNORMAL) CBC without differential (10/24/2023 1:03 AM FOUNDRY WORKER GENERAL) WBC 9.3 3.8 - 9.9 K/cumm [facility]3] Hgb 7.6(L) 13.0 - 17.5 g/dL [facility]3] Hct 24.4(L) 38.9 - 50.3 % [facility]3] Plt 184 150 - 400 K/cumm [facility]3] MPV 10.5 9.1 - 12.3 fL [facility]3] RBC 2.58(L) 4.30 - 5.80 M/cumm [facility]3] MCV 94.6 81.3 - 96.4 fL [facility]3] MCH 29.5 27.1 - 33.3 pg [facility]3] MCHC 31.1(L) 32.3 - 35.7 g/dL [facility]3] RDW CV 15.9(H) 11.1 - 14.9 % [facility]3] RDW SD 53.1(H) 35.7 - 48.1 fL [facility]3] NRBC abs 0.00 0.00 - 0.01 K/cumm [facility]3] Blood 10/24/2023 1:03 AM FOUNDRY WORKER GENERAL 10/24/2023 1:13 AM FOUNDRY WORKER GENERAL Byron Olvera NP LAB BLOOD ORDERABLES Fi nal Result [facility]3] [address] [employer] [place], [place] [id number] * POCT glucose (10/23/2023 11:14 PM FOUNDRY WORKER GENERAL) Glucose, POC 128 70 - 140 mg/dL [facility]3] Comment: For Glucose values <35 mg/dl when Hematocrit is >60 mg/dl,the test may not accurately detect significant hypoglycemia,and testing in the Laboratory should be considered if clinically indicated. Blood 10/23/2023 11:1 4 PM FOUNDRY WORKER GENERAL 10/23/2023 11:14 PM FOUNDRY WORKER GENERAL Jaqueline Valero MD LAB POCT ORDERABLES - APRIL CE Final Result Performing Organization Address [facility] Co de Phone Number [facility]3] [address] [facility] [place] [address] * POCT glucose (10/23/2023 10:43 PM FOUNDRY WORKER GENERAL) Glucose, POC 92 70 - 140 mg/dL [facility]3] Comment: For Glucose values <35 mg/dl when Hematocrit is >60 mg/dl,the test may not accurately detect significant hypoglycemia,and testing in the Laboratory should be considered if clinically indicated. Blood 10/23/2023 10:4 3 PM FOUNDRY WORKER GENERAL 10/23/2023 10:43 PM FOUNDRY WORKER GENERAL Jaqueline Valero MD LAB POCT ORDERABLES - APRIL CE Final Result Performing Organization Address [facility] Co de Phone Number [facility]3] [address] [facility] [place] [address] * POCT glucose (10/23/2023 5:12 PM FOUNDRY WORKER GENERAL) Glucose, POC 113 70 - 140 mg/dL [facility]3] Comment: For Glucose values <35 mg/dl when Hematocrit is >60 mg/dl,the test may not accurately detect significant hypoglycemia,and testing in the Laboratory should be considered if clinically indicated. Blood 10/23/2023 5:12 PM FOUNDRY WORKER GENERAL 10/23/2023 5:12 PM FOUNDRY WORKER GENERAL Jaqueline Valero MD LAB POCT ORDERABLES - APRIL CE Final Result Performing Organization Address [facility] de Phone Number [facility]3] [address] [facility] [employer] [place], [place] [phone] * (ABNORMAL) POCT glucose (10/23/2023 12:08 PM FOUNDRY WORKER GENERAL) Glucose, POC 203(H) 70 - 140 mg/dL [facility]3] Comment: For Glucose values <35 mg/dl when Hematocrit is >60 mg/dl,the test may not accurately detect significant hypoglycemia,and testing in the Laboratory should be considered if clinically indicated. Blood 10/23/2023 12:0 8 PM FOUNDRY WORKER GENERAL 10/23/2023 12:08 PM FOUNDRY WORKER GENERAL Jaqueline Valero MD LAB POCT ORDERABLES - APRIL CE Final Result Performing Organization Address [facility] de Phone Number [facility]3] [address] [facility] [place] [address] * (ABNORMAL) POCT glucose (10/23/2023 7:54 AM FOUNDRY WORKER GENERAL) Glucose, POC 205(H) 70 - 140 mg/dL [facility]3] Comment: For Glucose values <35 mg/dl when Hematocrit is >60 mg/dl,the test may not accurately detect significant hypoglycemia,and testing in the Laboratory should be considered if clinically indicated. Blood 10/23/2023 7:54 AM FOUNDRY WORKER GENERAL 10/23/2023 7:54 AM FOUNDRY WORKER GENERAL Jaqueline Valero MD LAB POCT ORDERABLES - APRIL CE Final Result Performing Organization Address [facility] Co de Phone Number [facility]3] [address] [facility] [place] [address] * XR Chest 1 View - Portable - in AM (10/23/2023 6:24 AM FOUNDRY WORKER GENERAL) Anatomical Region Laterality Modality Body, Chest N/A Computed Radiogr aphy 10/23/2023 7:12 AM FOUNDRY WORKER GENERAL Impressions 10/23/2023 7:12 AM FOUNDRY WORKER GENERAL Comparison is made to 10/22/2023. ??There are [...] Manuel Bruno M.D. Narrative 10/23/2023 7:12 AM FOUNDRY WORKER GENERAL Examination: Chest one view Procedure Note Manuel [...] Final Result * eGFR (10/23/2023 1:53 AM FOUNDRY WORKER GENERAL) eGFR 5 mL/min/1. 73 m2 [facility] Comment: Interpretive Data Reference Interval [...] last reviewed 2021. Blood 10/23/2023 1:53 AM FOUNDRY WORKER GENERAL 10/23/2023 2:08 AM FOUNDRY WORKER GENERAL Byron Olvera NP LAB BLOOD ORDERABLES Fi nal Result Performing Organization Address [facility] de Phone Number [facility]3] [address] [place] [address] * (ABNORMAL) Protime-INR (10/23/2023 1:53 AM FOUNDRY WORKER GENERAL) PT 24.9(H) 10.3 - 13.7 sec [facility]3] INR 2.18(H) 0.90 - 1.20 [facility]3] Comment: Interpretive data Oral anticoagulant therapeutic ranges: Venous thromboembolism prophylaxis or treatment: 2.0-3.0 CARDIOLOGY Standard range: 2.0-3.0 High-intensity range: 2.5-3.5 Refer to indication-specific guidelines for appropriate target ranges for prosthetic heart valve replacement. Current interpretive data was last revised on 2019. Blood 10/23/2023 1:53 AM FOUNDRY WORKER GENERAL 10/23/2023 2:08 AM FOUNDRY WORKER GENERAL Byron Olvera NP LAB BLOOD ORDERABLES Fi nal Result Performing Organization Address [facility] de Phone Number [facility]3] [address] [place] [address] * Magnesium (10/23/2023 1:53 AM [employer]OUNDRY WORKER GENERAL) Pathologist [facility] Magnesium 2.4 1.4 - 2.5 mg/dL [facility]3] Blood 10/23/2023 1:53 AM FOUNDRY WORKER GENERAL 10/23/2023 2:08 AM FOUNDRY WORKER GENERAL Byron Olvera NP LAB BLOOD ORDERABLES Fi nal Result [facility]3] [address] [place] [address] * (ABNORMAL) Renal function panel (10/23/2023 1:53 AM FOUNDRY WORKER GENERAL) Pathologist [facility] Sodium 132(L) 135 - 145 mmol/L [facility]3] Potassium, pl 4.3 3.3 - 4.9 mmol/L [facility]3] Chloride 91(L) 97 - 110 mmol/L [facility]3] CO2 20(L) 22 - 32 mmol/L [facility]3] Anion gap 21(H) 2 - 15 mmol/L [facility]3] BUN 91(H) 6 - 25 mg/dL [facility]3] Creatinine 11.59(H) 0.80 - 1.30 mg/dL [facility]3] Glucose 176 70 - 199 mg/dL [facility]3] Comment: Interpretive Data Fasting glucose >/= 126 [...] 2022. Calcium 9.0 8.5 - 10.3 mg/dL [facility]3] Phosphorus, pl 6.2(H) 2.3 - 4.5 mg/dL [facility]3] Albumin 2.6(L) 3.5 - 5.0 g/dL [facility]3] Blood 10/23/2023 1:53 AM FOUNDRY WORKER GENERAL 10/23/2023 2:08 AM [employer]OUNDRY WORKER GENERAL Byron Olvera NP LAB BLOOD ORDERABLES Fi nal Result Performing Organization Address [facility] Co de Phone Number [facility]3] [address] Department [employer] [place], [place] [id number] * (ABNORMAL) CBC without differential (10/23/2023 1:53 AM FOUNDRY WORKER GENERAL) Pathologist [facility] WBC 11.7(H) 3.8 - 9.9 K/cumm [facility]3] Hgb 8.5(L) 13.0 - 17.5 g/dL [facility]3] Hct 27.3(L) 38.9 - 50.3 % [facility]3] Plt 207 150 - 400 K/cumm [facility]3] MPV 10.5 9.1 - 12.3 fL [facility]3] RBC 2.86(L) 4.30 - 5.80 M/cumm [facility]3] MCV 95.5 81.3 - 96.4 fL [facility]3] MCH 29.7 27.1 - 33.3 pg [facility]3] MCHC 31.1(L) 32.3 - 35.7 g/dL [facility]3] RDW CV 15.9(H) 11.1 - 14.9 % [facility]3] RDW SD 53.6(H) 35.7 - 48.1 fL [facility]3] NRBC abs 0.00 0.00 - 0.01 K/cumm [facility]3] Blood 10/23/2023 1:53 AM FOUNDRY WORKER GENERAL 10/23/2023 2:08 AM FOUNDRY WORKER GENERAL Byron Olvera NP LAB BLOOD ORDERABLES Fi nal Result Performing Organization Address [facility] Co de Phone Number [facility]3] [address] Department [employer] [place], [place] [id number] * (ABNORMAL) POCT glucose (10/22/2023 11:55 PM FOUNDRY WORKER GENERAL) Glucose, POC 142(H) 70 - 140 mg/dL [facility]3] Comment: For Glucose values <35 mg/dl when Hematocrit is >60 mg/dl,the test may not accurately detect significant hypoglycemia,and testing in the Laboratory should be considered if clinically indicated. Blood 10/22/2023 11:5 5 PM FOUNDRY WORKER GENERAL 10/22/2023 11:55 PM FOUNDRY WORKER GENERAL Result [facility] Jaqueline Valero MD LAB POCT ORDERABLES - APRIL CE Final Result Performing Organization Address [facility] de Phone Number [facility]3] [address] [facility] [place] [address] * (ABNORMAL) POCT glucose (10/22/2023 9:12 PM FOUNDRY WORKER GENERAL) Glucose, POC 161(H) 70 - 140 mg/dL [facility]3] Comment: For Glucose values <35 mg/dl when Hematocrit is >60 mg/dl,the test may not accurately detect significant hypoglycemia,and testing in the Laboratory should be considered if clinically indicated. Blood 10/22/2023 9:12 PM FOUNDRY WORKER GENERAL 10/22/2023 9:12 PM FOUNDRY WORKER GENERAL Result [facility] Jaqueline Valero MD LAB POCT ORDERABLES - APRIL CE Final Result Performing Organization Address [facility] de Phone Number [facility]3] [address] [facility] [place] [address] * POCT glucose (10/22/2023 5:22 PM FOUNDRY WORKER GENERAL) Glucose, POC 102 70 - 140 mg/dL [facility]3] Comment: For Glucose values <35 mg/dl when Hematocrit is >60 mg/dl,the test may not accurately detect significant hypoglycemia,and testing in the Laboratory should be considered if clinically indicated. Blood 10/22/2023 5:22 PM FOUNDRY WORKER GENERAL 10/22/2023 5:22 PM FOUNDRY WORKER GENERAL Result [facility] Jaqueline Valero MD LAB POCT ORDERABLES - APRIL CE Final Result Performing Organization Address [facility] Co de Phone Number [facility]3] [address] [facility] [place] [address] * (ABNORMAL) POCT glucose (10/22/2023 12:49 PM FOUNDRY WORKER GENERAL) Glucose, POC 177(H) 70 - 140 mg/dL [facility]3] Comment: For Glucose values <35 mg/dl when Hematocrit is >60 mg/dl,the test may not accurately detect significant hypoglycemia,and testing in the Laboratory should be considered if clinically indicated. Blood 10/22/2023 12:4 9 PM FOUNDRY WORKER GENERAL 10/22/2023 12:49 PM [employer]OUNDRY WORKER GENERAL Jaqueline Valero MD LAB POCT ORDERABLES - APRIL CE Final Result Performing Organization Address [facility] de Phone Number [facility]3] [address] [facility] [place] [address] * (ABNORMAL) POCT glucose (10/22/2023 8:12 AM FOUNDRY WORKER GENERAL) Glucose, POC 158(H) 70 - 140 mg/dL [facility]3] Comment: For Glucose values <35 mg/dl when Hematocrit is >60 mg/dl,the test may not accurately detect significant hypoglycemia,and testing in the Laboratory should be considered if clinically indicated. Blood 10/22/2023 8:12 AM FOUNDRY WORKER GENERAL 10/22/2023 8:12 AM FOUNDRY WORKER GENERAL Jaqueline Valero MD LAB POCT ORDERABLES - APRIL CE Final Result Performing Organization Address [facility] Co de Phone Number [facility]3] [address] [place] [address] * XR Chest 1 View - Portable - in AM (10/22/2023 6:38 AM FOUNDRY WORKER GENERAL) Anatomical Region Laterality Modality Body, Chest N/A Computed Radiogr aphy 10/22/2023 8:02 AM FOUNDRY WORKER GENERAL Impressions 10/22/2023 8:02 AM FOUNDRY WORKER GENERAL Comparison is made to single view chest radiograph dated 10/21/2023. ??Sternotomy wires and sternal plates are unchanged. Right internal jugular central venous catheter tip overlies the superior vena cava. Persistent small lung volumes with bilateral subsegmental atelectasis. ??Trace left pleural effusion. ??No pneumothorax. Cardiomediastinal silhouette is stable. Electronically signed by: Tania Malone M.D. Narrative 10/22/2023 8:02 AM FOUNDRY WORKER GENERAL EXAMINATION: 1 view chest radiograph Procedure Note [...] signed by: Tania Malone M.D. Byron Olvera [employer] BROKER IMG XR PROCEDURES Final Result * eGFR (10/22/2023 12:31 AM FOUNDRY WORKER GENERAL) [facility] Signature eGFR 5 mL/min/1. 73 m2 [facility]3] Comment: Interpretive Data Reference Interval Normal ?>/= [...] reviewed 2021. Blood 10/22/2023 12:3 1 AM FOUNDRY WORKER GENERAL 10/22/2023 1:00 AM FOUNDRY WORKER GENERAL Byron Olvera NP LAB BLOOD ORDERABLES Fi nal Result Performing Organization Address [facility] de Phone Number [facility])[3] [address] [place] [address] * (ABNORMAL) Protime-INR (10/22/2023 12:31 AM FOUNDRY WORKER GENERAL) PT 48.4(H) 10.3 - 13.7 sec [facility]3] INR 4.25(H) 0.90 - 1.20 [facility]3] Comment: Interpretive data Oral anticoagulant therapeutic ranges: Venous thromboembolism prophylaxis or treatment: 2.0-3.0 CARDIOLOGY Standard range: 2.0-3.0 High-intensity range: 2.5-3.5 Refer to indication-specific guidelines for appropriate target ranges for prosthetic heart valve replacement. Current interpretive data was last revised on 2019. Blood 10/22/2023 12:3 1 AM FOUNDRY WORKER GENERAL 10/22/2023 1:00 AM FOUNDRY WORKER GENERAL Byron Olvera NP LAB BLOOD ORDERABLES Fi nal Result Performing Organization Address [facility] Co de Phone Number [facility])[3] [address] [employer] [place], [place] [phone] * Magnesium (10/22/2023 12:31 AM FOUNDRY WORKER GENERAL) Magnesium 2.4 1.4 - 2.5 mg/dL [facility]3] Blood 10/22/2023 12:3 1 AM FOUNDRY WORKER GENERAL 10/22/2023 1:00 AM FOUNDRY WORKER GENERAL Byron Olvera [employer] BR[employer]ER LAB BLOOD ORDERABLES Fi nal Result [facility]3] [address] Department [place] [address] * (ABNORMAL) Renal function panel (10/22/2023 12:31 AM FOUNDRY WORKER GENERAL) Pathologist [facility] Sodium 134(L) 135 - 145 mmol/L [facility]3] Potassium, pl 4.3 3.3 - 4.9 mmol/L [facility]3] Chloride 93(L) 97 - 110 mmol/L [facility]3] CO2 21(L) 22 - 32 mmol/L [facility]3] Anion gap 20(H) 2 - 15 mmol/L [facility]3] BUN 87(H) 6 - 25 mg/dL [facility]3] Creatinine 11.33(H) 0.80 - 1.30 mg/dL [facility]3] Glucose 212(H) 70 - 199 mg/dL [facility]3] Comment: Interpretive Data Fasting glucose >/= 126 [...] 2022. Calcium 8.8 8.5 - 10.3 mg/dL [facility]3] Phosphorus, pl 7.3(H) 2.3 - 4.5 mg/dL [facility]3] Albumin 2.8(L) 3.5 - 5.0 g/dL [facility]3] Blood 10/22/2023 12:3 1 AM FOUNDRY WORKER GENERAL 10/22/2023 1:00 AM FOUNDRY WORKER GENERAL Byron Olvera NP LAB BLOOD ORDERABLES Fi nal Result Performing Organization Address [facility]/ZIP Co de Phone Number [facility]3] [address] [place] [address] * (ABNORMAL) CBC without differential (10/22/2023 12:31 AM FOUNDRY WORKER GENERAL) Pathologist [facility] WBC 10.6(H) 3.8 - 9.9 K/cumm [facility]3] Hgb 8.5(L) 13.0 - 17.5 g/dL [facility]3] Hct 27.2(L) 38.9 - 50.3 % [facility]3] Plt 201 150 - 400 K/cumm [facility]3] MPV 11.2 9.1 - 12.3 fL [facility]3] RBC 2.88(L) 4.30 - 5.80 M/cumm [facility]3] MCV 94.4 81.3 - 96.4 fL [facility]3] MCH 29.5 27.1 - 33.3 pg [facility]3] MCHC 31.3(L) 32.3 - 35.7 g/dL [facility]3] RDW CV 15.8(H) 11.1 - 14.9 % [facility]3] RDW SD 54.0(H) 35.7 - 48.1 fL [facility]3] NRBC abs 0.02(H) 0.00 - 0.01 K/cumm [facility]3] Blood 10/22/2023 12:3 1 AM FOUNDRY WORKER GENERAL 10/22/2023 1:00 AM FOUNDRY WORKER GENERAL Byron Olvera NP LAB BLOOD ORDERABLES Fi nal Result Performing Organization Address City/[facility]/ZIP Co de Phone Number [facility]3] [address] [place] [address] * (ABNORMAL) POCT glucose (10/21/2023 9:31 PM FOUNDRY WORKER GENERAL) Pathologist [facility] Glucose, POC 249(H) 70 - 140 mg/dL [facility]3] Comment: For Glucose values <35 mg/dl when Hematocrit is >60 mg/dl,the test may not accurately detect significant hypoglycemia,and testing in the Laboratory should be considered if clinically indicated. Blood 10/21/2023 9:31 PM FOUNDRY WORKER GENERAL 10/21/2023 9:31 PM FOUNDRY WORKER GENERAL Jaqueline Valero MD LAB POCT ORDERABLES - APRIL CE Final Result Performing Organization Address [facility] de Phone Number [facility]3] [address] [facility] [place] [address] * (ABNORMAL) POCT glucose (10/21/2023 5:16 PM FOUNDRY WORKER GENERAL) Glucose, POC 166(H) 70 - 140 mg/dL [facility]3] Comment: For Glucose values <35 mg/dl when Hematocrit is >60 mg/dl,the test may not accurately detect significant hypoglycemia,and testing in the Laboratory should be considered if clinically indicated. Blood 10/21/2023 5:16 PM FOUNDRY WORKER GENERAL 10/21/2023 5:16 PM FOUNDRY WORKER GENERAL Jaqueline Valero MD LAB POCT ORDERABLES - APRIL CE Final Result Performing Organization Address [facility] de Phone Number [facility]3] [address] [place] [address] * (ABNORMAL) POCT glucose (10/21/2023 12:29 PM FOUNDRY WORKER GENERAL) Glucose, POC 266(H) 70 - 140 mg/dL [facility]3] Comment: For Glucose values <35 mg/dl when Hematocrit is >60 mg/dl,the test may not accurately detect significant hypoglycemia,and testing in the Laboratory should be considered if clinically indicated. Blood 10/21/2023 12:2 9 PM FOUNDRY WORKER GENERAL 10/21/2023 12:29 PM FOUNDRY WORKER GENERAL Jaqueline Valero MD LAB POCT ORDERABLES - APRIL CE Final Result Performing Organization Address [facility] Co de Phone Number [facility]3] [address] Department [place] [address] * (ABNORMAL) POCT glucose (10/21/2023 8:06 AM FOUNDRY WORKER GENERAL) Glucose, POC 294(H) 70 - 140 mg/dL [facility] Comment: For Glucose values <35 mg/dl when Hematocrit is >60 mg/dl,the test may not accurately detect significant hypoglycemia,and testing in the Laboratory should be considered if clinically indicated. Blood 10/21/2023 8:06 AM FOUNDRY WORKER GENERAL 10/21/2023 8:06 AM FOUNDRY WORKER GENERAL us Jaqueline Valero MD LAB POCT ORDERABLES - APRIL CE Final Result [facility] [address] Department [place] [address] * XR Chest 1 View - Portable - in AM (10/21/2023 6:51 AM FOUNDRY WORKER GENERAL) Anatomical Region Laterality Modality Body, Chest N/A Computed Radiogr aphy 10/21/2023 7:17 AM FOUNDRY WORKER GENERAL Impressions 10/21/2023 7:17 AM FOUNDRY WORKER GENERAL Small left effusion and bilateral lower lobe atelectasis. Electronically signed by: Eric Cuevas M.D. Narrative 10/21/2023 7:17 AM FOUNDRY WORKER GENERAL EXAMINATION: XR CHEST 1 VIEW DATE: 10/21/2023 [...] by: Eric Cuevas M.D. us Byron Olvera [employer] IMG XR PROCEDURES Final Result * ECG 12 lead (10/21/2023 4:39 AM FOUNDRY WORKER GENERAL) 10/21/2023 4:39 AM FOUNDRY WORKER GENERAL Narrative [facility] - 10/21/2023 8:34 AM FOUNDRY WORKER GENERAL Vent Rate: 100 bpm RR Interval: 599 msec ME Interval: 0 msec QRS Duration: 145 msec QT Interval: 394 msec QTC Interval: 451 msec P-R-T [place]: 0 - -9 - 132 degrees IMPRESSION: NORMAL SINUS RHYTHM [REASON: NORMAL P AXIS, ME, RATE \T\ RHYTHM] LEFT BUNDLE BRANCH BLOCK OCCASIONAL PVC Electronically Signed By: Jesus Huerta MD us Linda Oliva NP ECG ORDERABLES Final Result [facility] [employer] [facility] * eGFR (10/21/2023 1:40 AM FOUNDRY WORKER GENERAL) eGFR 5 mL/min/1. 73 m2 [facility]3] Comment: Interpretive Data Reference Interval Normal ?>/= [...] last reviewed 2021. Blood 10/21/2023 1:40 AM FOUNDRY WORKER GENERAL 10/21/2023 1:59 AM FOUNDRY WORKER GENERAL Byron Olvera NP LAB BLOOD ORDERABLES Fi nal Result Performing Organization Address [facility] Co de Phone Number [facility]3] [address] [place] [address] * (ABNORMAL) Protime-INR (10/21/2023 1:40 AM FOUNDRY WORKER GENERAL) PT 54.3(H) 10.3 - 13.7 sec [facility]3] INR 4.76(H) 0.90 - 1.20 [facility]3] Comment: Interpretive data Oral anticoagulant therapeutic ranges: Venous thromboembolism prophylaxis or treatment: 2.0-3.0 CARDIOLOGY Standard range: 2.0-3.0 High-intensity range: 2.5-3.5 Refer to indication-specific guidelines for appropriate target ranges for prosthetic heart valve replacement. Current interpretive data was last revised on 2019. Blood 10/21/2023 1:40 AM FOUNDRY WORKER GENERAL 10/21/2023 1:58 AM FOUNDRY WORKER GENERAL Byron Olvera NP LAB BLOOD ORDERABLES Fi nal Result Performing Organization Address [facility] Co de Phone Number [facility]3] [address] [place] [address] * Magnesium (10/21/2023 1:40 AM FOUNDRY WORKER GENERAL) Magnesium 2.4 1.4 - 2.5 mg/dL [facility]3] Blood 10/21/2023 1:40 AM FOUNDRY WORKER GENERAL 10/21/2023 1:59 AM FOUNDRY WORKER GENERAL Byron Olvera NP LAB BLOOD ORDERABLES Fi nal Result [facility]3] [address] Department [place] [address] * (ABNORMAL) Renal function panel (10/21/2023 1:40 AM FOUNDRY WORKER GENERAL) Pathologist [facility] Sodium 134(L) 135 - 145 mmol/L [facility]3] Potassium, pl 4.5 3.3 - 4.9 mmol/L [facility]3] Chloride 93(L) 97 - 110 mmol/L [facility]3] CO2 22 22 - 32 mmol/L [facility]3] Anion gap 19(H) 2 - 15 mmol/L [facility]3] BUN 81(H) 6 - 25 mg/dL [facility]3] Creatinine 11.40(H) 0.80 - 1.30 mg/dL [facility]3] Glucose 289(H) 70 - 199 mg/dL [facility]3] Comment: Interpretive Data Fasting glucose >/= 126 [...] 2022. Calcium 8.6 8.5 - 10.3 mg/dL [facility]3] Phosphorus, pl 8.2(H) 2.3 - 4.5 mg/dL [facility]3] Albumin 2.7(L) 3.5 - 5.0 g/dL [facility]3] Blood 10/21/2023 1:40 AM F[employer]DRY WORKER GENERAL 10/21/2023 1:59 AM FOUNDRY WORKER GENERAL Byron Olvera NP LAB BLOOD ORDERABLES Fi nal Result Performing Organization Address [facility] Co de Phone Number [facility])[3] [address] [place] [address] * (ABNORMAL) CBC without differential (10/21/2023 1:40 AM FOUNDRY WORKER GENERAL) [facility] WBC 8.2 3.8 - 9.9 K/cumm [facility]3] Hgb 8.0(L) 13.0 - 17.5 g/dL [facility]3] Hct 25.6(L) 38.9 - 50.3 % [facility]3] Plt 185 150 - 400 K/cumm [facility]3] MPV 11.1 9.1 - 12.3 fL [facility]3] RBC 2.72(L) 4.30 - 5.80 M/cumm [facility]3] MCV 94.1 81.3 - 96.4 fL [facility]3] MCH 29.4 27.1 - 33.3 pg [facility]3] MCHC 31.3(L) 32.3 - 35.7 g/dL [facility]3] RDW CV 16.5(H) 11.1 - 14.9 % [facility]3] RDW SD 55.9(H) 35.7 - 48.1 fL [facility]3] NRBC abs 0.02(H) 0.00 - 0.01 K/cumm [facility]3] Blood 10/21/2023 1:40 AM FOUNDRY WORKER GENERAL 10/21/2023 1:59 AM FOUNDRY WORKER GENERAL Byron Olvera NP LAB BLOOD ORDERABLES Fi nal Result Performing Organization Address [facility] Co de Phone Number [facility]3] [address] [place] [address] * (ABNORMAL) POCT glucose (10/20/2023 9:24 PM FOUNDRY WORKER GENERAL) [facility] Glucose, POC 234(H) 70 - 140 mg/dL [facility]3] Comment: For Glucose values <35 mg/dl when Hematocrit is >60 mg/dl,the test may not accurately detect significant hypoglycemia,and testing in the Laboratory should be considered if clinically indicated. Blood 10/20/2023 9:24 PM FOUNDRY WORKER GENERAL 10/20/2023 9:24 PM FOUNDRY WORKER GENERAL Jaqueline Valero MD LAB POCT ORDERABLES - APRIL CE Final Result Performing Organization Address [facility] Co de Phone Number [facility]3] [address] Department [place] [address] * POCT glucose (10/20/2023 5:24 PM FOUNDRY WORKER GENERAL) [facility] Glucose, POC 89 70 - 140 mg/dL [facility]3] Comment: For Glucose values <35 mg/dl when Hematocrit is >60 mg/dl,the test may not accurately detect significant hypoglycemia,and testing in the Laboratory should be considered if clinically indicated. Blood 10/20/2023 5:24 PM FOUNDRY WORKER GENERAL 10/20/2023 5:24 PM FOUNDRY WORKER GENERAL Jaqueline Valero MD LAB POCT ORDERABLES - APRIL CE Final Result Performing Organization Address [facility] de Phone Number [facility]3] [address] Department [place] [address] * Critical Care (10/20/2023 12:45 PM FOUNDRY WORKER GENERAL) Narrative Kirsten Burns MD - 10/20/2023 12:45 PM FOUNDRY WORKER GENERAL Byron Olvera NP ? 10/21/2023 10:22 AM Critical Care Performed by: Byron Olvera NP Authorized by: Byron Olvera NP ?? CRITICAL CARE: ??Team: ??[facility] ??Shift: ??AM ??Level of Billing: ??Subsequent [...] plan with the patient's team and other medical/lead consultant staff. This time was in addition to and separate from care provided by other practitioners on this day of service. ?? Byron Olvera LOAN BROKER IN CLINIC/BEDSIDE ORDER ROVERTO Final Result * POCT glucose (10/20/2023 11:47 AM FOUNDRY WORKER GENERAL) Glucose, POC 115 70 - 140 mg/dL [facility]3] Comment: For Glucose values <35 mg/dl when Hematocrit is >60 mg/dl,the test may not accurately detect significant hypoglycemia,and testing in the Laboratory should be considered if clinically indicated. Blood 10/20/2023 11:4 7 AM FOUNDRY WORKER GENERAL 10/20/2023 11:47 AM FOUNDRY WORKER GENERAL Jaqueline Valero MD LAB POCT ORDERABLES - APRIL CE Final Result Performing Organization Address [facility] Co de Phone Number [facility]3] [address] [facility] [employer] [place], [place] [id number] * POCT glucose (10/20/2023 10:09 AM FOUNDRY WORKER GENERAL) Glucose, POC 87 70 - 140 mg/dL [facility]3] Comment: For Glucose values <35 mg/dl when Hematocrit is >60 mg/dl,the test may not accurately detect significant hypoglycemia,and testing in the Laboratory should be considered if clinically indicated. Blood 10/20/2023 10:0 9 AM FOUNDRY WORKER GENERAL 10/20/2023 10:09 AM FOUNDRY WORKER GENERAL Jaqueline Valero MD LAB POCT ORDERABLES - APRIL CE Final Result Performing Organization Address [facility] Co de Phone Number [facility]3] [address] [facility] [place] [address] * POCT glucose (10/20/2023 9:15 AM FOUNDRY WORKER GENERAL) Glucose, POC 102 70 - 140 mg/dL [facility]3] Comment: For Glucose values <35 mg/dl when Hematocrit is >60 mg/dl,the test may not accurately detect significant hypoglycemia,and testing in the Laboratory should be considered if clinically indicated. Blood 10/20/2023 9:15 AM FOUNDRY WORKER GENERAL 10/20/2023 9:15 AM FOUNDRY WORKER GENERAL Jaqueline Valero MD LAB POCT ORDERABLES - APRIL CE Final Result Performing Organization Address [facility] Co de Phone Number [facility]3] [address] Department [place] [address] * POCT glucose (10/20/2023 7:23 AM FOUNDRY WORKER GENERAL) [facility] Glucose, POC 109 70 - 140 mg/dL [facility]3] Comment: For Glucose values <35 mg/dl when Hematocrit is >60 mg/dl,the test may not accurately detect significant hypoglycemia,and testing in the Laboratory should be considered if clinically indicated. Blood 10/20/2023 7:23 AM FOUNDRY WORKER GENERAL 10/20/2023 7:23 AM FOUNDRY WORKER GENERAL Jaqueline Valero MD LAB POCT ORDERABLES - APRIL CE Final Result Performing Organization Address [facility] de Phone Number [facility]3] [address] [place] [address] * XR Chest 1 View - Portable - in AM (10/20/2023 6:37 AM FOUNDRY WORKER GENERAL) Anatomical Region Laterality Modality Body, Chest N/A Computed Radiogr aphy 10/20/2023 7:51 AM FOUNDRY WORKER GENERAL Impressions 10/20/2023 7:51 AM FOUNDRY WORKER GENERAL Comparison is made to prior chest radiograph(s) [...] Vicki Suh M.D. Narrative 10/20/2023 7:51 AM FOUNDRY WORKER GENERAL EXAMINATION: XR CHEST 1 VIEW Procedure Note [...] signed by: Vicki Suh M.D. Byron Olvera LOAN BROKER IMG XR PROCEDURES Final Result * POCT glucose (10/20/2023 6:12 AM FOUNDRY WORKER GENERAL) Glucose, POC 119 70 - 140 mg/dL [facility]3] Comment: For Glucose values <35 mg/dl when Hematocrit is >60 mg/dl,the test may not accurately detect significant hypoglycemia,and testing in the Laboratory should be considered if clinically indicated. Blood 10/20/2023 6:12 AM FOUNDRY WORKER GENERAL 10/20/2023 6:12 AM FOUNDRY WORKER GENERAL Result [facility] Jaqueline Valero MD LAB POCT ORDERABLES - APRIL CE Final Result Performing Organization Address [facility] Co de Phone Number [facility]3] [address] [place] [address] * (ABNORMAL) POCT glucose (10/20/2023 3:57 AM FOUNDRY WORKER GENERAL) Glucose, POC 153(H) 70 - 140 mg/dL [facility]3] Comment: For Glucose values <35 mg/dl when Hematocrit is >60 mg/dl,the test may not accurately detect significant hypoglycemia,and testing in the Laboratory should be considered if clinically indicated. Blood 10/20/2023 3:57 AM FOUNDRY WORKER GENERAL 10/20/2023 3:57 AM FOUNDRY WORKER GENERAL Jaqueline Valero MD LAB POCT ORDERABLES - APRIL CE Final Result Performing Organization Address [facility]/ZIP Co de Phone Number [facility]3] [address] [place] [address] * Oxyhemoglobin, central venous (10/20/2023 3:22 AM FOUNDRY WORKER GENERAL) [facility] Oxyhemoglobin, CV 70.0 % [facility]3] Comment: Interpretive Data No reference range established. Current interpretive data was last revised 2019. Blood 10/20/2023 3:22 AM FOUNDRY WORKER GENERAL 10/20/2023 3:26 AM FOUNDRY WORKER GENERAL Gamal Fox LOAN BROKER LAB BLOOD ORDERABLES Final Result Performing Organization Address [facility] Co de Phone Number [facility])[3] [address] [place] [address] * (ABNORMAL) aPTT (10/20/2023 3:22 AM FOUNDRY WORKER GENERAL) [facility] aPTT 114(H) 28 - 38 sec [facility]3] Comment: Interpretive Data Heparin therapeutic range: 66.0 - 100.0 seconds. Range based on correlation with therapeutic heparin activity range of 0.3 - 0.7 Units/mL. Current interpretive data was last revised on 2023. Blood 10/20/2023 3:22 AM FOUNDRY WORKER GENERAL 10/20/2023 3:28 AM FOUNDRY WORKER GENERAL Narrative [facility]3] - 10/20/2023 4:12 AM FOUNDRY WORKER GENERAL Draw STAT PTT 6 hrs after initiation of heparin infusion, draw STAT PTT 6 hours after each dose change, and every 6 hours until 2 consecutive PTTs are within therapeutic range. Once two consecutive PTT's are therapeutic (66-100 seconds), then draw PTT every AM until heparin is discontinued. Byron Olvera LOAN BROKER LAB BLOOD ORDERABLES Fi nal Result Performing Organization Address City/[facility]/ZIP Co de Phone Number [facility]3] [address] [facility] [place] [address] * (ABNORMAL) POCT glucose (10/20/2023 3:21 AM FOUNDRY WORKER GENERAL) [facility] Glucose, POC 156(H) 70 - 140 mg/dL [facility]3] Comment: For Glucose values <35 mg/dl when Hematocrit is >60 mg/dl,the test may not accurately detect significant hypoglycemia,and testing in the Laboratory should be considered if clinically indicated. Blood 10/20/2023 3:21 AM FOUNDRY WORKER GENERAL 10/20/2023 3:21 AM FOUNDRY WORKER GENERAL Jaqueline Valero MD LAB POCT ORDERABLES - APRIL CE Final Result Performing Organization Address [facility] de Phone Number [facility])[3] [address] [facility] [place] [address] * (ABNORMAL) POCT glucose (10/20/2023 2:10 AM FOUNDRY WORKER GENERAL) Glucose, POC 164(H) 70 - 140 mg/dL [facility]3] Comment: For Glucose values <35 mg/dl when Hematocrit is >60 mg/dl,the test may not accurately detect significant hypoglycemia,and testing in the Laboratory should be considered if clinically indicated. Blood 10/20/2023 2:10 AM FOUNDRY WORKER GENERAL 10/20/2023 2:10 AM FOUNDRY WORKER GENERAL Result [facility] Jaqueline Valero MD LAB POCT ORDERABLES - APRIL CE Final Result Performing Organization Address [facility] de Phone Number [facility]3] [address] [facility] [employer] [place] [address] * POCT glucose (10/20/2023 12:57 AM FOUNDRY WORKER GENERAL) Glucose, POC 119 70 - 140 mg/dL [facility]3] Comment: For Glucose values <35 mg/dl when Hematocrit is >60 mg/dl,the test may not accurately detect significant hypoglycemia,and testing in the Laboratory should be considered if clinically indicated. Blood 10/20/2023 12:5 7 AM FOUNDRY WORKER GENERAL 10/20/2023 12:57 AM FOUNDRY WORKER GENERAL Result [facility] Jaqueline Valero MD LAB POCT ORDERABLES - APRIL CE Final Result Performing Organization Address [facility] Co de Phone Number [facility]3] [address] [place] [address] * eGFR (10/20/2023 12:21 AM FOUNDRY WORKER GENERAL) Pathologist [facility] eGFR 5 mL/min/1. 73 m2 [facility]3] Comment: Interpretive Data Reference Interval Normal ?>/= [...] reviewed 2021. Blood 10/20/2023 12:2 1 AM FOUNDRY WORKER GENERAL 10/20/2023 12:43 AM FOUNDRY WORKER GENERAL Dawna Castellanos LOAN BROKER LAB BLOOD ORDERABLES Ann Marie l Result Performing Organization Address [facility] Co de Phone Number [facility]3] [address] [place] [address] * Oxyhemoglobin, central venous (10/20/2023 12:21 AM FOUNDRY WORKER GENERAL) [facility] Oxyhemoglobin, CV 51.0 % [facility]3] Comment: Interpretive Data No reference range established. Current interpretive data was last revised 2019. Blood 10/20/2023 12:2 1 AM FOUNDRY WORKER GENERAL 10/20/2023 12:35 AM FOUNDRY WORKER GENERAL Dawna Castellanos LOAN BROKER LAB BLOOD ORDERABLES Ann Marie l Result Performing Organization Address [facility] Co de Phone Number [facility]3] [address] [place] [address] * (ABNORMAL) Protime-INR (10/20/2023 12:21 AM FOUNDRY WORKER GENERAL) Pathologist [facility] PT 25.5(H) 10.3 - 13.7 sec [facility]3] INR 2.24(H) 0.90 - 1.20 [facility]3] Comment: Interpretive data Oral anticoagulant therapeutic ranges: Venous thromboembolism prophylaxis or treatment: 2.0-3.0 CARDIOLOGY Standard range: 2.0-3.0 High-intensity range: 2.5-3.5 Refer to indication-specific guidelines for appropriate target ranges for prosthetic heart valve replacement. Current interpretive data was last revised on 2019. Blood 10/20/2023 12:2 1 AM FOUNDRY WORKER GENERAL 10/20/2023 12:43 AM FOUNDRY WORKER GENERAL Byron Olvera LOAN BROKER LAB BLOOD ORDERABLES Fi nal Result Performing Organization Address [facility] Co de Phone Number [facility]3] [address] Department [place] [address] * Magnesium (10/20/2023 12:21 AM FOUNDRY WORKER GENERAL) Pathologist [facility] Magnesium 2.4 1.4 - 2.5 mg/dL [facility]3] Blood 10/20/2023 12:2 1 AM FOUNDRY WORKER GENERAL 10/20/2023 12:43 AM FOUNDRY WORKER GENERAL Byron Olvera LOAN BROKER LAB BLOOD ORDERABLES Fi nal Result Performing Organization Address City/[facility]/ZIP Co de Phone Number [facility]3] [address] Department [place] [address] * (ABNORMAL) Calcium, ionized (10/20/2023 12:21 AM FOUNDRY WORKER GENERAL) Pathologist [facility] Calcium, Ionized 4.38(L) 4.50 - 5.10 mg/dL [facility]3] Blood 10/20/2023 12:2 1 AM FOUNDRY WORKER GENERAL 10/20/2023 12:35 AM FOUNDRY WORKER GENERAL Byron Olvera LOAN BROKER LAB BLOOD ORDERABLES Fi nal Result Performing Organization Address [facility] Co de Phone Number [facility]3] [address] Department [place] [address] * (ABNORMAL) Renal function panel (10/20/2023 12:21 AM FOUNDRY WORKER GENERAL) [facility] Sodium 137 135 - 145 mmol/L [facility]3] Potassium, pl 4.4 3.3 - 4.9 mmol/L [facility]3] Chloride 96(L) 97 - 110 mmol/L [facility]3] CO2 21(L) 22 - 32 mmol/L [facility]3] Anion gap 20(H) 2 - 15 mmol/L [facility]3] BUN 77(H) 6 - 25 mg/dL [facility]3] Creatinine 11.28(H) 0.80 - 1.30 mg/dL [facility]3] Glucose 105 70 - 199 mg/dL [facility]3] Comment: Interpretive Data Fasting glucose >/= 126 [...] 2022. Calcium 8.9 8.5 - 10.3 mg/dL [facility]3] Phosphorus, pl 8.9(H) 2.3 - 4.5 mg/dL [facility]3] Albumin 2.8(L) 3.5 - 5.0 g/dL [facility]3] Blood 10/20/2023 12:2 1 AM FOUNDRY WORKER GENERAL 10/20/2023 12:43 AM FOUNDRY WORKER GENERAL Byron Olvera LOAN BROKER LAB BLOOD ORDERABLES Fi nal Result Performing Organization Address [facility]/ZIP Co de Phone Number [facility])[3] [address] [place] [address] * (ABNORMAL) CBC without differential (10/20/2023 12:21 AM FOUNDRY WORKER GENERAL) WBC 8.8 3.8 - 9.9 K/cumm [facility]3] Hgb 8.3(L) 13.0 - 17.5 g/dL [facility]3] Hct 26.2(L) 38.9 - 50.3 % [facility]3] Plt 149(L) 150 - 400 K/cumm [facility]3] MPV 11.1 9.1 - 12.3 fL [facility]3] RBC 2.76(L) 4.30 - 5.80 M/cumm [facility]3] MCV 94.9 81.3 - 96.4 fL [facility]3] MCH 30.1 27.1 - 33.3 pg [facility]3] MCHC 31.7(L) 32.3 - 35.7 g/dL [facility]3] RDW CV 16.5(H) 11.1 - 14.9 % [facility]3] RDW SD 56.3(H) 35.7 - 48.1 fL [facility]3] NRBC abs 0.00 0.00 - 0.01 K/cumm [facility]3] Blood 10/20/2023 12:2 1 AM FOUNDRY WORKER GENERAL 10/20/2023 12:43 AM FOUNDRY WORKER GENERAL Byron Olvera NP LAB BLOOD ORDERABLES Fi nal Result Performing Organization Address City/[facility]/ZIP Co de Phone Number [facility]3] [address] [place] [address] * POCT glucose (10/20/2023 12:20 AM FOUNDRY WORKER GENERAL) Glucose, POC 111 70 - 140 mg/dL [facility]3] Comment: For Glucose values <35 mg/dl when Hematocrit is >60 mg/dl,the test may not accurately detect significant hypoglycemia,and testing in the Laboratory should be considered if clinically indicated. Blood 10/20/2023 12:2 0 AM FOUNDRY WORKER GENERAL 10/20/2023 12:20 AM FOUNDRY WORKER GENERAL Jaqueline Valero MD LAB POCT ORDERABLES - APRIL CE Final Result Performing Organization Address [facility] Co de Phone Number [facility])[3] [address] [facility] [place] [address] * POCT glucose (10/19/2023 11:03 PM FOUNDRY WORKER GENERAL) Glucose, POC 111 70 - 140 mg/dL [facility]3] Comment: For Glucose values <35 mg/dl when Hematocrit is >60 mg/dl,the test may not accurately detect significant hypoglycemia,and testing in the Laboratory should be considered if clinically indicated. Blood 10/19/2023 11:0 3 PM FOUNDRY WORKER GENERAL 10/19/2023 11:03 PM FOUNDRY WORKER GENERAL Jaqueline Valero MD LAB POCT ORDERABLES - APRIL CE Final Result Performing Organization Address [facility] Co de Phone Number [facility])[3] [address] [facility] [place] [address] * POCT glucose (10/19/2023 10:01 PM FOUNDRY WORKER GENERAL) Glucose, POC 120 70 - 140 mg/dL [facility]3] Comment: For Glucose values <35 mg/dl when Hematocrit is >60 mg/dl,the test may not accurately detect significant hypoglycemia,and testing in the Laboratory should be considered if clinically indicated. Blood 10/19/2023 10:0 1 PM FOUNDRY WORKER GENERAL 10/19/2023 10:01 PM FOUNDRY WORKER GENERAL Jaqueline Valero MD LAB POCT ORDERABLES - APRIL CE Final Result Performing Organization Address [facility] Co de Phone Number [facility])[3] [address] [place] [address] * (ABNORMAL) aPTT (10/19/2023 9:47 PM FOUNDRY WORKER GENERAL) aPTT 94(H) 28 - 38 sec [facility]3] Comment: Interpretive Data Heparin therapeutic range: 66.0 - 100.0 seconds. Range based on correlation with therapeutic heparin activity range of 0.3 - 0.7 Units/mL. Current interpretive data was last revised on 2023. Blood 10/19/2023 9:47 PM FOUNDRY WORKER GENERAL 10/19/2023 9:54 PM FOUNDRY WORKER GENERAL Narrative [facility]3] - 10/19/2023 10:17 PM FOUNDRY WORKER GENERAL Draw STAT PTT 6 hrs after initiation of heparin infusion, draw STAT PTT 6 hours after each dose change, and every 6 hours until 2 consecutive PTTs are within therapeutic range. Once two consecutive PTT's are therapeutic (66-100 seconds), then draw PTT every AM until heparin is discontinued. Byron Olvera NP LAB BLOOD ORDERABLES Fi nal Result Performing Organization Address [facility] de Phone Number [facility] [facility] [address] Department [place] [address] * (ABNORMAL) POCT glucose (10/19/2023 9:15 PM FOUNDRY WORKER GENERAL) Glucose, POC 143(H) 70 - 140 mg/dL [facility]3] Comment: For Glucose values <35 mg/dl when Hematocrit is >60 mg/dl,the test may not accurately detect significant hypoglycemia,and testing in the Laboratory should be considered if clinically indicated. Blood 10/19/2023 9:15 PM [employer]OUNDRY WORKER GENERAL 10/19/2023 9:15 PM [employer]OUNDRY WORKER GENERAL Jaqueline Valero MD LAB POCT ORDERABLES - APRIL CE Final Result Performing Organization Address [facility] de Phone Number [facility]3] [address] [facility] [employer] [place] [address] * (ABNORMAL) POCT glucose (10/19/2023 8:12 PM [employer]OUN[employer] WORKER GENERAL) Glucose, POC 156(H) 70 - 140 mg/dL [facility]3] Comment: For Glucose values <35 mg/dl when Hematocrit is >60 mg/dl,the test may not accurately detect significant hypoglycemia,and testing in the Laboratory should be considered if clinically indicated. Blood 10/19/2023 8:12 PM [employer] WORKER GENERAL 10/19/2023 8:12 PM [employer]DR[employer] WORKER GENERAL Jaqueline Valero MD LAB POCT ORDERABLES - APRIL CE Final Result Performing Organization Address [facility] de Phone Number [facility])[3] [address] [facility] [employer] [place] [address] * POCT glucose (10/19/2023 6:13 PM FOUNDR[employer] WORKER GENERAL) Glucose, POC 94 70 - 140 mg/dL [facility]3] Comment: For Glucose values <35 mg/dl when Hematocrit is >60 mg/dl,the test may not accurately detect significant hypoglycemia,and testing in the Laboratory should be considered if clinically indicated. Blood 10/19/2023 6:13 PM [employer] WORKER GENERAL 10/19/2023 6:13 PM [employer]DR[employer] WORKER GENERAL Jaqueline Valero MD LAB POCT ORDERABLES - APRIL CE Final Result Performing Organization Address [facility] de Phone Number [facility])[3] [address] [facility] [employer] [place] [address] * POCT glucose (10/19/2023 5:24 PM FOUN[employer] WORKER GENERAL) Glucose, POC 90 70 - 140 mg/dL [facility]3] Comment: For Glucose values <35 mg/dl when Hematocrit is >60 mg/dl,the test may not accurately detect significant hypoglycemia,and testing in the Laboratory should be considered if clinically indicated. Blood 10/19/2023 5:24 PM [employer]OUNDR[employer] WORKER GENERAL 10/19/2023 5:24 PM FOUNDRY WORKER GENERAL us Jaqueline Valero MD LAB POCT ORDERABLES - APRIL CE Final Result [facility] [address] [place] [address] * XR Chest 1 View (10/19/2023 4:29 PM FOUNDRY WORKER GENERAL) Anatomical Region Laterality Modality Body, Chest N/A Computed Radiogr aphy 10/19/2023 4:32 PM [employer]OUNDRY WORKER GENERAL Impressions 10/19/2023 4:32 PM FOUNDRY WORKER GENERAL Comparison made to radiograph 10/19/2023. Right internal [...] Trace Barrow M.D. Narrative 10/19/2023 4:32 PM FOUNDRY WORKER GENERAL EXAMINATION: XR CHEST 1 VIEW HISTORY: ??Chest [...] by: Trace Barrow M.D. us Dawna Castellanos [employer] BR[employer]ER IMG XR PROCEDURES Final R esult * POCT glucose (10/19/2023 4:25 PM FOUNDRY WORKER GENERAL) Glucose, POC 113 70 - 140 mg/dL [facility]3] Comment: For Glucose values <35 mg/dl when Hematocrit is >60 mg/dl,the test may not accurately detect significant hypoglycemia,and testing in the Laboratory should be considered if clinically indicated. Blood 10/19/2023 4:25 PM FOUNDRY WORKER GENERAL 10/19/2023 4:25 PM FOUNDRY WORKER GENERAL Jaqueline Valero MD LAB POCT ORDERABLES - APRIL CE Final Result Performing Organization Address [facility] Co de Phone Number [facility]3] [address] [place] [address] * ECG 12 lead (10/19/2023 3:21 PM FOUNDRY WORKER GENERAL) 10/19/2023 3:21 PM [employer]OUNDRY WORKER GENERAL Narrative [facility] - 10/20/2023 9:37 AM FOUNDRY WORKER GENERAL Vent Rate: 78 bpm RR Interval: 769 msec ME Interval: 264 msec QRS Duration: 145 msec QT Interval: 426 msec QTC Interval: 459 msec P-R-T [place]: 47 - -19 - 115 degrees IMPRESSION: PROBABLE SINUS RHYTHM WITH FIRST DEGREE AV BLOCK FREQUENT SUPRAVENTRICULAR PREMATURE COMPLEXES IN A BIGEMINAL PATTERN INTRAVENTRICULAR CONDUCTION DELAY NONSPECIFIC T-WAVE CHANGES ABNORMAL ECG Electronically Signed By: Abelardo Randle MD Dawna Castellanos [employer]ER ECG ORDERABLES Final Res ult Performing Organization Address [facility] Co de Phone Number [facility] [employer] [facility] * XR Kub (10/19/2023 2:49 PM FOUNDRY WORKER GENERAL) Anatomical Region Laterality Modality Body, Abdomen N/A Computed Radiogr aphy 10/19/2023 3:00 PM FOUNDRY WORKER GENERAL Impressions 10/19/2023 3:00 PM FOUNDRY WORKER GENERAL FINDINGS/IMPRESSION: Postsurgical changes in the chest. ??Epicardial pacer wires overlie the abdomen and chest. ??Chest tube/mediastinal drains overlie the abdomen. ??Nguyen catheter superimposes the expected location of the urinary bladder. There is no dilatation of small or large bowel seen, although exam is limited secondary to body habitus. Electronically signed by: Nona Carrillo DO Narrative 10/19/2023 3:00 PM FOUNDRY WORKER GENERAL EXAM: ??XR KUB, 10/19/2023 1:50 PM HISTORY: [...] Result * (ABNORMAL) aPTT (10/19/2023 2:44 PM FOUNDRY WORKER GENERAL) aPTT 59(H) 28 - 38 sec [facility] Comment: Interpretive Data Heparin therapeutic range: 66.0 - 100.0 seconds. Range based on correlation with therapeutic heparin activity range of 0.3 - 0.7 Units/mL. Current interpretive data was last revised on 2023. Blood 10/19/2023 2:44 PM FOUNDRY WORKER GENERAL 10/19/2023 2:48 PM FOUNDRY WORKER GENERAL Narrative [facility] - 10/19/2023 3:02 PM FOUNDRY WORKER GENERAL Draw STAT PTT 6 hrs after initiation of heparin infusion, draw STAT PTT 6 hours after each dose change, and every 6 hours until 2 consecutive PTTs are within therapeutic range. Once two consecutive PTT's are therapeutic (66-100 seconds), then draw PTT every AM until heparin is discontinued. us Byron Olvera NP LAB BLOOD ORDERABLES Fi nal Result [facility] [address] Department [place] [employer] [place] [address] [phone] * (ABNORMAL) Hepatic function panel (10/19/2023 2:44 PM FOUNDRY WORKER GENERAL) [facility] Bilirubin, total 0.3 0.1 - 1.2 mg/dL [facility]3] Bilirubin, direct <0.2 0.1 - 0.3 mg/dL [facility]3] Protein, pl 5.2(L) 6.5 - 8.5 g/dL [facility]3] Albumin 3.0(L) 3.5 - 5.0 g/dL [facility]3] Alk phos 104 40 - 130 Units/L [facility]3] ALT 9 7 - 55 Units/L [facility]3] AST 39 10 - 50 Units/L [facility]3] Blood 10/19/2023 2:44 PM FOUNDRY WORKER GENERAL 10/19/2023 2:48 PM FOUNDRY WORKER GENERAL Kirsten Burns MD LAB BLOOD ORDERABLES Fin al Result Performing Organization Address [facility]/ZIP Co de Phone Number [facility])[3] [address] [facility] [employer] [place] [address] * (ABNORMAL) Lipase (10/19/2023 2:44 PM FOUNDRY WORKER GENERAL) [facility] Lipase 7(L) 10 - 99 Units/L [facility]3] Blood 10/19/2023 2:44 PM FOUNDRY WORKER GENERAL 10/19/2023 2:48 PM FOUNDRY WORKER GENERAL Kirsten Burns MD LAB BLOOD ORDERABLES Fin al Result Performing Organization Address City/[facility]/ZIP Co de Phone Number [facility])[3] [address] [facility] [employer] [place] [address] * (ABNORMAL) Amylase (10/19/2023 2:44 PM FOUNDRY WORKER GENERAL) [facility] Amylase <3(L) 30 - 99 Units/L [facility]3] Blood 10/19/2023 2:44 PM FOUNDRY WORKER GENERAL 10/19/2023 2:48 PM FOUNDRY WORKER GENERAL Kirsten Burns MD LAB BLOOD ORDERABLES Fin al Result Performing Organization Address [facility] Co de Phone Number [facility])[3] [address] [facility] [employer] [place], [place] [id number] * (ABNORMAL) POCT glucose (10/19/2023 2:40 PM FOUNDRY WORKER GENERAL) Glucose, POC 195(H) 70 - 140 mg/dL [facility]3] Comment: For Glucose values <35 mg/dl when Hematocrit is >60 mg/dl,the test may not accurately detect significant hypoglycemia,and testing in the Laboratory should be considered if clinically indicated. Blood 10/19/2023 2:40 PM FOUNDRY WORKER GENERAL 10/19/2023 2:40 PM FOUNDRY WORKER GENERAL Jaqueline Valero MD LAB POCT ORDERABLES - APRIL CE Final Result Performing Organization Address [facility] de Phone Number [facility])[3] [address] [facility] [employer] [place] [address] * POCT glucose (10/19/2023 12:25 PM FOUNDRY WORKER GENERAL) Glucose, POC 114 70 - 140 mg/dL [facility]3] Comment: For Glucose values <35 mg/dl when Hematocrit is >60 mg/dl,the test may not accurately detect significant hypoglycemia,and testing in the Laboratory should be considered if clinically indicated. Blood 10/19/2023 12:2 5 PM FOUNDRY WORKER GENERAL 10/19/2023 12:25 PM FOUNDRY WORKER GENERAL Jaqueline Valero MD LAB POCT ORDERABLES - APRIL CE Final Result Performing Organization Address [facility] Co de Phone Number [facility])[3] [address] [facility] [employer] [place], [place] [id number] * POCT glucose (10/19/2023 11:12 AM FOUNDRY WORKER GENERAL) Glucose, POC 116 70 - 140 mg/dL [facility]3] Comment: For Glucose values <35 mg/dl when Hematocrit is >60 mg/dl,the test may not accurately detect significant hypoglycemia,and testing in the Laboratory should be considered if clinically indicated. Blood 10/19/2023 11:1 2 AM FOUNDRY WORKER GENERAL 10/19/2023 11:12 AM FOUNDRY WORKER GENERAL Jaqueline Valero MD LAB POCT ORDERABLES - APRIL CE Final Result Performing Organization Address [facility] de Phone Number [facility])[3] [address] [place] [address] * (ABNORMAL) POCT glucose (10/19/2023 10:54 AM FOUNDRY WORKER GENERAL) Glucose, POC 57(L) 70 - 140 mg/dL [facility]3] Comment: For Glucose values <35 mg/dl when Hematocrit is >60 mg/dl,the test may not accurately detect significant hypoglycemia,and testing in the Laboratory should be considered if clinically indicated. Blood 10/19/2023 10:5 4 AM FOUNDRY WORKER GENERAL 10/19/2023 10:54 AM FOUNDRY WORKER GENERAL Jaqueline Valero MD LAB POCT ORDERABLES - APRIL CE Final Result Performing Organization Address [facility] de Phone Number [facility])[3] [address] [place] [address] * POCT glucose (10/19/2023 9:04 AM FOUNDRY WORKER GENERAL) Glucose, POC 82 70 - 140 mg/dL [facility]3] Comment: For Glucose values <35 mg/dl when Hematocrit is >60 mg/dl,the test may not accurately detect significant hypoglycemia,and testing in the Laboratory should be considered if clinically indicated. Blood 10/19/2023 9:04 AM FOUNDRY WORKER GENERAL 10/19/2023 9:04 AM FOUNDRY WORKER GENERAL Jaqueline Valero MD LAB POCT ORDERABLES - APRIL CE Final Result Performing Organization Address [facility] de Phone Number [facility])[3] [address] [place] [address] * (ABNORMAL) aPTT (10/19/2023 8:58 AM FOUNDRY WORKER GENERAL) aPTT 46(H) 28 - 38 sec [facility]3] Comment: Interpretive Data Heparin therapeutic range: 66.0 - 100.0 seconds. Range based on correlation with therapeutic heparin activity range of 0.3 - 0.7 Units/mL. Current interpretive data was last revised on 2023. Blood 10/19/2023 8:58 AM FOUNDRY WORKER GENERAL 10/19/2023 9:28 AM FOUNDRY WORKER GENERAL Narrative [facility]3] - 10/19/2023 9:51 AM FOUNDRY WORKER GENERAL Draw STAT PTT 6 hrs after initiation of heparin infusion, draw STAT PTT 6 hours after each dose change, and every 6 hours until 2 consecutive PTTs are within therapeutic range. Once two consecutive PTT's are therapeutic (66-100 seconds), then draw PTT every AM until heparin is discontinued. Byron Olvera LOAN BROKER LAB BLOOD ORDERABLES Fi nal Result Performing Organization Address [facility]/ZIP Co de Phone Number [facility])[3] [address] [place] [address] * Oxyhemoglobin, central venous (10/19/2023 8:58 AM FOUNDRY WORKER GENERAL) Pathologist [facility] Oxyhemoglobin, CV 70.1 % [facility]3] Comment: Interpretive Data No reference range established. Current interpretive data was last revised 2019. Blood 10/19/2023 8:58 AM FOUNDRY WORKER GENERAL 10/19/2023 9:16 AM FOUNDRY WORKER GENERAL Narrative [facility] - 10/19/2023 9:17 AM FOUNDRY WORKER GENERAL While on [facility] Dawna Castellanos LOAN BROKER LAB BLOOD ORDERABLES Ann Marie l Result [facility]3] [address] [place] [address] * (ABNORMAL) POCT glucose (10/19/2023 7:19 AM FOUNDRY WORKER GENERAL) Glucose, POC 150(H) 70 - 140 mg/dL [facility]3] Comment: For Glucose values <35 mg/dl when Hematocrit is >60 mg/dl,the test may not accurately detect significant hypoglycemia,and testing in the Laboratory should be considered if clinically indicated. Blood 10/19/2023 7:19 AM FOUNDRY WORKER GENERAL 10/19/2023 7:19 AM FOUNDRY WORKER GENERAL Jaqueline Valero MD LAB POCT ORDERABLES - APRIL CE Final Result Performing Organization Address [facility] Co de Phone Number [facility])[3] [address] Department [employer] [place], [place] [id number] * Lactate (10/19/2023 7:09 AM FOUNDRY WORKER GENERAL) [facility] Lactate 1.4 0.7 - 2.0 mmol/L [facility]3] Blood 10/19/2023 7:09 AM FOUNDRY WORKER GENERAL 10/19/2023 7:22 AM FOUNDRY WORKER GENERAL Dawna Castellanos [employer]ER LAB BLOOD ORDERABLES Ann Marie l Result Performing Organization Address [facility] Co de Phone Number [facility])[3] [address] [place] [address] * Oxyhemoglobin, central venous (10/19/2023 7:09 AM FOUNDRY WORKER GENERAL) [facility] Oxyhemoglobin, CV 96.5 % [facility]3] Comment: Interpretive Data No reference range established. Current interpretive data was last revised 2019. Blood 10/19/2023 7:09 AM FOUNDRY WORKER GENERAL 10/19/2023 7:22 AM FOUNDRY WORKER GENERAL Narrative [facility]3] - 10/19/2023 7:24 AM FOUNDRY WORKER GENERAL While on [facility] Dawna Castellanos [employer] BR[employer]ER LAB BLOOD ORDERABLES Ann Marie l Result Performing Organization Address [facility] Co de Phone Number [facility])[3] [address] [place] [address] * Critical Care (10/19/2023 6:57 AM FOUNDRY WORKER GENERAL) Narrative Kirsten Burns MD - 10/19/2023 6:57 AM FOUNDRY WORKER GENERAL Dawna Castellanos NP ? 10/19/2023 ??2:12 PM Critical Care Performed by: Dawna Castellanos NP Authorized by: Dawna Castellanos NP ?? CRITICAL CARE: ??Team: ??[facility] ??Shift: ??AM ??Level of Billing: ??Critical [...] plan with the ICU team and other medical/lead consultant staff, making frequent assessments and decisions [...] * (ABNORMAL) POCT glucose (10/19/2023 6:57 AM FOUNDRY WORKER GENERAL) [facility] Signature Glucose, POC 147(H) 70 - 140 mg/dL [facility] Comment: For Glucose values <35 mg/dl when Hematocrit is >60 mg/dl,the test may not accurately detect significant hypoglycemia,and testing in the Laboratory should be considered if clinically indicated. Blood 10/19/2023 6:57 AM FOUNDRY WORKER GENERAL 10/19/2023 6:57 AM FOUNDRY WORKER GENERAL Jaqueline Valero MD LAB POCT ORDERABLES - APRIL CE Final Result [facility] [address] [place] [address] * XR Chest 1 View - Portable - in AM (10/19/2023 6:27 AM FOUNDRY WORKER GENERAL) Anatomical Region Laterality Modality Body, Chest N/A Computed Radiogr aphy 10/19/2023 7:36 AM FOUNDRY WORKER GENERAL Impressions 10/19/2023 7:36 AM FOUNDRY WORKER GENERAL Comparison is made to 10/10/2023. ??Right internal jugular catheter tip overlies the superior vena cava, unchanged in position. ??The Phoenix-Daniel catheter has been removed. ??Sternotomy wires and [...] John Bruno M.D. Narrative 10/19/2023 7:36 AM FOUNDRY WORKER GENERAL EXAMINATION: Chest 1 view frontal HISTORY: Shortness of breath Procedure Note John Bruno MD - 10/19/2023 EXAMINATION: Chest 1 view frontal HISTORY: Shortness of breath IMPRESSION: Comparison is made to 10/10/2023. Right internal jugular catheter tip overlies the superior vena cava, unchanged in position. The Phoenix-Daniel catheter has been removed. Sternotomy wires and [...] * (ABNORMAL) POCT glucose (10/19/2023 6:06 AM FOUNDRY WORKER GENERAL) Glucose, POC 163(H) 70 - 140 mg/dL [facility]3] Comment: For Glucose values <35 mg/dl when Hematocrit is >60 mg/dl,the test may not accurately detect significant hypoglycemia,and testing in the Laboratory should be considered if clinically indicated. Blood 10/19/2023 6:06 AM FOUNDRY WORKER GENERAL 10/19/2023 6:06 AM FOUNDRY WORKER GENERAL Jaqueline Valero MD LAB POCT ORDERABLES - APRIL CE Final Result Performing Organization Address [facility] Co de Phone Number [facility])[3] [address] [facility] [employer] [place], [place] [id number] * (ABNORMAL) POCT glucose (10/19/2023 5:10 AM FOUNDRY WORKER GENERAL) Glucose, POC 191(H) 70 - 140 mg/dL [facility]3] Comment: For Glucose values <35 mg/dl when Hematocrit is >60 mg/dl,the test may not accurately detect significant hypoglycemia,and testing in the Laboratory should be considered if clinically indicated. Blood 10/19/2023 5:10 AM FOUNDRY WORKER GENERAL 10/19/2023 5:10 AM FOUNDRY WORKER GENERAL Jaqueline Valero MD LAB POCT ORDERABLES - APRIL CE Final Result Performing Organization Address [facility] de Phone Number [facility])[3] [address] [facility] [place] [address] * (ABNORMAL) aPTT (10/19/2023 4:14 AM FOUNDRY WORKER GENERAL) aPTT 50(H) 28 - 38 sec [facility]3] Comment: Interpretive Data Heparin therapeutic range: 66.0 - 100.0 seconds. Range based on correlation with therapeutic heparin activity range of 0.3 - 0.7 Units/mL. Current interpretive data was last revised on 2023. Blood 10/19/2023 4:14 AM FOUNDRY WORKER GENERAL 10/19/2023 4:27 AM FOUNDRY WORKER GENERAL Narrative [facility]3] - 10/19/2023 5:01 AM FOUNDRY WORKER GENERAL Draw STAT PTT 6 hrs after initiation of heparin infusion, draw STAT PTT 6 hours after each dose change, and every 6 hours until 2 consecutive PTTs are within therapeutic range. Once two consecutive PTT's are therapeutic (46-70 seconds), then draw PTT every AM until heparin is discontinued. Jaqueline Valero MD LAB BLOOD ORDERABLES Final Result Performing Organization Address [facility] de Phone Number [facility])[3] [address] [facility] [place] [address] * (ABNORMAL) POCT glucose (10/19/2023 4:03 AM FOUNDRY WORKER GENERAL) Glucose, POC 175(H) 70 - 140 mg/dL [facility]3] Comment: For Glucose values <35 mg/dl when Hematocrit is >60 mg/dl,the test may not accurately detect significant hypoglycemia,and testing in the Laboratory should be considered if clinically indicated. Blood 10/19/2023 4:03 AM FOUNDRY WORKER GENERAL 10/19/2023 4:03 AM FOUNDRY WORKER GENERAL Jaqueline Valero MD LAB POCT ORDERABLES - APRIL CE Final Result Performing Organization Address [facility] de Phone Number [facility])[3] [address] [facility] [place] [address] * (ABNORMAL) POCT glucose (10/19/2023 2:56 AM FOUNDRY WORKER GENERAL) Glucose, POC 177(H) 70 - 140 mg/dL [facility]3] Comment: For Glucose values <35 mg/dl when Hematocrit is >60 mg/dl,the test may not accurately detect significant hypoglycemia,and testing in the Laboratory should be considered if clinically indicated. Blood 10/19/2023 2:56 AM FOUNDRY WORKER GENERAL 10/19/2023 2:56 AM FOUNDRY WORKER GENERAL Result [facility] Jaqueline Valero MD LAB POCT ORDERABLES - APRIL CE Final Result Performing Organization Address [facility]/ZIP Co de Phone Number [facility]3] [address] [place] [address] * eGFR (10/19/2023 2:11 AM FOUNDRY WORKER GENERAL) eGFR 5 mL/min/1. 73 m2 [facility]3] Comment: Interpretive Data Reference Interval Normal ?>/= [...] last reviewed 2021. Blood 10/19/2023 2:11 AM FOUNDRY WORKER GENERAL 10/19/2023 2:23 AM FOUNDRY WORKER GENERAL Dawna Castellanos LOAN BROKER LAB BLOOD ORDERABLES Ann Marie l Result Performing Organization Address [facility]/ZIP Co de Phone Number [facility]3] [address] [place] [address] * (ABNORMAL) Blood gas, arterial (10/19/2023 2:11 AM FOUNDRY WORKER GENERAL) Pathologist [facility] pH, Art 7.28(L) 7.35 - 7.45 [facility]3] PCO2, Arterial 44 35 - 45 mmHg [facility]3] PO2, Arterial 130(H) 83 - 108 mmHg [facility]3] HCO3 Art (Calculated) 21 20 - 30 mmol/L [facility]3] BE, art -6 mmol/L [facility]3] Comment: Interpretive Data No Reference Range Established Current Interpretive Data was last revised on 2017 O2 Sat Art (Calculated) 99(H) 94 - 98 % [facility]3] Blood 10/19/2023 2:11 AM FOUNDRY WORKER GENERAL 10/19/2023 2:15 AM FOUNDRY WORKER GENERAL Gamal Fox LOAN BROKER LAB BLOOD ORDERABLES Final Result Performing Organization Address [facility] Co de Phone Number [facility]3] [address] Department of [employer] [place], [place] [id number] * Oxyhemoglobin, central venous (10/19/2023 2:11 AM FOUNDRY WORKER GENERAL) [facility] Oxyhemoglobin, CV 79.0 % [facility]3] Comment: Interpretive Data No reference range established. Current interpretive data was last revised 2019. Blood 10/19/2023 2:11 AM FOUNDRY WORKER GENERAL 10/19/2023 2:15 AM FOUNDRY WORKER GENERAL Dawna Castellanos LOAN BROKER LAB BLOOD ORDERABLES Ann Marie l Result Performing Organization Address City/[facility]/ZIP Co de Phone Number [facility]3] [address] [place] [address] * Protime-INR (10/19/2023 2:11 AM FOUNDRY WORKER GENERAL) [facility] PT 12.8 10.3 - 13.7 sec [facility]3] INR 1.12 0.90 - 1.20 [facility]3] Comment: Interpretive data Oral anticoagulant therapeutic ranges: Venous thromboembolism prophylaxis or treatment: 2.0-3.0 CARDIOLOGY Standard range: 2.0-3.0 High-intensity range: 2.5-3.5 Refer to indication-specific guidelines for appropriate target ranges for prosthetic heart valve replacement. Current interpretive data was last revised on 2019. Blood 10/19/2023 2:11 AM FOUNDRY WORKER GENERAL 10/19/2023 2:23 AM FOUNDRY WORKER GENERAL Byron Olvera NP LAB BLOOD ORDERABLES Fi nal Result Performing Organization Address City/[facility] Co de Phone Number [facility]3] [address] [facility] [employer] [place], [place] [id number] * Magnesium (10/19/2023 2:11 AM FOUNDRY WORKER GENERAL) Magnesium 2.5 1.4 - 2.5 mg/dL [facility]3] Blood 10/19/2023 2:11 AM FOUNDRY WORKER GENERAL 10/19/2023 2:23 AM FOUNDRY WORKER GENERAL Byron Olvera NP LAB BLOOD ORDERABLES Fi nal Result Performing Organization Address [facility] Co de Phone Number [facility])[3] [address] [facility] [place] [address] * Calcium, ionized (10/19/2023 2:11 AM FOUNDRY WORKER GENERAL) Pathologist [facility] Calcium, Ionized 4.69 4.50 - 5.10 mg/dL [facility]3] Blood 10/19/2023 2:11 AM FOUNDRY WORKER GENERAL 10/19/2023 2:15 AM FOUNDRY WORKER GENERAL Byron Olvera NP LAB BLOOD ORDERABLES Fi nal Result Performing Organization Address [facility] Co de Phone Number [facility])[3] [address] [facility] [employer] [place], [place] [id number] * (ABNORMAL) Renal function panel (10/19/2023 2:11 AM FOUNDRY WORKER GENERAL) Sodium 138 135 - 145 mmol/L [facility]3] Potassium, pl 4.4 3.3 - 4.9 mmol/L [facility]3] Chloride 97 97 - 110 mmol/L [facility]3] CO2 21(L) 22 - 32 mmol/L [facility]3] Anion gap 20(H) 2 - 15 mmol/L [facility]3] BUN 74(H) 6 - 25 mg/dL [facility]3] Creatinine 10.85(H) 0.80 - 1.30 mg/dL [facility]3] Glucose 188 70 - 199 mg/dL [facility]3] Comment: Interpretive Data Fasting glucose >/= 126 [...] 2022. Calcium 9.0 8.5 - 10.3 mg/dL [facility]3] Phosphorus, pl 8.3(H) 2.3 - 4.5 mg/dL [facility]3] Albumin 3.1(L) 3.5 - 5.0 g/dL [facility]3] Blood 10/19/2023 2:11 AM FOUNDRY WORKER GENERAL 10/19/2023 2:23 AM FOUNDRY WORKER GENERAL us Byron Olvera NP LAB BLOOD ORDERABLES Fi nal Result [facility]3] [address] Department [place] [address] * (ABNORMAL) CBC without differential (10/19/2023 2:11 AM FOUNDRY WORKER GENERAL) WBC 8.9 3.8 - 9.9 K/cumm [facility]3] Hgb 8.7(L) 13.0 - 17.5 g/dL [facility]3] Hct 27.4(L) 38.9 - 50.3 % [facility]3] Plt 157 150 - 400 K/cumm [facility]3] MPV 11.0 9.1 - 12.3 fL [facility]3] RBC 2.91(L) 4.30 - 5.80 M/cumm [facility]3] MCV 94.2 81.3 - 96.4 fL [facility]3] MCH 29.9 27.1 - 33.3 pg [facility]3] MCHC 31.8(L) 32.3 - 35.7 g/dL [facility]3] RDW CV 16.4(H) 11.1 - 14.9 % [facility]3] RDW SD 55.0(H) 35.7 - 48.1 fL [facility]3] NRBC abs 0.00 0.00 - 0.01 K/cumm [facility]3] Blood 10/19/2023 2:11 AM FOUNDRY WORKER GENERAL 10/19/2023 2:23 AM FOUNDRY WORKER GENERAL Byron Olvera LOAN BROKER LAB BLOOD ORDERABLES Fi nal Result Performing Organization Address [facility]/ZIP Co de Phone Number [facility]3] [address] [place] [address] * (ABNORMAL) POCT glucose (10/19/2023 2:07 AM FOUNDRY WORKER GENERAL) Glucose, POC 171(H) 70 - 140 mg/dL [facility]3] Comment: For Glucose values <35 mg/dl when Hematocrit is >60 mg/dl,the test may not accurately detect significant hypoglycemia,and testing in the Laboratory should be considered if clinically indicated. Blood 10/19/2023 2:07 AM FOUNDRY WORKER GENERAL 10/19/2023 2:07 AM FOUNDRY WORKER GENERAL Jaqueline Valero MD LAB POCT ORDERABLES - APRIL CE Final Result Performing Organization Address City/[facility]/ZIP Co de Phone Number [facility])[3] [address] [facility] [place] [address] * (ABNORMAL) POCT glucose (10/19/2023 12:01 AM FOUNDRY WORKER GENERAL) Glucose, POC 144(H) 70 - 140 mg/dL [facility]3] Comment: For Glucose values <35 mg/dl when Hematocrit is >60 mg/dl,the test may not accurately detect significant hypoglycemia,and testing in the Laboratory should be considered if clinically indicated. Blood 10/19/2023 12:0 1 AM FOUNDRY WORKER GENERAL 10/19/2023 12:01 AM FOUNDRY WORKER GENERAL Jaqueline Valero MD LAB POCT ORDERABLES - APRIL CE Final Result Performing Organization Address [facility] Co de Phone Number [facility])[3] [address] [place] [address] * POCT glucose (10/18/2023 11:03 PM FOUNDRY WORKER GENERAL) Glucose, POC 106 70 - 140 mg/dL [facility]3] Comment: For Glucose values <35 mg/dl when Hematocrit is >60 mg/dl,the test may not accurately detect significant hypoglycemia,and testing in the Laboratory should be considered if clinically indicated. Blood 10/18/2023 11:0 3 PM FOUNDRY WORKER GENERAL 10/18/2023 11:03 PM FOUNDRY WORKER GENERAL Result [facility] Jaqueline Valero MD LAB POCT ORDERABLES - APRIL CE Final Result Performing Organization Address [facility] Co de Phone Number [facility])[3] [address] [place] [address] * POCT glucose (10/18/2023 10:11 PM FOUNDRY WORKER GENERAL) Glucose, POC 114 70 - 140 mg/dL [facility]3] Comment: For Glucose values <35 mg/dl when Hematocrit is >60 mg/dl,the test may not accurately detect significant hypoglycemia,and testing in the Laboratory should be considered if clinically indicated. Blood 10/18/2023 10:1 1 PM FOUNDRY WORKER GENERAL 10/18/2023 10:11 PM FOUNDRY WORKER GENERAL Jaqueline Valero MD LAB POCT ORDERABLES - APRIL CE Final Result Performing Organization Address [facility] Co de Phone Number [facility])[3] [address] [place] [address] * (ABNORMAL) aPTT (10/18/2023 9:21 PM FOUNDRY WORKER GENERAL) aPTT 43(H) 28 - 38 sec [facility]3] Comment: Interpretive Data Heparin therapeutic range: 66.0 - 100.0 seconds. Range based on correlation with therapeutic heparin activity range of 0.3 - 0.7 Units/mL. Current interpretive data was last revised on 2023. Blood 10/18/2023 9:21 PM FOUNDRY WORKER GENERAL 10/18/2023 9:25 PM FOUNDRY WORKER GENERAL Narrative [facility]3] - 10/18/2023 9:42 PM FOUNDRY WORKER GENERAL Draw STAT PTT 6 hrs after initiation of heparin infusion, draw STAT PTT 6 hours after each dose change, and every 6 hours until 2 consecutive PTTs are within therapeutic range. Once two consecutive PTT's are therapeutic (46-70 seconds), then draw PTT every AM until heparin is discontinued. Jaqueline Valero MD LAB BLOOD ORDERABLES Final Result Performing Organization Address City/[facility]/ZIP Co de Phone Number [facility]3] [address] [employer] [place], [place] [id number] * POCT glucose (10/18/2023 9:19 PM FOUNDRY WORKER GENERAL) [facility] Glucose, POC 120 70 - 140 mg/dL [facility]3] Comment: For Glucose values <35 mg/dl when Hematocrit is >60 mg/dl,the test may not accurately detect significant hypoglycemia,and testing in the Laboratory should be considered if clinically indicated. Blood 10/18/2023 9:19 PM FOUNDRY WORKER GENERAL 10/18/2023 9:19 PM FOUNDRY WORKER GENERAL Jaqueline Valero MD LAB POCT ORDERABLES - APRIL CE Final Result [facility]3] [address] [employer] [place], [place] [id number] * POCT glucose (10/18/2023 8:37 PM FOUNDRY WORKER GENERAL) Pathologist [facility] Glucose, POC 120 70 - 140 mg/dL [facility]3] Comment: For Glucose values <35 mg/dl when Hematocrit is >60 mg/dl,the test may not accurately detect significant hypoglycemia,and testing in the Laboratory should be considered if clinically indicated. Blood 10/18/2023 8:37 PM FOUNDRY WORKER GENERAL 10/18/2023 8:37 PM FOUNDRY WORKER GENERAL Jaqueline Valero MD LAB POCT ORDERABLES - APRIL CE Final Result Performing Organization Address [facility] Co de Phone Number [facility]3] [address] Department [place] [address] * (ABNORMAL) Blood gas, arterial (10/18/2023 8:34 PM FOUNDRY WORKER GENERAL) pH, Art 7.27(L) 7.35 - 7.45 [facility]3] PCO2, Arterial 46(H) 35 - 45 mmHg [facility]3] PO2, Arterial 88 83 - 108 mmHg [facility]3] HCO3 Art (Calculated) 21 20 - 30 mmol/L [facility]3] BE, art -6 mmol/L [facility]3] Comment: Interpretive Data No Reference Range Established Current Interpretive Data was last revised on 2017 O2 Sat Art (Calculated) 95 94 - 98 % [facility]3] Blood 10/18/2023 8:34 PM FOUNDRY WORKER GENERAL 10/18/2023 8:40 PM FOUNDRY WORKER GENERAL Result [facility] Gamal Fox NP LAB BLOOD ORDERABLES Final Result Performing Organization Address [facility] Co de Phone Number [facility]3] [address] [place] [address] * Critical Care (10/18/2023 6:49 PM FOUNDRY WORKER GENERAL) Narrative Kirsten Burns MD - 10/18/2023 6:49 PM FOUNDRY WORKER GENERAL Gamal Fox NP ? 10/19/2023 ??3:18 AM Critical Care Performed by: Gamal Fox NP Authorized by: Gamal Fox NP ?? CRITICAL CARE: ??Team: ??[facility] ??Shift: ??PM ??Level of Billing: ??Critical [...] plan with the ICU team and other medical/lead consultant staff, making frequent assessments and decisions [...] Result * POCT glucose (10/18/2023 6:38 PM FOUNDRY WORKER GENERAL) Glucose, POC 135 70 - 140 mg/dL [facility]3] Comment: For Glucose values <35 mg/dl when Hematocrit is >60 mg/dl,the test may not accurately detect significant hypoglycemia,and testing in the Laboratory should be considered if clinically indicated. Blood 10/18/2023 6:38 PM FOUNDRY WORKER GENERAL 10/18/2023 6:38 PM FOUNDRY WORKER GENERAL Jaqueline Valero MD LAB POCT ORDERABLES - APRIL CE Final Result [facility] [address] Department [place] [address] * POCT glucose (10/18/2023 5:45 PM FOUNDRY WORKER GENERAL) Glucose, POC 132 70 - 140 mg/dL [facility]3] Comment: For Glucose values <35 mg/dl when Hematocrit is >60 mg/dl,the test may not accurately detect significant hypoglycemia,and testing in the Laboratory should be considered if clinically indicated. Blood 10/18/2023 5:45 PM FOUNDRY WORKER GENERAL 10/18/2023 5:45 PM FOUNDRY WORKER GENERAL us Jaqueline Valero MD LAB POCT ORDERABLES - APRIL CE Final Result [facility] [address] [place] [address] * XR Kub (10/18/2023 5:42 PM FOUNDRY WORKER GENERAL) Anatomical Region Laterality Modality Body, Abdomen N/A Computed Radiogr aphy 10/18/2023 5:50 PM FOUNDRY WORKER GENERAL Impressions 10/18/2023 5:50 PM FOUNDRY WORKER GENERAL FINDINGS/IMPRESSION: ?? Apically oriented left-sided chest tubes and mediastinal drains. Overall paucity of gas distended bowel loops within the abdomen and pelvis. ??No visualized dilated bowel loops. ??No large volume of intraperitoneal free air, although evaluation is limited with supine positioning. ??A Nguyen catheter temperature probe is present. ??No acute osseous abnormality. Electronically signed by: Camilo Cheatham MD Narrative 10/18/2023 5:50 PM FOUNDRY WORKER GENERAL EXAMINATION: XR KUB HISTORY: Nausa vomiting VIEWS: [...] Result * POCT glucose (10/18/2023 4:47 PM FOUNDRY WORKER GENERAL) Glucose, POC 138 70 - 140 mg/dL [facility]3] Comment: For Glucose values <35 mg/dl when Hematocrit is >60 mg/dl,the test may not accurately detect significant hypoglycemia,and testing in the Laboratory should be considered if clinically indicated. Blood 10/18/2023 4:47 PM FOUNDRY WORKER GENERAL 10/18/2023 4:47 PM FOUNDRY WORKER GENERAL Jaqueline Valero MD LAB POCT ORDERABLES - APRIL CE Final Result Performing Organization Address [facility] de Phone Number [facility]3] [address] [facility] [place] [address] * aPTT (10/18/2023 2:55 PM FOUNDRY WORKER GENERAL) [facility] Signature aPTT 38 28 - 38 sec [facility]3] Comment: Interpretive Data Heparin therapeutic range: 66.0 - 100.0 seconds. Range based on correlation with therapeutic heparin activity range of 0.3 - 0.7 Units/mL. Current interpretive data was last revised on 2023. Blood 10/18/2023 2:55 PM FOUNDRY WORKER GENERAL 10/18/2023 3:16 PM FOUNDRY WORKER GENERAL Result [facility] Jaqueline Valero MD LAB BLOOD ORDERABLES Final Result Performing Organization Address [facility] de Phone Number [facility]3] [address] [facility] [place] [address] * POCT glucose (10/18/2023 2:52 PM FOUNDRY WORKER GENERAL) Glucose, POC 104 70 - 140 mg/dL [facility]3] Comment: For Glucose values <35 mg/dl when Hematocrit is >60 mg/dl,the test may not accurately detect significant hypoglycemia,and testing in the Laboratory should be considered if clinically indicated. Blood 10/18/2023 2:52 PM FOUNDRY WORKER GENERAL 10/18/2023 2:52 PM FOUNDRY WORKER GENERAL Result [facility] Jaqueline Valero MD LAB POCT ORDERABLES - APRIL CE Final Result Performing Organization Address [facility] Co de Phone Number [facility]3] [address] [facility] [place] [address] * POCT glucose (10/18/2023 1:53 PM FOUNDRY WORKER GENERAL) Glucose, POC 87 70 - 140 mg/dL [facility]3] Comment: For Glucose values <35 mg/dl when Hematocrit is >60 mg/dl,the test may not accurately detect significant hypoglycemia,and testing in the Laboratory should be considered if clinically indicated. Blood 10/18/2023 1:53 PM FOUNDRY WORKER GENERAL 10/18/2023 1:53 PM FOUNDRY WORKER GENERAL Jaqueline Valero MD LAB POCT ORDERABLES - APRIL CE Final Result Performing Organization Address [facility] Co de Phone Number [facility]3] [address] [facility] [place] [address] * POCT glucose (10/18/2023 12:48 PM FOUNDRY WORKER GENERAL) Glucose, POC 83 70 - 140 mg/dL [facility]3] Comment: For Glucose values <35 mg/dl when Hematocrit is >60 mg/dl,the test may not accurately detect significant hypoglycemia,and testing in the Laboratory should be considered if clinically indicated. Blood 10/18/2023 12:4 8 PM FOUNDRY WORKER GENERAL 10/18/2023 12:48 PM FOUNDRY WORKER GENERAL Jaqueline Valero MD LAB POCT ORDERABLES - APRIL CE Final Result Performing Organization Address [facility] Co de Phone Number [facility]3] [address] [place] [address] * POCT glucose (10/18/2023 12:00 PM FOUNDRY WORKER GENERAL) Glucose, POC 81 70 - 140 mg/dL [facility]3] Comment: For Glucose values <35 mg/dl when Hematocrit is >60 mg/dl,the test may not accurately detect significant hypoglycemia,and testing in the Laboratory should be considered if clinically indicated. Blood 10/18/2023 12:0 0 PM FOUNDRY WORKER GENERAL 10/18/2023 12:00 PM FOUNDRY WORKER GENERAL Jaqueline Valero MD LAB POCT ORDERABLES - APRIL CE Final Result Performing Organization Address [facility] Co de Phone Number [facility])[3] [address] [facility] [place] [address] * POCT glucose (10/18/2023 10:57 AM FOUNDRY WORKER GENERAL) Glucose, POC 76 70 - 140 mg/dL [facility]3] Comment: For Glucose values <35 mg/dl when Hematocrit is >60 mg/dl,the test may not accurately detect significant hypoglycemia,and testing in the Laboratory should be considered if clinically indicated. Blood 10/18/2023 10:5 7 AM FOUNDRY WORKER GENERAL 10/18/2023 10:57 AM FOUNDRY WORKER GENERAL Result [facility] Jaqueline Valero MD LAB POCT ORDERABLES - APRIL CE Final Result Performing Organization Address [facility] de Phone Number [facility]3] [address] [facility] [place] [address] * POCT glucose (10/18/2023 9:52 AM FOUNDRY WORKER GENERAL) Glucose, POC 92 70 - 140 mg/dL [facility]3] Comment: For Glucose values <35 mg/dl when Hematocrit is >60 mg/dl,the test may not accurately detect significant hypoglycemia,and testing in the Laboratory should be considered if clinically indicated. Blood 10/18/2023 9:52 AM FOUNDRY WORKER GENERAL 10/18/2023 9:52 AM FOUNDRY WORKER GENERAL Result [facility] Jaqueline Valero MD LAB POCT ORDERABLES - APRIL CE Final Result Performing Organization Address [facility] Co de Phone Number [facility]3] [address] [facility] [employer] [place] [address] * POCT glucose (10/18/2023 8:46 AM FOUNDRY WORKER GENERAL) Glucose, POC 115 70 - 140 mg/dL [facility]3] Comment: For Glucose values <35 mg/dl when Hematocrit is >60 mg/dl,the test may not accurately detect significant hypoglycemia,and testing in the Laboratory should be considered if clinically indicated. Blood 10/18/2023 8:46 AM FOUNDRY WORKER GENERAL 10/18/2023 8:46 AM FOUNDRY WORKER GENERAL Jaqueline Valero MD LAB POCT ORDERABLES - APRIL CE Final Result Performing Organization Address [facility] de Phone Number [facility]3] [address] Department [place] [address] * POCT glucose (10/18/2023 7:58 AM FOUNDRY WORKER GENERAL) Glucose, POC 130 70 - 140 mg/dL [facility]3] Comment: For Glucose values <35 mg/dl when Hematocrit is >60 mg/dl,the test may not accurately detect significant hypoglycemia,and testing in the Laboratory should be considered if clinically indicated. Blood 10/18/2023 7:58 AM FOUNDRY WORKER GENERAL 10/18/2023 7:58 AM FOUNDRY WORKER GENERAL Jaqueline Valero MD LAB POCT ORDERABLES - APRIL CE Final Result Performing Organization Address [facility] de Phone Number [facility]3] [address] Department [place] [address] * Critical Care (10/18/2023 7:27 AM FOUNDRY WORKER GENERAL) Narrative Kirsten Burns MD - 10/18/2023 7:27 AM FOUNDRY WORKER GENERAL Dawna Castellanos NP ? 10/18/2023 ??2:29 PM Critical Care Performed by: Dawna Castellanos NP Authorized by: Dawna Castellanos NP ?? CRITICAL CARE: ??Team: ??[facility] ??Shift: ??AM ??Level of Billing: ??Critical [...] plan with the ICU team and other medical/lead consultant staff, making frequent assessments and decisions [...] * (ABNORMAL) POCT glucose (10/18/2023 7:02 AM FOUNDRY WORKER GENERAL) Glucose, POC 169(H) 70 - 140 mg/dL [facility]3] Comment: For Glucose values <35 mg/dl when Hematocrit is >60 mg/dl,the test may not accurately detect significant hypoglycemia,and testing in the Laboratory should be considered if clinically indicated. Blood 10/18/2023 7:02 AM FOUNDRY WORKER GENERAL 10/18/2023 7:02 AM FOUNDRY WORKER GENERAL Jaqueline Valero MD LAB POCT ORDERABLES - APRIL CE Final Result [facility]3] [address] [place] [address] * (ABNORMAL) POCT glucose (10/18/2023 6:04 AM FOUNDRY WORKER GENERAL) Glucose, POC 196(H) 70 - 140 mg/dL [facility]3] Comment: For Glucose values <35 mg/dl when Hematocrit is >60 mg/dl,the test may not accurately detect significant hypoglycemia,and testing in the Laboratory should be considered if clinically indicated. Blood 10/18/2023 6:04 AM FOUNDRY WORKER GENERAL 10/18/2023 6:04 AM FOUNDRY WORKER GENERAL us Jaqueline Valero MD LAB POCT ORDERABLES - APRIL CE Final Result [facility] [address] Department [place] [address] * XR Chest 1 View - Portable - in AM (10/18/2023 5:38 AM FOUNDRY WORKER GENERAL) Anatomical Region Laterality Modality Body, Chest N/A Computed Radiogr aphy 10/18/2023 9:33 AM FOUNDRY WORKER GENERAL Impressions 10/18/2023 9:33 AM FOUNDRY WORKER GENERAL Comparison 10/17/2023 at 1:37 PM. ??Median sternotomy wires and sternal plates again seen. ??Aortic valve replacement again noted. ??Phoenix-Daniel catheter tip projects over the proximal portion [...] Ramirez Blake M.D. Narrative 10/18/2023 9:33 AM FOUNDRY WORKER GENERAL EXAMINATION: Chest 1 view Procedure Note Ramirez Blake MD - 10/18/2023 EXAMINATION: Chest 1 view IMPRESSION: Comparison 10/17/2023 at 1:37 PM. Median sternotomy wires and sternal plates again seen. Aortic valve replacement again noted. Phoenix-Daniel catheter tip projects over the proximal portion [...] signed by: Ramirez Blake M.D. Byron Olvera LOAN BROKER IMG XR PROCEDURES Final Result * (ABNORMAL) POCT glucose (10/18/2023 5:04 AM FOUNDRY WORKER GENERAL) Glucose, POC 172(H) 70 - 140 mg/dL [facility]3] Comment: For Glucose values <35 mg/dl when Hematocrit is >60 mg/dl,the test may not accurately detect significant hypoglycemia,and testing in the Laboratory should be considered if clinically indicated. Blood 10/18/2023 5:04 AM FOUNDRY WORKER GENERAL 10/18/2023 5:04 AM FOUNDRY WORKER GENERAL Result [facility] Jaqueline Valero MD LAB POCT ORDERABLES - APRIL CE Final Result Performing Organization Address [facility] de Phone Number [facility]3] [address] [employer] [place], [place] [id number] * (ABNORMAL) POCT glucose (10/18/2023 4:03 AM FOUNDRY WORKER GENERAL) Glucose, POC 165(H) 70 - 140 mg/dL [facility]3] Comment: For Glucose values <35 mg/dl when Hematocrit is >60 mg/dl,the test may not accurately detect significant hypoglycemia,and testing in the Laboratory should be considered if clinically indicated. Blood 10/18/2023 4:03 AM FOUNDRY WORKER GENERAL 10/18/2023 4:03 AM FOUNDRY WORKER GENERAL Result [facility] Jaqueline Valero MD LAB POCT ORDERABLES - APRIL CE Final Result Performing Organization Address [facility] Co de Phone Number [facility]3] [address] [facility] [place] [address] * (ABNORMAL) POCT glucose (10/18/2023 3:04 AM FOUNDRY WORKER GENERAL) Glucose, POC 167(H) 70 - 140 mg/dL [facility]3] Comment: For Glucose values <35 mg/dl when Hematocrit is >60 mg/dl,the test may not accurately detect significant hypoglycemia,and testing in the Laboratory should be considered if clinically indicated. Blood 10/18/2023 3:04 AM FOUNDRY WORKER GENERAL 10/18/2023 3:04 AM FOUNDRY WORKER GENERAL Jaqueline Valero MD LAB POCT ORDERABLES - APRIL CE Final Result Performing Organization Address [facility] Co de Phone Number [facility])[3] [address] [facility] [employer] [place] [address] * (ABNORMAL) POCT glucose (10/18/2023 1:57 AM FOUNDRY WORKER GENERAL) Glucose, POC 178(H) 70 - 140 mg/dL [facility]3] Comment: For Glucose values <35 mg/dl when Hematocrit is >60 mg/dl,the test may not accurately detect significant hypoglycemia,and testing in the Laboratory should be considered if clinically indicated. Blood 10/18/2023 1:57 AM FOUNDRY WORKER GENERAL 10/18/2023 1:57 AM FOUNDRY WORKER GENERAL us Jaqueline Valero MD LAB POCT ORDERABLES - APRIL CE Final Result Performing Organization Address [facility] de Phone Number [facility])[3] [address] [facility] [employer] [place] [address] * (ABNORMAL) Fibrinogen (10/18/2023 1:54 AM FOUNDRY WORKER GENERAL) [facility] Fibrinogen 435(H) 170 - 400 mg/dL [facility]3] Blood 10/18/2023 1:54 AM FOUNDRY WORKER GENERAL 10/18/2023 2:14 AM FOUNDRY WORKER GENERAL us Jaqueline Valero MD LAB BLOOD ORDERABLES Final Result Performing Organization Address [facility] Co de Phone Number [facility])[3] [address] Department [place] [address] * eGFR (10/18/2023 1:54 AM FOUNDRY WORKER GENERAL) Pathologist [facility] eGFR 5 mL/min/1. 73 m2 [facility]3] Comment: Interpretive Data Reference Interval Normal ?>/= [...] last reviewed 2021. Blood 10/18/2023 1:54 AM FOUNDRY WORKER GENERAL 10/18/2023 2:14 AM FOUNDRY WORKER GENERAL us Dawna Castellanos LOAN BROKER LAB BLOOD ORDERABLES Ann Marie kramer Result [facility])[3] [address] Department [place] [address] * Blood gas, arterial (10/18/2023 1:54 AM FOUNDRY WORKER GENERAL) Pathologist [facility] pH, Art 7.35 7.35 - 7.45 [facility]3] PCO2, Arterial 38 35 - 45 mmHg [facility]3] PO2, Arterial 92 83 - 108 mmHg [facility]3] HCO3 Art (Calculated) 21 20 - 30 mmol/L [facility]3] BE, art -4 mmol/L [facility]3] Comment: Interpretive Data No Reference Range Established Current Interpretive Data was last revised on 2017 O2 Sat Art (Calculated) 97 94 - 98 % [facility]3] Blood 10/18/2023 1:54 AM FOUNDRY WORKER GENERAL 10/18/2023 2:11 AM FOUNDRY WORKER GENERAL Dawna Castellanos LOAN BROKER LAB BLOOD ORDERABLES Ann Marie l Result Performing Organization Address [facility] Co de Phone Number [facility])[3] [address] [place] [address] * Protime-INR (10/18/2023 1:54 AM FOUNDRY WORKER GENERAL) PT 13.4 10.3 - 13.7 sec [facility]3] INR 1.18 0.90 - 1.20 [facility]3] Comment: Interpretive data Oral anticoagulant therapeutic ranges: Venous thromboembolism prophylaxis or treatment: 2.0-3.0 CARDIOLOGY Standard range: 2.0-3.0 High-intensity range: 2.5-3.5 Refer to indication-specific guidelines for appropriate target ranges for prosthetic heart valve replacement. Current interpretive data was last revised on 2019. Blood 10/18/2023 1:54 AM FOUNDRY WORKER GENERAL 10/18/2023 2:14 AM FOUNDRY WORKER GENERAL Jaqueline Valero MD LAB BLOOD ORDERABLES Final Result Performing Organization Address [facility] Co de Phone Number [facility])[3] [address] [place] [address] * Magnesium (10/18/2023 1:54 AM FOUNDRY WORKER GENERAL) Magnesium 2.5 1.4 - 2.5 mg/dL [facility]3] Blood 10/18/2023 1:54 AM FOUNDRY WORKER GENERAL 10/18/2023 2:14 AM FOUNDRY WORKER GENERAL Byron Olvera LOAN BROKER LAB BLOOD ORDERABLES Fi nal Result Performing Organization Address [facility]/State/ZIP Co de Phone Number [facility])[3] [address] Department [place] [address] * Calcium, ionized (10/18/2023 1:54 AM FOUNDRY WORKER GENERAL) Calcium, Ionized 4.94 4.50 - 5.10 mg/dL [facility]3] Blood 10/18/2023 1:54 AM FOUNDRY WORKER GENERAL 10/18/2023 2:12 AM FOUNDRY WORKER GENERAL Byron Olvera NP LAB BLOOD ORDERABLES Fi nal Result [facility])[3] [address] Department [place] [address] * (ABNORMAL) Renal function panel (10/18/2023 1:54 AM FOUNDRY WORKER GENERAL) Pathologist [facility] Sodium 136 135 - 145 mmol/L [facility]3] Potassium, pl 4.0 3.3 - 4.9 mmol/L [facility]3] Chloride 98 97 - 110 mmol/L [facility]3] CO2 20(L) 22 - 32 mmol/L [facility]3] Anion gap 18(H) 2 - 15 mmol/L [facility]3] BUN 71(H) 6 - 25 mg/dL [facility]3] Creatinine 10.47(H) 0.80 - 1.30 mg/dL [facility]3] Glucose 174 70 - 199 mg/dL [facility]3] Comment: Interpretive Data Fasting glucose >/= 126 [...] 2022. Calcium 9.2 8.5 - 10.3 mg/dL [facility]3] Phosphorus, pl 6.5(H) 2.3 - 4.5 mg/dL [facility]3] Albumin 2.6(L) 3.5 - 5.0 g/dL [facility]3] Blood 10/18/2023 1:54 AM FOUNDRY WORKER GENERAL 10/18/2023 2:14 AM FOUNDRY WORKER GENERAL Byron Olvera LOAN BROKER LAB BLOOD ORDERABLES Fi nal Result Performing Organization Address [facility] Co de Phone Number [facility])[3] [address] [place] [address] * (ABNORMAL) CBC without differential (10/18/2023 1:54 AM FOUNDRY WORKER GENERAL) [facility] WBC 8.3 3.8 - 9.9 K/cumm [facility]3] Hgb 8.5(L) 13.0 - 17.5 g/dL [facility]3] Hct 26.4(L) 38.9 - 50.3 % [facility]3] Plt 164 150 - 400 K/cumm [facility]3] MPV 11.1 9.1 - 12.3 fL [facility]3] RBC 2.89(L) 4.30 - 5.80 M/cumm [facility]3] MCV 91.3 81.3 - 96.4 fL [facility]3] MCH 29.4 27.1 - 33.3 pg [facility]3] MCHC 32.2(L) 32.3 - 35.7 g/dL [facility]3] RDW CV 15.5(H) 11.1 - 14.9 % [facility]3] RDW SD 49.9(H) 35.7 - 48.1 fL [facility]3] NRBC abs 0.02(H) 0.00 - 0.01 K/cumm [facility]3] Blood 10/18/2023 1:54 AM FOUNDRY WORKER GENERAL 10/18/2023 2:14 AM FOUNDRY WORKER GENERAL Byron Olvera NP LAB BLOOD ORDERABLES Fi nal Result Performing Organization Address City/[facility]/ZIP Co de Phone Number [facility]3] [address] [place] [address] * (ABNORMAL) POCT glucose (10/18/2023 12:57 AM FOUNDRY WORKER GENERAL) Glucose, POC 169(H) 70 - 140 mg/dL [facility]3] Comment: For Glucose values <35 mg/dl when Hematocrit is >60 mg/dl,the test may not accurately detect significant hypoglycemia,and testing in the Laboratory should be considered if clinically indicated. Blood 10/18/2023 12:5 7 AM FOUNDRY WORKER GENERAL 10/18/2023 12:57 AM FOUNDRY WORKER GENERAL Jaqueline Valero MD LAB POCT ORDERABLES - APRIL CE Final Result Performing Organization Address [facility] Co de Phone Number [facility])[3] [address] [facility] [place] [address] * (ABNORMAL) POCT glucose (10/18/2023 12:04 AM FOUNDRY WORKER GENERAL) Glucose, POC 150(H) 70 - 140 mg/dL [facility]3] Comment: For Glucose values <35 mg/dl when Hematocrit is >60 mg/dl,the test may not accurately detect significant hypoglycemia,and testing in the Laboratory should be considered if clinically indicated. Blood 10/18/2023 12:0 4 AM FOUNDRY WORKER GENERAL 10/18/2023 12:04 AM FOUNDRY WORKER GENERAL Jaqueline Valero MD LAB POCT ORDERABLES - APRIL CE Final Result Performing Organization Address [facility] Co de Phone Number [facility])[3] [address] [facility] [place] [address] * POCT glucose (10/17/2023 11:00 PM FOUNDRY WORKER GENERAL) Glucose, POC 111 70 - 140 mg/dL [facility]3] Comment: For Glucose values <35 mg/dl when Hematocrit is >60 mg/dl,the test may not accurately detect significant hypoglycemia,and testing in the Laboratory should be considered if clinically indicated. Blood 10/17/2023 11:0 0 PM FOUNDRY WORKER GENERAL 10/17/2023 11:00 PM FOUNDRY WORKER GENERAL Jaqueline Valero MD LAB POCT ORDERABLES - APRIL CE Final Result [facility]3] [address] Department [place] [address] * (ABNORMAL) Blood gas, arterial (10/17/2023 10:56 PM FOUNDRY WORKER GENERAL) Pathologist [facility] pH, Art 7.33(L) 7.35 - 7.45 [facility]3] PCO2, Arterial 38 35 - 45 mmHg [facility]3] PO2, Arterial 102 83 - 108 mmHg [facility]3] HCO3 Art (Calculated) 20 20 - 30 mmol/L [facility]3] BE, art -5 mmol/L [facility]3] Comment: Interpretive Data No Reference Range Established Current Interpretive Data was last revised on 2017 O2 Sat Art (Calculated) 97 94 - 98 % [facility]3] Blood 10/17/2023 10:5 6 PM FOUNDRY WORKER GENERAL 10/17/2023 11:05 PM FOUNDRY WORKER GENERAL Dawna Castellanos [employer]ER LAB BLOOD ORDERABLES Ann Marie l Result [facility]3] [address] Department [place] [address] * (ABNORMAL) Differential, auto (10/17/2023 10:55 PM FOUNDRY WORKER GENERAL) Pathologist [facility] Neutrophil abs 5.7 1.5 - 6.5 K/cumm [facility]3] Imm gran abs 0.1 0.0 - 0.1 K/cumm [facility]3] Lymphocyte abs 0.7(L) 0.8 - 3.3 K/cumm [facility]3] Monocyte abs 1.1(H) 0.2 - 0.8 K/cumm [facility]3] Eosinophil abs 0.1 0.0 - 0.5 K/cumm [facility]3] Basophil abs 0.0 0.0 - 0.1 K/cumm [facility]3] Neutrophil pct 73.6 % [facility]3] Comment: Interpretive Data Percent cell count reference ranges are not reported, since discordance with absolute values may lead to misinterpretation of CBC data. Current Interpretive Data was last revised on 2017. Imm gran pct 1.8 % [facility]3] Comment: Interpretive Data Percent cell count reference ranges are not reported, since discordance with absolute values may lead to misinterpretation of CBC data. Current Interpretive Data was last revised on 2017. Lymphocyte pct 9.3 % [facility]3] Comment: Interpretive Data Percent cell count reference ranges are not reported, since discordance with absolute values may lead to misinterpretation of CBC data. Current Interpretive Data was last revised on 2017. Monocyte pct 13.7 % [facility]3] Comment: Interpretive Data Percent cell count reference ranges are not reported, since discordance with absolute values may lead to misinterpretation of CBC data. Current Interpretive Data was last revised on 2017. Eosinophil pct 1.3 % [facility]3] Comment: Interpretive Data Percent cell count reference ranges are not reported, since discordance with absolute values may lead to misinterpretation of CBC data. Current Interpretive Data was last revised on 2017. Basophil pct 0.3 % [facility]3] Comment: Interpretive Data Percent cell count reference ranges are not reported, since discordance with absolute values may lead to misinterpretation of CBC data. Current Interpretive Data was last revised on 2017. Blood 10/17/2023 10:5 5 PM FOUNDRY WORKER GENERAL 10/17/2023 11:19 PM FOUNDRY WORKER GENERAL Gamal Fox NP LAB BLOOD ORDERABLES Final Result Performing Organization Address City/[facility]/ZIP Co de Phone Number [facility]3] [address] [place] [address] * Lactate (10/17/2023 10:55 PM FOUNDRY WORKER GENERAL) Lactate 0.9 0.7 - 2.0 mmol/L [facility]3] Blood 10/17/2023 10:5 5 PM FOUNDRY WORKER GENERAL 10/17/2023 11:04 PM FOUNDRY WORKER GENERAL Gamal Fox NP LAB BLOOD ORDERABLES Final Result [facility]3] [address] [facility] [place] [address] * Calcium, ionized (10/17/2023 10:55 PM FOUNDRY WORKER GENERAL) [facility] Calcium, Ionized 4.51 4.50 - 5.10 mg/dL [facility]3] Blood 10/17/2023 10:5 5 PM FOUNDRY WORKER GENERAL 10/17/2023 11:05 PM FOUNDRY WORKER GENERAL Gamal Fox LOAN BROKER LAB BLOOD ORDERABLES Final Result Performing Organization Address City/[facility] Co de Phone Number [facility]3] [address] [employer] [place] [address] * (ABNORMAL) CBC with auto differential (10/17/2023 10:55 PM FOUNDRY WORKER GENERAL) [facility] WBC 7.7 3.8 - 9.9 K/cumm [facility]3] Hgb 8.8(L) 13.0 - 17.5 g/dL [facility]3] Hct 27.2(L) 38.9 - 50.3 % [facility]3] Plt 165 150 - 400 K/cumm [facility]3] MPV 11.0 9.1 - 12.3 fL [facility]3] RBC 2.94(L) 4.30 - 5.80 M/cumm [facility]3] MCV 92.5 81.3 - 96.4 fL [facility]3] MCH 29.9 27.1 - 33.3 pg [facility]3] MCHC 32.4 32.3 - 35.7 g/dL [facility]3] RDW CV 15.6(H) 11.1 - 14.9 % [facility]3] RDW SD 50.5(H) 35.7 - 48.1 fL [facility]3] NRBC abs 0.03(H) 0.00 - 0.01 K/cumm [facility]3] Blood 10/17/2023 10:5 5 PM FOUNDRY WORKER GENERAL 10/17/2023 11:19 PM FOUNDRY WORKER GENERAL Gamal Fox NP LAB BLOOD ORDERABLES Final Result Performing Organization Address [facility] Co de Phone Number [facility]3] [address] [place] [address] * POCT glucose (10/17/2023 10:19 PM FOUNDRY WORKER GENERAL) Glucose, POC 97 70 - 140 mg/dL [facility]3] Comment: For Glucose values <35 mg/dl when Hematocrit is >60 mg/dl,the test may not accurately detect significant hypoglycemia,and testing in the Laboratory should be considered if clinically indicated. Blood 10/17/2023 10:1 9 PM FOUNDRY WORKER GENERAL 10/17/2023 10:19 PM FOUNDRY WORKER GENERAL Jaqueline Valero MD LAB POCT ORDERABLES - APRIL CE Final Result Performing Organization Address [facility] de Phone Number [facility]3] [address] [facility] [employer] [place] [address] * POCT glucose (10/17/2023 9:00 PM FOUNDRY WORKER GENERAL) Glucose, POC 127 70 - 140 mg/dL [facility]3] Comment: For Glucose values <35 mg/dl when Hematocrit is >60 mg/dl,the test may not accurately detect significant hypoglycemia,and testing in the Laboratory should be considered if clinically indicated. Blood 10/17/2023 9:00 PM FOUNDRY WORKER GENERAL 10/17/2023 9:00 PM FOUNDRY WORKER GENERAL Jaqueline Valero MD LAB POCT ORDERABLES - APRIL CE Final Result Performing Organization Address [facility] Co de Phone Number [facility])[3] [address] Department [employer] [place], [place] [phone] * Transfuse RBC (10/17/2023 8:13 PM FOUNDRY WORKER GENERAL) Blood Kirsten Burns MD BLOOD TRANSFUSION ORDERA BLES Final Result Performing Organization Address [facility] Co de Phone Number [facility])[3] [address] [place] [address] * Transfuse RBC: 1 Units (10/17/2023 8:13 PM FOUNDRY WORKER GENERAL) Blood Kirsten Burns MD BLOOD TRANSFUSION ORDERA BLES Final Result * (ABNORMAL) POCT glucose (10/17/2023 8:07 PM FOUNDRY WORKER GENERAL) Glucose, POC 157(H) 70 - 140 mg/dL [facility]3] Comment: For Glucose values <35 mg/dl when Hematocrit is >60 mg/dl,the test may not accurately detect significant hypoglycemia,and testing in the Laboratory should be considered if clinically indicated. Blood 10/17/2023 8:07 PM FOUNDRY WORKER GENERAL 10/17/2023 8:07 PM FOUNDRY WORKER GENERAL Result [facility] Jaqueline Valero MD LAB POCT ORDERABLES - APRIL CE Final Result Performing Organization Address [facility] Co de Phone Number [facility])[3] [address] [facility] [employer] [place] [address] * POCT glucose (10/17/2023 7:18 PM FOUNDRY WORKER GENERAL) Glucose, POC 135 70 - 140 mg/dL [facility]3] Comment: For Glucose values <35 mg/dl when Hematocrit is >60 mg/dl,the test may not accurately detect significant hypoglycemia,and testing in the Laboratory should be considered if clinically indicated. Blood 10/17/2023 7:18 PM FOUNDRY WORKER GENERAL 10/17/2023 7:18 PM FOUNDRY WORKER GENERAL Jaqueline Valero MD LAB POCT ORDERABLES - APRIL CE Final Result Performing Organization Address City/[facility]/ZIP Co de Phone Number [facility])[3] [address] [place] [address] * Critical Care (10/17/2023 6:42 PM FOUNDRY WORKER GENERAL) Narrative Kirsten Burns MD - 10/17/2023 6:42 PM FOUNDRY WORKER GENERAL Gamal Fox NP ? 10/18/2023 ??5:08 AM Critical Care Performed by: Gamal Fox NP Authorized by: Gamal Fox NP ?? CRITICAL CARE: ??Team: ??[facility] ??Shift: ??PM ??Level of Billing: ??Critical [...] plan with the ICU team and other medical/lead consultant staff, making frequent assessments and decisions [...] Prepare RBC: 1 Units (10/17/2023 6:34 PM FOUNDRY WORKER GENERAL) Product code [id number] Unit Number [id number] [id number] [facility]3] Product Blood Type APOS [facility]3] Dispense Status RETURNED [facility]3] Blood 10/17/2023 6:34 PM FOUNDRY WORKER GENERAL Narrative [facility]3] - 10/19/2023 7:08 AM FOUNDRY WORKER GENERAL Other indication->Bleeding post cardiac surgery Are special requirements needed? (All products are leukoreduced and CMV- safe)- >No Date required:-[id number] LRRBC # of [id number] Reasons:-Other (specify)} Kirsten Burns MD BLOOD BANK PRODUCT ORDER ROVERTO Final Result Performing Organization Address [facility]/ZIP Co de Phone Number [facility])[3] [address] [facility] [place] [address] * Potassium (10/17/2023 6:14 PM FOUNDRY WORKER GENERAL) [facility] Potassium, pl 4.2 3.3 - 4.9 mmol/L [facility]3] Blood 10/17/2023 6:14 PM FOUNDRY WORKER GENERAL 10/17/2023 6:27 PM FOUNDRY WORKER GENERAL Byron Olvera LOAN BROKER LAB BLOOD ORDERABLES Fi nal Result Performing Organization Address [facility] Co de Phone Number [facility])[3] [address] [employer] [place] [address] * (ABNORMAL) CBC without differential (10/17/2023 6:12 PM FOUNDRY WORKER GENERAL) [facility] WBC 7.2 3.8 - 9.9 K/cumm [facility]3] Hgb 8.0(L) 13.0 - 17.5 g/dL [facility]3] Hct 24.7(L) 38.9 - 50.3 % [facility]3] Plt 161 150 - 400 K/cumm [facility]3] MPV 10.8 9.1 - 12.3 fL [facility])[3] RBC 2.68(L) 4.30 - 5.80 M/cumm [facility])[3] MCV 92.2 81.3 - 96.4 fL [facility])[3] MCH 29.9 27.1 - 33.3 pg [facility]3] MCHC 32.4 32.3 - 35.7 g/dL [facility]3] RDW CV 15.5(H) 11.1 - 14.9 % [facility]3] RDW SD 50.4(H) 35.7 - 48.1 fL [facility]3] NRBC abs 0.04(H) 0.00 - 0.01 K/cumm [facility]3] Blood 10/17/2023 6:12 PM FOUNDRY WORKER GENERAL 10/17/2023 6:18 PM FOUNDRY WORKER GENERAL us Dawna Castellanos LOAN BROKER LAB BLOOD ORDERABLES Ann Marie l Result Performing Organization Address [facility] Co de Phone Number [facility])[3] [address] [facility] [place] [address] * (ABNORMAL) Protime-INR (10/17/2023 6:12 PM FOUNDRY WORKER GENERAL) PT 13.9(H) 10.3 - 13.7 sec [facility]3] INR 1.22(H) 0.90 - 1.20 [facility]3] Comment: Interpretive data Oral anticoagulant therapeutic ranges: Venous thromboembolism prophylaxis or treatment: 2.0-3.0 CARDIOLOGY Standard range: 2.0-3.0 High-intensity range: 2.5-3.5 Refer to indication-specific guidelines for appropriate target ranges for prosthetic heart valve replacement. Current interpretive data was last revised on 2019. Blood 10/17/2023 6:12 PM FOUNDRY WORKER GENERAL 10/17/2023 6:18 PM FOUNDRY WORKER GENERAL [facility] LAB BLOOD ORDERABLES Ann Marie l Result Performing Organization Address [facility] Co de Phone Number [facility])[3] [address] [facility] [employer] [place] [address] * Fibrinogen (10/17/2023 6:12 PM FOUNDRY WORKER GENERAL) Pathologist [facility] Fibrinogen 386 170 - 400 mg/dL [facility]3] Blood 10/17/2023 6:12 PM FOUNDRY WORKER GENERAL 10/17/2023 6:18 PM FOUNDRY WORKER GENERAL [facility] Leeann Peytona LOAN BROKER LAB BLOOD ORDERABLES Ann Marie l Result Performing Organization Address City/[facility] Co de Phone Number [facility])[3] [address] [facility] [employer] [place] [address] * aPTT (10/17/2023 6:12 PM FOUNDRY WORKER GENERAL) aPTT 32 28 - 38 sec [facility]3] Comment: Interpretive Data Heparin therapeutic range: 66.0 - 100.0 seconds. Range based on correlation with therapeutic heparin activity range of 0.3 - 0.7 Units/mL. Current interpretive data was last revised on 2023. Blood 10/17/2023 6:12 PM FOUNDRY WORKER GENERAL 10/17/2023 6:18 PM FOUNDRY WORKER GENERAL Dawna Castellanos LOAN BROKER LAB BLOOD ORDERABLES Ann Marie l Result Performing Organization Address [facility] de Phone Number [facility])[3] [address] [place] [address] * (ABNORMAL) Blood gas, arterial (10/17/2023 6:12 PM FOUNDRY WORKER GENERAL) pH, Art 7.40 7.35 - 7.45 [facility]3] PCO2, Arterial 35 35 - 45 mmHg [facility]3] PO2, Arterial 69(L) 83 - 108 mmHg [facility]3] HCO3 Art (Calculated) 22 20 - 30 mmol/L [facility]3] BE, art -2 mmol/L [facility]3] Comment: Interpretive Data No Reference Range Established Current Interpretive Data was last revised on 2017 O2 Sat Art (Calculated) 94 94 - 98 % [facility]3] Blood 10/17/2023 6:12 PM FOUNDRY WORKER GENERAL 10/17/2023 6:15 PM FOUNDRY WORKER GENERAL Dawna Castellanos LOAN BROKER LAB BLOOD ORDERABLES Ann Marie l Result Performing Organization Address [facility] Co de Phone Number [facility])[3] [address] [place] [address] * POCT glucose (10/17/2023 6:11 PM FOUNDRY WORKER GENERAL) Glucose, POC 130 70 - 140 mg/dL [facility]3] Comment: For Glucose values <35 mg/dl when Hematocrit is >60 mg/dl,the test may not accurately detect significant hypoglycemia,and testing in the Laboratory should be considered if clinically indicated. Blood 10/17/2023 6:11 PM FOUNDRY WORKER GENERAL 10/17/2023 6:11 PM FOUNDRY WORKER GENERAL Jaqueline Valero MD LAB POCT ORDERABLES - APRIL CE Final Result Performing Organization Address [facility] Co de Phone Number [facility])[3] [address] [place] [address] * Transfuse plasma Standard plasma (10/17/2023 5:46 PM FOUNDRY WORKER GENERAL) Blood Kirsten Burns MD BLOOD TRANSFUSION ORDERA BLES Final Result Performing Organization Address [facility] Co de Phone Number [facility])[3] [address] [place] [place] [address] * Transfuse plasma: 1 Units Standard plasma (10/17/2023 5:46 PM FOUNDRY WORKER GENERAL) Blood Kirsten Burns MD BLOOD TRANSFUSION ORDERA BLES Final Result * Prepare plasma: 1 Units Standard plasma (10/17/2023 5:09 PM FOUNDRY WORKER GENERAL) Product code [id number] Unit Number [id number] [facility]3] Product Blood Type APOS [facility]3] Dispense Status PRESUMED TRANSFUSED [facility]3] Blood (Blood, Venous) 10/17/2023 5:09 PM FOUNDRY WORKER GENERAL Narrative [facility]3] - 10/17/2023 10:15 PM FOUNDRY WORKER GENERAL Is this plasma order intended for a COVID-19 patient as convalescent plasma?->Standard plasma Special Requirements Needed?->No Date required:-[id number] FFP # of Units:-1-Units Reasons:-Active major bleeding with coagulopathy} Kirsten Burns MD BLOOD BANK PRODUCT ORDER ROVERTO Final Result Performing Organization Address [facility] Co de Phone Number [facility])[3] [address] Department [place] [employer] [place] [address] * POCT glucose (10/17/2023 4:50 PM FOUNDRY WORKER GENERAL) Glucose, POC 110 70 - 140 mg/dL [facility]3] Comment: For Glucose values <35 mg/dl when Hematocrit is >60 mg/dl,the test may not accurately detect significant hypoglycemia,and testing in the Laboratory should be considered if clinically indicated. Blood 10/17/2023 4:50 PM FOUNDRY WORKER GENERAL 10/17/2023 4:50 PM FOUNDRY WORKER GENERAL Result [facility] Jaqueline Valero MD LAB POCT ORDERABLES - APRIL CE Final Result Performing Organization Address [facility] Co de Phone Number [facility])[3] [address] Department of [employer] [place], [place] [id number] * Transfuse plasma Standard plasma (10/17/2023 4:33 PM FOUNDRY WORKER GENERAL) Blood Result [facility] Kirsten Burns MD BLOOD TRANSFUSION ORDERA BLES Final Result Performing Organization Address [facility] de Phone Number [facility])[3] [address] Department [place] [employer] [place] [address] * Transfuse plasma: 1 Units Standard plasma (10/17/2023 4:33 PM FOUNDRY WORKER GENERAL) Blood Result [facility] Kirsten Burns MD BLOOD TRANSFUSION ORDERA BLES Final Result * Transfuse RBC (10/17/2023 4:33 PM FOUNDRY WORKER GENERAL) Blood Result [facility] Kirsten Burns MD BLOOD TRANSFUSION ORDERA BLES Final Result Performing Organization Address [facility] de Phone Number [facility])[3] [address] Department [employer] [place], [place] [id number] * Transfuse RBC: 1 Units (10/17/2023 4:33 PM FOUNDRY WORKER GENERAL) Blood Result [facility] Kirsten Burns MD BLOOD TRANSFUSION ORDERA BLES Final Result * (ABNORMAL) CBC without differential (10/17/2023 4:32 PM FOUNDRY WORKER GENERAL) [facility] WBC 7.2 3.8 - 9.9 K/cumm [facility]3] Hgb 8.5(L) 13.0 - 17.5 g/dL [facility]3] Hct 26.4(L) 38.9 - 50.3 % [facility]3] Plt 166 150 - 400 K/cumm [facility]3] MPV 10.9 9.1 - 12.3 fL [facility]3] RBC 2.85(L) 4.30 - 5.80 M/cumm [facility]3] MCV 92.6 81.3 - 96.4 fL [facility]3] MCH 29.8 27.1 - 33.3 pg [facility]3] MCHC 32.2(L) 32.3 - 35.7 g/dL [facility]3] RDW CV 15.5(H) 11.1 - 14.9 % [facility]3] RDW SD 51.4(H) 35.7 - 48.1 fL [facility]3] NRBC abs 0.06(H) 0.00 - 0.01 K/cumm [facility]3] Blood 10/17/2023 4:32 PM FOUNDRY WORKER GENERAL 10/17/2023 4:37 PM FOUNDRY WORKER GENERAL Dawna Castellanos LOAN BROKER LAB BLOOD ORDERABLES Ann Marie kramer Result [facility]3] [address] [place] [address] * (ABNORMAL) aPTT (10/17/2023 4:32 PM FOUNDRY WORKER GENERAL) [facility] aPTT 63(H) 28 - 38 sec [facility]3] Comment: Interpretive Data Heparin therapeutic range: 66.0 - 100.0 seconds. Range based on correlation with therapeutic heparin activity range of 0.3 - 0.7 Units/mL. Current interpretive data was last revised on 2023. Blood 10/17/2023 4:32 PM FOUNDRY WORKER GENERAL 10/17/2023 4:37 PM FOUNDRY WORKER GENERAL Dawna Castellanos LOAN BROKER LAB BLOOD ORDERABLES Ann Marie l Result [facility]3] [address] [facility] [place] [address] * Fibrinogen (10/17/2023 4:32 PM FOUNDRY WORKER GENERAL) [facility] Fibrinogen 393 170 - 400 mg/dL [facility]3] Blood 10/17/2023 4:32 PM FOUNDRY WORKER GENERAL 10/17/2023 4:37 PM FOUNDRY WORKER GENERAL Dawna Bradshaw Castellanos LOAN BROKER LAB BLOOD ORDERABLES Ann Marie l Result Performing Organization Address [facility] Co de Phone Number [facility])[3] [address] [facility] [place] [address] * (ABNORMAL) Protime-INR (10/17/2023 4:32 PM FOUNDRY WORKER GENERAL) [facility] PT 14.0(H) 10.3 - 13.7 sec [facility]3] INR 1.23(H) 0.90 - 1.20 [facility]3] Comment: Interpretive data Oral anticoagulant therapeutic ranges: Venous thromboembolism prophylaxis or treatment: 2.0-3.0 CARDIOLOGY Standard range: 2.0-3.0 High-intensity range: 2.5-3.5 Refer to indication-specific guidelines for appropriate target ranges for prosthetic heart valve replacement. Current interpretive data was last revised on 2019. Blood 10/17/2023 4:32 PM FOUNDRY WORKER GENERAL 10/17/2023 4:37 PM FOUNDRY WORKER GENERAL Dawna Bradshaw Peytona LOAN BROKER LAB BLOOD ORDERABLES Ann Marie l Result Performing Organization Address City/[facility]/ZIP Co de Phone Number [facility])[3] [address] [facility] [employer] [place], [place] [id number] * (ABNORMAL) Blood gas, arterial (10/17/2023 4:32 PM FOUNDRY WORKER GENERAL) Pathologist [facility] pH, Art 7.31(L) 7.35 - 7.45 [facility]3] PCO2, Arterial 45 35 - 45 mmHg [facility]3] PO2, Arterial 72(L) 83 - 108 mmHg [facility]3] HCO3 Art (Calculated) 23 20 - 30 mmol/L [facility]3] BE, art -4 mmol/L [facility]3] Comment: Interpretive Data No Reference Range Established Current Interpretive Data was last revised on 2017 O2 Sat Art (Calculated) 93(L) 94 - 98 % [facility] ([facility]3] Blood 10/17/2023 4:32 PM [employer]DR[employer] WORKER GENERAL 10/17/2023 4:35 PM FOUNDRY WORKER GENERAL Dawna Castellanos LOAN BROKER LAB BLOOD ORDERABLES Ann Marie l Result Performing Organization Address City/[facility]/ZIP Co de Phone Number [facility] ([facility])[3] [address] [place] [address] * POCT glucose (10/17/2023 3:51 PM FOUNDRY WORKER GENERAL) [facility] Glucose, POC 98 70 - 140 mg/dL [facility] ([facility])[3] Comment: For Glucose values <35 mg/dl when Hematocrit is >60 mg/dl,the test may not accurately detect significant hypoglycemia,and testing in the Laboratory should be considered if clinically indicated. Blood 10/17/2023 3:51 PM [employer]OUNDRY WORKER GENERAL 10/17/2023 3:51 PM [employer] WORKER GENERAL Jaqueline Valero MD LAB POCT ORDERABLES - APRIL CE Final Result Performing Organization Address [facility]/ZIP Co de Phone Number [facility] ([facility])[3] [address] [place] [address] * Prepare plasma: 1 Units Standard plasma (10/17/2023 3:32 PM FOUNDRY WORKER GENERAL) Pathologist [facility] Product code [id number] Unit Number [id number] [facility]3] Product Blood Type APOS [facility]3] Dispense Status PRESUMED TRANSFUSED [facility])[3] Blood (Blood, Venous) 10/17/2023 3:32 PM [employer]OUN[employer]Y WORKER GENERAL Narrative [facility])[3] - 10/17/2023 10:15 PM FOUNDRY WORKER GENERAL Is this plasma order intended for a COVID-19 patient as convalescent plasma?->Standard plasma Special Requirements Needed?->No Date required:-[id number] FFP # of Units:-1-Units Reasons:-Active major bleeding with coagulopathy} Result [facility] Kirsten Burns MD BLOOD BANK PRODUCT ORDER ROVERTO Final Result Performing Organization Address [facility] de Phone Number [facility])[3] [address] [place] [address] * Prepare RBC: 1 Units (10/17/2023 3:32 PM FOUNDRY WORKER GENERAL) [facility] Product code [id number] Unit Number [id number] [facility]3] Product Blood Type APOS [facility])[3] Dispense Status RETURNED [facility])[3] Blood 10/17/2023 3:32 PM FOUNDRY WORKER GENERAL Narrative [facility])[3] - 10/19/2023 7:08 AM FOUNDRY WORKER GENERAL Are special requirements needed? (All products are leukoreduced and CMV- safe)- >No Date required:-[id number] LRRBC # of [id number] Reasons:-Hemorrhagic shock/Life-threatening bleeding} Result [facility] Kirsten Burns MD BLOOD BANK PRODUCT ORDER ROVERTO Final Result Performing Organization Address [facility] de Phone Number [facility])[3] [address] [place] [address] * POCT glucose (10/17/2023 2:34 PM FOUNDRY WORKER GENERAL) [facility] Glucose, POC 102 70 - 140 mg/dL [facility])[3] Comment: For Glucose values <35 mg/dl when Hematocrit is >60 mg/dl,the test may not accurately detect significant hypoglycemia,and testing in the Laboratory should be considered if clinically indicated. Blood 10/17/2023 2:34 PM FOUNDRY WORKER GENERAL 10/17/2023 2:34 PM FOUNDRY WORKER GENERAL Result [facility] Jaqueline Valero MD LAB POCT ORDERABLES - APRIL CE Final Result Performing Organization Address [facility] de Phone Number [facility])[3] [address] Department [place] [address] * XR Chest 1 View - Portable (10/17/2023 1:49 PM FOUNDRY WORKER GENERAL) Anatomical Region Laterality Modality Body, Chest N/A Computed Radiogr aphy 10/17/2023 2:01 PM FOUNDRY WORKER GENERAL Impressions 10/17/2023 2:01 PM FOUNDRY WORKER GENERAL Comparison is made to two-view chest radiograph dated 10/16/2023. ??Endotracheal tube projects approximately 4.5 cm above the boni. ??Interval postoperative changes of median sternotomy with sternal wires, sternal plating, for aortic valve replacement. ??Right internal jugular central venous catheter overlies the superior vena cava. ??Phoenix-Daniel catheter tip projects over the main pulmonary artery. ??Left thoracostomy tube and mediastinal drain. ??Gastric tube courses caudally beneath left hemidiaphragm out of the [id number]. Lung volumes are small with minimal bibasilar atelectasis, left greater than right. ??Possible trace left pleural effusion. ??No pneumothorax. Electronically signed by: Tania Malone M.D. Narrative 10/17/2023 2:01 PM FOUNDRY WORKER GENERAL EXAMINATION: 1 view chest radiograph Procedure Note Tania Malone MD - 10/17/2023 EXAMINATION: 1 view chest radiograph IMPRESSION: Comparison is made to two-view chest radiograph dated 10/16/2023. Endotracheal tube projects approximately 4.5 cm above the boni. Interval postoperative changes of median sternotomy with sternal wires, sternal plating, for aortic valve replacement. Right internal jugular central venous catheter overlies the superior vena cava. Phoenix-Daniel catheter tip projects over the main pulmonary artery. Left thoracostomy tube and mediastinal drain. Gastric tube courses caudally beneath left hemidiaphragm out of the [id number]. Lung volumes are small with minimal bibasilar atelectasis, left greater than right. Possible trace left pleural effusion. No pneumothorax. Electronically signed by: Tania Malone M.D. Dawna Castellanos LOAN BROKER IMG XR PROCEDURES Final R esult * Critical Care (10/17/2023 1:44 PM FOUNDRY WORKER GENERAL) Narrative Kirsten Burns MD - 10/17/2023 1:44 PM FOUNDRY WORKER GENERAL Dawna Castellanos NP ? 10/17/2023 ??4:35 PM Critical Care Performed by: Dawna Castellanos NP Authorized by: Dawna Castellanos NP ?? CRITICAL CARE: ??Team: ??[facility] ??Shift: ??AM ??Level of Billing: ??Critical [...] plan with the ICU team and other medical/lead consultant staff, making frequent assessments and decisions [...] monitors, laboratory results, and imaging Dawna Castellanos LOAN BROKER IN CLINIC/BEDSIDE ORDERAB LES Final Result * eGFR (10/17/2023 1:27 PM FOUNDRY WORKER GENERAL) [facility] eGFR 5 mL/min/1. 73 m2 [facility]3] Comment: Interpretive Data Reference Interval Normal ?>/= [...] last reviewed 2021. Blood 10/17/2023 1:27 PM FOUNDRY WORKER GENERAL 10/17/2023 1:37 PM FOUNDRY WORKER GENERAL Dawna Castellanos LOAN BROKER LAB BLOOD ORDERABLES Ann Marie l Result Performing Organization Address [facility]/ZIP Co de Phone Number [facility])[3] [address] Department [place] [address] * Fibrinogen (10/17/2023 1:27 PM FOUNDRY WORKER GENERAL) Fibrinogen 393 170 - 400 mg/dL [facility])[3] Blood 10/17/2023 1:27 PM FOUNDRY WORKER GENERAL 10/17/2023 1:37 PM FOUNDRY WORKER GENERAL Dawna Castellanos LOAN BROKER LAB BLOOD ORDERABLES Ann Marie l Result [facility])[3] [address] Department [place] [address] * Lactate (10/17/2023 1:27 PM FOUNDRY WORKER GENERAL) Lactate 1.2 0.7 - 2.0 mmol/L [facility])[3] Blood 10/17/2023 1:27 PM FOUNDRY WORKER GENERAL 10/17/2023 1:33 PM FOUNDRY WORKER GENERAL Dawna Castellanos LOAN BROKER LAB BLOOD ORDERABLES Ann Marie l Result Performing Organization Address [facility] Co de Phone Number [facility])[3] [address] [facility] [place] [address] * aPTT (10/17/2023 1:27 PM FOUNDRY WORKER GENERAL) aPTT 37 28 - 38 sec [facility])[3] Comment: Interpretive Data Heparin therapeutic range: 66.0 - 100.0 seconds. Range based on correlation with therapeutic heparin activity range of 0.3 - 0.7 Units/mL. Current interpretive data was last revised on 2023. Blood 10/17/2023 1:27 PM FOUNDRY WORKER GENERAL 10/17/2023 1:37 PM FOUNDRY WORKER GENERAL Dawna Bradshaw [employer] LAB BLOOD ORDERABLES Ann Marie l Result Performing Organization Address [facility] de Phone Number [facility])[3] [address] [facility] [place] [address] * (ABNORMAL) Protime-INR (10/17/2023 1:27 PM FOUNDRY WORKER GENERAL) PT 14.7(H) 10.3 - 13.7 sec [facility])[3] INR 1.29(H) 0.90 - 1.20 [facility])[3] Comment: Interpretive data Oral anticoagulant therapeutic ranges: Venous thromboembolism prophylaxis or treatment: 2.0-3.0 CARDIOLOGY Standard range: 2.0-3.0 High-intensity range: 2.5-3.5 Refer to indication-specific guidelines for appropriate target ranges for prosthetic heart valve replacement. Current interpretive data was last revised on 2019. Blood 10/17/2023 1:27 PM FOUNDRY WORKER GENERAL 10/17/2023 1:37 PM FOUNDRY WORKER GENERAL Dawna [employer] LAB BLOOD ORDERABLES Ann Marie l Result Performing Organization Address [facility] Co de Phone Number [facility])[3] [address] [facility] [place] [address] * (ABNORMAL) CBC without differential (10/17/2023 1:27 PM FOUNDRY WORKER GENERAL) Pathologist [facility] WBC 7.4 3.8 - 9.9 K/cumm [facility])[3] Hgb 8.4(L) 13.0 - 17.5 g/dL [facility])[3] Hct 26.0(L) 38.9 - 50.3 % [facility])[3] Plt 167 150 - 400 K/cumm [facility])[3] MPV 10.7 9.1 - 12.3 fL [facility])[3] RBC 2.85(L) 4.30 - 5.80 M/cumm [facility])[3] MCV 91.2 81.3 - 96.4 fL [facility])[3] MCH 29.5 27.1 - 33.3 pg [facility])[3] MCHC 32.3 32.3 - 35.7 g/dL [facility])[3] RDW CV 15.4(H) 11.1 - 14.9 % [facility])[3] RDW SD 49.8(H) 35.7 - 48.1 fL [facility])[3] NRBC abs 0.06(H) 0.00 - 0.01 K/cumm [facility])[3] Blood 10/17/2023 1:27 PM FOUNDRY WORKER GENERAL 10/17/2023 1:37 PM FOUNDRY WORKER GENERAL Dawna Castellanos LOAN BROKER LAB BLOOD ORDERABLES Ann Marie kramer Result [facility])[3] [address] Department [place] [address] * (ABNORMAL) Blood gas, arterial (10/17/2023 1:27 PM FOUNDRY WORKER GENERAL) Pathologist [facility] pH, Art 7.36 7.35 - 7.45 [facility])[3] PCO2, Arterial 42 35 - 45 mmHg [facility]3] PO2, Arterial 65(L) 83 - 108 mmHg [facility]3] HCO3 Art (Calculated) 24 20 - 30 mmol/L [facility]3] BE, art -2 mmol/L [facility]3] Comment: Interpretive Data No Reference Range Established Current Interpretive Data was last revised on 2017 O2 Sat Art (Calculated) 92(L) 94 - 98 % [facility])[3] Blood 10/17/2023 1:27 PM FOUNDRY WORKER GENERAL 10/17/2023 1:33 PM FOUNDRY WORKER GENERAL Dawna Bradshaw [employer] LOAN BROKER LAB BLOOD ORDERABLES Ann Marie l Result Performing Organization Address [facility] Co de Phone Number [facility])[3] [address] [facility] [place] [address] * Calcium, ionized (10/17/2023 1:27 PM FOUNDRY WORKER GENERAL) [facility] Calcium, Ionized 4.51 4.50 - 5.10 mg/dL [facility]3] Blood 10/17/2023 1:27 PM FOUNDRY WORKER GENERAL 10/17/2023 1:34 PM FOUNDRY WORKER GENERAL Dawna Castellanos LOAN BROKER LAB BLOOD ORDERABLES Ann Marie l Result Performing Organization Address [facility] Co de Phone Number [facility])[3] [address] Department [place] [address] * Magnesium (10/17/2023 1:27 PM FOUNDRY WORKER GENERAL) [facility] Magnesium 2.3 1.4 - 2.5 mg/dL [facility]3] Blood 10/17/2023 1:27 PM FOUNDRY WORKER GENERAL 10/17/2023 1:37 PM FOUNDRY WORKER GENERAL Dawna Mcginnisisaias Castellanos LOAN BROKER LAB BLOOD ORDERABLES Ann Marie l Result Performing Organization Address [facility] Co de Phone Number [facility]3] [address] [facility] [place] [address] * (ABNORMAL) Basic metabolic panel (10/17/2023 1:27 PM FOUNDRY WORKER GENERAL) [facility] Sodium 139 135 - 145 mmol/L [facility]3] Potassium, pl 3.8 3.3 - 4.9 mmol/L [facility]3] Chloride 98 97 - 110 mmol/L [facility]3] CO2 23 22 - 32 mmol/L [facility]3] Anion gap 18(H) 2 - 15 mmol/L [facility]3] BUN 75(H) 6 - 25 mg/dL [facility]3] Creatinine 10.43(H) 0.80 - 1.30 mg/dL [facility]3] Glucose 119 70 - 199 mg/dL [facility]3] Comment: Interpretive Data Fasting glucose >/= 126 [...] 2022. Calcium 8.9 8.5 - 10.3 mg/dL [facility]3] Blood 10/17/2023 1:2 7 PM FOUNDRY WORKER GENERAL 10/17/2023 1:37 PM FOUNDRY WORKER GENERAL Dawna Castellanos [employer] LAB BLOOD ORDERABLES Ann Marie l Result [facility]3] [address] [employer] [place], [place] [id number] * (ABNORMAL) Phosphorus (10/17/2023 1:27 PM FOUNDRY WORKER GENERAL) Phosphorus, pl 6.1(H) 2.3 - 4.5 mg/dL [facility]3] Blood 10/17/2023 1:27 PM FOUNDRY WORKER GENERAL 10/17/2023 1:37 PM FOUNDRY WORKER GENERAL Dawna Castellanos [employer] LAB BLOOD ORDERABLES Ann Marie l Result [facility]3] [address] [facility] [place] [address] * POCT glucose (10/17/2023 1:25 PM FOUNDRY WORKER GENERAL) Glucose, POC 137 70 - 140 mg/dL [facility]3] Comment: For Glucose values <35 mg/dl when Hematocrit is >60 mg/dl,the test may not accurately detect significant hypoglycemia,and testing in the Laboratory should be considered if clinically indicated. Blood 10/17/2023 1:25 PM FOUNDRY WORKER GENERAL 10/17/2023 1:25 PM FOUNDRY WORKER GENERAL Jovani Kat DO LAB POCT ORDERABLES - DE VICE Final Result Performing Organization Address City/[facility]/ZIP Co de Phone Number [facility]3] [address] Department [place] [address] * POC Activated Clotting Time, High Range (10/17/2023 12:26 PM FOUNDRY WORKER GENERAL) [facility] ACT 104 87 - 138 sec [facility]3] Blood 10/17/2023 12:2 6 PM FOUNDRY WORKER GENERAL 10/17/2023 12:26 PM FOUNDRY WORKER GENERAL Jaqueline Valero MD LAB BLOOD ORDERABLES Final Result Performing Organization Address [facility]/ZIP Co de Phone Number [facility]3] [address] [place] [address] * (ABNORMAL) POC Blood Gas and Chemistries, Arterial - (10/17/2023 12:26 PM FOUNDRY WORKER GENERAL) [facility] pH, Art POC 7.31(L) 7.35 - 7.45 [facility]3] pCO2, Art POC 48(H) 35 - 45 mmHg [facility]3] pO2, Art POC 112(H) 80 - 108 mmHg [facility]3] Na, POC 134(L) 135 - 145 mmol/L [facility]3] K POC 4.0 3.3 - 4.9 mmol/L [facility]3] Comment: Interpretive Data This method is not able to assess for hemolysis, which may falsely increase potassium concentrations. If further testing is needed to evaluate this result, consider in-laboratory plasma potassium. Current Interpretive Data was last revised on 2022. Cl, POC 97 97 - 110 mmol/L [facility]3] Ionized Ca, POC 4.80 4.50 - 5.10 mg/dL [facility]3] Glucose, POC 147 70 - 199 mg/dL [facility]3] Lactate, POC 2.9(H) 0.0 - 2.0 mmol/L [facility]3] O2Hb, Art POC 96.7(H) 90.0 - 95.0 % [facility]3] Carboxhgb fract 0.8 0.0 - 2.9 % [facility]3] Methemoglobin 0.6 0.0 - 1.9 % [facility]3] HHb, POC 1.9 0.0 - 5.0 % [facility]3] SO2 (oren) arterial 98(H) 90 - 95 % [facility]3] Total CO2, Art POC 26 22 - 32 mmol/L [facility]3] BE, art, POC -2.1(L) -2.0 - 2.0 mmol/L [facility]3] HCO3, Art POC 23 20 - 30 mmol/L [facility]3] Hct, POC 24.0(L) 38.9 - 50.3 % [facility]3] Total Hb, POC 8.1(L) 13.0 - 17.5 g/dL [facility]3] Blood 10/17/2023 12:2 6 PM [employer] WORK[employer] GENER[employer] 10/17/2023 12:26 PM [employer] WORKER GENERAL Jovani Kat DO LAB POCT ORDERABLES - DE VICE Final Result Performing Organization Address [facility]/ZIP Co de Phone Number [facility]3] [address] [facility] [place] [address] * Transfuse platelets (10/17/2023 12:24 PM FOUNDRY WORKER GENERAL) Blood Ayden Alan MD BLOOD TRANSFUSION ORDERABLES F inal Result [facility]3] [address] Department [place] [address] * Transfuse RBC (10/17/2023 12:11 PM FOUNDRY WORKER GENERAL) Blood us Ayden Alan MD BLOOD TRANSFUSION ORDERABLES F inal Result Performing Organization Address [facility] Co de Phone Number [facility])[3] [address] [facility] [employer] [place], [place] [id number] * Prepare RBC: 2 Units (10/17/2023 12:11 PM FOUN[employer]Y WORKER GENERAL) Product code [id number] Unit Number [id number] [facility]3] Product Blood Type APOS [facility]3] Dispense Status PRESUMED TRANSFUSED [facility]3] Product code [id number] [facility] Unit Number [id number] [facility]3] Product Blood Type APOS [facility]3] Dispense Status PRESUMED TRANSFUSED [facility]3] Blood 10/17/2023 12:1 1 PM [employer] WORKER GENERAL Narrative [facility]3] - 10/18/2023 10:15 PM [employer]Y WORKER GENERAL Are special requirements needed? (All products are leukoreduced and CMV- safe)- >No Date required:-[id number] LRRBC # of [id number] Reasons:-Intra-op transfusion} Jaqueline Valero MD BLOOD BANK PRODUCT ORDERAB LES Final Result Performing Organization Address [facility] Co de Phone Number [facility]3] [address] Department [employer] [place], [place] [id number] * Transfuse cryoprecipitate (pooled units) (10/17/2023 12:05 PM [employer] WORKER GENERAL) Blood Ayden Alan MD BLOOD TRANSFUSION ORDERABLES F inal Result Performing Organization Address [facility] Co de Phone Number [facility]3] [address] [facility] [employer] [place], [place] [id number] * Transfuse cryoprecipitate (pooled units) (10/17/2023 12:05 PM [employer]) Blood us Ayden Alan MD BLOOD TRANSFUSION ORDERABLES F inal Result Performing Organization Address [facility] Co de Phone Number [facility])[3] [address] [facility] [place] [address] * Transfuse plasma (10/17/2023 12:04 PM [employer]) Blood us Ayden Alan MD BLOOD TRANSFUSION ORDERABLES F inal Result [facility]3] [address] [place] [address] * Transfuse plasma (10/17/2023 12:04 PM [employer]) Blood us Ayden Alan MD BLOOD TRANSFUSION ORDERABLES F inal Result Performing Organization Address City/[facility]/ZIP Co de Phone Number [facility])[3] [address] [place] [address] * (ABNORMAL) POC Blood Gas and Chemistries, Arterial - (10/17/2023 11:51 AM [employer]) Pathologist [facility] pH, Art POC 7.36 7.35 - 7.45 [facility]3] pCO2, Art POC 39 35 - 45 mmHg [facility]3] pO2, Art POC 407(H) 80 - 108 mmHg [facility]3] Na, POC 131(L) 135 - 145 mmol/L [facility]3] K POC 5.5(H) 3.3 - 4.9 mmol/L [facility]3] Comment: Interpretive Data This method is not able to assess for hemolysis, which may falsely increase potassium concentrations. If further testing is needed to evaluate this result, consider in-laboratory plasma potassium. Current Interpretive Data was last revised on 2022. Cl, POC 97 97 - 110 mmol/L [facility]3] Ionized Ca, POC 3.99(L) 4.50 - 5.10 mg/dL [facility]3] Glucose, POC 115 70 - 199 mg/dL [facility]3] Lactate, POC 2.8(H) 0.0 - 2.0 mmol/L [facility]3] O2Hb, Art POC 97.2(H) 90.0 - 95.0 % [facility]3] Carboxhgb fract 0.0 0.0 - 2.9 % [facility]3] Methemoglobin 0.9 0.0 - 1.9 % [facility]3] HHb, POC 1.9 0.0 - 5.0 % [facility]3] SO2 (oren) arterial 98(H) 90 - 95 % [facility]3] Total CO2, Art POC 23 22 - 32 mmol/L [facility]3] BE, art, POC -3.2(L) -2.0 - 2.0 mmol/L [facility]3] HCO3, Art POC 22 20 - 30 mmol/L [facility]3] Hct, POC 24.0(L) 38.9 - 50.3 % [facility]3] Total Hb, POC 7.9(L) 13.0 - 17.5 g/dL [facility]3] Blood 10/17/2023 11:5 1 AM [employer] 10/17/2023 11:51 AM [employer] us Jovani Kat DO LAB POCT ORDERABLES - DE VICE Final Result [facility])[3] [address] Department [employer] [place], [place] [id number] * (ABNORMAL) POC Activated Clotting Time, High Range (10/17/2023 11:50 AM [employer]) ACT 507(H) 87 - 138 sec [facility]3] Blood 10/17/2023 11:5 0 AM [employer] 10/17/2023 11:50 AM [employer] Jaqueline Valero MD LAB BLOOD ORDERABLES Final Result [facility])[3] [address] Department [employer] [place], [place] [id number] * (ABNORMAL) POC Activated Clotting Time, High Range (10/17/2023 11:22 AM [employer]) ACT 582(H) 87 - 138 sec [facility]3] Blood 10/17/2023 11:2 2 AM [employer] 10/17/2023 11:22 AM [employer] us Jaqueline Valero MD LAB BLOOD ORDERABLES Final Result [facility])[3] [address] [place] [address] * (ABNORMAL) POC Blood Gas and Chemistries, Arterial - (10/17/2023 11:20 AM [employer]) pH, Art POC 7.32(L) 7.35 - 7.45 [facility]3] pCO2, Art POC 41 35 - 45 mmHg [facility]3] pO2, Art POC 362(H) 80 - 108 mmHg [facility]3] Na, POC 130(L) 135 - 145 mmol/L [facility]3] K POC 4.5 3.3 - 4.9 mmol/L [facility]3] Comment: Interpretive Data This method is not able to assess for hemolysis, which may falsely increase potassium concentrations. If further testing is needed to evaluate this result, consider in-laboratory plasma potassium. Current Interpretive Data was last revised on 2022. Cl, POC 97 97 - 110 mmol/L [facility]3] Ionized Ca, POC 4.19(L) 4.50 - 5.10 mg/dL [facility]3] Glucose, POC 133 70 - 199 mg/dL [facility]3] Lactate, POC 2.1(H) 0.0 - 2.0 mmol/L [facility]3] O2Hb, Art POC 97.8(H) 90.0 - 95.0 % [facility]3] Carboxhgb fract 0.1 0.0 - 2.9 % [facility]3] Methemoglobin 0.5 0.0 - 1.9 % [facility]3] HHb, POC 1.6 0.0 - 5.0 % [facility]3] SO2 (oren) arterial 98(H) 90 - 95 % [facility]3] Total CO2, Art POC 22 22 - 32 mmol/L [facility]3] BE, art, POC -4.7(L) -2.0 - 2.0 mmol/L [facility]3] HCO3, Art POC 21 20 - 30 mmol/L [facility]3] Hct, POC 25.0(L) 38.9 - 50.3 % [facility]3] Total Hb, POC 8.2(L) 13.0 - 17.5 g/dL [facility])[3] Blood 10/17/2023 11:2 0 AM [employer] 10/17/2023 11:20 AM [employer] Jovani Kat DO LAB POCT ORDERABLES - DE VICE Final Result Performing Organization Address [facility] Co de Phone Number [facility])[3] [address] [facility] [place] [address] * (ABNORMAL) POC Activated Clotting Time, High Range (10/17/2023 11:05 AM [employer] WORK[employer]) ACT 533(H) 87 - 138 sec [facility]3] Blood 10/17/2023 11:0 5 AM [employer] WORK[employer] 10/17/2023 11:05 AM [employer] us Jaqueline Valero MD LAB BLOOD ORDERABLES Final Result Performing Organization Address [facility] Co de Phone Number [facility])[3] [address] [facility] [place] [address] * (ABNORMAL) POC Activated Clotting Time, High Range (10/17/2023 10:53 AM [employer] WORK[employer]) ACT 494(H) 87 - 138 sec [facility]3] Blood 10/17/2023 10:5 3 AM [employer] WORK[employer] 10/17/2023 10:53 AM [employer] WORK[employer] Jaqueline Valero MD LAB BLOOD ORDERABLES Final Result Performing Organization Address [facility] Co de Phone Number [facility])[3] [address] [facility] [place] [address] * (ABNORMAL) POC Activated Clotting Time, High Range (10/17/2023 10:38 AM [employer] WORK[employer]) ACT 583(H) 87 - 138 sec [facility]3] Blood 10/17/2023 10:3 8 AM [employer] WORK[employer] GENER[employer] 10/17/2023 10:38 AM [employer] WORK[employer] us Jaqueline Valero MD LAB BLOOD ORDERABLES Final Result [facility])[3] [address] Department [place] [address] * (ABNORMAL) POC Blood Gas and Chemistries, Arterial - (10/17/2023 10:38 AM [employer] WORK[employer]) pH, Art POC 7.34(L) 7.35 - 7.45 [facility]3] pCO2, Art POC 42 35 - 45 mmHg [facility]3] pO2, Art POC 357(H) 80 - 108 mmHg [facility]3] Na, POC 132(L) 135 - 145 mmol/L [facility]3] K POC 4.7 3.3 - 4.9 mmol/L [facility])[3] Comment: Interpretive Data This method is not able to assess for hemolysis, which may falsely increase potassium concentrations. If further testing is needed to evaluate this result, consider in-laboratory plasma potassium. Current Interpretive Data was last revised on 2022. Cl, POC 96(L) 97 - 110 mmol/L [facility])[3] Ionized Ca, POC 4.18(L) 4.50 - 5.10 mg/dL [facility]3] Glucose, POC 170 70 - 199 mg/dL [facility])[3] Lactate, POC 1.8 0.0 - 2.0 mmol/L [facility])[3] O2Hb, Art POC 97.7(H) 90.0 - 95.0 % [facility]3] Carboxhgb fract 0.0 0.0 - 2.9 % [facility]3] Methemoglobin 0.7 0.0 - 1.9 % [facility]3] HHb, POC 1.5 0.0 - 5.0 % [facility])[3] SO2 (oren) arterial 98(H) 90 - 95 % [facility]3] Total CO2, Art POC 24 22 - 32 mmol/L [facility]3] BE, art, POC -2.9(L) -2.0 - 2.0 mmol/L [facility]3] HCO3, Art POC 23 20 - 30 mmol/L [facility]3] Hct, POC 24.0(L) 38.9 - 50.3 % [facility]3] Total Hb, POC 8.0(L) 13.0 - 17.5 g/dL [facility])[3] Blood 10/17/2023 10:3 8 AM [employer] WORK[employer] 10/17/2023 10:38 AM [employer] WORK[employer] Jovani Kat DO LAB POCT ORDERABLES - DE VICE Final Result Performing Organization Address City/[facility]/ZIP Co de Phone Number [facility])[3] [address] Department of Laboratories [place], [place] [id number] * (ABNORMAL) POC Activated Clotting Time, High Range (10/17/2023 10:24 AM [employer] WORKER GENERAL) ACT 505(H) 87 - 138 sec [facility]3] Blood 10/17/2023 10:2 4 AM [employer] WORK[employer] GENER[employer] 10/17/2023 10:24 AM [employer] WORK[employer] us Jaqueline Valero MD LAB BLOOD ORDERABLES Final Result Performing Organization Address City/[facility]/ZIP Co de Phone Number [facility])[3] [address] Department [place] [address] * (ABNORMAL) POC Blood Gas and Chemistries, Venous - (10/17/2023 10:21 AM [employer] WORK[employer]) pH, Juice POC 7.27(L) 7.32 - 7.45 [facility]3] pCO2, juice POC 53(H) 40 - 50 mmHg [facility]3] pO2, juice POC 43(H) 35 - 42 mmHg [facility]3] Na, POC 133(L) 135 - 145 mmol/L [facility]3] K POC 4.9 3.3 - 4.9 mmol/L [facility]3] Comment: Interpretive Data This method is not able to assess for hemolysis, which may falsely increase potassium concentrations. If further testing is needed to evaluate this result, consider in-laboratory plasma potassium. Current Interpretive Data was last revised on 2022. Cl, POC 95(L) 97 - 110 mmol/L [facility]3] Ionized Ca, POC 4.19(L) 4.50 - 5.10 mg/dL [facility]3] Glucose, POC 182 70 - 199 mg/dL [facility]3] Lactate, POC 1.5 0.0 - 2.0 mmol/L [facility]3] O2Hb, Juice POC 67.4(L) 90.0 - 95.0 % [facility]3] Carboxhgb fract 0.8 0.0 - 2.9 % [facility]3] Methemoglobin 0.7 0.0 - 1.9 % [facility]3] HHb, POC 31.0(H) 0.0 - 5.0 % [facility]3] O2 Sat, Juice POC (Oren) 68 68 - 77 % [facility]3] Total CO2, juice POC 26 22 - 32 mmol/L [facility]3] Base excess, juice POC -2.6 mmol/L [facility]3] HCO3, Juice POC 22 20 - 30 mmol/L [facility]3] Hct, POC 23.0(L) 38.9 - 50.3 % [facility]3] Total Hb, POC 7.6(L) 13.0 - 17.5 g/dL [facility]3] Blood 10/17/2023 10:2 1 AM [employer] WORK[employer] 10/17/2023 10:21 AM [employer] us Jovani Kat DO LAB POCT ORDERABLES - DE VICE Final Result Performing Organization Address City/[facility]/ZIP Co de Phone Number [facility])[3] [address] [place] [address] * (ABNORMAL) POC Activated Clotting Time, High Range (10/17/2023 10:12 AM [employer] WORKER GENERAL) ACT 467(H) 87 - 138 sec [facility]3] Blood 10/17/2023 10:1 2 AM [employer] WORK[employer] GENER[employer] 10/17/2023 10:12 AM [employer] WORK[employer] GENER[employer] us Jaqueline Valero MD LAB BLOOD ORDERABLES Final Result [facility])[3] [address] [place] [address] * (ABNORMAL) POC Blood Gas and Chemistries, Arterial - (10/17/2023 10:11 AM [employer] WORK[employer]) pH, Art POC 7.25(L) 7.35 - 7.45 [facility]3] pCO2, Art POC 40 35 - 45 mmHg [facility]3] pO2, Art POC 400(H) 80 - 108 mmHg [facility]3] Na, POC 129(L) 135 - 145 mmol/L [facility]3] K POC 4.6 3.3 - 4.9 mmol/L [facility]3] Comment: Interpretive Data This method is not able to assess for hemolysis, which may falsely increase potassium concentrations. If further testing is needed to evaluate this result, consider in-laboratory plasma potassium. Current Interpretive Data was last revised on 2022. Cl, POC 96(L) 97 - 110 mmol/L [facility]3] Ionized Ca, POC 4.08(L) 4.50 - 5.10 mg/dL [facility]3] Glucose, POC 182 70 - 199 mg/dL [facility]3] Lactate, POC 1.3 0.0 - 2.0 mmol/L [facility]3] O2Hb, Art POC 98.1(H) 90.0 - 95.0 % [facility]3] Carboxhgb fract 0.3 0.0 - 2.9 % [facility]3] Methemoglobin 0.6 0.0 - 1.9 % [facility]3] HHb, POC 0.9 0.0 - 5.0 % [facility]3] SO2 (oren) arterial 99(H) 90 - 95 % [facility]3] Total CO2, Art POC 19(L) 22 - 32 mmol/L [facility]3] BE, art, POC -9.0(L) -2.0 - 2.0 mmol/L [facility]3] HCO3, Art POC 18(L) 20 - 30 mmol/L [facility]3] Hct, POC 22.0(L) 38.9 - 50.3 % [facility]3] Total Hb, POC 7.4(L) 13.0 - 17.5 g/dL [facility]3] Blood 10/17/2023 10:1 1 AM [employer] WORK[employer] 10/17/2023 10:11 AM [employer] WORK[employer] GENER[employer] us Jovani Kat DO LAB POCT ORDERABLES - DE VICE Final Result [facility])[3] [address] [place] [address] * (ABNORMAL) POC Blood Gas and Chemistries, Arterial - (10/17/2023 9:47 AM [employer] WORKER [employer]) [facility] pH, Art POC 7.30(L) 7.35 - 7.45 [facility]3] pCO2, Art POC 40 35 - 45 mmHg [facility]3] pO2, Art POC 65(L) 80 - 108 mmHg [facility]3] Na, POC 130(L) 135 - 145 mmol/L [facility]3] K POC 4.3 3.3 - 4.9 mmol/L [facility]3] Comment: Interpretive Data This method is not able to assess for hemolysis, which may falsely increase potassium concentrations. If further testing is needed to evaluate this result, consider in-laboratory plasma potassium. Current Interpretive Data was last revised on 2022. Cl, POC 97 97 - 110 mmol/L [facility]3] Ionized Ca, POC 4.39(L) 4.50 - 5.10 mg/dL [facility]3] Glucose, POC 202(H) 70 - 199 mg/dL [facility]3] Lactate, POC 1.1 0.0 - 2.0 mmol/L [facility]3] O2Hb, Art POC 90.8 90.0 - 95.0 % [facility]3] Carboxhgb fract 0.7 0.0 - 2.9 % [facility]3] Methemoglobin 0.0 0.0 - 1.9 % [facility]3] HHb, POC 8.5(H) 0.0 - 5.0 % [facility]3] SO2 (oren) arterial 91 90 - 95 % [facility]3] Total CO2, Art POC 21(L) 22 - 32 mmol/L [facility]3] BE, art, POC -6.2(L) -2.0 - 2.0 mmol/L [facility]3] HCO3, Art POC 20 20 - 30 mmol/L [facility]3] Hct, POC 26.0(L) 38.9 - 50.3 % [facility]3] Total Hb, POC 8.6(L) 13.0 - 17.5 g/dL [facility]3] Blood 10/17/2023 9:47 AM [employer] 10/17/2023 9:47 AM [employer] us Jovani Kat DO LAB POCT ORDERABLES - DE VICE Final Result Performing Organization Address City/[facility]/ZIP Co de Phone Number [facility]3] [address] [employer] [place], [place] [id number] * (ABNORMAL) POC Activated Clotting Time, High Range (10/17/2023 9:44 AM [employer]) ACT 428(H) 87 - 138 sec [facility]3] Blood 10/17/2023 9:44 AM [employer] 10/17/2023 9:44 AM [employer] us Jaqueline Valero MD LAB BLOOD ORDERABLES Final Result Performing Organization Address City/[facility]/ZIP Co de Phone Number [facility]3] [address] [facility] [place] [address] * Prepare cryoprecipitate (pooled units): 2 Units (10/17/2023 9:12 AM [employer]) Product code [id number] Unit Number [id number] [facility]3] Product Blood Type OPOS [facility]3] Dispense Status PRESUMED TRANSFUSED [facility]3] Product code [id number] [facility]3] Unit Number [id number] I [facility] Product Blood Type OPOS [facility]3] Dispense Status PRESUMED TRANSFUSED [facility]3] Blood (Blood, Venous) 10/17/2023 9:12 AM [employer] WORK[employer] Narrative [facility]3] - 10/17/2023 10:15 PM [employer] WORK[employer] Other indication->CTOR Cryo # of [id number] Reasons:-Other (Specify)} Ayden Alan MD BLOOD BANK PRODUCT ORDERABLES Final Result Performing Organization Address [facility] Co de Phone Number [facility]3] [address]ar[address] Pedro Pablo Alonso [facility] [place] [address] * Prepare plasma: 2 Units (10/17/2023 9:12 AM FOUNDRY WORKER GENERAL) Product code [id number] [facility]3] Unit Number [id number] Y [facility]3] Product Blood Type APOS [facility]3] Dispense Status PRESUMED TRANSFUSED [facility]3] Product code [id number] Unit Number [id number] [facility]3] Product Blood Type ANEG [facility]3] Dispense Status PRESUMED TRANSFUSED [facility]3] Blood (Blood, Venous) 10/17/2023 9:12 AM FOUNDRY WORKER GENERAL Narrative [facility]3] - 10/17/2023 10:15 PM FOUNDRY WORKER GENERAL Other indication->CTOR Date required:-20231017 FFP # of Units:-2-Units Reasons:-Other (Specify)} Ayden Alan MD BLOOD BANK PRODUCT ORDERABLES Final Result Performing Organization Address [facility] de Phone Number [facility]3] [address] [facility] [employer] [place] [address] * Prepare platelets: 1 Units (10/17/2023 9:12 AM FOUNDRY WORKER GENERAL) Product code [id number] Unit Number [id number] A [facility]3] Product Blood Type BPOS [facility]3] Dispense Status PRESUMED TRANSFUSED [facility]3] Blood (Blood, Venous) 10/17/2023 9:12 AM FOUNDRY WORKER GENERAL Narrative [facility]3] - 10/17/2023 10:15 PM FOUN[employer]Y WORKER GENERAL Other indication->CTOR Are special requirements needed? (all products are leukoreduced)->No Date required:-20231017 PLT # of Units:-1-Units Reasons:-Other (Specify)} Ayden Alan MD BLOOD BANK PRODUCT ORDERABLES Final Result Performing Organization Address [facility] Co de Phone Number [facility]3] [address] [facility] [employer] [place] [address] * POC Activated Clotting Time, High Range (10/17/2023 8:19 AM FOUNDRY WORKER GENERAL) [facility] ACT 97 87 - 138 sec [facility]3] Blood 10/17/2023 8:19 AM FOUNDRY WORKER GENERAL 10/17/2023 8:19 AM FOUNDRY WORKER GENERAL us Jaqueline Valero MD LAB BLOOD ORDERABLES Final Result Performing Organization Address [facility] Co de Phone Number [facility]3] [address] [facility] [place] [address] * (ABNORMAL) POCT glucose (10/17/2023 7:47 AM FOUNDRY WORKER GENERAL) [facility] Glucose, POC 279(H) 70 - 140 mg/dL [facility]3] Comment: For Glucose values <35 mg/dl when Hematocrit is >60 mg/dl,the test may not accurately detect significant hypoglycemia,and testing in the Laboratory should be considered if clinically indicated. Blood 10/17/2023 7:47 AM FOUNDRY WORKER GENERAL 10/17/2023 7:47 AM FOUNDRY WORKER GENERAL us Jovani Kat DO LAB POCT ORDERABLES - DE VICE Final Result Performing Organization Address [facility] Co de Phone Number [facility]3] [address] Department [employer] [place] [address] * (ABNORMAL) POCT glucose (10/17/2023 5:50 AM FOUNDRY WORKER GENERAL) [facility] Glucose, POC 307(H) 70 - 140 mg/dL [facility]3] Comment: For Glucose values <35 mg/dl when Hematocrit is >60 mg/dl,the test may not accurately detect significant hypoglycemia,and testing in the Laboratory should be considered if clinically indicated. Blood 10/17/2023 5:50 AM FOUNDRY WORKER GENERAL 10/17/2023 5:50 AM FOUNDRY WORKER GENERAL us Frank Cody MD LAB POCT ORDERABLES - DEVICE Fin al Result [facility] [address] Department [place] [address] * US Carotids (10/17/2023 5:10 AM FOUNDRY WORKER GENERAL) Anatomical Region Laterality Modality Vascular Bilateral Ultrasound 10/17/2023 1:01 PM FOUNDRY WORKER GENERAL Impressions 10/17/2023 1:01 PM FOUNDRY WORKER GENERAL 1) ??Plaquing of the right internal carotid [...] Ana Pastor MD Narrative 10/17/2023 1:01 PM FOUNDRY WORKER GENERAL DATE:10/17/2023 4:30 AM EXAM: Duplex imaging of [...] * (ABNORMAL) POCT glucose (10/17/2023 2:29 AM FOUNDRY WORKER GENERAL) Glucose, POC 288(H) 70 - 140 mg/dL [facility]3] Comment: For Glucose values <35 mg/dl when Hematocrit is >60 mg/dl,the test may not accurately detect significant hypoglycemia,and testing in the Laboratory should be considered if clinically indicated. Blood 10/17/2023 2:29 AM FOUNDRY WORKER GENERAL 10/17/2023 2:29 AM FOUNDRY WORKER GENERAL Frank Cody MD LAB POCT ORDERABLES - DEVICE Fin al Result Performing Organization Address [facility] Co de Phone Number [facility]3] [address] Department [employer] [place], [place] [id number] * (ABNORMAL) POCT glucose (10/17/2023 12:51 AM FOUNDRY WORKER GENERAL) Glucose, POC 242(H) 70 - 140 mg/dL [facility]3] Comment: For Glucose values <35 mg/dl when Hematocrit is >60 mg/dl,the test may not accurately detect significant hypoglycemia,and testing in the Laboratory should be considered if clinically indicated. Blood 10/17/2023 12:5 1 AM FOUNDRY WORKER GENERAL 10/17/2023 12:51 AM FOUNDRY WORKER GENERAL Frank Cody MD LAB POCT ORDERABLES - DEVICE Fin al Result Performing Organization Address City/[facility]/ZIP Co de Phone Number [facility]3] [address] Department of [employer] [place], [place] [id number] * (ABNORMAL) Differential, auto (10/17/2023 12:29 AM FOUNDRY WORKER GENERAL) Neutrophil abs 6.4 1.5 - 6.5 K/cumm [facility]3] Imm gran abs 0.2(H) 0.0 - 0.1 K/cumm [facility]3] Lymphocyte abs 1.6 0.8 - 3.3 K/cumm [facility]3] Monocyte abs 1.1(H) 0.2 - 0.8 K/cumm [facility]3] Eosinophil abs 0.3 0.0 - 0.5 K/cumm [facility]3] Basophil abs 0.0 0.0 - 0.1 K/cumm [facility]3] Neutrophil pct 66.0 % [facility]3] Comment: Interpretive Data Percent cell count reference ranges are not reported, since discordance with absolute values may lead to misinterpretation of CBC data. Current Interpretive Data was last revised on 2017. Imm gran pct 2.1 % [facility]3] Comment: Interpretive Data Percent cell count reference ranges are not reported, since discordance with absolute values may lead to misinterpretation of CBC data. Current Interpretive Data was last revised on 2017. Lymphocyte pct 16.8 % [facility]3] Comment: Interpretive Data Percent cell count reference ranges are not reported, since discordance with absolute values may lead to misinterpretation of CBC data. Current Interpretive Data was last revised on 2017. Monocyte pct 11.6 % [facility]3] Comment: Interpretive Data Percent cell count reference ranges are not reported, since discordance with absolute values may lead to misinterpretation of CBC data. Current Interpretive Data was last revised on 2017. Eosinophil pct 3.1 % [facility]3] Comment: Interpretive Data Percent cell count reference ranges are not reported, since discordance with absolute values may lead to misinterpretation of CBC data. Current Interpretive Data was last revised on 2017. Basophil pct 0.4 % [facility]3] Comment: Interpretive Data Percent cell count reference ranges are not reported, since discordance with absolute values may lead to misinterpretation of CBC data. Current Interpretive Data was last revised on 2017. Blood 10/17/2023 12:2 9 AM FOUNDRY WORKER GENERAL 10/17/2023 12:42 AM FOUNDRY WORKER GENERAL us Vinay Pratt DO LAB BLOOD ORDERABLES F inal Result [facility]3] [address] [place] [address] * (ABNORMAL) aPTT (10/17/2023 12:29 AM FOUNDRY WORKER GENERAL) [facility] aPTT 92(H) 28 - 38 sec [facility]3] Comment: Interpretive Data Heparin therapeutic range: 66.0 - 100.0 seconds. Range based on correlation with therapeutic heparin activity range of 0.3 - 0.7 Units/mL. Current interpretive data was last revised on 2023. Blood 10/17/2023 12:2 9 AM FOUNDRY WORKER GENERAL 10/17/2023 12:43 AM FOUNDRY WORKER GENERAL Frank Cody MD LAB BLOOD ORDERABLES Final Resul t [facility])[3] [address] [place] [address] * (ABNORMAL) CBC with auto differential (10/17/2023 12:29 AM FOUNDRY WORKER GENERAL) [facility] WBC 9.7 3.8 - 9.9 K/cumm [facility]3] Hgb 9.0(L) 13.0 - 17.5 g/dL [facility]3] Hct 27.4(L) 38.9 - 50.3 % [facility]3] Plt 289 150 - 400 K/cumm [facility]3] MPV 10.7 9.1 - 12.3 fL [facility]3] RBC 3.04(L) 4.30 - 5.80 M/cumm [facility]3] MCV 90.1 81.3 - 96.4 fL [facility]3] MCH 29.6 27.1 - 33.3 pg [facility]3] MCHC 32.8 32.3 - 35.7 g/dL [facility]3] RDW CV 14.7 11.1 - 14.9 % [facility]3] RDW SD 46.4 35.7 - 48.1 fL [facility]3] NRBC abs 0.03(H) 0.00 - 0.01 K/cumm [facility]3] Blood 10/17/2023 12:2 9 AM FOUNDRY WORKER GENERAL 10/17/2023 12:42 AM FOUNDRY WORKER GENERAL Vinay Pratt DO LAB BLOOD ORDERABLES F inal Result Performing Organization Address [facility] Co de Phone Number [facility]3] [address] Department of Laboratories [place], [place] [phone] * Type and screen (10/16/2023 7:51 PM FOUNDRY WORKER GENERAL) Maribel, indirect Negative ABO Rh A Positive [facility]3] Blood 10/16/2023 7:51 PM FOUNDRY WORKER GENERAL 10/16/2023 8:09 PM FOUNDRY WORKER GENERAL Result [facility] Frank Cody MD LAB BLOOD BANK TEST ORDERABLES F inal Result Performing Organization Address [facility] de Phone Number [facility]3] [address] Department [place] [address] * POCT glucose (10/16/2023 7:49 PM FOUNDRY WORKER GENERAL) Glucose, POC 114 70 - 140 mg/dL [facility]3] Comment: For Glucose values <35 mg/dl when Hematocrit is >60 mg/dl,the test may not accurately detect significant hypoglycemia,and testing in the Laboratory should be considered if clinically indicated. Blood 10/16/2023 7:49 PM FOUNDRY WORKER GENERAL 10/16/2023 7:49 PM FOUNDRY WORKER GENERAL Frank Cody MD LAB POCT ORDERABLES - DEVICE Fin al Result Performing Organization Address [facility] de Phone Number [facility]3] [address] Department [place] [address] * POCT glucose (10/16/2023 5:35 PM FOUNDRY WORKER GENERAL) Glucose, POC 76 70 - 140 mg/dL [facility]3] Comment: For Glucose values <35 mg/dl when Hematocrit is >60 mg/dl,the test may not accurately detect significant hypoglycemia,and testing in the Laboratory should be considered if clinically indicated. Blood 10/16/2023 5:3 5 PM FOUNDRY WORKER GENERAL 10/16/2023 5:35 PM FOUNDRY WORKER GENERAL us Frank Cody MD LAB POCT ORDERABLES - DEVICE Fin al Result [facility] [address] [place] [address] * TRANSTHORACIC ECHO (TTE) COMPLETE W DOPPLER/CF W CONTRAST (10/16/2023 4:47 PM FOUNDRY WORKER GENERAL) Anatomical Region Laterality Modality Ultrasound 10/16/2023 11:3 9 AM FOUNDRY WORKER GENERAL Narrative 10/16/2023 5:02 PM FOUNDRY WORKER GENERAL [facility] [address] [place] [address] ECHOCARDIOGRAM Patient Name: JUVENAL GARVIN C : 1970 Study Date: 10/16/2023 11:39:54 AM Gender: M Tech: Location: [id number] Ref Provider: GUERLINE RODRIGUEZ ?Height(Cm): 178 BSA: 2.5 Weight(Kg): 126.1 BP: 125/75 ?Order Provider: GUERLINE RODRIGUEZ - PROCEDURES: Echocardiographic Report: Transthoracic Echocardiogram with 2D, M-Mode, Spectral and Color Flow Doppler examination and administration of intravenous contrast. INDICATIONS: Coronary artery disease, [place] vessel. Measurements: 2D/M Mode ? Doppler Measurement [...] regurgitation. Electronically Signed By: Dimitrios Ames MD, [facility] 2023-10-16 17:01:58 FOUN[employer]Y WORKER GENERAL Procedure Note Dimitrios Ames MD - 10/16/2023 [facility] [address] [place] [address] ECHOCARDIOGRAM Patient Name: JUVENAL GARVIN C : 1970 Study Date: 10/16/2023 11:39:54 AM Gender: M Tech: Location: [id number] Ref Provider: GUERLINE RODRIGUEZ Height(Cm): 178 BSA: 2.5 Weight(Kg): 126.1 BP: 125/75 Order Provider: GUERLINE RODRIGUEZ - PROCEDURES: Echocardiographic Report: Transthoracic Echocardiogram with 2D, M-Mode, Spectral and Color FlowDoppler examination and administration of intravenous contrast. INDICATIONS: Coronary artery disease, [place] vessel. Measurements: 2D/M ModeDoppler Measurement Value Normal [...] tricuspidregurgitation. Electronically Signed By: Dimitrios Ames MD, [facility] 2023-10-16 17:01:58 FOUN[employer]Y WORKER GENERAL us Guerline GRACE CV ECHO PROCEDURES Final Res ult * (ABNORMAL) aPTT (10/16/2023 3:50 PM FOUNDRY WORKER GENERAL) aPTT 73(H) 28 - 38 sec [facility]3] Comment: Interpretive Data Heparin therapeutic range: 66.0 - 100.0 seconds. Range based on correlation with therapeutic heparin activity range of 0.3 - 0.7 Units/mL. Current interpretive data was last revised on 2023. Blood 10/16/2023 3:50 PM FOUNDRY WORKER GENERAL 10/16/2023 3:50 PM FOUNDRY WORKER GENERAL us Frank Cody MD LAB BLOOD ORDERABLES Final Resul t [facility]3] [address] Department of Laboratories [place], [place] [id number] * (ABNORMAL) Lipid panel (10/16/2023 3:44 PM FOUNDRY WORKER GENERAL) Cholesterol 89 30 - 199 mg/dL [facility]3] Comment: Interpretive Data Ages < or = [...] revised on 2018. Triglycerides 106 <=149 mg/dL [facility]3] Comment: Interpretive Data Ages < or = [...] revised on 2018. HDL 34(L) >=40 mg/dL [facility]3] Comment: Interpretive Data Ages < or = [...] on 2018. LDL, calculated 34 <=129 mg/dL [facility]3] Comment: Interpretive Data Ages < or = [...] revised on 2018. Non-HDL Cholesterol 55 mg/dL [facility]3] Comment: Interpretive Data Ages < or = [...] last revised on 2018. Chol/HDL ratio 3 [facility]3] Blood 10/16/2023 3:44 PM F[employer]DRY WORKER GENERAL 10/16/2023 3:53 PM FOUNDRY WORKER GENERAL us Jaqueline Valero MD LAB BLOOD ORDERABLES Final Result [facility]3] [address] [place] [address] * (ABNORMAL) Hemoglobin A1c (10/16/2023 3:27 PM FOUNDRY WORKER GENERAL) Hgb A1C 8.1(H) 4.0 - 5.6 % [facility]3] Estimated Average Glucose 186 mg/dL [facility]3] Comment: The ADA recommends reporting an estimated Average Glucose (eAG) with all Hemoglobin A1c results using the equation derived from a study of 507 normal and diabetic adults. ??Minority populations were underrepresented and children were not included. ?? (Diabetes Care 31:4173-6828, 2008). ??The eAG is not equivalent to a fasting glucose. Blood 10/16/2023 3:27 PM FOUNDRY WORKER GENERAL 10/16/2023 3:27 PM FOUNDRY WORKER GENERAL Jaqueline Valero MD LAB BLOOD ORDERABLES Final Result [facility] [address] [place] [address] * XR Chest PA Lateral 2 View (10/16/2023 3:12 PM FOUNDRY WORKER GENERAL) Anatomical Region Laterality Modality Body, Chest N/A Computed Radiogr aphy 10/16/2023 3:15 PM F[employer]Y WORKER GENERAL Impressions 10/16/2023 3:15 PM FOUNDRY WORKER GENERAL Small bilateral pleural effusions with mild bibasilar atelectasis. Small volume fluid tracks into the right minor fissure. ??Mild pulmonary edema. ??No pneumothorax. ??Heart size and mediastinal contours are unchanged. Electronically signed by: Salina Garnica M.D. Narrative 10/16/2023 3:15 PM FOUNDRY WORKER GENERAL EXAMINATION: XR CHEST PA LATERAL 2 VIEWS [...] * ECG 12 lead (10/16/2023 2:17 PM FOUNDRY WORKER GENERAL) 10/16/2023 2:17 PM F[employer]DRY WORKER GENERAL Narrative [facility] - 10/16/2023 9:14 PM FOUNDRY WORKER GENERAL Vent Rate: 61 bpm RR Interval: 981 msec ME Interval: 235 msec QRS Duration: 150 msec QT Interval: 447 msec QTC Interval: 449 msec P-R-T [place]: 70 - -11 - 134 degrees IMPRESSION: SINUS RHYTHM WITH FIRST DEGREE AV BLOCK LEFT BUNDLE BRANCH BLOCK ABNORMAL ECG Electronically Signed By: Payam White MD Jaqueline Valero MD ECG ORDERABLES Final Resu lt Performing Organization Address [facility] Co de Phone Number [facility] * Prepare RBC: 3 Units (10/16/2023 2:04 PM FOUNDRY WORKER GENERAL) [facility] Product code [id number] [facility]3] Unit Number [id number] W [facility]3] Product Blood Type APOS [facility]3] Dispense Status PRESUMED TRANSFUSED [facility]3] Product code [id number] Unit Number [id number] * [facility]3] [facility] Dispense Status PRESUMED TRANSFUSED [facility]3] Product code [id number] [facility]3] Unit Number [id number] M [facility]3] Product [facility] Dispense Status RETURNED [facility]3] Blood 10/16/2023 2:04 PM FOUNDRY WORKER GENERAL Narrative [facility]3] - 10/19/2023 7:08 AM FOUNDRY WORKER GENERAL Specify Procedure:->cabg/aortic valve replacement Are special requirements needed? (All products are leukoreduced and CMV- safe)- >No Date required:-20231017 LRRBC # of [id number] Reasons:-Hold for procedure (specify procedure)} Jaqueline Valero MD BLOOD BANK PRODUCT ORDERAB LES Final Result Performing Organization Address [facility] Co de Phone Number [facility]3] [address] Department [place] [address] * POCT glucose (10/16/2023 12:22 PM FOUNDRY WORKER GENERAL) [facility] Glucose, POC 74 70 - 140 mg/dL [facility]3] Comment: For Glucose values <35 mg/dl when Hematocrit is >60 mg/dl,the test may not accurately detect significant hypoglycemia,and testing in the Laboratory should be considered if clinically indicated. Blood 10/16/2023 12:2 2 PM FOUNDRY WORKER GENERAL 10/16/2023 12:22 PM FOUNDRY WORKER GENERAL us Frank Cody MD LAB POCT ORDERABLES - DEVICE Fin al Result Performing Organization Address [facility] de Phone Number [facility]3] [address] [facility] [place] [address] * (ABNORMAL) POCT glucose (10/16/2023 8:11 AM FOUNDRY WORKER GENERAL) Glucose, POC 266(H) 70 - 140 mg/dL [facility]3] Comment: For Glucose values <35 mg/dl when Hematocrit is >60 mg/dl,the test may not accurately detect significant hypoglycemia,and testing in the Laboratory should be considered if clinically indicated. Blood 10/16/2023 8:11 AM FOUNDRY WORKER GENERAL 10/16/2023 8:11 AM FOUNDRY WORKER GENERAL us Frank Cody MD LAB POCT ORDERABLES - DEVICE Fin al Result Performing Organization Address [facility] de Phone Number [facility] ([facility]3] [address] [facility] [place] [address] * (ABNORMAL) POCT glucose (10/16/2023 4:48 AM [employer] WORKER [employer]) Glucose, POC 329(H) 70 - 140 mg/dL [facility] ([facility])[3] Comment: For Glucose values <35 mg/dl when Hematocrit is >60 mg/dl,the test may not accurately detect significant hypoglycemia,and testing in the Laboratory should be considered if clinically indicated. Blood 10/16/2023 4:48 AM [employer] WORKER GENERAL 10/16/2023 4:48 AM [employer] WORKER GENERAL us Frank Cody MD LAB POCT ORDERABLES - DEVICE Fin al Result Performing Organization Address [facility] de Phone Number [facility] ([facility])[3] [address] [facility] [place] [address] * (ABNORMAL) POCT glucose (10/16/2023 12:37 AM [employer] WORKER GENERAL) Glucose, POC 158(H) 70 - 140 mg/dL [facility] ([facility])[3] Comment: For Glucose values <35 mg/dl when Hematocrit is >60 mg/dl,the test may not accurately detect significant hypoglycemia,and testing in the Laboratory should be considered if clinically indicated. Blood 10/16/2023 12:3 7 AM [employer] WORKER GENERAL 10/16/2023 12:37 AM [employer] WORKER GENERAL us Frank Cody MD LAB POCT ORDERABLES - DEVICE Fin al Result [facility] ([facility])[3] [address] [place] [address] * (ABNORMAL) Differential, auto (10/16/2023 12:31 AM [employer]OUN[employer] WORKER GENERAL) [facility] Neutrophil abs 4.5 1.5 - 6.5 K/cumm [facility] ([facility])[3] Imm gran abs 0.2(H) 0.0 - 0.1 K/cumm [facility] ([facility])[3] Lymphocyte abs 1.8 0.8 - 3.3 K/cumm [facility] ([facility])[3] Monocyte abs 1.0(H) 0.2 - 0.8 K/cumm [facility])[3] Eosinophil abs 0.2 0.0 - 0.5 K/cumm [facility] ([facility])[3] Basophil abs 0.0 0.0 - 0.1 K/cumm [facility] ([facility])[3] Neutrophil pct 58.6 % [facility])[3] Comment: Interpretive Data Percent cell count reference ranges are not reported, since discordance with absolute values may lead to misinterpretation of CBC data. Current Interpretive Data was last revised on 2017. Imm gran pct 2.1 % [facility])[3] Comment: Interpretive Data Percent cell count reference ranges are not reported, since discordance with absolute values may lead to misinterpretation of CBC data. Current Interpretive Data was last revised on 2017. Lymphocyte pct 23.1 % [facility])[3] Comment: Interpretive Data Percent cell count reference ranges are not reported, since discordance with absolute values may lead to misinterpretation of CBC data. Current Interpretive Data was last revised on 2017. Monocyte pct 13.2 % [facility])[3] Comment: Interpretive Data Percent cell count reference ranges are not reported, since discordance with absolute values may lead to misinterpretation of CBC data. Current Interpretive Data was last revised on 2017. Eosinophil pct 2.5 % [facility])[3] Comment: Interpretive Data Percent cell count reference ranges are not reported, since discordance with absolute values may lead to misinterpretation of CBC data. Current Interpretive Data was last revised on 2017. Basophil pct 0.5 % [facility])[3] Comment: Interpretive Data Percent cell count reference ranges are not reported, since discordance with absolute values may lead to misinterpretation of CBC data. Current Interpretive Data was last revised on 2017. Blood 10/16/2023 12:3 1 AM [employer] WORKER [employer] 10/16/2023 12:36 AM [employer] WORKER GENERAL Vinay Pratt DO LAB BLOOD ORDERABLES F inal Result Performing Organization Address [facility] Co de Phone Number [facility] ([facility])[3] [address] [facility] [place] [address] * (ABNORMAL) aPTT (10/16/2023 12:31 AM FOUN[employer] WORKER GENERAL) aPTT 80(H) 28 - 38 sec [facility])[3] Comment: Interpretive Data Heparin therapeutic range: 66.0 - 100.0 seconds. Range based on correlation with therapeutic heparin activity range of 0.3 - 0.7 Units/mL. Current interpretive data was last revised on 2023. Blood 10/16/2023 12:3 1 AM [employer] WORKER GENERAL 10/16/2023 12:36 AM [employer]OUN[employer] WORKER GENERAL Frank Cody MD LAB BLOOD ORDERABLES Final Resul t Performing Organization Address [facility]/ZIP Co de Phone Number [facility] ([facility])[3] [address] [facility] [place] [address] * (ABNORMAL) CBC with auto differential (10/16/2023 12:31 AM FOUN[employer]Y WORKER GENERAL) WBC 7.7 3.8 - 9.9 K/cumm [facility])[3] Hgb 9.4(L) 13.0 - 17.5 g/dL [facility])[3] Hct 29.7(L) 38.9 - 50.3 % [facility])[3] Plt 330 150 - 400 K/cumm [facility] ([facility])[3] MPV 10.9 9.1 - 12.3 fL [facility])[3] RBC 3.24(L) 4.30 - 5.80 M/cumm [facility])[3] MCV 91.7 81.3 - 96.4 fL [facility])[3] MCH 29.0 27.1 - 33.3 pg [facility])[3] MCHC 31.6(L) 32.3 - 35.7 g/dL [facility])[3] RDW CV 14.6 11.1 - 14.9 % [facility])[3] RDW SD 47.2 35.7 - 48.1 fL [facility])[3] NRBC abs 0.03(H) 0.00 - 0.01 K/cumm [facility])[3] Blood 10/16/2023 12:3 1 AM [employer] WORKER GENERAL 10/16/2023 12:36 AM [employer]Y WORKER GENERAL Vinay Pratt DO LAB BLOOD ORDERABLES F inal Result [facility] ([facility])[3] [address] Department [place] [address] * Check Sample (10/16/2023 12:27 AM FOUNDRY WORKER GENERAL) Pathologist [facility] ABO Rh A Positive HCLL OTHER 10/16/2023 12:2 7 AM [employer]Y WORKER GENERAL 10/16/2023 2:18 PM [employer] WORKER GENERAL Frank Cody MD LAB BLOOD ORDERABLES Final Resul t [facility] ([facility])[3] [address] Department [place] [address] * POCT glucose (10/15/2023 11:20 PM FOUNDRY WORKER GENERAL) Glucose, POC 105 70 - 140 mg/dL [facility])[3] Comment: For Glucose values <35 mg/dl when Hematocrit is >60 mg/dl,the test may not accurately detect significant hypoglycemia,and testing in the Laboratory should be considered if clinically indicated. Blood 10/15/2023 11:2 0 PM [employer] WORKER GENERAL 10/15/2023 11:20 PM [employer]Y WORKER GENERAL us Frank Cody MD LAB POCT ORDERABLES - DEVICE Fin al Result Performing Organization Address [facility] de Phone Number [facility])[3] [address] [facility] [place] [address] * POCT glucose (10/15/2023 11:01 PM FOUN[employer]Y WORKER GENERAL) Glucose, POC 93 70 - 140 mg/dL [facility])[3] Comment: For Glucose values <35 mg/dl when Hematocrit is >60 mg/dl,the test may not accurately detect significant hypoglycemia,and testing in the Laboratory should be considered if clinically indicated. Glucose comment 1 Follow Protocol [facility]3] Blood 10/15/2023 11:0 1 PM [employer]Y WORKER GENERAL 10/15/2023 11:01 PM FOUN[employer]Y WORKER GENERAL Result Formerly [facility], [facility]1983 us Frank Cody MD LAB POCT ORDERABLES - DEVICE Fin al Result Performing Organization Address [facility] de Phone Number [facility])[3] [address] [facility] [employer] [place], [place] [id number] * POCT glucose (10/15/2023 10:45 PM FOUNDRY WORKER GENERAL) Glucose, POC 84 70 - 140 mg/dL [facility])[3] Comment: For Glucose values <35 mg/dl when Hematocrit is >60 mg/dl,the test may not accurately detect significant hypoglycemia,and testing in the Laboratory should be considered if clinically indicated. Glucose comment 1 Follow Protocol [facility]3] Blood 10/15/2023 10:4 5 PM [employer] WORKER GENERAL 10/15/2023 10:45 PM FOUNDRY WORKER GENERAL us Frank Cody MD LAB POCT ORDERABLES - DEVICE Fin al Result Performing Organization Address [facility] de Phone Number [facility])[3] [address] [facility] [place] [address] * (ABNORMAL) POCT glucose (10/15/2023 10:26 PM FOUNDRY WORKER GENERAL) Glucose, POC 69(L) 70 - 140 mg/dL [facility])[3] Comment: For Glucose values <35 mg/dl when Hematocrit is >60 mg/dl,the test may not accurately detect significant hypoglycemia,and testing in the Laboratory should be considered if clinically indicated. Blood 10/15/2023 10:2 6 PM [employer] WORKER GENERAL 10/15/2023 10:26 PM [employer] WORKER GENERAL Frank Cody MD LAB POCT ORDERABLES - DEVICE Fin al Result Performing Organization Address [facility] Co de Phone Number [facility])[3] [address] [facility] [place] [address] * POCT glucose (10/15/2023 8:12 PM FOUN[employer]Y WORKER GENERAL) Glucose, POC 73 70 - 140 mg/dL [facility])[3] Comment: For Glucose values <35 mg/dl when Hematocrit is >60 mg/dl,the test may not accurately detect significant hypoglycemia,and testing in the Laboratory should be considered if clinically indicated. Blood 10/15/2023 8:12 PM [employer]Y WORKER GENERAL 10/15/2023 8:12 PM [employer]Y WORKER GENERAL Frank Cody MD LAB POCT ORDERABLES - DEVICE Fin al Result Performing Organization Address [facility] Co de Phone Number [facility])[3] [address] Department [place] [address] * POCT glucose (10/15/2023 5:10 PM FOUNDRY WORKER GENERAL) Glucose, POC 72 70 - 140 mg/dL [facility])[3] Comment: For Glucose values <35 mg/dl when Hematocrit is >60 mg/dl,the test may not accurately detect significant hypoglycemia,and testing in the Laboratory should be considered if clinically indicated. Blood 10/15/2023 5:10 PM FOUN[employer]Y WORKER GENERAL 10/15/2023 5:10 PM F[employer] WORKER GENERAL us Frank Cody MD LAB POCT ORDERABLES - DEVICE Fin al Result Performing Organization Address [facility] de Phone Number [facility])[3] [address] [facility] [employer] [place], [place] [id number] * (ABNORMAL) POCT glucose (10/15/2023 12:13 PM FOUNDRY WORKER GENERAL) Glucose, POC 155(H) 70 - 140 mg/dL [facility])[3] Comment: For Glucose values <35 mg/dl when Hematocrit is >60 mg/dl,the test may not accurately detect significant hypoglycemia,and testing in the Laboratory should be considered if clinically indicated. Blood 10/15/2023 12:1 3 PM [employer] WORKER GENERAL 10/15/2023 12:13 PM FOUN[employer]Y WORKER GENERAL us Frank Cody MD LAB POCT ORDERABLES - DEVICE Fin al Result Performing Organization Address [facility] de Phone Number [facility])[3] [address] [facility] [employer] [place], [place] [id number] * (ABNORMAL) aPTT (10/15/2023 11:25 AM FOUNDRY WORKER GENERAL) aPTT 59(H) 28 - 38 sec [facility])[3] Comment: Interpretive Data Heparin therapeutic range: 66.0 - 100.0 seconds. Range based on correlation with therapeutic heparin activity range of 0.3 - 0.7 Units/mL. Current interpretive data was last revised on 2023. Blood 10/15/2023 11:2 5 AM F[employer]Y WORKER GENERAL 10/15/2023 11:31 AM FOUN[employer]Y WORKER GENERAL us Frank Cody MD LAB BLOOD ORDERABLES Final Resul t Performing Organization Address [facility] Co de Phone Number [facility])[3] [address] [facility] [employer] [place], [place] [id number] * CT Chest WO Contrast (10/15/2023 11:00 AM FOUNDRY WORKER GENERAL) Anatomical Region Laterality Modality Body N/A Computed Tomogra phy 10/15/2023 11:5 8 AM FOUN[employer]Y WORKER GENERAL Impressions 10/15/2023 11:58 AM FOUNDRY WORKER GENERAL 1. ??Small bilateral pleural effusions with mild bibasilar atelectasis. 2. ??Mildly enlarged likely reactive mediastinal lymph nodes. Attention on follow-up is recommended. Electronically signed by: Arjun Amador M.D. Narrative 10/15/2023 11:58 AM FOUNDRY WORKER GENERAL EXAMINATION: ??Computed tomography of the chest without [...] * (ABNORMAL) POCT glucose (10/15/2023 7:56 AM FOUNDRY WORKER GENERAL) Glucose, POC 249(H) 70 - 140 mg/dL [facility]3] Comment: For Glucose values <35 mg/dl when Hematocrit is >60 mg/dl,the test may not accurately detect significant hypoglycemia,and testing in the Laboratory should be considered if clinically indicated. Blood 10/15/2023 7:56 AM F[employer]Y WORKER GENERAL 10/15/2023 7:56 AM FOUNDRY WORKER GENERAL Frank Cody MD LAB POCT ORDERABLES - DEVICE Fin al Result Performing Organization Address City/[facility]/ZIP Co de Phone Number [facility])[3] [address] [place] [address] * (ABNORMAL) POCT glucose (10/15/2023 5:34 AM FOUN[employer]Y WORKER GENERAL) Glucose, POC 338(H) 70 - 140 mg/dL [facility])[3] Comment: For Glucose values <35 mg/dl when Hematocrit is >60 mg/dl,the test may not accurately detect significant hypoglycemia,and testing in the Laboratory should be considered if clinically indicated. Glucose comment 1 RN/MD Notified [facility]3] Blood 10/15/2023 5:34 AM F[employer] WORKER GENERAL 10/15/2023 5:34 AM FOUNDRY WORKER GENERAL Frank Cody MD LAB POCT ORDERABLES - DEVICE Fin al Result [facility]3] [address] [place] [address] * (ABNORMAL) POCT glucose (10/15/2023 4:35 AM FOUNDRY WORKER GENERAL) Glucose, POC 344(H) 70 - 140 mg/dL [facility]3] Comment: For Glucose values <35 mg/dl when Hematocrit is >60 mg/dl,the test may not accurately detect significant hypoglycemia,and testing in the Laboratory should be considered if clinically indicated. Glucose comment 1 RN/MD Notified [facility]3] Blood 10/15/2023 4:35 AM F[employer]Y WORKER GENERAL 10/15/2023 4:35 AM FOUNDRY WORKER GENERAL us Frank Cody MD LAB POCT ORDERABLES - DEVICE Fin al Result Performing Organization Address [facility]/ZIP Co de Phone Number [facility])[3] [address] [place] [address] * (ABNORMAL) aPTT (10/15/2023 4:27 AM FOUN[employer]Y WORKER GENERAL) aPTT 75(H) 28 - 38 sec [facility]3] Comment: Interpretive Data Heparin therapeutic range: 66.0 - 100.0 seconds. Range based on correlation with therapeutic heparin activity range of 0.3 - 0.7 Units/mL. Current interpretive data was last revised on 2023. Blood 10/15/2023 4:27 AM F[employer]Y WORKER GENERAL 10/15/2023 4:38 AM FOUNDRY WORKER GENERAL Narrative [facility]3] - 10/15/2023 4:55 AM [employer]Y WORKER GENERAL Draw STAT PTT 6 hrs after initiation of heparin infusion, draw STAT PTT 6 hours after each dose change, and every 6 hours until 2 consecutive PTTs are within therapeutic range. Once two consecutive PTT's are therapeutic (66-100 seconds), then draw PTT every AM until heparin is discontinued. us Vinay Pratt DO LAB BLOOD ORDERABLES F inal Result Performing Organization Address [facility]/ZIP Co de Phone Number [facility])[3] [address] Department [place] [address] * (ABNORMAL) POCT glucose (10/15/2023 1:30 AM FOUNDRY WORKER GENERAL) Glucose, POC 334(H) 70 - 140 mg/dL [facility]3] Comment: For Glucose values <35 mg/dl when Hematocrit is >60 mg/dl,the test may not accurately detect significant hypoglycemia,and testing in the Laboratory should be considered if clinically indicated. Blood 10/15/2023 1:30 AM F[employer] WORKER GENERAL 10/15/2023 1:30 AM FOUN[employer]Y WORKER GENERAL us Frank Cody MD LAB POCT ORDERABLES - DEVICE Fin al Result [facility]3] [address] [place] [address] * (ABNORMAL) Renal function panel (10/15/2023 1:06 AM FOUNDRY WORKER GENERAL) [facility] Sodium 130(L) 135 - 145 mmol/L [facility]3] Potassium, pl 4.3 3.3 - 4.9 mmol/L [facility]3] Chloride 89(L) 97 - 110 mmol/L [facility]3] CO2 22 22 - 32 mmol/L [facility]3] Anion gap 19(H) 2 - 15 mmol/L [facility]3] BUN 78(H) 6 - 25 mg/dL [facility]3] Creatinine 10.57(H) 0.80 - 1.30 mg/dL [facility]3] Glucose 308(H) 70 - 199 mg/dL [facility]3] Comment: Interpretive Data Fasting glucose >/= 126 [...] 2022. Calcium 8.2(L) 8.5 - 10.3 mg/dL [facility]3] Phosphorus, pl 5.7(H) 2.3 - 4.5 mg/dL [facility]3] Albumin 3.3(L) 3.5 - 5.0 g/dL [facility]3] Blood 10/15/2023 1:06 AM [employer] WORKER GENERAL 10/15/2023 1:20 AM [employer] WORKER GENERAL Frank Cody MD LAB BLOOD ORDERABLES Final Resul t [facility])[3] [address] [place] [address] * eGFR (10/15/2023 1:06 AM FOUNDRY WORKER GENERAL) eGFR 5 mL/min/1. 73 m2 [facility]3] Comment: Interpretive Data Reference Interval Normal ?>/= [...] last reviewed 2021. Blood 10/15/2023 1:06 AM [employer]Y WORKER GENERAL 10/15/2023 1:20 AM F[employer]Y WORKER GENERAL us Frank Cody MD LAB BLOOD ORDERABLES Final Resul t Performing Organization Address [facility] Co de Phone Number [facility])[3] [address] [facility] [place] [address] * (ABNORMAL) aPTT (10/15/2023 1:06 AM F[employer]Y WORKER GENERAL) aPTT 69(H) 28 - 38 sec [facility]3] Comment: Interpretive Data Heparin therapeutic range: 66.0 - 100.0 seconds. Range based on correlation with therapeutic heparin activity range of 0.3 - 0.7 Units/mL. Current interpretive data was last revised on 2023. Blood 10/15/2023 1:06 AM [employer] WORKER GENERAL 10/15/2023 1:20 AM F[employer]Y WORKER GENERAL us Frank Cody MD LAB BLOOD ORDERABLES Final Resul t Performing Organization Address [facility] de Phone Number [facility])[3] [address] [facility] [place] [address] * (ABNORMAL) Differential, auto (10/15/2023 1:06 AM F[employer] WORKER GENERAL) Neutrophil abs 4.3 1.5 - 6.5 K/cumm [facility]3] Imm gran abs 0.1 0.0 - 0.1 K/cumm [facility]3] Lymphocyte abs 2.2 0.8 - 3.3 K/cumm [facility]3] Monocyte abs 0.9(H) 0.2 - 0.8 K/cumm [facility]3] Eosinophil abs 0.1 0.0 - 0.5 K/cumm [facility]3] Basophil abs 0.0 0.0 - 0.1 K/cumm [facility]3] Neutrophil pct 56.6 % [facility]3] Comment: Interpretive Data Percent cell count reference ranges are not reported, since discordance with absolute values may lead to misinterpretation of CBC data. Current Interpretive Data was last revised on 2017. Imm gran pct 1.2 % [facility]3] Comment: Interpretive Data Percent cell count reference ranges are not reported, since discordance with absolute values may lead to misinterpretation of CBC data. Current Interpretive Data was last revised on 2017. Lymphocyte pct 28.4 % [facility]3] Comment: Interpretive Data Percent cell count reference ranges are not reported, since discordance with absolute values may lead to misinterpretation of CBC data. Current Interpretive Data was last revised on 2017. Monocyte pct 12.0 % [facility]3] Comment: Interpretive Data Percent cell count reference ranges are not reported, since discordance with absolute values may lead to misinterpretation of CBC data. Current Interpretive Data was last revised on 2017. Eosinophil pct 1.5 % [facility]3] Comment: Interpretive Data Percent cell count reference ranges are not reported, since discordance with absolute values may lead to misinterpretation of CBC data. Current Interpretive Data was last revised on 2017. Basophil pct 0.3 % [facility]3] Comment: Interpretive Data Percent cell count reference ranges are not reported, since discordance with absolute values may lead to misinterpretation of CBC data. Current Interpretive Data was last revised on 2017. Blood 10/15/2023 1:06 AM [employer] 10/15/2023 1:20 AM [employer] Vinay Pratt DO LAB BLOOD ORDERABLES F inal Result [facility]3] [address] [place] [address] * (ABNORMAL) Iron profile w/ IBC (10/15/2023 1:06 AM [employer] WORKER [employer]) Iron 72 50 - 150 mcg/dL [facility]3] TIBC 205(L) 250 - 400 mcg/dL [facility]3] Transferrin saturation 35 20 - 50 % [facility]3] Blood 10/15/2023 1:06 AM [employer] 10/15/2023 1:20 AM [employer] WORK[employer] us Fernandez Carranza MD LAB BLOOD ORDERABLES Final Resu lt [facility]3] [address] Department [place] [address] * (ABNORMAL) Ferritin (10/15/2023 1:06 AM [employer] WORK[employer]) [facility] Ferritin 1,322(H) 30 - 400 ng/mL [facility]3] Blood 10/15/2023 1:06 AM [employer] WORK[employer] GENER[employer] 10/15/2023 1:20 AM [employer] WORKER GENERAL us Fernandez Carranza MD LAB BLOOD ORDERABLES Final Resu lt Performing Organization Address [facility]/ZIP Co de Phone Number [facility]3] [address] [place] [address] * (ABNORMAL) CBC with auto differential (10/15/2023 1:06 AM [employer] WORKER [employer]) [facility] WBC 7.6 3.8 - 9.9 K/cumm [facility]3] Hgb 9.4(L) 13.0 - 17.5 g/dL [facility]3] Hct 29.4(L) 38.9 - 50.3 % [facility]3] Plt 375 150 - 400 K/cumm [facility]3] MPV 11.0 9.1 - 12.3 fL [facility]3] RBC 3.23(L) 4.30 - 5.80 M/cumm [facility]3] MCV 91.0 81.3 - 96.4 fL [facility]3] MCH 29.1 27.1 - 33.3 pg [facility]3] MCHC 32.0(L) 32.3 - 35.7 g/dL [facility]3] RDW CV 14.0 11.1 - 14.9 % [facility]3] RDW SD 45.5 35.7 - 48.1 fL [facility]3] NRBC abs 0.02(H) 0.00 - 0.01 K/cumm [facility]3] Blood 10/15/2023 1:06 AM [employer] WORK[employer] 10/15/2023 1:20 AM [employer] WORKER GENERAL Vinay Pratt DO LAB BLOOD ORDERABLES F inal Result Performing Organization Address City/[facility]/ZIP Co de Phone Number [facility]3] [address] Department [place] [address] * (ABNORMAL) aPTT (10/14/2023 8:41 PM [employer] WORKER [employer]) aPTT 75(H) 28 - 38 sec [facility]3] Comment: Interpretive Data Heparin therapeutic range: 66.0 - 100.0 seconds. Range based on correlation with therapeutic heparin activity range of 0.3 - 0.7 Units/mL. Current interpretive data was last revised on 2023. Blood 10/14/2023 8:41 PM [employer] WORK[employer] 10/14/2023 8:52 PM [employer] WORKER [employer] us Frank Cody MD LAB BLOOD ORDERABLES Final Resul t Performing Organization Address [facility] Co de Phone Number [facility]3] [address] [place] [address] * (ABNORMAL) POCT glucose (10/14/2023 8:24 PM [employer] WORKER [employer]) Glucose, POC 232(H) 70 - 140 mg/dL [facility]3] Comment: For Glucose values <35 mg/dl when Hematocrit is >60 mg/dl,the test may not accurately detect significant hypoglycemia,and testing in the Laboratory should be considered if clinically indicated. Blood 10/14/2023 8:24 PM [employer] WORKER [employer] 10/14/2023 8:24 PM [employer] WORKER [employer] us Frank Cody MD LAB POCT ORDERABLES - DEVICE Fin al Result Performing Organization Address [facility] Co de Phone Number [facility]3] [address] [place] [address] * (ABNORMAL) POCT glucose (10/14/2023 5:28 PM [employer] WORKER [employer]) Glucose, POC 217(H) 70 - 140 mg/dL [facility]3] Comment: For Glucose values <35 mg/dl when Hematocrit is >60 mg/dl,the test may not accurately detect significant hypoglycemia,and testing in the Laboratory should be considered if clinically indicated. Blood 10/14/2023 5:28 PM [employer] WORKER GENER[employer] 10/14/2023 5:28 PM [employer] WORKER GENERAL Result [facility] Frank Cody MD LAB POCT ORDERABLES - DEVICE Fin al Result Performing Organization Address [facility] Co de Phone Number [facility]3] [address] [place] [address] * (ABNORMAL) aPTT (10/14/2023 2:39 PM [employer] WORKER GENER[employer]) aPTT 43(H) 28 - 38 sec [facility]3] Comment: Interpretive Data Heparin therapeutic range: 66.0 - 100.0 seconds. Range based on correlation with therapeutic heparin activity range of 0.3 - 0.7 Units/mL. Current interpretive data was last revised on 2023. Blood 10/14/2023 2:39 PM [employer] WORKER [employer] 10/14/2023 2:39 PM [employer] WORKER GENERAL Abelardo Randle MD LAB BLOOD ORDERABLES Final Result Performing Organization Address [facility] de Phone Number [facility]3] [address] [facility] [place] [address] * POCT glucose (10/14/2023 12:15 PM [employer] WORKER GENERAL) [facility] Glucose, POC 140 70 - 140 mg/dL [facility]3] Comment: For Glucose values <35 mg/dl when Hematocrit is >60 mg/dl,the test may not accurately detect significant hypoglycemia,and testing in the Laboratory should be considered if clinically indicated. Blood 10/14/2023 12:1 5 PM [employer] WORKER [employer] 10/14/2023 12:15 PM [employer] WORKER GENERAL Result [facility] Frank Cody MD LAB POCT ORDERABLES - DEVICE Fin al Result Performing Organization Address [facility] Co de Phone Number [facility]3] [address] Department [place] [address] * POCT glucose (10/14/2023 11:06 AM FOUN[employer] WORKER GENERAL) Glucose, POC 138 70 - 140 mg/dL [facility]3] Comment: For Glucose values <35 mg/dl when Hematocrit is >60 mg/dl,the test may not accurately detect significant hypoglycemia,and testing in the Laboratory should be considered if clinically indicated. Blood 10/14/2023 11:0 6 AM [employer] WORKER GENERAL 10/14/2023 11:06 AM [employer]OUN[employer] WORKER GENERAL us Frank Cody MD LAB POCT ORDERABLES - DEVICE Fin al Result Performing Organization Address [facility] de Phone Number [facility]3] [address] [place] [address] * POCT glucose (10/14/2023 8:34 AM FOUN[employer]Y WORKER GENERAL) Glucose, POC 134 70 - 140 mg/dL [facility]3] Comment: For Glucose values <35 mg/dl when Hematocrit is >60 mg/dl,the test may not accurately detect significant hypoglycemia,and testing in the Laboratory should be considered if clinically indicated. Blood 10/14/2023 8:34 AM [employer] WORKER GENERAL 10/14/2023 8:34 AM FOUN[employer]Y WORKER GENERAL us Frank Cody MD LAB POCT ORDERABLES - DEVICE Fin al Result Performing Organization Address [facility] de Phone Number [facility]3] [address] [place] [address] * (ABNORMAL) POCT glucose (10/14/2023 5:56 AM FOUNDR[employer] WORKER GENERAL) Glucose, POC 259(H) 70 - 140 mg/dL [facility]3] Comment: For Glucose values <35 mg/dl when Hematocrit is >60 mg/dl,the test may not accurately detect significant hypoglycemia,and testing in the Laboratory should be considered if clinically indicated. Blood 10/14/2023 5:56 AM FOUN[employer]Y WORKER GENERAL 10/14/2023 5:56 AM FOUNDRY WORKER GENERAL us Frank Cody MD LAB POCT ORDERABLES - DEVICE Fin al Result Performing Organization Address [facility]/State/ZIP Co de Phone Number [facility]3] [address] Department [place] [address] * eGFR (10/14/2023 5:53 AM FOUNDRY WORKER GENERAL) eGFR 5 mL/min/1. 73 m2 [facility]3] Comment: Interpretive Data Reference Interval Normal ?>/= [...] last reviewed 2021. Blood 10/14/2023 5:53 AM [employer] WORKER GENERAL 10/14/2023 6:04 AM FOUNDRY WORKER GENERAL us Vinay Pratt DO LAB BLOOD ORDERABLES F inal Result [facility] [address] Department of Laboratories [place], [place] [id number] * (ABNORMAL) aPTT (10/14/2023 5:53 AM FOUNDRY WORKER GENERAL) aPTT 56(H) 28 - 38 sec [facility]3] Comment: Interpretive Data Heparin therapeutic range: 66.0 - 100.0 seconds. Range based on correlation with therapeutic heparin activity range of 0.3 - 0.7 Units/mL. Current interpretive data was last revised on 2023. Blood 10/14/2023 5:53 AM [employer] WORKER GENERAL 10/14/2023 6:04 AM FOUN[employer] WORKER GENERAL Vinay Pratt DO LAB BLOOD ORDERABLES F inal Result [facility]3] [address] [place] [address] * (ABNORMAL) Basic metabolic panel (10/14/2023 5:53 AM FOUN[employer] WORKER GENERAL) Sodium 131(L) 135 - 145 mmol/L [facility]3] Potassium, pl 4.3 3.3 - 4.9 mmol/L [facility]3] Chloride 92(L) 97 - 110 mmol/L [facility]3] CO2 23 22 - 32 mmol/L [facility]3] Anion gap 16(H) 2 - 15 mmol/L [facility]3] BUN 75(H) 6 - 25 mg/dL [facility]3] Creatinine 10.22(H) 0.80 - 1.30 mg/dL [facility]3] Glucose 287(H) 70 - 199 mg/dL [facility]3] Comment: Interpretive Data Fasting glucose >/= 126 [...] 2022. Calcium 9.0 8.5 - 10.3 mg/dL [facility]3] Blood 10/14/2023 5:53 AM [employer] WORKER GENERAL 10/14/2023 6:04 AM FOUN[employer]Y WORKER GENERAL Vinay Pratt DO LAB BLOOD ORDERABLES F inal Result Performing Organization Address [facility] Co de Phone Number [facility]3] [address] [place], [place] [id number] * (ABNORMAL) POCT glucose (10/14/2023 3:58 AM FOUNDRY WORKER GENERAL) Glucose, POC 382(H) 70 - 140 mg/dL [facility]3] Comment: For Glucose values <35 mg/dl when Hematocrit is >60 mg/dl,the test may not accurately detect significant hypoglycemia,and testing in the Laboratory should be considered if clinically indicated. Blood 10/14/2023 3:58 AM F[employer]Y WORKER GENERAL 10/14/2023 3:58 AM [employer] WORKER GENERAL Frank Cody MD LAB POCT ORDERABLES - DEVICE Fin al Result Performing Organization Address [facility] de Phone Number [facility]3] [address] [facility] [employer] [place], [place] [id number] * (ABNORMAL) POCT glucose (10/14/2023 3:04 AM FOUNDRY WORKER GENERAL) Glucose, POC 378(H) 70 - 140 mg/dL [facility]3] Comment: For Glucose values <35 mg/dl when Hematocrit is >60 mg/dl,the test may not accurately detect significant hypoglycemia,and testing in the Laboratory should be considered if clinically indicated. Blood 10/14/2023 3:04 AM F[employer] WORKER GENERAL 10/14/2023 3:04 AM F[employer] WORKER GENERAL Frank Cody MD LAB POCT ORDERABLES - DEVICE Fin al Result Performing Organization Address [facility] de Phone Number [facility]3] [address] [place], [place] [id number] * (ABNORMAL) POCT glucose (10/14/2023 2:05 AM FOUN[employer]Y WORKER GENERAL) Glucose, POC 425(H) 70 - 140 mg/dL [facility]3] Comment: For Glucose values <35 mg/dl when Hematocrit is >60 mg/dl,the test may not accurately detect significant hypoglycemia,and testing in the Laboratory should be considered if clinically indicated. Blood 10/14/2023 2:05 AM F[employer] WORKER GENERAL 10/14/2023 2:05 AM FOUN[employer]Y WORKER GENERAL us Frank Cody MD LAB POCT ORDERABLES - DEVICE Fin al Result [facility]3] [address] [place] [address] * eGFR (10/14/2023 1:04 AM FOUNDRY WORKER GENERAL) eGFR 5 mL/min/1. 73 m2 [facility]3] Comment: Interpretive Data Reference Interval Normal ?>/= [...] last reviewed 2021. Blood 10/14/2023 1:04 AM [employer] WORKER GENERAL 10/14/2023 1:36 AM FOUN[employer] WORKER GENERAL us Vinay Pratt DO LAB BLOOD ORDERABLES F inal Result [facility]3] [address] Department [place] [address] * (ABNORMAL) Differential, auto (10/14/2023 1:04 AM F[employer] WORKER GENERAL) Neutrophil abs 4.8 1.5 - 6.5 K/cumm [facility]3] Imm gran abs 0.1 0.0 - 0.1 K/cumm [facility]3] Lymphocyte abs 0.7(L) 0.8 - 3.3 K/cumm [facility]3] Monocyte abs 0.7 0.2 - 0.8 K/cumm [facility]3] Eosinophil abs 0.0 0.0 - 0.5 K/cumm [facility]3] Basophil abs 0.0 0.0 - 0.1 K/cumm [facility]3] Neutrophil pct 77.4 % [facility]3] Comment: Interpretive Data Percent cell count reference ranges are not reported, since discordance with absolute values may lead to misinterpretation of CBC data. Current Interpretive Data was last revised on 2017. Imm gran pct 1.0 % [facility]3] Comment: Interpretive Data Percent cell count reference ranges are not reported, since discordance with absolute values may lead to misinterpretation of CBC data. Current Interpretive Data was last revised on 2017. Lymphocyte pct 10.4 % [facility]3] Comment: Interpretive Data Percent cell count reference ranges are not reported, since discordance with absolute values may lead to misinterpretation of CBC data. Current Interpretive Data was last revised on 2017. Monocyte pct 11.2 % [facility]3] Comment: Interpretive Data Percent cell count reference ranges are not reported, since discordance with absolute values may lead to misinterpretation of CBC data. Current Interpretive Data was last revised on 2017. Eosinophil pct 0.0 % [facility]3] Comment: Interpretive Data Percent cell count reference ranges are not reported, since discordance with absolute values may lead to misinterpretation of CBC data. Current Interpretive Data was last revised on 2017. Basophil pct 0.0 % [facility]3] Comment: Interpretive Data Percent cell count reference ranges are not reported, since discordance with absolute values may lead to misinterpretation of CBC data. Current Interpretive Data was last revised on 2017. Blood 10/14/2023 1:04 AM [employer] WORKER GENERAL 10/14/2023 1:36 AM [employer] WORKER GENERAL Vinay Pratt LAB BLOOD ORDERABLES F inal Result Performing Organization Address [facility] de Phone Number [facility]3] [address] Department [place] [address] * (ABNORMAL) aPTT (10/14/2023 1:04 AM FOUN[employer]Y WORKER GENERAL) aPTT 68(H) 28 - 38 sec [facility]3] Comment: Interpretive Data Heparin therapeutic range: 66.0 - 100.0 seconds. Range based on correlation with therapeutic heparin activity range of 0.3 - 0.7 Units/mL. Current interpretive data was last revised on 2023. Blood 10/14/2023 1:04 AM [employer] WORKER GENERAL 10/14/2023 1:36 AM FOUNDRY WORKER GENERAL Narrative [facility]3] - 10/14/2023 1:49 AM [employer] WORKER GENERAL Baseline prior to heparin initiation Vinay Favian Pratt LAB BLOOD ORDERABLES F inal Result Performing Organization Address [facility] de Phone Number [facility]3] [address] [facility] [place] [address] * Protime-INR (10/14/2023 1:04 AM F[employer] WORKER GENERAL) PT 13.5 10.3 - 13.7 sec [facility]3] INR 1.18 0.90 - 1.20 [facility]3] Comment: Interpretive data Oral anticoagulant therapeutic ranges: Venous thromboembolism prophylaxis or treatment: 2.0-3.0 CARDIOLOGY Standard range: 2.0-3.0 High-intensity range: 2.5-3.5 Refer to indication-specific guidelines for appropriate target ranges for prosthetic heart valve replacement. Current interpretive data was last revised on 2019. Blood 10/14/2023 1:04 AM [employer] WORKER GENERAL 10/14/2023 1:36 AM FOUNDRY WORKER GENERAL Narrative [facility]3] - 10/14/2023 1:49 AM [employer] WORKER GENERAL Baseline prior to heparin initiation Vinay Pratt LAB BLOOD ORDERABLES F inal Result Performing Organization Address [facility]/ZIP Co de Phone Number [facility]3] [address] [place] [address] * (ABNORMAL) CBC with auto differential (10/14/2023 1:04 AM F[employer] WORKER GENERAL) WBC 6.2 3.8 - 9.9 K/cumm [facility]3] Hgb 9.4(L) 13.0 - 17.5 g/dL [facility]3] Hct 29.0(L) 38.9 - 50.3 % [facility]3] Plt 357 150 - 400 K/cumm [facility]3] MPV 11.0 9.1 - 12.3 fL [facility]3] RBC 3.21(L) 4.30 - 5.80 M/cumm [facility]3] MCV 90.3 81.3 - 96.4 fL [facility]3] MCH 29.3 27.1 - 33.3 pg [facility]3] MCHC 32.4 32.3 - 35.7 g/dL [facility]3] RDW CV 13.6 11.1 - 14.9 % [facility]3] RDW SD 44.1 35.7 - 48.1 fL [facility]3] NRBC abs 0.00 0.00 - 0.01 K/cumm [facility]3] Blood 10/14/2023 1:04 AM [employer] WORKER GENER[employer] 10/14/2023 1:36 AM [employer] WORKER GENERAL Vinay Pratt LAB BLOOD ORDERABLES F inal Result Performing Organization Address [facility]/ZIP Co de Phone Number [facility]3] [address] [place] [address] * (ABNORMAL) Comprehensive metabolic panel (10/14/2023 1:04 AM F[employer] WORKER GENERAL) Sodium 130(L) 135 - 145 mmol/L [facility]3] Potassium, pl 4.3 3.3 - 4.9 mmol/L [facility]3] Chloride 90(L) 97 - 110 mmol/L [facility]3] CO2 21(L) 22 - 32 mmol/L [facility]3] Anion gap 19(H) 2 - 15 mmol/L [facility]3] BUN 66(H) 6 - 25 mg/dL [facility] ([facility])[3] Creatinine 10.57(H) 0.80 - 1.30 mg/dL [facility] ([facility])[3] Glucose 453(C) 70 - 199 mg/dL [facility] ([facility])[3] Comment: Critical result called to and read back by Brit Zeng RN on 10/14/2023 0211 to [id number] Interpretive Data Fasting glucose >/= 126 mg/dl [...] 2022. Calcium 9.2 8.5 - 10.3 mg/dL [facility] ([facility])[3] Bilirubin, total 0.3 0.1 - 1.2 mg/dL [facility] ([facility])[3] Protein, pl 6.4(L) 6.5 - 8.5 g/dL [facility] ([facility])[3] Albumin 3.4(L) 3.5 - 5.0 g/dL [facility] ([facility])[3] Alk phos 98 40 - 130 Units/L [facility] ([facility])[3] ALT 21 7 - 55 Units/L [facility] ([facility])[3] AST 28 10 - 50 Units/L [facility] ([facility])[3] Blood 10/14/2023 1:04 AM FOUNDRY WORKER GENERAL 10/14/2023 1:36 AM FOUNDRY WORKER GENERAL Vinay Pratt DO LAB BLOOD ORDERABLES F inal Result [facility] [address] [place] [address] * (ABNORMAL) POCT glucose (10/13/2023 11:25 PM FOUNDRY WORKER GENERAL) [facility] Signature Glucose, POC 534(C) 70 - 140 mg/dL [facility] ([facility])[3] Comment: For Glucose values <35 mg/dl when Hematocrit is >60 mg/dl,the test may not accurately detect significant hypoglycemia,and testing in the Laboratory should be considered if clinically indicated. Glucose comment 1 Glu2: [facility] ([facility])[3] Blood 10/13/2023 11:2 5 PM FOUNDRY WORKER GENERAL 10/13/2023 11:25 PM FOUNDRY WORKER GENERAL Frank Cody MD LAB POCT ORDERABLES - DEVICE Fin al Result Performing Organization Address [facility] Co de Phone Number [facility] [address] [place] [address] documented in this encounter Visit Diagnoses Diagnosis CAD in [place] artery- Primary CAD in [place] artery 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[place] artery of [place] heart with stable angina pectoris ([facility]) ([facility]) Aortic stenosis, severe S/P CABG x 3 Postsurgical aortocoronary bypass status NSTEMI (non-ST elevated myocardial infarction) ([facility]) ([facility]) Acute myocardial infarction, subendocardial infarction, episode of care unspecified S/P AVR Aortic valve stenosis, etiology of cardiac valve disease unspecified Coronary arteriosclerosis in [place] artery documented in this encounter Admitting Diagnoses Diagnosis CAD in [place] artery documented in this encounter Administered Medications [...] CDT 500 mg al & mag hydroxide usjgitkukuy-cmwrqvznxfatfbw-lmxtgtlpt-nystatin (MAGIC MOUTHWASH) oral suspension 1-1-1-1 20 mL [...] Call MD for each episode of hypoglycemia. TOOL AND MACHINE MAINTAINER STATES GLUTOSE-15 CONTAINS GLUCOSE 40% W/W (50% [...] DialysisIndications:ESRD on Dialysis Given 10/27/2023 10:12 PM FOUNDRY WORKER GENERAL 10,000 Units Left Upper Arm Extraneal 7.5% [...] Mon10/24/23 at 0739 Given 10/24/2023 7:45 AM FOUNDRY WORKER GENERAL 200 mg heparin 5,000 unit/mL injection 2,000 [...] manually unheldIndications:Diabetes Mellitus Given 10/23/2023 8:03 AM FOUNDRY WORKER GENERAL 4 Units Right Upper Arm Given 10/22/2023 9:17 PM FOUNDRY WORKER GENERAL 2 Units Le ft Upper Arm Given 10/22/2023 1:39 PM FOUNDRY WORKER GENERAL 2 Units Ri ght Upper Arm insulin [...] unheldIndications:Diabet es Mellitus Given 10/23/2023 8:03 AM FOUNDRY WORKER GENERAL 4 Units Right Upper Arm insulin lispro [...] unheldIndications:Diabet es Mellitus Given 10/23/2023 8:03 AM FOUNDRY WORKER GENERAL 15 Units Right Upper Arm insulin NPH [...] at 0905, Intra-Op Given 10/17/2023 9:05 AM FOUNDRY WORKER GENERAL 50 mL Surgical Site ondansetron (ZOFRAN) injection 4 mg 4 mg, intravenous, Administer over 2 Minutes, Every 6 hours PRN, nausea, vomiting, Starting on Mon10/17/23 at 1324, Administer no sooner than 6 hours after last dose. , Indications: Nausea and VomitingIndications:Nausea and Vomiting Given 10/25/2023 9:13 AM FOUNDRY WORKER GENERAL 4 mg Given 10/19/2023 5:21 PM FOUNDRY WORKER GENERAL 4 mg Given 10/19/2023 10:48 AM FOUNDRY WORKER GENERAL [address] (PROTONIX) extended release [...] at 0906, Intra-Op Given 10/17/2023 9:06 AM FOUNDRY WORKER GENERAL 500 mL Other (Comment) polyethylene glycol (MIRALAX) packet 17 g 17 g, oral, Daily, First dose (after last modification) on Mon10/20/23 at 1045, Hold for diarrhea, Indications: constipationIndications:constip ation Given 10/30/2023 8:15 AM CDT 17 g Given 10/29/2023 8:19 AM CDT 17 g Given 10/22/2023 8:13 AM FOUNDRY WORKER GENERAL 17 g potassium chloride ER (KLOR-CON) extended [...] 8 m g Given 10/26/2023 10:57 PM FOUNDRY WORKER GENERAL 8 mg Given 10/25/2023 9:05 PM FOUNDRY WORKER GENERAL 8 mg senna (SENOKOT) tablet 1 tablet [...] CDT 10 mL Given 10/28/2023 12:40 AM FOUNDRY WORKER GENERAL 20 mL Given 10/25/2023 9:14 AM FOUNDRY WORKER GENERAL 10 mL sodium chloride 0.9% irrigation As needed, Starting on Mon10/17/23 at 0908, Intra-Op Given 10/17/2023 9:08 AM FOUNDRY WORKER GENERAL 4,000 mL Surgical Site sodium chloride tablet [...] 11/02/2023 11/03/2023 al & mag hydroxide simethicone-diphenhydrami mf-pfxogyqyn-stsalpes (MAGIC MOUTHWASH) oral suspension 1-1-1-1 20 mL [...] Reason: See Provider Order)1200 (Hold - Provider: Jessiac Rodriguez, RN - Reason: See Provider Order)1800 [...] 2200, At 10 PM with PD at [place]. Hold if no PD planned., Reason for [...] Brar, LUAN) 0839 (Given - Provider: Jessica Rdoriguez, LUAN) pantoprazole DR (PROTONIX) extended release tablet [...] Indications: [place] 0547 (Given - Provider: Kezia aPlmer RN)1430 (Given - Provider: Yamilet Hay RN)202 [...] Call MD for each episode of hypoglycemia. TOOL AND MACHINE MAINTAINER STATES GLUTOSE-15 CONTAINS GLUCOSE 40% W/W (50% [...] Call MD for each episode of hypoglycemia. TOOL AND MACHINE MAINTAINER STATES GLUTOSE-15 CONTAINS GLUCOSE 40% W/W (50% [...] 4 024 10/23/2023 al & mag hydroxide qgtpdijdvvc-safzwhcbonqxbeh-fbiwjczba-nyst atin (MAGIC MOUTHWASH) oral suspension 1-1-1-1 20 [...] TO ENDOCRINOLOGY 1 10/18/2023 IP CONSULT TO SCHOOL PSYCHOLOGICAL EXAMINER 1 IP CONSULT TO CARDIOLOGY 1 10/14/2023 [...] 11/03/2023 documented in this encounter Care Teams Stamp Mounter Relationship Specialty Start Date End Date Aditya Correa MD [address] [facility] [place] [address] PCP - General 10/17/19 documented as of this encounter
--- OUTSIDE RECORDS SUMMARY | 2024-09-07 23:37 | XMS_ITS | Encounter Summary ---
Author Organization [facility] Healthcare Address [address] [place] [address] Care Team Providers Care Perinatal Technician Name Role Phone Aditya Castro MD Primary Care Provider [phone] Encounter Details Date Type Department Care Team (Late st Contact Info) Description 10/13/2023 Orders Only [facility] [address] [place] [id number] Julio Lopez DO [facility] [facility] [place] [address] Social History Tobacco Use Types Packs/Day Years Used Date Smoking Tobacco: Never Smokeless Tobacco: Former Alcohol Use Standard Drinks/Week Comments No 0 (1 standard drink = 0.6 oz pur e alcohol) [facility] Utilities Answer Date Recorded In the past 12 months has Capital [employer], gas, oil, or water [place] threatened to shut off services in your [...] week 10/16/2023 How often do you attend [facility] or denominational services? 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
--- OUTSIDE RECORDS SUMMARY | 2024-09-07 23:37 | XMS_ITS | Encounter Summary ---
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 Gender Identity Not on file Sexual Orientation Not on file documented as of this encounter Plan of Treatment Not on file documented as of this encounter Procedures Procedure Name Priority Date/Time Associated Diagnosis Comments CARDIOLOGY DOCUMENT SCAN Routine 023 10:15 AM COLLEGE SPORTS COACH documented in this encounter Results * Cardiology Document Scan (07/26/2023 10:15 AM COLLEGE SPORTS COACH) Anatomical Region Laterality Modality Other us Cyndi Nielson MD CV CARDIAC SERVICES PROCEDU RES Final Result documented in this encounter Visit Diagnoses Not on filedocumented in this encounter Care Teams Donations Attendant Relationship Specialty Start Date End Date Aditya Castro MD [address] [facility] [place] [address] PCP - General 10/17/19 documented as of this encounter
--- OUTSIDE RECORDS SUMMARY | 2024-09-07 23:37 | XMS_ITS | Encounter Summary ---
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 [place] [address] PCP - General 10/17/19 documented as of this encounter
--- OUTSIDE RECORDS SUMMARY | 2024-09-07 23:37 | XMS_ITS | Encounter Summary ---
Author Organization [facility] Address [address] [place] [address] Phone Care Team Providers Care Manager Department Name Role Phone Aditya Castro MD Primary Care Provider [phone] Encounter Details Date Type Department Care Team (Late st Contact Info) Description 06/15/2022 10:10 AM CDT Ancillary Procedure 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 The common femoral, femoral, popliteal, posterior tibial, peroneal veins were evaluated for patency, spontaneity and phasicity with Doppler, compression and augmentation maneuvers. Great saphenous vein proximal at the junction was evaluated with compression maneuvers. Indications: Localized edema. Findings: Performing Parking Lot Signaler: Faye Zheng RVT, RDMS. Bilateral: Venous Doppler [...] performed. Electronically Signed By: Jase Mendez MD [facility] 2022-06-15 12:34:44 CDT CC: CC: Procedure Note Jase Mendez MD - 06/15/2022 [facility] - Department of Vascular Surgery,Vascular Laboratory [address] [place] [address] Lower Extremity Venous Ultrasound Report Patient Name: JUVENAL GARVIN CPatient ID: [id number] : 1970 (51y 9m)Study Date: 06/15/2022 10:29:44 AM Gender: MAccession #: [id number] Tech: CDLocation: [id number] Ref.Provider: Leandro ADAMSality: Adequate Order Provider: Ramez ADAMS #: [id number] Procedures: Vascular Report: Venous Duplex imaging was performed bilaterally in the lower extremities.The common femoral, femoral, popliteal, posterior tibial, peroneal veins wereevaluated for patency, spontaneity and phasicity with Doppler, compression and augmentationmaneuvers. Great saphenous vein proximal at the junction was evaluated with compressionmaneuvers. Indications: Localized edema. Findings: Performing Parking Lot Signaler: Faye Zheng RVT, RDMS. Bilateral: Venous Doppler [...] performed. Electronically Signed By: Jase Mendez MD [facility] 2022-06-15 12:34:44 CDT CC: CC: us Kimberlee Adams MD IMG US PROCEDURES Final Res ult documented in this encounter Visit Diagnoses Not on filedocumented in this encounter Additional Health Concerns Infection Onset Date Last Indicated Resolved Time COVID: Suspected 06/15/2022 06/15/2022 06/15/2022 1:03 PM CDT documented as of this encounter Care Teams Manager Department Relationship Specialty Start Date End Date Aditya Castro MD [address] [facility] [place] [address] PCP - General 10/17/19 documented as of this encounter
--- OUTSIDE RECORDS SUMMARY | 2024-09-07 23:37 | XMS_ITS | Encounter Summary ---
Author Organization [facility] Address [address] [place] [address] Phone Care Team Providers Care Clip Wrapper Name Role Phone Aditya Castro MD Primary Care Provider [phone] Reason for Visit * Reason Onset Date Comments NEW CONSULT 06/23/2022 Encounter Details Date Type Department Care Team (Late st Contact Info) Description 06/23/2022 Telephone [facility] Cardiology [address] [facility] 8th [place] [address] [place] [address] Azra Lo NEW CONSULT Social [...] 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 HUNG BRITO CALLER'S PAGER: [phone] PATIENT'S NAME: Juvenal Daigle Jr. : 1970 CAMPUS: [facility] PATIENT'S LOCATION: [address] [place] [address] REASON FOR CONSULT: CP & POST CATH ATTENDING PHYSICIAN: DR. BRITO documented in this encounter Plan of Treatment Not on file documented as of this encounter Visit Diagnoses Not on filedocumented in this encounter Care Teams Clip Wrapper Relationship Specialty Start Date End Date Aditya Castro MD [address] [facility] [place] [address] PCP - General 10/17/19 documented as of this encounter
--- OUTSIDE RECORDS SUMMARY | 2024-09-07 23:37 | XMS_ITS | Encounter Summary ---
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 5 insulin pump with [employer] G6 CGM at home settings: TIME BASAL [...] on filedocumented in this encounter Care Teams Chucking And Boring Machine Operator Relationship Specialty Start Date End Date Aditya Castro MD [address] [facility] [place] [address] PCP - General 10/17/19 documented as of this encounter
--- OUTSIDE RECORDS SUMMARY | 2024-09-07 23:39 | XMS_ITS | Encounter Summary ---
Author Organization [facility] Healthcare Address [address] [place] [address] Care Team Providers Care Telegrapher Agent Name Role Phone Aditya Castro MD Primary Care Provider [phone] Reason for Visit * Auth/Cert Specialty Diagnoses / Procedures Referred By Aguilar t Referred To Contact Diagnoses Angina pectoris (HCC) NON STEMI CARDS FIRM, PD, covid neg Procedures N/A Referral ID Status Reason Start Date Expiration Date Visits Re quested Visits Authorized [id number] 1 1 Encounter Details Date Type Department Care Team (Late st Contact Info) Description 06/10/2022 10:05 AM CDT - 06/10/2022 11:50 AM CDT Surgery [facility] [address] [place] [address] Champ Osborne MD PhD [address] [place] [address] REMOVE PERC ARTERIAL VAD (IMPELLA), DIFFERENT SESSION [id number] Surgery Details Date/Time Status Location OR Service Patient Class Case Class Case Type Trauma Case? 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 Gender Identity Not on file Sexual [...] Care Physician at Discharge: Aditya Castro MD [phone] Admission Date: 06/04/2022 Discharge Date: 06/29/2022 Admission Location: [facility] Problems/Diagnoses: Principal Problem: NSTEMI (non-ST elevated myocardial infarction) ([facility]/HCC) ([facility]) Active Problems: Cardiogenic shock (HCC) Type 1 diabetes mellitus (HCC) ESRD (end stage renal disease) (CMS/HCC) ([facility]) Acute hypoxemic respiratory failure (HCC) Anemia Acute on chronic HFrEF (heart failure with reduced ejection fraction) ([facility]) Atrial fibrillation (CMS/HCC) ([facility]) Resolved Problems: No resolved hospital problems. DETAILS OF HOSPITAL STAY Presenting Problem/History of Present Illness: As per Admission H&P AC), HTN, CAD s/p stent 04/06 and 3 stent 12/07, T1DM (insulin pump at home), ESRD on PD, HLD, GERD, hyperparathyroidism, DDD, OA, gout, BEN on CPAP initially presented to [facility] for n/v andchest pain, transferred to [facility] for LHC/PCI, now presenting to CCU s/p complex PCI with impella and intubated. At the OSH he presented with 3d generalized weakness, chills, ROONEY, n/v, chest pain relieved by sublingual ntg. His labs were notable for trop 1.0-->1.09-->0.729, BNP 17415. He had a CT CAP showing cholelithiasis [...] circumflex as optimal treatment, prompting transfer to [facility]. He arrived at [facility] 06/05. EKG showed sinus bradycardia, 1st deg [...] * NSTEMI (non-ST elevated myocardial infarction) (CMS/HCC) ([facility]) With interventions described above. Post-transfer and post-cath, [...] discharge given pressure tolerance. Atrial fibrillation (CMS/HCC) ([facility]) He was in atrial fibrillation on transfer [...] HFrEF (heart failure with reduced ejection fraction) ([facility]) He developed cardiogenic shock requiring impella in the setting of cath c/b AHRF 2/2 pulmonary edema. Post-cath, TTE demonstrated recovered EF 65% with grade I diastolic dysfunction. Volume was managed with CRRT in ICU, then by resumption of PD on the medical floor. In discussion with nephrology, low dose losartan was started for GDMT in addition to metoprolol. ESRD (end stage renal disease) ([facility]) ([facility]) Renal consulted on admission with history of ESRD on PD. While in ICU, temporary dialysis catheter was placed to facilitate CRRT for volume removal. Upon transfer to the floor, PD was continued and tolerated well. He was continued on his home vitamins for renal bone mineral disease and phoslo. Trialysis removed 06/25. Type 1 diabetes mellitus ([facility]) Prior to admission, his A1c was well [...] REMOVE PERC ARTERIAL VAD (IMPELLA), DIFFERENT SESSION [id number] Other Procedures: Pertinent Test Results: See hospital [...] one tablet three times daily Outpatient Follow-Up: TROLLEY AND TAXI INSTRUCTOR documented in this encounter Discharge Instructions * Discharge Instructions* Frank Bowers MD - 06/29/2022 9:19 AM BUS TROLLEY AND TAXI INSTRUCTOR Mr. Adelia Garvin, You were admitted to the hospital for chest pain, and you were seen by our cardiology specialists where you received a new stent placed. As you have improved and are tolerating your insulin pump wellas well as your dialysis, you are stable to be discharged to the rehab facility. Continue Omnipod 5 insulin pump with [email or web address] G6 CGM at home settings: TIME BASAL [...] and adjust insulin pump settings as needed. TROLLEY AND TAXI INSTRUCTOR TROLLEY AND TAXI INSTRUCTOR documented in this encounter Medications at Time [...] Destination Discharge to an Rehab facility [facility] documented in this encounter Progress Notes * Elsie Gonzalez RN - 06/29/2022 11:30 AM CST 06/06/22 1203 Discharge Summary Chart reviewed For Medical Necessity Does patient have a planned readmission to hospital planned? No Discharge Disposition Home;Inpatient (Acute) Rehab Hospital Specify Facility [facility] Facility Contact Number Contact- Minerva Hurt- [phone] for report- [phone] fax [phone] Equipment/Provider Needs No Home Needs Identified Discharge Additional Assistance Does the patient need discharge transport arranged? No (family to transport to [facility]) Post Discharge Care Provider Post Discharge Care Plan DC Summary and post acute care report has been faxed to next level of careprovider (see Follow Up Providers) Patient is medically stable to discharge home today. Patient will have transportation provided by the patient's brother. Patient instructed to f/u with PCP after release from [facility]. No additional needs noted at this time. TROLLEY AND TAXI INSTRUCTOR TROLLEY AND TAXI INSTRUCTOR * Frank Bowers MD - 06/29/2022 10:12 AM CST Daily Progress Note Division of Hospital Medicine Name: Adelia Garvin Jr. Today: June 29, 2022 : 1970 Age: 51 y.o. male Admit: 06/04/2022 Bed: [id number] Subjective Chief complaint: NSTEMI Interval History: Pt [...] 06/29/2022 0815 Gross per 24 hour Intake 40215 ml Output 42231 ml Net -664 ml Physical Exam Constitutional: [...] * NSTEMI (non-ST elevated myocardial infarction) (CMS/HCC) ([facility]) Assessment & Plan With recurrent chest pain [...] rehab today ESRD (end stage renal disease) (CMS/[facility]) ([facility]) Assessment & Plan - Renal consulted, s/p CRRT in the ICU now back on PD. Tolerated well and nephrology following - Trialysis catheter removed - Continue vitamins for renal bone mineral disease. Type 1 diabetes mellitus ([facility]) Assessment & Plan A1c well controlled on [...] of peritoneal dialysis session Atrial fibrillation (CMS/HCC) ([facility]) Assessment & Plan Converted to NSR overnight [...] including recommendations regarding insulin pump at discharge TROLLEY AND TAXI INSTRUCTOR TROLLEY AND TAXI INSTRUCTOR * Janelle Romero OT - 06/29/2022 9:30 [...] not assigned to this patient, please call [phone]. 06/29/22 0930 General Session Type Treatment OT [...] demonstrate modified independence/independence with ADL task completion. TROLLEY AND TAXI INSTRUCTOR * Kip Julian PT - 06/29/2022 8:53 AM CST Physical Therapy 06/29/22 0853 General PT Missed Visit Reason Patient declined TROLLEY AND TAXI INSTRUCTOR * Frank Bowers MD - 06/28/2022 3:30 PM CST Daily Progress Note Division of Hospital Medicine Name: Adelia Garvin Jr. Today: June 28, 2022 : 1970 Age: 51 y.o. male Admit: 06/04/2022 Bed: [id number] Subjective Chief complaint: NSTEMI Interval History: Pt [...] 06/28/2022 1300 Gross per 24 hour Intake 89749 ml Output 40219 ml Net -851 ml Physical Exam Constitutional: [...] Resolved. * NSTEMI (non-ST elevated myocardial infarction) ([facility]) ([facility]) Assessment & Plan With recurrent chest pain [...] been accepted ESRD (end stage renal disease) ([facility]) ([facility]) Assessment & Plan - Renal consulted, s/p CRRT in the ICU now back on PD. Tolerated well and nephrology following - Trialysis catheter removed - Continue vitamins for renal bone mineral disease. Type 1 diabetes mellitus ([facility]) Assessment & Plan A1c well controlled on [...] increase NPH 45u before PD Atrial fibrillation ([facility]) ([facility]) Assessment & Plan Converted to NSR overnight on 06/24. CHADsVASc of 4 not on anticoagulation prior to admission. - cardiology consulted - recommended ongoing rate control - holding off on a/c with high risk for bleeding while on DAPT - reduced metop to 25mg BID in the setting of hypotension, HR 70s NSR Acute on chronic HFrEF (heart failure with reduced ejection fraction) ([facility]) Assessment & Plan C/b cardiogenic shock requiring [...] 06/19. Patient passed barium swallow on 06/21. TROLLEY AND TAXI INSTRUCTOR * Shelbie Garcia, RD - 06/28/2022 2:38 [...] Diabetes mellitus type I (HCC) Dialysis patient (CMS/[facility]) (HCC) ESRD on dialysis (CMS/[facility]) (HCC) GERD (gastroesophageal reflux disease) Hyperlipidemia [...] of Weight Used for Estimated Protein : [place] Protein Needs Based on g/k.5 Total Protein [...] 06/28/2022 1300 Gross per 24 hour Intake 14776 ml Output 09988 ml Net -851 ml Gastrointestinal Gastrointestinal (WDL): [...] Comments: Heart Healthy Diet Question Answer Comment ([facility]) Diet type Restricted Fat / Sodium [...] of his insulin pump. Pt seen by WORLD GEOGRAPHY TEACHER today. Can continue on regular textured foods [...] Stool patterns, Weight changes Shelbie Garcia RD [phone] TROLLEY AND TAXI INSTRUCTOR * Carey East MD - 06/27/2022 4:57 PM CST Daily Progress Note Division of Hospital Medicine Name: Adelia Garvin Jr. Today: June 27, 2022 : 1970 Age: 51 y.o. male Admit: 06/04/2022 Bed: [id number] Subjective Chief complaint: CAD s/p PCI, T1DM, [...] 06/27/2022 0745 Gross per 24 hour Intake 33336 ml Output 92394 ml Net -1949 ml Physical Exam Constitutional: [...] transferred to the floor, improving. Atrial fibrillation ([facility]) ([facility]) Assessment & Plan Converted to NSR overnight on 06/24. CHADsVASc of 4 not on anticoagulation prior to admission. - cardiology consulted - recommended ongoing rate control - holding off on a/c with high risk for bleeding while on DAPT - reduced metop to 25mg BID in the setting of hypotension, HR 70s NSR Acute on chronic HFrEF (heart failure with reduced ejection fraction) ([facility]) Assessment & Plan C/b cardiogenic shock requiring impella in the setting of cath and AHRF 2/2 pulmonary edema, now resolved. TTE demonstrating recovered EF 65% with grade I diastolic dysfunction. - metop as above - continue low dose losartan 12.5mg daily, ok per nephro - volume management per PD ESRD (end stage renal disease) ([facility]) ([facility]) Assessment & Plan - Renal consulted, s/p CRRT in the ICU now back on PD. - Continue vitamins for renal bone mineral disease - continue phoslo Type 1 diabetes mellitus ([facility]) Assessment & Plan A1c well controlled on [...] PD * NSTEMI (non-ST elevated myocardial infarction) ([facility]) ([facility]) Assessment & Plan With recurrent chest pain [...] recs, CM aware and searching for facilities TROLLEY AND TAXI INSTRUCTOR * Arleen Andre MD - 06/27/2022 3:50 PM CST ASSESSMENT AND RECOMMENDATIONS ESRD: He is doing well on the current PD regimen. Ultrafilters approximately 4496-7123 ml/day. Continue current regimen Hypokalemia: Start Kcl [...] (mL): 785 mL Fill Volume In (mL): 41454 mL Effluent Volume Out (mL): 33502 ml Balance This Exchange (mL): 1944 mL [...] edema I/O last 2 completed shifts: In: 57768 [P.O.:440; Other:07299] Out: 42749 [Urine:300; Other:41480] I have reviewed current medications and the [...] FERRITIN 2,062 (H) 06/07/[address] worker Division of Nephrology TROLLEY AND TAXI INSTRUCTOR * So Lawrence, OT - 06/27/2022 9:37 [...] not assigned to this patient, please call [phone]. 06/27/22 0937 General Session Type Treatment OT [...] demonstrate modified independence/independence with ADL task completion. TROLLEY AND TAXI INSTRUCTOR * Carlos Dupree MD - 06/26/2022 4:13 PM CST Endocrinology & Diabetes Progress Note Patient: Adelia Garvin Jr., 51 y.o. male (: 1970) Room: [place] [address]/[id number] ( ) LOS: 22 Adelia Garvin Jr. [...] agitation. 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, with shelter use of insulin, complicated by ESRD on PD, CAD s/p PCI, CHF - HbA1c 7.4% - Uses Omnipod and Dexcom G6 at home, not currently on this- doesn't have the supplies -On significantly higher basal rates on pump at night due to peritoneal dialysis -home settings: Basal rate 0330 >>1.7 0800 >> 0.8 2000 >> 5.8 ICR1:6.5 ISF1:25 UJE067 TIA 4 Inpatient glycemic management complicated by [...] ## Discharge Planning - Follow-up with home telescope repairer -- Carlos Dupree MD Endocrinology, Metabolism, & Lipid Research Contact Info: New Consults: [phone]) General Endocrine (Non-Diabetes): [phone] (Check 'Treatment Team' assignment for Diabetes 1 vs 2 vs 3) Diabetes 1: Diabetes Fellow: [phone] Diabetes 2: Dora Delarosa, COMMUNICATION SPECIALIST: [phone] Diabetes 3: See Treatment Team Provider (or call Dora Delarosa, above) Diabetes After-Hours & Weekends: Diabetes Fellow TROLLEY AND TAXI INSTRUCTOR * Carey East MD - 06/26/2022 12:39 PM CST Daily Progress Note Division of Hospital Medicine Name: Adelia Garvin Jr. Today: June 26, 2022 : 1970 Age: 51 y.o. male Admit: 06/04/2022 Bed: [id number] Subjective Chief complaint: CAD s/p PCI, T1DM, [...] 06/26/2022 1110 Gross per 24 hour Intake 00208 ml Output 87919 ml Net -1847 ml Physical Exam Constitutional: [...] transferred to the floor, improving. Atrial fibrillation ([facility]) ([facility]) Assessment & Plan Converted to NSR overnight on 06/24. CHADsVASc of 4 not on anticoagulation prior to admission. - cardiology consulted - recommended ongoing rate control - holding off on a/c with high risk for bleeding while on DAPT - reduce metop to 25mg BID today in the setting of hypotension, HR 60s Acute on chronic HFrEF (heart failure with reduced ejection fraction) ([facility]) Assessment & Plan C/b cardiogenic shock requiring impella in the setting of cath and AHRF 2/2 pulmonary edema, now resolved. TTE demonstrating recovered EF 65% with grade I diastolic dysfunction. - metop as above - continue low dose losartan 12.5mg daily, ok per nephro - volume management per PD ESRD (end stage renal disease) ([facility]) ([facility]) Assessment & Plan - Renal consulted, s/p CRRT in the ICU now back on PD. - Trialysis catheter still in place --> removed today - Continue vitamins for renal bone mineral disease - resume phoslo today Type 1 diabetes mellitus ([facility]) Assessment & Plan A1c well controlled on [...] PD * NSTEMI (non-ST elevated myocardial infarction) ([facility]) ([facility]) Assessment & Plan With recurrent chest pain. [...] acute rehab per PT recs, CM aware TROLLEY AND TAXI INSTRUCTOR * Carey East MD - 06/25/2022 11:51 AM CDT Daily Progress Note Division of Hospital Medicine Name: Adelia Garvin Jr. Today: June 25, 2022 : 1970 Age: 51 y.o. male Admit: 06/04/2022 Bed: [place] [id number]/[id number] Subjective Chief complaint: CAD s/p PCI, T1DM, [...] 06/25/2022 0600 Gross per 24 hour Intake 72516 ml Output 40495 ml Net -2404 ml Physical Exam Constitutional: [...] HFrEF (heart failure with reduced ejection fraction) ([facility]) Assessment & Plan C/b cardiogenic shock requiring impella in the setting of cath and AHRF 2/2 pulmonary edema, now resolved. TTE demonstrating recovered EF 65% with grade I diastolic dysfunction. - metop as above - start low dose losartan 12.5mg daily today, ok per nephro - volume management per PD ESRD (end stage renal disease) ([facility]) ([facility]) Assessment & Plan - Renal consulted, s/p CRRT in the ICU now back on PD. - Trialysis catheter still in place --> removed today - Continue vitamins for renal bone mineral disease. Type 1 diabetes mellitus ([facility]) Assessment & Plan A1c well controlled on [...] today * NSTEMI (non-ST elevated myocardial infarction) ([facility]) ([facility]) Assessment & Plan With recurrent chest pain. [...] decrease to daily Acute hypoxemic respiratory failure ([facility]) Assessment & Plan Secondary to ACS and flash pulmonary edema, since resolved and extubated on 06/19. Patient passed barium swallow on 06/21. Cardiogenic shock ([facility]) Assessment & Plan Secondary to NSTEMI, s/p [...] mobility Prior Function Prior Function Level of [place]: Independent with ADLs, Independent functional transfers, Independent [...] not assigned to this patient, please call [phone]. * Carey East MD - 06/24/2022 4:30 PM CDT Daily Progress Note Division of Hospital Medicine Name: Adelia Garvin Jr. Today: June 24, 2022 : 1970 Age: 51 y.o. male Admit: 06/04/2022 Bed: [id number] Subjective Chief complaint: CAD s/p PCI, T1DM, [...] 06/24/2022 0536 Gross per 24 hour Intake 61627 ml Output 89010 ml Net -347 ml Physical Exam Constitutional: [...] with new chest pressure today. Atrial fibrillation ([facility]/HCC) ([facility]) Assessment & Plan Currently rated controlled with metoprolol, CHADsVASc of 4 not on anticoagulation prior to admission. Rates have been consistently 90-100, not optimal for HF and possibly contributing to demand/chestpain yesterday. - cardiology consulted - consolidated metop to 50mg BID today --> will uptitrate as tolerated by BP for improved HR control Acute on chronic HFrEF (heart failure with reduced ejection fraction) ([facility]) Assessment & Plan C/b cardiogenic shock requiring impella in the setting of cath and AHRF 2/2 pulmonary edema, now resolved. TTE demonstrating recovered EF 65% with grade I diastolic dysfunction. - metop as above - not on NICOLÁS/ARB due to ESRD, d/w nephro - volume management per PD ESRD (end stage renal disease) ([facility]) ([facility]) Assessment & Plan - Renal consulted, s/p CRRT in the ICU now back on PD. - Trialysis catheter still in place --> will remove tomorrow - Continue vitamins for renal bone mineral disease. Type 1 diabetes mellitus ([facility]) Assessment & Plan A1c well controlled on [...] use * NSTEMI (non-ST elevated myocardial infarction) ([facility]) ([facility]) Assessment & Plan With recurrent chest pain. [...] Weakness, N/V, diarrhea, chest pain. Resp failure, [id number]: S/p complex PCI and Impella placement for [...] No Prior Function Prior Function Level of [place]: Independent functional transfers, Independent with ambulation Lives [...] treatment team and contact the PT or BOTTOM BLEACHER currently assigned to this patient. If a physical therapy clinician is not assigned to this patient, please call [phone]. * Carey East MD - 06/23/2022 4:37 PM CDT Daily Progress Note Division of [facility] Hospital Medicine Name: Adelia Garvin Jr. Today: June 23, 2022 : 1970 Age: 51 y.o. male Admit: 06/04/2022 Bed: [id number] Subjective Chief complaint: CAD s/p PCI, T1DM, [...] 06/23/2022 0625 Gross per 24 hour Intake 72865 ml Output 91206 ml Net -2575 ml Physical Exam Constitutional: [...] EKG/Min 100 BPM Atrial Rate 100 BPM NM-Interval (MSEC) 182 ms QRS-Interval (MSEC) 106 ms QT-Interval (MSEC) 380 ms QTc 490 ms R [place] -47 degrees T [place] 105 degrees Diagnosis Sinus rhythm with Premature [...] since removed on 06/10. Resolved. Atrial fibrillation ([facility]) ([facility]) Assessment & Plan Currently rated controlled with metoprolol, CHADsVASc of 4 not on anticoagulation prior to admission. - cardiology consulted - metop as elsewhere Acute on chronic HFrEF (heart failure with reduced ejection fraction) ([facility]) Assessment & Plan C/b cardiogenic shock requiring impella in the setting of cath and AHRF 2/2 pulmonary edema, now resolved. TTE demonstrating recovered EF 65% with grade I diastolic dysfunction. - consolidate metoprolol today: 25 q6h --> 50mg BID - not on NICOLÁS/ARB due to ESRD, will d/w nephro - volume management per PD ESRD (end stage renal disease) ([facility]) ([facility]) Assessment & Plan - Renal consulted, s/p [...] swallow on 06/21. Type 1 diabetes mellitus ([facility]) Assessment & Plan A1c well controlled on [...] use * NSTEMI (non-ST elevated myocardial infarction) ([facility]) ([facility]) Assessment & Plan With recurrent chest pain. [...] gout, BEN on CPAP initially presented to [facility] for generalized weakness, n/v, diarrhea, and chest pain now being transferred for LHC/PCI 06/06. Objective Past Medical History: Diagnosis Date CAD (coronary artery disease) Chest pain Diabetes mellitus (HCC) Diabetes mellitus type I (HCC) Dialysis patient ([facility]) (HCC) ESRD on dialysis ([facility]) (HCC) GERD (gastroesophageal reflux disease) Hyperlipidemia [...] of Weight Used for Estimated Protein : [place] Protein Needs Based on g/k.5 Total Protein [...] 06/23/2022 0625 Gross per 24 hour Intake 24082 ml Output 29462 ml Net -2575 ml Gastrointestinal Gastrointestinal (WDL): [...] Comments: Heart Healthy Diet Question Answer Comment ([facility]) Diet type Restricted Fat / Sodium [...] Supplement tolerance Ronny Vasquez MS RDN LD Insulation Helper RD number [phone] * Luiz Lewis, - 06/22/2022 8:22 PM [...] at 06/22/20221944 Gross per 24 hour Intake 11548 ml Output 83973 ml Net -2209 ml Constitutional - chronically [...] Impella since removed on 06/10. Atrial fibrillation ([facility]/HCC) ([facility]) Assessment & Plan -Currently rated controlled with metoprolol, CHADsVASc of 4 not on anticoagulation prior to admission. -Follow cardiology for initiation of AC. Acute on chronic HFrEF (heart failure with reduced ejection fraction) ([facility]) Assessment & Plan -With acute exacerbation complicated by pulmonary edema since resolved. -Repeat TTE following Impella removal showed recovered EF of 65% with grade I diastolic dysfunction. -Continue metoprolol tartrate, start GDMT per cardiology. ESRD (end stage renal disease) (CMS/HCC) ([facility]) Assessment & Plan -Renal consulted, s/p CRRT [...] aspirin, Plavix and atorvastatin. Luiz Lewis DO [facility] Medicine * Tyra De La Torre MD - 06/22/2022 4:17 PM CDT CCU DAILY PROGRESS Patient: Adelia Garvin Jr. Room: [place] [address]/[place] [address] Date: 06/22/2022 Summary Statement: Adelia Garvin Jr. is a 51 y.o. male with a history of CHF (EF 50% 2016), Afib (not on AC), HTN, CAD s/p stent 04/06 and 3 stent 12/07, T1DM (insulin pump at home), ESRD on PD, HLD, GERD, hyperparathyroidism, DDD, OA, gout, BEN on CPAP initially presented to OSH for n/v and chest pain, transferred to [facility] for LHC/PCI, who presented to CCU [...] 06/22/2022 0500 Gross per 24 hour Intake 43518 ml Output 77098 ml Net -1759 ml Ventilator Settings: N/a [...] in anterior wall and anterior septem sugegsting CAD/VA in the LAD territory. 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 #Nutrition - continue tube feeds - WORLD GEOGRAPHY TEACHER eval - remove NGT and restart diet [...] HEME/ONC #Anemia Hgb 9.5 on admission to [facility] and 7.8 on arrival to CCU. [...] with the ICU team and other medical/oracle manufacturing consultant staff. * Tyra De La Torre MD - 06/21/2022 9:15 AM CDT CCU DAILY PROGRESS Patient: Adelia Garvin Jr. Room: [id number] Date: 06/21/2022 Summary Statement: Adelia Garvin Jr. is a 51 y.o. male with a history of CHF (EF 50% 2016), Afib (not on AC), HTN, CAD s/p stent 04/06 and 3 stent 12/07, T1DM (insulin pump at home), ESRD on PD, HLD, GERD, hyperparathyroidism, DDD, OA, gout, BEN on CPAP initially presented to OSH for n/v and chest pain, transferred to [facility] for LHC/PCI, who presented to CCU [...] in anterior wall and anterior septem sugegsting CAD/VA in the LAD territory. 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 #Nutrition - continue tube feeds - WORLD GEOGRAPHY TEACHER eval - remove NGT and restart diet [...] held iso diarrhea; transition to PO pending [facility] - glargine 33U, humalog 6U q4h + SSI - if TF: humalog to 8u q4h - if PO: transition short-acting to humalog 4u post-meal - continue to adjust regimen as patient transitions from TF to oral intake HEME/ONC #Anemia Hgb 9.5 on admission to [facility] and 7.8 on arrival to CCU. [...] with the ICU team and other medical/oracle manufacturing consultant staff. * Jess Redmond, PT - 06/21/2022 7:55 AM CDT Physical Therapy 06/21/22 0482 General PT Missed Visit Reason Bedrest Recommendation/Plan [...] DAILY PROGRESS Patient: Adelia Garvin Jr. Room: [place] [id number]/[id number] Date: 06/20/2022 Summary Statement: Adelia Garvin Jr. is a 51 y.o. male with a history of CHF (EF 50% 2016), Afib (not on AC), HTN, CAD s/p stent 04/06 and 3 stent 12/07, T1DM (insulin pump at home), ESRD on PD, HLD, GERD, hyperparathyroidism, DDD, OA, gout, BEN on CPAP initially presented to OSH for n/v and chest pain, transferred to [facility] for LHC/PCI, who presented to CCU [...] gtt - continue amio gtt 0.5 - WORLD GEOGRAPHY TEACHER eval for possible removal of NGT - [...] in anterior wall and anterior septem sugegsting CAD/VA in the LAD territory. 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 [...] A/C was because he started plavix and landscaping specialist decided to stop Eliquis. DIAGNOSTIC REVIEW [...] with the ICU team and other medical/oracle manufacturing consultant staff. * Bobby Mary MD - [...] 93% I/O last 2 completed shifts: In: 52892.4 [I.V.:1014.4; Other:18027; NG/GT:190; IV Piggyback:420] Out: 50665 [Other:26055] I/O this shift: In: 480.2 [I.V.:480.2] Out: [...] DAILY PROGRESS Patient: Adelia Garvin Jr. Room: [id number] Date: 06/19/2022 Summary Statement: Adelia Garvin Jr. is a 51 y.o. male with a history of CHF (EF 50% 2016), Afib (not on AC), HTN, CAD s/p stent 04/06 and 3 stent 12/07, T1DM (insulin pump at home), ESRD on PD, HLD, GERD, hyperparathyroidism, DDD, OA, gout, BEN on CPAP initially presented to OSH for n/v and chest pain, transferred to [facility] for LHC/PCI, who presented to CCU [...] 06/19/2022 0500 Gross per 24 hour Intake 42152.7 ml Output 84762 ml Net -2782.3 ml Ventilator Settings: 20/500/80/12 [...] in anterior wall and anterior septem sugegsting CAD/VA in the LAD territory. 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 [...] with the ICU team and other medical/oracle manufacturing consultant staff. * Jeffrey Green MD - 06/18/2022 6:17 AM CDT CCU DAILY PROGRESS Patient: Adelia Garvin Room: [id number] Date: 06/18/2022 Summary Statement: Adelia Garvin Jr. is a 51 y.o. male with a history of CHF (EF 50% 2016), Afib (not on AC), HTN, CAD s/p stent 04/06 and 3 stent 12/07, T1DM (insulin pump at home), ESRD on PD, HLD, GERD, hyperparathyroidism, DDD, OA, gout, BEN on CPAP initially presented to OSH for n/v and chest pain, transferred to [facility] for LHC/PCI, who presented to CCU [...] 06/18/2022 0500 Gross per 24 hour Intake 97580.41 ml Output 75849 ml Net 897.41 ml Ventilator Settings: 20/500/80/12 [...] in anterior wall and anterior septem sugegsting CAD/VA in the LAD territory. 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 [...] with the ICU team and other medical/oracle manufacturing consultant staff. * Jeffrey Green MD - 06/17/2022 6:39 AM CDT CCU DAILY PROGRESS Patient: Adelia Garvin Jr. Room: [id number] Date: 06/17/2022 Summary Statement: Adelia Garvin Jr. is a 51 y.o. male with a history of CHF (EF 50% 2016), Afib (not on AC), HTN, CAD s/p stent 04/06 and 3 stent 12/07, T1DM (insulin pump at home), ESRD on PD, HLD, GERD, hyperparathyroidism, DDD, OA, gout, BEN on CPAP initially presented to OSH for n/v and chest pain, transferred to [facility] for LHC/PCI, who presented to CCU [...] 0-1.5 mcg/kg/hr, Last Rate: 0.7 mcg/kg/hr (06/17/22 6131) insulin regular, 0-30 Units/hr, Last Rate: 4.5 Units/hr (06/17/22 8032) And dextrose 5%, 40 mL/hr peritoneal fluid with or without additives for CCPD, peritoneal fluid with or without additives for CCPD, peritoneal fluid with or without additives for CCPD, peritoneal fluid with or without additives for CCPD, fentaNYL, 0-400 mcg/hr, Last Rate: 200 mcg/hr (06/16/22 6656) heparin, 0-33 Units/kg/hr, Last Rate: 10.5 Units/kg/hr [...] in anterior wall and anterior septem sugegsting CAD/VA in the LAD territory. 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 [...] with the ICU team and other medical/oracle manufacturing consultant staff. * Tyra De La Torre MD - 06/16/2022 5:49 AM CDT CCU DAILY PROGRESS Patient: Adelia Garvin Jr. Room: [place] [id number]/[id number] Date: 06/16/2022 Summary Statement: Adelia Garvin Jr. is a 51 y.o. male with a history of CHF (EF 50% 2016), Afib (not on AC), HTN, CAD s/p stent 04/06 and 3 stent 12/07, T1DM (insulin pump at home), ESRD on PD, HLD, GERD, hyperparathyroidism, DDD, OA, gout, BEN on CPAP initially presented to OSH for n/v and chest pain, transferred to [facility] for LHC/PCI, who presented to CCU [...] in anterior wall and anterior septem sugegsting CAD/VA in the LAD territory. 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 [...] with the ICU team and other medical/oracle manufacturing consultant staff. * Zoila Sainz - 06/15/2022 4:15 PM CDT 06/15/22 1614 PT Last Visit PT Missed Visit Reason Sedated (pt intubated/sedated) Recommendation/Plan PT Frequency Monitor status PT - Next Appointment 06/17/22 Cosigned by Faby Poole PT at 06/15/2022 4:45 PM CDT * Tyra De La Torre MD - 06/15/2022 5:23 AM CDT CCU DAILY PROGRESS Patient: Adelia Garvin Jr. Room: [id number] Date: 06/15/2022 Summary Statement: Adelia C Newcombe Jr. is a 51 y.o. male with a history of CHF (EF 50% 2016), Afib (not on AC), HTN, CAD s/p stent 04/06 and 3 stent 12/07, T1DM (insulin pump at home), ESRD on PD, HLD, GERD, hyperparathyroidism, DDD, OA, gout, BEN on CPAP initially presented to OSH for n/v and chest pain, transferred to [facility] for LHC/PCI, who presented to CCU [...] in anterior wall and anterior septem sugegsting CAD/VA in the LAD territory. 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 [...] with the ICU team and other medical/oracle manufacturing consultant staff. * Lavern Morrison MD - 06/14/2022 4:39 PM CDT CCU DAILY PROGRESS Patient: Adelia Garvin Jr. Room: [id number] Date: 06/14/2022 Summary Statement: Adelia Garvin Jr. is a 51 y.o. male with a history of CHF (EF 50% 2016), Afib (not on AC), HTN, CAD s/p stent 04/06 and 3 stent 12/07, T1DM (insulin pump at home), ESRD on PD, HLD, GERD, hyperparathyroidism, DDD, OA, gout, BEN on CPAP initially presented to OSH for n/v and chest pain, transferred to [facility] for LHC/PCI, who presented to CCU [...] in anterior wall and anterior septem sugegsting CAD/VA in the LAD territory. 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 [...] MD to make comment on patient risk/complexity. Lavenr Morrison MD Resident Physician, Internal Medicine Cosigned [...] with the ICU team and other medical/oracle manufacturing consultant staff. * Payam Johnson, MULTIMEDIA DESIGNER - 06/14/2022 11:56 AM CDT 06/14/22 1135 [...] DAILY PROGRESS Patient: Adelia Garvin Jr. Room: [id number] Date: 06/13/2022 Summary Statement: Adelia Garvin Jr. is a 51 y.o. male with a history of CHF (EF 50% 2016), Afib (not on AC), HTN, CAD s/p stent 04/06 and 3 stent 12/07, T1DM (insulin pump at home), ESRD on PD, HLD, GERD, hyperparathyroidism, DDD, OA, gout, BEN on CPAP initially presented to OSH for n/v and chest pain, transferred to [facility] for LHC/PCI, who presented to CCU [...] in anterior wall and anterior septem sugegsting CAD/VA in the LAD territory. 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 [...] with the ICU team and other medical/oracle manufacturing consultant staff. * Olga Bernstein, PT - 06/13/2022 9:14 AM CDT Physical Therapy 06/13/22 0913 General PT Missed Visit Reason Bedrest;Sedated (impella, CVVHD) Recommendation/Plan PT Frequency Monitor status PT - Next Appointment 06/15/22 * Jeffrey Green MD - 06/12/2022 4:58 AM CDT CCU DAILY PROGRESS Patient: Adelia Garvin Jr. Room: [place] [id number] Date: 06/12/2022 Summary Statement: Adelia Garvin Jr. is a 51 y.o. male with a history of CHF (EF 50% 2016), Afib (not on AC), HTN, CAD s/p stent 04/06 and 3 stent 12/07, T1DM (insulin pump at home), ESRD on PD, HLD, GERD, hyperparathyroidism, DDD, OA, gout, BEN on CPAP initially presented to OSH for n/v and chest pain, transferred to [facility] for LHC/PCI, who presented to CCU [...] in anterior wall and anterior septem sugegsting CAD/VA in the LAD territory. 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 [...] with the ICU team and other medical/oracle manufacturing consultant staff. * Jeffrey Green MD - 06/11/2022 2:46 AM CDT CCU DAILY PROGRESS Patient: Adelia Garvin Jr. Room: [id number] Date: 06/11/2022 Summary Statement: Adelia Garvin Jr. is a 51 y.o. male with a history of CHF (EF 50% 2016), Afib (not on AC), HTN, CAD s/p stent 04/06 and 3 stent 12/07, T1DM (insulin pump at home), ESRD on PD, HLD, GERD, hyperparathyroidism, DDD, OA, gout, BEN on CPAP initially presented to OSH for n/v and chest pain, transferred to [facility] for LHC/PCI, who presented to CCU s/p complex PCI with impella and intubated. SUBJECTIVE Overnight: - Impella removed -Neches removed -Veletri weaned off -Tube feeds started [...] in anterior wall and anterior septem sugegsting CAD/VA in the LAD territory. 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 [...] with the ICU team and other medical/oracle manufacturing consultant staff. * Tyra De La Torre MD - 06/10/2022 12:46 PM CDT CCU DAILY PROGRESS Patient: Adelia Garvin Jr. Room: [facility] CARDIAC CATH ROOM/NO* Date: 06/10/2022 Summary [...] for n/v and chest pain, transferred to [facility] for LHC/PCI, who presented to CCU [...] in anterior wall and anterior septem sugegsting CAD/VA in the LAD territory. 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 [...] Resident Physician, Internal Medicine Cosigned by Eric Rede MD at 06/10/2022 1:52 PM CDT Associated [...] with the ICU team and other medical/oracle manufacturing consultant staff. * Lavern Morrison MD - 06/09/2022 6:31 AM CDT CCU DAILY PROGRESS Patient: Adelia Garvin Jr. Room: [id number] Date: 06/09/2022 Summary Statement: Adelia Garvin Jr. is a 51 y.o. male with a history of CHF (EF 50% 2017), Afib (not on AC), HTN, CAD s/p stent 04/06 and 3 stent 12/07, T1DM (insulin pump at home), ESRD on PD, HLD, GERD, hyperparathyroidism, DDD, OA, gout, BEN on CPAP initially presented to OSH for n/v and chest pain, transferred to [facility] for LHC/PCI, who presented to CCU [...] in anterior wall and anterior septem sugegsting CAD/VA in the LAD territory. 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 [...] MD Resident Physician, Internal Medicine Cosigned by Atrium HealthEric MD at 06/09/2022 1:13 PM CDT Associated [...] with the ICU team and other medical/oracle manufacturing consultant staff. * Roberto Carlos Newberry PT - 06/08/2022 3:00 PM CDT Physical Therapy 06/08/22 1500 General PT Missed Visit Reason Sedated;Other (comment) (pt intubated, sedated, primaflex CVVHD.) * Marcelina Pickard NP - 06/08/2022 7:58 AM CDT PROCEDURE: [facility] w/ complex PCI and Impella CP placement [...] statin therapy. Follow up appt with primary landscaping specialist, Dr Petit in 2-4 weeks post discharge. LOIDA Dos Santos Interventional Cardiology Nurse Practitioner [phone] Please refer to Cardiovascular [facility] Blood [...] DAILY PROGRESS Patient: Adelia Garvin Jr. Room: [id number] Date: 06/08/2022 Summary Statement: Adelia Garvin Jr. is a 51 y.o. male with a history of CHF (EF 50% 2016), Afib (not on AC), HTN, CAD s/p stent 04/06 and 3 stent 12/07, T1DM (insulin pump at home), ESRD on PD, HLD, GERD, hyperparathyroidism, DDD, OA, gout, BEN on CPAP initially presented to OSH for n/v and chest pain, transferred to [facility] for LHC/PCI, who presented to CCU [...] 06/08/2022 0500 Gross per 24 hour Intake 46282.23 ml Output 00256 ml Net -328.77 ml Ventilator Settings: 20/500/80/12 [...] gout, BEN on CPAP initially presented to [facility] for n/v and chest pain, transferred to [facility] for LHC/PCI, who presented to the [...] 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 [...] with the ICU team and other medical/oracle manufacturing consultant staff. * Jess Redmond, PT - 06/07/2022 11:48 AM CDT Physical Therapy 06/07/22 1148 General PT Missed Visit Reason Procedure/testing/appointment ([employer] Professional) * Conrad Akers MD - 06/07/2022 9:32 AM CDT MICU Attending Daily Note Name: Adelia Garvin Jr. Bed: [id number] : 1970 Age: 51 y.o. male Admit: [...] pre-medications for contrast allergy in anticipation of [facility] today. Scheduled Meds:amLODIPine, 10 mg, oral, Daily [...] 06/07/2022 0800 Gross per 24 hour Intake 48495.7 ml Output 44651 ml Net -1579.3 ml 24hr Min/Max: Temp [...] with the ICU team and other medical/oracle manufacturing consultant staff. Conrad Akers MD Pulmonary/Critical Care * Girish Kirk MD - 06/07/2022 7:56 AM CDT [facility] Acute and Critical Care Surgery [...] 81 mg, 81 mg, oral, Daily, Dewey Prara MD, 81 mg at 06/06/22 0820 atorvastatin [...] Is&Os: I/O last 2 completed shifts: In: 21180.3 [P.O.:780; I.V.:444.3; Other:78547; IV Piggyback:100] Out: 19651 [Other:26975] No intake/output data recorded. Physical Exam: BP [...] evaluation. The pelvis is excluded from the [id number] and unavailable for interpretation. 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 is a C/F CHOLECYSTITIS 51M w/PMHB CHF (EF 50% 2016), Afib (not on AC), HTN, CAD s/p stent 04/06 and 3 stent 12/07, T1DM (insulin pump at home), ESRD on PD, HLD, GERD, hyperparathyroidism, DDD, OA, gout, BEN on CPAP [facility], n/v, diarrhea, and chest pain, transferredto [facility] on 06/05 for LHC/PCI scheduled for 06/06. Pt was found to have an NSTEMI at OSH and was continued on hep gtt, asa81, plavix at [facility]. He was transferred to MICU after [...] GB pathology - Serial abdominal exams - [facility] will continue to follow The care plan above has been or will be discussed with attending physician. Any changes will be communicated to the primary team. Please contact the [facility] Inpatient Consult Service at the number listed below with any questions or concerns regarding the surgical management of this patient. Girish Kirk MD Resident Physician General Surgery [facility] ED Consult [facility] Inpatient Consult [facility] Outpatient Clinic - option 1 Cosigned by Modesta Gamez MD at 06/07/2022 9:33 PM CDT Associated attestation - Modesta Gamez MD - 06/07/2022 9:33 PM CDT I agree with the findings and plan of care as documented in the resident's/fellow's note. 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 Later chart reviewrevealed a [...] MD Instructor, Acute and Critical Care Surgery [facility] [employer] * Amira Davenport RN - 06/06/2022 12:04 PM CDT CM Initial Assessment Interview Note Information Obtained From: Patient (06/06/22 1156) Admission Source: from [facility] Impression: Hx - CHF, Afib, HTN, [...] (name, phone, availablity): Brother Jude Gallardo - [phone] Home Care Services: No Durable Medical Equipment: [...] Collaboration with patient, MD, direct care nurse, Purchasing Contracting Clerk, and other members of the health care team to assure needed interventions completed. 2. Return patient to optimal level of self-care post discharge. 3. Test Automation Architect will follow for Discharge Planning - interventions [...] Daily Note Name: Adelia Garvin Jr. Bed: [id number] : 1970 Age: 51 y.o. male Admit: [...] 06/06/2022 0900 Gross per 24 hour Intake 47607.47 ml Output 68251 ml Net -2112.53 ml 24hr Min/Max: Temp [...] EKG/Min 73 BPM Atrial Rate 73 BPM NM-Interval (MSEC) 184 ms QRS-Interval (MSEC) 106 ms QT-Interval (MSEC) 442 ms QTc 486 ms P [place] 49 degrees R [place] -33 degrees T [place] 87 degrees Diagnosis Normal sinus rhythm Possible [...] Magnesium 2.1 1.4 - 2.5 mg/dL POCT NN-N-UOJ-GLU-HCT, WB - ISTAT Collection Time: 06/05/22 3:22 [...] findings include: Troponin peak at 4800 NT-proBNP 13546 CXR with bilateral fluffy opacities RUQ US [...] control Wean O2 as tolerated, currently on [place] Hypertensive urgency/emergency With associated flash pulmonary edema [...] with the ICU team and other medical/oracle manufacturing consultant staff. Conrad Akers MD Pulmonary/Critical Care [...] REMOVE PERC ARTERIAL VAD (IMPELLA), DIFFERENT SESSION [id number] Cosigned by Champ Osborne MD PhD at 06/10/2022 10:55 AM CDT Source Note - Jeffrey Green MD - 06/07/2022 2:03 PM CDT . CCU ADMISSION HISTORY AND PHYSICAL Patient: Adelia Garvin Jr. Room: [facility] CARDIAC CATH ROOM/NO* Date: 06/07/2022 SUBJECTIVE [...] gout, BEN on CPAP initially presented to [facility] for n/v and chest pain, transferred to [facility] for LHC/PCI, now presenting to CCU s/p complex PCI with impella and intubated. At the OSH he presented with 3d generalized weakness, chills, ROONEY, n/v, chest pain relieved by sublingual ntg. His labs were notable for trop 1.0-->1.09-->0.729, BNP 23072. He had a CT CAP showing cholelithiasis [...] circumflex as optimal treatment, prompting transfer to [facility]. He arrived at [place] 06/05. EKG showed sinus bradycardia, 1st deg [...] Diabetes mellitus type I (HCC) Dialysis patient ([facility] ([facility]) ESRD on dialysis ([facility]) ([facility]) GERD (gastroesophageal reflux disease) Hyperlipidemia Hypertension [...] 06/07/2022 1100 Gross per 24 hour Intake 08672.04 ml Output 12503 ml Net -1701.96 ml REVIEW OF LABORATORY [...] gout, BEN on CPAP initially presented to [facility] for n/v and chest pain, transferred to [facility] for LHC/PCI, now presenting to CCU [...] 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 At the OSH he presented with 3d generalized weakness, chills, ROONEY, n/v, chest pain relieved by sublingual ntg. His labs were notable for trop 1.0-->1.09-->0.729, BNP 70141. He had a CT CAP showing cholelithiasis [...] circumflex as optimal treatment, prompting transfer to [facility]. He arrived at [facility] 06/05. EKG showed sinus bradycardia, 1st deg [...] Diabetes mellitus type I (HCC) Dialysis patient ([facility]) (HCC) ESRD on dialysis ([facility]) ([facility]) GERD (gastroesophageal reflux disease) Hyperlipidemia Hypertension [...] 06/07/2022 1100 Gross per 24 hour Intake 89932.04 ml Output 73023 ml Net -1701.96 ml REVIEW OF LABORATORY [...] gout, BEN on CPAP initially presented to [facility] for n/v and chest pain, transferred to [facility] for LHC/PCI, now presenting to CCU [...] 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 [place]-Liv catheter reviewed that shows adequate cardiac output [...] with the ICU team and other medical/oracle manufacturing consultant staff. * Marcelina Pickard NP - 06/07/2022 10:26 AM CDT I have reviewed the H&P, examined the patient, and endorse the findings as written. Plan of Care : Based on the above findings, I consider Adelia Garvin Jr. to be an acceptable risk for : Procedure(s): PCI MARIELLA MAJOR CORONARY C9600 - 94737 Cosigned by Champ Osborne MD PhD at [...] gout, BEN on CPAP initially presented to [facility] for generalized weakness, n/v, diarrhea, and chest pain, transferred to [facility] for LHC/PCI scheduled for 06/06, and presenting to the MICU after he was placed on NIPPV during an ACT for hypoxic respiratory failure. At OSH, pt presented w 3d of generalized weakness, loss of appetite, chills, ROONEY, n/v/d, and intermittent chest pain relieved by sublingual ntg. Labs at OSH notable for WBC 6.1, hgb 10.2, plt 206, trop I 1.0->1.09->0.729, BNP 88224. CTAP cholelithiasis w mild gallbladder distension, airspace [...] doneat tertiary center. Pt was transferred to [facility] floor overnight. Labs notable for Na [...] (coronary artery disease) Chest pain Diabetes mellitus ([facility]) Diabetes mellitus type I ([facility]) Dialysis patient ([facility]) ESRD on dialysis ([facility]) GERD (gastroesophageal reflux disease) Hyperlipidemia Hypertension [...] 0659 06/05/22 0700 - 06/06/22 0659 Shift 4788-6650 7530-3376 24 Hour Total 6753-0025 7895-1136 24 Hour Total INTAKE P.O. 60 60 Other 50262 50261 Shift Total(mL/kg) 70001(83.5) 75523(83.5) OUTPUT Urine 0 0 Other 66398 84235 Stool 0 0 Shift Total(mL/kg) 28174(87.7) 19828(87.7) NET -603 -603 Weight (kg) 142 142 [...] Magnesium 2.1 1.4 - 2.5 mg/dL POCT RT-A-LTZ-GLU-HCT, WB - ISTAT Collection Time: 06/05/22 3:22 [...] to OSH with NSTEMI, CAP, transferred to [facility] for LHC/PCI scheduled for 06/06, andpresenting [...] gout, BEN on CPAP initially presented to [facility] for generalized weakness, n/v, diarrhea, and chest pain, transferred to [facility] for LHC/PCI scheduled for 06/06, and presenting to the MICU after he was placed on NIPPV during an ACT for hypoxic respiratory failure. At OSH, pt presented w 3d of generalized weakness, loss of appetite, chills, ROONEY, n/v/d, and intermittent chest pain relieved by sublingual ntg. Labs at OSH notable for WBC 6.1, hgb 10.2, plt 206, trop I 1.0->1.09->0.729, BNP 68669. CTAP cholelithiasis w mild gallbladder distension, airspace [...] doneat tertiary center. Pt was transferred to [facility] floor overnight. Labs notable for Na [...] (coronary artery disease) Chest pain Diabetes mellitus ([facility]) Diabetes mellitus type I ([facility] Dialysis patient ([facility]) ESRD on dialysis ([facility]) GERD (gastroesophageal reflux disease) Hyperlipidemia Hypertension [...] 0659 06/05/22 0700 - 06/06/22 0659 Shift 5585-1094 1750-2589 24 Hour Total 8811-4395 5237-4631 24 Hour Total INTAKE P.O. 60 60 Other 80301 38011 Shift Total(mL/kg) 24919(83.5) 65331(83.5) OUTPUT Urine 0 0 Other 92929 51480 Stool 0 0 Shift Total(mL/kg) 39268(87.7) 23540(87.7) NET -603 -603 Weight (kg) 142 142 [...] Magnesium 2.1 1.4 - 2.5 mg/dL POCT SQ-J-DSM-GLU-HCT, WB - ISTAT Collection Time: 06/05/22 3:22 [...] to OSH with NSTEMI, CAP, transferred to [facility] for LHC/PCI scheduled for 06/06, andpresenting [...] with the ICU team and other medical/oracle manufacturing consultant staff. * Russ Milner MD - [...] gout, BEN on CPAP initially presented to [facility] for generalized weakness, n/v, diarrhea, and chest pain now being transferred for LHC/PCI 06/06. Patient initially presented with generalized weakness for the last 3 days. He then began to endorsen/v and diarrhea as well as chest pain which waxes and wanes and improves with sublingual ntg. He also reported decreased appetite, chills, dyspnea with exertion, and nonproductive cough. Patient follows with [facility] for cardiology. He did have angiogram in 2020 which showed patent stents in RCA and PDA, previously jailed posterolateral occluded and 50% stenosis in branch of OM1. Initial labs on 06/02 significant for Na 136, K 3, Cr 5.90, WBC 6.1, Hgb 10.2, Plt 206, tbili 1.3, AST 29, ALT 33, Alk Phos 105, Lipase 65, troponin I 1.0->1.09->0.729, BNP 18814. Covid, influenza negative. CXR showed left basilar [...] (coronary artery disease), Chest pain, Diabetes mellitus ([facility]), Diabetes mellitus type I ([facility]), Dialysis patient ([facility]), ESRD on dialysis ([facility]),GERD (gastroesophageal reflux disease), Hyperlipidemia, Hypertension, Sleep apnea, [...] gout, BEN on CPAP initially presented to [facility] for generalized weakness, n/v, diarrhea, andchest pain now being transferred for LHC/PCI 06/06. #CHF #CAD s/p PCI 03/2017 (RCA) and 3 stent 12/07 (prox, mid, and distal RCA) OSH txf for LHC/PCI w Dr. Osborne 06/06 at 10:30am. [facility]. He did have angiogram in 2020 which showed patent stents in RCA and PDA, previouslyjailed posterolateral occluded and 50% stenosis in branch of OM1. Endorsing chest pain iso n/v/diarrhea/ROONEY. Elevated troponin I 1.0->1.09->0.729, BNP 43550. EKG with sinus rhythm with left anterior [...] white count, elevated troponin I 1.0->1.09->0.729, BNP 99782, lipase 65. Covid, influenza negative. CXR showed [...] 24h UF 1074 ml Won Navarro MD court worker Division of Nephrology NEPHROLOGY PROCEDURE NOTE Date [...] 116.1 kg (255 lb 15.3 oz) Height: MULTIMEDIA DESIGNER vascular access: PD catheter Other findings: Date 06/25/22699 - 06/26/22 0659 06/26/22 07 - 06/27/22 0659 Shift 4720-7182 2282-6253 24 Hour Total 0559-6628 8968-3613 24 Hour Total INTAKE P.O. 360 360 Other 47858 12626 Shift Total(mL/kg) 360(3) 51065(105.7) 48650(108.8) OUTPUT Urine(mL/kg/hr) 100(0.1) 100(0) 300 300 Other 58253 96547 Shift Total(mL/kg) 100(0.8) 18051(119) 57954(119.9) 300(2.6) 300(2.6) NET 447 -4734 -9742 -300 -300 Weight (kg) 119.7 116.1 116.1 [...] FERRITIN 2,062 (H) 06/07/[address] worker Nephrology Division TROLLEY AND TAXI INSTRUCTOR * Aleida Lambert, WORLD GEOGRAPHY TEACHER - 06/21/2022 2:02 PM CDTAssociated Order(s): WORLD GEOGRAPHY TEACHER EVALUATE AND TREAT VIDEOFLUOROSCOPIC SWALLOW STUDY Speech-Language [...] reported General Information Adelia Garvin Jr. 06/21/22 WORLD GEOGRAPHY TEACHER Received On: 06/21/22 General Observations: presents alert, [...] Administered: Thin liquids (via spoon & straw), [place] thickened liquids (via spoon & straw), Purees, Honey thickened liquids via spoon, Solids. Patient took large sips requiring more than 1 swallow even when cued for small sip. Administered consistencies contain barium product. Thin Liquids: Laryngeal Penetration: Present Aspiration Present: No Penetration Aspiration Scale-Thin: 4-Material enters the airway, contacts the vocal folds and is ejected from the airway [place] Thickened Liquids: Laryngeal Penetration: Present Aspiration Present: No Penetration Aspiration Scale-[place]: 2-Material enters the airway, remains above the [...] treatment goals and details, if indicated. Plan WORLD GEOGRAPHY TEACHER Frequency of Services: 2-3x/wk WORLD GEOGRAPHY TEACHER Recommendation (Add'l Services): Inpatient Rehab Facility Next [...] Feeding Status: no dysphagia reported General Information Aedlia Garvin Jr. 06/21/22 General Observations: presents alert, [...] National Outcomes Measurement System: (pending MBS) Plan WORLD GEOGRAPHY TEACHER Frequency of Services: Pending instrumental assessment Further [...] Poe MD Authorized by: Aj Poe MD [place] Protocol: RN Notified of Procedure: yes Informed consent: Patient/operations representative/guardian agrees and accepts and risks, benefits, [...] Brody, the patient's brother. Aj Poe MD Paleology Professor, PGY-5 Cosigned by Rufino Flores MD at 06/20/2022 9:33 AM CDT * Lavern Morrison MD - 06/07/2022 10:17 PM CDTAssociated Order(s): Arterial Line Insertion Post-Procedure Diagnose(s): Hypotension, unspecified hypotension type Arterial Line Insertion Date/Time: 06/07/2022 10:17 PM Performed by: Lavern Morrison MD Authorized by: Lavern Morrison MD [place] Protocol: RN Notified of Procedure: yes Informed [...] 1970 Date of Service: 06/23/22 Requesting Attending: Carye East* Reason for Consult: Other: NSTEMI HPI [...] for n/v and chest pain, transferred to [facility] for LHC/PCI, who presented to CCU s/p complex PCI with impella and intubated. Now extubated, tolerating PO intake, on home PD. Arrived at [facility] from OSH on 06/05. EKG showed sinus [...] Diabetes mellitus type I (HCC), Dialysis patient ([facility]) (HCC), ESRD on dialysis ([facility]) (HCC), GERD (gastroesophageal reflux disease), Hyperlipidemia, Hypertension, [...] 06/23/2022 1747 Gross per 24 hour Intake 01387 ml Output 56042 ml Net -2325 ml Physical Exam: General: [...] ESRD on PD who was transferred to [facility] for an impella-supported complex PCI on [...] 5PM or on weekends, please page the water softener servicer application tester with any questions or concerns. Will Villavicencio MD Paleology Professor 5:59 PM 06/23/22 Cosigned by Musa Fernando MD at 06/23/2022 7:53 PM CDT Associated attestation - Musa Fernando MD - 06/23/2022 7:53 PM CDT 06/23/2022 I have personally seen and examined this pt with resident/Fellow/COMMUNICATION SPECIALIST . I have reviewed History/Physical exam and plan for management. I agree with it . Musa Fernando M.D., F.A.C.C. hooker inspector [facility] [employer] [facility]. [place] This note contains [...] about verbage above please contact me at [phone]. . * Mckenzie Phelan, GAVIN - 06/15/2022 [...] gout, BEN on CPAP initially presented to [facility] for generalized weakness, n/v, diarrhea, and chest pain now being transferred for LHC/PCI 06/06. Objective Past Medical History: Diagnosis Date CAD (coronary artery disease) Chest pain Diabetes mellitus (HCC) Diabetes mellitus type I (HCC) Dialysis patient ([facility]) (HCC) ESRD on dialysis ([facility]) (HCC) GERD (gastroesophageal reflux disease) Hyperlipidemia [...] of Weight Used for Estimated Protein : [place] Protein Needs Based on g/k.7 Total Protein [...] Evaluation: TF tolerance Mckenzie Phelan RDN LD [phone] * Sandrine Myers MD - 06/15/2022 10:42 [...] Pulmonary will continue to follow. Please call application tester pulmonary consult fellow with additional questions or [...] gout, BEN on CPAP initially presented to [facility] for generalized weakness, n/v, diarrhea, and chest pain now being transferred for LHC/PCI 06/06. Objective Past Medical History: Diagnosis Date CAD (coronary artery disease) Chest pain Diabetes mellitus (HCC) Diabetes mellitus type I (HCC) Dialysis patient ([facility]) (HCC) ESRD on dialysis ([facility]) (HCC) GERD (gastroesophageal reflux disease) Hyperlipidemia [...] of Weight Used for Estimated Protein : [place] Protein Needs Based on g/k.5 Total Protein [...] Monitoring and Evaluation: TF tolerance ADAMA Tejada Insulation Helper RD number [phone] * Ronny Vasquez - 06/10/2022 2:21 PM [...] gout, BEN on CPAP initially presented to [facility] for generalized weakness, n/v, diarrhea, and chest pain now being transferred for LHC/PCI 06/06. Objective Past Medical History: Diagnosis Date CAD (coronary artery disease) Chest pain Diabetes mellitus (HCC) Diabetes mellitus type I (HCC) Dialysis patient ([facility]) (HCC) ESRD on dialysis ([facility]) (HCC) GERD (gastroesophageal reflux disease) Hyperlipidemia [...] TF tolerance Ronny Vasquez MS, RDN LD Insulation Helper RD number [phone] * Patricio Pearce MD - 06/09/2022 1:10 [...] failure. Briefly, the patient was transferred to [facility] for complex PCI for NSTEMI on 06/04. He was initially on the medicine floor then went into flash pulmonary edema in setting of hypertension and NSTEMI and was transferred to the MICU for NPPV. CXR showed significant pulmonary edema. Labs notable for BNP 91006, trops 4000. He was also found to [...] dilated RV with normal RV systolic function. [place] numbers from earlier today indicat PA 36/17, [...] Diabetes mellitus type I (HCC) Dialysis patient ([facility]) (HCC) ESRD on dialysis ([facility]) (HCC) GERD (gastroesophageal reflux disease) Hyperlipidemia [...] CDTAssociated Order(s): IP CONSULT TO GENERAL SURGERY [facility] Acute Care Surgery Consult Note Requesting Consult: Conrad Akers MD Reason for Consult: cholecystitis Assessment: 51M w/PMHB CHF (EF 50% 2016), Afib (not on AC), HTN, CAD s/p stent 04/06 and 3 stent 12/07, T1DM (insulin pump at home), ESRD on PD, HLD, GERD, hyperparathyroidism, DDD, OA, gout, BEN on CPAP [facility] generalized weakness, n/v, diarrhea, and chest pain, transferredto [facility] on 06/05 for LHC/PCI scheduled for 06/06. Pt was found to have an NSTEMI at OSH and was continued on hep gtt, asa81, plavix at [facility]. He was transferred to MICU after [...] discussed with attending Dr. Gamez. Please contact [facility] Inpatient Consults at with any questions or [...] OA, gout, BEN on CPAP initiallypresented [facility] for generalized weakness, n/v, diarrhea, and chest pain, transferredto [facility] on 06/05 for LHC/PCI scheduled for 06/06. Pt was found to have an NSTEMI at OSH and was continued on hep gtt, asa81, plavix at [facility]. He was transferred to MICU after [...] (coronary artery disease) Chest pain Diabetes mellitus ([facility]) Diabetes mellitus type I ([facility]/HCC) Dialysis patient ([facility]) ESRD on dialysis ([facility]) GERD (gastroesophageal reflux disease) Hyperlipidemia Hypertension [...] evaluation. The pelvis is excluded from the [id number]-fy-dzyp and unavailable for interpretation. A rounded density [...] only and have not been reviewed by [facility] Radiology. There will be no report generated by a [facility] Radiologist. XR Outside Reference Result Date: 06/05/2022 These images are for Reference purposes only and have not been reviewed by [facility] Radiology. There will be no report generated by a [facility] Radiologist. US RUQ Result Date: [...] only and have not been reviewed by [facility] Radiology. There will be no report generated by a [facility] Radiologist. IR Outside Reference Result Date: 06/05/2022 These images are for Reference purposes only and have not been reviewed by [facility] Radiology. There will be no report generated by a [facility] Radiologist. Assessment/Plan: Please see top of note. Cosigned by Modesta Gamez MD at 06/07/2022 9:34 PM CDT Associated attestation - Modesta Gamez MD - 06/07/2022 9:34 PM CDT I have seen and examined the patient on 06/06/2022. I agree with the findings and plan of care as documented in the resident's/fellow's note. Nona Gamez MD Instructor, Acute and Critical Care Surgery [facility] [employer] ' * Hortencia Slade MD - 06/05/2022 2:37 PM CDTAssociated Order(s): CONSULT TO ENDOCRINOLOGY DIABETES Endocrinology & Diabetes Consult Note Patient: Adelia Garvin Jr., 51 y.o. male (: 1970) Room: [place] [address] ( ) LOS: 1 Consult Question: T1DM [...] (coronary artery disease), Chest pain, Diabetes mellitus ([facility]), Diabetes mellitus type I ([facility]), Dialysis patient ([facility]), ESRD on dialysis ([facility]), GERD (gastroesophageal reflux disease), Hyperlipidemia, Hypertension, [...] is 44.91 kg/m??. I/O this shift: In: 72134 [P.O.:60; Other:64195] Out: 39951 [Other:32977] Physical Exam Gen : no acute distress, [...] labs, imaging, and diagnostics independently reviewed in [facility] and commented on below. Lab Results Component Value Date TSH 0.80 03/21/2017 Lab Results Component Value Date CHOL 149 06/04/2022 TRIG 165 (H) 06/04/2022 HDL 34 (L) 06/04/2022 LDLCALC 82 06/04/2022 Lab Results Component Value Date 25HYDROVITD 22.7 (L) 03/22/2017 Lab Results Component Value Date HGBA1C 7.4 (H) 03/21/2017 Assessment & Plan 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, with shelter use of insulin, complicated by ESRD on [...] ## Discharge Planning - Follow-up with home telescope repairer Discussed with Dr. Huynh and primary team [...] Date: 2019 Dialysis Days: nightly Dialysis Center: [place], [place] Dialysis Medicine: Dialysis Prescription: CCPD - [...] No rash or lesions on visible skin MICROWAVE RADIO TECHNICIAN: Alert Ox3. No focal motor deficits, no [...] cell count and diff. Vonnie Cody MD court worker documented in this encounter Nursing Notes * Tequila Ingram RN - 06/28/2022 8:08 PM CST 9 hour CCPD treatment started as ordered. PD catheter site is clear and free of drainage. PD site was cleansed and gentamicin cream applied at entrance. Covered with gauze dressing. Treatment setup aseptically per protocol. TROLLEY AND TAXI INSTRUCTOR * Pj Duckworth RN - 06/28/2022 6:15 AM CST 06/28/22 0600 Vitals BP 124/62 Temp 36.7 ??C (98.1 ??F) Temp src Oral Pulse 70 Resp 16 SpO2 98 % Weight 120.3 kg (265 lb 3.4 oz) Peritoneal Dialysis Dialysis Type CCPD Peritoneal Dialysis Setup Completed by forwarder operatorreceiver dispatcher Status End Cycle Number 4 Machine Type Loaded Pocket Pro Machine # [id number] Initial Drain Volume (mL) 312 mL Last Fill Volume (mL) 999 mL Fill Volume In (mL) 68838 mL Effluent Volume Out (mL) 07050 ml Effluent Appearance Clear;Yellow Balance This Exchange (mL) 1788 mL Peritoneal Dialysis Catheter Continuous cycling No placement date or time found. Placed by External Staff?: Other (Comment) Dialysis Type: Continuous cycling Status Deaccessed;Clamped Dressing Gauze Dressing Status Clean, dry, intact TROLLEY AND TAXI INSTRUCTOR * Pj Duckworth RN - 06/27/2022 8:21 PM CST Started CCPD. Target treatment time is 9 hours. TROLLEY AND TAXI INSTRUCTOR * Pj Duckworth RN - 06/27/2022 6:24 AM CST 06/27/22 0600 Peritoneal Dialysis Dialysis Type CCPD Peritoneal Dialysis Setup Completed by forwarder operatorreceiver dispatcher Status End Cycle Number 4 Machine Type [employer]Choice Pro Machine # [id number] Initial Drain Volume (mL) 690 mL Last Fill Volume (mL) 785 mL Fill Volume In (mL) 87349 mL Effluent Volume Out (mL) 44275 ml Effluent Appearance Clear;Yellow Balance This Exchange (mL) 1944 mL Peritoneal Dialysis Catheter Continuous cycling No placement date or time found. Placed by External Staff?: Other (Comment) Dialysis Type: Continuous cycling Status Deaccessed;Clamped Dressing Gauze Dressing Status Clean, dry, intact TROLLEY AND TAXI INSTRUCTOR * Pj Duckworth RN - 06/26/2022 7:52 PM CST Started CCPD. Target treatment time is 9 hours. TROLLEY AND TAXI INSTRUCTOR * Pj Duckworth RN - 06/25/2022 8:41 PM CDT Started CCPD. Target treatment time is 9 hours. * Pj Duckworth RN - 06/25/2022 6:09 AM CDT 06/25/22 0600 Peritoneal Dialysis Dialysis Type CCPD Peritoneal Dialysis Setup Completed by forwarder operatorreceiver dispatcher Status End Cycle Number 4 Machine Type [employer] Pro Machine # [id number] Initial Drain Volume (mL) 423 mL Last Fill Volume (mL) 999 mL Fill Volume In (mL) 18519 mL Effluent Volume Out (mL) 58130 ml Effluent Appearance Clear;Yellow Balance This Exchange [...] at 150 ml/hr. 4K/2.5Ca dialysate fluid used. FINANCE LEAD has no questions or concerns at this time, contact number left at bedside. * Mell Daniel RN - 06/19/2022 10:01 AM CDT CVVHDF reset. Prismaflex #12 used. Warmer set at 40.5 using toney tubing through RIJ catheter. All pressures within normal limits. UF rate at 200 ml/hr. 4K/2.5Ca dialysate fluid used. FINANCE LEAD has no questions or concerns at this [...] Type CCPD Peritoneal Dialysis Setup Completed by forwarder operatorreceiver dispatcher Status End Initial Drain Volume (mL) 429 [...] Change Due 06/19/22 Site Assessment Clean and dry;Kamas * Jaja Mojica RN - 06/17/2022 12:43 PM CDT CCPD initiated per protocol and per order. Aury, FINANCE LEAD notified and contact phone number left atthe bedside. * Jaja Mojica RN - 06/17/2022 12:21 PM CDT Pt's CCPD tx ended per protocol. Last fill of 0mL, total UF of 1213 clear, yellow, non odorous effluent. Aury, FINANCE LEAD notified. Setting up next CCPD ordered to [...] without redness or drainage. Skin cleaned with Kamas Secura skin cleanser, dried, then a thin [...] Blood flow and pressures WNL. Spoke to FINANCE LEADLUAN Ramos, she has no questions or concerns [...] on venous line. Blood flow and pressures WNL.assembler rubber footwear has no questions or concerns at present [...] 06/07/2022 7:32 PM CDT [place] [id number] at 1637 and all initial hookups made. [...] degrees with alexander cord on return line. FINANCE LEAD has no questions or concerns at this [...] orders entered earlier [place]. [place] [address] ml over 4Cycles of 2800 ml each [...] gout, BEN on CPAP initially presented to [facility] for generalized weakness, n/v, diarrhea, and [...] started to prevent him from going to [facility]: CCM - #DKA - resolved In CCU, [...] part of the patient???s medical record. Sincerely, [facility] TROLLEY AND TAXI INSTRUCTOR * Consults, Subsequent - Dora Delarosa COMMUNICATION SPECIALIST - 06/29/2022 12:55 PM BUS [employer]LEY [employer] TAXI INSTRUCTOR Endocrinology & Diabetes Progress Note Patient: Adelia Garvin Jr., 51 y.o. male (: 1970) Room: [place] [id number] ( ) LOS: 25 Adelia Garvin Jr. [...] agitation. 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, with shelter use of insulin, complicated by ESRD on PD, CAD s/p PCI, CHF - HbA1c 7.4% - Uses Omnipod and Dexcom G6 at home, not currently on this- doesn't have the supplies -On significantly higher basal rates on pump at night due to peritoneal dialysis -home settings: Basal rate 0330 >>1.7 0800 >> 0.8 2000 >> 5.8 ICR1:6.5 ISF1:25 BVE259 TIA 4 Over the previous 24 hours, [...] recommend increasing the basal insulin dose from 5036-7119 today. We will continue to intensely monitor [...] ## Discharge Planning - Follow-up with home telescope repairer -- Dora Delarosa NP Endocrinology, Metabolism, & Lipid Research Contact Info: New Consults: [phone]) General Endocrine (Non-Diabetes): [phone] (Check 'Treatment Team' assignment for Diabetes 1 vs 2 vs 3) Diabetes 1: Diabetes Fellow: [phone] Diabetes 2: Dora Delarosa COMMUNICATION SPECIALIST: [phone] Diabetes 3: See Treatment Team Provider (or call Dora Delarosa, above) Diabetes After-Hours & Weekends: Diabetes Fellow TROLLEY [employer] TAXI INSTRUCTOR * Plan of Care - Elsie Gonzalez RN - 06/29/2022 11:32 AM CST [facility] [id number] Post Acute Care Transfer Report Adelia Garvin Jr. , : 1970, Sex: M Adm: 06/04/2022, D/C: Post Acute Care Transfer Report Patient Demographics Address [address] [address] (Home) *Preferred* E-mail Address [email or web address] PCP and Center Primary Care Provider Aditya Castro MD [facility] Parent Location Code Status Information Code [...] Type 2 diabetes mellitus treated with insulin ([facility]) (HCC) (Chronic) Chronic 03/25/2015 - Present 03/25/2015 by Yamilet Valerio PA Entered by Yamilet Valerio PA Overview Signed 11/25/2016 5:29 AM by Yamilet Valerio PA Insulin treated Type II diabetes mellitus Chronic kidney disease, stage III (moderate) ([facility]) (Chronic) Chronic 03/25/2015 - Present 03/25/2015 byYamilet [...] Valerio PA Hyperlipidemia 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 ([facility]) (HCC) 05/23/2017 - Present 06/22/2022 by Luiz Lewis DO Entered by Abelardo Petit MD History of coronary artery stent placement 05/23/2017 - Present 05/23/2017 by Abelardo Petit MD Entered by Abelardo Petit MD Hypertension (Chronic) Chronic 01/18/2013 - Present 11/22/2013 by Intf Conv, Tw Problems Entered by Prot-Onf Conv, Tw Problems Type 1 diabetes mellitus [...] Robbins Added automatically from request for surgery [id number] DELETED: Angina pectoris (HCC) 06/04/2022 - Present [...] MD Added automatically from request for surgery [id number] Anemia 06/22/2022 - Present 06/29/2022 by Frank Bowers MD Entered by Luiz Lewis DO All Assessment & Plan Notes ESRD (end stage renal disease) ([facility]) ([facility]) 06/22/2022 - Present 06/29/2022 by Frank Bowers MD Entered by Luiz Lewis DO All Assessment & Plan Notes Acute on chronic HFrEF (heart failure with reduced ejection fraction) ([facility]) 06/22/2022 - Present 06/29/2022 by Frank Bowers MD Entered by Luiz Lewis DO All Assessment & Plan Notes Atrial fibrillation ([facility]) ([facility]) 06/22/2022 - Present 06/29/2022 by Frank Bowers MD Entered by Luiz Lewis DO All Assessment & Plan Notes Principal NSTEMI (non-ST elevated myocardial infarction) ([facility]) ([facility]) 06/22/2022 - Present 06/29/2022 by Frank Bowers MD Entered by Luiz Lewis DO All Assessment & Plan Notes Cardiogenic shock ([facility]) 06/22/2022 - Present 06/29/2022 by Frank Bowers [...] ...filed at 06/04/2022 2300 Patient Language and Congregational Flowsheet Row Most Recent Value Patient's Preferred [...] 06/29/22 0700 - 06/30/22 0659 Total Total 6476-9641 3551-6758 6885-1443 Total 0411-2824 2739-4623 5066-6260 Total Intake (ml) 19663 50641 400 360 86356 12490 360 -- -- 360 Output (ml) 76786 11320 150 -- 51802 21388 -- -- -- -- Net (ml) -1709 [...] as: PriLOSEC acetaminophen (TYLENOL) tablet 1,000 mg [[id number]] Ordering Provider: Luiz Lewis DO Status: Dispensed Ordered On: 06/22/221923 Start: 06/22/221929 Ordered Dose (Remaining/Total): 1,000 mg (--/--) Route: oral Frequency: Every 6 hours PRN Ordered Rate/Order Duration: -- / -- Timestamps Action Dose Route Other Information Performed 06/27/221746 Documented: 06/27/221746 Given 1,000 mg oral Performed by: Manda Lake RN Scanned Package: 55201-188-32, 71786-862-59 acetaminophen (TYLENOL) tablet 325 mg [[id number]] Ordering Provider: Meme Castro MD Status: Completed (Past End Date/Time) Ordered On: 06/15/22 1014 Starts/Ends: 06/15/22 1045 - 06/15/22 0945 Ordered Dose (Remaining/Total): 325 mg (0/1) Route: oral Frequency: Once Ordered Rate/Order Duration: -- / -- Timestamps Action Dose Route Other Information Performed 10/26/22 0945 Documented: 06/15/22 1104 Given 325 mg oral Performed by: Ravi Hollingsworth RN Scanned Package: [address]-1 albuterol HFA (PROVENTIL HFA,VENTOLIN HFA,PROAIR HFA) 90 mcg/actuation inhaler 2 puff [[id number]] Ordering Provider: Fernando Torres MD Status: Dispensed Ordered On: 06/05/22244 Start: 06/05/22228 Ordered Dose (Remaining/Total): 2 puff (--/--) Route: inhalation Frequency: Every 6 hours PRN (certified respiratory therapist) Ordered Rate/Order Duration: -- / -- Timestamps Action Dose Route Other Information Performed 06/15/22249 Documented: 06/15/22252 Given 2 puff inhalation Performed by: Juanito Hernandez RRT Scanned Package: 6780-0698-67 alteplase (CATHFLO) 1 mg/mL syringe (premix) 1 mg [[id number]] Ordering Provider: Lavern Morrison MD Status: Completed (Past End Date/Time) Ordered On: 06/09/22409 Starts/Ends: 06/09/22444 - 06/09/22447 Ordered Dose (Remaining/Total): 1 mg (0/1) Route: intra-catheter Frequency: Once Ordered Rate/Order Duration: -- / -- Admin Instructions: 60 to 120 minute dwell time. Refrigerate Timestamps Action Dose Route Other Information Performed 06/09/22447 Documented: 06/09/22447 Given 1 mg intra-catheter Performed by: Rachel Masters, LUAN Scanned Package: 6921-1924-48 alteplase (CATHFLO) 1 mg/mL syringe (premix) 1 mg [[id number]] Ordering Provider: Robert Henry MD Status: Completed [...] Performed by: Manda Pickett RN Scanned Package: 0326-5103-82 alteplase (CATHFLO) 1 mg/mL syringe (premix) 2 mg [[id number]] Ordering Provider: Robert Henry MD Status: Completed (Past End Date/Time) Ordered On: 06/11/221655 Starts/Ends: 06/11/221729 - 06/11/221809 Ordered Dose (Remaining/Total): 2 mg (0/1) Route: intra-catheter Frequency: Once Ordered Rate/Order Duration: -- / -- Admin Instructions: 60 to 120 minute dwell time. Refrigerate Timestamps Action Dose Route Other Information Performed 06/11/221809 Documented: 06/11/221809 Given 2 mg intra-catheter Performed by: Manda Pickett RN Scanned Package: 2369-4082-74, 3649-8131-52 alteplase (CATHFLO) 1 mg/mL syringe (premix) 2 mg [[id number]] Ordering Provider: Robert Henry MD Status: Completed (Past End Date/Time) Ordered On: 06/11/221655 Starts/Ends: 06/11/221729 - 06/11/221810 Ordered Dose (Remaining/Total): 2 mg (0/1) Route: intra-catheter Frequency: Once Ordered Rate/Order Duration: -- / -- Admin Instructions: 60 to 120 minute dwell time. Refrigerate Timestamps Action Dose Route Other Information Performed 06/11/221810 Documented: 06/11/221810 Given 2 mg intra-catheter Performed by: Manda Pickett RN Scanned Package: 6710-4068-00, 2773-7693-80 amiodarone (NEXTERONE) 150 mg/100 mL (1.5 mg/mL) in dextrose (premix) 150 mg [[id number]] Ordering Provider: Jeffrey Green MD Status: Completed [...] (1.5 mg/mL) in dextrose (premix) 150 mg [[id number]] Ordering Provider: Lavern Morrison MD Status: Completed [...] Performed by: Carlos Esparza RN Scanned Package: 36776-139-66 amiodarone (NEXTERONE) 150 mg/100 mL (1.5 mg/mL) in dextrose (premix) 150 mg [[id number]] Ordering Provider: Lavern Morrison MD Status: Completed [...] Performed by: Carlos Esparza RN Scanned Package: 50010-611-55 amiodarone (NEXTERONE) 150 mg/100 mL (1.5 mg/mL) in dextrose (premix) 150 mg [[id number]] Ordering Provider: Tyra De La Torre MD [...] Escobar RN aspirin chewable tablet 81 mg [[id number]] Ordering Provider: Marcelina Pickard NP Status: Completed (Past End Date/Time) Ordered On: 06/07/22 1112 Starts/Ends: 06/07/22 1145 - 06/07/22 1137 Ordered Dose (Remaining/Total): 81 mg (0/1) Route: oral Frequency: Once Ordered Rate/Order Duration: -- / -- Timestamps Action Dose Route Other Information Performed 06/07/22 1137 Documented: 06/07/22 1138 Given 81 mg oral Performed by: Carolyn Troncoso RN Scanned Package: 4434-8551-75 aspirin chewable tablet 81 mg [[id number]] Ordering Provider: Luiz Lewis DO Status: Dispensed Ordered On: 06/22/22 1924 Start: 06/23/22 0900 Ordered Dose (Remaining/Total): 81 mg (--/--) Route: oral Frequency: Daily Ordered Rate/Order Duration: -- / -- Timestamps Action Dose Route Other Information Performed 06/29/22 0823 Documented: 06/29/22 0824 Given 81 mg oral Performed by: Manda Lake RN Scanned Package: 2185-1278-34 atorvastatin (LIPITOR) tablet 80 mg [[id number]] Ordering Provider: Luiz Lewis DO Status: Dispensed Ordered On: 06/22/221923 Start: 06/23/22899 Ordered Dose (Remaining/Total): 80 mg (--/--) Route: oral Frequency: Daily Ordered Rate/Order Duration: -- / -- Timestamps Action Dose Route Other Information Performed 06/29/22822 Documented: 06/29/22823 Given 80 mg oral Performed by: Manda Lake RN Scanned Package: [address]-9 azithromycin (ZITHROMAX) tablet 500 mg [[id number]] Ordering Provider: Russ Milner MD Status: Completed (Past End Date/Time) Ordered On: 06/05/22244 Starts/Ends: 06/05/22 09 - 06/05/22 0849 Ordered Dose (Remaining/Total): 500 mg (0/1) Route: oral Frequency: Once Ordered Rate/Order Duration: -- / -- Timestamps Action Dose Route Other Information Performed 06/05/22848 Documented: 06/05/22 0850 Given 500 mg oral Performed by: Nona Fernandez RN Scanned Package: [address]-4, [address]-4 barium sulfate (VARIBAR NECTAR) 40 % (w/v) nectar [[id number]] Ordering Provider: Tyra De La Torre MD [...] PUDDING) 40 % (w/v), 30% (w/w) pudding [[id number]] Ordering Provider: yTra De La Torre MD Status: Completed (Past End Date/Time) Ordered On: 06/21/221416 Starts/Ends: 06/21/221408 - 06/21/221408 Ordered Dose (Remaining/Total): -- (01) Route: oral Frequency: Once in imaging Ordered Rate/Order Duration: -- / -- Timestamps Action Dose Route Other Information Performed 06/21/221408 Documented: 06/21/221427 Contrast Given 10 mL oral Performed by: Carey Vallejo RT barium sulfate (VARIBAR THIN LIQUID) 81 % (w/w) thin liquid [[id number]] Ordering Provider: Tyra D eLa Torre MD Status: Completed (Past End Date/Time) Ordered On: 06/21/221416 Starts/Ends: 06/21/221406 - 06/21/221406 Ordered Dose (Remaining/Total): -- (01) Route: oral Frequency: Once in imaging Ordered Rate/Order Duration: -- / -- Timestamps Action Dose Route Other Information Performed 06/21/221406 Documented: 06/21/221426 Contrast Given 60 mL oral Performed by: Carey Vallejo RT barium sulfate (VARIBAR) 40 % (w/v) 29% (w/w) suspension 250 mL [[id number]] Ordering Provider: Tyra De La Torre MD [...] ml given calcitRIOL (ROCALTROL) capsule 0.25 mcg [[id number]] Ordering Provider: Tyra De La Torre MD Status: Dispensed Ordered On: 06/22/22921 Start: 06/22/22 1000 Ordered Dose (Remaining/Total): 0.25 mcg (--/--) Route: oral Frequency: Daily Ordered Rate/Order Duration: -- / -- Timestamps Action Dose Route Other Information Performed 06/29/22822 Documented: 06/29/22823 Given 0.25 mcg oral Performed by: Manda Lake RN Scanned Package: 77275-877-07 calcium acetate(phosphat bind) (PHOSLO) capsule 667 mg [[id number]] Ordering Provider: Fernando Torres MD Status: Dispensed Ordered On: 06/05/22244 Start: 06/05/22799 Ordered Dose (Remaining/Total): 667 mg (--/--) Route: oral Frequency: 4 times daily Ordered Rate/Order Duration: -- / -- Admin Instructions: Take with food Timestamps Action Dose Route Other Information Performed 06/29/22822 Documented: 06/29/22823 Given 667 mg oral Performed by: Manda Lake RN Scanned Package: 97575-766-41 calcium carbonate (TUMS) chewable tablet 500 mg [[id number]] Ordering Provider: Earl Samuels MD Status: Completed (Past End Date/Time) Ordered On: 06/24/222111 Starts/Ends: 06/24/222144 - 06/24/222137 Ordered Dose (Remaining/Total): 200 mg of elemental calcium (0/1) Route: oral Frequency: Once Ordered Rate/Order Duration: -- / -- Timestamps Action Dose Route Other Information Performed 06/24/222137 Documented: 06/24/222137 Given 500 mg oral Performed by: Sasha Subramanian RN Scanned Package: 2817-3191-00 clopidogreL (PLAVIX) tablet 600 mg [[id number]] Ordering Provider: Finn Dupont MD Status: Completed (Past End Date/Time) Ordered On: 06/07/22806 Starts/Ends: 06/07/22844 - 06/07/22956 Ordered Dose (Remaining/Total): 600 mg (0/1) Route: oral Frequency: Once Ordered Rate/Order Duration: -- / -- Timestamps Action Dose Route Other Information Performed 06/07/22956 Documented: 06/07/22957 Given 600 mg oral Performed by: Caitlyn Guzman, LUAN Scanned Package: 71617-595-56, 51306-069-61 clopidogreL (PLAVIX) tablet 75 mg [[id number]] Ordering Provider: Luiz Lewis DO Status: Dispensed Ordered On: 06/22/221923 Start: 06/23/22 0900 Ordered Dose (Remaining/Total): 75 mg (--/--) Route: oral Frequency: Daily Ordered Rate/Order Duration: -- / -- Timestamps Action Dose Route Other Information Performed 06/29/22822 Documented: 06/29/22823 Given 75 mg oral Performed by: Manda Lake RN Scanned Package: 1298-5713-10 Dianeal low calcium-dextrose 1.5 % 2,000 mL dialysis solution [[id number]] Ordering Provider: James Horvath MD Status: Dispensed [...] calcium-dextrose 2.5 % 2,000 mL dialysis solution [[id number]] Ordering Provider: Tom Mendez MD Status: Dispensed [...] calcium-dextrose 2.5 % 5,000 mL dialysis solution [[id number]] Ordering Provider: Yovanny Curtis MD Status: Dispensed [...] calcium-dextrose 2.5 % 5,000 mL dialysis solution [[id number]] Ordering Provider: Yovanny Curtis MD Status: Dispensed [...] calcium-dextrose 2.5 % 5,000 mL dialysis solution [[id number]] Ordering Provider: Tom Mendez MD Status: Dispensed [...] calcium-dextrose 2.5 % 5,000 mL dialysis solution [[id number]] Ordering Provider: Tom Mendez MD Status: Dispensed [...] Duckworth, LUAN diphenhydrAMINE (BENADRYL) capsule 50 mg [[id number]] Ordering Provider: Veronica Tavares MD Status: Completed [...] oral Performed by: Caitlyn Guzman RN 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 Scanned Package: 0588-8792-12 Extraneal 7.5% ULTRABAG 2,000 mL dialysis solution [[id number]] Ordering Provider: Tom Mendez MD Status: Dispensed (Past End Date/Time) Ordered On: 06/26/22 130 Starts/Ends: 06/26/221344 - 06/27/221936 Ordered Dose (Remaining/Total): -- (--/--) Route: intraperitoneal Frequency: Continuous Ordered Rate/Order Duration: -- / -- Timestamps Action Dose / Rate / Duration Route Other Information Performed 06/26/221937 Documented: 06/26/221937 New Bag -- intraperitoneal Performed by: Pj Duckworth, LUAN ezetimibe (ZETIA) tablet 10 mg [[id number]] Ordering Provider: Luiz Lewis DO Status: Dispensed Ordered On: 06/22/22 1924 Start: 06/23/22 0900 Ordered Dose (Remaining/Total): 10 mg (--/--) Route: oral Frequency: Daily Ordered Rate/Order Duration: -- / -- Timestamps Action Dose Route Other Information Performed 06/29/22 08 Documented: 06/29/22 08 Given 10 mg oral Performed by: Manda Lake RN Scanned Package: 65941-137-85 furosemide (LASIX) 10 mg/mL injection 120 mg [[id number]] Ordering Provider: Dimitrios Hensley MD Status: Completed [...] Performed by: Nona Fernandez RN Scanned Package: 4485-2484-22, 6044-6636-77 gentamicin (GARAMYCIN) 0.1 % cream [[id number]] Ordering Provider: James Horvath MD Status: Dispensed [...] Performed by: Tequila Ingram RN Scanned Package: 92817-077-29 heparin 1,000 unit/mL injection 1.5-6.9 mL [[id number]] Ordering Provider: James Horvath MD Status: Completed (Past End Date/Time) Ordered On: 06/20/224 Starts/Ends: 06/20/22 1300 - 06/20/221232 Ordered Dose (Remaining/Total): 1.5-6.9 mL (0/1) Route: intra-catheter Frequency: Once Ordered Rate/Order Duration: -- / -- Admin Instructions: Indwell volume of catheter lumens post treatment. Give volume based upon scorer helper's recommendation (usual range 1.2 - 3 mL) in each lumen. Timestamps Action Dose Route Other Information Performed 06/20/221232 Documented: 06/20/221232 Given 3 mL intra-catheter Performed by: Margaret Escobar RN Scanned Package: 5800-9211-73 heparin 1,000 unit/mL injection 4,000 Units [[id number]] Ordering Provider: Russ Milner MD Status: Completed [...] Signoff by: Ayleen Doan RN Scanned Package: 6096-3294-46 heparin 5,000 unit/mL injection 5,000 Units [[id number]] Ordering Provider: Robert Henry MD Status: Dispensed Ordered On: 06/22/22 1107 Start: 06/22/22 1400 Ordered Dose (Remaining/Total): 5,000 Units (--/--) Route: subcutaneous Frequency: Every 8 hours scheduled Ordered Rate/Order Duration: -- / -- Timestamps Action Dose Route / Site Other Information Performed 06/29/22500 Documented: 06/29/22 050 Given 5,000 Units subcutaneous Left Lower Abdomen Performed by: Radha Paul RN Scanned Package: 94573-699-07 heparin in 0.9% sodium chloride 25,000 unit/250 mL infusion (premix) [[id number]] Ordering Provider: Champ Osborne MD PhD Status: Completed (Past End Date/Time) Ordered On: 06/07/221430 Frequency: Continuous PRN Timestamps Action Dose / Rate Route / Site / Linked Line Other Information Performed 06/07/221429 Documented: 06/07/221430 New Bag 14 Units/kg/hr 19.88 mL/hr -- Performed by: Stephanie Bacon RN influenza quadrivalent 7797-2201 (FLULAVAL,FLUARIX,FLUZONE) 60 mcg (15 mcg x 4)/0.5 mL vaccine (STANDARD age 6 months and up) 0.5 mL [[id number]] Ordering Provider: Champ Osborne MD PhD Status: Completed (Past End Date/Time) Ordered On: 06/04/222316 Starts/Ends: 06/04/222316 - 06/04/222335 Ordered Dose (Remaining/Total): 0.5 mL (0/1) Route: intramuscular Frequency: During hospitalization Ordered Rate/Order Duration: -- / -- Timestamps Action Dose Route / Site Other Information Performed 06/04/222335 Documented: 06/04/222337 Given 0.5 mL intramuscular Right Deltoid Performed by: Kristie Banegas RN Scanned Package: 55996-243-71 insulin lispro (HumaLOG, ADMELOG) 100 unit/mL injection 5 Units [[id number]] Ordering Provider: Lavern Morrison MD Status: Completed (Past End Date/Time) Ordered On: 06/22/22604 Starts/Ends: 06/22/22604 - 06/22/22621 Ordered Dose (Remaining/Total): 5 Units (0/1) Route: subcutaneous Frequency: Once Ordered Rate/Order Duration: -- / -- Timestamps Action Dose Route / Site Other Information Performed 06/22/22621 Documented: 06/22/22621 Given 5 Units subcutaneous Left Lower Abdomen Performed by: Annmarie Ayala, LUAN Scanned Package: 5986-4983-04 insulin lispro (HumaLOG, ADMELOG) 100 unit/mL injection 5 Units [[id number]] Ordering Provider: Indiana Irwin III, MD Status: Completed (Past End Date/Time) Ordered On: 06/24/22 014 Starts/Ends: 06/24/22214 - 06/24/22156 Ordered Dose (Remaining/Total): 5 Units (0/1) Route: subcutaneous Frequency: Once Ordered Rate/Order Duration: -- / -- Timestamps Action Dose Route / Site Other Information Performed 06/24/22156 Documented: 06/24/22157 Given 5 Units subcutaneous Right Upper Arm Performed by: Mell Wild RN Scanned Package: 5163-4468-92 insulin lispro (HumaLOG, ADMELOG) 100 unit/mL injection 2 Units [[id number]] Ordering Provider: Carey East MD Status: Completed [...] Performed by: Adelita Self RN Scanned Package: 7828-2685-11 insulin regular (HumuLIN R, NovoLIN R) 100 unit/mL injection 4 Units [[id number]] Ordering Provider: Payam Connor MD Status: Completed [...] Signoff by: Milagros Hinojosa RN Scanned Package: 4782-4087-13 insulin regular (HumuLIN R, NovoLIN R) 100 unit/mL injection 6 Units [[id number]] Ordering Provider: Toyin Alberto MD Status: Completed (Past End Date/Time) Ordered On: 06/05/221429 Starts/Ends: 06/05/221514 - 06/05/221433 Ordered Dose (Remaining/Total): 6 Units (0/1) Route: intravenous Frequency: Once Ordered Rate/Order Duration: -- / -- Timestamps Action Dose Route Other Information Performed 06/05/221433 Documented: 06/05/221433 Given 6 Units intravenous Performed by: Nona Fernandez RN Dual Signoff by: Jacob Luna RN Scanned Package: [id number] insulin regular (HumuLIN R, NovoLIN R) 100 unit/mL injection 5 Units [[id number]] Ordering Provider: Jeffrey Green MD Status: Completed (Past End Date/Time) Ordered On: 06/07/221746 Starts/Ends: 06/07/221829 - 06/07/221756 Ordered Dose (Remaining/Total): 5 Units (0/1) Route: intravenous Frequency: Once Ordered Rate/Order Duration: -- / -- Timestamps Action Dose Route Other Information Performed 06/07/221756 Documented: 06/07/221801 Given 5 Units intravenous Performed by: Figueroa Jack RN Dual Signoff by: Ravi Hollingsworth RN Scanned Package: 3147-5472-63 insulin regular (HumuLIN R, NovoLIN R) 100 unit/mL injection 7 Units [[id number]] Ordering Provider: Meme Castro MD Status: Completed [...] Signoff by: Rachel Masters RN Scanned Package: 3556-4403-62 insulin regular (HumuLIN R, NovoLIN R) 100 unit/mL injection 4 Units [[id number]] Ordering Provider: Jeffrey Green MD Status: Completed [...] Signoff by: Rachel Masters RN Scanned Package: [id number] INSULIN SUBCUTANEOUS PUMP (HUMALOG) 100 UNITS/ML INSULIN PUMP INFUSION (HumaLOG) patient supplied pump 0-25 Units [[id number]] Ordering Provider: Dora Delarosa NP Status: Verified [...] ER (IMDUR) extended release tablet 30 mg [[id number]] Ordering Provider: Carey East MD Status: Dispensed [...] Performed by: Manda Lake RN Scanned Package: [id number] lidocaine PF (XYLOCAINE) 10 mg/mL (1 %) preservative free injection [[id number]] Ordering Provider: Aric Cordova MD Status: Completed (Past End Date/Time) Ordered On: 06/18/22 123 Frequency: Code/trauma/sedation medication Timestamps Action Dose Route Other Information Performed 06/18/22 1231 Documented: 06/18/22 123 Given 10 mL Injection Performed by: Aric Cordova MD Documented by: Nick Delarosa, LUAN losartan (COZAAR) tablet 12.5 mg [[id number]] Ordering Provider: Carey East MD Status: Dispensed Ordered On: 06/24/22 171 Start: 06/25/22 09 Ordered Dose (Remaining/Total): 12.5 mg (--/--) Route: oral Frequency: Daily Ordered Rate/Order Duration: -- / -- Timestamps Action Dose Route Other Information Performed 06/29/22821 Documented: 06/29/22823 Given 12.5 mg oral Performed by: Manda Lake RN Scanned Package: 05504-998-91 magnesium sulfate 2 g/50 mL in water (premix) 2 g [[id number]] Ordering Provider: Jeffrey Green MD Status: Completed (Past End Date/Time) Ordered On: 06/18/221837 Starts/Ends: 06/18/221914 - 06/18/222024 Ordered Dose (Remaining/Total): 2 g (0/1) Route: intravenous Frequency: Once Ordered Rate/Order Duration: -- / 60 Minutes Timestamps Action Dose / Duration Route Other Information Performed 06/18/221924 Documented: 06/18/221924 New Bag 2 g 60 Minutes intravenous Performed by: Carlos Esparza RN Scanned Package: [id number] metoprolol tartrate (LOPRESSOR) immediate release tablet 25 mg [[id number]] Ordering Provider: Carey East MD Status: Dispensed Ordered On: 06/26/22 1551 Start: 06/27/22 0900 Ordered Dose (Remaining/Total): 25 mg (--/--) Route: oral Frequency: 2 times daily Ordered Rate/Order Duration: -- / -- Timestamps Action Dose Route Other Information Performed 06/29/22821 Documented: 06/29/22823 Given 25 mg oral Performed by: Manda Lake RN Scanned Package: 41660-224-82 midazolam (VERSED) 1 mg/mL injection 2 mg [[id number]] Ordering Provider: Lavern Morrison MD Status: Completed (Past End Date/Time) Ordered On: 06/15/221756 Starts/Ends: 06/15/221829 - 06/15/221804 Ordered Dose (Remaining/Total): 2 mg (0/1) Route: intravenous Frequency: Once Ordered Rate/Order Duration: -- / -- Timestamps Action Dose Route Other Information Performed 06/15/221804 Documented: 06/15/221805 Given 2 mg intravenous Performed by: Ravi Hollingsworth RN Scanned Package: 1259-5740-95 midazolam (VERSED) bolus from bag 2 mg [[id number]] Ordering Provider: Jeffrey Green MD Status: Completed (Past End Date/Time) Ordered On: 06/16/221719 Starts/Ends: 06/16/221799 - 06/16/221744 Ordered Dose (Remaining/Total): 2 mg (0/1) Route: intravenous Frequency: Once Ordered Rate/Order Duration: -- / -- Timestamps Action Dose Route Other Information Performed 06/16/221744 Documented: 06/16/221756 Bolus from Bag 2 mg intravenous Performed by: Ravi Hollingsworth RN pantoprazole DR (PROTONIX) extended release tablet 40 mg [[id number]] Ordering Provider: Carey East MD Status: Dispensed Ordered On: 06/25/221156 Start: 06/26/22 09 Ordered Dose (Remaining/Total): 40 mg (--/--) Route: oral Frequency: Daily Ordered Rate/Order Duration: -- / -- Admin Instructions: Do not crush, chew, cut, dissolve, open or otherwise manipulate tablet/capsule. Timestamps Action Dose Route Other Information Performed 06/29/22821 Documented: 06/29/22823 Given 40 mg oral Performed by: Manda Lake RN Scanned Package: 6876-4010-03 perflutren protein-a (OPTISON) 0.22 mg/mL injection - ADS Override Pull [[id number]] Status: Completed (Past End Date/Time) Ordered On: [...] in sodium chloride 0.9% 8 mL syringe [[id number]] Ordering Provider: Meme Castro MD Status: Completed [...] CLASSIC) 1.4-0.6 % ophthalmic solution 1 drop [[id number]] Ordering Provider: Jeffrey Green MD Status: Dispensed Ordered On: 06/16/221911 Start: 06/16/222099 Ordered Dose (Remaining/Total): 1 drop (--/--) Route: each eye Frequency: 4 times daily Ordered Rate/Order Duration: -- / -- Timestamps Action Dose Route Other Information Performed 06/29/22821 Documented: 06/29/22823 Given 1 drop each eye Performed by: Manda Lake RN Scanned Package: 1255-7185-72 potassium chloride (KLOR-CON) packet 40 mEq [[id number]] Ordering Provider: Meme Castro MD Status: Completed [...] Performed by: Rachel Masters RN Scanned Package: [address]-8, [address]-7 potassium chloride 40 mEq/100 mL in sterile water (premix) 40 mEq [[id number]] Ordering Provider: Ashley Baer MD Status: Completed [...] mL in sterile water (premix) 40 mEq [[id number]] Ordering Provider: Meme Castro MD Status: Dispensed [...] Performed by: Rachel Masters RN Scanned Package: 0771-0209-11 potassium chloride ER (KLOR-CON) extended release tablet 30 mEq [[id number]] Ordering Provider: Tyra De La Torre MD [...] Performed by: Carlos Esparza RN Scanned Package: 84216-045-26, 45523-467-57, 32881-898-71 potassium chloride ER (KLOR-CON) extended release tablet 20 mEq [[id number]] Ordering Provider: Carey East MD Status: Completed [...] Performed by: Manda Lake RN Scanned Package: 0197-9141-59, 7086-0610-52 predniSONE (DELTASONE) tablet 50 mg [[id number]] Ordering Provider: Veronica Tavares MD Status: Completed (Past End Date/Time) Ordered On: 06/06/22 1344 Starts/Ends: 06/07/22 0000 - 06/07/22 1018 Ordered Dose (Remaining/Total): 50 mg (0/3) Route: oral Frequency: Every 6 hours Ordered Rate/Order Duration: -- / -- Admin Instructions: Call Radiology to schedule procedure after the 1st dose is administered. 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 Scanned Package: 6562-9043-66 ramelteon (ROZEREM) tablet 8 mg [[id number]] Ordering Provider: Marcelina Pickard NP Status: Dispensed Ordered On: 06/08/22918 Start: 06/08/22918 Ordered Dose (Remaining/Total): 8 mg (--/--) Route: feeding tube Frequency: Nightly PRN Ordered Rate/Order Duration: -- / -- Timestamps Action Dose Route Other Information Performed 06/08/222040 Documented: 06/08/222040 Given 8 mg feeding tube Performed by: Rachel Masters RN Scanned Package: [address]-5 sodium bicarbonate 8.4 % (1 mEq/mL) injection 50 mEq [[id number]] Ordering Provider: Champ Osborne MD PhD Status: Completed (Past End Date/Time) Ordered On: 06/07/22 1348 Starts/Ends: 06/07/22 1430 - 06/07/22 133 Ordered Dose (Remaining/Total): 50 mEq (0/1) Route: intravenous Frequency: Once Ordered Rate/Order Duration: -- / -- Timestamps Action Dose Route Other Information Performed 06/07/221334 Documented: 06/07/22 1351 Given 50 mEq intravenous Performed by: Stephanie Bacon RN sodium chloride 0.9% IVPB 0-250 mL [[id number]] Ordering Provider: Meme Castro MD Status: Completed [...] Performed by: Carlos Esparza RN Scanned Package: 4746-9259-30 sodium chloride 0.9% IVPB 0-250 mL [[id number]] Ordering Provider: Robert Henry MD Status: Completed [...] Performed by: Margaret Escobar RN Scanned Package: 1203-9379-83 Rex Scale Flowsheet Row Most Recent Value [...] 06/23/2022129 Throat Intact ............filed at 06/23/2022129 Tongue Kamas, Moist ............filed at 06/23/2022129 Voice Deep ............filed at 06/22/2022 08 Mucous Membrane(s) Moist, Kamas ............filed at 06/22/2022 08 Teeth and Gums [...] last 72 hours COVID-19 Coronavirus RNA Nasopharyngeal [[id number]] Resulted: 06/28/22 1703, Result status: Final result Ordering provider: Frank Bowers MD 06/28/22 1517 Resulting lab: [facility] Narrative: Is the patient experiencing any symptoms consistent with COVID (eg. Fever, cough, shortness of breath)?->No What is the reason for testing?->Placement in post-acute care setting (Rapid) Interpretive data: Synonyms for this test include: PCR and NAAT . This test is performed using the [employer] Xpert Xpress plus assay. This is a [...] . This test is performed using the [employer] Xpert Xpress plus assay. This is a [...] COVID-19 RNA Negative Negative -- -- eGFR [[id number]] (Abnormal) Resulted: 06/27/22457, Result status: Final result Ordering provider: Carey East MD 06/27/22350 Resulting lab: [facility] Specimen Information Type Source Collected On Blood -- 06/27/22350 Components Component Value Reference Range Flag Lab eGFR 6 90 - 130 mL/min/1.73 m2 L Low -- Basic metabolic panel [[id number]] (Abnormal) Resulted: 06/27/22457, Result status: Final result Ordering provider: Carey East MD 06/26/22 1800 Resulting lab: [facility] Specimen Information Type Source Collected On [...] mg/dL L Low -- CBC without differential [[id number]] (Abnormal) Resulted: 06/27/22434, Result status: Final result Ordering provider: Carey East MD 06/26/22 1800 Resulting lab: [facility] Specimen Information Type Source Collected On [...] results found ECG/EMG Results ECG 12 lead [[id number]] Resulted: 06/23/22 1628, Result status: Final result Ordering provider: Carey East MD 06/23/22 1330 Resulted by: Hudson Sal Jr., MD PhD Accession number: [id number] Resulting lab: [facility] [employer]arnest Components Component Value Reference Range Flag Lab Ventricular Rate EKG/Min 100 BPM -- -- Atrial Rate 100 BPM -- -- NM-Interval (MSEC) 182 ms -- -- QRS-Interval (MSEC) 106 ms -- -- QT-Interval (MSEC) 380 ms -- -- QTc 490 ms -- -- R [place] -47 degrees -- -- T [place] 105 degrees -- -- Diagnosis -- -- [...] on 06/23/2022 4:28:23 PM ECG 12 lead [[id number]] Resulted: 06/23/22 1444, Result status: Preliminary result Ordering provider: Carey East MD 06/23/22 1330 Resulted by: Hudson Sal Jr., MD PhD Accession number: [id number] Resulting lab: [facility] [employer]rysm Component Value Reference Range Flag Lab Ventricular Rate EKG/Min 100 BPM -- -- Atrial Rate 100 BPM -- -- NM-Interval (MSEC) 182 ms -- -- QRS-Interval (MSEC) 106 ms -- -- QT-Interval (MSEC) 380 ms -- -- QTc 490 ms -- -- R [place] -47 degrees -- -- T [place] 105 degrees -- -- Diagnosis -- -- [...] depressed in Lateral leads ECG 12 lead [[id number]] Resulted: 06/22/22 1055, Result status: Final result Ordering provider: Fernando Torres MD 06/19/22 1255 Resulted by: Hudson Sal Jr., MD PhD Accession number: [id number] Resulting lab: [facility] Prysm Component Value Reference Range Flag Lab Ventricular Rate EKG/Min 126 BPM -- -- Atrial Rate 63 BPM -- -- QRS-Interval (MSEC) 106 ms -- -- QT-Interval (MSEC) 360 ms -- -- QTc 521 ms -- -- R [place] -53 degrees -- -- T [place] 125 degrees -- -- Diagnosis -- -- [...] on 06/22/2022 10:55:43 AM ECG 12 lead [[id number]] Resulted: 06/21/22 1328, Result status: Final result Ordering provider: Fernando Torres MD 06/18/22 1831 Resulted by: Kenn Billingsley MD Accession number: [id number] Resulting lab: [facility] Prysm Component Value Reference Range Flag Lab Ventricular Rate EKG/Min 133 BPM -- -- Atrial Rate 147 BPM -- -- QRS-Interval (MSEC) 102 ms -- -- QT-Interval (MSEC) 332 ms -- -- QTc 494 ms -- -- R [place] -43 degrees -- -- T [place] 123 degrees -- -- Diagnosis -- -- [...] on 06/21/2022 1:28:53 PM ECG 12 lead [[id number]] Resulted: 06/08/22 0942, Result status: Final result Ordering provider: Jeffrey Green MD 06/07/22 1647 Resulted by: Jess Bustos MD Accession number: [id number] Resulting lab: [facility] Prysm Component Value Reference Range Flag Lab Ventricular Rate EKG/Min 51 BPM -- -- Atrial Rate 51 BPM -- -- NM-Interval (MSEC) 212 ms -- -- QRS-Interval (MSEC) 130 ms -- -- QT-Interval (MSEC) 580 ms -- -- QTc 534 ms -- -- P [place] 69 degrees -- -- R [place] -38 degrees -- -- T [place] 95 degrees -- -- Diagnosis -- -- [...] on 06/08/2022 9:42:26 AM ECG 12 lead [[id number]] Resulted: 06/07/22 0830, Result status: Final result Ordering provider: Toyin Alberto MD 06/05/221447 Resulted by: Jess Bustos MD Accession number: [id number] Resulting lab: [facility] Prysm Component Value Reference Range Flag Lab Ventricular Rate EKG/Min 73 BPM -- -- Atrial Rate 73 BPM -- -- NM-Interval (MSEC) 184 ms -- -- QRS-Interval (MSEC) 106 ms -- -- QT-Interval (MSEC) 442 ms -- -- QTc 486 ms -- -- P [place] 49 degrees -- -- R [place] -33 degrees -- -- T [place] 87 degrees -- -- Diagnosis -- -- -- -- Result: Normal sinus rhythm Left axis deviation QS in V1 and V2, a nonspecific finding with multiple causes, including lead misplacement or septal infarction in 20% Abnormal ECG Confirmed by JESS BUSTOS M.D ([id number]) on 06/07/2022 8:30:06 AM ECG 12 lead [[id number]] Resulted: 06/07/22 0625, Result status: Preliminary result Ordering provider: Toyin Alberto MD 06/05/221447 Resulted by: Jess Bustos MD Accession number: [id number] Resulting lab: [facility] Prysm Component Value Reference Range Flag Lab Ventricular Rate EKG/Min 73 BPM -- -- Atrial Rate 73 BPM -- -- NM-Interval (MSEC) 184 ms -- -- QRS-Interval (MSEC) 106 ms -- -- QT-Interval (MSEC) 442 ms -- -- QTc 486 ms -- -- P [place] 49 degrees -- -- R [place] -33 degrees -- -- T [place] 87 degrees -- -- Diagnosis -- -- -- -- Result: Normal sinus rhythm Possible Left atrial enlargement Left axis deviation Septal infarct , age undetermined Abnormal ECG ECG 12 lead [[id number]] Resulted: 06/06/222156, Result status: Final result Ordering provider: Russ Milner MD 06/04/222154 Resulted by: Kenn Billingsley MD Accession number: [id number] Resulting lab: [facility] Prysm Component Value Reference Range Flag Lab Ventricular Rate EKG/Min 47 BPM -- -- Atrial Rate 47 BPM -- -- NM-Interval (MSEC) 228 ms -- -- QRS-Interval (MSEC) 116 ms -- -- QT-Interval (MSEC) 532 ms -- -- QTc 470 ms -- -- P [place] 39 degrees -- -- R [place] -33 degrees -- -- T [place] 105 degrees -- -- Diagnosis -- -- -- -- Result: Sinus bradycardia with 1st degree A-V block Left axis deviation Incomplete left bundle branch block Nonspecific ST and T wave abnormality Long QTc When compared with ECG of 23-MAR-2017 00:14, NM interval has increased QTc has increased Rate has decreased by 15 bpm Incomplete left bundle branch block is now Present Criteria for Septal infarct are not Present Confirmed by KENN BILLINGSLEY M.D ([id number]) on 06/06/2022 9:57:10 PM ECG 12 lead [[id number]] Resulted: 06/06/22943, Result status: Preliminary result Ordering provider: Russ Milner MD 06/04/222154 Resulted by: Kenn Billingsley MD Accession number: [id number] Resulting lab: [facility] Prysm Component Value Reference Range Flag Lab Ventricular Rate EKG/Min 47 BPM -- -- Atrial Rate 47 BPM -- -- NM-Interval (MSEC) 228 ms -- -- QRS-Interval (MSEC) 116 ms -- -- QT-Interval (MSEC) 532 ms -- -- QTc 470 ms -- -- P [place] 39 degrees -- -- R [place] -33 degrees -- -- T [place] 105 degrees -- -- Diagnosis -- -- -- -- Result: Sinus bradycardia with 1st degree A-V block Left axis deviation Incomplete left bundle branch block Abnormal QRS-T angle, consider primary T wave abnormality Abnormal ECG When compared with ECG of 23-MAR-2017 00:14, NM interval has increased Incomplete left bundle branch block is now Present Criteria for Septal infarct are no longer Present ECG 12 lead [[id number]] Resulted: 10/17/22 0932, Result status: Preliminary result Ordering provider: Toyin Alberto MD 06/05/22 1448 Resulted by: Jess Bustos MD Accession number: [id number] Resulting lab: [facility] [employer] Component Value Reference Range Flag Lab Ventricular Rate EKG/Min 73 BPM -- -- Atrial Rate 73 BPM -- -- NM-Interval (MSEC) 184 ms -- -- QRS-Interval (MSEC) 106 ms -- -- QT-Interval (MSEC) 442 ms -- -- QTc 486 ms -- -- P [place] 49 degrees -- -- R [place] -33 degrees -- -- T [place] 87 degrees -- -- Diagnosis -- -- -- -- Result: Normal sinus rhythm Possible Left atrial enlargement Left axis deviation Septal infarct , age undetermined Abnormal ECG ECG 12 lead [[id number]] Resulted: 06/06/22 0909, Result status: Preliminary result Ordering provider: Russ Milner MD 06/04/222154 Resulted by: Kenn Billingsley MD Accession number: [id number] Resulting lab: [facility] Prysm Component Value Reference Range Flag Lab Ventricular Rate EKG/Min 47 BPM -- -- Atrial Rate 47 BPM -- -- NM-Interval (MSEC) 228 ms -- -- QRS-Interval (MSEC) 116 ms -- -- QT-Interval (MSEC) 532 ms -- -- QTc 470 ms -- -- P [place] 39 degrees -- -- R [place] -33 degrees -- -- T [place] 105 degrees -- -- Diagnosis -- -- -- -- Result: Sinus bradycardia with 1st degree A-V block Left axis deviation Incomplete left bundle branch block Abnormal QRS-T angle, consider primary T wave abnormality Abnormal ECG When compared with ECG of 23-MAR-2017 00:14, NM interval has increased Incomplete left bundle branch block is now Present Criteria for Septal infarct are no longer Present Testing Performed By Lab - Abbreviation Name Director Address Valid Date Range 24 - [facility] Unknown 03/28/170 - Present Progress Notes - Encounter Notes Notes from 06/27/22 through 06/29/22 Progress Notes by So Lawrence OT at 06/27/2022 9:37 AM Version 1 of 1 Author: So Lawrence OT Specialty: Occupational Therapy Author Type: Occupational Therapist Filed: 06/27/2022 11:01 AM Date of Service: 06/27/2022 9:37 AM Status: Signed Tire Maintenance Technician: So Lawrence OT (Occupational Therapist) Occupational Therapy [...] not assigned to this patient, please call [phone]. 06/27/22 0937 General Session Type Treatment OT [...] of Service: 06/27/2022 4:57 PM Status: Signed Tire Maintenance Technician: Carey East MD (Physician) Daily Progress Note Division of Hospital Medicine Name: Adelia Garvin Jr. Today: June 27, 2022 : 1970 Age: 51 y.o. male Admit: 06/04/2022 Bed: [id number] Subjective Chief complaint: CAD s/p PCI, T1DM, [...] 06/27/2022 0745 Gross per 24 hour Intake 06709 ml Output 46898 ml Net -1949 ml Physical Exam Constitutional: [...] transferred to the floor, improving. Atrial fibrillation ([facility]) ([facility]) Assessment & Plan Converted to NSR overnight on 06/24. CHADsVASc of 4 not on anticoagulation prior to admission. - cardiology consulted - recommended ongoing rate control - holding off on a/c with high risk for bleeding while on DAPT - reduced metop to 25mg BID in the setting of hypotension, HR 70s NSR Acute on chronic HFrEF (heart failure with reduced ejection fraction) ([facility]) Assessment & Plan C/b cardiogenic shock requiring impella in the setting of cath and AHRF 2/2 pulmonary edema, now resolved. TTE demonstrating recovered EF 65% with grade I diastolic dysfunction. - metop as above - continue low dose losartan 12.5mg daily, ok per nephro - volume management per PD ESRD (end stage renal disease) ([facility] ([facility]) Assessment & Plan - Renal consulted, s/p CRRT in the ICU now back on PD. - Continue vitamins for renal bone mineral disease - continue phoslo Type 1 diabetes mellitus ([facility]) Assessment & Plan A1c well controlled on [...] PD * NSTEMI (non-ST elevated myocardial infarction) ([facility]) ([facility]) Assessment & Plan With recurrent chest pain [...] of Service: 06/27/2022 3:50 PM Status: Signed Tire Maintenance Technician: Arleen Andre MD (Physician) ASSESSMENT AND RECOMMENDATIONS ESRD: He is doing well on the current PD regimen. Ultrafilters approximately 1716-1672 ml/day. Continue current regimen Hypokalemia: Start Kcl [...] Type: Continuous Cycling Peritoneal Dialysis Machine Type: Reveal Data HomeChoice Pro Dianeal Solution: Dextrose 2.5% in 5000 mL (+ 7.5% last fill) Dwell Time (min): 77 min Drain Time (min): 39 min Initial Drain Volume (mL): 690 mL Last Fill Volume (mL): 785 mL Fill Volume In (mL): 56766 mL Effluent Volume Out (mL): 12935 ml Balance This Exchange (mL): 1944 mL [...] edema I/O last 2 completed shifts: In: 07203 [P.O.:440; Other:92420] Out: 42283 [Urine:300; Other:81967] I have reviewed current medications and the [...] FERRITIN 2,062 (H) 06/07/[address] worker Division of Nephrology Progress Notes by Frank Bowers MD at 06/28/2022 3:30 PM Version 1 of 1 Author: Frank Bowers MD Specialty: Internal Medicine Author Type: Physician Filed: 06/28/2022 3:30 PM Date of Service: 06/28/2022 3:30 PM Status: Signed Tire Maintenance Technician: Frank Bowers MD (Physician) Daily Progress Note Division of Hospital Medicine Name: Adelia Garvin Jr. Today: June 28, 2022 : 1970 Age: 51 y.o. male Admit: 06/04/2022 Bed: [id number] Subjective Chief complaint: NSTEMI Interval History: Pt [...] 06/28/2022 1300 Gross per 24 hour Intake 35325 ml Output 55964 ml Net -851 ml Physical Exam Constitutional: [...] * NSTEMI (non-ST elevated myocardial infarction) (CMS/HCC) ([facility]) Assessment & Plan With recurrent chest pain [...] been accepted ESRD (end stage renal disease) ([facility] ([facility]) Assessment & Plan - Renal consulted, s/p CRRT in the ICU now back on PD. Tolerated well and nephrology following - Trialysis catheter removed - Continue vitamins for renal bone mineral disease. Type 1 diabetes mellitus ([facility]) Assessment & Plan A1c well controlled on [...] increase NPH 45u before PD Atrial fibrillation ([facility]) ([facility]) Assessment & Plan Converted to NSR overnight on 06/24. CHADsVASc of 4 not on anticoagulation prior to admission. - cardiology consulted - recommended ongoing rate control - holding off on a/c with high risk for bleeding while on DAPT - reduced metop to 25mg BID in the setting of hypotension, HR 70s NSR Acute on chronic HFrEF (heart failure with reduced ejection fraction) ([facility]) Assessment & Plan C/b cardiogenic shock requiring [...] and trend Hb. Acute hypoxemic respiratory failure ([facility]) Assessment & Plan Secondary to ACS and flash pulmonary edema, since resolved and extubated on 06/19. Patient passed barium swallow on 06/21. Progress Notes by Frank Bowers MD at 06/29/2022 10:12 AM Version 1 of 1 Author: Frank Bowers MD Specialty: Internal Medicine Author Type: Physician Filed: 06/29/2022 10:12 AM Date of Service: 06/29/2022 10:12 AM Status: Signed Tire Maintenance Technician: Frank Bowers MD (Physician) Daily Progress Note Division of Hospital Medicine Name: Adelia Garvin Jr. Today: June 29, 2022 : 1970 Age: 51 y.o. male Admit: 06/04/2022 Bed: [id number] Subjective Chief complaint: NSTEMI Interval History: Pt [...] 06/29/2022 0815 Gross per 24 hour Intake 15282 ml Output 91729 ml Net -664 ml Physical Exam Constitutional: [...] Resolved. * NSTEMI (non-ST elevated myocardial infarction) ([facility]) ([facility]) Assessment & Plan With recurrent chest pain [...] rehab today ESRD (end stage renal disease) ([facility]) ([facility]) Assessment & Plan - Renal consulted, s/p [...] of peritoneal dialysis session Atrial fibrillation (CMS/HCC) ([facility]) Assessment & Plan Converted to NSR overnight on 06/24. CHADsVASc of 4 not on anticoagulation prior to admission. - cardiology consulted - recommended ongoing rate control - holding off on a/c with high risk for bleeding while on DAPT - reduced metop to 25mg BID in the setting of hypotension, HR 70s NSR Acute on chronic HFrEF (heart failure with reduced ejection fraction) ([facility]) Assessment & Plan C/b cardiogenic shock requiring [...] of Service: 06/29/2022 10:13 AM Status: Signed Tire Maintenance Technician: Frank Bowers MD (Physician) Inpatient Discharge Summary BRIEF OVERVIEW Admitting Provider: Catherine Adams MD Discharge Provider: Frank Bowers MD Primary Care Physician at Discharge: Aditya Castro MD [phone] Admission Date: 06/04/2022 Discharge Date: 06/29/2022 Admission Location: [facility] Problems/Diagnoses: Principal Problem: NSTEMI (non-ST elevated myocardial infarction) ([facility]) ([facility]) Active Problems: Cardiogenic shock ([facility]) Type 1 diabetes mellitus ([facility]) ESRD (end stage renal disease) ([facility]) ([facility] Acute hypoxemic respiratory failure ([facility]) Anemia Acute on chronic HFrEF (heart failure with reduced ejection fraction) ([facility]) Atrial fibrillation ([facility]) ([facility]) Resolved Problems: No resolved hospital problems. DETAILS OF HOSPITAL STAY Presenting Problem/History of Present Illness: As per Admission H&P AC), HTN, CAD s/p stent 04/06 and 3 stent 12/07, T1DM (insulin pump at home), ESRD on PD, HLD, GERD, hyperparathyroidism, DDD, OA, gout, BEN on CPAP initially presented to [facility] for n/v andchest pain, transferred to [facility] for LHC/PCI, now presenting to CCU s/p complex PCI with impella and intubated. At the OSH he presented with 3d generalized weakness, chills, ROONEY, n/v, chest pain relieved by sublingual ntg. His labs were notable for trop 1.0-->1.09-->0.729, BNP 16774. He had a CT CAP showing cholelithiasis [...] circumflex as optimal treatment, prompting transfer to [facility]. He arrived at [place] 06/05. EKG showed sinus bradycardia, 1st deg [...] 06/22. * NSTEMI (non-ST elevated myocardial infarction) ([facility]) ([facility]) With interventions described above. Post-transfer and post-cath, [...] on discharge given pressure tolerance. Atrial fibrillation ([facility]) ([facility]) He was in atrial fibrillation on transfer [...] HFrEF (heart failure with reduced ejection fraction) ([facility]) He developed cardiogenic shock requiring impella in the setting of cath c/b AHRF 2/2 pulmonary edema. Post-cath, TTE demonstrated recovered EF 65% with grade I diastolic dysfunction. Volume was managed with CRRT in ICU, then by resumption of PD on the medical floor. In discussion with nephrology, low dose losartan was started for GDMT in addition to metoprolol. ESRD (end stage renal disease) ([facility]) ([facility]) Renal consulted on admission with history of ESRD on PD. While in ICU, temporary dialysis catheter was placed to facilitate CRRT for volume removal. Upon transfer to the floor, PD was continued and tolerated well. He was continued on his home vitamins for renal bone mineral disease and phoslo. Trialysis removed 06/25. Type 1 diabetes mellitus ([facility]) Prior to admission, his A1c was well [...] REMOVE PERC ARTERIAL VAD (IMPELLA), DIFFERENT SESSION 28651 Other Procedures: Pertinent Test Results: See hospital [...] Influenza, Quadrivalent, Split, Preservative Free, Intramuscular 06/04/22 [employer] ([facility]) SARS-CoV-2 Vaccination 11/04/20 [facility] SARS-CoV-2 Vaccination (12+ YRS) 09/21/21 Generated by [id number] at 06/29/22 11:31 AM Page TROLLEY AND TAXI INSTRUCTOR * Assessment & Plan Note - Frank Bowers MD - 06/29/2022 10:12 AM BUS TROLLEY AND TAXI INSTRUCTOR Associated Problem(s): Atrial fibrillation (CMS/HCC) (HCC) Converted to NSR overnight on 06/24. CHADsVASc of 4 not on anticoagulation prior to admission. - cardiology consulted - recommended ongoing rate control - holding off on a/c with high risk for bleeding while on DAPT - reduced metop to 25mg BID in the setting of hypotension, HR 70s NSR TROLLEY AND TAXI INSTRUCTOR * Assessment & Plan Note - Frank Bowers MD - 06/29/2022 10:12 AM BUS TROLLEY AND TAXI INSTRUCTOR Associated Problem(s): Acute on chronic HFrEF (heart failure with reduced ejection fraction) ([facility]) C/b cardiogenic shock requiring impella in the setting of cath and AHRF 2/2 pulmonary edema, now resolved. TTE demonstrating recovered EF 65% with grade I diastolic dysfunction. - metop as above - continue low dose losartan 12.5mg daily, ok per nephro. Tolerating well - volume management per PD TROLLEY AND TAXI INSTRUCTOR * Assessment & Plan Note - Frank Bowers MD - 06/29/2022 10:12 AM BUS TROLLEY AND TAXI INSTRUCTOR Associated Problem(s): Anemia Stable, likely 2/2 anemia from ESRD, no evidence of bleeding. Underwent CT c/a/p without internal hematoma. - Monitor and trend Hb. TROLLEY AND TAXI INSTRUCTOR * Assessment & Plan Note - Frank Bowers MD - 06/29/2022 10:12 AM BUS TROLLEY AND TAXI INSTRUCTOR Associated Problem(s): Acute hypoxemic respiratory failure (HCC) Secondary to ACS and flash pulmonary edema, since resolved and extubated on 06/19. Patient passed barium swallow on 06/21. TROLLEY AND TAXI INSTRUCTOR * Assessment & Plan Note - Frank Bowers MD - 06/29/2022 10:12 AM BUS TROLLEY AND TAXI INSTRUCTOR Associated Problem(s): ESRD (end stage renal disease) (CMS/HCC) (HCC) - Renal consulted, s/p CRRT in the ICU now back on PD. Tolerated well and nephrology following - Trialysis catheter removed - Continue vitamins for renal bone mineral disease. TROLLEY AND TAXI INSTRUCTOR * Assessment & Plan Note - Frank Bowers MD - 06/29/2022 10:11 AM BUS TROLLEY AND TAXI INSTRUCTOR Associated Problem(s): Type 1 diabetes mellitus (HCC) [...] units with start of peritoneal dialysis session TROLLEY AND TAXI INSTRUCTOR * Assessment & Plan Note - Frank Bowers MD - 06/29/2022 10:11 AM BUS TROLLEY AND TAXI INSTRUCTOR Associated Problem(s): Cardiogenic shock (HCC) Secondary to NSTEMI, s/p Impella since removed on 06/10. Resolved. TROLLEY AND TAXI INSTRUCTOR * Assessment & Plan Note - Frank Bowers MD - 06/29/2022 10:11 AM BUS TROLLEY AND TAXI INSTRUCTOR Associated Problem(s): NSTEMI (non-ST elevated myocardial infarction) [...] Pt overall improving, DC to rehab today TROLLEY AND TAXI INSTRUCTOR * Subjective & Objective - Frank Bowers MD - 06/29/2022 10:10 AM BUS TROLLEY AND TAXI INSTRUCTOR Daily Progress Note Division of Hospital Medicine Name: Adelia Garvin Jr. Today: June 29, 2022 : 1970 Age: 51 y.o. male Admit: 06/04/2022 Bed: [id number] Subjective Chief complaint: NSTEMI Interval History: Pt [...] 06/29/2022 0815 Gross per 24 hour Intake 27341 ml Output 54707 ml Net -664 ml Physical Exam Constitutional: [...] controlled, some low 200 Negative covid test. TROLLEY AND TAXI INSTRUCTOR * Plan of Care - [place] [...] to chair, discharge to inpatient rehab today TROLLEY AND TAXI INSTRUCTOR * Summary of Treatment Recommendations Non-Billable - [...] and adjust insulin pump settings as needed. TROLLEY AND TAXI INSTRUCTOR * Plan of Care - Gucci Macedo, FANY - 06/29/2022 1:28 AM CST BEN Continue on NPPV TROLLEY AND TAXI INSTRUCTOR * Consults, Subsequent - James Horvath MD - 06/28/2022 5:36 PM BUS TROLLEY AND TAXI INSTRUCTOR NEPHROLOGY CONSULT SUBSEQUENT VISIT INTERVAL HISTORY: NAEO. [...] Date 06/27/22699 - 06/28/2265806/28/22699 - 06/29/2259 Shift [id number] 24 Hour Total 4427-1910 8884-9240 24 Hour Total INTAKE P.O. 400 400 Other 29480 05689 Shift Total(mL/kg) 71076(101.4) 97021(101.4) 400(3.3) 400(3.3) OUTPUT Urine(mL/kg/hr) 200(0.1) 200(0.1) 150 150 Other 12913 45138 Shift Total(mL/kg) 200(1.7) 40095(110.5) 86674(112.2) 150(1.2) 150(1.2) NET -200 -1101 -1301 250 [...] Fellow PGY-4 Consult 1 Service Contact (phone): [phone] After hours and weekends: please page [phone] Cosigned by Arleen Andre MD at 06/28/2022 8:35 PM BUS TROLLEY AND TAXI INSTRUCTOR TROLLEY AND TAXI INSTRUCTOR TROLLEY AND TAXI INSTRUCTOR Associated attestation - Arleen Andre MD - 06/28/2022 8:35 PM BUS TROLLEY AND TAXI INSTRUCTOR I saw and examined the patient on 06/28/2022. I have discussed the patient's management with the nephrology fellow/resident. I agree with the findings, assessment and plan of care as documented in thefellow's/resident's note. Additional history, findings, assessment and recommendations, if any, are outlined below. Arleen Andre MD court worker Division of Nephrology * Subjective & Objective - Frank Bowers MD - 06/28/2022 3:21 PM BUS TROLLEY AND TAXI INSTRUCTOR Daily Progress Note Division of Hospital Medicine Name: Adelia Garvin Jr. Today: June 28, 2022 : 1970 Age: 51 y.o. male Admit: 06/04/2022 Bed: [id number] Subjective Chief complaint: NSTEMI Interval History: Pt [...] 06/28/2022 1300 Gross per 24 hour Intake 93251 ml Output 02245 ml Net -851 ml Physical Exam Constitutional: [...] this written report and agrees with it. TROLLEY AND TAXI INSTRUCTOR * Plan of Care - Elsie Gonzalez RN - 06/28/2022 3:16 PM CST Test Automation Architect noted patient has been recommended for inpatient rehab by PT/OT. executive account manager met withthe patient at bedside to discuss recommendations by therapy and to work on a potential discharge disposition plan. Test Automation Architect provided education to patient on inpt rehab facilities and the rehabilitation process.Patient reported he was interested in short term inpatient rehab. executive account manager explained to the patient the choices were limited due to his PD. Per patient request, CM sent referrals to inpatient rehab facilities near [facility]. Facilities in [place] unable to accept PD at this time. CM sent referrals to [facility]. [facility] is able to accept PD patient and they have beds available tomorrow. Per patient choice will transfer to [facility] tomorrow. [facility] intake coord and care team notified of patient choice. TROLLEY AND TAXI INSTRUCTOR * Consults, Subsequent - Dora Delarosa NP - 06/28/2022 1:30 PM CST Endocrinology & Diabetes Progress Note Patient: Adelia Garvin Jr., 51 y.o. male (: 1970) Room: [place] [address]/[id number] ( ) LOS: 24 Adelia Garvin Jr. [...] agitation. 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, with shelter use of insulin, complicated by ESRD on PD, CAD s/p PCI, CHF - HbA1c 7.4% - Uses Omnipod and Dexcom G6 at home, not currently on this- doesn't have the supplies -On significantly higher basal rates on pump at night due to peritoneal dialysis -home settings: Basal rate 0330 >>1.7 0800 >> 0.8 2000 >> 5.8 ICR1:6.5 ISF1:25 [id number] TIA 4 Over the previous 24 hours, [...] recommend decreasing the basal insulin dose from 0517-5903 today. We will continue to intensely monitor [...] ## Discharge Planning - Follow-up with home telescope repairer -- Dora Delarosa NP Endocrinology, Metabolism, & Lipid Research Contact Info: New Consults: [phone]) General Endocrine (Non-Diabetes): [phone] (Check 'Treatment Team' assignment for Diabetes 1 vs 2 vs 3) Diabetes 1: Diabetes Fellow: [phone] Diabetes 2: Dora Delarosa COMMUNICATION SPECIALIST: [phone] Diabetes 3: See Treatment Team Provider (or call Dora Delarosa, above) Diabetes After-Hours & Weekends: Diabetes Fellow TROLLEY AND TAXI INSTRUCTOR * Plan of Care - Elsie Gonzalez RN - 06/28/2022 1:24 PM CST CM sent 5 more referrals in [facility] for inpt rehab- awaiting response from facility that can accept PD patients TROLLEY AND TAXI INSTRUCTOR * Plan of Care - [place] [...] up to chair, monitor tele and vitals TROLLEY AND TAXI INSTRUCTOR * Plan of Care - Sasha Leonard, [...] on-going diet recs, safe swallow strategies, and WORLD GEOGRAPHY TEACHER POC, they verbalized understanding and agreement. ST to s/o. TROLLEY AND TAXI INSTRUCTOR * Hospital Course - Carey East MD - 06/27/2022 9:31 PM BUS TROLLEY AND TAXI INSTRUCTOR Adelia Garvin is 51 y.o. male with [...] 06/22. * NSTEMI (non-ST elevated myocardial infarction) ([facility] ([facility]) With interventions described above. Post-transfer and post-cath, [...] DAPT and atorvastatin as well. Atrial fibrillation ([facility]) ([facility]) He was in atrial fibrillation on transfer [...] HFrEF (heart failure with reduced ejection fraction) ([facility]) He developed cardiogenic shock requiring impella in the setting of cath c/b AHRF 2/2 pulmonary edema. Post-cath, TTE demonstrated recovered EF 65% with grade I diastolic dysfunction. Volume was managed with CRRT in ICU, then by resumption of PD on the medical floor. In discussion with nephrology, low dose losartan was started for GDMT in addition to metoprolol. ESRD (end stage renal disease) ([facility] ([facility]) Renal consulted on admission with history of ESRD on PD. While in ICU, temporary dialysis catheter was placed to facilitate CRRT for volume removal. Upon transfer to the floor, PD was continued and tolerated well. He was continued on his home vitamins for renal bone mineral disease and phoslo. Trialysis removed 06/25. Type 1 diabetes mellitus ([facility]) Prior to admission, his A1c was well [...] barium swallow on 06/21. Remained on RA. TROLLEY AND TAXI INSTRUCTOR TROLLEY AND TAXI INSTRUCTOR * ECIN Note - Elsie Gonzalez RN [...] 06/27/22 0700 - 06/28/22 0659 Total Total 5754-7832 8436-8136 2569-6502 Total 1562-8705 6871-0314 4626-3300 Total Intake (ml) 72202 48339 340 100 95856 62933 -- -- -- -- Output (ml) 41663 19148 300 -- 66600 31579 200 -- -- 200 Net (ml) -2404 [...] -- SpO2 -- 92 % 96 % TROLLEY AND TAXI INSTRUCTOR * Consults, Subsequent - Dora Delarosa NP - 06/27/2022 1:13 PM CST Endocrinology & Diabetes Progress Note Patient: Adelia Garvin Jr., 51 y.o. male (: 1970) Room: [place] [id number] ( ) LOS: 23 Adelia Garvin Jr. [...] labs, imaging, and diagnostics independently reviewed in [facility] and commented on below. Lab Results [...] agitation. 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, with intermediate accountant use of insulin, complicated by ESRD on PD, CAD s/p PCI, CHF - HbA1c 7.4% - Uses Omnipod and Dexcom G6 at home, not currently on this- doesn't have the supplies -On significantly higher basal rates on pump at night due to peritoneal dialysis -home settings: Basal rate 0330 >>1.7 0800 >> 0.8 2000 >> 5.8 ICR1:6.5 ISF1:25 [id number] TIA 4 Over the previous 24 hours, [...] ## Discharge Planning - Follow-up with home telescope repairer -- Dora Delarosa NP Endocrinology, Metabolism, & Lipid Research Contact Info: New Consults: [phone]) General Endocrine (Non-Diabetes): [phone] (Check 'Treatment Team' assignment for Diabetes 1 vs 2 vs 3) Diabetes 1: Diabetes Fellow: [phone] Diabetes 2: Dora Delarosa NP: [phone] Diabetes 3: See Treatment Team Provider (or call Dora Delarosa, above) Diabetes After-Hours & Weekends: Diabetes Fellow TROLLEY AND TAXI INSTRUCTOR * Plan of Care - Adelita Self RN - 06/26/2022 3:00 PM CST Problem: Lack of Knowledge: Goal: Knowledge of disease or condition will improve Outcome: Progressing Goals: Clinical Goals for the Shift: up to chair Summary: Up to chair for about 2 hours. TROLLEY AND TAXI INSTRUCTOR * Plan of Care - Gucci Macedo, MULTIMEDIA DESIGNER - 06/26/2022 1:28 AM CDT BEN Continue [...] 0659 06/25/22 07 - 06/26/22 0659 Shift 0391-2428 9951-8559 24 Hour Total 1762-3345 1381-2289 24 Hour Total INTAKE Other 87938 05476 Shift Total(mL/kg) 91483(101.9) 11110(101.9) OUTPUT Other 14671 03406 Shift Total(mL/kg) 57796(122) 90091(122) NET -2404 -2404 Weight (kg) 119 119.7 [...] Fellow PGY-4 Consult 1 Service Contact (phone): [phone] After hours and weekends: please page [phone] Cosigned by Miriam Driver MD at 06/28/2022 8:11 AM BUS TROLLEY AND TAXI INSTRUCTOR TROLLEY AND TAXI INSTRUCTOR Associated attestation - Miriam Driver MD - 06/28/2022 8:11 AM BUS TROLLEY AND TAXI INSTRUCTOR I have seen and examined the patient on 06/25/22. I agree with the findings and plan of care as documented in the nephrology fellow's note. Miriam Driver MD Hand Developer Division of Nephrology * Plan of Care - Adelita Self RN - 06/25/2022 10:00 AM CDT Problem: Health Behavior: Goal: Understanding of discharge needs will improve Outcome: Progressing Goals: Clinical Goals for the Shift: up to chair Summary: Up to chair for short period this am. * Plan of Care - Wandy Garay, MULTIMEDIA DESIGNER - 06/25/2022 4:45 AM CDT NPPV Situation: [...] 0659 06/24/22 07 - 06/25/22 0659 Shift 5695-0602 4605-0946 24 Hour Total 2772-5244 0133-3859 24 Hour Total INTAKE Other 15412 20521 IV Piggyback 250 250 Shift Total(mL/kg) 250(2.1) 06708(101.5) 27377(103.6) OUTPUT Urine(mL/kg/hr) 250(0.2) 250(0.1) Emesis/NG output 0 0 Other 11352 11849 Stool 0 0 Shift Total(mL/kg) 94917(106.5) 28017(106.5) NET 250 -501 -636 Weight (kg) 119.9 119.9 119.9 119 119 [...] Fellow PGY-4 Consult 1 Service Contact (phone): [phone] After hours and weekends: please page [phone] Cosigned by Miriam Driver MD at 06/24/2022 8:25 PM CDT Associated attestation - Miriam Driver MD - 06/24/2022 8:25 PM CDT I have seen and examined the patient on 06/24/22. I agree with the findings and plan of care as documented in the nephrology fellow's note. Agree with endocrinology. Continue PD settings. Miriam Driver MD Hand Developer Division of Nephrology * Plan of Care [...] Outcome: Progressing * Plan of Care - Sasah Leonard SLP - 06/24/2022 2:50 PM CDT [...] hygiene prior to po Specialty Instructions/Modifications: alert WORLD GEOGRAPHY TEACHER if pt coughing with meals WORLD GEOGRAPHY TEACHER noted pt was advanced to regular diet [...] updated diet recs, safe swallow strategies, and WORLD GEOGRAPHY TEACHER POC, they verbalized understanding and agreement. ST will briefly continue to follow. * Consults, Subsequent - Dora Delarosa NP - 06/24/2022 12:29 PM CDT Endocrinology & Diabetes Progress Note Patient: Adelia Garvin Jr., 51 y.o. male (: 1970) Room: [place] [address] ( ) LOS: 20 Adelia Garvin Jr. [...] agitation. 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, with intermediate accountant use of insulin, complicated by ESRD on PD, CAD s/p PCI, CHF - HbA1c 7.4% - Uses Omnipod and Dexcom G6 at home, not currently on this- doesn't have the supplies -On significantly higher basal rates on pump at night due to peritoneal dialysis -home settings: Basal rate 0330 >>1.7 0800 >> 0.8 2000 >> 5.8 ICR1:6.5 ISF1:25 [id number] TIA 4 Over the previous 24 hours, [...] ## Discharge Planning - Follow-up with home telescope repairer -- Dora Delarosa NP Endocrinology, Metabolism, & Lipid Research Contact Info: New Consults: [phone]) General Endocrine (Non-Diabetes): [phone] (Check 'Treatment Team' assignment for Diabetes 1 vs 2 vs 3) Diabetes 1: Diabetes Fellow: [phone] Diabetes 2: Dora Delarosa COMMUNICATION SPECIALIST: [phone] Diabetes 3: See Treatment Team Provider (or [...] assistance, please check the treatment team in [facility] for the assigned embedded case manager or contact the weekend Case [...] 06/24/2022 0536 Gross per 24 hour Intake 54899 ml Output 00951 ml Net -347 ml Physical Exam: General: [...] ESRD on PD who was transferred to [facility] for an impella-supported complex PCI on [...] us if questions arise. Will Villavicencio MD Paleology Professor 11:36 AM 06/24/22 Cosigned by Musa Fernando MD at 06/25/2022 9:04 PM CDT Associated attestation - Musa Fernando MD - 06/25/2022 9:04 PM CDT 06/24/2022 I have personally seen and examined this pt with resident/Fellow/COMMUNICATION SPECIALIST . I have reviewed History/Physical exam and plan for management. I agree with it . Musa Fernando M.D., Gerry. hooker inspector [facility] [employer] [facility]. [place] This note contains [...] about verbage above please contact me at [phone]. . * Plan of Care - Jefferson [...] 06/23/22 0606/23/22 07 - 06/24/22 0659 Shift 7678-7123 24 Hour Total 2414-1608 9575-7046 24 Hour Total INTAKE Other 60769 38812 IV Piggyback 250 250 Shift Total(mL/kg) 95089(101.2) 97646(101.2) 250(2.1) 250(2.1) OUTPUT Urine(mL/kg/hr) 450 450 Other 65991 93929 Shift Total(mL/kg) 49778(122.6) 96898(122.6) [facility] -2574 -2577 250 250 Weight (kg) 120.5 120.5 119.9 [...] Fellow PGY-4 Consult 1 Service Contact (phone): [phone] After hours and weekends: please page [phone] Cosigned by Miriam Driver MD at 06/23/2022 8:48 PM CDT Associated attestation - Miriam Driver MD - 06/23/2022 8:48 PM CDT I have seen and examined the patient on 06/23/22. I agree with the findings and plan of care as documented in the nephrology fellow's note. Miriam Driver MD Hand Developer Division of Nephrology * Assessment & Plan [...] dc tomorrow as pt has been accepted TROLLEY AND TAXI INSTRUCTOR TROLLEY AND TAXI INSTRUCTOR * Assessment & Plan Note - Frank [...] the setting of hypotension, HR 70s NSR TROLLEY AND TAXI INSTRUCTOR * Assessment & Plan Note - Frank Bowers MD - 06/23/2022 4:47 PM CDT Associated Problem(s): Acute on chronic HFrEF (heart failure with reduced ejection fraction) ([facility]) C/b cardiogenic shock requiring impella in the setting of cath and AHRF 2/2 pulmonary edema, now resolved. TTE demonstrating recovered EF 65% with grade I diastolic dysfunction. - metop as above - continue low dose losartan 12.5mg daily, ok per nephro. Tolerating well - volume management per PD TROLLEY AND TAXI INSTRUCTOR * Assessment & Plan Note - Frank Bowers MD - 06/23/2022 4:47 PM CDT Associated Problem(s): ESRD (end stage renal disease) ([facility]) ([facility]) - Renal consulted, s/p CRRT in the ICU now back on PD. Tolerated well and nephrology following - Trialysis catheter removed - Continue vitamins for renal bone mineral disease. TROLLEY AND TAXI INSTRUCTOR * Assessment & Plan Note - Carey [...] resistant SSI increase NPH 45u before PD TROLLEY AND TAXI INSTRUCTOR * Consults, Subsequent - Dora Delarosa NP - 06/23/2022 1:48 PM CDT Endocrinology & Diabetes Progress Note Patient: Adelia Garvin Jr., 51 y.o. male (: 1970) Room: [place] [address] [address] ( ) LOS: 19 Adelia Garvin Jr. [...] agitation. 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, with intermediate accountant use of insulin, complicated by ESRD on PD, CAD s/p PCI, CHF - HbA1c 7.4% - Uses Omnipod and Dexcom G6 at home, not currently on this- doesn't have the supplies -On significantly higher basal rates on pump at night due to peritoneal dialysis -home settings: Basal rate 0330 >>1.7 0800 >> 0.8 2000 >> 5.8 ICR1:6.5 ISF1:25 [id number] TIA 4 Over the previous 24 hours, [...] ## Discharge Planning - Follow-up with home telescope repairer -- Dora Delarosa NP Endocrinology, Metabolism, & Lipid Research Contact Info: New Consults: [phone]) General Endocrine (Non-Diabetes): [phone] (Check 'Treatment Team' assignment for Diabetes 1 vs 2 vs 3) Diabetes 1: Diabetes Fellow: [phone] Diabetes 2: Dora Delarosa NP: [phone] Diabetes 3: See Treatment Team Provider (or [...] 0659 06/22/22 0700 - 06/23/22 0659 Shift 5238-0473 24 Hour Total 2979-6445 4905-0168 24 Hour Total INTAKE I.V.(mL/kg) 133.2(1.1) Other 49171 28027 NG/GT 100 Shift Total(mL/kg) 73950(93.8) 27651.2(95.7) OUTPUT Urine(mL/kg/hr) 450 450 Emesis/NG output 0 Other 85992 90624 Shift Total(mL/kg) 00350(108.4) 91840(108.4) 450(3.7) 450(3.7) NET -1759 -1525.8 -450 -450 [...] Fellow PGY-4 Consult 1 Service Contact (phone): [phone] After hours and weekends: please page [phone] Cosigned by Miriam Driver MD at 06/23/2022 11:57 AM CDT Associated attestation - Miriam Driver MD - 06/23/2022 11:57 AM CDT I have seen and examined the patient on 06/22/22. I agree with the findings and plan of care as documented in the nephrology fellow's note. Miriam Driver MD Hand Developer Division of Nephrology * Assessment & Plan Note - Luiz Lewis DO - 06/22/2022 8:21 PM CDT Associated Problem(s): Cardiogenic shock (HCC) -Secondary to NSTEMI, s/p Impella since removed on 06/10. * Assessment & Plan Note - Luiz Lewis DO - 06/22/2022 8:20 PM CDT Associated Problem(s): NSTEMI (non-ST elevated myocardial infarction) (CMS/HCC) ([facility]LY [facility]) -Patient with multiple risk factors, s/p complex PCI to LCx and OM bifurcation with MARIELLA. -Continue DAPT with aspirin, Plavix and atorvastatin. * Assessment & Plan Note - Luiz Lewis DO - 06/22/2022 8:18 PM CDT Associated Problem(s): Atrial fibrillation (CMS/HCC) ([facility]) -Currently rated controlled with metoprolol, CHADsVASc of 4 not on anticoagulation prior to admission. -Follow cardiology for initiation of AC. * Assessment & Plan Note - Luiz Lewis DO - 06/22/2022 8:16 PM CDT Associated Problem(s): Acute on chronic HFrEF (heart failure with reduced ejection fraction) ([facility]) -With acute exacerbation complicated by pulmonary edema since resolved. -Repeat TTE following Impella removal showed recovered EF of 65% with grade I diastolic dysfunction. -Continue metoprolol tartrate, start GDMT per cardiology. * Assessment & Plan Note - Luiz Lewis DO - 06/22/2022 8:15 PM CDT Associated Problem(s): ESRD (end stage renal disease) (CMS/HCC) ([facility]) -Renal consulted, s/p CRRT in the ICU [...] for n/v and chest pain, transferred to [facility] for LHC/PCI, who presented to CCU s/p complex PCI with impella and intubated. Now extubated, tolerating PO intake, on home PD. Arrived at [facility] from OSH on 06/05. EKG showed sinus [...] Elsie of the [facility] service. QUESTIONS? Call [phone] * Subjective & Objective - Luiz Lewis, [...] at 06/22/20221944 Gross per 24 hour Intake 79775 ml Output 88302 ml Net -2209 ml Constitutional - chronically [...] made/in place: 51 yo male transferred to [facility] ICU for complex PCI with impella.Unable [...] Patient and/or family are agreeable with plan. executive account manager will continue to follow and assist with discharge planning as needed. If any further discharge needs arise, please contact the covering embedded case manager. Rossi Hay RN * Consults, Subsequent - Dora Delarosa NP - 06/22/2022 12:39 PM CDT Endocrinology & Diabetes Progress Note Patient: Adelia Garvin Jr., 51 y.o. male (: 1970) Room: [place] [address] [address] ( ) LOS: 18 Adelia Garvin Jr. [...] night. Diet: Adult Diet Restricted; [facility] Consistent Carbohydrate; Renal Over the [...] agitation. 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, with shelter use of insulin, complicated by ESRD on PD, CAD s/p PCI, CHF - HbA1c 7.4% - Uses Omnipod and Dexcom G6 at home, not currently on this- doesn't have the supplies -On significantly higher basal rates on pump at night due to peritoneal dialysis -home settings: Basal rate 0330 >>1.7 0800 >> 0.8 2000 >> 5.8 ICR1:6.5 ISF1:25 [id number] TIA 4 Over the previous 24 hours, [...] ## Discharge Planning - Follow-up with home telescope repairer -- Dora Delarosa NP Endocrinology, Metabolism, & Lipid Research Contact Info: New Consults: [phone]) General Endocrine (Non-Diabetes): [phone] (Check 'Treatment Team' assignment for Diabetes 1 vs 2 vs 3) Diabetes 1: Diabetes Fellow: [phone] Diabetes 2: Dora Delarosa NP: [phone] Diabetes 3: See Treatment Team Provider (or [...] 0659 06/21/22 07 - 06/22/22 0659 Shift 7262-2153 0478-6354 24 Hour Total 5090-8953 9357-0143 24 Hour Total INTAKE I.V.(mL/kg) 225(1.8) 399.6(3.4) [...] Fellow PGY-4 Consult 1 Service Contact (phone): [phone] After hours and weekends: please page [phone] Cosigned by Miriam Driver MD at 07/04/2022 10:00 AM BUS TROLLEY AND TAXI INSTRUCTOR TROLLEY AND TAXI INSTRUCTOR Associated attestation - Miriam Driver MD - 07/04/2022 10:00 AM BUS TROLLEY AND TAXI INSTRUCTOR I have seen and examined the patient on 06/21/22. I agree with the findings and plan of care as documented in the nephrology Fellow's note. Miriam Driver MD Hand Developer Division of Nephrology * Consults, Subsequent - Dora Delarosa NP - 06/21/2022 1:09 PM CDT Endocrinology & Diabetes Progress Note Patient: Adelia Garvin Jr., 51 y.o. male (: 1970) Room: [place] [address] ( ) LOS: 17 Adelia Garvin Jr. [...] agitation. 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, with intermediate accountant use of insulin, complicated by ESRD on PD, CAD s/p PCI, CHF - HbA1c 7.4% - Uses Omnipod and Dexcom G6 at home, not currently on this- doesn't have the supplies -On significantly higher basal rates on pump at night due to peritoneal dialysis -home settings: Basal rate 0330 >>1.7 0800 >> 0.8 2000 >> 5.8 ICR1:6.5 ISF1:25 [id number] TIA 4 Over the previous 24 hours, [...] ## Discharge Planning - Follow-up with home telescope repairer -- Dora Delarosa NP Endocrinology, Metabolism, & Lipid Research Contact Info: New Consults: [phone]) General Endocrine (Non-Diabetes): [phone] (Check 'Treatment Team' assignment for Diabetes 1 vs 2 vs 3) Diabetes 1: Diabetes Fellow: [phone] Diabetes 2: Dora Delarosa COMMUNICATION SPECIALIST: [phone] Diabetes 3: See Treatment Team Provider (or [...] dialysis nursing of the conversation. I am application tester tonight, please do not hesitate to page if plans change. Chandrakant Nava MD Nephrology Fellow, PGY-4 Night Service [phone]. * Consults, Subsequent - Carol Sanchez MD - 06/20/2022 1:59 PM CDT Endocrinology & Diabetes Progress Note Patient: Adelia Garvin Jr., 51 y.o. male (: 1970) Room: [place] [address] [address] ( ) LOS: 16 Adelia Garvin Jr. is a 51 y.o. male with PMHx CHF (EF 50% in 2017), atrial fibrillation not on OAC, HTN/HLD, CAD s/p PCI, ESRD on PD, hyperparathyroidism presenting with weakness, N/V, diarrhea and chest pain. He is scheduled for [facility] on 06/06. 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, with intermediate accountant use of insulin, complicated by ESRD on PD, CAD s/p PCI, CHF - HbA1c 7.4% - Uses Omnipod and Dexcom G6 at home, not currently on this- doesn't have the supplies -On significantly higher basal rates on pump at night due to peritoneal dialysis -home settings: Basal rate 0330 >>1.7 0800 >> 0.8 2000 >> 5.8 ICR1:6.5 ISF1:25 [id number] TIA 4 High insulin requirements in setting [...] ## Discharge Planning - Follow-up with home telescope repairer -- Carol Sanchez MD Endocrinology, Metabolism, & Lipid Research Contact Info: New Consults: [phone]) General Endocrine (Non-Diabetes): [phone] (Check 'Treatment Team' assignment for Diabetes 1 vs 2 vs 3) Diabetes 1: Diabetes Fellow: [phone] Diabetes 2: Dora Delarosa COMMUNICATION SPECIALIST: [phone] Diabetes 3: See Treatment Team Provider (or call Dora Delarosa, above) Diabetes After-Hours & Weekends: Diabetes Fellow * Plan of Care - Milly Cooper RN - 06/20/2022 12:41 PM CDT Rounds with MD, embedded case manager, social work, & charge nurse [...] Patient and family are agreeable with plan. executive account manager will continue to follow and assist [...] [I.V.:1068.1; Blood:325; NG/GT:30; IV Piggyback:100] Out: 2775 [Other:6365] I have reviewed current medications and the [...] eventually back to PD Miriam Driver MD Hand Developer Division of Nephrology * Consults, Subsequent - [...] AM Result Value Ref Range Product code L8151O04 Unit Number [id number] Product Blood Type APOS Dispense Status ISSUED [...] AM Result Value Ref Range Product code F5705R04 Unit Number [id number] Product Blood Type APOS Dispense Status RETURNED [...] not require specific follow up. Please call application tester pulmonary consult fellow with additional questions or [...] findings: I/O last 2 completed shifts: In: 55901.4 [I.V.:1014.4; Other:48056; NG/GT:190; IV Piggyback:420] Out: 16306 [Other:69142] I have reviewed current medications and the [...] 93% I/O last 2 completed shifts: In: 05695.4 [I.V.:1014.4; Other:01489; NG/GT:190; IV Piggyback:420] Out: 93268 [Other:83351] I/O this shift: In: 480.2 [I.V.:480.2] Out: [...] 0.9% I/O last 2 completed shifts: In: 35450.3 [I.V.:1388.3; Other:48192; NG/GT:90; IV Piggyback:110] Out: 86211 [Other:83495; Stool:170] Objective Vitals: Vitals: 06/18/22 1508 BP: [...] Pulmonary will continue to follow. Please call application tester pulmonary consult fellow with additional questions or [...] Post Procedure Note Attending: Dr Payam Allison [facility] Counselor: Dr. Aric Whitlock Sedation/Anesthesia: Local Pre-Op/Pre-Procedure Diagnosis: [...] 0659 06/18/22 07 - 06/19/22 0659 Shift 8065-0355 7981-8707 24 Hour Total 7083-0413 1984-9233 24 Hour Total INTAKE I.V.(mL/kg) 953(7.3) 435.3(3.3) 1388.3(10.6) 189(1.4) 189(1.4) Other 7498 7483 39632 07665 12812 NG/GT 90 90 160 160 IV Piggyback 110 110 Shift Total(mL/kg) 8561(65.8) 8008.3(61.1) 22710.3(126.4) 80170(94.3) 47529(94.3) OUTPUT Urine(mL/kg/hr) 0(0) 0(0) Other 9865 6824 27337 30167 94506 Stool 170 170 Shift Total(mL/kg) 9865(75.8) 5754(43.9) 86380(119.1) 64352(115.6) 22428(115.6) NET -1304 2254.3 950.3 -2790 -2790 Weight [...] Fellow PGY-4 Consult 1 Service Contact (phone): [phone] After hours and weekends: please page [phone] Cosigned by Miriam Driver MD at 06/18/2022 7:03 PM CDT Associated attestation - Miriam Driver MD - 06/18/2022 7:03 PM CDT I have seen and examined the patient on 06/18/2022. I agree with the findings and plan of care as documented in the nephrology Fellow's note. Miriam Driver MD Hand Developer Division of Nephrology * Pre-Procedure Note - [...] type I ([facility]) Dialysis patient ([facility]) ([facility]) ESRD on dialysis ([facility]) ([facility]) GERD (gastroesophageal reflux disease) Hyperlipidemia Hypertension [...] AND POCT glucose, , , q2h, Jeffrey Geren MD dextrose 5% water flush 10 mL, [...] spray, 2 spray, each nostril, BID PRN, Fernnado Torres MD gentamicin (GARAMYCIN) 0.1 % cream, [...] injection 40 mg, 40 mg, intravenous, BID, OrchardMarcelina, ROBERTO, 40 mg at 06/18/22 0948 phenoL (CHLORASEPTIC) 1.4 % oral spray 1 spray, 1 spray, mouth/throat, Q2H PRN, Nadia Torres MD polyethylene glycol (MIRALAX) packet 17 g, 17 g, feeding tube, Daily PRN, Marcelina Pickard, ROBERTO polyethylene glycol (MIRALAX) packet 17 g, 17 g, feeding tube, BID, OrchardMarcelina, ROBERTO, 17 gat 06/18/22 0947 polyvinyl alcohol-povidone [...] been discussed with the patient and/or their operations representative. All questions answered and they agree to proceed. * This addendum was created to correct the sedation plan. Patient is already intubated and sedated.We will continue with current sedation. * Plan of Care - Jersey Castano, MULTIMEDIA DESIGNER - 06/18/2022 12:59 AM CDT Mechanical Ventilation [...] 06/16/22699 - 06/17/2265806/17/22699 - 06/18/22 0659 Shift 4332-3979 2935-0693 24 Hour Total 6477-3711 1561-9745 24 Hour Total INTAKE I.V.(mL/kg) 856.1(6.8) 544.4(4.3) [...] Fellow PGY-4 Consult 1 Service Contact (phone): [phone] After hours and weekends: please page [phone] Cosigned by Miriam Driver MD at 06/17/2022 7:02 PM CDT Associated attestation - Miriam Driver MD - 06/17/2022 7:02 PM CDT I have seen and examined the patient on 06/17/2022. I agree with the findings and plan of care as documented in the nephrology Fellow's note. Miriam Driver MD Hand Developer Division of Nephrology * Consults, Subsequent - [...] Pulmonary will continue to follow. Please call application tester pulmonary consult fellow with additional questions or [...] the resident/fellow.. * Consults, Subsequent - Delmar Lnogo MD PhD - 06/17/2022 9:13 AM CDT Endocrinology & Diabetes Progress Note Patient: Adelia Garvin Jr., 51 y.o. male (: 1970) Room: [place] [id number] ( ) LOS: 13 Adelia Garvin Jr. is a 51 y.o. male with PMHx CHF (EF 50% in 2017), atrial fibrillation not on OAC, HTN/HLD, CAD s/p PCI, ESRD on PD, hyperparathyroidism presenting with weakness, N/V, diarrhea and chest pain. He is scheduled for [facility] on 06/06. 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, with intermediate accountant use of insulin, complicated by ESRD on PD, CAD s/p PCI, CHF - HbA1c 7.4% - Uses Omnipod and Dexcom G6 at home, not currently on this- doesn't have the supplies -On significantly higher basal rates on pump at night due to peritoneal dialysis -home settings: Basal rate 0330 >>1.7 0800 >> 0.8 2000 >> 5.8 ICR1:6.5 ISF1:25 [id number] TIA 4 High insulin requirements in setting [...] ## Discharge Planning - Follow-up with home telescope repairer -- Delmar Longo MD PhD Endocrinology, Metabolism, & Lipid Research Contact Info: New Consults: [phone] (-[phone]) General Endocrine (Non-Diabetes): [phone] (Check 'Treatment Team' assignment for Diabetes 1 vs 2 vs 3) Diabetes 1: Diabetes Fellow: [phone] Diabetes 2: Dora Delarosa, COMMUNICATION SPECIALIST: [phone] Diabetes 3: See Treatment Team Provider (or call Dora Delarosa, above) Diabetes After-Hours & Weekends: Diabetes Fellow * Plan of Care - Jersey Castano, MULTIMEDIA DESIGNER - 06/17/2022 12:49 AM CDT Mechanical Ventilation [...] - 06/16/22 0606/16/22699 - 06/17/22 0659 Shift 3854-1142 1656-1184 24 Hour Total 1816-1526 2680-7986 24 Hour Total INTAKE I.V.(mL/kg) 624.4(5.1) 669(5.4) 1293.4(10.3) 729.7(5.8) 729.7(5.8) Other 1000 28903 72872 NG/GT 275 275 100 100 Shift Total(mL/kg) 1899.4(15.4) 49581(102.8) 55909.4(118) 829.7(6.6) 829.7(6.6) OUTPUT Urine(mL/kg/hr) 0(0) 0(0) 0(0) 0 0 Other 85093 41558 Shift Total(mL/kg) 0(0) 85458(96.7) 84817(96.7) 0(0) 0(0) NET 1899.4 768 2667.4 829.7 [...] Fellow PGY-4 Consult 1 Service Contact (phone): [phone] After hours and weekends: please page [phone] Cosigned by Miriam Driver MD at 06/16/2022 [...] now due to hyperglycemia. Miriam Driver MD Hand Developer Division of Nephrology * Pre-Procedure Note - [...] been closed and the order cancelled in [facility]. Thank you for the opportunity to [...] ramelteon I/O last 2 completed shifts: In: 43914.4 [I.V.:1293.4; Other:48006; NG/GT:275] Out: 09179 [Other:54447] Objective Vitals: Vitals: 06/16/22 1200 BP: Pulse: [...] Pulmonary will continue to follow. Please call application tester pulmonary consult fellow with additional questions or [...] y.o. male (: 1970) Room: [place] [address] [address] ( ) LOS: 12 Adelia Garvin Jr. is a 51 y.o. male with PMHx CHF (EF 50% in 2017), atrial fibrillation not on OAC, HTN/HLD, CAD s/p PCI, ESRD on PD, hyperparathyroidism presenting with weakness, N/V, diarrhea and chest pain. He is scheduled for [facility] on 06/06. 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, with shelter use of insulin, complicated by ESRD on PD, CAD s/p PCI, CHF - HbA1c 7.4% - Uses Omnipod and Dexcom G6 at home, not currently on this- doesn't have the supplies -On significantly higher basal rates on pump at night due to peritoneal dialysis -home settings: Basal rate 0330 >>1.7 0800 >> 0.8 2000 >> 5.8 ICR1:6.5 ISF1:25 [id number] TIA 4 Currently on TF Glucerna 1.5 ( CHO 133) Recommendations: - please increase Lantus to 40 units qAM - Humalog 10 units Q4hrs - NPH 15 units at the beginning of PD session - Resistant correctional Humalog q4 hrs - POC glucoses q4hrs Discharge recommendations: - TBD ## Discharge Planning - Follow-up with home telescope repairer -- Kellee Magallanes MD Endocrinology, Metabolism, & Lipid Research Contact Info: New Consults: [phone]) General Endocrine (Non-Diabetes): [phone] (Check 'Treatment Team' assignment for Diabetes 1 vs 2 vs 3) Diabetes 1: Diabetes Fellow: [phone] Diabetes 2: Dora Delarosa, COMMUNICATION SPECIALIST: [phone] Diabetes 3: See Treatment Team Provider (or [...] visit to the patient. Bryce Langley MD, [facility] Hand Developercourt worker Division of Endocrinology, Metabolism & Lipid Research [...] 0659 06/15/22 0700 - 06/16/22 0659 Shift 1289-9780 9023-3811 24 Hour Total 0540-4597 9817-2391 24 Hour Total INTAKE I.V.(mL/kg) 520.5(4) 498.9(4.1) 1019.4(8.3) 624.4(5.1) 624.4(5.1) NG/GT 407 336 7766 275 275 Shift Total(mL/kg) 905.5(7) 1278.9(10.4) 2184.4(17.8) [...] Fellow PGY-4 Consult 1 Service Contact (phone): [phone] After hours and weekends: please page [phone] Cosigned by Miriam Driver MD at 06/15/2022 7:33 PM CDT Associated attestation - Miriam Driver MD - 06/15/2022 7:33 PM CDT I have seen and examined the patient on 06/15/2022. I agree with the findings and plan of care as documented in the nephrology Fellow's note. Miriam Driver MD Hand Developer Division of Nephrology * Plan of Care [...] 06/14/2022 2:12 PM CDT Rounds with MD, embedded case manager, social work, & charge nurse [...] Patient and family are agreeable with plan. executive account manager will continue to follow and assist with discharge planning as needed * Consults, Subsequent - Miriam Driver MD - 06/14/2022 1:58 PM CDT Nephrology SLED/CRRT Procedure Note Date of Service: 06/14/2022 I saw and evaluated the patient during CRRT. Indication for MULTIMEDIA DESIGNER: ESRD Dialysis access: LIJ Trialysis catheter My [...] stable On systemic heparin Miriam Driver MD Hand Developer Division of Nephrology Consult 1: After 4 [...] Pulmonary will continue to follow. Please call application tester pulmonary consult fellow with additional questions or [...] evaluated the patient during CRRT. Indication for MULTIMEDIA DESIGNER: ESRD Dialysis access: LIJ Trialysis catheter My [...] y.o. male (: 1970) Room: [place] [address] [address] ( ) LOS: 9 Adelia Garvin Jr. [...] Plan 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, with intermediate accountant use of insulin, complicated by ESRD on PD, CAD s/p PCI, CHF - HbA1c 7.4% - Uses Omnipod and Dexcom G6 at home, not currently on this- doesn't have the supplies -On significantly higher basal rates on pump at night due to peritoneal dialysis -home settings: Basal rate 0330 >>1.7 0800 >> 0.8 2000 >> 5.8 ICR1:6.5 ISF1:25 [id number] TIA 4 Currently on TF Glucerna 1.5 ( CHO 133) Recommendations: - please decrease Lantus to 30 units qAM - Humalog 5 units Q4hrs - Resistant correctional Humalog q4 hrs - POC glucoses q4hrs Discharge recommendations: Start Omnipod insulin pump at pre-hospital settings #Acute hypoxic respiratory failure #ESRD on PD at home - on CRRT ## Discharge Planning - Follow-up with home telescope repairer We will sign off, we are happy to come back on board once he is back on his PD -- Kellee Magallanes MD Endocrinology, Metabolism, & Lipid Research Contact Info: New Consults: [phone] (-[phone]) General Endocrine (Non-Diabetes): [phone] (Check 'Treatment Team' assignment for Diabetes 1 vs 2 vs 3) Diabetes 1: Diabetes Fellow: [phone] Diabetes 2: Dora Delarosa, COMMUNICATION SPECIALIST: [phone] Diabetes 3: See Treatment Team Provider (or [...] discussion with the patient. Bryce Langley MD, [facility] Hand Developercourt worker Division of Endocrinology, Metabolism & Lipid Research [...] * Plan of Gayathri - Joyce Begum, MULTIMEDIA DESIGNER - 06/13/2022 4:03 AM CDT Patient on [...] evaluated the patient during CRRT. Indication for MULTIMEDIA DESIGNER: ESRD Dialysis access: LIJ Trialysis catheter My [...] scale Q4h Ayah Hoang MD Endocrinology Fellow [phone] Cosigned by Ann Boston MD at 06/12/2022 [...] 10-30 mL, 10-30 mL, intra-catheter, PRN, Jeffrey Geren MD docusate (COLACE) 10 mg/mL oral liquid [...] 100 mg, 100 mg, oral, Q8H, Anurag Mortesnen MD insulin glargine (LANTUS, SEMGLEE) 100 unit/mL injection 33 Units, 33 Units, subcutaneous, QA, Meme Castro MD, 33 Units at 06/12/22 0837 insulin lispro (HumaLOG, ADMELOG) 100 unit/mL injection 0-10 Units, 0-10 Units, subcutaneous, Q4H [facility], Meme Castro MD, 4 Units at 06/12/22 [...] diaphragm with the tip excluded from the [id number]. Left internal jugular catheter projects at superior [...] scale Q4h Ayah Hoang MD Endocrinology Fellow [phone] Cosigned by Ann Boston MD at 06/12/2022 [...] evaluated the patient during CRRT. Indication for MULTIMEDIA DESIGNER: ESRD Dialysis access: LIJ Trialysis catheter My [...] this interval not displayed. Vonnie Cody MD court worker Division of Nephology Consult 1: After 4 [...] evaluated the patient during CRRT. Indication for MULTIMEDIA DESIGNER: ESRD Dialysis access: LIJ Trialysis catheter My [...] this interval not displayed. Vonnie Cody MD court worker Division of Nephology Consult 1: After 4 PM on , after 12 PM on Monday, and all day Monday, please contact on-call renal fellow at with questions. * Consults, Subsequent - Kellee Magallanes MD - 06/10/2022 1:00 PM CDT Endocrinology & Diabetes Progress Note Patient: Adelia Garvin Jr., 51 y.o. male (: 1970) Room: [place] [address] [address] ( ) LOS: 6 Adelia Garvin Jr. [...] Plan 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, with shelter use of insulin, complicated by ESRD on PD, CAD s/p PCI, CHF - HbA1c 7.4% - Uses Omnipod and Dexcom G6 at home, not currently on this- doesn't have the supplies -On significantly higher basal rates on pump at night due to peritoneal dialysis -home settings: Basal rate 0330 >>1.7 0800 >> 0.8 2000 >> 5.8 ICR1:6.5 ISF1:25 [id number] TIA 4 Recommendations: - Lantus 33 units [...] ## Discharge Planning - Follow-up with home telescope repairer -- Kellee Magallanes MD Endocrinology, Metabolism, & Lipid Research Contact Info: New Consults: [phone]) General Endocrine (Non-Diabetes): [phone] (Check 'Treatment Team' assignment for Diabetes 1 vs 2 vs 3) Diabetes 1: Diabetes Fellow: [phone] Diabetes 2: Dora Delarosa, COMMUNICATION SPECIALIST: [phone] Diabetes 3: See Treatment Team Provider (or [...] discussion with the patient. Bryce Langley MD, [facility] Hand Developercourt worker Division of Endocrinology, Metabolism & Lipid Research [...] unit/mL injection 33 Units 33 Units subcutaneous [facility] Meme Castro MD 33 Units at 06/10/22 0847 insulin lispro (HumaLOG, ADMELOG) 100 unit/mL injection 0-10 Units 0-10 Units subcutaneous Q4H [facility] Meme Castro MD 2 Units at 06/10/22 [...] chloride 0.9% infusion 10 mL/hr intravenous Continuous Cahmp Osborne MD PhD 10 mL/hr at 06/09/22 [...] evaluated the patient during CRRT. Indication for MULTIMEDIA DESIGNER: ESRD Dialysis access: LIJ Trialysis catheter My [...] this interval not displayed. Vonnie Cody MD court worker Division of Nephology Consult 1: After 4 [...] y.o. male (: 1970) Room: [place] [address] [address] ( ) LOS: 5 Adelia Garvin Jr. is a 51 y.o. male with PMHx CHF (EF 50% in 2017), atrial fibrillation not on OAC, HTN/HLD, CAD s/p PCI, ESRD on PD, hyperparathyroidism presenting with weakness, N/V, diarrhea and chest pain. He is scheduled for [facility] on 06/06. 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, with intermediate accountant use of insulin, complicated by ESRD on PD, CAD s/p PCI, CHF - HbA1c 7.4% - Uses Omnipod and Dexcom G6 at home, not currently on this- doesn't have the supplies -On significantly higher basal rates on pump at night due to peritoneal dialysis -home settings: Basal rate 0330 >>1.7 0800 >> 0.8 2000 >> 5.8 ICR1:6.5 ISF1:25 [id number] TIA 4 Recommendations: - Lantus 33 units [...] ## Discharge Planning - Follow-up with home telescope repairer -- Kellee Magallanes MD Endocrinology, Metabolism, & Lipid Research Contact Info: New Consults: [phone]) General Endocrine (Non-Diabetes): [phone] (Check 'Treatment Team' assignment for Diabetes 1 vs 2 vs 3) Diabetes 1: Diabetes Fellow: [phone] Diabetes 2: Dora Delarosa, COMMUNICATION SPECIALIST: [phone] Diabetes 3: See Treatment Team Provider (or [...] discussion with the patient. Bryce Langley MD, [facility] Hand Developercourt worker Division of Endocrinology, Metabolism & Lipid Research [...] y.o. male (: 1970) Room: [place] [address] [address] ( ) LOS: 4 Adelia Garvin Jr. [...] Plan 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, with shelter use of insulin, complicated by ESRD on PD, CAD s/p PCI, CHF - HbA1c 7.4% - Uses Omnipod and Dexcom G6 at home, not currently on this- doesn't have the supplies -On significantly higher basal rates on pump at night due to peritoneal dialysis -home settings: Basal rate 0330 >>1.7 0800 >> 0.8 2000 >> 5.8 ICR1:6.5 ISF1:25 [id number] TIA 4 Recommendations: - Lantus 33 units [...] ## Discharge Planning - Follow-up with home telescope repairer -- Kellee Magallanes MD Endocrinology, Metabolism, & Lipid Research Contact Info: New Consults: [phone]) General Endocrine (Non-Diabetes): [phone] (Check 'Treatment Team' assignment for Diabetes 1 vs 2 vs 3) Diabetes 1: Diabetes Fellow: [phone] Diabetes 2: Dora Delarosa, COMMUNICATION SPECIALIST: [phone] Diabetes 3: See Treatment Team Provider (or [...] evaluated the patient during CRRT. Indication for MULTIMEDIA DESIGNER: ESRD Dialysis access: LIJ Trialysis catheter My [...] -- 4.7* 7.2* 6.6* Vonnie Cody MD court worker Division of Nephology Consult 1: After 4 PM on , after 12 PM on Monday, and all day Monday, please contact on-call renal fellow at with questions. * Plan of Care - Joyce Begum, MULTIMEDIA DESIGNER - 06/08/2022 3:33 AM CDT Patient on mechanical ventilation. Wean as tolerated. * Plan of Care - Low Cardoso MD - 06/07/2022 4:37 PM CDT Nephrology update note Patient not seen, off the floor for cardiac catheterization Patient reportedly had cardiopulmonary decompensation requiring intubation. Additionally had Impella placed and undergoing ECMO evaluation Trialysis catheter placed while in cardiac mill labor supervisor Given need for aggressive volume removal, will start CVVHDF Low Cardoso MD Nephrology Fellow Consult 2 Service Contact via [employer] Message After 4pm on , after 12pm [...] given. Additionally hypoxic on blood gas. Assisted COURT WORKER team in getting levo and epi gtt started, titrated up to 0.1mcg/kg/min each. Impella placed by interventional cardiology team. CTS at bedside for ECMO evaluation. Cj Yang, CA-3, Anesthesiology [facility] Cosigned by Cody Mendosa MD at 06/08/2022 2:17 PM CDT Associated attestation - Cody Mendosa MD - 06/08/2022 2:17 PM CDT Anesthesia STAT was called while patient in mill labor supervisor for complex PCI. Upon my arrival, he [...] Jr., 51 y.o. male (: 1970) Room: [facility] ROOM/NO* ( ) LOS: [...] Plan 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, with intermediate accountant use of insulin, complicated by ESRD on PD, CAD s/p PCI, CHF - HbA1c 7.4% - Uses Omnipod and Dexcom G6 at home, not currently on this- doesn't have the supplies - - On significantly higher basal rates on pump at night due to peritoneal dialysis -home settings: Basal rate 0330 >>1.7 0800 >> 0.8 2000 >> 5.8 ICR1:6.5 ISF1:25 [id number] TIA 4 Recommendations: - Lantus 33 units [...] ## Discharge Planning - Follow-up with home telescope repairer -- Kellee Magallanes MD Endocrinology, Metabolism, & Lipid Research Contact Info: New Consults: [phone]) General Endocrine (Non-Diabetes): [phone] (Check 'Treatment Team' assignment for Diabetes 1 vs 2 vs 3) Diabetes 1: Diabetes Fellow: [phone] Diabetes 2: Dora Delarosa, COMMUNICATION SPECIALIST: [phone] Diabetes 3: See Treatment Team Provider (or [...] monitor VS, improve oxygenation status, go to mill labor supervisor for LHC today,possibly do another scan for [...] Thank you, SIL Avilez, RN, CCDS Email: [email or web address] * Consults, Subsequent - Low [...] 06/06/22 0659 06/06/22699 - 06/07/22 0659 Shift 8815-4255 6683-5893 24 Hour Total 4811-0985 8970-5504 24 Hour Total INTAKE P.O. 60 60 450 450 I.V.(mL/kg) 443.1(3.1) 443.1(3.1) 147.7(1) 147.7(1) Other 30016 23939 52848 IV Piggyback 105 105 Shift Total(mL/kg) 65024(84.2) 87199.1(86.1) 04538.1(170.3) 597.7(4.2) 597.7(4.2) OUTPUT Urine(mL/kg/hr) 0(0) 6(0) 6(0) 0 0 Other 24646 23516 04950 Stool 0 0 Shift Total(mL/kg) 40157(87.7) 28664(98.3) 94075(186) 0(0) 0(0) NET -498 -1729.9 -2227.9 597.7 [...] Nephrology Fellow Consult 2 Service Contact via [employer] Message After 4pm on , after 12pm [...] Ghazala Lepe MD * Consults, Subsequent - Kelele Magallanes MD - 06/06/2022 12:23 PM CDT Endocrinology & Diabetes Progress Note Patient: Adelia Garvin Jr., 51 y.o. male (: 1970) Room: [id number] ( ) LOS: 2 Adelia Garvin Jr. [...] Plan 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, with intermediate accountant use of insulin, complicated by ESRD on PD, CAD s/p PCI, CHF - HbA1c 7.4% - Uses Omnipod and Dexcom G6 at home, not currently on this- doesn't have the supplies - - On significantly higher basal rates on pump at night due to peritoneal dialysis -home settings: Basal rate 0330 >>1.7 0800 >> 0.8 2000 >> 5.8 ICR1:6.5 ISF1:25 [id number] TIA 4 Recommendations: - Lantus 33 units [...] ## Discharge Planning - Follow-up with home telescope repairer -- Kellee Magallanes MD Endocrinology, Metabolism, & Lipid Research Contact Info: New Consults: [phone]) General Endocrine (Non-Diabetes): [phone] (Check 'Treatment Team' assignment for Diabetes 1 vs 2 vs 3) Diabetes 1: Diabetes Fellow: [phone] Diabetes 2: Dora Delarosa, COMMUNICATION SPECIALIST: [phone] Diabetes 3: See Treatment Team Provider (or [...] Shift: Monitor VS and keep SBP 140-160, 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 Pt denied other needs stating he has good support from his brother and son. SÁNCHEZ Virk, FELLMONGERY WORKER * Plan of Care - Manisha Wong [...] POCT GLUCOSE DEVICE Routine 06/29/2022 11:51 AM BUS [employer]OLLEY [employer] TAXI INSTRUCTOR POCT GLUCOSE DEVICE Routine 06/29/2022 7 :43 AM BUS [employer]OLLEY AND TAXI INSTRUCTOR POCT GLUCOSE DEVICE Routine 06/28/2022 8 :08 PM BUS [employer]OLLEY [employer] TAXI INSTRUCTOR COVID-19 CORONAVIRUS RNA Routine 06/28/2022 3:46 PM BUS [employer]OLLEY AND TAXI INSTRUCTOR POCT GLUCOSE DEVICE Routine 06/28/2022 3 :33 PM BUS [employer]OLLEY AND TAXI INSTRUCTOR POCT GLUCOSE DEVICE Routine 06/28/2022 11:42 AM BUS TROLLEY AND TAXI INSTRUCTOR POCT GLUCOSE DEVICE Routine 06/28/2022 9 :53 AM BUS [employer]OLLEY AND TAXI INSTRUCTOR POCT GLUCOSE DEVICE Routine 06/28/2022 8 :37 AM BUS TROLLEY AND TAXI INSTRUCTOR POCT GLUCOSE DEVICE Routine 06/28/2022 8 :20 AM BUS [employer]OLLEY AND TAXI INSTRUCTOR POCT GLUCOSE DEVICE Routine 06/28/2022 8 :02 AM BUS [employer]OLLEY AND TAXI INSTRUCTOR POCT GLUCOSE DEVICE Routine 06/28/2022 7 :41 AM BUS TROLLEY AND TAXI INSTRUCTOR POCT GLUCOSE DEVICE Routine 06/27/2022 7 :51 PM BUS TROLLEY AND TAXI INSTRUCTOR POCT GLUCOSE DEVICE Routine 06/27/2022 4 :54 PM BUS TROLLEY AND TAXI INSTRUCTOR POCT GLUCOSE DEVICE Routine 06/27/2022 11:37 AM BUS TROLLEY AND TAXI INSTRUCTOR POCT GLUCOSE DEVICE Routine 06/27/2022 7 :54 AM BUS TROLLEY AND TAXI INSTRUCTOR EGFR Routine 06/27/2022 3:51 AM BUS TROLLEY AND TAXI INSTRUCTOR CBC WITHOUT DIFFERENTIAL Routine 06/27/2022 3:51 AM BUS TROLLEY AND TAXI INSTRUCTOR BASIC METABOLIC PANEL Routine 06/27/2022 3:51 AM BUS TROLLEY AND TAXI INSTRUCTOR POCT GLUCOSE DEVICE Routine 06/27/2022 1 :54 AM BUS TROLLEY AND TAXI INSTRUCTOR POCT GLUCOSE DEVICE Routine 06/26/2022 9 :14 PM BUS TROLLEY AND TAXI INSTRUCTOR POCT GLUCOSE DEVICE Routine 06/26/2022 5 :53 PM BUS TROLLEY AND TAXI INSTRUCTOR POCT GLUCOSE DEVICE Routine 06/26/2022 1 :16 PM BUS TROLLEY AND TAXI INSTRUCTOR POCT GLUCOSE DEVICE Routine 06/26/2022 11:09 AM BUS TROLLEY AND TAXI INSTRUCTOR POCT GLUCOSE DEVICE Routine 06/26/2022 9 :07 AM BUS TROLLEY AND TAXI INSTRUCTOR POCT GLUCOSE DEVICE Routine 06/26/2022 7 :25 AM BUS TROLLEY AND TAXI INSTRUCTOR EGFR Routine 06/26/2022 3:23 AM BUS TROLLEY AND TAXI INSTRUCTOR CBC WITHOUT DIFFERENTIAL Routine 06/26/2022 3:23 AM BUS TROLLEY AND TAXI INSTRUCTOR BASIC METABOLIC PANEL Routine 06/26/2022 3:23 AM BUS TROLLEY AND TAXI INSTRUCTOR POCT GLUCOSE DEVICE Routine 06/26/2022 1 :32 [...] VIDEO IP Routine 06/21/2022 2:06 PM CDT WORLD GEOGRAPHY TEACHER EVALUATE AND TREAT VIDEOFLUOROSCOPIC SWALLOW STUDY Routine [...] DEVICE Routine 06/17/2022 7 :40 PM CDT NM INSJ NON-TUNNELED CENTRAL VENOUS CATH AGE 5 [...] METABOLIC PANEL STAT 06/07/2022 10:58 PM CDT NM ARTL CATHJ/CANNULJ MNTR/TRANSFUSION SPX PRQ Routine 06/07/2022 [...] EGFR STAT 06/05/2022 3:22 PM CDT POCT [id number]-HCT,WB - ISTAT Routine 06/05/2022 3:22 PM CDT [...] * (ABNORMAL) POCT glucose (06/29/2022 11:51 AM BUS TROLLEY AND TAXI INSTRUCTOR) Glucose, POC 302(H) 70 - 199 mg/dL [facility] Blood 06/29/2022 11:5 1 AM BUS TROLLEY AND TAXI INSTRUCTOR 06/29/2022 11:51 AM BUS TROLLEY AND TAXI INSTRUCTOR us Frank Bowers MD LAB POCT ORDERABLES - DEVICE F inal Result [facility] One [facility] Department of Laboratories [place], [place] [id number] * (ABNORMAL) POCT glucose (06/29/2022 7:43 AM BUS TROLLEY AND TAXI INSTRUCTOR) Glucose, POC 262(H) 70 - 199 mg/dL [facility] Glucose comment 1 Glu2: RN/ Notified [facility] Blood 06/29/2022 7:43 AM BUS TROLLEY AND TAXI INSTRUCTOR 06/29/2022 7:43 AM BUS TROLLEY AND TAXI INSTRUCTOR us Frank Bowers MD LAB POCT ORDERABLES - DEVICE F inal Result Performing Organization Address City/[facility] Co de Phone Number [facility] [place] [address] * (ABNORMAL) POCT glucose (06/28/2022 8:08 PM BUS TROLLEY AND TAXI INSTRUCTOR) Pathologist [facility] [place] Glucose, POC 260(H) 70 - 199 mg/dL [facility] Blood 06/28/2022 8:0 8 PM BUS TROLLEY AND TAXI INSTRUCTOR 06/28/2022 8:08 PM BUS TROLLEY AND TAXI INSTRUCTOR Frank Bowers MD LAB POCT ORDERABLES - DEVICE F inal Result Performing Organization Address [facility] de Phone Number [facility] Department [place] [address] * COVID-19 Coronavirus RNA Nasopharyngeal (06/28/2022 3:46 PM BUS TROLLEY AND TAXI INSTRUCTOR) [facility] COVID-19 RNA Negative Negative [facility] Nasopharyngeal 06/28/2022 3: 46 PM BUS TROLLEY AND TAXI INSTRUCTOR 06/28/2022 4:22 PM BUS TROLLEY AND TAXI INSTRUCTOR Narrative [facility] - 06/28/2022 5:03 PM BUS TROLLEY AND TAXI INSTRUCTOR Is the patient experiencing any symptoms consistent with COVID (eg. Fever, cough, shortness of breath)?->No What is the reason for testing?->Placement in post-acute care setting (Rapid) ??Interpretive data: Synonyms for this test include: PCR and NAAT . ??This test is performed using the [employer] Xpert Xpress plus assay. This is a [...] . ??This test is performed using the [employer] Xpert Xpress plus assay. This is a [...] ORD ERABLES Final Result Performing Organization Address [facility] Co de Phone Number [facility] Department [place] [address] * (ABNORMAL) POCT glucose (06/28/2022 3:33 PM BUS TROLLEY AND TAXI INSTRUCTOR) Glucose, POC 299(H) 70 - 199 mg/dL [facility] Blood 06/28/2022 3:33 PM BUS TROLLEY AND TAXI INSTRUCTOR 06/28/2022 3:33 PM BUS TROLLEY AND TAXI INSTRUCTOR Frank Bowers MD LAB POCT ORDERABLES - DEVICE F inal Result Performing Organization Address [place]/[facility] de Phone Number [facility] Department [place] [address] * (ABNORMAL) POCT glucose (06/28/2022 11:42 AM BUS TROLLEY AND TAXI INSTRUCTOR) Glucose, POC 281(H) 70 - 199 mg/dL [facility] Glucose comment 1 Glu2: RN/MD Notified [facility] Blood 06/28/2022 11:4 2 AM BUS TROLLEY AND TAXI INSTRUCTOR 06/28/2022 11:42 AM BUS TROLLEY AND TAXI INSTRUCTOR Frank Bowers MD LAB POCT ORDERABLES - DEVICE F inal Result Performing Organization Address [facility] Co de Phone Number [facility] [place] [address] * POCT glucose (06/28/2022 9:53 AM BUS TROLLEY AND TAXI INSTRUCTOR) Glucose, POC 181 70 - 199 mg/dL [facility] Blood 06/28/2022 9:53 AM BUS TROLLEY AND TAXI INSTRUCTOR 06/28/2022 9:53 AM BUS TROLLEY AND TAXI INSTRUCTOR Frank Bowers MD LAB POCT ORDERABLES - DEVICE F inal Result Performing Organization Address [facility] [place] [address] * POCT glucose (06/28/2022 8:37 AM BUS TROLLEY AND TAXI INSTRUCTOR) Glucose, POC 121 70 - 199 mg/dL [facility] Blood 06/28/2022 8:37 AM BUS TROLLEY AND TAXI INSTRUCTOR 06/28/2022 8:37 AM BUS TROLLEY AND TAXI INSTRUCTOR Frank Bowers MD LAB POCT ORDERABLES - DEVICE F inal Result Performing Organization Address [facility] Co de Phone Number [facility] Department [place] [address] * POCT glucose (06/28/2022 8:20 AM BUS TROLLEY AND TAXI INSTRUCTOR) Glucose, POC 95 70 - 199 mg/dL [facility] Blood 06/28/2022 8:20 AM BUS TROLLEY AND TAXI INSTRUCTOR 06/28/2022 8:20 AM BUS [employer]OLLEY AND TAXI INSTRUCTOR us Frank Bowers MD LAB POCT ORDERABLES - DEVICE F inal Result Performing Organization Address City/[facility] Co de Phone Number [facility] [place] [address] * POCT glucose (06/28/2022 8:02 AM BUS TROLLEY AND TAXI INSTRUCTOR) Glucose, POC 75 70 - 199 mg/dL [facility] Blood 06/28/2022 8:02 AM BUS TROLLEY AND TAXI INSTRUCTOR 06/28/2022 8:02 AM BUS TROLLEY AND TAXI INSTRUCTOR Frank Bowers MD LAB POCT ORDERABLES - DEVICE F inal Result Performing Organization Address [facility] de Phone Number [facility] [place] [address] * (ABNORMAL) POCT glucose (06/28/2022 7:41 AM BUS TROLLEY AND TAXI INSTRUCTOR) Glucose, POC 68(L) 70 - 199 mg/dL [facility] Glucose comment 1 Glu2: RN/MD Notified [facility] Blood 06/28/2022 7:41 AM BUS TROLLEY AND TAXI INSTRUCTOR 06/28/2022 7:41 AM BUS [employer]OLLEY AND TAXI INSTRUCTOR Frank Bowers MD LAB POCT ORDERABLES - DEVICE F inal Result Performing Organization Address [facility] Co de Phone Number [facility] [place] [address] * POCT glucose (06/27/2022 7:51 PM BUS TROLLEY AND TAXI INSTRUCTOR) Glucose, POC 199 70 - 199 mg/dL [facility] Blood 06/27/2022 7:51 PM BUS TROLLEY AND TAXI INSTRUCTOR 06/27/2022 7:51 PM BUS TROLLEY AND TAXI INSTRUCTOR Carey East MD LAB POCT ORDERABLES - DEVICE Final Result Performing Organization Address [facility] Co de Phone Number [facility] [place] [address] * POCT glucose (06/27/2022 4:54 PM BUS TROLLEY AND TAXI INSTRUCTOR) Glucose, POC 143 70 - 199 mg/dL [facility] Blood 06/27/2022 4:54 PM BUS TROLLEY AND TAXI INSTRUCTOR 06/27/2022 4:54 PM BUS TROLLEY AND TAXI INSTRUCTOR Carey East MD LAB POCT ORDERABLES - DEVICE Final Result Performing Organization Address [facility] de Phone Number [facility] [place] [address] * (ABNORMAL) POCT glucose (06/27/2022 11:37 AM BUS TROLLEY AND TAXI INSTRUCTOR) [facility] Glucose, POC 228(H) 70 - 199 mg/dL [facility] Glucose comment 1 Glu2: RN/MD Notified [facility] Blood 06/27/2022 11:3 7 AM BUS TROLLEY AND TAXI INSTRUCTOR 06/27/2022 11:37 AM BUS [employer]OLLEY AND TAXI INSTRUCTOR Carey East MD LAB POCT ORDERABLES - DEVICE Final Result Performing Organization Address [facility] de Phone Number [facility] [place] [address] * (ABNORMAL) POCT glucose (06/27/2022 7:54 AM BUS TROLLEY AND TAXI INSTRUCTOR) [facility] Glucose, POC 350(H) 70 - 199 mg/dL [facility] Blood 06/27/2022 7:54 AM BUS TROLLEY AND TAXI INSTRUCTOR 06/27/2022 7:54 AM BUS [employer]OLLEY AND TAXI INSTRUCTOR Carey East MD LAB POCT ORDERABLES - DEVICE Final Result Performing Organization Address [facility] [place] [address] * (ABNORMAL) eGFR (06/27/2022 3:51 AM BUS TROLLEY AND TAXI INSTRUCTOR) [facility] eGFR 6(L) 90 - 130 mL/min/1. 73 m2 [facility] Comment: Interpretive Data Reference Interval Normal [...] last reviewed 2021. Blood 06/27/2022 3:51 AM BUS TROLLEY AND TAXI INSTRUCTOR 06/27/2022 4:28 AM BUS TROLLEY AND TAXI INSTRUCTOR us Carey East MD LAB BLOOD ORDERABLES Final Result [facility] One [facility] Department [place] [address] * (ABNORMAL) CBC without differential (06/27/2022 3:51 AM BUS TROLLEY AND TAXI INSTRUCTOR) Pathologist [facility] [place] WBC 3.8 3.8 - 9.9 K/cumm [facility] Hgb 7.5(L) 13.0 - 17.5 g/dL [facility] Hct 22.8(L) 38.9 - 50.3 % [facility] Plt 294 150 - 400 K/cumm [facility] MPV 10.0 9.1 - 12.3 fL [facility] RBC 2.49(L) 4.30 - 5.80 M/cumm [facility] MCV 91.6 81.3 - 96.4 fL [facility] MCH 30.1 27.1 - 33.3 pg [facility] MCHC 32.9 32.3 - 35.7 g/dL [facility] RDW CV 17.5(H) 11.1 - 14.9 % [facility] RDW SD 57.9(H) 35.7 - 48.1 fL [facility] NRBC abs 0.00 0.00 - 0.01 K/cumm [facility] Blood 06/27/2022 3:51 AM BUS [employer]OLLEY AND TAXI INSTRUCTOR 06/27/2022 4:28 AM BUS [employer]LEY [employer] TAXI INSTRUCTOR us Carey East MD LAB BLOOD ORDERABLES Final Result [facility] One [facility] Department [place] [address] * (ABNORMAL) Basic metabolic panel (06/27/2022 3:51 AM BUS [employer] TAXI INSTRUCTOR) Sodium 132(L) 135 - 145 mmol/L [facility] Potassium, pl 3.1(L) 3.3 - 4.9 mmol/L [facility] Chloride 89(L) 97 - 110 mmol/L [facility] CO2 26 22 - 32 mmol/L [facility] Anion gap 17(H) 2 - 15 mmol/L [facility] BUN 46(H) 8 - 25 mg/dL [facility] Creatinine 10.21(H) 0.80 - 1.30 mg/dL [facility] Glucose 274(H) 70 - 199 mg/dL [facility] Comment: Interpretive Data Fasting glucose [...] 2017. Calcium 8.4(L) 8.5 - 10.3 mg/dL [facility] Blood 06/27/2022 3:51 AM BUS [employer]OLLEY AND TAXI INSTRUCTOR 06/27/2022 4:28 AM BUS [employer]OLLEY AND TAXI INSTRUCTOR Carey East MD LAB BLOOD ORDERABLES Final Result Performing Organization Address City/[facility] Co de Phone Number [facility] [place] [address] * (ABNORMAL) POCT glucose (06/27/2022 1:54 AM BUS [employer]OLLEY AND TAXI INSTRUCTOR) Glucose, POC 276(H) 70 - 199 mg/dL [facility] Blood 06/27/2022 1:54 AM BUS [employer]LEY AND TAXI INSTRUCTOR 06/27/2022 1:54 AM BUS [employer]OLLEY AND TAXI INSTRUCTOR Carey East MD LAB POCT ORDERABLES - DEVICE Final Result Performing Organization Address [facility] Co de Phone Number [facility] [place] [address] * POCT glucose (06/26/2022 9:14 PM BUS TROLLEY AND TAXI INSTRUCTOR) Glucose, POC 184 70 - 199 mg/dL [facility] Blood 06/26/2022 9:14 PM BUS [employer]OLLEY AND TAXI INSTRUCTOR 06/26/2022 9:14 PM BUS [employer]OLLEY AND TAXI INSTRUCTOR Carey East MD LAB POCT ORDERABLES - DEVICE Final Result Performing Organization Address City/[facility] Co de Phone Number [facility] [place] [address] * POCT glucose (06/26/2022 5:53 PM BUS TROLLEY AND TAXI INSTRUCTOR) Glucose, POC 98 70 - 199 mg/dL [facility] Blood 06/26/2022 5:53 PM BUS [employer]OLLEY AND TAXI INSTRUCTOR 06/26/2022 5:53 PM BUS [employer]OLLEY AND TAXI INSTRUCTOR Carey East MD LAB POCT ORDERABLES - DEVICE Final Result Performing Organization Address [facility] Co de Phone Number [facility] [place] [address] * (ABNORMAL) POCT glucose (06/26/2022 1:16 PM BUS [employer]OLLEY [employer] TAXI INSTRUCTOR) Glucose, POC 202(H) 70 - 199 mg/dL [facility] Blood 06/26/2022 1:16 PM BUS [employer]OLLEY AND TAXI INSTRUCTOR 06/26/2022 1:16 PM [employer]OLLEY [employer] TAXI INSTRUCTOR Carey East MD LAB POCT ORDERABLES - DEVICE Final Result Performing Organization Address [facility] [place] [address] * (ABNORMAL) POCT glucose (06/26/2022 11:09 AM [employer]) Glucose, POC 320(H) 70 - 199 mg/dL [facility] Glucose comment 1 Glu2: RN/MD Notified [facility] Blood 06/26/2022 11:0 9 AM [employer] 06/26/2022 11:09 AM [employer] Carey East MD LAB POCT ORDERABLES - DEVICE Final Result Performing Organization Address [facility] [place] [address] * (ABNORMAL) POCT glucose (06/26/2022 9:07 AM [employer]) Glucose, POC 400(H) 70 - 199 mg/dL [facility] Blood 06/26/2022 9:07 AM [employer] 06/26/2022 9:07 AM [employer] Carey East MD LAB POCT ORDERABLES - DEVICE Final Result Performing Organization Address [facility] Co de Phone Number [facility] [place] [address] * (ABNORMAL) POCT glucose (06/26/2022 7:25 AM [employer]) Pathologist [facility] [place] Glucose, POC 393(H) 70 - 199 mg/dL [facility] Glucose comment 1 Glu2: RN/MD Notified [facility] Blood 06/26/2022 7:25 AM [employer] 06/26/2022 7:25 AM [employer] Carey East MD LAB POCT ORDERABLES - DEVICE Final Result Performing Organization Address [facility] de Phone Number [facility] [place] [address] * (ABNORMAL) eGFR (06/26/2022 3:23 AM [employer]) Pathologist [facility] [place] eGFR 5(L) 90 - 130 mL/min/1. 73 m2 [facility] Comment: Interpretive Data Reference Interval Normal [...] last reviewed 2021. Blood 06/26/2022 3:23 AM [employer] 06/26/2022 5:00 AM [employer] us Carey East MD LAB BLOOD ORDERABLES Final Result Performing Organization Address City/[facility] Co de Phone Number [facility] One [facility] Department [place] [address] * (ABNORMAL) CBC without differential (06/26/2022 3:23 AM [employer]) WBC 4.1 3.8 - 9.9 K/cumm [facility] Hgb 7.6(L) 13.0 - 17.5 g/dL [facility] Hct 23.3(L) 38.9 - 50.3 % [facility] Plt 250 150 - 400 K/cumm [facility] MPV 10.7 9.1 - 12.3 fL [facility] RBC 2.49(L) 4.30 - 5.80 M/cumm [facility] MCV 93.6 81.3 - 96.4 fL [facility] MCH 30.5 27.1 - 33.3 pg [facility] MCHC 32.6 32.3 - 35.7 g/dL [facility] RDW CV 17.8(H) 11.1 - 14.9 % [facility] RDW SD 59.3(H) 35.7 - 48.1 fL [facility] NRBC abs 0.00 0.00 - 0.01 K/cumm [facility] Blood 06/26/2022 3:23 AM [employer] 06/26/2022 5:00 AM [employer] Carey East MD LAB BLOOD ORDERABLES Final Result [facility] Department [place] [address] * (ABNORMAL) Basic metabolic panel (06/26/2022 3:23 AM [employer]) Sodium 134(L) 135 - 145 mmol/L [facility] Potassium, pl 3.6 3.3 - 4.9 mmol/L [facility] Chloride 91(L) 97 - 110 mmol/L [facility] CO2 26 22 - 32 mmol/L [facility] Anion gap 17(H) 2 - 15 mmol/L [facility] BUN 47(H) 8 - 25 mg/dL [facility] Creatinine 10.28(H) 0.80 - 1.30 mg/dL [facility] Glucose 335(H) 70 - 199 mg/dL [facility] Comment: Interpretive Data Fasting glucose [...] 2017. Calcium 8.5 8.5 - 10.3 mg/dL [facility] Blood 06/26/2022 3:23 AM [employer] 06/26/2022 5:00 AM [employer] Carey East MD LAB BLOOD ORDERABLES Final Result Performing Organization Address City/[facility]/ZIP Co de Phone Number [facility] Billie [facility] Department [place] [address] * (ABNORMAL) POCT glucose (06/26/2022 1:32 AM CDT) Glucose, POC 334(H) 70 - 199 mg/dL [facility] Blood 06/26/2022 1:32 AM CDT 06/26/2022 1:32 AM CDT Carey East MD LAB POCT ORDERABLES - DEVICE Final Result Performing Organization Address [facility] Co de Phone Number [facility] [place] [address] * (ABNORMAL) POCT glucose (06/25/2022 9:02 PM CDT) Glucose, POC 257(H) 70 - 199 mg/dL [facility] Blood 06/25/2022 9:02 PM CDT 06/25/2022 9:02 PM CDT Carey East MD LAB POCT ORDERABLES - DEVICE Final Result Performing Organization Address [facility] Co de Phone Number [facility] [place] [address] * (ABNORMAL) POCT glucose (06/25/2022 6:30 PM CDT) Glucose, POC 223(H) 70 - 199 mg/dL [facility] Blood 06/25/2022 6:30 PM CDT 06/25/2022 6:30 PM CDT Carey East MD LAB POCT ORDERABLES - DEVICE Final Result Performing Organization Address [facility] [place] [address] * (ABNORMAL) POCT glucose (06/25/2022 4:21 PM CDT) Glucose, POC 241(H) 70 - 199 mg/dL [facility] Glucose comment 1 Glu2: RN/MD Notified [facility] Blood 06/25/2022 4:21 PM CDT 06/25/2022 4:21 PM CDT Carey East MD LAB POCT ORDERABLES - DEVICE Final Result Performing Organization Address [facility] de Phone Number [facility] [place] [address] * (ABNORMAL) POCT glucose (06/25/2022 11:42 AM CDT) Glucose, POC 296(H) 70 - 199 mg/dL [facility] Glucose comment 1 Glu2: RN/MD Notified [facility] Blood 06/25/2022 11:4 2 AM CDT 06/25/2022 11:42 AM CDT Carey East MD LAB POCT ORDERABLES - DEVICE Final Result Performing Organization Address [facility] de Phone Number [facility] [place] [address] * (ABNORMAL) POCT glucose (06/25/2022 7:42 AM CDT) Glucose, POC 363(H) 70 - 199 mg/dL [facility] Glucose comment 1 Glu2: RN/MD Notified [facility] Blood 06/25/2022 7:42 AM CDT 06/25/2022 7:42 AM CDT Carey East MD LAB POCT ORDERABLES - DEVICE Final Result Performing Organization Address [facility] [place] [address] * (ABNORMAL) eGFR (06/25/2022 4:36 AM CDT) eGFR 6(L) 90 - 130 mL/min/1. 73 m2 [facility] Comment: Interpretive Data Reference Interval Normal [...] City/State/[facility] Co de Phone Number [facility] One [facility] Department [place] [address] * (ABNORMAL) Phosphorus (06/25/2022 4:36 AM CDT) Phosphorus, pl 7.9(H) 2.3 - 4.5 mg/dL [facility] Comment:Reviewed Blood 06/25/2022 4:36 AM CDT 06/25/2022 5:15 AM CDT Carey East MD LAB BLOOD ORDERABLES Final Result [facility] Department [place] [address] * (ABNORMAL) Basic metabolic panel (06/25/2022 4:36 AM CDT) Pathologist [facility] [place] Sodium 135 135 - 145 mmol/L [facility] Potassium, pl 3.9 3.3 - 4.9 mmol/L [facility] Chloride 93(L) 97 - 110 mmol/L [facility] CO2 28 22 - 32 mmol/L [facility] Anion gap 14 2 - 15 mmol/L [facility] BUN 44(H) 8 - 25 mg/dL [facility] Creatinine 9.57(H) 0.80 - 1.30 mg/dL [facility] Glucose 281(H) 70 - 199 mg/dL [facility] Comment: Interpretive Data Fasting glucose [...] 2017. Calcium 8.6 8.5 - 10.3 mg/dL [facility] Blood 06/25/2022 4:36 AM CDT 06/25/2022 5:15 AM CDT Carey East MD LAB BLOOD ORDERABLES Final Result Performing Organization Address City/[facility]/ZIP Co de Phone Number [facility]ANDRA [facility] Department [place] [address] * (ABNORMAL) POCT glucose (06/25/2022 1:41 AM CDT) Glucose, POC 265(H) 70 - 199 mg/dL [facility] Blood 06/25/2022 1:41 AM CDT 06/25/2022 1:41 AM CDT Carey East MD LAB POCT ORDERABLES - DEVICE Final Result Performing Organization Address [facility] Co de Phone Number [facility] [place] [employer] [address] * (ABNORMAL) POCT glucose (06/24/2022 8:01 PM CDT) Glucose, POC 246(H) 70 - 199 mg/dL [facility] Blood 06/24/2022 8:01 PM CDT 06/24/2022 8:01 PM CDT Carey East MD LAB POCT ORDERABLES - DEVICE Final Result Performing Organization Address [facility] Co de Phone Number [facility] [place] [place] [address] * POCT glucose (06/24/2022 4:55 PM CDT) Glucose, POC 185 70 - 199 mg/dL [facility] Blood 06/24/2022 4:55 PM CDT 06/24/2022 4:55 PM CDT Carey East MD LAB POCT ORDERABLES - DEVICE Final Result Performing Organization Address City/[facility] Co de Phone Number [facility] [place] [address] * (ABNORMAL) POCT glucose (06/24/2022 12:53 PM CDT) Glucose, POC 275(H) 70 - 199 mg/dL [facility] Glucose comment 1 Glu2: RN/MD Notified [facility] Blood 06/24/2022 12:5 3 PM CDT 06/24/2022 12:53 PM CDT Carey East MD LAB POCT ORDERABLES - DEVICE Final Result Performing Organization Address [facility] Co de Phone Number [facility] [place] [address] * (ABNORMAL) POCT glucose (06/24/2022 11:31 AM CDT) Glucose, POC 346(H) 70 - 199 mg/dL [facility] Glucose comment 1 Glu2: RN/MD Notified [facility] Blood 06/24/2022 11:3 1 AM CDT 06/24/2022 11:31 AM CDT Carey East MD LAB POCT ORDERABLES - DEVICE Final Result Performing Organization Address [facility] Co de Phone Number [facility] [place] [address] * (ABNORMAL) POCT glucose (06/24/2022 9:54 AM CDT) Glucose, POC 411(H) 70 - 199 mg/dL [facility] Blood 06/24/2022 9:54 AM CDT 06/24/2022 9:54 AM CDT Carey East MD LAB POCT ORDERABLES - DEVICE Final Result Performing Organization Address City/[facility] [place] [address] * (ABNORMAL) POCT glucose (06/24/2022 7:33 AM CDT) Glucose, POC 415(H) 70 - 199 mg/dL [facility] Glucose comment 1 Glu2: RN/ Notified [facility] Blood 06/24/2022 7:33 AM CDT 06/24/2022 7:33 AM CDT Carey East MD LAB POCT ORDERABLES - DEVICE Final Result Performing Organization Address City/State/[facility] Co de Phone Number [facility] One [facility] Department [place] [address] * (ABNORMAL) eGFR (06/24/2022 4:10 AM CDT) eGFR 7(L) 90 - 130 mL/min/1. 73 m2 [facility] Comment: Interpretive Data Reference Interval Normal [...] BLOOD ORDERABLES Final Result Performing Organization Address [facility] de Phone Number [facility] Department [place] [address] * (ABNORMAL) CBC without differential (06/24/2022 4:10 AM CDT) Pathologist [facility] [place] WBC 4.3 3.8 - 9.9 K/cumm [facility] Hgb 7.9(L) 13.0 - 17.5 g/dL [facility] Hct 24.0(L) 38.9 - 50.3 % [facility] Plt 206 150 - 400 K/cumm [facility] MPV 10.3 9.1 - 12.3 fL [facility] RBC 2.61(L) 4.30 - 5.80 M/cumm [facility] MCV 92.0 81.3 - 96.4 fL [facility] MCH 30.3 27.1 - 33.3 pg [facility] MCHC 32.9 32.3 - 35.7 g/dL [facility] RDW CV 18.5(H) 11.1 - 14.9 % [facility] RDW SD 58.3(H) 35.7 - 48.1 fL [facility] NRBC abs 0.00 0.00 - 0.01 K/cumm [facility] Blood 06/24/2022 4:10 AM CDT 06/24/2022 4:34 AM CDT Carey East MD LAB BLOOD ORDERABLES Final Result Performing Organization Address [facility]/ZIP Co de Phone Number [facility] Department [place] [address] * (ABNORMAL) Basic metabolic panel (06/24/2022 4:10 AM CDT) Sodium 134(L) 135 - 145 mmol/L [facility] Potassium, pl 3.9 3.3 - 4.9 mmol/L [facility] Chloride 94(L) 97 - 110 mmol/L [facility] CO2 25 22 - 32 mmol/L [facility] Anion gap 15 2 - 15 mmol/L [facility] BUN 46(H) 8 - 25 mg/dL [facility] Creatinine 8.83(H) 0.80 - 1.30 mg/dL [facility] Glucose 390(H) 70 - 199 mg/dL [facility] Comment: Interpretive Data Fasting glucose [...] 2017. Calcium 8.5 8.5 - 10.3 mg/dL [facility] Blood 06/24/2022 4:10 AM CDT 06/24/2022 4:34 AM CDT Carey East MD LAB BLOOD ORDERABLES Final Result [facility] Department [place] [employer] [address] * (ABNORMAL) POCT glucose (06/24/2022 1:44 AM CDT) [facility] Glucose, POC 389(H) 70 - 199 mg/dL [facility] Blood 06/24/2022 1:44 AM CDT 06/24/2022 1:44 AM CDT Carey East MD LAB POCT ORDERABLES - DEVICE Final Result Performing Organization Address City/[facility]/ZIP Co de Phone Number [facility] Department [place] [address] * (ABNORMAL) POCT glucose (06/24/2022 1:26 AM CDT) Glucose, POC 428(H) 70 - 199 mg/dL [facility] Blood 06/24/2022 1:26 AM CDT 06/24/2022 1:26 AM CDT Carey East MD LAB POCT ORDERABLES - DEVICE Final Result [facility] Department [place] [address] * (ABNORMAL) POCT glucose (06/23/2022 8:49 PM CDT) Glucose, POC 306(H) 70 - 199 mg/dL [facility] Blood 06/23/2022 8:49 PM CDT 06/23/2022 8:49 PM CDT Carey East MD LAB POCT ORDERABLES - DEVICE Final Result Performing Organization Address City/[facility]/ZIP Co de Phone Number [facility] Department [place] [address] * (ABNORMAL) POCT glucose (06/23/2022 7:45 PM CDT) Glucose, POC 284(H) 70 - 199 mg/dL [facility] Blood 06/23/2022 7:45 PM CDT 06/23/2022 7:45 PM CDT Carey East MD LAB POCT ORDERABLES - DEVICE Final Result [facility] [place] [address] * POCT glucose (06/23/2022 5:57 PM CDT) Glucose, POC 180 70 - 199 mg/dL [facility] Blood 06/23/2022 5:57 PM CDT 06/23/2022 5:57 PM CDT Carey East MD LAB POCT ORDERABLES - DEVICE Final Result Performing Organization Address [facility] Co de Phone Number [facility] [place] [address] * POCT glucose (06/23/2022 4:48 PM CDT) Glucose, POC 152 70 - 199 mg/dL [facility] Blood 06/23/2022 4:48 PM CDT 06/23/2022 4:48 PM CDT Carey East MD LAB POCT ORDERABLES - DEVICE Final Result Performing Organization Address [facility] de Phone Number [facility] [place] [address] * POCT glucose (06/23/2022 3:43 PM CDT) Glucose, POC 174 70 - 199 mg/dL [facility] Blood 06/23/2022 3:43 PM CDT 06/23/2022 3:43 PM CDT Carey East MD LAB POCT ORDERABLES - DEVICE Final Result Performing Organization Address [facility] de Phone Number [facility] [place] [address] * (ABNORMAL) POCT glucose (06/23/2022 3:01 PM CDT) Glucose, POC 66(L) 70 - 199 mg/dL [facility] Blood 06/23/2022 3:01 PM CDT 06/23/2022 3:01 PM CDT Carey East MD LAB POCT ORDERABLES - DEVICE Final Result Performing Organization Address City/[facility] Co de Phone Number [facility] Department [place] [address] * (ABNORMAL) eGFR (06/23/2022 2:35 PM CDT) Pathologist [facility] [place] eGFR 7(L) 90 - 130 mL/min/1. 73 m2 [facility] Comment: Interpretive Data Reference Interval Normal [...] BLOOD ORDERABLES Final Result Performing Organization Address City/[facility] Co de Phone Number [facility] One [facility] Department [place] [address] * (ABNORMAL) Basic metabolic panel (06/23/2022 2:35 PM CDT) Pathologist [facility] [place] Sodium 137 135 - 145 mmol/L [facility] Potassium, pl 3.6 3.3 - 4.9 mmol/L [facility] Chloride 96(L) 97 - 110 mmol/L [facility] CO2 25 22 - 32 mmol/L [facility] Anion gap 16(H) 2 - 15 mmol/L [facility] BUN 45(H) 8 - 25 mg/dL [facility] Creatinine 8.33(H) 0.80 - 1.30 mg/dL [facility] Glucose 55(L) 70 - 199 mg/dL [facility] Comment: Interpretive Data Fasting glucose [...] 2017. Calcium 8.3(L) 8.5 - 10.3 mg/dL [facility] Blood 06/23/2022 2:35 PM CDT 06/23/2022 3:04 PM CDT us Carey East MD LAB BLOOD ORDERABLES Final Result [facility] Billie [facility] Department [place] [address] * Differential, auto (06/23/2022 2:34 PM CDT) [facility] Neutrophil abs 2.7 1.7 - 6.5 K/cumm [facility] Imm gran abs 0.0 0.0 - 0.1 K/cumm [facility] Lymphocyte abs 1.3 0.8 - 3.3 K/cumm [facility] Monocyte abs 0.8 0.2 - 0.8 K/cumm [facility] Eosinophil abs 0.5 0.0 - 0.5 K/cumm [facility] Basophil abs 0.0 0.0 - 0.1 K/cumm [facility] Neutrophil pct 50.3 % [facility] Comment: Interpretive Data Percent cell count reference ranges are not reported, since discordance with absolute values may lead to misinterpretation of CBC data. Current Interpretive Data was last revised on 2017. Imm gran pct 0.6 % [facility] Comment: Interpretive Data Percent cell count reference ranges are not reported, since discordance with absolute values may lead to misinterpretation of CBC data. Current Interpretive Data was last revised on 2017. Lymphocyte pct 23.7 % [facility] Comment: Interpretive Data Percent cell count reference ranges are not reported, since discordance with absolute values may lead to misinterpretation of CBC data. Current Interpretive Data was last revised on 2017. Monocyte pct 15.5 % [facility] Comment: Interpretive Data Percent cell count reference ranges are not reported, since discordance with absolute values may lead to misinterpretation of CBC data. Current Interpretive Data was last revised on 2017. Eosinophil pct 9.2 % [facility] Comment: Interpretive Data Percent cell count reference ranges are not reported, since discordance with absolute values may lead to misinterpretation of CBC data. Current Interpretive Data was last revised on 2017. Basophil pct 0.7 % [facility] Comment: Interpretive Data Percent cell count reference ranges are not reported, since discordance with absolute values may lead to misinterpretation of CBC data. Current Interpretive Data was last revised on 2017. Blood 06/23/2022 2:34 PM CDT 06/23/2022 3:14 PM CDT us Carey East MD LAB BLOOD ORDERABLES Final Result [facility] One [facility] Department [place] [address] * (ABNORMAL) CBC with auto differential (06/23/2022 2:34 PM CDT) [facility] WBC 5.4 3.8 - 9.9 K/cumm [facility] Hgb 8.2(L) 13.0 - 17.5 g/dL [facility] Comment:Consistent with ita ent history. Hct 25.2(L) 38.9 - 50.3 % [facility] Plt 215 150 - 400 K/cumm [facility] MPV 10.2 9.1 - 12.3 fL [facility] RBC 2.71(L) 4.30 - 5.80 M/cumm [facility] MCV 93.0 81.3 - 96.4 fL [facility] MCH 30.3 27.1 - 33.3 pg [facility] MCHC 32.5 32.3 - 35.7 g/dL [facility] RDW CV 18.7(H) 11.1 - 14.9 % [facility] RDW SD 57.2(H) 35.7 - 48.1 fL [facility] NRBC abs 0.00 0.00 - 0.01 K/cumm [facility] Blood 06/23/2022 2:34 PM CDT 06/23/2022 3:14 PM CDT Carey East MD LAB BLOOD ORDERABLES Final Result [facility] One [facility] Department [place] [address] * (ABNORMAL) Troponin I high-sensitivity 2-hour (06/23/2022 2:34 PM CDT) [facility] Trop I hs 3,636(C) <=35 ng/L [facility] Comment: Previous critical value noted within 48 hours ago. Interpretive Data For further [facility] resources including the diagnostic algorithm and an aid in interpretation, copy and paste this link: [email or web address] Current Interpretive Data last revised 2020. Trop I hs delta See Comment ng/L [facility] Comment:Inappropriate collec tion time to report a delta. Trop I hs pct delta See Comment % [facility] Comment:Inappropriate collec tion time to report a delta. Trop I hs interp See Comment [facility] Comment:Inappropriate collec tion time to report a delta. Blood 06/23/2022 2:34 PM CDT 06/23/2022 3:14 PM CDT Carey East MD LAB BLOOD ORDERABLES Final Result [facility] Department [place] [address] * (ABNORMAL) POCT glucose (06/23/2022 2:25 PM CDT) Glucose, POC 69(L) 70 - 199 mg/dL [facility] Blood 06/23/2022 2:25 PM CDT 06/23/2022 2:25 PM CDT Carey East MD LAB POCT ORDERABLES - DEVICE Final Result Performing Organization Address City/[facility]/ZIP Co de Phone Number [facility] Department [place] [address] * Critical result callback Cardio chemistry (06/23/2022 2:01 PM CDT) Date Notified [id number] [facility] Time Notified 1454 [facility] Test name Trop I hs base [facility] Called/Read Back Fartun [facility] Credentials RN [facility] Called By karen [facility] Blood 06/23/2022 2:01 PM CDT 06/23/2022 2:16 PM CDT Carey East MD LAB BLOOD ORDERABLES Final Result Performing Organization Address [facility] Co de Phone Number ALESSANDRA CARRION Billie [facility] Department [place] [address] * (ABNORMAL) eGFR (06/23/2022 2:01 PM CDT) eGFR 7(L) 90 - 130 mL/min/1. 73 m2 [facility] Comment: Interpretive Data Reference Interval Normal [...] BLOOD ORDERABLES Final Result Performing Organization Address City/[facility] Co de Phone Number ALESSANDRA CARRION Billie [facility] Department [place] [address] * (ABNORMAL) Troponin I high-sensitivity series (baseline, 2hr, 4hr, 6hr) (06/23/2022 2:01 PM CDT) Pathologist [facility] [place] Trop I hs 3,653(C) <=35 ng/L [facility] Comment: Interpretive Data For further hscTnI resources including the diagnostic algorithm and an aid in interpretation, copy and paste this link: [email or web address]/[email or web address] Current Interpretive Data last revised 2020. Blood 06/23/2022 2:01 PM CDT 06/23/2022 2:16 PM CDT Result [facility] Carey East MD LAB BLOOD ORDERABLES Final Result Performing Organization Address [facility]/ZIP Co de Phone Number [facility] Department [place] [address] * (ABNORMAL) Phosphorus (06/23/2022 2:01 PM CDT) [facility] Phosphorus, pl 5.2(H) 2.3 - 4.5 mg/dL [facility] Blood 06/23/2022 2:01 PM CDT 06/23/2022 2:16 PM CDT Result [facility] Carey East MD LAB BLOOD ORDERABLES Final Result Performing Organization Address City/[facility]/ZIP Co de Phone Number [facility] Department [place] [employer] [address] * (ABNORMAL) Magnesium (06/23/2022 2:01 PM CDT) [facility] Magnesium 2.8(H) 1.4 - 2.5 mg/dL [facility] Blood 06/23/2022 2:01 PM CDT 06/23/2022 2:16 PM CDT Result [facility] Carey East MD LAB BLOOD ORDERABLES Final Result [facility] Department of Laboratories [place], [place] [id number] * (ABNORMAL) CBC without differential (06/23/2022 2:01 PM CDT) Pathologist [facility] [place] WBC 5.9 3.8 - 9.9 K/cumm [facility] Hgb 4.6(C) 13.0 - 17.5 g/dL [facility] Comment:Critical result call ed to and read back by MOUSTAPHA RAMSAY(RN) on 06 23 2022 at 1428 to Erin Bernabe. Hct 14.2(L) 38.9 - 50.3 % [facility] Plt 253 150 - 400 K/cumm [facility] MPV 10.1 9.1 - 12.3 fL [facility] RBC 1.51(L) 4.30 - 5.80 M/cumm [facility] MCV 94.0 81.3 - 96.4 fL [facility] MCH 30.5 27.1 - 33.3 pg [facility] MCHC 32.4 32.3 - 35.7 g/dL [facility] RDW CV 18.4(H) 11.1 - 14.9 % [facility] RDW SD 58.0(H) 35.7 - 48.1 fL [facility] NRBC abs 0.00 0.00 - 0.01 K/cumm [facility] Blood 06/23/2022 2:01 PM CDT 06/23/2022 2:17 PM CDT Narrative [facility] - 06/23/2022 2:29 PM CDT While on heparin infusion us Carey East MD LAB BLOOD ORDERABLES Final Result [facility] One [facility] Department [place] [address] * (ABNORMAL) Basic metabolic panel (06/23/2022 2:01 PM CDT) Pathologist [facility] [place] Sodium 136 135 - 145 mmol/L [facility] Potassium, pl 3.4 3.3 - 4.9 mmol/L [facility] Chloride 96(L) 97 - 110 mmol/L [facility] CO2 25 22 - 32 mmol/L [facility] Anion gap 15 2 - 15 mmol/L [facility] BUN 45(H) 8 - 25 mg/dL [facility] Creatinine 8.21(H) 0.80 - 1.30 mg/dL [facility] Glucose 60(L) 70 - 199 mg/dL [facility] Comment: Interpretive Data Fasting glucose [...] 2017. Calcium 8.3(L) 8.5 - 10.3 mg/dL [facility] Blood 06/23/2022 2:01 PM CDT 06/23/2022 2:16 PM CDT Carey East MD LAB BLOOD ORDERABLES Final Result Performing Organization Address City/[facility]/ZIP Co de Phone Number [facility] Department [place] [address] * POCT glucose (06/23/2022 1:42 PM CDT) [facility] Signature Glucose, POC 79 70 - 199 mg/dL [facility] Blood 06/23/2022 1:42 PM CDT 06/23/2022 1:42 PM CDT Carey East MD LAB POCT ORDERABLES - DEVICE Final Result Performing Organization Address City/[facility]/ZIP Co de Phone Number [facility] Department [place] [address] * ECG 12 lead (06/23/2022 1:30 PM CDT) [facility] Ventricular Rate EKG/Min 100 BPM [facility] Atrial Rate 100 BPM [facility] NM-Interval (MSEC) 182 ms [facility] QRS-Interval (MSEC) 106 ms [facility] QT-Interval (MSEC) 380 ms [facility] QTc 490 ms [facility] R [place] -47 degrees [facility] T [place] 105 degrees [facility] Diagnosis Sinus rhythm with Premature supraventricular complexes [...] SAL M.D ([id number]) on 06/23/2022 4:28:23 PM [facility] 06/23/2022 1:30 PM CDT 06/23/2022 4:28 PM CDT Carey East MD ECG ORDERABLES Ann Marie l Result [facility] * POCT glucose (06/23/2022 1:20 PM CDT) [facility] Glucose, POC 88 70 - 199 mg/dL [facility] Blood 06/23/2022 1:20 PM CDT 06/23/2022 1:20 PM CDT Carey East MD LAB POCT ORDERABLES - DEVICE Final Result [facility] Department [place] [address] * POCT glucose (06/23/2022 11:48 AM CDT) Glucose, POC 163 70 - 199 mg/dL [facility] Blood 06/23/2022 11:4 8 AM CDT 06/23/2022 11:48 AM CDT us Carey East MD LAB POCT ORDERABLES - DEVICE Final Result [facility] Department [place] [address] * (ABNORMAL) POCT glucose (06/23/2022 7:28 AM CDT) Glucose, POC 320(H) 70 - 199 mg/dL [facility] Blood 06/23/2022 7:28 AM CDT 06/23/2022 7:28 AM CDT us Catherine Adams MD LAB POCT ORDERABLES - DEVIC E Final Result Performing Organization Address City/[facility]/ZIP Co de Phone Number [facility] Department [place] [address] * (ABNORMAL) Magnesium (06/23/2022 4:21 AM CDT) Magnesium 2.9(H) 1.4 - 2.5 mg/dL [facility] Blood 06/23/2022 4:21 AM CDT 06/23/2022 5:58 AM CDT us Luiz Lewis DO LAB BLOOD ORDERABLES Final Res ult Performing Organization Address City/[facility]/ZIP Co de Phone Number [facility] [place] [address] * (ABNORMAL) CBC without differential (06/23/2022 4:21 AM CDT) [facility] WBC 4.4 3.8 - 9.9 K/cumm [facility] Hgb 8.1(L) 13.0 - 17.5 g/dL [facility] Hct 25.8(L) 38.9 - 50.3 % [facility] Plt 206 150 - 400 K/cumm [facility] MPV 10.4 9.1 - 12.3 fL [facility] RBC 2.76(L) 4.30 - 5.80 M/cumm [facility] MCV 93.5 81.3 - 96.4 fL [facility] MCH 29.3 27.1 - 33.3 pg [facility] MCHC 31.4(L) 32.3 - 35.7 g/dL [facility] RDW CV 18.8(H) 11.1 - 14.9 % [facility] RDW SD 58.8(H) 35.7 - 48.1 fL [facility] NRBC abs 0.00 0.00 - 0.01 K/cumm [facility] Blood 06/23/2022 4:21 AM CDT 06/23/2022 5:58 AM CDT Narrative [facility] - 06/23/2022 6:08 AM CDT While on heparin infusion us Luiz Lewis DO LAB BLOOD ORDERABLES Final Res ult [facility] Department [place] [address] * (ABNORMAL) POCT glucose (06/23/2022 1:38 AM CDT) [facility] Glucose, POC 244(H) 70 - 199 mg/dL [facility] Blood 06/23/2022 1:38 AM CDT 06/23/2022 1:38 AM CDT Catherine Adams MD LAB POCT ORDERABLES - DEVIC E Final Result [facility] [place] [address] * (ABNORMAL) Phosphorus (06/22/2022 9:28 PM CDT) Phosphorus, pl 5.8(H) 2.3 - 4.5 mg/dL [facility] Blood 06/22/2022 9:28 PM CDT 06/22/2022 10:27 PM CDT Catherine Adams MD LAB BLOOD ORDERABLES Final Result Performing Organization Address City/[facility]/[place] [address] * POCT glucose (06/22/2022 9:14 PM CDT) [facility] Signature Glucose, POC 176 70 - 199 mg/dL [facility] Blood 06/22/2022 9:14 PM CDT 06/22/2022 9:14 PM CDT Catherine Adams MD LAB POCT ORDERABLES - DEVIC E Final Result Performing Organization Address City/[facility]/ZIP Co de Phone Number [facility] Department [place] [address] * POCT glucose (06/22/2022 5:37 PM CDT) Glucose, POC 88 70 - 199 mg/dL [facility] Blood 06/22/2022 5:37 PM CDT 06/22/2022 5:37 PM CDT us Catherine Adams MD LAB POCT ORDERABLES - DEVIC E Final Result Performing Organization Address City/[facility]/ZIP Co de Phone Number [facility] [place] [address] * (ABNORMAL) eGFR (06/22/2022 3:21 PM CDT) Pathologist [facility] [place] eGFR 8(L) 90 - 130 mL/min/1. 73 m2 [facility] Comment: Interpretive Data Reference Interval Normal [...] NP LAB BLOOD ORDERABLES Final Re sult [facility] One [facility] Department of Laboratories [place], [place] [id number] * Differential, auto (06/22/2022 3:21 PM CDT) Pathologist [facility] Neutrophil abs 2.5 1.7 - 6.5 K/cumm [facility] Imm gran abs 0.0 0.0 - 0.1 K/cumm [facility] Lymphocyte abs 1.2 0.8 - 3.3 K/cumm [facility] Monocyte abs 0.8 0.2 - 0.8 K/cumm [facility] Eosinophil abs 0.5 0.0 - 0.5 K/cumm [facility] Basophil abs 0.0 0.0 - 0.1 K/cumm [facility] Neutrophil pct 51.2 % [facility] Comment: Interpretive Data Percent cell count reference ranges are not reported, since discordance with absolute values may lead to misinterpretation of CBC data. Current Interpretive Data was last revised on 2017. Imm gran pct 0.4 % [facility] Comment: Interpretive Data Percent cell count reference ranges are not reported, since discordance with absolute values may lead to misinterpretation of CBC data. Current Interpretive Data was last revised on 2017. Lymphocyte pct 23.3 % [facility] Comment: Interpretive Data Percent cell count reference ranges are not reported, since discordance with absolute values may lead to misinterpretation of CBC data. Current Interpretive Data was last revised on 2017. Monocyte pct 15.4 % [facility] Comment: Interpretive Data Percent cell count reference ranges are not reported, since discordance with absolute values may lead to misinterpretation of CBC data. Current Interpretive Data was last revised on 2017. Eosinophil pct 9.3 % [facility] Comment: Interpretive Data Percent cell count reference ranges are not reported, since discordance with absolute values may lead to misinterpretation of CBC data. Current Interpretive Data was last revised on 2017. Basophil pct 0.4 % [facility] Comment: Interpretive Data Percent cell count reference ranges are not reported, since discordance with absolute values may lead to misinterpretation of CBC data. Current Interpretive Data was last revised on 2017. Blood 06/22/2022 3:21 PM CDT 06/22/2022 3:52 PM CDT us Catherine Adams MD LAB BLOOD ORDERABLES Final Result [facility] One [facility] Department [place] [address] * (ABNORMAL) CBC with auto differential (06/22/2022 3:21 PM CDT) Pathologist [facility] [place] WBC 4.9 3.8 - 9.9 K/cumm [facility] Hgb 7.8(L) 13.0 - 17.5 g/dL [facility] Hct 24.1(L) 38.9 - 50.3 % [facility] Plt 183 150 - 400 K/cumm [facility] MPV 10.2 9.1 - 12.3 fL [facility] RBC 2.54(L) 4.30 - 5.80 M/cumm [facility] MCV 94.9 81.3 - 96.4 fL [facility] MCH 30.7 27.1 - 33.3 pg [facility] MCHC 32.4 32.3 - 35.7 g/dL [facility] RDW CV 18.5(H) 11.1 - 14.9 % [facility] RDW SD 58.2(H) 35.7 - 48.1 fL [facility] NRBC abs 0.00 0.00 - 0.01 K/cumm [facility] Blood 06/22/2022 3:21 PM CDT 06/22/2022 3:52 PM CDT us Catherine Adams MD LAB BLOOD ORDERABLES Final Result Performing Organization Address [facility]/ZIP Co de Phone Number [facility] Department [place] [address] * (ABNORMAL) Magnesium (06/22/2022 3:21 PM CDT) [facility] Magnesium 2.9(H) 1.4 - 2.5 mg/dL [facility] Blood 06/22/2022 3:21 PM CDT 06/22/2022 3:52 PM CDT us Marcelina Lo NP LAB BLOOD ORDERABLES Final Re sult [facility] Department [place] [address] * (ABNORMAL) Comprehensive metabolic panel (06/22/2022 3:21 PM CDT) Sodium 138 135 - 145 mmol/L [facility] Potassium, pl 3.7 3.3 - 4.9 mmol/L [facility] Chloride 99 97 - 110 mmol/L [facility] CO2 27 22 - 32 mmol/L [facility] Anion gap 12 2 - 15 mmol/L [facility] BUN 42(H) 8 - 25 mg/dL [facility] Creatinine 7.25(H) 0.80 - 1.30 mg/dL [facility] Glucose 103 70 - 199 mg/dL [facility] Comment: Interpretive Data Fasting glucose [...] 2017. Calcium 8.6 8.5 - 10.3 mg/dL [facility] Bilirubin, total 0.4 0.1 - 1.2 mg/dL [facility] Protein, pl 6.1(L) 6.5 - 8.5 g/dL [facility] Albumin 2.9(L) 3.5 - 5.0 g/dL [facility] Alk phos 112 40 - 130 Units/L [facility] ALT 31 7 - 55 Units/L [facility] AST 41 10 - 50 Units/L [facility] Blood 06/22/2022 3:21 PM CDT 06/22/2022 3:52 PM CDT us Marcelina Lo COMMUNICATION SPECIALIST LAB BLOOD ORDERABLES Final [facility] [place] [address] * POCT glucose (06/22/2022 11:38 AM CDT) Glucose, POC 162 70 - 199 mg/dL [facility] Blood 06/22/2022 11:3 8 AM CDT 06/22/2022 11:38 AM CDT Catherine Adams MD LAB POCT ORDERABLES - [place] [address] * POCT glucose (06/22/2022 10:46 AM CDT) Glucose, POC 197 70 - 199 mg/dL [facility] Blood 06/22/2022 10:4 6 AM CDT 06/22/2022 10:46 AM CDT Catherine Adams MD LAB POCT ORDERABLES - DEVIC E Final Result Performing Organization Address City/[facility] [place] [address] * (ABNORMAL) POCT glucose (06/22/2022 9:07 AM CDT) Glucose, POC 313(H) 70 - 199 mg/dL [facility] Blood 06/22/2022 9:07 AM CDT 06/22/2022 9:07 AM CDT Catherine Adams MD LAB POCT ORDERABLES - DEVIC E Final Result Performing Organization Address City/[facility]/ZIP Co de Phone Number [facility] [place] [address] * (ABNORMAL) POCT glucose (06/22/2022 7:40 AM CDT) Glucose, POC 364(H) 70 - 199 mg/dL [facility] Blood 06/22/2022 7:40 AM CDT 06/22/2022 7:40 AM CDT us Catherine Adams MD LAB POCT ORDERABLES - DEVIC E Final Result Performing Organization Address City/[facility]/ZIP Co de Phone Number [facility] Department [place] [address] * (ABNORMAL) POCT glucose (06/22/2022 7:38 AM CDT) Glucose, POC 318(H) 70 - 199 mg/dL [facility] Blood 06/22/2022 7:38 AM CDT 06/22/2022 7:38 AM CDT Catherine Adams MD LAB POCT ORDERABLES - DEVIC E Final Result Performing Organization Address City/[facility] Co de Phone Number [facility] Department [place] [address] * (ABNORMAL) POCT glucose (06/22/2022 5:54 AM CDT) Glucose, POC 370(H) 70 - 199 mg/dL [facility] Blood 06/22/2022 5:54 AM CDT 06/22/2022 5:54 AM CDT Catherine Adams MD LAB POCT ORDERABLES - DEVIC E Final Result Performing Organization Address City/State/[facility] Co de Phone Number [facility] [place] [address] * (ABNORMAL) eGFR (06/21/2022 9:55 PM CDT) eGFR 10(L) 90 - 130 mL/min/1. 73 m2 [facility] Comment: Interpretive Data Reference Interval Normal [...] NP LAB BLOOD ORDERABLES Final Re sult [facility] One [facility] [place] [address] * Differential, auto (06/21/2022 9:55 PM CDT) [facility] Neutrophil abs 3.7 1.7 - 6.5 K/cumm [facility] Imm gran abs 0.0 0.0 - 0.1 K/cumm [facility] Lymphocyte abs 1.0 0.8 - 3.3 K/cumm [facility] Monocyte abs 0.8 0.2 - 0.8 K/cumm [facility] Eosinophil abs 0.3 0.0 - 0.5 K/cumm [facility] Basophil abs 0.0 0.0 - 0.1 K/cumm [facility] Neutrophil pct 63.3 % [facility] Comment: Interpretive Data Percent cell count reference ranges are not reported, since discordance with absolute values may lead to misinterpretation of CBC data. Current Interpretive Data was last revised on 2017. Imm gran pct 0.5 % [facility] Comment: Interpretive Data Percent cell count reference ranges are not reported, since discordance with absolute values may lead to misinterpretation of CBC data. Current Interpretive Data was last revised on 2017. Lymphocyte pct 16.3 % [facility] Comment: Interpretive Data Percent cell count reference ranges are not reported, since discordance with absolute values may lead to misinterpretation of CBC data. Current Interpretive Data was last revised on 2017. Monocyte pct 14.3 % [facility] Comment: Interpretive Data Percent cell count reference ranges are not reported, since discordance with absolute values may lead to misinterpretation of CBC data. Current Interpretive Data was last revised on 2017. Eosinophil pct 5.1 % [facility] Comment: Interpretive Data Percent cell count reference ranges are not reported, since discordance with absolute values may lead to misinterpretation of CBC data. Current Interpretive Data was last revised on 2017. Basophil pct 0.5 % [facility] Comment: Interpretive Data Percent cell count reference ranges are not reported, since discordance with absolute values may lead to misinterpretation of CBC data. Current Interpretive Data was last revised on 2017. Blood 06/21/2022 9:55 PM CDT 06/21/2022 10:14 PM CDT us Catherine Adams MD LAB BLOOD ORDERABLES Final Result [facility] One [facility] Department [place] [address] * (ABNORMAL) POCT glucose (06/21/2022 9:55 PM CDT) [facility] Glucose, POC 272(H) 70 - 199 mg/dL [facility] Blood 06/21/2022 9:55 PM CDT 06/21/2022 9:55 PM CDT Catherine Adams MD LAB POCT ORDERABLES - DEVIC E Final Result Performing Organization Address [facility] Co de Phone Number [facility] [place] [address] * (ABNORMAL) CBC with auto differential (06/21/2022 9:55 PM CDT) [facility] WBC 5.9 3.8 - 9.9 K/cumm [facility] Hgb 7.5(L) 13.0 - 17.5 g/dL [facility] Hct 23.6(L) 38.9 - 50.3 % [facility] Plt 174 150 - 400 K/cumm [facility] MPV 9.7 9.1 - 12.3 fL [facility] RBC 2.51(L) 4.30 - 5.80 M/cumm [facility] MCV 94.0 81.3 - 96.4 fL [facility] MCH 29.9 27.1 - 33.3 pg [facility] MCHC 31.8(L) 32.3 - 35.7 g/dL [facility] RDW CV 18.9(H) 11.1 - 14.9 % [facility] RDW SD 60.0(H) 35.7 - 48.1 fL [facility] NRBC abs 0.02(H) 0.00 - 0.01 K/cumm [facility] Blood 06/21/2022 9:55 PM CDT 06/21/2022 10:14 PM CDT Catherine Adams MD LAB BLOOD ORDERABLES Final Result Performing Organization Address City/[facility]/ZIP Co de Phone Number [facility] [place] [address] * Lactate (06/21/2022 9:55 PM CDT) Lactate 0.8 0.7 - 2.0 mmol/L [facility] Blood 06/21/2022 9:55 PM CDT 06/21/2022 10:14 PM CDT Catherine Adams MD LAB BLOOD ORDERABLES Final Result [facility] Department [place] [address] * (ABNORMAL) Triglycerides (06/21/2022 9:55 PM CDT) Triglycerides 183(H) <=149 mg/dL [facility] Comment: Interpretive Data Ages < [...] PM CDT 06/21/2022 10:15 PM CDT [facility]ative [facility] 10:45 PM CDT While on propofol infusion. Catherine Adams MD LAB BLOOD ORDERABLES Final Result Performing Organization Address [facility] Co de Phone Number [facility] [place] [address] * (ABNORMAL) Phosphorus (06/21/2022 9:55 PM CDT) Phosphorus, pl 4.8(H) 2.3 - 4.5 mg/dL [facility] Blood 06/21/2022 9:55 PM CDT 06/21/2022 10:15 PM CDT Marcelina Lo COMMUNICATION SPECIALIST LAB BLOOD ORDERABLES Final Re sult Performing Organization Address [facility] Phone Number [facility] [place] [address] * (ABNORMAL) Lipase (06/21/2022 9:55 PM CDT) Lipase 227(H) 10 - 99 Units/L [facility] Blood 06/21/2022 9:55 PM CDT 06/21/2022 10:15 PM CDT Marcelina Lo COMMUNICATION SPECIALIST LAB BLOOD ORDERABLES Final Re sult Performing Organization Address [facility] Co de Phone Number [facility] [place] [address] * (ABNORMAL) Magnesium (06/21/2022 9:55 PM CDT) Magnesium 2.8(H) 1.4 - 2.5 mg/dL [facility] Blood 06/21/2022 9:55 PM CDT 06/21/2022 10:14 PM CDT Marcelina Lo COMMUNICATION SPECIALIST LAB BLOOD ORDERABLES Final Re sult [facility] [place] [address] * (ABNORMAL) Comprehensive metabolic panel (06/21/2022 9:55 PM CDT) Sodium 136 135 - 145 mmol/L [facility] Potassium, pl 4.0 3.3 - 4.9 mmol/L [facility] Chloride 98 97 - 110 mmol/L [facility] CO2 24 22 - 32 mmol/L [facility] Anion gap 14 2 - 15 mmol/L [facility] BUN 41(H) 8 - 25 mg/dL [facility] Creatinine 6.03(H) 0.80 - 1.30 mg/dL [facility] Glucose 276(H) 70 - 199 mg/dL [facility] Comment: Interpretive Data Fasting glucose [...] 2017. Calcium 8.4(L) 8.5 - 10.3 mg/dL [facility] Bilirubin, total 0.5 0.1 - 1.2 mg/dL [facility] Protein, pl 5.9(L) 6.5 - 8.5 g/dL [facility] Albumin 2.7(L) 3.5 - 5.0 g/dL [facility] Alk phos 111 40 - 130 Units/L [facility] ALT 32 7 - 55 Units/L [facility] AST 48 10 - 50 Units/L [facility] Blood 06/21/2022 9:55 PM CDT 06/21/2022 10:14 PM CDT us Marcelina Lo COMMUNICATION SPECIALIST LAB BLOOD ORDERABLES Final Re sult [facility] Department [place] [address] * (ABNORMAL) Differential, auto (06/21/2022 5:23 PM CDT) Neutrophil abs 4.1 1.7 - 6.5 K/cumm [facility] Imm gran abs 0.1 0.0 - 0.1 K/cumm [facility] Lymphocyte abs 1.2 0.8 - 3.3 K/cumm [facility] Monocyte abs 0.9(H) 0.2 - 0.8 K/cumm [facility] Eosinophil abs 0.3 0.0 - 0.5 K/cumm [facility] Basophil abs 0.0 0.0 - 0.1 K/cumm [facility] Neutrophil pct 62.4 % [facility] Comment: Interpretive Data Percent cell count reference ranges are not reported, since discordance with absolute values may lead to misinterpretation of CBC data. Current Interpretive Data was last revised on 2017. Imm gran pct 0.8 % [facility] Comment: Interpretive Data Percent cell count reference ranges are not reported, since discordance with absolute values may lead to misinterpretation of CBC data. Current Interpretive Data was last revised on 2017. Lymphocyte pct 18.5 % [facility] Comment: Interpretive Data Percent cell count reference ranges are not reported, since discordance with absolute values may lead to misinterpretation of CBC data. Current Interpretive Data was last revised on 2017. Monocyte pct 13.7 % [facility] Comment: Interpretive Data Percent cell count reference ranges are not reported, since discordance with absolute values may lead to misinterpretation of CBC data. Current Interpretive Data was last revised on 2017. Eosinophil pct 4.0 % [facility] Comment: Interpretive Data Percent cell count reference ranges are not reported, since discordance with absolute values may lead to misinterpretation of CBC data. Current Interpretive Data was last revised on 2017. Basophil pct 0.6 % [facility] Comment: Interpretive Data Percent cell count reference ranges are not reported, since discordance with absolute values may lead to misinterpretation of CBC data. Current Interpretive Data was last revised on 2017. Blood 06/21/2022 5:23 PM CDT 06/21/2022 5:45 PM CDT Catherine Adams MD LAB BLOOD ORDERABLES Final Result Performing Organization Address City/[facility]/ZIP Co de Phone Number [facility] Department [place] [employer] [place] [address] * (ABNORMAL) CBC with auto differential (06/21/2022 5:23 PM CDT) Pathologist [facility] [place] WBC 6.5 3.8 - 9.9 K/cumm [facility] Hgb 7.5(L) 13.0 - 17.5 g/dL [facility] Hct 23.0(L) 38.9 - 50.3 % [facility] Plt 177 150 - 400 K/cumm [facility] MPV 9.8 9.1 - 12.3 fL [facility] RBC 2.44(L) 4.30 - 5.80 M/cumm [facility] MCV 94.3 81.3 - 96.4 fL [facility] MCH 30.7 27.1 - 33.3 pg [facility] MCHC 32.6 32.3 - 35.7 g/dL [facility] RDW CV 19.0(H) 11.1 - 14.9 % [facility] RDW SD 60.9(H) 35.7 - 48.1 fL [facility] NRBC abs 0.00 0.00 - 0.01 K/cumm [facility] Blood 06/21/2022 5:23 PM CDT 06/21/2022 5:45 PM CDT Catherine Adams MD LAB BLOOD ORDERABLES Final Result Performing Organization Address City/[facility]/ZIP Co de Phone Number [facility] [place] [employer] [place] [address] * POCT glucose (06/21/2022 4:08 PM CDT) Glucose, POC 138 70 - 199 mg/dL [facility] Blood 06/21/2022 4:08 PM CDT 06/21/2022 4:08 PM CDT us Catherine Adams MD LAB POCT ORDERABLES - DEVIC E Final Result [facility] Department [place] [address] * FL Modified Barium Swallow W Video [...] MD IMG FLUOROSCOPY PROCEDURES Final Result * WORLD GEOGRAPHY TEACHER Evaluate and Treat (VFSS) (06/21/2022 2:02 PM [...] reported General Information Adelia Garvin Jr. 06/21/22 WORLD GEOGRAPHY TEACHER Received On: 06/21/22 General Observations: presents alert, [...] Administered: Thin liquids (via spoon & straw), [place] thickened liquids (via spoon & straw), Purees, Honey thickened liquids via spoon, Solids. Patient took large sips requiring more than 1 swallow even when cued for small sip. Administered consistencies contain barium product. Thin Liquids: Laryngeal Penetration: Present Aspiration Present: No Penetration Aspiration Scale-Thin: 4-Material enters the airway, contacts the vocal folds and is ejected from the airway [place] Thickened Liquids: Laryngeal Penetration: Present Aspiration Present: No Penetration Aspiration Scale-[place]: 2-Material enters the airway, remains above the [...] treatment goals and details, if indicated. Plan WORLD GEOGRAPHY TEACHER Frequency of Services: 2-3x/wk WORLD GEOGRAPHY TEACHER Recommendation (Add'l Services): Inpatient Rehab Facility Next Visit Plan: treatment/therapy Additional Referrals: none at this time Discharge Summary Statement If this is the last swallow therapy visit, this serves as the discharge summary. us Catherine Adams MD WORLD GEOGRAPHY TEACHER ORDERABLES Final Resul t * POCT glucose (06/21/2022 12:00 PM CDT) Pathologist [facility] [place] Glucose, POC 157 70 - 199 mg/dL [facility] Blood 06/21/2022 12:0 0 PM CDT 06/21/2022 12:00 PM CDT us Catherine Adams MD LAB POCT ORDERABLES - DEVIC E Final Result Performing Organization Address City/State/[facility] Co de Phone Number [facility] Department [place] [address] * (ABNORMAL) eGFR (06/21/2022 8:38 AM CDT) [facility] eGFR 12(L) 90 - 130 mL/min/1. 73 m2 [facility] Comment: Interpretive Data Reference Interval Normal [...] 06/21/2022 9:17 AM CDT us Marcelina Lo COMMUNICATION SPECIALIST LAB BLOOD ORDERABLES Final Re sult [facility] Department [place] [address] * Differential, auto (06/21/2022 8:38 AM CDT) Neutrophil abs 3.3 1.7 - 6.5 K/cumm [facility] Imm gran abs 0.0 0.0 - 0.1 K/cumm [facility] Lymphocyte abs 1.2 0.8 - 3.3 K/cumm [facility] Monocyte abs 0.7 0.2 - 0.8 K/cumm [facility] Eosinophil abs 0.1 0.0 - 0.5 K/cumm [facility] Basophil abs 0.1 0.0 - 0.1 K/cumm [facility] Neutrophil pct 60.8 % [facility] Comment: Interpretive Data Percent cell count reference ranges are not reported, since discordance with absolute values may lead to misinterpretation of CBC data. Current Interpretive Data was last revised on 2017. Imm gran pct 0.7 % [facility] Comment: Interpretive Data Percent cell count reference ranges are not reported, since discordance with absolute values may lead to misinterpretation of CBC data. Current Interpretive Data was last revised on 2017. Lymphocyte pct 22.0 % [facility] Comment: Interpretive Data Percent cell count reference ranges are not reported, since discordance with absolute values may lead to misinterpretation of CBC data. Current Interpretive Data was last revised on 2017. Monocyte pct 13.7 % [facility] Comment: Interpretive Data Percent cell count reference ranges are not reported, since discordance with absolute values may lead to misinterpretation of CBC data. Current Interpretive Data was last revised on 2017. Eosinophil pct 1.9 % [facility] Comment: Interpretive Data Percent cell count reference ranges are not reported, since discordance with absolute values may lead to misinterpretation of CBC data. Current Interpretive Data was last revised on 2017. Basophil pct 0.9 % [facility] Comment: Interpretive Data Percent cell count reference ranges are not reported, since discordance with absolute values may lead to misinterpretation of CBC data. Current Interpretive Data was last revised on 2017. Blood 06/21/2022 8:38 AM CDT 06/21/2022 9:10 AM CDT Catherine Adams MD LAB BLOOD ORDERABLES Final Result Performing Organization Address City/[facility]/ZIP Co de Phone Number [facility] Department [place] [address] * (ABNORMAL) CBC with auto differential (06/21/2022 8:38 AM CDT) Pathologist [facility] [place] WBC 5.4 3.8 - 9.9 K/cumm [facility] Hgb 9.0(L) 13.0 - 17.5 g/dL [facility] Hct 27.8(L) 38.9 - 50.3 % [facility] Plt 171 150 - 400 K/cumm [facility] MPV 9.8 9.1 - 12.3 fL [facility] RBC 3.01(L) 4.30 - 5.80 M/cumm [facility] MCV 92.4 81.3 - 96.4 fL [facility] MCH 29.9 27.1 - 33.3 pg [facility] MCHC 32.4 32.3 - 35.7 g/dL [facility] RDW CV 19.9(H) 11.1 - 14.9 % [facility] RDW SD 63.2(H) 35.7 - 48.1 fL [facility] NRBC abs 0.02(H) 0.00 - 0.01 K/cumm [facility] Blood 06/21/2022 8:38 AM CDT 06/21/2022 9:10 AM CDT Catherine Adams MD LAB BLOOD ORDERABLES Final Result Performing Organization Address City/[facility]/ZIP Co de Phone Number [facility] Department [place] [address] * (ABNORMAL) Magnesium (06/21/2022 8:38 AM CDT) Magnesium 2.8(H) 1.4 - 2.5 mg/dL [facility] Blood 06/21/2022 8:38 AM CDT 06/21/2022 9:10 AM CDT us Marcelina Lo COMMUNICATION SPECIALIST LAB BLOOD ORDERABLES Final Re sult [facility] Department [place] [address] * (ABNORMAL) Comprehensive metabolic panel (06/21/2022 8:38 AM CDT) Pathologist [facility] [place] Sodium 139 135 - 145 mmol/L [facility] Potassium, pl 4.0 3.3 - 4.9 mmol/L [facility] Chloride 101 97 - 110 mmol/L [facility] CO2 27 22 - 32 mmol/L [facility] Anion gap 11 2 - 15 mmol/L [facility] BUN 36(H) 8 - 25 mg/dL [facility] Creatinine 5.26(H) 0.80 - 1.30 mg/dL [facility] Glucose 199 70 - 199 mg/dL [facility] Comment: Interpretive Data Fasting glucose [...] 2017. Calcium 8.4(L) 8.5 - 10.3 mg/dL [facility] Bilirubin, total 0.4 0.1 - 1.2 mg/dL [facility] Protein, pl 5.6(L) 6.5 - 8.5 g/dL [facility] Albumin 2.7(L) 3.5 - 5.0 g/dL [facility] Alk phos 115 40 - 130 Units/L [facility] ALT 28 7 - 55 Units/L [facility] AST 52(H) 10 - 50 Units/L [facility] Blood 06/21/2022 8:3 8 AM CDT 06/21/2022 9:10 AM CDT us Marcelina Lo COMMUNICATION SPECIALIST LAB BLOOD ORDERABLES Final Re sult [facility] [place] [employer] [address] * POCT glucose (06/21/2022 8:34 AM CDT) Glucose, POC 199 70 - 199 mg/dL [facility] Blood 06/21/2022 8:34 AM CDT 06/21/2022 8:34 AM CDT Catherine Adams MD LAB POCT ORDERABLES - DEVIC E Final Result Performing Organization Address [facility] Co de Phone Number [facility] Department [place] [address] * (ABNORMAL) POCT glucose (06/21/2022 5:30 AM CDT) Glucose, POC 270(H) 70 - 199 mg/dL [facility] Blood 06/21/2022 5:30 AM CDT 06/21/2022 5:30 AM CDT Catherine Adams MD LAB POCT ORDERABLES - DEVIC E Final Result Performing Organization Address City/[facility] Co de Phone Number [facility] Department [place] [address] * (ABNORMAL) POCT glucose (06/21/2022 12:22 AM CDT) Glucose, POC 231(H) 70 - 199 mg/dL [facility] Blood 06/21/2022 12:2 2 AM CDT 06/21/2022 12:22 AM CDT Catherine Adams MD LAB POCT ORDERABLES - DEVIC E Final Result [facility] Department [place] [address] * Differential, auto (06/21/2022 12:21 AM CDT) Pathologist [facility] [place] Neutrophil abs 4.4 1.7 - 6.5 K/cumm [facility] Imm gran abs 0.1 0.0 - 0.1 K/cumm [facility] Lymphocyte abs 1.2 0.8 - 3.3 K/cumm [facility] Monocyte abs 0.8 0.2 - 0.8 K/cumm [facility] Eosinophil abs 0.1 0.0 - 0.5 K/cumm [facility] Basophil abs 0.0 0.0 - 0.1 K/cumm [facility] Neutrophil pct 67.5 % [facility] Comment: Interpretive Data Percent cell count reference ranges are not reported, since discordance with absolute values may lead to misinterpretation of CBC data. Current Interpretive Data was last revised on 2017. Imm gran pct 0.9 % [facility] Comment: Interpretive Data Percent cell count reference ranges are not reported, since discordance with absolute values may lead to misinterpretation of CBC data. Current Interpretive Data was last revised on 2017. Lymphocyte pct 18.3 % [facility] Comment: Interpretive Data Percent cell count reference ranges are not reported, since discordance with absolute values may lead to misinterpretation of CBC data. Current Interpretive Data was last revised on 2017. Monocyte pct 11.7 % [facility] Comment: Interpretive Data Percent cell count reference ranges are not reported, since discordance with absolute values may lead to misinterpretation of CBC data. Current Interpretive Data was last revised on 2017. Eosinophil pct 1.1 % [facility] Comment: Interpretive Data Percent cell count reference ranges are not reported, since discordance with absolute values may lead to misinterpretation of CBC data. Current Interpretive Data was last revised on 2017. Basophil pct 0.5 % [facility] Comment: Interpretive Data Percent cell count reference ranges are not reported, since discordance with absolute values may lead to misinterpretation of CBC data. Current Interpretive Data was last revised on 2017. Blood 06/21/2022 12:2 1 AM CDT 06/21/2022 12:50 AM CDT us Catherine Adams MD LAB BLOOD ORDERABLES Final Result [facility] Department [place] [address] * (ABNORMAL) CBC with auto differential (06/21/2022 12:21 AM CDT) WBC 6.5 3.8 - 9.9 K/cumm [facility] Hgb 7.4(L) 13.0 - 17.5 g/dL [facility] Hct 23.6(L) 38.9 - 50.3 % [facility] Plt 179 150 - 400 K/cumm [facility] MPV 9.8 9.1 - 12.3 fL [facility] RBC 2.49(L) 4.30 - 5.80 M/cumm [facility] MCV 94.8 81.3 - 96.4 fL [facility] MCH 29.7 27.1 - 33.3 pg [facility] MCHC 31.4(L) 32.3 - 35.7 g/dL [facility] RDW CV 20.0(H) 11.1 - 14.9 % [facility] RDW SD 66.2(H) 35.7 - 48.1 fL [facility] NRBC abs 0.04(H) 0.00 - 0.01 K/cumm [facility] Blood 06/21/2022 12:2 1 AM CDT 06/21/2022 12:50 AM CDT us Catherine Adams MD LAB BLOOD ORDERABLES Final Result Performing Organization Address [facility] Co de Phone Number [facility] Department [place] [address] * POCT glucose (06/20/2022 7:49 PM CDT) Glucose, POC 177 70 - 199 mg/dL [facility] Blood 06/20/2022 7:49 PM CDT 06/20/2022 7:49 PM CDT us Catherine Adams MD LAB POCT ORDERABLES - DEVIC E Final Result Performing Organization Address [facility] de Phone Number [facility] Department [place] [address] * (ABNORMAL) eGFR (06/20/2022 7:46 PM CDT) Pathologist [facility] [place] eGFR 18(L) 90 - 130 mL/min/1. 73 m2 [facility] Comment: Interpretive Data Reference Interval Normal [...] 06/20/2022 8:15 PM CDT us Marcelina Lo COMMUNICATION SPECIALIST LAB BLOOD ORDERABLES Final Re sult Performing Organization Address [facility]/ZIP Co de Phone Number [facility] Department [place] [address] * Lactate (06/20/2022 7:46 PM CDT) Lactate 1.0 0.7 - 2.0 mmol/L [facility] Blood 06/20/2022 7:46 PM CDT 06/20/2022 8:14 PM CDT Catherine Adams MD LAB BLOOD ORDERABLES Final Result Performing Organization Address [facility] de Phone Number [facility] Department [place] [address] * (ABNORMAL) Triglycerides (06/20/2022 7:46 PM CDT) Triglycerides 181(H) <=149 mg/dL [facility] Comment: Interpretive Data Ages < [...] PM CDT 06/20/2022 8:14 PM CDT Narrative [facility] - 06/20/2022 8:51 PM CDT While on propofol infusion. Catherine Adams MD LAB BLOOD ORDERABLES Final Result Performing Organization Address [facility] Co de Phone Number [facility] Department [place] [address] * Phosphorus (06/20/2022 7:46 PM CDT) Pathologist [facility] [place] Phosphorus, pl 2.9 2.3 - 4.5 mg/dL [facility] Comment:Repeated and Verifie d Blood 06/20/2022 7:46 PM CDT 06/20/2022 8:14 PM CDT us Marcelina Lo NP LAB BLOOD ORDERABLES Final Re sult Performing Organization Address [facility] Co de Phone Number [facility] Department [place] [address] * (ABNORMAL) Beta-hydroxybutyrate (06/20/2022 7:46 PM CDT) Beta-Hydroxybut yrate 2.5(H) 0.0 - 0.5 mmol/L [facility] Blood 06/20/2022 7:46 PM CDT 06/20/2022 8:59 PM CDT Marcelina Lo COMMUNICATION SPECIALIST LAB BLOOD ORDERABLES Final Re sult Performing Organization Address [facility] Co de Phone Number [facility] [place] [address] * Lipase (06/20/2022 7:46 PM CDT) Pathologist [facility] [place] Lipase 88 10 - 99 Units/L [facility] Blood 06/20/2022 7:46 PM CDT 06/20/2022 8:14 PM CDT Marcelina Lo COMMUNICATION SPECIALIST LAB BLOOD ORDERABLES Final Re sult Performing Organization Address [facility] [place] [address] * (ABNORMAL) Magnesium (06/20/2022 7:46 PM CDT) [facility] Magnesium 2.6(H) 1.4 - 2.5 mg/dL [facility] Blood 06/20/2022 7:46 PM CDT 06/20/2022 8:15 PM CDT Marcelina Lo COMMUNICATION SPECIALIST LAB BLOOD ORDERABLES Final Re sult Performing Organization Address [facility] Co de Phone Number [facility] [place] [address] * (ABNORMAL) Comprehensive metabolic panel (06/20/2022 7:46 PM CDT) Pathologist [facility] [place] Sodium 137 135 - 145 mmol/L [facility] Potassium, pl 4.9 3.3 - 4.9 mmol/L [facility] [facility] Chloride 102 97 - 110 mmol/L [facility] CO2 23 22 - 32 mmol/L [facility] Anion gap 12 2 - 15 mmol/L [facility] BUN 26(H) 8 - 25 mg/dL [facility] Creatinine 3.87(H) 0.80 - 1.30 mg/dL [facility] Glucose 188 70 - 199 mg/dL [facility] Comment: Interpretive Data Fasting glucose [...] 2017. Calcium 8.5 8.5 - 10.3 mg/dL [facility] Bilirubin, total 0.6 0.1 - 1.2 mg/dL [facility] Protein, pl 5.7(L) 6.5 - 8.5 g/dL [facility] Albumin 2.7(L) 3.5 - 5.0 g/dL [facility] Alk phos 123 40 - 130 Units/L [facility] ALT 29 7 - 55 Units/L [facility] AST 61(H) 10 - 50 Units/L [facility] Blood 06/20/2022 7:46 PM CDT 06/20/2022 8:15 PM CDT us Marcelina Lo COMMUNICATION SPECIALIST LAB BLOOD ORDERABLES Final Re sult [facility] One [facility] [place] [address] * (ABNORMAL) Differential, auto (06/20/2022 6:18 PM CDT) Neutrophil abs 6.2 1.7 - 6.5 K/cumm [facility] Imm gran abs 0.1 0.0 - 0.1 K/cumm [facility] Lymphocyte abs 0.9 0.8 - 3.3 K/cumm [facility] Monocyte abs 1.1(H) 0.2 - 0.8 K/cumm [facility] Eosinophil abs 0.0 0.0 - 0.5 K/cumm [facility] Basophil abs 0.0 0.0 - 0.1 K/cumm [facility] Neutrophil pct 74.5 % [facility] Comment: Interpretive Data Percent cell count reference ranges are not reported, since discordance with absolute values may lead to misinterpretation of CBC data. Current Interpretive Data was last revised on 2017. Imm gran pct 0.7 % [facility] Comment: Interpretive Data Percent cell count reference ranges are not reported, since discordance with absolute values may lead to misinterpretation of CBC data. Current Interpretive Data was last revised on 2017. Lymphocyte pct 11.0 % [facility] Comment: Interpretive Data Percent cell count reference ranges are not reported, since discordance with absolute values may lead to misinterpretation of CBC data. Current Interpretive Data was last revised on 2017. Monocyte pct 12.8 % [facility] Comment: Interpretive Data Percent cell count reference ranges are not reported, since discordance with absolute values may lead to misinterpretation of CBC data. Current Interpretive Data was last revised on 2017. Eosinophil pct 0.5 % [facility] Comment: Interpretive Data Percent cell count reference ranges are not reported, since discordance with absolute values may lead to misinterpretation of CBC data. Current Interpretive Data was last revised on 2017. Basophil pct 0.5 % [facility] Comment: Interpretive Data Percent cell count reference ranges are not reported, since discordance with absolute values may lead to misinterpretation of CBC data. Current Interpretive Data was last revised on 2017. Blood 06/20/2022 6:18 PM CDT 06/20/2022 7:08 PM CDT us Tyra De La Torre MD LAB BLOOD ORDERABLES Final Resu lt [facility] One [facility] Department [place] [address] * (ABNORMAL) CBC with auto differential (06/20/2022 6:18 PM CDT) [facility] WBC 8.3 3.8 - 9.9 K/cumm [facility] Hgb 7.7(L) 13.0 - 17.5 g/dL [facility] Hct 23.7(L) 38.9 - 50.3 % [facility] Plt 188 150 - 400 K/cumm [facility] MPV 9.8 9.1 - 12.3 fL [facility] RBC 2.55(L) 4.30 - 5.80 M/cumm [facility] MCV 92.9 81.3 - 96.4 fL [facility] MCH 30.2 27.1 - 33.3 pg [facility] MCHC 32.5 32.3 - 35.7 g/dL [facility] RDW CV 20.1(H) 11.1 - 14.9 % [facility] RDW SD 64.8(H) 35.7 - 48.1 fL [facility] NRBC abs 0.04(H) 0.00 - 0.01 K/cumm [facility] Blood 06/20/2022 6:18 PM CDT 06/20/2022 7:08 PM CDT us Tyra De La Torre MD LAB BLOOD ORDERABLES Final Resu lt [facility] [place] [employer] [address] * POCT glucose (06/20/2022 3:53 PM CDT) [facility] Glucose, POC 124 70 - 199 mg/dL [facility] Blood 06/20/2022 3:53 PM CDT 06/20/2022 3:53 PM CDT us Catherine Adams MD LAB POCT ORDERABLES - DEVIC E Final Result Performing Organization Address City/[facility]/ZIP Co de Phone Number [facility] Department [place] [employer] [place] [address] * (ABNORMAL) Differential, auto (06/20/2022 3:22 PM CDT) Neutrophil abs 4.7 1.7 - 6.5 K/cumm [facility] Imm gran abs 0.1 0.0 - 0.1 K/cumm [facility] Lymphocyte abs 1.4 0.8 - 3.3 K/cumm [facility] Monocyte abs 1.0(H) 0.2 - 0.8 K/cumm [facility] Eosinophil abs 0.0 0.0 - 0.5 K/cumm [facility] Basophil abs 0.1 0.0 - 0.1 K/cumm [facility] Neutrophil pct 64.5 % [facility] Comment: Interpretive Data Percent cell count reference ranges are not reported, since discordance with absolute values may lead to misinterpretation of CBC data. Current Interpretive Data was last revised on 2017. Imm gran pct 0.7 % [facility] Comment: Interpretive Data Percent cell count reference ranges are not reported, since discordance with absolute values may lead to misinterpretation of CBC data. Current Interpretive Data was last revised on 2017. Lymphocyte pct 19.4 % [facility] Comment: Interpretive Data Percent cell count reference ranges are not reported, since discordance with absolute values may lead to misinterpretation of CBC data. Current Interpretive Data was last revised on 2017. Monocyte pct 14.1 % [facility] Comment: Interpretive Data Percent cell count reference ranges are not reported, since discordance with absolute values may lead to misinterpretation of CBC data. Current Interpretive Data was last revised on 2017. Eosinophil pct 0.6 % [facility] Comment: Interpretive Data Percent cell count reference ranges are not reported, since discordance with absolute values may lead to misinterpretation of CBC data. Current Interpretive Data was last revised on 2017. Basophil pct 0.7 % [facility] Comment: Interpretive Data Percent cell count reference ranges are not reported, since discordance with absolute values may lead to misinterpretation of CBC data. Current Interpretive Data was last revised on 2017. Blood 06/20/2022 3:22 PM CDT 06/20/2022 3:55 PM CDT Catherine Adams MD LAB BLOOD ORDERABLES Final Result [facility] Department [place] [address] * (ABNORMAL) CBC with auto differential (06/20/2022 3:22 PM CDT) Pathologist [facility] [place] WBC 7.2 3.8 - 9.9 K/cumm [facility] Hgb 8.0(L) 13.0 - 17.5 g/dL [facility] Hct 24.5(L) 38.9 - 50.3 % [facility] Plt 207 150 - 400 K/cumm [facility] MPV 9.8 9.1 - 12.3 fL [facility] RBC 2.67(L) 4.30 - 5.80 M/cumm [facility] MCV 91.8 81.3 - 96.4 fL [facility] Comment:MCV delta due to zoie arent blood transfusion. MCH 30.0 27.1 - 33.3 pg [facility] MCHC 32.7 32.3 - 35.7 g/dL [facility] RDW CV 19.9(H) 11.1 - 14.9 % [facility] RDW SD 63.6(H) 35.7 - 48.1 fL [facility] NRBC abs 0.03(H) 0.00 - 0.01 K/cumm [facility] Blood 06/20/2022 3:22 PM CDT 06/20/2022 3:55 PM CDT us Catherine Adams MD LAB BLOOD ORDERABLES Final Result [facility] Department [place] [address] * CT Chest Abdomen Pelvis WO Contrast [...] ORDERABLE S Final Result Performing Organization Address [facility] de Phone Number [facility] One [facility] Department [place] [address] * Transfuse RBC: 1 Units (06/20/2022 12:05 PM CDT) Blood Result [facility] Catherine Adams MD BLOOD TRANSFUSION ORDERABLE S Final Result * Prepare RBC: 1 Units (06/20/2022 9:35 AM CDT) Product code [id number] [facility] Unit Number [id number] 3-* [facility] Product Blood Type APOS [facility] Dispense Status RETURNED [facility] Blood 06/20/2022 9:35 AM CDT 06/20/2022 9:34 AM CDT Narrative [facility] - 06/20/2022 1:20 PM CDT Are special requirements needed? (All products are leukoreduced and CMV- safe)- >No Date required:-20220620 LRRBC # of [id number] Reasons:-Hgb <7 g/dL} Catherine Adams MD BLOOD BANK PRODUCT ORDERABL ES Final Result [facility] One [facility] Department [place] [address] * (ABNORMAL) eGFR (06/20/2022 8:24 AM CDT) [facility] eGFR 21(L) 90 - 130 mL/min/1. 73 m2 [facility] Comment: Interpretive Data Reference Interval Normal [...] ORDERABLES Final Re sult ALESS[facility]DR[facility] CARRION Billie [facility] Department [place] [address] * (ABNORMAL) Differential, auto (06/20/2022 8:24 AM CDT) Neutrophil abs 5.1 1.7 - 6.5 K/cumm [facility] Imm gran abs 0.1 0.0 - 0.1 K/cumm [facility] Lymphocyte abs 1.6 0.8 - 3.3 K/cumm [facility] Monocyte abs 1.3(H) 0.2 - 0.8 K/cumm [facility] Eosinophil abs 0.1 0.0 - 0.5 K/cumm [facility] Basophil abs 0.1 0.0 - 0.1 K/cumm [facility] Neutrophil pct 62.3 % [facility] Comment: Interpretive Data Percent cell count reference ranges are not reported, since discordance with absolute values may lead to misinterpretation of CBC data. Current Interpretive Data was last revised on 2017. Imm gran pct 0.7 % [facility] Comment: Interpretive Data Percent cell count reference ranges are not reported, since discordance with absolute values may lead to misinterpretation of CBC data. Current Interpretive Data was last revised on 2017. Lymphocyte pct 19.9 % [facility] Comment: Interpretive Data Percent cell count reference ranges are not reported, since discordance with absolute values may lead to misinterpretation of CBC data. Current Interpretive Data was last revised on 2017. Monocyte pct 15.9 % [facility] Comment: Interpretive Data Percent cell count reference ranges are not reported, since discordance with absolute values may lead to misinterpretation of CBC data. Current Interpretive Data was last revised on 2017. Eosinophil pct 0.6 % [facility] Comment: Interpretive Data Percent cell count reference ranges are not reported, since discordance with absolute values may lead to misinterpretation of CBC data. Current Interpretive Data was last revised on 2017. Basophil pct 0.6 % [facility] Comment: Interpretive Data Percent cell count reference ranges are not reported, since discordance with absolute values may lead to misinterpretation of CBC data. Current Interpretive Data was last revised on 2017. Blood 06/20/2022 8:24 AM CDT 06/20/2022 8:48 AM CDT Catherine Adams MD LAB BLOOD ORDERABLES Final Result [facility] [place] [address] * (ABNORMAL) CBC with auto differential (06/20/2022 8:24 AM CDT) WBC 8.3 3.8 - 9.9 K/cumm [facility] Hgb 6.6(L) 13.0 - 17.5 g/dL [facility] Hct 20.7(L) 38.9 - 50.3 % [facility] Plt 271 150 - 400 K/cumm [facility] MPV 9.6 9.1 - 12.3 fL [facility] RBC 2.12(L) 4.30 - 5.80 M/cumm [facility] MCV 97.6(H) 81.3 - 96.4 fL [facility] MCH 31.1 27.1 - 33.3 pg [facility] MCHC 31.9(L) 32.3 - 35.7 g/dL [facility] RDW CV 17.4(H) 11.1 - 14.9 % [facility] RDW SD 59.6(H) 35.7 - 48.1 fL [facility] NRBC abs 0.00 0.00 - 0.01 K/cumm [facility] Blood 06/20/2022 8:24 AM CDT 06/20/2022 8:48 AM CDT Catherine Adams MD LAB BLOOD ORDERABLES Final Result [facility] Department [place] [address] * (ABNORMAL) Magnesium (06/20/2022 8:24 AM CDT) Magnesium 2.7(H) 1.4 - 2.5 mg/dL [facility] Blood 06/20/2022 8:24 AM CDT 06/20/2022 8:48 AM CDT us Marcelina Lo COMMUNICATION SPECIALIST LAB BLOOD ORDERABLES Final Re sult [facility] One [facility] Department [place] [address] * (ABNORMAL) Comprehensive metabolic panel (06/20/2022 8:24 AM CDT) Sodium 140 135 - 145 mmol/L [facility] Potassium, pl 4.9 3.3 - 4.9 mmol/L [facility] Chloride 104 97 - 110 mmol/L [facility] CO2 25 22 - 32 mmol/L [facility] Anion gap 11 2 - 15 mmol/L [facility] BUN 25 8 - 25 mg/dL [facility] Creatinine 3.43(H) 0.80 - 1.30 mg/dL [facility] Glucose 144 70 - 199 mg/dL [facility] Comment: Interpretive Data Fasting glucose [...] 2017. Calcium 8.4(L) 8.5 - 10.3 mg/dL [facility] Bilirubin, total 0.6 0.1 - 1.2 mg/dL [facility] Protein, pl 6.2(L) 6.5 - 8.5 g/dL [facility] Albumin 2.8(L) 3.5 - 5.0 g/dL [facility] Alk phos 143(H) 40 - 130 Units/L [facility] ALT 35 7 - 55 Units/L [facility] AST 79(H) 10 - 50 Units/L [facility] Blood 06/20/2022 8:24 AM CDT 06/20/2022 8:48 AM CDT us Marcelina Lo NP LAB BLOOD ORDERABLES Final Re sult Performing Organization Address [facility] de Phone Number [facility] [place] [address] * POCT glucose (06/20/2022 8:21 AM CDT) Glucose, POC 152 70 - 199 mg/dL [facility] Blood 06/20/2022 8:21 AM CDT 06/20/2022 8:21 AM CDT Catherine Adams MD LAB POCT ORDERABLES - DEVIC E Final Result Performing Organization Address [place]/[facility] Phone Number [facility] Department [place] [address] * Transfuse RBC (06/20/2022 6:12 AM CDT) Blood Catherine Adams MD BLOOD TRANSFUSION ORDERABLE S Final Result Performing Organization Address [facility] de Phone Number [facility] [place] [address] * Transfuse RBC: 1 Units (06/20/2022 6:12 AM CDT) Blood us Catherine Adams MD BLOOD TRANSFUSION ORDERABLE S Final Result * POCT glucose (06/20/2022 4:57 AM CDT) Glucose, POC 174 70 - 199 mg/dL [facility] Blood 06/20/2022 4:57 AM CDT 06/20/2022 4:57 AM CDT us Catherine Adams MD LAB POCT ORDERABLES - [place] [address] * (ABNORMAL) Hemoglobin and hematocrit (06/20/2022 12:25 AM CDT) Pathologist [facility] [place] Hgb 6.2(C) 13.0 - 17.5 g/dL [facility] Comment:Consistent with prev ious results Hct 19.8(L) 38.9 - 50.3 % [facility] Blood 06/20/2022 12:2 5 AM CDT 06/20/2022 12:37 AM CDT Meme Castro MD LAB BLOOD ORDERABLES Final Result Performing Organization Address [facility] [place] [address] * Type and screen (06/20/2022 12:23 AM CDT) [facility] Maribel, indirect Negative [facility] ABO Rh A Positive [facility] Blood 06/20/2022 12:2 3 AM CDT 06/20/2022 1:33 AM CDT Narrative [facility] - 06/20/2022 3:08 AM CDT Has the patient had Daratumumab or Isatuximab in the past 6 months?->Unknown Catherine Adams MD LAB BLOOD BANK TEST ORDERAB LES Final Result Performing Organization Address City/[facility]/[place] [address] * Prepare RBC: 1 Units (06/20/2022 12:15 AM CDT) Product code [id number] [facility] Unit Number [id number] 1 [facility] Product Blood Type APOS [facility] Dispense Status PRESUMED TRANSFUSED [facility] Blood 06/20/2022 12:1 5 AM CDT 06/20/2022 12:16 AM CDT Narrative [facility] - 06/21/2022 12:50 AM CDT Are special requirements needed? (All products are leukoreduced and CMV- safe)- >No Date required:-20220620 LRRBC # of [id number] Reasons:-Hgb <7 g/dL} Catherine Adams MD BLOOD BANK PRODUCT ORDERABL ES Final Result Performing Organization Address [facility] Co de Phone Number [facility] Department [place] [address] * (ABNORMAL) POCT glucose (06/20/2022 12:01 AM CDT) Glucose, POC 206(H) 70 - 199 mg/dL [facility] Blood 06/20/2022 12:0 1 AM CDT 06/20/2022 12:01 AM CDT Result [facility] Catherine Adams MD LAB POCT ORDERABLES - DEVIC E Final Result Performing Organization Address City/[facility] Co de Phone Number [facility] Department [place] [address] * (ABNORMAL) Hemoglobin and hematocrit (06/19/2022 11:25 PM CDT) Hgb 6.2(C) 13.0 - 17.5 g/dL [facility] Comment:Critical result call ed to and read back by WON SHELBY RN on 06 20 2022 at 0010 to Precious Restrepo. Hct 19.5(L) 38.9 - 50.3 % [facility] Blood 06/19/2022 11:2 5 PM CDT 06/19/2022 11:42 PM CDT Meme Castro MD LAB BLOOD ORDERABLES Final Result Performing Organization Address [facility] Co de Phone Number [facility] Department [place] [address] * POCT glucose (06/19/2022 8:55 PM CDT) [facility] Glucose, POC 161 70 - 199 mg/dL [facility] Blood 06/19/2022 8:55 PM CDT 06/19/2022 8:55 PM CDT Catherine Adams MD LAB POCT ORDERABLES - DEVIC E Final Result Performing Organization Address [facility] de Phone Number [facility] Department [place] [address] * (ABNORMAL) eGFR (06/19/2022 8:54 PM CDT) [facility] eGFR 16(L) 90 - 130 mL/min/1. 73 m2 [facility] Comment: Interpretive Data Reference Interval Normal [...] 06/19/2022 9:22 PM CDT us Marcelina Lo COMMUNICATION SPECIALIST LAB BLOOD ORDERABLES Final Re sult [facility] One [facility] Department [place] [address] * (ABNORMAL) Differential, auto (06/19/2022 8:54 PM CDT) Neutrophil abs 5.0 1.7 - 6.5 K/cumm [facility] Imm gran abs 0.1 0.0 - 0.1 K/cumm [facility] Lymphocyte abs 2.1 0.8 - 3.3 K/cumm [facility] Monocyte abs 1.2(H) 0.2 - 0.8 K/cumm [facility] Eosinophil abs 0.1 0.0 - 0.5 K/cumm [facility] Basophil abs 0.1 0.0 - 0.1 K/cumm [facility] Neutrophil pct 59.1 % [facility] Comment: Interpretive Data Percent cell count reference ranges are not reported, since discordance with absolute values may lead to misinterpretation of CBC data. Current Interpretive Data was last revised on 2017. Imm gran pct 0.7 % [facility] Comment: Interpretive Data Percent cell count reference ranges are not reported, since discordance with absolute values may lead to misinterpretation of CBC data. Current Interpretive Data was last revised on 2017. Lymphocyte pct 24.4 % [facility] Comment: Interpretive Data Percent cell count reference ranges are not reported, since discordance with absolute values may lead to misinterpretation of CBC data. Current Interpretive Data was last revised on 2017. Monocyte pct 13.7 % [facility] Comment: Interpretive Data Percent cell count reference ranges are not reported, since discordance with absolute values may lead to misinterpretation of CBC data. Current Interpretive Data was last revised on 2017. Eosinophil pct 1.3 % [facility] Comment: Interpretive Data Percent cell count reference ranges are not reported, since discordance with absolute values may lead to misinterpretation of CBC data. Current Interpretive Data was last revised on 2017. Basophil pct 0.8 % [facility] Comment: Interpretive Data Percent cell count reference ranges are not reported, since discordance with absolute values may lead to misinterpretation of CBC data. Current Interpretive Data was last revised on 2017. Blood 06/19/2022 8:54 PM CDT 06/19/2022 9:17 PM CDT Marcelina Lo COMMUNICATION SPECIALIST LAB BLOOD ORDERABLES Final Re sult Performing Organization Address [facility] de Phone Number [facility] [place] [address] * (ABNORMAL) Blood gas, arterial (06/19/2022 8:54 PM CDT) Pathologist [facility] [place] pH, Art 7.45 7.35 - 7.45 [facility] PCO2, Arterial 32(L) 35 - 45 mmHg [facility] PO2, Arterial 75(L) 83 - 108 mmHg [facility] HCO3 Art (Calculated) 23 20 - 30 mmol/L [facility] BE, art -1 mmol/L [facility] Comment: Interpretive Data No Reference Range Established Current Interpretive Data was last revised on 2017 O2 Sat Art (Measured) 95 90 - 95 % [facility] Blood 06/19/2022 8:54 PM CDT 06/19/2022 9:17 PM CDT Marcelina Lo NP LAB BLOOD ORDERABLES Final Re sult Performing Organization Address [facility] Co de Phone Number [facility] [place] [address] * aPTT (06/19/2022 8:54 PM CDT) Pathologist [facility] [place] aPTT 37 27 - 37 sec [facility] Comment: Interpretive Data Therapeutic heparin range: 60.0 - 94.0 seconds. Based on correlation with therapeutic heparin activity range of 0.3-0.7 Units/mL. Current interpretive data was last revised on 2020. Blood 06/19/2022 8:54 PM CDT 06/19/2022 9:30 PM CDT Narrative [facility] - 06/19/2022 9:38 PM CDT Draw [...] BLOOD ORDERABLES Final Result Performing Organization Address City/[facility]/ZIP Co de Phone Number [facility] Department [place] [address] * Lactate (06/19/2022 8:54 PM CDT) [facility] Lactate 1.3 0.7 - 2.0 mmol/L [facility] Blood 06/19/2022 8:54 PM CDT 06/19/2022 9:22 PM CDT Catherine Adams MD LAB BLOOD ORDERABLES Final Result [facility] Department [place] [address] * (ABNORMAL) Beta-hydroxybutyrate (06/19/2022 8:54 PM CDT) [facility] Beta-Hydroxybut yrate 0.7(H) 0.0 - 0.5 mmol/L [facility] Blood 06/19/2022 8:54 PM CDT 06/19/2022 9:17 PM CDT Marcelina Lo COMMUNICATION SPECIALIST LAB BLOOD ORDERABLES Final Re sult Performing Organization Address City/[facility]/ZIP Co de Phone Number [facility] Department [place] [address] * (ABNORMAL) Magnesium (06/19/2022 8:54 PM CDT) Magnesium 2.7(H) 1.4 - 2.5 mg/dL [facility] Blood 06/19/2022 8:54 PM CDT 06/19/2022 9:22 PM CDT Marcelina Lo COMMUNICATION SPECIALIST LAB BLOOD ORDERABLES Final Re sult Performing Organization Address [facility] Co de Phone Number [facility] Department [place] [address] * (ABNORMAL) Comprehensive metabolic panel (06/19/2022 8:54 PM CDT) Sodium 140 135 - 145 mmol/L [facility] Potassium, pl 4.8 3.3 - 4.9 mmol/L [facility] Chloride 102 97 - 110 mmol/L [facility] CO2 25 22 - 32 mmol/L [facility] Anion gap 13 2 - 15 mmol/L [facility] BUN 32(H) 8 - 25 mg/dL [facility] Creatinine 4.27(H) 0.80 - 1.30 mg/dL [facility] Glucose 148 70 - 199 mg/dL [facility] Comment: Interpretive Data Fasting glucose [...] 2017. Calcium 8.3(L) 8.5 - 10.3 mg/dL [facility] Bilirubin, total 0.5 0.1 - 1.2 mg/dL [facility] Protein, pl 6.1(L) 6.5 - 8.5 g/dL [facility] Albumin 2.9(L) 3.5 - 5.0 g/dL [facility] Alk phos 150(H) 40 - 130 Units/L [facility] ALT 32 7 - 55 Units/L [facility] AST 61(H) 10 - 50 Units/L [facility] Blood 06/19/2022 8:54 PM CDT 06/19/2022 9:22 PM CDT us Marcelina Lo COMMUNICATION SPECIALIST LAB BLOOD ORDERABLES Final Re sult [facility] Department [place] [address] * (ABNORMAL) CBC with auto differential (06/19/2022 8:54 PM CDT) WBC 8.4 3.8 - 9.9 K/cumm [facility] Hgb 6.8(L) 13.0 - 17.5 g/dL [facility] Comment:No apparent cause fo r delta. called ashley sandoval MD Hct 20.5(L) 38.9 - 50.3 % [facility] Plt 255 150 - 400 K/cumm [facility] MPV 9.6 9.1 - 12.3 fL [facility] RBC 2.15(L) 4.30 - 5.80 M/cumm [facility] MCV 95.3 81.3 - 96.4 fL [facility] MCH 31.6 27.1 - 33.3 pg [facility] MCHC 33.2 32.3 - 35.7 g/dL [facility] RDW CV 16.5(H) 11.1 - 14.9 % [facility] RDW SD 55.8(H) 35.7 - 48.1 fL [facility] NRBC abs 0.03(H) 0.00 - 0.01 K/cumm [facility] Blood 06/19/2022 8:54 PM CDT 06/19/2022 9:17 PM CDT us Marcelina Lo NP LAB BLOOD ORDERABLES Final Re sult Performing Organization Address [facility] Co de Phone Number [facility] [place] [address] * (ABNORMAL) POCT glucose (06/19/2022 4:59 PM CDT) Glucose, POC 205(H) 70 - 199 mg/dL [facility] Blood 06/19/2022 4:59 PM CDT 06/19/2022 4:59 PM CDT Catherine Adams MD LAB POCT ORDERABLES - DEVIC E Final Result Performing Organization Address [facility] Co de Phone Number [facility] [place] [address] * POCT glucose (06/19/2022 1:22 PM CDT) Glucose, POC 101 70 - 199 mg/dL [facility] Blood 06/19/2022 1:22 PM CDT 06/19/2022 1:22 PM CDT Catherine Adams MD LAB POCT ORDERABLES - DEVIC E Final Result Performing Organization Address [facility] Co de Phone Number [facility] [place] [address] * ECG 12 lead (06/19/2022 1:03 PM CDT) Ventricular Rate EKG/Min 126 BPM [facility] Atrial Rate 63 BPM [facility] QRS-Interval (MSEC) 106 ms [facility] QT-Interval (MSEC) 360 ms [facility] QTc 521 ms [facility] R [place] -53 degrees [facility] T [place] 125 degrees [facility] Diagnosis Atrial fibrillation with rapid ventricular response with premature ventricular or aberrantly conducted complexes Left axis deviation Poor precordial R wave progression Anterior infarct , age undetermined ST & T wave abnormality, consider lateral ischemia Abnormal ECG When compared with ECG of 18-JUN-2022 18:40, (unconfirmed) No significant change was found Confirmed by HUDSON SAL M.D ([id number]) on 06/22/2022 10:55:43 AM [facility] 06/19/2022 1:03 PM CDT 06/22/2022 10:55 AM CDT us Conrad Weston Chi, MD ECG ORDERABLES Final Res ult [facility] * US RUQ (06/19/2022 10:35 AM CDT) [...] Teresa Rivera M.D. us Catherine Adams MD [facility] [place]EDURES Final Res ult * (ABNORMAL) eGFR (06/19/2022 9:09 AM CDT) [facility] eGFR 13(L) 90 - 130 mL/min/1. 73 m2 [facility] Comment: Interpretive Data Reference Interval Normal [...] 06/19/2022 10:17 AM CDT us Marcelina Lo COMMUNICATION SPECIALIST LAB BLOOD ORDERABLES Final Re sult [facility] Department [place] [address] * Differential, auto (06/19/2022 9:09 AM CDT) Neutrophil abs 2.8 1.7 - 6.5 K/cumm [facility] Imm gran abs 0.0 0.0 - 0.1 K/cumm [facility] Lymphocyte abs 1.2 0.8 - 3.3 K/cumm [facility] Monocyte abs 0.7 0.2 - 0.8 K/cumm [facility] Eosinophil abs 0.1 0.0 - 0.5 K/cumm [facility] Basophil abs 0.1 0.0 - 0.1 K/cumm [facility] Neutrophil pct 56.1 % [facility] Comment: Interpretive Data Percent cell count reference ranges are not reported, since discordance with absolute values may lead to misinterpretation of CBC data. Current Interpretive Data was last revised on 2017. Imm gran pct 0.8 % [facility] Comment: Interpretive Data Percent cell count reference ranges are not reported, since discordance with absolute values may lead to misinterpretation of CBC data. Current Interpretive Data was last revised on 2017. Lymphocyte pct 24.9 % [facility] Comment: Interpretive Data Percent cell count reference ranges are not reported, since discordance with absolute values may lead to misinterpretation of CBC data. Current Interpretive Data was last revised on 2017. Monocyte pct 14.2 % [facility] Comment: Interpretive Data Percent cell count reference ranges are not reported, since discordance with absolute values may lead to misinterpretation of CBC data. Current Interpretive Data was last revised on 2017. Eosinophil pct 2.8 % [facility] Comment: Interpretive Data Percent cell count reference ranges are not reported, since discordance with absolute values may lead to misinterpretation of CBC data. Current Interpretive Data was last revised on 2017. Basophil pct 1.2 % [facility] Comment: Interpretive Data Percent cell count reference ranges are not reported, since discordance with absolute values may lead to misinterpretation of CBC data. Current Interpretive Data was last revised on 2017. Blood 06/19/2022 9:09 AM CDT 06/19/2022 10:25 AM CDT us Marcelina Lo COMMUNICATION SPECIALIST LAB BLOOD ORDERABLES Final Re sult [facility] Department [place] [address] * (ABNORMAL) Blood gas, arterial (06/19/2022 9:09 AM CDT) pH, Art 7.41 7.35 - 7.45 [facility] PCO2, Arterial 33(L) 35 - 45 mmHg [facility] PO2, Arterial 87 83 - 108 mmHg [facility] HCO3 Art (Calculated) 21 20 - 30 mmol/L [facility] BE, art -4 mmol/L [facility] Comment: Interpretive Data No Reference Range Established Current Interpretive Data was last revised on 2017 O2 Sat Art (Measured) 96(H) 90 - 95 % [facility] Blood 06/19/2022 9:09 AM CDT 06/19/2022 9:18 AM CDT Marcelina Lo COMMUNICATION SPECIALIST LAB BLOOD ORDERABLES Final Re sult Performing Organization Address [facility] Co de Phone Number [facility] Department [place] [address] * (ABNORMAL) Magnesium (06/19/2022 9:09 AM CDT) Pathologist [facility] [place] Magnesium 2.9(H) 1.4 - 2.5 mg/dL [facility] Blood 06/19/2022 9:09 AM CDT 06/19/2022 10:17 AM CDT Marcelina Lo COMMUNICATION SPECIALIST LAB BLOOD ORDERABLES Final Re sult Performing Organization Address [facility] de Phone Number [facility] [place] [address] * (ABNORMAL) Comprehensive metabolic panel (06/19/2022 9:09 AM CDT) [facility] Sodium 137 135 - 145 mmol/L [facility] Potassium, pl 4.6 3.3 - 4.9 mmol/L [facility] Chloride 101 97 - 110 mmol/L [facility] CO2 23 22 - 32 mmol/L [facility] Anion gap 13 2 - 15 mmol/L [facility] BUN 35(H) 8 - 25 mg/dL [facility] Creatinine 5.02(H) 0.80 - 1.30 mg/dL [facility] Glucose 205(H) 70 - 199 mg/dL [facility] Comment: Interpretive Data Fasting glucose [...] 2017. Calcium 8.4(L) 8.5 - 10.3 mg/dL [facility] Bilirubin, total 0.4 0.1 - 1.2 mg/dL [facility] Protein, pl 6.1(L) 6.5 - 8.5 g/dL [facility] Albumin 2.9(L) 3.5 - 5.0 g/dL [facility] Alk phos 156(H) 40 - 130 Units/L [facility] ALT 32 7 - 55 Units/L [facility] AST 54(H) 10 - 50 Units/L [facility] Blood 06/19/2022 9:09 AM CDT 06/19/2022 10:17 AM CDT us Marcelina Lo COMMUNICATION SPECIALIST LAB BLOOD ORDERABLES Final Re sult [facility] Department [place] [address] * (ABNORMAL) CBC with auto differential (06/19/2022 9:09 AM CDT) WBC 4.9 3.8 - 9.9 K/cumm [facility] Hgb 9.9(L) 13.0 - 17.5 g/dL [facility] Hct 31.5(L) 38.9 - 50.3 % [facility] Plt 237 150 - 400 K/cumm [facility] MPV 9.9 9.1 - 12.3 fL [facility] RBC 3.20(L) 4.30 - 5.80 M/cumm [facility] MCV 98.4(H) 81.3 - 96.4 fL [facility] MCH 30.9 27.1 - 33.3 pg [facility] MCHC 31.4(L) 32.3 - 35.7 g/dL [facility] RDW CV 16.4(H) 11.1 - 14.9 % [facility] RDW SD 57.2(H) 35.7 - 48.1 fL [facility] NRBC abs 0.00 0.00 - 0.01 K/cumm [facility] Blood 06/19/2022 9:09 AM CDT 06/19/2022 10:25 AM CDT us Marcelina Lo COMMUNICATION SPECIALIST LAB BLOOD ORDERABLES Final Re sult [facility] [place] [address] * (ABNORMAL) POCT glucose (06/19/2022 9:08 AM CDT) [facility] Signature Glucose, POC 217(H) 70 - 199 mg/dL [facility] Blood 06/19/2022 9:08 AM CDT 06/19/2022 9:08 AM CDT us Catherine Adams MD LAB POCT ORDERABLES - DEVIC E Final Result Performing Organization Address [facility] Co de Phone Number [facility] Department [place] [address] * XR Chest 1 View (06/19/2022 5:51 AM CDT) Anatomical Region Laterality Modality Body, Chest N/A Computed Radiogr aphy 06/19/2022 7:34 AM CDT Impressions 06/19/2022 7:34 AM CDT Comparison made to 06/18/2022. ??Right internal jugular catheter tip overlies the superior vena cava. ??Nasogastric tube tip located below diaphragm, not included on the [id number]. ??A tracheal tube tip located within the [...] located below diaphragm, not included on the [id number]. A tracheal tube tip located within the [...] 13(L) 90 - 130 mL/min/1. 73 m2 [facility] Comment: Interpretive Data Reference Interval Normal [...] 06/18/2022 11:02 PM CDT us Marcelina Lo COMMUNICATION SPECIALIST LAB BLOOD ORDERABLES Final Re sult Performing Organization Address City/[facility]/ZIP Co de Phone Number [facility] [place] [address] * Vancomycin level random (06/18/2022 10:50 PM CDT) Pathologist [facility] [place] Vancomycin random 38.4 mcg/mL [facility] Comment: Interpretive Data No reference ranges have been established for random drug levels. Current Interpretive Data was last revised on 2020. Blood 06/18/2022 10:5 0 PM CDT 06/18/2022 10:59 PM CDT us Catherine Adams MD LAB BLOOD ORDERABLES Final Result Performing Organization Address [facility] de Phone Number [facility] [place] [address] * (ABNORMAL) Differential, auto (06/18/2022 10:50 PM CDT) Pathologist [facility] [place] Neutrophil abs 5.0 1.7 - 6.5 K/cumm [facility] Imm gran abs 0.1 0.0 - 0.1 K/cumm [facility] Lymphocyte abs 1.7 0.8 - 3.3 K/cumm [facility] Monocyte abs 1.3(H) 0.2 - 0.8 K/cumm [facility] Eosinophil abs 0.2 0.0 - 0.5 K/cumm [facility] Basophil abs 0.1 0.0 - 0.1 K/cumm [facility] Neutrophil pct 60.3 % [facility] Comment: Interpretive Data Percent cell count reference ranges are not reported, since discordance with absolute values may lead to misinterpretation of CBC data. Current Interpretive Data was last revised on 2017. Imm gran pct 0.7 % [facility] Comment: Interpretive Data Percent cell count reference ranges are not reported, since discordance with absolute values may lead to misinterpretation of CBC data. Current Interpretive Data was last revised on 2017. Lymphocyte pct 20.4 % [facility] Comment: Interpretive Data Percent cell count reference ranges are not reported, since discordance with absolute values may lead to misinterpretation of CBC data. Current Interpretive Data was last revised on 2017. Monocyte pct 16.0 % [facility] Comment: Interpretive Data Percent cell count reference ranges are not reported, since discordance with absolute values may lead to misinterpretation of CBC data. Current Interpretive Data was last revised on 2017. Eosinophil pct 2.0 % [facility] Comment: Interpretive Data Percent cell count reference ranges are not reported, since discordance with absolute values may lead to misinterpretation of CBC data. Current Interpretive Data was last revised on 2017. Basophil pct 0.6 % [facility] Comment: Interpretive Data Percent cell count reference ranges are not reported, since discordance with absolute values may lead to misinterpretation of CBC data. Current Interpretive Data was last revised on 2017. Blood 06/18/2022 10:5 0 PM CDT 06/18/2022 10:59 PM CDT us Marcelina Lo NP LAB BLOOD ORDERABLES Final Re sult [facility] Department [place] [address] * Lactate (06/18/2022 10:50 PM CDT) Lactate 1.0 0.7 - 2.0 mmol/L [facility] Blood 06/18/2022 10:5 0 PM CDT 06/18/2022 11:02 PM CDT us Catherine Adams MD LAB BLOOD ORDERABLES Final Result Performing Organization Address [facility]/ZIP Co de Phone Number [facility] Department [place] [address] * (ABNORMAL) Triglycerides (06/18/2022 10:50 PM CDT) Triglycerides 226(H) <=149 mg/dL [facility] Comment: Interpretive Data Ages < [...] PM CDT 06/18/2022 10:59 PM CDT Narrative [facility] - 06/18/2022 11:57 PM CDT While on propofol infusion. us Catherine Adams MD LAB BLOOD ORDERABLES Final Result Performing Organization Address City/[facility]/ZIP Co de Phone Number [facility] [place] [address] * (ABNORMAL) Phosphorus (06/18/2022 10:50 PM CDT) Phosphorus, pl 5.2(H) 2.3 - 4.5 mg/dL [facility] Blood 06/18/2022 10:5 0 PM CDT 06/18/2022 10:59 PM CDT Marcelina Lo COMMUNICATION SPECIALIST LAB BLOOD ORDERABLES Final Re sult Performing Organization Address [facility] Co de Phone Number [facility] [place] [address] * (ABNORMAL) Beta-hydroxybutyrate (06/18/2022 10:50 PM CDT) Beta-Hydroxybut yrate 1.3(H) 0.0 - 0.5 mmol/L [facility] Blood 06/18/2022 10:5 0 PM CDT 06/18/2022 10:59 PM CDT Marcelina Lo COMMUNICATION SPECIALIST LAB BLOOD ORDERABLES Final Re sult Performing Organization Address [facility] Co de Phone Number [facility] [place] [address] * Lipase (06/18/2022 10:50 PM CDT) Lipase 22 10 - 99 Units/L [facility] Blood 06/18/2022 10:5 0 PM CDT 06/18/2022 10:59 PM CDT Marcelina Lo COMMUNICATION SPECIALIST LAB BLOOD ORDERABLES Final Re sult Performing Organization Address [facility] Co de Phone Number [facility] [place] [address] * (ABNORMAL) Magnesium (06/18/2022 10:50 PM CDT) Magnesium 3.1(H) 1.4 - 2.5 mg/dL [facility] Blood 06/18/2022 10:5 0 PM CDT 06/18/2022 11:02 PM CDT us Marcelina Lo NP LAB BLOOD ORDERABLES Final Re sult [facility] Department [place] [address] * (ABNORMAL) Comprehensive metabolic panel (06/18/2022 10:50 PM CDT) Sodium 140 135 - 145 mmol/L [facility] Potassium, pl 4.3 3.3 - 4.9 mmol/L [facility] Chloride 103 97 - 110 mmol/L [facility] CO2 22 22 - 32 mmol/L [facility] Anion gap 15 2 - 15 mmol/L [facility] BUN 35(H) 8 - 25 mg/dL [facility] Creatinine 5.01(H) 0.80 - 1.30 mg/dL [facility] Glucose 199 70 - 199 mg/dL [facility] Comment: Interpretive Data Fasting glucose >/= [...] 06/18/2022 11:02 PM CDT us Marcelina Lo COMMUNICATION SPECIALIST LAB BLOOD ORDERABLES Final Re sult Performing Organization Address [facility] Co de Phone Number [facility] Department [place] [address] * (ABNORMAL) CBC with auto differential (06/18/2022 10:50 PM CDT) [facility] WBC 8.4 3.8 - 9.9 K/cumm [facility] Hgb 7.5(L) 13.0 - 17.5 g/dL [facility] Hct 23.6(L) 38.9 - 50.3 % [facility] Plt 313 150 - 400 K/cumm [facility] MPV 9.8 9.1 - 12.3 fL [facility] RBC 2.41(L) 4.30 - 5.80 M/cumm [facility] MCV 97.9(H) 81.3 - 96.4 fL [facility] MCH 31.1 27.1 - 33.3 pg [facility] MCHC 31.8(L) 32.3 - 35.7 g/dL [facility] RDW CV 16.5(H) 11.1 - 14.9 % [facility] RDW SD 56.5(H) 35.7 - 48.1 fL [facility] NRBC abs 0.00 0.00 - 0.01 K/cumm [facility] Blood 06/18/2022 10:5 0 PM CDT 06/18/2022 10:59 PM CDT us Marcelina Lo COMMUNICATION SPECIALIST LAB BLOOD ORDERABLES Final Re sult Performing Organization Address City/[facility]/ZIP Co de Phone Number [facility] [place] [address] * (ABNORMAL) POCT glucose (06/18/2022 7:51 PM CDT) Glucose, POC 256(H) 70 - 199 mg/dL [facility] Blood 06/18/2022 7:51 PM CDT 06/18/2022 7:51 PM CDT Catherine Adams MD LAB POCT ORDERABLES - DEVIC E Final Result Performing Organization Address City/[facility]/ZIP Co de Phone Number [facility] [place] [address] * ECG 12 lead (06/18/2022 6:40 PM CDT) [facility] Ventricular Rate EKG/Min 133 BPM [facility] Atrial Rate 147 BPM [facility] QRS-Interval (MSEC) 102 ms [facility] QT-Interval (MSEC) 332 ms [facility] QTc 494 ms [facility] R [place] -43 degrees [facility] T [place] 123 degrees [facility] Diagnosis Atrial fibrillation with rapid ventricular response [...] BILLINGSLEY M.D ([id number]) on 06/21/2022 1:28:53 PM [facility] 06/18/2022 6:40 PM CDT 06/21/2022 1:28 PM CDT us Conrad Weston Chi, MD ECG ORDERABLES Final Res ult Performing Organization Address City/[facility]/ZIP Co de Phone Number [facility] * POCT glucose (06/18/2022 5:11 PM CDT) Glucose, POC 168 70 - 199 mg/dL [facility] Blood 06/18/2022 5:11 PM CDT 06/18/2022 5:11 PM CDT us Catherine Adams MD LAB POCT ORDERABLES - DEVIC E Final Result Performing Organization Address City/[facility]/ZIP Co de Phone Number [facility] [place] [address] * POCT glucose (06/18/2022 4:16 PM CDT) Glucose, POC 181 70 - 199 mg/dL [facility] Blood 06/18/2022 4:16 PM CDT 06/18/2022 4:16 PM CDT Catherine Adams MD LAB POCT ORDERABLES - DEVIC E Final Result Performing Organization Address [facility] de Phone Number [facility] [place] [address] * (ABNORMAL) POCT glucose (06/18/2022 2:38 PM CDT) Glucose, POC 264(H) 70 - 199 mg/dL [facility] Blood 06/18/2022 2:38 PM CDT 06/18/2022 2:38 PM CDT Catherine Adams MD LAB POCT ORDERABLES - DEVIC E Final Result Performing Organization Address [facility] Co de Phone Number [facility] Department [place] [address] * (ABNORMAL) POCT glucose (06/18/2022 1:34 PM CDT) Glucose, POC 376(H) 70 - 199 mg/dL [facility] Blood 06/18/2022 1:34 PM CDT 06/18/2022 1:34 PM CDT us Catherine Adams MD LAB POCT ORDERABLES - DEVIC E Final Result Performing Organization Address City/[facility] Co de Phone Number [facility] Department [place] [address] * (ABNORMAL) Beta-hydroxybutyrate (06/18/2022 1:32 PM CDT) Beta-Hydroxybut yrate 0.9(H) 0.0 - 0.5 mmol/L [facility] Blood 06/18/2022 1:32 PM CDT 06/18/2022 1:48 PM CDT Catherine Adams MD LAB BLOOD ORDERABLES Final Result Performing Organization Address [facility] Co de Phone Number [facility] Department [place] [address] * IR Central Line Placement > 5 [...] was obtained. ??Prior to beginning the procedure, [place] Protocol was used to confirm the patient's [...] was obtained. Prior to beginning the procedure, [place] Protocol was used to confirm the patient's [...] POC 170 70 - 199 mg/dL [facility] Blood 06/18/2022 11:3 4 AM CDT 06/18/2022 11:34 AM CDT us Catherine Adams MD LAB POCT ORDERABLES - DEVIC E Final Result Performing Organization Address City/[facility] Co de Phone Number [facility] [place] [address] * (ABNORMAL) Blood gas, arterial (06/18/2022 10:14 AM CDT) [facility] pH, Art 7.36 7.35 - 7.45 [facility] PCO2, Arterial 37 35 - 45 mmHg [facility] PO2, Arterial 74(L) 83 - 108 mmHg [facility] HCO3 Art (Calculated) 21 20 - 30 mmol/L [facility] BE, art -4 mmol/L [facility] Comment: Interpretive Data No Reference Range Established Current Interpretive Data was last revised on 2017 O2 Sat Art (Measured) 94 90 - 95 % [facility] Blood 06/18/2022 10:1 4 AM CDT 06/18/2022 10:23 AM CDT us Marcelina Lo NP LAB BLOOD ORDERABLES Final Re sult Performing Organization Address [facility] Co de Phone Number [facility] Department [place] [address] * POCT glucose (06/18/2022 10:13 AM CDT) [facility] Glucose, POC 83 70 - 199 mg/dL [facility] Blood 06/18/2022 10:1 3 AM CDT 06/18/2022 10:13 AM CDT Catherine Adams MD LAB POCT ORDERABLES - DEVIC E Final Result Performing Organization Address [facility] Co de Phone Number [facility] [place] [address] * (ABNORMAL) eGFR (06/18/2022 8:52 AM CDT) [...] 06/18/2022 9:01 AM CDT us Marcelina Lo COMMUNICATION SPECIALIST LAB BLOOD ORDERABLES Final Re sult [facility] Department of Laboratories [place], [place] [id number] * Vancomycin level random (06/18/2022 8:52 AM CDT) Pathologist [facility] [place] Vancomycin random 51.8 mcg/mL [facility] Comment: Repeated on Dilution Interpretive Data No reference ranges have been established for random drug levels. Current Interpretive Data was last revised on 2020. Blood 06/18/2022 8:52 AM CDT 06/18/2022 8:58 AM CDT us Catherine Adams MD LAB BLOOD ORDERABLES Final Result [facility] Department [place] [address] * (ABNORMAL) Differential, auto (06/18/2022 8:52 AM CDT) Neutrophil abs 5.2 1.7 - 6.5 K/cumm [facility] Imm gran abs 0.1 0.0 - 0.1 K/cumm [facility] Lymphocyte abs 1.8 0.8 - 3.3 K/cumm [facility] Monocyte abs 1.6(H) 0.2 - 0.8 K/cumm [facility] Eosinophil abs 0.2 0.0 - 0.5 K/cumm [facility] Basophil abs 0.1 0.0 - 0.1 K/cumm [facility] Neutrophil pct 58.4 % [facility] Comment: Interpretive Data Percent cell count reference ranges are not reported, since discordance with absolute values may lead to misinterpretation of CBC data. Current Interpretive Data was last revised on 2017. Imm gran pct 1.0 % [facility] Comment: Interpretive Data Percent cell count reference ranges are not reported, since discordance with absolute values may lead to misinterpretation of CBC data. Current Interpretive Data was last revised on 2017. Lymphocyte pct 19.8 % [facility] Comment: Interpretive Data Percent cell count reference ranges are not reported, since discordance with absolute values may lead to misinterpretation of CBC data. Current Interpretive Data was last revised on 2017. Monocyte pct 17.5 % [facility] Comment: Interpretive Data Percent cell count reference ranges are not reported, since discordance with absolute values may lead to misinterpretation of CBC data. Current Interpretive Data was last revised on 2017. Eosinophil pct 2.6 % [facility] Comment: Interpretive Data Percent cell count reference ranges are not reported, since discordance with absolute values may lead to misinterpretation of CBC data. Current Interpretive Data was last revised on 2017. Basophil pct 0.7 % [facility] Comment: Interpretive Data Percent cell count reference ranges are not reported, since discordance with absolute values may lead to misinterpretation of CBC data. Current Interpretive Data was last revised on 2017. Blood 06/18/2022 8:52 AM CDT 06/18/2022 8:58 AM CDT Marcelina Lo COMMUNICATION SPECIALIST LAB BLOOD ORDERABLES Final Re sult Performing Organization Address [facility] Co de Phone Number [facility] [place] [employer] [address] * (ABNORMAL) Magnesium (06/18/2022 8:52 AM CDT) [facility] Magnesium 2.9(H) 1.4 - 2.5 mg/dL [facility] Blood 06/18/2022 8:52 AM CDT 06/18/2022 8:58 AM CDT Marcelina Lo COMMUNICATION SPECIALIST LAB BLOOD ORDERABLES Final Re sult Performing Organization Address [facility] de Phone Number [facility] [place] [address] * (ABNORMAL) Comprehensive metabolic panel (06/18/2022 8:52 AM CDT) Pathologist [facility] [place] Sodium 143 135 - 145 mmol/L [facility] Potassium, pl 4.0 3.3 - 4.9 mmol/L [facility] Chloride 104 97 - 110 mmol/L [facility] CO2 23 22 - 32 mmol/L [facility] Anion gap 16(H) 2 - 15 mmol/L [facility] BUN 40(H) 8 - 25 mg/dL [facility] Creatinine 6.24(H) 0.80 - 1.30 mg/dL [facility] Glucose 116 70 - 199 mg/dL [facility] Comment: Interpretive Data Fasting glucose [...] 2017. Calcium 9.5 8.5 - 10.3 mg/dL [facility] Bilirubin, total 0.4 0.1 - 1.2 mg/dL [facility] Protein, pl 7.4 6.5 - 8.5 g/dL [facility] Albumin 3.3(L) 3.5 - 5.0 g/dL [facility] Alk phos 197(H) 40 - 130 Units/L [facility] ALT 36 7 - 55 Units/L [facility] AST 60(H) 10 - 50 Units/L [facility] Blood 06/18/2022 8:52 AM CDT 06/18/2022 8:58 AM CDT us Marcelina Lo NP LAB BLOOD ORDERABLES Final Re sult [facility] Department [place] [address] * (ABNORMAL) CBC with auto differential (06/18/2022 8:52 AM CDT) Pathologist [facility] [place] WBC 8.9 3.8 - 9.9 K/cumm [facility] Hgb 8.8(L) 13.0 - 17.5 g/dL [facility] Hct 27.1(L) 38.9 - 50.3 % [facility] Plt 283 150 - 400 K/cumm [facility] MPV 9.7 9.1 - 12.3 fL [facility] RBC 2.81(L) 4.30 - 5.80 M/cumm [facility] MCV 96.4 81.3 - 96.4 fL [facility] MCH 31.3 27.1 - 33.3 pg [facility] MCHC 32.5 32.3 - 35.7 g/dL [facility] RDW CV 16.2(H) 11.1 - 14.9 % [facility] RDW SD 54.0(H) 35.7 - 48.1 fL [facility] NRBC abs 0.00 0.00 - 0.01 K/cumm [facility] Blood 06/18/2022 8:52 AM CDT 06/18/2022 8:58 AM CDT us Marcelina Lo COMMUNICATION SPECIALIST LAB BLOOD ORDERABLES Final Re sult Performing Organization Address City/[facility] Co de Phone Number [facility] Department [place] [address] * POCT glucose (06/18/2022 8:49 AM CDT) Glucose, POC 109 70 - 199 mg/dL [facility] Blood 06/18/2022 8:49 AM CDT 06/18/2022 8:49 AM CDT us Catherine Adams MD LAB POCT ORDERABLES - DEVIC E Final Result Performing Organization Address City/[facility] Co de Phone Number [facility] Department [place] [address] * POCT glucose (06/18/2022 6:53 AM CDT) Glucose, POC 145 70 - 199 mg/dL [facility] Blood 06/18/2022 6:53 AM CDT 06/18/2022 6:53 AM CDT us Catherine Adams MD LAB POCT ORDERABLES - DEVIC E Final Result Performing Organization Address City/[facility]/ZIP Co de Phone Number [facility] Department [place] [address] * POCT glucose (06/18/2022 6:11 AM CDT) Glucose, POC 164 70 - 199 mg/dL [facility] Blood 06/18/2022 6:11 AM CDT 06/18/2022 6:11 AM CDT Catherine Adams MD LAB POCT ORDERABLES - DEVIC E Final Result [facility] Department [place] [address] * XR Chest 1 View (06/18/2022 5:48 [...] CDT) aPTT 63(H) 27 - 37 sec [facility] Comment: Interpretive Data Therapeutic heparin range: 60.0 - 94.0 seconds. Based on correlation with therapeutic heparin activity range of 0.3-0.7 Units/mL. Current interpretive data was last revised on 2020. Blood 06/18/2022 5:13 AM CDT 06/18/2022 5:42 AM CDT Narrative [facility] - 06/18/2022 6:05 AM CDT Draw STAT PTT 6 hrs after initiation of heparin infusion, draw STAT PTT 6 hours after each dose/rate change, and every 6 hours until 2 consecutive PTTs are within therapeutic range. Once two consecutive PTT's are therapeutic (60-94.9 seconds), then draw PTT every AM until heparin is discontinued. Catherine Adams MD LAB BLOOD ORDERABLES Final Result [facility] Department [place] [address] * (ABNORMAL) Blood gas, arterial (06/18/2022 5:13 AM CDT) pH, Art 7.33(L) 7.35 - 7.45 [facility] PCO2, Arterial 39 35 - 45 mmHg [facility] PO2, Arterial 92 83 - 108 mmHg [facility] HCO3 Art (Calculated) 21 20 - 30 mmol/L [facility] BE, art -5 mmol/L [facility] Comment: Interpretive Data No Reference Range Established Current Interpretive Data was last revised on 2017 O2 Sat Art (Measured) 96(H) 90 - 95 % [facility] Blood 06/18/2022 5:13 AM CDT 06/18/2022 5:34 AM CDT us Marcelina Lo NP LAB BLOOD ORDERABLES Final Re sult Performing Organization Address City/[facility]/ZIP Co de Phone Number [facility] [place] [address] * (ABNORMAL) POCT glucose (06/18/2022 5:10 AM CDT) Glucose, POC 205(H) 70 - 199 mg/dL [facility] Blood 06/18/2022 5:10 AM CDT 06/18/2022 5:10 AM CDT Catherine Adams MD LAB POCT ORDERABLES - DEVIC E Final Result Performing Organization Address City/[facility] Co de Phone Number [facility] Department [place] [employer] [address] * POCT glucose (06/18/2022 4:08 AM CDT) Glucose, POC 186 70 - 199 mg/dL [facility] Blood 06/18/2022 4:08 AM CDT 06/18/2022 4:08 AM CDT Catherine Adams MD LAB POCT ORDERABLES - DEVIC E Final Result Performing Organization Address City/[facility]/ZIP Co de Phone Number [facility] [place] [address] * POCT glucose (06/18/2022 3:24 AM CDT) Glucose, POC 179 70 - 199 mg/dL [facility] Blood 06/18/2022 3:24 AM CDT 06/18/2022 3:24 AM CDT us Catherine Adams MD LAB POCT ORDERABLES - DEVIC E Final Result Performing Organization Address City/[facility] Co de Phone Number [facility] [place] [address] * POCT glucose (06/18/2022 2:25 AM CDT) Glucose, POC 132 70 - 199 mg/dL [facility] Blood 06/18/2022 2:25 AM CDT 06/18/2022 2:25 AM CDT us Catherine Adams MD LAB POCT ORDERABLES - DEVIC E Final Result Performing Organization Address [facility] de Phone Number [facility] [place] [address] * POCT glucose (06/18/2022 1:27 AM CDT) Glucose, POC 105 70 - 199 mg/dL [facility] Blood 06/18/2022 1:27 AM CDT 06/18/2022 1:27 AM CDT us Catherine Adams MD LAB POCT ORDERABLES - DEVIC E Final Result Performing Organization Address [facility] [place] [address] * POCT glucose (06/17/2022 10:45 PM CDT) Glucose, POC 138 70 - 199 mg/dL [facility] Blood 06/17/2022 10:4 5 PM CDT 06/17/2022 10:45 PM CDT us Catherine Adams MD LAB POCT ORDERABLES - DEVIC E Final Result Performing Organization Address [facility] Co de Phone Number [facility] [place] [address] * (ABNORMAL) Hemoglobin and hematocrit (06/17/2022 10:31 PM CDT) [facility] Hgb 7.9(L) 13.0 - 17.5 g/dL [facility] Hct 24.0(L) 38.9 - 50.3 % [facility] Blood 06/17/2022 10:3 1 PM CDT 06/17/2022 10:45 PM CDT Tyra De La Torre MD LAB BLOOD ORDERABLES Final Resu lt Performing Organization Address [facility] [place] [address] * Type and screen (06/17/2022 10:31 PM CDT) [facility] Maribel, indirect Negative [facility] ABO Rh A Positive [facility] Blood 06/17/2022 10:3 1 PM CDT 06/17/2022 10:53 PM CDT Narrative [facility] - 06/17/2022 11:49 PM CDT Has the patient had Daratumumab or Isatuximab in the past 6 months?->Unknown us Catherine Adams MD LAB BLOOD BANK TEST ORDERAB LES Final Result Performing Organization Address [facility] Co de Phone Number [facility] [place] [address] * (ABNORMAL) eGFR (06/17/2022 9:17 PM CDT) [facility] eGFR 11(L) 90 - 130 mL/min/1. 73 m2 [facility] Comment: Interpretive Data Reference Interval Normal [...] BLOOD ORDERABLES Final Result Performing Organization Address [facility] Co de Phone Number [facility] Department [place] [address] * (ABNORMAL) Magnesium (06/17/2022 9:17 PM CDT) Magnesium 2.9(H) 1.4 - 2.5 mg/dL [facility] Blood 06/17/2022 9:17 PM CDT 06/17/2022 9:27 PM CDT Catherine Adams MD LAB BLOOD ORDERABLES Final Result Performing Organization Address [facility] de Phone Number [facility] Department [place] [address] * (ABNORMAL) Comprehensive metabolic panel (06/17/2022 9:17 PM CDT) Sodium 142 135 - 145 mmol/L [facility] Potassium, pl 3.2(L) 3.3 - 4.9 mmol/L [facility] Chloride 104 97 - 110 mmol/L [facility] CO2 23 22 - 32 mmol/L [facility] Anion gap 15 2 - 15 mmol/L [facility] BUN 41(H) 8 - 25 mg/dL [facility] Creatinine 5.65(H) 0.80 - 1.30 mg/dL [facility] Glucose 121 70 - 199 mg/dL [facility] Comment: Interpretive Data Fasting glucose [...] 2017. Calcium 9.3 8.5 - 10.3 mg/dL [facility] Bilirubin, total 0.4 0.1 - 1.2 mg/dL [facility] Protein, pl 6.4(L) 6.5 - 8.5 g/dL [facility] Albumin 2.7(L) 3.5 - 5.0 g/dL [facility] Alk phos 181(H) 40 - 130 Units/L [facility] ALT 33 7 - 55 Units/L [facility] AST 52(H) 10 - 50 Units/L [facility] Blood 06/17/2022 9:17 PM CDT 06/17/2022 9:27 PM CDT us Catherine Adams MD LAB BLOOD ORDERABLES Final Result [facility] Department [place] [address] * (ABNORMAL) Differential, auto (06/17/2022 9:17 PM CDT) Neutrophil abs 4.5 1.7 - 6.5 K/cumm [facility] Imm gran abs 0.1 0.0 - 0.1 K/cumm [facility] Lymphocyte abs 1.5 0.8 - 3.3 K/cumm [facility] Monocyte abs 1.4(H) 0.2 - 0.8 K/cumm [facility] Eosinophil abs 0.3 0.0 - 0.5 K/cumm [facility] Basophil abs 0.0 0.0 - 0.1 K/cumm [facility] Neutrophil pct 58.5 % [facility] Comment: Interpretive Data Percent cell count reference ranges are not reported, since discordance with absolute values may lead to misinterpretation of CBC data. Current Interpretive Data was last revised on 2017. Imm gran pct 1.0 % [facility] Comment: Interpretive Data Percent cell count reference ranges are not reported, since discordance with absolute values may lead to misinterpretation of CBC data. Current Interpretive Data was last revised on 2017. Lymphocyte pct 19.0 % [facility] Comment: Interpretive Data Percent cell count reference ranges are not reported, since discordance with absolute values may lead to misinterpretation of CBC data. Current Interpretive Data was last revised on 2017. Monocyte pct 17.6 % [facility] Comment: Interpretive Data Percent cell count reference ranges are not reported, since discordance with absolute values may lead to misinterpretation of CBC data. Current Interpretive Data was last revised on 2017. Eosinophil pct 3.5 % [facility] Comment: Interpretive Data Percent cell count reference ranges are not reported, since discordance with absolute values may lead to misinterpretation of CBC data. Current Interpretive Data was last revised on 2017. Basophil pct 0.4 % [facility] Comment: Interpretive Data Percent cell count reference ranges are not reported, since discordance with absolute values may lead to misinterpretation of CBC data. Current Interpretive Data was last revised on 2017. Blood 06/17/2022 9:17 PM CDT 06/17/2022 9:26 PM CDT Marcelina Lo COMMUNICATION SPECIALIST LAB BLOOD ORDERABLES Final Re sult Performing Organization Address [facility] Co de Phone Number [facility] [place] [address] * Lactate (06/17/2022 9:17 PM CDT) Lactate 1.3 0.7 - 2.0 mmol/L [facility] Blood 06/17/2022 9:17 PM CDT 06/17/2022 9:29 PM CDT Catherine Adams MD LAB BLOOD ORDERABLES Final Result Performing Organization Address [facility] de Phone Number [facility] Department [place] [address] * (ABNORMAL) Triglycerides (06/17/2022 9:17 PM CDT) Triglycerides 272(H) <=149 mg/dL [facility] Comment: Interpretive Data Ages < [...] PM CDT 06/17/2022 9:27 PM CDT Narrative [facility] - 06/17/2022 10:11 PM CDT While on propofol infusion. Catherine Adams MD LAB BLOOD ORDERABLES Final Result Performing Organization Address City/[facility]/ZIP Co de Phone Number [facility] [place] [address] * (ABNORMAL) Phosphorus (06/17/2022 9:17 PM CDT) Phosphorus, pl 5.8(H) 2.3 - 4.5 mg/dL [facility] Blood 06/17/2022 9:17 PM CDT 06/17/2022 9:27 PM CDT Marcelina Lo COMMUNICATION SPECIALIST LAB BLOOD ORDERABLES Final Re sult Performing Organization Address [facility] Co de Phone Number [facility] [place] [address] * Beta-hydroxybutyrate (06/17/2022 9:17 PM CDT) Beta-Hydroxybut yrate 0.1 0.0 - 0.5 mmol/L [facility] Blood 06/17/2022 9:17 PM CDT 06/17/2022 9:26 PM CDT Marcelina Lo COMMUNICATION SPECIALIST LAB BLOOD ORDERABLES Final Re sult Performing Organization Address City/[facility] Co de Phone Number [facility] Department [place] [address] * Lipase (06/17/2022 9:17 PM CDT) Pathologist [facility] [place] Lipase 22 10 - 99 Units/L [facility] Blood 06/17/2022 9:17 PM CDT 06/17/2022 9:27 PM CDT Marcelina Lo COMMUNICATION SPECIALIST LAB BLOOD ORDERABLES Final Re sult [facility] One [facility] Department [place] [address] * (ABNORMAL) CBC with auto differential (06/17/2022 9:17 PM CDT) [facility] WBC 7.7 3.8 - 9.9 K/cumm [facility] Hgb 6.2(C) 13.0 - 17.5 g/dL [facility] Comment:Critical result call ed to and read back by MINERVA CLINTON RN on 06 17 2022 at 2214 to BRIAN BATES. Hct 19.1(L) 38.9 - 50.3 % [facility] Plt 300 150 - 400 K/cumm [facility] MPV 10.1 9.1 - 12.3 fL [facility] RBC 1.98(L) 4.30 - 5.80 M/cumm [facility] MCV 96.5(H) 81.3 - 96.4 fL [facility] MCH 31.3 27.1 - 33.3 pg [facility] MCHC 32.5 32.3 - 35.7 g/dL [facility] RDW CV 15.9(H) 11.1 - 14.9 % [facility] RDW SD 50.9(H) 35.7 - 48.1 fL [facility] NRBC abs 0.00 0.00 - 0.01 K/cumm [facility] Blood 06/17/2022 9:17 PM CDT 06/17/2022 9:26 PM CDT Marcelina Lo COMMUNICATION SPECIALIST LAB BLOOD ORDERABLES Final Re sult Performing Organization Address [facility] Co de Phone Number [facility] Department [place] [address] * POCT glucose (06/17/2022 8:52 PM CDT) Glucose, POC 129 70 - 199 mg/dL [facility] Blood 06/17/2022 8:52 PM CDT 06/17/2022 8:52 PM CDT Catherine Adams MD LAB POCT ORDERABLES - DEVIC E Final Result Performing Organization Address [facility] de Phone Number [facility] Department [place] [address] * POCT glucose (06/17/2022 7:40 PM CDT) Glucose, POC 118 70 - 199 mg/dL [facility] Blood 06/17/2022 7:40 PM CDT 06/17/2022 7:40 PM CDT Catherine Adams MD LAB POCT ORDERABLES - DEVIC E Final Result Performing Organization Address [facility] Co de Phone Number [facility] Department [place] [address] * NM INSJ NON-TUNNELED CENTRAL VENOUS CATH AGE 3 YR/> (06/17/2022 7:30 PM CDT) Narrative Rufino Flores MD - 06/17/2022 7:30 PM CDT Aj Poe MD ? 06/17/2022 ??7:37 PM Central Line Insertion Date/Time: 06/17/2022 7:30 PM Performed by: Aj Poe MD Authorized by: Aj Poe MD [place] Protocol: RN Notified of Procedure: yes ?? Informed consent: ??Patient/operations representative/guardian agrees and accepts and risks, benefits, [...] Glucose, POC 133 70 - 199 mg/dL [facility] Blood 06/17/2022 5:11 PM CDT 06/17/2022 5:11 PM CDT us Catherine Adams MD LAB POCT ORDERABLES - DEVIC E Final Result [facility] One [facility] Department [place] [address] * POCT glucose (06/17/2022 3:01 PM CDT) Glucose, POC 142 70 - 199 mg/dL [facility] Blood 06/17/2022 3:01 PM CDT 06/17/2022 3:01 PM CDT Catherine Adams MD LAB POCT ORDERABLES - DEVIC E Final Result Performing Organization Address City/[facility]/ZIP Co de Phone Number [facility] Department [place] [address] * POCT glucose (06/17/2022 1:50 PM CDT) Glucose, POC 141 70 - 199 mg/dL [facility] Blood 06/17/2022 1:50 PM CDT 06/17/2022 1:50 PM CDT Catherine Adams MD LAB POCT ORDERABLES - DEVIC E Final Result Performing Organization Address City/[facility] Co de Phone Number [facility] Department [place] [address] * POCT glucose (06/17/2022 12:59 PM CDT) Glucose, POC 151 70 - 199 mg/dL [facility] Blood 06/17/2022 12:5 9 PM CDT 06/17/2022 12:59 PM CDT Catherine Adams MD LAB POCT ORDERABLES - DEVIC E Final Result Performing Organization Address City/[facility] Co de Phone Number [facility] [place] [address] * POCT glucose (06/17/2022 11:55 AM CDT) Glucose, POC 167 70 - 199 mg/dL [facility] Blood 06/17/2022 11:5 5 AM CDT 06/17/2022 11:55 AM CDT us Catherine Adams MD LAB POCT ORDERABLES - DEVIC E Final Result Performing Organization Address City/[facility] Co de Phone Number [facility] [place] [address] * POCT glucose (06/17/2022 10:51 AM CDT) Glucose, POC 185 70 - 199 mg/dL [facility] Blood 06/17/2022 10:5 1 AM CDT 06/17/2022 10:51 AM CDT Catheirne Adams MD LAB POCT ORDERABLES - DEVIC E Final Result Performing Organization Address City/[facility] Co de Phone Number [facility] [place] [employer] [place] [address] * POCT glucose (06/17/2022 10:11 AM CDT) Glucose, POC 119 70 - 199 mg/dL [facility] Blood 06/17/2022 10:1 1 AM CDT 06/17/2022 10:11 AM CDT Catherine Adams MD LAB POCT ORDERABLES - DEVIC E Final Result Performing Organization Address City/[facility] Co de Phone Number [facility] [place] [address] * POCT glucose (06/17/2022 9:39 AM CDT) Glucose, POC 181 70 - 199 mg/dL [facility] Blood 06/17/2022 9:39 AM CDT 06/17/2022 9:39 AM CDT Catherine Adams MD LAB POCT ORDERABLES - DEVIC E Final Result Performing Organization Address [facility] Co de Phone Number [facility] Department [place] [address] * Blood culture Blood (06/17/2022 8:13 AM CDT) Report Final Report: No growth [facility] Blood 06/17/2022 8:13 AM CDT 06/17/2022 [...] organism identification may be performed using the [employer] Gram-Positive Blood Culture Assay. This assay detects microbial DNA in positive blood culture broth via hybridization of target DNA to capture oligonucleotides on a microarray. This assay has been cleared by the [place] Food and Drug Administration and its performance characteristics have been verified by the [facility] Microbiology Laboratory. 5. ?For questions about this culture, contact the Microbiology Laboratory at [phone]. Interpretive data was last revised on 2020. Catherine Adams MD LAB MICROBIOLOGY - GENERAL ORDERABLES Final Result Performing Organization Address City/[facility]/ZIP Co de Phone Number [facility] Billie [facility] Department [place] [address] * Blood culture Blood (06/17/2022 8:13 AM [...] organism identification may be performed using the [employer] Gram-Positive Blood Culture Assay. This assay detects microbial DNA in positive blood culture broth via hybridization of target DNA to capture oligonucleotides on a microarray. This assay has been cleared by the [place] Food and Drug Administration and its performance characteristics have been verified by the [facility] Microbiology Laboratory. 5. ?For questions about this culture, contact the Microbiology Laboratory at [phone]. Interpretive data was last revised on 2020. Catherine Adams MD LAB MICROBIOLOGY - GENERAL ORDERABLES Final Result [facility] Billie [facility] Department [place] [address] * (ABNORMAL) eGFR (06/17/2022 8:02 AM CDT) eGFR 13(L) 90 - 130 mL/min/1. 73 m2 [facility] Comment: Interpretive Data Reference Interval Normal [...] NP LAB BLOOD ORDERABLES Final Re sult [facility] One [facility] Department of Laboratories [place], [place] [id number] * (ABNORMAL) Differential, auto (06/17/2022 8:02 AM CDT) Pathologist [facility] [place] Neutrophil abs 5.2 1.7 - 6.5 K/cumm [facility] Imm gran abs 0.1 0.0 - 0.1 K/cumm [facility] Lymphocyte abs 1.6 0.8 - 3.3 K/cumm [facility] Monocyte abs 1.3(H) 0.2 - 0.8 K/cumm [facility] Eosinophil abs 0.2 0.0 - 0.5 K/cumm [facility] Basophil abs 0.1 0.0 - 0.1 K/cumm [facility] Neutrophil pct 61.7 % [facility] Comment: Interpretive Data Percent cell count reference ranges are not reported, since discordance with absolute values may lead to misinterpretation of CBC data. Current Interpretive Data was last revised on 2017. Imm gran pct 1.3 % [facility] Comment: Interpretive Data Percent cell count reference ranges are not reported, since discordance with absolute values may lead to misinterpretation of CBC data. Current Interpretive Data was last revised on 2017. Lymphocyte pct 18.6 % [facility] Comment: Interpretive Data Percent cell count reference ranges are not reported, since discordance with absolute values may lead to misinterpretation of CBC data. Current Interpretive Data was last revised on 2017. Monocyte pct 15.2 % [facility] Comment: Interpretive Data Percent cell count reference ranges are not reported, since discordance with absolute values may lead to misinterpretation of CBC data. Current Interpretive Data was last revised on 2017. Eosinophil pct 2.6 % [facility] Comment: Interpretive Data Percent cell count reference ranges are not reported, since discordance with absolute values may lead to misinterpretation of CBC data. Current Interpretive Data was last revised on 2017. Basophil pct 0.6 % [facility] Comment: Interpretive Data Percent cell count reference ranges are not reported, since discordance with absolute values may lead to misinterpretation of CBC data. Current Interpretive Data was last revised on 2017. Blood 06/17/2022 8:02 AM CDT 06/17/2022 8:25 AM CDT us Marcelina Lo NP LAB BLOOD ORDERABLES Final Re sult [facility] One [facility] Department [place] [address] * (ABNORMAL) Magnesium (06/17/2022 8:02 AM CDT) Magnesium 2.9(H) 1.4 - 2.5 mg/dL [facility] Blood 06/17/2022 8:02 AM CDT 06/17/2022 8:25 AM CDT us Marcelina Lo COMMUNICATION SPECIALIST LAB BLOOD ORDERABLES Final Re sult [facility] One [facility] Department [place] [address] * (ABNORMAL) Comprehensive metabolic panel (06/17/2022 8:02 AM CDT) Sodium 140 135 - 145 mmol/L [facility] Potassium, pl 3.9 3.3 - 4.9 mmol/L [facility] Chloride 104 97 - 110 mmol/L [facility] CO2 24 22 - 32 mmol/L [facility] Anion gap 12 2 - 15 mmol/L [facility] BUN 41(H) 8 - 25 mg/dL [facility] Creatinine 5.16(H) 0.80 - 1.30 mg/dL [facility] Glucose 206(H) 70 - 199 mg/dL [facility] Comment: Interpretive Data Fasting glucose [...] 2017. Calcium 9.1 8.5 - 10.3 mg/dL [facility] Bilirubin, total 0.4 0.1 - 1.2 mg/dL [facility] Protein, pl 6.9 6.5 - 8.5 g/dL [facility] Albumin 3.0(L) 3.5 - 5.0 g/dL [facility] Alk phos 199(H) 40 - 130 Units/L [facility] ALT 35 7 - 55 Units/L [facility] AST 43 10 - 50 Units/L [facility] Blood 06/17/2022 8:02 AM CDT 06/17/2022 8:25 AM CDT Marcelina Lo COMMUNICATION SPECIALIST LAB BLOOD ORDERABLES Final Re sult Performing Organization Address City/[facility]/ZIP Co de Phone Number [facility] One [facility] Department [place] [address] * (ABNORMAL) CBC with auto differential (06/17/2022 8:02 AM CDT) WBC 8.5 3.8 - 9.9 K/cumm [facility] Hgb 7.9(L) 13.0 - 17.5 g/dL [facility] Hct 24.6(L) 38.9 - 50.3 % [facility] Plt 262 150 - 400 K/cumm [facility] MPV 10.1 9.1 - 12.3 fL [facility] RBC 2.55(L) 4.30 - 5.80 M/cumm [facility] MCV 96.5(H) 81.3 - 96.4 fL [facility] MCH 31.0 27.1 - 33.3 pg [facility] MCHC 32.1(L) 32.3 - 35.7 g/dL [facility] RDW CV 15.6(H) 11.1 - 14.9 % [facility] RDW SD 49.9(H) 35.7 - 48.1 fL [facility] NRBC abs 0.00 0.00 - 0.01 K/cumm [facility] Blood 06/17/2022 8:02 AM CDT 06/17/2022 8:25 AM CDT Marcelina Lo COMMUNICATION SPECIALIST LAB BLOOD ORDERABLES Final Re sult Performing Organization Address City/State/[facility] Co de Phone Number [facility] Department [place] [address] * (ABNORMAL) POCT glucose (06/17/2022 7:37 AM CDT) Glucose, POC 202(H) 70 - 199 mg/dL [facility] Blood 06/17/2022 7:37 AM CDT 06/17/2022 7:37 AM CDT us Catherine Adams MD LAB POCT ORDERABLES - DEVIC E Final Result Performing Organization Address [facility] [place] [address] * (ABNORMAL) aPTT (06/17/2022 6:14 AM CDT) aPTT 64(H) 27 - 37 sec [facility] Comment: Interpretive Data Therapeutic heparin range: 60.0 - 94.0 seconds. Based on correlation with therapeutic heparin activity range of 0.3-0.7 Units/mL. Current interpretive data was last revised on 2020. Blood 06/17/2022 6:14 AM CDT 06/17/2022 7:27 AM CDT Narrative [facility] - 06/17/2022 7:50 AM CDT Draw [...] BLOOD ORDERABLES Final Result Performing Organization Address [facility] Co de Phone Number [facility] [place] [address] * (ABNORMAL) POCT glucose (06/17/2022 6:13 AM CDT) Glucose, POC 234(H) 70 - 199 mg/dL [facility] Blood 06/17/2022 6:13 AM CDT 06/17/2022 6:13 AM CDT Catherine Adams MD LAB POCT ORDERABLES - DEVIC E Final Result [facility] One [facility] Department [place] [address] * XR Chest 1 View (06/17/2022 5:29 [...] POCT glucose (06/17/2022 4:53 AM CDT) Pathologist [facility] [place] Glucose, POC 176 70 - 199 mg/dL [facility] Blood 06/17/2022 4:53 AM CDT 06/17/2022 4:53 AM CDT Catherine Adams MD LAB POCT ORDERABLES - DEVIC E Final Result Performing Organization Address [facility] de Phone Number [facility] [place] [address] * (ABNORMAL) Blood gas, arterial (06/17/2022 3:46 AM CDT) [facility] pH, Art 7.32(L) 7.35 - 7.45 [facility] PCO2, Arterial 44 35 - 45 mmHg [facility] PO2, Arterial 93 83 - 108 mmHg [facility] HCO3 Art (Calculated) 24 20 - 30 mmol/L [facility] BE, art -3 mmol/L [facility] Comment: Interpretive Data No Reference Range Established Current Interpretive Data was last revised on 2017 O2 Sat Art (Measured) 96(H) 90 - 95 % [facility] Blood 06/17/2022 3:46 AM CDT 06/17/2022 3:52 AM CDT Marcelina Lo COMMUNICATION SPECIALIST LAB BLOOD ORDERABLES Final Re sult Performing Organization Address [facility] de Phone Number [facility] [place] [address] * POCT glucose (06/17/2022 3:44 AM CDT) Glucose, POC 94 70 - 199 mg/dL [facility] Blood 06/17/2022 3:44 AM CDT 06/17/2022 3:44 AM CDT Catherine Adams MD LAB POCT ORDERABLES - DEVIC E Final Result Performing Organization Address City/[facility] Co de Phone Number [facility] [place] [address] * POCT glucose (06/17/2022 2:52 AM CDT) Glucose, POC 119 70 - 199 mg/dL [facility] Blood 06/17/2022 2:52 AM CDT 06/17/2022 2:52 AM CDT Catherine Adams MD LAB POCT ORDERABLES - DEVIC E Final Result Performing Organization Address [facility] Co de Phone Number [facility] [place] [address] * POCT glucose (06/17/2022 1:52 AM CDT) Glucose, POC 127 70 - 199 mg/dL [facility] Blood 06/17/2022 1:52 AM CDT 06/17/2022 1:52 AM CDT Catherine Adams MD LAB POCT ORDERABLES - DEVIC E Final Result Performing Organization Address City/[facility] de Phone Number [facility] [place] [address] * POCT glucose (06/17/2022 12:36 AM CDT) Glucose, POC 165 70 - 199 mg/dL [facility] Blood 06/17/2022 12:3 6 AM CDT 06/17/2022 12:36 AM CDT Catherine Adams MD LAB POCT ORDERABLES - DEVIC E Final Result Performing Organization Address [facility] de Phone Number [facility] [place] [address] * (ABNORMAL) aPTT (06/17/2022 12:36 AM CDT) aPTT 67(H) 27 - 37 sec [facility] Comment: Interpretive Data Therapeutic heparin range: 60.0 - 94.0 seconds. Based on correlation with therapeutic heparin activity range of 0.3-0.7 Units/mL. Current interpretive data was last revised on 2020. Blood 06/17/2022 12:3 6 AM CDT 06/17/2022 1:04 AM CDT Narrative [facility] - 06/17/2022 1:09 AM CDT Draw [...] BLOOD ORDERABLES Final Result Performing Organization Address [facility] de Phone Number [facility] Department [place] [address] * (ABNORMAL) Blood gas, arterial (06/16/2022 11:19 PM CDT) pH, Art 7.38 7.35 - 7.45 [facility] PCO2, Arterial 37 35 - 45 mmHg [facility] PO2, Arterial 99 83 - 108 mmHg [facility] HCO3 Art (Calculated) 22 20 - 30 mmol/L [facility] BE, art -3 mmol/L [facility] Comment: Interpretive Data No Reference Range Established Current Interpretive Data was last revised on 2017 O2 Sat Art (Measured) 97(H) 90 - 95 % [facility] Blood 06/16/2022 11:1 9 PM CDT 06/16/2022 11:24 PM CDT us Marcelina Lo COMMUNICATION SPECIALIST LAB BLOOD ORDERABLES Final Re sult Performing Organization Address [facility] Co de Phone Number [facility] [place] [address] * POCT glucose (06/16/2022 11:11 PM CDT) Glucose, POC 172 70 - 199 mg/dL [facility] Blood 06/16/2022 11:1 1 PM CDT 06/16/2022 11:11 PM CDT us Catherine Adams MD LAB POCT ORDERABLES - DEVIC E Final Result Performing Organization Address [facility] Co de Phone Number [facility] [place] [address] * POCT glucose (06/16/2022 10:07 PM CDT) Glucose, POC 166 70 - 199 mg/dL [facility] Blood 06/16/2022 10:0 7 PM CDT 06/16/2022 10:07 PM CDT us Catherine Adams MD LAB POCT ORDERABLES - DEVIC E Final Result Performing Organization Address City/[facility] Co de Phone Number [facility] [place] [address] * XR Chest 1 View (06/16/2022 9:03 [...] * (ABNORMAL) eGFR (06/16/2022 8:52 PM CDT) [facility] eGFR 14(L) 90 - 130 mL/min/1. 73 m2 [facility] Comment: Interpretive Data Reference Interval Normal [...] 06/16/2022 9:10 PM CDT us Marcelina Lo COMMUNICATION SPECIALIST LAB BLOOD ORDERABLES Final Re sult [facility] One [facility] Department [place] [address] * (ABNORMAL) Differential, auto (06/16/2022 8:52 PM CDT) Pathologist [facility] [place] Neutrophil abs 5.4 1.7 - 6.5 K/cumm [facility] Imm gran abs 0.2(H) 0.0 - 0.1 K/cumm [facility] Lymphocyte abs 1.0 0.8 - 3.3 K/cumm [facility] Monocyte abs 1.1(H) 0.2 - 0.8 K/cumm [facility] Eosinophil abs 0.2 0.0 - 0.5 K/cumm [facility] Basophil abs 0.0 0.0 - 0.1 K/cumm [facility] Neutrophil pct 68.6 % [facility] Comment: Interpretive Data Percent cell count reference ranges are not reported, since discordance with absolute values may lead to misinterpretation of CBC data. Current Interpretive Data was last revised on 2017. Imm gran pct 2.0 % [facility] Comment: Interpretive Data Percent cell count reference ranges are not reported, since discordance with absolute values may lead to misinterpretation of CBC data. Current Interpretive Data was last revised on 2017. Lymphocyte pct 12.9 % [facility] Comment: Interpretive Data Percent cell count reference ranges are not reported, since discordance with absolute values may lead to misinterpretation of CBC data. Current Interpretive Data was last revised on 2017. Monocyte pct 14.3 % [facility] Comment: Interpretive Data Percent cell count reference ranges are not reported, since discordance with absolute values may lead to misinterpretation of CBC data. Current Interpretive Data was last revised on 2017. Eosinophil pct 1.9 % [facility] Comment: Interpretive Data Percent cell count reference ranges are not reported, since discordance with absolute values may lead to misinterpretation of CBC data. Current Interpretive Data was last revised on 2017. Basophil pct 0.3 % [facility] Comment: Interpretive Data Percent cell count reference ranges are not reported, since discordance with absolute values may lead to misinterpretation of CBC data. Current Interpretive Data was last revised on 2017. Blood 06/16/2022 8:52 PM CDT 06/16/2022 9:02 PM CDT us Marcelina Lo NP LAB BLOOD ORDERABLES Final Re sult [facility] Department [place] [address] * Lactate (06/16/2022 8:52 PM CDT) Lactate 1.1 0.7 - 2.0 mmol/L [facility] Blood 06/16/2022 8:52 PM CDT 06/16/2022 9:10 PM CDT us Catherine Adams MD LAB BLOOD ORDERABLES Final Result Performing Organization Address [facility] Co de Phone Number [facility] Department [place] [address] * (ABNORMAL) Triglycerides (06/16/2022 8:52 PM CDT) Pathologist [facility] [place] Triglycerides 253(H) <=149 mg/dL [facility] Comment: Interpretive Data Ages < [...] PM CDT 06/16/2022 9:10 PM CDT Narrative [facility] - 06/16/2022 9:44 PM CDT While on propofol infusion. Catherine Adams MD LAB BLOOD ORDERABLES Final Result Performing Organization Address [facility] de Phone Number [facility] Department [place] [address] * (ABNORMAL) Phosphorus (06/16/2022 8:52 PM CDT) Pathologist [facility] [place] Phosphorus, pl 5.4(H) 2.3 - 4.5 mg/dL [facility] Blood 06/16/2022 8:52 PM CDT 06/16/2022 9:10 PM CDT Marcelina Lo COMMUNICATION SPECIALIST LAB BLOOD ORDERABLES Final Re sult Performing Organization Address [facility] Co de Phone Number [facility] [place] [employer] [place] [address] * Beta-hydroxybutyrate (06/16/2022 8:52 PM CDT) Pathologist [facility] [place] Beta-Hydroxybut yrate 0.1 0.0 - 0.5 mmol/L [facility] Blood 06/16/2022 8:52 PM CDT 06/16/2022 9:02 PM CDT Marcelina Lo COMMUNICATION SPECIALIST LAB BLOOD ORDERABLES Edited R esult - Final Performing Organization Address [facility] Co de Phone Number [facility] [place] [address] * Lipase (06/16/2022 8:52 PM CDT) Lipase 26 10 - 99 Units/L [facility] Blood 06/16/2022 8:52 PM CDT 06/16/2022 9:10 PM CDT Marcelina Lo COMMUNICATION SPECIALIST LAB BLOOD ORDERABLES Final Re sult Performing Organization Address [facility] Co de Phone Number [facility] [employer] [place], [place] [id number] * (ABNORMAL) Magnesium (06/16/2022 8:52 PM CDT) Magnesium 3.0(H) 1.4 - 2.5 mg/dL [facility] Blood 06/16/2022 8:52 PM CDT 06/16/2022 9:10 PM CDT us Marcelina Lo NP LAB BLOOD ORDERABLES Final Re sult [facility] Department [place] [address] * (ABNORMAL) Comprehensive metabolic panel (06/16/2022 8:52 PM CDT) Pathologist [facility] [place] Sodium 140 135 - 145 mmol/L [facility] Potassium, pl 4.0 3.3 - 4.9 mmol/L [facility] Chloride 104 97 - 110 mmol/L [facility] CO2 25 22 - 32 mmol/L [facility] Anion gap 11 2 - 15 mmol/L [facility] BUN 36(H) 8 - 25 mg/dL [facility] Creatinine 4.65(H) 0.80 - 1.30 mg/dL [facility] Glucose 197 70 - 199 mg/dL [facility] Comment: Interpretive Data Fasting glucose [...] CDT 06/16/2022 9:10 PM CDT Marcelina Lo COMMUNICATION SPECIALIST LAB BLOOD ORDERABLES Final Re sult Performing Organization Address [facility] Co de Phone Number [facility] Department [place] [address] * (ABNORMAL) CBC with auto differential (06/16/2022 8:52 PM CDT) Pathologist [facility] [place] WBC 7.9 3.8 - 9.9 K/cumm [facility] Hgb 7.4(L) 13.0 - 17.5 g/dL [facility] Hct 22.8(L) 38.9 - 50.3 % [facility] Plt 214 150 - 400 K/cumm [facility] MPV 10.1 9.1 - 12.3 fL [facility] RBC 2.41(L) 4.30 - 5.80 M/cumm [facility] MCV 94.6 81.3 - 96.4 fL [facility] MCH 30.7 27.1 - 33.3 pg [facility] MCHC 32.5 32.3 - 35.7 g/dL [facility] RDW CV 14.9 11.1 - 14.9 % [facility] RDW SD 47.8 35.7 - 48.1 fL [facility] NRBC abs 0.00 0.00 - 0.01 K/cumm [facility] Blood 06/16/2022 8:52 PM CDT 06/16/2022 9:02 PM CDT Marcelina Lo COMMUNICATION SPECIALIST LAB BLOOD ORDERABLES Final Re sult Performing Organization Address City/[facility]/ZIP Co de Phone Number [facility] Department [place] [address] * (ABNORMAL) POCT glucose (06/16/2022 8:06 PM CDT) Glucose, POC 230(H) 70 - 199 mg/dL [facility] Blood 06/16/2022 8:06 PM CDT 06/16/2022 8:06 PM CDT Catherine Adams MD LAB POCT ORDERABLES - DEVIC E Final Result Performing Organization Address [facility] de Phone Number [facility] [place] [address] * (ABNORMAL) POCT glucose (06/16/2022 7:16 PM CDT) Glucose, POC 250(H) 70 - 199 mg/dL [facility] Blood 06/16/2022 7:16 PM CDT 06/16/2022 7:16 PM CDT Catherine Adams MD LAB POCT ORDERABLES - DEVIC E Final Result Performing Organization Address [facility] de Phone Number [facility] [place] [address] * (ABNORMAL) POCT glucose (06/16/2022 5:52 PM CDT) Glucose, POC 328(H) 70 - 199 mg/dL [facility] Blood 06/16/2022 5:52 PM CDT 06/16/2022 5:52 PM CDT Catherine Adams MD LAB POCT ORDERABLES - DEVIC E Final Result Performing Organization Address [facility] [place] [address] * (ABNORMAL) aPTT (06/16/2022 4:49 PM CDT) aPTT 58(H) 27 - 37 sec [facility] Comment: Interpretive Data Therapeutic heparin range: 60.0 - 94.0 seconds. Based on correlation with therapeutic heparin activity range of 0.3-0.7 Units/mL. Current interpretive data was last revised on 2020. Blood 06/16/2022 4:49 PM CDT 06/16/2022 4:55 PM CDT Narrative [facility] - 06/16/2022 5:35 PM CDT Draw [...] BLOOD ORDERABLES Final Result Performing Organization Address City/[facility]/ZIP Co de Phone Number [facility] Department [place] [address] * (ABNORMAL) POCT glucose (06/16/2022 4:41 PM CDT) Pathologist [facility] [place] Glucose, POC 305(H) 70 - 199 mg/dL [facility] Blood 06/16/2022 4:41 PM CDT 06/16/2022 4:41 PM CDT Catherine Adams MD LAB POCT ORDERABLES - DEVIC E Final Result Performing Organization Address City/[facility] Co de Phone Number [facility] Department [place] [address] * (ABNORMAL) Blood gas, arterial (06/16/2022 3:31 PM CDT) pH, Art 7.41 7.35 - 7.45 [facility] PCO2, Arterial 36 35 - 45 mmHg [facility] PO2, Arterial 82(L) 83 - 108 mmHg [facility] HCO3 Art (Calculated) 23 20 - 30 mmol/L [facility] BE, art -1 mmol/L [facility] Comment: Interpretive Data No Reference Range Established Current Interpretive Data was last revised on 2017 O2 Sat Art (Measured) 96(H) 90 - 95 % [facility] Blood 06/16/2022 3:31 PM CDT 06/16/2022 3:38 PM CDT us Marcelina Lo COMMUNICATION SPECIALIST LAB BLOOD ORDERABLES Final Re sult Performing Organization Address [facility] Co de Phone Number [facility] [place] [address] * (ABNORMAL) POCT glucose (06/16/2022 3:27 PM CDT) Glucose, POC 316(H) 70 - 199 mg/dL [facility] Blood 06/16/2022 3:27 PM CDT 06/16/2022 3:27 PM CDT Catherine Adams MD LAB POCT ORDERABLES - DEVIC E Final Result Performing Organization Address [facility] Co de Phone Number [facility] Department [place] [address] * (ABNORMAL) POCT glucose (06/16/2022 1:00 PM CDT) Glucose, POC 327(H) 70 - 199 mg/dL [facility] Blood 06/16/2022 1:00 PM CDT 06/16/2022 1:00 PM CDT Catherine Adams MD LAB POCT ORDERABLES - DEVIC E Final Result Performing Organization Address City/[facility] Co de Phone Number [facility] [place] [address] * (ABNORMAL) eGFR (06/16/2022 12:57 PM CDT) eGFR 15(L) 90 - 130 mL/min/1. 73 m2 [facility] Comment: Interpretive Data Reference Interval Normal [...] City/State/[facility] Co de Phone Number [facility] Department [place] [address] * (ABNORMAL) Basic metabolic panel (06/16/2022 12:57 PM CDT) Pathologist [facility] [place] Sodium 137 135 - 145 mmol/L [facility] Potassium, pl 3.9 3.3 - 4.9 mmol/L [facility] Chloride 101 97 - 110 mmol/L [facility] CO2 26 22 - 32 mmol/L [facility] Anion gap 10 2 - 15 mmol/L [facility] BUN 33(H) 8 - 25 mg/dL [facility] Creatinine 4.34(H) 0.80 - 1.30 mg/dL [facility] Glucose 340(H) 70 - 199 mg/dL [facility] Comment: Interpretive Data Fasting glucose [...] 2017. Calcium 9.0 8.5 - 10.3 mg/dL [facility] Blood 06/16/2022 12:5 7 PM CDT 06/16/2022 2:29 PM CDT us Catherine Adams MD LAB BLOOD ORDERABLES Final Result Performing Organization Address City/[facility] Co de Phone Number [facility] Department [place] [address] * (ABNORMAL) Blood gas, arterial (06/16/2022 10:54 AM CDT) pH, Art 7.40 7.35 - 7.45 [facility] PCO2, Arterial 38 35 - 45 mmHg [facility] PO2, Arterial 66(L) 83 - 108 mmHg [facility] HCO3 Art (Calculated) 24 20 - 30 mmol/L [facility] BE, art -1 mmol/L [facility] Comment: Interpretive Data No Reference Range Established Current Interpretive Data was last revised on 2017 O2 Sat Art (Measured) 92 90 - 95 % [facility] Blood 06/16/2022 10:5 4 AM CDT 06/16/2022 11:01 AM CDT us Marcelina Lo NP LAB BLOOD ORDERABLES Final Re sult [facility] [place] [address] * (ABNORMAL) POCT glucose (06/16/2022 10:50 AM CDT) Glucose, POC 393(H) 70 - 199 mg/dL [facility] Blood 06/16/2022 10:5 0 AM CDT 06/16/2022 10:50 AM CDT Catherine Adams MD LAB POCT ORDERABLES - DEVIC E Final Result Performing Organization Address [place]/[facility] [place] [address] * (ABNORMAL) aPTT (06/16/2022 9:14 AM CDT) aPTT 54(H) 27 - 37 sec [facility] Comment: Interpretive Data Therapeutic heparin range: 60.0 - 94.0 seconds. Based on correlation with therapeutic heparin activity range of 0.3-0.7 Units/mL. Current interpretive data was last revised on 2020. Blood 06/16/2022 9:14 AM CDT 06/16/2022 9:33 AM CDT Narrative [facility] - 06/16/2022 9:58 AM CDT Draw [...] BLOOD ORDERABLES Final Result Performing Organization Address [facility] Co de Phone Number [facility] Department [place] [address] * Beta-hydroxybutyrate (06/16/2022 7:54 AM CDT) Beta-Hydroxybut yrate 0.1 0.0 - 0.5 mmol/L [facility] Blood 06/16/2022 7:54 AM CDT 06/16/2022 8:10 AM CDT Catherine Adams MD LAB BLOOD ORDERABLES Final Result Performing Organization Address City/State/[facility] Co de Phone Number [facility] Department [place] [address] * (ABNORMAL) eGFR (06/16/2022 7:54 AM CDT) Pathologist [facility] [place] eGFR 16(L) 90 - 130 mL/min/1. 73 m2 [facility] Comment: Interpretive Data Reference Interval Normal [...] 06/16/2022 8:06 AM CDT us Marcelina Lo COMMUNICATION SPECIALIST LAB BLOOD ORDERABLES Final Re sult [facility] Department [place] [address] * (ABNORMAL) Differential, auto (06/16/2022 7:54 AM CDT) Neutrophil abs 6.3 1.7 - 6.5 K/cumm [facility] Imm gran abs 0.4(H) 0.0 - 0.1 K/cumm [facility] Lymphocyte abs 1.0 0.8 - 3.3 K/cumm [facility] Monocyte abs 1.2(H) 0.2 - 0.8 K/cumm [facility] Eosinophil abs 0.2 0.0 - 0.5 K/cumm [facility] Basophil abs 0.0 0.0 - 0.1 K/cumm [facility] Neutrophil pct 69.4 % [facility] Comment: Interpretive Data Percent cell count reference ranges are not reported, since discordance with absolute values may lead to misinterpretation of CBC data. Current Interpretive Data was last revised on 2017. Imm gran pct 4.3 % [facility] Comment: Interpretive Data Percent cell count reference ranges are not reported, since discordance with absolute values may lead to misinterpretation of CBC data. Current Interpretive Data was last revised on 2017. Lymphocyte pct 11.0 % [facility] Comment: Interpretive Data Percent cell count reference ranges are not reported, since discordance with absolute values may lead to misinterpretation of CBC data. Current Interpretive Data was last revised on 2017. [facility] 13.3 % [facility] Comment: Interpretive Data Percent cell count reference ranges are not reported, since discordance with absolute values may lead to misinterpretation of CBC data. Current Interpretive Data was last revised on 2017. Eosinophil pct 1.7 % [facility] Comment: Interpretive Data Percent cell count reference ranges are not reported, since discordance with absolute values may lead to misinterpretation of CBC data. Current Interpretive Data was last revised on 2017. Basophil pct 0.3 % [facility] Comment: Interpretive Data Percent cell count reference ranges are not reported, since discordance with absolute values may lead to misinterpretation of CBC data. Current Interpretive Data was last revised on 2017. Blood 06/16/2022 7:54 AM CDT 06/16/2022 8:06 AM CDT Marcelina Lo COMMUNICATION SPECIALIST LAB BLOOD ORDERABLES Final Re sult Performing Organization Address [facility] Co de Phone Number [facility] Department [place] [address] * (ABNORMAL) Blood gas, arterial (06/16/2022 7:54 AM CDT) pH, Art 7.44 7.35 - 7.45 [facility] PCO2, Arterial 35 35 - 45 mmHg [facility] PO2, Arterial 58(L) 83 - 108 mmHg [facility] HCO3 Art (Calculated) 25 20 - 30 mmol/L [facility] BE, art 0 mmol/L [facility] Comment: Interpretive Data No Reference Range Established Current Interpretive Data was last revised on 2017 O2 Sat Art (Measured) 90 90 - 95 % [facility] Blood 06/16/2022 7:54 AM CDT 06/16/2022 8:01 AM CDT us Catherine Adams MD LAB BLOOD ORDERABLES Final Result Performing Organization Address [facility] Co de Phone Number [facility] Department [place] [address] * (ABNORMAL) Magnesium (06/16/2022 7:54 AM CDT) Magnesium 2.9(H) 1.4 - 2.5 mg/dL [facility] Blood 06/16/2022 7:54 AM CDT 06/16/2022 8:06 AM CDT us Marcelina Lo COMMUNICATION SPECIALIST LAB BLOOD ORDERABLES Final Re sult [facility] Department [place] [address] * (ABNORMAL) Comprehensive metabolic panel (06/16/2022 7:54 AM CDT) Sodium 136 135 - 145 mmol/L [facility] Potassium, pl 4.2 3.3 - 4.9 mmol/L [facility] Chloride 100 97 - 110 mmol/L [facility] CO2 26 22 - 32 mmol/L [facility] Anion gap 10 2 - 15 mmol/L [facility] BUN 33(H) 8 - 25 mg/dL [facility] Creatinine 4.13(H) 0.80 - 1.30 mg/dL [facility] Glucose 434(H) 70 - 199 mg/dL [facility] Comment: Interpretive Data Fasting glucose [...] 2017. Calcium 8.9 8.5 - 10.3 mg/dL [facility] Bilirubin, total 0.4 0.1 - 1.2 mg/dL [facility] Protein, pl 6.2(L) 6.5 - 8.5 g/dL [facility] Albumin 3.1(L) 3.5 - 5.0 g/dL [facility] Alk phos 218(H) 40 - 130 Units/L [facility] ALT 36 7 - 55 Units/L [facility] AST 42 10 - 50 Units/L [facility] Blood 06/16/2022 7:54 AM CDT 06/16/2022 8:06 AM CDT Marcelina Lo COMMUNICATION SPECIALIST LAB BLOOD ORDERABLES Final Re sult Performing Organization Address [facility] Co de Phone Number [facility] Department [place] [employer] [address] * (ABNORMAL) CBC with auto differential (06/16/2022 7:54 AM CDT) [facility] WBC 9.1 3.8 - 9.9 K/cumm [facility] Hgb 7.5(L) 13.0 - 17.5 g/dL [facility] Hct 22.8(L) 38.9 - 50.3 % [facility] Plt 214 150 - 400 K/cumm [facility] MPV 10.1 9.1 - 12.3 fL [facility] RBC 2.42(L) 4.30 - 5.80 M/cumm [facility] MCV 94.2 81.3 - 96.4 fL [facility] MCH 31.0 27.1 - 33.3 pg [facility] MCHC 32.9 32.3 - 35.7 g/dL [facility] RDW CV 14.6 11.1 - 14.9 % [facility] RDW SD 46.9 35.7 - 48.1 fL [facility] NRBC abs 0.02(H) 0.00 - 0.01 K/cumm [facility] Blood 06/16/2022 7:54 AM CDT 06/16/2022 8:06 AM CDT us Marcelina Lo COMMUNICATION SPECIALIST LAB BLOOD ORDERABLES Final Re sult [facility] [employer] [place], [place] [id number] * (ABNORMAL) POCT glucose (06/16/2022 7:52 AM CDT) Glucose, POC 408(H) 70 - 199 mg/dL [facility] Blood 06/16/2022 7:52 AM CDT 06/16/2022 7:52 AM CDT Catherine Adams MD LAB POCT ORDERABLES - DEVIC E Final Result Performing Organization Address City/[facility] Co de Phone Number [facility] Department [place] [address] * (ABNORMAL) POCT glucose (06/16/2022 4:52 AM CDT) [facility] Glucose, POC 425(H) 70 - 199 mg/dL [facility] Blood 06/16/2022 4:52 AM CDT 06/16/2022 4:52 AM CDT Catherine Adams MD LAB POCT ORDERABLES - DEVIC E Final Result Performing Organization Address [facility] Phone Number [facility] Department [place] [address] * XR Chest 1 View (06/16/2022 4:43 AM CDT) Anatomical Region Laterality Modality Body, Chest N/A Computed Radiogr aphy 06/16/2022 9:29 AM CDT Impressions 06/16/2022 11:17 AM CDT Comparison is made to 06/15/2022. Endotracheal tube tip is difficult to see but likely terminates approximately 6.4 cm above the boni. Gastric tube terminates below left diaphragm and out of the [id number]. There are small lung volumes. Airspace opacity [...] below left diaphragm and out of the [id number]. There are small lung volumes. Airspace opacity [...] Glucose, POC 239(H) 70 - 199 mg/dL [facility] Blood 06/16/2022 12:0 1 AM CDT 06/16/2022 12:01 AM CDT us Catherine Adams MD LAB POCT ORDERABLES - DEVIC E Final Result [facility] Department [place] [address] * (ABNORMAL) aPTT (06/16/2022 12:01 AM CDT) aPTT 53(H) 27 - 37 sec [facility] Comment: Interpretive Data Therapeutic heparin range: 60.0 - 94.0 seconds. Based on correlation with therapeutic heparin activity range of 0.3-0.7 Units/mL. Current interpretive data was last revised on 2020. Blood 06/16/2022 12:0 1 AM CDT 06/16/2022 12:14 AM CDT Narrative [facility] - 06/16/2022 12:36 AM CDT Draw [...] City/State/[facility] Co de Phone Number [facility] Department [place] [address] * (ABNORMAL) CBC without differential (06/16/2022 12:01 AM CDT) WBC 11.1(H) 3.8 - 9.9 K/cumm [facility] Hgb 7.4(L) 13.0 - 17.5 g/dL [facility] Hct 22.6(L) 38.9 - 50.3 % [facility] Plt 215 150 - 400 K/cumm [facility] MPV 10.3 9.1 - 12.3 fL [facility] RBC 2.38(L) 4.30 - 5.80 M/cumm [facility] MCV 95.0 81.3 - 96.4 fL [facility] MCH 31.1 27.1 - 33.3 pg [facility] MCHC 32.7 32.3 - 35.7 g/dL [facility] RDW CV 14.4 11.1 - 14.9 % [facility] RDW SD 46.4 35.7 - 48.1 fL [facility] NRBC abs 0.05(H) 0.00 - 0.01 K/cumm [facility] Blood 06/16/2022 12:0 1 AM CDT 06/16/2022 12:22 AM CDT Narrative [facility] - 06/16/2022 12:29 AM CDT While on heparin infusion Catherine Adams MD LAB BLOOD ORDERABLES Final Result Performing Organization Address [facility]/ZIP Co de Phone Number [facility] Department [place] [address] * (ABNORMAL) eGFR (06/15/2022 8:51 PM CDT) eGFR 17(L) 90 - 130 mL/min/1. 73 m2 [facility] Comment: Interpretive Data Reference Interval Normal [...] ORDERABLES Final Re sult ALESSANDRA CARRION One [facility] Department [place] [address] * (ABNORMAL) Differential, auto (06/15/2022 8:51 PM CDT) Neutrophil abs 8.6(H) 1.7 - 6.5 K/cumm [facility] Imm gran abs 0.8(H) 0.0 - 0.1 K/cumm [facility] Lymphocyte abs 1.4 0.8 - 3.3 K/cumm [facility] Monocyte abs 1.7(H) 0.2 - 0.8 K/cumm [facility] Eosinophil abs 0.2 0.0 - 0.5 K/cumm [facility] Basophil abs 0.0 0.0 - 0.1 K/cumm [facility] Neutrophil pct 67.7 % [facility] Comment: Interpretive Data Percent cell count reference ranges are not reported, since discordance with absolute values may lead to misinterpretation of CBC data. Current Interpretive Data was last revised on 2017. Imm gran pct 6.1 % [facility] Comment: Interpretive Data Percent cell count reference ranges are not reported, since discordance with absolute values may lead to misinterpretation of CBC data. Current Interpretive Data was last revised on 2017. Lymphocyte pct 11.2 % [facility] Comment: Interpretive Data Percent cell count reference ranges are not reported, since discordance with absolute values may lead to misinterpretation of CBC data. Current Interpretive Data was last revised on 2017. Monocyte pct 13.3 % [facility] Comment: Interpretive Data Percent cell count reference ranges are not reported, since discordance with absolute values may lead to misinterpretation of CBC data. Current Interpretive Data was last revised on 2017. Eosinophil pct 1.5 % [facility] Comment: Interpretive Data Percent cell count reference ranges are not reported, since discordance with absolute values may lead to misinterpretation of CBC data. Current Interpretive Data was last revised on 2017. Basophil pct 0.2 % [facility] Comment: Interpretive Data Percent cell count reference ranges are not reported, since discordance with absolute values may lead to misinterpretation of CBC data. Current Interpretive Data was last revised on 2017. Blood 06/15/2022 8:51 PM CDT 06/15/2022 9:34 PM CDT us Marcelina Lo NP LAB BLOOD ORDERABLES Final Re sult Performing Organization Address City/[facility]/ZIP Co de Phone Number [facility] One [facility] Department [place] [address] * (ABNORMAL) Triglycerides (06/15/2022 8:51 PM CDT) Triglycerides 227(H) <=149 mg/dL [facility] Comment: Interpretive Data Ages < [...] PM CDT 06/15/2022 9:33 PM CDT Narrative [facility] - 06/15/2022 10:00 PM CDT While on propofol infusion. us Catherine Adams MD LAB BLOOD ORDERABLES Final Result Performing Organization Address [facility]/ZIP Co de Phone Number [facility] One [facility] Department [place] [address] * (ABNORMAL) Phosphorus (06/15/2022 8:51 PM CDT) Phosphorus, pl 5.0(H) 2.3 - 4.5 mg/dL [facility] Blood 06/15/2022 8:51 PM CDT 06/15/2022 9:33 PM CDT Marcelina Lo COMMUNICATION SPECIALIST LAB BLOOD ORDERABLES Final Re sult Performing Organization Address [facility] Co de Phone Number [facility] Department [place] [employer] [address] * Beta-hydroxybutyrate (06/15/2022 8:51 PM CDT) [facility] Beta-Hydroxybut yrate 0.2 0.0 - 0.5 mmol/L [facility] Blood 06/15/2022 8:51 PM CDT 06/15/2022 9:26 PM CDT Marcelina Lo COMMUNICATION SPECIALIST LAB BLOOD ORDERABLES Edited R esult - Final Performing Organization Address [facility] Co de Phone Number [facility] [place] [employer] [address] * Lipase (06/15/2022 8:51 PM CDT) Pathologist [facility] [place] Lipase 27 10 - 99 Units/L [facility] Blood 06/15/2022 8:51 PM CDT 06/15/2022 9:33 PM CDT Marcelina Lo COMMUNICATION SPECIALIST LAB BLOOD ORDERABLES Final Re sult Performing Organization Address [facility] Co de Phone Number [facility] [place] [address] * (ABNORMAL) Magnesium (06/15/2022 8:51 PM CDT) Magnesium 3.2(H) 1.4 - 2.5 mg/dL [facility] Blood 06/15/2022 8:51 PM CDT 06/15/2022 9:34 PM CDT us Marcelina Lo COMMUNICATION SPECIALIST LAB BLOOD ORDERABLES Final Re sult [facility] One [facility] Department [place] [address] * (ABNORMAL) Comprehensive metabolic panel (06/15/2022 8:51 PM CDT) Sodium 137 135 - 145 mmol/L [facility] Potassium, pl 4.6 3.3 - 4.9 mmol/L [facility] Chloride 101 97 - 110 mmol/L [facility] CO2 26 22 - 32 mmol/L [facility] Anion gap 10 2 - 15 mmol/L [facility] BUN 29(H) 8 - 25 mg/dL [facility] Creatinine 3.93(H) 0.80 - 1.30 mg/dL [facility] Glucose 179 70 - 199 mg/dL [facility] Comment: Interpretive Data Fasting glucose [...] 2017. Calcium 9.5 8.5 - 10.3 mg/dL [facility] Bilirubin, total 0.5 0.1 - 1.2 mg/dL [facility] Protein, pl 6.5 6.5 - 8.5 g/dL [facility] Albumin 3.0(L) 3.5 - 5.0 g/dL [facility] Alk phos 235(H) 40 - 130 Units/L [facility] ALT 36 7 - 55 Units/L [facility] AST 50 10 - 50 Units/L [facility] Blood 06/15/2022 8:51 PM CDT 06/15/2022 9:34 PM CDT us Marcelina Lo COMMUNICATION SPECIALIST LAB BLOOD ORDERABLES Final Re sult Performing Organization Address [facility] de Phone Number [facility] Department [place] [address] * (ABNORMAL) CBC with auto differential (06/15/2022 8:51 PM CDT) [facility] WBC 12.7(H) 3.8 - 9.9 K/cumm [facility] Hgb 7.2(L) 13.0 - 17.5 g/dL [facility] Hct 21.9(L) 38.9 - 50.3 % [facility] Plt 204 150 - 400 K/cumm [facility] MPV 10.4 9.1 - 12.3 fL [facility] RBC 2.30(L) 4.30 - 5.80 M/cumm [facility] MCV 95.2 81.3 - 96.4 fL [facility] MCH 31.3 27.1 - 33.3 pg [facility] MCHC 32.9 32.3 - 35.7 g/dL [facility] RDW CV 14.6 11.1 - 14.9 % [facility] RDW SD 47.4 35.7 - 48.1 fL [facility] NRBC abs 0.05(H) 0.00 - 0.01 K/cumm [facility] Blood 06/15/2022 8:51 PM CDT 06/15/2022 9:34 PM CDT us Marcelina Lo COMMUNICATION SPECIALIST LAB BLOOD ORDERABLES Final Re sult Performing Organization Address [facility] Co de Phone Number [facility] [place] [address] * POCT glucose (06/15/2022 8:49 PM CDT) Glucose, POC 183 70 - 199 mg/dL [facility] Blood 06/15/2022 8:49 PM CDT 06/15/2022 8:49 PM CDT Catherine Adams MD LAB POCT ORDERABLES - DEVIC E Final Result Performing Organization Address [facility] Co de Phone Number [facility] Department [place] [address] * C. difficile testing Stool (06/15/2022 6:15 PM CDT) Pathologist [facility] [place] C. diff result Negative, free toxin Negative , free toxin [facility] C. diff interp Negative for toxigenic Clostridioides (Clostridium) difficile. Analysis was performed using a glutatmate dehydrogenase antigen detection assay combined with a C. difficile toxin detection assay. [facility] Stool 06/15/2022 6:15 PM CDT 06/15/2022 8:14 PM CDT Narrative [facility] - 06/15/2022 11:02 PM CDT Testing for C. difficile is not recommended within 4 days of a negative result, 10 days of a positive, or 24 hours after laxative administration. If this order is clinically indicated, contact the lab and enter the passcode to complete this order.->[id number] Catherine Adams MD LAB MICROBIOLOGY - GENERAL ORDERABLES Final Result Performing Organization Address City/[facility] Co de Phone Number [facility] Department [place] [address] * VRE culture, surveillance Stool (06/15/2022 6:14 PM CDT) Pathologist [facility] [place] Report Final Report: Negative [facility] Stool 06/15/2022 6:14 PM CDT 06/15/2022 11:04 PM CDT Narrative [facility] - 06/18/2022 1:29 PM CDT Testing performed by [facility]biology Laboratory ([phone]). Catherine Adams MD LAB MICROBIOLOGY - GENERAL ORDERABLES Final Result Performing Organization Address [facility] Co de Phone Number [facility] Department [place] [address] * (ABNORMAL) POCT glucose (06/15/2022 3:21 PM CDT) Glucose, POC 260(H) 70 - 199 mg/dL [facility] Blood 06/15/2022 3:21 PM CDT 06/15/2022 3:21 PM CDT Catherine Adams MD LAB POCT ORDERABLES - DEVIC E Final Result Performing Organization Address [place]/[facility] [place] [address] * (ABNORMAL) Blood gas, arterial (06/15/2022 11:21 AM CDT) pH, Art 7.38 7.35 - 7.45 [facility] PCO2, Arterial 39 35 - 45 mmHg [facility] PO2, Arterial 100 83 - 108 mmHg [facility] HCO3 Art (Calculated) 23 20 - 30 mmol/L [facility] BE, art -2 mmol/L [facility] Comment: Interpretive Data No Reference Range Established Current Interpretive Data was last revised on 2017 O2 Sat Art (Measured) 98(H) 90 - 95 % [facility] Blood 06/15/2022 11:2 1 AM CDT 06/15/2022 11:32 AM CDT Marcelina Lo NP LAB BLOOD ORDERABLES Final Re sult Performing Organization Address [facility] [place] [address] * (ABNORMAL) POCT glucose (06/15/2022 11:20 AM CDT) [facility] Glucose, POC 332(H) 70 - 199 mg/dL [facility] Glucose comment 1 Glu2: RN/MD Notified [facility] Blood 06/15/2022 11:2 0 AM CDT 06/15/2022 11:20 AM CDT Catherine Adams MD LAB POCT ORDERABLES - DEVIC E Final Result [facility] One [facility] Department [place] [address] * Respiratory pathogen panel Nasopharyngeal (06/15/2022 11:05 AM CDT) [facility] Influenza A RNA Not Detected Not Detected [facility] Influenza B RNA Not Detected Not Detected [facility] RSV RNA Not Detected Not Detected [facility] COVID-19 RNA Not Detected Not Detected [facility] Coronavirus 229E RNA Not Detected Not Detected [facility] Coronavirus HKU1 RNA Not Detected Not Detected [facility] Coronavirus NL63 RNA Not Detected Not Detected [facility] Coronavirus OC43 RNA Not Detected Not Detected [facility] Adenovirus DNA Not Detected Not Detected [facility] Metapneumovirus RNA Not Detected Not Detected [facility] Rhinovirus/Enterov irus RNA Not Detected Not Detected [facility] Parainfluenza 1 RNA Not Detected Not Detected [facility] Parainfluenza 2 RNA Not Detected Not Detected [facility] Parainfluenza 3 RNA Not Detected Not Detected [facility] Parainfluenza 4 RNA Not Detected Not Detected [facility] B. pertussis DNA Not Detected Not Detected [facility] B. parapertussis DNA Not Detected Not Detected [facility] C. pneumoniae DNA Not Detected Not Detected [facility] M. pneumoniae DNA Not Detected Not Detected [facility] Nasopharyngeal 06/15/2022 11 :05 AM CDT 06/15/2022 11:19 AM CDT Narrative [facility] - 06/15/2022 1:02 PM CDT Is the Patient experiencing symptoms consistent with COVID?->Unknown Reason for testing?->Symptomatic Surveillance testing for transplant patient?->No ??Interpretive Data The Spotie FilmArray Respiratory Panel (RP2.1) assay is a [...] assay has FDA clearance for testing of COMMUNICATION SPECIALIST swabs. ??The performance of additional specimen types has been assessed by the performing laboratory. ??The performance characteristics of this assay have been determined by [facility] Molecular Infectious Disease Laboratory. Current interpretive data was last revised on 22. Catherine Adams MD LAB MICROBIOLOGY - GENERAL ORDERABLES Final Result ALESSANDRA Wise [facility] Department of Laboratories [place], [place] [id number] * US Vein Duplex Lower Extremity Bilateral Complete (06/15/2022 11:00 AM CDT) Anatomical Region Laterality Modality Vascular Bilateral Ultrasound 06/15/2022 10:2 9 AM CDT Narrative 06/15/2022 12:34 PM CDT [facility] - Department of Vascular Surgery, Vascular Laboratory [address] [place] [id number] Lower Extremity Venous Ultrasound Report Patient Name: ADELIA GARVIN C : 1970 (51y 9m) Study Date: 06/15/2022 10:29:44 AM Gender: M Tech: CD Location: [id number] Ref.Provider: CATHERINE ADAMS Quality: Adequate Order Provider: CATHERINE ADAMS Procedures: Vascular Report: Venous Duplex imaging was performed bilaterally in the lower extremities. The common femoral, femoral, popliteal, posterior tibial, peroneal veins were evaluated for patency, spontaneity and phasicity with Doppler, compression and augmentation maneuvers. Great saphenous vein proximal at the junction was evaluated with compression maneuvers. Indications: Localized edema. Findings: Performing Clinical Laboratory Manager: Faye Zheng RVT, RDMS. Bilateral: Venous [...] Procedure Note Jase Mendez MD - 06/15/2022 [facility] - Department of Vascular Surgery,Vascular Laboratory [address] [place] [address] Lower Extremity Venous Ultrasound Report Patient Name: ADELIA GARVIN CPatient ID: [id number] : 1970 (51y 9m)Study Date: 06/15/2022 10:29:44 AM Gender: MAccession #: [id number] Tech: CDLocation: [id number] Ref.Provider: Leandro ADAMSality: Adequate Order Provider: Ramez ADAMS #: [id number] Procedures: Vascular Report: Venous Duplex imaging was performed bilaterally in the lower extremities.The common femoral, femoral, popliteal, posterior tibial, peroneal veins wereevaluated for patency, spontaneity and phasicity with Doppler, compression and augmentationmaneuvers. Great saphenous vein proximal at the junction was evaluated with compressionmaneuvers. Indications: Localized edema. Findings: Performing Clinical Laboratory Manager: Faye Zheng RVT, RDMS. Bilateral: Venous [...] POC 260(H) 70 - 199 mg/dL [facility] Blood 06/15/2022 8:21 AM CDT 06/15/2022 8:21 AM CDT Result [facility] Catherine Adams MD LAB POCT ORDERABLES - DEVIC E Final Result Performing Organization Address City/[facility] Co de Phone Number [facility] Department [place] [employer] [address] * Oxyhemoglobin, central venous (06/15/2022 8:11 AM CDT) Oxyhemoglobin, CV 66.6 % [facility] Comment: Interpretive Data No reference range established. Current interpretive data was last revised 2019. Blood 06/15/2022 8:11 AM CDT 06/15/2022 8:25 AM CDT Result [facility] Catherine Adams MD LAB BLOOD ORDERABLES Final Result Performing Organization Address City/[facility]/ZIP Co de Phone Number [facility] [place] [address] * (ABNORMAL) aPTT (06/15/2022 8:11 AM CDT) aPTT 60(H) 27 - 37 sec [facility] Comment: Interpretive Data Therapeutic heparin range: 60.0 - 94.0 seconds. Based on correlation with therapeutic heparin activity range of 0.3-0.7 Units/mL. Current interpretive data was last revised on 2020. Blood 06/15/2022 8:11 AM CDT 06/15/2022 8:50 AM CDT Narrative [facility] - 06/15/2022 9:28 AM CDT Draw [...] City/State/[facility] Co de Phone Number [facility] One [facility] Department [place] [address] * (ABNORMAL) eGFR (06/15/2022 8:06 AM CDT) eGFR 27(L) 90 - 130 mL/min/1. 73 m2 [facility] Comment: Interpretive Data Reference Interval Normal [...] NP LAB BLOOD ORDERABLES Final Re sult [facility] One [facility] Department [place] [address] * (ABNORMAL) Differential, auto (06/15/2022 8:06 AM CDT) Neutrophil abs 9.0(H) 1.7 - 6.5 K/cumm [facility] Imm gran abs 1.0(H) 0.0 - 0.1 K/cumm [facility] Lymphocyte abs 1.6 0.8 - 3.3 K/cumm [facility] Monocyte abs 1.5(H) 0.2 - 0.8 K/cumm [facility] Eosinophil abs 0.2 0.0 - 0.5 K/cumm [facility] Basophil abs 0.1 0.0 - 0.1 K/cumm [facility] Neutrophil pct 67.6 % [facility] Comment: Interpretive Data Percent cell count reference ranges are not reported, since discordance with absolute values may lead to misinterpretation of CBC data. Current Interpretive Data was last revised on 2017. Imm gran pct 7.4 % [facility] Comment: Interpretive Data Percent cell count reference ranges are not reported, since discordance with absolute values may lead to misinterpretation of CBC data. Current Interpretive Data was last revised on 2017. Lymphocyte pct 11.8 % [facility] Comment: Interpretive Data Percent cell count reference ranges are not reported, since discordance with absolute values may lead to misinterpretation of CBC data. Current Interpretive Data was last revised on 2017. Monocyte pct 11.2 % [facility] Comment: Interpretive Data Percent cell [...] 06/15/2022 8:50 AM CDT us Marcelina Lo COMMUNICATION SPECIALIST LAB BLOOD ORDERABLES Final Re sult [facility] One [facility] Department [place] [address] * Blood culture Blood Arm, right (06/15/2022 [...] organism identification may be performed using the Vine Girlsigene Gram-Positive Blood Culture Assay. This assay detects microbial DNA in positive blood culture broth via hybridization of target DNA to capture oligonucleotides on a microarray. This assay has been cleared by the [place] Food and Drug Administration and its performance characteristics have been verified by the [facility]biology Laboratory. 5. ?For questions about this culture, contact the Microbiology Laboratory at [phone]. Interpretive data was last revised on 2020. Catherine Adams MD LAB MICROBIOLOGY - GENERAL ORDERABLES Final Result ALESSANDRA CARRION One [facility] Department [place] [address] * Blood culture Blood Antecubital, right (06/15/2022 [...] organism identification may be performed using the [employer] Girl[employer]ene Gram-Positive Blood Culture Assay. This assay detects microbial DNA in positive blood culture broth via hybridization of target DNA to capture oligonucleotides on a microarray. This assay has been cleared by the [place] Food and Drug Administration and its performance characteristics have been verified by the [facility]biology Laboratory. 5. ?For questions about this culture, contact the Microbiology Laboratory at [phone]. Interpretive data was last revised on 2020. Catherine Adams MD LAB MICROBIOLOGY - GENERAL ORDERABLES Final Result Performing Organization Address [facility]/ZIP Co de Phone Number [facility] Department [place] [address] * (ABNORMAL) Magnesium (06/15/2022 8:06 AM CDT) [facility] Magnesium 2.8(H) 1.4 - 2.5 mg/dL [facility] Blood 06/15/2022 8:06 AM CDT 06/15/2022 8:50 AM CDT Marcelina Lo NP LAB BLOOD ORDERABLES Final Re sult Performing Organization Address [facility] Co de Phone Number [facility] Department [place] [address] * (ABNORMAL) Comprehensive metabolic panel (06/15/2022 8:06 AM CDT) Pathologist [facility] [place] Sodium 134(L) 135 - 145 mmol/L [facility] Potassium, pl 5.0(H) 3.3 - 4.9 mmol/L [facility] Chloride 99 97 - 110 mmol/L [facility] CO2 26 22 - 32 mmol/L [facility] Anion gap 9 2 - 15 mmol/L [facility] BUN 21 8 - 25 mg/dL [facility] Creatinine 2.73(H) 0.80 - 1.30 mg/dL [facility] Glucose 273(H) 70 - 199 mg/dL [facility] Comment: Interpretive Data Fasting glucose [...] 2017. Calcium 8.8 8.5 - 10.3 mg/[facility] Bilirubin, total 0.5 0.1 - 1.2 mg/dL [facility] Protein, pl 6.2(L) 6.5 - 8.5 g/dL [facility] Albumin 2.7(L) 3.5 - 5.0 g/dL [facility] Alk phos 256(H) 40 - 130 Units/L [facility] ALT 44 7 - 55 Units/L [facility] AST 61(H) 10 - 50 Units/L [facility] Blood 06/15/2022 8:06 AM CDT 06/15/2022 8:50 AM CDT us Marcelina Lo COMMUNICATION SPECIALIST LAB BLOOD ORDERABLES Final Re sult [facility] One [facility] Department [place] [address] * (ABNORMAL) CBC with auto differential (06/15/2022 8:06 AM CDT) Pathologist [facility] [place] WBC 13.2(H) 3.8 - 9.9 K/cumm [facility] Hgb 7.7(L) 13.0 - 17.5 g/dL [facility] Hct 24.1(L) 38.9 - 50.3 % [facility] Plt 228 150 - 400 K/cumm [facility] MPV 10.6 9.1 - 12.3 fL [facility] RBC 2.45(L) 4.30 - 5.80 M/cumm [facility] MCV 98.4(H) 81.3 - 96.4 fL [facility] MCH 31.4 27.1 - 33.3 pg [facility] MCHC 32.0(L) 32.3 - 35.7 g/dL [facility] RDW CV 14.5 11.1 - 14.9 % [facility] RDW SD 49.6(H) 35.7 - 48.1 fL [facility] NRBC abs 0.11(H) 0.00 - 0.01 K/cumm [facility] Blood 06/15/2022 8:06 AM CDT 06/15/2022 8:50 AM CDT us Marcelina Lo NP LAB BLOOD ORDERABLES Final Re sult [facility] Department [place] [address] * XR Chest 1 View (06/15/2022 5:21 AM CDT) Anatomical Region Laterality Modality Body, Chest N/A Computed Radiogr aphy 06/15/2022 8:52 AM CDT Impressions 06/15/2022 9:21 AM CDT Comparison is made to 06/14/2022. Endotracheal tube terminates near the thoracic inlet, approximately 7 cm above the boni. Recommend advancement. Gastric tube terminates below left hemidiaphragm out of the [id number]. A left internal jugular central venous catheter [...] terminates below left hemidiaphragm out of the [id number]. A left internal jugular central venous catheter [...] Glucose, POC 264(H) 70 - 199 mg/dL [facility] Blood 06/15/2022 3:37 AM CDT 06/15/2022 3:37 AM CDT Result [facility] Catherine Adams MD LAB POCT ORDERABLES - DEVIC E Final Result Performing Organization Address City/[facility]/ZIP Co de Phone Number [facility] Department [place] [employer] [address] * Lactate, whole blood (06/15/2022 3:37 AM CDT) [facility] Signature Lactate, bld 0.8 0.7 - 2.0 mmol/L [facility] Blood 06/15/2022 3:37 AM CDT 06/15/2022 3:46 AM CDT Marcelina Lo NP LAB BLOOD ORDERABLES Final Re sult Performing Organization Address City/[facility]/ZIP Co de Phone Number [facility] Department [place] [address] * (ABNORMAL) Blood gas, arterial (06/15/2022 3:37 AM CDT) Pathologist [facility] [place] pH, Art 7.36 7.35 - 7.45 [facility] PCO2, Arterial 41 35 - 45 mmHg [facility] PO2, Arterial 64(L) 83 - 108 mmHg [facility] HCO3 Art (Calculated) 24 20 - 30 mmol/L [facility] BE, art -2 mmol/L [facility] Comment: Interpretive Data No Reference Range Established Current Interpretive Data was last revised on 2017 O2 Sat Art (Measured) 92 90 - 95 % [facility] Blood 06/15/2022 3:37 AM CDT 06/15/2022 3:46 AM CDT us Marcelina Lo COMMUNICATION SPECIALIST LAB BLOOD ORDERABLES Final Re sult [facility] Department [place] [address] * Pneumonia PCR Tracheal aspirate (06/15/2022 1:53 AM CDT) [facility] C. pneumoniae DNA Not Detected Not Detected [facility] Legionella pneumophila DNA Not Detected Not Detected [facility] M. pneumoniae DNA Not Detected Not Detected [facility] Adenovirus DNA Not Detected Not Detected [facility] Coronavirus (229E, OC43, HKU1, NL63) RNA Not Detected Not Detected [facility] Metapneumovirus RNA Not Detected Not Detected [facility] Rhinovirus/Enterov irus RNA Not Detected Not Detected [facility] Influenza A RNA Not Detected Not Detected [facility] Influenza B RNA Not Detected Not Detected [facility] Parainfluenza virus (1-4) RNA Not Detected Not Detected [facility] RSV RNA Not Detected Not Detected [facility] Tracheal aspirate 06/15/2022 1:53 AM CDT 06/15/2022 4:22 AM CDT Narrative [facility] - 06/15/2022 5:52 AM CDT The [...] of this assay have been determined by [facility]. Current interpretive data was last revised on 2021. Catherine Adams MD LAB MICROBIOLOGY - GENERAL ORDERABLES Final Result [facility] One [facility] Department [place] [address] * Pneumonia PCR with aerobic culture and Gram stain Tracheal aspirate (06/15/2022 1:53 AM CDT) Direct Specimen Exam Molecular Analysis: Rapid molecular analysis has NOT detected bacterial targets (for a list of targets evaluated, refer to the interpretive data for this specimen). Correlation of molecular analysis with culture results is recommended. [facility] Direct Specimen Exam Stain: Few polymorphonuclear leukocytes seen. Few squamous epithelial cells seen. Few mixed bacterial stone seen on Gram stain. [facility] Report Final Report: Insignificant growth based on current clinical standards. [facility] Tracheal aspirate 06/15/2022 1:53 AM CDT 06/15/2022 3:09 AM CDT Narrative [facility] - 06/17/2022 10:03 AM CDT When rapid molecular testing results are reported, testing completed using the [employer] Pneumonia Panel. ??This molecular assay detects: Acinetobacter [...] performance characteristics have been confirmed by the [facility]. ??The performance of the [employer] Pneumonia Panel has not been established for monitoring treatment of infection and bacterial nucleic acids may persist independent of organism viability. us Catherine Adams MD LAB MICROBIOLOGY - GENERAL ORDERABLES Final Result [facility] Department [place] [address] * (ABNORMAL) Blood gas, arterial (06/14/2022 11:53 PM CDT) pH, Art 7.36 7.35 - 7.45 [facility] PCO2, Arterial 43 35 - 45 mmHg [facility] PO2, Arterial 77(L) 83 - 108 mmHg [facility] HCO3 Art (Calculated) 25 20 - 30 mmol/L [facility] BE, art -1 mmol/L [facility] Comment: Interpretive Data No Reference Range Established Current Interpretive Data was last revised on 2017 O2 Sat Art (Measured) 94 90 - 95 % [facility] Blood 06/14/2022 11:5 3 PM CDT 06/14/2022 11:59 PM CDT us Marcelina Lo COMMUNICATION SPECIALIST LAB BLOOD ORDERABLES Final Re sult Performing Organization Address [facility]/ZIP Co de Phone Number [facility] Department [place] [address] * POCT glucose (06/14/2022 11:52 PM CDT) Pathologist [facility] [place] Glucose, POC 176 70 - 199 mg/dL [facility] Blood 06/14/2022 11:5 2 PM CDT 06/14/2022 11:52 PM CDT Catherine Adams MD LAB POCT ORDERABLES - DEVIC E Final Result Performing Organization Address [facility] Co de Phone Number [facility] Department [place] [address] * (ABNORMAL) eGFR (06/14/2022 7:41 PM CDT) eGFR 35(L) 90 - 130 mL/min/1. 73 m2 [facility] Comment: Interpretive Data Reference Interval Normal [...] Adams MD LAB BLOOD ORDERABLES Final Result [facility] One [facility] Department [place] [address] * (ABNORMAL) Differential, auto (06/14/2022 7:41 PM CDT) Neutrophil abs 9.9(H) 1.7 - 6.5 K/cumm [facility] Imm gran abs 1.5(H) 0.0 - 0.1 K/cumm [facility] Lymphocyte abs 1.7 0.8 - 3.3 K/cumm [facility] Monocyte abs 1.6(H) 0.2 - 0.8 K/cumm [facility] Eosinophil abs 0.3 0.0 - 0.5 K/cumm [facility] Basophil abs 0.0 0.0 - 0.1 K/cumm [facility] Neutrophil pct 66.0 % [facility] Comment: Interpretive Data Percent cell count reference ranges are not reported, since discordance with absolute values may lead to misinterpretation of CBC data. Current Interpretive Data was last revised on 2017. Imm gran pct 9.6 % [facility] Comment: Interpretive Data Percent cell count reference ranges are not reported, since discordance with absolute values may lead to misinterpretation of CBC data. Current Interpretive Data was last revised on 2017. Lymphocyte pct 11.2 % [facility] Comment: Interpretive Data Percent cell count reference ranges are not reported, since discordance with absolute values may lead to misinterpretation of CBC data. Current Interpretive Data was last revised on 2017. Monocyte pct 10.8 % [facility] Comment: Interpretive Data Percent cell count reference ranges are not reported, since discordance with absolute values may lead to misinterpretation of CBC data. Current Interpretive Data was last revised on 2017. Eosinophil pct 2.1 % [facility] Comment: Interpretive Data Percent cell count reference ranges are not reported, since discordance with absolute values may lead to misinterpretation of CBC data. Current Interpretive Data was last revised on 2017. Basophil pct 0.3 % [facility] Comment: Interpretive Data Percent cell count reference ranges are not reported, since discordance with absolute values may lead to misinterpretation of CBC data. Current Interpretive Data was last revised on 2017. Blood 06/14/2022 7:4 1 PM CDT 06/14/2022 8:01 PM CDT Catherine Adams MD LAB BLOOD ORDERABLES Final Result [facility] One [facility] Department [place] [address] * (ABNORMAL) Magnesium (06/14/2022 7:41 PM CDT) Magnesium 3.0(H) 1.4 - 2.5 mg/dL [facility] Blood 06/14/2022 7:41 PM CDT 06/14/2022 7:49 PM CDT us Catherine Adams MD LAB BLOOD ORDERABLES Final Result [facility] One [facility] Department [place] [address] * (ABNORMAL) Comprehensive metabolic panel (06/14/2022 7:41 PM CDT) Sodium 138 135 - 145 mmol/L [facility] Potassium, pl 4.7 3.3 - 4.9 mmol/L [facility] Chloride 102 97 - 110 mmol/L [facility] CO2 27 22 - 32 mmol/L [facility] Anion gap 9 2 - 15 mmol/[facility] BUN 17 8 - 25 mg/dL [facility] Creatinine 2.22(H) 0.80 - 1.30 mg/dL [facility] Glucose 182 70 - 199 mg/dL [facility] Comment: Interpretive Data Fasting glucose [...] Calcium 9.1 8.5 - 10.3 mg/dL [facility] Bilirubin, total 0.6 0.1 - 1.2 mg/dL [facility] Protein, pl 6.5 6.5 - 8.5 g/dL [facility] Albumin 3.1(L) 3.5 - 5.0 g/dL [facility] Alk phos 264(H) 40 - 130 Units/L [facility] ALT 45 7 - 55 Units/L [facility] AST 73(H) 10 - 50 Units/L [facility] Blood 06/14/2022 7:41 PM CDT 06/14/2022 7:49 PM CDT Catherine Adams MD LAB BLOOD ORDERABLES Final Result [facility] One [facility] Department [place] [address] * (ABNORMAL) Triglycerides (06/14/2022 7:41 PM CDT) Triglycerides 482(H) <=149 mg/dL [facility] Comment: Interpretive Data Ages < [...] PM CDT 06/14/2022 7:49 PM CDT Narrative [facility] - 06/14/2022 8:29 PM CDT While on propofol infusion. us Catherine Adams MD LAB BLOOD ORDERABLES Final Result [facility] One [facility] Department [place] [address] * Phosphorus (06/14/2022 7:41 PM CDT) Phosphorus, pl 3.1 2.3 - 4.5 mg/dL [facility] Blood 06/14/2022 7:41 PM CDT 06/14/2022 7:49 PM CDT Marcelina Lo COMMUNICATION SPECIALIST LAB BLOOD ORDERABLES Final Re sult Performing Organization Address [facility] de Phone Number [facility] [place] [address] * (ABNORMAL) Beta-hydroxybutyrate (06/14/2022 7:41 PM CDT) Pathologist [facility] [place] Beta-Hydroxybut yrate 0.7(H) 0.0 - 0.5 mmol/L [facility] Blood 06/14/2022 7:41 PM CDT 06/14/2022 7:47 PM CDT Marcelina Lo COMMUNICATION SPECIALIST LAB BLOOD ORDERABLES Edited R esult - Final Performing Organization Address [facility] de Phone Number [facility] Department [place] [address] * Lipase (06/14/2022 7:41 PM CDT) Pathologist [facility] [place] Lipase 25 10 - 99 Units/L [facility] Blood 06/14/2022 7:41 PM CDT 06/14/2022 7:49 PM CDT Marcelina Lo COMMUNICATION SPECIALIST LAB BLOOD ORDERABLES Final Re sult Performing Organization Address [facility] de Phone Number [facility] [place] [address] * (ABNORMAL) CBC with auto differential (06/14/2022 7:41 PM CDT) [facility] WBC 15.0(H) 3.8 - 9.9 K/cumm [facility] Hgb 8.3(L) 13.0 - 17.5 g/dL [facility] Hct 24.9(L) 38.9 - 50.3 % [facility] Plt 218 150 - 400 K/cumm [facility] MPV 10.4 9.1 - 12.3 fL [facility] RBC 2.62(L) 4.30 - 5.80 M/cumm [facility] MCV 95.0 81.3 - 96.4 fL [facility] MCH 31.7 27.1 - 33.3 pg [facility] MCHC 33.3 32.3 - 35.7 g/dL [facility] RDW CV 14.1 11.1 - 14.9 % [facility] RDW SD 47.3 35.7 - 48.1 fL [facility] NRBC abs 0.08(H) 0.00 - 0.01 K/cumm [facility] Blood 06/14/2022 7:41 PM CDT 06/14/2022 8:01 PM CDT us Marcelina Lo COMMUNICATION SPECIALIST LAB BLOOD ORDERABLES Final Re sult Performing Organization Address City/[facility]/ZIP Co de Phone Number [facility] Department [place] [employer] [address] * POCT glucose (06/14/2022 7:40 PM CDT) Glucose, POC 190 70 - 199 mg/dL [facility] Blood 06/14/2022 7:40 PM CDT 06/14/2022 7:40 PM CDT Catherine Adams MD LAB POCT ORDERABLES - DEVIC E Final Result [facility] Department [place] [address] * (ABNORMAL) Blood gas, arterial (06/14/2022 4:19 PM CDT) Pathologist [facility] [place] pH, Art 7.38 7.35 - 7.45 [facility] PCO2, Arterial 41 35 - 45 mmHg [facility] PO2, Arterial 76(L) 83 - 108 mmHg [facility] HCO3 Art (Calculated) 25 20 - 30 mmol/L [facility] BE, art -1 mmol/L [facility] Comment: Interpretive Data No Reference Range Established Current Interpretive Data was last revised on 2017 O2 Sat Art (Measured) 94 90 - 95 % [facility] Blood 06/14/2022 4:19 PM CDT 06/14/2022 4:38 PM CDT us Marcelina Lo COMMUNICATION SPECIALIST LAB BLOOD ORDERABLES Final Re sult Performing Organization Address [facility] Co de Phone Number [facility] [place] [address] * (ABNORMAL) POCT glucose (06/14/2022 4:16 PM CDT) Glucose, POC 229(H) 70 - 199 mg/dL [facility] Glucose comment 1 Glu2: RN/MD Notified [facility] Blood 06/14/2022 4:16 PM CDT 06/14/2022 4:16 PM CDT us Catherine Adams MD LAB POCT ORDERABLES - DEVIC E Final Result Performing Organization Address [facility] Co de Phone Number [facility] Department [place] [address] * (ABNORMAL) POCT glucose (06/14/2022 11:21 AM CDT) Glucose, POC 202(H) 70 - 199 mg/dL [facility] Blood 06/14/2022 11:2 1 AM CDT 06/14/2022 11:21 AM CDT us Catherine Adams MD LAB POCT ORDERABLES - DEVIC E Final Result Performing Organization Address City/[facility]/ZIP Co de Phone Number [facility] Department [place] [address] * XR Chest 1 View (06/14/2022 10:56 [...] Glucose, POC 172 70 - 199 mg/dL [facility] Blood 06/14/2022 8:18 AM CDT 06/14/2022 8:18 AM CDT us Catherine Adams MD LAB POCT ORDERABLES - DEVIC E Final Result Performing Organization Address [facility] Co de Phone Number [facility] Department [place] [address] * (ABNORMAL) eGFR (06/14/2022 8:16 AM CDT) eGFR 35(L) 90 - 130 mL/min/1. 73 m2 [facility] Comment: Interpretive Data Reference Interval Normal [...] BLOOD ORDERABLES Final Result Performing Organization Address City/[facility] Co de Phone Number [facility] Department [place] [address] * (ABNORMAL) Differential, auto (06/14/2022 8:16 AM [...] 2017. Imm gran pct 11.4 % [facility] Comment: Interpretive Data Percent cell count [...] BLOOD ORDERABLES Final Result Performing Organization Address [facility] de Phone Number [facility] [place] [address] * (ABNORMAL) aPTT (06/14/2022 8:16 AM CDT) aPTT 67(H) 27 - 37 sec [facility] Comment: Interpretive Data Therapeutic heparin range: 60.0 - 94.0 seconds. Based on correlation with therapeutic heparin activity range of 0.3-0.7 Units/mL. Current interpretive data was last revised on 2020. Blood 06/14/2022 8:16 AM CDT 06/14/2022 8:30 AM CDT Narrative [facility] - 06/14/2022 8:54 AM CDT Draw STAT [...] BLOOD ORDERABLES Final Result Performing Organization Address [facility] de Phone Number [facility] [place] [address] * (ABNORMAL) Blood gas, arterial (06/14/2022 8:16 AM CDT) pH, Art 7.41 7.35 - 7.45 [facility] PCO2, Arterial 38 35 - 45 mmHg [facility] PO2, Arterial 89 83 - 108 mmHg [facility] HCO3 Art (Calculated) 25 20 - 30 mmol/L [facility] BE, art 0 mmol/L [facility] Comment: Interpretive Data No Reference Range Established Current Interpretive Data was last revised on 2017 O2 Sat Art (Measured) 97(H) 90 - 95 % [facility] Blood 06/14/2022 8:16 AM CDT 06/14/2022 8:27 AM CDT Marcelina Lo COMMUNICATION SPECIALIST LAB BLOOD ORDERABLES Final Re sult Performing Organization Address [facility] Co de Phone Number [facility] [place] [address] * (ABNORMAL) Magnesium (06/14/2022 8:16 AM CDT) [facility] Magnesium 2.9(H) 1.4 - 2.5 mg/dL [facility] Blood 06/14/2022 8:16 AM CDT 06/14/2022 8:29 AM CDT Marcelina Lo COMMUNICATION SPECIALIST LAB BLOOD ORDERABLES Final Re sult Performing Organization Address [facility] de Phone Number [facility] [place] [address] * (ABNORMAL) Comprehensive metabolic panel (06/14/2022 8:16 AM CDT) Pathologist [facility] [place] Sodium 134(L) 135 - 145 mmol/L [facility] Potassium, pl 4.7 3.3 - 4.9 mmol/L [facility] Comment:Hemolyzed; Potassium value may be falsely elevated by as much as 0.3-0.5 mmol/L. Suggest redraw and reanalysis. Chloride 100 97 - 110 mmol/L [facility] CO2 25 22 - 32 mmol/L [facility] Anion gap 9 2 - 15 mmol/L [facility] BUN 16 8 - 25 mg/dL [facility] Creatinine 2.19(H) 0.80 - 1.30 mg/dL [facility] Glucose 171 70 - 199 mg/dL [facility] Comment: Interpretive Data Fasting glucose [...] 2017. Calcium 9.5 8.5 - 10.3 mg/dL [facility] Bilirubin, total 0.6 0.1 - 1.2 mg/dL [facility] Protein, pl 6.6 6.5 - 8.5 g/dL [facility] Albumin 3.1(L) 3.5 - 5.0 g/dL [facility] Alk phos 276(H) 40 - 130 Units/L [facility] ALT 48 7 - 55 Units/L [facility] AST 81(H) 10 - 50 Units/L [facility] Comment:Hemolyzed; result ma y be falsely elevated Blood 06/14/2022 8:16 AM CDT 06/14/2022 8:29 AM CDT us Marcelina Lo COMMUNICATION SPECIALIST LAB BLOOD ORDERABLES Final Re sult [facility] One [facility] Department [place] [address] * (ABNORMAL) CBC with auto differential (06/14/2022 8:16 AM CDT) WBC 15.7(H) 3.8 - 9.9 K/cumm [facility] Hgb 8.3(L) 13.0 - 17.5 g/dL [facility] Hct 25.5(L) 38.9 - 50.3 % [facility] Plt 217 150 - 400 K/cumm [facility] MPV 10.6 9.1 - 12.3 fL [facility] RBC 2.63(L) 4.30 - 5.80 M/cumm [facility] MCV 97.0(H) 81.3 - 96.4 fL [facility] MCH 31.6 27.1 - 33.3 pg [facility] MCHC 32.5 32.3 - 35.7 g/dL [facility] RDW CV 13.8 11.1 - 14.9 % [facility] RDW SD 48.2(H) 35.7 - 48.1 fL [facility] NRBC abs 0.07(H) 0.00 - 0.01 K/cumm [facility] Blood 06/14/2022 8:16 AM CDT 06/14/2022 8:29 AM CDT us Marcelina Lo NP LAB BLOOD ORDERABLES Final Re sult Performing Organization Address City/[facility]/ZIP Co de Phone Number [facility] Department [place] [address] * POCT glucose (06/14/2022 7:46 AM CDT) [facility] Glucose, POC 180 70 - 199 mg/dL [facility] Blood 06/14/2022 7:46 AM CDT 06/14/2022 7:46 AM CDT us Catherine Adams MD LAB POCT ORDERABLES - DEVIC E Final Result Performing Organization Address City/[facility]/ZIP Co de Phone Number [facility] Department [place] [address] * XR Chest 1 View (06/14/2022 4:14 [...] * POCT glucose (06/14/2022 4:01 AM CDT) [facility] Signature Glucose, POC 163 70 - 199 mg/dL [facility] Blood 06/14/2022 4:01 AM CDT 06/14/2022 4:01 AM CDT Catherine Adams MD LAB POCT ORDERABLES - DEVIC E Final Result [facility] Department [place] [address] * POCT glucose (06/13/2022 11:38 PM CDT) Glucose, POC 175 70 - 199 mg/dL [facility] Blood 06/13/2022 11:3 8 PM CDT 06/13/2022 11:38 PM CDT us Catherine Adams MD LAB POCT ORDERABLES - DEVIC E Final Result Performing Organization Address [facility] Co de Phone Number [facility] [place] [address] * (ABNORMAL) aPTT (06/13/2022 10:49 PM CDT) [facility] aPTT 72(H) 27 - 37 sec [facility] Comment: Interpretive Data Therapeutic heparin range: 60.0 - 94.0 seconds. Based on correlation with therapeutic heparin activity range of 0.3-0.7 Units/mL. Current interpretive data was last revised on 2020. Blood 06/13/2022 10:4 9 PM CDT 06/13/2022 11:55 PM CDT Narrative [facility] - 06/14/2022 12:04 AM CDT Check aPTT 6 hours after the start of Heparin infusion and 6 hours after any change in Heparin rate. (Target aPTT 61-80 seconds). Call Nephrology if outside range. us Catherine Adams MD LAB BLOOD ORDERABLES Final Result Performing Organization Address [facility] de Phone Number [facility] Department [place] [address] * (ABNORMAL) Vancomycin level trough (06/13/2022 10:49 PM CDT) Pathologist [facility] [place] Vancomycin trough 23.3(H) 10.0 - 20.0 mcg/mL [facility] Blood 06/13/2022 10:4 9 PM CDT 06/13/2022 11:10 PM CDT Catherine Adams MD LAB BLOOD ORDERABLES Final Result Performing Organization Address [facility] Co de Phone Number [facility] [place] [address] * (ABNORMAL) CBC without differential (06/13/2022 10:49 PM CDT) WBC 15.0(H) 3.8 - 9.9 K/cumm [facility] Hgb 7.7(L) 13.0 - 17.5 g/dL [facility] Hct 22.7(L) 38.9 - 50.3 % [facility] Plt 206 150 - 400 K/cumm [facility] MPV 10.6 9.1 - 12.3 fL [facility] RBC 2.41(L) 4.30 - 5.80 M/cumm [facility] MCV 94.2 81.3 - 96.4 fL [facility] MCH 32.0 27.1 - 33.3 pg [facility] MCHC 33.9 32.3 - 35.7 g/dL [facility] RDW CV 13.7 11.1 - 14.9 % [facility] RDW SD 46.4 35.7 - 48.1 fL [facility] NRBC abs 0.05(H) 0.00 - 0.01 K/cumm [facility] Blood 06/13/2022 10:4 9 PM CDT 06/13/2022 11:10 PM CDT Catherine Adams MD LAB BLOOD ORDERABLES Final Result [facility] Department [place] [address] * (ABNORMAL) POCT glucose (06/13/2022 10:48 PM CDT) Glucose, POC 200(H) 70 - 199 mg/dL [facility] Blood 06/13/2022 10:4 8 PM CDT 06/13/2022 10:48 PM CDT us Catherine Adams MD LAB POCT ORDERABLES - DEVIC E Final Result Performing Organization Address City/[facility] Co de Phone Number [facility] Department [place] [address] * POCT glucose (06/13/2022 8:28 PM CDT) Pathologist [facility] [place] Glucose, POC 182 70 - 199 mg/dL [facility] Blood 06/13/2022 8:28 PM CDT 06/13/2022 8:28 PM CDT Catherine Adams MD LAB POCT ORDERABLES - DEVIC E Final Result Performing Organization Address [facility] de Phone Number [facility] [place] [address] * (ABNORMAL) eGFR (06/13/2022 8:17 PM CDT) eGFR 35(L) 90 - 130 mL/min/1. 73 m2 [facility] Comment: Interpretive Data Reference Interval Normal [...] Adams MD LAB BLOOD ORDERABLES Final Result [facility] Department [place] [address] * (ABNORMAL) Differential, auto (06/13/2022 8:17 PM CDT) Neutrophil abs 10.6(H) 1.7 - 6.5 K/cumm [facility] Imm gran abs 2.2(H) 0.0 - 0.1 K/cumm [facility] Lymphocyte abs 2.3 0.8 - 3.3 K/cumm [facility] Monocyte abs 1.5(H) 0.2 - 0.8 K/cumm [facility] Eosinophil abs 0.3 0.0 - 0.5 K/cumm [facility] Basophil abs 0.1 0.0 - 0.1 K/cumm [facility] Neutrophil pct 62.7 % [facility] Comment: Confirmed by smear review Interpretive Data Percent cell count reference ranges are not reported, since discordance with absolute values may lead to misinterpretation of CBC data. Current Interpretive Data was last revised on 2017. Imm gran pct 13.0 % [facility] Comment: Interpretive Data Percent cell count reference ranges are not reported, since discordance with absolute values may lead to misinterpretation of CBC data. Current Interpretive Data was last revised on 2017. Lymphocyte pct 13.4 % [facility] Comment: Interpretive Data Percent cell [...] revised on 2017. Eosinophil pct 1.7 % [facility] Comment: Interpretive Data Percent cell count reference ranges are not reported, since discordance with absolute values may lead to misinterpretation of CBC data. Current Interpretive Data was last revised on 2017. Basophil pct 0.3 % [facility] Comment: Interpretive Data Percent cell count reference ranges are not reported, since discordance with absolute values may lead to misinterpretation of CBC data. Current Interpretive Data was last revised on 2017. Blood 06/13/2022 8:17 PM CDT 06/13/2022 8:34 PM CDT Catherine Adams MD LAB BLOOD ORDERABLES Final Result Performing Organization Address [facility]/ZIP Co de Phone Number [facility] Department [place] [address] * (ABNORMAL) Magnesium (06/13/2022 8:17 PM CDT) Pathologist [facility] [place] Magnesium 2.7(H) 1.4 - 2.5 mg/dL [facility] Blood 06/13/2022 8:17 PM CDT 06/13/2022 8:33 PM CDT Catherine Adams MD LAB BLOOD ORDERABLES Final Result [facility] [place] [address] * (ABNORMAL) Comprehensive metabolic panel (06/13/2022 8:17 PM CDT) Pathologist [facility] [place] Sodium 135 135 - 145 mmol/L [facility] Potassium, pl 4.9 3.3 - 4.9 mmol/L [facility] Chloride 99 97 - 110 mmol/L [facility] CO2 26 22 - 32 mmol/L [facility] Anion gap 10 2 - 15 mmol/L [facility] BUN 17 8 - 25 mg/dL [facility] Creatinine 2.21(H) 0.80 - 1.30 mg/dL [facility] Glucose 179 70 - 199 mg/dL [facility] Comment: Interpretive Data Fasting glucose [...] 2017. Calcium 8.9 8.5 - 10.3 mg/dL [facility] Bilirubin, total 0.6 0.1 - 1.2 mg/dL [facility] Protein, pl 6.2(L) 6.5 - 8.5 g/dL [facility] Albumin 3.0(L) 3.5 - 5.0 g/dL [facility] Alk phos 274(H) 40 - 130 Units/L [facility] ALT 47 7 - 55 Units/L [facility] AST 80(H) 10 - 50 Units/L [facility] Blood 06/13/2022 8:17 PM CDT 06/13/2022 8:33 PM CDT Catherine Adams MD LAB BLOOD ORDERABLES Final Result [facility] [place] [address] * Lactate, whole blood (06/13/2022 8:17 PM CDT) Lactate, bld 0.8 0.7 - 2.0 mmol/L [facility] Blood 06/13/2022 8:17 PM CDT 06/13/2022 8:26 PM CDT Marcelina Lo COMMUNICATION SPECIALIST LAB BLOOD ORDERABLES Final Re sult Performing Organization Address [facility] Co de Phone Number [facility] Department [place] [address] * (ABNORMAL) Blood gas, arterial (06/13/2022 8:17 PM CDT) pH, Art 7.42 7.35 - 7.45 [facility] PCO2, Arterial 37 35 - 45 mmHg [facility] PO2, Arterial 73(L) 83 - 108 mmHg [facility] HCO3 Art (Calculated) 24 20 - 30 mmol/L [facility] BE, art 0 mmol/L [facility] Comment: Interpretive Data No Reference Range Established Current Interpretive Data was last revised on 2017 O2 Sat Art (Measured) 94 90 - 95 % [facility] Blood 06/13/2022 8:17 PM CDT 06/13/2022 8:26 PM CDT Marcelina Lo COMMUNICATION SPECIALIST LAB BLOOD ORDERABLES Final Re sult Performing Organization Address [facility] Co de Phone Number [facility] Department [place] [address] * (ABNORMAL) Triglycerides (06/13/2022 8:17 PM CDT) Triglycerides 324(H) <=149 mg/dL [facility] Comment: Interpretive Data Ages < [...] PM CDT 06/13/2022 8:33 PM CDT Narrative [facility] - 06/13/2022 9:29 PM CDT While on propofol infusion. us Catherine Adams MD LAB BLOOD ORDERABLES Final Result Performing Organization Address [facility] Co de Phone Number [facility] Department [place] [address] * Phosphorus (06/13/2022 8:17 PM CDT) Phosphorus, pl 3.1 2.3 - 4.5 mg/dL [facility] Blood 06/13/2022 8:17 PM CDT 06/13/2022 8:33 PM CDT us Marcelina Lo NP LAB BLOOD ORDERABLES Final Re sult Performing Organization Address City/[facility] Co de Phone Number [facility] Department [place] [address] * (ABNORMAL) Beta-hydroxybutyrate (06/13/2022 8:17 PM CDT) Beta-Hydroxybut yrate 1.2(H) 0.0 - 0.5 mmol/L [facility] Blood 06/13/2022 8:17 PM CDT 06/13/2022 8:34 PM CDT Marcelina Lo COMMUNICATION SPECIALIST LAB BLOOD ORDERABLES Edited R esult - Final [facility] One [facility] [place] [address] * Lipase (06/13/2022 8:17 PM CDT) Pathologist [facility] [place] Lipase 16 10 - 99 Units/L [facility] Blood 06/13/2022 8:17 PM CDT 06/13/2022 8:33 PM CDT Marcelina Lo COMMUNICATION SPECIALIST LAB BLOOD ORDERABLES Final Re sult Performing Organization Address [facility]/ZIP Co de Phone Number [facility] [place] [address] * (ABNORMAL) CBC with auto differential (06/13/2022 8:17 PM CDT) [facility] WBC 16.9(H) 3.8 - 9.9 K/cumm [facility] Hgb 8.0(L) 13.0 - 17.5 g/dL [facility] Hct 24.2(L) 38.9 - 50.3 % [facility] Plt 202 150 - 400 K/cumm [facility] MPV 10.7 9.1 - 12.3 fL [facility] RBC 2.55(L) 4.30 - 5.80 M/cumm [facility] MCV 94.9 81.3 - 96.4 fL [facility] MCH 31.4 27.1 - 33.3 pg [facility] MCHC 33.1 32.3 - 35.7 g/dL [facility] RDW CV 13.7 11.1 - 14.9 % [facility] RDW SD 46.6 35.7 - 48.1 fL [facility] NRBC abs 0.07(H) 0.00 - 0.01 K/cumm [facility] Blood 06/13/2022 8:17 PM CDT 06/13/2022 8:34 PM CDT us Marcelina Lo COMMUNICATION SPECIALIST LAB BLOOD ORDERABLES Final Re sult [facility] Department [place] [address] * XR Chest 1 View (06/13/2022 4:45 PM CDT) Anatomical Region Laterality Modality Body, Chest N/A Computed Radiogr aphy 06/13/2022 4:58 PM CDT Impressions 06/13/2022 4:58 PM CDT Comparison is made to the prior from 06/13/2022. Endotracheal tube terminates 3 cm above the boni. Nasogastric tube terminates below the diaphragms on the [id number]. Left internal jugular approach central venous catheter [...] tube terminates below the diaphragms on the [id number]. Left internal jugular approach central venous catheter [...] PM CDT 06/13/2022 4:32 PM CDT Narrative [facility] - 06/13/2022 4:42 PM CDT Draw [...] BLOOD ORDERABLES Final Result Performing Organization Address [facility] de Phone Number [facility] [place] [address] * (ABNORMAL) Blood gas, arterial (06/13/2022 4:12 PM CDT) pH, Art 7.43 7.35 - 7.45 [facility] PCO2, Arterial 39 35 - 45 mmHg [facility] PO2, Arterial 63(L) 83 - 108 mmHg [facility] HCO3 Art (Calculated) 27 20 - 30 mmol/L [facility] BE, art 2 mmol/L [facility] Comment: Interpretive Data No Reference Range Established Current Interpretive Data was last revised on 2017 O2 Sat Art (Measured) 92 90 - 95 % [facility] Blood 06/13/2022 4:12 PM CDT 06/13/2022 4:20 PM CDT us Marcelina Lo NP LAB BLOOD ORDERABLES Final Re sult Performing Organization Address [facility] Co de Phone Number [facility] [place] [address] * Potassium, whole blood (06/13/2022 4:12 PM CDT) Potassium, bld 4.5 3.3 - 4.9 mmol/L [facility] Blood 06/13/2022 4:12 PM CDT 06/13/2022 4:20 PM CDT Marcelina Lo COMMUNICATION SPECIALIST LAB BLOOD ORDERABLES Final Re sult Performing Organization Address City/[facility] Co de Phone Number [facility] Department [place] [place] [address] * Lactate, whole blood (06/13/2022 4:12 PM CDT) Lactate, bld 0.9 0.7 - 2.0 mmol/L [facility] Blood 06/13/2022 4:12 PM CDT 06/13/2022 4:20 PM CDT Marcelina Lo COMMUNICATION SPECIALIST LAB BLOOD ORDERABLES Final Re sult Performing Organization Address [facility] Co de Phone Number [facility] [place] [address] * POCT glucose (06/13/2022 4:11 PM CDT) Glucose, POC 99 70 - 199 mg/dL [facility] Blood 06/13/2022 4:11 PM CDT 06/13/2022 4:11 PM CDT Catherine Adams MD LAB POCT ORDERABLES - DEVIC E Final Result Performing Organization Address City/[facility] Co de Phone Number [facility] [place] [address] * POCT glucose (06/13/2022 12:29 PM CDT) Glucose, POC 129 70 - 199 mg/dL [facility] Blood 06/13/2022 12:2 9 PM CDT 06/13/2022 12:29 PM CDT us Catherine Adams MD LAB POCT ORDERABLES - DEVIC E Final Result Performing Organization Address [facility] Co de Phone Number [facility] Department [place] [address] * (ABNORMAL) Blood gas, arterial (06/13/2022 12:20 PM CDT) pH, Art 7.40 7.35 - 7.45 [facility] PCO2, Arterial 42 35 - 45 mmHg [facility] PO2, Arterial 60(L) 83 - 108 mmHg [facility] HCO3 Art (Calculated) 27 20 - 30 mmol/L [facility] BE, art 2 mmol/L [facility] Comment: Interpretive Data No Reference Range Established Current Interpretive Data was last revised on 2017 O2 Sat Art (Measured) 90 90 - 95 % [facility] Blood 06/13/2022 12:2 0 PM CDT 06/13/2022 1:01 PM CDT us Marcelina Lo COMMUNICATION SPECIALIST LAB BLOOD ORDERABLES Final Re sult Performing Organization Address [facility] Co de Phone Number [facility] Department [place] [address] * XR Chest 1 View (06/13/2022 11:11 [...] Potassium, whole blood (06/13/2022 9:41 AM CDT) [facility] Potassium, bld 5.7(H) 3.3 - 4.9 mmol/L [facility] Blood 06/13/2022 9:41 AM CDT 06/13/2022 9:47 AM CDT Marcelina Lo NP LAB BLOOD ORDERABLES Final Re sult [facility] Department [place] [address] * Lactate, whole blood (06/13/2022 9:41 AM CDT) [facility] Lactate, bld 1.0 0.7 - 2.0 mmol/L [facility] Blood 06/13/2022 9:41 AM CDT 06/13/2022 9:47 AM CDT Marcelina Lo COMMUNICATION SPECIALIST LAB BLOOD ORDERABLES Final Re sult Performing Organization Address [facility] de Phone Number [facility] Department [place] [address] * (ABNORMAL) Blood gas, arterial (06/13/2022 9:41 AM CDT) [facility] pH, Art 7.40 7.35 - 7.45 [facility] PCO2, Arterial 40 35 - 45 mmHg [facility] PO2, Arterial 66(L) 83 - 108 mmHg [facility] HCO3 Art (Calculated) 26 20 - 30 mmol/L [facility] BE, art 0 mmol/L [facility] Comment: Interpretive Data No Reference Range Established Current Interpretive Data was last revised on 2017 O2 Sat Art (Measured) 93 90 - 95 % [facility] Blood 06/13/2022 9:41 AM CDT 06/13/2022 9:47 AM CDT us Marcelina Lo COMMUNICATION SPECIALIST LAB BLOOD ORDERABLES Final Re sult Performing Organization Address [facility] de Phone Number [facility] Department [place] [address] * (ABNORMAL) POCT glucose (06/13/2022 9:38 AM CDT) [facility] Glucose, POC 215(H) 70 - 199 mg/dL [facility] Blood 06/13/2022 9:38 AM CDT 06/13/2022 9:38 AM CDT Catherine Adams MD LAB POCT ORDERABLES - DEVIC E Final Result [facility] Department [place] [address] * TRANSTHORACIC ECHO (TTE) COMPLETE W DOPPLER/CF W CONTRAST W BUBBLE (06/13/2022 9:34 AM CDT) LV EF 65 % CARDIOREPORT Anatomical Region Laterality Modality Ultrasound 06/13/2022 7:10 AM CDT Narrative 06/13/2022 11:08 AM CDT Patient name: Adelia Garvin Date of test: 06/13/2022 Type of test: TTE w/Doppler Hospital #: 0 Date of : 1970 (M) Clinical Laboratory Manager: Elli Larsen RDCS Referring Physician: CATHERINE ADAMS MD Contrast Agent: 0.8 ml. Optison Admin., (2.2 ml Wasted) and NS Bubble Study Contrast Administered by: Ginna ROLAND Supervised/Interpreted by: Vincenzo Stoddard MD Diagnosis: Location: [facility] Reason for test: TTE with bubble MV [...] 2=Hypo 3=Akinetic 4=Dyskin./Aneurysm 0=Not visualized) Parasternal [place]:MAS=1 BAS=1 MIL=1 IVETH=1 Parasternal [place]:MAS=1 MIS=1 VA=1 MIL=1 MAL=1 MA=1 Apical 4 Chambers:=1 MIS=1 BIS=1 BAL=1 MAL=1 AL=1 AC=1 Apical 2 Chambers:AI=1 VA=1 BI=1 BA=1 MA=1 AA=1 AC=1 LV Global [...] MD By signing this report, the attending landscaping specialist certifies that he or she has personally supervised and interpreted the echocardiogram and has reviewed and or edited and agrees with the written comments contained within the report. Procedure Note Vincenzo Stoddard MD - 06/13/2022 Patient name: Adelia Garvin Date of test: 06/13/2022 Type of test: TTE w/Doppler [facility] #: 0 Date of : 1970 (M) Clinical Laboratory Manager: Elli Larsen RDCS Referring Physician: CATHERINE ADAMS MD Contrast Agent: 0.8 ml. Optison Admin., (2.2 ml Wasted) and NS Bubble Study Contrast Administered by: Ginna ROLAND Supervised/Interpreted by: Vincenzo Stoddard MD Diagnosis: Location: [facility] Reason for test: TTE with bubble MV [...] 2=Hypo 3=Akinetic 4=Dyskin./Aneurysm 0=Not visualized) Parasternal [place]:MAS=1 BAS=1 MIL=1 IVETH=1 Parasternal [place]:MAS=1 MIS=1 VA=1 MIL=1 MAL=1 MA=1 Apical 4 Chambers:=1 MIS=1 BIS=1 BAL=1 MAL=1 AL=1 AC=1 Apical 2 Chambers:AI=1 VA=1 BI=1 BA=1 MA=1 AA=1 AC=1 LV Global [...] MD By signing this report, the attending landscaping specialist certifies that he or she has personally supervised and interpreted the echocardiogram and has reviewed and or edited and agrees with the written comments contained within the report. us Catherine Adams MD CV ECHO PROCEDURES Final Re sult * (ABNORMAL) Manual Differential (06/13/2022 9:33 AM CDT) Differential Manual [facility] Cells Counted 115 [facility] Neutrophil abs 13.0(H) 1.7 - 6.5 K/cumm [facility] Imm gran abs 1.2(H) 0.0 - 0.1 K/cumm [facility] Lymphocyte abs 0.7(L) 0.8 - 3.3 K/cumm [facility] Monocyte abs 0.4 0.2 - 0.8 K/cumm [facility] Eosinophil abs 0.3 0.0 - 0.5 K/cumm [facility] Neutrophil pct 83.6 % [facility] Comment: Interpretive Data Percent cell count reference ranges are not reported, since discordance with absolute values may lead to misinterpretation of CBC data. Current Interpretive Data was last revised on 2017. Lymphocyte pct 4.3 % [facility] Comment: Interpretive Data Percent cell count reference ranges are not reported, since discordance with absolute values may lead to misinterpretation of CBC data. Current Interpretive Data was last revised on 2017. Monocyte pct 2.6 % [facility] Comment: Interpretive Data Percent cell count reference ranges are not reported, since discordance with absolute values may lead to misinterpretation of CBC data. Current Interpretive Data was last revised on 2017. Eosinophil pct 1.7 % [facility] Comment: Interpretive Data Percent cell count reference ranges are not reported, since discordance with absolute values may lead to misinterpretation of CBC data. Current Interpretive Data was last revised on 2017. Metamyelocyte pct 5.2 % [facility] Myelocyte pct 2.6 % [facility] Blood 06/13/2022 9:33 AM CDT 06/13/2022 10:10 AM CDT Catherine Adams MD LAB BLOOD ORDERABLES Final Result [facility] Department [place] [address] * (ABNORMAL) eGFR (06/13/2022 9:33 AM CDT) eGFR 34(L) 90 - 130 mL/min/1. 73 m2 [facility] Comment: Interpretive Data Reference Interval Normal [...] Adams MD LAB BLOOD ORDERABLES Final Result [facility] Department [place] [address] * (ABNORMAL) Magnesium (06/13/2022 9:33 AM CDT) Magnesium 2.8(H) 1.4 - 2.5 mg/dL [facility] Blood 06/13/2022 9:33 AM CDT 06/13/2022 10:06 AM CDT us Marcelina Lo NP LAB BLOOD ORDERABLES Final Re sult [facility] Department [place] [address] * (ABNORMAL) Comprehensive metabolic panel (06/13/2022 9:33 AM CDT) Pathologist [facility] [place] Sodium 135 135 - 145 mmol/L [facility] Potassium, pl 5.6(H) 3.3 - 4.9 mmol/L [facility] Chloride 98 97 - 110 mmol/L [facility] CO2 26 22 - 32 mmol/L [facility] Anion gap 11 2 - 15 mmol/L [facility] BUN 19 8 - 25 mg/dL [facility] Creatinine 2.26(H) 0.80 - 1.30 mg/dL [facility] Glucose 217(H) 70 - 199 mg/dL [facility] Comment: Interpretive Data Fasting glucose [...] Calcium 8.7 8.5 - 10.3 mg/dL [facility] Bilirubin, total 0.7 0.1 - 1.2 mg/dL [facility] Protein, pl 6.5 6.5 - 8.5 g/dL [facility] Albumin 3.2(L) 3.5 - 5.0 g/dL [facility] Alk phos 300(H) 40 - 130 Units/L [facility] ALT 55 7 - 55 Units/L [facility] AST 90(H) 10 - 50 Units/L [facility] Blood 06/13/2022 9:33 AM CDT 06/13/2022 10:06 AM CDT us Marcelina Lo COMMUNICATION SPECIALIST LAB BLOOD ORDERABLES Final Re sult Performing Organization Address [facility] Co de Phone Number [facility] Department [place] [address] * (ABNORMAL) CBC with auto differential (06/13/2022 9:33 AM CDT) Pathologist [facility] [place] WBC 15.6(H) 3.8 - 9.9 K/cumm [facility] Hgb 7.7(L) 13.0 - 17.5 g/dL [facility] Hct 23.1(L) 38.9 - 50.3 % [facility] Plt 191 150 - 400 K/cumm [facility] MPV 10.9 9.1 - 12.3 fL [facility] RBC 2.45(L) 4.30 - 5.80 M/cumm [facility] MCV 94.3 81.3 - 96.4 fL [facility] MCH 31.4 27.1 - 33.3 pg [facility] MCHC 33.3 32.3 - 35.7 g/dL [facility] RDW CV 13.6 11.1 - 14.9 % [facility] RDW SD 46.7 35.7 - 48.1 fL [facility] NRBC abs 0.05(H) 0.00 - 0.01 K/cumm [facility] Blood 06/13/2022 9:33 AM CDT 06/13/2022 10:06 AM CDT us Marcelina Lo COMMUNICATION SPECIALIST LAB BLOOD ORDERABLES Final Re sult Performing Organization Address [facility]/ZIP Co de Phone Number [facility] Department [place] [address] * (ABNORMAL) POCT glucose (06/13/2022 4:40 AM CDT) Glucose, POC 280(H) 70 - 199 mg/dL [facility] Blood 06/13/2022 4:40 AM CDT 06/13/2022 4:40 AM CDT Catherine Adams MD LAB POCT ORDERABLES - DEVIC E Final Result Performing Organization Address [facility] de Phone Number [facility] Department [place] [address] * (ABNORMAL) Blood gas, arterial (06/13/2022 2:26 AM CDT) pH, Art 7.35 7.35 - 7.45 [facility] PCO2, Arterial 42 35 - 45 mmHg [facility] PO2, Arterial 78(L) 83 - 108 mmHg [facility] HCO3 Art (Calculated) 24 20 - 30 mmol/L [facility] BE, art -3 mmol/L [facility] Comment: Interpretive Data No Reference Range Established Current Interpretive Data was last revised on 2017 O2 Sat Art (Measured) 94 90 - 95 % [facility] Blood 06/13/2022 2:26 AM CDT 06/13/2022 2:58 AM CDT us Marcelina Lo COMMUNICATION SPECIALIST LAB BLOOD ORDERABLES Final Re sult Performing Organization Address [facility] Co de Phone Number [facility] Department [place] [address] * (ABNORMAL) Blood gas, arterial (06/13/2022 1:11 AM CDT) pH, Art 7.35 7.35 - 7.45 [facility] PCO2, Arterial 44 35 - 45 mmHg [facility] PO2, Arterial 72(L) 83 - 108 mmHg [facility] HCO3 Art (Calculated) 25 20 - 30 mmol/L [facility] BE, art -1 mmol/L [facility] Comment: Interpretive Data No Reference Range Established Current Interpretive Data was last revised on 2017 O2 Sat Art (Measured) 94 90 - 95 % [facility] Blood 06/13/2022 1:11 AM CDT 06/13/2022 1:30 AM CDT us Marcelina Lo COMMUNICATION SPECIALIST LAB BLOOD ORDERABLES Final Re sult Performing Organization Address City/[facility]/ZIP Co de Phone Number [facility] Department [place] [address] * Potassium, whole blood (06/13/2022 1:11 AM CDT) Potassium, bld 4.8 3.3 - 4.9 mmol/L [facility] Blood 06/13/2022 1:11 AM CDT 06/13/2022 1:30 AM CDT us Catherine Adams MD LAB BLOOD ORDERABLES Final Result Performing Organization Address City/[facility] Co de Phone Number [facility] [place] [place] [address] * POCT glucose (06/12/2022 11:26 PM CDT) Glucose, POC 123 70 - 199 mg/dL [facility] Blood 06/12/2022 11:2 6 PM CDT 06/12/2022 11:26 PM CDT Catherine Adams MD LAB POCT ORDERABLES - DEVIC E Final Result Performing Organization Address City/[facility]/ZIP Co de Phone Number [facility] [place] [address] * Lactate, whole blood (06/12/2022 8:55 PM CDT) Lactate, bld 1.2 0.7 - 2.0 mmol/L [facility] Blood 06/12/2022 8:55 PM CDT 06/12/2022 9:59 PM CDT us Jeffrey Green MD LAB BLOOD ORDERABLES Final Result Performing Organization Address [facility] de Phone Number [facility] Department [place] [address] * (ABNORMAL) eGFR (06/12/2022 8:47 PM CDT) eGFR 35(L) 90 - 130 mL/min/1. 73 m2 [facility] Comment: Interpretive Data Reference Interval Normal [...] BLOOD ORDERABLES Final Result [facility] Department [place] [address] * (ABNORMAL) Differential, auto (06/12/2022 8:47 PM [...] K/cumm [facility] Neutrophil pct 65.3 % [facility] Comment: Confirmed by smear review Interpretive Data Percent cell count reference ranges are not reported, since discordance with absolute values may lead to misinterpretation of CBC data. Current Interpretive Data was last revised on 2017. Imm gran pct 13.1 % [facility] Comment: Interpretive Data Percent cell count reference ranges are not reported, since discordance with absolute values may lead to misinterpretation of CBC data. Current Interpretive Data was last revised on 2017. Lymphocyte pct 12.0 % [facility] Comment: Interpretive Data Percent cell count reference ranges are not reported, since discordance with absolute values may lead to misinterpretation of CBC data. Current Interpretive Data was last revised on 2017. Monocyte pct 7.0 % [facility] Comment: Interpretive Data Percent cell count reference ranges are not reported, since discordance with absolute values may lead to misinterpretation of CBC data. Current Interpretive Data was last revised on 2017. Eosinophil pct 2.3 % [facility] Comment: Interpretive Data Percent cell count reference ranges are not reported, since discordance with absolute values may lead to misinterpretation of CBC data. Current Interpretive Data was last revised on 2017. Basophil pct 0.3 % [facility] Comment: Interpretive Data Percent cell count reference ranges are not reported, since discordance with absolute values may lead to misinterpretation of CBC data. Current Interpretive Data was last revised on 2017. Blood 06/12/2022 8:47 PM CDT 06/12/2022 10:10 PM CDT Catherine Adams MD LAB BLOOD ORDERABLES Final Result Performing Organization Address City/[facility]/ZIP Co de Phone Number [facility] [place] [address] * (ABNORMAL) Magnesium (06/12/2022 8:47 PM CDT) Pathologist [facility] [place] Magnesium 2.7(H) 1.4 - 2.5 mg/dL [facility] Blood 06/12/2022 8:47 PM CDT 06/12/2022 10:04 PM CDT Catherine Adams MD LAB BLOOD ORDERABLES Final Result Performing Organization Address [facility] de Phone Number [facility] [place] [address] * (ABNORMAL) Comprehensive metabolic panel (06/12/2022 8:47 PM CDT) Pathologist [facility] [place] Sodium 134(L) 135 - 145 mmol/L [facility] Potassium, pl 5.1(H) 3.3 - 4.9 mmol/L [facility] Comment:Hemolyzed; Potassium value may be falsely elevated by as much as 0.6-1.0 mmol/L. Suggest redraw and reanalysis. Chloride 101 97 - 110 mmol/L [facility] CO2 24 22 - 32 mmol/L [facility] Anion gap 9 2 - 15 mmol/L [facility] BUN 19 8 - 25 mg/dL [facility] Creatinine 2.22(H) 0.80 - 1.30 mg/dL [facility] Glucose 101 70 - 199 mg/dL [facility] Comment: Interpretive Data Fasting glucose [...] 2017. Calcium 8.7 8.5 - 10.3 mg/dL [facility] Bilirubin, total 0.8 0.1 - 1.2 mg/dL [facility] Protein, pl 6.5 6.5 - 8.5 g/dL [facility] Albumin 2.7(L) 3.5 - 5.0 g/dL [facility] Alk phos 300(H) 40 - 130 Units/L [facility] ALT 57(H) 7 - 55 Units/L [facility] AST 110(H) 10 - 50 Units/L [facility] Comment:Hemolyzed; result ma y be falsely elevated Blood 06/12/2022 8:47 PM CDT 06/12/2022 10:04 PM CDT Catherine Adams MD LAB BLOOD ORDERABLES Final Result [facility] Department [place] [address] * (ABNORMAL) Blood gas, arterial (06/12/2022 8:47 PM CDT) pH, Art 7.36 7.35 - 7.45 [facility] PCO2, Arterial 47(H) 35 - 45 mmHg [facility] PO2, Arterial 84 83 - 108 mmHg [facility] HCO3 Art (Calculated) 27 20 - 30 mmol/L [facility] BE, art 1 mmol/L [facility] Comment: Interpretive Data No Reference Range Established Current Interpretive Data was last revised on 2017 O2 Sat Art (Measured) 96(H) 90 - 95 % [facility] Blood 06/12/2022 8:47 PM CDT 06/12/2022 9:59 PM CDT us Marcelina Lo NP LAB BLOOD ORDERABLES Final Re sult Performing Organization Address [facility] [place] [address] * (ABNORMAL) aPTT (06/12/2022 8:47 PM CDT) aPTT 78(H) 27 - 37 sec [facility] Comment: Interpretive Data Therapeutic heparin range: 60.0 - 94.0 seconds. Based on correlation with therapeutic heparin activity range of 0.3-0.7 Units/mL. Current interpretive data was last revised on 2020. Blood 06/12/2022 8:47 PM CDT 06/12/2022 10:12 PM CDT Narrative [facility] - 06/12/2022 10:40 PM CDT Check aPTT 6 hours after the start of Heparin infusion and 6 hours after any change in Heparin rate. (Target aPTT 61-80 seconds). Call Nephrology if outside range. Catherine Adams MD LAB BLOOD ORDERABLES Final Result Performing Organization Address [facility] [place] [address] * (ABNORMAL) Triglycerides (06/12/2022 8:47 PM CDT) Triglycerides 248(H) <=149 mg/dL [facility] Comment: Interpretive Data Ages < [...] PM CDT 06/12/2022 10:04 PM CDT Narrative [facility] - 06/12/2022 10:44 PM CDT While on propofol infusion. us Catherine Adams MD LAB BLOOD ORDERABLES Final Result Performing Organization Address [facility]/ZIP Co de Phone Number [facility] Department [place] [address] * Phosphorus (06/12/2022 8:47 PM CDT) Phosphorus, pl 3.5 2.3 - 4.5 mg/dL [facility] Blood 06/12/2022 8:47 PM CDT 06/12/2022 10:04 PM CDT us Marcelina Lo NP LAB BLOOD ORDERABLES Final Re sult Performing Organization Address [facility] Co de Phone Number [facility] Department [place] [address] * Beta-hydroxybutyrate (06/12/2022 8:47 PM CDT) Beta-Hydroxybut yrate 0.2 0.0 - 0.5 mmol/L [facility] Blood 06/12/2022 8:47 PM CDT 06/12/2022 10:00 PM CDT Marcelina Lo COMMUNICATION SPECIALIST LAB BLOOD ORDERABLES Edited R esult - Final [facility] Department [place] [address] * Lipase (06/12/2022 8:47 PM CDT) [facility] Lipase 16 10 - 99 Units/L [facility] Blood 06/12/2022 8:47 PM CDT 06/12/2022 10:04 PM CDT Marcelina Lo COMMUNICATION SPECIALIST LAB BLOOD ORDERABLES Final Re sult Performing Organization Address [facility] Co de Phone Number [facility] [place] [address] * (ABNORMAL) CBC with auto differential (06/12/2022 8:47 PM CDT) [facility] WBC 14.6(H) 3.8 - 9.9 K/cumm [facility] Hgb 8.1(L) 13.0 - 17.5 g/dL [facility] Hct 24.7(L) 38.9 - 50.3 % [facility] Plt 207 150 - 400 K/cumm [facility] MPV 11.0 9.1 - 12.3 fL [facility] RBC 2.61(L) 4.30 - 5.80 M/cumm [facility] MCV 94.6 81.3 - 96.4 fL [facility] MCH 31.0 27.1 - 33.3 pg [facility] MCHC 32.8 32.3 - 35.7 g/dL [facility] RDW CV 13.4 11.1 - 14.9 % [facility] RDW SD 45.9 35.7 - 48.1 fL [facility] NRBC abs 0.03(H) 0.00 - 0.01 K/cumm [facility] Blood 06/12/2022 8:47 PM CDT 06/12/2022 10:10 PM CDT us Marcelina Lo COMMUNICATION SPECIALIST LAB BLOOD ORDERABLES Final Re sult Performing Organization Address [facility] Co de Phone Number [facility] [place] [address] * POCT glucose (06/12/2022 8:44 PM CDT) Glucose, POC 99 70 - 199 mg/dL [facility] Blood 06/12/2022 8:44 PM CDT 06/12/2022 8:44 PM CDT Catherine Adams MD LAB POCT ORDERABLES - DEVIC E Final Result Performing Organization Address [facility] de Phone Number [facility] [place] [address] * POCT glucose (06/12/2022 4:01 PM CDT) Glucose, POC 110 70 - 199 mg/dL [facility] Blood 06/12/2022 4:01 PM CDT 06/12/2022 4:01 PM CDT Catherine Adams MD LAB POCT ORDERABLES - DEVIC E Final Result Performing Organization Address [facility] de Phone Number [facility] [place] [address] * (ABNORMAL) aPTT (06/12/2022 4:01 PM CDT) aPTT 75(H) 27 - 37 sec [facility] Comment: Interpretive Data Therapeutic heparin range: 60.0 - 94.0 seconds. Based on correlation with therapeutic heparin activity range of 0.3-0.7 Units/mL. Current interpretive data was last revised on 2020. Blood 06/12/2022 4:01 PM CDT 06/12/2022 4:27 PM CDT Narrative [facility] - 06/12/2022 4:48 PM CDT Check aPTT 6 hours after the start of Heparin infusion and 6 hours after any change in Heparin rate. (Target aPTT 61-80 seconds). Call Nephrology if outside range. Catherine Adams MD LAB BLOOD ORDERABLES Final Result Performing Organization Address [facility] de Phone Number [facility] Department [place] [address] * Blood gas, arterial (06/12/2022 4:01 PM CDT) Pathologist [facility] [place] pH, Art 7.42 7.35 - 7.45 [facility] PCO2, Arterial 41 35 - 45 mmHg [facility] PO2, Arterial 94 83 - 108 mmHg [facility] HCO3 Art (Calculated) 27 20 - 30 mmol/L [facility] BE, art 2 mmol/L [facility] Comment: Interpretive Data No Reference Range Established Current Interpretive Data was last revised on 2017 Blood 06/12/2022 4:01 PM CDT 06/12/2022 4:16 PM CDT Marcelina Lo NP LAB BLOOD ORDERABLES Final Re sult Performing Organization Address [facility] de Phone Number [facility] Department [place] [address] * Aerobic culture and gram stain Tracheal aspirate Tracheal (06/12/2022 2:31 PM CDT) Pathologist [facility] [place] Direct Specimen Exam Stain: Rare polymorphonuclear leukocytes seen. Few squamous epithelial cells seen. Rare mixed bacterial stone seen on Gram stain. [facility] Report Final Report: Insignificant growth based on current clinical standards. [facility] Tracheal aspirate (Tracheal) 06/12/2022 2:31 PM CDT 06/12/2022 3:47 PM CDT Narrative [facility] - 06/14/2022 11:49 AM CDT Testing performed by [facility] ([phone]) Specimens submitted from normally sterile body sites [...] LAB MICROBIOLOGY - GENERAL ORDERABLES Final Result [facility] Department [place] [address] * XR Chest 1 View (06/12/2022 1:10 [...] (Measured) 97(H) 90 - 95 % [facility] Blood 06/12/2022 12:5 6 PM CDT 06/12/2022 1:02 PM CDT us Marcelina Lo COMMUNICATION SPECIALIST LAB BLOOD ORDERABLES Final Re sult [facility] [place] [address] * (ABNORMAL) Blood gas, arterial (06/12/2022 11:37 AM CDT) pH, Art 7.41 7.35 - 7.45 [facility] PCO2, Arterial 40 35 - 45 mmHg [facility] PO2, Arterial 82(L) 83 - 108 mmHg [facility] HCO3 Art (Calculated) 26 20 - 30 mmol/L [facility] BE, art 0 mmol/L [facility] Comment: Interpretive Data No Reference Range Established Current Interpretive Data was last revised on 2017 O2 Sat Art (Measured) 96(H) 90 - 95 % [facility] Blood 06/12/2022 11:3 7 AM CDT 06/12/2022 11:43 AM CDT Marcelina Lo COMMUNICATION SPECIALIST LAB BLOOD ORDERABLES Final Re sult Performing Organization Address [facility] Co de Phone Number [facility] Department [place] [address] * POCT glucose (06/12/2022 11:36 AM CDT) Glucose, POC 161 70 - 199 mg/dL [facility] Blood 06/12/2022 11:3 6 AM CDT 06/12/2022 11:36 AM CDT Catherine Adams MD LAB POCT ORDERABLES - DEVIC E Final Result Performing Organization Address [facility] de Phone Number [facility] Department [place] [address] * (ABNORMAL) Blood gas, arterial (06/12/2022 9:53 AM CDT) pH, Art 7.42 7.35 - 7.45 [facility] PCO2, Arterial 36 35 - 45 mmHg [facility] PO2, Arterial 106 83 - 108 mmHg [facility] HCO3 Art (Calculated) 25 20 - 30 mmol/L [facility] BE, art 0 mmol/L [facility] Comment: Interpretive Data No Reference Range Established Current Interpretive Data was last revised on 2017 O2 Sat Art (Measured) 98(H) 90 - 95 % [facility] Blood 06/12/2022 9:53 AM CDT 06/12/2022 10:02 AM CDT Marcelina Lo NP LAB BLOOD ORDERABLES Final Re sult [facility] One [facility] Department [place] [address] * (ABNORMAL) Manual Differential (06/12/2022 8:02 AM CDT) Differential Manual [facility] Cells Counted 116 [facility] Neutrophil abs 9.1(H) 1.7 - 6.5 K/cumm [facility] Imm gran abs 0.8(H) 0.0 - 0.1 K/cumm [facility] Lymphocyte abs 1.9 0.8 - 3.3 K/cumm [facility] Monocyte abs 0.3 0.2 - 0.8 K/cumm [facility] Eosinophil abs 0.4 0.0 - 0.5 K/cumm [facility] Neutrophil pct 72.5 % [facility] Comment: Interpretive Data Percent cell count reference ranges are not reported, since discordance with absolute values may lead to misinterpretation of CBC data. Current Interpretive Data was last revised on 2017. Lymphocyte pct 15.5 % [facility] Comment: Interpretive Data Percent cell count reference ranges are not reported, since discordance with absolute values may lead to misinterpretation of CBC data. Current Interpretive Data was last revised on 2017. Monocyte pct 2.6 % [facility] Comment: Interpretive Data Percent cell count reference ranges are not reported, since discordance with absolute values may lead to misinterpretation of CBC data. Current Interpretive Data was last revised on 2017. Eosinophil pct 3.4 % [facility] Comment: Interpretive Data Percent cell count reference ranges are not reported, since discordance with absolute values may lead to misinterpretation of CBC data. Current Interpretive Data was last revised on 2017. Metamyelocyte pct 2.6 % [facility] Myelocyte pct 3.4 % [facility] Blood 06/12/2022 8:02 AM CDT 06/12/2022 8:32 AM CDT Catherine Adams MD LAB BLOOD ORDERABLES Final Result Performing Organization Address City/[facility]/ZIP Co de Phone Number ALESSANDRA CARRION [facility] Department [place] [address] * (ABNORMAL) eGFR (06/12/2022 8:02 AM CDT) eGFR 31(L) 90 - 130 mL/min/1. 73 m2 [facility] Comment: Interpretive Data Reference Interval Normal [...] BLOOD ORDERABLES Final Result Performing Organization Address City/[facility]/ZIP Co de Phone Number ALESSANDRA CARRION [facility] Department [place] [address] * (ABNORMAL) aPTT (06/12/2022 8:02 AM CDT) aPTT 70(H) 27 - 37 sec [facility] Comment: Interpretive Data Therapeutic heparin range: 60.0 - 94.0 seconds. Based on correlation with therapeutic heparin activity range of 0.3-0.7 Units/mL. Current interpretive data was last revised on 2020. Blood 06/12/2022 8:02 AM CDT 06/12/2022 8:15 AM CDT Narrative [facility] - 06/12/2022 8:43 AM CDT Check aPTT 6 hours after the start of Heparin infusion and 6 hours after any change in Heparin rate. (Target aPTT 61-80 seconds). Call Nephrology if outside range. us Catherine Adams MD LAB BLOOD ORDERABLES Final Result Performing Organization Address [facility] Co de Phone Number [facility] [place] [employer] [address] * (ABNORMAL) Blood gas, arterial (06/12/2022 8:02 AM CDT) pH, Art 7.47(H) 7.35 - 7.45 [facility] PCO2, Arterial 34(L) 35 - 45 mmHg [facility] PO2, Arterial 71(L) 83 - 108 mmHg [facility] HCO3 Art (Calculated) 25 20 - 30 mmol/L [facility] BE, art 1 mmol/L [facility] Comment: Interpretive Data No Reference Range Established Current Interpretive Data was last revised on 2017 O2 Sat Art (Measured) 95 90 - 95 % [facility] Blood 06/12/2022 8:02 AM CDT 06/12/2022 8:13 AM CDT us Marcelina Lo NP LAB BLOOD ORDERABLES Final Re sult Performing Organization Address [facility] Co de Phone Number [facility] [place] [address] * Magnesium (06/12/2022 8:02 AM CDT) Magnesium 2.5 1.4 - 2.5 mg/dL [facility] Blood 06/12/2022 8:02 AM CDT 06/12/2022 8:28 AM CDT us Marcelina Lo COMMUNICATION SPECIALIST LAB BLOOD ORDERABLES Final Re sult [facility] Department [place] [address] * (ABNORMAL) Comprehensive metabolic panel (06/12/2022 8:02 AM CDT) Pathologist [facility] [place] Sodium 135 135 - 145 mmol/L [facility] Potassium, pl 4.4 3.3 - 4.9 mmol/L [facility] Chloride 101 97 - 110 mmol/L [facility] CO2 26 22 - 32 mmol/L [facility] Anion gap 8 2 - 15 mmol/L [facility] BUN 23 8 - 25 mg/dL [facility] Creatinine 2.45(H) 0.80 - 1.30 mg/dL [facility] Glucose 157 70 - 199 mg/dL [facility] Comment: Interpretive Data Fasting glucose [...] 2017. Calcium 8.4(L) 8.5 - 10.3 mg/dL [facility] Bilirubin, total 0.7 0.1 - 1.2 mg/dL [facility] Protein, pl 5.8(L) 6.5 - 8.5 g/dL [facility] Albumin 2.6(L) 3.5 - 5.0 g/dL [facility] Alk phos 248(H) 40 - 130 Units/L [facility] ALT 49 7 - 55 Units/L [facility] AST 95(H) 10 - 50 Units/L [facility] Blood 06/12/2022 8:02 AM CDT 06/12/2022 8:28 AM CDT Marcelina Lo COMMUNICATION SPECIALIST LAB BLOOD ORDERABLES Final Re sult Performing Organization Address [facility] Co de Phone Number [facility] Department [place] [address] * (ABNORMAL) CBC with auto differential (06/12/2022 8:02 AM CDT) WBC 12.5(H) 3.8 - 9.9 K/cumm [facility] Hgb 7.5(L) 13.0 - 17.5 g/dL [facility] Hct 22.3(L) 38.9 - 50.3 % [facility] Plt 174 150 - 400 K/cumm [facility] MPV 11.0 9.1 - 12.3 fL [facility] RBC 2.36(L) 4.30 - 5.80 M/cumm [facility] MCV 94.5 81.3 - 96.4 fL [facility] MCH 31.8 27.1 - 33.3 pg [facility] MCHC 33.6 32.3 - 35.7 g/dL [facility] RDW CV 13.5 11.1 - 14.9 % [facility] RDW SD 45.5 35.7 - 48.1 fL [facility] NRBC abs 0.02(H) 0.00 - 0.01 K/cumm [facility] Blood 06/12/2022 8:02 AM CDT 06/12/2022 8:27 AM CDT Marcelina Lo COMMUNICATION SPECIALIST LAB BLOOD ORDERABLES Final Re sult Performing Organization Address City/[facility]/ZIP Co de Phone Number [facility] Department [place] [address] * POCT glucose (06/12/2022 8:01 AM CDT) Glucose, POC 143 70 - 199 mg/dL [facility] Blood 06/12/2022 8:01 AM CDT 06/12/2022 8:01 AM CDT Catherine Adams MD LAB POCT ORDERABLES - DEVIC E Final Result Performing Organization Address City/[facility] [place] [address] * (ABNORMAL) Blood gas, arterial (06/12/2022 6:21 AM CDT) pH, Art 7.41 7.35 - 7.45 [facility] PCO2, Arterial 40 35 - 45 mmHg [facility] PO2, Arterial 86 83 - 108 mmHg [facility] HCO3 Art (Calculated) 26 20 - 30 mmol/L [facility] BE, art 1 mmol/L [facility] Comment: Interpretive Data No Reference Range Established Current Interpretive Data was last revised on 2017 O2 Sat Art (Measured) 96(H) 90 - 95 % [facility] Blood 06/12/2022 6:21 AM CDT 06/12/2022 6:29 AM CDT Catherine Adams MD LAB BLOOD ORDERABLES Final Result [facility] Department [place] [address] * POCT glucose (06/12/2022 4:57 AM CDT) Glucose, POC 163 70 - 199 mg/dL [facility] Blood 06/12/2022 4:57 AM CDT 06/12/2022 4:57 AM CDT Catherine Adams MD LAB POCT ORDERABLES - DEVIC E Final Result Performing Organization Address [facility] Co de Phone Number [facility] [place] [address] * (ABNORMAL) aPTT (06/12/2022 1:52 AM CDT) aPTT 52(H) 27 - 37 sec [facility] Comment: Interpretive Data Therapeutic heparin range: 60.0 - 94.0 seconds. Based on correlation with therapeutic heparin activity range of 0.3-0.7 Units/mL. Current interpretive data was last revised on 2020. Blood 06/12/2022 1:52 AM CDT 06/12/2022 2:15 AM CDT Narrative [facility] - 06/12/2022 2:39 AM CDT Check aPTT 6 hours after the start of Heparin infusion and 6 hours after any change in Heparin rate. (Target aPTT 61-80 seconds). Call Nephrology if outside range. Catherine Adams MD LAB BLOOD ORDERABLES Final Result Performing Organization Address [place]/[facility] [place] [address] * (ABNORMAL) POCT glucose (06/11/2022 11:32 PM CDT) Glucose, POC 206(H) 70 - 199 mg/dL [facility] Blood 06/11/2022 11:3 2 PM CDT 06/11/2022 11:32 PM CDT Catherine Adams MD LAB POCT ORDERABLES - DEVIC E Final Result Performing Organization Address City/[facility] Co de Phone Number [facility] [place] [address] * (ABNORMAL) Manual Differential (06/11/2022 11:25 PM CDT) Differential Manual [facility] Cells Counted 119 [facility] Neutrophil abs 10.8(H) 1.7 - 6.5 K/cumm [facility] Imm gran abs 0.6(H) 0.0 - 0.1 K/cumm [facility] Lymphocyte abs 1.4 0.8 - 3.3 K/cumm [facility] Monocyte abs 0.6 0.2 - 0.8 K/cumm [facility] Eosinophil abs 0.2 0.0 - 0.5 K/cumm [facility] Neutrophil pct 79.9 % [facility] Comment: Interpretive Data Percent cell count reference ranges are not reported, since discordance with absolute values may lead to misinterpretation of CBC data. Current Interpretive Data was last revised on 2017. Lymphocyte pct 10.1 % [facility] Comment: Interpretive Data Percent cell count reference ranges are not reported, since discordance with absolute values may lead to misinterpretation of CBC data. Current Interpretive Data was last revised on 2017. Monocyte pct 4.2 % [facility] Comment: Interpretive Data Percent cell count reference ranges are not reported, since discordance with absolute values may lead to misinterpretation of CBC data. Current Interpretive Data was last revised on 2017. Eosinophil pct 1.7 % [facility] Comment: Interpretive Data Percent cell count reference ranges are not reported, since discordance with absolute values may lead to misinterpretation of CBC data. Current Interpretive Data was last revised on 2017. Metamyelocyte pct 0.8 % [facility] Myelocyte pct 2.5 % [facility] Promyelocyte pct 0.8 % [facility] Blood 06/11/2022 11:2 5 PM CDT 06/11/2022 11:39 PM CDT us Jeffrey Green MD LAB BLOOD ORDERABLES Final Result [facility] Department [place] [address] * (ABNORMAL) CBC with auto differential (06/11/2022 11:25 PM CDT) Pathologist [facility] [place] WBC 13.5(H) 3.8 - 9.9 K/cumm [facility] Hgb 7.9(L) 13.0 - 17.5 g/dL [facility] Hct 23.7(L) 38.9 - 50.3 % [facility] Plt 188 150 - 400 K/cumm [facility] MPV 10.7 9.1 - 12.3 fL [facility] RBC 2.55(L) 4.30 - 5.80 M/cumm [facility] MCV 92.9 81.3 - 96.4 fL [facility] MCH 31.0 27.1 - 33.3 pg [facility] MCHC 33.3 32.3 - 35.7 g/dL [facility] RDW CV 13.3 11.1 - 14.9 % [facility] RDW SD 45.1 35.7 - 48.1 fL [facility] NRBC abs 0.02(H) 0.00 - 0.01 K/cumm [facility] Blood 06/11/2022 11:2 5 PM CDT 06/11/2022 11:35 PM CDT us Jeffrey Green MD LAB BLOOD ORDERABLES Final Result [facility] Department [place] [address] * (ABNORMAL) Blood gas, arterial (06/11/2022 11:25 PM CDT) Pathologist [facility] [place] pH, Art 7.37 7.35 - 7.45 [facility] PCO2, Arterial 41 35 - 45 mmHg [facility] PO2, Arterial 91 83 - 108 mmHg [facility] HCO3 Art (Calculated) 24 20 - 30 mmol/L [facility] BE, art -1 mmol/L [facility] Comment: Interpretive Data No Reference Range Established Current Interpretive Data was last revised on 2017 O2 Sat Art (Measured) 97(H) 90 - 95 % [facility] Blood 06/11/2022 11:2 5 PM CDT 06/11/2022 11:31 PM CDT Marcelina Lo COMMUNICATION SPECIALIST LAB BLOOD ORDERABLES Final Re sult Performing Organization Address [facility] Co de Phone Number [facility] [place] [address] * (ABNORMAL) Blood gas, arterial (06/11/2022 8:17 PM CDT) pH, Art 7.38 7.35 - 7.45 [facility] PCO[facility], Arterial 39 35 - 45 mmHg [facility] PO2, Arterial 111(H) 83 - 108 mmHg [facility] HCO3 Art (Calculated) 23 20 - 30 mmol/L [facility] BE, art -2 mmol/L [facility] Comment: Interpretive Data No Reference Range Established Current Interpretive Data was last revised on 2017 O2 Sat Art (Measured) 98(H) 90 - 95 % [facility] Blood 06/11/2022 8:17 PM CDT 06/11/2022 8:23 PM CDT Marcelina Lo COMMUNICATION SPECIALIST LAB BLOOD ORDERABLES Final Re sult Performing Organization Address [facility] de Phone Number [facility] Department [place] [address] * Lactate, whole blood (06/11/2022 8:17 PM CDT) Lactate, bld 0.8 0.7 - 2.0 mmol/L [facility] Blood 06/11/2022 8:17 PM CDT 06/11/2022 8:23 PM CDT Marcelina Lo COMMUNICATION SPECIALIST LAB BLOOD ORDERABLES Final Re sult Performing Organization Address [facility] Co de Phone Number [facility] Department [place] [address] * (ABNORMAL) eGFR (06/11/2022 8:12 PM CDT) Pathologist [facility] [place] eGFR 24(L) 90 - 130 mL/min/1. 73 m2 [facility] Comment: Interpretive Data Reference Interval [...] Adams MD LAB BLOOD ORDERABLES Final Result [facility] Department [place] [address] * Magnesium (06/11/2022 8:12 PM CDT) [facility] Magnesium 2.5 1.4 - 2.5 mg/dL [facility] Blood 06/11/2022 8:12 PM CDT 06/11/2022 8:23 PM CDT Catherine Adams MD LAB BLOOD ORDERABLES Final Result [facility] Department [place] [address] * (ABNORMAL) Comprehensive metabolic panel (06/11/2022 8:12 PM CDT) Pathologist [facility] [place] Sodium 135 135 - 145 mmol/L [facility] Potassium, pl 4.7 3.3 - 4.9 mmol/L [facility] Chloride 101 97 - 110 mmol/L [facility] CO2 23 22 - 32 mmol/L [facility] Anion gap 11 2 - 15 mmol/L [facility] BUN 28(H) 8 - 25 mg/dL [facility] Creatinine 3.01(H) 0.80 - 1.30 mg/dL [facility] Glucose 185 70 - 199 mg/dL [facility] Comment: Interpretive Data Fasting glucose [...] 2017. Calcium 8.1(L) 8.5 - 10.3 mg/dL [facility] Bilirubin, total 0.9 0.1 - 1.2 mg/dL [facility] Protein, pl 5.5(L) 6.5 - 8.5 g/dL [facility] Albumin 2.3(L) 3.5 - 5.0 g/dL [facility] Alk phos 211(H) 40 - 130 Units/L [facility] ALT 45 7 - 55 Units/L [facility] AST 95(H) 10 - 50 Units/L [facility] Blood 06/11/2022 8:12 PM CDT 06/11/2022 8:23 PM CDT Catherine Adams MD LAB BLOOD ORDERABLES Final Result Performing Organization Address [facility] de Phone Number [facility] Department [place] [address] * (ABNORMAL) Triglycerides (06/11/2022 8:12 PM CDT) Triglycerides 345(H) <=149 mg/dL [facility] Comment: Interpretive Data Ages < or [...] BLOOD ORDERABLES Final Result Performing Organization Address [facility]/ZIP Co de Phone Number [facility] [place] [address] * Phosphorus (06/11/2022 8:12 PM CDT) Phosphorus, pl 4.4 2.3 - 4.5 mg/dL [facility] Blood 06/11/2022 8:12 PM CDT 06/11/2022 8:23 PM CDT Marcelina Lo COMMUNICATION SPECIALIST LAB BLOOD ORDERABLES Final Re sult Performing Organization Address [facility] [place] [address] * Beta-hydroxybutyrate (06/11/2022 8:12 PM CDT) [facility] Beta-Hydroxybut yrate 0.3 0.0 - 0.5 mmol/L [facility] Blood 06/11/2022 8:12 PM CDT 06/11/2022 8:23 PM CDT Marcelina Lo COMMUNICATION SPECIALIST LAB BLOOD ORDERABLES Edited R esult - Final Performing Organization Address [facility] Co de Phone Number [facility] [place] [place] [address] * Lipase (06/11/2022 8:12 PM CDT) [facility] Lipase 15 10 - 99 Units/L [facility] Blood 06/11/2022 8:12 PM CDT 06/11/2022 8:23 PM CDT us Marcelina Lo COMMUNICATION SPECIALIST LAB BLOOD ORDERABLES Final Re sult Performing Organization Address [facility] Co de Phone Number [facility] [place] [address] * POCT glucose (06/11/2022 8:07 PM CDT) Glucose, POC 169 70 - 199 mg/dL [facility] Blood 06/11/2022 8:07 PM CDT 06/11/2022 8:07 PM CDT us Catherine Adams MD LAB POCT ORDERABLES - DEVIC E Final Result [facility] Department [place] [address] * XR Chest 1 View (06/11/2022 4:07 PM CDT) Anatomical Region Laterality Modality Body, Chest N/A Computed Radiogr aphy 06/11/2022 5:24 PM CDT Impressions 06/11/2022 5:24 PM CDT Comparison made to examination of 06/11/2022 at 0543 hours Tip of the endotracheal tube projects approximately 5.5 cm above the boni. ??Nasogastric tube extends below the diaphragm with the tip excluded from the [id number]. ??Left internal jugular catheter projects at superior [...] diaphragm with the tip excluded from the [id number]. Left internal jugular catheter projects at superior [...] Potassium, bld 4.5 3.3 - 4.9 mmol/L [facility] Blood 06/11/2022 3:21 PM CDT 06/11/2022 3:29 PM CDT Marcelina Lo COMMUNICATION SPECIALIST LAB BLOOD ORDERABLES Final Re sult Performing Organization Address [facility]/ZIP Co de Phone Number [facility] Department [place] [address] * Lactate, whole blood (06/11/2022 3:21 PM CDT) Lactate, bld 0.9 0.7 - 2.0 mmol/L [facility] Blood 06/11/2022 3:21 PM CDT 06/11/2022 3:29 PM CDT Marcelina Lo COMMUNICATION SPECIALIST LAB BLOOD ORDERABLES Final Re sult Performing Organization Address City/[facility]/ZIP Co de Phone Number [facility] [place] [address] * (ABNORMAL) Blood gas, arterial (06/11/2022 3:21 PM CDT) pH, Art 7.39 7.35 - 7.45 [facility] PCO2, Arterial 39 35 - 45 mmHg [facility] PO2, Arterial 92 83 - 108 mmHg [facility] HCO3 Art (Calculated) 24 20 - 30 mmol/L [facility] BE, art -1 mmol/L [facility] Comment: Interpretive Data No Reference Range Established Current Interpretive Data was last revised on 2017 O2 Sat Art (Measured) 96(H) 90 - 95 % [facility] Blood 06/11/2022 3:21 PM CDT 06/11/2022 3:29 PM CDT Marcelina Lo COMMUNICATION SPECIALIST LAB BLOOD ORDERABLES Final Re sult Performing Organization Address [facility] Co de Phone Number [facility] [place] [address] * aPTT (06/11/2022 3:21 PM CDT) aPTT 30 27 - 37 sec [facility] Comment: Interpretive Data Therapeutic heparin range: 60.0 - 94.0 seconds. Based on correlation with therapeutic heparin activity range of 0.3-0.7 Units/mL. Current interpretive data was last revised on 2020. Blood 06/11/2022 3:21 PM CDT 06/11/2022 3:30 PM CDT Result [facility] Catherine Adams MD LAB BLOOD ORDERABLES Final Result Performing Organization Address [facility] de Phone Number [facility] [place] [address] * Protime-INR (06/11/2022 3:21 PM CDT) PT 10.7 9.2 - 13.5 sec [facility] INR 1.0 0.9 - 1.2 [facility] Comment: Interpretive data Oral anticoagulant therapeutic ranges: Venous thromboembolism prophylaxis or treatment: 2.0-3.0 CARDIOLOGY Standard range: 2.0-3.0 High-intensity range: 2.5-3.5 Refer to indication-specific guidelines for appropriate target ranges for prosthetic heart valve replacement. Current interpretive data was last revised on 2019. Blood 06/11/2022 3:21 PM CDT 06/11/2022 3:30 PM CDT Result [facility] Catherine Adams MD LAB BLOOD ORDERABLES Final Result Performing Organization Address [facility] de Phone Number [facility] Department [place] [address] * (ABNORMAL) CBC without differential (06/11/2022 3:21 PM CDT) WBC 10.7(H) 3.8 - 9.9 K/cumm [facility] Hgb 7.6(L) 13.0 - 17.5 g/dL [facility] Hct 22.8(L) 38.9 - 50.3 % [facility] Plt 175 150 - 400 K/cumm [facility] MPV 10.7 9.1 - 12.3 fL [facility] RBC 2.45(L) 4.30 - 5.80 M/cumm [facility] MCV 93.1 81.3 - 96.4 fL [facility] MCH 31.0 27.1 - 33.3 pg [facility] MCHC 33.3 32.3 - 35.7 g/dL [facility] RDW CV 13.1 11.1 - 14.9 % [facility] RDW SD 44.3 35.7 - 48.1 fL [facility] NRBC abs 0.02(H) 0.00 - 0.01 K/cumm [facility] Blood 06/11/2022 3:21 PM CDT 06/11/2022 3:30 PM CDT Catherine Adams MD LAB BLOOD ORDERABLES Final Result Performing Organization Address [facility] Co de Phone Number [facility] Department [place] [address] * POCT glucose (06/11/2022 3:20 PM CDT) Glucose, POC 130 70 - 199 mg/dL [facility] Blood 06/11/2022 3:20 PM CDT 06/11/2022 3:20 PM CDT us Catherine Adams MD LAB POCT ORDERABLES - DEVIC E Final Result [facility] Department [place] [address] * CT Chest Abdomen Pelvis WO Contrast [...] CDT) pH, Art 7.38 7.35 - 7.45 [facility] PCO2, Arterial 37 35 - 45 mmHg [facility] PO2, Arterial 139(H) 83 - 108 mmHg [facility] HCO3 Art (Calculated) 22 20 - 30 mmol/L [facility] BE, art -3 mmol/L [facility] Comment: Interpretive Data No Reference Range Established Current Interpretive Data was last revised on 2017 O2 Sat Art (Measured) 98(H) 90 - 95 % [facility] Blood 06/11/2022 12:1 1 PM CDT 06/11/2022 12:23 PM CDT Catherine Adams MD LAB BLOOD ORDERABLES Final Result [facility] Department of Laboratories [place], [place] [id number] * POCT glucose (06/11/2022 12:10 PM CDT) Glucose, POC 142 70 - 199 mg/dL [facility] Blood 06/11/2022 12:1 0 PM CDT 06/11/2022 12:10 PM CDT us Catherine Adams MD LAB POCT ORDERABLES - DEVIC E Final Result [facility] One [facility] Department [place] [address] * (ABNORMAL) Manual Differential (06/11/2022 8:48 AM CDT) Differential Manual [facility] Neutrophil abs 7.3(H) 1.7 - 6.5 K/cumm [facility] Imm gran abs 1.0(H) 0.0 - 0.1 K/cumm [facility] Lymphocyte abs 1.4 0.8 - 3.3 K/cumm [facility] Monocyte abs 0.4 0.2 - 0.8 K/cumm [facility] Eosinophil abs 0.3 0.0 - 0.5 K/cumm [facility] Neutrophil pct 70.0 % [facility] Comment: Interpretive Data Percent cell count reference ranges are not reported, since discordance with absolute values may lead to misinterpretation of CBC data. Current Interpretive Data was last revised on 2017. Lymphocyte pct 13.3 % [facility] Comment: Interpretive Data Percent cell count reference ranges are not reported, since discordance with absolute values may lead to misinterpretation of CBC data. Current Interpretive Data was last revised on 2017. Monocyte pct 4.2 % [facility] Comment: Interpretive Data Percent cell count reference ranges are not reported, since discordance with absolute values may lead to misinterpretation of CBC data. Current Interpretive Data was last revised on 2017. Eosinophil pct 3.3 % [facility] Comment: Interpretive Data Percent cell count reference ranges are not reported, since discordance with absolute values may lead to misinterpretation of CBC data. Current Interpretive Data was last revised on 2017. Metamyelocyte pct 6.7 % [facility] Myelocyte pct 2.5 % [facility] Blood 06/11/2022 8:48 AM CDT 06/11/2022 9:14 AM CDT Catherine Adams MD LAB BLOOD ORDERABLES Final Result Performing Organization Address City/[facility] Co de Phone Number ALESSANDRA CARRION [facility] Department [place] [address] * (ABNORMAL) eGFR (06/11/2022 8:48 AM CDT) eGFR 30(L) 90 - 130 mL/min/1. 73 [facility]2 [facility] Comment: Interpretive Data Reference Interval Normal [...] BLOOD ORDERABLES Final Result Performing Organization Address City/[facility] Co de Phone Number ALESSANDRA CARRION Billie [facility] Department [place] [address] * Lactate, whole blood (06/11/2022 8:48 AM CDT) [facility] Lactate, bld 1.1 0.7 - 2.0 mmol/L [facility] Blood 06/11/2022 8:48 AM CDT 06/11/2022 8:55 AM CDT Marcelina Lo COMMUNICATION SPECIALIST LAB BLOOD ORDERABLES Final Re sult [facility] [place] [address] * Magnesium (06/11/2022 8:48 AM CDT) [facility] Magnesium 2.5 1.4 - 2.5 mg/dL [facility] Blood 06/11/2022 8:48 AM CDT 06/11/2022 9:02 AM CDT Marcelina Lo COMMUNICATION SPECIALIST LAB BLOOD ORDERABLES Final Re sult [facility] [place] [address] * (ABNORMAL) Comprehensive metabolic panel (06/11/2022 8:48 AM CDT) [facility] Sodium 134(L) 135 - 145 mmol/L [facility] Potassium, pl 4.8 3.3 - 4.9 mmol/L [facility] Chloride 100 97 - 110 mmol/L [facility] CO2 23 22 - 32 mmol/L [facility] Anion gap 11 2 - 15 mmol/L [facility] BUN 22 8 - 25 mg/dL [facility] Creatinine 2.53(H) 0.80 - 1.30 mg/dL [facility] Glucose 175 70 - 199 mg/dL [facility] Comment: Interpretive Data Fasting glucose [...] 2017. Calcium 8.4(L) 8.5 - 10.3 mg/dL [facility] Bilirubin, total 0.9 0.1 - 1.2 mg/dL [facility] Protein, pl 6.0(L) 6.5 - 8.5 g/dL [facility] Albumin 2.8(L) 3.5 - 5.0 g/dL [facility] Alk phos 200(H) 40 - 130 Units/L [facility] ALT 47 7 - 55 Units/L [facility] AST 100(H) 10 - 50 Units/L [facility] Blood 06/11/2022 8:48 AM CDT 06/11/2022 9:02 AM CDT us Marcelina Lo COMMUNICATION SPECIALIST LAB BLOOD ORDERABLES Final Re sult [facility] One [facility] Department [place] [address] * (ABNORMAL) CBC with auto differential (06/11/2022 8:48 AM CDT) Pathologist [facility] [place] WBC 10.4(H) 3.8 - 9.9 K/cumm [facility] Hgb 7.8(L) 13.0 - 17.5 g/dL [facility] Hct 23.4(L) 38.9 - 50.3 % [facility] Plt 191 150 - 400 K/cumm [facility] MPV 10.7 9.1 - 12.3 fL [facility] RBC 2.49(L) 4.30 - 5.80 M/cumm [facility] MCV 94.0 81.3 - 96.4 fL [facility] MCH 31.3 27.1 - 33.3 pg [facility] MCHC 33.3 32.3 - 35.7 g/dL [facility] RDW CV 13.2 11.1 - 14.9 % [facility] RDW SD 45.3 35.7 - 48.1 fL [facility] NRBC abs 0.03(H) 0.00 - 0.01 K/cumm [facility] Blood 06/11/2022 8:48 AM CDT 06/11/2022 9:02 AM CDT us Marcelina Lo COMMUNICATION SPECIALIST LAB BLOOD ORDERABLES Final Re sult [facility] Department [place] [address] * POCT glucose (06/11/2022 8:46 AM CDT) Glucose, POC 169 70 - 199 mg/dL [facility] Blood 06/11/2022 8:46 AM CDT 06/11/2022 8:46 AM CDT us Catherine Adams MD LAB POCT ORDERABLES - DEVIC E Final Result Performing Organization Address City/[facility]/ZIP Co de Phone Number [facility] Department [place] [address] * (ABNORMAL) Blood gas, arterial (06/11/2022 6:34 AM CDT) pH, Art 7.43 7.35 - 7.45 [facility] PCO2, Arterial 34(L) 35 - 45 mmHg [facility] PO2, Arterial 87 83 - 108 mmHg [facility] HCO3 Art (Calculated) 24 20 - 30 mmol/L [facility] BE, art -1 mmol/L [facility] Comment: Interpretive Data No Reference Range Established Current Interpretive Data was last revised on 2017 O2 Sat Art (Measured) 97(H) 90 - 95 % [facility] Blood 06/11/2022 6:34 AM CDT 06/11/2022 6:44 AM CDT Catherine Adams MD LAB BLOOD ORDERABLES Final Result [facility] One [facility] Department [place] [address] * XR Chest 1 View (06/11/2022 5:48 [...] CDT) pH, Art 7.42 7.35 - 7.45 [facility] PCO2, Arterial 36 35 - 45 mmHg [facility] PO2, Arterial 115(H) 83 - 108 mmHg [facility] HCO3 Art (Calculated) 24 20 - 30 mmol/L [facility] BE, art -1 mmol/L [facility] Comment: Interpretive Data No Reference Range Established Current Interpretive Data was last revised on 2017 O2 Sat Art (Measured) 98(H) 90 - 95 % [facility] Blood 06/11/2022 3:31 AM CDT 06/11/2022 4:00 AM CDT us Marcelina Lo COMMUNICATION SPECIALIST LAB BLOOD ORDERABLES Final Re sult Performing Organization Address [facility] Co de Phone Number [facility] Department [place] [address] * Lactate, whole blood (06/11/2022 3:31 AM CDT) Lactate, bld 1.1 0.7 - 2.0 mmol/L [facility] Blood 06/11/2022 3:31 AM CDT 06/11/2022 4:00 AM CDT Marcelina Lo COMMUNICATION SPECIALIST LAB BLOOD ORDERABLES Final Re sult Performing Organization Address City/[facility]/ZIP Co de Phone Number [facility] Department [place] [employer] [address] * POCT glucose (06/11/2022 3:28 AM CDT) Glucose, POC 155 70 - 199 mg/dL [facility] Blood 06/11/2022 3:28 AM CDT 06/11/2022 3:28 AM CDT Catherine Adams MD LAB POCT ORDERABLES - DEVIC E Final Result Performing Organization Address City/[facility]/ZIP Co de Phone Number ALESSANDRA CARRION Billie [facility] Department [place] [address] * Blood culture Blood Antecubital, right (06/11/2022 [...] organism identification may be performed using the [employer] Gram-Positive Blood Culture Assay. This assay detects microbial DNA in positive blood culture broth via hybridization of target DNA to capture oligonucleotides on a microarray. This assay has been cleared by the [place] Food and Drug Administration and its performance characteristics have been verified by the [facility]biology [facility]. 5. ?For questions about this culture, contact the Microbiology Laboratory at [phone]. Interpretive data was last revised on 2020. Catherine Adams MD LAB MICROBIOLOGY - GENERAL ORDERABLES Final Result Performing Organization Address City/[facility]/ZIP Co de Phone Number ALESSANDRA CARRION Billie [facility] Department [place] [address] * Blood culture Blood Antecubital, left (06/11/2022 [...] organism identification may be performed using the [employer] Gram-Positive Blood Culture Assay. This assay detects microbial DNA in positive blood culture broth via hybridization of target DNA to capture oligonucleotides on a microarray. This assay has been cleared by the [place] Food and Drug Administration and its performance characteristics have been verified by the [facility]biology [facility]. 5. ?For questions about this culture, contact the Microbiology Laboratory at [phone]. Interpretive data was last revised on 2020. Catherine Adams MD LAB MICROBIOLOGY - GENERAL ORDERABLES Final Result ALESSANDRA CARRION [facility] Department [place] [address] * POCT glucose (06/11/2022 12:49 AM CDT) Glucose, POC 165 70 - 199 mg/dL [facility] Blood 06/11/2022 12:4 9 AM CDT 06/11/2022 12:49 AM CDT Catherine Adams MD LAB POCT ORDERABLES - DEVIC E Final Result Performing Organization Address [facility] de Phone Number [facility] Department [place] [address] * POCT glucose (06/10/2022 10:28 PM CDT) Pathologist [facility] [place] Glucose, POC 163 70 - 199 mg/dL [facility] Blood 06/10/2022 10:2 8 PM CDT 06/10/2022 10:28 PM CDT Catherine Adams MD LAB POCT ORDERABLES - DEVIC E Final Result Performing Organization Address [facility] de Phone Number [facility] Department [place] [address] * (ABNORMAL) eGFR (06/10/2022 10:27 PM CDT) [facility] eGFR 33(L) 90 - 130 mL/min/1. 73 m2 [facility] Comment: Interpretive Data Reference Interval Normal [...] Adams MD LAB BLOOD ORDERABLES Final Result [facility] One [facility] Department [place] [address] * (ABNORMAL) Manual Differential (06/10/2022 10:27 PM CDT) Differential Manual [facility] 118 [facility] Neutrophil abs 13.0(H) 1.7 - 6.5 K/cumm [facility] Imm gran abs 0.6(H) 0.0 - 0.1 K/cumm [facility] Lymphocyte abs 1.3 0.8 - 3.3 K/cumm [facility] Monocyte abs 1.5(H) 0.2 - 0.8 K/cumm [facility] Eosinophil abs 0.7(H) 0.0 - 0.5 K/cumm [facility] Basophil abs 0.1 0.0 - 0.1 K/cumm [facility] Neutrophil pct 75.6 % [facility] Comment: Interpretive Data Percent cell count reference ranges are not reported, since discordance with absolute values may lead to misinterpretation of CBC data. Current Interpretive Data was last revised on 2017. Lymphocyte pct 7.6 % [facility] Comment: Interpretive Data Percent cell count reference ranges are not reported, since discordance with absolute values may lead to misinterpretation of CBC data. Current Interpretive Data was last revised on 2017. Monocyte pct 8.5 % [facility] Comment: Interpretive Data Percent cell count reference ranges are not reported, since discordance with absolute values may lead to misinterpretation of CBC data. Current Interpretive Data was last revised on 2017. Eosinophil pct 4.2 % [facility] Comment: Interpretive Data Percent cell count reference ranges are not reported, since discordance with absolute values may lead to misinterpretation of CBC data. Current Interpretive Data was last revised on 2017. Basophil pct 0.8 % [facility] Comment: Interpretive Data Percent cell count reference ranges are not reported, since discordance with absolute values may lead to misinterpretation of CBC data. Current Interpretive Data was last revised on 2017. Metamyelocyte pct 1.7 % [facility] Myelocyte pct 0.8 % [facility] Promyelocyte pct 0.8 % [facility] Blood 06/10/2022 10:2 7 PM CDT 06/10/2022 10:44 PM CDT Catherine Adams MD LAB BLOOD ORDERABLES Final Result [facility] One [facility] Department [place] [address] * (ABNORMAL) Comprehensive metabolic panel (06/10/2022 10:27 PM CDT) Sodium 136 135 - 145 mmol/L [facility] Potassium, pl 4.9 3.3 - 4.9 mmol/L [facility] Chloride 99 97 - 110 mmol/L [facility] CO2 25 22 - 32 mmol/L [facility] Anion gap 12 2 - 15 mmol/L [facility] BUN 20 8 - 25 mg/dL [facility] Creatinine 2.33(H) 0.80 - 1.30 mg/dL [facility] Glucose 158 70 - 199 mg/dL [facility] Comment: Interpretive Data Fasting glucose [...] Calcium 8.6 8.5 - 10.3 mg/dL [facility] Bilirubin, total 1.0 0.1 - 1.2 mg/dL [facility] Protein, pl 6.2(L) 6.5 - 8.5 g/dL [facility] Albumin 3.1(L) 3.5 - 5.0 g/dL [facility] Alk phos 216(H) 40 - 130 Units/L [facility] ALT 49 7 - 55 Units/L [facility] AST 114(H) 10 - 50 Units/L [facility] Blood 06/10/2022 10:2 7 PM CDT 06/10/2022 10:37 PM CDT Catherine Adams MD LAB BLOOD ORDERABLES Final Result Performing Organization Address City/[facility]/ZIP Co de Phone Number [facility] Department [place] [address] * Magnesium (06/10/2022 10:27 PM CDT) Pathologist [facility] [place] Magnesium 2.5 1.4 - 2.5 mg/dL [facility] Blood 06/10/2022 10:2 7 PM CDT 06/10/2022 10:37 PM CDT Catherine Adams MD LAB BLOOD ORDERABLES Final Result [facility] Department [place] [address] * Lactate, whole blood (06/10/2022 10:27 PM CDT) Lactate, bld 1.1 0.7 - 2.0 mmol/L [facility] Blood 06/10/2022 10:2 7 PM CDT 06/10/2022 10:36 PM CDT Marcelina Lo COMMUNICATION SPECIALIST LAB BLOOD ORDERABLES Final Re sult Performing Organization Address [facility] Co de Phone Number [facility] Department [place] [address] * (ABNORMAL) Blood gas, arterial (06/10/2022 10:27 PM CDT) pH, Art 7.39 7.35 - 7.45 [facility] PCO2, Arterial 37 35 - 45 mmHg [facility] PO2, Arterial 98 83 - 108 mmHg [facility] HCO3 Art (Calculated) 23 20 - 30 mmol/L [facility] BE, art -2 mmol/L [facility] Comment: Interpretive Data No Reference Range Established Current Interpretive Data was last revised on 2017 O2 Sat Art (Measured) 97(H) 90 - 95 % [facility] Blood 06/10/2022 10:2 7 PM CDT 06/10/2022 10:36 PM CDT Marcelina Lo COMMUNICATION SPECIALIST LAB BLOOD ORDERABLES Final Re sult Performing Organization Address [facility] Co de Phone Number [facility] Department [place] [address] * Phosphorus (06/10/2022 10:27 PM CDT) Phosphorus, pl 3.6 2.3 - 4.5 mg/dL [facility] Blood 06/10/2022 10:2 7 PM CDT 06/10/2022 10:37 PM CDT Marcelina Lo COMMUNICATION SPECIALIST LAB BLOOD ORDERABLES Final Re sult Performing Organization Address City/[facility] Co de Phone Number [facility] [place] [address] * (ABNORMAL) Beta-hydroxybutyrate (06/10/2022 10:27 PM CDT) [facility] Beta-Hydroxybut yrate 1.1(H) 0.0 - 0.5 mmol/L [facility] Blood 06/10/2022 10:2 7 PM CDT 06/10/2022 10:37 PM CDT Marcelina Lo COMMUNICATION SPECIALIST LAB BLOOD ORDERABLES Edited R esult - Final [facility] [place] [address] * Lipase (06/10/2022 10:27 PM CDT) [facility] Lipase 26 10 - 99 Units/L [facility] Blood 06/10/2022 10:2 7 PM CDT 06/10/2022 10:37 PM CDT Marcelina Lo COMMUNICATION SPECIALIST LAB BLOOD ORDERABLES Final Re sult [facility] Department [place] [address] * (ABNORMAL) CBC with auto differential (06/10/2022 10:27 PM CDT) [facility] WBC 17.2(H) 3.8 - 9.9 K/cumm [facility] Hgb 9.0(L) 13.0 - 17.5 g/dL [facility] Hct 27.0(L) 38.9 - 50.3 % [facility] Plt 274 150 - 400 K/cumm [facility] MPV 10.7 9.1 - 12.3 fL [facility] RBC 2.88(L) 4.30 - 5.80 M/cumm [facility] MCV 93.8 81.3 - 96.4 fL [facility] MCH 31.3 27.1 - 33.3 pg [facility] MCHC 33.3 32.3 - 35.7 g/dL [facility] RDW CV 13.5 11.1 - 14.9 % [facility] RDW SD 46.1 35.7 - 48.1 fL [facility] NRBC abs 0.08(H) 0.00 - 0.01 K/cumm [facility] Blood 06/10/2022 10:2 7 PM CDT 06/10/2022 10:37 PM CDT us Marcelina Lo COMMUNICATION SPECIALIST LAB BLOOD ORDERABLES Final Re sult [facility] Department [place] [address] * POCT glucose (06/10/2022 5:13 PM CDT) Glucose, POC 106 70 - 199 mg/dL [facility] Blood 06/10/2022 5:13 PM CDT 06/10/2022 5:13 PM CDT us Catherine Adams MD LAB POCT ORDERABLES - DEVIC E Final Result Performing Organization Address City/[facility]/ZIP Co de Phone Number [facility] Department [place] [address] * (ABNORMAL) Triglycerides (06/10/2022 5:13 PM CDT) Triglycerides 401(H) <=149 mg/dL [facility] Comment: Interpretive Data Ages < [...] PM CDT 06/10/2022 5:39 PM CDT Narrative [facility] - 06/10/2022 6:07 PM CDT While on propofol infusion. us Catherine Adams MD LAB BLOOD ORDERABLES Final Result Performing Organization Address [facility] de Phone Number [facility] Department [place] [address] * (ABNORMAL) Blood gas, arterial (06/10/2022 2:24 PM CDT) pH, Art 7.38 7.35 - 7.45 [facility] PCO2, Arterial 39 35 - 45 mmHg [facility] PO2, Arterial 66(L) 83 - 108 mmHg [facility] HCO3 Art (Calculated) 24 20 - 30 mmol/L [facility] BE, art -2 mmol/L [facility] Comment: Interpretive Data No Reference Range Established Current Interpretive Data was last revised on 2017 O2 Sat Art (Measured) 91 90 - 95 % [facility] Blood 06/10/2022 2:24 PM CDT 06/10/2022 2:31 PM CDT us Marcelina oL NP LAB BLOOD ORDERABLES Final Re sult Performing Organization Address [facility] de Phone Number [facility] Department [place] [address] * POCT glucose (06/10/2022 1:13 PM CDT) [facility] Glucose, POC 189 70 - 199 mg/dL [facility] Blood 06/10/2022 1:13 PM CDT 06/10/2022 1:13 PM CDT us Catherine Adams MD LAB POCT ORDERABLES - DEVIC E Final Result Performing Organization Address [facility]/ZIP Co de Phone Number [facility] Department [place] [address] * Lactate, whole blood (06/10/2022 1:12 PM CDT) [facility] Lactate, bld 1.1 0.7 - 2.0 mmol/L [facility] Blood 06/10/2022 1:12 PM CDT 06/10/2022 1:25 PM CDT us Marcelina Lo COMMUNICATION SPECIALIST LAB BLOOD ORDERABLES Final Re sult Performing Organization Address [facility] Co de Phone Number [facility] [place] [address] * (ABNORMAL) Blood gas, arterial (06/10/2022 1:12 PM CDT) [facility] pH, Art 7.40 7.35 - 7.45 [facility] [facility] PCO2, Arterial 36 35 - 45 mmHg [facility] PO2, Arterial 67(L) 83 - 108 mmHg [facility] HCO3 Art (Calculated) 23 20 - 30 mmol/L [facility] BE, art -2 mmol/L [facility] Comment: Interpretive Data No Reference Range Established Current Interpretive Data was last revised on 2017 O2 Sat Art (Measured) 92 90 - 95 % [facility] Blood 06/10/2022 1:12 PM CDT 06/10/2022 1:25 PM CDT us Marcelina Lo COMMUNICATION SPECIALIST LAB BLOOD ORDERABLES Final Re sult ALESSANDRA AVILA [facility] Department [place] [address] * REMOVE VAD - DIFFERENT SESSION (06/10/2022 [...] pressure. 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 ??Impella is currently weaned to P2 and ready for removal. ?? Pre close system had been used with two 6 [place] pro style placed in orthogonal fashion prior [...] x2. 2. History of non ST elevation VA with mild LV dysfunction status post recent [...] CDT) ACT 183(H) 123 - 168 sec [facility] Blood 06/10/2022 9:56 AM CDT 06/10/2022 9:56 AM CDT Catherine Adams MD LAB POCT ORDERABLES - DEVIC E Final Result Performing Organization Address City/[facility]/ZIP Co de Phone Number [facility] Department [place] [employer] [place] [address] * (ABNORMAL) POCT Activated clotting time, low range (06/10/2022 8:08 AM CDT) ACT 214(H) 123 - 168 sec [facility] Blood 06/10/2022 8:08 AM CDT 06/10/2022 8:08 AM CDT Catherine Adams MD LAB POCT ORDERABLES - DEVIC E Final Result Performing Organization Address City/[facility]/ZIP Co de Phone Number [facility] Department [place] [address] * POCT glucose (06/10/2022 7:54 AM CDT) Glucose, POC 138 70 - 199 mg/dL [facility] Blood 06/10/2022 7:54 AM CDT 06/10/2022 7:54 AM CDT Catherine Adams MD LAB POCT ORDERABLES - DEVIC E Final Result [facility] Department [place] [address] * (ABNORMAL) eGFR (06/10/2022 7:52 AM CDT) eGFR 31(L) 90 - 130 mL/min/1. 73 m2 [facility] Comment: Interpretive Data Reference Interval Normal [...] Adams MD LAB BLOOD ORDERABLES Final Result [facility] Department [place] [address] * (ABNORMAL) Differential, auto (06/10/2022 7:52 AM CDT) Neutrophil abs 6.7(H) 1.7 - 6.5 K/cumm [facility] Imm gran abs 1.0(H) 0.0 - 0.1 K/cumm [facility] Lymphocyte abs 1.4 0.8 - 3.3 K/cumm [facility] Monocyte abs 0.9(H) 0.2 - 0.8 K/cumm [facility] Eosinophil abs 0.3 0.0 - 0.5 K/cumm [facility] Basophil abs 0.0 0.0 - 0.1 K/cumm [facility] Neutrophil pct 65.5 % [facility] Comment: Confirmed by smear review Interpretive Data Percent cell count reference ranges are not reported, since discordance with absolute values may lead to misinterpretation of CBC data. Current Interpretive Data was last revised on 2017. Imm gran pct 9.4 % [facility] Comment: Interpretive Data Percent cell count reference ranges are not reported, since discordance with absolute values may lead to misinterpretation of CBC data. Current Interpretive Data was last revised on 2017. Lymphocyte pct 13.4 % [facility] Comment: Interpretive Data Percent cell count reference ranges are not reported, since discordance with absolute values may lead to misinterpretation of CBC data. Current Interpretive Data was last revised on 2017. Monocyte pct 8.8 % [facility] Comment: Interpretive Data Percent cell count reference ranges are not reported, since discordance with absolute values may lead to misinterpretation of CBC data. Current Interpretive Data was last revised on 2017. Eosinophil pct 2.6 % [facility] Comment: Interpretive Data Percent cell count reference ranges are not reported, since discordance with absolute values may lead to misinterpretation of CBC data. Current Interpretive Data was last revised on 2017. Basophil pct 0.3 % [facility] Comment: Interpretive Data Percent cell count reference ranges are not reported, since discordance with absolute values may lead to misinterpretation of CBC data. Current Interpretive Data was last revised on 2017. Blood 06/10/2022 7:52 AM CDT 06/10/2022 8:07 AM CDT us Catherine Adams MD LAB BLOOD ORDERABLES Final Result Performing Organization Address [facility]/ZIP Co de Phone Number [facility] [place] [address] * Lactate, whole blood (06/10/2022 7:52 AM CDT) Lactate, bld 1.2 0.7 - 2.0 mmol/L [facility] Blood 06/10/2022 7:52 AM CDT 06/10/2022 8:02 AM CDT us Marcelina Lo NP LAB BLOOD ORDERABLES Final Re sult Performing Organization Address [facility] Co de Phone Number [facility] [place] [address] * (ABNORMAL) Blood gas, arterial (06/10/2022 7:52 AM CDT) pH, Art 7.46(H) 7.35 - 7.45 [facility] PCO2, Arterial 34(L) 35 - 45 mmHg [facility] PO2, Arterial 99 83 - 108 mmHg [facility] HCO3 Art (Calculated) 25 20 - 30 mmol/L [facility] BE, art 1 mmol/L [facility] Comment: Interpretive Data No Reference Range Established Current Interpretive Data was last revised on 2017 O2 Sat Art (Measured) 98(H) 90 - 95 % [facility] Blood 06/10/2022 7:52 AM CDT 06/10/2022 8:02 AM CDT Marcelina Lo COMMUNICATION SPECIALIST LAB BLOOD ORDERABLES Final Re sult Performing Organization Address City/[facility] Co de Phone Number [facility] Department [place] [address] * Magnesium (06/10/2022 7:52 AM CDT) Pathologist [facility] [place] Magnesium 2.4 1.4 - 2.5 mg/dL [facility] Blood 06/10/2022 7:52 AM CDT 06/10/2022 8:07 AM CDT Marcelina Lo COMMUNICATION SPECIALIST LAB BLOOD ORDERABLES Final Re sult Performing Organization Address [facility] de Phone Number [facility] Department [place] [address] * (ABNORMAL) Comprehensive metabolic panel (06/10/2022 7:52 AM CDT) Pathologist [facility] [place] Sodium 135 135 - 145 mmol/L [facility] Potassium, pl 4.3 3.3 - 4.9 mmol/L [facility] Chloride 100 97 - 110 mmol/L [facility] CO2 26 22 - 32 mmol/L [facility] Anion gap 9 2 - 15 mmol/L [facility] BUN 20 8 - 25 mg/dL [facility] Creatinine 2.44(H) 0.80 - 1.30 mg/dL [facility] Glucose 138 70 - 199 mg/dL [facility] Comment: Interpretive Data Fasting glucose [...] 2017. Calcium 8.4(L) 8.5 - 10.3 mg/dL [facility] Bilirubin, total 0.8 0.1 - 1.2 mg/dL [facility] Protein, pl 6.2(L) 6.5 - 8.5 g/dL [facility] Albumin 3.0(L) 3.5 - 5.0 g/dL [facility] Alk phos 169(H) 40 - 130 Units/L [facility] ALT 45 7 - 55 Units/L [facility] AST 117(H) 10 - 50 Units/L [facility] Blood 06/10/2022 7:52 AM CDT 06/10/2022 8:07 AM CDT us Marcelina Lo NP LAB BLOOD ORDERABLES Final Re sult [facility] Department [place] [address] * (ABNORMAL) CBC with auto differential (06/10/2022 7:52 AM CDT) WBC 10.2(H) 3.8 - 9.9 K/cumm [facility] Hgb 8.3(L) 13.0 - 17.5 g/dL [facility] Hct 25.1(L) 38.9 - 50.3 % [facility] Plt 201 150 - 400 K/cumm [facility] MPV 10.9 9.1 - 12.3 fL [facility] RBC 2.70(L) 4.30 - 5.80 M/cumm [facility] MCV 93.0 81.3 - 96.4 fL [facility] MCH 30.7 27.1 - 33.3 pg [facility] MCHC 33.1 32.3 - 35.7 g/dL [facility] RDW CV 13.3 11.1 - 14.9 % [facility] RDW SD 45.1 35.7 - 48.1 fL [facility] NRBC abs 0.02(H) 0.00 - 0.01 K/cumm [facility] Blood 06/10/2022 7:52 AM CDT 06/10/2022 8:07 AM CDT Marcelina Lo COMMUNICATION SPECIALIST LAB BLOOD ORDERABLES Final Re sult Performing Organization Address [facility] Co de Phone Number [facility] [place] [address] * Oxyhemoglobin, central venous (06/10/2022 5:36 AM CDT) Oxyhemoglobin, CV 70.2 % [facility] Comment: Interpretive Data No reference range established. Current interpretive data was last revised 2019. Blood 06/10/2022 5:36 AM CDT 06/10/2022 5:58 AM CDT Lavern Morrison MD LAB BLOOD ORDERABLES F inal Result Performing Organization Address [facility] Co de Phone Number [facility] [place] [employer] [address] * Lactate, whole blood (06/10/2022 5:36 AM CDT) Lactate, bld 1.4 0.7 - 2.0 mmol/L [facility] Blood 06/10/2022 5:36 AM CDT 06/10/2022 5:58 AM CDT Marcelina Lo COMMUNICATION SPECIALIST LAB BLOOD ORDERABLES Final Re sult Performing Organization Address [facility] Co de Phone Number [facility] [place] [address] * XR Chest 1 View (06/10/2022 5:32 AM CDT) Anatomical Region Laterality Modality Body, Chest N/A Computed Radiogr aphy 06/10/2022 11:3 8 AM CDT Impressions 06/10/2022 11:42 AM CDT Comparison is made with prior radiograph dated 06/09/2022 7:57 AM. ??Left internal jugular central venous catheter terminates in the proximal superior vena cava. Feeding tube courses below diaphragm with tip not seen. Inferior approach Neches-Liv catheter has tip projecting over the main [...] diaphragm with tip not seen. Inferior approach [place]eches-Liv catheter has tip projecting over the main [...] CDT) pH, Art 7.45 7.35 - 7.45 [facility] PCO2, Arterial 36 35 - 45 mmHg [facility] PO2, Arterial 92 83 - 108 mmHg [facility] HCO3 Art (Calculated) 26 20 - 30 mmol/L [facility] BE, art 1 mmol/L [facility] Comment: Interpretive Data No Reference Range Established Current Interpretive Data was last revised on 2017 O2 Sat Art (Measured) 97(H) 90 - 95 % [facility] Blood 06/10/2022 3:45 AM CDT 06/10/2022 3:52 AM CDT us Marcelina Lo NP LAB BLOOD ORDERABLES Final Re sult Performing Organization Address [facility] Co de Phone Number [facility] Department [place] [address] * POCT glucose (06/10/2022 3:42 AM CDT) Glucose, POC 150 70 - 199 mg/dL [facility] Blood 06/10/2022 3:42 AM CDT 06/10/2022 3:42 AM CDT us Catherine Adams MD LAB POCT ORDERABLES - DEVIC E Final Result Performing Organization Address [facility] Co de Phone Number [facility] Department [place] [address] * Lactate, whole blood (06/10/2022 12:26 AM CDT) Lactate, bld 1.4 0.7 - 2.0 mmol/L [facility] Blood 06/10/2022 12:2 6 AM CDT 06/10/2022 12:33 AM CDT us Catherine Adams MD LAB BLOOD ORDERABLES Final Result ALESSANDRA [facility] Department [place] [address] * (ABNORMAL) Blood gas, arterial (06/10/2022 12:26 AM CDT) pH, Art 7.45 7.35 - 7.[facility], Arterial 36 35 - 45 mmHg [facility] PO2, Arterial 102 83 - 108 mmHg [facility] HCO3 Art (Calculated) 26 20 - 30 mmol/L [facility] BE, art 2 mmol/L [facility] Comment: Interpretive Data No Reference Range Established Current Interpretive Data was last revised on 2017 O2 Sat Art (Measured) 96(H) 90 - 95 % [facility] Blood 06/10/2022 12:2 6 AM CDT 06/10/2022 12:33 AM CDT us Marcelina Lo NP LAB BLOOD ORDERABLES Final Re sult Performing Organization Address [facility] Co de Phone Number [facility] Department [place] [address] * POCT glucose (06/10/2022 12:21 AM CDT) Glucose, POC 157 70 - 199 mg/dL [facility] Blood 06/10/2022 12:2 1 AM CDT 06/10/2022 12:21 AM CDT us Catherine Adams MD LAB POCT ORDERABLES - DEVIC E Final Result Performing Organization Address [facility] Co de Phone Number [facility] [place] [address] * (ABNORMAL) Blood gas, arterial (06/09/2022 10:28 PM CDT) pH, Art 7.43 7.35 - 7.45 [facility] PCO2, Arterial 38 35 - 45 mmHg [facility] PO2, Arterial 93 83 - 108 mmHg [facility] HCO3 Art (Calculated) 26 20 - 30 mmol/L [facility] BE, art 1 mmol/L [facility] Comment: Interpretive Data No Reference Range Established Current Interpretive Data was last revised on 2017 O2 Sat Art (Measured) 97(H) 90 - 95 % [facility] Blood 06/09/2022 10:2 8 PM CDT 06/09/2022 10:38 PM CDT Catherine Adams MD LAB BLOOD ORDERABLES Final Result Performing Organization Address [facility]/ZIP Co de Phone Number [facility] Department [place] [address] * POCT glucose (06/09/2022 8:40 PM CDT) Pathologist [facility] [place] Glucose, POC 182 70 - 199 mg/dL [facility] Blood 06/09/2022 8:40 PM CDT 06/09/2022 8:40 PM CDT Catherine Adams MD LAB POCT ORDERABLES - DEVIC E Final Result Performing Organization Address [facility] Co de Phone Number [facility] Department [place] [address] * (ABNORMAL) eGFR (06/09/2022 8:33 PM CDT) eGFR 26(L) 90 - 130 mL/min/1. 73 m2 [facility] Comment: Interpretive Data Reference Interval Normal [...] PM CDT 06/09/2022 9:07 PM CDT Catherine Aadms MD LAB BLOOD ORDERABLES Final Result [facility] Department [place] [address] * (ABNORMAL) Differential, auto (06/09/2022 8:33 PM CDT) Neutrophil abs 5.8 1.7 - 6.5 K/cumm [facility] Imm gran abs 0.7(H) 0.0 - 0.1 K/cumm [facility] Lymphocyte abs 1.2 0.8 - 3.3 K/cumm [facility] Monocyte abs 1.0(H) 0.2 - 0.8 K/cumm [facility] Eosinophil abs 0.3 0.0 - 0.5 K/cumm [facility] Basophil abs 0.0 0.0 - 0.1 K/cumm [facility] Neutrophil pct 64.3 % [facility] Comment: Interpretive Data Percent cell count reference ranges are not reported, since discordance with absolute values may lead to misinterpretation of CBC data. Current Interpretive Data was last revised on 2017. Imm gran pct 7.7 % [facility] Comment: Interpretive Data Percent cell count reference ranges are not reported, since discordance with absolute values may lead to misinterpretation of CBC data. Current Interpretive Data was last revised on 2017. Lymphocyte pct 13.4 % [facility] Comment: Interpretive Data Percent cell count reference ranges are not reported, since discordance with absolute values may lead to misinterpretation of CBC data. Current Interpretive Data was last revised on 2017. Monocyte pct 11.5 % [facility] Comment: Interpretive Data Percent cell count reference ranges are not reported, since discordance with absolute values may lead to misinterpretation of CBC data. Current Interpretive Data was last revised on 2017. Eosinophil pct 2.8 % [facility] Comment: Interpretive Data Percent cell count reference ranges are not reported, since discordance with absolute values may lead to misinterpretation of CBC data. Current Interpretive Data was last revised on 2017. Basophil pct 0.3 % [facility] Comment: Interpretive Data Percent cell count reference ranges are not reported, since discordance with absolute values may lead to misinterpretation of CBC data. Current Interpretive Data was last revised on 2017. Blood 06/09/2022 8:33 PM CDT 06/09/2022 9:07 PM CDT Catherine Adams MD LAB BLOOD ORDERABLES Final Result [facility] Department [place] [address] * (ABNORMAL) Blood gas, arterial (06/09/2022 8:33 PM CDT) pH, Art 7.41 7.35 - 7.45 [facility] PCO2, Arterial 39 35 - 45 mmHg [facility] PO2, Arterial 92 83 - 108 mmHg [facility] HCO3 Art (Calculated) 25 20 - 30 mmol/L [facility] BE, art 0 mmol/L [facility] Comment: Interpretive Data No Reference Range Established Current Interpretive Data was last revised on 2017 O2 Sat Art (Measured) 96(H) 90 - 95 % [facility] Blood 06/09/2022 8:33 PM CDT 06/09/2022 8:58 PM CDT Marcelina Lo COMMUNICATION SPECIALIST LAB BLOOD ORDERABLES Final Re sult Performing Organization Address [facility] de Phone Number [facility] [place] [address] * (ABNORMAL) aPTT (06/09/2022 8:33 PM CDT) aPTT 92(H) 27 - 37 sec [facility] Comment: Interpretive Data Therapeutic heparin range: 60.0 - 94.0 seconds. Based on correlation with therapeutic heparin activity range of 0.3-0.7 Units/mL. Current interpretive data was last revised on 2020. Blood 06/09/2022 8:33 PM CDT 06/09/2022 9:01 PM CDT Narrative [facility] - 06/09/2022 9:28 PM CDT Draw STAT PTT 6 hrs after initiation of heparin infusion, draw STAT PTT 6 hours after each dose/rate change, and every 6 hours until 2 consecutive PTTs are within therapeutic range. Once two consecutive PTT's are therapeutic (60-94.9 seconds), then draw PTT every AM until heparin is discontinued. Result [facility] Conrad Weston Chi, MD LAB BLOOD ORDERABLES Ann Marie l Result Performing Organization Address [facility] Co de Phone Number [facility] Department [place] [address] * Phosphorus (06/09/2022 8:33 PM CDT) Phosphorus, pl 3.2 2.3 - 4.5 mg/dL [facility] Blood 06/09/2022 8:33 PM CDT 06/09/2022 9:07 PM CDT Marcelina Lo COMMUNICATION SPECIALIST LAB BLOOD ORDERABLES Final Re sult Performing Organization Address [facility] Co de Phone Number [facility] [place] [address] * Beta-hydroxybutyrate (06/09/2022 8:33 PM CDT) Beta-Hydroxybut yrate 0.3 0.0 - 0.5 mmol/L [facility] Blood 06/09/2022 8:33 PM CDT 06/09/2022 9:07 PM CDT Marcelina Lo COMMUNICATION SPECIALIST LAB BLOOD ORDERABLES Edited R esult - Final Performing Organization Address [facility] Co de Phone Number [facility] [place] [address] * Haptoglobin (06/09/2022 8:33 PM CDT) Haptoglobin 153.0 30.0 - 200.0 mg/dL [facility] Blood 06/09/2022 8:33 PM CDT 06/09/2022 9:07 PM CDT Catherine Adams MD LAB BLOOD ORDERABLES Final Result Performing Organization Address [facility] Co de Phone Number [facility] Department [place] [address] * Lipase (06/09/2022 8:33 PM CDT) Lipase 21 10 - 99 Units/L [facility] Blood 06/09/2022 8:33 PM CDT 06/09/2022 9:07 PM CDT Marcelina Lo COMMUNICATION SPECIALIST LAB BLOOD ORDERABLES Final Re sult Performing Organization Address [facility]/ZIP Co de Phone Number [facility] Department [place] [address] * (ABNORMAL) Lactate dehydrogenase (LD) (06/09/2022 8:33 PM CDT) [facility] Lactate dehydrogenase (LDH) 528(H) 100 - 250 Units/L [facility] Blood 06/09/2022 8:33 PM CDT 06/09/2022 9:07 PM CDT Catherine Adams MD LAB BLOOD ORDERABLES Final Result [facility] Department [place] [address] * Magnesium (06/09/2022 8:33 PM CDT) [facility] Magnesium 2.4 1.4 - 2.5 mg/dL [facility] Blood 06/09/2022 8:33 PM CDT 06/09/2022 9:07 PM CDT us Marcelina Lo NP LAB BLOOD ORDERABLES Final Re sult Performing Organization Address City/[facility]/ZIP Co de Phone Number [facility] Department [place] [address] * (ABNORMAL) Comprehensive metabolic panel (06/09/2022 8:33 PM CDT) [facility] Sodium 134(L) 135 - 145 mmol/L [facility] Potassium, pl 4.4 3.3 - 4.9 mmol/L [facility] Chloride 99 97 - 110 mmol/L [facility] CO2 25 22 - 32 mmol/L [facility] Anion gap 10 2 - 15 mmol/L [facility] BUN 24 8 - 25 mg/dL [facility] Creatinine 2.82(H) 0.80 - 1.30 mg/dL [facility] Glucose 173 70 - 199 mg/dL [facility] Comment: Interpretive Data Fasting glucose [...] 2017. Calcium 8.3(L) 8.5 - 10.3 mg/dL [facility] Bilirubin, total 0.8 0.1 - 1.2 mg/dL [facility] Protein, pl 6.1(L) 6.5 - 8.5 g/dL [facility] Albumin 2.8(L) 3.5 - 5.0 g/dL [facility] Alk phos 168(H) 40 - 130 Units/L [facility] [facility] ALT 45 7 - 55 Units/L [facility] AST 129(H) 10 - 50 Units/L [facility] Blood 06/09/2022 8:33 PM CDT 06/09/2022 9:07 PM CDT us Marcelina Lo COMMUNICATION SPECIALIST LAB BLOOD ORDERABLES Final Re sult [facility] One [facility] Department [place] [address] * (ABNORMAL) CBC with auto differential (06/09/2022 8:33 PM CDT) WBC 9.1 3.8 - 9.9 K/cumm [facility] Hgb 8.2(L) 13.0 - 17.5 g/dL [facility] Hct 24.8(L) 38.9 - 50.3 % [facility] Plt 208 150 - 400 K/cumm [facility] MPV 11.0 9.1 - 12.3 fL [facility] RBC 2.66(L) 4.30 - 5.80 M/cumm [facility] MCV 93.2 81.3 - 96.4 fL [facility] MCH 30.8 27.1 - 33.3 pg [facility] MCHC 33.1 32.3 - 35.7 g/dL [facility] RDW CV 13.2 11.1 - 14.9 % [facility] RDW SD 45.5 35.7 - 48.1 fL [facility] NRBC abs 0.00 0.00 - 0.01 K/cumm [facility] Blood 06/09/2022 8:33 PM CDT 06/09/2022 9:07 PM CDT Marcelina Lo COMMUNICATION SPECIALIST LAB BLOOD ORDERABLES Final Re sult Performing Organization Address [facility] [place] [address] * Oxyhemoglobin, pulmonary artery (06/09/2022 3:52 PM CDT) Oxyhemoglobin, PA 66.5 % [facility] Comment: Interpretive Data No reference range established. Current interpretive data was last revised 2019. Blood 06/09/2022 3:52 PM CDT 06/09/2022 4:01 PM CDT Marcelina Lo COMMUNICATION SPECIALIST LAB BLOOD ORDERABLES Final Re sult Performing Organization Address [facility] Co de Phone Number [facility] [place] [address] * Lactate, whole blood (06/09/2022 3:52 PM CDT) Lactate, bld 1.4 0.7 - 2.0 mmol/L [facility] Blood 06/09/2022 3:52 PM CDT 06/09/2022 4:01 PM CDT Marcelina Lo COMMUNICATION SPECIALIST LAB BLOOD ORDERABLES Final Re sult Performing Organization Address City/[facility] Co de Phone Number [facility] [place] [address] * (ABNORMAL) Hemoglobin total, pulmonary artery (06/09/2022 3:52 PM CDT) Hemoglobin total, PA 8.9(L) 13.0 - 17.5 g/dL [facility] Blood 06/09/2022 3:52 PM CDT 06/09/2022 4:01 PM CDT Marcelina Lo NP LAB BLOOD ORDERABLES Final Re sult Performing Organization Address [facility]/ZIP Co de Phone Number [facility] One [facility] [place] [address] * (ABNORMAL) Blood gas, arterial (06/09/2022 3:52 PM CDT) pH, Art 7.38 7.35 - 7.45 [facility] PCO2, Arterial 45 35 - 45 mmHg [facility] PO2, Arterial 80(L) 83 - 108 mmHg [facility] HCO3 Art (Calculated) 27 20 - 30 mmol/L [facility] BE, art 1 mmol/L [facility] Comment: Interpretive Data No Reference Range Established Current Interpretive Data was last revised on 2017 O2 Sat Art (Measured) 94 90 - 95 % [facility] Blood 06/09/2022 3:52 PM CDT 06/09/2022 4:01 PM CDT Catherine Adams MD LAB BLOOD ORDERABLES Final Result [facility] One [facility] [place] [address] * POCT glucose (06/09/2022 3:50 PM CDT) Glucose, POC 136 70 - 199 mg/dL [facility] Blood 06/09/2022 3:50 PM CDT 06/09/2022 3:50 PM CDT Catherine Adams MD LAB POCT ORDERABLES - DEVIC E Final Result Performing Organization Address [facility] de Phone Number [facility] [place] [address] * Lactate, whole blood (06/09/2022 11:59 AM CDT) Lactate, bld 1.3 0.7 - 2.0 mmol/L [facility] Blood 06/09/2022 11:5 9 AM CDT 06/09/2022 12:10 PM CDT Marcelina Lo COMMUNICATION SPECIALIST LAB BLOOD ORDERABLES Final Re sult Performing Organization Address [facility] de Phone Number [facility] [place] [address] * (ABNORMAL) Hemoglobin total, pulmonary artery (06/09/2022 11:59 AM CDT) Hemoglobin total, PA 10.2(L) 13.0 - 17.5 g/dL [facility] Blood 06/09/2022 11:5 9 AM CDT 06/09/2022 12:10 PM CDT Marcelina Lo COMMUNICATION SPECIALIST LAB BLOOD ORDERABLES Final Re sult Performing Organization Address [facility] de Phone Number [facility] [place] [address] * Oxyhemoglobin, pulmonary artery (06/09/2022 11:59 AM CDT) Oxyhemoglobin, PA 65.2 % [facility] Comment: Interpretive Data No reference range established. Current interpretive data was last revised 2019. Blood 06/09/2022 11:5 9 AM CDT 06/09/2022 12:10 PM CDT Marcelina Lo NP LAB BLOOD ORDERABLES Final Re sult Performing Organization Address [facility] Co de Phone Number [facility] Department [place] [address] * (ABNORMAL) aPTT (06/09/2022 11:59 AM CDT) aPTT 79(H) 27 - 37 sec [facility] Comment: Interpretive Data Therapeutic heparin range: 60.0 - 94.0 seconds. Based on correlation with therapeutic heparin activity range of 0.3-0.7 Units/mL. Current interpretive data was last revised on 2020. Blood 06/09/2022 11:5 9 AM CDT 06/09/2022 12:14 PM CDT Narrative [facility] - 06/09/2022 12:40 PM CDT Draw [...] Ann Marie l Result Performing Organization Address [facility] Co de Phone Number [facility] Department [place] [address] * POCT glucose (06/09/2022 11:58 AM CDT) Glucose, POC 171 70 - 199 mg/dL [facility] Blood 06/09/2022 11:5 8 AM CDT 06/09/2022 11:58 AM CDT Catherine Adams MD LAB POCT ORDERABLES - DEVIC E Final Result Performing Organization Address [facility] Co de Phone Number [facility] Department [place] [address] * XR Chest 1 View (06/09/2022 8:57 [...] diaphragm with tip not seen. Inferior approach Neches-Liv catheter has been retracted with the tip projecting over the main pulmonary artery. An Impella device is in place, unchanged. There is mild cardiomegaly, unchanged. There is moderate asymmetric left lung and right upper lobe pulmonary edema. Likely small left pleural effusion although the left costophrenic angle is partially off the [id number]. No right pleural effusion or pneumothorax. Second exam ??06/09/2022 7:57 AM The Neches-Liv catheter has been slightly advanced with tip [...] diaphragm with tip not seen. Inferior approach Neches-Liv catheter has been retracted with the tip projecting over the main pulmonary artery. An Impella device is in place, unchanged. There is mild cardiomegaly, unchanged. There is moderate asymmetric left lung and right upper lobe pulmonary edema. Likely small left pleural effusion although the left costophrenic angle is partially off the [id number]. No right pleural effusion or pneumothorax. Second exam 06/09/2022 7:57 AM The Neches-Liv catheter has been slightly advanced with tip [...] 20(L) 90 - 130 mL/min/1. 73 m2 [facility] Comment: Interpretive Data Reference Interval Normal [...] Adams MD LAB BLOOD ORDERABLES Final Result [facility] One [facility] Department [place] [address] * (ABNORMAL) Differential, auto (06/09/2022 7:57 AM CDT) Neutrophil abs 5.8 1.7 - 6.5 K/cumm [facility] Imm gran abs 0.5(H) 0.0 - 0.1 K/cumm [facility] Lymphocyte abs 1.2 0.8 - 3.3 K/cumm [facility] Monocyte abs 1.0(H) 0.2 - 0.8 K/cumm [facility] Eosinophil abs 0.2 0.0 - 0.5 K/cumm [facility] Basophil abs 0.0 0.0 - 0.1 K/cumm [facility] Neutrophil pct 67.0 % [facility] Comment: Interpretive Data Percent cell count reference ranges are not reported, since discordance with absolute values may lead to misinterpretation of CBC data. Current Interpretive Data was last revised on 2017. Imm gran pct 5.6 % [facility] Comment: Interpretive Data Percent cell count reference ranges are not reported, since discordance with absolute values may lead to misinterpretation of CBC data. Current Interpretive Data was last revised on 2017. Lymphocyte pct 13.6 % [facility] Comment: Interpretive Data Percent cell count reference ranges are not reported, since discordance with absolute values may lead to misinterpretation of CBC data. Current Interpretive Data was last revised on 2017. Monocyte pct 11.4 % [facility] Comment: Interpretive Data Percent cell count reference ranges are not reported, since discordance with absolute values may lead to misinterpretation of CBC data. Current Interpretive Data was last revised on 2017. Eosinophil pct 2.2 % [facility] Comment: Interpretive Data Percent cell count reference ranges are not reported, since discordance with absolute values may lead to misinterpretation of CBC data. Current Interpretive Data was last revised on 2017. Basophil pct 0.2 % [facility] Comment: Interpretive Data Percent cell count reference ranges are not reported, since discordance with absolute values may lead to misinterpretation of CBC data. Current Interpretive Data was last revised on 2017. Blood 06/09/2022 7:57 AM CDT 06/09/2022 8:19 AM CDT Catherine Adams MD LAB BLOOD ORDERABLES Final Result Performing Organization Address City/[facility]/ZIP Co de Phone Number [facility] Department [place] [address] * Magnesium (06/09/2022 7:57 AM CDT) [facility] Magnesium 2.3 1.4 - 2.5 mg/dL [facility] Blood 06/09/2022 7:57 AM CDT 06/09/2022 8:19 AM CDT us Marcelina Lo NP LAB BLOOD ORDERABLES Final Re sult Performing Organization Address [facility]/ZIP Co de Phone Number [facility] Department [place] [address] * (ABNORMAL) Comprehensive metabolic panel (06/09/2022 7:57 AM CDT) Pathologist [facility] [place] Sodium 134(L) 135 - 145 mmol/L [facility] Potassium, pl 4.5 3.3 - 4.9 mmol/L [facility] Chloride 99 97 - 110 mmol/L [facility] CO2 28 22 - 32 mmol/L [facility] Anion gap 7 2 - 15 mmol/L [facility] BUN 32(H) 8 - 25 mg/dL [facility] Creatinine 3.50(H) 0.80 - 1.30 mg/dL [facility] Glucose 171 70 - 199 mg/dL [facility] Comment: Interpretive Data Fasting glucose [...] 2017. Calcium 8.4(L) 8.5 - 10.3 mg/dL [facility] Bilirubin, total 0.6 0.1 - 1.2 mg/dL [facility] Protein, pl 5.8(L) 6.5 - 8.5 g/dL [facility] Albumin 2.8(L) 3.5 - 5.0 g/dL [facility] Alk phos 165(H) 40 - 130 Units/L [facility] ALT 43 7 - 55 Units/L [facility] AST 133(H) 10 - 50 Units/L [facility] Blood 06/09/2022 7:57 AM CDT 06/09/2022 8:19 AM CDT Marcelina Lo COMMUNICATION SPECIALIST LAB BLOOD ORDERABLES Final Re sult [facility] One [facility] Department [place] [address] * Potassium, whole blood (06/09/2022 7:57 AM CDT) [facility] Potassium, bld 4.2 3.3 - 4.9 mmol/L [facility] Blood 06/09/2022 7:57 AM CDT 06/09/2022 8:14 AM CDT Marcelina oL COMMUNICATION SPECIALIST LAB BLOOD ORDERABLES Final Re sult [facility] Department [place] [address] * (ABNORMAL) Blood gas, arterial (06/09/2022 7:57 AM CDT) Pathologist [facility] [place] pH, Art 7.43 7.35 - 7.45 [facility] PCO2, Arterial 39 35 - 45 mmHg [facility] PO2, Arterial 107 83 - 108 mmHg [facility] HCO3 Art (Calculated) 27 20 - 30 mmol/L [facility] BE, art 2 mmol/L [facility] Comment: Interpretive Data No Reference Range Established Current Interpretive Data was last revised on 2017 O2 Sat Art (Measured) 97(H) 90 - 95 % [facility] Blood 06/09/2022 7:57 AM CDT 06/09/2022 8:14 AM CDT Marcelina Lo COMMUNICATION SPECIALIST LAB BLOOD ORDERABLES Final Re sult Performing Organization Address [facility]/ZIP Co de Phone Number [facility] Department [place] [address] * Lactate, whole blood (06/09/2022 7:57 AM CDT) Pathologist [facility] [place] Lactate, bld 1.1 0.7 - 2.0 mmol/L [facility] Blood 06/09/2022 7:57 AM CDT 06/09/2022 8:14 AM CDT Marcelina Lo COMMUNICATION SPECIALIST LAB BLOOD ORDERABLES Final Re sult [facility] [place] [address] * Type and screen (06/09/2022 7:57 AM CDT) Pathologist [facility] [place] ABO Rh A Positive [facility] Maribel, indirect Negative [facility] Blood 06/09/2022 7:57 AM CDT 06/09/2022 8:20 AM CDT Narrative [facility] - 06/09/2022 9:11 AM CDT Has the patient had Daratumumab or Isatuximab in the past 6 months?->Unknown Catherine Adams MD LAB BLOOD BANK TEST ORDERAB LES Final Result Performing Organization Address [facility] Co de Phone Number [facility] [place] [address] * (ABNORMAL) Hemoglobin total, pulmonary artery (06/09/2022 7:57 AM CDT) Hemoglobin total, PA 8.7(L) 13.0 - 17.5 g/dL [facility] Blood 06/09/2022 7:57 AM CDT 06/09/2022 8:43 AM CDT Marcelina Lo COMMUNICATION SPECIALIST LAB BLOOD ORDERABLES Final Re sult Performing Organization Address [facility] [place] [address] * Oxyhemoglobin, pulmonary artery (06/09/2022 7:57 AM CDT) Oxyhemoglobin, PA 55.8 % [facility] Comment: Interpretive Data No reference range established. Current interpretive data was last revised 2019. Blood 06/09/2022 7:57 AM CDT 06/09/2022 8:43 AM CDT Marcelina Lo COMMUNICATION SPECIALIST LAB BLOOD ORDERABLES Final Re sult Performing Organization Address [facility] Co de Phone Number [facility] [employer] [address] * (ABNORMAL) CBC with auto differential (06/09/2022 7:57 AM CDT) [facility] WBC 8.6 3.8 - 9.9 K/cumm [facility] Hgb 8.1(L) 13.0 - 17.5 g/dL [facility] Hct 23.5(L) 38.9 - 50.3 % [facility] Plt 179 150 - 400 K/cumm [facility] MPV 11.1 9.1 - 12.3 fL [facility] RBC 2.61(L) 4.30 - 5.80 M/cumm [facility] MCV 90.0 81.3 - 96.4 fL [facility] MCH 31.0 27.1 - 33.3 pg [facility] MCHC 34.5 32.3 - 35.7 g/dL [facility] RDW CV 13.4 11.1 - 14.9 % [facility] RDW SD 44.2 35.7 - 48.1 fL [facility] NRBC abs 0.00 0.00 - 0.01 K/cumm [facility] Blood 06/09/2022 7:57 AM CDT 06/09/2022 8:19 AM CDT us Marcelina Lo NP LAB BLOOD ORDERABLES Final Re sult [facility] Department [place] [employer] [place] [address] * POCT glucose (06/09/2022 7:55 AM CDT) [facility] Glucose, POC 155 70 - 199 mg/dL [facility] Blood 06/09/2022 7:55 AM CDT 06/09/2022 7:55 AM CDT us Catherine Adams MD LAB POCT ORDERABLES - DEVIC E Final Result Performing Organization Address City/[facility]/ZIP Co de Phone Number [facility] Department [place] [address] * (ABNORMAL) aPTT (06/09/2022 5:24 AM CDT) aPTT 66(H) 27 - 37 sec [facility] Comment: Interpretive Data Therapeutic heparin range: 60.0 - 94.0 seconds. Based on correlation with therapeutic heparin activity range of 0.3-0.7 Units/mL. Current interpretive data was last revised on 2020. Blood 06/09/2022 5:24 AM CDT 06/09/2022 5:53 AM CDT Narrative [facility] - 06/09/2022 6:02 AM CDT Draw [...] Ann Marie l Result Performing Organization Address [facility] de Phone Number [facility] Department [place] [address] * (ABNORMAL) Blood gas, arterial (06/09/2022 5:24 AM CDT) pH, Art 7.44 7.35 - 7.45 [facility] PCO2, Arterial 38 35 - 45 mmHg [facility] PO2, Arterial 71(L) 83 - 108 mmHg [facility] HCO3 Art (Calculated) 26 20 - 30 mmol/L [facility] BE, art 2 mmol/L [facility] Comment: Interpretive Data No Reference Range Established Current Interpretive Data was last revised on 2017 O2 Sat Art (Measured) 94 90 - 95 % [facility] Blood 06/09/2022 5:24 AM CDT 06/09/2022 5:37 AM CDT us Marcelina Lo NP LAB BLOOD ORDERABLES Final Re sult Performing Organization Address [facility] Co de Phone Number [facility] Department [place] [address] * XR Chest 1 View (06/09/2022 4:30 [...] diaphragm with tip not seen. Inferior approach Neches-Liv catheter has been retracted with the tip projecting over the main pulmonary artery. An Impella device is in place, unchanged. There is mild cardiomegaly, unchanged. There is moderate asymmetric left lung and right upper lobe pulmonary edema. Likely small left pleural effusion although the left costophrenic angle is partially off the [id number]. No right pleural effusion or pneumothorax. Second exam ??06/09/2022 7:57 AM The Neches-Liv catheter has been slightly advanced with tip [...] diaphragm with tip not seen. Inferior approach Neches-Liv catheter has been retracted with the tip projecting over the main pulmonary artery. An Impella device is in place, unchanged. There is mild cardiomegaly, unchanged. There is moderate asymmetric left lung and right upper lobe pulmonary edema. Likely small left pleural effusion although the left costophrenic angle is partially off the [id number]. No right pleural effusion or pneumothorax. Second exam 06/09/2022 7:57 AM The Neches-Liv catheter has been slightly advanced with tip [...] WBC, ur 0-5 0 - 5 /HPF [facility] RBC, ur 6-10(A) 0 - 2 /HPF [facility] Hyaline casts, ur 1-5 0 - 10 /LPF [facility] Granular casts, ur 1-5(A) 0 - 0 /LPF [facility] Culture Reflex Comment Reflex conditions for urine culture (WBC >10) not met. [facility] Urine 06/09/2022 4:08 AM CDT 06/09/2022 4:16 AM CDT Catherine Adams MD LAB URINE ORDERABLES Final Result [facility] [place] [address] * (ABNORMAL) Urinalysis reflex to microscopic and culture Urine (06/09/2022 4:08 AM CDT) Color, ur Yellow Yellow [facility] Clarity, ur Clear Clear [facility] Specific gravity, ur 1.018 1.003 - 1.030 [facility] pH, urine 5.5 [facility] Protein, ur ql 1+(A) Negative [facility] Glucose, ur ql 4+(A) Negative [facility] Ketones, ur Negative Negative [facility] Bilirubin, ur Negative Negative [facility] Blood, ur 2+(A) Negative [facility] Urobilinogen, ur <2.0 <2.0 mg/dL [facility] Nitrite, ur Negative Negative [facility] Leukocyte esterase, ur Negative Negative [facility] UA reflex comment Reflex to microscopic UA will be performed. [facility] Urine 06/09/2022 4:08 AM CDT 06/09/2022 4:16 AM CDT Narrative [facility] - 06/09/2022 4:35 AM CDT ?? Urine pH is affected by diet, medications, systemic acid-base disturbances, and renal tubular function. ??pH may affect urinary stone formation. ??For example, urine pH below 6.0 may help reduce the tendency for calcium phosphate stones and pH greater than 6.0 may reduce the tendency for uric acid stone formation. Source: [facility] [employer]. Last revised 08-31-2017 Catherine Adams MD LAB MICROBIOLOGY - GENERAL ORDERABLES Final Result Performing Organization Address [facility] Co de Phone Number [facility] Department [place] [address] * POCT glucose (06/09/2022 4:06 AM CDT) Glucose, POC 147 70 - 199 mg/dL [facility] Blood 06/09/2022 4:06 AM CDT 06/09/2022 4:06 AM CDT Catherine Adams MD LAB POCT ORDERABLES - DEVIC E Final Result Performing Organization Address [facility] Co de Phone Number [facility] Department [place] [address] * (ABNORMAL) Hemoglobin and hematocrit (06/08/2022 11:27 PM CDT) Hgb 7.5(L) 13.0 - 17.5 g/dL [facility] Hct 22.0(L) 38.9 - 50.3 % [facility] Blood 06/08/2022 11:2 7 PM CDT 06/08/2022 11:40 PM CDT Meme Castro MD LAB BLOOD ORDERABLES Final Result Performing Organization Address [facility] Co de Phone Number [facility] [place] [address] * (ABNORMAL) Hemoglobin total, pulmonary artery (06/08/2022 11:27 PM CDT) Pathologist [facility] [place] Hemoglobin total, PA 8.1(L) 13.0 - 17.5 g/dL [facility] Blood 06/08/2022 11:2 7 PM CDT 06/08/2022 11:36 PM CDT Marcelina Lo COMMUNICATION SPECIALIST LAB BLOOD ORDERABLES Final Re sult Performing Organization Address [facility] Co de Phone Number [facility] [place] [address] * Oxyhemoglobin, pulmonary artery (06/08/2022 11:27 PM CDT) Pathologist [facility] [place] Oxyhemoglobin, PA 57.4 % [facility] Comment: Interpretive Data No reference range established. Current interpretive data was last revised 2019. Blood 06/08/2022 11:2 7 PM CDT 06/08/2022 11:36 PM CDT Marcelina Lo COMMUNICATION SPECIALIST LAB BLOOD ORDERABLES Final Re sult Performing Organization Address [facility] Co de Phone Number [facility] Department [place] [address] * (ABNORMAL) aPTT (06/08/2022 11:27 PM CDT) Pathologist [facility] [place] aPTT 44(H) 27 - 37 sec [facility] Comment: Interpretive Data Therapeutic heparin range: 60.0 - 94.0 seconds. Based on correlation with therapeutic heparin activity range of 0.3-0.7 Units/mL. Current interpretive data was last revised on 2020. Blood 06/08/2022 11:2 7 PM CDT 06/09/2022 12:13 AM CDT Narrative [facility] - 06/09/2022 12:22 AM CDT Draw [...] LAB BLOOD ORDERAB[place] [address] * POCT glucose (06/08/2022 11:25 PM CDT) [facility] Glucose, POC 156 70 - 199 mg/dL [facility] Blood 06/08/2022 11:2 5 PM CDT 06/08/2022 11:25 PM CDT Catherine Adams MD LAB POCT ORDERABLES - [place] [address] * Phosphorus (06/08/2022 8:08 PM CDT) Pathologist [facility] [place] Phosphorus, pl 3.7 2.3 - 4.5 mg/dL [facility] Blood 06/08/2022 8:08 PM CDT 06/08/2022 8:31 PM CDT Catherine Adams MD LAB BLOOD ORDERABLES Final Result Performing Organization Address [facility] Co de Phone Number [facility] [place] [address] * Magnesium (06/08/2022 8:08 PM CDT) Pathologist [facility] [place] Magnesium 2.4 1.4 - 2.5 mg/dL [facility] Blood 06/08/2022 8:08 PM CDT 06/08/2022 8:31 PM CDT Result [facility] Catherine Adams MD LAB BLOOD ORDERABLES Final Result Performing Organization Address [facility] de Phone Number [facility] Department [place] [address] * (ABNORMAL) eGFR (06/08/2022 8:08 PM CDT) [facility] eGFR 14(L) 90 - 130 mL/min/1. 73 m2 [facility] Comment: Interpretive Data Reference Interval Normal [...] Ann Marie l Result Performing Organization Address City/[facility] Co de Phone Number [facility] Department [place] [employer] [place] [address] * (ABNORMAL) Haptoglobin (06/08/2022 8:08 PM CDT) Haptoglobin 219.0(H) 30.0 - 200.0 mg/dL [facility] Blood 06/08/2022 8:0 8 PM CDT 06/08/2022 8:31 PM CDT Result [facility] Catherine Adams MD LAB BLOOD ORDERABLES Final Result Performing Organization Address [facility] Co de Phone Number [facility] Department [place] [address] * Lipase (06/08/2022 8:08 PM CDT) Lipase 11 10 - 99 Units/L [facility] Blood 06/08/2022 8:08 PM CDT 06/08/2022 8:31 PM CDT Result [facility] Catherine Adams MD LAB BLOOD ORDERABLES Final Result Performing Organization Address City/[facility] Co de Phone Number [facility] Department [place] [address] * (ABNORMAL) Differential, auto (06/08/2022 8:08 PM CDT) Neutrophil abs 7.0(H) 1.7 - 6.5 K/cumm [facility] Imm gran abs 0.4(H) 0.0 - 0.1 K/cumm [facility] Lymphocyte abs 0.9 0.8 - 3.3 K/cumm [facility] Monocyte abs 0.9(H) 0.2 - 0.8 K/cumm [facility] Eosinophil abs 0.1 0.0 - 0.5 K/cumm [facility] Basophil abs 0.0 0.0 - 0.1 K/cumm [facility] Neutrophil pct 75.3 % [facility] Comment: Interpretive Data Percent cell count reference ranges are not reported, since discordance with absolute values may lead to misinterpretation of CBC data. Current Interpretive Data was last revised on 2017. Imm gran pct 3.8 % [facility] Comment: Interpretive Data Percent cell count reference ranges are not reported, since discordance with absolute values may lead to misinterpretation of CBC data. Current Interpretive Data was last revised on 2017. Lymphocyte pct 10.0 % [facility] Comment: Interpretive Data Percent cell count reference ranges are not reported, since discordance with absolute values may lead to misinterpretation of CBC data. Current Interpretive Data was last revised on 2017. Monocyte pct 9.8 % [facility] Comment: Interpretive Data Percent cell count reference ranges are not reported, since discordance with absolute values may lead to misinterpretation of CBC data. Current Interpretive Data was last revised on 2017. Eosinophil pct 1.0 % [facility] Comment: Interpretive Data Percent cell count reference ranges are not reported, since discordance with absolute values may lead to misinterpretation of CBC data. Current Interpretive Data was last revised on 2017. Basophil pct 0.1 % [facility] Comment: Interpretive Data Percent cell count reference ranges are not reported, since discordance with absolute values may lead to misinterpretation of CBC data. Current Interpretive Data was last revised on 2017. Blood 06/08/2022 8:08 PM CDT 06/08/2022 8:30 PM CDT Catherine Adams MD LAB BLOOD ORDERABLES Final Result Performing Organization Address [facility] Co de Phone Number [facility] [place] [address] * (ABNORMAL) Blood gas, arterial (06/08/2022 8:08 PM CDT) pH, Art 7.44 7.35 - 7.45 [facility] PCO2, Arterial 36 35 - 45 mmHg [facility] PO2, Arterial 140(H) 83 - 108 mmHg [facility] HCO3 Art (Calculated) 25 20 - 30 mmol/L [facility] BE, art 0 mmol/L [facility] Comment: Interpretive Data No Reference Range Established Current Interpretive Data was last revised on 2017 O2 Sat Art (Measured) 99(H) 90 - 95 % [facility] Blood 06/08/2022 8:08 PM CDT 06/08/2022 8:15 PM CDT us Marcelina Lo COMMUNICATION SPECIALIST LAB BLOOD ORDERABLES Final Re sult Performing Organization Address [facility] [place] [address] * (ABNORMAL) Hemoglobin total, pulmonary artery (06/08/2022 8:08 PM CDT) Pathologist [facility] [place] Hemoglobin total, PA 8.7(L) 13.0 - 17.5 g/dL [facility] Blood 06/08/2022 8:08 PM CDT 06/08/2022 8:15 PM CDT Marcelina Lo COMMUNICATION SPECIALIST LAB BLOOD ORDERABLES Final Re sult Performing Organization Address City/[facility] Co de Phone Number [facility] [place] [address] * Oxyhemoglobin, pulmonary artery (06/08/2022 8:08 PM CDT) [facility] Oxyhemoglobin, PA 69.9 % [facility] Comment: Interpretive Data No reference range established. Current interpretive data was last revised 2019. Blood 06/08/2022 8:08 PM CDT 06/08/2022 8:15 PM CDT us Marcelina Lo COMMUNICATION SPECIALIST LAB BLOOD ORDERABLES Final Re sult [facility] Department [place] [address] * Respiratory pathogen panel Nasopharyngeal (06/08/2022 8:08 PM CDT) [facility] Influenza A RNA Not Detected Not Detected [facility] Influenza B RNA Not Detected Not Detected [facility] RSV RNA Not Detected Not Detected [facility] COVID-19 RNA Not Detected Not Detected [facility] Coronavirus 229E RNA Not Detected Not Detected [facility] Coronavirus HKU1 RNA Not Detected Not Detected [facility] Coronavirus NL63 RNA Not Detected Not Detected [facility] Coronavirus OC43 RNA Not Detected Not Detected [facility] Adenovirus DNA Not Detected Not Detected [facility] Metapneumovirus RNA Not Detected Not Detected [facility] Rhinovirus/Enterov irus RNA Not Detected Not Detected [facility] Parainfluenza 1 RNA Not Detected Not Detected [facility] Parainfluenza 2 RNA Not Detected Not Detected [facility] Parainfluenza 3 RNA Not Detected Not Detected [facility] Parainfluenza 4 RNA Not Detected Not Detected [facility] B. pertussis DNA Not Detected Not Detected [facility] B. parapertussis DNA Not Detected Not Detected [facility] C. pneumoniae DNA Not Detected Not Detected [facility] M. pneumoniae DNA Not Detected Not Detected [facility] Nasopharyngeal 06/08/2022 8: 08 PM CDT 06/08/2022 9:19 PM CDT Narrative [facility] - 06/08/2022 10:13 PM CDT Previously covid negative Is the Patient experiencing symptoms consistent with COVID?->Unknown Reason for testing?->Patient history unknown Surveillance testing for transplant patient?->No ??Interpretive Data The Spotie FilmArray Respiratory Panel (RP2.1) assay is a [...] assay has FDA clearance for testing of COMMUNICATION SPECIALIST swabs. ??The performance of additional specimen types has been assessed by the performing laboratory. ??The performance characteristics of this assay have been determined by [facility] Infectious Disease [facility]. Current interpretive data was last revised on 22. Catherine Adams MD LAB MICROBIOLOGY - GENERAL ORDERABLES Final Result Performing Organization Address City/[facility]/ZIP Co de Phone Number [facility] Department [place] [address] * Beta-hydroxybutyrate (06/08/2022 8:08 PM CDT) Pathologist [facility] [place] Beta-Hydroxybut yrate 0.3 0.0 - 0.5 mmol/L [facility] Blood 06/08/2022 8:08 PM CDT 06/08/2022 8:15 PM CDT Marcelina Lo NP LAB BLOOD ORDERABLES Final Re sult Performing Organization Address [facility] Co de Phone Number [facility] Department [place] [address] * (ABNORMAL) Lactate dehydrogenase (LD) (06/08/2022 8:08 PM CDT) Pathologist [facility] [place] Lactate dehydrogenase (LDH) 444(H) 100 - 250 Units/L [facility] Blood 06/08/2022 8:08 PM CDT 06/08/2022 8:31 PM CDT Catherine Adams MD LAB BLOOD ORDERABLES Final Result Performing Organization Address City/[facility] [place] [address] * (ABNORMAL) Comprehensive metabolic panel (06/08/2022 8:08 PM CDT) Pathologist [facility] [place] Sodium 136 135 - 145 mmol/L [facility] Potassium, pl 4.3 3.3 - 4.9 mmol/L [facility] Chloride 100 97 - 110 mmol/L [facility] CO2 27 22 - 32 mmol/L [facility] Anion gap 9 2 - 15 mmol/L [facility] BUN 42(H) 8 - 25 mg/dL [facility] Creatinine 4.73(H) 0.80 - 1.30 mg/dL [facility] Glucose 146 70 - 199 mg/dL [facility] Comment: Interpretive Data Fasting glucose [...] 2017. Calcium 8.4(L) 8.5 - 10.3 mg/dL [facility] Bilirubin, total 0.5 0.1 - 1.2 mg/dL [facility] Protein, pl 5.8(L) 6.5 - 8.5 g/dL [facility] Albumin 2.8(L) 3.5 - 5.0 g/dL [facility] Alk phos 153(H) 40 - 130 Units/L [facility] ALT 40 7 - 55 Units/L [facility] AST 137(H) 10 - 50 Units/L [facility] Blood 06/08/2022 8:08 PM CDT 06/08/2022 8:31 PM CDT us Conrad Weston Chi, MD LAB BLOOD ORDERABLES Ann Marie kramer Result [facility] Department [place] [address] * (ABNORMAL) CBC with auto differential (06/08/2022 8:08 PM CDT) WBC 9.3 3.8 - 9.9 K/cumm [facility] Hgb 6.9(L) 13.0 - 17.5 g/dL [facility] Hct 19.9(L) 38.9 - 50.3 % [facility] Plt 207 150 - 400 K/cumm [facility] MPV 11.2 9.1 - 12.3 fL [facility] RBC 2.20(L) 4.30 - 5.80 M/cumm [facility] MCV 90.5 81.3 - 96.4 fL [facility] MCH 31.4 27.1 - 33.3 pg [facility] MCHC 34.7 32.3 - 35.7 g/dL [facility] RDW CV 13.5 11.1 - 14.9 % [facility] RDW SD 44.4 35.7 - 48.1 fL [facility] NRBC abs 0.00 0.00 - 0.01 K/cumm [facility] Blood 06/08/2022 8:08 PM CDT 06/08/2022 8:30 PM CDT us Marcelina Lo NP LAB BLOOD ORDERABLES Final Re sult [facility] Department [place] [address] * POCT glucose (06/08/2022 8:04 PM CDT) Glucose, POC 153 70 - 199 mg/dL [facility] Blood 06/08/2022 8:04 PM CDT 06/08/2022 8:04 PM CDT Catherine Adams MD LAB POCT ORDERABLES - DEVIC E Final Result [facility] Department [place] [address] * POCT glucose (06/08/2022 8:03 PM CDT) Glucose, POC 162 70 - 199 mg/dL [facility] Blood 06/08/2022 8:03 PM CDT 06/08/2022 8:03 PM CDT Catherine Adams MD LAB POCT ORDERABLES - DEVIC E Final Result Performing Organization Address [facility] Co de Phone Number [facility] [place] [address] * POCT glucose (06/08/2022 4:20 PM CDT) Glucose, POC 135 70 - 199 mg/dL [facility] Blood 06/08/2022 4:20 PM CDT 06/08/2022 4:20 PM CDT Catherine Adams MD LAB POCT ORDERABLES - DEVIC E Final Result Performing Organization Address [facility] de Phone Number [facility] Department [place] [address] * Lactate, whole blood (06/08/2022 4:20 PM CDT) Lactate, bld 1.2 0.7 - 2.0 mmol/L [facility] Blood 06/08/2022 4:20 PM CDT 06/08/2022 4:44 PM CDT Marcelina Lo NP LAB BLOOD ORDERABLES Final Re sult Performing Organization Address [facility] Co de Phone Number [facility] [place] [address] * (ABNORMAL) aPTT (06/08/2022 4:20 PM CDT) aPTT 25(L) 27 - 37 sec [facility] Comment: Interpretive Data Therapeutic heparin range: 60.0 - 94.0 seconds. Based on correlation with therapeutic heparin activity range of 0.3-0.7 Units/mL. Current interpretive data was last revised on 2020. Blood 06/08/2022 4:20 PM CDT 06/08/2022 4:56 PM CDT Narrative [facility] - 06/08/2022 5:12 PM CDT Draw [...] Ann Marie l Result Performing Organization Address City/[facility]/ZIP Co de Phone Number [facility] Department [place] [address] * (ABNORMAL) Hemoglobin total, pulmonary artery (06/08/2022 4:20 PM CDT) Hemoglobin total, PA 8.4(L) 13.0 - 17.5 g/dL [facility] Blood 06/08/2022 4:20 PM CDT 06/08/2022 4:44 PM CDT Marcelina Lo NP LAB BLOOD ORDERABLES Final Re sult Performing Organization Address [facility] Co de Phone Number [facility] [place] [address] * (ABNORMAL) Blood gas, arterial (06/08/2022 4:20 PM CDT) pH, Art 7.44 7.35 - 7.45 [facility] PCO2, Arterial 36 35 - 45 mmHg [facility] PO2, Arterial 156(H) 83 - 108 mmHg [facility] HCO3 Art (Calculated) 25 20 - 30 mmol/L [facility] BE, art 0 mmol/L [facility] Comment: Interpretive Data No Reference Range Established Current Interpretive Data was last revised on 2017 O2 Sat Art (Measured) 98(H) 90 - 95 % [facility] Blood 06/08/2022 4:20 PM CDT 06/08/2022 4:44 PM CDT Marcelina Lo COMMUNICATION SPECIALIST LAB BLOOD ORDERABLES Final Re sult Performing Organization Address [facility] Co de Phone Number [facility] [place] [address] * Oxyhemoglobin, pulmonary artery (06/08/2022 4:20 PM CDT) Oxyhemoglobin, PA 63.1 % [facility] Comment: Interpretive Data No reference range established. Current interpretive data was last revised 2019. Blood 06/08/2022 4:20 PM CDT 06/08/2022 4:44 PM CDT Marcelina Lo COMMUNICATION SPECIALIST LAB BLOOD ORDERABLES Final Re sult Performing Organization Address [facility] de Phone Number [facility] [place] [address] * TRANSTHORACIC ECHO (TTE) COMPLETE W DOPPLER/CF W CONTRAST (06/08/2022 2:50 PM CDT) LV EF 56 % CARDIOREPORT Anatomical Region Laterality Modality Ultrasound 06/08/2022 12:3 0 PM CDT Narrative 06/08/2022 4:00 PM CDT Patient name: Adelia Garvin Date of test: 06/08/2022 Type of test: TTE w/Doppler Hospital #: 0 Date of : 1970 (M) Clinical Laboratory Manager: Elli Larsen RDCS Referring Physician: CATHERINE ADAMS MD Contrast Agent: Contrast Administered by: Supervised/Interpreted by: Bladomero Foster MD Diagnosis: Location: [facility] Reason for test: HF with impella MV [...] 2=Hypo 3=Akinetic 4=Dyskin./Aneurysm 0=Not visualized) Parasternal [place]:MAS=2 BAS=1 MIL=1 IVETH=1 Parasternal [place]:MAS=2 MIS=1 VA=1 MIL=1 MAL=2 MA=1 Apical 4 Chambers:=1 MIS=1 BIS=1 BAL=1 MAL=2 AL=2 AC=2 Apical 2 Chambers:AI=1 VA=1 BI=1 BA=1 MA=1 AA=1 AC=2 LV Global [...] in anterior wall and anterior septem sugegsting CAD/VA in the LAD territory. LVEF ??is in [...] MD By signing this report, the attending landscaping specialist certifies that he or she has personally supervised and interpreted the echocardiogram and has reviewed and or edited and agrees with the written comments contained within the report. Procedure Note Baldomero Foster MD - 06/08/2022 Patient name: Adelia Garvin Date of test: 06/08/2022 Type of test: TTE w/Doppler Hospital #: 0 Date of : 1970 (M) Clinical Laboratory Manager: Elli Larsen RDCS Referring Physician: CATHERINE ADAMS MD Contrast Agent: Contrast Administered by: Supervised/Interpreted by: Baldomero Foster MD Diagnosis: Location: [facility] Reason for test: HF with impella MV [...] 2=Hypo 3=Akinetic 4=Dyskin./Aneurysm 0=Not visualized) Parasternal [place]:MAS=2 BAS=1 MIL=1 IVETH=1 Parasternal [place]:MAS=2 MIS=1 VA=1 MIL=1 MAL=2 MA=1 Apical 4 Chambers:=1 MIS=1 BIS=1 BAL=1 MAL=2 AL=2 AC=2 Apical 2 Chambers:AI=1 VA=1 BI=1 BA=1 MA=1 AA=1 AC=2 LV Global [...] in anterior wall and anterior septem sugegsting CAD/VA in the LAD territory. LVEF is in [...] MD By signing this report, the attending landscaping specialist certifies that he or she has personally supervised and interpreted the echocardiogram and has reviewed and or edited and agrees with the written comments contained within the report. us Cathernie Adams MD CV ECHO PROCEDURES Final Re [...] vena cava. There is an inferior approach [place]iv catheter with tip overlying the right main pulmonary artery. An Impella device is present. A gastric tube courses below the inferior margin of the study. The inferior mediastinum and the entire left hemidiaphragm are excluded from the [id number]. The imaged cardiomediastinal silhouette appears stable. There [...] vena cava. There is an inferior approach [place] catheter with tip overlying the right main pulmonary artery. An Impella device is present. A gastric tube courses below the inferior margin of the study. The inferior mediastinum and the entire left hemidiaphragm are excluded from the [id number]. The imaged cardiomediastinal silhouette appears stable. There [...] Potassium, whole blood (06/08/2022 11:49 AM CDT) [facility] Potassium, bld 4.1 3.3 - 4.9 mmol/L [facility] Blood 06/08/2022 11:4 9 AM CDT 06/08/2022 12:18 PM CDT Marcelina Lo COMMUNICATION SPECIALIST LAB BLOOD ORDERABLES Final Re sult Performing Organization Address City/[facility]/ZIP Co de Phone Number [facility] Department [place] [employer] [address] * (ABNORMAL) Hemoglobin total, pulmonary artery (06/08/2022 11:49 AM CDT) [facility] Hemoglobin total, PA 8.4(L) 13.0 - 17.5 g/dL [facility] Blood 06/08/2022 11:4 9 AM CDT 06/08/2022 12:18 PM CDT Marcelina Lo COMMUNICATION SPECIALIST LAB BLOOD ORDERABLES Final Re sult [facility] Department [place] [address] * Oxyhemoglobin, pulmonary artery (06/08/2022 11:49 AM CDT) Oxyhemoglobin, PA 63.8 % [facility] Comment: Interpretive Data No reference range established. Current interpretive data was last revised 2019. Blood 06/08/2022 11:4 9 AM CDT 06/08/2022 12:18 PM CDT Marcelina Lo COMMUNICATION SPECIALIST LAB BLOOD ORDERABLES Final Re sult Performing Organization Address City/[facility] Co de Phone Number [facility] Department [place] [address] * POCT glucose (06/08/2022 11:46 AM CDT) Pathologist [facility] [place] Glucose, POC 140 70 - 199 mg/dL [facility] Blood 06/08/2022 11:4 6 AM CDT 06/08/2022 11:46 AM CDT Catherine Adams MD LAB POCT ORDERABLES - DEVIC E Final Result Performing Organization Address [facility] de Phone Number [facility] Department [place] [address] * (ABNORMAL) Blood gas, arterial (06/08/2022 10:44 AM CDT) Pathologist [facility] [place] pH, Art 7.44 7.35 - 7.45 [facility] PCO2, Arterial 34(L) 35 - 45 mmHg [facility] PO2, Arterial 108 83 - 108 mmHg [facility] HCO3 Art (Calculated) 24 20 - 30 mmol/L [facility] BE, art 0 mmol/L [facility] Comment: Interpretive Data No Reference Range Established Current Interpretive Data was last revised on 2017 O2 Sat Art (Measured) 98(H) 90 - 95 % [facility] Blood 06/08/2022 10:4 4 AM CDT 06/08/2022 10:58 AM CDT us Marcelina Lo COMMUNICATION SPECIALIST LAB BLOOD ORDERABLES Final Re sult Performing Organization Address City/[facility] Co de Phone Number [facility] [place] [employer] [address] * POCT glucose (06/08/2022 8:31 AM CDT) Glucose, POC 160 70 - 199 mg/dL [facility] Blood 06/08/2022 8:31 AM CDT 06/08/2022 8:31 AM CDT Catherine Adams MD LAB POCT ORDERABLES - DEVIC E Final Result Performing Organization Address [facility] [place] [address] * (ABNORMAL) Blood gas, arterial (06/08/2022 7:57 AM CDT) Pathologist [facility] [place] pH, Art 7.40 7.35 - 7.45 [facility] PCO2, Arterial 38 35 - 45 mmHg [facility] PO2, Arterial 99 83 - 108 mmHg [facility] HCO3 Art (Calculated) 25 20 - 30 mmol/L [facility] BE, art 0 mmol/L [facility] Comment: Interpretive Data No Reference Range Established Current Interpretive Data was last revised on 2017 O2 Sat Art (Measured) 97(H) 90 - 95 % [facility] Blood 06/08/2022 7:57 AM CDT 06/08/2022 8:22 AM CDT Marcelina Lo COMMUNICATION SPECIALIST LAB BLOOD ORDERABLES Final Re sult Performing Organization Address [facility] Co de Phone Number [facility] [employer] [place] [address] * (ABNORMAL) Hemoglobin total, pulmonary artery (06/08/2022 7:57 AM CDT) Hemoglobin total, PA 8.8(L) 13.0 - 17.5 g/dL [facility] Blood 06/08/2022 7:57 AM CDT 06/08/2022 8:22 AM CDT Marcelina Lo COMMUNICATION SPECIALIST LAB BLOOD ORDERABLES Final Re sult Performing Organization Address [facility] Co de Phone Number [facility] [place] [address] * Oxyhemoglobin, pulmonary artery (06/08/2022 7:57 AM CDT) Oxyhemoglobin, PA 65.7 % [facility] Comment: Interpretive Data No reference range established. Current interpretive data was last revised 2019. Blood 06/08/2022 7:57 AM CDT 06/08/2022 8:22 AM CDT Marcelina Lo COMMUNICATION SPECIALIST LAB BLOOD ORDERABLES Final Re sult Performing Organization Address [facility] [place] [address] * X-ray chest 1 view - Portable [...] Impella device. There is an inferior approach [place] catheter with tip overlying the proximal right [...] Impella device. There is an inferior approach [place] catheter with tip overlying the proximal right [...] Glucose, POC 157 70 - 199 mg/dL [facility] Blood 06/08/2022 6:29 AM CDT 06/08/2022 6:29 AM CDT Catherine Adams MD LAB POCT ORDERABLES - DEVIC E Final Result Performing Organization Address City/[facility] Co de Phone Number [facility] Department [place] [employer] [place] [address] * POCT glucose (06/08/2022 5:26 AM CDT) Glucose, POC 121 70 - 199 mg/dL [facility] Blood 06/08/2022 5:26 AM CDT 06/08/2022 5:26 AM CDT Catherine Adams MD LAB POCT ORDERABLES - DEVIC E Final Result Performing Organization Address [facility] Co de Phone Number [facility] [place] [address] * POCT glucose (06/08/2022 4:16 AM CDT) Glucose, POC 111 70 - 199 mg/dL [facility] Blood 06/08/2022 4:16 AM CDT 06/08/2022 4:16 AM CDT Catherine Adams MD LAB POCT ORDERABLES - DEVIC E Final Result Performing Organization Address City/[facility] Co de Phone Number [facility] [employer] [place] [address] * (ABNORMAL) eGFR (06/08/2022 4:12 AM CDT) eGFR 8(L) 90 - 130 mL/min/1. 73 m2 [facility] Comment: Interpretive Data Reference Interval Normal [...] City/State/[facility] Co de Phone Number [facility] Department [place] [address] * (ABNORMAL) Hemoglobin total, pulmonary artery (06/08/2022 4:12 AM CDT) Hemoglobin total, PA 8.6(L) 13.0 - 17.5 g/dL [facility] Blood 06/08/2022 4:12 AM CDT 06/08/2022 4:30 AM CDT us Marcelina Lo COMMUNICATION SPECIALIST LAB BLOOD ORDERABLES Final Re sult [facility] [place] [address] * (ABNORMAL) Blood gas, arterial (06/08/2022 4:12 AM CDT) Pathologist [facility] [place] pH, Art 7.41 7.35 - 7.45 [facility] PCO2, Arterial 37 35 - 45 mmHg [facility] PO2, Arterial 57(L) 83 - 108 mmHg [facility] HCO3 Art (Calculated) 24 20 - 30 mmol/L [facility] BE, art -1 mmol/L [facility] Comment: Interpretive Data No Reference Range Established Current Interpretive Data was last revised on 2017 O2 Sat Art (Measured) 88(L) 90 - 95 % [facility] Blood 06/08/2022 4:12 AM CDT 06/08/2022 4:30 AM CDT us Marcelina Lo COMMUNICATION SPECIALIST LAB BLOOD ORDERABLES Final Re sult Performing Organization Address [facility]/[place] [address] * Oxyhemoglobin, pulmonary artery (06/08/2022 4:12 AM CDT) Pathologist [facility] [place] Oxyhemoglobin, PA 66.9 % [facility] Comment: Interpretive Data No reference range established. Current interpretive data was last revised 2019. Blood 06/08/2022 4:12 AM CDT 06/08/2022 4:30 AM CDT Marcelina Lo COMMUNICATION SPECIALIST LAB BLOOD ORDERABLES Final Re sult [facility] [place] [address] * Magnesium (06/08/2022 4:12 AM CDT) Magnesium 2.3 1.4 - 2.5 mg/dL [facility] Blood 06/08/2022 4:12 AM CDT 06/08/2022 4:38 AM CDT Catherine Adams MD LAB BLOOD ORDERABLES Final Result [facility] Department [place] [address] * (ABNORMAL) Basic metabolic panel (06/08/2022 4:12 AM CDT) [facility] Sodium 135 135 - 145 mmol/L [facility] Potassium, pl 4.0 3.3 - 4.9 mmol/L [facility] Chloride 99 97 - 110 mmol/L [facility] CO2 26 22 - 32 mmol/L [facility] Anion gap 10 2 - 15 mmol/L [facility] BUN 67(H) 8 - 25 mg/dL [facility] Creatinine 7.65(H) 0.80 - 1.30 mg/dL [facility] Glucose 109 70 - 199 mg/dL [facility] Comment: Interpretive Data Fasting glucose [...] 2017. Calcium 8.2(L) 8.5 - 10.3 mg/dL [facility] Blood 06/08/2022 4:12 AM CDT 06/08/2022 4:38 AM CDT Catherine Adams MD LAB BLOOD ORDERABLES Final Result [facility] Department [place] [address] * POCT glucose (06/08/2022 3:00 AM CDT) Glucose, POC 135 70 - 199 mg/dL [facility] Blood 06/08/2022 3:00 AM CDT 06/08/2022 3:00 AM CDT Catherine Adams MD LAB POCT ORDERABLES - DEVIC E Final Result [facility] Department [place] [address] * (ABNORMAL) Differential, auto (06/08/2022 2:14 AM CDT) Pathologist [facility] [place] Neutrophil abs 8.2(H) 1.7 - 6.5 K/cumm [facility] Imm gran abs 0.4(H) 0.0 - 0.1 K/cumm [facility] Lymphocyte abs 0.5(L) 0.8 - 3.3 K/cumm [facility] Monocyte abs 1.0(H) 0.2 - 0.8 K/cumm [facility] Eosinophil abs 0.0 0.0 - 0.5 K/cumm [facility] Basophil abs 0.0 0.0 - 0.1 K/cumm [facility] Neutrophil pct 81.0 % [facility] Comment: Interpretive Data Percent cell count reference ranges are not reported, since discordance with absolute values may lead to misinterpretation of CBC data. Current Interpretive Data was last revised on 2017. Imm gran pct 3.8 % [facility] Comment: Interpretive Data Percent cell count reference ranges are not reported, since discordance with absolute values may lead to misinterpretation of CBC data. Current Interpretive Data was last revised on 2017. Lymphocyte pct 5.0 % [facility] Comment: Interpretive Data Percent cell count reference ranges are not reported, since discordance with absolute values may lead to misinterpretation of CBC data. Current Interpretive Data was last revised on 2017. Monocyte pct 10.1 % [facility] Comment: Interpretive Data Percent cell count reference ranges are not reported, since discordance with absolute values may lead to misinterpretation of CBC data. Current Interpretive Data was last revised on 2017. Eosinophil pct 0.0 % [facility] Comment: Interpretive Data Percent cell count reference ranges are not reported, since discordance with absolute values may lead to misinterpretation of CBC data. Current Interpretive Data was last revised on 2017. Basophil pct 0.1 % [facility] Comment: Interpretive Data Percent cell count reference ranges are not reported, since discordance with absolute values may lead to misinterpretation of CBC data. Current Interpretive Data was last revised on 2017. Blood 06/08/2022 2:14 AM CDT 06/08/2022 4:38 AM CDT Catherine Adams MD LAB BLOOD ORDERABLES Final Result Performing Organization Address City/[facility]/ZIP Co de Phone Number [facility] Department [place] [address] * POCT glucose (06/08/2022 2:14 AM CDT) Glucose, POC 141 70 - 199 mg/dL [facility] Blood 06/08/2022 2:14 AM CDT 06/08/2022 2:14 AM CDT Catherine Adams MD LAB POCT ORDERABLES - DEVIC E Final Result [facility] Department [place] [address] * Potassium, whole blood (06/08/2022 2:14 AM CDT) Potassium, bld 4.0 3.3 - 4.9 mmol/L [facility] Blood 06/08/2022 2:14 AM CDT 06/08/2022 2:22 AM CDT Marcelina Lo COMMUNICATION SPECIALIST LAB BLOOD ORDERABLES Final Re sult Performing Organization Address City/[facility] Co de Phone Number [facility] Department [place] [address] * (ABNORMAL) Blood gas, arterial (06/08/2022 2:14 AM CDT) [facility] pH, Art 7.45 7.35 - 7.45 [facility] PCO2, Arterial 33(L) 35 - 45 mmHg [facility] PO2, Arterial 180(H) 83 - 108 mmHg [facility] HCO3 Art (Calculated) 24 20 - 30 mmol/L [facility] BE, art -1 mmol/L [facility] Comment: Interpretive Data No Reference Range Established Current Interpretive Data was last revised on 2017 O2 Sat Art (Measured) 98(H) 90 - 95 % [facility] Blood 06/08/2022 2:14 AM CDT 06/08/2022 2:22 AM CDT Marcelina Lo COMMUNICATION SPECIALIST LAB BLOOD ORDERABLES Final Re sult Performing Organization Address [facility] Co de Phone Number [facility] Department [place] [address] * (ABNORMAL) CBC with auto differential (06/08/2022 2:14 AM CDT) [facility] WBC 10.1(H) 3.8 - 9.9 K/cumm [facility] Hgb 8.3(L) 13.0 - 17.5 g/dL [facility] Hct 23.1(L) 38.9 - 50.3 % [facility] Plt 218 150 - 400 K/cumm [facility] MPV 11.1 9.1 - 12.3 fL [facility] RBC 2.60(L) 4.30 - 5.80 M/cumm [facility] MCV 88.8 81.3 - 96.4 fL [facility] MCH 31.9 27.1 - 33.3 pg [facility] MCHC 35.9(H) 32.3 - 35.7 g/dL [facility] RDW CV 13.3 11.1 - 14.9 % [facility] RDW SD 43.1 35.7 - 48.1 fL [facility] NRBC abs 0.00 0.00 - 0.01 K/cumm [facility] Blood 06/08/2022 2:14 AM CDT 06/08/2022 4:38 AM CDT us Marcelina Lo COMMUNICATION SPECIALIST LAB BLOOD ORDERABLES Final Re sult Performing Organization Address City/[facility]/ZIP Co de Phone Number [facility] Department [place] [address] * POCT glucose (06/08/2022 1:13 AM CDT) Glucose, POC 151 70 - 199 mg/dL [facility] Blood 06/08/2022 1:13 AM CDT 06/08/2022 1:13 AM CDT us Catherine Adams MD LAB POCT ORDERABLES - DEVIC E Final Result Performing Organization Address City/[facility]/ZIP Co de Phone Number [facility] Department [place] [address] * (ABNORMAL) Blood gas, arterial (06/08/2022 12:30 AM CDT) pH, Art 7.50(H) 7.35 - 7.45 [facility] PCO2, Arterial 28(L) 35 - 45 mmHg [facility] PO2, Arterial 144(H) 83 - 108 mmHg [facility] HCO3 Art (Calculated) 22 20 - 30 mmol/L [facility] BE, art 0 mmol/L [facility] Comment: Interpretive Data No Reference Range Established Current Interpretive Data was last revised on 2017 O2 Sat Art (Measured) 98(H) 90 - 95 % [facility] Blood 06/08/2022 12:3 0 AM CDT 06/08/2022 12:39 AM CDT us Marcelina Lo NP LAB BLOOD ORDERABLES Final Re sult [facility] Department [place] [address] * (ABNORMAL) eGFR (06/08/2022 12:28 AM CDT) eGFR 7(L) 90 - 130 mL/min/1. 73 m2 [facility] Comment: Interpretive Data Reference Interval Normal [...] BLOOD ORDERABLES Final Result Performing Organization Address [facility] Co de Phone Number [facility] [place] [address] * (ABNORMAL) Hemoglobin total, pulmonary artery (06/08/2022 12:28 AM CDT) Hemoglobin total, PA 9.0(L) 13.0 - 17.5 g/dL [facility] Blood 06/08/2022 12:2 8 AM CDT 06/08/2022 12:39 AM CDT us Marcelina Lo COMMUNICATION SPECIALIST LAB BLOOD ORDERABLES Final Re sult Performing Organization Address [facility] Co de Phone Number [facility] [place] [address] * Oxyhemoglobin, pulmonary artery (06/08/2022 12:28 AM CDT) Oxyhemoglobin, PA 59.2 % [facility] Comment: Interpretive Data No reference range established. Current interpretive data was last revised 2019. Blood 06/08/2022 12:2 8 AM CDT 06/08/2022 12:39 AM CDT us Marcelina Lo COMMUNICATION SPECIALIST LAB BLOOD ORDERABLES Final Re sult Performing Organization Address [facility] Co de Phone Number [facility] [place] [address] * Potassium, whole blood (06/08/2022 12:28 AM CDT) Potassium, bld 3.5 3.3 - 4.9 mmol/L [facility] Blood 06/08/2022 12:2 8 AM CDT 06/08/2022 12:39 AM CDT Catherine Adams MD LAB BLOOD ORDERABLES Final Result Performing Organization Address City/[facility]/ZIP Co de Phone Number [facility] [place] [address] * Magnesium (06/08/2022 12:28 AM CDT) [facility] Magnesium 2.2 1.4 - 2.5 mg/dL [facility] Blood 06/08/2022 12:2 8 AM CDT 06/08/2022 12:42 AM CDT Catherine Adams MD LAB BLOOD ORDERABLES Final Result Performing Organization Address [facility] Co de Phone Number [facility] Department [place] [address] * Beta-hydroxybutyrate (06/08/2022 12:28 AM CDT) [facility] Beta-Hydroxybut yrate 0.1 0.0 - 0.5 mmol/L [facility] Blood 06/08/2022 12:2 8 AM CDT 06/08/2022 12:39 AM CDT Catherine Adams MD LAB BLOOD ORDERABLES Edited Result - Final Performing Organization Address [facility] Co de Phone Number [facility] Department [place] [address] * (ABNORMAL) Basic metabolic panel (06/08/2022 12:28 AM CDT) [facility] Sodium 135 135 - 145 mmol/L [facility] Potassium, pl 3.5 3.3 - 4.9 mmol/L [facility] Chloride 96(L) 97 - 110 mmol/L [facility] CO2 23 22 - 32 mmol/L [facility] Anion gap 16(H) 2 - 15 mmol/L [facility] BUN 69(H) 8 - 25 mg/dL [facility] Creatinine 8.46(H) 0.80 - 1.30 mg/dL [facility] Glucose 147 70 - 199 mg/dL [facility] Comment: Interpretive Data Fasting glucose [...] 2017. Calcium 7.8(L) 8.5 - 10.3 mg/dL [facility] Blood 06/08/2022 12:2 8 AM CDT 06/08/2022 12:42 AM CDT Catherine Adams MD LAB BLOOD ORDERABLES Final Result Performing Organization Address [facility] Co de Phone Number [facility] Department [place] [address] * POCT glucose (06/08/2022 12:09 AM CDT) Glucose, POC 169 70 - 199 mg/dL [facility] Blood 06/08/2022 12:0 9 AM CDT 06/08/2022 12:09 AM CDT Catherine Adams MD LAB POCT ORDERABLES - DEVIC E Final Result Performing Organization Address [facility] Co de Phone Number [facility] Department [place] [address] * (ABNORMAL) eGFR (06/07/2022 10:58 PM CDT) eGFR 7(L) 90 - 130 mL/min/1. 73 m2 [facility] Comment: Interpretive Data Reference Interval Normal [...] BLOOD ORDERABLES Final Result Performing Organization Address [facility] Co de Phone Number [facility] Department [place] [address] * (ABNORMAL) POCT glucose (06/07/2022 10:58 PM CDT) Glucose, POC 211(H) 70 - 199 mg/dL [facility] Blood 06/07/2022 10:5 8 PM CDT 06/07/2022 10:58 PM CDT Catherine Adams MD LAB POCT ORDERABLES - DEVIC E Final Result Performing Organization Address City/[facility] Co de Phone Number [facility] [place] [address] * Lactate, whole blood (06/07/2022 10:58 PM CDT) Pathologist [facility] [place] Lactate, bld 1.8 0.7 - 2.0 mmol/L [facility] Blood 06/07/2022 10:5 8 PM CDT 06/07/2022 11:05 PM CDT Catherine Adams MD LAB BLOOD [place]AB[place] [address] * Potassium, whole blood (06/07/2022 10:58 PM CDT) [facility] Potassium, bld 3.4 3.3 - 4.9 mmol/L [facility] Blood 06/07/2022 10:5 8 PM CDT 06/07/2022 11:05 PM CDT Catherine Adams MD LAB BLOOD ORDERABLES Final Result Performing Organization Address City/[facility] [place] [address] * (ABNORMAL) Phosphorus (06/07/2022 10:58 PM CDT) [facility] Phosphorus, pl 4.7(H) 2.3 - 4.5 mg/dL [facility] Comment:Reviewed Blood 06/07/2022 10:5 8 PM CDT 06/07/2022 11:20 PM CDT Result [facility] Catherine Adams MD LAB BLOOD ORDERABLES Final Result Performing Organization Address City/[facility]/ZIP Co de Phone Number [facility] [place] [address] * Magnesium (06/07/2022 10:58 PM CDT) [facility] Magnesium 2.2 1.4 - 2.5 mg/dL [facility] Blood 06/07/2022 10:5 8 PM CDT 06/07/2022 11:20 PM CDT Catherine Adams MD LAB BLOOD ORDERABLES Final Result [facility] Department [place] [address] * Beta-hydroxybutyrate (06/07/2022 10:58 PM CDT) [facility] Beta-Hydroxybut yrate 0.1 0.0 - 0.5 mmol/L [facility] Blood 06/07/2022 10:5 8 PM CDT 06/07/2022 11:05 PM CDT Catherine Adams MD LAB BLOOD ORDERABLES Final Result Performing Organization Address City/[facility] Co de Phone Number [facility] [place] [address] * (ABNORMAL) Basic metabolic panel (06/07/2022 10:58 PM CDT) [facility] Sodium 134(L) 135 - 145 mmol/L [facility] Potassium, pl 3.4 3.3 - 4.9 mmol/L [facility] Chloride 95(L) 97 - 110 mmol/L [facility] CO2 23 22 - 32 mmol/L [facility] Anion gap 16(H) 2 - 15 mmol/L [facility] BUN 75(H) 8 - 25 mg/dL [facility] Creatinine 8.92(H) 0.80 - 1.30 mg/dL [facility] Glucose 187 70 - 199 mg/dL [facility] Comment: Interpretive Data Fasting glucose [...] 2017. Calcium 8.1(L) 8.5 - 10.3 mg/dL [facility] Blood 06/07/2022 10:5 8 PM CDT 06/07/2022 11:20 PM CDT us Catherine Adams MD LAB BLOOD ORDERABLES Final Result Performing Organization Address [facility] de Phone Number [facility] Department [place] [address] * (ABNORMAL) Blood gas, arterial (06/07/2022 10:58 PM CDT) pH, Art 7.46(H) 7.35 - 7.45 [facility] PCO2, Arterial 31(L) 35 - 45 mmHg [facility] PO2, Arterial 73(L) 83 - 108 mmHg [facility] HCO3 Art (Calculated) 22 20 - 30 mmol/L [facility] BE, art -2 mmol/L [facility] Comment: Interpretive Data No Reference Range Established Current Interpretive Data was last revised on 2017 O2 Sat Art (Measured) 95 90 - 95 % [facility] Blood 06/07/2022 10:5 8 PM CDT 06/07/2022 11:05 PM CDT us Marcelina Lo NP LAB BLOOD ORDERABLES Final Re sult Performing Organization Address [facility] Co de Phone Number [facility] Department [place] [address] * NM ARTL CATHJ/CANNULJ MNTR/TRANSFUSION SPX PRQ (06/07/2022 10:17 PM CDT) Narrative Eric Reed MD - 06/07/2022 10:17 PM CDT Lavern Morrison MD ? 06/07/2022 10:29 PM Arterial Line Insertion Date/Time: 06/07/2022 10:17 PM Performed by: Lavern Morrison MD Authorized by: Lavern Morrison MD [place] Protocol: RN Notified of Procedure: yes ?? [...] Glucose, POC 249(H) 70 - 199 mg/dL [facility] Blood 06/07/2022 9:58 PM CDT 06/07/2022 9:58 PM CDT Catherine Adams MD LAB POCT ORDERABLES - DEVIC E Final Result [facility] One [facility] Department [place] [address] * XR Abdomen Ap 1 Vw (06/07/2022 [...] Electronically signed by: Félix Chahal M.D. Result [facility] Catherine Adams MD IMG XR PROCEDURES Final Res ult * Reticulocyte Count (06/07/2022 8:54 PM CDT) [facility] Retics, absolute 0.052 0.020 - 0.087 M/cumm [facility] Retics 2.2 0.4 - 2.9 % [facility] Reticulocyte Hgb 31.7 30.5 - 38.0 pg [facility] Blood 06/07/2022 8:54 PM CDT 06/07/2022 9:52 PM CDT Result [facility] Catherine Adams MD LAB BLOOD ORDERABLES Final Result Performing Organization Address [facility]/ZIP Co de Phone Number [facility] [place] [address] * (ABNORMAL) Hemoglobin and hematocrit (06/07/2022 8:54 PM CDT) [facility] Hgb 7.5(L) 13.0 - 17.5 g/dL [facility] Comment:Hemoglobin delta due to apparent blood transfusion. Hct 20.9(L) 38.9 - 50.3 % [facility] Blood 06/07/2022 8:54 PM CDT 06/07/2022 9:47 PM CDT Result [facility] Catherine Adams MD LAB BLOOD ORDERABLES Final Result Performing Organization Address City/[facility]/ZIP Co de Phone Number [facility] Department [place] [employer] [place] [address] * (ABNORMAL) POCT glucose (06/07/2022 8:50 PM CDT) Glucose, POC 304(H) 70 - 199 mg/dL [facility] Blood 06/07/2022 8:50 PM CDT 06/07/2022 8:50 PM CDT Catherine Adams MD LAB POCT ORDERABLES - DEVIC E Final Result [facility] [place] [address] * (ABNORMAL) Haptoglobin (06/07/2022 8:00 PM CDT) [facility] Haptoglobin 312.0(H) 30.0 - 200.0 mg/dL [facility] Blood 06/07/2022 8:00 PM CDT 06/07/2022 8:26 PM CDT Catherine Adams MD LAB BLOOD ORDERABLES Final Result Performing Organization Address City/[facility] Co de Phone Number [facility] Department [place] [address] * (ABNORMAL) Lactate dehydrogenase (LD) (06/07/2022 8:00 PM CDT) [facility] Lactate dehydrogenase (LDH) 335(H) 100 - 250 Units/L [facility] Blood 06/07/2022 8:00 PM CDT 06/07/2022 8:26 PM CDT Catherine Adams MD LAB BLOOD ORDERABLES Final Result Performing Organization Address City/[facility] Co de Phone Number [facility] Department [place] [address] * (ABNORMAL) Ferritin (06/07/2022 8:00 PM CDT) Ferritin 2,062(H) 30 - 400 ng/mL [facility] Blood 06/07/2022 8:00 PM CDT 06/07/2022 8:26 PM CDT Catherine Adams MD LAB BLOOD ORDERABLES Final Result [facility] [place] [address] * (ABNORMAL) Iron profile w/ IBC (06/07/2022 8:00 PM CDT) [facility] Iron 50 50 - 150 mcg/dL [facility] TIBC 130(L) 250 - 400 mcg/dL [facility] Transferrin saturation 38 20 - 50 % [facility] Blood 06/07/2022 8:00 PM CDT 06/07/2022 8:26 PM CDT Catherine Adams MD LAB BLOOD ORDERABLES Final Result [facility] [place] [address] * Folate (06/07/2022 8:00 PM CDT) [facility] Folic acid 8.7 >=5.0 ng/mL [facility] Blood 06/07/2022 8:00 PM CDT 06/07/2022 8:26 PM CDT Catherine Adams MD LAB BLOOD [place] [address] * Vitamin B12 (06/07/2022 8:00 PM CDT) [facility] Vitamin B12 373 230 - 1,250 pg/mL [facility] Blood 06/07/2022 8:00 PM CDT 06/07/2022 8:26 PM CDT Catherine Adams MD LAB BLOOD ORDERABLES Final Result Performing Organization Address [facility] Co de Phone Number [facility] [place] [address] * Oxyhemoglobin, pulmonary artery (06/07/2022 7:57 PM CDT) Oxyhemoglobin, PA 57.3 % [facility] Comment: Interpretive Data No reference range established. Current interpretive data was last revised 2019. Blood 06/07/2022 7:57 PM CDT 06/07/2022 8:09 PM CDT Result [facility] Marcelina Lo COMMUNICATION SPECIALIST LAB BLOOD ORDERABLES Final Re sult Performing Organization Address [facility] Co de Phone Number [facility] [place] [address] * (ABNORMAL) Hemoglobin total, pulmonary artery (06/07/2022 7:57 PM CDT) Hemoglobin total, PA 8.7(L) 13.0 - 17.5 g/dL [facility] Blood 06/07/2022 7:57 PM CDT 06/07/2022 8:09 PM CDT Result [facility] Marcelina Lo COMMUNICATION SPECIALIST LAB BLOOD ORDERABLES Final Re sult Performing Organization Address [facility] Co de Phone Number [facility] [place] [address] * (ABNORMAL) aPTT (06/07/2022 7:57 PM CDT) aPTT 44(H) 27 - 37 sec [facility] Comment: Interpretive Data Therapeutic heparin range: 60.0 - 94.0 seconds. Based on correlation with therapeutic heparin activity range of 0.3-0.7 Units/mL. Current interpretive data was last revised on 2020. Blood 06/07/2022 7:57 PM CDT 06/07/2022 8:14 PM CDT Narrative [facility] - 06/07/2022 8:20 PM CDT Draw [...] Ann Marie l Result Performing Organization Address [facility]/ZIP Co de Phone Number [facility] Department [place] [address] * Potassium, whole blood (06/07/2022 7:57 PM CDT) Potassium, bld 3.3 3.3 - 4.9 mmol/L [facility] Blood 06/07/2022 7:57 PM CDT 06/07/2022 8:09 PM CDT Result [facility] Catherine Adams MD LAB BLOOD ORDERABLES Final Result Performing Organization Address [facility] Co de Phone Number [facility] Department [place] [address] * (ABNORMAL) POCT glucose (06/07/2022 7:51 PM CDT) Glucose, POC 325(H) 70 - 199 mg/dL [facility] Blood 06/07/2022 7:51 PM CDT 06/07/2022 7:51 PM CDT Result [facility] Catherine Adams MD LAB POCT ORDERABLES - DEVIC E Final Result [facility] Department [place] [address] * (ABNORMAL) Differential, auto (06/07/2022 7:42 PM [...] [facility] Neutrophil pct 85.1 % [facility] Comment: Interpretive Data Percent cell count reference ranges are not reported, since discordance with absolute values may lead to misinterpretation of CBC data. Current Interpretive Data was last revised on 2017. Imm gran pct 2.4 % [facility] Comment: Interpretive Data Percent cell count reference ranges are not reported, since discordance with absolute values may lead to misinterpretation of CBC data. Current Interpretive Data was last revised on 2017. Lymphocyte pct 6.6 % [facility] Comment: Interpretive Data Percent cell count reference ranges are not reported, since discordance with absolute values may lead to misinterpretation of CBC data. Current Interpretive Data was last revised on 2017. Monocyte pct 5.8 % [facility] Comment: Interpretive Data Percent cell count reference ranges are not reported, since discordance with absolute values may lead to misinterpretation of CBC data. Current Interpretive Data was last revised on 2017. Eosinophil pct 0.0 % [facility] Comment: Interpretive Data Percent cell count reference ranges are not reported, since discordance with absolute values may lead to misinterpretation of CBC data. Current Interpretive Data was last revised on 2017. Basophil pct 0.1 % [facility] Comment: Interpretive Data Percent cell count reference ranges are not reported, since discordance with absolute values may lead to misinterpretation of CBC data. Current Interpretive Data was last revised on 2017. Blood 06/07/2022 7:42 PM CDT 06/07/2022 8:25 PM CDT Catherine Adams MD LAB BLOOD ORDERABLES Final Result Performing Organization Address City/[facility]/ZIP Co de Phone Number [facility] Department [place] [address] * (ABNORMAL) CBC with auto differential (06/07/2022 7:42 PM CDT) [facility] WBC 8.6 3.8 - 9.9 K/cumm [facility] Hgb 4.3(C) 13.0 - 17.5 g/dL [facility] Comment:Critical result call ed to and read back by LAVERN MORRISON RN on 06 07 2022 at 6 to Janis Melton. Hct 12.3(L) 38.9 - 50.3 % [facility] Plt 233 150 - 400 K/cumm [facility] MPV 11.5 9.1 - 12.3 fL [facility] RBC 1.38(L) 4.30 - 5.80 M/cumm [facility] MCV 89.1 81.3 - 96.4 fL [facility] MCH 31.2 27.1 - 33.3 pg [facility] MCHC 35.0 32.3 - 35.7 g/dL [facility] RDW CV 13.3 11.1 - 14.9 % [facility] RDW SD 43.5 35.7 - 48.1 fL [facility] NRBC abs 0.00 0.00 - 0.01 K/cumm [facility] Blood 06/07/2022 7:42 PM CDT 06/07/2022 8:25 PM CDT Catherine Adams MD LAB BLOOD ORDERABLES Final Result Performing Organization Address City/[facility]/ZIP Co de Phone Number [facility] Department [place] [address] * (ABNORMAL) Beta-hydroxybutyrate (06/07/2022 6:24 PM CDT) Pathologist [facility] [place] Beta-Hydroxybut yrate 2.3(H) 0.0 - 0.5 mmol/L [facility] Blood 06/07/2022 6:24 PM CDT 06/07/2022 6:42 PM CDT Catherine Adams MD LAB BLOOD ORDERABLES Final Result [facility] Department [place] [address] * (ABNORMAL) Differential, auto (06/07/2022 6:24 PM CDT) [facility] Neutrophil abs 6.5 1.7 - 6.5 K/cumm [facility] Imm gran abs 0.2(H) 0.0 - 0.1 K/cumm [facility] Lymphocyte abs 0.4(L) 0.8 - 3.3 K/cumm [facility] Monocyte abs 0.3 0.2 - 0.8 K/cumm [facility] Eosinophil abs 0.0 0.0 - 0.5 K/cumm [facility] Basophil abs 0.0 0.0 - 0.1 K/cumm [facility] Neutrophil pct 88.3 % [facility] Comment: Interpretive Data Percent cell count reference ranges are not reported, since discordance with absolute values may lead to misinterpretation of CBC data. Current Interpretive Data was last revised on 2017. Imm gran pct 2.0 % [facility] Comment: Interpretive Data Percent cell count reference ranges are not reported, since discordance with absolute values may lead to misinterpretation of CBC data. Current Interpretive Data was last revised on 2017. Lymphocyte pct 5.3 % [facility] Comment: Interpretive Data Percent cell count reference ranges are not reported, since discordance with absolute values may lead to misinterpretation of CBC data. Current Interpretive Data was last revised on 2017. Monocyte pct 4.4 % [facility] Comment: Interpretive Data Percent cell count reference ranges are not reported, since discordance with absolute values may lead to misinterpretation of CBC data. Current Interpretive Data was last revised on 2017. Eosinophil pct 0.0 % [facility] Comment: Interpretive Data Percent cell count reference ranges are not reported, since discordance with absolute values may lead to misinterpretation of CBC data. Current Interpretive Data was last revised on 2017. Basophil pct 0.0 % [facility] Comment: Interpretive Data Percent cell count reference ranges are not reported, since discordance with absolute values may lead to misinterpretation of CBC data. Current Interpretive Data was last revised on 2017. Blood 06/07/2022 6:24 PM CDT 06/07/2022 6:37 PM CDT Catherine Adams MD LAB BLOOD ORDERABLES Final Result Performing Organization Address City/State/[facility] Co de Phone Number [facility] Department [place] [address] * Blood culture Blood Wrist, right (06/07/2022 6:24 PM CDT) Report Final Report: No growth [facility] Blood (Wrist, right) 06/07/2022 6:24 PM CDT 06/07/2022 6:45 PM CDT Narrative [facility] - 06/12/2022 7:00 AM CDT From a [...] organism identification may be performed using the Vine Girlsigene Gram-Positive Blood Culture Assay. This assay detects microbial DNA in positive blood culture broth via hybridization of target DNA to capture oligonucleotides on a microarray. This assay has been cleared by the [place] Food and Drug Administration and its performance characteristics have been verified by the [facility]biology [facility]. 5. ?For questions about this culture, contact the Microbiology Laboratory at [phone]. Interpretive data was last revised on 2020. Catherine Adams MD LAB MICROBIOLOGY - GENERAL ORDERABLES Final Result [facility] Department [place] [address] * Blood culture Blood Central venous catheter (06/07/2022 6:24 PM CDT) Report Final Report: No growth [facility] Blood (Central venous catheter) 06/07/2022 6:24 PM CDT 06/07/2022 6:50 PM CDT Narrative [facility] - 06/12/2022 7:00 AM CDT 1. [...] performance characteristics have been verified by the [facility]biology [facility]. 5. ?For questions about this culture, contact the Microbiology Laboratory at [phone]. Interpretive data was last revised on 2020. Catherine Adams MD LAB MICROBIOLOGY - GENERAL ORDERABLES Final Result [facility] Department [place] [address] * (ABNORMAL) CBC with auto differential (06/07/2022 6:24 PM CDT) WBC 7.3 3.8 - 9.9 K/cumm [facility] Hgb 7.8(L) 13.0 - 17.5 g/dL [facility] Hct 22.1(L) 38.9 - 50.3 % [facility] Plt 194 150 - 400 K/cumm [facility] MPV 11.2 9.1 - 12.3 fL [facility] RBC 2.52(L) 4.30 - 5.80 M/cumm [facility] MCV 87.7 81.3 - 96.4 fL [facility] MCH 31.0 27.1 - 33.3 pg [facility] MCHC 35.3 32.3 - 35.7 g/dL [facility] RDW CV 13.2 11.1 - 14.9 % [facility] RDW SD 42.8 35.7 - 48.1 fL [facility] NRBC abs 0.00 0.00 - 0.01 K/cumm [facility] Blood 06/07/2022 6:24 PM CDT 06/07/2022 6:37 PM CDT Catherine Adams MD LAB BLOOD ORDERABLES Final Result [facility] Department [place] [address] * XR Chest 1 View (06/07/2022 6:20 [...] Impella device. There is an inferior approach [place]iv catheter with tip overlying the proximal right [...] Impella device. There is an inferior approach [place] catheter with tip overlying the proximal right [...] CDT) pH, Art 7.46(H) 7.35 - 7.45 [facility] PCO2, Arterial 27(L) 35 - 45 mmHg [facility] PO2, Arterial 105 83 - 108 mmHg [facility] HCO3 Art (Calculated) 20 20 - 30 mmol/L [facility] BE, art -4 mmol/L [facility] Comment: Interpretive Data No Reference Range Established Current Interpretive Data was last revised on 2017 O2 Sat Art (Measured) 98(H) 90 - 95 % [facility] Blood 06/07/2022 5:20 PM CDT 06/07/2022 5:26 PM CDT Catherine Adams MD LAB BLOOD ORDERABLES Final Result [facility] [place] [address] * Critical result callback Cardio chemistry (06/07/2022 5:12 PM CDT) Date Notified [id number] [facility] Time Notified 1850 [facility] Test name [facility] Called/Read Back Anali [facility] Credentials MD [facility] Called By Usha [facility] Blood 06/07/2022 5:12 PM CDT 06/07/2022 6:10 PM CDT Catherine Adams MD LAB BLOOD ORDERABLES Final Result [facility] Department [place] [address] * (ABNORMAL) Troponin I high-sensitivity (06/07/2022 5:12 PM CDT) Pathologist [facility] [place] Trop I hs 2,704(C) <=35 ng/L [facility] Comment: Interpretive Data For further hscTnI resources including the diagnostic algorithm and an aid in interpretation, copy and paste this link: [email or web address].[email or web address]/[email or web address] Current Interpretive Data last revised 2020. Blood 06/07/2022 5:12 PM CDT 06/07/2022 5:29 PM CDT Catherine Adams MD LAB BLOOD ORDERABLES Final Result [facility] Department [place] [address] * Lactate (06/07/2022 5:12 PM CDT) Pathologist [facility] [place] Lactate 1.3 0.7 - 2.0 mmol/L [facility] Blood 06/07/2022 5:12 PM CDT 06/07/2022 5:22 PM CDT Catherine Adams MD LAB BLOOD ORDERABLES Final Result Performing Organization Address [facility] Co de Phone Number [facility] Department [place] [address] * (ABNORMAL) eGFR (06/07/2022 5:08 PM CDT) [facility] eGFR 5(L) 90 - 130 mL/min/1. 73 m2 [facility] Comment: Interpretive Data Reference Interval Normal [...] Ann Marie l Result Performing Organization Address [facility] Co de Phone Number [facility] Department [place] [address] * (ABNORMAL) Triglycerides (06/07/2022 5:08 PM CDT) Triglycerides 172(H) <=149 mg/dL [facility] Comment: Hemolyzed; result may be falsely [...] Adams MD LAB BLOOD ORDERABLES Final Result [facility] [place] [address] * (ABNORMAL) Hemoglobin total, central venous (06/07/2022 5:08 PM CDT) Hemoglobin total, CV 8.2(L) 13.0 - 17.5 g/dL [facility] Blood 06/07/2022 5:08 PM CDT 06/07/2022 5:22 PM CDT Narrative [facility] - 06/07/2022 5:25 PM CDT If using Miley Cardiac Output Method Result [facility] Catherine Adams MD LAB BLOOD ORDERABLES Final Result Performing Organization Address City/[facility] Co de Phone Number [facility] [place] [address] * Methemoglobin, central venous (06/07/2022 5:08 PM CDT) Methemoglobin, CV 2.1 % [facility] Comment: Interpretive Data No reference range established. Current interpretive data was last revised 2019. Blood 06/07/2022 5:08 PM CDT 06/07/2022 5:22 PM CDT Narrative [facility] - 06/07/2022 5:25 PM CDT If using Miley Cardiac Output Method Result [facility] Catherine Adams MD LAB BLOOD ORDERABLES Final Result Performing Organization Address [facility] Co de Phone Number [facility] [place] [address] * Carboxyhemoglobin, central venous (06/07/2022 5:08 PM CDT) Carboxyhemoglobin , CV 1.0 % [facility] Comment: Interpretive Data No reference range established. Current interpretive data was last revised 2019. Blood 06/07/2022 5:08 PM CDT 06/07/2022 5:22 PM CDT Narrative [facility] - 06/07/2022 5:26 PM CDT If using Miley Cardiac Output Method Result [facility] Catherine Adams MD LAB BLOOD ORDERABLES Final Result Performing Organization Address City/[facility] Co de Phone Number [facility] [place] [address] * Oxyhemoglobin, central venous (06/07/2022 5:08 PM CDT) Oxyhemoglobin, CV 66.6 % [facility] Comment: Interpretive Data No reference range established. Current interpretive data was last revised 2019. Blood 06/07/2022 5:08 PM CDT 06/07/2022 5:22 PM CDT Narrative [facility] - 06/07/2022 5:25 PM CDT If using Miley Cardiac Output Method Catherine Adams MD LAB BLOOD ORDERABLES Final Result [facility] [place] [address] * (ABNORMAL) Phosphorus (06/07/2022 5:08 PM CDT) [facility] Phosphorus, pl 7.2(H) 2.3 - 4.5 mg/dL [facility] Comment:Hemolyzed; result ma y be falsely elevated Blood 06/07/2022 5:08 PM CDT 06/07/2022 5:33 PM CDT Conrad Weston Chi, MD LAB BLOOD ORDERABLES Ann Marie l Result Performing Organization Address [facility] Co de Phone Number [facility] [place] [address] * Magnesium (06/07/2022 5:08 PM CDT) [facility] Magnesium 2.2 1.4 - 2.5 mg/dL [facility] Blood 06/07/2022 5:08 PM CDT 06/07/2022 5:33 PM CDT Result [facility] Conrad Weston Chi, MD LAB BLOOD ORDERABLES Ann Marie l Result Performing Organization Address City/[facility]/ZIP Co de Phone Number [facility] Department [place] [address] * (ABNORMAL) Comprehensive metabolic panel (06/07/2022 5:08 PM CDT) Sodium 129(L) 135 - 145 mmol/L [facility] Potassium, pl See Comment 3.3 - 4.9 mmol/L [facility] Comment:Credited; Hemolyzed Specimen Chloride 87(L) 97 - 110 mmol/L [facility] CO2 21(L) 22 - 32 mmol/L [facility] Anion gap 21(H) 2 - 15 mmol/L [facility] BUN 80(H) 8 - 25 mg/dL [facility] Creatinine 10.36(H) 0.80 - 1.30 mg/dL [facility] Glucose 329(H) 70 - 199 mg/dL [facility] Comment: Interpretive Data Fasting glucose [...] 2017. Calcium 8.1(L) 8.5 - 10.3 mg/dL [facility] Bilirubin, total 0.8 0.1 - 1.2 mg/dL [facility] Protein, pl 6.0(L) 6.5 - 8.5 g/dL [facility] Albumin 2.5(L) 3.5 - 5.0 g/dL [facility] Alk phos 177(H) 40 - 130 Units/L [facility] Comment:Hemolyzed; result ma y be falsely decreased ALT See Comment 7 - 55 Units/L [facility] Comment:Credited; Hemolyzed Specimen AST See Comment 10 - 50 Units/L [facility] Comment:Credited; Hemolyzed Specimen Blood 06/07/2022 5:08 PM CDT 06/07/2022 5:33 PM CDT us Conrad Weston Chi, MD LAB BLOOD ORDERABLES Ann Marie l Result Performing Organization Address City/[facility]/ZIP Co de Phone Number [facility] [place] [address] * (ABNORMAL) POCT glucose (06/07/2022 5:00 PM CDT) Glucose, POC 385(H) 70 - 199 mg/dL [facility] Glucose comment 1 Glu2: RN/MD Notified [facility] Blood 06/07/2022 5:00 PM CDT 06/07/2022 5:00 PM CDT us Catherine Adams MD LAB POCT ORDERABLES - DEVIC E Final Result Performing Organization Address [facility] Co de Phone Number [facility] [place] [address] * ECG 12 lead (06/07/2022 4:59 PM CDT) Ventricular Rate EKG/Min 51 BPM [facility] Atrial Rate 51 BPM [facility] NM-Interval (MSEC) 212 ms [facility] QRS-Interval (MSEC) 130 ms [facility] QT-Interval (MSEC) 580 ms [facility] QTc 534 ms [facility] P [place] 69 degrees [facility] R [place] -38 degrees [facility] T [place] 95 degrees [facility] Diagnosis Sinus bradycardia with [...] BUSTOS M.D ([id number]) on 06/08/2022 9:42:26 AM [facility] 06/07/2022 4:59 PM CDT 06/08/2022 9:42 AM CDT us Catherine Adams MD ECG ORDERABLES Final Resul t [facility] * MARIELLA MAJOR CORONARY (06/07/2022 3:57 PM CDT) Anatomical Region Laterality Modality X-Ray Angiograph y Narrative 06/07/2022 4:24 PM CDT Cardiac catheterization Interventional fellow: ??Dr. Fernando Talavera HPI 51-year-old morbidly obese male with a history of end-stage renal disease on peritoneal dialysis, hypertension diabetes hyperlipidemia and recent non ST elevation [facility] now referred for complex PCI. ??Patient is followed at an outside hospital repetitive episodes of flash pulmonary edema/hypertensive urgency despite 3 medications. ??Recently underwent cardiac catheterization revealed a 90% ostial circumflex and a left-dominant circulation, 98% mid circumflex and a 70% om lesion. ??It is felt to be extremely high risk was transferred to [facility]. ?? He had hypoxemic respiratory arrest that [...] ??Using ultrasound directed micropuncture technique a 7 [place] 45 cm sheath placed in the right femoral artery over an [place] wire. ?? Subsequently, an 8 [place] sheath inserted into the left femoral vein with placement of a [place] catheter with the pulmonary artery. ??Heparin was administered to maintain ACT of 300 seconds or greater. ??Angioplasty was performed with a 7 [place] EBU 3.5 guide catheter, 0.014 in fuel pilot engineer 50 wire in the circumflex and a [...] artery sheath was exchanged for a 14 [place] Impella sheath. ??An Impella CP was placed into the left ventricle producing 3.2-3.4 liters/minute flow. ??The peel-away sheath was removed and the permanent sheath inserted. ??Two 6 [place] pro style were placed prior to sheath insertion with preserved sterilely. ?? Impella sheath was sewn in place as well as a [place] catheter. ?? Trialysis catheter was placed into [...] time, low range (06/07/2022 2:15 PM CDT) [facility] ACT 226(H) 123 - 168 sec [facility] Blood 06/07/2022 2:15 PM CDT 06/07/2022 2:15 PM CDT Catherine Adams MD LAB POCT ORDERABLES - DEVIC E Final Result [facility] One [facility] Department [place] [address] * (ABNORMAL) POC Blood Gas and Chemistries, Arterial - (06/07/2022 1:52 PM CDT) [facility] pH, Art POC 7.30(L) 7.35 - 7.45 [facility] pCO2, Art POC 42 35 - 45 mmHg [facility] pO2, Art POC 49(L) 83 - 108 mmHg [facility] Na, POC 132(L) 135 - 145 mmol/L [facility] K POC 4.1 3.3 - 4.9 mmol/L [facility] Comment: Interpretive Data This method is not able to assess for hemolysis, which may falsely increase potassium concentrations. If further testing is needed to evaluate this result, consider in-laboratory plasma potassium. Current Interpretive Data was last revised on 2022. Cl, POC 96(L) 97 - 110 mmol/L [facility] Ionized Ca, POC 4.62 4.50 - 5.10 mg/dL [facility] Glucose, POC 293(H) 70 - 199 mg/dL [facility] Lactate, POC 3.4(H) 0.7 - 2.2 mmol/L [facility] SO2 (uyen) arterial 78(L) 90 - 95 % [facility] Base excess, POC -5.5 mmol/L [facility] HCO3, Art POC 21 20 - 30 mmol/L [facility] Hct, POC 30.0(L) 41.4 - 51.6 % [facility] O2 Sat, Art POC (Calc) 80 % [facility] Total Hb, POC 9.9(L) 13.8 - 17.2 g/dL [facility] Blood 06/07/2022 1:52 PM CDT 06/07/2022 1:52 PM CDT us Conrad Weston Chi, MD LAB POCT ORDERABLES - DEV ICE Final Result Performing Organization Address City/[facility]/ZIP Co de Phone Number [facility] Department [place] [address] * (ABNORMAL) POCT Activated clotting time, low range (06/07/2022 1:49 PM CDT) ACT 214(H) 123 - 168 sec [facility] Blood 06/07/2022 1:49 PM CDT 06/07/2022 1:49 PM CDT us Catherine Adams MD LAB POCT ORDERABLES - DEVIC E Final Result Performing Organization Address City/[facility]/ZIP Co de Phone Number [facility] Department [place] [address] * (ABNORMAL) POC Blood Gas and Chemistries, Arterial - (06/07/2022 1:31 PM CDT) pH, Art POC 7.16(C) 7.35 - 7.45 [facility] pCO2, Art POC 53(H) 35 - 45 mmHg [facility] pO2, Art POC 41(L) 83 - 108 mmHg [facility] Na, POC 130(L) 135 - 145 mmol/L [facility] K POC 3.5 3.3 - 4.9 mmol/L [facility] Comment: Interpretive Data This method is not able to assess for hemolysis, which may falsely increase potassium concentrations. If further testing is needed to evaluate this result, consider in-laboratory plasma potassium. Current Interpretive Data was last revised on 2022. Cl, POC 93(L) 97 - 110 mmol/L [facility] Ionized Ca, POC 4.29(L) 4.50 - 5.10 mg/dL [facility] Glucose, POC 300(H) 70 - 199 mg/dL [facility] Lactate, POC 5.3(C) 0.7 - 2.2 mmol/L [facility] SO2 (uyen) arterial 59(C) 90 - 95 % [facility] Base excess, POC -10.1 mmol/L [facility] HCO3, Art POC 19(L) 20 - 30 mmol/L [facility] Hct, POC 31.0(L) 41.4 - 51.6 % [facility] O2 Sat, Art POC (Calc) 60 % [facility] Total Hb, POC 10.2(L) 13.8 - 17.2 g/dL [facility] Blood 06/07/2022 1:31 PM CDT 06/07/2022 1:31 PM CDT us Conrad Weston Chi, MD LAB POCT ORDERABLES - DEV ICE Final Result Performing Organization Address [facility] Co de Phone Number [facility] Department [place] [address] * (ABNORMAL) POCT Activated clotting time, low range (06/07/2022 12:47 PM CDT) ACT 289(H) 123 - 168 sec [facility] Blood 06/07/2022 12:4 7 PM CDT 06/07/2022 12:47 PM CDT Catherine Adams MD LAB POCT ORDERABLES - DEVIC E Final Result Performing Organization Address City/[facility]/ZIP Co de Phone Number [facility] Department [place] [address] * (ABNORMAL) POCT Activated clotting time, low range (06/07/2022 12:32 PM CDT) [facility] ACT 249(H) 123 - 168 sec [facility] Blood 06/07/2022 12:3 2 PM CDT 06/07/2022 12:32 PM CDT Catherine Adams MD LAB POCT ORDERABLES - DEVIC E Final Result Performing Organization Address City/[facility]/ZIP Co de Phone Number [facility] [place] [address] * POCT glucose (06/07/2022 11:27 AM CDT) [facility] Glucose, POC 179 70 - 199 mg/dL [facility] Blood 06/07/2022 11:2 7 AM CDT 06/07/2022 11:27 AM CDT Conrad Weston Chi, MD LAB POCT ORDERABLES - DEV ICE Final Result Performing Organization Address [facility] Co de Phone Number [facility] [place] [address] * (ABNORMAL) aPTT (06/07/2022 9:59 AM CDT) [facility] aPTT 71(H) 27 - 37 sec [facility] Comment: Interpretive Data Therapeutic heparin range: 60.0 - 94.0 seconds. Based on correlation with therapeutic heparin activity range of 0.3-0.7 Units/mL. Current interpretive data was last revised on 2020. Blood 06/07/2022 9:59 AM CDT 06/07/2022 10:19 AM CDT Narrative [facility] - 06/07/2022 10:46 AM CDT Draw [...] Ann Marie l Result Performing Organization Address [facility] Co de Phone Number [facility] [employer] [address] * (ABNORMAL) POCT glucose (06/07/2022 7:59 AM CDT) Glucose, POC 247(H) 70 - 199 mg/dL [facility] Blood 06/07/2022 7:59 AM CDT 06/07/2022 7:59 AM CDT Conrad Weston Chi, MD LAB POCT ORDERABLES - DEV ICE Final Result Performing Organization Address [facility] de Phone Number [facility] [place] [address] * (ABNORMAL) POCT glucose (06/07/2022 4:17 AM CDT) Glucose, POC 239(H) 70 - 199 mg/dL [facility] Blood 06/07/2022 4:17 AM CDT 06/07/2022 4:17 AM CDT Conrad Weston Chi, MD LAB POCT ORDERABLES - DEV ICE Final Result Performing Organization Address [facility] Co de Phone Number [facility] [place] [address] * (ABNORMAL) aPTT (06/07/2022 4:17 AM CDT) aPTT 57(H) 27 - 37 sec [facility] Comment: Interpretive Data Therapeutic heparin range: 60.0 - 94.0 seconds. Based on correlation with therapeutic heparin activity range of 0.3-0.7 Units/mL. Current interpretive data was last revised on 2020. Blood 06/07/2022 4:17 AM CDT 06/07/2022 4:37 AM CDT Narrative [facility] - 06/07/2022 5:01 AM CDT Draw [...] Ann Marie l Result Performing Organization Address [facility] Co de Phone Number [facility] Department [place] [employer] [place] [address] * POCT glucose (06/06/2022 11:51 PM CDT) Glucose, POC 170 70 - 199 mg/dL [facility] Blood 06/06/2022 11:5 1 PM CDT 06/06/2022 11:51 PM CDT Conrad Weston Chi, MD LAB POCT ORDERABLES - DEV ICE Final Result Performing Organization Address [facility] de Phone Number [facility] Department [place] [address] * POCT glucose (06/06/2022 8:18 PM CDT) Glucose, POC 123 70 - 199 mg/dL [facility] Blood 06/06/2022 8:18 PM CDT 06/06/2022 8:18 PM CDT Conrad Weston Chi, MD LAB POCT ORDERABLES - DEV ICE Final Result Performing Organization Address [facility] Co de Phone Number [facility] Department [place] [address] * (ABNORMAL) eGFR (06/06/2022 8:16 PM CDT) Pathologist [facility] [place] eGFR 5(L) 90 - 130 mL/min/1. 73 m2 [facility] Comment: Interpretive Data Reference Interval Normal [...] BLOOD ORDERABLES Ann Marie kramer Result [facility] Billie [facility] Department [place] [address] * (ABNORMAL) Differential, auto (06/06/2022 8:16 PM CDT) Neutrophil abs 9.8(H) 1.7 - 6.5 K/cumm [facility] Imm gran abs 0.2(H) 0.0 - 0.1 K/cumm [facility] Lymphocyte abs 0.7(L) 0.8 - 3.3 K/cumm [facility] Monocyte abs 0.9(H) 0.2 - 0.8 K/cumm [facility] Eosinophil abs 0.1 0.0 - 0.5 K/cumm [facility] Basophil abs 0.0 0.0 - 0.1 K/cumm [facility] Neutrophil pct 84.4 % [facility] Comment: Interpretive Data Percent cell count reference ranges are not reported, since discordance with absolute values may lead to misinterpretation of CBC data. Current Interpretive Data was last revised on 2017. Imm gran pct 1.3 % [facility] Comment: Interpretive Data Percent cell count reference ranges are not reported, since discordance with absolute values may lead to misinterpretation of CBC data. Current Interpretive Data was last revised on 2017. Lymphocyte pct 6.0 % [facility] Comment: Interpretive Data Percent cell count reference ranges are not reported, since discordance with absolute values may lead to misinterpretation of CBC data. Current Interpretive Data was last revised on 2017. Monocyte pct 7.6 % [facility] Comment: Interpretive Data Percent cell count reference ranges are not reported, since discordance with absolute values may lead to misinterpretation of CBC data. Current Interpretive Data was last revised on 2017. Eosinophil pct 0.5 % [facility] Comment: Interpretive Data Percent cell count reference ranges are not reported, since discordance with absolute values may lead to misinterpretation of CBC data. Current Interpretive Data was last revised on 2017. Basophil pct 0.2 % [facility] Comment: Interpretive Data Percent cell count reference ranges are not reported, since discordance with absolute values may lead to misinterpretation of CBC data. Current Interpretive Data was last revised on 2017. Blood 06/06/2022 8:16 PM CDT 06/06/2022 8:41 PM CDT Conrad Weston Chi, MD LAB BLOOD ORDERABLES Ann Marie l Result Performing Organization Address [facility] Co de Phone Number [facility] [place] [address] * (ABNORMAL) Phosphorus (06/06/2022 8:16 PM CDT) Pathologist [facility] [place] Phosphorus, pl 6.6(H) 2.3 - 4.5 mg/dL [facility] Blood 06/06/2022 8:16 PM CDT 06/06/2022 8:41 PM CDT Conrad Weston Chi, MD LAB BLOOD ORDERABLES Ann Marie l Result Performing Organization Address [facility] de Phone Number [facility] [place] [address] * Magnesium (06/06/2022 8:16 PM CDT) Pathologist [facility] [place] Magnesium 2.1 1.4 - 2.5 mg/dL [facility] Blood 06/06/2022 8:16 PM CDT 06/06/2022 8:41 PM CDT Conrad Weston Chi, MD LAB BLOOD ORDERABLES Ann Marie l Result Performing Organization Address [facility] de Phone Number [facility] [place] [address] * (ABNORMAL) CBC with auto differential (06/06/2022 8:16 PM CDT) WBC 11.6(H) 3.8 - 9.9 K/cumm [facility] Hgb 9.3(L) 13.0 - 17.5 g/dL [facility] Hct 26.4(L) 38.9 - 50.3 % [facility] Plt 207 150 - 400 K/cumm [facility] MPV 11.1 9.1 - 12.3 fL [facility] RBC 2.99(L) 4.30 - 5.80 M/cumm [facility] MCV 88.3 81.3 - 96.4 fL [facility] MCH 31.1 27.1 - 33.3 pg [facility] MCHC 35.2 32.3 - 35.7 g/dL [facility] RDW CV 13.1 11.1 - 14.9 % [facility] RDW SD 42.2 35.7 - 48.1 fL [facility] NRBC abs 0.00 0.00 - 0.01 K/cumm [facility] Blood 06/06/2022 8:16 PM CDT 06/06/2022 8:41 PM CDT us Conrad Weston Chi, MD LAB BLOOD ORDERABLES Ann Marie l Result [facility] One [facility] Department [place] [address] * (ABNORMAL) Comprehensive metabolic panel (06/06/2022 8:16 PM CDT) Sodium 132(L) 135 - 145 mmol/L [facility] Potassium, pl 3.4 3.3 - 4.9 mmol/L [facility] Chloride 89(L) 97 - 110 mmol/L [facility] CO2 25 22 - 32 mmol/L [facility] Anion gap 18(H) 2 - 15 mmol/L [facility] BUN 82(H) 8 - 25 mg/dL [facility] Creatinine 10.45(H) 0.80 - 1.30 mg/dL [facility] Glucose 112 70 - 199 mg/dL [facility] Comment: Interpretive Data Fasting glucose [...] 2017. Calcium 7.5(L) 8.5 - 10.3 mg/dL [facility] Bilirubin, total 0.7 0.1 - 1.2 mg/dL [facility] Protein, pl 6.5 6.5 - 8.5 g/dL [facility] Albumin 3.2(L) 3.5 - 5.0 g/dL [facility] Alk phos 135(H) 40 - 130 Units/L [facility] ALT 40 7 - 55 Units/L [facility] AST 45 10 - 50 Units/L [facility] Blood 06/06/2022 8:16 PM CDT 06/06/2022 8:41 PM CDT Conrad Weston Chi, MD LAB BLOOD ORDERABLES Ann Marie l Result Performing Organization Address City/[facility]/ZIP Co de Phone Number [facility] Department [place] [address] * POCT glucose (06/06/2022 5:53 PM CDT) Glucose, POC 99 70 - 199 mg/dL [facility] Blood 06/06/2022 5:53 PM CDT 06/06/2022 5:53 PM CDT Conrad Weston Chi, MD LAB POCT ORDERABLES - DEV ICE Final Result [facility] [place] [address] * POCT glucose (06/06/2022 11:38 AM CDT) Glucose, POC 108 70 - 199 mg/dL [facility] Blood 06/06/2022 11:3 8 AM CDT 06/06/2022 11:38 AM CDT Conrad Weston Chi, MD LAB POCT ORDERABLES - DEV ICE Final Result Performing Organization Address City/[facility] Co de Phone Number [facility] [place] [address] * (ABNORMAL) aPTT (06/06/2022 10:26 AM CDT) aPTT 71(H) 27 - 37 sec [facility] Comment: Interpretive Data Therapeutic heparin range: 60.0 - 94.0 seconds. Based on correlation with therapeutic heparin activity range of 0.3-0.7 Units/mL. Current interpretive data was last revised on 2020. Blood 06/06/2022 10:2 6 AM CDT 06/06/2022 10:37 AM CDT Narrative [facility] - 06/06/2022 11:02 AM CDT Draw [...] Ann Marie l Result Performing Organization Address [facility] Co de Phone Number [facility] [place] [address] * POCT glucose (06/06/2022 8:06 AM CDT) Glucose, POC 109 70 - 199 mg/dL [facility] Blood 06/06/2022 8:06 AM CDT 06/06/2022 8:06 AM CDT Conrad Weston Chi, MD LAB POCT ORDERABLES - DEV ICE Final Result Performing Organization Address City/[facility] Co de Phone Number [facility] [place] [address] * XR Chest 1 View (06/06/2022 4:45 [...] Glucose, POC 164 70 - 199 mg/dL [facility] Blood 06/06/2022 3:49 AM CDT 06/06/2022 3:49 AM CDT Conrad Weston Chi, MD LAB POCT ORDERABLES - DEV ICE Final Result Performing Organization Address [facility] de Phone Number [facility] [place] [address] * (ABNORMAL) aPTT (06/06/2022 3:41 AM CDT) aPTT 65(H) 27 - 37 sec [facility] Comment: Interpretive Data Therapeutic heparin range: 60.0 - 94.0 seconds. Based on correlation with therapeutic heparin activity range of 0.3-0.7 Units/mL. Current interpretive data was last revised on 2020. Blood 06/06/2022 3:41 AM CDT 06/06/2022 4:23 AM CDT Narrative [facility] - 06/06/2022 4:32 AM CDT Draw [...] Ann Marie l Result Performing Organization Address [facility] de Phone Number [facility] Department [place] [address] * (ABNORMAL) Blood gas, arterial (06/06/2022 1:14 AM CDT) pH, Art 7.39 7.35 - 7.45 [facility] PCO2, Arterial 37 35 - 45 mmHg [facility] PO2, Arterial 169(H) 83 - 108 mmHg [facility] HCO3 Art (Calculated) 23 20 - 30 mmol/L [facility] BE, art -2 mmol/L [facility] Comment: Interpretive Data No Reference Range Established Current Interpretive Data was last revised on 2017 O2 Sat Art (Measured) 99(H) 90 - 95 % [facility] Blood 06/06/2022 1:14 AM CDT 06/06/2022 1:29 AM CDT Conrad Weston Chi, MD LAB BLOOD ORDERABLES Ann Marie l Result Performing Organization Address [facility] Co de Phone Number [facility] Department [place] [address] * POCT glucose (06/06/2022 12:01 AM CDT) Glucose, POC 192 70 - 199 mg/dL [facility] Blood 06/06/2022 12:0 1 AM CDT 06/06/2022 12:01 AM CDT Conrad Weston Chi, MD LAB POCT ORDERABLES - DEV ICE Final Result Performing Organization Address [facility] [facility] de Phone Number [facility] [place] [address] * XR Abdomen Ap 1 Vw (06/05/2022 11:30 PM CDT) Anatomical Region Laterality Modality Body, Abdomen N/A Computed Radiogr aphy 06/06/2022 9:30 AM CDT Impressions 06/06/2022 11:54 AM CDT A single view of the abdomen is submitted for evaluation. The pelvis is excluded from the [id number] and unavailable for interpretation. ??A rounded density projecting over the left upper quadrant may be external to the patient. Bowel within the imaged upper abdomen is normal in caliber. Dictated by: Shiva nAaya MD The radiology attending physician has personally [...] evaluation. The pelvis is excluded from the [id number] and unavailable for interpretation. A rounded density [...] * POCT glucose (06/05/2022 9:13 PM CDT) [facility] Glucose, POC 195 70 - 199 mg/dL [facility] Blood 06/05/2022 9:13 PM CDT 06/05/2022 9:13 PM CDT Conrad Weston Chi, MD LAB POCT ORDERABLES - DEV ICE Final Result [facility] One [facility] Department [place] [address] * (ABNORMAL) eGFR (06/05/2022 8:47 PM CDT) [facility] eGFR 6(L) 90 - 130 mL/min/1. 73 m2 [facility] Comment: Interpretive Data Reference Interval Normal [...] MD PhD LAB BLOOD ORDERABLES Final Result [facility] One [facility] Department [place] [address] * (ABNORMAL) Urinalysis, microscopic only (06/05/2022 8:47 PM CDT) WBC, ur 6-10(A) 0 - 5 /HPF [facility] RBC, ur >50(A) 0 - 2 /HPF [facility] Epithelial cells, squamous, ur 1-5 0 - 5 /HPF [facility] Epithelial cells, transitional, ur 1-5 0 - 0 /HPF [facility] Bacteria, ur 2+(A) [facility] Mucous, ur Present(A) [facility] Hyaline casts, ur 11-20(A) 0 - 10 /LPF [facility] Culture Reflex Comment Reflex conditions for urine culture (WBC >10) not met. [facility] Urine 06/05/2022 8:47 PM CDT 06/05/2022 9:32 PM CDT us Conrad Weston Chi, MD LAB URINE ORDERABLES Ann Marie kramer Result [facility] One [facility] Department [place] [address] * (ABNORMAL) Differential, auto (06/05/2022 8:47 PM CDT) Neutrophil abs 7.7(H) 1.7 - 6.5 K/cumm [facility] Imm gran abs 0.1 0.0 - 0.1 K/cumm [facility] Lymphocyte abs 0.5(L) 0.8 - 3.3 K/cumm [facility] Monocyte abs 0.7 0.2 - 0.8 K/cumm [facility] Eosinophil abs 0.0 0.0 - 0.5 K/cumm [facility] Basophil abs 0.0 0.0 - 0.1 K/cumm [facility] Neutrophil pct 85.3 % [facility] Comment: Interpretive Data Percent cell count reference ranges are not reported, since discordance with absolute values may lead to misinterpretation of CBC data. Current Interpretive Data was last revised on 2017. Imm gran pct 1.3 % [facility] Comment: Interpretive Data Percent cell count reference ranges are not reported, since discordance with absolute values may lead to misinterpretation of CBC data. Current Interpretive Data was last revised on 2017. Lymphocyte pct 5.8 % [facility] Comment: Interpretive Data Percent cell count reference ranges are not reported, since discordance with absolute values may lead to misinterpretation of CBC data. Current Interpretive Data was last revised on 2017. Monocyte pct 7.5 % [facility] Comment: Interpretive Data Percent cell count reference ranges are not reported, since discordance with absolute values may lead to misinterpretation of CBC data. Current Interpretive Data was last revised on 2017. Eosinophil pct 0.0 % [facility] Comment: Interpretive Data Percent cell [...] BLOOD ORDERABLES Final Result Performing Organization Address [facility] Co de Phone Number [facility] [place] [address] * (ABNORMAL) Blood gas, arterial (06/05/2022 8:47 PM CDT) Pathologist [facility] [place] pH, Art 7.38 7.35 - 7.45 [facility] PCO2, Arterial 37 35 - 45 mmHg [facility] PO2, Arterial 76(L) 83 - 108 mmHg [facility] HCO3 Art (Calculated) 22 20 - 30 mmol/L [facility] BE, art -3 mmol/L [facility] Comment: Interpretive Data No Reference Range Established Current Interpretive Data was last revised on 2017 O2 Sat Art (Measured) 94 90 - 95 % [facility] Blood 06/05/2022 8:47 PM CDT 06/05/2022 9:32 PM CDT Result [facility] Conrad Weston Chi, MD LAB BLOOD ORDERABLES Ann Marie l Result Performing Organization Address [facility] Co de Phone Number [facility] Department [place] [address] * (ABNORMAL) Troponin I high-sensitivity (06/05/2022 8:47 PM CDT) [facility] Trop I hs 3,996(C) <=35 ng/L [facility] Comment: Previous critical value noted within 48 hours ago. Interpretive Data For further [facility] resources including the diagnostic algorithm and an aid in interpretation, copy and paste this link: [email or web address] Current Interpretive Data last revised 2020. Blood 06/05/2022 8:47 PM CDT 06/05/2022 9:47 PM CDT Conrad Weston Chi, MD LAB BLOOD ORDERABLES Ann Marie l Result [facility] One [facility] Department [place] [address] * (ABNORMAL) Urinalysis reflex to microscopic and culture Urine (06/05/2022 8:47 PM CDT) Color, ur Yellow Yellow [facility] Clarity, ur Cloudy(A) Clear [facility] Specific gravity, ur 1.037(H) 1.003 - 1.030 [facility] pH, urine 6.0 [facility] Protein, ur ql 3+(A) Negative [facility] Glucose, ur ql 3+(A) Negative [facility] Ketones, ur Negative Negative [facility] Bilirubin, ur Negative Negative [facility] Blood, ur 3+(A) Negative [facility] Urobilinogen, ur <2.0 <2.0 mg/dL [facility] Nitrite, ur Negative Negative [facility] Leukocyte esterase, ur Negative Negative [facility] UA reflex comment Reflex to microscopic UA will be performed. [facility] Urine 06/05/2022 8:47 PM CDT 06/05/2022 8:47 PM CDT Narrative [facility] - 06/05/2022 9:49 PM CDT ?? Urine pH is affected by diet, medications, systemic acid-base disturbances, and renal tubular function. ??pH may affect urinary stone formation. ??For example, urine pH below 6.0 may help reduce the tendency for calcium phosphate stones and pH greater than 6.0 may reduce the tendency for uric acid stone formation. Source: [employer]. Last revised 08-31-2017 us Conrad Weston Chi, MD LAB MICROBIOLOGY - GENERA L ORDERABLES Final Result Performing Organization Address [facility] Co de Phone Number [facility] [place] [address] * (ABNORMAL) Phosphorus (06/05/2022 8:47 PM CDT) [facility] Phosphorus, pl 6.5(H) 2.3 - 4.5 mg/dL [facility] Blood 06/05/2022 8:47 PM CDT 06/05/2022 9:46 PM CDT Conrad Weston Chi, MD LAB BLOOD ORDERABLES Ann Marie l Result Performing Organization Address [facility] Co de Phone Number [facility] [place] [address] * Magnesium (06/05/2022 8:47 PM CDT) [facility] Magnesium 1.9 1.4 - 2.5 mg/dL [facility] Blood 06/05/2022 8:47 PM CDT 06/05/2022 9:46 PM CDT Conrad Weston Chi, MD LAB BLOOD ORDERABLES Ann Marie l Result Performing Organization Address [facility] Co de Phone Number [facility] Department [place] [address] * (ABNORMAL) CBC with auto differential (06/05/2022 8:47 PM CDT) [facility] WBC 9.1 3.8 - 9.9 K/cumm [facility] Hgb 9.3(L) 13.0 - 17.5 g/dL [facility] Hct 26.0(L) 38.9 - 50.3 % [facility] Plt 201 150 - 400 K/cumm [facility] MPV 11.3 9.1 - 12.3 fL [facility] RBC 2.95(L) 4.30 - 5.80 M/cumm [facility] MCV 88.1 81.3 - 96.4 fL [facility] MCH 31.5 27.1 - 33.3 pg [facility] MCHC 35.8(H) 32.3 - 35.7 g/dL [facility] RDW CV 12.6 11.1 - 14.9 % [facility] RDW SD 40.7 35.7 - 48.1 fL [facility] NRBC abs 0.00 0.00 - 0.01 K/cumm [facility] Blood 06/05/2022 8:47 PM CDT 06/05/2022 9:45 PM CDT us Conrad Weston Chi, MD LAB BLOOD ORDERABLES Ann Marie kramer Result [facility] One [facility] Department [place] [address] * (ABNORMAL) Comprehensive metabolic panel (06/05/2022 8:47 PM CDT) Sodium 132(L) 135 - 145 mmol/L [facility] Potassium, pl 3.6 3.3 - 4.9 mmol/L [facility] Chloride 90(L) 97 - 110 mmol/L [facility] CO2 25 22 - 32 mmol/L [facility] Anion gap 17(H) 2 - 15 mmol/L [facility] BUN 84(H) 8 - 25 mg/dL [facility] Creatinine 9.77(H) 0.80 - 1.30 mg/dL [facility] Glucose 180 70 - 199 mg/dL [facility] Comment: Interpretive Data Fasting glucose [...] 2017. Calcium 7.8(L) 8.5 - 10.3 mg/dL [facility] Bilirubin, total 0.6 0.1 - 1.2 mg/dL [facility] Protein, pl 6.3(L) 6.5 - 8.5 g/dL [facility] Albumin 3.4(L) 3.5 - 5.0 g/dL [facility] Alk phos 126 40 - 130 Units/L [facility] ALT 43 7 - 55 Units/L [facility] AST 46 10 - 50 Units/L [facility] Blood 06/05/2022 8:47 PM CDT 06/05/2022 9:46 PM CDT Conrad Weston Chi, MD LAB BLOOD ORDERABLES Ann Marie l Result Performing Organization Address [facility] de Phone Number [facility] Department [place] [address] * Cell Differential, Body Fluid (06/05/2022 8:36 PM CDT) Total cells diffed 100 cells [facility] Comment: Interpretive Data Unless otherwise specified, the reference range and other method performance specifications have not been established for CSF/Body Fluid tests. ??The test results should be integrated into the clinical context for interpretation. Current interpretive data was last revised on 2019. Neutrophils, fld 4 % [facility] Lymphs, fld 9 % [facility] Monocyte, fld 68 % [facility] Macrophages, fld 18 % [facility] Mesothelial cells, fld 1 % [facility] Fluid 06/05/2022 8:36 PM CDT 06/05/2022 9:01 PM CDT Conrad Weston Chi, MD LAB BODY FLUIDS AND STOOL S ORDERABLES Final Result Performing Organization Address [facility] Co de Phone Number [facility] Department [place] [address] * Aerobic and anaerobic culture and gram stain Peritoneal dialysis fluid Abdominal (06/05/2022 8:36 PM CDT) Direct Specimen Exam Stain: Cytospin Gram stain shows: No polymorphonuclear leukocytes seen. Other cellular material present. No organisms seen. [facility] Report Final Report: No growth [facility] Peritoneal dialysis fluid (Abdominal) 06/05/2022 8:36 PM CDT 06/05/2022 11:56 PM CDT Narrative [facility] - 06/11/2022 1:37 PM CDT Testing performed by [facility] ([phone]) Specimens submitted from normally sterile body sites [...] - GENERA L ORDERABLES Final Result [facility] One [facility] Department [place] [address] * Cell count with reflex to differential, body fluid (06/05/2022 8:36 PM CDT) Specimen type, fld Peritoneal [facility] Color, fld Straw [facility] Clarity, fld Clear Clear [facility] Nucleated cells, fld 11 /cumm [facility] Comment: Interpretive Data Unless otherwise specified, the reference range and other method performance specifications have not been established for CSF/Body Fluid tests. ??The test results should be integrated into the clinical context for interpretation. Current interpretive data was last revised on 2019. RBC, fld 0 /cumm [facility] Fluid 06/05/2022 8:36 PM CDT 06/05/2022 9:01 PM CDT Conrad Weston Chi, MD LAB BODY FLUIDS AND STOOL S ORDERABLES Final Result Performing Organization Address [facility] Co de Phone Number [facility] [place] [address] * Lipase (06/05/2022 6:39 PM CDT) Lipase 14 10 - 99 Units/L [facility] Blood 06/05/2022 6:39 PM CDT 06/05/2022 6:53 PM CDT Conrad Weston Chi, MD LAB BLOOD ORDERABLES Ann Marie l Result Performing Organization Address [facility] [place] [address] * (ABNORMAL) aPTT (06/05/2022 6:34 PM CDT) aPTT 38(H) 27 - 37 sec [facility] Comment: Interpretive Data Therapeutic heparin range: 60.0 - 94.0 seconds. Based on correlation with therapeutic heparin activity range of 0.3-0.7 Units/mL. Current interpretive data was last revised on 2020. Blood 06/05/2022 6:34 PM CDT 06/05/2022 6:40 PM CDT Conrad Weston Chi, MD LAB BLOOD ORDERABLES Ann Marie l Result Performing Organization Address [facility] [place] [address] * US RUQ (06/05/2022 6:12 PM CDT) [...] POC 275(H) 70 - 199 mg/dL [facility] Blood 06/05/2022 5:07 PM CDT 06/05/2022 5:07 PM CDT us Conrad Weston Chi, MD LAB POCT ORDERABLES - DEV ICE Final Result [facility] One [facility] Department [place] [address] * Blood culture Blood Antecubital, left (06/05/2022 5:06 PM CDT) Report Final Report: No growth [facility] Blood (Antecubital, left) 06/05/2022 5:06 PM CDT 06/05/2022 5:21 PM CDT Narrative [facility] - 06/10/2022 7:01 AM CDT From a [...] organism identification may be performed using the [employer] Gram-Positive Blood Culture Assay. This assay detects microbial DNA in positive blood culture broth via hybridization of target DNA to capture oligonucleotides on a microarray. This assay has been cleared by the [place] Food and Drug Administration and its performance characteristics have been verified by the [facility]. 5. ?For questions about this culture, contact the Microbiology Laboratory at [phone]. Interpretive data was last revised on 2020. Conrad Weston Chi, MD LAB MICROBIOLOGY - GENERA L ORDERABLES Final Result [facility] Department [place] [address] * Blood culture Blood Antecubital, right (06/05/2022 [...] organism identification may be performed using the [employer] Gram-Positive Blood Culture Assay. This assay detects microbial DNA in positive blood culture broth via hybridization of target DNA to capture oligonucleotides on a microarray. This assay has been cleared by the [place] Food and Drug Administration and its performance characteristics have been verified by the [facility]. 5. ?For questions about this culture, contact the Microbiology Laboratory at [phone]. Interpretive data was last revised on 2020. Conrad Weston Chi, MD LAB MICROBIOLOGY - GENERA L ORDERABLES Final Result Performing Organization Address City/[facility] Co de Phone Number [facility] One [facility] Department [place] [address] * (ABNORMAL) Troponin I high-sensitivity (06/05/2022 4:07 PM CDT) Trop I hs 4,266(C) <=35 ng/L [facility] Comment: Previous critical value noted within 48 hours ago. Interpretive Data For further [facility]scTnI resources including the diagnostic algorithm and an aid in interpretation, copy and paste this link: [email or web address] Current Interpretive Data last revised 2020. Blood 06/05/2022 4:07 PM CDT 06/05/2022 4:27 PM CDT Conrad Weston Chi, MD LAB BLOOD ORDERABLES Ann Marie l Result [facility] One [facility] Department [place] [address] * (ABNORMAL) eGFR (06/05/2022 3:54 PM CDT) Pathologist [facility] [place] eGFR 6(L) 90 - 130 mL/min/1. 73 m2 [facility] Comment: Interpretive Data Reference Interval Normal [...] BLOOD ORDERABLES Final Result Performing Organization Address [facility]/State/ZIP Co de Phone Number [facility] One [facility] Department [place] [address] * (ABNORMAL) Differential, auto (06/05/2022 3:54 PM CDT) Neutrophil abs 9.2(H) 1.7 - 6.5 K/cumm [facility] Imm gran abs 0.1 0.0 - 0.1 K/cumm [facility] Lymphocyte abs 0.6(L) 0.8 - 3.3 K/cumm [facility] Monocyte abs 0.8 0.2 - 0.8 K/cumm [facility] Eosinophil abs 0.0 0.0 - 0.5 K/cumm [facility] Basophil abs 0.0 0.0 - 0.1 K/cumm [facility] Neutrophil pct 86.0 % [facility] Comment: Interpretive Data Percent cell count reference ranges are not reported, since discordance with absolute values may lead to misinterpretation of CBC data. Current Interpretive Data was last revised on 2017. Imm gran pct 0.8 % [facility] Comment: Interpretive Data Percent cell count reference ranges are not reported, since discordance with absolute values may lead to misinterpretation of CBC data. Current Interpretive Data was last revised on 2017. Lymphocyte pct 5.6 % [facility] Comment: Interpretive Data Percent cell count reference ranges are not reported, since discordance with absolute values may lead to misinterpretation of CBC data. Current Interpretive Data was last revised on 2017. Monocyte pct 7.4 % [facility] Comment: Interpretive Data Percent cell count reference ranges are not reported, since discordance with absolute values may lead to misinterpretation of CBC data. Current Interpretive Data was last revised on 2017. Eosinophil pct 0.1 % [facility] Comment: Interpretive Data Percent cell count reference ranges are not reported, since discordance with absolute values may lead to misinterpretation of CBC data. Current Interpretive Data was last revised on 2017. Basophil pct 0.1 % [facility] Comment: Interpretive Data Percent cell count reference ranges are not reported, since discordance with absolute values may lead to misinterpretation of CBC data. Current Interpretive Data was last revised on 2017. Blood 06/05/2022 3:54 PM CDT 06/05/2022 4:27 PM CDT Champ Osborne MD PhD LAB BLOOD ORDERABLES Final Result Performing Organization Address [facility] [place] [address] * Type and screen (06/05/2022 3:54 PM CDT) ABO Rh A Positive [facility] Maribel, indirect Negative [facility] Blood 06/05/2022 3:54 PM CDT 06/05/2022 4:18 PM CDT Narrative [facility] - 06/05/2022 5:07 PM CDT Has the patient had Daratumumab or Isatuximab in the past 6 months?->Unknown Champ Osborne MD PhD LAB BLOOD BANK TEST ORDERA BLES Final Result Performing Organization Address [place]/[facility] [place] [address] * (ABNORMAL) aPTT (06/05/2022 3:54 PM CDT) Pathologist [facility] [place] aPTT 45(H) 27 - 37 sec [facility] Comment: Interpretive Data Therapeutic heparin range: 60.0 - 94.0 seconds. Based on correlation with therapeutic heparin activity range of 0.3-0.7 Units/mL. Current interpretive data was last revised on 2020. Blood (Blood, Venous) 06/05/2022 3:54 PM CDT 06/05/2022 4:16 PM CDT Champ Osborne MD PhD LAB BLOOD ORDERABLES Final Result Performing Organization Address [facility] [place] [address] * Protime-INR (06/05/2022 3:54 PM CDT) PT 10.8 9.2 - 13.5 sec [facility] INR 1.0 0.9 - 1.2 [facility] Comment: Interpretive data Oral anticoagulant [...] MD PhD LAB BLOOD ORDERABLES Final Result [facility] Department [place] [address] * (ABNORMAL) CBC with auto differential (06/05/2022 3:54 PM CDT) WBC 10.7(H) 3.8 - 9.9 K/cumm [facility] Hgb 10.3(L) 13.0 - 17.5 g/dL [facility] Hct 29.1(L) 38.9 - 50.3 % [facility] Plt 238 150 - 400 K/cumm [facility] MPV 11.1 9.1 - 12.3 fL [facility] RBC 3.32(L) 4.30 - 5.80 M/cumm [facility] MCV 87.7 81.3 - 96.4 fL [facility] MCH 31.0 27.1 - 33.3 pg [facility] MCHC 35.4 32.3 - 35.7 g/dL [facility] RDW CV 12.5 11.1 - 14.9 % [facility] RDW SD 40.3 35.7 - 48.1 fL [facility] NRBC abs 0.00 0.00 - 0.01 K/cumm [facility] Blood 06/05/2022 3:54 PM CDT 06/05/2022 4:27 PM CDT Champ Osborne MD PhD LAB BLOOD ORDERABLES Final Result Performing Organization Address City/[facility]/ZIP Co de Phone Number [facility] One [facility] [place] [address] * Lactate (06/05/2022 3:54 PM CDT) Pathologist [facility] [place] Lactate 1.6 0.7 - 2.0 mmol/L [facility] Blood 06/05/2022 3:54 PM CDT 06/05/2022 4:27 PM CDT Champ Osborne MD PhD LAB BLOOD ORDERABLES Final Result Performing Organization Address [facility] Co de Phone Number [facility] Department [place] [address] * (ABNORMAL) Basic metabolic panel (06/05/2022 3:54 PM CDT) Pathologist [facility] [place] Sodium 132(L) 135 - 145 mmol/L [facility] Potassium, pl 4.1 3.3 - 4.9 mmol/L [facility] Chloride 87(L) 97 - 110 mmol/L [facility] CO2 26 22 - 32 mmol/L [facility] Anion gap 19(H) 2 - 15 mmol/L [facility] BUN 81(H) 8 - 25 mg/dL [facility] Creatinine 9.08(H) 0.80 - 1.30 mg/dL [facility] Glucose 276(H) 70 - 199 mg/dL [facility] Comment: Interpretive Data Fasting glucose [...] 2017. Calcium 8.1(L) 8.5 - 10.3 mg/dL [facility] Blood 06/05/2022 3:54 PM CDT 06/05/2022 4:27 PM CDT us Champ Osborne MD PhD LAB BLOOD ORDERABLES Final Result Performing Organization Address [facility]/ZIP Co de Phone Number [facility] Department [place] [address] * (ABNORMAL) POCT glucose (06/05/2022 3:46 PM CDT) Glucose, POC 279(H) 70 - 199 mg/dL [facility] Blood 06/05/2022 3:46 PM CDT 06/05/2022 3:46 PM CDT us Conrad Weston Chi, MD LAB POCT ORDERABLES - DEV ICE Final Result Performing Organization Address [facility] Co de Phone Number [facility] [place] [address] * (ABNORMAL) eGFR (06/05/2022 3:22 PM CDT) eGFR 6(L) 90 - 130 mL/min/1. 73 m2 [facility] Comment: Interpretive Data Reference Interval Normal [...] BLOOD ORDERABLES Final Result Performing Organization Address City/[facility] Co de Phone Number [facility] [place] [address] * (ABNORMAL) POCT [id number]-[id number]-HCT, WB - ISTAT (06/05/2022 3:22 PM CDT) Na POC 126(L) 135 - 145 mmol/L [facility] K POC 3.6 3.3 - 4.9 mmol/L [facility] Comment: Interpretive Data This method is not able to assess for hemolysis, which may falsely increase potassium concentrations. If further testing is needed to evaluate this result, consider in-laboratory plasma potassium. Current Interpretive Data was last revised on 2022. Glucose POC i-STAT 287(H) 70 - 199 mg/dL [facility] Hct, POC 30.0(L) 38.9 - 50.3 % [facility] Blood 06/05/2022 3:22 PM CDT 06/05/2022 3:22 PM CDT us Champ Osborne MD PhD LAB POCT ORDERABLES - APRIL CE Final Result Performing Organization Address City/[facility]/ZIP Co de Phone Number [facility] Department [place] [address] * Magnesium (06/05/2022 3:22 PM CDT) Pathologist [facility] [place] Magnesium 2.1 1.4 - 2.5 mg/dL [facility] Blood 06/05/2022 3:22 PM CDT 06/05/2022 3:59 PM CDT Champ Osborne MD PhD LAB BLOOD ORDERABLES Final Result [facility] Department [place] [address] * (ABNORMAL) Basic metabolic panel (06/05/2022 3:22 PM CDT) Pathologist [facility] [place] Sodium 127(L) 135 - 145 mmol/L [facility] Potassium, pl 3.9 3.3 - 4.9 mmol/L [facility] Comment:Hemolyzed; Potassium value may be falsely elevated by as much as 0.3-0.5 mmol/L. Suggest redraw and reanalysis. Chloride 88(L) 97 - 110 mmol/L [facility] CO2 19(L) 22 - 32 mmol/L [facility] Anion gap 20(H) 2 - 15 mmol/L [facility] BUN 79(H) 8 - 25 mg/dL [facility] Creatinine 9.13(H) 0.80 - 1.30 mg/dL [facility] Glucose 294(H) 70 - 199 mg/dL [facility] Comment: Interpretive Data Fasting glucose [...] 2017. Calcium 8.2(L) 8.5 - 10.3 mg/dL [facility] Blood 06/05/2022 3:22 PM CDT 06/05/2022 3:59 PM CDT Champ Osborne MD PhD LAB BLOOD ORDERABLES Final Result Performing Organization Address [facility] de Phone Number [facility] [place] [address] * (ABNORMAL) Troponin I high-sensitivity (06/05/2022 3:21 PM CDT) [facility] Trop I hs 4,261(C) <=35 ng/L [facility] Comment: Previous critical value noted within 48 hours ago. Interpretive Data For further [facility] resources including the diagnostic algorithm and an aid in interpretation, copy and paste this link: [email or web address].testcatalog.org/show/[email or web address] Current Interpretive Data last revised 2020. Blood 06/05/2022 3:21 PM CDT 06/05/2022 3:59 PM CDT us Champ Osborne MD PhD LAB BLOOD ORDERABLES Final Result Performing Organization Address [facility] de Phone Number [facility] [place] [address] * (ABNORMAL) Arterial Blood gas w/Lactate POCT (06/05/2022 3:17 PM CDT) [facility] Lactate POC i-STAT 2.0 0.7 - 2.2 mmol/L [facility] pH POC 7.38 7.35 - 7.45 [facility] pCO2, Art POC 37 35 - 45 mmHg [facility] PO2 POC 53(L) 80 - 105 mmHg [facility] CO2, total POC 23 20 - 30 mmol/L [facility] HCO3, POC 22 21 - 30 mmol/L [facility] BE POC -3(L) -2 - 3 mmol/L [facility] O2 sat POC 86(L) 95 - 98 % [facility] Blood 06/05/2022 3:17 PM CDT 06/05/2022 3:17 PM CDT Champ Osborne MD PhD LAB BLOOD ORDERABLES Final Result [facility] Department [place] [address] * XR Chest 1 View (06/05/2022 3:15 [...] [facility]ALTHC[facility] Atrial Rate 73 BPM [facility] NM-Interval (MSEC) 184 ms [facility] QRS-Interval (MSEC) 106 ms [facility] QT-Interval (MSEC) 442 ms [facility] QTc 486 ms [facility] P [place] 49 degrees [facility] R [place] -33 degrees [facility] T [place] 87 degrees [facility] Diagnosis Normal sinus rhythm Left axis deviation QS in V1 and V2, a nonspecific finding with multiple causes, including lead misplacement or septal infarction in 20% Abnormal ECG Confirmed by JESS BUSTOS M.D ([id number]) on 06/07/2022 8:30:06 AM [facility] 06/05/2022 2:52 PM CDT 06/07/2022 8:30 AM CDT Champ Osborne MD PhD ECG ORDERABLES Final Resu lt Performing Organization Address City/[facility]/ZIP Co de Phone Number [facility] * (ABNORMAL) POCT glucose (06/05/2022 2:22 PM CDT) [facility] Glucose, POC 389(H) 70 - 199 mg/dL [facility] Blood 06/05/2022 2:22 PM CDT 06/05/2022 2:22 PM CDT us Champ Osborne MD PhD LAB POCT ORDERABLES - APRIL CE Final Result Performing Organization Address City/[facility] Co de Phone Number [facility] Department [place] [address] * Respiratory pathogen panel Nasopharyngeal (06/05/2022 1:05 PM CDT) [facility] Influenza A RNA Not Detected Not Detected [facility] Influenza B RNA Not Detected Not Detected [facility] RSV RNA Not Detected Not Detected [facility] COVID-19 RNA Not Detected Not Detected [facility] Coronavirus 229E RNA Not Detected Not Detected [facility] Coronavirus HKU1 RNA Not Detected Not Detected [facility] Coronavirus NL63 RNA Not Detected Not Detected [facility] Coronavirus OC43 RNA Not Detected Not Detected [facility] Adenovirus DNA Not Detected Not Detected [facility] Metapneumovirus RNA Not Detected Not Detected [facility] Rhinovirus/Enterov irus RNA Not Detected Not Detected [facility] Parainfluenza 1 RNA Not Detected Not Detected [facility] Parainfluenza 2 RNA Not Detected Not Detected [facility] Parainfluenza 3 RNA Not Detected Not Detected [facility] Parainfluenza 4 RNA Not Detected Not Detected [facility] B. pertussis DNA Not Detected Not Detected [facility] B. parapertussis DNA Not Detected Not Detected [facility] C. pneumoniae DNA Not Detected Not Detected [facility] M. pneumoniae DNA Not Detected Not Detected [facility] Nasopharyngeal 06/05/2022 1: 05 PM CDT 06/05/2022 1:32 PM CDT Narrative [facility] - 06/05/2022 2:40 PM CDT Is the Patient experiencing symptoms consistent with COVID?->No Reason for testing?->Symptomatic Surveillance testing for transplant patient?->No ??Interpretive Data The Spotie FilmArray Respiratory Panel (RP2.1) assay is a [...] assay has FDA clearance for testing of COMMUNICATION SPECIALIST swabs. ??The performance of additional specimen types has been assessed by the performing laboratory. ??The performance characteristics of this assay have been determined by [facility] Molecular Infectious Disease [facility]. Current interpretive data was last revised on 22. Champ Osborne MD PhD LAB MICROBIOLOGY - GENERAL ORDERABLES Final Result Performing Organization Address City/[facility]/ZIP Co de Phone Number [facility] Department [place] [address] * Lactate (06/05/2022 12:10 PM CDT) Lactate 2.0 0.7 - 2.0 mmol/L [facility] Blood 06/05/2022 12:1 0 PM CDT 06/05/2022 12:39 PM CDT Champ Osborne MD PhD LAB BLOOD ORDERABLES Final Result [facility] Department [place] [address] * Beta-hydroxybutyrate (06/05/2022 12:10 PM CDT) Beta-Hydroxybut yrate <0.1 0.0 - 0.5 mmol/L [facility] Blood 06/05/2022 12:1 0 PM CDT 06/05/2022 12:34 PM CDT Champ Osborne MD PhD LAB BLOOD ORDERABLES Final Result Performing Organization Address [facility] [place] [address] * (ABNORMAL) POCT glucose (06/05/2022 11:23 AM CDT) Glucose, POC 402(H) 70 - 199 mg/dL [facility] Glucose comment 1 Glu2: RN/MD Notified [facility] Blood 06/05/2022 11:2 3 AM CDT 06/05/2022 11:23 AM CDT Champ Osborne MD PhD LAB POCT ORDERABLES - APRIL CE Final Result Performing Organization Address [facility] [place] [address] * aPTT (06/05/2022 11:04 AM CDT) [facility] aPTT 29 27 - 37 sec [facility] Comment: Interpretive Data Therapeutic heparin range: 60.0 - 94.0 seconds. Based on correlation with therapeutic heparin activity range of 0.3-0.7 Units/mL. Current interpretive data was last revised on 2020. Blood 06/05/2022 11:0 4 AM CDT 06/05/2022 12:39 PM CDT Champ Osborne MD PhD LAB BLOOD ORDERABLES Final Result Performing Organization Address [facility] [place] [address] * (ABNORMAL) POCT glucose (06/05/2022 10:07 AM CDT) Glucose, POC 403(H) 70 - 199 mg/dL [facility] Blood 06/05/2022 10:0 7 AM CDT 06/05/2022 10:07 AM CDT us Champ Osborne MD PhD LAB POCT ORDERABLES - APRIL CE Final Result Performing Organization Address [facility] Co de Phone Number [facility] [place] [address] * (ABNORMAL) POCT glucose (06/05/2022 8:47 AM CDT) Glucose, POC 398(H) 70 - 199 mg/dL [facility] Blood 06/05/2022 8:47 AM CDT 06/05/2022 8:47 AM CDT us Champ Osborne MD PhD LAB POCT ORDERABLES - APRIL CE Final Result Performing Organization Address [facility] Co de Phone Number [facility] [place] [address] * (ABNORMAL) POCT glucose (06/05/2022 8:45 AM CDT) Glucose, POC 458(C) 70 - 199 mg/dL [facility] Glucose comment 1 Glu2: RN/MD Notified [facility] Blood 06/05/2022 8:45 AM CDT 06/05/2022 8:45 AM CDT us Champ Osborne MD PhD LAB POCT ORDERABLES - APRIL CE Final Result Performing Organization Address City/[facility] Co de Phone Number [facility] [place] [address] * (ABNORMAL) POCT glucose (06/05/2022 6:33 AM CDT) Glucose, POC 373(H) 70 - 199 mg/dL [facility] Blood 06/05/2022 6:33 AM CDT 06/05/2022 6:33 AM CDT Champ Osborne MD PhD LAB POCT ORDERABLES - APRIL CE Final Result [facility] Department [place] [address] * IR Outside Reference (06/05/2022 5:59 AM CDT) Impressions [email or web address] - 06/05/2022 5:59 AM CDT These images are for Reference purposes only and have not been reviewed by [facility] Radiology. ??There will be no report generated by a [facility] Radiologist. Narrative [email or web address] - 06/05/2022 5:59 AM CDT EXAMINATION: ??Images For Reference Purposes Only us Carrington Weber MD IMG IR PROCEDURES Final Result Performing Organization Address [facility] Co de Phone Number [email or web address] * XR Outside Reference (06/05/2022 5:57 AM CDT) Impressions [email or web address] - 06/05/2022 5:57 AM CDT These images are for Reference purposes only and have not been reviewed by [facility] Radiology. ??There will be no report generated by a [facility] Radiologist. Narrative [email or web address] - 06/05/2022 5:57 AM CDT EXAMINATION: ??Images For Reference Purposes Only us Carrington Weber MD IMG XR PROCEDURES Final Result Performing Organization Address City/[facility]/ZIP Co de Phone Number [email or web address] * US Outside Reference (06/05/2022 5:56 AM CDT) Impressions [email or web address] - 06/05/2022 5:56 AM CDT These images are for Reference purposes only and have not been reviewed by [facility] Radiology. ??There will be no report generated by a [facility] Radiologist. Narrative [email or web address] - 06/05/2022 5:56 AM CDT EXAMINATION: ??Images For Reference Purposes Only Carrington Weber MD IMG US PROCEDURES Final Result Performing Organization Address City/[facility] Co de Phone Number [email or web address] * CT Body Outside Reference (06/05/2022 5:54 AM CDT) Impressions [email or web address] - 06/05/2022 5:54 AM CDT These images are for Reference purposes only and have not been reviewed by [facility] Radiology. ??There will be no report generated by a [facility] Radiologist. Narrative [email or web address] - 06/05/2022 5:54 AM CDT EXAMINATION: ??Images For Reference Purposes Only Carrington Weber MD IMG CT PROCEDURES Final Result Performing Organization Address [facility] de Phone Number [email or web address] * (ABNORMAL) Troponin I high-sensitivity 2-hour (06/05/2022 4:27 AM CDT) Trop I hs 4,555(C) <=35 ng/L [facility] Comment: Previous critical value noted within 48 hours ago. Interpretive Data For further [facility] resources including the diagnostic algorithm and an aid in interpretation, copy and paste this link: https://bjhlab.testcatalog.org/show/hsTrop-1 Current Interpretive Data last revised 2020. Trop I hs pct delta -1 % [facility] Trop I hs interp Insignificant [facility] Blood 06/05/2022 4:27 AM CDT 06/05/2022 5:21 AM CDT Champ Osborne MD PhD LAB BLOOD ORDERABLES Final Result Performing Organization Address [facility] Co de Phone Number [facility] [place] [address] * (ABNORMAL) aPTT (06/05/2022 4:27 AM CDT) aPTT 23(L) 27 - 37 sec [facility] Comment: Interpretive Data Therapeutic heparin range: 60.0 - 94.0 seconds. Based on correlation with therapeutic heparin activity range of 0.3-0.7 Units/mL. Current interpretive data was last revised on 2020. Blood 06/05/2022 4:27 AM CDT 06/05/2022 5:50 AM CDT Narrative [facility] - 06/05/2022 6:00 AM CDT Baseline prior to heparin initiation Champ Osborne MD PhD LAB BLOOD ORDERABLES Final Result Performing Organization Address [facility] de Phone Number [facility] [place] [address] * Protime-INR (06/05/2022 4:27 AM CDT) PT 10.1 9.2 - 13.5 sec [facility] INR 0.9 0.9 - 1.2 [facility] Comment: Interpretive data Oral anticoagulant therapeutic ranges: Venous thromboembolism prophylaxis or treatment: 2.0-3.0 CARDIOLOGY Standard range: 2.0-3.0 High-intensity range: 2.5-3.5 Refer to indication-specific guidelines for appropriate target ranges for prosthetic heart valve replacement. Current interpretive data was last revised on 2019. Blood 06/05/2022 4:27 AM CDT 06/05/2022 5:50 AM CDT Narrative [facility] - 06/05/2022 6:00 AM CDT Baseline prior to heparin initiation Champ Osborne MD PhD LAB BLOOD ORDERABLES Final Result Performing Organization Address [facility] de Phone Number [facility] [place] [address] * (ABNORMAL) Troponin I high-sensitivity series (baseline, 2hr, 4hr, 6hr) (06/05/2022 2:37 AM CDT) Pathologist [facility] [place] Trop I hs 4,614(C) <=35 ng/L [facility] Comment: Previous critical value noted within 48 hours ago. Interpretive Data For further [facility] resources including the diagnostic algorithm and an aid in interpretation, copy and paste this link: https://bjhlab.testcatalog.org/show/[email or web address] Current Interpretive Data last revised 2020. Blood 06/05/2022 2:37 AM CDT 06/05/2022 3:30 AM CDT us Champ Osborne MD PhD LAB BLOOD ORDERABLES Final Result [facility] Department [place] [address] * POCT glucose (06/04/2022 11:04 PM CDT) [facility] Glucose, POC 191 70 - 199 mg/dL [facility] Blood 06/04/2022 11:0 4 PM CDT 06/04/2022 11:04 PM CDT us Champ Osborne MD PhD LAB POCT ORDERABLES - APRIL CE Final Result Performing Organization Address City/[facility]/ZIP Co de Phone Number [facility] Department [place] [address] * ECG 12 lead (06/04/2022 10:59 PM CDT) [facility] Ventricular Rate EKG/Min 47 BPM [facility] Atrial Rate 47 BPM [facility] NM-Interval (MSEC) 228 ms [facility] QRS-Interval (MSEC) 116 ms [facility] QT-Interval (MSEC) 532 ms [facility] QTc 470 ms [facility] P [place] 39 degrees [facility] R [place] -33 degrees [facility] T [place] 105 degrees [facility] Diagnosis Sinus bradycardia with 1st degree A-V block Left axis deviation Incomplete left bundle branch block Nonspecific ST and T wave abnormality Long QTc When compared with ECG of 03-AUG-2017 00:14, NM interval has increased QTc has increased Rate has decreased by 15 bpm Incomplete left bundle branch block is now Present Criteria for Septal infarct are not Present Confirmed by KENN BILLINGSLEY M.D ([id number]) on 06/06/2022 9:57:10 PM [facility] 06/04/2022 10:5 9 PM CDT 06/06/2022 9:57 PM CDT Result [facility] Catherine Adams MD ECG ORDERABLES Final Resul t [facility] * (ABNORMAL) Hemoglobin A1c (06/04/2022 10:52 PM CDT) Hgb A1C 7.8(H) 4.0 - 5.6 % [facility] Estimated Average Glucose 177 mg/dL [facility] Comment: The ADA recommends reporting an estimated Average Glucose (eAG) with all Hemoglobin A1c results using the equation derived from a study of 507 normal and diabetic adults. ??Minority populations were underrepresented and children were not included. ?? (Diabetes Care 2020; 43(S1): S66-S76). ??The eAG is not equivalent to a fasting glucose. Blood 06/04/2022 10:5 2 PM CDT 06/05/2022 Result [facility] Champ Osborne MD PhD LAB BLOOD ORDERABLES Final Result [facility] [place] [address] * Beta-hydroxybutyrate (06/04/2022 10:52 PM CDT) Pathologist [facility] [place] Beta-Hydroxybut yrate <0.1 0.0 - 0.5 mmol/L [facility] Blood 06/04/2022 10:5 2 PM CDT 06/05/2022 Champ Osborne MD PhD LAB BLOOD ORDERABLES Final Result [facility] Department [place] [address] * (ABNORMAL) Lipid panel (06/04/2022 10:52 PM [...] 2018. LDL, calculated 82 <=129 mg/dL [facility] Comment: Interpretive Data Ages < or [...] revised on 2018. Chol/HDL ratio 4 [facility] Blood 06/04/2022 10:5 2 PM CDT 06/04/2022 11:56 PM CDT Champ Osborne MD PhD LAB BLOOD ORDERABLES Final Result Performing Organization Address City/[facility] de Phone Number [facility] Department [place] [address] * Critical result callback Cardio chemistry (06/04/2022 10:52 PM CDT) Date Notified [id number] [facility] Time Notified 99 [facility] Test name Trop [facility] Called/Read Back Denisse Connelly RN [facility] Credentials RN [facility] Called By dm [facility] Blood 06/04/2022 10:5 2 PM CDT 06/04/2022 11:56 PM CDT Catherine Adams MD LAB BLOOD ORDERABLES Final Result Performing Organization Address [facility] de Phone Number [facility] Department of [place] [address] * (ABNORMAL) eGFR (06/04/2022 10:52 PM CDT) eGFR 6(L) 90 - 130 mL/min/1. 73 m2 [facility] Comment: Interpretive Data Reference Interval Normal [...] Adams MD LAB BLOOD ORDERABLES Final Result [facility] One [facility] Department [place] [address] * Differential, auto (06/04/2022 10:52 PM CDT) Neutrophil abs 6.1 1.7 - 6.5 K/cumm [facility] Imm gran abs 0.1 0.0 - 0.1 K/cumm [facility] Lymphocyte abs 0.8 0.8 - 3.3 K/cumm [facility] Monocyte abs 0.8 0.2 - 0.8 K/cumm [facility] Eosinophil abs 0.0 0.0 - 0.5 K/cumm [facility] Basophil abs 0.0 0.0 - 0.1 K/cumm [facility] Neutrophil pct 79.1 % [facility] Comment: Interpretive Data Percent cell count reference ranges are not reported, since discordance with absolute values may lead to misinterpretation of CBC data. Current Interpretive Data was last revised on 2017. Imm gran pct 0.6 % [facility] Comment: Interpretive Data Percent cell count reference ranges are not reported, since discordance with absolute values may lead to misinterpretation of CBC data. Current Interpretive Data was last revised on 2017. Lymphocyte pct 10.1 % [facility] Comment: Interpretive Data Percent cell count reference ranges are not reported, since discordance with absolute values may lead to misinterpretation of CBC data. Current Interpretive Data was last revised on 2017. Monocyte pct 10.2 % [facility] Comment: Interpretive Data Percent cell count reference ranges are not reported, since discordance with absolute values may lead to misinterpretation of CBC data. Current Interpretive Data was last revised on 2017. Eosinophil pct 0.0 % [facility] Comment: Interpretive Data Percent cell count reference ranges are not reported, since discordance with absolute values may lead to misinterpretation of CBC data. Current Interpretive Data was last revised on 2017. Basophil pct 0.0 % [facility] Comment: Interpretive Data Percent cell count reference ranges are not reported, since discordance with absolute values may lead to misinterpretation of CBC data. Current Interpretive Data was last revised on 2017. Blood 06/04/2022 10:5 2 PM CDT 06/04/2022 11:56 PM CDT us Catherine Adams MD LAB BLOOD ORDERABLES Final Result [facility] One [facility] Department [place] [address] * (ABNORMAL) Troponin I high-sensitivity (06/04/2022 10:52 [...] Adams MD LAB BLOOD ORDERABLES Final Result [facility] One [facility] [place] [address] * (ABNORMAL) Pro B-type natriuretic peptide (06/04/2022 [...] Adams MD LAB BLOOD ORDERABLES Final Result [facility] One [facility] [place] [address] * (ABNORMAL) CBC with auto differential (06/04/2022 10:52 PM CDT) WBC 7.7 3.8 - 9.9 K/cumm [facility] Hgb 9.5(L) 13.0 - 17.5 g/dL [facility] Hct 27.2(L) 38.9 - 50.3 % [facility] Plt 195 150 - 400 K/cumm [facility] MPV 11.3 9.1 - 12.3 fL [facility] RBC 3.10(L) 4.30 - 5.80 M/cumm [facility] MCV 87.7 81.3 - 96.4 fL [facility] MCH 30.6 27.1 - 33.3 pg [facility] MCHC 34.9 32.3 - 35.7 g/dL [facility] RDW CV 12.5 11.1 - 14.9 % [facility] RDW SD 40.2 35.7 - 48.1 fL [facility] NRBC abs 0.00 0.00 - 0.01 K/cumm [facility] Blood 06/04/2022 10:5 2 PM CDT 06/04/2022 11:56 PM CDT us Catherine Adams MD LAB BLOOD ORDERABLES Final Result [facility] One [facility] Department [place] [address] * (ABNORMAL) Comprehensive metabolic panel (06/04/2022 10:52 PM CDT) Sodium 129(L) 135 - 145 mmol/L [facility] Potassium, pl 4.0 3.3 - 4.9 mmol/L [facility] Chloride 88(L) 97 - 110 mmol/L [facility] CO2 24 22 - 32 mmol/L [facility] Anion gap 17(H) 2 - 15 mmol/L [facility] BUN 82(H) 8 - 25 mg/dL [facility] Creatinine 8.95(H) 0.80 - 1.30 mg/dL [facility] Glucose 185 70 - 199 mg/dL [facility] Comment: Interpretive Data Fasting glucose [...] 2017. Calcium 8.6 8.5 - 10.3 mg/dL [facility] Bilirubin, total 0.5 0.1 - 1.2 mg/dL [facility] Protein, pl 6.5 6.5 - 8.5 g/dL [facility] Albumin 3.6 3.5 - 5.0 g/dL [facility] Alk phos 115 40 - 130 Units/L [facility] ALT 37 7 - 55 Units/L [facility] AST 53(H) 10 - 50 Units/L [facility] Blood 06/04/2022 10:5 2 PM CDT 06/04/2022 11:56 PM CDT Catherine Adams MD LAB BLOOD ORDERABLES Final Result [facility] One [facility] Department [place] [address] * XR Chest 1 View (06/04/2022 10:50 [...] Diagnosis Diagnosis unknown Coronary artery disease involving chitina heart without angina pectoris, unspecified vessel or lesion type Unstable angina ([facility] ([facility]) Intermediate coronary syndrome Hyperlipidemia, unspecified hyperlipidemia type Hypotension, unspecified hypotension type Acute hypoxemic respiratory failure (HCC) Angina pectoris (HCC) Other and unspecified angina pectoris End stage renal disease (CMS/HCC) (HCC) End stage renal disease Angina pectoris (HCC) Other and unspecified angina pectoris Acute hypoxemic respiratory failure (HCC) CAD (coronary artery disease) Coronary atherosclerosis of unspecified type of vessel, chitina or graft Unstable angina ([facility]) ([facility]) Intermediate coronary syndrome Hypotension, unspecified hypotension type [...] Mon06/22/22 at 1930 Given 06/27/2022 5:47 PM [employer] 1,000 mg albuterol HFA (PROVENTIL HFA,VENTOLIN HFA,PROAIR HFA) 90 mcg/actuation inhaler 2 puff 2 puff, inhalation, Every 6 hours PRN (certified respiratory therapist), wheezing, shortness of breath, Starting on Mon06/05/22 at 0229 Given 06/15/2022 2:50 AM CDT 2 puffs aspirin chewable tablet 81 mg 81 mg, oral, Daily, First dose (after last modification) on [place] 06/23/22 at 0900 Given 06/29/2022 8:23 AM [employer] 81 mg Given 06/28/2022 8:56 AM [employer] 81 mg Given 06/27/2022 8:17 AM [employer] 81 mg atorvastatin (LIPITOR) tablet 80 mg 80 mg, oral, Daily, First dose (after last modification) on Mon06/23/22 at 0900 Given 06/29/2022 8:23 AM [employer] 80 mg Given 06/28/2022 8:56 AM [employer] 80 mg Given 06/27/2022 8:18 AM [employer] 80 mg calcitRIOL (ROCALTROL) capsule 0.25 mcg 0.25 mcg, oral, Daily, First dose on Mon06/22/22 at 1000 Given 06/29/2022 8:23 AM [employer] 0.25 mcg Given 06/28/2022 8:56 AM [employer] 0.25 mcg Given 06/27/2022 8:17 AM [employer] 0.25 mcg calcium acetate(phosphat bind) (PHOSLO) capsule 667 mg 667 mg, oral, 4 times daily, First dose on [place] 06/05/22 at 0800, Take with food Given 06/29/2022 12:34 PM [employer] 667 mg Given 06/29/2022 8:23 AM [employer] 667 mg Given 06/28/2022 9:00 PM [employer] 667 mg clopidogreL (PLAVIX) tablet 75 mg 75 mg, oral, Daily, First dose (after last modification) on [place] 06/23/22 at 0900 Given 06/29/2022 8:23 AM [employer] 75 mg Given 06/28/2022 8:56 AM [employer] 75 mg Given 06/27/2022 8:18 AM [employer] 75 mg dextrose (D10W) 10% bolus 250 [...] 06/23/22 at 0900 Given 06/29/2022 8:23 AM [employer] 10 mg Given 06/28/2022 8:56 AM [employer] 10 mg Given 06/27/2022 8:18 AM [employer] 10 mg fentaNYL (SUBLIMAZE) preservative free injection [...] ProphylaxisIndications:Infec tion Prophylaxis Given 06/28/2022 8:05 PM [employer] glucagon injection 1 mg 1 mg, intramuscular, [...] Vein Thrombosis Prevention Given 06/29/2022 12:34 PM [employer] 5,000 Units Left Lower Abdomen Given 06/29/2022 5:01 AM [employer] 5,000 Units L eft Lower Abdomen Given 06/28/2022 9:00 PM [employer] 5,000 Units L eft Upper Abdomen insulin [...] Self Administered Via Pump 06/29/2022 12:34 PM [employer] 8 Units Left Lower Abdomen Self Administered Via Pump 06/29/2022 8:27 AM [employer] 7 Units Left Lower Abdomen Self Administered Via Pump 06/28/2022 5:55 PM [employer] 4.3 Unit s Left Lower Abdomen isosorbide mononitrate ER (IMDUR) extended release tablet 30 mg 30 mg, oral, Daily, First dose on Mon06/24/22 at 1715, Tablets that are scored may be split, but do not crush, chew, dissolve, open or otherwise manipulate tablet/capsule. Given 06/29/2022 8:22 AM [employer] 30 m g Given 06/28/2022 8:56 AM [employer] 30 mg Given 06/27/2022 8:18 AM [employer] 30 mg lidocaine (LIDODERM) 5 % patch [...] 06/25/22 at 0900 Given 06/29/2022 8:22 AM [employer] 12.5 mg Given 06/28/2022 8:56 AM [employer] 12.5 mg Given 06/27/2022 8:17 AM [employer] 12.5 mg metoprolol tartrate (LOPRESSOR) immediate release tablet 25 mg 25 mg, oral, 2 times daily, First dose (after last modification) on 06/27/22 at 0900 Given 06/29/2022 8:22 AM [employer] 25 mg Given 06/28/2022 9:00 PM [employer] 25 mg Given 06/28/2022 8:56 AM [employer] 25 mg nitroglycerin (NITROSTAT) sublingual tablet 0.4 [...] GI BleedIndications:GI Bleed Given 06/29/2022 8:22 AM [employer] 40 mg Given 06/28/2022 8:56 AM [employer] 40 mg Given 06/27/2022 8:18 AM [employer] 40 mg polyvinyl alcohol-povidone (REFRESH CLASSIC) 1.4-0.6 % ophthalmic solution 1 drop 1 drop, each eye, 4 times daily, First dose on [place] 06/16/22 at 2100 Given 06/29/2022 12:34 PM [employer] 1 drop Given 06/29/2022 8:22 AM [employer] 1 drop Given 06/28/2022 9:01 PM [employer] 1 drop ramelteon (ROZEREM) tablet 8 mg [...] Recently Administered Medications Times are shown in [employer]. 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
--- OUTSIDE RECORDS SUMMARY | 2024-09-07 23:40 | XMS_ITS | Encounter Summary ---
Author Organization [facility] Healthcare Address [address] [place] [address] Care Team Providers Care Piped Pocket Machine Operator Name Role Phone Aditya Castro MD Primary Care Provider [phone] Encounter Details Date Type Department Care Team (Late st Contact Info) Description 06/08/[address] 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 Gender Identity Not on file Sexual Orientation Not on file documented as of this encounter Plan of Treatment Not on file documented as of this encounter Procedures Procedure Name Priority Date/Time Associated Diagnosis Comments PREPARE RBC STAT 06/17/2022 10:25 PM CDT documented in this encounter Results * Prepare RBC (06/17/2022 10:25 PM CDT) Product code [id number] [facility] Unit Number [id number] N [facility] Product Blood Type APOS [facility] Dispense Status PRESUMED TRANSFUSED [facility] Blood 06/17/2022 10:2 5 PM CDT 06/17/2022 10:25 PM CDT Narrative [facility] - 06/21/2022 12:50 AM CDT Are special requirements needed? (All products are leukoreduced and CMV- safe)- >No Date required:-[id number] LRRBC # of [id number] Reasons:-Hgb <7 g/dL} us Tyra De La Torre MD BLOOD BANK PRODUCT ORDERABLES F inal Result [facility] One [facility] Department [place] [address] documented in this encounter Visit Diagnoses Diagnosis Status post insertion of drug eluting coronary artery stent- Primary documented in this encounter Care Teams Piped Pocket Machine Operator Relationship Specialty Start Date End Date Aditya Castro MD [address] [facility] [place] [address] PCP - General 10/17/19 documented as of this encounter
--- OUTSIDE RECORDS SUMMARY | 2024-09-07 23:42 | XMS_ITS | Encounter Summary ---
Author Organization [facility] Address [address] [facility] [address] [place] [id number] Care Team Providers Care Instructional Systems Designer Name Role Phone Aditya Castro MD Primary Care Provider [phone] Encounter Details Date Type Department Care Team (Late st Contact Info) Description 12/09/2021 Orders Only [facility] Cardiology [address] [facility] [address] [facility] [address] [place] [address] Abelardo Petit MD [address] [facility] [address] [place] [address] Social History Tobacco Use Types [...] on file 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
--- OUTSIDE RECORDS SUMMARY | 2024-09-07 23:42 | XMS_ITS | Encounter Summary ---
Author Organization [facility] Address [address] [address] Care Team Providers Care Airplane Pilot Crop Dusting Name Role Phone Aditya Castro MD Primary Care Provider [phone] Encounter Details Date Type Department Care Team (Late st Contact Info) Description 06/03/2022 Orders Only [facility] Cardiology [address] [facility] [address] [facility] [address] [place] [address] Abelardo Petit MD [address] [facility] [address] [facility] [address] [place] [address] Social History Tobacco Use Types [...] on file 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
--- OUTSIDE RECORDS SUMMARY | 2024-09-07 23:42 | XMS_ITS | Encounter Summary ---
Author Organization [facility] Address [address] [place] [address] Phone Care Team Providers Care Experimental Psychologist Name Role Phone Aditya Castro MD Primary Care Provider [phone] Encounter Details Date Type Department Care Team (Late st Contact Info) Description 06/06/2022 Telephone [facility] Cardiology [address] [facility] 8th [place] [address] [place] [address] Kalyn Saba Social History Tobacco [...] file Legal Sex Male 3:42 AM RN MATERNAL CHILD Gender Identity Not on file Sexual Orientation Not on file documented as of this encounter Miscellaneous Notes * Telephone Encounter - Faye Aleman B.A. - 06/06/2022 12:29 PM CDT [facility] & * Telephone Encounter - Kalyn Saba - 06/06/2022 12:22 PM CDT CARDIOLOGY CONSULT 06/06/2022 RECEIVED BY: Kalyn Saba TYPE OF CONSULT: general CALLER'S NAME:[facility] CALLER'S PAGER:[phone] PATIENT'S NAME: Juvenal Daigle Jr. : 1970 CAMPUS: [facility] PATIENT'S LOCATION:[facility] REASON FOR CONSULT: N-STEMI ATTENDING PHYSICIAN: Vincenzo Akers Note: Interventional cardiology is aware of patient documented in this encounter Plan of Treatment Not on file documented as of this encounter Visit Diagnoses Not on filedocumented in this encounter Care Teams Experimental Psychologist Relationship Specialty Start Date End Date Aditya Castro MD [address] [facility] [place] [address] PCP - General 10/17/19 documented as of this encounter
--- OUTSIDE RECORDS SUMMARY | 2024-09-07 23:42 | XMS_ITS | Encounter Summary ---
Author Organization [facility] Healthcare Address [address] [place] [address] Care Team Providers Care Wire Technician Name Role Phone Aditya Castro MD Primary Care Provider [phone] Reason for Visit * Auth/Cert Specialty Diagnoses / Procedures Referred By Contac t Referred To Contact Diagnoses Angina pectoris (HCC) NON STEMI CARDS FIRM, PD, covid neg Procedures N/A Referral ID Status Reason Start Date Expiration Date Visits Re quested Visits Authorized [id number] 1 1 Encounter Details Date Type Department Care Team (Late st Contact Info) Description 06/07/2022 12:00 PM CDT - 06/07/2022 2:30 PM CDT Surgery [facility] [address] [place] [address] Champ Osborne MD PhD [address] [place] [address] PCI MARIELLA MAJOR CORONARY [id number] - [id number] Surgery Details Date/Time Status Location OR Service Patient Class Case Class Case Type Trauma Case? 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 CCL 01 Cardiovascular Inpatient Time Sensitive - 1 Week Panel 1 Procedure LRB Anes Op Region Wound Class Comments PCI MARIELLA MAJOR CORONARY [id number] - [id number] N/A Conscious Sedation CIRC Surgeon Surgeon Role Service Panel Champ Osborne MD PhD Primary Cardiovascular 1 Fernnado Torres MD Fellow Cardiovas cular 1 Case Notes Transfer in from [facility] documented in this encounter Social History Tobacco [...] file Legal Sex Male 3:42 AM MANAGER GALLERY Gender Identity Not on file Sexual Orientation [...] Care Physician at Discharge: Aditya Castro MD [phone] Admission Date: 06/04/2022 Discharge Date: 06/29/2022 Admission Location: [facility] Problems/Diagnoses: Principal Problem: NSTEMI (non-ST elevated [...] gout, BEN on CPAP initially presented to [facility] for n/v andchest pain, transferred to [facility] for LHC/PCI, now presenting to CCU s/p complex PCI with impella and intubated. At the OSH he presented with 3d generalized weakness, chills, ROONEY, n/v, chest pain relieved by sublingual ntg. His labs were notable for trop 1.0-->1.09-->0.729, BNP 23069. He had a CT CAP showing cholelithiasis [...] circumflex as optimal treatment, prompting transfer to [place]. He arrived at [place] 06/05. EKG showed sinus bradycardia, 1st deg [...] * NSTEMI (non-ST elevated myocardial infarction) (CMS/HCC) ([facility]) With interventions described above. Post-transfer and post-cath, [...] failure with reduced ejection fraction) ([facility]) He developed cardiogenic shock requiring impella in the setting of cath c/b AHRF 2/2 pulmonary edema. Post-cath, TTE demonstrated recovered EF 65% with grade I diastolic dysfunction. Volume was managed with CRRT in ICU, then by resumption of PD on the medical floor. In discussion with nephrology, low dose losartan was started for GDMT in addition to metoprolol. ESRD (end stage renal disease) ([facility]) ([facility]) Renal consulted on admission with history of ESRD on PD. While in ICU, temporary dialysis catheter was placed to facilitate CRRT for volume removal. Upon transfer to the floor, PD was continued and tolerated well. He was continued on his home vitamins for renal bone mineral disease and phoslo. Trialysis removed 06/25. Type 1 diabetes mellitus ([facility]) Prior to admission, his A1c was well [...] REMOVE PERC ARTERIAL VAD (IMPELLA), DIFFERENT SESSION [id number] Other Procedures: Pertinent Test Results: See hospital [...] one tablet three times daily Outpatient Follow-Up: GER GALLERY documented in this encounter Discharge Instructions * Discharge Instructions* Frank Bowers MD - 06/29/2022 9:19 AM MANAGER GALLERY Mr. Adelia Garvin, You were admitted to the hospital for chest pain, and you were seen by our cardiology specialists where you received a new stent placed. As you have improved and are tolerating your insulin pump wellas well as your dialysis, you are stable to be discharged to the rehab facility. Continue Omnipod 5 insulin pump with [employer] G6 CGM at home settings: TIME BASAL [...] yearly or sooner as indicated by your reporting specialist Pending results for primary service or primary care physician to follow up on: None at time of discharge Follow Up Plan: Follow up with endocrinology near his home 1-2 weeks after discharge to reassess glycemic management and adjust insulin pump settings as needed. GER GALLERY GER GALLERY documented in this encounter Medications at Time [...] Means Destination Discharge to an Rehab facility [facility] documented in this encounter Progress Notes * Elsie Gonzalez RN - 06/29/2022 11:30 AM CST 06/06/22 1203 Discharge Summary Chart reviewed For Medical Necessity Does patient have a planned readmission to hospital planned? No Discharge Disposition Home;Inpatient (Acute) Rehab Hospital Specify Facility [facility] Facility Contact Number Contact- Minerva Hurt- [phone] for report- [phone] fax [phone] Equipment/Provider Needs No Home Needs Identified Discharge Additional Assistance Does the patient need discharge transport arranged? No (family to transport to [facility]) Post Discharge Care Provider Post Discharge Care Plan DC Summary and post acute care report has been faxed to next level of careprovider (see Follow Up Providers) Patient is medically stable to discharge home today. Patient will have transportation provided by the patient's brother. Patient instructed to f/u with PCP after release from [facility]. No additional needs noted at this time. GER GALLERY GER GALLERY * Frank Bowers MD - 06/29/2022 10:12 AM CST Daily Progress Note Division of Hospital Medicine Name: Adelia Garvin Jr. Today: June 29, 2022 : 1970 Age: 51 y.o. male Admit: 06/04/2022 Bed: [id number] Subjective Chief complaint: NSTEMI Interval History: Pt [...] 06/29/2022 0815 Gross per 24 hour Intake 64187 ml Output 91696 ml Net -664 ml Physical Exam Constitutional: [...] * NSTEMI (non-ST elevated myocardial infarction) (CMS/HCC) ([facility]) Assessment & Plan With recurrent chest pain [...] rehab today ESRD (end stage renal disease) ([facility]) ([facility]) Assessment & Plan - Renal consulted, s/p CRRT in the ICU now back on PD. Tolerated well and nephrology following - Trialysis catheter removed - Continue vitamins for renal bone mineral disease. Type 1 diabetes mellitus ([facility]) Assessment & Plan A1c well controlled on [...] start of peritoneal dialysis session Atrial fibrillation ([facility]) ([facility]) Assessment & Plan Converted to NSR overnight [...] including recommendations regarding insulin pump at discharge GER GALLERY GER GALLERY * Janelle Romero, OT - 06/29/2022 9:30 [...] not assigned to this patient, please call [phone]. 06/29/22 0930 General Session Type Treatment OT [...] demonstrate modified independence/independence with ADL task completion. GER GALLERY * Kip Julian PT - 06/29/2022 8:53 AM CST Physical Therapy 06/29/22 0853 General PT Missed Visit Reason Patient declined GER GALLERY * Frank Bowers MD - 06/28/2022 3:30 PM CST Daily Progress Note Division of Hospital Medicine Name: Adelia Garvin Jr. Today: June 28, 2022 : 1970 Age: 51 y.o. male Admit: 06/04/2022 Bed: [id number] Subjective Chief complaint: NSTEMI Interval History: Pt [...] 06/28/2022 1300 Gross per 24 hour Intake 71550 ml Output 23355 ml Net -851 ml Physical Exam Constitutional: [...] Resolved. * NSTEMI (non-ST elevated myocardial infarction) (CMS/[facility]) ([facility]) Assessment & Plan With recurrent chest pain [...] been accepted ESRD (end stage renal disease) ([facility]) ([facility]) Assessment & Plan - Renal consulted, s/p CRRT in the ICU now back on PD. Tolerated well and nephrology following - Trialysis catheter removed - Continue vitamins for renal bone mineral disease. Type 1 diabetes mellitus ([facility]) Assessment & Plan A1c well controlled on [...] increase NPH 45u before PD Atrial fibrillation ([facility]) ([facility]) Assessment & Plan Converted to NSR overnight [...] failure with reduced ejection fraction) ([facility]) Assessment & Plan C/b cardiogenic shock requiring [...] and trend Hb. Acute hypoxemic respiratory failure ([facility]) Assessment & Plan Secondary to ACS and flash pulmonary edema, since resolved and extubated on 06/19. Patient passed barium swallow on 06/21. GER GALLERY * Shelbie Garcia, RD - 06/28/2022 2:38 [...] Diabetes mellitus type I (HCC) Dialysis patient ([facility]) (HCC) ESRD on dialysis ([facility]) ([facility]) GERD (gastroesophageal reflux disease) Hyperlipidemia Hypertension [...] of Weight Used for Estimated Protein : [place] Protein Needs Based on g/k.5 Total Protein [...] 06/28/2022 1300 Gross per 24 hour Intake 22875 ml Output 07110 ml Net -851 ml Gastrointestinal Gastrointestinal (WDL): [...] Comments: Heart Healthy Diet Question Answer Comment ([facility]) Diet type Restricted Fat / Sodium Restriction: [...] of his insulin pump. Pt seen by FIRE CREW SPECIALIST today. Can continue on regular textured [...] Stool patterns, Weight changes Shelbie Garcia RD [phone] GER GALLERY * Carey East MD - 06/27/2022 4:57 PM CST Daily Progress Note Division of Hospital Medicine Name: Adelia Garvin Jr. Today: June 27, 2022 : 1970 Age: 51 y.o. male Admit: 06/04/2022 Bed: [id number] Subjective Chief complaint: CAD s/p PCI, T1DM, [...] 06/27/2022 0745 Gross per 24 hour Intake 78548 ml Output 71110 ml Net -1949 ml Physical Exam Constitutional: [...] transferred to the floor, improving. Atrial fibrillation ([facility]) ([facility]) Assessment & Plan Converted to NSR overnight [...] failure with reduced ejection fraction) ([facility]) Assessment & Plan C/b cardiogenic shock requiring impella in the setting of cath and AHRF 2/2 pulmonary edema, now resolved. TTE demonstrating recovered EF 65% with grade I diastolic dysfunction. - metop as above - continue low dose losartan 12.5mg daily, ok per nephro - volume management per PD ESRD (end stage renal disease) ([facility]) ([facility]) Assessment & Plan - Renal consulted, s/p CRRT in the ICU now back on PD. - Continue vitamins for renal bone mineral disease - continue phoslo Type 1 diabetes mellitus ([facility]) Assessment & Plan A1c well controlled on [...] PD * NSTEMI (non-ST elevated myocardial infarction) ([facility]) ([facility]) Assessment & Plan With recurrent chest pain [...] recs, CM aware and searching for facilities GER GALLERY * Arleen Andre MD - 06/27/2022 3:50 PM CST ASSESSMENT AND RECOMMENDATIONS ESRD: He is doing well on the current PD regimen. Ultrafilters approximately 2912-7937 ml/day. Continue current regimen Hypokalemia: Start Kcl [...] (mL): 785 mL Fill Volume In (mL): 17200 mL Effluent Volume Out (mL): 71778 ml Balance This Exchange (mL): 1944 mL [...] edema I/O last 2 completed shifts: In: 16517 [P.O.:440; Other:92422] Out: 10996 [Urine:300; Other:37367] I have reviewed current medications and the [...] FERRITIN 2,062 (H) 06/07/2022 Arleen Andre MD home care specialist Division of Nephrology GER GALLERY * So Lawrence, OT - 06/27/2022 9:37 [...] not assigned to this patient, please call [phone]. 06/27/22 0937 General Session Type Treatment OT [...] demonstrate modified independence/independence with ADL task completion. GER GALLERY * Carlos Dupree MD - 06/26/2022 4:13 PM CST Endocrinology & Diabetes Progress Note Patient: Adelia Garvin Jr., 51 y.o. male (: 1970) Room: [place] [id number] ( ) LOS: 22 Adelia Garvin Jr. [...] labs, imaging, and diagnostics independently reviewed in [facility] and commented on below. Lab [...] agitation. 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, complicated by ESRD on PD, CAD s/p PCI, CHF - HbA1c 7.4% - Uses Omnipod and Dexcom G6 at home, not currently on this- doesn't have the supplies -On significantly higher basal rates on pump at night due to peritoneal dialysis -home settings: Basal rate 0330 >>1.7 0800 >> 0.8 2000 >> 5.8 ICR1:6.5 ISF1:25 [id number] TIA 4 Inpatient glycemic management complicated by [...] ## Discharge Planning - Follow-up with home skiver counter -- Carlos Dupree MD Endocrinology, Metabolism, & Lipid Research Contact Info: New Consults: [phone]) General Endocrine (Non-Diabetes): [phone] (Check 'Treatment Team' assignment for Diabetes 1 vs 2 vs 3) Diabetes 1: Diabetes Fellow: [phone] Diabetes 2: Dora Delarosa, OPTICAL INSTRUMENT INSPECTOR: [phone] Diabetes 3: See Treatment Team Provider (or call Dora Delarosa, above) Diabetes After-Hours & Weekends: Diabetes Fellow GER GALLERY * Carey East MD - 06/26/2022 12:39 PM CST Daily Progress Note Division of Hospital Medicine Name: Adelia Garvin Jr. Today: June 26, 2022 : 1970 Age: 51 y.o. male Admit: 06/04/2022 Bed: [id number] Subjective Chief complaint: CAD s/p PCI, T1DM, [...] 06/26/2022 1110 Gross per 24 hour Intake 72799 ml Output 93639 ml Net -1847 ml Physical Exam Constitutional: [...] transferred to the floor, improving. Atrial fibrillation ([facility]) ([facility]) Assessment & Plan Converted to NSR overnight [...] failure with reduced ejection fraction) ([facility]) Assessment & Plan C/b cardiogenic shock requiring impella in the setting of cath and AHRF 2/2 pulmonary edema, now resolved. TTE demonstrating recovered EF 65% with grade I diastolic dysfunction. - metop as above - continue low dose losartan 12.5mg daily, ok per nephro - volume management per PD ESRD (end stage renal disease) ([facility]) ([facility]) Assessment & Plan - Renal consulted, s/p [...] PD * NSTEMI (non-ST elevated myocardial infarction) ([facility]) ([facility]) Assessment & Plan With recurrent chest pain. [...] acute rehab per PT recs, CM aware GER GALLERY * Carey East MD - 06/25/2022 11:51 AM CDT Daily Progress Note Division of Hospital Medicine Name: Adelia Garvin Jr. Today: June 25, 2022 : 1970 Age: 51 y.o. male Admit: 06/04/2022 Bed: [id number] Subjective Chief complaint: CAD s/p PCI, T1DM, [...] 06/25/2022 0600 Gross per 24 hour Intake 15951 ml Output 13235 ml Net -2404 ml Physical Exam Constitutional: [...] failure with reduced ejection fraction) ([facility]) Assessment & Plan C/b cardiogenic shock requiring impella in the setting of cath and AHRF 2/2 pulmonary edema, now resolved. TTE demonstrating recovered EF 65% with grade I diastolic dysfunction. - metop as above - start low dose losartan 12.5mg daily today, ok per nephro - volume management per PD ESRD (end stage renal disease) ([facility]) ([facility]) Assessment & Plan - Renal consulted, s/p CRRT in the ICU now back on PD. - Trialysis catheter still in place --> removed today - Continue vitamins for renal bone mineral disease. Type 1 diabetes mellitus ([facility]) Assessment & Plan A1c well controlled on [...] today * NSTEMI (non-ST elevated myocardial infarction) ([facility]) ([facility]) Assessment & Plan With recurrent chest pain. [...] decrease to daily Acute hypoxemic respiratory failure ([facility]) Assessment & Plan Secondary to ACS and flash pulmonary edema, since resolved and extubated on 06/19. Patient passed barium swallow on 06/21. Cardiogenic shock ([facility]) Assessment & Plan Secondary to NSTEMI, s/p [...] mobility Prior Function Prior Function Level of [place]: Independent with ADLs, Independent functional transfers, Independent [...] (increased time required) Compliance/Behavior: Easy to engage Duncan Cognitive Assessment (MOCA) MOCA Version: Version 3 [...] not assigned to this patient, please call [phone]. * Carye East MD - 06/24/2022 4:30 PM CDT Daily Progress Note Division of Hospital Medicine Name: Adelia Garvin Jr. Today: June 24, 2022 : 1970 Age: 51 y.o. male Admit: 06/04/2022 Bed: [id number] Subjective Chief complaint: CAD s/p PCI, T1DM, [...] 06/24/2022 0536 Gross per 24 hour Intake 32709 ml Output 00746 ml Net -347 ml Physical Exam Constitutional: [...] with new chest pressure today. Atrial fibrillation (CMS/[facility]) ([facility]) Assessment & Plan Currently rated controlled with [...] failure with reduced ejection fraction) ([facility]) Assessment & Plan C/b cardiogenic shock requiring impella in the setting of cath and AHRF 2/2 pulmonary edema, now resolved. TTE demonstrating recovered EF 65% with grade I diastolic dysfunction. - metop as above - not on NICOLÁS/ARB due to ESRD, d/w nephro - volume management per PD ESRD (end stage renal disease) (CMS/HCC) ([facility]) Assessment & Plan - Renal consulted, s/p [...] Weakness, N/V, diarrhea, chest pain. Resp failure, [id number]: S/p complex PCI and Impella placement for [...] No Prior Function Prior Function Level of [place]: Independent functional transfers, Independent with ambulation Lives [...] treatment team and contact the PT or FIGHTING VEHICLE INFANTRYMAN currently assigned to this patient. If a physical therapy clinician is not assigned to this patient, please call [phone]. * Carey East MD - 06/23/2022 4:37 PM CDT Daily Progress Note Division of Hospital Medicine Name: Adelia Garvin Jr. Today: June 23, 2022 : 1970 Age: 51 y.o. male Admit: 06/04/2022 Bed: [id number] Subjective Chief complaint: CAD s/p PCI, T1DM, [...] 06/23/2022 0625 Gross per 24 hour Intake 23884 ml Output 09031 ml Net -2575 ml Physical Exam Constitutional: [...] EKG/Min 100 BPM Atrial Rate 100 BPM MI-Interval (MSEC) 182 ms QRS-Interval (MSEC) 106 ms QT-Interval (MSEC) 380 ms QTc 490 ms R [place] -47 degrees T [place] 105 degrees Diagnosis Sinus rhythm with Premature [...] since removed on 06/10. Resolved. Atrial fibrillation ([facility]) ([facility]) Assessment & Plan Currently rated controlled with metoprolol, CHADsVASc of 4 not on anticoagulation prior to admission. - cardiology consulted - metop as elsewhere Acute on chronic HFrEF (heart failure with reduced ejection fraction) ([facility]) Assessment & Plan C/b cardiogenic shock requiring impella in the setting of cath and AHRF 2/2 pulmonary edema, now resolved. TTE demonstrating recovered EF 65% with grade I diastolic dysfunction. - consolidate metoprolol today: 25 q6h --> 50mg BID - not on NICOLÁS/ARB due to ESRD, will d/w nephro - volume management per PD ESRD (end stage renal disease) ([facility]) ([facility]) Assessment & Plan - Renal consulted, s/p CRRT in the ICU now back on PD. - Trialysis catheter still in place --> will remove tomorrow - Continue vitamins for renal bone mineral disease. Anemia Assessment & Plan Stable, likely 2/2 anemia from ESRD, no evidence of bleeding. Underwent CT c/a/p without internal hematoma. - Monitor and trend Hb. Acute hypoxemic respiratory failure ([facility]) Assessment & Plan Secondary to ACS and flash pulmonary edema, since resolved and extubated on 06/19. Patient passed barium swallow on 06/21. Type 1 diabetes mellitus ([facility]) Assessment & Plan A1c well controlled on [...] use * NSTEMI (non-ST elevated myocardial infarction) ([facility]) ([facility]) Assessment & Plan With recurrent chest pain. [...] gout, BEN on CPAP initially presented to [facility] for generalized weakness, n/v, diarrhea, and chest pain now being transferred for LHC/PCI 06/06. Objective Past Medical History: Diagnosis Date CAD (coronary artery disease) Chest pain Diabetes mellitus (HCC) Diabetes mellitus type I (HCC) Dialysis patient ([facility]) (HCC) ESRD on dialysis ([facility]) (HCC) GERD (gastroesophageal reflux disease) Hyperlipidemia Hypertension [...] of Weight Used for Estimated Protein : [place] Protein Needs Based on g/k.5 Total Protein [...] 06/23/2022 0625 Gross per 24 hour Intake 83339 ml Output 03755 ml Net -2575 ml Gastrointestinal Gastrointestinal (WDL): [...] Comments: Heart Healthy Diet Question Answer Comment ([facility]) Diet type Restricted Fat / Sodium Restriction: [...] Supplement tolerance Ronny Vasquez MS RDN LD Cutter Out RD number [phone] * Luiz Lewis DO - 06/22/2022 8:22 [...] at 06/22/20221944 Gross per 24 hour Intake 88178 ml Output 73237 ml Net -2209 ml Constitutional - chronically [...] Impella since removed on 06/10. Atrial fibrillation ([facility]) ([facility]) Assessment & Plan -Currently rated controlled with metoprolol, CHADsVASc of 4 not on anticoagulation prior to admission. -Follow cardiology for initiation of AC. Acute on chronic HFrEF (heart failure with reduced ejection fraction) ([facility]) Assessment & Plan -With acute exacerbation complicated by pulmonary edema since resolved. -Repeat TTE following Impella removal showed recovered EF of 65% with grade I diastolic dysfunction. -Continue metoprolol tartrate, start GDMT per cardiology. ESRD (end stage renal disease) (CMS/HCC) ([facility]) Assessment & Plan -Renal consulted, s/p CRRT [...] aspirin, Plavix and atorvastatin. Luiz Lewis DO [facility] * Tyra De La Torre MD - 06/22/2022 4:17 PM CDT CCU DAILY PROGRESS Patient: Adelia Garvin Jr. Room: [place] [address] [address] Date: 06/22/2022 Summary Statement: Adelia Garvin Jr. is a 51 y.o. male with a history of CHF (EF 50% 2016), Afib (not on AC), HTN, CAD s/p stent 04/06 and 3 stent 12/07, T1DM (insulin pump at home), ESRD on PD, HLD, GERD, hyperparathyroidism, DDD, OA, gout, BEN on CPAP initially presented to OSH for n/v and chest pain, transferred to [facility] for LHC/PCI, who presented to CCU s/p [...] 06/22/2022 0500 Gross per 24 hour Intake 68995 ml Output 26143 ml Net -1759 ml Ventilator Settings: N/a [...] gout, BEN on CPAP initially presented to [facility] for n/v and chest pain, transferred to [facility] for LHC/PCI, who presented to the CCU [...] 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 #Nutrition - continue tube feeds - FIRE CREW SPECIALIST eval - remove NGT and restart [...] HEME/ONC #Anemia Hgb 9.5 on admission to [facility] and 7.8 on arrival to CCU. Hgb [...] plan with the ICU team and other medical/product consultant staff. * Tyra De La Torre MD - 06/21/2022 9:15 AM CDT CCU DAILY PROGRESS Patient: Adelia Garvin Jr. Room: [id number] Date: 06/21/2022 Summary Statement: Adelia Garvin Jr. is a 51 y.o. 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 #Nutrition - continue tube feeds - FIRE CREW SPECIALIST eval - remove NGT and restart [...] held iso diarrhea; [place] [facility] [place]U, humalog 6U q4h + SSI - if TF: humalog to 8u q4h - if PO: transition short-acting to humalog 4u post-meal - continue to adjust regimen as patient transitions from TF to oral intake HEME/ONC #Anemia Hgb 9.5 on admission to [facility] and 7.8 on arrival to CCU. Hgb [...] plan with the ICU team and other medical/product consultant staff. * Jess Redmond, PT - 06/21/2022 7:55 AM CDT Physical Therapy 06/21/22 7068 General PT Missed Visit Reason Bedrest Recommendation/Plan [...] DAILY PROGRESS Patient: Adelia Garvin Jr. Room: [place] [address]/[place] [address] Date: 06/20/2022 Summary Statement: Adelia Garvin Jr. is a 51 y.o. 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 Hgb [...] A/C was because he started plavix and motor coach driver decided to stop Eliquis. DIAGNOSTIC REVIEW Blood [...] plan with the ICU team and other medical/product consultant staff. * Bobby Mary MD - [...] 93% I/O last 2 completed shifts: In: 98377.4 [I.V.:1014.4; Other:05431; NG/GT:190; IV Piggyback:420] Out: 75998 [Other:88644] I/O this shift: In: 480.2 [I.V.:480.2] Out: [...] DAILY PROGRESS Patient: Adelia Garvin Jr. Room: [id number] Date: 06/19/2022 Summary Statement: Adelia Garvin Jr. is a 51 y.o. male with a history of CHF (EF 50% 2016), Afib (not on AC), HTN, CAD s/p stent 04/06 and 3 stent 12/07, T1DM (insulin pump at home), ESRD on PD, HLD, GERD, hyperparathyroidism, DDD, OA, gout, BEN on CPAP initially presented to OSH for n/v and chest pain, transferred to [facility] for LHC/PCI, who presented to CCU s/p [...] 06/19/2022 0500 Gross per 24 hour Intake 88665.7 ml Output 82465 ml Net -2782.3 ml Ventilator Settings: 20/500/80/12 [...] gout, BEN on CPAP initially presented to [facility] for n/v and chest pain, transferred to [facility] for LHC/PCI, who presented to the CCU [...] Pt became acutely hypoxic while 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 Hgb [...] plan with the ICU team and other medical/product consultant staff. * Jeffrey Green MD - 06/18/2022 6:17 AM CDT CCU DAILY PROGRESS Patient: Adelia Garvin Jr. Room: [id number] Date: 06/18/2022 Summary Statement: Adelia Garvin Jr. is a 51 y.o. male with a history of CHF (EF 50% 2017), Afib (not on AC), HTN, CAD s/p stent 04/06 and 3 stent 12/07, T1DM (insulin pump at home), ESRD on PD, HLD, GERD, hyperparathyroidism, DDD, OA, gout, BEN on CPAP initially presented to OSH for n/v and chest pain, transferred to [facility] for LHC/PCI, who presented to CCU s/p [...] 06/18/2022 0500 Gross per 24 hour Intake 11830.41 ml Output 02886 ml Net 897.41 ml Ventilator Settings: 20/500/80/12 [...] gout, BEN on CPAP initially presented to [facility] for n/v and chest pain, transferred to [facility] for LHC/PCI, who presented to the CCU [...] Pt became acutely hypoxic while 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 Hgb [...] plan with the ICU team and other medical/product consultant staff. * Jeffrey Green MD - 06/17/2022 6:39 AM CDT CCU DAILY PROGRESS Patient: Adelia Garvin Jr. Room: [id number] Date: 06/17/2022 Summary Statement: Adelia Garvin Jr. is a 51 y.o. male with a history of CHF (EF 50% 2016), Afib (not on AC), HTN, CAD s/p stent 04/06 and 3 stent 12/07, T1DM (insulin pump at home), ESRD on PD, HLD, GERD, hyperparathyroidism, DDD, OA, gout, BEN on CPAP initially presented to OSH for n/v and chest pain, transferred to [facility] for LHC/PCI, who presented to CCU s/p [...] 0-400 mcg/hr, Last Rate: 200 mcg/hr (06/16/22 9932) heparin, 0-33 Units/kg/hr, Last Rate: 10.5 Units/kg/hr [...] gout, BEN on CPAP initially presented to [facility] for n/v and chest pain, transferred to [facility] for LHC/PCI, who presented to the CCU [...] Pt became acutely hypoxic while 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 Hgb [...] plan with the ICU team and other medical/product consultant staff. * Tyra De La Torre MD - 06/16/2022 5:49 AM CDT CCU DAILY PROGRESS Patient: Adelia Garvin Jr. Room: [place] [id number]/[place] [address] Date: 06/16/2022 Summary Statement: Adelia Garvin Jr. is a 51 y.o. male with a history of CHF (EF 50% 2016), Afib (not on AC), HTN, CAD s/p stent 04/06 and 3 stent 12/07, T1DM (insulin pump at home), ESRD on PD, HLD, GERD, hyperparathyroidism, DDD, OA, gout, BEN on CPAP initially presented to OSH for n/v and chest pain, transferred to [facility] for LHC/PCI, who presented to CCU s/p [...] Pulm: On ventilator. 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 Hgb [...] plan with the ICU team and other medical/product consultant staff. * Zoila Sainz - 06/15/2022 4:15 PM CDT 06/15/22 1614 PT Last Visit PT Missed Visit Reason Sedated (pt intubated/sedated) Recommendation/Plan PT Frequency Monitor status PT - Next Appointment 06/17/22 Cosigned by Faby Poole PT at 06/15/2022 4:45 PM CDT * Tyra De La Torre MD - 06/15/2022 5:23 AM CDT CCU DAILY PROGRESS Patient: Adelia Garvin Jr. Room: [id number] Date: 06/15/2022 Summary Statement: Adelia Garvin Jr. is a 51 y.o. male with a history of CHF (EF 50% 2017), Afib (not on AC), HTN, CAD s/p stent 04/06 and 3 stent 12/07, T1DM (insulin pump at home), ESRD on PD, HLD, GERD, hyperparathyroidism, DDD, OA, gout, BEN on CPAP initially presented to OSH for n/v and chest pain, transferred to [facility] for LHC/PCI, who presented to CCU s/p [...] gout, BEN on CPAP initially presented to [facility] for n/v and chest pain, transferred to [facility] for LHC/PCI, who presented to the CCU [...] Pt became acutely hypoxic while 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 Hgb [...] plan with the ICU team and other medical/product consultant staff. * Lavern Morrison MD - 06/14/2022 4:39 PM CDT CCU DAILY PROGRESS Patient: Adelia Garvin Jr. Room: [id number] Date: 06/14/2022 Summary Statement: Adelia Garvin Jr. is a 51 y.o. male with a history of CHF (EF 50% 2016), Afib (not on AC), HTN, CAD s/p stent 04/06 and 3 stent 12/07, T1DM (insulin pump at home), ESRD on PD, HLD, GERD, hyperparathyroidism, DDD, OA, gout, BEN on CPAP initially presented to OSH for n/v and chest pain, transferred to [facility] for LHC/PCI, who presented to CCU s/p [...] gout, BEN on CPAP initially presented to [facility] for n/v and chest pain, transferred to [facility] for LHC/PCI, who presented to the CCU [...] Pt became acutely hypoxic while 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 Hgb [...] plan with the ICU team and other medical/product consultant staff. * Payam Johnson, TOOL PUSHER - 06/14/2022 11:56 AM CDT 06/14/22 1135 [...] DAILY PROGRESS Patient: Adelia Garvin Jr. Room: [id number] Date: 06/13/2022 Summary Statement: Adelia Garvin Jr. is a 51 y.o. male with a history of CHF (EF 50% 2016), Afib (not on AC), HTN, CAD s/p stent 04/06 and 3 stent 12/07, T1DM (insulin pump at home), ESRD on PD, HLD, GERD, hyperparathyroidism, DDD, OA, gout, BEN on CPAP initially presented to OSH for n/v and chest pain, transferred to [facility] for LHC/PCI, who presented to CCU s/p [...] gout, BEN on CPAP initially presented to [facility] for n/v and chest pain, transferred to [facility] for LHC/PCI, who presented to the CCU [...] Pt became acutely hypoxic while 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 Hgb [...] plan with the ICU team and other medical/product consultant staff. * Olga Bernstein, PT - 06/13/2022 9:14 AM CDT Physical Therapy 06/13/22 0913 General PT Missed Visit Reason Bedrest;Sedated (impella, CVVHD) Recommendation/Plan PT Frequency Monitor status PT - Next Appointment 06/15/22 * Jeffrey Green MD - 06/12/2022 4:58 AM CDT CCU DAILY PROGRESS Patient: Adelia Garvin Jr. Room: [place] [address] Date: 06/12/2022 Summary Statement: Adelia Garvin Jr. is a 51 y.o. male with a history of CHF (EF 50% 2016), Afib (not on AC), HTN, CAD s/p stent 04/06 and 3 stent 12/07, T1DM (insulin pump at home), ESRD on PD, HLD, GERD, hyperparathyroidism, DDD, OA, gout, BEN on CPAP initially presented to OSH for n/v and chest pain, transferred to [facility] for LHC/PCI, who presented to CCU s/p [...] gout, BEN on CPAP initially presented to [facility] for n/v and chest pain, transferred to [facility] for LHC/PCI, who presented to the CCU [...] Pt became acutely hypoxic while 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 Hgb [...] plan with the ICU team and other medical/product consultant staff. * Jeffrey Green MD - 06/11/2022 2:46 AM CDT CCU DAILY PROGRESS Patient: Adelia Garvin Jr. Room: [id number] Date: 06/11/2022 Summary Statement: Adelia Garvin Jr. is a 51 y.o. male with a history of CHF (EF 50% 2016), Afib (not on AC), HTN, CAD s/p stent 04/06 and 3 stent 12/07, T1DM (insulin pump at home), ESRD on PD, HLD, GERD, hyperparathyroidism, DDD, OA, gout, BEN on CPAP initially presented to OSH for n/v and chest pain, transferred to [facility] for LHC/PCI, who presented to CCU s/p complex PCI with impella and intubated. SUBJECTIVE Overnight: - Impella removed -[place] removed -Veletri weaned off -Tube feeds started [...] gout, BEN on CPAP initially presented to [facility] for n/v and chest pain, transferred to [facility] for LHC/PCI, who presented to the CCU [...] Pt became acutely hypoxic while 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 Hgb [...] plan with the ICU team and other medical/product consultant staff. * Tyra De La Torre MD - 06/10/2022 12:46 PM CDT CCU DAILY PROGRESS Patient: Adelia Garvin Jr. Room: [facility] CARDIAC CATH ROOM/NO* Date: 06/10/2022 Summary Statement: [...] for n/v and chest pain, transferred to [facility] for LHC/PCI, who presented to CCU s/p [...] gout, BEN on CPAP initially presented to [facility] for n/v and chest pain, transferred to [facility] for LHC/PCI, who presented to the CCU [...] Pt became acutely hypoxic while 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 Hgb [...] plan with the ICU team and other medical/product consultant staff. * Lavern Morrison MD - 06/09/2022 6:31 AM CDT CCU DAILY PROGRESS Patient: Adelia Garvin Jr. Room: [id number] Date: 06/09/2022 Summary Statement: Adelia Garvin Jr. is a 51 y.o. male with a history of CHF (EF 50% 2017), Afib (not on AC), HTN, CAD s/p stent 8/17 and 3 stent 12/07, T1DM (insulin pump at home), ESRD on PD, HLD, GERD, hyperparathyroidism, DDD, OA, gout, BEN on CPAP initially presented to OSH for n/v and chest pain, transferred to [facility] for LHC/PCI, who presented to CCU s/p [...] gout, BEN on CPAP initially presented to [facility] for n/v and chest pain, transferred to [facility] for LHC/PCI, who presented to the CCU [...] Pt became acutely hypoxic while 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 Hgb [...] plan with the ICU team and other medical/product consultant staff. * Roberto Carlos Newberry PT - 06/08/2022 3:00 PM CDT Physical Therapy 06/08/22 1500 General PT Missed Visit Reason Sedated;Other (comment) (pt intubated, sedated, primaflex CVVHD.) * Marcelina Pickard NP - 06/08/2022 7:58 AM CDT PROCEDURE: [facility] w/ complex PCI and Impella CP placement [...] statin therapy. Follow up appt with primary motor coach driver, Dr Petit in 2-4 weeks post discharge. LOIDA Dos Santos Interventional Cardiology Nurse Practitioner [phone] Please refer to [facility] Blood [...] - CCU Night Call Fellow * Lavern Morriosn MD - 06/08/2022 3:06 AM CDT CCU DAILY PROGRESS Patient: Adelia Garvin Jr. Room: [id number] Date: 06/08/2022 Summary Statement: Adelia Garvin Jr. is a 51 y.o. male with a history of CHF (EF 50% 2016), Afib (not on AC), HTN, CAD s/p stent 04/06 and 3 stent 12/07, T1DM (insulin pump at home), ESRD on PD, HLD, GERD, hyperparathyroidism, DDD, OA, gout, BEN on CPAP initially presented to OSH for n/v and chest pain, transferred to [facility] for LHC/PCI, who presented to CCU s/p [...] 06/08/2022 0500 Gross per 24 hour Intake 61376.23 ml Output 23899 ml Net -328.77 ml Ventilator Settings: 20/500/80/12 [...] gout, BEN on CPAP initially presented to [facility] for n/v and chest pain, transferred to [facility] for LHC/PCI, who presented to the CCU [...] Pt became acutely hypoxic while 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 Hgb [...] plan with the ICU team and other medical/product consultant staff. * Jess Redmond, PT - 06/07/2022 11:48 AM CDT Physical Therapy 06/07/22 1148 General PT Missed Visit Reason Procedure/testing/appointment (Park Maintenance Technician) * Conrad Akers MD - 06/07/2022 9:32 AM CDT MICU Attending Daily Note Name: Adelia Garvin Jr. Bed: [id number] : 1970 Age: 51 y.o. male Admit: [...] pre-medications for contrast allergy in anticipation of [facility] today. Scheduled Meds:amLODIPine, 10 mg, oral, Daily [...] 06/07/2022 0800 Gross per 24 hour Intake 37595.7 ml Output 54399 ml Net -1579.3 ml 24hr Min/Max: Temp [...] performed whenever feasible but would not delay [facility] For this Continue meropenem for gram negative [...] plan with the ICU team and other medical/product consultant staff. Conrad Akers MD Pulmonary/Critical Care * Girish Kirk MD - 06/07/2022 7:56 AM CDT [facility] Acute and Critical Care Surgery [...] Is&Os: I/O last 2 completed shifts: In: 92784.3 [P.O.:780; I.V.:444.3; Other:27703; IV Piggyback:100] Out: 96017 [Other:58253] No intake/output data recorded. Physical Exam: BP [...] evaluation. The pelvis is excluded from the [id number]-[id number] and unavailable for interpretation. A rounded density [...] essential hypertension Hyperlipidemia 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[place] artery of [place] heart with stable angina pectoris (CMS/HCC) (HCC) [...] OA, gout, BEN on CPAP [facility], [facility]/v, diarrhea, and chest pain, transferredto [facility] on 06/05 for LHC/PCI scheduled for 06/06. Pt was found to have an NSTEMI at OSH and was continued on hep gtt, asa81, plavix at [facility]. He was transferred to MICU after he [...] GB pathology - Serial abdominal exams - [facility] will continue to follow The care plan above has been or will be discussed with attending physician. Any changes will be communicated to the primary team. Please contact the [facility] Inpatient Consult Service at the number listed below with any questions or concerns regarding the surgical management of this patient. Girish Kirk MD Resident Physician General Surgery [facility]S ED Consult [facility] Inpatient Consult [facility] Outpatient Clinic - option 1 Cosigned by Modesta Gamez MD at 06/07/2022 9:33 PM CDT Associated attestation - Modseta Gamez MD - 06/07/2022 9:33 PM CDT I agree with the findings and plan of care as documented in the resident's/fellow's note. I did not evaluate the patient today, as he was in the high density press laborer upon my arrival. Later chart reviewrevealed a [...] MD Instructor, Acute and Critical Care Surgery [facility] [employer] * Amira Davenport RN - 06/06/2022 12:04 PM CDT CM Initial Assessment Interview Note Information Obtained From: Patient (06/06/22 1156) Admission Source: from [facility] Impression: Hx - CHF, Afib, HTN, [...] (name, phone, availablity): Brother Jude Gallardo - [phone] Home Care Services: No Durable Medical Equipment: [...] Collaboration with patient, MD, direct care nurse, Coil Former, and other members of the health care team to assure needed interventions completed. 2. Return patient to optimal level of self-care post discharge. 3. Adjunct Faculty Mathematics Department will follow for Discharge Planning - interventions [...] Daily Note Name: Adelia Garvin Jr. Bed: [id number] : 1970 Age: 51 y.o. male Admit: [...] 06/06/2022 0900 Gross per 24 hour Intake 72984.47 ml Output 64489 ml Net -2112.53 ml 24hr Min/Max: Temp [...] EKG/Min 73 BPM Atrial Rate 73 BPM MI-Interval (MSEC) 184 ms QRS-Interval (MSEC) 106 ms QT-Interval (MSEC) 442 ms QTc 486 ms P [place] 49 degrees R [place] -33 degrees T [place] 87 degrees Diagnosis Normal sinus rhythm Possible [...] Magnesium 2.1 1.4 - 2.5 mg/dL POCT XX-[id number]-HCT, WB - ISTAT Collection Time: 06/05/22 3:22 [...] findings include: Troponin peak at 4800 NT-proBNP 09982 CXR with bilateral fluffy opacities RUQ US [...] HIDA scan when feasible, would not delay [facility] for this Continue meropenem for gram negative and anaerobic coverage Consult HPB pending [facility] plans Will almost certainly need to be [...] control Wean O2 as tolerated, currently on [place] Hypertensive urgency/emergency With associated flash pulmonary edema [...] plan with the ICU team and other medical/product consultant staff. Conrad Akers MD Pulmonary/Critical Care documented in this encounter H&P Notes * Marcelina Pickard, ORBERTO - 06/10/2022 10:33 AM CDT I have reviewed the H&P, examined the patient, and endorse the findings as written. Plan of Care : Based on the above findings, I consider Adelia Garvin Jr. to be an acceptable risk for : Procedure(s): REMOVE PERC ARTERIAL VAD (IMPELLA), DIFFERENT SESSION [id number] Cosigned by Champ Osborne MD PhD at 06/10/2022 10:55 AM CDT Source Note - Jeffrey Green MD - 06/07/2022 2:03 PM CDT . CCU ADMISSION HISTORY AND PHYSICAL Patient: Adelia Garvin Jr. Room: [facility] CARDIAC CATH ROOM/NO* Date: 06/07/2022 SUBJECTIVE CCU INDICATION: Cardiogenic shock HISTORY OF PRESENT ILLNESS Adelia Garvin Jr. is a 51 y.o. male with a history of CHF (EF 50% 2016), Afib (not on AC), HTN, CAD s/p stent 04/06 and 3 stent 12/07, T1DM (insulin pump at home), ESRD on PD, HLD, GERD, hyperparathyroidism, DDD, OA, gout, BEN on CPAP initially presented to [facility] for n/v and chest pain, transferred to [facility] for LHC/PCI, now presenting to CCU s/p complex PCI with impella and intubated. At the OSH he presented with 3d generalized weakness, chills, ROONEY, n/v, chest pain relieved by sublingual ntg. His labs were notable for trop 1.0-->1.09-->0.729, BNP 64379. He had a CT CAP showing cholelithiasis [...] circumflex as optimal treatment, prompting transfer to [place]. He arrived at [place] 06/05. EKG showed sinus bradycardia, 1st deg [...] Diabetes mellitus (HCC) Diabetes mellitus type I ([facility]) Dialysis patient ([facility]) (HCC) ESRD on dialysis ([facility]) ([facility]) GERD (gastroesophageal reflux disease) Hyperlipidemia Hypertension [...] 06/07/2022 1100 Gross per 24 hour Intake 01225.04 ml Output 58214 ml Net -1701.96 ml REVIEW OF LABORATORY [...] gout, BEN on CPAP initially presented to [facility] for n/v and chest pain, transferred to [facility] for LHC/PCI, now presenting to CCU s/p [...] Pt became acutely hypoxic while in the 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 Room: [facility] CARDIAC CATH ROOM/NO* Date: 06/07/2022 SUBJECTIVE CCU INDICATION: Cardiogenic shock HISTORY OF PRESENT ILLNESS Adelia Garvin Jr. is a 51 y.o. male with a history of CHF (EF 50% 2017), Afib (not on AC), HTN, CAD s/p stent 04/06 and 3 stent 12/07, T1DM (insulin pump at home), ESRD on PD, HLD, GERD, hyperparathyroidism, DDD, OA, gout, BEN on CPAP initially presented to [facility] for n/v and chest pain, transferred to [facility] for LHC/PCI, now presenting to CCU s/p complex PCI with impella and intubated. At the OSH he presented with 3d generalized weakness, chills, ROONEY, n/v, chest pain relieved by sublingual ntg. His labs were notable for trop 1.0-->1.09-->0.729, BNP 65548. He had a CT CAP showing cholelithiasis [...] circumflex as optimal treatment, prompting transfer to [place]. He arrived at [place] 06/05. EKG showed sinus bradycardia, 1st deg [...] Diabetes mellitus type I (HCC) Dialysis patient ([facility]) (HCC) ESRD on dialysis ([facility]) ([facility]) GERD (gastroesophageal reflux disease) Hyperlipidemia Hypertension [...] 06/07/2022 1100 Gross per 24 hour Intake 58158.04 ml Output 44445 ml Net -1701.96 ml REVIEW OF LABORATORY [...] gout, BEN on CPAP initially presented to [facility] for n/v and chest pain, transferred to [facility] for LHC/PCI, now presenting to CCU s/p [...] Pt became acutely hypoxic while in the 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 [place]-Liv catheter reviewed that shows adequate cardiac output [...] plan with the ICU team and other medical/product consultant staff. * Marcelina Pickard NP - 06/07/2022 10:26 AM CDT I have reviewed the H&P, examined the patient, and endorse the findings as written. Plan of Care : Based on the above findings, I consider Adelia Garvin Jr. to be an acceptable risk for : Procedure(s): PCI MARIELLA MAJOR CORONARY C9600 - 93850 Cosigned by Champ Osborne MD PhD at [...] gout, BEN on CPAP initially presented to [facility] for generalized weakness, n/v, diarrhea, and chest pain, transferred to [facility] for LHC/PCI scheduled for 06/06, and presenting to the MICU after he was placed on NIPPV during an ACT for hypoxic respiratory failure. At OSH, pt presented w 3d of generalized weakness, loss of appetite, chills, ROONEY, n/v/d, and intermittent chest pain relieved by sublingual ntg. Labs at OSH notable for WBC 6.1, hgb 10.2, plt 206, trop I 1.0->1.09->0.729, BNP 99717. CTAP cholelithiasis w mild gallbladder distension, airspace [...] doneat tertiary center. Pt was transferred to [facility] floor overnight. Labs notable for Na 129, [...] (coronary artery disease) Chest pain Diabetes mellitus ([facility]) Diabetes mellitus type I ([facility]) Dialysis patient ([facility]) ESRD on dialysis ([facility]) GERD (gastroesophageal reflux disease) Hyperlipidemia Hypertension [...] 0659 06/05/22 0700 - 06/06/22 0659 Shift 2416-0191 8809-8342 24 Hour Total 9277-1642 6935-2897 24 Hour Total INTAKE P.O. 60 60 Other 42373 54415 Shift Total(mL/kg) 69670(83.5) 79937(83.5) OUTPUT Urine 0 0 Other 57497 53748 Stool 0 0 Shift Total(mL/kg) 50453(87.7) 60826(87.7) NET -603 -603 Weight (kg) 142 142 [...] Magnesium 2.1 1.4 - 2.5 mg/dL POCT JC-Z-CPR-GLU-HCT, WB - ISTAT Collection Time: 06/05/22 3:22 [...] or aspiration. No pneumothorax. Electronically signed by: iDmitrios Slater M.D. Assessment/Plan 51 y.o. male with a history of CHF (EF 50% 2017), Afib (not on AC), HTN, CAD s/p stent 04/06 and 3 stent 12/07, T1DM (insulin pump at home), ESRD on PD, HLD, GERD, hyperparathyroidism, DDD, OA, gout, BEN on CPAP presents to OSH with NSTEMI, CAP, transferred to [facility] for LHC/PCI scheduled for 06/06, andpresenting to [...] Trop downtrending since admission. EKG unchanged. - [facility] 06/06 at 10:30am (NPO [place]) - hep [...] gout, BEN on CPAP initially presented to [facility] for generalized weakness, n/v, diarrhea, and chest pain, transferred to [facility] for LHC/PCI scheduled for 06/06, and presenting to the MICU after he was placed on NIPPV during an ACT for hypoxic respiratory failure. At OSH, pt presented w 3d of generalized weakness, loss of appetite, chills, ROONEY, n/v/d, and intermittent chest pain relieved by sublingual ntg. Labs at OSH notable for WBC 6.1, hgb 10.2, plt 206, trop I 1.0->1.09->0.729, BNP 41394. CTAP cholelithiasis w mild gallbladder distension, airspace [...] doneat tertiary center. Pt was transferred to [facility] floor overnight. Labs notable for Na 129, [...] (coronary artery disease) Chest pain Diabetes mellitus ([facility]) Diabetes mellitus type I ([facility] Dialysis patient ([facility]) ESRD on dialysis ([facility]) GERD (gastroesophageal reflux disease) Hyperlipidemia Hypertension [...] 0659 06/05/22 0700 - 06/06/22 0659 Shift 1209-9241 2472-0452 24 Hour Total 2731-2196 5746-0622 24 Hour Total INTAKE P.O. 60 60 Other 03290 70117 Shift Total(mL/kg) 62004(83.5) 01862(83.5) OUTPUT Urine 0 0 Other 83269 79805 Stool 0 0 Shift Total(mL/kg) 56298(87.7) 15595(87.7) NET -603 -603 Weight (kg) 142 142 [...] Magnesium 2.1 1.4 - 2.5 mg/dL POCT OK-Y-[id number]-GLU-HCT, WB - ISTAT Collection Time: 06/05/22 3:22 [...] to OSH with NSTEMI, CAP, transferred to [facility] for LHC/PCI scheduled for 06/06, andpresenting to [...] plan with the ICU team and other medical/product consultant staff. * Russ Milner MD - [...] gout, BEN on CPAP initially presented to [facility] for generalized weakness, n/v, diarrhea, and chest pain now being transferred for LHC/PCI 06/06. Patient initially presented with generalized weakness for the last 3 days. He then began to endorsen/v and diarrhea as well as chest pain which waxes and wanes and improves with sublingual ntg. He also reported decreased appetite, chills, dyspnea with exertion, and nonproductive cough. Patient follows with [facility] for cardiology. [...] 105, Lipase 65, troponin I 1.0->1.09->0.729, BNP 37415. Covid, influenza negative. CXR showed left basilar [...] (coronary artery disease), Chest pain, Diabetes mellitus ([facility]), Diabetes mellitus type I ([facility]), Dialysis patient ([facility]), ESRD on dialysis ([facility]),GERD (gastroesophageal reflux disease), Hyperlipidemia, Hypertension, Sleep apnea, [...] gout, BNE on CPAP initially presented to [facility] for generalized weakness, n/v, diarrhea, andchest pain now being transferred for LHC/PCI 06/06. #CHF #CAD s/p PCI 03/2017 (RCA) and 3 stent 12/07 (prox, mid, and distal RCA) OSH txf for LHC/PCI w Dr. Osborne 06/06 at 10:30am. [facility]. He did have angiogram in 2020 which showed patent stents in RCA and PDA, previouslyjailed posterolateral occluded and 50% stenosis in branch of OM1. Endorsing chest pain iso n/v/diarrhea/ROONEY. Elevated troponin I 1.0->1.09->0.729, BNP 80522. EKG with sinus rhythm with left anterior [...] pain, no changes in EKG->restarted heparin gtt -[facility] 06/06 at 10:30am (NPO [place]) -heparin gtt [...] white count, elevated troponin I 1.0->1.09->0.729, BNP 36486, lipase 65. Covid, influenza negative. CXR showed [...] 24h UF 1074 ml Won Navarro MD home care specialist Division of Nephrology NEPHROLOGY PROCEDURE NOTE Date [...] 116.1 kg (255 lb 15.3 oz) Height: TOOL PUSHER vascular access: PD catheter Other findings: Date 06/25/22699 - 06/26/22 0659 06/26/22699 - 06/27/22 0659 Shift 5598-8088 4392-6881 24 Hour Total 3755-0684 8744-9471 24 Hour Total INTAKE P.O. 360 360 Other 66719 48227 Shift Total(mL/kg) 360(3) 29995(105.7) 91126(108.8) OUTPUT Urine(mL/kg/hr) 100(0.1) 100(0) 300 300 Other 14061 36556 Shift Total(mL/kg) 100(0.8) 16067(119) 55214(119.9) 300(2.6) 300(2.6) NET 260 -1547 -1287 -300 [...] FERRITIN 2,062 (H) 06/07/2022 Won Navarro MD home care specialist Nephrology Division GER GALLERY * Aleida Lambert, FIRE CREW SPECIALIST - 06/21/2022 2:02 PM CDTAssociated Order(s): FIRE CREW SPECIALIST EVALUATE AND TREAT VIDEOFLUOROSCOPIC SWALLOW STUDY [...] reported General Information Adelia Garvin Jr. 06/21/22 FIRE CREW SPECIALIST Received On: 06/21/22 General Observations: presents [...] Administered: Thin liquids (via spoon & straw), [place] thickened liquids (via spoon & straw), Purees, Honey thickened liquids via spoon, Solids. Patient took large sips requiring more than 1 swallow even when cued for small sip. Administered consistencies contain barium product. Thin Liquids: Laryngeal Penetration: Present Aspiration Present: No Penetration Aspiration Scale-Thin: 4-Material enters the airway, contacts the vocal folds and is ejected from the airway [place] Thickened Liquids: Laryngeal Penetration: Present Aspiration Present: No Penetration Aspiration Scale-[place]: 2-Material enters the airway, remains above the [...] treatment goals and details, if indicated. Plan FIRE CREW SPECIALIST Frequency of Services: 2-3x/wk FIRE CREW SPECIALIST Recommendation (Add'l Services): Inpatient Rehab Facility [...] National Outcomes Measurement System: (pending MBS) Plan FIRE CREW SPECIALIST Frequency of Services: Pending instrumental assessment [...] Poe MD Authorized by: Aj Poe MD [place] Protocol: RN Notified of Procedure: yes Informed consent: Patient/wholesale representative/guardian agrees and accepts and risks, benefits, [...] Brody, the patient's brother. Aj Poe MD Wall Worker, PGY-5 Cosigned by Rufino Flores MD at 06/20/2022 9:33 AM CDT * Lavern Morrison MD - 06/07/2022 10:17 PM CDTAssociated Order(s): Arterial Line Insertion Post-Procedure Diagnose(s): Hypotension, unspecified hypotension type Arterial Line Insertion Date/Time: 06/07/2022 10:17 PM Performed by: Lavern Morrison MD Authorized by: Lavern Morrison MD [place] Protocol: RN Notified of Procedure: yes Informed [...] for n/v and chest pain, transferred to [facility] for LHC/PCI, who presented to CCU s/p complex PCI with impella and intubated. Now extubated, tolerating PO intake, on home PD. Arrived at [place] from OSH on 06/05. EKG showed sinus [...] Diabetes mellitus type I (HCC), Dialysis patient ([facility]) (HCC), ESRD on dialysis ([facility]) (HCC), GERD (gastroesophageal reflux disease), Hyperlipidemia, Hypertension, [...] 06/23/2022 1747 Gross per 24 hour Intake 37903 ml Output 43080 ml Net -2325 ml Physical Exam: General: [...] ESRD on PD who was transferred to [facility] for an impella-supported complex PCI on 06/07/22 [...] 5PM or on weekends, please page the hackler doll wigs educational fundraising director with any questions or concerns. Will Villavicencio MD Wall Worker 5:59 PM 06/23/22 Cosigned by Musa Fernando MD at 06/23/2022 7:53 PM CDT Associated attestation - Musa Fernando MD - 06/23/2022 7:53 PM CDT 06/23/2022 I have personally seen and examined this pt with resident/Fellow/OPTICAL INSTRUMENT INSPECTOR . I have reviewed History/Physical exam and plan for management. I agree with it . Musa Fernando M.D., F.A.CSharathC. production statistical clerk [facility] [employer] [facility]. [place] This note contains information [...] about verbage above please contact me at [phone]. . * Mckenzie Phelan, RD - 06/15/2022 [...] gout, BEN on CPAP initially presented to [facility] for generalized weakness, n/v, diarrhea, and chest pain now being transferred for LHC/PCI 06/06. Objective Past Medical History: Diagnosis Date CAD (coronary artery disease) Chest pain Diabetes mellitus (HCC) Diabetes mellitus type I (HCC) Dialysis patient ([facility]) (HCC) ESRD on dialysis ([facility]) (HCC) GERD (gastroesophageal reflux disease) Hyperlipidemia Hypertension [...] of Weight Used for Estimated Protein : [place] Protein Needs Based on g/k.7 Total Protein [...] Evaluation: TF tolerance Mckenzie Phelan RDN LD [phone] * Sandrine Myers MD - 06/15/2022 10:42 [...] Pulmonary will continue to follow. Please call educational fundraising director pulmonary consult fellow with additional questions or [...] gout, BEN on CPAP initially presented to [facility] for generalized weakness, n/v, diarrhea, and chest pain now being transferred for LHC/PCI 06/06. Objective Past Medical History: Diagnosis Date CAD (coronary artery disease) Chest pain Diabetes mellitus (HCC) Diabetes mellitus type I (HCC) Dialysis patient (CMS/HCC) (HCC) ESRD on dialysis ([facility]) (HCC) GERD (gastroesophageal reflux disease) Hyperlipidemia Hypertension [...] of Weight Used for Estimated Protein : [place] Protein Needs Based on g/k.5 Total Protein [...] Monitoring and Evaluation: TF tolerance ADAMA Tejada Cutter Out RD number [phone] * Ronny Vasquez - 06/10/2022 2:21 PM [...] gout, BEN on CPAP initially presented to [facility] for generalized weakness, n/v, diarrhea, and chest pain now being transferred for LHC/PCI 06/06. Objective Past Medical History: Diagnosis Date CAD (coronary artery disease) Chest pain Diabetes mellitus (HCC) Diabetes mellitus type I (HCC) Dialysis patient ([facility]) (HCC) ESRD on dialysis ([facility]) ([facility]) GERD (gastroesophageal reflux disease) Hyperlipidemia Hypertension [...] TF tolerance Ronny Vasquez MS RDN LD Cutter Out RD number [phone] * Patricio Pearce MD - 06/09/2022 1:10 [...] failure. Briefly, the patient was transferred to [facility] for complex PCI for NSTEMI on 06/04. He was initially on the medicine floor then went into flash pulmonary edema in setting of hypertension and NSTEMI and was transferred to the MICU for NPPV. CXR showed significant pulmonary edema. Labs notable for BNP 84335, trops 4000. He was also found to [...] dilated RV with normal RV systolic function. [place] numbers from earlier today indicat PA 36/17, [...] Diabetes mellitus type I (HCC) Dialysis patient ([facility]) (HCC) ESRD on dialysis ([facility]) ([facility]) GERD (gastroesophageal reflux disease) Hyperlipidemia Hypertension [...] CDTAssociated Order(s): IP CONSULT TO GENERAL SURGERY [facility] Acute Care Surgery Consult Note Requesting Consult: Conrad Akers MD Reason for Consult: cholecystitis Assessment: 51M w/PMHB CHF (EF 50% 2016), Afib (not on AC), HTN, CAD s/p stent 04/06 and 3 stent 12/07, T1DM (insulin pump at home), ESRD on PD, HLD, GERD, hyperparathyroidism, DDD, OA, gout, BEN on CPAP [facility], n/v, diarrhea, and chest pain, transferredto [facility] on 06/05 for LHC/PCI scheduled for 06/06. Pt was found to have an NSTEMI at OSH and was continued on hep gtt, asa81, plavix at [facility]. He was transferred to MICU after he [...] discussed with attending Dr. Gamez. Please contact [facility] Inpatient Consults at with any questions [...] OA, gout, BEN on CPAP [facility], n/v, diarrhea, and chest pain, transferredto [facility] on 06/05 for LHC/PCI scheduled for 06/06. Pt was found to have an NSTEMI at OSH and was continued on hep gtt, asa81, plavix at [facility]. He was transferred to MICU after he [...] (coronary artery disease) Chest pain Diabetes mellitus ([facility]) Diabetes mellitus type I ([facility]/HCC) Dialysis patient ([facility]) ESRD on dialysis ([facility]) GERD (gastroesophageal reflux disease) Hyperlipidemia Hypertension [...] evaluation. The pelvis is excluded from the [id number] and unavailable for interpretation. A rounded density [...] only and have not been reviewed by [facility]. There will be no report generated by a [facility] Radiologist. XR Outside Reference Result Date: 06/05/2022 These images are for Reference purposes only and have not been reviewed by [facility]. There will be no report generated by a [facility] Radiologist. US RUQ Result Date: [...] only and have not been reviewed by [facility]. There will be no report generated by a [facility] Radiologist. IR Outside Reference Result Date: 06/05/2022 These images are for Reference purposes only and have not been reviewed by [facility]. There will be no report generated by a [facility] Radiologist. Assessment/Plan: Please see top of note. Cosigned by Modesta Gamez MD at 06/07/2022 9:34 PM CDT Associated attestation - Modesta Gamez MD - 06/07/2022 9:34 PM CDT I have seen and examined the patient on 06/06/2022. I agree with the findings and plan of care as documented in the resident's/fellow's note. Nona Gamez MD Instructor, Acute and Critical Care Surgery [facility] [employer] ' * Hortencia Slade MD - 06/05/2022 2:37 PM CDTAssociated Order(s): CONSULT TO ENDOCRINOLOGY DIABETES Endocrinology & Diabetes Consult Note Patient: Adelia Garvin Jr., 51 y.o. male (: 1970) Room: [id number] ( ) LOS: 1 Consult Question: T1DM on insulin pump (Requesting Provider: Champ Osborne MD PhD) Adelia Garvin Jr. is a 51 y.o. male with PMHx CHF (EF 50% in 2017), atrial fibrillation not on OAC, HTN/HLD, CAD s/p PCI, ESRD on PD, hyperparathyroidism presenting with weakness, N/V, diarrhea and chest pain. He is scheduled for [facility] on 06/06. Diabetes service consulted for T1DM [...] (coronary artery disease), Chest pain, Diabetes mellitus ([facility]), Diabetes mellitus type I ([facility] Dialysis patient ([facility]), ESRD on dialysis ([facility]), GERD (gastroesophageal reflux disease), Hyperlipidemia, Hypertension, Sleep [...] is 44.91 kg/m??. I/O this shift: In: 21320 [P.O.:60; Other:94520] Out: 79042 [Other:86034] Physical Exam Gen : no acute distress, [...] Plan 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, complicated by ESRD on [...] ## Discharge Planning - Follow-up with home skiver counter Discussed with Dr. Huynh and primary team [...] Date: 2019 Dialysis Days: nightly Dialysis Center: [place], [place] Dialysis Medicine: Dialysis Prescription: CCPD - 4 exchanges of 2.8 L each, total time 9 hours, total volume : 11.2 L.All 2.5 % bags and then a manual day time exchange with 1 L purple bag. Past Medical History: Diagnosis Date CAD (coronary artery disease) Chest pain Diabetes mellitus (CMS/HCC) Diabetes mellitus type I (CMS/HCC) Dialysis patient (CMS/HCC) ESRD on dialysis (CMS/[facility]) GERD (gastroesophageal reflux disease) Hyperlipidemia Hypertension [...] No rash or lesions on visible skin CAR RACER: Alert Ox3. No focal motor deficits, no [...] cell count and diff. Vonnie Cody MD home care specialist documented in this encounter Nursing Notes * Tequila Ingram RN - 06/28/2022 8:08 PM CST 9 hour CCPD treatment started as ordered. PD catheter site is clear and free of drainage. PD site was cleansed and gentamicin cream applied at entrance. Covered with gauze dressing. Treatment setup aseptically per protocol. GER GALLERY * Pj Duckworth RN - 06/28/2022 6:15 AM CST 06/28/22 0600 Vitals BP 124/62 Temp 36.7 ??C (98.1 ??F) Temp src Oral Pulse 70 Resp 16 SpO2 98 % Weight 120.3 kg (265 lb 3.4 oz) Peritoneal Dialysis Dialysis Type CCPD Peritoneal Dialysis Setup Completed by engineering lecturerdoctor of naprapathic medicine Status End Cycle Number 4 Machine Type Dot Medical[employer] Pro Machine # [id number] Initial Drain Volume (mL) 312 mL Last Fill Volume (mL) 999 mL Fill Volume In (mL) 28125 mL Effluent Volume Out (mL) 50932 ml Effluent Appearance Clear;Yellow Balance This Exchange (mL) 1788 mL Peritoneal Dialysis Catheter Continuous cycling No placement date or time found. Placed by External Staff?: Other (Comment) Dialysis Type: Continuous cycling Status Deaccessed;Clamped Dressing Gauze Dressing Status Clean, dry, intact GER GALLERY * Pj Duckworth RN - 06/27/2022 8:21 PM CST Started CCPD. Target treatment time is 9 hours. GER GALLERY * Pj Duckworth RN - 06/27/2022 6:24 AM CST 06/27/22 0600 Peritoneal Dialysis Dialysis Type CCPD Peritoneal Dialysis Setup Completed by engineering lecturerdoctor of naprapathic medicine Status End Cycle Number 4 Machine Type CoreValue Software Home[employer] Pro Machine # [id number] Initial Drain Volume (mL) 690 mL Last Fill Volume (mL) 785 mL Fill Volume In (mL) 18240 mL Effluent Volume Out (mL) 01875 ml Effluent Appearance Clear;Yellow Balance This Exchange (mL) 1944 mL Peritoneal Dialysis Catheter Continuous cycling No placement date or time found. Placed by External Staff?: Other (Comment) Dialysis Type: Continuous cycling Status Deaccessed;Clamped Dressing Gauze Dressing Status Clean, dry, intact GER GALLERY * Pj Duckworth RN - 06/26/2022 7:52 PM CST Started CCPD. Target treatment time is 9 hours. GER GALLERY * Pj Duckworth RN - 06/25/2022 8:41 PM CDT Started CCPD. Target treatment time is 9 hours. * Pj Duckworth RN - 06/25/2022 6:09 AM CDT 06/25/22 0600 Peritoneal Dialysis Dialysis Type CCPD Peritoneal Dialysis Setup Completed by engineering lecturerdoctor of naprapathic medicine Status End Cycle Number 4 Machine Type Dalton Home[employer] Pro Machine # [id number] Initial Drain Volume (mL) 423 mL Last Fill Volume (mL) 999 mL Fill Volume In (mL) 90436 mL Effluent Volume Out (mL) 18911 ml Effluent Appearance Clear;Yellow Balance This Exchange [...] MD to hold off on dialysis. * tSephie Jo RN - 06/20/2022 4:08 PM CDT [...] at 150 ml/hr. 4K/2.5Ca dialysate fluid used. SPEECH AND HEARING CLINIC DIRECTOR has no questions or concerns at this time, contact number left at bedside. * Mell Daniel RN - 06/19/2022 10:01 AM CDT CVVHDF reset. Prismaflex #12 used. Warmer set at 40.5 using toney tubing through RIJ catheter. All pressures within normal limits. UF rate at 200 ml/hr. 4K/2.5Ca dialysate fluid used. SPEECH AND HEARING CLINIC DIRECTOR has no questions or concerns at this [...] Type CCPD Peritoneal Dialysis Setup Completed by engineering lecturerdoctor of naprapathic medicine Status End Initial Drain Volume (mL) 429 [...] Change Due 06/19/22 Site Assessment Clean and dry;Tasley * Jaja Mojica RN - 06/17/2022 12:43 PM CDT CCPD initiated per protocol and per order. Aury, SPEECH AND HEARING CLINIC DIRECTOR notified and contact phone number left atthe bedside. * Jaja Mojica RN - 06/17/2022 12:21 PM CDT Pt's CCPD tx ended per protocol. Last fill of 0mL, total UF of 1213 clear, yellow, non odorous effluent. Aury, SPEECH AND HEARING CLINIC DIRECTOR notified. Setting up next CCPD ordered to [...] without redness or drainage. Skin cleaned with Tasley Secura skin cleanser, dried, then a thin [...] Blood flow and pressures WNL. Spoke to SPEECH AND HEARING CLINIC DIRECTORLUAN Ramos, she has no questions or concerns [...] on venous line. Blood flow and pressures WNL.extruder operator has no questions or concerns at present [...] 06/07/2022 7:32 PM CD[place] [id number] at 1637 and all initial hookups made. [...] degrees with alexander cord on return line. SPEECH AND HEARING CLINIC DIRECTOR has no questions or concerns at this [...] orders [place]. [place] [address] ml over 4Cycles of 2800 ml each [...] gout, BEN on CPAP initially presented to [facility] for generalized weakness, n/v, diarrhea, and [...] another 6u IV regular insulin given 06/08: [facility] - -C/f DKA given BG in 300s, [...] started to prevent him from going to mkmhsve63/20: CCM - #DKA - resolved In CCU, [...] part of the patient???s medical record. Sincerely, [facility] Information Management GER GALLERY * Consults, Subsequent - Dora Delarosa NP - 06/29/2022 12:55 PM MANAGER GALLERY Endocrinology & Diabetes Progress Note Patient: Adelia Garvin Jr., 51 y.o. male (: 1970) Room: [place] [id number] ( ) LOS: 25 Adelia Garvin Jr. [...] agitation. 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, complicated by ESRD on PD, CAD s/p PCI, CHF - HbA1c 7.4% - Uses Omnipod and Dexcom G6 at home, not currently on this- doesn't have the supplies -On significantly higher basal rates on pump at night due to peritoneal dialysis -home settings: Basal rate 0330 >>1.7 0800 >> 0.8 2000 >> 5.8 ICR1:6.5 ISF1:25 IDG180 TIA 4 Over the previous 24 hours, [...] recommend increasing the basal insulin dose from 4781-3094 today. We will continue to intensely monitor [...] yearly or sooner as indicated by your reporting specialist # ESRD on PD - CKD and ESRD are independent risk factors for hypoglycemia ## Discharge Planning - Follow-up with home skiver counter -- Dora Delarosa NP Endocrinology, Metabolism, & Lipid Research Contact Info: New Consults: [phone]) General Endocrine (Non-Diabetes): [phone] (Check 'Treatment Team' assignment for Diabetes 1 vs 2 vs 3) Diabetes 1: Diabetes Fellow: [phone] Diabetes 2: Dora Delarosa NP: [phone] Diabetes 3: See Treatment Team Provider (or call Dora Delarosa, above) Diabetes After-Hours & Weekends: Diabetes Fellow GER GALLERY * Plan of Care - Elsie Gonzalez RN - 06/29/2022 11:32 AM CST [facility] [address] Post Acute Care Transfer Report Adelia Garvin Jr. , : 1970, Sex: M Adm: 06/04/2022, D/C: Post Acute Care Transfer Report Patient Demographics Address [address] [place] [address] (Home) *Preferred* E-mail Address [email or web address] Primary Care Provider Aditya Castro MD [facility] Parent Location Code Status Information Code Status [...] Valerio PA Hyperlipidemia 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[place] artery of [place] heart with stable angina pectoris (CMS/[facility]) (HCC) 05/23/2017 - Present 06/22/2022 by Luiz [...] Valerie Added automatically from request for surgery [id number] DELETED: Angina pectoris (HCC) 06/04/2022 - Present [...] MD Added automatically from request for surgery [id number] Anemia 06/22/2022 - Present 06/29/2022 by Frank oBwers MD Entered by Luiz Lewis DO All Assessment & Plan Notes ESRD (end stage renal disease) ([facility]) ([facility]) 06/22/2022 - Present 06/29/2022 by Frank Bowers MD Entered by Luiz Lewis DO All Assessment & Plan Notes Acute on chronic HFrEF (heart failure with reduced ejection fraction) ([facility]) 06/22/2022 - Present 06/29/2022 by Frank Bowers MD Entered by Luiz Lewis DO All Assessment & Plan Notes Atrial fibrillation ([facility]) ([facility]) 06/22/2022 - Present 06/29/2022 by Frank Bowers MD Entered by Luiz Lewis DO All Assessment & Plan Notes Principal NSTEMI (non-ST elevated myocardial infarction) ([facility]) ([facility]) 06/22/2022 - Present 06/29/2022 by Frank Bowers MD Entered by Luiz Lewis DO All Assessment & Plan Notes Cardiogenic shock ([facility]) 06/22/2022 - Present 06/29/2022 by Frank Bowers [...] ...filed at 06/04/2022 2300 Patient Language and Yazidism Flowsheet Row Most Recent Value Patient's Preferred [...] 06/29/22 0700 - 06/30/22 0659 Total Total 0336-3610 4013-5404 8357-6288 Total 9549-6011 5956-2287 5878-5035 Total Intake (ml) 93092 92835 400 360 49980 09395 360 -- -- 360 Output (ml) 57878 70874 150 -- 57709 34012 -- -- -- -- Net (ml) -1709 [...] as: PriLOSEC acetaminophen (TYLENOL) tablet 1,000 mg [[id number]] Ordering Provider: Luiz Lewis DO Status: Dispensed Ordered On: 06/22/221923 Start: 06/22/221929 Ordered Dose (Remaining/Total): 1,000 mg (--/--) Route: oral Frequency: Every 6 hours PRN Ordered Rate/Order Duration: -- / -- Timestamps Action Dose Route Other Information Performed 06/27/221746 Documented: 06/27/221746 Given 1,000 mg oral Performed by: Manda Lake RN Scanned Package: 17227-356-41, 27932-620-84 acetaminophen (TYLENOL) tablet 325 mg [[id number]] Ordering Provider: Meme Castro MD Status: Completed (Past End Date/Time) Ordered On: 06/15/22 1014 Starts/Ends: 06/15/22 1045 - 06/15/22 0945 Ordered Dose (Remaining/Total): 325 mg (0/1) Route: oral Frequency: Once Ordered Rate/Order Duration: -- / -- Timestamps Action Dose Route Other Information Performed 06/15/22 0945 Documented: 06/15/22 1104 Given 325 mg oral Performed by: Ravi Hollingsworth RN Scanned Package: [address]-3 albuterol HFA (PROVENTIL HFA,VENTOLIN HFA,PROAIR HFA) 90 mcg/actuation inhaler 2 puff [[id number]] Ordering Provider: Fernando Torres MD Status: Dispensed Ordered On: 06/05/22244 Start: 06/05/22228 Ordered Dose (Remaining/Total): 2 puff (--/--) Route: inhalation Frequency: Every 6 hours PRN (incident response manager) Ordered Rate/Order Duration: -- / -- Timestamps Action Dose Route Other Information Performed 06/15/22249 Documented: 06/15/22252 Given 2 puff inhalation Performed by: Juanito Hernandez RRT Scanned Package: 8907-9293-41 alteplase (CATHFLO) 1 mg/mL syringe (premix) 1 mg [[id number]] Ordering Provider: Lavern Morrison MD Status: Completed (Past End Date/Time) Ordered On: 06/09/22409 Starts/Ends: 06/09/22444 - 06/09/22447 Ordered Dose (Remaining/Total): 1 mg (0/1) Route: intra-catheter Frequency: Once Ordered Rate/Order Duration: -- / -- Admin Instructions: 60 to 120 minute dwell time. Refrigerate Timestamps Action Dose Route Other Information Performed 06/09/22447 Documented: 06/09/22447 Given 1 mg intra-catheter Performed by: Rachel Masters RN Scanned Package: 8779-9382-36 alteplase (CATHFLO) 1 mg/mL syringe (premix) 1 mg [[id number]] Ordering Provider: Robert Henry MD Status: Completed [...] Performed by: Manda Pickett RN Scanned Package: 5273-9564-13 alteplase (CATHFLO) 1 mg/mL syringe (premix) 2 mg [[id number]] Ordering Provider: Robert Henry MD Status: Completed (Past End Date/Time) Ordered On: 06/11/221655 Starts/Ends: 06/11/221729 - 06/11/221809 Ordered Dose (Remaining/Total): 2 mg (0/1) Route: intra-catheter Frequency: Once Ordered Rate/Order Duration: -- / -- Admin Instructions: 60 to 120 minute dwell time. Refrigerate Timestamps Action Dose Route Other Information Performed 06/11/221809 Documented: 06/11/221809 Given 2 mg intra-catheter Performed by: Manda Pickett RN Scanned Package: 6513-0368-75, 3560-8560-74 alteplase (CATHFLO) 1 mg/mL syringe (premix) 2 mg [[id number]] Ordering Provider: Robert Henry MD Status: Completed (Past End Date/Time) Ordered On: 06/11/221655 Starts/Ends: 06/11/221729 - 06/11/221810 Ordered Dose (Remaining/Total): 2 mg (0/1) Route: intra-catheter Frequency: Once Ordered Rate/Order Duration: -- / -- Admin Instructions: 60 to 120 minute dwell time. Refrigerate Timestamps Action Dose Route Other Information Performed 06/11/221810 Documented: 06/11/221810 Given 2 mg intra-catheter Performed by: Manda Pickett RN Scanned Package: 6259-7850-40, 9191-1389-63 amiodarone (NEXTERONE) 150 mg/100 mL (1.5 mg/mL) in dextrose (premix) 150 mg [[id number]] Ordering Provider: Jeffrey Green MD Status: Completed [...] (1.5 mg/mL) in dextrose (premix) 150 mg [[id number]] Ordering Provider: Lavern Morrison MD Status: Completed [...] Performed by: Carlos Esparza RN Scanned Package: 68974-554-60 amiodarone (NEXTERONE) 150 mg/100 mL (1.5 mg/mL) in dextrose (premix) 150 mg [[id number]] Ordering Provider: Lavern Morrison MD Status: Completed [...] Performed by: Carlos Esparza RN Scanned Package: 95282-766-19 amiodarone (NEXTERONE) 150 mg/100 mL (1.5 mg/mL) in dextrose (premix) 150 mg [[id number]] Ordering Provider: Tyra De La Torre MD [...] Escobar RN aspirin chewable tablet 81 mg [[id number]] Ordering Provider: Marcelina Pickard NP Status: Completed (Past End Date/Time) Ordered On: 06/07/22 1112 Starts/Ends: 06/07/22 1145 - 06/07/22 1137 Ordered Dose (Remaining/Total): 81 mg (0/1) Route: oral Frequency: Once Ordered Rate/Order Duration: -- / -- Timestamps Action Dose Route Other Information Performed 06/07/22 1137 Documented: 06/07/22 1138 Given 81 mg oral Performed by: Carolyn Troncoso RN Scanned Package: 9588-0164-30 aspirin chewable tablet 81 mg [[id number]] Ordering Provider: Luiz Lewis DO Status: Dispensed Ordered On: 06/22/22 1924 Start: 06/23/22 0900 Ordered Dose (Remaining/Total): 81 mg (--/--) Route: oral Frequency: Daily Ordered Rate/Order Duration: -- / -- Timestamps Action Dose Route Other Information Performed 06/29/22 0823 Documented: 06/29/22 0824 Given 81 mg oral Performed by: Manda Lake RN Scanned Package: 5198-1374-86 atorvastatin (LIPITOR) tablet 80 mg [[id number]] Ordering Provider: Luiz Lewis DO Status: Dispensed Ordered On: 06/22/221923 Start: 06/23/22899 Ordered Dose (Remaining/Total): 80 mg (--/--) Route: oral Frequency: Daily Ordered Rate/Order Duration: -- / -- Timestamps Action Dose Route Other Information Performed 06/29/22822 Documented: 06/29/22823 Given 80 mg oral Performed by: Manda Lake RN Scanned Package: [address]-1 azithromycin (ZITHROMAX) tablet 500 mg [[id number]] Ordering Provider: Russ Milner MD Status: Completed (Past End Date/Time) Ordered On: 06/05/225 Starts/Ends: 06/05/22899 - 06/05/22 0849 Ordered Dose (Remaining/Total): 500 mg (0/1) Route: oral Frequency: Once Ordered Rate/Order Duration: -- / -- Timestamps Action Dose Route Other Information Performed 06/05/22848 Documented: 06/05/22 0850 Given 500 mg oral Performed by: Nona Fernandez RN Scanned Package: [address]-9, [address]-6 barium sulfate (VARIBAR NECTAR) 40 % (w/v) nectar [[id number]] Ordering Provider: Tyra De La Torre MD [...] PUDDING) 40 % (w/v), 30% (w/w) pudding [[id number]] Ordering Provider: Tyra De La Torre MD [...] THIN LIQUID) 81 % (w/w) thin liquid [[id number]] Ordering Provider: Tyra De La Torre MD [...] % (w/v) 29% (w/w) suspension 250 mL [[id number]] Ordering Provider: Tyra De La Torre MD [...] ml given calcitRIOL (ROCALTROL) capsule 0.25 mcg [[id number]] Ordering Provider: Tyra De La Torre MD Status: Dispensed Ordered On: 06/22/22921 Start: 06/22/22 1000 Ordered Dose (Remaining/Total): 0.25 mcg (--/--) Route: oral Frequency: Daily Ordered Rate/Order Duration: -- / -- Timestamps Action Dose Route Other Information Performed 06/29/22822 Documented: 06/29/22823 Given 0.25 mcg oral Performed by: Manda Lake RN Scanned Package: 81910-705-53 calcium acetate(phosphat bind) (PHOSLO) capsule 667 mg [[id number]] Ordering Provider: Fernando Torres MD Status: Dispensed Ordered On: 06/05/22244 Start: 06/05/22799 Ordered Dose (Remaining/Total): 667 mg (--/--) Route: oral Frequency: 4 times daily Ordered Rate/Order Duration: -- / -- Admin Instructions: Take with food Timestamps Action Dose Route Other Information Performed 06/29/22822 Documented: 06/29/22823 Given 667 mg oral Performed by: Manda Lake RN Scanned Package: 14337-034-26 calcium carbonate (TUMS) chewable tablet 500 mg [[id number]] Ordering Provider: Earl Samuels MD Status: Completed (Past End Date/Time) Ordered On: 06/24/222111 Starts/Ends: 06/24/222144 - 06/24/222137 Ordered Dose (Remaining/Total): 200 mg of elemental calcium (0/1) Route: oral Frequency: Once Ordered Rate/Order Duration: -- / -- Timestamps Action Dose Route Other Information Performed 06/24/222137 Documented: 06/24/222137 Given 500 mg oral Performed by: Sasha Subramanian RN Scanned Package: 2426-0207-31 clopidogreL (PLAVIX) tablet 600 mg [[id number]] Ordering Provider: Finn Dupont MD Status: Completed (Past End Date/Time) Ordered On: 06/07/22806 Starts/Ends: 06/07/22844 - 06/07/22956 Ordered Dose (Remaining/Total): 600 mg (0/1) Route: oral Frequency: Once Ordered Rate/Order Duration: -- / -- Timestamps Action Dose Route Other Information Performed 06/07/22956 Documented: 06/07/22957 Given 600 mg oral Performed by: Caitlyn Guzman RN Scanned Package: 12681-346-07, 73897-645-22 clopidogreL (PLAVIX) tablet 75 mg [[id number]] Ordering Provider: Luiz Lewis DO Status: Dispensed Ordered On: 06/22/221923 Start: 06/23/22 0900 Ordered Dose (Remaining/Total): 75 mg (--/--) Route: oral Frequency: Daily Ordered Rate/Order Duration: -- / -- Timestamps Action Dose Route Other Information Performed 06/29/22822 Documented: 06/29/22823 Given 75 mg oral Performed by: Manda Lake RN Scanned Package: 5704-6205-25 Dianeal low calcium-dextrose 1.5 % 2,000 mL dialysis solution [[id number]] Ordering Provider: James Horvath MD Status: Dispensed [...] calcium-dextrose 2.5 % 2,000 mL dialysis solution [[id number]] Ordering Provider: Tom Mendez MD Status: Dispensed [...] calcium-dextrose 2.5 % 5,000 mL dialysis solution [[id number]] Ordering Provider: Yovanny Curtis MD Status: Dispensed [...] calcium-dextrose 2.5 % 5,000 mL dialysis solution [[id number]] Ordering Provider: Yovanny Curtis MD Status: Dispensed [...] calcium-dextrose 2.5 % 5,000 mL dialysis solution [[id number]] Ordering Provider: Tom Mendez MD Status: Dispensed [...] calcium-dextrose 2.5 % 5,000 mL dialysis solution [[id number]] Ordering Provider: Tom Mendez MD Status: Dispensed [...] Duckworth RN diphenhydrAMINE (BENADRYL) capsule 50 mg [[id number]] Ordering Provider: Veronica Tavares MD Status: Completed [...] oral Performed by: Caitlyn Guzman RN Comments: high density press laborer premed Scanned Package: 5484-0160-63 Extraneal 7.5% ULTRABAG 2,000 mL dialysis solution [[id number]] Ordering Provider: Tom Mendez MD Status: Dispensed (Past End Date/Time) Ordered On: 06/26/221308 Starts/Ends: 06/26/221344 - 06/27/221936 Ordered Dose (Remaining/Total): -- (--/--) Route: intraperitoneal Frequency: Continuous Ordered Rate/Order Duration: -- / -- Timestamps Action Dose / Rate / Duration Route Other Information Performed 06/26/221937 Documented: 06/26/221937 New Bag -- intraperitoneal Performed by: Pj Duckworth, LUAN ezetimibe (ZETIA) tablet 10 mg [[id number]] Ordering Provider: Luiz Lewis DO Status: Dispensed Ordered On: 06/22/22 1924 Start: 06/23/22 0900 Ordered Dose (Remaining/Total): 10 mg (--/--) Route: oral Frequency: Daily Ordered Rate/Order Duration: -- / -- Timestamps Action Dose Route Other Information Performed 06/29/22822 Documented: 06/29/22823 Given 10 mg oral Performed by: Manda Lake RN Scanned Package: 43642-987-03 furosemide (LASIX) 10 mg/mL injection 120 mg [[id number]] Ordering Provider: Dimitrios Hensley MD Status: Completed [...] Performed by: Nona Fernandez RN Scanned Package: 6680-9999-56, 5910-7008-93 gentamicin (GARAMYCIN) 0.1 % cream [[id number]] Ordering Provider: James Horvath MD Status: Dispensed [...] Performed by: Tequila Ingram RN Scanned Package: 38279-749-55 heparin 1,000 unit/mL injection 1.5-6.9 mL [[id number]] Ordering Provider: James Horvath MD Status: Completed (Past End Date/Time) Ordered On: 06/20/22 1224 Starts/Ends: 06/20/22 1300 - 06/20/221232 Ordered Dose (Remaining/Total): 1.5-6.9 mL (0/1) Route: intra-catheter Frequency: Once Ordered Rate/Order Duration: -- / -- Admin Instructions: Indwell volume of catheter lumens post treatment. Give volume based upon farmworker fur's recommendation (usual range 1.2 - 3 mL) in each lumen. Timestamps Action Dose Route Other Information Performed 06/20/221232 Documented: 06/20/221232 Given 3 mL intra-catheter Performed by: Margaret Escobar RN Scanned Package: 9194-0958-17 heparin 1,000 unit/mL injection 4,000 Units [[id number]] Ordering Provider: Russ Milner MD Status: Completed [...] Signoff by: Ayleen Doan RN Scanned Package: 5438-7106-11 heparin 5,000 unit/mL injection 5,000 Units [[id number]] Ordering Provider: Robert Henry MD Status: Dispensed Ordered On: 06/22/22 1107 Start: 06/22/22 1400 Ordered Dose (Remaining/Total): 5,000 Units (--/--) Route: subcutaneous Frequency: Every 8 hours scheduled Ordered Rate/Order Duration: -- / -- Timestamps Action Dose Route / Site Other Information Performed 06/29/22500 Documented: 06/29/22 0501 Given 5,000 Units subcutaneous Left Lower Abdomen Performed by: Radha Paul RN Scanned Package: 21138-954-10 heparin in 0.9% sodium chloride 25,000 unit/250 mL infusion (premix) [[id number]] Ordering Provider: Champ Osborne MD PhD Status: [...] age 6 months and up) 0.5 mL [[id number]] Ordering Provider: Champ Osborne MD PhD Status: Completed (Past End Date/Time) Ordered On: 06/04/222316 Starts/Ends: 06/04/222316 - 06/04/222335 Ordered Dose (Remaining/Total): 0.5 mL (0/1) Route: intramuscular Frequency: During hospitalization Ordered Rate/Order Duration: -- / -- Timestamps Action Dose Route / Site Other Information Performed 06/04/222335 Documented: 06/04/222337 Given 0.5 mL intramuscular Right Deltoid Performed by: Kristie Banegas RN Scanned Package: 95480-970-26 insulin lispro (HumaLOG, ADMELOG) 100 unit/mL injection 5 Units [[id number]] Ordering Provider: Lavern Morrison MD Status: Completed (Past End Date/Time) Ordered On: 06/22/22604 Starts/Ends: 06/22/22604 - 06/22/22621 Ordered Dose (Remaining/Total): 5 Units (0/1) Route: subcutaneous Frequency: Once Ordered Rate/Order Duration: -- / -- Timestamps Action Dose Route / Site Other Information Performed 06/22/22621 Documented: 06/22/22621 Given 5 Units subcutaneous Left Lower Abdomen Performed by: Annmarie Ayala RN Scanned Package: 2563-1856-15 insulin lispro (HumaLOG, ADMELOG) 100 unit/mL injection 5 Units [[id number]] Ordering Provider: Indiana Irwin III, MD Status: Completed (Past End Date/Time) Ordered On: 06/24/22 014 Starts/Ends: 06/24/22 0215 - 06/24/22156 Ordered Dose (Remaining/Total): 5 Units (0/1) Route: subcutaneous Frequency: Once Ordered Rate/Order Duration: -- / -- Timestamps Action Dose Route / Site Other Information Performed 06/24/22156 Documented: 06/24/22157 Given 5 Units subcutaneous Right Upper Arm Performed by: Mell Wild RN Scanned Package: 3921-8977-87 insulin lispro (HumaLOG, ADMELOG) 100 unit/mL injection 2 Units [[id number]] Ordering Provider: Carey East MD Status: Completed [...] Performed by: Adelita Self RN Scanned Package: 7065-9472-14 insulin regular (HumuLIN R, NovoLIN R) 100 unit/mL injection 4 Units [[id number]] Ordering Provider: Payam Connor MD Status: Completed [...] Signoff by: Milagros Hinojosa RN Scanned Package: 3238-2145-14 insulin regular (HumuLIN R, NovoLIN R) 100 unit/mL injection 6 Units [[id number]] Ordering Provider: Toyin Alberto MD Status: Completed (Past End Date/Time) Ordered On: 06/05/221429 Starts/Ends: 06/05/221514 - 06/05/221433 Ordered Dose (Remaining/Total): 6 Units (0/1) Route: intravenous Frequency: Once Ordered Rate/Order Duration: -- / -- Timestamps Action Dose Route Other Information Performed 06/05/221433 Documented: 06/05/221433 Given 6 Units intravenous Performed by: Nona Fernandez RN Dual Signoff by: Jacob Luna RN Scanned Package: 4270-3264-42 insulin regular (HumuLIN R, NovoLIN R) 100 unit/mL injection 5 Units [[id number]] Ordering Provider: Jeffrey Green MD Status: Completed (Past End Date/Time) Ordered On: 06/07/221746 Starts/Ends: 06/07/221829 - 06/07/221756 Ordered Dose (Remaining/Total): 5 Units (0/1) Route: intravenous Frequency: Once Ordered Rate/Order Duration: -- / -- Timestamps Action Dose Route Other Information Performed 06/07/221756 Documented: 06/07/221801 Given 5 Units intravenous Performed by: Figueroa Jack RN Dual Signoff by: Ravi Hollingsworth RN Scanned Package: 5088-2266-96 insulin regular (HumuLIN R, NovoLIN R) 100 unit/mL injection 7 Units [[id number]] Ordering Provider: Meme Castro MD Status: Completed [...] Signoff by: Rachel Masters RN Scanned Package: 7498-4375-51 insulin regular (HumuLIN R, NovoLIN R) 100 unit/mL injection 4 Units [[id number]] Ordering Provider: Jeffrey Green MD Status: Completed [...] Signoff by: Rachel Masters RN Scanned Package: 8035-5578-94 INSULIN SUBCUTANEOUS PUMP (HUMALOG) 100 UNITS/ML INSULIN PUMP INFUSION (HumaLOG) patient supplied pump 0-25 Units [[id number]] Ordering Provider: Dora Delarosa NP Status: Verified [...] ER (IMDUR) extended release tablet 30 mg [[id number]] Ordering Provider: Carey East MD Status: Dispensed [...] Performed by: Manda Lake RN Scanned Package: 6673-2132-80 lidocaine PF (XYLOCAINE) 10 mg/mL (1 %) preservative free injection [[id number]] Ordering Provider: Aric Cordova MD Status: Completed (Past End Date/Time) Ordered On: 06/18/22 123 Frequency: Code/trauma/sedation medication Timestamps Action Dose Route Other Information Performed 06/18/22 1231 Documented: 06/18/22 123 Given 10 mL Injection Performed by: Aric Cordova MD Documented by: Nick Delarosa RN losartan (COZAAR) tablet 12.5 mg [[id number]] Ordering Provider: Carey East MD Status: Dispensed Ordered On: 06/24/22 1718 Start: 06/25/22 09 Ordered Dose (Remaining/Total): 12.5 mg (--/--) Route: oral Frequency: Daily Ordered Rate/Order Duration: -- / -- Timestamps Action Dose Route Other Information Performed 06/29/22821 Documented: 06/29/22823 Given 12.5 mg oral Performed by: Manda Lake RN Scanned Package: 82120-847-00 magnesium sulfate 2 g/50 mL in water (premix) 2 g [[id number]] Ordering Provider: Jeffrey Green MD Status: Completed (Past End Date/Time) Ordered On: 06/18/221837 Starts/Ends: 06/18/221914 - 06/18/222024 Ordered Dose (Remaining/Total): 2 g (0/1) Route: intravenous Frequency: Once Ordered Rate/Order Duration: -- / 60 Minutes Timestamps Action Dose / Duration Route Other Information Performed 06/18/221924 Documented: 06/18/221924 New Bag 2 g 60 Minutes intravenous Performed by: Carlos Esparza RN Scanned Package: 7607-1175-89 metoprolol tartrate (LOPRESSOR) immediate release tablet 25 mg [[id number]] Ordering Provider: Carey East MD Status: Dispensed Ordered On: 06/26/22 1551 Start: 06/27/22 0900 Ordered Dose (Remaining/Total): 25 mg (--/--) Route: oral Frequency: 2 times daily Ordered Rate/Order Duration: -- / -- Timestamps Action Dose Route Other Information Performed 06/29/22821 Documented: 06/29/22823 Given 25 mg oral Performed by: Manda Lake RN Scanned Package: 32503-537-69 midazolam (VERSED) 1 mg/mL injection 2 mg [[id number]] Ordering Provider: Lavern Morrison MD Status: Completed (Past End Date/Time) Ordered On: 06/15/221756 Starts/Ends: 06/15/221829 - 06/15/221804 Ordered Dose (Remaining/Total): 2 mg (0/1) Route: intravenous Frequency: Once Ordered Rate/Order Duration: -- / -- Timestamps Action Dose Route Other Information Performed 06/15/221804 Documented: 06/15/221805 Given 2 mg intravenous Performed by: Ravi Hollingsworth RN Scanned Package: 3865-6432-78 midazolam (VERSED) bolus from bag 2 mg [[id number]] Ordering Provider: Jeffrey Green MD Status: Completed (Past End Date/Time) Ordered On: 06/16/221719 Starts/Ends: 06/16/22 1800 - 06/16/221744 Ordered Dose (Remaining/Total): 2 mg (0/1) Route: intravenous Frequency: Once Ordered Rate/Order Duration: -- / -- Timestamps Action Dose Route Other Information Performed 06/16/221744 Documented: 06/16/221756 Bolus from Bag 2 mg intravenous Performed by: Ravi Hollingsworth RN pantoprazole DR (PROTONIX) extended release tablet 40 mg [[id number]] Ordering Provider: Carey East MD Status: Dispensed Ordered On: 06/25/221156 Start: 06/26/22 09 Ordered Dose (Remaining/Total): 40 mg (--/--) Route: oral Frequency: Daily Ordered Rate/Order Duration: -- / -- Admin Instructions: Do not crush, chew, cut, dissolve, open or otherwise manipulate tablet/capsule. Timestamps Action Dose Route Other Information Performed 06/29/22821 Documented: 06/29/22823 Given 40 mg oral Performed by: Manda Lake RN Scanned Package: 0511-3161-12 perflutren protein-a (OPTISON) 0.22 mg/mL injection - ADS Override Pull [[id number]] Status: Completed (Past End Date/Time) Ordered On: [...] in sodium chloride 0.9% 8 mL syringe [[id number]] Ordering Provider: Meme Castro MD Status: Completed [...] CLASSIC) 1.4-0.6 % ophthalmic solution 1 drop [[id number]] Ordering Provider: Jeffrey Green MD Status: Dispensed Ordered On: 06/16/221911 Start: 06/16/222099 Ordered Dose (Remaining/Total): 1 drop (--/--) Route: each eye Frequency: 4 times daily Ordered Rate/Order Duration: -- / -- Timestamps Action Dose Route Other Information Performed 06/29/22821 Documented: 06/29/22823 Given 1 drop each eye Performed by: Manda Lake RN Scanned Package: 3956-9428-02 potassium chloride (KLOR-CON) packet 40 mEq [[id number]] Ordering Provider: Meme Castro MD Status: Completed [...] Performed by: Rachel Masters RN Scanned Package: [address]-3, [address]-0 potassium chloride 40 mEq/100 mL in sterile water (premix) 40 mEq [[id number]] Ordering Provider: Ashley Baer MD Status: Completed [...] mL in sterile water (premix) 40 mEq [[id number]] Ordering Provider: Meme Castro MD Status: Dispensed [...] Performed by: Rachel Masters RN Scanned Package: 4545-4061-67 potassium chloride ER (KLOR-CON) extended release tablet 30 mEq [[id number]] Ordering Provider: Tyra De La Torre MD [...] Performed by: Carlos Esparza RN Scanned Package: 46881-946-30, 88242-274-63, 11908-986-87 potassium chloride ER (KLOR-CON) extended release tablet 20 mEq [[id number]] Ordering Provider: Carey East MD Status: Completed [...] Performed by: Manda Lake RN Scanned Package: 8779-6304-76, 2191-1819-73 predniSONE (DELTASONE) tablet 50 mg [[id number]] Ordering Provider: Veronica Tavares MD Status: Completed (Past End Date/Time) Ordered On: 06/06/22 1344 Starts/Ends: 06/07/22 0000 - 06/07/22 1018 Ordered Dose (Remaining/Total): 50 mg (0/3) Route: oral Frequency: Every 6 hours Ordered Rate/Order Duration: -- / -- Admin Instructions: Call Radiology to schedule procedure after the 1st dose is administered. CT Rotary Soil Stabilizer Operator South: 7-[address] Rotary Soil Stabilizer Operator North: 7-5 After Timestamps Action Dose Route Other Information Performed 06/07/22 1018 Documented: 06/07/22 1019 Given 50 mg oral Performed by: Caitlyn Guzman RN Comments: high density press laborer premed Scanned Package: 3187-2640-92 ramelteon (ROZEREM) tablet 8 mg [[id number]] Ordering Provider: Marcelina Pickard NP Status: Dispensed Ordered On: 06/08/22918 Start: 06/08/22918 Ordered Dose (Remaining/Total): 8 mg (--/--) Route: feeding tube Frequency: Nightly PRN Ordered Rate/Order Duration: -- / -- Timestamps Action Dose Route Other Information Performed 06/08/222040 Documented: 06/08/222040 Given 8 mg feeding tube Performed by: Rachel Masters RN Scanned Package: [address]-2 sodium bicarbonate 8.4 % (1 mEq/mL) injection 50 mEq [[id number]] Ordering Provider: Champ Osborne MD PhD Status: [...] RN sodium chloride 0.9% IVPB 0-250 mL [[id number]] Ordering Provider: Meme Castro MD Status: Completed [...] Performed by: Carlos Esparza RN Scanned Package: 4894-8802-42 sodium chloride 0.9% IVPB 0-250 mL [[id number]] Ordering Provider: Robert Henry MD Status: Completed [...] Performed by: Margaret Escobar RN Scanned Package: 9226-9177-35 Rex Scale Flowsheet Row Most Recent Value [...] 06/23/2022129 Throat Intact ............filed at 06/23/2022129 Tongue Tasley, Moist ............filed at 06/23/2022129 Voice Deep ............filed at 06/22/2022 08 Mucous Membrane(s) Moist, Tasley ............filed at 06/22/2022 08 Teeth and Gums [...] last 72 hours COVID-19 Coronavirus RNA Nasopharyngeal [[id number]] Resulted: 06/28/22 1703, Result status: Final result Ordering provider: Frank Bowers MD 06/28/22 1517 Resulting lab: [facility] Narrative: Is the patient experiencing any symptoms consistent with COVID (eg. Fever, cough, shortness of breath)?->No What is the reason for testing?->Placement in post-acute care setting (Rapid) Interpretive data: Synonyms for this test include: PCR and NAAT . This test is performed using the [employer] Xpert Xpress plus assay. This is a [...] . This test is performed using the [employer] Xpert Xpress plus assay. This is a [...] COVID-19 RNA Negative Negative -- -- eGFR [[id number]] (Abnormal) Resulted: 06/27/22457, Result status: Final result Ordering provider: Carey East MD 06/27/22350 Resulting lab: [facility] Specimen Information Type Source Collected On Blood -- 06/27/22350 Components Component Value Reference Range Flag Lab eGFR 6 90 - 130 mL/min/1.73 m2 L Low -- Basic metabolic panel [[id number]] (Abnormal) Resulted: 06/27/22457, Result status: Final result Ordering provider: Carey East MD 06/26/22 1800 Resulting lab: [facility] Specimen Information Type Source Collected On Blood [...] mg/dL L Low -- CBC without differential [[id number]] (Abnormal) Resulted: 06/27/22434, Result status: Final result Ordering provider: Carey East MD 06/26/22 1800 Resulting lab: [facility] Specimen Information Type Source Collected On Blood [...] results found ECG/EMG Results ECG 12 lead [[id number]] Resulted: 06/23/22 1628, Result status: Final result Ordering provider: Carey East MD 06/23/22 1330 Resulted by: Hudson Sal Jr., MD PhD Accession number: [id number] Resulting lab: [facility] [place] Components Component Value Reference Range Flag Lab Ventricular Rate EKG/Min 100 BPM -- -- Atrial Rate 100 BPM -- -- MI-Interval (MSEC) 182 ms -- -- QRS-Interval (MSEC) 106 ms -- -- QT-Interval (MSEC) 380 ms -- -- QTc 490 ms -- -- R [place] -47 degrees -- -- T [place] 105 degrees -- -- Diagnosis -- -- [...] on 06/23/2022 4:28:23 PM ECG 12 lead [[id number]] Resulted: 06/23/22 1444, Result status: Preliminary result Ordering provider: Carey East MD 06/23/22 1330 Resulted by: Hudson Sal Jr., MD PhD Accession number: [id number] Resulting lab: [facility] [place] Component Value Reference Range Flag Lab Ventricular Rate EKG/Min 100 BPM -- -- Atrial Rate 100 BPM -- -- MI-Interval (MSEC) 182 ms -- -- QRS-Interval (MSEC) 106 ms -- -- QT-Interval (MSEC) 380 ms -- -- QTc 490 ms -- -- R [place] -47 degrees -- -- T [place] 105 degrees -- -- Diagnosis -- -- [...] depressed in Lateral leads ECG 12 lead [[id number]] Resulted: 06/22/22 1055, Result status: Final result Ordering provider: Fernando Torres MD 06/19/22 1255 Resulted by: Hudson Sal Jr., MD PhD Accession number: [id number] Resulting lab: [facility] [place] Component Value Reference Range Flag Lab Ventricular Rate EKG/Min 126 BPM -- -- Atrial Rate 63 BPM -- -- QRS-Interval (MSEC) 106 ms -- -- QT-Interval (MSEC) 360 ms -- -- QTc 521 ms -- -- R [place] -53 degrees -- -- T [place] 125 degrees -- -- Diagnosis -- -- [...] on 06/22/2022 10:55:43 AM ECG 12 lead [[id number]] Resulted: 06/21/22 1328, Result status: Final result Ordering provider: Fernando Torres MD 06/18/22 1831 Resulted by: Kenn Billingsley MD Accession number: [id number] Resulting lab: [facility] [place] Component Value Reference Range Flag Lab Ventricular Rate EKG/Min 133 BPM -- -- Atrial Rate 147 BPM -- -- QRS-Interval (MSEC) 102 ms -- -- QT-Interval (MSEC) 332 ms -- -- QTc 494 ms -- -- R [place] -43 degrees -- -- T [place] 123 degrees -- -- Diagnosis -- -- [...] on 06/21/2022 1:28:53 PM ECG 12 lead [[id number]] Resulted: 06/08/22 0942, Result status: Final result Ordering provider: Jeffrey Green MD 06/07/22 1647 Resulted by: Jess Bustos MD Accession number: [id number] Resulting lab: [facility] [place] Component Value Reference Range Flag Lab Ventricular Rate EKG/Min 51 BPM -- -- Atrial Rate 51 BPM -- -- MI-Interval (MSEC) 212 ms -- -- QRS-Interval (MSEC) 130 ms -- -- QT-Interval (MSEC) 580 ms -- -- QTc 534 ms -- -- P [place] 69 degrees -- -- R [place] -38 degrees -- -- T [place] 95 degrees -- -- Diagnosis -- -- [...] on 06/08/2022 9:42:26 AM ECG 12 lead [[id number]] Resulted: 06/07/22 0830, Result status: Final result Ordering provider: Toyin Alberto MD 06/05/221447 Resulted by: Jess Bustos MD Accession number: [id number] Resulting lab: [facility] [place] Component Value Reference Range Flag Lab Ventricular Rate EKG/Min 73 BPM -- -- Atrial Rate 73 BPM -- -- MI-Interval (MSEC) 184 ms -- -- QRS-Interval (MSEC) 106 ms -- -- QT-Interval (MSEC) 442 ms -- -- QTc 486 ms -- -- P [place] 49 degrees -- -- R [place] -33 degrees -- -- T [place] 87 degrees -- -- Diagnosis -- -- -- -- Result: Normal sinus rhythm Left axis deviation QS in V1 and V2, a nonspecific finding with multiple causes, including lead misplacement or septal infarction in 20% Abnormal ECG Confirmed by JESS BUSTOS M.D ([id number]) on 06/07/2022 8:30:06 AM ECG 12 lead [[id number]] Resulted: 06/07/22 06, Result status: Preliminary result Ordering provider: Toyin Alberto MD 06/05/221447 Resulted by: Jess Bustos MD Accession number: [id number] Resulting lab: [facility] [place] Component Value Reference Range Flag Lab Ventricular Rate EKG/Min 73 BPM -- -- Atrial Rate 73 BPM -- -- MI-Interval (MSEC) 184 ms -- -- QRS-Interval (MSEC) 106 ms -- -- QT-Interval (MSEC) 442 ms -- -- QTc 486 ms -- -- P [place] 49 degrees -- -- R [place] -33 degrees -- -- T [place] 87 degrees -- -- Diagnosis -- -- -- -- Result: Normal sinus rhythm Possible Left atrial enlargement Left axis deviation Septal infarct , age undetermined Abnormal ECG ECG 12 lead [[id number]] Resulted: 06/06/222156, Result status: Final result Ordering provider: Russ Milner MD 06/04/222154 Resulted by: Kenn Billingsley MD Accession number: [id number] Resulting lab: [facility] [place] Component Value Reference Range Flag Lab Ventricular Rate EKG/Min 47 BPM -- -- Atrial Rate 47 BPM -- -- MI-Interval (MSEC) 228 ms -- -- QRS-Interval (MSEC) 116 ms -- -- QT-Interval (MSEC) 532 ms -- -- QTc 470 ms -- -- P [place] 39 degrees -- -- R [place] -33 degrees -- -- T [place] 105 degrees -- -- Diagnosis -- -- -- -- Result: Sinus bradycardia with 1st degree A-V block Left axis deviation Incomplete left bundle branch block Nonspecific ST and T wave abnormality Long QTc When compared with ECG of 23-MAR-2017 00:14, MI interval has increased QTc has increased Rate has decreased by 15 bpm Incomplete left bundle branch block is now Present Criteria for Septal infarct are not Present Confirmed by KENN BILLINGSLEY M.D ([id number]) on 06/06/2022 9:57:10 PM ECG 12 lead [[id number]] Resulted: 06/06/22943, Result status: Preliminary result Ordering provider: Russ Milner MD 06/04/222154 Resulted by: Kenn Billingsley MD Accession number: [id number] Resulting lab: [facility] [place] Component Value Reference Range Flag Lab Ventricular Rate EKG/Min 47 BPM -- -- Atrial Rate 47 BPM -- -- MI-Interval (MSEC) 228 ms -- -- QRS-Interval (MSEC) 116 ms -- -- QT-Interval (MSEC) 532 ms -- -- QTc 470 ms -- -- P [place] 39 degrees -- -- R [place] -33 degrees -- -- T [place] 105 degrees -- -- Diagnosis -- -- -- -- Result: Sinus bradycardia with 1st degree A-V block Left axis deviation Incomplete left bundle branch block Abnormal QRS-T angle, consider primary T wave abnormality Abnormal ECG When compared with ECG of 23-MAR-2017 00:14, MI interval has increased Incomplete left bundle branch block is now Present Criteria for Septal infarct are no longer Present ECG 12 lead [[id number]] Resulted: 06/06/2232, Result status: Preliminary result Ordering provider: Toyin Alberto MD 06/05/22 1448 Resulted by: Jess Bustos MD Accession number: [id number] Resulting lab: [facility] [place] [employer] Component Value Reference Range Flag Lab Ventricular Rate EKG/Min 73 BPM -- -- Atrial Rate 73 BPM -- -- MI-Interval (MSEC) 184 ms -- -- QRS-Interval (MSEC) 106 ms -- -- QT-Interval (MSEC) 442 ms -- -- QTc 486 ms -- -- P [place] 49 degrees -- -- R [place] -33 degrees -- -- T [place] 87 degrees -- -- Diagnosis -- -- -- -- Result: Normal sinus rhythm Possible Left atrial enlargement Left axis deviation Septal infarct , age undetermined Abnormal ECG ECG 12 lead [[id number]] Resulted: 06/06/22 0909, Result status: Preliminary result Ordering provider: Russ Milner MD 06/04/222154 Resulted by: Kenn Billingsley MD Accession number: [id number] Resulting lab: [facility] [place] [employer] Component Value Reference Range Flag Lab Ventricular Rate EKG/Min 47 BPM -- -- Atrial Rate 47 BPM -- -- MI-Interval (MSEC) 228 ms -- -- QRS-Interval (MSEC) 116 ms -- -- QT-Interval (MSEC) 532 ms -- -- QTc 470 ms -- -- P [place] 39 degrees -- -- R [place] -33 degrees -- -- T [place] 105 degrees -- -- Diagnosis -- -- -- -- Result: Sinus bradycardia with 1st degree A-V block Left axis deviation Incomplete left bundle branch block Abnormal QRS-T angle, consider primary T wave abnormality Abnormal ECG When compared with ECG of 23-MAR-2017 00:14, MI interval has increased Incomplete left bundle branch block is now Present Criteria for Septal infarct are no longer Present Testing Performed By Lab - Abbreviation Name Director Address Valid Date Range 24 - [facility] Unknown 03/28/170 - Present Progress Notes - Encounter Notes Notes from 06/27/22 through 06/29/22 Progress Notes by So Lawrence OT at 06/27/2022 9:37 AM Version 1 of 1 Author: Debeer, So M., OT Specialty: Occupational Therapy Author Type: Occupational Therapist Filed: 06/27/2022 11:01 AM Date of Service: 06/27/2022 9:37 AM Status: Signed Bunch Maker Hand: So Lawrence OT (Occupational Therapist) Occupational Therapy [...] not assigned to this patient, please call [phone]. 06/27/22 0937 General Session Type Treatment OT [...] of Service: 06/27/2022 4:57 PM Status: Signed Bunch Maker Hand: Carey East MD (Physician) Daily Progress Note Division of Hospital Medicine Name: Adelia Garvin Jr. Today: June 27, 2022 : 1970 Age: 51 y.o. male Admit: 06/04/2022 Bed: [id number] Subjective Chief complaint: CAD s/p PCI, T1DM, [...] 06/27/2022 0745 Gross per 24 hour Intake 00612 ml Output 89390 ml Net -1949 ml Physical Exam Constitutional: [...] transferred to the floor, improving. Atrial fibrillation ([facility]) ([facility]) Assessment & Plan Converted to NSR overnight [...] failure with reduced ejection fraction) ([facility]) Assessment & Plan C/b cardiogenic shock requiring impella in the setting of cath and AHRF 2/2 pulmonary edema, now resolved. TTE demonstrating recovered EF 65% with grade I diastolic dysfunction. - metop as above - continue low dose losartan 12.5mg daily, ok per nephro - volume management per PD ESRD (end stage renal disease) ([facility]) ([facility]) Assessment & Plan - Renal consulted, s/p CRRT in the ICU now back on PD. - Continue vitamins for renal bone mineral disease - continue phoslo Type 1 diabetes mellitus ([facility]) Assessment & Plan A1c well controlled on [...] PD * NSTEMI (non-ST elevated myocardial infarction) ([facility]) ([facility]) Assessment & Plan With recurrent chest pain [...] of Service: 06/27/2022 3:50 PM Status: Signed Bunch Maker Hand: Arleen Andre MD (Physician) ASSESSMENT AND RECOMMENDATIONS ESRD: He is doing well on the current PD regimen. Ultrafilters approximately 4876-1895 ml/day. Continue current regimen Hypokalemia: Start Kcl [...] (mL): 785 mL Fill Volume In (mL): 97645 mL Effluent Volume Out (mL): 78828 ml Balance This Exchange (mL): 1944 mL [...] Weight: Height: PD CATHETER: PD Catheter Site: [facility] PD Site Assessment: other findings scaly skin around the site Other findings: pleasant, conversing appropriately. Mild peripheral edema I/O last 2 completed shifts: In: 38867 [P.O.:440; Other:04867] Out: 48176 [Urine:300; Other:34704] I have reviewed current medications and the [...] FERRITIN 2,062 (H) 06/07/2022 Arleen Andre MD home care specialist Division of Nephrology Progress Notes by Frank Bowers MD at 06/28/2022 3:30 PM Version 1 of Author: Frank Bowers MD Specialty: Internal Medicine Author Type: Physician Filed: 06/28/2022 3:30 PM Date of Service: 06/28/2022 3:30 PM Status: Signed Bunch Maker Hand: Frank Bowers MD (Physician) Daily Progress Note Division of Hospital Medicine Name: Adelia Garvin Jr. Today: June 28, 2022 : 1970 Age: 51 y.o. male Admit: 06/04/2022 Bed: [id number] Subjective Chief complaint: NSTEMI Interval History: Pt [...] 06/28/2022 1300 Gross per 24 hour Intake 18404 ml Output 66865 ml Net -851 ml Physical Exam Constitutional: [...] * NSTEMI (non-ST elevated myocardial infarction) (CMS/HCC) ([facility]) Assessment & Plan With recurrent chest pain [...] been accepted ESRD (end stage renal disease) ([facility]) ([facility]) Assessment & Plan - Renal consulted, s/p CRRT in the ICU now back on PD. Tolerated well and nephrology following - Trialysis catheter removed - Continue vitamins for renal bone mineral disease. Type 1 diabetes mellitus ([facility]) Assessment & Plan A1c well controlled on [...] increase NPH 45u before PD Atrial fibrillation ([facility]) ([facility]) Assessment & Plan Converted to NSR overnight [...] failure with reduced ejection fraction) ([facility]) Assessment & Plan C/b cardiogenic shock requiring [...] and trend Hb. Acute hypoxemic respiratory failure ([facility]) Assessment & Plan Secondary to ACS and flash pulmonary edema, since resolved and extubated on 06/19. Patient passed barium swallow on 06/21. Progress Notes by Frank Bowers MD at 06/29/2022 10:12 AM Version 1 of 1 Author: Frank Bowers MD Specialty: Internal Medicine Author Type: Physician Filed: 06/29/2022 10:12 AM Date of Service: 06/29/2022 10:12 AM Status: Signed Bunch Maker Hand: Frank Bowers MD (Physician) Daily Progress Note Division of Hospital Medicine Name: Adelia Garvin Jr. Today: June 29, 2022 : 1970 Age: 51 y.o. male Admit: 06/04/2022 Bed: [id number] Subjective Chief complaint: NSTEMI Interval History: Pt [...] 06/29/2022 0815 Gross per 24 hour Intake 85012 ml Output 79218 ml Net -664 ml Physical Exam Constitutional: NAD, well developed, well nourished Eyes: PERRL, EOMI, anicteric ENT: NCAT, oropharynx normal, moist mucus membranes Lungs: Clear to auscultation in all lung charlse, unlabored Cardiovascular: RRR, normal S1 and S2, [...] Resolved. * NSTEMI (non-ST elevated myocardial infarction) (CMS/[facility]) ([facility]) Assessment & Plan With recurrent chest pain [...] today ESRD (end stage renal disease) (CMS/HCC) ([facility]) Assessment & Plan - Renal consulted, s/p [...] start of peritoneal dialysis session Atrial fibrillation ([facility]) ([facility]) Assessment & Plan Converted to NSR overnight [...] failure with reduced ejection fraction) ([facility]) Assessment & Plan C/b cardiogenic shock requiring [...] of Service: 06/29/2022 10:13 AM Status: Signed Bunch Maker Hand: Frank Bowers MD (Physician) Inpatient Discharge Summary BRIEF OVERVIEW Admitting Provider: Catherine Adams MD Discharge Provider: Frank Bowers MD Primary Care Physician at Discharge: Aditya Castro MD [phone] Admission Date: 06/04/2022 Discharge Date: 06/29/2022 Admission Location: [facility] Problems/Diagnoses: Principal Problem: NSTEMI (non-ST elevated myocardial infarction) ([facility]) ([facility]) Active Problems: Cardiogenic shock ([facility]) Type 1 diabetes mellitus ([facility]) ESRD (end stage renal disease) ([facility]) ([facility]) Acute hypoxemic respiratory failure ([facility]) Anemia Acute on chronic HFrEF (heart failure with reduced ejection fraction) ([facility]) Atrial fibrillation ([facility]) ([facility]) Resolved Problems: No resolved hospital problems. DETAILS OF HOSPITAL STAY Presenting Problem/History of Present Illness: As per Admission H&P AC), HTN, CAD s/p stent 04/06 and 3 stent 12/07, T1DM (insulin pump at home), ESRD on PD, HLD, GERD, hyperparathyroidism, DDD, OA, gout, BEN on CPAP initially presented to [facility] for n/v andchest pain, transferred to [facility] for LHC/PCI, now presenting to CCU s/p complex PCI with impella and intubated. At the OSH he presented with 3d generalized weakness, chills, ROONEY, n/v, chest pain relieved by sublingual ntg. His labs were notable for trop 1.0-->1.09-->0.729, BNP 57322. He had a CT CAP showing cholelithiasis [...] circumflex as optimal treatment, prompting transfer to [place]. He arrived at [place] 06/05. EKG showed sinus bradycardia, 1st deg [...] 06/22. * NSTEMI (non-ST elevated myocardial infarction) (CMS/[facility]) ([facility]) With interventions described above. Post-transfer and post-cath, [...] on discharge given pressure tolerance. Atrial fibrillation ([facility]) ([facility]) He was in atrial fibrillation on transfer [...] failure with reduced ejection fraction) ([facility]) He developed cardiogenic shock requiring impella in the setting of cath c/b AHRF 2/2 pulmonary edema. Post-cath, TTE demonstrated recovered EF 65% with grade I diastolic dysfunction. Volume was managed with CRRT in ICU, then by resumption of PD on the medical floor. In discussion with nephrology, low dose losartan was started for GDMT in addition to metoprolol. ESRD (end stage renal disease) ([facility]) ([facility]) Renal consulted on admission with history of ESRD on PD. While in ICU, temporary dialysis catheter was placed to facilitate CRRT for volume removal. Upon transfer to the floor, PD was continued and tolerated well. He was continued on his home vitamins for renal bone mineral disease and phoslo. Trialysis removed 06/25. Type 1 diabetes mellitus ([facility]) Prior to admission, his A1c was well [...] REMOVE PERC ARTERIAL VAD (IMPELLA), DIFFERENT SESSION 24481 Other Procedures: Pertinent Test Results: See hospital [...] Influenza, Quadrivalent, Split, Preservative Free, Intramuscular 06/04/22 [employer] ([employer] SARS-CoV-2 Vaccination 11/04/20 Moderna SARS-CoV-2 Vaccination (12+ YRS) 09/21/21 Generated by [id number] at 06/29/22 11:31 AM Page GER GALLERY * Assessment & Plan Note - Frank Bowers MD - 06/29/2022 10:12 AM MANAGER GALLERY Associated Problem(s): Atrial fibrillation (CMS/HCC) (HCC) Converted to NSR overnight on 06/24. CHADsVASc of 4 not on anticoagulation prior to admission. - cardiology consulted - recommended ongoing rate control - holding off on a/c with high risk for bleeding while on DAPT - reduced metop to 25mg BID in the setting of hypotension, HR 70s NSR GER GALLERY * Assessment & Plan Note - Frank Bowers MD - 06/29/2022 10:12 AM MANAGER GALLERY Associated Problem(s): Acute on chronic HFrEF (heart failure with reduced ejection fraction) (HCC) C/b cardiogenic shock requiring impella in the setting of cath and AHRF 2/2 pulmonary edema, now resolved. TTE demonstrating recovered EF 65% with grade I diastolic dysfunction. - metop as above - continue low dose losartan 12.5mg daily, ok per nephro. Tolerating well - volume management per PD GER GALLERY * Assessment & Plan Note - Frank Bowers MD - 06/29/2022 10:12 AM MANAGER GALLERY Associated Problem(s): Anemia Stable, likely 2/2 anemia from ESRD, no evidence of bleeding. Underwent CT c/a/p without internal hematoma. - Monitor and trend Hb. GER GALLERY * Assessment & Plan Note - Frank Bowers MD - 06/29/2022 10:12 AM MANAGER GALLERY Associated Problem(s): Acute hypoxemic respiratory failure (HCC) Secondary to ACS and flash pulmonary edema, since resolved and extubated on 06/19. Patient passed barium swallow on 06/21. GER GALLERY * Assessment & Plan Note - Frank Bowers MD - 06/29/2022 10:12 AM MANAGER GALLERY Associated Problem(s): ESRD (end stage renal disease) (CMS/HCC) (HCC) - Renal consulted, s/p CRRT in the ICU now back on PD. Tolerated well and nephrology following - Trialysis catheter removed - Continue vitamins for renal bone mineral disease. GER GALLERY * Assessment & Plan Note - Frank Bowers MD - 06/29/2022 10:11 AM MANAGER GALLERY Associated Problem(s): Type 1 diabetes mellitus (HCC) [...] units with start of peritoneal dialysis session GER GALLERY * Assessment & Plan Note - Frank Bowers MD - 06/29/2022 10:11 AM MANAGER GALLERY Associated Problem(s): Cardiogenic shock (HCC) Secondary to NSTEMI, s/p Impella since removed on 06/10. Resolved. GER GALLERY * Assessment & Plan Note - Frank Bowers MD - 06/29/2022 10:11 AM MANAGER GALLERY Associated Problem(s): NSTEMI (non-ST elevated myocardial infarction) [...] Pt overall improving, DC to rehab today GER GALLERY * Subjective & Objective - Frank Bowers MD - 06/29/2022 10:10 AM MANAGER GALLERY Daily Progress Note Division of Hospital Medicine Name: Adelia Garvin Jr. Today: June 29, 2022 : 1970 Age: 51 y.o. male Admit: 06/04/2022 Bed: [id number] Subjective Chief complaint: NSTEMI Interval History: Pt [...] 06/29/2022 0815 Gross per 24 hour Intake 32400 ml Output 11198 ml Net -664 ml Physical Exam Constitutional: [...] controlled, some low 200 Negative covid test. GER GALLERY * Plan of Care - [place] [...] to chair, discharge to inpatient rehab today GER GALLERY * Summary of Treatment Recommendations Non-Billable - [...] yearly or sooner as indicated by your reporting specialist Pending results for primary service or primary care physician to follow up on: None at time of discharge Follow Up Plan: Follow up with endocrinology near his home 1-2 weeks after discharge to reassess glycemic management and adjust insulin pump settings as needed. GER GALLERY * Plan of Care - Gucci Macedo RRT - 06/29/2022 1:28 AM CST BEN Continue on NPPV GER GALLERY * Consults, Subsequent - James Horvath MD - 06/28/2022 5:36 PM MANAGER GALLERY NEPHROLOGY CONSULT SUBSEQUENT VISIT INTERVAL HISTORY: NAEO. [...] 06/27/22699 - 06/28/2265806/28/22699 - 06/29/22 0659 Shift 8439-0596 7999-7290 24 Hour Total 1899-0659 24 Hour Total INTAKE P.O. 400 400 Other 42958 07929 Shift Total(mL/kg) 82763(101.4) 29926(101.4) 400(3.3) 400(3.3) OUTPUT Urine(mL/kg/hr) 200(0.1) 200(0.1) 150 150 Other 06932 04769 Shift Total(mL/kg) 200(1.7) 36772(110.5) 38257(112.2) 150(1.2) 150(1.2) NET -200 -1101 -1301 250 [...] Fellow PGY-4 Consult 1 Service Contact (phone): [phone] After hours and weekends: please page [phone] Cosigned by Arleen Andre MD at 06/28/2022 8:35 PM MANAGER GALLERY GER GALLERY GER GALLERY Associated attestation - Arleen Andre MD - 06/28/2022 8:35 PM MANAGER GALLERY I saw and examined the patient on 06/28/2022. I have discussed the patient's management with the nephrology fellow/resident. I agree with the findings, assessment and plan of care as documented in thefellow's/resident's note. Additional history, findings, assessment and recommendations, if any, are outlined below. Arleen Andre MD home care specialist Division of Nephrology * Subjective & Objective - Frank Bowers MD - 06/28/2022 3:21 PM MANAGER GALLERY Daily Progress Note Division of Hospital Medicine Name: Adelia Garvin Jr. Today: June 28, 2022 : 1970 Age: 51 y.o. male Admit: 06/04/2022 Bed: [id number] Subjective Chief complaint: NSTEMI Interval History: Pt [...] 06/28/2022 1300 Gross per 24 hour Intake 47460 ml Output 08908 ml Net -851 ml Physical Exam Constitutional: [...] this written report and agrees with it. GER GALLERY * Plan of Care - Elsie Gonzalez RN - 06/28/2022 3:16 PM CST Adjunct Faculty Mathematics Department noted patient has been recommended for inpatient rehab by PT/OT. manager stylist met withthe patient at bedside to discuss recommendations by therapy and to work on a potential discharge disposition plan. Adjunct Faculty Mathematics Department provided education to patient on inpt rehab facilities and the rehabilitation process.Patient reported he was interested in short term inpatient rehab. manager stylist explained to the patient the choices were limited due to his PD. Per patient request, CM sent referrals to inpatient rehab facilities near [facility] in [place] unable to accept PD at this time. CM sent referrals to [facility]. [facility] is able to accept PD patient and they have beds available tomorrow. Per patient choice will transfer to [facility] tomorrow. [facility] intake coord and care team notified of patient choice. GER GALLERY * Consults, Subsequent - Dora Delarosa NP - 06/28/2022 1:30 PM CST Endocrinology & Diabetes Progress Note Patient: Adelia Garvin Jr., 51 y.o. male (: 1970) Room: [place] [address] [address] ( ) LOS: 24 Adelia Garvin Jr. [...] agitation. 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 We will continue to intensely monitor [...] ## Discharge Planning - Follow-up with home skiver counter -- Dora Delarosa NP Endocrinology, Metabolism, & Lipid Research Contact Info: New Consults: [phone]) General Endocrine (Non-Diabetes): [phone] (Check 'Treatment Team' assignment for Diabetes 1 vs 2 vs 3) Diabetes 1: Diabetes Fellow: [phone] Diabetes 2: Dora Delarosa NP: [phone] Diabetes 3: See Treatment Team Provider (or call Dora Delarosa, above) Diabetes After-Hours & Weekends: Diabetes Fellow GER GALLERY * Plan of Care - Elsie Gonzalez RN - 06/28/2022 1:24 PM CST CM sent 5 more referrals in [facility] for inpt rehab- awaiting response from facility that can accept PD patients GER GALLERY * Plan of Care - [place] [...] up to chair, monitor tele and vitals GER GALLERY * Plan of Care - Sasha Leonard [...] on-going diet recs, safe swallow strategies, and FIRE CREW SPECIALIST POC, they verbalized understanding and agreement. ST to s/o. GER GALLERY * Hospital Course - Carey East MD - 06/27/2022 9:31 PM MANAGER GALLERY Adelia Garvin Jr. is 51 y.o. male [...] 06/22. * NSTEMI (non-ST elevated myocardial infarction) ([facility]) ([facility]) With interventions described above. Post-transfer and post-cath, [...] DAPT and atorvastatin as well. Atrial fibrillation ([facility]) ([facility]) He was in atrial fibrillation on transfer [...] failure with reduced ejection fraction) ([facility]) He developed cardiogenic shock requiring impella in the setting of cath c/b AHRF 2/2 pulmonary edema. Post-cath, TTE demonstrated recovered EF 65% with grade I diastolic dysfunction. Volume was managed with CRRT in ICU, then by resumption of PD on the medical floor. In discussion with nephrology, low dose losartan was started for GDMT in addition to metoprolol. ESRD (end stage renal disease) ([facility]) ([facility]) Renal consulted on admission with history of ESRD on PD. While in ICU, temporary dialysis catheter was placed to facilitate CRRT for volume removal. Upon transfer to the floor, PD was continued and tolerated well. He was continued on his home vitamins for renal bone mineral disease and phoslo. Trialysis removed 06/25. Type 1 diabetes mellitus ([facility]) Prior to admission, his A1c was well [...] barium swallow on 06/21. Remained on RA. GER GALLERY GER GALLERY * ECIN Note - Elsie Gonzalez RN [...] 06/27/22 0700 - 06/28/22 0659 Total Total 3737-2537 3327-9762 4399-4793 Total 7514-2024 5467-0863 5660-8768 Total Intake (ml) 17998 42969 340 100 71554 26458 -- -- -- -- Output (ml) 97032 64712 300 -- 60764 58412 200 -- -- 200 Net (ml) -2404 [...] -- SpO2 -- 92 % 96 % GER GALLERY * Consults, Subsequent - Dora Delarosa NP - 06/27/2022 1:13 PM CST Endocrinology & Diabetes Progress Note Patient: Adelia Garvin Jr., 51 y.o. male (: 1970) Room: [place] [address] ( ) LOS: 23 Adelia Garvin Jr. [...] labs, imaging, and diagnostics independently reviewed in [facility] and commented on below. Lab [...] agitation. 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, with fpc use of insulin, complicated by ESRD on PD, CAD s/p PCI, CHF - HbA1c 7.4% - Uses Omnipod and Dexcom G6 at home, not currently on this- doesn't have the supplies -On significantly higher basal rates on pump at night due to peritoneal dialysis -home settings: Basal rate 0330 >>1.7 0800 >> 0.8 2000 >> 5.8 ICR1:6.5 ISF1:25 [id number] TIA 4 Over the previous 24 hours, [...] ## Discharge Planning - Follow-up with home skiver counter -- Dora Delarosa NP Endocrinology, Metabolism, & Lipid Research Contact Info: New Consults: [phone]) General Endocrine (Non-Diabetes): [phone] (Check 'Treatment Team' assignment for Diabetes 1 vs 2 vs 3) Diabetes 1: Diabetes Fellow: [phone] Diabetes 2: Dora Delarosa NP: [phone] Diabetes 3: See Treatment Team Provider (or call Dora Delarosa, above) Diabetes After-Hours & Weekends: Diabetes Fellow GER GALLERY * Plan of Care - Adelita Self RN - 06/26/2022 3:00 PM CST Problem: Lack of Knowledge: Goal: Knowledge of disease or condition will improve Outcome: Progressing Goals: Clinical Goals for the Shift: up to chair Summary: Up to chair for about 2 hours. GER GALLERY * Plan of Care - Gucci Macedo, TOOL PUSHER - 06/26/2022 1:28 AM CDT BEN Continue [...] 0659 06/25/22 07 - 06/26/22 0659 Shift 3293-0505 2441-1363 24 Hour Total 0338-7056 8767-6184 24 Hour Total INTAKE Other 32453 83478 Shift Total(mL/kg) 76918(101.9) 22530(101.9) OUTPUT Other 38116 44273 Shift Total(mL/kg) 32512(122) 32859(122) NET -2404 -2404 Weight (kg) 119 119.7 [...] Fellow PGY-4 Consult 1 Service Contact (phone): [phone] After hours and weekends: please page [phone] Cosigned by Miriam Driver MD at 06/28/2022 8:11 AM MANAGER GALLERY GER GALLERY Associated attestation - Miriam Driver MD - 06/28/2022 8:11 AM MANAGER GALLERY I have seen and examined the patient on 06/25/22. I agree with the findings and plan of care as documented in the nephrology fellow's note. Miriam Driver MD [facility] Division of Nephrology * Plan of Care - Adelita Self RN - 06/25/2022 10:00 AM CDT Problem: Health Behavior: Goal: Understanding of discharge needs will improve Outcome: Progressing Goals: Clinical Goals for the Shift: up to chair Summary: Up to chair for short period this am. * Plan of Care - Wandy Garay, TOOL PUSHER - 06/25/2022 4:45 AM CDT NPPV Situation: [...] 0659 06/24/22 07 - 06/25/22 0659 Shift 3802-0254 3142-3886 24 Hour Total 7458-5534 4959-4579 24 Hour Total INTAKE Other 92365 77836 IV Piggyback 250 250 Shift Total(mL/kg) 250(2.1) 79837(101.5) 61428(103.6) OUTPUT Urine(mL/kg/hr) 250(0.2) 250(0.1) Emesis/NG output 0 0 Other 09506 52440 Stool 0 0 Shift Total(mL/kg) 53467(106.5) 77957(106.5) NET 250 -305 -582 Weight (kg) 119.9 119.9 119.9 119 119 [...] Fellow PGY-4 Consult 1 Service Contact (phone): [phone] After hours and weekends: please page [phone] Cosigned by Miriam Driver MD at 06/24/2022 8:25 PM CDT Associated attestation - Miriam Driver MD - 06/24/2022 8:25 PM CDT I have seen and examined the patient on 06/24/22. I agree with the findings and plan of care as documented in the nephrology fellow's note. Agree with endocrinology. Continue PD settings. Miriam Driver MD [facility] [employer] Division of Nephrology * Plan of Care [...] hygiene prior to po Specialty Instructions/Modifications: alert FIRE CREW SPECIALIST if pt coughing with meals FIRE CREW SPECIALIST noted pt was advanced to regular [...] updated diet recs, safe swallow strategies, and FIRE CREW SPECIALIST POC, they verbalized understanding and agreement. ST will briefly continue to follow. * Consults, Subsequent - Dora Delarosa, OPTICAL INSTRUMENT INSPECTOR - 06/24/2022 12:29 PM CDT Endocrinology & Diabetes Progress Note Patient: Adelia Garvin Jr., 51 y.o. male (: 1970) Room: [place] [address][id number] ( ) LOS: 20 Adelia Garvin Jr. [...] agitation. 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, complicated by ESRD on PD, CAD s/p PCI, CHF - HbA1c 7.4% - Uses Omnipod and Dexcom G6 at home, not currently on this- doesn't have the supplies -On significantly higher basal rates on pump at night due to peritoneal dialysis -home settings: Basal rate 0330 >>1.7 0800 >> 0.8 2000 >> 5.8 ICR1:6.5 ISF1:25 [id number] TIA 4 Over the previous 24 hours, [...] ## Discharge Planning - Follow-up with home skiver counter -- Dora Delarosa NP Endocrinology, Metabolism, & Lipid Research Contact Info: New Consults: [phone]) General Endocrine (Non-Diabetes): [phone] (Check 'Treatment Team' assignment for Diabetes 1 vs 2 vs 3) Diabetes 1: Diabetes Fellow: [phone] Diabetes 2: Dora Delarosa OPTICAL INSTRUMENT INSPECTOR: [phone] Diabetes 3: See Treatment Team Provider (or [...] assistance, please check the treatment team in [facility] for the assigned family independence case manager or contact the weekend Case [...] 06/24/2022 0536 Gross per 24 hour Intake 26312 ml Output 76287 ml Net -347 ml Physical Exam: General: [...] ESRD on PD who was transferred to [facility] for an impella-supported complex PCI on 06/07/22 [...] us if questions arise. Will Villavicencio MD Wall Worker 11:36 AM 06/24/22 Cosigned by Musa Fernando MD at 06/25/2022 9:04 PM CDT Associated attestation - Musa Fernando MD - 06/25/2022 9:04 PM CDT 06/24/2022 I have personally seen and examined this pt with resident/Fellow/OPTICAL INSTRUMENT INSPECTOR . I have reviewed History/Physical exam and plan for management. I agree with it . Musa Fernando M.D., Gerry. production statistical clerk [employer] [facility]. [place] This note contains information [...] about verbage above please contact me at [phone]. . * Plan of Care - Jefferson [...] 06/23/22 0606/23/22 07 - 06/24/22 0659 Shift 9558-8056 24 Hour Total 2071-2718 3005-4767 24 Hour Total INTAKE Other 30614 91146 IV Piggyback 250 250 Shift Total(mL/kg) 75085(101.2) 73407(101.2) 250(2.1) 250(2.1) OUTPUT Urine(mL/kg/hr) 450 450 Other 82547 65480 Shift Total(mL/kg) 31545(122.6) 52493(122.6) [facility] -2577 -2577 250 250 Weight (kg) 120.5 120.5 [...] topical, Daily heparin, 5,000 Units, subcutaneous, Q8H AHSLEY [START ON 06/24/2022] insulin glargine, 28 Units, [...] Fellow PGY-4 Consult 1 Service Contact (phone): [phone] After hours and weekends: please page [phone] Cosigned by Miriam Driver MD at 06/23/2022 8:48 PM CDT Associated attestation - Miriam Driver MD - 06/23/2022 8:48 PM CDT I have seen and examined the patient on 06/23/22. I agree with the findings and plan of care as documented in the nephrology fellow's note. Miriam Driver MD [facility] Division of Nephrology * Assessment & Plan [...] dc tomorrow as pt has been accepted GER GALLERY GER GALLERY * Assessment & Plan Note - Frank [...] the setting of hypotension, HR 70s NSR GER GALLERY * Assessment & Plan Note - Frank Bowers MD - 06/23/2022 4:47 PM CDT Associated Problem(s): Acute on chronic HFrEF (heart failure with reduced ejection fraction) ([facility]) C/b cardiogenic shock requiring impella in the setting of cath and AHRF 2/2 pulmonary edema, now resolved. TTE demonstrating recovered EF 65% with grade I diastolic dysfunction. - metop as above - continue low dose losartan 12.5mg daily, ok per nephro. Tolerating well - volume management per PD GER GALLERY * Assessment & Plan Note - Frank Bowers MD - 06/23/2022 4:47 PM CDT Associated Problem(s): ESRD (end stage renal disease) ([facility]) ([facility]) - Renal consulted, s/p CRRT in the ICU now back on PD. Tolerated well and nephrology following - Trialysis catheter removed - Continue vitamins for renal bone mineral disease. GER GALLERY * Assessment & Plan Note - Carey [...] resistant SSI increase NPH 45u before PD GER GALLERY * Consults, Subsequent - Dora Delarosa NP - 06/23/2022 1:48 PM CDT Endocrinology & Diabetes Progress Note Patient: Adelia Garvin Jr., 51 y.o. male (: 1970) Room: [place] [address] ( ) LOS: 19 Adelia Garvin Jr. [...] agitation. 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, with fpc use of insulin, complicated by ESRD on PD, CAD s/p PCI, CHF - HbA1c 7.4% - Uses Omnipod and Dexcom G6 at home, not currently on this- doesn't have the supplies -On significantly higher basal rates on pump at night due to peritoneal dialysis -home settings: Basal rate 0330 >>1.7 0800 >> 0.8 2000 >> 5.8 ICR1:6.5 ISF1:25 [id number] TIA 4 Over the previous 24 hours, [...] ## Discharge Planning - Follow-up with home skiver counter -- Dora Delarosa NP Endocrinology, Metabolism, & Lipid Research Contact Info: New Consults: [phone]) General Endocrine (Non-Diabetes): [phone] (Check 'Treatment Team' assignment for Diabetes 1 vs 2 vs 3) Diabetes 1: Diabetes Fellow: [phone] Diabetes 2: Dora Delarosa NP: [phone] Diabetes 3: See Treatment Team Provider (or [...] 0659 06/22/22 07 - 06/23/22 0659 Shift 5293-4880 24 Hour Total 4894-4037 6264-7765 24 Hour Total INTAKE I.V.(mL/kg) 133.2(1.1) Other 78913 07249 NG/GT 100 Shift Total(mL/kg) 48745(93.8) 23751.2(95.7) OUTPUT Urine(mL/kg/hr) 450 450 Emesis/NG output 0 Other 85217 55114 Shift Total(mL/kg) 55669(108.4) 34558(108.4) 450(3.7) 450(3.7) NET -1759 -1525.8 -450 -450 [...] Fellow PGY-4 Consult 1 Service Contact (phone): [phone] After hours and weekends: please page [phone] Cosigned by Miriam Driver MD at 06/23/2022 11:57 AM CDT Associated attestation - Miriam Driver MD - 06/23/2022 11:57 AM CDT I have seen and examined the patient on 06/22/22. I agree with the findings and plan of care as documented in the nephrology fellow's note. Mirima Driver MD [facility] [employer] Division of Nephrology * Assessment & Plan [...] 8:18 PM CDT Associated Problem(s): Atrial fibrillation ([facility]) ([facility]) -Currently rated controlled with metoprolol, CHADsVASc of 4 not on anticoagulation prior to admission. -Follow cardiology for initiation of AC. * Assessment & Plan Note - Luiz Lewis DO - 06/22/2022 8:16 PM CDT Associated Problem(s): Acute on chronic HFrEF (heart failure with reduced ejection fraction) ([facility]) -With acute exacerbation complicated by pulmonary edema since resolved. -Repeat TTE following Impella removal showed recovered EF of 65% with grade I diastolic dysfunction. -Continue metoprolol tartrate, start GDMT per cardiology. * Assessment & Plan Note - Luiz Lewis DO - 06/22/2022 8:15 PM CDT Associated Problem(s): ESRD (end stage renal disease) ([facility]) ([facility]) -Renal consulted, s/p CRRT in the ICU [...] for n/v and chest pain, transferred to [facility] for LHC/PCI, who presented to CCU s/p complex PCI with impella and intubated. Now extubated, tolerating PO intake, on home PD. Arrived at [place] from OSH on 06/05. EKG showed sinus [...] Elsie of the CREU service. QUESTIONS? Call [phone] * Subjective & Objective - Luiz Lewis, [...] at 06/22/20221944 Gross per 24 hour Intake 54302 ml Output 16431 ml Net -2209 ml Constitutional - chronically [...] made/in place: 51 yo male transferred to [facility] ICU for complex PCI with impella.Unable to [...] Patient and/or family are agreeable with plan. manager stylist will continue to follow and assist with discharge planning as needed. If any further discharge needs arise, please contact the covering family independence case manager. Rossi Hay RN * Consults, Subsequent - Dora Delarosa NP - 06/22/2022 12:39 PM CDT Endocrinology & Diabetes Progress Note Patient: Adelia Garvin Jr., 51 y.o. male (: 1970) Room: [place] [address] ( ) LOS: 18 Adelia Garvin Jr. [...] agitation. 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, with fpc use of insulin, complicated by ESRD on PD, CAD s/p PCI, CHF - HbA1c 7.4% - Uses Omnipod and Dexcom G6 at home, not currently on this- doesn't have the supplies -On significantly higher basal rates on pump at night due to peritoneal dialysis -home settings: Basal rate 0330 >>1.7 0800 >> 0.8 2000 >> 5.8 ICR1:6.5 ISF1:25 [id number] TIA 4 Over the previous 24 hours, [...] ## Discharge Planning - Follow-up with home skiver counter -- Dora Delarosa NP Endocrinology, Metabolism, & Lipid Research Contact Info: New Consults: [phone]) General Endocrine (Non-Diabetes): [phone] (Check 'Treatment Team' assignment for Diabetes 1 vs 2 vs 3) Diabetes 1: Diabetes Fellow: [phone] Diabetes 2: Dora Delarosa NP: [phone] Diabetes 3: See Treatment Team Provider (or call Dora Delarosa, above) Diabetes After-Hours & Weekends: Diabetes Fellow * Plan of Care - Jersey Castano, TOOL PUSHER - 06/22/2022 1:10 AM CDT Plan of [...] 0659 06/21/22 07 - 06/22/22 0659 Shift 3981-8744 5040-2480 24 Hour Total 5249-6830 9522-7923 24 Hour Total INTAKE I.V.(mL/kg) 225(1.8) 399.6(3.4) [...] Fellow PGY-4 Consult 1 Service Contact (phone): [phone] After hours and weekends: please page [phone] Cosigned by Miriam Driver MD at 07/04/2022 10:00 AM MANAGER GALLERY GER GALLERY Associated attestation - Miriam Driver MD - 07/04/2022 10:00 AM MANAGER GALLERY I have seen and examined the patient on 06/21/22. I agree with the findings and plan of care as documented in the nephrology Fellow's note. Miriam Driver MD [facility] Division of Nephrology * Consults, Subsequent - Dora Delarosa NP - 06/21/2022 1:09 PM CDT Endocrinology & Diabetes Progress Note Patient: Adelia Garvin Jr., 51 y.o. male (: 1970) Room: [place] [address][id number] ( ) LOS: 17 Adelia Garvin Jr. [...] labs, imaging, and diagnostics independently reviewed in [facility] and commented on below. Lab [...] agitation. 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, with fpc use of insulin, complicated by ESRD on PD, CAD s/p PCI, CHF - HbA1c 7.4% - Uses Omnipod and Dexcom G6 at home, not currently on this- doesn't have the supplies -On significantly higher basal rates on pump at night due to peritoneal dialysis -home settings: Basal rate 0330 >>1.7 0800 >> 0.8 2000 >> 5.8 ICR1:6.5 ISF1:25 [id number] TIA 4 Over the previous 24 hours, [...] ## Discharge Planning - Follow-up with home skiver counter -- Dora Delarosa NP Endocrinology, Metabolism, & Lipid Research Contact Info: New Consults: [phone] (-[phone]) General Endocrine (Non-Diabetes): [phone] (Check 'Treatment Team' assignment for Diabetes 1 vs 2 vs 3) Diabetes 1: Diabetes Fellow: [phone] Diabetes 2: Dora Delarosa OPTICAL INSTRUMENT INSPECTOR: [phone] Diabetes 3: See Treatment Team Provider (or [...] dialysis nursing of the conversation. I am educational fundraising director tonight, please do not hesitate to page if plans change. Chandrakant Nava MD Nephrology Fellow, PGY-4 Night Service [phone]. * Consults, Subsequent - Carol Sanchez MD - 06/20/2022 1:59 PM CDT Endocrinology & Diabetes Progress Note Patient: Adelia Garvin Jr., 51 y.o. male (: 1970) Room: [place] [id number] ( ) LOS: 16 Adelia Garvin Jr. [...] Plan 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, with fpc use of insulin, complicated by ESRD on PD, CAD s/p PCI, CHF - HbA1c 7.4% - Uses Omnipod and Dexcom G6 at home, not currently on this- doesn't have the supplies -On significantly higher basal rates on pump at night due to peritoneal dialysis -home settings: Basal rate 0330 >>1.7 0800 >> 0.8 2000 >> 5.8 ICR1:6.5 ISF1:25 [id number] TIA 4 High insulin requirements in setting [...] ## Discharge Planning - Follow-up with home skiver counter -- Carol Sanchez MD Endocrinology, Metabolism, & Lipid Research Contact Info: New Consults: [phone]) General Endocrine (Non-Diabetes): [phone] (Check 'Treatment Team' assignment for Diabetes 1 vs 2 vs 3) Diabetes 1: Diabetes Fellow: [phone] Diabetes 2: Dora Delarosa OPTICAL INSTRUMENT INSPECTOR: [phone] Diabetes 3: See Treatment Team Provider (or call Dora Delarosa, above) Diabetes After-Hours & Weekends: Diabetes Fellow * Plan of Care - Milly Cooper RN - 06/20/2022 12:41 PM CDT Rounds with MD, family independence case manager, social work, & charge nurse [...] Patient and family are agreeable with plan. manager stylist will continue to follow and assist with [...] eventually back to PD Miriam Driver MD [facility] Division of Nephrology * Consults, Subsequent - [...] AM Result Value Ref Range Product code [id number] Unit Number [id number] Product Blood Type APOS Dispense Status ISSUED [...] AM Result Value Ref Range Product code [id number] Unit Number [id number] Product Blood Type APOS Dispense Status RETURNED [...] not require specific follow up. Please call educational fundraising director pulmonary consult fellow with additional questions or [...] findings: I/O last 2 completed shifts: In: 13106.4 [I.V.:1014.4; Other:85880; NG/GT:190; IV Piggyback:420] Out: 13269 [Other:92669] I have reviewed current medications and the [...] 93% I/O last 2 completed shifts: In: 29157.4 [I.V.:1014.4; Other:38809; NG/GT:190; IV Piggyback:420] Out: 84668 [Other:93424] I/O this shift: In: 480.2 [I.V.:480.2] Out: [...] 0.9% I/O last 2 completed shifts: In: 60159.3 [I.V.:1388.3; Other:57279; NG/GT:90; IV Piggyback:110] Out: 03509 [Other:16308; Stool:170] Objective Vitals: Vitals: 06/18/22 1508 BP: [...] Pulmonary will continue to follow. Please call educational fundraising director pulmonary consult fellow with additional questions or [...] Post Procedure Note Attending: Dr Payam Allison Client Services Vice President: Dr. Aric Whitlock Sedation/Anesthesia: Local Pre-Op/Pre-Procedure Diagnosis: [...] 0659 06/18/22 07 - 06/19/22 0659 Shift 1720-2997 2245-8108 24 Hour Total 5752-5965 8193-8203 24 Hour Total INTAKE I.V.(mL/kg) 953(7.3) 435.3(3.3) 1388.3(10.6) 189(1.4) 189(1.4) Other 7498 7483 64902 56917 27530 NG/GT 90 90 160 160 IV Piggyback 110 110 Shift Total(mL/kg) 8561(65.8) 8008.3(61.1) 58734.3(126.4) 93993(94.3) 56029(94.3) OUTPUT Urine(mL/kg/hr) 0(0) 0(0) Other 9865 4663 72611 02566 43929 Stool 170 170 Shift Total(mL/kg) 9865(75.8) 5754(43.9) 14538(119.1) 87667(115.6) 12725(115.6) [facility] -1304 2254.3 950.3 -2790 -2790 Weight (kg) [...] Fellow PGY-4 Consult 1 Service Contact (phone): [phone] After hours and weekends: please page [phone] Cosigned by Miriam Driver MD at 06/18/2022 7:03 PM CDT Associated attestation - Miriam Driver MD - 06/18/2022 7:03 PM CDT I have seen and examined the patient on 06/18/2022. I agree with the findings and plan of care as documented in the nephrology Fellow's note. Miriam Driver MD [facility] Division of Nephrology * Pre-Procedure Note - [...] Diabetes mellitus (HCC) Diabetes mellitus type I ([facility]) Dialysis patient ([facility]) (HCC) ESRD on dialysis ([facility]) ([facility]) GERD (gastroesophageal reflux disease) Hyperlipidemia Hypertension [...] been discussed with the patient and/or their wholesale representative. All questions answered and they agree to proceed. * This addendum was created to correct the sedation plan. Patient is already intubated and sedated.We will continue with current sedation. * Plan of Care - Jersey Castano, TOOL PUSHER - 06/18/2022 12:59 AM CDT Mechanical Ventilation [...] 07 - 06/17/2265806/17/22699 - 06/18/22 0659 Shift 1189-3794 1438-1429 24 Hour Total 6658-6691 1752-1715 24 Hour Total INTAKE I.V.(mL/kg) 856.1(6.8) 544.4(4.3) [...] Fellow PGY-4 Consult 1 Service Contact (phone): [phone] After hours and weekends: please page [phone] Cosigned by Miraim Driver MD at 06/17/2022 7:02 PM CDT Associated attestation - Miriam Driver MD - 06/17/2022 7:02 PM CDT I have seen and examined the patient on 06/17/2022. I agree with the findings and plan of care as documented in the nephrology Fellow's note. Miriam Driver MD [facility] Division of Nephrology * Consults, Subsequent - [...] Pulmonary will continue to follow. Please call educational fundraising director pulmonary consult fellow with additional questions or [...] Jr., 51 y.o. male (: 1970) Room: [place] [address] [address] ( ) LOS: 13 Adelia Garvin Jr. is a 51 y.o. male with PMHx CHF (EF 50% in 2017), atrial fibrillation not on OAC, HTN/HLD, CAD s/p PCI, ESRD on PD, hyperparathyroidism presenting with weakness, N/V, diarrhea and chest pain. He is scheduled for [facility] on 06/06. 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, with fpc use of insulin, complicated by ESRD on PD, CAD s/p PCI, CHF - HbA1c 7.4% - Uses Omnipod and Dexcom G6 at home, not currently on this- doesn't have the supplies -On significantly higher basal rates on pump at night due to peritoneal dialysis -home settings: Basal rate 0330 >>1.7 0800 >> 0.8 2000 >> 5.8 ICR1:6.5 ISF1:25 EQZ661 TIA 4 High insulin requirements in setting [...] ## Discharge Planning - Follow-up with home skiver counter -- Delmar Longo MD PhD Endocrinology, Metabolism, & Lipid Research Contact Info: New Consults: [phone]) General Endocrine (Non-Diabetes): [phone] (Check 'Treatment Team' assignment for Diabetes 1 vs 2 vs 3) Diabetes 1: Diabetes Fellow: [phone] Diabetes 2: Dora Delarosa, OPTICAL INSTRUMENT INSPECTOR: [phone] Diabetes 3: See Treatment Team Provider (or call Dora Delarosa, above) Diabetes After-Hours & Weekends: Diabetes Fellow * Plan of Care - Jersey Castano, TOOL PUSHER - 06/17/2022 12:49 AM CDT Mechanical Ventilation [...] 0659 06/16/22 07 - 06/17/22 0659 Shift 3415-2154 0288-9912 24 Hour Total 8260-2480 9846-7958 24 Hour Total INTAKE I.V.(mL/kg) 624.4(5.1) 669(5.4) 1293.4(10.3) 729.7(5.8) 729.7(5.8) Other 1000 83762 41842 NG/GT 275 275 100 100 Shift Total(mL/kg) 1899.4(15.4) 42688(102.8) 38301.4(118) 829.7(6.6) 829.7(6.6) OUTPUT Urine(mL/kg/hr) 0(0) 0(0) 0(0) 0 0 Other 68408 71189 Shift Total(mL/kg) 0(0) 79092(96.7) 27787(96.7) 0(0) 0(0) NET 1899.4 768 2667.4 829.7 [...] Fellow PGY-4 Consult 1 Service Contact (phone): [phone] After hours and weekends: please page [phone] Cosigned by Miriam Driver MD at 06/16/2022 [...] now due to hyperglycemia. Miriam Driver MD [facility] Division of Nephrology * Pre-Procedure Note - [...] ramelteon I/O last 2 completed shifts: In: 66603.4 [I.V.:1293.4; Other:85287; NG/GT:275] Out: 31066 [Other:45864] Objective Vitals: Vitals: 06/16/221199 BP: Pulse: 81 [...] Pulmonary will continue to follow. Please call educational fundraising director pulmonary consult fellow with additional questions or [...] y.o. male (: 1970) Room: [place] [address] ( ) LOS: 12 Adelia Garvin Jr. is a 51 y.o. male with PMHx CHF (EF 50% in 2017), atrial fibrillation not on OAC, HTN/HLD, CAD s/p PCI, ESRD on PD, hyperparathyroidism presenting with weakness, N/V, diarrhea and chest pain. He is scheduled for [facility] on 06/06. 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, complicated by ESRD on PD, CAD s/p PCI, CHF - HbA1c 7.4% - Uses Omnipod and Dexcom G6 at home, not currently on this- doesn't have the supplies -On significantly higher basal rates on pump at night due to peritoneal dialysis -home settings: Basal rate 0330 >>1.7 0800 >> 0.8 2000 >> 5.8 ICR1:6.5 ISF1:25 [id number] TIA 4 Currently on TF Glucerna 1.5 ( CHO 133) Recommendations: - please increase Lantus to 40 units qAM - Humalog 10 units Q4hrs - NPH 15 units at the beginning of PD session - Resistant correctional Humalog q4 hrs - POC glucoses q4hrs Discharge recommendations: - TBD ## Discharge Planning - Follow-up with home skiver counter -- Kellee Magallanes MD Endocrinology, Metabolism, & Lipid Research Contact Info: New Consults: [phone]) General Endocrine (Non-Diabetes): [phone] (Check 'Treatment Team' assignment for Diabetes 1 vs 2 vs 3) Diabetes 1: Diabetes Fellow: [phone] Diabetes 2: Dora Delarosa, OPTICAL INSTRUMENT INSPECTOR: [phone] Diabetes 3: See Treatment Team Provider (or [...] visit to the patient. Bryce Langley MD, [facility] Jumpbastinghome care specialist Division of Endocrinology, Metabolism & Lipid Research [...] * Plan of Care - Juanito Hernandez, TOOL PUSHER - 06/15/2022 10:13 PM CDT Patient was [...] Date 06/14/22699 - 06/15/2265806/15/22699 - 06/16/2259 Shift 0906-0550 4968-2024 24 Hour Total 1700-6992 8959-3477 24 Hour Total INTAKE I.V.(mL/kg) 520.5(4) 498.9(4.1) 1019.4(8.3) 624.4(5.1) 624.4(5.1) NG/GT 151 150 5813 275 275 Shift Total(mL/kg) 905.5(7) 1278.9(10.4) 2184.4(17.8) [...] Fellow PGY-4 Consult 1 Service Contact (phone): [phone] After hours and weekends: please page [phone] Cosigned by Miriam Driver MD at 06/15/2022 7:33 PM CDT Associated attestation - Miriam Driver MD - 06/15/2022 7:33 PM CDT I have seen and examined the patient on 06/15/2022. I agree with the findings and plan of care as documented in the nephrology Fellow's note. Miriam Driver MD [facility] Division of Nephrology * Plan of Care [...] 06/14/2022 2:12 PM CDT Rounds with MD, family independence case manager, social work, & charge nurse [...] Patient and family are agreeable with plan. manager stylist will continue to follow and assist with discharge planning as needed * Consults, Rodney - Miriam Driver MD - 06/14/2022 1:58 PM CDT Nephrology SLED/CRRT Procedure Note Date of Service: 06/14/2022 I saw and evaluated the patient during CRRT. Indication for TOOL PUSHER: ESRD Dialysis access: LIJ Trialysis catheter My [...] stable On systemic heparin Miriam Driver MD [facility] Division of Nephrology Consult 1: After 4 [...] Pulmonary will continue to follow. Please call educational fundraising director pulmonary consult fellow with additional questions or [...] evaluated the patient during CRRT. Indication for TOOL PUSHER: ESRD Dialysis access: LIJ Trialysis catheter My [...] Jr., 51 y.o. male (: 1970) Room: [place] [address] [address] ( ) LOS: 9 Adelia Garvin Jr. [...] Plan 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, complicated by ESRD on PD, CAD s/p PCI, CHF - HbA1c 7.4% - Uses Omnipod and Dexcom G6 at home, not currently on this- doesn't have the supplies -On significantly higher basal rates on pump at night due to peritoneal dialysis -home settings: Basal rate 0330 >>1.7 0800 >> 0.8 2000 >> 5.8 ICR1:6.5 ISF1:25 [id number] TIA 4 Currently on TF Glucerna 1.5 ( CHO 133) Recommendations: - please decrease Lantus to 30 units qAM - Humalog 5 units Q4hrs - Resistant correctional Humalog q4 hrs - POC glucoses q4hrs Discharge recommendations: Start Omnipod insulin pump at pre-hospital settings #Acute hypoxic respiratory failure #ESRD on PD at home - on CRRT ## Discharge Planning - Follow-up with home skiver counter We will sign off, we are happy to come back on board once he is back on his PD -- Kellee Magallanes MD Endocrinology, Metabolism, & Lipid Research Contact Info: New Consults: [phone]) General Endocrine (Non-Diabetes): [phone] (Check 'Treatment Team' assignment for Diabetes 1 vs 2 vs 3) Diabetes 1: Diabetes Fellow: [phone] Diabetes 2: Dora Delarosa, OPTICAL INSTRUMENT INSPECTOR: [phone] Diabetes 3: See Treatment Team Provider (or [...] discussion with the patient. Bryce Langley MD, [facility] Jumpbastinghome care specialist Division of Endocrinology, Metabolism & Lipid Research [...] evaluated the patient during CRRT. Indication for TOOL PUSHER: ESRD Dialysis access: LIJ Trialysis catheter My [...] scale Q4h Ayah Hoang MD Endocrinology Fellow [phone] Cosigned by Ann Boston MD at 06/12/2022 [...] injection 0-10 Units, 0-10 Units, subcutaneous, Q4H [facility], Meme Castro MD, 4 Units at [...] tube projects approximately 5.5 cm above the obni. Nasogastric tube extends below the diaphragm with the tip excluded from the [id number]. Left internal jugular catheter projects at superior [...] scale Q4h Ayah Hoang MD Endocrinology Fellow [phone] Cosigned by Ann Boston MD at 06/12/2022 [...] evaluated the patient during CRRT. Indication for TOOL PUSHER: ESRD Dialysis access: LIJ Trialysis catheter My [...] this interval not displayed. Vonnie Cody MD home care specialist Division of Nephology Consult 1: After 4 [...] evaluated the patient during CRRT. Indication for TOOL PUSHER: ESRD Dialysis access: LIJ Trialysis catheter My [...] this interval not displayed. Vonnie Cody MD home care specialist Division of Nephology Consult 1: After 4 PM on , after 12 PM on Monday, and all day Monday, please contact on-call renal fellow at with questions. * Consults, Subsequent - Kellee Magallanes MD - 06/10/2022 1:00 PM CDT Endocrinology & Diabetes Progress Note Patient: Adelia Garvin Jr., 51 y.o. male (: 1970) Room: [place] [address] [address] ( ) LOS: 6 Adelia aGrvin Jr. is a 51 y.o. male with PMHx CHF (EF 50% in 2017), atrial fibrillation not on OAC, HTN/HLD, CAD s/p PCI, ESRD on PD, hyperparathyroidism presenting with weakness, N/V, diarrhea and chest pain. He is scheduled for [facility] on 06/06. 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, with fpc use of insulin, complicated by ESRD on PD, CAD s/p PCI, CHF - HbA1c 7.4% - Uses Omnipod and Dexcom G6 at home, not currently on this- doesn't have the supplies -On significantly higher basal rates on pump at night due to peritoneal dialysis -home settings: Basal rate 0330 >>1.7 0800 >> 0.8 2000 >> 5.8 ICR1:6.5 ISF1:25 [id number] TIA 4 Recommendations: - Lantus 33 units [...] ## Discharge Planning - Follow-up with home skiver counter -- Kellee Magallanes MD Endocrinology, Metabolism, & Lipid Research Contact Info: New Consults: [phone]) General Endocrine (Non-Diabetes): [phone] (Check 'Treatment Team' assignment for Diabetes 1 vs 2 vs 3) Diabetes 1: Diabetes Fellow: [phone] Diabetes 2: Dora Delarosa, OPTICAL INSTRUMENT INSPECTOR: [phone] Diabetes 3: See Treatment Team Provider (or [...] discussion with the patient. Bryce Langley MD, [facility] Jumpbastinghome care specialist Division of Endocrinology, Metabolism & Lipid Research [...] 33 Units 33 Units subcutaneous [facility] Meme Castro MD 33 Units at 06/10/22 0847 insulin lispro (HumaLOG, ADMELOG) 100 unit/mL injection 0-10 Units 0-10 Units subcutaneous Q4H [facility] Meme Castro MD 2 Units at [...] evaluated the patient during CRRT. Indication for TOOL PUSHER: ESRD Dialysis access: LIJ Trialysis catheter My [...] this interval not displayed. Vonnie Cody MD home care specialist Division of Nephology Consult 1: After 4 [...] Jr., 51 y.o. male (: 1970) Room: [place] [address] [address] ( ) LOS: 5 Adelia Garvin Jr. is a 51 y.o. male with PMHx CHF (EF 50% in 2017), atrial fibrillation not on OAC, HTN/HLD, CAD s/p PCI, ESRD on PD, hyperparathyroidism presenting with weakness, N/V, diarrhea and chest pain. He is scheduled for [facility] on 06/06. 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, complicated by ESRD on PD, CAD s/p PCI, CHF - HbA1c 7.4% - Uses Omnipod and Dexcom G6 at home, not currently on this- doesn't have the supplies -On significantly higher basal rates on pump at night due to peritoneal dialysis -home settings: Basal rate 0330 >>1.7 0800 >> 0.8 2000 >> 5.8 ICR1:6.5 ISF1:25 QLM346 TIA 4 Recommendations: - Lantus 33 units [...] ## Discharge Planning - Follow-up with home skiver counter -- Kellee Magallanes MD Endocrinology, Metabolism, & Lipid Research Contact Info: New Consults: [phone]) General Endocrine (Non-Diabetes): [phone] (Check 'Treatment Team' assignment for Diabetes 1 vs 2 vs 3) Diabetes 1: Diabetes Fellow: [phone] Diabetes 2: Dora Delarosa, OPTICAL INSTRUMENT INSPECTOR: [phone] Diabetes 3: See Treatment Team Provider (or [...] discussion with the patient. Bryce Langley MD, [facility] Jumpbastinghome care specialist Division of Endocrinology, Metabolism & Lipid Research [...] Jr., 51 y.o. male (: 1970) Room: [place] [id number] ( ) LOS: 4 Adelia Garvin Jr. [...] Plan 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, with fpc use of insulin, complicated by ESRD on PD, CAD s/p PCI, CHF - HbA1c 7.4% - Uses Omnipod and Dexcom G6 at home, not currently on this- doesn't have the supplies -On significantly higher basal rates on pump at night due to peritoneal dialysis -home settings: Basal rate 0330 >>1.7 0800 >> 0.8 2000 >> 5.8 ICR1:6.5 ISF1:25 HAH408 TIA 4 Recommendations: - Lantus 33 units [...] ## Discharge Planning - Follow-up with home skiver counter -- Kellee Magallanes MD Endocrinology, Metabolism, & Lipid Research Contact Info: New Consults: [phone]) General Endocrine (Non-Diabetes): [phone] (Check 'Treatment Team' assignment for Diabetes 1 vs 2 vs 3) Diabetes 1: Diabetes Fellow: [phone] Diabetes 2: Dora Delarosa, OPTICAL INSTRUMENT INSPECTOR: [phone] Diabetes 3: See Treatment Team Provider (or [...] evaluated the patient during CRRT. Indication for TOOL PUSHER: ESRD Dialysis access: LIJ Trialysis catheter My [...] -- 4.7* 7.2* 6.6* Vonnie Cody MD home care specialist Division of Nephology Consult 1: After 4 PM on , after 12 PM on Monday, and all day Monday, please contact on-call renal fellow at with questions. * Plan of Care - Joyce Begum, TOOL PUSHER - 06/08/2022 3:33 AM CDT Patient on mechanical ventilation. Wean as tolerated. * Plan of Care - Low Cardoso MD - 06/07/2022 4:37 PM CDT Nephrology update note Patient not seen, off the floor for cardiac catheterization Patient reportedly had cardiopulmonary decompensation requiring intubation. Additionally had Impella placed and undergoing ECMO evaluation Trialysis catheter placed while in cardiac high density press laborer Given need for aggressive volume removal, will start CVVHDF Low Cardoso MD Nephrology Fellow Consult 2 Service Contact via [employer] Message After 4pm on , after 12pm [...] given. Additionally hypoxic on blood gas. Assisted [facility] team in getting levo and epi gtt started, titrated up to 0.1mcg/kg/min each. Impella placed by interventional cardiology team. CTS at bedside for ECMO evaluation. Cj Yang, CA-3, Anesthesiology [facility] Cosigned by Cody Mendosa MD at 06/08/2022 2:17 PM CDT Associated attestation - Cody Mendosa MD - 06/08/2022 2:17 PM CDT Anesthesia STAT was called while patient in high density press laborer for complex PCI. Upon my arrival, he [...] Jr., 51 y.o. male (: 1970) Room: [facility] CARDIAC CATH ROOM/NO* ( ) LOS: 3 [...] Plan 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, complicated by ESRD on PD, CAD s/p PCI, CHF - HbA1c 7.4% - Uses Omnipod and Dexcom G6 at home, not currently on this- doesn't have the supplies - - On significantly higher basal rates on pump at night due to peritoneal dialysis -home settings: Basal rate 0330 >>1.7 0800 >> 0.8 2000 >> 5.8 ICR1:6.5 ISF1:25 GUQ231 TIA 4 Recommendations: - Lantus 33 units [...] ## Discharge Planning - Follow-up with home skiver counter -- Kellee Magallanes MD Endocrinology, Metabolism, & Lipid Research Contact Info: New Consults: [phone]) General Endocrine (Non-Diabetes): [phone] (Check 'Treatment Team' assignment for Diabetes 1 vs 2 vs 3) Diabetes 1: Diabetes Fellow: [phone] Diabetes 2: Dora Delarosa OPTICAL INSTRUMENT INSPECTOR: [phone] Diabetes 3: See Treatment Team Provider (or [...] tablet 500 mg 500 mg oral BID Deewy Parra MD 500 mg at 06/07/22 0801 [...] monitor VS, improve oxygenation status, go to high density press laborer for LHC today,possibly do another scan for [...] Thank you, SIL Avilez, RN, CCDS Email: [email or web address] * Consults, Subsequent - Low [...] Date 06/05/22699 - 06/06/2265806/06/22699 - 06/07/22658 Shift 0384-0135 0910-4030 24 Hour Total 3899-8174 3985-5193 24 Hour Total INTAKE P.O. 60 60 450 450 I.V.(mL/kg) 443.1(3.1) 443.1(3.1) 147.7(1) 147.7(1) Other 75780 17173 99424 IV Piggyback 105 105 Shift Total(mL/kg) 30762(84.2) 69386.1(86.1) 73692.1(170.3) 597.7(4.2) 597.7(4.2) OUTPUT Urine(mL/kg/hr) 0(0) 6(0) 6(0) 0 0 Other 36194 42086 35773 Stool 0 0 Shift Total(mL/kg) 85401(87.7) 15358(98.3) 81367(186) 0(0) 0(0) NET -498 -1729.9 -2227.9 597.7 [...] Nephrology Fellow Consult 2 Service Contact via [employer] Message After 4pm on , after 12pm [...] y.o. male (: 1970) Room: [place] [address] [address] ( ) LOS: 2 Adelia Garvin Jr. is a 51 y.o. male with PMHx CHF (EF 50% in 2017), atrial fibrillation not on OAC, HTN/HLD, CAD s/p PCI, ESRD on PD, hyperparathyroidism presenting with weakness, N/V, diarrhea and chest pain. He is scheduled for [facility] on 06/06. Diabetes service consulted for T1DM [...] labs, imaging, and diagnostics independently reviewed in [facility] and commented on below. Lab Results Component Value Date TSH 0.80 03/21/2017 Lab Results Component Value Date CHOL 149 06/04/2022 TRIG 165 (H) 06/04/2022 HDL 34 (L) 06/04/2022 LDLCALC 82 06/04/2022 Lab Results Component Value Date 25HYDROVITD 22.7 (L) 03/22/2017 Lab Results Component Value Date HGBA1C 7.8 (H) 06/04/2022 Assessment & Plan 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, with fpc use of insulin, complicated by ESRD on PD, CAD s/p PCI, CHF - HbA1c 7.4% - Uses Omnipod and Dexcom G6 at home, not currently on this- doesn't have the supplies - - On significantly higher basal rates on pump at night due to peritoneal dialysis -home settings: Basal rate 0330 >>1.7 0800 >> 0.8 2000 >> 5.8 ICR1:6.5 ISF1:25 XFT071 TIA 4 Recommendations: - Lantus 33 units [...] ## Discharge Planning - Follow-up with home skiver counter -- Kellee Magallanes MD Endocrinology, Metabolism, & Lipid Research Contact Info: New Consults: [phone]) General Endocrine (Non-Diabetes): [phone] (Check 'Treatment Team' assignment for Diabetes 1 vs 2 vs 3) Diabetes 1: Diabetes Fellow: [phone] Diabetes 2: Dora Delarosa OPTICAL INSTRUMENT INSPECTOR: [phone] Diabetes 3: See Treatment Team Provider (or [...] Shift: Monitor VS and keep SBP 140-160, public works laborer for [facility] Summary: * Plan of Care - Karuna [...] we should call his brother Ronny Garvin [phone] or [phone] (pt not sure which is the correct [...] utility assistance and LIHEAP assistance programs for [facility]. Pt denied other needs stating he has good support from his brother and son. SÁNCHEZ Virk, [employer]CH POLISHER * Plan of Care - Manisha Wong [...] POCT GLUCOSE DEVICE Routine 06/29/2022 11:51 AM MANAGER GALLERY POCT GLUCOSE DEVICE Routine 06/29/2022 7 :43 AM MANAGER GALLERY POCT GLUCOSE DEVICE Routine 06/28/2022 8 :08 PM MANAGER GALLERY COVID-19 CORONAVIRUS RNA Routine 06/28/2022 3:46 PM MANAGER GALLERY POCT GLUCOSE DEVICE Routine 06/28/2022 3 :33 PM MANAGER GALLERY POCT GLUCOSE DEVICE Routine 06/28/2022 11:42 AM MANAGER GALLERY POCT GLUCOSE DEVICE Routine 06/28/2022 9 :53 AM MANAGER GALLERY POCT GLUCOSE DEVICE Routine 06/28/2022 8 :37 AM MANAGER GALLERY POCT GLUCOSE DEVICE Routine 06/28/2022 8 :20 AM MANAGER GALLERY POCT GLUCOSE DEVICE Routine 06/28/2022 8 :02 AM MANAGER GALLERY POCT GLUCOSE DEVICE Routine 06/28/2022 7 :41 AM MANAGER GALLERY POCT GLUCOSE DEVICE Routine 06/27/2022 7 :51 PM MANAGER GALLERY POCT GLUCOSE DEVICE Routine 06/27/2022 4 :54 PM MANAGER GALLERY POCT GLUCOSE DEVICE Routine 06/27/2022 11:37 AM MANAGER GALLERY POCT GLUCOSE DEVICE Routine 06/27/2022 7 :54 AM MANAGER GALLERY EGFR Routine 06/27/2022 3:51 AM MANAGER GALLERY CBC WITHOUT DIFFERENTIAL Routine 06/27/2022 3:51 AM MANAGER GALLERY BASIC METABOLIC PANEL Routine 06/27/2022 3:51 AM MANAGER GALLERY POCT GLUCOSE DEVICE Routine 06/27/2022 1 :54 AM MANAGER GALLERY POCT GLUCOSE DEVICE Routine 06/26/2022 9 :14 PM MANAGER GALLERY POCT GLUCOSE DEVICE Routine 06/26/2022 5 :53 PM MANAGER GALLERY POCT GLUCOSE DEVICE Routine 06/26/2022 1 :16 PM MANAGER GALLERY POCT GLUCOSE DEVICE Routine 06/26/2022 11:09 AM MANAGER GALLERY POCT GLUCOSE DEVICE Routine 06/26/2022 9 :07 AM MANAGER GALLERY POCT GLUCOSE DEVICE Routine 06/26/2022 7 :25 AM MANAGER GALLERY EGFR Routine 06/26/2022 3:23 AM MANAGER GALLERY CBC WITHOUT DIFFERENTIAL Routine 06/26/2022 3:23 AM MANAGER GALLERY BASIC METABOLIC PANEL Routine 06/26/2022 3:23 AM MANAGER GALLERY POCT GLUCOSE DEVICE Routine 06/26/2022 1 :32 [...] VIDEO IP Routine 06/21/2022 2:06 PM CDT FIRE CREW SPECIALIST EVALUATE AND TREAT VIDEOFLUOROSCOPIC SWALLOW STUDY [...] DEVICE Routine 06/17/2022 7 :40 PM CDT MI INSJ NON-TUNNELED CENTRAL VENOUS CATH AGE 3 [...] METABOLIC PANEL STAT 06/07/2022 10:58 PM CDT MI ARTL CATHJ/CANNULJ MNTR/TRANSFUSION SPX PRQ Routine 06/07/2022 [...] EGFR STAT 06/05/2022 3:22 PM CDT POCT [id number],WB - ISTAT Routine 06/05/2022 3:22 PM CDT [...] * (ABNORMAL) POCT glucose (06/29/2022 11:51 AM MANAGER GALLERY) Glucose, POC 302(H) 70 - 199 mg/dL [facility] Blood 06/29/2022 11:5 1 AM MANAGER GALLERY 06/29/2022 11:51 AM MANAGER GALLERY Frank Bowers MD LAB POCT ORDERABLES - DEVICE F inal Result [facility] [place] [address] * (ABNORMAL) POCT glucose (06/29/2022 7:43 AM MANAGER GALLERY) Glucose, POC 262(H) 70 - 199 mg/dL [facility] Glucose comment 1 Glu2: RN/ Notified [facility] Blood 06/29/2022 7:43 AM MANAGER GALLERY 06/29/2022 7:43 AM MANAGER GALLERY us Frank Bowers MD LAB POCT ORDERABLES - DEVICE F inal Result Performing Organization Address City/[facility]/ZIP Co de Phone Number [facility] [place] [address] * (ABNORMAL) POCT glucose (06/28/2022 8:08 PM MANAGER GALLERY) Pathologist [facility] Glucose, POC 260(H) 70 - 199 mg/dL [facility] Blood 06/28/2022 8:08 PM MANAGER GALLERY 06/28/2022 8:08 PM MANAGER GALLERY Frank Bowers MD LAB POCT ORDERABLES - DEVICE F inal Result Performing Organization Address [facility] de Phone Number [facility] [place] [address] * COVID-19 Coronavirus RNA Nasopharyngeal (06/28/2022 3:46 PM MANAGER GALLERY) [facility] COVID-19 RNA Negative Negative [facility] Nasopharyngeal 06/28/2022 3: 46 PM MANAGER GALLERY 06/28/2022 4:22 PM MANAGER GALLERY Narrative [facility] - 06/28/2022 5:03 PM MANAGER GALLERY Is the patient experiencing any symptoms consistent with COVID (eg. Fever, cough, shortness of breath)?->No What is the reason for testing?->Placement in post-acute care setting (Rapid) ??Interpretive data: Synonyms for this test include: PCR and NAAT . ??This test is performed using the [employer] Xpert Xpress plus assay. This is a [...] . ??This test is performed using the [employer] Xpert Xpress plus assay. This is a [...] ORD ERABLES Final Result Performing Organization Address City/[facility] Co de Phone Number [facility] [place] [address] * (ABNORMAL) POCT glucose (06/28/2022 3:33 PM MANAGER GALLERY) Glucose, POC 299(H) 70 - 199 mg/dL [facility] Blood 06/28/2022 3:33 PM MANAGER GALLERY 06/28/2022 3:33 PM MANAGER GALLERY Frank Bowers MD LAB POCT ORDERABLES - DEVICE F inal Result Performing Organization Address [facility] Co de Phone Number [facility] [place] [place] [address] * (ABNORMAL) POCT glucose (06/28/2022 11:42 AM MANAGER GALLERY) Glucose, POC 281(H) 70 - 199 mg/dL [facility] Glucose comment 1 Glu2: RN/MD Notified [facility] Blood 06/28/2022 11:4 2 AM MANAGER GALLERY 06/28/2022 11:42 AM MANAGER GALLERY Frank Bowers MD LAB POCT ORDERABLES - DEVICE F inal Result Performing Organization Address City/[facility] Co de Phone Number [facility] [place] [address] * POCT glucose (06/28/2022 9:53 AM MANAGER GALLERY) Glucose, POC 181 70 - 199 mg/dL [facility] Blood 06/28/2022 9:53 AM MANAGER GALLERY 06/28/2022 9:53 AM MANAGER GALLERY Frank Bowers MD LAB POCT ORDERABLES - DEVICE F inal Result Performing Organization Address City/[facility] [place] [address] * POCT glucose (06/28/2022 8:37 AM MANAGER GALLERY) Glucose, POC 121 70 - 199 mg/dL [facility] Blood 06/28/2022 8:37 AM MANAGER GALLERY 06/28/2022 8:37 AM MANAGER GALLERY Frank Bowers MD LAB POCT ORDERABLES - DEVICE F inal Result Performing Organization Address City/[facility] [place] [address] * POCT glucose (06/28/2022 8:20 AM MANAGER GALLERY) Glucose, POC 95 70 - 199 mg/dL [facility] Blood 06/28/2022 8:20 AM MANAGER GALLERY 06/28/2022 8:20 AM MANAGER GALLERY Frank Bowers MD LAB POCT ORDERABLES - DEVICE F inal Result Performing Organization Address City/[facility] [place] [address] * POCT glucose (06/28/2022 8:02 AM MANAGER GALLERY) Glucose, POC 75 70 - 199 mg/dL [facility] Blood 06/28/2022 8:02 AM MANAGER GALLERY 06/28/2022 8:02 AM MANAGER GALLERY Frank Bowers MD LAB POCT ORDERABLES - DEVICE F inal Result Performing Organization Address [facility] de Phone Number [facility] [place] [address] * (ABNORMAL) POCT glucose (06/28/2022 7:41 AM MANAGER GALLERY) Glucose, POC 68(L) 70 - 199 mg/dL [facility] Glucose comment 1 Glu2: RN/MD Notified [facility] Blood 06/28/2022 7:41 AM MANAGER GALLERY 06/28/2022 7:41 AM MANAGER GALLERY Frank Bowers MD LAB POCT ORDERABLES - DEVICE F inal Result Performing Organization Address [facility] de Phone Number [facility] [place] [address] * POCT glucose (06/27/2022 7:51 PM MANAGER GALLERY) Glucose, POC 199 70 - 199 mg/dL [facility] Blood 06/27/2022 7:51 PM MANAGER GALLERY 06/27/2022 7:51 PM MANAGER GALLERY Carey East MD LAB POCT ORDERABLES - DEVICE Final Result Performing Organization Address [facility] de Phone Number [facility] [place] [address] * POCT glucose (06/27/2022 4:54 PM MANAGER GALLERY) Glucose, POC 143 70 - 199 mg/dL [facility] Blood 06/27/2022 4:54 PM MANAGER GALLERY 06/27/2022 4:54 PM MANAGER GALLERY Carey East MD LAB POCT ORDERABLES - DEVICE Final Result Performing Organization Address [facility] [place] [address] * (ABNORMAL) POCT glucose (06/27/2022 11:37 AM MANAGER GALLERY) Glucose, POC 228(H) 70 - 199 mg/dL [facility] Glucose comment 1 Glu2: RN/MD Notified [facility] Blood 06/27/2022 11:3 7 AM MANAGER GALLERY 06/27/2022 11:37 AM MANAGER GALLERY Carey East MD LAB POCT ORDERABLES - DEVICE Final Result Performing Organization Address [facility] [place] [address] * (ABNORMAL) POCT glucose (06/27/2022 7:54 AM MANAGER GALLERY) Glucose, POC 350(H) 70 - 199 mg/dL [facility] Blood 06/27/2022 7:54 AM MANAGER GALLERY 06/27/2022 7:54 AM MANAGER GALLERY Carey East MD LAB POCT ORDERABLES - DEVICE Final Result Performing Organization Address [facility] [place] [address] * (ABNORMAL) eGFR (06/27/2022 3:51 AM MANAGER GALLERY) eGFR 6(L) 90 - 130 mL/min/1. 73 m2 [facility] Comment: Interpretive Data Reference Interval Normal [...] last reviewed 2021. Blood 06/27/2022 3:51 AM MANAGER GALLERY 06/27/2022 4:28 AM MANAGER GALLERY us Carey East MD LAB BLOOD ORDERABLES Final Result [facility] [place] [address] * (ABNORMAL) CBC without differential (06/27/2022 3:51 AM MANAGER GALLERY) WBC 3.8 3.8 - 9.9 K/cumm [facility] Hgb 7.5(L) 13.0 - 17.5 g/dL [facility] Hct 22.8(L) 38.9 - 50.3 % [facility] Plt 294 150 - 400 K/cumm [facility] MPV 10.0 9.1 - 12.3 fL [facility] RBC 2.49(L) 4.30 - 5.80 M/cumm [facility] MCV 91.6 81.3 - 96.4 fL [facility] MCH 30.1 27.1 - 33.3 pg [facility] MCHC 32.9 32.3 - 35.7 g/dL [facility] RDW CV 17.5(H) 11.1 - 14.9 % [facility] RDW SD 57.9(H) 35.7 - 48.1 fL [facility] NRBC abs 0.00 0.00 - 0.01 K/cumm [facility] Blood 06/27/2022 3:51 AM MANAGER GALLERY 06/27/2022 4:28 AM MANAGER GALLERY us Carey East MD LAB BLOOD ORDERABLES Final Result [facility] [place] [address] * (ABNORMAL) Basic metabolic panel (06/27/2022 3:51 AM MANAGER GALLERY) Sodium 132(L) 135 - 145 mmol/L [facility] Potassium, pl 3.1(L) 3.3 - 4.9 mmol/L [facility] Chloride 89(L) 97 - 110 mmol/L [facility] CO2 26 22 - 32 mmol/L [facility] Anion gap 17(H) 2 - 15 mmol/L [facility] BUN 46(H) 8 - 25 mg/dL [facility] Creatinine 10.21(H) 0.80 - 1.30 mg/dL [facility] Glucose 274(H) 70 - 199 mg/dL [facility] Comment: Interpretive Data Fasting glucose >/= [...] mg/dL [facility] Blood 06/27/2022 3:51 AM MANAGER GALLERY 06/27/2022 4:28 AM MANAGER GALLERY Carey East MD LAB BLOOD ORDERABLES Final Result Performing Organization Address [facility] Co de Phone Number [facility] [place] [place] [address] * (ABNORMAL) POCT glucose (06/27/2022 1:54 AM MANAGER GALLERY) Glucose, POC 276(H) 70 - 199 mg/dL [facility] Blood 06/27/2022 1:54 AM MANAGER GALLERY 06/27/2022 1:54 AM MANAGER GALLERY Carey East MD LAB POCT ORDERABLES - DEVICE Final Result Performing Organization Address [facility] Co de Phone Number [facility] [place] [address] * POCT glucose (06/26/2022 9:14 PM MANAGER GALLERY) Glucose, POC 184 70 - 199 mg/dL [facility] Blood 06/26/2022 9:14 PM MANAGER GALLERY 06/26/2022 9:14 PM MANAGER GALLERY Carey East MD LAB POCT ORDERABLES - DEVICE Final Result Performing Organization Address [facility] de Phone Number [facility] [place] [address] * POCT glucose (06/26/2022 5:53 PM MANAGER GALLERY) Glucose, POC 98 70 - 199 mg/dL [facility] Blood 06/26/2022 5:53 PM MANAGER GALLERY 06/26/2022 5:53 PM MANAGER GALLERY us Carey East MD LAB POCT ORDERABLES - DEVICE Final Result Performing Organization Address [facility] Co de Phone Number [facility] [place] [address] * (ABNORMAL) POCT glucose (06/26/2022 1:16 PM MANAGER GALLERY) Glucose, POC 202(H) 70 - 199 mg/dL [facility] Blood 06/26/2022 1:16 PM MANAGER GALLERY 06/26/2022 1:16 PM MANAGER GALLERY Carey East MD LAB POCT ORDERABLES - DEVICE Final Result Performing Organization Address [facility] [place] [address] * (ABNORMAL) POCT glucose (06/26/2022 11:09 AM MANAGER GALLERY) Glucose, POC 320(H) 70 - 199 mg/dL [facility] Glucose comment 1 Glu2: RN/MD Notified [facility] Blood 06/26/2022 11:0 9 AM MANAGER GALLERY 06/26/2022 11:09 AM MANAGER GALLERY us Carey East MD LAB POCT ORDERABLES - DEVICE Final Result Performing Organization Address [facility] [place] [address] * (ABNORMAL) POCT glucose (06/26/2022 9:07 AM MANAGER GALLERY) Glucose, POC 400(H) 70 - 199 mg/dL [facility] Blood 06/26/2022 9:07 AM MANAGER GALLERY 06/26/2022 9:07 AM MANAGER GALLERY Carey East MD LAB POCT ORDERABLES - DEVICE Final Result Performing Organization Address [facility] Co de Phone Number [facility] [place] [address] * (ABNORMAL) POCT glucose (06/26/2022 7:25 AM MANAGER GALLERY) Pathologist [facility] Glucose, POC 393(H) 70 - 199 mg/dL [facility] Glucose comment 1 Glu2: RN/MD Notified [facility] Blood 06/26/2022 7:25 AM MANAGER GALLERY 06/26/2022 7:25 AM MANAGER GALLERY Carey East MD LAB POCT ORDERABLES - DEVICE Final Result Performing Organization Address [facility] Co de Phone Number [facility] [place] [address] * (ABNORMAL) eGFR (06/26/2022 3:23 AM MANAGER GALLERY) [facility] eGFR 5(L) 90 - 130 mL/min/1. 73 m2 [facility] Comment: Interpretive Data Reference Interval Normal [...] last reviewed 2021. Blood 06/26/2022 3:23 AM MANAGER GALLERY 06/26/2022 5:00 AM MANAGER GALLERY Carey East MD LAB BLOOD ORDERABLES Final Result [facility] [place] [address] * (ABNORMAL) CBC without differential (06/26/2022 3:23 AM MANAGER GALLERY) WBC 4.1 3.8 - 9.9 K/cumm [facility] Hgb 7.6(L) 13.0 - 17.5 g/dL [facility] Hct 23.3(L) 38.9 - 50.3 % [facility] Plt 250 150 - 400 K/cumm [facility] MPV 10.7 9.1 - 12.3 fL [facility] RBC 2.49(L) 4.30 - 5.80 M/cumm [facility] MCV 93.6 81.3 - 96.4 fL [facility] MCH 30.5 27.1 - 33.3 pg [facility] MCHC 32.6 32.3 - 35.7 g/dL [facility] RDW CV 17.8(H) 11.1 - 14.9 % [facility] RDW SD 59.3(H) 35.7 - 48.1 fL [facility] NRBC abs 0.00 0.00 - 0.01 K/cumm [facility] Blood 06/26/2022 3:23 AM MANAGER GALLERY 06/26/2022 5:00 AM MANAGER GALLERY Carey East MD LAB BLOOD ORDERABLES Final Result [facility] [place] [address] * (ABNORMAL) Basic metabolic panel (06/26/2022 3:23 AM MANAGER GALLERY) Pathologist [facility] Sodium 134(L) 135 - 145 mmol/L [facility] Potassium, pl 3.6 3.3 - 4.9 mmol/L [facility] Chloride 91(L) 97 - 110 mmol/L [facility] CO2 26 22 - 32 mmol/L [facility] Anion gap 17(H) 2 - 15 mmol/L [facility] BUN 47(H) 8 - 25 mg/dL [facility] Creatinine 10.28(H) 0.80 - 1.30 mg/dL [facility] Glucose 335(H) 70 - 199 mg/dL [facility] Comment: Interpretive Data Fasting glucose >/= [...] 2017. Calcium 8.5 8.5 - 10.3 mg/dL [facility] Blood 06/26/2022 3:23 AM MANAGER GALLERY 06/26/2022 5:00 AM MANAGER GALLERY us Carey East MD LAB BLOOD ORDERABLES Final Result [facility] [place] [address] * (ABNORMAL) POCT glucose (06/26/2022 1:32 AM CDT) Glucose, POC 334(H) 70 - 199 mg/dL [facility] Blood 06/26/2022 1:32 AM CDT 06/26/2022 1:32 AM CDT Carey East MD LAB POCT ORDERABLES - DEVICE Final Result Performing Organization Address [facility] Co de Phone Number [facility] [place] [address] * (ABNORMAL) POCT glucose (06/25/2022 9:02 PM CDT) Glucose, POC 257(H) 70 - 199 mg/dL [facility] Blood 06/25/2022 9:02 PM CDT 06/25/2022 9:02 PM CDT Carey East MD LAB POCT ORDERABLES - DEVICE Final Result Performing Organization Address [facility] Co de Phone Number [facility] [place] [address] * (ABNORMAL) POCT glucose (06/25/2022 6:30 PM CDT) Glucose, POC 223(H) 70 - 199 mg/dL [facility] Blood 06/25/2022 6:30 PM CDT 06/25/2022 6:30 PM CDT Caery East MD LAB POCT ORDERABLES - DEVICE Final Result Performing Organization Address [facility] Co de Phone Number [facility] [place] [address] * (ABNORMAL) POCT glucose (06/25/2022 4:21 PM CDT) Glucose, POC 241(H) 70 - 199 mg/dL [facility] Glucose comment 1 Glu2: RN/MD Notified [facility] Blood 06/25/2022 4:21 PM CDT 06/25/2022 4:21 PM CDT Carey East MD LAB POCT ORDERABLES - DEVICE Final Result Performing Organization Address [facility] de Phone Number [facility] [place] [address] * (ABNORMAL) POCT glucose (06/25/2022 11:42 AM CDT) [facility] Glucose, POC 296(H) 70 - 199 mg/dL [facility] Glucose comment 1 Glu2: RN/MD Notified [facility] Blood 06/25/2022 11:4 2 AM CDT 06/25/2022 11:42 AM CDT Carey East MD LAB POCT ORDERABLES - DEVICE Final Result Performing Organization Address [facility] de Phone Number [facility] [place] [address] * (ABNORMAL) POCT glucose (06/25/2022 7:42 AM CDT) [facility] Glucose, POC 363(H) 70 - 199 mg/dL [facility] Glucose comment 1 Glu2: RN/MD Notified [facility] Blood 06/25/2022 7:42 AM CDT 06/25/2022 7:42 AM CDT Carey East MD LAB POCT ORDERABLES - DEVICE Final Result Performing Organization Address [facility] [place] [address] * (ABNORMAL) eGFR (06/25/2022 4:36 AM CDT) [facility] eGFR 6(L) 90 - 130 mL/min/1. 73 m2 [facility] Comment: Interpretive Data Reference Interval Normal [...] Final Result Performing Organization Address [facility] Phone Number [facility] [place] [address] * (ABNORMAL) Phosphorus (06/25/2022 4:36 AM CDT) Phosphorus, pl 7.9(H) 2.3 - 4.5 mg/dL [facility] Comment:Reviewed Blood 06/25/2022 4:36 AM CDT 06/25/2022 5:15 AM CDT Carey East MD LAB BLOOD ORDERABLES Final Result Performing Organization Address [facility] Co de Phone Number [facility] [place] [address] * (ABNORMAL) Basic metabolic panel (06/25/2022 4:36 AM CDT) Sodium 135 135 - 145 mmol/L [facility] Potassium, pl 3.9 3.3 - 4.9 mmol/L [facility] Chloride 93(L) 97 - 110 mmol/L [facility] CO2 28 22 - 32 mmol/L [facility] Anion gap 14 2 - 15 mmol/L [facility] BUN 44(H) 8 - 25 mg/dL [facility] Creatinine 9.57(H) 0.80 - 1.30 mg/dL [facility] Glucose 281(H) 70 - 199 mg/dL [facility] Comment: Interpretive Data Fasting glucose >/= [...] 2017. Calcium 8.6 8.5 - 10.3 mg/dL [facility] Blood 06/25/2022 4:36 AM CDT 06/25/2022 5:15 AM CDT us Carey East MD LAB BLOOD ORDERABLES Final Result Performing Organization Address City/[facility]/ZIP Co de Phone Number [facility] [place] [address] * (ABNORMAL) POCT glucose (06/25/2022 1:41 AM CDT) Glucose, POC 265(H) 70 - 199 mg/dL [facility] Blood 06/25/2022 1:41 AM CDT 06/25/2022 1:41 AM CDT Carey East MD LAB POCT ORDERABLES - DEVICE Final Result Performing Organization Address [facility] Co de Phone Number [facility] [place] [address] * (ABNORMAL) POCT glucose (06/24/2022 8:01 PM CDT) Glucose, POC 246(H) 70 - 199 mg/dL [facility] Blood 06/24/2022 8:01 PM CDT 06/24/2022 8:01 PM CDT Carey East MD LAB POCT ORDERABLES - DEVICE Final Result Performing Organization Address [facility] Co de Phone Number [facility] [place] [address] * POCT glucose (06/24/2022 4:55 PM CDT) Glucose, POC 185 70 - 199 mg/dL [facility] Blood 06/24/2022 4:55 PM CDT 06/24/2022 4:55 PM CDT Carey East MD LAB POCT ORDERABLES - DEVICE Final Result Performing Organization Address [facility] Co de Phone Number [facility] [place] [address] * (ABNORMAL) POCT glucose (06/24/2022 12:53 PM CDT) Glucose, POC 275(H) 70 - 199 mg/dL [facility] Glucose comment 1 Glu2: RN/MD Notified [facility] Blood 06/24/2022 12:5 3 PM CDT 06/24/2022 12:53 PM CDT Carey East MD LAB POCT ORDERABLES - DEVICE Final Result Performing Organization Address [facility] [place] [address] * (ABNORMAL) POCT glucose (06/24/2022 11:31 AM CDT) Glucose, POC 346(H) 70 - 199 mg/dL [facility] Glucose comment 1 Glu2: RN/MD Notified [facility] Blood 06/24/2022 11:3 1 AM CDT 06/24/2022 11:31 AM CDT Carey East MD LAB POCT ORDERABLES - DEVICE Final Result Performing Organization Address [facility] [place] [address] * (ABNORMAL) POCT glucose (06/24/2022 9:54 AM CDT) Glucose, POC 411(H) 70 - 199 mg/dL [facility] Blood 06/24/2022 9:54 AM CDT 06/24/2022 9:54 AM CDT Carey East MD LAB POCT ORDERABLES - DEVICE Final Result Performing Organization Address [facility] [place] [address] * (ABNORMAL) POCT glucose (06/24/2022 7:33 AM CDT) Glucose, POC 415(H) 70 - 199 mg/dL [facility] Glucose comment 1 Glu2: RN/MD Notified [facility] Blood 06/24/2022 7:33 AM CDT 06/24/2022 7:33 AM CDT Carey East MD LAB POCT ORDERABLES - DEVICE Final Result [facility] [place] [address] * (ABNORMAL) eGFR (06/24/2022 4:10 AM CDT) Pathologist [facility] eGFR 7(L) 90 - 130 mL/min/1. 73 m2 [facility] Comment: Interpretive Data Reference Interval Normal [...] East MD LAB BLOOD ORDERABLES Final Result [facility] [place] [address] * (ABNORMAL) CBC without differential (06/24/2022 4:10 AM CDT) [facility] WBC 4.3 3.8 - 9.9 K/cumm [facility] Hgb 7.9(L) 13.0 - 17.5 g/dL [facility] Hct 24.0(L) 38.9 - 50.3 % [facility] Plt 206 150 - 400 K/cumm [facility] MPV 10.3 9.1 - 12.3 fL [facility] RBC 2.61(L) 4.30 - 5.80 M/cumm [facility] MCV 92.0 81.3 - 96.4 fL [facility] MCH 30.3 27.1 - 33.3 pg [facility] MCHC 32.9 32.3 - 35.7 g/dL [facility] RDW CV 18.5(H) 11.1 - 14.9 % [facility] RDW SD 58.3(H) 35.7 - 48.1 fL [facility] NRBC abs 0.00 0.00 - 0.01 K/cumm [facility] Blood 06/24/2022 4:10 AM CDT 06/24/2022 4:34 AM CDT Carey East MD LAB BLOOD ORDERABLES Final Result Performing Organization Address [facility] [place]/[facility] Co de Phone Number [facility] [place] [address] * (ABNORMAL) Basic metabolic panel (06/24/2022 4:10 AM CDT) [facility] Sodium 134(L) 135 - 145 mmol/L [facility] Potassium, pl 3.9 3.3 - 4.9 mmol/L [facility] Chloride 94(L) 97 - 110 mmol/L [facility] CO2 25 22 - 32 mmol/L [facility] Anion gap 15 2 - 15 mmol/L [facility] BUN 46(H) 8 - 25 mg/dL [facility] Creatinine 8.83(H) 0.80 - 1.30 mg/dL [facility] Glucose 390(H) 70 - 199 mg/dL [facility] Comment: Interpretive Data Fasting glucose >/= [...] 2017. Calcium 8.5 8.5 - 10.3 mg/dL [facility] Blood 06/24/2022 4:10 AM CDT 06/24/2022 4:34 AM CDT Carey East MD LAB BLOOD ORDERABLES Final Result Performing Organization Address City/[facility]/ZIP Co de Phone Number [facility] [place] [place] [address] * (ABNORMAL) POCT glucose (06/24/2022 1:44 AM CDT) [facility] Signature Glucose, POC 389(H) 70 - 199 mg/dL [facility] Blood 06/24/2022 1:44 AM CDT 06/24/2022 1:44 AM CDT Carey East MD LAB POCT ORDERABLES - DEVICE Final Result [facility] [place] [address] * (ABNORMAL) POCT glucose (06/24/2022 1:26 AM CDT) Glucose, POC 428(H) 70 - 199 mg/dL [facility] Blood 06/24/2022 1:26 AM CDT 06/24/2022 1:26 AM CDT Carey East MD LAB POCT ORDERABLES - DEVICE Final Result Performing Organization Address [facility] de Phone Number [facility] [place] [address] * (ABNORMAL) POCT glucose (06/23/2022 8:49 PM CDT) Glucose, POC 306(H) 70 - 199 mg/dL [facility] Blood 06/23/2022 8:4 9 PM CDT 06/23/2022 8:49 PM CDT Carey East MD LAB POCT ORDERABLES - DEVICE Final Result Performing Organization Address [facility] de Phone Number [facility] [place] [address] * (ABNORMAL) POCT glucose (06/23/2022 7:45 PM CDT) Glucose, POC 284(H) 70 - 199 mg/dL [facility] Blood 06/23/2022 7:45 PM CDT 06/23/2022 7:45 PM CDT Carey East MD LAB POCT ORDERABLES - DEVICE Final Result Performing Organization Address [facility] de Phone Number [facility] [place] [address] * POCT glucose (06/23/2022 5:57 PM CDT) Glucose, POC 180 70 - 199 mg/dL [facility] Blood 06/23/2022 5:57 PM CDT 06/23/2022 5:57 PM CDT Carey East MD LAB POCT ORDERABLES - DEVICE Final Result Performing Organization Address [facility] [place]/[facility] Co de Phone Number [facility] [place] [address] * POCT glucose (06/23/2022 4:48 PM CDT) Glucose, POC 152 70 - 199 mg/dL [facility] Blood 06/23/2022 4:48 PM CDT 06/23/2022 4:48 PM CDT Carey East MD LAB POCT ORDERABLES - DEVICE Final Result Performing Organization Address [facility] [place]/[facility] de Phone Number [facility] [place] [address] * POCT glucose (06/23/2022 3:43 PM CDT) Glucose, POC 174 70 - 199 mg/dL [facility] Blood 06/23/2022 3:43 PM CDT 06/23/2022 3:43 PM CDT Carey East MD LAB POCT ORDERABLES - DEVICE Final Result Performing Organization Address [facility] [place] de Phone Number [facility] [place] [address] * (ABNORMAL) POCT glucose (06/23/2022 3:01 PM CDT) Glucose, POC 66(L) 70 - 199 mg/dL [facility] Blood 06/23/2022 3:01 PM CDT 06/23/2022 3:01 PM CDT us aCrey East MD LAB POCT ORDERABLES - DEVICE Final Result Performing Organization Address [facility] [place]/[facility] Co de Phone Number [facility] [place] [address] * (ABNORMAL) eGFR (06/23/2022 2:35 PM CDT) eGFR 7(L) 90 - 130 mL/min/1. 73 m2 [facility] Comment: Interpretive Data Reference Interval Normal [...] BLOOD ORDERABLES Final Result Performing Organization Address City/[facility] Co de Phone Number ALESSANDRA CARRION [facility] [place] [address] * (ABNORMAL) Basic metabolic panel (06/23/2022 2:35 PM CDT) Pathologist [facility] Sodium 137 135 - 145 mmol/L [facility] Potassium, pl 3.6 3.3 - 4.9 mmol/L [facility] Chloride 96(L) 97 - 110 mmol/L [facility] CO2 25 22 - 32 mmol/L [facility] Anion gap 16(H) 2 - 15 mmol/L [facility] BUN 45(H) 8 - 25 mg/dL [facility] Creatinine 8.33(H) 0.80 - 1.30 mg/dL [facility] Glucose 55(L) 70 - 199 mg/dL [facility] Comment: Interpretive Data Fasting glucose >/= [...] 2017. Calcium 8.3(L) 8.5 - 10.3 mg/dL [facility] Blood 06/23/2022 2:35 PM CDT 06/23/2022 3:04 PM CDT us Carey East MD LAB BLOOD ORDERABLES Final Result [facility] [place] [address] * Differential, auto (06/23/2022 2:34 PM CDT) Pathologist [facility] Neutrophil abs 2.7 1.7 - 6.5 K/cumm [facility] Imm gran abs 0.0 0.0 - 0.1 K/cumm [facility] Lymphocyte abs 1.3 0.8 - 3.3 K/cumm [facility] Monocyte abs 0.8 0.2 - 0.8 K/cumm [facility] Eosinophil abs 0.5 0.0 - 0.5 K/cumm [facility] Basophil abs 0.0 0.0 - 0.1 K/cumm [facility] Neutrophil pct 50.3 % [facility] Comment: Interpretive Data Percent cell count reference ranges are not reported, since discordance with absolute values may lead to misinterpretation of CBC data. Current Interpretive Data was last revised on 2017. Imm gran pct 0.6 % [facility] Comment: Interpretive Data Percent cell count reference ranges are not reported, since discordance with absolute values may lead to misinterpretation of CBC data. Current Interpretive Data was last revised on 2017. Lymphocyte pct 23.7 % [facility] Comment: Interpretive Data Percent cell count reference ranges are not reported, since discordance with absolute values may lead to misinterpretation of CBC data. Current Interpretive Data was last revised on 2017. Monocyte pct 15.5 % [facility] Comment: Interpretive Data Percent cell count reference ranges are not reported, since discordance with absolute values may lead to misinterpretation of CBC data. Current Interpretive Data was last revised on 2017. Eosinophil pct 9.2 % [facility] Comment: Interpretive Data Percent cell count reference ranges are not reported, since discordance with absolute values may lead to misinterpretation of CBC data. Current Interpretive Data was last revised on 2017. Basophil pct 0.7 % [facility] Comment: Interpretive Data Percent cell count reference ranges are not reported, since discordance with absolute values may lead to misinterpretation of CBC data. Current Interpretive Data was last revised on 2017. Blood 06/23/2022 2:34 PM CDT 06/23/2022 3:14 PM CDT us Carey East MD LAB BLOOD ORDERABLES Final Result [facility] [place] [address] * (ABNORMAL) CBC with auto differential (06/23/2022 2:34 PM CDT) [facility] WBC 5.4 3.8 - 9.9 K/cumm [facility] Hgb 8.2(L) 13.0 - 17.5 g/dL [facility] Comment:Consistent with ita ent history. Hct 25.2(L) 38.9 - 50.3 % [facility] Plt 215 150 - 400 K/cumm [facility] MPV 10.2 9.1 - 12.3 fL [facility] RBC 2.71(L) 4.30 - 5.80 M/cumm [facility] MCV 93.0 81.3 - 96.4 fL [facility] MCH 30.3 27.1 - 33.3 pg [facility] MCHC 32.5 32.3 - 35.7 g/dL [facility] RDW CV 18.7(H) 11.1 - 14.9 % [facility] RDW SD 57.2(H) 35.7 - 48.1 fL [facility] NRBC abs 0.00 0.00 - 0.01 K/cumm [facility] Blood 06/23/2022 2:34 PM CDT 06/23/2022 3:14 PM CDT us Carey East MD LAB BLOOD ORDERABLES Final Result [facility] [place] [address] * (ABNORMAL) Troponin I high-sensitivity 2-hour (06/23/2022 2:34 PM CDT) [facility] Trop I hs 3,636(C) <=35 ng/L [facility] Comment: Previous critical value noted within 48 hours ago. Interpretive Data For further hscTnI resources including the diagnostic algorithm and an aid in interpretation, copy and paste this link: https://bjhlab.testcatalog.org/show/hsTrop-1 Current Interpretive Data last revised 2020. Trop I hs delta See Comment ng/L [facility] Comment:Inappropriate collec tion time to report a delta. Trop I hs pct delta See Comment % [facility] Comment:Inappropriate collec tion time to report a delta. Trop I hs interp See Comment [facility] Comment:Inappropriate collec tion time to report a delta. Blood 06/23/2022 2:34 PM CDT 06/23/2022 3:14 PM CDT Carey East MD LAB BLOOD ORDERABLES Final Result Performing Organization Address City/[facility]/ZIP Co de Phone Number [facility] [place] [address] * (ABNORMAL) POCT glucose (06/23/2022 2:25 PM CDT) Glucose, POC 69(L) 70 - 199 mg/dL [facility] Blood 06/23/2022 2:25 PM CDT 06/23/2022 2:25 PM CDT Carey East MD LAB POCT ORDERABLES - DEVICE Final Result Performing Organization Address [facility] [place]/[facility] Co de Phone Number [facility] [place] [address] * Critical result callback Cardio chemistry (06/23/2022 2:01 PM CDT) Date Notified [id number] [facility] Time Notified 1454 [facility] Test name Trop I hs base [facility] Called/Read Back Fartun [facility] Credentials RN [facility] Called By karen [facility] Blood 06/23/2022 2:01 PM CDT 06/23/2022 2:16 PM CDT Carey East MD LAB BLOOD ORDERABLES Final Result Performing Organization Address City/[facility]/ZIP Co de Phone Number ALESSNADRA CARRION [facility] [place] [address] * (ABNORMAL) eGFR (06/23/2022 2:01 PM CDT) eGFR 7(L) 90 - 130 mL/min/1. 73 m2 [facility] Comment: Interpretive Data Reference Interval [...] Final Result Performing Organization Address [facility] [place]/[facility] Co de Phone Number ALESSANDRA CARRION [facility] [place] [address] * (ABNORMAL) Troponin I high-sensitivity series (baseline, 2hr, 4hr, 6hr) (06/23/2022 2:01 PM CDT) Trop I hs 3,653(C) <=35 ng/L [facility] Comment: Interpretive Data For further [facility] resources including the diagnostic algorithm and an aid in interpretation, copy and paste this link: https://bjhlab.testcatalog.org/show/hsTrop-1 Current Interpretive Data last revised 2020. Blood 06/23/2022 2:01 PM CDT 06/23/2022 2:16 PM CDT Carey East MD LAB BLOOD ORDERABLES Final Result Performing Organization Address City/[facility] Co de Phone Number [facility] [place] [address] * (ABNORMAL) Phosphorus (06/23/2022 2:01 PM CDT) [facility] Phosphorus, pl 5.2(H) 2.3 - 4.5 mg/dL [facility] Blood 06/23/2022 2:01 PM CDT 06/23/2022 2:16 PM CDT Carey East MD LAB BLOOD ORDERABLES Final Result Performing Organization Address City/[facility]/ZIP Co de Phone Number [facility] [place] [address] * (ABNORMAL) Magnesium (06/23/2022 2:01 PM CDT) Pathologist [facility] Magnesium 2.8(H) 1.4 - 2.5 mg/dL [facility] Blood 06/23/2022 2:01 PM CDT 06/23/2022 2:16 PM CDT Carey East MD LAB BLOOD ORDERABLES Final Result Performing Organization Address City/[facility]/ZIP Co de Phone Number [facility] [place] [address] * (ABNORMAL) CBC without differential (06/23/2022 2:01 PM CDT) [facility] WBC 5.9 3.8 - 9.9 K/cumm [facility] Hgb 4.6(C) 13.0 - 17.5 g/dL [facility] Comment:Critical result call ed to and read back by MOUSTAPHA RAMSAY(RN) on 06 23 2022 at 1428 to Erin Kidd. Hct 14.2(L) 38.9 - 50.3 % [facility] Plt 253 150 - 400 K/cumm [facility] MPV 10.1 9.1 - 12.3 fL [facility] RBC 1.51(L) 4.30 - 5.80 M/cumm [facility] MCV 94.0 81.3 - 96.4 fL [facility] MCH 30.5 27.1 - 33.3 pg [facility] MCHC 32.4 32.3 - 35.7 g/dL [facility] RDW CV 18.4(H) 11.1 - 14.9 % [facility] RDW SD 58.0(H) 35.7 - 48.1 fL [facility] NRBC abs 0.00 0.00 - 0.01 K/cumm [facility] Blood 06/23/2022 2:01 PM CDT 06/23/2022 2:17 PM CDT Narrative [facility] - 06/23/2022 2:29 PM CDT While on heparin infusion us Carey East MD LAB BLOOD ORDERABLES Final Result [facility] [place] [address] * (ABNORMAL) Basic metabolic panel (06/23/2022 2:01 PM CDT) [facility] Sodium 136 135 - 145 mmol/L [facility] Potassium, pl 3.4 3.3 - 4.9 mmol/L [facility] Chloride 96(L) 97 - 110 mmol/L [facility] CO2 25 22 - 32 mmol/L [facility] Anion gap 15 2 - 15 mmol/L [facility] BUN 45(H) 8 - 25 mg/dL [facility] Creatinine 8.21(H) 0.80 - 1.30 mg/dL [facility] Glucose 60(L) 70 - 199 mg/dL [facility] Comment: Interpretive Data Fasting glucose >/= [...] 2017. Calcium 8.3(L) 8.5 - 10.3 mg/dL [facility] Blood 06/23/2022 2:01 PM CDT 06/23/2022 2:16 PM CDT Carey East MD LAB BLOOD ORDERABLES Final Result Performing Organization Address [facility] [place]/[facility]/ZIP Co de Phone Number [facility] [place] [address] * POCT glucose (06/23/2022 1:42 PM CDT) Glucose, POC 79 70 - 199 mg/dL [facility] Blood 06/23/2022 1:42 PM CDT 06/23/2022 1:42 PM CDT Carey East MD LAB POCT ORDERABLES - DEVICE Final Result Performing Organization Address City/[facility]/ZIP Co de Phone Number [facility] [place] [address] * ECG 12 lead (06/23/2022 1:30 PM CDT) [facility] Ventricular Rate EKG/Min 100 BPM [facility] Atrial Rate 100 BPM [facility] MI-Interval (MSEC) 182 ms [facility] QRS-Interval (MSEC) 106 ms [facility] QT-Interval (MSEC) 380 ms [facility] QTc 490 ms [facility] R [place] -47 degrees [facility] T [place] 105 degrees [facility] Diagnosis Sinus rhythm with Premature [...] SAL M.D ([id number]) on 06/23/2022 4:28:23 PM [facility] 06/23/2022 1:30 PM CDT 06/23/2022 4:28 PM CDT Carey East MD ECG ORDERABLES Ann Marie l Result [facility] * POCT glucose (06/23/2022 1:20 PM CDT) [facility] Glucose, POC 88 70 - 199 mg/dL [facility] Blood 06/23/2022 1:20 PM CDT 06/23/2022 1:20 PM CDT Carey East MD LAB POCT ORDERABLES - DEVICE Final Result [facility] [place] [address] * POCT glucose (06/23/2022 11:48 AM CDT) Glucose, POC 163 70 - 199 mg/dL [facility] Blood 06/23/2022 11:4 8 AM CDT 06/23/2022 11:48 AM CDT us Carey East MD LAB POCT ORDERABLES - DEVICE Final Result [facility] [place] [address] * (ABNORMAL) POCT glucose (06/23/2022 7:28 AM CDT) Glucose, POC 320(H) 70 - 199 mg/dL [facility] Blood 06/23/2022 7:28 AM CDT 06/23/2022 7:28 AM CDT us Catherine Adams MD LAB POCT ORDERABLES - DEVIC E Final Result Performing Organization Address City/[facility]/ZIP Co de Phone Number [facility] [place] [address] * (ABNORMAL) Magnesium (06/23/2022 4:21 AM CDT) Magnesium 2.9(H) 1.4 - 2.5 mg/dL [facility] Blood 06/23/2022 4:21 AM CDT 06/23/2022 5:58 AM CDT us Luiz Lewis DO LAB BLOOD ORDERABLES Final Res ult [facility] [place] [employer] [address] * (ABNORMAL) CBC without differential (06/23/2022 4:21 AM CDT) WBC 4.4 3.8 - 9.9 K/cumm [facility] Hgb 8.1(L) 13.0 - 17.5 g/dL [facility] Hct 25.8(L) 38.9 - 50.3 % [facility] Plt 206 150 - 400 K/cumm [facility] MPV 10.4 9.1 - 12.3 fL [facility] RBC 2.76(L) 4.30 - 5.80 M/cumm [facility] MCV 93.5 81.3 - 96.4 fL [facility] MCH 29.3 27.1 - 33.3 pg [facility] MCHC 31.4(L) 32.3 - 35.7 g/dL [facility] RDW CV 18.8(H) 11.1 - 14.9 % [facility] RDW SD 58.8(H) 35.7 - 48.1 fL [facility] NRBC abs 0.00 0.00 - 0.01 K/cumm [facility] Blood 06/23/2022 4:21 AM CDT 06/23/2022 5:58 AM CDT Narrative [facility] - 06/23/2022 6:08 AM CDT While on heparin infusion us Luiz Lewis DO LAB BLOOD ORDERABLES Final Res ult [facility] [place] [address] * (ABNORMAL) POCT glucose (06/23/2022 1:38 AM CDT) [facility] Glucose, POC 244(H) 70 - 199 mg/dL [facility] Blood 06/23/2022 1:38 AM CDT 06/23/2022 1:38 AM CDT us Catherine Adams MD LAB POCT ORDERABLES - DEVIC E Final Result [facility] [place] [address] * (ABNORMAL) Phosphorus (06/22/2022 9:28 PM CDT) [facility] Phosphorus, pl 5.8(H) 2.3 - 4.5 mg/dL [facility] Blood 06/22/2022 9:28 PM CDT 06/22/2022 10:27 PM CDT Catherine Adams MD LAB BLOOD ORDERABLES Final Result Performing Organization Address City/[facility]/ZIP Co de Phone Number [facility] [place] [address] * POCT glucose (06/22/2022 9:14 PM CDT) [facility] Glucose, POC 176 70 - 199 mg/dL [facility] Blood 06/22/2022 9:14 PM CDT 06/22/2022 9:14 PM CDT Catherine Adams MD LAB POCT ORDERABLES - DEVIC E Final Result Performing Organization Address City/[facility] Co de Phone Number [facility] [place] [address] * POCT glucose (06/22/2022 5:37 PM CDT) [facility] Glucose, POC 88 70 - 199 mg/dL [facility] Blood 06/22/2022 5:37 PM CDT 06/22/2022 5:37 PM CDT Catherine Adams MD LAB POCT ORDERABLES - DEVIC E Final Result Performing Organization Address City/[facility] Co de Phone Number [facility] [place] [address] * (ABNORMAL) eGFR (06/22/2022 3:21 PM CDT) [facility] eGFR 8(L) 90 - 130 mL/min/1. 73 m2 [facility] Comment: Interpretive Data Reference Interval Normal [...] 06/22/2022 3:52 PM CDT us Marcelina Lo [employer]UMENT [employer]PECT[employer] LAB BLOOD ORDERABLES Final Re sult [facility] [place] [address] * Differential, auto (06/22/2022 3:21 PM CDT) [facility] Neutrophil abs 2.5 1.7 - 6.5 K/cumm [facility] Imm gran abs 0.0 0.0 - 0.1 K/cumm [facility] Lymphocyte abs 1.2 0.8 - 3.3 K/cumm [facility] Monocyte abs 0.8 0.2 - 0.8 K/cumm [facility] Eosinophil abs 0.5 0.0 - 0.5 K/cumm [facility] Basophil abs 0.0 0.0 - 0.1 K/cumm [facility] Neutrophil pct 51.2 % [facility] Comment: Interpretive Data Percent cell count reference ranges are not reported, since discordance with absolute values may lead to misinterpretation of CBC data. Current Interpretive Data was last revised on 2017. Imm gran pct 0.4 % [facility] Comment: Interpretive Data Percent cell count reference ranges are not reported, since discordance with absolute values may lead to misinterpretation of CBC data. Current Interpretive Data was last revised on 2017. Lymphocyte pct 23.3 % [facility] Comment: Interpretive Data Percent cell count reference ranges are not reported, since discordance with absolute values may lead to misinterpretation of CBC data. Current Interpretive Data was last revised on 2017. Monocyte pct 15.4 % [facility] Comment: Interpretive Data Percent cell count reference ranges are not reported, since discordance with absolute values may lead to misinterpretation of CBC data. Current Interpretive Data was last revised on 2017. Eosinophil pct 9.3 % [facility] Comment: Interpretive Data Percent cell count reference ranges are not reported, since discordance with absolute values may lead to misinterpretation of CBC data. Current Interpretive Data was last revised on 2017. Basophil pct 0.4 % [facility] Comment: Interpretive Data Percent cell count reference ranges are not reported, since discordance with absolute values may lead to misinterpretation of CBC data. Current Interpretive Data was last revised on 2017. Blood 06/22/2022 3:21 PM CDT 06/22/2022 3:52 PM CDT us Catherine Adams MD LAB BLOOD ORDERABLES Final Result [facility] [place] [address] * (ABNORMAL) CBC with auto differential (06/22/2022 3:21 PM CDT) WBC 4.9 3.8 - 9.9 K/cumm [facility] Hgb 7.8(L) 13.0 - 17.5 g/dL [facility] Hct 24.1(L) 38.9 - 50.3 % [facility] Plt 183 150 - 400 K/cumm [facility] MPV 10.2 9.1 - 12.3 fL [facility] RBC 2.54(L) 4.30 - 5.80 M/cumm [facility] MCV 94.9 81.3 - 96.4 fL [facility] MCH 30.7 27.1 - 33.3 pg [facility] MCHC 32.4 32.3 - 35.7 g/dL [facility] RDW CV 18.5(H) 11.1 - 14.9 % [facility] RDW SD 58.2(H) 35.7 - 48.1 fL [facility] NRBC abs 0.00 0.00 - 0.01 K/cumm [facility] Blood 06/22/2022 3:21 PM CDT 06/22/2022 3:52 PM CDT us Catherine Adams MD LAB BLOOD ORDERABLES Final Result [place] [address] * (ABNORMAL) Magnesium (06/22/2022 3:21 PM CDT) Pathologist [facility] Magnesium 2.9(H) 1.4 - 2.5 mg/dL [facility] Blood 06/22/2022 3:21 PM CDT 06/22/2022 3:52 PM CDT us Marcelina Lo NP LAB BLOOD ORDERABLES Final Re sult [facility] [place] [address] * (ABNORMAL) Comprehensive metabolic panel (06/22/2022 3:21 PM CDT) Sodium 138 135 - 145 mmol/L [facility] Potassium, pl 3.7 3.3 - 4.9 mmol/L [facility] Chloride 99 97 - 110 mmol/L [facility] CO2 27 22 - 32 mmol/L [facility] Anion gap 12 2 - 15 mmol/L [facility] BUN 42(H) 8 - 25 mg/dL [facility] Creatinine 7.25(H) 0.80 - 1.30 mg/dL [facility] Glucose 103 70 - 199 mg/dL [facility] Comment: Interpretive Data Fasting glucose >/= [...] 2017. Calcium 8.6 8.5 - 10.3 mg/dL [facility] Bilirubin, total 0.4 0.1 - 1.2 mg/dL [facility] Protein, pl 6.1(L) 6.5 - 8.5 g/dL [facility] Albumin 2.9(L) 3.5 - 5.0 g/dL [facility] Alk phos 112 40 - 130 Units/L [facility] ALT 31 7 - 55 Units/L [facility] AST 41 10 - 50 Units/L [facility] Blood 06/22/2022 3:21 PM CDT 06/22/2022 3:52 PM CDT us Marcelina Lo NP LAB BLOOD ORDERABLES Final Re sult [facility] [place] [address] * POCT glucose (06/22/2022 11:38 AM CDT) Glucose, POC 162 70 - 199 mg/dL [facility] Blood 06/22/2022 11:3 8 AM CDT 06/22/2022 11:38 AM CDT Catherine Adams MD LAB POCT ORDERABLES - DEVIC E Final Result Performing Organization Address City/[facility] Co de Phone Number [place] [address] * POCT glucose (06/22/2022 10:46 AM CDT) Glucose, POC 197 70 - 199 mg/dL [facility] Blood 06/22/2022 10:4 6 AM CDT 06/22/2022 10:46 AM CDT Catherine Adams MD LAB POCT ORDERABLES - DEVIC E Final Result Performing Organization Address City/[facility] Co de Phone Number [facility] [place] [address] * (ABNORMAL) POCT glucose (06/22/2022 9:07 AM CDT) Glucose, POC 313(H) 70 - 199 mg/dL [facility] Blood 06/22/2022 9:07 AM CDT 06/22/2022 9:07 AM CDT us Catherine Adams MD LAB POCT ORDERABLES - DEVIC E Final Result Performing Organization Address City/[facility] Co de Phone Number [facility] [place] [address] * (ABNORMAL) POCT glucose (06/22/2022 7:40 AM CDT) Glucose, POC 364(H) 70 - 199 mg/dL [facility] Blood 06/22/2022 7:40 AM CDT 06/22/2022 7:40 AM CDT us Catherine Adams MD LAB POCT ORDERABLES - DEVIC E Final Result Performing Organization Address [facility] Co de Phone Number [facility] [place] [address] * (ABNORMAL) POCT glucose (06/22/2022 7:38 AM CDT) Glucose, POC 318(H) 70 - 199 mg/dL [facility] Blood 06/22/2022 7:38 AM CDT 06/22/2022 7:38 AM CDT us Catherine Adams MD LAB POCT ORDERABLES - DEVIC E Final Result Performing Organization Address [facility] de Phone Number [facility] [place] [address] * (ABNORMAL) POCT glucose (06/22/2022 5:54 AM CDT) Glucose, POC 370(H) 70 - 199 mg/dL [facility] Blood 06/22/2022 5:54 AM CDT 06/22/2022 5:54 AM CDT Catherine Adams MD LAB POCT ORDERABLES - DEVIC E Final Result Performing Organization Address City/[facility] de Phone Number [facility] [place] [address] * (ABNORMAL) eGFR (06/21/2022 9:55 PM CDT) eGFR 10(L) 90 - 130 mL/min/1. 73 m2 [facility] Comment: Interpretive Data Reference Interval Normal [...] 06/21/2022 10:14 PM CDT us Marcelina Lo OPTICAL INSTRUMENT INSPECTOR LAB BLOOD ORDERABLES Final Re sult [facility] [place] [address] * Differential, auto (06/21/2022 9:55 PM CDT) Neutrophil abs 3.7 1.7 - 6.5 K/cumm [facility] Imm gran abs 0.0 0.0 - 0.1 K/cumm [facility] Lymphocyte abs 1.0 0.8 - 3.3 K/cumm [facility] Monocyte abs 0.8 0.2 - 0.8 K/cumm [facility] Eosinophil abs 0.3 0.0 - 0.5 K/cumm [facility] Basophil abs 0.0 0.0 - 0.1 K/cumm [facility] Neutrophil pct 63.3 % [facility] Comment: Interpretive Data Percent cell count reference ranges are not reported, since discordance with absolute values may lead to misinterpretation of CBC data. Current Interpretive Data was last revised on 2017. Imm gran pct 0.5 % [facility] Comment: Interpretive Data Percent cell count reference ranges are not reported, since discordance with absolute values may lead to misinterpretation of CBC data. Current Interpretive Data was last revised on 2017. Lymphocyte pct 16.3 % [facility] Comment: Interpretive Data Percent cell count reference ranges are not reported, since discordance with absolute values may lead to misinterpretation of CBC data. Current Interpretive Data was last revised on 2017. Monocyte pct 14.3 % [facility] Comment: Interpretive Data Percent cell count reference ranges are not reported, since discordance with absolute values may lead to misinterpretation of CBC data. Current Interpretive Data was last revised on 2017. Eosinophil pct 5.1 % [facility] Comment: Interpretive Data Percent cell count reference ranges are not reported, since discordance with absolute values may lead to misinterpretation of CBC data. Current Interpretive Data was last revised on 2017. Basophil pct 0.5 % [facility] Comment: Interpretive Data Percent cell count reference ranges are not reported, since discordance with absolute values may lead to misinterpretation of CBC data. Current Interpretive Data was last revised on 2017. Blood 06/21/2022 9:55 PM CDT 06/21/2022 10:14 PM CDT us Catherine Adams MD LAB BLOOD ORDERABLES Final Result [facility] [place] [address] * (ABNORMAL) POCT glucose (06/21/2022 9:55 PM CDT) Glucose, POC 272(H) 70 - 199 mg/dL [facility] Blood 06/21/2022 9:55 PM CDT 06/21/2022 9:55 PM CDT Result [facility] Catherine Adams MD LAB POCT ORDERABLES - DEVIC E Final Result Performing Organization Address [facility] Co de Phone Number [facility] [place] [place] [address] * (ABNORMAL) CBC with auto differential (06/21/2022 9:55 PM CDT) [facility] WBC 5.9 3.8 - 9.9 K/cumm [facility] Hgb 7.5(L) 13.0 - 17.5 g/dL [facility] Hct 23.6(L) 38.9 - 50.3 % [facility] Plt 174 150 - 400 K/cumm [facility] MPV 9.7 9.1 - 12.3 fL [facility] RBC 2.51(L) 4.30 - 5.80 M/cumm [facility] MCV 94.0 81.3 - 96.4 fL [facility] MCH 29.9 27.1 - 33.3 pg [facility] MCHC 31.8(L) 32.3 - 35.7 g/dL [facility] RDW CV 18.9(H) 11.1 - 14.9 % [facility] RDW SD 60.0(H) 35.7 - 48.1 fL [facility] NRBC abs 0.02(H) 0.00 - 0.01 K/cumm [facility] Blood 06/21/2022 9:55 PM CDT 06/21/2022 10:14 PM CDT Catherine Adams MD LAB BLOOD ORDERABLES Final Result Performing Organization Address City/[facility]/ZIP Co de Phone Number [facility] [place] [address] * Lactate (06/21/2022 9:55 PM CDT) Lactate 0.8 0.7 - 2.0 mmol/L [facility] Blood 06/21/2022 9:55 PM CDT 06/21/2022 10:14 PM CDT Catherine Adams MD LAB BLOOD ORDERABLES Final Result [facility] [place] [address] * (ABNORMAL) Triglycerides (06/21/2022 9:55 PM CDT) Triglycerides 183(H) <=149 mg/dL [facility] Comment: Interpretive Data Ages < or [...] CDT 06/21/2022 10:15 PM CDT Narrative [facility] - 06/21/2022 10:45 PM CDT While on propofol infusion. us Catherine Adams MD LAB BLOOD ORDERABLES Final Result Performing Organization Address [facility] Co de Phone Number [facility] [place] [address] * (ABNORMAL) Phosphorus (06/21/2022 9:55 PM CDT) Phosphorus, pl 4.8(H) 2.3 - 4.5 mg/dL [facility] Blood 06/21/2022 9:55 PM CDT 06/21/2022 10:15 PM CDT us Marcelina Lo OPTICAL INSTRUMENT INSPECTOR LAB BLOOD ORDERABLES Final Re sult Performing Organization Address [facility] de Phone Number [facility] [place] [address] * (ABNORMAL) Lipase (06/21/2022 9:55 PM CDT) Lipase 227(H) 10 - 99 Units/L [facility] Blood 06/21/2022 9:55 PM CDT 06/21/2022 10:15 PM CDT Marcelina Lo OPTICAL INSTRUMENT INSPECTOR LAB BLOOD ORDERABLES Final Re sult Performing Organization Address [facility] Co de Phone Number [facility] [place] [address] * (ABNORMAL) Magnesium (06/21/2022 9:55 PM CDT) Magnesium 2.8(H) 1.4 - 2.5 mg/dL [facility] Blood 06/21/2022 9:55 PM CDT 06/21/2022 10:14 PM CDT Marcelina Lo OPTICAL INSTRUMENT INSPECTOR LAB BLOOD ORDERABLES Final Re sult Performing Organization Address [facility]/ZIP Co de Phone Number [facility] Department [place] [address] * (ABNORMAL) Comprehensive metabolic panel (06/21/2022 9:55 PM CDT) Sodium 136 135 - 145 mmol/L [facility] Potassium, pl 4.0 3.3 - 4.9 mmol/L [facility] Chloride 98 97 - 110 mmol/L [facility] CO2 24 22 - 32 mmol/L [facility] Anion gap 14 2 - 15 mmol/L [facility] BUN 41(H) 8 - 25 mg/dL [facility] Creatinine 6.03(H) 0.80 - 1.30 mg/dL [facility] Glucose 276(H) 70 - 199 mg/dL [facility] Comment: Interpretive Data Fasting glucose >/= [...] 2017. Calcium 8.4(L) 8.5 - 10.3 mg/dL [facility] Bilirubin, total 0.5 0.1 - 1.2 mg/dL [facility] Protein, pl 5.9(L) 6.5 - 8.5 g/dL [facility] Albumin 2.7(L) 3.5 - 5.0 g/dL [facility] Alk phos 111 40 - 130 Units/L [facility] ALT 32 7 - 55 Units/L [facility] AST 48 10 - 50 Units/L [facility] Blood 06/21/2022 9:55 PM CDT 06/21/2022 10:14 PM CDT us Marcelina Lo OPTICAL INSTRUMENT INSPECTOR LAB BLOOD ORDERABLES Final Re sult [facility] [place] [address] * (ABNORMAL) Differential, auto (06/21/2022 5:23 PM [...] [facility] Neutrophil pct 62.4 % [facility] Comment: Interpretive Data Percent cell count reference ranges are not reported, since discordance with absolute values may lead to misinterpretation of CBC data. Current Interpretive Data was last revised on 2017. Imm gran pct 0.8 % [facility] Comment: Interpretive Data Percent cell count reference ranges are not reported, since discordance with absolute values may lead to misinterpretation of CBC data. Current Interpretive Data was last revised on 2017. Lymphocyte pct 18.5 % [facility] Comment: Interpretive Data Percent cell count reference ranges are not reported, since discordance with absolute values may lead to misinterpretation of CBC data. Current Interpretive Data was last revised on 2017. Monocyte pct 13.7 % [facility] Comment: Interpretive Data Percent cell count reference ranges are not reported, since discordance with absolute values may lead to misinterpretation of CBC data. Current Interpretive Data was last revised on 2017. Eosinophil pct 4.0 % [facility] Comment: Interpretive Data Percent cell count reference ranges are not reported, since discordance with absolute values may lead to misinterpretation of CBC data. Current Interpretive Data was last revised on 2017. Basophil pct 0.6 % [facility] Comment: Interpretive Data Percent cell count reference ranges are not reported, since discordance with absolute values may lead to misinterpretation of CBC data. Current Interpretive Data was last revised on 2017. Blood 06/21/2022 5:23 PM CDT 06/21/2022 5:45 PM CDT Catherine Adams MD LAB BLOOD ORDERABLES Final Result Performing Organization Address [facility] Co de Phone Number [facility] [place] [address] * (ABNORMAL) CBC with auto differential (06/21/2022 5:23 PM CDT) Pathologist [facility] WBC 6.5 3.8 - 9.9 K/cumm [facility] Hgb 7.5(L) 13.0 - 17.5 g/dL [facility] Hct 23.0(L) 38.9 - 50.3 % [facility] Plt 177 150 - 400 K/cumm [facility] MPV 9.8 9.1 - 12.3 fL [facility] RBC 2.44(L) 4.30 - 5.80 M/cumm [facility] MCV 94.3 81.3 - 96.4 fL [facility] MCH 30.7 27.1 - 33.3 pg [facility] MCHC 32.6 32.3 - 35.7 g/dL [facility] RDW CV 19.0(H) 11.1 - 14.9 % [facility] RDW SD 60.9(H) 35.7 - 48.1 fL [facility] NRBC abs 0.00 0.00 - 0.01 K/cumm [facility] Blood 06/21/2022 5:23 PM CDT 06/21/2022 5:45 PM CDT Catherine Adams MD LAB BLOOD ORDERABLES Final Result Performing Organization Address City/[facility]/ZIP Co de Phone Number [facility] [place] [address] * POCT glucose (06/21/2022 4:08 PM CDT) Glucose, POC 138 70 - 199 mg/dL [facility] Blood 06/21/2022 4:08 PM CDT 06/21/2022 4:08 PM CDT us Catherine Adams MD LAB POCT ORDERABLES - DEVIC E Final Result [facility] [place] [address] * [place] Modified Barium Swallow W Video [...] MD IMG FLUOROSCOPY PROCEDURES Final Result * FIRE CREW SPECIALIST Evaluate and Treat (VFSS) (06/21/2022 2:02 [...] reported General Information Adelia Garvin Jr. 06/21/22 FIRE CREW SPECIALIST Received On: 06/21/22 General Observations: presents [...] Administered: Thin liquids (via spoon & straw), [place] thickened liquids (via spoon & straw), Purees, Honey thickened liquids via spoon, Solids. Patient took large sips requiring more than 1 swallow even when cued for small sip. Administered consistencies contain barium product. Thin Liquids: Laryngeal Penetration: Present Aspiration Present: No Penetration Aspiration Scale-Thin: 4-Material enters the airway, contacts the vocal folds and is ejected from the airway [place] Thickened Liquids: Laryngeal Penetration: Present Aspiration Present: No Penetration Aspiration Scale-[place]: 2-Material enters the airway, remains above the [...] treatment goals and details, if indicated. Plan FIRE CREW SPECIALIST Frequency of Services: 2-3x/wk FIRE CREW SPECIALIST Recommendation (Add'l Services): Inpatient Rehab Facility Next Visit Plan: treatment/therapy Additional Referrals: none at this time Discharge Summary Statement If this is the last swallow therapy visit, this serves as the discharge summary. us Catherine Adams MD FIRE CREW SPECIALIST ORDERABLES Final Resul t * POCT glucose (06/21/2022 12:00 PM CDT) Glucose, POC 157 70 - 199 mg/dL [facility] Blood 06/21/2022 12:0 0 PM CDT 06/21/2022 12:00 PM CDT us Catherine Adams MD LAB POCT ORDERABLES - DEVIC E Final Result Performing Organization Address City/State/[facility] Co de Phone Number [facility] [place] [address] * (ABNORMAL) eGFR (06/21/2022 8:38 AM CDT) eGFR 12(L) 90 - 130 mL/min/1. 73 m2 [facility] Comment: Interpretive Data Reference Interval Normal [...] NP LAB BLOOD ORDERABLES Final Re sult [facility] [place] [address] * Differential, auto (06/21/2022 8:38 AM CDT) Neutrophil abs 3.3 1.7 - 6.5 K/cumm [facility] Imm gran abs 0.0 0.0 - 0.1 K/cumm [facility] Lymphocyte abs 1.2 0.8 - 3.3 K/cumm [facility] Monocyte abs 0.7 0.2 - 0.8 K/cumm [facility] Eosinophil abs 0.1 0.0 - 0.5 K/cumm [facility] Basophil abs 0.1 0.0 - 0.1 K/cumm [facility] Neutrophil pct 60.8 % [facility] Comment: Interpretive Data Percent cell count reference ranges are not reported, since discordance with absolute values may lead to misinterpretation of CBC data. Current Interpretive Data was last revised on 2017. Imm gran pct 0.7 % [facility] Comment: Interpretive Data Percent cell count reference ranges are not reported, since discordance with absolute values may lead to misinterpretation of CBC data. Current Interpretive Data was last revised on 2017. Lymphocyte pct 22.0 % [facility] Comment: Interpretive Data Percent cell count reference ranges are not reported, since discordance with absolute values may lead to misinterpretation of CBC data. Current Interpretive Data was last revised on 2017. Monocyte pct 13.7 % [facility] Comment: Interpretive Data Percent cell count reference ranges are not reported, since discordance with absolute values may lead to misinterpretation of CBC data. Current Interpretive Data was last revised on 2017. Eosinophil pct 1.9 % [facility] Comment: Interpretive Data Percent cell count reference ranges are not reported, since discordance with absolute values may lead to misinterpretation of CBC data. Current Interpretive Data was last revised on 2017. Basophil pct 0.9 % [facility] Comment: Interpretive Data Percent cell count reference ranges are not reported, since discordance with absolute values may lead to misinterpretation of CBC data. Current Interpretive Data was last revised on 2017. Blood 06/21/2022 8:38 AM CDT 06/21/2022 9:10 AM CDT Catherine Adams MD LAB BLOOD ORDERABLES Final Result Performing Organization Address City/[facility]/ZIP Co de Phone Number [facility] [place] [address] * (ABNORMAL) CBC with auto differential (06/21/2022 8:38 AM CDT) [facility] WBC 5.4 3.8 - 9.9 K/cumm [facility] Hgb 9.0(L) 13.0 - 17.5 g/dL [facility] Hct 27.8(L) 38.9 - 50.3 % [facility] Plt 171 150 - 400 K/cumm [facility] MPV 9.8 9.1 - 12.3 fL [facility] RBC 3.01(L) 4.30 - 5.80 M/cumm [facility] MCV 92.4 81.3 - 96.4 fL [facility] MCH 29.9 27.1 - 33.3 pg [facility] MCHC 32.4 32.3 - 35.7 g/dL [facility] RDW CV 19.9(H) 11.1 - 14.9 % [facility] RDW SD 63.2(H) 35.7 - 48.1 fL [facility] NRBC abs 0.02(H) 0.00 - 0.01 K/cumm [facility] Blood 06/21/2022 8:38 AM CDT 06/21/2022 9:10 AM CDT Catherine Adams MD LAB BLOOD ORDERABLES Final Result Performing Organization Address City/[facility]/ZIP Co de Phone Number [facility] [place] [address] * (ABNORMAL) Magnesium (06/21/2022 8:38 AM CDT) Magnesium 2.8(H) 1.4 - 2.5 mg/dL [facility] Blood 06/21/2022 8:38 AM CDT 06/21/2022 9:10 AM CDT us Marcelina Lo OPTICAL INSTRUMENT INSPECTOR LAB BLOOD ORDERABLES Final Re sult [facility] [place] [address] * (ABNORMAL) Comprehensive metabolic panel (06/21/2022 8:38 AM CDT) Sodium 139 135 - 145 mmol/L [facility] Potassium, pl 4.0 3.3 - 4.9 mmol/L [facility] Chloride 101 97 - 110 mmol/L [facility] CO2 27 22 - 32 mmol/L [facility] Anion gap 11 2 - 15 mmol/L [facility] BUN 36(H) 8 - 25 mg/dL [facility] Creatinine 5.26(H) 0.80 - 1.30 mg/dL [facility] Glucose 199 70 - 199 mg/dL [facility] Comment: Interpretive Data Fasting glucose >/= [...] 2017. Calcium 8.4(L) 8.5 - 10.3 mg/dL [facility] Bilirubin, total 0.4 0.1 - 1.2 mg/dL [facility] Protein, pl 5.6(L) 6.5 - 8.5 g/dL [facility] Albumin 2.7(L) 3.5 - 5.0 g/dL [facility] Alk phos 115 40 - 130 Units/L [facility] ALT 28 7 - 55 Units/L [facility] AST 52(H) 10 - 50 Units/L [facility] Blood 06/21/2022 8:38 AM CDT 06/21/2022 9:10 AM CDT us Marcelina Lo OPTICAL INSTRUMENT INSPECTOR LAB BLOOD ORDERABLES Final Re sult [facility] [place] [address] * POCT glucose (06/21/2022 8:34 AM CDT) Glucose, POC 199 70 - 199 mg/dL [facility] Blood 06/21/2022 8:34 AM CDT 06/21/2022 8:34 AM CDT us Catherine Adams MD LAB POCT ORDERABLES - DEVIC E Final Result Performing Organization Address [facility] Co de Phone Number [facility] [place] [address] * (ABNORMAL) POCT glucose (06/21/2022 5:30 AM CDT) Glucose, POC 270(H) 70 - 199 mg/dL [facility] Blood 06/21/2022 5:30 AM CDT 06/21/2022 5:30 AM CDT us Catherine Adams MD LAB POCT ORDERABLES - DEVIC E Final Result Performing Organization Address [facility] Co de Phone Number [facility] [place] [address] * (ABNORMAL) POCT glucose (06/21/2022 12:22 AM CDT) Glucose, POC 231(H) 70 - 199 mg/dL [facility] Blood 06/21/2022 12:2 2 AM CDT 06/21/2022 12:22 AM CDT Catherine Adams MD LAB POCT ORDERABLES - DEVIC E Final Result [facility] [place] [address] * Differential, auto (06/21/2022 12:21 AM CDT) Pathologist [facility] Neutrophil abs 4.4 1.7 - 6.5 K/cumm [facility] Imm gran abs 0.1 0.0 - 0.1 K/cumm [facility] Lymphocyte abs 1.2 0.8 - 3.3 K/cumm [facility] Monocyte abs 0.8 0.2 - 0.8 K/cumm [facility] Eosinophil abs 0.1 0.0 - 0.5 K/cumm [facility] Basophil abs 0.0 0.0 - 0.1 K/cumm [facility] Neutrophil pct 67.5 % [facility] Comment: Interpretive Data Percent cell count reference ranges are not reported, since discordance with absolute values may lead to misinterpretation of CBC data. Current Interpretive Data was last revised on 2017. Imm gran pct 0.9 % [facility] Comment: Interpretive Data Percent cell count reference ranges are not reported, since discordance with absolute values may lead to misinterpretation of CBC data. Current Interpretive Data was last revised on 2017. Lymphocyte pct 18.3 % [facility] Comment: Interpretive Data Percent cell count reference ranges are not reported, since discordance with absolute values may lead to misinterpretation of CBC data. Current Interpretive Data was last revised on 2017. Monocyte pct 11.7 % [facility] Comment: Interpretive Data Percent cell count reference ranges are not reported, since discordance with absolute values may lead to misinterpretation of CBC data. Current Interpretive Data was last revised on 2017. Eosinophil pct 1.1 % [facility] Comment: Interpretive Data Percent cell count reference ranges are not reported, since discordance with absolute values may lead to misinterpretation of CBC data. Current Interpretive Data was last revised on 2017. Basophil pct 0.5 % [facility] Comment: Interpretive Data Percent cell count reference ranges are not reported, since discordance with absolute values may lead to misinterpretation of CBC data. Current Interpretive Data was last revised on 2017. Blood 06/21/2022 12:2 1 AM CDT 06/21/2022 12:50 AM CDT us Catherine Adams MD LAB BLOOD ORDERABLES Final Result [facility] [place] [address] * (ABNORMAL) CBC with auto differential (06/21/2022 12:21 AM CDT) Pathologist [facility] WBC 6.5 3.8 - 9.9 K/cumm [facility] Hgb 7.4(L) 13.0 - 17.5 g/dL [facility] Hct 23.6(L) 38.9 - 50.3 % [facility] Plt 179 150 - 400 K/cumm [facility] MPV 9.8 9.1 - 12.3 fL [facility] RBC 2.49(L) 4.30 - 5.80 M/cumm [facility] MCV 94.8 81.3 - 96.4 fL [facility] MCH 29.7 27.1 - 33.3 pg [facility] MCHC 31.4(L) 32.3 - 35.7 g/dL [facility] RDW CV 20.0(H) 11.1 - 14.9 % [facility] RDW SD 66.2(H) 35.7 - 48.1 fL [facility] NRBC abs 0.04(H) 0.00 - 0.01 K/cumm [facility] Blood 06/21/2022 12:2 1 AM CDT 06/21/2022 12:50 AM CDT Catherine Adams MD LAB BLOOD ORDERABLES Final Result Performing Organization Address City/[facility] Co de Phone Number [facility] [place] [address] * POCT glucose (06/20/2022 7:49 PM CDT) Pathologist [facility] Glucose, POC 177 70 - 199 mg/dL [facility] Blood 06/20/2022 7:49 PM CDT 06/20/2022 7:49 PM CDT Catherine Adams MD LAB POCT ORDERABLES - DEVIC E Final Result Performing Organization Address [facility] [place] de Phone Number [facility] [place] [address] * (ABNORMAL) eGFR (06/20/2022 7:46 PM CDT) eGFR 18(L) 90 - 130 mL/min/1. 73 m2 [facility] Comment: Interpretive Data Reference Interval Normal [...] 06/20/2022 8:15 PM CDT us Marcelina Lo OPTICAL INSTRUMENT INSPECTOR LAB BLOOD ORDERABLES Final Re sult Performing Organization Address [facility] [place] Co de Phone Number [facility] [place] [address] * Lactate (06/20/2022 7:46 PM CDT) Lactate 1.0 0.7 - 2.0 mmol/L [facility] Blood 06/20/2022 7:46 PM CDT 06/20/2022 8:14 PM CDT Catherine Adams MD LAB BLOOD ORDERABLES Final Result Performing Organization Address [facility] [place] de Phone Number [facility] [place] [address] * (ABNORMAL) Triglycerides (06/20/2022 7:46 PM CDT) Triglycerides 181(H) <=149 mg/dL [facility] Comment: Interpretive Data Ages < or [...] PM CDT 06/20/2022 8:14 PM CDT Narrative [facility] - 06/20/2022 8:51 PM CDT While on propofol infusion. us Catherine Adams MD LAB BLOOD ORDERABLES Final Result Performing Organization Address [facility] [place] de Phone Number [facility] [place] [address] * Phosphorus (06/20/2022 7:46 PM CDT) Phosphorus, pl 2.9 2.3 - 4.5 mg/dL [facility] Comment:Repeated and Verifie d Blood 06/20/2022 7:46 PM CDT 06/20/2022 8:14 PM CDT us Marcelina Lo NP LAB BLOOD ORDERABLES Final Re sult Performing Organization Address [facility] [place] Co de Phone Number [facility] [place] [address] * (ABNORMAL) Beta-hydroxybutyrate (06/20/2022 7:46 PM CDT) Beta-Hydroxybut yrate 2.5(H) 0.0 - 0.5 mmol/L [facility] Blood 06/20/2022 7:46 PM CDT 06/20/2022 8:59 PM CDT Marcelina Lo OPTICAL INSTRUMENT INSPECTOR LAB BLOOD ORDERABLES Final Re sult Performing Organization Address City/[facility] Co de Phone Number [facility] [place] [address] * Lipase (06/20/2022 7:46 PM CDT) Pathologist [facility] Lipase 88 10 - 99 Units/L [facility] Blood 06/20/2022 7:46 PM CDT 06/20/2022 8:14 PM CDT Marcelina Lo OPTICAL INSTRUMENT INSPECTOR LAB BLOOD ORDERABLES Final Re sult Performing Organization Address [facility] [place] Co de Phone Number [facility] [place] [address] * (ABNORMAL) Magnesium (06/20/2022 7:46 PM CDT) [facility] Magnesium 2.6(H) 1.4 - 2.5 mg/dL [facility] Blood 06/20/2022 7:46 PM CDT 06/20/2022 8:15 PM CDT Marcelina Lo OPTICAL INSTRUMENT INSPECTOR LAB BLOOD ORDERABLES Final Re sult Performing Organization Address [facility] [place] Co de Phone Number [facility] [place] [address] * (ABNORMAL) Comprehensive metabolic panel (06/20/2022 7:46 PM CDT) [facility] Sodium 137 135 - 145 mmol/L [facility] Potassium, pl 4.9 3.3 - 4.9 mmol/L [facility] Chloride 102 97 - 110 mmol/L [facility] CO2 23 22 - 32 mmol/L [facility] Anion gap 12 2 - 15 mmol/L [facility] BUN 26(H) 8 - 25 mg/dL [facility] Creatinine 3.87(H) 0.80 - 1.30 mg/dL [facility] Glucose 188 70 - 199 mg/dL [facility] Comment: Interpretive Data Fasting glucose >/= [...] 2017. Calcium 8.5 8.5 - 10.3 mg/dL [facility] Bilirubin, total 0.6 0.1 - 1.2 mg/dL [facility] Protein, pl 5.7(L) 6.5 - 8.5 g/dL [facility] Albumin 2.7(L) 3.5 - 5.0 g/dL [facility] Alk phos 123 40 - 130 Units/L [facility] ALT 29 7 - 55 Units/L [facility] AST 61(H) 10 - 50 Units/L [facility] Blood 06/20/2022 7:46 PM CDT 06/20/2022 8:15 PM CDT us Marcelina Lo OPTICAL INSTRUMENT INSPECTOR LAB BLOOD ORDERABLES Final Re sult [facility] [place] [address] * (ABNORMAL) Differential, auto (06/20/2022 6:18 PM CDT) Neutrophil abs 6.2 1.7 - 6.5 K/cumm [facility] Imm gran abs 0.1 0.0 - 0.1 K/cumm [facility] Lymphocyte abs 0.9 0.8 - 3.3 K/cumm [facility] Monocyte abs 1.1(H) 0.2 - 0.8 K/cumm [facility] Eosinophil abs 0.0 0.0 - 0.5 K/cumm [facility] Basophil abs 0.0 0.0 - 0.1 K/cumm [facility] Neutrophil pct 74.5 % [facility] Comment: Interpretive Data Percent cell count reference ranges are not reported, since discordance with absolute values may lead to misinterpretation of CBC data. Current Interpretive Data was last revised on 2017. Imm gran pct 0.7 % [facility] Comment: Interpretive Data Percent cell count reference ranges are not reported, since discordance with absolute values may lead to misinterpretation of CBC data. Current Interpretive Data was last revised on 2017. Lymphocyte pct 11.0 % [facility] Comment: Interpretive Data Percent cell count reference ranges are not reported, since discordance with absolute values may lead to misinterpretation of CBC data. Current Interpretive Data was last revised on 2017. Monocyte pct 12.8 % [facility] Comment: Interpretive Data Percent cell count reference ranges are not reported, since discordance with absolute values may lead to misinterpretation of CBC data. Current Interpretive Data was last revised on 2017. Eosinophil pct 0.5 % [facility] Comment: Interpretive Data Percent cell count reference ranges are not reported, since discordance with absolute values may lead to misinterpretation of CBC data. Current Interpretive Data was last revised on 2017. Basophil pct 0.5 % [facility] Comment: Interpretive Data Percent cell count reference ranges are not reported, since discordance with absolute values may lead to misinterpretation of CBC data. Current Interpretive Data was last revised on 2017. Blood 06/20/2022 6:18 PM CDT 06/20/2022 7:08 PM CDT us Tyra De La Torre MD LAB BLOOD ORDERABLES Final Resu lt [facility] [place] [address] * (ABNORMAL) CBC with auto differential (06/20/2022 6:18 PM CDT) WBC 8.3 3.8 - 9.9 K/cumm [facility] Hgb 7.7(L) 13.0 - 17.5 g/dL [facility] Hct 23.7(L) 38.9 - 50.3 % [facility] Plt 188 150 - 400 K/cumm [facility] MPV 9.8 9.1 - 12.3 fL [facility] RBC 2.55(L) 4.30 - 5.80 M/cumm [facility] MCV 92.9 81.3 - 96.4 fL [facility] MCH 30.2 27.1 - 33.3 pg [facility] MCHC 32.5 32.3 - 35.7 g/dL [facility] RDW CV 20.1(H) 11.1 - 14.9 % [facility] RDW SD 64.8(H) 35.7 - 48.1 fL [facility] NRBC abs 0.04(H) 0.00 - 0.01 K/cumm [facility] Blood 06/20/2022 6:18 PM CDT 06/20/2022 7:08 PM CDT us Tyra De La Torre MD LAB BLOOD ORDERABLES Final Resu lt [facility] [place] [address] * POCT glucose (06/20/2022 3:53 PM CDT) [facility] Signature Glucose, POC 124 70 - 199 mg/dL [facility] Blood 06/20/2022 3:5 3 PM CDT 06/20/2022 3:53 PM CDT us Catherine Adams MD LAB POCT ORDERABLES - DEVIC E Final Result [facility] [place] [address] * (ABNORMAL) Differential, auto (06/20/2022 3:22 PM CDT) Neutrophil abs 4.7 1.7 - 6.5 K/cumm [facility] Imm gran abs 0.1 0.0 - 0.1 K/cumm [facility] Lymphocyte abs 1.4 0.8 - 3.3 K/cumm [facility] Monocyte abs 1.0(H) 0.2 - 0.8 K/cumm [facility] Eosinophil abs 0.0 0.0 - 0.5 K/cumm [facility] Basophil abs 0.1 0.0 - 0.1 K/cumm [facility] Neutrophil pct 64.5 % [facility] Comment: Interpretive Data Percent cell count reference ranges are not reported, since discordance with absolute values may lead to misinterpretation of CBC data. Current Interpretive Data was last revised on 2017. Imm gran pct 0.7 % [facility] Comment: Interpretive Data Percent cell count reference ranges are not reported, since discordance with absolute values may lead to misinterpretation of CBC data. Current Interpretive Data was last revised on 2017. Lymphocyte pct 19.4 % [facility] Comment: Interpretive Data Percent cell count reference ranges are not reported, since discordance with absolute values may lead to misinterpretation of CBC data. Current Interpretive Data was last revised on 2017. Monocyte pct 14.1 % [facility] Comment: Interpretive Data Percent cell count reference ranges are not reported, since discordance with absolute values may lead to misinterpretation of CBC data. Current Interpretive Data was last revised on 2017. Eosinophil pct 0.6 % [facility] Comment: Interpretive Data Percent cell count reference ranges are not reported, since discordance with absolute values may lead to misinterpretation of CBC data. Current Interpretive Data was last revised on 2017. Basophil pct 0.7 % [facility] Comment: Interpretive Data Percent cell count reference ranges are not reported, since discordance with absolute values may lead to misinterpretation of CBC data. Current Interpretive Data was last revised on 2017. Blood 06/20/2022 3:22 PM CDT 06/20/2022 3:55 PM CDT Catherine Adams MD LAB BLOOD ORDERABLES Final Result [facility] [place] [address] * (ABNORMAL) CBC with auto differential (06/20/2022 3:22 PM CDT) WBC 7.2 3.8 - 9.9 K/cumm [facility] Hgb 8.0(L) 13.0 - 17.5 g/dL [facility] Hct 24.5(L) 38.9 - 50.3 % [facility] Plt 207 150 - 400 K/cumm [facility] MPV 9.8 9.1 - 12.3 fL [facility] RBC 2.67(L) 4.30 - 5.80 M/cumm [facility] MCV 91.8 81.3 - 96.4 fL [facility] Comment:MCV delta due to zoie arent blood transfusion. MCH 30.0 27.1 - 33.3 pg [facility] MCHC 32.7 32.3 - 35.7 g/dL [facility] RDW CV 19.9(H) 11.1 - 14.9 % [facility] RDW SD 63.6(H) 35.7 - 48.1 fL [facility] NRBC abs 0.03(H) 0.00 - 0.01 K/cumm [facility] Blood 06/20/2022 3:22 PM CDT 06/20/2022 3:55 PM CDT Catherine Adams MD LAB BLOOD ORDERABLES Final Result [facility] [place] [address] * CT Chest Abdomen Pelvis WO Contrast [...] ORDERABLE S Final Result Performing Organization Address [facility] [place] Co de Phone Number [facility] [place] [address] * Transfuse RBC: 1 Units (06/20/2022 12:05 PM CDT) Blood us Catherine Adams MD BLOOD TRANSFUSION ORDERABLE S Final Result * Prepare RBC: 1 Units (06/20/2022 9:35 AM CDT) Product code [id number] [facility] Unit Number [id number] 3-* [facility] Product Blood Type APOS [facility] Dispense Status RETURNED [facility] Blood 06/20/2022 9:35 AM CDT 06/20/2022 9:34 AM CDT Narrative [facility] - 06/20/2022 1:20 PM CDT Are special requirements needed? (All products are leukoreduced and CMV- safe)- >No Date required:-20220620 LRRBC # of [id number] Reasons:-Hgb <7 g/dL} us Catherine Adams MD BLOOD BANK PRODUCT ORDERABL ES Final Result Performing Organization Address [facility] [place] Co de Phone Number [facility] [place] [address] * (ABNORMAL) eGFR (06/20/2022 8:24 AM CDT) [...] 06/20/2022 8:48 AM CDT us Marcelina Lo OPTICAL INSTRUMENT INSPECTOR LAB BLOOD ORDERABLES Final Re sult [facility] [place] [address] * (ABNORMAL) Differential, auto (06/20/2022 8:24 AM CDT) [facility] Neutrophil abs 5.1 1.7 - 6.5 K/cumm [facility] Imm gran abs 0.1 0.0 - 0.1 K/cumm [facility] Lymphocyte abs 1.6 0.8 - 3.3 K/cumm [facility] Monocyte abs 1.3(H) 0.2 - 0.8 K/cumm [facility] Eosinophil abs 0.1 0.0 - 0.5 K/cumm [facility] Basophil abs 0.1 0.0 - 0.1 K/cumm [facility] Neutrophil pct 62.3 % [facility] Comment: Interpretive Data Percent cell count reference ranges are not reported, since discordance with absolute values may lead to misinterpretation of CBC data. Current Interpretive Data was last revised on 2017. Imm gran pct 0.7 % [facility] Comment: Interpretive Data Percent cell count reference ranges are not reported, since discordance with absolute values may lead to misinterpretation of CBC data. Current Interpretive Data was last revised on 2017. Lymphocyte pct 19.9 % [facility] Comment: Interpretive Data Percent cell count reference ranges are not reported, since discordance with absolute values may lead to misinterpretation of CBC data. Current Interpretive Data was last revised on 2017. Monocyte pct 15.9 % [facility] Comment: Interpretive Data Percent cell count reference ranges are not reported, since discordance with absolute values may lead to misinterpretation of CBC data. Current Interpretive Data was last revised on 2017. Eosinophil pct 0.6 % [facility] Comment: Interpretive Data Percent cell count reference ranges are not reported, since discordance with absolute values may lead to misinterpretation of CBC data. Current Interpretive Data was last revised on 2017. Basophil pct 0.6 % [facility] Comment: Interpretive Data Percent cell count reference ranges are not reported, since discordance with absolute values may lead to misinterpretation of CBC data. Current Interpretive Data was last revised on 2017. Blood 06/20/2022 8:24 AM CDT 06/20/2022 8:48 AM CDT Catherine Adams MD LAB BLOOD ORDERABLES Final Result [facility] [place] [address] * (ABNORMAL) CBC with auto differential (06/20/2022 8:24 AM CDT) WBC 8.3 3.8 - 9.9 K/cumm [facility] Hgb 6.6(L) 13.0 - 17.5 g/dL [facility] Hct 20.7(L) 38.9 - 50.3 % [facility] Plt 271 150 - 400 K/cumm [facility] MPV 9.6 9.1 - 12.3 fL [facility] RBC 2.12(L) 4.30 - 5.80 M/cumm [facility] MCV 97.6(H) 81.3 - 96.4 fL [facility] MCH 31.1 27.1 - 33.3 pg [facility] MCHC 31.9(L) 32.3 - 35.7 g/dL [facility] RDW CV 17.4(H) 11.1 - 14.9 % [facility] RDW SD 59.6(H) 35.7 - 48.1 fL [facility] NRBC abs 0.00 0.00 - 0.01 K/cumm [facility] Blood 06/20/2022 8:24 AM CDT 06/20/2022 8:48 AM CDT Catherine Adams MD LAB BLOOD ORDERABLES Final Result [facility] [place] [address] * (ABNORMAL) Magnesium (06/20/2022 8:24 AM CDT) Magnesium 2.7(H) 1.4 - 2.5 mg/dL [facility] Blood 06/20/2022 8:24 AM CDT 06/20/2022 8:48 AM CDT us Marcelina Lo NP LAB BLOOD ORDERABLES Final Re sult [facility] [place] [address] * (ABNORMAL) Comprehensive metabolic panel (06/20/2022 8:24 AM CDT) Sodium 140 135 - 145 mmol/L [facility] Potassium, pl 4.9 3.3 - 4.9 mmol/L [facility] Chloride 104 97 - 110 mmol/L [facility] CO2 25 22 - 32 mmol/L [facility] Anion gap 11 2 - 15 mmol/L [facility] BUN 25 8 - 25 mg/dL [facility] Creatinine 3.43(H) 0.80 - 1.30 mg/dL [facility] Glucose 144 70 - 199 mg/dL [facility] Comment: Interpretive Data Fasting glucose >/= [...] 2017. Calcium 8.4(L) 8.5 - 10.3 mg/dL [facility] Bilirubin, total 0.6 0.1 - 1.2 mg/dL [facility] Protein, pl 6.2(L) 6.5 - 8.5 g/dL [facility] Albumin 2.8(L) 3.5 - 5.0 g/dL [facility] Alk phos 143(H) 40 - 130 Units/L [facility] ALT 35 7 - 55 Units/L [facility] AST 79(H) 10 - 50 Units/L [facility] Blood 06/20/2022 8:24 AM CDT 06/20/2022 8:48 AM CDT us Marcelina Lo OPTICAL INSTRUMENT INSPECTOR LAB BLOOD ORDERABLES Final Re sult Performing Organization Address [facility] [place] Co de Phone Number [facility] [place] [address] * POCT glucose (06/20/2022 8:21 AM CDT) Glucose, POC 152 70 - 199 mg/dL [facility] Blood 06/20/2022 8:21 AM CDT 06/20/2022 8:21 AM CDT Catherine Adams MD LAB POCT ORDERABLES - DEVIC E Final Result Performing Organization Address [facility] [place] de Phone Number [facility] [place] [address] * Transfuse RBC (06/20/2022 6:12 AM CDT) Blood Catherine Adams MD BLOOD TRANSFUSION ORDERABLE S Final Result Performing Organization Address [facility] [place] de Phone Number [facility] [place] [address] * Transfuse RBC: 1 Units (06/20/2022 6:12 AM CDT) Blood Catherine Adams MD BLOOD TRANSFUSION ORDERABLE S Final Result * POCT glucose (06/20/2022 4:57 AM CDT) Glucose, POC 174 70 - 199 mg/dL [facility] Blood 06/20/2022 4:57 AM CDT 06/20/2022 4:57 AM CDT us Catherine Adams MD LAB POCT ORDERABLES - DEVIC E Final Result Performing Organization Address City/[facility]/ZIP Co de Phone Number [facility] [place] [address] * (ABNORMAL) Hemoglobin and hematocrit (06/20/2022 12:25 AM CDT) Pathologist [facility] Hgb 6.2(C) 13.0 - 17.5 g/dL [facility] Comment:Consistent with prev ious results Hct 19.8(L) 38.9 - 50.3 % [facility] Blood 06/20/2022 12:2 5 AM CDT 06/20/2022 12:37 AM CDT Meme Castro MD LAB BLOOD ORDERABLES Final Result Performing Organization Address [facility] [place] Co de Phone Number [facility] [place] [address] * Type and screen (06/20/2022 12:23 AM CDT) [facility] Maribel, indirect Negative [facility] ABO Rh A Positive [facility] Blood 06/20/2022 12:2 3 AM CDT 06/20/2022 1:33 AM CDT Narrative [facility] - 06/20/2022 3:08 AM CDT Has the patient had Daratumumab or Isatuximab in the past 6 months?->Unknown Catherine Adams MD LAB BLOOD BANK TEST ORDERAB LES Final Result Performing Organization Address [facility] [place]/[facility]/ZIP Co de Phone Number [facility] [place] [address] * Prepare RBC: 1 Units (06/20/2022 12:15 AM CDT) [facility] Product code [id number] [facility] Unit Number [id number] [facility] Product Blood Type APOS [facility] Dispense Status PRESUMED TRANSFUSED [facility] Blood 06/20/2022 12:1 5 AM CDT 06/20/2022 12:16 AM CDT Narrative [facility] - 06/21/2022 12:50 AM CDT Are special requirements needed? (All products are leukoreduced and CMV- safe)- >No Date required:-20220620 LRRBC # of [id number] Reasons:-Hgb <7 g/dL} Catherine Adams MD BLOOD BANK PRODUCT ORDERABL ES Final Result Performing Organization Address [facility] [place] de Phone Number [facility] [place] [address] * (ABNORMAL) POCT glucose (06/20/2022 12:01 AM CDT) Glucose, POC 206(H) 70 - 199 mg/dL [facility] Blood 06/20/2022 12:0 1 AM CDT 06/20/2022 12:01 AM CDT Result [facility] Catherine Adams MD LAB POCT ORDERABLES - DEVIC E Final Result Performing Organization Address [facility] de Phone Number [facility] [place] [address] * (ABNORMAL) Hemoglobin and hematocrit (06/19/2022 11:25 PM CDT) Hgb 6.2(C) 13.0 - 17.5 g/dL [facility] Comment:Critical result call ed to and read back by WON SHELBY RN on 06 20 2022 at 0010 to Precious Restrepo. Hct 19.5(L) 38.9 - 50.3 % [facility] Blood 06/19/2022 11:2 5 PM CDT 06/19/2022 11:42 PM CDT Meme Castro MD LAB BLOOD ORDERABLES Final Result Performing Organization Address [facility] [place]/ZIP Co de Phone Number [facility] [place] [address] * POCT glucose (06/19/2022 8:55 PM CDT) [facility] Glucose, POC 161 70 - 199 mg/dL [facility] Blood 06/19/2022 8:55 PM CDT 06/19/2022 8:55 PM CDT us Catherine Adams MD LAB POCT ORDERABLES - DEVIC E Final Result Performing Organization Address [facility] [place] de Phone Number [facility] [place] [address] * (ABNORMAL) eGFR (06/19/2022 8:54 PM CDT) [facility] eGFR 16(L) 90 - 130 mL/min/1. 73 m2 [facility] Comment: Interpretive Data Reference Interval Normal [...] PM CDT 06/19/2022 9:22 PM CDT us Marceilna Lo OPTICAL INSTRUMENT INSPECTOR LAB BLOOD ORDERABLES Final Re sult [facility] [place] [address] * (ABNORMAL) Differential, auto (06/19/2022 8:54 PM CDT) Neutrophil abs 5.0 1.7 - 6.5 K/cumm [facility] Imm gran abs 0.1 0.0 - 0.1 K/cumm [facility] Lymphocyte abs 2.1 0.8 - 3.3 K/cumm [facility] Monocyte abs 1.2(H) 0.2 - 0.8 K/cumm [facility] Eosinophil abs 0.1 0.0 - 0.5 K/cumm [facility] Basophil abs 0.1 0.0 - 0.1 K/cumm [facility] Neutrophil pct 59.1 % [facility] Comment: Interpretive Data Percent cell count reference ranges are not reported, since discordance with absolute values may lead to misinterpretation of CBC data. Current Interpretive Data was last revised on 2017. Imm gran pct 0.7 % [facility] Comment: Interpretive Data Percent cell count reference ranges are not reported, since discordance with absolute values may lead to misinterpretation of CBC data. Current Interpretive Data was last revised on 2017. Lymphocyte pct 24.4 % [facility] Comment: Interpretive Data Percent cell count reference ranges are not reported, since discordance with absolute values may lead to misinterpretation of CBC data. Current Interpretive Data was last revised on 2017. Monocyte pct 13.7 % [facility] Comment: Interpretive Data Percent cell count reference ranges are not reported, since discordance with absolute values may lead to misinterpretation of CBC data. Current Interpretive Data was last revised on 2017. Eosinophil pct 1.3 % [facility] Comment: Interpretive Data Percent cell count reference ranges are not reported, since discordance with absolute values may lead to misinterpretation of CBC data. Current Interpretive Data was last revised on 2017. Basophil pct 0.8 % [facility] Comment: Interpretive Data Percent cell count reference ranges are not reported, since discordance with absolute values may lead to misinterpretation of CBC data. Current Interpretive Data was last revised on 2017. Blood 06/19/2022 8:54 PM CDT 06/19/2022 9:17 PM CDT Marcelina Lo OPTICAL INSTRUMENT INSPECTOR LAB BLOOD ORDERABLES Final Re sult Performing Organization Address [facility] [place] Co de Phone Number [facility] [place] [address] * (ABNORMAL) Blood gas, arterial (06/19/2022 8:54 PM CDT) pH, Art 7.45 7.35 - 7.45 [facility] PCO2, Arterial 32(L) 35 - 45 mmHg [facility] PO2, Arterial 75(L) 83 - 108 mmHg [facility] HCO3 Art (Calculated) 23 20 - 30 mmol/L [facility] BE, art -1 mmol/L [facility] Comment: Interpretive Data No Reference Range Established Current Interpretive Data was last revised on 2017 O2 Sat Art (Measured) 95 90 - 95 % [facility] Blood 06/19/2022 8:54 PM CDT 06/19/2022 9:17 PM CDT Marcelina Lo OPTICAL INSTRUMENT INSPECTOR LAB BLOOD ORDERABLES Final Re sult Performing Organization Address [facility] [place]/[facility] Co de Phone Number [facility] [place] [address] * aPTT (06/19/2022 8:54 PM CDT) Pathologist [facility] aPTT 37 27 - 37 sec [facility] Comment: Interpretive Data Therapeutic heparin range: 60.0 - 94.0 seconds. Based on correlation with therapeutic heparin activity range of 0.3-0.7 Units/mL. Current interpretive data was last revised on 2020. Blood 06/19/2022 8:54 PM CDT 06/19/2022 9:30 PM CDT Narrative [facility] - 06/19/2022 9:38 PM CDT Draw STAT [...] BLOOD ORDERABLES Final Result Performing Organization Address City/[facility] Co de Phone Number [facility] [place] [address] * Lactate (06/19/2022 8:54 PM CDT) Lactate 1.3 0.7 - 2.0 mmol/L [facility] Blood 06/19/2022 8:54 PM CDT 06/19/2022 9:22 PM CDT Catherine Adams MD LAB BLOOD ORDERABLES Final Result Performing Organization Address City/[facility]/ZIP Co de Phone Number [facility] [place] [address] * (ABNORMAL) Beta-hydroxybutyrate (06/19/2022 8:54 PM CDT) Beta-Hydroxybut yrate 0.7(H) 0.0 - 0.5 mmol/L [facility] Blood 06/19/2022 8:54 PM CDT 06/19/2022 9:17 PM CDT Marcelina D. Lo OPTICAL INSTRUMENT INSPECTOR LAB BLOOD ORDERABLES Final Re sult Performing Organization Address City/[facility]/ZIP Co de Phone Number [facility] [place] [address] * (ABNORMAL) Magnesium (06/19/2022 8:54 PM CDT) Pathologist [facility] Magnesium 2.7(H) 1.4 - 2.5 mg/dL [facility] Blood 06/19/2022 8:54 PM CDT 06/19/2022 9:22 PM CDT Marcelina Lo OPTICAL INSTRUMENT INSPECTOR LAB BLOOD ORDERABLES Final Re sult Performing Organization Address [facility] [place]/[facility] Co de Phone Number [facility] [place] [address] * (ABNORMAL) Comprehensive metabolic panel (06/19/2022 8:54 PM CDT) [facility] Sodium 140 135 - 145 mmol/L [facility] Potassium, pl 4.8 3.3 - 4.9 mmol/L [facility] Chloride 102 97 - 110 mmol/L [facility] CO2 25 22 - 32 mmol/L [facility] Anion gap 13 2 - 15 mmol/L [facility] BUN 32(H) 8 - 25 mg/dL [facility] Creatinine 4.27(H) 0.80 - 1.30 mg/dL [facility] Glucose 148 70 - 199 mg/dL [facility] Comment: Interpretive Data Fasting glucose >/= [...] 2017. Calcium 8.3(L) 8.5 - 10.3 mg/dL [facility] Bilirubin, total 0.5 0.1 - 1.2 mg/dL [facility] Protein, pl 6.1(L) 6.5 - 8.5 g/dL [facility] Albumin 2.9(L) 3.5 - 5.0 g/dL [facility] Alk phos 150(H) 40 - 130 Units/L [facility] ALT 32 7 - 55 Units/L [facility] AST 61(H) 10 - 50 Units/L [facility] Blood 06/19/2022 8:54 PM CDT 06/19/2022 9:22 PM CDT us Marcelina Lo NP LAB BLOOD ORDERABLES Final Re sult [facility] [place] [address] * (ABNORMAL) CBC with auto differential (06/19/2022 8:54 PM CDT) WBC 8.4 3.8 - 9.9 K/cumm [facility] Hgb 6.8(L) 13.0 - 17.5 g/dL [facility] Comment:No apparent cause fo r delta. called ashley sandoval MD Hct 20.5(L) 38.9 - 50.3 % [facility] Plt 255 150 - 400 K/cumm [facility] MPV 9.6 9.1 - 12.3 fL [facility] RBC 2.15(L) 4.30 - 5.80 M/cumm [facility] MCV 95.3 81.3 - 96.4 fL [facility] MCH 31.6 27.1 - 33.3 pg [facility] MCHC 33.2 32.3 - 35.7 g/dL [facility] RDW CV 16.5(H) 11.1 - 14.9 % [facility] RDW SD 55.8(H) 35.7 - 48.1 fL [facility] NRBC abs 0.03(H) 0.00 - 0.01 K/cumm [facility] Blood 06/19/2022 8:54 PM CDT 06/19/2022 9:17 PM CDT us Marcelina Lo OPTICAL INSTRUMENT INSPECTOR LAB BLOOD ORDERABLES Final Re sult Performing Organization Address [facility] [place]/[facility] Co de Phone Number [facility] [place] [address] * (ABNORMAL) POCT glucose (06/19/2022 4:59 PM CDT) Glucose, POC 205(H) 70 - 199 mg/dL [facility] Blood 06/19/2022 4:59 PM CDT 06/19/2022 4:59 PM CDT us Catherine Adams MD LAB POCT ORDERABLES - DEVIC E Final Result Performing Organization Address [facility] [place]/[facility] de Phone Number [facility] [place] [address] * POCT glucose (06/19/2022 1:22 PM CDT) Glucose, POC 101 70 - 199 mg/dL [facility] Blood 06/19/2022 1:22 PM CDT 06/19/2022 1:22 PM CDT us Catherine Adams MD LAB POCT ORDERABLES - DEVIC E Final Result Performing Organization Address [facility] [place]/[facility] Co de Phone Number [facility] [place] [address] * ECG 12 lead (06/19/2022 1:03 PM CDT) Ventricular Rate EKG/Min 126 BPM [facility] Atrial Rate 63 BPM [facility] QRS-Interval (MSEC) 106 ms [facility] QT-Interval (MSEC) 360 ms [facility] QTc 521 ms [facility] R [place] -53 degrees [facility] T [place] 125 degrees [facility] Diagnosis Atrial fibrillation with rapid ventricular response with premature ventricular or aberrantly conducted complexes Left axis deviation Poor precordial R wave progression Anterior infarct , age undetermined ST & T wave abnormality, consider lateral ischemia Abnormal ECG When compared with ECG of 18-JUN-2022 18:40, (unconfirmed) No significant change was found Confirmed by HUDSON SAL M.D ([id number]) on 06/22/2022 10:55:43 AM [facility] 06/19/2022 1:03 PM CDT 06/22/2022 [...] * (ABNORMAL) eGFR (06/19/2022 9:09 AM CDT) [facility] eGFR 13(L) 90 - 130 mL/min/1. 73 m2 [facility] Comment: Interpretive Data Reference Interval Normal [...] 06/19/2022 10:17 AM CDT us Marcelina Lo OPTICAL INSTRUMENT INSPECTOR LAB BLOOD ORDERABLES Final Re sult [facility] [place] [address] * Differential, auto (06/19/2022 9:09 AM CDT) Neutrophil abs 2.8 1.7 - 6.5 K/cumm [facility] Imm gran abs 0.0 0.0 - 0.1 K/cumm [facility] Lymphocyte abs 1.2 0.8 - 3.3 K/cumm [facility] Monocyte abs 0.7 0.2 - 0.8 K/cumm [facility] Eosinophil abs 0.1 0.0 - 0.5 K/cumm [facility] Basophil abs 0.1 0.0 - 0.1 K/cumm [facility] Neutrophil pct 56.1 % [facility] Comment: Interpretive Data Percent cell count reference ranges are not reported, since discordance with absolute values may lead to misinterpretation of CBC data. Current Interpretive Data was last revised on 2017. Imm gran pct 0.8 % [facility] Comment: Interpretive Data Percent cell count reference ranges are not reported, since discordance with absolute values may lead to misinterpretation of CBC data. Current Interpretive Data was last revised on 2017. Lymphocyte pct 24.9 % [facility] Comment: Interpretive Data Percent cell count reference ranges are not reported, since discordance with absolute values may lead to misinterpretation of CBC data. Current Interpretive Data was last revised on 2017. Monocyte pct 14.2 % [facility] Comment: Interpretive Data Percent cell count reference ranges are not reported, since discordance with absolute values may lead to misinterpretation of CBC data. Current Interpretive Data was last revised on 2017. Eosinophil pct 2.8 % [facility] Comment: Interpretive Data Percent cell count reference ranges are not reported, since discordance with absolute values may lead to misinterpretation of CBC data. Current Interpretive Data was last revised on 2017. Basophil pct 1.2 % [facility] Comment: Interpretive Data Percent cell count reference ranges are not reported, since discordance with absolute values may lead to misinterpretation of CBC data. Current Interpretive Data was last revised on 2017. Blood 06/19/2022 9:09 AM CDT 06/19/2022 10:25 AM CDT us Marcelina Lo NP LAB BLOOD ORDERABLES Final Re sult [facility] [place] [address] * (ABNORMAL) Blood gas, arterial (06/19/2022 9:09 AM CDT) pH, Art 7.41 7.35 - 7.45 [facility] PCO2, Arterial 33(L) 35 - 45 mmHg [facility] PO2, Arterial 87 83 - 108 mmHg [facility] HCO3 Art (Calculated) 21 20 - 30 mmol/L [facility] BE, art -4 mmol/L [facility] Comment: Interpretive Data No Reference Range Established Current Interpretive Data was last revised on 2017 O2 Sat Art (Measured) 96(H) 90 - 95 % [facility] Blood 06/19/2022 9:09 AM CDT 06/19/2022 9:18 AM CDT Marcelnia Lo OPTICAL INSTRUMENT INSPECTOR LAB BLOOD ORDERABLES Final Re sult Performing Organization Address [facility] [place]/[facility] Co de Phone Number [facility] [place] [address] * (ABNORMAL) Magnesium (06/19/2022 9:09 AM CDT) Pathologist [facility] Magnesium 2.9(H) 1.4 - 2.5 mg/dL [facility] Blood 06/19/2022 9:09 AM CDT 06/19/2022 10:17 AM CDT Marcelina Lo OPTICAL INSTRUMENT INSPECTOR LAB BLOOD ORDERABLES Final Re sult Performing Organization Address [facility] [place]/[facility] de Phone Number [facility] [place] [address] * (ABNORMAL) Comprehensive metabolic panel (06/19/2022 9:09 AM CDT) [facility] Sodium 137 135 - 145 mmol/L [facility] Potassium, pl 4.6 3.3 - 4.9 mmol/L [facility] Chloride 101 97 - 110 mmol/L [facility] CO2 23 22 - 32 mmol/L [facility] Anion gap 13 2 - 15 mmol/L [facility] BUN 35(H) 8 - 25 mg/dL [facility] Creatinine 5.02(H) 0.80 - 1.30 mg/dL [facility] Glucose 205(H) 70 - 199 mg/dL [facility] Comment: Interpretive Data Fasting glucose >/= [...] 2017. Calcium 8.4(L) 8.5 - 10.3 mg/dL [facility] Bilirubin, total 0.4 0.1 - 1.2 mg/dL [facility] Protein, pl 6.1(L) 6.5 - 8.5 g/dL [facility] Albumin 2.9(L) 3.5 - 5.0 g/dL [facility] Alk phos 156(H) 40 - 130 Units/L [facility] ALT 32 7 - 55 Units/L [facility] AST 54(H) 10 - 50 Units/L [facility] Blood 06/19/2022 9:09 AM CDT 06/19/2022 10:17 AM CDT us Marcelina Lo OPTICAL INSTRUMENT INSPECTOR LAB BLOOD ORDERABLES Final Re sult [facility] [place] [address] * (ABNORMAL) CBC with auto differential (06/19/2022 9:09 AM CDT) WBC 4.9 3.8 - 9.9 K/cumm [facility] Hgb 9.9(L) 13.0 - 17.5 g/dL [facility] Hct 31.5(L) 38.9 - 50.3 % [facility] Plt 237 150 - 400 K/cumm [facility] MPV 9.9 9.1 - 12.3 fL [facility] RBC 3.20(L) 4.30 - 5.80 M/cumm [facility] MCV 98.4(H) 81.3 - 96.4 fL [facility] MCH 30.9 27.1 - 33.3 pg [facility] MCHC 31.4(L) 32.3 - 35.7 g/dL [facility] RDW CV 16.4(H) 11.1 - 14.9 % [facility] RDW SD 57.2(H) 35.7 - 48.1 fL [facility] NRBC abs 0.00 0.00 - 0.01 K/cumm [facility] Blood 06/19/2022 9:09 AM CDT 06/19/2022 10:25 AM CDT us Marcelina Lo OPTICAL INSTRUMENT INSPECTOR LAB BLOOD ORDERABLES Final Re sult Performing Organization Address City/[facility] Co de Phone Number [facility] [place] [address] * (ABNORMAL) POCT glucose (06/19/2022 9:08 AM CDT) [facility] Signature Glucose, POC 217(H) 70 - 199 mg/dL [facility] Blood 06/19/2022 9:08 AM CDT 06/19/2022 9:08 AM CDT us Catherine Adams MD LAB POCT ORDERABLES - DEVIC E Final Result Performing Organization Address [facility] [place]/[facility] Co de Phone Number [facility] [place] [address] * XR Chest 1 View (06/19/2022 5:51 AM CDT) Anatomical Region Laterality Modality Body, Chest N/A Computed Radiogr aphy 06/19/2022 7:34 AM CDT Impressions 06/19/2022 7:34 AM CDT Comparison made to 06/18/2022. ??Right internal jugular catheter tip overlies the superior vena cava. ??Nasogastric tube tip located below diaphragm, not included on the [id number]. ??A tracheal tube tip located within the [...] located below diaphragm, not included on the [id number]. A tracheal tube tip located within the [...] 13(L) 90 - 130 mL/min/1. 73 m2 [facility] Comment: Interpretive Data Reference Interval Normal [...] CDT 06/18/2022 11:02 PM CDT Marcelina Lo OPTICAL INSTRUMENT INSPECTOR LAB BLOOD ORDERABLES Final Re sult Performing Organization Address [facility] [place]/[facility] Co de Phone Number [facility] [place] [address] * Vancomycin level random (06/18/2022 10:50 PM CDT) Pathologist [facility] Vancomycin random 38.4 mcg/mL [facility] Comment: Interpretive Data No reference ranges have been established for random drug levels. Current Interpretive Data was last revised on 2020. Blood 06/18/2022 10:5 0 PM CDT 06/18/2022 10:59 PM CDT Catherine Adams MD LAB BLOOD ORDERABLES Final Result Performing Organization Address [facility] [place]/[facility] de Phone Number [facility] [place] [address] * (ABNORMAL) Differential, auto (06/18/2022 10:50 PM CDT) [facility] Neutrophil abs 5.0 1.7 - 6.5 K/cumm [facility] Imm gran abs 0.1 0.0 - 0.1 K/cumm [facility] Lymphocyte abs 1.7 0.8 - 3.3 K/cumm [facility] Monocyte abs 1.3(H) 0.2 - 0.8 K/cumm [facility] Eosinophil abs 0.2 0.0 - 0.5 K/cumm [facility] Basophil abs 0.1 0.0 - 0.1 K/cumm [facility] Neutrophil pct 60.3 % [facility] Comment: Interpretive Data Percent cell count reference ranges are not reported, since discordance with absolute values may lead to misinterpretation of CBC data. Current Interpretive Data was last revised on 2017. Imm gran pct 0.7 % [facility] Comment: Interpretive Data Percent cell count reference ranges are not reported, since discordance with absolute values may lead to misinterpretation of CBC data. Current Interpretive Data was last revised on 2017. Lymphocyte pct 20.4 % [facility] Comment: Interpretive Data Percent cell count reference ranges are not reported, since discordance with absolute values may lead to misinterpretation of CBC data. Current Interpretive Data was last revised on 2017. Monocyte pct 16.0 % [facility] Comment: Interpretive Data Percent cell count reference ranges are not reported, since discordance with absolute values may lead to misinterpretation of CBC data. Current Interpretive Data was last revised on 2017. Eosinophil pct 2.0 % [facility] Comment: Interpretive Data Percent cell count reference ranges are not reported, since discordance with absolute values may lead to misinterpretation of CBC data. Current Interpretive Data was last revised on 2017. Basophil pct 0.6 % [facility] Comment: Interpretive Data Percent cell count reference ranges are not reported, since discordance with absolute values may lead to misinterpretation of CBC data. Current Interpretive Data was last revised on 2017. Blood 06/18/2022 10:5 0 PM CDT 06/18/2022 10:59 PM CDT us Marcelina Lo OPTICAL INSTRUMENT INSPECTOR LAB BLOOD ORDERABLES Final Re sult [facility] [place] [address] * Lactate (06/18/2022 10:50 PM CDT) Lactate 1.0 0.7 - 2.0 mmol/L [facility] Blood 06/18/2022 10:5 0 PM CDT 06/18/2022 11:02 PM CDT us Catherine Adams MD LAB BLOOD ORDERABLES Final Result [facility] [place] [address] * (ABNORMAL) Triglycerides (06/18/2022 10:50 PM CDT) Triglycerides 226(H) <=149 mg/dL [facility] Comment: Interpretive Data Ages < or [...] PM CDT 06/18/2022 10:59 PM CDT Narrative [facility] - 06/18/2022 11:57 PM CDT While on propofol infusion. us Catherine Adams MD LAB BLOOD ORDERABLES Final Result [facility] [place] [address] * (ABNORMAL) Phosphorus (06/18/2022 10:50 PM CDT) Phosphorus, pl 5.2(H) 2.3 - 4.5 mg/dL [facility] Blood 06/18/2022 10:5 0 PM CDT 06/18/2022 10:59 PM CDT Marcelina Lo OPTICAL INSTRUMENT INSPECTOR LAB BLOOD ORDERABLES Final Re sult Performing Organization Address [facility] [place]/[facility] de Phone Number [facility] [place] [address] * (ABNORMAL) Beta-hydroxybutyrate (06/18/2022 10:50 PM CDT) Beta-Hydroxybut yrate 1.3(H) 0.0 - 0.5 mmol/L [facility] Blood 06/18/2022 10:5 0 PM CDT 06/18/2022 10:59 PM CDT Marcelina Lo OPTICAL INSTRUMENT INSPECTOR LAB BLOOD ORDERABLES Final Re sult Performing Organization Address [facility] [place]/[facility] de Phone Number [facility] [place] [address] * Lipase (06/18/2022 10:50 PM CDT) Lipase 22 10 - 99 Units/L [facility] Blood 06/18/2022 10:5 0 PM CDT 06/18/2022 10:59 PM CDT Marcelina Lo OPTICAL INSTRUMENT INSPECTOR LAB BLOOD ORDERABLES Final Re sult Performing Organization Address [facility] [place]/[facility] de Phone Number [facility] [place] [address] * (ABNORMAL) Magnesium (06/18/2022 10:50 PM CDT) Magnesium 3.1(H) 1.4 - 2.5 mg/dL [facility] Blood 06/18/2022 10:5 0 PM CDT 06/18/2022 11:02 PM CDT us Marcelina Lo OPTICAL INSTRUMENT INSPECTOR LAB BLOOD ORDERABLES Final Re sult [facility] [place] [address] * (ABNORMAL) Comprehensive metabolic panel (06/18/2022 10:50 PM CDT) Sodium 140 135 - 145 mmol/L [facility] Potassium, pl 4.3 3.3 - 4.9 mmol/L [facility] Chloride 103 97 - 110 mmol/L [facility] CO2 22 22 - 32 mmol/L [facility] Anion gap 15 2 - 15 mmol/L [facility] BUN 35(H) 8 - 25 mg/dL [facility] Creatinine 5.01(H) 0.80 - 1.30 mg/dL [facility] Glucose 199 70 - 199 mg/dL [facility] Comment: Interpretive Data Fasting glucose >/= [...] Calcium 8.7 8.5 - 10.3 mg/dL [facility] Bilirubin, total 0.4 0.1 - 1.2 mg/dL [facility] Protein, pl 6.5 6.5 - 8.5 g/dL [facility] Albumin 2.8(L) 3.5 - 5.0 g/dL [facility] Alk phos 163(H) 40 - 130 Units/L [facility] ALT 34 7 - 55 Units/L [facility] AST 56(H) 10 - 50 Units/L [facility] Blood 06/18/2022 10:5 0 PM CDT 06/18/2022 11:02 PM CDT us Marcelina Lo OPTICAL INSTRUMENT INSPECTOR LAB BLOOD ORDERABLES Final Re sult Performing Organization Address City/[facility]/ZIP Co de Phone Number [facility] [place] [address] * (ABNORMAL) CBC with auto differential (06/18/2022 10:50 PM CDT) [facility] WBC 8.4 3.8 - 9.9 K/cumm [facility] Hgb 7.5(L) 13.0 - 17.5 g/dL [facility] Hct 23.6(L) 38.9 - 50.3 % [facility] Plt 313 150 - 400 K/cumm [facility] MPV 9.8 9.1 - 12.3 fL [facility] RBC 2.41(L) 4.30 - 5.80 M/cumm [facility] MCV 97.9(H) 81.3 - 96.4 fL [facility] MCH 31.1 27.1 - 33.3 pg [facility] MCHC 31.8(L) 32.3 - 35.7 g/dL [facility] RDW CV 16.5(H) 11.1 - 14.9 % [facility] RDW SD 56.5(H) 35.7 - 48.1 fL [facility] NRBC abs 0.00 0.00 - 0.01 K/cumm [facility] Blood 06/18/2022 10:5 0 PM CDT 06/18/2022 10:59 PM CDT us Marcelina Lo OPTICAL INSTRUMENT INSPECTOR LAB BLOOD ORDERABLES Final Re sult [facility] [place] [address] * (ABNORMAL) POCT glucose (06/18/2022 7:51 PM CDT) Pathologist [facility] Glucose, POC 256(H) 70 - 199 mg/dL [facility] Blood 06/18/2022 7:51 PM CDT 06/18/2022 7:51 PM CDT Catherine Adams MD LAB POCT ORDERABLES - DEVIC E Final Result Performing Organization Address [facility] [place]/[facility] Co de Phone Number [facility] [place] [address] * ECG 12 lead (06/18/2022 6:40 PM CDT) Ventricular Rate EKG/Min 133 BPM [facility] Atrial Rate 147 BPM [facility] QRS-Interval (MSEC) 102 ms [facility] QT-Interval (MSEC) 332 ms [facility] QTc 494 ms [facility] R [place] -43 degrees [facility] T [place] 123 degrees [facility] Diagnosis Atrial fibrillation with rapid [...] anyterior leads Confirmed by KENN BILLINGSLEY M.D ([id number]) on 06/21/2022 1:28:53 PM [facility] 06/18/2022 6:40 PM CDT 06/21/2022 1:28 PM CDT Conrad Weston Chi, MD ECG ORDERABLES Final Res ult Performing Organization Address City/[facility]/ZIP Co de Phone Number [facility] * POCT glucose (06/18/2022 5:11 PM CDT) Pathologist [facility] Glucose, POC 168 70 - 199 mg/dL [facility] Blood 06/18/2022 5:11 PM CDT 06/18/2022 5:11 PM CDT Catherine Adams MD LAB POCT ORDERABLES - DEVIC E Final Result Performing Organization Address [facility] [place]/[facility]/ZIP Co de Phone Number [facility] [place] [address] * POCT glucose (06/18/2022 4:16 PM CDT) Glucose, POC 181 70 - 199 mg/dL [facility] Blood 06/18/2022 4:16 PM CDT 06/18/2022 4:16 PM CDT Catherine Adams MD LAB POCT ORDERABLES - DEVIC E Final Result Performing Organization Address [facility] [place]/[facility] de Phone Number [facility] [place] [address] * (ABNORMAL) POCT glucose (06/18/2022 2:38 PM CDT) Glucose, POC 264(H) 70 - 199 mg/dL [facility] Blood 06/18/2022 2:38 PM CDT 06/18/2022 2:38 PM CDT Catherine Adams MD LAB POCT ORDERABLES - DEVIC E Final Result Performing Organization Address [facility] [place]/[facility] Co de Phone Number [facility] [place] [address] * (ABNORMAL) POCT glucose (06/18/2022 1:34 PM CDT) Glucose, POC 376(H) 70 - 199 mg/dL [facility] Blood 06/18/2022 1:34 PM CDT 06/18/2022 1:34 PM CDT Catherine Adams MD LAB POCT ORDERABLES - DEVIC E Final Result Performing Organization Address City/[facility] Co de Phone Number [facility] [place] [address] * (ABNORMAL) Beta-hydroxybutyrate (06/18/2022 1:32 PM CDT) Beta-Hydroxybut yrate 0.9(H) 0.0 - 0.5 mmol/L [facility] Blood 06/18/2022 1:32 PM CDT 06/18/2022 1:48 PM CDT us Catherine Adams MD LAB BLOOD ORDERABLES Final Result [facility] [place] [address] * IR Central Line Placement > 5 [...] was obtained. ??Prior to beginning the procedure, Bradford Protocol was used to confirm the patient's [...] was obtained. Prior to beginning the procedure, Bradford Protocol was used to confirm the patient's [...] POC 170 70 - 199 mg/dL [facility] Blood 06/18/2022 11:3 4 AM CDT 06/18/2022 11:34 AM CDT Catherine Adams MD LAB POCT ORDERABLES - DEVIC E Final Result Performing Organization Address City/[facility]/ZIP Co de Phone Number [facility] [place] [address] * (ABNORMAL) Blood gas, arterial (06/18/2022 10:14 AM CDT) pH, Art 7.36 7.35 - 7.45 [facility] PCO2, Arterial 37 35 - 45 mmHg [facility] PO2, Arterial 74(L) 83 - 108 mmHg [facility] HCO3 Art (Calculated) 21 20 - 30 mmol/L [facility] BE, art -4 mmol/L [facility] Comment: Interpretive Data No Reference Range Established Current Interpretive Data was last revised on 2017 O2 Sat Art (Measured) 94 90 - 95 % [facility] Blood 06/18/2022 10:1 4 AM CDT 06/18/2022 10:23 AM CDT Marcelina Lo NP LAB BLOOD ORDERABLES Final Re sult Performing Organization Address [facility]/ZIP Co de Phone Number [facility] [place] [address] * POCT glucose (06/18/2022 10:13 AM CDT) Glucose, POC 83 70 - 199 mg/dL [facility] Blood 06/18/2022 10:1 3 AM CDT 06/18/2022 10:13 AM CDT Catherine Adams MD LAB POCT ORDERABLES - DEVIC E Final Result Performing Organization Address City/[facility]/ZIP Co de Phone Number [facility] [place] [address] * (ABNORMAL) eGFR (06/18/2022 8:52 AM CDT) [...] LAB BLOOD ORDERABLES Final Re sult [facility] [place] [address] * Vancomycin level random (06/18/2022 8:52 AM CDT) Vancomycin random 51.8 mcg/mL [facility] Comment: Repeated on Dilution Interpretive Data No reference ranges have been established for random drug levels. Current Interpretive Data was last revised on 2020. Blood 06/18/2022 8:52 AM CDT 06/18/2022 8:58 AM CDT us Catherine Adams MD LAB BLOOD ORDERABLES Final Result [facility] [place] [address] * (ABNORMAL) Differential, auto (06/18/2022 8:52 AM CDT) Neutrophil abs 5.2 1.7 - 6.5 K/cumm [facility] Imm gran abs 0.1 0.0 - 0.1 K/cumm [facility] Lymphocyte abs 1.8 0.8 - 3.3 K/cumm [facility] Monocyte abs 1.6(H) 0.2 - 0.8 K/cumm [facility] Eosinophil abs 0.2 0.0 - 0.5 K/cumm [facility] Basophil abs 0.1 0.0 - 0.1 K/cumm [facility] Neutrophil pct 58.4 % [facility] Comment: Interpretive Data Percent cell count reference ranges are not reported, since discordance with absolute values may lead to misinterpretation of CBC data. Current Interpretive Data was last revised on 2017. Imm gran pct 1.0 % [facility] Comment: Interpretive Data Percent cell count reference ranges are not reported, since discordance with absolute values may lead to misinterpretation of CBC data. Current Interpretive Data was last revised on 2017. Lymphocyte pct 19.8 % [facility] Comment: Interpretive Data Percent cell count reference ranges are not reported, since discordance with absolute values may lead to misinterpretation of CBC data. Current Interpretive Data was last revised on 2017. Monocyte pct 17.5 % [facility] Comment: Interpretive Data Percent cell count reference ranges are not reported, since discordance with absolute values may lead to misinterpretation of CBC data. Current Interpretive Data was last revised on 2017. Eosinophil pct 2.6 % [facility] Comment: Interpretive Data Percent cell count reference ranges are not reported, since discordance with absolute values may lead to misinterpretation of CBC data. Current Interpretive Data was last revised on 2017. Basophil pct 0.7 % [facility] Comment: Interpretive Data Percent cell count reference ranges are not reported, since discordance with absolute values may lead to misinterpretation of CBC data. Current Interpretive Data was last revised on 2017. Blood 06/18/2022 8:52 AM CDT 06/18/2022 8:58 AM CDT Marcelina Lo OPTICAL INSTRUMENT INSPECTOR LAB BLOOD ORDERABLES Final Re sult Performing Organization Address [facility] Co de Phone Number [facility] [place] [address] * (ABNORMAL) Magnesium (06/18/2022 8:52 AM CDT) Pathologist [facility] Magnesium 2.9(H) 1.4 - 2.5 mg/dL [facility] Blood 06/18/2022 8:52 AM CDT 06/18/2022 8:58 AM CDT Marcelina Lo OPTICAL INSTRUMENT INSPECTOR LAB BLOOD ORDERABLES Final Re sult Performing Organization Address [facility] [place] de Phone Number [facility] [place] [address] * (ABNORMAL) Comprehensive metabolic panel (06/18/2022 8:52 AM CDT) Pathologist [facility] Sodium 143 135 - 145 mmol/L [facility] Potassium, pl 4.0 3.3 - 4.9 mmol/L [facility] Chloride 104 97 - 110 mmol/L [facility] CO2 23 22 - 32 mmol/L [facility] Anion gap 16(H) 2 - 15 mmol/L [facility] BUN 40(H) 8 - 25 mg/dL [facility] Creatinine 6.24(H) 0.80 - 1.30 mg/dL [facility] Glucose 116 70 - 199 mg/dL [facility] Comment: Interpretive Data Fasting glucose >/= [...] 2017. Calcium 9.5 8.5 - 10.3 mg/dL [facility] Bilirubin, total 0.4 0.1 - 1.2 mg/dL [facility] Protein, pl 7.4 6.5 - 8.5 g/dL [facility] Albumin 3.3(L) 3.5 - 5.0 g/dL [facility] Alk phos 197(H) 40 - 130 Units/L [facility] ALT 36 7 - 55 Units/L [facility] AST 60(H) 10 - 50 Units/L [facility] Blood 06/18/2022 8:52 AM CDT 06/18/2022 8:58 AM CDT us Marcelina Lo OPTICAL INSTRUMENT INSPECTOR LAB BLOOD ORDERABLES Final Re sult [facility] [place] [address] * (ABNORMAL) CBC with auto differential (06/18/2022 8:52 AM CDT) WBC 8.9 3.8 - 9.9 K/cumm [facility] Hgb 8.8(L) 13.0 - 17.5 g/dL [facility] Hct 27.1(L) 38.9 - 50.3 % [facility] Plt 283 150 - 400 K/cumm [facility] MPV 9.7 9.1 - 12.3 fL [facility] RBC 2.81(L) 4.30 - 5.80 M/cumm [facility] MCV 96.4 81.3 - 96.4 fL [facility] MCH 31.3 27.1 - 33.3 pg [facility] MCHC 32.5 32.3 - 35.7 g/dL [facility] RDW CV 16.2(H) 11.1 - 14.9 % [facility] RDW SD 54.0(H) 35.7 - 48.1 fL [facility] NRBC abs 0.00 0.00 - 0.01 K/cumm [facility] Blood 06/18/2022 8:52 AM CDT 06/18/2022 8:58 AM CDT us Marcelina Lo OPTICAL INSTRUMENT INSPECTOR LAB BLOOD ORDERABLES Final Re sult Performing Organization Address City/[facility]/ZIP Co de Phone Number [facility] [place] [address] * POCT glucose (06/18/2022 8:49 AM CDT) Glucose, POC 109 70 - 199 mg/dL [facility] Blood 06/18/2022 8:49 AM CDT 06/18/2022 8:49 AM CDT us Catherine Adams MD LAB POCT ORDERABLES - DEVIC E Final Result Performing Organization Address City/[facility] Co de Phone Number [facility] [place] [address] * POCT glucose (06/18/2022 6:53 AM CDT) Glucose, POC 145 70 - 199 mg/dL [facility] Blood 06/18/2022 6:53 AM CDT 06/18/2022 6:53 AM CDT us Catherine Adams MD LAB POCT ORDERABLES - DEVIC E Final Result Performing Organization Address City/[facility]/ZIP Co de Phone Number [facility] [place] [address] * POCT glucose (06/18/2022 6:11 AM CDT) Glucose, POC 164 70 - 199 mg/dL [facility] Blood 06/18/2022 6:11 AM CDT 06/18/2022 6:11 AM CDT Catherine Adams MD LAB POCT ORDERABLES - DEVIC E Final Result [facility] [place] [address] * XR Chest 1 View (06/18/2022 5:48 [...] CDT) aPTT 63(H) 27 - 37 sec [facility] Comment: Interpretive Data Therapeutic heparin range: 60.0 - 94.0 seconds. Based on correlation with therapeutic heparin activity range of 0.3-0.7 Units/mL. Current interpretive data was last revised on 2020. Blood 06/18/2022 5:13 AM CDT 06/18/2022 5:42 AM CDT Narrative [facility] - 06/18/2022 6:05 AM CDT Draw STAT PTT 6 hrs after initiation of heparin infusion, draw STAT PTT 6 hours after each dose/rate change, and every 6 hours until 2 consecutive PTTs are within therapeutic range. Once two consecutive PTT's are therapeutic (60-94.9 seconds), then draw PTT every AM until heparin is discontinued. Catherine Adams MD LAB BLOOD ORDERABLES Final Result [facility] [place] [address] * (ABNORMAL) Blood gas, arterial (06/18/2022 5:13 AM CDT) pH, Art 7.33(L) 7.35 - 7.45 [facility] PCO2, Arterial 39 35 - 45 mmHg [facility] PO2, Arterial 92 83 - 108 mmHg [facility] HCO3 Art (Calculated) 21 20 - 30 mmol/L [facility] BE, art -5 mmol/L [facility] Comment: Interpretive Data No Reference Range Established Current Interpretive Data was last revised on 2017 O2 Sat Art (Measured) 96(H) 90 - 95 % [facility] Blood 06/18/2022 5:13 AM CDT 06/18/2022 5:34 AM CDT us Marcelina Lo OPTICAL INSTRUMENT INSPECTOR LAB BLOOD ORDERABLES Final Re sult Performing Organization Address City/[facility] Co de Phone Number [facility] [place] [address] * (ABNORMAL) POCT glucose (06/18/2022 5:10 AM CDT) Glucose, POC 205(H) 70 - 199 mg/dL [facility] Blood 06/18/2022 5:10 AM CDT 06/18/2022 5:10 AM CDT Catherine Adams MD LAB POCT ORDERABLES - DEVIC E Final Result Performing Organization Address [facility] [place]/[facility] Co de Phone Number [facility] [place] [address] * POCT glucose (06/18/2022 4:08 AM CDT) Glucose, POC 186 70 - 199 mg/dL [facility] Blood 06/18/2022 4:08 AM CDT 06/18/2022 4:08 AM CDT Catherine Adams MD LAB POCT ORDERABLES - DEVIC E Final Result Performing Organization Address City/[facility] Co de Phone Number [facility] [place] [address] * POCT glucose (06/18/2022 3:24 AM CDT) Glucose, POC 179 70 - 199 mg/dL [facility] Blood 06/18/2022 3:24 AM CDT 06/18/2022 3:24 AM CDT us Catherine Adams MD LAB POCT ORDERABLES - DEVIC E Final Result Performing Organization Address [facility]/[facility] de Phone Number [facility] [place] [address] * POCT glucose (06/18/2022 2:25 AM CDT) Glucose, POC 132 70 - 199 mg/dL [facility] Blood 06/18/2022 2:25 AM CDT 06/18/2022 2:25 AM CDT us Catherine Adams MD LAB POCT ORDERABLES - DEVIC E Final Result Performing Organization Address [facility] Phone Number [facility] [place] [address] * POCT glucose (06/18/2022 1:27 AM CDT) Glucose, POC 105 70 - 199 mg/dL [facility] Blood 06/18/2022 1:27 AM CDT 06/18/2022 1:27 AM CDT us Catherine Adams MD LAB POCT ORDERABLES - DEVIC E Final Result Performing Organization Address [facility] Phone Number [facility] [place] [address] * POCT glucose (06/17/2022 10:45 PM CDT) Glucose, POC 138 70 - 199 mg/dL [facility] Blood 06/17/2022 10:4 5 PM CDT 06/17/2022 10:45 PM CDT us Catherine Adams MD LAB POCT ORDERABLES - DEVIC E Final Result Performing Organization Address City/[facility] Co de Phone Number [facility] [place] [address] * (ABNORMAL) Hemoglobin and hematocrit (06/17/2022 10:31 PM CDT) [facility] Hgb 7.9(L) 13.0 - 17.5 g/dL [facility] Hct 24.0(L) 38.9 - 50.3 % [facility] Blood 06/17/2022 10:3 1 PM CDT 06/17/2022 10:45 PM CDT us Tyra De La Torre MD LAB BLOOD ORDERABLES Final Resu lt Performing Organization Address [facility]/[facility] Co de Phone Number [facility] [place] [address] * Type and screen (06/17/2022 10:31 PM CDT) [facility] Maribel, indirect Negative [facility] ABO Rh A Positive [facility] Blood 06/17/2022 10:3 1 PM CDT 06/17/2022 10:53 PM CDT Narrative [facility] - 06/17/2022 11:49 PM CDT Has the patient had Daratumumab or Isatuximab in the past 6 months?->Unknown us Catherine Adams MD LAB BLOOD BANK TEST ORDERAB LES Final Result Performing Organization Address [facility] Co de Phone Number [facility] [place] [address] * (ABNORMAL) eGFR (06/17/2022 9:17 PM CDT) [facility] eGFR 11(L) 90 - 130 mL/min/1. 73 m2 [facility] Comment: Interpretive Data Reference Interval Normal [...] BLOOD ORDERABLES Final Result Performing Organization Address City/[facility]/ZIP Co de Phone Number [facility] [place] [address] * (ABNORMAL) Magnesium (06/17/2022 9:17 PM CDT) Magnesium 2.9(H) 1.4 - 2.5 mg/dL [facility] Blood 06/17/2022 9:17 PM CDT 06/17/2022 9:27 PM CDT Catherine Adams MD LAB BLOOD ORDERABLES Final Result Performing Organization Address City/[facility] Co de Phone Number [facility] [place] [address] * (ABNORMAL) Comprehensive metabolic panel (06/17/2022 9:17 PM CDT) Sodium 142 135 - 145 mmol/L [facility] Potassium, pl 3.2(L) 3.3 - 4.9 mmol/L [facility] Chloride 104 97 - 110 mmol/L [facility] CO2 23 22 - 32 mmol/L [facility] Anion gap 15 2 - 15 mmol/L [facility] BUN 41(H) 8 - 25 mg/dL [facility] Creatinine 5.65(H) 0.80 - 1.30 mg/dL [facility] Glucose 121 70 - 199 mg/dL [facility] Comment: Interpretive Data Fasting glucose >/= [...] 2017. Calcium 9.3 8.5 - 10.3 mg/dL [facility] Bilirubin, total 0.4 0.1 - 1.2 mg/dL [facility] Protein, pl 6.4(L) 6.5 - 8.5 g/dL [facility] Albumin 2.7(L) 3.5 - 5.0 g/dL [facility] Alk phos 181(H) 40 - 130 Units/L [facility] ALT 33 7 - 55 Units/L [facility] AST 52(H) 10 - 50 Units/L [facility] Blood 06/17/2022 9:17 PM CDT 06/17/2022 9:27 PM CDT us Catherine Adams MD LAB BLOOD ORDERABLES Final Result [facility] [place] [address] * (ABNORMAL) Differential, auto (06/17/2022 9:17 PM CDT) Neutrophil abs 4.5 1.7 - 6.5 K/cumm [facility] Imm gran abs 0.1 0.0 - 0.1 K/cumm [facility] Lymphocyte abs 1.5 0.8 - 3.3 K/cumm [facility] Monocyte abs 1.4(H) 0.2 - 0.8 K/cumm [facility] Eosinophil abs 0.3 0.0 - 0.5 K/cumm [facility] Basophil abs 0.0 0.0 - 0.1 K/cumm [facility] Neutrophil pct 58.5 % [facility] Comment: Interpretive Data Percent cell count reference ranges are not reported, since discordance with absolute values may lead to misinterpretation of CBC data. Current Interpretive Data was last revised on 2017. Imm gran pct 1.0 % [facility] Comment: Interpretive Data Percent cell count reference ranges are not reported, since discordance with absolute values may lead to misinterpretation of CBC data. Current Interpretive Data was last revised on 2017. Lymphocyte pct 19.0 % [facility] Comment: Interpretive Data Percent cell count reference ranges are not reported, since discordance with absolute values may lead to misinterpretation of CBC data. Current Interpretive Data was last revised on 2017. Monocyte pct 17.6 % [facility] Comment: Interpretive Data Percent cell count reference ranges are not reported, since discordance with absolute values may lead to misinterpretation of CBC data. Current Interpretive Data was last revised on 2017. Eosinophil pct 3.5 % [facility] Comment: Interpretive Data Percent cell count reference ranges are not reported, since discordance with absolute values may lead to misinterpretation of CBC data. Current Interpretive Data was last revised on 2017. Basophil pct 0.4 % [facility] Comment: Interpretive Data Percent cell count reference ranges are not reported, since discordance with absolute values may lead to misinterpretation of CBC data. Current Interpretive Data was last revised on 2017. Blood 06/17/2022 9:17 PM CDT 06/17/2022 9:26 PM CDT us Marcelina Lo NP LAB BLOOD ORDERABLES Final Re sult Performing Organization Address [facility] [place]/[facility] Co de Phone Number [facility] [place] [address] * Lactate (06/17/2022 9:17 PM CDT) Lactate 1.3 0.7 - 2.0 mmol/L [facility] Blood 06/17/2022 9:17 PM CDT 06/17/2022 9:29 PM CDT us Catherine Adams MD LAB BLOOD ORDERABLES Final Result Performing Organization Address [facility] [place]/[facility] de Phone Number [facility] [place] [address] * (ABNORMAL) Triglycerides (06/17/2022 9:17 PM CDT) Triglycerides 272(H) <=149 mg/dL [facility] Comment: Interpretive Data Ages < or [...] PM CDT 06/17/2022 9:27 PM CDT Narrative [facility] - 06/17/2022 10:11 PM CDT While on propofol infusion. Catherine Adams MD LAB BLOOD ORDERABLES Final Result [facility] [place] [address] * (ABNORMAL) Phosphorus (06/17/2022 9:17 PM CDT) Phosphorus, pl 5.8(H) 2.3 - 4.5 mg/dL [facility] Blood 06/17/2022 9:17 PM CDT 06/17/2022 9:27 PM CDT Marcelina Lo OPTICAL INSTRUMENT INSPECTOR LAB BLOOD ORDERABLES Final Re sult Performing Organization Address [facility] [place]/[facility] Co de Phone Number [facility] [place] [address] * Beta-hydroxybutyrate (06/17/2022 9:17 PM CDT) Beta-Hydroxybut yrate 0.1 0.0 - 0.5 mmol/L [facility] Blood 06/17/2022 9:17 PM CDT 06/17/2022 9:26 PM CDT Marcelina Lo OPTICAL INSTRUMENT INSPECTOR LAB BLOOD ORDERABLES Final Re sult Performing Organization Address City/[facility]/ZIP Co de Phone Number [facility] [place] [address] * Lipase (06/17/2022 9:17 PM CDT) Pathologist [facility] Lipase 22 10 - 99 Units/L [facility] Blood 06/17/2022 9:17 PM CDT 06/17/2022 9:27 PM CDT Marcelina Lo OPTICAL INSTRUMENT INSPECTOR LAB BLOOD ORDERABLES Final Re sult [facility] [place] [address] * (ABNORMAL) CBC with auto differential (06/17/2022 9:17 PM CDT) [facility] WBC 7.7 3.8 - 9.9 K/cumm [facility] Hgb 6.2(C) 13.0 - 17.5 g/dL [facility] Comment:Critical result call ed to and read back by MINERVA CLINTON RN on 06 17 2022 at 2214 to BRIAN BATES. Hct 19.1(L) 38.9 - 50.3 % [facility] Plt 300 150 - 400 K/cumm [facility] MPV 10.1 9.1 - 12.3 fL [facility] RBC 1.98(L) 4.30 - 5.80 M/cumm [facility] MCV 96.5(H) 81.3 - 96.4 fL [facility] MCH 31.3 27.1 - 33.3 pg [facility] MCHC 32.5 32.3 - 35.7 g/dL [facility] RDW CV 15.9(H) 11.1 - 14.9 % [facility] RDW SD 50.9(H) 35.7 - 48.1 fL [facility] NRBC abs 0.00 0.00 - 0.01 K/cumm [facility] Blood 06/17/2022 9:17 PM CDT 06/17/2022 9:26 PM CDT Marcelina Lo OPTICAL INSTRUMENT INSPECTOR LAB BLOOD ORDERABLES Final Re sult [facility] [place] [address] * POCT glucose (06/17/2022 8:52 PM CDT) Glucose, POC 129 70 - 199 mg/dL [facility] Blood 06/17/2022 8:52 PM CDT 06/17/2022 8:52 PM CDT Catherine Adams MD LAB POCT ORDERABLES - DEVIC E Final Result Performing Organization Address City/[facility] Co de Phone Number [facility] [place] [address] * POCT glucose (06/17/2022 7:40 PM CDT) Glucose, POC 118 70 - 199 mg/dL [facility] Blood 06/17/2022 7:40 PM CDT 06/17/2022 7:40 PM CDT Catherine Adams MD LAB POCT ORDERABLES - DEVIC E Final Result Performing Organization Address City/[facility] Co de Phone Number [facility] [place] [address] * [place] INSJ NON-TUNNELED CENTRAL VENOUS CATH AGE 3 YR/> (06/17/2022 7:30 PM CDT) Narrative Rufino Flores MD - 06/17/2022 7:30 PM CDT Aj Poe MD ? 06/17/2022 ??7:37 PM Central Line Insertion Date/Time: 06/17/2022 7:30 PM Performed by: Aj Poe MD Authorized by: Aj Poe MD [facility] Protocol: RN Notified of Procedure: yes ?? Informed consent: ??Patient/wholesale representative/guardian agrees and accepts and risks, benefits, [...] Glucose, POC 133 70 - 199 mg/dL [facility] Blood 06/17/2022 5:11 PM CDT 06/17/2022 5:11 PM CDT Catherine Adams MD LAB POCT ORDERABLES - DEVIC E Final Result [facility] [place] [address] * POCT glucose (06/17/2022 3:01 PM CDT) Glucose, POC 142 70 - 199 mg/dL [facility] Blood 06/17/2022 3:01 PM CDT 06/17/2022 3:01 PM CDT Catherine Adams MD LAB POCT ORDERABLES - DEVIC E Final Result Performing Organization Address City/[facility] Co de Phone Number [facility] [place] [address] * POCT glucose (06/17/2022 1:50 PM CDT) Glucose, POC 141 70 - 199 mg/dL [facility] Blood 06/17/2022 1:50 PM CDT 06/17/2022 1:50 PM CDT Catherine Adams MD LAB POCT ORDERABLES - DEVIC E Final Result Performing Organization Address [facility] [place]/[facility] Co de Phone Number [facility] [place] [address] * POCT glucose (06/17/2022 12:59 PM CDT) Glucose, POC 151 70 - 199 mg/dL [facility] Blood 06/17/2022 12:5 9 PM CDT 06/17/2022 12:59 PM CDT Catherine Adams MD LAB POCT ORDERABLES - DEVIC E Final Result Performing Organization Address City/[facility] de Phone Number [facility] [place] [address] * POCT glucose (06/17/2022 11:55 AM CDT) Glucose, POC 167 70 - 199 mg/dL [facility] Blood 06/17/2022 11:5 5 AM CDT 06/17/2022 11:55 AM CDT us Catherine Adams MD LAB POCT ORDERABLES - DEVIC E Final Result Performing Organization Address [facility]/[facility] Co de Phone Number [facility] [place] [address] * POCT glucose (06/17/2022 10:51 AM CDT) Glucose, POC 185 70 - 199 mg/dL [facility] Blood 06/17/2022 10:5 1 AM CDT 06/17/2022 10:51 AM CDT Catherine Adams MD LAB POCT ORDERABLES - DEVIC E Final Result Performing Organization Address [facility]/[facility] de Phone Number [facility] [place] [address] * POCT glucose (06/17/2022 10:11 AM CDT) Glucose, POC 119 70 - 199 mg/dL [facility] Blood 06/17/2022 10:1 1 AM CDT 06/17/2022 10:11 AM CDT Catherine Adams MD LAB POCT ORDERABLES - DEVIC E Final Result Performing Organization Address City/[facility] [place] [address] * POCT glucose (06/17/2022 9:39 AM CDT) Glucose, POC 181 70 - 199 mg/dL [facility] Blood 06/17/2022 9:39 AM CDT 06/17/2022 9:39 AM CDT Catherine Adams MD LAB POCT ORDERABLES - DEVIC E Final Result Performing Organization Address [facility] [place] Clinic/ZIP Co de Phone Number ALESSANDRA CARRION [facility] [place] [address] * Blood culture Blood (06/17/2022 8:13 AM CDT) Report Final Report: No growth [facility] Blood 06/17/2022 8:13 AM CDT 06/17/2022 [...] organism identification may be performed using the [employer] Gram-Positive Blood Culture Assay. This assay detects microbial DNA in positive blood culture broth via hybridization of target DNA to capture oligonucleotides on a microarray. This assay has been cleared by the [place] Food and Drug Administration and its performance characteristics have been verified by the [facility] Microbiology Laboratory. 5. ?For questions about this culture, contact the Microbiology Laboratory at [phone]. Interpretive data was last revised on 2020. Catherine Adams MD LAB MICROBIOLOGY - GENERAL ORDERABLES Final Result Performing Organization Address City/[facility] Co de Phone Number ALESSANDRA [facility] [place] [address] * Blood culture Blood (06/17/2022 8:13 AM [...] organism identification may be performed using the [employer] Gram-Positive Blood Culture Assay. This assay detects microbial DNA in positive blood culture broth via hybridization of target DNA to capture oligonucleotides on a microarray. This assay has been cleared by the [place] Food and Drug Administration and its performance characteristics have been verified by the [facility] Microbiology Laboratory. 5. ?For questions about this culture, contact the Microbiology Laboratory at [phone]. Interpretive data was last revised on 2020. Catherine Adams MD LAB MICROBIOLOGY - GENERAL ORDERABLES Final Result ALESSANDRA CARRION [facility] [place] [address] * (ABNORMAL) eGFR (06/17/2022 8:02 AM CDT) eGFR 13(L) 90 - 130 mL/min/1. 73 m2 [facility] Comment: Interpretive Data Reference Interval Normal [...] 06/17/2022 8:25 AM CDT us Marcelina Lo OPTICAL INSTRUMENT INSPECTOR LAB BLOOD ORDERABLES Final Re sult [facility] [place] [address] * (ABNORMAL) Differential, auto (06/17/2022 8:02 AM CDT) [facility] Neutrophil abs 5.2 1.7 - 6.5 K/cumm [facility] Imm gran abs 0.1 0.0 - 0.1 K/cumm [facility] Lymphocyte abs 1.6 0.8 - 3.3 K/cumm [facility] Monocyte abs 1.3(H) 0.2 - 0.8 K/cumm [facility] Eosinophil abs 0.2 0.0 - 0.5 K/cumm [facility] Basophil abs 0.1 0.0 - 0.1 K/cumm [facility] Neutrophil pct 61.7 % [facility] Comment: Interpretive Data Percent cell count reference ranges are not reported, since discordance with absolute values may lead to misinterpretation of CBC data. Current Interpretive Data was last revised on 2017. Imm gran pct 1.3 % [facility] Comment: Interpretive Data Percent cell count reference ranges are not reported, since discordance with absolute values may lead to misinterpretation of CBC data. Current Interpretive Data was last revised on 2017. Lymphocyte pct 18.6 % [facility] Comment: Interpretive Data Percent cell count reference ranges are not reported, since discordance with absolute values may lead to misinterpretation of CBC data. Current Interpretive Data was last revised on 2017. Monocyte pct 15.2 % [facility] Comment: Interpretive Data Percent cell count reference ranges are not reported, since discordance with absolute values may lead to misinterpretation of CBC data. Current Interpretive Data was last revised on 2017. Eosinophil pct 2.6 % [facility] Comment: Interpretive Data Percent cell count reference ranges are not reported, since discordance with absolute values may lead to misinterpretation of CBC data. Current Interpretive Data was last revised on 2017. Basophil pct 0.6 % [facility] Comment: Interpretive Data Percent cell count reference ranges are not reported, since discordance with absolute values may lead to misinterpretation of CBC data. Current Interpretive Data was last revised on 2017. Blood 06/17/2022 8:02 AM CDT 06/17/2022 8:25 AM CDT us Marcelina Lo OPTICAL INSTRUMENT INSPECTOR LAB BLOOD ORDERABLES Final Re sult [facility] [place] [address] * (ABNORMAL) Magnesium (06/17/2022 8:02 AM CDT) Magnesium 2.9(H) 1.4 - 2.5 mg/dL [facility] Blood 06/17/2022 8:02 AM CDT 06/17/2022 8:25 AM CDT us Marcelina Lo OPTICAL INSTRUMENT INSPECTOR LAB BLOOD ORDERABLES Final Re sult [facility] [place] [address] * (ABNORMAL) Comprehensive metabolic panel (06/17/2022 8:02 AM CDT) Sodium 140 135 - 145 mmol/L [facility] Potassium, pl 3.9 3.3 - 4.9 mmol/L [facility] Chloride 104 97 - 110 mmol/L [facility] CO2 24 22 - 32 mmol/L [facility] Anion gap 12 2 - 15 mmol/L [facility] BUN 41(H) 8 - 25 mg/dL [facility] Creatinine 5.16(H) 0.80 - 1.30 mg/dL [facility] Glucose 206(H) 70 - 199 mg/dL [facility] Comment: Interpretive Data Fasting glucose >/= [...] 2017. Calcium 9.1 8.5 - 10.3 mg/dL [facility] Bilirubin, total 0.4 0.1 - 1.2 mg/dL [facility] Protein, pl 6.9 6.5 - 8.5 g/dL [facility] Albumin 3.0(L) 3.5 - 5.0 g/dL [facility] Alk phos 199(H) 40 - 130 Units/L [facility] ALT 35 7 - 55 Units/L [facility] AST 43 10 - 50 Units/L [facility] Blood 06/17/2022 8:02 AM CDT 06/17/2022 8:25 AM CDT Marcelina Lo OPTICAL INSTRUMENT INSPECTOR LAB BLOOD ORDERABLES Final Re sult Performing Organization Address City/[facility]/ZIP Co de Phone Number [facility] [place] [address] * (ABNORMAL) CBC with auto differential (06/17/2022 8:02 AM CDT) WBC 8.5 3.8 - 9.9 K/cumm [facility] Hgb 7.9(L) 13.0 - 17.5 g/dL [facility] Hct 24.6(L) 38.9 - 50.3 % [facility] Plt 262 150 - 400 K/cumm [facility] MPV 10.1 9.1 - 12.3 fL [facility] RBC 2.55(L) 4.30 - 5.80 M/cumm [facility] MCV 96.5(H) 81.3 - 96.4 fL [facility] MCH 31.0 27.1 - 33.3 pg [facility] MCHC 32.1(L) 32.3 - 35.7 g/dL [facility] RDW CV 15.6(H) 11.1 - 14.9 % [facility] RDW SD 49.9(H) 35.7 - 48.1 fL [facility] NRBC abs 0.00 0.00 - 0.01 K/cumm [facility] Blood 06/17/2022 8:02 AM CDT 06/17/2022 8:25 AM CDT Marcelina Lo OPTICAL INSTRUMENT INSPECTOR LAB BLOOD ORDERABLES Final Re sult Performing Organization Address City/[facility]/ZIP Co de Phone Number [facility] [place] [address] * (ABNORMAL) POCT glucose (06/17/2022 7:37 AM CDT) [facility] Glucose, POC 202(H) 70 - 199 mg/dL [facility] Blood 06/17/2022 7:37 AM CDT 06/17/2022 7:37 AM CDT Catherine Adams MD LAB POCT ORDERABLES - DEVIC E Final Result Performing Organization Address City/[facility]/[place] [address] * (ABNORMAL) aPTT (06/17/2022 6:14 AM CDT) [facility] aPTT 64(H) 27 - 37 sec [facility] Comment: Interpretive Data Therapeutic heparin range: 60.0 - 94.0 seconds. Based on correlation with therapeutic heparin activity range of 0.3-0.7 Units/mL. Current interpretive data was last revised on 2020. Blood 06/17/2022 6:14 AM CDT 06/17/2022 7:27 AM CDT Narrative [facility] - 06/17/2022 7:50 AM CDT Draw STAT PTT 6 hrs after initiation of heparin infusion, draw STAT PTT 6 hours after each dose/rate change, and every 6 hours until 2 consecutive PTTs are within therapeutic range. Once two consecutive PTT's are therapeutic (60-94.9 seconds), then draw PTT every AM until heparin is discontinued. us Catherine Adams MD LAB BLOOD ORDERABLES Final Result [facility] [place] [address] * (ABNORMAL) POCT glucose (06/17/2022 6:13 AM CDT) [facility] Glucose, POC 234(H) 70 - 199 mg/dL [facility] Blood 06/17/2022 6:13 AM CDT 06/17/2022 6:13 AM CDT us Catherine Adams MD LAB POCT ORDERABLES - DEVIC E Final Result [facility] [place] [address] * XR Chest 1 View (06/17/2022 5:29 [...] Glucose, POC 176 70 - 199 mg/dL [facility] Blood 06/17/2022 4:53 AM CDT 06/17/2022 4:53 AM CDT Catherine Adams MD LAB POCT ORDERABLES - DEVIC E Final Result Performing Organization Address [facility] de Phone Number [facility] [place] [address] * (ABNORMAL) Blood gas, arterial (06/17/2022 3:46 AM CDT) [facility] pH, Art 7.32(L) 7.35 - 7.45 [facility] PCO2, Arterial 44 35 - 45 mmHg [facility] PO2, Arterial 93 83 - 108 mmHg [facility] HCO3 Art (Calculated) 24 20 - 30 mmol/L [facility] BE, art -3 mmol/L [facility] Comment: Interpretive Data No Reference Range Established Current Interpretive Data was last revised on 2017 O2 Sat Art (Measured) 96(H) 90 - 95 % [facility] Blood 06/17/2022 3:46 AM CDT 06/17/2022 3:52 AM CDT Marcelina Lo NP LAB BLOOD ORDERABLES Final Re sult Performing Organization Address [facility] de Phone Number [facility] [place] [address] * POCT glucose (06/17/2022 3:44 AM CDT) Glucose, POC 94 70 - 199 mg/dL [facility] Blood 06/17/2022 3:44 AM CDT 06/17/2022 3:44 AM CDT us Catherine Adams MD LAB POCT ORDERABLES - DEVIC E Final Result Performing Organization Address City/[facility] Co de Phone Number [facility] [place] [address] * POCT glucose (06/17/2022 2:52 AM CDT) Glucose, POC 119 70 - 199 mg/dL [facility] Blood 06/17/2022 2:52 AM CDT 06/17/2022 2:52 AM CDT Catherine Adams MD LAB POCT ORDERABLES - DEVIC E Final Result Performing Organization Address City/[facility] Co de Phone Number [facility] [place] [address] * POCT glucose (06/17/2022 1:52 AM CDT) Glucose, POC 127 70 - 199 mg/dL [facility] Blood 06/17/2022 1:52 AM CDT 06/17/2022 1:52 AM CDT Catherine Adams MD LAB POCT ORDERABLES - DEVIC E Final Result Performing Organization Address City/[facility] Co de Phone Number [facility] [place] [address] * POCT glucose (06/17/2022 12:36 AM CDT) Glucose, POC 165 70 - 199 mg/dL [facility] Blood 06/17/2022 12:3 6 AM CDT 06/17/2022 12:36 AM CDT Catherine Adams MD LAB POCT ORDERABLES - DEVIC E Final Result Performing Organization Address [facility] Co de Phone Number [facility] [place] [address] * (ABNORMAL) aPTT (06/17/2022 12:36 AM CDT) aPTT 67(H) 27 - 37 sec [facility] Comment: Interpretive Data Therapeutic heparin range: 60.0 - 94.0 seconds. Based on correlation with therapeutic heparin activity range of 0.3-0.7 Units/mL. Current interpretive data was last revised on 2020. Blood 06/17/2022 12:3 6 AM CDT 06/17/2022 1:04 AM CDT Narrative [facility] - 06/17/2022 1:09 AM CDT Draw STAT [...] Final Result Performing Organization Address [facility] de Phone Number [facility] [place] [address] * (ABNORMAL) Blood gas, arterial (06/16/2022 11:19 PM CDT) pH, Art 7.38 7.35 - 7.45 [facility] PCO2, Arterial 37 35 - 45 mmHg [facility] PO2, Arterial 99 83 - 108 mmHg [facility] HCO3 Art (Calculated) 22 20 - 30 mmol/L [facility] BE, art -3 mmol/L [facility] Comment: Interpretive Data No Reference Range Established Current Interpretive Data was last revised on 2017 O2 Sat Art (Measured) 97(H) 90 - 95 % [facility] Blood 06/16/2022 11:1 9 PM CDT 06/16/2022 11:24 PM CDT Marcelina Lo NP LAB BLOOD ORDERABLES Final Re sult Performing Organization Address [facility] Co de Phone Number [facility] [place] [place] [address] * POCT glucose (06/16/2022 11:11 PM CDT) Glucose, POC 172 70 - 199 mg/dL [facility] Blood 06/16/2022 11:1 1 PM CDT 06/16/2022 11:11 PM CDT Catherine Adams MD LAB POCT ORDERABLES - DEVIC E Final Result Performing Organization Address [facility] Co de Phone Number [facility] [place] [address] * POCT glucose (06/16/2022 10:07 PM CDT) Glucose, POC 166 70 - 199 mg/dL [facility] Blood 06/16/2022 10:0 7 PM CDT 06/16/2022 10:07 PM CDT Catherine Adams MD LAB POCT ORDERABLES - DEVIC E Final Result Performing Organization Address City/[facility] Co de Phone Number [facility] [place] [address] * XR Chest 1 View (06/16/2022 9:03 [...] * (ABNORMAL) eGFR (06/16/2022 8:52 PM CDT) [facility] eGFR 14(L) 90 - 130 mL/min/1. 73 m2 [facility] Comment: Interpretive Data Reference Interval [...] 06/16/2022 9:10 PM CDT us Marcelina Lo OPTICAL INSTRUMENT INSPECTOR LAB BLOOD ORDERABLES Final Re sult [facility] [place] [address] * (ABNORMAL) Differential, auto (06/16/2022 8:52 PM CDT) Neutrophil abs 5.4 1.7 - 6.5 K/cumm [facility] Imm gran abs 0.2(H) 0.0 - 0.1 K/cumm [facility] Lymphocyte abs 1.0 0.8 - 3.3 K/cumm [facility] Monocyte abs 1.1(H) 0.2 - 0.8 K/cumm [facility] Eosinophil abs 0.2 0.0 - 0.5 K/cumm [facility] Basophil abs 0.0 0.0 - 0.1 K/cumm [facility] Neutrophil pct 68.6 % [facility] Comment: Interpretive Data Percent cell count reference ranges are not reported, since discordance with absolute values may lead to misinterpretation of CBC data. Current Interpretive Data was last revised on 2017. Imm gran pct 2.0 % [facility] Comment: Interpretive Data Percent cell count reference ranges are not reported, since discordance with absolute values may lead to misinterpretation of CBC data. Current Interpretive Data was last revised on 2017. Lymphocyte pct 12.9 % [facility] Comment: Interpretive Data Percent cell count reference ranges are not reported, since discordance with absolute values may lead to misinterpretation of CBC data. Current Interpretive Data was last revised on 2017. Monocyte pct 14.3 % [facility] Comment: Interpretive Data Percent cell count reference ranges are not reported, since discordance with absolute values may lead to misinterpretation of CBC data. Current Interpretive Data was last revised on 2017. Eosinophil pct 1.9 % [facility] Comment: Interpretive Data Percent cell count reference ranges are not reported, since discordance with absolute values may lead to misinterpretation of CBC data. Current Interpretive Data was last revised on 2017. Basophil pct 0.3 % [facility] Comment: Interpretive Data Percent cell count reference ranges are not reported, since discordance with absolute values may lead to misinterpretation of CBC data. Current Interpretive Data was last revised on 2017. Blood 06/16/2022 8:52 PM CDT 06/16/2022 9:02 PM CDT us Marcelina Lo NP LAB BLOOD ORDERABLES Final Re sult [facility] [place] [address] * Lactate (06/16/2022 8:52 PM CDT) Lactate 1.1 0.7 - 2.0 mmol/L [facility] Blood 06/16/2022 8:52 PM CDT 06/16/2022 9:10 PM CDT us Catherine Adams MD LAB BLOOD ORDERABLES Final Result [facility] [place] [address] * (ABNORMAL) Triglycerides (06/16/2022 8:52 PM CDT) Triglycerides 253(H) <=149 mg/dL [facility] Comment: Interpretive Data Ages < or [...] PM CDT 06/16/2022 9:10 PM CDT Narrative [facility] - 06/16/2022 9:44 PM CDT While on propofol infusion. us Catherine Adams MD LAB BLOOD ORDERABLES Final Result Performing Organization Address [facility] Co de Phone Number [facility] [place] [address] * (ABNORMAL) Phosphorus (06/16/2022 8:52 PM CDT) Phosphorus, pl 5.4(H) 2.3 - 4.5 mg/dL [facility] Blood 06/16/2022 8:52 PM CDT 06/16/2022 9:10 PM CDT Marcelina Lo OPTICAL INSTRUMENT INSPECTOR LAB BLOOD ORDERABLES Final Re sult Performing Organization Address [facility] de Phone Number [facility] [place] [address] * Beta-hydroxybutyrate (06/16/2022 8:52 PM CDT) Beta-Hydroxybut yrate 0.1 0.0 - 0.5 mmol/L [facility] Blood 06/16/2022 8:52 PM CDT 06/16/2022 9:02 PM CDT Marcelina Lo OPTICAL INSTRUMENT INSPECTOR LAB BLOOD ORDERABLES Edited R esult - Final Performing Organization Address [facility] Co de Phone Number [facility] [place] [address] * Lipase (06/16/2022 8:52 PM CDT) Lipase 26 10 - 99 Units/L [facility] Blood 06/16/2022 8:52 PM CDT 06/16/2022 9:10 PM CDT us Mareclina Lo OPTICAL INSTRUMENT INSPECTOR LAB BLOOD ORDERABLES Final Re sult Performing Organization Address [facility] de Phone Number [facility] [address] * (ABNORMAL) Magnesium (06/16/2022 8:52 PM CDT) Magnesium 3.0(H) 1.4 - 2.5 mg/dL [facility] Blood 06/16/2022 8:52 PM CDT 06/16/2022 9:10 PM CDT us Marcelina Lo OPTICAL INSTRUMENT INSPECTOR LAB BLOOD ORDERABLES Final Re sult [facility] [place] [address] * (ABNORMAL) Comprehensive metabolic panel (06/16/2022 8:52 PM CDT) Sodium 140 135 - 145 mmol/L [facility] Potassium, pl 4.0 3.3 - 4.9 mmol/L [facility] Chloride 104 97 - 110 mmol/L [facility] CO2 25 22 - 32 mmol/L [facility] Anion gap 11 2 - 15 mmol/L [facility] BUN 36(H) 8 - 25 mg/dL [facility] Creatinine 4.65(H) 0.80 - 1.30 mg/dL [facility] Glucose 197 70 - 199 mg/dL [facility] Comment: Interpretive Data Fasting glucose >/= [...] Calcium 9.3 8.5 - 10.3 mg/dL [facility] Bilirubin, total 0.4 0.1 - 1.2 mg/dL [facility] Protein, pl 6.5 6.5 - 8.5 g/dL [facility] Albumin 2.7(L) 3.5 - 5.0 g/dL [facility] Alk phos 197(H) 40 - 130 Units/L [facility] ALT 35 7 - 55 Units/L [facility] AST 36 10 - 50 Units/L [facility] Blood 06/16/2022 8:52 PM CDT 06/16/2022 9:10 PM CDT Marcelina Lo OPTICAL INSTRUMENT INSPECTOR LAB BLOOD ORDERABLES Final Re sult Performing Organization Address City/[facility]/ZIP Co de Phone Number [facility] [place] [address] * (ABNORMAL) CBC with auto differential (06/16/2022 8:52 PM CDT) Pathologist [facility] WBC 7.9 3.8 - 9.9 K/cumm [facility] Hgb 7.4(L) 13.0 - 17.5 g/dL [facility] Hct 22.8(L) 38.9 - 50.3 % [facility] Plt 214 150 - 400 K/cumm [facility] MPV 10.1 9.1 - 12.3 fL [facility] RBC 2.41(L) 4.30 - 5.80 M/cumm [facility] MCV 94.6 81.3 - 96.4 fL [facility] MCH 30.7 27.1 - 33.3 pg [facility] MCHC 32.5 32.3 - 35.7 g/dL [facility] RDW CV 14.9 11.1 - 14.9 % [facility] RDW SD 47.8 35.7 - 48.1 fL [facility] NRBC abs 0.00 0.00 - 0.01 K/cumm [facility] Blood 06/16/2022 8:52 PM CDT 06/16/2022 9:02 PM CDT Marcelina Lo OPTICAL INSTRUMENT INSPECTOR LAB BLOOD ORDERABLES Final Re sult [facility] [place] [address] * (ABNORMAL) POCT glucose (06/16/2022 8:06 PM CDT) Glucose, POC 230(H) 70 - 199 mg/dL [facility] Blood 06/16/2022 8:06 PM CDT 06/16/2022 8:06 PM CDT Catherine Adams MD LAB POCT ORDERABLES - DEVIC E Final Result Performing Organization Address [facility] de Phone Number [facility] [place] [address] * (ABNORMAL) POCT glucose (06/16/2022 7:16 PM CDT) Glucose, POC 250(H) 70 - 199 mg/dL [facility] Blood 06/16/2022 7:16 PM CDT 06/16/2022 7:16 PM CDT Catherine Adams MD LAB POCT ORDERABLES - DEVIC E Final Result Performing Organization Address [facility] de Phone Number [facility] [place] [address] * (ABNORMAL) POCT glucose (06/16/2022 5:52 PM CDT) Glucose, POC 328(H) 70 - 199 mg/dL [facility] Blood 06/16/2022 5:52 PM CDT 06/16/2022 5:52 PM CDT Catherine Adams MD LAB POCT ORDERABLES - DEVIC E Final Result Performing Organization Address [facility] [place] [address] * (ABNORMAL) aPTT (06/16/2022 4:49 PM CDT) aPTT 58(H) 27 - 37 sec [facility] Comment: Interpretive Data Therapeutic heparin range: 60.0 - 94.0 seconds. Based on correlation with therapeutic heparin activity range of 0.3-0.7 Units/mL. Current interpretive data was last revised on 2020. Blood 06/16/2022 4:49 PM CDT 06/16/2022 4:55 PM CDT Narrative [facility] - 06/16/2022 5:35 PM CDT Draw STAT [...] BLOOD ORDERABLES Final Result Performing Organization Address City/[facility]/ZIP Co de Phone Number [facility] [place] [place] [address] * (ABNORMAL) POCT glucose (06/16/2022 4:41 PM CDT) Glucose, POC 305(H) 70 - 199 mg/dL [facility] Blood 06/16/2022 4:41 PM CDT 06/16/2022 4:41 PM CDT Catherine Adams MD LAB POCT ORDERABLES - DEVIC E Final Result Performing Organization Address [facility] Co de Phone Number [facility] [place] [address] * (ABNORMAL) Blood gas, arterial (06/16/2022 3:31 PM CDT) pH, Art 7.41 7.35 - 7.45 [facility] PCO2, Arterial 36 35 - 45 mmHg [facility] PO2, Arterial 82(L) 83 - 108 mmHg [facility] HCO3 Art (Calculated) 23 20 - 30 mmol/L [facility] BE, art -1 mmol/L [facility] Comment: Interpretive Data No Reference Range Established Current Interpretive Data was last revised on 2017 O2 Sat Art (Measured) 96(H) 90 - 95 % [facility] Blood 06/16/2022 3:31 PM CDT 06/16/2022 3:38 PM CDT Marcelina Lo OPTICAL INSTRUMENT INSPECTOR LAB BLOOD ORDERABLES Final Re sult Performing Organization Address [facility] de Phone Number [facility] [place] [address] * (ABNORMAL) POCT glucose (06/16/2022 3:27 PM CDT) Glucose, POC 316(H) 70 - 199 mg/dL [facility] Blood 06/16/2022 3:27 PM CDT 06/16/2022 3:27 PM CDT Catherine Adams MD LAB POCT ORDERABLES - DEVIC E Final Result Performing Organization Address [facility] de Phone Number [facility] [place] [address] * (ABNORMAL) POCT glucose (06/16/2022 1:00 PM CDT) Glucose, POC 327(H) 70 - 199 mg/dL [facility] Blood 06/16/2022 1:00 PM CDT 06/16/2022 1:00 PM CDT Catherine Adams MD LAB POCT ORDERABLES - DEVIC E Final Result Performing Organization Address [facility] de Phone Number [facility] [place] [address] * (ABNORMAL) eGFR (06/16/2022 12:57 PM CDT) eGFR 15(L) 90 - 130 mL/min/1. 73 m2 [facility] Comment: Interpretive Data Reference Interval Normal [...] Adams MD LAB BLOOD ORDERABLES Final Result [facility] Department of Laboratories [place] [address] * (ABNORMAL) Basic metabolic panel (06/16/2022 12:57 PM CDT) Sodium 137 135 - 145 mmol/L [facility] Potassium, pl 3.9 3.3 - 4.9 mmol/L [facility] Chloride 101 97 - 110 mmol/L [facility] CO2 26 22 - 32 mmol/L [facility] Anion gap 10 2 - 15 mmol/L [facility] BUN 33(H) 8 - 25 mg/dL [facility] Creatinine 4.34(H) 0.80 - 1.30 mg/dL [facility] Glucose 340(H) 70 - 199 mg/dL [facility] Comment: Interpretive Data Fasting glucose >/= [...] 2017. Calcium 9.0 8.5 - 10.3 mg/dL [facility] Blood 06/16/2022 12:5 7 PM CDT 06/16/2022 2:29 PM CDT us Catherine Adams MD LAB BLOOD ORDERABLES Final Result Performing Organization Address [facility] [place] de Phone Number [facility] [place] [address] * (ABNORMAL) Blood gas, arterial (06/16/2022 10:54 AM CDT) pH, Art 7.40 7.35 - 7.45 [facility] PCO2, Arterial 38 35 - 45 mmHg [facility] PO2, Arterial 66(L) 83 - 108 mmHg [facility] HCO3 Art (Calculated) 24 20 - 30 mmol/L [facility] BE, art -1 mmol/L [facility] Comment: Interpretive Data No Reference Range Established Current Interpretive Data was last revised on 2017 O2 Sat Art (Measured) 92 90 - 95 % [facility] Blood 06/16/2022 10:5 4 AM CDT 06/16/2022 11:01 AM CDT us Marcelina Lo NP LAB BLOOD ORDERABLES Final Re sult Performing Organization Address [facility] [place] Co de Phone Number [facility] [place] [address] * (ABNORMAL) POCT glucose (06/16/2022 10:50 AM CDT) [facility] Glucose, POC 393(H) 70 - 199 mg/dL [facility] Blood 06/16/2022 10:5 0 AM CDT 06/16/2022 10:50 AM CDT Catherine Adams MD LAB POCT ORDERABLES - DEVIC E Final Result Performing Organization Address [facility] [place]/[facility]/[place] [address] * (ABNORMAL) aPTT (06/16/2022 9:14 AM CDT) [facility] aPTT 54(H) 27 - 37 sec [facility] Comment: Interpretive Data Therapeutic heparin range: 60.0 - 94.0 seconds. Based on correlation with therapeutic heparin activity range of 0.3-0.7 Units/mL. Current interpretive data was last revised on 2020. Blood 06/16/2022 9:14 AM CDT 06/16/2022 9:33 AM CDT Narrative [facility] - 06/16/2022 9:58 AM CDT Draw STAT [...] BLOOD ORDERABLES Final Result Performing Organization Address City/[facility]/ZIP Co de Phone Number [facility] [place] [address] * Beta-hydroxybutyrate (06/16/2022 7:54 AM CDT) Beta-Hydroxybut yrate 0.1 0.0 - 0.5 mmol/L [facility] Blood 06/16/2022 7:54 AM CDT 06/16/2022 8:10 AM CDT Catherine Adams MD LAB BLOOD ORDERABLES Final Result [facility] [place] [address] * (ABNORMAL) eGFR (06/16/2022 7:54 AM CDT) Pathologist [facility] eGFR 16(L) 90 - 130 mL/min/1. 73 m2 [facility] Comment: Interpretive Data Reference Interval Normal [...] 06/16/2022 8:06 AM CDT us Marcelina Lo OPTICAL INSTRUMENT INSPECTOR LAB BLOOD ORDERABLES Final Re sult [facility] [place] [address] * (ABNORMAL) Differential, auto (06/16/2022 7:54 AM CDT) Neutrophil abs 6.3 1.7 - 6.5 K/cumm [facility] Imm gran abs 0.4(H) 0.0 - 0.1 K/cumm [facility] Lymphocyte abs 1.0 0.8 - 3.3 K/cumm [facility] Monocyte abs 1.2(H) 0.2 - 0.8 K/cumm [facility] Eosinophil abs 0.2 0.0 - 0.5 K/cumm [facility] Basophil abs 0.0 0.0 - 0.1 K/cumm [facility] Neutrophil pct 69.4 % [facility] Comment: Interpretive Data Percent cell count reference ranges are not reported, since discordance with absolute values may lead to misinterpretation of CBC data. Current Interpretive Data was last revised on 2017. Imm gran pct 4.3 % [facility] Comment: Interpretive Data Percent cell count reference ranges are not reported, since discordance with absolute values may lead to misinterpretation of CBC data. Current Interpretive Data was last revised on 2017. Lymphocyte pct 11.0 % [facility] Comment: Interpretive Data Percent cell count reference ranges are not reported, since discordance with absolute values may lead to misinterpretation of CBC data. Current Interpretive Data was last revised on 2017. Monocyte pct 13.3 % [facility] Comment: Interpretive Data Percent cell count reference ranges are not reported, since discordance with absolute values may lead to misinterpretation of CBC data. Current Interpretive Data was last revised on 2017. Eosinophil pct 1.7 % [facility] Comment: Interpretive Data Percent cell count reference ranges are not reported, since discordance with absolute values may lead to misinterpretation of CBC data. Current Interpretive Data was last revised on 2017. Basophil pct 0.3 % [facility] Comment: Interpretive Data Percent cell count reference ranges are not reported, since discordance with absolute values may lead to misinterpretation of CBC data. Current Interpretive Data was last revised on 2017. Blood 06/16/2022 7:54 AM CDT 06/16/2022 8:06 AM CDT Marcelina Lo OPTICAL INSTRUMENT INSPECTOR LAB BLOOD ORDERABLES Final Re sult Performing Organization Address [facility] [place] Co de Phone Number [facility] [place] [address] * (ABNORMAL) Blood gas, arterial (06/16/2022 7:54 AM CDT) pH, Art 7.44 7.35 - 7.45 [facility] PCO2, Arterial 35 35 - 45 mmHg [facility] PO2, Arterial 58(L) 83 - 108 mmHg [facility] HCO3 Art (Calculated) 25 20 - 30 mmol/L [facility] BE, art 0 mmol/L [facility] Comment: Interpretive Data No Reference Range Established Current Interpretive Data was last revised on 2017 O2 Sat Art (Measured) 90 90 - 95 % [facility] Blood 06/16/2022 7:54 AM CDT 06/16/2022 8:01 AM CDT Catherine Adams MD LAB BLOOD ORDERABLES Final Result Performing Organization Address [facility] [place] Co de Phone Number [facility] [place] [address] * (ABNORMAL) Magnesium (06/16/2022 7:54 AM CDT) Magnesium 2.9(H) 1.4 - 2.5 mg/dL [facility] Blood 06/16/2022 7:54 AM CDT 06/16/2022 8:06 AM CDT Marcelina Lo OPTICAL INSTRUMENT INSPECTOR LAB BLOOD ORDERABLES Final Re sult [facility] [place] [address] * (ABNORMAL) Comprehensive metabolic panel (06/16/2022 7:54 AM CDT) Sodium 136 135 - 145 mmol/L [facility] Potassium, pl 4.2 3.3 - 4.9 mmol/L [facility] Chloride 100 97 - 110 mmol/L [facility] CO2 26 22 - 32 mmol/L [facility] Anion gap 10 2 - 15 mmol/L [facility] BUN 33(H) 8 - 25 mg/dL [facility] Creatinine 4.13(H) 0.80 - 1.30 mg/dL [facility] Glucose 434(H) 70 - 199 mg/dL [facility] Comment: Interpretive Data Fasting glucose >/= [...] 2017. Calcium 8.9 8.5 - 10.3 mg/dL [facility] Bilirubin, total 0.4 0.1 - 1.2 mg/dL [facility] Protein, pl 6.2(L) 6.5 - 8.5 g/dL [facility] Albumin 3.1(L) 3.5 - 5.0 g/dL [facility] Alk phos 218(H) 40 - 130 Units/L [facility] ALT 36 7 - 55 Units/L [facility] AST 42 10 - 50 Units/L [facility] Blood 06/16/2022 7:54 AM CDT 06/16/2022 8:06 AM CDT Marcelina Lo OPTICAL INSTRUMENT INSPECTOR LAB BLOOD ORDERABLES Final Re sult Performing Organization Address [facility] [place] Co de Phone Number [facility] [place] [address] * (ABNORMAL) CBC with auto differential (06/16/2022 7:54 AM CDT) WBC 9.1 3.8 - 9.9 K/cumm [facility] Hgb 7.5(L) 13.0 - 17.5 g/dL [facility] Hct 22.8(L) 38.9 - 50.3 % [facility] Plt 214 150 - 400 K/cumm [facility] MPV 10.1 9.1 - 12.3 fL [facility] RBC 2.42(L) 4.30 - 5.80 M/cumm [facility] MCV 94.2 81.3 - 96.4 fL [facility] MCH 31.0 27.1 - 33.3 pg [facility] MCHC 32.9 32.3 - 35.7 g/dL [facility] RDW CV 14.6 11.1 - 14.9 % [facility] RDW SD 46.9 35.7 - 48.1 fL [facility] NRBC abs 0.02(H) 0.00 - 0.01 K/cumm [facility] Blood 06/16/2022 7:54 AM CDT 06/16/2022 8:06 AM CDT Marcelina Lo OPTICAL INSTRUMENT INSPECTOR LAB BLOOD ORDERABLES Final Re sult [facility] [place], [place] [id number] * (ABNORMAL) POCT glucose (06/16/2022 7:52 AM CDT) Glucose, POC 408(H) 70 - 199 mg/dL [facility] Blood 06/16/2022 7:52 AM CDT 06/16/2022 7:52 AM CDT Catherine Adams MD LAB POCT ORDERABLES - DEVIC E Final Result Performing Organization Address City/[facility] Co de Phone Number [facility] [place] [address] * (ABNORMAL) POCT glucose (06/16/2022 4:52 AM CDT) Glucose, POC 425(H) 70 - 199 mg/dL [facility] Blood 06/16/2022 4:52 AM CDT 06/16/2022 4:52 AM CDT Catherine Adams MD LAB POCT ORDERABLES - DEVIC E Final Result Performing Organization Address [facility] [place] de Phone Number [facility] [place] [address] * XR Chest 1 View (06/16/2022 4:43 AM CDT) Anatomical Region Laterality Modality Body, Chest N/A Computed Radiogr aphy 06/16/2022 9:29 AM CDT Impressions 06/16/2022 11:17 AM CDT Comparison is made to 06/15/2022. Endotracheal tube tip is difficult to see but likely terminates approximately 6.4 cm above the boni. Gastric tube terminates below left diaphragm and out of the [id number]. There are small lung volumes. Airspace opacity [...] below left diaphragm and out of the [id number]. There are small lung volumes. Airspace opacity [...] Glucose, POC 239(H) 70 - 199 mg/dL [facility] Blood 06/16/2022 12:0 1 AM CDT 06/16/2022 12:01 AM CDT Catherine Adams MD LAB POCT ORDERABLES - DEVIC E Final Result [facility] [place] [address] * (ABNORMAL) aPTT (06/16/2022 12:01 AM CDT) aPTT 53(H) 27 - 37 sec [facility] Comment: Interpretive Data Therapeutic heparin range: 60.0 - 94.0 seconds. Based on correlation with therapeutic heparin activity range of 0.3-0.7 Units/mL. Current interpretive data was last revised on 2020. Blood 06/16/2022 12:0 1 AM CDT 06/16/2022 12:14 AM CDT Narrative [facility] - 06/16/2022 12:36 AM CDT Draw STAT PTT 6 hrs after initiation of heparin infusion, draw STAT PTT 6 hours after each dose/rate change, and every 6 hours until 2 consecutive PTTs are within therapeutic range. Once two consecutive PTT's are therapeutic (60-94.9 seconds), then draw PTT every AM until heparin is discontinued. Catherine Adams MD LAB BLOOD ORDERABLES Final Result [facility] [place] [address] * (ABNORMAL) CBC without differential (06/16/2022 12:01 AM CDT) WBC 11.1(H) 3.8 - 9.9 K/cumm [facility] Hgb 7.4(L) 13.0 - 17.5 g/dL [facility] Hct 22.6(L) 38.9 - 50.3 % [facility] Plt 215 150 - 400 K/cumm [facility] MPV 10.3 9.1 - 12.3 fL [facility] RBC 2.38(L) 4.30 - 5.80 M/cumm [facility] MCV 95.0 81.3 - 96.4 fL [facility] MCH 31.1 27.1 - 33.3 pg [facility] MCHC 32.7 32.3 - 35.7 g/dL [facility] RDW CV 14.4 11.1 - 14.9 % [facility] RDW SD 46.4 35.7 - 48.1 fL [facility] NRBC abs 0.05(H) 0.00 - 0.01 K/cumm [facility] Blood 06/16/2022 12:0 1 AM CDT 06/16/2022 12:22 AM CDT Narrative [facility] - 06/16/2022 12:29 AM CDT While on heparin infusion Catherine Adams MD LAB BLOOD ORDERABLES Final Result [facility] [place] [address] * (ABNORMAL) eGFR (06/15/2022 8:51 PM CDT) [facility] eGFR 17(L) 90 - 130 mL/min/1. 73 [...] 06/15/2022 9:34 PM CDT us Marcelina Lo OPTICAL INSTRUMENT INSPECTOR LAB BLOOD ORDERABLES Final Re sult [facility] [place] [address] * (ABNORMAL) Differential, auto (06/15/2022 8:51 PM CDT) [facility] Neutrophil abs 8.6(H) 1.7 - 6.5 K/cumm [facility] Imm gran abs 0.8(H) 0.0 - 0.1 K/cumm [facility] Lymphocyte abs 1.4 0.8 - 3.3 K/cumm [facility] Monocyte abs 1.7(H) 0.2 - 0.8 K/cumm [facility] Eosinophil abs 0.2 0.0 - 0.5 K/cumm [facility] Basophil abs 0.0 0.0 - 0.1 K/cumm [facility] Neutrophil pct 67.7 % [facility] Comment: Interpretive Data Percent cell count reference ranges are not reported, since discordance with absolute values may lead to misinterpretation of CBC data. Current Interpretive Data was last revised on 2017. Imm gran pct 6.1 % [facility] Comment: Interpretive Data Percent cell count reference ranges are not reported, since discordance with absolute values may lead to misinterpretation of CBC data. Current Interpretive Data was last revised on 2017. Lymphocyte pct 11.2 % [facility] Comment: Interpretive Data Percent cell count reference ranges are not reported, since discordance with absolute values may lead to misinterpretation of CBC data. Current Interpretive Data was last revised on 2017. Monocyte pct 13.3 % [facility] Comment: Interpretive Data Percent cell count reference ranges are not reported, since discordance with absolute values may lead to misinterpretation of CBC data. Current Interpretive Data was last revised on 2017. Eosinophil pct 1.5 % [facility] Comment: Interpretive Data Percent cell count reference ranges are not reported, since discordance with absolute values may lead to misinterpretation of CBC data. Current Interpretive Data was last revised on 2017. Basophil pct 0.2 % [facility] Comment: Interpretive Data Percent cell count reference ranges are not reported, since discordance with absolute values may lead to misinterpretation of CBC data. Current Interpretive Data was last revised on 2017. Blood 06/15/2022 8:51 PM CDT 06/15/2022 9:34 PM CDT us Marcelina Lo OPTICAL INSTRUMENT INSPECTOR LAB BLOOD ORDERABLES Final Re sult Performing Organization Address [facility] [place] Co de Phone Number [facility] [place] [address] * (ABNORMAL) Triglycerides (06/15/2022 8:51 PM CDT) Pathologist [facility] Triglycerides 227(H) <=149 mg/dL [facility] Comment: Interpretive Data Ages < or [...] PM CDT 06/15/2022 9:33 PM CDT Narrative [facility] - 06/15/2022 10:00 PM CDT While on propofol infusion. Catherine Adams MD LAB BLOOD ORDERABLES Final Result Performing Organization Address [facility] [place] Co de Phone Number [facility] [place] [address] * (ABNORMAL) Phosphorus (06/15/2022 8:51 PM CDT) Pathologist [facility] Phosphorus, pl 5.0(H) 2.3 - 4.5 mg/dL [facility] Blood 06/15/2022 8:51 PM CDT 06/15/2022 9:33 PM CDT Marcelina Lo OPTICAL INSTRUMENT INSPECTOR LAB BLOOD ORDERABLES Final Re sult Performing Organization Address City/[facility]/ZIP Co de Phone Number [facility] [place] [address] * Beta-hydroxybutyrate (06/15/2022 8:51 PM CDT) Pathologist [facility] Beta-Hydroxybut yrate 0.2 0.0 - 0.5 mmol/L [facility] Blood 06/15/2022 8:51 PM CDT 06/15/2022 9:26 PM CDT Marcelina Lo OPTICAL INSTRUMENT INSPECTOR LAB BLOOD ORDERABLES Edited R esult - Final Performing Organization Address [facility] [place]/[facility]/ZIP Co de Phone Number [facility] [place] [address] * Lipase (06/15/2022 8:51 PM CDT) Pathologist [facility] Lipase 27 10 - 99 Units/L [facility] Blood 06/15/2022 8:51 PM CDT 06/15/2022 9:33 PM CDT Marcelina Lo OPTICAL INSTRUMENT INSPECTOR LAB BLOOD ORDERABLES Final Re sult [facility] [place] [address] * (ABNORMAL) Magnesium (06/15/2022 8:51 PM CDT) Magnesium 3.2(H) 1.4 - 2.5 mg/dL [facility] Blood 06/15/2022 8:51 PM CDT 06/15/2022 9:34 PM CDT us Marcelina Lo OPTICAL INSTRUMENT INSPECTOR LAB BLOOD ORDERABLES Final Re sult [facility] [place] [address] * (ABNORMAL) Comprehensive metabolic panel (06/15/2022 8:51 PM CDT) Sodium 137 135 - 145 mmol/L [facility] Potassium, pl 4.6 3.3 - 4.9 mmol/L [facility] Chloride 101 97 - 110 mmol/L [facility] CO2 26 22 - 32 mmol/L [facility] Anion gap 10 2 - 15 mmol/L [facility] BUN 29(H) 8 - 25 mg/dL [facility] Creatinine 3.93(H) 0.80 - 1.30 mg/dL [facility] Glucose 179 70 - 199 mg/dL [facility] Comment: Interpretive Data Fasting glucose >/= [...] Calcium 9.5 8.5 - 10.3 mg/dL [facility] Bilirubin, total 0.5 0.1 - 1.2 mg/dL [facility] Protein, pl 6.5 6.5 - 8.5 g/dL [facility] Albumin 3.0(L) 3.5 - 5.0 g/dL [facility] Alk phos 235(H) 40 - 130 Units/L [facility] ALT 36 7 - 55 Units/L [facility] AST 50 10 - 50 Units/L [facility] Blood 06/15/2022 8:51 PM CDT 06/15/2022 9:34 PM CDT us Marcelina Lo OPTICAL INSTRUMENT INSPECTOR LAB BLOOD ORDERABLES Final Re sult Performing Organization Address [facility] [place] Co de Phone Number [facility] [place] [address] * (ABNORMAL) CBC with auto differential (06/15/2022 8:51 PM CDT) [facility] WBC 12.7(H) 3.8 - 9.9 K/cumm [facility] Hgb 7.2(L) 13.0 - 17.5 g/dL [facility] Hct 21.9(L) 38.9 - 50.3 % [facility] Plt 204 150 - 400 K/cumm [facility] MPV 10.4 9.1 - 12.3 fL [facility] RBC 2.30(L) 4.30 - 5.80 M/cumm [facility] MCV 95.2 81.3 - 96.4 fL [facility] MCH 31.3 27.1 - 33.3 pg [facility] MCHC 32.9 32.3 - 35.7 g/dL [facility] RDW CV 14.6 11.1 - 14.9 % [facility] RDW SD 47.4 35.7 - 48.1 fL [facility] NRBC abs 0.05(H) 0.00 - 0.01 K/cumm [facility] Blood 06/15/2022 8:51 PM CDT 06/15/2022 9:34 PM CDT us Marcelina Lo OPTICAL INSTRUMENT INSPECTOR LAB BLOOD ORDERABLES Final Re sult Performing Organization Address [facility] [place]/[facility]/ZIP Co de Phone Number [facility] [place] [address] * POCT glucose (06/15/2022 8:49 PM CDT) Glucose, POC 183 70 - 199 mg/dL [facility] Blood 06/15/2022 8:49 PM CDT 06/15/2022 8:49 PM CDT Catherine Adams MD LAB POCT ORDERABLES - DEVIC E Final Result Performing Organization Address [facility] [place] Co de Phone Number [facility] [place] [address] * C. difficile testing Stool (06/15/2022 6:15 PM CDT) C. diff result Negative, free toxin Negative , free toxin [facility] C. diff interp Negative for toxigenic Clostridioides (Clostridium) difficile. Analysis was performed using a glutatmate dehydrogenase antigen detection assay combined with a C. difficile toxin detection assay. [facility] Stool 06/15/2022 6:15 PM CDT 06/15/2022 8:14 PM CDT Narrative [facility] - 06/15/2022 11:02 PM CDT Testing for C. difficile is not recommended within 4 days of a negative result, 10 days of a positive, or 24 hours after laxative administration. If this order is clinically indicated, contact the lab and enter the passcode to complete this order.->[id number] Catherine Adams MD LAB MICROBIOLOGY - GENERAL ORDERABLES Final Result Performing Organization Address [facility] [place] de Phone Number [facility] [place] [address] * VRE culture, surveillance Stool (06/15/2022 6:14 PM CDT) Report Final Report: Negative [facility] Stool 06/15/2022 6:14 PM CDT 06/15/2022 11:04 PM CDT Narrative [facility] - 06/18/2022 1:29 PM CDT Testing performed by [facility] ([phone]). us Catherine Adams MD LAB MICROBIOLOGY - GENERAL ORDERABLES Final Result Performing Organization Address City/[facility]/ZIP Co de Phone Number [facility] [place] [address] * (ABNORMAL) POCT glucose (06/15/2022 3:21 PM CDT) Glucose, POC 260(H) 70 - 199 mg/dL [facility] Blood 06/15/2022 3:21 PM CDT 06/15/2022 3:21 PM CDT Catherine Adams MD LAB POCT ORDERABLES - DEVIC E Final Result Performing Organization Address [facility] [place] Co de Phone Number [facility] [place] [address] * (ABNORMAL) Blood gas, arterial (06/15/2022 11:21 AM CDT) Pathologist [facility] pH, Art 7.38 7.35 - 7.45 [facility] PCO2, Arterial 39 35 - 45 mmHg [facility] PO2, Arterial 100 83 - 108 mmHg [facility] HCO3 Art (Calculated) 23 20 - 30 mmol/L [facility] BE, art -2 mmol/L [facility] Comment: Interpretive Data No Reference Range Established Current Interpretive Data was last revised on 2017 O2 Sat Art (Measured) 98(H) 90 - 95 % [facility] Blood 06/15/2022 11:2 1 AM CDT 06/15/2022 11:32 AM CDT us Marcelina Lo NP LAB BLOOD ORDERABLES Final Re sult Performing Organization Address [facility] [place]/[facility]/ZIP Co de Phone Number [facility] [place] [address] * (ABNORMAL) POCT glucose (06/15/2022 11:20 AM CDT) Glucose, POC 332(H) 70 - 199 mg/dL [facility] Glucose comment 1 Glu2: RN/MD Notified [facility] Blood 06/15/2022 11:2 0 AM CDT 06/15/2022 11:20 AM CDT Catherine Adams MD LAB POCT ORDERABLES - DEVIC E Final Result [facility] [place] [address] * Respiratory pathogen panel Nasopharyngeal (06/15/2022 11:05 AM CDT) [facility] Influenza A RNA Not Detected Not Detected [facility] Influenza B RNA Not Detected Not Detected [facility] RSV RNA Not Detected Not Detected [facility] COVID-19 RNA Not Detected Not Detected [facility] Coronavirus 229E RNA Not Detected Not Detected [facility] Coronavirus HKU1 RNA Not Detected Not Detected [facility] Coronavirus NL63 RNA Not Detected Not Detected [facility] Coronavirus OC43 RNA Not Detected Not Detected [facility] Adenovirus DNA Not Detected Not Detected [facility] Metapneumovirus RNA Not Detected Not Detected [facility] Rhinovirus/Enterov irus RNA Not Detected Not Detected [facility] Parainfluenza 1 RNA Not Detected Not Detected [facility] Parainfluenza 2 RNA Not Detected Not Detected [facility] Parainfluenza 3 RNA Not Detected Not Detected [facility] Parainfluenza 4 RNA Not Detected Not Detected [facility] B. pertussis DNA Not Detected Not Detected [facility] B. parapertussis DNA Not Detected Not Detected [facility] C. pneumoniae DNA Not Detected Not Detected [facility] M. pneumoniae DNA Not Detected Not Detected [facility] Nasopharyngeal 06/15/2022 11 :05 AM CDT 06/15/2022 11:19 AM CDT Narrative [facility] - 06/15/2022 1:02 PM CDT Is the Patient experiencing symptoms consistent with COVID?->Unknown Reason for testing?->Symptomatic Surveillance testing for transplant patient?->No ??Interpretive Data The writewith FilmArray Respiratory Panel (RP2.1) assay is a [...] assay has FDA clearance for testing of OPTICAL INSTRUMENT INSPECTOR swabs. ??The performance of additional specimen types has been assessed by the performing laboratory. ??The performance characteristics of this assay have been determined by [facility] Infectious Disease Laboratory. Current interpretive data was last revised on 22. Catherine Adams MD LAB MICROBIOLOGY - GENERAL ORDERABLES Final Result [facility] [place] [address] * US Vein Duplex Lower Extremity Bilateral Complete (06/15/2022 11:00 AM CDT) Anatomical Region Laterality Modality Vascular Bilateral Ultrasound 06/15/2022 10:2 9 AM CDT Narrative 06/15/2022 12:34 PM CDT [facility] - Department of Vascular Surgery, Vascular Laboratory [address] [place] [id number] Lower Extremity Venous Ultrasound Report Patient Name: ADELIA GARVIN C : 1970 (51y 9m) Study Date: 06/15/2022 10:29:44 AM Gender: M Tech: Location: [id number] Ref.Provider: CATHERINE ADAMS Quality: Adequate Order Provider: CATHERINE ADAMS Procedures: Vascular Report: Venous Duplex imaging was performed bilaterally in the lower extremities. The common femoral, femoral, popliteal, posterior tibial, peroneal veins were evaluated for patency, spontaneity and phasicity with Doppler, compression and augmentation maneuvers. Great saphenous vein proximal at the junction was evaluated with compression maneuvers. Indications: Localized edema. Findings: Performing Forming Press Operator: Faye Zheng RVT, NAN. Bilateral: Venous Doppler [...] performed. Electronically Signed By: Jase Mendez MD [facility] 2022-06-15 12:34:44 CDT CC: CC: Procedure Note Jase Mendez MD - 06/15/2022 [facility] - Department of Vascular Surgery,Vascular Laboratory [address] [place] [address] Lower Extremity Venous Ultrasound Report Patient Name: ADELIA GARVIN CPatient ID: [id number] : 1970 (51y 9m)Study Date: 06/15/2022 10:29:44 AM Gender: MAccession #: [id number] Tech: CDLocation: [id number] Ref.Provider: Leandro ADAMSality: Adequate Order Provider: Ramez ADAMS #: [id number] Procedures: Vascular Report: Venous Duplex imaging was performed bilaterally in the lower extremities.The common femoral, femoral, popliteal, posterior tibial, peroneal veins wereevaluated for patency, spontaneity and phasicity with Doppler, compression and augmentationmaneuvers. Great saphenous vein proximal at the junction was evaluated with compressionmaneuvers. Indications: Localized edema. Findings: Performing Forming Press Operator: Faye Zheng RVT, RDMS. Bilateral: Venous [...] performed. Electronically Signed By: Jase Mendez MD [facility] 2022-06-15 12:34:44 CDT CC: CC: Result [facility] Catherine Adams MD IMG US PROCEDURES Final Res ult * (ABNORMAL) POCT glucose (06/15/2022 8:21 AM CDT) Glucose, POC 260(H) 70 - 199 mg/dL [facility] Blood 06/15/2022 8:21 AM CDT 06/15/2022 8:21 AM CDT Result [facility] Catherine Adams MD LAB POCT ORDERABLES - DEVIC E Final Result Performing Organization Address [facility] Co de Phone Number [facility] [place] [address] * Oxyhemoglobin, central venous (06/15/2022 8:11 AM CDT) Oxyhemoglobin, CV 66.6 % [facility] Comment: Interpretive Data No reference range established. Current interpretive data was last revised 2019. Blood 06/15/2022 8:11 AM CDT 06/15/2022 8:25 AM CDT Result [facility] Catherine Adams MD LAB BLOOD ORDERABLES Final Result Performing Organization Address [facility] Co de Phone Number [facility] [place] [address] * (ABNORMAL) aPTT (06/15/2022 8:11 AM CDT) aPTT 60(H) 27 - 37 sec [facility] Comment: Interpretive Data Therapeutic heparin range: [...] Adams MD LAB BLOOD ORDERABLES Final Result [facility] [place] [address] * (ABNORMAL) eGFR (06/15/2022 8:06 AM CDT) eGFR 27(L) 90 - 130 mL/min/1. 73 m2 [facility] Comment: Interpretive Data Reference Interval Normal [...] 06/15/2022 8:50 AM CDT us Marcelina Lo OPTICAL INSTRUMENT INSPECTOR LAB BLOOD ORDERABLES Final Re sult [facility] [place] [address] * (ABNORMAL) Differential, auto (06/15/2022 8:06 AM CDT) Neutrophil abs 9.0(H) 1.7 - 6.5 K/cumm [facility] Imm gran abs 1.0(H) 0.0 - 0.1 K/cumm [facility] Lymphocyte abs 1.6 0.8 - 3.3 K/cumm [facility] Monocyte abs 1.5(H) 0.2 - 0.8 K/cumm [facility] Eosinophil abs 0.2 0.0 - 0.5 K/cumm [facility] Basophil abs 0.1 0.0 - 0.1 K/cumm [facility] Neutrophil pct 67.6 % [facility] Comment: Interpretive Data Percent cell count reference ranges are not reported, since discordance with absolute values may lead to misinterpretation of CBC data. Current Interpretive Data was last revised on 2017. Imm gran pct 7.4 % [facility] Comment: Interpretive Data Percent cell count reference ranges are not reported, since discordance with absolute values may lead to misinterpretation of CBC data. Current Interpretive Data was last revised on 2017. Lymphocyte pct 11.8 % [facility] Comment: Interpretive Data Percent cell count reference ranges are not reported, since discordance with absolute values may lead to misinterpretation of CBC data. Current Interpretive Data was last revised on 2017. Monocyte pct 11.2 % [facility] Comment: Interpretive Data Percent cell count reference ranges are not reported, since discordance with absolute values may lead to misinterpretation of CBC data. Current Interpretive Data was last revised on 2017. Eosinophil pct 1.5 % [facility] Comment: Interpretive Data Percent cell count reference ranges are not reported, since discordance with absolute values may lead to misinterpretation of CBC data. Current Interpretive Data was last revised on 2017. Basophil pct 0.5 % [facility] Comment: Interpretive Data Percent cell count reference ranges are not reported, since discordance with absolute values may lead to misinterpretation of CBC data. Current Interpretive Data was last revised on 2017. Blood 06/15/2022 8:06 AM CDT 06/15/2022 8:50 AM CDT us Marcelina Lo OPTICAL INSTRUMENT INSPECTOR LAB BLOOD ORDERABLES Final Re sult [facility] [place] [address] * Blood culture Blood Arm, right (06/15/2022 8:06 AM CDT) Report Final Report: No growth [facility] Blood (Arm, right) 06/15/2022 8:06 AM CDT [...] organism identification may be performed using the TownSquared[employer] Gram-Positive Blood Culture Assay. This assay detects microbial DNA in positive blood culture broth via hybridization of target DNA to capture oligonucleotides on a microarray. This assay has been cleared by the [place] Food and Drug Administration and its performance characteristics have been verified by the [facility] Microbiology Laboratory. 5. ?For questions about this culture, contact the Microbiology Laboratory at [phone]. Interpretive data was last revised on 2020. Catherine Adams MD LAB MICROBIOLOGY - GENERAL ORDERABLES Final Result ALESSANDRA CARRION [facility] [place] [address] * Blood culture Blood Antecubital, right (06/15/2022 [...] organism identification may be performed using the [employer] Gram-Positive Blood Culture Assay. This assay detects microbial DNA in positive blood culture broth via hybridization of target DNA to capture oligonucleotides on a microarray. This assay has been cleared by the [place] Food and Drug Administration and its performance characteristics have been verified by the [facility] Microbiology Laboratory. 5. ?For questions about this culture, contact the Microbiology Laboratory at [phone]. Interpretive data was last revised on 2020. Catherine Adams MD LAB MICROBIOLOGY - GENERAL ORDERABLES Final Result Performing Organization Address City/[facility]/ZIP Co de Phone Number [facility] [place] [address] * (ABNORMAL) Magnesium (06/15/2022 8:06 AM CDT) Pathologist [facility] Magnesium 2.8(H) 1.4 - 2.5 mg/dL [facility] Blood 06/15/2022 8:06 AM CDT 06/15/2022 8:50 AM CDT Marcelina Lo NP LAB BLOOD ORDERABLES Final Re sult Performing Organization Address [facility] Co de Phone Number [facility] [place] [employer] [place] [address] * (ABNORMAL) Comprehensive metabolic panel (06/15/2022 8:06 AM CDT) Pathologist [facility] Sodium 134(L) 135 - 145 mmol/L [facility] Potassium, pl 5.0(H) 3.3 - 4.9 mmol/L [facility] Chloride 99 97 - 110 mmol/L [facility] CO2 26 22 - 32 mmol/L [facility] Anion gap 9 2 - 15 mmol/L [facility] BUN 21 8 - 25 mg/dL [facility] Creatinine 2.73(H) 0.80 - 1.30 mg/dL [facility] Glucose 273(H) 70 - 199 mg/dL [facility] Comment: Interpretive Data Fasting glucose >/= [...] 2017. Calcium 8.8 8.5 - 10.3 mg/dL [facility] Bilirubin, total 0.5 0.1 - 1.2 mg/dL [facility] Protein, pl 6.2(L) 6.5 - 8.5 g/dL [facility] Albumin 2.7(L) 3.5 - 5.0 g/dL [facility] Alk phos 256(H) 40 - 130 Units/L [facility] ALT 44 7 - 55 Units/L [facility] AST 61(H) 10 - 50 Units/L [facility] Blood 06/15/2022 8:06 AM CDT 06/15/2022 8:50 AM CDT us Marcelina Lo OPTICAL INSTRUMENT INSPECTOR LAB BLOOD ORDERABLES Final Re sult [facility] [place] [address] * (ABNORMAL) CBC with auto differential (06/15/2022 8:06 AM CDT) Pathologist [facility] WBC 13.2(H) 3.8 - 9.9 K/cumm [facility] Hgb 7.7(L) 13.0 - 17.5 g/dL [facility] Hct 24.1(L) 38.9 - 50.3 % [facility] Plt 228 150 - 400 K/cumm [facility] MPV 10.6 9.1 - 12.3 fL [facility] RBC 2.45(L) 4.30 - 5.80 M/cumm [facility] MCV 98.4(H) 81.3 - 96.4 fL [facility] MCH 31.4 27.1 - 33.3 pg [facility] MCHC 32.0(L) 32.3 - 35.7 g/dL [facility] RDW CV 14.5 11.1 - 14.9 % [facility] RDW SD 49.6(H) 35.7 - 48.1 fL [facility] NRBC abs 0.11(H) 0.00 - 0.01 K/cumm [facility] Blood 06/15/2022 8:06 AM CDT 06/15/2022 8:50 AM CDT us Marcelina Lo NP LAB BLOOD ORDERABLES Final Re sult [facility] [place] [address] * XR Chest 1 View (06/15/2022 5:21 AM CDT) Anatomical Region Laterality Modality Body, Chest N/A Computed Radiogr aphy 06/15/2022 8:52 AM CDT Impressions 06/15/2022 9:21 AM CDT Comparison is made to 06/14/2022. Endotracheal tube terminates near the thoracic inlet, approximately 7 cm above the boni. Recommend advancement. Gastric tube terminates below left hemidiaphragm out of the [id number]. A left internal jugular central venous catheter [...] terminates below left hemidiaphragm out of the [id number]. A left internal jugular central venous catheter [...] Glucose, POC 264(H) 70 - 199 mg/dL [facility] Blood 06/15/2022 3:37 AM CDT 06/15/2022 3:37 AM CDT Catherine Adams MD LAB POCT ORDERABLES - DEVIC E Final Result Performing Organization Address City/[facility]/ZIP Co de Phone Number [facility] [place] [address] * Lactate, whole blood (06/15/2022 3:37 AM CDT) [facility] Signature Lactate, bld 0.8 0.7 - 2.0 mmol/L [facility] Blood 06/15/2022 3:37 AM CDT 06/15/2022 3:46 AM CDT Marcelina Lo NP LAB BLOOD ORDERABLES Final Re sult Performing Organization Address City/[facility]/ZIP Co de Phone Number [facility] [place] [address] * (ABNORMAL) Blood gas, arterial (06/15/2022 3:37 AM CDT) Pathologist [facility] pH, Art 7.36 7.35 - 7.45 [facility] PCO2, Arterial 41 35 - 45 mmHg [facility] PO2, Arterial 64(L) 83 - 108 mmHg [facility] HCO3 Art (Calculated) 24 20 - 30 mmol/L [facility] BE, art -2 mmol/L [facility] Comment: Interpretive Data No Reference Range Established Current Interpretive Data was last revised on 2017 O2 Sat Art (Measured) 92 90 - 95 % [facility] Blood 06/15/2022 3:37 AM CDT 06/15/2022 3:46 AM CDT us Marcelina Lo OPTICAL INSTRUMENT INSPECTOR LAB BLOOD ORDERABLES Final Re sult [facility] [place] [address] * Pneumonia PCR Tracheal aspirate (06/15/2022 1:53 AM CDT) [facility] C. pneumoniae DNA Not Detected Not Detected [facility] Legionella pneumophila DNA Not Detected Not Detected [facility] M. pneumoniae DNA Not Detected Not Detected [facility] Adenovirus DNA Not Detected Not Detected [facility] Coronavirus (229E, OC43, HKU1, NL63) RNA Not Detected Not Detected [facility] Metapneumovirus RNA Not Detected Not Detected [facility] Rhinovirus/Enterov irus RNA Not Detected Not Detected [facility] Influenza A RNA Not Detected Not Detected [facility] Influenza B RNA Not Detected Not Detected [facility] Parainfluenza virus (1-4) RNA Not Detected Not Detected [facility] RSV RNA Not Detected Not Detected [facility] Tracheal aspirate 06/15/2022 1:53 AM CDT 06/15/2022 4:22 AM CDT Narrative [facility] - 06/15/2022 5:52 AM CDT The BioFire [...] rule out infection/co-infection with other organisms. The IncreaseCardFire Pneumonia Panel is FDA cleared for lower respiratory tract specimens. The performance characteristics of this assay have been determined by [facility] Clinical Laboratory. Current interpretive data was last revised on 2021. Catherine Adams MD LAB MICROBIOLOGY - GENERAL ORDERABLES Final Result [facility] [place] [address] * Pneumonia PCR with aerobic culture and Gram stain Tracheal aspirate (06/15/2022 1:53 AM CDT) Direct Specimen Exam Molecular Analysis: Rapid molecular analysis has NOT detected bacterial targets (for a list of targets evaluated, refer to the interpretive data for this specimen). Correlation of molecular analysis with culture results is recommended. [facility] Direct Specimen Exam Stain: Few polymorphonuclear leukocytes seen. Few squamous epithelial cells seen. Few mixed bacterial stone seen on Gram stain. [facility] Report Final Report: Insignificant growth based on current clinical standards. [facility] Tracheal aspirate 06/15/2022 1:53 AM CDT 06/15/2022 3:09 AM CDT Narrative [facility] - 06/17/2022 10:03 AM CDT When rapid molecular testing results are reported, testing completed using the iSquareArray Pneumonia Panel. ??This molecular assay detects: Acinetobacter [...] performance characteristics have been confirmed by the [facility] Laboratory. ??The performance of the FilmArray Pneumonia Panel has not been established for monitoring treatment of infection and bacterial nucleic acids may persist independent of organism viability. us Catherine Adams MD LAB MICROBIOLOGY - GENERAL ORDERABLES Final Result [facility] [place] [address] * (ABNORMAL) Blood gas, arterial (06/14/2022 11:53 PM CDT) pH, Art 7.36 7.35 - 7.45 [facility] PCO2, Arterial 43 35 - 45 mmHg [facility] PO2, Arterial 77(L) 83 - 108 mmHg [facility] HCO3 Art (Calculated) 25 20 - 30 mmol/L [facility] BE, art -1 mmol/L [facility] Comment: Interpretive Data No Reference Range Established Current Interpretive Data was last revised on 2017 O2 Sat Art (Measured) 94 90 - 95 % [facility] Blood 06/14/2022 11:5 3 PM CDT 06/14/2022 11:59 PM CDT us Marcelina Lo OPTICAL INSTRUMENT INSPECTOR LAB BLOOD ORDERABLES Final Re sult Performing Organization Address [facility] Co de Phone Number [facility] [place] [address] * POCT glucose (06/14/2022 11:52 PM CDT) Glucose, POC 176 70 - 199 mg/dL [facility] Blood 06/14/2022 11:5 2 PM CDT 06/14/2022 11:52 PM CDT us Catherine Adams MD LAB POCT ORDERABLES - DEVIC E Final Result Performing Organization Address [facility] de Phone Number [facility] [place] [address] * (ABNORMAL) eGFR (06/14/2022 7:41 PM CDT) eGFR 35(L) 90 - 130 mL/min/1. 73 m2 [facility] Comment: Interpretive Data Reference Interval Normal [...] Adams MD LAB BLOOD ORDERABLES Final Result [facility] [place] [address] * (ABNORMAL) Differential, auto (06/14/2022 7:41 PM CDT) Neutrophil abs 9.9(H) 1.7 - 6.5 K/cumm [facility] Imm gran abs 1.5(H) 0.0 - 0.1 K/cumm [facility] Lymphocyte abs 1.7 0.8 - 3.3 K/cumm [facility] Monocyte abs 1.6(H) 0.2 - 0.8 K/cumm [facility] Eosinophil abs 0.3 0.0 - 0.5 K/cumm [facility] Basophil abs 0.0 0.0 - 0.1 K/cumm [facility] Neutrophil pct 66.0 % [facility] Comment: Interpretive Data Percent cell count reference ranges are not reported, since discordance with absolute values may lead to misinterpretation of CBC data. Current Interpretive Data was last revised on 2017. Imm gran pct 9.6 % [facility] Comment: Interpretive Data Percent cell count reference ranges are not reported, since discordance with absolute values may lead to misinterpretation of CBC data. Current Interpretive Data was last revised on 2017. Lymphocyte pct 11.2 % [facility] Comment: Interpretive Data Percent cell count reference ranges are not reported, since discordance with absolute values may lead to misinterpretation of CBC data. Current Interpretive Data was last revised on 2017. Monocyte pct 10.8 % [facility] Comment: Interpretive Data Percent cell count reference ranges are not reported, since discordance with absolute values may lead to misinterpretation of CBC data. Current Interpretive Data was last revised on 2017. Eosinophil pct 2.1 % [facility] Comment: Interpretive Data Percent cell count reference ranges are not reported, since discordance with absolute values may lead to misinterpretation of CBC data. Current Interpretive Data was last revised on 2017. Basophil pct 0.3 % [facility] Comment: Interpretive Data Percent cell count reference ranges are not reported, since discordance with absolute values may lead to misinterpretation of CBC data. Current Interpretive Data was last revised on 2017. Blood 06/14/2022 7:41 PM CDT 06/14/2022 8:01 PM CDT Catherine Adams MD LAB BLOOD ORDERABLES Final Result Performing Organization Address City/[facility]/ZIP Co de Phone Number [facility] [place] [address] * (ABNORMAL) Magnesium (06/14/2022 7:41 PM CDT) Magnesium 3.0(H) 1.4 - 2.5 mg/dL [facility] Blood 06/14/2022 7:41 PM CDT 06/14/2022 7:49 PM CDT us Catherine Adams MD LAB BLOOD ORDERABLES Final Result Performing Organization Address City/[facility]/ZIP Co de Phone Number [facility] [place] [address] * (ABNORMAL) Comprehensive metabolic panel (06/14/2022 7:41 PM CDT) Sodium 138 135 - 145 mmol/L [facility] Potassium, pl 4.7 3.3 - 4.9 mmol/L [facility] Chloride 102 97 - 110 mmol/L [facility] CO2 27 22 - 32 mmol/L [facility] Anion gap 9 2 - 15 mmol/L [facility] BUN 17 8 - 25 mg/dL [facility] Creatinine 2.22(H) 0.80 - 1.30 mg/dL [facility] Glucose 182 70 - 199 mg/dL [facility] Comment: Interpretive Data Fasting glucose >/= [...] 2017. Calcium 9.1 8.5 - 10.3 mg/dL [facility] Bilirubin, total 0.6 0.1 - 1.2 mg/dL [facility] Protein, pl 6.5 6.5 - 8.5 g/dL [facility] Albumin 3.1(L) 3.5 - 5.0 g/dL [facility] Alk phos 264(H) 40 - 130 Units/L [facility] ALT 45 7 - 55 Units/L [facility] AST 73(H) 10 - 50 Units/L [facility] Blood 06/14/2022 7:41 PM CDT 06/14/2022 7:49 PM CDT us Catherine Adams MD LAB BLOOD ORDERABLES Final Result [facility] [place] [address] * (ABNORMAL) Triglycerides (06/14/2022 7:41 PM CDT) Triglycerides 482(H) <=149 mg/dL [facility] Comment: Interpretive Data Ages < [...] PM CDT 06/14/2022 7:49 PM CDT Narrative [facility] - 06/14/2022 8:29 PM CDT While on propofol infusion. us Catherine Adams MD LAB BLOOD ORDERABLES Final Result [facility] [place] [address] * Phosphorus (06/14/2022 7:41 PM CDT) Phosphorus, pl 3.1 2.3 - 4.5 mg/dL [facility] Blood 06/14/2022 7:41 PM CDT 06/14/2022 7:49 PM CDT Marcelina Lo OPTICAL INSTRUMENT INSPECTOR LAB BLOOD ORDERABLES Final Re sult Performing Organization Address [facility] de Phone Number [facility] [place] [address] * (ABNORMAL) Beta-hydroxybutyrate (06/14/2022 7:41 PM CDT) [facility] Beta-Hydroxybut yrate 0.7(H) 0.0 - 0.5 mmol/L [facility] Blood 06/14/2022 7:41 PM CDT 06/14/2022 7:47 PM CDT Marcelina Lo OPTICAL INSTRUMENT INSPECTOR LAB BLOOD ORDERABLES Edited R esult - Final Performing Organization Address [facility] de Phone Number [facility] [place] [address] * Lipase (06/14/2022 7:41 PM CDT) [facility] Lipase 25 10 - 99 Units/L [facility] Blood 06/14/2022 7:41 PM CDT 06/14/2022 7:49 PM CDT Marcelina Lo OPTICAL INSTRUMENT INSPECTOR LAB BLOOD ORDERABLES Final Re sult Performing Organization Address [facility] de Phone Number [facility] [place] [address] * (ABNORMAL) CBC with auto differential (06/14/2022 7:41 PM CDT) [facility] WBC 15.0(H) 3.8 - 9.9 K/cumm [facility] Hgb 8.3(L) 13.0 - 17.5 g/dL [facility] Hct 24.9(L) 38.9 - 50.3 % [facility] Plt 218 150 - 400 K/cumm [facility] MPV 10.4 9.1 - 12.3 fL [facility] RBC 2.62(L) 4.30 - 5.80 M/cumm [facility] MCV 95.0 81.3 - 96.4 fL [facility] MCH 31.7 27.1 - 33.3 pg [facility] MCHC 33.3 32.3 - 35.7 g/dL [facility] RDW CV 14.1 11.1 - 14.9 % [facility] RDW SD 47.3 35.7 - 48.1 fL [facility] NRBC abs 0.08(H) 0.00 - 0.01 K/cumm [facility] Blood 06/14/2022 7:41 PM CDT 06/14/2022 8:01 PM CDT us Marcelina Lo OPTICAL INSTRUMENT INSPECTOR LAB BLOOD ORDERABLES Final Re sult Performing Organization Address City/[facility]/ZIP Co de Phone Number [facility] Department of Laboratories [place] [address] * POCT glucose (06/14/2022 7:40 PM CDT) [facility] Glucose, POC 190 70 - 199 mg/dL [facility] Blood 06/14/2022 7:40 PM CDT 06/14/2022 7:40 PM CDT Catherine Adams MD LAB POCT ORDERABLES - DEVIC E Final Result Performing Organization Address City/[facility]/ZIP Co de Phone Number [facility] [place] [address] * (ABNORMAL) Blood gas, arterial (06/14/2022 4:19 PM CDT) [facility] pH, Art 7.38 7.35 - 7.45 [facility] PCO2, Arterial 41 35 - 45 mmHg [facility] PO2, Arterial 76(L) 83 - 108 mmHg [facility] HCO3 Art (Calculated) 25 20 - 30 mmol/L [facility] BE, art -1 mmol/L [facility] Comment: Interpretive Data No Reference Range Established Current Interpretive Data was last revised on 2017 O2 Sat Art (Measured) 94 90 - 95 % [facility] Blood 06/14/2022 4:19 PM CDT 06/14/2022 4:38 PM CDT us Marcelina Lo OPTICAL INSTRUMENT INSPECTOR LAB BLOOD ORDERABLES Final Re sult Performing Organization Address City/[facility] Co de Phone Number [facility] [place] [address] * (ABNORMAL) POCT glucose (06/14/2022 4:16 PM CDT) Glucose, POC 229(H) 70 - 199 mg/dL [facility] Glucose comment 1 Glu2: RN/ Notified [facility] Blood 06/14/2022 4:16 PM CDT 06/14/2022 4:16 PM CDT us Catherine Adams MD LAB POCT ORDERABLES - DEVIC E Final Result Performing Organization Address [facility] Co de Phone Number [facility] [place] [address] * (ABNORMAL) POCT glucose (06/14/2022 11:21 AM CDT) Glucose, POC 202(H) 70 - 199 mg/dL [facility] Blood 06/14/2022 11:2 1 AM CDT 06/14/2022 11:21 AM CDT us Catherine Adams MD LAB POCT ORDERABLES - DEVIC E Final Result Performing Organization Address City/[facility]/ZIP Co de Phone Number [facility] [place] [address] * XR Chest 1 View (06/14/2022 10:56 [...] Glucose, POC 172 70 - 199 mg/dL [facility] Blood 06/14/2022 8:18 AM CDT 06/14/2022 8:18 AM CDT us Catherine Adams MD LAB POCT ORDERABLES - DEVIC E Final Result Performing Organization Address City/[facility]/ZIP Co de Phone Number ALESSANDRA CARRION [facility] [place] [address] * (ABNORMAL) eGFR (06/14/2022 8:16 AM CDT) eGFR 35(L) 90 - 130 mL/min/1. 73 m2 [facility] Comment: Interpretive Data Reference Interval [...] BLOOD ORDERABLES Final Result Performing Organization Address City/[facility]/ZIP Co de Phone Number [facility] [place] [address] * (ABNORMAL) Differential, auto (06/14/2022 8:16 AM CDT) Neutrophil abs 10.1(H) 1.7 - 6.5 K/cumm [facility] Imm gran abs 1.8(H) 0.0 - 0.1 K/cumm [facility] Lymphocyte abs 2.0 0.8 - 3.3 K/cumm [facility] Monocyte abs 1.5(H) 0.2 - 0.8 K/cumm [facility] Eosinophil abs 0.3 0.0 - 0.5 K/cumm [facility] Basophil abs 0.1 0.0 - 0.1 K/cumm [facility] Neutrophil pct 64.1 % [facility] Comment: Interpretive Data Percent cell count reference ranges are not reported, since discordance with absolute values may lead to misinterpretation of CBC data. Current Interpretive Data was last revised on 2017. Imm gran pct 11.4 % [facility] Comment: Interpretive Data Percent cell count reference ranges are not reported, since discordance with absolute values may lead to misinterpretation of CBC data. Current Interpretive Data was last revised on 2017. Lymphocyte pct 12.7 % [facility] Comment: Interpretive Data Percent cell count reference ranges are not reported, since discordance with absolute values may lead to misinterpretation of CBC data. Current Interpretive Data was last revised on 2017. Monocyte pct 9.5 % [facility] Comment: Interpretive Data Percent cell count reference ranges are not reported, since discordance with absolute values may lead to misinterpretation of CBC data. Current Interpretive Data was last revised on 2017. Eosinophil pct 1.9 % [facility] Comment: Interpretive Data Percent cell count reference ranges are not reported, since discordance with absolute values may lead to misinterpretation of CBC data. Current Interpretive Data was last revised on 2017. Basophil pct 0.4 % [facility] Comment: Interpretive Data Percent cell count reference ranges are not reported, since discordance with absolute values may lead to misinterpretation of CBC data. Current Interpretive Data was last revised on 2017. Blood 06/14/2022 8:16 AM CDT 06/14/2022 8:29 AM CDT Catherine Adams MD LAB BLOOD ORDERABLES Final Result Performing Organization Address [facility] Co de Phone Number [facility] [place] [address] * (ABNORMAL) aPTT (06/14/2022 8:16 AM CDT) aPTT 67(H) 27 - 37 sec [facility] Comment: Interpretive Data Therapeutic heparin range: 60.0 - 94.0 seconds. Based on correlation with therapeutic heparin activity range of 0.3-0.7 Units/mL. Current interpretive data was last revised on 2020. Blood 06/14/2022 8:16 AM CDT 06/14/2022 8:30 AM CDT Narrative [facility] - 06/14/2022 8:54 AM CDT Draw STAT [...] Final Result Performing Organization Address [facility] de Phone Number [facility] [place] [address] * (ABNORMAL) Blood gas, arterial (06/14/2022 8:16 AM CDT) pH, Art 7.41 7.35 - 7.45 [facility] PCO2, Arterial 38 35 - 45 mmHg [facility] PO2, Arterial 89 83 - 108 mmHg [facility] HCO3 Art (Calculated) 25 20 - 30 mmol/L [facility] BE, art 0 mmol/L [facility] Comment: Interpretive Data No Reference Range Established Current Interpretive Data was last revised on 2017 O2 Sat Art (Measured) 97(H) 90 - 95 % [facility] Blood 06/14/2022 8:16 AM CDT 06/14/2022 8:27 AM CDT Marcelina Lo OPTICAL INSTRUMENT INSPECTOR LAB BLOOD ORDERABLES Final Re sult Performing Organization Address [facility] Co de Phone Number [facility] [place] [address] * (ABNORMAL) Magnesium (06/14/2022 8:16 AM CDT) Pathologist [facility] Magnesium 2.9(H) 1.4 - 2.5 mg/dL [facility] Blood 06/14/2022 8:16 AM CDT 06/14/2022 8:29 AM CDT Marcelina Lo OPTICAL INSTRUMENT INSPECTOR LAB BLOOD ORDERABLES Final Re sult Performing Organization Address [facility] de Phone Number [facility] [place] [address] * (ABNORMAL) Comprehensive metabolic panel (06/14/2022 8:16 AM CDT) [facility] Sodium 134(L) 135 - 145 mmol/L [facility] Potassium, pl 4.7 3.3 - 4.9 mmol/L [facility] Comment:Hemolyzed; Potassium value may be falsely elevated by as much as 0.3-0.5 mmol/L. Suggest redraw and reanalysis. Chloride 100 97 - 110 mmol/L [facility] CO2 25 22 - 32 mmol/L [facility] Anion gap 9 2 - 15 mmol/L [facility] BUN 16 8 - 25 mg/dL [facility] Creatinine 2.19(H) 0.80 - 1.30 mg/dL [facility] Glucose 171 70 - 199 mg/dL [facility] Comment: Interpretive Data Fasting glucose >/= [...] 2017. Calcium 9.5 8.5 - 10.3 mg/dL [facility] Bilirubin, total 0.6 0.1 - 1.2 mg/dL [facility] Protein, pl 6.6 6.5 - 8.5 g/dL [facility] Albumin 3.1(L) 3.5 - 5.0 g/dL [facility] Alk phos 276(H) 40 - 130 Units/L [facility] ALT 48 7 - 55 Units/L [facility] AST 81(H) 10 - 50 Units/L [facility] Comment:Hemolyzed; result ma y be falsely elevated Blood 06/14/2022 8:16 AM CDT 06/14/2022 8:29 AM CDT us Marcelina Lo OPTICAL INSTRUMENT INSPECTOR LAB BLOOD ORDERABLES Final Re sult [facility] [place] [address] * (ABNORMAL) CBC with auto differential (06/14/2022 8:16 AM CDT) WBC 15.7(H) 3.8 - 9.9 K/cumm [facility] Hgb 8.3(L) 13.0 - 17.5 g/dL [facility] Hct 25.5(L) 38.9 - 50.3 % [facility] Plt 217 150 - 400 K/cumm [facility] MPV 10.6 9.1 - 12.3 fL [facility] RBC 2.63(L) 4.30 - 5.80 M/cumm [facility] MCV 97.0(H) 81.3 - 96.4 fL [facility] MCH 31.6 27.1 - 33.3 pg [facility] MCHC 32.5 32.3 - 35.7 g/dL [facility] RDW CV 13.8 11.1 - 14.9 % [facility] RDW SD 48.2(H) 35.7 - 48.1 fL [facility] NRBC abs 0.07(H) 0.00 - 0.01 K/cumm [facility] Blood 06/14/2022 8:16 AM CDT 06/14/2022 8:29 AM CDT us Marcelina Lo OPTICAL INSTRUMENT INSPECTOR LAB BLOOD ORDERABLES Final Re sult [facility] [place] [address] * POCT glucose (06/14/2022 7:46 AM CDT) [facility] Glucose, POC 180 70 - 199 mg/dL [facility] Blood 06/14/2022 7:46 AM CDT 06/14/2022 7:46 AM CDT us Catherine Adams MD LAB POCT ORDERABLES - DEVIC E Final Result Performing Organization Address City/[facility]/ZIP Co de Phone Number [facility] [place] [address] * XR Chest 1 View (06/14/2022 4:14 [...] Glucose, POC 163 70 - 199 mg/dL [facility] Blood 06/14/2022 4:01 AM CDT 06/14/2022 4:01 AM CDT Catherine Adams MD LAB POCT ORDERABLES - DEVIC E Final Result [facility] [place] [address] * POCT glucose (06/13/2022 11:38 PM CDT) Glucose, POC 175 70 - 199 mg/dL [facility] Blood 06/13/2022 11:3 8 PM CDT 06/13/2022 11:38 PM CDT us Catherine Adams MD LAB POCT ORDERABLES - DEVIC E Final Result Performing Organization Address [facility] de Phone Number [facility] [place] [address] * (ABNORMAL) aPTT (06/13/2022 10:49 PM CDT) aPTT 72(H) 27 - 37 sec [facility] Comment: Interpretive Data Therapeutic heparin range: 60.0 - 94.0 seconds. Based on correlation with therapeutic heparin activity range of 0.3-0.7 Units/mL. Current interpretive data was last revised on 2020. Blood 06/13/2022 10:4 9 PM CDT 06/13/2022 11:55 PM CDT Narrative [facility] - 06/14/2022 12:04 AM CDT Check aPTT 6 hours after the start of Heparin infusion and 6 hours after any change in Heparin rate. (Target aPTT 61-80 seconds). Call Nephrology if outside range. us Catherine Adams MD LAB BLOOD ORDERABLES Final Result Performing Organization Address [facility] de Phone Number [facility] [place] [address] * (ABNORMAL) Vancomycin level trough (06/13/2022 10:49 PM CDT) Vancomycin trough 23.3(H) 10.0 - 20.0 mcg/mL [facility] Blood 06/13/2022 10:4 9 PM CDT 06/13/2022 11:10 PM CDT us Catherine Adams MD LAB BLOOD ORDERABLES Final Result Performing Organization Address [facility]/ZIP Co de Phone Number [facility] [place] [address] * (ABNORMAL) CBC without differential (06/13/2022 10:49 PM CDT) WBC 15.0(H) 3.8 - 9.9 K/cumm [facility] Hgb 7.7(L) 13.0 - 17.5 g/dL [facility] Hct 22.7(L) 38.9 - 50.3 % [facility] Plt 206 150 - 400 K/cumm [facility] MPV 10.6 9.1 - 12.3 fL [facility] RBC 2.41(L) 4.30 - 5.80 M/cumm [facility] MCV 94.2 81.3 - 96.4 fL [facility] MCH 32.0 27.1 - 33.3 pg [facility] MCHC 33.9 32.3 - 35.7 g/dL [facility] RDW CV 13.7 11.1 - 14.9 % [facility] RDW SD 46.4 35.7 - 48.1 fL [facility] NRBC abs 0.05(H) 0.00 - 0.01 K/cumm [facility] Blood 06/13/2022 10:4 9 PM CDT 06/13/2022 11:10 PM CDT Catherine Adams MD LAB BLOOD ORDERABLES Final Result Performing Organization Address City/[facility] Co de Phone Number [facility] [place] [address] * (ABNORMAL) POCT glucose (06/13/2022 10:48 PM CDT) Glucose, POC 200(H) 70 - 199 mg/dL [facility] Blood 06/13/2022 10:4 8 PM CDT 06/13/2022 10:48 PM CDT us Catherine Adams MD LAB POCT ORDERABLES - DEVIC E Final Result [facility] [place] [address] * POCT glucose (06/13/2022 8:28 PM CDT) Pathologist [facility] Glucose, POC 182 70 - 199 mg/dL [facility] Blood 06/13/2022 8:28 PM CDT 06/13/2022 8:28 PM CDT Catherine Adams MD LAB POCT ORDERABLES - DEVIC E Final Result Performing Organization Address [facility] de Phone Number [facility] [place] [address] * (ABNORMAL) eGFR (06/13/2022 8:17 PM CDT) Pathologist [facility] eGFR 35(L) 90 - 130 mL/min/1. 73 m2 [facility] Comment: Interpretive Data Reference Interval Normal [...] Adams MD LAB BLOOD ORDERABLES Final Result [facility] [place] [address] * (ABNORMAL) Differential, auto (06/13/2022 8:17 PM CDT) Neutrophil abs 10.6(H) 1.7 - 6.5 K/cumm [facility] Imm gran abs 2.2(H) 0.0 - 0.1 K/cumm [facility] Lymphocyte abs 2.3 0.8 - 3.3 K/cumm [facility] Monocyte abs 1.5(H) 0.2 - 0.8 K/cumm [facility] Eosinophil abs 0.3 0.0 - 0.5 K/cumm [facility] Basophil abs 0.1 0.0 - 0.1 K/cumm [facility] Neutrophil pct 62.7 % [facility] Comment: Confirmed by smear review Interpretive Data Percent cell count reference ranges are not reported, since discordance with absolute values may lead to misinterpretation of CBC data. Current Interpretive Data was last revised on 2017. Imm gran pct 13.0 % [facility] Comment: Interpretive Data Percent cell count reference ranges are not reported, since discordance with absolute values may lead to misinterpretation of CBC data. Current Interpretive Data was last revised on 2017. Lymphocyte pct 13.4 % [facility] Comment: Interpretive Data Percent cell count reference ranges are not reported, since discordance with absolute values may lead to misinterpretation of CBC data. Current Interpretive Data was last revised on 2017. Monocyte pct 8.9 % [facility] Comment: Interpretive Data Percent cell count reference ranges are not reported, since discordance with absolute values may lead to misinterpretation of CBC data. Current Interpretive Data was last revised on 2017. Eosinophil pct 1.7 % [facility] Comment: Interpretive Data Percent cell count reference ranges are not reported, since discordance with absolute values may lead to misinterpretation of CBC data. Current Interpretive Data was last revised on 2017. Basophil pct 0.3 % [facility] Comment: Interpretive Data Percent cell count reference ranges are not reported, since discordance with absolute values may lead to misinterpretation of CBC data. Current Interpretive Data was last revised on 2017. Blood 06/13/2022 8:17 PM CDT 06/13/2022 8:34 PM CDT Catherine Adams MD LAB BLOOD ORDERABLES Final Result Performing Organization Address [facility] Co de Phone Number [facility] [place] [address] * (ABNORMAL) Magnesium (06/13/2022 8:17 PM CDT) Pathologist [facility] Magnesium 2.7(H) 1.4 - 2.5 mg/dL [facility] Blood 06/13/2022 8:17 PM CDT 06/13/2022 8:33 PM CDT Catherine Adams MD LAB BLOOD ORDERABLES Final Result Performing Organization Address City/[facility] de Phone Number [facility] [place] [address] * (ABNORMAL) Comprehensive metabolic panel (06/13/2022 8:17 PM CDT) Pathologist [facility] Sodium 135 135 - 145 mmol/L [facility] Potassium, pl 4.9 3.3 - 4.9 mmol/L [facility] Chloride 99 97 - 110 mmol/L [facility] CO2 26 22 - 32 mmol/L [facility] Anion gap 10 2 - 15 mmol/L [facility] BUN 17 8 - 25 mg/dL [facility] Creatinine 2.21(H) 0.80 - 1.30 mg/dL [facility] Glucose 179 70 - 199 mg/dL [facility] Comment: Interpretive Data Fasting glucose >/= [...] 2017. Calcium 8.9 8.5 - 10.3 mg/dL [facility] Bilirubin, total 0.6 0.1 - 1.2 mg/dL [facility] Protein, pl 6.2(L) 6.5 - 8.5 g/dL [facility] Albumin 3.0(L) 3.5 - 5.0 g/dL [facility] Alk phos 274(H) 40 - 130 Units/L [facility] ALT 47 7 - 55 Units/L [facility] AST 80(H) 10 - 50 Units/L [facility] Blood 06/13/2022 8:17 PM CDT 06/13/2022 8:33 PM CDT us Catherine Adams MD LAB BLOOD ORDERABLES Final Result [facility] [place] [address] * Lactate, whole blood (06/13/2022 8:17 PM CDT) Lactate, bld 0.8 0.7 - 2.0 mmol/L [facility] Blood 06/13/2022 8:17 PM CDT 06/13/2022 8:26 PM CDT us Marcelina Lo OPTICAL INSTRUMENT INSPECTOR LAB BLOOD ORDERABLES Final Re sult Performing Organization Address [facility] [place]/[facility] Co de Phone Number [facility] [place] [address] * (ABNORMAL) Blood gas, arterial (06/13/2022 8:17 PM CDT) pH, Art 7.42 7.35 - 7.45 [facility] PCO2, Arterial 37 35 - 45 mmHg [facility] PO2, Arterial 73(L) 83 - 108 mmHg [facility] HCO3 Art (Calculated) 24 20 - 30 mmol/L [facility] BE, art 0 mmol/L [facility] Comment: Interpretive Data No Reference Range Established Current Interpretive Data was last revised on 2017 O2 Sat Art (Measured) 94 90 - 95 % [facility] Blood 06/13/2022 8:17 PM CDT 06/13/2022 8:26 PM CDT Marcelina Lo OPTICAL INSTRUMENT INSPECTOR LAB BLOOD ORDERABLES Final Re sult Performing Organization Address [facility] [place]/[facility] Co de Phone Number [facility] [place] [address] * (ABNORMAL) Triglycerides (06/13/2022 8:17 PM CDT) Triglycerides 324(H) <=149 mg/dL [facility] Comment: Interpretive Data Ages < or [...] PM CDT 06/13/2022 8:33 PM CDT Narrative [facility] - 06/13/2022 9:29 PM CDT While on propofol infusion. Catherine Adams MD LAB BLOOD ORDERABLES Final Result Performing Organization Address City/[facility]/ZIP Co de Phone Number [facility] [place] [address] * Phosphorus (06/13/2022 8:17 PM CDT) Phosphorus, pl 3.1 2.3 - 4.5 mg/dL [facility] Blood 06/13/2022 8:17 PM CDT 06/13/2022 8:33 PM CDT Marcelina Lo OPTICAL INSTRUMENT INSPECTOR LAB BLOOD ORDERABLES Final Re sult Performing Organization Address City/[facility]/ZIP Co de Phone Number [facility] [place] [address] * (ABNORMAL) Beta-hydroxybutyrate (06/13/2022 8:17 PM CDT) Beta-Hydroxybut yrate 1.2(H) 0.0 - 0.5 mmol/L [facility] Blood 06/13/2022 8:17 PM CDT 06/13/2022 8:34 PM CDT Marcelina Lo OPTICAL INSTRUMENT INSPECTOR LAB BLOOD ORDERABLES Edited R esult - Final [facility] [place] [address] * Lipase (06/13/2022 8:17 PM CDT) Pathologist [facility] Lipase 16 10 - 99 Units/L [facility] Blood 06/13/2022 8:17 PM CDT 06/13/2022 8:33 PM CDT Marcelina Lo OPTICAL INSTRUMENT INSPECTOR LAB BLOOD ORDERABLES Final Re sult Performing Organization Address [facility] Co de Phone Number [facility] [place] [address] * (ABNORMAL) CBC with auto differential (06/13/2022 8:17 PM CDT) [facility] WBC 16.9(H) 3.8 - 9.9 K/cumm [facility] Hgb 8.0(L) 13.0 - 17.5 g/dL [facility] Hct 24.2(L) 38.9 - 50.3 % [facility] Plt 202 150 - 400 K/cumm [facility] MPV 10.7 9.1 - 12.3 fL [facility] RBC 2.55(L) 4.30 - 5.80 M/cumm [facility] MCV 94.9 81.3 - 96.4 fL [facility] MCH 31.4 27.1 - 33.3 pg [facility] MCHC 33.1 32.3 - 35.7 g/dL [facility] RDW CV 13.7 11.1 - 14.9 % [facility] RDW SD 46.6 35.7 - 48.1 fL [facility] NRBC abs 0.07(H) 0.00 - 0.01 K/cumm [facility] Blood 06/13/2022 8:17 PM CDT 06/13/2022 8:34 PM CDT Marcelina Lo OPTICAL INSTRUMENT INSPECTOR LAB BLOOD ORDERABLES Final Re sult [facility] [place] [address] * XR Chest 1 View (06/13/2022 4:45 PM CDT) Anatomical Region Laterality Modality Body, Chest N/A Computed Radiogr aphy 06/13/2022 4:58 PM CDT Impressions 06/13/2022 4:58 PM CDT Comparison is made to the prior from 06/13/2022. Endotracheal tube terminates 3 cm above the boni. Nasogastric tube terminates below the diaphragms on the [id number]. Left internal jugular approach central venous catheter [...] tube terminates below the diaphragms on the [id number]. Left internal jugular approach central venous catheter [...] PM CDT 06/13/2022 4:32 PM CDT Narrative [facility] - 06/13/2022 4:42 PM CDT Draw STAT [...] Final Result Performing Organization Address [facility] de Phone Number [facility] [place] [address] * (ABNORMAL) Blood gas, arterial (06/13/2022 4:12 PM CDT) Pathologist [facility] pH, Art 7.43 7.35 - 7.45 [facility] PCO2, Arterial 39 35 - 45 mmHg [facility] PO2, Arterial 63(L) 83 - 108 mmHg [facility] HCO3 Art (Calculated) 27 20 - 30 mmol/L [facility] BE, art 2 mmol/L [facility] Comment: Interpretive Data No Reference Range Established Current Interpretive Data was last revised on 2017 O2 Sat Art (Measured) 92 90 - 95 % [facility] Blood 06/13/2022 4:12 PM CDT 06/13/2022 4:20 PM CDT us Marcelina Lo NP LAB BLOOD ORDERABLES Final Re sult Performing Organization Address [facility] Co de Phone Number [facility] [place] [address] * Potassium, whole blood (06/13/2022 4:12 PM CDT) Pathologist [facility] Potassium, bld 4.5 3.3 - 4.9 mmol/L [facility] Blood 06/13/2022 4:12 PM CDT 06/13/2022 4:20 PM CDT Marcelina Lo OPTICAL INSTRUMENT INSPECTOR LAB BLOOD ORDERABLES Final Re sult Performing Organization Address City/[facility]/ZIP Co de Phone Number [facility] [place] [address] * Lactate, whole blood (06/13/2022 4:12 PM CDT) Lactate, bld 0.9 0.7 - 2.0 mmol/L [facility] Blood 06/13/2022 4:12 PM CDT 06/13/2022 4:20 PM CDT Marcelina Lo OPTICAL INSTRUMENT INSPECTOR LAB BLOOD ORDERABLES Final Re sult Performing Organization Address City/[facility]/ZIP Co de Phone Number [facility] [place] [address] * POCT glucose (06/13/2022 4:11 PM CDT) Glucose, POC 99 70 - 199 mg/dL [facility] Blood 06/13/2022 4:11 PM CDT 06/13/2022 4:11 PM CDT Catherine Adams MD LAB POCT ORDERABLES - DEVIC E Final Result [facility] [place] [address] * POCT glucose (06/13/2022 12:29 PM CDT) Glucose, POC 129 70 - 199 mg/dL [facility] Blood 06/13/2022 12:2 9 PM CDT 06/13/2022 12:29 PM CDT us Catherine Adams MD LAB POCT ORDERABLES - DEVIC E Final Result Performing Organization Address [facility] Co de Phone Number [facility] [place] [address] * (ABNORMAL) Blood gas, arterial (06/13/2022 12:20 PM CDT) pH, Art 7.40 7.35 - 7.45 [facility] PCO2, Arterial 42 35 - 45 mmHg [facility] PO2, Arterial 60(L) 83 - 108 mmHg [facility] HCO3 Art (Calculated) 27 20 - 30 mmol/L [facility] BE, art 2 mmol/L [facility] Comment: Interpretive Data No Reference Range Established Current Interpretive Data was last revised on 2017 O2 Sat Art (Measured) 90 90 - 95 % [facility] Blood 06/13/2022 12:2 0 PM CDT 06/13/2022 1:01 PM CDT us Marcelina Lo OPTICAL INSTRUMENT INSPECTOR LAB BLOOD ORDERABLES Final Re sult Performing Organization Address [facility] [place] Co de Phone Number [facility] [place] [address] * XR Chest 1 View (06/13/2022 11:11 [...] Potassium, bld 5.7(H) 3.3 - 4.9 mmol/L [facility] Blood 06/13/2022 9:41 AM CDT 06/13/2022 9:47 AM CDT Marcelina Lo OPTICAL INSTRUMENT INSPECTOR LAB BLOOD ORDERABLES Final Re sult [facility] [place] [address] * Lactate, whole blood (06/13/2022 9:41 AM CDT) Lactate, bld 1.0 0.7 - 2.0 mmol/L [facility] Blood 06/13/2022 9:41 AM CDT 06/13/2022 9:47 AM CDT Marcelina Lo OPTICAL INSTRUMENT INSPECTOR LAB BLOOD ORDERABLES Final Re sult Performing Organization Address [facility] [place] Co de Phone Number [facility] [place] [address] * (ABNORMAL) Blood gas, arterial (06/13/2022 9:41 AM CDT) pH, Art 7.40 7.35 - 7.45 [facility] PCO2, Arterial 40 35 - 45 mmHg [facility] PO2, Arterial 66(L) 83 - 108 mmHg [facility] HCO3 Art (Calculated) 26 20 - 30 mmol/L [facility] BE, art 0 mmol/L [facility] Comment: Interpretive Data No Reference Range Established Current Interpretive Data was last revised on 2017 O2 Sat Art (Measured) 93 90 - 95 % [facility] Blood 06/13/2022 9:41 AM CDT 06/13/2022 9:47 AM CDT Marcelina Lo OPTICAL INSTRUMENT INSPECTOR LAB BLOOD ORDERABLES Final Re sult Performing Organization Address [facility] [place] de Phone Number [facility] [place] [address] * (ABNORMAL) POCT glucose (06/13/2022 9:38 AM CDT) Glucose, POC 215(H) 70 - 199 mg/dL [facility] Blood 06/13/2022 9:38 AM CDT 06/13/2022 9:38 AM CDT Catherine Adams MD LAB POCT ORDERABLES - DEVIC E Final Result Performing Organization Address [facility] [place] Co de Phone Number [facility] [place] [address] * TRANSTHORACIC ECHO (TTE) COMPLETE W DOPPLER/CF W CONTRAST W BUBBLE (06/13/2022 9:34 AM CDT) LV EF 65 % CARDIOREPORT Anatomical Region Laterality Modality Ultrasound 06/13/2022 7:10 AM CDT Narrative 06/13/2022 11:08 AM CDT Patient name: Adelia Garvin Date of test: 06/13/2022 Type of test: TTE w/Doppler Hospital #: [id number] Date of : 1970 (M) Forming Press Operator: Elli Larsen RDCS Referring Physician: CATHERINE ADAMS MD Contrast Agent: 0.8 ml. Optison Admin., (2.2 ml Wasted) and NS Bubble Study Contrast Administered by: Ginna RN Supervised/Interpreted by: Vincenzo Stoddard MD Diagnosis: Location: [facility] Reason for test: TTE with bubble [...] 2=Hypo 3=Akinetic 4=Dyskin./Aneurysm 0=Not visualized) Parasternal Long [place]:MAS=1 BAS=1 MIL=1 IVETH=1 Parasternal Short [place]:MAS=1 MIS=1 VA=1 MIL=1 MAL=1 MA=1 Apical 4 [...] MD By signing this report, the attending motor coach driver certifies that he or she has personally supervised and interpreted the echocardiogram and has reviewed and or edited and agrees with the written comments contained within the report. Procedure Note Vincenzo Stoddard MD - 06/13/2022 Patient name: Adelia Garvin Date of test: 06/13/2022 Type of test: TTE w/Doppler [facility] #: 0 Date of : 1970 (M) [employer] Operator: Elli Larsen RDCS Referring Physician: CATHERINE ADAMS MD Contrast Agent: 0.8 ml. Optison Admin., (2.2 ml Wasted) and NS Bubble Study Contrast Administered by: Floor RN Supervised/Interpreted by: Vincenzo Stoddard MD Diagnosis: Location: [facility] Reason for test: TTE with bubble [...] 2=Hypo 3=Akinetic 4=Dyskin./Aneurysm 0=Not visualized) Parasternal Long [place]:MAS=1 BAS=1 MIL=1 IVETH=1 Parasternal Short [place]:MAS=1 MIS=1 VA=1 MIL=1 MAL=1 MA=1 Apical 4 [...] MD By signing this report, the attending motor coach driver certifies that he or she has personally supervised and interpreted the echocardiogram and has reviewed and or edited and agrees with the written comments contained within the report. us Catherine Adams MD CV ECHO PROCEDURES Final Re sult * (ABNORMAL) Manual Differential (06/13/2022 9:33 AM CDT) Differential Manual [facility] Cells Counted 115 [facility] Neutrophil abs 13.0(H) 1.7 - 6.5 K/cumm [facility] Imm gran abs 1.2(H) 0.0 - 0.1 K/cumm [facility] Lymphocyte abs 0.7(L) 0.8 - 3.3 K/cumm [facility] Monocyte abs 0.4 0.2 - 0.8 K/cumm [facility] Eosinophil abs 0.3 0.0 - 0.5 K/cumm [facility] Neutrophil pct 83.6 % [facility] Comment: Interpretive Data Percent cell count reference ranges are not reported, since discordance with absolute values may lead to misinterpretation of CBC data. Current Interpretive Data was last revised on 2017. Lymphocyte pct 4.3 % [facility] Comment: Interpretive Data Percent cell count reference ranges are not reported, since discordance with absolute values may lead to misinterpretation of CBC data. Current Interpretive Data was last revised on 2017. Monocyte pct 2.6 % [facility] Comment: Interpretive Data Percent cell count reference ranges are not reported, since discordance with absolute values may lead to misinterpretation of CBC data. Current Interpretive Data was last revised on 2017. Eosinophil pct 1.7 % [facility] Comment: Interpretive Data Percent cell count reference ranges are not reported, since discordance with absolute values may lead to misinterpretation of CBC data. Current Interpretive Data was last revised on 2017. Metamyelocyte pct 5.2 % [facility] Myelocyte pct 2.6 % [facility] Blood 06/13/2022 9:33 AM CDT 06/13/2022 10:10 AM CDT us Catherine Adams MD LAB BLOOD ORDERABLES Final Result [facility] [place] [address] * (ABNORMAL) eGFR (06/13/2022 9:33 AM CDT) eGFR 34(L) 90 - 130 mL/min/1. 73 m2 [facility] Comment: Interpretive Data Reference Interval Normal [...] Adams MD LAB BLOOD ORDERABLES Final Result [facility] [place] [address] * (ABNORMAL) Magnesium (06/13/2022 9:33 AM CDT) Magnesium 2.8(H) 1.4 - 2.5 mg/dL [facility] Blood 06/13/2022 9:33 AM CDT 06/13/2022 10:06 AM CDT us Marcelina Lo OPTICAL INSTRUMENT INSPECTOR LAB BLOOD ORDERABLES Final Re sult [facility] [place] [address] * (ABNORMAL) Comprehensive metabolic panel (06/13/2022 9:33 AM CDT) Sodium 135 135 - 145 mmol/L [facility] Potassium, pl 5.6(H) 3.3 - 4.9 mmol/L [facility] Chloride 98 97 - 110 mmol/L [facility] CO2 26 22 - 32 mmol/L [facility] Anion gap 11 2 - 15 mmol/L [facility] BUN 19 8 - 25 mg/dL [facility] Creatinine 2.26(H) 0.80 - 1.30 mg/dL [facility] Glucose 217(H) 70 - 199 mg/dL [facility] Comment: Interpretive Data Fasting glucose >/= [...] Calcium 8.7 8.5 - 10.3 mg/dL [facility] Bilirubin, total 0.7 0.1 - 1.2 mg/dL [facility] Protein, pl 6.5 6.5 - 8.5 g/dL [facility] Albumin 3.2(L) 3.5 - 5.0 g/dL [facility] Alk phos 300(H) 40 - 130 Units/L [facility] ALT 55 7 - 55 Units/L [facility] AST 90(H) 10 - 50 Units/L [facility] Blood 06/13/2022 9:33 AM CDT 06/13/2022 10:06 AM CDT us Marcelina Lo OPTICAL INSTRUMENT INSPECTOR LAB BLOOD ORDERABLES Final Re sult Performing Organization Address [facility] [place] Co de Phone Number [facility] [place] [address] * (ABNORMAL) CBC with auto differential (06/13/2022 9:33 AM CDT) WBC 15.6(H) 3.8 - 9.9 K/cumm [facility] Hgb 7.7(L) 13.0 - 17.5 g/dL [facility] Hct 23.1(L) 38.9 - 50.3 % [facility] Plt 191 150 - 400 K/cumm [facility] MPV 10.9 9.1 - 12.3 fL [facility] RBC 2.45(L) 4.30 - 5.80 M/cumm [facility] MCV 94.3 81.3 - 96.4 fL [facility] MCH 31.4 27.1 - 33.3 pg [facility] MCHC 33.3 32.3 - 35.7 g/dL [facility] RDW CV 13.6 11.1 - 14.9 % [facility] RDW SD 46.7 35.7 - 48.1 fL [facility] NRBC abs 0.05(H) 0.00 - 0.01 K/cumm [facility] Blood 06/13/2022 9:33 AM CDT 06/13/2022 10:06 AM CDT us Marcelina Lo OPTICAL INSTRUMENT INSPECTOR LAB BLOOD ORDERABLES Final Re sult [facility] [place] [address] * (ABNORMAL) POCT glucose (06/13/2022 4:40 AM CDT) Glucose, POC 280(H) 70 - 199 mg/dL [facility] Blood 06/13/2022 4:40 AM CDT 06/13/2022 4:40 AM CDT Catherine Adams MD LAB POCT ORDERABLES - DEVIC E Final Result Performing Organization Address [facility] [place] Co de Phone Number [facility] [place] [address] * (ABNORMAL) Blood gas, arterial (06/13/2022 2:26 AM CDT) pH, Art 7.35 7.35 - 7.45 [facility] PCO2, Arterial 42 35 - 45 mmHg [facility] PO2, Arterial 78(L) 83 - 108 mmHg [facility] HCO3 Art (Calculated) 24 20 - 30 mmol/L [facility] BE, art -3 mmol/L [facility] Comment: Interpretive Data No Reference Range Established Current Interpretive Data was last revised on 2017 O2 Sat Art (Measured) 94 90 - 95 % [facility] Blood 06/13/2022 2:26 AM CDT 06/13/2022 2:58 AM CDT us Marcelina Lo OPTICAL INSTRUMENT INSPECTOR LAB BLOOD ORDERABLES Final Re sult Performing Organization Address [facility] [place] Co de Phone Number [facility] [place] [address] * (ABNORMAL) Blood gas, arterial (06/13/2022 1:11 AM CDT) pH, Art 7.35 7.35 - 7.45 [facility] PCO2, Arterial 44 35 - 45 mmHg [facility] PO2, Arterial 72(L) 83 - 108 mmHg [facility] HCO3 Art (Calculated) 25 20 - 30 mmol/L [facility] BE, art -1 mmol/L [facility] Comment: Interpretive Data No Reference Range Established Current Interpretive Data was last revised on 2017 O2 Sat Art (Measured) 94 90 - 95 % [facility] Blood 06/13/2022 1:11 AM CDT 06/13/2022 1:30 AM CDT us Marcelina Lo OPTICAL INSTRUMENT INSPECTOR LAB BLOOD ORDERABLES Final Re sult Performing Organization Address [facility] Co de Phone Number [facility] [place] [address] * Potassium, whole blood (06/13/2022 1:11 AM CDT) Potassium, bld 4.8 3.3 - 4.9 mmol/L [facility] Blood 06/13/2022 1:11 AM CDT 06/13/2022 1:30 AM CDT us Catherine Adams MD LAB BLOOD ORDERABLES Final Result Performing Organization Address [facility] [place] Co de Phone Number [facility] [place] [address] * POCT glucose (06/12/2022 11:26 PM CDT) Glucose, POC 123 70 - 199 mg/dL [facility] Blood 06/12/2022 11:2 6 PM CDT 06/12/2022 11:26 PM CDT Catherine Adams MD LAB POCT ORDERABLES - DEVIC E Final Result Performing Organization Address [facility] Co de Phone Number [facility] [place] [address] * Lactate, whole blood (06/12/2022 8:55 PM CDT) Lactate, bld 1.2 0.7 - 2.0 mmol/L [facility] Blood 06/12/2022 8:55 PM CDT 06/12/2022 9:59 PM CDT us Jeffrey Green MD LAB BLOOD ORDERABLES Final Result Performing Organization Address [facility] [place] Co de Phone Number [facility] [place] [address] * (ABNORMAL) eGFR (06/12/2022 8:47 PM CDT) eGFR 35(L) 90 - 130 mL/min/1. 73 m2 [facility] Comment: Interpretive Data Reference Interval Normal [...] BLOOD ORDERABLES Final Result Performing Organization Address [facility] Co de Phone Number [facility] [place] [address] * (ABNORMAL) Differential, auto (06/12/2022 8:47 PM [...] [facility] Neutrophil pct 65.3 % [facility] Comment: Confirmed by smear review Interpretive Data Percent cell count reference ranges are not reported, since discordance with absolute values may lead to misinterpretation of CBC data. Current Interpretive Data was last revised on 2017. Imm gran pct 13.1 % [facility] Comment: Interpretive Data Percent cell [...] on 2017. Monocyte pct 7.0 % [facility] Comment: Interpretive Data Percent cell [...] BLOOD ORDERABLES Final Result Performing Organization Address [facility]/ZIP Co de Phone Number [facility] [place] [address] * (ABNORMAL) Magnesium (06/12/2022 8:47 PM CDT) Pathologist [facility] Magnesium 2.7(H) 1.4 - 2.5 mg/dL [facility] Blood 06/12/2022 8:47 PM CDT 06/12/2022 10:04 PM CDT Catherine Adams MD LAB BLOOD ORDERABLES Final Result Performing Organization Address [facility] [place] de Phone Number [facility] [place] [address] * (ABNORMAL) Comprehensive metabolic panel (06/12/2022 8:47 PM CDT) Pathologist [facility] Sodium 134(L) 135 - 145 mmol/L [facility] Potassium, pl 5.1(H) 3.3 - 4.9 mmol/L [facility] Comment:Hemolyzed; Potassium value may be falsely elevated by as much as 0.6-1.0 mmol/L. Suggest redraw and reanalysis. Chloride 101 97 - 110 mmol/L [facility] CO2 24 22 - 32 mmol/L [facility] Anion gap 9 2 - 15 mmol/L [facility] BUN 19 8 - 25 mg/dL [facility] Creatinine 2.22(H) 0.80 - 1.30 mg/dL [facility] Glucose 101 70 - 199 mg/dL [facility] Comment: Interpretive Data Fasting glucose >/= [...] 2017. Calcium 8.7 8.5 - 10.3 mg/dL [facility] Bilirubin, total 0.8 0.1 - 1.2 mg/dL [facility] Protein, pl 6.5 6.5 - 8.5 g/dL [facility] Albumin 2.7(L) 3.5 - 5.0 g/dL [facility] Alk phos 300(H) 40 - 130 Units/L [facility] ALT 57(H) 7 - 55 Units/L [facility] AST 110(H) 10 - 50 Units/L [facility] Comment:Hemolyzed; result ma y be falsely elevated Blood 06/12/2022 8:47 PM CDT 06/12/2022 10:04 PM CDT Catherine Adams MD LAB BLOOD ORDERABLES Final Result [facility] [place] [address] * (ABNORMAL) Blood gas, arterial (06/12/2022 8:47 PM CDT) pH, Art 7.36 7.35 - 7.45 [facility] PCO2, Arterial 47(H) 35 - 45 mmHg [facility] PO2, Arterial 84 83 - 108 mmHg [facility] HCO3 Art (Calculated) 27 20 - 30 mmol/L [facility] BE, art 1 mmol/L [facility] Comment: Interpretive Data No Reference Range Established Current Interpretive Data was last revised on 2017 O2 Sat Art (Measured) 96(H) 90 - 95 % [facility] Blood 06/12/2022 8:47 PM CDT 06/12/2022 9:59 PM CDT Marcelina Lo NP LAB BLOOD ORDERABLES Final Re sult Performing Organization Address [facility] [place] de Phone Number [facility] [place] [address] * (ABNORMAL) aPTT (06/12/2022 8:47 PM CDT) aPTT 78(H) 27 - 37 sec [facility] Comment: Interpretive Data Therapeutic heparin range: 60.0 - 94.0 seconds. Based on correlation with therapeutic heparin activity range of 0.3-0.7 Units/mL. Current interpretive data was last revised on 2020. Blood 06/12/2022 8:47 PM CDT 06/12/2022 10:12 PM CDT Narrative [facility] - 06/12/2022 10:40 PM CDT Check aPTT 6 hours after the start of Heparin infusion and 6 hours after any change in Heparin rate. (Target aPTT 61-80 seconds). Call Nephrology if outside range. Catherine Adams MD LAB BLOOD ORDERABLES Final Result Performing Organization Address [facility] [place] de Phone Number [facility] [place] [address] * (ABNORMAL) Triglycerides (06/12/2022 8:47 PM CDT) Triglycerides 248(H) <=149 mg/dL [facility] Comment: Interpretive Data Ages < or [...] PM CDT 06/12/2022 10:04 PM CDT Narrative [facility] - 06/12/2022 10:44 PM CDT While on propofol infusion. Catherine Adams MD LAB BLOOD ORDERABLES Final Result Performing Organization Address [facility] [place] Co de Phone Number [facility] [place] [address] * Phosphorus (06/12/2022 8:47 PM CDT) Phosphorus, pl 3.5 2.3 - 4.5 mg/dL [facility] Blood 06/12/2022 8:47 PM CDT 06/12/2022 10:04 PM CDT us Marcelina Lo NP LAB BLOOD ORDERABLES Final Re sult Performing Organization Address [facility] Co de Phone Number [facility] [place] [address] * Beta-hydroxybutyrate (06/12/2022 8:47 PM CDT) Beta-Hydroxybut yrate 0.2 0.0 - 0.5 mmol/L [facility] Blood 06/12/2022 8:47 PM CDT 06/12/2022 10:00 PM CDT us Marcelina Lo OPTICAL INSTRUMENT INSPECTOR LAB BLOOD ORDERABLES Edited R esult - Final [facility] [place] [address] * Lipase (06/12/2022 8:47 PM CDT) Pathologist [facility] Lipase 16 10 - 99 Units/L [facility] Blood 06/12/2022 8:47 PM CDT 06/12/2022 10:04 PM CDT Marcelina Lo OPTICAL INSTRUMENT INSPECTOR LAB BLOOD ORDERABLES Final Re sult Performing Organization Address [facility] [place]/ZIP Co de Phone Number [facility] [place] [address] * (ABNORMAL) CBC with auto differential (06/12/2022 8:47 PM CDT) [facility] WBC 14.6(H) 3.8 - 9.9 K/cumm [facility] Hgb 8.1(L) 13.0 - 17.5 g/dL [facility] Hct 24.7(L) 38.9 - 50.3 % [facility] Plt 207 150 - 400 K/cumm [facility] MPV 11.0 9.1 - 12.3 fL [facility] RBC 2.61(L) 4.30 - 5.80 M/cumm [facility] MCV 94.6 81.3 - 96.4 fL [facility] MCH 31.0 27.1 - 33.3 pg [facility] MCHC 32.8 32.3 - 35.7 g/dL [facility] RDW CV 13.4 11.1 - 14.9 % [facility] RDW SD 45.9 35.7 - 48.1 fL [facility] NRBC abs 0.03(H) 0.00 - 0.01 K/cumm [facility] Blood 06/12/2022 8:47 PM CDT 06/12/2022 10:10 PM CDT us Marcelina Lo OPTICAL INSTRUMENT INSPECTOR LAB BLOOD ORDERABLES Final Re sult Performing Organization Address [facility] [place] Co de Phone Number [facility] [place] [address] * POCT glucose (06/12/2022 8:44 PM CDT) Glucose, POC 99 70 - 199 mg/dL [facility] Blood 06/12/2022 8:44 PM CDT 06/12/2022 8:44 PM CDT Catherine Adams MD LAB POCT ORDERABLES - DEVIC E Final Result Performing Organization Address [facility] [place] Co de Phone Number [facility] [place] [address] * POCT glucose (06/12/2022 4:01 PM CDT) Glucose, POC 110 70 - 199 mg/dL [facility] Blood 06/12/2022 4:01 PM CDT 06/12/2022 4:01 PM CDT Catherine Adams MD LAB POCT ORDERABLES - DEVIC E Final Result Performing Organization Address [facility] [place] Co de Phone Number [facility] [place] [address] * (ABNORMAL) aPTT (06/12/2022 4:01 PM CDT) aPTT 75(H) 27 - 37 sec [facility] Comment: Interpretive Data Therapeutic heparin range: 60.0 - 94.0 seconds. Based on correlation with therapeutic heparin activity range of 0.3-0.7 Units/mL. Current interpretive data was last revised on 2020. Blood 06/12/2022 4:01 PM CDT 06/12/2022 4:27 PM CDT Narrative [facility] - 06/12/2022 4:48 PM CDT Check aPTT 6 hours after the start of Heparin infusion and 6 hours after any change in Heparin rate. (Target aPTT 61-80 seconds). Call Nephrology if outside range. Catherine Adams MD LAB BLOOD ORDERABLES Final Result Performing Organization Address [facility] [place] de Phone Number [facility] [place] [address] * Blood gas, arterial (06/12/2022 4:01 PM CDT) pH, Art 7.42 7.35 - 7.45 [facility] PCO2, Arterial 41 35 - 45 mmHg [facility] PO2, Arterial 94 83 - 108 mmHg [facility] HCO3 Art (Calculated) 27 20 - 30 mmol/L [facility] BE, art 2 mmol/L [facility] Comment: Interpretive Data No Reference Range Established Current Interpretive Data was last revised on 2017 Blood 06/12/2022 4:01 PM CDT 06/12/2022 4:16 PM CDT Marcelina Lo NP LAB BLOOD ORDERABLES Final Re sult Performing Organization Address [facility] [place] de Phone Number [facility] [place] [address] * Aerobic culture and gram stain Tracheal aspirate Tracheal (06/12/2022 2:31 PM CDT) Direct Specimen Exam Stain: Rare polymorphonuclear leukocytes seen. Few squamous epithelial cells seen. Rare mixed bacterial stone seen on Gram stain. [facility] Report Final Report: Insignificant growth based on current clinical standards. [facility] Tracheal aspirate (Tracheal) 06/12/2022 2:31 PM CDT 06/12/2022 3:47 PM CDT Narrative [facility] - 06/14/2022 11:49 AM CDT Testing performed by [facility] ([phone]) Specimens submitted from normally sterile body sites [...] MICROBIOLOGY - GENERAL ORDERABLES Final Result [facility] [place] [address] * XR Chest 1 View (06/12/2022 1:10 [...] pH, Art 7.41 7.35 - 7.45 [facility] PCO2, Arterial 38 35 - 45 mmHg [facility] PO2, Arterial 135(H) 83 - 108 mmHg [facility] HCO3 Art (Calculated) 25 20 - 30 mmol/L [facility] BE, art 0 mmol/L [facility] Comment: Interpretive Data No Reference Range Established Current Interpretive Data was last revised on 2017 O2 Sat Art (Measured) 97(H) 90 - 95 % [facility] Blood 06/12/2022 12:5 6 PM CDT 06/12/2022 1:02 PM CDT us Marcelina Lo OPTICAL INSTRUMENT INSPECTOR LAB BLOOD ORDERABLES Final Re sult [facility] [place] [address] * (ABNORMAL) Blood gas, arterial (06/12/2022 11:37 AM CDT) pH, Art 7.41 7.35 - 7.45 [facility] PCO2, Arterial 40 35 - 45 mmHg [facility] PO2, Arterial 82(L) 83 - 108 mmHg [facility] HCO3 Art (Calculated) 26 20 - 30 mmol/L [facility] BE, art 0 mmol/L [facility] Comment: Interpretive Data No Reference Range Established Current Interpretive Data was last revised on 2017 O2 Sat Art (Measured) 96(H) 90 - 95 % [facility] Blood 06/12/2022 11:3 7 AM CDT 06/12/2022 11:43 AM CDT Marcelina Lo OPTICAL INSTRUMENT INSPECTOR LAB BLOOD ORDERABLES Final Re sult Performing Organization Address [facility] [place] de Phone Number [facility] [place] [address] * POCT glucose (06/12/2022 11:36 AM CDT) Glucose, POC 161 70 - 199 mg/dL [facility] Blood 06/12/2022 11:3 6 AM CDT 06/12/2022 11:36 AM CDT Catherine Adams MD LAB POCT ORDERABLES - DEVIC E Final Result Performing Organization Address [facility] de Phone Number [facility] [place] [address] * (ABNORMAL) Blood gas, arterial (06/12/2022 9:53 AM CDT) pH, Art 7.42 7.35 - 7.45 [facility] PCO2, Arterial 36 35 - 45 mmHg [facility] PO2, Arterial 106 83 - 108 mmHg [facility] HCO3 Art (Calculated) 25 20 - 30 mmol/L [facility] BE, art 0 mmol/L [facility] Comment: Interpretive Data No Reference Range Established Current Interpretive Data was last revised on 2017 O2 Sat Art (Measured) 98(H) 90 - 95 % [facility] Blood 06/12/2022 9:53 AM CDT 06/12/2022 10:02 AM CDT Marcelina Lo OPTICAL INSTRUMENT INSPECTOR LAB BLOOD ORDERABLES Final Re sult [facility] [place] [address] * (ABNORMAL) Manual Differential (06/12/2022 8:02 AM CDT) Differential Manual [facility] Cells Counted 116 [facility] Neutrophil abs 9.1(H) 1.7 - 6.5 K/cumm [facility] Imm gran abs 0.8(H) 0.0 - 0.1 K/cumm [facility] Lymphocyte abs 1.9 0.8 - 3.3 K/cumm [facility] Monocyte abs 0.3 0.2 - 0.8 K/cumm [facility] Eosinophil abs 0.4 0.0 - 0.5 K/cumm [facility] Neutrophil pct 72.5 % [facility] Comment: Interpretive Data Percent cell count reference ranges are not reported, since discordance with absolute values may lead to misinterpretation of CBC data. Current Interpretive Data was last revised on 2017. Lymphocyte pct 15.5 % [facility] Comment: Interpretive Data Percent cell count reference ranges are not reported, since discordance with absolute values may lead to misinterpretation of CBC data. Current Interpretive Data was last revised on 2017. Monocyte pct 2.6 % [facility] Comment: Interpretive Data Percent cell count reference ranges are not reported, since discordance with absolute values may lead to misinterpretation of CBC data. Current Interpretive Data was last revised on 2017. Eosinophil pct 3.4 % [facility] Comment: Interpretive Data Percent cell count reference ranges are not reported, since discordance with absolute values may lead to misinterpretation of CBC data. Current Interpretive Data was last revised on 2017. Metamyelocyte pct 2.6 % [facility] Myelocyte pct 3.4 % [facility] Blood 06/12/2022 8:02 AM CDT 06/12/2022 8:32 AM CDT Catherine Adams MD LAB BLOOD ORDERABLES Final Result [facility] [place] [address] * (ABNORMAL) eGFR (06/12/2022 8:02 AM CDT) Pathologist [facility] eGFR 31(L) 90 - 130 mL/min/1. 73 m2 [facility] Comment: Interpretive Data Reference Interval [...] BLOOD ORDERABLES Final Result [facility] [place] [address] * (ABNORMAL) aPTT (06/12/2022 8:02 AM CDT) [facility] aPTT 70(H) 27 - 37 sec [facility] Comment: Interpretive Data Therapeutic heparin range: 60.0 - 94.0 seconds. Based on correlation with therapeutic heparin activity range of 0.3-0.7 Units/mL. Current interpretive data was last revised on 2020. Blood 06/12/2022 8:02 AM CDT 06/12/2022 8:15 AM CDT Narrative [facility] - 06/12/2022 8:43 AM CDT Check aPTT 6 hours after the start of Heparin infusion and 6 hours after any change in Heparin rate. (Target aPTT 61-80 seconds). Call Nephrology if outside range. us Catherine Adams MD LAB BLOOD ORDERABLES Final Result Performing Organization Address [facility] [place] de Phone Number [facility] [place] [address] * (ABNORMAL) Blood gas, arterial (06/12/2022 8:02 AM CDT) pH, Art 7.47(H) 7.35 - 7.45 [facility] PCO2, Arterial 34(L) 35 - 45 mmHg [facility] PO2, Arterial 71(L) 83 - 108 mmHg [facility] HCO3 Art (Calculated) 25 20 - 30 mmol/L [facility] BE, art 1 mmol/L [facility] Comment: Interpretive Data No Reference Range Established Current Interpretive Data was last revised on 2017 O2 Sat Art (Measured) 95 90 - 95 % [facility] Blood 06/12/2022 8:02 AM CDT 06/12/2022 8:13 AM CDT us Marcelina Lo NP LAB BLOOD ORDERABLES Final Re sult Performing Organization Address [facility] [place] Co de Phone Number [facility] [place] [address] * Magnesium (06/12/2022 8:02 AM CDT) Magnesium 2.5 1.4 - 2.5 mg/dL [facility] Blood 06/12/2022 8:02 AM CDT 06/12/2022 8:28 AM CDT us Marcelina Lo OPTICAL INSTRUMENT INSPECTOR LAB BLOOD ORDERABLES Final Re sult [facility] [place] [address] * (ABNORMAL) Comprehensive metabolic panel (06/12/2022 8:02 AM CDT) Pathologist [facility] Sodium 135 135 - 145 mmol/L [facility] Potassium, pl 4.4 3.3 - 4.9 mmol/L [facility] Chloride 101 97 - 110 mmol/L [facility] CO2 26 22 - 32 mmol/L [facility] Anion gap 8 2 - 15 mmol/L [facility] BUN 23 8 - 25 mg/dL [facility] Creatinine 2.45(H) 0.80 - 1.30 mg/dL [facility] Glucose 157 70 - 199 mg/dL [facility] Comment: Interpretive Data Fasting glucose >/= [...] 2017. Calcium 8.4(L) 8.5 - 10.3 mg/dL [facility] Bilirubin, total 0.7 0.1 - 1.2 mg/dL [facility] Protein, pl 5.8(L) 6.5 - 8.5 g/dL [facility] Albumin 2.6(L) 3.5 - 5.0 g/dL [facility] Alk phos 248(H) 40 - 130 Units/L [facility] ALT 49 7 - 55 Units/L [facility] AST 95(H) 10 - 50 Units/L [facility] Blood 06/12/2022 8:02 AM CDT 06/12/2022 8:28 AM CDT Marcelina Lo OPTICAL INSTRUMENT INSPECTOR LAB BLOOD ORDERABLES Final Re sult Performing Organization Address City/[facility]/ZIP Co de Phone Number [facility] [place] [address] * (ABNORMAL) CBC with auto differential (06/12/2022 8:02 AM CDT) WBC 12.5(H) 3.8 - 9.9 K/cumm [facility] Hgb 7.5(L) 13.0 - 17.5 g/dL [facility] Hct 22.3(L) 38.9 - 50.3 % [facility] Plt 174 150 - 400 K/cumm [facility] MPV 11.0 9.1 - 12.3 fL [facility] RBC 2.36(L) 4.30 - 5.80 M/cumm [facility] MCV 94.5 81.3 - 96.4 fL [facility] MCH 31.8 27.1 - 33.3 pg [facility] MCHC 33.6 32.3 - 35.7 g/dL [facility] RDW CV 13.5 11.1 - 14.9 % [facility] RDW SD 45.5 35.7 - 48.1 fL [facility] NRBC abs 0.02(H) 0.00 - 0.01 K/cumm [facility] Blood 06/12/2022 8:02 AM CDT 06/12/2022 8:27 AM CDT Marcelina Lo OPTICAL INSTRUMENT INSPECTOR LAB BLOOD ORDERABLES Final Re sult [place] [address] * POCT glucose (06/12/2022 8:01 AM CDT) Glucose, POC 143 70 - 199 mg/dL [facility] Blood 06/12/2022 8:01 AM CDT 06/12/2022 8:01 AM CDT us Catherine Adams MD LAB POCT ORDERABLES - DEVIC E Final Result Performing Organization Address [facility] [place] de Phone Number [facility] [place] [address] * (ABNORMAL) Blood gas, arterial (06/12/2022 6:21 AM CDT) pH, Art 7.41 7.35 - 7.45 [facility] PCO2, Arterial 40 35 - 45 mmHg [facility] PO2, Arterial 86 83 - 108 mmHg [facility] HCO3 Art (Calculated) 26 20 - 30 mmol/L [facility] BE, art 1 mmol/L [facility] Comment: Interpretive Data No Reference Range Established Current Interpretive Data was last revised on 2017 O2 Sat Art (Measured) 96(H) 90 - 95 % [facility] Blood 06/12/2022 6:21 AM CDT 06/12/2022 6:29 AM CDT Result [facility] us Catherine Adams MD LAB BLOOD ORDERABLES Final Result Performing Organization Address [facility] [place] de Phone Number [facility] [place] [address] * POCT glucose (06/12/2022 4:57 AM CDT) Glucose, POC 163 70 - 199 mg/dL [facility] Blood 06/12/2022 4:57 AM CDT 06/12/2022 4:57 AM CDT us Catherine Adams MD LAB POCT ORDERABLES - DEVIC E Final Result Performing Organization Address [facility] [place] [place] [address] * (ABNORMAL) aPTT (06/12/2022 1:52 AM CDT) aPTT 52(H) 27 - 37 sec [facility] Comment: Interpretive Data Therapeutic heparin range: 60.0 - 94.0 seconds. Based on correlation with therapeutic heparin activity range of 0.3-0.7 Units/mL. Current interpretive data was last revised on 2020. Blood 06/12/2022 1:52 AM CDT 06/12/2022 2:15 AM CDT Narrative [facility] - 06/12/2022 2:39 AM CDT Check aPTT 6 hours after the start of Heparin infusion and 6 hours after any change in Heparin rate. (Target aPTT 61-80 seconds). Call Nephrology if outside range. Catherine Adams MD LAB BLOOD ORDERABLES Final Result Performing Organization Address [facility] [place] [address] * (ABNORMAL) POCT glucose (06/11/2022 11:32 PM CDT) Glucose, POC 206(H) 70 - 199 mg/dL [facility] Blood 06/11/2022 11:3 2 PM CDT 06/11/2022 11:32 PM CDT Catherine Adams MD LAB POCT ORDERABLES - DEVIC E Final Result Performing Organization Address [facility] [place] Co de Phone Number [facility] [place] [address] * (ABNORMAL) Manual Differential (06/11/2022 11:25 PM CDT) Differential Manual [facility] Cells Counted 119 [facility] Neutrophil abs 10.8(H) 1.7 - 6.5 K/cumm [facility] Imm gran abs 0.6(H) 0.0 - 0.1 K/cumm [facility] Lymphocyte abs 1.4 0.8 - 3.3 K/cumm [facility] Monocyte abs 0.6 0.2 - 0.8 K/cumm [facility] Eosinophil abs 0.2 0.0 - 0.5 K/cumm [facility] Neutrophil pct 79.9 % [facility] Comment: Interpretive Data Percent cell count reference ranges are not reported, since discordance with absolute values may lead to misinterpretation of CBC data. Current Interpretive Data was last revised on 2017. Lymphocyte pct 10.1 % [facility] Comment: Interpretive Data Percent cell count reference ranges are not reported, since discordance with absolute values may lead to misinterpretation of CBC data. Current Interpretive Data was last revised on 2017. Monocyte pct 4.2 % [facility] Comment: Interpretive Data Percent cell count reference ranges are not reported, since discordance with absolute values may lead to misinterpretation of CBC data. Current Interpretive Data was last revised on 2017. Eosinophil pct 1.7 % [facility] Comment: Interpretive Data Percent cell count reference ranges are not reported, since discordance with absolute values may lead to misinterpretation of CBC data. Current Interpretive Data was last revised on 2017. Metamyelocyte pct 0.8 % [facility] Myelocyte pct 2.5 % [facility] Promyelocyte pct 0.8 % [facility] Blood 06/11/2022 11:2 5 PM CDT 06/11/2022 11:39 PM CDT us Jeffrey Green MD LAB BLOOD ORDERABLES Final Result [facility] [place] [address] * (ABNORMAL) CBC with auto differential (06/11/2022 11:25 PM CDT) Pathologist [facility] WBC 13.5(H) 3.8 - 9.9 K/cumm [facility] Hgb 7.9(L) 13.0 - 17.5 g/dL [facility] Hct 23.7(L) 38.9 - 50.3 % [facility] Plt 188 150 - 400 K/cumm [facility] MPV 10.7 9.1 - 12.3 fL [facility] RBC 2.55(L) 4.30 - 5.80 M/cumm [facility] MCV 92.9 81.3 - 96.4 fL [facility] MCH 31.0 27.1 - 33.3 pg [facility] MCHC 33.3 32.3 - 35.7 g/dL [facility] RDW CV 13.3 11.1 - 14.9 % [facility] RDW SD 45.1 35.7 - 48.1 fL [facility] NRBC abs 0.02(H) 0.00 - 0.01 K/cumm [facility] Blood 06/11/2022 11:2 5 PM CDT 06/11/2022 11:35 PM CDT Jeffrey Green MD LAB BLOOD ORDERABLES Final Result [facility] [place] [address] * (ABNORMAL) Blood gas, arterial (06/11/2022 11:25 PM CDT) [facility] pH, Art 7.37 7.35 - 7.45 [facility] PCO2, Arterial 41 35 - 45 mmHg [facility] PO2, Arterial 91 83 - 108 mmHg [facility] HCO3 Art (Calculated) 24 20 - 30 mmol/L [facility] BE, art -1 mmol/L [facility] Comment: Interpretive Data No Reference Range Established Current Interpretive Data was last revised on 2017 O2 Sat Art (Measured) 97(H) 90 - 95 % [facility] Blood 06/11/2022 11:2 5 PM CDT 06/11/2022 11:31 PM CDT Marcelina Lo OPTICAL INSTRUMENT INSPECTOR LAB BLOOD ORDERABLES Final Re sult Performing Organization Address [facility] [place] Co de Phone Number [facility] [place] [address] * (ABNORMAL) Blood gas, arterial (06/11/2022 8:17 PM CDT) pH, Art 7.38 7.35 - 7.45 [facility] PCO2, Arterial 39 35 - 45 mmHg [facility] PO2, Arterial 111(H) 83 - 108 mmHg [facility] HCO3 Art (Calculated) 23 20 - 30 mmol/L [facility] BE, art -2 mmol/L [facility] Comment: Interpretive Data No Reference Range Established Current Interpretive Data was last revised on 2017 O2 Sat Art (Measured) 98(H) 90 - 95 % [facility] Blood 06/11/2022 8:17 PM CDT 06/11/2022 8:23 PM CDT Marcelina Lo OPTICAL INSTRUMENT INSPECTOR LAB BLOOD ORDERABLES Final Re sult Performing Organization Address [facility] [place] [place] [address] * Lactate, whole blood (06/11/2022 8:17 PM CDT) Pathologist [facility] Lactate, bld 0.8 0.7 - 2.0 mmol/L [facility] Blood 06/11/2022 8:17 PM CDT 06/11/2022 8:23 PM CDT Marcelina Lo OPTICAL INSTRUMENT INSPECTOR LAB BLOOD ORDERABLES Final Re sult Performing Organization Address [facility] [place] Co de Phone Number [facility] [place] [address] * (ABNORMAL) eGFR (06/11/2022 8:12 PM CDT) eGFR 24(L) 90 - 130 mL/min/1. 73 m2 [facility] Comment: Interpretive Data Reference Interval Normal ?>/= [...] Adams MD LAB BLOOD ORDERABLES Final Result [facility] [place] [address] * Magnesium (06/11/2022 8:12 PM CDT) Magnesium 2.5 1.4 - 2.5 mg/dL [facility] Blood 06/11/2022 8:12 PM CDT 06/11/2022 8:23 PM CDT us Catherine Adams MD LAB BLOOD ORDERABLES Final Result [facility] [place] [address] * (ABNORMAL) Comprehensive metabolic panel (06/11/2022 8:12 PM CDT) Pathologist [facility] Sodium 135 135 - 145 mmol/L [facility] Potassium, pl 4.7 3.3 - 4.9 mmol/L [facility] Chloride 101 97 - 110 mmol/L [facility] CO2 23 22 - 32 mmol/L [facility] Anion gap 11 2 - 15 mmol/L [facility] BUN 28(H) 8 - 25 mg/dL [facility] Creatinine 3.01(H) 0.80 - 1.30 mg/dL [facility] Glucose 185 70 - 199 mg/dL [facility] Comment: Interpretive Data Fasting glucose >/= [...] Calcium 8.1(L) 8.5 - 10.3 mg/dL [facility] Bilirubin, total 0.9 0.1 - 1.2 mg/dL [facility] Protein, pl 5.5(L) 6.5 - [...] Final Result Performing Organization Address [facility] [place] de Phone Number [facility] [place] [address] * (ABNORMAL) Triglycerides (06/11/2022 8:12 PM CDT) Triglycerides 345(H) <=149 mg/dL [facility] Comment: Interpretive Data Ages < or [...] PM CDT 06/11/2022 8:23 PM CDT Narrative [facility] - 06/11/2022 8:53 PM CDT While on propofol infusion. Catherine Adams MD LAB BLOOD ORDERABLES Final Result Performing Organization Address [facility] de Phone Number [facility] [place] [address] * Phosphorus (06/11/2022 8:12 PM CDT) Phosphorus, pl 4.4 2.3 - 4.5 mg/dL [facility] Blood 06/11/2022 8:12 PM CDT 06/11/2022 8:23 PM CDT Marcelina Lo OPTICAL INSTRUMENT INSPECTOR LAB BLOOD ORDERABLES Final Re sult Performing Organization Address City/[facility]/[place] [address] * Beta-hydroxybutyrate (06/11/2022 8:12 PM CDT) [facility] Beta-Hydroxybut yrate 0.3 0.0 - 0.5 mmol/L [facility] Blood 06/11/2022 8:12 PM CDT 06/11/2022 8:23 PM CDT Marcelina Lo OPTICAL INSTRUMENT INSPECTOR LAB BLOOD ORDERABLES Edited R esult - Final Performing Organization Address [facility] [place] [place] [address] * Lipase (06/11/2022 8:12 PM CDT) Pathologist [facility] Lipase 15 10 - 99 Units/L [facility] Blood 06/11/2022 8:12 PM CDT 06/11/2022 8:23 PM CDT Marcelina Lo OPTICAL INSTRUMENT INSPECTOR LAB BLOOD ORDERABLES Final Re sult Performing Organization Address [facility] [place] Co de Phone Number [facility] [place] [address] * POCT glucose (06/11/2022 8:07 PM CDT) Glucose, POC 169 70 - 199 mg/dL [facility] Blood 06/11/2022 8:07 PM CDT 06/11/2022 8:07 PM CDT Catherine Adams MD LAB POCT ORDERABLES - DEVIC E Final Result [facility] [place] [address] * XR Chest 1 View (06/11/2022 4:07 PM CDT) Anatomical Region Laterality Modality Body, Chest N/A Computed Radiogr aphy 06/11/2022 5:24 PM CDT Impressions 06/11/2022 5:24 PM CDT Comparison made to examination of 06/11/2022 at 0543 hours Tip of the endotracheal tube projects approximately 5.5 cm above the boni. ??Nasogastric tube extends below the diaphragm with the tip excluded from the [id number]. ??Left internal jugular catheter projects at superior [...] diaphragm with the tip excluded from the [id number]. Left internal jugular catheter projects at superior [...] Potassium, bld 4.5 3.3 - 4.9 mmol/L [facility] Blood 06/11/2022 3:21 PM CDT 06/11/2022 3:29 PM CDT Marcelina Lo OPTICAL INSTRUMENT INSPECTOR LAB BLOOD ORDERABLES Final Re sult [facility] [place] [address] * Lactate, whole blood (06/11/2022 3:21 PM CDT) Pathologist [facility] Lactate, bld 0.9 0.7 - 2.0 mmol/L [facility] Blood 06/11/2022 3:21 PM CDT 06/11/2022 3:29 PM CDT Marcelina Lo OPTICAL INSTRUMENT INSPECTOR LAB BLOOD ORDERABLES Final Re sult Performing Organization Address City/[facility]/ZIP Co de Phone Number [facility] [place] [address] * (ABNORMAL) Blood gas, arterial (06/11/2022 3:21 PM CDT) pH, Art 7.39 7.35 - 7.45 [facility] PCO2, Arterial 39 35 - 45 mmHg [facility] PO2, Arterial 92 83 - 108 mmHg [facility] HCO3 Art (Calculated) 24 20 - 30 mmol/L [facility] BE, art -1 mmol/L [facility] Comment: Interpretive Data No Reference Range Established Current Interpretive Data was last revised on 2017 O2 Sat Art (Measured) 96(H) 90 - 95 % [facility] Blood 06/11/2022 3:21 PM CDT 06/11/2022 3:29 PM CDT Marcelina Lo NP LAB BLOOD ORDERABLES Final Re sult Performing Organization Address [facility] [place] de Phone Number [facility] [place] [address] * aPTT (06/11/2022 3:21 PM CDT) aPTT 30 27 - 37 sec [facility] Comment: Interpretive Data Therapeutic heparin range: 60.0 - 94.0 seconds. Based on correlation with therapeutic heparin activity range of 0.3-0.7 Units/mL. Current interpretive data was last revised on 2020. Blood 06/11/2022 3:21 PM CDT 06/11/2022 3:30 PM CDT Catherine Adams MD LAB BLOOD ORDERABLES Final Result Performing Organization Address [facility] de Phone Number [facility] [place] [address] * Protime-INR (06/11/2022 3:21 PM CDT) PT 10.7 9.2 - 13.5 sec [facility] INR 1.0 0.9 - 1.2 [facility] Comment: Interpretive data Oral anticoagulant therapeutic ranges: Venous thromboembolism prophylaxis or treatment: 2.0-3.0 CARDIOLOGY Standard range: 2.0-3.0 High-intensity range: 2.5-3.5 Refer to indication-specific guidelines for appropriate target ranges for prosthetic heart valve replacement. Current interpretive data was last revised on 2019. Blood 06/11/2022 3:21 PM CDT 06/11/2022 3:30 PM CDT Catherine Adams MD LAB BLOOD ORDERABLES Final Result Performing Organization Address [facility] Co de Phone Number [facility] [place] [address] * (ABNORMAL) CBC without differential (06/11/2022 3:21 PM CDT) WBC 10.7(H) 3.8 - 9.9 K/cumm [facility] Hgb 7.6(L) 13.0 - 17.5 g/dL [facility] Hct 22.8(L) 38.9 - 50.3 % [facility] Plt 175 150 - 400 K/cumm [facility] MPV 10.7 9.1 - 12.3 fL [facility] RBC 2.45(L) 4.30 - 5.80 M/cumm [facility] MCV 93.1 81.3 - 96.4 fL [facility] MCH 31.0 27.1 - 33.3 pg [facility] MCHC 33.3 32.3 - 35.7 g/dL [facility] RDW CV 13.1 11.1 - 14.9 % [facility] RDW SD 44.3 35.7 - 48.1 fL [facility] NRBC abs 0.02(H) 0.00 - 0.01 K/cumm [facility] Blood 06/11/2022 3:21 PM CDT 06/11/2022 3:30 PM CDT Catherine Adams MD LAB BLOOD ORDERABLES Final Result [facility] [place] [address] * POCT glucose (06/11/2022 3:20 PM CDT) Glucose, POC 130 70 - 199 mg/dL [facility] Blood 06/11/2022 3:20 PM CDT 06/11/2022 3:20 PM CDT Catherine Adams MD LAB POCT ORDERABLES - DEVIC E Final Result [facility] [place] [address] * CT Chest Abdomen Pelvis WO Contrast [...] CDT) pH, Art 7.38 7.35 - 7.45 [facility] PCO2, Arterial 37 35 - 45 mmHg [facility] PO2, Arterial 139(H) 83 - 108 mmHg [facility] HCO3 Art (Calculated) 22 20 - 30 mmol/L [facility] BE, art -3 mmol/L [facility] Comment: Interpretive Data No Reference Range Established Current Interpretive Data was last revised on 2017 O2 Sat Art (Measured) 98(H) 90 - 95 % [facility] Blood 06/11/2022 12:1 1 PM CDT 06/11/2022 12:23 PM CDT Catherine Adams MD LAB BLOOD ORDERABLES Final Result [facility] [place] [address] * POCT glucose (06/11/2022 12:10 PM CDT) Glucose, POC 142 70 - 199 mg/dL [facility] Blood 06/11/2022 12:1 0 PM CDT 06/11/2022 12:10 PM CDT us Catherine Adams MD LAB POCT ORDERABLES - DEVIC E Final Result [facility] [place] [address] * (ABNORMAL) Manual Differential (06/11/2022 8:48 AM CDT) Differential Manual [facility] Cells Counted 120 [facility] Neutrophil abs 7.3(H) 1.7 - 6.5 K/cumm [facility] Imm gran abs 1.0(H) 0.0 - 0.1 K/cumm [facility] Lymphocyte abs 1.4 0.8 - 3.3 K/cumm [facility] Monocyte abs 0.4 0.2 - 0.8 K/cumm [facility] Eosinophil abs 0.3 0.0 - 0.5 K/cumm [facility] Neutrophil pct 70.0 % [facility] Comment: Interpretive Data Percent cell count reference ranges are not reported, since discordance with absolute values may lead to misinterpretation of CBC data. Current Interpretive Data was last revised on 2017. Lymphocyte pct 13.3 % [facility] Comment: Interpretive Data Percent cell count reference ranges are not reported, since discordance with absolute values may lead to misinterpretation of CBC data. Current Interpretive Data was last revised on 2017. Monocyte pct 4.2 % [facility] Comment: Interpretive Data Percent cell count reference ranges are not reported, since discordance with absolute values may lead to misinterpretation of CBC data. Current Interpretive Data was last revised on 2017. Eosinophil pct 3.3 % [facility] Comment: Interpretive Data Percent cell count reference ranges are not reported, since discordance with absolute values may lead to misinterpretation of CBC data. Current Interpretive Data was last revised on 2017. Metamyelocyte pct 6.7 % [facility] Myelocyte pct 2.5 % [facility] Blood 06/11/2022 8:48 AM CDT 06/11/2022 9:14 AM CDT us Catherine Adams MD LAB BLOOD ORDERABLES Final Result Performing Organization Address [facility] [place]/[facility] Co de Phone Number ALESSANDRA CARRION [facility] [place] [address] * (ABNORMAL) eGFR (06/11/2022 8:48 AM CDT) eGFR 30(L) 90 - 130 mL/min/1. 73 m2 [facility] Comment: Interpretive Data Reference Interval [...] BLOOD ORDERABLES Final Result Performing Organization Address City/[facility]/ZIP Co de Phone Number [facility] [place] [address] * Lactate, whole blood (06/11/2022 8:48 AM CDT) Pathologist [facility] Lactate, bld 1.1 0.7 - 2.0 mmol/L [facility] Blood 06/11/2022 8:48 AM CDT 06/11/2022 8:55 AM CDT Marcelina Lo OPTICAL INSTRUMENT INSPECTOR LAB BLOOD ORDERABLES Final Re sult [facility] [place] [address] * Magnesium (06/11/2022 8:48 AM CDT) [facility] Magnesium 2.5 1.4 - 2.5 mg/dL [facility] Blood 06/11/2022 8:48 AM CDT 06/11/2022 9:02 AM CDT Marcelina Lo OPTICAL INSTRUMENT INSPECTOR LAB BLOOD ORDERABLES Final Re sult Performing Organization Address City/[facility]/ZIP Co de Phone Number [facility] [place] [address] * (ABNORMAL) Comprehensive metabolic panel (06/11/2022 8:48 AM CDT) [facility] Sodium 134(L) 135 - 145 mmol/L [facility] Potassium, pl 4.8 3.3 - 4.9 mmol/L [facility] Chloride 100 97 - 110 mmol/L [facility] CO2 23 22 - 32 mmol/L [facility] Anion gap 11 2 - 15 mmol/L [facility] BUN 22 8 - 25 mg/dL [facility] Creatinine 2.53(H) 0.80 - 1.30 mg/dL [facility] Glucose 175 70 - 199 mg/dL [facility] Comment: Interpretive Data Fasting glucose >/= [...] 2017. Calcium 8.4(L) 8.5 - 10.3 mg/dL [facility] Bilirubin, total 0.9 0.1 - 1.2 mg/dL [facility] Protein, pl 6.0(L) 6.5 - 8.5 g/dL [facility] Albumin 2.8(L) 3.5 - 5.0 g/dL [facility] Alk phos 200(H) 40 - 130 Units/L [facility] ALT 47 7 - 55 Units/L [facility] AST 100(H) 10 - 50 Units/L [facility] Blood 06/11/2022 8:48 AM CDT 06/11/2022 9:02 AM CDT us Marcelina Lo OPTICAL INSTRUMENT INSPECTOR LAB BLOOD ORDERABLES Final Re sult [facility] [place] [address] * (ABNORMAL) CBC with auto differential (06/11/2022 8:48 AM CDT) WBC 10.4(H) 3.8 - 9.9 K/cumm [facility] Hgb 7.8(L) 13.0 - 17.5 g/dL [facility] Hct 23.4(L) 38.9 - 50.3 % [facility] Plt 191 150 - 400 K/cumm [facility] MPV 10.7 9.1 - 12.3 fL [facility] RBC 2.49(L) 4.30 - 5.80 M/cumm [facility] MCV 94.0 81.3 - 96.4 fL [facility] MCH 31.3 27.1 - 33.3 pg [facility] MCHC 33.3 32.3 - 35.7 g/dL [facility] RDW CV 13.2 11.1 - 14.9 % [facility] RDW SD 45.3 35.7 - 48.1 fL [facility] NRBC abs 0.03(H) 0.00 - 0.01 K/cumm [facility] Blood 06/11/2022 8:48 AM CDT 06/11/2022 9:02 AM CDT us Marcelina Lo NP LAB BLOOD ORDERABLES Final Re sult Performing Organization Address City/[facility]/ZIP Co de Phone Number [facility] [place] [address] * POCT glucose (06/11/2022 8:46 AM CDT) Glucose, POC 169 70 - 199 mg/dL [facility] Blood 06/11/2022 8:46 AM CDT 06/11/2022 8:46 AM CDT us Catherine Adams MD LAB POCT ORDERABLES - DEVIC E Final Result Performing Organization Address [facility] [place]/[facility] Co de Phone Number [facility] [place] [address] * (ABNORMAL) Blood gas, arterial (06/11/2022 6:34 AM CDT) pH, Art 7.43 7.35 - 7.45 [facility] PCO2, Arterial 34(L) 35 - 45 mmHg [facility] PO2, Arterial 87 83 - 108 mmHg [facility] HCO3 Art (Calculated) 24 20 - 30 mmol/L [facility] BE, art -1 mmol/L [facility] Comment: Interpretive Data No Reference Range Established Current Interpretive Data was last revised on 2017 O2 Sat Art (Measured) 97(H) 90 - 95 % [facility] Blood 06/11/2022 6:34 AM CDT 06/11/2022 6:44 AM CDT Catherine Adams MD LAB BLOOD ORDERABLES Final Result ALESSANDRA AVILA [facility] [place] [address] * XR Chest 1 View (06/11/2022 5:48 [...] CDT) pH, Art 7.42 7.35 - 7.45 [facility] PCO2, Arterial 36 35 - 45 mmHg [facility] PO2, Arterial 115(H) 83 - 108 mmHg [facility] HCO3 Art (Calculated) 24 20 - 30 mmol/L [facility] BE, art -1 mmol/L [facility] Comment: Interpretive Data No Reference Range Established Current Interpretive Data was last revised on 2017 O2 Sat Art (Measured) 98(H) 90 - 95 % [facility] Blood 06/11/2022 3:31 AM CDT 06/11/2022 4:00 AM CDT Marcelina Lo OPTICAL INSTRUMENT INSPECTOR LAB BLOOD ORDERABLES Final Re sult Performing Organization Address [facility] [place]/[facility] de Phone Number [facility] [place] [address] * Lactate, whole blood (06/11/2022 3:31 AM CDT) Pathologist [facility] Lactate, bld 1.1 0.7 - 2.0 mmol/L [facility] Blood 06/11/2022 3:31 AM CDT 06/11/2022 4:00 AM CDT us Marcelina Lo OPTICAL INSTRUMENT INSPECTOR LAB BLOOD ORDERABLES Final Re sult Performing Organization Address [facility] [place]/[facility] de Phone Number [facility] [place] [address] * POCT glucose (06/11/2022 3:28 AM CDT) Glucose, POC 155 70 - 199 mg/dL [facility] Blood 06/11/2022 3:28 AM CDT 06/11/2022 3:28 AM CDT Catherine Adams MD LAB POCT ORDERABLES - DEVIC E Final Result Performing Organization Address [facility] [place] Co de Phone Number [facility] [place] [address] * Blood culture Blood Antecubital, right (06/11/2022 [...] organism identification may be performed using the [employer] Gram-Positive Blood Culture Assay. This assay detects microbial DNA in positive blood culture broth via hybridization of target DNA to capture oligonucleotides on a microarray. This assay has been cleared by the [place] Food and Drug Administration and its performance characteristics have been verified by the [facility] Microbiology Laboratory. 5. ?For questions about this culture, contact the Microbiology Laboratory at [phone]. Interpretive data was last revised on 2020. Catherine Adams MD LAB MICROBIOLOGY - GENERAL ORDERABLES Final Result ALESSANDRA CARRION [facility] Department [place] [address] * Blood culture Blood Antecubital, left (06/11/2022 [...] organism identification may be performed using the [employer] Gram-Positive Blood Culture Assay. This assay detects microbial DNA in positive blood culture broth via hybridization of target DNA to capture oligonucleotides on a microarray. This assay has been cleared by the [place] Food and Drug Administration and its performance characteristics have been verified by the [facility] Microbiology Laboratory. 5. ?For questions about this culture, contact the Microbiology Laboratory at [phone]. Interpretive data was last revised on 2020. us Catherine Adams MD LAB MICROBIOLOGY - GENERAL ORDERABLES Final Result ALESSANDRA CARRION [facility] [place] [address] * POCT glucose (06/11/2022 12:49 AM CDT) Glucose, POC 165 70 - 199 mg/dL [facility] Blood 06/11/2022 12:4 9 AM CDT 06/11/2022 12:49 AM CDT us Catherine Adams MD LAB POCT ORDERABLES - DEVIC E Final Result Performing Organization Address [facility] [place]/[facility] de Phone Number [facility] [place] [address] * POCT glucose (06/10/2022 10:28 PM CDT) Glucose, POC 163 70 - 199 mg/dL [facility] Blood 06/10/2022 10:2 8 PM CDT 06/10/2022 10:28 PM CDT us Catherine Adams MD LAB POCT ORDERABLES - DEVIC E Final Result Performing Organization Address [facility] [place]/[facility] de Phone Number [facility] [place] [address] * (ABNORMAL) eGFR (06/10/2022 10:27 PM CDT) Pathologist [facility] eGFR 33(L) 90 - 130 mL/min/1. 73 m2 [facility] Comment: Interpretive Data Reference Interval Normal [...] Adams MD LAB BLOOD ORDERABLES Final Result [facility] Department [place] [address] * (ABNORMAL) Manual Differential (06/10/2022 10:27 PM CDT) Differential Manual [facility] Cells Counted 118 [facility] Neutrophil abs 13.0(H) 1.7 - 6.5 K/cumm [facility] Imm gran abs 0.6(H) 0.0 - 0.1 K/cumm [facility] Lymphocyte abs 1.3 0.8 - 3.3 K/cumm [facility] Monocyte abs 1.5(H) 0.2 - 0.8 K/cumm [facility] Eosinophil abs 0.7(H) 0.0 - 0.5 K/cumm [facility] Basophil abs 0.1 0.0 - 0.1 K/cumm [facility] Neutrophil pct 75.6 % [facility] Comment: Interpretive Data Percent cell count reference ranges are not reported, since discordance with absolute values may lead to misinterpretation of CBC data. Current Interpretive Data was last revised on 2017. Lymphocyte pct 7.6 % [facility] Comment: Interpretive Data Percent cell count reference ranges are not reported, since discordance with absolute values may lead to misinterpretation of CBC data. Current Interpretive Data was last revised on 2017. Monocyte pct 8.5 % [facility] Comment: Interpretive Data Percent cell count reference ranges are not reported, since discordance with absolute values may lead to misinterpretation of CBC data. Current Interpretive Data was last revised on 2017. Eosinophil pct 4.2 % [facility] Comment: Interpretive Data Percent cell count reference ranges are not reported, since discordance with absolute values may lead to misinterpretation of CBC data. Current Interpretive Data was last revised on 2017. Basophil pct 0.8 % [facility] Comment: Interpretive Data Percent cell count reference ranges are not reported, since discordance with absolute values may lead to misinterpretation of CBC data. Current Interpretive Data was last revised on 2017. Metamyelocyte pct 1.7 % [facility] Myelocyte pct 0.8 % [facility] Promyelocyte pct 0.8 % [facility] Blood 06/10/2022 10:2 7 PM CDT 06/10/2022 10:44 PM CDT Catherine Adams MD LAB BLOOD ORDERABLES Final Result [facility] [place] [address] * (ABNORMAL) Comprehensive metabolic panel (06/10/2022 10:27 PM CDT) Sodium 136 135 - 145 mmol/L [facility] Potassium, pl 4.9 3.3 - 4.9 mmol/L [facility] Chloride 99 97 - 110 mmol/L [facility] CO2 25 22 - 32 mmol/L [facility] Anion gap 12 2 - 15 mmol/L [facility] BUN 20 8 - 25 mg/dL [facility] Creatinine 2.33(H) 0.80 - 1.30 mg/dL [facility] Glucose 158 70 - 199 mg/dL [facility] Comment: Interpretive Data Fasting glucose >/= [...] 2017. Calcium 8.6 8.5 - 10.3 mg/dL [facility] Bilirubin, total 1.0 0.1 - 1.2 mg/dL [facility] Protein, pl 6.2(L) 6.5 - 8.5 g/dL [facility] Albumin 3.1(L) 3.5 - 5.0 g/dL [facility] Alk phos 216(H) 40 - 130 Units/L [facility] ALT 49 7 - 55 Units/L [facility] AST 114(H) 10 - 50 Units/L [facility] Blood 06/10/2022 10:2 7 PM CDT 06/10/2022 10:37 PM CDT Catherine Adams MD LAB BLOOD ORDERABLES Final Result Performing Organization Address City/[facility]/ZIP Co de Phone Number [facility] [place] [place] [address] * Magnesium (06/10/2022 10:27 PM CDT) Magnesium 2.5 1.4 - 2.5 mg/dL [facility] Blood 06/10/2022 10:2 7 PM CDT 06/10/2022 10:37 PM CDT Catherine Adams MD LAB BLOOD ORDERABLES Final Result [facility] [place] [address] * Lactate, whole blood (06/10/2022 10:27 PM CDT) Lactate, bld 1.1 0.7 - 2.0 mmol/L [facility] Blood 06/10/2022 10:2 7 PM CDT 06/10/2022 10:36 PM CDT Marcelina Lo OPTICAL INSTRUMENT INSPECTOR LAB BLOOD ORDERABLES Final Re sult Performing Organization Address City/[facility] Co de Phone Number [facility] [place] [address] * (ABNORMAL) Blood gas, arterial (06/10/2022 10:27 PM CDT) Pathologist [facility] pH, Art 7.39 7.35 - 7.45 [facility] PCO2, Arterial 37 35 - 45 mmHg [facility] PO2, Arterial 98 83 - 108 mmHg [facility] HCO3 Art (Calculated) 23 20 - 30 mmol/L [facility] BE, art -2 mmol/L [facility] Comment: Interpretive Data No Reference Range Established Current Interpretive Data was last revised on 2017 O2 Sat Art (Measured) 97(H) 90 - 95 % [facility] Blood 06/10/2022 10:2 7 PM CDT 06/10/2022 10:36 PM CDT Marcelina Lo OPTICAL INSTRUMENT INSPECTOR LAB BLOOD ORDERABLES Final Re sult Performing Organization Address [facility] [place]/[facility] Co de Phone Number [facility] [place] [address] * Phosphorus (06/10/2022 10:27 PM CDT) Pathologist [facility] Phosphorus, pl 3.6 2.3 - 4.5 mg/dL [facility] Blood 06/10/2022 10:2 7 PM CDT 06/10/2022 10:37 PM CDT Marcelina Lo OPTICAL INSTRUMENT INSPECTOR LAB BLOOD ORDERABLES Final Re sult Performing Organization Address City/[facility]/ZIP Co de Phone Number [facility] [place] [address] * (ABNORMAL) Beta-hydroxybutyrate (06/10/2022 10:27 PM CDT) [facility] Beta-Hydroxybut yrate 1.1(H) 0.0 - 0.5 mmol/L [facility] Blood 06/10/2022 10:2 7 PM CDT 06/10/2022 10:37 PM CDT Marcelina Lo OPTICAL INSTRUMENT INSPECTOR LAB BLOOD ORDERABLES Edited R esult - Final Performing Organization Address [facility] [place]/[facility]/ZIP Co de Phone Number [facility] [place] [address] * Lipase (06/10/2022 10:27 PM CDT) [facility] Lipase 26 10 - 99 Units/L [facility] Blood 06/10/2022 10:2 7 PM CDT 06/10/2022 10:37 PM CDT Marcelina Lo OPTICAL INSTRUMENT INSPECTOR LAB BLOOD ORDERABLES Final Re sult Performing Organization Address [facility] [place]/[facility] de Phone Number [facility] [place] [address] * (ABNORMAL) CBC with auto differential (06/10/2022 10:27 PM CDT) [facility] WBC 17.2(H) 3.8 - 9.9 K/cumm [facility] Hgb 9.0(L) 13.0 - 17.5 g/dL [facility] Hct 27.0(L) 38.9 - 50.3 % [facility] Plt 274 150 - 400 K/cumm [facility] MPV 10.7 9.1 - 12.3 fL [facility] RBC 2.88(L) 4.30 - 5.80 M/cumm [facility] MCV 93.8 81.3 - 96.4 fL [facility] MCH 31.3 27.1 - 33.3 pg [facility] MCHC 33.3 32.3 - 35.7 g/dL [facility] RDW CV 13.5 11.1 - 14.9 % [facility] RDW SD 46.1 35.7 - 48.1 fL [facility] NRBC abs 0.08(H) 0.00 - 0.01 K/cumm [facility] Blood 06/10/2022 10:2 7 PM CDT 06/10/2022 10:37 PM CDT us Marcelina Lo OPTICAL INSTRUMENT INSPECTOR LAB BLOOD ORDERABLES Final Re sult Performing Organization Address City/[facility]/ZIP Co de Phone Number [facility] [place] [address] * POCT glucose (06/10/2022 5:13 PM CDT) Glucose, POC 106 70 - 199 mg/dL [facility] Blood 06/10/2022 5:13 PM CDT 06/10/2022 5:13 PM CDT us Catherine Adams MD LAB POCT ORDERABLES - DEVIC E Final Result Performing Organization Address City/[facility]/ZIP Co de Phone Number [facility] [place] [address] * (ABNORMAL) Triglycerides (06/10/2022 5:13 PM CDT) Triglycerides 401(H) <=149 mg/dL [facility] Comment: Interpretive Data Ages < or [...] PM CDT 06/10/2022 5:39 PM CDT Narrative [facility] - 06/10/2022 6:07 PM CDT While on propofol infusion. us Catherine Adams MD LAB BLOOD ORDERABLES Final Result Performing Organization Address [facility] [place]/[facility] de Phone Number [facility] [place] [address] * (ABNORMAL) Blood gas, arterial (06/10/2022 2:24 PM CDT) pH, Art 7.38 7.35 - 7.45 [facility] PCO2, Arterial 39 35 - 45 mmHg [facility] PO2, Arterial 66(L) 83 - 108 mmHg [facility] HCO3 Art (Calculated) 24 20 - 30 mmol/L [facility] BE, art -2 mmol/L [facility] Comment: Interpretive Data No Reference Range Established Current Interpretive Data was last revised on 2017 O2 Sat Art (Measured) 91 90 - 95 % [facility] Blood 06/10/2022 2:24 PM CDT 06/10/2022 2:31 PM CDT us Marcelina Lo NP LAB BLOOD ORDERABLES Final Re sult Performing Organization Address [facility] [place]/[facility] Co de Phone Number [facility] [place] [address] * POCT glucose (06/10/2022 1:13 PM CDT) Glucose, POC 189 70 - 199 mg/dL [facility] Blood 06/10/2022 1:13 PM CDT 06/10/2022 1:13 PM CDT Catherine Adams MD LAB POCT ORDERABLES - DEVIC E Final Result Performing Organization Address [facility] [place]/[facility] Co de Phone Number [facility] [place] [address] * Lactate, whole blood (06/10/2022 1:12 PM CDT) Pathologist [facility] Lactate, bld 1.1 0.7 - 2.0 mmol/L [facility] Blood 06/10/2022 1:12 PM CDT 06/10/2022 1:25 PM CDT us Marcelina Lo OPTICAL INSTRUMENT INSPECTOR LAB BLOOD ORDERABLES Final Re sult Performing Organization Address [facility] [place]/[facility] de Phone Number [facility] [place] [address] * (ABNORMAL) Blood gas, arterial (06/10/2022 1:12 PM CDT) Pathologist [facility] pH, Art 7.40 7.35 - 7.45 [facility] PCO2, Arterial 36 35 - 45 mmHg [facility] PO2, Arterial 67(L) 83 - 108 mmHg [facility] HCO3 Art (Calculated) 23 20 - 30 mmol/L [facility] BE, art -2 mmol/L [facility] Comment: Interpretive Data No Reference Range Established Current Interpretive Data was last revised on 2017 O2 Sat Art (Measured) 92 90 - 95 % [facility] Blood 06/10/2022 1:12 PM CDT 06/10/2022 1:25 PM CDT us Marcelina Lo OPTICAL INSTRUMENT INSPECTOR LAB BLOOD ORDERABLES Final Re sult ALESSANDRA CARRION [facility] [place] [address] * REMOVE VAD - DIFFERENT SESSION (06/10/2022 [...] pressure. 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 ??Impella is currently weaned to P2 and ready for removal. ?? Pre close system had been used with two 6 [place] pro style placed in orthogonal fashion prior [...] time, low range (06/10/2022 9:56 AM CDT) [facility] ACT 183(H) 123 - 168 sec [facility] Blood 06/10/2022 9:56 AM CDT 06/10/2022 9:56 AM CDT Catherine Adams MD LAB POCT ORDERABLES - DEVIC E Final Result Performing Organization Address City/[facility] Co de Phone Number [facility] [place] [address] * (ABNORMAL) POCT Activated clotting time, low range (06/10/2022 8:08 AM CDT) [facility] ACT 214(H) 123 - 168 sec [facility] Blood 06/10/2022 8:08 AM CDT 06/10/2022 8:08 AM CDT Catherine Adams MD LAB POCT ORDERABLES - DEVIC E Final Result Performing Organization Address City/[facility]/ZIP Co de Phone Number [facility] [place] [address] * POCT glucose (06/10/2022 7:54 AM CDT) Glucose, POC 138 70 - 199 mg/dL [facility] Blood 06/10/2022 7:54 AM CDT 06/10/2022 7:54 AM CDT us Catherine Adams MD LAB POCT ORDERABLES - DEVIC E Final Result [facility] [place] [address] * (ABNORMAL) eGFR (06/10/2022 7:52 AM CDT) [facility] eGFR 31(L) 90 - 130 mL/min/1. 73 m2 [facility] Comment: Interpretive Data Reference Interval Normal [...] Adams MD LAB BLOOD ORDERABLES Final Result [facility] [place] [address] * (ABNORMAL) Differential, auto (06/10/2022 7:52 AM CDT) Neutrophil abs 6.7(H) 1.7 - 6.5 K/cumm [facility] Imm gran abs 1.0(H) 0.0 - 0.1 K/cumm [facility] Lymphocyte abs 1.4 0.8 - 3.3 K/cumm [facility] Monocyte abs 0.9(H) 0.2 - 0.8 K/cumm [facility] Eosinophil abs 0.3 0.0 - 0.5 K/cumm [facility] Basophil abs 0.0 0.0 - 0.1 K/cumm [facility] Neutrophil pct 65.5 % [facility] Comment: Confirmed by smear review Interpretive Data Percent cell count reference ranges are not reported, since discordance with absolute values may lead to misinterpretation of CBC data. Current Interpretive Data was last revised on 2017. Imm gran pct 9.4 % [facility] Comment: Interpretive Data Percent cell count reference ranges are not reported, since discordance with absolute values may lead to misinterpretation of CBC data. Current Interpretive Data was last revised on 2017. Lymphocyte pct 13.4 % [facility] Comment: Interpretive Data Percent cell count reference ranges are not reported, since discordance with absolute values may lead to misinterpretation of CBC data. Current Interpretive Data was last revised on 2017. Monocyte pct 8.8 % [facility] Comment: Interpretive Data Percent cell count reference ranges are not reported, since discordance with absolute values may lead to misinterpretation of CBC data. Current Interpretive Data was last revised on 2017. Eosinophil pct 2.6 % [facility] Comment: Interpretive Data Percent cell count reference ranges are not reported, since discordance with absolute values may lead to misinterpretation of CBC data. Current Interpretive Data was last revised on 2017. Basophil pct 0.3 % [facility] Comment: Interpretive Data Percent cell count reference ranges are not reported, since discordance with absolute values may lead to misinterpretation of CBC data. Current Interpretive Data was last revised on 2017. Blood 06/10/2022 7:52 AM CDT 06/10/2022 8:07 AM CDT us Catherine Adams MD LAB BLOOD ORDERABLES Final Result Performing Organization Address City/[facility] Co de Phone Number [facility] [place] [address] * Lactate, whole blood (06/10/2022 7:52 AM CDT) Lactate, bld 1.2 0.7 - 2.0 mmol/L [facility] Blood 06/10/2022 7:52 AM CDT 06/10/2022 8:02 AM CDT us Marcelina Lo NP LAB BLOOD ORDERABLES Final Re sult Performing Organization Address [facility] [place]/[facility] Co de Phone Number [facility] [place] [address] * (ABNORMAL) Blood gas, arterial (06/10/2022 7:52 AM CDT) pH, Art 7.46(H) 7.35 - 7.45 [facility] PCO2, Arterial 34(L) 35 - 45 mmHg [facility] PO2, Arterial 99 83 - 108 mmHg [facility] HCO3 Art (Calculated) 25 20 - 30 mmol/L [facility] BE, art 1 mmol/L [facility] Comment: Interpretive Data No Reference Range Established Current Interpretive Data was last revised on 2017 O2 Sat Art (Measured) 98(H) 90 - 95 % [facility] Blood 06/10/2022 7:52 AM CDT 06/10/2022 8:02 AM CDT Marcelina Lo OPTICAL INSTRUMENT INSPECTOR LAB BLOOD ORDERABLES Final Re sult Performing Organization Address City/[facility]/ZIP Co de Phone Number [facility] [place] [address] * Magnesium (06/10/2022 7:52 AM CDT) Pathologist [facility] Magnesium 2.4 1.4 - 2.5 mg/dL [facility] Blood 06/10/2022 7:52 AM CDT 06/10/2022 8:07 AM CDT Marcelina Lo OPTICAL INSTRUMENT INSPECTOR LAB BLOOD ORDERABLES Final Re sult Performing Organization Address [facility] [place] de Phone Number [facility] [place] [address] * (ABNORMAL) Comprehensive metabolic panel (06/10/2022 7:52 AM CDT) Pathologist [facility] Sodium 135 135 - 145 mmol/L [facility] Potassium, pl 4.3 3.3 - 4.9 mmol/L [facility] Chloride 100 97 - 110 mmol/L [facility] CO2 26 22 - 32 mmol/L [facility] Anion gap 9 2 - 15 mmol/L [facility] BUN 20 8 - 25 mg/dL [facility] Creatinine 2.44(H) 0.80 - 1.30 mg/dL [facility] Glucose 138 70 - 199 mg/dL [facility] Comment: Interpretive Data Fasting glucose >/= [...] 2017. Calcium 8.4(L) 8.5 - 10.3 mg/dL [facility] Bilirubin, total 0.8 0.1 - 1.2 mg/dL [facility] Protein, pl 6.2(L) 6.5 - 8.5 g/dL [facility] Albumin 3.0(L) 3.5 - 5.0 g/dL [facility] Alk phos 169(H) 40 - 130 Units/L [facility] ALT 45 7 - 55 Units/L [facility] AST 117(H) 10 - 50 Units/L [facility] Blood 06/10/2022 7:52 AM CDT 06/10/2022 8:07 AM CDT us Marcelina Lo OPTICAL INSTRUMENT INSPECTOR LAB BLOOD ORDERABLES Final Re sult [facility] [place] [address] * (ABNORMAL) CBC with auto differential (06/10/2022 7:52 AM CDT) WBC 10.2(H) 3.8 - 9.9 K/cumm [facility] Hgb 8.3(L) 13.0 - 17.5 g/dL [facility] Hct 25.1(L) 38.9 - 50.3 % [facility] Plt 201 150 - 400 K/cumm [facility] MPV 10.9 9.1 - 12.3 fL [facility] RBC 2.70(L) 4.30 - 5.80 M/cumm [facility] MCV 93.0 81.3 - 96.4 fL [facility] MCH 30.7 27.1 - 33.3 pg [facility] MCHC 33.1 32.3 - 35.7 g/dL [facility] RDW CV 13.3 11.1 - 14.9 % [facility] RDW SD 45.1 35.7 - 48.1 fL [facility] NRBC abs 0.02(H) 0.00 - 0.01 K/cumm [facility] Blood 06/10/2022 7:52 AM CDT 06/10/2022 8:07 AM CDT Marcelina Lo OPTICAL INSTRUMENT INSPECTOR LAB BLOOD ORDERABLES Final Re sult Performing Organization Address [facility] [place]/[facility] de Phone Number [facility] [place] [address] * Oxyhemoglobin, central venous (06/10/2022 5:36 AM CDT) Oxyhemoglobin, CV 70.2 % [facility] Comment: Interpretive Data No reference range established. Current interpretive data was last revised 2019. Blood 06/10/2022 5:36 AM CDT 06/10/2022 5:58 AM CDT Lavern Morrison MD LAB BLOOD ORDERABLES F inal Result Performing Organization Address [facility] [place]/[facility] de Phone Number [facility] [place] [address] * Lactate, whole blood (06/10/2022 5:36 AM CDT) Lactate, bld 1.4 0.7 - 2.0 mmol/L [facility] Blood 06/10/2022 5:36 AM CDT 06/10/2022 5:58 AM CDT Marcelina Lo OPTICAL INSTRUMENT INSPECTOR LAB BLOOD ORDERABLES Final Re sult Performing Organization Address [facility] [place]/[facility] de Phone Number [facility] [place] [address] * XR Chest 1 View (06/10/2022 5:32 AM CDT) Anatomical Region Laterality Modality Body, Chest N/A Computed Radiogr aphy 06/10/2022 11:3 8 AM CDT Impressions 06/10/2022 11:42 AM CDT Comparison is made with prior radiograph dated 06/09/2022 7:57 AM. ??Left internal jugular central venous catheter terminates in the proximal superior vena cava. Feeding tube courses below diaphragm with tip not seen. Inferior approach [place] catheter has tip projecting over the main [...] diaphragm with tip not seen. Inferior approach [place] catheter has tip projecting over the main [...] Blood gas, arterial (06/10/2022 3:45 AM CDT) [facility] pH, Art 7.45 7.35 - 7.45 [facility] PCO2, Arterial 36 35 - 45 mmHg [facility] PO2, Arterial 92 83 - 108 mmHg [facility] HCO3 Art (Calculated) 26 20 - 30 mmol/L [facility] BE, art 1 mmol/L [facility] Comment: Interpretive Data No Reference Range Established Current Interpretive Data was last revised on 2017 O2 Sat Art (Measured) 97(H) 90 - 95 % [facility] Blood 06/10/2022 3:45 AM CDT 06/10/2022 3:52 AM CDT us Marcelina Lo NP LAB BLOOD ORDERABLES Final Re sult Performing Organization Address [facility] [place]/[facility]/ZIP Co de Phone Number [facility] [place] [address] * POCT glucose (06/10/2022 3:42 AM CDT) Glucose, POC 150 70 - 199 mg/dL [facility] Blood 06/10/2022 3:42 AM CDT 06/10/2022 3:42 AM CDT us Catherine Adams MD LAB POCT ORDERABLES - DEVIC E Final Result Performing Organization Address City/[facility]/ZIP Co de Phone Number [facility] [place] [address] * Lactate, whole blood (06/10/2022 12:26 AM CDT) Lactate, bld 1.4 0.7 - 2.0 mmol/L [facility] Blood 06/10/2022 12:2 6 AM CDT 06/10/2022 12:33 AM CDT Catherine Adams MD LAB BLOOD ORDERABLES Final Result Performing Organization Address City/[facility] Co de Phone Number [facility] [place] [address] * (ABNORMAL) Blood gas, arterial (06/10/2022 12:26 [...] Art (Measured) 96(H) 90 - 95 % [facility] Blood 06/10/2022 12:2 6 AM CDT 06/10/2022 12:33 AM CDT us Marcelina Lo NP LAB BLOOD ORDERABLES Final Re sult [facility] [place] [address] * POCT glucose (06/10/2022 12:21 AM CDT) Glucose, POC 157 70 - 199 mg/dL [facility] Blood 06/10/2022 12:2 1 AM CDT 06/10/2022 12:21 AM CDT us Catherine Adams MD LAB POCT ORDERABLES - DEVIC E Final Result [facility] [place] [address] * (ABNORMAL) Blood gas, arterial (06/09/2022 10:28 PM CDT) pH, Art 7.43 7.35 - 7.45 [facility] PCO2, Arterial 38 35 - 45 mmHg [facility] PO2, Arterial 93 83 - 108 mmHg [facility] HCO3 Art (Calculated) 26 20 - 30 mmol/L [facility] BE, art 1 mmol/L [facility] Comment: Interpretive Data No Reference Range Established Current Interpretive Data was last revised on 2017 O2 Sat Art (Measured) 97(H) 90 - 95 % [facility] Blood 06/09/2022 10:2 8 PM CDT 06/09/2022 10:38 PM CDT Catherine Adams MD LAB BLOOD ORDERABLES Final Result Performing Organization Address [facility] [place]/[facility] de Phone Number [facility] [place] [address] * POCT glucose (06/09/2022 8:40 PM CDT) Glucose, POC 182 70 - 199 mg/dL [facility] Blood 06/09/2022 8:40 PM CDT 06/09/2022 8:40 PM CDT Catherine Adams MD LAB POCT ORDERABLES - DEVIC E Final Result Performing Organization Address [facility] [place]/[facility] de Phone Number [facility] [place] [address] * (ABNORMAL) eGFR (06/09/2022 8:33 PM CDT) eGFR 26(L) 90 - 130 mL/min/1. 73 m2 [facility] Comment: Interpretive Data Reference Interval Normal [...] BLOOD ORDERABLES Final Result Performing Organization Address City/State/[facility] Co de Phone Number [facility] [place] [address] * (ABNORMAL) Differential, auto (06/09/2022 8:33 PM CDT) Neutrophil abs 5.8 1.7 - 6.5 K/cumm [facility] Imm gran abs 0.7(H) 0.0 - 0.1 K/cumm [facility] Lymphocyte abs 1.2 0.8 - 3.3 K/cumm [facility] Monocyte abs 1.0(H) 0.2 - 0.8 K/cumm [facility] Eosinophil abs 0.3 0.0 - 0.5 K/cumm [facility] Basophil abs 0.0 0.0 - 0.1 K/cumm [facility] Neutrophil pct 64.3 % [facility] Comment: Interpretive Data Percent cell count reference ranges are not reported, since discordance with absolute values may lead to misinterpretation of CBC data. Current Interpretive Data was last revised on 2017. Imm gran pct 7.7 % [facility] Comment: Interpretive Data Percent cell count reference ranges are not reported, since discordance with absolute values may lead to misinterpretation of CBC data. Current Interpretive Data was last revised on 2017. Lymphocyte pct 13.4 % [facility] Comment: Interpretive Data Percent cell count reference ranges are not reported, since discordance with absolute values may lead to misinterpretation of CBC data. Current Interpretive Data was last revised on 2017. Monocyte pct 11.5 % [facility] Comment: Interpretive Data Percent cell count reference ranges are not reported, since discordance with absolute values may lead to misinterpretation of CBC data. Current Interpretive Data was last revised on 2017. Eosinophil pct 2.8 % [facility] Comment: Interpretive Data Percent cell count reference ranges are not reported, since discordance with absolute values may lead to misinterpretation of CBC data. Current Interpretive Data was last revised on 2017. Basophil pct 0.3 % [facility] Comment: Interpretive Data Percent cell count reference ranges are not reported, since discordance with absolute values may lead to misinterpretation of CBC data. Current Interpretive Data was last revised on 2017. Blood 06/09/2022 8:33 PM CDT 06/09/2022 9:07 PM CDT Catherine Adams MD LAB BLOOD ORDERABLES Final Result [facility] [place] [address] * (ABNORMAL) Blood gas, arterial (06/09/2022 8:33 PM CDT) pH, Art 7.41 7.35 - 7.45 [facility] PCO2, Arterial 39 35 - 45 mmHg [facility] PO2, Arterial 92 83 - 108 mmHg [facility] HCO3 Art (Calculated) 25 20 - 30 mmol/L [facility] BE, art 0 mmol/L [facility] Comment: Interpretive Data No Reference Range Established Current Interpretive Data was last revised on 2017 O2 Sat Art (Measured) 96(H) 90 - 95 % [facility] Blood 06/09/2022 8:33 PM CDT 06/09/2022 8:58 PM CDT Marcelina Lo OPTICAL INSTRUMENT INSPECTOR LAB BLOOD ORDERABLES Final Re sult Performing Organization Address [facility] [place]/[facility] Co de Phone Number [facility] [place] [address] * (ABNORMAL) aPTT (06/09/2022 8:33 PM CDT) aPTT 92(H) 27 - 37 sec [facility] Comment: Interpretive Data Therapeutic heparin range: 60.0 - 94.0 seconds. Based on correlation with therapeutic heparin activity range of 0.3-0.7 Units/mL. Current interpretive data was last revised on 2020. Blood 06/09/2022 8:33 PM CDT 06/09/2022 9:01 PM CDT Narrative [facility] - 06/09/2022 9:28 PM CDT Draw STAT [...] l Result Performing Organization Address [facility] [place]/[facility] Co de Phone Number [facility] [place] [address] * Phosphorus (06/09/2022 8:33 PM CDT) Phosphorus, pl 3.2 2.3 - 4.5 mg/dL [facility] Blood 06/09/2022 8:33 PM CDT 06/09/2022 9:07 PM CDT Marcelina Lo OPTICAL INSTRUMENT INSPECTOR LAB BLOOD ORDERABLES Final Re sult Performing Organization Address [facility] [place]/[facility] Co de Phone Number [facility] [place] [address] * Beta-hydroxybutyrate (06/09/2022 8:33 PM CDT) Beta-Hydroxybut yrate 0.3 0.0 - 0.5 mmol/L [facility] Blood 06/09/2022 8:33 PM CDT 06/09/2022 9:07 PM CDT us Marcelina Lo OPTICAL INSTRUMENT INSPECTOR LAB BLOOD ORDERABLES [place] [address] * Haptoglobin (06/09/2022 8:33 PM CDT) Haptoglobin 153.0 30.0 - 200.0 mg/dL [facility] Blood 06/09/2022 8:33 PM CDT 06/09/2022 9:07 PM CDT Catherine Adams MD LAB BLOOD ORDERABLES Final Result [facility] [place] [address] * Lipase (06/09/2022 8:33 PM CDT) Lipase 21 10 - 99 Units/L [facility] Blood 06/09/2022 8:33 PM CDT 06/09/2022 9:07 PM CDT us Marcelina Lo OPTICAL INSTRUMENT INSPECTOR LAB BLOOD ORDERABLES Final Re sult [facility] [place] [address] * (ABNORMAL) Lactate dehydrogenase (LD) (06/09/2022 8:33 PM CDT) Pathologist [facility] Lactate dehydrogenase (LDH) 528(H) 100 - 250 Units/L [facility] Blood 06/09/2022 8:33 PM CDT 06/09/2022 9:07 PM CDT Catherine Adams MD LAB BLOOD ORDERABLES Final Result [facility] [place] [address] * Magnesium (06/09/2022 8:33 PM CDT) [facility] Magnesium 2.4 1.4 - 2.5 mg/dL [facility] Blood 06/09/2022 8:33 PM CDT 06/09/2022 9:07 PM CDT Marcelina Lo NP LAB BLOOD ORDERABLES Final Re sult Performing Organization Address City/[facility]/ZIP Co de Phone Number [facility] [place] [address] * (ABNORMAL) Comprehensive metabolic panel (06/09/2022 8:33 PM CDT) [facility] Sodium 134(L) 135 - 145 mmol/L [facility] Potassium, pl 4.4 3.3 - 4.9 mmol/L [facility] Chloride 99 97 - 110 mmol/L [facility] CO2 25 22 - 32 mmol/L [facility] Anion gap 10 2 - 15 mmol/L [facility] BUN 24 8 - 25 mg/dL [facility] Creatinine 2.82(H) 0.80 - 1.30 mg/dL [facility] Glucose 173 70 - 199 mg/dL [facility] Comment: Interpretive Data Fasting glucose >/= [...] 2017. Calcium 8.3(L) 8.5 - 10.3 mg/dL [facility] Bilirubin, total 0.8 0.1 - 1.2 mg/dL [facility] Protein, pl 6.1(L) 6.5 - 8.5 g/dL [facility] Albumin 2.8(L) 3.5 - 5.0 g/dL [facility] Alk phos 168(H) 40 - 130 Units/L [facility] ALT 45 7 - 55 Units/L [facility] AST 129(H) 10 - 50 Units/L [facility] Blood 06/09/2022 8:33 PM CDT 06/09/2022 9:07 PM CDT us Marcelina Lo OPTICAL INSTRUMENT INSPECTOR LAB BLOOD ORDERABLES Final Re sult [facility] [place] [address] * (ABNORMAL) CBC with auto differential (06/09/2022 8:33 PM CDT) WBC 9.1 3.8 - 9.9 K/cumm [facility] Hgb 8.2(L) 13.0 - 17.5 g/dL [facility] Hct 24.8(L) 38.9 - 50.3 % [facility] Plt 208 150 - 400 K/cumm [facility] MPV 11.0 9.1 - 12.3 fL [facility] RBC 2.66(L) 4.30 - 5.80 M/cumm [facility] MCV 93.2 81.3 - 96.4 fL [facility] MCH 30.8 27.1 - 33.3 pg [facility] MCHC 33.1 32.3 - 35.7 g/dL [facility] RDW CV 13.2 11.1 - 14.9 % [facility] RDW SD 45.5 35.7 - 48.1 fL [facility] NRBC abs 0.00 0.00 - 0.01 K/cumm [facility] Blood 06/09/2022 8:33 PM CDT 06/09/2022 9:07 PM CDT Marcelina Lo OPTICAL INSTRUMENT INSPECTOR LAB BLOOD ORDERABLES Final Re sult Performing Organization Address [facility] [place]/[facility] Co de Phone Number [facility] [place] [address] * Oxyhemoglobin, pulmonary artery (06/09/2022 3:52 PM CDT) Oxyhemoglobin, PA 66.5 % [facility] Comment: Interpretive Data No reference range established. Current interpretive data was last revised 2019. Blood 06/09/2022 3:52 PM CDT 06/09/2022 4:01 PM CDT Marcelina Lo OPTICAL INSTRUMENT INSPECTOR LAB BLOOD ORDERABLES Final Re sult Performing Organization Address [facility] [place]/[facility] Co de Phone Number [facility] [place] [address] * Lactate, whole blood (06/09/2022 3:52 PM CDT) Lactate, bld 1.4 0.7 - 2.0 mmol/L [facility] Blood 06/09/2022 3:52 PM CDT 06/09/2022 4:01 PM CDT Marcelina Lo OPTICAL INSTRUMENT INSPECTOR LAB BLOOD ORDERABLES Final Re sult Performing Organization Address [facility] [place]/[facility] Co de Phone Number [facility] [place] [address] * (ABNORMAL) Hemoglobin total, pulmonary artery (06/09/2022 3:52 PM CDT) Hemoglobin total, PA 8.9(L) 13.0 - 17.5 g/dL [facility] Blood 06/09/2022 3:52 PM CDT 06/09/2022 4:01 PM CDT Marcelina Lo OPTICAL INSTRUMENT INSPECTOR LAB BLOOD ORDERABLES Final Re sult Performing Organization Address [facility] [place]/[facility] de Phone Number [facility] [place] [address] * (ABNORMAL) Blood gas, arterial (06/09/2022 3:52 PM CDT) Pathologist [facility] pH, Art 7.38 7.35 - 7.45 [facility] PCO2, Arterial 45 35 - 45 mmHg [facility] PO2, Arterial 80(L) 83 - 108 mmHg [facility] HCO3 Art (Calculated) 27 20 - 30 mmol/L [facility] BE, art 1 mmol/L [facility] Comment: Interpretive Data No Reference Range Established Current Interpretive Data was last revised on 2017 O2 Sat Art (Measured) 94 90 - 95 % [facility] Blood 06/09/2022 3:52 PM CDT 06/09/2022 4:01 PM CDT Result [facility] Catherine Adams MD LAB BLOOD ORDERABLES Final Result Performing Organization Address [facility] [place]/[facility] Co de Phone Number [facility] [place] [address] * POCT glucose (06/09/2022 3:50 PM CDT) Glucose, POC 136 70 - 199 mg/dL [facility] Blood 06/09/2022 3:50 PM CDT 06/09/2022 3:50 PM CDT Result [facility] Catherine Adams MD LAB POCT ORDERABLES - DEVIC E Final Result Performing Organization Address [facility] [place]/[facility] Co de Phone Number [facility] [place] [address] * Lactate, whole blood (06/09/2022 11:59 AM CDT) Lactate, bld 1.3 0.7 - 2.0 mmol/L [facility] Blood 06/09/2022 11:5 9 AM CDT 06/09/2022 12:10 PM CDT Result [facility] Marcelina Lo OPTICAL INSTRUMENT INSPECTOR LAB BLOOD ORDERABLES Final Re sult Performing Organization Address [facility] [place]/[facility] Co de Phone Number [facility] [place] [address] * (ABNORMAL) Hemoglobin total, pulmonary artery (06/09/2022 11:59 AM CDT) Hemoglobin total, PA 10.2(L) 13.0 - 17.5 g/dL [facility] Blood 06/09/2022 11:5 9 AM CDT 06/09/2022 12:10 PM CDT Result [facility] Marcelina Lo OPTICAL INSTRUMENT INSPECTOR LAB BLOOD ORDERABLES Final Re sult Performing Organization Address [facility] [place]/[facility] Co de Phone Number [facility] [place] [address] * Oxyhemoglobin, pulmonary artery (06/09/2022 11:59 AM CDT) Oxyhemoglobin, PA 65.2 % [facility] Comment: Interpretive Data No reference range established. Current interpretive data was last revised 2019. Blood 06/09/2022 11:5 9 AM CDT 06/09/2022 12:10 PM CDT Marcelina Lo NP LAB BLOOD ORDERABLES Final Re sult Performing Organization Address [facility] [place]/[facility] Co de Phone Number [facility] [place] [address] * (ABNORMAL) aPTT (06/09/2022 11:59 AM CDT) aPTT 79(H) 27 - 37 sec [facility] Comment: Interpretive Data Therapeutic heparin range: 60.0 - 94.0 seconds. Based on correlation with therapeutic heparin activity range of 0.3-0.7 Units/mL. Current interpretive data was last revised on 2020. Blood 06/09/2022 11:5 9 AM CDT 06/09/2022 12:14 PM CDT Narrative [facility] - 06/09/2022 12:40 PM CDT Draw STAT [...] l Result Performing Organization Address [facility] [place]/[facility] Co de Phone Number [facility] [place] [address] * POCT glucose (06/09/2022 11:58 AM CDT) Glucose, POC 171 70 - 199 mg/dL [facility] Blood 06/09/2022 11:5 8 AM CDT 06/09/2022 11:58 AM CDT Catherine Adams MD LAB POCT ORDERABLES - DEVIC E Final Result Performing Organization Address [facility] [place]/[facility] Co de Phone Number [facility] [place] [address] * XR Chest 1 View (06/09/2022 8:57 [...] diaphragm with tip not seen. Inferior approach [place] catheter has been retracted with the tip projecting over the main pulmonary artery. An Impella device is in place, unchanged. There is mild cardiomegaly, unchanged. There is moderate asymmetric left lung and right upper lobe pulmonary edema. Likely small left pleural effusion although the left costophrenic angle is partially off the [id number]. No right pleural effusion or pneumothorax. Second exam ??06/09/2022 7:57 AM The [place]-L[place] catheter has been slightly advanced with tip [...] diaphragm with tip not seen. Inferior approach [place] catheter has been retracted with the tip projecting over the main pulmonary artery. An Impella device is in place, unchanged. There is mild cardiomegaly, unchanged. There is moderate asymmetric left lung and right upper lobe pulmonary edema. Likely small left pleural effusion although the left costophrenic angle is partially off the [id number]. No right pleural effusion or pneumothorax. Second exam 06/09/2022 7:57 AM The [place] catheter has been slightly advanced with tip [...] 90 - 130 mL/min/1. 73 m2 [facility] Comment: Interpretive Data Reference Interval [...] Adams MD LAB BLOOD ORDERABLES Final Result [facility] [place] [address] * (ABNORMAL) Differential, auto (06/09/2022 7:57 AM CDT) Neutrophil abs 5.8 1.7 - 6.5 K/cumm [facility] Imm gran abs 0.5(H) 0.0 - 0.1 K/cumm [facility] Lymphocyte abs 1.2 0.8 - 3.3 K/cumm [facility] Monocyte abs 1.0(H) 0.2 - 0.8 K/cumm [facility] Eosinophil abs 0.2 0.0 - 0.5 K/cumm [facility] Basophil abs 0.0 0.0 - 0.1 K/cumm [facility] Neutrophil pct 67.0 % [facility] Comment: Interpretive Data Percent cell count reference ranges are not reported, since discordance with absolute values may lead to misinterpretation of CBC data. Current Interpretive Data was last revised on 2017. Imm gran pct 5.6 % [facility] Comment: Interpretive Data Percent cell count reference ranges are not reported, since discordance with absolute values may lead to misinterpretation of CBC data. Current Interpretive Data was last revised on 2017. Lymphocyte pct 13.6 % [facility] Comment: Interpretive Data Percent cell count reference ranges are not reported, since discordance with absolute values may lead to misinterpretation of CBC data. Current Interpretive Data was last revised on 2017. Monocyte pct 11.4 % [facility] Comment: Interpretive Data Percent cell count reference ranges are not reported, since discordance with absolute values may lead to misinterpretation of CBC data. Current Interpretive Data was last revised on 2017. Eosinophil pct 2.2 % [facility] Comment: Interpretive Data Percent cell count reference ranges are not reported, since discordance with absolute values may lead to misinterpretation of CBC data. Current Interpretive Data was last revised on 2017. Basophil pct 0.2 % [facility] Comment: Interpretive Data Percent cell count reference ranges are not reported, since discordance with absolute values may lead to misinterpretation of CBC data. Current Interpretive Data was last revised on 2017. Blood 06/09/2022 7:57 AM CDT 06/09/2022 8:19 AM CDT Catherine Adams MD LAB BLOOD ORDERABLES Final Result Performing Organization Address City/[facility]/ZIP Co de Phone Number [facility] [place] [address] * Magnesium (06/09/2022 7:57 AM CDT) [facility] Magnesium 2.3 1.4 - 2.5 mg/dL [facility] Blood 06/09/2022 7:57 AM CDT 06/09/2022 8:19 AM CDT Marcelina Lo NP LAB BLOOD ORDERABLES Final Re sult Performing Organization Address [facility] [place]/[facility]/ZIP Co de Phone Number [facility] [place] [address] * (ABNORMAL) Comprehensive metabolic panel (06/09/2022 7:57 AM CDT) Sodium 134(L) 135 - 145 mmol/L [facility] Potassium, pl 4.5 3.3 - 4.9 mmol/L [facility] Chloride 99 97 - 110 mmol/L [facility] CO2 28 22 - 32 mmol/L [facility] Anion gap 7 2 - 15 mmol/L [facility] BUN 32(H) 8 - 25 mg/dL [facility] Creatinine 3.50(H) 0.80 - 1.30 mg/dL [facility] Glucose 171 70 - 199 mg/dL [facility] Comment: Interpretive Data Fasting glucose >/= [...] 2017. Calcium 8.4(L) 8.5 - 10.3 mg/dL [facility] Bilirubin, total 0.6 0.1 - 1.2 mg/dL [facility] Protein, pl 5.8(L) 6.5 - 8.5 g/dL [facility] Albumin 2.8(L) 3.5 - 5.0 g/dL [facility] Alk phos 165(H) 40 - 130 Units/L [facility] ALT 43 7 - 55 Units/L [facility] AST 133(H) 10 - 50 Units/L [facility] Blood 06/09/2022 7:57 AM CDT 06/09/2022 8:19 AM CDT Marcelina Lo OPTICAL INSTRUMENT INSPECTOR LAB BLOOD ORDERABLES Final Re sult [facility] [place] [address] * Potassium, whole blood (06/09/2022 7:57 AM CDT) Potassium, bld 4.2 3.3 - 4.9 mmol/L [facility] Blood 06/09/2022 7:57 AM CDT 06/09/2022 8:14 AM CDT Marcelina Lo OPTICAL INSTRUMENT INSPECTOR LAB BLOOD ORDERABLES Final Re sult [facility] [place] [address] * (ABNORMAL) Blood gas, arterial (06/09/2022 7:57 AM CDT) [facility] pH, Art 7.43 7.35 - 7.45 [facility] PCO2, Arterial 39 35 - 45 mmHg [facility] PO2, Arterial 107 83 - 108 mmHg [facility] HCO3 Art (Calculated) 27 20 - 30 mmol/L [facility] BE, art 2 mmol/L [facility] Comment: Interpretive Data No Reference Range Established Current Interpretive Data was last revised on 2017 O2 Sat Art (Measured) 97(H) 90 - 95 % [facility] Blood 06/09/2022 7:57 AM CDT 06/09/2022 8:14 AM CDT Marcelina Lo OPTICAL INSTRUMENT INSPECTOR LAB BLOOD ORDERABLES Final Re sult [facility] [place] [address] * Lactate, whole blood (06/09/2022 7:57 AM CDT) [facility] Lactate, bld 1.1 0.7 - 2.0 mmol/L [facility] Blood 06/09/2022 7:57 AM CDT 06/09/2022 8:14 AM CDT Marcelina Lo OPTICAL INSTRUMENT INSPECTOR LAB BLOOD ORDERABLES Final Re sult [facility] [place] [address] * Type and screen (06/09/2022 7:57 AM CDT) [facility] ABO Rh A Positive [facility] Maribel, indirect Negative [facility] Blood 06/09/2022 7:57 AM CDT 06/09/2022 8:20 AM CDT Narrative [facility] - 06/09/2022 9:11 AM CDT Has the patient had Daratumumab or Isatuximab in the past 6 months?->Unknown Catherine Adams MD LAB BLOOD BANK TEST ORDERAB LES Final Result Performing Organization Address [facility] [place] [address] * (ABNORMAL) Hemoglobin total, pulmonary artery (06/09/2022 7:57 AM CDT) Hemoglobin total, PA 8.7(L) 13.0 - 17.5 g/dL [facility] Blood 06/09/2022 7:57 AM CDT 06/09/2022 8:43 AM CDT Marcelina Lo OPTICAL INSTRUMENT INSPECTOR LAB BLOOD ORDERABLES Final Re sult Performing Organization Address [facility] [place]/[facility] [place] [address] * Oxyhemoglobin, pulmonary artery (06/09/2022 7:57 AM CDT) Oxyhemoglobin, PA 55.8 % [facility] Comment: Interpretive Data No reference range established. Current interpretive data was last revised 2019. Blood 06/09/2022 7:57 AM CDT 06/09/2022 8:43 AM CDT Marcelina Lo OPTICAL INSTRUMENT INSPECTOR LAB BLOOD ORDERABLES Final Re sult Performing Organization Address [facility] [place]/[facility] [place] [address] * (ABNORMAL) CBC with auto differential (06/09/2022 7:57 AM CDT) WBC 8.6 3.8 - 9.9 K/cumm [facility] Hgb 8.1(L) 13.0 - 17.5 g/dL [facility] Hct 23.5(L) 38.9 - 50.3 % [facility] Plt 179 150 - 400 K/cumm [facility] MPV 11.1 9.1 - 12.3 fL [facility] RBC 2.61(L) 4.30 - 5.80 M/cumm [facility] MCV 90.0 81.3 - 96.4 fL [facility] MCH 31.0 27.1 - 33.3 pg [facility] MCHC 34.5 32.3 - 35.7 g/dL [facility] RDW CV 13.4 11.1 - 14.9 % [facility] RDW SD 44.2 35.7 - 48.1 fL [facility] NRBC abs 0.00 0.00 - 0.01 K/cumm [facility] Blood 06/09/2022 7:57 AM CDT 06/09/2022 8:19 AM CDT us Marcelina Lo NP LAB BLOOD ORDERABLES Final Re sult [facility] [place] [place] [address] * POCT glucose (06/09/2022 7:55 AM CDT) [facility] Glucose, POC 155 70 - 199 mg/dL [facility] Blood 06/09/2022 7:55 AM CDT 06/09/2022 7:55 AM CDT us Catherine Adams MD LAB POCT ORDERABLES - DEVIC E Final Result Performing Organization Address City/[facility]/ZIP Co de Phone Number [facility] [place] [address] * (ABNORMAL) aPTT (06/09/2022 5:24 AM CDT) aPTT 66(H) 27 - 37 sec [facility] Comment: Interpretive Data Therapeutic heparin range: 60.0 - 94.0 seconds. Based on correlation with therapeutic heparin activity range of 0.3-0.7 Units/mL. Current interpretive data was last revised on 2020. Blood 06/09/2022 5:24 AM CDT 06/09/2022 5:53 AM CDT Narrative [facility] - 06/09/2022 6:02 AM CDT Draw STAT [...] l Result Performing Organization Address [facility] [place]/[facility] de Phone Number [facility] [place] [address] * (ABNORMAL) Blood gas, arterial (06/09/2022 5:24 AM CDT) Pathologist [facility] pH, Art 7.44 7.35 - 7.45 [facility] PCO2, Arterial 38 35 - 45 mmHg [facility] PO2, Arterial 71(L) 83 - 108 mmHg [facility] HCO3 Art (Calculated) 26 20 - 30 mmol/L [facility] BE, art 2 mmol/L [facility] Comment: Interpretive Data No Reference Range Established Current Interpretive Data was last revised on 2017 O2 Sat Art (Measured) 94 90 - 95 % [facility] Blood 06/09/2022 5:24 AM CDT 06/09/2022 5:37 AM CDT us Marcelina Lo NP LAB BLOOD ORDERABLES Final Re sult Performing Organization Address [facility] [place]/[facility]/ZIP Co de Phone Number [facility] [place] [address] * XR Chest 1 View (06/09/2022 4:30 [...] diaphragm with tip not seen. Inferior approach [place] catheter has been retracted with the tip projecting over the main pulmonary artery. An Impella device is in place, unchanged. There is mild cardiomegaly, unchanged. There is moderate asymmetric left lung and right upper lobe pulmonary edema. Likely small left pleural effusion although the left costophrenic angle is partially off the [id number]. No right pleural effusion or pneumothorax. Second exam ??06/09/2022 7:57 AM The [place] catheter has been slightly advanced with tip [...] diaphragm with tip not seen. Inferior approach [place] catheter has been retracted with the tip projecting over the main pulmonary artery. An Impella device is in place, unchanged. There is mild cardiomegaly, unchanged. There is moderate asymmetric left lung and right upper lobe pulmonary edema. Likely small left pleural effusion although the left costophrenic angle is partially off the [id number]. No right pleural effusion or pneumothorax. Second exam 06/09/2022 7:57 AM The [place] catheter has been slightly advanced with tip [...] WBC, ur 0-5 0 - 5 /HPF [facility] RBC, ur 6-10(A) 0 - 2 /HPF [facility] Hyaline casts, ur 1-5 0 - 10 /LPF [facility] Granular casts, ur 1-5(A) 0 - 0 /LPF [facility] Culture Reflex Comment Reflex conditions for urine culture (WBC >10) not met. [facility] Urine 06/09/2022 4:08 AM CDT 06/09/2022 4:16 AM CDT Catherine Adams MD LAB URINE ORDERABLES Final Result [facility] Department of Laboratories [place], [place] [id number] * (ABNORMAL) Urinalysis reflex to microscopic and culture Urine (06/09/2022 4:08 AM CDT) Color, ur Yellow Yellow [facility] Clarity, ur Clear Clear [facility] Specific gravity, ur 1.018 1.003 - 1.030 [facility] pH, urine 5.5 [facility] Protein, ur ql 1+(A) Negative [facility] Glucose, ur ql 4+(A) Negative [facility] Ketones, ur Negative Negative [facility] Bilirubin, ur Negative Negative [facility] Blood, ur 2+(A) Negative [facility] Urobilinogen, ur <2.0 <2.0 mg/dL [facility] Nitrite, ur Negative Negative [facility] Leukocyte esterase, ur Negative Negative [facility] UA reflex comment Reflex to microscopic UA will be performed. [facility] Urine 06/09/2022 4:08 AM CDT 06/09/2022 4:16 [...] for uric acid stone formation. Source: [place] Georgina Goodman. Last revised 08-31-2017 Catherine Adams MD LAB MICROBIOLOGY - GENERAL ORDERABLES Final Result Performing Organization Address City/[facility]/ZIP Co de Phone Number [facility] [place] [place] [address] * POCT glucose (06/09/2022 4:06 AM CDT) Glucose, POC 147 70 - 199 mg/dL [facility] Blood 06/09/2022 4:06 AM CDT 06/09/2022 4:06 AM CDT Catherine Adams MD LAB POCT ORDERABLES - DEVIC E Final Result Performing Organization Address [facility] [place]/[facility] Co de Phone Number [facility] [place] [address] * (ABNORMAL) Hemoglobin and hematocrit (06/08/2022 11:27 PM CDT) Pathologist [facility] Hgb 7.5(L) 13.0 - 17.5 g/dL [facility] Hct 22.0(L) 38.9 - 50.3 % [facility] Blood 06/08/2022 11:2 7 PM CDT 06/08/2022 11:40 PM CDT Meme Castro MD LAB BLOOD ORDERABLES Final Result Performing Organization Address [facility] [place]/[facility] Co de Phone Number [facility] [place] [address] * (ABNORMAL) Hemoglobin total, pulmonary artery (06/08/2022 11:27 PM CDT) [facility] Hemoglobin total, PA 8.1(L) 13.0 - 17.5 g/dL [facility] Blood 06/08/2022 11:2 7 PM CDT 06/08/2022 11:36 PM CDT Marcelina Lo OPTICAL INSTRUMENT INSPECTOR LAB BLOOD ORDERABLES Final Re sult Performing Organization Address [facility] de Phone [place] [address] * Oxyhemoglobin, pulmonary artery (06/08/2022 11:27 PM CDT) Pathologist [facility] Oxyhemoglobin, PA 57.4 % [facility] Comment: Interpretive Data No reference range established. Current interpretive data was last revised 2019. Blood 06/08/2022 11:2 7 PM CDT 06/08/2022 11:36 PM CDT Marcelina Lo OPTICAL INSTRUMENT INSPECTOR LAB BLOOD ORDERABLES Final Re sult Performing Organization Address [facility] [place]/[facility] Co de Phone Number [facility] [place] [address] * (ABNORMAL) aPTT (06/08/2022 11:27 PM CDT) [facility] aPTT 44(H) 27 - 37 sec [facility] Comment: Interpretive Data Therapeutic heparin range: 60.0 - 94.0 seconds. Based on correlation with therapeutic heparin activity range of 0.3-0.7 Units/mL. Current interpretive data was last revised on 2020. Blood 06/08/2022 11:2 7 PM CDT 06/09/2022 12:13 AM CDT Narrative [facility] - 06/09/2022 12:22 AM CDT Draw STAT [...] LAB BLOOD ORDERABLES Ann Marie l Result [facility] [place] [place] [address] * POCT glucose (06/08/2022 11:25 PM CDT) [facility] Glucose, POC 156 70 - 199 mg/dL [facility] Blood 06/08/2022 11:2 5 PM CDT 06/08/2022 11:25 PM CDT Catherine Adams MD LAB POCT ORDERABLES - DEVIC E Final Result [facility] [place] [place] [address] * Phosphorus (06/08/2022 8:08 PM CDT) [facility] Phosphorus, pl 3.7 2.3 - 4.5 mg/dL [facility] Blood 06/08/2022 8:08 PM CDT 06/08/2022 8:31 PM CDT Catherine Adams MD LAB BLOOD ORDERABLES Final Result Performing Organization Address City/[facility] Co de Phone Number [facility] [place] [address] * Magnesium (06/08/2022 8:08 PM CDT) [facility] Magnesium 2.4 1.4 - 2.5 mg/dL [facility] Blood 06/08/2022 8:08 PM CDT 06/08/2022 8:31 PM CDT Result [facility] Catherine Adams MD LAB BLOOD ORDERABLES Final Result Performing Organization Address [facility] [place]/[facility] de Phone Number [facility] [place] [address] * (ABNORMAL) eGFR (06/08/2022 8:08 PM CDT) [facility] eGFR 14(L) 90 - 130 mL/min/1. 73 m2 [facility] Comment: Interpretive Data Reference Interval Normal [...] l Result Performing Organization Address [facility] [place]/[facility] Co de Phone Number [facility] [place] [address] * (ABNORMAL) Haptoglobin (06/08/2022 8:08 PM CDT) Haptoglobin 219.0(H) 30.0 - 200.0 mg/dL [facility] Blood 06/08/2022 8:08 PM CDT 06/08/2022 8:31 PM CDT Catherine Adams MD LAB BLOOD ORDERABLES Final Result Performing Organization Address [facility] [place]/[facility] Co de Phone Number [facility] [place] [address] * Lipase (06/08/2022 8:08 PM CDT) Lipase 11 10 - 99 Units/L [facility] Blood 06/08/2022 8:08 PM CDT 06/08/2022 8:31 PM CDT Catherine Adams MD LAB BLOOD ORDERABLES Final Result Performing Organization Address City/[facility] Co de Phone Number [facility] [place] [address] * (ABNORMAL) Differential, auto (06/08/2022 8:08 PM CDT) Neutrophil abs 7.0(H) 1.7 - 6.5 K/cumm [facility] Imm gran abs 0.4(H) 0.0 - 0.1 K/cumm [facility] Lymphocyte abs 0.9 0.8 - 3.3 K/cumm [facility] Monocyte abs 0.9(H) 0.2 - 0.8 K/cumm [facility] Eosinophil abs 0.1 0.0 - 0.5 K/cumm [facility] Basophil abs 0.0 0.0 - 0.1 K/cumm [facility] Neutrophil pct 75.3 % [facility] Comment: Interpretive Data Percent cell count reference ranges are not reported, since discordance with absolute values may lead to misinterpretation of CBC data. Current Interpretive Data was last revised on 2017. Imm gran pct 3.8 % [facility] Comment: Interpretive Data Percent cell count reference ranges are not reported, since discordance with absolute values may lead to misinterpretation of CBC data. Current Interpretive Data was last revised on 2017. Lymphocyte pct 10.0 % [facility] Comment: Interpretive Data Percent cell count reference ranges are not reported, since discordance with absolute values may lead to misinterpretation of CBC data. Current Interpretive Data was last revised on 2017. Monocyte pct 9.8 % [facility] Comment: Interpretive Data Percent cell count reference ranges are not reported, since discordance with absolute values may lead to misinterpretation of CBC data. Current Interpretive Data was last revised on 2017. Eosinophil pct 1.0 % [facility] Comment: Interpretive Data Percent cell count reference ranges are not reported, since discordance with absolute values may lead to misinterpretation of CBC data. Current Interpretive Data was last revised on 2017. Basophil pct 0.1 % [facility] Comment: Interpretive Data Percent cell count reference ranges are not reported, since discordance with absolute values may lead to misinterpretation of CBC data. Current Interpretive Data was last revised on 2017. Blood 06/08/2022 8:08 PM CDT 06/08/2022 8:30 PM CDT us Catherine Adams MD LAB BLOOD ORDERABLES Final Result [facility] [place] [address] * (ABNORMAL) Blood gas, arterial (06/08/2022 8:08 PM CDT) pH, Art 7.44 7.35 - 7.45 [facility] PCO2, Arterial 36 35 - 45 mmHg [facility] PO2, Arterial 140(H) 83 - 108 mmHg [facility] HCO3 Art (Calculated) 25 20 - 30 mmol/L [facility] BE, art 0 mmol/L [facility] Comment: Interpretive Data No Reference Range Established Current Interpretive Data was last revised on 2017 O2 Sat Art (Measured) 99(H) 90 - 95 % [facility] Blood 06/08/2022 8:08 PM CDT 06/08/2022 8:15 PM CDT us Marcelina Lo OPTICAL INSTRUMENT INSPECTOR LAB BLOOD ORDERABLES Final Re sult Performing Organization Address City/[facility]/ZIP Co de Phone Number [facility] [place] [address] * (ABNORMAL) Hemoglobin total, pulmonary artery (06/08/2022 8:08 PM CDT) Hemoglobin total, PA 8.7(L) 13.0 - 17.5 g/dL [facility] Blood 06/08/2022 8:08 PM CDT 06/08/2022 8:15 PM CDT Marcelina Lo OPTICAL INSTRUMENT INSPECTOR LAB BLOOD ORDERABLES Final Re sult [facility] [place] [address] * Oxyhemoglobin, pulmonary artery (06/08/2022 8:08 PM CDT) [facility] Oxyhemoglobin, PA 69.9 % [facility] Comment: Interpretive Data No reference range established. Current interpretive data was last revised 2019. Blood 06/08/2022 8:08 PM CDT 06/08/2022 8:15 PM CDT Marcelina Lo OPTICAL INSTRUMENT INSPECTOR LAB BLOOD ORDERABLES Final Re sult [facility] [place] [address] * Respiratory pathogen panel Nasopharyngeal (06/08/2022 8:08 PM CDT) [facility] Influenza A RNA Not Detected Not Detected [facility] Influenza B RNA Not Detected Not Detected [facility] RSV RNA Not Detected Not Detected [facility] COVID-19 RNA Not Detected Not Detected [facility] Coronavirus 229E RNA Not Detected Not Detected [facility] Coronavirus HKU1 RNA Not Detected Not Detected [facility] Coronavirus NL63 RNA Not Detected Not Detected [facility] Coronavirus OC43 RNA Not Detected Not Detected [facility] Adenovirus DNA Not Detected Not Detected [facility] Metapneumovirus RNA Not Detected Not Detected [facility] Rhinovirus/Enterov irus RNA Not Detected Not Detected [facility] Parainfluenza 1 RNA Not Detected Not Detected [facility] Parainfluenza 2 RNA Not Detected Not Detected [facility] Parainfluenza 3 RNA Not Detected Not Detected [facility] Parainfluenza 4 RNA Not Detected Not Detected [facility] B. pertussis DNA Not Detected Not Detected [facility] B. parapertussis DNA Not Detected Not Detected [facility] C. pneumoniae DNA Not Detected Not Detected [facility] M. pneumoniae DNA Not Detected Not Detected [facility] Nasopharyngeal 06/08/2022 8: 08 PM CDT 06/08/2022 9:19 PM CDT Narrative [facility] - 06/08/2022 10:13 PM CDT Previously covid negative Is the Patient experiencing symptoms consistent with COVID?->Unknown Reason for testing?->Patient history unknown Surveillance testing for transplant patient?->No ??Interpretive Data The writewith FilmArray Respiratory Panel (RP2.1) assay is a [...] assay has FDA clearance for testing of OPTICAL INSTRUMENT INSPECTOR swabs. ??The performance of additional specimen types has been assessed by the performing laboratory. ??The performance characteristics of this assay have been determined by [facility]. Current interpretive data was last revised on 22. us Catherine Adams MD LAB MICROBIOLOGY - GENERAL ORDERABLES Final Result Performing Organization Address City/[facility] Co de Phone Number [facility] [place] [address] * Beta-hydroxybutyrate (06/08/2022 8:08 PM CDT) Pathologist [facility] Beta-Hydroxybut yrate 0.3 0.0 - 0.5 mmol/L [facility] Blood 06/08/2022 8:08 PM CDT 06/08/2022 8:15 PM CDT us Marcelina Lo NP LAB BLOOD ORDERABLES Final Re sult Performing Organization Address [facility] [place]/[facility] Co de Phone Number [facility] [place] [address] * (ABNORMAL) Lactate dehydrogenase (LD) (06/08/2022 8:08 PM CDT) [facility] Lactate dehydrogenase (LDH) 444(H) 100 - 250 Units/L [facility] Blood 06/08/2022 8:08 PM CDT 06/08/2022 8:31 PM CDT us Catherine Adams MD LAB BLOOD ORDERABLES Final Result Performing Organization Address [facility] [place]/[facility] Co de Phone Number [facility] [place] [address] * (ABNORMAL) Comprehensive metabolic panel (06/08/2022 8:08 PM CDT) Pathologist [facility] Sodium 136 135 - 145 mmol/L [facility] Potassium, pl 4.3 3.3 - 4.9 mmol/L [facility] Chloride 100 97 - 110 mmol/L [facility] CO2 27 22 - 32 mmol/L [facility] Anion gap 9 2 - 15 mmol/L [facility] BUN 42(H) 8 - 25 mg/dL [facility] Creatinine 4.73(H) 0.80 - 1.30 mg/dL [facility] Glucose 146 70 - 199 mg/dL [facility] Comment: Interpretive Data Fasting glucose >/= [...] 2017. Calcium 8.4(L) 8.5 - 10.3 mg/dL [facility] Bilirubin, total 0.5 0.1 - 1.2 mg/dL [facility] Protein, pl 5.8(L) 6.5 - 8.5 g/dL [facility] Albumin 2.8(L) 3.5 - 5.0 g/dL [facility] Alk phos 153(H) 40 - 130 Units/L [facility] ALT 40 7 - 55 Units/L [facility] AST 137(H) 10 - 50 Units/L [facility] Blood 06/08/2022 8:08 PM CDT 06/08/2022 8:31 PM CDT Conrad Weston Chi, MD LAB BLOOD ORDERABLES Ann Marie kramer Result [facility] [place] [address] * (ABNORMAL) CBC with auto differential (06/08/2022 8:08 PM CDT) Pathologist [facility] WBC 9.3 3.8 - 9.9 K/cumm [facility] Hgb 6.9(L) 13.0 - 17.5 g/dL [facility] Hct 19.9(L) 38.9 - 50.3 % [facility] Plt 207 150 - 400 K/cumm [facility] MPV 11.2 9.1 - 12.3 fL [facility] RBC 2.20(L) 4.30 - 5.80 M/cumm [facility] MCV 90.5 81.3 - 96.4 fL [facility] MCH 31.4 27.1 - 33.3 pg [facility] MCHC 34.7 32.3 - 35.7 g/dL [facility] RDW CV 13.5 11.1 - 14.9 % [facility] RDW SD 44.4 35.7 - 48.1 fL [facility] NRBC abs 0.00 0.00 - 0.01 K/cumm [facility] Blood 06/08/2022 8:08 PM CDT 06/08/2022 8:30 PM CDT us Marcelina Lo NP LAB BLOOD ORDERABLES Final Re sult Performing Organization Address City/[facility]/ZIP Co de Phone Number [facility] [place] [address] * POCT glucose (06/08/2022 8:04 PM CDT) Glucose, POC 153 70 - 199 mg/dL [facility] Blood 06/08/2022 8:04 PM CDT 06/08/2022 8:04 PM CDT us Catherine Adams MD LAB POCT ORDERABLES - DEVIC E Final Result [facility] [place] [address] * POCT glucose (06/08/2022 8:03 PM CDT) Glucose, POC 162 70 - 199 mg/dL [facility] Blood 06/08/2022 8:03 PM CDT 06/08/2022 8:03 PM CDT Catherine Adams MD LAB POCT ORDERABLES - DEVIC E Final Result Performing Organization Address City/[facility] Co de Phone Number [facility] [place] [address] * POCT glucose (06/08/2022 4:20 PM CDT) Glucose, POC 135 70 - 199 mg/dL [facility] Blood 06/08/2022 4:20 PM CDT 06/08/2022 4:20 PM CDT Catherine Adams MD LAB POCT ORDERABLES - DEVIC E Final Result Performing Organization Address [facility] [place] [address] * Lactate, whole blood (06/08/2022 4:20 PM CDT) Lactate, bld 1.2 0.7 - 2.0 mmol/L [facility] Blood 06/08/2022 4:20 PM CDT 06/08/2022 4:44 PM CDT Marcelina Lo NP LAB BLOOD ORDERABLES Final Re sult Performing Organization Address [facility] Co de Phone Number [facility] [place] [address] * (ABNORMAL) aPTT (06/08/2022 4:20 PM CDT) aPTT 25(L) 27 - 37 sec [facility] Comment: Interpretive Data Therapeutic heparin range: 60.0 - 94.0 seconds. Based on correlation with therapeutic heparin activity range of 0.3-0.7 Units/mL. Current interpretive data was last revised on 2020. Blood 06/08/2022 4:20 PM CDT 06/08/2022 4:56 PM CDT Narrative [facility] - 06/08/2022 5:12 PM CDT [...] Ann Marie l Result Performing Organization Address City/[facility]/ZIP Co de Phone Number [facility] [place] [address] * (ABNORMAL) Hemoglobin total, pulmonary artery (06/08/2022 4:20 PM CDT) Hemoglobin total, PA 8.4(L) 13.0 - 17.5 g/dL [facility] Blood 06/08/2022 4:20 PM CDT 06/08/2022 4:44 PM CDT us Marcelina Lo NP LAB BLOOD ORDERABLES Final Re sult Performing Organization Address [facility] Co de Phone Number [facility] [place] [address] * (ABNORMAL) Blood gas, arterial (06/08/2022 4:20 PM CDT) pH, Art 7.44 7.35 - 7.45 [facility] PCO2, Arterial 36 35 - 45 mmHg [facility] PO2, Arterial 156(H) 83 - 108 mmHg [facility] HCO3 Art (Calculated) 25 20 - 30 mmol/L [facility] BE, art 0 mmol/L [facility] Comment: Interpretive Data No Reference Range Established Current Interpretive Data was last revised on 2017 O2 Sat Art (Measured) 98(H) 90 - 95 % [facility] Blood 06/08/2022 4:20 PM CDT 06/08/2022 4:44 PM CDT Marcelina Lo OPTICAL INSTRUMENT INSPECTOR LAB BLOOD ORDERABLES Final Re sult Performing Organization Address [facility] Co de Phone Number [facility] [place] [address] * Oxyhemoglobin, pulmonary artery (06/08/2022 4:20 PM CDT) Oxyhemoglobin, PA 63.1 % [facility] Comment: Interpretive Data No reference range established. Current interpretive data was last revised 2019. Blood 06/08/2022 4:20 PM CDT 06/08/2022 4:44 PM CDT Marcelina Lo OPTICAL INSTRUMENT INSPECTOR LAB BLOOD ORDERABLES Final Re sult Performing Organization Address [facility] de Phone Number [facility] [place] [address] * TRANSTHORACIC ECHO (TTE) COMPLETE W DOPPLER/CF W CONTRAST (06/08/2022 2:50 PM CDT) Pathologist [facility] LV EF 56 % CARDI[facility] Anatomical Region Laterality Modality Ultrasound 06/08/2022 12:3 0 PM CDT Narrative 06/08/2022 4:00 PM CDT Patient name: Adelia Garvin Date of test: 06/08/2022 Type of test: TTE w/Doppler Hospital #: [id number] Date of : 1970 (M) [employer]ing Press Operator: Elli Larsen RDCS Referring Physician: CATHERINE ADAMS MD Contrast Agent: Contrast Administered by: Supervised/Interpreted by: Baldomero Foster MD Diagnosis: Location: [facility] Reason for test: HF with impella [...] 2=Hypo 3=Akinetic 4=Dyskin./Aneurysm 0=Not visualized) Parasternal Long [place]:MAS=2 BAS=1 MIL=1 IVETH=1 Parasternal Short [place]:MAS=2 MIS=1 VA=1 MIL=1 MAL=2 MA=1 Apical 4 [...] MD By signing this report, the attending motor coach driver certifies that he or she has personally supervised and interpreted the echocardiogram and has reviewed and or edited and agrees with the written comments contained within the report. Procedure Note Baldomero Foster MD - 06/08/2022 Patient name: Adelia Garvin Date of test: 06/08/2022 Type of test: TTE w/Doppler [facility] #: [id number] Date of : 1970 (M) [employer] Operator: Elli Larsen [facility] Referring Physician: CATHERINE ADAMS MD Contrast Agent: Contrast Administered by: Supervised/Interpreted by: Baldomero Foster MD Diagnosis: Location: [facility] Reason for test: HF with impella [...] 2=Hypo 3=Akinetic 4=Dyskin./Aneurysm 0=Not visualized) Parasternal Long [place]:MAS=2 BAS=1 MIL=1 IVETH=1 Parasternal Short [place]:MAS=2 MIS=1 VA=1 MIL=1 MAL=2 MA=1 Apical 4 [...] MD By signing this report, the attending motor coach driver certifies that he or she has personally [...] vena cava. There is an inferior approach [place]-Liv catheter with tip overlying the right main pulmonary artery. An Impella device is present. A gastric tube courses below the inferior margin of the study. The inferior mediastinum and the entire left hemidiaphragm are excluded from the [id number]. The imaged cardiomediastinal silhouette appears stable. There [...] vena cava. There is an inferior approach [place]-Liv catheter with tip overlying the right main pulmonary artery. An Impella device is present. A gastric tube courses below the inferior margin of the study. The inferior mediastinum and the entire left hemidiaphragm are excluded from the [id number]. The imaged cardiomediastinal silhouette appears stable. There [...] Potassium, whole blood (06/08/2022 11:49 AM CDT) [facility] Potassium, bld 4.1 3.3 - 4.9 mmol/L [facility] Blood 06/08/2022 11:4 9 AM CDT 06/08/2022 12:18 PM CDT Marcelina Lo OPTICAL INSTRUMENT INSPECTOR LAB BLOOD ORDERABLES Final Re sult Performing Organization Address City/[facility]/ZIP Co de Phone Number [facility] [place] [place] [address] * (ABNORMAL) Hemoglobin total, pulmonary artery (06/08/2022 11:49 AM CDT) [facility] Hemoglobin total, PA 8.4(L) 13.0 - 17.5 g/dL [facility] Blood 06/08/2022 11:4 9 AM CDT 06/08/2022 12:18 PM CDT Marcelina Lo OPTICAL INSTRUMENT INSPECTOR LAB BLOOD ORDERABLES Final Re sult [facility] [place] [address] * Oxyhemoglobin, pulmonary artery (06/08/2022 11:49 AM CDT) Oxyhemoglobin, PA 63.8 % [facility] Comment: Interpretive Data No reference range established. Current interpretive data was last revised 2019. Blood 06/08/2022 11:4 9 AM CDT 06/08/2022 12:18 PM CDT Marcelina Lo OPTICAL INSTRUMENT INSPECTOR LAB BLOOD ORDERABLES Final Re sult Performing Organization Address [facility] Co de Phone Number [facility] [place] [address] * POCT glucose (06/08/2022 11:46 AM CDT) Glucose, POC 140 70 - 199 mg/dL [facility] Blood 06/08/2022 11:4 6 AM CDT 06/08/2022 11:46 AM CDT Result [facility] Catherine Adams MD LAB POCT ORDERABLES - DEVIC E Final Result Performing Organization Address [facility] de Phone Number [facility] [place] [address] * (ABNORMAL) Blood gas, arterial (06/08/2022 10:44 AM CDT) pH, Art 7.44 7.35 - 7.45 [facility] PCO2, Arterial 34(L) 35 - 45 mmHg [facility] PO2, Arterial 108 83 - 108 mmHg [facility] HCO3 Art (Calculated) 24 20 - 30 mmol/L [facility] BE, art 0 mmol/L [facility] Comment: Interpretive Data No Reference Range Established Current Interpretive Data was last revised on 2017 O2 Sat Art (Measured) 98(H) 90 - 95 % [facility] Blood 06/08/2022 10:4 4 AM CDT 06/08/2022 10:58 AM CDT Result [facility] Marcelina Lo OPTICAL INSTRUMENT INSPECTOR LAB BLOOD ORDERABLES Final Re sult Performing Organization Address [facility]/ZIP Co de Phone Number [facility] [place] [address] * POCT glucose (06/08/2022 8:31 AM CDT) Glucose, POC 160 70 - 199 mg/dL [facility] Blood 06/08/2022 8:31 AM CDT 06/08/2022 8:31 AM CDT us Catherine Adams MD LAB POCT ORDERABLES - DEVIC E Final Result Performing Organization Address [facility] de Phone Number [facility] [place] [address] * (ABNORMAL) Blood gas, arterial (06/08/2022 7:57 AM CDT) [facility] pH, Art 7.40 7.35 - 7.45 [facility] PCO2, Arterial 38 35 - 45 mmHg [facility] PO2, Arterial 99 83 - 108 mmHg [facility] HCO3 Art (Calculated) 25 20 - 30 mmol/L [facility] BE, art 0 mmol/L [facility] Comment: Interpretive Data No Reference Range Established Current Interpretive Data was last revised on 2017 O2 Sat Art (Measured) 97(H) 90 - 95 % [facility] Blood 06/08/2022 7:57 AM CDT 06/08/2022 8:22 AM CDT us Marcelina Lo OPTICAL INSTRUMENT INSPECTOR LAB BLOOD ORDERABLES Final Re sult Performing Organization Address [facility] Co de Phone Number [facility] [place], [place] [address] * (ABNORMAL) Hemoglobin total, pulmonary artery (06/08/2022 7:57 AM CDT) Hemoglobin total, PA 8.8(L) 13.0 - 17.5 g/dL [facility] Blood 06/08/2022 7:57 AM CDT 06/08/2022 8:22 AM CDT Marcelina Lo OPTICAL INSTRUMENT INSPECTOR LAB BLOOD ORDERABLES Final Re sult Performing Organization Address [facility] Co de Phone Number [facility] [place] [address] * Oxyhemoglobin, pulmonary artery (06/08/2022 7:57 AM CDT) Oxyhemoglobin, PA 65.7 % [facility] Comment: Interpretive Data No reference range established. Current interpretive data was last revised 2019. Blood 06/08/2022 7:57 AM CDT 06/08/2022 8:22 AM CDT Marcelina Lo OPTICAL INSTRUMENT INSPECTOR LAB BLOOD ORDERABLES Final Re sult Performing Organization Address [facility] de Phone Number [facility] [place] [address] * X-ray chest 1 view - Portable [...] Impella device. There is an inferior approach [place]Liv catheter with tip overlying the proximal right [...] Impella device. There is an inferior approach [place]Liv catheter with tip overlying the proximal right [...] Glucose, POC 157 70 - 199 mg/dL [facility] Blood 06/08/2022 6:29 AM CDT 06/08/2022 6:29 AM CDT Catherine Adams MD LAB POCT ORDERABLES - DEVIC E Final Result Performing Organization Address [facility] de Phone Number [facility] [place] [place] [address] * POCT glucose (06/08/2022 5:26 AM CDT) Glucose, POC 121 70 - 199 mg/dL [facility] Blood 06/08/2022 5:26 AM CDT 06/08/2022 5:26 AM CDT Result [facility] Catherine Adams MD LAB POCT ORDERABLES - DEVIC E Final Result Performing Organization Address [facility] de Phone Number [facility] [place] [address] * POCT glucose (06/08/2022 4:16 AM CDT) [facility] Glucose, POC 111 70 - 199 mg/dL [facility] Blood 06/08/2022 4:16 AM CDT 06/08/2022 4:16 AM CDT Result [facility] Catherine Adams MD LAB POCT ORDERABLES - DEVIC E Final Result Performing Organization Address [facility] de Phone Number [facility] [place] [address] * (ABNORMAL) eGFR (06/08/2022 4:12 AM CDT) [facility] eGFR 8(L) 90 - 130 mL/min/1. 73 m2 [facility] Comment: Interpretive Data Reference Interval Normal [...] Final Result Performing Organization Address [facility] de Phone Number [facility] [place] [address] * (ABNORMAL) Hemoglobin total, pulmonary artery (06/08/2022 4:12 AM CDT) Hemoglobin total, PA 8.6(L) 13.0 - 17.5 g/dL [facility] Blood 06/08/2022 4:12 AM CDT 06/08/2022 4:30 AM CDT us Marcelina Lo OPTICAL INSTRUMENT INSPECTOR LAB BLOOD ORDERABLES Final Re sult Performing Organization Address City/[facility] Co de Phone Number [facility] [place] [address] * (ABNORMAL) Blood gas, arterial (06/08/2022 4:12 AM CDT) Pathologist [facility] pH, Art 7.41 7.35 - 7.45 [facility] PCO2, Arterial 37 35 - 45 mmHg [facility] PO2, Arterial 57(L) 83 - 108 mmHg [facility] HCO3 Art (Calculated) 24 20 - 30 mmol/L [facility] BE, art -1 mmol/L [facility] Comment: Interpretive Data No Reference Range Established Current Interpretive Data was last revised on 2017 O2 Sat Art (Measured) 88(L) 90 - 95 % [facility] Blood 06/08/2022 4:12 AM CDT 06/08/2022 4:30 AM CDT us Marcelina Lo OPTICAL INSTRUMENT INSPECTOR LAB BLOOD ORDERABLES Final Re sult Performing Organization Address City/[facility]/ZIP Co de Phone Number [facility] [place] [address] * Oxyhemoglobin, pulmonary artery (06/08/2022 4:12 AM CDT) [facility] Oxyhemoglobin, PA 66.9 % [facility] Comment: Interpretive Data No reference range established. Current interpretive data was last revised 2019. Blood 06/08/2022 4:12 AM CDT 06/08/2022 4:30 AM CDT Marcelina Lo OPTICAL INSTRUMENT INSPECTOR LAB BLOOD [place]AB[place] [address] * Magnesium (06/08/2022 4:12 AM CDT) Pathologist [facility] Magnesium 2.3 1.4 - 2.5 mg/dL [facility] Blood 06/08/2022 4:12 AM CDT 06/08/2022 4:38 AM CDT Catherine Adams MD LAB BLOOD ORDERABLES Final Result [facility] [place] [address] * (ABNORMAL) Basic metabolic panel (06/08/2022 4:12 AM CDT) [facility] Sodium 135 135 - 145 mmol/L [facility] Potassium, pl 4.0 3.3 - 4.9 mmol/L [facility] Chloride 99 97 - 110 mmol/L [facility] CO2 26 22 - 32 mmol/L [facility] Anion gap 10 2 - 15 mmol/L [facility] BUN 67(H) 8 - 25 mg/dL [facility] Creatinine 7.65(H) 0.80 - 1.30 mg/dL [facility] Glucose 109 70 - 199 mg/dL [facility] Comment: Interpretive Data Fasting glucose >/= [...] 2017. Calcium 8.2(L) 8.5 - 10.3 mg/dL [facility] Blood 06/08/2022 4:12 AM CDT 06/08/2022 4:38 AM CDT Catherine Adams MD LAB BLOOD ORDERABLES Final Result Performing Organization Address City/[facility]/ZIP Co de Phone Number [facility] [place] [address] * POCT glucose (06/08/2022 3:00 AM CDT) Glucose, POC 135 70 - 199 mg/dL [facility] Blood 06/08/2022 3:00 AM CDT 06/08/2022 3:00 AM CDT Catherine Adams MD LAB POCT ORDERABLES - DEVIC E Final Result [facility] [place] [address] * (ABNORMAL) Differential, auto (06/08/2022 2:14 AM CDT) Pathologist [facility] Neutrophil abs 8.2(H) 1.7 - 6.5 K/cumm [facility] Imm gran abs 0.4(H) 0.0 - 0.1 K/cumm [facility] Lymphocyte abs 0.5(L) 0.8 - 3.3 K/cumm [facility] Monocyte abs 1.0(H) 0.2 - 0.8 K/cumm [facility] Eosinophil abs 0.0 0.0 - 0.5 K/cumm [facility] Basophil abs 0.0 0.0 - 0.1 K/cumm [facility] Neutrophil pct 81.0 % [facility] Comment: Interpretive Data Percent cell count reference ranges are not reported, since discordance with absolute values may lead to misinterpretation of CBC data. Current Interpretive Data was last revised on 2017. Imm gran pct 3.8 % [facility] Comment: Interpretive Data Percent cell count reference ranges are not reported, since discordance with absolute values may lead to misinterpretation of CBC data. Current Interpretive Data was last revised on 2017. Lymphocyte pct 5.0 % [facility] Comment: Interpretive Data Percent cell count reference ranges are not reported, since discordance with absolute values may lead to misinterpretation of CBC data. Current Interpretive Data was last revised on 2017. Monocyte pct 10.1 % [facility] Comment: Interpretive Data Percent cell count reference ranges are not reported, since discordance with absolute values may lead to misinterpretation of CBC data. Current Interpretive Data was last revised on 2017. Eosinophil pct 0.0 % [facility] Comment: Interpretive Data Percent cell count reference ranges are not reported, since discordance with absolute values may lead to misinterpretation of CBC data. Current Interpretive Data was last revised on 2017. Basophil pct 0.1 % [facility] Comment: Interpretive Data Percent cell count reference ranges are not reported, since discordance with absolute values may lead to misinterpretation of CBC data. Current Interpretive Data was last revised on 2017. Blood 06/08/2022 2:14 AM CDT 06/08/2022 4:38 AM CDT Catherine Adams MD LAB BLOOD ORDERABLES Final Result Performing Organization Address [facility] [place]/[facility] Co de Phone Number [facility] [place] [address] * POCT glucose (06/08/2022 2:14 AM CDT) Glucose, POC 141 70 - 199 mg/dL [facility] Blood 06/08/2022 2:14 AM CDT 06/08/2022 2:14 AM CDT Catherine Adams MD LAB POCT ORDERABLES - DEVIC E Final Result Performing Organization Address City/[facility] Co de Phone Number [facility] [place] [address] * Potassium, whole blood (06/08/2022 2:14 AM CDT) Potassium, bld 4.0 3.3 - 4.9 mmol/L [facility] Blood 06/08/2022 2:14 AM CDT 06/08/2022 2:22 AM CDT Marcelina Lo OPTICAL INSTRUMENT INSPECTOR LAB BLOOD ORDERABLES Final Re sult Performing Organization Address [facility] [place]/[facility] Co de Phone Number [facility] [place] [address] * (ABNORMAL) Blood gas, arterial (06/08/2022 2:14 AM CDT) pH, Art 7.45 7.35 - 7.45 [facility] PCO2, Arterial 33(L) 35 - 45 mmHg [facility] PO2, Arterial 180(H) 83 - 108 mmHg [facility] HCO3 Art (Calculated) 24 20 - 30 mmol/L [facility] BE, art -1 mmol/L [facility] Comment: Interpretive Data No Reference Range Established Current Interpretive Data was last revised on 2017 O2 Sat Art (Measured) 98(H) 90 - 95 % [facility] Blood 06/08/2022 2:14 AM CDT 06/08/2022 2:22 AM CDT Marcelina Lo OPTICAL INSTRUMENT INSPECTOR LAB BLOOD ORDERABLES Final Re sult Performing Organization Address [facility] [place]/[facility] Co de Phone Number [facility] [place] [address] * (ABNORMAL) CBC with auto differential (06/08/2022 2:14 AM CDT) Pathologist [facility] WBC 10.1(H) 3.8 - 9.9 K/cumm [facility] Hgb 8.3(L) 13.0 - 17.5 g/dL [facility] Hct 23.1(L) 38.9 - 50.3 % [facility] Plt 218 150 - 400 K/cumm [facility] MPV 11.1 9.1 - 12.3 fL [facility] RBC 2.60(L) 4.30 - 5.80 M/cumm [facility] MCV 88.8 81.3 - 96.4 fL [facility] MCH 31.9 27.1 - 33.3 pg [facility] MCHC 35.9(H) 32.3 - 35.7 g/dL [facility] RDW CV 13.3 11.1 - 14.9 % [facility] RDW SD 43.1 35.7 - 48.1 fL [facility] NRBC abs 0.00 0.00 - 0.01 K/cumm [facility] Blood 06/08/2022 2:14 AM CDT 06/08/2022 4:38 AM CDT us Marcelina Lo OPTICAL INSTRUMENT INSPECTOR LAB BLOOD ORDERABLES Final Re sult Performing Organization Address City/[facility]/ZIP Co de Phone Number [facility] [place] [address] * POCT glucose (06/08/2022 1:13 AM CDT) Glucose, POC 151 70 - 199 mg/dL [facility] Blood 06/08/2022 1:13 AM CDT 06/08/2022 1:13 AM CDT us Catherine Adams MD LAB POCT ORDERABLES - DEVIC E Final Result Performing Organization Address [facility] [place]/[facility] Co de Phone Number [facility] [place] [address] * (ABNORMAL) Blood gas, arterial (06/08/2022 12:30 AM CDT) pH, Art 7.50(H) 7.35 - 7.45 [facility] PCO2, Arterial 28(L) 35 - 45 mmHg [facility] PO2, Arterial 144(H) 83 - 108 mmHg [facility] HCO3 Art (Calculated) 22 20 - 30 mmol/L [facility] BE, art 0 mmol/L [facility] Comment: Interpretive Data No Reference Range Established Current Interpretive Data was last revised on 2017 O2 Sat Art (Measured) 98(H) 90 - 95 % [facility] Blood 06/08/2022 12:3 0 AM CDT 06/08/2022 12:39 AM CDT us Marcelina Lo NP LAB BLOOD ORDERABLES Final Re sult Performing Organization Address City/[facility]/ZIP Co de Phone Number [facility] [place] [address] * (ABNORMAL) eGFR (06/08/2022 12:28 AM CDT) eGFR 7(L) 90 - 130 mL/min/1. 73 m2 [facility] Comment: Interpretive Data Reference Interval Normal [...] MD LAB BLOOD ORDERABLES Final Result [facility] [place] [address] * (ABNORMAL) Hemoglobin total, pulmonary artery (06/08/2022 12:28 AM CDT) Hemoglobin total, PA 9.0(L) 13.0 - 17.5 g/dL [facility] Blood 06/08/2022 12:2 8 AM CDT 06/08/2022 12:39 AM CDT Marcelina Lo OPTICAL INSTRUMENT INSPECTOR LAB BLOOD ORDERABLES Final Re sult Performing Organization Address City/[facility] Co de Phone Number [facility] [place] [address] * Oxyhemoglobin, pulmonary artery (06/08/2022 12:28 AM CDT) Oxyhemoglobin, PA 59.2 % [facility] Comment: Interpretive Data No reference range established. Current interpretive data was last revised 2019. Blood 06/08/2022 12:2 8 AM CDT 06/08/2022 12:39 AM CDT Marcelina Lo OPTICAL INSTRUMENT INSPECTOR LAB BLOOD ORDERABLES Final Re sult Performing Organization Address City/[facility]/ZIP Co de Phone Number [facility] [place] [address] * Potassium, whole blood (06/08/2022 12:28 AM CDT) Potassium, bld 3.5 3.3 - 4.9 mmol/L [facility] Blood 06/08/2022 12:2 8 AM CDT 06/08/2022 12:39 AM CDT Catherine Adams MD LAB BLOOD ORDERABLES Final Result [facility] [place] [address] * Magnesium (06/08/2022 12:28 AM CDT) [facility] Magnesium 2.2 1.4 - 2.5 mg/dL [facility] Blood 06/08/2022 12:2 8 AM CDT 06/08/2022 12:42 AM CDT Catherine Adams MD LAB BLOOD ORDERABLES Final Result Performing Organization Address [facility]/ZIP Co de Phone Number [facility] [place] [address] * Beta-hydroxybutyrate (06/08/2022 12:28 AM CDT) [facility] Beta-Hydroxybut yrate 0.1 0.0 - 0.5 mmol/L [facility] Blood 06/08/2022 12:2 8 AM CDT 06/08/2022 12:39 AM CDT Catherine Adams MD LAB BLOOD ORDERABLES Edited Result - Final Performing Organization Address [facility] de Phone Number [facility] [place] [address] * (ABNORMAL) Basic metabolic panel (06/08/2022 12:28 AM CDT) [facility] Sodium 135 135 - 145 mmol/L [facility] Potassium, pl 3.5 3.3 - 4.9 mmol/L [facility] Chloride 96(L) 97 - 110 mmol/L [facility] CO2 23 22 - 32 mmol/L [facility] Anion gap 16(H) 2 - 15 mmol/L [facility] BUN 69(H) 8 - 25 mg/dL [facility] Creatinine 8.46(H) 0.80 - 1.30 mg/dL [facility] Glucose 147 70 - 199 mg/dL [facility] Comment: Interpretive Data Fasting glucose >/= [...] 2017. Calcium 7.8(L) 8.5 - 10.3 mg/dL [facility] Blood 06/08/2022 12:2 8 AM CDT 06/08/2022 12:42 AM CDT Catherine Adams MD LAB BLOOD ORDERABLES Final Result Performing Organization Address [facility] de Phone Number [facility] [place] [address] * POCT glucose (06/08/2022 12:09 AM CDT) Glucose, POC 169 70 - 199 mg/dL [facility] Blood 06/08/2022 12:0 9 AM CDT 06/08/2022 12:09 AM CDT Catherine Adams MD LAB POCT ORDERABLES - DEVIC E Final Result Performing Organization Address [facility] de Phone Number [facility] [place] [address] * (ABNORMAL) eGFR (06/07/2022 10:58 PM CDT) eGFR 7(L) 90 - 130 mL/min/1. 73 m2 [facility] Comment: Interpretive Data Reference Interval Normal [...] BLOOD ORDERABLES Final Result Performing Organization Address City/[facility]/ZIP Co de Phone Number [facility] [place] [place] [address] * (ABNORMAL) POCT glucose (06/07/2022 10:58 PM CDT) [facility] Glucose, POC 211(H) 70 - 199 mg/dL [facility] Blood 06/07/2022 10:5 8 PM CDT 06/07/2022 10:58 PM CDT Catherine Adams MD LAB POCT ORDERABLES - DEVIC E Final Result Performing Organization Address City/[facility]/ZIP Co de Phone Number [facility] [place] [address] * Lactate, whole blood (06/07/2022 10:58 PM CDT) Lactate, bld 1.8 0.7 - 2.0 mmol/L [facility] Blood 06/07/2022 10:5 8 PM CDT 06/07/2022 11:05 PM CDT Catherine Adams MD LAB BLOOD ORDERABLES Final Result [facility] [place] [address] * Potassium, whole blood (06/07/2022 10:58 PM CDT) [facility] Potassium, bld 3.4 3.3 - 4.9 mmol/L [facility] Blood 06/07/2022 10:5 8 PM CDT 06/07/2022 11:05 PM CDT Result [facility] Catherine Adams MD LAB BLOOD ORDERABLES Final Result Performing Organization Address [facility] [place]/[facility] de Phone Number [facility] [place] [address] * (ABNORMAL) Phosphorus (06/07/2022 10:58 PM CDT) Pathologist [facility] Phosphorus, pl 4.7(H) 2.3 - 4.5 mg/dL [facility] Comment:Reviewed Blood 06/07/2022 10:5 8 PM CDT 06/07/2022 11:20 PM CDT Catherine Adams MD LAB BLOOD ORDERABLES Final Result Performing Organization Address City/[facility] Co de Phone Number [facility] [place] [address] * Magnesium (06/07/2022 10:58 PM CDT) Pathologist [facility] Magnesium 2.2 1.4 - 2.5 mg/dL [facility] Blood 06/07/2022 10:5 8 PM CDT 06/07/2022 11:20 PM CDT Catherine Adams MD LAB BLOOD ORDERABLES Final Result [facility] [place] [address] * Beta-hydroxybutyrate (06/07/2022 10:58 PM CDT) [facility] Beta-Hydroxybut yrate 0.1 0.0 - 0.5 mmol/L [facility] Blood 06/07/2022 10:5 8 PM CDT 06/07/2022 11:05 PM CDT Catherine Adams MD LAB BLOOD ORDERABLES Final Result Performing Organization Address City/[facility] Co de Phone Number [facility] [place] [address] * (ABNORMAL) Basic metabolic panel (06/07/2022 10:58 PM CDT) [facility] Sodium 134(L) 135 - 145 mmol/L [facility] Potassium, pl 3.4 3.3 - 4.9 mmol/L [facility] Chloride 95(L) 97 - 110 mmol/L [facility] CO2 23 22 - 32 mmol/L [facility] Anion gap 16(H) 2 - 15 mmol/L [facility] BUN 75(H) 8 - 25 mg/dL [facility] Creatinine 8.92(H) 0.80 - 1.30 mg/dL [facility] Glucose 187 70 - 199 mg/dL [facility] Comment: Interpretive Data Fasting glucose >/= [...] 2017. Calcium 8.1(L) 8.5 - 10.3 mg/dL [facility] Blood 06/07/2022 10:5 8 PM CDT 06/07/2022 11:20 PM CDT us Catherine Adams MD LAB BLOOD ORDERABLES Final Result [facility] [place] [address] * (ABNORMAL) Blood gas, arterial (06/07/2022 10:58 PM CDT) pH, Art 7.46(H) 7.35 - 7.45 [facility] PCO2, Arterial 31(L) 35 - 45 mmHg [facility] PO2, Arterial 73(L) 83 - 108 mmHg [facility] HCO3 Art (Calculated) 22 20 - 30 mmol/L [facility] BE, art -2 mmol/L [facility] Comment: Interpretive Data No Reference Range Established Current Interpretive Data was last revised on 2017 O2 Sat Art (Measured) 95 90 - 95 % [facility] Blood 06/07/2022 10:5 8 PM CDT 06/07/2022 11:05 PM CDT us Marcelina Lo NP LAB BLOOD ORDERABLES Final Re sult [facility] [place] [address] * MI ARTL CATHJ/CANNULJ MNTR/TRANSFUSION SPX PRQ (06/07/2022 10:17 PM CDT) Narrative Eric Reed MD - 06/07/2022 10:17 PM CDT Lavern Morrison MD ? 06/07/2022 10:29 PM Arterial Line Insertion Date/Time: 06/07/2022 10:17 PM Performed by: Lavern Morrison MD Authorized by: Lavern Morrison MD [place] Protocol: RN Notified of Procedure: yes ?? [...] POC 249(H) 70 - 199 mg/dL [facility] Blood 06/07/2022 9:58 PM CDT 06/07/2022 9:58 PM CDT us Catherine Adams MD LAB POCT ORDERABLES - DEVIC E Final Result [facility] [place] [address] * XR Abdomen Ap 1 Vw (06/07/2022 [...] over the gastric body. Dictated by: Shiva Anyaa MD The radiology attending physician has personally reviewed this study, and had reviewed and/or edited this written report and agrees with it. Electronically signed by: Félix Chahal M.D. Catherine Adams MD IMG XR PROCEDURES Final Res ult * Reticulocyte Count (06/07/2022 8:54 PM CDT) [facility] Retics, absolute 0.052 0.020 - 0.087 M/cumm [facility] Retics 2.2 0.4 - 2.9 % [facility] Reticulocyte Hgb 31.7 30.5 - 38.0 pg [facility] Blood 06/07/2022 8:54 PM CDT 06/07/2022 9:52 PM CDT Result [facility] Catherine Adams MD LAB BLOOD ORDERABLES Final Result Performing Organization Address [facility] [place]/[facility] Co de Phone Number [facility] [place] [address] * (ABNORMAL) Hemoglobin and hematocrit (06/07/2022 8:54 PM CDT) [facility] Hgb 7.5(L) 13.0 - 17.5 g/dL [facility] Comment:Hemoglobin delta due to apparent blood transfusion. Hct 20.9(L) 38.9 - 50.3 % [facility] Blood 06/07/2022 8:54 PM CDT 06/07/2022 9:47 PM CDT Catherine Adams MD LAB BLOOD ORDERABLES Final Result Performing Organization Address City/[facility]/ZIP Co de Phone Number [facility] [employer] [place], [place] [id number] * (ABNORMAL) POCT glucose (06/07/2022 8:50 PM CDT) Glucose, POC 304(H) 70 - 199 mg/dL [facility] Blood 06/07/2022 8:50 PM CDT 06/07/2022 8:50 PM CDT Catherine dAams MD LAB POCT ORDERABLES - DEVIC E Final Result Performing Organization Address City/[facility] Co de Phone Number [facility] [place] [address] * (ABNORMAL) Haptoglobin (06/07/2022 8:00 PM CDT) Haptoglobin 312.0(H) 30.0 - 200.0 mg/dL [facility] Blood 06/07/2022 8:00 PM CDT 06/07/2022 8:26 PM CDT Catherine Adams MD LAB BLOOD ORDERABLES Final Result Performing Organization Address [facility] [place]/[facility] de Phone Number [facility] [place] [address] * (ABNORMAL) Lactate dehydrogenase (LD) (06/07/2022 8:00 PM CDT) Lactate dehydrogenase (LDH) 335(H) 100 - 250 Units/L [facility] Blood 06/07/2022 8:00 PM CDT 06/07/2022 8:26 PM CDT Catherine Adams MD LAB BLOOD ORDERABLES Final Result Performing Organization Address City/[facility] Co de Phone Number [facility] [place] [address] * (ABNORMAL) Ferritin (06/07/2022 8:00 PM CDT) Ferritin 2,062(H) 30 - 400 ng/mL [facility] Blood 06/07/2022 8:00 PM CDT 06/07/2022 8:26 PM CDT Catherine Adams MD LAB BLOOD ORDERABLES Final Result [facility] [place] [address] * (ABNORMAL) Iron profile w/ IBC (06/07/2022 8:00 PM CDT) [facility] Iron 50 50 - 150 mcg/dL [facility] TIBC 130(L) 250 - 400 mcg/dL [facility] Transferrin saturation 38 20 - 50 % [facility] Blood 06/07/2022 8:00 PM CDT 06/07/2022 8:26 PM CDT Catherine Adams MD LAB BLOOD [place] [address] * Folate (06/07/2022 8:00 PM CDT) Pathologist [facility] Folic acid 8.7 >=5.0 ng/mL [facility] Blood 06/07/2022 8:00 PM CDT 06/07/2022 8:26 PM CDT Catherine Adams MD LAB BLOOD [place] [address] * Vitamin B12 (06/07/2022 8:00 PM CDT) Pathologist [facility] Vitamin B12 373 230 - 1,250 pg/mL [facility] Blood 06/07/2022 8:00 PM CDT 06/07/2022 8:26 PM CDT Catherine Adams MD LAB BLOOD ORDERABLES Final Result Performing Organization Address [facility] [place]/[facility] [place] [address] * Oxyhemoglobin, pulmonary artery (06/07/2022 7:57 PM CDT) Oxyhemoglobin, PA 57.3 % [facility] Comment: Interpretive Data No reference range established. Current interpretive data was last revised 2019. Blood 06/07/2022 7:57 PM CDT 06/07/2022 8:09 PM CDT Result [facility] Marcelina Lo OPTICAL INSTRUMENT INSPECTOR LAB BLOOD ORDERABLES Final Re sult Performing Organization Address [facility] [place] [address] * (ABNORMAL) Hemoglobin total, pulmonary artery (06/07/2022 7:57 PM CDT) Hemoglobin total, PA 8.7(L) 13.0 - 17.5 g/dL [facility] Blood 06/07/2022 7:57 PM CDT 06/07/2022 8:09 PM CDT Result [facility] Marcelina Lo OPTICAL INSTRUMENT INSPECTOR LAB BLOOD ORDERABLES Final Re sult Performing Organization Address [facility] [place]/[facility] [place] [address] * (ABNORMAL) aPTT (06/07/2022 7:57 PM CDT) aPTT 44(H) 27 - 37 sec [facility] Comment: Interpretive Data Therapeutic heparin range: 60.0 - 94.0 seconds. Based on correlation with therapeutic heparin activity range of 0.3-0.7 Units/mL. Current interpretive data was last revised on 2020. Blood 06/07/2022 7:57 PM CDT 06/07/2022 8:14 PM CDT Narrative [facility] - 06/07/2022 8:20 PM CDT Draw STAT [...] l Result Performing Organization Address [facility] [place]/[facility] Co de Phone Number [facility] [place] [address] * Potassium, whole blood (06/07/2022 7:57 PM CDT) Potassium, bld 3.3 3.3 - 4.9 mmol/L [facility] Blood 06/07/2022 7:57 PM CDT 06/07/2022 8:09 PM CDT Result [facility] Catherine Adams MD LAB BLOOD ORDERABLES Final Result Performing Organization Address [facility] [place]/[facility] de Phone Number [facility] [place] [address] * (ABNORMAL) POCT glucose (06/07/2022 7:51 PM CDT) Glucose, POC 325(H) 70 - 199 mg/dL [facility] Blood 06/07/2022 7:51 PM CDT 06/07/2022 7:51 PM CDT Catherine Adams MD LAB POCT ORDERABLES - DEVIC E Final Result Performing Organization Address [facility] Co de Phone Number [facility] [place] [address] * (ABNORMAL) Differential, auto (06/07/2022 7:42 PM CDT) Neutrophil abs 7.3(H) 1.7 - 6.5 K/cumm [facility] Imm gran abs 0.2(H) 0.0 - 0.1 K/cumm [facility] Lymphocyte abs 0.6(L) 0.8 - 3.3 K/cumm [facility] Monocyte abs 0.5 0.2 - 0.8 K/cumm [facility] Eosinophil abs 0.0 0.0 - 0.5 K/cumm [facility] Basophil abs 0.0 0.0 - 0.1 K/cumm [facility] Neutrophil pct 85.1 % [facility] Comment: Interpretive Data Percent cell count reference ranges are not reported, since discordance with absolute values may lead to misinterpretation of CBC data. Current Interpretive Data was last revised on 2017. Imm gran pct 2.4 % [facility] Comment: Interpretive Data Percent cell count reference ranges are not reported, since discordance with absolute values may lead to misinterpretation of CBC data. Current Interpretive Data was last revised on 2017. Lymphocyte pct 6.6 % [facility] Comment: Interpretive Data Percent cell count reference ranges are not reported, since discordance with absolute values may lead to misinterpretation of CBC data. Current Interpretive Data was last revised on 2017. Monocyte pct 5.8 % [facility] Comment: Interpretive Data Percent cell count reference ranges are not reported, since discordance with absolute values may lead to misinterpretation of CBC data. Current Interpretive Data was last revised on 2017. Eosinophil pct 0.0 % [facility] Comment: Interpretive Data Percent cell count reference ranges are not reported, since discordance with absolute values may lead to misinterpretation of CBC data. Current Interpretive Data was last revised on 2017. Basophil pct 0.1 % [facility] Comment: Interpretive Data Percent cell count reference ranges are not reported, since discordance with absolute values may lead to misinterpretation of CBC data. Current Interpretive Data was last revised on 2017. Blood 06/07/2022 7:42 PM CDT 06/07/2022 8:25 PM CDT Catherine Adams MD LAB BLOOD ORDERABLES Final Result Performing Organization Address [facility] [place]/[facility] Co de Phone Number [facility] [place] [address] * (ABNORMAL) CBC with auto differential (06/07/2022 7:42 PM CDT) [facility] WBC 8.6 3.8 - 9.9 K/cumm [facility] Hgb 4.3(C) 13.0 - 17.5 g/dL [facility] Comment:Critical result call ed to and read back by LAVERN MORRISON RN on 06 07 2022 at 2036 to Janis Melton. Hct 12.3(L) 38.9 - 50.3 % [facility] Plt 233 150 - 400 K/cumm [facility] MPV 11.5 9.1 - 12.3 fL [facility] RBC 1.38(L) 4.30 - 5.80 M/cumm [facility] MCV 89.1 81.3 - 96.4 fL [facility] MCH 31.2 27.1 - 33.3 pg [facility] MCHC 35.0 32.3 - 35.7 g/dL [facility] RDW CV 13.3 11.1 - 14.9 % [facility] RDW SD 43.5 35.7 - 48.1 fL [facility] NRBC abs 0.00 0.00 - 0.01 K/cumm [facility] Blood 06/07/2022 7:42 PM CDT 06/07/2022 8:25 PM CDT Catherine Adams MD LAB BLOOD ORDERABLES Final Result Performing Organization Address [facility] [place]/[facility] Co de Phone Number [facility] [place] [address] * (ABNORMAL) Beta-hydroxybutyrate (06/07/2022 6:24 PM CDT) Beta-Hydroxybut yrate 2.3(H) 0.0 - 0.5 mmol/L [facility] Blood 06/07/2022 6:24 PM CDT 06/07/2022 6:42 PM CDT Catherine Adams MD LAB BLOOD ORDERABLES Final Result [facility] [place] [address] * (ABNORMAL) Differential, auto (06/07/2022 6:24 PM CDT) Pathologist [facility] Neutrophil abs 6.5 1.7 - 6.5 K/cumm [facility] Imm gran abs 0.2(H) 0.0 - 0.1 K/cumm [facility] Lymphocyte abs 0.4(L) 0.8 - 3.3 K/cumm [facility] Monocyte abs 0.3 0.2 - 0.8 K/cumm [facility] Eosinophil abs 0.0 0.0 - 0.5 K/cumm [facility] Basophil abs 0.0 0.0 - 0.1 K/cumm [facility] Neutrophil pct 88.3 % [facility] Comment: Interpretive Data Percent cell count reference ranges are not reported, since discordance with absolute values may lead to misinterpretation of CBC data. Current Interpretive Data was last revised on 2017. Imm gran pct 2.0 % [facility] Comment: Interpretive Data Percent cell count reference ranges are not reported, since discordance with absolute values may lead to misinterpretation of CBC data. Current Interpretive Data was last revised on 2017. Lymphocyte pct 5.3 % [facility] Comment: Interpretive Data Percent cell count reference ranges are not reported, since discordance with absolute values may lead to misinterpretation of CBC data. Current Interpretive Data was last revised on 2017. Monocyte pct 4.4 % [facility] Comment: Interpretive Data Percent cell count [...] MD LAB BLOOD ORDERABLES Final Result [facility] [place] [address] * Blood culture Blood Wrist, right (06/07/2022 [...] organism identification may be performed using the [employer] Gram-Positive Blood Culture Assay. This assay detects microbial DNA in positive blood culture broth via hybridization of target DNA to capture oligonucleotides on a microarray. This assay has been cleared by the [place] Food and Drug Administration and its performance characteristics have been verified by the [facility] Microbiology Laboratory. 5. ?For questions about this culture, contact the Microbiology Laboratory at [phone]. Interpretive data was last revised on 2020. Catherine Adams MD LAB MICROBIOLOGY - GENERAL ORDERABLES Final Result [facility] [place] [address] * Blood culture Blood Central venous catheter (06/07/2022 6:24 PM CDT) Report Final Report: No growth [facility] Blood (Central venous catheter) 06/07/2022 6:24 PM CDT 06/07/2022 6:50 PM CDT Luis [facility] - 06/12/2022 7:00 AM CDT 1. ?Blood [...] performance characteristics have been verified by the [facility] Microbiology Laboratory. 5. ?For questions about this culture, contact the Microbiology Laboratory at [phone]. Interpretive data was last revised on 2020. Catherine Adams MD LAB MICROBIOLOGY - GENERAL ORDERABLES Final Result [facility] [place] [address] * (ABNORMAL) CBC with auto differential (06/07/2022 6:24 PM CDT) WBC 7.3 3.8 - 9.9 K/cumm [facility] Hgb 7.8(L) 13.0 - 17.5 g/dL [facility] Hct 22.1(L) 38.9 - 50.3 % [facility] Plt 194 150 - 400 K/cumm [facility] MPV 11.2 9.1 - 12.3 fL [facility] RBC 2.52(L) 4.30 - 5.80 M/cumm [facility] MCV 87.7 81.3 - 96.4 fL [facility] MCH 31.0 27.1 - 33.3 pg [facility] MCHC 35.3 32.3 - 35.7 g/dL [facility] RDW CV 13.2 11.1 - 14.9 % [facility] RDW SD 42.8 35.7 - 48.1 fL [facility] NRBC abs 0.00 0.00 - 0.01 K/cumm [facility] Blood 06/07/2022 6:24 PM CDT 06/07/2022 6:37 PM CDT Catherine Adams MD LAB BLOOD ORDERABLES Final Result Performing Organization Address City/[facility]/ZIP Co de Phone Number [facility] [place] [address] * XR Chest 1 View (06/07/2022 6:20 [...] Impella device. There is an inferior approach [place]-Liv catheter with tip overlying the proximal right [...] Impella device. There is an inferior approach [place]Liv catheter with tip overlying the proximal right [...] CDT) pH, Art 7.46(H) 7.35 - 7.45 [facility] PCO2, Arterial 27(L) 35 - 45 mmHg [facility] PO2, Arterial 105 83 - 108 mmHg [facility] HCO3 Art (Calculated) 20 20 - 30 mmol/L [facility] BE, art -4 mmol/L [facility] Comment: Interpretive Data No Reference Range Established Current Interpretive Data was last revised on 2017 O2 Sat Art (Measured) 98(H) 90 - 95 % [facility] Blood 06/07/2022 5:20 PM CDT 06/07/2022 5:26 PM CDT Catherine Adams MD LAB BLOOD ORDERABLES Final Result [facility] [place] [address] * Critical result callback Cardio chemistry (06/07/2022 5:12 PM CDT) Date Notified [id number] [facility] Time Notified 1850 [facility] Test name Troponin [facility] Called/Read Back Anali [facility] Credentials MD [facility] Called By Usha [facility] Blood 06/07/2022 5:12 PM CDT 06/07/2022 6:10 PM CDT Catherine Adams MD LAB BLOOD ORDERABLES Final Result Performing Organization Address [facility] [place]/[facility] Co de Phone Number [facility] [place] [address] * (ABNORMAL) Troponin I high-sensitivity (06/07/2022 5:12 PM CDT) Pathologist [facility] Trop I hs 2,704(C) <=35 ng/L [facility] Comment: Interpretive Data For further hscTnI resources including the diagnostic algorithm and an aid in interpretation, copy and paste this link: [email or web address] Current Interpretive Data last revised 2020. Blood 06/07/2022 5:12 PM CDT 06/07/2022 5:29 PM CDT Catherine Adams MD LAB BLOOD ORDERABLES Final Result Performing Organization Address [facility] de Phone Number [facility] [place] [address] * Lactate (06/07/2022 5:12 PM CDT) [facility] Lactate 1.3 0.7 - 2.0 mmol/L [facility] Blood 06/07/2022 5:12 PM CDT 06/07/2022 5:22 PM CDT Catherine Adams MD LAB BLOOD ORDERABLES Final Result Performing Organization Address City/[facility] Co de Phone Number [facility] [place] [address] * (ABNORMAL) eGFR (06/07/2022 5:08 PM CDT) [facility] eGFR 5(L) 90 - 130 mL/min/1. 73 m2 [facility] Comment: Interpretive Data Reference Interval Normal [...] BLOOD ORDERABLES Ann Marie kramer Result [facility] [place] [address] * (ABNORMAL) Triglycerides (06/07/2022 5:08 PM CDT) Triglycerides 172(H) <=149 mg/dL [facility] Comment: Hemolyzed; result may be falsely elevated [...] BLOOD ORDERABLES Final Result Performing Organization Address City/State/[facility] Co de Phone Number [facility] [place] [address] * (ABNORMAL) Hemoglobin total, central venous (06/07/2022 5:08 PM CDT) Hemoglobin total, CV 8.2(L) 13.0 - 17.5 g/dL [facility] Blood 06/07/2022 5:08 PM CDT 06/07/2022 5:22 PM CDT Narrative [facility] - 06/07/2022 5:25 PM CDT If using Miley Cardiac Output Method Result [facility] Catherine Adams MD LAB BLOOD ORDERABLES Final Result Performing Organization Address City/[facility] Co de Phone Number [facility] [place] [address] * Methemoglobin, central venous (06/07/2022 5:08 PM CDT) Methemoglobin, CV 2.1 % [facility] Comment: Interpretive Data No reference range established. Current interpretive data was last revised 2019. Blood 06/07/2022 5:08 PM CDT 06/07/2022 5:22 PM CDT Narrative [facility] - 06/07/2022 5:25 PM CDT If using Miley Cardiac Output Method Result [facility] Catherine Adams MD LAB BLOOD ORDERABLES Final Result Performing Organization Address [facility] [place] [address] * Carboxyhemoglobin, central venous (06/07/2022 5:08 PM CDT) Carboxyhemoglobin , CV 1.0 % [facility] Comment: Interpretive Data No reference range established. Current interpretive data was last revised 2019. Blood 06/07/2022 5:08 PM CDT 06/07/2022 5:22 PM CDT Narrative [facility] - 06/07/2022 5:26 PM CDT If using Miley Cardiac Output Method Catherine Adams MD LAB BLOOD ORDERABLES Final Result Performing Organization Address [facility] [place] [address] * Oxyhemoglobin, central venous (06/07/2022 5:08 PM CDT) Oxyhemoglobin, CV 66.6 % [facility] Comment: Interpretive Data No reference range established. Current interpretive data was last revised 2019. Blood 06/07/2022 5:08 PM CDT 06/07/2022 5:22 PM CDT Narrative [facility] - 06/07/2022 5:25 PM CDT If using Miley Cardiac Output Method Catherine Adams MD LAB BLOOD ORDERABLES Final Result Performing Organization Address City/[facility] Co de Phone Number [facility] [place] [address] * (ABNORMAL) Phosphorus (06/07/2022 5:08 PM CDT) [facility] Phosphorus, pl 7.2(H) 2.3 - 4.5 mg/dL [facility] Comment:Hemolyzed; result ma y be falsely elevated Blood 06/07/2022 5:08 PM CDT 06/07/2022 5:33 PM CDT Conrad Weston Chi, MD LAB BLOOD ORDERABLES Ann Marie l Result Performing Organization Address [facility] de Phone Number [facility] [place] [address] * Magnesium (06/07/2022 5:08 PM CDT) [facility] Magnesium 2.2 1.4 - 2.5 mg/dL [facility] Blood 06/07/2022 5:08 PM CDT 06/07/2022 5:33 PM CDT Conrad Weston Chi, MD LAB BLOOD ORDERABLES Ann Marie l Result Performing Organization Address [facility] Co de Phone Number [facility] [place] [address] * (ABNORMAL) Comprehensive metabolic panel (06/07/2022 5:08 PM CDT) Sodium 129(L) 135 - 145 mmol/L [facility] Potassium, pl See Comment 3.3 - 4.9 mmol/L [facility] Comment:Credited; Hemolyzed Specimen Chloride 87(L) 97 - 110 mmol/L [facility] CO2 21(L) 22 - 32 mmol/L [facility] Anion gap 21(H) 2 - 15 mmol/L [facility] BUN 80(H) 8 - 25 mg/dL [facility] Creatinine 10.36(H) 0.80 - 1.30 mg/dL [facility] Glucose 329(H) 70 - 199 mg/dL [facility] Comment: Interpretive Data Fasting glucose >/= [...] 2017. Calcium 8.1(L) 8.5 - 10.3 mg/dL [facility] Bilirubin, total 0.8 0.1 - 1.2 mg/dL [facility] Protein, pl 6.0(L) 6.5 - 8.5 g/dL [facility] Albumin 2.5(L) 3.5 - 5.0 g/dL [facility] Alk phos 177(H) 40 - 130 Units/L [facility] Comment:Hemolyzed; result ma y be falsely decreased ALT See Comment 7 - 55 Units/L [facility] Comment:Credited; Hemolyzed Specimen AST See Comment 10 - 50 Units/L [facility] Comment:Credited; Hemolyzed Specimen Blood 06/07/2022 5:08 PM CDT 06/07/2022 5:33 PM CDT Conrad Weston Chi, MD LAB BLOOD ORDERABLES Ann Marie l Result Performing Organization Address [facility] Co de Phone Number [facility] [place] [address] * (ABNORMAL) POCT glucose (06/07/2022 5:00 PM CDT) Pathologist [facility] Glucose, POC 385(H) 70 - 199 mg/dL [facility] Glucose comment 1 Glu2: RN/MD Notified [facility] Blood 06/07/2022 5:00 PM CDT 06/07/2022 5:00 PM CDT Catherine Adams MD LAB POCT ORDERABLES - DEVIC E Final Result Performing Organization Address [facility] Co de Phone Number [facility] [place] [address] * ECG 12 lead (06/07/2022 4:59 PM CDT) [facility] Ventricular Rate EKG/Min 51 BPM [facility] Atrial Rate 51 BPM [facility] MI-Interval (MSEC) 212 ms [facility] QRS-Interval (MSEC) 130 ms [facility] QT-Interval (MSEC) 580 ms [facility] QTc 534 ms [facility] P [place] 69 degrees [facility] R [place] -38 degrees [facility] T [place] 95 degrees [facility] Diagnosis Sinus bradycardia with 1st degree A-V [...] BUSTOS M.D ([id number]) on 06/08/2022 9:42:26 AM [facility] 06/07/2022 4:59 PM CDT 06/08/2022 9:42 AM CDT us Catherine Adams MD ECG ORDERABLES Final Resul t [facility] * MARIELLA MAJOR CORONARY (06/07/2022 [...] be extremely high risk was transferred to [facility]. ?? He had hypoxemic respiratory arrest [...] ??Using ultrasound directed micropuncture technique a 7 Slovenian 45 cm sheath placed in the right femoral artery over an [place] wire. ?? Subsequently, an 8 [place]ian sheath inserted into the left femoral vein with placement of a [place]-Liv catheter with the pulmonary artery. ??Heparin was administered to maintain ACT of 300 seconds or greater. ??Angioplasty was performed with a 7 [place] EBU 3.5 guide catheter, 0.014 in spray pilot 50 wire in the circumflex and [...] artery sheath was exchanged for a 14 [place] Impella sheath. ??An Impella CP was placed into the left ventricle producing 3.2-3.4 liters/minute flow. ??The peel-away sheath was removed and the permanent sheath inserted. ??Two 6 [place]ian pro style were placed prior to sheath insertion with preserved sterilely. ?? Impella sheath was sewn in place as well as a [place]-Liv catheter. ?? Trialysis catheter was placed into [...] low range (06/07/2022 2:15 PM CDT) Pathologist [facility] ACT 226(H) 123 - 168 sec [facility] Blood 06/07/2022 2:15 PM CDT 06/07/2022 2:15 PM CDT Catherine Adams MD LAB POCT ORDERABLES - DEVIC E Final Result [facility] [place] [address] * (ABNORMAL) POC Blood Gas and Chemistries, Arterial - (06/07/2022 1:52 PM CDT) [facility] pH, Art POC 7.30(L) 7.35 - 7.45 [facility] pCO2, Art POC 42 35 - 45 mmHg [facility] pO2, Art POC 49(L) 83 - 108 mmHg [facility] Na, POC 132(L) 135 - 145 mmol/L [facility] K POC 4.1 3.3 - 4.9 mmol/L [facility] Comment: Interpretive Data This method is not able to assess for hemolysis, which may falsely increase potassium concentrations. If further testing is needed to evaluate this result, consider in-laboratory plasma potassium. Current Interpretive Data was last revised on 2022. Cl, POC 96(L) 97 - 110 mmol/L [facility] Ionized Ca, POC 4.62 4.50 - 5.10 mg/dL [facility] Glucose, POC 293(H) 70 - 199 mg/dL [facility] Lactate, POC 3.4(H) 0.7 - 2.2 mmol/L [facility] SO2 (uyen) arterial 78(L) 90 - 95 % [facility] Base excess, POC -5.5 mmol/L [facility] HCO3, Art POC 21 20 - 30 mmol/L [facility] Hct, POC 30.0(L) 41.4 - 51.6 % [facility] O2 Sat, Art POC (Calc) 80 % [facility] Total Hb, POC 9.9(L) 13.8 - 17.2 g/dL [facility] Blood 06/07/2022 1:52 PM CDT 06/07/2022 1:52 PM CDT Conrad Weston Chi, MD LAB POCT ORDERABLES - DEV ICE Final Result Performing Organization Address City/[facility]/ZIP Co de Phone Number [facility] [place] [address] * (ABNORMAL) POCT Activated clotting time, low range (06/07/2022 1:49 PM CDT) ACT 214(H) 123 - 168 sec [facility] Blood 06/07/2022 1:49 PM CDT 06/07/2022 1:49 PM CDT Catherine Adams MD LAB POCT ORDERABLES - DEVIC E Final Result Performing Organization Address City/[facility]/ZIP Co de Phone Number [facility] [place] [address] * (ABNORMAL) POC Blood Gas and Chemistries, Arterial - (06/07/2022 1:31 PM CDT) pH, Art POC 7.16(C) 7.35 - 7.45 [facility] pCO2, Art POC 53(H) 35 - 45 mmHg [facility] pO2, Art POC 41(L) 83 - 108 mmHg [facility] Na, POC 130(L) 135 - 145 mmol/L [facility] K POC 3.5 3.3 - 4.9 mmol/L [facility] Comment: Interpretive Data This method is not able to assess for hemolysis, which may falsely increase potassium concentrations. If further testing is needed to evaluate this result, consider in-laboratory plasma potassium. Current Interpretive Data was last revised on 2022. Cl, POC 93(L) 97 - 110 mmol/L [facility] Ionized Ca, POC 4.29(L) 4.50 - 5.10 mg/dL [facility] Glucose, POC 300(H) 70 - 199 mg/dL [facility] Lactate, POC 5.3(C) 0.7 - 2.2 mmol/L [facility] SO2 (uyen) arterial 59(C) 90 - 95 % [facility] Base excess, POC -10.1 mmol/L [facility] HCO3, Art POC 19(L) 20 - 30 mmol/L [facility] Hct, POC 31.0(L) 41.4 - 51.6 % [facility] O2 Sat, Art POC (Calc) 60 % [facility] Total Hb, POC 10.2(L) 13.8 - 17.2 g/dL [facility] Blood 06/07/2022 1:31 PM CDT 06/07/2022 1:31 PM CDT us Conrad Weston Chi, MD LAB POCT ORDERABLES - DEV ICE Final Result Performing Organization Address City/[facility]/ZIP Co de Phone Number [facility] [place] [address] * (ABNORMAL) POCT Activated clotting time, low range (06/07/2022 12:47 PM CDT) ACT 289(H) 123 - 168 sec [facility] Blood 06/07/2022 12:4 7 PM CDT 06/07/2022 12:47 PM CDT us Catherine Adams MD LAB POCT ORDERABLES - DEVIC E Final Result Performing Organization Address City/[facility]/ZIP Co de Phone Number [facility] [place] [address] * (ABNORMAL) POCT Activated clotting time, low range (06/07/2022 12:32 PM CDT) ACT 249(H) 123 - 168 sec [facility] Blood 06/07/2022 12:3 2 PM CDT 06/07/2022 12:32 PM CDT Catherine Adams MD LAB POCT ORDERABLES - DEVIC E Final Result Performing Organization Address City/[facility] Co de Phone Number [facility] [place] [address] * POCT glucose (06/07/2022 11:27 AM CDT) Pathologist [facility] Glucose, POC 179 70 - 199 mg/dL [facility] Blood 06/07/2022 11:2 7 AM CDT 06/07/2022 11:27 AM CDT us Conrad Weston Chi, MD LAB POCT ORDERABLES - DEV ICE Final Result Performing Organization Address [facility] de Phone Number [facility] [place] [address] * (ABNORMAL) aPTT (06/07/2022 9:59 AM CDT) [facility] aPTT 71(H) 27 - 37 sec [facility] Comment: Interpretive Data Therapeutic heparin range: 60.0 - 94.0 seconds. Based on correlation with therapeutic heparin activity range of 0.3-0.7 Units/mL. Current interpretive data was last revised on 2020. Blood 06/07/2022 9:59 AM CDT 06/07/2022 10:19 AM CDT Narrative [facility] - 06/07/2022 10:46 AM CDT Draw STAT [...] l Result Performing Organization Address [facility] Co de Phone Number [facility] [place] [place] [address] * (ABNORMAL) POCT glucose (06/07/2022 7:59 AM CDT) Glucose, POC 247(H) 70 - 199 mg/dL [facility] Blood 06/07/2022 7:59 AM CDT 06/07/2022 7:59 AM CDT Conrad Weston Chi, MD LAB POCT ORDERABLES - DEV ICE Final Result Performing Organization Address [facility] Co de Phone Number [facility] [place] [address] * (ABNORMAL) POCT glucose (06/07/2022 4:17 AM CDT) Glucose, POC 239(H) 70 - 199 mg/dL [facility] Blood 06/07/2022 4:17 AM CDT 06/07/2022 4:17 AM CDT Conrad Weston Chi, MD LAB POCT ORDERABLES - DEV ICE Final Result Performing Organization Address [facility] [place] [address] * (ABNORMAL) aPTT (06/07/2022 4:17 AM CDT) aPTT 57(H) 27 - 37 sec [facility] Comment: Interpretive Data Therapeutic heparin range: 60.0 - 94.0 seconds. Based on correlation with therapeutic heparin activity range of 0.3-0.7 Units/mL. Current interpretive data was last revised on 2020. Blood 06/07/2022 4:17 AM CDT 06/07/2022 4:37 AM CDT Narrative [facility] - 06/07/2022 5:01 AM CDT Draw STAT [...] l Result Performing Organization Address [facility] Co de Phone Number [facility] [place] [address] * POCT glucose (06/06/2022 11:51 PM CDT) Glucose, POC 170 70 - 199 mg/dL [facility] Blood 06/06/2022 11:5 1 PM CDT 06/06/2022 11:51 PM CDT Conrad Weston Chi, MD LAB POCT ORDERABLES - DEV ICE Final Result Performing Organization Address [facility] Co de Phone Number [facility] [place] [address] * POCT glucose (06/06/2022 8:18 PM CDT) Glucose, POC 123 70 - 199 mg/dL [facility] Blood 06/06/2022 8:18 PM CDT 06/06/2022 8:18 PM CDT Conrad Weston Chi, MD LAB POCT ORDERABLES - DEV ICE Final Result Performing Organization Address [facility] Co de Phone Number [facility] [place] [address] * (ABNORMAL) eGFR (06/06/2022 8:16 PM CDT) [...] LAB BLOOD ORDERABLES Ann Marie kramer Result [facility] [place] [address] * (ABNORMAL) Differential, auto (06/06/2022 8:16 PM CDT) Pathologist [facility] Neutrophil abs 9.8(H) 1.7 - 6.5 K/cumm [facility] Imm gran abs 0.2(H) 0.0 - 0.1 K/cumm [facility] Lymphocyte abs 0.7(L) 0.8 - 3.3 K/cumm [facility] Monocyte abs 0.9(H) 0.2 - 0.8 K/cumm [facility] Eosinophil abs 0.1 0.0 - 0.5 K/cumm [facility] Basophil abs 0.0 0.0 - 0.1 K/cumm [facility] Neutrophil pct 84.4 % [facility] Comment: Interpretive Data Percent cell count reference ranges are not reported, since discordance with absolute values may lead to misinterpretation of CBC data. Current Interpretive Data was last revised on 2017. Imm gran pct 1.3 % [facility] Comment: Interpretive Data Percent cell count reference ranges are not reported, since discordance with absolute values may lead to misinterpretation of CBC data. Current Interpretive Data was last revised on 2017. Lymphocyte pct 6.0 % [facility] Comment: Interpretive Data Percent cell count reference ranges are not reported, since discordance with absolute values may lead to misinterpretation of CBC data. Current Interpretive Data was last revised on 2017. Monocyte pct 7.6 % [facility] Comment: Interpretive Data Percent cell count reference ranges are not reported, since discordance with absolute values may lead to misinterpretation of CBC data. Current Interpretive Data was last revised on 2017. Eosinophil pct 0.5 % [facility] Comment: Interpretive Data Percent cell count reference ranges are not reported, since discordance with absolute values may lead to misinterpretation of CBC data. Current Interpretive Data was last revised on 2017. Basophil pct 0.2 % [facility] Comment: Interpretive Data Percent cell count reference ranges are not reported, since discordance with absolute values may lead to misinterpretation of CBC data. Current Interpretive Data was last revised on 2017. Blood 06/06/2022 8:16 PM CDT 06/06/2022 8:41 PM CDT Conrad Weston Chi, MD LAB BLOOD ORDERABLES Ann Marie l Result Performing Organization Address City/[facility]/ZIP Co de Phone Number [facility] [place], [place] [id number] * (ABNORMAL) Phosphorus (06/06/2022 8:16 PM CDT) [facility] Phosphorus, pl 6.6(H) 2.3 - 4.5 mg/dL [facility] Blood 06/06/2022 8:16 PM CDT 06/06/2022 8:41 PM CDT Conrad Weston Chi, MD LAB BLOOD ORDERABLES Ann Marie l Result Performing Organization Address [facility] Co de Phone Number [facility] [place] [address] * Magnesium (06/06/2022 8:16 PM CDT) [facility] Magnesium 2.1 1.4 - 2.5 mg/dL [facility] Blood 06/06/2022 8:16 PM CDT 06/06/2022 8:41 PM CDT Conrad Weston Chi, MD LAB BLOOD ORDERABLES Ann Marie l Result Performing Organization Address [facility] Co de Phone Number [facility] [place], [place] [id number] * (ABNORMAL) CBC with auto differential (06/06/2022 8:16 PM CDT) [facility] WBC 11.6(H) 3.8 - 9.9 K/cumm [facility] Hgb 9.3(L) 13.0 - 17.5 g/dL [facility] Hct 26.4(L) 38.9 - 50.3 % [facility] Plt 207 150 - 400 K/cumm [facility] MPV 11.1 9.1 - 12.3 fL [facility] RBC 2.99(L) 4.30 - 5.80 M/cumm [facility] MCV 88.3 81.3 - 96.4 fL [facility] MCH 31.1 27.1 - 33.3 pg [facility] MCHC 35.2 32.3 - 35.7 g/dL [facility] RDW CV 13.1 11.1 - 14.9 % [facility] RDW SD 42.2 35.7 - 48.1 fL [facility] NRBC abs 0.00 0.00 - 0.01 K/cumm [facility] Blood 06/06/2022 8:16 PM CDT 06/06/2022 8:41 PM CDT Conrad Weston Chi, MD LAB BLOOD ORDERABLES Ann Marie l Result [facility] [place] [address] * (ABNORMAL) Comprehensive metabolic panel (06/06/2022 8:16 PM CDT) Pathologist [facility] Sodium 132(L) 135 - 145 mmol/L [facility] Potassium, pl 3.4 3.3 - 4.9 mmol/L [facility] Chloride 89(L) 97 - 110 mmol/L [facility] CO2 25 22 - 32 mmol/L [facility] Anion gap 18(H) 2 - 15 mmol/L [facility] BUN 82(H) 8 - 25 mg/dL [facility] Creatinine 10.45(H) 0.80 - 1.30 mg/dL [facility] Glucose 112 70 - 199 mg/dL [facility] Comment: Interpretive Data Fasting glucose >/= [...] 2017. Calcium 7.5(L) 8.5 - 10.3 mg/dL [facility] Bilirubin, total 0.7 0.1 - 1.2 mg/dL [facility] Protein, pl 6.5 6.5 - 8.5 g/dL [facility] Albumin 3.2(L) 3.5 - 5.0 g/dL [facility] Alk phos 135(H) 40 - 130 Units/L [facility] ALT 40 7 - 55 Units/L [facility] AST 45 10 - 50 Units/L [facility] Blood 06/06/2022 8:16 PM CDT 06/06/2022 8:41 PM CDT Result [facility] Conrad Weston Chi, MD LAB BLOOD ORDERABLES Ann Marie l Result Performing Organization Address City/[facility]/ZIP Co de Phone Number [facility] [place] [address] * POCT glucose (06/06/2022 5:53 PM CDT) Glucose, POC 99 70 - 199 mg/dL [facility] Blood 06/06/2022 5:53 PM CDT 06/06/2022 5:53 PM CDT Result [facility] Conrad Weston Chi, MD LAB POCT ORDERABLES - DEV ICE Final Result [facility] [place] [address] * POCT glucose (06/06/2022 11:38 AM CDT) Glucose, POC 108 70 - 199 mg/dL [facility] Blood 06/06/2022 11:3 8 AM CDT 06/06/2022 11:38 AM CDT Conrad Weston Chi, MD LAB POCT ORDERABLES - DEV ICE Final Result Performing Organization Address [facility] Co de Phone Number [facility] [place] [address] * (ABNORMAL) aPTT (06/06/2022 10:26 AM CDT) aPTT 71(H) 27 - 37 sec [facility] Comment: Interpretive Data Therapeutic heparin range: 60.0 - 94.0 seconds. Based on correlation with therapeutic heparin activity range of 0.3-0.7 Units/mL. Current interpretive data was last revised on 2020. Blood 06/06/2022 10:2 6 AM CDT 06/06/2022 10:37 AM CDT Narrative [facility] - 06/06/2022 11:02 AM CDT Draw STAT [...] Organization Address [facility] de Phone Number [facility] [place] [address] * POCT glucose (06/06/2022 8:06 AM CDT) Glucose, POC 109 70 - 199 mg/dL [facility] Blood 06/06/2022 8:06 AM CDT 06/06/2022 8:06 AM CDT Conrad Weston Chi, MD LAB POCT ORDERABLES - DEV ICE Final Result Performing Organization Address [facility] Co de Phone Number [facility] [place] [address] * XR Chest 1 View (06/06/2022 4:45 [...] Glucose, POC 164 70 - 199 mg/dL [facility] Blood 06/06/2022 3:49 AM CDT 06/06/2022 3:49 AM CDT Conrad Weston Chi, MD LAB POCT ORDERABLES - DEV ICE Final Result Performing Organization Address [facility] Co de Phone Number [facility] [place] [address] * (ABNORMAL) aPTT (06/06/2022 3:41 AM CDT) aPTT 65(H) 27 - 37 sec [facility] Comment: Interpretive Data Therapeutic heparin range: 60.0 - 94.0 seconds. Based on correlation with therapeutic heparin activity range of 0.3-0.7 Units/mL. Current interpretive data was last revised on 2020. Blood 06/06/2022 3:41 AM CDT 06/06/2022 4:23 AM CDT Narrative [facility] - 06/06/2022 4:32 AM CDT Draw STAT [...] l Result Performing Organization Address [facility] Co de Phone Number [facility] [place] [address] * (ABNORMAL) Blood gas, arterial (06/06/2022 1:14 AM CDT) pH, Art 7.39 7.35 - 7.45 [facility] PCO2, Arterial 37 35 - 45 mmHg [facility] PO2, Arterial 169(H) 83 - 108 mmHg [facility] HCO3 Art (Calculated) 23 20 - 30 mmol/L [facility] BE, art -2 mmol/L [facility] Comment: Interpretive Data No Reference Range Established Current Interpretive Data was last revised on 2017 O2 Sat Art (Measured) 99(H) 90 - 95 % [facility] Blood 06/06/2022 1:14 AM CDT 06/06/2022 1:29 AM CDT Conrad Weston Chi, MD LAB BLOOD ORDERABLES Ann Marie l Result Performing Organization Address [facility] Co de Phone Number [facility] [place] [address] * POCT glucose (06/06/2022 12:01 AM CDT) Glucose, POC 192 70 - 199 mg/dL [facility] Blood 06/06/2022 12:0 1 AM CDT 06/06/2022 12:01 AM CDT Conrad Weston Chi, MD LAB POCT ORDERABLES - DEV ICE Final Result Performing Organization Address [facility] de Phone Number [facility] [place] [address] * XR Abdomen Ap 1 Vw (06/05/2022 11:30 PM CDT) Anatomical Region Laterality Modality Body, Abdomen N/A Computed Radiogr aphy 06/06/2022 9:30 AM CDT Impressions 06/06/2022 11:54 AM CDT A single view of the abdomen is submitted for evaluation. The pelvis is excluded from the [id number] and unavailable for interpretation. ??A rounded density [...] evaluation. The pelvis is excluded from the [id number] and unavailable for interpretation. A rounded density [...] * POCT glucose (06/05/2022 9:13 PM CDT) [facility] Glucose, POC 195 70 - 199 mg/dL [facility] Blood 06/05/2022 9:13 PM CDT 06/05/2022 9:13 PM CDT Conrad Weston Chi, MD LAB POCT ORDERABLES - DEV ICE Final Result [facility] [place] [address] * (ABNORMAL) eGFR (06/05/2022 8:47 PM CDT) [facility] eGFR 6(L) 90 - 130 mL/min/1. 73 m2 [facility] Comment: Interpretive Data Reference Interval Normal [...] MD PhD LAB BLOOD ORDERABLES Final Result [facility] [place] [address] * (ABNORMAL) Urinalysis, microscopic only (06/05/2022 8:47 PM CDT) WBC, ur 6-10(A) 0 - 5 /HPF [facility] RBC, ur >50(A) 0 - 2 /HPF [facility] Epithelial cells, squamous, ur 1-5 0 - 5 /HPF [facility] Epithelial cells, transitional, ur 1-5 0 - 0 /HPF [facility] Bacteria, ur 2+(A) [facility] Mucous, ur Present(A) [facility] Hyaline casts, ur 11-20(A) 0 - 10 /LPF [facility] Culture Reflex Comment Reflex conditions for urine culture (WBC >10) not met. [facility] Urine 06/05/2022 8:47 PM CDT 06/05/2022 9:32 PM CDT us Conrad Weston Chi, MD LAB URINE ORDERABLES Ann Marie kramer Result [facility] [place] [address] * (ABNORMAL) Differential, auto (06/05/2022 8:47 PM CDT) Neutrophil abs 7.7(H) 1.7 - 6.5 K/cumm [facility] Imm gran abs 0.1 0.0 - 0.1 K/cumm [facility] Lymphocyte abs 0.5(L) 0.8 - 3.3 K/cumm [facility] Monocyte abs 0.7 0.2 - 0.8 K/cumm [facility] Eosinophil abs 0.0 0.0 - 0.5 K/cumm [facility] Basophil abs 0.0 0.0 - 0.1 K/cumm [facility] Neutrophil pct 85.3 % [facility] Comment: Interpretive Data Percent cell count reference ranges are not reported, since discordance with absolute values may lead to misinterpretation of CBC data. Current Interpretive Data was last revised on 2017. Imm gran pct 1.3 % [facility] Comment: Interpretive Data Percent cell count reference ranges are not reported, since discordance with absolute values may lead to misinterpretation of CBC data. Current Interpretive Data was last revised on 2017. Lymphocyte pct 5.8 % [facility] Comment: Interpretive Data Percent cell count reference ranges are not reported, since discordance with absolute values may lead to misinterpretation of CBC data. Current Interpretive Data was last revised on 2017. Monocyte pct 7.5 % [facility] Comment: Interpretive Data Percent cell count reference ranges are not reported, since discordance with absolute values may lead to misinterpretation of CBC data. Current Interpretive Data was last revised on 2017. Eosinophil pct 0.0 % [facility] Comment: Interpretive Data Percent cell count reference ranges are not reported, since discordance with absolute values may lead to misinterpretation of CBC data. Current Interpretive Data was last revised on 2017. Basophil pct 0.1 % [facility] Comment: Interpretive Data Percent cell count reference ranges are not reported, since discordance with absolute values may lead to misinterpretation of CBC data. Current Interpretive Data was last revised on 2017. Blood 06/05/2022 8:47 PM CDT 06/05/2022 9:45 PM CDT Champ Osborne MD PhD LAB BLOOD ORDERABLES Final Result Performing Organization Address [facility] [place] Co de Phone Number [facility] [place] [address] * (ABNORMAL) Blood gas, arterial (06/05/2022 8:47 PM CDT) Pathologist [facility] pH, Art 7.38 7.35 - 7.45 [facility] PCO2, Arterial 37 35 - 45 mmHg [facility] PO2, Arterial 76(L) 83 - 108 mmHg [facility] HCO3 Art (Calculated) 22 20 - 30 mmol/L [facility] BE, art -3 mmol/L [facility] Comment: Interpretive Data No Reference Range Established Current Interpretive Data was last revised on 2017 O2 Sat Art (Measured) 94 90 - 95 % [facility] Blood 06/05/2022 8:47 PM CDT 06/05/2022 9:32 PM CDT Result [facility] Conrad Weston Chi, MD LAB BLOOD ORDERABLES Ann Marie l Result Performing Organization Address [facility] [place] Co de Phone Number [facility] [place] [address] * (ABNORMAL) Troponin I high-sensitivity (06/05/2022 8:47 PM CDT) Pathologist [facility] Trop I hs 3,996(C) <=35 ng/L [facility] Comment: Previous critical value noted within 48 hours ago. Interpretive Data For further hscTnI resources including the diagnostic algorithm and an aid in interpretation, copy and paste this link: https://bjhlab.testcatalog.org/show/hsTrop-1 Current Interpretive Data last revised 2020. Blood 06/05/2022 8:47 PM CDT 06/05/2022 9:47 PM CDT Conrad Weston Chi, MD LAB BLOOD ORDERABLES Ann Marie l Result Performing Organization Address [facility] [place]/ZIP Co de Phone Number [facility] [place] [address] * (ABNORMAL) Urinalysis reflex to microscopic and culture Urine (06/05/2022 8:47 PM CDT) Color, ur Yellow Yellow [facility] Clarity, ur Cloudy(A) Clear [facility] Specific gravity, ur 1.037(H) 1.003 - 1.030 [facility] pH, urine 6.0 [facility] Protein, ur ql 3+(A) Negative [facility] Glucose, ur ql 3+(A) Negative [facility] Ketones, ur Negative Negative [facility] Bilirubin, ur Negative Negative [facility] Blood, ur 3+(A) Negative [facility] Urobilinogen, ur <2.0 <2.0 mg/dL [facility] Nitrite, ur Negative Negative [facility] Leukocyte esterase, ur Negative Negative [facility] UA reflex comment Reflex to microscopic UA will be performed. [facility] Urine 06/05/2022 8:47 PM CDT 06/05/2022 8:47 [...] tendency for uric acid stone formation. Source: [employer]. Last revised 08-31-2017 Conrad Weston Chi, MD LAB MICROBIOLOGY - GENERA L ORDERABLES Final Result Performing Organization Address [facility] [place]/ZIP Co de Phone Number [facility] [place] [address] * (ABNORMAL) Phosphorus (06/05/2022 8:47 PM CDT) [facility] Phosphorus, pl 6.5(H) 2.3 - 4.5 mg/dL [facility] Blood 06/05/2022 8:47 PM CDT 06/05/2022 9:46 PM CDT Conrad Weston Chi, MD LAB BLOOD ORDERABLES Ann Marie l Result Performing Organization Address City/[facility]/ZIP Co de Phone Number [facility] [place] [address] * Magnesium (06/05/2022 8:47 PM CDT) [facility] Magnesium 1.9 1.4 - 2.5 mg/dL [facility] Blood 06/05/2022 8:47 PM CDT 06/05/2022 9:46 PM CDT Conrad Weston Chi, MD LAB BLOOD ORDERABLES Ann Marie l Result Performing Organization Address City/[facility]/ZIP Co de Phone Number [facility] [place] [address] * (ABNORMAL) CBC with auto differential (06/05/2022 8:47 PM CDT) [facility] WBC 9.1 3.8 - 9.9 K/cumm [facility] Hgb 9.3(L) 13.0 - 17.5 g/dL [facility] Hct 26.0(L) 38.9 - 50.3 % [facility] Plt 201 150 - 400 K/cumm [facility] MPV 11.3 9.1 - 12.3 fL [facility] RBC 2.95(L) 4.30 - 5.80 M/cumm [facility] MCV 88.1 81.3 - 96.4 fL [facility] MCH 31.5 27.1 - 33.3 pg [facility] MCHC 35.8(H) 32.3 - 35.7 g/dL [facility] RDW CV 12.6 11.1 - 14.9 % [facility] RDW SD 40.7 35.7 - 48.1 fL [facility] NRBC abs 0.00 0.00 - 0.01 K/cumm [facility] Blood 06/05/2022 8:47 PM CDT 06/05/2022 9:45 PM CDT us Conrad Weston Chi, MD LAB BLOOD ORDERABLES Ann Marie kramer Result [facility] [place] [address] * (ABNORMAL) Comprehensive metabolic panel (06/05/2022 8:47 PM CDT) Sodium 132(L) 135 - 145 mmol/L [facility] Potassium, pl 3.6 3.3 - 4.9 mmol/L [facility] Chloride 90(L) 97 - 110 mmol/L [facility] CO2 25 22 - 32 mmol/L [facility] Anion gap 17(H) 2 - 15 mmol/L [facility] BUN 84(H) 8 - 25 mg/dL [facility] Creatinine 9.77(H) 0.80 - 1.30 mg/dL [facility] Glucose 180 70 - 199 mg/dL [facility] Comment: Interpretive Data Fasting glucose >/= [...] 2017. Calcium 7.8(L) 8.5 - 10.3 mg/dL [facility] Bilirubin, total 0.6 0.1 - 1.2 mg/dL [facility] Protein, pl 6.3(L) 6.5 - 8.5 g/dL [facility] Albumin 3.4(L) 3.5 - 5.0 g/dL [facility] Alk phos 126 40 - 130 Units/L [facility] ALT 43 7 - 55 Units/L [facility] AST 46 10 - 50 Units/L [facility] Blood 06/05/2022 8:47 PM CDT 06/05/2022 9:46 PM CDT Conrad Weston Chi, MD LAB BLOOD ORDERABLES Ann Marie l Result Performing Organization Address [facility] [place] de Phone Number [facility] [place] [address] * Cell Differential, Body Fluid (06/05/2022 8:36 PM CDT) Total cells diffed 100 cells [facility] Comment: Interpretive Data Unless otherwise specified, the reference range and other method performance specifications have not been established for CSF/Body Fluid tests. ??The test results should be integrated into the clinical context for interpretation. Current interpretive data was last revised on 2019. Neutrophils, fld 4 % [facility] Lymphs, fld 9 % [facility] Monocyte, fld 68 % [facility] Macrophages, fld 18 % [facility] Mesothelial cells, fld 1 % [facility] Fluid 06/05/2022 8:36 PM CDT 06/05/2022 9:01 PM CDT Conrad Weston Chi, MD LAB BODY FLUIDS AND STOOL S ORDERABLES Final Result Performing Organization Address [facility] [place] Co de Phone Number [facility] [place] [address] * Aerobic and anaerobic culture and gram stain Peritoneal dialysis fluid Abdominal (06/05/2022 8:36 PM CDT) Direct Specimen Exam Stain: Cytospin Gram stain shows: No polymorphonuclear leukocytes seen. Other cellular material present. No organisms seen. [facility] Report Final Report: No growth [facility] Peritoneal dialysis fluid (Abdominal) 06/05/2022 8:36 PM CDT 06/05/2022 11:56 PM CDT Narrative [facility] - 06/11/2022 1:37 PM CDT Testing performed by [facility] ([phone]) Specimens submitted from normally sterile body sites [...] MICROBIOLOGY - GENERA L ORDERABLES Final Result [facility] [place] [address] * Cell count with reflex to differential, body fluid (06/05/2022 8:36 PM CDT) Specimen type, fld Peritoneal [facility] Color, fld Straw [facility] Clarity, fld Clear Clear [facility] Nucleated cells, fld 11 /cumm [facility] Comment: Interpretive Data Unless otherwise specified, the reference range and other method performance specifications have not been established for CSF/Body Fluid tests. ??The test results should be integrated into the clinical context for interpretation. Current interpretive data was last revised on 2019. RBC, fld 0 /cumm [facility] Fluid 06/05/2022 8:36 PM CDT 06/05/2022 9:01 PM CDT Conrad Weston Chi, MD LAB BODY FLUIDS AND STOOL S ORDERABLES Final Result Performing Organization Address [facility] [place] Co de Phone Number [facility] [place] [address] * Lipase (06/05/2022 6:39 PM CDT) Lipase 14 10 - 99 Units/L [facility] Blood 06/05/2022 6:39 PM CDT 06/05/2022 6:53 PM CDT Conrad Weston Chi, MD LAB BLOOD ORDERABLES Ann Marie l Result Performing Organization Address [facility] [place] [address] * (ABNORMAL) aPTT (06/05/2022 6:34 PM CDT) aPTT 38(H) 27 - 37 sec [facility] Comment: Interpretive Data Therapeutic heparin range: 60.0 - 94.0 seconds. Based on correlation with therapeutic heparin activity range of 0.3-0.7 Units/mL. Current interpretive data was last revised on 2020. Blood 06/05/2022 6:34 PM CDT 06/05/2022 6:40 PM CDT Conrad Weston Chi, MD LAB BLOOD ORDERABLES Ann Marie l Result Performing Organization Address [facility] [place] Co de Phone Number [facility] [place] [address] * US RUQ (06/05/2022 6:12 PM CDT) [...] POC 275(H) 70 - 199 mg/dL [facility] Blood 06/05/2022 5:07 PM CDT 06/05/2022 5:07 PM CDT Conrad Weston Chi, MD LAB POCT ORDERABLES - DEV ICE Final Result [facility] [place] [address] * Blood culture Blood Antecubital, left (06/05/2022 5:06 PM CDT) Report Final Report: No growth [facility] Blood (Antecubital, left) 06/05/2022 5:06 PM CDT 06/05/2022 5:21 PM CDT Narrative [facility] - 06/10/2022 7:01 AM CDT From a [...] organism identification may be performed using the [employer] Gram-Positive Blood Culture Assay. This assay detects microbial DNA in positive blood culture broth via hybridization of target DNA to capture oligonucleotides on a microarray. This assay has been cleared by the [place] Food and Drug Administration and its performance characteristics have been verified by the [facility]. 5. ?For questions about this culture, contact the Microbiology Laboratory at [phone]. Interpretive data was last revised on 2020. us Conrad Weston Chi, MD LAB MICROBIOLOGY - GENERA L ORDERABLES Final Result [facility] [place] [address] * Blood culture Blood Antecubital, right (06/05/2022 [...] organism identification may be performed using the [employer] Gram-Positive Blood Culture Assay. This assay detects microbial DNA in positive blood culture broth via hybridization of target DNA to capture oligonucleotides on a microarray. This assay has been cleared by the [place] Food and Drug Administration and its performance characteristics have been verified by the [facility]. 5. ?For questions about this culture, contact the Microbiology Laboratory at [phone]. Interpretive data was last revised on 2020. Conrad Weston Chi, MD LAB MICROBIOLOGY - GENERA L ORDERABLES Final Result Performing Organization Address City/[facility] Co de Phone Number [facility] [place] [address] * (ABNORMAL) Troponin I high-sensitivity (06/05/2022 4:07 PM CDT) [facility] Trop I hs 4,266(C) <=35 ng/L [facility] Comment: Previous critical value noted within 48 hours ago. Interpretive Data For further hscTnI resources including the diagnostic algorithm and an aid in interpretation, copy and paste this link: https://bjhlab.testcatalog.org/show/hsTrop-[email or web address] Current Interpretive Data last revised 2020. Blood 06/05/2022 4:07 PM CDT 06/05/2022 4:27 PM CDT Conrad Weston Chi, MD LAB BLOOD ORDERABLES Ann Marie l Result Performing Organization Address [facility] [place] Co de Phone Number [facility] [place] [address] * (ABNORMAL) eGFR (06/05/2022 3:54 PM CDT) Pathologist [facility] eGFR 6(L) 90 - 130 mL/min/1. 73 [...] PhD LAB BLOOD ORDERABLES Final Result [facility] [place] [address] * (ABNORMAL) Differential, auto (06/05/2022 3:54 PM CDT) [facility] Neutrophil abs 9.2(H) 1.7 - 6.5 K/cumm [facility] Imm gran abs 0.1 0.0 - 0.1 K/cumm [facility] Lymphocyte abs 0.6(L) 0.8 - 3.3 K/cumm [facility] Monocyte abs 0.8 0.2 - 0.8 K/cumm [facility] Eosinophil abs 0.0 0.0 - 0.5 K/cumm [facility] Basophil abs 0.0 0.0 - 0.1 K/cumm [facility] Neutrophil pct 86.0 % [facility] Comment: Interpretive Data Percent cell count reference ranges are not reported, since discordance with absolute values may lead to misinterpretation of CBC data. Current Interpretive Data was last revised on 2017. Imm gran pct 0.8 % [facility] Comment: Interpretive Data Percent cell count reference ranges are not reported, since discordance with absolute values may lead to misinterpretation of CBC data. Current Interpretive Data was last revised on 2017. Lymphocyte pct 5.6 % [facility] Comment: Interpretive Data Percent cell count reference ranges are not reported, since discordance with absolute values may lead to misinterpretation of CBC data. Current Interpretive Data was last revised on 2017. Monocyte pct 7.4 % [facility] Comment: Interpretive Data Percent cell count reference ranges are not reported, since discordance with absolute values may lead to misinterpretation of CBC data. Current Interpretive Data was last revised on 2017. Eosinophil pct 0.1 % [facility] Comment: Interpretive Data Percent cell count reference ranges are not reported, since discordance with absolute values may lead to misinterpretation of CBC data. Current Interpretive Data was last revised on 2017. Basophil pct 0.1 % [facility] Comment: Interpretive Data Percent cell count reference ranges are not reported, since discordance with absolute values may lead to misinterpretation of CBC data. Current Interpretive Data was last revised on 2017. Blood 06/05/2022 3:54 PM CDT 06/05/2022 4:27 PM CDT Champ Osborne MD PhD LAB BLOOD ORDERABLES Final Result Performing Organization Address City/State/[facility] Co de Phone Number [facility] [place] [address] * Type and screen (06/05/2022 3:54 PM CDT) ABO Rh A Positive [facility] Maribel, indirect Negative [facility] Blood 06/05/2022 3:54 PM CDT 06/05/2022 4:18 PM CDT Narrative [facility] - 06/05/2022 5:07 PM CDT Has the patient had Daratumumab or Isatuximab in the past 6 months?->Unknown Champ Osborne MD PhD LAB BLOOD BANK TEST ORDERA BLES Final Result Performing Organization Address [facility] [place] [address] * (ABNORMAL) aPTT (06/05/2022 3:54 PM CDT) aPTT 45(H) 27 - 37 sec [facility] Comment: Interpretive Data Therapeutic heparin range: 60.0 - 94.0 seconds. Based on correlation with therapeutic heparin activity range of 0.3-0.7 Units/mL. Current interpretive data was last revised on 2020. Blood (Blood, Venous) 06/05/2022 3:54 PM CDT 06/05/2022 4:16 PM CDT Champ Osborne MD PhD LAB BLOOD ORDERABLES Final Result Performing Organization Address [facility] [place] [place] [address] * Protime-INR (06/05/2022 3:54 PM CDT) PT 10.8 9.2 - 13.5 sec [facility] INR 1.0 0.9 - 1.2 [facility] Comment: Interpretive data Oral anticoagulant therapeutic ranges: Venous thromboembolism prophylaxis or treatment: 2.0-3.0 CARDIOLOGY Standard range: 2.0-3.0 High-intensity range: 2.5-3.5 Refer to indication-specific guidelines for appropriate target ranges for prosthetic heart valve replacement. Current interpretive data was last revised on 2019. Blood (Blood, Venous) 06/05/2022 3:54 PM CDT 06/05/2022 4:16 PM CDT us Champ Osborne MD PhD LAB BLOOD ORDERABLES Final Result [facility] [place] [address] * (ABNORMAL) CBC with auto differential (06/05/2022 3:54 PM CDT) WBC 10.7(H) 3.8 - 9.9 K/cumm [facility] Hgb 10.3(L) 13.0 - 17.5 g/dL [facility] Hct 29.1(L) 38.9 - 50.3 % [facility] Plt 238 150 - 400 K/cumm [facility] MPV 11.1 9.1 - 12.3 fL [facility] RBC 3.32(L) 4.30 - 5.80 M/cumm [facility] MCV 87.7 81.3 - 96.4 fL [facility] MCH 31.0 27.1 - 33.3 pg [facility] MCHC 35.4 32.3 - 35.7 g/dL [facility] RDW CV 12.5 11.1 - 14.9 % [facility] RDW SD 40.3 35.7 - 48.1 fL [facility] NRBC abs 0.00 0.00 - 0.01 K/cumm [facility] Blood 06/05/2022 3:54 PM CDT 06/05/2022 4:27 PM CDT Champ Osborne MD PhD LAB BLOOD ORDERABLES Final Result [facility] [place] [address] * Lactate (06/05/2022 3:54 PM CDT) [facility] Lactate 1.6 0.7 - 2.0 mmol/L [facility] Blood 06/05/2022 3:54 PM CDT 06/05/2022 4:27 PM CDT Champ Osborne MD PhD LAB BLOOD ORDERABLES Final Result Performing Organization Address [facility] [place]/[facility] de Phone Number [facility] [place] [address] * (ABNORMAL) Basic metabolic panel (06/05/2022 3:54 PM CDT) [facility] Sodium 132(L) 135 - 145 mmol/L [facility] Potassium, pl 4.1 3.3 - 4.9 mmol/L [facility] Chloride 87(L) 97 - 110 mmol/L [facility] CO2 26 22 - 32 mmol/L [facility] Anion gap 19(H) 2 - 15 mmol/L [facility] BUN 81(H) 8 - 25 mg/dL [facility] Creatinine 9.08(H) 0.80 - 1.30 mg/dL [facility] Glucose 276(H) 70 - 199 mg/dL [facility] Comment: Interpretive Data Fasting glucose >/= [...] 2017. Calcium 8.1(L) 8.5 - 10.3 mg/dL [facility] Blood 06/05/2022 3:54 PM CDT 06/05/2022 4:27 PM CDT us Champ Osborne MD PhD LAB BLOOD ORDERABLES Final Result Performing Organization Address [facility] [place] de Phone Number [facility] [place] [address] * (ABNORMAL) POCT glucose (06/05/2022 3:46 PM CDT) Glucose, POC 279(H) 70 - 199 mg/dL [facility] Blood 06/05/2022 3:46 PM CDT 06/05/2022 3:46 PM CDT us Conrad Weston Chi, MD LAB POCT ORDERABLES - DEV ICE Final Result Performing Organization Address [facility] [place] [facility] de Phone Number [facility] [place] [address] * (ABNORMAL) eGFR (06/05/2022 3:22 PM CDT) [facility] eGFR 6(L) 90 - 130 mL/min/1. 73 m2 [facility] Comment: Interpretive Data Reference Interval Normal [...] BLOOD ORDERABLES Final Result Performing Organization Address City/[facility]/ZIP Co de Phone Number [place] [place] [address] * (ABNORMAL) POCT [id number], WB - ISTAT (06/05/2022 3:22 PM CDT) Pathologist [facility] Na POC 126(L) 135 - 145 mmol/L [facility] K POC 3.6 3.3 - 4.9 mmol/L [facility] Comment: Interpretive Data This method is not able to assess for hemolysis, which may falsely increase potassium concentrations. If further testing is needed to evaluate this result, consider in-laboratory plasma potassium. Current Interpretive Data was last revised on 2022. Glucose POC i-STAT 287(H) 70 - 199 mg/dL [facility] Hct, POC 30.0(L) 38.9 - 50.3 % [facility] Blood 06/05/2022 3:22 PM CDT 06/05/2022 3:22 PM CDT us Champ Osborne MD PhD LAB POCT ORDERABLES - APRIL CE Final Result Performing Organization Address City/[facility]/ZIP Co de Phone Number [facility] [place] [place] [address] * Magnesium (06/05/2022 3:22 PM CDT) Pathologist [facility] Magnesium 2.1 1.4 - 2.5 mg/dL [facility] Blood 06/05/2022 3:22 PM CDT 06/05/2022 3:59 PM CDT Champ Osborne MD PhD LAB BLOOD ORDERABLES Final Result [facility] [place] [address] * (ABNORMAL) Basic metabolic panel (06/05/2022 3:22 PM CDT) [facility] Sodium 127(L) 135 - 145 mmol/L [facility] Potassium, pl 3.9 3.3 - 4.9 mmol/L [facility] Comment:Hemolyzed; Potassium value may be falsely elevated by as much as 0.3-0.5 mmol/L. Suggest redraw and reanalysis. Chloride 88(L) 97 - 110 mmol/L [facility] CO2 19(L) 22 - 32 mmol/L [facility] Anion gap 20(H) 2 - 15 mmol/L [facility] BUN 79(H) 8 - 25 mg/dL [facility] Creatinine 9.13(H) 0.80 - 1.30 mg/dL [facility] Glucose 294(H) 70 - 199 mg/dL [facility] Comment: Interpretive Data Fasting glucose >/= [...] 2017. Calcium 8.2(L) 8.5 - 10.3 mg/dL [facility] Blood 06/05/2022 3:22 PM CDT 06/05/2022 3:59 PM CDT us Champ Osborne MD PhD LAB BLOOD ORDERABLES Final Result Performing Organization Address [facility] Co de Phone Number [facility] [place] [address] * (ABNORMAL) Troponin I high-sensitivity (06/05/2022 3:21 PM CDT) Pathologist [facility] Trop I hs 4,261(C) <=35 ng/L [facility] Comment: Previous critical value noted within 48 hours ago. Interpretive Data For further hscTnI resources including the diagnostic algorithm and an aid in interpretation, copy and paste this link: [email or web address]/show/[email or web address] Current Interpretive Data last revised 2020. Blood 06/05/2022 3:21 PM CDT 06/05/2022 3:59 PM CDT us Champ Osborne MD PhD LAB BLOOD ORDERABLES Final Result Performing Organization Address [facility] Co de Phone Number [facility] [place] [address] * (ABNORMAL) Arterial Blood gas w/Lactate POCT (06/05/2022 3:17 PM CDT) [facility] Lactate POC i-STAT 2.0 0.7 - 2.2 mmol/L [facility] pH POC 7.38 7.35 - 7.45 [facility] pCO2, Art POC 37 35 - 45 mmHg [facility] PO2 POC 53(L) 80 - 105 mmHg [facility] CO2, total POC 23 20 - 30 mmol/L [facility] HCO3, POC 22 21 - 30 mmol/L [facility] BE POC -3(L) -2 - 3 mmol/L [facility] O2 sat POC 86(L) 95 - 98 % [facility] Blood 06/05/2022 3:17 PM CDT 06/05/2022 3:17 PM CDT us Champ Osborne MD PhD LAB BLOOD ORDERABLES Final Result ALESSANDRA [facility] [place] [address] * XR Chest 1 View (06/05/2022 3:15 [...] BPM [facility] Atrial Rate 73 BPM [facility] MI-Interval (MSEC) 184 ms [facility] QRS-Interval (MSEC) 106 ms [facility] QT-Interval (MSEC) 442 ms [facility] QTc 486 ms [facility] P [place] 49 degrees [facility] R [place] -33 degrees [facility] T [place] 87 degrees [facility] Diagnosis Normal sinus rhythm Left axis deviation QS in V1 and V2, a nonspecific finding with multiple causes, including lead misplacement or septal infarction in 20% Abnormal ECG Confirmed by JESS BUSTOS M.D ([id number]) on 06/07/2022 8:30:06 AM [facility] 06/05/2022 2:52 PM CDT 06/07/2022 8:30 AM CDT Champ Osborne MD PhD ECG ORDERABLES Final Resu lt Performing Organization Address City/[facility]/ZIP Co de Phone Number [facility] * (ABNORMAL) POCT glucose (06/05/2022 2:22 PM CDT) [facility] Glucose, POC 389(H) 70 - 199 mg/dL [facility] Blood 06/05/2022 2:22 PM CDT 06/05/2022 2:22 PM CDT Champ Osborne MD PhD LAB POCT ORDERABLES - APRIL CE Final Result Performing Organization Address [facility] Co de Phone Number [facility] Department [place] [address] * Respiratory pathogen panel Nasopharyngeal (06/05/2022 1:05 PM CDT) [facility] Influenza A RNA Not Detected Not Detected [facility] Influenza B RNA Not Detected Not Detected [facility] RSV RNA Not Detected Not Detected [facility] COVID-19 RNA Not Detected Not Detected [facility] Coronavirus 229E RNA Not Detected Not Detected [facility] Coronavirus HKU1 RNA Not Detected Not Detected [facility] Coronavirus NL63 RNA Not Detected Not Detected [facility] Coronavirus OC43 RNA Not Detected Not Detected [facility] Adenovirus DNA Not Detected Not Detected [facility] Metapneumovirus RNA Not Detected Not Detected [facility] Rhinovirus/Enterov irus RNA Not Detected Not Detected [facility] Parainfluenza 1 RNA Not Detected Not Detected [facility] Parainfluenza 2 RNA Not Detected Not Detected [facility] Parainfluenza 3 RNA Not Detected Not Detected [facility] Parainfluenza 4 RNA Not Detected Not Detected [facility] B. pertussis DNA Not Detected Not Detected [facility] B. parapertussis DNA Not Detected Not Detected [facility] C. pneumoniae DNA Not Detected Not Detected [facility] M. pneumoniae DNA Not Detected Not Detected [facility] Nasopharyngeal 06/05/2022 1: 05 PM CDT 06/05/2022 1:32 PM CDT Narrative CERNER [facility] - 06/05/2022 2:40 PM CDT Is the Patient experiencing symptoms consistent with COVID?->No Reason for testing?->Symptomatic Surveillance testing for transplant patient?->No ??Interpretive Data The writewith FilmArray Respiratory Panel (RP2.1) assay is a [...] assay has FDA clearance for testing of OPTICAL INSTRUMENT INSPECTOR swabs. ??The performance of additional specimen types has been assessed by the performing laboratory. ??The performance characteristics of this assay have been determined by [facility]. Current interpretive data was last revised on 22. Champ Osborne MD PhD LAB MICROBIOLOGY - GENERAL ORDERABLES Final Result Performing Organization Address City/[facility]/ZIP Co de Phone Number [facility] [place] [address] * Lactate (06/05/2022 12:10 PM CDT) Lactate 2.0 0.7 - 2.0 mmol/L [facility] Blood 06/05/2022 12:1 0 PM CDT 06/05/2022 12:39 PM CDT Champ Osborne MD PhD LAB BLOOD ORDERABLES Final Result [facility] [place] [address] * Beta-hydroxybutyrate (06/05/2022 12:10 PM CDT) Beta-Hydroxybut yrate <0.1 0.0 - 0.5 mmol/L [facility] Blood 06/05/2022 12:1 0 PM CDT 06/05/2022 12:34 PM CDT Champ Osborne MD PhD LAB BLOOD ORDERABLES Final Result Performing Organization Address [facility] Co de Phone Number [facility] [place] [address] * (ABNORMAL) POCT glucose (06/05/2022 11:23 AM CDT) Glucose, POC 402(H) 70 - 199 mg/dL [facility] Glucose comment 1 Glu2: RN/MD Notified [facility] Blood 06/05/2022 11:2 3 AM CDT 06/05/2022 11:23 AM CDT Champ Osborne MD PhD LAB POCT ORDERABLES - APRIL CE Final Result Performing Organization Address [facility] [place] [address] * aPTT (06/05/2022 11:04 AM CDT) aPTT 29 27 - 37 sec [facility] Comment: Interpretive Data Therapeutic heparin range: 60.0 - 94.0 seconds. Based on correlation with therapeutic heparin activity range of 0.3-0.7 Units/mL. Current interpretive data was last revised on 2020. Blood 06/05/2022 11:0 4 AM CDT 06/05/2022 12:39 PM CDT Champ Osborne MD PhD LAB BLOOD ORDERABLES Final Result Performing Organization Address City/[facility] Co de Phone Number [facility] [place] [address] * (ABNORMAL) POCT glucose (06/05/2022 10:07 AM CDT) Glucose, POC 403(H) 70 - 199 mg/dL [facility] Blood 06/05/2022 10:0 7 AM CDT 06/05/2022 10:07 AM CDT Champ Osborne MD PhD LAB POCT ORDERABLES - APRIL CE Final Result Performing Organization Address [facility] Co de Phone Number [facility] [place] [address] * (ABNORMAL) POCT glucose (06/05/2022 8:47 AM CDT) Glucose, POC 398(H) 70 - 199 mg/dL [facility] Blood 06/05/2022 8:47 AM CDT 06/05/2022 8:47 AM CDT Champ Osborne MD PhD LAB POCT ORDERABLES - APRIL CE Final Result Performing Organization Address [facility] Co de Phone Number [facility] [place] [address] * (ABNORMAL) POCT glucose (06/05/2022 8:45 AM CDT) Glucose, POC 458(C) 70 - 199 mg/dL [facility] Glucose comment 1 Glu2: RN/MD Notified [facility] Blood 06/05/2022 8:45 AM CDT 06/05/2022 8:45 AM CDT Champ Osborne MD PhD LAB POCT ORDERABLES - APRIL CE Final Result Performing Organization Address [facility] [place] [address] * (ABNORMAL) POCT glucose (06/05/2022 6:33 AM CDT) Glucose, POC 373(H) 70 - 199 mg/dL [facility] Blood 06/05/2022 6:33 AM CDT 06/05/2022 6:33 AM CDT us Champ Osborne MD PhD LAB POCT ORDERABLES - APRIL CE Final Result Performing Organization Address [facility] Co de Phone Number AL[facility]DRA [facility] [place] [address] * IR Outside Reference (06/05/2022 5:59 AM CDT) Impressions [email or web address] - 06/05/2022 5:59 AM CDT These images are for Reference purposes only and have not been reviewed by [facility] Radiology. ??There will be no report generated by a [facility] Radiologist. Narrative [email or web address] - 06/05/2022 5:59 AM CDT EXAMINATION: ??Images For Reference Purposes Only us Carrington Weber MD IMG IR PROCEDURES Final Result Performing Organization Address [facility] de Phone Number [email or web address] * XR Outside Reference (06/05/2022 5:57 AM CDT) Impressions [email or web address] - 06/05/2022 5:57 AM CDT These images are for Reference purposes only and have not been reviewed by [facility]. ??There will be no report generated by a [facility] Radiologist. Narrative [email or web address] - 06/05/2022 5:57 AM CDT EXAMINATION: ??Images For Reference Purposes Only us Carrington Weber MD IMG XR PROCEDURES Final Result Performing Organization Address [facility] Co de Phone Number [email or web address] * US Outside Reference (06/05/2022 5:56 AM CDT) Impressions [email or web address] - 06/05/2022 5:56 AM CDT These images are for Reference purposes only and have not been reviewed by [facility]. ??There will be no report generated by a [facility] Radiologist. Narrative [email or web address] - 06/05/2022 5:56 AM CDT EXAMINATION: ??Images For Reference Purposes Only Carrington Weber MD IMG US PROCEDURES Final Result Performing Organization Address City/[facility] Co de Phone Number [email or web address] * CT Body Outside Reference (06/05/2022 5:54 AM CDT) Impressions [email or web address] - 06/05/2022 5:54 AM CDT These images are for Reference purposes only and have not been reviewed by [facility] Radiology. ??There will be no report generated by a [facility] Radiologist. Narrative [facility] - 06/05/2022 5:54 AM CDT EXAMINATION: ??Images For Reference Purposes Only Carrington Weber MD IMG CT PROCEDURES Final Result Performing Organization Address [facility] de Phone Number [email or web address] * (ABNORMAL) Troponin I high-sensitivity 2-hour (06/05/2022 4:27 AM CDT) Trop I hs 4,555(C) <=35 ng/L [facility] Comment: Previous critical value noted within 48 hours ago. Interpretive Data For further hscTnI resources including the diagnostic algorithm and an aid in interpretation, copy and paste this link: https://bjhlab.testcatalog.org/show/[email or web address] Current Interpretive Data last revised 2020. Trop I hs pct delta -1 % [facility] Trop I hs interp Insignificant [facility] Blood 06/05/2022 4:2 7 AM CDT 06/05/2022 5:21 AM CDT Champ Osborne MD PhD LAB BLOOD ORDERABLES Final Result Performing Organization Address [facility] de Phone Number [facility] [place] [address] * (ABNORMAL) aPTT (06/05/2022 4:27 AM CDT) aPTT 23(L) 27 - 37 sec [facility] Comment: Interpretive Data Therapeutic heparin range: 60.0 - 94.0 seconds. Based on correlation with therapeutic heparin activity range of 0.3-0.7 Units/mL. Current interpretive data was last revised on 2020. Blood 06/05/2022 4:27 AM CDT 06/05/2022 5:50 AM CDT Narrative [facility] - 06/05/2022 6:00 AM CDT Baseline prior to heparin initiation Champ Osborne MD PhD LAB BLOOD ORDERABLES Final Result Performing Organization Address City/[facility] Co de Phone Number [facility] [place] [address] * Protime-INR (06/05/2022 4:27 AM CDT) [facility] PT 10.1 9.2 - 13.5 sec [facility] INR 0.9 0.9 - 1.2 [facility] Comment: Interpretive data Oral anticoagulant therapeutic ranges: Venous thromboembolism prophylaxis or treatment: 2.0-3.0 CARDIOLOGY Standard range: 2.0-3.0 High-intensity range: 2.5-3.5 Refer to indication-specific guidelines for appropriate target ranges for prosthetic heart valve replacement. Current interpretive data was last revised on 2019. Blood 06/05/2022 4:27 AM CDT 06/05/2022 5:50 AM CDT [facility] - 06/05/2022 6:00 AM CDT Baseline prior to heparin initiation Champ Osborne MD PhD LAB BLOOD ORDERABLES Final Result Performing Organization Address [facility] Co de Phone Number [place] [employer] [place] [address] * (ABNORMAL) Troponin I high-sensitivity series (baseline, 2hr, 4hr, 6hr) (06/05/2022 2:37 AM CDT) Pathologist [facility] Trop I hs 4,614(C) <=35 ng/L [facility] Comment: Previous critical value noted within 48 hours ago. Interpretive Data For further [facility] resources including the diagnostic algorithm and an aid in interpretation, copy and paste this link: https://[email or web address].testcatalog.org/show/[email or web address] Current Interpretive Data last revised 2020. Blood 06/05/2022 2:37 AM CDT 06/05/2022 3:30 AM CDT Champ Osborne MD PhD LAB BLOOD ORDERABLES Final Result Performing Organization Address City/[facility]/ZIP Co de Phone Number [facility] [place] [address] * POCT glucose (06/04/2022 11:04 PM CDT) [facility] Glucose, POC 191 70 - 199 mg/dL [facility] Blood 06/04/2022 11:0 4 PM CDT 06/04/2022 11:04 PM CDT us Champ Osborne MD PhD LAB POCT ORDERABLES - APRIL CE Final Result Performing Organization Address City/[facility]/ZIP Co de Phone Number [facility] [place] [address] * ECG 12 lead (06/04/2022 10:59 PM CDT) [facility] Ventricular Rate EKG/Min 47 BPM [facility] Atrial Rate 47 BPM [facility] MI-Interval (MSEC) 228 ms [facility] QRS-Interval (MSEC) 116 ms [facility] QT-Interval (MSEC) 532 ms [facility] QTc 470 ms [facility] P [place] 39 degrees [facility] R [place] -33 degrees [facility] T [place] 105 degrees [facility] Diagnosis Sinus bradycardia with 1st degree A-V block Left axis deviation Incomplete left bundle branch block Nonspecific ST and T wave abnormality Long QTc When compared with ECG of 23-MAR-2017 00:14, MI interval has increased QTc has increased Rate has decreased by 15 bpm Incomplete left bundle branch block is now Present Criteria for Septal infarct are not Present Confirmed by KENN BILLINGSLEY M.D ([id number]) on 06/06/2022 9:57:10 PM [facility] 06/04/2022 10:5 9 PM CDT 06/06/2022 9:57 PM CDT Catherine Adams MD ECG ORDERABLES Final Resul t Performing Organization Address City/[facility]/ZIP Co de Phone Number [facility] * (ABNORMAL) Hemoglobin A1c (06/04/2022 10:52 PM CDT) Hgb A1C 7.8(H) 4.0 - 5.6 % [facility] Estimated Average Glucose 177 mg/dL [facility] Comment: The ADA recommends reporting an estimated Average Glucose (eAG) with all Hemoglobin A1c results using the equation derived from a study of 507 normal and diabetic adults. ??Minority populations were underrepresented and children were not included. ?? (Diabetes Care 2020; 43(S1): S66-S76). ??The eAG is not equivalent to a fasting glucose. Blood 06/04/2022 10:5 2 PM CDT 06/05/2022 Result [facility] Champ Osborne MD PhD LAB BLOOD ORDERABLES Final Result Performing Organization Address City/[facility] Co de Phone Number [facility] [place] [address] * Beta-hydroxybutyrate (06/04/2022 10:52 PM CDT) Pathologist [facility] Beta-Hydroxybut yrate <0.1 0.0 - 0.5 mmol/L [facility] Blood 06/04/2022 10:5 2 PM CDT 06/05/2022 Champ Osborne MD PhD LAB BLOOD ORDERABLES Final Result ALESSANDRA CARRION [facility] [place] [address] * (ABNORMAL) Lipid panel (06/04/2022 10:52 PM [...] revised on 2018. HDL 34(L) >=40 mg/dL [facility] Comment: Interpretive Data Ages < or = [...] on 2018. LDL, calculated 82 <=129 mg/dL [facility] Comment: Interpretive Data Ages < or [...] on 2018. Non-HDL Cholesterol 115 mg/dL [facility] Comment: Interpretive Data Ages < [...] last revised on 2018. Chol/HDL ratio 4 [facility] Blood 06/04/2022 10:5 2 PM CDT 06/04/2022 11:56 PM CDT Champ Osborne MD PhD LAB BLOOD ORDERABLES Final Result Performing Organization Address [facility] Co de Phone Number [facility] [place] [employer] [address] * Critical result callback Cardio chemistry (06/04/2022 10:52 PM CDT) Date Notified [id number] [facility] Time Notified 99 [facility] Test name Trop [facility] Called/Read Back Denisse Connelly RN [facility] Credentials RN [facility] Called By dm [facility] Blood 06/04/2022 10:5 2 PM CDT 06/04/2022 11:56 PM CDT Catherine Adams MD LAB BLOOD ORDERABLES Final Result Performing Organization Address [facility] Co de Phone Number [facility] [place] [address] * (ABNORMAL) eGFR (06/04/2022 10:52 PM CDT) eGFR 6(L) 90 - 130 mL/min/1. 73 m2 [facility] Comment: Interpretive Data Reference Interval Normal [...] Adams MD LAB BLOOD ORDERABLES Final Result [facility] [place] [address] * Differential, auto (06/04/2022 10:52 PM CDT) Neutrophil abs 6.1 1.7 - 6.5 K/cumm [facility] Imm gran abs 0.1 0.0 - 0.1 K/cumm [facility] Lymphocyte abs 0.8 0.8 - 3.3 K/cumm [facility] Monocyte abs 0.8 0.2 - 0.8 K/cumm [facility] Eosinophil abs 0.0 0.0 - 0.5 K/cumm [facility] Basophil abs 0.0 0.0 - 0.1 K/cumm [facility] Neutrophil pct 79.1 % [facility] Comment: Interpretive Data Percent cell count reference ranges are not reported, since discordance with absolute values may lead to misinterpretation of CBC data. Current Interpretive Data was last revised on 2017. Imm gran pct 0.6 % [facility] Comment: Interpretive Data Percent cell count reference ranges are not reported, since discordance with absolute values may lead to misinterpretation of CBC data. Current Interpretive Data was last revised on 2017. Lymphocyte pct 10.1 % [facility] Comment: Interpretive Data Percent cell count reference ranges are not reported, since discordance with absolute values may lead to misinterpretation of CBC data. Current Interpretive Data was last revised on 2017. Monocyte pct 10.2 % [facility] Comment: Interpretive Data Percent cell count reference ranges are not reported, since discordance with absolute values may lead to misinterpretation of CBC data. Current Interpretive Data was last revised on 2017. Eosinophil pct 0.0 % [facility] Comment: Interpretive Data Percent cell count reference ranges are not reported, since discordance with absolute values may lead to misinterpretation of CBC data. Current Interpretive Data was last revised on 2017. Basophil pct 0.0 % [facility] Comment: Interpretive Data Percent cell count reference ranges are not reported, since discordance with absolute values may lead to misinterpretation of CBC data. Current Interpretive Data was last revised on 2017. Blood 06/04/2022 10:5 2 PM CDT 06/04/2022 11:56 PM CDT us Catherine Adams MD LAB BLOOD ORDERABLES Final Result [facility] [place] [address] * (ABNORMAL) Troponin I high-sensitivity (06/04/2022 10:52 PM CDT) Trop I hs 4,797(C) <=35 ng/L [facility] Comment: Interpretive Data For further hscTnI resources including the diagnostic algorithm and an aid in interpretation, copy and paste this link: https://[email or web address].testcatalog.org/show/[email or web address] Current Interpretive Data last revised 2020. Blood 06/04/2022 10:5 2 PM CDT 06/04/2022 11:56 PM CDT us Catherine Adams MD LAB BLOOD ORDERABLES Final Result [facility] [place] [address] * (ABNORMAL) Pro B-type natriuretic peptide (06/04/2022 [...] Adams MD LAB BLOOD ORDERABLES Final Result [facility] [place] [address] * (ABNORMAL) CBC with auto differential (06/04/2022 10:52 PM CDT) Pathologist [facility] WBC 7.7 3.8 - 9.9 K/cumm [facility] Hgb 9.5(L) 13.0 - 17.5 g/dL [facility] Hct 27.2(L) 38.9 - 50.3 % [facility] Plt 195 150 - 400 K/cumm [facility] MPV 11.3 9.1 - 12.3 fL [facility] RBC 3.10(L) 4.30 - 5.80 M/cumm [facility] MCV 87.7 81.3 - 96.4 fL [facility] MCH 30.6 27.1 - 33.3 pg [facility] MCHC 34.9 32.3 - 35.7 g/dL [facility] RDW CV 12.5 11.1 - 14.9 % [facility] RDW SD 40.2 35.7 - 48.1 fL [facility] NRBC abs 0.00 0.00 - 0.01 K/cumm [facility] Blood 06/04/2022 10:5 2 PM CDT 06/04/2022 11:56 PM CDT us Catherine Adams MD LAB BLOOD ORDERABLES Final Result [facility] [place] [address] * (ABNORMAL) Comprehensive metabolic panel (06/04/2022 10:52 PM CDT) Sodium 129(L) 135 - 145 mmol/L [facility] Potassium, pl 4.0 3.3 - 4.9 mmol/L [facility] Chloride 88(L) 97 - 110 mmol/L [facility] CO2 24 22 - 32 mmol/L [facility] Anion gap 17(H) 2 - 15 mmol/L [facility] BUN 82(H) 8 - 25 mg/dL [facility] Creatinine 8.95(H) 0.80 - 1.30 mg/dL [facility] Glucose 185 70 - 199 mg/dL [facility] Comment: Interpretive Data Fasting glucose >/= [...] Calcium 8.6 8.5 - 10.3 mg/dL [facility] Bilirubin, total 0.5 0.1 - 1.2 mg/dL [facility] Protein, pl 6.5 6.5 - 8.5 g/dL [facility] Albumin 3.6 3.5 - 5.0 g/dL [facility] Alk phos 115 40 - 130 Units/L [facility] ALT 37 7 - 55 Units/L [facility] AST 53(H) 10 - 50 Units/L [facility] Blood 06/04/2022 10:5 2 PM CDT 06/04/2022 11:56 PM CDT Catherine Adams MD LAB BLOOD ORDERABLES Final Result [facility] [place] [address] * XR Chest 1 View (06/04/2022 10:50 [...] Diagnosis Diagnosis unknown 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, unspecified vessel or [...] Coronary atherosclerosis of unspecified type of vessel, tonto apache or graft Unstable angina (CMS/HCC) (HCC) Intermediate [...] Mon06/22/22 at 1930 Given 06/27/2022 5:47 PM MANAGER GALLERY 1,000 mg albuterol HFA (PROVENTIL HFA,VENTOLIN HFA,PROAIR HFA) 90 mcg/actuation inhaler 2 puff 2 puff, inhalation, Every 6 hours PRN (incident response manager), wheezing, shortness of breath, Starting on Mon06/05/22 at 0229 Given 06/15/2022 2:50 AM CDT 2 puffs aspirin chewable tablet 81 mg 81 mg, oral, Daily, First dose (after last modification) on Gregoria 06/23/22 at 0900 Given 06/29/2022 8:23 AM MANAGER GALLERY 81 mg Given 06/28/2022 8:56 AM MANAGER GALLERY 81 mg Given 06/27/2022 8:17 AM MANAGER GALLERY 81 mg atorvastatin (LIPITOR) tablet 80 mg 80 mg, oral, Daily, First dose (after last modification) on Gregoria 06/23/22 at 0900 Given 06/29/2022 8:23 AM MANAGER GALLERY 80 mg Given 06/28/2022 8:56 AM MANAGER GALLERY 80 mg Given 06/27/2022 8:18 AM MANAGER GALLERY 80 mg calcitRIOL (ROCALTROL) capsule 0.25 mcg 0.25 mcg, oral, Daily, First dose on Mon06/22/22 at 1000 Given 06/29/2022 8:23 AM MANAGER GALLERY 0.25 mcg Given 06/28/2022 8:56 AM MANAGER GALLERY 0.25 mcg Given 06/27/2022 8:17 AM MANAGER GALLERY 0.25 mcg calcium acetate(phosphat bind) (PHOSLO) capsule 667 mg 667 mg, oral, 4 times daily, First dose on 06/05/22 at 0800, Take with food Given 06/29/2022 12:34 PM MANAGER GALLERY 667 mg Given 06/29/2022 8:23 AM MANAGER GALLERY 667 mg Given 06/28/2022 9:00 PM MANAGER GALLERY 667 mg clopidogreL (PLAVIX) tablet 75 mg 75 mg, oral, Daily, First dose (after last modification) on Gregoria 06/23/22 at 0900 Given 06/29/2022 8:23 AM MANAGER GALLERY 75 mg Given 06/28/2022 8:56 AM MANAGER GALLERY 75 mg Given 06/27/2022 8:18 AM MANAGER GALLERY 75 mg dextrose (D10W) 10% bolus 250 [...] 06/23/22 at 0900 Given 06/29/2022 8:23 AM MANAGER GALLERY 10 mg Given 06/28/2022 8:56 AM MANAGER GALLERY 10 mg Given 06/27/2022 8:18 AM MANAGER GALLERY 10 mg fentaNYL (SUBLIMAZE) preservative free injection [...] Infection ProphylaxisIndications:Infection Prophylaxis Given 06/28/2022 8:05 PM MANAGER GALLERY glucagon injection 1 mg 1 mg, intramuscular, [...] Vein Thrombosis Prevention Given 06/29/2022 12:34 PM MANAGER GALLERY 5,000 Units Left Lower Abdomen Given 06/29/2022 5:01 AM MANAGER GALLERY 5,000 Units L eft Lower Abdomen Given 06/28/2022 9:00 PM MANAGER GALLERY 5,000 Units L eft Upper Abdomen heparin [...] Self Administered Via Pump 06/29/2022 12:34 PM MANAGER GALLERY 8 Units Left Lower Abdomen Self Administered Via Pump 06/29/2022 8:27 AM MANAGER GALLERY 7 Units Left Lower Abdomen Self Administered Via Pump 06/28/2022 5:55 PM MANAGER GALLERY 4.3 Unit s Left Lower Abdomen ioversoL [...] otherwise manipulate tablet/capsule. Given 06/29/2022 8:22 AM MANAGER GALLERY 30 m g Given 06/28/2022 8:56 AM MANAGER GALLERY 30 mg Given 06/27/2022 8:18 AM MANAGER GALLERY 30 mg lidocaine (LIDODERM) 5 % patch 1 patch 1 patch, transdermal, Administer over 12 Hours, Daily PRN, 2nd line for pain, Starting on 06/05/22 at 0413, Do not cover the holes on the top side of the patch., Apply to affected area: back losartan (COZAAR) tablet 12.5 mg 12.5 mg, oral, Daily, First dose on 06/25/22 at 0900 Given 06/29/2022 8:22 AM MANAGER GALLERY 12.5 mg Given 06/28/2022 8:56 AM MANAGER GALLERY 12.5 mg Given 06/27/2022 8:17 AM MANAGER GALLERY 12.5 mg metoprolol tartrate (LOPRESSOR) immediate release tablet 25 mg 25 mg, oral, 2 times daily, First dose (after last modification) on 06/27/22 at 0900 Given 06/29/2022 8:22 AM MANAGER GALLERY 25 mg Given 06/28/2022 9:00 PM MANAGER GALLERY 25 mg Given 06/28/2022 8:56 AM MANAGER GALLERY 25 mg midazolam (VERSED) 1 mg/mL preservative [...] GI BleedIndications:GI Bleed Given 06/29/2022 8:22 AM MANAGER GALLERY 40 mg Given 06/28/2022 8:56 AM MANAGER GALLERY 40 mg Given 06/27/2022 8:18 AM MANAGER GALLERY 40 mg phenylephrine (JONN-SYNEPHRINE) 0.5 mg/5 mL [...] 06/16/22 at 2100 Given 06/29/2022 12:34 PM MANAGER GALLERY 1 drop Given 06/29/2022 8:22 AM MANAGER GALLERY 1 drop Given 06/28/2022 9:01 PM MANAGER GALLERY 1 drop ramelteon (ROZEREM) tablet 8 mg [...] Recently Administered Medications Times are shown in MANAGER GALLERY. Scheduled Medication Order 06/27/2022 06/28/2022 06/29/2022 aspirin [...] Provider: Manda Lake RN)1207 (Given - Provider: Madna Lake RN) isosorbide mononitrate ER (IMDUR) extended [...] Lake RN) 0856 (Given - Provider: Manda aLke, LUAN) 0822 (Given - Provider: Mnada Lake, LUAN) metoprolol tartrate (LOPRESSOR) immediate release tablet 25 mg 25 mg, oral, 2 times daily, First dose (after last modification) on Mon06/27/22 at 0900 0818 (Given - Provider: Manda aLke, LUAN)2150 (Given - Provider: Sasha Subramanian, RN) [...] 2 puff, inhalation, Every 6 hours PRN (incident response manager), wheezing, shortness of breath, Starting on Mon06/05/22 [...] Date First Orde red Date CASE REQUEST ENGINE ROOM OPERATOR 1 06/10/2022 ADT Patient Update Count Last Ordered Date Firs t Ordered Date PROVIDER TREATMENT TEAM 1 06/04/2022 documented in this encounter Additional Health Concerns Infection Onset Date Last Indicated Resolved Time COVID: Suspected 06/08/2022 06/08/2022 06/08/2022 10:14 PM CDT COVID: Suspected 06/15/2022 06/15/2022 06/15/2022 1:03 PM CDT documented as of this encounter Care Teams Wire Technician Relationship Specialty Start Date End Date Aditya Castro MD [address] [facility] [place] [address] PCP - General 10/17/19 documented as of this encounter
--- OUTSIDE RECORDS SUMMARY | 2024-09-07 23:42 | XMS_ITS | Encounter Summary ---
Author Organization [facility] Healthcare Address [address] [place] [address] Care Team Providers Care Inspector Shells Name Role Phone Aditya Castro MD Primary Care Provider [phone] Encounter Details Date Type Department Care Team (Late st Contact Info) Description 01/21/2021 8:30 AM CDT - 01/21/2021 10:00 AM CDT Surgery [facility] Cardiac Catheterization Lab [address] [place] [address] Hamlet Hubbard Jr., MD [address] [place] [id number] LEFT HEART CATHETERIZATION WITH CORONARY ANGIOGRAPHY AND WITH OR WITHOUT LEFT VENTRICULOGRAM [id number] Surgery Details Date/Time Status Location OR Service Patient Class Case Class Case Type Trauma Case? 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 [phone] Dr. Hubbard documented in this encounter Medications [...] ANGIOGRAPHY AND WITH OR WITHOUT LEFT VENTRICULOGRAM [id number] Source Note - Hamlet Hubbard Jr., MD [...] and your doctor have chosen [facility] for your surgery. We hope that [...] doctor. ?? Use no cologne, make-up, nail kyrgyz, lotions, oils or powders on your skin. [...] Glucose, POC 306(H) 70 - 199 mg/dL [facility] Blood specimen (specimen) 01/21/2021 11:22 AM CDT 01/21/2021 11:22 AM CDT Hamlet Hubbard Jr., MD LAB POCT ORDERABLES - D EVICE Final Result Performing Organization Address [facility] Co de Phone Number ALESSANDRA [address] [place] [address] * (ABNORMAL) POCT glucose (01/21/2021 10:10 AM CDT) Glucose, POC 242(H) 70 - 199 mg/dL [facility] Blood specimen (specimen) 01/21/2021 10:10 AM CDT 01/21/2021 10:10 AM CDT Hamlet Hubbard Jr., MD LAB POCT ORDERABLES - D EVICE Final Result Performing Organization Address [facility] de Phone Number [facility] [address] [place] [address] * LEFT HEART CATHETERIZATION WITH CORONARY ANGIOGRAPHY AND WITH AND WITHOUT LEFT VENTRICULOGRAM (01/21/2021 9:42 AM CDT) Anatomical Region Laterality Modality X-Ray Angiograph y 01/21/2021 Narrative 01/25/2021 10:30 AM CDT Avocado™ Job ID: [id number] Avocado™ Document ID: [id number] Dictated date/time: [id number] CATHETERIZATION REPORT PROCEDURE PERFORMED Left heart catheterization [...] placed in the left femoral artery. ??A 5-Australian #4 Kranthi left coronary catheter was advanced to left coronary ostium. ??Left arteriograms performed with normal projections. ??The catheter was removed and replaced with a 5-Australian #4 Kranthi right ?? coronary catheter which was advanced to right coronary ostium. ??Right coronary arteriograms were performed in multiple projections. ??This catheter was removed and exchanged for a 5-Australian pigtail catheter which was advanced to left [...] very pleasant gentleman. JOB ID/VF JOB ID: ??[id number] Hamlet Hubbard Jr., MD CV CARDIAC CATH PROCEDU RES Final Result * POCT glucose (01/21/2021 7:21 AM CDT) [facility] Signature Glucose, POC 191 70 - 199 mg/dL [facility] Blood specimen (specimen) 01/21/2021 7:21 AM CDT 01/21/2021 7:21 AM CDT Hamlet Hubbard Jr., MD LAB POCT ORDERABLES - D EVICE Final Result [facility] [address] [place] [address] * POCT glucose (01/21/2021 6:59 AM CDT) Glucose, POC 157 70 - 199 mg/dL [facility] Blood specimen (specimen) 01/21/2021 6:59 AM CDT 01/21/2021 6:59 AM CDT us Hamlet Hubbard Jr., MD LAB POCT ORDERABLES - D EVICE Final Result [facility] [address] [facility] Department [place] [address] * (ABNORMAL) Lipid panel (01/21/2021 6:34 AM CDT) Cholesterol 166 30 - 199 mg/dL [facility] Comment: Interpretive Data Ages < or = [...] revised on 2018. Non-HDL Cholesterol 133 mg/dL [facility] Comment: Interpretive Data Ages < or = [...] last revised on 2018. Chol/HDL ratio 5 [facility] Blood specimen (specimen) 01/21/2021 6:34 AM CDT 01/21/2021 6:38 AM CDT Hamlet Hubbard Jr., MD LAB BLOOD ORDERABLES Fi nal Result Performing Organization Address City/[facility]/ZIP Co de Phone Number [facility]PH[facility]RAH[facility] CON[facility] [address] [address] [place] [address] * (ABNORMAL) POCT glucose (01/21/2021 6:23 AM CDT) Glucose, POC 66(L) 70 - 199 mg/dL [facility] Blood specimen (specimen) 01/21/2021 6:23 AM CDT 01/21/2021 6:23 AM CDT Hamlet Hubbard Jr., MD LAB POCT ORDERABLES - D EVICE Final Result Performing Organization Address [facility] Co de Phone Number [facility] [address] [address] [place] [address] documented in this encounter Visit Diagnoses Diagnosis [...] 01/21/2021 documented in this encounter Care Teams Inspector Shells Relationship Specialty Start Date End Date Aditya Castro MD [address] [facility] [place] [address] PCP - General 10/17/19 documented as of this encounter
--- OUTSIDE RECORDS SUMMARY | 2024-09-07 23:42 | XMS_ITS | Encounter Summary ---
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
--- OUTSIDE RECORDS SUMMARY | 2024-09-07 23:42 | XMS_ITS | Encounter Summary ---
Author Organization [facility] Address [address] [facility] [address] [place] [address] Care Team Providers Care Director Of Dementia Operations Name Role Phone Aditya Castro MD Primary Care Provider [phone] Encounter Details Date Type Department Care Team (Late st Contact Info) Description 02/02/[address] 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
--- OUTSIDE RECORDS SUMMARY | 2024-09-07 23:42 | XMS_ITS | Encounter Summary ---
Author Organization [facility] Address [address] [address] Care Team Providers Care Almond Grinder Name Role Phone Aditya Castro MD Primary Care Provider [phone] Encounter Details Date Type Department Care Team (Late st Contact Info) Description 06/03/2022 Orders Only [facility] Cardiology [address] [facility] [address] [facility] [address] [place] [address] Abelardo Petit MD [address] [facility] [address] [facility] [address] [place] [address] Social History Tobacco Use Types [...] on file 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
--- OUTSIDE RECORDS SUMMARY | 2024-09-07 23:43 | XMS_ITS | Encounter Summary ---
Author Organization [facility] Healthcare Address [address] [place] [address] Care Team Providers Care Tap Out Operator Name Role Phone Jhonatan Bellamy MD Primary Care Provider [phone] Encounter Details Date Type Department Care Team (Latest Contact Info) Description 07/19/2017 6:30 PM PREPRESS TECHNICIAN - 07/19/2017 7:02 PM PREPRESS TECHNICIAN Hospital Encounter [facility] Narendra Hutchison Type 2 diabetes mellitus with hypoglycemia without coma (CMS/HCC); Heart failure (CMS/HCC); Other superintendent container terminal (current) drug therapy Social History Tobacco Use Types Packs/Day Years Used Date Smoking Tobacco: Never Smokeless Tobacco: Former Alcohol Use Standard Drinks/Week Comments No 0 (1 standard drink = 0.6 oz pur e alcohol) Sex and Gender Information Value Date Recorded Sex Assigned at Not on file Legal Sex Male 3:42 AM PREPRESS TECHNICIAN Gender Identity Not on file Sexual Orientation Not on file documented as of this encounter Last Filed Vital Signs Vital Sign Reading Time Taken Comments Blood Pressure 131/67 07/19/2017 6:31 PM PREPRESS TECHNICIAN Pulse 73 07/19/2017 6:31 PM PREPRESS TECHNICIAN Temperature 36.6 ??C (97.9 ??F) 07/19/2017 6:31 PM CS T Respiratory Rate - - Oxygen Saturation 97% 07/19/2017 6:31 PM PREPRESS TECHNICIAN Inhaled Oxygen Concentration - - Weight 112.9 kg (249 lb) 07/19/2017 6:31 PM PREPRESS TECHNICIAN Height - - Body Mass Index 35.73 07/19/2017 10:34 AM PREPRESS TECHNICIAN documented in this encounter Medications at Time of Discharge aspirin 81 mg enteric coated tabletIndications: Myocardial Reinfarction Prevention Take 1 tablet (81 mg total) by mouth daily 11/07/2013 nitroglycerin (NITROSTAT) 0.4 mg SL tabletIndications: Coronary artery disease involving algaaciq coronary artery of algaaciq heart, angina presence unspecified Place 1 tablet [...] Heart failure (HCC) Unspecified heart failure Other care home (current) drug therapy documented in this encounter Care Teams Tap Out Operator Relationship Specialty Start Date End Date Jhonatan Bellamy MD [address] [place] [address] PCP - General 03/25/15 04/16/18 documented as of this encounter
--- OUTSIDE RECORDS SUMMARY | 2024-09-07 23:43 | XMS_ITS | Encounter Summary ---
Author Organization [facility] Address [address] [place] [address] Phone Care Team Providers Care Special Machine Stitcher Name Role Phone Jhonatan Bellamy MD Primary Care Provider [phone] Encounter Details Date Type Department Care Team (Late st Contact Info) Description 04/03/2018 Telephone [facility] Rheumatology [address] [facility] 5[address] [place] [address] [place] [address] Evangelista Sifuentes LPN Social History Tobacco Use Types Packs/Day Years Used Date Smoking Tobacco: Never Smokeless Tobacco: Former Alcohol Use Standard Drinks/Week Comments No 0 (1 standard drink = 0.6 oz pur e alcohol) Sex and Gender Information Value Date Recorded Sex Assigned at Not on file 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 Was he able to get an appointment there? * Telephone Encounter - Evangelista Sifuentes LPN - 04/03/2018 11:12 AM CDT Hey, I spoke with this patient. He said he has been without his medications for 2 months. He has switched his insurance to [employer] which we don't accept (he is aware). We have sent a message to [facility] if we can get his medication approved. He said he has been having a lot of pain due to his lackof medication. documented in this encounter Plan of Treatment Not on file documented as of this encounter Visit Diagnoses Not on filedocumented in this encounter Care Teams Special Machine Stitcher Relationship Specialty Start Date End Date Jhonatan Bellamy MD [address] [place] [address] PCP - General 03/25/15 04/16/18 documented as of this encounter
--- OUTSIDE RECORDS SUMMARY | 2024-09-07 23:43 | XMS_ITS | Encounter Summary ---
Author Organization [facility] Address [address] [address] Care Team Providers Care Testing Lead Name Role Phone Jhonatan Bellamy MD Primary Care Provider [phone] Encounter Details Date Type Department Care Team (Late st Contact Info) Description 07/25/2017 Telephone [facility] [address] [address] Abelardo Petit MD [address] [facility] [address] [address] Social History Tobacco Use Types Packs/Day Years Used Date Smoking Tobacco: Never Smokeless Tobacco: Former Alcohol Use Standard Drinks/Week Comments No 0 (1 standard drink = 0.6 oz pur e alcohol) Sex and Gender Information Value Date Recorded Sex Assigned at Not on file Legal Sex Male 3:42 AM SKI TECHNICIAN Gender Identity Not on file Sexual Orientation Not on file documented as of this encounter Miscellaneous Notes * Telephone Encounter - Lisa Diaz RN - 07/25/2017 11:04 AM CST told pt that RTW note will be at the service desk manager for pickup. TECHNICIAN * Telephone Encounter - Constance Magana MA - 07/25/2017 10:40 AM SKI TECHNICIAN Pt calling about fitness for duty form, wants to come by and pick it up, and wants to know if he has any restrictions, pt can be reached at [phone] TECHNICIAN documented in this encounter Plan of Treatment Not on file documented as of this encounter Visit Diagnoses Not on filedocumented in this encounter Care Teams Testing Lead Relationship Specialty Start Date End Date Jhonatan Bellamy MD [address] [place], [place] [id number] PCP - General 03/25/15 04/16/18 documented as of this encounter
--- OUTSIDE RECORDS SUMMARY | 2024-09-07 23:43 | XMS_ITS | Encounter Summary ---
Author Organization [facility] Address [address] [address] Care Team Providers Care Outcome Analyst Name Role Phone Jhonatan Bellamy MD Primary Care Provider +1- [phone] Encounter Details Date Type Department Care Team (Late st Contact Info) Description 10/16/2017 Telephone [facility] [address] [address] Abelardo Petit MD 88[address] [facility] [address] [place] [address] Social History Tobacco Use Types Packs/Day Years Used Date Smoking Tobacco: Never Smokeless Tobacco: Former Alcohol Use Standard Drinks/Week Comments No 0 (1 standard drink = 0.6 oz pur e alcohol) Sex and Gender Information Value Date Recorded Sex Assigned at Not on file Legal 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 LION CUTTER documented in this encounter Plan of Treatment Not on file documented as of this encounter Visit Diagnoses Not on filedocumented in this encounter Care Teams Outcome Analyst Relationship Specialty Start Date End Date Jhonatan Bellamy MD [address] [place] [address] PCP - General 03/25/15 04/16/18 documented as of this encounter
--- OUTSIDE RECORDS SUMMARY | 2024-09-07 23:43 | XMS_ITS | Encounter Summary ---
Author Organization [facility] Address [address] [address] Care Team Providers Care Life Scientist Name Role Phone Jhonatan Bellamy MD Primary Care Provider +1- [phone] Encounter Details Date Type Department Care Team (Late st Contact Info) Description 06/12/2017 Telephone [facility] [address] [address] Abelardo Petit MD 6810 [facility] 162 [facility] [address] [place] [address] Social History Tobacco Use Types Packs/Day Years Used Date Smoking Tobacco: Never Smokeless Tobacco: Former Alcohol Use Standard Drinks/Week Comments No 0 (1 standard drink = 0.6 oz pur e alcohol) Sex and Gender Information Value Date Recorded Sex Assigned at Not on file 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
--- OUTSIDE RECORDS SUMMARY | 2024-09-07 23:43 | XMS_ITS | Encounter Summary ---
Author Organization [facility] Medical Group Address [address] [address] Care Team Providers Care Director Stars Name Role Phone Jhonatan Bellamy MD Primary Care Provider +1- [phone] Encounter Details Date Type Department Care Team (Late st Contact Info) Description 02/16/2018 Telephone [facility] [address] [address] Abelardo Petit MD 2326 [facility] [address] [address] Social History Tobacco Use Types Packs/Day Years Used Date Smoking Tobacco: Never Smokeless Tobacco: Former Alcohol Use Standard Drinks/Week Comments No 0 (1 standard drink = 0.6 oz pur e alcohol) Sex and Gender Information Value Date Recorded Sex Assigned at Not on file Legal Sex Male 3:42 AM URBAN RENEWAL MANAGER Gender Identity Not on file Sexual Orientation Not on file documented as of this encounter Miscellaneous Notes * Telephone Encounter - Chula Dodson MA - 02/16/2018 9:45 AM CDT ICD code given to Myrna at pharmacy. * Telephone Encounter - Amberly Rader - 02/16/2018 9:23 AM CDT Myrna from [facility] called for an ICD 10 code for plavix. [phone] documented in this encounter Plan of Treatment Not on file documented as of this encounter Visit Diagnoses Not on filedocumented in this encounter Care Teams Director Stars Relationship Specialty Start Date End Date Jhonatan Bellamy MD [address] [place], [place] [id number] PCP - General 03/25/15 04/16/18 documented as of this encounter
--- OUTSIDE RECORDS SUMMARY | 2024-09-07 23:43 | XMS_ITS | Encounter Summary ---
Author Organization [facility] Healthcare Address [address] [place] [address] Care Team Providers Care Assistant Account Manager Name Role Phone Jhonatan Bellamy MD Primary Care Provider +1- [phone] Encounter Details Date Type Department Care Team (Latest Contact Info) Description 09/19/2017 1:57 PM UNARMED SECURITY OFFICER - 09/19/2017 7:29 PM UNARMED SECURITY OFFICER Hospital Encounter [facility] Emergency Department [address] [place] [address] Refugio Nieves MD PhD [address] [facility] [address] [place] [address] Discharge Disposition: Discharge to home or self care Social History Tobacco Use Types Packs/Day Years Used Date Smoking Tobacco: Never Smokeless Tobacco: Former Alcohol Use Standard Drinks/Week Comments No 0 (1 standard drink = 0.6 oz pur e alcohol) Sex and Gender Information Value Date Recorded Sex Assigned at Not on file Legal Sex Male 3:42 AM UNARMED SECURITY OFFICER Gender Identity Not on file Sexual Orientation Not on file documented as of this encounter Medications at Time of Discharge aspirin 81 mg enteric coated tabletIndications: Myocardial Reinfarction Prevention Take 1 tablet (81 mg total) by mouth daily 11/07/2013 nitroglycerin (NITROSTAT) 0.4 mg SL tabletIndications: Coronary artery disease involving alutiiq coronary artery of alutiiq heart, angina presence unspecified Place 1 tablet [...] Comments GLUCOSE POC Routine 09/19/2017 4:06 PM UNARMED SECURITY OFFICER GLUCOSE POC Routine 09/19/2017 3:00 PM UNARMED SECURITY OFFICER DISCHARGE LABORATORY CUMULATIVE REPORT 09/19/2017 12:00 AM UNARMED SECURITY OFFICER documented in this encounter Results * (ABNORMAL) Glucose POC (09/19/2017 4:06 PM UNARMED SECURITY OFFICER) [facility] Glucose, POC 301(H) 70 - 199 mg/dL [facility] CO[facility] Comment: Interpretive Data Glucose is assumed to be non-fasting. Fasting Glucose reference ranges are: 0 - 150 years: ??70 mg/dL - 99 mg/dL Current interpretive data was last revised on 2014. Glucose comment 1 RN/MD Notified ALESSANDRA COLE Blood specimen (specimen) 09/19/2017 4:06 PM UNARMED SECURITY OFFICER 09/19/2017 4:06 PM UNARMED SECURITY OFFICER Narrative ALESSANDRA COLE - 09/19/2017 4:11 PM UNARMED SECURITY OFFICER us Refugio Nieves MD PhD POINT OF CARE TEST OR DERABLES Final Result [facility]DRA CARRIONW[facility] [address] [facility]. [place] [address] * (ABNORMAL) Glucose POC (09/19/2017 3:00 PM UNARMED SECURITY OFFICER) Glucose, POC 407(C) 70 - 199 mg/dL ALESSANDRA COLE Comment: Interpretive Data Glucose is assumed to be non-fasting. Fasting Glucose reference ranges are: 0 - 150 years: ??70 mg/dL - 99 mg/dL Current interpretive data was last revised on 2014. Glucose comment 1 RN/MD Notified ALESSANDRA COLE Blood specimen (specimen) 09/19/2017 3:00 PM UNARMED SECURITY OFFICER 09/19/2017 3:00 PM UNARMED SECURITY OFFICER Narrative ALESSANDRA KELSEY - 09/19/2017 3:01 PM UNARMED SECURITY OFFICER us Refugio Nieves MD PhD POINT OF CARE TEST OR DERABLES Final Result [facility]DRA CARRIONW[facility] [address] [facility]. Department [place] [address] * DISCHARGE LABORATORY CUMULATIVE REPORT (09/19/2017 12:00 AM UNARMED SECURITY OFFICER) Narrative 09/19/2017 12:00 AM UNARMED SECURITY OFFICER Ordered by an unspecified provider. us Historical Provider LAB BLOOD ORDERABLES Ann Marie l Result documented in this encounter Visit Diagnoses Not on filedocumented in this encounter Care Teams Assistant Account Manager Relationship Specialty Start Date End Date Jhonatan Bellamy MD [address] [facility] [address] [address] [place], [place] [address] PCP - General 03/25/15 04/16/18 documented as of this encounter
--- OUTSIDE RECORDS SUMMARY | 2024-09-07 23:43 | XMS_ITS | Encounter Summary ---
Author Organization [facility] Address [address] [place] [address] Phone Care Team Providers Care Powerhouse Mechanic Apprentice Name Role Phone Jhonatan Bellamy MD Primary Care Provider +1- [phone] Encounter Details Date Type Department Care Team (Late st Contact Info) Description 03/22/2018 Telephone [facility] Rheumatology 4921 [facility] Advanced Medicine 5th [place] [address] [place] [address] Alexis Gonzalez RMA Social History Tobacco Use Types Packs/Day Years Used Date Smoking Tobacco: Never Smokeless Tobacco: Former Alcohol Use Standard Drinks/Week Comments No 0 (1 standard drink = 0.6 oz pur e alcohol) Sex and Gender Information Value Date Recorded Sex Assigned at Not on file Legal Sex Male 3:42 AM REED WORKER Gender Identity Not on file Sexual [...] on filedocumented in this encounter Care Teams Powerhouse Mechanic Apprentice Relationship Specialty Start Date End Date Jhonatan Bellamy MD [address] [place] [address] PCP - General 03/25/15 04/16/18 documented as of this encounter
--- OUTSIDE RECORDS SUMMARY | 2024-09-07 23:43 | XMS_ITS | Encounter Summary ---
Author Organization [facility] Healthcare Address [address] [place] [address] Care Team Providers Care Flag Signalman Name Role Phone Aditya Castro MD Primary Care Provider [phone] Encounter Details Date Type Department Care Team (Latest Contact Info) Description 10/23/2019 9:45 AM DEPUTY SHERIFF CHIEF - 10/23/2019 3:32 PM DEPUTY SHERIFF CHIEF Hospital Encounter [facility] Saulo Dockery MD [address] [place] [address] Discharge Disposition: Discharge to home or self care Social History Tobacco Use Types Packs/Day Years Used Date Smoking Tobacco: Never Smokeless Tobacco: Former Alcohol Use Standard Drinks/Week Comments No 0 (1 standard drink = 0.6 oz pur e alcohol) Sex and Gender Information Value Date Recorded Sex Assigned at Not on file Legal Sex Male 3:42 AM DEPUTY SHERIFF CHIEF Gender Identity Not on file Sexual Orientation Not on file documented as of this encounter Last Filed Vital Signs Vital Sign Reading Time Taken Comments Blood Pressure 159/70 10/23/2019 9:54 AM DEPUTY SHERIFF CHIEF Pulse 55 10/23/2019 9:54 AM DEPUTY SHERIFF CHIEF Temperature 36.6 ??C (97.8 ??F) 10/23/2019 9:54 AM CS T Respiratory Rate - - Oxygen Saturation 96% 10/23/2019 9:54 AM DEPUTY SHERIFF CHIEF Inhaled Oxygen Concentration - - Weight 121.3 kg (267 lb 8 oz) 10/23/2019 9:54 AM DEPUTY SHERIFF CHIEF Height 177.8 cm (5' 10 ) 10/23/2019 9:54 AM DEPUTY SHERIFF CHIEF Body Mass Index 38.38 10/23/2019 9:54 AM DEPUTY SHERIFF CHIEF documented in this encounter Medications at Time [...] on filedocumented in this encounter Care Teams Flag Signalman Relationship Specialty Start Date End Date Aditya Castro MD 9 [facility] [place] [address] PCP - General 10/17/19 documented as of this encounter
--- OUTSIDE RECORDS SUMMARY | 2024-09-07 23:43 | XMS_ITS | Encounter Summary ---
Author Organization [facility] Healthcare Address [address] [place] [address] Care Team Providers Care Stone Rigger Name Role Phone Aditya Castro MD Primary Care Provider [phone] Encounter Details Date Type Department Care Team (Late st Contact Info) Description 10/17/2019 9:05 AM HOME CARE ATTENDANT Hospital Encounter [facility] Saulo Dockery MD [address] [address] Social History Tobacco Use Types Packs/Day Years Used Date Smoking Tobacco: Never Smokeless Tobacco: Former Alcohol Use Standard Drinks/Week Comments No 0 (1 standard drink = 0.6 oz pur e alcohol) Sex and Gender Information Value Date Recorded Sex Assigned at Not on file Legal Sex Male 3:42 AM HOME CARE ATTENDANT Gender Identity Not on file Sexual [...] BASIC METABOLIC PANEL Routine 10/17/2019 10:42 AM HOME CARE ATTENDANT XR CHEST PA LATERAL 2 VIEWS 10/17/2019 12:00 AM HOME CARE ATTENDANT documented in this encounter Results * (ABNORMAL) Basic metabolic panel (10/17/2019 10:42 AM HOME CARE ATTENDANT) Sodium 140 135 - 145 mmol/L [facility] Potassium 4.5 3.3 - 5.1 mmol/L [facility] Chloride 101 96 - 108 mmol/L [facility] Carbon Dioxide 25 22 - 32 mmol/L [facility] Anion Gap 14 7 - 16 [facility] Glucose 189(H) 70 - 100 mg/dL [facility] BUN 94(H) 8 - 25 mg/dL [facility] Creatinine 4.7(H) 0.5 - 1.3 mg/dL [facility] Comment: NOTE: Estimated GFR (Cockroft-Gault) will NOT be calculated unless patient Height and Weight were entered. Also, Kidney Disease Stage (GFR) and Estimated GFR (Cockroft-Gault) will NOT be calculated if Creatinine result is <0.2. Kidney Disease Stage <15 mL/MIN [facility] Comment: NOTE; ??The GFR is an [...] dialysis Calcium 9.1 8.6 - 10.3 mg/dL [facility] 10/17/2019 10:4 2 AM HOME CARE ATTENDANT 10/17/2019 10:55 AM HOME CARE ATTENDANT Narrative Resulting Agency Comment CLI us Lorne Mustafa MD LAB BLOOD ORDERABLES Final Re sult [place] [id number] [place] [address], [facility] [phone] * XR Chest Pa Lateral 2 Views (10/17/2019 12:00 AM HOME CARE ATTENDANT) Anatomical Region Laterality Modality Body, Chest N/A Radiographic Toma ging 10/17/2019 4:10 PM HOME CARE ATTENDANT Narrative 10/17/2019 4:11 PM HOME CARE ATTENDANT Patient Name: JUVENAL GARVIN JR ?Ordering Dr: Lorne Mustafa MD ?? D.O.B: 1970 ? Exam Date: 10/17/ ?? 0000 ?? Age: 49 ?Sex: Male ? MR#: [id number] ?? Loc: ? RADIOLOGY REPORT ?? Order #[id number] ?? Radiology ? Chest 2 Views ? [...] T: ??10/17/2019 4:11 PM ? Report ID: [id number] ?? Reading Location: ??[id number] ? REPORT ELECTRONICALLY SIGNED IN OTHER VENDOR SYSTEM ?? Resulting Agency Comment O Procedure Note Cherelle Berrios MD - 10/17/2019 Patient Name: JUVENAL GARVIN Dr: Lorne Mustafa MD D.O.B: 1970 Exam Date: 10/17/19 0000 Age: 49 Sex: Male MR#: [id number] Loc: RADIOLOGY REPORT Order #[id number] Radiology Chest 2 Views Signed EXAM DESCRIPTION: [...] Cherelle Berrios M.D. TB: TB Report ID: [id number] Reading Location: [place] [address] REPORT ELECTRONICALLY SIGNED IN OTHER VENDOR SYSTEM us Lorne Mustafa MD IMG XR PROCEDURES Final Resul t documented in this encounter Visit Diagnoses Not on filedocumented in this encounter Care Teams Stone Rigger Relationship Specialty Start Date End Date Aditya Castro MD [address] [place] [address] [place] [address] PCP - General 10/17/19 documented as of this encounter
--- OUTSIDE RECORDS SUMMARY | 2024-09-07 23:43 | XMS_ITS | Encounter Summary ---
Author Organization [facility] Address [address] [address] Care Team Providers Care Greenhouse Assistant Name Role Phone Jhonatan Bellamy MD Primary Care Provider [phone]- [phone] Encounter Details Date Type Department Care Team (Late st Contact Info) Description 07/17/2017 Telephone [facility] [address] [address] Abelardo Petit MD 6810 [facility] [address] [address] Social History Tobacco Use Types Packs/Day Years Used Date Smoking Tobacco: Never Smokeless Tobacco: Former Alcohol Use Standard Drinks/Week Comments No 0 (1 standard drink = 0.6 oz pur e alcohol) Sex and Gender Information Value Date Recorded Sex Assigned at Not on file Legal Sex Male 3:42 AM VIDEO COORDINATOR Gender Identity Not on file Sexual Orientation Not on file documented as of this encounter Miscellaneous Notes * Telephone Encounter - Lisa Diaz RN - 07/17/2017 1:13 PM CST Pt igor that his STD paperwork was not received. Told him, I will refax it . O COORDINATOR documented in this encounter Plan of Treatment Not on file documented as of this encounter Visit Diagnoses Not on filedocumented in this encounter Care Teams Greenhouse Assistant Relationship Specialty Start Date End Date Jhonatan Bellamy MD [address] [place] [address] PCP - General 03/25/15 04/16/18 documented as of this encounter
--- OUTSIDE RECORDS SUMMARY | 2024-09-07 23:43 | XMS_ITS | Encounter Summary ---
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 He underwent catheterization in 5 of was found to have high-grade stenosis in the distal right coronary artery bridging over the origin of the solution designer lateral branch. 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
--- OUTSIDE RECORDS SUMMARY | 2024-09-07 23:43 | XMS_ITS | Encounter Summary ---
Author Organization [facility] Medical Group Address [address] [address] Care Team Providers Care Manager Information Name Role Phone Jhonatan Bellamy MD Primary Care Provider +1- [phone] Encounter Details Date Type Department Care Team (Late st Contact Info) Description 05/05/2017 Telephone [facility] [address] [address] Abelardo Petit MD 6810 [facility] [address] [address] Social History Tobacco Use Types Packs/Day Years Used Date Smoking Tobacco: Never Smokeless Tobacco: Former Alcohol Use Standard Drinks/Week Comments No 0 (1 standard drink = 0.6 oz pur e alcohol) Sex and Gender Information Value Date Recorded Sex Assigned at Not on file Legal Sex Male 3:42 AM DYNAMOMETER REPAIRER Gender Identity Not on file Sexual [...] as of this encounter Care Teams Manager Information Relationship Specialty Start Date End Date Jhonatan Bellamy MD [address] [place] [address] PCP - General 03/25/15 04/16/18 documented as of this encounter
--- OUTSIDE RECORDS SUMMARY | 2024-09-07 23:43 | XMS_ITS | Encounter Summary ---
Author Organization [facility] Address [address] [place] [address] Phone Care Team Providers Care Technical Support 1 Software Engineer Name Role Phone Jhonatan Bellaym MD Primary Care Provider +1- [phone] Encounter Details Date Type Department Care Team (Late st Contact Info) Description 03/15/2018 Telephone [facility] Rheumatology [facility] Advanced Medicine 5th [place] [address] [place] [address] Alexis Gonzalez RMA Social History Tobacco Use Types Packs/Day Years Used Date Smoking Tobacco: Never Smokeless Tobacco: Former Alcohol Use Standard Drinks/Week Comments No 0 (1 standard drink = 0.6 oz pur e alcohol) Sex and Gender Information Value Date Recorded Sex Assigned at Not on file Legal Sex Male 3:42 AM CLINICAL NURSE OCCUPATIONAL MEDICINE Gender Identity Not on file Sexual [...] filedocumented in this encounter Care Teams Technical Support 1 Software Engineer Relationship Specialty Start Date End Date Jhonatan Bellamy MD [address] [place] [address] PCP - General 03/25/15 04/16/18 documented as of this encounter
--- OUTSIDE RECORDS SUMMARY | 2024-09-07 23:43 | XMS_ITS | Encounter Summary ---
Author Organization [facility] Medical Group Address [address] [address] Care Team Providers Care Transition Of Care Specialist Name Role Phone Jhonatan Bellamy MD Primary Care Provider +1- [phone] Encounter Details Date Type Department Care Team (Late st Contact Info) Description 08/22/2017 Telephone [facility] [address] [address] Abelardo Petit MD 6810 [facility] [address] [address] Social History Tobacco Use Types Packs/Day Years Used Date Smoking Tobacco: Never Smokeless Tobacco: Former Alcohol Use Standard Drinks/Week Comments No 0 (1 standard drink = 0.6 oz pur e alcohol) Sex and Gender Information Value Date Recorded Sex Assigned at Not on file Legal Sex Male 3:42 AM CAGE/VAULT SUPERVISOR Gender Identity Not on file Sexual Orientation Not on file documented as of this encounter Miscellaneous Notes * Telephone Encounter - Lisa Diaz RN - 08/22/2017 2:22 PM CST Pt igor that HR did not receive his forms. todl pt that we will refax them. /VAULT SUPERVISOR * Telephone Encounter - Lisa Diaz RN - 08/22/2017 11:31 AM CST Pt notified that forms were completed and faxed last week. /VAULT SUPERVISOR documented in this encounter Plan of Treatment Not on file documented as of this encounter Visit Diagnoses Not on filedocumented in this encounter Care Teams Transition Of Care Specialist Relationship Specialty Start Date End Date Jhonatan Bellamy MD [address] [place] [address] PCP - General 03/25/15 04/16/18 documented as of this encounter
--- OUTSIDE RECORDS SUMMARY | 2024-09-07 23:43 | XMS_ITS | Encounter Summary ---
Author Organization [facility] Address [address] [place] [address] Phone Care Team Providers Care Delivery Truck Driver Heavy Name Role Phone Jhonatan Bellamy MD Primary Care Provider +1- [phone] Encounter Details Date Type Department Care Team (Late st Contact Info) Description 03/22/2018 Orders Only [facility] Rheumatology [address] [facility] Advanced Medicine 5th [place] [address] [place] [address] Karina Johnson MD [address] [place], [place] [id number] Social History Tobacco Use Types Packs/Day Years Used Date Smoking Tobacco: Never Smokeless Tobacco: Former Alcohol Use Standard Drinks/Week Comments No 0 (1 standard drink = 0.6 oz pur e alcohol) Sex and Gender Information Value Date Recorded Sex Assigned at Not on file Legal Sex Male 3:42 AM PERSONAL SUPPORT WORKER Gender Identity Not on file Sexual [...] filedocumented in this encounter Care Teams Delivery Truck Driver Heavy Relationship Specialty Start Date End Date Jhonatan Bellamy MD [address] [place] [address] PCP - General 03/25/15 04/16/18 documented as of this encounter
--- OUTSIDE RECORDS SUMMARY | 2024-09-07 23:43 | XMS_ITS | Encounter Summary ---
Author Organization [facility] Address [address] [facility] [address] [place] [address] Care Team Providers Care Ski Binding Fitter And Repairer Name Role Phone Jhonatan Bellamy MD Primary Care Provider [phone]- [phone] Pedro Lakhani MD Primary Care Provider Eugenia Hughes MD Primary Care Provider +1- [phone] Aditya Castro MD Primary Care Provider [phone] Encounter Details Date Type Department Care Team (Late st Contact Info) Description 05/16/2017 Orders Only [facility] Cardiology [address] [facility] [address] [place] [address] Provider, MD Zev [address] [place] [address] Social History Tobacco Use Types Packs/Day Years Used Date Smoking Tobacco: Never Smokeless Tobacco: Former Alcohol Use Standard Drinks/Week Comments No 0 (1 standard drink = 0.6 oz pur e alcohol) Sex and Gender Information Value Date Recorded Sex Assigned at Not on file Legal Sex Male 3:42 AM BUILDING DRAFTING OFFICER Gender Identity Not on file Sexual [...] on filedocumented in this encounter Care Teams Ski Binding Fitter And Repairer Relationship Specialty Start Date End Date Jhonatan Bellamy MD [address] [place] [address] PCP - General 03/25/15 04/16/18 Pedro Lakhani MD [address] [place] [address] PCP - General Family Practice 04/17/18 04/18/18 Eugenia Hughes MD [address] [place] [address] PCP - General Family Practice 04/19/18 10/16/19 Aditya Castro MD [address] [facility] [place] [address] PCP - General 10/17/19 documented as of this encounter
--- OUTSIDE RECORDS SUMMARY | 2024-09-07 23:43 | XMS_ITS | Encounter Summary ---
Author Organization [facility] Address [address] [address] Care Team Providers Care Metal Rolling Mill Operator Name Role Phone Jhonatan Bellamy MD Primary Care Provider [phone]- [phone] Encounter Details Date Type Department Care Team (Late st Contact Info) Description 07/05/2017 Telephone [facility] [address] [address] Abelardo Petit MD [address] [facility] [address] [address] Social History Tobacco Use Types Packs/Day Years Used Date Smoking Tobacco: Never Smokeless Tobacco: Former Alcohol Use Standard Drinks/Week Comments No 0 (1 standard drink = 0.6 oz pur e alcohol) Sex and Gender Information Value Date Recorded Sex Assigned at Not on file Legal Sex Male 3:42 AM COMMERCIAL REAL ESTATE ASSISTANT Gender Identity Not on file Sexual Orientation Not on file documented as of this encounter Miscellaneous Notes * Telephone Encounter - Lisa Diaz RN - 07/05/2017 3:18 PM CST Told pt the his forms are complete and have been faxed. ERCIAL REAL ESTATE ASSISTANT documented in this encounter Plan of Treatment Not on file documented as of this encounter Visit Diagnoses Not on filedocumented in this encounter Care Teams Metal Rolling Mill Operator Relationship Specialty Start Date End Date Maleonelh, Jhonatan E., MD [address] [place] [address] PCP - General 03/25/15 04/16/18 documented as of this encounter
--- OUTSIDE RECORDS SUMMARY | 2024-09-07 23:43 | XMS_ITS | Encounter Summary ---
Author Organization [facility] Address [address] [address] Care Team Providers Care Technology Services Manager Name Role Phone Jhonatan Bellamy MD Primary Care Provider [phone]- [phone] Encounter Details Date Type Department Care Team (Late st Contact Info) Description 07/04/2017 Telephone [facility] [address] [address] Abelardo Petit MD [address] [facility] [address] [address] Social History Tobacco Use Types Packs/Day Years Used Date Smoking Tobacco: Never Smokeless Tobacco: Former Alcohol Use Standard Drinks/Week Comments No 0 (1 standard drink = 0.6 oz pur e alcohol) Sex and Gender Information Value Date Recorded Sex Assigned at Not on file Legal Sex Male 3:42 AM DRILLING ENGINEERING MANAGER Gender Identity Not on file Sexual Orientation Not on file documented as of this encounter Miscellaneous Notes * Telephone Encounter - Lisa Diaz RN - 07/04/2017 1:59 PM CST LMOM called , just faxed and scanned disability paperwork. LING ENGINEERING MANAGER documented in this encounter Plan of Treatment Not on file documented as of this encounter Visit Diagnoses Not on filedocumented in this encounter Care Teams Technology Services Manager Relationship Specialty Start Date End Date Malench, Jhonatan E., MD [address] [place] [address] PCP - General 03/25/15 04/16/18 documented as of this encounter
--- OUTSIDE RECORDS SUMMARY | 2024-09-07 23:43 | XMS_ITS | Encounter Summary ---
Author Organization [facility] Address [address] [address] Care Team Providers Care Container Crane Operator Name Role Phone Jhonatan Bellamy MD Primary Care Provider [phone]- [phone] Encounter Details Date Type Department Care Team (Late st Contact Info) Description 05/30/2017 Telephone [facility] [address] [address] Abelardo Petit MD [address] [facility] [address] [address] Social History Tobacco Use Types Packs/Day Years Used Date Smoking Tobacco: Never Smokeless Tobacco: Former Alcohol Use Standard Drinks/Week Comments No 0 (1 standard drink = 0.6 oz pur e alcohol) Sex and Gender Information Value Date Recorded Sex Assigned at Not on file Legal Sex Male 3:42 AM MERCHANDISING INTERNSHIP Gender Identity Not on file Sexual Orientation Not on file documented as of this encounter Miscellaneous Notes * Telephone Encounter - Lisa Diaz RN - 05/30/2017 1:54 PM CDT Spoke with pt, refaxed both documents . documented in this encounter Plan of Treatment Not on file documented as of this encounter Visit Diagnoses Not on filedocumented in this encounter Care Teams Container Crane Operator Relationship Specialty Start Date End Date Malench, Jhonatan E., MD [address] [place] [address] PCP - General 03/25/15 04/16/18 documented as of this encounter
--- OUTSIDE RECORDS SUMMARY | 2024-09-07 23:43 | XMS_ITS | Encounter Summary ---
Author Organization [facility] Address [address] [address] Care Team Providers Care Policy Analyst Name Role Phone Jhonatan Bellamy MD Primary Care Provider [phone]- [phone] Encounter Details Date Type Department Care Team (Late st Contact Info) Description 07/31/2017 Telephone [facility] [address] [address] Abelardo Petit MD 6810 [facility] [address] [address] Social History Tobacco Use Types Packs/Day Years Used Date Smoking Tobacco: Never Smokeless Tobacco: Former Alcohol Use Standard Drinks/Week Comments No 0 (1 standard drink = 0.6 oz pur e alcohol) Sex and Gender Information Value Date Recorded Sex Assigned at Not on file Legal Sex Male 3:42 AM REEL CUTTER Gender Identity Not on file Sexual Orientation Not on file documented as of this encounter Miscellaneous Notes * Telephone Encounter - Anel Hudson MA - 07/31/2017 5:11 PM CST Called pharmacy to see what medication the patient needs refilled. Gave authorization to refill furosemide 40 mg twice daily, #60 with 5 additional refills. CUTTER * Telephone Encounter - Elsie Holly RN - 07/31/2017 4:09 PM REEL CUTTER Will forward to MA's CUTTER documented in this encounter Plan of Treatment Not on file documented as of this encounter Visit Diagnoses Not on filedocumented in this encounter Care Teams Policy Analyst Relationship Specialty Start Date End Date Jhonatan Bellamy MD [address] [place] [address] PCP - General 03/25/15 04/16/18 documented as of this encounter
--- OUTSIDE RECORDS SUMMARY | 2024-09-07 23:43 | XMS_ITS | Encounter Summary ---
Author Organization [facility] Address [address] [facility] [address] [place] [address] Care Team Providers Care Chief Maintenance Supervisor Name Role Phone Aditya Castro MD Primary Care Provider [phone] Encounter Details Date Type Department Care Team (Late st Contact Info) Description 02/03/2020 Orders Only [facility] Cardiology [address] [facility] 162 [facility] 102 [place] [address] Licha Hay, ROBERTO [address] [facility] 102 [place] [address] Social History Tobacco Use Types Packs/Day Years Used Date Smoking Tobacco: Never Smokeless Tobacco: Former Alcohol Use Standard Drinks/Week Comments No 0 (1 standard drink = 0.6 oz pur e alcohol) Sex and Gender Information Value Date Recorded Sex Assigned at Not on file Legal Sex Male 3:42 AM COUNSELLING PSYCHOLOGIST Gender Identity Not on file Sexual Orientation [...] [facility] [place] [place] [address] PCP - General 10/17/19 documented as of this encounter
--- OUTSIDE RECORDS SUMMARY | 2024-09-07 23:43 | XMS_ITS | Encounter Summary ---
Author Organization [facility] Address [address] [facility] [address] [place] [address] Care Team Providers Care Vat House Laborer Name Role Phone Eugenia Hughes MD Primary Care Provider +1- [phone] Encounter Details Date Type Department Care Team (Late st Contact Info) Description 09/09/2019 Orders Only [facility] Cardiology [address] [facility] [address] [address] Abelardo Petit MD [address] [place] [address] Social History Tobacco Use Types Packs/Day Years Used Date Smoking Tobacco: Never Smokeless Tobacco: Former Alcohol Use Standard Drinks/Week Comments No 0 (1 standard drink = 0.6 oz pur e alcohol) Sex and Gender Information Value Date Recorded Sex Assigned at Not on file Legal Sex Male 3:42 AM TECHNICAL ILLUSTRATOR Gender Identity Not on file Sexual Orientation [...] on filedocumented in this encounter Care Teams Vat House Laborer Relationship Specialty Start Date End Date Dill Rader, Eugenia, MD PCP - General Family Practice 04/19/18 10/16/19 documented as of this encounter
--- OUTSIDE RECORDS SUMMARY | 2024-09-07 23:43 | XMS_ITS | Encounter Summary ---
Author Organization [facility] Address [address] [place] [address] Phone Care Team Providers Care Sourcing Coordinator Name Role Phone Jhonatan Bellamy MD Primary Care Provider [phone]- [phone] Reason for Visit * Reason Onset Date Comments Prior Auth 02/19/2018 uloric 40mg once daily Encounter Details Date Type Department Care Team (Late st Contact Info) Description 02/19/[address] [place] [address] [place] [address] Martha Duckworth Prior Auth (uloric 40mg once daily) Social History Tobacco Use Types Packs/Day Years Used Date Smoking Tobacco: Never Smokeless Tobacco: Former Alcohol Use Standard Drinks/Week Comments No 0 (1 standard drink = 0.6 oz pur e alcohol) Sex and Gender Information Value Date Recorded Sex Assigned at Not on file Legal Sex Male 3:42 AM COMMUNITY HEALTH PROGRAM REPRESENTATIVE Gender Identity Not on file Sexual Orientation Not on file documented as of this encounter Miscellaneous Notes * Telephone Encounter - Josselin Meyers BS - 02/26/2018 9:17 AM CDT MEDICATION PRIOR AUTHORIZATION FORM Date: 02/26/18 Patient Name: Juvenal Daigle : 1970 PROVIDER: NAVARRO PELLETIER PRIMARY DIAGNOSIS: CHRONIC GOUT ICD-10 CODE: M1A.9XX0 RX BENEFIT OUTSIDE RESIDENTIAL SALES PROFESSIONAL: DIANE HEARN ID#: [id number] CUSTOMER SERVICE PH#: FAX#: DRUG INFORMATION: ULORIC 40mg TABLETS Requested Prescriptions No prescriptions requested or ordered in this encounter CAN THIS DRUG BE FILLED AT ANY PHARMACY?: DOES THIS DRUG REQUIRE THE USE OF A SPECIALTY PHARMACY?: PHARMACY NAME: PHONE#: FAX#: AUTH#: [id number] EFFECTIVE: 02/20/2018 EXPIRES: 05/20/2018 NOTES: Lisa JACKSON: [...] on filedocumented in this encounter Care Teams Sourcing Coordinator Relationship Specialty Start Date End Date Jhonatan Bellamy MD [address] [place] [address] PCP - General 03/25/15 04/16/18 documented as of this encounter
--- OUTSIDE RECORDS SUMMARY | 2024-09-07 23:43 | XMS_ITS | Encounter Summary ---
Author Organization [facility] Address [address] [place] [address] Care Team Providers Care Compensation And Hris Analyst Name Role Phone Jhonatan Bellamy MD Primary Care Provider +1- [phone] Encounter Details Date Type Department Care Team (Latest Contact Info) Description 06/13/2017 8:00 AM CDT - 06/13/2017 11:01 AM T Hospital Encounter [facility] [phone] Corine Arriaga MD [address] [place] [address] Discharge Disposition: Discharge to home or self care Social History Tobacco Use Types Packs/Day Years Used Date Smoking Tobacco: Never Smokeless Tobacco: Former Alcohol Use Standard Drinks/Week Comments No 0 (1 standard drink = 0.6 oz pur e alcohol) Sex and Gender Information Value Date Recorded Sex Assigned at Not on file Legal Sex Male 3:42 AM RADIO PRESENTER Gender Identity Not on file Sexual Orientation Not on file documented as of this encounter Medications at Time of Discharge aspirin 81 mg enteric coated tabletIndications: Myocardial Reinfarction Prevention Take 1 tablet (81 mg total) by mouth daily 11/07/2013 nitroglycerin (NITROSTAT) 0.4 mg SL tabletIndications: Coronary artery disease involving [place] coronary artery of [place]ark[place] heart, angina presence unspecified Place 1 tablet [...] MD Zev - 06/13/2017 12:00 AM CDT [facility] Patient: JUVENAL GARVIN Account: [id number] Room No: : 1970 Proc. Date: 06/13/2017 Surgeon: CORINE ARRIAGA M.D. Admit Date: 06/13/2017 Disch. 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 ANESTHESIA General with LMA. PROCEDURE Cataract removal by phacoemulsification and implantation of +21.5 diopter Tecnis [id number] lens right eye. DESCRIPTION OF THE PROCEDURE [...] visually verifying that a 21.5 diopter Tecnis [id number] was the correct lens for this pt, [...] OF CARE TEST ORDERABLES Final Result [facility] [address] [facility] Department [place] [address] * DISCHARGE LABORATORY CUMULATIVE REPORT (06/13/2017 12:00 AM CDT) Narrative 06/13/2017 12:00 AM CDT Ordered by an unspecified provider. Historical Provider LAB BLOOD ORDERABLES Ann Marie l Result documented in this encounter Visit Diagnoses Not on filedocumented in this encounter Care Teams Compensation And Hris Analyst Relationship Specialty Start Date End Date Jhonatan Bellamy MD [address] [place] [address] PCP - General 03/25/15 04/16/18 documented as of this encounter
--- OUTSIDE RECORDS SUMMARY | 2024-09-07 23:43 | XMS_ITS | Encounter Summary ---
Author Organization [facility] Address [address] [address] Care Team Providers Care Skills Instructor Name Role Phone Jhonatan Bellamy MD Primary Care Provider +1- [phone] Encounter Details Date Type Department Care Team (Late st Contact Info) Description 05/31/2017 Telephone [facility] [address] [address] Abelardo Petit MD 6810 [facility] [address] [address] Social History Tobacco Use Types Packs/Day Years Used Date Smoking Tobacco: Never Smokeless Tobacco: Former Alcohol Use Standard Drinks/Week Comments No 0 (1 standard drink = 0.6 oz pur e alcohol) Sex and Gender Information Value Date Recorded Sex Assigned at Not on file Legal Sex Male 3:42 AM SCREEN EXAMINER Gender Identity Not on file Sexual Orientation Not on file documented as of this encounter Miscellaneous Notes * Telephone Encounter - Lisa Diaz RN - 05/31/2017 3:41 PM CDT Called pt, [facility] still does not have everything they need. Had patient give the phone number for Marcelino To who is handling the case for pt Contact for Marcelino is [phone] . He wants documentation of patient's medical condition. Send all records, including early May office note. Form ws faxed previously ,refaxed. documented in this encounter Plan of Treatment Not on file documented as of this encounter Visit Diagnoses Not on filedocumented in this encounter Care Teams Skills Instructor Relationship Specialty Start Date End Date Jhonatan Bellamy MD [address] [place], [place] [address] PCP - General 03/25/15 04/16/18 documented as of this encounter
--- OUTSIDE RECORDS SUMMARY | 2024-09-07 23:43 | XMS_ITS | Encounter Summary ---
Author Organization [facility] Address [address] [address] Care Team Providers Care Promotions Executive Producer Name Role Phone Jhonatan Bellamy MD Primary Care Provider +1- [phone] Encounter Details Date Type Department Care Team (Late st Contact Info) Description 09/07/2017 Telephone [facility] [address] [place] [address] Carrington Weeks MD [address] [place] [address] Social History Tobacco Use Types Packs/Day Years Used Date Smoking Tobacco: Never Smokeless Tobacco: Former Alcohol Use Standard Drinks/Week Comments No 0 (1 standard drink = 0.6 oz pur e alcohol) Sex and Gender Information Value Date Recorded Sex Assigned at Not on file Legal Sex Male 3:42 AM PHOTOENGRAVING APPRENTICE Gender Identity Not on file Sexual Orientation Not on file documented as of this encounter Miscellaneous Notes * Telephone Encounter - Anel Hudson MA - 09/08/2017 1:37 PM CST Called patient. He wanted to make an appointment to discuss being released to go back to work without restrictions. Scheduled patient with Dr. Petit for 09/13/2017 at 9 am. OENGRAVING APPRENTICE documented in this encounter Plan of Treatment Not on file documented as of this encounter Visit Diagnoses Not on filedocumented in this encounter Care Teams Promotions Executive Producer Relationship Specialty Start Date End Date Jhonatan Bellamy MD [address] [place] [address] PCP - General 03/25/15 04/16/18 documented as of this encounter
--- OUTSIDE RECORDS SUMMARY | 2024-09-07 23:43 | XMS_ITS | Encounter Summary ---
Author Organization [facility] Address [address] [address] Care Team Providers Care Cleaner Carpet And Upholstery Name Role Phone Jhonatan Bellamy MD Primary Care Provider +1- [phone] Encounter Details Date Type Department Care Team (Late st Contact Info) Description 06/14/2017 Telephone [facility] [address] [address] Abelardo Petit MD [address] [facility] [address] [address] Social History Tobacco Use Types Packs/Day Years Used Date Smoking Tobacco: Never Smokeless Tobacco: Former Alcohol Use Standard Drinks/Week Comments No 0 (1 standard drink = 0.6 oz pur e alcohol) Sex and Gender Information Value Date Recorded Sex Assigned at Not on file Legal Sex Male 3:42 AM LINUX SYSTEM ADMIN Gender Identity Not on file Sexual [...] on filedocumented in this encounter Care Teams Cleaner Carpet And Upholstery Relationship Specialty Start Date End Date Jhonatan Bellamy MD [address] [place] [address] PCP - General 03/25/15 04/16/18 documented as of this encounter
--- OUTSIDE RECORDS SUMMARY | 2024-09-07 23:43 | XMS_ITS | Encounter Summary ---
Author Organization [facility] Address [address] [facility] [address] [place] [address] Care Team Providers Care Buggy Runner Name Role Phone Jhonatan Bellamy MD Primary Care Provider +1- [phone] Encounter Details Date Type Department Care Team (Late st Contact Info) Description 11/15/2017 Telephone [facility] 6810 [facility] [address] [address] Abelardo Petit MD [address] [facility] 102 [place] [address] Social History Tobacco Use Types Packs/Day Years Used Date Smoking Tobacco: Never Smokeless Tobacco: Former Alcohol Use Standard Drinks/Week Comments No 0 (1 standard drink = 0.6 oz pur e alcohol) Sex and Gender Information Value Date Recorded Sex Assigned at Not on file Legal Sex Male 3:42 AM MATERIALS AND PROCESSES MANAGER Gender Identity Not on file Sexual Orientation Not on file documented as of this encounter Miscellaneous Notes * Telephone Encounter - Lisa Diaz RN - 11/15/2017 10:07 AM CDT Called pt back, he asked if paperwork from [facility] [employer] was received. It has not been. Pt does not Want usto send anything to [facility] releasing him to work, He has chest pressure and feels really lousy at work. He is exhausted after working a shift. He has an dairy bar manager to help him with SS disability * [...] about disability. Pt can be reached at [phone] LV Ram documented in this encounter Plan of Treatment Not on file documented as of this encounter Visit Diagnoses Not on filedocumented in this encounter Care Teams Buggy Runner Relationship Specialty Start Date End Date Jhonatan Bellamy MD [address] [place] [address] PCP - General 03/25/15 04/16/18 documented as of this encounter
--- OUTSIDE RECORDS SUMMARY | 2024-09-07 23:43 | XMS_ITS | Encounter Summary ---
Author Organization [facility] Address [address] [place] [address] Phone Care Team Providers Care Chief Engineering Division Name Role Phone Jhonatan Bellamy MD Primary Care Provider +1- [phone] Reason for Visit * Reason Onset Date Comments Prior Auth 01/23/2018 pa for Colcrys n eeded Encounter Details Date Type Department Care Team (Late st Contact Info) Description 01/23/2018 Telephone [facility] Scheduling [address] [place], [place] [id number] Karina Pelletier MD [address] [place], [place] [id number] Prior Auth (pa for Colcrys needed) Social History Tobacco Use Types Packs/Day Years Used Date Smoking Tobacco: Never Smokeless Tobacco: Former Alcohol Use Standard Drinks/Week Comments No 0 (1 standard drink = 0.6 oz pur e alcohol) Sex and Gender Information Value Date Recorded Sex Assigned at Not on file Legal Sex Male 3:42 AM MAINTENANCE MECHANIC HELPER Gender Identity Not on file Sexual Orientation Not on file documented as of this encounter Miscellaneous Notes * Telephone Encounter - Josselin Meyers BS - 01/25/2018 3:53 PM CDT SPOKE WITH MR. GARVIN AND SENT TASK TO DR. PELLETIER REGARDING COLCHICINE MEDICATION. Pt [place] 01/19/18-02/17/18. [employer] BECOMES EFFECTIVE ON [...] filedocumented in this encounter Care Teams Chief Engineering Division Relationship Specialty Start Date End Date Jhonatan Bellamy MD [address] [place] [address] PCP - General 03/25/15 04/16/18 documented as of this encounter
--- OUTSIDE RECORDS SUMMARY | 2024-09-07 23:43 | XMS_ITS | Encounter Summary ---
Author Organization [facility] Address [address] [facility] [address] [place] [address] Care Team Providers Care Airplane Engineer Name Role Phone Jhonatan Bellamy MD Primary Care Provider +1- [phone] Encounter Details Date Type Department Care Team (Late st Contact Info) Description 06/13/2017 Telephone [facility] [address] [address] Abelardo Petit MD 6810 [facility] [address] [address] Social History Tobacco Use Types Packs/Day Years Used Date Smoking Tobacco: Never Smokeless Tobacco: Former Alcohol Use Standard Drinks/Week Comments No 0 (1 standard drink = 0.6 oz pur e alcohol) Sex and Gender Information Value Date Recorded Sex Assigned at Not on file Legal Sex Male 3:42 AM EQUAL OPPORTUNITY DIRECTOR Gender Identity Not on file Sexual [...] as of this encounter Care Teams Airplane Engineer Relationship Specialty Start Date End Date Jhonatan Bellamy MD [address] [place] [address] PCP - General 03/25/15 04/16/18 documented as of this encounter
--- OUTSIDE RECORDS SUMMARY | 2024-09-07 23:43 | XMS_ITS | Encounter Summary ---
Author Organization [facility] Address [address] [address] Care Team Providers Care Poultry Culler Name Role Phone Jhonatan Bellamy MD Primary Care Provider +1- [phone] Encounter Details Date Type Department Care Team (Late st Contact Info) Description 05/26/2017 Telephone [facility] [address] [address] Abelardo Petit MD 6810 [facility] [address] [address] Social History Tobacco Use Types Packs/Day Years Used Date Smoking Tobacco: Never Smokeless Tobacco: Former Alcohol Use Standard Drinks/Week Comments No 0 (1 standard drink = 0.6 oz pur e alcohol) Sex and Gender Information Value Date Recorded Sex Assigned at Not on file Legal Sex Male 3:42 AM RESEARCH CHEF Gender Identity Not on file Sexual Orientation Not on file documented as of this encounter Miscellaneous Notes * Telephone Encounter - Chula Dodson MA - 05/26/2017 11:50 AM CDT Called medications into pharmacy with Neymar. documented in this encounter Plan of Treatment Not on file documented as of this encounter Visit Diagnoses Not on filedocumented in this encounter Care Teams Poultry Culler Relationship Specialty Start Date End Date Jhonatan Bellamy MD [address] [place] [address] PCP - General 03/25/15 04/16/18 documented as of this encounter
--- OUTSIDE RECORDS SUMMARY | 2024-09-07 23:43 | XMS_ITS | Encounter Summary ---
Author Organization [facility] Address [address] [address] Care Team Providers Care Technician Trainee Name Role Phone Jhonatan Bellamy MD Primary Care Provider +1- [phone] Encounter Details Date Type Department Care Team (Late st Contact Info) Description 05/22/2017 Telephone [facility] [address] [address] Abelardo Petit MD 6810 [facility] [address] [address] Social History Tobacco Use Types Packs/Day Years Used Date Smoking Tobacco: Never Smokeless Tobacco: Former Alcohol Use Standard Drinks/Week Comments No 0 (1 standard drink = 0.6 oz pur e alcohol) Sex and Gender Information Value Date Recorded Sex Assigned at Not on file Legal Sex Male 3:42 AM WAFER CLEANER Gender Identity Not on file Sexual [...] documented as of this encounter Care Teams Technician Trainee Relationship Specialty Start Date End Date Jhonatan Bellamy MD [address] [place] [address] PCP - General 03/25/15 04/16/18 documented as of this encounter
--- OUTSIDE RECORDS SUMMARY | 2024-09-07 23:43 | XMS_ITS | Encounter Summary ---
Author Organization [facility] Address [address] [address] Care Team Providers Care Roofing Plant Supervisor Name Role Phone Jhonatan Belalmy MD Primary Care Provider +1- [phone] Encounter Details Date Type Department Care Team (Late st Contact Info) Description 08/15/2017 Telephone [facility] [address] [address] Abelardo Petit MD 6810 [facility] [address] [address] Social History Tobacco Use Types Packs/Day Years Used Date Smoking Tobacco: Never Smokeless Tobacco: Former Alcohol Use Standard Drinks/Week Comments No 0 (1 standard drink = 0.6 oz pur e alcohol) Sex and Gender Information Value Date Recorded Sex Assigned at Not on file Legal Sex Male 3:42 AM EMT B Gender Identity Not on file Sexual Orientation [...] hospital over [facility], he insisted on leaving. B documented in this encounter Plan of Treatment Not on file documented as of this encounter Visit Diagnoses Not on filedocumented in this encounter Care Teams Roofing Plant Supervisor Relationship Specialty Start Date End Date Jhonatan Bellamy MD [address] [place] [address] PCP - General 03/25/15 04/16/18 documented as of this encounter
--- OUTSIDE RECORDS SUMMARY | 2024-09-07 23:43 | XMS_ITS | Encounter Summary ---
Author Organization [facility] Address [address] [place] [address] Phone Care Team Providers Care Chamber Worker Name Role Phone Jhonatan Bellamy MD Primary Care Provider +1- [phone] Reason for Visit * Reason Onset Date Comments Prior Auth 03/29/2018 PA needed for Ul oric Encounter Details Date Type Department Care Team (Late st Contact Info) Description 03/29/2018 Telephone [facility] Rheumatology [address] [facility] Advanced Medicine 5th [place] [address] [place] [address] Navarro Pelletier MD [address] [place], [place] [id number] Prior Auth (PA needed for Uloric ) Social History Tobacco Use Types Packs/Day Years Used Date Smoking Tobacco: Never Smokeless Tobacco: Former Alcohol Use Standard Drinks/Week Comments No 0 (1 standard drink = 0.6 oz pur e alcohol) Sex and Gender Information Value Date Recorded Sex Assigned at Not on file Legal Sex Male 3:42 AM POLE LIFT OPERATOR Gender Identity Not on file Sexual [...] DIAGNOSIS: GOUT ICD-10 CODE: M1A.9 RX BENEFIT CERTIFIED EXECUTIVE CHEF: GABINO ID#: [id number] Pay-Me #: [phone] FAX#: DRUG INFORMATION: Requested Prescriptions Pending Prescriptions [...] filedocumented in this encounter Care Teams Chamber Worker Relationship Specialty Start Date End Date Jhonatan Bellamy MD [address] [place], [place] [id number] PCP - General 03/25/15 04/16/18 documented as of this encounter
--- OUTSIDE RECORDS SUMMARY | 2024-09-07 23:43 | XMS_ITS | Encounter Summary ---
Author Organization [facility] Address [address] [address] Care Team Providers Care Specialty Therapist Name Role Phone Jhonatan Bellamy MD Primary Care Provider +1- [phone] Encounter Details Date Type Department Care Team (Late st Contact Info) Description 08/07/2017 Telephone [facility] [address] [address] Abelardo Petit MD 6810 [facility] [address] [address] Social History Tobacco Use Types Packs/Day Years Used Date Smoking Tobacco: Never Smokeless Tobacco: Former Alcohol Use Standard Drinks/Week Comments No 0 (1 standard drink = 0.6 oz pur e alcohol) Sex and Gender Information Value Date Recorded Sex Assigned at Not on file 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 Will call patient when it's ready. SCHOOL CHEMISTRY TEACHER * Telephone Encounter - Lisa Diaz RN - 08/07/2017 3:55 PM CST Pt needs note stating that he has been under the care of Dr Petit. He had an [place] and subsequent stent placement and has been unable to work since March. Will check with Dr Petit. 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 SCHOOL CHEMISTRY TEACHER * Telephone Encounter - Lisa Diaz RN - 08/07/2017 3:07 PM CST Called pt, told him that Disability paperwork has been faxed and confirmation received. LMOM SCHOOL CHEMISTRY TEACHER * Telephone Encounter - Lisa Diaz RN - 08/07/2017 1:34 PM CST Pt said he's having cataract surgery Next week. He needs clearance for the surgery. Will check withdr Petit . Pt did not go back to work last week because they want him to complete ADA paperworkfirst and he has not received it. SCHOOL CHEMISTRY TEACHER * Telephone Encounter - Elsie Holly RN - 08/07/2017 12:33 PM HIGH SCHOOL CHEMISTRY TEACHER I did not receive any forms on Monday. SCHOOL CHEMISTRY TEACHER * Telephone Encounter - Lisa Diaz RN - 08/07/2017 12:02 PM CST Pt said he dropped off forms on Monday for his short term disability. Told pt I don not have those forms, will check with the nurse that was here on Monday. SCHOOL CHEMISTRY TEACHER documented in this encounter Plan of Treatment Not on file documented as of this encounter Visit Diagnoses Not on filedocumented in this encounter Care Teams Specialty Therapist Relationship Specialty Start Date End Date Jhonatan Bellamy MD [address] [place] [address] PCP - General 03/25/15 04/16/18 documented as of this encounter
--- OUTSIDE RECORDS SUMMARY | 2024-09-07 23:43 | XMS_ITS | Encounter Summary ---
Author Organization [facility] Address [address] [address] Care Team Providers Care Restaurant Line Server Name Role Phone Jhonatan Bellamy MD Primary Care Provider +1- [phone] Encounter Details Date Type Department Care Team (Late st Contact Info) Description 08/01/2017 Telephone [facility] [address] [address] Abelardo Petit MD 6810 [facility] [address] [address] Social History Tobacco Use Types Packs/Day Years Used Date Smoking Tobacco: Never Smokeless Tobacco: Former Alcohol Use Standard Drinks/Week Comments No 0 (1 standard drink = 0.6 oz pur e alcohol) Sex and Gender Information Value Date Recorded Sex Assigned at Not on file Legal Sex Male 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 TRAINER documented in this encounter Plan of Treatment Not on file documented as of this encounter Visit Diagnoses Not on filedocumented in this encounter Care Teams Restaurant Line Server Relationship Specialty Start Date End Date Malench, Jhonatan E., MD [address] [place] [address] PCP - General 03/25/15 04/16/18 documented as of this encounter
--- OUTSIDE RECORDS SUMMARY | 2024-09-07 23:43 | XMS_ITS | Encounter Summary ---
Author Organization [facility] Address [address] 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
--- OUTSIDE RECORDS SUMMARY | 2024-09-07 23:43 | XMS_ITS | Encounter Summary ---
Author Organization [facility] Address [address] [address] Care Team Providers Care Residential Lawn Specialist Name Role Phone Jhonatan Bellamy MD Primary Care Provider +1- [phone] Encounter Details Date Type Department Care Team (Late st Contact Info) Description 08/03/2017 Telephone [facility] [address] [address] Abelardo Petit MD 6810 [facility] [address] [address] Social History Tobacco Use Types Packs/Day Years Used Date Smoking Tobacco: Never Smokeless Tobacco: Former Alcohol Use Standard Drinks/Week Comments No 0 (1 standard drink = 0.6 oz pur e alcohol) Sex and Gender Information Value Date Recorded Sex Assigned at Not on file Legal Sex Male 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 FIC INVESTIGATOR documented in this encounter Plan of Treatment Not on file documented as of this encounter Visit Diagnoses Not on filedocumented in this encounter Care Teams Residential Lawn Specialist Relationship Specialty Start Date End Date Jhonatan Bellamy MD [address] [place] [address] PCP - General 03/25/15 04/16/18 documented as of this encounter
--- OUTSIDE RECORDS SUMMARY | 2024-09-07 23:43 | XMS_ITS | Encounter Summary ---
Author Organization [facility] Address [address] [address] Care Team Providers Care Put In Beat Adjuster Name Role Phone Jhonatan Bellamy MD Primary Care Provider +1- [phone] Encounter Details Date Type Department Care Team (Late st Contact Info) Description 01/22/2018 Telephone [facility] [address] [address] Abelardo Petit MD [address] [facility] [address] [address] Social History Tobacco Use Types Packs/Day Years Used Date Smoking Tobacco: Never Smokeless Tobacco: Former Alcohol Use Standard Drinks/Week Comments No 0 (1 standard drink = 0.6 oz pur e alcohol) Sex and Gender Information Value Date Recorded Sex Assigned at Not on file Legal Sex Male 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 Please cb [phone] documented in this encounter Plan of Treatment Not on file documented as of this encounter Visit Diagnoses Not on filedocumented in this encounter Care Teams Put In Beat Adjuster Relationship Specialty Start Date End Date Jhonatan Bellamy [place] [address] PCP - General 03/25/15 04/16/18 documented as of this encounter
--- OUTSIDE RECORDS SUMMARY | 2024-09-07 23:43 | XMS_ITS | Encounter Summary ---
Author Organization [facility] Address [address] [facility] [address] [place] [address] Care Team Providers Care Medical Information Specialist Name Role Phone Jhonatan Bellamy MD Primary Care Provider +1- [phone] Reason for Visit * Reason Comments Coronary Artery Disease Chronic Kidney Disease one mo f/u Encounter Details Date Type Department Care Team (Late st Contact Info) Description 12/14/2017 11:45 AM CDT Office Visit [facility] [address] [address] Abelardo Petit MD [address] [facility] [address] [id number] 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[place] artery of [place] heart with stable angina pectoris (CMS/HCC) (Primary Dx); History of coronary artery stent placement Social History Tobacco Use Types Packs/Day Years Used Date Smoking Tobacco: Never Smokeless Tobacco: Former Alcohol Use Standard Drinks/Week Comments No 0 (1 standard drink = 0.6 oz pur e alcohol) Sex and Gender Information Value Date Recorded Sex Assigned at Not on file Legal Sex Male 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 He underwent catheterization in 5 of was found to have high-grade stenosis in the distal right coronary artery bridging over the origin of the machine sander lateral branch. He also had diffuse non [...] so he can pursue this with his veneer repairer machine. REVIEW OF SYSTEMS General ROS: negative for [...] for this visit: 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[place] artery of [place] heart with stable angina pectoris (CMS/HCC) History [...] Visit Diagnoses Diagnosis 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[place] artery of [place] heart with stable angina pectoris (HCC)- Primary History of coronary artery stent placement documented in this encounter Care Teams Medical Information Specialist Relationship Specialty Start Date End Date Jhonatan Bellamy MD [address] [place] [address] PCP - General 03/25/15 04/16/18 documented as of this encounter
--- OUTSIDE RECORDS SUMMARY | 2024-09-07 23:43 | XMS_ITS | Encounter Summary ---
Author Organization [facility] Address [address] [address] Care Team Providers Care Social Service Assistant Name Role Phone Jhonatan eBllamy MD Primary Care Provider +1- [phone] Encounter Details Date Type Department Care Team (Late st Contact Info) Description 2017 Telephone [facility] [address] [address] Abelardo Petit MD [address] [facility] [address] [address] Social History Tobacco Use Types Packs/Day Years Used Date Smoking Tobacco: Never Smokeless Tobacco: Former Alcohol Use Standard Drinks/Week Comments No 0 (1 standard drink = 0.6 oz pur e alcohol) Sex and Gender Information Value Date Recorded Sex Assigned at Not on file Legal Sex Male 3:42 AM WASTE TRANSPORTATION TECHNICIAN Gender Identity Not on file Sexual Orientation Not on file documented as of this encounter Miscellaneous Notes * Telephone Encounter - Lisa Diaz RN - 2017 2:54 PM CST Told pt that Dr Petit is in the office today and I asked someone to ask him about completing the ADA forms. I will call pt when they are complete. E TRANSPORTATION TECHNICIAN documented in this encounter Plan of Treatment Not on file documented as of this encounter Visit Diagnoses Not on filedocumented in this encounter Care Teams Social Service Assistant Relationship Specialty Start Date End Date Jhonatan Bellamy MD [address] [place], [place] [id number] PCP - General 03/25/15 04/16/18 documented as of this encounter
--- OUTSIDE RECORDS SUMMARY | 2024-09-07 23:43 | XMS_ITS | Encounter Summary ---
Author Organization [facility] Address [address] [place] [address] Phone Care Team Providers Care Mortgage Specialist Name Role Phone Jhonatan Bellamy MD Primary Care Provider +1- [phone] Encounter Details Date Type Department Care Team (Late st Contact Info) Description 03/15/2018 Orders Only [facility] Rheumatology 49[address] [facility] Advanced Medicine 5th [place] [address] [place] [address] Alexis Gonzalez RMA Chronic gout [...] file Legal Sex Male 3:42 AM SUPERVISOR OF RESEARCH Gender Identity Not on file Sexual Orientation Not on file documented as of this encounter Plan of Treatment Not on file documented as of this encounter Visit Diagnoses Diagnosis Chronic gout with tophus, unspecified cause, unspecified site- Primary documented in this encounter Care Teams Mortgage Specialist Relationship Specialty Start Date End Date Jhonatan Bellamy MD [address] [place] [address] PCP - General 03/25/15 04/16/18 documented as of this encounter
--- OUTSIDE RECORDS SUMMARY | 2024-09-07 23:43 | XMS_ITS | Encounter Summary ---
Author Organization [facility] Address [address] [facility] [address] [place] [address] Care Team Providers Care Facility Assistant Name Role Phone Jhonatan Bellamy MD Primary Care Provider +1- [phone] Reason for Visit * Reason Comments Hospital Follow Up sob/chf Encounter Details Date Type Department Care Team (Late st Contact Info) Description 07/19/2017 10:15 AM BUSINESS DEVELOPMENT SPECIALIST Office Visit [facility] [address] [address] Abelardo Petit MD 6810 [facility] [address] [address] History of coronary artery stent placement (Primary Dx); 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[place] artery of [place] heart with stable angina pectoris (CMS/HCC) Social History Tobacco Use Types Packs/Day Years Used Date Smoking Tobacco: Never Smokeless Tobacco: Former Alcohol Use Standard Drinks/Week Comments No 0 (1 standard drink = 0.6 oz pur e alcohol) Sex and Gender Information Value Date Recorded Sex Assigned at Not on file Legal Sex Male 3:42 AM BUSINESS DEVELOPMENT SPECIALIST Gender Identity Not on file Sexual Orientation Not on file documented as of this encounter Last Filed Vital Signs Vital Sign Reading Time Taken Comments Blood Pressure 156/64 07/19/2017 10:34 AM BUSINESS DEVELOPMENT SPECIALIST Pulse 69 07/19/2017 10:34 AM BUSINESS DEVELOPMENT SPECIALIST Temperature - - Respiratory Rate - - Oxygen Saturation 98% 07/19/2017 10:34 AM BUSINESS DEVELOPMENT SPECIALIST Inhaled Oxygen Concentration - - Weight 116.6 kg (257 lb) 07/19/2017 10:34 AM BUSINESS DEVELOPMENT SPECIALIST Height 177.8 cm (5' 10 ) 07/19/2017 10:34 AM BUSINESS DEVELOPMENT SPECIALIST Body Mass Index 36.88 07/19/2017 10:34 AM BUSINESS DEVELOPMENT SPECIALIST documented in this encounter Progress Notes [...] enzyme evidence of a non ST elevation [place]. He underwent catheterization and was found to have a high-grade stenosis in the distal right coronary artery bridging over the origin of his frame and scrap crusher lateral branch. He also has diffuse non flow limiting disease elsewhere. There shimon 80% ostial stenosis of a very small 1st marginal branch of his circumflex which is being treatedmedically. The patient's other comorbidities include hypertension advanced chronic kidney disease and longstanding diabetes. He has significant anemia of chronic disease as well. The patient was rehospitalized at [facility] in April of 2017 with some dyspnea [...] again hospitalized for about a week at [facility] with symptomatic shortness of breath and was [...] requires manual exertion. He works for the [employer] at [place] and we need to contact them and [...] artery stent placement 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[place] artery of [place] heart with stable angina pectoris (CMS/HCC) PLAN/RECOMMENDATIONS No change in cardiovascular regimen Continues to follow up closely with his ornamental metal worker helper in terms of his renal insufficiency and diuretic management Will have to contact his employer to find out if he has options that do not require significant manual exertion. Abelardo Petit MD NESS DEVELOPMENT SPECIALIST documented in this encounter Plan of Treatment Not on file documented as of this encounter Visit Diagnoses Diagnosis History of coronary artery stent placement- Primary 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[place] artery of [place] heart with stable angina [...] 01/20/2021 added in this encounter Care Teams Facility Assistant Relationship Specialty Start Date End Date Jhonatan Bellamy [place] [address] PCP - General 03/25/15 04/16/18 documented as of this encounter
--- OUTSIDE RECORDS SUMMARY | 2024-09-07 23:43 | XMS_ITS | Encounter Summary ---
Author Organization [facility] Medical Group Address [address] [address] Care Team Providers Care Payroll Analyst Name Role Phone Jhonatan Bellamy MD Primary Care Provider +1- [phone] Encounter Details Date Type Department Care Team (Late st Contact Info) Description 07/20/2017 Telephone [facility] [address] [address] Abelardo Petit MD 6810 [facility] [address] [address] Social History Tobacco Use Types Packs/Day Years Used Date Smoking Tobacco: Never Smokeless Tobacco: Former Alcohol Use Standard Drinks/Week Comments No 0 (1 standard drink = 0.6 oz pur e alcohol) Sex and Gender Information Value Date Recorded Sex Assigned at Not on file Legal Sex Male 3:42 AM GENERAL MATCHER Gender Identity Not on file Sexual Orientation Not on file documented as of this encounter Miscellaneous Notes * Telephone Encounter - Lisa Diaz RN - 07/20/2017 2:49 PM CST Pt will call backw ith where to send his fitness for duty form. RAL MATCHER * Telephone Encounter - Lisa Diaz RN - 07/20/2017 2:48 PM CST told pt I have his daughter's FMLa paperwork for intermittent leave. Will complete and ffax as soonas possible. RAL MATCHER documented in this encounter Plan of Treatment Not on file documented as of this encounter Visit Diagnoses Not on filedocumented in this encounter Care Teams Payroll Analyst Relationship Specialty Start Date End Date Jhonatan Bellamy MD [address] [place] [address] PCP - General 03/25/15 04/16/18 documented as of this encounter
--- OUTSIDE RECORDS SUMMARY | 2024-09-07 23:43 | XMS_ITS | Encounter Summary ---
Author Organization [facility] Medical Group Address [address] [address] Care Team Providers Care Falsework Builder Name Role Phone Jhonatan Bellamy MD Primary Care Provider +1- [phone] Encounter Details Date Type Department Care Team (Late st Contact Info) Description 10/02/2017 Telephone [facility] [address] [address] Abelardo Petit MD 6810 [facility] [address] [address] Social History Tobacco Use Types Packs/Day Years Used Date Smoking Tobacco: Never Smokeless Tobacco: Former Alcohol Use Standard Drinks/Week Comments No 0 (1 standard drink = 0.6 oz pur e alcohol) Sex and Gender Information Value Date Recorded Sex Assigned at Not on file Legal Sex Male 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 LE SCHOOL COACH * Telephone Encounter - Lissy Schneider MA - 10/02/2017 4:33 PM CST Spoke pt. Pt states that he spoke with Robin. Pt states that he would return to work on 10/10/17 and would like a call back from Robin. Pt would like note to say that he can return to work at full duty. LE SCHOOL COACH documented in this encounter Plan of Treatment Not on file documented as of this encounter Visit Diagnoses Not on filedocumented in this encounter Care Teams Falsework Builder Relationship Specialty Start Date End Date Jhonatan Bellamy MD [address] [place] [address] PCP - General 03/25/15 04/16/18 documented as of this encounter
--- OUTSIDE RECORDS SUMMARY | 2024-09-07 23:43 | XMS_ITS | Encounter Summary ---
Author Organization [facility] Medical Group Address [address] [address] Care Team Providers Care Missile Inspector Preflight Name Role Phone Jhonatan Bellamy MD Primary Care Provider +1- [phone] Encounter Details Date Type Department Care Team (Late st Contact Info) Description 09/11/2017 Telephone [facility] [address] [place] [address] Shira Bernstein RMA Social History Tobacco Use Types Packs/Day Years Used Date Smoking Tobacco: Never Smokeless Tobacco: Former Alcohol Use Standard Drinks/Week Comments No 0 (1 standard drink = 0.6 oz pur e alcohol) Sex and Gender Information Value Date Recorded Sex Assigned at Not on file Legal Sex Male 3:42 AM DISTRIBUTION TECHNICIAN Gender Identity Not on file Sexual Orientation Not on file documented as of this encounter Miscellaneous Notes * Telephone Encounter - Gaby Anderson RN - 09/11/2017 1:41 PM DISTRIBUTION TECHNICIAN I returned the call to annamarie. She is requesting copy of last office note. Note faxed to her at [phone]. She will call us back if she has any further questions after receiving the note. RIBUTION TECHNICIAN * Telephone Encounter - Shira Bernstein MA - 09/11/2017 11:13 AM CST Please give the pt a call in regards to the restrictions that the pt has been placed on. What activity can the pt do, or not do RIBUTION TECHNICIAN documented in this encounter Plan of Treatment Not on file documented as of this encounter Visit Diagnoses Not on filedocumented in this encounter Care Teams Missile Inspector Preflight Relationship Specialty Start Date End Date Jhonatan Bellamy MD [address] [place] [address] PCP - General 03/25/15 04/16/18 documented as of this encounter
--- OUTSIDE RECORDS SUMMARY | 2024-09-07 23:43 | XMS_ITS | Encounter Summary ---
Author Organization [facility] Medical Group Address [address] [facility] [address] [place] [address] Care Team Providers Care Fitter Tacker Name Role Phone Aditya Castro MD Primary Care Provider [phone] Encounter Details Date Type Department Care Team (Late st Contact Info) Description 02/01/2020 Orders Only [facility] Cardiology 6810 [facility] 162 [address] [place] [phone] Carrington Weeks MD [facility] [place] [id number] Social History Tobacco Use Types Packs/Day Years Used Date Smoking Tobacco: Never Smokeless Tobacco: Former Alcohol Use Standard Drinks/Week Comments No 0 (1 standard drink = 0.6 oz pur e alcohol) Sex and Gender Information Value Date Recorded Sex Assigned at Not on file Legal Sex Male 3:42 AM CARGO STATION WORKER Gender Identity Not on file [...] on filedocumented in this encounter Care Teams Fitter Tacker Relationship Specialty Start Date End Date Aditya Castro MD [address] [facility] [place] [address] PCP - General 10/17/19 documented as of this encounter
--- OUTSIDE RECORDS SUMMARY | 2024-09-07 23:43 | XMS_ITS | Encounter Summary ---
Author Organization [facility] Medical Group Address [address] [address] Care Team Providers Care Carriage Feeder Name Role Phone Jhonatan Bellamy MD Primary Care Provider [phone]- [phone] Encounter Details Date Type Department Care Team (Late st Contact Info) Description 08/28/2017 Telephone [facility] [address] [address] Abelardo Petit MD 0969 [facility] [address] [address] Social History Tobacco Use Types Packs/Day Years Used Date Smoking Tobacco: Never Smokeless Tobacco: Former Alcohol Use Standard Drinks/Week Comments No 0 (1 standard drink = 0.6 oz pur e alcohol) Sex and Gender Information Value Date Recorded Sex Assigned at Not on file Legal Sex Male 3:42 AM MAINTENANCE TECHNICIAN 2ND SHIFT Gender Identity Not on file Sexual Orientation Not on file documented as of this encounter Miscellaneous Notes * Telephone Encounter - Lisa Diaz RN - 08/28/2017 2:28 PM CST Told pt that paperwork will be at the restaurant front manager. TENANCE TECHNICIAN 2ND SHIFT documented in this encounter Plan of Treatment Not on file documented as of this encounter Visit Diagnoses Not on filedocumented in this encounter Care Teams Carriage Feeder Relationship Specialty Start Date End Date Jhonatan Bellamy MD [address] [place] [address] PCP - General 03/25/15 04/16/18 documented as of this encounter
--- OUTSIDE RECORDS SUMMARY | 2024-09-07 23:43 | XMS_ITS | Encounter Summary ---
Author Organization [facility] Medical Group Address [address] [address] Care Team Providers Care Awning Spreader Name Role Phone Jhonatan Bellamy MD Primary Care Provider +1- [phone] Encounter Details Date Type Department Care Team (Late st Contact Info) Description 05/25/2017 Telephone [facility] [address] [address] Abelardo Petit MD 6810 [facility] [address] [address] Social History Tobacco Use Types Packs/Day Years Used Date Smoking Tobacco: Never Smokeless Tobacco: Former Alcohol Use Standard Drinks/Week Comments No 0 (1 standard drink = 0.6 oz pur e alcohol) Sex and Gender Information Value Date Recorded Sex Assigned at Not on file 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 Claim number [id number]. Also pt needs note re FMLA (incident [id number]) stating pt's leave is extended to Jun. Fax [phone] Attention Marcelino Brock Told pt I will send the requested information today or tomorrow. documented in this encounter Plan of Treatment Not on file documented as of this encounter Visit Diagnoses Not on filedocumented in this encounter Care Teams Awning Spreader Relationship Specialty Start Date End Date Jhonatan Bellamy MD [address] [place] [address] PCP - General 03/25/15 04/16/18 documented as of this encounter
--- OUTSIDE RECORDS SUMMARY | 2024-09-07 23:43 | XMS_ITS | Encounter Summary ---
Author Organization [facility] Address [address] [place] [address] Phone Care Team Providers Care Supervisor Machine Setter Name Role Phone Jhonatan Bellamy MD Primary Care Provider +1- [phone] Reason for Visit * Reason Onset Date Comments Prior Auth 01/25/2018 colchicine 0.6mg Encounter Details Date Type Department Care Team (Late st Contact Info) Description 01/25/2018 Telephone [facility] Rheumatology [address] [facility] 5th [place] [address] [place] [address] Miguel Pelletier MD [address] [place], [place] [id number] Prior Auth (colchicine 0.6mg) Social History Tobacco Use Types Packs/Day Years Used Date Smoking Tobacco: Never Smokeless Tobacco: Former Alcohol Use Standard Drinks/Week Comments No 0 (1 standard drink = 0.6 oz pur e alcohol) Sex and Gender Information Value Date Recorded Sex Assigned at Not on file 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 I DID NOT SEE IN THE [employer] SYSTEM. THANKS SO MUCH. * Telephone Encounter [...] MONTHS. MR. GARVIN IS CURRENTLY COVERED BY [place] MEDICAID FOR ANOTHER 14 DAYS WITH THE TERM DATE ON 02/17/2018. ON HE WILL BE INSURED BY [employer] WHICH IS ANOTHER [place] MEDICAID MANAGED PLAN. SO WE WILL HAVE [...] MONTHS. MR. GARVIN IS CURRENTLY COVERED BY [place] MEDICAID FOR ANOTHER 14 DAYS WITH THE TERM DATE ON 02/17/2018. ON HE WILL BE INSURED BY [employer] WHICH IS ANOTHER [place] MEDICAID MANAGED PLAN. [...] filedocumented in this encounter Care Teams Supervisor Machine Setter Relationship Specialty Start Date End Date Jhonatan Bellamy MD [address] [place] [address] PCP - General 03/25/15 04/16/18 documented as of this encounter
--- OUTSIDE RECORDS SUMMARY | 2024-09-07 23:43 | XMS_ITS | Encounter Summary ---
Author Organization [facility] Medical Group Address [address] [address] Care Team Providers Care Verification Manager Name Role Phone Jhonatan Bellamy MD Primary Care Provider +1- [phone] Pedro Lakhani MD Primary Care Provider Eugenia Hughes MD Primary Care Provider +1- [phone] Aditya Castro MD Primary Care Provider [phone] Encounter Details Date Type Department Care Team (Late st Contact Info) Description 06/12/2017 Telephone [facility] [address] [address] Abelardo Petit MD [address] [address] Social History Tobacco Use Types Packs/Day Years Used Date Smoking Tobacco: Never Smokeless Tobacco: Former Alcohol Use Standard Drinks/Week Comments No 0 (1 standard drink = 0.6 oz pur e alcohol) Sex and Gender Information Value Date Recorded Sex Assigned at Not on file 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 Gender Identity Not on file Sexual Orientation Not on file documented as of this encounter Plan of Treatment Not on file documented as of this encounter Visit Diagnoses Not on filedocumented in this encounter Care Teams Verification Manager Relationship Specialty Start Date End Date Jhonatan Bellamy MD [address] [place] [address] PCP - General 03/25/15 04/16/18 Pedro Lakhani MD [address] [place] [address] PCP - General Family Practice 04/17/18 04/18/18 Eugenia Hughes MD [address] [place] [address] PCP - General Family Practice 04/19/18 10/16/19 Aditya Castro MD 619 [facility] [place] [address] PCP - General 10/17/19 documented as of this encounter
--- OUTSIDE RECORDS SUMMARY | 2024-09-07 23:43 | XMS_ITS | Encounter Summary ---
Author Organization [facility] Healthcare Address [address] [place] [address] Care Team Providers Care Aircraft Launch And Recovery Technician Name Role Phone Jhonatan Bellamy MD Primary Care Provider [phone]- [phone] Encounter Details Date Type Department Care Team (Latest Contact Info) Description 09/26/2017 11:05 AM HERD TESTER - 09/26/2017 2:33 PM [facility] Hospital Encounter [facility] OP INTERIM [phone] Corine Arriaga MD [address] [place] [address] Discharge Disposition: Discharge to home or self care Social History Tobacco Use Types Packs/Day Years Used Date Smoking Tobacco: Never Smokeless Tobacco: Former Alcohol Use Standard Drinks/Week Comments No 0 (1 standard drink = 0.6 oz pur e alcohol) Sex and Gender Information Value Date Recorded Sex Assigned at Not on file Legal Sex Male 3:42 AM HERD TESTER Gender Identity Not on file Sexual Orientation Not on file documented as of this encounter Medications at Time of Discharge aspirin 81 mg enteric coated tabletIndications: Myocardial Reinfarction Prevention Take 1 tablet (81 mg total) by mouth daily 11/07/2013 nitroglycerin (NITROSTAT) 0.4 mg SL tabletIndications: Coronary artery disease involving [place] coronary artery of [place] heart, angina presence unspecified Place 1 tablet [...] Zev - 09/26/2017 12:00 AM CST [facility] Patient: JUVENAL GARVIN Account: [id number] Room No: : 1970 Proc. Date: 09/26/2017 [...] Ring and implantation of +21 diopter Tecnis [id number] lens left eye. DESCRIPTION OF THE PROCEDURE [...] visually verifying that the 21 diopter Tecnis [id number] lens was the correct lens for this [...] Corine Arriaga MD On 09/26/2017 03:36 PM HERD TESTER Dorys RUBIO/ro TD: 09/26/2017 15:09 documented in this encounter Plan of Treatment Not on file documented as of this encounter Procedures Procedure Name Priority Date/Time Associated Diagnosis Comments GLUCOSE POC Routine 09/26/2017 1:24 PM HERD TESTER GLUCOSE POC Routine 09/26/2017 11:45 AM HERD TESTER DISCHARGE LABORATORY CUMULATIVE REPORT 09/26/2017 12:00 AM HERD TESTER documented in this encounter Results * Glucose POC (09/26/2017 1:24 PM HERD TESTER) Glucose, POC 121 70 - 199 mg/dL ALESSANDRA COLE Comment: Interpretive Data Glucose is assumed to be non-fasting. Fasting Glucose reference ranges are: 0 - 150 years: ??70 mg/dL - 99 mg/dL Current interpretive data was last revised on 2014. Blood specimen (specimen) 09/26/2017 1:24 PM HERD TESTER 09/26/2017 1:24 PM HERD TESTER Narrative ALESSANDRA COLE - 09/26/2017 1:38 PM HERD TESTER us Corine Arriaga MD POINT OF CARE TEST ORDERABLES Final Result Performing Organization Address City/State/[facility] Co de Phone Number [facility] [address] [facility] Department [place] [address] * Glucose POC (09/26/2017 11:45 AM HERD TESTER) Glucose, POC 130 70 - 199 mg/dL ALESSANDRA COLE Comment: Interpretive Data Glucose is assumed to be non-fasting. Fasting Glucose reference ranges are: 0 - 150 years: ??70 mg/dL - 99 mg/dL Current interpretive data was last revised on 2014. Blood specimen (specimen) 09/26/2017 11:45 AM HERD TESTER 09/26/2017 11:45 AM HERD TESTER Narrative ALESSANDRA [facility] - 09/26/2017 11:50 AM HERD TESTER us Corine Arriaga MD POINT OF CARE TEST ORDERABLES Final Result ALESSANDRA [facility] [id number] [facility]. Department [place] [address] * DISCHARGE LABORATORY CUMULATIVE REPORT (09/26/2017 12:00 AM HERD TESTER) Narrative 09/26/2017 12:00 AM HERD TESTER Ordered by an unspecified provider. us Historical Provider LAB BLOOD ORDERABLES Ann Marie l Result documented in this encounter Visit Diagnoses Not on filedocumented in this encounter Care Teams Aircraft Launch And Recovery Technician Relationship Specialty Start Date End Date Jhonatan Bellamy MD [address] [place], [place] [address] PCP - General 03/25/15 04/16/18 documented as of this encounter
--- OUTSIDE RECORDS SUMMARY | 2024-09-07 23:43 | XMS_ITS | Encounter Summary ---
Author Organization [facility] Medical Group Address [address] [facility] [address] [place] [address] Care Team Providers Care Senior Cobol Developer Name Role Phone Jhonatan Bellamy MD Primary Care Provider [phone]- [phone] Pedro Lakhani MD Primary Care Provider Eugenia Hughes MD Primary Care Provider +1- [phone] Aditya Castro MD Primary Care Provider [phone] Encounter Details Date Type Department Care Team (Late st Contact Info) Description 06/26/2017 Orders Only [facility] Cardiology [address] [facility] [address] [place] [address] Provider, MD Zev [address] [place] [address] Social History Tobacco Use Types Packs/Day Years Used Date Smoking Tobacco: Never Smokeless Tobacco: Former Alcohol Use Standard Drinks/Week Comments No 0 (1 standard drink = 0.6 oz pur e alcohol) Sex and Gender Information Value Date Recorded Sex Assigned at Not on file 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 Gender Identity Not on file Sexual [...] filedocumented in this encounter Care Teams Senior Cobol Developer Relationship Specialty Start Date End Date Jhonatan Bellamy MD [address] [place] [address] PCP - General 03/25/15 04/16/18 Pedro Lakhani MD [address] [place] [address] PCP - General Family Practice 04/17/18 04/18/18 Eugenia Hughes MD [address] [place] [address] PCP - General Family Practice 04/19/18 10/16/19 Aditya Castro MD [address] [facility] [place] [address] PCP - General 10/17/19 documented as of this encounter
--- OUTSIDE RECORDS SUMMARY | 2024-09-07 23:43 | XMS_ITS | Encounter Summary ---
Author Organization [facility] Healthcare Address [address] [place] [address] Care Team Providers Care Event Planning Intern Name Role Phone Jhonatan Bellamy MD Primary Care Provider [phone]- [phone] Encounter Details Date Type Department Care Team (Latest Contact Info) Description 09/19/2017 11:58 AM BARN AND PROPERTY MANAGER - 09/19/2017 4:33 PM [facility] [[email or web address] Hospital Encounter [facility] OP INTERIM [phone] Zully Arriaga MD [address] [place] [address] Discharge Disposition: Discharge to home or self care Social History Tobacco Use Types Packs/Day Years Used Date Smoking Tobacco: Never Smokeless Tobacco: Former Alcohol Use Standard Drinks/Week Comments No 0 (1 standard drink = 0.6 oz pur e alcohol) Sex and Gender Information Value Date Recorded Sex Assigned at Not on file Legal Sex Male 3:42 AM BARN AND PROPERTY MANAGER Gender Identity Not on file Sexual Orientation Not on file documented as of this encounter Medications at Time of Discharge aspirin 81 mg enteric coated tabletIndications: Myocardial Reinfarction Prevention Take 1 tablet (81 mg total) by mouth daily 11/07/2013 nitroglycerin (NITROSTAT) 0.4 mg SL tabletIndications: Coronary artery disease involving [place] coronary artery of [place] heart, angina presence unspecified Place 1 tablet [...] Comments GLUCOSE POC Routine 09/19/2017 1:07 PM BARN AND PROPERTY MANAGER DISCHARGE LABORATORY CUMULATIVE REPORT 09/19/2017 12:00 AM BARN AND PROPERTY MANAGER documented in this encounter Results * (ABNORMAL) Glucose POC (09/19/2017 1:07 PM BARN AND PROPERTY MANAGER) [facility] Glucose, POC 403(C) 70 - 199 mg/dL ALESSANDRA COLE Comment: Interpretive Data Glucose is assumed to be non-fasting. Fasting Glucose reference ranges are: 0 - 150 years: ??70 mg/dL - 99 mg/dL Current interpretive data was last revised on 2014. Glucose comment 1 RN/MD Notified ALESSANDRA COLE Blood specimen (specimen) 09/19/2017 1:07 PM BARN AND PROPERTY MANAGER 09/19/2017 1:07 PM BARN AND PROPERTY MANAGER Narrative ALESSANDRA COLE - 09/19/2017 1:15 PM BARN AND PROPERTY MANAGER Zully Arriaga MD POINT OF CARE TEST ORDERABLES Final Result ALESSANDRA [facility] [address] [facility]. Department [place] [address] * DISCHARGE LABORATORY CUMULATIVE REPORT (09/19/2017 12:00 AM BARN AND PROPERTY MANAGER) Narrative 09/19/2017 12:00 AM BARN AND PROPERTY MANAGER Ordered by an unspecified provider. Zev Provider LAB BLOOD ORDERABLES Ann Marie l Result documented in this encounter Visit Diagnoses Not on filedocumented in this encounter Care Teams Event Planning Intern Relationship Specialty Start Date End Date Jhonatan Bellamy MD [address] [place], [place] [address] PCP - General 03/25/15 04/16/18 documented as of this encounter
--- OUTSIDE RECORDS SUMMARY | 2024-09-07 23:43 | XMS_ITS | Encounter Summary ---
Author Organization [facility] Medical Group Address [address] [address] Care Team Providers Care Insulation Worker Furnace Installer Name Role Phone Jhonatan Bellamy MD Primary Care Provider [phone]- [phone] Encounter Details Date Type Department Care Team (Late st Contact Info) Description 08/11/2017 Telephone [facility] [address] [address] Abelardo Petit MD 6810 [facility] [address] [address] Social History Tobacco Use Types Packs/Day Years Used Date Smoking Tobacco: Never Smokeless Tobacco: Former Alcohol Use Standard Drinks/Week Comments No 0 (1 standard drink = 0.6 oz pur e alcohol) Sex and Gender Information Value Date Recorded Sex Assigned at Not on file Legal Sex Male 3:42 AM PATIENT COORDINATOR FRONT DESK Gender Identity Not on file Sexual Orientation Not on file documented as of this encounter Miscellaneous Notes * Telephone Encounter - Lisa Diaz RN - 08/11/2017 9:12 AM CST Noted ENT COORDINATOR FRONT DESK documented in this encounter Plan of Treatment Not on file documented as of this encounter Visit Diagnoses Not on filedocumented in this encounter Care Teams Insulation Worker Furnace Installer Relationship Specialty Start Date End Date Jhonatan Bellamy MD [address] [place] [address] PCP - General 03/25/15 04/16/18 documented as of this encounter
--- OUTSIDE RECORDS SUMMARY | 2024-09-07 23:43 | XMS_ITS | Encounter Summary ---
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 [phone] Dr. Hubbard documented in this encounter Medications [...] ANGIOGRAPHY AND WITH OR WITHOUT LEFT VENTRICULOGRAM [id number] Source Note - Hamlet Hubbard Jr., MD [...] that you and your doctor have chosen [facility] for your surgery. We hope that [...] doctor. ?? Use no cologne, make-up, nail tunisian, lotions, oils or powders on your skin. [...] glucose (01/21/2021 11:22 AM CDT) [facility] Signature Glucose, POC 306(H) 70 - 199 mg/dL [facility] Blood specimen (specimen) 01/21/2021 11:22 AM CDT 01/21/2021 11:22 AM CDT us Hamlet Hubbard Jr., MD LAB POCT ORDERABLES - D EVICE Final Result Performing Organization Address [facility] de Phone Number [facility] [address] of [address] [place] [address] * (ABNORMAL) POCT glucose (01/21/2021 10:10 AM CDT) Glucose, POC 242(H) 70 - 199 mg/dL [facility] Blood specimen (specimen) 01/21/2021 10:10 AM CDT 01/21/2021 10:10 AM CDT Hamlet Hubbard Jr., MD LAB POCT ORDERABLES - D EVICE Final Result Performing Organization Address [facility] de Phone Number [facility] [address] [place] [address] * LEFT HEART CATHETERIZATION WITH CORONARY ANGIOGRAPHY AND WITH AND WITHOUT LEFT VENTRICULOGRAM (01/21/2021 9:42 AM CDT) Anatomical Region Laterality Modality X-Ray Angiograph y 01/21/2021 Narrative 01/25/2021 10:30 AM CDT [employer] Job ID: [id number] [employer] Document ID: [id number] Dictated date/time: [id number] CATHETERIZATION REPORT PROCEDURE PERFORMED Left heart catheterization [...] placed in the left femoral artery. ??A 5-Mongolian #4 Kranthi left coronary catheter was advanced to left coronary ostium. ??Left arteriograms performed with normal projections. ??The catheter was removed and replaced with a 5-Mongolian #4 Kranthi right ?? coronary catheter which was advanced to right coronary ostium. ??Right coronary arteriograms were performed in multiple projections. ??This catheter was removed and exchanged for a 5-Mongolian pigtail catheter which was advanced to left [...] very pleasant gentleman. JOB ID/VF JOB ID: ??[id number] Hamlet Hubbard Jr., MD CV CARDIAC CATH PROCEDU RES Final Result * POCT glucose (01/21/2021 7:21 AM CDT) Glucose, POC 191 70 - 199 mg/dL [facility] Blood specimen (specimen) 01/21/2021 7:21 AM CDT 01/21/2021 7:21 AM CDT Hamlet Hubbard Jr., MD LAB POCT ORDERABLES - D EVICE Final Result [facility] [address] Department [place] [address] * POCT glucose (01/21/2021 6:59 AM CDT) Glucose, POC 157 70 - 199 mg/dL [facility] Blood specimen (specimen) 01/21/2021 6:59 AM CDT 01/21/2021 6:59 AM CDT Hamlet Hubbard Jr., MD LAB POCT ORDERABLES - D EVICE Final Result Performing Organization Address City/State/[facility] Phone Number [facility] [address] [facility] Department [place] [address] * (ABNORMAL) Lipid panel (01/21/2021 6:34 AM CDT) Cholesterol 166 30 - 199 mg/dL [facility] Comment: Interpretive Data Ages < [...] last revised on 2018. Chol/HDL ratio 5 [facility] Blood specimen (specimen) 01/21/2021 6:34 AM CDT 01/21/2021 6:38 AM CDT Hamlet Hubbard Jr., MD LAB BLOOD ORDERABLES Fi nal Result Performing Organization Address City/[facility] Co de Phone Number [facility] [address] Department [place] [address] * (ABNORMAL) POCT glucose (01/21/2021 6:23 AM CDT) Glucose, POC 66(L) 70 - 199 mg/dL [facility] Blood specimen (specimen) 01/21/2021 6:23 AM CDT 01/21/2021 6:23 AM CDT Hamlet Hubbard Jr., MD LAB POCT ORDERABLES - D EVICE Final Result Performing Organization Address [facility] Co de Phone Number [facility] [address] [place] [place] [address] documented in this encounter Visit Diagnoses Diagnosis [...] 01/21/2021 documented in this encounter Care Teams Book Cleaner Relationship Specialty Start Date End Date Aditya Castro MD [address] [facility] [place] [address] PCP - General 10/17/19 documented as of this encounter
--- OUTSIDE RECORDS SUMMARY | 2024-09-07 23:43 | XMS_ITS | Encounter Summary ---
Author Organization [facility] Medical Group Address [address] [facility] [address] [place] [address] Care Team Providers Care Recordak Operator Name Role Phone Eugenia Hughes MD Primary Care Provider [phone] Encounter Details Date Type Department Care Team (Late st Contact Info) Description 09/10/2019 Orders Only [facility] Cardiology [address] [facility] [address] [place] [id number] Luís Arizmendi MD [address] [place] [id number] Social History Tobacco Use Types Packs/Day Years Used Date Smoking Tobacco: Never Smokeless Tobacco: Former Alcohol Use Standard Drinks/Week Comments No 0 (1 standard drink = 0.6 oz pur e alcohol) Sex and Gender Information Value Date Recorded Sex Assigned at Not on file Legal 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
--- OUTSIDE RECORDS SUMMARY | 2024-09-07 23:43 | XMS_ITS | Encounter Summary ---
Author Organization [facility] Medical Group Address [address] [facility] [address] [place] [address] Care Team Providers Care Cream Beater Name Role Phone Jhonatan Bellamy MD Primary Care Provider [phone]- [phone] Reason for Visit * Reason Comments Hospital Follow Up 2 wk f/u Encounter Details Date Type Department Care Team (Late st Contact Info) Description 05/04/2017 1:30 PM CDT Office Visit [facility] [address] [address] Myrna Easton NP [address] [facility] [address] [address] Coronary artery disease involving [place] coronary artery of [place] heart, angina presence unspecified (Primary Dx); Status [...] on file Legal Sex Male 3:42 AM SCRUM PRODUCT OWNER Gender Identity Not on file Sexual Orientation [...] mg SL tabletIndications: Coronary artery disease involving [place] coronary artery of [place] heart, angina presence unspecified Place 1 tablet [...] vein DVT on 03/08/2017. He presented to [facility] on 04/15/[address] elevation [place]. He proceeded to the medical laboratory technician with Dr. Petit. He had [...] problems aside from that. He saw his cigar maker Dr. Reyes on 04/25/2017. He was given [...] communicating with each other. 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 He is and has 2 children. Records Reviewed this visit: Most recent [facility] admission records including cardiology consultation, [...] this visit: 1. Coronary artery disease involving [place] coronary artery of [place] heart, angina presence unspecified (Primary) - nitroglycerin [...] would prefer to discuss this with his cigar maker. I told the patient and his mother [...] 35 minutes visit were spent in direct [id number] consultation with the patient and his mother answering their questions, discussing his symptoms and course of treatment. 05/05/2017 Addendum: This morning I called the office of cigar maker Dr. Reyes and relayed a message to [...] Visit Diagnoses Diagnosis Coronary artery disease involving [place] coronary artery of [place] heart, angina presence unspecified- Primary Status post [...] 05/23/2017 added in this encounter Care Teams Cream Beater Relationship Specialty Start Date End Date Jhonatan Bellamy MD [address] [place] [address] PCP - General 03/25/15 04/16/18 documented as of this encounter
--- OUTSIDE RECORDS SUMMARY | 2024-09-07 23:43 | XMS_ITS | Encounter Summary ---
Author Organization [facility] Medical Group Address [address] [facility] [address] [place] [address] Care Team Providers Care Cast Shell Grinder Name Role Phone Aditya Castro MD Primary Care Provider [phone] Encounter Details Date Type Department Care Team (Late st Contact Info) Description 01/31/2020 Orders Only [facility] Medical Group Cardiology [address] [facility] [address] [address] Abelardo Petit MD [address] [facility] [address] [place] [address] Social History Tobacco Use Types Packs/Day Years Used Date Smoking Tobacco: Never Smokeless Tobacco: Former Alcohol Use Standard Drinks/Week Comments No 0 (1 standard drink = 0.6 oz pur e alcohol) Sex and Gender Information Value Date Recorded Sex Assigned at Not on file 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 Gender Identity Not on file Sexual Orientation Not on file documented as of this encounter Plan of Treatment Not on file documented as of this encounter Procedures Procedure Name Priority Date/Time Associated Diagnosis Comments CARDIOLOGY DOCUMENT SCAN Routine 01/31/2020 documented in this encounter Results * SCAN - CARDIOLOGY (01/31/2020) Anatomical Region Laterality Modality Other bAelardo Petit MD CV CARDIAC SERVICES PROC EDURES Final Result documented in this encounter Visit Diagnoses Not on filedocumented in this encounter Care Teams Cast Shell Grinder Relationship Specialty Start Date End Date Castro, Aditya, MD [address] [facility] [place] [place] [address] PCP - General 10/17/19 documented as of this encounter
--- OUTSIDE RECORDS SUMMARY | 2024-09-07 23:43 | XMS_ITS | Encounter Summary ---
Author Organization [facility] Address [address] [facility] [address] [place] [address] Care Team Providers Care Fruit Grading Supervisor Name Role Phone Aditya Castro MD Primary Care Provider [phone] Encounter Details Date Type Department Care Team (Late st Contact Info) Description 02/02/2020 Orders Only [facility] Cardiology [address] [facility] [address] [place] [phone] Carrington Weeks MD [facility] [place] [id number] Social History Tobacco Use Types Packs/Day Years Used Date Smoking Tobacco: Never Smokeless Tobacco: Former Alcohol Use Standard Drinks/Week Comments No 0 (1 standard drink = 0.6 oz pur e alcohol) Sex and Gender Information Value Date Recorded Sex Assigned at Not on file 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
--- OUTSIDE RECORDS SUMMARY | 2024-09-07 23:43 | XMS_ITS | Encounter Summary ---
Author Organization [facility] Address [address] [address] Care Team Providers Care Community Health Consultant Name Role Phone Jhonatan Bellamy MD Primary Care Provider [phone]- [phone] Encounter Details Date Type Department Care Team (Late st Contact Info) Description 11/09/2017 Telephone [facility] [address] [address] Abelardo Petit MD [address] [facility] [address] [address] Social History Tobacco Use Types Packs/Day Years Used Date Smoking Tobacco: Never Smokeless Tobacco: Former Alcohol Use Standard Drinks/Week Comments No 0 (1 standard drink = 0.6 oz pur e alcohol) Sex and Gender Information Value Date Recorded Sex Assigned at Not on file Legal Sex Male 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 This patient was seen this morning in the hospital at [facility]. He was admitted with some symptoms of shortness of breath and chest pain there were no new apparent cardiac problems and he is being discharged later today he does have significant renal failure with a creatinine of 2.9. His bottle selector should be in charge of managing his [...] at his job and his contacted a health care attorney. * Telephone Encounter - Gaby Anderson [...] ER with worsening symptoms. Advised contact his bottle selector as well. We will call back with our recommendations but he may end up getting a quicker response from bottle selector. Heverbalizes understanding. * Telephone Encounter - Angelita Mcgee - 11/09/2017 12:20 PM CDT Patient called office he is experiencing pain in chest and trouble breathing He states for a couple days documented in this encounter Plan of Treatment Not on file documented as of this encounter Visit Diagnoses Not on filedocumented in this encounter Care Teams Community Health Consultant Relationship Specialty Start Date End Date Jhonatan Bellamy MD [address] [place] [address] PCP - General 03/25/15 04/16/18 documented as of this encounter
--- OUTSIDE RECORDS SUMMARY | 2024-09-07 23:43 | XMS_ITS | Encounter Summary ---
Author Organization [facility] Address [address] [address] Care Team Providers Care Manager Of Employee Relations Name Role Phone Jhonatan Bellamy MD Primary Care Provider [phone] Encounter Details Date Type Department Care Team (Late st Contact Info) Description 06/08/2017 Telephone [facility] [address] [address] Abelardo Petit MD [address] [facility] [address] [address] Social History Tobacco Use Types Packs/Day Years Used Date Smoking Tobacco: Never Smokeless Tobacco: Former Alcohol Use Standard Drinks/Week Comments No 0 (1 standard drink = 0.6 oz pur e alcohol) Sex and Gender Information Value Date Recorded Sex Assigned at Not on file Legal 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
--- OUTSIDE RECORDS SUMMARY | 2024-09-07 23:43 | XMS_ITS | Encounter Summary ---
Author Organization [facility] Medical Group Address [address] [address] Care Team Providers Care Brass Finisher Name Role Phone Jhonatan Bellamy MD Primary Care Provider [phone] Encounter Details Date Type Department Care Team (Late st Contact Info) Description 06/09/2017 Telephone [facility] [address] [address] Abelardo Petit MD [address] [facility] [address] [address] Social History Tobacco Use Types Packs/Day Years Used Date Smoking Tobacco: Never Smokeless Tobacco: Former Alcohol Use Standard Drinks/Week Comments No 0 (1 standard drink = 0.6 oz pur e alcohol) Sex and Gender Information Value Date Recorded Sex Assigned at Not on file 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 documented in this encounter Plan of Treatment Not on file documented as of this encounter Visit Diagnoses Not on filedocumented in this encounter Care Teams Brass Finisher Relationship Specialty Start Date End Date Jhonatan Bellamy MD [address] [place] [address] PCP - General 03/25/15 04/16/18 documented as of this encounter
--- OUTSIDE RECORDS SUMMARY | 2024-09-07 23:43 | XMS_ITS | Encounter Summary ---
Author Organization [facility] Address [address] [facility] [address] [place] [address] Care Team Providers Care Mathematical Physicist Name Role Phone Jhonatan Bellamy MD Primary Care Provider [phone] Reason for Visit * Reason Comments Follow-up 2-3 week follow up o n CAD Encounter Details Date Type Department Care Team (Late st Contact Info) Description 05/23/2017 9:45 AM CDT Office Visit [facility] [address] [place] [address] Abelardo Petit MD [address] [facility] [address] [id number] 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[place] artery of [place] heart with stable angina pectoris (CMS/HCC) (Primary Dx); History of coronary artery stent placement Social History Tobacco Use Types Packs/Day Years Used Date Smoking Tobacco: Never Smokeless Tobacco: Former Alcohol Use Standard Drinks/Week Comments No 0 (1 standard drink = 0.6 oz pur e alcohol) Sex and Gender Information Value Date Recorded Sex Assigned at Not on file Legal Sex Male 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 He also has diffuse non flow limiting disease elsewhere. There shimon 80% ostial stenosis of a very small 1st marginal branch of his circumflex which is being treatedmedically. The patient's other comorbidities include hypertension advanced chronic kidney disease and longstanding diabetes. He has significant anemia of chronic disease as well. The patient was rehospitalized at [facility] in April of 2017 with some dyspnea [...] to work. 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
--- OUTSIDE RECORDS SUMMARY | 2024-09-07 23:43 | XMS_ITS | Encounter Summary ---
Author Organization [facility] Address [address] [address] Care Team Providers Care Window Shade Ring Sewer Name Role Phone Jhonatan Bellamy MD Primary Care Provider [phone]- [phone] Encounter Details Date Type Department Care Team (Late st Contact Info) Description 05/03/2017 Telephone [facility] [address] [address] Myrna Easton NP [address] [address] Social History Tobacco Use Types Packs/Day Years Used Date Smoking Tobacco: Never Assessed Sex and Gender Information Value Date Recorded Sex Assigned at Not on file Legal Sex Male 3: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 Pt also asked about chest tightness which he has had from time to time that reminds him of the discomfort he had withhis [place], but not near as severe. Patient said [...] CDT Pt ws taking Uloric before his [place], asked if it's OK to take . Told him I thought it should be Ok, but will double check with VP DIRECTOR OF FINANCE. documented in this encounter Plan of Treatment Not on file documented as of this encounter Visit Diagnoses Not on filedocumented in this encounter Care Teams Window Shade Ring Sewer Relationship Specialty Start Date End Date Jhonatan Bellamy MD [address] [place] [address] PCP - General 03/25/15 04/16/18 documented as of this encounter
--- OUTSIDE RECORDS SUMMARY | 2024-09-07 23:43 | XMS_ITS | Encounter Summary ---
Author Organization [facility] Medical [facility] Address [address] [facility] [address] [place] [address] Care Team Providers Care Artists' Model Name Role Phone Jhonatan Bellamy MD Primary Care Provider +1- [phone] Reason for Visit * Reason Comments Follow-up Encounter Details Date Type Department Care Team (Late st Contact Info) Description 09/13/2017 9:00 AM IRON PELLET TESTER Office Visit [facility] [address] [phone] Abelardo Petit MD [address] [place] [address] [phone] History of coronary artery stent placement (Primary Dx); Chronic kidney disease, stage III (moderate); 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[place] artery of [place] heart with stable angina pectoris (CMS/HCC) Social History Tobacco Use Types Packs/Day Years Used Date Smoking Tobacco: Never Smokeless Tobacco: Former Alcohol Use Standard Drinks/Week Comments No 0 (1 standard drink = 0.6 oz pur e alcohol) Sex and Gender Information Value Date Recorded Sex Assigned at Not on file Legal Sex Male 3:42 AM IRON PELLET TESTER Gender Identity Not on file Sexual Orientation Not on file documented as of this encounter Last Filed Vital Signs Vital Sign Reading Time Taken Comments Blood Pressure 126/48 09/13/2017 8:59 AM IRON PELLET TESTER Pulse 68 09/13/2017 8:59 AM IRON PELLET TESTER Temperature - - Respiratory Rate - - Oxygen Saturation 98% 09/13/2017 8:59 AM IRON PELLET TESTER Inhaled Oxygen Concentration - - Weight 117 kg (258 lb) 09/13/2017 8:59 AM IRON PELLET TESTER Height 177.8 cm (5' 10 ) 09/13/2017 8:59 AM IRON PELLET TESTER Body Mass Index 37.02 09/13/2017 8:59 AM IRON PELLET TESTER documented in this encounter Progress Notes * [...] enzyme evidence of a non ST elevation [place]. He underwent catheterization in 5 of was found to have high-grade stenosis in the distal right coronary artery bridging over the origin of the felt finishing supervisor lateral branch. He also had diffuse non [...] stage III (moderate) 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[place] artery of [place] heart with stable angina pectoris ([facility]) PLAN/RECOMMENDATIONS For now no change in medical [...] him lose his job. Abelardo Petit MD PELLET TESTER documented in this encounter Plan of Treatment Not on file documented as of this encounter Visit Diagnoses Diagnosis History of coronary artery stent placement- Primary Chronic kidney disease, stage III (moderate) (HCC) Chronic kidney disease, Stage III (moderate) 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[place] artery of [place] heart with stable angina pectoris (HCC) documented in this encounter Care Teams Artists' Model Relationship Specialty Start Date End Date Jhonatan Bellamy MD [address] [place] [address] PCP - General 03/25/15 04/16/18 documented as of this encounter
--- OUTSIDE RECORDS SUMMARY | 2024-09-07 23:44 | XMS_ITS | Encounter Summary ---
Author Organization [facility] Medical Group Address [address] [address] Care Team Providers Care Corporate Fitness Program Coordinator Name Role Phone Jhonatan Bellamy MD Primary Care Provider +1- [phone] Encounter Details Date Type Department Care Team (Late st Contact Info) Description 05/01/2017 Telephone [facility] [address] [place] [address] Myrna Easton NP [address] [facility] [address] [facility] [address] [place] [address] Social History Tobacco Use Types Packs/Day Years Used Date Smoking Tobacco: Never Assessed Sex and Gender Information Value Date Recorded Sex Assigned at Not on file Legal 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 Pt has appt with DRY END TESTER next week on May 11 . Told patient that RTW date will determined at that time. Patient said that they need clinical information sent also. Told patient that is an odd request, usually [facility]D faxes a form for completion or requests the needed info in writing, Pt did not havethe name of the person he spoke to at [facility], said it was an unusual name . Told patient to have [facility] fax a request for the needed info to make teresa ewe are supplying the appropriate information . Patient agreeable. documented in this encounter Plan of Treatment Not on file documented as of this encounter Visit Diagnoses Not on filedocumented in this encounter Care Teams Corporate Fitness Program Coordinator Relationship Specialty Start Date End Date Jhonatan Bellamy MD [address] [place] [address] PCP - General 03/25/15 04/16/18 documented as of this encounter
--- OUTSIDE RECORDS SUMMARY | 2024-09-07 23:44 | XMS_ITS | Encounter Summary ---
Author Organization [facility] Facility Care Team Providers Care Rubber Worker Name Role Phone Unavailable Primary Care Provider Unavailabl e Encounter Details Date Type Department Care Team (Late st Contact Info) Description 11/20/2014 9:06 PM CDT - 11/21/2014 7:54 AM CDT Hospital Encounter [facility] Abelardo Garcia MD [address] [facility] [address] [place] [address] Infective arthritis, hand (HCC); Type 2 or unspecified type diabetes mellitus; Hypertensive kidney disease with chronic kidney disease, stage 1-4; Chronic kidney disease; Encounter for long-term (current) use of other medications Social History Tobacco Use Types Packs/Day Years Used Date Smoking Tobacco: Never Assessed Sex and Gender Information Value Date Recorded Sex Assigned at Not on file Legal 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 ACC# ??Date Time ??Exam [id number] Jun 04, 2016 14:19:00 [id number] Elbow minimum 3 views L EXAMINATION: ?Left [...] represent olecranon bursitis. Requested By: MIRANDA BARILLAS RRTS Dictated By: ?? CASSIDY BARRAGAN M.D. ??on Jun 04 2016 ??4:09P This document has been electronically signed by: TONYA MILLER M.D. on Jun 04 2016 ??4:27P [id number] Procedure Note Provider, MD Zev - 12/27/2016 TONYA MILLER M.D. CASSIDY BARRAGAN M.D. FINAL REPORT The radiology attending physician has personally reviewed this study, and has reviewed and/or edited this written report and agrees with it. ACC# Date Time Exam [id number] Jun 04, 2016 14:19:00 [id number] Elbow minimum 3 views L EXAMINATION: Left [...] represent olecranon bursitis. Requested By: MIRANDA BARILLAS RRTS Dictated By: CASSIDY BARRAGAN M.D. on Jun 04 2016 4:09P This document has been electronically signed by: TONYA MILLER M.D. on Jun 04 2016 4:27P [id number] Historical Provider IMG XR PROCEDURES Final R esult * DISCHARGE LABORATORY CUMULATIVE REPORT (06/04/2016) Narrative 06/04/2016 Ordered by an unspecified provider. Historical Provider LAB BLOOD ORDERABLES Ann Marie l Result * Serum C-reactive protein (11/21/2014 3:03 AM CDT) C-RP 9.1 0.0 - 9.9 mg/L HISTORICAL RESULTS Serum 11/21/2014 3:03 AM CDT Kerry Chang MD LAB BLOOD ORDERABLES Final Result Performing Organization Address City/[facility] de Phone Number HISTORICAL RESULTS * (ABNORMAL) Plasma basic metabolic panel (11/21/2014 3:03 AM CDT) Pathologist [facility] Sodium 137 135 - 145 mmol/L HISTORICAL [...] Final Result Performing Organization Address [facility] de Phone Number HISTORICAL RESULTS * (ABNORMAL) Blood cell count (CBC) (11/21/2014 3:03 AM CDT) Pathologist [facility] WBC 7.1 3.8 - 9.8 K/cumm HISTORICAL [...] Final Result Performing Organization Address [facility] Co de Phone Number HISTORICAL RESULTS * (ABNORMAL) Blood erythrocyte sedimentation rate (ESR) (11/21/2014 3:03 AM CDT) Erythrocyte sedimentation rate 72.0(H) 0.0 - 12.0 mm/hr HISTORICAL RESULTS Blood specimen (specimen) 11/21/2014 3:03 AM CDT us Kerry Chang MD LAB BLOOD ORDERABLES Final Result Performing Organization Address [facility] Co de Phone Number HISTORICAL RESULTS * Discharge Laboratory Cumulative Report (11/21/2014 12:00 AM CDT) 11/21/2014 Narrative HISTORICAL RESULTS - 11/21/2014 3:20 PM CDT ?[facility] ?Department of Laboratories ? [address] [facility] [place] ? [place] [address] Patient Name: ??JUVENAL GARVIN [facility] Rec Number: [id number] Fin Number: ?[id number] Date: ?1970 Sex/Age: ? Male 44 years Admit Date: ?11/20/2014 Discharge Date: 11/21/2014 Doctor: ?Abelardo Garcia Facility: ?[facility] Location: ?[facility]S-21 Chart Printed: 11/21/2014 15:20 [...] ?Test: Neut Pct Auto ??Lymph Pct Auto ??[place] Pct Auto ? Reference: [38.7-74.5] ?[20.0-54.3] ? [4.3-13.5] ? Units: % ?% ? % 11/21/2014 ?? 03:03:00 ?? 43.7 ? 39.2 ?9.7 ?Test: Eos Pct Auto ??Baso Pct Auto ??Neut Abs Auto ? Reference: [0.0-6.0] ? [0.0-3.0] ?[1.8-6.6] ? Units: % ? % ?K/cumm 11/21/2014 ?? 03:03:00 ?? 6.3 ??H ?1.1 ?3.1 ?Test: Lymph Abs Auto ??[place] Abs Auto ??Eos Abs Auto ? Reference: [...] Blood beta-hydroxybutyrate (11/20/2014 9:18 PM CDT) Pathologist [facility] Beta-hydroxybu tyrate, sr 0.2 0.0 - 0.5 mmol/L HISTORICAL RESULTS Blood specimen (specimen) 11/20/2014 9:18 PM CDT Abelardo Garcia MD LAB BLOOD ORDERABLES Final Result Performing Organization Address [facility] de Phone Number HISTORICAL RESULTS * (ABNORMAL) Blood glucose, POC (11/20/2014 9:17 PM CDT) Pathologist [facility] Glucose, POC, bld 254(H) 70 - 199 mg/dl HISTORICAL RESULTS Blood specimen (specimen) 11/20/2014 9:17 PM CDT Historical Provider LAB BLOOD ORDERABLES Ann Marie l Result Performing Organization Address [facility] de Phone Number HISTORICAL RESULTS documented in this encounter Visit Diagnoses Diagnosis Infective arthritis, hand (HCC) Unspecified infective arthritis, hand Type 2 or unspecified type diabetes mellitus Hypertensive kidney disease with chronic kidney disease, stage 1-4 Chronic kidney disease Chronic kidney disease, unspecified Encounter for long-term (current) use of other medications documented in this encounter
--- OUTSIDE RECORDS SUMMARY | 2024-09-07 23:44 | XMS_ITS | Encounter Summary ---
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 Dictating: Ana Chao [...] Primary care physician equals Jhonatan Bellamy M.D. Ward Secretary equals Jonnie. MEDICATIONS: 1. Lantus 68 units [...] M.D. 11/06/2013 12:21 P Anurag Ojeda M.D. [facility] #[id number] Editing MT: TD: 11/05/2013 21:38:00 cc: Dorys [...] ORDERABL ES Final Result Performing Organization Address [facility] de Phone Number HISTORICAL RESULTS * (ABNORMAL) Blood glucose, POC (11/07/2013 8:49 AM CDT) Glucose, POC, bld 388(H) 70 - 199 mg/dl HISTORICAL RESULTS Blood specimen (specimen) 11/07/2013 8:49 AM CDT us Anurag Ojeda MD PhD LAB BLOOD ORDERABL ES Final Result Performing Organization Address [facility] de Phone Number HISTORICAL RESULTS * (ABNORMAL) Blood glucose, POC (11/07/2013 7:14 AM CDT) Glucose, POC, bld 328(H) 70 - 199 mg/dl HISTORICAL RESULTS Blood specimen (specimen) 11/07/2013 7:14 AM CDT us Anurag Ojeda MD PhD LAB BLOOD ORDERABL ES Final Result Performing Organization Address [facility] [address] [facility] de Phone Number HISTORICAL RESULTS * Discharge Laboratory Cumulative Report (11/07/2013 12:00 AM CDT) 11/07/2013 Narrative HISTORICAL RESULTS - 11/07/2013 3:25 PM CDT ?[facility] ?Department of Laboratories ? One [facility] [place] ? [place] [address] Patient Name: ??JUVENAL GARVIN [facility] Rec Number: [id number] Fin Number: ?[id number] Date: ?1970 Sex/Age: ? Male 43 years Admit Date: ?11/05/2013 Discharge Date: 11/07/2013 Doctor: ?[facility] , [address] Facility: ?[facility] Location: ?[id number] Chart Printed: 11/07/2013 15:25 ?? * Abnormal [...] TESTING children were not included. ??(Diabetes Care 31:7300-9478, 2008). ??The eAG is not equivalent to [...] for the diagnosis of myocardial infarction (Third [place] Definition of Myocardial Infarction. ??J Am Elena Cardiol 2012;60:1581-98). Current interpretive data was last revised on 13. ?URINALYSIS ?Macroscopic ?Test: Color ? Clarity ??Specific [place] ??pH ? Reference: [Yellow] ??[Clear] ??[1.003-1.030] ? [...] ?Test: Neut Pct Auto ??Lymph Pct Auto ??[place] Pct Auto ? Reference: [38.7-74.5] ?[20.0-54.3] ? [4.3-13.5] ? Units: % ?% ? % 11/05/2013 ?? 09:37:56 ?? 41.7 ? 41.2 ?12.4 ? AUTOMATED WHITE CELL DIFFERENTIAL ?Test: Eos Pct Auto ??Baso Pct Auto ??Neut Abs Auto ? Reference: [0.0-6.0] ? [0.0-3.0] ?[1.8-6.6] ? Units: % ? % ?K/cumm 11/05/2013 ?? 09:37:56 ?? 3.8 ? 0.9 ?2.4 ?Test: Lymph Abs Auto ??[place] Abs Auto ??Eos Abs Auto ? Reference: [...] updated copy of the Tool Book at [email or web address]://[email or web address]/pharmacy.nsf Current Interpretive Data was last [...] Ann Marie l Result Performing Organization Address [facility] de Phone Number HISTORICAL RESULTS * (ABNORMAL) Blood glucose, POC (11/06/2013 9:27 PM CDT) Glucose, POC, bld 402(H) 70 - 199 mg/dl HISTORICAL RESULTS Blood specimen (specimen) 11/06/2013 9:27 PM CDT Anurag Ojeda MD PhD LAB BLOOD ORDERABL ES Final Result Performing Organization Address [facility] de Phone Number HISTORICAL RESULTS * (ABNORMAL) Blood glucose, POC (11/06/2013 5:22 PM CDT) Glucose, POC, bld 388(H) 70 - 199 mg/dl HISTORICAL RESULTS Blood specimen (specimen) 11/06/2013 5:22 PM CDT Anurag Ojeda MD PhD LAB BLOOD ORDERABL ES Final Result Performing Organization Address [facility] de Phone Number HISTORICAL RESULTS * (ABNORMAL) Blood glucose, POC (11/06/2013 11:41 AM CDT) Glucose, POC, bld 373(H) 70 - 199 mg/dl HISTORICAL RESULTS Blood specimen (specimen) 11/06/2013 11:41 AM CDT Anurag Ojeda MD PhD LAB BLOOD ORDERABL ES Final Result Performing Organization Address [facility] de Phone Number HISTORICAL RESULTS * (ABNORMAL) Blood glucose, POC (11/06/2013 7:26 AM CDT) Glucose, POC, bld 304(H) 70 - 199 mg/dl HISTORICAL RESULTS Blood specimen (specimen) 11/06/2013 7:26 AM CDT Anurag Ojeda MD PhD LAB BLOOD ORDERABL ES Final Result Performing Organization Address [facility] de Phone Number HISTORICAL RESULTS * Serum troponin I (11/06/2013 6:12 AM CDT) Troponin I <0.03 0.00 - 0.03 ng/ml HISTORICAL RESULTS Comment: Interpretive Data Serial determinations are recommended for the diagnosis of myocardial infarction (Third [place] Definition of Myocardial Infarction. ??J Am Elena Cardiol 2012;60:1581-98). Current interpretive data was last revised on 13. Serum 11/06/2013 6:12 AM CDT Ana Chao IV, MD PhD LAB BLOOD ORDERA BLES Final Result Performing Organization Address [facility] de Phone Number HISTORICAL RESULTS * (ABNORMAL) Blood glucose, POC (11/06/2013 2:06 AM CDT) Glucose, POC, bld 329(H) 70 - 199 mg/dl HISTORICAL RESULTS Blood specimen (specimen) 11/06/2013 2:06 AM CDT us Anurag Ojeda MD PhD LAB BLOOD ORDERABL ES Final Result Performing Organization Address City/[facility] Co de Phone Number HISTORICAL RESULTS * Blood B-type natriuretic peptide (BNP) (11/05/2013 10:11 PM CDT) BNP 13 0 - 100 pg/ml HISTORICAL RESULTS Blood specimen (specimen) 11/05/2013 10:11 PM CDT Ana Cruz MD LAB BLOOD ORDERABLES Fi nal Result Performing Organization Address City/[facility] Co [...] and children were not included. ??(Diabetes Care 31:0988-5044, 2008). ??The eAG is not equivalent to a fasting glucose. Blood specimen (specimen) 11/05/2013 10:11 PM CDT Ana Cruz MD LAB BLOOD ORDERABLES Fi nal Result Performing Organization Address [facility] de Phone Number HISTORICAL RESULTS * Serum troponin I (11/05/2013 9:47 PM CDT) [facility] Troponin I <0.03 0.00 - 0.03 ng/ml HISTORICAL RESULTS Comment: Interpretive Data Serial determinations are recommended for the diagnosis of myocardial infarction (Third [place] Definition of Myocardial Infarction. ??J Am Elena Cardiol 2012;60:1581-98). Current interpretive data was last revised on 13. Serum 11/05/2013 9:47 PM CDT Ana Chao IV, MD PhD LAB BLOOD ORDERA BLES Final Result Performing Organization Address City/[facility] Co de Phone Number HISTORICAL RESULTS * (ABNORMAL) Blood glucose, POC (11/05/2013 9:16 PM CDT) Pathologist [facility] Glucose, POC, bld 397(H) 70 - 199 mg/dl HISTORICAL RESULTS Blood specimen (specimen) 11/05/2013 9:16 PM CDT Anurag Ojeda MD PhD LAB BLOOD ORDERABL ES Final Result Performing Organization Address [facility] de Phone Number HISTORICAL RESULTS * (ABNORMAL) Blood glucose, POC (11/05/2013 7:01 PM CDT) Glucose, POC, bld 331(H) 70 - 199 mg/dl HISTORICAL RESULTS Blood specimen (specimen) 11/05/2013 7:01 PM CDT us Ana Cruz MD LAB BLOOD ORDERABLES Fi nal Result Performing Organization Address [facility] Co de Phone Number HISTORICAL RESULTS * (ABNORMAL) Blood glucose, POC (11/05/2013 2:36 PM CDT) Glucose, POC, bld 203(H) 70 - 199 mg/dl HISTORICAL RESULTS Gluc, com 1, bld RN Notified HISTORICAL RESULTS Blood specimen (specimen) 11/05/2013 2:36 PM CDT us Historical Provider LAB BLOOD ORDERABLES Ann Marie l Result Performing Organization Address [facility] de Phone Number HISTORICAL RESULTS * (ABNORMAL) Serum iron profile (11/05/2013 2:30 PM CDT) [facility] Iron 32(L) 45 - 160 mcg/dl HISTORICAL RESULTS UIBC 210 mcg/dl HISTORICAL RESULTS TIBC 242 220 - 420 mcg/dl HISTORICAL RESULTS Transferrin saturation 13(L) 20 - 50 % HISTORICAL RESULTS Serum 11/05/2013 2:30 PM CDT us Kerry Martinez MD LAB BLOOD ORDERABLES Final Result Performing Organization Address [facility] de Phone Number HISTORICAL RESULTS * Serum troponin I (11/05/2013 2:30 PM CDT) Pathologist [facility] Troponin I <0.03 0.00 - 0.03 ng/ml HISTORICAL RESULTS Comment: Interpretive Data Serial determinations are recommended for the diagnosis of myocardial infarction (Third [place] Definition of Myocardial Infarction. ??J Am Elena Cardiol 2012;60:1581-98). Current interpretive data was last revised on 13. Serum 11/05/2013 2:30 PM CDT Kerry Martinez MD LAB BLOOD ORDERABLES Final Result Performing Organization Address [facility] de Phone Number HISTORICAL RESULTS * Serum ferritin (11/05/2013 2:30 PM CDT) Ferritin 110 22 - 322 ng/ml HISTORICAL RESULTS Serum 11/05/2013 2:30 PM CDT Result [facility] Kerry Martinez MD LAB BLOOD ORDERABLES Final Result Performing Organization Address [facility] de Phone Number HISTORICAL RESULTS [...] ORDERABLES Fi nal Result Performing Organization Address [facility] de Phone Number HISTORICAL RESULTS [...] CDT Ana Cruz MD LAB BLOOD ORDERABLES [facility] Result Performing Organization Address [facility] de Phone Number HISTORICAL RESULTS [...] CDT Ana Cruz MD LAB BLOOD ORDERABLES [facility] Result Performing Organization Address [facility] de Phone Number HISTORICAL RESULTS [...] ORDERABLES Fi nal Result Performing Organization Address [facility] Co de Phone Number HISTORICAL RESULTS * Serum troponin I (11/05/2013 9:37 AM CDT) Troponin I <0.03 0.00 - 0.03 ng/ml HISTORICAL RESULTS Comment: Interpretive Data Serial determinations are recommended for the diagnosis of myocardial infarction (Third [place] Definition of Myocardial Infarction. ??J Am Elena Cardiol 2012;60:1581-98). Current interpretive data was last revised on 13. Serum 11/05/2013 9:37 AM CDT Ana Cruz MD LAB BLOOD ORDERABLES nal Result Performing Organization Address [facility] de Phone Number HISTORICAL RESULTS [...] updated copy of the Tool Book at [email or web address]/pharmacy.nsf Current Interpretive Data was last revised 2011. [...] agrees with it. ACC# ??Date Time ??Exam [id number] Nov 05, 2013 09:15:00 [id number] Chest 2 views Frontl & Lat EXAMINATION: [...] agrees with it. ACC# Date Time Exam [id number] Nov 05, 2013 09:15:00 [id number] Chest 2 views Frontl & Lat EXAMINATION: [...] MURPHY M.D. on Nov 05 2013 10:39A [facility] Provider IMG XR PROCEDURES Final R esult * ELECTROCARDIOGRAPHY (ECG) (11/05/2013) Narrative 11/05/2013 Ordered by an unspecified provider. [facility] Provider ECG ORDERABLES Final Res ult * ELECTROCARDIOGRAPHY (ECG) (11/05/2013) Narrative 11/05/2013 Ordered by an unspecified provider. [facility] Provider ECG ORDERABLES Final Res ult * ELECTROCARDIOGRAPHY (ECG) (11/05/2013) Narrative 11/05/2013 Ordered by an unspecified provider. [facility] Provider ECG ORDERABLES Final Res ult [...]
--- OUTSIDE RECORDS SUMMARY | 2024-09-07 23:44 | XMS_ITS | Encounter Summary ---
Author Organization [facility] Facility Care Team Providers Care Senior Packaging Engineer Name Role Phone Unavailable Primary Care Provider Unavailabl e Encounter Details Date Type Department Care Team (Late st Contact Info) Description 01/25/2011 - 08/20/2011 11:59 PM JERSEY KNITTER Hospital Encounter [facility] Social History Tobacco Use Types Packs/Day Years Used Date Smoking Tobacco: Never Assessed Sex and Gender Information Value Date Recorded Sex Assigned at Not on file Legal Sex Male 3:42 AM JERSEY KNITTER Gender Identity Not on file Sexual Orientation Not on file documented as of this encounter Plan of Treatment Not on file documented as of this encounter Visit Diagnoses Not on filedocumented in this encounter
--- OUTSIDE RECORDS SUMMARY | 2024-09-07 23:44 | XMS_ITS | Encounter Summary ---
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
--- OUTSIDE RECORDS SUMMARY | 2024-09-07 23:44 | XMS_ITS | Encounter Summary ---
Author Organization [facility] Facility Care Team Providers Care Bottom Sander Name Role Phone Jhonatan Bellamy MD Primary Care Provider [phone]- [phone] Encounter Details Date Type Department Care Team (Late st Contact Info) Description 06/04/2016 12:36 PM CDT - 06/04/2016 4:36 PM CDT Hospital Encounter [facility] CLINCONJuanito Wei MD [address] [facility] [address] [place] [id number] Olecranon bursitis of left elbow Social History Tobacco Use Types Packs/Day Years Used Date Smoking Tobacco: Never Assessed Sex and Gender Information Value Date Recorded Sex Assigned at Not on file 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
--- OUTSIDE RECORDS SUMMARY | 2024-09-07 23:44 | XMS_ITS | Encounter Summary ---
Author Organization [facility] Healthcare Address [address] [place] [address] Care Team Providers Care Collective Bargaining Specialist Name Role Phone Jhonatan Bellamy MD Primary Care Provider [phone]- [phone] Encounter Details Date Type Department Care Team (Late st Contact Info) Description 04/28/2017 4:41 PM CDT - 04/28/2017 11:59 PM CDT Hospital Encounter 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 Historical Provider LAB BLOOD ORDERABLES Ann Marie l Result documented in this encounter Visit Diagnoses Not on filedocumented in this encounter Care Teams Collective Bargaining Specialist Relationship Specialty Start Date End Date Jhonatan Bellamy MD [address] [place] [address] PCP - General 03/25/15 04/16/18 documented as of this encounter
--- OUTSIDE RECORDS SUMMARY | 2024-09-07 23:44 | XMS_ITS | Encounter Summary ---
Author Organization 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 Gender Identity Not on file Sexual [...] COMPLEMENT Routine 03/26/2015 5:00 PM CDT SERUM [id number] I, IGA Routine 03/26/2015 5:00 PM CDT SERUM [id number] I IGM Routine 03/26/2015 5:00 PM CDT SERUM ANTINUCLEAR AB (SHAWN) Routine 03/26/2015 5:00 PM CDT SERUM ANTI-EXTRACTABLE NUCLEAR AG (JOSE ENRIQUE), SS-B AB Routine 03/26/2015 5:00 PM CDT SERUM ANTI-EXTRACTABLE NUCLEAR AG (JOSE ENRIQUE), SS-A AB Routine 03/26/2015 5:00 PM CDT SERUM ANTI-EXTRACTABLE NUCLEAR AG (JOSE ENRIQUE), SM/STEEL ROD BUSTER AB Routine 03/26/2015 5:00 PM CDT SERUM [...] Serum 03/26/2015 5:00 PM CDT Yamilet Valerio [place] LAB BLOOD ORDERABLES Fin al Result Performing Organization Address [facility] de Phone Number HISTORICAL RESULTS * Blood HLA B-27 DNA typing (03/26/2015 5:00 PM CDT) Pathologist [facility] HLA-B27 ag B27 is Negative HISTORICAL RESULTS Comment: HLA oligotyping is determined utilizing polymerase chain reaction technology. ??Low resolution typing is performed using sequence specific primers (SSP) and Luminex based r-SSO. ??High resolution technology is performed using Vanzant Sequenced Based Typing (SBT). ??SSP, Luminex rSSO and SBT are designated IVD by the U.S. Food and Drug Administration. Mark Cabrera Ph.D. Director, HLA Laboratory. Miscellaneous 03/26/2015 5:0 0 PM CDT [facility] Fin al Result Performing Organization Address [facility] de Phone Number HISTORICAL RESULTS * Serum Hepatitis B core ab (03/26/2015 5:00 PM CDT) Pathologist [facility] HBV core ab Negative Negative HISTORIC AL RESULTS Serum 03/26/2015 5:00 PM CDT Result [facility] LAB BLOOD ORDERABLES Fin al Result Performing Organization Address [facility] de Phone Number HISTORICAL RESULTS * Serum anti-extractable nuclear ag (JOSE ENRIQUE), SS-B ab (03/26/2015 5:00 PM CDT) Pathologist [facility] Anti-JOSE ENRIQUE, SS-B <1.0 NEG <1.0NEG AI HISTORICAL RESULTS Comment: Test performed at [employer] [facility] [address] [place], [place] ??[phone] ANA REYES DO,MPH Serum 03/26/2015 5:00 PM CDT Yamilet Valerio [place] LAB BLOOD ORDERABLES Fin al Result Performing Organization Address [facility] de Phone Number HISTORICAL RESULTS * Serum anti-extractable nuclear ag (JOSE ENRIQUE), SS-A ab (03/26/2015 5:00 PM CDT) Anti-JOSE ENRIQUE, SS-A <1.0 NEG <1.0NEG AI HISTORICAL RESULTS Comment: Test performed at [employer] [id number] [place], [place] ??[phone] ANA REYES DO,MPH Serum 03/26/2015 5:00 PM CDT Yamilet Valerio [place] LAB BLOOD ORDERABLES Fin al Result Performing Organization Address [facility] de Phone Number HISTORICAL RESULTS * Serum antinuclear ab (SHAWN) (03/26/2015 5:00 PM CDT) Pathologist [facility] SHAWN, qual Negative NEGATIVE HISTORICAL RESULTS Comment: Test performed at [employer] [address] ??[phone] ANA REYES DO,MPH Serum 03/26/2015 5:00 PM CDT Yamilet Valerio [place] LAB BLOOD ORDERABLES Fin al Result Performing Organization Address [facility] de Phone Number HISTORICAL RESULTS [...] ??The following results were obtained with the Synchro QUANTLiteTM IgG and IgM III ABRAHAM. ??Cardiolipin [...] ??The following results were obtained with the Synchro QUANTLiteTM IgA III ABRAHAM. ??Caridolipin IgA values [...] Serum 03/26/2015 5:00 PM CDT Yamilet Valerio [place] LAB BLOOD ORDERABLES Fin al Result Performing Organization Address [facility] de Phone Number HISTORICAL RESULTS * Serum anti-extractable nuclear ag (JOSE ENRIQUE), SM/STEEL ROD BUSTER ab (03/26/2015 5:00 PM CDT) Pathologist [facility] Anti-JOSE ENRIQUE, SM <1.0 NEG <1.0NEG AI HISTORICAL RESULTS JOSE ENRIQUE, SM/STEEL ROD BUSTER Ab <1.0 NEG <1.0NEG AI HISTORICAL RESULTS Comment: Test performed at [employer] [facility] [address] [place], [place] ??[phone] ANA REYES DO,MPH Serum 03/26/2015 5:00 PM CDT Yamilet Valerio [place] LAB BLOOD ORDERABLES Fin al Result Performing Organization Address [facility] de Phone Number HISTORICAL RESULTS * Serum Trinidad-1 ab (03/26/2015 5:00 PM CDT) Pathologist [facility] Anti-TRINIDAD-1 <1.0 NEG <1.0NEG AI HISTORICAL RESULTS Comment: Test performed at [facility] [employer] [address] ??[phone] ANA REYES DO,MPH Serum 03/26/2015 5:00 PM CDT Yamilet Woodall Iman [place] LAB BLOOD ORDERABLES Fin al Result Performing Organization Address [facility] de Phone Number HISTORICAL RESULTS * Serum double-stranded DNA ab (03/26/2015 5:00 PM CDT) [facility] Anti-double stranded DNA, quant 2 IUnits/ml HISTORIC AL RESULTS Comment: IU/mL ? Interpretation ? < or = 4 ?Negative ? 5-9 ? Indeterminate ? > or = 10 ?? Positive Test performed at [employer] [address] ??[phone] ANA REYES DO,MPH Serum 03/26/2015 5:00 PM CDT Yamilet Woodall I[place] LAB BLOOD ORDERABLES Fin al Result Performing Organization Address [facility] de Phone Number HISTORICAL RESULTS * Serum uaef-8-zrqqzvbuklpn I IgM (03/26/2015 5:00 PM CDT) [facility] Beta-2 glycoprotein I, IgM <4.0 <10.0(Nega tive) Units/ml HISTORICAL RESULTS Beta-2 glycoprotein I, IgG <4.0 <10.0(Nega tive) Units/ml HISTORICAL RESULTS Serum 03/26/2015 5:00 PM CDT Yamilet Shuklaricky [place] LAB BLOOD ORDERABLES Fin al Result Performing Organization Address [facility] de Phone Number HISTORICAL RESULTS * (ABNORMAL) Serum angiotensin-converting enzyme (NICOLÁS) (03/26/2015 5:00 PM CDT) NICOLÁS 8(L) 10 - 55 Units/L HISTORICAL RESULTS Serum 03/26/2015 5:00 PM CDT Result [facility] Yamilet Hernándezeaston [place] LAB BLOOD ORDERABLES Fin al Result Performing Organization Address [facility] de Phone Number HISTORICAL RESULTS [...] updated copy of the Tool Book at [email or web address] [email or web address]/[email or web address] Current Interpretive Data was last [...] Result Performing Organization Address [facility] de Phone Number HISTORICAL RESULTS * Serum Rpto-2-vgwtugggqpyr I, IgA (03/26/2015 5:00 PM CDT) [facility] Beta-2 glycoprotein I, IgA <4.0 <10.0(Nega tive) Units/ml HISTORICAL RESULTS Serum 03/26/2015 5:00 PM CDT Result [facility] Yamilet Calixchase [place] LAB BLOOD ORDERABLES Fin al Result Performing Organization Address [facility] de Phone Number HISTORICAL RESULTS * Serum rheumatoid factor (03/26/2015 5:00 PM CDT) Pathologist [facility] Rheumatoid factor, quant 10 <14 IUnits/ml HISTORICAL RESULTS Comment: Test performed at [employer] [address] ??[phone] ANA REYES DO,MPH Serum 03/26/2015 5:00 PM CDT Result [facility] LAB BLOOD ORDERABLES Fin al Result Performing Organization Address [facility] Phone Number HISTORICAL RESULTS * Serum cyclic citrullinated peptide IgG 3rd generation (03/26/2015 5:00 PM CDT) [facility] CCP3 IgG <15.6 0.0 - 19.0 units HISTORICAL RESULTS Comment: Interpretive Data The following results were obtained with the Synchro Quanta Lite CCP3 IgG ABRAHAM. ??Anti-CCP values [...] Serum 03/26/2015 5:00 PM CDT Yamilet Valerio [place] LAB BLOOD ORDERABLES Fin al Result Performing Organization Address [facility] de Phone Number HISTORICAL RESULTS * (ABNORMAL) Serum complement (03/26/2015 5:00 PM CDT) Complement hemolytic 161(H) 63 - 145 HISTORICAL RESULTS Serum 03/26/2015 5:00 PM CDT Yamilet Valerio [place] LAB BLOOD ORDERABLES Fin al Result Performing Organization Address [facility] de Phone Number HISTORICAL RESULTS * (ABNORMAL) Blood erythrocyte sedimentation rate (ESR) (03/26/2015 5:00 PM CDT) Pathologist [facility] Erythrocyte sedimentation rate 16.0(H) 0.0 - 10.0 mm/hr HISTORICAL RESULTS Blood specimen (specimen) 03/26/2015 5:00 PM CDT Yamilet Valerio [place] LAB BLOOD ORDERABLES Fin al Result Performing Organization Address [facility] de Phone Number HISTORICAL RESULTS * [...] Blood specimen (specimen) 03/26/2015 5:00 PM CDT [facility] Talisha Hernándezmiricky [place] LAB BLOOD ORDERABLES Fin al Result Performing Organization Address [facility] de Phone Number HISTORICAL RESULTS [...] HISTORICAL RESULTS Urine 03/26/2015 5:00 PM CDT [facility] Talisha Valerio [place] LAB BLOOD ORDERABLES Fin al Result Performing Organization Address [facility] de Phone Number HISTORICAL RESULTS [...] RESULTS Urine 03/26/2015 5:00 PM CDT Result [facility] Yamilet Calixchase [place] LAB BLOOD ORDERABLES Fin al Result Performing Organization Address [facility] de Phone Number HISTORICAL RESULTS * Serum Hepatitis B surface ag (03/26/2015 5:00 PM CDT) HBV surface ag Non-Reacti ve Non-Reacti ve HISTORICAL RESULTS Serum 03/26/2015 5:00 PM CDT Result [facility] Yamilet Shuklaricky [place] LAB BLOOD ORDERABLES Fin al Result Performing Organization Address [facility] de Phone Number HISTORICAL RESULTS * Serum Hepatitis C ab (03/26/2015 5:00 PM CDT) HCV ab Non-Reacti ve Non-Reacti ve HISTORICAL RESULTS Serum 03/26/2015 5:00 PM CDT Result [facility] Yamilet Shuklaricky [place] LAB BLOOD ORDERABLES Fin al Result Performing Organization Address [facility] de Phone Number HISTORICAL RESULTS * [...] 09/27/2011, C-Reactive Protein testing is performed at [facility]. The Reference Range has changed. Plasma 03/26/2015 5:00 PM CDT Yamilet [facility] LAB BLOOD ORDERABLES Fin al Result HISTORICAL RESULTS * Plasma creatine kinase (CK) (03/26/2015 5:00 PM CDT) CK 297 49 - 397 IUnits/L HISTORICAL RESULTS Plasma 03/26/2015 5:00 PM CDT Yamilet Shuklarciky [facility] LAB BLOOD ORDERABLES Fin al Result Performing Organization Address [facility] Phone Number HISTORICAL RESULTS * (ABNORMAL) Plasma complement C4 (03/26/2015 5:00 PM CDT) Complement C4 78(H) 18 - 55 mg/dl HISTORICAL RESULTS Comment:Please Note: As of N 2011, the reference range has changed. Plasma 03/26/2015 5:00 PM CDT Yamilet [facility] LAB BLOOD ORDERABLES Fin al Result Performing Organization Address [facility] Phone Number HISTORICAL RESULTS * (ABNORMAL) Plasma uric acid (03/26/2015 5:00 PM CDT) Uric acid 12.3(H) 3.5 - 8.5 mg/dl HISTORICAL RESULTS Plasma 03/26/2015 5:00 PM CDT Result [facility] Yamilet Shuklaricky [facility] LAB BLOOD ORDERABLES Fin al Result Performing Organization Address [facility] Phone Number HISTORICAL RESULTS * Plasma complement C3 (03/26/2015 5:00 PM CDT) Complement C3 140 79 - 152 mg/dl HISTORICAL RESULTS Plasma 03/26/2015 5:00 PM CDT Result [facility] Yamilet Woodall Iman [facility] LAB BLOOD ORDERABLES Fin al Result Performing Organization Address [facility] de Phone Number HISTORICAL RESULTS * Blood direct antiglobulin test (03/26/2015 5:00 PM CDT) Maribel, direct, IgG Negative HISTORICAL RESULTS Maribel, direct, complement Negative HISTORICAL RESULTS Blood specimen (specimen) 03/26/2015 5:00 PM CDT Result [facility] Yamilet Woodall Iman [facility] LAB BLOOD ORDERABLES Fin al Result HISTORICAL RESULTS * DISCHARGE LABORATORY CUMULATIVE REPORT (03/26/2015) Narrative 03/26/2015 Ordered by an unspecified provider. us Historical Provider LAB BLOOD ORDERABLES Ann Marie l Result documented in this encounter Visit Diagnoses Diagnosis Arthropathy Unspecified arthropathy, site unspecified documented in this encounter Care Teams Vp Scientific Relationship Specialty Start Date End Date Jhonatan Bellamy MD [address] [place], [place] [id number] PCP - General 03/25/15 04/16/18 documented as of this encounter
--- OUTSIDE RECORDS SUMMARY | 2024-09-07 23:44 | XMS_ITS ---
Author Organization [facility] Address [address] [place] [address] Care Team Providers Care Jointer Machine Operator Name Role Phone Aditya Castro MD Primary Care Provider [phone] Alondra Lambert RN Unavailable [phone] Shannon Brock MD, [place] P. Unavailable [phone] Leandro Reyes MD Unavailable [phone] Transplant Episode Kidney Candidate [facility] ([place], [place]) [facility] Evaluation began on 05/10/2024 Marked as Active on 05/10/2024 Reason: Evaluation - Standard Kidney CoordinatorAlondra Lambert RN Fax: N/A Email: N/A Scores Score Value Updated Exceptions/Reas ons CPRA Not available EPTS (Calc) 78 09/07/2024 Care Team Name Role Phone Fax Email Alondra Lambert RN Kidney Coordinator [phone] N/A N/A Melany Kelly Primary Glass Installer N/A N/A N/A Chris Richard Cryptologic Technician Operator/Analyst N/A N/A N/A Events Pre-Transplant Referred: 03/06/2024 Evaluation began: 05/10/2024 Dialysis History Dialysis History Start End Type Comments Center 10/16/2019 Peritoneal [facility] D[facility] Information Center Phone Fax Address [facility] [phone] [address] [facility] [address] [facility] [address]
--- OUTSIDE RECORDS SUMMARY | 2024-09-07 23:44 | XMS_ITS | Encounter Summary ---
Author Organization [facility] Facility Care Team Providers Care Creative Assistant Name Role Phone Unavailable Primary Care Provider Unavailabl e Encounter Details Date Type Department Care Team (Late st Contact Info) Description 02/03/2015 - 02/03/2015 11:59 PM CDT [facility] [address] [place] [address] Pain in soft tissues of limb Social History Tobacco Use Types Packs/Day Years Used Date Smoking Tobacco: Never Assessed Sex and Gender Information Value Date Recorded Sex Assigned at Not on file 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 No Client Account Number and Description: Byron Castillo MD LAB BLOOD ORDERABLES Ann Marie l Result Performing Organization Address [facility] de Phone Number HISTORICAL RESULTS * (ABNORMAL) Serum uric acid (02/03/2015 10:35 AM CDT) Uric acid 11.3(H) 3.0 - 8.0 mg/dl HISTORICAL RESULTS Serum 02/03/2015 10:3 5 AM CDT Narrative HISTORICAL RESULTS - 02/03/2015 12:32 PM CDT Client / Account bill? No Client Account Number and Description: Byron Castillo MD LAB BLOOD ORDERABLES Ann Marie l Result Performing Organization Address [facility] Co de Phone Number HISTORICAL RESULTS [...] quantitative (02/03/2015 10:35 AM CDT) Pathologist [facility] Rheumatoid factor, quant <10 0 - 15 IUnits/ml HISTORICAL RESULTS Serum 02/03/2015 10:3 5 AM CDT Narrative HISTORICAL RESULTS - 02/04/2015 3:38 AM CDT Client / Account bill? No Client Account Number and Description: Byron Castillo MD LAB BLOOD ORDERABLES Ann Marie l Result Performing Organization Address City/[facility] Co de Phone Number HISTORICAL RESULTS * Serum cyclic citrullinated peptide IgG 3rd generation (02/03/2015 10:35 AM CDT) Pathologist [facility] CCP3 IgG <15.6 0.0 - 19.0 units HISTORICAL RESULTS Comment: Interpretive Data The following results were obtained with the [employer] Quanta Lite CCP3 IgG ABRAHAM. ??Anti-CCP values [...]
--- OUTSIDE RECORDS SUMMARY | 2024-09-07 23:44 | XMS_ITS | Encounter Summary ---
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
--- OUTSIDE RECORDS SUMMARY | 2024-09-07 23:44 | XMS_ITS | Encounter Summary ---
Author Organization [facility] Healthcare Address [address] [place] [address] Care Team Providers Care Television Anchor Name Role Phone Jhonatan Bellamy MD Primary Care Provider [phone] Encounter Details Date Type Department Care Team (Latest Contact Info) Description 03/21/2017 6:43 AM CDT - 03/24/2017 7:37 PM CDT Hospital Encounter [facility] ADMIT [address] [place] [address] Eloise Coulter MD [address], [place] [id number] Discharge Disposition: Discharge to home or self care Social History Tobacco Use Types Packs/Day Years Used Date Smoking Tobacco: Never Assessed Sex and Gender Information Value Date Recorded Sex Assigned at Not on file Legal Sex Male 3:42 AM [employer] Gender Identity Not on file Sexual [...] Glucose POC (03/24/2017 1:42 PM CDT) Pathologist [facility] Department Glucose, POC 121 70 - 199 mg/dL [facility] Blood specimen (specimen) 03/24/2017 1:42 PM CDT 03/24/2017 1:42 PM CDT Eloise Coulter MD POINT OF CARE TEST ORDERABLES Final Result Performing Organization Address [facility] de Phone Number [facility] [place] [address] * Glucose POC (03/24/2017 1:07 PM CDT) Glucose, POC 95 70 - 199 mg/dL [facility] Blood specimen (specimen) 03/24/2017 1:07 PM CDT 03/24/2017 1:07 PM CDT Eloise Coulter MD POINT OF CARE TEST ORDERABLES Final Result Performing Organization Address [facility] de Phone Number [facility] Department [place] [address] * Glucose POC (03/24/2017 12:48 PM CDT) Glucose, POC 81 70 - 199 mg/dL [facility] Blood specimen (specimen) 03/24/2017 12:48 PM CDT 03/24/2017 12:48 PM CDT Eloise Coulter MD POINT OF CARE TEST ORDERABLES Final Result Performing Organization Address [facility] [place] [address] * (ABNORMAL) Glucose POC (03/24/2017 12:22 PM CDT) Glucose, POC 54(L) 70 - 199 mg/dL [facility] Blood specimen (specimen) 03/24/2017 12:22 PM CDT 03/24/2017 12:22 PM CDT us Eloise Coulter MD POINT OF CARE TEST ORDERABLES Final Result Performing Organization Address City/[facility] Co de Phone Number [facility] [place] [address] * (ABNORMAL) Glucose POC (03/24/2017 7:57 AM CDT) Glucose, POC 231(H) 70 - 199 mg/dL [facility] Blood specimen (specimen) 03/24/2017 7:57 AM CDT 03/24/2017 7:57 AM CDT us Eloise Coulter MD POINT OF CARE TEST ORDERABLES Final Result Performing Organization Address [facility] de Phone Number [facility] [place] [address] * (ABNORMAL) Glucose POC (03/24/2017 3:12 AM CDT) Glucose, POC 262(H) 70 - 199 mg/dL [facility] Blood specimen (specimen) 03/24/2017 3:12 AM CDT 03/24/2017 3:12 AM CDT us Eloise Coulter MD POINT OF CARE TEST ORDERABLES Final Result Performing Organization Address [facility] Co de Phone Number [facility] Department [place] [address] * (ABNORMAL) Glucose POC (03/24/2017 1:35 AM CDT) Glucose, POC 291(H) 70 - 199 mg/dL [facility] Blood specimen (specimen) 03/24/2017 1:35 AM CDT 03/24/2017 1:35 AM CDT us Eloise Coulter MD POINT OF CARE TEST ORDERABLES Final Result Performing Organization Address City/[facility]/ZIP Co de Phone Number [facility] [place] [address] * DISCHARGE LABORATORY CUMULATIVE REPORT (03/24/2017 12:00 AM CDT) Narrative 03/24/2017 12:00 AM CDT Ordered by an unspecified provider. us Historical Provider LAB BLOOD ORDERABLES Ann Marie l Result * (ABNORMAL) Glucose POC (03/23/2017 11:23 PM CDT) Glucose, POC 324(H) 70 - 199 mg/dL [facility] Blood specimen (specimen) 03/23/2017 11:23 PM CDT 03/23/2017 11:23 PM CDT Eloise Coulter MD POINT OF CARE TEST ORDERABLES Final Result Performing Organization Address City/State/[facility] Co de Phone Number [facility] [place] [address] * US Guided Needle Placement (03/23/2017 9:42 PM CDT) Anatomical Region Laterality Modality Entire body N/A Ultrasound 03/23/2017 9:42 PM CDT Narrative 03/23/2017 9:42 PM CDT ALMA KUMAR M.D. FINAL REPORT ACC# ??Date Time ??Exam [id number] Mar 23, 2017 16:42:00 83485 Muscle BX Perc soft tissue [id number] Mar 23, 2017 16:42:00 01973N (MSK) US Needle Guide EXAMINATION: ?Left third [...] was obtained. ??Prior to beginning the procedure, [place] Protocol was performed to confirm the patient? [...] ALMA KUMAR M.D. on Mar ??2016 ??5:28P [id number] Procedure Note Miscellaneous, Not In File - 03/23/2017 ALMA KUMAR M.D. FINAL REPORT ACC# Date Time Exam [id number] Mar 23, 2017 16:42:00 81492 Muscle BX Perc soft tissue [id number] Mar 23, 2017 16:42:00 [id number] ([facility]) US Needle Guide EXAMINATION: [...] was obtained. Prior to beginning the procedure, [place] Protocol was performed to confirm the patient? [...] KUMAR M.D. on Mar 23 2017 5:28P [id number] us Not In File Miscellaneous IMG US PROCEDURES Ann Marie l Result * Needle Biopsy Soft Tissue Mass (03/23/2017 9:42 PM CDT) Anatomical Region Laterality Modality Body N/A X-Ray Angiograph y 03/23/2017 9:42 PM CDT Narrative 03/23/2017 9:42 PM CDT ALMA KUMAR M.D. FINAL REPORT ACC# ??Date Time ??Exam [id number] Mar 23, 2017 16:42:00 [id number] Muscle BX Perc soft tissue [id number] Mar 23, 2017 16:42:00 22544W (MSK) US Needle Guide EXAMINATION: ?Left third [...] was obtained. ??Prior to beginning the procedure, [place] Protocol was performed to confirm the patient? [...] ALMA KUMAR M.D. on Mar ??2016 ??5:28P [id number] Procedure Note Miscellaneous, Not In File / Provider, MD Zev - 03/23/2017 ALMA KUMAR M.D. FINAL REPORT ACC# Date Time Exam [id number] Mar 23, 2017 16:42:00 [id number] Muscle BX Perc soft tissue [id number] Mar 23, 2017 16:42:00 75825K (MSK) US Needle Guide EXAMINATION: Left third [...] was obtained. Prior to beginning the procedure, [place] Protocol was performed to confirm the patient? [...] KUMAR M.D. on Mar 23 2017 5:28P [id number] us Not In File Miscellaneous IMG IR PROCEDURES Ann Marie l Result * (ABNORMAL) Basic metabolic panel (03/23/2017 9:30 PM CDT) Sodium 133(L) 135 - 145 mmol/L [facility] Potassium, pl 5.4(H) 3.3 - 4.9 mmol/L [facility] Chloride 100 97 - 110 mmol/L [facility] CO2 23 22 - 32 mmol/L [facility] BUN 48(H) 8 - 25 mg/dL [facility] Glucose 356(H) 70 - 199 mg/dL [facility] Creatinine 1.96(H) 0.80 - 1.30 mg/dL [facility] Calcium 9.0 8.5 - 10.3 mg/dL [facility] Anion gap 10 2 - 15 mmol/L [facility] Blood specimen (specimen) 03/23/2017 9:30 PM CDT 03/23/2017 10:14 PM CDT Darnell Tesfaye LAB BLOOD ORDERABLES Final Result Performing Organization Address City/State/[facility] Co de Phone Number [facility] [place] [address] * (ABNORMAL) Potassium, Whole Blood (03/23/2017 9:30 PM CDT) [facility] Potassium, bld 5.5(H) 3.3 - 4.9 mmol/L [facility] Blood specimen (specimen) 03/23/2017 9:30 PM CDT 03/23/2017 10:29 PM CDT Darnell Tesfaye LAB BLOOD ORDERABLES Final Result Performing Organization Address [facility] [place] [address] * (ABNORMAL) Glucose POC (03/23/2017 8:31 PM CDT) [facility] Glucose, POC 350(H) 70 - 199 mg/dL [facility] Blood specimen (specimen) 03/23/2017 8:31 PM CDT 03/23/2017 8:31 PM CDT Eloise Coulter MD POINT OF CARE TEST ORDERABLES Final Result Performing Organization Address [facility] de Phone Number [facility] [place] [address] * Hepatitis B surface antibody (03/23/2017 6:05 PM CDT) [facility] HBsAb (immune status) Reactive [facility] Comment: Interpretive Data A Negative [...] HBsAb (immune status) index 183.5 mIUnits/m L [facility] Blood specimen (specimen) 03/23/2017 6:05 PM CDT 03/23/2017 7:03 PM CDT Darnell Tesfaye [facility] MICROBIOLOGY - GENERAL ORDERABLES Final Result Performing Organization Address [facility] de Phone Number [facility] [place] [address] * Hepatitis B surface antigen (03/23/2017 6:05 PM CDT) Pathologist [facility] HepBsAg Nonreactive Nonreactive [facility] Blood specimen (specimen) 03/23/2017 6:05 PM CDT 03/23/2017 7:03 PM CDT Darnell Tesfaye [facility] MICROBIOLOGY - GENERAL ORDERABLES Edited Result - Final Performing Organization Address [facility] [place] [address] * Hepatitis C antibody (03/23/2017 6:05 PM CDT) Pathologist [facility] Hep C Ab Nonreactive Nonreactive [facility] Comment: Interpretive Data Positive and greyzone results should be confirmed by a molecular method. If positive or greyzone, a second separately collected sample should be submitted for Hepatitis C Virus RNA. Detection and Quantitation by Real-Time Reverse Bird Trapper-PCR.Current Interpretive data was last revised on 2017. Blood specimen (specimen) 03/23/2017 6:05 PM CDT 03/23/2017 7:03 PM CDT Darnell Tesfaye [facility] MICROBIOLOGY - GENERAL ORDERABLES Edited Result - Final Performing Organization Address [facility] Co de Phone Number [facility] [place] [address] * Hepatitis B core antibody, total (03/23/2017 6:05 PM CDT) Hep B core IgG/IgM Nonreactive Nonreactive [facility] Blood specimen (specimen) 03/23/2017 6:05 PM CDT 03/23/2017 7:03 PM CDT Darnell Tesfaye LAB MICROBIOLOGY - GENERAL ORDERABLES Edited Result - Final Performing Organization Address City/[facility]/ZIP Co de Phone Number [facility] [place] [address] * Glucose POC (03/23/2017 5:46 PM CDT) Glucose, POC 173 70 - 199 mg/dL [facility] Blood specimen (specimen) 03/23/2017 5:46 PM CDT 03/23/2017 5:46 PM CDT us Eloise Coulter MD POINT OF CARE TEST ORDERABLES Final Result Performing Organization Address [facility] Co de Phone Number [facility] [place] [address] * Surgical pathology (03/23/2017 4:42 PM CDT) 03/23/2017 4:42 PM CDT 03/23/2017 5:00 PM CDT Narrative 03/27/2017 2:49 PM CDT [facility] Sandrine Hoyos [facility] [place] [address] SURGICAL PATHOLOGY REPORT FINAL Patient Name: JUVENAL GARVIN ? Address: [address] ??Service: ??Medical ??[place], [place] ??[address] ??Location: ??[facility] 0111 Taken: 03/23/2017 Gender: M ?? Received: 03/23/2017 : 1970 (Age: 46) ??Hospital #: [id number] Accessioned: 03/23/2017 ?Patient Type: ??[facility] Inpatient Reported: [...] determined by the Surgical Pathology Department at [facility] as part of an ongoing quality analyst program and in compliance with federally mandated [...] determined by the Surgical Pathology Department of [facility]. ??It has not been cleared or approved by the U. S. Food and Drug Administration. Alma Kumar MD LAB PATHOLOGY ORDERABLES Final Result * Aerobic and anaerobic culture and gram stain (03/23/2017 4:30 PM CDT) Direct Specimen Exam Stain: No polymorphonuclear leukocytes seen. No organisms seen. [facility] Report Final Report: No growth [facility] Biopsy (Finger, long, left) 03/23/2017 4:30 PM CDT 03/23/2017 5:33 PM CDT Narrative [facility] - 03/24/2017 7:45 AM CDT Pip [...] OR DERABLES Final Result Performing Organization Address [facility] Co de Phone Number [facility] [place] [address] * Glucose POC (03/23/2017 3:12 PM CDT) Pathologist [facility] Glucose, POC 145 70 - 199 mg/dL [facility] Blood specimen (specimen) 03/23/2017 3:12 PM CDT 03/23/2017 3:12 PM CDT Eloise Coulter MD POINT OF CARE TEST ORDERABLES Final Result Performing Organization Address [facility] de Phone Number [facility] [place] [address] * (ABNORMAL) Basic metabolic panel (03/23/2017 12:57 PM CDT) Pathologist [facility] Sodium 136 135 - 145 mmol/L [facility] Potassium, pl 5.5(H) 3.3 - 4.9 mmol/L [facility] Chloride 102 97 - 110 mmol/L [facility] CO2 24 22 - 32 mmol/L [facility] BUN 51(H) 8 - 25 mg/dL [facility] Glucose 177 70 - 199 mg/dL [facility] Creatinine 1.89(H) 0.80 - 1.30 mg/dL [facility] Calcium 9.3 8.5 - 10.3 mg/dL [facility] Anion gap 10 2 - 15 mmol/L [facility] Blood specimen (specimen) 03/23/2017 12:57 PM CDT 03/23/2017 1:24 PM CDT us Darnell Tesfaye [facility] BLOOD ORDERABLES Final Result Performing Organization Address [facility] Co de Phone Number [facility] [place] [address] * (ABNORMAL) Glucose POC (03/23/2017 11:37 AM CDT) Glucose, POC 239(H) 70 - 199 mg/dL [facility] Blood specimen (specimen) 03/23/2017 11:37 AM CDT 03/23/2017 11:37 AM CDT us Eloise Coulter MD POINT OF CARE TEST ORDERABLES Final Result Performing Organization Address [facility] de Phone Number [facility] [place] [address] * (ABNORMAL) Glucose POC (03/23/2017 10:42 AM CDT) Glucose, POC 292(H) 70 - 199 mg/dL [facility] Blood specimen (specimen) 03/23/2017 10:42 AM CDT 03/23/2017 10:42 AM CDT us Eloise Coulter MD POINT OF CARE TEST ORDERABLES Final Result Performing Organization Address [facility] Co de Phone Number [facility] [place] [address] * (ABNORMAL) Glucose POC (03/23/2017 9:12 AM CDT) Glucose, POC 333(H) 70 - 199 mg/dL [facility] Blood specimen (specimen) 03/23/2017 9:12 AM CDT 03/23/2017 9:12 AM CDT us Eloise Coulter MD POINT OF CARE TEST ORDERABLES Final Result Performing Organization Address City/[facility] Co de Phone Number [facility] [place] [address] * (ABNORMAL) Glucose POC (03/23/2017 8:07 AM CDT) Glucose, POC 377(H) 70 - 199 mg/dL [facility] Blood specimen (specimen) 03/23/2017 8:07 AM CDT 03/23/2017 8:07 AM CDT us Eloise Coulter MD POINT OF CARE TEST ORDERABLES Final Result Performing Organization Address [facility] Co de Phone Number [facility] [place] [address] * (ABNORMAL) Glucose POC (03/23/2017 8:04 AM CDT) Glucose, POC 339(H) 70 - 199 mg/dL [facility] Blood specimen (specimen) 03/23/2017 8:04 AM CDT 03/23/2017 8:04 AM CDT us Eloise Coulter MD POINT OF CARE TEST ORDERABLES Final Result Performing Organization Address [facility] Co de Phone Number [facility] [place] [address] * XR Foot 2 VW (03/22/2017 10:52 PM CDT) Anatomical Region Laterality Modality N/A Radiographic Toma ging 03/22/2017 10:5 2 PM CDT Narrative 03/22/2017 10:52 PM CDT ALMA KUMAR M.D. FINAL REPORT ACC# ??Date Time ??Exam [id number] Mar 22, 2017 17:52:00 71880 Foot 2 views L [id number] Mar 22, 2017 17:52:00 [id number] Foot 2 views R EXAMINATION: ?? 1. [...] ALMA KUMAR M.D. on Mar ??2016 ??6:29A [id number] Procedure Note Miscellaneous, Not In File / Provider, MD Zev - 03/23/2017 ALMA KUMAR M.D. FINAL REPORT ACC# Date Time Exam [id number] Mar 22, 2017 17:52:00 94516 Foot 2 views L [id number] Mar 22, 2017 17:52:00 98436 Foot 2 views R EXAMINATION: 1. Left [...] KUMAR M.D. on Mar 23 2017 6:29A [id number] us Not In File Miscellaneous IMG XR PROCEDURES Ann Marie l Result * XR Foot 2 VW (03/22/2017 10:52 PM CDT) Anatomical Region Laterality Modality N/A Radiographic Toma ging 03/22/2017 10:5 2 PM CDT Narrative 03/22/2017 10:52 PM CDT ALMA KUMAR M.D. FINAL REPORT ACC# ??Date Time ??Exam [id number] Mar 22, 2017 17:52:00 87139 Foot 2 views L [id number] Mar 22, 2017 17:52:00 55603 Foot 2 views R EXAMINATION: ?? 1. [...] by: ALMA KUMAR M.D. on Mar?2016 ??6:29A [id number] Procedure Note Miscellaneous, Not In File / Provider, MD Zev - 03/23/2017 ALMA KUMAR M.D. FINAL REPORT ACC# Date Time Exam [id number] Mar 22, 2017 17:52:00 82779 Foot 2 views L [id number] Mar 22, 2017 17:52:00 02529 Foot 2 views R EXAMINATION: 1. Left [...] This document has been electronically signed by: ALAM KUMAR M.D. on Mar 23 2017 6:29A [id number] us Not In File Miscellaneous IMG XR PROCEDURES Ann Marie l Result * Cyclic citrul peptide antibody, IgG (03/22/2017 9:06 PM CDT) [facility] CCP Ab <0.5 units/mL [facility] Comment: Interpretive data Negative: <3 units/mL Positive: > or equal to 3 units/mL Current interpretive data was last revised on 2016. Blood specimen (specimen) 03/22/2017 9:06 PM CDT 03/22/2017 10:41 PM CDT Alex Lemus MD LAB BLOOD ORDERABLES Fi nal Result Performing Organization Address City/[facility]/ZIP Co de Phone Number [facility] [place] [address] * Antithrombin (03/22/2017 9:06 PM CDT) [facility] Rheumatoid factor, quant <10.0 0.1 - 15.0 IUnits/mL [facility] Blood specimen (specimen) 03/22/2017 9:06 PM CDT 03/22/2017 10:41 PM CDT Alxe Lemus MD LAB BLOOD ORDERABLES Fi nal Result Performing Organization Address [facility] Co de Phone Number [facility] [place] [address] * (ABNORMAL) Basic metabolic panel (03/22/2017 9:06 PM CDT) [facility] Sodium 132(L) 135 - 145 mmol/L [facility] Potassium, pl 5.5(H) 3.3 - 4.9 mmol/L [facility] Chloride 100 97 - 110 mmol/L [facility] CO2 23 22 - 32 mmol/L [facility] BUN 49(H) 8 - 25 mg/dL [facility] Glucose 258(H) 70 - 199 mg/dL [facility] Creatinine 2.01(H) 0.80 - 1.30 mg/dL [facility] Calcium 8.7 8.5 - 10.3 mg/dL [facility] Anion gap 9 2 - 15 mmol/L [facility] Blood specimen (specimen) 03/22/2017 9:06 PM CDT 03/22/2017 10:41 PM CDT Result [facility] Alex Lemus MD LAB BLOOD ORDERABLES Ed ited Result - Final Performing Organization Address [facility] de Phone Number [facility] [place] [address] * aPTT (03/22/2017 9:06 PM CDT) aPTT 31.6 25.0 - 37.0 sec [facility] Comment: Interpretive Data Therapeutic heparin range:60.0 - 94.0 sec based on correlation with therapeutic heparin activity range of 0.3 -0.7 Units/mL. Current interpretive data was last revised on 2011. Blood specimen (specimen) 03/22/2017 9:06 PM CDT 03/22/2017 10:39 PM CDT Result [facility] Alex Lemus MD LAB BLOOD ORDERABLES Fi nal Result Performing Organization Address [facility] de Phone Number [facility] [place] [address] * Protime-INR (03/22/2017 9:06 PM CDT) PT 13.5 9.2 - 14.0 sec [facility] INR 1.18 0.81 - 1.22 [facility] Comment: Interpretive Data Inpatient therapeutic ranges* Atrial fibrillation ?2.0-3.0 INR Venous thrombo-embolism ?2.0-3.0 INR Bioprosthetic heart valve ?* Mechanical heart valve, bileaflet or tilting disk,aortic position ? 2.0-3.0 INR All other,or bileaflet or tilting disk, in mitral position ? 2.5-3.5 INR *See the pharmacy resource directory (PHRED) for an updated copy of the Tool Book at [email or web address] Current Interpretive Data was last revised 2011. Blood specimen (specimen) 03/22/2017 9:06 PM CDT 03/22/2017 10:39 PM CDT Alex Lemus MD LAB BLOOD ORDERABLES Fi nal Result [facility] [place] [address] * (ABNORMAL) CBC without differential (03/22/2017 9:06 PM CDT) WBC 6.43 3.80 - 9.90 K/cumm [facility] RBC 2.97(L) 4.30 - 5.80 M/cumm [facility] Hgb 8.2(L) 13.0 - 17.5 g/dL [facility] Hct 26.0(L) 38.9 - 50.3 % [facility] MCV 87.5 81.3 - 96.4 fL [facility] MCH 27.6 27.1 - 33.3 pg [facility] MCHC 31.5(L) 32.3 - 35.7 g/dL [facility] RDW CV 12.9 11.1 - 14.9 % [facility] RDW SD 41.6 35.7 - 48.1 fL [facility] NRBC 0.0 0.0 - 0.2 % [facility] NRBC abs 0.00 0.00 - 0.01 K/cumm [facility] Plt 222 150 - 400 K/cumm [facility] MPV 10.0 9.1 - 12.3 fL [facility] Blood specimen (specimen) 03/22/2017 9:06 PM CDT 03/22/2017 10:41 PM CDT us Alex Lemus MD LAB BLOOD ORDERABLES Fi nal Result Performing Organization Address [facility] Co de Phone Number [facility] [place] [address] * (ABNORMAL) Glucose POC (03/22/2017 8:56 PM CDT) [facility] Glucose, POC 249(H) 70 - 199 mg/dL [facility] Blood specimen (specimen) 03/22/2017 8:56 PM CDT 03/22/2017 8:56 PM CDT us Eloise Coulter MD POINT OF CARE TEST ORDERABLES Final Result Performing Organization Address [facility] de Phone Number [facility] [place] [address] * Dexa Axial Skeleton Bone Density 1 [...] RUPINDER ANDRES M.D. on Mar ??2016 ??2:38P [id number] Procedure Note Miscellaneous, Not In File / [...] ANDRES M.D. on Mar 22 2017 2:38P [id number] us Not In File Miscellaneous IMG DXA PROCEDURES Fin al Result * (ABNORMAL) Glucose POC (03/22/2017 5:59 PM CDT) Glucose, POC 201(H) 70 - 199 mg/dL [facility] Blood specimen (specimen) 03/22/2017 5:59 PM CDT 03/22/2017 5:59 PM CDT us Eloise Coulter MD POINT OF CARE TEST ORDERABLES Final Result [facility] [place] [address] * XR Hand 3+ VW (03/22/2017 4:37 PM CDT) Anatomical Region Laterality Modality N/A Radiographic Toma ging 03/22/2017 4:37 PM CDT Narrative 03/22/2017 4:37 PM CDT [place] CONTE M.D. FINAL REPORT ACC# ??Date Time ??Exam [id number] Mar 22, 2017 11:37:00 86926 Hand minimum 3 views L [id number] Mar 22, 2017 11:37:00 [id number] Hand minimum 3 views R EXAMINATION: ? [...] [place] CONTE M.D. on Mar ??2016 11:57A [id number] Procedure Note Miscellaneous, Not In File / Provider, MD Zev - 03/22/2017 [place] CONTE M.D. FINAL REPORT ACC# Date Time Exam [id number] Mar 22, 2017 11:37:00 86055 Hand minimum 3 views L [id number] Mar 22, 2017 11:37:00 89127 Hand minimum 3 views R EXAMINATION: 1. [...] CONTE M.D. on Mar 22 2017 11:57A [id number] us Not In File Miscellaneous IMG XR PROCEDURES Ann Marie l Result * XR Hand 3+ VW (03/22/2017 4:37 PM CDT) Anatomical Region Laterality Modality N/A Radiographic Toma ging 03/22/2017 4:37 PM CDT Narrative 03/22/2017 4:37 PM CDT [place] CONTE M.D. FINAL REPORT ACC# ??Date Time ??Exam [id number] Mar 22, 2017 11:37:00 66458 Hand minimum 3 views L [id number] Mar 22, 2017 11:37:00 67922 Hand minimum 3 views R EXAMINATION: ? [...] by: [place] CONTE M.D. on Mar?2016 11:57A [id number] Procedure Note Miscellaneous, Not In File / Provider, MD Zev - 03/22/2017 [place] CONTE M.D. FINAL REPORT ACC# Date Time Exam [id number] Mar 22, 2017 11:37:00 45935 Hand minimum 3 views L [id number] Mar 22, 2017 11:37:00 17175 Hand minimum 3 views R EXAMINATION: 1. [...] CONTE M.D. on Mar 22 2017 11:57A [id number] us Not In File Miscellaneous IMG XR PROCEDURES Ann Marie l Result * (ABNORMAL) Vitamin D 25 hydroxy (03/22/2017 2:46 PM CDT) Vitamin D 25-OH 22.7(L) 30.0 - 100.0 ng/mL [facility] Blood specimen (specimen) 03/22/2017 2:46 PM CDT 03/22/2017 3:57 PM CDT Alex Lemus MD LAB BLOOD ORDERABLES Fi nal Result Performing Organization Address City/[facility]/ZIP Co de Phone Number [facility] [place] [address] * Glucose POC (03/22/2017 2:35 PM CDT) [facility] Glucose, POC 130 70 - 199 mg/dL [facility] Blood specimen (specimen) 03/22/2017 2:35 PM CDT 03/22/2017 2:35 PM CDT us Eloise Coulter MD POINT OF CARE TEST ORDERABLES Final Result Performing Organization Address [facility] Co de Phone Number [facility] [place] [address] * Glucose POC (03/22/2017 11:47 AM CDT) [facility] Glucose, POC 185 70 - 199 mg/dL [facility] Blood specimen (specimen) 03/22/2017 11:47 AM CDT 03/22/2017 11:47 AM CDT us Eloise Coulter MD POINT OF CARE TEST ORDERABLES Final Result Performing Organization Address City/[facility] Co de Phone Number [facility] [place] [address] * Glucose POC (03/22/2017 8:38 AM CDT) Glucose, POC 198 70 - 199 mg/dL [facility] Blood specimen (specimen) 03/22/2017 8:38 AM CDT 03/22/2017 8:38 AM CDT us Eloise Coulter MD POINT OF CARE TEST ORDERABLES Final Result [facility] [place] [address] * (ABNORMAL) Lipid panel (03/21/2017 10:32 PM [...] Triglycerides 146 0 - 150 mg/dL [facility] Comment: Interpretive Data Desirable: ? < [...] on 2015. Non-HDL Cholesterol 123 mg/dL [facility] Comment: Interpretive Data When triglycerides are >200 mg/dL, non-HDL C is a secondary target of therapy, with a goal 30 mg/dL higher than the identified LDL-C goal. Reference: ??See Cholesterol Reference. Current interpretive data was last revised 2015. Blood specimen (specimen) 03/21/2017 10:32 PM CDT 03/21/2017 11:26 PM CDT Darnell Tesfaye [facility] BLOOD ORDERABLES Final Result Performing Organization Address [facility] de Phone Number [facility] [place] [address] * (ABNORMAL) Hemoglobin A1c (03/21/2017 10:32 PM CDT) Pathologist [facility] Hgb A1C 7.4(H) 4.0 - 6.0 % [facility] Estimated Average Glucose 166 mg/dL [facility] Comment: The ADA recommends reporting an estimated Average Glucose (eAG) with all Hemoglobin A1c results using the equation derived from a study of 507 normal and diabetic adults. ??Minority populations were underrepresented and children were not included. ?? (Diabetes Care 31:7908-9319, 2007). ??The eAG is not equivalent to a fasting glucose. Blood specimen (specimen) 03/21/2017 10:32 PM CDT 03/21/2017 11:29 PM CDT Darnell Tesfaye [facility] BLOOD ORDERABLES Edite d Result - Final Performing Organization Address [facility] de Phone Number [facility] [place] [address] * TSH reflex to free T4 (03/21/2017 10:32 PM CDT) TSH 0.80 0.30 - 4.20 mcIUnit/mL [facility] Comment: Interpretive Data Hyperthyroid: ??<0.1 mcIUnit/mL Hypothyroid: ??>12.0 mcIUnit/mL Current interpretive data was last revised on 00. Blood specimen (specimen) 03/21/2017 10:32 PM CDT 03/21/2017 11:26 PM CDT Darnell Tesfaye LAB BLOOD ORDERABLES Edite d Result - Final Performing Organization Address [facility] Co de Phone Number [facility] [place] [address] * Ferritin (03/21/2017 10:32 PM CDT) Ferritin 210 30 - 400 ng/mL [facility] Blood specimen (specimen) 03/21/2017 10:32 PM CDT 03/21/2017 11:26 PM CDT Darnell Tesfaye [facility] BLOOD ORDERABLES Edite d Result - Final Performing Organization Address [facility] de Phone Number [facility] [place] [address] * (ABNORMAL) Iron profile (03/21/2017 10:32 PM CDT) Iron 22(L) 50 - 150 mcg/dL [facility] UIBC 163 112 - 347 mcg/dL [facility] TIBC 185(L) 250 - 400 mcg/dL [facility] Transferrin saturation 12(L) 20 - 50 % [facility] Blood specimen (specimen) 03/21/2017 10:32 PM CDT 03/21/2017 11:26 PM CDT Darnell Tesfaye LAB BLOOD ORDERABLES Final Result Performing Organization Address [facility] Co de Phone Number [facility] [place] [address] * Troponin I (03/21/2017 10:32 PM CDT) [facility] Troponin I 0.03 0.00 - 0.03 ng/mL [facility] Comment: Interpretive Data Serial determinations are recommended for the diagnosis of myocardial infarction (Third [place] Definition of Myocardial Infarction. ??J Am Elena Cardiol 2012;60:1581-98). Current interpretive data was last revised on 13. Blood specimen (specimen) 03/21/2017 10:32 PM CDT 03/21/2017 11:26 PM CDT Darnell Tesfaye LAB BLOOD ORDERABLES Edite d Result - Final [facility] [place] [address] * (ABNORMAL) Comprehensive metabolic panel (03/21/2017 10:32 PM CDT) [facility] Sodium 136 135 - 145 mmol/L [facility] Potassium, pl 5.3(H) 3.3 - 4.9 mmol/L [facility] CO2 22 22 - 32 mmol/L [facility] BUN 46(H) 8 - 25 mg/dL [facility] Glucose 320(H) 70 - 199 mg/dL [facility] Creatinine 1.98(H) 0.80 - 1.30 mg/dL [facility] Calcium 8.8 8.5 - 10.3 mg/dL [facility] Chloride 103 97 - 110 mmol/L [facility] Albumin 3.0(L) 3.5 - 5.0 g/dL [facility] AST 27 10 - 50 Units/L [facility] ALT 36 7 - 55 Units/L [facility] Alk phos 102 40 - 130 Units/L [facility] Bilirubin, total 0.3 0.1 - 1.2 mg/dL [facility] Protein, pl 6.6 6.5 - 8.5 g/dL [facility] Anion gap 11 2 - 15 mmol/L [facility] Blood specimen (specimen) 03/21/2017 10:32 PM CDT 03/21/2017 11:26 PM CDT [facility] BLOOD ORDERABLES Final Result Performing Organization Address [facility] Co de Phone Number [facility] [place] [address] * Differential, auto (03/21/2017 10:32 PM CDT) Neutrophil pct 69.3 % [facility] Imm gran pct 0.4 % [facility] Lymphocyte pct 19.3 % [facility] Monocyte pct 9.4 % [facility] Eosinophil pct 1.3 % [facility] Basophil pct 0.3 % [facility] Neutrophil abs 4.69 1.70 - 6.50 K/cumm [facility] Imm gran abs 0.03 0.00 - 0.10 K/cumm [facility] Lymphocyte abs 1.31 0.80 - 3.30 K/cumm [facility] Monocyte abs 0.64 0.20 - 0.80 K/cumm [facility] Eosinophil abs 0.09 0.00 - 0.50 K/cumm [facility] Basophil abs 0.02 0.00 - 0.10 K/cumm [facility] Blood specimen (specimen) 03/21/2017 10:32 PM CDT 03/21/2017 11:[address] [facility] BLOOD ORDERABLES Final Result Performing Organization Address City/[facility]/ZIP Co de Phone Number [facility] Department [place] [address] * (ABNORMAL) CBC with auto differential (03/21/2017 10:32 PM CDT) WBC 6.78 3.80 - 9.90 K/cumm [facility] RBC 2.92(L) 4.30 - 5.80 M/cumm [facility] Hgb 8.1(L) 13.0 - 17.5 g/dL [facility] Hct 25.2(L) 38.9 - 50.3 % [facility] MCV 86.3 81.3 - 96.4 fL [facility] MCH 27.7 27.1 - 33.3 pg [facility] MCHC 32.1(L) 32.3 - 35.7 g/dL [facility] RDW CV 13.1 11.1 - 14.9 % [facility] RDW SD 41.5 35.7 - 48.1 fL [facility] Plt 218 150 - 400 K/cumm [facility] MPV 10.1 9.1 - 12.3 fL [facility] NRBC 0.0 0.0 - 0.2 % [facility] NRBC abs 0.00 0.00 - 0.01 K/cumm [facility] Blood specimen (specimen) 03/21/2017 10:32 PM CDT 03/21/2017 11:25 PM CDT us Darnell Tesfaye LAB BLOOD ORDERABLES Final Result [facility] [place] [address] * (ABNORMAL) Glucose POC (03/21/2017 8:30 PM CDT) Glucose, POC 323(H) 70 - 199 mg/dL [facility] Blood specimen (specimen) 03/21/2017 8:30 PM CDT 03/21/2017 8:30 PM CDT Eloise Coulter MD POINT OF CARE TEST ORDERABLES Final Result [facility] [place] [address] * (ABNORMAL) Glucose POC (03/21/2017 5:52 PM CDT) Glucose, POC 58(L) 70 - 199 mg/dL [facility] Blood specimen (specimen) 03/21/2017 5:52 PM CDT 03/21/2017 5:52 PM CDT us Eloise Coulter MD POINT OF CARE TEST ORDERABLES Final Result [facility] [place] [address] * Fluoro Guided Needle Placement (03/21/2017 3:36 PM CDT) Anatomical Region Laterality Modality Body N/A Radiographic Toma ging 03/21/2017 3:36 PM CDT Narrative 03/21/2017 3:36 PM CDT MALLORY CROSS M.D. MALISSA LEÓN M.D. FINAL REPORT The radiology attending physician has personally reviewed this study, and has reviewed and/or edited this written report and agrees with it. ACC# ??Date Time ??Exam [id number] Mar 21, 2017 10:36:00 [id number] Fluoro Gd for Ndl (MSK) [id number] Mar 21, 2017 10:36:00 22121 Asp/Inj Lg Jnt ACC# ??Date Time ??Exam [id number] Mar 21, 2017 10:36:00 [id number] Fluoro Gd for Ndl (MSK) [id number] Mar 21, 2017 10:36:00 [id number] Asp/Inj Lg Jnt EXAMINATION: ?? Right glenohumeral [...] was obtained. ??Prior to beginning the procedure, [place] Protocol was performed to confirm the patient? [...] document has been electronically signed by: MALLORY CRSOS M.D. on Mar ??2016 ??6:21P [id number] Procedure Note Miscellaneous, Not In File / Provider, MD Zev - 03/21/2017 Dorys ALEMAN M.D. FINAL REPORT The radiology attending physician has personally reviewed this study, and has reviewed and/or edited this written report and agrees with it. ACC# Date Time Exam [id number] Mar 21, 2017 10:36:00 [id number] Fluoro Gd for Ndl (MSK) [id number] Mar 21, 2017 10:36:00 24764 Asp/Inj Lg Jnt ACC# Date Time Exam [id number] Mar 21, 2017 10:36:00 [id number] Fluoro Gd for Ndl (EM) [id number] Mar 21, 2017 10:36:00 32634 Asp/Inj Lg Jnt EXAMINATION: Right glenohumeral joint [...] was obtained. Prior to beginning the procedure, [place] Protocol was performed to confirm the patient? [...] CROSS M.D. on Mar 21 2017 6:21P [id number] us Not In File Miscellaneous IMG FLUOROSCOPY [...] agrees with it. ACC# ??Date Time ??Exam [id number] Mar 21, 2017 10:36:00 [id number] Fluoro Gd for Ndl (MSK) [id number] Mar 21, 2017 10:36:00 63913 Asp/Inj Lg Jnt ACC# ??Date Time ??Exam [id number] Mar 21, 2017 10:36:00 70075T Fluoro Gd for Ndl (MSK) [id number] Mar 21, 2017 10:36:00 87768 Asp/Inj Lg Jnt EXAMINATION: ?? Right glenohumeral [...] was obtained. ??Prior to beginning the procedure, [place] Protocol was performed to confirm the patient? [...] agrees with it. ACC# Date Time Exam [id number] Mar 21, 2017 10:36:00 [id number] Fluoro Gd for Ndl (MSK) [id number] Mar 21, 2017 10:36:00 42113 Asp/Inj Lg Jnt ACC# Date Time Exam [id number] Mar 21, 2017 10:36:00 16784G Fluoro Gd for Ndl (MSK) [id number] Mar 21, 2017 10:36:00 73816 Asp/Inj Lg Jnt EXAMINATION: Right glenohumeral joint [...] was obtained. Prior to beginning the procedure, [place] Protocol was performed to confirm the patient? [...] agrees with it. ACC# ??Date Time ??Exam [id number] Mar 21, 2017 07:58:00 98159 Shoulder minimum 2 views R EXAMINATION: ?? [...] SWATI ORTIZ M.D. on Mar ??2016 10:27A [id number] Procedure Note Miscellaneous, Not In File / Provider, MD Zev - 03/21/2017 SWATI ORTIZ M.D. DONAVON WEBB M.D. FINAL REPORT The radiology attending physician has personally reviewed this study, and has reviewed and/or edited this written report and agrees with it. ACC# Date Time Exam [id number] Mar 21, 2017 07:58:00 54410 Shoulder minimum 2 views R EXAMINATION: Shoulder [...] ORTIZ M.D. on Mar 21 2017 10:27A [id number] us Not In File Miscellaneous IMG XR [...] agrees with it. ACC# ??Date Time ??Exam [id number] Mar 21, 2017 07:58:00 80621 Chest 2 views Frontl ??and ??Lat ACC# ??Date Time ??Exam [id number] Mar 21, 2017 07:58:00 07766 Chest 2 views Frontl ??and ??Lat EXAMINATION: [...] by: SWATI ORTIZ M.D. on Mar?2016 10:27A [id number] Procedure Note Miscellaneous, Not In File / Provider, MD Zev - 03/21/2017 SWATI ORTIZ M.D. DONAVON WEBB M.D. FINAL REPORT The radiology attending physician has personally reviewed this study, and has reviewed and/or edited this written report and agrees with it. ACC# Date Time Exam [id number] Mar 21, 2017 07:58:00 91884 Chest 2 views Frontl and Lat ACC# Date Time Exam [id number] Mar 21, 2017 07:58:00 92058 Chest 2 views Frontl and Lat EXAMINATION: [...] ORTIZ M.D. on Mar 21 2017 10:27A [id number] us Not In File Miscellaneous IMG XR PROCEDURES Ann Marie l Result * N. gonorrhoeae/C. trachomatis amplification test (03/21/2017 11:53 AM CDT) Report Final Report: Negative for: ??Chlamydia trachomatis rRNA Negative for: ??Neisseria gonorrhoeae rRNA [facility] Urine 03/21/2017 11:5 3 AM CDT 03/21/2017 12:07 PM CDT Narrative [facility] - 03/21/2017 12:07 PM CDT Testing performed by the Gen-Probe Tigris APTIMA Combo 2 Assay. This nucleic acid amplification test (NAAT) detects ribosomal RNA (rRNA) from Chlamydia trachomatis and Neisseria gonorrhoeae using target capture,and Bird Trapper-Mediated Amplification (TMA). This test is approved by the [place] Food and Drug Administration for endocervical, vaginal, and male urethral swab specimens, in addition to male and female urine specimens. The performance characteristics for these specimen types have been verified by the [facility].The performance characteristics of this assay for pharyngeal and rectal specimens collected from cervical swab collection devices have been validated and verified by the [facility]. Verification studies support a lack [...] ORDERABLES Final Result Performing Organization Address City/[facility]/ZIP Co de Phone Number [facility] [place] [address] * B Check Sample (03/21/2017 8:24 AM CDT) ABO Rh A Positive [facility] HCLL OTHER 03/21/2017 8:24 AM CDT 03/21/2017 9:32 AM CDT us Notinfile Unknown LAB BLOOD ORDERABLES Final Res ult Performing Organization Address [facility] Co de Phone Number [facility] [place] [address] * Lactate POC (03/21/2017 8:24 AM CDT) Pathologist [facility] Lactate POC i-STAT 1.0 0.7 - 2.2 mmol/L [facility] Blood specimen (specimen) 03/21/2017 8:24 AM CDT 03/21/2017 8:24 AM CDT us Notinfile Unknown LAB BLOOD ORDERABLES Final Res ult Performing Organization Address City/[facility] Co de Phone Number [facility] Department [place] [address] * Blood culture (03/21/2017 8:11 AM CDT) [...] organism identification may be performed using the Apokalyyis Nanosphere Gram Positive Blood Culture Assay. ??The Nanosphere assay detects microbial DNA in positive blood culture broth via hybridization of target DNA to capture oligonucleotides on a microarray. ??This assay has been cleared by the [place] Food and Drug Administration and its performance characteristics have been verified by the [facility]. Current Interpretive Data was last revised on 2014. Estelita Bishop MD LAB MICROBIOLOGY - GENERAL ORDERABLES Final Result [facility] [place] [address] * Blood culture (03/21/2017 8:11 AM CDT) Report Final Report: No growth [facility] Blood specimen (specimen) (Antecubital, left) 03/21/2017 [...] organism identification may be performed using the CRITICAL TECHNOLOGIESigene Nanosphere Gram Positive Blood Culture Assay. ??The Nanosphere assay detects microbial DNA in positive blood culture broth via hybridization of target DNA to capture oligonucleotides on a microarray. ??This assay has been cleared by the [place] Food and Drug Administration and its performance characteristics have been verified by the [facility]. Current Interpretive Data was last revised on 2014. us Estelita Bishop MD LAB MICROBIOLOGY - GENERAL ORDERABLES Final Result Performing Organization Address [facility] Co de Phone Number [facility] [place] [address] * Uric acid (03/21/2017 8:11 AM CDT) Uric acid 8.0 3.0 - 8.0 mg/dL [facility] Blood specimen (specimen) 03/21/2017 8:11 AM CDT 03/21/2017 8:22 AM CDT us Estelita Bishop MD LAB BLOOD ORDERABL ES Edited Result - Final Performing Organization Address [facility] de Phone Number [facility] [place] [address] * (ABNORMAL) CRP (acute phase) (03/21/2017 8:11 AM CDT) CRP 107.2(H) 0.0 - 9.9 mg/L [facility] Blood specimen (specimen) 03/21/2017 8:11 AM CDT 03/21/2017 8:22 AM CDT us Estelita Bishop MD LAB BLOOD ORDERABL ES Final Result Performing Organization Address [facility] de Phone Number [facility] Department [place] [address] * Hepatic function panel (03/21/2017 8:11 AM CDT) AST 34 10 - 50 Units/L [facility] ALT 45 7 - 55 Units/L [facility] Alk phos 114 40 - 130 Units/L [facility] Bilirubin, total 0.4 0.1 - 1.2 mg/dL [facility] Bilirubin, direct <0.2 0.1 - 0.3 mg/dL [facility] Protein, pl 7.7 6.5 - 8.5 g/dL [facility] Albumin 3.8 3.5 - 5.0 g/dL [facility] Blood specimen (specimen) 03/21/2017 8:11 AM CDT 03/21/2017 8:22 AM CDT Result [facility] Estelita Bishop MD LAB BLOOD ORDERABL ES Edited Result - Final Performing Organization Address City/[facility] Co de Phone Number [facility] [place] [address] * aPTT (03/21/2017 8:11 AM CDT) Pathologist [facility] aPTT 32.5 25.0 - 37.0 sec [facility] Comment: Interpretive Data Therapeutic heparin range:60.0 - 94.0 sec based on correlation with therapeutic heparin activity range of 0.3 -0.7 Units/mL. Current interpretive data was last revised on 2011. Blood specimen (specimen) 03/21/2017 8:11 AM CDT 03/21/2017 8:58 AM CDT Estelita Bishop MD LAB BLOOD ORDERABL ES Final Result Performing Organization Address City/[facility]/ZIP Co de Phone Number [facility] [place] [address] * (ABNORMAL) Protime-INR (03/21/2017 8:11 AM CDT) Pathologist [facility] PT 16.2(H) 9.2 - 14.0 sec [facility] INR 1.41(H) 0.81 - 1.22 [facility] Comment: Interpretive Data Inpatient therapeutic ranges* Atrial fibrillation ?2.0-3.0 INR Venous thrombo-embolism ?2.0-3.0 INR Bioprosthetic heart valve ?* Mechanical heart valve, bileaflet or tilting disk,aortic position ? 2.0-3.0 INR All other,or bileaflet or tilting disk, in mitral position ? 2.5-3.5 INR *See the pharmacy resource directory (PHRED) for an updated copy of the Tool Book at [email or web address] Current Interpretive Data was last revised 2011. Blood specimen (specimen) 03/21/2017 8:11 AM CDT 03/21/2017 8:58 AM CDT Estelita Bishop MD LAB BLOOD ORDERABL ES Final Result [facility] [place] [address] * Type and screen (03/21/2017 8:11 AM CDT) Maribel, indirect Negative [facility] ABO Rh A Positive [facility] Blood specimen (specimen) 03/21/2017 8:11 AM CDT 03/21/2017 8:23 AM CDT Estelita Bishop MD LAB BLOOD BANK ERNESTO T ORDERABLES Edited Result - Final [facility] [place] [address] * (ABNORMAL) Erythrocyte sedimentation rate (03/21/2017 8:11 AM CDT) Erythrocyte sedimentation rate 102(H) 0 - 12 mm/H [facility] Blood specimen (specimen) 03/21/2017 8:11 AM CDT 03/21/2017 8:22 AM CDT Estelita Bishop MD LAB BLOOD ORDERABL ES Final Result Performing Organization Address [facility] de Phone Number [facility] [place] [address] * (ABNORMAL) Urinalysis, microscopic only (03/21/2017 7:15 AM CDT) RBC, ur 1 0 - 3 /HPF [facility] WBC, ur 0 0 - 5 /HPF [facility] Bacteria, ur Negative Trace [facility] Epithelial cells, renal, ur 0 0 - 0 /HPF [facility] Mucus, ur Small /HPF [facility] Hyaline casts, ur >2(H) 0 - 0 /LPF [facility] Urine 03/21/2017 7:15 AM CDT 03/21/2017 7:46 AM CDT Estelita Bishop MD LAB URINE ORDERABL ES Final Result Performing Organization Address [facility] de Phone Number [facility] [place] [address] * (ABNORMAL) Urinalysis reflex to microscopic (03/21/2017 7:15 AM CDT) Color, ur Colorless Yellow [facility] Clarity, ur Clear Clear [facility] Specific gravity, ur 1.005 1.003 - 1.030 [facility] pH, ur 5.0 5.0 - 8.0 [facility] Albumin, ur Negative Trace [facility] Glucose, ur ql Negative Negative [facility] Ketones, ur Negative Negative [facility] Bilirubin, ur Negative Negative [facility] Blood, ur 1+(A) Negative [facility] Urobilinogen, ur <2.0 <2.0 mg/dL [facility] Nitrites, ur Negative Negative [facility] Leukocyte esterase, ur Negative Negative [facility] Urine 03/21/2017 7:15 AM CDT 03/21/2017 7:46 AM CDT us Estelita Bishop MD LAB URINE ORDERABL ES Final Result Performing Organization Address [facility] Co de Phone Number [facility] [place] [address] * (ABNORMAL) Basic metabolic panel (03/21/2017 7:15 AM CDT) Pathologist [facility] Sodium 140 135 - 145 mmol/L [facility] Potassium, pl 5.9(H) 3.3 - 4.9 mmol/L [facility] Chloride 108 97 - 110 mmol/L [facility] CO2 21(L) 22 - 32 mmol/L [facility] BUN 50(H) 8 - 25 mg/dL [facility] Glucose 137 70 - 199 mg/dL [facility] Creatinine 1.99(H) 0.80 - 1.30 mg/dL [facility] Calcium 9.2 8.5 - 10.3 mg/dL [facility] Anion gap 11 2 - 15 mmol/L [facility] Blood specimen (specimen) 03/21/2017 7:15 AM CDT 03/21/2017 7:26 AM CDT us Daniel Mejia MD LAB BLOOD ORDERABLES Final Res ult Performing Organization Address [facility] Co de Phone Number [facility] [place] [address] * (ABNORMAL) B-type natriuretic peptide (03/21/2017 7:15 AM CDT) Pathologist [facility] B-Type Natriuretic Peptide (BNP) 113(H) 0 - 100 pg/mL [facility] Blood specimen (specimen) 03/21/2017 7:15 AM CDT 03/21/2017 7:26 AM CDT us Daniel Mejia MD LAB BLOOD ORDERABLES Final Res ult Performing Organization Address [facility] Co de Phone Number [facility] [place] [address] * Troponin I (03/21/2017 7:15 AM CDT) Pathologist [facility] Troponin I 0.03 0.00 - 0.03 ng/mL [facility] Comment: Interpretive Data Serial determinations are recommended for the diagnosis of myocardial infarction (Third [place] Definition of Myocardial Infarction. ??J Am Elena Cardiol 2012;60:1581-98). Current interpretive data was last revised on 13. Blood specimen (specimen) 03/21/2017 7:15 AM CDT 03/21/2017 7:26 AM CDT us Daniel Mejia MD LAB BLOOD ORDERABLES Edited Re sult - Final Performing Organization Address [facility] Co de Phone Number [facility] [place] [address] * (ABNORMAL) Differential, auto (03/21/2017 7:15 AM CDT) Pathologist [facility] Neutrophil pct 74.9 % [facility] Imm gran pct 0.5 % [facility] Lymphocyte pct 11.9 % [facility] Monocyte pct 11.8 % [facility] Eosinophil pct 0.8 % [facility] Basophil pct 0.1 % [facility] Neutrophil abs 6.21 1.70 - 6.50 K/cumm [facility] Imm gran abs 0.04 0.00 - 0.10 K/cumm [facility] Lymphocyte abs 0.99 0.80 - 3.30 K/cumm [facility] Monocyte abs 0.98(H) 0.20 - 0.80 K/cumm [facility] Eosinophil abs 0.07 0.00 - 0.50 K/cumm [facility] Basophil abs 0.01 0.00 - 0.10 K/cumm [facility] Blood specimen (specimen) 03/21/2017 7:15 AM CDT 03/21/2017 7:26 AM CDT us Daniel Mejia MD LAB BLOOD ORDERABLES Final Res ult Performing Organization Address [facility] Co de Phone Number [facility] [place] [address] * (ABNORMAL) CBC with auto differential (03/21/2017 7:15 AM CDT) WBC 8.30 3.80 - 9.90 K/cumm [facility] RBC 3.24(L) 4.30 - 5.80 M/cumm [facility] Hgb 9.1(L) 13.0 - 17.5 g/dL [facility] Hct 28.2(L) 38.9 - 50.3 % [facility] MCV 87.0 81.3 - 96.4 fL [facility] MCH 28.1 27.1 - 33.3 pg [facility] MCHC 32.3 32.3 - 35.7 g/dL [facility] RDW CV 13.2 11.1 - 14.9 % [facility] RDW SD 41.9 35.7 - 48.1 fL [facility] Plt 232 150 - 400 K/cumm [facility] MPV 9.5 9.1 - 12.3 fL [facility] NRBC 0.0 0.0 - 0.2 % [facility] NRBC abs 0.00 0.00 - 0.01 K/cumm [facility] Blood specimen (specimen) 03/21/2017 7:15 AM CDT 03/21/2017 7:26 AM CDT us Daniel Mejia MD LAB BLOOD ORDERABLES Final Res ult Performing Organization Address [facility]/State/ZIP Co de Phone Number [facility] [place] [address] * Glucose POC (03/21/2017 6:50 AM CDT) Glucose, POC 141 70 - 199 mg/dL [facility] Blood specimen (specimen) 03/21/2017 6:50 AM CDT 03/21/2017 6:50 AM CDT us Notinfile Unknown POINT OF CARE TEST ORDERABLES Final Result [facility] [place] [address] * TRANSTHORACIC ECHO (TTE) COMPLETE W DOPPLER/CF WO CONTRAST (03/21/2017) Anatomical Region Laterality Modality Ultrasound us Provider Scanning CV ECHO PROCEDURES Final Resul t * ELECTROCARDIOGRAPHY (ECG) (03/21/2017) us Provider Scanning ECG ORDERABLES Edited Result - Final documented in this encounter Visit Diagnoses Not on filedocumented in this encounter Care Teams Television Anchor Relationship Specialty Start Date End Date Jhonatan Bellamy MD [address] [place] [address] PCP - General 03/25/15 04/16/18 documented as of this encounter
[2024-09-08] VITALS (11 sets, daily range): BP systolic 120–128; BP diastolic 69–78; PULSE 11–116; RESP 14–18; TEMP 36.5–36.9; O2SAT 97–99
--- NOTE | 2024-09-08 02:43 | PC.NURSE ---
Tonight patient complained that his peritoneal dialysis was going off. Evaluated with Sarah, charge nurse, and gathered information from machine. Called machine number and [place] insurance claims representative stated would need to setup and new supplies. Called Dr. Rodriguez about situation, and he stated that [facility], so turned it off and will notify the next nurse in the morning.
[2024-09-08] MEDS: HYDROmorphone HCL INJ (*CRX) 1 MG/ML SYR 0.5 MG IV PUSH (02:53)
[2024-09-08 05:18] LABS: Basophils Percent Auto 0.5 % (0.2-1.2); Eosinophils Absolute Auto 0.4 K/mm3 (0-0.3); Eosinophils Percent Auto 4.7 % (0-4.4); Hematocrit 33.5 % (42.0-52.0); Immature Granulocyte Absolute 0.03 K/mm3 (0.00-0.031); Immature Granulocyte Percent A 0.4 % (0-0.5); Lymphocytes Absolute Auto 1.44 K/mm3 (0.9-3.2); Lymphocytes Percent Auto 19.5 % (18.3-44.2); Mean Corpuscular HGB Conc 32.8 g/dl (32-36); Mean Corpuscular Hemoglobin 30.9 pg (26-34); Mean Corpuscular Volume 94.1 fl (80-100); Monocytes Absolute Auto 1.6 K/mm3 (0.1-0.6); Neutrophils Percent Auto 53.9 % (45.5-73.1); Platelet Count Result 205 k/mm3 (150-375); Red Blood Count 3.56 M/mm3 (4.6-6.20); Red Cell Distribution Width 15.4 % (11.5-14.5); White Blood Count 7.4 K/mm3 (4.5-10.0)
[2024-09-08 05:26] LABS: Anion Gap 10 mmol/L (4-12); Blood Urea Nitrogen 62 mg/dL (9-20); Calcium 8.7 mg/dL (8.4-10.2); Carbon Dioxide 29 mmol/L (22-30); Chloride 96 mmol/L (98-107); Estimated CRCL calculation 12 ml/min; Estimated Glomerular Filt Rate 7; Glucose 75 mg/dL (65-110); Potassium 3.7 mmol/L (3.4-5.0); Sodium 135 mmol/L (137-145)
[2024-09-08 05:28] LABS: INR 1.5; Prothrombin Time 18.7 Seconds (11.1-14.7)
[2024-09-08] MEDS: oxyCODONE HCL (*CRX) 5 MG TAB IR PO ×2 (05:30→17:26)
[2024-09-08] MEDS: LEVOTHYROXINE SODIUM 25 MCG TABLET PO (05:30)
[2024-09-08 05:40] LABS: Anisocytosis 1+; Burr Cells 1+; Ovalocytes 1+; Platelet Estimate Adequate (Adequate); Schistocytes None Seen
[2024-09-08 06:03] LABS: Glucose Point of Care 73 mg/dl (65-105)
[2024-09-08 08:23] LABS: Glucose Point of Care 87 mg/dl (65-105)
--- NOTE | 2024-09-08 08:35 | PM.IMPN ---
Progress Note: A&P Assessment and Plan (1) Type 1 diabetes mellitus: Qualifiers: Diabetes mellitus complication detail: without coma Diabetes mellitus complication status: with ketoacidosis Qualified Code(s): E10.10 - Type 1 diabetes mellitus with ketoacidosis without coma Code(s): E10.9 - Type 1 diabetes mellitus without complications Status: Acute (2) DKA (diabetic ketoacidosis): Qualifiers: Diabetes mellitus complication detail: without coma Diabetes mellitus type: type 1 Qualified Code(s): E10.10 - Type 1 diabetes mellitus with ketoacidosis without coma Code(s): E11.10 - Type 2 diabetes mellitus with ketoacidosis without coma Status: Acute (3) Cholelithiasis: Qualifiers: Biliary obstruction: without biliary obstruction Cholecystitis presence: without cholecystitis Cholelithiasis location: gallbladder Qualified Code(s): K80.20 - Calculus of gallbladder without cholecystitis without obstruction Code(s): K80.20 - Calculus of gallbladder without cholecystitis without obstruction Status: Acute (4) End stage renal disease on dialysis: Code(s): N18.6 - End stage renal disease; Z99.2 - Dependence on renal dialysis Status: Acute (5) Essential hypertension: Code(s): I10 - Essential (primary) hypertension Status: Chronic (6) Paroxysmal atrial fibrillation: Code(s): I48.0 - Paroxysmal atrial fibrillation Status: Acute (7) Sepsis: Code(s): A41.9 - Sepsis, unspecified organism Status: Acute (8) Pancytopenia: Code(s): D61.818 - Other pancytopenia Status: Acute (9) Acute hypoxemic respiratory failure: Code(s): J96.01 - Acute respiratory failure with hypoxia Status: Acute (10) ESRD on peritoneal dialysis: Code(s): N18.6 - End stage renal disease; Z99.2 - Dependence on renal dialysis Status: Acute (11) Patient on peritoneal dialysis: Code(s): Z99.2 - Dependence on renal dialysis Status: Acute (12) End stage renal disease: Code(s): N18.6 - End stage renal disease Status: Chronic (13) Hyperglycemia due to diabetes mellitus: Code(s): E11.65 - Type 2 diabetes mellitus with hyperglycemia Status: Acute (14) Type 1 diabetes mellitus with hyperglycemia: Code(s): E10.65 - Type 1 diabetes mellitus with hyperglycemia Status: Chronic Plan Diabetic ketoacidosis: Code(s): E11.10 - Type 2 diabetes mellitus with ketoacidosis without coma Status: Acute Assessment and Plan: Pt will be given 1 L IVF bolus On admission further fluids were held due to patient's end-stage renal disease Insulin infusion was started and Q1H glucose monitoring was done Serial labs were done His anion gap closed and and patient has been transition to subcutaneous insulin he is tolerating p.o. diet Consult dietitian and nurse informatics educator increase Lantus today continue Accu-Cheks and sliding scale insulin ESRD on peritoneal dialysis: Code(s): N18.6 - End stage renal disease; Z99.2 - Dependence on renal dialysis Status: Acute Assessment and Plan: Patient is getting PD every night. 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 Chest x-ray shows left lower lobe infiltrate suggestive of pneumonia. Patient also has right upper quadrant tenderness and has history of cholelithiasis Due to his as treatment disease be given conservative amount of IV fluids and 1 L fluid bolus was get Blood cultures, UA and micro are negative procalcitonin level was 1.6 CT chest abdomen pelvis could not be done as patient was unable to lay flat right upper quadrant ultrasound showed cholelithiasis but no evidence of cholecystitis, patient seen by surgery, no intervention at this time sent peritoneal fluid for cytology and was negative and preliminary cultures are negative - discontinue vancomycin. Switched Zosyn to p.o. Augmentin completed 09/07. Switched azithromycin to p.o.and completed Status post Jonn-Synephrine for greater than 48 hours Pneumonia: Qualifiers: Pneumonia type: due to unspecified organism Laterality: left Lung location: lower lobe of lung Qualified Code(s): J18.9 - Pneumonia, unspecified organism Code(s): J18.9 - Pneumonia, unspecified organism Status: Acute Assessment and Plan: See above Cholelithiasis: Qualifiers: Cholelithiasis location: gallbladder Cholecystitis presence: without cholecystitis Biliary obstruction: without biliary obstruction Qualified Code(s): K80.20 - Calculus of gallbladder without cholecystitis without obstruction Code(s): K80.20 - Calculus of gallbladder without cholecystitis without obstruction Status: Acute Assessment and Plan: Tenderness in right upper quadrant. right upper quadrant ultrasound showed cholelithiasis with no evidence of cholecystitis. Patient was seen by General surgery and recommend low-fat diet at this time. No plan for surgical intervention at the moment General surgeon does not recommend surgical intervention except for true emergent basis. If he were to require surgery, he would be better suited at a tertiary care facility due to his very low cardiac ejection fraction and other medical issues. Abdominal pain: Code(s): R10.9 - Unspecified abdominal pain Status: Resolved Assessment and Plan: See above Hypertension: Code(s): I10 - Essential (primary) hypertension Status: Chronic Assessment and Plan: Blood pressure borderline Hold amlodipine and beta-umair upon arrival Blood pressure bumped up, resume beta-umair 25 mg b.i.d. p.o. Paroxysmal atrial fibrillation: Code(s): I48.0 - Paroxysmal atrial fibrillation Status: Acute Assessment and Plan: resume beta-umair anticoagulated with warfarin -INR 1.4 Increase warfarin 5mg from 3 mg 09/06 Increase warfarin 7.5mg from 5 mg 09/07, INR 1.4 >1.5 on 09/08 Severe systolic heart failure Echocardiogram September 2023 Left ventricular systolic function is severely reduced, estimated at 20-25%. Patient does not know he has severe chronic systolic heart failure Patient does not have AICD Repeat echocardiogram, 1. Left ventricular chamber dimension is mildly enlarged. 2. There is mildly increased left ventricular wall thickness. 3. Left ventricular systolic function is severely reduced with an ejection fraction by Biplane Method of Discs of 25 %. 4. Right ventricular chamber dimension is normal. 5. Right ventricular systolic function is reduced. 6. Left atrial chamber dimension is mildly enlarged. 7. Right atrial chamber dimension is mildly enlarged. 8. There is no regurgitation of the mechanical aortic valve. Mean gradient of 6mmHg. Valve is well seated and appears to be functioning appropriately. 9. There is mild mitral valve regurgitation. 10. There is mild tricuspid valve regurgitation. 11. Pulmonary hypertension, estimated pulmonary arterial systolic pressure is 51 mmHg. Consult cardiology for evaluation treatment Appreciate cardiology consultation, Evidence Technician recommends event monitor on discharge to confirm a diagnosis of atrial fibrillation since target INR would be higher DVT prophylaxis -resume warfarin Stress ulcer prophylaxis -continue home PPI Nutrition - diet order Code Status - Full Code PT OT incentive spirometry up in chair Subjective Date/time seen: 09/08/24 08:35 Interval history: I saw exam patient today, patient denies dyspnea chest pain palpitation, lightheadedness. Has general weakness,. Labs reviewed, afebrile blood pressure stable Exam Narrative: GENERAL: Pleasant, in no acute distress. Well-nourished. - EYES: EOMI. Anicteric. - HENT: Moist mucous membranes. - LUNGS: Coarse breath sound bilateral base no wheezing, rhonchi, or rales. - CARDIOVASCULAR: Regular rate and rhythm. No murmur. No JVD. - ABDOMEN: Soft, non-tender and non-distended. No palpable masses. - EXTREMITIES: No edema. Peripheral pulses 2+. Non-tender. - NEUROLOGIC: No focal neurological deficits. CN II-XII grossly intact. General weakness - PSYCHIATRIC: Awake, Alert and oriented x 3. Appropriate mood and affect. - SKIN: No rashes or lesions. Warm. - LYMPH: No cervical lymphadenopathy. Objective Data Vital Signs Vital Signs: Vital Signs - 24 hr 09/07/24 08:48 09/07/24 11:14 09/07/24 12:00 Temperature Pulse Rate 104 H 92 93 Respiratory Rate Blood Pressure Pulse Oximetry Oxygen Delivery 09/07/24 13:53 09/07/24 16:00 09/07/24 20:00 Temperature 98.1 F Pulse Rate 88 101 H Respiratory Rate 18 Blood Pressure 114/71 Pulse Oximetry 99 Oxygen Delivery Room Air 09/07/24 20:00 09/07/24 21:25 09/07/24 21:37 Temperature 97.6 F Pulse Rate 105 H 106 H 112 H Respiratory Rate 16 Blood Pressure 126/75 Pulse Oximetry 94 Oxygen Delivery 09/08/24 00:00 09/08/24 04:00 09/08/24 06:05 Temperature 98.0 F Pulse Rate 98 113 H 115 H Respiratory Rate 14 Blood Pressure 120/73 Pulse Oximetry 97 Oxygen Delivery Intake/Output Intake/Output: Intake & Output 09/05/24 09/06/24 09/07/24 09/08/24 23:59 23:59 23:59 23:59 Intake Total 2070 1020 1100 480 Output Total 1029 9599 7774 Balance 4954 -232 -916 370 Meds/Results Medications: Active Medications Generic Name Dose Route Start Last Admin Trade Name Freq PRN Reason Stop Dose Admin Acetaminophen 650 mg 08/31/24 19:35 09/06/24 12:09 Acetaminophen 325 Mg Tablet PO 650 mg Q4H PRN Administration Mild Pain (1-3) or Fever Albuterol 2.5 mg 08/31/24 13:59 Albuterol Sulfate Neb 2.5 Mg/3 Ml Inh INHALATION Q4HRT PRN Shortness Of Breath Or Wheezing Albuterol 1 puff 08/31/24 22:48 Albuterol Sulfate (*Sp) Aerosol 1 Puff INHALATION Q6HRT PRN shortness of breath or wheezing Amoxicillin/Clavulanate Potassium 1 tablet 09/03/24 12:40 09/07/24 21:37 Amoxicillin/Clavulanate K 500-125 Mg Tab PO 1 tablet Q12HR ASHLEY Administration Aspirin 81 mg 09/01/24 09:00 09/07/24 08:47 Aspirin 81 Mg Chewable Tablet PO 81 mg DAILY ASHLEY Administration Atorvastatin Calcium 80 mg 09/01/24 09:00 09/07/24 08:48 Atorvastatin 40 Mg Tablet PO 80 mg DAILY ASHLEY Administration Benzocaine 1 lozenge 09/06/24 06:29 Benzocaine/Menthol (*Bkc) 18 Ea Lozenge PO PRN PRN Sore Throat Calcitriol 0.25 mcg 09/01/24 09:00 09/07/24 08:48 Calcitriol 0.25 Mcg Capsule PO 0.25 mcg QAM ASHLEY Administration Calcium Acetate 667 mg 08/31/24 21:00 09/07/24 21:36 Calcium Acetate 667 Mg Tablet PO 667 mg QID ASHLEY Administration Cyclobenzaprine HCl 10 mg 08/31/24 23:58 09/01/24 00:03 Cyclobenzaprine Hcl 10 Mg Tablet PO 10 mg Q8H PRN Administration muscle spasm Cyclosporine 1 drop 08/31/24 22:50 09/07/24 21:39 Cyclosporine 0.4 Ml Ophth Solution EACH EYE 1 drop Q12HR ASHLEY Administration Dextrose 12.5 gm 09/01/24 10:48 Dextrose 50% 25 Gm/50 Ml Syringe IV PUSH PRN PRN Hypoglycemia Protocol Ezetimibe 10 mg 09/01/24 09:00 09/07/24 08:48 Ezetimibe 10 Mg Tablet PO 10 mg DAILY ASHLEY Administration Erythromycin 1 applic 08/31/24 23:05 09/07/24 21:39 Erythromycin Ophth Ointment 1 Gm Tube EACH EYE Not Given HS COUNT INCLUDES THE [facility] Gentamicin Sulfate 1 applic 09/01/24 17:00 09/07/24 09:33 Gentamicin Sulfate 0.1% Oint 15 Gm Tube TOPICAL 1 applic DAILY ASHLEY Administration Glucagon 1 mg 09/01/24 10:48 Glucagon For Inj 1 Mg Vial IM PRN PRN Hypoglycemia Protocol Glucose 15 gm 09/01/24 10:48 Glucose Oral Gel 15 Gm Of Glucse In 37.5 Gm Tube PO PRN PRN Hypoglycemia Protocol Hydromorphone HCl 0.5 mg 08/31/24 19:39 09/08/24 02:53 Hydromorphone Hcl Inj (*Crx) 1 Mg/Ml Syr IV PUSH 0.5 mg Q3H PRN Administration Pain Rated 7-10 Dextrose 1,000 mls @ 100 mls/hr 09/01/24 10:48 Dextrose 5% 1,000 Ml IVPB PRN PRN Hypoglycemia Protocol Insulin Aspart 4 - 8 units 09/01/24 12:00 09/07/24 17:20 Insulin Aspart (*Bkc) 100 Units/Ml SUB-Q Not Given TIDWM COUNT INCLUDES THE [facility] Protocol Insulin Aspart 2 - 4 units 09/01/24 21:00 09/07/24 21:38 Insulin Aspart (*Bkc) 100 Units/Ml SUB-Q Not Given HS COUNT INCLUDES THE [facility] Protocol Insulin Aspart 7 units 09/04/24 12:00 09/07/24 17:20 Insulin Aspart (*Bkc) 100 Units/Ml SUB-Q 7 units TIDWM COUNT INCLUDES THE [facility] Administration Insulin Glargine 35 units 09/04/24 08:49 09/07/24 23:12 Insulin Glargine (*Bkc) 100 Units/Ml SUB-Q 35 units Q12HR ASHLEY Administration Levothyroxine Sodium 25 mcg 09/01/24 06:30 09/08/24 05:30 Levothyroxine Sodium 25 Mcg Tablet PO 25 mcg DAILY@0630 ASHLEY Administration Metoclopramide HCl 10 mg 09/05/24 17:31 09/05/24 17:49 Metoclopramide Hcl Inj 10 Mg/2 Ml Vial IV PUSH 10 mg Q6HR PRN Administration nausea Metoprolol Tartrate 25 mg 09/03/24 09:00 09/07/24 21:37 Metoprolol Tartrate 25 Mg Tablet PO 25 mg Q12HR ASHLEY Administration Nitroglycerin 0.4 mg 08/31/24 22:48 Nitroglycerin Sl 0.4 Mg Tablet SUBLINGUAL Q5MIN PRN Chest Pain Oxycodone HCl 5 mg 08/31/24 19:39 09/08/24 05:30 Oxycodone Hcl (*Crx) 5 Mg Tab Ir PO 5 mg Q4H PRN Administration Pain Rated 7-10 Pantoprazole Sodium 40 mg 09/01/24 09:00 09/07/24 08:49 Pantoprazole 40 Mg Tablet PO 40 mg QAM ASHLEY Administration Tamsulosin HCl 0.4 mg 08/31/24 19:45 09/07/24 17:19 Tamsulosin Hcl 0.4 Mg Capsule PO 0.4 mg BID ASHLEY Administration Valacyclovir HCl 500 mg 09/05/24 09:00 09/07/24 08:49 Valacyclovir Hcl 500 Mg Tablet PO 500 mg DAILY ASHLEY Administration Warfarin Sodium 7.5 mg 09/07/24 17:00 09/07/24 17:20 Warfarin (*Pbkc) 7.5 Mg Tablet PO 7.5 mg DAILY@1700 ASHLEY Administration Radiology Results: ITS Impressions Chest X-Ray 08/31/24 13:03 IMPRESSION: Patchy left mid and particularly lower lung infiltrate and/or atelectasis, increased since 08/18/2024 Small left pleural effusion Abdomen Ultrasound 09/01/24 09:21 IMPRESSION: Cholelithiasis Labs Labs: Laboratory Results - last 24 hr 09/07/24 09/07/24 09/07/24 10:34 11:48 16:56 WBC 5.8 RBC 3.50 L Hgb 10.9 L Hct 33.1 L MCV 94.6 MCH 31.1 MCHC 32.9 RDW 15.6 H Plt Count 174 MPV 10.1 Immature Gran % (Auto) 0.3 Neut % (Auto) 60.3 Lymph % (Auto) 16.7 L Piatt % (Auto) 17.4 H Eos % (Auto) 5.0 H Baso % (Auto) 0.3 Lymph # (Auto) 0.97 Piatt # (Auto) 1.0 H Eos # (Auto) 0.3 Baso # (Auto) 0.0 Abs Immat Gran (auto) 0.02 Absolute Neuts (auto) 3.5 Absolute Nucleated RBC 0.000 Nucleated RBC % 0.0 Platelet Estimate Anisocytosis Ovalocytes [place] Cells Schistocytes PT 18.1 H INR 1.4 Sodium 133 L Potassium 3.7 Chloride 96 L Carbon Dioxide 30 Anion Gap 7 BUN 59 H Creatinine 8.71 H Estim Creat Clear Calc 12 Estimated GFR 6 L Glucose 181 H POC Capillary Glucose 130 H 127 H Calcium 9.1 09/07/24 09/07/24 09/08/24 21:27 23:11 05:03 WBC 7.4 RBC 3.56 L Hgb 11.0 L Hct 33.5 L MCV 94.1 MCH 30.9 MCHC 32.8 RDW 15.4 H Plt Count 205 MPV 10.0 Immature Gran % (Auto) 0.4 Neut % (Auto) 53.9 Lymph % (Auto) 19.5 Piatt % (Auto) 21.0 H Eos % (Auto) 4.7 H Baso % (Auto) 0.5 Lymph # (Auto) 1.44 Piatt # (Auto) 1.6 H Eos # (Auto) 0.4 H Baso # (Auto) 0.0 Abs Immat Gran (auto) 0.03 Absolute Neuts (auto) 4.0 Absolute Nucleated RBC 0.000 Nucleated RBC % 0.0 Platelet Estimate Adequate Anisocytosis 1+ Ovalocytes 1+ Loyd Cells 1+ Schistocytes None seen PT 18.7 H INR 1.5 Sodium 135 L Potassium 3.7 Chloride 96 L Carbon Dioxide 29 Anion Gap 10 BUN 62 H Creatinine 8.24 H Estim Creat Clear Calc 12 Estimated GFR 7 L Glucose 75 POC Capillary Glucose 70 117 H Calcium 8.7 09/08/24 09/08/24 05:33 08:12 WBC RBC Hgb Hct MCV MCH MCHC RDW Plt Count MPV Immature Gran % (Auto) Neut % (Auto) Lymph % (Auto) Piatt % (Auto) Eos % (Auto) Baso % (Auto) Lymph # (Auto) Piatt # (Auto) Eos # (Auto) Baso # (Auto) Abs Immat Gran (auto) Absolute Neuts (auto) Absolute Nucleated RBC Nucleated RBC % Platelet Estimate Anisocytosis Ovalocytes [place] Cells Schistocytes PT INR Sodium Potassium Chloride Carbon Dioxide Anion Gap BUN Creatinine Estim Creat Clear Calc Estimated GFR Glucose POC Capillary Glucose 73 87 Calcium
[2024-09-08] MEDS: TAMSULOSIN HCL 0.4 MG CAPSULE PO ×2 (09:10→17:26)
[2024-09-08] MEDS: ATORVASTATIN 40 MG TABLET 80 MG PO (09:10)
[2024-09-08] MEDS: calcitrioL 0.25 MCG CAPSULE PO (09:10)
[2024-09-08] MEDS: PANTOPRAZOLE 40 MG TABLET PO (09:10)
[2024-09-08] MEDS: valACYclovir HCL 500 MG TABLET PO (09:10)
[2024-09-08] MEDS: cycloSPORINE 0.4 ML OPHTH SOLUTION 1 DROP EACH EYE ×2 (09:11→20:56)
[2024-09-08] MEDS: ASPIRIN 81 MG CHEWABLE TABLET PO (09:11)
[2024-09-08] MEDS: EZETIMIBE 10 MG TABLET PO (09:11)
[2024-09-08] MEDS: CALCIUM ACETATE 667 MG TABLET PO ×4 (09:11→20:54)
[2024-09-08] MEDS: METOPROLOL TARTRATE 25 MG TABLET PO (09:12)
[2024-09-08] MEDS: INSULIN GLARGINE (*BKC) 100 UNITS/ML 35 UNITS SUB-Q ×2 (09:47→20:55)
[2024-09-08 13:15] LABS: Glucose Point of Care 111 mg/dl (65-105)
[2024-09-08] MEDS: INSULIN ASPART (*BKC) 100 UNITS/ML 7 UNITS SUB-Q (13:21)
[2024-09-08] MEDS: GENTAMICIN SULFATE 0.1% OINT 15 GM TUBE 1 APPLIC TOPICAL (13:22)
[2024-09-08 17:25] LABS: Glucose Point of Care 51 mg/dl (65-105)
[2024-09-08] MEDS: WARFARIN (*PBKC) 7.5 MG TABLET PO (17:26)
[2024-09-08 17:46] LABS: Glucose Point of Care 97 mg/dl (65-105)
--- NOTE | 2024-09-08 18:00 | P.PNCA_ITS ---
Progress Note: A&P Assessment and Plan (1) H/O mechanical aortic valve replacement: Code(s): Z95.2 - Presence of prosthetic heart valve Status: Acute Plan History of mechanical aortic valve replacement on X valve Paroxysmal atrial fibrillation End-stage renal disease on hemodialysis DKA on presentation Hypertension Hypothyroidism Mixed dyslipidemia Plan Warfarin with target INR 2-3 since the patient had possible atrial fibrillation increase metoprolol dose to 50 mg b.i.d. Continue statin Subjective Date/time seen: 09/08/24 18:00 Interval history: no acute events telemetry AFib with RVR and possible atrial flutter Review of Systems Review of Systems: All systems reviewed & are unremarkable except as noted in HPI and below Exam Const: General: comfortable HENMT: Mouth: Yes moist mucous membranes Eyes: EOM: EOMs intact bilaterally Neck: Neck: no JVD Resp: Auscultation: clear to auscultation bilaterally Cardio: Rate: tachycardic Rhythm: abnormal rhythm irregularly irregular Other: click of mechanical GI: GI Palp: Yes Soft to palpation Extrem: General: pedal edema Objective Data Vital Signs Vital Signs: Vital Signs - 24 hr 09/07/24 20:00 09/07/24 20:00 09/07/24 21:25 Temperature 36.4 C Pulse Rate 105 H 106 H Respiratory Rate 16 Blood Pressure 126/75 Pulse Oximetry 94 Oxygen Delivery Room Air 09/07/24 21:37 09/08/24 00:00 09/08/24 04:00 Temperature Pulse Rate 112 H 98 113 H Respiratory Rate Blood Pressure Pulse Oximetry Oxygen Delivery 09/08/24 06:05 09/08/24 08:00 09/08/24 09:12 Temperature 36.7 C Pulse Rate 115 H 116 H 116 H Respiratory Rate 14 14 Blood Pressure 120/73 Pulse Oximetry 97 97 Oxygen Delivery Room Air 09/08/24 10:57 09/08/24 16:00 Temperature 36.6 C 36.9 C Pulse Rate 116 H 110 H Respiratory Rate 14 16 Blood Pressure 120/73 125/69 Pulse Oximetry 99 Oxygen Delivery Intake/Output Intake/Output: Intake & Output 09/05/24 09/06/24 09/07/24 09/08/24 23:59 23:59 23:59 23:59 Intake Total 2070 1020 1100 960 Output Total 1027 1816 1584 Balance 1043 -794 -484 960 Meds/Results Medications: Active Medications Generic Name Dose Route Start Last Admin Trade Name Freq PRN Reason Stop Dose Admin Acetaminophen 650 mg 08/31/24 19:35 09/06/24 12:09 Acetaminophen 325 Mg Tablet PO 650 mg Q4H PRN Administration Mild Pain (1-3) or Fever Albuterol 2.5 mg 08/31/24 13:59 Albuterol Sulfate Neb 2.5 Mg/3 Ml Inh INHALATION Q4HRT PRN Shortness Of Breath Or Wheezing Albuterol 1 puff 08/31/24 22:48 Albuterol Sulfate (*Sp) Aerosol 1 Puff INHALATION Q6HRT PRN shortness of breath or wheezing Aspirin 81 mg 09/01/24 09:00 09/08/24 09:11 Aspirin 81 Mg Chewable Tablet PO 81 mg DAILY ASHLEY Administration Atorvastatin Calcium 80 mg 09/01/24 09:00 09/08/24 09:10 Atorvastatin 40 Mg Tablet PO 80 mg DAILY ASHLEY Administration Benzocaine 1 lozenge 09/06/24 06:29 Benzocaine/Menthol (*Bkc) 18 Ea Lozenge PO PRN PRN Sore Throat Calcitriol 0.25 mcg 09/01/24 09:00 09/08/24 09:10 Calcitriol 0.25 Mcg Capsule PO 0.25 mcg QAM ASHLEY Administration Calcium Acetate 667 mg 08/31/24 21:00 09/08/24 17:26 Calcium Acetate 667 Mg Tablet PO 667 mg QID ASHLEY Administration Cyclobenzaprine HCl 10 mg 08/31/24 23:58 09/01/24 00:03 Cyclobenzaprine Hcl 10 Mg Tablet PO 10 mg Q8H PRN Administration muscle spasm Cyclosporine 1 drop 08/31/24 22:50 09/08/24 09:11 Cyclosporine 0.4 Ml Ophth Solution EACH EYE 1 drop Q12HR ASHLEY Administration Dextrose 12.5 gm 09/01/24 10:48 Dextrose 50% 25 Gm/50 Ml Syringe IV PUSH PRN PRN Hypoglycemia Protocol Ezetimibe 10 mg 09/01/24 09:00 09/08/24 09:11 Ezetimibe 10 Mg Tablet PO 10 mg DAILY ASHLEY Administration Erythromycin 1 applic 08/31/24 23:05 09/07/24 21:39 Erythromycin Ophth Ointment 1 Gm Tube EACH EYE Not Given HS ASHLEY Gentamicin Sulfate 1 applic 09/01/24 17:00 09/08/24 13:22 Gentamicin Sulfate 0.1% Oint 15 Gm Tube TOPICAL 1 applic DAILY ASHLEY Administration Glucagon 1 mg 09/01/24 10:48 Glucagon For Inj 1 Mg Vial IM PRN PRN Hypoglycemia Protocol Glucose 15 gm 09/01/24 10:48 Glucose Oral Gel 15 Gm Of Glucse In 37.5 Gm Tube PO PRN PRN Hypoglycemia Protocol Hydromorphone HCl 0.5 mg 08/31/24 19:39 09/08/24 02:53 Hydromorphone Hcl Inj (*Crx) 1 Mg/Ml Syr IV PUSH 0.5 mg Q3H PRN Administration Pain Rated 7-10 Dextrose 1,000 mls @ 100 mls/hr 09/01/24 10:48 Dextrose 5% 1,000 Ml IVPB PRN PRN Hypoglycemia Protocol Insulin Aspart 4 - 8 units 09/01/24 12:00 09/08/24 17:28 Insulin Aspart (*Bkc) 100 Units/Ml SUB-Q Not Given TIDWM [facility] Protocol Insulin Aspart 2 - 4 units 09/01/24 21:00 09/07/24 21:38 Insulin Aspart (*Bkc) 100 Units/Ml SUB-Q Not Given HS [facility] Protocol Insulin Aspart 7 units 09/04/24 12:00 09/08/24 17:28 Insulin Aspart (*Bkc) 100 Units/Ml SUB-Q Not Given TIDWM [facility] Insulin Glargine 35 units 09/04/24 08:49 09/08/24 09:47 Insulin Glargine (*Bkc) 100 Units/Ml SUB-Q 35 units Q12HR [facility] Administration Levothyroxine Sodium 25 mcg 09/01/24 06:30 09/08/24 05:30 Levothyroxine Sodium 25 Mcg Tablet PO 25 mcg DAILY@0630 [facility] Administration Metoclopramide HCl 10 mg 09/05/24 17:31 09/05/24 17:49 Metoclopramide Hcl Inj 10 Mg/2 Ml Vial IV PUSH 10 mg Q6HR PRN Administration nausea Metoprolol Tartrate 25 mg 09/03/24 09:00 09/08/24 09:12 Metoprolol Tartrate 25 Mg Tablet PO 25 mg Q12HR ASHLEY Administration Nitroglycerin 0.4 mg 08/31/24 22:48 Nitroglycerin Sl 0.4 Mg Tablet SUBLINGUAL Q5MIN PRN Chest Pain Oxycodone HCl 5 mg 08/31/24 19:39 09/08/24 17:26 Oxycodone Hcl (*Crx) 5 Mg Tab Ir PO 5 mg Q4H PRN Administration Pain Rated 7-10 Pantoprazole Sodium 40 mg 09/01/24 09:00 09/08/24 09:10 Pantoprazole 40 Mg Tablet PO 40 mg QAM ASHLEY Administration Tamsulosin HCl 0.4 mg 08/31/24 19:45 09/08/24 17:26 Tamsulosin Hcl 0.4 Mg Capsule PO 0.4 mg BID ASHLEY Administration Valacyclovir HCl 500 mg 09/05/24 09:00 09/08/24 09:10 Valacyclovir Hcl 500 Mg Tablet PO 500 mg DAILY ASHLEY Administration Warfarin Sodium 7.5 mg 09/07/24 17:00 09/08/24 17:26 Warfarin (*Pbkc) 7.5 Mg Tablet PO 7.5 mg DAILY@1700 ASHLEY Administration Radiology Results: ITS Impressions Abdomen Ultrasound 09/01/24 09:21 IMPRESSION: Cholelithiasis Chest X-Ray 09/08/24 17:48 IMPRESSION: Mild interstitial edema. Subsegmental left basilar atelectasis/consolidation. Small left pleural effusion. Labs Labs: Laboratory Results - last 24 hr 09/07/24 09/07/24 09/08/24 21:27 23:11 05:03 WBC 7.4 RBC 3.56 L Hgb 11.0 L Hct 33.5 L MCV 94.1 MCH 30.9 MCHC 32.8 RDW 15.4 H Plt Count 205 MPV 10.0 Immature Gran % (Auto) 0.4 Neut % (Auto) 53.9 Lymph % (Auto) 19.5 [place] % (Auto) 21.0 H Eos % (Auto) 4.7 H Baso % (Auto) 0.5 Lymph # (Auto) 1.44 [place] # (Auto) 1.6 H Eos # (Auto) 0.4 H Baso # (Auto) 0.0 Abs Immat Gran (auto) 0.03 Absolute Neuts (auto) 4.0 Absolute Nucleated RBC 0.000 Nucleated RBC % 0.0 Platelet Estimate Adequate Anisocytosis 1+ Ovalocytes 1+ [place] Cells 1+ Schistocytes None seen PT 18.7 H INR 1.5 Sodium 135 L Potassium 3.7 Chloride 96 L Carbon Dioxide 29 Anion Gap 10 BUN 62 H Creatinine 8.24 H Estim Creat Clear Calc 12 Estimated GFR 7 L Glucose 75 POC Capillary Glucose 70 117 H Calcium 8.7 09/08/24 09/08/24 09/08/24 05:33 08:12 13:12 WBC RBC Hgb Hct MCV MCH MCHC RDW Plt Count MPV Immature Gran % (Auto) Neut % (Auto) Lymph % (Auto) [place] % (Auto) Eos % (Auto) Baso % (Auto) Lymph # (Auto) [place] # (Auto) Eos # (Auto) Baso # (Auto) Abs Immat Gran (auto) Absolute Neuts (auto) Absolute Nucleated RBC Nucleated RBC % Platelet Estimate Anisocytosis Ovalocytes [place] Cells Schistocytes PT INR Sodium Potassium Chloride Carbon Dioxide Anion Gap BUN Creatinine Estim Creat Clear Calc Estimated GFR Glucose POC Capillary Glucose 73 87 111 H Calcium 09/08/24 09/08/24 17:00 17:43 WBC RBC Hgb Hct MCV MCH MCHC RDW Plt Count MPV Immature Gran % (Auto) Neut % (Auto) Lymph % (Auto) [place] % (Auto) Eos % (Auto) Baso % (Auto) Lymph # (Auto) [place] # (Auto) Eos # (Auto) Baso # (Auto) Abs Immat Gran (auto) Absolute Neuts (auto) Absolute Nucleated RBC Nucleated RBC % Platelet Estimate Anisocytosis Ovalocytes [place] Cells Schistocytes PT INR Sodium Potassium Chloride Carbon Dioxide Anion Gap BUN Creatinine Estim Creat Clear Calc Estimated GFR Glucose POC Capillary Glucose 51 L* 97 Calcium
[2024-09-08 20:33] LABS: Glucose Point of Care 78 mg/dl (65-105)
[2024-09-08] MEDS: METOPROLOL TARTRATE 50 MG TAB PO (20:54)
[2024-09-08] MEDS: ERYTHROMYCIN OPHTH OINTMENT 1 GM TUBE 1 APPLIC EACH EYE (20:56)
[2024-09-09] VITALS (13 sets, daily range): BP systolic 108–135; BP diastolic 64–87; PULSE 63–120; RESP 16–18; TEMP 36.4–36.9; O2SAT 93–96
[2024-09-09] MEDS: LEVOTHYROXINE SODIUM 25 MCG TABLET PO (05:46)
[2024-09-09 06:20] LABS: Prothrombin Time 22.9 Seconds (11.1-14.7)
[2024-09-09 08:23] LABS: Glucose Point of Care 67 mg/dl (65-105)
[2024-09-09] MEDS: METOPROLOL TARTRATE 50 MG TAB PO ×2 (08:23→20:25)
[2024-09-09] MEDS: valACYclovir HCL 500 MG TABLET PO (08:24)
[2024-09-09] MEDS: EZETIMIBE 10 MG TABLET PO (08:24)
[2024-09-09] MEDS: CALCIUM ACETATE 667 MG TABLET PO ×4 (08:24→20:25)
[2024-09-09] MEDS: PANTOPRAZOLE 40 MG TABLET PO (08:24)
[2024-09-09] MEDS: TAMSULOSIN HCL 0.4 MG CAPSULE PO ×2 (08:24→17:09)
[2024-09-09] MEDS: ASPIRIN 81 MG CHEWABLE TABLET PO (08:24)
[2024-09-09] MEDS: calcitrioL 0.25 MCG CAPSULE PO (08:24)
[2024-09-09] MEDS: oxyCODONE HCL (*CRX) 5 MG TAB IR PO ×2 (08:24→20:28)
[2024-09-09] MEDS: ATORVASTATIN 40 MG TABLET 80 MG PO (08:24)
[2024-09-09] MEDS: GENTAMICIN SULFATE 0.1% OINT 15 GM TUBE 1 APPLIC TOPICAL (08:28)
--- NOTE | 2024-09-09 08:41 | P.PNIM_ITS ---
Progress Note: A&P Assessment and Plan (1) Type 1 diabetes mellitus: Qualifiers: Diabetes mellitus complication detail: without coma Diabetes mellitus complication status: with ketoacidosis Qualified Code(s): E10.10 - Type 1 diabetes mellitus with ketoacidosis without coma Code(s): E10.9 - Type 1 diabetes mellitus without complications Status: Acute (2) DKA (diabetic ketoacidosis): Qualifiers: Diabetes mellitus complication detail: without coma Diabetes mellitus type: type 1 Qualified Code(s): E10.10 - Type 1 diabetes mellitus with ketoacidosis without coma Code(s): E11.10 - Type 2 diabetes mellitus with ketoacidosis without coma Status: Acute (3) Cholelithiasis: Qualifiers: Biliary obstruction: without biliary obstruction Cholecystitis presence: without cholecystitis Cholelithiasis location: gallbladder Qualified Code(s): K80.20 - Calculus of gallbladder without cholecystitis without obstruction Code(s): K80.20 - Calculus of gallbladder without cholecystitis without obstruction Status: Acute (4) End stage renal disease on dialysis: Code(s): N18.6 - End stage renal disease; Z99.2 - Dependence on renal dialysis Status: Acute (5) Essential hypertension: Code(s): I10 - Essential (primary) hypertension Status: Chronic (6) Paroxysmal atrial fibrillation: Code(s): I48.0 - Paroxysmal atrial fibrillation Status: Acute (7) Sepsis: Code(s): A41.9 - Sepsis, unspecified organism Status: Acute (8) Pancytopenia: Code(s): D61.818 - Other pancytopenia Status: Acute (9) Acute hypoxemic respiratory failure: Code(s): J96.01 - Acute respiratory failure with hypoxia Status: Acute (10) ESRD on peritoneal dialysis: Code(s): N18.6 - End stage renal disease; Z99.2 - Dependence on renal dialysis Status: Acute (11) Patient on peritoneal dialysis: Code(s): Z99.2 - Dependence on renal dialysis Status: Acute (12) End stage renal disease: Code(s): N18.6 - End stage renal disease Status: Chronic (13) Hyperglycemia due to diabetes mellitus: Code(s): E11.65 - Type 2 diabetes mellitus with hyperglycemia Status: Acute (14) Type 1 diabetes mellitus with hyperglycemia: Code(s): E10.65 - Type 1 diabetes mellitus with hyperglycemia Status: Chronic Plan Diabetic ketoacidosis: Code(s): E11.10 - Type 2 diabetes mellitus with ketoacidosis without coma Status: Acute Assessment and Plan: Pt will be given 1 L IVF bolus On admission further fluids were held due to patient's end-stage renal disease Insulin infusion was started and Q1H glucose monitoring was done Serial labs were done His anion gap closed and and patient has been transition to subcutaneous insulin he is tolerating p.o. diet Consult dietitian and senior health educator increase Lantus today continue Accu-Cheks and sliding scale insulin ESRD on peritoneal dialysis: Code(s): N18.6 - End stage renal disease; Z99.2 - Dependence on renal dialysis Status: Acute Assessment and Plan: Patient is getting PD every night. 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 Chest x-ray shows left lower lobe infiltrate suggestive of pneumonia. Patient also has right upper quadrant tenderness and has history of cholelithiasis Due to his as treatment disease be given conservative amount of IV fluids and 1 L fluid bolus was get Blood cultures, UA and micro are negative procalcitonin level was 1.6 CT chest abdomen pelvis could not be done as patient was unable to lay flat right upper quadrant ultrasound showed cholelithiasis but no evidence of cholecystitis, patient seen by surgery, no intervention at this time sent peritoneal fluid for cytology and was negative and preliminary cultures are negative - discontinue vancomycin. Switched Zosyn to p.o. Augmentin completed 09/07. Switched azithromycin to p.o.a nd completed Status post Jonn-Synephrine for greater than 48 hours Pneumonia: Qualifiers: Pneumonia type: due to unspecified organism Laterality: left Lung lo cation: lower lobe of lung Qualified Code(s): J18.9 - Pneumonia, unspecified organism Code(s): J18.9 - Pneumonia, unspecified organism Status: Acute Assessment and Plan: See above Cholelithiasis: Qualifiers: Cholelithiasis location: gallbladder Cholecystitis presence: without cholecystitis Biliary obstruction: without biliary obstruction Qualified Code(s): K80.20 - Calculus of gallbladder without cholecystitis without obstruction Code(s): K80.20 - Calculus of gallbladder without cholecystitis without obstruction Status: Acute Assessment and Plan: Tenderness in right upper quadrant. right upper quadrant ultrasound showed cholelithiasis with no evidence of cholecystitis. Patient was seen by General surgery and recommend low-fat diet at this time. No plan for surgical intervention at the moment General surgeon does not recommend surgical intervention except for true emergent basis. If he were to require surgery, he would be better suited at a tertiary care facility due to his very low cardiac ejection fraction and other medical issues. Abdominal pain: Code(s): R10.9 - Unspecified abdominal pain Status: Resolved Assessment and Plan: See above Hypertension: Code(s): I10 - Essential (primary) hypertension Status: Chronic Assessment and Plan: Blood pressure borderline Hold amlodipine and beta-umair upon arrival Blood pressure bumped up, resume beta-umair 25 mg b.i.d. p.o. Paroxysmal atrial fibrillation: Code(s): I48.0 - Paroxysmal atrial fibrillation Status: Acute Assessment and Plan: resume beta-umair anticoagulated with warfarin -INR 1.4 Increase warfarin 5mg from 3 mg 09/06 Increase warfarin 7.5mg from 5 mg 09/07, INR 1.4 >1.5 on 09/08 decrease warfarin to 5 INR 2.0 09/09 Severe systolic heart failure Echocardiogram September 2023 Left ventricular systolic function is severely reduced, estimated at 20-25%. Patient does not know he has severe chronic systolic heart failure Patient does not have AICD Repeat echocardiogram, 1. Left ventricular chamber dimension is mildly enlarged. 2. There is mildly increased left ventricular wall thickness. 3. Left ventricular systolic function is severely reduced with an ejection fraction by Biplane Method of Discs of 25 %. 4. Right ventricular chamber dimension is normal. 5. Right ventricular systolic function is reduced. 6. Left atrial chamber dimension is mildly enlarged. 7. Right atrial chamber dimension is mildly enlarged. 8. There is no regurgitation of the mechanical aortic valve. Mean gradient of 6mmHg. Valve is well seated and appears to be functioning appropriately. 9. There is mild mitral valve regurgitation. 10. There is mild tricuspid valve regurgitation. 11. Pulmonary hypertension, estimated pulmonary arterial systolic pressure is 51 mmHg. Consult cardiology for evaluation treatment Appreciate cardiology consultation, Dinkey Driver recommends event monitor on discharge to confirm a diagnosis of atrial fibrillation since target INR would be higher DVT prophylaxis -resume warfarin Stress ulcer prophylaxis -continue home PPI Nutrition - diet order Code Status - Full Code PT OT incentive spirometry up in chair Subjective Date/time seen: 09/09/24 08:41 Interval history: I saw exam patient today, patient denies dyspnea chest pain palpitation, lightheadedness. Has general weakness,. Labs reviewed, afebrile blood pressure stable. INR 2.0 Exam Narrative: GENERAL: Pleasant, in no acute distress. Well-nourished. - EYES: EOMI. Anicteric. - HENT: Moist mucous membranes. - LUNGS: Coarse breath sound bilateral base no wheezing, rhonchi, or rales. - CARDIOVASCULAR: Regular rate and rhyth m. No murmur. No JVD. - ABDOMEN: Soft, non-tender and non-dist ended. No palpable masses. - EXTREMITIES: No edema. Peripheral puls es 2+. Non-tender. - NEUROLOGIC: No focal neurological defi cits. CN II-XII grossly intact. General weakness - PSYCHIATRIC: Awake, Alert and oriented x 3. Appropriate mood and affect. - SKIN: No rashes or lesions. Warm. - LYMPH: No cervical lymphadenopathy. Objective Data Vital Signs Vital Signs: Vital Signs - 24 hr 09/08/24 09:12 09/08/24 10:57 09/08/24 12:00 Temperature 98 F Pulse Rate 116 H 116 H 11 L Respiratory Rate 14 Blood Pressure 120/73 Pulse Oximetry Oxygen Delivery Oxygen Flow Rate Fraction of Inspired Oxygen 09/08/24 16:00 09/08/24 20:00 09/08/24 20:00 Temperature 98.4 F Pulse Rate 110 H 112 H Respiratory Rate 16 Blood Pressure 125/69 Pulse Oximetry 99 Oxygen Delivery Room Air Oxygen Flow Rate Fraction of Inspired Oxygen 09/08/24 20:11 09/08/24 20:54 09/08/24 21:27 Temperature 97.7 F Pulse Rate 114 H 114 H Respiratory Rate 18 Blood Pressure 128/78 Pulse Oximetry 98 Oxygen Delivery Oxygen Flow Rate 0 Fraction of Inspired Oxygen 0 09/09/24 00:00 09/09/24 04:00 09/09/24 04:56 Temperature 98.2 F Pulse Rate 107 H 120 H 63 Respiratory Rate 18 Blood Pressure 108/81 Pulse Oximetry 94 Oxygen Delivery Oxygen Flow Rate Fraction of Inspired Oxygen 09/09/24 08:23 Temperature Pulse Rate 115 H Respiratory Rate Blood Pressure Pulse Oximetry Oxygen Delivery Oxygen Flow Rate Fraction of Inspired Oxygen Intake/Output Intake/Output: Intake & Output 09/06/24 09/07/24 09/08/24 09/09/24 23:59 23:59 23:59 23:59 Intake Total 1020 1100 1200 Output Total 1814 1584 Balance -796 -789 1200 Meds/Results Medications: Active Medications Generic Name Dose Route Start Last Admin Trade Name Freq PRN Reason Stop Dose Admin Acetaminophen 650 mg 08/31/24 19:35 09/06/24 12:09 Acetaminophen 325 Mg Tablet PO 650 mg Q4H PRN Administration Mild Pain (1-3) or Fever Albuterol 2.5 mg 08/31/24 13:59 Albuterol Sulfate Neb 2.5 Mg/3 Ml Inh INHALATION Q4HRT PRN Shortness Of Breath Or Wheezing Albuterol 1 puff 08/31/24 22:48 Albuterol Sulfate (*Sp) Aerosol 1 Puff INHALATION Q6HRT PRN shortness of breath or wheezing Aspirin 81 mg 09/01/24 09:00 09/09/24 08:24 Aspirin 81 Mg Chewable Tablet PO 81 mg DAILY ASHLEY Administration Atorvastatin Calcium 80 mg 09/01/24 09:00 09/09/24 08:24 Atorvastatin 40 Mg Tablet PO 80 mg DAILY ASHLEY Administration Benzocaine 1 lozenge 09/06/24 06:29 Benzocaine/Menthol (*Bkc) 18 Ea Lozenge PO PRN PRN Sore Throat Calcitriol 0.25 mcg 09/01/24 09:00 09/09/24 08:24 Calcitriol 0.25 Mcg Capsule PO 0.25 mcg QAM ASHLEY Administration Calcium Acetate 667 mg 08/31/24 21:00 09/09/24 08:24 Calcium Acetate 667 Mg Tablet PO 667 mg QID ASHLEY Administration Cyclobenzaprine HCl 10 mg 08/31/24 23:58 09/01/24 00:03 Cyclobenzaprine Hcl 10 Mg Tablet PO 10 mg Q8H PRN Administration muscle spasm Cyclosporine 1 drop 08/31/24 22:50 09/08/24 20:56 Cyclosporine 0.4 Ml Ophth Solution EACH EYE 1 drop Q12HR ASHLEY Administration Dextrose 12.5 gm 09/01/24 10:48 Dextrose 50% 25 Gm/50 Ml Syringe IV PUSH PRN PRN Hypoglycemia Protocol Ezetimibe 10 mg 09/01/24 09:00 09/09/24 08:24 Ezetimibe 10 Mg Tablet PO 10 mg DAILY ASHLEY Administration Erythromycin 1 applic 08/31/24 23:05 09/08/24 20:56 Erythromycin Ophth Ointment 1 Gm Tube EACH EYE 1 applic HS ASHLEY Administration Gentamicin Sulfate 1 applic 09/01/24 17:00 09/09/24 08:28 Gentamicin Sulfate 0.1% Oint 15 Gm Tube TOPICAL 1 applic DAILY ASHLEY Administration Glucagon 1 mg 09/01/24 10:48 Glucagon For Inj 1 Mg Vial IM PRN PRN Hypoglycemia Protocol Glucose 15 gm 09/01/24 10:48 Glucose Oral Gel 15 Gm Of Glucse In 37.5 Gm Tube PO PRN PRN Hypoglycemia Protocol Hydromorphone HCl 0.5 mg 08/31/24 19:39 09/08/24 02:53 Hydromorphone Hcl Inj (*Crx) 1 Mg/Ml Syr IV PUSH 0.5 mg Q3H PRN Administration Pain Rated 7-10 Dextrose 1,000 mls @ 100 mls/hr 09/01/24 10:48 Dextrose 5% 1,000 Ml IVPB PRN PRN Hypoglycemia Protocol Insulin Aspart 4 - 8 units 09/01/24 12:00 09/09/24 08:25 Insulin Aspart (*Bkc) 100 Units/Ml SUB-Q Not Given TIDWM [facility] Protocol Insulin Aspart 2 - 4 units 09/01/24 21:00 09/08/24 20:54 Insulin Aspart (*Bkc) 100 Units/Ml SUB-Q Not Given HS [facility] Protocol Insulin Aspart 7 units 09/04/24 12:00 09/09/24 08:25 Insulin Aspart (*Bkc) 100 Units/Ml SUB-Q Not Given TIDWM [facility] Insulin Glargine 35 units 09/04/24 08:49 09/08/24 20:55 Insulin Glargine (*Bkc) 100 Units/Ml SUB-Q 35 units Q12HR ASHLEY Administration Levothyroxine Sodium 25 mcg 09/01/24 06:30 09/09/24 05:46 Levothyroxine Sodium 25 Mcg Tablet PO 25 mcg DAILY@0630 ASHLEY Administration Metoclopramide HCl 10 mg 09/05/24 17:31 09/05/24 17:49 Metoclopramide Hcl Inj 10 Mg/2 Ml Vial IV PUSH 10 mg Q6HR PRN Administration nausea Metoprolol Tartrate 50 mg 09/08/24 21:00 09/09/24 08:23 Metoprolol Tartrate 50 Mg Tab PO 50 mg Q12HR ASHLEY Administration Nitroglycerin 0.4 mg 08/31/24 22:48 Nitroglycerin Sl 0.4 Mg Tablet SUBLINGUAL Q5MIN PRN Chest Pain Oxycodone HCl 5 mg 08/31/24 19:39 09/09/24 08:24 Oxycodone Hcl (*Crx) 5 Mg Tab Ir PO 5 mg Q4H PRN Administration Pain Rated 7-10 Pantoprazole Sodium 40 mg 09/01/24 09:00 09/09/24 08:24 Pantoprazole 40 Mg Tablet PO 40 mg QAM ASHLEY Administration Tamsulosin HCl 0.4 mg 08/31/24 19:45 09/09/24 08:24 Tamsulosin Hcl 0.4 Mg Capsule PO 0.4 mg BID ASHLEY Administration Valacyclovir HCl 500 mg 09/05/24 09:00 09/09/24 08:24 Valacyclovir Hcl 500 Mg Tablet PO 500 mg DAILY ASHLEY Administration Warfarin Sodium 7.5 mg 09/07/24 17:00 09/08/24 17:26 Warfarin (*Pbkc) 7.5 Mg Tablet PO 7.5 mg DAILY@1700 ASHLEY Administration Radiology Results: ITS Impressions Abdomen Ultrasound 09/01/24 09:21 IMPRESSION: Cholelithiasis Chest X-Ray 09/08/24 17:48 IMPRESSION: Mild interstitial edema. Subsegmental left basilar atelectasis/consolidation. Small left pleural effusion. Labs Labs: Laboratory Results - last 24 hr 09/08/24 09/08/24 09/08/24 13:12 17:00 17:43 PT INR POC Capillary Glucose 111 H 51 L* 97 09/08/24 09/09/24 09/09/24 20:09 05:51 08:15 PT 22.9 H D INR 2.0 POC Capillary Glucose 78 67
[2024-09-09] MEDS: cycloSPORINE 0.4 ML OPHTH SOLUTION 1 DROP EACH EYE ×2 (09:17→20:24)
[2024-09-09] MEDS: INSULIN GLARGINE (*BKC) 100 UNITS/ML 35 UNITS SUB-Q ×2 (09:17→20:30)
--- NOTE | 2024-09-09 09:20 | PC.NURSE ---
pt ate full tray of breakfast and reviewed insulin dosing with him, he states he would still take the lantus insulin this morning
[2024-09-09 12:15] LABS: Glucose Point of Care 103 mg/dl (65-105)
--- NOTE | 2024-09-09 16:55 | PM.PNNEP ---
Progress Note: A&P Assessment and Plan (1) End-stage renal disease (ESRD): Code(s): N18.6 - End stage renal disease Status: Acute Assessment and Plan: ESRD: Peritoneal dialysis. His peritoneal dialysate effluent is clear, however will make sure he does not have infection in light of the pain in the right upper quadrant. Peritoneal dialysis was supervised. He does have gallstones and this may well be responsible too. Type 1 diabetes mellitus with hyperglycemia, DKA presentation: Insulin, discussed with patient going needs to get on regular insulin in stable from the pump Hyponatremia in the presence of ESRD: Fluid removed Possible pneumonia with chest x-ray showing infiltrate: Ceftriaxone and azithromycin History of sleep apnea on CPAP, maintain CPAP Anemia of chronic kidney disease: On long acting erythrocyte stimulating agent as needed, usually his hemoglobin sticks around 12 grams/deciliter Secondary hyperparathyroidism: On calcitriol therapy History of coronary artery disease. Diabetes mellitus: Control per ICU team Peritoneal dialysis: -prescriptions altered to his regular schedule -Icodextrin not available in the hospital in the [place] use Dianeal 2.5% -Peritoneal dialysis supervised -look at cultures 09/02: --ESRD: UF is 433 mls,is NOT infected intra peritoneally --maintain same, is not able to use icodextrin in hospital --needs to change to BID insulin to prevent these events --PD orders maintained 09/03: --doing better with ultrafiltration and fluid situation better maintain same dialysis orders --maintain sugar control with insulin --hyponatremia secondary to fluid retention as well as high blood sugars --peritoneal dialysis orders to maintain and supervised dialysis 09/04/2024: --maintain same Dianeal concentration --Fluid state slowly better --sugars up and down --Supervise PD 09/05: --awaiting echo --fluid retention is stable --maintain PD, same Dianeal 2.5% --supervise PD 09/06 --echocardiogram shows ejection fraction of only 25% --further cardiology workup is deferred to his primary software applications designer in [place] --maintain dialysis as per orders --fluid removal as tolerated 09/09/2024: --stable with ultrafiltration --maintaining consistent ultrafiltration with the same dialysis orders --once outpatient he can use Extraneal which will help his fluid balance/retention --cardiology team following. Subjective Date/time seen: 09/09/24 16:55 Interval history: Seen and examined, patient is on peritoneal dialysis. Supervised PERITONEAL DIALYSIS UF [id number] PD orders, same, to continue PD supervised D/w dialysis staff Exam Narrative: VSS his report WD WN, still looks a bit swollen up relative to what his outpatient, JVD is hard to see, irregular rhythm rate, tachycardia, no respiratory distress, soft, non tender abdomen, PD catheter in place, edematous legs and feet, seems better, alert, oriented x 3 no tremors, cognition intact. Objective Data Vital Signs Vital Signs: Vital Signs - 24 hr 09/08/24 20:00 09/08/24 20:00 09/08/24 20:11 Temperature 36.5 C Pulse Rate 112 H 114 H Respiratory Rate 18 Blood Pressure 128/78 Pulse Oximetry 98 Oxygen Delivery Room Air Oxygen Flow Rate Fraction of Inspired Oxygen 09/08/24 20:54 09/08/24 21:27 09/09/24 00:00 Temperature Pulse Rate 114 H 107 H Respiratory Rate Blood Pressure Pulse Oximetry Oxygen Delivery Oxygen Flow Rate 0 Fraction of Inspired Oxygen 0 09/09/24 04:00 09/09/24 04:56 09/09/24 07:52 Temperature 36.8 C 36.8 C Pulse Rate 120 H 63 63 Respiratory Rate 18 18 Blood Pressure 108/81 108/81 Pulse Oximetry 94 Oxygen Delivery Oxygen Flow Rate Fraction of Inspired Oxygen 09/09/24 08:23 09/09/24 13:50 Temperature 36.8 C Pulse Rate 115 H 104 H Respiratory Rate 18 Blood Pressure 118/64 Pulse Oximetry 96 Oxygen Delivery Oxygen Flow Rate Fraction of Inspired Oxygen Intake/Output Intake/Output: Intake & Output 09/06/24 09/07/24 09/08/24 09/09/24 23:59 23:59 23:59 23:59 Intake Total 1020 1100 1200 480 Output Total 1814 1584 1008 Balance -799 -827 1200 528 Meds/Results Medications: Active Medications Generic Name Dose Route Start Last Admin Trade Name Freq PRN Reason Stop Dose Admin Acetaminophen 650 mg 08/31/24 19:35 09/06/24 12:09 Acetaminophen 325 Mg Tablet PO 650 mg Q4H PRN Administration Mild Pain (1-3) or Fever Albuterol 2.5 mg 08/31/24 13:59 Albuterol Sulfate Neb 2.5 Mg/3 Ml Inh INHALATION Q4HRT PRN Shortness Of Breath Or Wheezing Albuterol 1 puff 08/31/24 22:48 Albuterol Sulfate (*Sp) Aerosol 1 Puff INHALATION Q6HRT PRN shortness of breath or wheezing Aspirin 81 mg 09/01/24 09:00 09/09/24 08:24 Aspirin 81 Mg Chewable Tablet PO 81 mg DAILY ASHLEY Administration Atorvastatin Calcium 80 mg 09/01/24 09:00 09/09/24 08:24 Atorvastatin 40 Mg Tablet PO 80 mg DAILY ASHLEY Administration Benzocaine 1 lozenge 09/06/24 06:29 Benzocaine/Menthol (*Bkc) 18 Ea Lozenge PO PRN PRN Sore Throat Calcitriol 0.25 mcg 09/01/24 09:00 09/09/24 08:24 Calcitriol 0.25 Mcg Capsule PO 0.25 mcg QAM ASHLEY Administration Calcium Acetate 667 mg 08/31/24 21:00 09/09/24 12:58 Calcium Acetate 667 Mg Tablet PO 667 mg QID ASHLEY Administration Cyclobenzaprine HCl 10 mg 08/31/24 23:58 09/01/24 00:03 Cyclobenzaprine Hcl 10 Mg Tablet PO 10 mg Q8H PRN Administration muscle spasm Cyclosporine 1 drop 08/31/24 22:50 09/09/24 09:17 Cyclosporine 0.4 Ml Ophth Solution EACH EYE 1 drop Q12HR ASHLEY Administration Dextrose 12.5 gm 09/01/24 10:48 Dextrose 50% 25 Gm/50 Ml Syringe IV PUSH PRN PRN Hypoglycemia Protocol Ezetimibe 10 mg 09/01/24 09:00 09/09/24 08:24 Ezetimibe 10 Mg Tablet PO 10 mg DAILY ASHLEY Administration Erythromycin 1 applic 08/31/24 23:05 09/08/24 20:56 Erythromycin Ophth Ointment 1 Gm Tube EACH EYE 1 applic HS ASHLEY Administration Gentamicin Sulfate 1 applic 09/01/24 17:00 09/09/24 08:28 Gentamicin Sulfate 0.1% Oint 15 Gm Tube TOPICAL 1 applic DAILY ASHLEY Administration Glucagon 1 mg 09/01/24 10:48 Glucagon For Inj 1 Mg Vial IM PRN PRN Hypoglycemia Protocol Glucose 15 gm 09/01/24 10:48 Glucose Oral Gel 15 Gm Of Glucse In 37.5 Gm Tube PO PRN PRN Hypoglycemia Protocol Hydromorphone HCl 0.5 mg 08/31/24 19:39 09/08/24 02:53 Hydromorphone Hcl Inj (*Crx) 1 Mg/Ml Syr IV PUSH 0.5 mg Q3H PRN Administration Pain Rated 7-10 Dextrose 1,000 mls @ 100 mls/hr 09/01/24 10:48 Dextrose 5% 1,000 Ml IVPB PRN PRN Hypoglycemia Protocol Insulin Aspart 4 - 8 units 09/01/24 12:00 09/09/24 12:58 Insulin Aspart (*Bkc) 100 Units/Ml SUB-Q Not Given TIDWM [facility] Protocol Insulin Aspart 2 - 4 units 09/01/24 21:00 09/08/24 20:54 Insulin Aspart (*Bkc) 100 Units/Ml SUB-Q Not Given HS [facility] Protocol Insulin Aspart 7 units 09/04/24 12:00 09/09/24 12:58 Insulin Aspart (*Bkc) 100 Units/Ml SUB-Q Not Given TIDWM [facility] Insulin Glargine 35 units 09/04/24 08:49 09/09/24 09:17 Insulin Glargine (*Bkc) 100 Units/Ml SUB-Q 35 units Q12HR [facility] Administration Levothyroxine Sodium 25 mcg 09/01/24 06:30 09/09/24 05:46 Levothyroxine Sodium 25 Mcg Tablet PO 25 mcg DAILY@0630 [facility] Administration Metoclopramide HCl 10 mg 09/05/24 17:31 09/05/24 17:49 Metoclopramide Hcl Inj 10 Mg/2 Ml Vial IV PUSH 10 mg Q6HR PRN Administration nausea Metoprolol Tartrate 50 mg 09/08/24 21:00 09/09/24 08:23 Metoprolol Tartrate 50 Mg Tab PO 50 mg Q12HR ASHLEY Administration Nitroglycerin 0.4 mg 08/31/24 22:48 Nitroglycerin Sl 0.4 Mg Tablet SUBLINGUAL Q5MIN PRN Chest Pain Oxycodone HCl 5 mg 08/31/24 19:39 09/09/24 08:24 Oxycodone Hcl (*Crx) 5 Mg Tab Ir PO 5 mg Q4H PRN Administration Pain Rated 7-10 Pantoprazole Sodium 40 mg 09/01/24 09:00 09/09/24 08:24 Pantoprazole 40 Mg Tablet PO 40 mg QAM ASHLEY Administration Tamsulosin HCl 0.4 mg 08/31/24 19:45 09/09/24 08:24 Tamsulosin Hcl 0.4 Mg Capsule PO 0.4 mg BID [facility] Administration Valacyclovir HCl 500 mg 09/05/24 09:00 09/09/24 08:24 Valacyclovir Hcl 500 Mg Tablet PO 500 mg DAILY ASHLEY Administration Warfarin Sodium 5 mg 09/09/24 17:00 Warfarin (*Pbkc) 5 Mg Tablet PO DAILY@1700 [facility] Radiology Results: ITS Impressions Abdomen Ultrasound 09/01/24 09:21 IMPRESSION: Cholelithiasis Chest X-Ray 09/08/24 17:48 IMPRESSION: Mild interstitial edema. Subsegmental left basilar atelectasis/consolidation. Small left pleural effusion. Labs Labs: Laboratory Results - last 24 hr 09/08/24 09/08/24 09/08/24 17:00 17:43 20:09 PT INR POC Capillary Glucose 51 L* 97 78 09/09/24 09/09/24 09/09/24 05:51 08:15 12:10 PT 22.9 H D INR 2.0 POC Capillary Glucose 67 103
[2024-09-09 17:05] LABS: Glucose Point of Care 92 mg/dl (65-105)
[2024-09-09] MEDS: WARFARIN (*PBKC) 5 MG TABLET PO (17:09)
[2024-09-09] MEDS: ERYTHROMYCIN OPHTH OINTMENT 1 GM TUBE 1 APPLIC EACH EYE (20:24)
[2024-09-09] MEDS: INSULIN ASPART (*BKC) 100 UNITS/ML SUB-Q (20:33)
[2024-09-09 21:09] LABS: Glucose Point of Care 251 mg/dl (65-105)
[2024-09-10] VITALS (8 sets, daily range): BP systolic 105–110; BP diastolic 58–74; PULSE 97–115; RESP 16–18; TEMP 36.9; O2SAT 96–97
[2024-09-10] MEDS: LEVOTHYROXINE SODIUM 25 MCG TABLET PO (06:00)
[2024-09-10] MEDS: oxyCODONE HCL (*CRX) 5 MG TAB IR PO (06:01)
[2024-09-10 06:04] LABS: Glucose Point of Care 107 mg/dl (65-105)
[2024-09-10 08:23] LABS: Glucose Point of Care 69 mg/dl (65-105)
[2024-09-10] MEDS: EZETIMIBE 10 MG TABLET PO (08:47)
[2024-09-10] MEDS: METOPROLOL TARTRATE 50 MG TAB PO (08:47)
[2024-09-10] MEDS: ASPIRIN 81 MG CHEWABLE TABLET PO (08:47)
[2024-09-10] MEDS: calcitrioL 0.25 MCG CAPSULE PO (08:47)
[2024-09-10] MEDS: TAMSULOSIN HCL 0.4 MG CAPSULE PO (08:47)
[2024-09-10] MEDS: ATORVASTATIN 40 MG TABLET 80 MG PO (08:47)
[2024-09-10] MEDS: PANTOPRAZOLE 40 MG TABLET PO (08:47)
[2024-09-10] MEDS: CALCIUM ACETATE 667 MG TABLET PO ×2 (08:47→12:35)
[2024-09-10] MEDS: cycloSPORINE 0.4 ML OPHTH SOLUTION 1 DROP EACH EYE (08:47)
[2024-09-10] MEDS: valACYclovir HCL 500 MG TABLET PO (08:47)
[2024-09-10] MEDS: GENTAMICIN SULFATE 0.1% OINT 15 GM TUBE 1 APPLIC TOPICAL (08:48)
[2024-09-10 08:50] LABS: Glucose Point of Care 64 mg/dl (65-105)
[2024-09-10 09:47] LABS: Glucose Point of Care 108 mg/dl (65-105)
[2024-09-10 10:05] LABS: Hematocrit 32.1 % (42.0-52.0); Hemoglobin 10.4 g/dL (14.0-18.0); Mean Corpuscular HGB Conc 32.4 g/dl (32-36); Mean Corpuscular Hemoglobin 30.9 pg (26-34); Mean Corpuscular Volume 95.3 fl (80-100); Mean Platelet Volume 9.4 fl (7.4-10.4); Platelet Count Result 170 k/mm3 (150-375); Red Blood Count 3.37 M/mm3 (4.6-6.20); Red Cell Distribution Width 15.3 % (11.5-14.5); White Blood Count 5.6 K/mm3 (4.5-10.0)
[2024-09-10 10:14] LABS: INR 2.5; Prothrombin Time 27.3 Seconds (11.1-14.7)
[2024-09-10 10:22] LABS: Anion Gap 9 mmol/L (4-12); Blood Urea Nitrogen 63 mg/dL (9-20); Calcium 8.8 mg/dL (8.4-10.2); Carbon Dioxide 32 mmol/L (22-30); Chloride 93 mmol/L (98-107); Estimated CRCL calculation 12 ml/min; Estimated Glomerular Filt Rate 6; Glucose 102 mg/dL (65-110); Potassium 3.7 mmol/L (3.4-5.0); Sodium 134 mmol/L (137-145)
[2024-09-10 12:06] LABS: Glucose Point of Care 102 mg/dl (65-105)
--- NOTE | 2024-09-10 13:40 | P.PNIM_ITS ---
Progress Note: A&P Assessment and Plan (1) Type 1 diabetes mellitus: Qualifiers: Diabetes mellitus complication status: with ketoacidosis Diabetes mellitus complication detail: without coma Qualified Code(s): E10.10 - Type 1 diabetes mellitus with ketoacidosis without coma Code(s): E10.9 - Type 1 diabetes mellitus without complications Status: Acute (2) DKA (diabetic ketoacidosis): Qualifiers: Diabetes mellitus complication detail: without coma Diabetes mellitus type: type 1 Qualified Code(s): E10.10 - Type 1 diabetes mellitus with ketoacidosis without coma Code(s): E11.10 - Type 2 diabetes mellitus with ketoacidosis without coma Status: Acute (3) Cholelithiasis: Qualifiers: Cholelithiasis location: gallbladder Cholecystitis presence: without cholecystitis Biliary obstruction: without biliary obstruction Qualified Code(s): K80.20 - Calculus of gallbladder without cholecystitis without obstruction Code(s): K80.20 - Calculus of gallbladder without cholecystitis without obstruction Status: Acute (4) End stage renal disease on dialysis: Code(s): N18.6 - End stage renal disease; Z99.2 - Dependence on renal dialysis Status: Acute (5) Essential hypertension: Code(s): I10 - Essential (primary) hypertension Status: Chronic (6) Paroxysmal atrial fibrillation: Code(s): I48.0 - Paroxysmal atrial fibrillation Status: Acute (7) Sepsis: Code(s): A41.9 - Sepsis, unspecified organism Status: Acute (8) Pancytopenia: Code(s): D61.818 - Other pancytopenia Status: Acute (9) Acute hypoxemic respiratory failure: Code(s): J96.01 - Acute respiratory failure with hypoxia Status: Acute (10) ESRD on peritoneal dialysis: Code(s): N18.6 - End stage renal disease; Z99.2 - Dependence on renal dialysis Status: Acute (11) Patient on peritoneal dialysis: Code(s): Z99.2 - Dependence on renal dialysis Status: Acute (12) End stage renal disease: Code(s): N18.6 - End stage renal disease Status: Chronic (13) Hyperglycemia due to diabetes mellitus: Code(s): E11.65 - Type 2 diabetes mellitus with hyperglycemia Status: Acute (14) Type 1 diabetes mellitus with hyperglycemia: Code(s): E10.65 - Type 1 diabetes mellitus with hyperglycemia Status: Chronic Plan Diabetic ketoacidosis: Code(s): E11.10 - Type 2 diabetes mellitus with ketoacidosis without coma Status: Acute Assessment and Plan: Pt will be given 1 L IVF bolus On admission further fluids were held due to patient's end-stage renal disease Insulin infusion was started and Q1H glucose monitoring was done Serial labs were done His anion gap closed and and patient has been transition to subcutaneous insulin he is tolerating p.o. 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 Chest x-ray shows left lower lobe infiltrate suggestive of pneumonia. Patient also has right upper quadrant tenderness and has history of cholelithiasis Due to his as treatment disease be given conservative amount of IV fluids and 1 L fluid bolus was get Blood cultures, UA and micro are negative procalcitonin level was 1.6 CT chest abdomen pelvis could not be done as patient was unable to lay flat right upper quadrant ultrasound showed cholelithiasis but no evidence of cholecystitis, patient seen by surgery, no intervention at this time sent peritoneal fluid for cytology and was negative and preliminary cultures are negative - discontinue vancomycin. Switched Zosyn to p.o. Augmentin completed 09/07. Switched azithromycin to p.o.a nd completed Status post Jonn-Synephrine for greater than 48 hours Pneumonia: Qualifiers: Pneumonia type: due to unspecified organism Laterality: left Lung lo cation: lower lobe of lung Qualified Code(s): J18.9 - Pneumonia, unspecified organism Code(s): J18.9 - Pneumonia, unspecified organism Status: Acute Assessment and Plan: See above Cholelithiasis: Qualifiers: Cholelithiasis location: gallbladder Cholecystitis presence: without cholecystitis Biliary obstruction: without biliary obstruction Qualified Code(s): K80.20 - Calculus of gallbladder without cholecystitis without obstruction Code(s): K80.20 - Calculus of gallbladder without cholecystitis without obstruction Status: Acute Assessment and Plan: Tenderness in right upper quadrant. right upper quadrant ultrasound showed cholelithiasis with no evidence of cholecystitis. Patient was seen by General surgery and recommend low-fat diet at this time. No plan for surgical intervention at the moment General surgeon does not recommend surgical intervention except for true emergent basis. If he were to require surgery, he would be better suited at a tertiary care facility due to his very low cardiac ejection fraction and other medical issues. now patient is asymptomatic, denies abdomen pain Paroxysmal atrial fibrillation: Code(s): I48.0 - Paroxysmal atrial fibrillation Status: Acute Assessment and Plan: resume beta-umair anticoagulated with warfarin -INR 1.4 Increase warfarin 5mg from 3 mg 09/06 Increase warfarin 7.5mg from 5 mg 09/07, INR 1.4 >1.5 on 09/08 decrease warfarin to 5 INR 2.0 09/09 INR 2.5, will continue warfarin 5 mg daily p.o. on discharge Severe systolic heart failure Echocardiogram September 2023 Left ventricular systolic function is severely reduced, estimated at 20-25%. Patient does not know he has severe chronic systolic heart failure Patient does not have AICD Repeat echocardiogram, 1. Left ventricular chamber dimension is mildly enlarged. 2. There is mildly increased left ventricular wall thickness. 3. Left ventricular systolic function is severely reduced with an ejection fraction by Biplane Method of Discs of 25 %. 4. Right ventricular chamber dimension is normal. 5. Right ventricular systolic function is reduced. 6. Left atrial chamber dimension is mildly enlarged. 7. Right atrial chamber dimension is mildly enlarged. 8. There is no regurgitation of the mechanical aortic valve. Mean gradient of 6mmHg. Valve is well seated and appears to be functioning appropriately. 9. There is mild mitral valve regurgitation. 10. There is mild tricuspid valve regurgitation. 11. Pulmonary hypertension, estimated pulmonary arterial systolic pressure is 51 mmHg. Consult cardiology for evaluation treatment Appreciate cardiology consultation, Software Team Leader recommends event monitor on dis charge to confirm a diagnosis of atrial fibrillation since target INR would be higher Hypertension: Code(s): I10 - Essential (primary) hypertension Status: Chronic Assessment and Plan: Blood pressure borderline Hold amlodipine and beta-umair upon arrival Blood pressure bumped up, resume beta-uamir 25 mg b.i.d. p.o. DVT prophylaxis -resume warfarin Stress ulcer prophylaxis -continue home PPI Nutrition - diet order Code Status - Full Code PT OT incentive spirometry up in chair Subjective Date/time seen: 09/10/24 13:40 Interval history: I saw and exam patient today. Patient denies chest pain, palpitation, shortness breast, abdomen pain nausea vomiting diarrhea. Patient afebrile, blood pressure stable on the lower side, heart rate about 108, telemetry showed AFib. CBC unremarkable, except hemoglobin 10.4 on baseline. Chemistry shows sodium 134. Creatinine 8 point a 4, INR 2.5 Exam Narrative: GENERAL: Pleasant, in no acute distress. Well-nourished. - EYES: EOMI. Anicteric. - HENT: Moist mucous membranes. - LUNGS: Coarse breath sound bilateral base no wheezing, rhonchi, or rales. - CARDIOVASCULAR: Regular rate and rhyth m. No murmur. No JVD. - ABDOMEN: Soft, non-tender and non-dist ended. No palpable masses. - EXTREMITIES: No edema. Peripheral puls es 2+. Non-tender. - NEUROLOGIC: No focal neurological defi cits. CN II-XII grossly intact. General weakness - PSYCHIATRIC: Awake, Alert and oriented x 3. Appropriate mood and affect. - SKIN: No rashes or lesions. Warm. - LYMPH: No cervical lymphadenopathy. Objective Data Vital Signs Vital Signs: Vital Signs - 24 hr 09/09/24 13:50 09/09/24 16:00 09/09/24 20:00 Temperature 98.2 F Pulse Rate 104 H 105 H 114 H Respiratory Rate 18 Blood Pressure 118/64 Pulse Oximetry 96 Oxygen Delivery 09/09/24 20:25 09/09/24 20:36 09/09/24 23:27 Temperature 98.5 F 97.6 F Pulse Rate 110 H 115 H 109 H Respiratory Rate 18 16 Blood Pressure 132/87 135/77 Pulse Oximetry 96 93 Oxygen Delivery 09/10/24 00:00 09/10/24 04:00 09/10/24 05:59 Temperature 98.4 F Pulse Rate 102 H 109 H 110 H Respiratory Rate 16 Blood Pressure 105/74 Pulse Oximetry 97 Oxygen Delivery 09/10/24 08:00 09/10/24 08:45 09/10/24 08:47 Temperature Pulse Rate 114 H 115 H Respiratory Rate Blood Pressure Pulse Oximetry Oxygen Delivery Room Air 09/10/24 13:26 Temperature 98.4 F Pulse Rate 108 H Respiratory Rate 18 Blood Pressure 110/58 L Pulse Oximetry 96 Oxygen Delivery Intake/Output Intake/Output: Intake & Output 09/07/24 09/08/24 09/09/24 09/10/24 23:59 23:59 23:59 23:59 Intake Total 1100 1200 900 800 Output Total 1584 1008 1305 Balance -484 1200 108 505 Meds/Results Medications: Active Medications Generic Name Dose Route Start Last Admin Trade Name Freq PRN Reason Stop Dose Admin Acetaminophen 650 mg 08/31/24 19:35 09/06/24 12:09 Acetaminophen 325 Mg Tablet PO 650 mg Q4H PRN Administration Mild Pain (1-3) or Fever Albuterol 2.5 mg 08/31/24 13:59 Albuterol Sulfate Neb 2.5 Mg/3 Ml Inh INHALATION Q4HRT PRN Shortness Of Breath Or Wheezing Albuterol 1 puff 08/31/24 22:48 Albuterol Sulfate (*Sp) Aerosol 1 Puff INHALATION Q6HRT PRN shortness of breath or wheezing Aspirin 81 mg 09/01/24 09:00 09/10/24 08:47 Aspirin 81 Mg Chewable Tablet PO 81 mg DAILY ASHLEY Administration Atorvastatin Calcium 80 mg 09/01/24 09:00 09/10/24 08:47 Atorvastatin 40 Mg Tablet PO 80 mg DAILY ASHLEY Administration Benzocaine 1 lozenge 09/06/24 06:29 Benzocaine/Menthol (*Bkc) 18 Ea Lozenge PO PRN PRN Sore Throat Calcitriol 0.25 mcg 09/01/24 09:00 09/10/24 08:47 Calcitriol 0.25 Mcg Capsule PO 0.25 mcg QAM ASHLEY Administration Calcium Acetate 667 mg 08/31/24 21:00 09/10/24 12:35 Calcium Acetate 667 Mg Tablet PO 667 mg QID ASHLEY Administration Cyclobenzaprine HCl 10 mg 08/31/24 23:58 09/01/24 00:03 Cyclobenzaprine Hcl 10 Mg Tablet PO 10 mg Q8H PRN Administration muscle spasm Cyclosporine 1 drop 08/31/24 22:50 09/10/24 08:47 Cyclosporine 0.4 Ml Ophth Solution EACH EYE 1 drop Q12HR ASHLEY Administration Dextrose 12.5 gm 09/01/24 10:48 Dextrose 50% 25 Gm/50 Ml Syringe IV PUSH PRN PRN Hypoglycemia Protocol Ezetimibe 10 mg 09/01/24 09:00 09/10/24 08:47 Ezetimibe 10 Mg Tablet PO 10 mg DAILY ASHLEY Administration Erythromycin 1 applic 08/31/24 23:05 09/09/24 20:24 Erythromycin Ophth Ointment 1 Gm Tube EACH EYE 1 applic HS ASHLEY Administration Gentamicin Sulfate 1 applic 09/01/24 17:00 09/10/24 08:48 Gentamicin Sulfate 0.1% Oint 15 Gm Tube TOPICAL 1 applic DAILY ASHLEY Administration Glucagon 1 mg 09/01/24 10:48 Glucagon For Inj 1 Mg Vial IM PRN PRN Hypoglycemia Protocol Glucose 15 gm 09/01/24 10:48 Glucose Oral Gel 15 Gm Of Glucse In 37.5 Gm Tube PO PRN PRN Hypoglycemia Protocol Hydromorphone HCl 0.5 mg 08/31/24 19:39 09/08/24 02:53 Hydromorphone Hcl Inj (*Crx) 1 Mg/Ml Syr IV PUSH 0.5 mg Q3H PRN Administration Pain Rated 7-10 Dextrose 1,000 mls @ 100 mls/hr 09/01/24 10:48 Dextrose 5% 1,000 Ml IVPB PRN PRN Hypoglycemia Protocol Insulin Aspart 4 - 8 units 09/01/24 12:00 09/10/24 12:33 Insulin Aspart (*Bkc) 100 Units/Ml SUB-Q Not Given TIDWM [facility] Protocol Insulin Aspart 2 - 4 units 09/01/24 21:00 09/09/24 20:33 Insulin Aspart (*Bkc) 100 Units/Ml SUB-Q 2 units HS ASHLEY Administration Protocol Insulin Aspart 7 units 09/04/24 12:00 09/10/24 12:35 Insulin Aspart (*Bkc) 100 Units/Ml SUB-Q Not Given TIDWM ASHLEY Insulin Glargine 35 units 09/04/24 08:49 09/10/24 08:45 Insulin Glargine (*Bkc) 100 Units/Ml SUB-Q Not Given Q12HR [facility] Levothyroxine Sodium 25 mcg 09/01/24 06:30 09/10/24 06:00 Levothyroxine Sodium 25 Mcg Tablet PO 25 mcg DAILY@0630 ASHLEY Administration Metoclopramide HCl 10 mg 09/05/24 17:31 09/05/24 17:49 Metoclopramide Hcl Inj 10 Mg/2 Ml Vial IV PUSH 10 mg Q6HR PRN Administration nausea Metoprolol Tartrate 50 mg 09/08/24 21:00 09/10/24 08:47 Metoprolol Tartrate 50 Mg Tab PO 50 mg Q12HR ASHLEY Administration Nitroglycerin 0.4 mg 08/31/24 22:48 Nitroglycerin Sl 0.4 Mg Tablet SUBLINGUAL Q5MIN PRN Chest Pain Oxycodone HCl 5 mg 08/31/24 19:39 09/10/24 06:01 Oxycodone Hcl (*Crx) 5 Mg Tab Ir PO 5 mg Q4H PRN Administration Pain Rated 7-10 Pantoprazole Sodium 40 mg 09/01/24 09:00 09/10/24 08:47 Pantoprazole 40 Mg Tablet PO 40 mg QAM ASHLEY Administration Tamsulosin HCl 0.4 mg 08/31/24 19:45 09/10/24 08:47 Tamsulosin Hcl 0.4 Mg Capsule PO 0.4 mg BID ASHLEY Administration Valacyclovir HCl 500 mg 09/05/24 09:00 09/10/24 08:47 Valacyclovir Hcl 500 Mg Tablet PO 500 mg DAILY ASHLEY Administration Warfarin Sodium 5 mg 09/09/24 17:00 09/09/24 17:09 Warfarin (*Pbkc) 5 Mg Tablet PO 5 mg DAILY@1700 ASHLEY Administration Radiology Results: ITS Impressions Abdomen Ultrasound 09/01/24 09:21 IMPRESSION: Cholelithiasis Chest X-Ray 09/08/24 17:48 IMPRESSION: Mild interstitial edema. Subsegmental left basilar atelectasis/consolidation. Small left pleural effusion. Labs Labs: Laboratory Results - last 24 hr 09/09/24 09/09/24 09/10/24 17:00 20:31 05:58 WBC RBC Hgb Hct MCV MCH MCHC RDW Plt Count MPV PT INR Sodium Potassium Chloride Carbon Dioxide Anion Gap BUN Creatinine Estim Creat Clear Calc Estimated GFR Glucose POC Capillary Glucose 92 251 H 107 H Calcium 09/10/24 09/10/24 09/10/24 08:09 08:48 09:44 WBC RBC Hgb Hct MCV MCH MCHC RDW Plt Count MPV PT INR Sodium Potassium Chloride Carbon Dioxide Anion Gap BUN Creatinine Estim Creat Clear Calc Estimated GFR Glucose POC Capillary Glucose 69 64 L 108 H Calcium 09/10/24 09/10/24 09:57 11:52 WBC 5.6 RBC 3.37 L Hgb 10.4 L Hct 32.1 L MCV 95.3 MCH 30.9 MCHC 32.4 RDW 15.3 H Plt Count 170 MPV 9.4 PT 27.3 H INR 2.5 Sodium 134 L Potassium 3.7 Chloride 93 L Carbon Dioxide 32 H Anion Gap 9 BUN 63 H Creatinine 8.84 H Estim Creat Clear Calc 12 Estimated GFR 6 L Glucose 102 POC Capillary Glucose 102 Calcium 8.8
--- NOTE | 2024-09-10 13:46 | P.DS_ITS ---
DS: Admitting Diagnosis Discharge Date 09/10/24 Admitting Diagnosis (1) Type 1 diabetes mellitus: Qualifiers: Diabetes mellitus complication status: with ketoacidosis Diabetes mellitus complication detail: without coma Qualified Code(s): E10.10 - Type 1 diabetes mellitus with ketoacidosis without coma Code(s): E10.9 - Type 1 diabetes mellitus without complications Status: Acute (2) DKA (diabetic ketoacidosis): Qualifiers: Diabetes mellitus complication detail: without coma Diabetes mellitus type: type 1 Qualified Code(s): E10.10 - Type 1 diabetes mellitus with ketoacidosis without coma Code(s): E11.10 - Type 2 diabetes mellitus with ketoacidosis without coma Status: Acute (3) Cholelithiasis: Qualifiers: Cholelithiasis location: gallbladder Cholecystitis presence: without cholecystitis Biliary obstruction: without biliary obstruction Qualified Code(s): K80.20 - Calculus of gallbladder without cholecystitis without obstruction Code(s): K80.20 - Calculus of gallbladder without cholecystitis without obstruction Status: Acute (4) End stage renal disease on dialysis: Code(s): N18.6 - End stage renal disease; Z99.2 - Dependence on renal dialysis Status: Acute (5) Essential hypertension: Code(s): I10 - Essential (primary) hypertension Status: Chronic (6) Paroxysmal atrial fibrillation: Code(s): I48.0 - Paroxysmal atrial fibrillation Status: Acute (7) Sepsis: Code(s): A41.9 - Sepsis, unspecified organism Status: Acute (8) Pancytopenia: Code(s): D61.818 - Other pancytopenia Status: Acute (9) Acute hypoxemic respiratory failure: Code(s): J96.01 - Acute respiratory failure with hypoxia Status: Acute (10) ESRD on peritoneal dialysis: Code(s): N18.6 - End stage renal disease; Z99.2 - Dependence on renal dialysis Status: Acute (11) Patient on peritoneal dialysis: Code(s): Z99.2 - Dependence on renal dialysis Status: Acute (12) End stage renal disease: Code(s): N18.6 - End stage renal disease Status: Chronic (13) Hyperglycemia due to diabetes mellitus: Code(s): E11.65 - Type 2 diabetes mellitus with hyperglycemia Status: Acute (14) Type 1 diabetes mellitus with hyperglycemia: Code(s): E10.65 - Type 1 diabetes mellitus with hyperglycemia Status: Chronic DS: Discharge Diagnosis Discharge Diagnosis (1) Type 1 diabetes mellitus: Qualifiers: Diabetes mellitus complication status: with ketoacidosis Diabetes mellitus complication detail: without coma Qualified Code(s): E10.10 - Type 1 diabetes mellitus with ketoacidosis without coma Code(s): E10.9 - Type 1 diabetes mellitus without complications Status: Acute (2) DKA (diabetic ketoacidosis): Qualifiers: Diabetes mellitus complication detail: without coma Diabetes mellitus type: type 1 Qualified Code(s): E10.10 - Type 1 diabetes mellitus with ketoacidosis without coma Code(s): E11.10 - Type 2 diabetes mellitus with ketoacidosis without coma Status: Acute (3) Cholelithiasis: Qualifiers: Cholelithiasis location: gallbladder Cholecystitis presence: without cholecystitis Biliary obstruction: without biliary obstruction Qualified Code(s): K80.20 - Calculus of gallbladder without cholecystitis without obstruction Code(s): K80.20 - Calculus of gallbladder without cholecystitis without obstruction Status: Acute (4) End stage renal disease on dialysis: Code(s): N18.6 - End stage renal disease; Z99.2 - Dependence on renal dialysis Status: Acute (5) Essential hypertension: Code(s): I10 - Essential (primary) hypertension Status: Chronic (6) Paroxysmal atrial fibrillation: Code(s): I48.0 - Paroxysmal atrial fibrillation Status: Acute (7) Sepsis: Code(s): A41.9 - Sepsis, unspecified organism Status: Acute (8) Pancytopenia: Code(s): D61.818 - Other pancytopenia Status: Acute (9) Acute hypoxemic respiratory failure: Code(s): J96.01 - Acute respiratory failure with hypoxia Status: Acute (10) ESRD on peritoneal dialysis: Code(s): N18.6 - End stage renal disease; Z99.2 - Dependence on renal dialysis Status: Acute (11) Patient on peritoneal dialysis: Code(s): Z99.2 - Dependence on renal dialysis Status: Acute (12) End stage renal disease: Code(s): N18.6 - End stage renal disease Status: Chronic (13) Hyperglycemia due to diabetes mellitus: Code(s): E11.65 - Type 2 diabetes mellitus with hyperglycemia Status: Acute (14) Type 1 diabetes mellitus with hyperglycemia: Code(s): E10.65 - Type 1 diabetes mellitus with hyperglycemia Status: Chronic DS: Summary Hospital Course Hospital Course: 54-year-old male with past medical history of peritoneal dialysis, chronic back pain, insulin-dependent diabetic, atrial fibrillation, gout, and CHF presents the hospital due to hyperglycemia. Patient states that he was recently started on insulin pump I was reading high yesterday believes that the insulin pump was working. Patient also states that earlier this week he slipped and fell on the ice and now has chronic back pain has become worse. The emergency room to try to CT scan him however due to acute back pain he could not tolerate the scan. He also complains of right knee pain. Emergency room patient's hemoglobin was 10.8, sodium of 124, potassium of 5.5, glucose of 923, lactic acid of 4.1, patient was transferred to ICU for DKA and started on insulin drip. The following med issues have been addressed during hospitalization Diabetic ketoacidosis: Code(s): E11.10 - Type 2 diabetes mellitus with ketoacidosis without coma Status: Acute Assessment and Plan: Pt will be given 1 L IVF bolus On admission further fluids were held due to patient's end-stage renal disease Insulin infusion was started and Q1H glucose monitoring was done Serial labs were done His anion gap closed and and patient has been transition to subcutaneous insulin he is tolerating p.o. diet Consult dietitian and childbirth educator Ketoacidosis has resolved, patient is on glargine 35 unit b.i.d., aspart 7 units before meal, and also on sliding scale high-dose a.c. q.h.s. Continued the insulins on discharge ESRD on peritoneal dialysis: Code(s): N18.6 - End stage renal disease; Z99.2 - Dependence on renal dialysis Status: Acute Assessment and Plan: Patient is getting PD every night. 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 Chest x-ray shows left lower lobe infiltrate suggestive of pneumonia. Patient also has right upper quadrant tenderness and has history of cholelithiasis Due to his as treatment disease be given conservative amount of IV fluids and 1 L fluid bolus was get Blood cultures, UA and micro are negative procalcitonin level was 1.6 CT chest abdomen pelvis could not be done as patient was unable to lay flat right upper quadrant ultrasound showed cholelithiasis but no evidence of cholecystitis, patient seen by surgery, no intervention at this time sent peritoneal fluid for cytology and was negative and preliminary cultures are negative - discontinue vancomycin. Switched Zosyn to p.o. Augmentin completed 09/07. Switched azithromycin to p.o.and completed Status post Jonn-Synephrine for greater than 48 hours resolved Pneumonia: Qualifiers: Pneumonia type: due to unspecified organism Laterality: left Lung lo cation: lower lobe of lung Qualified Code(s): J18.9 - Pneumonia, unspecified organism Code(s): J18.9 - Pneumonia, unspecified organism Status: Acute Assessment and Plan: See above Cholelithiasis: Qualifiers: Cholelithiasis location: gallbladder Cholecystitis presence: without cholecystitis Biliary obstruction: without biliary obstruction Qualified Code(s): K80.20 - Calculus of gallbladder without cholecystitis without obstruction Code(s): K80.20 - Calculus of gallbladder without cholecystitis without obstruction Status: Acute Assessment and Plan: Tenderness in right upper quadrant. right upper quadrant ultrasound showed cholelithiasis with no evidence of cholecystitis. Patient was seen by General surgery and recommend low-fat diet at this time. No plan for surgical intervention at the moment General surgeon does not recommend surgical intervention except for true emergent basis. If he were to require surgery, he would be better suited at a tertiary care facility due to his very low cardiac ejection fraction and other medical issues. now patient is asymptomatic, denies abdomen pain Paroxysmal atrial fibrillation: Code(s): I48.0 - Paroxysmal atrial fibrillation Status: Acute Assessment and Plan: resume beta-umair anticoagulated with warfarin -INR 1.4 Increase warfarin 5mg from 3 mg 09/06 Increase warfarin 7.5mg from 5 mg 09/07, INR 1.4 >1.5 on 09/08 decrease warfarin to 5 INR 2.0 09/09 INR 2.5, will continue warfarin 5 mg daily p.o. continue metoprolol 75 mg q.12 hours p.o. on discharge Severe systolic heart failure Echocardiogram September 2023 Left ventricular systolic function is severely reduced, estimated at 20-25%. Patient does not know he has severe chronic systolic heart failure Patient does not have AICD Repeat echocardiogram, 1. Left ventricular chamber dimension is mildly enlarged. 2. There is mildly increased left ventricular wall thickness. 3. Left ventricular systolic function is severely reduced with an ejection fraction by Biplane Method of Discs of 25 %. 4. Right ventricular chamber dimension is normal. 5. Right ventricular systolic function is reduced. 6. Left atrial chamber dimension is mildly enlarged. 7. Right atrial chamber dimension is mildly enlarged. 8. There is no regurgitation of the mechanical aortic valve. Mean gradient of 6mmHg. Valve is well seated and appears to be functioning appropriately. 9. There is mild mitral valve regurgitation. 10. There is mild tricuspid valve regurgitation. 11. Pulmonary hypertension, estimated pulmonary arterial systolic pressure is 51 mmHg. Consult cardiology for evaluation treatment Appreciate cardiology consultation, Television Operator recommends event monitor on discharge to confirm a diagnosis of atrial fibrillation since target INR would be higher Hypertension: Code(s): I10 - Essential (primary) hypertension Status: Chronic Assessment and Plan: Blood pressure borderline Hold amlodipine and beta-umair upon arrival Blood pressure bumped up, resume beta-umair 25 mg b.i.d. p.o. Time Spent with Patient Time attestation: Total time spent providing and/or coordinating discharge services: Exam Narrative: GENERAL: Pleasant, in no acute distress. Well-nourished. - EYES: EOMI. Anicteric. - HENT: Moist mucous membranes. - LUNGS: Coarse breath sound bilateral base no wheezing, rhonchi, or rales. - CARDIOVASCULAR: Regular rate and rhyth m. No murmur. No JVD. - ABDOMEN: Soft, non-tender and non-dist ended. No palpable masses. - EXTREMITIES: No edema. Peripheral puls es 2+. Non-tender. - NEUROLOGIC: No focal neurological defi cits. CN II-XII grossly intact. General weakness - PSYCHIATRIC: Awake, Alert and oriented x 3. Appropriate mood and affect. - SKIN: No rashes or lesions. Warm. - LYMPH: No cervical lymphadenopathy. DS: Data Data Completed and Pending Labs on day of discharge: Labs from last 24 hours 09/10/24 09/10/24 09/10/24 11:52 09:57 09:44 WBC 5.6 RBC 3.37 L Hgb 10.4 L Hct 32.1 L MCV 95.3 MCH 30.9 MCHC 32.4 RDW 15.3 H Plt Count 170 MPV 9.4 PT 27.3 H INR 2.5 Sodium 134 L Potassium 3.7 Chloride 93 L Carbon Dioxide 32 H Anion Gap 9 BUN 63 H Creatinine 8.84 H Estim Creat Clear Calc 12 Estimated GFR 6 L Glucose 102 POC Capillary Glucose 102 108 H Calcium 8.8 09/10/24 09/10/24 09/10/24 08:48 08:09 05:58 WBC RBC Hgb Hct MCV MCH MCHC RDW Plt Count MPV PT INR Sodium Potassium Chloride Carbon Dioxide Anion Gap BUN Creatinine Estim Creat Clear Calc Estimated GFR Glucose POC Capillary Glucose 64 L 69 107 H Calcium 09/09/24 09/09/24 20:31 17:00 WBC RBC Hgb Hct MCV MCH MCHC RDW Plt Count MPV PT INR Sodium Potassium Chloride Carbon Dioxide Anion Gap BUN Creatinine Estim Creat Clear Calc Estimated GFR Glucose POC Capillary Glucose 251 H 92 Calcium Discharge Plan Discharge Attending physician on discharge: Karen Horowitz Consulting providers: Leandro Reyes Adarsh; Lalit Machuca Discharging Clinician: Karen Horowitz Patient Disposition: Home, Self-Care Activity: as tolerated Diet: as tolerated, heart healthy and diabetic Patient Instructions: Antibiotic Form, Warfarin (By mouth), Heart Failure (GEN), Diabetic Ketoacidosis (GEN) Patient Language: Taiwanese Stand Alone Forms: General Discharge Information Follow-up/Referrals: Lalit Machuca MD [Physician] - (See Cardiology at scheduled appointment) Matthew,MD Aditya [Primary Care Provider] - (See PCP in 1 week) Discharge Medications: New insulin aspart U-100 [Novolog U-100 Insulin aspart] 100 unit/mL Solution 4 - 8 unit subcut TIDWM Qty: 10 0RF Protocol: Insulin Corrective High-Dose Condition: glucose < 70 mg/dl Dose/Route: Follow hypoglycemia order Condition: glucose 70-200 mg/dl Dose/Route: No additional insulin Condition: glucose 201-250 mg/dl Dose/Route: 4 units sub-Q Condition: glucose 251-300 mg/dl Dose/Route: 5 units sub-Q Condition: glucose 301-350 mg/dl Dose/Route: 6 units sub-Q Condition: glucose 351-400 mg/dl Dose/Route: 8 units sub-Q Condition: glucose > 400 mg/dl Dose/Route: Call Protocol Text: *No Correction Dose at Bedtime* Rx Instructions: glucose < 70 mg/dl Follow hypoglycemia order glucose 70-200 mg/dl No additional insulin glucose 201-250 mg/dl 4 units sub-Q glucose 251-300 mg/dl 5 units sub-Q glucose 301-350 mg/dl 6 units sub-Q glucose 351-400 mg/dl 8 units sub-Q glucose > 400 mg/dl Call insulin aspart U-100 [Novolog U-100 Insulin aspart] 100 unit/mL Solution 2 - 4 unit subcut HS Qty: 10 0RF Protocol: Insulin Corrective High-Dose Condition: glucose < 70 mg/dl Dose/Route: Follow hypoglycemia order Condition: glucose 70-200 mg/dl Dose/Route: No additional insulin Condition: glucose 201-250 mg/dl Dose/Route: 2 units sub-Q Condition: glucose 251-300 mg/dl Dose/Route: 2 units sub-Q Condition: glucose 301-350 mg/dl Dose/Route: 3 units sub-Q Condition: glucose 351-400 mg/dl Dose/Route: 4 units sub-Q Condition: glucose > 400 mg/dl Dose/Route: Call Rx Instructions: Instruction glucose < 70 mg/dl Follow hypoglycemia order glucose 70-200 mg/dl No additional insulin glucose 201-250 mg/dl 2 units sub-Q glucose 251-300 mg/dl 2 units sub-Q glucose 301-350 mg/dl 3 units sub-Q glucose 351-400 mg/dl 4 units sub-Q glucose > 400 mg/dl Call insulin glargine [Lantus U-100 Insulin] 100 unit/mL Solution 35 unit subcut Q12HR Qty: 10 2RF insulin aspart U-100 [Novolog U-100 Insulin aspart] 100 unit/mL Solution 7 unit subcut TIDWM Qty: 10 0RF metoprolol tartrate 50 mg Tablet 75 mg PO Q12HR Qty: 90 1RF warfarin 5 mg tablet 5 mg PO DAILY Qty: 30 0RF Continued calcitriol 0.25 mcg Capsule 0.25 mcg PO QAM ergocalciferol (vitamin D2) [Vitamin D2] 50,000 unit Capsule 50,000 unit PO WEEKLY Rx Instructions: on mondays at 0900 nitroglycerin 0.4 mg Tablet, Sublingual 0.4 mg SUBLINGUAL Q5-15M PRN (Reason: Chest Pain) Patient Comments: pt states he needs his prescription renewed (DME) Omnipod 5 G6 Pods (Gen 5) Cartridge SUBCUT Qty: 45 2RF Rx Instructions: Change every 48 hours levothyroxine 25 mcg tablet 25 mcg PO DAILY Qty: 90 1RF ezetimibe [Zetia] 10 mg Tablet 10 mg PO DAILY cetirizine [All Day Allergy (cetirizine)] 10 mg Tablet 10 mg PO DAILY atorvastatin 80 mg tablet 80 mg PO DAILY albuterol sulfate [ProAir HFA] 90 mcg/actuation HFA aerosol inhaler 1 inh inhalation QID PRN (Reason: shortness of breath or wheezing) Qty: 8.5 0RF gemfibrozil 600 mg tablet 600 mg PO Q12H febuxostat 40 mg tablet 40 mg PO QPM Linzess 72 mcg capsule 72 mcg PO DAILY PRN (Reason: Diarrhea) omeprazole 20 mg capsule,delayed release(DR/EC) 20 mg PO DAILY aspirin 81 mg capsule 81 mg PO DAILY colchicine 0.6 mg capsule 0.6 mg PO 3XW Rx Instructions: monday, monday, fridays cyclosporine 0.05 % dropperette 1 drp EACH EYE Q12H gentamicin 0.1 % cream 1 applic topical HS valacyclovir 500 mg tablet 500 mg PO Q12H tamsulosin 0.4 mg capsule 0.4 mg PO BID potassium chloride 20 mEq tablet extended release 20 meq PO DAILY torsemide 100 mg tablet 100 mg PO DAILY icosapent ethyl [Vascepa] 1 gram capsule 1 g PO QID amlodipine 10 mg tablet 10 mg PO HS Gvoke HypoPen 2-Pack 1 mg/0.2 mL auto-injector See Rx Instructions .ROUTE .COMPLEX PRN (Reason: Hypoglycemia) Rx Instructions: INJECT 1 MG(0.2 ML) UNDER THE SKIN ONCE A SINGLE DOSE, MAY REPEAT ONCE AFTER 15 MINUTES IF NO RESPONSE calcium acetate(phosphat bind) 667 mg capsule 667 mg PO QID erythromycin 5 mg/gram (0.5 %) ointment 1 applic EACH EYE HS cyclobenzaprine 10 mg tablet 5 - 10 mg PO TID PRN (Reason: muscle spasm) Qty: 10 0RF famotidine 40 mg tablet 40 mg PO HS lidocaine 5 % adhesive patch,medicated 1 patch transdermal Q24H Patient Comments: Back (DME) pen needle, diabetic [BD Lucrecia 2nd Gen Pen Needle] 32 gauge x 5/32 needle See Rx Instructions .ROUTE .COMPLEX Qty: 100 0RF Dose Instruction: TO ADMINISTER INSULIN DIRECTED Rx Instructions: TO ADMINISTER INSULIN DIRECTED Discontinued warfarin 3 mg tablet 3 mg PO DAILY Qty: 30 0RF Rx Instructions: everyday EXCEPT MONDAY insulin aspart U-100 [Novolog FlexPen U-100 Insulin] 100 unit/mL (3 mL) insulin pen 5 unit subcut TIDWMEAL Qty: 15 0RF Patient Comments: use if insulin pump is not working metoprolol succinate 25 mg tablet extended release 24 hr 50 mg PO DAILY Date of admission: 08/31/24 15:15 Primary Care Provider: Matthew,[facility] Admitting Provider: Santosh Lockwood Attending physician on admission: Santosh Lockwodo Condition: Stable
--- NOTE | 2024-09-10 15:09 | PM.PNCARD ---
Progress Note: A&P Assessment and Plan (1) H/O mechanical aortic valve replacement: Code(s): Z95.2 - Presence of prosthetic heart valve Status: Acute Plan History of mechanical aortic valve replacement on X valve Paroxysmal atrial fibrillation End-stage renal disease on hemodialysis DKA on presentation Hypertension Hypothyroidism Mixed dyslipidemia Plan Warfarin with target INR 2-3 since the patient had possible atrial fibrillation increase metoprolol dose to 75 mg b.i.d. Continue statin OK for discharge today from a cardiac perspective Subjective Date/time seen: 09/10/24 15:09 Interval history: Cardiology follow up visit 09/10/2024: Feels well today. No chest pain, shortness of breath, palpitations. He does have some swelling in his feet but this has improved. Review of Systems Review of Systems: All systems reviewed & are unremarkable except as noted in HPI and below Cardiovascular: Cardiovascular: Reports as per HPI Respiratory: Respiratory: Reports as per HPI Exam Const: General: comfortable HENMT: Mouth: Yes moist mucous membranes Eyes: EOM: EOMs intact bilaterally Neck: Neck: no JVD Resp: Auscultation: clear to auscultation bilaterally Cardio: Rate: tachycardic (mild) Rhythm: regular rhythm and abnormal rhythm irregularly irregular Other: click of mechanical valve auscultated Extrem: General: pedal edema Objective Data Vital Signs Vital Signs: Vital Signs - 24 hr 09/09/24 16:00 09/09/24 20:00 09/09/24 20:25 Temperature Pulse Rate 105 H 114 H 110 H Respiratory Rate Blood Pressure Pulse Oximetry Oxygen Delivery 09/09/24 20:36 09/09/24 23:27 09/10/24 00:00 Temperature 36.9 C 36.4 C Pulse Rate 115 H 109 H 102 H Respiratory Rate 18 16 Blood Pressure 132/87 135/77 Pulse Oximetry 96 93 Oxygen Delivery 09/10/24 04:00 09/10/24 05:59 09/10/24 08:00 Temperature 36.9 C Pulse Rate 109 H 110 H 114 H Respiratory Rate 16 Blood Pressure 105/74 Pulse Oximetry 97 Oxygen Delivery 09/10/24 08:45 09/10/24 08:47 09/10/24 12:00 Temperature Pulse Rate 115 H 97 Respiratory Rate Blood Pressure Pulse Oximetry Oxygen Delivery Room Air 09/10/24 13:26 Temperature 36.9 C Pulse Rate 108 H Respiratory Rate 18 Blood Pressure 110/58 L Pulse Oximetry 96 Oxygen Delivery Intake/Output Intake/Output: Intake & Output 09/07/24 09/08/24 09/09/24 09/10/24 23:59 23:59 23:59 23:59 Intake Total 1100 1200 900 800 Output Total 1584 1008 1305 Balance -484 1200 108 505 Meds/Results Medications: Active Medications Generic Name Dose Route Start Last Admin Trade Name Freq PRN Reason Stop Dose Admin Acetaminophen 650 mg 08/31/24 19:35 09/06/24 12:09 Acetaminophen 325 Mg Tablet PO 650 mg Q4H PRN Administration Mild Pain (1-3) or Fever Albuterol 2.5 mg 08/31/24 13:59 Albuterol Sulfate Neb 2.5 Mg/3 Ml Inh INHALATION Q4HRT PRN Shortness Of Breath Or Wheezing Albuterol 1 puff 08/31/24 22:48 Albuterol Sulfate (*Sp) Aerosol 1 Puff INHALATION Q6HRT PRN shortness of breath or wheezing Aspirin 81 mg 09/01/24 09:00 09/10/24 08:47 Aspirin 81 Mg Chewable Tablet PO 81 mg DAILY ASHLEY Administration Atorvastatin Calcium 80 mg 09/01/24 09:00 09/10/24 08:47 Atorvastatin 40 Mg Tablet PO 80 mg DAILY ASHLEY Administration Benzocaine 1 lozenge 09/06/24 06:29 Benzocaine/Menthol (*Bkc) 18 Ea Lozenge PO PRN PRN Sore Throat Calcitriol 0.25 mcg 09/01/24 09:00 09/10/24 08:47 Calcitriol 0.25 Mcg Capsule PO 0.25 mcg QAM ASHLEY Administration Calcium Acetate 667 mg 08/31/24 21:00 09/10/24 12:35 Calcium Acetate 667 Mg Tablet PO 667 mg QID ASHLEY Administration Cyclobenzaprine HCl 10 mg 08/31/24 23:58 09/01/24 00:03 Cyclobenzaprine Hcl 10 Mg Tablet PO 10 mg Q8H PRN Administration muscle spasm Cyclosporine 1 drop 08/31/24 22:50 09/10/24 08:47 Cyclosporine 0.4 Ml Ophth Solution EACH EYE 1 drop Q12HR ASHLEY Administration Dextrose 12.5 gm 09/01/24 10:48 Dextrose 50% 25 Gm/50 Ml Syringe IV PUSH PRN PRN Hypoglycemia Protocol Ezetimibe 10 mg 09/01/24 09:00 09/10/24 08:47 Ezetimibe 10 Mg Tablet PO 10 mg DAILY ASHLEY Administration Erythromycin 1 applic 08/31/24 23:05 09/09/24 20:24 Erythromycin Ophth Ointment 1 Gm Tube EACH EYE 1 applic HS ASHLEY Administration Gentamicin Sulfate 1 applic 09/01/24 17:00 09/10/24 08:48 Gentamicin Sulfate 0.1% Oint 15 Gm Tube TOPICAL 1 applic DAILY ASHLEY Administration Glucagon 1 mg 09/01/24 10:48 Glucagon For Inj 1 Mg Vial IM PRN PRN Hypoglycemia Protocol Glucose 15 gm 09/01/24 10:48 Glucose Oral Gel 15 Gm Of Glucse In 37.5 Gm Tube PO PRN PRN Hypoglycemia Protocol Hydromorphone HCl 0.5 mg 08/31/24 19:39 09/08/24 02:53 Hydromorphone Hcl Inj (*Crx) 1 Mg/Ml Syr IV PUSH 0.5 mg Q3H PRN Administration Pain Rated 7-10 Dextrose 1,000 mls @ 100 mls/hr 09/01/24 10:48 Dextrose 5% 1,000 Ml IVPB PRN PRN Hypoglycemia Protocol Insulin Aspart 4 - 8 units 09/01/24 12:00 09/10/24 12:33 Insulin Aspart (*Bkc) 100 Units/Ml SUB-Q Not Given TIDWM [facility] Protocol Insulin Aspart 2 - 4 units 09/01/24 21:00 09/09/24 20:33 Insulin Aspart (*Bkc) 100 Units/Ml SUB-Q 2 units HS ASHLEY Administration Protocol Insulin Aspart 7 units 09/04/24 12:00 09/10/24 12:35 Insulin Aspart (*Bkc) 100 Units/Ml SUB-Q Not Given TIDWM ASHLEY Insulin Glargine 35 units 09/04/24 08:49 09/10/24 08:45 Insulin Glargine (*Bkc) 100 Units/Ml SUB-Q Not Given Q12HR ASHLEY Levothyroxine Sodium 25 mcg 09/01/24 06:30 09/10/24 06:00 Levothyroxine Sodium 25 Mcg Tablet PO 25 mcg DAILY@0630 ASHLEY Administration Metoclopramide HCl 10 mg 09/05/24 17:31 09/05/24 17:49 Metoclopramide Hcl Inj 10 Mg/2 Ml Vial IV PUSH 10 mg Q6HR PRN Administration nausea Metoprolol Tartrate 50 mg 09/08/24 21:00 09/10/24 08:47 Metoprolol Tartrate 50 Mg Tab PO 50 mg Q12HR ASHLEY Administration Nitroglycerin 0.4 mg 08/31/24 22:48 Nitroglycerin Sl 0.4 Mg Tablet SUBLINGUAL Q5MIN PRN Chest Pain Oxycodone HCl 5 mg 08/31/24 19:39 09/10/24 06:01 Oxycodone Hcl (*Crx) 5 Mg Tab Ir PO 5 mg Q4H PRN Administration Pain Rated 7-10 Pantoprazole Sodium 40 mg 09/01/24 09:00 09/10/24 08:47 Pantoprazole 40 Mg Tablet PO 40 mg QAM ASHLEY Administration Tamsulosin HCl 0.4 mg 08/31/24 19:45 09/10/24 08:47 Tamsulosin Hcl 0.4 Mg Capsule PO 0.4 mg BID ASHLEY Administration Valacyclovir HCl 500 mg 09/05/24 09:00 09/10/24 08:47 Valacyclovir Hcl 500 Mg Tablet PO 500 mg DAILY ASHLEY Administration Warfarin Sodium 5 mg 09/09/24 17:00 09/09/24 17:09 Warfarin (*Pbkc) 5 Mg Tablet PO 5 mg DAILY@1700 ASHLEY Administration Radiology Results: ITS Impressions Abdomen Ultrasound 09/01/24 09:21 IMPRESSION: Cholelithiasis Chest X-Ray 09/08/24 17:48 IMPRESSION: Mild interstitial edema. Subsegmental left basilar atelectasis/consolidation. Small left pleural effusion. Labs Labs: Laboratory Results - last 24 hr 09/09/24 09/09/24 09/10/24 17:00 20:31 05:58 WBC RBC Hgb Hct MCV MCH MCHC RDW Plt Count MPV PT INR Sodium Potassium Chloride Carbon Dioxide Anion Gap BUN Creatinine Estim Creat Clear Calc Estimated GFR Glucose POC Capillary Glucose 92 251 H 107 H Calcium 09/10/24 09/10/24 09/10/24 08:09 08:48 09:44 WBC RBC Hgb Hct MCV MCH MCHC RDW Plt Count MPV PT INR Sodium Potassium Chloride Carbon Dioxide Anion Gap BUN Creatinine Estim Creat Clear Calc Estimated GFR Glucose POC Capillary Glucose 69 64 L 108 H Calcium 09/10/24 09/10/24 09:57 11:52 WBC 5.6 RBC 3.37 L Hgb 10.4 L Hct 32.1 L MCV 95.3 MCH 30.9 MCHC 32.4 RDW 15.3 H Plt Count 170 MPV 9.4 PT 27.3 H INR 2.5 Sodium 134 L Potassium 3.7 Chloride 93 L Carbon Dioxide 32 H Anion Gap 9 BUN 63 H Creatinine 8.84 H Estim Creat Clear Calc 12 Estimated GFR 6 L Glucose 102 POC Capillary Glucose 102 Calcium 8.8 Quality VTE Prophylaxis VTE prophylaxis: pharmacologic ordered
--- NOTE | 2024-09-10 16:20 | PM.PNNEP ---
Progress Note: A&P Assessment and Plan (1) End-stage renal disease (ESRD): Code(s): N18.6 - End stage renal disease Status: Acute Assessment and Plan: ESRD: Peritoneal dialysis. His peritoneal dialysate effluent is clear, however will make sure he does not have infection in light of the pain in the right upper quadrant. Peritoneal dialysis was supervised. He does have gallstones and this may well be responsible too. Type 1 diabetes mellitus with hyperglycemia, DKA presentation: Insulin, discussed with patient going needs to get on regular insulin in stable from the pump Hyponatremia in the presence of ESRD: Fluid removed Possible pneumonia with chest x-ray showing infiltrate: Ceftriaxone and azithromycin History of sleep apnea on CPAP, maintain CPAP Anemia of chronic kidney disease: On long acting erythrocyte stimulating agent as needed, usually his hemoglobin sticks around 12 grams/deciliter Secondary hyperparathyroidism: On calcitriol therapy History of coronary artery disease. Diabetes mellitus: Control per ICU team Peritoneal dialysis: -prescriptions altered to his regular schedule -Icodextrin not available in the hospital in the [place] use Dianeal 2.5% -Peritoneal dialysis supervised -look at cultures 09/02: --ESRD: UF is 433 mls,is NOT infected intra peritoneally --maintain same, is not able to use icodextrin in hospital --needs to change to BID insulin to prevent these events --PD orders maintained 09/03: --doing better with ultrafiltration and fluid situation better maintain same dialysis orders --maintain sugar control with insulin --hyponatremia secondary to fluid retention as well as high blood sugars --peritoneal dialysis orders to maintain and supervised dialysis 09/04/2024: --maintain same Dianeal concentration --Fluid state slowly better --sugars up and down --Supervise PD 09/05: --awaiting echo --fluid retention is stable --maintain PD, same Dianeal 2.5% --supervise PD 09/06 --echocardiogram shows ejection fraction of only 25% --further cardiology workup is 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 09/10/24: --for discharge --use Extraneal to help UF once home --f/u outpatient Subjective Date/time seen: 09/10/24 16:20 Interval history: Doing OK PERITONEAL DIALYSIS UF 1305 MLS PD orders, same, to continue PD supervised Exam Narrative: VSS his report WD WN, still looks a bit swollen up relative to what his outpatient, JVD is hard to see, irregular rhythm rate, tachycardia, no respiratory distress, soft, non tender abdomen, PD catheter in place, edematous legs and feet, seems better, alert, oriented x 3 no tremors, cognition intact. Objective Data Vital Signs Vital Signs: Vital Signs - 24 hr 09/09/24 20:00 09/09/24 20:25 09/09/24 20:36 Temperature 36.9 C Pulse Rate 114 H 110 H 115 H Respiratory Rate 18 Blood Pressure 132/87 Pulse Oximetry 96 Oxygen Delivery 09/09/24 23:27 09/10/24 00:00 09/10/24 04:00 Temperature 36.4 C Pulse Rate 109 H 102 H 109 H Respiratory Rate 16 Blood Pressure 135/77 Pulse Oximetry 93 Oxygen Delivery 09/10/24 05:59 09/10/24 08:00 09/10/24 08:45 Temperature 36.9 C Pulse Rate 110 H 114 H Respiratory Rate 16 Blood Pressure 105/74 Pulse Oximetry 97 Oxygen Delivery Room Air 09/10/24 08:47 09/10/24 12:00 09/10/24 13:26 Temperature 36.9 C Pulse Rate 115 H 97 108 H Respiratory Rate 18 Blood Pressure 110/58 L Pulse Oximetry 96 Oxygen Delivery 09/10/24 16:00 Temperature Pulse Rate 112 H Respiratory Rate Blood Pressure Pulse Oximetry Oxygen Delivery Intake/Output Intake/Output: Intake & Output 09/07/24 09/08/24 09/09/24 09/10/24 23:59 23:59 23:59 23:59 Intake Total 1100 1200 900 800 Output Total 1584 1008 1305 Balance -484 1200 108 -506 Meds/Results Medications: Active Medications Generic Name Dose Route Start Last Admin Trade Name Freq PRN Reason Stop Dose Admin Acetaminophen 650 mg 08/31/24 19:35 09/06/24 12:09 Acetaminophen 325 Mg Tablet PO 650 mg Q4H PRN Administration Mild Pain (1-3) or Fever Albuterol 2.5 mg 08/31/24 13:59 Albuterol Sulfate Neb 2.5 Mg/3 Ml Inh INHALATION Q4HRT PRN Shortness Of Breath Or Wheezing Albuterol 1 puff 08/31/24 22:48 Albuterol Sulfate (*Sp) Aerosol 1 Puff INHALATION Q6HRT PRN shortness of breath or wheezing Aspirin 81 mg 09/01/24 09:00 09/10/24 08:47 Aspirin 81 Mg Chewable Tablet PO 81 mg DAILY ASHLEY Administration Atorvastatin Calcium 80 mg 09/01/24 09:00 09/10/24 08:47 Atorvastatin 40 Mg Tablet PO 80 mg DAILY ASHLEY Administration Benzocaine 1 lozenge 09/06/24 06:29 Benzocaine/Menthol (*Bkc) 18 Ea Lozenge PO PRN PRN Sore Throat Calcitriol 0.25 mcg 09/01/24 09:00 09/10/24 08:47 Calcitriol 0.25 Mcg Capsule PO 0.25 mcg QAM ASHLEY Administration Calcium Acetate 667 mg 08/31/24 21:00 09/10/24 12:35 Calcium Acetate 667 Mg Tablet PO 667 mg QID ASHLEY Administration Cyclobenzaprine HCl 10 mg 08/31/24 23:58 09/01/24 00:03 Cyclobenzaprine Hcl 10 Mg Tablet PO 10 mg Q8H PRN Administration muscle spasm Cyclosporine 1 drop 08/31/24 22:50 09/10/24 08:47 Cyclosporine 0.4 Ml Ophth Solution EACH EYE 1 drop Q12HR ASHLEY Administration Dextrose 12.5 gm 09/01/24 10:48 Dextrose 50% 25 Gm/50 Ml Syringe IV PUSH PRN PRN Hypoglycemia Protocol Ezetimibe 10 mg 09/01/24 09:00 09/10/24 08:47 Ezetimibe 10 Mg Tablet PO 10 mg DAILY ASHLEY Administration Erythromycin 1 applic 08/31/24 23:05 09/09/24 20:24 Erythromycin Ophth Ointment 1 Gm Tube EACH EYE 1 applic HS ASHLEY Administration Gentamicin Sulfate 1 applic 09/01/24 17:00 09/10/24 08:48 Gentamicin Sulfate 0.1% Oint 15 Gm Tube TOPICAL 1 applic DAILY ASHLEY Administration Glucagon 1 mg 09/01/24 10:48 Glucagon For Inj 1 Mg Vial IM PRN PRN Hypoglycemia Protocol Glucose 15 gm 09/01/24 10:48 Glucose Oral Gel 15 Gm Of Glucse In 37.5 Gm Tube PO PRN PRN Hypoglycemia Protocol Hydromorphone HCl 0.5 mg 08/31/24 19:39 09/08/24 02:53 Hydromorphone Hcl Inj (*Crx) 1 Mg/Ml Syr IV PUSH 0.5 mg Q3H PRN Administration Pain Rated 7-10 Dextrose 1,000 mls @ 100 mls/hr 09/01/24 10:48 Dextrose 5% 1,000 Ml IVPB PRN PRN Hypoglycemia Protocol Insulin Aspart 4 - 8 units 09/01/24 12:00 09/10/24 12:33 Insulin Aspart (*Bkc) 100 Units/Ml SUB-Q Not Given TIDWM [facility] Protocol Insulin Aspart 2 - 4 units 09/01/24 21:00 09/09/24 20:33 Insulin Aspart (*Bkc) 100 Units/Ml SUB-Q 2 units HS ASHLEY Administration Protocol Insulin Aspart 7 units 09/04/24 12:00 09/10/24 12:35 Insulin Aspart (*Bkc) 100 Units/Ml SUB-Q Not Given TIDWM [facility] Insulin Glargine 35 units 09/04/24 08:49 09/10/24 08:45 Insulin Glargine (*Bkc) 100 Units/Ml SUB-Q Not Given Q12HR [facility] Levothyroxine Sodium 25 mcg 09/01/24 06:30 09/10/24 06:00 Levothyroxine Sodium 25 Mcg Tablet PO 25 mcg DAILY@0630 ASHLEY Administration Metoclopramide HCl 10 mg 09/05/24 17:31 09/05/24 17:49 Metoclopramide Hcl Inj 10 Mg/2 Ml Vial IV PUSH 10 mg Q6HR PRN Administration nausea Metoprolol Tartrate 50 mg 09/08/24 21:00 09/10/24 08:47 Metoprolol Tartrate 50 Mg Tab PO 50 mg Q12HR ASHLEY Administration Nitroglycerin 0.4 mg 08/31/24 22:48 Nitroglycerin Sl 0.4 Mg Tablet SUBLINGUAL Q5MIN PRN Chest Pain Oxycodone HCl 5 mg 08/31/24 19:39 09/10/24 06:01 Oxycodone Hcl (*Crx) 5 Mg Tab Ir PO 5 mg Q4H PRN Administration Pain Rated 7-10 Pantoprazole Sodium 40 mg 09/01/24 09:00 09/10/24 08:47 Pantoprazole 40 Mg Tablet PO 40 mg QAM ASHLEY Administration Tamsulosin HCl 0.4 mg 08/31/24 19:45 09/10/24 08:47 Tamsulosin Hcl 0.4 Mg Capsule PO 0.4 mg BID ASHLEY Administration Valacyclovir HCl 500 mg 09/05/24 09:00 09/10/24 08:47 Valacyclovir Hcl 500 Mg Tablet PO 500 mg DAILY ASHLEY Administration Warfarin Sodium 5 mg 09/09/24 17:00 09/09/24 17:09 Warfarin (*Pbkc) 5 Mg Tablet PO 5 mg DAILY@1700 ASHLEY Administration Radiology Results: ITS Impressions Abdomen Ultrasound 09/01/24 09:21 IMPRESSION: Cholelithiasis Chest X-Ray 09/08/24 17:48 IMPRESSION: Mild interstitial edema. Subsegmental left basilar atelectasis/consolidation. Small left pleural effusion. Labs Labs: Laboratory Results - last 24 hr 09/09/24 09/09/24 09/10/24 17:00 20:31 05:58 WBC RBC Hgb Hct MCV MCH MCHC RDW Plt Count MPV PT INR Sodium Potassium Chloride Carbon Dioxide Anion Gap BUN Creatinine Estim Creat Clear Calc Estimated GFR Glucose POC Capillary Glucose 92 251 H 107 H Calcium 09/10/24 09/10/24 09/10/24 08:09 08:48 09:44 WBC RBC Hgb Hct MCV MCH MCHC RDW Plt Count MPV PT INR Sodium Potassium Chloride Carbon Dioxide Anion Gap BUN Creatinine Estim Creat Clear Calc Estimated GFR Glucose POC Capillary Glucose 69 64 L 108 H Calcium 09/10/24 09/10/24 09:57 11:52 WBC 5.6 RBC 3.37 L Hgb 10.4 L Hct 32.1 L MCV 95.3 MCH 30.9 MCHC 32.4 RDW 15.3 H Plt Count 170 MPV 9.4 PT 27.3 H INR 2.5 Sodium 134 L Potassium 3.7 Chloride 93 L Carbon Dioxide 32 H Anion Gap 9 BUN 63 H Creatinine 8.84 H Estim Creat Clear Calc 12 Estimated GFR 6 L Glucose 102 POC Capillary Glucose 102 Calcium 8.8
== END 2024-09-10 17:08 | disposition home or self-care (01) | DRG 871 ==
LOC: ANHED 12:35 → ANHICU 13:57 → ANH2MED 09-04 18:15
PROVIDERS: Internal Medicine; Internal Medicine Nephrology; Admitting Provider Internal Medicine; Emergency Provider Emergency Medicine; PCP Family Medicine; Visit Provider Hospitalist
DX: A41.9 Sepsis, unspecified organism (principal); E10.10 Type 1 diabetes mellitus with ketoacidosis without coma; N18.6 End stage renal disease; J18.9 Pneumonia, unspecified organism; J96.01 Acute respiratory failure with hypoxia; I50.23 Acute on chronic systolic (congestive) heart failure; E87.1 Hypo-osmolality and hyponatremia; I82.531 Chronic embolism and thrombosis of right popliteal vein; N25.81 Secondary hyperparathyroidism of renal origin; D61.818 Other pancytopenia; I48.0 Paroxysmal atrial fibrillation; I25.10 Atherosclerotic heart disease of native coronary artery without angina pectoris; I50.9 Heart failure, unspecified; D63.1 Anemia in chronic kidney disease; E10.22 Type 1 diabetes mellitus with diabetic chronic kidney disease; E10.319 Type 1 diabetes mellitus with unspecified diabetic retinopathy without macular edema; E87.5 Hyperkalemia; E10.42 Type 1 diabetes mellitus with diabetic polyneuropathy; E78.5 Hyperlipidemia, unspecified; K80.20 Calculus of gallbladder without cholecystitis without obstruction; N25.0 Renal osteodystrophy; K21.9 Gastro-esophageal reflux disease without esophagitis; M19.90 Unspecified osteoarthritis, unspecified site; M10.9 Gout, unspecified; M54.9 Dorsalgia, unspecified; G89.29 Other chronic pain; G47.33 Obstructive sleep apnea (adult) (pediatric); F41.9 Anxiety disorder, unspecified; W00.0XXA Fall on same level due to ice and snow, initial encounter; Z20.822 Contact with and (suspected) exposure to COVID-19; Z96.41 Presence of insulin pump (external) (internal); Z99.2 Dependence on renal dialysis; Z79.01 Long term (current) use of anticoagulants; Z79.82 Long term (current) use of aspirin; Z95.1 Presence of aortocoronary bypass graft; Z95.5 Presence of coronary angioplasty implant and graft; I25.5 Ischemic cardiomyopathy; I35.0 Nonrheumatic aortic (valve) stenosis; Z95.2 Presence of prosthetic heart valve
CPT/HCPCS: 36415; 71045; 76705; 80048; 80053; 82803; 82948; 83605; 83735; 83880; 84145; 84484; 85025; 85027; 85610; 85730; 87040; 87070; 87075; 87205; 87637; 87641; 89051; 90945; 94660; 96365; 96366; 96367; 96375; 97110; 97161; 97165; 97530; 97535; 99285; A9270; C8929; G0378; J0456; J0696; J1171; J1815; J2270; J2371; J2405; J2543; J2765; J3370; J7030; J7060; P9047; Q9957

== ENCOUNTER 2024-10-16 13:43 | Outpatient (CLI) | payer MEDICARE, MEDICAID, SELFPAY ==
--- NOTE | ~2024-10-16 | CT_ITS ---
EXAMINATION: CT thoracic lumbar wo con DATE: 10/16/2024 14:08 INDICATION: Lumbar radiculopathy. TECHNIQUE: Computed tomography (CT) of the thoracic and lumbar spine was performed without intravenou s contrast. Automated exposure control and iterative reconstruction technique were employed. The dose -length product was 2194.49 mGy-cm. COMPARISON: CT chest, abdomen, and pelvis 08/17/2024, chest CT 01/26/2021 FINDINGS: CT THORACIC SPINE: There is a moderate-sized left pleural effusion. Alignment is normal. There is mil d chronic anterior wedging of many vertebral bodies. There is severely decreased disc height at T6-T7 with endplate erosions and sclerosis with 2/5 height loss of T6 and T7. There is mildly decreased di sc height at T5-T6, T7-T8, T8-T9, T9-T10, T10-T11, and T11-T12. There are chronic endplate erosions a t many levels. There is multilevel facet joint osteoarthritis, severe bilaterally at T7-T8. There is mild bilateral neural foraminal stenosis at T6-T7 and T7-T8. There is mild central canal stenosis at the disc levels from T5-T6 through T11-T12. CT LUMBAR SPINE: Partially visualized is ascites. A peritoneal dialysis catheter is noted. There is 4 degrees levocurvature of lumbar spine. There is mild chronic anterior wedging of L1 vertebral body. There are chronic erosions and sclerosis of the inferior endplates of L4 and L5. There is mildly decr eased disc height at L4-L5 and L5-S1. The following disc levels are specifically discussed: L1-L2: The disc is bulging. There is moderate right and mild left facet joint osteoarthritis. There i s mild bilateral neural foraminal stenosis. There is mild central canal stenosis. L2-L3: The disc is bulging. There is moderate right and mild left facet joint osteoarthritis. There i s mild bilateral neural foraminal stenosis. There is mild central canal stenosis. L3-L4: The disc is bulging. There is severe right and moderate left facet joint osteoarthritis. There is mild bilateral neural foraminal stenosis. There is mild central canal stenosis. L4-L5: The disc is bulging. There is severe bilateral facet joint osteoarthritis. There is moderate b ilateral neural foraminal stenosis. There is mild central canal stenosis. L5-S1: The disc is bulging. There is severe bilateral facet joint osteoarthritis. There is moderate b ilateral neural foraminal stenosis. There is mild central canal stenosis. IMPRESSION: 1. Severe thoracic spondylosis and moderate lumbar spondylosis. Chronic endplate erosions at many lev els are consistent with dialysis-related spondyloarthropathy (DRSA). 2. Moderate-sized left pleural effusion. Reviewed, dictated and finalized at location A. SCAPER IMPRESSION: 1. Severe thoracic spondylosis and moderate lumbar spondylosis. Chronic endplat e erosions at many levels are consistent with dialysis-related spondyloarthropa thy (DRSA). 2. Moderate-sized left pleural effusion.
--- OUTSIDE RECORDS SUMMARY | 2024-10-16 15:33 | XMS_ITS | Patient Health Summary ---
Author Organization [facility] Address [address] [facility] [place] [address] Care Team Providers Care Flight Engineer Manager Name Role Phone Aditya Castro Primary Care Provider Unavailab le Note from [facility],non-owned Affiliates and Associated Physician Practices is amultiple site organization consisting of ambulatory clinics and hospital sitesin [place], [place], [place] and [place]. This disclosure is being madepursuant to the Care Everywhere program and may not contain all information available regarding this patient. Last updated 18.[facility] Allergies * Allopurinol(Other) -High Criticality * Contrast-Iodinated [...] as needed * vitamin D, ergocalciferol, (DRISDOL) 06603 units capsule(Started 02/13/2019) Take 50,000 Units by [...] propionate (FLONASE) 50 MCG/ACT nasal spray(Started 04/24/2019) [place] 1 spray into each nostril once daily * epoetin (PROCRIT) 16689 UNIT/ML injection Inject subcutaneously every 14 days [...] Comments Blood Pressure 140/60 07/13/2020 1:30 PM [employer] Pulse 65 07/13/2020 1:30 PM [employer] Temperature 36.1 C (97 F) 07/13/2020 1:30 PM [employer] Respiratory Rate 20 07/13/2020 1:30 PM [employer] Oxygen Saturation 95% 07/13/2020 1:30 PM [employer] Inhaled Oxygen Concentration - - Weight 134.3 kg (296 lb) 07/13/2020 1:30 PM [employer] Height 176.5 cm (5' 9.5 ) 07/13/2020 1:30 PM [employer] Body Mass Index 43.08 07/13/2020 1:30 PM [employer] Procedures * CARDIAC EKG ORDER(Performed 05/18/2020) * [...] Pre-transplant evaluation for kidney transplant * PROTHROMBIN C16096G PANEL(Performed 05/14/2020) Performed for Pre-transplant evaluation for [...] chronicity, unspecified site, [place], unspecifiedtype (HCC) * URIC ACID BLOOD(Performed 04/26/2019) Performed for Gout, unspecified cause, unspecified chronicity, unspecified site, [place], unspecifiedtype ([facility]) * CARDIAC PROCEDURE ORDER(Performed 11/27/2018) [...] complication, with long-term current use of insulin ([facility]) * BASIC METABOLIC PANEL (CALCIUM TOTAL)(Performed 11/23/2018) Performed for 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[place] heart with stable angina pectoris, unspecified vessel or lesion type ([facility]) * GLUCOSE - POINT OF CARE(Performed 11/22/2018) * GLUCOSE - POINT OF CARE(Performed 11/22/2018) * GLUCOSE - POINT OF CARE(Performed 11/22/2018) * GLUCOSE - POINT OF CARE(Performed 11/22/2018) * CARDIAC CATH(Performed 11/22/2018) * GLUCOSE - POINT OF CARE(Performed 11/22/2018) * BASIC METABOLIC PANEL (CALCIUM TOTAL)(Performed 11/22/2018) Performed for 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[place] heart with stable angina pectoris, unspecified vessel or lesion type ([facility]) * CARDIAC CATH CONSULT(Performed 11/22/2018) [...] annulus calcifications. Dictated by Ash Moreira MD (residential program worker). I, Dr. HANNAH SPENCE have personally reviewed and interpreted this examination/study. This report was electronically signed by HANNAH SPENCE on 05/14/2020 5:03 PM . Narrative 05/14/2020 5:03 [...] annulus calcifications. Dictated by Ash Moreira MD (residential program worker). I, Dr. HANNAH SPENCE have personally reviewed [...] Resolution DRB1-1 04 05/29/2020 7:59 AM CDT [facility] ([facility]) DR DQ Low Resolution DRB1-2 11 05/29/2020 7:59 AM CDT [facility] ([facility]) DR DQ Low Resolution DQB1-1 03 (DQ7) 05/29/2020 7:59 AM CDT [facility] ([facility]) DR DQ Low Resolution DQB1-2 03 (DQ8) 05/29/2020 7:59 AM CDT [facility] ([facility]) DR DQ Low Resolution DRB3-1 02 05/29/2020 7:59 AM CDT [facility] ([facility]) DR DQ Low Resolution DRB3-2 Negative 05/29/2020 7:59 AM CDT [facility] ([facility]) DR DQ Low Resolution DRB4-1 01 05/29/2020 7:59 AM CDT [facility] ([facility]) DR DQ Low Resolution DRB4-2 Negative 05/29/2020 7:59 AM CDT [facility] ([facility]) DR DQ Low Resolution DRB5-1 Negative 05/29/2020 7:59 AM CDT [facility] ([facility]) DR DQ Low Resolution DRB5-2 Negative 05/29/2020 7:59 AM CDT [facility] ([facility]) DR DQ Low Resolution Methodology SSOP 05/29/2020 7:59 AM CDT [facility] ([facility]) Comment DR DQ Low Resolution - 05/29/2020 7:59 AM CDT [facility] ([facility]) DR DQ Low Resolution test date 05/28/2020 05/29/2020 7:59 AM CDT [facility] ([facility]) Comment: This test was developed and its performance characteristics determined by the [facility]. It has not been cleared or approved by the U.S. Food and Drug Administration. The FDA has determined that such clearance or approval is not necessary. This test is used for clinical purposes. It should not be regarded as investigational or for research. This laboratory is certified under the Clinical Laboratory Improvement Amendments of 1988 (CLIA-88) as qualified to perform high complexity clinical laboratory testing. CLIA ID# [id number] Performed at: [facility], [address] [facility] [place] [address] [email or web address] Android Developer: Jarrod Chin MD, Blood BLOOD SPECIMEN / Unknown Lab Venipuncture / Unknown 05/14/2020 10:18 AM CDT 05/14/2020 10:52 AM CDT Glenny Martin MD LAB - BLOOD BAN K ORDERABLES [facility] ([facility]) [address] [place] [address], [facility] * HLA TYPING DNA LOW RESOLUTION A,B,C (05/14/2020 10:18 AM CDT) ABC DNA A1 03 05/29/2020 7:59 AM CDT [facility] ([facility]) ABC DNA A2 29 05/29/2020 7:59 AM CDT [facility] ([facility]) ABC DNA B1 07 05/29/2020 7:59 AM CDT [facility] ([facility]) ABC DNA B2 44 05/29/2020 7:59 AM CDT [facility] ([facility]) ABC DNA BW1 6 05/29/2020 7:59 AM CDT [facility] ([facility]) ABC DNA BW2 4 05/29/2020 7:59 AM CDT [facility] ([facility]) ABC DNA C1 07 05/29/2020 7:59 AM CDT [facility] ([facility]) ABC DNA C2 - 05/29/2020 7:59 AM CDT [facility] ([facility]) ABC DNA Methodology SSOP 05/29 7:59 AM CDT [facility] ([facility]) Comment ABC DNA - 0 7:59 AM CDT [facility] ([facility]) ABC DNA Test Date 0 05/29/2020 7:59 AM CDT [facility] ([facility]) Comment: This test was developed and its performance characteristics determined by the [facility]. It has not been cleared or approved by the U.S. Food and Drug Administration. The FDA has determined that such clearance or approval is not necessary. This test is used for clinical purposes. It should not be regarded as investigational or for research. This laboratory is certified under the Clinical Laboratory Improvement Amendments of 1988 (CLIA-88) as qualified to perform high complexity clinical laboratory testing. CLIA ID# [id number] Performed at: [facility], [address] @ [place] [address] [email or web address] Android Developer: Jarrod Chin MD, Blood BLOOD SPECIMEN / Unknown Lab Venipuncture / Unknown 05/14/2020 10:18 AM CDT 05/14/2020 10:52 AM CDT Glenny Martin MD LAB - BLOOD BAN K ORDERABLES Performing Organization Address [facility] de Phone Number [facility] ([facility]) [address] [place] [address], [place] * HLA ANTIBODY SCREEN LUM CLASS 2 ID (05/14/2020 10:18 AM CDT) % PRA 90 05/29/2020 7:59 AM CDT [facility] ([facility]) Class 2 LUM Specificity - 05/29/2020 7:59 AM CDT [facility] ([facility]) Class 2 LUM Test Date 0 05/29/2020 7:59 AM CDT [facility] ([facility]) Comment: This test was developed and its performance characteristics determined by the [facility]. It has not been cleared or approved by the U.S. Food and Drug Administration. The FDA has determined that such clearance or approval is not necessary. This test is used for clinical purposes. It should not be regarded as investigational or for research. This laboratory is certified under the Clinical Laboratory Improvement Amendments of 1988 (CLIA-88) as qualified to perform high complexity clinical laboratory testing. CLIA ID# [id number] Performed at: [facility], [address] @ [place] [address] [email or web address] Android Developer: Jarrod Chin MD, Blood BLOOD SPECIMEN / Unknown Lab Venipuncture / Unknown 05/14/2020 10:18 AM CDT 05/14/2020 10:52 AM CDT Glenny Martin MD LAB - BLOOD BAN K ORDERABLES Performing Organization Address City/[facility]/ZIP Co de Phone Number [facility] ([facility]) [address] [place] [address], [place] * HLA ANTIBODY SCREEN LUM CLASS 1 ID (05/14/2020 10:18 AM CDT) % PRA 4 05/29/2020 7:59 AM CDT [facility] ([facility]) Class 1 LUM Specificity - 05/29/2020 7:59 AM CDT [facility] ([facility]) Class 1 LUM Test Date 0 05/29/2020 7:59 AM CDT [facility] ([facility]) Comment: This test was developed and its performance characteristics determined by the [facility]. It has not been cleared or approved by the U.S. Food and Drug Administration. The FDA has determined that such clearance or approval is not necessary. This test is used for clinical purposes. It should not be regarded as investigational or for research. This laboratory is certified under the Clinical Laboratory Improvement Amendments of 1988 (CLIA-88) as qualified to perform high complexity clinical laboratory testing. CLIA ID# [id number] Performed at: [facility], [address] @ [place] [address] [email or web address] Android Developer: Jarrod Chin MD, Blood BLOOD SPECIMEN / Unknown Lab Venipuncture / Unknown 05/14/2020 10:18 AM CDT 05/14/2020 10:52 AM CDT Glenny Martin MD LAB - BLOOD BAN K ORDERABLES [facility] ([facility]) [address] [place] [address], [facility] * HIV-1 HIV-2 ANTIGEN/ANTIBODY (05/14/2020 10:18 AM CDT) HIV Antigen/Antibod y 1 & 2 Non-reacti ve Non-react bianca 05/14/2020 11:49 AM CDT [facility] Comment:Neither HIV-1 p24 An tigen nor HIV-1/HIV-2 Antibodies are detected. Blood BLOOD SPECIMEN / Unknown Lab Venipuncture / Unknown 05/14/2020 10:18 AM CDT 05/14/2020 10:57 AM CDT Glenny Martin MD LAB - HEMATOLOG Y ORDERABLES [place] [id number] [place] [address] [phone] * CANNABINOID SCREEN BLOOD (05/14/2020 10:18 AM CDT) Marijuana Metabolites Negative 05/17/2020 12:06 AM CDT [facility]) Comment:REFERENCE RANGE: thr shold: 5 ng/mL Specimen Type Comment 05/17/2020 12:06 AM CDT [facility] ([facility]) Comment: WHOLE BLOOD This specimen was screened by immunoassay at the thresholds listed above. Presumptive positive results have not been confirmed by an alternate method; results are intended for clinical medical purposes. Please contact the laboratory if confirmatory testing is desired. This test was developed and its performance characteristics determined by [employer]. It has not been cleared or approved by the Food and Drug Administration. Blood BLOOD SPECIMEN / Unknown Lab Venipuncture / Unknown 05/14/2020 10:18 AM CDT 05/14/2020 10:53 AM CDT Narrative [facility] ([facility]) - 05/17/2020 12:06 AM CDT Performed at: [facility] [employer] [address] [place] [id number] [email or web address] Android Developer: Radha Callahan [facility], Phone: [phone] Glenny Martin MD LAB - CHEMISTRY ORDERABLES Performing Organization Address [facility]/ZIP Co de Phone Number [facility] ([facility]) [address] [place] [address] * COCAINE METABOLITE QUANT (05/14/2020 10:18 AM CDT) Cocaine and Metabolite Blood <20 ng/mL 05/17/2020 11:07 PM CDT [facility] ([facility]) Comment: INTERPRETIVE INFORMATION: Cocaine Metabolite, Serum or Plasma, Quantitative Methodology: Quantitative Gas Chromatography- Mass Spectrometry Positive cutoff: 20 ng/mL For medical purposes only; not valid for forensic use. The concentration value must be greater than or equal to the cutoff to be reported as positive. Interpretive questions should be directed to the laboratory. Test developed and characteristics determined by [facility]. See Compliance Statement B: [email or web address] Performed By: [facility] [address] [place] [address] Hotel Maid: Valerie Mast MD Blood BLOOD SPECIMEN / Unknown Lab Venipuncture / Unknown 05/14/2020 10:18 AM CDT 05/14/2020 10:55 AM CDT Glenny Martin MD LAB - CHEMISTRY ORDERABLES Performing Organization Address City/[facility] Co de Phone Number [facility] ([facility]) [address] [place], [place] [address] * SYPHILIS ANTIBODY CASCADING REFLEX (05/14/2020 10:18 AM CDT) [facility] Treponema pallidum Antibody Non-react bianca Non-react bianca 05/14/2020 11:47 AM CDT [facility] Comment: No Laboratory evidence of syphilis infection. Note: Circulating antibodies may be low or undetectable in early infection. If recent exposure is suspected, re-draw sample in 2-4 weeks and repeat testing. Blood BLOOD SPECIMEN / Unknown Lab Venipuncture / Unknown 05/14/2020 10:18 AM CDT 05/14/2020 10:55 AM CDT Glenny Martin MD LAB - SEROLOGY ORDERABLES Performing Organization Address City/[facility] Co de Phone Number [facility] [address] [address], [facility] [phone] * AMPHETAMINE BLOOD CONFIRMATION (05/14/2020 10:18 AM CDT) Pathologist [facility] Amphetamines Confirmation <20 ng/mL 05/20/2020 12:29 PM CDT [facility] ([facility]) Comment: INTERPRETIVE INFORMATION: Amphetamines, Serum or Plasma, Quantitative Methodology: Quantitative Liquid Chromatography-Tandem Mass Spectrometry Positive cutoff: 20 ng/mL For medical purposes only; not valid for forensic use. The absence of expected drug(s) and/or drug metabolite(s) may indicate non-compliance, inappropriate timing of specimen collection relative to drug administration, poor drug absorption, or limitations of testing. The concentration value must be greater than or equal to the cutoff to be reported as positive. Interpretive questions should be directed to the laboratory. Test developed and characteristics determined by [employer]. See Compliance Statement B: [email or web address] Methamphetamine Confirmation <20 ng/mL 05/20/2020 12:29 PM CDT [facility] ([facility]) MDA Confirmation <20 ng/mL 05/20/20 20 12:29 PM CDT [facility] ([facility]) MDMA Confirm <20 ng/mL 05/20/2020 12:29 PM CDT [facility] ([facility]) MDEA Confirmation <20 ng/mL 020 12:29 PM CDT [facility] ([facility]) Comment: Performed By: [facility] [address] [place] [address] Hotel Maid: Valerie Mast MD Blood BLOOD SPECIMEN / Unknown Lab Venipuncture / Unknown 05/14/2020 10:18 AM CDT 05/14/2020 10:57 AM CDT Glenny Martin MD LAB - CHEMISTRY ORDERABLES [facility] ([facility]) [address] * (ABNORMAL) PTH INTACT ([facility]) (05/14/2020 10:18 AM CDT) [facility] PTH Intact 653.3(H) 8.0 - 77.0 pg/mL 05/14/2020 11:34 AM CDT [facility] Blood BLOOD SPECIMEN / Unknown Lab Venipuncture / Unknown 05/14/2020 10:18 AM CDT 05/14/2020 10:55 AM CDT Glenny Martin MD LAB - CHEMISTRY ORDERABLES [address] [address], [facility] [phone] * OPIATES BLOOD (05/14/2020 10:18 AM CDT) [facility] Opiates Screen Negative 05/17/2020 12:06 AM CDT [facility] ([facility]) Comment:REFERENCE RANGE: thr shold: 10 ng/mL Oxycodone Screen Negative 05/17/20 12:06 AM CDT [facility] ([facility]) Comment:REFERENCE RANGE: thr shold: 10 ng/mL Specimen Type Comment 05/17/2020 12:06 AM CDT [facility]) Comment: WHOLE BLOOD This specimen was [...] AM CDT 05/14/2020 10:53 AM CDT Narrative [facility] ([facility]) - 05/17/2020 12:06 AM CDT Performed at: [facility] [employer] [address] [id number] [email or web address] Android Developer: Radha Callahan [facility], Phone: [phone] Glenny Martin MD LAB - CHEMISTRY ORDERABLES Performing Organization Address [facility] Co de Phone Number [facility] ([facility]) [address] [place] [address] * (ABNORMAL) URIC ACID BLOOD (05/14/2020 10:18 AM CDT) Only the most recent of2 resultswithin the time period is included. Uric Acid 8.4(H) 2.6 - 7.2 mg/dL 05/14/2020 11:41 AM CDT [facility] Blood BLOOD SPECIMEN / Unknown Lab Venipuncture / Unknown 05/14/2020 10:18 AM CDT 05/14/2020 10:55 AM CDT Glenny Martin MD LAB - CHEMISTRY ORDERABLES Performing Organization Address City/[facility]/ZIP Co de Phone Number [address] [address], [facility] [phone] * PROTHROMBIN [id number] PANEL (05/14/2020 10:18 AM CDT) [facility] Signature Prothrombin [id number] Negative 05/21/2020 8:19 PM CDT [facility] ([facility]) Comment: Indication for testing: Assess genetic risk for thrombosis. NEGATIVE: The Factor II, prothrombin U65926V mutation, was not detected. Other causes of elevated prothrombin levels and hereditary forms of venous thrombosis have not been excluded. Recommendations: If clinically indicated, testing for other inherited or [...] Cui, Ph.D. 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 PATHOGENIC VARIANT TESTED: F2 c.*97G>A (G57501P). CLINICAL SENSITIVITY FOR VENOUS THROMBOSIS: Approximately 10 percent. METHODOLOGY: Polymerase chain reaction and fluorescence monitoring. ANALYTICAL SENSITIVITY AND SPECIFICITY: 99 percent. LIMITATIONS: Diagnostic errors can occur due to rare sequence variations. F2 gene variants, other than c.*97G>A (Q74049K), will not be detected. This test was developed and its performance characteristics determined by [facility]. It has not been cleared or approved by the US Food and Drug Administration. This test was performed in a CLIA certified laboratory and is intended for clinical purposes. Counseling and informed consent are recommended for genetic testing. Consent forms are available online. Performed by [facility], [address] [place] [address] [email or web address], Valerie Mast MD, Lab. Director Source PT [id number] PCR Whole Blood 05/21/2020 8:19 PM CDT [facility] ([facility]) Blood BLOOD SPECIMEN / Unknown Lab Venipuncture / Unknown 05/14/2020 10:18 AM CDT 05/14/2020 10:48 AM CDT Sourav Moscoso MD LAB - COAGULATION OR DERABLES [facility] ([facility]) [address] [place] [address], [facility] * (ABNORMAL) PROTEIN S ANTIGEN (05/14/2020 10:18 AM CDT) [facility] Protein S Antigen Total 177(H) 60 - 150 % 05/16/2020 2:07 AM CDT [facility] ([facility]) Comment: This test was developed and its performance characteristics determined by [facility]. It has not been cleared or approved by the Food and Drug Administration. Total Protein S Antigen is an acute phase reactant protein and can be elevated in inflammatory states. Protein S Free 179(H) 57 - 157 % 05/16/2020 2:07 AM CDT [facility] ([facility]) Comment: This test was developed and its performance characteristics determined by [facility]. It has not been cleared or approved by the Food and Drug Administration. Blood BLOOD SPECIMEN / Unknown Lab Venipuncture / Unknown 05/14/2020 10:18 AM CDT 05/14/2020 10:48 AM CDT Narrative [facility] ([facility]) - 05/16/2020 2:07 AM CDT Performed at: [address] [place] [id number] [email or web address] Android Developer: Con Grimaldo MD, Phone: [phone] Sourav Moscoso MD LAB - COAGULATION OR DERABLES [facility] ([facility]) [address] [place] [address] * STRONGYLOIDES ANTIBODY IGG (05/14/2020 10:18 AM CDT) Strongyloides Antibody IgG 0.2 <=0.9 IV 05/17/2020 10:58 PM CDT [facility] ([facility]) Comment: INTERPRETIVE INFORMATION: Strongyloides Ab, IgG by ABRAHAM 0.9 IV or less....... Negative - No significant level of Strongyloides IgG antibody detected. 1.0 IV................Equivocal - The Strongyloides IgG antibody result is borderline and therefore inconclusive. Recommend retesting the patient in 2-4 weeks, if clinically indicated. 1.1 IV or greater ... Positive - IgG antibodies to Strongyloides detected, which may suggest current or past infection. False-positive results may occur with prior exposure to other helminth infections. Testing low-prevalence populations may also result in false-positive results. Performed By: [facility] [address] [place] [address] Hotel Maid: Valerie Mast MD Blood BLOOD SPECIMEN / Unknown Lab Venipuncture / Unknown 05/14/2020 10:18 AM CDT 05/14/2020 10:55 AM CDT Glenny Martin MD LAB - SEROLOGY ORDERABLES Performing Organization Address [facility] de Phone Number [facility] ([facility]) [address] * FACTOR V LEIDEN MUTATION PANEL (05/14/2020 10:18 AM CDT) Factor V Leiden Source Whole Blood 05/21/2020 4:02 PM CDT [facility] ([facility]) Factor V Leiden PCR/FRET Negative 05/21/2020 4:02 PM CDT [facility] ([facility]) Comment: Indication for testing: Assess genetic risk for thrombosis. NEGATIVE: The factor V Leiden variant, c.1601G>A; [id number], was not detected. This does not exclude [...] function in the F5 gene variant c.1601G>A (p.[id number]). Legacy nomenclature: [id number] (1691G>A) CLINICAL SENSITIVITY: 20-50 percent of individuals with an isolated VTE have the FVL variant. METHODOLOGY: Polymerase chain reaction and fluorescence monitoring. ANALYTICAL SENSITIVITY AND SPECIFICITY: 99 percent. LIMITATIONS: Diagnostic errors can occur due to rare sequence variations. F5 gene mutations, other than [id number], will not be detected. This test was developed and its performance characteristics determined by [facility]. It has not been cleared or approved by the US Food and Drug Administration. This test was performed in a CLIA certified laboratory and is intended for clinical purposes. Counseling and informed consent are recommended for genetic testing. Consent forms are available online. Performed by [facility], [address] [facility] [place] [address] www.[employer], Valerie Mast MD, Lab. Director Blood BLOOD SPECIMEN / Unknown Lab Venipuncture / Unknown 05/14/2020 10:18 AM CDT 05/14/2020 10:49 AM CDT Sourav Moscoso MD LAB - COAGULATION OR DERABLES Performing Organization Address [facility] Co de Phone Number [facility]) [address] * CARDIOLIPIN ANTIBODY IGM (05/14/2020 10:18 AM CDT) [facility] Cardiolipin Antibody IgM 0 0 - 12 MPL 05/17/2020 12:33 AM CDT [facility] ([facility]) Comment: INTERPRETIVE INFORMATION: Anti-Cardiolipin IgM 0-12 [...] other criteria phospholipid antibody tests. Performed By: [facility] [address] [place] [address] Hotel Maid: Valerie Mast MD Blood BLOOD SPECIMEN / Unknown Lab Venipuncture / Unknown 05/14/2020 10:18 AM CDT 05/14/2020 10:57 AM CDT Sourav Moscoso MD LAB - SEROLOGY ORDER ROVERTO Performing Organization Address [facility]/ZIP Co de Phone Number [facility] ([facility]) [address] * CARDIOLIPIN ANTIBODY IGG (05/14/2020 10:18 AM CDT) Cardiolipin Antibody IgG 2 0 - 14 GPL 05/17/2020 12:32 AM CDT [facility] ([facility]) Comment: INTERPRETIVE INFORMATION: Anti-Cardiolipin IgG Ab [...] other criteria phospholipid antibody tests. Performed By: [facility] [address] [place] [address] Hotel Maid: Valeire Mast MD Blood BLOOD SPECIMEN / Unknown Lab Venipuncture / Unknown 05/14/2020 10:18 AM CDT 05/14/2020 10:58 AM CDT Sourav Moscoso MD LAB - SEROLOGY ORDER ROVERTO [facility] [address] * CYTOMEGALOVIRUS ANTIBODY IGG BLOOD (05/14/2020 10:18 AM CDT) Cytomegalovirus Antibody IgG >10.00 U/mL 05/16/2020 6:28 PM CDT [facility] ([facility]) Comment: INTERPRETIVE INFORMATION: Cytomegalovirus Antibody, IgG 0.59 U/mL or less......... Not Detected 0.6 - 0.69 U/mL........... Indeterminate-Repeat testing in 10-14 days may be helpful. 0.70 U/mL or greater...... Detected In immunocompromised patients, [...] laboratory at the same time. Performed By: [facility] [address] [place] [address] Hotel Maid: Valerie Mast MD Blood BLOOD SPECIMEN / Unknown Lab Venipuncture / Unknown 05/14/2020 10:18 AM CDT 05/14/2020 10:55 AM CDT Glenny Martin MD LAB - CHEMISTRY ORDERABLES [facility]) [address] [place] [address], [facility] * RUBELLA ANTIBODY IGG TITER (05/14/2020 10:18 AM CDT) Rubella Antibody IgG 50.1 IU/mL 05/16/2020 6:32 PM CDT [facility] ([facility]) Comment: INTERPRETIVE INFORMATION: Rubella Antibody, IgG Less than 9 IU/mL ........ Not Detected 9 - 9.9 IU/mL ............ Indeterminate-Repeat testing in 10-14 days may be helpful. 10 IU/mL or Greater ...... Detected The best evidence for current infection is a significant change on two appropriately timed specimens, where both tests are done in the same laboratory at the same time. The magnitude of the measured result is not indicative of the amount of antibody present. Performed By: [facility] [address] [place] [address] Hotel Maid: Valerie Mast MD Blood BLOOD SPECIMEN / Unknown Lab Venipuncture / Unknown 05/14/2020 10:18 AM CDT 05/14/2020 10:56 AM CDT Glenny Martin MD LAB - SEROLOGY ORDERABLES Performing Organization Address City/[facility]/ZIP Co de Phone Number [facility]) [address] [place] [address] * RUBEOLA ANTIBODY IGG (05/14/2020 10:18 AM CDT) [facility] Measles (Rubeola) Antibody IgG >300.0 AU/mL 05/16/2020 2:46 PM CDT [facility] ([facility]) Comment: INTERPRETIVE INFORMATION: Measles (Rubeola) Antibody, IgG 13.4 AU/mL or less........ Negative - No significant level of detectable measles (rubeola) IgG antibody. 13.5-16.4 AU/mL .......... Equivocal - Repeat testing in 10-14 days may be helpful. 16.5 AU/mL or greater .... Positive - IgG antibody to measles (rubeola) detected which may indicate a current or past exposure/immunization to measles (rubeola). The best evidence for current infection is a significant change on two appropriately timed specimens, where both tests are done in the same laboratory at the same time. Performed By: [facility] [address] [place] [address] Hotel Maid: Valerie Mast MD Blood BLOOD SPECIMEN / Unknown Lab Venipuncture / Unknown 05/14/2020 10:18 AM CDT 05/14/2020 10:57 AM CDT Glenny Martin MD LAB - CHEMISTRY ORDERABLES Performing Organization Address City/[facility]/ZIP Co de Phone Number [facility]) [address] [place] [address] * MUMPS ANTIBODY IGG (05/14/2020 10:18 AM CDT) [facility] Mumps Virus Antibody IgG 17.2 AU/mL 05/16/2020 6:30 PM CDT [facility] ([facility]) Comment: INTERPRETIVE INFORMATION: Mumps Ab, IgG by [facility] 8.9 AU/mL or less .... Negative - No significant level of detectable IgG mumps virus antibody 9.0-10.9 AU/mL ....... Equivocal - Repeat testing in 10-14 days may be helpful 11.0 AU/mL or greater: Positive - IgG antibody to mumps virus detected, which may indicate a current or past exposure/ immunization to mumps virus. The best evidence for current infection is a significant change on two appropriately timed specimens, where both tests are done in the same laboratory at the same time. Performed By: [facility] [address] [place] [address] Hotel Maid: Valerie Mast MD Blood BLOOD SPECIMEN / Unknown Lab Venipuncture / Unknown 05/14/2020 10:18 AM CDT 05/14/2020 10:57 AM CDT Glenny Martin MD LAB - CHEMISTRY ORDERABLES [facility]) [address] [place] [address] * VARICELLA ZOSTER ANTIBODY IGG (05/14/2020 10:18 AM CDT) [facility] Varicella zoster Virus Antibody IgG 3705.0 IV 05/16/2020 2:46 PM CDT [facility] ([facility]) Comment: INTERPRETIVE INFORMATION: VZV Ab, IgG 134.9 IV or less ....... Negative - No significant level of detectable IgG varicella-zoster antibody. 135.0 - 164.9 IV ....... Equivocal - Repeat testing in 10-14 days may be helpful. 165.0 IV or greater .... Positive - IgG antibody to varicella-zoster detected, which may indicate a current or past varicella-zoster infection. The best evidence for current infection is a significant change on two appropriately timed specimens, where both tests are done in the same laboratory at the same time. Performed By: [facility] [address] [place] [address] Hotel Maid: Valerie Mast MD Blood BLOOD SPECIMEN / Unknown Lab Venipuncture / Unknown 05/14/2020 10:18 AM CDT 05/14/2020 10:57 AM CDT Glenny Martin MD LAB - CHEMISTRY ORDERABLES Performing Organization Address [facility] de Phone Number [facility]) [address] [place] [address] * PROTEIN C ACTIVITY (05/14/2020 10:18 AM CDT) Pathologist [facility] Protein C Activity 155 83 - 168 % 05/16/2020 10:47 PM CDT [facility] ([facility]) Comment: INTERPRETIVE INFORMATION: Protein C, Functional [...] reference intervals for this test in the Info [facility] Test Directory ([employer]). Performed by [facility], [address] [place] [address] www.[employer], Valerie Mast MD, Lab. Director Blood BLOOD SPECIMEN / Unknown Lab Venipuncture / Unknown 05/14/2020 10:18 AM CDT 05/14/2020 10:48 AM CDT Glenny Martin MD LAB - COAGULATI ON ORDERABLES Performing Organization Address City/[facility] Co de Phone Number [facility]) [address] * TRANSFERRIN (05/14/2020 10:18 AM CDT) Pathologist [facility] Transferrin 245 174 - 382 mg/dL 05/14/2020 11:41 AM CDT [facility] Transferrin Saturation % 27 16 - 50 % 05/14/2020 11:41 AM CDT [facility] Blood BLOOD SPECIMEN / Unknown Lab Venipuncture / Unknown 05/14/2020 10:18 AM CDT 05/14/2020 10:57 AM CDT Glenny Martin MD LAB - CHEMISTRY ORDERABLES [place] [id number] [place] [phone], [facility] [phone] * TOXOPLASMA GONDII ANTIBODY IGG (05/14/2020 10:18 AM CDT) Toxoplasma Antibody IgG <3.0 IU/mL 05/16/2020 6:32 PM CDT [facility] ([facility]) Comment: INTERPRETIVE INFORMATION: Toxoplasma Ab, IgG 7.1 IU/mL or less....... Not Detected 7.2-8.7 IU/mL .......... Indeterminate-Repeat testing in 10-14 days may be helpful. 8.8 IU/mL or greater ... Detected The best [...] the amount of antibody present. Performed By: [facility] [address] [place] [address] Hotel Maid: Valerie Mast MD Blood BLOOD SPECIMEN / Unknown Lab Venipuncture / Unknown 05/14/2020 10:18 AM CDT 05/14/2020 10:58 AM CDT Glenny Martin MD LAB - CHEMISTRY ORDERABLES [facility]) [address] * (ABNORMAL) MADIHA-MORRIS VIRUS ANTIBODY TO VCA IGG (05/14/2020 10:18 AM CDT) Madiha-Morris Virus Antibody IgG Viral Capsid Antigen 115.0(H) 0.0 - 21.9 U/mL 05/16/2020 5:10 PM CDT [facility] ([facility]) Comment: INTERPRETIVE INFORMATION: Madiha-Morris Virus Antibody to Viral Capsid Antigen, IgG 17.9 U/mL or less.......Not Detected 18.0-21.9 U/mL..........Indeterminate - Repeat testing in 10-14 days may be helpful. 22.0 U/mL or greater....Detected Performed By: [facility] [address] [place] [address] Hotel Maid: Valerie Mast MD Blood BLOOD SPECIMEN / Unknown Lab Venipuncture / Unknown 05/14/2020 10:18 AM CDT 05/14/2020 10:55 AM CDT Glenny Martin MD LAB - CHEMISTRY ORDERABLES [facility] ([facility]) [address] [place] [address], [facility] * (ABNORMAL) HEMOGLOBIN A1C (05/14/2020 10:18 AM CDT) Only the most recent of2 resultswithin the time period is included. Hemoglobin A1c 7.7(H) 4.4 - 6.3 % 05/14/2020 3:37 PM CDT [facility] Estimated Average Glucose 174 mg/dL 05/14/2020 3:37 PM T [facility] Comment: HbA1c Interpretation: Treatment target values recommended by ADA and other clinical organizations should be used to evaluate metabolic control in patients. Treatment Target Values: Normal : < 5.7% Pre-diabetes: 5.7-6.4% Diabetes: Equal to or greater than 6.5% Reference: [place] [employer] Association Standards of Care in Diabetes -2014 In patients 70 years and older consider HbA1c target range of 7.0-7.5% Reference: Diabetes Mellitus in Older People: Position Statement on behalf of the International Association of Gerontology and Geriatrics (IAGG), the Diabetes Working Constitution Party for Older People (EDWPOP), and the International Task Force of Experts in Diabetes. Hermelindo Remy et al. J [place] [employer] Directors Association. 2012 Test results diagnostic of diabetes should be repeated for confirmation. The Sebia Capillary 2 assay for the measurement of HbA1c is a National Glycohemoglobin Standardization Program (NGSP)certified method. Blood BLOOD SPECIMEN / Unknown Lab Venipuncture / Unknown 05/14/2020 10:18 AM CDT 05/14/2020 10:55 AM CDT Glenny Martin MD LAB - CHEMISTRY ORDERABLES Performing Organization Address [facility]/ZIP Co de Phone Number [address] [address], [facility] [phone] * (ABNORMAL) HOMOCYSTEINE BLOOD QUANTITATIVE (05/14/2020 10:18 AM CDT) Homocysteine 21.1(H) 4.4 - 16.2 umol/L 05/14/2020 11:51 AM CDT [facility] Blood BLOOD SPECIMEN / Unknown Lab Venipuncture / Unknown 05/14/2020 10:18 AM CDT 05/14/2020 10:48 AM CDT Sourav Moscoso MD LAB - CHEMISTRY SUSANNAH LEONE Performing Organization Address [facility] Co de Phone Number [address] [address], [place] [phone] * ANTITHROMBIN III ACTIVITY (05/14/2020 10:18 AM CDT) Pathologist [facility] AT III Activity 125 76 - 128 % 0 9:58 PM CDT [facility]) Comment: REFERENCE INTERVAL: Antithrombin, Enzymatic (Activity) Access complete set of age- and/or gender-specific reference intervals for this test in the Info Laboratory Test Directory ([employer]). Performed by [facility], [address] [place] [id number] www.[employer], Valerie Mast MD, Lab. Director Blood BLOOD SPECIMEN / Unknown Lab Venipuncture / Unknown 05/14/2020 10:18 AM CDT 05/14/2020 10:51 AM CDT Sourav Moscoso MD LAB - COAGULATION OR DERABLES Performing Organization Address City/[facility]/ZIP Co de Phone Number [facility] [address] [place] [address], [facility] * (ABNORMAL) VITAMIN D 25-HYDROXY (05/14/2020 10:18 AM CDT) Only the most recent of2 resultswithin the time period is included. Vitamin D, 25 Hydroxy 23.0(L) See comment: ng/mL 05/14/2020 11:48 AM CDT [facility] Comment: The recommendations for 25-Hydroxy Vitamin D clinical decision points are as follows: Deficient: <20.0 ng/mL Insufficient: 20.0 - 29.9 ng/mL Sufficient: > or =30.0 ng/mL If the 25-Hydroxy Vitamin D results are inconsitent with clinical evidence, it is recommended that follow-up testing using a method such as LC/MS/MS be performed to confirm the result. Reference: The Endocrine Society Clinical Practice Guidelines. 2011 Blood BLOOD SPECIMEN / Unknown Lab Venipuncture / Unknown 05/14/2020 10:18 AM CDT 05/14/2020 10:55 AM CDT Glenny Martin MD LAB - CHEMISTRY ORDERABLES Performing Organization Address City/[facility]/ZIP Co de Phone Number [address] [address], [facility] [phone] * BLOOD TYPE ABO+ RH PANEL (05/14/2020 10:18 AM CDT) Pathologist [facility] ABO Rh A POS 05/14/2020 12:11 PM CDT [facility] Blood BLOOD SPECIMEN / Unknown Lab Venipuncture / Unknown 05/14/2020 10:18 AM CDT 05/14/2020 11:29 AM CDT Glenny Martin MD LAB - BLOOD BAN K ORDERABLES [facility] LAB [address] [place] [phone], [facility] [phone] * NICOTINE + METABOLITES BLOOD (05/14/2020 10:18 AM CDT) Nicotine <2 ng/mL 05/18/2020 10:08 PM CDT [facility] ([facility]) Comment: Consistent with abstinence from nicotine-containing products for at least 1 week. INTERPRETIVE INFORMATION: Nicotine and Metabolites, Serum or Plasma, Quantitative Methodology: Quantitative Liquid Chromatography-Tandem Mass Spectrometry Positive cutoff: 2 ng/mL For medical purposes only; not valid for forensic use. This test is designed to evaluate recent use of nicotine-containing products. Passive and active exposure cannot be discriminated definitively, although a cutoff of 10 ng/mL cotinine is frequently used for surgery qualification purposes. For smoking cessation programs or compliance testing, the absence of expected drug(s) and/or drug metabolite(s) may indicate non-compliance, inappropriate timing of specimen collection relative to drug administration, poor drug absorption, or limitations of testing. This test cannot distinguish between use of tobacco and purified nicotine products. The concentration value must be greater than or equal to the cutoff to be reported as positive. Test developed and characteristics determined by [facility]. See Compliance Statement B: [employer] Performed By: [facility] [address] [place] [address] Hotel Maid: Valerie Mast MD 3-Hydroxy Cotinine <2 ng/mL 2019 10:08 PM CDT [facility] Cotinine <2 ng/mL 05/18/2020 10:08 PM CDT [facility] Blood BLOOD SPECIMEN / Unknown Lab Venipuncture / Unknown 05/14/2020 10:18 AM CDT 05/14/2020 10:57 AM CDT Glenny Martin MD LAB - CHEMISTRY ORDERABLES [facility] [address] * (ABNORMAL) CBC W AUTO DIFFERENTIAL (05/14/2020 10:18 AM CDT) Only the most recent of2 resultswithin the time period is included. WBC 5.0 3.5 - 10.5 10 3/uL 05/14/2020 11:03 AM CDT [facility] RBC 3.45(L) 4.30 - 5.70 10 6/uL 05/14/2020 11:03 AM [facility] Hemoglobin 10.7(L) [...] HOSPITAL Platelet Count 232 150 - 400 10 3/uL 05/14/2020 11:03 AM [facility] RDW-SD 42.4 36.0 - 50.0 fL 05/14/2020 11:03 AM [facility] RDW-CV 12.9 11.2 - 14.8 % 05/14/2020 11:03 AM [facility] MPV 9.8 9.3 - 12.8 fL 05/14/2020 11:03 AM [facility] nRBC Absolute 0.00 0 10 3/uL 05/14/2020 11:03 AM [facility] nRBC Auto [...] HOSPITAL Neutrophils Absolute 2.7 1.6 - 7.0 10 3/uL 05/14/2020 11:03 AM [facility] Lymphocyte Absolute 1.6 0.8 - 2.9 10 3/uL 05/14/2020 11:03 AM [facility] Monocytes Absolute 0.47 0.14 - 0.66 10 3/uL 05/14/2020 11:03 AM [facility] Eosinophils Absolute 0.19 0.00 - 0.45 10 3/uL 05/14/2020 11:03 AM [facility] Basophils Absolute 0.03 0.00 - 0.06 10 3/uL 05/14/2020 11:03 AM [facility] Immature Granulocytes % 0.2 0.0 - 1.0 % 05/14/2020 11:03 AM [facility] Blood BLOOD SPECIMEN / Unknown Lab Venipuncture / Unknown 05/14/2020 10:18 AM CDT 05/14/2020 10:55 AM [facility] Glenny Martin MD LAB - HEMATOLOG Y ORDERABLES Performing Organization Address City/State/[facility] Co de Phone Number [facility] [address] [place] [phone], [facility] [phone] * (ABNORMAL) COMPREHENSIVE METABOLIC PANEL (05/14/2020 10:18 AM [facility]) Only the most recent of2 resultswithin the [...] 05/14/2020 10:18 AM CDT 05/14/2020 10:55 AM [facility] Glenny Martin MD LAB - CHEMISTRY ORDERABLES [facility] [address] [place] [phone], [facility] [phone] * PROSTATE SPECIFIC ANTIGEN SCREEN (05/14/2020 10:18 AM CDT) PSA Total 0.4 0.0 - 4.0 ng/mL 05/14/2020 11:59 AM [facility] Blood BLOOD SPECIMEN / Unknown Lab Venipuncture / Unknown 05/14/2020 10:18 AM CDT 05/14/2020 10:55 AM CDT Glenny Martin MD LAB - CHEMISTRY ORDERABLES Performing Organization Address [facility] Co de Phone Number [address] [phone], [facility] [phone] * (ABNORMAL) PHOSPHORUS BLOOD (05/14/2020 10:18 AM CDT) Phosphorus 5.1(H) 2.3 - 4.7 mg/dL 05/14/2020 11:41 AM CDT [facility] Blood BLOOD SPECIMEN / Unknown Lab Venipuncture / Unknown 05/14/2020 10:18 AM CDT 05/14/2020 10:55 AM CDT Glneny Martin MD LAB - CHEMISTRY ORDERABLES Performing Organization Address [facility] de Phone Number [address] [phone], [facility] [phone] * IRON BLOOD (05/14/2020 10:18 AM CDT) Iron 84 50 - 175 mcg/dL 05/14/2020 11:41 AM CDT [facility] Blood BLOOD SPECIMEN / Unknown Lab Venipuncture / Unknown 05/14/2020 10:18 AM CDT 05/14/2020 10:57 AM CDT Glenny Martin MD LAB - CHEMISTRY ORDERABLES Performing Organization Address [facility] Co de Phone Number [address] [address], [facility] [phone] * (ABNORMAL) HEPATITIS B SURFACE ANTIBODY (05/14/2020 [...] Hepatitis B Surface Antibody Numeric Result Interpretation: Nonreactive: <8.0 mIU/mL Indeterminate: 8.0 - 12.0 mIU/mL Reactive: >12.0 mIU/mL Blood BLOOD SPECIMEN / Unknown Lab Venipuncture / Unknown 05/14/2020 10:18 AM CDT 05/14/2020 10:55 AM CDT Glenny Martin MD LAB - CHEMISTRY ORDERABLES [address] [address], [facility] [phone] * HEPATITIS B CORE ANTIBODY (05/14/2020 10:18 AM CDT) HBc Antibody Total Non-reacti ve Non-reacti ve 05/14/2020 11:47 AM CDT [facility] Blood BLOOD SPECIMEN / Unknown Lab Venipuncture / Unknown 05/14/2020 10:18 AM CDT 05/14/2020 10:55 AM CDT Glenny Martin MD LAB - CHEMISTRY ORDERABLES Performing Organization Address City/[facility]/ZIP Co de Phone Number [address] [address], [place] [phone] * HEPATITIS B SURFACE ANTIGEN W RFLX CONFIRMATION (05/14/2020 10:18 AM CDT) Hepatitis B Virus Surface Antigen Non-reacti ve Non-reacti ve 05/14/2020 11:47 AM CDT [facility] Blood BLOOD SPECIMEN / Unknown Lab Venipuncture / Unknown 05/14/2020 10:18 AM CDT 05/14/2020 10:55 AM CDT Glenny Martin MD LAB - CHEMISTRY ORDERABLES Performing Organization Address City/[facility]/ZIP Co de Phone Number [address] [address], [place] [phone] * ALCOHOL ETHYL BLOOD (05/14/2020 10:18 AM CDT) [facility] Interpretation Ethanol None Detected None Detected mg/dL 05/14/2020 11:41 AM CDT [facility] Comment:Ethanol levels less than 10 mg/dL are resulted as None detected . Blood BLOOD SPECIMEN / Unknown Lab Venipuncture / Unknown 05/14/2020 10:18 AM CDT 05/14/2020 10:55 AM CDT Glenny Martin MD LAB - CHEMISTRY ORDERABLES [address] [address], [facility] [phone] * HEPATITIS C ANTIBODY (05/14/2020 10:18 AM CDT) [facility] Hepatitis C Antibody Non-react bianca Non-reac tive [...] Glenny Martin MD LAB - CHEMISTRY ORDERABLES [address] [address], [facility] [phone] * (ABNORMAL) HEPATITIS A ANTIBODY (05/14/2020 10:18 AM CDT) [facility] Hepatitis A Virus Antibody Total Positive( A) Negative 05/16/2020 11:02 AM CDT [facility] ([facility]) Comment: The positive anti-HAV is consistent with recent or remote Hepatitis A infection or antibody response to HAV vaccination. False positive anti-HAV can occur. Performed by [facility], [address] [place] [address] www.[employer], Valerie Mast MD, Lab. Director Blood BLOOD SPECIMEN / Unknown Lab Venipuncture / Unknown 05/14/2020 10:18 AM CDT 05/14/2020 10:57 AM CDT Glenny Martin MD LAB - CHEMISTRY ORDERABLES Performing Organization Address City/[facility]/ZIP Co de Phone Number [facility] ([facility]) [address] [place], [place] [address] * (ABNORMAL) FERRITIN (05/14/2020 10:18 AM CDT) Ferritin 502(H) 22 - 275 ng/mL 05/14/2020 11:47 AM CDT [facility] Blood BLOOD SPECIMEN / Unknown Lab Venipuncture / Unknown 05/14/2020 10:18 AM CDT 05/14/2020 10:55 AM CDT Glenny Martin MD LAB - CHEMISTRY ORDERABLES [place] [phone] [phone] * (ABNORMAL) LIPID PROFILE (05/14/2020 10:18 AM CDT) Cholesterol Total 137 <200 mg/dL 05/14/2020 11:41 AM CDT [facility] HDL 28(L) >40 mg/dL 05/14/2020 11:41 AM CDT [facility] Comment: ATP III Classification of HDL Cholesterol: <40 mg/dL: Considered a major risk factor. >60 mg/dL: Considered a negative risk factor. LDL Calculated 70 <100 mg/dL 05/14/2020 11:41 AM T [facility] Comment: ATP III Classification of LDL Cholesterol: <100 mg/dL: Optimal 100 - 129 mg/dL: Near Optimal/Above Optimal 130 - 159 mg/dL: Borderline High 160 - 189 mg/dL: High >190 mg/dL: Very High Triglycerides 196(H) <150 mg/dL 05/14/2020 11:41 AM CDT [facility] Comment: ATP III Classification of Triglycerides: <150 mg/dL: Normal 150 - 199 mg/dL: Borderline High 200 - 400 mg/dL: High >500 mg/dL: Very High Blood BLOOD SPECIMEN / Unknown Lab Venipuncture / Unknown 05/14/2020 10:18 AM CDT 05/14/2020 10:55 AM CDT Glenny Martin MD LAB - CHEMISTRY ORDERABLES Performing Organization Address City/[facility]/ZIP Co de Phone Number [facility] [address] [place] [address], [facility] [phone] * TYPE + SCREEN PANEL (05/14/2020 10:06 AM CDT) Antibody Screen NEG 0 12:17 PM CDT [facility] ABO Rh A POS 05/14/2020 12:17 PM CDT [facility] Blood Bank BLOOD SPECIMEN / Unknown Lab Venipuncture / Unknown 05/14/2020 10:06 AM CDT 05/14/2020 11:30 AM CDT Glenny Martin MD LAB - BLOOD BAN K ORDERABLES Performing Organization Address [facility] Co de Phone Number [facility] [address] [place] [address], [facility] [phone] * XR PANOREX (05/14/2020 7:35 AM CDT) Anatomical Region Laterality Modality Head Radiographic Toma ging 05/14/2020 7:56 AM CDT Impressions 05/15/2020 7:51 AM CDT IMPRESSION: No periapical abscess identified. Dictated by Kristie Bee MD (residential program worker). I, Dr. CONRAD GONZLAES MD have personally reviewed and interpreted this examination/study. This report was electronically signed by CONRAD GONZALES MD on 05/15/2020 7:51 AM . Narrative 05/15/2020 7:51 [...] identified. Dictated by Kristie Bee MD (residential program worker). Dr. CONRAD Champion MD have personally reviewed [...] is normal. Dictated by Kristie Bee MD (residential program worker). Dr. CONRAD Champion MD have personally reviewed and interpreted this examination/study. This report was electronically signed by CONRAD GONZALES MD on 05/15/2020 7:49 AM . Narrative 05/15/2020 7:49 [...] is normal. Dictated by Kristie Bee MD (residential program worker). I, Dr. CONRAD GONZALES MD have personally reviewed and interpreted this examination/study. This report was electronically signed by CONRAD GONZALES MD on05/15/2020 7:49 AM . Glenny Martin MD DIAGNOSTIC IMAG ING ORDERABLES * LAB RESULTS ORDER (06/11/2019 12:33 PM CDT) Narrative 06/11/2019 12:33 PM CDT Ordered by an unspecified provider. Scanned Document LAB - THERAPEUTIC DR JORGE MONITORING ORDERABLES * (ABNORMAL) CREATININE CLEARANCE URINE TIMED + BLOOD (04/27/2019 9:17 AM CDT) Creatinine 4.63(H) 0.70 - 1.33 mg/dL [facility] Comment: For patients >49 years of age, the reference limit for Creatinine is approximately 13% higher for people identified as -[place]jib[place]. eGFR by MDRD 14(L) > OR = [...] Lbs 260 [facility] Comment: Test Performed at: [facility] [address] [place] [address] ANA REYES DO,MPH 04/27/2019 9:17 AM CDT 04/27/2019 9:19 AM CDT Judah Norton MD LAB - URINE CHEMISTR Y ORDERABLES [facility] [address] [place] [address] * XR FOOT RIGHT 3VW OR MORE [...] was electronically signed by CONRAD GONZALES MD on 04/26/2019 2:11 PM . Narrative 04/26/2019 2:11 [...] was electronically signed by CONRAD GONZALES MD on 04/26/2019 2:11 PM . Narrative 04/26/2019 2:11 [...] was electronically signed by CONRAD GONZALES MD on 04/26/2019 2:11 PM . Narrative 04/26/2019 2:11 [...] was electronically signed by CONRAD GONZALES MD on 04/26/2019 2:11 PM . Narrative 04/26/2019 2:11 [...] Region Laterality Modality Pelvis, Lower Extremity Radiogra [facility] Imaging 04/26/2019 1:20 PM CDT Impressions [...] was electronically signed by CONRAD GONZALES MD on 04/26/2019 2:11 PM . Narrative 04/26/2019 2:11 [...] was electronically signed by CONRAD GONZALES MD on 04/26/2019 2:11 PM . Narrative 04/26/2019 2:11 [...] Yellow Straw, Yellow, Colorless 04/26/2019 1:31 PM [facility] Clarity UA Slt Cloudy Clear, Slt Cloudy 04/26/2019 1:31 PM [facility] Specific [place] UA 1.013 1.005 - 1.030 04/26/2019 1:31 PM [facility] pH UA 5.0 5.0 - 8.0 pH 04/26/2019 1:31 PM [facility] Protein UA 2+(A) Negative mg/dL 04/26/2019 1:31 PM [facility] Glucose UA 1+(A) Negative mg/dL 04/26/2019 1:31 PM [facility] Ketone UA Negative Negative mg/dL 04/26/2019 1:31 PM [facility] Bilirubin UA Negative Negative mg/dL 04/26/2019 1:31 PM [facility] Blood UA Negative Negative 04/26/2019 1:31 PM CDT [facility] Nitrite UA Negative Negative 04/26/2019 1:31 PM CDT [facility] Leukocyte Esterase Negative Negative 04/26/2019 1:31 PM CDT [facility] Urobilinogen UA Negative Negative mg/dL 04/26/2019 1:31 PM CDT [facility] RBC UA 0-2 None Seen, 0-2, 3-5 /HPF 04/26/2019 1:31 PM CDT [facility] WBC UA 0-5 None Seen, 0-5 /HPF 04/26/2019 1:31 PM CDT [facility] Squamous Epithelial Cells UA 0-2 None Seen, 0-2 /HPF 04/26/2019 1:31 PM CDT [facility] Mucus UA 1+ None, 1+ /LPF 04/26/2019 1:31 PM CDT [facility] Hyaline Casts UA 11-20(A) None Seen, 0-2 /LPF 04/26/2019 1:31 PM CDT [facility] Urine URINE SPECIMEN OBTAINED BY CLEAN CATCH PROCEDURE / Unknown Collection / Unknown 04/26/2019 12:42 PM CDT 04/26/2019 1:18 PM CDT Narrative [facility] - 04/26/2019 1:31 PM CDT Judah Norton MD LAB - URINALYSIS ORD ERABLES [facility] [address] [place] [address] * CYCLIC CITRUL PEPTIDE ANTIBODY IGG/IGA (CCP) (04/26/2019 12:42 PM CDT) CCP Antibodies IgG/IgA 17 0 - 19 units 04/29/2019 9:06 PM CDT [facility] ([facility]) Comment: Negative <20 Weak positive 20 - 39 Moderate positive 40 - 59 Strong positive >59 Blood BLOOD SPECIMEN / Unknown Lab Venipuncture / Unknown 04/26/2019 12:42 PM CDT 04/26/2019 1:18 PM CDT Narrative [facility] ([facility]) - 04/29/2019 9:06 PM CDT Performed at: 01 - [facility] [id number] [email or web address] Android Developer: Con Grimaldo MD, Phone: [phone] Judah Norton MD LAB - SEROLOGY ORDER ROVERTO [facility] ([facility]) [address] [id number] * RHEUMATOID FACTOR BLOOD QUANTITATIVE (04/26/2019 12:42 PM CDT) Rheumatoid Factor <15 <30 IU/mL 04/26/2019 2:34 PM CDT [facility] Blood BLOOD SPECIMEN / Unknown Lab Venipuncture / Unknown 04/26/2019 12:42 PM CDT 04/26/2019 1:18 PM CDT Judah Norton MD LAB - CHEMISTRY ORDE SULEMA [address] [phone] * C-REACTIVE PROTEIN (04/26/2019 12:42 PM CDT) Pathologist [facility] C-Reactive Protein <0.5 <=0.5 mg/dL 04/26/2019 2:21 PM CDT [facility] Blood BLOOD SPECIMEN / Unknown Lab Venipuncture / Unknown 04/26/2019 12:42 PM CDT 04/26/2019 1:19 PM CDT Judah Norton MD LAB - CHEMISTRY SUSANNAH LEONE [address] [phone] * SHAWN BLOOD SCREEN W/REFLEX TITER (04/26/2019 12:42 PM CDT) SHAWN Negative 04/27/2019 3:07 PM CDT [facility] ([facility]) Comment: Negative <1:80 Borderline 1:80 Positive >1:80 Blood BLOOD SPECIMEN / Unknown Lab Venipuncture / Unknown 04/26/2019 12:42 PM CDT 04/26/2019 1:18 PM CDT Narrative [facility] ([facility]) - 04/27/2019 3:07 PM CDT Performed at: - [facility] [address] [place], [place] [id number] [email or web address] Android Developer: Mehdi Del Angel PhD, Phone: [phone] Judah Norton MD LAB - CHEMISTRY SUSANNAH LEONE Performing Organization Address City/[facility]/ZIP Co de Phone Number [facility] ([facility]) [address] [place] [address] * SS-B (SJOGREN'S) ANTIBODY (04/26/2019 12:42 PM CDT) SS-B LA Antibody 2.8 0.0 - 19.9 Units 04/30/2019 9:45 AM CDT [facility] Comment: JOSE ENRIQUE Antibody Numeric Result Interpretation: <20.0 Units: Negative 20.0 - 39.0 Units: Weakly Positive >39.0 Units: Positive Blood BLOOD SPECIMEN / Unknown Lab Venipuncture / Unknown 04/26/2019 12:42 PM CDT 04/26/2019 1:19 PM CDT Judah Norton MD LAB - CHEMISTRY SUSANNAH LEONE Performing Organization Address City/[facility]/ZIP Co de Phone Number [address] [phone] * SS-A (SJOGREN'S) ANTIBODY (04/26/2019 12:42 PM CDT) SS-A (Ro) Antibody 2.7 0.0 - 19.9 Units 04/30/2019 9:45 AM CDT [facility] Comment: JOSE ENRIQUE Antibody Numeric Result Interpretation: <20.0 Units: Negative 20.0 - 39.0 Units: Weakly Positive >39.0 Units: Positive Blood BLOOD SPECIMEN / Unknown Lab Venipuncture / Unknown 04/26/2019 12:42 PM CDT 04/26/2019 1:19 PM CDT Judah Norton MD LAB - CHEMISTRY SUSANNAH LEONE [address] [phone] * ALDOLASE (04/26/2019 12:42 PM CDT) [facility] Aldolase 6.9 3.3 - 10.3 U/L 04/29/2019 3:08 PM CDT [facility] ([facility]) Blood BLOOD SPECIMEN / Unknown Lab Venipuncture / Unknown 04/26/2019 12:42 PM CDT 04/26/2019 1:18 PM CDT Narrative [facility] ([facility]) - 04/29/2019 3:08 PM CDT Performed at: - [address] [id number] [email or web address] Android Developer: Mehdi Del Angel PhD, Phone: [phone] Judah Norton MD LAB - CHEMISTRY SUSANNAH LEONE Performing Organization Address City/[facility]/ZIP Co de Phone Number [facility] ([facility]) [address] [place] [address] * (ABNORMAL) ERYTHROCYTE SEDIMENTATION RATE (04/26/2019 12:42 PM CDT) [facility] Erythrocyte Sedimentation Rate Westergren 34(H) 0 - 20 MM/HR 04/26/2019 1:31 PM CDT [facility] Blood BLOOD SPECIMEN / Unknown Lab Venipuncture / Unknown 04/26/2019 12:42 PM CDT 04/26/2019 1:19 PM CDT Judah Norton MD LAB - HEMATOLOGY HUAN WALTON [address] [phone] * (ABNORMAL) LDH BLOOD (04/26/2019 12:42 PM CDT) [facility] LDH Total 268(H) 125 - 243 Units/L 04/26/2019 1:43 PM CDT [facility] Blood BLOOD SPECIMEN / Unknown Lab Venipuncture / Unknown 04/26/2019 12:42 PM CDT 04/26/2019 1:19 PM CDT Judah Norton MD LAB - CHEMISTRY SUSANNAH LEONE Performing Organization Address [facility]/ZIP Co de Phone Number [address] [phone] * (ABNORMAL) CK BLOOD (04/26/2019 12:42 PM CDT) Pathologist [facility] CK Total 280(H) 30 - 200 Units/L 04/26/2019 1:43 PM CDT [facility] Blood BLOOD SPECIMEN / Unknown Lab Venipuncture / Unknown 04/26/2019 12:42 PM CDT 04/26/2019 1:19 PM CDT Judah Norton MD LAB - CHEMISTRY SUSANNAH LEONE Performing Organization Address [facility]/ZIP Co de Phone Number [address] [phone] * CARDIAC PROCEDURE ORDER (11/27/2018 1:35 AM [...] UNKNOWN SAMPLE TYPE 11/26/2018 10:39 AM CDT [facility] Blood BLOOD SPECIMEN / Unknown 11/23/2018 2:11 PM CDT 11/26/2018 10:39 AM CDT Francisco Luque MD LAB - POINT OF CARE ORDERABLES [facility] [address] [place] [address] * (ABNORMAL) BASIC METABOLIC PANEL (CALCIUM TOTAL) (11/23/2018 3:25 AM CDT) Only the most recent of2 resultswithin the time period is included. [facility] Glucose 195(H) 74 - 106 mg/dL 11/23/2018 5:10 AM CDT [facility] Sodium 135(L) 136 - 145 mmol/L 11/23/2018 5:10 AM CDT [facility] Potassium 3.8 3.5 - 5.1 mmol/L 11/23/2018 5:10 AM CDT [facility] Chloride 104 98 - 107 mmol/L 11/23/2018 5:10 AM CDT [facility] CO2 23 23 - 31 mmol/L 11/23/2018 5:10 AM CDT [facility] Calcium 8.3(L) 8.4 - 10.2 mg/dL 11/23/2018 5:10 AM CDT [facility] Anion Gap 8 8 - 16 mmol/L 11/23/2018 5:10 AM CDT [facility] BUN 56(H) 8.4 - 25.7 mg/dL 11/23/2018 5:10 AM CDT [facility] Creatinine 2.74(H) 0.73 - 1.18 mg/dL 11/23/2018 5:10 AM CDT [facility] eGFR by MDRD 25(L) >60 mL/min/1.7 3m2 11/23/2018 5:10 AM CDT [facility] eGFR by MDRD 30(L) >60 mL/min/1.7 3m2 11/23/2018 5:10 AM CDT [facility] Blood BLOOD SPECIMEN / Unknown Venipuncture / Unknown 11/23/2018 3:25 AM CDT 11/23/2018 4:37 AM CDT Francisco Luque MD LAB - CHEMISTRY SUSANNAH LEONE [facility] Organization Address City/State/ZIP Co de Phone Number [facility] [address] [place] [address] * CARDIAC CATH PROCEDURE (11/22/2018 12:00 PM CDT) 11/22/2018 12:0 0 PM CDT Narrative Procedure Note Francisco Luque MD - 11/23/2018 3:23 AM CDT [facility] CARDIAC CATHETERIZATION PATIENT: JUVENAL GARVIN MR#: [id number] ADMIT DATE: 11/22/2018 CSN: [id number] PROCEDURE DATE: 11/22/2018 :1970 PHYSICIAN: Francisco Luque Jr., MD ROOM: [facility] REFERRING PHYSICIAN: Francisco Luque Jr., MD PROCEDURE [...] sheath wasplaced in right femoral artery. A 5-Japanese #4 Kranthi left coronary catheterwas advanced in the left coronary ostium and left coronary arteriograms were performed in multiple projections. This catheter was removed and exchangedfor 5-Japanese #4 Kranthi right coronary catheter, was advanced in the right coronary ostium. Right coronary arteriography was performed in multiple projections. This catheter was removed. The decision was made to proceedwith intervention and therefore no left ventriculogram was performed to avoid excess dye in this patient with severe kidney disease. The arterial sheathwas exchanged for 6-Japanese sheath followed by advancement of a 6-Japanese #4Judkins right guide to the right coronary [...] descending artery. Injection of contrast reveals an [id number]% stenosis and mid 90% stenosis and a [...] gentleman. FRANCISCO LUQUE JR., MD RPR/MODL #: [id number] cc: Francisco Luque Jr., MD MEDICAL/SURGICAL CARDIAC CATHETERIZATION - DP Francisco Luque MD CARDIAC SERVICES ORD ERABLES [facility] * XR HANDS BILATERAL 2 VIEWS (03/25/2015 5:31 PM CDT) Anatomical Region Laterality Modality Wrist / Hand, Upper Extremity Ra diographic Imaging 03/25/2015 8:09 PM CDT Impressions 03/25/2015 8:17 PM CDT 1. No evidence of inflammatory arthritis involving spine, sacroiliac joints, hands, or feet. 2. Deformities involving left fourth metatarsal and right third metatarsal likely reflect previous fractures. The tarsometatarsal articulations are not well evaluated in either foot. 3. No substantial degenerative disc disease in the cervical or lumbosacral spine. Mild facet arthritis. 4. Mild degenerative changes of both sacroiliac joints. Narrative [...] There are no periarticular erosions or widening. Procedure [...] CDT Impressions 03/25/2015 8:17 PM CDT 1. No evidence of inflammatory arthritis involving spine, sacroiliac joints, hands, or feet. 2. Deformities involving left fourth metatarsal and right third metatarsal likely reflect previous fractures. The tarsometatarsal articulations are not well evaluated in either foot. 3. No substantial degenerative disc disease in the cervical or lumbosacral spine. Mild facet arthritis. 4. Mild degenerative changes of both sacroiliac joints. Narrative [...] There are no periarticular erosions or widening. Procedure [...] Mild degenerative changes of both sacroiliac joints. Ymailet [facility] ORDERABLES * XR SACROILIAC JOINTS < 3 VW (03/25/2015 5:31 PM CDT) Anatomical Region Laterality Modality Pelvis, Lower Extremity [facility] 03/25/2015 8:09 PM CDT Impressions 03/25/2015 8:17 PM CDT 1. No evidence of inflammatory arthritis involving spine, sacroiliac joints, hands, or feet. 2. Deformities involving left fourth metatarsal and right third metatarsal likely reflect previous fractures. The tarsometatarsal articulations are not well evaluated in either foot. 3. No substantial degenerative disc disease in the cervical or lumbosacral spine. Mild facet arthritis. 4. Mild degenerative changes of both sacroiliac joints. Narrative [...] There are no periarticular erosions or widening. Procedure [...] CDT Impressions 03/25/2015 8:17 PM CDT 1. No evidence of inflammatory arthritis involving spine, sacroiliac joints, hands, or feet. 2. Deformities involving left fourth metatarsal and right third metatarsal likely reflect previous fractures. The tarsometatarsal articulations are not well evaluated in either foot. 3. No substantial degenerative disc disease in the cervical or lumbosacral spine. Mild facet arthritis. 4. Mild degenerative changes of both sacroiliac joints. Narrative [...] There are no periarticular erosions or widening. Procedure [...] CDT Impressions 03/25/2015 8:17 PM CDT 1. No evidence of inflammatory arthritis involving spine, sacroiliac joints, hands, or feet. 2. Deformities involving left fourth metatarsal and right third metatarsal likely reflect previous fractures. The tarsometatarsal articulations are not well evaluated in either foot. 3. No substantial degenerative disc disease in the cervical or lumbosacral spine. Mild facet arthritis. 4. Mild degenerative changes of both sacroiliac joints. Narrative [...] There are no periarticular erosions or widening. Procedure [...] [facility] ORDERABLES Care Teams Flight Engineer Manager Relationship Specialty Start Date End Date Aditya Castro Update Information PCP - General 03/06/19
--- OUTSIDE RECORDS SUMMARY | 2024-10-16 15:33 | XMS_ITS | Clinical Summary ---
Author Organization [facility] Address [address] [place] [address] Care Team Providers Care Case Supervisor Name Role Phone Aditya Castro MD Primary Care Provider [phone] Allergies Active Allergy Reactions Criticality Noted Date Comments Allopurinol Shortness of Breath/Wheezing,Othe r (See Comments) High 07/31/2019 Shuts my kidneys down per patient. Chlorhexidine Other (See Comments) High 06/29/2022 Skin peels all over and becomes tender Iodinated Contrast Media Rash High 07/10/2017 Ticagrelor Rash High 05/04/2017 Medications isosorbide mononitrate (IMDUR) 30 mg Extended Release 24 hour tablet Take 30 mg by mouth daily electorate officer. Active clopidogrel (PLAVIX) 75 mg Tablet Take [...] Take 50,000 Units by mouth. Active Insulin [place], Disposable, (TRUEPLUS PEN NEEDLE) 31 gauge x [...] (06/29/2022): Added automatically from request for surgery [id number] Right upper quadrant pain 09/24/2020 Pre-transplant evaluation for kidney transplant 03/24/2020 Overview (06/29/2022): Images from the original note were not included. Juvenal Daigle 1970 Referring Jack Spooler Tender: Leandro Reyes Dialysis Info: Type: PD Time: 160 days (11/05/2019) Blood Type: A Body mass index is 37.8 kg/m . ALERTS Hydraulic Miner Blasting: Vashti Lizama NP Past Medical History: Diagnosis Date Anemia Arthritis Arthropathy osteo. back and knees see Dr. Norton CAD (coronary artery disease) Community acquired pneumonia 2017 [facility] hospitalized with double pneumonia Congestive heart failure Coronary artery disease Diabetes mellitus type 1 teens dx when he was 13. Insulin since he was dx. Insulin pump currently with dexacom. Vashti Lizama NP is credit products officer. DM (diabetes mellitus) TYPE 1 DVT (deep venous thrombosis) 2017 [facility]. ESRD on peritoneal dialysis Gout History of blood transfusion 2017 during admission for [place] HLD (hyperlipidemia) HTN (hypertension) Hypercholesteremia 5 years on med Hypertension 30's on medications. Kidney disease Myocardial infarction 2017 [facility]. Stent x1 placed. Neuropathy feet Obstructive sleep [...] file Gets together: Not on file Attends yazdanism service: Not on file Active member of [...] 07/02/2020: Committee Discussion Details: Pt brought to [facility] to discuss his cardiac workup. Team [...] 12 mmHg, aortic valve area of 2.0 cm , and an NSDI of 0.48. Stress test [...] is the impression of this social media campaign manager that Juvenal Daigle has several positive [...] advised of safety concerns regarding immunosuppressants. Plan: agriculture worker to provide supportive services as needed. Patient appears to be a reasonable candidate for transplant from a psychosocial perspective. -Post transplant arrangement forms are needed prior to being listed. Psychiatric Consult Recommended: No Transplant Mortuary Beautician: Radha Roper LCSW RD:05/14/2020 BMI= 40.0, Class [...] 78 02/10/2023 11:24 AM CDT Temperature 36 C (96.8 F) 02/10/2023 11:24 AM CDT Respiratory Rate 10 02/10/2023 11:24 AM CDT Oxygen Saturation 99% 02/10/2023 11:24 AM CDT Inhaled Oxygen Concentration - - Weight 119.3 kg (263 lb) 02/10/2023 11:24 AM CDT Height 177.8 cm (5' 10 ) 06/29/2022 6:00 PM ALTERATIONS WORKROOM CLERK Body Mass Index 37.74 06/29/2022 6:00 PM ALTERATIONS WORKROOM CLERK Plan of Treatment Health Maintenance Due Date Last Done Comments DIABETES ANNUAL FOOT EXAM 1986 DIABETES MICROALBUMIN ANNUAL SCREEN 1986 LDL CHOLESTEROL ANNUAL 1986 HEPATITIS B VACCINES (1 of 3 - 19+ 3-dose series) 1987 FIT-DNA Q 3 years 2013 FIT/FOBT Q 1 year 2013 Flex Sig/CT Colonography Q 5 years 2013 ZOSTER VACCINE (1 of 2) 2018 DIABETES HBA1C Q 6 MONTHS 02/20/20232022, 06/05/2022, 06/04/2022, Additional history exists DIABETES ANNUAL RETINAL EXAM 11/18/2023, 09/07/2022, 09/07/2022, Additional history exists INFLUENZA VACCINE (#1) 2024 2, 06/04/2022, 06/08/2021, Additional history exists COLORECTAL SCREENING 03/08/2029 03/08/2019 Colorectal Cancer Screening 03/08/2029 DTAP/TDAP/TD VACCINES (2 - T d or Tdap) 10/21/2029 10/22/2019 Insurance [facility] [id number] [facility] MCR Advance Directives For more information, please contact: [phone] * Full Code (Latest Code Status on File) Date Activated Date Inactivated Comments 06/29/2022 2:49 PM 07/08/2022 4:30 PM Care Teams Case Supervisor Relationship Specialty Start Date End Date Aditya Castro MD PCP - General Student in an Organized Health Care Education/Training Program 09/11/18
--- OUTSIDE RECORDS SUMMARY | 2024-10-16 15:33 | XMS_ITS | Continuity of Care Document ---
Author Organization [facility] Address [address] [place] [address] [place] [address] Phone Care Team Providers Care Permastone Applicator Name Role Phone Carlos Garcia Unavailable Unavailable Advance Directives Directive Yes / No Effective Date File Name No Information Encounters Encounter Description Practice Location Reason(s) For Visit Diagnoses Date Provider Providers Copied on Encounter [facility], [id number] [place] [address] [address], [place], [place], [id number], [place] tel:[phone] [facility] No Information Radha Gonzalez. [address] [place], [place], [facility], [place]. tel:[phone] Referring Provider: Yannick Remy, [facility] [address], [place], [place], [facility]. tel:[phone] Family History Family Member Type Diagnosis Age At Onset No Information Payers Payer name Insurance type Covered democrat ID Authoriza tion(s) Medicaid [facility] [id number] Social History Type Description Quantity Date Captured [...]
--- OUTSIDE RECORDS SUMMARY | 2024-10-16 15:33 | XMS_ITS ---
Author Organization [facility] Address [address] [place] [address] Care Team Providers Care Compensation And Benefits Advisor Name Role Phone Aditya Castro MD Primary Care Provider [phone] Aolndra Lambert RN Unavailable [phone] Shannon Brock MD, [place] [facility]. Unavailable [phone] Leandro Reyes MD Unavailable [phone] Transplant Episode Kidney Candidate [facility] ([place], [place]) [facility] Evaluation began on 05/10/2024 Marked as Active on 05/10/2024 Reason: Evaluation - Standard Kidney CoordinatorAlondra Lambert RN Fax: N/A Email: N/A Scores Score Value Updated Exceptions/Reas ons CPRA Not available EPTS (Calc) 78 10/16/2024 Care Team Name Role Phone Fax Email Alondra Lambert RN Kidney Coordinator [phone] N/A N/A Melany Kelly Primary Catalytic Converter Operator Helper N/A N/A N/A Chris Richard Head Bucker N/A N/A N/A Events Pre-Transplant Referred: 03/06/2024 Evaluation began: 05/10/2024 Dialysis History Dialysis History Start End Type Comments Center 10/16/2019 Peritoneal [facility] Information Center Phone Fax Address [facility] [phone] [facility] [address]
--- OUTSIDE RECORDS SUMMARY | 2024-10-16 15:34 | XMS_ITS | Clinical Summary ---
Author Organization [facility] Address [address] [place] [address] Phone Care Team Providers Care Physical Anthropologist Name Role Phone Unavailable Primary Care Provider [...] daily 0 12/27/2017 Active Cholecalciferol (VITAMIN D3) 11629 units capsule 1 tab by mouth once [...]
--- OUTSIDE RECORDS SUMMARY | 2024-10-16 15:34 | XMS_ITS | Encounter Summary ---
Author Organization [facility] Address [address], [place] [address] Phone Care Team Providers Care Chalker Soles Name Role Phone Unavailable Primary Care Provider Unavailabl e Reason for Visit * Reason Comments Med Refill Encounter Details Date Type Department Care Team (Late st Contact Info) Description 02/13/2019 Refill [facility] [address] [address] Leandro Reyes MD [address] [address] Social History Tobacco Use Types [...]
--- OUTSIDE RECORDS SUMMARY | 2024-10-16 15:34 | XMS_ITS | Encounter Summary ---
Author Organization [facility] Address [address] [place] [address] Phone Care Team Providers Care On Site Services Specialist Name Role Phone Unavailable Primary Care Provider Unavailabl e Reason for Visit * Reason Comments Med Refill Encounter Details Date Type Department Care Team (Late st Contact Info) Description 01/25/2019 Refill [facility] [address] [facility] 1 [place] [address] Leandro Reyes MD [address] [address] Social History Tobacco Use Types [...]
--- OUTSIDE RECORDS SUMMARY | 2024-10-16 15:34 | XMS_ITS | Clinical Summary ---
Author Organization [facility] Address [address] [place] [address] Care Team Providers Care Rn Field Case Manager Name Role Phone Aditya Castro Primary Care Provider Unavailab le Source Comments [facility],non-owned Affiliates and Associated Physician Practices is amultiple site organization consisting of ambulatory clinics and hospital sitesin [place], [place], [place] and [place]. This disclosure is being madepursuant to the Care Everywhere program and may not contain all information available regarding this patient. Last updated 18.[facility] Allergies Active Allergy Reactions Criticality Noted [...] needed 01/25/2019 Active vitamin D, ergocalciferol, (DRISDOL) 52146 units capsule Take 50,000 Units by mouth [...] fluticasone propionate (FLONASE) 50 MCG/ACT nasal spray [place] 1 spray into each nostril once daily 04/24/2019 Active epoetin (PROCRIT) 44746 UNIT/ML injection Inject subcutaneously every 14 days [...] the original note were not included. Juvenal Garvin 1970 Referring Rpg Developer: Leandro Reyes Dialysis Info: Type: PD Time: 160 days (11/05/2019) Blood Type: A Body mass index is 37.8 kg/m . ALERTS Clinical Athletic Instructor: Vashti Lizama NP Past Medical History: Diagnosis Date Anemia Arthritis Arthropathy osteo. back and knees see Dr. Cierra ELIAS (coronary artery disease) Community acquired pneumonia 2017 [facility] hospitalized with double pneumonia Congestive heart failure Coronary artery disease Diabetes mellitus type 1 teens dx when he was 13. Insulin since he was dx. Insulin pump currently with dexacom. Vashti Lizama PET CARE TECHNICIAN is rating clerk. DM (diabetes mellitus) TYPE 1 DVT (deep venous thrombosis) 2017 [facility]. ESRD on peritoneal dialysis Gout History of blood transfusion 2017 during admission for IN HLD (hyperlipidemia) HTN (hypertension) Hypercholesteremia 5 years on med Hypertension 30's on medications. Kidney disease Myocardial infarction 2017 [facility]. Stent x1 placed. Neuropathy feet Obstructive [...] file Gets together: Not on file Attends roman catholic service: Not on file Active member of [...] stress. Stress ejection fraction estimated at 83%. [facility]: 08/26/2019 [place] exercise Stress: 04/16/2019 04/17/2017 CXR: [...] is the impression of this social science manager that Juvenal Garvin has several positive factors for Kidney transplant [...] advised of safety concerns regarding immunosuppressants. Plan: billet worker to provide supportive services as needed. Patient appears to be a reasonable candidate for transplant from a psychosocial perspective. -Post transplant arrangement forms are needed prior to being listed. Psychiatric Consult Recommended: No Transplant Rn Night: Radha Roper LCSW RD:05/14/2020 BMI= 40.0, Class [...] with RD contact. Items Still Pending: education Coronary artery disease [...] Comments Blood Pressure 140/60 07/13/2020 1:30 PM BUSINESS LAW PROFESSOR Pulse 65 07/13/2020 1:30 PM BUSINESS LAW PROFESSOR Temperature 36.1 C (97 F) 07/13/2020 1:30 PM BUSINESS LAW PROFESSOR Respiratory Rate 20 07/13/2020 1:30 PM BUSINESS LAW PROFESSOR Oxygen Saturation 95% 07/13/2020 1:30 PM BUSINESS LAW PROFESSOR Inhaled Oxygen Concentration - - Weight 134.3 kg (296 lb) 07/13/2020 1:30 PM BUSINESS LAW PROFESSOR Height 176.5 cm (5' 9.5 ) 07/13/2020 1:30 PM BUSINESS LAW PROFESSOR Body Mass Index 43.08 07/13/2020 1:30 PM BUSINESS LAW PROFESSOR Plan of Treatment Health Maintenance Due Date Last Done Comments COLOGUARD (AGES 45-75) - COLON CA SCREENING [address] COLONOGRAPHY - COLON CA SCREENING 1968 FIT - COLON CA SCREENING 1968 FLEX SIG - COLON CA SCREENING 1970 MEDICARE AWV 12 MONTHS 1968 DTAP/TDAP/TD VACCINES (1 - Tdap) 1987 HEPATITIS B VACCINE (1 of 3 - 19+ 3-dose series) 1987 PNEUMOCOCCAL VACCINE 50+ (1 of 2 - PCV) 1987 PNEUMOCOCCAL VACCINE (1 of 2 - PCV) 1987 ZOSTER VACCINE (1 of 2) 2018 SCREENING FOR DIABETES 05/14/2023 , 05/14/2020, 04/26/2019, Additional history exists COVID-19 VACCINE (2023- season) 2024 INFLUENZA VACCINE (#1) 2024 05/16/2019, 2015 DEPRESSION SCREENING 08/21/2024 MEDICARE AWV CALENDAR YEAR 2024 COLONOSCOPY - COLON CA SCREENING 03/08/2029 03/08/2019 [...] Y ORDERABLES [facility] [address] [place] [address] [phone] * (ABNORMAL) COMPREHENSIVE METABOLIC PANEL (05/14/2020 10:18 AM [facility]) BUN 65(H) 7 - 26 mg/dL 05/14/2020 11:41 AM [facility] Creatinine 5.6(H) 0.6 - 1.2 mg/dL 05/14/2020 11:41 AM [facility] Sodium 142 136 - 145 mmol/L 05/14/2020 11:41 AM [facility] Potassium 3.7 3.5 - 4.5 mmol/L 05/14/2020 11:41 AM [facility] Chloride 101 98 - 107 mmol/L 05/14/2020 11:41 AM [facility] CO2 28 22 - 29 mmol/L 05/14/2020 11:41 AM [facility] Glucose 162(H) 70 - 115 mg/dL 05/14/2020 11:41 AM [facility] Calcium 9.0 8.4 - 10.2 mg/dL 05/14/2020 11:41 AM [facility] Protein Total 6.9 6.0 - 8.3 g/dL 05/14/2020 11:41 AM [facility] Albumin 3.7 3.4 - 5.0 g/dL 05/14/2020 11:41 AM [facility] Bilirubin Total 0.7 0.2 - 1.2 mg/dL 05/14/2020 11:41 AM [facility] Alkaline Phosphatase 140 40 - 150 Units/L 05/14/2020 11:41 AM [facility] ALT 43 0 - 55 Units/L 05/14/2020 11:41 AM [facility] AST 29 5 - 34 Units/L 05/14/2020 11:41 AM [facility] Anion Gap 17 8 - 18 05/14/2020 11:41 AM [facility] BUN/Creatinine Ratio 12 7 - 23 05/14/2020 11:41 AM [facility] Osmolality Calculated 316(H) 270 - 300 mOsm/kg 05/14/2020 11:41 AM [facility] Albumin/Globulin Ratio 1.2 1.1 - 2.3 05/14/2020 11:41 AM CDT [facility] eGFR 11(L) >60 mL/min/1.7 3 m2 05/14/2020 11:41 AM CDT [facility] Blood BLOOD SPECIMEN / Unknown Lab Venipuncture / Unknown 05/14/2020 10:18 AM CDT 05/14/2020 10:55 AM CDT Glenny Martin MD LAB - CHEMISTRY ORDERABLES [facility] [address] [place] [address], [place] [phone] * HEPATITIS C ANTIBODY (05/14/2020 10:18 AM CDT) [facility] Hepatitis C Antibody Non-react bianca Non-reac tive 05/14/2020 11:49 AM CDT [facility] Comment:Hepatitis C Antibody screen indicates no [...] Glenny Martin MD LAB - CHEMISTRY ORDERABLES [address] [address], [place] [phone] from Last 3 Months or Most Recently Relevant to Health Maintenance Insurance Payer Benefit Plan / Group Subscriber ID Effective Dates Phone Address Type AETNA MEDICARE ADV AETNA MEDICARE ADV HMO/PPO/PFFS [id number] Effective for all dates [address] [place] [address] Medicare-[facility] MEDICAID [facility] MEDICAID [facility] Effective for all dates [address] [facility] [address] [place] [address] Medicaid AETNA MEDICARE ADV AETNA MEDICARE ADV HMO/PPO/PFFS [id number] Effective for all dates [address] [place] [address] Medicare-Mt naged Care MEDICAID [facility] MEDICAID [facility] Effective for all dates [address] [place] [address] Medicaid AETNA MEDICARE ADV AETNA MEDICARE ADV HMO/PPO/PFFS [id number] Effective for all dates [address] [place] [address] Medicare-Ma naged Care MEDICAID [facility] MEDICAID [facility] Effective for all dates [address] [place] [address] Medicaid MEDICARE [place] MEDICARE PART B [id number] 08/21/2019-Pres ent [address] [address] [place] [address] Medicare MEDICAID - OUT OF [facility] MEDICAID - [place] PUBLIC AID [id number] 08/21/2019-Pres ent [address] [address] [place] [address] Medicaid MEDICARE MEDICARE PART A AND B [id number] 08/21/2019-Pres ent [address] [place] [address] Medicare MEDICAID - [place] - [place] [id number] Effective for all dates [address] [address] [place] [address] Medicaid [place] Advance Directives * Full Code (Latest Code Status on File) Date Activated Date Inactivated Comments 11/22/2018 9:24 AM 11/23/2018 7:55 PM Care Teams Rn Field Case Manager Relationship Specialty Start Date End Date Aditya Castro Update Information PCP - General 03/06/19
--- OUTSIDE RECORDS SUMMARY | 2024-10-16 15:34 | XMS_ITS | Referral Summary ---
Author Organization [facility] Address [address] [place] [address] Care Team Providers Care Ethyl Blender Name Role Phone Aditya Castro MD Primary Care Provider [phone] Alondra Lambert RN Unavailable [phone] Shannon Brock MD, Hamlet Gordon Unavailable [phone] Leandro Reyes MD Unavailable [phone] Encounters Date Type Department Care Team Description 09/12/2024 Orders Only [facility] Medical [facility] Cardiology [address] [place] [id number] Lalit Machuca MD 08/06/2024 Documentation [facility] Transplant Kidney [address] [facility] [address] Mailstop [phone] [place] [address] Alondra Lambert RN 07/30/2024 Telephone [facility] Transplant Kidney [address] [facility] [address] Mailstop [phone] [place] [address] Alondra Lambert RN 07/29/2024 10:55 AM SECRETARIAL STENOGRAPHER - 07/29/2024 11:59 PM SECRETARIAL STENOGRAPHER Hospital Encounter [facility] ([facility]) [address] [place] [address] End stage renal disease (CMS/HCC) (HCC) Discharge Disposition: Discharge to home or self care 07/29/2024 10:53 AM SECRETARIAL STENOGRAPHER - 07/29/2024 11:59 PM SECRETARIAL STENOGRAPHER Hospital Encounter [facility] ([facility]) [address] [place] [address] End stage renal disease (CMS/HCC) (HCC) Discharge Disposition: Discharge to home or self care 07/29/2024 1:15 PM SECRETARIAL STENOGRAPHER Lab [facility] ([facility]) [address] [place] [phone] End stage renal disease (CMS/HCC) (HCC); ESRD (end stage renal disease) (CMS/HCC) (HCC) 07/29/2024 Telephone [facility] Transplant Kidney [address] [facility] [address] Mailstop [phone] [place] [address] Alondra Lambert RN 07/29/2024 10:58 AM SECRETARIAL STENOGRAPHER - 07/29/2024 11:59 PM SECRETARIAL STENOGRAPHER Hospital Encounter [facility] ([facility]) [address] [place] [address] End stage renal disease ([facility]/HCC) ([facility]) Discharge Disposition: Discharge to home or self care 07/29/2024 9:00 AM SECRETARIAL STENOGRAPHER Social Work [facility] Transplant Center [address] [facility], 8th [address], [place] [address] 07/29/2024 11:02 AM SECRETARIAL STENOGRAPHER - 07/29/2024 11:59 PM SECRETARIAL STENOGRAPHER Hospital Encounter [facility] Pulmonary Rehabilitiation Program [address] [facility] [address] [place] [address] Discharge Disposition: Discharge to home or self care 07/29/2024 1:00 PM SECRETARIAL STENOGRAPHER Office Visit [facility] Nephrology [address] [facility] 5th [place] [address] [place] [address] Radha Bartholomew MD Pre-transplant evaluation for kidney transplant (Primary Dx); End stage renal disease (CMS/HCC) ([facility]); Status post coronary artery bypass grafting; Status post aortic valve replacement; Type 1 diabetes mellitus with chronic kidney disease on chronic dialysis ([facility]) ([facility]); CAD in [place] artery; Paroxysmal atrial fibrillation ([facility]) ([facility]) 07/26/2024 Telephone [facility] Transplant Kidney [address] [facility] [address] Mailstop [phone] [place] [address] Elsie Cornejo 07/26/2024 Orders Only [facility] Transplant Kidney [address] [facility] [address] Mailstop [phone] [place] [address] Alondra Lambert RN ESRD (end stage renal disease) ([facility]) ([facility]) (Primary Dx) 07/26/2024 Telephone [facility] Transplant Kidney [address] [facility] [address] Mailstop [phone] [place] [address] Alondra Lambert RN 07/22/2024 Telephone [facility] Transplant Kidney [address] [facility] [address] Mailstop [phone] [place] [address] Chris Richard from Last 3 Months Allergies Active Allergy [...] PUMP: Continue Omnipod 5 insulin pump with [employer] G6 CGM at home settings: TIME BASAL [...] 1 tablet (25 mcg total) by mouth paleology teacher before breakfast 30 tablet 1 11/04/19 24 [...] mg SL tablet 12/28/19 18 Active peg 070-xnopenbhspqx-gq ycerin (ARTIFICAL TEARS) 1-0.2-0.2 % ophthalmic solution 1 drop 4 (four) times a day 07/07/20 22 Active potassium chloride ER 20 mEq CR tablet Active Active Problems Problem Noted Date Diagnosed Date End stage renal disease ([facility]) 07/29/2024 Nonrheumatic aortic valve stenosis 11/22/2023 Status post aortic valve replacement 11/22/2023 Status post coronary artery bypass grafting 10/2023 CAD in [place] artery 10/13/2023 Anemia 06/22/2022 Assessment & Plan (06/29/2022 10:12 AM SECRETARIAL STENOGRAPHER): Stable, likely 2/2 anemia from ESRD, no [...] trend Hb. ESRD (end stage renal disease) ([facility]) 022 Assessment & Plan (06/29/2022 10:12 AM SECRETARIAL STENOGRAPHER): - Renal consulted, s/p CRRT in the ICU now back on PD. Tolerated well and nephrology following - Trialysis catheter removed - Continue vitamins for renal bone mineral disease. Assessment & Plan (06/28/2022 3:29 PM SECRETARIAL STENOGRAPHER): - Renal consulted, s/p CRRT in the [...] 06/22/2022 Assessment & Plan (06/29/2022 10:12 AM SECRETARIAL STENOGRAPHER): C/b cardiogenic shock requiring impella in the setting of cath and AHRF 2/2 pulmonary edema, now resolved. TTE demonstrating recovered EF 65% with grade I diastolic dysfunction. - metop as above - continue low dose losartan 12.5mg daily, ok per nephro. Tolerating well - volume management per PD Assessment & Plan (06/28/2022 3:29 PM SECRETARIAL STENOGRAPHER): C/b cardiogenic shock requiring impella in the [...] 06/22/2022 Assessment & Plan (06/29/2022 10:12 AM SECRETARIAL STENOGRAPHER): Converted to NSR overnight on 06/24. CHADsVASc of 4 not on anticoagulation prior to admission. - cardiology consulted - recommended ongoing rate control - holding off on a/c with high risk for bleeding while on DAPT - reduced metop to 25mg BID in the setting of hypotension, HR 70s NSR Assessment & Plan (06/28/2022 3:30 PM SECRETARIAL STENOGRAPHER): Converted to NSR overnight on 06/24. CHADsVASc [...] AC. NSTEMI (non-ST elevated myocardial infarction) ( [facility]) 06/22/2022 Assessment & Plan (06/29/2022 10:11 AM SECRETARIAL STENOGRAPHER): With recurrent chest pain post-cath. He has [...] today Assessment & Plan (06/28/2022 3:30 PM SECRETARIAL STENOGRAPHER): With recurrent chest pain post-cath. He has [...] 06/22/2022 Assessment & Plan (06/29/2022 10:11 AM SECRETARIAL STENOGRAPHER): Secondary to NSTEMI, s/p Impella since removed on 06/10. Resolved. Assessment & Plan (06/23/2022 4:55 PM CDT): Secondary to NSTEMI, s/p Impella since removed on 06/10. Resolved. Assessment & Plan (06/22/2022 8:22 PM CDT): -Secondary to NSTEMI, s/p Impella since removed on 06/10. Acute hypoxemic respiratory failure 06/09/2022 Assessment & Plan (06/29/2022 10:12 AM SECRETARIAL STENOGRAPHER): Secondary to ACS and flash pulmonary edema, [...] (06/10/2022): Added automatically from request for surgery [id number] Abnormal cardiovascular stress test 12/29/2020 Overview (12/29/2020): Added automatically from request for surgery [id number] 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n ative artery of [place] heart with stable angina pectoris ([facility]) 05/23/2017 History of coronary artery stent placement [...] 01/18/2013 Assessment & Plan (06/29/2022 10:12 AM SECRETARIAL STENOGRAPHER): A1c well controlled on admission. He uses [...] session Assessment & Plan (06/28/2022 3:28 PM SECRETARIAL STENOGRAPHER): A1c well controlled on admission. He uses [...] episodes. -Continue insulin regimen per endocrine. Immunizations Immunization Administration Dates Next Due Influenza, Quadrivalent, Spl [...] materials from doctor or pharmacy Never 12/01/2023 [facility] Utilities Answer Date Recorded In the past 12 months has th e [employer], [employer], or water [employer] threatened to shut off services in your home? No 08/01/2024 Social Connection and Isolation Panel [NHANES] A nswer Date Recorded In a typical week, how many times do you talk on the phone with family, friends, or neighbors? Twice a week 08/01/2024 How often do you get together with friends or re latives? Once a week 08/01/2024 How often do you attend buddhism or church serv ices? Never 08/01/2024 Do you belong to any clubs o r organizations such as buddhism groups, unions, fraternal or athletic groups, or [...] any time in the past 12 [facility], were you homeless or living in [...] on file Legal Sex Male 3:42 AM SECRETARIAL STENOGRAPHER Gender Identity Not on file Sexual Orientation Not on file Last Filed Vital Signs Vital Sign Reading Time Taken Comments Blood Pressure 122/75 07/29/2024 1:00 PM SECRETARIAL STENOGRAPHER Pulse 116 07/29/2024 1:00 PM SECRETARIAL STENOGRAPHER Temperature 36.8 C (98.2 F) 07/29/2024 1:00 PM SECRETARIAL STENOGRAPHER Respiratory Rate 16 12/01/2023 11:1 3 AM CDT Oxygen Saturation 96% 12/01/2023 11: 13 AM CDT Inhaled Oxygen Concentration - - Weight 121.2 kg (267 lb 1.6 oz) 07/29/2024 1:00 PM SECRETARIAL STENOGRAPHER Height 177.8 cm (5' 10 ) 07/29/2024 1:00 PM SECRETARIAL STENOGRAPHER Body Mass Index 38.32 07/29/2024 1:00 PM SECRETARIAL STENOGRAPHER Plan of Treatment Not on file Medical Devices Implanted Type Area [place] Worker Device Identifier Shelf Expiration Date Model / Serial / Lot Kyle Vascular Device Clsr Perclose Prostyle Sut-Mediatd Closure-Repair Sys 04101-45 - [id number] Implanted:Qty: 1 on 06/10/2022 by Champ Osborne MD PhD at [facility] Other - see comments Right: Femoral [employer] 01/19/2024 [id number] / / [id number] Superior [employer] Mary Synergy Xd Monorail 2.5mm 48mm 144cm Delivery System 1 Access [id number] - [id number] Implanted:Qty: 1 on 06/07/2022 by Champ Osborne MD PhD at [facility] Stent Superior [employer] Mary 10/27/2023 [id number] / / [id number] Superior [employer] Mary Synergy Xd Monorail 3mm 24mm 144cm Delivery System 1 Access Port [id number] - [id number] Implanted:Qty: 1 on 06/07/2022 by Champ Osborne MD PhD at [facility] Stent [employer] Mary 07/28/2023 [id number] / / [id number] Superior [employer] Mary Synergy Xd Monorail 2.5mm 12mm 144cm Delivery System 1 Access [id number] - [id number] - [id number] Implanted:Qty: 1 on 06/07/2022 by Champ Osborne MD PhD at [facility] Stent Superior [employer] Mary 05/03/2023 [id number] / [id number] / [id number] Daig Mary [id number] Device Closure Angio-Seal Vip Bondek-Plus Polyglyd L70 Cm Od6 Fr Odsec.035 In Vascular - [id number] Implanted:Qty: 1 on 01/21/2021 by Hamlet Ortega Jr., MD at [facility] Left: Groin [employer] Mary [id number] / / Kyle Vascular Device Clsr Perclose Prostyle Sut-Mediatd Closure-Repair Sys 19827-55 [id number] Implanted:Qty: 1 on 06/07/2022 by Champ Osborne MD PhD at [facility] Kyle Vascular 01/19/2024 [id number] / / [id number] Kyle V[employer] Device Clsr Perclose Prostyle Sut-Mediatd Closure-Repair Sys 70209-32 [id number] Implanted:Qty: 1 on 06/07/2022 by Champ Osborne MD PhD at [facility] Kyle Vascular 11/19/2023 [id number] / / [id number] [employer] Access Systems Power-Trialysis 13fr 30cm 3 Lumen Kink Resistance Symmetric Tip [id number] - [id number] Implanted:Qty: 1 on 06/07/2022 by Champ Osborne MD PhD at [facility] Right: Jugular [place] 07/20/2024 [id number] / / [id number] [employer] Inc Impella Cp Percutaneous Left Ventricular Assist Device 9252-1096 - [id number] Implanted:Qty: 1 on 06/07/2022 by Champ Osborne MD PhD at [facility] Left: Ventricle [employer] Inc [id number] / / Bard Access Systems Power-Trialysis 13fr 20cm 3 Lumen Short Term Dialysis Straight [id number] - [id number] Implanted:Qty: 1 on 06/18/[address] [facility] Ramirez Plain 07/20/2024 [id number] / / [id number] Rl Biomet Inc Screw Bone Slf Drl Full Thread Locking 3.5x14mm Ti 100.035.14 - [id number] Implanted:Qty: 6 on 10/17/2023 by Lorne Mcnulty MD at [facility] N/A: Sternum Rl [employer] Inc 100.035.1 4 / / Rl Biomet Inc Plate Bone Low Profile 6 Hole H Shape Sternum Ti 115.102.06 - [id number] Implanted:Qty: 2 on 10/17/2023 by Lorne cMnulty MD at [facility] N/A: Sternum Rl [employer] Inc 115.102.0 6 / / Rl [employer] Inc Plate Bone Low Profile 6 Hole O Shape Sternum Ti 115.104.06 - [id number] Implanted:Qty: 1 on 10/17/2023 by Lorne Mcnulty MD at [facility] N/A: Sternum Rl [employer] Inc 115.104.0 6 / / On-X Intrnl Valve Coronary Aortic Mechanical On X [facility] - [id number] - [id number] Implanted:Qty: 1 on 10/17/2023 by Lorne Mcnulty MD at [facility] N/A: Heart On-X Intrnl 01/22/2028 ONXANE- / [id number] / Rl [employer] Inc Screw Bone Slf Drl Full Thread Locking 3.5x18mm Ti 100.035.18 - [id number] Implanted:Qty: 12 on 10/17/2023 by Lorne Mcnulty MD at [facility] N/A: Sternum Rl [employer] Inc 100.035.1 8 / / Explanted Type Area [place] Worker Device Identifier Shelf Expiration Date Model / Serial / Lot Bard Peripheral Vascular Bard .25x.25in [place] Thk1.65mm Square [employer] Ptfe [id number] - [id number] Explanted:Qty: 1 on 10/17/2023 by Lorne Mcnulty MD at [facility] N/A: Heart Bard Peripheral Vascular 05/18/2026 [id number] / / Procedures Procedure Name Priority Date/Time Associated Diagnosis Comments CARDIOLOGY DOCUMENT SCAN Routine 09/08/2024 11:26 AM SECRETARIAL STENOGRAPHER CARDIOLOGY DOCUMENT SCAN Routine 09/07/2024 11:24 AM SECRETARIAL STENOGRAPHER CARDIOLOGY DOCUMENT SCAN Routine 09/05/2024 11:06 AM SECRETARIAL STENOGRAPHER HLA SOLID ORGAN TYPING REPORT 08/02/2024 9:04 AM SECRETARIAL STENOGRAPHER SIX MINUTE WALK Routine 07/29/2024 2:46 PM SECRETARIAL STENOGRAPHER End stage renal disease (CMS/HCC) (HCC) CT ABDOMEN PELVIS WO CONTRAST Schedule Routine, Read Routine (OP Routine) 07/29/2024 12:43 PM SECRETARIAL STENOGRAPHER End stage renal disease (CMS/HCC) (HCC) XR ORTHOPANTOGRAM/PANOR EX Schedule Routine, Read Routine (OP Routine) 07/29/2024 11:44 AM SECRETARIAL STENOGRAPHER End stage renal disease (CMS/HCC) (HCC) TYPE AND SCREEN Routine 07/29/2024 11:23 AM SECRETARIAL STENOGRAPHER End stage renal disease (CMS/HCC) (HCC) ECG 12-LEAD Routine 07/29/2024 11:14 AM SECRETARIAL STENOGRAPHER End stage renal disease (CMS/HCC) (HCC) ABO/RH Routine 07/29/2024 11:13 AM SECRETARIAL STENOGRAPHER EGFR Routine 07/29/2024 11:01 AM SECRETARIAL STENOGRAPHER End stage renal disease (CMS/HCC) (HCC) DIFFERENTIAL AUTO Routine 07/29/2024 11: 01 AM SECRETARIAL STENOGRAPHER End stage renal disease (CMS/HCC) (HCC) CBC WITH AUTO DIFFERENTIAL Routine 07/29/2024 11:01 AM SECRETARIAL STENOGRAPHER End stage renal disease (CMS/HCC) (HCC) COMPREHENSIVE METABOLIC PANEL Routine 07/29/2024 11:01 AM SECRETARIAL STENOGRAPHER End stage renal disease (CMS/HCC) (HCC) CREATININE, URINE, RANDOM Routine 07/29/2024 11:01 AM SECRETARIAL STENOGRAPHER End stage renal disease (CMS/HCC) (HCC) FERRITIN Routine 07/29/2024 11:01 AM SECRETARIAL STENOGRAPHER End stage renal disease (CMS/HCC) (HCC) GAMMA GT Routine 07/29/2024 11:01 AM SECRETARIAL STENOGRAPHER End stage renal disease (CMS/HCC) (HCC) HEMOGLOBIN A1C Routine 07/29/2024 11:01 AM SECRETARIAL STENOGRAPHER End stage renal disease (CMS/HCC) (HCC) IRON PROFILE W/ IBC Routine 07/29/2024 1 1:01 AM SECRETARIAL STENOGRAPHER End stage renal disease (CMS/HCC) (HCC) LIPID PANEL Routine 07/29/2024 11:01 AM SECRETARIAL STENOGRAPHER End stage renal disease (CMS/HCC) (HCC) PTH Routine 07/29/2024 11:01 AM SECRETARIAL STENOGRAPHER End stage renal disease (CMS/HCC) (HCC) APTT Routine 07/29/2024 11:01 AM SECRETARIAL STENOGRAPHER End stage renal disease (CMS/HCC) (HCC) PHOSPHORUS Routine 07/29/2024 11:01 AM SECRETARIAL STENOGRAPHER End stage renal disease (CMS/HCC) (HCC) PROTEIN, URINE, RANDOM Routine 07/29/2024 11:01 AM SECRETARIAL STENOGRAPHER End stage renal disease (CMS/HCC) (HCC) PROTIME-INR Routine 07/29/2024 11:01 AM SECRETARIAL STENOGRAPHER End stage renal disease (CMS/HCC) (HCC) URIC ACID Routine 07/29/2024 11:01 AM SECRETARIAL STENOGRAPHER End stage renal disease (CMS/HCC) (HCC) PSA SCREEN Routine 07/29/2024 11:01 AM SECRETARIAL STENOGRAPHER End stage renal disease (CMS/HCC) (HCC) LR HLA TYPING (CLASS I AND CLASS II) Routine 07/29/2024 11:01 AM SECRETARIAL STENOGRAPHER End stage renal disease (CMS/HCC) (HCC) HLA CLASS I DNA (ABC) RECIPIENT Routine 07/29/2024 11:01 AM SECRETARIAL STENOGRAPHER End stage renal disease (CMS/HCC) (HCC) HLA CLASS II DNA (DR, DQ, DP) RECIPIENT Routine 07/29/2024 11:01 AM SECRETARIAL STENOGRAPHER End stage renal disease (CMS/HCC) (HCC) HLA ANTIBODY SCREEN - SAB (CLASS I AND CLASS II) Routine 07/29/2024 11:01 AM SECRETARIAL STENOGRAPHER End stage renal disease (CMS/HCC) (HCC) HLA ANTIBODY SCREEN BY SINGLE ANTIGEN Routine 07/29/2024 11:01 AM SECRETARIAL STENOGRAPHER End stage renal disease (CMS/HCC) (HCC) CMV, IGG Routine 07/29/2024 11:01 AM SECRETARIAL STENOGRAPHER End stage renal disease (CMS/HCC) (HCC) MADIHA-MORRIS VIRUS VCA ANTIBODY PANEL Routine 07/29/2024 11:01 AM SECRETARIAL STENOGRAPHER End stage renal disease (CMS/HCC) (HCC) HIV 1/2 ANTIBODY PLUS P24 ANTIGEN Routine 07/29/2024 11:01 AM SECRETARIAL STENOGRAPHER End stage renal disease (CMS/HCC) (HCC) HSV 1 ANTIBODY, IGG Routine 07/29/2024 1 1:01 AM SECRETARIAL STENOGRAPHER End stage renal disease (CMS/HCC) (HCC) HSV 2 ANTIBODY, IGG Routine 07/29/2024 1 1:01 AM SECRETARIAL STENOGRAPHER End stage renal disease (CMS/HCC) (HCC) HEPATITIS B CORE ANTIBODY, TOTAL Routine 07/29/2024 11:01 AM SECRETARIAL STENOGRAPHER End stage renal disease (CMS/HCC) (HCC) HEPATITIS B SURFACE ANTIBODY (IMMUNE STATUS) Routine 07/29/2024 11:01 AM SECRETARIAL STENOGRAPHER End stage renal disease (CMS/HCC) (HCC) HEPATITIS B SURFACE ANTIGEN Routine 07/29/2024 11:01 AM SECRETARIAL STENOGRAPHER End stage renal disease (CMS/HCC) (HCC) HEPATITIS C ANTIBODY Routine 07/29/2024 11:01 AM SECRETARIAL STENOGRAPHER End stage renal disease (CMS/HCC) (HCC) RPR Routine 07/29/2024 11:01 AM SECRETARIAL STENOGRAPHER End stage renal disease (CMS/HCC) (HCC) VARICELLA ZOSTER ANTIBODY, IGG Routine 07/29/2024 11:01 AM SECRETARIAL STENOGRAPHER End stage renal disease (CMS/HCC) (HCC) URINALYSIS, MICROSCOPIC ONLY Routine 07/29/2024 10:53 AM SECRETARIAL STENOGRAPHER End stage renal disease (CMS/HCC) (HCC) OXALATE Routine 07/29/2024 10:53 AM SECRETARIAL STENOGRAPHER ESRD (end stage renal disease) (CMS/HCC) (HCC) URINALYSIS AND REFLEX TO MICROSCOPIC Routine 07/29/2024 10:53 AM SECRETARIAL STENOGRAPHER End stage renal disease (CMS/HCC) (HCC) TSH Routine 10/27/2023 2:30 AM SECRETARIAL STENOGRAPHER from Last 3 Months or Most Recently Relevant to Health Maintenance Results * Cardiology Document Scan (09/08/2024 11:26 AM SECRETARIAL STENOGRAPHER) Anatomical Region Laterality Modality Other Juan Christianson MD CV CARDIAC SERVICES PROCEDU RES Final Result * Cardiology Document Scan (09/07/2024 11:24 AM SECRETARIAL STENOGRAPHER) Anatomical Region Laterality Modality Other Juan Christianson MD CV CARDIAC SERVICES PROCEDU RES Final Result * Cardiology Document Scan (09/05/2024 11:06 AM SECRETARIAL STENOGRAPHER) Anatomical Region Laterality Modality Other Lalit Machuca MD CV CARDIAC SERVICES PROCEDURES F inal Result * HLA Solid Organ Typing Report (08/02/2024 9:04 AM SECRETARIAL STENOGRAPHER) Jossie King MD LAB GENETIC TESTIN G Final Result * Six Minute Walk - (07/29/2024 2:46 PM SECRETARIAL STENOGRAPHER) Anatomical Region Laterality Modality PFT Narrative 07/29/2024 3:52 PM SECRETARIAL STENOGRAPHER Table formatting from the original result was not included. Davey Pickard V., RATE AND COST ANALYST on 07/29/2024 2:45 PM Table formatting from the original note was not included. 6 MINUTE WALK RESULTS Name: Juvenal Daigle Michael Miller : 1970 DOS: 07/29/2024 Diagnosis: ESRD/KTE RATE AND COST ANALYST performed walk: Carmenza Pickard Rest: 1 min 0 LPM SPO2: 97 % HR: 117 CYRUS: 3 BP: 120/64 Walk: 1 min 0 LPM SPO2: 95 % HR: 103 Walk: 2 min 0 LPM SPO2: 95 % HR: 101 Walk: 3 min 0 LPM SPO2: 95 % HR: 115 CYRUS: 3 Walk: 4 min 0 LPM SPO2: 96 % HR: 117 Walk: 5 min 0 LPM SPO2: 91 % HR: 97 Walk: 6 min 0 LPM SPO2: 94 % HR: 111 CYRUS: 3 Post: 2 min 0 LPM SPO2: 96 % HR: 115 CYRUS: 0 BP: 126/76 Walking SpO2 ranged from: 91-96 Walking HR ranged from: 97-117 Number of feet walked: 691 Number of rest breaks: 2(total 50 sec) O2 Recommendation Restin LPM Midwalk: 0 LPM Exercise: 0 LPM Patient's current exercise program: Patient stated that he walks 10-15 minutes at least 2 times a week. Encouraged patient to exercise 30 minutes 5 times a week. Physician Interpretation: At rest breathing room air oxygen level is adequate, however oxygen level falls with exertion, but remains normoxemic. HR increases with exercise. Prescription: RA at rest and with exercise Jossie King MD RESPIRATORY CARE O TOMAS Final Result * CT Abdomen Pelvis WO Contrast (07/29/2024 12:43 PM SECRETARIAL STENOGRAPHER) Anatomical Region Laterality Modality Body N/A Computed Tomogra phy 07/29/2024 1:04 PM SECRETARIAL STENOGRAPHER Impressions 07/29/2024 1:04 PM SECRETARIAL STENOGRAPHER 1. Moderate discontinuous atherosclerotic calcifications involve the [...] Teresa Rivera M.D. Narrative 07/29/2024 1:04 PM SECRETARIAL STENOGRAPHER EXAMINATION: Computed tomography of the abdomen and [...] Degenerative changes in the lower lumbar spine. Procedure [...] * XR Orthopantogram Panorex (07/29/2024 11:44 AM SECRETARIAL STENOGRAPHER) Anatomical Region Laterality Modality Head and Neck N/A Panoramic X-Ray 07/29/2024 12:5 9 PM SECRETARIAL STENOGRAPHER Impressions 07/29/2024 12:59 PM SECRETARIAL STENOGRAPHER 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 Electronically signed by: Julio Pinedo M.D. Narrative 07/29/2024 12:59 PM SECRETARIAL STENOGRAPHER EXAMINATION: XR ORTHOPANTOGRAM/PANOREX HISTORY: Kidney Transplant Evaluation COMPARISON: None available FINDINGS: Comparison: Multiple dental extractions and restorations. There is an apparent dental caries involving the left maxillary 1st premolar, and caries versus extraction of the left maxillary canine. No large mandibular periapical abscess. Procedure Note Julio [...] * Type and screen (07/29/2024 11:23 AM SECRETARIAL STENOGRAPHER) Maribel, indirect Negative ABO Rh A Positive [facility] Blood 07/29/2024 11:2 3 AM SECRETARIAL STENOGRAPHER 07/29/2024 11:43 AM SECRETARIAL STENOGRAPHER Narrative [facility] - 07/29/2024 12:45 PM SECRETARIAL STENOGRAPHER Please draw the ABO and the Type and Screen as two separate blood draws with each stamped with the two different times stamps as this is a regulatory requirement for this patient to be listed for Kidney Transplant. This lab is being obtained as part of a Kidney transplant evaluation, is time sensitive, and should only be drawn during the evaluation visit at [facility]. Has the patient had Daratumumab or Isatuximab in the past 6 months?->Unknown Jossie King MD LAB BLOOD BANK ERNESTO T ORDERABLES Final Result [facility] Department [place] [address] * ECG 12 lead (07/29/2024 11:14 AM SECRETARIAL STENOGRAPHER) Pathologist [facility] Ventricular Rate EKG/Min 117 BPM [facility] Atrial Rate 117 BPM [facility] [place]-Interval (MSEC) 144 ms [facility] QRS-Interval (MSEC) 126 ms [facility] QT-Interval (MSEC) 366 ms [facility] QTc 510 ms [facility] R [place] -40 degrees [facility] T [place] 147 degrees [facility] Diagnosis Poor data quality, [...] Inferior leads Confirmed by FERDINAND SAL M.D ([id number]) on 07/29/2024 3:38:41 PM [facility] 07/29/2024 11:1 4 AM SECRETARIAL STENOGRAPHER 07/29/2024 3:38 PM SECRETARIAL STENOGRAPHER Jossie King MD ECG ORDERABLES Fi nal Result Performing Organization Address City/[facility]/ZIP Co de Phone Number [facility] * ABO/Rh (07/29/2024 11:13 AM SECRETARIAL STENOGRAPHER) [facility] ABO Rh A Positive Blood 07/29/2024 11:1 3 AM SECRETARIAL STENOGRAPHER 07/29/2024 2:45 PM SECRETARIAL STENOGRAPHER Jossie King MD LAB BLOOD BANK ERNESTO T ORDERABLES Final Result [facility]A [facility] Department [place] [address] * LR HLA Typing (Class I and Class II) (07/29/2024 11:01 AM SECRETARIAL STENOGRAPHER) r-SSO [facility] A First Allele A*03 HISTOT[facility]AC [...] 07/30/24 [facility] Blood 07/29/2024 11:0 1 AM SECRETARIAL STENOGRAPHER 08/02/2024 9:03 AM SECRETARIAL STENOGRAPHER Narrative [facility] - 08/02/2024 9:03 AM SECRETARIAL STENOGRAPHER DNA was extracted from whole blood or buccal cell specimens, and relevant genomic regions were amplified by polymerase chain reactions (PCR). HLA typing was performed on PCR amplicons using reverse sequence-specific oligonucleotide (r-SSO) and/or sequence-specific primers (SSP) based techniques. r-SSO and SSP are FDA approved as IVD tests and validated by the [facility]. Testing performed at the [facility], [facility], [address] floor, [place], [address]. [facility] # [id number]. Dorothy Meade, Ph.D., Quality Control Assistant, HLA Laboratory Rell Samuels M.D., Ph.D., Manager Qa, HLA Laboratory Licha Nieto, Ph.D., [place] Manager Qa, [facility] Current methodology comment last revised on 04/25/17. Jossie King MD LAB BLOOD ORDERABL ES Final Result Performing Organization Address [facility] Co de Phone Number [facility] * Collection Task for HLA Typing 1 (07/29/2024 11:01 AM SECRETARIAL STENOGRAPHER) HLA Class I DNA (ABC) Recipient Received Blood 07/29/2024 11:0 1 AM SECRETARIAL STENOGRAPHER 07/29/2024 11:56 AM SECRETARIAL STENOGRAPHER Jossie King MD LAB BLOOD ORDERABL ES Final Result Performing Organization Address [facility] Co de Phone Number [facility] [place] [address] * Collection Task for HLA Antibody Screen (07/29/2024 11:01 AM SECRETARIAL STENOGRAPHER) HLA Antibody Screen By Single Antigen Received Blood 07/29/2024 11:0 1 AM SECRETARIAL STENOGRAPHER 07/29/2024 11:56 AM SECRETARIAL STENOGRAPHER Jossie King MD LAB BLOOD ORDERABL ES Final Result Performing Organization Address [facility] Co de Phone Number [facility] [place] [address] * Collection Task for HLA Typing 2, Patient (07/29/2024 11:01 AM SECRETARIAL STENOGRAPHER) HLA Class II DNA (DR, DQ, DP) Recipient Received Blood 07/29/2024 11:0 1 AM SECRETARIAL STENOGRAPHER 07/29/2024 11:56 AM SECRETARIAL STENOGRAPHER oJssie King MD LAB BLOOD ORDERABL ES Final Result Performing Organization Address City/[facility] Co de Phone Number [facility] [place] [address] * (ABNORMAL) eGFR (07/29/2024 11:01 AM SECRETARIAL STENOGRAPHER) Pathologist [facility] eGFR 7(L) >=60 mL/min/1. 73 m2 Comment: Interpretive Data Reference Interval Normal >/= 90 mL/min/1.73m2 Mildly decreased* 60 - 89 mL/min/1.73m2 Mildly to moderately decreased 45 - 59 mL/min/1.73m2 Moderately to severely decreased 30 - 44 mL/min/1.73m2 Severely decreased 15 - 29 mL/min/1.73m2 Kidney Failure < 15 mL/min/1.73m2 *Relative to young adult level Estimated glomerular [...] reviewed 2021. Blood 07/29/2024 11:0 1 AM SECRETARIAL STENOGRAPHER 07/29/2024 11:33 AM SECRETARIAL STENOGRAPHER Jossie King MD LAB BLOOD ORDERABL ES Final Result Performing Organization Address City/[facility]/ZIP Co de Phone Number [facility] [place] [address] * Differential, auto (07/29/2024 11:01 AM SECRETARIAL STENOGRAPHER) Neutrophil abs 3.1 1.5 - 6.5 K/cumm Imm gran abs 0.0 0.0 - 0.1 K/cumm [facility] Lymphocyte abs 1.1 0.8 - 3.3 K/cumm [facility] Monocyte abs 0.7 0.2 - 0.8 K/cumm [facility] Eosinophil abs 0.2 0.0 - 0.5 K/cumm [facility] Basophil abs 0.0 0.0 - 0.1 K/cumm [facility] Neutrophil pct 60.3 % [facility] Comment: Interpretive Data Percent cell count reference ranges are not reported, since discordance with absolute values may lead to misinterpretation of CBC data. Current Interpretive Data was last revised on 2017. Imm gran pct 0.6 % [facility] Comment: Interpretive Data Percent cell count reference ranges are not reported, since discordance with absolute values may lead to misinterpretation of CBC data. Current Interpretive Data was last revised on 2017. Lymphocyte pct 21.4 % [facility] Comment: Interpretive Data Percent cell count reference ranges are not reported, since discordance with absolute values may lead to misinterpretation of CBC data. Current Interpretive Data was last revised on 2017. Monocyte pct 13.7 % [facility] Comment: Interpretive Data Percent cell count reference ranges are not reported, since discordance with absolute values may lead to misinterpretation of CBC data. Current Interpretive Data was last revised on 2017. Eosinophil pct 3.2 % [facility] Comment: Interpretive Data Percent cell count reference ranges are not reported, since discordance with absolute values may lead to misinterpretation of CBC data. Current Interpretive Data was last revised on 2017. Basophil pct 0.8 % [facility] Comment: Interpretive Data Percent cell count reference ranges are not reported, since discordance with absolute values may lead to misinterpretation of CBC data. Current Interpretive Data was last revised on 2017. Blood 07/29/2024 11:0 1 AM SECRETARIAL STENOGRAPHER 07/29/2024 11:34 AM SECRETARIAL STENOGRAPHER Jossie King MD LAB BLOOD ORDERABL ES Final Result Performing Organization Address [facility] Co de Phone Number [facility] [place] [address] * PSA screen (07/29/2024 11:01 AM SECRETARIAL STENOGRAPHER) PSA-Total 0.55 <=3.90 ng/mL Comment: Interpretive Data AGE SEX REFERENCE INTERVAL 0 minutes-150 years Female None 0 minutes-49 years Male None 50-59 years Male 0-3.90 60-69 years Male 0-5.40 70-79 years Male 0-6.20 80-150 years Male 0-6.20 The Monica PSA Total assay procedure was used. Results from different manufacturers or methods may not be comparable. Serial testing should be performed using the same method. Current interpretive data last revised 21. Blood 07/29/2024 11:0 1 AM SECRETARIAL STENOGRAPHER 07/29/2024 11:33 AM SECRETARIAL STENOGRAPHER Narrative [facility] - 07/29/2024 12:39 PM SECRETARIAL STENOGRAPHER This lab is being obtained as part of a Kidney transplant evaluation, is time sensitive, and should only be drawn during the evaluation visit at [address] Lab. Jossie King MD LAB BLOOD ORDERABL ES Final Result Performing Organization Address [facility] de Phone Number [facility] Department [place] [address] * (ABNORMAL) Iron profile w/ IBC (07/29/2024 11:01 AM SECRETARIAL STENOGRAPHER) Iron 62 50 - 150 mcg/dL TIBC 208(L) 250 - 400 mcg/dL [facility] Transferrin saturation 30 20 - 50 % [facility] Blood 07/29/2024 11:0 1 AM SECRETARIAL STENOGRAPHER 07/29/2024 11:33 AM SECRETARIAL STENOGRAPHER Narrative [facility] - 07/29/2024 12:10 PM SECRETARIAL STENOGRAPHER This lab is being obtained as part of a Kidney transplant evaluation, is time sensitive, and should only be drawn during the evaluation visit at [address] Lab. Jossie King MD LAB BLOOD ORDERABL ES Final Result Performing Organization Address [facility] de Phone Number [facility] [place] [address] * HIV 1/2 Antibody plus p24 Antigen Blood (07/29/2024 11:01 AM SECRETARIAL STENOGRAPHER) [facility] HIV 1/2 ab + p24 ag Nonreactive Nonreactive Comment:Nonreactive for HIV- 1 antigen and HIV-1/HIV-2 antibodies. No laboratory evidence of HIV infection. If acute HIV infection is suspected, consider testing for HIV-1 RNA. Current interpretive data was last revised on 22. Blood 07/29/2024 11:0 1 AM SECRETARIAL STENOGRAPHER 07/29/2024 11:32 AM SECRETARIAL STENOGRAPHER Narrative [facility] - 07/29/2024 12:13 PM SECRETARIAL STENOGRAPHER This lab is being obtained as part of a Kidney transplant evaluation, is time sensitive, and should only be drawn during the evaluation visit at [address] Lab. Result [facility] Jossie King MD LAB MICROBIOLOGY - GENERAL ORDERABLES Final Result Performing Organization Address [facility] de Phone Number [facility] [place] [address] * (ABNORMAL) CMV, IgG Blood (07/29/2024 11:01 AM SECRETARIAL STENOGRAPHER) [facility] CMV IgG Positive( A) Negative Comment: [...] CMV infection. Blood 07/29/2024 11:0 1 AM SECRETARIAL STENOGRAPHER 07/29/2024 11:33 AM SECRETARIAL STENOGRAPHER Narrative [facility] - 07/29/2024 1:44 PM SECRETARIAL STENOGRAPHER This lab is being obtained as part of a Kidney transplant evaluation, is time sensitive, and should only be drawn during the evaluation visit at [facility] Lab. Jossie King MD LAB MICROBIOLOGY - GENERAL ORDERABLES Final Result [facility] Department [place] [address] * HLA Antibody Screen - SAB (Class I and Class II) (07/29/2024 11:01 AM SECRETARIAL STENOGRAPHER) Class I Treatment EDTA [facility] Class I [...] DR52 [facility] Blood 07/29/2024 11:0 1 AM SECRETARIAL STENOGRAPHER 08/02/2024 9:46 AM SECRETARIAL STENOGRAPHER Narrative [facility] - 08/02/2024 9:46 AM SECRETARIAL STENOGRAPHER Single-antigen HLA antibody screen is performed on serum samples using a method developed and validated by the [facility] HLA laboratory based on an FDA-approved IVD kit (LABScreen Single-Antigen, [employer], [place], [place]). All patient serum samples are pretreated with EDTA before the screen to prevent complement interference. Additional serum treatments, such as adsorption and DTT treatment, may be performed as indicated. Interpretive comments: Low risk: MFI [id number]. Moderate risk: MFI 4625-4639. Increased risk: MFI >/= 5000. The presence [...] to avoid. Testing performed at the [facility], [address] [place] [address], 5th floor, [place], [address]. [facility] # [id number]. Dorothy Meade, Ph.D., Quality Control Assistant, HLA Laboratory Rell Samuels M.D., Ph.D., Manager Qa, HLA Laboratory Licha Nieto, Ph.D., CLIA Manager Qa, [facility] Current methodology and interpretive comments last revised on 09/15/2022. us Jossie King MD LAB BLOOD ORDERABL ES Final Result [facility] * (ABNORMAL) CBC with auto differential (07/29/2024 11:01 AM SECRETARIAL STENOGRAPHER) WBC 5.1 3.8 - 9.9 K/cumm Hgb 11.5(L) 13.0 - 17.5 g/dL [facility] Hct 34.4(L) 38.9 - 50.3 % [facility] Plt 208 150 - 400 K/cumm [facility] MPV 10.8 9.1 - 12.3 fL [facility] RBC 3.76(L) 4.30 - 5.80 M/cumm [facility] MCV 91.5 81.3 - 96.4 fL [facility] MCH 30.6 27.1 - 33.3 pg [facility] MCHC 33.4 32.3 - 35.7 g/dL [facility] RDW CV 14.3 11.1 - 14.9 % [facility] RDW SD 47.9 35.7 - 48.1 fL [facility] NRBC abs 0.00 0.00 - 0.01 K/cumm [facility] Blood 07/29/2024 11:0 1 AM SECRETARIAL STENOGRAPHER 07/29/2024 11:34 AM SECRETARIAL STENOGRAPHER Narrative [facility] - 07/29/2024 11:45 AM SECRETARIAL STENOGRAPHER This lab is being obtained as part of a Kidney transplant evaluation, is time sensitive, and should only be drawn during the evaluation visit at [address] Lab. Jossie King MD LAB BLOOD ORDERABL ES Final Result Performing Organization Address [facility] de Phone Number [facility] [place] [address] * Hepatitis C antibody Blood (07/29/2024 11:01 AM SECRETARIAL STENOGRAPHER) [facility] Hep C Ab Nonreactive Nonreactive Comment:Antibodies to HCV no t detected. Does NOT exclude the possibility of recent exposure to HCV. Current interpretive data was last revised on 22 Blood 07/29/2024 11:0 1 AM SECRETARIAL STENOGRAPHER 07/29/2024 11:32 AM SECRETARIAL STENOGRAPHER Narrative [facility] - 07/29/2024 12:47 PM SECRETARIAL STENOGRAPHER This lab is being obtained as part of a Kidney transplant evaluation, is time sensitive, and should only be drawn during the evaluation visit at [address] Jossie King MD LAB MICROBIOLOGY - GENERAL ORDERABLES Final Result Performing Organization Address City/[facility]/ZIP Co de Phone Number [facility] [place] [address] * (ABNORMAL) Madiha-Morris virus (EBV) antibody panel Blood (07/29/2024 11:01 AM SECRETARIAL STENOGRAPHER) [facility] EBV nuclear Ab Positive(A) Negative Comment:Indicates the presen ce of detectable IgG antibody to EBV Nuclear Antigen. EBV VCA IgG Positive(A) Negative [facility] Comment:Indicates the presen ce of antibody; 90% of the adult population will have been infected with EBV sometime in the past. EBV VCA IgM Negative Negative [facility] Comment:No detectable IgM an tibody to EBV-VCA. A negative result indicates no current infection with EBV. If clinical suspicion of acute EBV infection is present, testing should be repeated after one week. EBV interp Past Infection [facility] Blood 07/29/2024 11:0 1 AM SECRETARIAL STENOGRAPHER 07/29/2024 11:33 AM SECRETARIAL STENOGRAPHER Narrative [facility] - 07/29/2024 1:43 PM SECRETARIAL STENOGRAPHER This lab is being obtained as part of a Kidney transplant evaluation, is time sensitive, and should only be drawn during the evaluation visit at [address] Jossie King MD LAB MICROBIOLOGY - GENERAL ORDERABLES Final Result Performing Organization Address City/[facility] Co de Phone Number [facility] Department [place] [address] * Hepatitis B core antibody, total Blood (07/29/2024 11:01 AM SECRETARIAL STENOGRAPHER) [facility] Hep B core IgG/IgM Nonreactive Nonreactive Blood 07/29/2024 11:0 1 AM SECRETARIAL STENOGRAPHER 07/29/2024 11:32 AM SECRETARIAL STENOGRAPHER Narrative [facility] - 07/29/2024 12:47 PM SECRETARIAL STENOGRAPHER This lab is being obtained as part of a Kidney transplant evaluation, is time sensitive, and should only be drawn during the evaluation visit at [address] Lab[address] Jossie King MD LAB MICROBIOLOGY - GENERAL ORDERABLES Final Result Performing Organization Address City/[facility]/ZIP Co de Phone Number [facility] Department [place] [address] * Protein, urine, random (07/29/2024 11:01 AM SECRETARIAL STENOGRAPHER) Protein, ur, quant 121.2 mg/dL Comment: Interpretive Data No reference range established. Current interpretive data was last revised 2019. Urine 07/29/2024 11:0 1 AM SECRETARIAL STENOGRAPHER 07/29/2024 11:32 AM SECRETARIAL STENOGRAPHER Narrative [facility] - 07/29/2024 12:18 PM SECRETARIAL STENOGRAPHER This lab is being obtained as part of a Kidney transplant evaluation, is time sensitive, and should only be drawn during the evaluation visit at [address] Lab. Jossie King MD LAB URINE ORDERABL ES Final Result Performing Organization Address [facility] [place] [address] * Creatinine, urine, random (07/29/2024 11:01 AM SECRETARIAL STENOGRAPHER) Creatinine Ur 167.1 mg/dL Comment: Interpretive Data No reference range established. Current interpretive data was last revised 2019. Urine 07/29/2024 11:0 1 AM SECRETARIAL STENOGRAPHER 07/29/2024 11:32 AM SECRETARIAL STENOGRAPHER Narrative [facility] - 07/29/2024 12:18 PM SECRETARIAL STENOGRAPHER This lab is being obtained as part of a Kidney transplant evaluation, is time sensitive, and should only be drawn during the evaluation visit at [address] Jossie King MD LAB URINE ORDERABL ES Final Result Performing Organization Address [facility] [place] [address] * HSV 2 IgG Antibody Blood (07/29/2024 11:01 AM SECRETARIAL STENOGRAPHER) HSV 2 IgG Nonreactive Nonreactive Comment: Interpretive Data 1. Nonreactive: No detectable IgG antibody to HSV-2. 2. Equivocal: Presence or absence of detectable antibodies to HSV-2 cannot be determined and the test should be repeated. 3. Reactive: Indicates presence of detectable IgG antibody to HSV-2. Current interpretive data was last revised on 2022. Blood 07/29/2024 11:0 1 AM SECRETARIAL STENOGRAPHER 07/29/2024 11:33 AM SECRETARIAL STENOGRAPHER Narrative [facility] - 07/29/2024 1:44 PM SECRETARIAL STENOGRAPHER This lab is being obtained as part of a Kidney transplant evaluation, is time sensitive, and should only be drawn during the evaluation visit at [address] Jossie King MD LAB MICROBIOLOGY - GENERAL ORDERABLES Final Result Performing Organization Address [facility] Co de Phone Number [facility] [place] [address] * (ABNORMAL) HSV 1 IgG Antibody Blood (07/29/2024 11:01 AM SECRETARIAL STENOGRAPHER) [facility] HSV 1 IgG Reactive( A) Nonreactive Comment: Interpretive Data 1. Nonreactive: No detectable IgG antibody to HSV-1. 2. Equivocal: Presence or absence of detectable antibodies to HSV-1 cannot be determined and the test should be repeated. 3. Reactive: Indicates presence of detectable IgG antibody to HSV-1. Current interpretive data was last revised on 2016. Blood 07/29/2024 11:0 1 AM SECRETARIAL STENOGRAPHER 07/29/2024 11:33 AM SECRETARIAL STENOGRAPHER Narrative [facility] - 07/29/2024 1:44 PM SECRETARIAL STENOGRAPHER This lab is being obtained as part of a Kidney transplant evaluation, is time sensitive, and should only be drawn during the evaluation visit at [address]. Jossie King MD LAB MICROBIOLOGY - GENERAL ORDERABLES Final Result Performing Organization Address [facility] de Phone Number [facility] [place] [address] * RPR Blood (07/29/2024 11:01 AM SECRETARIAL STENOGRAPHER) Pathologist [facility] RPR Nonreactive Nonreactive Blood 07/29/2024 11:0 1 AM SECRETARIAL STENOGRAPHER 07/29/2024 11:33 AM SECRETARIAL STENOGRAPHER Narrative [facility] 07/29/2024 12:34 PM SECRETARIAL STENOGRAPHER This lab is being obtained as part of a Kidney transplant evaluation, is time sensitive, and should only be drawn during the evaluation visit at [address] Jossie King MD LAB MICROBIOLOGY - GENERAL ORDERABLES Final Result Performing Organization Address [facility] de Phone Number [facility] [place] [address] * Hepatitis B surface antibody (immune status) Blood (07/29/2024 11:01 AM SECRETARIAL STENOGRAPHER) [facility] HBsAb (immune status) Reactive Comment:This result is consi stent with immunity to Hepatitis B Virus when used in the setting of routine screening. Current interpretive data was last revised on 22 Blood 07/29/2024 11:0 1 AM SECRETARIAL STENOGRAPHER 07/29/2024 11:32 AM SECRETARIAL STENOGRAPHER Narrative [facility] 07/29/2024 12:47 PM SECRETARIAL STENOGRAPHER This lab is being obtained as part of a Kidney transplant evaluation, is time sensitive, and should only be drawn during the evaluation visit at [address]. Jossie King MD LAB MICROBIOLOGY - GENERAL ORDERABLES Final Result Performing Organization Address City/[facility] Co de Phone Number [facility] [place] [address] * Hepatitis B Surface Antigen Blood (07/29/2024 11:01 AM SECRETARIAL STENOGRAPHER) [facility] HepBsAg Nonreactive Nonreactive Blood 07/29/2024 11:0 1 AM SECRETARIAL STENOGRAPHER 07/29/2024 11:32 AM SECRETARIAL STENOGRAPHER Narrative [facility] - 07/29/2024 12:47 PM SECRETARIAL STENOGRAPHER This lab is being obtained as part of a Kidney transplant evaluation, is time sensitive, and should only be drawn during the evaluation visit at [address] Jossie King MD LAB MICROBIOLOGY - GENERAL ORDERABLES Final Result Performing Organization Address [facility] de Phone Number [facility] Department [place] [address] * (ABNORMAL) aPTT (07/29/2024 11:01 AM SECRETARIAL STENOGRAPHER) aPTT 61(H) 28 - 38 sec Comment: Interpretive Data Heparin therapeutic range: 66.0 - 100.0 seconds. Range based on correlation with therapeutic heparin activity range of 0.3 - 0.7 Units/mL. Current interpretive data was last revised on 2023. Blood 07/29/2024 11:0 1 AM SECRETARIAL STENOGRAPHER 07/29/2024 11:32 AM SECRETARIAL STENOGRAPHER Narrative [facility] - 07/29/2024 11:42 AM SECRETARIAL STENOGRAPHER This lab is being obtained as part of a Kidney transplant evaluation, is time sensitive, and should only be drawn during the evaluation visit at [address] Jossie King MD LAB BLOOD ORDERABL ES Final Result Performing Organization Address [facility] de Phone Number [facility] [place] [address] * (ABNORMAL) Protime-INR (07/29/2024 11:01 AM SECRETARIAL STENOGRAPHER) PT 50.6(H) 9.7 - 13.0 sec INR 4.54(H) 0.90 - 1.20 [facility] Comment: Interpretive data Oral anticoagulant therapeutic ranges: Venous thromboembolism prophylaxis or treatment: 2.0-3.0 CARDIOLOGY Standard range: 2.0-3.0 High-intensity range: 2.5-3.5 Refer to indication-specific guidelines for appropriate target ranges for prosthetic heart valve replacement. Current interpretive data was last revised on 2019. Blood 07/29/2024 11:0 1 AM SECRETARIAL STENOGRAPHER 07/29/2024 11:32 AM SECRETARIAL STENOGRAPHER Narrative [facility] 07/29/2024 11:42 AM SECRETARIAL STENOGRAPHER This lab is being obtained as part of a Kidney transplant evaluation, is time sensitive, and should only be drawn during the evaluation visit at [address] Jossie King MD LAB BLOOD ORDERABL ES Final Result Performing Organization Address [facility] de Phone Number [facility] [place] [address] * Varicella Zoster IgG antibody Blood (07/29/2024 11:01 AM SECRETARIAL STENOGRAPHER) [facility] VZV IgG Reactive Reactive Comment:Reactive: Results diego ggest response to immunization or prior exposure to the virus. Blood 07/29/2024 11:0 1 AM SECRETARIAL STENOGRAPHER 07/29/2024 11:33 AM SECRETARIAL STENOGRAPHER Narrative [facility] 07/29/2024 1:45 PM SECRETARIAL STENOGRAPHER This lab is being obtained as part of a Kidney transplant evaluation, is time sensitive, and should only be drawn during the evaluation visit at [address] Jossie King MD LAB MICROBIOLOGY - GENERAL ORDERABLES Final Result Performing Organization Address [facility] de Phone Number [facility] Department [place] [address] * (ABNORMAL) Uric acid (07/29/2024 11:01 AM SECRETARIAL STENOGRAPHER) [facility] Uric acid 2.0(L) 3.0 - 8.0 mg/dL Blood 07/29/2024 11:0 1 AM SECRETARIAL STENOGRAPHER 07/29/2024 11:33 AM SECRETARIAL STENOGRAPHER Narrative [facility] 07/29/2024 12:10 PM SECRETARIAL STENOGRAPHER This lab is being obtained as part of a Kidney transplant evaluation, is time sensitive, and should only be drawn during the evaluation visit at [address] Jossie King MD LAB BLOOD ORDERABL ES Final Result Performing Organization Address City/[facility] Co de Phone Number [facility] [place] [address] * (ABNORMAL) Phosphorus (07/29/2024 11:01 AM SECRETARIAL STENOGRAPHER) [facility] Phosphorus, pl 5.1(H) 2.3 - 4.5 mg/dL Blood 07/29/2024 11:0 1 AM SECRETARIAL STENOGRAPHER 07/29/2024 11:33 AM SECRETARIAL STENOGRAPHER Narrative [facility] - 07/29/2024 12:10 PM SECRETARIAL STENOGRAPHER This lab is being obtained as part of a Kidney transplant evaluation, is time sensitive, and should only be drawn during the evaluation visit at [address] Lab[address] Jossie King MD LAB BLOOD ORDERABL ES Final Result Performing Organization Address [facility] Co de Phone Number [facility] [place] [address] * (ABNORMAL) PTH (07/29/2024 11:01 AM SECRETARIAL STENOGRAPHER) [facility] PTH 444(H) 15 - 65 pg/mL Blood 07/29/2024 11:0 1 AM SECRETARIAL STENOGRAPHER 07/29/2024 11:34 AM SECRETARIAL STENOGRAPHER Narrative [facility] - 07/29/2024 12:02 PM SECRETARIAL STENOGRAPHER This lab is being obtained as part of a Kidney transplant evaluation, is time sensitive, and should only be drawn during the evaluation visit at [address] Jossie King MD LAB BLOOD ORDERABL ES Final Result Performing Organization Address City/[facility] Co de Phone Number [facility] [place] [address] * (ABNORMAL) Hemoglobin A1c (07/29/2024 11:01 AM SECRETARIAL STENOGRAPHER) [facility] Hgb A1C 9.0(H) 4.0 - 5.6 % Estimated Average Glucose 212 mg/dL [facility] Comment: The ADA recommends reporting an estimated Average Glucose (eAG) with all Hemoglobin A1c results using the equation derived from a study of 507 normal and diabetic adults. Minority populations were underrepresented and children were not included. (Diabetes Care 2020; 43(S1): S66-S76). The eAG is not equivalent to a fasting glucose. Blood 07/29/2024 11:0 1 AM SECRETARIAL STENOGRAPHER 07/29/2024 11:34 AM SECRETARIAL STENOGRAPHER Narrative [facility] - 07/29/2024 11:53 AM SECRETARIAL STENOGRAPHER This lab is being obtained as part of a Kidney transplant evaluation, is time sensitive, and should only be drawn during the evaluation visit at [address] Jossie King MD LAB BLOOD ORDERABL ES Final Result Performing Organization Address City/[facility] Co de Phone Number [facility] [place] [address] * Gamma GT (07/29/2024 11:01 AM SECRETARIAL STENOGRAPHER) GGT 22 10 - 50 Units/L Blood 07/29/2024 11:0 1 AM SECRETARIAL STENOGRAPHER 07/29/2024 11:33 AM SECRETARIAL STENOGRAPHER Narrative [facility] 07/29/2024 12:40 PM SECRETARIAL STENOGRAPHER This lab is being obtained as part of a Kidney transplant evaluation, is time sensitive, and should only be drawn during the evaluation visit at [address] Jossie King MD LAB BLOOD ORDERABL ES Final Result Performing Organization Address [facility] Co de Phone Number [facility] [place] [address] * (ABNORMAL) Ferritin (07/29/2024 11:01 AM SECRETARIAL STENOGRAPHER) Ferritin 761(H) 30 - 400 ng/mL Blood 07/29/2024 11:0 1 AM SECRETARIAL STENOGRAPHER 07/29/2024 11:33 AM SECRETARIAL STENOGRAPHER Narrative [facility] - 07/29/2024 12:10 PM SECRETARIAL STENOGRAPHER This lab is being obtained as part of a Kidney transplant evaluation, is time sensitive, and should only be drawn during the evaluation visit at [facility] Lab. Jossie King MD LAB BLOOD ORDERABL ES Final Result [facility] Department [place] [address] * (ABNORMAL) Lipid panel (07/29/2024 11:01 AM SECRETARIAL STENOGRAPHER) Cholesterol 114 30 - 199 mg/dL Comment: Interpretive Data Ages < or = 19 years Acceptable: <170 mg/dL Borderline high: 170-199 mg/dL High: >or= 200 mg/dL Ages > or = 20 years Desirable: <200 mg/dL Borderline high: 200-239 mg/dL High: >or= 240 mg/dL Literature References: 1. Expert Panel on Integrated Guidelines for Cardiovascular Health and Risk Reduction in Children and Adolescents. Pediatrics 2011;128:S213 2. NCEP Expert Panel. Circulation 2004;110:227 Current Interpretive Data was last revised on 2018. Triglycerides 66 <=149 mg/dL [facility] Comment: Interpretive Data Ages < or = 9 years Acceptable: <75 mg/dL Borderline high: 75-99 mg/dL High: >or= 100 mg/dL Ages 10 to 20 years Acceptable: <90 mg/dL Borderline high: 90-129 mg/dL High: >or= 130 mg/dL Ages > or = 20 years Desirable: <150 mg/dL Borderline high: 150-199 mg/dL High: 200-499 mg/dL Very high: >or= 499 mg/dL Literature References: 1. Expert Panel on Integrated Guidelines for Cardiovascular Health and Risk Reduction in Children and Adolescents. Pediatrics 2011;128:S213 2. NCEP Expert Panel. Circulation 2004;110:227 Current Interpretive Data was last revised on 2018. HDL 29(L) >=40 mg/dL [facility] Comment: Interpretive Data [...] 2018. LDL, calculated 71 <=129 mg/dL [facility] Comment: Interpretive Data Ages < or = 19 years Acceptable: <110 mg/dL Borderline high: 110-129 mg/dL High: >or= 130 mg/dL Ages > or = 20 years Optimal: <100 mg/dL Near optimal: 100-129 mg/dL Borderline high: 130-159 mg/dL High: >160 mg/dL Calculated using the Jose LDL-C estimating [...] revised on 2024. Non-HDL Cholesterol 85 mg/dL [facility] Comment: Interpretive Data Ages < or = 19 years Acceptable: <120 mg/dL Borderline high: 120-144 mg/dL High: >145 mg/dL Ages > or = 20 years When triglycerides are >200 mg/dL, Non-HDL cholesterol is a secondary target of therapy with treatment goals that are 30 mg/dL greater than the LDL cholesterol target. Literature References: 1. Expert Panel on Integrated Guidelines for Cardiovascular Health and Risk Reduction in Children and Adolescents. Pediatrics 2011;128:S213 2. NCEP Expert Panel. Circulation 2004;110:227 Current Interpretive Data was last revised on 2018. Chol/HDL ratio 4 [facility] Blood 07/29/2024 11:0 1 AM SECRETARIAL STENOGRAPHER 07/29/2024 11:33 AM SECRETARIAL STENOGRAPHER Narrative [facility] - 07/29/2024 12:10 PM SECRETARIAL STENOGRAPHER This lab is being obtained as part of a Kidney transplant evaluation, is time sensitive, and should only be drawn during the evaluation visit at [facility] Lab. Jossie King MD LAB BLOOD ORDERABL ES Final Result [facility] Department [place] [address] * (ABNORMAL) Comprehensive metabolic panel (07/29/2024 11:01 AM SECRETARIAL STENOGRAPHER) Sodium 136 135 - 145 mmol/L Potassium, pl 4.6 3.3 - 4.9 mmol/L [facility] Chloride 93(L) 97 - 110 mmol/L [facility] CO2 26 22 - 32 mmol/L [facility] Anion gap 17(H) 2 - 15 mmol/L [facility] BUN 65(H) 6 - 25 mg/dL [facility] Creatinine 8.07(H) 0.80 - 1.30 mg/dL [facility] Glucose 280(H) 70 - 199 mg/dL [facility] Comment: Interpretive Data Fasting glucose >/= 126 mg/dl is diagnostic for diabetes. Fasting is defined as no caloric intake [...] 2022. Calcium 9.4 8.5 - 10.3 mg/dL [facility] Bilirubin, total 0.3 0.1 - 1.2 mg/dL [facility] Protein, pl 7.2 6.5 - 8.5 g/dL [facility] Albumin 3.8 3.5 - 5.0 g/dL [facility] Alk phos 99 40 - 130 Units/L [facility] ALT 30 7 - 55 Units/L [facility] AST 31 10 - 50 Units/L [facility] Blood 07/29/2024 11:0 1 AM SECRETARIAL STENOGRAPHER 07/29/2024 11:33 AM SECRETARIAL STENOGRAPHER Narrative [facility] - 07/29/2024 12:10 PM SECRETARIAL STENOGRAPHER This lab is being obtained as part of a Kidney transplant evaluation, is time sensitive, and should only be drawn during the evaluation visit at [facility] Lab. Jossie King MD LAB BLOOD ORDERABL ES Final Result Performing Organization Address City/[facility] Co de Phone Number [facility] Department [place] [address] * (ABNORMAL) Oxalate (oxalic acid) (07/29/2024 10:53 AM SECRETARIAL STENOGRAPHER) Oxalate 12.3(H) <=2.0 mcmol/L [facility] Comment: High value suggestive of Primary Hyperoxaluria. However, if the patient has chronic kidney disease (GFR<30 mL/min/1.73m2), plasma oxalate values up to 30 mcmol/L can be normal. The [facility] Hyperoxaluria [facility] is available to review case details and answer any questions regarding interpretation ([email or web address] [phone]) ADDITIONAL INFORMATION This test has been modified from the coin counter and wrapper's instructions. Its performance characteristics were determined by [facility] in a manner consistent with CLIA requirements. This test has not been cleared or approved by the U.S. Food and Drug Administration. Test Performed by: [facility] - [address] [address] [employer] Supervisor: Jairo Higgins Ph.D.; CLIA# [id number] Blood 07/29/2024 10:5 3 AM SECRETARIAL STENOGRAPHER 07/29/2024 11:37 AM SECRETARIAL STENOGRAPHER Jossie King MD LAB BLOOD ORDERABL ES Final Result Performing Organization Address City/[facility] Co de Phone Number [facility] Department [place] [address] [place] [facility] * (ABNORMAL) Urinalysis reflex to microscopic (07/29/2024 10:53 AM SECRETARIAL STENOGRAPHER) Color, ur Yellow Yellow Clarity, ur Cloudy(A) Clear [facility] Specific gravity, ur 1.022 1.003 - 1.030 [facility] pH, urine 6.0 [facility] Comment: Interpretive Data U rine pH is affected by diet, medications, systemic acid-base disturbances, and renal tubular function. pH may affect urinary stone formation. For example, urine pH below 6.0 may help reduce the tendency for calcium phosphate stones and pH greater than 6.0 may reduce the tendency for uric acid stone formation. Source: [facility] Current Interpretive Data was last revised on 2017 Protein, ur ql 2+(A) Negative [facility] Glucose, ur ql 4+(A) Negative [facility] Ketones, ur Negative Negative [facility] Bilirubin, ur Negative Negative [facility] Blood, ur 3+(A) Negative [facility] Urobilinogen, ur <2.0 <2.0 mg/dL [facility] Nitrite, ur Negative Negative [facility] Leukocyte esterase, ur 2+(A) Negative [facility] UA reflex comment Reflex to microscopic UA will be performed. [facility] Urine 07/29/2024 10:5 3 AM SECRETARIAL STENOGRAPHER 07/29/2024 11:27 AM SECRETARIAL STENOGRAPHER Narrative [facility] - 07/29/2024 11:29 AM SECRETARIAL STENOGRAPHER This lab is being obtained as part of a Kidney transplant evaluation, is time sensitive, and should only be drawn during the evaluation visit at [facility] Lab. us Jossie King MD LAB URINE ORDERABL ES Final Result Performing Organization Address City/[facility]/ZIP Co de Phone Number [facility] [place] [address] * (ABNORMAL) Urinalysis, microscopic only (07/29/2024 10:53 AM SECRETARIAL STENOGRAPHER) WBC, ur 21-50(A) 0 - 5 /HPF RBC, ur >50(A) 0 - 2 /HPF [facility] Epithelial cells, squamous, ur 1-5 0 - 5 /HPF [facility] Bacteria, ur Trace(A) [facility] Mucous, ur Present(A) [facility] Hyaline casts, ur 1-5 0 - 10 /LPF [facility] Urine 07/29/2024 10:5 3 AM SECRETARIAL STENOGRAPHER 07/29/2024 11:27 AM SECRETARIAL STENOGRAPHER us Jossie King MD LAB URINE ORDERABL ES Final Result [facility] [place] [address] * (ABNORMAL) TSH (10/27/2023 2:30 AM SECRETARIAL STENOGRAPHER) Thyroid Stimulating Hormone 13.20(H) 0.30 - 4.20 mcIUnit/mL Blood 10/27/2023 2:30 AM SECRETARIAL STENOGRAPHER 10/27/2023 2:42 AM SECRETARIAL STENOGRAPHER us Lorne Mcnulty MD LAB BLOOD ORDERABLES Final Result [facility] Quintin [address]orro [place] [address] from Last 3 Months or Most Recently Relevant to Health Maintenance Insurance [employer] MED[employer]ARE SOLUTIONS [employer] MED[employer]ARE SOLUTIONS TRANSPLANT [employer] MEDICARE RISK IDPA TRANSPLANT [employer] MED[employer] RISK IDPA Advance Directives For more information, please contact: [phone] * Full Code (Latest Code Status on File) Date Activated Date Inactivated Comments 10/13/2023 11:32 PM 11/03/2023 11:42 PM * Full Code Date Activated Date Inactivated Comments 06/05/2022 6:17 AM 06/29/2022 6:20 PM * Full Code Date Activated Date Inactivated Comments 06/05/2022 4:43 AM 06/05/2022 4:43 AM * Full Code Date Activated Date Inactivated Comments 06/04/2022 9:55 PM 06/05/2022 4:43 AM Care Teams Ethyl Blender Relationship Specialty Start Date End Date Aditya Castro MD [address] [place] [address] PCP - General 10/17/19 Alondra Lambert, RN [address] [facility] [address] [place] [address] Paint Line Operator 03/06/24 Hamlet Ortega Jr., MD [address] [place] [address] Consulting Physician Cardiovascular Disease 05/10/24 Leandro Reyes MD [address] [facility] [address] [place] [address] Consulting Physician Nephrology 07/30/24
--- OUTSIDE RECORDS SUMMARY | 2024-10-16 15:34 | XMS_ITS | Encounter Summary ---
Author Organization [facility] Address [address], [place] [address] Phone Care Team Providers Care Pipe Fitter Supervisor Name Role Phone Unavailable Primary Care Provider Unavailabl e Reason for Visit * Reason Comments Med Refill Encounter Details Date Type Department Care Team (Late st Contact Info) Description 07/04/2019 Refill [facility] [address] [address] Leandro Reyes MD [address] [address] Social History Tobacco Use Types [...]
--- OUTSIDE RECORDS SUMMARY | 2024-10-16 15:34 | XMS_ITS | Encounter Summary ---
Author Organization [facility] Address [address] [address] Phone Care Team Providers Care Cardroom Drawing Runner Name Role Phone Unavailable Primary Care Provider Unavailabl e Reason for Visit * Reason Comments Med Refill Encounter Details Date Type Department Care Team (Late st Contact Info) Description 10/08/2019 Refill [facility] [address] [address] Leandro Reyes MD [address] [address] Social History Tobacco Use Types [...]
--- OUTSIDE RECORDS SUMMARY | 2024-10-16 15:34 | XMS_ITS | Referral Summary ---
Author Organization [facility] Address [address] [place] [address] Care Team Providers Care Air Brake Operator Name Role Phone Aditya Castro Primary Care Provider Unavailab le Source Comments [facility],non-owned Affiliates and Associated Physician Practices is amultiple site organization consisting of ambulatory clinics and hospital sitesin [place], [place], [place] and [place]. This disclosure is being madepursuant to the Care Everywhere program and may not contain all information available regarding this patient. Last updated 18.[facility] Allergies Active Allergy Reactions Criticality Noted Date [...] needed 01/25/2019 Active vitamin D, ergocalciferol, (DRISDOL) 45430 units capsule Take 50,000 Units by mouth [...] fluticasone propionate (FLONASE) 50 MCG/ACT nasal spray [place] 1 spray into each nostril once daily 04/24/2019 Active epoetin (PROCRIT) 81651 UNIT/ML injection Inject subcutaneously every 14 days [...] were not included. Juvenal Garvin 1970 Referring Vice President Of Software Development: Leandro Reyes Dialysis Info: Type: PD Time: 160 days (11/05/2019) Blood Type: A Body mass index is 37.8 kg/m . ALERTS Embossing Tool Setter: Vashti Lizama NP Past Medical History: Diagnosis Date Anemia Arthritis Arthropathy osteo. back and knees see Dr. Cierra ELIAS (coronary artery disease) Community acquired pneumonia 2017 [facility] hospitalized with double pneumonia Congestive heart failure Coronary artery disease Diabetes mellitus type 1 teens dx when he was 13. Insulin since he was dx. Insulin pump currently with dexacom. 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 DM (diabetes mellitus) TYPE 1 DVT (deep venous thrombosis) 2017 [facility]. ESRD on peritoneal dialysis Gout History of blood transfusion 2017 during admission for ME HLD (hyperlipidemia) HTN (hypertension) Hypercholesteremia 5 years on med Hypertension 30's on medications. Kidney disease Myocardial infarction 2017 [facility]. Stent x1 placed. Neuropathy feet Obstructive [...] file Gets together: Not on file Attends tenriism service: Not on file Active member of [...] 07/02/2020: Committee Discussion Details: Pt brought to [facility] to discuss his cardiac workup. [...] stress. Stress ejection fraction estimated at 83%. [facility]: 08/26/2019 NM exercise Stress: 04/16/2019 04/17/2017 [...] is the impression of this social media content manager that Juvenal Garvin has several positive [...] advised of safety concerns regarding immunosuppressants. Plan: chrome worker to provide supportive services as needed. Patient appears to be a reasonable candidate for transplant from a psychosocial perspective. -Post transplant arrangement forms are needed prior to being listed. Psychiatric Consult Recommended: No Transplant Safe Deposit Clerk: Radha Roper LCSW RD:05/14/2020 BMI= 40.0, Class [...] Comments Blood Pressure 140/60 07/13/2020 1:30 PM GARNETT MACHINE OPERATOR Pulse 65 07/13/2020 1:30 PM GARNETT MACHINE OPERATOR Temperature 36.1 C (97 F) 07/13/2020 1:30 PM GARNETT MACHINE OPERATOR Respiratory Rate 20 07/13/2020 1:30 PM GARNETT MACHINE OPERATOR Oxygen Saturation 95% 07/13/2020 1:30 PM GARNETT MACHINE OPERATOR Inhaled Oxygen Concentration - - Weight 134.3 kg (296 lb) 07/13/2020 1:30 PM GARNETT MACHINE OPERATOR Height 176.5 cm (5' 9.5 ) 07/13/2020 1:30 PM GARNETT MACHINE OPERATOR Body Mass Index 43.08 07/13/2020 1:30 PM GARNETT MACHINE OPERATOR Plan of Treatment Not on [...] ve Non-react bianca 05/14/2020 11:49 AM CDT [facility] Comment:Neither HIV-1 p24 An tigen nor HIV-1/HIV-2 Antibodies are detected. Blood BLOOD SPECIMEN / Unknown Lab Venipuncture / Unknown 05/14/2020 10:18 AM CDT 05/14/2020 10:57 AM CDT Glenny Martin MD LAB - HEMATOLOG Y ORDERABLES [facility] [address] [place] [address], [facility] [phone] * (ABNORMAL) COMPREHENSIVE METABOLIC PANEL (05/14/2020 10:18 AM [facility]) BUN 65(H) 7 - 26 mg/dL 05/14/2020 11:41 AM [facility] Creatinine 5.6(H) 0.6 - 1.2 mg/dL 05/14/2020 11:41 AM [facility] Sodium 142 136 - 145 mmol/L 05/14/2020 11:41 AM [facility] Potassium 3.7 3.5 - 4.5 mmol/L 05/14/2020 11:41 AM [facility] Chloride 101 98 - 107 mmol/L 05/14/2020 11:41 AM [facility] CO2 28 22 - 29 mmol/L 05/14/2020 11:41 AM [facility] Glucose 162(H) 70 - 115 mg/dL 05/14/2020 11:41 AM [facility] Calcium 9.0 8.4 - 10.2 mg/dL 05/14/2020 11:41 AM [facility] Protein Total 6.9 6.0 - 8.3 g/dL 05/14/2020 11:41 AM [facility] Albumin 3.7 3.4 - 5.0 g/dL 05/14/2020 11:41 AM [facility] Bilirubin Total 0.7 0.2 - 1.2 mg/dL 05/14/2020 11:41 AM [facility] Alkaline Phosphatase 140 40 - 150 Units/L 05/14/2020 11:41 AM [facility] ALT 43 0 - 55 Units/L 05/14/2020 11:41 AM [facility] AST 29 5 - 34 Units/L 05/14/2020 11:41 AM [facility] Anion Gap 17 8 - 18 05/14/2020 11:41 AM [facility] BUN/Creatinine Ratio 12 7 - 23 05/14/2020 11:41 AM [facility] Osmolality Calculated 316(H) 270 - 300 mOsm/kg 05/14/2020 11:41 AM CDT [facility] Albumin/Globulin Ratio 1.2 1.1 - 2.3 05/14/2020 11:41 AM CDT [facility] eGFR 11(L) >60 mL/min/1.7 3 m2 05/14/2020 11:41 AM CDT [facility] Blood BLOOD SPECIMEN / Unknown Lab Venipuncture / Unknown 05/14/2020 10:18 AM CDT 05/14/2020 10:55 AM CDT Glenny Martin MD LAB - CHEMISTRY ORDERABLES [facility] [address] [place] [address], [place] [phone] * HEPATITIS C ANTIBODY (05/14/2020 10:18 AM CDT) Hepatitis C Antibody Non-react bianca Non-reac tive 05/14/2020 11:49 AM CDT [facility] Comment:Hepatitis C Antibody screen indicates no [...] Glenny Martin MD LAB - CHEMISTRY ORDERABLES [facility] [address] [place] [address], [place] [phone] from Last 3 Months or Most Recently Relevant to Health Maintenance Insurance Payer Benefit Plan / Group Subscriber ID Effective Dates Phone Address Type AETNA MEDICARE ADV AETNA MEDICARE ADV HMO/PPO/PFFS [id number] Effective for all dates [address] [place] [address] Medicare-[facility] MEDICAID [facility] MEDICAID [employer] [facility] Effective for all dates [address] [place] [address] Medicaid AETNA MEDICARE ADV AETNA MEDICARE ADV HMO/PPO/PFFS [id number] Effective for all dates [address] [place] [address] Medicare-[place] naged Care [facility]ICAID [facility] MEDICAID [employer] Effective for all dates [address] [place] [address] Medicaid AETNA MEDICARE ADV AETNA MEDICARE ADV HMO/PPO/PFFS [id number] Effective for all dates [address] [place] [address] [place] Care MEDICA[place] [employer] [facility] MEDICAID [employer] [facility] Effective for all dates [address] [place] [address] Medicaid MEDICARE S MEDICARE PART B [id number] 08/21/2019-Pres ent [address] [address] [place] [address] Medicare MEDICAID - OUT OF STATE MEDICAID [facility] PUBLIC AID [id number] 08/21/2019-Pres ent [address] [address] [place] [address] Medicaid MEDICARE MEDICARE PART A AND B [id number] 08/21/2019-Pres ent [address] [place] [address] [place] [id number] Effective for all dates [address] [address] [place] [address] Medicaid [place] Advance Directives * Full Code (Latest Code Status on File) Date Activated Date Inactivated Comments 11/22/2018 9:24 AM 11/23/2018 7:55 PM Care Teams Air Brake Operator Relationship Specialty Start Date End Date Aditya Castro Update Information PCP - General 03/06/19
--- OUTSIDE RECORDS SUMMARY | 2024-10-16 15:34 | XMS_ITS ---
Author Organization [facility] Address [address] [place] [address] Care Team Providers Care Blender Conveyor Operator Name Role Phone Aditya Castro MD Primary Care Provider [phone] Alondra Lambert RN Unavailable [phone] Shannon Brock MD, [place] P. Unavailable Leandro Reyes MD Unavailable [phone] Dialysis Access Sites Type Status Location Placement Date Removal Da te Peritoneal Dialysis Catheter Continuous cycling Active Hemodialysis Cath Double Inactive Right N emiliano (side) - Anterior 06/18/2022 06/25/2022 Hemodialysis Cath Triple Inactive Neck - Anterior 202106/16/2022 Procedures Procedure Name Priority Date/Time Associated Diagnosis Comments CARDIOLOGY DOCUMENT SCAN Routine 09/08/2024 11:26 AM GO GO DANCER CARDIOLOGY DOCUMENT SCAN Routine 09/07/2024 11:24 AM GO GO DANCER CARDIOLOGY DOCUMENT SCAN Routine 09/05/2024 11:06 AM GO GO DANCER HLA SOLID ORGAN TYPING REPORT 08/02/2024 9:04 AM GO GO DANCER SIX MINUTE WALK Routine 07/29/2024 2:46 PM GO GO DANCER End stage renal disease (CMS/HCC) (HCC) CT ABDOMEN PELVIS WO CONTRAST Schedule Routine, Read Routine (OP Routine) 07/29/2024 12:43 PM GO GO DANCER End stage renal disease (CMS/HCC) (HCC) XR ORTHOPANTOGRAM/PANOR EX Schedule Routine, Read Routine (OP Routine) 07/29/2024 11:44 AM GO GO DANCER End stage renal disease (CMS/HCC) (HCC) TYPE AND SCREEN Routine 07/29/2024 11:23 AM GO GO DANCER End stage renal disease (CMS/HCC) (HCC) ECG 12-LEAD Routine 07/29/2024 11:14 AM GO GO DANCER End stage renal disease (CMS/HCC) (HCC) ABO/RH Routine 07/29/2024 11:13 AM GO GO DANCER EGFR Routine 07/29/2024 11:01 AM GO GO DANCER End stage renal disease (CMS/HCC) (HCC) DIFFERENTIAL AUTO Routine 07/29/2024 11: 01 AM GO GO DANCER End stage renal disease (CMS/HCC) (HCC) CBC WITH AUTO DIFFERENTIAL Routine 07/29/2024 11:01 AM GO GO DANCER End stage renal disease (CMS/HCC) (HCC) COMPREHENSIVE METABOLIC PANEL Routine 07/29/2024 11:01 AM GO GO DANCER End stage renal disease (CMS/HCC) (HCC) CREATININE, URINE, RANDOM Routine 07/29/2024 11:01 AM GO GO DANCER End stage renal disease (CMS/HCC) (HCC) FERRITIN Routine 07/29/2024 11:01 AM GO GO DANCER End stage renal disease (CMS/HCC) (HCC) GAMMA GT Routine 07/29/2024 11:01 AM GO GO DANCER End stage renal disease (CMS/HCC) (HCC) HEMOGLOBIN A1C Routine 07/29/2024 11:01 AM GO GO DANCER End stage renal disease (CMS/HCC) (HCC) IRON PROFILE W/ IBC Routine 07/29/2024 1 1:01 AM GO GO DANCER End stage renal disease (CMS/HCC) (HCC) LIPID PANEL Routine 07/29/2024 11:01 AM GO GO DANCER End stage renal disease (CMS/HCC) (HCC) PTH Routine 07/29/2024 11:01 AM GO GO DANCER End stage renal disease (CMS/HCC) (HCC) APTT Routine 07/29/2024 11:01 AM GO GO DANCER End stage renal disease (CMS/HCC) (HCC) PHOSPHORUS Routine 07/29/2024 11:01 AM GO GO DANCER End stage renal disease (CMS/HCC) (HCC) PROTEIN, URINE, RANDOM Routine 07/29/2024 11:01 AM GO GO DANCER End stage renal disease (CMS/HCC) (HCC) PROTIME-INR Routine 07/29/2024 11:01 AM GO GO DANCER End stage renal disease (CMS/HCC) (HCC) URIC ACID Routine 07/29/2024 11:01 AM GO GO DANCER End stage renal disease (CMS/HCC) (HCC) PSA SCREEN Routine 07/29/2024 11:01 AM GO GO DANCER End stage renal disease (CMS/HCC) (HCC) LR HLA TYPING (CLASS I AND CLASS II) Routine 07/29/2024 11:01 AM GO GO DANCER End stage renal disease (CMS/HCC) (HCC) HLA CLASS I DNA (ABC) RECIPIENT Routine 07/29/2024 11:01 AM GO GO DANCER End stage renal disease (CMS/HCC) (HCC) HLA CLASS II DNA (DR, DQ, DP) RECIPIENT Routine 07/29/2024 11:01 AM GO GO DANCER End stage renal disease (CMS/HCC) (HCC) HLA ANTIBODY SCREEN - SAB (CLASS I AND CLASS II) Routine 07/29/2024 11:01 AM GO GO DANCER End stage renal disease (CMS/HCC) (HCC) HLA ANTIBODY SCREEN BY SINGLE ANTIGEN Routine 07/29/2024 11:01 AM GO GO DANCER End stage renal disease (CMS/HCC) (HCC) CMV, IGG Routine 07/29/2024 11:01 AM GO GO DANCER End stage renal disease (CMS/HCC) (HCC) MADIHA-MORRIS VIRUS VCA ANTIBODY PANEL Routine 07/29/2024 11:01 AM GO GO DANCER End stage renal disease (CMS/HCC) (HCC) HIV 1/2 ANTIBODY PLUS P24 ANTIGEN Routine 07/29/2024 11:01 AM GO GO DANCER End stage renal disease (CMS/HCC) (HCC) HSV 1 ANTIBODY, IGG Routine 07/29/2024 1 1:01 AM GO GO DANCER End stage renal disease (CMS/HCC) (HCC) HSV 2 ANTIBODY, IGG Routine 07/29/2024 1 1:01 AM GO GO DANCER End stage renal disease (CMS/HCC) (HCC) HEPATITIS B CORE ANTIBODY, TOTAL Routine 07/29/2024 11:01 AM GO GO DANCER End stage renal disease (CMS/HCC) (HCC) HEPATITIS B SURFACE ANTIBODY (IMMUNE STATUS) Routine 07/29/2024 11:01 AM GO GO DANCER End stage renal disease (CMS/HCC) (HCC) HEPATITIS B SURFACE ANTIGEN Routine 07/29/2024 11:01 AM GO GO DANCER End stage renal disease (CMS/HCC) (HCC) HEPATITIS C ANTIBODY Routine 07/29/2024 11:01 AM GO GO DANCER End stage renal disease (CMS/HCC) (HCC) RPR Routine 07/29/2024 11:01 AM GO GO DANCER End stage renal disease (CMS/HCC) (HCC) VARICELLA ZOSTER ANTIBODY, IGG Routine 07/29/2024 11:01 AM GO GO DANCER End stage renal disease (CMS/HCC) (HCC) URINALYSIS, MICROSCOPIC ONLY Routine 07/29/2024 10:53 AM GO GO DANCER End stage renal disease ([facility]) ([facility]) OXALATE Routine 07/29/2024 10:53 AM GO GO DANCER ESRD (end stage renal disease) ([facility]) ([facility]) URINALYSIS AND REFLEX TO MICROSCOPIC Routine 07/29/2024 10:53 AM GO GO DANCER End stage renal disease ([facility]) ([facility]) TSH Routine 10/27/2023 2:30 AM GO GO DANCER from Last 3 Months or Most Recently [...] THIS IS FOR THE INSULIN PUMP: Continue [employer] 5 insulin pump with [employer] G6 CGM at home settings: TIME BASAL [...] tablet (25 mcg total) by mouth early intervention school psychologist before breakfast 30 tablet 1 11/04/19 24 [...] mg SL tablet 12/28/19 18 Active peg [id number] ycerin ([employer]IFICAL TEARS) 1-0.2-0.2 % ophthalmic solution 1 drop 4 (four) times a day 07/07/20 22 Active potassium chloride ER 20 mEq CR tablet Active Active Problems Problem Noted Date Diagnosed Date End stage renal disease ([facility]) 07/29/2024 Nonrheumatic aortic valve stenosis 11/22/2023 Status post aortic valve replacement 11/22/2023 Status post coronary artery bypass grafting 10/2023 CAD in [place] artery 10/13/2023 Anemia 06/22/2022 Assessment & Plan (06/29/2022 10:12 AM GO GO DANCER): Stable, likely 2/2 anemia from ESRD, no [...] trend Hb. ESRD (end stage renal disease) ([facility]) 022 Assessment & Plan (06/29/2022 10:12 AM GO GO DANCER): - Renal consulted, s/p CRRT in the ICU now back on PD. Tolerated well and nephrology following - Trialysis catheter removed - Continue vitamins for renal bone mineral disease. Assessment & Plan (06/28/2022 3:29 PM GO GO DANCER): - Renal consulted, s/p CRRT in the [...] 06/22/2022 Assessment & Plan (06/29/2022 10:12 AM GO GO DANCER): C/b cardiogenic shock requiring impella in the setting of cath and AHRF 2/2 pulmonary edema, now resolved. TTE demonstrating recovered EF 65% with grade I diastolic dysfunction. - metop as above - continue low dose losartan 12.5mg daily, ok per nephro. Tolerating well - volume management per PD Assessment & Plan (06/28/2022 3:29 PM GO GO DANCER): C/b cardiogenic shock requiring impella in the [...] tartrate, start GDMT per cardiology. Atrial fibrillation ([facility]/HCC) 06/22/2022 Assessment & Plan (06/29/2022 10:12 AM GO GO DANCER): Converted to NSR overnight on 06/24. CHADsVASc of 4 not on anticoagulation prior to admission. - cardiology consulted - recommended ongoing rate control - holding off on a/c with high risk for bleeding while on DAPT - reduced metop to 25mg BID in the setting of hypotension, HR 70s NSR Assessment & Plan (06/28/2022 3:30 PM GO GO DANCER): Converted to NSR overnight on 06/24. CHADsVASc [...] AC. NSTEMI (non-ST elevated myocardial infarction) ( [facility]) 06/22/2022 Assessment & Plan (06/29/2022 10:11 AM GO GO DANCER): With recurrent chest pain post-cath. He has [...] today Assessment & Plan (06/28/2022 3:30 PM GO GO DANCER): With recurrent chest pain post-cath. He has [...] 06/22/2022 Assessment & Plan (06/29/2022 10:11 AM GO GO DANCER): Secondary to NSTEMI, s/p Impella since removed on 06/10. Resolved. Assessment & Plan (06/23/2022 4:55 PM CDT): Secondary to NSTEMI, s/p Impella since removed on 06/10. Resolved. Assessment & Plan (06/22/2022 8:22 PM CDT): -Secondary to NSTEMI, s/p Impella since removed on 06/10. Acute hypoxemic respiratory failure 06/09/2022 Assessment & Plan (06/29/2022 10:12 AM GO GO DANCER): Secondary to ACS and flash pulmonary edema, [...] (06/10/2022): Added automatically from request for surgery [id number] Abnormal cardiovascular stress test 12/29/2020 Overview (12/29/2020): Added automatically from request for surgery [id number] 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n ative artery of [place] heart with stable angina pectoris ([facility]) 05/23/2017 History of coronary artery stent placement 05/23 Macular ischemia 03/17/2017 Combined forms of age-related cataract 7 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 03/17/2017 Type 2 diabetes mellitus treated with insulin ([facility]) 03/25/2015 Overview (11/25/2016): Insulin treated Type II diabetes mellitus Chronic kidney disease, stage III (moderate) 12/2014 Overview (11/25/2016): Chronic kidney disease, stage 3 Benign essential hypertension 03/25/2015 Overview (11/25/2016): Benign essential HTN Hyperlipidemia 03/25/2015 Overview (11/25/2016): Hyperlipidemia Pain of finger 11/24/2014 Hypersomnia 11/22/2013 Chronic kidney disease 11/22/2013 Hypertension 01/18/2013 Type 1 diabetes mellitus 01/18/2013 Assessment & Plan (06/29/2022 10:12 AM GO GO DANCER): A1c well controlled on admission. He uses [...] session Assessment & Plan (06/28/2022 3:28 PM GO GO DANCER): A1c well controlled on admission. He uses [...] In the past 12 months has e [employer], gas, oil, or water Collusion threatened to shut off services in your home? No 08/01/2024 Social Connection and Isolation Panel [NHANES] A nswer Date Recorded In a typical week, how many times do you talk on the phone with family, friends, or neighbors? Twice a week 08/01/2024 How often do you get together with friends or re latives? Once a week 08/01/2024 How often do you attend druze or faith serv ices? Never 08/01/2024 Do you belong [...] any time in the past [facility], were you homeless or living in [...] on file Legal Sex Male 3:42 AM GO GO DANCER Gender Identity Not on file Sexual Orientation Not on file Last Filed Vital Signs Vital Sign Reading Time Taken Comments Blood Pressure 122/75 07/29/2024 1:00 PM GO GO DANCER Pulse 116 07/29/2024 1:00 PM GO GO DANCER Temperature 36.8 C (98.2 F) 07/29/2024 1:00 PM GO GO DANCER Respiratory Rate 16 12/01/2023 11:1 3 AM CDT Oxygen Saturation 96% 12/01/2023 11: 13 AM CDT Inhaled Oxygen Concentration - - Weight 121.2 kg (267 lb 1.6 oz) 07/29/2024 1:00 PM GO GO DANCER Height 177.8 cm (5' 10 ) 07/29/2024 1:00 PM GO GO DANCER Body Mass Index 38.32 07/29/2024 1:00 PM GO GO DANCER Results * Cardiology Document Scan (09/08/2024 11:26 AM GO GO DANCER) Anatomical Region Laterality Modality Other Juan Christianson MD CV CARDIAC SERVICES PROCEDU RES Final Result * Cardiology Document Scan (09/07/2024 11:24 AM GO GO DANCER) Anatomical Region Laterality Modality Other Juan Christianson MD CV CARDIAC SERVICES PROCEDU RES Final Result * Cardiology Document Scan (09/05/2024 11:06 AM GO GO DANCER) Anatomical Region Laterality Modality Other Lalit Machuca MD CV CARDIAC SERVICES PROCEDURES F inal Result * HLA Solid Organ Typing Report (08/02/2024 9:04 AM GO GO DANCER) Jossie King MD LAB GENETIC TESTIN G Final Result * Six Minute Walk - (07/29/2024 2:46 PM GO GO DANCER) Anatomical Region Laterality Modality PFT Narrative 07/29/2024 3:52 PM GO GO DANCER Table formatting from the original result was not included. Davey Pickard V., PHYSICIAN'S AIDE on 07/29/2024 2:45 PM Table formatting from the original note was not included. 6 MINUTE WALK RESULTS Name: Juvenal Daigle Jr : 1970 DOS: 07/29/2024 Diagnosis: ESRD/KTE PHYSICIAN'S AIDE performed walk: Carmenza Pickard Rest: 1 [...] Abdomen Pelvis WO Contrast (07/29/2024 12:43 PM GO GO DANCER) Anatomical Region Laterality Modality Body N/A Computed Tomogra phy 07/29/2024 1:04 PM GO GO DANCER Impressions 07/29/2024 1:04 PM GO GO DANCER 1. Moderate discontinuous atherosclerotic calcifications involve the [...] Teresa Rivera M.D. Narrative 07/29/2024 1:04 PM GO GO DANCER EXAMINATION: Computed tomography of the abdomen and [...] Electronically signed by: Maria Teresa Rivera M.D. 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 Electronically signed by: Julio Pinedo M.D. Narrative 07/29/2024 12:59 PM GO GO DANCER EXAMINATION: XR ORTHOPANTOGRAM/PANOREX HISTORY: Kidney Transplant Evaluation [...] * Type and screen (07/29/2024 11:23 AM GO GO DANCER) [facility] Maribel, indirect Negative ABO Rh A Positive [facility] Blood 07/29/2024 11:2 3 AM GO GO DANCER 07/29/2024 11:43 AM GO GO DANCER Narrative [facility] - 07/29/2024 12:45 PM GO GO DANCER Please draw the ABO and the Type and Screen as two separate blood draws with each stamped with the two different times stamps as this is a regulatory requirement for this patient to be listed for Kidney Transplant. This lab is being obtained as part of a Kidney transplant evaluation, is time sensitive, and should only be drawn during the evaluation visit at [facility] 3[facility] Lab. Has the patient had Daratumumab or Isatuximab in the past 6 months?->Unknown Jossie King MD LAB BLOOD BANK ERNESTO T ORDERABLES Final Result [facility] Department [place] [address] * ECG 12 lead (07/29/2024 11:14 AM GO GO DANCER) Pathologist [facility] Ventricular Rate EKG/Min 117 BPM [facility] Atrial Rate 117 BPM [facility] [place]-Interval (MSEC) 144 ms [facility] QRS-Interval (MSEC) 126 ms [facility] QT-Interval (MSEC) 366 ms [facility] QTc 510 ms [facility] R Olmitz -40 degrees [facility] T Olmitz 147 degrees [facility] Diagnosis Poor data quality, interpretation may [...] Inferior leads Confirmed by FERDINAND SAL M.D ([id number]) on 07/29/2024 3:38:41 PM [facility] 07/29/2024 11:1 4 AM GO GO DANCER 07/29/2024 3:38 PM GO GO DANCER Jossie King MD ECG ORDERABLES Fi nal Result Performing Organization Address City/[facility]/ZIP Co de Phone Number [facility] * ABO/Rh (07/29/2024 11:13 AM GO GO DANCER) ABO Rh A Positive Blood 07/29/2024 11:1 3 AM GO GO DANCER 07/29/2024 2:45 PM GO GO DANCER Jossie King MD LAB BLOOD BANK ERNESTO T ORDERABLES Final Result [facility] Department [place] [address] * LR HLA Typing (Class I and Class II) (07/29/2024 11:01 AM GO GO DANCER) r-SSO [facility] A First Allele A*03 HISTOTRAC [...] 07/30/24 [facility] Blood 07/29/2024 11:0 1 AM GO GO DANCER 08/02/2024 9:03 AM GO GO DANCER Narrative [facility] - 08/02/2024 9:03 AM GO GO DANCER DNA was extracted from whole blood or buccal cell specimens, and relevant genomic regions were amplified by polymerase chain reactions (PCR). HLA typing was performed on PCR amplicons using reverse sequence-specific oligonucleotide (r-SSO) and/or sequence-specific primers (SSP) based techniques. r-SSO and SSP are FDA approved as IVD tests and validated by the [facility] HLA Laboratory. Testing performed at the [facility], [address] [place] [address], 5th floor, [place], [address]. [facility] # [id number]. Dorothy Meade, Ph.D., Arcade Game Technician, HLA Laboratory Rell Samuels M.D., Ph.D., Ramp Lead, HLA Laboratory Licha Nieto, Ph.D., CLIA Ramp Lead, [facility] Clinical Laboratories Current methodology comment last revised on 04/25/17. us Jossie King MD LAB BLOOD ORDERABL ES Final Result [facility] * Collection Task for HLA Typing 1 (07/29/2024 11:01 AM GO GO DANCER) Pathologist [facility] HLA Class I DNA (ABC) Recipient Received Blood 07/29/2024 11:0 1 AM GO GO DANCER 07/29/2024 11:56 AM GO GO DANCER Jossie King MD LAB BLOOD ORDERABL ES Final Result Performing Organization Address [facility] Co de Phone Number [facility] [place] [address] * Collection Task for HLA Antibody Screen (07/29/2024 11:01 AM GO GO DANCER) [facility] HLA Antibody Screen By Single Antigen Received Blood 07/29/2024 11:0 1 AM GO GO DANCER 07/29/2024 11:56 AM GO GO DANCER Jossie King MD LAB BLOOD ORDERABL ES Final Result Performing Organization Address [facility] de Phone Number [facility] [place] [address] * Collection Task for HLA Typing 2, Patient (07/29/2024 11:01 AM GO GO DANCER) [facility] HLA Class II DNA (DR, DQ, DP) Recipient Received Blood 07/29/2024 11:0 1 AM GO GO DANCER 07/29/2024 11:56 AM GO GO DANCER Jossie King MD LAB BLOOD ORDERABL ES Final Result Performing Organization Address [facility] de Phone Number [facility] [place] [address] * (ABNORMAL) eGFR (07/29/2024 11:01 AM GO GO DANCER) [facility] eGFR 7(L) >=60 mL/min/1. 73 m2 Comment: [...] reviewed 2021. Blood 07/29/2024 11:0 1 AM GO GO DANCER 07/29/2024 11:33 AM GO GO DANCER us Jossie King MD LAB BLOOD ORDERABL ES Final Result [facility] Department [place] [address] * Differential, auto (07/29/2024 11:01 AM GO GO DANCER) Neutrophil abs 3.1 1.5 - 6.5 K/cumm Imm gran abs 0.0 0.0 - 0.1 K/cumm [facility] Lymphocyte abs 1.1 0.8 - 3.3 K/cumm [facility] revised on 2017. Lymphocyte pct 21.4 % [facility] Comment: [...] revised on 2017. Eosinophil pct 3.2 % [facility] Comment: [...] on 2017. Blood 07/29/2024 11:0 1 AM GO GO DANCER 07/29/2024 11:34 AM GO GO DANCER us Jossie King MD LAB BLOOD ORDERABL ES Final Result [facility] Department [place] [address] * PSA screen (07/29/2024 11:01 AM GO GO DANCER) PSA-Total 0.55 <=3.90 ng/mL Comment: Interpretive Data [...] revised 21. Blood 07/29/2024 11:0 1 AM GO GO DANCER 07/29/2024 11:33 AM GO GO DANCER Narrative [facility] - 07/29/2024 12:39 PM GO GO DANCER This lab is being obtained as part of a Kidney transplant evaluation, is time sensitive, and should only be drawn during the evaluation visit at [address] Lab. Jossie King MD LAB BLOOD ORDERABL ES Final Result Performing Organization Address [facility] de Phone Number [facility] Department [place] [address] * (ABNORMAL) Iron profile w/ IBC (07/29/2024 11:01 AM GO GO DANCER) Pathologist [facility] Iron 62 50 - 150 mcg/dL TIBC 208(L) 250 - 400 mcg/dL [facility] Transferrin saturation 30 20 - 50 % [facility] Blood 07/29/2024 11:0 1 AM GO GO DANCER 07/29/2024 11:33 AM GO GO DANCER Narrative [facility] 07/29/2024 12:10 PM GO GO DANCER This lab is being obtained as part of a Kidney transplant evaluation, is time sensitive, and should only be drawn during the evaluation visit at [address] Jossie King MD LAB BLOOD ORDERABL ES Final Result Performing Organization Address [facility] de Phone Number [facility] [place] [address] * HIV 1/2 Antibody plus p24 Antigen Blood (07/29/2024 11:01 AM GO GO DANCER) Pathologist [facility] HIV 1/2 ab + p24 ag Nonreactive Nonreactive Comment:Nonreactive for HIV- 1 antigen and HIV-1/HIV-2 antibodies. No laboratory evidence of HIV infection. If acute HIV infection is suspected, consider testing for HIV-1 RNA. Current interpretive data was last revised on 22. Blood 07/29/2024 11:0 1 AM GO GO DANCER 07/29/2024 11:32 AM GO GO DANCER Narrative [facility] - 07/29/2024 12:13 PM GO GO DANCER This lab is being obtained as part of a Kidney transplant evaluation, is time sensitive, and should only be drawn during the evaluation visit at [address] Jossie King MD LAB MICROBIOLOGY - GENERAL ORDERABLES Final Result Performing Organization Address [facility] de Phone Number [facility] [place] [address] * (ABNORMAL) CMV, IgG Blood (07/29/2024 11:01 AM GO GO DANCER) Pathologist [facility] CMV IgG Positive( A) Negative Comment: [...] CMV infection. Blood 07/29/2024 11:0 1 AM GO GO DANCER 07/29/2024 11:33 AM GO GO DANCER Narrative [facility] 07/29/2024 1:44 PM GO GO DANCER This lab is being obtained as part of a Kidney transplant evaluation, is time sensitive, and should only be drawn during the evaluation visit at [address] Jossie King MD LAB MICROBIOLOGY - GENERAL ORDERABLES Final Result Performing Organization Address [facility] de Phone Number [facility] [place] [address] * HLA Antibody Screen - SAB (Class I and Class II) (07/29/2024 11:01 AM GO GO DANCER) Pathologist [facility] Class I Treatment EDTA [facility] Class I [...] DR52 [facility] Blood 07/29/2024 11:0 1 AM GO GO DANCER 08/02/2024 9:46 AM GO GO DANCER Narrative [facility] - 08/02/2024 9:46 AM GO GO DANCER Single-antigen HLA antibody screen is performed on serum samples using a method developed and validated by the [facility] HLA laboratory based on an FDA-approved IVD kit (Lomographycreen Single-Antigen, [employer], [place], [place]). All patient serum samples are pretreated with EDTA before the screen to prevent complement interference. Additional serum treatments, such as adsorption and DTT treatment, may be performed as indicated. Interpretive comments: Low risk: MFI [id number]. Moderate risk: MFI [id number]. Increased risk: MFI >/= 5000. The presence [...] to avoid. Testing performed at the [facility], [facility] [address], 5th floor, [place], [address]. [facility] # [id number]. Dorothy Meade, Ph.D., Arcade Game Technician, HLA Laboratory Rell Samuels M.D., Ph.D., Ramp Lead, HLA Laboratory Licha Nieto, Ph.D., CLIA Ramp Lead, [facility] Laboratories Current methodology and interpretive comments last revised on 09/15/2022. Jossie King MD LAB BLOOD ORDERABL ES Final Result Performing Organization Address [facility] Co de Phone Number [facility] * (ABNORMAL) CBC with auto differential (07/29/2024 11:01 AM GO GO DANCER) Pathologist [facility] WBC 5.1 3.8 - 9.9 K/cumm Hgb 11.5(L) 13.0 - 17.5 g/dL [facility] [facility] Hct 34.4(L) 38.9 - 50.3 % [facility] Plt 208 150 - 400 K/cumm [facility] MPV 10.8 9.1 - 12.3 fL [facility] RBC 3.76(L) 4.30 - 5.80 M/cumm [facility] MCV 91.5 81.3 - 96.4 fL [facility] MCH 30.6 27.1 - 33.3 pg [facility] MCHC 33.4 32.3 - 35.7 g/dL [facility] RDW CV 14.3 11.1 - 14.9 % [facility] RDW SD 47.9 35.7 - 48.1 fL [facility] NRBC abs 0.00 0.00 - 0.01 K/cumm [facility] Blood 07/29/2024 11:0 1 AM GO GO DANCER 07/29/2024 11:34 AM GO GO DANCER Narrative [facility] - 07/29/2024 11:45 AM GO GO DANCER This lab is being obtained as part of a Kidney transplant evaluation, is time sensitive, and should only be drawn during the evaluation visit at [facility] Lab. Jossie King MD LAB BLOOD ORDERABL ES Final Result Performing Organization Address [facility] de Phone Number [facility] [place] [address] * Hepatitis C antibody Blood (07/29/2024 11:01 AM GO GO DANCER) [facility] Hep C Ab Nonreactive Nonreactive Comment:Antibodies to HCV no t detected. Does NOT exclude the possibility of recent exposure to HCV. Current interpretive data was last revised on 22 Blood 07/29/2024 11:0 1 AM GO GO DANCER 07/29/2024 11:32 AM GO GO DANCER Narrative [facility] - 07/29/2024 12:47 PM GO GO DANCER This lab is being obtained as part of a Kidney transplant evaluation, is time sensitive, and should only be drawn during the evaluation visit at [facility] Lab. Jossie King MD LAB MICROBIOLOGY - GENERAL ORDERABLES Final Result Performing Organization Address [facility] de Phone Number [facility] Department [place] [address] * (ABNORMAL) Madiha-Morris virus (EBV) antibody panel Blood (07/29/2024 11:01 AM GO GO DANCER) [facility] EBV nuclear Ab Positive(A) Negative Comment:Indicates the presen ce of detectable IgG antibody to EBV Nuclear Antigen. EBV VCA IgG Positive(A) Negative [facility] Comment:Indicates the presen ce of antibody; 90% of the adult population will have been infected with EBV sometime in the past. EBV VCA IgM Negative Negative [facility] Comment:No detectable IgM an tibody to EBV-VCA. A negative result indicates no current infection with EBV. If clinical suspicion of acute EBV infection is present, testing should be repeated after one week. EBV interp Past Infection [facility] Blood 07/29/2024 11:0 1 AM GO GO DANCER 07/29/2024 11:33 AM GO GO DANCER Narrative [facility] - 07/29/2024 1:43 PM GO GO DANCER This lab is being obtained as part of a Kidney transplant evaluation, is time sensitive, and should only be drawn during the evaluation visit at [address] Jossie King MD LAB MICROBIOLOGY - GENERAL ORDERABLES Final Result Performing Organization Address [facility] Co de Phone Number [facility] [place] [address] * Hepatitis B core antibody, total Blood (07/29/2024 11:01 AM GO GO DANCER) Pathologist [facility] Hep B core IgG/IgM Nonreactive Nonreactive Blood 07/29/2024 11:0 1 AM GO GO DANCER 07/29/2024 11:32 AM GO GO DANCER Narrative [facility] 07/29/2024 12:47 PM GO GO DANCER This lab is being obtained as part of a Kidney transplant evaluation, is time sensitive, and should only be drawn during the evaluation visit at [address] Jossie King MD LAB MICROBIOLOGY - GENERAL ORDERABLES Final Result Performing Organization Address [facility] [place] [address] * Protein, urine, random (07/29/2024 11:01 AM GO GO DANCER) [facility] Protein, ur, quant 121.2 mg/dL Comment: Interpretive Data No reference range established. Current interpretive data was last revised 2019. Urine 07/29/2024 11:0 1 AM GO GO DANCER 07/29/2024 11:32 AM GO GO DANCER Narrative [facility] - 07/29/2024 12:18 PM GO GO DANCER This lab is being obtained as part of a Kidney transplant evaluation, is time sensitive, and should only be drawn during the evaluation visit at [address] Result [facility] Jossie King MD LAB URINE ORDERABL ES Final Result Performing Organization Address [facility] Co de Phone Number [facility] [place] [address] * Creatinine, urine, random (07/29/2024 11:01 AM GO GO DANCER) Creatinine Ur 167.1 mg/dL Comment: Interpretive Data No reference range established. Current interpretive data was last revised 2019. Urine 07/29/2024 11:0 1 AM GO GO DANCER 07/29/2024 11:32 AM GO GO DANCER Narrative [facility] - 07/29/2024 12:18 PM GO GO DANCER This lab is being obtained as part of a Kidney transplant evaluation, is time sensitive, and should only be drawn during the evaluation visit at [address] Lab. Jossie King MD LAB URINE ORDERABL ES Final Result Performing Organization Address [facility] de Phone Number [facility] Department [place] [address] * HSV 2 IgG Antibody Blood (07/29/2024 11:01 AM GO GO DANCER) Pathologist [facility] HSV 2 IgG Nonreactive Nonreactive Comment: Interpretive Data 1. Nonreactive: No detectable IgG antibody to HSV-2. 2. Equivocal: Presence or absence of detectable antibodies to HSV-2 cannot be determined and the test should be repeated. 3. Reactive: Indicates presence of detectable IgG antibody to HSV-2. Current interpretive data was last revised on 2022. Blood 07/29/2024 11:0 1 AM GO GO DANCER 07/29/2024 11:33 AM GO GO DANCER Narrative [facility] - 07/29/2024 1:44 PM GO GO DANCER This lab is being obtained as part of a Kidney transplant evaluation, is time sensitive, and should only be drawn during the evaluation visit at [address] Jossie King MD LAB MICROBIOLOGY - GENERAL ORDERABLES Final Result Performing Organization Address [facility] Co de Phone Number [facility] Department [place] [address] * (ABNORMAL) HSV 1 IgG Antibody Blood (07/29/2024 11:01 AM GO GO DANCER) [facility] HSV 1 IgG Reactive( A) Nonreactive Comment: Interpretive Data 1. Nonreactive: No detectable IgG antibody to HSV-1. 2. Equivocal: Presence or absence of detectable antibodies to HSV-1 cannot be determined and the test should be repeated. 3. Reactive: Indicates presence of detectable IgG antibody to HSV-1. Current interpretive data was last revised on 2016. Blood 07/29/2024 11:0 1 AM GO GO DANCER 07/29/2024 11:33 AM GO GO DANCER Narrative [facility] - 07/29/2024 1:44 PM GO GO DANCER This lab is being obtained as part of a Kidney transplant evaluation, is time sensitive, and should only be drawn during the evaluation visit at [address] Jossie King MD LAB MICROBIOLOGY - GENERAL ORDERABLES Final Result Performing Organization Address [facility] Co de Phone Number [facility] [place] [address] * RPR Blood (07/29/2024 11:01 AM GO GO DANCER) [facility] RPR Nonreactive Nonreactive Blood 07/29/2024 11:0 1 AM GO GO DANCER 07/29/2024 11:33 AM GO GO DANCER Narrative [facility] 07/29/2024 12:34 PM GO GO DANCER This lab is being obtained as part of a Kidney transplant evaluation, is time sensitive, and should only be drawn during the evaluation visit at [address] Jossie King MD LAB MICROBIOLOGY - GENERAL ORDERABLES Final Result [facility] [place] [address] * Hepatitis B surface antibody (immune status) Blood (07/29/2024 11:01 AM GO GO DANCER) [facility] HBsAb (immune status) Reactive Comment:This result is consi stent with immunity to Hepatitis B Virus when used in the setting of routine screening. Current interpretive data was last revised on 22 Blood 07/29/2024 11:0 1 AM GO GO DANCER 07/29/2024 11:32 AM GO GO DANCER Narrative [facility] 07/29/2024 12:47 PM GO GO DANCER This lab is being obtained as part of a Kidney transplant evaluation, is time sensitive, and should only be drawn during the evaluation visit at [address]. Jossie King MD LAB MICROBIOLOGY - GENERAL ORDERABLES Final Result Performing Organization Address [facility] de Phone Number [facility] [place] [address] * Hepatitis B Surface Antigen Blood (07/29/2024 11:01 AM GO GO DANCER) HepBsAg Nonreactive Nonreactive Blood 07/29/2024 11:0 1 AM GO GO DANCER 07/29/2024 11:32 AM GO GO DANCER Narrative [facility] 07/29/2024 12:47 PM GO GO DANCER This lab is being obtained as part of a Kidney transplant evaluation, is time sensitive, and should only be drawn during the evaluation visit at [address]. Jossie King MD LAB MICROBIOLOGY - GENERAL ORDERABLES Final Result Performing Organization Address [facility] de Phone Number [facility] [place] [address] * (ABNORMAL) aPTT (07/29/2024 11:01 AM GO GO DANCER) aPTT 61(H) 28 - 38 sec Comment: Interpretive Data Heparin therapeutic range: 66.0 - 100.0 seconds. Range based on correlation with therapeutic heparin activity range of 0.3 - 0.7 Units/mL. Current interpretive data was last revised on 2023. Blood 07/29/2024 11:0 1 AM GO GO DANCER 07/29/2024 11:32 AM GO GO DANCER Narrative [facility] - 07/29/2024 11:42 AM GO GO DANCER This lab is being obtained as part of a Kidney transplant evaluation, is time sensitive, and should only be drawn during the evaluation visit at [address]. Jossie King MD LAB BLOOD ORDERABL ES Final Result Performing Organization Address [facility] de Phone Number [facility] [place] [address] * (ABNORMAL) Protime-INR (07/29/2024 11:01 AM GO GO DANCER) Pathologist [facility] PT 50.6(H) 9.7 - 13.0 sec INR 4.54(H) 0.90 - 1.20 [facility] Comment: Interpretive data Oral anticoagulant therapeutic ranges: Venous thromboembolism prophylaxis or treatment: 2.0-3.0 CARDIOLOGY Standard range: 2.0-3.0 High-intensity range: 2.5-3.5 Refer to indication-specific guidelines for appropriate target ranges for prosthetic heart valve replacement. Current interpretive data was last revised on 2019. Blood 07/29/2024 11:0 1 AM GO GO DANCER 07/29/2024 11:32 AM GO GO DANCER Narrative [facility] - 07/29/2024 11:42 AM GO GO DANCER This lab is being obtained as part of a Kidney transplant evaluation, is time sensitive, and should only be drawn during the evaluation visit at [address]. Jossie King MD LAB BLOOD ORDERABL ES Final Result Performing Organization Address [facility] de Phone Number [facility] [place] [address] * Varicella Zoster IgG antibody Blood (07/29/2024 11:01 AM GO GO DANCER) Pathologist [facility] VZV IgG Reactive Reactive Comment:Reactive: Results diego ggest response to immunization or prior exposure to the virus. Blood 07/29/2024 11:0 1 AM GO GO DANCER 07/29/2024 11:33 AM GO GO DANCER Narrative [facility] - 07/29/2024 1:45 PM GO GO DANCER This lab is being obtained as part of a Kidney transplant evaluation, is time sensitive, and should only be drawn during the evaluation visit at [address]. Jossie King MD LAB MICROBIOLOGY - GENERAL ORDERABLES Final Result Performing Organization Address [facility] Co de Phone Number [facility] [place] [address] * (ABNORMAL) Uric acid (07/29/2024 11:01 AM GO GO DANCER) Uric acid 2.0(L) 3.0 - 8.0 mg/dL Blood 07/29/2024 11:0 1 AM GO GO DANCER 07/29/2024 11:33 AM GO GO DANCER Narrative [facility] 07/29/2024 12:10 PM GO GO DANCER This lab is being obtained as part of a Kidney transplant evaluation, is time sensitive, and should only be drawn during the evaluation visit at [address] Jossie King MD LAB BLOOD ORDERABL ES Final Result Performing Organization Address [facility] de Phone Number [facility] [place] [address] * (ABNORMAL) Phosphorus (07/29/2024 11:01 AM GO GO DANCER) Pathologist [facility] Phosphorus, pl 5.1(H) 2.3 - 4.5 mg/dL Blood 07/29/2024 11:0 1 AM GO GO DANCER 07/29/2024 11:33 AM GO GO DANCER Narrative [facility] 07/29/2024 12:10 PM GO GO DANCER This lab is being obtained as part of a Kidney transplant evaluation, is time sensitive, and should only be drawn during the evaluation visit at [address]. Jossie King MD LAB BLOOD ORDERABL ES Final Result Performing Organization Address [facility] Co de Phone Number [facility] [place] [address] * (ABNORMAL) PTH (07/29/2024 11:01 AM GO GO DANCER) [facility] PTH 444(H) 15 - 65 pg/mL Blood 07/29/2024 11:0 1 AM GO GO DANCER 07/29/2024 11:34 AM GO GO DANCER Narrative [facility] - 07/29/2024 12:02 PM GO GO DANCER This lab is being obtained as part of a Kidney transplant evaluation, is time sensitive, and should only be drawn during the evaluation visit at [address] Lab. Jossie King MD LAB BLOOD ORDERABL ES Final Result Performing Organization Address City/[facility]/[place] [address] * (ABNORMAL) Hemoglobin A1c (07/29/2024 11:01 AM GO GO DANCER) [facility] Hgb A1C 9.0(H) 4.0 - 5.6 % Estimated Average Glucose 212 mg/dL [facility] Comment: The ADA recommends reporting an estimated Average Glucose (eAG) with all Hemoglobin A1c results using the equation derived from a study of 507 normal and diabetic adults. Minority populations were underrepresented and children were not included. (Diabetes Care 2020; 43(S1): S66-S76). The eAG is not equivalent to a fasting glucose. Blood 07/29/2024 11:0 1 AM GO GO DANCER 07/29/2024 11:34 AM GO GO DANCER Narrative [facility] - 07/29/2024 11:53 AM GO GO DANCER This lab is being obtained as part of a Kidney transplant evaluation, is time sensitive, and should only be drawn during the evaluation visit at [address] Jossie King MD LAB BLOOD ORDERAB[place] [address] * Gamma GT (07/29/2024 11:01 AM GO GO DANCER) GGT 22 10 - 50 Units/L Blood 07/29/2024 11:0 1 AM GO GO DANCER 07/29/2024 11:33 AM GO GO DANCER Narrative [facility] - 07/29/2024 12:40 PM GO GO DANCER This lab is being obtained as part of a Kidney transplant evaluation, is time sensitive, and should only be drawn during the evaluation visit at [address]. Jossie King MD LAB BLOOD ORDERABL ES Final Result Performing Organization Address [facility] Co de Phone Number [facility] Department [place] [address] * (ABNORMAL) Ferritin (07/29/2024 11:01 AM GO GO DANCER) [facility] Ferritin 761(H) 30 - 400 ng/mL Blood 07/29/2024 11:0 1 AM GO GO DANCER 07/29/2024 11:33 AM GO GO DANCER Narrative [facility] - 07/29/2024 12:10 PM GO GO DANCER This lab is being obtained as part of a Kidney transplant evaluation, is time sensitive, and should only be drawn during the evaluation visit at [address]. Jossie King MD LAB BLOOD ORDERABL ES Final Result Performing Organization Address [facility] Co de Phone Number [facility] Department [place] [address] * (ABNORMAL) Lipid panel (07/29/2024 11:01 AM GO GO DANCER) [facility] Cholesterol 114 30 - 199 mg/dL Comment: [...] on 2018. Triglycerides 66 <=149 mg/dL [facility] [...] on 2018. HDL 29(L) >=40 mg/dL [facility] Comment: [...] 2018. LDL, calculated 71 <=129 mg/dL [facility] Comment: Interpretive Data Ages < or = 19 years Acceptable: <110 mg/dL Borderline high: 110-129 mg/dL High: >or= 130 mg/dL Ages > or = 20 years Optimal: <100 mg/dL Near optimal: 100-129 mg/dL Borderline high: 130-159 mg/dL High: >160 mg/dL Calculated using the Garcia LDL-C estimating [...] on 2024. Non-HDL Cholesterol 85 mg/dL [facility] Comment: [...] 4 [facility] Blood 07/29/2024 11:0 1 AM GO GO DANCER 07/29/2024 11:33 AM GO GO DANCER Narrative [facility] - 07/29/2024 12:10 PM GO GO DANCER This lab is being obtained as part of a Kidney transplant evaluation, is time sensitive, and should only be drawn during the evaluation visit at [facility] Lab. us Jossie King MD LAB BLOOD ORDERABL ES Final Result [facility] Department [place] [address] * (ABNORMAL) Comprehensive metabolic panel (07/29/2024 11:01 AM GO GO DANCER) Sodium 136 135 - 145 mmol/L Potassium, pl 4.6 3.3 - 4.9 mmol/L [facility] Chloride 93(L) 97 - 110 mmol/L [facility] CO2 26 22 - 32 mmol/L [facility] Anion gap 17(H) 2 - 15 mmol/L [facility] BUN 65(H) 6 - 25 mg/dL [facility] Creatinine 8.07(H) 0.80 - 1.30 mg/dL [facility] Glucose 280(H) 70 - 199 mg/dL [facility] [...] Calcium 9.4 8.5 - 10.3 mg/dL [facility] Bilirubin, total 0.3 0.1 - 1.2 mg/dL [facility] Protein, pl 7.2 6.5 - 8.5 g/dL [facility] Albumin 3.8 3.5 - 5.0 g/dL [facility] Alk phos 99 40 - 130 Units/L [facility] ALT 30 7 - 55 Units/L [facility] AST 31 10 - 50 Units/L [facility] Blood 07/29/2024 11:0 1 AM GO GO DANCER 07/29/2024 11:33 AM GO GO DANCER Narrative [facility] - 07/29/2024 12:10 PM GO GO DANCER This lab is being obtained as part of a Kidney transplant evaluation, is time sensitive, and should only be drawn during the evaluation visit at [facility] Lab. us Jossie King MD LAB BLOOD ORDERABL ES Final Result [facility] Department [place] [address] * (ABNORMAL) Oxalate (oxalic acid) (07/29/2024 10:53 AM GO GO DANCER) Oxalate 12.3(H) <=2.0 mcmol/L [facility] Comment: High value suggestive of Primary Hyperoxaluria. However, if the patient has chronic kidney disease (GFR<30 mL/min/1.73m2), plasma oxalate values up to 30 mcmol/L can be normal. The [facility] Hyperoxaluria Center is available to review case details and answer any questions regarding interpretation ([email or web address]; [phone]) ADDITIONAL INFORMATION This test has been modified from the management associate's instructions. Its performance characteristics were determined by [facility] in a manner consistent with CLIA requirements. This test has not been cleared or approved by the U.S. Food and Drug Administration. Test Performed by: [facility] [place] [address] Brand Protection Manager: Jairo Higgins Ph.D.; CLIA# [id number] Blood 07/29/2024 10:5 3 AM GO GO DANCER 07/29/2024 11:37 AM GO GO DANCER us Jossie King MD LAB BLOOD ORDERABL ES Final Result [facility] Department [place] [address] [facility] * (ABNORMAL) Urinalysis reflex to microscopic (07/29/2024 10:53 AM GO GO DANCER) Color, ur Yellow Yellow Clarity, ur Cloudy(A) Clear [facility] Specific gravity, ur 1.022 1.003 - 1.030 [facility] pH, urine 6.0 [facility] Comment: Interpretive Data U rine pH is [...] on 2017 Protein, ur ql 2+(A) Negative [facility] Glucose, ur ql 4+(A) Negative [facility] Ketones, ur Negative Negative [facility] Bilirubin, ur Negative Negative [facility] Blood, ur 3+(A) Negative [facility] Urobilinogen, ur <2.0 <2.0 mg/dL [facility] Nitrite, ur Negative Negative [facility] Leukocyte esterase, ur 2+(A) Negative [facility] UA reflex comment Reflex to microscopic UA will be performed. [facility] Urine 07/29/2024 10:5 3 AM GO GO DANCER 07/29/2024 11:27 AM GO GO DANCER Narrative [facility] - 07/29/2024 11:29 AM GO GO DANCER This lab is being obtained as part of a Kidney transplant evaluation, is time sensitive, and should only be drawn during the evaluation visit at [facility] Lab. Jossie King MD LAB URINE ORDERABL ES Final Result Performing Organization Address [facility] Co de Phone Number [facility] Department [place] [address] * (ABNORMAL) Urinalysis, microscopic only (07/29/2024 10:53 AM GO GO DANCER) WBC, ur 21-50(A) 0 - 5 /HPF RBC, ur >50(A) 0 - 2 /HPF [facility] Epithelial cells, squamous, ur 1-5 0 - 5 /HPF [facility] Bacteria, ur Trace(A) [facility] Mucous, ur Present(A) [facility] Hyaline casts, ur 1-5 0 - 10 /LPF [facility] Urine 07/29/2024 10:5 3 AM GO GO DANCER 07/29/2024 11:27 AM GO GO DANCER Jossie King MD LAB URINE ORDERABL ES Final Result Performing Organization Address City/[facility]/ZIP Co de Phone Number [facility] [place] [address] * (ABNORMAL) TSH (10/27/2023 2:30 AM GO GO DANCER) Thyroid Stimulating Hormone 13.20(H) 0.30 - 4.20 mcIUnit/mL Blood 10/27/2023 2:30 AM GO GO DANCER 10/27/2023 2:42 AM GO GO DANCER us Lorne Mcnulty MD LAB BLOOD ORDERABLES Final Result [facility] [address] Department of Laboratories [place], [place] [id number] from Last 3 Months or Most Recently Relevant to Health Maintenance
--- OUTSIDE RECORDS SUMMARY | 2024-10-16 15:34 | XMS_ITS | Encounter Summary ---
Author Organization [facility] Address [address], [place] [address] Phone Care Team Providers Care Teller Supervisor Name Role Phone Unavailable Primary Care Provider Unavailabl e Reason for Visit * Reason Comments Med Refill Encounter Details Date Type Department Care Team (Late st Contact Info) Description 02/24/2020 Refill [facility] [address] [id number] Leandro Reyes MD [address] [address] Social History Tobacco Use Types [...]
--- OUTSIDE RECORDS SUMMARY | 2024-10-16 15:34 | XMS_ITS | Clinical Summary ---
Author Organization [facility] Address [address] [place] [address] Care Team Providers Care Manager Floral Name Role Phone Aditya Castro MD Primary Care Provider [phone] Alondra Lambert RN Unavailable [phone] Shannon Brock MD, Hamlet P. Unavailable [phone] Leandro Reyes MD Unavailable [phone] Allergies Active Allergy Reactions Criticality Noted Date [...] PUMP: Continue Omnipod 5 insulin pump with Tongalcom G6 CGM at home settings: TIME BASAL [...] 1 tablet (25 mcg total) by mouth basketball scout before breakfast 30 tablet 1 11/04/19 24 [...] mg SL tablet 12/28/19 18 Active peg 968-kccbdddfnchw-di ycerin (ARTIFICAL TEARS) 1-0.2-0.2 % ophthalmic solution [...] coronary artery bypass grafting 10/2023 CAD in [place] artery 10/13/2023 Anemia 06/22/2022 Assessment & Plan (06/29/2022 10:12 AM [facility]): Stable, likely 2/2 anemia from ESRD, no [...] trend Hb. ESRD (end stage renal disease) ([facility]) 022 Assessment & Plan (06/29/2022 10:12 AM [facility]OUN[facility] LABOR[facility]): - Renal consulted, s/p CRRT in the ICU now back on PD. Tolerated well and nephrology following - Trialysis catheter removed - Continue vitamins for renal bone mineral disease. Assessment & Plan (06/28/2022 3:29 PM [facility]): - Renal consulted, s/p CRRT in the [...] 06/22/2022 Assessment & Plan (06/29/2022 10:12 AM [facility]): C/b cardiogenic shock requiring impella in the setting of cath and AHRF 2/2 pulmonary edema, now resolved. TTE demonstrating recovered EF 65% with grade I diastolic dysfunction. - metop as above - continue low dose losartan 12.5mg daily, ok per nephro. Tolerating well - volume management per PD Assessment & Plan (06/28/2022 3:29 PM [facility]): C/b cardiogenic shock requiring impella in the [...] 06/22/2022 Assessment & Plan (06/29/2022 10:12 AM FOUNDR[facility] LABORER [facility]): Converted to NSR overnight on 06/24. CHADsVASc of 4 not on anticoagulation prior to admission. - cardiology consulted - recommended ongoing rate control - holding off on a/c with high risk for bleeding while on DAPT - reduced metop to 25mg BID in the setting of hypotension, HR 70s NSR Assessment & Plan (06/28/2022 3:30 PM F[facility] LAB[facility]): Converted to NSR overnight on 06/24. CHADsVASc [...] AC. NSTEMI (non-ST elevated myocardial infarction) ( [facility]) 06/22/2022 Assessment & Plan (06/29/2022 10:11 AM [facility]): With recurrent chest pain post-cath. He has [...] today Assessment & Plan (06/28/2022 3:30 PM F[facility] LAB[facility]): With recurrent chest pain post-cath. He has [...] 06/22/2022 Assessment & Plan (06/29/2022 10:11 AM FOUN[facility] LAB[facility]): Secondary to NSTEMI, s/p Impella since removed on 06/10. Resolved. Assessment & Plan (06/23/2022 4:55 PM CDT): Secondary to NSTEMI, s/p Impella since removed on 06/10. Resolved. Assessment & Plan (06/22/2022 8:22 PM CDT): -Secondary to NSTEMI, s/p Impella since removed on 06/10. Acute hypoxemic respiratory failure 06/09/2022 Assessment & Plan (06/29/2022 10:12 AM [facility]): Secondary to ACS and flash pulmonary edema, [...] (06/10/2022): Added automatically from request for surgery [id number] Abnormal cardiovascular stress test 12/29/2020 Overview (12/29/2020): Added automatically from request for surgery [id number] 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n ative artery of [place] heart with stable angina pectoris ([facility]) [...] 01/18/2013 Assessment & Plan (06/29/2022 10:12 AM [facility]): A1c well controlled on admission. He uses [...] session Assessment & Plan (06/28/2022 3:28 PM [facility]): A1c well controlled on admission. He uses [...] Department Care Team Description 09/12/2024 Orders Only [facility] Medical Group Cardiology [address] [place] [id number] Lalit Machuca MD 08/06/2024 Documentation [facility] Transplant Kidney [address] Mailstop [phone] [place] [address] Alondra Lambert RN 07/30/2024 Telephone [facility] Transplant Kidney [address] Mailstop [phone] [place] [address] Alondra Lambert, RN 07/29/2024 1:15 PM [facility] Lab [facility] Advanced [facility] ([facility]) [address] [place] [address] End stage renal disease ([facility]/HCC) ([facility]); ESRD (end stage renal disease) (CMS/HCC) ([facility]) 07/29/2024 1:00 PM [facility] Office Visit [facility] Nephrology [address] [facility] Advanced Medicine 5th [place] [address] [place] [address] Radha Bartholomew MD Pre-transplant evaluation for kidney transplant (Primary Dx); End stage renal disease ([facility]/HCC) (HCC); Status post coronary artery bypass grafting; Status post aortic valve replacement; Type 1 diabetes mellitus with chronic kidney disease on chronic dialysis ([facility]) (HCC); CAD in [place] artery; Paroxysmal atrial fibrillation ([facility]) (HCC) 07/29/2024 11:02 AM [facility] - 07/29/2024 11:59 PM [facility] Hospital Encounter [facility] Pulmonary Rehabilitiation Program [address] [facility] Advanced Medicine [address] [place] [address] Discharge Disposition: Discharge to home or self care 07/29/2024 10:58 AM [facility] - 07/29/2024 11:59 PM [facility] Hospital Encounter [facility] Radiology [facility] ([facility]) [address] [place] [address] End stage renal disease ([facility]) ([facility]) Discharge Disposition: Discharge to home or self care 07/29/2024 10:55 AM [facility] - 07/29/2024 11:59 PM [facility] Hospital Encounter [facility] ([facility]) [address] [place] [address] End stage renal disease ([facility]) ([facility]) Discharge Disposition: Discharge to home or self care 07/29/2024 10:53 AM [facility] - 07/29/2024 11:59 PM [facility] Hospital Encounter [facility]) [address] [place] [address] End stage renal disease ([facility]) ([facility]) Discharge Disposition: Discharge to home or self care 07/29/2024 9:00 AM [facility] Social Work [facility] Transplant Center [address] [facility] Advance Medicine, 8th Floor, [place] [address] 07/29/2024 Telephone [facility] Transplant Kidney [address] Mailstop [phone] [place] [address] Alondra Lambert RN 07/26/2024 Telephone [facility] Transplant Kidney [address] Mailstop [phone] [place] [address] Elsie Cornejo 07/26/2024 Orders Only [facility] Transplant Kidney [address] [facility] [address] Mailstop [phone] [place] [address] Alondra Lambert, RN ESRD (end stage renal disease) (CMS/HCC) (HCC) (Primary Dx) 07/26/2024 Telephone [facility] Transplant Kidney [address] [facility] [address] Mailstop [phone] [place] [address] Alondra Lambert RN 07/22/2024 Telephone [facility] Transplant Kidney [address] [facility] [address] Mailstop [phone] [place] [address] Chris Richard from Last 3 Months Immunizations Immunization Administration Dates Next Due Influenza, [...] materials from doctor or pharmacy Never 12/01/2023 [facility] Utilities Answer Date Recorded In [...] week 08/01/2024 How often do you attend tenriism or episcopalian serv ices? Never 08/01/2024 Do you belong [...] in a custodial (including now)? No 10/16/2023 Housing Stability Vital Sign Answer Rubens e Recorded In the last 12 months, was t here a time when you were not able to pay the mortgage or rent on time? No 08/01/2024 In the past 12 months, how m any times have you moved where you were living? 1 08/01/2024 At any time in the past 12 [facility], were you homeless or living in a custodial (including now)? No 08/01/2024 Personal Safety Answer Date Recorded Have you ever been in or are you currently in a harmful physical or emotional relationship or is someone making you feel afraid or unsafe? 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 Male 3:42 AM [facility] Gender Identity Not on file Sexual Orientation Not on file Obstetrics History Last Filed Vital Signs Vital Sign Reading Time Taken Comments Blood Pressure 122/75 07/29/2024 1:00 PM [facility] Pulse 116 07/29/2024 1:00 PM [facility] Temperature 36.8 C (98.2 F) 07/29/2024 1:00 PM [facility] Respiratory Rate 16 12/01/2023 11:1 3 AM CDT Oxygen Saturation 96% 12/01/2023 11: 13 AM CDT Inhaled Oxygen Concentration - - Weight 121.2 kg (267 lb 1.6 oz) 07/29/2024 1:00 PM [facility] Height 177.8 cm (5' 10 ) 07/29/2024 1:00 PM [facility] Body Mass Index 38.32 07/29/2024 1:00 PM [facility] Plan of Treatment Health Maintenance Due Date [...] 01/27/2025 07/29/2024, 09/22, 06/04/2022, Additional history exists Pneumococcal vaccine <65 (3 of 3 - PCV20 or PCV21) 02/11/2025 02/12/2020, 12/30/2019, 08/26/2019 Lipid Panel 07/29/2025 07/29/2024, 09/22, 06/05/2022, Additional history exists eGFR 07/29/2025 07/29/2024, 10/19, 11/02/2023, Additional history exists Prostate Cancer Screening-PSA 07/29/2026 07/29/2024 DTaP/Tdap/Td Vaccine (4 - Td or Tdap) 10/21/2029 10/22/2019, 09/02/2017, 08/30/2016 Hepatitis B Screening Completed 07/29/2024 Hepatitis C Screening Completed 07/29/2024 , 03/23/2017, 03/26/2015 Medical Devices Implanted Type Area Program Aide Group Work Device Identifier Shelf Expiration Date Model / Serial / Lot Kyle Vascular Device Clsr Perclose Prostyle Sut-Mediatd Closure-Repair Sys 77975-06 - [id number] Implanted:Qty: 1 on 06/10/2022 by Champ Osborne MD PhD at [facility] Other - see comments Right: Femoral [employer] 01/19/2024 [id number] / / [id number] [employer] Mary Synergy Xd Monorail 2.5mm 48mm 144cm Delivery System 1 Access [id number] - [id number] Implanted:Qty: 1 on 06/07/2022 by Champ Osborne MD PhD at [facility] Stent [employer] Mary 10/27/2023 [id number] / / [id number] [employer] Mary Synergy Xd Monorail 3mm 24mm 144cm Delivery System 1 Access Port [id number] - [id number] Implanted:Qty: 1 on 06/07/2022 by Champ Osborne MD PhD at [facility] [employer] Mary 07/28/2023 [id number] / / [id number] [employer] Mary Synergy Xd Monorail 2.5mm 12mm 144cm Delivery System 1 Access [id number] - [id number] - [id number] Implanted:Qty: 1 on 06/07/2022 by Champ Osborne MD PhD at [facility] [employer] Mary 05/03/2023 [id number] / [id number] / [id number] Daig Mary [id number] Device Closure Angio-Seal Vip Bondek-Plus Polyglyd L70 Cm Od6 Fr Odsec.035 In Vascular - [id number] Implanted:Qty: 1 on 01/21/2021 by Hamlet Ortega Jr., MD at [facility] Left: Groin [employer] Mary [id number] / / Kyle Vascular Device Clsr Perclose Prostyle Sut-Mediatd Closure-Repair Sys 01143-90 - [id number] Implanted:Qty: 1 on 06/07/2022 by Champ Osborne MD PhD at [facility] [employer] 01/19/2024 [id number] Kyle Vascular Device Clsr Perclose Prostyle Sut-Mediatd Closure-Repair Sys 37993-92 - [id number] Implanted:Qty: 1 on 06/07/2022 by Champ Osborne MD PhD at [facility] [employer] 11/19/2023 [id number] / [id number] [employer] Access [employer] Power-Trialysis 13fr 30cm 3 Lumen Kink Resistance Symmetric Tip [id number] - [id number] Implanted:Qty: 1 on 06/07/2022 by Champ Osborne MD PhD at [facility] Right: Jugular Ramirez [employer] 07/20/2024 [id number] / / [id number] [employer] Impella Cp Percutaneous Left Ventricular Assist Device 5271-1905 - [id number] Implanted:Qty: 1 on 06/07/2022 by Champ Osborne MD PhD at [facility] Left: Ventricle [employer] / / Bard Access Systems Power-Trialysis 13fr 20cm 3 Lumen Short Term Dialysis Straight [id number] - [id number] Implanted:Qty: 1 on 06/18/2022 at [facility] Ramirez Chapito 07/20/2024 [id number] / / [id number] Rl [employer] Inc Screw Bone Slf Drl Full Thread Locking 3.5x14mm Ti 100.035.14 - [id number] Implanted:Qty: 6 on 10/17/2023 by Lorne Mcnulty MD at [facility] N/A: Sternum [employer] Inc 100.035.1 4 / / Rl [employer] Plate Bone Low Profile 6 Hole H Shape Sternum Ti 115.102.06 - [id number] Implanted:Qty: 2 on 10/17/2023 by Lorne Mcnulty MD at [facility] N/A: Sternum [employer] 115.102.0 6 / / Rl [employer] Plate Bone Low Profile 6 Hole O Shape Sternum Ti 115.104.06 - [id number] Implanted:Qty: 1 on 10/17/2023 by Lorne Mcnulty MD at [facility] N/A: Sternum [employer] 115.104.0 6 / / On-X Intrnl Valve Coronary Aortic Mechanical On X 25mm Onxane- - [id number] - [id number] Implanted:Qty: 1 on 10/17/2023 by Lorne Mcnulty MD at [facility] N/A: Heart On-X Intrnl 01/22/2028 ONXANE- / [id number] / Rl [employer] Screw Bone Slf Drl Full Thread Locking 3.5x18mm Ti 100.035.18 - [id number] Implanted:Qty: 12 on 10/17/2023 by Lorne Mcnulty MD at [facility] N/A: Sternum Rl [employer] 100.035.1 8 / / Explanted Type Area Program Aide Group Work Device Identifier Shelf Expiration Date Model / Serial / Lot Bard Peripheral Vascular Bard .25x.25in Troy Thk1.65mm Square P[employer] Ptfe [id number] - [id number] Explanted:Qty: 1 on 10/17/2023 by Lorne Mcnulty MD at [facility] N/A: Heart Bard Peripheral Vascular 05/18/2026 [id number] / / Procedures Procedure Name Priority Date/Time Associated Diagnosis Comments CARDIOLOGY DOCUMENT SCAN Routine 09/08/2024 11:26 AM [facility] CARDIOLOGY DOCUMENT SCAN Routine 09/07/2024 11:24 AM [facility] CARDIOLOGY DOCUMENT SCAN Routine 09/05/2024 11:06 AM [facility] HLA SOLID ORGAN TYPING REPORT 08/02/2024 9:04 AM [facility] SIX MINUTE WALK Routine 07/29/2024 2:46 PM [facility] End stage renal disease (CMS/HCC) (HCC) CT ABDOMEN PELVIS WO CONTRAST Schedule Routine, Read Routine (OP Routine) 07/29/2024 12:43 PM [facility] End stage renal disease (CMS/HCC) (HCC) XR ORTHOPANTOGRAM/PANOR EX Schedule Routine, Read Routine (OP Routine) 07/29/2024 11:44 AM [facility] End stage renal disease (CMS/HCC) (HCC) TYPE AND SCREEN Routine 07/29/2024 11:23 AM [facility] End stage renal disease (CMS/HCC) (HCC) ECG 12-LEAD Routine 07/29/2024 11:14 AM [facility] End stage renal disease (CMS/HCC) (HCC) ABO/RH Routine 07/29/2024 11:13 AM [facility] EGFR Routine 07/29/2024 11:01 AM [facility] End stage renal disease (CMS/HCC) (HCC) DIFFERENTIAL AUTO Routine 07/29/2024 11: 01 AM [facility] End stage renal disease (CMS/HCC) (HCC) CBC WITH AUTO DIFFERENTIAL Routine 07/29/2024 11:01 AM [facility] End stage renal disease (CMS/HCC) (HCC) COMPREHENSIVE METABOLIC PANEL Routine 07/29/2024 11:01 AM [facility] End stage renal disease (CMS/HCC) (HCC) CREATININE, URINE, RANDOM Routine 07/29/2024 11:01 AM [facility] End stage renal disease (CMS/HCC) (HCC) FERRITIN Routine 07/29/2024 11:01 AM [facility] End stage renal disease (CMS/HCC) (HCC) GAMMA GT Routine 07/29/2024 11:01 AM [facility] End stage renal disease (CMS/HCC) (HCC) HEMOGLOBIN A1C Routine 07/29/2024 11:01 AM [facility] End stage renal disease (CMS/HCC) (HCC) IRON PROFILE W/ IBC Routine 07/29/2024 1 1:01 AM [facility] End stage renal disease (CMS/HCC) (HCC) LIPID PANEL Routine 07/29/2024 11:01 AM [facility] End stage renal disease (CMS/HCC) (HCC) PTH Routine 07/29/2024 11:01 AM [facility] End stage renal disease (CMS/HCC) (HCC) APTT Routine 07/29/2024 11:01 AM [facility] End stage renal disease (CMS/HCC) (HCC) PHOSPHORUS Routine 07/29/2024 11:01 AM [facility] End stage renal disease (CMS/HCC) (HCC) PROTEIN, URINE, RANDOM Routine 07/29/2024 11:01 AM [facility] End stage renal disease (CMS/HCC) (HCC) PROTIME-INR Routine 07/29/2024 11:01 AM [facility] End stage renal disease (CMS/HCC) (HCC) URIC ACID Routine 07/29/2024 11:01 AM [facility] End stage renal disease (CMS/HCC) (HCC) PSA SCREEN Routine 07/29/2024 11:01 AM [facility] End stage renal disease (CMS/HCC) (HCC) LR HLA TYPING (CLASS I AND CLASS II) Routine 07/29/2024 11:01 AM [facility] End stage renal disease (CMS/HCC) (HCC) HLA CLASS I DNA (ABC) RECIPIENT Routine 07/29/2024 11:01 AM [facility] End stage renal disease (CMS/HCC) (HCC) HLA CLASS II DNA (DR, DQ, DP) RECIPIENT Routine 07/29/2024 11:01 AM [facility] End stage renal disease (CMS/HCC) (HCC) HLA ANTIBODY SCREEN - SAB (CLASS I AND CLASS II) Routine 07/29/2024 11:01 AM [facility] End stage renal disease (CMS/HCC) (HCC) HLA ANTIBODY SCREEN BY SINGLE ANTIGEN Routine 07/29/2024 11:01 AM [facility] End stage renal disease (CMS/HCC) (HCC) CMV, IGG Routine 07/29/2024 11:01 AM [facility] End stage renal disease (CMS/HCC) (HCC) MADIHA-MORRIS VIRUS VCA ANTIBODY PANEL Routine 07/29/2024 11:01 AM [facility] End stage renal disease (CMS/HCC) (HCC) HIV 1/2 ANTIBODY PLUS P24 ANTIGEN Routine 07/29/2024 11:01 AM [facility] End stage renal disease (CMS/HCC) (HCC) HSV 1 ANTIBODY, IGG Routine 07/29/2024 1 1:01 AM [facility] End stage renal disease (CMS/HCC) (HCC) HSV 2 ANTIBODY, IGG Routine 07/29/2024 1 1:01 AM [facility] End stage renal disease (CMS/HCC) (HCC) HEPATITIS B CORE ANTIBODY, TOTAL Routine 07/29/2024 11:01 AM [facility] End stage renal disease (CMS/HCC) (HCC) HEPATITIS B SURFACE ANTIBODY (IMMUNE STATUS) Routine 07/29/2024 11:01 AM [facility] End stage renal disease (CMS/HCC) (HCC) HEPATITIS B SURFACE ANTIGEN Routine 07/29/2024 11:01 AM [facility] End stage renal disease (CMS/HCC) (HCC) HEPATITIS C ANTIBODY Routine 07/29/2024 11:01 AM [facility] End stage renal disease (CMS/HCC) (HCC) RPR Routine 07/29/2024 11:01 AM [facility] End stage renal disease (CMS/HCC) (HCC) VARICELLA ZOSTER ANTIBODY, IGG Routine 07/29/2024 11:01 AM [facility] End stage renal disease (CMS/HCC) (HCC) URINALYSIS, MICROSCOPIC ONLY Routine 07/29/2024 10:53 AM [facility] End stage renal disease (CMS/HCC) (HCC) OXALATE Routine 07/29/2024 10:53 AM [facility] ESRD (end stage renal disease) (CMS/HCC) (HCC) URINALYSIS AND REFLEX TO MICROSCOPIC Routine 07/29/2024 10:53 AM [facility] End stage renal disease (CMS/HCC) (HCC) TSH Routine 10/27/2023 2:30 AM [facility] from Last 3 Months or Most Recently Relevant to Health Maintenance Results * Cardiology Document Scan (09/08/2024 11:26 AM F[facility] LAB[facility]) Anatomical Region Laterality Modality Other us Juan Christianson MD CV CARDIAC SERVICES PROCEDU RES Final Result * Cardiology Document Scan (09/07/2024 11:24 AM [facility] LAB[facility]) Anatomical Region Laterality Modality Other Juan Christianson MD CV CARDIAC SERVICES PROCEDU RES Final Result * Cardiology Document Scan (09/05/2024 11:06 AM [facility]) Anatomical Region Laterality Modality Other Lalit Machuca MD CV CARDIAC SERVICES PROCEDURES F inal Result * HLA Solid Organ Typing Report (08/02/2024 9:04 AM [facility]) Jossie King MD LAB GENETIC TESTIN G Final Result * Six Minute Walk - (07/29/2024 2:46 PM [facility]) Anatomical Region Laterality Modality PFT Narrative 07/29/2024 3:52 PM [facility] Table formatting from the original result was not included. Davey Pickard V., PATHOLOGY TRANSCRIPTIONIST on 07/29/2024 2:45 PM Table formatting from the original note was not included. 6 MINUTE WALK RESULTS Name: Juvenal Daigle : 1970 DOS: 07/29/2024 Diagnosis: ESRD/KTE PATHOLOGY TRANSCRIPTIONIST performed walk: Carmenza Pickard Rest: 1 min [...] Abdomen Pelvis WO Contrast (07/29/2024 12:43 PM [facility]) Anatomical Region Laterality Modality Body N/A Computed Tomogra phy 07/29/2024 1:04 PM [facility] Impressions 07/29/2024 1:04 PM [facility] 1. Moderate discontinuous atherosclerotic calcifications involve the [...] Teresa Rivera M.D. Narrative 07/29/2024 1:04 PM [facility] EXAMINATION: Computed tomography of the abdomen and [...] Maria Teresa Rivera M.D. 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 Electronically signed by: Julio Pinedo M.D. Narrative 07/29/2024 12:59 PM [facility] EXAMINATION: XR ORTHOPANTOGRAM/PANOREX HISTORY: Kidney Transplant Evaluation [...] by: Julio Pinedo M.D. Jossie King MD [facility] XR PROCEDURES Final Result * Type and screen (07/29/2024 11:23 AM [facility]) Maribel, indirect Negative ABO Rh A Positive ALESSANDRA AVILA Blood 07/29/2024 11:2 3 AM [facility] 07/29/2024 11:43 AM [facility] Narrative ALESSANDRA CARRION - 07/29/2024 12:45 PM [facility] Please draw the ABO and the Type and Screen as two separate blood draws with each stamped with the two different times stamps as this is a regulatory requirement for this patient to be listed for Kidney Transplant. This lab is being obtained as part of a Kidney transplant evaluation, is time sensitive, and should only be drawn during the evaluation visit at [facility] Lab. Has the patient had Daratumumab or Isatuximab in the past 6 months?->Unknown Jossie King MD LAB BLOOD BANK ERNESTO T ORDERABLES Final Result Performing Organization Address City/[facility]/ZIP Co de Phone Number ALESSANDRA [facility] Department [place] [address] * ECG 12 lead (07/29/2024 11:14 AM FOUN[facility] LAB[facility]) Pathologist [facility] Ventricular Rate EKG/Min 117 BPM [facility] Atrial Rate 117 BPM [facility]-Interval ([facility]) 144 ms [facility] [facility] QRS-Interval (MSEC) 126 ms [facility] QT-Interval (MSEC) 366 ms [facility] QTc 510 ms [facility] R [place] -40 degrees [facility] T [place] 147 degrees [facility] Diagnosis Poor data quality, interpretation may be [...] SAL M.D ([id number]) on 07/29/2024 3:38:41 PM [facility] 07/29/2024 11:1 4 AM [facility] 07/29/2024 3:38 PM [facility] Jossie King MD ECG ORDERABLES Fi nal Result Performing Organization Address City/[facility]/ZIP Co de Phone Number [facility] * ABO/Rh (07/29/2024 11:13 AM [facility]) Pathologist [facility] ABO Rh A Positive Blood 07/29/2024 11:1 3 AM [facility] 07/29/2024 2:45 PM [facility] Jossie King MD LAB BLOOD BANK ERNESTO T ORDERABLES Final Result ALESSANDRA [facility] Department [place] [address] * LR HLA Typing (Class I and Class II) (07/29/2024 11:01 AM [facility]) r-SSO H[facility]OT[facility]AC A First Allele A*03 HISTOTRAC [...] 07/30/24 [facility] Blood 07/29/2024 11:0 1 AM [facility] 08/02/2024 9:03 AM [facility] Narrative [facility] - 08/02/2024 9:03 AM [facility] DNA was extracted from whole blood or buccal cell specimens, and relevant genomic regions were amplified by polymerase chain reactions (PCR). HLA typing was performed on PCR amplicons using reverse sequence-specific oligonucleotide (r-SSO) and/or sequence-specific primers (SSP) based techniques. r-SSO and SSP are FDA approved as IVD tests and validated by the [facility] HLA Laboratory. Testing performed at the [facility], [address] [place] [address], 5th floor, [place], [address]. [facility] # [id number]. Dorothy Meade, Ph.D., Cashier Host/Hostess, HLA Laboratory Rell Samuels M.D., Ph.D., Business Office Manager, HLA Laboratory Licha Nieto, Ph.D., [place] Business Office Manager, [facility] Current methodology comment last revised on 04/25/17. [facility] LAB BLOOD ORDERABL ES Final Result Performing Organization Address City/[facility]/ZIP Co de Phone Number [facility] * Collection Task for HLA Typing 1 (07/29/2024 11:01 AM [facility]) HLA Class I DNA (ABC) Recipient Received Blood 07/29/2024 11:0 1 AM [facility] 07/29/2024 11:56 AM [facility] LAB BLOOD ORDERABL ES Final Result ALESSANDRA [facility] Department [place] [address] * Collection Task for HLA Antibody Screen (07/29/2024 11:01 AM [facility]) HLA Antibody Screen By Single Antigen Received Blood 07/29/2024 11:0 1 AM [facility] 07/29/2024 11:56 AM [facility] us Jossie King MD LAB BLOOD ORDERABL ES Final Result ALESSANDRA CARRION Billie [facility] [place] [address] * Collection Task for HLA Typing 2, Patient (07/29/2024 11:01 AM [facility]) HLA Class II DNA (DR, DQ, DP) Recipient Received Blood 07/29/2024 11:0 1 AM [facility] 07/29/2024 11:56 AM [facility] Jossie King MD LAB BLOOD ORDERABL ES Final Result Performing Organization Address [facility] Co de Phone Number ALESSANDRA CARRION Billie [facility] [place] [address] * (ABNORMAL) eGFR (07/29/2024 11:01 AM [facility]) Pathologist [facility] eGFR 7(L) >=60 mL/min/1. 73 m2 Comment: [...] reviewed 2021. Blood 07/29/2024 11:0 1 AM [facility] 07/29/2024 11:33 AM [facility] Jossie King MD LAB BLOOD ORDERABL ES Final Result [facility] [address] [facility] Department [place] [address] * Differential, auto (07/29/2024 11:01 AM [facility]) Neutrophil abs 3.1 1.5 - 6.5 K/cumm Imm gran abs 0.0 0.0 - 0.1 K/cumm [facility] Lymphocyte abs 1.1 0.8 - 3.3 K/cumm [facility] Monocyte abs 0.7 0.2 - 0.8 K/cumm [facility] Eosinophil abs 0.2 0.0 - 0.5 K/[facility]umm [facility] Basophil abs 0.0 0.0 - 0.1 K/cumm [facility] Neutrophil pct 60.3 % [facility] Comment: Interpretive Data Percent cell count reference ranges are not reported, since discordance with absolute values may lead to misinterpretation of CBC data. Current Interpretive Data was last revised on 2017. Imm gran pct 0.6 % [facility] Comment: Interpretive Data Percent cell count reference ranges are not reported, since discordance with absolute values may lead to misinterpretation of CBC data. Current Interpretive Data was last revised on 2017. Lymphocyte pct 21.4 % [facility] Comment: Interpretive Data Percent cell count reference ranges are not reported, since discordance with absolute values may lead to misinterpretation of CBC data. Current Interpretive Data was last revised on 2017. Monocyte pct 13.7 % [facility] Comment: Interpretive Data Percent cell count reference ranges are not reported, since discordance with absolute values may lead to misinterpretation of CBC data. Current Interpretive Data was last revised on 2017. Eosinophil pct 3.2 % [facility] Comment: Interpretive Data Percent cell count reference ranges are not reported, since discordance with absolute values may lead to misinterpretation of CBC data. Current Interpretive Data was last revised on 2017. Basophil pct 0.8 % [facility] Comment: Interpretive Data Percent cell count reference ranges are not reported, since discordance with absolute values may lead to misinterpretation of CBC data. Current Interpretive Data was last revised on 2017. Blood 07/29/2024 11:0 1 AM [facility] 07/29/2024 11:34 AM [facility] Jossie King MD LAB BLOOD ORDERABL ES Final Result Performing Organization Address City/[facility]/ZIP Co de Phone Number [facility] [place] [address] * PSA screen (07/29/2024 11:01 AM [facility]) PSA-Total 0.55 <=3.90 ng/mL Comment: Interpretive Data [...] revised 21. Blood 07/29/2024 11:0 1 AM [facility] 07/29/2024 11:33 AM [facility] Narrative [facility] - 07/29/2024 12:39 PM [facility] This lab is being obtained as part of a Kidney transplant evaluation, is time sensitive, and should only be drawn during the evaluation visit at [facility] 3C Lab. Jossie King MD LAB BLOOD ORDERABL ES Final Result Performing Organization Address City/[facility] Co de Phone Number [facility] [place] [address] * (ABNORMAL) Iron profile w/ IBC (07/29/2024 11:01 AM [facility]) Iron 62 50 - 150 mcg/dL TIBC 208(L) 250 - 400 mcg/dL [facility] Transferrin saturation 30 20 - 50 % [facility] Blood 07/29/2024 11:0 1 AM [facility] 07/29/2024 11:33 AM [facility] Narrative ALESSANDRA [facility] - 07/29/2024 12:10 PM [facility] This lab is being obtained as part of a Kidney transplant evaluation, is time sensitive, and should only be drawn during the evaluation visit at [address] Lab. Jossie King MD LAB BLOOD ORDERABL ES Final Result Performing Organization Address [facility] de Phone Number [facility] Department [place] [address] * HIV 1/2 Antibody plus p24 Antigen Blood (07/29/2024 11:01 AM [facility]) [facility] HIV 1/2 ab + p24 ag Nonreactive Nonreactive Comment:Nonreactive for HIV- 1 antigen and HIV-1/HIV-2 antibodies. No laboratory evidence of HIV infection. If acute HIV infection is suspected, consider testing for HIV-1 RNA. Current interpretive data was last revised on 22. Blood 07/29/2024 11:0 1 AM [facility] 07/29/2024 11:32 AM [facility] Narrative [facility] - 07/29/2024 12:13 PM [facility] This lab is being obtained as part of a Kidney transplant evaluation, is time sensitive, and should only be drawn during the evaluation visit at [address] Jossie King MD LAB MICROBIOLOGY - GENERAL ORDERABLES Final Result Performing Organization Address [facility] de Phone Number [facility] Department [place] [address] * (ABNORMAL) CMV, IgG Blood (07/29/2024 11:01 AM [facility]) [facility] CMV IgG Positive( A) Negative [...] CMV infection. Blood 07/29/2024 11:0 1 AM [facility] 07/29/2024 11:33 AM [facility] Luis APARICIO [facility] - 07/29/2024 1:44 PM [facility] This lab is being obtained as part of a Kidney transplant evaluation, is time sensitive, and should only be drawn during the evaluation visit at [facility] 3CAM Lab. us Jossie King MD LAB MICROBIOLOGY - GENERAL ORDERABLES Final Result [facility] Department [place] [address] * HLA Antibody Screen - SAB (Class I and Class II) (07/29/2024 11:01 AM [facility]) Class I Treatment EDTA HISTOTRAC Class I [...] DR52 HISTOTRAC Blood 07/29/2024 11:0 1 AM [facility] 08/02/2024 9:46 AM [facility] Narrative [facility] - 08/02/2024 9:46 AM [facility] Single-antigen HLA antibody screen is performed on serum samples using a method developed and validated by the [facility] HLA laboratory based on an FDA-approved IVD kit (LABScreen Single-Antigen, One [employer] [facility] [employer], [place], [place]). All patient serum samples are pretreated with EDTA before the screen to prevent complement interference. Additional serum treatments, such as adsorption and DTT treatment, may be performed as indicated. Interpretive comments: Low risk: MFI [id number]. Moderate risk: MFI [id number]. Increased risk: MFI >/= 5000. The presence [...] antigens to avoid. Testing performed at the [facility], [address] [place] [address], 5th floor, [place], [address]. [place] # [id number]. Dorothy Meade, Ph.D., Cashier Host/Hostess, HLA Laboratory Rell Samuels M.D., Ph.D., Business Office Manager, HLA Laboratory Licha Nieto, Ph.D., CLIA Business Office Manager, [facility] Current methodology and interpretive comments last revised on 09/15/2022. us Jossie King MD LAB BLOOD ORDERABL ES Final Result [facility] * (ABNORMAL) CBC with auto differential (07/29/2024 11:01 AM [facility]) [facility] WBC 5.1 3.8 - 9.9 K/cumm Hgb 11.5(L) 13.0 - 17.5 g/dL [facility] Hct 34.4(L) 38.9 - 50.3 % [facility] Plt 208 150 - 400 K/cumm [facility] MPV 10.8 9.1 - 12.3 fL [facility] RBC 3.76(L) 4.30 - 5.80 M/cumm [facility] MCV 91.5 81.3 - 96.4 fL [facility] MCH 30.6 27.1 - 33.3 pg [facility] MCHC 33.4 32.3 - 35.7 g/dL [facility] RDW CV 14.3 11.1 - 14.9 % [facility] RDW SD 47.9 35.7 - 48.1 fL [facility] NRBC abs 0.00 0.00 - 0.01 K/cumm [facility] Blood 07/29/2024 11:0 1 AM [facility] 07/29/2024 11:34 AM [facility] Narrative [facility] - 07/29/2024 11:45 AM [facility] This lab is being obtained as part of a Kidney transplant evaluation, is time sensitive, and should only be drawn during the evaluation visit at [address] Jossie King MD LAB BLOOD ORDERABL ES Final Result [facility] Department [place] [address] * Hepatitis C antibody Blood (07/29/2024 11:01 AM [facility]) Hep C Ab Nonreactive Nonreactive Comment:Antibodies to HCV no t detected. Does NOT exclude the possibility of recent exposure to HCV. Current interpretive data was last revised on 22 Blood 07/29/2024 11:0 1 AM [facility] 07/29/2024 11:32 AM [facility] Narrative [facility] - 07/29/2024 12:47 PM [facility] This lab is being obtained as part of a Kidney transplant evaluation, is time sensitive, and should only be drawn during the evaluation visit at [address] Lab. Jossie King MD LAB MICROBIOLOGY - GENERAL ORDERABLES Final Result Performing Organization Address [facility] Co de Phone Number [facility] [place] [address] * (ABNORMAL) Madiha-Morris virus (EBV) antibody panel Blood (07/29/2024 11:01 AM [facility]) Pathologist [facility] EBV nuclear Ab Positive(A) Negative Comment:Indicates the presen ce of detectable IgG antibody to EBV Nuclear Antigen. EBV VCA IgG Positive(A) Negative [facility] Comment:Indicates the presen ce of antibody; 90% of the adult population will have been infected with EBV sometime in the past. EBV VCA IgM Negative Negative [facility] Comment:No detectable IgM an tibody to EBV-VCA. A negative result indicates no current infection with EBV. If clinical suspicion of acute EBV infection is present, testing should be repeated after one week. EBV interp Past Infection [facility] Blood 07/29/2024 11:0 1 AM [facility] 07/29/2024 11:33 AM [facility] Narrative [facility] - 07/29/2024 1:43 PM [facility] This lab is being obtained as part of a Kidney transplant evaluation, is time sensitive, and should only be drawn during the evaluation visit at [facility] 3C Lab. Jossie King MD LAB MICROBIOLOGY - GENERAL ORDERABLES Final Result Performing Organization Address [facility] Co de Phone Number [facility] Department [place] [address] * Hepatitis B core antibody, total Blood (07/29/2024 11:01 AM F[facility] LABORER [facility]) [facility] Hep B core IgG/IgM Nonreactive Nonreactive Blood 07/29/2024 11:0 1 AM [facility] 07/29/2024 11:32 AM [facility] Narrative [facility] - 07/29/2024 12:47 PM [facility] This lab is being obtained as part of a Kidney transplant evaluation, is time sensitive, and should only be drawn during the evaluation visit at [address] Jossie King MD LAB MICROBIOLOGY - GENERAL ORDERABLES Final Result Performing Organization Address City/[facility]/ZIP Co de Phone Number [facility] [place] [address] * Protein, urine, random (07/29/2024 11:01 AM [facility] LAB[facility]) Protein, ur, quant 121.2 mg/dL Comment: Interpretive Data No reference range established. Current interpretive data was last revised 2019. Urine 07/29/2024 11:0 1 AM [facility] 07/29/2024 11:32 AM [facility] Narrative [facility] - 07/29/2024 12:18 PM [facility] This lab is being obtained as part of a Kidney transplant evaluation, is time sensitive, and should only be drawn during the evaluation visit at [address] Jossie King MD LAB URINE ORDERABL ES Final Result Performing Organization Address [facility] [place] [address] * Creatinine, urine, random (07/29/2024 11:01 AM [facility] LABORER [facility]) Creatinine Ur 167.1 mg/dL Comment: Interpretive Data No reference range established. Current interpretive data was last revised 2019. Urine 07/29/2024 11:0 1 AM [facility] 07/29/2024 11:32 AM [facility] Narrative [facility] - 07/29/2024 12:18 PM [facility] This lab is being obtained as part of a Kidney transplant evaluation, is time sensitive, and should only be drawn during the evaluation visit at [address] Jossie King MD LAB URINE ORDERABL ES Final Result Performing Organization Address City/[facility] Co de Phone Number [place] [address] * HSV 2 IgG Antibody Blood (07/29/2024 11:01 AM F[facility]DR[facility] LABORER [facility]) Pathologist [facility] HSV 2 IgG Nonreactive Nonreactive Comment: Interpretive Data 1. Nonreactive: No detectable IgG antibody to HSV-2. 2. Equivocal: Presence or absence of detectable antibodies to HSV-2 cannot be determined and the test should be repeated. 3. Reactive: Indicates presence of detectable IgG antibody to HSV-2. Current interpretive data was last revised on 2022. Blood 07/29/2024 11:0 1 AM [facility] 07/29/2024 11:33 AM [facility] Narrative [facility] - 07/29/2024 1:44 PM [facility] This lab is being obtained as part of a Kidney transplant evaluation, is time sensitive, and should only be drawn during the evaluation visit at [address] Lab. Jossie King MD LAB MICROBIOLOGY - GENERAL ORDERABLES Final Result ALESSANDRA [facility] One [facility] [place] [address] * (ABNORMAL) HSV 1 IgG Antibody Blood (07/29/2024 11:01 AM [facility] LAB[facility]) Pathologist [facility] HSV 1 IgG Reactive( A) Nonreactive Comment: Interpretive Data 1. Nonreactive: No detectable IgG antibody to HSV-1. 2. Equivocal: Presence or absence of detectable antibodies to HSV-1 cannot be determined and the test should be repeated. 3. Reactive: Indicates presence of detectable IgG antibody to HSV-1. Current interpretive data was last revised on 2016. Blood 07/29/2024 11:0 1 AM [facility] 07/29/2024 11:33 AM [facility] Narrative [facility] - 07/29/2024 1:44 PM [facility] This lab is being obtained as part of a Kidney transplant evaluation, is time sensitive, and should only be drawn during the evaluation visit at [address] Lab. Jossie King MD LAB MICROBIOLOGY - GENERAL ORDERABLES Final Result Performing Organization Address City/[facility] [place] [address] * RPR Blood (07/29/2024 11:01 AM [facility] LABORER [facility]) [facility] RPR Nonreactive Nonreactive Blood 07/29/2024 11:0 1 AM [facility] 07/29/2024 11:33 AM [facility] Narrative [facility] - 07/29/2024 12:34 PM [facility] This lab is being obtained as part of a Kidney transplant evaluation, is time sensitive, and should only be drawn during the evaluation visit at [address] Lab. Jossie King MD LAB MICROBIOLOGY - GENERAL ORDERABLES Final Result Performing Organization Address [facility] [place] [address] * Hepatitis B surface antibody (immune status) Blood (07/29/2024 11:01 AM [facility] LAB[facility]) [facility] HBsAb (immune status) Reactive Comment:This result is consi stent with immunity to Hepatitis B Virus when used in the setting of routine screening. Current interpretive data was last revised on 22 Blood 07/29/2024 11:0 1 AM [facility] 07/29/2024 11:32 AM [facility] Narrative [facility] - 07/29/2024 12:47 PM [facility] This lab is being obtained as part of a Kidney transplant evaluation, is time sensitive, and should only be drawn during the evaluation visit at [address] Lab. Jossie King MD LAB MICROBIOLOGY - GENERAL ORDERABLES Final Result Performing Organization Address City/[facility] Co de Phone Number [facility] [place] [address] * Hepatitis B Surface Antigen Blood (07/29/2024 11:01 AM FOUN[facility] LABORER [facility]) [facility] HepBsAg Nonreactive Nonreactive Blood 07/29/2024 11:0 1 AM [facility] 07/29/2024 11:32 AM [facility] Narrative ALESSANDRA [facility] - 07/29/2024 12:47 PM [facility] This lab is being obtained as part of a Kidney transplant evaluation, is time sensitive, and should only be drawn during the evaluation visit at [address] Jossie King MD LAB MICROBIOLOGY - GENERAL ORDERABLES Final Result Performing Organization Address [facility] Co de Phone Number [facility] Department [place] [address] * (ABNORMAL) aPTT (07/29/2024 11:01 AM [facility] LABORER [facility]) [facility] aPTT 61(H) 28 - 38 sec Comment: Interpretive Data Heparin therapeutic range: 66.0 - 100.0 seconds. Range based on correlation with therapeutic heparin activity range of 0.3 - 0.7 Units/mL. Current interpretive data was last revised on 2023. Blood 07/29/2024 11:0 1 AM [facility] 07/29/2024 11:32 AM [facility] Narrative [facility] - 07/29/2024 11:42 AM [facility] This lab is being obtained as part of a Kidney transplant evaluation, is time sensitive, and should only be drawn during the evaluation visit at [address] Jossie King MD LAB BLOOD ORDERABL ES Final Result Performing Organization Address [facility] Co de Phone Number [facility] Department [place] [address] * (ABNORMAL) Protime-INR (07/29/2024 11:01 AM FOUNDRY LABORER [facility]) [facility] PT 50.6(H) 9.7 - 13.0 sec INR 4.54(H) 0.90 - 1.20 [facility] Comment: Interpretive data Oral anticoagulant therapeutic ranges: Venous thromboembolism prophylaxis or treatment: 2.0-3.0 CARDIOLOGY Standard range: 2.0-3.0 High-intensity range: 2.5-3.5 Refer to indication-specific guidelines for appropriate target ranges for prosthetic heart valve replacement. Current interpretive data was last revised on 2019. Blood 07/29/2024 11:0 1 AM [facility] 07/29/2024 11:32 AM [facility] LAB[facility]ER [facility] Narrative [facility] - 07/29/2024 11:42 AM [facility]ORER [facility] This lab is being obtained as part of a Kidney transplant evaluation, is time sensitive, and should only be drawn during the evaluation visit at [address] Jossie King MD LAB BLOOD ORDERABL ES Final Result Performing Organization Address [facility] Co de Phone Number [facility] Department [place] [address] * Varicella Zoster IgG antibody Blood (07/29/2024 11:01 AM F[facility]ORER COREROOM) Pathologist [facility] VZV IgG Reactive Reactive Comment:Reactive: Results diego ggest response to immunization or prior exposure to the virus. Blood 07/29/2024 11:0 1 AM [facility] LABOR[facility] 07/29/2024 11:33 AM [facility] LABORER [facility] Narrative [facility] 07/29/2024 1:45 PM FOUNDRY LABORER COREROOM This lab is being obtained as part of a Kidney transplant evaluation, is time sensitive, and should only be drawn during the evaluation visit at [address] Jossie King MD LAB MICROBIOLOGY - GENERAL ORDERABLES Final Result Performing Organization Address City/[facility] Co de Phone Number [facility] Department [place] [address] * (ABNORMAL) Uric acid (07/29/2024 11:01 AM FOUNDRY LABORER COREROOM) Pathologist [facility] Uric acid 2.0(L) 3.0 - 8.0 mg/dL Blood 07/29/2024 11:0 1 AM [facility] 07/29/2024 11:33 AM [facility]OUNDR[facility] LABORER [facility]EROOM Narrative [facility] - 07/29/2024 12:10 PM FOUNDR[facility] LABORER COREROOM This lab is being obtained as part of a Kidney transplant evaluation, is time sensitive, and should only be drawn during the evaluation visit at [address] Jossie King MD LAB BLOOD ORDERABL ES Final Result Performing Organization Address City/[facility] de Phone Number [facility] [place] [address] * (ABNORMAL) Phosphorus (07/29/2024 11:01 AM FOUNDRY LABORER COREROOM) Phosphorus, pl 5.1(H) 2.3 - 4.5 mg/dL Blood 07/29/2024 11:0 1 AM [facility] 07/29/2024 11:33 AM [facility] LABORER [facility] Narrative [facility] 07/29/2024 12:10 PM [employer] LABORER [facility] This lab is being obtained as part of a Kidney transplant evaluation, is time sensitive, and should only be drawn during the evaluation visit at [address] Jossie King MD LAB BLOOD ORDERABL ES Final Result Performing Organization Address [facility] de Phone Number [facility] [place] [address] * (ABNORMAL) PTH (07/29/2024 11:01 AM FOUNDRY LABORER COREROOM) PTH 444(H) 15 - 65 pg/mL Blood 07/29/2024 11:0 1 AM [facility] 07/29/2024 11:34 AM [facility] LABORER [facility] Narrative [facility] - 07/29/2024 12:02 PM [facility] LAB[employer] This lab is being obtained as part of a Kidney transplant evaluation, is time sensitive, and should only be drawn during the evaluation visit at [address] Jossie King MD LAB BLOOD ORDERABL ES Final Result Performing Organization Address [facility] Co de Phone Number [facility] [place] [address] * (ABNORMAL) Hemoglobin A1c (07/29/2024 11:01 AM FOUNDRY LABORER COREROOM) Pathologist [facility] Hgb A1C 9.0(H) 4.0 - 5.6 % Estimated Average Glucose 212 mg/dL [facility] Comment: The ADA recommends reporting an estimated Average Glucose (eAG) with all Hemoglobin A1c results using the equation derived from a study of 507 normal and diabetic adults. Minority populations were underrepresented and children were not included. (Diabetes Care 2020; 43(S1): S66-S76). The eAG is not equivalent to a fasting glucose. Blood 07/29/2024 11:0 1 AM [facility] 07/29/2024 11:34 AM [employer] LABORER [facility] Narrative [facility] - 07/29/2024 11:53 AM [facility] LAB[employer]ER [facility] This lab is being obtained as part of a Kidney transplant evaluation, is time sensitive, and should only be drawn during the evaluation visit at [address] Jossie King MD LAB BLOOD ORDERABL ES Final Result Performing Organization Address City/[facility]/[place] [address] * Gamma GT (07/29/2024 11:01 AM FOUNDRY LABORER COREROOM) [facility] GGT 22 10 - 50 Units/L Blood 07/29/2024 11:0 1 AM [employer] LABORER [facility] 07/29/2024 11:33 AM [employer]OUNDR[facility] LABORER [facility]EROOM Narrative [facility] - 07/29/2024 12:40 PM [employer]DR[facility] LABORER [facility] This lab is being obtained as part of a Kidney transplant evaluation, is time sensitive, and should only be drawn during the evaluation visit at [address] Jossie King MD LAB BLOOD ORDERABL ES Final Result [facility] [place] [address] * (ABNORMAL) Ferritin (07/29/2024 11:01 AM FOUNDRY LABORER COREROOM) Ferritin 761(H) 30 - 400 ng/mL Blood 07/29/2024 11:0 1 AM [facility] LABORER [facility] 07/29/2024 11:33 AM [facility]OUNDR[facility] LABORER [facility] Narrative [facility] - 07/29/2024 12:10 PM [employer]OUNDRY LABORER COREROOM This lab is being obtained as part of a Kidney transplant evaluation, is time sensitive, and should only be drawn during the evaluation visit at [facility]. us Jossie King MD LAB BLOOD ORDERABL ES Final Result [facility] Department [place] [address] * (ABNORMAL) Lipid panel (07/29/2024 11:01 AM FOUNDRY LABORER COREROOM) Cholesterol 114 30 - 199 mg/dL Comment: [...] revised on 2018. Triglycerides 66 <=149 mg/dL [facility] Comment: Interpretive Data Ages [...] on 2018. HDL 29(L) >=40 mg/dL [facility] Comment: Interpretive Data Ages < [...] 2018. LDL, calculated 71 <=129 mg/dL [facility] Comment: Interpretive Data Ages < [...] NCEP Expert Panel. Circulation 2004;110:227 3. Jose Mata al. TYRONE Cardiol. 2019December 19;5(5):540-548. doi: 10.1001/jamacardio.2020.0013 Current Interpretive Data was last revised on 2024. Non-HDL Cholesterol 85 mg/dL [facility] Comment: Interpretive Data Ages < [...] last revised on 2018. Chol/HDL ratio 4 [facility] Blood 07/29/2024 11:0 1 AM [facility] LABORER [facility] 07/29/2024 11:33 AM [facility]OUNDR[facility] LABORER [facility]EROOM Narrative [facility] - 07/29/2024 12:10 PM [facility]OUNDR[facility] LABORER [facility]EROOM This lab is being obtained as part of a Kidney transplant evaluation, is time sensitive, and should only be drawn during the evaluation visit at [facility] Lab. Jossie King MD LAB BLOOD ORDERABL ES Final Result [facility] Department [place] [address] * (ABNORMAL) Comprehensive metabolic panel (07/29/2024 11:01 AM FOUNDRY LABORER COREROOM) Sodium 136 135 - 145 mmol/L Potassium, pl 4.6 3.3 - 4.9 mmol/L [facility] Chloride 93(L) 97 - 110 mmol/L [facility] CO2 26 22 - 32 mmol/L [facility] Anion gap 17(H) 2 - 15 mmol/L [facility] BUN 65(H) 6 - 25 mg/dL [facility] Creatinine 8.07(H) 0.80 - 1.30 mg/dL [facility] Glucose 280(H) 70 - 199 mg/dL [facility] Comment: Interpretive Data Fasting [...] 2022. Calcium 9.4 8.5 - 10.3 mg/dL [facility] Bilirubin, total 0.3 0.1 - 1.2 mg/dL [facility] Protein, pl 7.2 6.5 - 8.5 g/dL [facility] Albumin 3.8 3.5 - 5.0 g/dL [facility] Alk phos 99 40 - 130 Units/L [facility] ALT 30 7 - 55 Units/L [facility] AST 31 10 - 50 Units/L [facility] Blood 07/29/2024 11:0 1 AM [facility] LABORER [facility] 07/29/2024 11:33 AM FOUNDRY LABORER COREROOM Narrative [facility] - 07/29/2024 12:10 PM [facility]OUNDR[facility] LABORER [facility]OM This lab is being obtained as part of a Kidney transplant evaluation, is time sensitive, and should only be drawn during the evaluation visit at [facility] Lab. us Jossie King MD LAB BLOOD ORDERABL ES Final Result [facility] Department [place] [address] * (ABNORMAL) Oxalate (oxalic acid) (07/29/2024 10:53 AM FOUNDRY LABORER COREROOM) Oxalate 12.3(H) <=2.0 mcmol/L [facility] Comment: High value suggestive of Primary Hyperoxaluria. However, if the patient has chronic kidney disease (GFR<30 mL/min/1.73m2), plasma oxalate values up to 30 mcmol/L can be normal. The [facility] Hyperoxaluria Center is available to review case details and answer any questions regarding interpretation ([email or web address] [phone]) ADDITIONAL INFORMATION This test has been modified from the manager digital ad operations's instructions. Its performance characteristics were determined by [facility] in a manner consistent with CLIA requirements. This test has not been cleared or approved by the U.S. Food and Drug Administration. Test Performed by: [facility] - [address] [address] Patient Accounts Specialist: Jairo Higgins Ph.D.; CLIA# [id number] Blood 07/29/2024 10:5 3 AM [facility] LABORER [facility] 07/29/2024 11:37 AM FOUNDRY LABORER [facility]EROOM Jossie King MD LAB BLOOD ORDERABL ES Final Result [facility] Department [place] [address] [facility] * (ABNORMAL) Urinalysis reflex to microscopic (07/29/2024 10:53 AM FOUNDRY LABORER COREROOM) Color, ur Yellow Yellow Clarity, ur Cloudy(A) Clear [facility] Specific gravity, ur 1.022 1.003 - 1.030 [facility] pH, urine 6.0 [facility] Comment: Interpretive Data U rine pH is affected by diet, medications, systemic acid-base disturbances, and renal tubular function. pH may affect urinary stone formation. For example, urine pH below 6.0 may help reduce the tendency for calcium phosphate stones and pH greater than 6.0 may reduce the tendency for uric acid stone formation. Source: [facility] Current Interpretive Data was last revised on 2017 Protein, ur ql 2+(A) Negative [facility] Glucose, ur ql 4+(A) Negative [facility] Ketones, ur Negative Negative [facility] Bilirubin, ur Negative Negative [facility] Blood, ur 3+(A) Negative [facility] Urobilinogen, ur <2.0 <2.0 mg/dL [facility] Nitrite, ur Negative Negative [facility] Leukocyte esterase, ur 2+(A) Negative [facility] UA reflex comment Reflex to microscopic UA will be performed. [facility] Urine 07/29/2024 10:5 3 AM [facility]DR[facility] LABORER [facility] 07/29/2024 11:27 AM FOUNDRY LABORER [facility]EROOM Narrative [facility] - 07/29/2024 11:29 AM FOUNDR[employer] LABORER [facility]EROOM This lab is being obtained as part of a Kidney transplant evaluation, is time sensitive, and should only be drawn during the evaluation visit at [facility] Lab. Jossie King MD LAB URINE ORDERABL ES Final Result Performing Organization Address [facility] de Phone Number [facility] [place] [address] * (ABNORMAL) Urinalysis, microscopic only (07/29/2024 10:53 AM FOUNDRY LABORER COREROOM) WBC, ur 21-50(A) 0 - 5 /HPF RBC, ur >50(A) 0 - 2 /HPF [facility] Epithelial cells, squamous, ur 1-5 0 - 5 /HPF [facility] Bacteria, ur Trace(A) [facility] Mucous, ur Present(A) [facility] Hyaline casts, ur 1-5 0 - 10 /LPF [facility] Urine 07/29/2024 10:5 3 AM [employer]DR[facility] LABORER [facility] 07/29/2024 11:27 AM FOUNDRY LABORER COREROOM us Jossie King MD LAB URINE ORDERABL ES Final Result Performing Organization Address [facility] de Phone Number [facility] Department [place] [address] * (ABNORMAL) TSH (10/27/2023 2:30 AM FOUNDRY LABORER COREROOM) Thyroid Stimulating Hormone 13.20(H) 0.30 - 4.20 mcIUnit/mL Blood 10/27/2023 2:30 AM [employer]OUNDR[facility] LABORER [facility]OM 10/27/2023 2:42 AM FOUNDRY LABORER COREROOM us Lorne Mcnulty MD LAB BLOOD ORDERABLES Final Result Performing Organization Address [facility] Co de Phone Number [facility] [address] Department [place] [address] from Last 3 Months or Most Recently Relevant to Health Maintenance Insurance [employer] MEDICARE SOLUTIONS [place] [id number] [facility] MEDICARE SOLUTIONS TRANSPLANT [employer] MEDICARE RISK [place] [employer] [place] [address] Advance Directives For more information, please contact: [phone] * Full Code (Latest Code Status on File) Date Activated Date Inactivated Comments 10/13/2023 11:32 PM 11/03/2023 11:42 PM * Full Code Date Activated Date Inactivated Comments 06/05/2022 6:17 AM 06/29/2022 6:20 PM * Full Code Date Activated Date Inactivated Comments 06/05/2022 4:43 AM 06/05/2022 4:43 AM * Full Code Date Activated Date Inactivated Comments 06/04/2022 9:55 PM 06/05/2022 4:43 AM Care Teams Manager Floral Relationship Specialty Start Date End Date Aditya Castro MD [address] [facility] [place] [address] PCP - General 10/17/19 Alondra Lambert, RN [address] [facility] [address] [place] [address] Alcohol Law Enforcement Agent 03/06/24 Hamlet Ortega Jr., MD [address] [place] [address] Consulting Physician Cardiovascular Disease 05/10/24 Leandro Reyes MD [address] [facility] [address] [place] [address] Consulting Physician Nephrology 07/30/24
--- OUTSIDE RECORDS SUMMARY | 2024-10-16 15:36 | XMS_ITS | Encounter Summary ---
Author Organization [facility] [employer]ORMAM[facility] Management [facility] Address [address] [place] [address] Care Team Providers Care Police Detective Name Role Phone Aditya Castro MD Primary Care Provider [phone] Encounter Details Date Type Department Care Team (Late st Contact Info) Description 04/15/2019 Telephone [facility] Oncology and Hematology - [place] [address] [facility] [address] [place] [address] Fernando Schmid MD [address] [facility] [address] [place] [address] Social History Tobacco Use Types [...] filedocumented in this encounter Care Teams Police Detective Relationship Specialty Start Date End Date Aditya Castro MD PCP - General Student in an Organized Health Care Education/Training Program 09/11/18 documented as of this encounter
--- OUTSIDE RECORDS SUMMARY | 2024-10-16 15:36 | XMS_ITS | Encounter Summary ---
Author Organization [facility] Address [address] [place] [address] Care Team Providers Care Dot Net Developer Name Role Phone Matthew Aditya Ellison Primary Care Provider Unavailab le Reason for Visit * Reason Onset Date Comments Med Question 06/25/2019 Encounter Details Date Type Department Care Team (Late st Contact Info) Description 06/25/2019 Telephone [facility] Dermatology [address] [place] [address] Finn Kramer MD [address] [place] [address] Med Question Social History Tobacco Use Types [...] pt he is asking that we call [facility] at [phone] and talk to them about the compression stockings. I called and spoke with Kashif at [facility] and gave clarification the the mmHg I let them know that they should Be the 20-30mmHg . He understood and will get them ready for pt. Anali Connelly SPECIALIST * Telephone Encounter - Theodore Huerta - 06/25/2019 10:40 AM CST Pt called saying patient pharmacy just needs clarification of a number on the prescription for compression socks. Please Advise. SPECIALIST documented in this encounter Plan of Treatment Not on file documented as of this encounter Visit Diagnoses Not on filedocumented in this encounter Care Teams Dot Net Developer Relationship Specialty Start Date End Date Aditya Castro Update Information PCP - General 03/06/19 documented as of this encounter
--- OUTSIDE RECORDS SUMMARY | 2024-10-16 15:36 | XMS_ITS | CONTINUITY OF CARE DOCUMENT ---
Author Name archana magaña Address Unknown Organization [facility] Address [id number] [place] [address] [address] [place] [address] Phone [phone] Care Team Providers Care Sephora Product Consultant Name Role Phone Shannon ARNOLD, Hamlet Unavailable STEPHANIE CORREA MD Unavailable STEPHANIE CORREA MD Unavailable [phone] PROBLEMS Condition Status Date Provider Notes CABG post active Annemarie Connelly RN Valve replacement active Annemarie Connelly RN oil heaterman anticoagulant therapy active Annemarie Connelly RN Atrial Fibrillation active Hamlet Ortega MD 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 GFR <15 active Hamlet Ortega MD Valve Surgery active Hamlet Ortega MD (Stat us post) C A B G: active Hamlet Ortega MD (Status post) Aortic insufficiency active Hamlet Gonzalez D Overweight active Hamlet Ortega MD Dizziness active Hamlet Ortega MD Coronary Heart Disease active ? Hamlet Ortega MD Hypertension active ? Hamlet Ortega MD Acute deep venous thrombosis of leg, right active Hamlet Ortega MD Sleep apnea, obstructive active Hamlet cantu MD HTN essential active Hamlet Ortega MD Hyperlipidemia active Hamlet Ortega MD Diabetes, Type 1 active Hamlet Ortega MD Chest pain-type to be determined active Bayron Ortega MD Dyspnea on exertion active Hamlet Ortega MD Shortness of breath active Hamlet Ortega MD Coronary artery disease active Hamlet guzman MD Family History of Hypertension: active ? Michael Ortega MD ENCOUNTERS Date Type Provider Location Encounter Diag nosis - In-person encounter Office Visit Hamlet Ortega MD [facility] Atrial Fibrillation - In-person encounter Office Visit Hamlet Ortega MD [facility] - In-person encounter Office Visit Hamlet Ortega MD [facility] C A B G:Valve SurgeryCKD stage ESRD on dialysis GFR <15 - In-person encounter Office Visit Hamlet Ortega MD [facility] - In-person encounter Office Visit Hamlet Ortega MD [facility] - In-person encounter Office Visit Hamlet Ortega MD [facility] OverweightAortic insufficiency - In-person encounter Office Visit Hamlet Ortega MD [facility] - In-person encounter Office Visit Hamlet Ortega MD [facility] - In-person encounter Office Visit Hamlet Ortega MD [facility] - In-person encounter Office Visit Hamlet Ortega MD [facility] - In-person encounter Office Visit Hamlet Ortega MD [facility] - In-person encounter Office Visit Hamlet Ortega MD [facility] - In-person encounter Office Visit Hamlet Ortega MD [facility] - In-person encounter Office Visit Hamlet Ortega MD [facility] - In-person encounter Office Visit Hamlet Ortega MD [facility] - In-person encounter Office Visit Hamlet Ortega MD [facility] - In-person encounter Office Visit Hamlet Ortega MD [facility] - In-person encounter Office Visit Hamlet Ortega MD [facility] - In-person encounter Office Visit Hamlet Ortega MD [facility] Dizziness - In-person encounter Office Visit Hamlet Ortega MD [facility] - In-person encounter Office Visit Hamlet Ortega MD [facility] - In-person encounter Office Visit Hamlet Ortega MD [facility] - In-person encounter Office Visit Hamlet Ortega MD [facility] Family History of Hypertension:Coronary artery diseaseShortness of breathDyspnea on exertionChest pain-type to be determinedDiabetes, Type 1HyperlipidemiaHTN essentialSleep apnea, obstructiveAcute deep venous thrombosis of leg, rightHypertensionCoronar y Heart Disease VITAL SIGNS Date Observation Value Provider Body Mass Index (Ratio) 37.76 kg/m2 Michael Ortega MD blood pressure, diastolic 82 mm[Hg] Glo nkLogedu blood pressure, systolic 140 mm[Hg] Lavern Wallogedu blood pressure, cuff size large As nohelia Benjamin blood pressure, diastolic 82 mm[Hg] As nohelia Benjamin blood pressure, systolic 140 mm[Hg] Hussein Benjamin oxygen saturation, oximetry 93 % Aury Benjamin pulse rate 120 /min Aury Benjamin weight E&M 263.2 [lb_av] Aury Benjamin Body Mass Index (Ratio) 40.31 kg/m2 Michael Ortega MD blood pressure, diastolic 79 mm[Hg] [facility]als[facility], systolic 169 mm[Hg] [facility], oximetry 100 % [facility] pulse rate 94 /min [facility] weight E&M 281 [lb_av] Lexus [facility] height E&M 70 [in_i] Lexus [facility] blood pressure, diastolic 101 mm[Hg] [facility] Major blood pressure, systolic 157 mm[Hg] Vanna tanisha Major oxygen saturation, oximetry 96 % [facility] Major pulse rate 122 /min [facility] Major blood pressure, cuff size regular [facility] Major Body Mass Index (Ratio) 38.62 kg/m2 [facility] on Major weight in kilograms E&M 122.11 kg [facility] on Major weight E&M 269.2 [lb_av] [facility] Major height E&M 70 [in_i] [facility] Major height in centimeters E&M 177.80 cm [facility] Major Body Mass Index (Ratio) 38.16 kg/m2 [...] Jar ret pulse rate 79 /min Omari oxygen saturation, oximetry 98 % respiratory rate E&M 18 /min weight E&M 267 [lb_av] Omari height E&M 70 [in_i] Omari y Body Mass Index (Ratio) 37.88 kg/m2 Michael Ortega MD blood pressure, diastolic 81 mm[Hg] An tami Connelly blood pressure, systolic 151 mm[Hg] Nadine Connelly oxygen saturation, oximetry 98 % Saniya Connlely pulse rate 77 /min Saniya Connelly weight E&M 264 [lb_av] Saniya Connelly blood pressure, cuff size large An tami Connelly height E&M 70 [in_i] Saniya Connelly Body Mass Index (Ratio) 38.16 kg/m2 Michael Ortega MD blood pressure, cuff size regular Ja rret blood pressure, diastolic 79 mm[Hg] Ja rret blood pressure, systolic 148 mm[Hg] Jar ret pulse rate 79 /min Omari respiratory rate E&M 12 /min Omari oxygen saturation, oximetry 97 % Omari weight E&M 266 [lb_av] Omari y height E&M 70 [in_i] Omari Body Mass Index (Ratio) 37.59 kg/m2 Michael Ortega MD blood pressure, cuff size large Ja prosper blood pressure, diastolic 95 mm[Hg] Ja prosper blood pressure, systolic 160 mm[Hg] Adri ling pulse rate 75 /min Omari respiratory rate E&M 12 /min Omari oxygen saturation, oximetry 98 % Omari weight E&M 262 [lb_av] Omari height E&M 70 [in_i] Omari y Body Mass Index (Ratio) 39.74 kg/m2 Michael Ortega MD blood pressure, diastolic 65 mm[Hg] Glo nkLog blood pressure, systolic 129 mm[Hg] Lavern kLogedu blood pressure, diastolic 65 mm[Hg] Marion Ferrera [...] Hay respiratory rate E&M 16 /min Nida davis pulse rate 70 /min Nida Hay weight [...] MD blood pressure, diastolic 69 mm[Hg] Glo nkLogic blood pressure, systolic 140 mm[Hg] Lavern [...] Holly blood pressure, diastolic 66 mm[Hg] Cy verna Avni blood pressure, systolic 150 mm[Hg] Aida kathy Holly oxygen saturation, oximetry 96 % Karley Holly pulse rate 60 /min Karley kramer respiratory rate E&M 18 /min Karley Holly weight E&M 292 [lb_av] Karley Campbel l height E&M 70 [in_i] Karley Campbel l Body Mass Index (Ratio) 42.18 kg/m2 Michael Ortega MD blood pressure, diastolic 73 mm[Hg] Ra rut Ortega MD blood pressure, systolic 149 mm[Hg] Bayron Ortega MD oxygen saturation, oximetry 96 % Nguyễn Subramanian respiratory rate E&M 18 /min Terrell Subramanian pulse rate 59 /min Nguyễn nolandd weight E&M 294 [lb_av] Nguyễn Romero madison height E&M 70 [in_i] Nguyễn Romero madison Body Mass Index (Ratio) 41.18 kg/m2 Michael Ortega MD blood pressure, diastolic 79 mm[Hg] Cy maddie Avni blood pressure, systolic 141 mm[Hg] Aida kathy Avni blood pressure, cuff size regular Cy maddie Avni pulse rate 57 /min Karley Mkbel l respiratory rate E&M 16 /min Karley Holly oxygen saturation, oximetry 98 % Karley Holly weight E&M 287 [lb_av] Karley Campbel l height E&M 70 [in_i] Karley Campbel l Body Mass Index (Ratio) 38.31 kg/m2 Michael Ortega MD blood pressure, diastolic 77 mm[Hg] Cy ntflorecitaa Avni blood pressure, systolic 148 mm[Hg] Aida silviohayden Holly blood pressure, cuff size regular Cy maddie Holly respiratory rate E&M 16 /min Karley Holly pulse rate 83 /min Karley Campbel l oxygen saturation, oximetry 97 % Karley Holly weight E&M 267 [lb_av] Karley kramer height E&M 70 [in_i] Karley kramer Body Mass Index (Ratio) 38.16 kg/m2 Michael Ortega MD blood pressure, cuff size regular Cy maddie Holly blood pressure, diastolic 58 mm[Hg] Cy maddie Holly blood pressure, systolic 148 mm[Hg] Aida Holly oxygen saturation, oximetry 98 % Karlye Holly respiratory rate E&M 16 /min Karleykathy Holly pulse rate 53 /min Karley kramer weight E&M 266 [lb_av] Karley kramer height E&M 70 [in_i] Karley kramer Body Mass Index (Ratio) 37.73 kg/m2 Michael Ortega MD respiratory rate E&M 16 /min Karley Holly blood pressure, cuff size regular Cy maddie Holly blood pressure, diastolic 62 mm[Hg] Chad Holly blood pressure, systolic 140 mm[Hg] Aida Holly oxygen saturation, oximetry 97 % Karley Holly pulse rate 73 /min Karley kramer weight E&M 263 [lb_av] Karley kramer height E&M 70 [in_i] Karley kramer Body Mass Index (Ratio) 38.16 kg/m2 Michael Ortega MD blood pressure, diastolic, standing 40 mm [Hg] Kimber Connelly blood pressure, systolic, standing 120 mm [Hg] Kimber Connelly blood pressure, diastolic, sitting 50 mm[ Hg] Kimber Connelly blood pressure, systolic, sitting 132 mm[ Hg] Kimber Connelly blood pressure, cuff size large Cr ystal Godwin blood pressure, diastolic 50 mm[Hg] Cr [...] blood pressure, systolic 154 mm[Hg] Aida kathy Avni oxygen saturation, oximetry 98 % Karley Holly respiratory rate E&M 18 /min Karley Holly pulse rate 65 /min Karley Terrazasbel l weight E&M 275 [lb_av] Karley Campbel l height E&M 70 [in_i] Karley Mkbel [...] Karley Holly pulse rate 65 /min Karley kramer weight E&M 263 [lb_av] Karley Reese l height E&M 70 [in_i] Karley Reese l Body Mass Index (Ratio) 38.77 kg/m2 Michael Ortega MD blood pressure, resting Yes Rehana Navas Burton blood pressure, diastolic 64 mm[Hg] Nisa Marsh Burton blood pressure, systolic 154 mm[Hg] Garima Haddad Micheal oxygen saturation, oximetry 98 % Hai Burton respiratory rate E&M 18 /min Brooke mare Burton pulse rate 67 /min Hai Johnson tobinleora weight E&M 270.2 [lb_av] Hai zuletaon height E&M 70 [in_i] Hai garcia ALLERGIES Allergy Name Onset Date Reaction Criticality Status IODINE DYE Low Criticality active BRILINTA Low Criticality active RESULTS Date Observation Value Provider Reference Range Interpretation Location coagulation managed by Rayna Rodriguez RN international normalized ratio (INR) 2.3 Rayna Rodriguez RN Normal coagulation managed by Arabella Taylor international normalized ratio (INR) 1.1 Arabella Taylor Normal coagulation managed by Pamela Nicole RN international normalized ratio (INR) 6.2 Pamela Nicole RN Normal coagulation managed by Pamela Nicole RN international normalized ratio (INR) 8.0 Pamela Nicole RN Normal coagulation managed by Pamela Cabrala Nicole RN international normalized ratio (INR) 2.8 Pamela Nicole RN Normal coagulation managed by Rayna Rodriguez RN Rayna Rodriguez RN international normalized ratio (INR) 18 Rayna Rodriguez RN Normal prothrombin time (patient) 169.0 s LinkLogic 9.0-11.5 High international normalized ratio (INR) >18.0 [employer]Log[employer] High prothrombin time (patient) 169.0 s LinkLogic 9.0-11.5 High international normalized ratio (INR) >18.0 [employer] High international normalized ratio (INR) 6.2 Arabella Taylor Normal coagulation managed by Arabella Taylor coagulation managed by Robin Villarreal RN international [...] Rodriguez RN international normalized ratio (INR) 2.2 Ryana Rodriguez RN Normal coagulation managed by Robin Villarreal RN international normalized ratio (INR) 1.8 Robin Villarreal RN Normal coagulation managed by Robin Villarreal RN Robin Arevalos RN international normalized ratio (INR) 4.1 Robin Villarreal RN Normal coagulation managed by Robin Arevalos RN international normalized ratio (INR) 1.8 Robin Villarreal RN Normal coagulation managed by Robin Villarreal RN Robin Arevalos RN international normalized ratio (INR) 1.9 Robin [...] RN international normalized ratio (INR) 3.5 Robin Arevalos RN Normal prothrombin time (patient) 42.0 s [...] Robin Arevalos RN international normalized ratio (INR) 2.2 Robin [...] s Annemarie Connelly RN coagulation managed by Annmearie Connelly RN prothrombin time (patient) 16.4 s [...] RN coagulation managed by Annemarie Connelly RN Annemarie Connelly RN international normalized ratio (INR) 3.9 Annemarie Connelly RN Normal prothrombin time (patient) 41.7 s Annemarie Connelly RN coagulation managed by Annemarie Connelly RN Annemarie [...] LinkLogic 3.5-5.2 sodium, serum 140 mmol/L LinkLogic [phone]/03/ 21 urea nitrogen/creatini ne ratio, serum 17 [...] Not Estab. platelet count 261 X10E3/UL LinkLogic [phone]/03/ 21 red blood cell distribution width 13.9 [...] USE Medication Status Instructions Dates Provider Indications [facility] ments metoprolol succinate 50 mg tablet extended release 24 hr active Take 2 tablet by mouth once a day Hamlet Ortega MD Lovenox 120 mg/0.8 mL syringe active Inject one syringe twice a day for 5 days before the procedure, and for 2 days after procedure. Restart warfarin after procedure as well with lovenox. Moustapha Koehler RN amlodipine 10 mg tablet active 1 tablet by mouth once a day Hamlet Ortega MD warfarin 3 mg tablet active Take 1 tablet by mouth once a day Arabella Brandon oil heaterman anticoagulant therapy warfarin 3 mg tablet completed Take 1 tablet by mouth every evening EXCEPT on Mon Mon and Mon , take 1 and one half tablet. (4.5 mg) - Annemarie Connelly RN oil heaterman anticoagulant therapy warfarin 2 mg tablet completed 1 tab on 01/19, 01/20, 01/21, 01/22 - Robin Villarreal RN levothyroxine 25 mcg tablet active Take 1 tablet by mouth every morning Annemarie Connelly RN warfarin 3 mg tablet completed Take 1 tablet by mouth every evening EXCEPT on Mon and take one half tablet. (1.5 mg) - Moustapha Koehler RN oil heaterman anticoagulant therapy warfarin 2 mg tablet completed - Annemarie Connelly RN Vascepa 1 gram capsule active potassium chloride 20 mEq tablet extended release completed - Saniya Connelly metoprolol succinate 50 mg tablet extended release 24 hr completed Take 1 tablet by mouth once a day - Hamlet Ortega MD nifedipine 90 mg tablet [...] by mouth once a day - Selina Pattersonflorecitahelga losartan 100 mg tablet completed Take 1 [...] CAPSULE active 1 tablet once a day Lolisstlian Berger calcitriol 0.25 mcg capsule active 1 capsule three times a week Lolisstlian Berger furosemide 80 mg tablet completed Take 2 [...] time followed by sliding scale - Lolisstlian Coronadoue VIAGRA 50 MG ORAL TABLET completed 1 tab every 24 hours - Harriett Berger PREDNISONE 10 MG ORAL TABLET completed [...] ORAL TABLET completed ONE TAB. DAILY - Harriett Berger CLONIDINE HCL 0.1 MG ORAL TABLET completed ONE TAB. TWICE DAILY - Karley Holly clopidogrel 75 mg tablet completed Take 1 tablet by mouth once a day - Nina Loly isosorbide mononitrate 30 mg tablet extended release [...] social history E&M Marital Statu s: C hilen: 3 O ccupation: Disabled Smoking History: P [...] Karley Holly smoking status Never smoker Karley orsas social history E&M Marital Statu s: C asher: 3 O ccupation: Disabled Smoking History: P atient has never smoked. Hamlet Ortega MD social history reviewed E&M revi ewed - no changes required Hamlet Ortega MD passive cigarette sm kat exposure no Karley Holly smoking status Never smoker Karley rosas social history E&M Marital Statu s: Michael claudioen: 3 O ccupation: Disabled Smoking History: [...] required Hamlet Ortega MD alcohol use no Uriellian Berger passive cigarette sm kat exposure no Harriett Berger smoking status Never smoker Harriett Coronadou e social history E&M Marital Statu s: Michael stevensondren: 3 O ccupation: Disabled Smoking History: [...] 3 O ccupation: Disabled Smoking History: P maryse has never smoked. Hamlet Ortega MD appendectomy, [...] Payer name Policy type / Coverage type [place] [employer] party ID [id number] COMPLETE CARE [id number] (PPO C-SNP) Commercial insurance [employer] [id number] HEALTHC[employer] AND FAMILY SERVICES Medicaid 3 [id number] ADVANCE DIRECTIVES Name Date DISCUSSED - NO DECISION MADE TREATMENT PLAN Date Name Performer [id number],S, Hamlet Ramada n [place] [id number],S, Hamlet Ramada n [place] [id number],S, Hamlet Ramada n [place] [id number],S, Hamlet Ramada n [place] [id number],S, Hamlet Ramada n [place] [id number],S, Hamlet Ramada n [place] [id number],S, Hamlet Ramada n [place] [id number],S, Hamlet Ramada n [place] [id number],S, Hamlet Ramada n [place] [id number],S, Hamlet Ramada n [place] [id number],S, Hamlet Ramada n [place] [id number],S, Hamlet Ramada n [place] [id number],S, Hamlet Ramada n [place] [id number],C,T he patient is using BiPAP on a regular basis. The patient has been benefiting from therapy and should continue use. Hamlet Ramadan W[place] [id number],S, Hamlet Ramada n [place] [id number],S, Hamlet Ramada n [place] [id number],S, Hamlet [place]ada n [place] [id number],S, Hamlet [place] [id number],S, Hamlet Ramada n [place] [id number],S, Hamlet Ramada n [place] [id number],S, Hamlet Ramada n [place] [id number],S, Hamlet Ramada n [place] [id number],S, Hamlet Bloom n [place] [id number],S, Hamlet Bloom n [place] [id number],S, Hamlet Bloom n [id number],S, Hamlet Bloom n [place] [id number],S, Hamlet Bloom n [place] [id number],C,T he patient is using CPAP on a regular basis. The patient has been benefiting from therapy and should continue use. Hamlet Shannon ARNOLD [id number],B, Hamlet Bloom megan ARNOLD [id number],S, Hamlet Loredodewayne guzman MD [id number],B, Hamlet Bloom megan [place] [id number],B, Hamlet Bloom megan [place] [id number],S, Hamlet Bloom megan [place] [id number],S, Hamlet Bloom megan [place] [id number],B, Hamlet Bloom megan [place] [id number],S, Hamlet Bloom megan [place] [id number],S,L ast stress 01/08 had some abnormalities that fit with known coronary anatomy. No significant symptoms at this point. Will follow closely, no cath at this point. Patient is encouraged to increase activity as tolerated, particularly exercise in form of walking on treadmill. Hamlet Ortega MD [id number],B, Hamlet Bloom megan ARNOLD [id number],S, Hamlet Bloom megan ARNOLD [id number],S, Hamlet Bloom megan ARNOLD [id number],C,T he patient is using CPAP on a regular basis. The patient has been benefiting from therapy and should continue use. Hamlet Ortega MD [id number],S, Hamlet guzman MD [id number],S,L ast stress 01/08 had some abnormalities that fit with known coronary anatomy. No significant symptoms at this point. Will follow closely, no cath at this point. Hamlet Ortega MD Cardiology: R PM shows high BP. J ust started amlodipine, will follow and adjust as needed. Hamlet Ortega MD Cardiology: S /P AVR Hamlet Ortega MD Cardiology: S /P CABG Hamlet Ortega MD Cardiology:Now with RVR. Increase metoprolol to 100mg daily. Script sent. 2 week tele Hamlet Ortega MD Cardiology Hamlet Ortega MD [...] MD Electrophysiology Hamlet Ortega MD Electrophysiology Hamlet Shannon ARNOLD Electrophysiology Hamlet Facundoadamegan ARNOLD Cardiology Hamlet Ramadamegan ARNOLD Cardiology Hamlet Ramadan Cardiology Hamlet Facundoadamegan ARNOLD Cardiology Hamlet Facundoadamegan ARNOLD Cardiology Hamlet Facundoadamegan ARNOLD Cardiology Hamlet Facundoadamegan ARNOLD Cardiology Hamlet Ramadamegan ARNOLD Cardiology Hamlet Ramadamegan ARNOLD Cardiology Hamlet Ramadan Cardiology:The patie nt is using CPAP on a regular basis. The patient has been benefiting from therapy and should continue use. Hamlet Ortega MD Cardiology Hamlet Ortega MD Cardiology Hamlet Shannon ARNOLD Cardiology Hamlet Shannon ARNOLD Cardiology Hamlet Facundoadamegan ARNOLD Cardiology Hamlet Facundoadamegan ARNOLD Cardiology Hamlet Shannon ARNOLD Cardiology Hamlet Shannon ARNOLD Cardiology Hamlet Ortega MD Cardiology follow up [...] Ortega MD Cardiology hospital follow up Ra rut Ortega MD Cardiology hospital follow up Ra suzanq Shannon ARNOLD Cardiology hospital follow up Ra suzanq Shannon ARNOLD Cardiology hospital follow up Ra rut Ortega MD Cardiology follow up Hamlet cantu [...] MD Cardiology Hamlet Ortega MD Date Name PROTHROMBIN TIME WIT H INR Monitor - Telemetry (Mobile Cardiac) PROTHROMBIN TIME WIT H INR PROTHROMBIN TIME WIT H INR Complete Echo PROTHROMBIN TIME WIT H INR [...] MD completed Protime Annemarie Connelly RN completed Protime Ramirez Newberry MD complete d Protime Kota Stover MD completed Protime Ramirez Newberry MD complete d Protime Robin Villarreal RN completed Protime Patrick Almonte MD complet ed Phone Anti-Coag Management Hamlet Ortega MD completed Protime Pro Alexis MD complet ed Protime Hamlet Ortega MD complete d Protime Hamlet Ortega MD complete d Phone Anti-Coag Management Hamlet Ortega MD completed Protime Hamlet Ortega MD complete d EKG Hamlet [...]
--- OUTSIDE RECORDS SUMMARY | 2024-10-16 15:36 | XMS_ITS | Data Portability ---
Author Organization [facility] IP Address [address] [place] [address] Care Team Providers Care Pull Through Hooker Name Role Phone STEPHANIE CORREA Primary Care [...] By Organization Details Last Modified Time 07/25/2018 [id number] use OTC lubrican t eyedrops 3 times a day in both eyes. [email or web address] Not available 07/25/2018 17:27:28 Keep follow-up appointments in 2 months as scheduled. [email or web address] Not available 07/25/2018 17:27:45 12/05/2018 [id number] diabetic retinopathy: care instructions msafi Not available 12/05/2018 20:02:55 type 2 diabetes: [facility] 12/05/2018 20:02:55 Reason for Referral None Reported. Problems Name Problem SNOMED Code Status Onset Date Resolution Date Notes Provider Name and Address Organization Details Recorded Time Diabetes mellitus 53329529 Active 2017 Wandy agosto [facility] 8 12:14:02 Hypercholestero lemia 23504382 Active 2017 Wandy agosto [facility] 8 12:14:14 Problem Notes None recorded. Procedures Surgical History Date Name Laterality Status Provider Name and Address Organization Details Recorded Time 9 placement of stent in coronary artery completed Wandy Rapp [facility] 12/05/2018 10:00:35 7 placement of stent in [...] Name and Address Organization Details Recorded Time 336093 Brilinta medicatio n Not available Not available Not available 07/04/2018 41310 36 RxNorm Not Available Not Available Not Available 786760 Iodinated contrast media (substanc e) medicatio n Not available Not available Not available 07/04/2018 54766 2004 SNOMED Not Available Not Available Not [...] 8 180.34 cm 64 /min 37 kg/m2 742609. 98 g 161 mm[Hg] 66 mm[Hg] Wandy Rapp [facility] S[facility] 8 12:12:14 Date Recorded Body height Heart rate Body mass index (BMI) Body weight Systolic blood pressure Diastolic blood pressure Provider Name and Address Organization Details Last Updated DateTime 8 180.34 cm 63 /min 36.9 kg/m2 926106. 46 g 148 mm[Hg] 67 mm[Hg] Bernice Connelly RN [facility] 8 15:12:11 Date Recorded Body height Body mass index (BMI) Body weight Heart rate Systolic blood pressure Diastolic blood pressure Provider Name and Address Organization Details Last Updated DateTime 180.34 cm 37.8 kg/m2 644758. 53 g 62 /min 133 mm[Hg] 64 mm[Hg] Wandy Rapp [facility] 9 09:58:22 Social History Question Answer Notes LastModified by Organizat ion Details LastModified Time Tobacco Smoking Status Never Smoker Wandy Rapp [facility] 12/05/2018 09:58:54 What Was The Date Of Your Most Recent Tobacco Screening? 12/05/2018 Information not available 03/14/2019 Has Tobacco Cessation Counseling Been Provided? No [facility] not available 12/05/2018 Sex: Unknown Functional Status None recorded. Mental Status None recorded. Family History Relationship Description Onset Age of this Age Resolved Age Notes LastModified by Organization Details LastModified Time Father Myocardial infarction areaka Not available 12/05 10:02:48 Medical History Condition Response Diabetes Y Coronary Artery Disease Y Heart Disease Y Hypertension Y Sleep Apnea Y High Cholesterol Y Past Encounters Encounter ID Performer Location Encounter Start Date Encounter Closed Date Diagnosis/Indication Diagnosis SNOMED-CT Code Diagnosis ICD10 Code Diagnosis Note [id number] Evy Olson MD [facility] [address] [place] [address] 07/04/2018 11:51:22 07/05/2018 16:47:49 After-cataract with vision obscured following extraction of cataract 488882464 H26.492 Proliferat bianca retinopathy due to type 1 diabetes mellitus 1796574839 9101 E10.3593 [id number] Evy Olson MD [facility] [address] [place] [address] 07/25/2018 14:26:14 07/30/2018 10:38:59 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 7839877509 14363 E11.3299 Tear film insufficiency 84474462 H04.511 [id number] Evy Olson MD [facility] [address] [place] [address] 12/05/2018 09:46:14 12/06/2018 13:28:35 Nonproliferative retinopathy due to diabetes mellitus 194657079 E11.3293 After-juan ract with vision obscured following extraction of cataract 585502788 H26.492 Health Concerns Section Related Observation LastModified by Organization Detai ls LastModified Time None Recorded Concern Status LastModified by Organization Details LastModified Time None Recorded Advance Directives Directive None Recorded Payers Encounter Date Sequence Insurance Name Policy Number Policy Ge Covered Member ID Ge Member ID Guarantor Name 07/04/2018 1 [facility] (MEDICAID HMO) [id number] Juvenal Newcombe [id number] Juvenal Newcombe 07/25/2018 1 [employer] (MEDICAID HMO) [id number] Juvenal Newcombe [id number] Juvenal Newcombe 12/05/2018 1 [facility] (MEDICAID HMO) [id number] Juvenal Newcombe [id number] Juvenal Newcombe Notes Date Note Type Note Provider Name and Address Organization Details Recorded Time 07/04/2018 text/html C/O bleeding in left eye 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 Sx OU. 2016 and 2017. No prolbem in post op exam Evy Olson MD [address] [place], [address], [facility] 07/05/2018 10:07:17 07/25/2018 text/html complaint of red spot in the right eye since 3 days, no pain no discharge no previous injury.History of diabetic retinopathy in both eyes Evy Olson MD [address] [place], [address], [facility] 07/25/2018 17:28:04 12/05/2018 text/html F/U DRP. c/o decreased vision in left eye Evy Olson MD [address] [place], [address], [facility] 12/05/2018 20:02:58
== END 2024-10-16 13:44 | disposition home or self-care (01) ==
PROVIDERS: Visit Provider Nurse Practitioner Family
DX: M43.06 Spondylolysis, lumbar region (principal); M43.04 Spondylolysis, thoracic region; J90 Pleural effusion, not elsewhere classified
CPT/HCPCS: 72128; 72131

== ENCOUNTER 2024-10-24 17:50 | Emergency (ER) | payer MEDICARE, MEDICAID, SELFPAY ==
--- OUTSIDE RECORDS SUMMARY | 2024-10-24 17:53 | XMS_ITS | Encounter Summary ---
Author Organization [facility] Address [address] [place] [phone] Phone Care Team Providers Care Pizza Chef Name Role Phone Unavailable Primary Care Provider Unavailabl e Reason for Visit * Reason Comments Med Refill Encounter Details Date Type Department Care Team (Late st Contact Info) Description 01/25/2019 Refill [facility] [address] [facility] [place] [address] Leandro Reyes MD [address] [address] Social History Tobacco Use Types [...]
--- OUTSIDE RECORDS SUMMARY | 2024-10-24 17:53 | XMS_ITS | Encounter Summary ---
Author Organization [facility] Address [address] [address] Phone Care Team Providers Care Wholesale Agronomist Name Role Phone Unavailable Primary Care Provider Unavailabl e Reason for Visit * Reason Comments Med Refill Encounter Details Date Type Department Care Team (Late st Contact Info) Description 02/24/2020 Refill [facility] [address] [address] Leandro Reyes MD [address] [address] Social History Tobacco Use Types [...]
--- OUTSIDE RECORDS SUMMARY | 2024-10-24 17:53 | XMS_ITS | Encounter Summary ---
Author Organization [facility] Address [address], [place] [address] Phone Care Team Providers Care Bmx Rider Name Role Phone Unavailable Primary Care Provider Unavailabl e Reason for Visit * Reason Comments Med Refill Encounter Details Date Type Department Care Team (Late st Contact Info) Description 10/08/2019 Refill [facility] [address] [address] Leandro Reyes MD [address] [address] Social History Tobacco Use Types [...]
--- OUTSIDE RECORDS SUMMARY | 2024-10-24 17:53 | XMS_ITS | Encounter Summary ---
Author Organization [facility] Address [address], [place] [address] Phone Care Team Providers Care Bunch Maker Name Role Phone Unavailable Primary Care Provider Unavailabl e Reason for Visit * Reason Comments Med Refill Encounter Details Date Type Department Care Team (Late st Contact Info) Description 02/13/2019 Refill [facility] [address] [address] Leandro Reyes MD [address] [address] Social History Tobacco Use Types [...]
--- OUTSIDE RECORDS SUMMARY | 2024-10-24 17:53 | XMS_ITS ---
Author Organization [facility] Address [address] [place] [address] Care Team Providers Care Wall Mirror Department Supervisor Name Role Phone Aditya Castro MD Primary Care Provider [phone] Alondra Lambert RN Unavailable [phone] Shannon Brock MD, [place] P. Unavailable [phone] Leandro Reyes MD Unavailable [phone] Transplant Episode Kidney Candidate [facility] ([place], [place]) [facility] Evaluation began on 05/10/2024 Marked as Active on 05/10/2024 Reason: Evaluation - Standard Kidney CoordinatorAlondra Lambert RN Fax: N/A Email: N/A Scores Score Value Updated Exceptions/Reas ons CPRA Not available EPTS (Calc) 78 10/24/2024 Care Team Name Role Phone Fax Email Alondra Lambert RN Kidney Coordinator [phone] N/A N/A Melany Kelly Primary Travel Ticketing Reviewer N/A N/A N/A Chris Richard Special Needs Bus Driver N/A N/A N/A Events Pre-Transplant Referred: 03/06/2024 Evaluation began: 05/10/2024 Dialysis History Dialysis History Start End Type Comments Center 10/16/2019 Peritoneal [facility] Information Center Phone Fax Address [facility] [phone] [address] [facility] [address] [facility] [address]
--- OUTSIDE RECORDS SUMMARY | 2024-10-24 17:53 | XMS_ITS | Continuity of Care Document ---
Author Organization [facility] Address [address] [place] [address] [place] [address] Phone Care Team Providers Care Apprentice Jockey Name Role Phone Carlos Garcia Unavailable Unavailable Advance Directives Directive Yes / No Effective Date File Name No Information Encounters Encounter Description Practice Location Reason(s) For Visit Diagnoses Date Provider Providers Copied on Encounter [facility], [address], [place], [place], [id number], [place] tel:[phone] [facility] No Information Radha oGnzalez. [address] [place], [place], [facility], [place]. tel:[phone] Referring Provider: Yannick Remy, [facility], [facility] [address], [place], [place], [facility]. tel:[phone] Family History Family Member Type Diagnosis Age At Onset No Information Payers Payer name Insurance type Covered democrat ID Authoriza tion(s) Medicaid [facility] [id number] Social History Type Description Quantity Date Captured [...]
--- OUTSIDE RECORDS SUMMARY | 2024-10-24 17:53 | XMS_ITS | Clinical Summary ---
Author Organization [facility] Address [address] [place] [address] Care Team Providers Care News Videographer Name Role Phone Aditya Castro MD Primary Care Provider [phone] Alondra Lambert RN Unavailable [phone] Shannon Brock MD, Hamlet P. Unavailable [phone] Leandro Reyes MD Unavailable [phone] Allergies Active Allergy Reactions Criticality Noted Date [...] PUMP: Continue Omnipod 5 insulin pump with [email or web address] G6 CGM at home settings: TIME [...] 1 tablet (25 mcg total) by mouth naturopath before breakfast 30 tablet 1 11/04/19 24 [...] mg SL tablet 12/28/19 18 Active peg 265-txrgpcnmbhcd-cl ycerin (ARTIFICAL TEARS) 1-0.2-0.2 % ophthalmic solution 1 drop 4 (four) times a day 07/07/20 22 Active potassium chloride ER 20 mEq CR tablet Active Active Problems Problem Noted Date Diagnosed Date End stage renal disease 07/29/2024 Nonrheumatic aortic valve stenosis 11/22/2023 Status post aortic valve replacement 11/22/2023 Status post coronary artery bypass grafting 10/2023 CAD in [place] artery 10/13/2023 Anemia 06/22/2022 Assessment & Plan (06/29/2022 10:12 AM SKIN CARE SPECIALIST): Stable, likely 2/2 anemia from ESRD, no [...] trend Hb. ESRD (end stage renal disease) 06/22/2022 Assessment & Plan (06/29/2022 10:12 AM SKIN CARE SPECIALIST): - Renal consulted, s/p CRRT in the ICU now back on PD. Tolerated well and nephrology following - Trialysis catheter removed - Continue vitamins for renal bone mineral disease. Assessment & Plan (06/28/2022 3:29 PM SKIN CARE SPECIALIST): - Renal consulted, s/p CRRT in the [...] 06/22/2022 Assessment & Plan (06/29/2022 10:12 AM SKIN CARE SPECIALIST): C/b cardiogenic shock requiring impella in the setting of cath and AHRF 2/2 pulmonary edema, now resolved. TTE demonstrating recovered EF 65% with grade I diastolic dysfunction. - metop as above - continue low dose losartan 12.5mg daily, ok per nephro. Tolerating well - volume management per PD Assessment & Plan (06/28/2022 3:29 PM SKIN CARE SPECIALIST): C/b cardiogenic shock requiring impella in the [...] tartrate, start GDMT per cardiology. Atrial fibrillation 06/22/2022 Assessment & Plan (06/29/2022 10:12 AM SKIN CARE SPECIALIST): Converted to NSR overnight on 06/24. CHADsVASc of 4 not on anticoagulation prior to admission. - cardiology consulted - recommended ongoing rate control - holding off on a/c with high risk for bleeding while on DAPT - reduced metop to 25mg BID in the setting of hypotension, HR 70s NSR Assessment & Plan (06/28/2022 3:30 PM SKIN CARE SPECIALIST): Converted to NSR overnight on 06/24. CHADsVASc [...] of AC. NSTEMI (non-ST elevated myocardial infarction) 1 08/22/2021 Assessment & Plan (06/29/2022 10:11 AM SKIN CARE SPECIALIST): With recurrent chest pain post-cath. He has [...] today Assessment & Plan (06/28/2022 3:30 PM SKIN CARE SPECIALIST): With recurrent chest pain post-cath. He has [...] 06/22/2022 Assessment & Plan (06/29/2022 10:11 AM SKIN CARE SPECIALIST): Secondary to NSTEMI, s/p Impella since removed on 06/10. Resolved. Assessment & Plan (06/23/2022 4:55 PM CDT): Secondary to NSTEMI, s/p Impella since removed on 06/10. Resolved. Assessment & Plan (06/22/2022 8:22 PM CDT): -Secondary to NSTEMI, s/p Impella since removed on 06/10. Acute hypoxemic respiratory failure 06/09/2022 Assessment & Plan (06/29/2022 10:12 AM SKIN CARE SPECIALIST): Secondary to ACS and flash pulmonary edema, [...] (06/10/2022): Added automatically from request for surgery [id number] Abnormal cardiovascular stress test 12/29/2020 Overview (12/29/2020): Added automatically from request for surgery [id number] 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n ative artery of [place] heart with stable angina pectoris ([facility]) 05/23/2017 History of coronary artery stent placement 05/23 Macular ischemia 03/17/2017 Combined forms of age-related cataract 7 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 03/17/2017 Type 2 diabetes mellitus treated with insulin Overview (11/25/2016): Insulin treated Type II diabetes mellitus Chronic kidney disease, stage III (moderate) 12/2014 Overview (11/25/2016): Chronic kidney disease, stage 3 Benign essential hypertension 03/25/2015 Overview (11/25/2016): Benign essential HTN Hyperlipidemia 03/25/2015 Overview (11/25/2016): Hyperlipidemia Pain of finger 11/24/2014 Hypersomnia 11/22/2013 Chronic kidney disease 11/22/2013 Hypertension 01/18/2013 Type 1 diabetes mellitus 01/18/2013 Assessment & Plan (06/29/2022 10:12 AM SKIN CARE SPECIALIST): A1c well controlled on admission. He uses [...] session Assessment & Plan (06/28/2022 3:28 PM SKIN CARE SPECIALIST): A1c well controlled on admission. He uses [...] Department Care Team Description 09/12/2024 Orders Only [facility] Cardiology [address] [place] [address] Lalit Machuca MD 08/06/2024 Documentation [facility] Transplant Kidney [address] Mailstop [phone] [place] [address] Alondra Lambert, LUAN 07/30/[address] [facility] Transplant Kidney [address] Mailstop [phone] [place] [address] Alondra Lambert, RN 07/29/2024 1:15 PM SKIN CARE SPECIALIST Lab [facility] ([facility]) [address] [place] [phone] End stage renal disease (HCC); ESRD (end stage renal disease) ([facility]) 07/29/2024 1:00 PM SKIN CARE SPECIALIST Office Visit [facility] Nephrology [address] 5[address] [place] [address] [place] [address] Radha Bartholomew MD Pre-transplant evaluation for kidney transplant (Primary Dx); End stage renal disease (HCC); Status post coronary artery bypass grafting; Status post aortic valve replacement; Type 1 diabetes mellitus with chronic kidney disease on chronic dialysis (HCC); CAD in [place] artery; Paroxysmal atrial fibrillation (HCC) 07/29/2024 11:02 AM SKIN CARE SPECIALIST - 07/29/2024 11:59 PM SKIN CARE SPECIALIST Hospital Encounter [facility] Pulmonary Rehabilitiation Program [address] [place] [address] Discharge Disposition: Discharge to home or self care 07/29/2024 10:58 AM SKIN CARE SPECIALIST - 07/29/2024 11:59 PM SKIN CARE SPECIALIST Hospital Encounter [facility] [address] [place] [address] End stage renal disease (HCC) Discharge Disposition: Discharge to home or self care 07/29/2024 10:55 AM SKIN CARE SPECIALIST - 07/29/2024 11:59 PM SKIN CARE SPECIALIST Hospital Encounter [facility] ([facility]) [address] [place] [address] End stage renal disease (HCC) Discharge Disposition: Discharge to home or self care 07/29/2024 10:53 AM SKIN CARE SPECIALIST - 07/29/2024 11:59 PM SKIN CARE SPECIALIST Hospital Encounter [facility] ([facility]) [address] [place] [address] End stage renal disease (HCC) Discharge Disposition: Discharge to home or self care 07/29/2024 9:00 AM SKIN CARE SPECIALIST Social Work [facility] Trans[facility] [address] [facility], [place] [address] 07/29/2024 Telephone [facility] Transplant Kidney [address] Mailstop [phone] [place] [address] Alondra Lambert, RN 07/26/2024 Telephone [facility] Transplant Kidney [address] Mailstop [phone] [place] [address] Elsie Cornejo 07/26/2024 Orders Only [facility] Transplant Kidney [address] Mailstop [phone] [place] [address] Alonrda Lambert RN ESRD (end stage renal disease) (HCC) (Primary Dx) 07/26/2024 Telephone [facility] Transplant Kidney [address] Mailstop [phone] [place] [address] Alondra Lambert RN from Last 3 Months Immunizations Immunization Administration [...] breath) GERD (gastroesophageal reflux disease) Dialysis patient ESRD on dialysis (HCC) Diabetes mellitus type [...] materials from doctor or pharmacy Never 12/01/2023 C Utilities Answer Date Recorded In the past 12 months has th e [employer], gas, oil, or water company [...] How often do you attend yarsanism or methodist serv ices? Never 08/01/2024 Do you belong [...] any time in the past 12 m [facility], were you homeless or living in a fdc (including now)? No 08/01/2024 Personal Safety Answer Date Recorded Have you ever been in or are you currently in a harmful physical or emotional relationship or is someone making you feel afraid or unsafe? 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 Male 3:42 AM SKIN CARE SPECIALIST Gender Identity Not on file Sexual Orientation Not on file Obstetrics History Last Filed Vital Signs Vital Sign Reading Time Taken Comments Blood Pressure 122/75 07/29/2024 1:00 PM SKIN CARE SPECIALIST Pulse 116 07/29/2024 1:00 PM SKIN CARE SPECIALIST Temperature 36.8 C (98.2 F) 07/29/2024 1:00 PM SKIN CARE SPECIALIST Respiratory Rate 16 12/01/2023 11:1 3 AM CDT Oxygen Saturation 96% 12/01/2023 11: 13 AM CDT Inhaled Oxygen Concentration - - Weight 121.2 kg (267 lb 1.6 oz) 07/29/2024 1:00 PM SKIN CARE SPECIALIST Height 177.8 cm (5' 10 ) 07/29/2024 1:00 PM SKIN CARE SPECIALIST Body Mass Index 38.32 07/29/2024 1:00 PM SKIN CARE SPECIALIST Plan of Treatment Health Maintenance Due Date [...] 03/23/2017, 03/26/2015 Medical Devices Implanted Type Area Screw Driver Operator Device Identifier Shelf Expiration Date Model / Serial / Lot Kyle Vascular Device Clsr Perclose Prostyle Sut-Mediatd Closure-Repair Sys 63178-72 - [id number] Implanted:Qty: 1 on 06/10/2022 by Champ Osborne MD PhD at [facility] Other - see comments Right: Femoral [employer] 01/19/2024 [id number] / / [id number] [employer] Mary Synergy Xd Monorail 2.5mm 48mm 144cm Delivery System 1 Access [id number] - [id number] Implanted:Qty: 1 on 06/07/2022 by Champ Osborne MD PhD at [facility] Stent [employer] Mary 10/27/2023 [id number] / / [id number] [employer] Mary Synergy Xd Monorail 3mm 24mm 144cm Delivery System 1 Access Port [id number] - [id number] Implanted:Qty: 1 on 06/07/2022 by Champ Osborne MD PhD at [facility] Stent [employer] Mary 07/28/2023 [id number] / / [id number] [employer] Mary Synergy Xd Monorail 2.5mm 12mm 144cm Delivery System 1 Access [id number] - [id number] - [id number] Implanted:Qty: 1 on 06/07/2022 by Champ Osborne MD PhD at [facility] Stent [employer] Mary 05/03/2023 [id number] / [id number] / [id number] Dai Mary [id number] Device Closure Angio-Seal Vip Bon[place]k-Plus Polyglyd L70 Cm Od6 Fr Odsec.035 In Vascular - [id number] Implanted:Qty: 1 on 01/21/2021 by Hamlet Ortega Jr., MD at [facility] Left: Groin [employer] Mary [id number] / / Kyle Vascular Device Clsr Perclose Prostyle Sut-Mediatd Closure-Repair Sys 42872-89 - [id number] Implanted:Qty: 1 on 06/07/2022 by Champ Osborne MD PhD at [facility] [employer] 01/19/2024 [id number] / / [id number] [employer] Device Clsr Perclose Prostyle Sut-Mediatd Closure-Repair Sys 90751-51 - [id number] Implanted:Qty: 1 on 06/07/2022 by Champ Osborne MD PhD at [facility] [employer] 11/19/2023 [id number] / / [id number] [employer] Access Systems Power-Trialysis 13fr 30cm 3 Lumen Kink Resistance Symmetric Tip [id number] - [id number] Implanted:Qty: 1 on 06/07/2022 by Champ Osborne MD PhD at [facility] Right: Jugular Ramirez Chapito 07/20/2024 [id number] / / [id number] [employer] Impella Cp Percutaneous Left Ventricular Assist Device 8827-0525 - [id number] Implanted:Qty: 1 on 06/07/2022 by Champ Osborne MD PhD at [facility] Left: Ventricle [employer] [id number] / / Bard Access Systems Power-Trialysis 13fr 20cm 3 Lumen Short Term Dialysis Straight [id number] - [id number] Implanted:Qty: 1 on 06/18/2022 at [facility] Ramirez Stigler 07/20/2024 [id number] / / [id number] [employer] Screw Bone Slf Drl Full Thread Locking 3.5x14mm Ti 100.035.14 - [id number] Implanted:Qty: 6 on 10/17/2023 by Lorne Mcnulty MD at [facility] N/A: Sternum [employer] 100.035.1 4 / / [employer] Plate Bone Low Profile 6 Hole H Shape Sternum Ti 115.102.06 - [id number] Implanted:Qty: 2 on 10/17/2023 by Lorne Mcnulty MD at [facility] N/A: Sternum [employer] 115.102.0 6 / / [employer] Plate Bone Low Profile 6 Hole O Shape Sternum Ti 115.104.06 - [id number] Implanted:Qty: 1 on 10/17/2023 by Lorne Mcnulty MD at [facility] N/A: Sternum [employer] 115.104.0 6 / / On-X Intrnl Valve Coronary Aortic Mechanical On X 25mm Onxane-25 - [id number] - [id number] Implanted:Qty: 1 on 10/17/2023 by Lorne Mcnulty MD at [facility] N/A: Heart On-X Intrnl 01/22/2028 ONXANE-25 / [id number] / [employer] Screw Bone Slf Drl Full Thread Locking 3.5x18mm Ti 100.035.18 - [id number] Implanted:Qty: 12 on 10/17/2023 by Lorne Mcnulty MD at [facility] N/A: Sternum [employer] 100.035.1 8 / / Explanted Type Area Screw Driver Operator Device Identifier Shelf Expiration Date Model / Serial / Lot Bard Peripheral Vascular Bard .25x.25in [place] Thk1.65mm Square [employer] Ptfe [id number] - [id number] Explanted:Qty: 1 on 10/17/2023 by Lorne Mcnulty MD at [facility] N/A: Heart Bard Peripheral Vascular 05/18/2026 [id number] / / Procedures Procedure Name Priority Date/Time Associated Diagnosis Comments CARDIOLOGY DOCUMENT SCAN Routine 09/08/2024 11:26 AM SKIN CARE SPECIALIST CARDIOLOGY DOCUMENT SCAN Routine 09/07/2024 11:24 AM SKIN CARE SPECIALIST CARDIOLOGY DOCUMENT SCAN Routine 09/05/2024 11:06 AM SKIN CARE SPECIALIST HLA SOLID ORGAN TYPING REPORT 08/02/2024 9:04 AM SKIN CARE SPECIALIST SIX MINUTE WALK Routine 07/29/2024 2:46 PM SKIN CARE SPECIALIST End stage renal disease (HCC) CT ABDOMEN PELVIS WO CONTRAST Schedule Routine, Read Routine (OP Routine) 07/29/2024 12:43 PM SKIN CARE SPECIALIST End stage renal disease (HCC) XR ORTHOPANTOGRAM/PANOR EX Schedule Routine, Read Routine (OP Routine) 07/29/2024 11:44 AM SKIN CARE SPECIALIST End stage renal disease (HCC) TYPE AND SCREEN Routine 07/29/2024 11:23 AM SKIN CARE SPECIALIST End stage renal disease (HCC) ECG 12-LEAD Routine 07/29/2024 11:14 AM SKIN CARE SPECIALIST End stage renal disease (HCC) ABO/RH Routine 07/29/2024 11:13 AM SKIN CARE SPECIALIST EGFR Routine 07/29/2024 11:01 AM SKIN CARE SPECIALIST End stage renal disease (HCC) DIFFERENTIAL AUTO Routine 07/29/2024 11: 01 AM SKIN CARE SPECIALIST End stage renal disease (HCC) CBC WITH AUTO DIFFERENTIAL Routine 07/29/2024 11:01 AM SKIN CARE SPECIALIST End stage renal disease (HCC) COMPREHENSIVE METABOLIC PANEL Routine 07/29/2024 11:01 AM SKIN CARE SPECIALIST End stage renal disease (HCC) CREATININE, URINE, RANDOM Routine 07/29/2024 11:01 AM SKIN CARE SPECIALIST End stage renal disease (HCC) FERRITIN Routine 07/29/2024 11:01 AM SKIN CARE SPECIALIST End stage renal disease (HCC) GAMMA GT Routine 07/29/2024 11:01 AM SKIN CARE SPECIALIST End stage renal disease (HCC) HEMOGLOBIN A1C Routine 07/29/2024 11:01 AM SKIN CARE SPECIALIST End stage renal disease (HCC) IRON PROFILE W/ IBC Routine 07/29/2024 1 1:01 AM SKIN CARE SPECIALIST End stage renal disease (HCC) LIPID PANEL Routine 07/29/2024 11:01 AM SKIN CARE SPECIALIST End stage renal disease (HCC) PTH Routine 07/29/2024 11:01 AM SKIN CARE SPECIALIST End stage renal disease (HCC) APTT Routine 07/29/2024 11:01 AM SKIN CARE SPECIALIST End stage renal disease (HCC) PHOSPHORUS Routine 07/29/2024 11:01 AM SKIN CARE SPECIALIST End stage renal disease (HCC) PROTEIN, URINE, RANDOM Routine 07/29/2024 11:01 AM SKIN CARE SPECIALIST End stage renal disease (HCC) PROTIME-INR Routine 07/29/2024 11:01 AM SKIN CARE SPECIALIST End stage renal disease (HCC) URIC ACID Routine 07/29/2024 11:01 AM SKIN CARE SPECIALIST End stage renal disease (HCC) PSA SCREEN Routine 07/29/2024 11:01 AM SKIN CARE SPECIALIST End stage renal disease (HCC) LR HLA TYPING (CLASS I AND CLASS II) Routine 07/29/2024 11:01 AM SKIN CARE SPECIALIST End stage renal disease (HCC) HLA CLASS I DNA (ABC) RECIPIENT Routine 07/29/2024 11:01 AM SKIN CARE SPECIALIST End stage renal disease (HCC) HLA CLASS II DNA (DR, DQ, DP) RECIPIENT Routine 07/29/2024 11:01 AM SKIN CARE SPECIALIST End stage renal disease (HCC) HLA ANTIBODY SCREEN - SAB (CLASS I AND CLASS II) Routine 07/29/2024 11:01 AM SKIN CARE SPECIALIST End stage renal disease (HCC) HLA ANTIBODY SCREEN BY SINGLE ANTIGEN Routine 07/29/2024 11:01 AM SKIN CARE SPECIALIST End stage renal disease (HCC) CMV, IGG Routine 07/29/2024 11:01 AM SKIN CARE SPECIALIST End stage renal disease (HCC) MADIHA-MORRIS VIRUS VCA ANTIBODY PANEL Routine 07/29/2024 11:01 AM SKIN CARE SPECIALIST End stage renal disease (HCC) HIV 1/2 ANTIBODY PLUS P24 ANTIGEN Routine 07/29/2024 11:01 AM SKIN CARE SPECIALIST End stage renal disease (HCC) HSV 1 ANTIBODY, IGG Routine 07/29/2024 1 1:01 AM SKIN CARE SPECIALIST End stage renal disease (HCC) HSV 2 ANTIBODY, IGG Routine 07/29/2024 1 1:01 AM SKIN CARE SPECIALIST End stage renal disease (HCC) HEPATITIS B CORE ANTIBODY, TOTAL Routine 07/29/2024 11:01 AM SKIN CARE SPECIALIST End stage renal disease (HCC) HEPATITIS B SURFACE ANTIBODY (IMMUNE STATUS) Routine 07/29/2024 11:01 AM SKIN CARE SPECIALIST End stage renal disease (HCC) HEPATITIS B SURFACE ANTIGEN Routine 07/29/2024 11:01 AM SKIN CARE SPECIALIST End stage renal disease (HCC) HEPATITIS C ANTIBODY Routine 07/29/2024 11:01 AM SKIN CARE SPECIALIST End stage renal disease (HCC) RPR Routine 07/29/2024 11:01 AM SKIN CARE SPECIALIST End stage renal disease (HCC) VARICELLA ZOSTER ANTIBODY, IGG Routine 07/29/2024 11:01 AM SKIN CARE SPECIALIST End stage renal disease (HCC) URINALYSIS, MICROSCOPIC ONLY Routine 07/29/2024 10:53 AM SKIN CARE SPECIALIST End stage renal disease (HCC) OXALATE Routine 07/29/2024 10:53 AM SKIN CARE SPECIALIST ESRD (end stage renal disease) (HCC) URINALYSIS AND REFLEX TO MICROSCOPIC Routine 07/29/2024 10:53 AM SKIN CARE SPECIALIST End stage renal disease (HCC) TSH Routine 10/27/2023 2:30 AM SKIN CARE SPECIALIST from Last 3 Months or Most Recently Relevant to Health Maintenance Results * Cardiology Document Scan (09/08/2024 11:26 AM SKIN CARE SPECIALIST) Anatomical Region Laterality Modality Other Juan Christianson MD CV CARDIAC SERVICES PROCEDU RES Final Result * Cardiology Document Scan (09/07/2024 11:24 AM SKIN CARE SPECIALIST) Anatomical Region Laterality Modality Other Juan Christianson MD CV CARDIAC SERVICES PROCEDU RES Final Result * Cardiology Document Scan (09/05/2024 11:06 AM SKIN CARE SPECIALIST) Anatomical Region Laterality Modality Other Lalit Machuca MD CV CARDIAC SERVICES PROCEDURES F inal Result * HLA Solid Organ Typing Report (08/02/2024 9:04 AM SKIN CARE SPECIALIST) us Jossie King MD LAB GENETIC TESTIN G Final Result * Six Minute Walk - (07/29/2024 2:46 PM SKIN CARE SPECIALIST) Anatomical Region Laterality Modality PFT Narrative 07/29/2024 3:52 PM SKIN CARE SPECIALIST Table formatting from the original result was not included. Davey Pickard V., REINSURANCE CLERK on 07/29/2024 2:45 PM Table formatting from the original note was not included. 6 MINUTE WALK RESULTS Name: Juvenal Daigle Jr : 1970 DOS: 07/29/2024 Diagnosis: ESRD/KTE REINSURANCE CLERK performed walk: Carmenza Pickard Rest: 1 min [...] exercise Jossie King MD RESPIRATORY CARE O RDERASANDRA Final Result * CT Abdomen Pelvis WO Contrast (07/29/2024 12:43 PM SKIN CARE SPECIALIST) Anatomical Region Laterality Modality Body N/A Computed Tomogra phy 07/29/2024 1:04 PM SKIN CARE SPECIALIST Impressions 07/29/2024 1:04 PM SKIN CARE SPECIALIST 1. Moderate discontinuous atherosclerotic calcifications involve the [...] Teresa Rivera M.D. 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 Electronically signed by: Julio Pinedo M.D. Narrative 07/29/2024 12:59 PM SKIN CARE SPECIALIST EXAMINATION: XR ORTHOPANTOGRAM/PANOREX HISTORY: Kidney Transplant Evaluation [...] * Type and screen (07/29/2024 11:23 AM SKIN CARE SPECIALIST) Maribel, indirect Negative ABO Rh A Positive [facility] Blood 07/29/2024 11:2 3 AM SKIN CARE SPECIALIST 07/29/2024 11:43 AM SKIN CARE SPECIALIST Narrative [facility] - 07/29/2024 12:45 PM SKIN CARE SPECIALIST Please draw the ABO and the Type [...] BLOOD BANK ERNESTO T ORDERABLES Final Result [facility] [place] [address] * ECG 12 lead (07/29/2024 11:14 AM SKIN CARE SPECIALIST) Ventricular Rate EKG/Min 117 BPM [facility] Atrial Rate 117 BPM [facility] FL-Interval (MSEC) 144 ms [facility] QRS-Interval (MSEC) 126 ms [facility] QT-Interval (MSEC) 366 ms [facility] QTc 510 ms [facility] R Metz -40 degrees [facility] T Metz 147 degrees [facility] Diagnosis Poor data quality, interpretation [...] Inferior leads Confirmed by FERDINAND SAL M.D ([id number]) on 07/29/2024 3:38:41 PM [facility] 07/29/2024 11:1 4 AM SKIN CARE SPECIALIST 07/29/2024 3:38 PM SKIN CARE SPECIALIST Jossie King MD ECG ORDERABLES Fi nal Result [facility] * ABO/Rh (07/29/2024 11:13 AM SKIN CARE SPECIALIST) ABO Rh A Positive Blood 07/29/2024 11:1 3 AM SKIN CARE SPECIALIST 07/29/2024 2:45 PM SKIN CARE SPECIALIST Jossie King MD LAB BLOOD BANK ERNESTO T ORDERABLES Final Result Performing Organization Address City/[facility] Co de Phone Number [facility] Department [place] [address] * LR HLA Typing (Class I and Class II) (07/29/2024 11:01 AM SKIN CARE SPECIALIST) r-SSO HISTOTRAC A [place] A*03 HISTOTRAC [...] 07/30/24 HISTOTRAC Blood 07/29/2024 11:0 1 AM SKIN CARE SPECIALIST 08/02/2024 9:03 AM SKIN CARE SPECIALIST Narrative HISTOTRAC - 08/02/2024 9:03 AM SKIN CARE SPECIALIST DNA was extracted from whole blood or buccal cell specimens, and relevant genomic regions were amplified by polymerase chain reactions (PCR). HLA typing was performed on PCR amplicons using reverse sequence-specific oligonucleotide (r-SSO) and/or sequence-specific primers (SSP) based techniques. r-SSO and SSP are FDA approved as IVD tests and validated by the [facility]. Testing performed at the [facility], [address] [place] [address], 5th floor, [place], [place], [id number] [facility] # [id number]. Dorothy Meade, Ph.D., Distillery Laborer, HLA Laboratory Rell Samuels M.D., Ph.D., Customer Service Clerk, [facility] Laboratory Licha Nieto, Ph.D., CLIA Customer Service Clerk, [facility] Clinical Laboratories Current methodology comment last revised on 04/25/17. us Jossie King MD LAB BLOOD ORDERABL ES Final Result [facility] * Collection Task for HLA Typing 1 (07/29/2024 11:01 AM SKIN CARE SPECIALIST) HLA Class I DNA (ABC) Recipient Received Blood 07/29/2024 11:0 1 AM SKIN CARE SPECIALIST 07/29/2024 11:56 AM SKIN CARE SPECIALIST Jossie King MD LAB BLOOD ORDERABL ES Final Result Performing Organization Address [facility] de Phone Number [facility] [place] [address] * Collection Task for HLA Antibody Screen (07/29/2024 11:01 AM SKIN CARE SPECIALIST) [facility] HLA Antibody Screen By Single Antigen Received Blood 07/29/2024 11:0 1 AM SKIN CARE SPECIALIST 07/29/2024 11:56 AM SKIN CARE SPECIALIST Jossie King MD LAB BLOOD ORDERABL ES Final Result Performing Organization Address [facility] de Phone Number [facility] [place] [address] * Collection Task for HLA Typing 2, Patient (07/29/2024 11:01 AM SKIN CARE SPECIALIST) [facility] HLA Class II DNA (DR, DQ, DP) Recipient Received Blood 07/29/2024 11:0 1 AM SKIN CARE SPECIALIST 07/29/2024 11:56 AM SKIN CARE SPECIALIST Jossie King MD LAB BLOOD ORDERABL ES Final Result Performing Organization Address [facility] de Phone Number [facility] [place] [address] * (ABNORMAL) eGFR (07/29/2024 11:01 AM SKIN CARE SPECIALIST) [facility] eGFR 7(L) >=60 mL/min/1. 73 m2 [...] reviewed 2021. Blood 07/29/2024 11:0 1 AM SKIN CARE SPECIALIST 07/29/2024 11:33 AM SKIN CARE SPECIALIST us Jossie King MD LAB BLOOD ORDERABL ES Final Result [facility] [place] [address] * Differential, auto (07/29/2024 11:01 AM SKIN CARE SPECIALIST) Neutrophil abs 3.1 1.5 - 6.5 K/cumm Imm gran abs 0.0 0.0 - 0.1 K/cumm [facility] Lymphocyte abs 1.1 0.8 - 3.3 K/cumm [facility] Monocyte abs 0.7 0.2 - 0.8 K/cumm [facility] Eosinophil abs 0.2 0.0 - 0.5 K/cumm [facility] Basophil abs 0.0 0.0 - 0.1 K/cumm [facility] Neutrophil pct 60.3 % [facility] Comment: Interpretive Data Percent cell count reference ranges are not reported, since discordance with absolute values may lead to misinterpretation of CBC data. Current Interpretive Data was last revised on 2017. Imm gran pct 0.6 % [facility] Comment: Interpretive Data Percent cell count reference ranges are not reported, since discordance with absolute values may lead to misinterpretation of CBC data. Current Interpretive Data was last revised on 2017. Lymphocyte pct 21.4 % [facility] Comment: Interpretive Data Percent cell count reference ranges are not reported, since discordance with absolute values may lead to misinterpretation of CBC data. Current Interpretive Data was last revised on 2017. Monocyte pct 13.7 % [facility] Comment: Interpretive Data Percent cell count reference ranges are not reported, since discordance with absolute values may lead to misinterpretation of CBC data. Current Interpretive Data was last revised on 2017. Eosinophil pct 3.2 % [facility] Comment: Interpretive Data Percent cell count reference ranges are not reported, since discordance with absolute values may lead to misinterpretation of CBC data. Current Interpretive Data was last revised on 2017. Basophil pct 0.8 % [facility] Comment: Interpretive Data Percent cell count reference ranges are not reported, since discordance with absolute values may lead to misinterpretation of CBC data. Current Interpretive Data was last revised on 2017. Blood 07/29/2024 11:0 1 AM SKIN CARE SPECIALIST 07/29/2024 11:34 AM SKIN CARE SPECIALIST [facility] Jaylen King MD LAB BLOOD ORDERABL ES Final Result [facility] [place] [address] * PSA screen (07/29/2024 11:01 AM SKIN CARE SPECIALIST) PSA-Total 0.55 <=3.90 ng/mL Comment: Interpretive Data [...] revised 21. Blood 07/29/2024 11:0 1 AM SKIN CARE SPECIALIST 07/29/2024 11:33 AM SKIN CARE SPECIALIST Narrative [facility] - 07/29/2024 12:39 PM SKIN CARE SPECIALIST This lab is being obtained as part of a Kidney transplant evaluation, is time sensitive, and should only be drawn during the evaluation visit at [address] Lab. Jossie King MD LAB BLOOD ORDERABL ES Final Result Performing Organization Address [facility] de Phone Number [facility] Department [place] [address] * (ABNORMAL) Iron profile w/ IBC (07/29/2024 11:01 AM SKIN CARE SPECIALIST) [facility] Iron 62 50 - 150 mcg/dL TIBC 208(L) 250 - 400 mcg/dL [facility] Transferrin saturation 30 20 - 50 % [facility] Blood 07/29/2024 11:0 1 AM SKIN CARE SPECIALIST 07/29/2024 11:33 AM SKIN CARE SPECIALIST Narrative [facility] - 07/29/2024 12:10 PM SKIN CARE SPECIALIST This lab is being obtained as part of a Kidney transplant evaluation, is time sensitive, and should only be drawn during the evaluation visit at [address] Lab. Jossie King MD LAB BLOOD ORDERABL ES Final Result Performing Organization Address [facility] de Phone Number [facility] Department [place] [address] * HIV 1/2 Antibody plus p24 Antigen Blood (07/29/2024 11:01 AM SKIN CARE SPECIALIST) [facility] HIV 1/2 ab + p24 ag Nonreactive Nonreactive Comment:Nonreactive for HIV- 1 antigen and HIV-1/HIV-2 antibodies. No laboratory evidence of HIV infection. If acute HIV infection is suspected, consider testing for HIV-1 RNA. Current interpretive data was last revised on 22. Blood 07/29/2024 11:0 1 AM SKIN CARE SPECIALIST 07/29/2024 11:32 AM SKIN CARE SPECIALIST Narrative [facility] - 07/29/2024 12:13 PM SKIN CARE SPECIALIST This lab is being obtained as part of a Kidney transplant evaluation, is time sensitive, and should only be drawn during the evaluation visit at [address] Jossie King MD LAB MICROBIOLOGY - GENERAL ORDERABLES Final Result Performing Organization Address [facility] Co de Phone Number [facility] [place] [address] * (ABNORMAL) CMV, IgG Blood (07/29/2024 11:01 AM SKIN CARE SPECIALIST) Pathologist [facility] CMV IgG Positive( A) Negative Comment: Interpretive [...] CMV infection. Blood 07/29/2024 11:0 1 AM SKIN CARE SPECIALIST 07/29/2024 11:33 AM SKIN CARE SPECIALIST Narrative [facility] - 07/29/2024 1:44 PM SKIN CARE SPECIALIST This lab is being obtained as part of a Kidney transplant evaluation, is time sensitive, and should only be drawn during the evaluation visit at [address] Jossie King MD LAB MICROBIOLOGY - GENERAL ORDERABLES Final Result Performing Organization Address [facility] de Phone Number [facility] Department [place] [address] * HLA Antibody Screen - SAB (Class I and Class II) (07/29/2024 11:01 AM SKIN CARE SPECIALIST) Class I Treatment EDTA [facility] Class I [...] DR52 H[facility] Blood 07/29/2024 11:0 1 AM SKIN CARE SPECIALIST 08/02/2024 9:46 AM SKIN CARE SPECIALIST Narrative [facility] - 08/02/2024 9:46 AM SKIN CARE SPECIALIST Single-antigen HLA antibody screen is performed on serum samples using a method developed and validated by the [facility] HLA laboratory based on an FDA-approved IVD kit (Bitcastcreen Single-Antigen, [employer], [place], [place]). All patient serum samples are pretreated with EDTA before the screen to prevent complement interference. Additional serum treatments, such as adsorption and DTT treatment, may be performed as indicated. Interpretive comments: Low risk: MFI [id number]. Moderate risk: MFI 2820-3654. Increased risk: MFI >/= 5000. The presence [...] antigens to avoid. Testing performed at the [facility] HLA Laboratory, [address] [place] [address], 5th floor, [place], [address]. CLIA # [id number]. Dorothy Meade, Ph.D., Distillery Laborer, HLA Laboratory Rell Samuels M.D., Ph.D., Customer Service Clerk, [facility] Laboratory Licha Nieto, Ph.D., KIARRA Customer Service Clerk, [facility] Clinical Laboratories Current methodology and interpretive comments last revised on 09/15/2022. Jossie King MD LAB BLOOD ORDERABL ES Final Result [facility] * (ABNORMAL) CBC with auto differential (07/29/2024 11:01 AM SKIN CARE SPECIALIST) [facility] WBC 5.1 3.8 - 9.9 K/cumm Hgb 11.5(L) 13.0 - 17.5 g/dL [facility] Hct 34.4(L) 38.9 - 50.3 % [facility] Plt 208 150 - 400 K/cumm [facility] MPV 10.8 9.1 - 12.3 fL [facility] RBC 3.76(L) 4.30 - 5.80 M/cumm [facility] MCV 91.5 81.3 - 96.4 fL [facility] MCH 30.6 27.1 - 33.3 pg [facility] MCHC 33.4 32.3 - 35.7 g/dL [facility] RDW CV 14.3 11.1 - 14.9 % [facility] RDW SD 47.9 35.7 - 48.1 fL [facility] NRBC abs 0.00 0.00 - 0.01 K/cumm [facility] Blood 07/29/2024 11:0 1 AM SKIN CARE SPECIALIST 07/29/2024 11:34 AM SKIN CARE SPECIALIST Narrative [facility] - 07/29/2024 11:45 AM SKIN CARE SPECIALIST This lab is being obtained as part of a Kidney transplant evaluation, is time sensitive, and should only be drawn during the evaluation visit at [facility] Lab. Jossie King MD LAB BLOOD ORDERABL ES Final Result [facility] Department [place] [address] * Hepatitis C antibody Blood (07/29/2024 11:01 AM SKIN CARE SPECIALIST) Hep C Ab Nonreactive Nonreactive Comment:Antibodies to HCV no t detected. Does NOT exclude the possibility of recent exposure to HCV. Current interpretive data was last revised on 22 Blood 07/29/2024 11:0 1 AM SKIN CARE SPECIALIST 07/29/2024 11:32 AM SKIN CARE SPECIALIST Narrative [facility] - 07/29/2024 12:47 PM SKIN CARE SPECIALIST This lab is being obtained as part of a Kidney transplant evaluation, is time sensitive, and should only be drawn during the evaluation visit at [address] Lab. Jossie King MD LAB MICROBIOLOGY - GENERAL ORDERABLES Final Result [facility] Department [place] [address] * (ABNORMAL) Madiha-Morris virus (EBV) antibody panel Blood (07/29/2024 11:01 AM SKIN CARE SPECIALIST) Pathologist [facility] EBV nuclear Ab Positive(A) Negative Comment:Indicates the presen ce of detectable IgG antibody to EBV Nuclear Antigen. EBV VCA IgG Positive(A) Negative [facility] Comment:Indicates the presen ce of antibody; 90% of the adult population will have been infected with EBV sometime in the past. EBV VCA IgM Negative Negative [facility] Comment:No detectable IgM an tibody to EBV-VCA. A negative result indicates no current infection with EBV. If clinical suspicion of acute EBV infection is present, testing should be repeated after one week. EBV interp Past Infection [facility] Blood 07/29/2024 11:0 1 AM SKIN CARE SPECIALIST 07/29/2024 11:33 AM SKIN CARE SPECIALIST Narrative [facility] - 07/29/2024 1:43 PM SKIN CARE SPECIALIST This lab is being obtained as part of a Kidney transplant evaluation, is time sensitive, and should only be drawn during the evaluation visit at [address] Lab. Jossie King MD LAB MICROBIOLOGY - GENERAL ORDERABLES Final Result Performing Organization Address [facility] Co de Phone Number [facility] [place] [address] * Hepatitis B core antibody, total Blood (07/29/2024 11:01 AM SKIN CARE SPECIALIST) Pathologist [facility] Hep B core IgG/IgM Nonreactive Nonreactive Blood 07/29/2024 11:0 1 AM SKIN CARE SPECIALIST 07/29/2024 11:32 AM SKIN CARE SPECIALIST Narrative [facility] - 07/29/2024 12:47 PM SKIN CARE SPECIALIST This lab is being obtained as part of a Kidney transplant evaluation, is time sensitive, and should only be drawn during the evaluation visit at [address] Lab. Jossie King MD LAB MICROBIOLOGY - GENERAL ORDERABLES Final Result Performing Organization Address [facility] [place] [address] * Protein, urine, random (07/29/2024 11:01 AM SKIN CARE SPECIALIST) Pathologist [facility] Protein, ur, quant 121.2 mg/dL Comment: Interpretive Data No reference range established. Current interpretive data was last revised 2019. Urine 07/29/2024 11:0 1 AM SKIN CARE SPECIALIST 07/29/2024 11:32 AM SKIN CARE SPECIALIST Narrative [facility] - 07/29/2024 12:18 PM SKIN CARE SPECIALIST This lab is being obtained as part of a Kidney transplant evaluation, is time sensitive, and should only be drawn during the evaluation visit at [address] Jossie King MD LAB URINE ORDERABL ES Final Result Performing Organization Address [facility] Co de Phone Number [facility] [place] [address] * Creatinine, urine, random (07/29/2024 11:01 AM SKIN CARE SPECIALIST) Pathologist [facility] Creatinine Ur 167.1 mg/dL Comment: Interpretive Data No reference range established. Current interpretive data was last revised 2019. Urine 07/29/2024 11:0 1 AM SKIN CARE SPECIALIST 07/29/2024 11:32 AM SKIN CARE SPECIALIST Narrative [facility] - 07/29/2024 12:18 PM SKIN CARE SPECIALIST This lab is being obtained as part of a Kidney transplant evaluation, is time sensitive, and should only be drawn during the evaluation visit at [address] Jossie King MD LAB URINE ORDERABL ES Final Result Performing Organization Address [facility] Co de Phone Number [facility] [place] [address] * HSV 2 IgG Antibody Blood (07/29/2024 11:01 AM SKIN CARE SPECIALIST) [facility] HSV 2 IgG Nonreactive Nonreactive Comment: Interpretive Data 1. Nonreactive: No detectable IgG antibody to HSV-2. 2. Equivocal: Presence or absence of detectable antibodies to HSV-2 cannot be determined and the test should be repeated. 3. Reactive: Indicates presence of detectable IgG antibody to HSV-2. Current interpretive data was last revised on 2022. Blood 07/29/2024 11:0 1 AM SKIN CARE SPECIALIST 07/29/2024 11:33 AM SKIN CARE SPECIALIST Narrative [facility] - 07/29/2024 1:44 PM SKIN CARE SPECIALIST This lab is being obtained as part of a Kidney transplant evaluation, is time sensitive, and should only be drawn during the evaluation visit at [address] Jossie King MD LAB MICROBIOLOGY - GENERAL ORDERABLES Final Result Performing Organization Address [facility] Co de Phone Number [facility] [place] [address] * (ABNORMAL) HSV 1 IgG Antibody Blood (07/29/2024 11:01 AM SKIN CARE SPECIALIST) [facility] HSV 1 IgG Reactive( A) Nonreactive Comment: Interpretive Data 1. Nonreactive: No detectable IgG antibody to HSV-1. 2. Equivocal: Presence or absence of detectable antibodies to HSV-1 cannot be determined and the test should be repeated. 3. Reactive: Indicates presence of detectable IgG antibody to HSV-1. Current interpretive data was last revised on 2016. Blood 07/29/2024 11:0 1 AM SKIN CARE SPECIALIST 07/29/2024 11:33 AM SKIN CARE SPECIALIST Narrative [facility] - 07/29/2024 1:44 PM SKIN CARE SPECIALIST This lab is being obtained as part of a Kidney transplant evaluation, is time sensitive, and should only be drawn during the evaluation visit at [address]. Jossie King MD LAB MICROBIOLOGY - GENERAL ORDERABLES Final Result Performing Organization Address [facility] de Phone Number [facility] Department [place] [address] * RPR Blood (07/29/2024 11:01 AM SKIN CARE SPECIALIST) Pathologist [facility] RPR Nonreactive Nonreactive Blood 07/29/2024 11:0 1 AM SKIN CARE SPECIALIST 07/29/2024 11:33 AM SKIN CARE SPECIALIST Narrative [facility] - 07/29/2024 12:34 PM SKIN CARE SPECIALIST This lab is being obtained as part of a Kidney transplant evaluation, is time sensitive, and should only be drawn during the evaluation visit at [address]. Jossie King MD LAB MICROBIOLOGY - GENERAL ORDERABLES Final Result Performing Organization Address City/[facility] Co de Phone Number [facility] [place] [address] * Hepatitis B surface antibody (immune status) Blood (07/29/2024 11:01 AM SKIN CARE SPECIALIST) Pathologist [facility] HBsAb (immune status) Reactive Comment:This result is consi stent with immunity to Hepatitis B Virus when used in the setting of routine screening. Current interpretive data was last revised on 22 Blood 07/29/2024 11:0 1 AM SKIN CARE SPECIALIST 07/29/2024 11:32 AM SKIN CARE SPECIALIST Narrative [facility] 07/29/2024 12:47 PM SKIN CARE SPECIALIST This lab is being obtained as part of a Kidney transplant evaluation, is time sensitive, and should only be drawn during the evaluation visit at [address] Lab. Jossie King MD LAB MICROBIOLOGY - GENERAL ORDERABLES Final Result Performing Organization Address [facility] de Phone Number [facility] Department [place] [address] * Hepatitis B Surface Antigen Blood (07/29/2024 11:01 AM SKIN CARE SPECIALIST) [facility] HepBsAg Nonreactive Nonreactive Blood 07/29/2024 11:0 1 AM SKIN CARE SPECIALIST 07/29/2024 11:32 AM SKIN CARE SPECIALIST Narrative [facility] 07/29/2024 12:47 PM SKIN CARE SPECIALIST This lab is being obtained as part of a Kidney transplant evaluation, is time sensitive, and should only be drawn during the evaluation visit at [address]. Jossie King MD LAB MICROBIOLOGY - GENERAL ORDERABLES Final Result Performing Organization Address [facility] de Phone Number [facility] Department [place] [address] * (ABNORMAL) aPTT (07/29/2024 11:01 AM SKIN CARE SPECIALIST) Pathologist [facility] aPTT 61(H) 28 - 38 sec Comment: Interpretive Data Heparin therapeutic range: 66.0 - 100.0 seconds. Range based on correlation with therapeutic heparin activity range of 0.3 - 0.7 Units/mL. Current interpretive data was last revised on 2023. Blood 07/29/2024 11:0 1 AM SKIN CARE SPECIALIST 07/29/2024 11:32 AM SKIN CARE SPECIALIST Narrative [facility] 07/29/2024 11:42 AM SKIN CARE SPECIALIST This lab is being obtained as part of a Kidney transplant evaluation, is time sensitive, and should only be drawn during the evaluation visit at [address] Lab. Jossie King MD LAB BLOOD ORDERABL ES Final Result Performing Organization Address [facility] Co de Phone Number [facility] [place] [address] * (ABNORMAL) Protime-INR (07/29/2024 11:01 AM SKIN CARE SPECIALIST) Pathologist [facility] PT 50.6(H) 9.7 - 13.0 sec INR 4.54(H) 0.90 - 1.20 [facility] Comment: Interpretive data Oral anticoagulant therapeutic ranges: Venous thromboembolism prophylaxis or treatment: 2.0-3.0 CARDIOLOGY Standard range: 2.0-3.0 High-intensity range: 2.5-3.5 Refer to indication-specific guidelines for appropriate target ranges for prosthetic heart valve replacement. Current interpretive data was last revised on 2019. Blood 07/29/2024 11:0 1 AM SKIN CARE SPECIALIST 07/29/2024 11:32 AM SKIN CARE SPECIALIST Narrative [facility] - 07/29/2024 11:42 AM SKIN CARE SPECIALIST This lab is being obtained as part of a Kidney transplant evaluation, is time sensitive, and should only be drawn during the evaluation visit at [address] Jossie King MD LAB BLOOD ORDERABL ES Final Result Performing Organization Address [facility] de Phone Number [facility] [place] [address] * Varicella Zoster IgG antibody Blood (07/29/2024 11:01 AM SKIN CARE SPECIALIST) Pathologist [facility] VZV IgG Reactive Reactive Comment:Reactive: Results diego ggest response to immunization or prior exposure to the virus. Blood 07/29/2024 11:0 1 AM SKIN CARE SPECIALIST 07/29/2024 11:33 AM SKIN CARE SPECIALIST Narrative [facility] - 07/29/2024 1:45 PM SKIN CARE SPECIALIST This lab is being obtained as part of a Kidney transplant evaluation, is time sensitive, and should only be drawn during the evaluation visit at [address] Jossie King MD LAB MICROBIOLOGY - GENERAL ORDERABLES Final Result [facility] Department [place] [address] * (ABNORMAL) Uric acid (07/29/2024 11:01 AM SKIN CARE SPECIALIST) Pathologist [facility] Uric acid 2.0(L) 3.0 - 8.0 mg/dL Blood 07/29/2024 11:0 1 AM SKIN CARE SPECIALIST 07/29/2024 11:33 AM SKIN CARE SPECIALIST Narrative [facility] - 07/29/2024 12:10 PM SKIN CARE SPECIALIST This lab is being obtained as part of a Kidney transplant evaluation, is time sensitive, and should only be drawn during the evaluation visit at [address]. Jossie King MD LAB BLOOD ORDERABL ES Final Result Performing Organization Address [facility] de Phone Number [facility] [place] [address] * (ABNORMAL) Phosphorus (07/29/2024 11:01 AM SKIN CARE SPECIALIST) Pathologist [facility] Phosphorus, pl 5.1(H) 2.3 - 4.5 mg/dL Blood 07/29/2024 11:0 1 AM SKIN CARE SPECIALIST 07/29/2024 11:33 AM SKIN CARE SPECIALIST Narrative [facility] - 07/29/2024 12:10 PM SKIN CARE SPECIALIST This lab is being obtained as part of a Kidney transplant evaluation, is time sensitive, and should only be drawn during the evaluation visit at [address] Jossie King MD LAB BLOOD ORDERABL ES Final Result Performing Organization Address City/[facility] Co de Phone Number [facility] Department [place] [address] * (ABNORMAL) PTH (07/29/2024 11:01 AM SKIN CARE SPECIALIST) [facility] PTH 444(H) 15 - 65 pg/mL Blood 07/29/2024 11:0 1 AM SKIN CARE SPECIALIST 07/29/2024 11:34 AM SKIN CARE SPECIALIST Narrative [facility] - 07/29/2024 12:02 PM SKIN CARE SPECIALIST This lab is being obtained as part of a Kidney transplant evaluation, is time sensitive, and should only be drawn during the evaluation visit at [address] Lab[address] Jossie King MD LAB BLOOD ORDERABL ES Final Result Performing Organization Address City/[facility] Co de Phone Number [facility] [place] [address] * (ABNORMAL) Hemoglobin A1c (07/29/2024 11:01 AM SKIN CARE SPECIALIST) [facility] Hgb A1C 9.0(H) 4.0 - 5.6 % Estimated Average Glucose 212 mg/dL [facility] Comment: The ADA recommends reporting an estimated Average Glucose (eAG) with all Hemoglobin A1c results using the equation derived from a study of 507 normal and diabetic adults. Minority populations were underrepresented and children were not included. (Diabetes Care 2020; 43(S1): S66-S76). The eAG is not equivalent to a fasting glucose. Blood 07/29/2024 11:0 1 AM SKIN CARE SPECIALIST 07/29/2024 11:34 AM SKIN CARE SPECIALIST Narrative [facility] - 07/29/2024 11:53 AM SKIN CARE SPECIALIST This lab is being obtained as part of a Kidney transplant evaluation, is time sensitive, and should only be drawn during the evaluation visit at [address] Jossie King MD LAB BLOOD ORDERABL ES Final Result Performing Organization Address City/[facility]/ZIP Co de Phone Number [facility] [place] [address] * Gamma GT (07/29/2024 11:01 AM SKIN CARE SPECIALIST) GGT 22 10 - 50 Units/L Blood 07/29/2024 11:0 1 AM SKIN CARE SPECIALIST 07/29/2024 11:33 AM SKIN CARE SPECIALIST Narrative [facility] - 07/29/2024 12:40 PM SKIN CARE SPECIALIST This lab is being obtained as part of a Kidney transplant evaluation, is time sensitive, and should only be drawn during the evaluation visit at [address] Jossie King MD LAB BLOOD ORDERABL ES Final Result Performing Organization Address [facility] de Phone Number [facility] [place] [place] [address] * (ABNORMAL) Ferritin (07/29/2024 11:01 AM SKIN CARE SPECIALIST) [facility] Ferritin 761(H) 30 - 400 ng/mL Blood 07/29/2024 11:0 1 AM SKIN CARE SPECIALIST 07/29/2024 11:33 AM SKIN CARE SPECIALIST Narrative [facility] - 07/29/2024 12:10 PM SKIN CARE SPECIALIST This lab is being obtained as part of a Kidney transplant evaluation, is time sensitive, and should only be drawn during the evaluation visit at [address] Jossie King MD LAB BLOOD ORDERABL ES Final Result Performing Organization Address [facility] de Phone Number [facility] [place] [place] [address] * (ABNORMAL) Lipid panel (07/29/2024 11:01 AM SKIN CARE SPECIALIST) [facility] Cholesterol 114 30 - 199 mg/dL [...] revised on 2018. Triglycerides 66 <=149 mg/dL [facility] Comment: Interpretive Data Ages < [...] revised on 2018. HDL 29(L) >=40 mg/dL [facility] Comment: Interpretive Data Ages < [...] on 2018. LDL, calculated 71 <=129 mg/dL [facility] Comment: Interpretive Data Ages < [...] revised on 2024. Non-HDL Cholesterol 85 mg/dL [facility] Comment: Interpretive Data Ages < [...] last revised on 2018. Chol/HDL ratio 4 [facility] Blood 07/29/2024 11:0 1 AM SKIN CARE SPECIALIST 07/29/2024 11:33 AM SKIN CARE SPECIALIST Narrative [facility] - 07/29/2024 12:10 PM SKIN CARE SPECIALIST This lab is being obtained as part of a Kidney transplant evaluation, is time sensitive, and should only be drawn during the evaluation visit at [facility] Lab. Jossie King MD LAB BLOOD ORDERABL ES Final Result [facility] Department [place] [address] * (ABNORMAL) Comprehensive metabolic panel (07/29/2024 11:01 AM SKIN CARE SPECIALIST) Sodium 136 135 - 145 mmol/L Potassium, pl 4.6 3.3 - 4.9 mmol/L [facility] Chloride 93(L) 97 - 110 mmol/L [facility] CO2 26 22 - 32 mmol/L [facility] Anion gap 17(H) 2 - 15 mmol/L [facility] BUN 65(H) 6 - 25 mg/dL [facility] Creatinine 8.07(H) 0.80 - 1.30 mg/dL [facility] Glucose 280(H) 70 - 199 mg/dL [facility] Comment: Interpretive Data Fasting glucose [...] 2022. Calcium 9.4 8.5 - 10.3 mg/dL [facility] Bilirubin, total 0.3 0.1 - 1.2 mg/dL [facility] Protein, pl 7.2 6.5 - 8.5 g/dL [facility] Albumin 3.8 3.5 - 5.0 g/dL [facility] Alk phos 99 40 - 130 Units/L [facility] ALT 30 7 - 55 Units/L [facility] AST 31 10 - 50 Units/L [facility] Blood 07/29/2024 11:0 1 AM SKIN CARE SPECIALIST 07/29/2024 11:33 AM SKIN CARE SPECIALIST Narrative [facility] - 07/29/2024 12:10 PM SKIN CARE SPECIALIST This lab is being obtained as part of a Kidney transplant evaluation, is time sensitive, and should only be drawn during the evaluation visit at [facility]. us Jossie King MD LAB BLOOD ORDERABL ES Final Result [facility] [place] [address] * (ABNORMAL) Oxalate (oxalic acid) (07/29/2024 10:53 AM SKIN CARE SPECIALIST) [facility] Signature Oxalate 12.3(H) <=2.0 mcmol/L [place] [facility] Comment: High value suggestive of Primary Hyperoxaluria. However, if the patient has chronic kidney disease (GFR<30 mL/min/1.73m2), plasma oxalate values up to 30 mcmol/L can be normal. The [facility] Hyperoxaluria Center is available to review case details and answer any questions regarding interpretation ([email or web address] [phone]) ADDITIONAL INFORMATION This test has been modified from the registered appraiser's instructions. Its performance characteristics were determined by [facility] in a manner consistent with CLIA requirements. This test has not been cleared or approved by the U.S. Food and Drug Administration. Test Performed by: [facility] [address] Building And Grounds Supervisor: Jairo Higgins Ph.D.; CLIA# [id number] Blood 07/29/2024 10:5 3 AM SKIN CARE SPECIALIST 07/29/2024 11:37 AM SKIN CARE SPECIALIST us Jossie King MD LAB BLOOD ORDERABL ES Final Result [facility] Department [place] [address] [place] [facility] * (ABNORMAL) Urinalysis reflex to microscopic (07/29/2024 10:53 AM SKIN CARE SPECIALIST) Color, ur Yellow Yellow Clarity, ur Cloudy(A) Clear [facility] Specific gravity, ur 1.022 1.003 - 1.030 [facility] pH, urine 6.0 [facility] Comment: Interpretive Data U rine pH is affected by diet, medications, systemic acid-base disturbances, and renal tubular function. pH may affect urinary stone formation. For example, urine pH below 6.0 may help reduce the tendency for calcium phosphate stones and pH greater than 6.0 may reduce the tendency for uric acid stone formation. Source: [facility] [employer] Current Interpretive Data was last revised on 2017 Protein, ur ql 2+(A) Negative [facility] Glucose, ur ql 4+(A) Negative [facility] Ketones, ur Negative Negative [facility] Bilirubin, ur Negative Negative [facility] Blood, ur 3+(A) Negative [facility] Urobilinogen, ur <2.0 <2.0 mg/dL [facility] Nitrite, ur Negative Negative [facility] Leukocyte esterase, ur 2+(A) Negative [facility] UA reflex comment Reflex to microscopic UA will be performed. [facility] Urine 07/29/2024 10:5 3 AM SKIN CARE SPECIALIST 07/29/2024 11:27 AM SKIN CARE SPECIALIST Narrative [facility] - 07/29/2024 11:29 AM SKIN CARE SPECIALIST This lab is being obtained as part of a Kidney transplant evaluation, is time sensitive, and should only be drawn during the evaluation visit at [facility]. Jossie King MD LAB URINE ORDERABL ES Final Result Performing Organization Address [facility] de Phone Number [facility] Department [place] [address] * (ABNORMAL) Urinalysis, microscopic only (07/29/2024 10:53 AM SKIN CARE SPECIALIST) WBC, ur 21-50(A) 0 - 5 /HPF RBC, ur >50(A) 0 - 2 /HPF [facility] Epithelial cells, squamous, ur 1-5 0 - 5 /HPF [facility] Bacteria, ur Trace(A) [facility] Mucous, ur Present(A) [facility] Hyaline casts, ur 1-5 0 - 10 /LPF [facility] Urine 07/29/2024 10:5 3 AM SKIN CARE SPECIALIST 07/29/2024 11:27 AM SKIN CARE SPECIALIST Jossie King MD LAB URINE ORDERABL ES Final Result Performing Organization Address [facility] Co de Phone Number [facility] Department [place] [address] * (ABNORMAL) TSH (10/27/2023 2:30 AM SKIN CARE SPECIALIST) Thyroid Stimulating Hormone 13.20(H) 0.30 - 4.20 mcIUnit/mL Blood 10/27/2023 2:30 AM SKIN CARE SPECIALIST 10/27/2023 2:42 AM SKIN CARE SPECIALIST Lorne Mcnulty MD LAB BLOOD ORDERABLES Final Result [facility] [address] Department [place] [address] from Last 3 Months or Most Recently Relevant to Health Maintenance Insurance [employer] [facility] Address: [address] [address] [place] [address] [employer] [facility] Address: [address] [address] [place] [address] [employer] RISK [employer] Advance Directives For more information, please contact: [phone] * Full Code (Latest Code Status on File) Date Activated Date Inactivated Comments 10/13/2023 11:32 PM 11/03/2023 11:42 PM * Full Code Date Activated Date Inactivated Comments 06/05/2022 6:17 AM 06/29/2022 6:20 PM * Full Code Date Activated Date Inactivated Comments 06/05/2022 4:43 AM 06/05/2022 4:43 AM * Full Code Date Activated Date Inactivated Comments 06/04/2022 9:55 PM 06/05/2022 4:43 AM Care Teams News Videographer Relationship Specialty Start Date End Date Aditya Castro MD [address] [place] [address] [place] [address] PCP - General 10/17/19 Alondra Lambert, RN [address] [facility] [address] [place] [address] Power Plant Superintendent 03/06/24 Hamlet Ortega Jr., MD [address] [place] [address] Consulting Physician Cardiovascular Disease 05/10/24 Leandro Reyes MD [address] [place] [id number] Consulting Physician Nephrology 07/30/24
--- OUTSIDE RECORDS SUMMARY | 2024-10-24 17:53 | XMS_ITS | Patient Health Summary ---
Author Organization [facility] Address [address] [place] [address] Care Team Providers Care Paste Mixer Name Role Phone Aditya Castro Primary Care Provider Unavailab le Note from [facility],non-owned Affiliates and Associated Physician Practices is amultiple site organization consisting of ambulatory clinics and hospital sitesin [place], [place]. This disclosure is being madepursuant to the Care Everywhere program and may not contain all information available regarding this patient. Last updated 18.[facility] Allergies * Allopurinol(Other) -High Criticality * Contrast-Iodinated [...] as needed * vitamin D, ergocalciferol, (DRISDOL) 44976 units capsule(Started 02/13/2019) Take 50,000 Units by [...] propionate (FLONASE) 50 MCG/ACT nasal spray(Started 04/24/2019) Morton 1 spray into each nostril once daily * epoetin (PROCRIT) 71835 UNIT/ML injection Inject subcutaneously every 14 days [...] Comments Blood Pressure 140/60 07/13/2020 1:30 PM MUSEUM TOUR GUIDE Pulse 65 07/13/2020 1:30 PM MUSEUM TOUR GUIDE Temperature 36.1 C (97 F) 07/13/2020 1:30 PM MUSEUM TOUR GUIDE Respiratory Rate 20 07/13/2020 1:30 PM MUSEUM TOUR GUIDE Oxygen Saturation 95% 07/13/2020 1:30 PM MUSEUM TOUR GUIDE Inhaled Oxygen Concentration - - Weight 134.3 kg (296 lb) 07/13/2020 1:30 PM MUSEUM TOUR GUIDE Height 176.5 cm (5' 9.5 ) 07/13/2020 1:30 PM MUSEUM TOUR GUIDE Body Mass Index 43.08 07/13/2020 1:30 PM M[facility]UM TOUR GUIDE Procedures * CARDIAC EKG ORDER(Performed 05/18/2020) * [...] Pre-transplant evaluation for kidney transplant * PROTHROMBIN [id number] PANEL(Performed 05/14/2020) Performed for Pre-transplant evaluation for [...] cause, unspecified chronicity, unspecified site, [place], unspecifiedtype ([facility]) * CARDIAC PROCEDURE ORDER(Performed 11/27/2018) * CARDIAC [...] complication, with long-term current use of insulin ([facility]) * BASIC METABOLIC PANEL (CALCIUM TOTAL)(Performed 11/23/2018) Performed for 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[place] heart with stable angina pectoris, unspecified vessel or lesion type ([facility]) * GLUCOSE - POINT OF CARE(Performed 11/22/2018) * GLUCOSE - POINT OF CARE(Performed 11/22/2018) * GLUCOSE - POINT OF CARE(Performed 11/22/2018) * GLUCOSE - POINT OF CARE(Performed 11/22/2018) * CARDIAC CATH(Performed 11/22/2018) * GLUCOSE - POINT OF CARE(Performed 11/22/2018) * BASIC METABOLIC PANEL (CALCIUM TOTAL)(Performed 11/22/2018) Performed for 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[place] heart with stable angina pectoris, unspecified vessel or lesion type ([facility]) * CARDIAC CATH CONSULT(Performed 11/22/2018) * XR [...] calcifications. Dictated by Ash Moreira MD (radiology ct technologist). I, Dr. HANNAH SPENCE have personally reviewed [...] calcifications. Dictated by Ash Moreira MD (radiology ct technologist). I, Dr. HANNAH SPENCE have personally reviewed [...] Resolution DRB1-1 04 05/29/2020 7:59 AM CDT [facility] ([facility]) DR DQ Low Resolution DRB1-2 11 05/29/2020 7:59 AM CDT [facility] ([facility]) DR DQ Low Resolution DQB1-1 03 (DQ7) 05/29/2020 7:59 AM CDT [facility] ([facility]) DR DQ Low Resolution DQB1-2 03 (DQ8) 05/29/2020 7:59 AM CDT [facility] ([facility]) DR DQ Low Resolution DRB3-1 02 05/29/2020 7:59 AM CDT [facility] ([facility]) DR DQ Low Resolution DRB3-2 Negative 05/29/2020 7:59 AM CDT [facility] ([facility]) DR DQ Low Resolution DRB4-1 01 05/29/2020 7:59 AM CDT [facility] ([facility]) DR DQ Low Resolution DRB4-2 Negative 05/29/2020 7:59 AM CDT [facility] ([facility]) DR DQ Low Resolution DRB5-1 Negative 05/29/2020 7:59 AM CDT [facility] ([facility]) DR DQ Low Resolution DRB5-2 Negative 05/29/2020 7:59 AM CDT [facility] ([facility]) DR DQ Low Resolution Methodology SSOP 05/29/2020 7:59 AM CDT [facility] ([facility]) Comment DR DQ Low Resolution - 05/29/2020 7:59 AM CDT [facility] ([facility]) DR DQ Low Resolution test date 05/28/2020 05/29/2020 7:59 AM CDT [facility] ([facility]) Comment: This test was developed and its performance characteristics determined by the [facility]. It has not been cleared [...] high complexity clinical laboratory testing. CLIA ID# [id number] Performed at: [facility], [address] @ [facility] [place] [address] Vending Technician: Jarrod Chin MD, Blood BLOOD SPECIMEN / Unknown Lab Venipuncture / Unknown 05/14/2020 10:18 AM CDT 05/14/2020 10:52 AM CDT Glenny Martin MD LAB - BLOOD BAN K ORDERABLES [facility] ([facility]) [address] [place] [address], [facility] * HLA TYPING DNA LOW RESOLUTION A,B,C (05/14/2020 10:18 AM CDT) ABC DNA A1 03 05/29/2020 7:59 AM CDT [facility] ([facility]) ABC DNA A2 29 05/29/2020 7:59 AM CDT [facility] ([facility]) ABC DNA B1 07 05/29/2020 7:59 AM CDT [facility] ([facility]) ABC DNA B2 44 05/29/2020 7:59 AM CDT [facility] ([facility]) ABC DNA BW1 6 05/29/2020 7:59 AM CDT [facility] ([facility]) ABC DNA BW2 4 05/29/2020 7:59 AM CDT [facility] ([facility]) ABC DNA C1 07 05/29/2020 7:59 AM CDT [facility] ([facility]) ABC DNA C2 - 05/29/2020 7:59 AM CDT [facility] ([facility]) ABC DNA Methodology SSOP 05/29 7:59 AM CDT [facility] ([facility]) Comment ABC DNA - 0 7:59 AM CDT [facility] ([facility]) ABC DNA Test Date 0 05/29/2020 7:59 AM CDT [facility] ([facility]) Comment: This test was developed and its performance characteristics determined by the [facility]. It has not been cleared or approved [...] high complexity clinical laboratory testing. CLIA ID# [id number] Performed at: [facility], [address] @ [place] [address] Vending Technician: Jarrod Chin MD, Blood BLOOD SPECIMEN / Unknown Lab Venipuncture / Unknown 05/14/2020 10:18 AM CDT 05/14/2020 10:52 AM CDT Glenny Martin MD LAB - BLOOD BAN K ORDERABLES Performing Organization Address [facility] de Phone Number [facility] ([facility]) [address] [place] [address], [place] * HLA ANTIBODY SCREEN LUM CLASS 2 ID (05/14/2020 10:18 AM CDT) % PRA 90 05/29/2020 7:59 AM CDT [facility] ([facility]) Class 2 LUM Specificity - 05/29/2020 7:59 AM CDT [facility] ([facility]) Class 2 LUM Test Date 0 05/29/2020 7:59 AM CDT [facility] ([facility]) Comment: This test was developed and its performance characteristics determined by the [facility]. It has not been cleared [...] high complexity clinical laboratory testing. CLIA ID# [id number] Performed at: [facility], [address] @ [place] [address] Vending Technician: Jarrod Chin MD, Blood BLOOD SPECIMEN / Unknown Lab Venipuncture / Unknown 05/14/2020 10:18 AM CDT 05/14/2020 10:52 AM CDT Glenny Martin MD LAB - BLOOD BAN K ORDERABLES Performing Organization Address City/[facility]/ZIP Co de Phone Number [facility] ([facility]) [address] [place] [address], [place] * HLA ANTIBODY SCREEN LUM CLASS 1 ID (05/14/2020 10:18 AM CDT) % PRA 4 05/29/2020 7:59 AM CDT [facility] ([facility]) Class 1 LUM Specificity - 05/29/2020 7:59 AM CDT [facility] ([facility]) Class 1 LUM Test Date 0 05/29/2020 7:59 AM CDT [facility] ([facility]) Comment: This test was developed and its performance characteristics determined by the [facility]. It has not been cleared or approved [...] high complexity clinical laboratory testing. CLIA ID# [id number] Performed at: [facility], [address] @ [place] [address] Vending Technician: Jarrod Chin MD, Blood BLOOD SPECIMEN / Unknown Lab Venipuncture / Unknown 05/14/2020 10:18 AM CDT 05/14/2020 10:52 AM CDT Glenny Martin MD LAB - BLOOD BAN K ORDERABLES [facility] ([facility]) [address] [place] [address], [facility] * HIV-1 HIV-2 ANTIGEN/ANTIBODY (05/14/2020 10:18 AM CDT) HIV Antigen/Antibod y 1 & 2 Non-reacti ve Non-react bianca 05/14/2020 11:49 AM CDT [facility] Comment:Neither HIV-1 p24 An tigen nor HIV-1/HIV-2 Antibodies are detected. Blood BLOOD SPECIMEN / Unknown Lab Venipuncture / Unknown 05/14/2020 10:18 AM CDT 05/14/2020 10:57 AM CDT Glenny Martin MD LAB - HEMATOLOG Y ORDERABLES [place] [address] [place] [address] [phone] * CANNABINOID SCREEN BLOOD (05/14/2020 10:18 AM CDT) Marijuana Metabolites Negative 05/17/2020 12:06 AM CDT [facility]) Comment:REFERENCE RANGE: thr shold: 5 ng/mL Specimen Type Comment 05/17/2020 12:06 AM CDT [facility] ([facility]) Comment: WHOLE BLOOD This specimen was screened by immunoassay at the thresholds listed above. Presumptive positive results have not been confirmed by an alternate method; results are intended for clinical medical purposes. Please contact the laboratory if confirmatory testing is desired. This test was developed and its performance characteristics determined by [employer]. It has not been cleared or approved by the Food and Drug Administration. Blood BLOOD SPECIMEN / Unknown Lab Venipuncture / Unknown 05/14/2020 10:18 AM CDT 05/14/2020 10:53 AM CDT Narrative [facility] ([facility]) - 05/17/2020 12:06 AM CDT Performed at: [facility] [employer] [address] [place] [address] [id number] Vending Technician: Radha Callahan [facility], Phone: [phone] Glenny Martin MD LAB - CHEMISTRY ORDERABLES Performing Organization Address [facility]/ZIP Co de Phone Number [facility] ([facility]) [address] [place] [address] * COCAINE METABOLITE QUANT (05/14/2020 10:18 AM CDT) Cocaine and Metabolite Blood <20 ng/mL 05/17/2020 11:07 PM CDT [facility] ([facility]) Comment: INTERPRETIVE INFORMATION: Cocaine Metabolite, Serum or Plasma, Quantitative Methodology: Quantitative Gas Chromatography- Mass Spectrometry Positive cutoff: 20 ng/mL For medical purposes only; not valid for forensic use. The concentration value must be greater than or equal to the cutoff to be reported as positive. Interpretive questions should be directed to the laboratory. Test developed and characteristics determined by [employer] [facility]. See Compliance Statement B: [email or web address] Performed By: [facility] [address] [place] [address] Evp Managing Director: Valerie Mast MD Blood BLOOD SPECIMEN / Unknown Lab Venipuncture / Unknown 05/14/2020 10:18 AM CDT 05/14/2020 10:55 AM CDT Glenny Martin MD LAB - CHEMISTRY ORDERABLES Performing Organization Address City/[facility] Co de Phone Number [facility] ([facility]) [address] [place], [place] [address] * SYPHILIS ANTIBODY CASCADING REFLEX (05/14/2020 10:18 AM CDT) [facility] Treponema pallidum Antibody Non-react bianca Non-react bianca 05/14/2020 11:47 AM CDT [facility] Comment: No Laboratory evidence of syphilis infection. Note: Circulating antibodies may be low or undetectable in early infection. If recent exposure is suspected, re-draw sample in 2-4 weeks and repeat testing. Blood BLOOD SPECIMEN / Unknown Lab Venipuncture / Unknown 05/14/2020 10:18 AM CDT 05/14/2020 10:55 AM CDT Glenny Martin MD LAB - SEROLOGY ORDERABLES Performing Organization Address City/[facility] Co de Phone Number [facility] [address] [address], [facility] [phone] * AMPHETAMINE BLOOD CONFIRMATION (05/14/2020 10:18 AM CDT) Pathologist [facility] Amphetamines Confirmation <20 ng/mL 05/20/2020 12:29 PM CDT [facility] ([facility]) Comment: INTERPRETIVE INFORMATION: Amphetamines, Serum or Plasma, [...] laboratory. Test developed and characteristics determined by [employer]. See Compliance Statement B: [email or web address] Methamphetamine Confirmation <20 ng/mL 05/20/2020 12:29 PM CDT [facility] ([facility]) MDA Confirmation <20 ng/mL 05/20/20 20 12:29 PM CDT [facility] ([facility]) MDMA Confirm <20 ng/mL 05/20/2020 12:29 PM CDT [facility] ([facility]) MDEA Confirmation <20 ng/mL 020 12:29 PM CDT [facility] ([facility]) Comment: Performed By: [employer] [facility] [facility] [address] [place] [address] Evp Managing Director: Valerie Mast MD Blood BLOOD SPECIMEN / Unknown Lab Venipuncture / Unknown 05/14/2020 10:18 AM CDT 05/14/2020 10:57 AM CDT Glenny Martin MD LAB - CHEMISTRY ORDERABLES [facility] ([facility]) [address] * (ABNORMAL) PTH INTACT ([facility]) (05/14/2020 10:18 AM CDT) [facility] PTH Intact 653.3(H) 8.0 - 77.0 pg/mL 05/14/2020 11:34 AM CDT [facility] Blood BLOOD SPECIMEN / Unknown Lab Venipuncture / Unknown 05/14/2020 10:18 AM CDT 05/14/2020 10:55 AM CDT Glenny Martin MD LAB - CHEMISTRY ORDERABLES [address] [address], [facility] [phone] * OPIATES BLOOD (05/14/2020 10:18 AM CDT) [facility] Opiates Screen Negative 05/17/2020 12:06 AM CDT [facility] ([facility]) Comment:REFERENCE RANGE: thr shold: 10 ng/mL Oxycodone Screen Negative 05/17/20 12:06 AM CDT [facility] ([facility]) Comment:REFERENCE RANGE: thr shold: 10 ng/mL Specimen Type Comment 05/17/2020 12:06 AM CDT [facility]) Comment: WHOLE BLOOD This specimen was [...] AM CDT 05/14/2020 10:53 AM CDT N[facility]ative [facility] ([facility]) - 05/17/2020 12:06 AM CDT Performed at: [facility] [employer] [address] [id number] Vending Technician: Radha Callahan [facility], Phone: [phone] Glenny Martin MD LAB - CHEMISTRY ORDERABLES Performing Organization Address [facility] Co de Phone Number [facility] ([facility]) [address] [place] [address] * (ABNORMAL) URIC ACID BLOOD (05/14/2020 10:18 AM CDT) Only the most recent of2 resultswithin the time period is included. Uric Acid 8.4(H) 2.6 - 7.2 mg/dL 05/14/2020 11:41 AM CDT [facility] Blood BLOOD SPECIMEN / Unknown Lab Venipuncture / Unknown 05/14/2020 10:18 AM CDT 05/14/2020 10:55 AM CDT Glenny Martin MD LAB - CHEMISTRY ORDERABLES Performing Organization Address City/[facility]/ZIP Co de Phone Number [address] [address], [facility] [phone] * PROTHROMBIN [id number] PANEL (05/14/2020 10:18 AM CDT) [facility] Signature Prothrombin [id number] Negative 05/21/2020 8:19 PM CDT [facility] ([facility]) Comment: Indication for testing: Assess genetic risk for thrombosis. NEGATIVE: The Factor II, prothrombin F31682E mutation, was not detected. Other causes of [...] Cui, Ph.D. BACKGROUND INFORMATION: Prothrombin (F2) c.*97G>A (L64763J) Pathogenic Variant CHARACTERISTICS: The Factor II, c.*97G>A (B92442N) pathogenic variant is a common genetic risk [...] CAUSE: Homozygosity or heterozygosity for F2 c.*97G>A (V91622I). PATHOGENIC VARIANT TESTED: F2 c.*97G>A (X52378A). CLINICAL SENSITIVITY FOR VENOUS THROMBOSIS: Approximately 10 percent. METHODOLOGY: Polymerase chain reaction and fluorescence monitoring. ANALYTICAL SENSITIVITY AND SPECIFICITY: 99 percent. LIMITATIONS: Diagnostic errors can occur due to rare sequence variations. F2 gene variants, other than c.*97G>A (U66357U), will not be detected. This test was developed and its performance characteristics determined by [employer]. It has not been cleared or approved by the [place] Food and Drug Administration. This test was performed in a CLIA certified laboratory and is intended for clinical purposes. Counseling and informed consent are recommended for genetic testing. Consent forms are available online. Performed by [facility], [address] [place] [address] [email or web address], Valerie Mast MD, Lab. Director Source PT [id number] PCR Whole Blood 05/21/2020 8:19 PM CDT [facility] ([facility]) Blood BLOOD SPECIMEN / Unknown Lab Venipuncture / Unknown 05/14/2020 10:18 AM CDT 05/14/2020 10:48 AM CDT Sourav Moscoso MD LAB - COAGULATION OR DERABLES [facility] ([facility]) [address] [place] [address], [facility] * (ABNORMAL) PROTEIN S ANTIGEN (05/14/2020 10:18 AM CDT) [facility] Protein S Antigen Total 177(H) 60 - 150 % 05/16/2020 2:07 AM CDT [facility] ([facility]) Comment: This test was developed and its performance characteristics determined by [facility]. It has not been cleared or approved by the Food and Drug Administration. Total Protein S Antigen is an acute phase reactant protein and can be elevated in inflammatory states. Protein S Free 179(H) 57 - 157 % 05/16/2020 2:07 AM CDT [facility] ([facility]) Comment: This test was developed and its performance characteristics determined by [facility]. It has not been cleared or approved by the Food and Drug Administration. Blood BLOOD SPECIMEN / Unknown Lab Venipuncture / Unknown 05/14/2020 10:18 AM CDT 05/14/2020 10:48 AM CDT Narrative [facility] ([facility]) - 05/16/2020 2:07 AM CDT Performed at: [address] [place] [id number] Vending Technician: Con Grimaldo MD, Phone: [phone] Sourav Moscoso MD LAB - COAGULATION OR DERABLES [facility] ([facility]) [address] [place] [address] * STRONGYLOIDES ANTIBODY IGG (05/14/2020 10:18 AM CDT) Strongyloides Antibody IgG 0.2 <=0.9 IV 05/17/2020 10:58 PM CDT [facility] ([facility]) Comment: INTERPRETIVE INFORMATION: Strongyloides Ab, IgG [...] also result in false-positive results. Performed By: [employer] [facility] [facility] [address] [place] [address] Evp Managing Director: Valerie Mast MD Blood BLOOD SPECIMEN / Unknown Lab Venipuncture / Unknown 05/14/2020 10:18 AM CDT 05/14/2020 10:55 AM CDT Glenny Matrin MD LAB - SEROLOGY ORDERABLES Performing Organization Address [facility] de Phone Number [facility] ([facility]) [address] * FACTOR V LEIDEN MUTATION PANEL (05/14/2020 10:18 AM CDT) Factor V Leiden Source Whole Blood 05/21/2020 4:02 PM CDT [facility] ([facility]) Factor V Leiden PCR/FRET Negative 05/21/2020 4:02 PM CDT [facility] ([facility]) Comment: Indication for testing: Assess genetic risk for thrombosis. NEGATIVE: The factor V Leiden variant, c.1601G>A; p.[id number], was not detected. This does not exclude [...] function in the F5 gene variant c.1601G>A (p.[id number]). Legacy nomenclature: [id number] (1691G>A) CLINICAL SENSITIVITY: 20-50 percent of individuals with an isolated VTE have the FVL variant. METHODOLOGY: Polymerase chain reaction and fluorescence monitoring. ANALYTICAL SENSITIVITY AND SPECIFICITY: 99 percent. LIMITATIONS: Diagnostic errors can occur due to rare sequence variations. F5 gene mutations, other than p.[id number], will not be detected. This test was developed and its performance characteristics determined by [employer]. It has not been cleared or approved by the US Food and Drug Administration. This test was performed in a CLIA certified laboratory and is intended for clinical purposes. Counseling and informed consent are recommended for genetic testing. Consent forms are available online. Performed by [employer] [facility], [address] [facility] [place] [facility] [address] [email or web address], Valerie Mast MD, Lab. Director Blood BLOOD SPECIMEN / Unknown Lab Venipuncture / Unknown 05/14/2020 10:18 AM CDT 05/14/2020 10:49 AM CDT Sourav Moscoso MD LAB - COAGULATION OR DERABLES Performing Organization Address [facility] Co de Phone Number [facility]) [address] * CARDIOLIPIN ANTIBODY IGM (05/14/2020 10:18 AM CDT) [facility] Cardiolipin Antibody IgM 0 0 - 12 MPL 05/17/2020 12:33 AM CDT [facility] ([facility]) Comment: INTERPRETIVE INFORMATION: Anti-Cardiolipin IgM 0-12 MPL: [...] other criteria phospholipid antibody tests. Performed By: [employer] [facility] [facility] [address] [place] [address] Evp Managing Director: Valerie Mast MD Blood BLOOD SPECIMEN / Unknown Lab Venipuncture / Unknown 05/14/2020 10:18 AM CDT 05/14/2020 10:57 AM CDT Sourav Moscoso MD LAB - SEROLOGY ORDER ROVERTO Performing Organization Address [facility]/ZIP Co de Phone Number [facility] ([facility]) [address] * CARDIOLIPIN ANTIBODY IGG (05/14/2020 10:18 AM CDT) Cardiolipin Antibody IgG 2 0 - 14 GPL 05/17/2020 12:32 AM CDT [facility] ([facility]) Comment: INTERPRETIVE INFORMATION: Anti-Cardiolipin IgG Ab 0-14 [...] other criteria phospholipid antibody tests. Performed By: [employer] [facility] [address] [place] [address] Evp Managing Director: Valerie Mast MD Blood BLOOD SPECIMEN / Unknown Lab Venipuncture / Unknown 05/14/2020 10:18 AM CDT 05/14/2020 10:58 AM CDT Sourav Moscoso MD LAB - SEROLOGY ORDER ROVERTO [facility]) [address] * CYTOMEGALOVIRUS ANTIBODY IGG BLOOD (05/14/2020 10:18 AM CDT) Cytomegalovirus Antibody IgG >10.00 U/mL 05/16/2020 6:28 PM CDT [facility] ([facility]) Comment: INTERPRETIVE INFORMATION: Cytomegalovirus Antibody, IgG 0.59 [...] laboratory at the same time. Performed By: [employer] [facility] [address] [place] [address] Evp Managing Director: Valerie Mast MD Blood BLOOD SPECIMEN / Unknown Lab Venipuncture / Unknown 05/14/2020 10:18 AM CDT 05/14/2020 10:55 AM CDT Glenny Martin MD LAB - CHEMISTRY ORDERABLES [facility]) [address] [place] [address], [facility] * RUBELLA ANTIBODY IGG TITER (05/14/2020 10:18 AM CDT) Rubella Antibody IgG 50.1 IU/mL 05/16/2020 6:32 PM CDT [facility] [employer] ([facility]) Comment: INTERPRETIVE INFORMATION: Rubella Antibody, IgG Less [...] the amount of antibody present. Performed By: [employer] [address] [place] [address] Evp Managing Director: Valerie Mast MD Blood BLOOD SPECIMEN / Unknown Lab Venipuncture / Unknown 05/14/2020 10:18 AM CDT 05/14/2020 10:56 AM CDT Glenny Martin MD LAB - SEROLOGY ORDERABLES Performing Organization Address City/[facility]/ZIP Co de Phone Number [facility]) [address] [place] [address] * RUBEOLA ANTIBODY IGG (05/14/2020 10:18 AM CDT) [facility] Measles (Rubeola) Antibody IgG >300.0 AU/mL 05/16/2020 2:46 PM CDT [facility] ([facility]) Comment: INTERPRETIVE INFORMATION: Measles (Rubeola) Antibody, [...] laboratory at the same time. Performed By: [employer] [address] [place] [address] Evp Managing Director: Valerie Mast MD Blood BLOOD SPECIMEN / Unknown Lab Venipuncture / Unknown 05/14/2020 10:18 AM CDT 05/14/2020 10:57 AM CDT Glenny Martin MD LAB - CHEMISTRY ORDERABLES Performing Organization Address City/[facility]/ZIP Co de Phone Number [facility]) [address] [place] [address] * MUMPS ANTIBODY IGG (05/14/2020 10:18 AM CDT) [facility] Mumps Virus Antibody IgG 17.2 AU/mL 05/16/2020 6:30 PM CDT [facility] [employer] ([facility]) Comment: INTERPRETIVE INFORMATION: Mumps Ab, IgG by [facility] 8.9 AU/mL or less .... Negative - [...] laboratory at the same time. Performed By: [employer] [address] [place] [address] Evp Managing Director: Valerie Mast MD Blood BLOOD SPECIMEN / Unknown Lab Venipuncture / Unknown 05/14/2020 10:18 AM CDT 05/14/2020 10:57 AM CDT Glenny Martin MD LAB - CHEMISTRY ORDERABLES [facility]) [address] [place] [address] * VARICELLA ZOSTER ANTIBODY IGG (05/14/2020 10:18 AM CDT) [facility] Varicella zoster Virus Antibody IgG 3705.0 IV 05/16/2020 2:46 PM CDT [facility] ([facility]) Comment: INTERPRETIVE INFORMATION: VZV Ab, IgG [...] laboratory at the same time. Performed By: [employer] [address] [place] [address] Evp Managing Director: Valerie Mast MD Blood BLOOD SPECIMEN / Unknown Lab Venipuncture / Unknown 05/14/2020 10:18 AM CDT 05/14/2020 10:57 AM CDT Glenny Martin MD LAB - CHEMISTRY ORDERABLES Performing Organization Address [facility] de Phone Number [facility]) [address] [place] [address] * PROTEIN C ACTIVITY (05/14/2020 10:18 AM CDT) Pathologist [facility] Protein C Activity 155 83 - 168 % 05/16/2020 10:47 PM CDT [facility] [employer] ([facility]) Comment: INTERPRETIVE INFORMATION: Protein C, Functional Patients [...] reference intervals for this test in the [facility] Test [facility] ([facility]). Performed by [employer], [address] [place] [address] [email or web address], Valerie Mast MD, Lab. Director Blood BLOOD SPECIMEN / Unknown Lab Venipuncture / Unknown 05/14/2020 10:18 AM CDT 05/14/2020 10:48 AM CDT Glenny Martin MD LAB - COAGULATI ON ORDERABLES Performing Organization Address City/[facility] Co de Phone Number [facility]) [address] * TRANSFERRIN (05/14/2020 10:18 AM CDT) Pathologist [facility] Transferrin 245 174 - 382 mg/dL 05/14/2020 11:41 AM CDT [facility] Transferrin Saturation % 27 16 - 50 % 05/14/2020 11:41 AM CDT [facility] Blood BLOOD SPECIMEN / Unknown Lab Venipuncture / Unknown 05/14/2020 10:18 AM CDT 05/14/2020 10:57 AM CDT Glenny Martin MD LAB - CHEMISTRY ORDERABLES [place] [id number] [place] [phone], [facility] [phone] * TOXOPLASMA GONDII ANTIBODY IGG (05/14/2020 10:18 AM CDT) Toxoplasma Antibody IgG <3.0 IU/mL 05/16/2020 6:32 PM CDT [facility] [employer] ([facility]) Comment: INTERPRETIVE INFORMATION: Toxoplasma Ab, IgG 7.1 [...] the amount of antibody present. Performed By: [employer] [address] [place] [address] Evp Managing Director: Valerie Mast MD Blood BLOOD SPECIMEN / Unknown Lab Venipuncture / Unknown 05/14/2020 10:18 AM CDT 05/14/2020 10:58 AM CDT Glenny Martin MD LAB - CHEMISTRY ORDERABLES [facility]) [address] * (ABNORMAL) MADIHA-MORRIS VIRUS ANTIBODY TO VCA IGG (05/14/2020 10:18 AM CDT) Madiha-Morris Virus Antibody IgG Viral Capsid Antigen 115.0(H) 0.0 - 21.9 U/mL 05/16/2020 5:10 PM CDT [facility] [employer] ([facility]) Comment: INTERPRETIVE INFORMATION: Madiha-Morris Virus Antibody to Viral Capsid Antigen, IgG 17.9 U/mL or less.......Not Detected 18.0-21.9 U/mL..........Indeterminate - Repeat testing in 10-14 days may be helpful. 22.0 U/mL or greater....Detected Performed By: [employer] [address] [place] [address] Evp Managing Director: Valerie Mast MD Blood BLOOD SPECIMEN / Unknown Lab Venipuncture / Unknown 05/14/2020 10:18 AM CDT 05/14/2020 10:55 AM CDT Glenny Martin MD LAB - CHEMISTRY ORDERABLES [employer] ([facility]) [address] [place] [address], [facility] * (ABNORMAL) HEMOGLOBIN A1C (05/14/2020 10:18 AM CDT) Only the most recent of2 resultswithin the time period is included. Hemoglobin A1c 7.7(H) 4.4 - 6.3 % 05/14/2020 3:37 PM CDT [facility] Estimated Average Glucose 174 mg/dL 05/14/2020 3:37 PM T [facility] Comment: HbA1c Interpretation: Treatment target values recommended by ADA and other clinical organizations should be used to evaluate metabolic control in patients. Treatment Target Values: Normal : < 5.7% Pre-diabetes: 5.7-6.4% Diabetes: Equal to or greater than 6.5% Reference: [place] Diabetes Association Standards of Care in Diabetes -2014 In patients 70 years and older consider HbA1c target range of 7.0-7.5% Reference: Diabetes Mellitus in Older People: Position Statement on behalf of the International Association of Gerontology and Geriatrics (IAGG), the Diabetes Working Alliance Party for Older People (EDWPOP), and the International Task Force of Experts in Diabetes. Hermelindo Remy et al. J [place] [employer]. 2012 Test results diagnostic of diabetes should be repeated for confirmation. The Sebia Capillary 2 assay for the measurement of HbA1c is a National Glycohemoglobin Standardization Program (NGSP)certified method. Blood BLOOD SPECIMEN / Unknown Lab Venipuncture / Unknown 05/14/2020 10:18 AM CDT 05/14/2020 10:55 AM CDT Glenny Martin MD LAB - CHEMISTRY ORDERABLES Performing Organization Address [facility]/ZIP Co de Phone Number [address] [address], [facility] [phone] * (ABNORMAL) HOMOCYSTEINE BLOOD QUANTITATIVE (05/14/2020 10:18 AM CDT) Homocysteine 21.1(H) 4.4 - 16.2 umol/L 05/14/2020 11:51 AM CDT [facility] Blood BLOOD SPECIMEN / Unknown Lab Venipuncture / Unknown 05/14/2020 10:18 AM CDT 05/14/2020 10:48 AM CDT Sourav Moscoso MD LAB - CHEMISTRY SUSANNAH LEONE Performing Organization Address [facility] Co de Phone Number [address] [address], [place] [phone] * ANTITHROMBIN III ACTIVITY (05/14/2020 10:18 AM CDT) Pathologist [facility] AT III Activity 125 76 - 128 % 0 9:[address] [facility]) Comment: REFERENCE INTERVAL: Antithrombin, Enzymatic (Activity) Access complete set of age- and/or gender-specific reference intervals for this test in the [facility] Test Directory ([facility]). Performed by [employer], [address] [place] [id number] [email or web address], Valerie Mast MD, Lab. Director Blood BLOOD SPECIMEN / Unknown Lab Venipuncture / Unknown 05/14/2020 10:18 AM CDT 05/14/2020 10:51 AM CDT Sourav Moscoso MD LAB - COAGULATION OR DERABLES Performing Organization Address City/[facility]/ZIP Co de Phone Number [facility]) [address] [place] [address], [facility] * (ABNORMAL) VITAMIN D 25-HYDROXY (05/14/2020 10:18 AM CDT) Only the most recent of2 resultswithin the time period is included. Vitamin D, 25 Hydroxy 23.0(L) See comment: ng/mL 05/14/2020 11:48 AM CDT [facility] Comment: The recommendations for [...] LAB - CHEMISTRY ORDERABLES Performing Organization Address City/[facility]/ZIP Co de Phone Number [address] [address], [facility] [phone] * BLOOD TYPE ABO+ RH PANEL (05/14/2020 10:18 AM CDT) Pathologist [facility] ABO Rh A POS 05/14/2020 12:11 PM CDT [facility] Blood BLOOD SPECIMEN / Unknown Lab Venipuncture / Unknown 05/14/2020 10:18 AM CDT 05/14/2020 11:29 AM CDT Glenny Martin MD LAB - BLOOD BAN K ORDERABLES [facility] [address] [place] [phone], [facility] [phone] * NICOTINE + METABOLITES BLOOD (05/14/2020 10:18 AM CDT) Nicotine <2 ng/mL 05/18/2020 10:08 PM CDT [facility] ([facility]) Comment: Consistent with abstinence from nicotine-containing [...] positive. Test developed and characteristics determined by [employer]. See Compliance Statement B: [email or web address] Performed By: [employer] [address] [place] [address] Evp Managing Director: Valerie Mast MD 3-Hydroxy Cotinine <2 ng/mL 2019 10:08 PM CDT [facility]) Cotinine <2 ng/mL 05/18/2020 10:08 PM CDT [facility]) Blood BLOOD SPECIMEN / Unknown Lab Venipuncture / Unknown 05/14/2020 10:18 AM CDT 05/14/2020 10:57 AM CDT Glenny Martin MD LAB - CHEMISTRY ORDERABLES [facility]) [address] * (ABNORMAL) CBC W AUTO DIFFERENTIAL (05/14/2020 10:18 AM CDT) Only the most recent of2 resultswithin the time period is included. WBC 5.0 3.5 - 10.5 10 3/uL 05/14/2020 11:03 AM CDT [facility] RBC 3.45(L) 4.30 - 5.70 10 6/uL 05/14/2020 11:03 AM [facility] Hemoglobin 10.7(L) 13.5 - 17.5 g/dL 05/14/2020 11:03 AM [facility] Hematocrit 31.1(L) 39.0 - 50.0 % 05/14/2020 11:03 AM [facility] MCV 90.1 81.0 - 97.0 fL 05/14/2020 11:03 AM [facility] MCH 31.0 28.0 - 34.0 pg 05/14/2020 11:03 AM [facility] MCHC 34.4 32.0 - 36.0 g/dL 05/14/2020 11:03 AM [facility] Platelet Count 232 150 - 400 10 3/uL 05/14/2020 11:03 AM [facility] RDW-SD 42.4 36.0 - 50.0 fL 05/14/2020 11:03 AM [facility] RDW-CV 12.9 11.2 - 14.8 % 05/14/2020 11:03 AM [facility] MPV 9.8 9.3 - 12.8 fL 05/14/2020 11:03 AM [facility] nRBC Absolute 0.00 0 10 3/uL 05/14/2020 11:03 AM [facility] nRBC Auto 0.0 0 /100 WBC 05/14/2020 11:03 AM [facility] Neutrophils % 54.8 35.0 - 70.0 % 05/14/2020 11:03 AM [facility] Lymphocytes % 31.2 19.7 - 55.1 % 05/14/2020 11:03 AM [facility] Monocytes % 9.4 3.0 - 15.0 % 05/14/2020 11:03 AM [facility] Eosinophils % 3.8 0.0 - 6.0 % 05/14/2020 11:03 AM [facility] Basophil % 0.6 0.0 - 1.5 % 05/14/2020 11:03 AM [facility] Neutrophils Absolute 2.7 1.6 - 7.0 10 3/uL 05/14/2020 11:03 AM [facility] Lymphocyte Absolute 1.6 0.8 - 2.9 10 3/uL 05/14/2020 11:03 AM [facility] Monocytes Absolute 0.47 0.14 - 0.66 10 3/uL 05/14/2020 11:03 AM [facility] Eosinophils Absolute 0.19 0.00 - 0.45 10 3/uL 05/14/2020 11:03 AM [facility] Basophils Absolute 0.03 0.00 - 0.06 10 3/uL 05/14/2020 11:03 AM [facility] Immature Granulocytes % 0.2 0.0 - 1.0 % 05/14/2020 11:03 AM [facility] Blood BLOOD SPECIMEN / Unknown Lab Venipuncture / Unknown 05/14/2020 10:18 AM CDT 05/14/2020 10:55 AM [facility] Glenny Martin MD LAB - HEMATOLOG Y ORDERABLES Performing Organization Address City/State/[facility] Co de Phone Number [facility] [address] [place] [phone], [facility] [phone] * (ABNORMAL) COMPREHENSIVE METABOLIC PANEL (05/14/2020 10:18 AM [facility]) Only the most recent of2 resultswithin the time period is included. BUN 65(H) 7 - 26 mg/dL 05/14/2020 11:41 AM [facility] Creatinine 5.6(H) 0.6 - 1.2 mg/dL 05/14/2020 11:41 AM [facility] Sodium 142 136 - 145 mmol/L 05/14/2020 11:41 AM [facility] Potassium 3.7 3.5 - 4.5 mmol/L 05/14/2020 11:41 AM [facility] Chloride 101 98 - 107 mmol/L 05/14/2020 11:41 AM [facility] CO2 28 22 - 29 mmol/L 05/14/2020 11:41 AM [facility] Glucose 162(H) 70 - 115 mg/dL 05/14/2020 11:41 AM [facility] Calcium 9.0 8.4 - 10.2 mg/dL 05/14/2020 11:41 AM [facility] Protein Total 6.9 6.0 - 8.3 g/dL 05/14/2020 11:41 AM [facility] Albumin 3.7 3.4 - 5.0 g/dL 05/14/2020 11:41 AM [facility] Bilirubin Total 0.7 0.2 - 1.2 mg/dL 05/14/2020 11:41 AM [facility] Alkaline Phosphatase 140 40 - 150 Units/L 05/14/2020 11:41 AM [facility] ALT 43 0 - 55 Units/L 05/14/2020 11:41 AM [facility] AST 29 5 - 34 Units/L 05/14/2020 11:41 AM [facility] Anion Gap 17 8 - 18 05/14/2020 11:41 AM [facility] BUN/Creatinine Ratio 12 7 - 23 05/14/2020 11:41 AM [facility] Osmolality Calculated 316(H) 270 - 300 mOsm/kg 05/14/2020 11:41 AM [facility] Albumin/Globulin Ratio 1.2 1.1 - 2.3 05/14/2020 11:41 AM [facility] eGFR 11(L) >60 mL/min/1.7 3 m2 05/14/2020 11:41 AM [facility] Blood BLOOD SPECIMEN / Unknown Lab Venipuncture / Unknown 05/14/2020 10:18 AM CDT 05/14/2020 10:55 AM [facility] Glenny Martin MD LAB - CHEMISTRY ORDERABLES [facility] [address] [place] [phone], [facility] [phone] * PROSTATE SPECIFIC ANTIGEN SCREEN (05/14/2020 10:18 AM CDT) PSA Total 0.4 0.0 - 4.0 ng/mL 05/14/2020 11:59 AM [facility] Blood BLOOD SPECIMEN / Unknown Lab Venipuncture / Unknown 05/14/2020 10:18 AM CDT 05/14/2020 10:55 AM CDT Glenny Martin MD LAB - CHEMISTRY ORDERABLES Performing Organization Address [facility] Co de Phone Number [address] [address], [facility] [phone] * (ABNORMAL) PHOSPHORUS BLOOD (05/14/2020 10:18 AM CDT) Phosphorus 5.1(H) 2.3 - 4.7 mg/dL 05/14/2020 11:41 AM CDT [facility] Blood BLOOD SPECIMEN / Unknown Lab Venipuncture / Unknown 05/14/2020 10:18 AM CDT 05/14/2020 10:55 AM CDT Glenny Martin MD LAB - CHEMISTRY ORDERABLES Performing Organization Address [facility] de Phone Number [address] [address], [facility] [phone] * IRON BLOOD (05/14/2020 10:18 AM CDT) Iron 84 50 - 175 mcg/dL 05/14/2020 11:41 AM CDT [facility] Blood BLOOD SPECIMEN / Unknown Lab Venipuncture / Unknown 05/14/2020 10:18 AM CDT 05/14/2020 10:57 AM CDT Glenny Martin MD LAB - CHEMISTRY ORDERABLES Performing Organization Address [facility] Co de Phone Number [address] [address], [facility] [phone] * (ABNORMAL) HEPATITIS B SURFACE ANTIBODY (05/14/2020 10:18 AM CDT) Hepatitis B Virus Surface Antibody Reactive( A) Non-react bianca 05/14/2020 11:47 AM CDT [facility] Comment: > 12 mIU/mL Hepatitis B surface Antibody (HBsAb). Reactive for HBsAb - individual is considered immune to Hepatitis B Virus infection. Hepatitis B Surface Antibody Quantitative 72.7(H) <8.0 mIU/mL 05/14/2020 11:47 AM CDT [facility] Comment: Hepatitis B Surface Antibody Numeric Result Interpretation: Nonreactive: <8.0 mIU/mL Indeterminate: 8.0 - 12.0 mIU/mL Reactive: >12.0 mIU/mL Blood BLOOD SPECIMEN / Unknown Lab Venipuncture / Unknown 05/14/2020 10:18 AM CDT 05/14/2020 10:55 AM CDT Glenny Martin MD LAB - CHEMISTRY ORDERABLES [address] [address], [facility] [phone] * HEPATITIS B CORE ANTIBODY (05/14/2020 10:18 AM CDT) HBc Antibody Total Non-reacti ve Non-reacti ve 05/14/2020 11:47 AM CDT [facility] Blood BLOOD SPECIMEN / Unknown Lab Venipuncture / Unknown 05/14/2020 10:18 AM CDT 05/14/2020 10:55 AM CDT Glenny Martin MD LAB - CHEMISTRY ORDERABLES Performing Organization Address City/[facility]/ZIP Co de Phone Number [address] [address], [place] [phone] * HEPATITIS B SURFACE ANTIGEN W RFLX CONFIRMATION (05/14/2020 10:18 AM CDT) Hepatitis B Virus Surface Antigen Non-reacti ve Non-reacti ve 05/14/2020 11:47 AM CDT [facility] Blood BLOOD SPECIMEN / Unknown Lab Venipuncture / Unknown 05/14/2020 10:18 AM CDT 05/14/2020 10:55 AM CDT Glenny Martin MD LAB - CHEMISTRY ORDERABLES Performing Organization Address City/[facility]/ZIP Co de Phone Number [address] [address], [place] [phone] * ALCOHOL ETHYL BLOOD (05/14/2020 10:18 AM CDT) [facility] Interpretation Ethanol None Detected None Detected mg/dL 05/14/2020 11:41 AM CDT [facility] Comment:Ethanol levels less than 10 mg/dL are resulted as None detected . Blood BLOOD SPECIMEN / Unknown Lab Venipuncture / Unknown 05/14/2020 10:18 AM CDT 05/14/2020 10:55 AM CDT Glenny Martin MD LAB - CHEMISTRY ORDERABLES [address] [address], [facility] [phone] * HEPATITIS C ANTIBODY (05/14/2020 10:18 AM CDT) [facility] Hepatitis C Antibody Non-react bianca Non-reac tive 05/14/2020 11:49 AM CDT [facility] Comment:Hepatitis C Antibody screen indicates no [...] Glenny Martin MD LAB - CHEMISTRY ORDERABLES [address] [address], [facility] [phone] * (ABNORMAL) HEPATITIS A ANTIBODY (05/14/2020 10:18 AM CDT) [facility] Hepatitis A Virus Antibody Total Positive( A) Negative 05/16/2020 11:02 AM CDT [facility] ([facility]) Comment: The positive anti-HAV is consistent with recent or remote Hepatitis A infection or antibody response to HAV vaccination. False positive anti-HAV can occur. Performed by [employer], [address] [place] [address] [email or web address], Valerie Mast MD, Lab. Director Blood BLOOD SPECIMEN / Unknown Lab Venipuncture / Unknown 05/14/2020 10:18 AM CDT 05/14/2020 10:57 AM CDT Glenny Martin MD LAB - CHEMISTRY ORDERABLES Performing Organization Address City/[facility]/ZIP Co de Phone Number [facility] [employer] ([facility]) [address] [place], [place] [address] * (ABNORMAL) FERRITIN (05/14/2020 10:18 AM CDT) Ferritin 502(H) 22 - 275 ng/mL 05/14/2020 11:47 AM CDT [facility] Blood BLOOD SPECIMEN / Unknown Lab Venipuncture / Unknown 05/14/2020 10:18 AM CDT 05/14/2020 10:55 AM CDT Glenny Martin MD LAB - CHEMISTRY ORDERABLES [place] [id number] [phone] * (ABNORMAL) LIPID PROFILE (05/14/2020 10:18 AM CDT) Cholesterol Total 137 <200 mg/dL 05/14/2020 11:41 AM CDT [facility] HDL 28(L) >40 mg/dL 05/14/2020 11:41 AM CDT [facility] Comment: ATP III Classification of HDL Cholesterol: <40 mg/dL: Considered a major risk factor. >60 mg/dL: Considered a negative risk factor. LDL Calculated 70 <100 mg/dL 05/14/2020 11:41 AM T [facility] Comment: ATP III Classification of LDL Cholesterol: <100 mg/dL: Optimal 100 - 129 mg/dL: Near Optimal/Above Optimal 130 - 159 mg/dL: Borderline High 160 - 189 mg/dL: High >190 mg/dL: Very High Triglycerides 196(H) <150 mg/dL 05/14/2020 11:41 AM CDT [facility] Comment: ATP III Classification of Triglycerides: <150 mg/dL: Normal 150 - 199 mg/dL: Borderline High 200 - 400 mg/dL: High >500 mg/dL: Very High Blood BLOOD SPECIMEN / Unknown Lab Venipuncture / Unknown 05/14/2020 10:18 AM CDT 05/14/2020 10:55 AM CDT Glenny Martin MD LAB - CHEMISTRY ORDERABLES Performing Organization Address City/[facility]/ZIP Co de Phone Number [facility] [address] [place] [address], [facility] [phone] * TYPE + SCREEN PANEL (05/14/2020 10:06 AM CDT) Antibody Screen NEG 0 12:17 PM CDT [facility] ABO Rh A POS 05/14/2020 12:17 PM CDT [facility] Blood Bank BLOOD SPECIMEN / Unknown Lab Venipuncture / Unknown 05/14/2020 10:06 AM CDT 05/14/2020 11:30 AM CDT Glenny Martin MD LAB - BLOOD BAN K ORDERABLES Performing Organization Address [facility] Co de Phone Number [facility] [address] [place] [address], [facility] [phone] * XR PANOREX (05/14/2020 7:35 AM CDT) Anatomical Region Laterality Modality Head Radiographic Toma ging 05/14/2020 7:56 AM CDT Impressions 05/15/2020 7:51 AM CDT IMPRESSION: No periapical abscess identified. Dictated by Kristie Bee MD (radiology ct technologist). I, Dr. CONRAD GONZALES MD have personally [...] identified. Dictated by Kristie Bee MD (radiology ct technologist). Dr. CONRAD Champion MD have personally reviewed [...] normal. Dictated by Kristie Bee MD (radiology ct technologist). Dr. CONRAD Champion MD have personally reviewed [...] heart size is normal. Dictated by Kristie eBe MD (radiology ct technologist). I, Dr. CORNAD GONZALES MD have personally reviewed and interpreted [...] approximately 13% higher for people identified as -Israeli. eGFR by MDRD 14(L) > OR = [...] Lbs [address] [facility] Comment: Test Performed at: [employer] [address] [place] [address] ANA REYES DO,MPH 04/27/2019 9:17 AM CDT 04/27/2019 9:19 AM CDT Judah Norton MD LAB - URINE CHEMISTR Y ORDERABLES [facility] [address] [place] [address] * XR FOOT RIGHT 3VW OR MORE [...] Ash Moreira MD (resident). I, Dr. CONRAD GONZAELS MD have personally reviewed and interpreted this [...] was electronically signed by CNORAD GONZALES MD on04/26/2019 2:11 PM . Judah [...] Region Laterality Modality Pelvis, Lower Extremity Radiogra [facility] Imaging 04/26/2019 1:20 PM CDT Impressions [...] Yellow Straw, Yellow, Colorless 04/26/2019 1:31 PM [facility] Clarity UA Slt Cloudy Clear, Slt Cloudy 04/26/2019 1:31 PM [facility] Specific [place] UA 1.013 1.005 - 1.030 04/26/2019 1:31 PM [facility] pH UA 5.0 5.0 - 8.0 pH 04/26/2019 1:31 PM [facility] Protein UA 2+(A) Negative mg/dL 04/26/2019 1:31 PM [facility] Glucose UA 1+(A) Negative mg/dL 04/26/2019 1:31 PM [facility] Ketone UA Negative Negative mg/dL 04/26/2019 1:31 PM [facility] Bilirubin UA Negative Negative mg/dL 04/26/2019 1:31 PM [facility] Blood UA Negative Negative 04/26/2019 1:31 PM CDT [facility] Nitrite UA Negative Negative 04/26/2019 1:31 PM CDT [facility] Leukocyte Esterase Negative Negative 04/26/2019 1:31 PM CDT [facility] Urobilinogen UA Negative Negative mg/dL 04/26/2019 1:31 PM CDT [facility] RBC UA 0-2 None Seen, 0-2, 3-5 /HPF 04/26/2019 1:31 PM CDT [facility] WBC UA 0-5 None Seen, 0-5 /HPF 04/26/2019 1:31 PM CDT [facility] Squamous Epithelial Cells UA 0-2 None Seen, 0-2 /HPF 04/26/2019 1:31 PM CDT [facility] Mucus UA 1+ None, 1+ /LPF 04/26/2019 1:31 PM CDT [facility] Hyaline Casts UA 11-20(A) None Seen, 0-2 /LPF 04/26/2019 1:31 PM CDT [facility] Urine URINE SPECIMEN OBTAINED BY CLEAN CATCH PROCEDURE / Unknown Collection / Unknown 04/26/2019 12:42 PM CDT 04/26/2019 1:18 PM CDT Narrative [facility] - 04/26/2019 1:31 PM CDT Judah Norton MD LAB - URINALYSIS ORD ERABLES [facility] [address] [place] [address] * CYCLIC CITRUL PEPTIDE ANTIBODY IGG/IGA (CCP) (04/26/2019 12:42 PM CDT) CCP Antibodies IgG/IgA 17 0 - 19 units 04/29/2019 9:06 PM CDT [facility] ([facility]) Comment: Negative <20 Weak positive 20 - 39 Moderate positive 40 - 59 Strong positive >59 Blood BLOOD SPECIMEN / Unknown Lab Venipuncture / Unknown 04/26/2019 12:42 PM CDT 04/26/2019 1:18 PM CDT Narrative [facility] ([facility]) - 04/29/2019 9:06 PM CDT Performed at: 01 - [facility] [id number] Vending Technician: Con Grimaldo MD, Phone: [phone] Judah Norton MD LAB - SEROLOGY ORDER ROVERTO [facility] ([facility]) [address] [id number] * RHEUMATOID FACTOR BLOOD QUANTITATIVE (04/26/2019 12:42 PM CDT) Rheumatoid Factor <15 <30 IU/mL 04/26/2019 2:34 PM CDT [facility] Blood BLOOD SPECIMEN / Unknown Lab Venipuncture / Unknown 04/26/2019 12:42 PM CDT 04/26/2019 1:18 PM CDT Judah Norton MD LAB - CHEMISTRY ORDE SULEMA [address] [phone] * C-REACTIVE PROTEIN (04/26/2019 12:42 PM CDT) Pathologist [facility] C-Reactive Protein <0.5 <=0.5 mg/dL 04/26/2019 2:21 PM CDT [facility] Blood BLOOD SPECIMEN / Unknown Lab Venipuncture / Unknown 04/26/2019 12:42 PM CDT 04/26/2019 1:19 PM CDT Judah Norton MD LAB - CHEMISTRY SUSANNAH LEONE [address] [phone] * SHAWN BLOOD SCREEN W/REFLEX TITER (04/26/2019 12:42 PM CDT) SHAWN Negative 04/27/2019 3:07 PM CDT [facility] ([facility]) Comment: Negative <1:80 Borderline 1:80 Positive >1:80 Blood BLOOD SPECIMEN / Unknown Lab Venipuncture / Unknown 04/26/2019 12:42 PM CDT 04/26/2019 1:18 PM CDT Narrative [facility] ([facility]) - 04/27/2019 3:07 PM CDT Performed at: [facility] [address] [place], [place] [id number] Vending Technician: Mehdi Del Angel PhD, Phone: [phone] Judah Norton MD LAB - CHEMISTRY SUSANNAH LEONE Performing Organization Address City/[facility]/ZIP Co de Phone Number [facility] ([facility]) [address] [place] [address] * SS-B (SJOGREN'S) ANTIBODY (04/26/2019 12:42 PM CDT) SS-B LA Antibody 2.8 0.0 - 19.9 Units 04/30/2019 9:45 AM CDT [facility] Comment: JOSE ENRIQUE Antibody Numeric Result Interpretation: <20.0 Units: Negative 20.0 - 39.0 Units: Weakly Positive >39.0 Units: Positive Blood BLOOD SPECIMEN / Unknown Lab Venipuncture / Unknown 04/26/2019 12:42 PM CDT 04/26/2019 1:19 PM CDT Judah Norton MD LAB - CHEMISTRY SUSANNAH LOENE Performing Organization Address City/[facility]/ZIP Co de Phone Number [address] [phone] * SS-A (SJOGREN'S) ANTIBODY (04/26/2019 12:42 PM [...] Norton MD LAB - CHEMISTRY SUSANNAH LEONE [address] [phone] * ALDOLASE (04/26/2019 12:42 PM CDT) [facility] Aldolase 6.9 3.3 - 10.3 U/L 04/29/2019 3:08 PM CDT [facility] ([facility]) Blood BLOOD SPECIMEN / Unknown Lab Venipuncture / Unknown 04/26/2019 12:42 PM CDT 04/26/2019 1:18 PM CDT Narrative [facility] ([facility]) - 04/29/2019 3:08 PM CDT Performed at: - [address] [id number] Vending Technician: Mehdi Del Angel PhD, Phone: [phone] Judah Norton MD LAB - CHEMISTRY SUSANNAH LEONE Performing Organization Address City/[facility]/ZIP Co de Phone Number [facility] ([facility]) [address] [place] [address] * (ABNORMAL) ERYTHROCYTE SEDIMENTATION RATE (04/26/2019 12:42 PM CDT) [facility] Erythrocyte Sedimentation Rate Westergren 34(H) 0 - 20 MM/HR 04/26/2019 1:31 PM CDT [facility] Blood BLOOD SPECIMEN / Unknown Lab Venipuncture / Unknown 04/26/2019 12:42 PM CDT 04/26/2019 1:19 PM CDT Judah Norton MD LAB - HEMATOLOGY HUAN WALTON [address] [phone] * (ABNORMAL) LDH BLOOD (04/26/2019 12:42 PM CDT) [facility] LDH Total 268(H) 125 - 243 Units/L 04/26/2019 1:43 PM CDT [facility] Blood BLOOD SPECIMEN / Unknown Lab Venipuncture / Unknown 04/26/2019 12:42 PM CDT 04/26/2019 1:19 PM CDT Judah Norton MD LAB - CHEMISTRY SUSANNAH LEONE Performing Organization Address [facility]/[facility]/ZIP Co de Phone Number [address] [phone] * (ABNORMAL) CK BLOOD (04/26/2019 12:42 PM CDT) Pathologist [facility] CK Total 280(H) 30 - 200 Units/L 04/26/2019 1:43 PM CDT [facility] Blood BLOOD SPECIMEN / Unknown Lab Venipuncture / Unknown 04/26/2019 12:42 PM CDT 04/26/2019 1:19 PM CDT Judah Norton MD LAB - CHEMISTRY SUSANNAH LEONE Performing Organization Address [facility]/ZIP Co de Phone Number [address] [phone] * CARDIAC PROCEDURE ORDER (11/27/2018 1:35 AM [...] UNKNOWN SAMPLE TYPE 11/26/2018 10:39 AM CDT [facility] Blood BLOOD SPECIMEN / Unknown 11/23/2018 2:11 PM CDT 11/26/2018 10:39 AM CDT Francisco Luque MD LAB - POINT OF CARE ORDERABLES [facility] [address] [place] [address] * (ABNORMAL) BASIC METABOLIC PANEL (CALCIUM TOTAL) (11/23/2018 3:25 AM CDT) Only the most recent of2 resultswithin the time period is included. [facility] Glucose 195(H) 74 - 106 mg/dL 11/23/2018 5:10 AM CDT [facility] Sodium 135(L) 136 - 145 mmol/L 11/23/2018 5:10 AM CDT [facility] Potassium 3.8 3.5 - 5.1 mmol/L 11/23/2018 5:10 AM CDT [facility] Chloride 104 98 - 107 mmol/L 11/23/2018 5:10 AM CDT [facility] CO2 23 23 - 31 mmol/L 11/23/2018 5:10 AM CDT [facility] Calcium 8.3(L) 8.4 - 10.2 mg/dL 11/23/2018 5:10 AM CDT [facility] Anion Gap 8 8 - 16 mmol/L 11/23/2018 5:10 AM CDT [facility] BUN 56(H) 8.4 - 25.7 mg/dL 11/23/2018 5:10 AM CDT [facility] Creatinine 2.74(H) 0.73 - 1.18 mg/dL 11/23/2018 5:10 AM CDT [facility] eGFR by MDRD 25(L) >60 mL/min/1.7 3m2 11/23/2018 5:10 AM CDT [facility] eGFR by MDRD 30(L) >60 mL/min/1.7 3m2 11/23/2018 5:10 AM CDT [facility] Blood BLOOD SPECIMEN / Unknown Venipuncture / Unknown 11/23/2018 3:25 AM CDT 11/23/2018 4:37 AM CDT Francisco Luque MD LAB - CHEMISTRY SUSANNAH LEONE [facility] Organization Address City/State/ZIP Co de Phone Number [facility] [address] [place] [address] * CARDIAC CATH PROCEDURE (11/22/2018 12:00 PM CDT) 11/22/2018 12:0 0 PM CDT Narrative Procedure Note Francisco Luque MD - 11/23/2018 3:23 AM CDT [facility] CARDIAC CATHETERIZATION PATIENT: JUVENAL GARVIN MR#: [id number] ADMIT DATE: 11/22/2018 CSN: [id number] PROCEDURE DATE: 11/22/2018 :1970 PHYSICIAN: Francisco Luque Jr., MD ROOM: [facility] REFERRING PHYSICIAN: Francisco Luque Jr., [...] sheath wasplaced in right femoral artery. A 5-Qatari #4 Kranthi left coronary catheterwas advanced in the left coronary ostium and left coronary arteriograms were performed in multiple projections. This catheter was removed and exchangedfor 5-Qatari #4 Kranthi right coronary catheter, was advanced in the right coronary ostium. Right coronary arteriography was performed in multiple projections. This catheter was removed. The decision was made to proceedwith intervention and therefore no left ventriculogram was performed to avoid excess dye in this patient with severe kidney disease. The arterial sheathwas exchanged for 6-Qatari sheath followed by advancement of a 6-Qatari #4Judkins right guide to the right coronary [...] descending artery. Injection of contrast reveals an [id number]% stenosis and mid 90% stenosis and a [...] gentleman. FRANCISCO LUQUE JR., MD RPR/MODL #: [id number] cc: Francisco Luque Jr., MD MEDICAL/SURGICAL CARDIAC [...] Lower Extremity [facility] 03/25/2015 8:09 PM CDT Impressions 03/25/2015 [...] [facility] NG ORDERABLES Care Teams Paste Mixer Relationship Specialty Start Date End Date Aditya Castro Update Information PCP - General 03/06/19
--- OUTSIDE RECORDS SUMMARY | 2024-10-24 17:53 | XMS_ITS | Clinical Summary ---
Author Organization [facility] [employer] Address [address] [place] [address] Care Team Providers Care Statement Clerks Manager Name Role Phone Aditya Castro Primary Care Provider Unavailab le Source Comments [facility] [employer],non-owned Affiliates and Associated Physician Practices is amultiple site organization consisting of ambulatory clinics and hospital sitesin [place], [place], [place] and [place]. This disclosure is being madepursuant to the Care Everywhere program and may not contain all information available regarding this patient. Last updated 18.[facility] [employer] Allergies Active Allergy Reactions Criticality Noted Date [...] needed 01/25/2019 Active vitamin D, ergocalciferol, (DRISDOL) 23599 units capsule Take 50,000 Units by mouth [...] fluticasone propionate (FLONASE) 50 MCG/ACT nasal spray [place] 1 spray into each nostril once daily 04/24/2019 Active epoetin (PROCRIT) 19845 UNIT/ML injection Inject subcutaneously every 14 days [...] were not included. Juvenal Garvin 1970 Referring Aspnet Developer: Leandro Reyes Dialysis Info: Type: PD Time: 160 days (11/05/2019) Blood Type: A Body mass index is 37.8 kg/m . ALERTS Senior Housekeeper: Vashti Lizama NP Past Medical History: Diagnosis Date Anemia Arthritis Arthropathy osteo. back and knees see Dr. Cierra ELIAS (coronary artery disease) Community acquired pneumonia 2017 [facility] hospitalized with double pneumonia Congestive heart failure Coronary artery disease Diabetes mellitus type 1 teens dx when he was 13. Insulin since he was dx. Insulin pump currently with dexacom. Vashti Lizama TOY PAINTER is hand outside cutter. DM (diabetes mellitus) TYPE 1 DVT (deep venous thrombosis) 2017 [facility]. ESRD on peritoneal dialysis Gout History of blood transfusion 2017 during admission for [place] HLD (hyperlipidemia) HTN (hypertension) Hypercholesteremia 5 years on med Hypertension 30's on medications. Kidney disease Myocardial infarction 2017 [facility]. Stent x1 placed. Neuropathy feet Obstructive [...] 07/02/2020: Committee Discussion Details: Pt brought to [facility] to discuss his cardiac workup. [...] stress. Stress ejection fraction estimated at 83%. [facility]: 08/26/2019 NM exercise Stress: 04/16/2019 04/17/2017 CXR: [...] is the impression of this social science professor that Juvenal Garvin has several positive factors [...] advised of safety concerns regarding immunosuppressants. Plan: older worker specialist to provide supportive services as needed. Patient appears to be a reasonable candidate for transplant from a psychosocial perspective. -Post transplant arrangement forms are needed prior to being listed. Psychiatric Consult Recommended: No Transplant Small Brake Form Operator: Radha Roper LCSW RD:05/14/2020 BMI= 40.0, Class [...] Comments Blood Pressure 140/60 07/13/2020 1:30 PM [employer]OUNT [employer] Pulse 65 07/13/2020 1:30 PM [employer] Temperature 36.1 C (97 F) 07/13/2020 1:30 PM [employer] Respiratory Rate 20 07/13/2020 1:30 PM [employer] Oxygen Saturation 95% 07/13/2020 1:30 PM [employer]OUNT [employer] Inhaled Oxygen Concentration - - Weight 134.3 kg (296 lb) 07/13/2020 1:30 PM [employer]OUNT [employer] Height 176.5 cm (5' 9.5 ) 07/13/2020 1:30 PM ACCOUNT MANA[employer] Body Mass Index 43.08 07/13/2020 1:30 PM [employer]OUNT [employer]NA[employer] Plan of Treatment Health Maintenance Due Date [...] ve Non-react bianca 05/14/2020 11:49 AM CDT [facility] Comment:Neither HIV-1 p24 An tigen nor HIV-1/HIV-2 Antibodies are detected. Blood BLOOD SPECIMEN / Unknown Lab Venipuncture / Unknown 05/14/2020 10:18 AM CDT 05/14/2020 10:57 AM CDT Glenny Martin MD LAB - HEMATOLOG Y ORDERABLES [facility] [address] [place] [address] [phone] * (ABNORMAL) COMPREHENSIVE METABOLIC PANEL (05/14/2020 10:18 AM [facility]) BUN 65(H) 7 - 26 mg/dL 05/14/2020 [...] 1.1 - 2.3 05/14/2020 11:41 AM CDT [facility] eGFR 11(L) >60 mL/min/1.7 3 m2 05/14/2020 11:41 AM CDT [facility] Blood BLOOD SPECIMEN / Unknown Lab Venipuncture / Unknown 05/14/2020 10:18 AM CDT 05/14/2020 10:55 AM CDT Glenny Martin MD LAB - CHEMISTRY ORDERABLES [facility] [address] [place] [address], [place] [phone] * HEPATITIS C ANTIBODY (05/14/2020 10:18 AM CDT) [facility] Hepatitis C Antibody Non-react bianca Non-reac [...] Glenny Martin MD LAB - CHEMISTRY ORDERABLES [address] [address], [place] [phone] from Last 3 Months or Most Recently Relevant to Health Maintenance Insurance Payer Benefit Plan / Group Subscriber ID Effective Dates Phone Address Type AETNA MEDICARE ADV AETNA MEDICARE ADV HMO/PPO/PFFS [id number] Effective for all dates [address] [place] [address] Medicare-[facility] MEDICAID SPENDDOWN [facility] MEDICAID SP[employer]DOWN [facility] Effective for all dates [address] [facility] [address] [place] [address] Medicaid AETNA MEDICARE ADV AETNA MEDICARE ADV HMO/PPO/PFFS [id number] Effective for all dates [address] [place] [address] Medicare-Or naged Care MEDICAID [facility]DOWN [facility] MEDICAID [employer]DOWN [facility] Effective for all dates [address] [place] [address] Medicaid AETNA MEDICARE ADV AETNA MEDICARE ADV HMO/PPO/PFFS [id number] Effective for all dates [address] [place] [address] Medicare-Ma naged Care MEDICAID [employer] [facility] MEDICAID [employer]DOWN [facility] Effective for all dates [address] [place] [address] Medicaid MEDICARE [place] MEDICARE PART B [id number] 08/21/2019-Pres ent [address] [address] [place] [address] Medicare MEDICAID - OUT OF [facility] MEDICAID - [place] PUBLIC AID [id number] 08/21/2019-Pres ent [address] [address] [place] [address] Medicaid MEDICARE MEDICARE PART A AND B [id number] 08/21/2019-Pres ent [address] [place] [address] Medicare MEDICAID - [place] [id number] Effective for all dates [address] [address] [place] [address] Medicaid [place] Advance Directives * Full Code (Latest Code Status on File) Date Activated Date Inactivated Comments 11/22/2018 9:24 AM 11/23/2018 7:55 PM Care Teams Statement Clerks Manager Relationship Specialty Start Date End Date Aditya Castro Update Information PCP - General 03/06/19
--- OUTSIDE RECORDS SUMMARY | 2024-10-24 17:53 | XMS_ITS | Referral Summary ---
Author Organization [facility] Address [address] [place] [address] Care Team Providers Care Script Writer Name Role Phone Aditya Castro Primary Care Provider Unavailab le Source Comments [facility],non-owned Affiliates and Associated Physician Practices is amultiple site organization consisting of ambulatory clinics and hospital sitesin [place], [place], [place] and [place]. This disclosure is being madepursuant to the Care Everywhere program and may not contain all information available regarding this patient. Last updated 18.[facility] Allergies Active Allergy Reactions Criticality Noted Date [...] needed 01/25/2019 Active vitamin D, ergocalciferol, (DRISDOL) 55897 units capsule Take 50,000 Units by mouth [...] fluticasone propionate (FLONASE) 50 MCG/ACT nasal spray [place] 1 spray into each nostril once daily 04/24/2019 Active epoetin (PROCRIT) 27430 UNIT/ML injection Inject subcutaneously every 14 days [...] were not included. Juvenal Garvin 1970 Referring Display Coordinator: Leandro Reyes Dialysis Info: Type: PD Time: 160 days (11/05/2019) Blood Type: A Body mass index is 37.8 kg/m . ALERTS Studio Technician: Vashti Lizama NP Past Medical History: Diagnosis Date Anemia Arthritis Arthropathy osteo. back and knees see Dr. Cierra ELIAS (coronary artery disease) Community acquired pneumonia 2017 [facility] hospitalized with double pneumonia Congestive heart failure Coronary artery disease Diabetes mellitus type 1 teens dx when he was 13. Insulin since he was dx. Insulin pump currently with dexacom. Vashti Lizama CARD ROOM MANAGER is press set up person. DM (diabetes mellitus) TYPE 1 DVT (deep venous thrombosis) 2017 [facility]. ESRD on peritoneal dialysis Gout History of blood transfusion 2017 during admission for [place] HLD (hyperlipidemia) HTN (hypertension) Hypercholesteremia 5 years on med Hypertension 30's on medications. Kidney disease Myocardial infarction 2017 [facility]. Stent x1 placed. Neuropathy feet Obstructive [...] file Gets together: Not on file Attends alevism service: Not on file Active member of [...] Committee Discussion Details: Pt brought to [facility] to discuss his cardiac workup. Team reviewed [...] stress. Stress ejection fraction estimated at 83%. [facility]: 08/26/2019 NM exercise Stress: 04/16/2019 04/17/2017 CXR: [...] Impression: It is the impression of this executive secretary social welfare that Juvenal Garvin has several positive factors [...] being listed. Psychiatric Consult Recommended: No Transplant Time Clock Repairer: Radha Roper LCSW RD:05/14/2020 BMI= 40.0, Class [...] Comments Blood Pressure 140/60 07/13/2020 1:30 PM MANAGER MARITIME Pulse 65 07/13/2020 1:30 PM MANAGER MARITIME Temperature 36.1 C (97 F) 07/13/2020 1:30 PM MANAGER MARITIME Respiratory Rate 20 07/13/2020 1:30 PM MANAGER MARITIME Oxygen Saturation 95% 07/13/2020 1:30 PM MANAGER MARITIME Inhaled Oxygen Concentration - - Weight 134.3 kg (296 lb) 07/13/2020 1:30 PM MANAGER MARITIME Height 176.5 cm (5' 9.5 ) 07/13/2020 1:30 PM MANAGER MARITIME Body Mass Index 43.08 07/13/2020 1:30 PM MANAGER MARITIME Plan of Treatment Not on file Procedures [...] ve Non-react bianca 05/14/2020 11:49 AM CDT [facility] Comment:Neither HIV-1 p24 An tigen nor HIV-1/HIV-2 Antibodies are detected. Blood BLOOD SPECIMEN / Unknown Lab Venipuncture / Unknown 05/14/2020 10:18 AM CDT 05/14/2020 10:57 AM CDT Glenny Martin MD LAB - HEMATOLOG Y ORDERABLES [facility] [address] [place] [address], [facility] [phone] * (ABNORMAL) COMPREHENSIVE METABOLIC PANEL (05/14/2020 10:18 AM [facility]) BUN 65(H) 7 - 26 mg/dL 05/14/2020 11:41 AM [facility] Creatinine 5.6(H) 0.6 - 1.2 mg/dL 05/14/2020 11:41 AM [facility] Sodium 142 136 - 145 mmol/L 05/14/2020 11:41 AM [facility] Potassium 3.7 3.5 - 4.5 mmol/L 05/14/2020 11:41 AM [facility] Chloride 101 98 - 107 mmol/L 05/14/2020 11:41 AM [facility] CO2 28 22 - 29 mmol/L 05/14/2020 11:41 AM [facility] Glucose 162(H) 70 - 115 mg/dL 05/14/2020 11:41 AM [facility] Calcium 9.0 8.4 - 10.2 mg/dL 05/14/2020 11:41 AM [facility] Protein Total 6.9 6.0 - 8.3 g/dL 05/14/2020 11:41 AM [facility] Albumin 3.7 3.4 - 5.0 g/dL [...] - 300 mOsm/kg 05/14/2020 11:41 AM CDT [facility] Albumin/Globulin Ratio 1.2 1.1 - 2.3 05/14/2020 11:41 AM CDT [facility] eGFR 11(L) >60 mL/min/1.7 3 m2 05/14/2020 11:41 AM CDT [facility] Blood BLOOD SPECIMEN / Unknown Lab Venipuncture / Unknown 05/14/2020 10:18 AM CDT 05/14/2020 10:55 AM CDT Glenny Martin MD LAB - CHEMISTRY ORDERABLES [facility] [address] [place] [address], [place] [phone] * HEPATITIS C ANTIBODY (05/14/2020 10:18 AM CDT) Hepatitis C Antibody Non-react bianca Non-reac tive 05/14/2020 11:49 AM CDT [facility] Comment:Hepatitis C Antibody screen indicates no serologic [...] CHEMISTRY ORDERABLES [facility] [address] [place] [address], [place] [phone] from Last 3 Months or Most Recently Relevant to Health Maintenance Insurance Payer Benefit Plan / Group Subscriber ID Effective Dates Phone Address Type AETNA MEDICARE ADV AETNA MEDICARE ADV HMO/PPO/PFFS [id number] Effective for all dates [address] [place] [address] Medicare-[facility] MEDICAID [facility] MEDICAID SP[employer]DOWN [facility] Effective for all dates [address] [place] [address] Medicaid AETNA MEDICARE ADV AETNA MEDICARE ADV HMO/PPO/PFFS [id number] Effective for all dates [address] [place] [address] Medicare-Tn naged Care [facility] [employer] Effective for all dates [address] [place] [address] Medicaid AETNA MEDICARE ADV AETNA MEDICARE ADV HMO/PPO/PFFS [id number] Effective for all dates [address] [place] [address] Medicare-Tn naged Care MEDICAID [employer] [facility] MEDICAID SP[employer] [facility] Effective for all dates [address] [place] [address] Medicaid MEDICARE S MEDICARE PART B [id number] 08/21/2019-Pres ent [address] [address] [place] [address] Medicare MEDICAID - OUT OF STATE MEDICAID [facility] PUBLIC AID [id number] 08/21/2019-Pres ent [address] [address] [place] [address] Medicaid MEDICARE MEDICARE PART A AND B [id number] 08/21/2019-Pres ent [address] [place] [address] Medicare [place] [id number] Effective for all dates [address] [address] [place] [address] Medicaid [place] Advance Directives * Full Code (Latest Code Status on File) Date Activated Date Inactivated Comments 11/22/2018 9:24 AM 11/23/2018 7:55 PM Care Teams Script Writer Relationship Specialty Start Date End Date Aditya Castro Update Information PCP - General 03/06/19
--- OUTSIDE RECORDS SUMMARY | 2024-10-24 17:53 | XMS_ITS | Encounter Summary ---
Author Organization [facility] Address [address] [address] Phone Care Team Providers Care Fruit Express Agent Name Role Phone Unavailable Primary Care Provider Unavailabl e Reason for Visit * Reason Comments Med Refill Encounter Details Date Type Department Care Team (Late st Contact Info) Description 07/04/2019 Refill [facility] [address] [address] Leandro Reyes MD [address] [address] Social History Tobacco Use Types [...]
--- OUTSIDE RECORDS SUMMARY | 2024-10-24 17:53 | XMS_ITS | Clinical Summary ---
Author Organization [facility] Address [address] [place] [address] Care Team Providers Care Equipment Planner Name Role Phone Aditya Castro MD Primary Care Provider [phone] Allergies Active Allergy Reactions Criticality Noted Date [...] Take 30 mg by mouth daily early head start director. Active clopidogrel (PLAVIX) 75 mg Tablet Take [...] Take 50,000 Units by mouth. Active Insulin [place], Disposable, (TRUEPLUS PEN NEEDLE) 31 gauge x [...] (06/29/2022): Added automatically from request for surgery [id number] Right upper quadrant pain 09/24/2020 Pre-transplant evaluation for kidney transplant 03/24/2020 Overview (06/29/2022): Images from the original note were not included. Juvenal Daigle 1970 Referring Principal Military Analyst: Leandro Reyes Dialysis Info: Type: PD Time: 160 days (11/05/2019) Blood Type: A Body mass index is 37.8 kg/m . ALERTS Children'S Service Worker: Vashti Lizama NP Past Medical History: Diagnosis Date Anemia Arthritis Arthropathy osteo. back and knees see Dr. Norton CAD (coronary artery disease) Community acquired pneumonia 2017 [facility] hospitalized with double pneumonia Congestive heart failure Coronary artery disease Diabetes mellitus type 1 teens dx when he was 13. Insulin since he was dx. Insulin pump currently with dexacom. Vashti Lizama NP is director medical. DM (diabetes mellitus) TYPE 1 DVT (deep venous thrombosis) 2017 [facility]. ESRD on peritoneal dialysis Gout History of blood transfusion 2017 during admission for [place] HLD (hyperlipidemia) HTN (hypertension) Hypercholesteremia 5 years on med Hypertension 30's on medications. Kidney disease Myocardial infarction 2017 [facility]. Stent x1 placed. Neuropathy feet Obstructive [...] file Gets together: Not on file Attends congregational service: Not on file Active member of [...] 07/02/2020: Committee Discussion Details: Pt brought to [facility] to discuss his cardiac workup. [...] Impression: It is the impression of this high school social studies tutor that Juvenal Daigle has several positive factors [...] advised of safety concerns regarding immunosuppressants. Plan: transplant worker to provide supportive services as needed. Patient appears to be a reasonable candidate for transplant from a psychosocial perspective. -Post transplant arrangement forms are needed prior to being listed. Psychiatric Consult Recommended: No Transplant Clinical Coordinator: Radha Roper LCSW RD:05/14/2020 BMI= 40.0, Class [...] cm (5' 10 ) 06/29/2022 6:00 PM NON MORSE INTERCEPT TECHNICIAN Body Mass Index 37.74 06/29/2022 6:00 PM NON MORSE INTERCEPT TECHNICIAN Plan of Treatment Health Maintenance Due Date [...] or Tdap) 10/21/2029 10/22/2019 Insurance [facility] [id number] [facility] MCR Advance Directives For more information, please contact: [phone] * Full Code (Latest Code Status on File) Date Activated Date Inactivated Comments 06/29/2022 2:49 PM 07/08/2022 4:30 PM Care Teams Equipment Planner Relationship Specialty Start Date End Date Aditya Castro MD PCP - General Student in an Organized Health Care Education/Training Program 09/11/18
--- OUTSIDE RECORDS SUMMARY | 2024-10-24 17:53 | XMS_ITS ---
Author Organization [facility] Address [address] [place] [address] Care Team Providers Care Global Recruiter Name Role Phone Aditya Castro MD Primary Care Provider [phone] Alondra Lambert RN Unavailable [phone] Shannon Brock MD, [place] P. Unavailable [phone] Leandro Reyes MD Unavailable [phone] Dialysis Access Sites Type Status Location Placement Date Removal Da te Peritoneal Dialysis Catheter Continuous cycling Active Hemodialysis Cath Double Inactive Right N emiliano (side) - Anterior 06/18/2022 06/25/2022 Hemodialysis Cath Triple Inactive Neck - Anterior 202106/16/2022 Procedures Procedure Name Priority Date/Time Associated Diagnosis Comments CARDIOLOGY DOCUMENT SCAN Routine 09/08/2024 11:26 AM CAT SCANNER OPERATOR CARDIOLOGY DOCUMENT SCAN Routine 09/07/2024 11:24 AM CAT SCANNER OPERATOR CARDIOLOGY DOCUMENT SCAN Routine 09/05/2024 11:06 AM CAT SCANNER OPERATOR HLA SOLID ORGAN TYPING REPORT 08/02/2024 9:04 AM CAT SCANNER OPERATOR SIX MINUTE WALK Routine 07/29/2024 2:46 PM CAT SCANNER OPERATOR End stage renal disease (HCC) CT ABDOMEN PELVIS WO CONTRAST Schedule Routine, Read Routine (OP Routine) 07/29/2024 12:43 PM CAT SCANNER OPERATOR End stage renal disease (HCC) XR ORTHOPANTOGRAM/PANOR EX Schedule Routine, Read Routine (OP Routine) 07/29/2024 11:44 AM CAT SCANNER OPERATOR End stage renal disease (HCC) TYPE AND SCREEN Routine 07/29/2024 11:23 AM CAT SCANNER OPERATOR End stage renal disease (HCC) ECG 12-LEAD Routine 07/29/2024 11:14 AM CAT SCANNER OPERATOR End stage renal disease (HCC) ABO/RH Routine 07/29/2024 11:13 AM CAT SCANNER OPERATOR EGFR Routine 07/29/2024 11:01 AM CAT SCANNER OPERATOR End stage renal disease (HCC) DIFFERENTIAL AUTO Routine 07/29/2024 11: 01 AM CAT SCANNER OPERATOR End stage renal disease (HCC) CBC WITH AUTO DIFFERENTIAL Routine 07/29/2024 11:01 AM CAT SCANNER OPERATOR End stage renal disease (HCC) COMPREHENSIVE METABOLIC PANEL Routine 07/29/2024 11:01 AM CAT SCANNER OPERATOR End stage renal disease (HCC) CREATININE, URINE, RANDOM Routine 07/29/2024 11:01 AM CAT SCANNER OPERATOR End stage renal disease (HCC) FERRITIN Routine 07/29/2024 11:01 AM CAT SCANNER OPERATOR End stage renal disease (HCC) GAMMA GT Routine 07/29/2024 11:01 AM CAT SCANNER OPERATOR End stage renal disease (HCC) HEMOGLOBIN A1C Routine 07/29/2024 11:01 AM CAT SCANNER OPERATOR End stage renal disease (HCC) IRON PROFILE W/ IBC Routine 07/29/2024 1 1:01 AM CAT SCANNER OPERATOR End stage renal disease (HCC) LIPID PANEL Routine 07/29/2024 11:01 AM CAT SCANNER OPERATOR End stage renal disease (HCC) PTH Routine 07/29/2024 11:01 AM CAT SCANNER OPERATOR End stage renal disease (HCC) APTT Routine 07/29/2024 11:01 AM CAT SCANNER OPERATOR End stage renal disease (HCC) PHOSPHORUS Routine 07/29/2024 11:01 AM CAT SCANNER OPERATOR End stage renal disease (HCC) PROTEIN, URINE, RANDOM Routine 07/29/2024 11:01 AM CAT SCANNER OPERATOR End stage renal disease (HCC) PROTIME-INR Routine 07/29/2024 11:01 AM CAT SCANNER OPERATOR End stage renal disease (HCC) URIC ACID Routine 07/29/2024 11:01 AM CAT SCANNER OPERATOR End stage renal disease (HCC) PSA SCREEN Routine 07/29/2024 11:01 AM CAT SCANNER OPERATOR End stage renal disease (HCC) LR HLA TYPING (CLASS I AND CLASS II) Routine 07/29/2024 11:01 AM CAT SCANNER OPERATOR End stage renal disease (HCC) HLA CLASS I DNA (ABC) RECIPIENT Routine 07/29/2024 11:01 AM CAT SCANNER OPERATOR End stage renal disease (HCC) HLA CLASS II DNA (DR, DQ, DP) RECIPIENT Routine 07/29/2024 11:01 AM CAT SCANNER OPERATOR End stage renal disease (HCC) HLA ANTIBODY SCREEN - SAB (CLASS I AND CLASS II) Routine 07/29/2024 11:01 AM CAT SCANNER OPERATOR End stage renal disease (HCC) HLA ANTIBODY SCREEN BY SINGLE ANTIGEN Routine 07/29/2024 11:01 AM CAT SCANNER OPERATOR End stage renal disease (HCC) CMV, IGG Routine 07/29/2024 11:01 AM CAT SCANNER OPERATOR End stage renal disease (HCC) MADIHA-MORRIS VIRUS VCA ANTIBODY PANEL Routine 07/29/2024 11:01 AM CAT SCANNER OPERATOR End stage renal disease (HCC) HIV 1/2 ANTIBODY PLUS P24 ANTIGEN Routine 07/29/2024 11:01 AM CAT SCANNER OPERATOR End stage renal disease (HCC) HSV 1 ANTIBODY, IGG Routine 07/29/2024 1 1:01 AM CAT SCANNER OPERATOR End stage renal disease (HCC) HSV 2 ANTIBODY, IGG Routine 07/29/2024 1 1:01 AM CAT SCANNER OPERATOR End stage renal disease (HCC) HEPATITIS B CORE ANTIBODY, TOTAL Routine 07/29/2024 11:01 AM CAT SCANNER OPERATOR End stage renal disease (HCC) HEPATITIS B SURFACE ANTIBODY (IMMUNE STATUS) Routine 07/29/2024 11:01 AM CAT SCANNER OPERATOR End stage renal disease (HCC) HEPATITIS B SURFACE ANTIGEN Routine 07/29/2024 11:01 AM CAT SCANNER OPERATOR End stage renal disease (HCC) HEPATITIS C ANTIBODY Routine 07/29/2024 11:01 AM CAT SCANNER OPERATOR End stage renal disease (HCC) RPR Routine 07/29/2024 11:01 AM CAT SCANNER OPERATOR End stage renal disease (HCC) VARICELLA ZOSTER ANTIBODY, IGG Routine 07/29/2024 11:01 AM CAT SCANNER OPERATOR End stage renal disease (HCC) URINALYSIS, MICROSCOPIC ONLY Routine 07/29/2024 10:53 AM CAT SCANNER OPERATOR End stage renal disease (HCC) OXALATE Routine 07/29/2024 10:53 AM CAT SCANNER OPERATOR ESRD (end stage renal disease) (HCC) URINALYSIS AND REFLEX TO MICROSCOPIC Routine 07/29/2024 10:53 AM CAT SCANNER OPERATOR End stage renal disease (HCC) TSH Routine 10/27/2023 2:30 AM CAT SCANNER OPERATOR from Last 3 Months or Most [...] 1 tablet (25 mcg total) by mouth programmer analyst before breakfast 30 tablet 1 11/04/19 24 [...] mg SL tablet 12/28/19 18 Active peg [id number] ycerin (ARTIFICAL TEARS) 1-0.2-0.2 % ophthalmic solution [...] 06/22/2022 Assessment & Plan (06/29/2022 10:12 AM CAT SCANNER OPERATOR): Stable, likely 2/2 anemia from ESRD, [...] 06/22/2022 Assessment & Plan (06/29/2022 10:12 AM CAT SCANNER OPERATOR): - Renal consulted, s/p CRRT in the ICU now back on PD. Tolerated well and nephrology following - Trialysis catheter removed - Continue vitamins for renal bone mineral disease. Assessment & Plan (06/28/2022 3:29 PM CAT SCANNER OPERATOR): - Renal consulted, s/p CRRT in [...] 06/22/2022 Assessment & Plan (06/29/2022 10:12 AM CAT SCANNER OPERATOR): C/b cardiogenic shock requiring impella in the setting of cath and AHRF 2/2 pulmonary edema, now resolved. TTE demonstrating recovered EF 65% with grade I diastolic dysfunction. - metop as above - continue low dose losartan 12.5mg daily, ok per nephro. Tolerating well - volume management per PD Assessment & Plan (06/28/2022 3:29 PM CAT SCANNER OPERATOR): C/b cardiogenic shock requiring impella in [...] 06/22/2022 Assessment & Plan (06/29/2022 10:12 AM CAT SCANNER OPERATOR): Converted to NSR overnight on 06/24. CHADsVASc of 4 not on anticoagulation prior to admission. - cardiology consulted - recommended ongoing rate control - holding off on a/c with high risk for bleeding while on DAPT - reduced metop to 25mg BID in the setting of hypotension, HR 70s NSR Assessment & Plan (06/28/2022 3:30 PM CAT SCANNER OPERATOR): Converted to NSR overnight on 06/24. [...] 08/22/2021 Assessment & Plan (06/29/2022 10:11 AM CAT SCANNER OPERATOR): With recurrent chest pain post-cath. He [...] today Assessment & Plan (06/28/2022 3:30 PM CAT SCANNER OPERATOR): With recurrent chest pain post-cath. He [...] 06/22/2022 Assessment & Plan (06/29/2022 10:11 AM CAT SCANNER OPERATOR): Secondary to NSTEMI, s/p Impella since removed on 06/10. Resolved. Assessment & Plan (06/23/2022 4:55 PM CDT): Secondary to NSTEMI, s/p Impella since removed on 06/10. Resolved. Assessment & Plan (06/22/2022 8:22 PM CDT): -Secondary to NSTEMI, s/p Impella since removed on 06/10. Acute hypoxemic respiratory failure 06/09/2022 Assessment & Plan (06/29/2022 10:12 AM CAT SCANNER OPERATOR): Secondary to ACS and flash pulmonary [...] (06/10/2022): Added automatically from request for surgery [id number] Abnormal cardiovascular stress test 12/29/2020 Overview (12/29/2020): Added automatically from request for surgery [id number] 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n ative artery of [place] heart with stable angina pectoris ([facility]) 05/23/2017 History of coronary artery stent [...] 01/18/2013 Assessment & Plan (06/29/2022 10:12 AM CAT SCANNER OPERATOR): A1c well controlled on admission. He [...] session Assessment & Plan (06/28/2022 3:28 PM CAT SCANNER OPERATOR): A1c well controlled on admission. He [...] from doctor or pharmacy Never 12/01/2023 [facility] Utilities Answer Date [...] week 08/01/2024 How often do you attend anabaptist or faith serv ices? Never 08/01/2024 Do [...] any time in the past 12 m [facility], were you homeless or living [...] on file Legal Sex Male 3:42 AM CAT SCANNER OPERATOR Gender Identity Not on file Sexual Orientation Not on file Last Filed Vital Signs Vital Sign Reading Time Taken Comments Blood Pressure 122/75 07/29/2024 1:00 PM CAT SCANNER OPERATOR Pulse 116 07/29/2024 1:00 PM CAT SCANNER OPERATOR Temperature 36.8 C (98.2 F) 07/29/2024 1:00 PM CAT SCANNER OPERATOR Respiratory Rate 16 12/01/2023 11:1 3 AM CDT Oxygen Saturation 96% 12/01/2023 11: 13 AM CDT Inhaled Oxygen Concentration - - Weight 121.2 kg (267 lb 1.6 oz) 07/29/2024 1:00 PM CAT SCANNER OPERATOR Height 177.8 cm (5' 10 ) 07/29/2024 1:00 PM CAT SCANNER OPERATOR Body Mass Index 38.32 07/29/2024 1:00 PM CAT SCANNER OPERATOR Results * Cardiology Document Scan (09/08/2024 11:26 AM CAT SCANNER OPERATOR) Anatomical Region Laterality Modality Other us Juan Abo[place] MD [facility] PROCEDU RES Final Result * Cardiology Document Scan (09/07/2024 11:24 AM CAT SCANNER OPERATOR) Anatomical Region Laterality Modality Other Juan Christianson MD CV CARDIAC SERVICES PROCEDU RES Final Result * Cardiology Document Scan (09/05/2024 11:06 AM CAT SCANNER OPERATOR) Anatomical Region Laterality Modality Other Lalit Machuca MD CV CARDIAC SERVICES PROCEDURES F inal Result * HLA Solid Organ Typing Report (08/02/2024 9:04 AM CAT SCANNER OPERATOR) Jossie King MD LAB GENETIC TESTIN G Final Result * Six Minute Walk - (07/29/2024 2:46 PM CAT SCANNER OPERATOR) Anatomical Region Laterality Modality PFT Narrative 07/29/2024 3:52 PM CAT SCANNER OPERATOR Table formatting from the original result was not included. Davey Pickard V., SHOE PATTERNMAKER on 07/29/2024 2:45 PM Table formatting from the original note was not included. 6 MINUTE WALK RESULTS Name: Pilo Juvenalfabi Rodriguez Jr : 1970 DOS: 07/29/2024 Diagnosis: ESRD/KTE SHOE PATTERNMAKER performed walk: Carmenza Pickard Rest: 1 min [...] Abdomen Pelvis WO Contrast (07/29/2024 12:43 PM CAT SCANNER OPERATOR) Anatomical Region Laterality Modality Body N/A Computed Tomogra phy 07/29/2024 1:04 PM CAT SCANNER OPERATOR Impressions 07/29/2024 1:04 PM CAT SCANNER OPERATOR 1. Moderate discontinuous atherosclerotic calcifications involve the [...] Teresa Rivera M.D. Narrative 07/29/2024 1:04 PM CAT SCANNER OPERATOR EXAMINATION: Computed tomography of the abdomen and [...] Maria Teresa Rivera M.D. 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 Electronically signed by: Julio Pinedo M.D. Narrative 07/29/2024 12:59 PM CAT SCANNER OPERATOR EXAMINATION: XR ORTHOPANTOGRAM/PANOREX HISTORY: Kidney Transplant [...] by: Julio Pinedo M.D. Jossie King MD [facility] XR PROCEDURES Final Result * Type and screen (07/29/2024 11:23 AM CAT SCANNER OPERATOR) Maribel, indirect Negative ABO Rh A Positive ALESSANDRA CARRION Blood 07/29/2024 11:2 3 AM CAT SCANNER OPERATOR 07/29/2024 11:43 AM CAT SCANNER OPERATOR Narrative ALESSANDRA CARRION - 07/29/2024 12:45 PM CAT SCANNER OPERATOR Please draw the ABO and the [...] T ORDERABLES Final Result Performing Organization Address City/[facility]/ZIP Co de Phone Number ALESSANDRA [facility] Department [place] [address] * ECG 12 lead (07/29/2024 11:14 AM CAT SCANNER OPERATOR) Ventricular Rate EKG/Min 117 BPM [facility] Atrial Rate 117 BPM [facility] WA-Interval (MSEC) 144 ms [facility] QRS-Interval (MSEC) 126 ms [facility] QT-Interval (MSEC) 366 ms [facility] QTc 510 ms [facility] R [place] -40 degrees [facility] T [place] 147 degrees [facility] Diagnosis Poor data quality, interpretation may [...] SAL M.D ([id number]) on 07/29/2024 3:38:41 PM [facility] 07/29/2024 11:1 4 AM CAT SCANNER OPERATOR 07/29/2024 3:38 PM CAT SCANNER OPERATOR Jossie King MD ECG ORDERABLES Fi nal Result Performing Organization Address City/[facility]/ZIP Co de Phone Number [facility] * ABO/Rh (07/29/2024 11:13 AM CAT SCANNER OPERATOR) ABO Rh A Positive Blood 07/29/2024 11:1 3 AM CAT SCANNER OPERATOR 07/29/2024 2:45 PM CAT SCANNER OPERATOR us Jossie King MD LAB BLOOD BANK ERNESTO T ORDERABLES Final Result ALESSANDRA CARR[facility] Department [place] [address] * LR HLA Typing (Class I and Class II) (07/29/2024 11:01 AM CAT SCANNER OPERATOR) r-SSO HISTOTRAC A First Allele A*03 [...] 07/30/24 [facility] Blood 07/29/2024 11:0 1 AM CAT SCANNER OPERATOR 08/02/2024 9:03 AM CAT SCANNER OPERATOR Narrative [facility] - 08/02/2024 9:03 AM CAT SCANNER OPERATOR DNA was extracted from whole blood or buccal cell specimens, and relevant genomic regions were amplified by polymerase chain reactions (PCR). HLA typing was performed on PCR amplicons using reverse sequence-specific oligonucleotide (r-SSO) and/or sequence-specific primers (SSP) based techniques. r-SSO and SSP are FDA approved as IVD tests and validated by the [facility]. Testing performed at the [facility], [facility] [address], [place], [address]. [facility] # [id number]. Dorothy Meade, Ph.D., Coin Teller, HLA Laboratory Rell Samuels M.D., Ph.D., Roof Shingler, HLA Laboratory Licha Nieto, Ph.D., [place] Roof Shingler, [facility] Clinical Laboratories Current methodology comment last revised on 04/25/17. Jossie King MD LAB BLOOD ORDERABL ES Final Result Performing Organization Address [facility] de Phone Number HISTOTR[facility] * Collection Task for HLA Typing 1 (07/29/2024 11:01 AM CAT SCANNER OPERATOR) HLA Class I DNA (ABC) Recipient Received Blood 07/29/2024 11:0 1 AM CAT SCANNER OPERATOR 07/29/2024 11:56 AM CAT SCANNER OPERATOR Jossie King MD LAB BLOOD ORDERABL ES Final Result Performing Organization Address [facility] Co de Phone Number ALESSANDRA [facility] Department [place] [address] * Collection Task for HLA Antibody Screen (07/29/2024 11:01 AM CAT SCANNER OPERATOR) HLA Antibody Screen By Single Antigen Received Blood 07/29/2024 11:0 1 AM CAT SCANNER OPERATOR 07/29/2024 11:56 AM CAT SCANNER OPERATOR Jossie King MD LAB BLOOD ORDERABL ES Final Result Performing Organization Address [facility] Co de Phone Number ALESSANDRA [facility] Department [place] [address] * Collection Task for HLA Typing 2, Patient (07/29/2024 11:01 AM CAT SCANNER OPERATOR) HLA Class II DNA (DR, DQ, DP) Recipient Received Blood 07/29/2024 11:0 1 AM CAT SCANNER OPERATOR 07/29/2024 11:56 AM CAT SCANNER OPERATOR us Jossie King MD LAB BLOOD ORDERABL ES Final Result Performing Organization Address [facility] Co de Phone Number ALESSANDRA CARRION [facility] [place] [address] * (ABNORMAL) eGFR (07/29/2024 11:01 AM CAT SCANNER OPERATOR) eGFR 7(L) >=60 mL/min/1. 73 m2 Comment: [...] reviewed 2021. Blood 07/29/2024 11:0 1 AM CAT SCANNER OPERATOR 07/29/2024 11:33 AM CAT SCANNER OPERATOR us Jossie King MD LAB BLOOD ORDERABL ES Final Result ALESSANDRA CARRION [facility] Department [place] [address] * Differential, auto (07/29/2024 11:01 AM CAT SCANNER OPERATOR) Neutrophil abs 3.1 1.5 - 6.5 K/cumm Imm gran abs 0.0 0.0 - 0.1 K/cumm [facility] Lymphocyte abs 1.1 0.8 - 3.3 K/cumm [facility] Monocyte abs 0.7 0.2 - 0.8 K/cumm [facility] Eosinophil abs 0.2 0.0 - 0.5 K/cumm [facility] Basophil abs 0.0 0.0 - 0.1 K/cumm [facility] Neutrophil pct 60.3 % [facility] Comment: Interpretive Data Percent cell count reference ranges are not reported, since discordance with absolute values may lead to misinterpretation of CBC data. Current Interpretive Data was last revised on 2017. Imm gran pct 0.6 % [facility] Comment: Interpretive Data Percent cell count reference ranges are not reported, since discordance with absolute values may lead to misinterpretation of CBC data. Current Interpretive Data was last revised on 2017. Lymphocyte pct 21.4 % [facility] Comment: Interpretive Data Percent cell count reference ranges are not reported, since discordance with absolute values may lead to misinterpretation of CBC data. Current Interpretive Data was last revised on 2017. Monocyte pct 13.7 % [facility] Comment: Interpretive Data Percent cell count reference ranges are not reported, since discordance with absolute values may lead to misinterpretation of CBC data. Current Interpretive Data was last revised on 2017. Eosinophil pct 3.2 % [facility] Comment: Interpretive Data Percent cell count reference ranges are not reported, since discordance with absolute values may lead to misinterpretation of CBC data. Current Interpretive Data was last revised on 2017. Basophil pct 0.8 % [facility] Comment: Interpretive Data Percent cell count reference ranges are not reported, since discordance with absolute values may lead to misinterpretation of CBC data. Current Interpretive Data was last revised on 2017. Blood 07/29/2024 11:0 1 AM CAT SCANNER OPERATOR 07/29/2024 11:34 AM CAT SCANNER OPERATOR Result [facility] Jossie King MD LAB BLOOD ORDERABL ES Final Result Performing Organization Address [facility] Co de Phone Number [facility] Department [place] [address] * PSA screen (07/29/2024 11:01 AM CAT SCANNER OPERATOR) Pathologist [facility] [place] PSA-Total 0.55 <=3.90 ng/mL Comment: Interpretive Data [...] revised 21. Blood 07/29/2024 11:0 1 AM CAT SCANNER OPERATOR 07/29/2024 11:33 AM CAT SCANNER OPERATOR Narrative [facility] - 07/29/2024 12:39 PM CAT SCANNER OPERATOR This lab is being obtained as part of a Kidney transplant evaluation, is time sensitive, and should only be drawn during the evaluation visit at [facility]. Jossie King MD LAB BLOOD ORDERABL ES Final Result Performing Organization Address [facility] Co de Phone Number [facility] Department [place] [address] * (ABNORMAL) Iron profile w/ IBC (07/29/2024 11:01 AM CAT SCANNER OPERATOR) Pathologist [facility] [place] Iron 62 50 - 150 mcg/dL TIBC 208(L) 250 - 400 mcg/dL [facility] Transferrin saturation 30 20 - 50 % [facility] Blood 07/29/2024 11:0 1 AM CAT SCANNER OPERATOR 07/29/2024 11:33 AM CAT SCANNER OPERATOR Narrative ALESSANDRA [facility] - 07/29/2024 12:10 PM CAT SCANNER OPERATOR This lab is being obtained as part of a Kidney transplant evaluation, is time sensitive, and should only be drawn during the evaluation visit at [address] Jossie King MD LAB BLOOD ORDERABL ES Final Result Performing Organization Address [facility] de Phone Number [facility] [place] [address] * HIV 1/2 Antibody plus p24 Antigen Blood (07/29/2024 11:01 AM CAT SCANNER OPERATOR) Pathologist [facility] [place] HIV 1/2 ab + p24 ag Nonreactive Nonreactive Comment:Nonreactive for HIV- 1 antigen and HIV-1/HIV-2 antibodies. No laboratory evidence of HIV infection. If acute HIV infection is suspected, consider testing for HIV-1 RNA. Current interpretive data was last revised on 22. Blood 07/29/2024 11:0 1 AM CAT SCANNER OPERATOR 07/29/2024 11:32 AM CAT SCANNER OPERATOR Narrative [facility] - 07/29/2024 12:13 PM CAT SCANNER OPERATOR This lab is being obtained as part of a Kidney transplant evaluation, is time sensitive, and should only be drawn during the evaluation visit at [address] Jossie King MD LAB MICROBIOLOGY - GENERAL ORDERABLES Final Result Performing Organization Address [facility] de Phone Number [facility] Department [place] [address] * (ABNORMAL) CMV, IgG Blood (07/29/2024 11:01 AM CAT SCANNER OPERATOR) Pathologist [facility] [place] CMV IgG [...] CMV infection. Blood 07/29/2024 11:0 1 AM CAT SCANNER OPERATOR 07/29/2024 11:33 AM CAT SCANNER OPERATOR Narrative ALESSANDRA [facility] - 07/29/2024 1:44 PM CAT SCANNER OPERATOR This lab is being obtained as part of a Kidney transplant evaluation, is time sensitive, and should only be drawn during the evaluation visit at [facility]. Jossie King MD LAB MICROBIOLOGY - GENERAL ORDERABLES Final Result AL[facility]ANDRA [facility] Department [place] [address] * HLA Antibody Screen - SAB (Class I and Class II) (07/29/2024 11:01 AM CAT SCANNER OPERATOR) Class I Treatment EDTA HISTOT[facility] Class [...] DR52 H[facility] Blood 07/29/2024 11:0 1 AM CAT SCANNER OPERATOR 08/02/2024 9:46 AM CAT SCANNER OPERATOR Narrative [facility] - 08/02/2024 9:46 AM CAT SCANNER OPERATOR Single-antigen HLA antibody screen is performed on serum samples using a method developed and validated by the [facility] HLA laboratory based on an FDA-approved IVD kit (LABScreen Single-Antigen, [employer], [place], [place]). All patient serum samples are pretreated with EDTA before the screen to prevent complement interference. Additional serum treatments, such as adsorption and DTT treatment, may be performed as indicated. Interpretive comments: Low risk: MFI [id number]. Moderate risk: MFI [id number]. Increased risk: MFI >/= 5000. The presence [...] antigens to avoid. Testing performed at the [facility] Laboratory, [address] [place] [address], 5th floor, [place], [address]. [place] # [id number]. Dorothy Meade, Ph.D., Coin Teller, HLA Laboratory Rell Samuels M.D., Ph.D., Roof Shingler, HLA Laboratory Licha Nieto, Ph.D., CLIA Roof Shingler, [facility] Laboratories Current methodology and interpretive comments last revised on 09/15/2022. us Jossie King MD LAB BLOOD ORDERABL ES Final Result [facility] * (ABNORMAL) CBC with auto differential (07/29/2024 11:01 AM CAT SCANNER OPERATOR) WBC 5.1 3.8 - 9.9 K/cumm Hgb 11.5(L) 13.0 - 17.5 g/dL [facility] Hct 34.4(L) 38.9 - 50.3 % [facility] Plt 208 150 - 400 K/cumm [facility] [facility] MPV 10.8 9.1 - 12.3 fL [facility] RBC 3.76(L) 4.30 - 5.80 M/cumm [facility] MCV 91.5 81.3 - 96.4 fL [facility] MCH 30.6 27.1 - 33.3 pg [facility] MCHC 33.4 32.3 - 35.7 g/dL [facility] RDW CV 14.3 11.1 - 14.9 % [facility] RDW SD 47.9 35.7 - 48.1 fL [facility] NRBC abs 0.00 0.00 - 0.01 K/cumm [facility] Blood 07/29/2024 11:0 1 AM CAT SCANNER OPERATOR 07/29/2024 11:34 AM CAT SCANNER OPERATOR Narrative [facility] - 07/29/2024 11:45 AM CAT SCANNER OPERATOR This lab is being obtained as part of a Kidney transplant evaluation, is time sensitive, and should only be drawn during the evaluation visit at [address] Jossie King MD LAB BLOOD ORDERABL ES Final Result Performing Organization Address City/[facility]/ZIP Co de Phone Number [facility] Department [place] [address] * Hepatitis C antibody Blood (07/29/2024 11:01 AM CAT SCANNER OPERATOR) Hep C Ab Nonreactive Nonreactive Comment:Antibodies to HCV no t detected. Does NOT exclude the possibility of recent exposure to HCV. Current interpretive data was last revised on 22 Blood 07/29/2024 11:0 1 AM CAT SCANNER OPERATOR 07/29/2024 11:32 AM CAT SCANNER OPERATOR Narrative [facility] - 07/29/2024 12:47 PM CAT SCANNER OPERATOR This lab is being obtained as part of a Kidney transplant evaluation, is time sensitive, and should only be drawn during the evaluation visit at [address] Lab[address] Jossie King MD LAB MICROBIOLOGY - GENERAL ORDERABLES Final Result [facility] Department [place] [address] * (ABNORMAL) Madiha-Morris virus (EBV) antibody panel Blood (07/29/2024 11:01 AM CAT SCANNER OPERATOR) Pathologist [facility] [place] EBV nuclear Ab Positive(A) Negative Comment:Indicates the presen ce of detectable IgG antibody to EBV Nuclear Antigen. EBV VCA IgG Positive(A) Negative [facility] Comment:Indicates the presen ce of antibody; 90% of the adult population will have been infected with EBV sometime in the past. EBV VCA IgM Negative Negative [facility] Comment:No detectable IgM an tibody to EBV-VCA. A negative result indicates no current infection with EBV. If clinical suspicion of acute EBV infection is present, testing should be repeated after one week. EBV interp Past Infection [facility] Blood 07/29/2024 11:0 1 AM CAT SCANNER OPERATOR 07/29/2024 11:33 AM CAT SCANNER OPERATOR Narrative [facility] - 07/29/2024 1:43 PM CAT SCANNER OPERATOR This lab is being obtained as part of a Kidney transplant evaluation, is time sensitive, and should only be drawn during the evaluation visit at [address] Jossie King MD LAB MICROBIOLOGY - GENERAL ORDERABLES Final Result Performing Organization Address City/State/[facility] Co de Phone Number [facility] Department [place] [address] * Hepatitis B core antibody, total Blood (07/29/2024 11:01 AM CAT SCANNER OPERATOR) [facility] Hep B core IgG/IgM Nonreactive Nonreactive Blood 07/29/2024 11:0 1 AM CAT SCANNER OPERATOR 07/29/2024 11:32 AM CAT SCANNER OPERATOR Narrative [facility] - 07/29/2024 12:47 PM CAT SCANNER OPERATOR This lab is being obtained as part of a Kidney transplant evaluation, is time sensitive, and should only be drawn during the evaluation visit at [address] Lab. Jossie King MD LAB MICROBIOLOGY - GENERAL ORDERABLES Final Result Performing Organization Address [facility] Co de Phone Number [facility] Department [place] [address] * Protein, urine, random (07/29/2024 11:01 AM CAT SCANNER OPERATOR) Protein, ur, quant 121.2 mg/dL Comment: Interpretive Data No reference range established. Current interpretive data was last revised 2019. Urine 07/29/2024 11:0 1 AM CAT SCANNER OPERATOR 07/29/2024 11:32 AM CAT SCANNER OPERATOR Narrative [facility] - 07/29/2024 12:18 PM CAT SCANNER OPERATOR This lab is being obtained as part of a Kidney transplant evaluation, is time sensitive, and should only be drawn during the evaluation visit at [address] Lab[address] Jossie King MD LAB URINE ORDERABL ES Final Result Performing Organization Address [facility] de Phone Number [facility] [place] [address] * Creatinine, urine, random (07/29/2024 11:01 AM CAT SCANNER OPERATOR) Creatinine Ur 167.1 mg/dL Comment: Interpretive Data No reference range established. Current interpretive data was last revised 2019. Urine 07/29/2024 11:0 1 AM CAT SCANNER OPERATOR 07/29/2024 11:32 AM CAT SCANNER OPERATOR Narrative [facility] - 07/29/2024 12:18 PM CAT SCANNER OPERATOR This lab is being obtained as part of a Kidney transplant evaluation, is time sensitive, and should only be drawn during the evaluation visit at [address] Jossie King MD LAB URINE ORDERABL ES Final Result Performing Organization Address [facility] Co de Phone Number [facility] [place] [address] * HSV 2 IgG Antibody Blood (07/29/2024 11:01 AM CAT SCANNER OPERATOR) Pathologist [facility] [place] HSV 2 IgG Nonreactive Nonreactive Comment: Interpretive Data 1. Nonreactive: No detectable IgG antibody to HSV-2. 2. Equivocal: Presence or absence of detectable antibodies to HSV-2 cannot be determined and the test should be repeated. 3. Reactive: Indicates presence of detectable IgG antibody to HSV-2. Current interpretive data was last revised on 2022. Blood 07/29/2024 11:0 1 AM CAT SCANNER OPERATOR 07/29/2024 11:33 AM CAT SCANNER OPERATOR Narrative [facility] - 07/29/2024 1:44 PM CAT SCANNER OPERATOR This lab is being obtained as part of a Kidney transplant evaluation, is time sensitive, and should only be drawn during the evaluation visit at [address] Jossie King MD LAB MICROBIOLOGY - GENERAL ORDERABLES Final Result Performing Organization Address [facility] de Phone Number [facility] Department [place] [address] * (ABNORMAL) HSV 1 IgG Antibody Blood (07/29/2024 11:01 AM CAT SCANNER OPERATOR) [facility] HSV 1 IgG Reactive( A) Nonreactive Comment: Interpretive Data 1. Nonreactive: No detectable IgG antibody to HSV-1. 2. Equivocal: Presence or absence of detectable antibodies to HSV-1 cannot be determined and the test should be repeated. 3. Reactive: Indicates presence of detectable IgG antibody to HSV-1. Current interpretive data was last revised on 2016. Blood 07/29/2024 11:0 1 AM CAT SCANNER OPERATOR 07/29/2024 11:33 AM CAT SCANNER OPERATOR Narrative [facility] - 07/29/2024 1:44 PM CAT SCANNER OPERATOR This lab is being obtained as part of a Kidney transplant evaluation, is time sensitive, and should only be drawn during the evaluation visit at [address] Jossie King MD LAB MICROBIOLOGY - GENERAL ORDERABLES Final Result Performing Organization Address [facility] Co de Phone Number [facility] Department [place] [address] * RPR Blood (07/29/2024 11:01 AM CAT SCANNER OPERATOR) Pathologist [facility] [place] RPR Nonreactive Nonreactive Blood 07/29/2024 11:0 1 AM CAT SCANNER OPERATOR 07/29/2024 11:33 AM CAT SCANNER OPERATOR Narrative [facility] - 07/29/2024 12:34 PM CAT SCANNER OPERATOR This lab is being obtained as part of a Kidney transplant evaluation, is time sensitive, and should only be drawn during the evaluation visit at [address] Lab[address] Jossie King MD LAB MICROBIOLOGY - GENER[place] [address] * Hepatitis B surface antibody (immune status) Blood (07/29/2024 11:01 AM CAT SCANNER OPERATOR) [facility] HBsAb (immune status) Reactive Comment:This result is consi stent with immunity to Hepatitis B Virus when used in the setting of routine screening. Current interpretive data was last revised on 22 Blood 07/29/2024 11:0 1 AM CAT SCANNER OPERATOR 07/29/2024 11:32 AM CAT SCANNER OPERATOR Narrative [facility] - 07/29/2024 12:47 PM CAT SCANNER OPERATOR This lab is being obtained as part of a Kidney transplant evaluation, is time sensitive, and should only be drawn during the evaluation visit at [address] Lab. Jossie King MD LAB MICROBIOLOGY - GENERAL ORDERABLES Final Result [facility] [place] [address] * Hepatitis B Surface Antigen Blood (07/29/2024 11:01 AM CAT SCANNER OPERATOR) Pathologist [facility] [place] HepBsAg Nonreactive Nonreactive Blood 07/29/2024 11:0 1 AM CAT SCANNER OPERATOR 07/29/2024 11:32 AM CAT SCANNER OPERATOR Narrative [facility] - 07/29/2024 12:47 PM CAT SCANNER OPERATOR This lab is being obtained as part of a Kidney transplant evaluation, is time sensitive, and should only be drawn during the evaluation visit at [address] Jossie King MD LAB MICROBIOLOGY - GENERAL ORDERABLES Final Result Performing Organization Address [facility] de Phone Number [facility] Department [place] [address] * (ABNORMAL) aPTT (07/29/2024 11:01 AM CAT SCANNER OPERATOR) aPTT 61(H) 28 - 38 sec Comment: Interpretive Data Heparin therapeutic range: 66.0 - 100.0 seconds. Range based on correlation with therapeutic heparin activity range of 0.3 - 0.7 Units/mL. Current interpretive data was last revised on 2023. Blood 07/29/2024 11:0 1 AM CAT SCANNER OPERATOR 07/29/2024 11:32 AM CAT SCANNER OPERATOR Narrative [facility] - 07/29/2024 11:42 AM CAT SCANNER OPERATOR This lab is being obtained as part of a Kidney transplant evaluation, is time sensitive, and should only be drawn during the evaluation visit at [address] Jossie King MD LAB BLOOD ORDERABL ES Final Result Performing Organization Address [facility] de Phone Number [facility] Department [place] [address] * (ABNORMAL) Protime-INR (07/29/2024 11:01 AM CAT SCANNER OPERATOR) PT 50.6(H) 9.7 - 13.0 sec INR 4.54(H) 0.90 - 1.20 [facility] Comment: Interpretive data Oral anticoagulant therapeutic ranges: Venous thromboembolism prophylaxis or treatment: 2.0-3.0 CARDIOLOGY Standard range: 2.0-3.0 High-intensity range: 2.5-3.5 Refer to indication-specific guidelines for appropriate target ranges for prosthetic heart valve replacement. Current interpretive data was last revised on 2019. Blood 07/29/2024 11:0 1 AM CAT SCANNER OPERATOR 07/29/2024 11:32 AM CAT SCANNER OPERATOR Narrative [facility] - 07/29/2024 11:42 AM CAT SCANNER OPERATOR This lab is being obtained as part of a Kidney transplant evaluation, is time sensitive, and should only be drawn during the evaluation visit at [address] Jossie King MD LAB BLOOD ORDERABL ES Final Result Performing Organization Address [facility] de Phone Number [facility] [place] [address] * Varicella Zoster IgG antibody Blood (07/29/2024 11:01 AM CAT SCANNER OPERATOR) Pathologist [facility] [place] VZV IgG Reactive Reactive Comment:Reactive: Results diego ggest response to immunization or prior exposure to the virus. Blood 07/29/2024 11:0 1 AM CAT SCANNER OPERATOR 07/29/2024 11:33 AM CAT SCANNER OPERATOR Narrative [facility] 07/29/2024 1:45 PM CAT SCANNER OPERATOR This lab is being obtained as part of a Kidney transplant evaluation, is time sensitive, and should only be drawn during the evaluation visit at [address] Jossie King MD LAB MICROBIOLOGY - GENERAL ORDERABLES Final Result Performing Organization Address [facility] de Phone Number [facility] Department [place] [address] * (ABNORMAL) Uric acid (07/29/2024 11:01 AM CAT SCANNER OPERATOR) Pathologist [facility] [place] Uric acid 2.0(L) 3.0 - 8.0 mg/dL Blood 07/29/2024 11:0 1 AM CAT SCANNER OPERATOR 07/29/2024 11:33 AM CAT SCANNER OPERATOR Narrative [facility] - 07/29/2024 12:10 PM CAT SCANNER OPERATOR This lab is being obtained as part of a Kidney transplant evaluation, is time sensitive, and should only be drawn during the evaluation visit at [address] Jossie King MD LAB BLOOD ORDERABL ES Final Result Performing Organization Address City/State/[facility] Co de Phone Number [facility] [place] [address] * (ABNORMAL) Phosphorus (07/29/2024 11:01 AM CAT SCANNER OPERATOR) Phosphorus, pl 5.1(H) 2.3 - 4.5 mg/dL Blood 07/29/2024 11:0 1 AM CAT SCANNER OPERATOR 07/29/2024 11:33 AM CAT SCANNER OPERATOR Narrative [facility] 07/29/2024 12:10 PM CAT SCANNER OPERATOR This lab is being obtained as part of a Kidney transplant evaluation, is time sensitive, and should only be drawn during the evaluation visit at [address]. Jossie King MD LAB BLOOD ORDERABL ES Final Result Performing Organization Address [facility] Co de Phone Number [facility] [place] [address] * (ABNORMAL) PTH (07/29/2024 11:01 AM CAT SCANNER OPERATOR) PTH 444(H) 15 - 65 pg/mL Blood 07/29/2024 11:0 1 AM CAT SCANNER OPERATOR 07/29/2024 11:34 AM CAT SCANNER OPERATOR Narrative [facility] 07/29/2024 12:02 PM CAT SCANNER OPERATOR This lab is being obtained as part of a Kidney transplant evaluation, is time sensitive, and should only be drawn during the evaluation visit at [address] Jossie King MD LAB BLOOD ORDERABL ES Final Result Performing Organization Address City/[facility] Co de Phone Number [facility] [place] [address] * (ABNORMAL) Hemoglobin A1c (07/29/2024 11:01 AM CAT SCANNER OPERATOR) [facility] Hgb A1C 9.0(H) 4.0 - 5.6 % Estimated Average Glucose 212 mg/dL [facility] Comment: The ADA recommends reporting an estimated Average Glucose (eAG) with all Hemoglobin A1c results using the equation derived from a study of 507 normal and diabetic adults. Minority populations were underrepresented and children were not included. (Diabetes Care 2020; 43(S1): S66-S76). The eAG is not equivalent to a fasting glucose. Blood 07/29/2024 11:0 1 AM CAT SCANNER OPERATOR 07/29/2024 11:34 AM CAT SCANNER OPERATOR Narrative [facility] - 07/29/2024 11:53 AM CAT SCANNER OPERATOR This lab is being obtained as part of a Kidney transplant evaluation, is time sensitive, and should only be drawn during the evaluation visit at [address] Lab[address] Josise King MD LAB BLOOD ORDERABL ES Final Result Performing Organization Address City/[facility] Co de Phone Number [facility] Department [place] [address] * Gamma GT (07/29/2024 11:01 AM CAT SCANNER OPERATOR) [facility] GGT 22 10 - 50 Units/L Blood 07/29/2024 11:0 1 AM CAT SCANNER OPERATOR 07/29/2024 11:33 AM CAT SCANNER OPERATOR Narrative [facility] - 07/29/2024 12:40 PM CAT SCANNER OPERATOR This lab is being obtained as part of a Kidney transplant evaluation, is time sensitive, and should only be drawn during the evaluation visit at [address] Lab. Jossie King MD LAB BLOOD ORDERABL ES Final Result [facility] Department [place] [address] * (ABNORMAL) Ferritin (07/29/2024 11:01 AM CAT SCANNER OPERATOR) [facility] Ferritin 761(H) 30 - 400 ng/mL Blood 07/29/2024 11:0 1 AM CAT SCANNER OPERATOR 07/29/2024 11:33 AM CAT SCANNER OPERATOR Narrative [facility] - 07/29/2024 12:10 PM CAT SCANNER OPERATOR This lab is being obtained as part of a Kidney transplant evaluation, is time sensitive, and should only be drawn during the evaluation visit at [facility] Lab. us Jossie King MD LAB BLOOD ORDERABL ES Final Result [facility] Department [place] [address] * (ABNORMAL) Lipid panel (07/29/2024 11:01 AM CAT SCANNER OPERATOR) Cholesterol 114 30 - 199 mg/dL [...] on 2018. Triglycerides 66 <=149 mg/dL [facility] Comment: Interpretive Data Ages < or [...] on 2018. HDL 29(L) >=40 mg/dL [facility] Comment: Interpretive Data Ages < or [...] 2018. LDL, calculated 71 <=129 mg/dL [facility] Comment: Interpretive Data Ages < or [...] on 2024. Non-HDL Cholesterol 85 mg/dL [facility] Comment: Interpretive Data Ages < or [...] revised on 2018. Chol/HDL ratio 4 [facility] Blood 07/29/2024 11:0 1 AM CAT SCANNER OPERATOR 07/29/2024 11:33 AM CAT SCANNER OPERATOR Narrative [facility] - 07/29/2024 12:10 PM CAT SCANNER OPERATOR This lab is being obtained as part of a Kidney transplant evaluation, is time sensitive, and should only be drawn during the evaluation visit at [facility] Lab. Jossie King MD LAB BLOOD ORDERABL ES Final Result [facility] Department [place] [address] * (ABNORMAL) Comprehensive metabolic panel (07/29/2024 11:01 AM CAT SCANNER OPERATOR) Sodium 136 135 - 145 mmol/L Potassium, pl 4.6 3.3 - 4.9 mmol/L [facility] Chloride 93(L) 97 - 110 mmol/L [facility] CO2 26 22 - 32 mmol/L [facility] Anion gap 17(H) 2 - 15 mmol/L [facility] BUN 65(H) 6 - 25 mg/dL [facility] Creatinine 8.07(H) 0.80 - 1.30 mg/dL [facility] Glucose 280(H) 70 - 199 mg/dL [facility] Comment: Interpretive Data Fasting glucose >/= [...] Calcium 9.4 8.5 - 10.3 mg/dL [facility] Bilirubin, total 0.3 0.1 - 1.2 mg/dL [facility] Protein, pl 7.2 6.5 - 8.5 g/dL [facility] Albumin 3.8 3.5 - 5.0 g/dL [facility] Alk phos 99 40 - 130 Units/L [facility] ALT 30 7 - 55 Units/L [facility] AST 31 10 - 50 Units/L [facility] Blood 07/29/2024 11:0 1 AM CAT SCANNER OPERATOR 07/29/2024 11:33 AM CAT SCANNER OPERATOR Narrative [facility] - 07/29/2024 12:10 PM CAT SCANNER OPERATOR This lab is being obtained as part of a Kidney transplant evaluation, is time sensitive, and should only be drawn during the evaluation visit at [facility] Lab. us Jossie King MD LAB BLOOD ORDERABL ES Final Result [facility] Department [place] [address] * (ABNORMAL) Oxalate (oxalic acid) (07/29/2024 10:53 AM CAT SCANNER OPERATOR) Oxalate 12.3(H) <=2.0 mcmol/L [facility] Comment: High value suggestive of Primary Hyperoxaluria. However, if the patient has chronic kidney disease (GFR<30 mL/min/1.73m2), plasma oxalate values up to 30 mcmol/L can be normal. The [facility] Hyperoxaluria Center is available to review case details and answer any questions regarding interpretation ([email or web address]; [phone]) ADDITIONAL INFORMATION This test has been modified from the balance wheel facer's instructions. Its performance characteristics were determined by [facility] in a manner consistent with CLIA requirements. This test has not been cleared or approved by the U.S. Food and Drug Administration. Test Performed by: [facility] - [address] [address] Thermostat Repairer: Jairo Higgins Ph.D.; CLIA# [id number] Blood 07/29/2024 10:5 3 AM CAT SCANNER OPERATOR 07/29/2024 11:37 AM CAT SCANNER OPERATOR Jossie King MD LAB BLOOD ORDERABL ES Final Result Performing Organization Address City/[facility]/ZIP Co de Phone Number [facility] Department [place] [address] [place] [facility] * (ABNORMAL) Urinalysis reflex to microscopic (07/29/2024 10:53 AM CAT SCANNER OPERATOR) Color, ur Yellow Yellow Clarity, ur Cloudy(A) Clear [facility] Specific gravity, ur 1.022 1.003 - 1.030 [facility] pH, urine 6.0 [facility] Comment: Interpretive Data U rine pH [...] 2017 Protein, ur ql 2+(A) Negative [facility] Glucose, ur ql 4+(A) Negative [facility] Ketones, ur Negative Negative [facility] Bilirubin, ur Negative Negative [facility] Blood, ur 3+(A) Negative [facility] Urobilinogen, ur <2.0 <2.0 mg/dL [facility] Nitrite, ur Negative Negative [facility] Leukocyte esterase, ur 2+(A) Negative [facility] UA reflex comment Reflex to microscopic UA will be performed. [facility] Urine 07/29/2024 10:5 3 AM CAT SCANNER OPERATOR 07/29/2024 11:27 AM CAT SCANNER OPERATOR Narrative [facility] - 07/29/2024 11:29 AM CAT SCANNER OPERATOR This lab is being obtained as part of a Kidney transplant evaluation, is time sensitive, and should only be drawn during the evaluation visit at [facility] Lab. Jossie King MD LAB URINE ORDERABL ES Final Result Performing Organization Address City/[facility]/ZIP Co de Phone Number [facility] Department [place] [address] * (ABNORMAL) Urinalysis, microscopic only (07/29/2024 10:53 AM CAT SCANNER OPERATOR) WBC, ur 21-50(A) 0 - 5 /HPF RBC, ur >50(A) 0 - 2 /HPF [facility] Epithelial cells, squamous, ur 1-5 0 - 5 /HPF [facility] Bacteria, ur Trace(A) [facility] Mucous, ur Present(A) [facility] Hyaline casts, ur 1-5 0 - 10 /LPF [facility] Urine 07/29/2024 10:5 3 AM CAT SCANNER OPERATOR 07/29/2024 11:27 AM CAT SCANNER OPERATOR us Jossie King MD LAB URINE ORDERABL ES Final Result [facility] Department [place] [address] * (ABNORMAL) TSH (10/27/2023 2:30 AM CAT SCANNER OPERATOR) Thyroid Stimulating Hormone 13.20(H) 0.30 - 4.20 mcIUnit/mL Blood 10/27/2023 2:30 AM CAT SCANNER OPERATOR 10/27/2023 2:42 AM CAT SCANNER OPERATOR us Lorne Mcnulty MD LAB BLOOD ORDERABLES Final Result [facility] [address] Department [place] [address] from Last 3 Months or Most Recently Relevant to Health Maintenance
--- OUTSIDE RECORDS SUMMARY | 2024-10-24 17:53 | XMS_ITS | Clinical Summary ---
Author Organization [facility] Lu[facility] marquez Address [address] [place] [id number] Phone Care Team Providers Care Water Treatment Plant Supervisor Name Role Phone Unavailable Primary Care [...] daily 0 12/27/2017 Active Cholecalciferol (VITAMIN D3) 07082 units capsule 1 tab by mouth once [...]
--- OUTSIDE RECORDS SUMMARY | 2024-10-24 17:54 | XMS_ITS | Referral Summary ---
Author Organization [facility] Address [address] [place] [address] Care Team Providers Care Cattle Tester Name Role Phone Aditya Castro MD Primary Care Provider [phone] Alondra Lambert RN Unavailable [phone] Shannon Brock MD, Hamlet Gordon Unavailable [phone] Leandro Reyes MD Unavailable [phone] Encounters Date Type Department Care Team Description 09/12/2024 Orders Only [facility] Cardiology [address] [place] [id number] Lalit Machuca MD 08/06/[address] [facility] Transplant Kidney [address] [facility] [address] Mail[address] [phone] [place] [address] Alondra Lambert RN 07/30/[address] [facility] Trans[facility]ney [address] [facility] [address] Mailstop [phone] [place] [address] Alondra Lambert RN 07/29/2024 10:55 AM PCAS - 07/29/2024 11:59 PM PCAS Hospital Encounter [facility] ([facility]) [address] [place] [address] End stage renal disease (HCC) Discharge Disposition: Discharge to home or self care 07/29/2024 10:53 AM PCAS - 07/29/2024 11:59 PM PCAS Hospital Encounter [facility] ([facility]) [address] [place] [address] End stage renal disease (HCC) Discharge Disposition: Discharge to home or self care 07/29/2024 1:15 PM PCAS Lab [facility] ([facility]) [address] [place] [phone] End stage renal disease (HCC); ESRD (end stage renal disease) ([facility]) 07/29/[address] [facility] Transplant Kidney [address] [facility] [address] Mailstop [phone] [place] [address] Alondra Lambert RN 07/29/2024 10:58 AM PCAS - 07/29/2024 11:59 PM PCAS Hospital Encounter [facility] ([facility]) [address] [place] [address] End stage renal disease (HCC) Discharge Disposition: Discharge to home or self care 07/29/2024 9:00 AM PCAS Social Work [facility] [address] [place] [address] [facility] [place], [address]th Floor, [place] [address] 07/29/2024 11:02 AM PCAS - 07/29/2024 11:59 PM PCAS Hospital Encounter [facility] Pulmonary Rehabilitiation Program [address] [place] [address] Advanced Medicine [address] [place] [address] Discharge Disposition: Discharge to home or self care 07/29/2024 1:00 PM PCAS Office Visit 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 Transplant Kidney [address] [facility] [address] Mailstop [phone] [place] [address] Elsie Cornejo 07/26/[address] [facility] Trans[facility]ney [address] [facility] [address] Mailstop [phone] [place] [address] Alondra Lambert RN ESRD (end stage renal disease) (HCC) (Primary Dx) 07/26/[address] [facility] Transplant Kidney [address] [facility] [address] Mailstop [phone] [place] [address] Alondra Lambert, LUAN from Last 3 Months Allergies Active Allergy [...] THIS IS FOR THE INSULIN PUMP: Continue Unrulyipod 5 insulin pump with [employer] G6 CGM at home settings: TIME BASAL [...] 1 tablet (25 mcg total) by mouth outreach analyst before breakfast 30 tablet 1 11/04/19 [...] mg SL tablet 12/28/19 18 Active peg [id number]-xzqtcdhvhvcr-ic ycerin (ARTIFICAL TEARS) 1-0.2-0.2 % ophthalmic solution 1 drop 4 (four) times a day 07/07/20 22 Active potassium chloride ER 20 mEq CR tablet Active Active Problems Problem Noted Date Diagnosed Date End stage renal disease 07/29/2024 Nonrheumatic aortic valve stenosis 11/22/2023 Status post aortic valve replacement 11/22/2023 Status post coronary artery bypass grafting 10/2023 CAD in [place] artery 10/13/2023 Anemia 06/22/2022 Assessment & Plan (06/29/2022 10:12 AM PCAS): Stable, likely 2/2 anemia from ESRD, no [...] 06/22/2022 Assessment & Plan (06/29/2022 10:12 AM PCAS): - Renal consulted, s/p CRRT in the ICU now back on PD. Tolerated well and nephrology following - Trialysis catheter removed - Continue vitamins for renal bone mineral disease. Assessment & Plan (06/28/2022 3:29 PM PCAS): - Renal consulted, s/p CRRT in the [...] 06/22/2022 Assessment & Plan (06/29/2022 10:12 AM PCAS): C/b cardiogenic shock requiring impella in the setting of cath and AHRF 2/2 pulmonary edema, now resolved. TTE demonstrating recovered EF 65% with grade I diastolic dysfunction. - metop as above - continue low dose losartan 12.5mg daily, ok per nephro. Tolerating well - volume management per PD Assessment & Plan (06/28/2022 3:29 PM PCAS): C/b cardiogenic shock requiring impella in the [...] 06/22/2022 Assessment & Plan (06/29/2022 10:12 AM PCAS): Converted to NSR overnight on 06/24. CHADsVASc of 4 not on anticoagulation prior to admission. - cardiology consulted - recommended ongoing rate control - holding off on a/c with high risk for bleeding while on DAPT - reduced metop to 25mg BID in the setting of hypotension, HR 70s NSR Assessment & Plan (06/28/2022 3:30 PM PCAS): Converted to NSR overnight on 06/24. CHADsVASc [...] 08/22/2021 Assessment & Plan (06/29/2022 10:11 AM PCAS): With recurrent chest pain post-cath. He has [...] today Assessment & Plan (06/28/2022 3:30 PM PCAS): With recurrent chest pain post-cath. He has [...] 06/22/2022 Assessment & Plan (06/29/2022 10:11 AM PCAS): Secondary to NSTEMI, s/p Impella since removed on 06/10. Resolved. Assessment & Plan (06/23/2022 4:55 PM CDT): Secondary to NSTEMI, s/p Impella since removed on 06/10. Resolved. Assessment & Plan (06/22/2022 8:22 PM CDT): -Secondary to NSTEMI, s/p Impella since removed on 06/10. Acute hypoxemic respiratory failure 06/09/2022 Assessment & Plan (06/29/2022 10:12 AM PCAS): Secondary to ACS and flash pulmonary edema, [...] (06/10/2022): Added automatically from request for surgery [id number] Abnormal cardiovascular stress test 12/29/2020 Overview (12/29/2020): Added automatically from request for surgery [id number] 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n ative artery of [place] heart with stable angina pectoris ([facility]) 05/23/2017 History of coronary artery stent placement [...] 01/18/2013 Assessment & Plan (06/29/2022 10:12 AM PCAS): A1c well controlled on admission. He uses [...] session Assessment & Plan (06/28/2022 3:28 PM PCAS): A1c well controlled on admission. He uses [...] In the past 12 months has e [employer], gas, oil, or water [employer] threatened to shut off services in your [...] How often do you attend anglican or worship serv ices? Never 08/01/2024 Do you belong [...] a senior living (including now)? No 10/16/2023 Housing Stability Vital Sign Answer Rubens e Recorded In the last 12 months, was t here a time when you were not able to pay the mortgage or rent on time? No 08/01/2024 In the past 12 months, how m any times have you moved where you were living? 1 08/01/2024 At any time in the past 12 m [facility], were you homeless or living in a senior living (including now)? No 08/01/2024 Personal Safety Answer Date Recorded Have you ever been in or are you currently in a harmful physical or emotional relationship or is someone making you feel afraid or unsafe? 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 Male 3:42 AM PCAS Gender Identity Not on file Sexual Orientation Not on file Last Filed Vital Signs Vital Sign Reading Time Taken Comments Blood Pressure 122/75 07/29/2024 1:00 PM PCAS Pulse 116 07/29/2024 1:00 PM PCAS Temperature 36.8 C (98.2 F) 07/29/2024 1:00 PM PCAS Respiratory Rate 16 12/01/2023 11:1 3 AM CDT Oxygen Saturation 96% 12/01/2023 11: 13 AM CDT Inhaled Oxygen Concentration - - Weight 121.2 kg (267 lb 1.6 oz) 07/29/2024 1:00 PM PCAS Height 177.8 cm (5' 10 ) 07/29/2024 1:00 PM PCAS Body Mass Index 38.32 07/29/2024 1:00 PM PCAS Plan of Treatment Not on file Medical Devices Implanted Type Area Supervisor Whipped Topping Device Identifier Shelf Expiration Date Model / Serial / Lot Kyle Vascular Device Clsr Perclose Prostyle Sut-Mediatd Closure-Repair Sys 55200-61 - [id number] Implanted:Qty: 1 on 06/10/2022 by Champ Osborne MD PhD at [facility] Other - see comments Right: Femoral [employer] 01/19/2024 [id number] / / [id number] [employer] Mary Synergy Xd Monorail 2.5mm 48mm 144cm Delivery System 1 Access [id number] - [id number] Implanted:Qty: 1 on 06/07/2022 by Champ Osborne MD PhD at [facility] Stent [employer] Mary 10/27/2023 [id number] / / [id number] [employer] Mary Synergy Xd Monorail 3mm 24mm 144cm Delivery System 1 Access Port [id number] - [id number] Implanted:Qty: 1 on 06/07/2022 by Champ Osborne MD PhD at [facility] Stent [employer] Mary 07/28/2023 [id number] / / [id number] [employer] Synergy Xd Monorail 2.5mm 12mm 144cm Delivery System 1 Access [id number] - [id number] Implanted:Qty: 1 on 06/07/2022 by Champ Osborne MD PhD at [facility] Stent [employer] Mary 05/03/2023 [id number] / [id number] / [id number] [facility] Mary [id number] Device Closure Angio-Seal Vip [place]-Plus Polyglyd L70 Cm Od6 Fr Odsec.035 In Vascular - [id number] Implanted:Qty: 1 on 01/21/2021 by Hamlet Ortega Jr., MD at [facility] Left: Groin [employer] Mary [id number] / / Kyle Vascular Device Clsr Perclose Prostyle Sut-Mediatd Closure-Repair Sys 66245-88 [id number] Implanted:Qty: 1 on 06/07/2022 by Champ Osborne MD PhD at [facility] [employer] 01/19/2024 [id number] / [id number] [employer] Device Clsr Perclose Prostyle Sut-Mediatd Closure-Repair Sys 35063-26 - [id number] Implanted:Qty: 1 on 06/07/2022 by Champ Osborne MD PhD at [facility] [employer] 11/19/2023 [id number] / / [id number] Bard Access Systems Power-Trialysis 13fr 30cm 3 Lumen Kink Resistance Symmetric Tip [id number] - [id number] Implanted:Qty: 1 on 06/07/2022 by Champ Osborne MD PhD at [facility] Right: Jugular Ramirez Paragon 07/20/2024 [id number] / / [id number] [employer] Impella Cp Percutaneous Left Ventricular Assist Device 4895-5100 - [id number] Implanted:Qty: 1 on 06/07/2022 by Champ Osborne MD PhD at [facility] Left: Ventricle [employer] [id number] / / Bard Access Systems Power-Trialysis 13fr 20cm 3 Lumen Short Term Dialysis Straight [id number] - [id number] Implanted:Qty: 1 on 06/18/2022 at [facility] Ramirez Chapito 07/20/2024 [id number] / / [id number] R[employer] Screw Bone Slf Drl Full Thread Locking 3.5x14mm Ti 100.035.14 - [id number] Implanted:Qty: 6 on 10/17/2023 by Lorne Mcnulty MD at [facility] N/A: Sternum [employer] 100.035.1 4 / / Rl [employer] Inc Plate Bone Low Profile 6 Hole H Shape Sternum Ti 115.102.06 - [id number] Implanted:Qty: 2 on 10/17/2023 by Lorne Mcnulty MD at [facility] N/A: Sternum [employer] 115.102.0 6 / / R[employer] Plate Bone Low Profile 6 Hole O Shape Sternum Ti 115.104.06 - [id number] Implanted:Qty: 1 on 10/17/2023 by Lorne Mcnulty MD at [facility] N/A: Sternum [employer] 115.104.0 6 / / On-X Intrnl Valve Coronary Aortic Mechanical On X 25mm Onxane-25 - [id number] - [id number] Implanted:Qty: 1 on 10/17/2023 by Lorne Mcnulty MD at [facility] N/A: Heart On-X Intrnl 01/22/2028 ONXANE-25 / [id number] / R[employer] Screw Bone Slf Drl Full Thread Locking 3.5x18mm Ti 100.035.18 - [id number] Implanted:Qty: 12 on 10/17/2023 by Lorne Mcnulty MD at [facility] N/A: Sternum [employer] 100.035.1 8 / / Explanted Type Area Supervisor Whipped Topping Device Identifier Shelf Expiration Date Model / Serial / Lot Bard Peripheral Vascular Bard .25x.25in [place] Thk1.65mm Square [employer] Ptfe [id number] - [id number] Explanted:Qty: 1 on 10/17/2023 by Lorne Mcnulty MD at [facility] N/A: Heart Bard Peripheral Vascular 05/18/2026 [id number] / / Procedures Procedure Name Priority Date/Time Associated Diagnosis Comments CARDIOLOGY DOCUMENT SCAN Routine 09/08/2024 11:26 AM PCAS CARDIOLOGY DOCUMENT SCAN Routine 09/07/2024 11:24 AM PCAS CARDIOLOGY DOCUMENT SCAN Routine 09/05/2024 11:06 AM PCAS HLA SOLID ORGAN TYPING REPORT 08/02/2024 9:04 AM PCAS SIX MINUTE WALK Routine 07/29/2024 2:46 PM PCAS End stage renal disease (HCC) CT ABDOMEN PELVIS WO CONTRAST Schedule Routine, Read Routine (OP Routine) 07/29/2024 12:43 PM PCAS End stage renal disease (HCC) XR ORTHOPANTOGRAM/PANOR EX Schedule Routine, Read Routine (OP Routine) 07/29/2024 11:44 AM PCAS End stage renal disease (HCC) TYPE AND SCREEN Routine 07/29/2024 11:23 AM PCAS End stage renal disease (HCC) ECG 12-LEAD Routine 07/29/2024 11:14 AM PCAS End stage renal disease (HCC) ABO/RH Routine 07/29/2024 11:13 AM PCAS EGFR Routine 07/29/2024 11:01 AM PCAS End stage renal disease (HCC) DIFFERENTIAL AUTO Routine 07/29/2024 11: 01 AM PCAS End stage renal disease (HCC) CBC WITH AUTO DIFFERENTIAL Routine 07/29/2024 11:01 AM PCAS End stage renal disease (HCC) COMPREHENSIVE METABOLIC PANEL Routine 07/29/2024 11:01 AM PCAS End stage renal disease (HCC) CREATININE, URINE, RANDOM Routine 07/29/2024 11:01 AM PCAS End stage renal disease (HCC) FERRITIN Routine 07/29/2024 11:01 AM PCAS End stage renal disease (HCC) GAMMA GT Routine 07/29/2024 11:01 AM PCAS End stage renal disease (HCC) HEMOGLOBIN A1C Routine 07/29/2024 11:01 AM PCAS End stage renal disease (HCC) IRON PROFILE W/ IBC Routine 07/29/2024 1 1:01 AM PCAS End stage renal disease (HCC) LIPID PANEL Routine 07/29/2024 11:01 AM PCAS End stage renal disease (HCC) PTH Routine 07/29/2024 11:01 AM PCAS End stage renal disease (HCC) APTT Routine 07/29/2024 11:01 AM PCAS End stage renal disease (HCC) PHOSPHORUS Routine 07/29/2024 11:01 AM PCAS End stage renal disease (HCC) PROTEIN, URINE, RANDOM Routine 07/29/2024 11:01 AM PCAS End stage renal disease (HCC) PROTIME-INR Routine 07/29/2024 11:01 AM PCAS End stage renal disease (HCC) URIC ACID Routine 07/29/2024 11:01 AM PCAS End stage renal disease (HCC) PSA SCREEN Routine 07/29/2024 11:01 AM PCAS End stage renal disease (HCC) LR HLA TYPING (CLASS I AND CLASS II) Routine 07/29/2024 11:01 AM PCAS End stage renal disease (HCC) HLA CLASS I DNA (ABC) RECIPIENT Routine 07/29/2024 11:01 AM PCAS End stage renal disease (HCC) HLA CLASS II DNA (DR, DQ, DP) RECIPIENT Routine 07/29/2024 11:01 AM PCAS End stage renal disease (HCC) HLA ANTIBODY SCREEN - SAB (CLASS I AND CLASS II) Routine 07/29/2024 11:01 AM PCAS End stage renal disease (HCC) HLA ANTIBODY SCREEN BY SINGLE ANTIGEN Routine 07/29/2024 11:01 AM PCAS End stage renal disease (HCC) CMV, IGG Routine 07/29/2024 11:01 AM PCAS End stage renal disease (HCC) MADIHA-MORRIS VIRUS VCA ANTIBODY PANEL Routine 07/29/2024 11:01 AM PCAS End stage renal disease (HCC) HIV 1/2 ANTIBODY PLUS P24 ANTIGEN Routine 07/29/2024 11:01 AM PCAS End stage renal disease (HCC) HSV 1 ANTIBODY, IGG Routine 07/29/2024 1 1:01 AM PCAS End stage renal disease (HCC) HSV 2 ANTIBODY, IGG Routine 07/29/2024 1 1:01 AM PCAS End stage renal disease (HCC) HEPATITIS B CORE ANTIBODY, TOTAL Routine 07/29/2024 11:01 AM PCAS End stage renal disease (HCC) HEPATITIS B SURFACE ANTIBODY (IMMUNE STATUS) Routine 07/29/2024 11:01 AM PCAS End stage renal disease (HCC) HEPATITIS B SURFACE ANTIGEN Routine 07/29/2024 11:01 AM PCAS End stage renal disease (HCC) HEPATITIS C ANTIBODY Routine 07/29/2024 11:01 AM PCAS End stage renal disease (HCC) RPR Routine 07/29/2024 11:01 AM PCAS End stage renal disease (HCC) VARICELLA ZOSTER ANTIBODY, IGG Routine 07/29/2024 11:01 AM PCAS End stage renal disease (HCC) URINALYSIS, MICROSCOPIC ONLY Routine 07/29/2024 10:53 AM PCAS End stage renal disease (HCC) OXALATE Routine 07/29/2024 10:53 AM PCAS ESRD (end stage renal disease) (HCC) URINALYSIS AND REFLEX TO MICROSCOPIC Routine 07/29/2024 10:53 AM PCAS End stage renal disease (HCC) TSH Routine 10/27/2023 2:30 AM PCAS from Last 3 Months or Most Recently Relevant to Health Maintenance Results * Cardiology Document Scan (09/08/2024 11:26 AM PCAS) Anatomical Region Laterality Modality Other Juan Christianson MD CV CARDIAC SERVICES PROCEDU RES Final Result * Cardiology Document Scan (09/07/2024 11:24 AM PCAS) Anatomical Region Laterality Modality Other Juan Christianson MD CV CARDIAC SERVICES PROCEDU RES Final Result * Cardiology Document Scan (09/05/2024 11:06 AM PCAS) Anatomical Region Laterality Modality Other Lalit Machuca MD CV CARDIAC SERVICES PROCEDURES F inal Result * HLA Solid Organ Typing Report (08/02/2024 9:04 AM PCAS) Jossie King MD LAB GENETIC TESTIN G Final Result * Six Minute Walk - (07/29/2024 2:46 PM PCAS) Anatomical Region Laterality Modality PFT Narrative 07/29/2024 3:52 PM PCAS Table formatting from the original result was not included. Davey Pickard V., DESIGN LEADER on 07/29/2024 2:45 PM Table formatting from the original note was not included. 6 MINUTE WALK RESULTS Name: Pilo Juvenalfabi Rodriguez Jr : 1970 DOS: 07/29/2024 Diagnosis: ESRD/KTE DESIGN LEADER performed walk: Carmenza Pickard Rest: 1 min [...] Prescription: RA at rest and with exercise [facility] Jaylen King MD RESPIRATORY CARE O TOMAS Final Result * CT Abdomen Pelvis WO Contrast (07/29/2024 12:43 PM PCAS) Anatomical Region Laterality Modality Body N/A Computed Tomogra phy 07/29/2024 1:04 PM PCAS Impressions 07/29/2024 1:04 PM PCAS 1. Moderate discontinuous atherosclerotic calcifications involve the [...] Teresa Rivera M.D. 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 Electronically signed by: Julio Pinedo M.D. Narrative 07/29/2024 12:59 PM PCAS EXAMINATION: XR ORTHOPANTOGRAM/PANOREX HISTORY: Kidney Transplant Evaluation [...] * Type and screen (07/29/2024 11:23 AM PCAS) Maribel, indirect Negative ABO Rh A Positive [facility] Blood 07/29/2024 11:2 3 AM PCAS 07/29/2024 11:43 AM PCAS N[facility]ative [facility] - 07/29/2024 12:45 PM PCAS Please draw the ABO and the Type and Screen as two separate blood draws with each stamped with the two different times stamps as this is a regulatory requirement for this patient to be listed for Kidney Transplant. This lab is being obtained as part of a Kidney transplant evaluation, is time sensitive, and should only be drawn during the evaluation visit at [facility] 3C Lab. Has the patient had Daratumumab or Isatuximab in the past 6 months?->Unknown Jossie King MD LAB BLOOD BANK ERNESTO T ORDERABLES Final Result [facility] Department [place] [address] * ECG 12 lead (07/29/2024 11:14 AM PCAS) Pathologist [facility] Ventricular Rate EKG/Min 117 BPM [facility] Atrial Rate 117 BPM [facility] SD-Interval (MSEC) 144 ms [facility] QRS-Interval (MSEC) 126 ms [facility] QT-Interval (MSEC) 366 ms [facility] QTc 510 ms [facility] R [place] -40 degrees [facility] T [place] 147 degrees [facility] Diagnosis Poor data quality, interpretation may [...] ([id number]) on 07/29/2024 3:38:41 PM [facility] 07/29/2024 11:1 4 AM PCAS 07/29/2024 3:38 PM PCAS Jossie King MD ECG ORDERABLES Fi nal Result [facility] * ABO/Rh (07/29/2024 11:13 AM PCAS) ABO Rh A Positive Blood 07/29/2024 11:1 3 AM PCAS 07/29/2024 2:45 PM PCAS Jossie King MD LAB BLOOD BANK ERNESTO T ORDERABLES Final Result [facility] [place] [address] * LR HLA Typing (Class I and Class II) (07/29/2024 11:01 AM PCAS) r-SSO H[facility]OT[facility]AC A [place] A*03 H[facility]OTRAC [...] 07/30/24 [facility] Blood 07/29/2024 11:0 1 AM PCAS 08/02/2024 9:03 AM PCAS Narrative [facility] - 08/02/2024 9:03 AM PCAS DNA was extracted from whole blood or buccal cell specimens, and relevant genomic regions were amplified by polymerase chain reactions (PCR). HLA typing was performed on PCR amplicons using reverse sequence-specific oligonucleotide (r-SSO) and/or sequence-specific primers (SSP) based techniques. r-SSO and SSP are FDA approved as IVD tests and validated by the [facility] Laboratory. Testing performed at the [facility], [address] [place] [address], 5th floor, [place], [address]. [facility] # [id number]. Dorothy Meade, Ph.D., Toys Inspector, HLA Laboratory Rell Samuels M.D., Ph.D., Hospice Volunteer, HLA Laboratory Licha Nieto, Ph.D., CLIA Hospice Volunteer, [facility] Clinical Laboratories Current methodology comment last revised on 04/25/17. Jossie King MD LAB BLOOD ORDERABL ES Final Result [facility] * Collection Task for HLA Typing 1 (07/29/2024 11:01 AM PCAS) HLA Class I DNA (ABC) Recipient Received Blood 07/29/2024 11:0 1 AM PCAS 07/29/2024 11:56 AM PCAS Jossie King MD LAB BLOOD ORDERABL ES Final Result [facility] [address] * Collection Task for HLA Antibody Screen (07/29/2024 11:01 AM PCAS) [facility] HLA Antibody Screen By Single Antigen Received Blood 07/29/2024 11:0 1 AM PCAS 07/29/2024 11:56 AM PCAS Jossie King MD LAB BLOOD ORDERABL ES Final Result Performing Organization Address City/[facility] Co de Phone Number [facility] [place] [address] * Collection Task for HLA Typing 2, Patient (07/29/2024 11:01 AM PCAS) [facility] HLA Class II DNA (DR, DQ, DP) Recipient Received Blood 07/29/2024 11:0 1 AM PCAS 07/29/2024 11:56 AM PCAS Jossie King MD LAB BLOOD ORDERABL ES Final Result Performing Organization Address City/[facility] Co de Phone Number [facility] [place] [address] * (ABNORMAL) eGFR (07/29/2024 11:01 AM PCAS) [facility] eGFR 7(L) >=60 mL/min/1. 73 m2 [...] reviewed 2021. Blood 07/29/2024 11:0 1 AM PCAS 07/29/2024 11:33 AM PCAS us Jossie King MD LAB BLOOD ORDERABL ES Final Result [facility] [place] [address] * Differential, auto (07/29/2024 11:01 AM PCAS) Neutrophil abs 3.1 1.5 - 6.5 K/cumm Imm gran abs 0.0 0.0 - 0.1 K/cumm [facility] Lymphocyte abs 1.1 0.8 - 3.3 K/cumm [facility] Monocyte abs 0.7 0.2 - 0.8 K/cumm [facility] Eosinophil abs 0.2 0.0 - 0.5 K/cumm [facility] Basophil abs 0.0 0.0 - 0.1 K/cumm [facility] Neutrophil pct 60.3 % [facility] Comment: Interpretive Data Percent cell count reference ranges are not reported, since discordance with absolute values may lead to misinterpretation of CBC data. Current Interpretive Data was last revised on 2017. Imm gran pct 0.6 % [facility] Comment: Interpretive Data Percent cell count reference ranges are not reported, since discordance with absolute values may lead to misinterpretation of CBC data. Current Interpretive Data was last revised on 2017. Lymphocyte pct 21.4 % [facility] Comment: Interpretive Data Percent cell count reference ranges are not reported, since discordance with absolute values may lead to misinterpretation of CBC data. Current Interpretive Data was last revised on 2017. Monocyte pct 13.7 % [facility] Comment: Interpretive Data Percent cell count reference ranges are not reported, since discordance with absolute values may lead to misinterpretation of CBC data. Current Interpretive Data was last revised on 2017. Eosinophil pct 3.2 % [facility] Comment: Interpretive Data Percent cell count reference ranges are not reported, since discordance with absolute values may lead to misinterpretation of CBC data. Current Interpretive Data was last revised on 2017. Basophil pct 0.8 % [facility] Comment: Interpretive Data Percent cell count reference ranges are not reported, since discordance with absolute values may lead to misinterpretation of CBC data. Current Interpretive Data was last revised on 2017. Blood 07/29/2024 11:0 1 AM PCAS 07/29/2024 11:34 AM PCAS Jossie King MD LAB BLOOD ORDERABL ES Final Result [facility] [place] [address] * PSA screen (07/29/2024 11:01 AM PCAS) PSA-Total 0.55 <=3.90 ng/mL Comment: Interpretive Data [...] revised 21. Blood 07/29/2024 11:0 1 AM PCAS 07/29/2024 11:33 AM PCAS Narrative ALESSANDRA [facility] - 07/29/2024 12:39 PM PCAS This lab is being obtained as part of a Kidney transplant evaluation, is time sensitive, and should only be drawn during the evaluation visit at [facility] Lab. Jossie King MD LAB BLOOD ORDERABL ES Final Result Performing Organization Address [facility] Co de Phone Number [facility] Department [place] [address] * (ABNORMAL) Iron profile w/ IBC (07/29/2024 11:01 AM PCAS) [facility] Iron 62 50 - 150 mcg/dL TIBC 208(L) 250 - 400 mcg/dL [facility] Transferrin saturation 30 20 - 50 % [facility] Blood 07/29/2024 11:0 1 AM PCAS 07/29/2024 11:33 AM PCAS Narrative [facility] - 07/29/2024 12:10 PM PCAS This lab is being obtained as part of a Kidney transplant evaluation, is time sensitive, and should only be drawn during the evaluation visit at [address] Lab[address] Jossie King MD LAB BLOOD ORDERABL ES Final Result Performing Organization Address [facility] de Phone Number [facility] Department [place] [address] * HIV 1/2 Antibody plus p24 Antigen Blood (07/29/2024 11:01 AM PCAS) [facility] HIV 1/2 ab + p24 ag Nonreactive Nonreactive Comment:Nonreactive for HIV- 1 antigen and HIV-1/HIV-2 antibodies. No laboratory evidence of HIV infection. If acute HIV infection is suspected, consider testing for HIV-1 RNA. Current interpretive data was last revised on 22. Blood 07/29/2024 11:0 1 AM PCAS 07/29/2024 11:32 AM PCAS Narrative [facility] - 07/29/2024 12:13 PM PCAS This lab is being obtained as part of a Kidney transplant evaluation, is time sensitive, and should only be drawn during the evaluation visit at [address] Lab. Jossie King MD LAB MICROBIOLOGY - GENERAL ORDERABLES Final Result Performing Organization Address [facility] Co de Phone Number [facility] Department [place] [address] * (ABNORMAL) CMV, IgG Blood (07/29/2024 11:01 AM PCAS) Pathologist [facility] CMV IgG Positive( [...] CMV infection. Blood 07/29/2024 11:0 1 AM PCAS 07/29/2024 11:33 AM PCAS Narrative AL[facility]ANDRA [facility] - 07/29/2024 1:44 PM PCAS This lab is being obtained as part of a Kidney transplant evaluation, is time sensitive, and should only be drawn during the evaluation visit at [facility] Lab. Jossie King MD LAB MICROBIOLOGY - GENERAL ORDERABLES Final Result [facility] [place] [address] * HLA Antibody Screen - SAB (Class I and Class II) (07/29/2024 11:01 AM PCAS) Pathologist [facility] Class I Treatment EDTA HISTOTRAC Class I [...] DR52 HISTOTRAC Blood 07/29/2024 11:0 1 AM PCAS 08/02/2024 9:46 AM PCAS Narrative HISTOTRAC - 08/02/2024 9:46 AM PCAS Single-antigen HLA antibody screen is performed on serum samples using a method developed and validated by the [facility] HLA laboratory based on an FDA-approved IVD kit (LABScreen Single-Antigen, [employer], [place], [place]). All patient serum samples are pretreated with EDTA before the screen to prevent complement interference. Additional serum treatments, such as adsorption and DTT treatment, may be performed as indicated. Interpretive comments: Low risk: MFI [id number]. Moderate risk: MFI 2404-9552. Increased risk: MFI >/= 5000. The presence [...] antigens to avoid. Testing performed at the [facility], [address] [place] [address], 5th floor, [facility], [place], [address]. IA # [id number]. Dorothy Meade, Ph.D., Toys Inspector, HLA Laboratory Rell Samuels M.D., Ph.D., Hospice Volunteer, HLA Laboratory Licha Nieto, Ph.D., CLIA Hospice Volunteer, [facility] Clinical [facility] Current methodology and interpretive comments last revised on 09/15/2022. Jossie King MD LAB BLOOD ORDERABL ES Final Result [facility]AREN * (ABNORMAL) CBC with auto differential (07/29/2024 11:01 AM PCAS) [facility] WBC 5.1 3.8 - 9.9 K/cumm Hgb 11.5(L) 13.0 - 17.5 g/dL [facility] Hct 34.4(L) 38.9 - 50.3 % [facility] Plt 208 150 - 400 K/cumm [facility] MPV 10.8 9.1 - 12.3 fL [facility] RBC 3.76(L) 4.30 - 5.80 M/cumm [facility] MCV 91.5 81.3 - 96.4 fL [facility] MCH 30.6 27.1 - 33.3 pg [facility] MCHC 33.4 32.3 - 35.7 g/dL [facility] RDW CV 14.3 11.1 - 14.9 % [facility] RDW SD 47.9 35.7 - 48.1 fL [facility] NRBC abs 0.00 0.00 - 0.01 K/cumm [facility] Blood 07/29/2024 11:0 1 AM PCAS 07/29/2024 11:34 AM PCAS Narrative [facility] - 07/29/2024 11:45 AM PCAS This lab is being obtained as part of a Kidney transplant evaluation, is time sensitive, and should only be drawn during the evaluation visit at [facility] Lab. Jossie King MD LAB BLOOD ORDERABL ES Final Result [facility] [place] [address] * Hepatitis C antibody Blood (07/29/2024 11:01 AM PCAS) [facility] Hep C Ab Nonreactive Nonreactive Comment:Antibodies to HCV no t detected. Does NOT exclude the possibility of recent exposure to HCV. Current interpretive data was last revised on 22 Blood 07/29/2024 11:0 1 AM PCAS 07/29/2024 11:32 AM PCAS Narrative [facility] - 07/29/2024 12:47 PM PCAS This lab is being obtained as part of a Kidney transplant evaluation, is time sensitive, and should only be drawn during the evaluation visit at [address] Lab. Jossie King MD LAB MICROBIOLOGY - GENERAL ORDERABLES Final Result Performing Organization Address [facility] Co de Phone Number [facility] Department [place] [address] * (ABNORMAL) Madiha-Morris virus (EBV) antibody panel Blood (07/29/2024 11:01 AM PCAS) EBV nuclear Ab Positive(A) Negative Comment:Indicates the presen ce of detectable IgG antibody to EBV Nuclear Antigen. EBV VCA IgG Positive(A) Negative [facility] Comment:Indicates the presen ce of antibody; 90% of the adult population will have been infected with EBV sometime in the past. EBV VCA IgM Negative Negative [facility] Comment:No detectable IgM an tibody to EBV-VCA. A negative result indicates no current infection with EBV. If clinical suspicion of acute EBV infection is present, testing should be repeated after one week. EBV interp Past Infection [facility] Blood 07/29/2024 11:0 1 AM PCAS 07/29/2024 11:33 AM PCAS Narrative [facility] - 07/29/2024 1:43 PM PCAS This lab is being obtained as part of a Kidney transplant evaluation, is time sensitive, and should only be drawn during the evaluation visit at [address] Lab. Jossie King MD LAB MICROBIOLOGY - GENERAL ORDERABLES Final Result Performing Organization Address City/[facility]/ZIP Co de Phone Number [facility] [place] [address] * Hepatitis B core antibody, total Blood (07/29/2024 11:01 AM PCAS) Hep B core IgG/IgM Nonreactive Nonreactive Blood 07/29/2024 11:0 1 AM PCAS 07/29/2024 11:32 AM PCAS Narrative [facility] - 07/29/2024 12:47 PM PCAS This lab is being obtained as part of a Kidney transplant evaluation, is time sensitive, and should only be drawn during the evaluation visit at [address] Jossie King MD LAB MICROBIOLOGY - GENERAL ORDERABLES Final Result Performing Organization Address City/[facility] Co de Phone Number [facility] [place] [address] * Protein, urine, random (07/29/2024 11:01 AM PCAS) Pathologist [facility] Protein, ur, quant 121.2 mg/dL Comment: Interpretive Data No reference range established. Current interpretive data was last revised 2019. Urine 07/29/2024 11:0 1 AM PCAS 07/29/2024 11:32 AM PCAS Narrative [facility] - 07/29/2024 12:18 PM PCAS This lab is being obtained as part of a Kidney transplant evaluation, is time sensitive, and should only be drawn during the evaluation visit at [address] Jossie King MD LAB URINE ORDERABL ES Final Result Performing Organization Address City/[facility]/ZIP Co de Phone Number [facility] [place] [address] * Creatinine, urine, random (07/29/2024 11:01 AM PCAS) Pathologist [facility] Creatinine Ur 167.1 mg/dL Comment: Interpretive Data No reference range established. Current interpretive data was last revised 2019. Urine 07/29/2024 11:0 1 AM PCAS 07/29/2024 11:32 AM PCAS Narrative [facility]ANDRA [facility] - 07/29/2024 12:18 PM PCAS This lab is being obtained as part of a Kidney transplant evaluation, is time sensitive, and should only be drawn during the evaluation visit at [address] Jossie King MD LAB URINE ORDERABL ES Final Result Performing Organization Address [facility] de Phone Number [place] [address] * HSV 2 IgG Antibody Blood (07/29/2024 11:01 AM PCAS) HSV 2 IgG Nonreactive Nonreactive Comment: Interpretive Data 1. Nonreactive: No detectable IgG antibody to HSV-2. 2. Equivocal: Presence or absence of detectable antibodies to HSV-2 cannot be determined and the test should be repeated. 3. Reactive: Indicates presence of detectable IgG antibody to HSV-2. Current interpretive data was last revised on 2022. Blood 07/29/2024 11:0 1 AM PCAS 07/29/2024 11:33 AM PCAS Narrative [facility] - 07/29/2024 1:44 PM PCAS This lab is being obtained as part of a Kidney transplant evaluation, is time sensitive, and should only be drawn during the evaluation visit at [address] Jossie King MD LAB MICROBIOLOGY - GENERAL ORDERABLES Final Result Performing Organization Address [facility] de Phone Number [facility] [place] [address] * (ABNORMAL) HSV 1 IgG Antibody Blood (07/29/2024 11:01 AM PCAS) HSV 1 IgG Reactive( A) Nonreactive Comment: Interpretive Data 1. Nonreactive: No detectable IgG antibody to HSV-1. 2. Equivocal: Presence or absence of detectable antibodies to HSV-1 cannot be determined and the test should be repeated. 3. Reactive: Indicates presence of detectable IgG antibody to HSV-1. Current interpretive data was last revised on 2016. Blood 07/29/2024 11:0 1 AM PCAS 07/29/2024 11:[address] [facility] 07/29/2024 1:44 PM PCAS This lab is being obtained as part of a Kidney transplant evaluation, is time sensitive, and should only be drawn during the evaluation visit at [address] Jossie King MD LAB MICROBIOLOGY - GENERAL ORDERABLES Final Result Performing Organization Address [facility] de Phone Number [facility] [address] * RPR Blood (07/29/2024 11:01 AM PCAS) Pathologist [facility] RPR Nonreactive Nonreactive Blood 07/29/2024 11:0 1 AM PCAS 07/29/2024 11:[address] [facility] 07/29/2024 12:34 PM PCAS This lab is being obtained as part of a Kidney transplant evaluation, is time sensitive, and should only be drawn during the evaluation visit at [address]. Jossie King MD LAB MICROBIOLOGY - GENERAL ORDERABLES Final Result Performing Organization Address [facility] de Phone Number [facility] [place] [address] * Hepatitis B surface antibody (immune status) Blood (07/29/2024 11:01 AM PCAS) HBsAb (immune status) Reactive Comment:This result is consi stent with immunity to Hepatitis B Virus when used in the setting of routine screening. Current interpretive data was last revised on 22 Blood 07/29/2024 11:0 1 AM PCAS 07/29/2024 11:[address] [facility] 07/29/2024 12:47 PM PCAS This lab is being obtained as part of a Kidney transplant evaluation, is time sensitive, and should only be drawn during the evaluation visit at [address]. Jossie King MD LAB MICROBIOLOGY - GENERAL ORDERABLES Final Result Performing Organization Address [facility] de Phone Number [facility] [place] [address] * Hepatitis B Surface Antigen Blood (07/29/2024 11:01 AM PCAS) Pathologist [facility] HepBsAg Nonreactive Nonreactive Blood 07/29/2024 11:0 1 AM PCAS 07/29/2024 11:32 AM PCAS Narrative [facility] - 07/29/2024 12:47 PM PCAS This lab is being obtained as part of a Kidney transplant evaluation, is time sensitive, and should only be drawn during the evaluation visit at [address] Jossie King MD LAB MICROBIOLOGY - GENERAL ORDERABLES Final Result Performing Organization Address [facility] de Phone Number [facility] [place] [address] * (ABNORMAL) aPTT (07/29/2024 11:01 AM PCAS) [facility] aPTT 61(H) 28 - 38 sec Comment: Interpretive Data Heparin therapeutic range: 66.0 - 100.0 seconds. Range based on correlation with therapeutic heparin activity range of 0.3 - 0.7 Units/mL. Current interpretive data was last revised on 2023. Blood 07/29/2024 11:0 1 AM PCAS 07/29/2024 11:32 AM PCAS Narrative AL[facility]DRA [facility] - 07/29/2024 11:42 AM PCAS This lab is being obtained as part of a Kidney transplant evaluation, is time sensitive, and should only be drawn during the evaluation visit at [address] Jossie King MD LAB BLOOD ORDERABL ES Final Result Performing Organization Address [facility] de Phone Number [facility] [place] [address] * (ABNORMAL) Protime-INR (07/29/2024 11:01 AM PCAS) PT 50.6(H) 9.7 - 13.0 sec INR 4.54(H) 0.90 - 1.20 [facility] Comment: Interpretive data Oral anticoagulant therapeutic ranges: Venous thromboembolism prophylaxis or treatment: 2.0-3.0 CARDIOLOGY Standard range: 2.0-3.0 High-intensity range: 2.5-3.5 Refer to indication-specific guidelines for appropriate target ranges for prosthetic heart valve replacement. Current interpretive data was last revised on 2019. Blood 07/29/2024 11:0 1 AM PCAS 07/29/2024 11:32 AM PCAS Narrative [facility] - 07/29/2024 11:42 AM PCAS This lab is being obtained as part of a Kidney transplant evaluation, is time sensitive, and should only be drawn during the evaluation visit at [address] Lab. Jossie King MD LAB BLOOD ORDERABL ES Final Result Performing Organization Address [facility] Co de Phone Number [facility] [place] [address] * Varicella Zoster IgG antibody Blood (07/29/2024 11:01 AM PCAS) Pathologist [facility] VZV IgG Reactive Reactive Comment:Reactive: Results diego ggest response to immunization or prior exposure to the virus. Blood 07/29/2024 11:0 1 AM PCAS 07/29/2024 11:[address] [facility] 07/29/2024 1:45 PM PCAS This lab is being obtained as part of a Kidney transplant evaluation, is time sensitive, and should only be drawn during the evaluation visit at [address] Lab[address] Jossie King MD LAB MICROBIOLOGY - GENERAL ORDERABLES Final Result Performing Organization Address City/[facility]/ZIP Co de Phone Number [facility] [place] [address] * (ABNORMAL) Uric acid (07/29/2024 11:01 AM PCAS) Pathologist [facility] Uric acid 2.0(L) 3.0 - 8.0 mg/dL Blood 07/29/2024 11:0 1 AM PCAS 07/29/2024 11:33 AM PCAS Narrative [facility] - 07/29/2024 12:10 PM PCAS This lab is being obtained as part of a Kidney transplant evaluation, is time sensitive, and should only be drawn during the evaluation visit at [address] Lab. Jossie King MD LAB BLOOD ORDERABL ES Final Result Performing Organization Address [facility] [place] [address] * (ABNORMAL) Phosphorus (07/29/2024 11:01 AM PCAS) [facility] Phosphorus, pl 5.1(H) 2.3 - 4.5 mg/dL Blood 07/29/2024 11:0 1 AM PCAS 07/29/2024 11:33 AM PCAS Narrative [facility] - 07/29/2024 12:10 PM PCAS This lab is being obtained as part of a Kidney transplant evaluation, is time sensitive, and should only be drawn during the evaluation visit at [address] Lab. Jossie King MD LAB BLOOD ORDERABL ES Final Result Performing Organization Address City/[facility]/ZIP Co de Phone Number [facility] [place] [address] * (ABNORMAL) PTH (07/29/2024 11:01 AM PCAS) [facility] PTH 444(H) 15 - 65 pg/mL Blood 07/29/2024 11:0 1 AM PCAS 07/29/2024 11:34 AM PCAS Narrative [facility] - 07/29/2024 12:02 PM PCAS This lab is being obtained as part of a Kidney transplant evaluation, is time sensitive, and should only be drawn during the evaluation visit at [address] Lab. Jossie King MD LAB BLOOD ORDERABL ES Final Result Performing Organization Address [facility] de Phone Number [facility] [place] [address] * (ABNORMAL) Hemoglobin A1c (07/29/2024 11:01 AM PCAS) Pathologist [facility] Hgb A1C 9.0(H) 4.0 - 5.6 % Estimated Average Glucose 212 mg/dL [facility] Comment: The ADA recommends reporting an estimated Average Glucose (eAG) with all Hemoglobin A1c results using the equation derived from a study of 507 normal and diabetic adults. Minority populations were underrepresented and children were not included. (Diabetes Care 2020; 43(S1): S66-S76). The eAG is not equivalent to a fasting glucose. Blood 07/29/2024 11:0 1 AM PCAS 07/29/2024 11:34 AM PCAS Narrative [facility] - 07/29/2024 11:53 AM PCAS This lab is being obtained as part of a Kidney transplant evaluation, is time sensitive, and should only be drawn during the evaluation visit at [address] Jossie King MD LAB BLOOD ORDERABL ES Final Result Performing Organization Address [facility] Co de Phone Number [facility] [place] [address] * Gamma GT (07/29/2024 11:01 AM PCAS) Pathologist [facility] GGT 22 10 - 50 Units/L Blood 07/29/2024 11:0 1 AM PCAS 07/29/2024 11:33 AM PCAS Narrative [facility] - 07/29/2024 12:40 PM PCAS This lab is being obtained as part of a Kidney transplant evaluation, is time sensitive, and should only be drawn during the evaluation visit at [address] Jossie King MD LAB BLOOD ORDERABL ES Final Result Performing Organization Address [facility] [place] [address] * (ABNORMAL) Ferritin (07/29/2024 11:01 AM PCAS) Ferritin 761(H) 30 - 400 ng/mL Blood 07/29/2024 11:0 1 AM PCAS 07/29/2024 11:33 AM PCAS Narrative [facility] - 07/29/2024 12:10 PM PCAS This lab is being obtained as part of a Kidney transplant evaluation, is time sensitive, and should only be drawn during the evaluation visit at [address] Jossie King MD LAB BLOOD ORDERABL ES Final Result Performing Organization Address [facility] [place] [address] * (ABNORMAL) Lipid panel (07/29/2024 11:01 AM PCAS) Cholesterol 114 30 - 199 mg/dL Comment: [...] revised on 2018. Triglycerides 66 <=149 mg/dL [facility] Comment: Interpretive Data Ages < [...] revised on 2018. HDL 29(L) >=40 mg/dL [facility] Comment: Interpretive Data Ages < [...] on 2018. LDL, calculated 71 <=129 mg/dL [facility] Comment: Interpretive Data Ages < [...] NCEP Expert Panel. Circulation 2004;110:227 3. Jose Brown. TYRONE Cardiol. 2019December 19;5(5):540-548. doi: 10.1001/[email or web address].2020.0013 Current Interpretive Data was last revised on 2024. Non-HDL Cholesterol 85 mg/dL [facility] Comment: Interpretive Data Ages < or = [...] last revised on 2018. Chol/HDL ratio 4 [facility] Blood 07/29/2024 11:0 1 AM PCAS 07/29/2024 11:33 AM PCAS Narrative [facility] - 07/29/2024 12:10 PM PCAS This lab is being obtained as part of a Kidney transplant evaluation, is time sensitive, and should only be drawn during the evaluation visit at [facility] Lab. Jossie King MD LAB BLOOD ORDERABL ES Final Result [facility] Department of [place] [address] * (ABNORMAL) Comprehensive metabolic panel (07/29/2024 11:01 AM PCAS) Sodium 136 135 - 145 mmol/L Potassium, pl 4.6 3.3 - 4.9 mmol/L [facility] Chloride 93(L) 97 - 110 mmol/L [facility] CO2 26 22 - 32 mmol/L [facility] Anion gap 17(H) 2 - 15 mmol/L [facility] BUN 65(H) 6 - 25 mg/dL [facility] Creatinine 8.07(H) 0.80 - 1.30 mg/dL [facility] Glucose 280(H) 70 - 199 mg/dL [facility] Comment: Interpretive Data Fasting glucose [...] 2022. Calcium 9.4 8.5 - 10.3 mg/dL [facility] Bilirubin, total 0.3 0.1 - 1.2 mg/dL [facility] Protein, pl 7.2 6.5 - 8.5 g/dL [facility] Albumin 3.8 3.5 - 5.0 g/dL [facility] Alk phos 99 40 - 130 Units/L [facility] ALT 30 7 - 55 Units/L [facility] AST 31 10 - 50 Units/L [facility] Blood 07/29/2024 11:0 1 AM [facility] 07/29/2024 11:33 AM [facility] Narrative [facility] - 07/29/2024 12:10 PM [facility] This lab is being obtained as part of a Kidney transplant evaluation, is time sensitive, and should only be drawn during the evaluation visit at [facility] Lab. us Jossie King MD LAB BLOOD ORDERABL ES Final Result [facility] Department [place] [address] * (ABNORMAL) Oxalate (oxalic acid) (07/29/2024 10:53 AM [facility]) [facility] Oxalate 12.3(H) <=2.0 mcmol/L [place] [facility] Comment: High value suggestive of Primary Hyperoxaluria. However, if the patient has chronic kidney disease (GFR<30 mL/min/1.73m2), plasma oxalate values up to 30 mcmol/L can be normal. The [facility] Hyperoxaluria [facility] is available to review case details and answer any questions regarding interpretation ([email or web address]; [phone]) ADDITIONAL INFORMATION This test has been modified from the resource specialist teacher's instructions. Its performance characteristics were determined by [facility] in a manner consistent with CLIA requirements. This test has not been cleared or approved by the U.S. Food and Drug Administration. Test Performed by: [facility] - [address] [address] [employer] Consultant: Jairo Higgins Ph.D.; CLIA# [id number] Blood 07/29/2024 10:5 3 AM [facility] 07/29/2024 11:37 AM [facility]AS us Jossie King MD LAB BLOOD ORDERABL ES Final Result [facility] [place] [address] [place] [facility] * (ABNORMAL) Urinalysis reflex to microscopic (07/29/2024 10:53 AM [facility]) Color, ur Yellow Yellow Clarity, ur Cloudy(A) Clear [facility] Specific gravity, ur 1.022 1.003 - 1.030 [facility] pH, urine 6.0 [facility] Comment: Interpretive Data U rine pH is affected by diet, medications, systemic acid-base disturbances, and renal tubular function. pH may affect urinary stone formation. For example, urine pH below 6.0 may help reduce the tendency for calcium phosphate stones and pH greater than 6.0 may reduce the tendency for uric acid stone formation. Source: [facility] Current Interpretive Data was last revised on 2017 Protein, ur ql 2+(A) Negative [facility] Glucose, ur ql 4+(A) Negative [facility] Ketones, ur Negative Negative [facility] Bilirubin, ur Negative Negative [facility] Blood, ur 3+(A) Negative [facility] Urobilinogen, ur <2.0 <2.0 mg/dL [facility] Nitrite, ur Negative Negative [facility] Leukocyte esterase, ur 2+(A) Negative [facility] UA reflex comment Reflex to microscopic UA will be performed. [facility] Urine 07/29/2024 10:5 3 AM [facility] 07/29/2024 11:27 AM [facility] Narrative [facility] - 07/29/2024 11:29 AM [facility] This lab is being obtained as part of a Kidney transplant evaluation, is time sensitive, and should only be drawn during the evaluation visit at [facility] Lab. Jossie King MD LAB URINE ORDERABL ES Final Result Performing Organization Address [facility] de Phone Number [facility] [place] [address] * (ABNORMAL) Urinalysis, microscopic only (07/29/2024 10:53 AM [facility]) WBC, ur 21-50(A) 0 - 5 /HPF RBC, ur >50(A) 0 - 2 /HPF [facility] Epithelial cells, squamous, ur 1-5 0 - 5 /HPF [facility] Bacteria, ur Trace(A) [facility] Mucous, ur Present(A) [facility] Hyaline casts, ur 1-5 0 - 10 /LPF [facility] Urine 07/29/2024 10:5 3 AM [facility] 07/29/2024 11:27 AM [facility] Jossie King MD LAB URINE ORDERABL ES Final Result Performing Organization Address [facility] de Phone Number [facility] [place] [address] * (ABNORMAL) TSH (10/27/2023 2:30 AM [facility]) Thyroid Stimulating Hormone 13.20(H) 0.30 - 4.20 mcIUnit/mL Blood 10/27/2023 2:30 AM [facility] 10/27/2023 2:42 AM [facility] Lorne Mcnulty MD LAB BLOOD ORDERABLES Final Result [facility] [address] [place] [address] from Last 3 Months or Most Recently Relevant to Health Maintenance Insurance [employer] MED[employer]ARE SOLUTIONS TRANSPLANT [employer] MED[employer]ARE RISK IDPA TRANSPLANT [employer] RISK IDPA Advance Directives For more information, please contact: [phone] * Full Code (Latest Code Status on File) Date Activated Date Inactivated Comments 10/13/2023 11:32 PM 11/03/2023 11:42 PM * Full Code Date Activated Date Inactivated Comments 06/05/2022 6:17 AM 06/29/2022 6:20 PM * Full Code Date Activated Date Inactivated Comments 06/05/2022 4:43 AM 06/05/2022 4:43 AM * Full Code Date Activated Date Inactivated Comments 06/04/2022 9:55 PM 06/05/2022 4:43 AM Care Teams Cattle Tester Relationship Specialty Start Date End Date Aditya Castro MD [address] [facility] [place] [address] PCP - General 10/17/19 Alondra Lambert, RN [address] [facility] [address] [place] [id number] [employer] 03/06/24 Hamlet Ortega Jr., MD [facility] [place] [address] Consulting Physician Cardiovascular Disease 05/10/24 Leandro Reyes MD [address] [place] [id number] Consulting Physician Nephrology 07/30/24
--- OUTSIDE RECORDS SUMMARY | 2024-10-24 17:55 | XMS_ITS | Encounter Summary ---
Author Organization [facility] Address [address] [place] [address] Care Team Providers Care Manager Of Maintenance Name Role Phone Matthew Aditya Ellison Primary Care Provider Unavailab le Reason for Visit * Reason Onset Date Comments Med Question 06/25/2019 Encounter Details Date Type Department Care Team (Late st Contact Info) Description 06/25/2019 Telephone [facility] [address] [place] [address] Finn Kramer MD [address] [place] [address] Med Question Social History Tobacco Use Types [...] pt he is asking that we call [facility] at [phone] and talk to them about the compression stockings. I called and spoke with Kashif at [facility] and gave clarification the the mmHg I let them know that they should Be the 20-30mmHg . He understood and will get them ready for pt. Anali Connelly [employer]SEM[employer]ER * Telephone Encounter - Theodore Huerta - 06/25/2019 10:40 AM CST Pt called saying patient pharmacy just needs clarification of a number on the prescription for compression socks. Please Advise. [employer]SEMBL[employer] documented in this encounter Plan of Treatment Not on file documented as of this encounter Visit Diagnoses Not on filedocumented in this encounter Care Teams Manager Of Maintenance Relationship Specialty Start Date End Date Aditya Castro Update Information PCP - General 03/06/19 documented as of this encounter
--- OUTSIDE RECORDS SUMMARY | 2024-10-24 17:55 | XMS_ITS | Data Portability ---
Author Organization [facility] [email or web address], Main Office Address [address] [place] [address] Care Team Providers Care Desk Clerk Name Role Phone ADITYA CASTRO Primary Care [...] per schedule. Cont f/u with Endo at [place] as per schedule. Cont f/u with Spine as per schedule. Cont f/u with Rheumat at [facility] as per schedule. Cont f/u with Surg as per schedule. Cont f/u with Cardio at [facility] as per schedule. Cont f/u with Nephro at [facility] as per schedule. Cont f/u with Hemat at [place] as per schedule. Cont f/u with [employer] [facility] as per schedule. Cont f/u with Ophtho at as per schedule. Cont f/u with Derm at [facility] as per schedule. Cont f/u with Dr. Langley (Hand surgeon) at as per schedule. Educated pt about alarming symptoms to monitor at home and call us back or get checked in ED. 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 So pt can not take any Allopurinol [...] in 3-4 months. Annual labs in 05/15. [email or web address] Not available 05/21/2024 16:19:00 06/21/2024 06/21/2024 The [...] per schedule. Cont f/u with Endo at [place] as per schedule. Cont f/u with Spine as per schedule. Cont f/u with Rheumat at [facility] as per schedule. Cont f/u with Surg as per schedule. Cont f/u with Cardio at [facility] as per schedule. Cont f/u with Nephro at [facility] as per schedule. Cont f/u with Hemat at [place] as per schedule. Cont f/u with [employer] [facility] as per schedule. Cont f/u with Ophtho at as per schedule. Cont f/u with Derm at [facility] as per schedule. Cont f/u with Dr. Langley (Hand surgeon) at as per schedule. Educated pt about alarming symptoms to monitor at home and call us back or get checked in ED. 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 So pt can not take any Allopurinol [...] months as before. Annual labs in 05/15. [email or web address] Not available 07/15/2024 12:11:51 08/27/2024 08/27/2024 54 [...] per schedule. Cont f/u with Endo at [place] as per schedule. Cont f/u with Spine as per schedule. Cont f/u with Rheumat at [facility] as per schedule. Cont f/u with Surg as per schedule. Cont f/u with Cardio at [facility] as per schedule. Cont f/u with Nephro at [facility] as per schedule. Cont f/u with Hemat at [place] as per schedule. Cont f/u with [employer] [facility] as per schedule. Cont f/u with Ophtho at as per schedule. Cont f/u with Derm at [facility] as per schedule. Cont f/u with Dr. Langley (Hand surgeon) at as per schedule. Educated pt about alarming symptoms to monitor at home and call us back or get checked in ED. 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 So pt can not take any Allopurinol [...] months. Annual labs in 05/15. Not available 08/27/2024 15:22:37 Plan of Treatment Reminders Order Date Submit Date Provider Last Modified By Organization Details Last Modified Time Details Appointments Follow Up 15 2024 10:00A Lisa Castro MD Not available Not available Not available Lab None dolorese d. Referral pain managem ent referra l - Please call patient to lora cantu appoint ment. Thank you. 2024 025 [email or web address] [facility], [address], [place], [address], 09/25/2024 08:49:04 general surgeon referra l - Please call patient to lora cantu appoint ment. Thank you. 2023 024 [email or web address] Everton Hooker MD, [address], [place], [address], 08/12/2024 08:54:[address] st referra l - Please contact patient to lora larose 2023 024 [email or web address] [facility], [address], [place], [address], 05/21/2024 15:57:09 Procedures injecti on/aspi ration joint/b ursa (PROC) 2023 024 [email or web address] In-Office Order, Internal Use Only DO Not Attach Compendium DO Not Attach Compendium, Do Not Delete/merge, [id number] 06/21/2024 11:43:13 injecti on/aspi ration joint/b ursa (PROC) 2023 024 [email or web address] In-Office Order, Internal Use Only DO Not Attach Compendium DO Not Attach Compendium, Do Not Delete/merge, [id number] 05/10/2024 11:45:25 Surgeries None recorde d. Imaging XR, hip + pelvis, unilate ral 2023 024 [email or web address] [facility] [place], [address], [place], [address], 06/21/2024 12:02:32 XR, knee 2023 024 [email or web address] [facility] [place], [address], [place], [address], 05/10/2024 13:41:55 Medication Orders colchic ine 0.[address] [facility] #75750, [address], [place], [id number], 08/27/2024 14:33:42 Uloric 40 mg tablet [address] [facility] #39961, [address], [place], [id number], 08/27/2024 15:24:16 Vascepa 1 gram capsule [address] [facility] #04283, [address], [place], [id number], 08/27/2024 15:24:17 tamsulo sin 0.4 mg capsule [address] [facility] #23749, [address], [place], [id number], 08/27/2024 14:30:45 ondanse ness HCl 4 mg tablet [address] [facility] #95357, [address] [facility], [place], [place], [id number], 08/27/2024 14:31:17 ezetimi be 10 mg tablet [address] [facility] #29179, [address] [facility], [place], [place], [id number], 08/27/2024 15:24:17 gemfibr ozil 600 mg tablet [address] [facility] #75652, [address] [facility], [place], [place], [id number], 08/27/2024 15:24:15 famotid ine 40 mg tablet [address] [facility] #04780, [address] [facility], [place], [place], [id number], 08/27/2024 14:33:43 tamsulo sin 0.4 mg capsule 2023 024 [email or web address] [facility] #43762, [address] [facility], [place], [place], [id number], 07/15/2024 12:10:41 ketorol ac 10 mg tablet 2023 024 [email or web address] [facility] #87554, [address] [facility], [place], [place], [id number], 08/27/2024 15:23:27 oxycodo ne 5 mg tablet 2023 024 [email or web address] [facility] #94035, [address], [place], [id number], 08/27/2024 15:23:49 ondanse ness HCl 4 mg tablet 2023 [email or web address] [facility] #11776, [address] [facility], [place], [place], [id number], 07/15/2024 12:10:41 bupivac will HCl 0.5 % (5 mg/mL) injecti on solutio n 2023 [email or web address] [facility] #35321, [address] [facility], [place], [place], [id number], 06/21/2024 11:52:35 Kenalog 10 mg/mL suspens ion for injecti on 2023 [facility]-[id number] 15 [facility] #34695, [address] [facility], [place], [place], [id number], 07/12/2024 21:17:10 Linzess [address] [facility] #39798, [address] [facility], [place], [place], [id number], 05/21/2024 16:08:05 Uloric [address] [facility] #33516, [address] [facility], [place], [place], [id number], 05/21/2024 16:19:35 Vascepa [address] [facility] #28786, [address], [place], [id number], 05/21/2024 16:08:06 atorvas tatin [address] [facility] #56787, [address] [facility], [place], [place], [id number], 05/21/2024 16:08:06 ezetimi be [address] [facility] #50032, [address] [facility], [place], [place], [id number], 05/21/2024 16:08:09 gemfibr ozil [address] [facility] #87373, [address] [facility], [place], [place], [id number], 05/21/2024 16:08:08 ergocal ciferol (vitami n D2) 1,250 mcg (50,000 unit) capsule 2023 [facility] #34828, [address], [place], [id number], 05/21/2024 16:08:05 bupivac will HCl 0.5 % (5 mg/mL) injecti on solutio n 2023 024 [email or web address] [facility] #58693, [address], [place], [id number], 05/10/2024 12:52:07 Kenalog 10 mg/mL suspens ion for injecti on 2023 024 [id number] [facility] #82377, [address], [place], [id number], 07/12/2024 21:17:10 prednis one 10 mg tablets in a dose pack 2023 024 [email or web address] [facility] #12857, [address], [place], [id number], 07/15/2024 11:30:05 Patient TargetsNo targets recorded. Patient Instructions Encounter Date Encounter Id Patient Instructions Last Modified By Organization Details Last Modified Time 05/21/2024 [id number] starting a weigh t loss plan: care instructions [email or web address] Not available 05/21/2024 16:20:00 07/15/2024 [id number] starting a weigh t loss plan: care instructions [email or web address] Not available 07/15/2024 12:10:41 08/27/2024 [id number] starting a weigh t loss plan: care instructions [email or web address] Not available 08/27/2024 14:30:39 Reason for Referral Physical Therapist Referral for Bilateral osteoarthritis of knees Please contact patient to schedule Referring Physician: Gucci Brown, Orthopedic Surgery, Encounter Date: 05/10/2024 General Surgeon Referral for Gallstone RUQ pain, gallstones ++ Please call patient to schedule an appointment. Thank you. Referring Physician: Aditya Castro [facility], Encounter Date: 07/15/2024 Pain Management Referral for Chronic back pain Please call patient to schedule an appointment. Thank you. Referring Physician: Aditya Castro [facility], Encounter Date: 08/27/2024 Results Created Date Observation Date Name Description Value Unit Range Abnormal Flag Note LastModifiedBy Organization Detail LastModifiedTime 05/07/2005/07/2024 MICRO ALBUM IN RANDO M URINE microalbumin , urine 785.1 mg/L 0.0-16 .6 high Not Available [facility] (Lab) [address] [place], [address], 05/07/2024 14:51:53 05/07/2005/07/2024 CBC/C OMPLE TE BLD COUNT W/DIF F white blood cells 5.1 x10'3 /uL 4.2-10 .8 Not Available [facility] (Lab) [address] [place], [address], 05/07/2024 14:52:26 05/07/20 24 05/07/2024 CBC/C OMPLE TE BLD COUNT W/DIF F red blood cells 3.54 x10'6 /uL 4.10-5 .80 low Not Available [facility] (Lab) [address] [place], [address], 05/07/2024 14:52:26 05/07/20 24 05/07/2024 CBC/C OMPLE TE BLD COUNT W/DIF F hemoglobin 10.7 g/dL 13.2-1 7.0 low Not Available [facility] (Lab) [address] [place], [address], 05/07/2024 14:52:26 05/07/20 24 05/07/2024 CBC/C OMPLE TE BLD COUNT W/DIF F hematocrit 31.9 % 39.3-5 0.0 low Not Available [facility] (Lab) [address] [place], [address], 05/07/2024 14:52:26 05/07/20 24 05/07/2024 CBC/C OMPLE TE BLD COUNT W/DIF F mean red cell volume 90.1 fL 80.0-9 7.0 Not Available [facility] (Lab) [address] [place], [address], 05/07/2024 14:52:26 05/07/20 24 05/07/2024 CBC/C OMPLE TE BLD COUNT W/DIF F mean red cell hemoglobin 30.2 pg 27.0-3 3.0 Not Available [facility] (Lab) [address] [place], [address], 05/07/2024 14:52:26 05/07/20 24 05/07/2024 CBC/C OMPLE TE BLD COUNT W/DIF F mean RBC HGB concentratio n 33.5 g/dL 31.0-3 6.0 Not Available [facility] (Lab) [address] [place], [address], 05/07/2024 14:52:26 05/07/20 24 05/07/2024 CBC/C OMPLE TE BLD COUNT W/DIF F red cell distribution width 14.6 % 11.8-1 5.5 Not Available [facility] (Lab) [address] [place], [address], 05/07/2024 14:52:26 05/07/20 24 05/07/2024 CBC/C OMPLE TE BLD COUNT W/DIF F platelets 216 x10'3 /uL 150-40 0 Not Available [facility] (Lab) [address] [place], [address], 05/07/2024 14:52:26 05/07/20 24 05/07/2024 CBC/C OMPLE TE BLD COUNT W/DIF F mean platelet volume 11.2 fL 9.0-12 .4 Not Available [facility] (Lab) [address] [place], [address], 05/07/2024 14:52:26 05/07/20 24 05/07/2024 CBC/C OMPLE TE BLD COUNT W/DIF F neutrophils 44.1 % 39.0-7 2.0 Not Available [facility] (Lab) [address] [place], [address], 05/07/2024 14:52:26 05/07/20 24 05/07/2024 CBC/C OMPLE TE BLD COUNT W/DIF F lymphocytes 33.3 % 16.0-4 7.0 Not Available [facility] (Lab) [address] [place], [address], 05/07/2024 14:52:26 05/07/20 24 05/07/2024 CBC/C OMPLE TE BLD COUNT W/DIF F monocytes 14.3 % 5.0-12 .0 high Not Available [facility] (Lab) [address] [place], [address], 05/07/2024 14:52:26 05/07/20 24 05/07/2024 CBC/C OMPLE TE BLD COUNT W/DIF F eosinophils 7.5 % 1.0-7. 0 high Not Available [facility] (Lab) [address] [place], [address], 05/07/2024 14:52:26 05/07/20 24 05/07/2024 CBC/C OMPLE TE BLD COUNT W/DIF F basophils 0.6 % 0.0-2. 0 Not Available [facility] (Lab) [address] [place], [address], 05/07/2024 14:52:26 05/07/20 24 05/07/2024 CBC/C OMPLE TE BLD COUNT W/DIF F immature granulocytes 0.2 % 0.00-0 .50 Not Available [facility] (Lab) [address] [place], [address], 05/07/2024 14:52:26 05/07/20 24 05/07/2024 CBC/C OMPLE TE BLD COUNT W/DIF F neutrophils, absolute count 2.23 x10'3 /uL 1.5-8. 0 Not Available [facility] (Lab) [address] [place], [address], 05/07/2024 14:52:26 05/07/20 24 05/07/2024 CBC/C OMPLE TE BLD COUNT W/DIF F lymphocytes, absolute count 1.68 x10'3 /uL 1.07-3 .43 Not Available [facility] (Lab) [address] [place], [address], 05/07/2024 14:52:26 05/07/20 24 05/07/2024 CBC/C OMPLE TE BLD COUNT W/DIF F monocytes, absolute count 0.72 x10'3 /uL 0.29-0 .99 Not Available [facility] (Lab) [address] [place], [address], 05/07/2024 14:52:26 09/17/05/07/2024 CBC/C OMPLE TE BLD COUNT W/DIF F eosinophils, absolute count 0.38 x10'3 /uL 0.02-0 .53 Not Available [facility] (Lab) [address] [place], [address], 05/07/2024 14:52:26 05/07/20 24 05/07/2024 CBC/C OMPLE TE BLD COUNT W/DIF F basophils, absolute count 0.03 x10'3 /uL 0.01-0 .08 Not Available [facility] (Lab) [address] [place], [address], 05/07/2024 14:52:26 05/07/20 24 05/07/2024 CBC/C OMPLE TE BLD COUNT W/DIF F immature granulocytes ,absolute 0.01 x10'3 /uL 0.00-0 .05 Not Available [facility] (Lab) [address] [place], [address], 05/07/2024 14:52:26 05/07/20 24 05/07/2024 CBC/C OMPLE TE BLD COUNT W/DIF F nucleated red blood cells 0.0 % -0 Not Available [facility] (Lab) [address] [place], [address], 05/07/2024 14:52:26 05/07/20 24 05/07/2024 CBC/C OMPLE TE BLD COUNT W/DIF F NRBC# 0.00 x10'3 /uL Not Available [facility] (Lab) [address] [place], [address], 05/07/2024 14:52:26 05/07/20 24 05/07/2024 VITAM IN D 25-HY DROXY [id number] 25.2 NG/mL 30-100 low Vitam in D Statu s: Defic ient: <20 ng/mL Insuf ficie nt: 20-29 ng/mL Suffi cient : 30-10 0 ng/mL Not Available [facility] (Lab) [address] [place], [address], 05/07/2024 16:09:08 05/07/20 24 05/07/2024 TSH W/REF JOSE FT4 TSH with reflex free T4 1.430 uIU/m L 0.465- 4.680 Not Available [facility] (Lab) [address] [place], [address], 05/07/2024 16:20:16 05/07/20 24 05/07/2024 PSA SCREE N PSA medicare screen 0.71 NG/mL 0.00-4 .00 Not Available [facility] (Lab) [address] [place], [address], 05/07/2024 16:20:17 05/07/20 24 05/07/2024 URIC ACID SERUM uric acid 6.7 mg/dL 3.5-8. 5 Not Available [facility] (Lab) [address] [place], [address], 05/07/2024 16:36:28 05/07/20 24 05/07/2024 COMPR EHENS CARA METAB OLIC PANEL sodium 134 mmol/ L 137-14 5 low Not Available [facility] (Lab) [address] [place], [address], 05/07/2024 16:36:34 05/07/20 24 05/07/2024 COMPR EHENS CARA METAB OLIC PANEL potassium 3.7 mmol/ L 3.5-5. 1 Not Available [facility] (Lab) [address] [place], [address], 05/07/2024 16:36:34 05/07/20 24 05/07/2024 COMPR EHENS CARA METAB OLIC PANEL chloride 96 mmol/ L 98-107 low Not Available [facility] (Lab) [address] [place], [address], 05/07/2024 16:36:34 05/07/20 24 05/07/2024 COMPR EHENS CARA METAB OLIC PANEL carbon dioxide 29 mmol/ L 22-30 Not Available [facility] (Lab) [address] [place], [address], 05/07/2024 16:36:34 05/07/20 24 05/07/2024 COMPR EHENS CARA METAB OLIC PANEL anion gap 12.7 mmol/ L 14-22 low Not Available [facility] (Lab) [address] [place], [address], 05/07/2024 16:36:34 05/07/20 24 05/07/2024 COMPR EHENS CARA METAB OLIC PANEL glucose 316 mg/dL 70-99 high Not Available [facility] (Lab) [address] [place], [address], 05/07/2024 16:36:34 05/07/20 24 05/07/2024 COMPR EHENS CARA METAB OLIC PANEL BUN 63 mg/dL 8-19 high Not Available [facility] (Lab) [address] [place], [address], 05/07/2024 16:36:34 05/07/20 24 05/07/2024 COMPR EHENS CARA METAB OLIC PANEL creatinine 6.80 mg/dL 0.66-1 .25 high Not Available [facility] (Lab) [address] [place], [address], 05/07/2024 16:36:34 05/07/20 24 05/07/2024 COMPR EHENS CARA METAB OLIC PANEL GFR 8 Refer ence Range : [place] GFR Healt hy Adult : >60 [...] or ethni c subgr oups, such as Hislesly nics. Outsi de the valid ated aster [...] is avail able on the [facility] websi te: https :[email or web address] stephen.o rg/pr ofess ional s/kdo qi/gf r_cal culat or Not Available [facility] (Lab) [address] [place], [address], 05/07/2024 16:36:34 05/07/20 24 05/07/2024 COMPR EHENS CARA METAB OLIC PANEL alkaline phosphatase 96 U/L 38-126 Not Available [facility] (Lab) [address] [place], [address], 05/07/2024 16:36:34 05/07/20 24 05/07/2024 COMPR EHENS CARA METAB OLIC PANEL alanine aminotransfe rase 27 U/L 0-50 Not Available [facility] (Lab) [address] [place], [address], 05/07/2024 16:36:34 05/07/20 24 05/07/2024 COMPR EHENS CARA METAB OLIC PANEL aspartate aminotransfe rase 38 U/L 15-46 Not Available [facility] (Lab) [address] [place], [address], 05/07/2024 16:36:34 05/07/20 24 05/07/2024 COMPR EHENS CARA METAB OLIC PANEL bilirubin, total 0.60 mg/dL 0.20-1 .30 Not Available [facility] (Lab) [address] [place], [address], 05/07/2024 16:36:34 05/07/20 24 05/07/2024 COMPR EHENS CARA METAB OLIC PANEL calcium 9.4 mg/dL 8.4-10 .2 Not Available [facility] (Lab) [address] [place], [address], 05/07/2024 16:36:34 05/07/20 24 05/07/2024 COMPR EHENS CARA METAB OLIC PANEL total protein 7.1 g/dL 6.3-8. 2 Not Available [facility] (Lab) [address] [place], [address], 05/07/2024 16:36:34 05/07/20 24 05/07/2024 COMPR EHENS CARA METAB OLIC PANEL albumin 4.0 g/dL 3.4-5. 0 Not Available [facility] (Lab) [address] [place], [address], 05/07/2024 16:36:34 05/07/20 24 05/07/2024 COMPR EHENS CARA METAB OLIC PANEL globulin 3.1 g/dL 2.6-4. 2 Not Available [facility] (Lab) [address] [place], [address], 05/07/2024 16:36:34 05/07/20 24 05/07/2024 COMPR EHENS CARA METAB OLIC PANEL A/G ratio 1.3 ratio 1.0-2. 0 Not Available [facility] (Lab) [address] [place], [address], 05/07/2024 16:36:34 05/07/20 24 05/07/2024 LIPID PANEL cholesterol 144 mg/dL 140-19 9 NIH MARIELLE NSUS RECOM MENDA TION FOR DALIA STERO L: ADULT CHILD LOW RISK: <200 <170 BORDE RLINE : <200- 239 ----- HIGH RISK: >240 >200 Not Available [facility] (Lab) [address] [place], [address], 05/07/2024 16:36:39 05/07/20 24 05/07/2024 LIPID PANEL triglyceride s 146 mg/dL 0-150 NIH MARIELLE NSUS REPOR T RECOM MENDA TION FOR TRIGL YCERI MARIELLA: ADULT CHILD LOW RISK: <150 ----- BODER LINE: 150-1 99 ----- HIGH RISK: >200 ----- Not Available [facility] (Lab) [address] [place], [address], 05/07/2024 16:36:39 05/07/20 24 05/07/2024 LIPID PANEL HDL cholesterol 29 mg/dL 40- low Not Available [facility] (Lab) [address] [place], [address], 05/07/2024 16:36:39 05/07/20 24 05/07/2024 LIPID PANEL [...] WILL NOT BE REPOR MARCELO. Not Available [facility] (Lab) [address] [place], [address], 05/07/2024 16:36:39 05/07/20 24 05/07/2024 MAGNE SIUM magnesium 2.3 mg/dL 1.6-2. 3 Not Available [facility] (Lab) [address] [place], [address], 05/07/2024 16:36:42 05/07/20 24 05/07/2024 VITAM IN B12 (SOFIA AUSTIN ) vb12 626 pg/mL 239-93 1 Not Available [facility] (Lab) [address] [place], [address], 05/07/2024 16:57:46 05/07/20 24 05/07/2024 FOLAT E, SERUM /PLAS MA folate 12.7 NG/mL 2.76-2 0.0 Not Available [facility] (Lab) [address] [place], [address], 05/07/2024 16:57:48 05/07/20 24 05/10/2024 HA1C, SEND- OUT TO [facility] RP hemoglobin A1C 9.9 % 4.8-5. 6 high . . Predi abete s: 5.7 - 6.4 Diabe canelo: >6.4 Glyce karthikeyan contr ol for adult s with diabe canelo: <7.0 Perfo rmed at: - [facility] [address] [facility], [place] [address] Lab Direc tor: Kevin portillo PhD, Phone : [phone] Not Available [facility] (Lab) [address] [place], [address], 05/10/2024 07:14:44 05/02/20 24 scapu la, right [facility] [address] [place] [address] Patien t Name: JUVENAL GARCIA Access ion #: [id number] Sex: M : 1969 3 Dictat ed By: Yady Ma Attend ing Physic britton: EVONNE CASTRO [facility] Physic britton: EVONNE CASTRO Exam Date: [...] at 2023 12:08: 46 PM Page 1 [email or web address] [facility] (Imaging) [address] [place], [address], 05/07/2024 09:12:00 05/02/20 24 XR, thora cic spine , 3 view [facility] [address] [place] [address] Patien t Name: JUVENAL GARCIA Access ion #: [id number] Sex: M : 1969 3 Dictat ed By: Vahe Arana Attend ing Physic britton: EVONNE CASTRO [facility] Physic britton: EVONNE CASTRO Exam Date: 2023 11:57 AM Exam Name: XR T SPINE 3V Admitt ing Diagno sis(es ): ACCESS ION #: [id number] INDICA TION: pain COMPAR ADAM: None [...] at 2023 12:35: 42 PM Page [email or web address] (Imaging) [address], [place], [address], 05/07/2024 09:12:00 05/10/20 24 XR, knee No observ ation record ed. [email or web address] [facility] [place] [address] [facility] [address], [place], [address], 05/10/2024 13:41:54 06/21/20 24 XR, hip + pelvi s, unila teral No observ ation record ed. [email or web address] [facility] [place] [address] [facility] [address], [place], [address], 06/21/2024 12:02:31 07/12/20 24 07/12/2024 CT, abdom en + pelvi s, w/o contr ast No observ ation record ed. [address], [place], [address], 07/15/2024 11:27:52 07/16/20 24 07/16/2024 CT, abdom en + pelvi s, w/o contr ast No observ ation record ed. [address], [place], [address], 08/27/2024 14:24:26 08/11/20 24 08/11/2024 CT, abdom en + pelvi s, w/o contr ast No observ ation record ed. [address], [place], [address], 08/27/2024 14:24:26 10/23/19 25 10/16/2024 CT, thora colum bar spine , w/o contr ast No observ ation record ed. [email or web address] [facility] [address], [place], [address], 10/23/2024 11:42:47 Result Notes None recorded. Problems Name Problem SNOMED Code Status Onset Date Resolution Date Notes Provider Name and Address Organization Details Recorded Time Atypical chest pain 616108356 Active 2019 Not Available [facility] 3 01:10:47 Plantar fasciitis of right foot 88203592839 043565 Active 2021 Not Available [facility] 3 01:10:47 Deviated nasal septum 471994243 Active 2021 Not Available [facility] 3 01:10:47 Deep venous thrombosi s 502616008 Completed 201705/08/2018 Not Available 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 3 01:10:47 Chronic back pain 186161408 Active 2022 Not Available [facility] 3 01:10:47 Hyperchol esterolem ia 41944473 Active [address] [facility] 3 01:10:47 Seborrhei c dermatiti s of scalp 775145162 Active 2022 Not Available [facility] 3 01:10:47 Chronic physical disabilit y 911523804 Active 2018 Not Available [facility] 3 01:10:47 History of deep vein thrombosi s 682370931 Active 2017 Not Available [facility] 3 01:10:47 Heartburn 00369235 Active 2017 Not Available [facility] 3 01:10:47 Ultrasoun d scan abnormal 656507035 Active 2020 Not Available [facility] 3 01:10:47 Hypertrop hy of nasal turbinate s 95343549 Active 2021 Not Available [facility] 3 01:10:47 Sensorine ural hearing loss of bilateral ears 815288732 Active 2021 Not Available [facility] 3 01:10:47 Periphera l venous insuffici ency 24306185 Active 2020 Not Available [facility] 3 01:10:47 Myocardia l infarctio n 01006428 Completed 201705/08/2018 Not Available [facility] 3 01:10:48 Stable angina 339033740 Active 2017 Not Available [facility] 3 01:10:48 End stage renal failure on dialysis 738042311 Active 2019 Not Available [facility] 3 01:10:48 Degenerat ion of lumbar intervert ebral disc 53614566 Active 2018 Not Available [facility] 3 01:10:48 Gastroeso phageal reflux disease without esophagit is 298712759 Active 2017 Not Available [facility] 3 01:10:48 Anemia 470826148 Active 2017 Not Available [facility] 3 01:10:48 Chronic low back pain 932571462 Active 2018 Not Available [facility] 3 01:10:48 Pain in toe 020082153 Active 2018 Not Available [facility] 3 01:10:48 Pain in toe 847321584 Active 2018 Not Available [facility] 3 01:10:48 Right upper quadrant pain 900287778 Active 2020 Not Available [facility] 3 01:10:48 Type 2 diabetes mellitus without complicat ion 405683366 Completed 201701/10/2019 Not Available [facility] 3 01:10:48 Pain in left foot 96607439183 9107 Active 2019 Not Available [facility] 3 01:10:48 Vitamin D deficienc y 54748479 Active 2017 Not Available [facility] 3 01:10:49 Seasonal allergic rhinitis 711266155 Active 2017 Not Available [facility] 3 01:10:49 Sinusitis 12727760 Active 2021 Not Available [facility] 3 01:10:49 Hypertens cara disorder 70334774 Active 2017 Not Available [facility] 3 01:10:49 Osteoarth ritis 679792276 Active 2019 Not Available [facility] 3 01:10:49 Umbilical hernia 767734851 Active 2018 Not Available [facility] 3 01:10:49 Vertigo 303516316 Active 2021 Not Available [facility] 3 01:10:49 Abrasion and/or friction burn of skin 459710636 Active 2018 Not Available [facility] 3 01:10:49 Chronic sinusitis 66563826 Active 2021 Not Available [facility] 3 01:10:49 Multiple benign melanocyt ic nevi 809172872 Active 2017 Not Available [facility] 3 01:10:50 Deep venous thrombosi s of lower extremity 018822117 Active 2022 Not Available [facility] 3 01:10:50 Dizziness 137834968 Active 2017 Not Available [facility] 3 01:10:50 Dysphagia 75208441 Active 2021 Not Available [facility] 3 01:10:50 Obesity 193457746 Active 2017 Not Available [facility] 3 01:10:50 Ketoacido sis due to type 1 diabetes mellitus 750422553 Active 2019 Not Available [facility] 3 01:10:50 Nausea 685585465 Active 2021 Not Available [facility] 3 01:10:50 Congestiv e heart failure 61893080 Active 2017 Not Available [facility] 3 01:10:50 Diabetic periphera l neuropath y 983091803 Active 2017 Not Available [facility] 3 01:10:51 Asymmetri nikos hearing loss 821973649 Active 2021 Not Available [facility] 3 01:10:51 Chronic kidney disease stage 4 996825008 Completed 201707/29/2020 Not Available [facility] 3 01:10:51 Chronic kidney disease stage 5 413660694 Active 2019 Not Available [facility] 3 01:10:51 Uncontrol led type 2 diabetes mellitus 244505150 Completed 201705/16/2019 Aditya Castro MD [address] [facility], [place], [address] , [facility] 4 09:03:03 Gastritis 6141016 Active 2021 Not Available [facility] 3 01:10:51 End-stage renal disease 73214315 Active 2019 Not Available [facility] 3 01:10:51 Type 1 diabetes mellitus 15077311 Active 2018 Not Available [facility] 3 01:10:52 Atrial fibrillat ion 77393999 Active 2017 Not Available [facility] 3 01:10:52 Hyperlipi demia 42712926 Active 2017 Not Available [facility] 3 01:10:52 Heart disease 20564862 Active 2017 Not Available [facility] 3 01:10:52 Hyperpara thyroidis m 38860727 Active 2018 Not Available [facility] 3 01:10:52 Nasal congestio n 58331807 Active 2021 Not Available [facility] 3 01:10:52 Diabetes mellitus 72993607 Active 2017 Not Available [facility] 3 01:10:52 Obstructi ve sleep apnea syndrome 84906204 Active 2018 Not Available [facility] 3 01:10:53 Epigastri c pain 48123054 Active 2021 Not Available [facility] 3 01:10:53 Chronic idiopathi c constipat ion 80664323 Active 2020 Not Available [facility] 3 01:10:53 Corneal abrasion 27103139 Active 2018 Not Available [facility] 3 01:10:53 Dystrophi a unguium 27931101 Active 2018 Not Available [facility] 3 01:10:53 Gout 61999970 Active 2017 Not Available [facility] 3 01:10:53 Chronic renal failure 89892496 Completed 201705/08/2018 Not Available [facility] 3 01:10:54 Skin lesion 69466396 Active 2017 Not Available [facility] 3 01:10:54 Hypertrig lyceridem ia 565650426 Active 2022 Aditya Castro MD [address], [address], [place], [address] , [employer] [facility] 3 16:04:08 Chronic constipat ion 627627766 Active 2022 Aditya Castro MD [address], [address], [place], [address] , [facility] 3 16:45:46 Cough 39576263 Active 2022 Aditya Castro MD [address], [address], [place], [address] , [facility] 3 12:45:44 Bronchiti s 56748563 Active 2022 Aditya Castro MD [address], [address], [place], [address] , [employer] [facility] 3 09:22:50 Allergic rhinitis 03339869 Active 2022 Aditya Castro MD [address], [place], [address] , [employer] [facility] 3 09:28:39 Allergic contact dermatiti s 453251786 Active 2022 Aditya Castro MD [address], [address], [place], [address] , [employer] 3 16:06:02 Tinea cruris 564385550 Active 2022 Aditya Castro MD [address], [address], [place], [address] , [employer] [place] [facility] [employer] [facility] 3 16:06:15 Acute bacterial sinusitis 50516249 Active 2023 KATIE Chen [address], [address], [place], [address] , [employer] [place] [employer] [facility] [facility] 4 09:55:25 Ulcer of mouth 48512895 Active 2023 Aditya Castro MD [address], [address], [place], [address] , [employer] [facility] 4 09:03:52 Onychomyc osis of toenails 636208757 Active 2023 Chris Linda DPM [address], [address], [place], [address] , [employer] [facility] 4 12:24:55 Folliculi tis 95020126 Active 2023 Aditya Castro MD [address] [employer], [address], [place], [address] , [employer] [facility] 4 10:26:36 Pain of right knee joint 48593358868 4100 Active 2023 Aditya Castro MD [address] [employer] [address], [address], [place], [address] , [employer] [facility] [employer] [facility] 4 10:31:07 Bleeding of ear canal 103317013 Active 2023 Aditya Castro MD [address], [address], [place], [address] , [employer] - [facility] [employer] [facility] 4 10:40:38 Acute left otitis media 527075198 Active 2023 Rohit Jessica MD [address], [address], [place], [address] , [place] [facility] [employer] [facility] 4 16:04:39 Thoracic back pain 382845232 Active 2023 Aditya Castro MD [address], [address], [place], [address] , [facility] 4 16:28:59 Pain of right shoulder blade 160221821 Active 2023 Aditya Castro MD [address], [address], [place], [address] , [facility] 4 16:30:04 Degenerat ion of thoracolu ar intervert ebral disc 45608367 Active 2023 Aditya Castro MD [address], [address], [place], [address] , [facility] 4 16:30:54 Hypothyro idism 28461182 Active 2023 Aditya Castro MD [address], [address], [place], [address] , [facility] 4 16:34:29 Uncontrol led type 2 diabetes mellitus 997113008 Active 2023 Aditya Castro MD [address], [address], [place], [address] , [facility] 4 09:03:03 Bilateral osteoarth ritis of knees 34296757331 9107 Active 2023 Sofia agosto, [facility] 4 11:42:16 Pain of left knee joint 51766218240 4107 Active 2023 LESLY Gambino [address], [address], [place], [address] , [facility] 4 13:42:14 Pain in right hip joint 97386951712 9102 Active 2023 KELLE John, [place] - [facility] 4 11:11:43 Trochante margarita bursitis of right hip 08748919565 9100 Active 2023 LESLY Gambino [address], [address], [place], [address] , [facility] [employer] [facility] [address] 4 12:00:40 Gallstone 870612502 Active 2023 Aditya Castro MD [address], [address], [place], [address] , [facility] [employer] [facility] 4 11:21:33 Right flank pain 177860639 Active 2023 Aditya Castro MD [address], [address], [place], [address] , [facility] [employer] [facility] 4 11:29:38 Kidney stone 83682725 Active 2023 Aditya Castro MD [address], [address], [place], [address] , [facility] [email or web address] 4 11:31:01 Pleural effusion 25520257 Active 2024 Aditya Castro MD [address], [address], [place], [address] , [employer] [facility] [email or web address] 5 11:40:43 Notes:blood clots, coronary artery disease, head trauma or injury, kidney disease, seizures, use of blood thinners, balance problems, numbness or tingling, loss of memory, swelling in legs, shortness of breath, muscle pain, back/neck pain, swollen or painful joints, excessive thirst, dry mouth, sleep apnea, wears glasses Some problems listed in Document: #[id number] could not be added to this patient's chart. Please review this document and add these problems to the patient's chart manually as needed. Problem Notes None recorded. Procedures Surgical History Date Name Laterality Status Provider Name and Address Organization Details Recorded Time 05/02/20 24 Nail Debridement completed Chris Linda DPM [address], [address], [place], [address], [facility] [employer] 05/20/2024 09:31:13 03/11/20 24 Nail Debridement completed Chris Linda DPM [address], [address], [place], [address], [employer] [facility] 03/11/2024 12:35:50 03/11/20 24 Wound Care-Podiatry completed Chris Linda DPM [address], [address], [place], [address], [employer] 03/11/2024 12:34:57 01/08/20 24 Wound Care-Podiatry completed Chris Linda DPM [address], [address], [place], [address], [employer] 01/08/2024 12:26:31 12/25/19 24 Medicare Wellness CPT Code, subsequent completed Beth Willis RN [facility] [employer] [facility] 12/25/2023 15:24:37 11/06/19 24 Medicare Wellness CPT Code, subsequent cancelled Beth LUAN Willis [facility] [email or web address] 11/03/2023 10:10:00 01/08/20 22 SEPTOPLASTY (SURG) completed Not Available [facility] 10/19/2022 01:16:48 01/22/20 21 Cardiac Cath completed Not Available [facility] 023 01:06:21 reduction of nasal turbinate completed Not Available [facility] 10/19/2022 01:06:21 procedure on heart completed Lisa Lopez CNA [employer] [facility] [email or web address] 05/10/2024 11:11:45 Imaging Results Imaging Date Name Status LastModified by Organization Details LastModified Time 05/02/2024 scapula, right completed [facility] (Imaging) [address] [place], [address], 05/07/2024 09:12:00 05/02/2024 XR, thoracic spine, 3 view completed [facility] (Imaging) [address] [place], [address], 05/07/2024 09:12:00 05/10/2024 XR, knee completed [email or web address] [place] [address], [place], [address], 05/10/2024 13:41:54 06/21/2024 XR, hip + pelvis, unilateral completed [email or web address] [place] [address] [facility] [address], [place], [address], 06/21/2024 12:02:31 07/12/2024 CT, abdomen + pelvis, w/o contrast completed [address], [place], [address], 07/15/2024 11:27:52 07/16/2024 CT, abdomen + pelvis, w/o contrast completed [address], [place], [address], 08/27/2024 14:24:26 08/11/2024 CT, abdomen + pelvis, w/o contrast completed [address], [place], [address], 08/27/2024 14:24:26 10/16/2024 CT, thoracolumbar spine, w/o contrast [email or web address] [facility] [address], [place], [address], 10/23/2024 11:42:47 Procedure Notes None recorded. Medical Equipment None Reported. Allergies Allergen ID Allergen Name Allergen Category Reaction Reaction Severity Criticality Documentation Date Start Date Code Code System Note Provider Name and Address Organization Details Recorded Time 1834 Iodinated contrast media (substanc e) medicatio n rash severe Not available 10/19/2022 04217 2004 SNOMED Not Available [facility] 3 01:16:23 1835 Brilinta medicatio n rash severe Not available 10/19/2022 31839 36 RxNorm Not Available [facility] 3 01:16:23 1836 allopurin ol medicatio n other severe Not available 10/19/2022 519 RxNorm Not Available [facility] 3 01:16:23 Medications Name Sig Start Date Stop Date Status Note LastModified by Organization Details LastModified Time cyclobenz aprine 10 mg tablet TAKE 1 TABLET BY MOUTH EVERY 12 HOURS NEEDED 2024 active Not Available Not Available Not Avai lable furosemid e 40 mg tablet TK 1 [...] Available ketoconaz ole 2 % shampoo APPLY TOPICALL Y 2 TO 3 TIMES EVERY WEEK NEEDED 2024 active Not Available Not Available Not Avai lable tizanidin e 2 mg tablet active Not [...] vir [address] Joshua kirk es Not Available [...] route as directed . [address] Reyes prescrib es Not Available Not Available Not [...] mg by injectio n route. 2023 active [facility]: 0003-049 12-08 Not Available Not Available Not [...] with needle 1 mL 31 gauge x /16 08/01 completed Not Available Not Available Not [...] EVERY 6 HOURS FOR 10 DAYS NEEDED 2024 active Not Available Not Available Not Avai lable colchicin e 0.6 mg tablet TAKE 1 TABLET BY MOUTH 3 TIMES WEEKLY FOR 90 DAYS 2024 active Not Available Not Available Not [...] Updated DateTime 05/10/2024 177.8 cm 37.4 kg/m2 917745.61 g Lisa Lopez CNA [facility] [employer] 05/10/2024 11:09:01 Date Recorded Body height Body mass index (BMI) Body weight Body temperature Heart rate Oxygen saturation Oxygen saturation in Arterial blood by Pulse oximetry Systolic blood pressure Diastolic blood pressure Provider Name and Address Organization Details Last Updated DateTime 177.8 cm 38 kg/m2 644650. 98 g 98.4 [degF] 70 /min 99 % 99 % 148 mm[Hg] 80 mm[Hg] [place] Gil [facility] 15:51:21 Date Recorded Respiratory rate Provider Name a nd Address Organization Details Last Updated DateTime 05/21/2024 20 /min Lisa Gonzáles [address], [address], [address], [facility] 05/21/2024 16:17:14 Date Recorded Body height Body mass index (BMI) Body weight Provider Name and Address Organization Details Last Updated DateTime 06/21/2024 177.8 cm 37.9 kg/m2 736897.39 g Lisa Lopez CNA [facility] [employer] 06/21/2024 11:11:01 Date Recorded Body height Body mass index (BMI) Body weight Body temperature Heart rate Oxygen saturation Oxygen saturation in Arterial blood by Pulse oximetry Pain severity - 0-10 verbal numeric rating [Score] - Reported Systolic blood pressure Diastolic blood pressure Provider Name and Address Organization Details Last Updated DateTime 177.8 cm 38 kg/m2 937994. 19 g 97.3 [degF] 72 /min 97 % 97 % 10 150 mm[Hg] 78 mm[Hg] Lucinda Fletcher RN [facility] 11:26:31 Date Recorded Respiratory rate Provider Name a nd Address Organization Details Last Updated DateTime 07/15/2024 22 /min Lisa Gonzáles [address] [employer], [address], [place], [address], [facility] 07/15/2024 12:05:38 Date Recorded Body height Body mass index (BMI) Body weight Body temperature Heart rate Systolic blood pressure Diastolic blood pressure Provider Name and Address Organization Details Last Updated DateTime 177.8 cm 38.6 kg/m2 816900. 1 g 97.2 [degF] 78 /min 140 mm[Hg] 70 mm[Hg] Jessica Macedo RN [facility] [email or web address] 14:22:23 Date Recorded Oxygen saturation Oxygen saturation in Arterial blood by Pulse oximetry Provider Name and Address Organization Details Last Updated DateTime 08/27/2024 95 % 95 % Aditya Castro MD [address] [facility] [facility] [address], [place], [address], [place] [facility] [email or web address] 08/27/2024 14:24:24 Social History Question Answer Notes LastModified by Organization Details LastModified Time Tobacco Smoking Status Never Smoker Not Available [facility] 10/19/2022 01:04:37 Do You Have An Advance Directive? No MIGRATION.0301 [id number] Information not available 10/19/2022 What Is Your Level Of Alcohol Consumption? None MIGRATION.0301 201830 Information not available 10/19/2022 Are You Blind Or Do You Have Difficulty Seeing? No MIGRATION.0301 [id number] Information not available 10/19/2022 Is Blood Transfusion Acceptable In An Emergency? Yes Information not available 12/07/2023 What Is Your Level Of Caffeine Consumption? Occasional MIGRATION.0301 [id number] Information not available 10/19/2022 How Much Tobacco Do You Chew? None MIGRATION.0301 [id number] Information not available 10/19/2022 What Is Your Code Status? Full Code Information not available 12/07/2023 In The 14 Days Before Symptom Onset, Have You Had Close Contact With A Laboratory-confi rmed COVID-19 While That Case Was Ill? No MIGRATION.0301 [id number] Information not available 10/19/2022 In The 14 Days Before Symptom Onset, Have You Had Close Contact With A Person Who Is Under Investigation For COVID-19 While That Person Was Ill? No MIGRATION.0301 [id number] Information not available 10/19/2022 Are You Deaf Or Do You Have Serious Difficulty Hearing? No MIGRATION.0301 [id number] Information not available 10/19/2022 What Type Of Diet Are You Following? CARDIAC And Renal MIGRATION.0301 [id number] Information not available 10/19/2022 Which Illicit Or Recreational Drugs Have You Used? NONE MIGRATION.0301 [id number] Information not available 10/19/2022 Do You Or Have You Ever Used E-cigarettes Or Vape? Never Used Electronic Cigarettes MIGRATION.0301 [id number] Information not available 10/19/2022 What Is The Highest Grade Or Level Of School You Have Completed Or The Highest Degree You Have Received? [id number] 2 Years MIGRATION.0301 801781 Information not available 10/19/2022 What Is Your Occupation? DISABLED MIGRATION.030 [id number] Information not available 10/19/2022 Have There Been Any Changes To Your Family Or Social Situation? No Information not available 12/07/2023 Are There Any Guns Present In Your Home? No MIGRATION.0301 [id number] Information not available 10/19/2022 Do You Use Insect Repellent Routinely? No Information not available 12/07/2023 Where Do You Live? SingleLevelHouse Information not available 12/07/2023 Advance Directive- Providers Has Reviewed Directive And Consents To Follow Them (insert Provider Name With Any Objectives In Notes Field) No MIGRATION.0301 [id number] Information not available 10/19/2022 Presence Of Domestic [...] Do You Have A Medical Power Of Shop Hand? No Information not available 12/07/2023 What Was The Date Of Your Most Recent Tobacco Screening? 12/25/2023 [email or web address] Information not available 12/25/2023 Do You Have Any Pets? Yes Information not available 12/07/2023 What Is Your Relationship Status? Single MIGRATION.0301 [id number] Information not available 10/19/2022 Do You Use Your Seat Belt Or Car Seat Routinely? Yes MIGRATION.0301 [id number] Information not available 10/19/2022 Do You Have Smoke And Carbon Monoxide Detectors In Your Home? Yes Information not available 12/07/2023 Are You Passively Exposed To Smoke? No Information not available 12/07/2023 Do You Or Have You Ever Used Smokeless Tobacco? Never Used Smokeless Tobacco MIGRATION.030 015526 Information not available 10/19/2022 Are There Any Smokers In Your House? No Information not available 12/07/2023 Do You Feel Stressed (tense, Restless, Nervous, Or Anxious, Or Unable To Sleep At Night)? [id number] MIGRATION.030 [id number] Information not available 10/19/2022 Do You Use Sunscreen Routinely? No Information not available 12/07/2023 Have You Recently Traveled Abroad? No MIGRATION.0301 462301 Information not available 10/19/2022 Are You Currently In School? No MIGRATION.030 542680 Information not available 10/19/2022 Sex: Unknown Functional Status Question Answer Note LastModified by Organizat ion Details LastModified Time Do you have difficulty walking or climbing stairs? No MIGRATION.[id number] 26 Information not available 10/19/2022 Do you have difficulty doing errands alone? No MIGRATION.77260866 26 Information not available 10/19/2022 Do you have difficulty dressing or bathing? No MIGRATION.[id number] 26 Information not available 10/19/2022 What is your exercise level? Occasional MIGRATION.[id number] 26 Information not available 10/19/2022 Mental Status Question Answer Note LastModified by Organizat ion Details LastModified Time Do you have difficulty concentrating, remembering or making decisions? No MIGRATION.[id number] 6 Information not available 10/19/2022 Family History Relationship Description Onset Age of this Age Resolved Age Notes LastModified by Organization Details LastModified Time Father Heart disease MIGRATION.142 [id number] Not available 10/19/2022 01:06:25 Father Hypertensive disorder MIGRATION.607 [id number] Not available 10/19/2022 01:06:25 Notes:cancer-mother NO ENT H ISTORY Medical History Condition Response MRSA N SLEEP APNEA N ALLERGIES/HAYFEVER N HEART ARRHYTHMIA Y LUNG DISEASE/DISORDER N INSOMNIA N HISTORY OF DRUG ABUSE N RADIATION / CHEMOTHERAPY N COPD N HIGH CHOLESTEROL / HYPERLIPIDEMIA Y HYPERTHYROIDISM N BLOOD DISEASES N EAR OR HEARING PROBLEMS N HYPOTHYROIDISM N SHINGLES N DEPRESSION (INCLUDING POST ) N HAVE YOU BEEN HOSPITALIZED OR SEEN IN [facility] ER IN THE PAST YEAR [...] quadrivalent, PF 3 completed BERNARDO Reddy Jerardo [email or web address] 07/03/2023 11:25:39 pneumococcal polysaccharide PPV23 0 completed Not Available [facility] 10/19/2022 01:16:16 Tdap 0 completed Not Available [facility] 10/19/2022 01:16:16 Influenza, split virus, quadrivalent, PF 9 completed Not Available [facility] 01:16:16 Influenza, split virus, quadrivalent, PF 2 completed Not Available [facility] 10/19/2022 01:16:16 Influenza, split virus, quadrivalent, PF 1 completed Not Available [facility] 10/19/2022 01:16:16 Past Encounters Encounter ID Performer Location Encounter Start Date Encounter Closed Date Diagnosis/Indication Diagnosis SNOMED-CT Code Diagnosis ICD10 Code Diagnosis Note [id number] [facility] [address] [place] [address] 10/27/2020 00:00:00 10/27/2020 10:48:24 [id number] [facility] [address] [place] [address] 03/08/2021 00:00:00 03/08/2021 17:34:39 [id number] _ATHENA_M IGRATION_ DEFAULT_1 _1 , 03/22/2021 00:00:00 03/22/2021 20:53:26 [id number] [facility] [address] [place] [address] 06/08/2021 00:00:00 06/09/2021 09:19:54 [id number] [facility] [address] [place] [address] 06/22/2021 00:00:00 06/22/2021 16:14:11 [id number] [facility] [address] [place] [address] 06/29/2021 00:00:00 06/29/2021 12:04:58 [id number] [facility] [address] [address] 07/22/2021 00:00:00 07/22/2021 10:59:05 [id number] [facility] [address] [place] [address] 09/09/2021 00:00:00 09/09/2021 17:59:48 [id number] [facility] [address] [place] [address] 10/05/2021 00:00:00 10/05/2021 16:51:40 [id number] [facility] [place] [address] [place] [address] 10/12/2021 00:00:00 10/12/2021 16:03:48 [id number] [facility] [place] [address] [place] [address] 11/18/2021 00:00:00 11/18/2021 15:39:06 [id number] _ATHENA_M IGRATION_ DEFAULT_1 _1 , 12/20/2021 00:00:00 01/15/2022 22:33:55 [id number] [facility] [address] [facility] [place] [address] 12/28/2021 00:00:00 12/28/2021 11:10:02 [id number] [facility] [place] [address] [place] [address] 01/18/2022 00:00:00 01/18/2022 16:24:34 [id number] [facility] [address] [facility] [place] [address] 01/25/2022 00:00:00 01/25/2022 15:00:07 [id number] [facility] [place] [address] [place] [address] 02/17/2022 00:00:00 02/17/2022 15:06:30 [id number] [facility] [place] [address] [facility] [place] [address] 03/29/2022 00:00:00 03/29/2022 10:58:26 [id number] [facility] [place] [address] [place] [address] 05/12/2022 00:00:00 05/12/2022 14:21:01 [id number] _ATHENA_M IGRATION_ DEFAULT_1 _1 , 05/16/2022 00:00:00 05/16/2022 16:50:12 [id number] [facility] [address] [facility] [place] [address] 07/13/2022 00:00:00 07/13/2022 17:28:54 [id number] [facility] [address] [facility] [place] [address] 09/06/2022 00:00:00 09/06/2022 15:23:[id number] [address] 10/11/2022 00:00:00 10/11/2022 17:27:53 [id number] Aditya Castro MD [address] [address] 11/01/2022 09:46:21 11/01/2022 10:14:11 [id number] Aditya Castro MD [address] [address] 11/08/2022 15:47:51 11/08/2022 16:30:48 Vitamin D deficiency 95198398 E55.9 Gout 12905005 M10.9 Hyperparathyroidism 6699 9008 E21.3 Uncontroll ed type 2 diabetes mellitus 463144848 E11.65 Hypertriglyceridemia 302 405606 E78.2 Hyperlipidemia 34276952 E78.5 Chronic constipation 236 595319 K59.09 Obesity 790721614 E66.9 [id number] Adiyta Castro MD [address] [address] 01/23/2023 09:08:48 01/23/2023 09:38:23 Bronchitis 74272399 J40 Cough 17517249 R05.9 Chronic ki dney disease stage 5 275364446 N18.5 Allergic rhinitis 434943 04 J30.9 Vitamin D deficiency 347 80491 E55.9 [id number] Aditya Castro MD [address] [address] 06/27/2023 15:52:59 06/27/2023 16:15:54 Allergic contact dermatitis 557966685 L23.9 Tinea cruris 851639036 B 35.6 Administra tion of influenza vaccine 48847737 Z23 Chronic low back pain 27 5420859 M54.59 Gout 83788059 M10.9 [id number] Aditya Castro MD [address] [address] 07/10/2023 15:50:39 07/10/2023 16:20:39 Vitamin D deficiency 19702864 E55.9 Gout 38298702 M10.9 Hyperparathyroidism 6699 9008 E21.3 Uncontroll ed type 2 diabetes mellitus 400617896 E11.65 Hypertriglyceridemia 302 654134 E78.2 Hyperlipidemia 06204065 E78.5 Chronic constipation 236 870575 K59.09 Obesity 552224766 E66.9 Bronchitis 95230318 J40 [id number] KATIE Chen [address] [address] 12/07/2023 09:26:05 12/07/2023 11:06:01 Acute bacterial sinusitis 50377315 J01.90 Add humidifcat ion to bedroom at night [id number] Aditya Castro MD [address] [address] 12/25/2023 15:06:36 12/25/2023 16:45:08 Gout 90877629 M10.9 Vitamin D deficiency 347 98368 E55.9 Hyperparathyroidism 6699 9008 E21.3 Uncontroll ed type 2 diabetes mellitus 883148462 E11.65 Hypertriglyceridemia 302 696999 E78.2 Hyperlipidemia 49722633 E78.5 Chronic constipation 236 265335 K59.09 Obesity 393550293 E66.9 Bronchitis 19459495 J40 Adult heal th examination 295282957 Z00.00 Screening for disorder 993099111 Z13.9 Ulcer of mouth 96478435 K12.1 Screening for malignant neoplasm of prostate 926785988 Z12.5 [id number] Chris Linda DPM [facility] [place] [address] [place] [address] 01/08/2024 11:55:29 01/11/2024 12:25:06 Onychomycosis of toenails 313530856 B35.1 educated on conditiont opical antifungal Rxfollow-u p in 1-2 months Blister of toe without infection 45291958 S90.424A right 3rd toeMonitor for infection dailyBetad ine wet-to-dry dressings dailyfollo w-up 1 week Diabetic p eripheral neuropathy 262499530 E11.40 Patient educated on neuropathy , diabetes, diabetic diet, and daily foot exams. Patient is to check feet daily for new wounds, blisters, redness to prevent infection and ulceration s to the feet. Patient will return to clinic in 3 months for diabetic foot workup. Dystrophia unguium 60547 009 L60.3 nails debrided without incident [id number] Aditya Castro MD [address] [address] 02/15/2024 10:01:48 02/15/2024 10:47:11 Gout 63765861 M10.9 Vitamin D deficiency 347 10377 E55.9 Hyperparathyroidism 6699 9008 E21.3 Uncontroll ed type 2 diabetes mellitus 237934027 E11.65 Hypertriglyceridemia 302 462823 E78.2 Hyperlipidemia 59175620 E78.5 Chronic constipation 236 169536 K59.09 Obesity 495972047 E66.9 Bronchitis 74046219 J40 Folliculitis 66993113 L7 3.9 Seborrheic dermatitis of scalp 114500161 L21.0 Pain of ri ght knee joint 8335568827 84781 M25.561 Bleeding of ear canal 30 1628083 H92.22 [id number] Rohit Jessica MD [facility] [place] [address] [place] [address] 02/15/2024 15:35:10 02/16/2024 12:44:58 Acute left otitis media 684123269 H66.92 [id number] Chris Linda DPM [facility] [place] [address] [place] [address] 03/11/2024 12:07:37 03/12/2024 16:35:57 Blister of foot without infection 3261125 S90.821A right foot medial 1st metatarsop halangeal jointofflo adingwound care daily until healedfoll ow-up 10 days Blister of toe without infection 49059415 S90.425A left 4th toetriple antibiotic ointment and Band-Aid appliedwou nd care as above Diabetes mellitus 269424 09 E13.9 Continue diabetic control per PCP recommenda tion Diabetic p eripheral neuropathy 987512800 E11.40 Patient educated on neuropathy , diabetes, diabetic diet, and daily foot exams. Patient is to check feet daily for new wounds, blisters, redness to prevent infection and ulceration s to the feet. Patient will return to clinic in 3 months for diabetic foot workup.con tinue diabetic shoe gear Dystrophia unguium 42562 009 L60.3 nails debrided without incident [id number] Aditya Castro MD [address] [place] [address] 04/16/2024 16:08:23 04/16/2024 17:22:18 Thoracic back pain 483331336 M54.6 Pain of ri ght shoulder blade 559527865 M25.511 Degenerati on of thoracolumbar intervertebral disc 62075432 M51.35 Hypothyroidism 96879985 E03.9 Obesity 947157702 E66.9 End stage renal failure on dialysis 288384736 N18.6 Chronic low back pain 27 3512351 M54.59 [id number] Chris Linda DPM [facility] [place] [address] [place] [address] 05/02/2024 10:29:22 05/20/2024 11:32:52 Onychomycosis of toenails 321345683 B35.1 right great toenailsch eduled total nail avulsionRe viewed treatment optionsFol low-up for procedure Right great toenail avulsion scheduled 07/15/2024 Peripheral venous insufficiency 03219206 I87.2 Rx compressio n stockings 20 30 mm Hgelevatio n when at restmonito r for signs of DVT at present seek medical attention immediatel y Dystrophia unguium 51663 009 L60.3 nails debrided without incident Abrasion a nd/or friction burn of skin 918766334 T14.8XXA healed abrasions x4 left lower leg Diabetic p eripheral neuropathy 101285940 E11.40 Patient educated on neuropathy , diabetes, diabetic diet, and daily foot exams. Patient is to check feet daily for new wounds, blisters, redness to prevent infection and ulceration s to the feet. Patient will return to clinic in 3 months for diabetic foot workup.con tinue diabetic shoe gear [id number] Aditya Castro MD [address] [address] 05/07/2024 09:01:36 05/07/2024 09:40:15 Gout 51816328 M10.9 Vitamin D deficiency 347 25262 E55.9 Hyperparathyroidism 6699 9008 E21.3 Uncontroll ed type 2 diabetes mellitus 390185833 E11.65 Hypertriglyceridemia 302 382053 E78.2 Hyperlipidemia 64378833 E78.5 Chronic constipation 236 404491 K59.09 Obesity 807055301 E66.9 Pain of ri ght knee joint 1597720198 45212 M25.561 Chronic Screening for malignant neoplasm of prostate 406297502 Z12.5 Chronic back pain 537077 002 G89.29 Screening colonoscopy 44 0537787 Z12.11 [id number] LESLY Gambino [facility] [place] [address] [place] [address] 05/10/2024 10:46:13 05/10/2024 11:48:23 Pain of right knee joint 4480484140 67485 M25.561 Bilateral osteoarthritis of knees 5956508877 24109 M17.0 Pain of le ft knee joint 0087672619 16740 M25.425 [id number] Aditya Castro MD [address] [address] 05/21/2024 15:45:57 05/21/2024 16:21:32 Gout 67816169 M10.9 Vitamin D deficiency 347 14098 E55.9 Uncontroll ed type 2 diabetes mellitus 998543631 E11.65 Hypertriglyceridemia 302 190766 E78.2 Hyperlipidemia 61415622 E78.5 Chronic constipation 236 434404 K59.09 Obesity 583288498 E66.9 Pain of ri ght knee joint 6578317143 24689 M25.561 Chronic Chronic back pain 061645 002 G89.29 [id number] LESLY Gambino [facility] [place] [address] [place] [address] 06/21/2024 11:06:53 06/21/2024 11:57:45 Bilateral osteoarthritis of knees 4046997908 32714 M17.0 Pain of ri ght knee joint 6249159470 64203 M25.561 Pain of le ft knee joint 5310153431 17473 M25.562 Pain in ri ght hip joint 0451866687 79520 M25.551 Trochanter ic bursitis of right hip 8200877939 32307 M70.61 [id number] Aditya Castro MD [address] [address] 07/15/2024 10:53:35 07/15/2024 12:16:54 Chronic constipation 478961362 K59.09 Chronic back pain 663436 002 G89.29 Obesity 883762062 E66.9 [facility] 308693411 Z76.89 Gallstone 214967182 K80. 20 Right flank pain 1569490 09 R10.9 Kidney stone 23711840 N2 0.0 Rt Impaired mobility 493270 05 Z74.09 Due to pain [id number] Aditya Castro MD [address] [address] 08/27/2024 14:12:33 08/27/2024 14:51:01 Right flank pain 651772577 R10.9 Kidney stone 85903851 N2 0.0 Rt Gallstone 137158275 K80. 20 Chronic constipation 236 764468 K59.09 Chronic back pain 681453 002 G89.29 Impaired mobility 550443 05 Z74.09 Due to pain Obesity 601464598 E66.9 Hospital i npatient stay within past 30 days 2534918150 106 Z76.89 Gout 66492114 M10.9 Gastroesop hageal reflux disease without esophagitis 429949475 K21.9 End-stage renal disease 58634708 N18.6 History of deep vein thrombosis 102375751 Z86.718 Hyperlipidemia 39009343 E78.5 Hypertriglyceridemia 302 362525 E78.2 Health Concerns Section Related Observation LastModified by Organization Detai ls LastModified Time None Recorded Concern Status LastModified by Organization Details LastModified Time None Recorded Advance Directives Directive N: Payers Encounter Date Sequence Insurance Name Policy Number Policy Ge Covered Member ID Ge Member ID Guarantor Name 05/10/2024 2 [place] WHEN [place]ARE OR MEDICARE REPLACEMENT PRIMARY) Juvenal Daigle [id number] Juvenal Vargasbe 05/10/2024 1 [facility] (MEDICARE REPLACEMENT/AD VANTAGE - PPO) [id number] Juvenal Daigle [id number] Juvenal Newcombe 05/21/2024 2 [place] OR MEDICARE REPLACEMENT PRIMARY) Juvenal Daigle [id number] Juvenal Vargasbe 05/21/2024 1 [facility] (MEDICARE REPLACEMENT/AD VANTAGE - PPO) [id number] Juvenal Vargasbe [id number] Juvenal Newcombe 06/21/2024 2 [place] OR MEDICARE REPLACEMENT PRIMARY) Juvenal Daigle [id number] Juvenal Vargasbe 06/21/2024 1 [facility] (MEDICARE REPLACEMENT/AD VANTAGE - PPO) [id number] Juvenal Vargasbe [id number] Juvenal Newcombe 07/15/2024 2 [place] OR MEDICARE REPLACEMENT PRIMARY) Juvenal Daigle [id number] Juvenal Vargasbe 07/15/2024 1 [facility] (MEDICARE REPLACEMENT/AD VANTAGE - PPO) [id number] Juvenal Vargasbe [id number] Juvenal Newcombe 08/27/2024 2 [place]ARE OR MEDICARE REPLACEMENT PRIMARY) Juvenal Daigle [id number] Juvenal Vargasbe 08/27/2024 1 [facility] (MEDICARE REPLACEMENT/AD VANTAGE - PPO) [id number] Juvenal Vargasbe [id number] Juvenal Vargasbe Notes Date Note Type Note Provider Name [...] today with the patient. LESLY Gambino [address] [facility], [facility] [address], [place], [address], [place] [facility] [address] 05/10/2024 13:42:57 05/21/2024 text/html Pt is here [...] Pt is also f/u with Nephro at [place] for kidney transplant team.Pt is f/u with Endo for his DM and hyperparathyroidism.Pt has seen Derm at [facility] for his multiple moles and no concerns [...] has not worked. Aditya Castro MD [address] [facility], [address], [place], [address], [place] [employer] [address] 05/21/2024 16:20:25 06/21/2024 text/html The patient retu [...] the groin with weight-bearing. LESLY Gambino [address] [facility], [address] [address], [place], [address], [employer] 06/21/2024 12:03:04 07/15/2024 text/html ACV:ED fuv. C/o [...] and Cardio regularly. Aditya Castro MD [address] [facility], [facility] [address], [place], [address], [employer] 07/15/2024 12:12:12 08/27/2024 text/html ACV:Hospital fuv . Pt was admitted to [facility] from 08/17/24 to 08/19/24 due to hematuria, pneumonia and hyperkalemia. He has finished all his meds and he is feeling much better now. Pt is requesting Rx for bedside commode and marcelo hose stockings. Pt will be seeing Surg for his gallstones next week. Pt is f/u with Uro at [facility] for his kidney stones and hematuria. Pt has chronic back pain for last several years and was seeing Pain clinic and Spine surgeon for it in the past; but he has not seen them for last couple years. Pt is f/u with Nephro, Endo and Cardio regularly. Aditya Castro MD [address] [place] [address], [place], [address], [facility] 08/27/2024 15:24:37
--- OUTSIDE RECORDS SUMMARY | 2024-10-24 17:55 | XMS_ITS | CONTINUITY OF CARE DOCUMENT ---
Author Name archana rindemian Address Unknown Organization [facility] Address 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 GFR <15 active Hamlet Ortega MD Atrial Fibrillation active Hamlet Ortega MD ENCOUNTERS Date Type Provider Location Encounter Diag nosis - In-person encounter Office Visit Hamlet Ortega MD [place] - In-person encounter Office Visit Hamlet Ortega MD [facility] Atrial Fibrillation - In-person encounter Office Visit Hamlet Ortega MD [facility] Office - In-person encounter Office Visit Hamlet Ortega MD [place] [facility] C A B G:Valve SurgeryCKD stage ESRD on dialysis GFR <15 - In-person encounter Office Visit Hamlet Ortega MD [place] [facility] - In-person encounter Office Visit Hamlet Ortega MD [facility] Office - In-person encounter Office Visit Hamlet Ortega MD [facility] OverweightAortic insufficiency - In-person encounter Office Visit Hamlet Ortega MD [place] - In-person encounter Office Visit Hamlet Ortega MD [place] - In-person encounter Office Visit Hamlet Ortega MD [place] - In-person encounter Office Visit Hamlet Ortega MD [place] - In-person encounter Office Visit Hamlet Ortega MD [place] - In-person encounter Office Visit Hamlet Ortega MD [place] - In-person encounter Office Visit Hamlet Ortega MD [place] [facility] - In-person encounter Office Visit Hamlet Ortega MD [facility] Office - In-person encounter Office Visit Hamlet Ortega MD [place] [facility] - In-person encounter Office Visit Hamlet Ortega MD [place] - In-person encounter Office Visit Hamlet Ortega MD [place] - In-person encounter Office Visit Hamlet Ortega MD [place] - In-person encounter Office Visit Hamlet Ortega MD [place] Dizziness - In-person encounter Office Visit Hamlet Ortega MD [place] [facility] - In-person encounter Office Visit Hamlet Ortega MD [facility] Office - In-person encounter Office Visit Hamlet Ortega MD [place] - In-person encounter Office Visit Hamlet Ortega MD [place] Family History of Hypertension:Coronary artery diseaseShortness of breathDyspnea on exertionChest pain-type to be determinedDiabetes, Type 1HyperlipidemiaHTN essentialSleep apnea, obstructiveAcute deep venous thrombosis of leg, rightHypertensionCoronar y Heart Disease VITAL SIGNS Date Observation Value Provider Body Mass Index (Ratio) 37.30 kg/m2 Michael Ortega MD oxygen saturation, oximetry 97 % Nafisa Delarosa pulse rate 101 /min Nafisa Delarosa blood pressure, diastolic 70 mm[Hg] Marija Delarosa blood pressure, systolic 109 mm[Hg] Peggy Delarosa respiratory rate E&M 14 /min Nafisa Delarosa weight E&M 260 [lb_av] Nafisa Delarosa height E&M 70 [in_i] Nafisa Delarosa blood pressure, cuff size regular Marija Delarosa Body Mass Index (Ratio) 37.76 kg/m2 Michael Ortega MD blood pressure, diastolic 82 mm[Hg] Glo nkLogic blood pressure, systolic 140 mm[Hg] Lavern kLogic blood pressure, cuff size large As nohelia Benjamin blood pressure, diastolic 82 mm[Hg] As nohelia Benjamin blood pressure, systolic 140 mm[Hg] Hussein Benjamin oxygen saturation, oximetry 93 % Aury Sourav pulse rate 120 /min Aury Sourav weight E&M 263.2 [lb_av] Aury Benjamin Body Mass Index (Ratio) 40.31 kg/m2 Michael Ortega MD blood pressure, diastolic 79 mm[Hg] [facility], systolic 169 mm[Hg] Molly carrillo [facility] oxygen saturation, oximetry 100 % [facility] pulse rate 94 /min [facility] weight E&M 281 [lb_av] [facility] height E&M 70 [in_i] Lexus [facility] blood pressure, diastolic 101 mm[Hg] Chapo montaguen Major blood pressure, systolic 157 mm[Hg] aVnna garay Major oxygen saturation, oximetry 96 % [facility] pulse rate 122 /min Chapomclaren flintmegan Major blood pressure, cuff size regular Chapo dena Major Body Mass Index (Ratio) 38.62 kg/m2 Zoë on Major weight in kilograms E&M 122.11 kg Zoë on Major weight E&M 269.2 [lb_av] Chapomclaren flintn Major height E&M 70 [in_i] Chapoaromegan Major height in centimeters E&M 177.80 cm Chapo dena Major Body Mass Index (Ratio) 38.16 [...] Omari oxygen saturation, oximetry 98 % Omari respiratory rate E&M 18 /min Omari weight E&M 267 [lb_av] Omrai erda y height E&M 70 [in_i] Omari er y Body Mass Index (Ratio) 37.88 kg/m2 Michael Ortega MD blood pressure, diastolic 81 mm[Hg] Marija Connelly blood pressure, systolic 151 mm[Hg] Nadine Connelly oxygen saturation, oximetry 98 % Saniya Connelly pulse rate 77 /min Saniya Connelly weight E&M 264 [lb_av] Saniya Connelly blood pressure, cuff size large An tami Godwin height E&M 70 [in_i] Saniya Body Mass Index (Ratio) 38.16 kg/m2 Michael Ortega MD blood pressure, cuff size regular Ja rret blood pressure, diastolic 79 mm[Hg] Ja rret blood pressure, systolic 148 mm[Hg] Jar ret pulse rate 79 /min Omari respiratory rate E&M 12 /min Omari oxygen saturation, oximetry 97 % Omari weight E&M 266 [lb_av] Omari height E&M 70 [in_i] Omari Body Mass Index (Ratio) 37.59 kg/m2 Michael Ortega MD blood pressure, cuff size large Ja rr blood pressure, diastolic 95 mm[Hg] Ja rret blood pressure, systolic 160 mm[Hg] Jar pulse rate 75 /min Omari respiratory rate E&M 12 /min Omari oxygen saturation, oximetry 98 % Omari weight E&M 262 [lb_av] Omari height E&M 70 [in_i] Omari Body Mass Index (Ratio) 39.74 kg/m2 Michael Ortega MD blood pressure, diastolic 65 mm[Hg] Glo nkLogedu blood pressure, systolic 129 mm[Hg] Lavern Wallogedu blood pressure, diastolic 65 mm[Hg] Sh isaiah Ferrera blood pressure, systolic 129 mm[Hg] She rrjoanie Ferrera pulse rate 79 /min Miriam Ferrera respiratory rate E&M 20 /min Miriam Ferrera oxygen saturation, oximetry 97 % Miriam Ferrera blood pressure, cuff size regular Marion Ferrera weight E&M 277 [lb_av] Miriam Ferrera height E&M 70 [in_i] Miriam Ferrera Body Mass Index (Ratio) 38.59 kg/m2 Michael Ortega MD blood pressure, diastolic 83 mm[Hg] jodijoanie Hay blood pressure, systolic 155 mm[Hg] Wilfredo Hay oxygen saturation, oximetry 97 % Nida Hay respiratory rate E&M 16 /min Nida Light susan pulse rate 70 /min Nida Hay weight E&M 269 [lb_av] Nida Hay height E&M 70 [in_i] Nidachad Hay blood pressure, diastolic 92 mm[Hg] Sa [...] Karley Holly pulse rate 60 /min Karley Campbel l respiratory rate E&M 18 /min Karley Holly [...] Nguyễn Nick madison weight E&M 294 [lb_av] Shervictoriaa Nick madison height E&M 70 [in_i] Sherkeitha Craw madison Body Mass Index (Ratio) 41.18 kg/m2 Michael Ortega MD blood pressure, diastolic 79 mm[Hg] Cy maddie Holly blood pressure, systolic 141 mm[Hg] Aida silviohayden Holly blood pressure, cuff size regular Cy ntsole Holly pulse rate 57 /min Karley Mkbel l respiratory rate E&M 16 /min Karleykathy Holly oxygen saturation, oximetry 98 % Karley Holly weight E&M 287 [lb_av] Karley Campbel l height E&M 70 [in_i] Karley Campbel l Body Mass Index (Ratio) 38.31 kg/m2 Michael Ortega MD blood pressure, diastolic 77 mm[Hg] Cy maddie Avni blood pressure, systolic 148 mm[Hg] Aida kathy Avni blood pressure, cuff size regular Cy maddie Avni respiratory rate E&M 16 /min Karley Avni pulse rate 83 /min Karley Mkbel l oxygen saturation, oximetry 97 % Karley Avni weight E&M 267 [lb_av] Karley Campbel l height E&M 70 [in_i] Karley Mkbel l Body Mass Index (Ratio) 38.16 kg/m2 Michael Ortega MD blood pressure, cuff size regular Cy maddie Avni blood pressure, diastolic 58 mm[Hg] Cy maddie Avni blood pressure, systolic 148 mm[Hg] Aida kathy Holly oxygen saturation, oximetry 98 % Karley Holly respiratory rate E&M 16 /min Karley Holly pulse rate 53 /min Karley Campbel l weight E&M 266 [lb_av] Karley Campbel l height E&M 70 [in_i] Karley Campbel l Body Mass Index (Ratio) 37.73 kg/m2 Michael Ortega MD respiratory rate E&M 16 /min Karley Holly blood pressure, cuff size regular Cy maddie Avni blood pressure, diastolic 62 mm[Hg] Cy maddie Avni blood pressure, systolic 140 mm[Hg] Aida chavez Avni oxygen saturation, oximetry 97 % Karley [...] durga Connelly blood pressure, diastolic 50 mm[Hg] Tay Connelly blood pressure, systolic 132 mm[Hg] Jhonny Connelly oxygen saturation, oximetry 97 % Kimber Connelly respiratory rate E&M 17 /min Kimber Connelly pulse rate 64 /min Kimber marr weight E&M 266 [lb_av] Kimber marr height E&M 70 [in_i] Kimber marr Body Mass Index (Ratio) 39.45 kg/m2 Michael Ortega MD blood pressure, cuff size regular Cy vernhayden Avni blood pressure, diastolic 60 mm[Hg] Chad maddie Holly blood pressure, systolic 154 mm[Hg] Aida Holly oxygen saturation, oximetry 98 % Karley Holly respiratory rate E&M 18 /min Karley Holly pulse rate 65 /min Karley Mkcristhian williams weight E&M 275 [lb_av] Karley Reese williams height E&M 70 [in_i] Karley Campbel l Body Mass Index (Ratio) 38.31 kg/m2 Michael Ortega MD oxygen saturation, oximetry 98 % Chastity Ab blood pressure, diastolic 70 mm[Hg] Ch astity Ab blood pressure, systolic 142 mm[Hg] Lolis stity Ab pulse rate 66 /min Chastity Ab respiratory rate E&M 16 /min Chastit y Ab weight E&M 267 [lb_av] Chastity Ab height E&M 70 [in_i] Chastity Ab Body Mass Index (Ratio) 37.73 kg/m2 Michael Ortega MD blood pressure, cuff size regular Cy maddie Holly blood pressure, diastolic 58 mm[Hg] Cy maddie Holly blood pressure, systolic 152 mm[Hg] Aida kathy Holly oxygen saturation, oximetry 98 % Karley Holly respiratory rate E&M 16 /min Karley Holly pulse rate 65 /min Karley Reese l weight E&M 263 [lb_av] Karley Mkbel l height E&M 70 [in_i] Karley Mkbel l Body Mass Index (Ratio) 38.77 kg/m2 Michael Ortega MD blood pressure, resting Yes Rehana Burton blood pressure, diastolic 64 mm[Hg] Nisa Burton blood pressure, systolic 154 mm[Hg] Garima Burton oxygen saturation, oximetry 98 % Hai Burton respiratory rate E&M 18 /min Brooke Burton pulse rate 67 /min Hai garcia weight E&M 270.2 [lb_av] Hai hansen height E&M 70 [in_i] Hai Alex nson ALLERGIES Allergy Name Onset Date Reaction Criticality Status IODINE DYE Low Criticality active BRILINTA Low Criticality active RESULTS Date Observation Value Provider Reference Range Interpretation Location coagulation managed by Pamela Nicole RN Pamela Nicole RN international normalized ratio (INR) 5.5 Pamela Nicole RN Normal coagulation managed by Pamela Nicole RN Pamela Nicole RN international normalized ratio (INR) 3.4 Pamela Nicole RN Normal coagulation managed by Rayna Rodriguez RN Rayna Rodriguez RN international normalized ratio (INR) 2.3 Rayna Rodriguez RN Normal coagulation managed by Arabella Taylor RN Arabellajoya Taylor international normalized ratio (INR) 1.1 Arabella Taylor Normal coagulation managed by Pamela Nicole RN Pamela Nicole RN international normalized ratio (INR) 6.2 Pamela Nicole RN Normal coagulation managed by Pamela Nicole RN Pamela Nicole RN international normalized ratio (INR) 8.0 Pamela Nicole RN Normal coagulation managed by Pamela Nicole RN Pamela Nicole RN international normalized ratio (INR) 2.8 Pamela Nicole RN Normal coagulation managed by Rayna Rodriguez RN international [...] Arabella Taylor international normalized ratio (INR) 1.2 Arabelal Taylor Normal international normalized ratio (INR) 4.9 [...] LinkLogic 3.5-5.2 sodium, serum 140 mmol/L LinkLogic [phone]/03/ 21 urea nitrogen/creatini ne ratio, serum 17 [...] Not Estab. platelet count 261 X10E3/UL LinkLogic [phone]/03/ 21 red blood cell distribution width 13.9 [...] Status Instructions Dates Provider Indications Com ments metoprolol succinate 50 mg tablet extended [...] tablet by mouth once a day Arabella Taylor rat exterminator anticoagulant therapy warfarin 3 mg tablet completed Take 1 tablet by mouth every evening EXCEPT on Mon Wed and Fri , take 1 and one half tablet. (4.5 mg) - Annemarie Connelly RN rat exterminator anticoagulant therapy warfarin 2 mg tablet completed 1 tab on 01/19, 01/20, 01/21, 01/22 - Robin Villarreal RN levothyroxine 25 mcg tablet active Take 1 tablet by mouth every morning Annemarie Connelly RN warfarin 3 mg tablet completed Take 1 tablet by mouth every evening EXCEPT on Mon and take one half tablet. (1.5 mg) - Moustapha Koehler RN skilled nursing anticoagulant therapy warfarin 2 mg tablet completed [...] CAPSULE active 1 tablet once a day Harriett Berger calcitriol 0.25 mcg capsule active 1 capsule three times a week Harriett Berger furosemide 80 mg tablet completed Take [...] completed One Tab By Mouth Daily - Chastity Ab HYDRALAZINE HCL 100 MG ORAL TABLET [...] Saniya Connelly smoking status Never smoker Saniya Godwin social [...] revi ewed - no changes required Hamlet Oretga MD social history reviewed E&M revi ewed [...] MD passive cigarette sm kat exposure no Karlye Holly smoking status Never smoker Karley Terrazaschad [...] E&M revi ewed - no changes required Halmet Ortega MD passive cigarette sm kat exposure [...] MD smoking status Never smoker Kimber Bear [facility] social history E&M Marital Statu s: Michael asher: 3 O ccupation: Disabled Smoking History: P atient has never smoked. Hamlet Ortega MD social history reviewed E&M revi ewed - no changes required Hamlet Ortega MD alcohol use no Karley Reese williams passive cigarette sm kat exposure no Karley [...] no Lolisstlian Ab smoking status Never smoker Chastity Hogu e social history E&M Marital Statu s: C stevensonen: 3 O ccupation: Disabled Smoking History: P atient has never smoked. Hamlet Ortega MD social history reviewed E&M revi ewed - no changes required Hamlet Ortega MD alcohol use no Karley Hugh kramer passive cigarette sm kat exposure no Karleykathy Holly smoking status Never smoker Karley Arnel rosas alcohol use no Hamlet Light passive cigarette sm kat exposure no Hamlet Ortega MD social history reviewed E&M revi ewed - no changes required Hamlet Ortega MD social history E&M Marital Statu s: C asher: 3 O ccupation: Disabled Smoking History: P atient has never smoked. Hamlte Ortega MD appendectomy, history of Appendectomy, Hx [...] Payer name Policy type / Coverage type [place] [employer] ID [id number] COMPLETE CARE [id number] (PPO C-SNP) Commercial insurance [employer] [id number] [facility] Medicaid 3 [id number] ADVANCE DIRECTIVES Name Date DISCUSSED - NO DECISION MADE TREATMENT PLAN Date Name Performer [id number],SHamlet MD [id number],SHamlet MD [id number],SHamlet MD [id number],SHamlet MD [id number],SHamlet MD [id number],SHamlet MD [id number],SHamlet MD [id number],S, Hamlet Ramada n [place] [id number],S, Hamlet Ramada n [place] [id number],S, Hamlet Ram[place] n [place] [id number],S, Hamlet Ram[place] n [place] [id number],S, Hamlet Ramada n [place] [id number],S, Hamlet Ramada n [place] [id number],C,T he patient is using BiPAP on a regular basis. The patient has been benefiting from therapy and should continue use. Hamlet Bloomn MT [id number],S, Hamlet Ramada n [place] [id number],S, Hamlet Ramada n [place] [id number],S, Hamlet Ram[place] n [place] [id number],S, Hamlet Ramada n [place] [id number],S, Hamlet Ramada n [place] [id number],S, Hamlet [place] [id number],S, Hamlte Ramada n [place] [id number],S, Hamlet Ramada n [place] [id number],S, Hamlet Ram[place] n [place] [id number],S, Hamlet Ramada n [place] [id number],S, Hamlet Ramada n MT [id number],S, Hamlet Ramada n [place] [id number],S, Hamlet Ramada n [place] [id number],C,T he patient is using CPAP on a regular basis. The patient has been benefiting from therapy and should continue use. Hamlet Ortega MD [id number],B, Hamlet Merle guzman MD [id number],S, Hamlettim Loredodewayne guzman MD [id number],B, Hamlet guzman MD [id number],B, Hamlet guzman MD [id number],S, Hamlet Merle guzman MD [id number],S, Hamlet Merle guzman MD [id number],B, Hamlet guzman MD [id number],S, Hamlet Merle guzman MD [id number],S,L ast stress 01/08 had some abnormalities that fit with known coronary anatomy. No significant symptoms at this point. Will follow closely, no cath at this point. Patient is encouraged to increase activity as tolerated, particularly exercise in form of walking on treadmill. Hamlet Ortega MD [id number],B, Hamlet guzman MD [id number],S, Hamlet guzman MD [id number],S, Hamlet guzman MD [id number],C,T he patient is using CPAP on a regular basis. The patient has been benefiting from therapy and should continue use. Hamlet Ortega MD [id number],S, Hamlet guzman MD [id number],S,L ast stress 01/08 had some abnormalities that fit with known coronary anatomy. No significant symptoms at this point. Will follow closely, no cath at this point. Hamlet Ortega MD Cardiology Hamlet Ortega MD Cardiology Hamlet Ortega MD Cardiology Hamlet Ortega MD Cardiology:Etiology unclear. BP has been ok at home. M ay be related to severe diabetic neuropathy Hamlet Ortega MD Cardiology:Was suppo sed to get tele monitor, but never was called. Will reorder. Need to see if he is going in and out of a-fib. Hamlet Ortega MD Cardiology:This visi t has been a part of the consistent, comprehensive, and ongoing management of the chronic medical condition(s) listed above for the patient. S /P CABG Hamlet Ortega MD Cardiology: R PM shows [...] Hamlet Ortega MD Cardiology:On peritoneal dialysi s Hmalet Ortega MD Cardiology: T he patient is [...] MD Cardiology Hamlet Shannon ARNOLD Cardiology Hamlet Ortega MD Cardiology Hamlet Shannon ARNOLD Cardiology Hamlet Shannon ARNOLD Cardiology:The patie nt is using CPAP on [...] use. Hamlet Ortega MD Cardiology follow up Hamelt cantu MD Cardiology hospital follow up Ra [...] Cardiology Hamlet Ortega MD Cardiology:Needs cath Hamlet urieb MD Cardiology follow up Hamlet cantu MD [...] MD Cardiology Hamlet Ortega MD Date Name Monitor - Telemetry (Mobile Cardiac) PROTHROMBIN TIME WIT H INR Monitor - [...] RN completed Jacob Newberry MD complete d Martellime Kota Stover MD completed Jacob Newberry MD complete d Protime Robin Villarreal RN completed Protime Patrick Almonte MD complet ed Phone Anti-Coag Management Hamlte Ortega MD completed Protime Pro Alexis MD [...]
--- OUTSIDE RECORDS SUMMARY | 2024-10-24 17:55 | XMS_ITS | Encounter Summary ---
Author Organization [facility] [employer] [facility] Address [address] [place] [address] Care Team Providers Care Mechanical Project Engineer Name Role Phone Aditya Castro MD Primary Care Provider [phone] Encounter Details Date Type Department Care Team (Late st Contact Info) Description 04/15/2019 Telephone [facility] - [place] [address] [facility] [address] [place] [address] Fernando Schmid MD [address] [facility] [address] [place] [address] Social History Tobacco Use Types [...] filedocumented in this encounter Care Teams Mechanical Project Engineer Relationship Specialty Start Date End Date Aditya Csatro MD PCP - General Student in an Organized Health Care Education/Training Program 09/11/18 documented as of this encounter
--- OUTSIDE RECORDS SUMMARY | 2024-10-24 17:55 | XMS_ITS | Data Portability ---
Author Organization [facility] IP Address [address] [place] [address] Care Team Providers Care Warrant Clerk Name Role Phone STEPHANIE CORREA Primary Care Provider [phone] Assessment No assessment recorded. Plan of Treatment [...] By Organization Details Last Modified Time 07/25/2018 [id number] use OTC lubrican t eyedrops 3 times a day in both eyes. msafi Not available 07/25/2018 17:27:28 Keep follow-up appointments in 2 months as scheduled. msafi Not available 07/25/2018 17:27:45 12/05/2018 [id number] diabetic retinopathy: care instructions msafi Not available 12/05/2018 20:02:55 type 2 diabetes: care instructions [facility] 12/05/2018 20:02:55 Reason for Referral None Reported. Problems Name Problem SNOMED Code Status Onset Date Resolution Date Notes Provider Name and Address Organization Details Recorded Time Diabetes mellitus 30694105 Active 2017 Wandy agosto [facility] 8 12:14:02 Hypercholestero lemia 79213037 Active 2017 Wandy agosto [place] [facility] 8 12:14:14 Problem Notes None recorded. Procedures Surgical History Date Name Laterality Status Provider Name and Address Organization Details Recorded Time 9 placement of stent in coronary artery completed Wandy Rapp [place] Jude COUNT [facility] 12/05/2018 10:00:35 7 placement of stent [...] Name and Address Organization Details Recorded Time 470196 Brilinta medicatio n Not available Not available Not available 07/04/2018 41421 36 RxNorm Not Available Not Available Not Available 282667 Iodinated contrast media (substanc e) medicatio n Not available Not available Not available 07/04/2018 72682 2004 SNOMED Not Available Not Available Not [...] 8 180.34 cm 64 /min 37 kg/m2 744299. 98 g 161 mm[Hg] 66 mm[Hg] Wandy Rapp [facility] SIF 8 12:12:14 Date Recorded Body height Heart rate Body mass index (BMI) Body weight Systolic blood pressure Diastolic blood pressure Provider Name and Address Organization Details Last Updated DateTime 8 180.34 cm 63 /min 36.9 kg/m2 880079. 46 g 148 mm[Hg] 67 mm[Hg] Bernice Connelly RN [facility] SI 8 15:12:11 Date Recorded Body height Body mass index (BMI) Body weight Heart rate Systolic blood pressure Diastolic blood pressure Provider Name and Address Organization Details Last Updated DateTime 180.34 cm 37.8 kg/m2 443715. 53 g 62 /min 133 mm[Hg] 64 mm[Hg] Wandy Rapp [facility] SI 9 09:58:22 Social History Question Answer Notes LastModified by Organizat ion Details LastModified Time Tobacco Smoking Status Never Smoker Wandy Rapp [facility] 12/05/2018 09:58:54 What Was The Date Of Your Most Recent Tobacco Screening? 12/05/2018 Information not available 03/14/2019 Has Tobacco Cessation Counseling Been Provided? 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 3739982213 46095 E11.3299 Tear film insufficiency 06739114 H04.717 [id number] Evy Olson MD [facility] [address] [place] [address] 12/05/2018 09:46:14 12/06/2018 13:28:35 Nonproliferative retinopathy due to diabetes mellitus 343764503 E11.3293 After-juan ract with vision obscured following extraction of cataract 700848198 H26.492 Health Concerns Section Related Observation LastModified by Organization Detai ls LastModified Time None Recorded Concern Status LastModified by Organization Details LastModified Time None Recorded Advance Directives Directive None Recorded Payers Encounter Date Sequence Insurance Name Policy Number Policy Ge Covered Member ID Ge Member ID Guarantor Name 07/04/2018 1 [facility] (MEDICAID HMO) [id number] Juvenal Newcombe [id number] Juvenal Newcombe 07/25/2018 1 [facility] (MEDICAID HMO) [id number] Juvenal Newcombe [id number] Juvenal Newcombe 12/05/2018 1 [facility] (MEDICAID HMO) [id number] Juvenal Newcombe [id number] Juvenal Newcombe Notes Date Note Type Note Provider Name and Address Organization Details Recorded Time 07/04/2018 text/html C/O bleeding in left eye seen by night patrol inspector H/O cat. Sx OU. 2016 and 2017. No prolbem in post op exam Evy Olson MD [address] [place], [address], [facility] - COUNT [facility]CLUDES [facility] 07/05/2018 10:07:17 07/25/2018 text/html complaint of red spot in the right eye since 3 days, no pain no discharge no previous injury.History of diabetic retinopathy in both eyes Evy Olson MD [address] [place], [address], [facility] - SI 07/25/2018 17:28:04 12/05/2018 text/html F/U DRP. c/o decreased vision in left eye Evy Olson MD [address] [place], [address], [facility] - SI 12/05/2018 20:02:58
[2024-10-24 18:10] VITALS: BP 102/72; PULSE 103; RESP 18; TEMP 36.3; O2SAT 99
--- OUTSIDE RECORDS SUMMARY | 2024-10-24 20:58 | XMS_ITS | Encounter Summary ---
Author Organization [facility] Address [address], [place] [address] Phone Care Team Providers Care Laborer Cheesemaking Name Role Phone Unavailable Primary Care Provider Unavailabl e Reason for Visit * Reason Comments Med Refill Encounter Details Date Type Department Care Team (Late st Contact Info) Description 02/24/2020 Refill [facility] [address] [address] Leandro Reyes MD [address] [address] Social History Tobacco Use Types [...]
--- OUTSIDE RECORDS SUMMARY | 2024-10-24 20:58 | XMS_ITS | Referral Summary ---
Author Organization [facility] Address [address] [facility] [place] [address] Care Team Providers Care Manager Pediatric Name Role Phone Aditya Castro Primary Care Provider Unavailab le Source Comments [facility],non-owned Affiliates and Associated Physician Practices is amultiple site organization consisting of ambulatory clinics and hospital sitesin [place], [place] and [place]. This disclosure is being madepursuant to the Care Everywhere program and may not contain all information available regarding this patient. Last updated 18.[facility] Allergies Active Allergy Reactions Criticality Noted Date [...] needed 01/25/2019 Active vitamin D, ergocalciferol, (DRISDOL) 08057 units capsule Take 50,000 Units by mouth [...] fluticasone propionate (FLONASE) 50 MCG/ACT nasal spray [place] 1 spray into each nostril once daily 04/24/2019 Active epoetin (PROCRIT) 97263 UNIT/ML injection Inject subcutaneously every 14 days [...] were not included. Juvenal Garvin 1970 Referring Automatic Fancy Machine Operator: Leandro Reyes Dialysis Info: Type: PD Time: 160 days (11/05/2019) Blood Type: A Body mass index is 37.8 kg/m . ALERTS Blackjack Supervisor: Vashti Lizama NP Past Medical History: Diagnosis Date Anemia Arthritis Arthropathy osteo. back and knees see Dr. Cierra ELIAS (coronary artery disease) Community acquired pneumonia 2017 [facility] hospitalized with double pneumonia Congestive heart failure Coronary artery disease Diabetes mellitus type 1 teens dx when he was 13. Insulin since he was dx. Insulin pump currently with dexacom. Vashti Lizama RN CLINICAL DOCUMENTATION is dinkey operator slate. DM (diabetes mellitus) TYPE 1 DVT (deep venous thrombosis) 2017 [facility]. ESRD on peritoneal dialysis Gout History of blood transfusion 2017 during admission for [place] HLD (hyperlipidemia) HTN (hypertension) Hypercholesteremia 5 years on med Hypertension 30's on medications. Kidney disease Myocardial infarction 2017 [facility]. Stent x1 placed. Neuropathy feet Obstructive [...] file Gets together: Not on file Attends church service: Not on file Active member of [...] 07/02/2020: Committee Discussion Details: Pt brought to [facility] to discuss his cardiac workup. [...] stress. Stress ejection fraction estimated at 83%. [facility]: 08/26/2019 NM exercise Stress: 04/16/2019 04/17/2017 [...] Impression: It is the impression of this manager social responsibility that Juvenal Garvin has several positive factors [...] advised of safety concerns regarding immunosuppressants. Plan: ceramic worker to provide supportive services as needed. Patient appears to be a reasonable candidate for transplant from a psychosocial perspective. -Post transplant arrangement forms are needed prior to being listed. Psychiatric Consult Recommended: No Transplant Anesthesia Attending: Radha Roper LCSW RD:05/14/2020 BMI= 40.0, Class [...] Comments Blood Pressure 140/60 07/13/2020 1:30 PM BOX SPRING MAKER Pulse 65 07/13/2020 1:30 PM BOX SPRING MAKER Temperature 36.1 C (97 F) 07/13/2020 1:30 PM BOX SPRING MAKER Respiratory Rate 20 07/13/2020 1:30 PM BOX SPRING MAKER Oxygen Saturation 95% 07/13/2020 1:30 PM BOX SPRING MAKER Inhaled Oxygen Concentration - - Weight 134.3 kg (296 lb) 07/13/2020 1:30 PM BOX SPRING MAKER Height 176.5 cm (5' 9.5 ) 07/13/2020 1:30 PM BOX SPRING MAKER Body Mass Index 43.08 07/13/2020 1:30 PM BOX SPRING MAKER Plan of Treatment Not on file Procedures [...] ve Non-react bianca 05/14/2020 11:49 AM CDT [facility] Comment:Neither HIV-1 p24 An tigen nor HIV-1/HIV-2 Antibodies are detected. Blood BLOOD SPECIMEN / Unknown Lab Venipuncture / Unknown 05/14/2020 10:18 AM CDT 05/14/2020 10:57 AM CDT Glenny Martin MD LAB - HEMATOLOG Y ORDERABLES [facility] [address] [place] [address], [facility] [phone] * (ABNORMAL) COMPREHENSIVE METABOLIC PANEL (05/14/2020 10:18 AM [facility]) BUN 65(H) 7 - 26 mg/dL 05/14/2020 11:41 AM [facility] Creatinine 5.6(H) 0.6 - 1.2 mg/dL 05/14/2020 11:41 AM [facility] Sodium 142 136 - 145 mmol/L 05/14/2020 11:41 AM [facility] Potassium 3.7 3.5 - 4.5 mmol/L 05/14/2020 11:41 AM [facility] Chloride 101 98 - 107 mmol/L 05/14/2020 11:41 AM [facility] CO2 28 22 - 29 mmol/L 05/14/2020 11:41 AM [facility] Glucose 162(H) 70 - 115 mg/dL 05/14/2020 11:41 AM [facility] Calcium 9.0 8.4 - 10.2 mg/dL 05/14/2020 11:41 AM [facility] Protein Total 6.9 6.0 - 8.3 g/dL 05/14/2020 11:41 AM [facility] Albumin 3.7 3.4 - 5.0 g/dL 05/14/2020 11:41 AM [facility] Bilirubin Total 0.7 0.2 - 1.2 mg/dL 05/14/2020 11:41 AM [facility] Alkaline Phosphatase 140 40 - 150 Units/L 05/14/2020 11:41 AM [facility] ALT 43 0 - 55 Units/L 05/14/2020 11:41 AM [facility] AST 29 5 - 34 Units/L 05/14/2020 11:41 AM [facility] Anion Gap 17 8 - 18 05/14/2020 11:41 AM [facility] BUN/Creatinine Ratio 12 7 - 23 05/14/2020 11:41 AM [facility] Osmolality Calculated 316(H) 270 - 300 [...] ORDERABLES [facility] [address] [place] [address], [place] [phone] * HEPATITIS C ANTIBODY (05/14/2020 10:18 AM [...] ORDERABLES [facility] [address] [place] [address], [place] [phone] from Last 3 Months or Most Recently Relevant to Health Maintenance Insurance Payer Benefit Plan / Group Subscriber ID Effective Dates Phone Address Type AETNA MEDICARE ADV AETNA MEDICARE ADV HMO/PPO/PFFS [id number] Effective for all dates [address] [place] [address] Medicare-[facility] MEDICAID [facility] MEDICAID [facility] Effective for all dates [address] [place] [address] Medicaid AETNA MEDICARE ADV AETNA MEDICARE ADV HMO/PPO/PFFS [id number] Effective for all dates [address] [place] [address] Medicare-Sc naged Care MEDICAID [facility] MED[facility]ID [facility] Effective for all dates [address] [place] [address] Medicaid AETNA MEDICARE ADV AETNA MEDICARE ADV HMO/PPO/PFFS [id number] Effective for all dates [address] [place] [address] Medicare-Sc naged Care MEDICAID [facility] MEDICAID [facility] Effective for all dates [address] [place] [address] Medicaid MEDICARE S MEDICARE PART B [id number] 08/21/2019-Pres ent [address] [address] [place] [address] Medicare MEDICAID - OUT OF STATE MEDICAID [facility] PUBLIC AID [id number] 08/21/2019-Pres ent [address] [address] [place] [address] Medicaid MEDICARE MEDICARE PART A AND B [id number] 08/21/2019-Pres ent [address] [place] [address] [place] [id number] Effective for all dates [address] [address] [place] [address] Medicaid [place] Advance Directives * Full Code (Latest Code Status on File) Date Activated Date Inactivated Comments 11/22/2018 9:24 AM 11/23/2018 7:55 PM Care Teams Manager Pediatric Relationship Specialty Start Date End Date Aditya Castro Update Information PCP - General 03/06/19
--- OUTSIDE RECORDS SUMMARY | 2024-10-24 20:58 | XMS_ITS ---
Author Organization [facility] Address [address] [place] [address] Care Team Providers Care Street Sprinkler Name Role Phone Aditya Castro MD Primary Care Provider [phone] Alondra Lambert RN Unavailable [phone] Shannon Brock MD, [place] P. Unavailable [phone] Leandro Reyes MD Unavailable [phone] Transplant Episode Kidney Candidate [facility] ([place], [place]) [facility] Evaluation began on 05/10/2024 Marked as Active on 05/10/2024 Reason: Evaluation - Standard Kidney CoordinatorAlondra Lambert RN Fax: N/A Email: N/A Scores Score Value Updated Exceptions/Reas ons CPRA Not available EPTS (Calc) 78 10/24/2024 Care Team Name Role Phone Fax Email Alondra Lambert RN Kidney Coordinator [phone] N/A N/A Melany Kelly Primary Continuous Improvement Lead N/A N/A N/A Chris Richard Planting Machine Crewman N/A N/A N/A Events Pre-Transplant Referred: 03/06/2024 Evaluation began: 05/10/2024 Dialysis History Dialysis History Start End Type Comments Center 10/16/2019 Peritoneal [facility] Dialysis [facility] Information Center Phone Fax Address [facility] [phone] [address] [facility] [address] [facility] [address]
--- OUTSIDE RECORDS SUMMARY | 2024-10-24 20:58 | XMS_ITS | Encounter Summary ---
Author Organization [facility] Address [address], [place] [address] Phone Care Team Providers Care Ethologist Name Role Phone Unavailable Primary Care Provider Unavailabl e Reason for Visit * Reason Comments Med Refill Encounter Details Date Type Department Care Team (Late st Contact Info) Description 10/08/2019 Refill [facility] [address] [address] Leandro Reyes MD [address] [address] Social History Tobacco Use Types [...]
--- OUTSIDE RECORDS SUMMARY | 2024-10-24 20:58 | XMS_ITS | Clinical Summary ---
Author Organization [facility] Address [address] [facility] [place] [address] Care Team Providers Care Ferry Captain Name Role Phone Aditya Castro Primary Care Provider Unavailab le Source Comments [facility]non-owned Affiliates and Associated Physician Practices is amultiple site organization consisting of ambulatory clinics and hospital sitesin [place], [place], [place] and [place]. This disclosure is being madepursuant to the Care Everywhere program and may not contain all information available regarding this patient. Last updated 18.[facility] Allergies Active Allergy Reactions Criticality Noted Date [...] needed 01/25/2019 Active vitamin D, ergocalciferol, (DRISDOL) 60019 units capsule Take 50,000 Units by mouth [...] fluticasone propionate (FLONASE) 50 MCG/ACT nasal spray [place] 1 spray into each nostril once daily 04/24/2019 Active epoetin (PROCRIT) 55039 UNIT/ML injection Inject subcutaneously every 14 days [...] were not included. Juvenal Garvin 1970 Referring Business Education Instructor: Leandro Reyes Dialysis Info: Type: PD Time: 160 days (11/05/2019) Blood Type: A Body mass index is 37.8 kg/m . ALERTS Corporate Ethics Officer: Vashti Lizama NP Past Medical History: Diagnosis Date Anemia Arthritis Arthropathy osteo. back and knees see Dr. Cierra ELIAS (coronary artery disease) Community acquired pneumonia 2017 [facility] hospitalized with double pneumonia Congestive heart failure Coronary artery disease Diabetes mellitus type 1 teens dx when he was 13. Insulin since he was dx. Insulin pump currently with dexacom. Vashti Lizama HOSTESS PARTY SALES REPRESENTATIVE is education general manager. DM (diabetes mellitus) TYPE 1 DVT (deep venous thrombosis) 2017 [facility]. ESRD on peritoneal dialysis Gout History of blood transfusion 2017 during admission for [place] HLD (hyperlipidemia) HTN (hypertension) Hypercholesteremia 5 years on med Hypertension 30's on medications. Kidney disease Myocardial infarction 2017 [facility]. Stent x1 placed. Neuropathy feet Obstructive [...] file Gets together: Not on file Attends yarsanism service: Not on file Active member of [...] Discussion Details: Pt brought to [facility] to discuss his cardiac workup. Team reviewed [...] stress. Stress ejection fraction estimated at 83%. [facility]: 08/26/2019 NM exercise Stress: 04/16/2019 04/17/2017 [...] Impression: It is the impression of this oncology social work that Juvenal Garvin has several positive factors [...] advised of safety concerns regarding immunosuppressants. Plan: food production worker to provide supportive services as needed. Patient appears to be a reasonable candidate for transplant from a psychosocial perspective. -Post transplant arrangement forms are needed prior to being listed. Psychiatric Consult Recommended: No Transplant Industrial Chemist: Radha Roper LCSW RD:05/14/2020 BMI= 40.0, Class [...] Comments Blood Pressure 140/60 07/13/2020 1:30 PM CAN DRYER Pulse 65 07/13/2020 1:30 PM CAN DRYER Temperature 36.1 C (97 F) 07/13/2020 1:30 PM CAN DRYER Respiratory Rate 20 07/13/2020 1:30 PM CAN DR[facility]ER Oxygen Saturation 95% 07/13/2020 1:30 PM CAN DRYER Inhaled Oxygen Concentration - - Weight 134.3 kg (296 lb) 07/13/2020 1:30 PM CAN DRYER Height 176.5 cm (5' 9.5 ) 07/13/2020 1:30 PM CAN DR[facility]ER Body Mass Index 43.08 07/13/2020 1:30 PM CAN DR[facility]ER Plan of Treatment Health Maintenance Due Date [...] y 1 & 2 Non-reacti ve Non-react biacna 05/14/2020 11:49 AM CDT [facility] Comment:Neither HIV-1 p24 An tigen nor HIV-1/HIV-2 Antibodies are detected. Blood BLOOD SPECIMEN / Unknown Lab Venipuncture / Unknown 05/14/2020 10:18 AM CDT 05/14/2020 10:57 AM CDT Glenny Martin MD LAB - HEMATOLOG Y ORDERABLES [facility] [address] [place] [address] [phone] * (ABNORMAL) COMPREHENSIVE METABOLIC PANEL (05/14/2020 10:18 AM [facility]) BUN 65(H) 7 - 26 mg/dL 05/14/2020 11:41 AM [facility] Creatinine 5.6(H) 0.6 - 1.2 mg/dL 05/14/2020 11:41 AM [facility] Sodium 142 136 - 145 mmol/L 05/14/2020 11:41 AM [facility] Potassium 3.7 3.5 - 4.5 mmol/L 05/14/2020 11:41 AM [facility] Chloride 101 98 - 107 mmol/L 05/14/2020 11:41 AM [facility] CO2 28 22 - 29 mmol/L 05/14/2020 11:41 AM [facility] Glucose 162(H) 70 - 115 mg/dL 05/14/2020 11:41 AM [facility] Calcium 9.0 8.4 - 10.2 mg/dL 05/14/2020 11:41 AM [facility] Protein Total 6.9 6.0 - 8.3 g/dL 05/14/2020 11:41 AM [facility] Albumin 3.7 3.4 - 5.0 g/dL 05/14/2020 11:41 AM [facility] Bilirubin Total 0.7 0.2 - 1.2 mg/dL 05/14/2020 11:41 AM [facility] Alkaline Phosphatase 140 40 - 150 Units/L 05/14/2020 11:41 AM [facility] ALT 43 0 - 55 Units/L 05/14/2020 11:41 AM [facility] AST 29 5 - 34 Units/L 05/14/2020 11:41 AM [facility] Anion Gap 17 8 - 18 05/14/2020 11:41 AM [facility] BUN/Creatinine Ratio 12 7 - 23 05/14/2020 11:41 AM [facility] Osmolality Calculated 316(H) 270 - 300 mOsm/kg 05/14/2020 11:41 AM [facility] Albumin/Globulin Ratio 1.2 1.1 - 2.3 05/14/2020 11:41 AM CDT [facility] eGFR 11(L) >60 mL/min/1.7 3 m2 05/14/2020 11:41 AM CDT [facility] Blood BLOOD SPECIMEN / Unknown Lab Venipuncture / Unknown 05/14/2020 10:18 AM CDT 05/14/2020 10:55 AM CDT Glenny Martin MD LAB - CHEMISTRY ORDERABLES [facility] [address] [place] [address], [place] [phone] * HEPATITIS C ANTIBODY (05/14/2020 10:18 AM CDT) [facility] Hepatitis C Antibody Non-react bianca Non-reac tive 05/14/2020 11:49 AM CDT [facility] Comment:Hepatitis C Antibody screen [...] Glenny Martin MD LAB - CHEMISTRY ORDERABLES [address] [address], [place] [phone] from Last 3 Months or Most Recently Relevant to Health Maintenance Insurance Payer Benefit Plan / Group Subscriber ID Effective Dates Phone Address Type AETNA MEDICARE ADV AETNA MEDICARE ADV HMO/PPO/PFFS [id number] Effective for all dates [address] [place] [address] Medicare-[facility] MEDICAID [facility] MEDICAID [facility] Effective for all dates [address] [facility] [address] [place] [address] Medicaid AETNA MEDICARE ADV AETNA MEDICARE ADV HMO/PPO/PFFS [id number] Effective for all dates [address] [place] [address] Medicare-Ks naged Care MEDICAID [facility] MEDICAID [facility] Effective for all dates [address] [place] [address] Medicaid AETNA MEDICARE ADV AETNA MEDICARE ADV HMO/PPO/PFFS [id number] Effective for all dates [address] [place] [address] Medicare-Ma naged Care MEDICAID [facility] MEDICAID [facility] Effective for all dates [address] [place] [address] Medicaid MEDICARE [place] MEDICARE PART B [id number] 08/21/2019-Pres ent [address] [address] [place] [address] Medicare MEDICAID - OUT OF [facility] MEDICAID - [place] PUBLIC AID [id number] 08/21/2019-Pres ent [address] [address] [place] [address] Medicaid MEDICARE MEDICARE PART A AND B [id number] 08/21/2019-Pres ent [address] [place] [address] Medicare MED[place] - [place] MEDICAID [id number] Effective for all dates [address] [address] [place] [address] Medicaid [place] Advance Directives * Full Code (Latest Code Status on File) Date Activated Date Inactivated Comments 11/22/2018 9:24 AM 11/23/2018 7:55 PM Care Teams Ferry Captain Relationship Specialty Start Date End Date Aditya Castro Update Information PCP - General 03/06/19
--- OUTSIDE RECORDS SUMMARY | 2024-10-24 20:58 | XMS_ITS | Clinical Summary ---
Author Organization [facility] Address [address] [place] [address] Care Team Providers Care Dump Operator Name Role Phone Aditya Castro MD Primary Care Provider [phone] Allergies Active Allergy Reactions Criticality Noted Date Comments Allopurinol Shortness of Breath/Wheezing,Othe r (See Comments) High 07/31/2019 Shuts my kidneys down per patient. Chlorhexidine Other (See Comments) High 06/29/2022 Skin peels all over and becomes tender Iodinated Contrast Media Rash High 07/10/2017 Ticagrelor Rash High 05/04/2017 Medications isosorbide mononitrate (IMDUR) 30 mg Extended Release 24 hour tablet Take 30 mg by mouth daily lens generating machine tender. Active clopidogrel (PLAVIX) 75 mg Tablet Take [...] 50,000 Units by mouth. Active Insulin [place], Disposable, (TRUEPLUS PEN NEEDLE) 31 gauge x [...] (06/29/2022): Added automatically from request for surgery [id number] Right upper quadrant pain 09/24/2020 Pre-transplant evaluation for kidney transplant 03/24/2020 Overview (06/29/2022): Images from the original note were not included. Juvenal Daigle 1970 Referring Stars Coordinator: Leandro Reyes Dialysis Info: Type: PD Time: 160 days (11/05/2019) Blood Type: A Body mass index is 37.8 kg/m . ALERTS Geographic Information Systems Engineer: Vashti Lizama NP Past Medical History: Diagnosis Date Anemia Arthritis Arthropathy osteo. back and knees see Dr. Norton CAD (coronary artery disease) Community acquired pneumonia 2017 [facility] hospitalized with double pneumonia Congestive heart failure Coronary artery disease Diabetes mellitus type 1 teens dx when he was 13. Insulin since he was dx. Insulin pump currently with dexacom. Vashti Lizama NP is financial services professional. DM (diabetes mellitus) TYPE 1 DVT (deep venous thrombosis) 2017 [facility]. ESRD on peritoneal dialysis Gout History of blood transfusion 2017 during admission for [place] HLD (hyperlipidemia) HTN (hypertension) Hypercholesteremia 5 years on med Hypertension 30's on medications. Kidney disease Myocardial infarction 2017 [facility]. Stent x1 placed. Neuropathy feet Obstructive [...] 07/02/2020: Committee Discussion Details: Pt brought to [facility] to discuss his cardiac workup. [...] Impression: It is the impression of this bilingual social worker that Juvenal Daigle has several [...] advised of safety concerns regarding immunosuppressants. Plan: dry house worker to provide supportive services as needed. Patient appears to be a reasonable candidate for transplant from a psychosocial perspective. -Post transplant arrangement forms are needed prior to being listed. 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
--- OUTSIDE RECORDS SUMMARY | 2024-10-24 20:58 | XMS_ITS | Continuity of Care Document ---
Author Organization [facility] Address [address] [place] [address] [place] [address] Phone Care Team Providers Care Attache Name Role Phone Carlos Garcia Unavailable Unavailable Advance Directives Directive Yes / No Effective Date File Name No Information Encounters Encounter Description Practice Location Reason(s) For Visit Diagnoses Date Provider Providers Copied on Encounter [facility], [address], [place], [place], [id number], [place] tel:[phone] [facility] No Information Radha Gonzalez. [address] [place], [place], [facility], [place]. tel:[phone] Referring Provider: Yannick Remy, [facility] [address], [place], [place], [facility]. tel:[phone] Family History Family Member Type Diagnosis Age At Onset No Information Payers Payer name Insurance type Covered constitution party ID Authoriza tion(s) Medicaid [facility] [id number] Social History Type Description Quantity Date Captured [...]
--- OUTSIDE RECORDS SUMMARY | 2024-10-24 20:58 | XMS_ITS | Patient Health Summary ---
Author Organization [facility] Address [address] [place] [address] Care Team Providers Care Pest Control Supervisor Name Role Phone Aditya Castro Primary Care Provider Unavailab le Note from [facility],non-owned Affiliates and Associated Physician Practices is amultiple site organization consisting of ambulatory clinics and hospital sitesin [place], [place], [place] and [place]. This disclosure is being madepursuant to the Care Everywhere program and may not contain all information available regarding this patient. Last updated 18.[facility] Allergies * Allopurinol(Other) -High Criticality [...] as needed * vitamin D, ergocalciferol, (DRISDOL) 96065 units capsule(Started 02/13/2019) Take 50,000 Units by [...] propionate (FLONASE) 50 MCG/ACT nasal spray(Started 04/24/2019) [place] 1 spray into each nostril once daily * epoetin (PROCRIT) 33112 UNIT/ML injection Inject subcutaneously every 14 days [...] Comments Blood Pressure 140/60 07/13/2020 1:30 PM PENSION CONSULTANT Pulse 65 07/13/2020 1:30 PM PENSION CONSULTANT Temperature 36.1 C (97 F) 07/13/2020 1:30 PM PENSION CONSULTANT Respiratory Rate 20 07/13/2020 1:30 PM PENSION CONSULTANT Oxygen Saturation 95% 07/13/2020 1:30 PM PENSION CONSULTANT Inhaled Oxygen Concentration - - Weight 134.3 kg (296 lb) 07/13/2020 1:30 PM PENSION CONSULTANT Height 176.5 cm (5' 9.5 ) 07/13/2020 1:30 PM PENSION CONSULTANT Body Mass Index 43.08 07/13/2020 1:30 PM PENSION CONSULTANT Procedures * CARDIAC EKG ORDER(Performed 05/18/2020) * [...] Pre-transplant evaluation for kidney transplant * PROTHROMBIN [id number] PANEL(Performed 05/14/2020) Performed for Pre-transplant evaluation for [...] cause, unspecified chronicity, unspecified site, [place], unspecifiedtype ([facility]) * CARDIAC PROCEDURE ORDER(Performed 11/27/2018) [...] complication, with long-term current use of insulin (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) * CARDIAC CATH CONSULT(Performed 11/22/2018) [...] annulus calcifications. Dictated by Ash Moreira MD (human resources vice president). I, Dr. HANNAH SPENCE have personally reviewed and interpreted this examination/study. This report was electronically signed by HANNAH SPECNE on 05/14/2020 5:03 PM . Narrative 05/14/2020 [...] annulus calcifications. Dictated by Ash Moreira MD (human resources vice president). I, Dr. HANNAH SPENCE have [...] Resolution DRB1-1 04 05/29/2020 7:59 AM CDT [facility] ([facility]) DR DQ Low Resolution DRB1-2 11 05/29/2020 7:59 AM CDT [facility] ([facility]) DR DQ Low Resolution DQB1-1 03 (DQ7) 05/29/2020 7:59 AM CDT [facility] ([facility]) DR DQ Low Resolution DQB1-2 03 (DQ8) 05/29/2020 7:59 AM CDT [facility] ([facility]) DR DQ Low Resolution DRB3-1 02 05/29/2020 7:59 AM CDT [facility] ([facility]) DR DQ Low Resolution DRB3-2 Negative 05/29/2020 7:59 AM CDT [facility] ([facility]) DR DQ Low Resolution DRB4-1 01 05/29/2020 7:59 AM CDT [facility] ([facility]) DR DQ Low Resolution DRB4-2 Negative 05/29/2020 7:59 AM CDT [facility] ([facility]) DR DQ Low Resolution DRB5-1 Negative 05/29/2020 7:59 AM CDT [facility] ([facility]) DR DQ Low Resolution DRB5-2 Negative 05/29/2020 7:59 AM CDT [facility] ([facility]) DR DQ Low Resolution Methodology SSOP 05/29/2020 7:59 AM CDT [facility] ([facility]) Comment DR DQ Low Resolution - 05/29/2020 7:59 AM CDT [facility] ([facility]) DR DQ Low Resolution test date 05/28/2020 05/29/2020 7:59 AM CDT [facility] ([facility]) Comment: This test was developed and its performance characteristics determined by the [facility]. It has not been cleared or [...] high complexity clinical laboratory testing. CLIA ID# [id number] Performed at: [facility], [address] [place] [address] Insurance Executive: Jarrod Chin MD, Blood BLOOD SPECIMEN / Unknown Lab Venipuncture / Unknown 05/14/2020 10:18 AM CDT 05/14/2020 10:52 AM CDT Glenny Martin MD LAB - BLOOD BAN K ORDERABLES [facility] ([facility]) [address] [place] [address], [facility] * HLA TYPING DNA LOW RESOLUTION A,B,C (05/14/2020 10:18 AM CDT) ABC DNA A1 03 05/29/2020 7:59 AM CDT [facility] ([facility]) ABC DNA A2 29 05/29/2020 7:59 AM CDT [facility] ([facility]) ABC DNA B1 07 05/29/2020 7:59 AM CDT [facility] ([facility]) ABC DNA B2 44 05/29/2020 7:59 AM CDT [facility] ([facility]) ABC DNA BW1 6 05/29/2020 7:59 AM CDT [facility] ([facility]) ABC DNA BW2 4 05/29/2020 7:59 AM CDT [facility] ([facility]) ABC DNA C1 07 05/29/2020 7:59 AM CDT [facility] ([facility]) ABC DNA C2 - 05/29/2020 7:59 AM CDT [facility] ([facility]) ABC DNA Methodology SSOP 05/29 7:59 AM CDT [facility] ([facility]) Comment ABC DNA - 0 7:59 AM CDT [facility] ([facility]) ABC DNA Test Date 0 05/29/2020 7:59 AM CDT [facility] ([facility]) Comment: This test was developed and its performance characteristics determined by the [facility]. It has not been cleared or [...] high complexity clinical laboratory testing. CLIA ID# [id number] Performed at: [facility], [address] [place] [address] Insurance Executive: Jarrod Chin MD, Blood BLOOD SPECIMEN / Unknown Lab Venipuncture / Unknown 05/14/2020 10:18 AM CDT 05/14/2020 10:52 AM CDT Glenny Martin MD LAB - BLOOD BAN K ORDERABLES Performing Organization Address [facility] de Phone Number [facility] ([facility]) [address] [place] [address], [place] * HLA ANTIBODY SCREEN LUM CLASS 2 ID (05/14/2020 10:18 AM CDT) % PRA 90 05/29/2020 7:59 AM CDT [facility] ([facility]) Class 2 LUM Specificity - 05/29/2020 7:59 AM CDT [facility] ([facility]) Class 2 LUM Test Date 0 05/29/2020 7:59 AM CDT [facility] ([facility]) Comment: This test was developed and its performance characteristics determined by the [facility]. It has not been cleared or [...] high complexity clinical laboratory testing. CLIA ID# [id number] Performed at: [facility], [address] [place] [address] Insurance Executive: Jarrod Chin MD, Blood BLOOD SPECIMEN / Unknown Lab Venipuncture / Unknown 05/14/2020 10:18 AM CDT 05/14/2020 10:52 AM CDT Glenny Martin MD LAB - BLOOD BAN K ORDERABLES Performing Organization Address City/[facility]/ZIP Co de Phone Number [facility] ([facility]) [address] [place] [address], [place] * HLA ANTIBODY SCREEN LUM CLASS 1 ID (05/14/2020 10:18 AM CDT) % PRA 4 05/29/2020 7:59 AM CDT [facility] ([facility]) Class 1 LUM Specificity - 05/29/2020 7:59 AM CDT [facility] ([facility]) Class 1 LUM Test Date 0 05/29/2020 7:59 AM CDT [facility] ([facility]) Comment: This test was developed and its performance characteristics determined by the [facility]. It has not been cleared or [...] high complexity clinical laboratory testing. CLIA ID# [id number] Performed at: [facility], [address] [place] [address] Insurance Executive: Jarrod Chin MD, Blood BLOOD SPECIMEN / Unknown Lab Venipuncture / Unknown 05/14/2020 10:18 AM CDT 05/14/2020 10:52 AM CDT Glenny Martin MD LAB - BLOOD BAN K ORDERABLES [facility] ([facility]) [address] [place] [address], [facility] * HIV-1 HIV-2 ANTIGEN/ANTIBODY (05/14/2020 10:18 AM CDT) HIV Antigen/Antibod y 1 & 2 Non-reacti ve Non-react bianca 05/14/2020 11:49 AM CDT [facility] Comment:Neither HIV-1 p24 An tigen nor HIV-1/HIV-2 Antibodies are detected. Blood BLOOD SPECIMEN / Unknown Lab Venipuncture / Unknown 05/14/2020 10:18 AM CDT 05/14/2020 10:57 AM CDT Glenny Martin MD LAB - HEMATOLOG Y ORDERABLES [place] [address] [place] [address] [phone] * CANNABINOID SCREEN BLOOD (05/14/2020 10:18 AM CDT) Marijuana Metabolites Negative 05/17/2020 12:06 AM CDT [facility] ([facility]) Comment:REFERENCE RANGE: thr shold: 5 ng/mL Specimen Type Comment 05/17/2020 12:06 AM CDT [facility] ([facility]) Comment: WHOLE BLOOD This specimen was screened by immunoassay at the thresholds listed above. Presumptive positive results have not been confirmed by an alternate method; results are intended for clinical medical purposes. Please contact the laboratory if confirmatory testing is desired. This test was developed and its performance characteristics determined by [facility] It has not been cleared or approved by the Food and Drug Administration. Blood BLOOD SPECIMEN / Unknown Lab Venipuncture / Unknown 05/14/2020 10:18 AM CDT 05/14/2020 10:53 AM CDT Narrative [facility] ([facility]) - 05/17/2020 12:06 AM CDT Performed at: [facility] [address] [place] [phone] Insurance Executive: Radha Callahan [facility], Phone: [phone] Glenny Martin MD LAB - CHEMISTRY ORDERABLES Performing Organization Address [facility]/ZIP Co de Phone Number [facility] ([facility]) [address] [place] [address] * COCAINE METABOLITE QUANT (05/14/2020 10:18 AM CDT) Cocaine and Metabolite Blood <20 ng/mL 05/17/2020 11:07 PM CDT [facility] ([facility]) Comment: INTERPRETIVE INFORMATION: Cocaine Metabolite, Serum or Plasma, Quantitative Methodology: Quantitative Gas Chromatography- Mass Spectrometry Positive cutoff: 20 ng/mL For medical purposes only; not valid for forensic use. The concentration value must be greater than or equal to the cutoff to be reported as positive. Interpretive questions should be directed to the laboratory. Test developed and characteristics determined by [facility]. See Compliance Statement B: [email or web address] Performed By: [facility] [address] [place] [address] [employer] Fabricator: Valerie Mast MD Blood BLOOD SPECIMEN / Unknown Lab Venipuncture / Unknown 05/14/2020 10:18 AM CDT 05/14/2020 10:55 AM CDT Glenny Martin MD LAB - CHEMISTRY ORDERABLES Performing Organization Address City/[facility] Co de Phone Number [facility] [employer] ([facility]) [address] [place], [place] [address] * SYPHILIS ANTIBODY CASCADING REFLEX (05/14/2020 10:18 AM CDT) [facility] Treponema pallidum Antibody Non-react bianca Non-react bianca 05/14/2020 11:47 AM CDT [facility] Comment: No Laboratory evidence of syphilis infection. Note: Circulating antibodies may be low or undetectable in early infection. If recent exposure is suspected, re-draw sample in 2-4 weeks and repeat testing. Blood BLOOD SPECIMEN / Unknown Lab Venipuncture / Unknown 05/14/2020 10:18 AM CDT 05/14/2020 10:55 AM CDT Glenny Martin MD LAB - SEROLOGY ORDERABLES Performing Organization Address City/[facility] Co de Phone Number [facility] [address] [address], [facility] [phone] * AMPHETAMINE BLOOD CONFIRMATION (05/14/2020 10:18 AM CDT) Pathologist [facility] Amphetamines Confirmation <20 ng/mL 05/20/2020 12:29 PM CDT [facility] [employer] ([facility]) Comment: INTERPRETIVE INFORMATION: Amphetamines, Serum or [...] laboratory. Test developed and characteristics determined by [facility]. See Compliance Statement B: [email or web address]/CS Methamphetamine Confirmation <20 ng/mL 05/20/2020 12:29 PM CDT [facility] ([facility]) MDA Confirmation <20 ng/mL 05/20/20 20 12:29 PM CDT [facility] ([facility]) MDMA Confirm <20 ng/mL 05/20/2020 12:29 PM CDT [facility] ([facility]) MDEA Confirmation <20 ng/mL 020 12:29 PM CDT [facility] ([facility]) Comment: Performed By: [facility] [address] [place] [address] [employer] Fabricator: Valerie Mast MD Blood BLOOD SPECIMEN / Unknown Lab Venipuncture / Unknown 05/14/2020 10:18 AM CDT 05/14/2020 10:57 AM CDT Glenny Martin MD LAB - CHEMISTRY ORDERABLES [facility] ([facility]) [address] * (ABNORMAL) PTH INTACT ([facility]) (05/14/2020 10:18 AM CDT) [facility] PTH Intact 653.3(H) 8.0 - 77.0 pg/mL 05/14/2020 11:34 AM CDT [facility] Blood BLOOD SPECIMEN / Unknown Lab Venipuncture / Unknown 05/14/2020 10:18 AM CDT 05/14/2020 10:55 AM CDT Glenny Martin MD LAB - CHEMISTRY ORDERABLES [address] [address], [facility] [phone] * OPIATES BLOOD (05/14/2020 10:18 AM CDT) [facility] Opiates Screen Negative 05/17/2020 12:06 AM CDT [facility] ([facility]) Comment:REFERENCE RANGE: thr shold: 10 ng/mL Oxycodone Screen Negative 05/17/20 12:06 AM CDT [facility] ([facility]) Comment:REFERENCE RANGE: thr shold: 10 ng/mL Specimen Type Comment 05/17/2020 12:06 AM CDT [facility] ([facility]) Comment: WHOLE BLOOD This specimen was [...] AM CDT 05/14/2020 10:53 AM CDT Narrative [facility] ([facility]) - 05/17/2020 12:06 AM CDT Performed at: [facility] [employer] [address] [id number] Insurance Executive: Radha Callahan [facility], Phone: [phone] Glenny Martin MD LAB - CHEMISTRY ORDERABLES Performing Organization Address [facility] Co de Phone Number [facility] ([facility]) [address] [place] [address] * (ABNORMAL) URIC ACID BLOOD (05/14/2020 10:18 AM CDT) Only the most recent of2 resultswithin the time period is included. Uric Acid 8.4(H) 2.6 - 7.2 mg/dL 05/14/2020 11:41 AM CDT [facility] Blood BLOOD SPECIMEN / Unknown Lab Venipuncture / Unknown 05/14/2020 10:18 AM CDT 05/14/2020 10:55 AM CDT Glenny Martin MD LAB - CHEMISTRY ORDERABLES Performing Organization Address City/[facility]/ZIP Co de Phone Number [address] [address], [facility] [phone] * PROTHROMBIN [id number] PANEL (05/14/2020 10:18 AM CDT) [facility] Signature Prothrombin [id number] Negative 05/21/2020 8:19 PM CDT [facility] ([facility]) Comment: Indication for testing: Assess genetic risk for thrombosis. NEGATIVE: The Factor II, prothrombin F33315C mutation, was not detected. Other causes of [...] Cui, Ph.D. BACKGROUND INFORMATION: Prothrombin (F2) c.*97G>A (B58091C) Pathogenic Variant CHARACTERISTICS: The Factor II, c.*97G>A (D58764E) pathogenic variant is a common genetic risk [...] CAUSE: Homozygosity or heterozygosity for F2 c.*97G>A (I90725I). PATHOGENIC VARIANT TESTED: F2 c.*97G>A (F85876X). CLINICAL SENSITIVITY FOR VENOUS THROMBOSIS: Approximately 10 percent. METHODOLOGY: Polymerase chain reaction and fluorescence monitoring. ANALYTICAL SENSITIVITY AND SPECIFICITY: 99 percent. LIMITATIONS: Diagnostic errors can occur due to rare sequence variations. F2 gene variants, other than c.*97G>A (V06638Z), will not be detected. This test was developed and its performance characteristics determined by [facility]. It has not been cleared or approved by the [place] Food and Drug Administration. This test was performed in a CLIA certified laboratory and is intended for clinical purposes. Counseling and informed consent are recommended for genetic testing. Consent forms are available online. Performed by [facility], [address] [place] [address] [email or web address], Valerie Mast MD, Lab. Director Source PT [id number] PCR Whole Blood 05/21/2020 8:19 PM CDT [facility] [employer] ([facility]) Blood BLOOD SPECIMEN / Unknown Lab Venipuncture / Unknown 05/14/2020 10:18 AM CDT 05/14/2020 10:48 AM CDT Sourav Moscoso MD LAB - COAGULATION OR DERABLES [facility] [employer] ([facility]) [address] [place] [address], [facility] * (ABNORMAL) PROTEIN S ANTIGEN (05/14/2020 10:18 AM CDT) [facility] Protein S Antigen Total 177(H) 60 - 150 % 05/16/2020 2:07 AM CDT [facility] ([facility]) Comment: This test was developed and its performance characteristics determined by [facility]. It has not been cleared or approved by the Food and Drug Administration. Total Protein S Antigen is an acute phase reactant protein and can be elevated in inflammatory states. Protein S Free 179(H) 57 - 157 % 05/16/2020 2:07 AM CDT [facility] ([facility]) Comment: This test was developed and its performance characteristics determined by [facility]. It has not been cleared or approved by the Food and Drug Administration. Blood BLOOD SPECIMEN / Unknown Lab Venipuncture / Unknown 05/14/2020 10:18 AM CDT 05/14/2020 10:48 AM CDT Narrative [facility] ([facility]) - 05/16/2020 2:07 AM CDT Performed at: [address] [place] [id number] Insurance Executive: Con Grimaldo MD, Phone: [phone] Sourav Moscoso MD LAB - COAGULATION OR DERABLES [facility] ([facility]) [address] [place] [address] * STRONGYLOIDES ANTIBODY IGG (05/14/2020 10:18 AM CDT) Strongyloides Antibody IgG 0.2 <=0.9 IV 05/17/2020 10:58 PM CDT [facility] ([facility]) Comment: INTERPRETIVE INFORMATION: Strongyloides Ab, IgG [...] also result in false-positive results. Performed By: [facility] [address] [place] [address] [employer] Fabricator: Valerie Mast MD Blood BLOOD SPECIMEN / Unknown Lab Venipuncture / Unknown 05/14/2020 10:18 AM CDT 05/14/2020 10:55 AM CDT Glenny Martin MD LAB - SEROLOGY ORDERABLES Performing Organization Address [facility] de Phone Number [facility] ([facility]) [address] * FACTOR V LEIDEN MUTATION PANEL (05/14/2020 10:18 AM CDT) Factor V Leiden Source Whole Blood 05/21/2020 4:02 PM CDT [facility] ([facility]) Factor V Leiden PCR/FRET Negative 05/21/2020 4:02 PM CDT [facility] [employer] ([facility]) Comment: Indication for testing: Assess genetic risk for thrombosis. NEGATIVE: The factor V Leiden variant, c.1601G>A; p.[id number], was not detected. This does not exclude [...] function in the F5 gene variant c.1601G>A (p.[id number]). Legacy nomenclature: [id number] (1691G>A) CLINICAL SENSITIVITY: 20-50 percent of individuals with an isolated VTE have the FVL variant. METHODOLOGY: Polymerase chain reaction and fluorescence monitoring. ANALYTICAL SENSITIVITY AND SPECIFICITY: 99 percent. LIMITATIONS: Diagnostic errors can occur due to rare sequence variations. F5 gene mutations, other than p.[id number], will not be detected. This test was developed and its performance characteristics determined by [facility]. It has not been cleared or approved by the US Food and Drug Administration. This test was performed in a CLIA certified laboratory and is intended for clinical purposes. Counseling and informed consent are recommended for genetic testing. Consent forms are available online. Performed by [facility], [address] [facility] [address] [email or web address], Valerie Mast MD, Lab. Director Blood BLOOD SPECIMEN / Unknown Lab Venipuncture / Unknown 05/14/2020 10:18 AM CDT 05/14/2020 10:49 AM CDT Sourav Moscoso MD LAB - COAGULATION OR DERABLES Performing Organization Address [facility] Co de Phone Number [facility]) [address] * CARDIOLIPIN ANTIBODY IGM (05/14/2020 10:18 AM CDT) [facility] Cardiolipin Antibody IgM 0 0 - 12 MPL 05/17/2020 12:33 AM CDT [facility] ([facility]) Comment: INTERPRETIVE INFORMATION: Anti-Cardiolipin IgM 0-12 [...] other criteria phospholipid antibody tests. Performed By: [facility] [address] [place] [address] [employer] Fabricator: Valerie Mast MD Blood BLOOD SPECIMEN / Unknown Lab Venipuncture / Unknown 05/14/2020 10:18 AM CDT 05/14/2020 10:57 AM CDT Sourav Moscoso MD LAB - SEROLOGY ORDER ROVERTO Performing Organization Address [facility]/ZIP Co de Phone Number [facility] ([facility]) [address] * CARDIOLIPIN ANTIBODY IGG (05/14/2020 10:18 AM CDT) Cardiolipin Antibody IgG 2 0 - 14 GPL 05/17/2020 12:32 AM CDT [facility] [employer] ([facility]) Comment: INTERPRETIVE INFORMATION: Anti-Cardiolipin IgG Ab [...] other criteria phospholipid antibody tests. Performed By: [facility] [address] [place] [address] [employer] Fabricator: Valerie Mast MD Blood BLOOD SPECIMEN / Unknown Lab Venipuncture / Unknown 05/14/2020 10:18 AM CDT 05/14/2020 10:58 AM CDT Sourav Moscoso MD LAB - SEROLOGY ORDER ROVERTO [facility] [employer] [facility]) [address] * CYTOMEGALOVIRUS ANTIBODY IGG BLOOD (05/14/2020 10:18 AM CDT) Cytomegalovirus Antibody IgG >10.00 U/mL 05/16/2020 6:28 PM CDT [facility] [employer] ([facility]) Comment: INTERPRETIVE INFORMATION: Cytomegalovirus Antibody, IgG [...] laboratory at the same time. Performed By: [facility] [address] [place] [address] [employer] Fabricator: Valerie Mast MD Blood BLOOD SPECIMEN / Unknown Lab Venipuncture / Unknown 05/14/2020 10:18 AM CDT 05/14/2020 10:55 AM CDT Glenny Martin MD LAB - CHEMISTRY ORDERABLES [employer] [facility]) [address] [place] [address], [facility] * RUBELLA ANTIBODY IGG TITER (05/14/2020 10:18 AM CDT) Rubella Antibody IgG 50.1 IU/mL 05/16/2020 6:32 PM CDT [facility] [employer] ([facility]) Comment: INTERPRETIVE INFORMATION: Rubella Antibody, IgG [...] the amount of antibody present. Performed By: [facility] [address] [place] [address] [employer] Fabricator: Valerie Mast MD Blood BLOOD SPECIMEN / Unknown Lab Venipuncture / Unknown 05/14/2020 10:18 AM CDT 05/14/2020 10:56 AM CDT Glenny Martin MD LAB - SEROLOGY ORDERABLES Performing Organization Address City/[facility]/ZIP Co de Phone Number [facility] [employer] [facility]) [address] [place] [address] * RUBEOLA ANTIBODY IGG (05/14/2020 10:18 AM CDT) [facility] Measles (Rubeola) Antibody IgG >300.0 AU/mL 05/16/2020 2:46 PM CDT [facility] ([facility]) Comment: INTERPRETIVE INFORMATION: Measles (Rubeola) Antibody, [...] laboratory at the same time. Performed By: [facility] [employer] [address] [place] [address] [employer] Fab[employer]ator: Valerie Mast MD Blood BLOOD SPECIMEN / Unknown Lab Venipuncture / Unknown 05/14/2020 10:18 AM CDT 05/14/2020 10:57 AM CDT Glenny Martin MD LAB - CHEMISTRY ORDERABLES Performing Organization Address City/[facility]/ZIP Co de Phone Number [facility]) [address] [place] [address] * MUMPS ANTIBODY IGG (05/14/2020 10:18 AM CDT) [facility] Mumps Virus Antibody IgG 17.2 AU/mL 05/16/2020 6:30 PM CDT [facility] [employer] ([facility]) Comment: INTERPRETIVE INFORMATION: Mumps Ab, IgG by [facility] 8.9 AU/mL or less .... Negative - [...] laboratory at the same time. Performed By: [facility] [address] [place] [address] [employer]ator: Valerie Mast MD Blood BLOOD SPECIMEN / Unknown Lab Venipuncture / Unknown 05/14/2020 10:18 AM CDT 05/14/2020 10:57 AM CDT Glenny Martin MD LAB - CHEMISTRY ORDERABLES [facility]) [address] [place] [address] * VARICELLA ZOSTER ANTIBODY IGG (05/14/2020 10:18 AM CDT) [facility] Varicella zoster Virus Antibody IgG 3705.0 IV 05/16/2020 2:46 PM CDT [facility] ([facility]) Comment: INTERPRETIVE INFORMATION: VZV Ab, IgG [...] laboratory at the same time. Performed By: [facility] [employer] [address] [place] [address] [employer]ator: Valerie Mast MD Blood BLOOD SPECIMEN / Unknown Lab Venipuncture / Unknown 05/14/2020 10:18 AM CDT 05/14/2020 10:57 AM CDT Glenny Martin MD LAB - CHEMISTRY ORDERABLES Performing Organization Address [facility] de Phone Number [facility]) [address] [place] [address] * PROTEIN C ACTIVITY (05/14/2020 10:18 AM CDT) Pathologist [facility] Protein C Activity 155 83 - 168 % 05/16/2020 10:47 PM CDT [facility] [employer] ([facility]) Comment: INTERPRETIVE INFORMATION: Protein C, Functional [...] reference intervals for this test in the [facility] ([facility]). Performed by [facility], [address] [place] [address] [email or web address], Valerie Mast MD, Lab. Director Blood BLOOD SPECIMEN / Unknown Lab Venipuncture / Unknown 05/14/2020 10:18 AM CDT 05/14/2020 10:48 AM CDT Glenny Martin MD LAB - COAGULATI ON ORDERABLES Performing Organization Address City/[facility] Co de Phone Number [facility]) [address] * TRANSFERRIN (05/14/2020 10:18 AM CDT) Pathologist [facility] Transferrin 245 174 - 382 mg/dL 05/14/2020 11:41 AM CDT [facility] Transferrin Saturation % 27 16 - 50 % 05/14/2020 11:41 AM CDT [facility] Blood BLOOD SPECIMEN / Unknown Lab Venipuncture / Unknown 05/14/2020 10:18 AM CDT 05/14/2020 10:57 AM CDT Glenny Martin MD LAB - CHEMISTRY ORDERABLES [place] [address] [place] [phone], [facility] [phone] * TOXOPLASMA GONDII ANTIBODY IGG (05/14/2020 10:18 AM CDT) Toxoplasma Antibody IgG <3.0 IU/mL 05/16/2020 6:32 PM CDT [facility] [employer] ([facility]) Comment: INTERPRETIVE INFORMATION: Toxoplasma Ab, IgG [...] the amount of antibody present. Performed By: [facility] [address] [place] [address] [employer]ator: Valerie Mast MD Blood BLOOD SPECIMEN / Unknown Lab Venipuncture / Unknown 05/14/2020 10:18 AM CDT 05/14/2020 10:58 AM CDT Glenny Martin MD LAB - CHEMISTRY ORDERABLES [facility] [employer] [facility]) [address] * (ABNORMAL) MADIHA-MORRIS VIRUS ANTIBODY TO VCA IGG (05/14/2020 10:18 AM CDT) Madiha-Morris Virus Antibody IgG Viral Capsid Antigen 115.0(H) 0.0 - 21.9 U/mL 05/16/2020 5:10 PM CDT [facility] [employer] ([facility]) Comment: INTERPRETIVE INFORMATION: Madiha-Morris Virus Antibody to Viral Capsid Antigen, IgG 17.9 U/mL or less.......Not Detected 18.0-21.9 U/mL..........Indeterminate - Repeat testing in 10-14 days may be helpful. 22.0 U/mL or greater....Detected Performed By: [facility] [address] [place] [address] [employer]ator: Valerie Mast MD Blood BLOOD SPECIMEN / Unknown Lab Venipuncture / Unknown 05/14/2020 10:18 AM CDT 05/14/2020 10:55 AM CDT Glenny Martin MD LAB - CHEMISTRY ORDERABLES [employer] ([facility]) [address] [place] [address], [facility] * (ABNORMAL) HEMOGLOBIN A1C (05/14/2020 10:18 AM CDT) Only the most recent of2 resultswithin the time period is included. Hemoglobin A1c 7.7(H) 4.4 - 6.3 % 05/14/2020 3:37 PM CDT [facility] Estimated Average Glucose 174 mg/dL 05/14/2020 3:37 PM T [facility] Comment: HbA1c Interpretation: Treatment target values recommended by ADA and other clinical organizations should be used to evaluate metabolic control in patients. Treatment Target Values: Normal : < 5.7% Pre-diabetes: 5.7-6.4% Diabetes: Equal to or greater than 6.5% Reference: [place] Diabetes Association Standards of Care in Diabetes -2014 In patients 70 years and older consider HbA1c target range of 7.0-7.5% Reference: Diabetes Mellitus in Older People: Position Statement on behalf of the International Association of Gerontology and Geriatrics (IAGG), the Diabetes Working Republican for Older People (EDWPOP), and the International Task Force of Experts in Diabetes. Hermelindo Remy et al. J [place] Medical Directors Association. 2012 Test results diagnostic of diabetes should be repeated for confirmation. The Sebia Capillary 2 assay for the measurement of HbA1c is a National Glycohemoglobin Standardization Program (NGSP)certified method. Blood BLOOD SPECIMEN / Unknown Lab Venipuncture / Unknown 05/14/2020 10:18 AM CDT 05/14/2020 10:55 AM CDT Glenny Martin MD LAB - CHEMISTRY ORDERABLES Performing Organization Address [facility]/ZIP Co de Phone Number [address] [address], [facility] [phone] * (ABNORMAL) HOMOCYSTEINE BLOOD QUANTITATIVE (05/14/2020 10:18 AM CDT) Homocysteine 21.1(H) 4.4 - 16.2 umol/L 05/14/2020 11:51 AM CDT [facility] Blood BLOOD SPECIMEN / Unknown Lab Venipuncture / Unknown 05/14/2020 10:18 AM CDT 05/14/2020 10:48 AM CDT Sourav Moscoso MD LAB - CHEMISTRY SUSANNAH LEONE Performing Organization Address [facility] Co de Phone Number [address] [address], [place] [phone] * ANTITHROMBIN III ACTIVITY (05/14/2020 10:18 AM CDT) Pathologist [facility] AT III Activity 125 76 - 128 % 0 9:58 PM CDT [employer] [facility]) Comment: REFERENCE INTERVAL: Antithrombin, Enzymatic (Activity) Access complete set of age- and/or gender-specific reference intervals for this test in the [facility] Test [facility] ([facility]). Performed by [facility], [address] [place] [id number] [email or web address], Valerie Mast MD, Lab. Director Blood BLOOD SPECIMEN / Unknown Lab Venipuncture / Unknown 05/14/2020 10:18 AM CDT 05/14/2020 10:51 AM CDT Sourav Moscoso MD LAB - COAGULATION OR DERABLES Performing Organization Address City/[facility]/ZIP Co de Phone Number [employer] [facility]) [address] [place] [address], [facility] * (ABNORMAL) VITAMIN D 25-HYDROXY (05/14/2020 10:18 AM CDT) Only the most recent of2 resultswithin the time period is included. Vitamin D, 25 Hydroxy 23.0(L) See comment: ng/mL 05/14/2020 11:48 AM CDT [facility] Comment: The recommendations for [...] LAB - CHEMISTRY ORDERABLES Performing Organization Address City/[facility]/ZIP Co de Phone Number [address] [address], [facility] [phone] * BLOOD TYPE ABO+ RH PANEL (05/14/2020 10:18 AM CDT) Pathologist [facility] ABO Rh A POS 05/14/2020 12:11 PM CDT [facility] Blood BLOOD SPECIMEN / Unknown Lab Venipuncture / Unknown 05/14/2020 10:18 AM CDT 05/14/2020 11:29 AM CDT Glenny Martin MD LAB - BLOOD BAN K ORDERABLES [facility] [address] [place] [address], [facility] [phone] * NICOTINE + METABOLITES BLOOD (05/14/2020 10:18 AM CDT) Nicotine <2 ng/mL 05/18/2020 10:08 PM CDT [employer] ([facility]) Comment: Consistent with abstinence from nicotine-containing [...] positive. Test developed and characteristics determined by [facility]. See Compliance Statement B: [email or web address]/CS Performed By: [facility] [address] [place] [address] [employer] Fab[employer]ator: Valerie Mast MD 3-Hydroxy Cotinine <2 ng/mL 2019 10:08 PM CDT [facility] [employer] [facility]) Cotinine <2 ng/mL 05/18/2020 10:08 PM CDT [facility] [employer] [facility]) Blood BLOOD SPECIMEN / Unknown Lab Venipuncture / Unknown 05/14/2020 10:18 AM CDT 05/14/2020 10:57 AM CDT Glenny Martin MD LAB - CHEMISTRY ORDERABLES [facility] [employer] [facility]) [address] * (ABNORMAL) CBC W AUTO DIFFERENTIAL (05/14/2020 10:18 AM CDT) Only the most recent of2 resultswithin the time period is included. WBC 5.0 3.5 - 10.5 10 3/uL 05/14/2020 11:03 AM CDT [facility] RBC 3.45(L) 4.30 - 5.70 10 6/uL 05/14/2020 11:03 AM [facility] [place] Platelet Count 232 150 - 400 10 3/uL 05/14/2020 11:03 AM [facility] RDW-SD 42.4 36.0 - 50.0 fL 05/14/2020 11:03 AM [facility] RDW-CV 12.9 11.2 - 14.8 % 05/14/2020 11:03 AM [facility] MPV 9.8 9.3 - 12.8 fL 05/14/2020 11:03 AM [facility] nRBC Absolute 0.00 0 10 3/uL 05/14/2020 11:03 AM [facility] [place] Neutrophils Absolute 2.7 1.6 - 7.0 10 3/uL 05/14/2020 11:03 AM [facility] Lymphocyte Absolute 1.6 0.8 - 2.9 10 3/uL 05/14/2020 11:03 AM [facility] Monocytes Absolute 0.47 0.14 - 0.66 10 3/uL 05/14/2020 11:03 AM [facility] Eosinophils Absolute 0.19 0.00 - 0.45 10 3/uL 05/14/2020 11:03 AM [facility] Basophils Absolute 0.03 0.00 - 0.06 10 3/uL 05/14/2020 11:03 AM [facility] Immature Granulocytes % 0.2 0.0 - 1.0 % 05/14/2020 11:03 AM [facility] Blood BLOOD SPECIMEN / Unknown Lab Venipuncture / Unknown 05/14/2020 10:18 AM CDT 05/14/2020 10:55 AM [facility] Glenny Martin MD LAB - HEMATOLOG Y ORDERABLES Performing Organization Address City/State/[facility] Co de Phone Number [facility] [address] [place] [address], [facility] [phone] * (ABNORMAL) COMPREHENSIVE METABOLIC PANEL (05/14/2020 10:18 AM [facility]) Only the most recent of2 resultswithin [...] 05/14/2020 10:18 AM CDT 05/14/2020 10:55 AM [facility] Glenny Martin MD LAB - CHEMISTRY ORDERABLES [facility] [address] [place] [address], [facility] [phone] * PROSTATE SPECIFIC ANTIGEN SCREEN (05/14/2020 10:18 AM CDT) PSA Total 0.4 0.0 - 4.0 ng/mL 05/14/2020 11:59 AM [facility] Blood BLOOD SPECIMEN / Unknown Lab Venipuncture / Unknown 05/14/2020 10:18 AM CDT 05/14/2020 10:55 AM CDT Glenny Martin MD LAB - CHEMISTRY ORDERABLES Performing Organization Address [facility] Co de Phone Number [address] [address], [facility] [phone] * (ABNORMAL) PHOSPHORUS BLOOD (05/14/2020 10:18 AM CDT) Phosphorus 5.1(H) 2.3 - 4.7 mg/dL 05/14/2020 11:41 AM CDT [facility] Blood BLOOD SPECIMEN / Unknown Lab Venipuncture / Unknown 05/14/2020 10:18 AM CDT 05/14/2020 10:55 AM CDT Glenny Martin MD LAB - CHEMISTRY ORDERABLES Performing Organization Address [facility] de Phone Number [address] [address], [facility] [phone] * IRON BLOOD (05/14/2020 10:18 AM CDT) Iron 84 50 - 175 mcg/dL 05/14/2020 11:41 AM CDT [facility] Blood BLOOD SPECIMEN / Unknown Lab Venipuncture / Unknown 05/14/2020 10:18 AM CDT 05/14/2020 10:57 AM CDT Glenny Martin MD LAB - CHEMISTRY ORDERABLES Performing Organization Address [facility] Co de Phone Number [address] [address], [facility] [phone] * (ABNORMAL) HEPATITIS B SURFACE ANTIBODY (05/14/2020 10:18 AM CDT) Hepatitis B Virus Surface Antibody Reactive( A) Non-react bianca 05/14/2020 11:47 AM CDT [facility] Comment: > 12 mIU/mL Hepatitis B surface Antibody (HBsAb). Reactive for HBsAb - individual is considered immune to Hepatitis B Virus infection. Hepatitis B Surface Antibody Quantitative 72.7(H) <8.0 mIU/mL 05/14/2020 11:47 AM CDT [facility] Comment: Hepatitis B Surface Antibody Numeric Result Interpretation: Nonreactive: <8.0 mIU/mL Indeterminate: 8.0 - 12.0 mIU/mL Reactive: >12.0 mIU/mL Blood BLOOD SPECIMEN / Unknown Lab Venipuncture / Unknown 05/14/2020 10:18 AM CDT 05/14/2020 10:55 AM CDT Glenny Martin MD LAB - CHEMISTRY ORDERABLES [address] [address], [facility] [phone] * HEPATITIS B CORE ANTIBODY (05/14/2020 10:18 AM CDT) HBc Antibody Total Non-reacti ve Non-reacti ve 05/14/2020 11:47 AM CDT [facility] Blood BLOOD SPECIMEN / Unknown Lab Venipuncture / Unknown 05/14/2020 10:18 AM CDT 05/14/2020 10:55 AM CDT Glenny Martin MD LAB - CHEMISTRY ORDERABLES Performing Organization Address City/[facility]/ZIP Co de Phone Number [address] [address], [place] [phone] * HEPATITIS B SURFACE ANTIGEN W RFLX CONFIRMATION (05/14/2020 10:18 AM CDT) Hepatitis B Virus Surface Antigen Non-reacti ve Non-reacti ve 05/14/2020 11:47 AM CDT [facility] Blood BLOOD SPECIMEN / Unknown Lab Venipuncture / Unknown 05/14/2020 10:18 AM CDT 05/14/2020 10:55 AM CDT Glenny Martin MD LAB - CHEMISTRY ORDERABLES Performing Organization Address City/[facility]/ZIP Co de Phone Number [address] [address], [place] [phone] * ALCOHOL ETHYL BLOOD (05/14/2020 10:18 AM CDT) [facility] Interpretation Ethanol None Detected None Detected mg/dL 05/14/2020 11:41 AM CDT [facility] Comment:Ethanol levels less than 10 mg/dL are resulted as None detected . Blood BLOOD SPECIMEN / Unknown Lab Venipuncture / Unknown 05/14/2020 10:18 AM CDT 05/14/2020 10:55 AM CDT Glenny Martin MD LAB - CHEMISTRY ORDERABLES [address] [address], [facility] [phone] * HEPATITIS C ANTIBODY (05/14/2020 10:18 AM CDT) [facility] Hepatitis C Antibody Non-react bianca Non-reac tive 05/14/2020 11:49 AM CDT [facility] Comment:Hepatitis C Antibody screen indicates no [...] Glenny Martin MD LAB - CHEMISTRY ORDERABLES [address] [address], [facility] [phone] * (ABNORMAL) HEPATITIS A ANTIBODY (05/14/2020 10:18 AM CDT) [facility] Hepatitis A Virus Antibody Total Positive( A) Negative 05/16/2020 11:02 AM CDT [employer] ([facility]) Comment: The positive anti-HAV is consistent with recent or remote Hepatitis A infection or antibody response to HAV vaccination. False positive anti-HAV can occur. Performed by [employer], [address] [place] [address] [email or web address], Valerie Mast MD, Lab. Director Blood BLOOD SPECIMEN / Unknown Lab Venipuncture / Unknown 05/14/2020 10:18 AM CDT 05/14/2020 10:57 AM CDT Glenny Martin MD LAB - CHEMISTRY ORDERABLES Performing Organization Address City/[facility]/ZIP Co de Phone Number [facility] [employer] ([facility]) [address] [place], [place] [address] * (ABNORMAL) FERRITIN (05/14/2020 10:18 AM CDT) Ferritin 502(H) 22 - 275 ng/mL 05/14/2020 11:47 AM CDT [facility] Blood BLOOD SPECIMEN / Unknown Lab Venipuncture / Unknown 05/14/2020 10:18 AM CDT 05/14/2020 10:55 AM CDT Glenny Martin MD LAB - CHEMISTRY ORDERABLES [place] [id number] [phone] * (ABNORMAL) LIPID PROFILE (05/14/2020 10:18 AM CDT) Cholesterol Total 137 <200 mg/dL 05/14/2020 11:41 AM CDT [facility] HDL 28(L) >40 mg/dL 05/14/2020 11:41 AM CDT [facility] Comment: ATP III Classification of HDL Cholesterol: <40 mg/dL: Considered a major risk factor. >60 mg/dL: Considered a negative risk factor. LDL Calculated 70 <100 mg/dL 05/14/2020 11:41 AM T [facility] Comment: ATP III Classification of LDL Cholesterol: <100 mg/dL: Optimal 100 - 129 mg/dL: Near Optimal/Above Optimal 130 - 159 mg/dL: Borderline High 160 - 189 mg/dL: High >190 mg/dL: Very High Triglycerides 196(H) <150 mg/dL 05/14/2020 11:41 AM CDT [facility] Comment: ATP III Classification of Triglycerides: <150 mg/dL: Normal 150 - 199 mg/dL: Borderline High 200 - 400 mg/dL: High >500 mg/dL: Very High Blood BLOOD SPECIMEN / Unknown Lab Venipuncture / Unknown 05/14/2020 10:18 AM CDT 05/14/2020 10:55 AM CDT Glenny Martin MD LAB - CHEMISTRY ORDERABLES Performing Organization Address City/[facility]/ZIP Co de Phone Number [facility] [address] [place] [address], [facility] [phone] * TYPE + SCREEN PANEL (05/14/2020 10:06 AM CDT) Antibody Screen NEG 0 12:17 PM CDT [facility] ABO Rh A POS 05/14/2020 12:17 PM CDT [facility] Blood Bank BLOOD SPECIMEN / Unknown Lab Venipuncture / Unknown 05/14/2020 10:06 AM CDT 05/14/2020 11:30 AM CDT Glenny Martin MD LAB - BLOOD BAN K ORDERABLES Performing Organization Address [facility] Co de Phone Number [facility] [address] [place] [address], [facility] [phone] * XR PANOREX (05/14/2020 7:35 AM CDT) Anatomical Region Laterality Modality Head Radiographic Toma ging 05/14/2020 7:56 AM CDT Impressions 05/15/2020 7:51 AM CDT IMPRESSION: No periapical abscess identified. Dictated by Kristie Bee MD (human resources vice president). I, Dr. CONRAD GONZALES MD [...] abscess identified. Dictated by Kristie Bee MD (human resources vice president). Dr. CONRAD Champion MD have personally [...] is normal. Dictated by Kristie Bee MD (human resources vice president). Dr. CONRAD Champion MD have personally [...] is normal. Dictated by Kristie Bee MD (human resources vice president). I, Dr. CONRAD GONZALES MD [...] approximately 13% higher for people identified as -Iraqi. eGFR by MDRD 14(L) > OR = [...] Lbs [address] [facility] Comment: Test Performed at: [facility] [address] [place] [address] ANA REYES DO,MPH 04/27/2019 9:17 AM CDT 04/27/2019 9:19 AM CDT Judah Norton MD LAB - URINE CHEMISTR Y ORDERABLES [facility] [id number] [place] [address] * XR FOOT RIGHT 3VW OR MORE [...] Modality Pelvis, Lower Extremity Radiogra [facility] 04/26/2019 1:20 PM CDT Impressions [...] by Ash Moreira MD (resident). I, Dr. OCNRAD GONZALES MD have personally reviewed and interpreted this examination/study. This report was electronically signed by CONRAD GONZALES MD on04/26/2019 2:11 PM . Judah Norton MD DIAGNOSTIC IMAGING O RDERABLES * (ABNORMAL) URINALYSIS W/MICROSCOPIC NO CULTURE (04/26/2019 12:42 PM CDT) Color UA Yellow Straw, Yellow, Colorless 04/26/2019 1:31 PM [facility] Clarity UA Slt Cloudy Clear, Slt Cloudy 04/26/2019 1:31 PM [facility] Specific Babcock UA 1.013 1.005 - 1.030 04/26/2019 1:31 PM [facility] pH UA 5.0 5.0 - 8.0 pH 04/26/2019 1:31 PM [facility] Protein UA 2+(A) Negative mg/dL 04/26/2019 1:31 PM [facility] Glucose UA 1+(A) Negative mg/dL 04/26/2019 1:31 PM [facility] Ketone UA Negative Negative mg/dL 04/26/2019 1:31 PM [facility] Bilirubin UA Negative Negative mg/dL 04/26/2019 1:31 PM [facility] Blood UA Negative Negative 04/26/2019 1:31 PM CDT [facility] Nitrite UA Negative Negative 04/26/2019 1:31 PM CDT [facility] Leukocyte Esterase Negative Negative 04/26/2019 1:31 PM CDT [facility] Urobilinogen UA Negative Negative mg/dL 04/26/2019 1:31 PM CDT [facility] RBC UA 0-2 None Seen, 0-2, 3-5 /HPF 04/26/2019 1:31 PM CDT [facility] WBC UA 0-5 None Seen, 0-5 /HPF 04/26/2019 1:31 PM CDT [facility] Squamous Epithelial Cells UA 0-2 None Seen, 0-2 /HPF 04/26/2019 1:31 PM CDT [facility] Mucus UA 1+ None, 1+ /LPF 04/26/2019 1:31 PM CDT [facility] Hyaline Casts UA 11-20(A) None Seen, 0-2 /LPF 04/26/2019 1:31 PM CDT [facility] Urine URINE SPECIMEN OBTAINED BY CLEAN CATCH PROCEDURE / Unknown Collection / Unknown 04/26/2019 12:42 PM CDT 04/26/2019 1:18 PM CDT Narrative [facility] - 04/26/2019 1:31 PM CDT Judah Norton MD LAB - URINALYSIS ORD ERABLES [facility] [address] [place] [address] * CYCLIC CITRUL PEPTIDE ANTIBODY IGG/IGA (CCP) (04/26/2019 12:42 PM CDT) CCP Antibodies IgG/IgA 17 0 - 19 units 04/29/2019 9:06 PM CDT [facility] ([facility]) Comment: Negative <20 Weak positive 20 - 39 Moderate positive 40 - 59 Strong positive >59 Blood BLOOD SPECIMEN / Unknown Lab Venipuncture / Unknown 04/26/2019 12:42 PM CDT 04/26/2019 1:18 PM CDT Narrative [facility] ([facility]) - 04/29/2019 9:06 PM CDT Performed at: 01 - [facility] [id number] Insurance Executive: Con Grimaldo MD, Phone: [phone] Judah Norton MD LAB - SEROLOGY ORDER ROVERTO [facility] ([facility]) [address] [place] [id number] * RHEUMATOID FACTOR BLOOD QUANTITATIVE (04/26/2019 12:42 PM CDT) Rheumatoid Factor <15 <30 IU/mL 04/26/2019 2:34 PM CDT [facility] Blood BLOOD SPECIMEN / Unknown Lab Venipuncture / Unknown 04/26/2019 12:42 PM CDT 04/26/2019 1:18 PM CDT Judah Norton MD LAB - CHEMISTRY ORDE SULEMA [address] [phone] * C-REACTIVE PROTEIN (04/26/2019 12:42 PM CDT) Pathologist [facility] C-Reactive Protein <0.5 <=0.5 mg/dL 04/26/2019 2:21 PM CDT [facility] Blood BLOOD SPECIMEN / Unknown Lab Venipuncture / Unknown 04/26/2019 12:42 PM CDT 04/26/2019 1:19 PM CDT Judah Norton MD LAB - CHEMISTRY SUSANNAH LEONE [address] [phone] * [facility] BLOOD SCREEN W/REFLEX TITER (04/26/2019 12:42 PM CDT) [facility] Negative 04/27/2019 3:07 PM CDT [facility] ([facility] Comment: Negative <1:80 Borderline 1:80 Positive >1:80 Blood BLOOD SPECIMEN / Unknown Lab Venipuncture / Unknown 04/26/2019 12:42 PM CDT 04/26/2019 1:18 PM CDT Narrative [facility] ([facility]) - 04/27/2019 3:07 PM CDT [facility]formed at[facility] [address] [place], [place] [id number] Insurance Executive: Mehdi Del Angel PhD, Phone: [phone] Judah Norton MD LAB - CHEMISTRY SUSANNAH LEONE Performing Organization Address City/[facility]/ZIP Co de Phone Number [facility] ([facility]) [address] [place] [address] * SS-B (SJOGREN'S) ANTIBODY (04/26/2019 12:42 PM CDT) SS-B LA Antibody 2.8 0.0 - 19.9 Units 04/30/2019 9:45 AM CDT [facility] Comment: JOSE ENRIQUE Antibody Numeric Result Interpretation: <20.0 Units: Negative 20.0 - 39.0 Units: Weakly Positive >39.0 Units: Positive Blood BLOOD SPECIMEN / Unknown Lab Venipuncture / Unknown 04/26/2019 12:42 PM CDT 04/26/2019 1:19 PM CDT Judah Norton MD LAB - CHEMISTRY SUSANNAH LEONE Performing Organization Address City/[facility]/ZIP Co de Phone Number [address] [phone] * SS-A (SJOGREN'S) ANTIBODY (04/26/2019 12:42 PM CDT) SS-A (Ro) Antibody 2.7 0.0 - 19.9 Units 04/30/2019 9:45 AM CDT [facility] Comment: JOSE ENRIQUE Antibody Numeric Result Interpretation: <20.0 Units: Negative 20.0 - 39.0 Units: Weakly Positive >39.0 Units: Positive Blood BLOOD SPECIMEN / Unknown Lab Venipuncture / Unknown 04/26/2019 12:42 PM CDT 04/26/2019 1:19 PM CDT Judah Norton MD LAB - CHEMISTRY SUSANNAH LEONE [address] [phone] * ALDOLASE (04/26/2019 12:42 PM CDT) [facility] Aldolase 6.9 3.3 - 10.3 U/L 04/29/2019 3:08 PM CDT [facility] ([facility]) Blood BLOOD SPECIMEN / Unknown Lab Venipuncture / Unknown 04/26/2019 12:42 PM CDT 04/26/2019 1:18 PM CDT Narrative [facility] ([facility]) - 04/29/2019 3:08 PM CDT Performed at: - [address] [id number] Insurance Executive: Mehdi Del Angel PhD, Phone: [phone] Judah Norton MD LAB - CHEMISTRY SUSANNAH LEONE Performing Organization Address City/[facility]/ZIP Co de Phone Number [facility] ([facility]) [address] [place] [address] * (ABNORMAL) ERYTHROCYTE SEDIMENTATION RATE (04/26/2019 12:42 PM CDT) [facility] Erythrocyte Sedimentation Rate Westergren 34(H) 0 - 20 MM/HR 04/26/2019 1:31 PM CDT [facility] Blood BLOOD SPECIMEN / Unknown Lab Venipuncture / Unknown 04/26/2019 12:42 PM CDT 04/26/2019 1:19 PM CDT Judah Norton MD LAB - HEMATOLOGY HUAN WALTON [address] [phone] * (ABNORMAL) LDH BLOOD (04/26/2019 12:42 PM CDT) [facility] LDH Total 268(H) 125 - 243 Units/L 04/26/2019 1:43 PM CDT [facility] Blood BLOOD SPECIMEN / Unknown Lab Venipuncture / Unknown 04/26/2019 12:42 PM CDT 04/26/2019 1:19 PM CDT Judah Norton MD LAB - CHEMISTRY SUSANNAH LEONE Performing Organization Address [facility]/ZIP Co de Phone Number [address] [phone] * (ABNORMAL) CK BLOOD (04/26/2019 12:42 PM CDT) Pathologist [facility] CK Total 280(H) 30 - 200 Units/L 04/26/2019 1:43 PM CDT [facility] Blood BLOOD SPECIMEN / Unknown Lab Venipuncture / Unknown 04/26/2019 12:42 PM CDT 04/26/2019 1:19 PM CDT Judah Norton MD LAB - CHEMISTRY SUSANNAH LEONE Performing Organization Address [facility]/ZIP Co de Phone Number [address] [phone] * CARDIAC PROCEDURE ORDER (11/27/2018 1:35 AM [...] UNKNOWN SAMPLE TYPE 11/26/2018 10:39 AM CDT [facility] Blood BLOOD SPECIMEN / Unknown 11/23/2018 2:11 PM CDT 11/26/2018 10:39 AM CDT Francisco Luque MD LAB - POINT OF CARE ORDERABLES [facility] [address] [place] [address] * (ABNORMAL) BASIC METABOLIC PANEL (CALCIUM TOTAL) (11/23/2018 3:25 AM CDT) Only the most recent of2 resultswithin the time period is included. [facility] Glucose 195(H) 74 - 106 mg/dL 11/23/2018 5:10 AM CDT [facility] Sodium 135(L) 136 - 145 mmol/L 11/23/2018 5:10 AM CDT [facility] Potassium 3.8 3.5 - 5.1 mmol/L 11/23/2018 5:10 AM CDT [facility] Chloride 104 98 - 107 mmol/L 11/23/2018 5:10 AM CDT [facility] CO2 23 23 - 31 mmol/L 11/23/2018 5:10 AM CDT [facility] Calcium 8.3(L) 8.4 - 10.2 mg/dL 11/23/2018 5:10 AM CDT [facility] Anion Gap 8 8 - 16 mmol/L 11/23/2018 5:10 AM CDT [facility] BUN 56(H) 8.4 - 25.7 mg/dL 11/23/2018 5:10 AM CDT [facility] Creatinine 2.74(H) 0.73 - 1.18 mg/dL 11/23/2018 5:10 AM CDT [facility] eGFR by MDRD 25(L) >60 mL/min/1.7 3m2 11/23/2018 5:10 AM CDT [facility] eGFR by MDRD 30(L) >60 mL/min/1.7 3m2 11/23/2018 5:10 AM CDT [facility] Blood BLOOD SPECIMEN / Unknown Venipuncture / Unknown 11/23/2018 3:25 AM CDT 11/23/2018 4:37 AM CDT Francisco Luque MD LAB - CHEMISTRY SUSANNAH LEONE [facility] Organization Address City/State/ZIP Co de Phone Number [facility] [address] [place] [address] * CARDIAC CATH PROCEDURE (11/22/2018 12:00 PM CDT) 11/22/2018 12:0 0 PM CDT Narrative Procedure Note Francisco Luque MD - 11/23/2018 3:23 AM CDT [facility] CARDIAC CATHETERIZATION PATIENT: JUVENAL GARVIN MR#: [id number] ADMIT DATE: 11/22/2018 CSN: [id number] PROCEDURE DATE: 11/22/2018 :1970 PHYSICIAN: Francisco Luque Jr., MD ROOM: [facility] REFERRING PHYSICIAN: Francisco Luque Jr., MD PROCEDURE [...] sheath wasplaced in right femoral artery. A 5-Togolese #4 Kranthi left coronary catheterwas advanced in the left coronary ostium and left coronary arteriograms were performed in multiple projections. This catheter was removed and exchangedfor 5-Togolese #4 Kranthi right coronary catheter, was advanced in the right coronary ostium. Right coronary arteriography was performed in multiple projections. This catheter was removed. The decision was made to proceedwith intervention and therefore no left ventriculogram was performed to avoid excess dye in this patient with severe kidney disease. The arterial sheathwas exchanged for 6-Togolese sheath followed by advancement of a 6-Togolese #4Judkins right guide to the right coronary [...] descending artery. Injection of contrast reveals an [id number]% stenosis and mid 90% stenosis and a [...] gentleman. FRANCISCO LUQUE JR., MD RPR/MODL #: [id number] cc: Francisco Luque Jr., MD MEDICAL/SURGICAL CARDIAC [...] Region Laterality Modality Pelvis, Lower Extremity [facility] 03/25/2015 8:09 PM CDT Impressions 03/25/2015 [...] [facility] NG ORDERABLES Care Teams Pest Control Supervisor Relationship Specialty Start Date End Date Aditya Castro Update Information PCP - General 03/06/19
--- OUTSIDE RECORDS SUMMARY | 2024-10-24 20:59 | XMS_ITS | Clinical Summary ---
Author Organization [facility] Address [address] [place] [address] Phone Care Team Providers Care Technical Maintenance Specialist Name Role Phone Unavailable Primary Care [...] daily 0 12/27/2017 Active Cholecalciferol (VITAMIN D3) 36677 units capsule 1 tab by mouth once [...]
--- OUTSIDE RECORDS SUMMARY | 2024-10-24 20:59 | XMS_ITS | Encounter Summary ---
Author Organization [facility] Address [address], [place] [address] Phone Care Team Providers Care Data Management Manager Name Role Phone Unavailable Primary Care Provider Unavailabl e Reason for Visit * Reason Comments Med Refill Encounter Details Date Type Department Care Team (Late st Contact Info) Description 02/13/2019 Refill [facility] [address] [address] Leandro Reyes MD [address] [address] Social History Tobacco Use [...]
--- OUTSIDE RECORDS SUMMARY | 2024-10-24 20:59 | XMS_ITS | Clinical Summary ---
Author Organization [facility] Address [address] [place] [address] Care Team Providers Care Fire Investigation Lieutenant Name Role Phone Aditya Castro MD Primary Care Provider [phone] Alondra Lambert RN Unavailable Shannon Brock MD, Ham[place] P. Unavailable [phone] Leandro Reyes MD Unavailable [phone] Allergies Active Allergy Reactions Criticality Noted Date [...] PUMP: Continue Omnipod 5 insulin pump with AgenTeccom G6 CGM at home settings: TIME BASAL [...] 1 tablet (25 mcg total) by mouth burner operator before breakfast 30 tablet 1 11/04/19 [...] mg SL tablet 12/28/19 18 Active peg 521-laozzxtqbjxh-as ycerin (ARTIFICAL TEARS) 1-0.2-0.2 % ophthalmic solution 1 drop 4 (four) times a day 07/07/20 22 Active potassium chloride ER 20 mEq CR tablet Active Active Problems Problem Noted Date Diagnosed Date End stage renal disease 07/29/2024 Nonrheumatic aortic valve stenosis 11/22/2023 Status post aortic valve replacement 11/22/2023 Status post coronary artery bypass grafting 10/2023 CAD in [place] artery 10/13/2023 Anemia 06/22/2022 Assessment & Plan (06/29/2022 10:12 AM STATOR PLATE WASHER): Stable, likely 2/2 anemia from ESRD, no [...] 06/22/2022 Assessment & Plan (06/29/2022 10:12 AM STATOR PLATE WASHER): - Renal consulted, s/p CRRT in the ICU now back on PD. Tolerated well and nephrology following - Trialysis catheter removed - Continue vitamins for renal bone mineral disease. Assessment & Plan (06/28/2022 3:29 PM STATOR PLATE WASHER): - Renal consulted, s/p CRRT in the [...] 06/22/2022 Assessment & Plan (06/29/2022 10:12 AM STATOR PLATE WASHER): C/b cardiogenic shock requiring impella in the setting of cath and AHRF 2/2 pulmonary edema, now resolved. TTE demonstrating recovered EF 65% with grade I diastolic dysfunction. - metop as above - continue low dose losartan 12.5mg daily, ok per nephro. Tolerating well - volume management per PD Assessment & Plan (06/28/2022 3:29 PM STATOR PLATE WASHER): C/b cardiogenic shock requiring impella in the [...] 06/22/2022 Assessment & Plan (06/29/2022 10:12 AM STATOR PLATE WASHER): Converted to NSR overnight on 06/24. CHADsVASc of 4 not on anticoagulation prior to admission. - cardiology consulted - recommended ongoing rate control - holding off on a/c with high risk for bleeding while on DAPT - reduced metop to 25mg BID in the setting of hypotension, HR 70s NSR Assessment & Plan (06/28/2022 3:30 PM STATOR PLATE WASHER): Converted to NSR overnight on 06/24. CHADsVASc [...] 08/22/2021 Assessment & Plan (06/29/2022 10:11 AM STATOR PLATE WASHER): With recurrent chest pain post-cath. He has [...] today Assessment & Plan (06/28/2022 3:30 PM STATOR PLATE WASHER): With recurrent chest pain post-cath. He has [...] 06/22/2022 Assessment & Plan (06/29/2022 10:11 AM STATOR PLATE WASHER): Secondary to NSTEMI, s/p Impella since removed on 06/10. Resolved. Assessment & Plan (06/23/2022 4:55 PM CDT): Secondary to NSTEMI, s/p Impella since removed on 06/10. Resolved. Assessment & Plan (06/22/2022 8:22 PM CDT): -Secondary to NSTEMI, s/p Impella since removed on 06/10. Acute hypoxemic respiratory failure 06/09/2022 Assessment & Plan (06/29/2022 10:12 AM STATOR PLATE WASHER): Secondary to ACS and flash pulmonary edema, [...] (06/10/2022): Added automatically from request for surgery [id number] Abnormal cardiovascular stress test 12/29/2020 Overview (12/29/2020): Added automatically from request for surgery [id number] 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n ative artery of [place] heart with stable angina pectoris ([facility]) 05/23/2017 History of coronary artery [...] 01/18/2013 Assessment & Plan (06/29/2022 10:12 AM STATOR PLATE WASHER): A1c well controlled on admission. He uses [...] session Assessment & Plan (06/28/2022 3:28 PM STATOR PLATE WASHER): A1c well controlled on admission. He uses [...] Department Care Team Description 09/12/2024 Orders Only [facility] Medical [facility] Cardiology [address] [place] [address] Lalit Machuca MD 08/06/[address] [facility] Transplant Kidney [address] Mailstop [phone] [place] [address] Alondra Lambert, LUAN 07/30/2024 Telephone [facility] Transplant Kidney [address] Mailstop [phone] [place] [address] Alondra Lambert, RN 07/29/2024 1:15 PM STATOR PLATE WASHER Lab [facility] ([facility]) [address] [place] [id number] End stage renal disease (HCC); ESRD (end stage renal disease) ([facility]) 07/29/2024 1:00 PM STATOR PLATE WASHER Office Visit [facility] Nephrology 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); CAD in [place] artery; Paroxysmal atrial fibrillation (HCC) 07/29/2024 11:02 AM STATOR PLATE WASHER - 07/29/2024 11:59 PM STATOR PLATE WASHER Hospital Encounter [facility] Pulmonary Rehabilitiation Program [address] [facility] [address] [place] [address] Discharge Disposition: Discharge to home or self care 07/29/2024 10:58 AM STATOR PLATE WASHER - 07/29/2024 11:59 PM STATOR PLATE WASHER Hospital Encounter [facility] [address] [place] [address] End stage renal disease (HCC) Discharge Disposition: Discharge to home or self care 07/29/2024 10:55 AM STATOR PLATE WASHER - 07/29/2024 11:59 PM STATOR PLATE WASHER Hospital Encounter [facility] ([facility]) [address] [place] [address] End stage renal disease (HCC) Discharge Disposition: Discharge to home or self care 07/29/2024 10:53 AM STATOR PLATE WASHER - 07/29/2024 11:59 PM STATOR PLATE WASHER Hospital Encounter [facility] ([facility]) [address] [place] [address] End stage renal disease (HCC) Discharge Disposition: Discharge to home or self care 07/29/2024 9:00 AM STATOR PLATE WASHER Social Work [facility] Transplant Center [address] [facility], 8th Floor, [place] [address] 07/29/[address] [facility] Transplant Kidney [address] Mailstop [phone] [place] [address] Alondra Lambert, RN 07/26/[address] [facility] Transplant Kidney [address] Mailstop [phone] [place] [address] Elsie Cornejo 07/26/[address] [facility] Transplant Kidney [address] Mailstop [phone] [place] [address] Alondra Lambert RN ESRD (end stage renal disease) (HCC) (Primary Dx) 07/26/[address] [facility] Transplant Kidney [address] Mailstop [phone] [place] [address] Alondra Lambert RN from Last 3 Months [...] the past 12 months has th e [email or web address], gas, oil, or water company threatened to [...] week 08/01/2024 How often do you attend buddhist or spiritism serv ices? Never 08/01/2024 Do [...] any time in the past 12 m [place], were you homeless or living in a halfway (including now)? No 08/01/2024 Personal Safety Answer Date Recorded Have you ever been in or are you currently in a harmful physical or emotional relationship or is someone making you feel afraid or unsafe? 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 Male 3:42 AM STATOR PLATE WASHER Gender Identity Not on file Sexual Orientation Not on file Obstetrics History Last Filed Vital Signs Vital Sign Reading Time Taken Comments Blood Pressure 122/75 07/29/2024 1:00 PM STATOR PLATE WASHER Pulse 116 07/29/2024 1:00 PM STATOR PLATE WASHER Temperature 36.8 C (98.2 F) 07/29/2024 1:00 PM STATOR PLATE WASHER Respiratory Rate 16 12/01/2023 11:1 3 AM CDT Oxygen Saturation 96% 12/01/2023 11: 13 AM CDT Inhaled Oxygen Concentration - - Weight 121.2 kg (267 lb 1.6 oz) 07/29/2024 1:00 PM STATOR PLATE WASHER Height 177.8 cm (5' 10 ) 07/29/2024 1:00 PM STATOR PLATE WASHER Body Mass Index 38.32 07/29/2024 1:00 PM STATOR PLATE WASHER Plan of Treatment Health Maintenance Due Date [...] 03/23/2017, 03/26/2015 Medical Devices Implanted Type Area Flatwork Feeder Device Identifier Shelf Expiration Date Model / Serial / Lot Kyle Vascular Device Clsr Perclose Prostyle Sut-Mediatd Closure-Repair Sys 91745-22 - [id number] Implanted:Qty: 1 on 06/10/2022 by Champ Osborne MD PhD at [facility] Other - see comments Right: Femoral Kyle Vascular 01/19/2024 [id number] / / [id number] [employer] Mary Synergy Xd Monorail 2.5mm 48mm 144cm Delivery System 1 Access [id number] - [id number] Implanted:Qty: 1 on 06/07/2022 by Champ Osborne MD PhD at [facility] Stent [employer] Mary 10/27/2023 [id number] / / [id number] [employer] Mary Synergy Xd Monorail 3mm 24mm 144cm Delivery System 1 Access Port [id number] - [id number] Implanted:Qty: 1 on 06/07/2022 by Champ Osborne MD PhD at [facility] Stent [employer] Mary 07/28/2023 [id number] / / [id number] [employer] Mary Synergy Xd Monorail 2.5mm 12mm 144cm Delivery System 1 Access [id number] - [id number] - [id number] Implanted:Qty: 1 on 06/07/2022 by hCamp Osborne MD PhD at [facility] Stent [employer] Mary 05/03/2023 [id number] / [id number] / [id number] Dai Mary [id number] Device Closure Angio-Seal Vip Bondek-Plus Polyglyd L70 Cm Od6 Fr Odsec.035 In Vascular - [id number] Implanted:Qty: 1 on 01/21/2021 by Hamlet Ortega Jr., MD at [facility] Left: Groin [employer] Mary [id number] / / Kyle Vascular Device Clsr Perclose Prostyle Sut-Mediatd Closure-Repair Sys 24426-78 - [id number] Implanted:Qty: 1 on 06/07/2022 by Champ Osborne MD PhD at [facility] Kyle [employer]ascular 01/19/2024 [id number] / / [id number] Kyle Vascular Device Clsr Perclose Prostyle Sut-Mediatd Closure-Repair Sys 36379-03 - [id number] Implanted:Qty: 1 on 06/07/2022 by Champ Osborne MD PhD at [facility] Kyle Vascular 11/19/2023 [id number] / / [id number] Bard Access Systems Power-Trialysis 13fr 30cm 3 Lumen Kink Resistance Symmetric Tip [id number] - [id number] Implanted:Qty: 1 on 06/07/2022 by Champ Osborne MD PhD at [facility] Right: Jugular Ramirez [place] 07/20/2024 [id number] / / [id number] Abiomed Inc Impella Cp Percutaneous Left Ventricular Assist Device 5866-4096 - [id number] Implanted:Qty: 1 on 06/07/2022 by Champ Osborne MD PhD at [facility] Left: Ventricle [employer] Inc [id number] / / Bard Access Systems Power-Trialysis 13fr 20cm 3 Lumen Short Term Dialysis Straight [id number] - [id number] Implanted:Qty: 1 on 06/18/2022 at [facility] Ramirez [place] 07/20/2024 [id number] / / [id number] Rl Biomet Inc Screw Bone Slf Drl Full Thread Locking 3.5x14mm Ti 100.035.14 - [id number] Implanted:Qty: 6 on 10/17/2023 by Lorne Mcnulty MD at [facility] N/A: Sternum Rl [employer] Inc 100.035.1 4 / / Rl Biomet Inc Plate Bone Low Profile 6 Hole H Shape Sternum Ti 115.102.06 - [id number] Implanted:Qty: 2 on 10/17/2023 by Lorne Mcnulty MD at [facility] N/A: Sternum Rl [employer] Inc 115.102.0 6 / / Rl [employer] Inc Plate Bone Low Profile 6 Hole O Shape Sternum Ti 115.104.06 - [id number] Implanted:Qty: 1 on 10/17/2023 by Lorne Mcnulty MD at [facility] N/A: Sternum [employer]l [employer] Inc 115.104.0 6 / / On-X Intrnl Valve Coronary Aortic Mechanical On X 25mm Onxane-25 - [id number] - [id number] Implanted:Qty: 1 on 10/17/2023 by Lorne Mcnulty MD at [facility] N/A: Heart On-X Intrnl 01/22/2028 ONXANE-25 / [id number] / Rl [employer] Inc Screw Bone Slf Drl Full Thread Locking 3.5x18mm Ti 100.035.18 - [id number] Implanted:Qty: 12 on 10/17/2023 by Lorne Mcnulty MD at [facility] N/A: Sternum Rl [employer] Inc 100.035.1 8 / / Explanted Type Area Flatwork Feeder Device Identifier Shelf Expiration Date Model / Serial / Lot Bard Peripheral Vascular Bard .25x.25in [place] Thk1.65mm Square P[place]get Cardiovascular Ptfe [id number] - [id number] Explanted:Qty: 1 on 10/17/2023 by Lorne Mcnulty MD at [facility] N/A: Heart Bard Peripheral Vascular 05/18/2026 [id number] / / Procedures Procedure Name Priority Date/Time Associated Diagnosis Comments CARDIOLOGY DOCUMENT SCAN Routine 09/08/2024 11:26 AM STATOR PLATE WASHER CARDIOLOGY DOCUMENT SCAN Routine 09/07/2024 11:24 AM STATOR PLATE WASHER CARDIOLOGY DOCUMENT SCAN Routine 09/05/2024 11:06 AM STATOR PLATE WASHER HLA SOLID ORGAN TYPING REPORT 08/02/2024 9:04 AM STATOR PLATE WASHER SIX MINUTE WALK Routine 07/29/2024 2:46 PM STATOR PLATE WASHER End stage renal disease (HCC) CT ABDOMEN PELVIS WO CONTRAST Schedule Routine, Read Routine (OP Routine) 07/29/2024 12:43 PM STATOR PLATE WASHER End stage renal disease (HCC) XR ORTHOPANTOGRAM/PANOR EX Schedule Routine, Read Routine (OP Routine) 07/29/2024 11:44 AM STATOR PLATE WASHER End stage renal disease (HCC) TYPE AND SCREEN Routine 07/29/2024 11:23 AM STATOR PLATE WASHER End stage renal disease (HCC) ECG 12-LEAD Routine 07/29/2024 11:14 AM STATOR PLATE WASHER End stage renal disease (HCC) ABO/RH Routine 07/29/2024 11:13 AM STATOR PLATE WASHER EGFR Routine 07/29/2024 11:01 AM STATOR PLATE WASHER End stage renal disease (HCC) DIFFERENTIAL AUTO Routine 07/29/2024 11: 01 AM STATOR PLATE WASHER End stage renal disease (HCC) CBC WITH AUTO DIFFERENTIAL Routine 07/29/2024 11:01 AM STATOR PLATE WASHER End stage renal disease (HCC) COMPREHENSIVE METABOLIC PANEL Routine 07/29/2024 11:01 AM STATOR PLATE WASHER End stage renal disease (HCC) CREATININE, URINE, RANDOM Routine 07/29/2024 11:01 AM STATOR PLATE WASHER End stage renal disease (HCC) FERRITIN Routine 07/29/2024 11:01 AM STATOR PLATE WASHER End stage renal disease (HCC) GAMMA GT Routine 07/29/2024 11:01 AM STATOR PLATE WASHER End stage renal disease (HCC) HEMOGLOBIN A1C Routine 07/29/2024 11:01 AM STATOR PLATE WASHER End stage renal disease (HCC) IRON PROFILE W/ IBC Routine 07/29/2024 1 1:01 AM STATOR PLATE WASHER End stage renal disease (HCC) LIPID PANEL Routine 07/29/2024 11:01 AM STATOR PLATE WASHER End stage renal disease (HCC) PTH Routine 07/29/2024 11:01 AM STATOR PLATE WASHER End stage renal disease (HCC) APTT Routine 07/29/2024 11:01 AM STATOR PLATE WASHER End stage renal disease (HCC) PHOSPHORUS Routine 07/29/2024 11:01 AM STATOR PLATE WASHER End stage renal disease (HCC) PROTEIN, URINE, RANDOM Routine 07/29/2024 11:01 AM STATOR PLATE WASHER End stage renal disease (HCC) PROTIME-INR Routine 07/29/2024 11:01 AM STATOR PLATE WASHER End stage renal disease (HCC) URIC ACID Routine 07/29/2024 11:01 AM STATOR PLATE WASHER End stage renal disease (HCC) PSA SCREEN Routine 07/29/2024 11:01 AM STATOR PLATE WASHER End stage renal disease (HCC) LR HLA TYPING (CLASS I AND CLASS II) Routine 07/29/2024 11:01 AM STATOR PLATE WASHER End stage renal disease (HCC) HLA CLASS I DNA (ABC) RECIPIENT Routine 07/29/2024 11:01 AM STATOR PLATE WASHER End stage renal disease (HCC) HLA CLASS II DNA (DR, DQ, DP) RECIPIENT Routine 07/29/2024 11:01 AM STATOR PLATE WASHER End stage renal disease (HCC) HLA ANTIBODY SCREEN - SAB (CLASS I AND CLASS II) Routine 07/29/2024 11:01 AM STATOR PLATE WASHER End stage renal disease (HCC) HLA ANTIBODY SCREEN BY SINGLE ANTIGEN Routine 07/29/2024 11:01 AM STATOR PLATE WASHER End stage renal disease (HCC) CMV, IGG Routine 07/29/2024 11:01 AM STATOR PLATE WASHER End stage renal disease (HCC) MADIHA-MORRIS VIRUS VCA ANTIBODY PANEL Routine 07/29/2024 11:01 AM STATOR PLATE WASHER End stage renal disease (HCC) HIV 1/2 ANTIBODY PLUS P24 ANTIGEN Routine 07/29/2024 11:01 AM STATOR PLATE WASHER End stage renal disease (HCC) HSV 1 ANTIBODY, IGG Routine 07/29/2024 1 1:01 AM STATOR PLATE WASHER End stage renal disease (HCC) HSV 2 ANTIBODY, IGG Routine 07/29/2024 1 1:01 AM STATOR PLATE WASHER End stage renal disease (HCC) HEPATITIS B CORE ANTIBODY, TOTAL Routine 07/29/2024 11:01 AM STATOR PLATE WASHER End stage renal disease (HCC) HEPATITIS B SURFACE ANTIBODY (IMMUNE STATUS) Routine 07/29/2024 11:01 AM STATOR PLATE WASHER End stage renal disease (HCC) HEPATITIS B SURFACE ANTIGEN Routine 07/29/2024 11:01 AM STATOR PLATE WASHER End stage renal disease (HCC) HEPATITIS C ANTIBODY Routine 07/29/2024 11:01 AM STATOR PLATE WASHER End stage renal disease (HCC) RPR Routine 07/29/2024 11:01 AM STATOR PLATE WASHER End stage renal disease (HCC) VARICELLA ZOSTER ANTIBODY, IGG Routine 07/29/2024 11:01 AM STATOR PLATE WASHER End stage renal disease (HCC) URINALYSIS, MICROSCOPIC ONLY Routine 07/29/2024 10:53 AM STATOR PLATE WASHER End stage renal disease (HCC) OXALATE Routine 07/29/2024 10:53 AM STATOR PLATE WASHER ESRD (end stage renal disease) (HCC) URINALYSIS AND REFLEX TO MICROSCOPIC Routine 07/29/2024 10:53 AM STATOR PLATE WASHER End stage renal disease (HCC) TSH Routine 10/27/2023 2:30 AM STATOR PLATE WASHER from Last 3 Months or Most Recently Relevant to Health Maintenance Results * Cardiology Document Scan (09/08/2024 11:26 AM STATOR PLATE WASHER) Anatomical Region Laterality Modality Other Juan Christianson MD CV CARDIAC SERVICES PROCEDU RES Final Result * Cardiology Document Scan (09/07/2024 11:24 AM STATOR PLATE WASHER) Anatomical Region Laterality Modality Other Juan Christianson MD CV CARDIAC SERVICES PROCEDU RES Final Result * Cardiology Document Scan (09/05/2024 11:06 AM STATOR PLATE WASHER) Anatomical Region Laterality Modality Other Lalit Machuca MD CV CARDIAC SERVICES PROCEDURES F inal Result * HLA Solid Organ Typing Report (08/02/2024 9:04 AM STATOR PLATE WASHER) us Jossie King MD LAB GENETIC TESTIN G Final Result * Six Minute Walk - (07/29/2024 2:46 PM STATOR PLATE WASHER) Anatomical Region Laterality Modality PFT Narrative 07/29/2024 3:52 PM STATOR PLATE WASHER Table formatting from the original result was not included. Davey Pickard V., SALES AND SERVICE OFFICER on 07/29/2024 2:45 PM Table formatting from the original note was not included. 6 MINUTE WALK RESULTS Name: Juvenal Dagile Jr : 1970 DOS: 07/29/2024 Diagnosis: ESRD/KTE SALES AND SERVICE OFFICER performed walk: Carmenza Pickard Rest: 1 min [...] Abdomen Pelvis WO Contrast (07/29/2024 12:43 PM STATOR PLATE WASHER) Anatomical Region Laterality Modality Body N/A Computed Tomogra phy 07/29/2024 1:04 PM STATOR PLATE WASHER Impressions 07/29/2024 1:04 PM STATOR PLATE WASHER 1. Moderate discontinuous atherosclerotic calcifications involve the [...] Teresa Rivera M.D. 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 Electronically signed by: Julio Pinedo M.D. Narrative 07/29/2024 12:59 PM STATOR PLATE WASHER EXAMINATION: XR ORTHOPANTOGRAM/PANOREX HISTORY: Kidney Transplant Evaluation [...] * Type and screen (07/29/2024 11:23 AM STATOR PLATE WASHER) Maribel, indirect Negative ABO Rh A Positive [facility] Blood 07/29/2024 11:2 3 AM STATOR PLATE WASHER 07/29/2024 11:43 AM STATOR PLATE WASHER Narrative [facility] - 07/29/2024 12:45 PM STATOR PLATE WASHER Please draw the ABO and the Type and Screen as two separate blood draws with each stamped with the two different times stamps as this is a regulatory requirement for this patient to be listed for Kidney Transplant. This lab is being obtained as part of a Kidney transplant evaluation, is time sensitive, and should only be drawn during the evaluation visit at [facility] 3C Lab. Has the patient had Daratumumab or Isatuximab in the past 6 months?->Unknown Jossie King MD LAB BLOOD BANK ERNESTO T ORDERABLES Final Result [facility] [place] [address] * ECG 12 lead (07/29/2024 11:14 AM STATOR PLATE WASHER) Ventricular Rate EKG/Min 117 BPM [facility] Atrial Rate 117 BPM [facility] GA-Interval (MSEC) 144 ms [facility] QRS-Interval (MSEC) 126 ms [facility] QT-Interval (MSEC) 366 ms [facility] QTc 510 ms [facility] R [place] -40 degrees [facility] T [place] 147 degrees [facility] Diagnosis Poor data quality, interpretation [...] Inferior leads Confirmed by FERDINAND SAL M.D ([id number]) on 07/29/2024 3:38:41 PM [facility] 07/29/2024 11:1 4 AM STATOR PLATE WASHER 07/29/2024 3:38 PM STATOR PLATE WASHER Jossie King MD ECG ORDERABLES Fi nal Result [facility] * ABO/Rh (07/29/2024 11:13 AM STATOR PLATE WASHER) ABO Rh A Positive Blood 07/29/2024 11:1 3 AM STATOR PLATE WASHER 07/29/2024 2:45 PM STATOR PLATE WASHER Jossie King MD LAB BLOOD BANK ERNESTO T ORDERABLES Final Result Performing Organization Address City/[facility] Co de Phone Number [facility] [place] [address] * LR HLA Typing (Class I and Class II) (07/29/2024 11:01 AM STATOR PLATE WASHER) r-SSO HISTOTRAC A First Allele A*03 HISTOTRAC [...] 07/30/24 [facility] Blood 07/29/2024 11:0 1 AM STATOR PLATE WASHER 08/02/2024 9:03 AM STATOR PLATE WASHER Narrative [facility] - 08/02/2024 9:03 AM STATOR PLATE WASHER DNA was extracted from whole blood or buccal cell specimens, and relevant genomic regions were amplified by polymerase chain reactions (PCR). HLA typing was performed on PCR amplicons using reverse sequence-specific oligonucleotide (r-SSO) and/or sequence-specific primers (SSP) based techniques. r-SSO and SSP are FDA approved as IVD tests and validated by the [facility] HLA Laboratory. Testing performed at the [facility], [address] [place] [address], 5th floor, [place], [address]. [facility] # [id number]. Dorothy Meade, Ph.D., Hand Polisher, HLA Laboratory Rell Samuels M.D., Ph.D., Scanning Supervisor, HLA Laboratory Licha Nieto, Ph.D., CLIA Scanning Supervisor, [facility] Current methodology comment last revised on 04/25/17. us Jossie King MD LAB BLOOD ORDERABL ES Final Result [facility] * Collection Task for HLA Typing 1 (07/29/2024 11:01 AM STATOR PLATE WASHER) HLA Class I DNA (ABC) Recipient Received Blood 07/29/2024 11:0 1 AM STATOR PLATE WASHER 07/29/2024 11:56 AM STATOR PLATE WASHER Jossie King MD LAB BLOOD ORDERABL ES Final Result Performing Organization Address [facility] de Phone Number [facility] [place] [address] * Collection Task for HLA Antibody Screen (07/29/2024 11:01 AM STATOR PLATE WASHER) [facility] HLA Antibody Screen By Single Antigen Received Blood 07/29/2024 11:0 1 AM STATOR PLATE WASHER 07/29/2024 11:56 AM STATOR PLATE WASHER Jossie King MD LAB BLOOD ORDERABL ES Final Result Performing Organization Address [facility] de Phone Number [facility] [place] [address] * Collection Task for HLA Typing 2, Patient (07/29/2024 11:01 AM STATOR PLATE WASHER) [facility] HLA Class II DNA (DR, DQ, DP) Recipient Received Blood 07/29/2024 11:0 1 AM STATOR PLATE WASHER 07/29/2024 11:56 AM STATOR PLATE WASHER Jossie King MD LAB BLOOD ORDERABL ES Final Result Performing Organization Address [facility] de Phone Number [facility] [place] [address] * (ABNORMAL) eGFR (07/29/2024 11:01 AM STATOR PLATE WASHER) [facility] eGFR 7(L) >=60 mL/min/1. 73 m2 [...] reviewed 2021. Blood 07/29/2024 11:0 1 AM STATOR PLATE WASHER 07/29/2024 11:33 AM STATOR PLATE WASHER us Jossie King MD LAB BLOOD ORDERABL ES Final Result [facility] [place] [address] * Differential, auto (07/29/2024 11:01 AM STATOR PLATE WASHER) Neutrophil abs 3.1 1.5 - 6.5 K/cumm Imm gran abs 0.0 0.0 - 0.1 K/cumm [facility] Lymphocyte abs 1.1 0.8 - 3.3 K/cumm [facility] Monocyte abs 0.7 0.2 - 0.8 K/cumm [facility] Eosinophil abs 0.2 0.0 - 0.5 K/cumm [facility] Basophil abs 0.0 0.0 - 0.1 K/cumm [facility] Neutrophil pct 60.3 % [facility] Comment: Interpretive Data Percent cell count reference ranges are not reported, since discordance with absolute values may lead to misinterpretation of CBC data. Current Interpretive Data was last revised on 2017. Imm gran pct 0.6 % [facility] Comment: Interpretive Data Percent cell count reference ranges are not reported, since discordance with absolute values may lead to misinterpretation of CBC data. Current Interpretive Data was last revised on 2017. Lymphocyte pct 21.4 % [facility] Comment: Interpretive Data Percent cell count reference ranges are not reported, since discordance with absolute values may lead to misinterpretation of CBC data. Current Interpretive Data was last revised on 2017. Monocyte pct 13.7 % [facility] Comment: Interpretive Data Percent cell count reference ranges are not reported, since discordance with absolute values may lead to misinterpretation of CBC data. Current Interpretive Data was last revised on 2017. Eosinophil pct 3.2 % [facility] Comment: Interpretive Data Percent cell count reference ranges are not reported, since discordance with absolute values may lead to misinterpretation of CBC data. Current Interpretive Data was last revised on 2017. Basophil pct 0.8 % [facility] Comment: Interpretive Data Percent cell count reference ranges are not reported, since discordance with absolute values may lead to misinterpretation of CBC data. Current Interpretive Data was last revised on 2017. Blood 07/29/2024 11:0 1 AM STATOR PLATE WASHER 07/29/2024 11:34 AM STATOR PLATE WASHER [facility] Jaylen King MD LAB BLOOD ORDERABL ES Final Result [facility] [place] [address] * PSA screen (07/29/2024 11:01 AM STATOR PLATE WASHER) PSA-Total 0.55 <=3.90 ng/mL Comment: Interpretive Data [...] revised 21. Blood 07/29/2024 11:0 1 AM STATOR PLATE WASHER 07/29/2024 11:33 AM STATOR PLATE WASHER Narrative [facility] - 07/29/2024 12:39 PM STATOR PLATE WASHER This lab is being obtained as part of a Kidney transplant evaluation, is time sensitive, and should only be drawn during the evaluation visit at [address] Lab. Jossie King MD LAB BLOOD ORDERABL ES Final Result Performing Organization Address [facility] de Phone Number [facility] [place] [address] * (ABNORMAL) Iron profile w/ IBC (07/29/2024 11:01 AM STATOR PLATE WASHER) [facility] Iron 62 50 - 150 mcg/dL TIBC 208(L) 250 - 400 mcg/dL [facility] Transferrin saturation 30 20 - 50 % [facility] Blood 07/29/2024 11:0 1 AM STATOR PLATE WASHER 07/29/2024 11:33 AM STATOR PLATE WASHER Narrative [facility] - 07/29/2024 12:10 PM STATOR PLATE WASHER This lab is being obtained as part of a Kidney transplant evaluation, is time sensitive, and should only be drawn during the evaluation visit at [address] Lab[address] Jossie King MD LAB BLOOD ORDERABL ES Final Result Performing Organization Address [facility] de Phone Number [facility] [place] [address] * HIV 1/2 Antibody plus p24 Antigen Blood (07/29/2024 11:01 AM STATOR PLATE WASHER) [facility] HIV 1/2 ab + p24 ag Nonreactive Nonreactive Comment:Nonreactive for HIV- 1 antigen and HIV-1/HIV-2 antibodies. No laboratory evidence of HIV infection. If acute HIV infection is suspected, consider testing for HIV-1 RNA. Current interpretive data was last revised on 22. Blood 07/29/2024 11:0 1 AM STATOR PLATE WASHER 07/29/2024 11:32 AM STATOR PLATE WASHER Narrative [facility] - 07/29/2024 12:13 PM STATOR PLATE WASHER This lab is being obtained as part of a Kidney transplant evaluation, is time sensitive, and should only be drawn during the evaluation visit at [address] Jossie King MD LAB MICROBIOLOGY - GENERAL ORDERABLES Final Result Performing Organization Address [facility] Co de Phone Number [facility] [place] [address] * (ABNORMAL) CMV, IgG Blood (07/29/2024 11:01 AM STATOR PLATE WASHER) Pathologist [facility] CMV IgG Positive( A) [...] CMV infection. Blood 07/29/2024 11:0 1 AM STATOR PLATE WASHER 07/29/2024 11:33 AM STATOR PLATE WASHER Narrative [facility] - 07/29/2024 1:44 PM STATOR PLATE WASHER This lab is being obtained as part of a Kidney transplant evaluation, is time sensitive, and should only be drawn during the evaluation visit at [address] Jossie King MD LAB MICROBIOLOGY - GENERAL ORDERABLES Final Result Performing Organization Address [facility] de Phone Number [facility] [place] [address] * HLA Antibody Screen - SAB (Class I and Class II) (07/29/2024 11:01 AM STATOR PLATE WASHER) Class I Treatment EDTA [facility] Class I [...] DR52 [facility] Blood 07/29/2024 11:0 1 AM STATOR PLATE WASHER 08/02/2024 9:46 AM STATOR PLATE WASHER Narrative [facility] - 08/02/2024 9:46 AM STATOR PLATE WASHER Single-antigen HLA antibody screen is performed on serum samples using a method developed and validated by the [facility] HLA laboratory based on an FDA-approved IVD kit (Contact At Once!creen Single-Antigen, [employer], [place], [place]). All patient serum samples are pretreated with EDTA before the screen to prevent complement interference. Additional serum treatments, such as adsorption and DTT treatment, may be performed as indicated. Interpretive comments: Low risk: MFI [id number]. Moderate risk: MFI [id number]. Increased risk: MFI >/= 5000. The presence [...] avoid. Testing performed at the [facility], [address] [place] [address], 5th floor, [place], [address]. CLIA # [id number]. Dorothy Meade, Ph.D., Hand Polisher, HLA Laboratory Rell Samuels M.D., Ph.D., Scanning Supervisor, HLA Laboratory Licha Nieto, Ph.D., KIARRA Scanning Supervisor, [facility] Current methodology and interpretive comments last revised on 09/15/2022. Jossie King MD LAB BLOOD ORDERABL ES Final Result [facility] * (ABNORMAL) CBC with auto differential (07/29/2024 11:01 AM STATOR PLATE WASHER) [facility] WBC 5.1 3.8 - 9.9 K/cumm Hgb 11.5(L) 13.0 - 17.5 g/dL [facility] Hct 34.4(L) 38.9 - 50.3 % [facility] Plt 208 150 - 400 K/cumm [facility] MPV 10.8 9.1 - 12.3 fL [facility] RBC 3.76(L) 4.30 - 5.80 M/cumm [facility] MCV 91.5 81.3 - 96.4 fL [facility] MCH 30.6 27.1 - 33.3 pg [facility] MCHC 33.4 32.3 - 35.7 g/dL [facility] RDW CV 14.3 11.1 - 14.9 % [facility] RDW SD 47.9 35.7 - 48.1 fL [facility] NRBC abs 0.00 0.00 - 0.01 K/cumm [facility] Blood 07/29/2024 11:0 1 AM STATOR PLATE WASHER 07/29/2024 11:34 AM STATOR PLATE WASHER Narrative [facility] - 07/29/2024 11:45 AM STATOR PLATE WASHER This lab is being obtained as part of a Kidney transplant evaluation, is time sensitive, and should only be drawn during the evaluation visit at [facility] 3C Lab. Jossie King MD LAB BLOOD ORDERABL ES Final Result [facility] [place] [address] * Hepatitis C antibody Blood (07/29/2024 11:01 AM STATOR PLATE WASHER) Hep C Ab Nonreactive Nonreactive Comment:Antibodies to HCV no t detected. Does NOT exclude the possibility of recent exposure to HCV. Current interpretive data was last revised on 22 Blood 07/29/2024 11:0 1 AM STATOR PLATE WASHER 07/29/2024 11:32 AM STATOR PLATE WASHER Narrative [facility] - 07/29/2024 12:47 PM STATOR PLATE WASHER This lab is being obtained as part of a Kidney transplant evaluation, is time sensitive, and should only be drawn during the evaluation visit at [address] Lab. Jossie King MD LAB MICROBIOLOGY - GENERAL ORDERABLES Final Result [facility] [place] [address] * (ABNORMAL) Madiha-Morris virus (EBV) antibody panel Blood (07/29/2024 11:01 AM STATOR PLATE WASHER) Pathologist [facility] EBV nuclear Ab Positive(A) Negative Comment:Indicates the presen ce of detectable IgG antibody to EBV Nuclear Antigen. EBV VCA IgG Positive(A) Negative [facility] Comment:Indicates the presen ce of antibody; 90% of the adult population will have been infected with EBV sometime in the past. EBV VCA IgM Negative Negative [facility] Comment:No detectable IgM an tibody to EBV-VCA. A negative result indicates no current infection with EBV. If clinical suspicion of acute EBV infection is present, testing should be repeated after one week. EBV interp Past Infection [facility] Blood 07/29/2024 11:0 1 AM STATOR PLATE WASHER 07/29/2024 11:33 AM STATOR PLATE WASHER Narrative [facility] - 07/29/2024 1:43 PM STATOR PLATE WASHER This lab is being obtained as part of a Kidney transplant evaluation, is time sensitive, and should only be drawn during the evaluation visit at [address] Lab. Jossie King MD LAB MICROBIOLOGY - GENERAL ORDERABLES Final Result Performing Organization Address [facility] Co de Phone Number [facility] [place] [address] * Hepatitis B core antibody, total Blood (07/29/2024 11:01 AM STATOR PLATE WASHER) Pathologist [facility] Hep B core IgG/IgM Nonreactive Nonreactive Blood 07/29/2024 11:0 1 AM STATOR PLATE WASHER 07/29/2024 11:32 AM STATOR PLATE WASHER Narrative [facility] - 07/29/2024 12:47 PM STATOR PLATE WASHER This lab is being obtained as part of a Kidney transplant evaluation, is time sensitive, and should only be drawn during the evaluation visit at [address] Lab. Jossie King MD LAB MICROBIOLOGY - GENERAL ORDERABLES Final Result Performing Organization Address [facility] [place] [address] * Protein, urine, random (07/29/2024 11:01 AM STATOR PLATE WASHER) Pathologist [facility] Protein, ur, quant 121.2 mg/dL Comment: Interpretive Data No reference range established. Current interpretive data was last revised 2019. Urine 07/29/2024 11:0 1 AM STATOR PLATE WASHER 07/29/2024 11:32 AM STATOR PLATE WASHER Narrative [facility] - 07/29/2024 12:18 PM STATOR PLATE WASHER This lab is being obtained as part of a Kidney transplant evaluation, is time sensitive, and should only be drawn during the evaluation visit at [address] Jossie King MD LAB URINE ORDERABL ES Final Result Performing Organization Address [facility] Co de Phone Number [facility] [place] [address] * Creatinine, urine, random (07/29/2024 11:01 AM STATOR PLATE WASHER) Pathologist [facility] Creatinine Ur 167.1 mg/dL Comment: Interpretive Data No reference range established. Current interpretive data was last revised 2019. Urine 07/29/2024 11:0 1 AM STATOR PLATE WASHER 07/29/2024 11:32 AM STATOR PLATE WASHER Narrative [facility] - 07/29/2024 12:18 PM STATOR PLATE WASHER This lab is being obtained as part of a Kidney transplant evaluation, is time sensitive, and should only be drawn during the evaluation visit at [address]. Jossie King MD LAB URINE ORDERABL ES Final Result Performing Organization Address [facility] Co de Phone Number [facility] [place] [address] * HSV 2 IgG Antibody Blood (07/29/2024 11:01 AM STATOR PLATE WASHER) [facility] HSV 2 IgG Nonreactive Nonreactive Comment: Interpretive Data 1. Nonreactive: No detectable IgG antibody to HSV-2. 2. Equivocal: Presence or absence of detectable antibodies to HSV-2 cannot be determined and the test should be repeated. 3. Reactive: Indicates presence of detectable IgG antibody to HSV-2. Current interpretive data was last revised on 2022. Blood 07/29/2024 11:0 1 AM STATOR PLATE WASHER 07/29/2024 11:33 AM STATOR PLATE WASHER Narrative [facility] - 07/29/2024 1:44 PM STATOR PLATE WASHER This lab is being obtained as part of a Kidney transplant evaluation, is time sensitive, and should only be drawn during the evaluation visit at [address] Jossie King MD LAB MICROBIOLOGY - GENERAL ORDERABLES Final Result Performing Organization Address [facility] Co de Phone Number [facility] [place] [address] * (ABNORMAL) HSV 1 IgG Antibody Blood (07/29/2024 11:01 AM STATOR PLATE WASHER) [facility] HSV 1 IgG Reactive( A) Nonreactive Comment: Interpretive Data 1. Nonreactive: No detectable IgG antibody to HSV-1. 2. Equivocal: Presence or absence of detectable antibodies to HSV-1 cannot be determined and the test should be repeated. 3. Reactive: Indicates presence of detectable IgG antibody to HSV-1. Current interpretive data was last revised on 2016. Blood 07/29/2024 11:0 1 AM STATOR PLATE WASHER 07/29/2024 11:33 AM STATOR PLATE WASHER Narrative [facility] - 07/29/2024 1:44 PM STATOR PLATE WASHER This lab is being obtained as part of a Kidney transplant evaluation, is time sensitive, and should only be drawn during the evaluation visit at [address]. Jossie King MD LAB MICROBIOLOGY - GENERAL ORDERABLES Final Result Performing Organization Address [facility] de Phone Number [facility] [place] [address] * RPR Blood (07/29/2024 11:01 AM STATOR PLATE WASHER) Pathologist [facility] RPR Nonreactive Nonreactive Blood 07/29/2024 11:0 1 AM STATOR PLATE WASHER 07/29/2024 11:33 AM STATOR PLATE WASHER Narrative [facility] - 07/29/2024 12:34 PM STATOR PLATE WASHER This lab is being obtained as part of a Kidney transplant evaluation, is time sensitive, and should only be drawn during the evaluation visit at [address]. Jossie King MD LAB MICROBIOLOGY - GENERAL ORDERABLES Final Result Performing Organization Address [facility] Co de Phone Number [facility] [place] [address] * Hepatitis B surface antibody (immune status) Blood (07/29/2024 11:01 AM STATOR PLATE WASHER) Pathologist [facility] HBsAb (immune status) Reactive Comment:This result is consi stent with immunity to Hepatitis B Virus when used in the setting of routine screening. Current interpretive data was last revised on 22 Blood 07/29/2024 11:0 1 AM STATOR PLATE WASHER 07/29/2024 11:32 AM STATOR PLATE WASHER Narrative [facility] 07/29/2024 12:47 PM STATOR PLATE WASHER This lab is being obtained as part of a Kidney transplant evaluation, is time sensitive, and should only be drawn during the evaluation visit at [address] Lab. Jossie King MD LAB MICROBIOLOGY - GENERAL ORDERABLES Final Result Performing Organization Address [facility] de Phone Number [facility] [place] [address] * Hepatitis B Surface Antigen Blood (07/29/2024 11:01 AM STATOR PLATE WASHER) [facility] HepBsAg Nonreactive Nonreactive Blood 07/29/2024 11:0 1 AM STATOR PLATE WASHER 07/29/2024 11:32 AM STATOR PLATE WASHER Narrative [facility] 07/29/2024 12:47 PM STATOR PLATE WASHER This lab is being obtained as part of a Kidney transplant evaluation, is time sensitive, and should only be drawn during the evaluation visit at [address] Jossie King MD LAB MICROBIOLOGY - GENERAL ORDERABLES Final Result Performing Organization Address [facility] de Phone Number [facility] [place] [address] * (ABNORMAL) aPTT (07/29/2024 11:01 AM STATOR PLATE WASHER) Pathologist [facility] aPTT 61(H) 28 - 38 sec Comment: Interpretive Data Heparin therapeutic range: 66.0 - 100.0 seconds. Range based on correlation with therapeutic heparin activity range of 0.3 - 0.7 Units/mL. Current interpretive data was last revised on 2023. Blood 07/29/2024 11:0 1 AM STATOR PLATE WASHER 07/29/2024 11:32 AM STATOR PLATE WASHER Narrative [facility] 07/29/2024 11:42 AM STATOR PLATE WASHER This lab is being obtained as part of a Kidney transplant evaluation, is time sensitive, and should only be drawn during the evaluation visit at [address] Lab. Jossie King MD LAB BLOOD ORDERABL ES Final Result Performing Organization Address [facility] Co de Phone Number [facility] [place] [address] * (ABNORMAL) Protime-INR (07/29/2024 11:01 AM STATOR PLATE WASHER) Pathologist [facility] PT 50.6(H) 9.7 - 13.0 sec INR 4.54(H) 0.90 - 1.20 [facility] Comment: Interpretive data Oral anticoagulant therapeutic ranges: Venous thromboembolism prophylaxis or treatment: 2.0-3.0 CARDIOLOGY Standard range: 2.0-3.0 High-intensity range: 2.5-3.5 Refer to indication-specific guidelines for appropriate target ranges for prosthetic heart valve replacement. Current interpretive data was last revised on 2019. Blood 07/29/2024 11:0 1 AM STATOR PLATE WASHER 07/29/2024 11:32 AM STATOR PLATE WASHER Narrative [facility] - 07/29/2024 11:42 AM STATOR PLATE WASHER This lab is being obtained as part of a Kidney transplant evaluation, is time sensitive, and should only be drawn during the evaluation visit at [address] Jossie King MD LAB BLOOD ORDERABL ES Final Result Performing Organization Address [facility] de Phone Number [facility] [place] [address] * Varicella Zoster IgG antibody Blood (07/29/2024 11:01 AM STATOR PLATE WASHER) Pathologist [facility] VZV IgG Reactive Reactive Comment:Reactive: Results diego ggest response to immunization or prior exposure to the virus. Blood 07/29/2024 11:0 1 AM STATOR PLATE WASHER 07/29/2024 11:33 AM STATOR PLATE WASHER Narrative [facility] - 07/29/2024 1:45 PM STATOR PLATE WASHER This lab is being obtained as part of a Kidney transplant evaluation, is time sensitive, and should only be drawn during the evaluation visit at [address] Jossie King MD LAB MICROBIOLOGY - GENERAL ORDERABLES Final Result [facility] [place] [address] * (ABNORMAL) Uric acid (07/29/2024 11:01 AM STATOR PLATE WASHER) Pathologist [facility] Uric acid 2.0(L) 3.0 - 8.0 mg/dL Blood 07/29/2024 11:0 1 AM STATOR PLATE WASHER 07/29/2024 11:33 AM STATOR PLATE WASHER Narrative [facility] - 07/29/2024 12:10 PM STATOR PLATE WASHER This lab is being obtained as part of a Kidney transplant evaluation, is time sensitive, and should only be drawn during the evaluation visit at [address]. Jossie King MD LAB BLOOD ORDERABL ES Final Result Performing Organization Address [facility] de Phone Number [facility] [place] [address] * (ABNORMAL) Phosphorus (07/29/2024 11:01 AM STATOR PLATE WASHER) Pathologist [facility] Phosphorus, pl 5.1(H) 2.3 - 4.5 mg/dL Blood 07/29/2024 11:0 1 AM STATOR PLATE WASHER 07/29/2024 11:33 AM STATOR PLATE WASHER Narrative [facility] - 07/29/2024 12:10 PM STATOR PLATE WASHER This lab is being obtained as part of a Kidney transplant evaluation, is time sensitive, and should only be drawn during the evaluation visit at [address]. Jossie King MD LAB BLOOD ORDERABL ES Final Result Performing Organization Address [facility] Co de Phone Number [facility] [place] [address] * (ABNORMAL) PTH (07/29/2024 11:01 AM STATOR PLATE WASHER) [facility] PTH 444(H) 15 - 65 pg/mL Blood 07/29/2024 11:0 1 AM STATOR PLATE WASHER 07/29/2024 11:34 AM STATOR PLATE WASHER Narrative [facility] - 07/29/2024 12:02 PM STATOR PLATE WASHER This lab is being obtained as part of a Kidney transplant evaluation, is time sensitive, and should only be drawn during the evaluation visit at [address] Lab. Jossie King MD LAB BLOOD ORDERABL ES Final Result Performing Organization Address [facility] Co de Phone Number [facility] [place] [address] * (ABNORMAL) Hemoglobin A1c (07/29/2024 11:01 AM STATOR PLATE WASHER) [facility] Hgb A1C 9.0(H) 4.0 - 5.6 % Estimated Average Glucose 212 mg/dL [facility] Comment: The ADA recommends reporting an estimated Average Glucose (eAG) with all Hemoglobin A1c results using the equation derived from a study of 507 normal and diabetic adults. Minority populations were underrepresented and children were not included. (Diabetes Care 2020; 43(S1): S66-S76). The eAG is not equivalent to a fasting glucose. Blood 07/29/2024 11:0 1 AM STATOR PLATE WASHER 07/29/2024 11:34 AM STATOR PLATE WASHER Narrative [facility] - 07/29/2024 11:53 AM STATOR PLATE WASHER This lab is being obtained as part of a Kidney transplant evaluation, is time sensitive, and should only be drawn during the evaluation visit at [address] Jossie King MD LAB BLOOD ORDERABL ES Final Result Performing Organization Address [facility]/ZIP Co de Phone Number [facility] [place] [address] * Gamma GT (07/29/2024 11:01 AM STATOR PLATE WASHER) GGT 22 10 - 50 Units/L Blood 07/29/2024 11:0 1 AM STATOR PLATE WASHER 07/29/2024 11:33 AM STATOR PLATE WASHER Narrative [facility] - 07/29/2024 12:40 PM STATOR PLATE WASHER This lab is being obtained as part of a Kidney transplant evaluation, is time sensitive, and should only be drawn during the evaluation visit at [address] Jossie King MD LAB BLOOD ORDERABL ES Final Result Performing Organization Address [facility] de Phone Number [facility] [place] [address] * (ABNORMAL) Ferritin (07/29/2024 11:01 AM STATOR PLATE WASHER) [facility] Ferritin 761(H) 30 - 400 ng/mL Blood 07/29/2024 11:0 1 AM STATOR PLATE WASHER 07/29/2024 11:33 AM STATOR PLATE WASHER Narrative [facility] - 07/29/2024 12:10 PM STATOR PLATE WASHER This lab is being obtained as part of a Kidney transplant evaluation, is time sensitive, and should only be drawn during the evaluation visit at [address] Jossie King MD LAB BLOOD ORDERABL ES Final Result Performing Organization Address [facility] de Phone Number [facility] [place] [address] * (ABNORMAL) Lipid panel (07/29/2024 11:01 AM STATOR PLATE WASHER) [facility] Cholesterol 114 30 - 199 [...] revised on 2018. Triglycerides 66 <=149 mg/dL [facility] Comment: Interpretive Data Ages < or [...] revised on 2018. HDL 29(L) >=40 mg/dL [facility] Comment: Interpretive Data Ages < or [...] on 2018. LDL, calculated 71 <=129 mg/dL [facility] Comment: Interpretive Data Ages < or [...] revised on 2024. Non-HDL Cholesterol 85 mg/dL [facility] Comment: Interpretive Data Ages < or [...] last revised on 2018. Chol/HDL ratio 4 [facility] Blood 07/29/2024 11:0 1 AM STATOR PLATE WASHER 07/29/2024 11:33 AM STATOR PLATE WASHER Narrative [facility] - 07/29/2024 12:10 PM STATOR PLATE WASHER This lab is being obtained as part of a Kidney transplant evaluation, is time sensitive, and should only be drawn during the evaluation visit at [facility]. Jossie King MD LAB BLOOD ORDERABL ES Final Result [facility] [place] [address] * (ABNORMAL) Comprehensive metabolic panel (07/29/2024 11:01 AM STATOR PLATE WASHER) Sodium 136 135 - 145 mmol/L Potassium, pl 4.6 3.3 - 4.9 mmol/L [facility] Chloride 93(L) 97 - 110 mmol/L [facility] CO2 26 22 - 32 mmol/L [facility] Anion gap 17(H) 2 - 15 mmol/L [facility] BUN 65(H) 6 - 25 mg/dL [facility] Creatinine 8.07(H) 0.80 - 1.30 mg/dL [facility] Glucose 280(H) 70 - 199 mg/dL [facility] Comment: Interpretive Data Fasting glucose >/= [...] 2022. Calcium 9.4 8.5 - 10.3 mg/dL [facility] Bilirubin, total 0.3 0.1 - 1.2 mg/dL [facility] Protein, pl 7.2 6.5 - 8.5 g/dL [facility] Albumin 3.8 3.5 - 5.0 g/dL [facility] Alk phos 99 40 - 130 Units/L [facility] ALT 30 7 - 55 Units/L [facility] AST 31 10 - 50 Units/L [facility] Blood 07/29/2024 11:0 1 AM STATOR PLATE WASHER 07/29/2024 11:33 AM STATOR PLATE WASHER Narrative [facility] - 07/29/2024 12:10 PM STATOR PLATE WASHER This lab is being obtained as part of a Kidney transplant evaluation, is time sensitive, and should only be drawn during the evaluation visit at [facility]. us Jossie King MD LAB BLOOD ORDERABL ES Final Result [facility] [place] [address] * (ABNORMAL) Oxalate (oxalic acid) (07/29/2024 10:53 AM STATOR PLATE WASHER) [facility] Signature Oxalate 12.3(H) <=2.0 mcmol/L [facility] Comment: High value suggestive of Primary Hyperoxaluria. However, if the patient has chronic kidney disease (GFR<30 mL/min/1.73m2), plasma oxalate values up to 30 mcmol/L can be normal. The [facility]oxaluria [facility] is available to review case details and answer any questions regarding interpretation ([email or web address] [phone]) ADDITIONAL INFORMATION This test has been modified from the signal intelligence analyst's instructions. Its performance characteristics were determined by [facility] in a manner consistent with CLIA requirements. This test has not been cleared or approved by the U.S. Food and Drug Administration. Test Performed by: [facility] [place] [address] [employer] P[employer] Or Applier: Jairo Higgins Ph.D.; CLIA# [id number] Blood 07/29/2024 10:5 3 AM STATOR PLATE WASHER 07/29/2024 11:37 AM STATOR PLATE WASHER us Jossie King MD LAB BLOOD ORDERABL ES Final Result [facility] [place] [address] [facility] * (ABNORMAL) Urinalysis reflex to microscopic (07/29/2024 10:53 AM STATOR PLATE WASHER) Color, ur Yellow Yellow Clarity, ur Cloudy(A) Clear [facility] Specific gravity, ur 1.022 1.003 - 1.030 [facility] pH, urine 6.0 [facility] Comment: Interpretive Data U rine pH is affected by diet, medications, systemic acid-base disturbances, and renal tubular function. pH may affect urinary stone formation. For example, urine pH below 6.0 may help reduce the tendency for calcium phosphate stones and pH greater than 6.0 may reduce the tendency for uric acid stone formation. Source: [facility] [place] Current Interpretive Data was last revised on 2017 Protein, ur ql 2+(A) Negative [facility] Glucose, ur ql 4+(A) Negative [facility] Ketones, ur Negative Negative [facility] Bilirubin, ur Negative Negative [facility] Blood, ur 3+(A) Negative [facility] Urobilinogen, ur <2.0 <2.0 mg/dL [facility] Nitrite, ur Negative Negative [facility] Leukocyte esterase, ur 2+(A) Negative [facility] UA reflex comment Reflex to microscopic UA will be performed. [facility] Urine 07/29/2024 10:5 3 AM STATOR PLATE WASHER 07/29/2024 11:27 AM STATOR PLATE WASHER Narrative [facility] - 07/29/2024 11:29 AM STATOR PLATE WASHER This lab is being obtained as part of a Kidney transplant evaluation, is time sensitive, and should only be drawn during the evaluation visit at [facility]. Jossie King MD LAB URINE ORDERABL ES Final Result Performing Organization Address [facility] de Phone Number [facility] [place] [address] * (ABNORMAL) Urinalysis, microscopic only (07/29/2024 10:53 AM STATOR PLATE WASHER) WBC, ur 21-50(A) 0 - 5 /HPF RBC, ur >50(A) 0 - 2 /HPF [facility] Epithelial cells, squamous, ur 1-5 0 - 5 /HPF [facility] Bacteria, ur Trace(A) [facility] Mucous, ur Present(A) [facility] Hyaline casts, ur 1-5 0 - 10 /LPF [facility] Urine 07/29/2024 10:5 3 AM STATOR PLATE WASHER 07/29/2024 11:27 AM STATOR PLATE WASHER Jossie King MD LAB URINE ORDERABL ES Final Result Performing Organization Address [facility] Co de Phone Number [facility] [place] [address] * (ABNORMAL) TSH (10/27/2023 2:30 AM STATOR PLATE WASHER) Thyroid Stimulating Hormone 13.20(H) 0.30 - 4.20 mcIUnit/mL Blood 10/27/2023 2:30 AM STATOR PLATE WASHER 10/27/2023 2:42 AM STATOR PLATE WASHER Lorne Mcnulty MD LAB BLOOD ORDERABLES Final Result [facility] [address] [place] [address] from Last 3 Months or Most Recently Relevant to Health Maintenance Insurance [employer] [facility] MEDICARE Address: [address] [place] [address] [employer] [facility] MEDICARE Address: [address] [address] [place] [address] [employer] RISK [employer] Advance Directives For more information, please contact: [phone] * Full Code (Latest Code Status on File) Date Activated Date Inactivated Comments 10/13/2023 11:32 PM 11/03/2023 11:42 PM * Full Code Date Activated Date Inactivated Comments 06/05/2022 6:17 AM 06/29/2022 6:20 PM * Full Code Date Activated Date Inactivated Comments 06/05/2022 4:43 AM 06/05/2022 4:43 AM * Full Code Date Activated Date Inactivated Comments 06/04/2022 9:55 PM 06/05/2022 4:43 AM Care Teams Fire Investigation Lieutenant Relationship Specialty Start Date End Date Aditya Castro MD [address] [place] [address] DEPT [place] [address] PCP - General 10/17/19 Alondra Lambert, RN [address] [facility] [address] [place] [address] Services Program Manager 03/06/24 Hamlet Ortega Jr., MD [address] [place] [address] Consulting Physician Cardiovascular Disease 05/10/24 Leandro Reyes MD [address] [place] [id number] Consulting Physician Nephrology 07/30/24
--- OUTSIDE RECORDS SUMMARY | 2024-10-24 20:59 | XMS_ITS | Referral Summary ---
Author Organization [facility] Address [address] [place] [address] Care Team Providers Care Pressure Dispatcher Name Role Phone Aditya Castro MD Primary Care Provider [phone] Alondra Lambert RN Unavailable [phone] Shannon Brock MD, Hamlet Gordon Unavailable [phone] Leandro Reyes MD Unavailable [phone] Encounters Date Type Department Care Team Description 09/12/2024 Orders Only [facility] Cardiology [address] [place] [id number] Lalit Machuca MD 08/06/[address] [facility] Transplant Kidney [address] Mailstop [phone] [place] [address] Alondra Lambert RN 07/30/[address] [facility] Transplant Kidney [address] [facility] [address] Mailstop [phone] [place] [address] Alondra Lambert RN 07/29/2024 10:55 AM REFRIGERATION SERVICE TECHNICIAN - 07/29/2024 11:59 PM REFRIGERATION SERVICE TECHNICIAN Hospital Encounter [facility] ([facility]) [address] [place] [address] End stage renal disease (HCC) Discharge Disposition: Discharge to home or self care 07/29/2024 10:53 AM REFRIGERATION SERVICE TECHNICIAN - 07/29/2024 11:59 PM REFRIGERATION SERVICE TECHNICIAN Hospital Encounter [facility] ([facility]) [address] [place] [address] End stage renal disease (HCC) Discharge Disposition: Discharge to home or self care 07/29/2024 1:15 PM REFRIGERATION SERVICE TECHNICIAN Lab [facility] ([facility]) [address] [place] [phone] End stage renal disease (HCC); ESRD (end stage renal disease) ([facility]) 07/29/[address] [facility] Transplant Kidney [address] [facility] [address] Mailstop [phone] [place] [address] Alondra Lambert RN 07/29/2024 10:58 AM REFRIGERATION SERVICE TECHNICIAN - 07/29/2024 11:59 PM REFRIGERATION SERVICE TECHNICIAN Hospital Encounter [facility] ([facility]) [address] [place] [address] End stage renal disease (HCC) Discharge Disposition: Discharge to home or self care 07/29/2024 9:00 AM REFRIGERATION SERVICE TECHNICIAN Social Work [facility] Transplant Center [address] [place] [address] [facility], 8th Floor, [place] [address] 07/29/2024 11:02 AM REFRIGERATION SERVICE TECHNICIAN - 07/29/2024 11:59 PM REFRIGERATION SERVICE TECHNICIAN Hospital Encounter [facility] Pulmonary Rehabilitiation Program [address] [place] [address] Advanced Medicine [address] [place] [address] Discharge Disposition: Discharge to home or self care 07/29/2024 1:00 PM REFRIGERATION SERVICE TECHNICIAN Office Visit 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 Transplant Kidney [address] [facility] [address] Mailstop [phone] [place] [address] Elsie Cornejo 07/26/[address] [facility] Transplant Kidney [address] [facility] [address] Mailstop [phone] [place] [address] Alondra Lambert RN ESRD (end stage renal disease) (HCC) (Primary Dx) 07/26/[address] [facility] Transplant Kidney [address] Mailstop [phone] [place] [address] Alondra Lambert, LUAN from Last 3 Months [...] THIS IS FOR THE INSULIN PUMP: Continue FiveCubitsipod 5 insulin pump with Upptalk G6 CGM at home settings: TIME BASAL [...] 1 tablet (25 mcg total) by mouth jet handler before breakfast 30 tablet 1 11/04/19 24 [...] mg SL tablet 12/28/19 18 Active peg [id number]-pwcrqsjddbsh-yt ycerin (ARTIFICAL TEARS) 1-0.2-0.2 % ophthalmic solution 1 drop 4 (four) times a day 07/07/20 22 Active potassium chloride ER 20 mEq CR tablet Active Active Problems Problem Noted Date Diagnosed Date End stage renal disease 07/29/2024 Nonrheumatic aortic valve stenosis 11/22/2023 Status post aortic valve replacement 11/22/2023 Status post coronary artery bypass grafting 10/2023 CAD in pauma artery 10/13/2023 Anemia 06/22/2022 Assessment & Plan (06/29/2022 10:12 AM REFRIGERATION SERVICE TECHNICIAN): Stable, likely 2/2 anemia from ESRD, no [...] 06/22/2022 Assessment & Plan (06/29/2022 10:12 AM REFRIGERATION SERVICE TECHNICIAN): - Renal consulted, s/p CRRT in the ICU now back on PD. Tolerated well and nephrology following - Trialysis catheter removed - Continue vitamins for renal bone mineral disease. Assessment & Plan (06/28/2022 3:29 PM REFRIGERATION SERVICE TECHNICIAN): - Renal consulted, s/p CRRT in the [...] 06/22/2022 Assessment & Plan (06/29/2022 10:12 AM REFRIGERATION SERVICE TECHNICIAN): C/b cardiogenic shock requiring impella in the setting of cath and AHRF 2/2 pulmonary edema, now resolved. TTE demonstrating recovered EF 65% with grade I diastolic dysfunction. - metop as above - continue low dose losartan 12.5mg daily, ok per nephro. Tolerating well - volume management per PD Assessment & Plan (06/28/2022 3:29 PM REFRIGERATION SERVICE TECHNICIAN): C/b cardiogenic shock requiring impella in the [...] 06/22/2022 Assessment & Plan (06/29/2022 10:12 AM REFRIGERATION SERVICE TECHNICIAN): Converted to NSR overnight on 06/24. CHADsVASc of 4 not on anticoagulation prior to admission. - cardiology consulted - recommended ongoing rate control - holding off on a/c with high risk for bleeding while on DAPT - reduced metop to 25mg BID in the setting of hypotension, HR 70s NSR Assessment & Plan (06/28/2022 3:30 PM REFRIGERATION SERVICE TECHNICIAN): Converted to NSR overnight on 06/24. CHADsVASc [...] 08/22/2021 Assessment & Plan (06/29/2022 10:11 AM REFRIGERATION SERVICE TECHNICIAN): With recurrent chest pain post-cath. He has [...] today Assessment & Plan (06/28/2022 3:30 PM REFRIGERATION SERVICE TECHNICIAN): With recurrent chest pain post-cath. He has [...] 06/22/2022 Assessment & Plan (06/29/2022 10:11 AM REFRIGERATION SERVICE TECHNICIAN): Secondary to NSTEMI, s/p Impella since removed on 06/10. Resolved. Assessment & Plan (06/23/2022 4:55 PM CDT): Secondary to NSTEMI, s/p Impella since removed on 06/10. Resolved. Assessment & Plan (06/22/2022 8:22 PM CDT): -Secondary to NSTEMI, s/p Impella since removed on 06/10. 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 He uses [...] session Assessment & Plan (06/28/2022 3:28 PM REFRIGERATION SERVICE TECHNICIAN): A1c well controlled on admission. He uses [...] from doctor or pharmacy Never 12/01/2023 [facility] Utilities Answer Date Recorded In the past 12 months has e [employer], gas, oil, or water [employer] threatened to shut off services in your [...] How often do you attend sabianism or holiness serv ices? Never 08/01/2024 Do you belong [...] in a intermediate (including now)? No 10/16/2023 Housing Stability Vital [...] were you homeless or living in a intermediate (including now)? No 08/01/2024 Personal Safety Answer Date Recorded Have you ever been in or are you currently in a harmful physical or emotional relationship or is someone making you feel afraid or unsafe? 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 Male 3:42 AM REFRIGERATION SERVICE TECHNICIAN Gender Identity Not on file Sexual Orientation Not on file Last Filed Vital Signs Vital Sign Reading Time Taken Comments Blood Pressure 122/75 07/29/2024 1:00 PM REFRIGERATION SERVICE TECHNICIAN Pulse 116 07/29/2024 1:00 PM REFRIGERATION SERVICE TECHNICIAN Temperature 36.8 C (98.2 F) 07/29/2024 1:00 PM REFRIGERATION SERVICE TECHNICIAN Respiratory Rate 16 12/01/2023 11:1 3 AM CDT Oxygen Saturation 96% 12/01/2023 11: 13 AM CDT Inhaled Oxygen Concentration - - Weight 121.2 kg (267 lb 1.6 oz) 07/29/2024 1:00 PM REFRIGERATION SERVICE TECHNICIAN Height 177.8 cm (5' 10 ) 07/29/2024 1:00 PM REFRIGERATION SERVICE TECHNICIAN Body Mass Index 38.32 07/29/2024 1:00 PM REFRIGERATION SERVICE TECHNICIAN Plan of Treatment Not on file Medical Devices Implanted Type Area Remnants Cutter Device Identifier Shelf Expiration Date Model / Serial / Lot Kyle Vascular Device Clsr Perclose Prostyle Sut-Mediatd Closure-Repair Sys 89951-24 - [id number] Implanted:Qty: 1 on 06/10/2022 by Champ Osborne MD PhD at [facility] Other - see comments Right: Femoral [employer] 01/19/2024 [id number] / / [id number] [employer] Mary Synergy Xd Monorail 2.5mm 48mm 144cm Delivery System 1 Access [id number] - [id number] Implanted:Qty: 1 on 06/07/2022 by Champ Osborne MD PhD at [facility] Stent [employer] Mary 10/27/2023 [id number] / / [id number] [employer] Mary Synergy Xd Monorail 3mm 24mm 144cm Delivery System 1 Access Port [id number] - [id number] Implanted:Qty: 1 on 06/07/2022 by Champ Osborne MD PhD at [facility] Stent [employer] Mary 07/28/2023 [id number] / / [id number] [employer] Mary Synergy Xd Monorail 2.5mm 12mm 144cm Delivery System 1 Access [id number] - [id number] - [id number] Implanted:Qty: 1 on 06/07/2022 by Champ Osborne MD PhD at [facility] Stent [employer] Mary 05/03/2023 [id number] / [id number] / [id number] [facility] Mary [id number] Device Closure Angio-Seal Vip Bondek-Plus Polyglyd L70 Cm Od6 Fr Odsec.035 In Vascular - [id number] Implanted:Qty: 1 on 01/21/2021 by Hamlet Ortega Jr., MD at [facility] Left: Groin [employer] Mary [id number] / / Kyle Vascular Device Clsr Perclose Prostyle Sut-Mediatd Closure-Repair Sys 90309-45 [id number] Implanted:Qty: 1 on 06/07/2022 by Champ Osborne MD PhD at [facility] [employer] 01/19/2024 [id number] / [id number] Kyle V[employer] Device Clsr Perclose Prostyle Sut-Mediatd Closure-Repair Sys 96208-85 - [id number] Implanted:Qty: 1 on 06/07/2022 by Champ Osborne MD PhD at [facility] Kyle Vascular 11/19/2023 [id number] / / [id number] Bard Access Systems Power-Trialysis 13fr 30cm 3 Lumen Kink Resistance Symmetric Tip [id number] - [id number] Implanted:Qty: 1 on 06/07/2022 by Champ Osborne MD PhD at [facility] Right: Jugular Ramirez Norton 07/20/2024 [id number] / / [id number] [employer] Impella Cp Percutaneous Left Ventricular Assist Device 1663-6740 - [id number] Implanted:Qty: 1 on 06/07/2022 by Champ Osborne MD PhD at [facility] Left: Ventricle [employer] [id number] / / Bard Access Systems Power-Trialysis 13fr 20cm 3 Lumen Short Term Dialysis Straight [id number] - [id number] Implanted:Qty: 1 on 06/18/2022 at [facility] Ramirez Chapito 07/20/2024 [id number] / / [id number] Rl [employer] Screw Bone Slf Drl Full Thread Locking 3.5x14mm Ti 100.035.14 - [id number] Implanted:Qty: 6 on 10/17/2023 by Lorne Mcnulty MD at [facility] N/A: Sternum [employer] 100.035.1 4 / / [employer]l [employer] Plate Bone Low Profile 6 Hole H Shape Sternum Ti 115.102.06 - [id number] Implanted:Qty: 2 on 10/17/2023 by Lorne Mcnulty MD at [facility] N/A: Sternum [employer] 115.102.0 6 / / Rl [employer] Plate Bone Low Profile 6 Hole O Shape Sternum Ti 115.104.06 - [id number] Implanted:Qty: 1 on 10/17/2023 by Lorne Mcnulty MD at [facility] N/A: Sternum [employer] 115.104.0 6 / / On-X Intrnl Valve Coronary Aortic Mechanical On X 25mm Onxane-25 - [id number] - [id number] Implanted:Qty: 1 on 10/17/2023 by Lorne Mcnulty MD at [facility] N/A: Heart On-X Intrnl 01/22/2028 ONXANE-25 / [id number] / Rl [employer] Screw Bone Slf Drl Full Thread Locking 3.5x18mm Ti 100.035.18 - [id number] Implanted:Qty: 12 on 10/17/2023 by Lorne Mcnulty MD at [facility] N/A: Sternum [employer] 100.035.1 8 / / Explanted Type Area Remnants Cutter Device Identifier Shelf Expiration Date Model / Serial / Lot Bard Peripheral Vascular Bard .25x.25in [place] Thk1.65mm Square P[employer]get [employer] Ptfe [id number] - [id number] Explanted:Qty: 1 on 10/17/2023 by Lorne Mcnulty MD at [facility] N/A: Heart Bard Peripheral Vascular 05/18/2026 [id number] / / Procedures Procedure Name Priority Date/Time Associated Diagnosis Comments CARDIOLOGY DOCUMENT SCAN Routine 09/08/2024 11:26 AM REFRIGERATION SERVICE TECHNICIAN CARDIOLOGY DOCUMENT SCAN Routine 09/07/2024 11:24 AM REFRIGERATION SERVICE TECHNICIAN CARDIOLOGY DOCUMENT SCAN Routine 09/05/2024 11:06 AM REFRIGERATION SERVICE TECHNICIAN HLA SOLID ORGAN TYPING REPORT 08/02/2024 9:04 AM REFRIGERATION SERVICE TECHNICIAN SIX MINUTE WALK Routine 07/29/2024 2:46 PM REFRIGERATION SERVICE TECHNICIAN End stage renal disease (HCC) CT ABDOMEN PELVIS WO CONTRAST Schedule Routine, Read Routine (OP Routine) 07/29/2024 12:43 PM REFRIGERATION SERVICE TECHNICIAN End stage renal disease (HCC) XR ORTHOPANTOGRAM/PANOR EX Schedule Routine, Read Routine (OP Routine) 07/29/2024 11:44 AM REFRIGERATION SERVICE TECHNICIAN End stage renal disease (HCC) TYPE AND SCREEN Routine 07/29/2024 11:23 AM REFRIGERATION SERVICE TECHNICIAN End stage renal disease (HCC) ECG 12-LEAD Routine 07/29/2024 11:14 AM REFRIGERATION SERVICE TECHNICIAN End stage renal disease (HCC) ABO/RH Routine 07/29/2024 11:13 AM REFRIGERATION SERVICE TECHNICIAN EGFR Routine 07/29/2024 11:01 AM REFRIGERATION SERVICE TECHNICIAN End stage renal disease (HCC) DIFFERENTIAL AUTO Routine 07/29/2024 11: 01 AM REFRIGERATION SERVICE TECHNICIAN End stage renal disease (HCC) CBC WITH AUTO DIFFERENTIAL Routine 07/29/2024 11:01 AM REFRIGERATION SERVICE TECHNICIAN End stage renal disease (HCC) COMPREHENSIVE METABOLIC PANEL Routine 07/29/2024 11:01 AM REFRIGERATION SERVICE TECHNICIAN End stage renal disease (HCC) CREATININE, URINE, RANDOM Routine 07/29/2024 11:01 AM REFRIGERATION SERVICE TECHNICIAN End stage renal disease (HCC) FERRITIN Routine 07/29/2024 11:01 AM REFRIGERATION SERVICE TECHNICIAN End stage renal disease (HCC) GAMMA GT Routine 07/29/2024 11:01 AM REFRIGERATION SERVICE TECHNICIAN End stage renal disease (HCC) HEMOGLOBIN A1C Routine 07/29/2024 11:01 AM REFRIGERATION SERVICE TECHNICIAN End stage renal disease (HCC) IRON PROFILE W/ IBC Routine 07/29/2024 1 1:01 AM REFRIGERATION SERVICE TECHNICIAN End stage renal disease (HCC) LIPID PANEL Routine 07/29/2024 11:01 AM REFRIGERATION SERVICE TECHNICIAN End stage renal disease (HCC) PTH Routine 07/29/2024 11:01 AM REFRIGERATION SERVICE TECHNICIAN End stage renal disease (HCC) APTT Routine 07/29/2024 11:01 AM REFRIGERATION SERVICE TECHNICIAN End stage renal disease (HCC) PHOSPHORUS Routine 07/29/2024 11:01 AM REFRIGERATION SERVICE TECHNICIAN End stage renal disease (HCC) PROTEIN, URINE, RANDOM Routine 07/29/2024 11:01 AM REFRIGERATION SERVICE TECHNICIAN End stage renal disease (HCC) PROTIME-INR Routine 07/29/2024 11:01 AM REFRIGERATION SERVICE TECHNICIAN End stage renal disease (HCC) URIC ACID Routine 07/29/2024 11:01 AM REFRIGERATION SERVICE TECHNICIAN End stage renal disease (HCC) PSA SCREEN Routine 07/29/2024 11:01 AM REFRIGERATION SERVICE TECHNICIAN End stage renal disease (HCC) LR HLA TYPING (CLASS I AND CLASS II) Routine 07/29/2024 11:01 AM REFRIGERATION SERVICE TECHNICIAN End stage renal disease (HCC) HLA CLASS I DNA (ABC) RECIPIENT Routine 07/29/2024 11:01 AM REFRIGERATION SERVICE TECHNICIAN End stage renal disease (HCC) HLA CLASS II DNA (DR, DQ, DP) RECIPIENT Routine 07/29/2024 11:01 AM REFRIGERATION SERVICE TECHNICIAN End stage renal disease (HCC) HLA ANTIBODY SCREEN - SAB (CLASS I AND CLASS II) Routine 07/29/2024 11:01 AM REFRIGERATION SERVICE TECHNICIAN End stage renal disease (HCC) HLA ANTIBODY SCREEN BY SINGLE ANTIGEN Routine 07/29/2024 11:01 AM REFRIGERATION SERVICE TECHNICIAN End stage renal disease (HCC) CMV, IGG Routine 07/29/2024 11:01 AM REFRIGERATION SERVICE TECHNICIAN End stage renal disease (HCC) MADIHA-MORRIS VIRUS VCA ANTIBODY PANEL Routine 07/29/2024 11:01 AM REFRIGERATION SERVICE TECHNICIAN End stage renal disease (HCC) HIV 1/2 ANTIBODY PLUS P24 ANTIGEN Routine 07/29/2024 11:01 AM REFRIGERATION SERVICE TECHNICIAN End stage renal disease (HCC) HSV 1 ANTIBODY, IGG Routine 07/29/2024 1 1:01 AM REFRIGERATION SERVICE TECHNICIAN End stage renal disease (HCC) HSV 2 ANTIBODY, IGG Routine 07/29/2024 1 1:01 AM REFRIGERATION SERVICE TECHNICIAN End stage renal disease (HCC) HEPATITIS B CORE ANTIBODY, TOTAL Routine 07/29/2024 11:01 AM REFRIGERATION SERVICE TECHNICIAN End stage renal disease (HCC) HEPATITIS B SURFACE ANTIBODY (IMMUNE STATUS) Routine 07/29/2024 11:01 AM REFRIGERATION SERVICE TECHNICIAN End stage renal disease (HCC) HEPATITIS B SURFACE ANTIGEN Routine 07/29/2024 11:01 AM REFRIGERATION SERVICE TECHNICIAN End stage renal disease (HCC) HEPATITIS C ANTIBODY Routine 07/29/2024 11:01 AM REFRIGERATION SERVICE TECHNICIAN End stage renal disease (HCC) RPR Routine 07/29/2024 11:01 AM REFRIGERATION SERVICE TECHNICIAN End stage renal disease (HCC) VARICELLA ZOSTER ANTIBODY, IGG Routine 07/29/2024 11:01 AM REFRIGERATION SERVICE TECHNICIAN End stage renal disease (HCC) URINALYSIS, MICROSCOPIC ONLY Routine 07/29/2024 10:53 AM REFRIGERATION SERVICE TECHNICIAN End stage renal disease (HCC) OXALATE Routine 07/29/2024 10:53 AM REFRIGERATION SERVICE TECHNICIAN ESRD (end stage renal disease) (HCC) URINALYSIS AND REFLEX TO MICROSCOPIC Routine 07/29/2024 10:53 AM REFRIGERATION SERVICE TECHNICIAN End stage renal disease (HCC) TSH Routine 10/27/2023 2:30 AM REFRIGERATION SERVICE TECHNICIAN from Last 3 Months or Most Recently Relevant to Health Maintenance Results * Cardiology Document Scan (09/08/2024 11:26 AM REFRIGERATION SERVICE TECHNICIAN) Anatomical Region Laterality Modality Other Juan Christianson MD CV CARDIAC SERVICES PROCEDU RES Final Result * Cardiology Document Scan (09/07/2024 11:24 AM REFRIGERATION SERVICE TECHNICIAN) Anatomical Region Laterality Modality Other Juan Christianson MD CV CARDIAC SERVICES PROCEDU RES Final Result * Cardiology Document Scan (09/05/2024 11:06 AM REFRIGERATION SERVICE TECHNICIAN) Anatomical Region Laterality Modality Other Lalit Machuca MD CV CARDIAC SERVICES PROCEDURES F inal Result * HLA Solid Organ Typing Report (08/02/2024 9:04 AM REFRIGERATION SERVICE TECHNICIAN) Jossie King MD LAB GENETIC TESTIN G Final Result * Six Minute Walk - (07/29/2024 2:46 PM REFRIGERATION SERVICE TECHNICIAN) Anatomical Region Laterality Modality PFT Narrative 07/29/2024 3:52 PM REFRIGERATION SERVICE TECHNICIAN Table formatting from the original result was not included. Davey Pickard V., GROCERY CLERK on 07/29/2024 2:45 PM Table formatting from the original note was not included. 6 MINUTE WALK RESULTS Name: Pilo Juvenalfabi Rodriguez Jr : 1970 DOS: 07/29/2024 Diagnosis: ESRD/KTE GROCERY CLERK performed walk: Carmezna Pickard Rest: 1 min 0 LPM SPO2: [...] Prescription: RA at rest and with exercise [facility] Jaylen King MD RESPIRATORY CARE O TOMAS Final Result * CT Abdomen Pelvis WO Contrast (07/29/2024 12:43 PM REFRIGERATION SERVICE TECHNICIAN) Anatomical Region Laterality Modality Body N/A Computed Tomogra phy 07/29/2024 1:04 PM REFRIGERATION SERVICE TECHNICIAN Impressions 07/29/2024 1:04 PM REFRIGERATION SERVICE TECHNICIAN 1. Moderate discontinuous atherosclerotic calcifications involve the [...] Teresa Rivera M.D. 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 Electronically signed by: Julio Pinedo M.D. Narrative 07/29/2024 12:59 PM REFRIGERATION SERVICE TECHNICIAN EXAMINATION: XR ORTHOPANTOGRAM/PANOREX HISTORY: Kidney Transplant Evaluation [...] * Type and screen (07/29/2024 11:23 AM REFRIGERATION SERVICE TECHNICIAN) Maribel, indirect Negative ABO Rh A Positive [facility] Blood 07/29/2024 11:2 3 AM REFRIGERATION SERVICE TECHNICIAN 07/29/2024 11:43 AM REFRIGERATION SERVICE TECHNICIAN [facility]ative [facility] - 07/29/2024 12:45 PM REFRIGERATION SERVICE TECHNICIAN Please draw the ABO and the Type and Screen as two separate blood draws with each stamped with the two different times stamps as this is a regulatory requirement for this patient to be listed for Kidney Transplant. This lab is being obtained as part of a Kidney transplant evaluation, is time sensitive, and should only be drawn during the evaluation visit at [facility] 3C Lab. Has the patient had Daratumumab or Isatuximab in the past 6 months?->Unknown Jossie King MD LAB BLOOD BANK ERNESTO T ORDERABLES Final Result [facility] Department [place] [address] * ECG 12 lead (07/29/2024 11:14 AM REFRIGERATION SERVICE TECHNICIAN) Pathologist [facility] Ventricular Rate EKG/Min 117 BPM [facility] Atrial Rate 117 BPM [facility] ND-Interval (MSEC) 144 ms [facility] QRS-Interval (MSEC) 126 ms [facility] QT-Interval (MSEC) 366 ms [facility] QTc 510 ms [facility] R [place] -40 degrees [facility] T [place] 147 degrees [facility] Diagnosis Poor data quality, interpretation may [...] M.D ([id number]) on 07/29/2024 3:38:41 PM [facility] 07/29/2024 11:1 4 AM REFRIGERATION SERVICE TECHNICIAN 07/29/2024 3:38 PM REFRIGERATION SERVICE TECHNICIAN Jossie King MD ECG ORDERABLES Fi nal Result [facility] * ABO/Rh (07/29/2024 11:13 AM REFRIGERATION SERVICE TECHNICIAN) ABO Rh A Positive Blood 07/29/2024 11:1 3 AM REFRIGERATION SERVICE TECHNICIAN 07/29/2024 2:45 PM REFRIGERATION SERVICE TECHNICIAN Jossie King MD LAB BLOOD BANK ERNESTO T ORDERABLES Final Result [facility] Department [place] [address] * LR HLA Typing (Class I and Class II) (07/29/2024 11:01 AM REFRIGERATION SERVICE TECHNICIAN) r-SSO HISTOTRAC A [place] A*03 HISTOTRAC [...] 07/30/24 HISTOT[facility]AC Blood 07/29/2024 11:0 1 AM REFRIGERATION SERVICE TECHNICIAN 08/02/2024 9:03 AM REFRIGERATION SERVICE TECHNICIAN Narrative HISTOTRAC - 08/02/2024 9:03 AM REFRIGERATION SERVICE TECHNICIAN DNA was extracted from whole blood or buccal cell specimens, and relevant genomic regions were amplified by polymerase chain reactions (PCR). HLA typing was performed on PCR amplicons using reverse sequence-specific oligonucleotide (r-SSO) and/or sequence-specific primers (SSP) based techniques. r-SSO and SSP are FDA approved as IVD tests and validated by the [facility] HLA Laboratory. Testing performed at the [facility], [address] [place] [address], 5th floor, [place], [address]. [facility] # [id number]. Dorothy Meade, Ph.D., Pheresis Specialist, HLA Laboratory Rell Samuels M.D., Ph.D., Cloth Coverer, HLA Laboratory Licha Nieto, Ph.D., CLIA Cloth Coverer, [facility] Clinical Laboratories Current methodology comment last revised on 04/25/17. Jossie King MD LAB BLOOD ORDERABL ES Final Result HISTOTRAC * Collection Task for HLA Typing 1 (07/29/2024 11:01 AM REFRIGERATION SERVICE TECHNICIAN) HLA Class I DNA (ABC) Recipient Received Blood 07/29/2024 11:0 1 AM REFRIGERATION SERVICE TECHNICIAN 07/29/2024 11:56 AM REFRIGERATION SERVICE TECHNICIAN Jossie King MD LAB BLOOD ORDERABL ES Final Result [facility] [place] [address] * Collection Task for HLA Antibody Screen (07/29/2024 11:01 AM REFRIGERATION SERVICE TECHNICIAN) [facility] HLA Antibody Screen By Single Antigen Received Blood 07/29/2024 11:0 1 AM REFRIGERATION SERVICE TECHNICIAN 07/29/2024 11:56 AM REFRIGERATION SERVICE TECHNICIAN Jossie King MD LAB BLOOD ORDERABL ES Final Result Performing Organization Address City/[facility] Co de Phone Number [facility] [place] [place] [address] * Collection Task for HLA Typing 2, Patient (07/29/2024 11:01 AM REFRIGERATION SERVICE TECHNICIAN) [facility] HLA Class II DNA (DR, DQ, DP) Recipient Received Blood 07/29/2024 11:0 1 AM REFRIGERATION SERVICE TECHNICIAN 07/29/2024 11:56 AM REFRIGERATION SERVICE TECHNICIAN Jossie King MD LAB BLOOD ORDERABL ES Final Result Performing Organization Address City/[facility] Co de Phone Number [facility] [place] [address] * (ABNORMAL) eGFR (07/29/2024 11:01 AM REFRIGERATION SERVICE TECHNICIAN) [facility] eGFR 7(L) >=60 mL/min/1. [...] reviewed 2021. Blood 07/29/2024 11:0 1 AM REFRIGERATION SERVICE TECHNICIAN 07/29/2024 11:33 AM REFRIGERATION SERVICE TECHNICIAN us Jossie King MD LAB BLOOD ORDERABL ES Final Result [facility] One [facility] Department [place] [address] * Differential, auto (07/29/2024 11:01 AM REFRIGERATION SERVICE TECHNICIAN) Neutrophil abs 3.1 1.5 - 6.5 K/cumm Imm gran abs 0.0 0.0 - 0.1 K/cumm [facility] Lymphocyte abs 1.1 0.8 - 3.3 K/cumm [facility] Monocyte abs 0.7 0.2 - 0.8 K/cumm [facility] Eosinophil abs 0.2 0.0 - 0.5 K/cumm [facility] Basophil abs 0.0 0.0 - 0.1 K/cumm [facility] Neutrophil pct 60.3 % [facility] Comment: Interpretive Data Percent cell count reference ranges are not reported, since discordance with absolute values may lead to misinterpretation of CBC data. Current Interpretive Data was last revised on 2017. Imm gran pct 0.6 % [facility] Comment: Interpretive Data Percent cell count reference ranges are not reported, since discordance with absolute values may lead to misinterpretation of CBC data. Current Interpretive Data was last revised on 2017. Lymphocyte pct 21.4 % [facility] Comment: Interpretive Data Percent cell count reference ranges are not reported, since discordance with absolute values may lead to misinterpretation of CBC data. Current Interpretive Data was last revised on 2017. Monocyte pct 13.7 % [facility] Comment: Interpretive Data Percent cell count reference ranges are not reported, since discordance with absolute values may lead to misinterpretation of CBC data. Current Interpretive Data was last revised on 2017. Eosinophil pct 3.2 % [facility] Comment: Interpretive Data Percent cell count reference ranges are not reported, since discordance with absolute values may lead to misinterpretation of CBC data. Current Interpretive Data was last revised on 2017. Basophil pct 0.8 % [facility] Comment: Interpretive Data Percent cell count reference ranges are not reported, since discordance with absolute values may lead to misinterpretation of CBC data. Current Interpretive Data was last revised on 2017. Blood 07/29/2024 11:0 1 AM REFRIGERATION SERVICE TECHNICIAN 07/29/2024 11:34 AM REFRIGERATION SERVICE TECHNICIAN Jossie King MD LAB BLOOD ORDERABL ES Final Result [facility] Department [place] [address] * PSA screen (07/29/2024 11:01 AM REFRIGERATION SERVICE TECHNICIAN) PSA-Total 0.55 <=3.90 ng/mL Comment: Interpretive Data [...] revised 21. Blood 07/29/2024 11:0 1 AM REFRIGERATION SERVICE TECHNICIAN 07/29/2024 11:33 AM REFRIGERATION SERVICE TECHNICIAN Narrative [facility] - 07/29/2024 12:39 PM REFRIGERATION SERVICE TECHNICIAN This lab is being obtained as part of a Kidney transplant evaluation, is time sensitive, and should only be drawn during the evaluation visit at [facility] 3C Lab. Jossie King MD LAB BLOOD ORDERABL ES Final Result Performing Organization Address [facility] Co de Phone Number [facility] Department [place] [address] * (ABNORMAL) Iron profile w/ IBC (07/29/2024 11:01 AM REFRIGERATION SERVICE TECHNICIAN) [facility] Iron 62 50 - 150 mcg/dL TIBC 208(L) 250 - 400 mcg/dL [facility] Transferrin saturation 30 20 - 50 % [facility] Blood 07/29/2024 11:0 1 AM REFRIGERATION SERVICE TECHNICIAN 07/29/2024 11:33 AM REFRIGERATION SERVICE TECHNICIAN Narrative [facility] - 07/29/2024 12:10 PM REFRIGERATION SERVICE TECHNICIAN This lab is being obtained as part of a Kidney transplant evaluation, is time sensitive, and should only be drawn during the evaluation visit at [address] Lab. Jossie King MD LAB BLOOD ORDERABL ES Final Result Performing Organization Address [facility] de Phone Number [facility] Department [place] [address] * HIV 1/2 Antibody plus p24 Antigen Blood (07/29/2024 11:01 AM REFRIGERATION SERVICE TECHNICIAN) [facility] HIV 1/2 ab + p24 ag Nonreactive Nonreactive Comment:Nonreactive for HIV- 1 antigen and HIV-1/HIV-2 antibodies. No laboratory evidence of HIV infection. If acute HIV infection is suspected, consider testing for HIV-1 RNA. Current interpretive data was last revised on 22. Blood 07/29/2024 11:0 1 AM REFRIGERATION SERVICE TECHNICIAN 07/29/2024 11:32 AM REFRIGERATION SERVICE TECHNICIAN Narrative [facility] - 07/29/2024 12:13 PM REFRIGERATION SERVICE TECHNICIAN This lab is being obtained as part of a Kidney transplant evaluation, is time sensitive, and should only be drawn during the evaluation visit at [address] Lab. Jossie King MD LAB MICROBIOLOGY - GENERAL ORDERABLES Final Result Performing Organization Address [facility] Co de Phone Number [facility] Department [place] [address] * (ABNORMAL) CMV, IgG Blood (07/29/2024 11:01 AM REFRIGERATION SERVICE TECHNICIAN) Pathologist [facility] CMV IgG Positive( [...] CMV infection. Blood 07/29/2024 11:0 1 AM REFRIGERATION SERVICE TECHNICIAN 07/29/2024 11:33 AM REFRIGERATION SERVICE TECHNICIAN Narrative [facility] - 07/29/2024 1:44 PM REFRIGERATION SERVICE TECHNICIAN This lab is being obtained as part of a Kidney transplant evaluation, is time sensitive, and should only be drawn during the evaluation visit at [facility] 3C Lab. Jossie King MD LAB MICROBIOLOGY - GENERAL ORDERABLES Final Result [facility] Department [place] [address] * HLA Antibody Screen - SAB (Class I and Class II) (07/29/2024 11:01 AM REFRIGERATION SERVICE TECHNICIAN) Pathologist [facility] Class I Treatment [...] DR52 HISTOTRAC Blood 07/29/2024 11:0 1 AM REFRIGERATION SERVICE TECHNICIAN 08/02/2024 9:46 AM REFRIGERATION SERVICE TECHNICIAN Narrative [facility] - 08/02/2024 9:46 AM REFRIGERATION SERVICE TECHNICIAN Single-antigen HLA antibody screen is performed on serum samples using a method developed and validated by the [facility] HLA laboratory based on an FDA-approved IVD kit (LABScreen Single-Antigen, [employer], [place], [place]). All patient serum samples are pretreated with EDTA before the screen to prevent complement interference. Additional serum treatments, such as adsorption and DTT treatment, may be performed as indicated. Interpretive comments: Low risk: MFI [id number]. Moderate risk: MFI 3881-5118. Increased risk: MFI >/= 5000. The presence [...] the [facility], [address] [place] [address], 5th floor, [facility], [place], [address]. [place] # [id number]. Dorothy Meade, Ph.D., Pheresis Specialist, HLA Laboratory Rell Samuels M.D., Ph.D., Cloth Coverer, HLA Laboratory Licha Nieto, Ph.D., CLIA Cloth Coverer, [facility] Clinical Laboratories Current methodology and interpretive comments last revised on 09/15/2022. Jossie King MD LAB BLOOD ORDERABL ES Final Result [facility] * (ABNORMAL) CBC with auto differential (07/29/2024 11:01 AM REFRIGERATION SERVICE TECHNICIAN) [facility] WBC 5.1 3.8 - 9.9 K/cumm Hgb 11.5(L) 13.0 - 17.5 g/dL [facility] Hct 34.4(L) 38.9 - 50.3 % [facility] Plt 208 150 - 400 K/cumm [facility] MPV 10.8 9.1 - 12.3 fL [facility] RBC 3.76(L) 4.30 - 5.80 M/cumm [facility] MCV 91.5 81.3 - 96.4 fL [facility] MCH 30.6 27.1 - 33.3 pg [facility] MCHC 33.4 32.3 - 35.7 g/dL [facility] RDW CV 14.3 11.1 - 14.9 % [facility] RDW SD 47.9 35.7 - 48.1 fL [facility] NRBC abs 0.00 0.00 - 0.01 K/cumm [facility] Blood 07/29/2024 11:0 1 AM REFRIGERATION SERVICE TECHNICIAN 07/29/2024 11:34 AM REFRIGERATION SERVICE TECHNICIAN Narrative [facility] - 07/29/2024 11:45 AM REFRIGERATION SERVICE TECHNICIAN This lab is being obtained as part of a Kidney transplant evaluation, is time sensitive, and should only be drawn during the evaluation visit at [facility] 3CAM Lab. Jossie King MD LAB BLOOD ORDERABL ES Final Result [facility] One [facility] Department [place] [address] * Hepatitis C antibody Blood (07/29/2024 11:01 AM REFRIGERATION SERVICE TECHNICIAN) [facility] Hep C Ab Nonreactive Nonreactive Comment:Antibodies to HCV no t detected. Does NOT exclude the possibility of recent exposure to HCV. Current interpretive data was last revised on 22 Blood 07/29/2024 11:0 1 AM REFRIGERATION SERVICE TECHNICIAN 07/29/2024 11:32 AM REFRIGERATION SERVICE TECHNICIAN Narrative [facility] - 07/29/2024 12:47 PM REFRIGERATION SERVICE TECHNICIAN This lab is being obtained as part of a Kidney transplant evaluation, is time sensitive, and should only be drawn during the evaluation visit at [address] Lab. Jossie King MD LAB MICROBIOLOGY - GENERAL ORDERABLES Final Result Performing Organization Address [facility] Co de Phone Number [facility] Department [place] [address] * (ABNORMAL) Madiha-Morris virus (EBV) antibody panel Blood (07/29/2024 11:01 AM REFRIGERATION SERVICE TECHNICIAN) EBV nuclear Ab Positive(A) Negative Comment:Indicates the presen ce of detectable IgG antibody to EBV Nuclear Antigen. EBV VCA IgG Positive(A) Negative [facility] Comment:Indicates the presen ce of antibody; 90% of the adult population will have been infected with EBV sometime in the past. EBV VCA IgM Negative Negative [facility] Comment:No detectable IgM an tibody to EBV-VCA. A negative result indicates no current infection with EBV. If clinical suspicion of acute EBV infection is present, testing should be repeated after one week. EBV interp Past Infection [facility] Blood 07/29/2024 11:0 1 AM REFRIGERATION SERVICE TECHNICIAN 07/29/2024 11:33 AM REFRIGERATION SERVICE TECHNICIAN Narrative [facility] - 07/29/2024 1:43 PM REFRIGERATION SERVICE TECHNICIAN This lab is being obtained as part of a Kidney transplant evaluation, is time sensitive, and should only be drawn during the evaluation visit at [address] Lab. Jossie King MD LAB MICROBIOLOGY - GENERAL ORDERABLES Final Result Performing Organization Address City/[facility]/ZIP Co de Phone Number [facility] Department [place] [address] * Hepatitis B core antibody, total Blood (07/29/2024 11:01 AM REFRIGERATION SERVICE TECHNICIAN) Hep B core IgG/IgM Nonreactive Nonreactive Blood 07/29/2024 11:0 1 AM REFRIGERATION SERVICE TECHNICIAN 07/29/2024 11:32 AM REFRIGERATION SERVICE TECHNICIAN Narrative [facility] - 07/29/2024 12:47 PM REFRIGERATION SERVICE TECHNICIAN This lab is being obtained as part of a Kidney transplant evaluation, is time sensitive, and should only be drawn during the evaluation visit at [address] Jossie King MD LAB MICROBIOLOGY - GENERAL ORDERABLES Final Result Performing Organization Address City/[facility] Co de Phone Number [facility] Department [place] [address] * Protein, urine, random (07/29/2024 11:01 AM REFRIGERATION SERVICE TECHNICIAN) Pathologist [facility] Protein, ur, quant 121.2 mg/dL Comment: Interpretive Data No reference range established. Current interpretive data was last revised 2019. Urine 07/29/2024 11:0 1 AM REFRIGERATION SERVICE TECHNICIAN 07/29/2024 11:32 AM REFRIGERATION SERVICE TECHNICIAN Narrative [facility] - 07/29/2024 12:18 PM REFRIGERATION SERVICE TECHNICIAN This lab is being obtained as part of a Kidney transplant evaluation, is time sensitive, and should only be drawn during the evaluation visit at [address] Jossie King MD LAB URINE ORDERABL ES Final Result Performing Organization Address City/[facility]/ZIP Co de Phone Number [facility] Department [place] [address] * Creatinine, urine, random (07/29/2024 11:01 AM REFRIGERATION SERVICE TECHNICIAN) Pathologist [facility] Creatinine Ur 167.1 mg/dL Comment: Interpretive Data No reference range established. Current interpretive data was last revised 2019. Urine 07/29/2024 11:0 1 AM REFRIGERATION SERVICE TECHNICIAN 07/29/2024 11:32 AM REFRIGERATION SERVICE TECHNICIAN Narrative [facility] - 07/29/2024 12:18 PM REFRIGERATION SERVICE TECHNICIAN This lab is being obtained as part of a Kidney transplant evaluation, is time sensitive, and should only be drawn during the evaluation visit at [address] Jossie King MD LAB URINE ORDERABL ES Final Result Performing Organization Address [facility] de Phone Number [facility] [place] [address] * HSV 2 IgG Antibody Blood (07/29/2024 11:01 AM REFRIGERATION SERVICE TECHNICIAN) HSV 2 IgG Nonreactive Nonreactive Comment: Interpretive Data 1. Nonreactive: No detectable IgG antibody to HSV-2. 2. Equivocal: Presence or absence of detectable antibodies to HSV-2 cannot be determined and the test should be repeated. 3. Reactive: Indicates presence of detectable IgG antibody to HSV-2. Current interpretive data was last revised on 2022. Blood 07/29/2024 11:0 1 AM REFRIGERATION SERVICE TECHNICIAN 07/29/2024 11:33 AM REFRIGERATION SERVICE TECHNICIAN Narrative [facility] - 07/29/2024 1:44 PM REFRIGERATION SERVICE TECHNICIAN This lab is being obtained as part of a Kidney transplant evaluation, is time sensitive, and should only be drawn during the evaluation visit at [address] Jossie King MD LAB MICROBIOLOGY - GENERAL ORDERABLES Final Result Performing Organization Address [facility] de Phone Number [facility] [place] [address] * (ABNORMAL) HSV 1 IgG Antibody Blood (07/29/2024 11:01 AM REFRIGERATION SERVICE TECHNICIAN) HSV 1 IgG Reactive( A) Nonreactive Comment: Interpretive Data 1. Nonreactive: No detectable IgG antibody to HSV-1. 2. Equivocal: Presence or absence of detectable antibodies to HSV-1 cannot be determined and the test should be repeated. 3. Reactive: Indicates presence of detectable IgG antibody to HSV-1. Current interpretive data was last revised on 2016. Blood 07/29/2024 11:0 1 AM REFRIGERATION SERVICE TECHNICIAN 07/29/2024 11:33 AM REFRIGERATION SERVICE TECHNICIAN Narrative [facility] 07/29/2024 1:44 PM REFRIGERATION SERVICE TECHNICIAN This lab is being obtained as part of a Kidney transplant evaluation, is time sensitive, and should only be drawn during the evaluation visit at [address] Jossie King MD LAB MICROBIOLOGY - GENERAL ORDERABLES Final Result Performing Organization Address [facility] de Phone Number [facility] [place] [address] * RPR Blood (07/29/2024 11:01 AM REFRIGERATION SERVICE TECHNICIAN) Pathologist [facility] RPR Nonreactive Nonreactive Blood 07/29/2024 11:0 1 AM REFRIGERATION SERVICE TECHNICIAN 07/29/2024 11:33 AM REFRIGERATION SERVICE TECHNICIAN Narrative [facility] 07/29/2024 12:34 PM REFRIGERATION SERVICE TECHNICIAN This lab is being obtained as part of a Kidney transplant evaluation, is time sensitive, and should only be drawn during the evaluation visit at [address] Jossie King MD LAB MICROBIOLOGY - GENERAL ORDERABLES Final Result Performing Organization Address [facility] de Phone Number [facility] [place] [address] * Hepatitis B surface antibody (immune status) Blood (07/29/2024 11:01 AM REFRIGERATION SERVICE TECHNICIAN) HBsAb (immune status) Reactive Comment:This result is consi stent with immunity to Hepatitis B Virus when used in the setting of routine screening. Current interpretive data was last revised on 22 Blood 07/29/2024 11:0 1 AM REFRIGERATION SERVICE TECHNICIAN 07/29/2024 11:32 AM REFRIGERATION SERVICE TECHNICIAN Narrative [facility] 07/29/2024 12:47 PM REFRIGERATION SERVICE TECHNICIAN This lab is being obtained as part of a Kidney transplant evaluation, is time sensitive, and should only be drawn during the evaluation visit at [address]. Jossie King MD LAB MICROBIOLOGY - GENERAL ORDERABLES Final Result Performing Organization Address [facility] de Phone Number [facility] [place] [address] * Hepatitis B Surface Antigen Blood (07/29/2024 11:01 AM REFRIGERATION SERVICE TECHNICIAN) Pathologist [facility] HepBsAg Nonreactive Nonreactive Blood 07/29/2024 11:0 1 AM REFRIGERATION SERVICE TECHNICIAN 07/29/2024 11:32 AM REFRIGERATION SERVICE TECHNICIAN Narrative [facility] - 07/29/2024 12:47 PM REFRIGERATION SERVICE TECHNICIAN This lab is being obtained as part of a Kidney transplant evaluation, is time sensitive, and should only be drawn during the evaluation visit at [address] Jossie King MD LAB MICROBIOLOGY - GENERAL ORDERABLES Final Result Performing Organization Address [facility] de Phone Number [facility] Department [place] [address] * (ABNORMAL) aPTT (07/29/2024 11:01 AM REFRIGERATION SERVICE TECHNICIAN) [facility] aPTT 61(H) 28 - 38 sec Comment: Interpretive Data Heparin therapeutic range: 66.0 - 100.0 seconds. Range based on correlation with therapeutic heparin activity range of 0.3 - 0.7 Units/mL. Current interpretive data was last revised on 2023. Blood 07/29/2024 11:0 1 AM REFRIGERATION SERVICE TECHNICIAN 07/29/2024 11:32 AM REFRIGERATION SERVICE TECHNICIAN Narrative [facility] - 07/29/2024 11:42 AM REFRIGERATION SERVICE TECHNICIAN This lab is being obtained as part of a Kidney transplant evaluation, is time sensitive, and should only be drawn during the evaluation visit at [address] Jossie King MD LAB BLOOD ORDERABL ES Final Result Performing Organization Address [facility] de Phone Number [facility] [place] [address] * (ABNORMAL) Protime-INR (07/29/2024 11:01 AM REFRIGERATION SERVICE TECHNICIAN) PT 50.6(H) 9.7 - 13.0 sec INR 4.54(H) 0.90 - 1.20 [facility] Comment: Interpretive data Oral anticoagulant therapeutic ranges: Venous thromboembolism prophylaxis or treatment: 2.0-3.0 CARDIOLOGY Standard range: 2.0-3.0 High-intensity range: 2.5-3.5 Refer to indication-specific guidelines for appropriate target ranges for prosthetic heart valve replacement. Current interpretive data was last revised on 2019. Blood 07/29/2024 11:0 1 AM REFRIGERATION SERVICE TECHNICIAN 07/29/2024 11:32 AM REFRIGERATION SERVICE TECHNICIAN Narrative [facility] - 07/29/2024 11:42 AM REFRIGERATION SERVICE TECHNICIAN This lab is being obtained as part of a Kidney transplant evaluation, is time sensitive, and should only be drawn during the evaluation visit at [address] Lab. Jossie King MD LAB BLOOD ORDERABL ES Final Result Performing Organization Address [facility] Co de Phone Number [facility] [place] [address] * Varicella Zoster IgG antibody Blood (07/29/2024 11:01 AM REFRIGERATION SERVICE TECHNICIAN) Pathologist [facility] VZV IgG Reactive Reactive Comment:Reactive: Results diego ggest response to immunization or prior exposure to the virus. Blood 07/29/2024 11:0 1 AM REFRIGERATION SERVICE TECHNICIAN 07/29/2024 11:33 AM REFRIGERATION SERVICE TECHNICIAN Narrative [facility] 07/29/2024 1:45 PM REFRIGERATION SERVICE TECHNICIAN This lab is being obtained as part of a Kidney transplant evaluation, is time sensitive, and should only be drawn during the evaluation visit at [address] Lab. Jossie King MD LAB MICROBIOLOGY - GENERAL ORDERABLES Final Result Performing Organization Address City/[facility]/ZIP Co de Phone Number [facility] [place] [address] * (ABNORMAL) Uric acid (07/29/2024 11:01 AM REFRIGERATION SERVICE TECHNICIAN) Pathologist [facility] Uric acid 2.0(L) 3.0 - 8.0 mg/dL Blood 07/29/2024 11:0 1 AM REFRIGERATION SERVICE TECHNICIAN 07/29/2024 11:33 AM REFRIGERATION SERVICE TECHNICIAN Narrative [facility] - 07/29/2024 12:10 PM REFRIGERATION SERVICE TECHNICIAN This lab is being obtained as part of a Kidney transplant evaluation, is time sensitive, and should only be drawn during the evaluation visit at [address] Lab. Jossie King MD LAB BLOOD ORDERABL ES Final Result Performing Organization Address [facility] [place] [address] * (ABNORMAL) Phosphorus (07/29/2024 11:01 AM REFRIGERATION SERVICE TECHNICIAN) [facility] Phosphorus, pl 5.1(H) 2.3 - 4.5 mg/dL Blood 07/29/2024 11:0 1 AM REFRIGERATION SERVICE TECHNICIAN 07/29/2024 11:33 AM REFRIGERATION SERVICE TECHNICIAN Narrative [facility] - 07/29/2024 12:10 PM REFRIGERATION SERVICE TECHNICIAN This lab is being obtained as part of a Kidney transplant evaluation, is time sensitive, and should only be drawn during the evaluation visit at [address] Lab. Jossie King MD LAB BLOOD ORDERABL ES Final Result Performing Organization Address City/[facility]/ZIP Co de Phone Number [facility] [place] [place] [address] * (ABNORMAL) PTH (07/29/2024 11:01 AM REFRIGERATION SERVICE TECHNICIAN) [facility] PTH 444(H) 15 - 65 pg/mL Blood 07/29/2024 11:0 1 AM REFRIGERATION SERVICE TECHNICIAN 07/29/2024 11:34 AM REFRIGERATION SERVICE TECHNICIAN Narrative [facility] - 07/29/2024 12:02 PM REFRIGERATION SERVICE TECHNICIAN This lab is being obtained as part of a Kidney transplant evaluation, is time sensitive, and should only be drawn during the evaluation visit at [address] Lab. Jossie King MD LAB BLOOD ORDERABL ES Final Result Performing Organization Address [facility] de Phone Number [facility] [place] [address] * (ABNORMAL) Hemoglobin A1c (07/29/2024 11:01 AM REFRIGERATION SERVICE TECHNICIAN) Pathologist [facility] Hgb A1C 9.0(H) 4.0 - 5.6 % Estimated Average Glucose 212 mg/dL [facility] Comment: The ADA recommends reporting an estimated Average Glucose (eAG) with all Hemoglobin A1c results using the equation derived from a study of 507 normal and diabetic adults. Minority populations were underrepresented and children were not included. (Diabetes Care 2020; 43(S1): S66-S76). The eAG is not equivalent to a fasting glucose. Blood 07/29/2024 11:0 1 AM REFRIGERATION SERVICE TECHNICIAN 07/29/2024 11:34 AM REFRIGERATION SERVICE TECHNICIAN Narrative [facility] - 07/29/2024 11:53 AM REFRIGERATION SERVICE TECHNICIAN This lab is being obtained as part of a Kidney transplant evaluation, is time sensitive, and should only be drawn during the evaluation visit at [address] Jossie King MD LAB BLOOD ORDERABL ES Final Result Performing Organization Address [facility] Co de Phone Number [facility] [place] [address] * Gamma GT (07/29/2024 11:01 AM REFRIGERATION SERVICE TECHNICIAN) Pathologist [facility] GGT 22 10 - 50 Units/L Blood 07/29/2024 11:0 1 AM REFRIGERATION SERVICE TECHNICIAN 07/29/2024 11:33 AM REFRIGERATION SERVICE TECHNICIAN Narrative [facility] - 07/29/2024 12:40 PM REFRIGERATION SERVICE TECHNICIAN This lab is being obtained as part of a Kidney transplant evaluation, is time sensitive, and should only be drawn during the evaluation visit at [address] Jossie King MD LAB BLOOD ORDERABL ES Final Result Performing Organization Address [facility] [place] [address] * (ABNORMAL) Ferritin (07/29/2024 11:01 AM REFRIGERATION SERVICE TECHNICIAN) Ferritin 761(H) 30 - 400 ng/mL Blood 07/29/2024 11:0 1 AM REFRIGERATION SERVICE TECHNICIAN 07/29/2024 11:33 AM REFRIGERATION SERVICE TECHNICIAN Narrative [facility] - 07/29/2024 12:10 PM REFRIGERATION SERVICE TECHNICIAN This lab is being obtained as part of a Kidney transplant evaluation, is time sensitive, and should only be drawn during the evaluation visit at [address] Jossie King MD LAB BLOOD ORDERABL ES Final Result Performing Organization Address [facility] [place] [address] * (ABNORMAL) Lipid panel (07/29/2024 11:01 AM REFRIGERATION SERVICE TECHNICIAN) Cholesterol 114 30 - 199 mg/dL Comment: [...] revised on 2018. Triglycerides 66 <=149 mg/dL [facility] Comment: Interpretive Data Ages < or = [...] revised on 2018. HDL 29(L) >=40 mg/dL [facility] Comment: Interpretive Data Ages < or = [...] on 2018. LDL, calculated 71 <=129 mg/dL [facility] Comment: Interpretive Data Ages < or = [...] revised on 2024. Non-HDL Cholesterol 85 mg/dL [facility] Comment: Interpretive Data Ages < [...] last revised on 2018. Chol/HDL ratio 4 [facility] Blood 07/29/2024 11:0 1 AM REFRIGERATION SERVICE TECHNICIAN 07/29/2024 11:33 AM REFRIGERATION SERVICE TECHNICIAN Narrative [facility] - 07/29/2024 12:10 PM REFRIGERATION SERVICE TECHNICIAN This lab is being obtained as part of a Kidney transplant evaluation, is time sensitive, and should only be drawn during the evaluation visit at [facility] Lab. Jossie King MD LAB BLOOD ORDERABL ES Final Result [facility] Department [place] [address] * (ABNORMAL) Comprehensive metabolic panel (07/29/2024 11:01 AM REFRIGERATION SERVICE TECHNICIAN) Sodium 136 135 - 145 mmol/L Potassium, pl 4.6 3.3 - 4.9 mmol/L [facility] Chloride 93(L) 97 - 110 mmol/L [facility] CO2 26 22 - 32 mmol/L [facility] Anion gap 17(H) 2 - 15 mmol/L [facility] BUN 65(H) 6 - 25 mg/dL [facility] Creatinine 8.07(H) 0.80 - 1.30 mg/dL [facility] Glucose 280(H) 70 - 199 mg/dL [facility] Comment: Interpretive Data Fasting glucose >/= 126 [...] 2022. Calcium 9.4 8.5 - 10.3 mg/dL [facility] Bilirubin, total 0.3 0.1 - 1.2 mg/dL [facility] Protein, pl 7.2 6.5 - 8.5 g/dL [facility] Albumin 3.8 3.5 - 5.0 g/dL [facility] Alk phos 99 40 - 130 Units/L [facility] ALT 30 7 - 55 Units/L [facility] AST 31 10 - 50 Units/L [facility] Blood 07/29/2024 11:0 1 AM REFRIGERATION SERVICE TECHNICIAN 07/29/2024 11:33 AM REFRIGERATION SERVICE TECHNICIAN Narrative [facility] - 07/29/2024 12:10 PM REFRIGERATION SERVICE TECHNICIAN This lab is being obtained as part of a Kidney transplant evaluation, is time sensitive, and should only be drawn during the evaluation visit at [facility] Lab. us Jossie King MD LAB BLOOD ORDERABL ES Final Result [facility] Department [place] [address] * (ABNORMAL) Oxalate (oxalic acid) (07/29/2024 10:53 AM REFRIGERATION SERVICE TECHNICIAN) [facility] Oxalate 12.3(H) <=2.0 mcmol/L [place] ref Lab Comment: High value suggestive of Primary Hyperoxaluria. However, if the patient has chronic kidney disease (GFR<30 mL/min/1.73m2), plasma oxalate values up to 30 mcmol/L can be normal. The [facility] Hyperoxaluria Center is available to review case details and answer any questions regarding interpretation ([email or web address]; [phone]) ADDITIONAL INFORMATION This test has been modified from the cotton dispatcher's instructions. Its performance characteristics were determined by [facility] in a manner consistent with CLIA requirements. This test has not been cleared or approved by the U.S. Food and Drug Administration. Test Performed by: [facility] - [address] [address] Accounting Technician: Jairo Higgins Ph.D.; CLIA# [id number] Blood 07/29/2024 10:5 3 AM REFRIGERATION SERVICE TECHNICIAN 07/29/2024 11:37 AM REFRIGERATION SERVICE TECHNICIAN us Jossie King MD LAB BLOOD ORDERABL ES Final Result [facility] Department [place] [address] [place] ref [facility] * (ABNORMAL) Urinalysis reflex to microscopic (07/29/2024 10:53 AM REFRIGERATION SERVICE TECHNICIAN) Color, ur Yellow Yellow Clarity, ur Cloudy(A) Clear [facility] Specific gravity, ur 1.022 1.003 - 1.030 [facility] pH, urine 6.0 [facility] Comment: Interpretive Data U rine pH is affected by diet, medications, systemic acid-base disturbances, and renal tubular function. pH may affect urinary stone formation. For example, urine pH below 6.0 may help reduce the tendency for calcium phosphate stones and pH greater than 6.0 may reduce the tendency for uric acid stone formation. Source: [facility] Current Interpretive Data was last revised on 2017 Protein, ur ql 2+(A) Negative [facility] Glucose, ur ql 4+(A) Negative [facility] Ketones, ur Negative Negative [facility] Bilirubin, ur Negative Negative [facility] Blood, ur 3+(A) Negative [facility] Urobilinogen, ur <2.0 <2.0 mg/dL [facility] Nitrite, ur Negative Negative [facility] Leukocyte esterase, ur 2+(A) Negative [facility] UA reflex comment Reflex to microscopic UA will be performed. [facility] Urine 07/29/2024 10:5 3 AM REFRIGERATION SERVICE TECHNICIAN 07/29/2024 11:27 AM REFRIGERATION SERVICE TECHNICIAN Narrative [facility] - 07/29/2024 11:29 AM REFRIGERATION SERVICE TECHNICIAN This lab is being obtained as part of a Kidney transplant evaluation, is time sensitive, and should only be drawn during the evaluation visit at [facility] Lab. Jossie King MD LAB URINE ORDERABL ES Final Result Performing Organization Address [facility] de Phone Number [facility] Department [place] [address] * (ABNORMAL) Urinalysis, microscopic only (07/29/2024 10:53 AM REFRIGERATION SERVICE TECHNICIAN) WBC, ur 21-50(A) 0 - 5 /HPF RBC, ur >50(A) 0 - 2 /HPF [facility] Epithelial cells, squamous, ur 1-5 0 - 5 /HPF [facility] Bacteria, ur Trace(A) [facility] Mucous, ur Present(A) [facility] Hyaline casts, ur 1-5 0 - 10 /LPF [facility] Urine 07/29/2024 10:5 3 AM REFRIGERATION SERVICE TECHNICIAN 07/29/2024 11:27 AM REFRIGERATION SERVICE TECHNICIAN Jossie King MD LAB URINE ORDERABL ES Final Result Performing Organization Address [facility] de Phone Number [facility] Department [place] [address] * (ABNORMAL) TSH (10/27/2023 2:30 AM REFRIGERATION SERVICE TECHNICIAN) Thyroid Stimulating Hormone 13.20(H) 0.30 - 4.20 mcIUnit/mL Blood 10/27/2023 2:30 AM REFRIGERATION SERVICE TECHNICIAN 10/27/2023 2:42 AM REFRIGERATION SERVICE TECHNICIAN Lorne Mcnulty MD LAB BLOOD ORDERABLES Final Result [facility] [address] Department [place] [address] from Last 3 Months or Most Recently Relevant to Health Maintenance Insurance [employer]PA MED[employer]ARE SOLUTIONS TRANSPLANT [employer] MEDICARE RISK IDPA TRANSPLANT [employer] MED[employer]ARE RISK IDPA Advance Directives For more information, please contact: [phone] * Full Code (Latest Code Status on File) Date Activated Date Inactivated Comments 10/13/2023 11:32 PM 11/03/2023 11:42 PM * Full Code Date Activated Date Inactivated Comments 06/05/2022 6:17 AM 06/29/2022 6:20 PM * Full Code Date Activated Date Inactivated Comments 06/05/2022 4:43 AM 06/05/2022 4:43 AM * Full Code Date Activated Date Inactivated Comments 06/04/2022 9:55 PM 06/05/2022 4:43 AM Care Teams Pressure Dispatcher Relationship Specialty Start Date End Date Aditya Castro MD 9 [facility] [place] [address] PCP - General 10/17/19 Alondra Lambert, RN [address] [facility] [address] [place] [address] Litigation Manager 03/06/24 Hamlet Ortega Jr., MD [facility] [place] [address] Consulting Physician Cardiovascular Disease 05/10/24 Leandro Reyes MD [address] [place] [address] Consulting Physician Nephrology 07/30/24
--- OUTSIDE RECORDS SUMMARY | 2024-10-24 20:59 | XMS_ITS | Encounter Summary ---
Author Organization [facility] Lu[facility] utimildred Address [address] [place] [address] Phone Care Team Providers Care Therapeutic Activities Services Worker Name Role Phone Unavailable Primary Care Provider Unavailabl e Reason for Visit * Reason Comments Med Refill Encounter Details Date Type Department Care Team (Late st Contact Info) Description 01/25/2019 Refill [facility] [address] [facility] [address] [place] [address] Leandro Reyes MD [address] [address] Social History Tobacco Use Types [...]
--- OUTSIDE RECORDS SUMMARY | 2024-10-24 20:59 | XMS_ITS ---
Author Organization [facility] Address [address] [place] [address] Care Team Providers Care Rn Lvn Name Role Phone Aditya Castro MD Primary Care Provider [phone] Alondra Lambert RN Unavailable Shannon Brock MD, [place] P. Unavailable Leandro Reyes MD Unavailable [phone] Dialysis Access Sites Type Status Location Placement Date Removal Da te Peritoneal Dialysis Catheter Continuous cycling Active Hemodialysis Cath Double Inactive Right N emiliano (side) - Anterior 06/18/2022 06/25/2022 Hemodialysis Cath Triple Inactive Neck - Anterior 202106/16/2022 Procedures Procedure Name Priority Date/Time Associated Diagnosis Comments CARDIOLOGY DOCUMENT SCAN Routine 09/08/2024 11:26 AM HAND ALTERATIONS TAILOR CARDIOLOGY DOCUMENT SCAN Routine 09/07/2024 11:24 AM HAND ALTERATIONS TAILOR CARDIOLOGY DOCUMENT SCAN Routine 09/05/2024 11:06 AM HAND ALTERATIONS TAILOR HLA SOLID ORGAN TYPING REPORT 08/02/2024 9:04 AM HAND ALTERATIONS TAILOR SIX MINUTE WALK Routine 07/29/2024 2:46 PM HAND ALTERATIONS TAILOR End stage renal disease (HCC) CT ABDOMEN PELVIS WO CONTRAST Schedule Routine, Read Routine (OP Routine) 07/29/2024 12:43 PM HAND ALTERATIONS TAILOR End stage renal disease (HCC) XR ORTHOPANTOGRAM/PANOR EX Schedule Routine, Read Routine (OP Routine) 07/29/2024 11:44 AM HAND ALTERATIONS TAILOR End stage renal disease (HCC) TYPE AND SCREEN Routine 07/29/2024 11:23 AM HAND ALTERATIONS TAILOR End stage renal disease (HCC) ECG 12-LEAD Routine 07/29/2024 11:14 AM HAND ALTERATIONS TAILOR End stage renal disease (HCC) ABO/RH Routine 07/29/2024 11:13 AM HAND ALTERATIONS TAILOR EGFR Routine 07/29/2024 11:01 AM HAND ALTERATIONS TAILOR End stage renal disease (HCC) DIFFERENTIAL AUTO Routine 07/29/2024 11: 01 AM HAND ALTERATIONS TAILOR End stage renal disease (HCC) CBC WITH AUTO DIFFERENTIAL Routine 07/29/2024 11:01 AM HAND ALTERATIONS TAILOR End stage renal disease (HCC) COMPREHENSIVE METABOLIC PANEL Routine 07/29/2024 11:01 AM HAND ALTERATIONS TAILOR End stage renal disease (HCC) CREATININE, URINE, RANDOM Routine 07/29/2024 11:01 AM HAND ALTERATIONS TAILOR End stage renal disease (HCC) FERRITIN Routine 07/29/2024 11:01 AM HAND ALTERATIONS TAILOR End stage renal disease (HCC) GAMMA GT Routine 07/29/2024 11:01 AM HAND ALTERATIONS TAILOR End stage renal disease (HCC) HEMOGLOBIN A1C Routine 07/29/2024 11:01 AM HAND ALTERATIONS TAILOR End stage renal disease (HCC) IRON PROFILE W/ IBC Routine 07/29/2024 1 1:01 AM HAND ALTERATIONS TAILOR End stage renal disease (HCC) LIPID PANEL Routine 07/29/2024 11:01 AM HAND ALTERATIONS TAILOR End stage renal disease (HCC) PTH Routine 07/29/2024 11:01 AM HAND ALTERATIONS TAILOR End stage renal disease (HCC) APTT Routine 07/29/2024 11:01 AM HAND ALTERATIONS TAILOR End stage renal disease (HCC) PHOSPHORUS Routine 07/29/2024 11:01 AM HAND ALTERATIONS TAILOR End stage renal disease (HCC) PROTEIN, URINE, RANDOM Routine 07/29/2024 11:01 AM HAND ALTERATIONS TAILOR End stage renal disease (HCC) PROTIME-INR Routine 07/29/2024 11:01 AM HAND ALTERATIONS TAILOR End stage renal disease (HCC) URIC ACID Routine 07/29/2024 11:01 AM HAND ALTERATIONS TAILOR End stage renal disease (HCC) PSA SCREEN Routine 07/29/2024 11:01 AM HAND ALTERATIONS TAILOR End stage renal disease (HCC) LR HLA TYPING (CLASS I AND CLASS II) Routine 07/29/2024 11:01 AM HAND ALTERATIONS TAILOR End stage renal disease (HCC) HLA CLASS I DNA (ABC) RECIPIENT Routine 07/29/2024 11:01 AM HAND ALTERATIONS TAILOR End stage renal disease (HCC) HLA CLASS II DNA (DR, DQ, DP) RECIPIENT Routine 07/29/2024 11:01 AM HAND ALTERATIONS TAILOR End stage renal disease (HCC) HLA ANTIBODY SCREEN - SAB (CLASS I AND CLASS II) Routine 07/29/2024 11:01 AM HAND ALTERATIONS TAILOR End stage renal disease (HCC) HLA ANTIBODY SCREEN BY SINGLE ANTIGEN Routine 07/29/2024 11:01 AM HAND ALTERATIONS TAILOR End stage renal disease (HCC) CMV, IGG Routine 07/29/2024 11:01 AM HAND ALTERATIONS TAILOR End stage renal disease (HCC) MADIHA-MORRIS VIRUS VCA ANTIBODY PANEL Routine 07/29/2024 11:01 AM HAND ALTERATIONS TAILOR End stage renal disease (HCC) HIV 1/2 ANTIBODY PLUS P24 ANTIGEN Routine 07/29/2024 11:01 AM HAND ALTERATIONS TAILOR End stage renal disease (HCC) HSV 1 ANTIBODY, IGG Routine 07/29/2024 1 1:01 AM HAND ALTERATIONS TAILOR End stage renal disease (HCC) HSV 2 ANTIBODY, IGG Routine 07/29/2024 1 1:01 AM HAND ALTERATIONS TAILOR End stage renal disease (HCC) HEPATITIS B CORE ANTIBODY, TOTAL Routine 07/29/2024 11:01 AM HAND ALTERATIONS TAILOR End stage renal disease (HCC) HEPATITIS B SURFACE ANTIBODY (IMMUNE STATUS) Routine 07/29/2024 11:01 AM HAND ALTERATIONS TAILOR End stage renal disease (HCC) HEPATITIS B SURFACE ANTIGEN Routine 07/29/2024 11:01 AM HAND ALTERATIONS TAILOR End stage renal disease (HCC) HEPATITIS C ANTIBODY Routine 07/29/2024 11:01 AM HAND ALTERATIONS TAILOR End stage renal disease (HCC) RPR Routine 07/29/2024 11:01 AM HAND ALTERATIONS TAILOR End stage renal disease (HCC) VARICELLA ZOSTER ANTIBODY, IGG Routine 07/29/2024 11:01 AM HAND ALTERATIONS TAILOR End stage renal disease (HCC) URINALYSIS, MICROSCOPIC ONLY Routine 07/29/2024 10:53 AM HAND ALTERATIONS TAILOR End stage renal disease (HCC) OXALATE Routine 07/29/2024 10:53 AM HAND ALTERATIONS TAILOR ESRD (end stage renal disease) (HCC) URINALYSIS AND REFLEX TO MICROSCOPIC Routine 07/29/2024 10:53 AM HAND ALTERATIONS TAILOR End stage renal disease (HCC) TSH Routine 10/27/2023 2:30 AM HAND ALTERATIONS TAILOR from Last 3 Months or Most Recently [...] 1 tablet (25 mcg total) by mouth pipe changer before breakfast 30 tablet 1 11/04/19 24 [...] mg SL tablet 12/28/19 18 Active peg [id number] ycerin (ARTIFICAL TEARS) 1-0.2-0.2 % ophthalmic solution 1 drop 4 (four) times a day 07/07/20 22 Active potassium chloride ER 20 mEq CR tablet Active Active Problems Problem Noted Date Diagnosed Date End stage renal disease 07/29/2024 Nonrheumatic aortic valve stenosis 11/22/2023 Status post aortic valve replacement 11/22/2023 Status post coronary artery bypass grafting 10/2023 CAD in [place] artery 10/13/2023 Anemia 06/22/2022 Assessment & Plan (06/29/2022 10:12 AM HAND ALTERATIONS TAILOR): Stable, likely 2/2 anemia from ESRD, no [...] 06/22/2022 Assessment & Plan (06/29/2022 10:12 AM HAND ALTERATIONS TAILOR): - Renal consulted, s/p CRRT in the ICU now back on PD. Tolerated well and nephrology following - Trialysis catheter removed - Continue vitamins for renal bone mineral disease. Assessment & Plan (06/28/2022 3:29 PM HAND ALTERATIONS TAILOR): - Renal consulted, s/p CRRT in the [...] 06/22/2022 Assessment & Plan (06/29/2022 10:12 AM HAND ALTERATIONS TAILOR): C/b cardiogenic shock requiring impella in the setting of cath and AHRF 2/2 pulmonary edema, now resolved. TTE demonstrating recovered EF 65% with grade I diastolic dysfunction. - metop as above - continue low dose losartan 12.5mg daily, ok per nephro. Tolerating well - volume management per PD Assessment & Plan (06/28/2022 3:29 PM HAND ALTERATIONS TAILOR): C/b cardiogenic shock requiring impella in the [...] 06/22/2022 Assessment & Plan (06/29/2022 10:12 AM HAND ALTERATIONS TAILOR): Converted to NSR overnight on 06/24. CHADsVASc of 4 not on anticoagulation prior to admission. - cardiology consulted - recommended ongoing rate control - holding off on a/c with high risk for bleeding while on DAPT - reduced metop to 25mg BID in the setting of hypotension, HR 70s NSR Assessment & Plan (06/28/2022 3:30 PM HAND ALTERATIONS TAILOR): Converted to NSR overnight on 06/24. CHADsVASc [...] 08/22/2021 Assessment & Plan (06/29/2022 10:11 AM HAND ALTERATIONS TAILOR): With recurrent chest pain post-cath. He has [...] today Assessment & Plan (06/28/2022 3:30 PM HAND ALTERATIONS TAILOR): With recurrent chest pain post-cath. He has [...] 06/22/2022 Assessment & Plan (06/29/2022 10:11 AM HAND ALTERATIONS TAILOR): Secondary to NSTEMI, s/p Impella since removed on 06/10. Resolved. Assessment & Plan (06/23/2022 4:55 PM CDT): Secondary to NSTEMI, s/p Impella since removed on 06/10. Resolved. Assessment & Plan (06/22/2022 8:22 PM CDT): -Secondary to NSTEMI, s/p Impella since removed on 06/10. Acute hypoxemic respiratory failure 06/09/2022 Assessment & Plan (06/29/2022 10:12 AM HAND ALTERATIONS TAILOR): Secondary to ACS and flash pulmonary edema, [...] (06/10/2022): Added automatically from request for surgery [id number] Abnormal cardiovascular stress test 12/29/2020 Overview (12/29/2020): Added automatically from request for surgery [id number] 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n ative artery of [place] heart with stable angina pectoris ([facility]) 05/23/2017 History of coronary artery stent [...] 01/18/2013 Assessment & Plan (06/29/2022 10:12 AM HAND ALTERATIONS TAILOR): A1c well controlled on admission. He uses [...] session Assessment & Plan (06/28/2022 3:28 PM HAND ALTERATIONS TAILOR): A1c well controlled on admission. He uses [...] week 08/01/2024 How often do you attend denominational or taoism serv ices? Never 08/01/2024 Do you belong [...] a care home (including now)? No 10/16/2023 Housing Stability [...] any time in the past 12 m [facility], were you homeless or living in a care home (including now)? No 08/01/2024 Personal Safety Answer Date Recorded Have you ever been in or are you currently in a harmful physical or emotional relationship or is someone making you feel afraid or unsafe? 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 Male 3:42 AM HAND ALTERATIONS TAILOR Gender Identity Not on file Sexual Orientation Not on file Last Filed Vital Signs Vital Sign Reading Time Taken Comments Blood Pressure 122/75 07/29/2024 1:00 PM HAND ALTERATIONS TAILOR Pulse 116 07/29/2024 1:00 PM HAND ALTERATIONS TAILOR Temperature 36.8 C (98.2 F) 07/29/2024 1:00 PM HAND ALTERATIONS TAILOR Respiratory Rate 16 12/01/2023 11:1 3 AM CDT Oxygen Saturation 96% 12/01/2023 11: 13 AM CDT Inhaled Oxygen Concentration - - Weight 121.2 kg (267 lb 1.6 oz) 07/29/2024 1:00 PM HAND ALTERATIONS TAILOR Height 177.8 cm (5' 10 ) 07/29/2024 1:00 PM HAND ALTERATIONS TAILOR Body Mass Index 38.32 07/29/2024 1:00 PM HAND ALTERATIONS TAILOR Results * Cardiology Document Scan (09/08/2024 11:26 AM HAND ALTERATIONS TAILOR) Anatomical Region Laterality Modality Other us Juan Abo-[place] MD [facility] C[facility] SERVICES PROCEDU RES Final Result * Cardiology Document Scan (09/07/2024 11:24 AM HAND ALTERATIONS TAILOR) Anatomical Region Laterality Modality Other Juan Christianson MD CV CARDIAC SERVICES PROCEDU RES Final Result * Cardiology Document Scan (09/05/2024 11:06 AM HAND ALTERATIONS TAILOR) Anatomical Region Laterality Modality Other Lalit Machuca MD CV CARDIAC SERVICES PROCEDURES F inal Result * HLA Solid Organ Typing Report (08/02/2024 9:04 AM HAND ALTERATIONS TAILOR) Jossie King MD LAB GENETIC TESTIN G Final Result * Six Minute Walk - (07/29/2024 2:46 PM HAND ALTERATIONS TAILOR) Anatomical Region Laterality Modality PFT Narrative 07/29/2024 3:52 PM HAND ALTERATIONS TAILOR Table formatting from the original result was not included. Davey Pickard V., TEARER PRESS CLIPPING on 07/29/2024 2:45 PM Table formatting from the original note was not included. 6 MINUTE WALK RESULTS Name: Pilo Juvenalfabi Rodriguez Jr : 1970 DOS: 07/29/2024 Diagnosis: ESRD/KTE TEARER PRESS CLIPPING performed walk: Carmenza Pickard Rest: 1 min [...] Abdomen Pelvis WO Contrast (07/29/2024 12:43 PM HAND ALTERATIONS TAILOR) Anatomical Region Laterality Modality Body N/A Computed Tomogra phy 07/29/2024 1:04 PM HAND ALTERATIONS TAILOR Impressions 07/29/2024 1:04 PM HAND ALTERATIONS TAILOR 1. Moderate discontinuous atherosclerotic calcifications involve the [...] Teresa Rivera M.D. Narrative 07/29/2024 1:04 PM HAND ALTERATIONS TAILOR EXAMINATION: Computed tomography of the abdomen and [...] Maria Teresa Rivera M.D. 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 Electronically signed by: Julio Pinedo M.D. Narrative 07/29/2024 12:59 PM HAND ALTERATIONS TAILOR EXAMINATION: XR ORTHOPANTOGRAM/PANOREX HISTORY: Kidney Transplant Evaluation [...] by: Julio Pinedo M.D. Jossie King MD [facility] XR PROCEDURES Final Result * Type and screen (07/29/2024 11:23 AM HAND ALTERATIONS TAILOR) Maribel, indirect Negative ABO Rh A Positive ALESSANDRA CARRION Blood 07/29/2024 11:2 3 AM HAND ALTERATIONS TAILOR 07/29/2024 11:43 AM HAND ALTERATIONS TAILOR Narrative ALESSANDRA CARRION - 07/29/2024 12:45 PM HAND ALTERATIONS TAILOR Please draw the ABO and the Type and Screen as two separate blood draws with each stamped with the two different times stamps as this is a regulatory requirement for this patient to be listed for Kidney Transplant. This lab is being obtained as part of a Kidney transplant evaluation, is time sensitive, and should only be drawn during the evaluation visit at [facility] Lab. Has the patient had Daratumumab or Isatuximab in the past 6 months?->Unknown Jossie King MD LAB BLOOD BANK ERNESTO T ORDERABLES Final Result Performing Organization Address City/[facility]/ZIP Co de Phone Number ALESSANDRA [facility] Department [place] [address] * ECG 12 lead (07/29/2024 11:14 AM HAND ALTERATIONS TAILOR) Ventricular Rate EKG/Min [address] [facility] Atrial Rate 117 BPM [facility] HI-Interval (MSEC) [address] [facility] QRS-Interval (MSEC) 126 ms [facility] QT-Interval (MSEC) 366 ms [facility] QTc 510 ms [facility] R [place] -40 degrees [facility] T [place] 147 degrees [facility] Diagnosis Poor data quality, interpretation [...] SAL M.D ([id number]) on 07/29/2024 3:38:41 PM [facility] 07/29/2024 11:1 4 AM HAND ALTERATIONS TAILOR 07/29/2024 3:38 PM HAND ALTERATIONS TAILOR Jossie King MD ECG ORDERABLES Fi nal Result Performing Organization Address City/[facility]/ZIP Co de Phone Number [facility] * ABO/Rh (07/29/2024 11:13 AM HAND ALTERATIONS TAILOR) ABO Rh A Positive Blood 07/29/2024 11:1 3 AM HAND ALTERATIONS TAILOR 07/29/2024 2:45 PM HAND ALTERATIONS TAILOR us Jossie King MD LAB BLOOD BANK ERNESTO T ORDERABLES Final Result ALESSANDRA CARRION [facility] Department [place] [address] * LR HLA Typing (Class I and Class II) (07/29/2024 11:01 AM HAND ALTERATIONS TAILOR) r-SSO HISTOTRAC A [place] A*03 HISTOTRAC [...] 07/30/24 HISTOTRAC Blood 07/29/2024 11:0 1 AM HAND ALTERATIONS TAILOR 08/02/2024 9:03 AM HAND ALTERATIONS TAILOR Narrative HISTOTRAC - 08/02/2024 9:03 AM HAND ALTERATIONS TAILOR DNA was extracted from whole blood or buccal cell specimens, and relevant genomic regions were amplified by polymerase chain reactions (PCR). HLA typing was performed on PCR amplicons using reverse sequence-specific oligonucleotide (r-SSO) and/or sequence-specific primers (SSP) based techniques. r-SSO and SSP are FDA approved as IVD tests and validated by the [facility] Laboratory. Testing performed at the [facility] HLA Laboratory, [facility], [place], [address]. [facility] # [id number]. Dorothy Meade, Ph.D., Concrete Batching Plant Operator, HLA Laboratory Rell Samuels M.D., Ph.D., Billing Control Clerk, HLA Laboratory Licha Nieto, Ph.D., [place] Billing Control Clerk, [facility] Clinical Laboratories Current methodology comment last revised on 04/25/17. Jossie King MD LAB BLOOD ORDERABL ES Final Result Performing Organization Address [facility] de Phone Number HISTOTRAC * Collection Task for HLA Typing 1 (07/29/2024 11:01 AM HAND ALTERATIONS TAILOR) HLA Class I DNA (ABC) Recipient Received Blood 07/29/2024 11:0 1 AM HAND ALTERATIONS TAILOR 07/29/2024 11:56 AM HAND ALTERATIONS TAILOR Jossie King MD LAB BLOOD ORDERABL ES Final Result Performing Organization Address [facility] Co de Phone Number ALESSANDRA [facility] Department [place] [address] * Collection Task for HLA Antibody Screen (07/29/2024 11:01 AM HAND ALTERATIONS TAILOR) HLA Antibody Screen By Single Antigen Received Blood 07/29/2024 11:0 1 AM HAND ALTERATIONS TAILOR 07/29/2024 11:56 AM HAND ALTERATIONS TAILOR Jossie King MD LAB BLOOD ORDERABL ES Final Result Performing Organization Address [facility] Co de Phone Number ALESSANDRA [facility] Department [place] [address] * Collection Task for HLA Typing 2, Patient (07/29/2024 11:01 AM HAND ALTERATIONS TAILOR) HLA Class II DNA (DR, DQ, DP) Recipient Received Blood 07/29/2024 11:0 1 AM HAND ALTERATIONS TAILOR 07/29/2024 11:56 AM HAND ALTERATIONS TAILOR us Jossie King MD LAB BLOOD ORDERABL ES Final Result Performing Organization Address [facility] Co de Phone Number ALESSANDRA CARRION [facility] [place] [address] * (ABNORMAL) eGFR (07/29/2024 11:01 AM HAND ALTERATIONS TAILOR) eGFR 7(L) >=60 mL/min/1. 73 m2 Comment: [...] reviewed 2021. Blood 07/29/2024 11:0 1 AM HAND ALTERATIONS TAILOR 07/29/2024 11:33 AM HAND ALTERATIONS TAILOR us Jossie King MD LAB BLOOD ORDERABL ES Final Result ALESSANDRA CARRION [facility] Department [place] [address] * Differential, auto (07/29/2024 11:01 AM HAND ALTERATIONS TAILOR) Neutrophil abs 3.1 1.5 - 6.5 K/cumm Imm gran abs 0.0 0.0 - 0.1 K/cumm [facility] Lymphocyte abs 1.1 0.8 - 3.3 K/cumm [facility] Monocyte abs 0.7 0.2 - 0.8 K/cumm [facility] Eosinophil abs 0.2 0.0 - 0.5 K/cumm [facility] Basophil abs 0.0 0.0 - 0.1 K/cumm [facility] Neutrophil pct 60.3 % [facility] Comment: Interpretive Data Percent cell count reference ranges are not reported, since discordance with absolute values may lead to misinterpretation of CBC data. Current Interpretive Data was last revised on 2017. Imm gran pct 0.6 % [facility] Comment: Interpretive Data Percent cell count reference ranges are not reported, since discordance with absolute values may lead to misinterpretation of CBC data. Current Interpretive Data was last revised on 2017. Lymphocyte pct 21.4 % [facility] Comment: Interpretive Data Percent cell count reference ranges are not reported, since discordance with absolute values may lead to misinterpretation of CBC data. Current Interpretive Data was last revised on 2017. Monocyte pct 13.7 % [facility] Comment: Interpretive Data Percent cell count reference ranges are not reported, since discordance with absolute values may lead to misinterpretation of CBC data. Current Interpretive Data was last revised on 2017. Eosinophil pct 3.2 % [facility] Comment: Interpretive Data Percent cell count reference ranges are not reported, since discordance with absolute values may lead to misinterpretation of CBC data. Current Interpretive Data was last revised on 2017. Basophil pct 0.8 % [facility] Comment: Interpretive Data Percent cell count reference ranges are not reported, since discordance with absolute values may lead to misinterpretation of CBC data. Current Interpretive Data was last revised on 2017. Blood 07/29/2024 11:0 1 AM HAND ALTERATIONS TAILOR 07/29/2024 11:34 AM HAND ALTERATIONS TAILOR Result [facility] Jossie King MD LAB BLOOD ORDERABL ES Final Result Performing Organization Address [facility] Co de Phone Number [facility] Department [place] [address] * PSA screen (07/29/2024 11:01 AM HAND ALTERATIONS TAILOR) Pathologist [facility] PSA-Total 0.55 <=3.90 ng/mL Comment: Interpretive Data [...] revised 21. Blood 07/29/2024 11:0 1 AM HAND ALTERATIONS TAILOR 07/29/2024 11:33 AM HAND ALTERATIONS TAILOR Narrative [facility] - 07/29/2024 12:39 PM HAND ALTERATIONS TAILOR This lab is being obtained as part of a Kidney transplant evaluation, is time sensitive, and should only be drawn during the evaluation visit at [facility] Lab. Jossie King MD LAB BLOOD ORDERABL ES Final Result Performing Organization Address [facility] Co de Phone Number [facility] Department [place] [address] * (ABNORMAL) Iron profile w/ IBC (07/29/2024 11:01 AM HAND ALTERATIONS TAILOR) Pathologist [facility] Iron 62 50 - 150 mcg/dL TIBC 208(L) 250 - 400 mcg/dL [facility] Transferrin saturation 30 20 - 50 % [facility] Blood 07/29/2024 11:0 1 AM HAND ALTERATIONS TAILOR 07/29/2024 11:33 AM HAND ALTERATIONS TAILOR Narrative ALESSANDRA [facility] - 07/29/2024 12:10 PM HAND ALTERATIONS TAILOR This lab is being obtained as part of a Kidney transplant evaluation, is time sensitive, and should only be drawn during the evaluation visit at [address] Jossie King MD LAB BLOOD ORDERABL ES Final Result Performing Organization Address [facility] de Phone Number [facility] [place] [address] * HIV 1/2 Antibody plus p24 Antigen Blood (07/29/2024 11:01 AM HAND ALTERATIONS TAILOR) Pathologist [facility] HIV 1/2 ab + p24 ag Nonreactive Nonreactive Comment:Nonreactive for HIV- 1 antigen and HIV-1/HIV-2 antibodies. No laboratory evidence of HIV infection. If acute HIV infection is suspected, consider testing for HIV-1 RNA. Current interpretive data was last revised on 22. Blood 07/29/2024 11:0 1 AM HAND ALTERATIONS TAILOR 07/29/2024 11:32 AM HAND ALTERATIONS TAILOR Narrative [facility] - 07/29/2024 12:13 PM HAND ALTERATIONS TAILOR This lab is being obtained as part of a Kidney transplant evaluation, is time sensitive, and should only be drawn during the evaluation visit at [address] Jossie Knig MD LAB MICROBIOLOGY - GENERAL ORDERABLES Final Result Performing Organization Address [facility] de Phone Number [facility] Department [place] [address] * (ABNORMAL) CMV, IgG Blood (07/29/2024 11:01 AM HAND ALTERATIONS TAILOR) Pathologist [facility] CMV IgG Positive( A) [...] CMV infection. Blood 07/29/2024 11:0 1 AM HAND ALTERATIONS TAILOR 07/29/2024 11:33 AM HAND ALTERATIONS TAILOR Narrative ALESSANDRA [facility] - 07/29/2024 1:44 PM HAND ALTERATIONS TAILOR This lab is being obtained as part of a Kidney transplant evaluation, is time sensitive, and should only be drawn during the evaluation visit at [facility]. Jossie King MD LAB MICROBIOLOGY - GENERAL ORDERABLES Final Result [facility] Department [place] [address] * HLA Antibody Screen - SAB (Class I and Class II) (07/29/2024 11:01 AM HAND ALTERATIONS TAILOR) Class I Treatment EDTA HISTOTRAC Class I [...] DR52 HISTOTRAC Blood 07/29/2024 11:0 1 AM HAND ALTERATIONS TAILOR 08/02/2024 9:46 AM HAND ALTERATIONS TAILOR Narrative HISTOTRAC - 08/02/2024 9:46 AM HAND ALTERATIONS TAILOR Single-antigen HLA antibody screen is performed on serum samples using a method developed and validated by the [facility] laboratory based on an FDA-approved IVD kit (LABScreen Single-Antigen, [employer], [place], [place]). All patient serum samples are pretreated with EDTA before the screen to prevent complement interference. Additional serum treatments, such as adsorption and DTT treatment, may be performed as indicated. Interpretive comments: Low risk: MFI [id number]. Moderate risk: MFI [id number]. Increased risk: MFI >/= 5000. The presence [...] antigens to avoid. Testing performed at the [facility] Laboratory, [address] [place] [address], 5th floor, [place], [address]. IA # [id number]. Dorothy Meade, Ph.D., Concrete Batching Plant Operator, HLA Laboratory Rell Samuels M.D., Ph.D., Billing Control Clerk, HLA Laboratory Licha Nieto, Ph.D., CLIA Billing Control Clerk, [facility] Clinical Laboratories Current methodology and interpretive comments last revised on 09/15/2022. us Jossie King MD LAB BLOOD ORDERABL ES Final Result HISTOTRAC * (ABNORMAL) CBC with auto differential (07/29/2024 11:01 AM HAND ALTERATIONS TAILOR) WBC 5.1 3.8 - 9.9 K/cumm Hgb 11.5(L) 13.0 - 17.5 g/dL [facility] Hct 34.4(L) 38.9 - 50.3 % [facility] Plt 208 150 - 400 K/cumm [facility] MPV 10.8 9.1 - 12.3 fL [facility] RBC 3.76(L) 4.30 - 5.80 M/cumm [facility] MCV 91.5 81.3 - 96.4 fL [facility] MCH 30.6 27.1 - 33.3 pg [facility] MCHC 33.4 32.3 - 35.7 g/dL [facility] RDW CV 14.3 11.1 - 14.9 % [facility] RDW SD 47.9 35.7 - 48.1 fL [facility] NRBC abs 0.00 0.00 - 0.01 K/cumm [facility] Blood 07/29/2024 11:0 1 AM HAND ALTERATIONS TAILOR 07/29/2024 11:34 AM HAND ALTERATIONS TAILOR Narrative [facility] - 07/29/2024 11:45 AM HAND ALTERATIONS TAILOR This lab is being obtained as part of a Kidney transplant evaluation, is time sensitive, and should only be drawn during the evaluation visit at [address] Jossie King MD LAB BLOOD ORDERABL ES Final Result Performing Organization Address City/[facility]/ZIP Co de Phone Number [facility] Department [place] [address] * Hepatitis C antibody Blood (07/29/2024 11:01 AM HAND ALTERATIONS TAILOR) Hep C Ab Nonreactive Nonreactive Comment:Antibodies to HCV no t detected. Does NOT exclude the possibility of recent exposure to HCV. Current interpretive data was last revised on 22 Blood 07/29/2024 11:0 1 AM HAND ALTERATIONS TAILOR 07/29/2024 11:32 AM HAND ALTERATIONS TAILOR Narrative [facility] - 07/29/2024 12:47 PM HAND ALTERATIONS TAILOR This lab is being obtained as part of a Kidney transplant evaluation, is time sensitive, and should only be drawn during the evaluation visit at [address] Lab. Jossie King MD LAB MICROBIOLOGY - GENERAL ORDERABLES Final Result [facility] Department [place] [address] * (ABNORMAL) Madiha-Morris virus (EBV) antibody panel Blood (07/29/2024 11:01 AM HAND ALTERATIONS TAILOR) Pathologist [facility] EBV nuclear Ab Positive(A) Negative Comment:Indicates the presen ce of detectable IgG antibody to EBV Nuclear Antigen. EBV VCA IgG Positive(A) Negative [facility] Comment:Indicates the presen ce of antibody; 90% of the adult population will have been infected with EBV sometime in the past. EBV VCA IgM Negative Negative [facility] Comment:No detectable IgM an tibody to EBV-VCA. A negative result indicates no current infection with EBV. If clinical suspicion of acute EBV infection is present, testing should be repeated after one week. EBV interp Past Infection [facility] Blood 07/29/2024 11:0 1 AM HAND ALTERATIONS TAILOR 07/29/2024 11:33 AM HAND ALTERATIONS TAILOR Narrative [facility] - 07/29/2024 1:43 PM HAND ALTERATIONS TAILOR This lab is being obtained as part of a Kidney transplant evaluation, is time sensitive, and should only be drawn during the evaluation visit at [address]. Jossie King MD LAB MICROBIOLOGY - GENERAL ORDERABLES Final Result Performing Organization Address City/State/[facility] Co de Phone Number [facility] Department [place] [address] * Hepatitis B core antibody, total Blood (07/29/2024 11:01 AM HAND ALTERATIONS TAILOR) [facility] Hep B core IgG/IgM Nonreactive Nonreactive Blood 07/29/2024 11:0 1 AM HAND ALTERATIONS TAILOR 07/29/2024 11:32 AM HAND ALTERATIONS TAILOR Narrative [facility] - 07/29/2024 12:47 PM HAND ALTERATIONS TAILOR This lab is being obtained as part of a Kidney transplant evaluation, is time sensitive, and should only be drawn during the evaluation visit at [address] Lab. Jossie King MD LAB MICROBIOLOGY - GENERAL ORDERABLES Final Result Performing Organization Address [facility] Co de Phone Number [facility] Department [place] [address] * Protein, urine, random (07/29/2024 11:01 AM HAND ALTERATIONS TAILOR) Protein, ur, quant 121.2 mg/dL Comment: Interpretive Data No reference range established. Current interpretive data was last revised 2019. Urine 07/29/2024 11:0 1 AM HAND ALTERATIONS TAILOR 07/29/2024 11:32 AM HAND ALTERATIONS TAILOR Narrative [facility] - 07/29/2024 12:18 PM HAND ALTERATIONS TAILOR This lab is being obtained as part of a Kidney transplant evaluation, is time sensitive, and should only be drawn during the evaluation visit at [address] Lab. Jossie King MD LAB URINE ORDERABL ES Final Result Performing Organization Address [facility] de Phone Number [facility] [place] [address] * Creatinine, urine, random (07/29/2024 11:01 AM HAND ALTERATIONS TAILOR) Creatinine Ur 167.1 mg/dL Comment: Interpretive Data No reference range established. Current interpretive data was last revised 2019. Urine 07/29/2024 11:0 1 AM HAND ALTERATIONS TAILOR 07/29/2024 11:32 AM HAND ALTERATIONS TAILOR Narrative [facility] - 07/29/2024 12:18 PM HAND ALTERATIONS TAILOR This lab is being obtained as part of a Kidney transplant evaluation, is time sensitive, and should only be drawn during the evaluation visit at [address]. Jossie King MD LAB URINE ORDERABL ES Final Result Performing Organization Address [facility] Co de Phone Number [facility] [place] [address] * HSV 2 IgG Antibody Blood (07/29/2024 11:01 AM HAND ALTERATIONS TAILOR) Pathologist [facility] HSV 2 IgG Nonreactive Nonreactive Comment: Interpretive Data 1. Nonreactive: No detectable IgG antibody to HSV-2. 2. Equivocal: Presence or absence of detectable antibodies to HSV-2 cannot be determined and the test should be repeated. 3. Reactive: Indicates presence of detectable IgG antibody to HSV-2. Current interpretive data was last revised on 2022. Blood 07/29/2024 11:0 1 AM HAND ALTERATIONS TAILOR 07/29/2024 11:33 AM HAND ALTERATIONS TAILOR Narrative [facility] - 07/29/2024 1:44 PM HAND ALTERATIONS TAILOR This lab is being obtained as part of a Kidney transplant evaluation, is time sensitive, and should only be drawn during the evaluation visit at [address]. Jossie King MD LAB MICROBIOLOGY - GENERAL ORDERABLES Final Result Performing Organization Address [facility] de Phone Number [facility] Department [place] [address] * (ABNORMAL) HSV 1 IgG Antibody Blood (07/29/2024 11:01 AM HAND ALTERATIONS TAILOR) [facility] HSV 1 IgG Reactive( A) Nonreactive Comment: Interpretive Data 1. Nonreactive: No detectable IgG antibody to HSV-1. 2. Equivocal: Presence or absence of detectable antibodies to HSV-1 cannot be determined and the test should be repeated. 3. Reactive: Indicates presence of detectable IgG antibody to HSV-1. Current interpretive data was last revised on 2016. Blood 07/29/2024 11:0 1 AM HAND ALTERATIONS TAILOR 07/29/2024 11:33 AM HAND ALTERATIONS TAILOR Narrative [facility] - 07/29/2024 1:44 PM HAND ALTERATIONS TAILOR This lab is being obtained as part of a Kidney transplant evaluation, is time sensitive, and should only be drawn during the evaluation visit at [address]. Jossie King MD LAB MICROBIOLOGY - GENERAL ORDERABLES Final Result Performing Organization Address [facility] Co de Phone Number [facility] Department [place] [address] * RPR Blood (07/29/2024 11:01 AM HAND ALTERATIONS TAILOR) Pathologist [facility] RPR Nonreactive Nonreactive Blood 07/29/2024 11:0 1 AM HAND ALTERATIONS TAILOR 07/29/2024 11:33 AM HAND ALTERATIONS TAILOR Narrative [facility] - 07/29/2024 12:34 PM HAND ALTERATIONS TAILOR This lab is being obtained as part of a Kidney transplant evaluation, is time sensitive, and should only be drawn during the evaluation visit at [address] Lab. Jossie King MD LAB MICROBIOLOGY - GENERAL [place] [address] * Hepatitis B surface antibody (immune status) Blood (07/29/2024 11:01 AM HAND ALTERATIONS TAILOR) [facility] HBsAb (immune status) Reactive Comment:This result is consi stent with immunity to Hepatitis B Virus when used in the setting of routine screening. Current interpretive data was last revised on 22 Blood 07/29/2024 11:0 1 AM HAND ALTERATIONS TAILOR 07/29/2024 11:32 AM HAND ALTERATIONS TAILOR Narrative [facility] - 07/29/2024 12:47 PM HAND ALTERATIONS TAILOR This lab is being obtained as part of a Kidney transplant evaluation, is time sensitive, and should only be drawn during the evaluation visit at [address] Lab. Jossie King MD LAB MICROBIOLOGY - GENERAL ORDERABLES Final Result [facility] [place] [address] * Hepatitis B Surface Antigen Blood (07/29/2024 11:01 AM HAND ALTERATIONS TAILOR) Pathologist [facility] HepBsAg Nonreactive Nonreactive Blood 07/29/2024 11:0 1 AM HAND ALTERATIONS TAILOR 07/29/2024 11:32 AM HAND ALTERATIONS TAILOR Narrative [facility] - 07/29/2024 12:47 PM HAND ALTERATIONS TAILOR This lab is being obtained as part of a Kidney transplant evaluation, is time sensitive, and should only be drawn during the evaluation visit at [address]. Jossie King MD LAB MICROBIOLOGY - GENERAL ORDERABLES Final Result Performing Organization Address [facility] de Phone Number [facility] Department [place] [address] * (ABNORMAL) aPTT (07/29/2024 11:01 AM HAND ALTERATIONS TAILOR) aPTT 61(H) 28 - 38 sec Comment: Interpretive Data Heparin therapeutic range: 66.0 - 100.0 seconds. Range based on correlation with therapeutic heparin activity range of 0.3 - 0.7 Units/mL. Current interpretive data was last revised on 2023. Blood 07/29/2024 11:0 1 AM HAND ALTERATIONS TAILOR 07/29/2024 11:32 AM HAND ALTERATIONS TAILOR Narrative [facility] - 07/29/2024 11:42 AM HAND ALTERATIONS TAILOR This lab is being obtained as part of a Kidney transplant evaluation, is time sensitive, and should only be drawn during the evaluation visit at [address]. Jossie King MD LAB BLOOD ORDERABL ES Final Result Performing Organization Address [facility] de Phone Number [facility] Department [place] [address] * (ABNORMAL) Protime-INR (07/29/2024 11:01 AM HAND ALTERATIONS TAILOR) PT 50.6(H) 9.7 - 13.0 sec INR 4.54(H) 0.90 - 1.20 [facility] Comment: Interpretive data Oral anticoagulant therapeutic ranges: Venous thromboembolism prophylaxis or treatment: 2.0-3.0 CARDIOLOGY Standard range: 2.0-3.0 High-intensity range: 2.5-3.5 Refer to indication-specific guidelines for appropriate target ranges for prosthetic heart valve replacement. Current interpretive data was last revised on 2019. Blood 07/29/2024 11:0 1 AM HAND ALTERATIONS TAILOR 07/29/2024 11:32 AM HAND ALTERATIONS TAILOR Narrative [facility] - 07/29/2024 11:42 AM HAND ALTERATIONS TAILOR This lab is being obtained as part of a Kidney transplant evaluation, is time sensitive, and should only be drawn during the evaluation visit at [address]. Jossie King MD LAB BLOOD ORDERABL ES Final Result Performing Organization Address [facility] de Phone Number [facility] [place] [address] * Varicella Zoster IgG antibody Blood (07/29/2024 11:01 AM HAND ALTERATIONS TAILOR) Pathologist [facility] VZV IgG Reactive Reactive Comment:Reactive: Results diego ggest response to immunization or prior exposure to the virus. Blood 07/29/2024 11:0 1 AM HAND ALTERATIONS TAILOR 07/29/2024 11:33 AM HAND ALTERATIONS TAILOR Narrative [facility] 07/29/2024 1:45 PM HAND ALTERATIONS TAILOR This lab is being obtained as part of a Kidney transplant evaluation, is time sensitive, and should only be drawn during the evaluation visit at [address]. Jossie King MD LAB MICROBIOLOGY - GENERAL ORDERABLES Final Result Performing Organization Address [facility] de Phone Number [facility] [place] [address] * (ABNORMAL) Uric acid (07/29/2024 11:01 AM HAND ALTERATIONS TAILOR) Pathologist [facility] Uric acid 2.0(L) 3.0 - 8.0 mg/dL Blood 07/29/2024 11:0 1 AM HAND ALTERATIONS TAILOR 07/29/2024 11:33 AM HAND ALTERATIONS TAILOR Narrative [facility] - 07/29/2024 12:10 PM HAND ALTERATIONS TAILOR This lab is being obtained as part of a Kidney transplant evaluation, is time sensitive, and should only be drawn during the evaluation visit at [address]. Jossie King MD LAB BLOOD ORDERABL ES Final Result Performing Organization Address City/State/[facility] Co de Phone Number [facility] [place] [address] * (ABNORMAL) Phosphorus (07/29/2024 11:01 AM HAND ALTERATIONS TAILOR) Phosphorus, pl 5.1(H) 2.3 - 4.5 mg/dL Blood 07/29/2024 11:0 1 AM HAND ALTERATIONS TAILOR 07/29/2024 11:33 AM HAND ALTERATIONS TAILOR Narrative [facility] 07/29/2024 12:10 PM HAND ALTERATIONS TAILOR This lab is being obtained as part of a Kidney transplant evaluation, is time sensitive, and should only be drawn during the evaluation visit at [address]. Jossie King MD LAB BLOOD ORDERABL ES Final Result Performing Organization Address [facility] Co de Phone Number [facility] [place] [address] * (ABNORMAL) PTH (07/29/2024 11:01 AM HAND ALTERATIONS TAILOR) PTH 444(H) 15 - 65 pg/mL Blood 07/29/2024 11:0 1 AM HAND ALTERATIONS TAILOR 07/29/2024 11:34 AM HAND ALTERATIONS TAILOR Narrative [facility] 07/29/2024 12:02 PM HAND ALTERATIONS TAILOR This lab is being obtained as part of a Kidney transplant evaluation, is time sensitive, and should only be drawn during the evaluation visit at [address]. Jossie King MD LAB BLOOD ORDERABL ES Final Result Performing Organization Address City/[facility] Co de Phone Number [facility] [place] [address] * (ABNORMAL) Hemoglobin A1c (07/29/2024 11:01 AM HAND ALTERATIONS TAILOR) [facility] Hgb A1C 9.0(H) 4.0 - 5.6 % Estimated Average Glucose 212 mg/dL [facility] Comment: The ADA recommends reporting an estimated Average Glucose (eAG) with all Hemoglobin A1c results using the equation derived from a study of 507 normal and diabetic adults. Minority populations were underrepresented and children were not included. (Diabetes Care 2020; 43(S1): S66-S76). The eAG is not equivalent to a fasting glucose. Blood 07/29/2024 11:0 1 AM HAND ALTERATIONS TAILOR 07/29/2024 11:34 AM HAND ALTERATIONS TAILOR Narrative [facility] - 07/29/2024 11:53 AM HAND ALTERATIONS TAILOR This lab is being obtained as part of a Kidney transplant evaluation, is time sensitive, and should only be drawn during the evaluation visit at [address] Lab. Jossie King MD LAB BLOOD ORDERABL ES Final Result Performing Organization Address City/[facility] Co de Phone Number [facility] Department [place] [address] * Gamma GT (07/29/2024 11:01 AM HAND ALTERATIONS TAILOR) [facility] GGT 22 10 - 50 Units/L Blood 07/29/2024 11:0 1 AM HAND ALTERATIONS TAILOR 07/29/2024 11:33 AM HAND ALTERATIONS TAILOR Narrative [facility] - 07/29/2024 12:40 PM HAND ALTERATIONS TAILOR This lab is being obtained as part of a Kidney transplant evaluation, is time sensitive, and should only be drawn during the evaluation visit at [address] Lab. Jossie King MD LAB BLOOD ORDERABL ES Final Result [facility] Department [place] [address] * (ABNORMAL) Ferritin (07/29/2024 11:01 AM HAND ALTERATIONS TAILOR) [facility] Ferritin 761(H) 30 - 400 ng/mL Blood 07/29/2024 11:0 1 AM HAND ALTERATIONS TAILOR 07/29/2024 11:33 AM HAND ALTERATIONS TAILOR Narrative [facility] - 07/29/2024 12:10 PM HAND ALTERATIONS TAILOR This lab is being obtained as part of a Kidney transplant evaluation, is time sensitive, and should only be drawn during the evaluation visit at [facility]. us Jossie King MD LAB BLOOD ORDERABL ES Final Result [facility] Department [place] [address] * (ABNORMAL) Lipid panel (07/29/2024 11:01 AM HAND ALTERATIONS TAILOR) Cholesterol 114 30 - 199 mg/dL Comment: [...] revised on 2018. Triglycerides 66 <=149 mg/dL [facility] Comment: Interpretive Data Ages < [...] revised on 2018. HDL 29(L) >=40 mg/dL [facility] Comment: Interpretive Data Ages < [...] on 2018. LDL, calculated 71 <=129 mg/dL [facility] Comment: Interpretive Data Ages < [...] revised on 2024. Non-HDL Cholesterol 85 mg/dL [facility] Comment: Interpretive Data Ages < [...] last revised on 2018. Chol/HDL ratio 4 [facility] Blood 07/29/2024 11:0 1 AM HAND ALTERATIONS TAILOR 07/29/2024 11:33 AM HAND ALTERATIONS TAILOR Narrative [facility] - 07/29/2024 12:10 PM HAND ALTERATIONS TAILOR This lab is being obtained as part of a Kidney transplant evaluation, is time sensitive, and should only be drawn during the evaluation visit at [facility]. Jossie King MD LAB BLOOD ORDERABL ES Final Result [facility] Department [place] [address] * (ABNORMAL) Comprehensive metabolic panel (07/29/2024 11:01 AM HAND ALTERATIONS TAILOR) Sodium 136 135 - 145 mmol/L Potassium, pl 4.6 3.3 - 4.9 mmol/L [facility] Chloride 93(L) 97 - 110 mmol/L [facility] CO2 26 22 - 32 mmol/L [facility] Anion gap 17(H) 2 - 15 mmol/L [facility] BUN 65(H) 6 - 25 mg/dL [facility] Creatinine 8.07(H) 0.80 - 1.30 mg/dL [facility] Glucose 280(H) 70 - 199 mg/dL [facility] Comment: Interpretive Data Fasting glucose [...] 2022. Calcium 9.4 8.5 - 10.3 mg/dL [facility] Bilirubin, total 0.3 0.1 - 1.2 mg/dL [facility] Protein, pl 7.2 6.5 - 8.5 g/dL [facility] Albumin 3.8 3.5 - 5.0 g/dL [facility] Alk phos 99 40 - 130 Units/L [facility] ALT 30 7 - 55 Units/L [facility] AST 31 10 - 50 Units/L [facility] Blood 07/29/2024 11:0 1 AM HAND ALTERATIONS TAILOR 07/29/2024 11:33 AM HAND ALTERATIONS TAILOR Narrative [facility] - 07/29/2024 12:10 PM HAND ALTERATIONS TAILOR This lab is being obtained as part of a Kidney transplant evaluation, is time sensitive, and should only be drawn during the evaluation visit at [facility]. us Jossie King MD LAB BLOOD ORDERABL ES Final Result [facility] Department [place] [address] * (ABNORMAL) Oxalate (oxalic acid) (07/29/2024 10:53 AM HAND ALTERATIONS TAILOR) Oxalate 12.3(H) <=2.0 mcmol/L [facility] Comment: High value suggestive of Primary Hyperoxaluria. However, if the patient has chronic kidney disease (GFR<30 mL/min/1.73m2), plasma oxalate values up to 30 mcmol/L can be normal. The [facility] Hyperoxaluria Center is available to review case details and answer any questions regarding interpretation ([email or web address]; [phone]) ADDITIONAL INFORMATION This test has been modified from the customer advocacy manager's instructions. Its performance characteristics were determined by [facility] in a manner consistent with CLIA requirements. This test has not been cleared or approved by the U.S. Food and Drug Administration. Test Performed by: [facility] - [address] [address] Hadoop Application Developer: Jairo Higgins Ph.D.; CLIA# [id number] Blood 07/29/2024 10:5 3 AM HAND ALTERATIONS TAILOR 07/29/2024 11:37 AM HAND ALTERATIONS TAILOR Jossie King MD LAB BLOOD ORDERABL ES Final Result Performing Organization Address City/[facility]/ZIP Co de Phone Number [facility] [place] [address] [place] ref Lab * (ABNORMAL) Urinalysis reflex to microscopic (07/29/2024 10:53 AM HAND ALTERATIONS TAILOR) Color, ur Yellow Yellow Clarity, ur Cloudy(A) Clear [facility] Specific gravity, ur 1.022 1.003 - 1.030 [facility] pH, urine 6.0 [facility] Comment: Interpretive Data U rine pH is affected by diet, medications, systemic acid-base disturbances, and renal tubular function. pH may affect urinary stone formation. For example, urine pH below 6.0 may help reduce the tendency for calcium phosphate stones and pH greater than 6.0 may reduce the tendency for uric acid stone formation. Source: [facility] Current Interpretive Data was last revised on 2017 Protein, ur ql 2+(A) Negative [facility] Glucose, ur ql 4+(A) Negative [facility] Ketones, ur Negative Negative [facility] Bilirubin, ur Negative Negative [facility] Blood, ur 3+(A) Negative [facility] Urobilinogen, ur <2.0 <2.0 mg/dL [facility] Nitrite, ur Negative Negative [facility] Leukocyte esterase, ur 2+(A) Negative [facility] UA reflex comment Reflex to microscopic UA will be performed. [facility] Urine 07/29/2024 10:5 3 AM HAND ALTERATIONS TAILOR 07/29/2024 11:27 AM HAND ALTERATIONS TAILOR Narrative [facility] - 07/29/2024 11:29 AM HAND ALTERATIONS TAILOR This lab is being obtained as part of a Kidney transplant evaluation, is time sensitive, and should only be drawn during the evaluation visit at [facility] Lab. Jossie King MD LAB URINE ORDERABL ES Final Result Performing Organization Address City/[facility]/ZIP Co de Phone Number [facility]ie [facility] Department [place] [address] * (ABNORMAL) Urinalysis, microscopic only (07/29/2024 10:53 AM HAND ALTERATIONS TAILOR) WBC, ur 21-50(A) 0 - 5 /HPF RBC, ur >50(A) 0 - 2 /HPF [facility] Epithelial cells, squamous, ur 1-5 0 - 5 /HPF [facility] Bacteria, ur Trace(A) [facility] Mucous, ur Present(A) [facility] Hyaline casts, ur 1-5 0 - 10 /LPF [facility] Urine 07/29/2024 10:5 3 AM HAND ALTERATIONS TAILOR 07/29/2024 11:27 AM HAND ALTERATIONS TAILOR us Jossie King MD LAB URINE ORDERABL ES Final Result [facility] One [facility] Department [place] [address] * (ABNORMAL) TSH (10/27/2023 2:30 AM HAND ALTERATIONS TAILOR) Thyroid Stimulating Hormone 13.20(H) 0.30 - 4.20 mcIUnit/mL Blood 10/27/2023 2:30 AM HAND ALTERATIONS TAILOR 10/27/2023 2:42 AM HAND ALTERATIONS TAILOR us Lorne Mcnulty MD LAB BLOOD ORDERABLES Final Result [facility] [address] Department [place] [address] from Last 3 Months or Most Recently Relevant to Health Maintenance
--- OUTSIDE RECORDS SUMMARY | 2024-10-24 20:59 | XMS_ITS | Encounter Summary ---
Author Organization [facility] Address [address] [address] Phone Care Team Providers Care Duck Farmer Name Role Phone Unavailable Primary Care Provider Unavailabl e Reason for Visit * Reason Comments Med Refill Encounter Details Date Type Department Care Team (Late st Contact Info) Description 07/04/2019 Refill [facility] [address] [address] Leandro Reyes MD [address] [address] Social History Tobacco Use [...]
--- OUTSIDE RECORDS SUMMARY | 2024-10-24 21:00 | XMS_ITS | CONTINUITY OF CARE DOCUMENT ---
Author Name archana magaña Address Unknown Organization [facility] Address [address] [place] [address] Phone [phone] Care Team Providers Care Audit Clerk Name Role Phone Shannon ARNOLD, Hamlet Unavailable [phone] TSEPHANIE CORREA MD Unavailable STEPHANIE CORREA MD Unavailable [phone] PROBLEMS Condition Status Date Provider Notes CABG post active Annemarie Connelly RN Valve replacement active Annemarie Connelly RN superintendent terminal anticoagulant therapy active Annemarie Connelly RN Atrial Fibrillation active Hamlet Ortega MD 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 GFR <15 active Hamlet Ortega MD Valve Surgery active Hamlet Ortega MD (Stat us post) C A B G: active Hamlet Ortega MD (Status post) Aortic insufficiency active Hamlet Light Overweight active Hamlet Ortega MD Dizziness active [...] In-person encounter Office Visit Hamlet Ortega MD [place] [facility] - In-person encounter Office Visit Hamlet Ortega MD [facility] Atrial Fibrillation - In-person encounter Office Visit Hamlet Ortega MD [facility] Office - In-person encounter Office Visit Ham[place] Ortega MD [place] [facility] C A B G:Valve SurgeryCKD stage ESRD on dialysis GFR <15 - In-person encounter Office Visit Hamlet Ortega MD [place] [facility] - In-person encounter Office Visit Hamlet Ortega MD [facility] Office - In-person encounter Office Visit [place] Ortega MD [facility] Office OverweightAortic insufficiency - In-person encounter Office Visit Hamlet Ortega MD [place] [facility] - In-person encounter Office Visit Ham[place] Ortega MD [place] [facility] - In-person encounter Office Visit Ham[place] Ortega MD [place] [facility] - In-person encounter Office Visit [place] Ortega MD [place] [facility] - In-person encounter Office Visit [place] Ortega MD [place] [facility] - In-person encounter Office Visit [place] Ortega MD [place] [facility] - In-person encounter Office Visit [place] Ortega MD [place] [facility] - In-person encounter Office Visit Hamlet Ortega MD [facility] Office - In-person encounter Office Visit Hamlet Ortega MD [place] [facility] - In-person encounter Office Visit Hamlet Ortega MD [place] [facility] - In-person encounter Office Visit Hamlet Ortega MD [place] [facility] - In-person encounter Office Visit Hamlet Ortega MD [place] [facility] - In-person encounter Office Visit Ham[place] Ortega MD [place] Dizziness - In-person encounter Office Visit Hamlet Ortega MD [place] [facility] - In-person encounter Office Visit Hamlet Ortega MD [facility] Office - In-person encounter Office Visit Hamlet Ortega MD [place] - In-person encounter Office Visit Ham[place] Ortega MD [place] [facility] Family History of Hypertension:Coronary artery diseaseShortness [...] Body Mass Index (Ratio) 40.31 kg/m2 Michael Oretga MD blood pressure, diastolic 79 mm[Hg] [facility] blood pressure, systolic 169 mm[Hg] Molly carrillo [facility] oxygen saturation, oximetry 100 % [facility] pulse rate 94 /min [facility] weight E&M 281 [lb_av] [facility] height E&M 70 [in_i] Lexus [facility] blood pressure, diastolic 101 mm[Hg] Chapo montaguen Major blood pressure, systolic 157 mm[Hg] Vanna garay Major oxygen saturation, oximetry 96 % [facility] pulse rate 122 /min [facility] blood pressure, cuff size regular Chapo dena Major Body Mass Index (Ratio) 38.62 kg/m2 Zoë on Major weight in kilograms E&M 122.11 kg Zoë on Major weight E&M 269.2 [lb_av] [facility] height E&M 70 [in_i] Chapoaromegan Major [...] /min Omari weight E&M 267 [lb_av] Omari erda y height E&M 70 [in_i] Omari [...] Glo nkLogic blood pressure, systolic 140 mm[Hg] Alvern kLogic blood pressure, diastolic 69 mm[Hg] Sa [...] MD blood pressure, diastolic 79 mm[Hg] Cy maddei Holly blood pressure, systolic 141 mm[Hg] Aida silviohayden Holly blood pressure, cuff size regular Cy ntsole Holly pulse rate 57 /min Karley Mkbel l respiratory rate E&M 16 /min Karlyekathy Holly oxygen saturation, oximetry 98 % Karley [...] [lb_av] Hai hansen height E&M 70 [in_i] aHi Alex nson ALLERGIES Allergy Name Onset Date [...] LinkLogic 3.5-5.2 sodium, serum 140 mmol/L LinkLogic [phone]/03/ 21 urea nitrogen/creatini ne ratio, serum 17 [...] Not Estab. platelet count 261 X10E3/UL LinkLogic [phone]/03/ 21 red blood cell distribution width 13.9 [...] by mouth once a day Arabella Taylor superintendent terminal anticoagulant therapy warfarin 3 mg tablet completed Take 1 tablet by mouth every evening EXCEPT on Mon Wed and Fri , take 1 and one half tablet. (4.5 mg) - Annemarie Connelly RN superintendent terminal anticoagulant therapy warfarin 2 mg tablet completed 1 tab on 01/19, 01/20, 01/21, 01/22 - Robin Villarreal RN levothyroxine 25 mcg tablet active Take 1 tablet by mouth every morning Annemarie Connelly RN warfarin 3 mg tablet completed Take 1 tablet by mouth every evening EXCEPT on Mon and take one half tablet. (1.5 mg) - Moustapha Koehler RN senior living anticoagulant therapy warfarin 2 mg tablet completed [...] MD passive cigarette sm kat exposure no Karely Holly smoking status Never smoker Karley Terrazaschad [...] MD smoking status Never smoker Kimber Bear [facility] social history E&M Marital Statu s: [...] Payer name Policy type / Coverage type Dillard red green party ID [id number] COMPLETE CARE [id number] (PPO C-SNP) Commercial insurance [employer] [id number] [facility] Medicaid 3 [id number] ADVANCE DIRECTIVES Name Date DISCUSSED - NO DECISION MADE TREATMENT PLAN Date Name Performer [id number],SHamlet MD [id number],SHamlet MD [id number],SHamlet MD [id number],SHamlet MD [id number],SHamlet MD [id number],SHamlet MD [id number],SHamlet MD [id number],S, Ham[place] n [place] [id number],S, Hamlet [place] n [place] [id number],S, Hamlet Ramada n [place] [id number],S, Hamlet Ramada n [place] [id number],S, Hamlet Ramada n [place] [id number],S, Hamlet Ramada n [place] [id number],C,T he patient is using BiPAP on a regular basis. The patient has been benefiting from therapy and should continue use. Hamlet Bloomn [place] [id number],S, Hamlet [place]ada n [place] [id number],S, Hamlet Ramada n [place] [id number],S, Hamlet Ramada n [place] [id number],S, Hamlet Ramada n [place] [id number],S, Hamlet Ramada n [place] [id number],S, Hamlet Ram[place] n [place] [id number],S, Hamlet Ramada n [place] [id number],S, Hamlet Ramada n [place] [id number],S, Hamlet Ramada n [place] [id number],S, Hamlet [place] n [place] [id number],S, Hamlet Ramada n [place] [id number],S, Hamlet Ramada n [place] [id number],S, Hamlet Ramada n [place] [id number],C,T he patient is using CPAP on a regular basis. The patient has been benefiting from therapy and should continue use. Hamlet Ortega MD [id number],B, Hamlet Merle guzman MD [id number],S, Hamlettim Loredodewayne guzman MD [id number],B, Hamlet guzman MD [id number],B, Hamlet guzman MD [id number],S, Hamlet Merle guzman MD [id number],S, Hamlet Merle guzman MD [id number],B, Hamlet guzman MD [id number],S, Hamlet Merle guzman MD [id number],S,L ast stress 01/08 had some abnormalities that fit with known coronary anatomy. No significant symptoms at this point. Will follow closely, no cath at this point. Patient is encouraged to increase activity as tolerated, particularly exercise in form of walking on treadmill. Hamlet Ortega MD [id number],B, Hamlet guzman MD [id number],S, Hamlet guzman MD [id number],S, Hamlet guzman MD [id number],C,T he patient is using CPAP on a regular basis. The patient has been benefiting from therapy and should continue use. Hamlet Ortega MD [id number],S, Hamlet guzman MD [id number],S,L ast stress 01/08 had some abnormalities that [...] Ortega MD completed Phone Anti-Coag Management Robin Vlilarreal RN completed Phone Anti-Coag Management Robin Villarreal RN completed Phone Anti-Coag Management Patrick Almonte MD completed Phone Anti-Coag Management Hamlet Ortega MD completed Complex e/m visit add on Hamlet Ortega MD completed Phone Anti-Coag Management Robin Villarreal RN completed Phone Anti-Coag Management Robin Villareral RN completed Protalexander Ortega MD complete d [...]
--- OUTSIDE RECORDS SUMMARY | 2024-10-24 21:00 | XMS_ITS | Encounter Summary ---
Author Organization [facility] Address [address] [place] [address] Care Team Providers Care Director Of Clinical Trials Name Role Phone Aditya Castro MD Primary Care Provider [phone] Encounter Details Date Type Department Care Team (Late st Contact Info) Description 04/15/2019 Telephone [facility] Oncology and Hematology - [place] [address] [facility] [address] [place] [address] Fernando Schmid MD [address] [place] [address] Social History Tobacco Use Types [...] in this encounter Care Teams Director Of Clinical Trials Relationship Specialty Start Date End Date Aditya Castro MD PCP - General Student in an Organized Health Care Education/Training Program 09/11/18 documented as of this encounter
--- OUTSIDE RECORDS SUMMARY | 2024-10-24 21:00 | XMS_ITS | Encounter Summary ---
Author Organization [facility] Address [address] [facility] [place] [address] Care Team Providers Care Airplane Gastank Liner Assembler Name Role Phone Matthew Aditya Ellison Primary Care Provider Unavailab le Reason for Visit * Reason Onset Date Comments Med Question 06/25/2019 Encounter Details Date Type Department Care Team (Late st Contact Info) Description 06/25/2019 Telephone [facility] [address] [place] [address] Finn Kramer MD [address] [place] [address] Med Question Social History Tobacco Use Types [...] pt he is asking that we call [facility] at [phone] and talk to them about the compression stockings. I called and spoke with Kashif at [facility] and gave clarification the the mmHg I let them know that they should Be the 20-30mmHg . He understood and will get them ready for pt. Anali Connelly CONTROL CONSULTANT * Telephone Encounter - Theodore Huerta - 06/25/2019 10:40 AM CST Pt called saying patient pharmacy just needs clarification of a number on the prescription for compression socks. Please Advise. CONTROL CONSULTANT documented in this encounter Plan of Treatment Not on file documented as of this encounter Visit Diagnoses Not on filedocumented in this encounter Care Teams Airplane Gastank Liner Assembler Relationship Specialty Start Date End Date Aditya Castro Update Information PCP - General 03/06/19 documented as of this encounter
== END 2024-10-24 20:08 | disposition left against medical advice (07) ==
LOC: ANHED 20:56
PROVIDERS: PCP Family Medicine
DX: R06.02 Shortness of breath (principal)
CPT/HCPCS: 99199

== ENCOUNTER 2024-11-19 12:32 | Outpatient (CLI) | payer MEDICARE, MEDICAID, SELFPAY ==
--- OUTSIDE RECORDS SUMMARY | 2024-11-19 13:27 | XMS_ITS | Clinical Summary ---
Author Organization [facility] Address [address] [place] [address] Care Team Providers Care Cushion Assembler Name Role Phone Aditya Castro MD [...] tablet Take 30 mg by mouth daily mixing operator. Active clopidogrel (PLAVIX) 75 mg Tablet Take [...] Take 50,000 Units by mouth. Active Insulin Butler, Disposable, (TRUEPLUS PEN NEEDLE) 31 gauge x [...] (06/29/2022): Added automatically from request for surgery [id number] Right upper quadrant pain 09/24/2020 Pre-transplant evaluation for kidney transplant 03/24/2020 Overview (06/29/2022): Images from the original note were not included. Juvenal Daigle 1970 Referring Puffer Tender: Leandro Reyes Dialysis Info: Type: PD Time: 160 days (11/05/2019) Blood Type: A Body mass index is 37.8 kg/m . ALERTS Hot Die Press Operator: Vashti Lizama NP Past Medical History: Diagnosis Date Anemia Arthritis Arthropathy osteo. back and knees see Dr. Norton CAD (coronary artery disease) Community acquired pneumonia 2017 [facility] hospitalized with double pneumonia Congestive heart failure Coronary artery disease Diabetes mellitus type 1 teens dx when he was 13. Insulin since he was dx. Insulin pump currently with dexacom. Vashti Lizama NP is rouge presser. DM (diabetes mellitus) TYPE 1 DVT (deep venous thrombosis) 2017 [facility]. ESRD on peritoneal dialysis Gout History of blood transfusion 2017 during admission for OR HLD (hyperlipidemia) HTN (hypertension) Hypercholesteremia 5 years on med Hypertension 30's on medications. Kidney disease Myocardial infarction 2017 [facility]. Stent x1 placed. Neuropathy feet Obstructive [...] file Gets together: Not on file Attends voodoo service: Not on file Active member of [...] 07/02/2020: Committee Discussion Details: Pt brought to [facility] to discuss his cardiac workup. [...] is the impression of this manager social services that Juvenal Daigle has several positive factors [...] advised of safety concerns regarding immunosuppressants. Plan: hand bindery assembly worker to provide supportive services as needed. Patient appears to be a reasonable candidate for transplant from a psychosocial perspective. -Post transplant arrangement forms are needed prior to being listed. Psychiatric Consult Recommended: No Transplant Rn X Ray: Radha Roper LCSW RD:05/14/2020 BMI= 40.0, Class [...] cm (5' 10 ) 06/29/2022 6:00 PM NEW HOME SALES CONSULTANT Body Mass Index 37.74 06/29/2022 6:00 PM NEW HOME SALES CONSULTANT Plan of Treatment Health Maintenance Due Date [...] T d or Tdap) 10/21/2029 10/22/2019 Insurance [facility] [id number] [facility] MCR Advance Directives For more information, please contact: [phone] * Full Code (Latest Code Status on File) Date Activated Date Inactivated Comments 06/29/2022 2:49 PM 07/08/2022 4:30 PM Care Teams Cushion Assembler Relationship Specialty Start Date End Date Aditya Castro MD PCP - General Student in an Organized Health Care Education/Training Program 09/11/18
--- OUTSIDE RECORDS SUMMARY | 2024-11-19 13:28 | XMS_ITS | Encounter Summary ---
Author Organization [facility] Address [address] [address] Phone Care Team Providers Care Trial Judge Name Role Phone Unavailable Primary Care Provider Unavailabl e Reason for Visit * Reason Comments Med Refill Encounter Details Date Type Department Care Team (Late st Contact Info) Description 02/13/2019 Refill [facility] [address] [address] Leandro Reyes MD [address] [address] Social History Tobacco Use [...]
--- OUTSIDE RECORDS SUMMARY | 2024-11-19 13:28 | XMS_ITS | Encounter Summary ---
Author Organization [facility] Address [address] [address] Phone Care Team Providers Care Gasoline Plant Operator Name Role Phone Unavailable Primary Care Provider Unavailabl e Reason for Visit * Reason Comments Med Refill Encounter Details Date Type Department Care Team (Late st Contact Info) Description 02/24/2020 Refill [facility] [address] [address] Leandro Reyes MD [address] [address] Social History Tobacco Use [...]
--- OUTSIDE RECORDS SUMMARY | 2024-11-19 13:28 | XMS_ITS ---
Author Organization [facility] Address [address] [place] [address] Care Team Providers Care Principal Architect Name Role Phone Aditya Castro MD Primary Care Provider [phone] Alondra Lambert RN Unavailable [phone] Shannon Brock MD, Hamlet P. Unavailable [phone] Leandro Reyes MD Unavailable [phone] Transplant Episode Kidney Candidate [facility] ([place], [place]) [facility] Evaluation began on 05/10/2024 Marked as Active on 05/10/2024 Reason: Evaluation - Standard Kidney CoordinatorAlondra Lambert RN Fax: N/A Email: N/A Scores Score Value Updated Exceptions/Reas ons CPRA Not available EPTS (Calc) 79 11/19/2024 Care Team Name Role Phone Fax Email Alondra Lambert RN Kidney Coordinator [phone] N/A N/A Melany Kelly Primary Registered Nurse Cardiac N/A N/A N/A Chris Richard Sub Acute Care Nurse N/A N/A N/A Events Pre-Transplant Referred: 03/06/2024 Evaluation began: 05/10/2024 Dialysis History Dialysis History Start End Type Comments Center 10/16/2019 Peritoneal [facility] Information Center Phone Fax Address [facility] [phone] [address] [facility] [address] [facility] [place] [address]
--- OUTSIDE RECORDS SUMMARY | 2024-11-19 13:28 | XMS_ITS | Encounter Summary ---
Author Organization [facility] Address [address] [address] Phone Care Team Providers Care Factory Helper Name Role Phone Unavailable Primary Care Provider Unavailabl e Reason for Visit * Reason Comments Med Refill Encounter Details Date Type Department Care Team (Late st Contact Info) Description 10/08/2019 Refill [facility] [address] [address] Leandro Reyes MD [address] [address] Social History Tobacco Use Types [...]
--- OUTSIDE RECORDS SUMMARY | 2024-11-19 13:28 | XMS_ITS | Data Portability ---
Author Organization [place] [facility] [employer], Main Office Address [address] [place] [address] Care Team Providers Care Journeyman Millwright Name Role Phone ADITYA CASTRO Primary Care Provider ADITYA CASTRO Referring Provider [phone] ADITYA CASTRO Primary Care Provider [phone] Assessment Encounter Date Assessment Date Assessment LastModified [...] or questions. [email or web address] Not available 06/21/2024 12:00:32 07/15/2024 07/15/2024 53 [...] per schedule. Cont f/u with Endo at [place] as per schedule. Cont f/u with Spine as per schedule. Cont f/u with Rheumat at [facility] as per schedule. Cont f/u with Surg as per schedule. Cont f/u with Cardio at [facility] as per schedule. Cont f/u with Nephro at [facility] as per schedule. Cont f/u with Hemat at [place] as per schedule. Cont f/u with Advanced Clinical Specialist as per schedule. Cont f/u with Ophtho at as per schedule. Cont f/u with Derm at [facility] as per schedule. Cont f/u with Dr. Langley (Hand surgeon) at as per schedule. Educated pt about alarming symptoms to monitor at home and call us back or get checked in ED. Pt had acute renal failure and was admitted hospital due to s/e from Allopurinol as per his Adjunct Faculty. So pt can not take any Allopurinol [...] months as before. Annual labs in 05/15. Not available 07/15/2024 12:11:51 08/27/2024 08/27/2024 54 [...] per schedule. Cont f/u with Endo at [place] as per schedule. Cont f/u with Spine as per schedule. Cont f/u with Rheumat at [facility] as per schedule. Cont f/u with Surg as per schedule. Cont f/u with Cardio at [facility] as per schedule. Cont f/u with Nephro at [facility] as per schedule. Cont f/u with Hemat at [place] as per schedule. Cont f/u with Advanced Clinical Specialist as per schedule. Cont f/u with Ophtho at as per schedule. Cont f/u with Derm at [facility] as per schedule. Cont f/u with Dr. Langley (Hand surgeon) at as per schedule. Educated pt about alarming symptoms to monitor at home and call us back or get checked in ED. Pt had acute renal failure and was admitted hospital due to s/e from Allopurinol as per his Adjunct Faculty. So pt can not take any Allopurinol [...] in 3-4 months. Annual labs in 05/15. [email or web address] Not available 08/27/2024 15:22:37 10/31/2024 10/31/2024 Time spent with patient included: preparing to see patient by reviewing tests, obtaining and reviewing history, medical examination and evaluation, counseling and educating the patient, ordering medications and tests, documenting clinical information in EHR, independently interpreting results and communicating results to the patient for a total of 55 minutes. [email or web address] Not available 10/31/2024 11:49:11 11/18/2024 11/18/2024 Advised pt to go to ED; but pt declined. Pt wants to try meds today and see how he feels. Risks explained. Cont f/u with Cardio and Pulmo as directed. [email or web address] Not available 11/18/2024 12:26:24 Plan of Treatment Reminders Order Date Submit Date Provider Last Modified By Organization Details Last Modified Time Details Appointments Follow Up 15 2024 09:45A Lisa Castro MD Not available Not available Not available Lab alpha-1 -antitr ypsin (aat) phenoty pe, serum [address] (Lab), [address] [place], [address], 11/18/2024 11:52:34 ige, total, serum [address] (Lab), [address] [place], [address], 11/18/2024 11:52:34 tb (M tubercu losis), ifn-jono ma hiwot, blood [address] (Lab), [address] [place], [address], 11/18/2024 11:52:34 igg subclas ses 1+2+3+4 , serum [address] (Lab), [address] [place], [address], 11/18/2024 11:52:34 respira tory allerge n panel, [facility] A, serum [address] (Lab), [address] [place], [address], 11/18/2024 11:52:34 respira tory allerge n panel - [facility] b [address] (Lab), [address] [place], [address], 11/18/2024 11:52:34 eosinop hils, quant, blood [address] (Lab), [address] [place], [address], 11/18/2024 11:52:34 pro BNP (pro B-type natriur etic peptide ), serum or plasma 2024 025 [email or web address] [facility] (Lab), [address] [facility], [place], [address], 11/18/2024 11:52:35 Referral pain managem ent referra l - Please call patient to lora e an appoint ment. Thank you. 2024 025 [email or web address] [facility], [address], [address], [place], [address], 09/25/2024 08:49:04 general surgeon referra l - Please call patient to lora e an appoint ment. Thank you. 2023 024 [email or web address] Everton Hooker MD, [address] [facility], [address], [place], [address], 08/12/2024 08:54:30 Procedures injecti on/aspi ration joint/b ursa (PROC) 2023 024 [email or web address] In-Office Order, Internal Use Only DO Not Attach Compendium DO Not Attach Compendium, Do Not Delete/merge, [id number] 06/21/2024 11:43:13 Surgeries None recorde d. Imaging CT, chest, w/o contras t - Please call patient to schedul e.Note from provide r: previou s Ct in 02/2024 lung nodules present -worsen ing of dyspnea and hx of afib-hx CKD stage 5 2024 025 [facility], [address], [place], [address], 11/18/2024 11:52:35 XR, hip + pelvis, unilate ral 2023 024 [email or web address] [facility], [address], [place], [address], 06/21/2024 12:02:32 Medication Orders amoxici llin 875 mg-pota ssium clavula nadira 125 mg tablet 2024 025 [facility]09539, [address] [facility], [place], [place], [id number], 11/18/2024 11:56:30 prednis one 10 mg tablet 2024 025 [facility] #37482, [address] [facility], [place], [place], [id number], 11/18/2024 11:56:32 benzona laura 200 mg capsule 2024 025 [facility] #40991, [address] [facility], [place], [place], [id number], 11/18/2024 11:56:29 ketocon azole 2 % shampoo 2024 025 [facility] #88886, [address] [facility], [place], [place], [id number], 11/18/2024 12:00:22 colchic ine 0.6 mg tablet 2024 025 [facility] #13528, [address] [facility], [place], [place], [id number], 08/27/2024 14:33:42 Uloric 40 mg tablet 2024 025 [facility] #39901, [address] [facility], [place], [place], [id number], 08/27/2024 15:24:16 Vascepa 1 gram capsule 2024 025 [facility] #46264, [address] [facility], [place], [place], [id number], 08/27/2024 15:24:17 tamsulo sin 0.4 mg capsule 2024 025 [facility] #26329, [address] [facility], [place], [place], [id number], 08/27/2024 14:30:45 ondanse ness HCl 4 mg tablet [address] [facility] #79029, [address] [facility], [place], [place], [id number], 10/31/2024 11:07:02 ezetimi be 10 mg tablet 2024 025 [facility] #77639, [address] [facility], [place], [place], [id number], 08/27/2024 15:24:17 gemfibr ozil 600 mg tablet [address] [facility] #49737, [address] [facility], [place], [place], [id number], 10/31/2024 11:05:57 famotid ine 40 mg tablet 2024 025 [facility] #15059, [address] [facility], [place], [place], [id number], 08/27/2024 14:33:43 tamsulo sin 0.4 mg capsule 2023 024 [email or web address] [facility] #33292, [address] [facility], [place], [place], [id number], 07/15/2024 12:10:41 ketorol ac 10 mg tablet 2023 024 [email or web address] [facility] #53549, [address] [facility], [place], [place], [id number], 08/27/2024 15:23:27 oxycodo ne 5 mg tablet 2023 024 [email or web address] [facility] #86751, [address] [facility], [place], [place], [id number], 08/27/2024 15:23:49 ondanse ness HCl 4 mg tablet 2023 024 [facility] #37006, [address] [facility], [place], [place], [id number], 10/31/2024 11:07:02 bupivac will HCl 0.5 % (5 mg/mL) injecti on solutio n 2023 024 [email or web address] [facility] #80384, [address] [facility], [place], [place], [id number], 06/21/2024 11:52:35 Kenalog 10 mg/mL suspens ion for injecti on 2023 024 [id number] 15 [facility] #49941, [address] [facility], [place], [place], [id number], 07/12/2024 21:17:10 Patient TargetsNo targets recorded. Patient Instructions Encounter Date Encounter Id Patient Instructions Last Modified By Organization Details Last Modified Time 07/15/2024 [id number] starting a weigh t loss plan: care instructions [email or web address] Not available 07/15/2024 12:10:41 08/27/2024 [id number] starting a weigh t loss plan: care instructions [email or web address] Not available 08/27/2024 14:30:39 10/31/2024 [id number] complete PFT w/ post bronchodilator spirometry* [email or web address] Not available 11/18/2024 11:52:34 Reason for Referral General Surgeon Referral for Gallstone RUQ pain, gallstones ++ Please call patient to schedule an appointment. Thank you. Referring Physician: Aditya Castro, Family Medicine, Encounter Date: 07/15/2024 Pain Management Referral for Chronic back pain Please call patient to schedule an appointment. Thank you. Referring Physician: Aditya Castro, Family Medicine, Encounter Date: 08/27/2024 Results Created Date Observation Date Name Description Value Unit Range Abnormal Flag Note LastModifiedBy Organization Detail LastModifiedTime 06/21/20 XR, hip + pelvi s, unila teral No observ ation record ed. [email or web address] [facility] [place] [address] [facility] [address], [place], [address], 06/21/2024 12:02:31 07/12/2007/12/2024 CT, abdom en + pelvi s, w/o contr ast No observ ation record ed. [address], [place], [address], 07/15/2024 11:27:52 07/16/2007/16/2024 CT, abdom en + pelvi s, w/o contr ast No observ ation record ed. [address], [place], [address], 08/27/2024 14:24:26 08/11/20 24 08/11/2024 CT, abdom en + pelvi s, w/o contr ast No observ ation record ed. [address], [place], [address], 08/27/2024 14:24:26 10/23/19 25 10/16/2024 CT, thora colum bar spine , w/o contr ast No observ ation record ed. [email or web address] [email or web address] [facility] [address], [place], [address], 11/18/2024 11:52:31 Result Notes None recorded. 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 3 01:10:47 Seborrhei c dermatiti s of scalp 944703035 Active 2022 Not [address] [facility] 3 01:10:47 Chronic physical disabilit y 923295121 Active 2018 Not [address] [facility] 3 01:10:47 History of deep vein thrombosi s 542118731 Active 2017 [facility] Available [facility] 3 01:10:47 Heartburn 53351958 Active [address] [facility] 3 01:10:47 Ultrasoun d scan abnormal 063008057 Active 2020 Not Available [facility] 3 01:10:47 Hypertrop hy of nasal turbinate s 60537756 Active 2021 Not Available [facility] 3 01:10:47 Sensorine ural hearing loss of bilateral ears 863303006 Active 2021 Not Available [facility] 3 01:10:47 Periphera l venous insuffici ency 90876518 Active 2020 Not Available [facility] 3 01:10:47 Myocardia l infarctio n 95196592 Completed 201705/08/2018 Not Available [facility] 3 01:10:48 Stable angina 900122138 Active 2017 Not Available [facility] 3 01:10:48 End stage renal failure on dialysis 911916156 Active 2019 Not Available [facility] 3 01:10:48 Degenerat ion of lumbar intervert ebral disc 28307567 Active 2018 Not Available [facility] 3 01:10:48 Gastroeso phageal reflux disease without esophagit is 414811459 Active 2017 Not Available [facility] 3 01:10:48 Anemia 035017907 Active 2017 Not Available [facility] 3 01:10:48 Chronic low back pain 310128518 Active 2018 Not Available [facility] 3 01:10:48 Pain in toe 041750207 Active 2018 Not Available [facility] 3 01:10:48 Pain in toe 510749007 Active 2018 Not Available [facility] 3 01:10:48 Right upper quadrant pain 709819692 Active 2020 Not Available [facility] 3 01:10:48 Type 2 diabetes mellitus without complicat ion 454824871 Completed 201701/10/2019 Not Available [facility] 3 01:10:48 Pain in left foot 86316985214 9107 Active 2019 Not Available [facility] 3 01:10:48 Vitamin D deficienc y 87147489 Active 2017 Not Available [facility] 3 01:10:49 Seasonal allergic rhinitis 532685261 Active 2017 Not Available [facility] 3 01:10:49 Sinusitis 59761355 Active 2021 Not Available [facility] 3 01:10:49 Hypertens bianca disorder 63308715 Active 2017 Not Available [facility] 3 01:10:49 Osteoarth ritis 072713606 Active 2019 Not Available [facility] 3 01:10:49 Umbilical hernia 033291566 Active 2018 Not Available [facility] 3 01:10:49 Vertigo 933908909 Active 2021 Not Available [facility] 3 01:10:49 Abrasion and/or friction burn of skin 989838401 Active 2018 Not Available [facility] 3 01:10:49 Chronic sinusitis 50529855 Active 2021 Not Available [facility] 3 01:10:49 Multiple benign melanocyt ic nevi 330285484 Active 2017 Not Available [facility] 3 01:10:50 Deep venous thrombosi s of lower extremity 869473174 Active 2022 Not Available [facility] 3 01:10:50 Dizziness 441094075 Active 2017 Not Available [facility] 3 01:10:50 Dysphagia 71599775 Active 2021 Not Available [facility] 3 01:10:50 Obesity 690876013 Active 2017 Not Available [facility] 3 01:10:50 Ketoacido sis due to type 1 diabetes mellitus 861966689 Active 2019 Not Available [facility] 3 01:10:50 Nausea 361665428 Active 2021 Not Available [facility] 3 01:10:50 Congestiv e heart failure 45640506 Active 2017 Not Available [facility] 3 01:10:50 Diabetic periphera l neuropath y 160348957 Active 2017 Not Available [facility] 3 01:10:51 Asymmetri nikos hearing loss 248858419 Active 2021 Not Available [facility] 3 01:10:51 Chronic kidney disease stage 4 067184291 Completed 201707/29/2020 Not Available [facility] 3 01:10:51 Chronic kidney disease stage 5 025404050 Active 2019 Not Available [facility] 3 01:10:51 Uncontrol led type 2 diabetes mellitus 082801925 Completed 201705/16/2019 Aditya Castro MD [address] [place] [address], [address] [address], [place], [address] , [facility] 4 09:03:03 Gastritis 7330628 Active [address] [facility] 3 01:10:51 End-stage renal disease 08184418 Active 2019 Not Available [facility] 3 01:10:51 Type 1 diabetes mellitus 54657200 Active 2018 Not Available [facility] 3 01:10:52 Atrial fibrillat ion 75320444 Active [address] [facility] 3 01:10:52 Hyperlipi demia 11215533 Active 2017 Not [address] [facility] 3 01:10:52 Heart disease 19291538 Active [address] Not [address] [facility] 3 01:10:52 Hyperpara thyroidis m 19979253 Active 2018 Not [address] [facility] 3 01:10:52 Nasal congestio n 32217854 Active 2021 [facility] Available [facility] 3 01:10:52 Diabetes mellitus 56546956 Active 2017 Not Available [facility] 3 01:10:52 Obstructi ve sleep apnea syndrome 69435724 Active 2018 Not [address] [facility] 3 01:10:53 Epigastri c pain 95947864 Active 2021 Not Available [facility] 3 01:10:53 Chronic idiopathi c constipat ion 02557351 Active 2020 Not Available [facility] 3 01:10:53 Corneal abrasion 74985747 Active 2018 Not Available [facility] 3 01:10:53 Dystrophi a unguium 06475406 Active 2018 Not Available [facility] 3 01:10:53 Gout 65408053 Active 2017 Not Available [facility] 3 01:10:53 Chronic renal failure 65545831 Completed 201705/08/2018 Not Available [facility] 3 01:10:54 Skin lesion 00752971 Active 2017 Not Available [facility] 3 01:10:54 Hypertrig lyceridem ia 142425890 Active 2022 Aditya Castro MD [address], [address], [place], [address] , [employer] 3 16:04:08 Chronic constipat ion 735619928 Active 2022 Aditya Castro MD [address], [address], [place], [address] , [employer] 3 16:45:46 Cough 94709003 Active 2022 Aditya Castro MD [address], [address], [place], [address] , [employer] 3 12:45:44 Bronchiti s 60934625 Active 2022 Aditya Castro MD [address], [address], [place], [address] , [employer] 3 09:22:50 Allergic rhinitis 88762606 Active 2022 Aditya Castro MD [address], [address], [place], [address] , [employer] 3 09:28:39 Allergic contact dermatiti s 902785563 Active 2022 Aditya Castro MD [address], [place], [address] , [employer] 3 16:06:02 Tinea cruris 084531288 Active 2022 Aditya Castro MD [address], [place], [address] , [employer] 3 16:06:15 Acute bacterial sinusitis 63909268 Active 2023 KATIE Chen [address], [address] [address], [place], [address] , [facility] 4 09:55:25 Ulcer of mouth 54753058 Active 2023 Aditya Castro MD [address] [address], [place], [address] , [facility] 4 09:03:52 Onychomyc osis of toenails 635989805 Active 2023 Chris Linda DPM [address], [address] [address], [place], [address] , [facility] 4 12:24:55 Folliculi tis 64292499 Active 2023 Aditya Castro MD [address] [address], [place], [address] , [facility] 4 10:26:36 Pain of right knee joint 95453803839 4100 Active 2023 Aditya Castro MD [address] [address], [place], [address] , [facility] 4 10:31:07 Bleeding of ear canal 068916087 Active 2023 Aditya Castro MD [address] [address], [place], [address] , [facility] 4 10:40:38 Acute left otitis media 225701809 Active 2023 Rohit Jessica MD [address], [place], [address] , [facility] 4 16:04:39 Thoracic back pain 502483760 Active 2023 Aditya Castro MD [address] [address], [place], [address] , [facility] 4 16:28:59 Pain of right shoulder blade 732160098 Active 2023 Aditya Castro MD [address], [address], [place], [address] , [facility] 4 16:30:04 Degenerat ion of thoracolu mbar intervert ebral disc 42456989 Active 2023 Aditya Castro MD [address], [address], [place], [address] , [facility] 4 16:30:54 Hypothyro idism 15773973 Active 2023 Aditya Castro MD [address], [address], [place], [address] , [facility] 4 16:34:29 Uncontrol led type 2 diabetes mellitus 252524577 Active 2023 Aditya Castro MD [address], [address], [place], [address] , [facility] 4 09:03:03 Bilateral osteoarth ritis of knees 79351596556 9107 Active 2023 Sofia agosto, [facility] 4 11:42:16 Pain of left knee joint 07873100335 4107 Active 2023 LESLY Gambino [address], [address], [place], [address] , [facility] 4 13:42:14 Pain in right hip joint 39976237183 9102 Active 2023 KELLE John, [facility] 4 11:11:43 Trochante margarita bursitis of right hip 85084243541 9100 Active 2023 LESLY Gambino [address], [address], [place], [address] , [facility] 4 12:00:40 Gallstone 236171313 Active 2023 Aditya Castro MD [address], [address], [place], [address] , [facility] [employer] [facility] [employer] 4 11:21:33 Right flank pain 582637596 Active 2023 Aditya Castro MD [address], [address], [place], [address] , [facility] [employer] 4 11:29:38 Kidney stone 12111038 Active 2023 Aditya Castro MD [address], [address], [place], [address] , [employer] [facility] [employer] 4 11:31:01 Pleural effusion 14630929 Active 2024 Aditya Castro MD [address], [address], [place], [address] , [facility] [employer] [facility] [employer] [facility] 5 11:40:43 Dyspnea on exertion 29201749 Active 2024 Milly Hidalgo NP [address], [address], [place], [address] , [employer] [facility] [employer] 5 11:13:03 Multiple nodules of lung 076310875 Active 2024 Milly Hidalgo NP [address], [address], [place], [address] , [facility] [employer] [facility] [employer] [facility] 5 11:31:08 Notes:blood clots, coronary artery disease, head trauma or injury, kidney disease, seizures, use of blood thinners, balance problems, numbness or tingling, loss of memory, swelling in legs, shortness of breath, muscle pain, back/neck pain, swollen or painful joints, excessive thirst, dry mouth, sleep apnea, wears glasses Some problems listed in Document: #[id number] could not be added to this patient's chart. Please review this document and add these problems to the patient's chart manually as needed. Problem Notes None recorded. Procedures Surgical History Date Name Laterality Status Provider Name and Address Organization Details Recorded Time 05/02/20 24 Nail Debridement completed Chris Linda DPM [address], [address], [place], [address], [employer] 05/20/2024 09:31:13 03/11/20 24 Nail Debridement completed Chris Linda DPM [address], [address], [place], [address], [employer] 03/11/2024 12:35:50 03/11/20 24 Wound Care-Podiatry completed Chris Linda DPM [address], [address], [place], [address], [employer] 03/11/2024 12:34:57 01/08/20 24 Wound Care-Podiatry completed Chris Linda DPM [address], [address], [place], [address], [employer] 01/08/2024 12:26:31 12/25/19 24 Medicare Wellness CPT Code, subsequent completed Beth LUAN Willis [facility] [employer] 12/25/2023 15:24:37 11/06/19 24 Medicare Wellness CPT Code, subsequent cancelled November LUAN Willis [facility] [employer] 11/03/2023 10:10:00 01/08/20 22 SEPTOPLASTY (SURG) completed Not Available [facility] 10/19/2022 01:16:48 01/22/20 21 Cardiac Cath completed Not Available [facility] 01:06:21 reduction of nasal turbinate completed Not Available [facility] 10/19/2022 01:06:21 procedure on heart completed Lisa Lopez CNA [facility] 05/10/2024 11:11:45 Imaging Results Imaging Date Name Status LastModified by Organization Details LastModified Time 06/21/2024 XR, hip + pelvis, unilateral completed [email or web address] [place] [address], [place], [address], 06/21/2024 12:02:31 07/12/2024 CT, abdomen + pelvis, w/o contrast completed [facility] [address], [place], [address], 07/15/2024 11:27:52 07/16/2024 CT, abdomen + pelvis, w/o contrast completed [address], [place], [address], 08/27/2024 14:24:26 08/11/2024 CT, abdomen + pelvis, w/o contrast completed [address], [place], [address], 08/27/2024 14:24:26 10/16/2024 CT, thoracolumbar spine, w/o contrast [place] [address] [facility] [address], [place], [address], 11/18/2024 11:52:31 Procedure Notes None recorded. Medical Equipment None Reported. Allergies Allergen ID Allergen Name Allergen Category Reaction Reaction Severity Criticality Documentation Date Start Date Code Code System Note Provider Name and Address Organization Details Recorded Time 1834 Iodinated contrast media (substanc e) medicatio n rash severe Not available 10/19/2022 65215 2004 SNOMED Not Available [facility] 3 01:16:23 1835 Brilinta medicatio n rash severe Not available 10/19/2022 33573 36 RxNorm Not Available [facility] 3 01:16:23 1836 allopurin ol medicatio n other severe Not available 10/19/2022 519 RxNorm Not Available [facility] 3 01:16:23 Medications Name Sig Start Date Stop Date Status Note LastModified by Organization Details LastModified Time cyclobenz aprine 10 mg tablet TAKE 1 TABLET BY MOUTH EVERY 12 HOURS NEEDED 10/31 completed Not Available Not Available Not Available furosemid e 40 mg tablet TK [...] oral route as directed for 7 days. 2024 active Not Available Not Available Not Avai lable doxycycli ne hyclate 100 mg capsule 04/24 completed Not Available Not Available Not Available atorvasta tin 20 mg tablet TAKE 1 TABLET BY MOUTH AT BEDTIME WITH 40MG TABLET TO EQUAL 60 MG DAILY active Not Available Not Available No t Available ketoconaz ole 2 % shampoo APPLY TOPICALL Y 2 TIMES EVERY WEEK NEEDED 2024 active Not Available Not Available Not Avai lable tizanidin e 2 mg tablet 10/31 completed Not Available Not Available Not Available albuterol sulfate 2.5 mg/3 mL (0.083 %) solution for nebulizat ion USE 1 VIAL VIA NEBULIZE R EVERY 6 HOURS NEEDED FOR DYSPNEA 04/25 completed Not Available Not Available Not Available cetirizin e 10 mg tablet TAKE 1 TABLET BY MOUTH DAILY NEEDED 2024 active Not Available Not Available [...] EVERY 8 HOURS FOR 7 DAYS NEEDED 2024 active Not Available Not Available Not Avai lable metoprolo l succinate ER 50 mg tablet,ex [...] oral route as needed for 5 days. 10/31 completed Not Available Not Available Not Available famotidin e 40 mg tablet TAKE 1 [...] BY MOUTH EVERY DAY WITH FOOD NEEDED 10/31 completed Not Available Not Available Not Available oxycodone -acetamin ophen 5 mg-325 mg [...] mg by injectio n route. 2023 active [facility]: [phone] 12-08 Not Available Not Available Not [...] t Available amlodipin e 10 mg tablet 10/31 completed Not Available Not Available Not Available doxycycli ne monohydra te 100 mg capsule 08/01 completed Not Available Not Available Not Available gemfibroz il 600 mg tablet TAKE 1 TABLET BY MOUTH TWICE DAILY DIRECTED 10/31 completed Not Available Not Available Not Available hydrocodo ne 7.5 mg-acetam inophen 325 mg [...] fluoromet holone 0.1 % eye drops,harry pension 10/31 completed Not Available Not Available Not Available lidocaine 5 % topical patch APPLY 1 PATCH TOPICALL Y TO THE SKIN EVERY DAY. MAY WEAR UP TO 12 HOURS 2024 active Not Available Not Available Not [...] BY MOUTH EVERY DAY IN THE MORNING 2024 active Not Available Not Available Not Avai lable gentamici n 0.1 % topical cream APPLY [...] oral route as directed for 10 days. 2024 active Not Available Not Available Not Avai lable amoxicill in 500 mg-potass ium clavulana te [...] Available moxifloxa socorro 0.5 % eye drops 10/31 completed Not Available Not Available Not Available ciproflox acin 0.3 %-dexamet hasone 0.1 [...] binders) [address] Eric kirk es Not Available Not Available Not Available Byetta [...] e Original Pen Needle 29 gauge x /2 01/07 completed Not Available Not Available Not [...] MatuteikPen U-100 Insulin 100 unit/mL (3 mL) subcutane [...] mL subcutane ous auto-inje ctor active Dr. Gabriel kirk es Not Available Not Available Not [...] Updated DateTime 06/21/2024 177.8 cm 37.9 kg/m2 476106.39 g KELLE John - [facility] 06/21/2024 11:11:01 Date Recorded Body height Body mass index (BMI) Body weight Body temperature Heart rate Oxygen saturation Oxygen saturation in Arterial blood by Pulse oximetry Pain severity - 0-10 verbal numeric rating [Score] - Reported Systolic blood pressure Diastolic blood pressure Provider Name and Address Organization Details Last Updated DateTime 4 177.8 cm 38 kg/m2 303766. 19 g 97.3 [degF] 72 /min 97 % 97 % 10 150 mm[Hg] 78 mm[Hg] Lucinda Fletcher RN [facility] [employer] [facility] 4 11:26:31 Date Recorded Respiratory rate Provider Name a nd Address Organization Details Last Updated DateTime 07/15/2024 22 /min Lisa Gonzáles [address], [place], [address], [facility] An[place] Margarita 07/15/2024 12:05:38 Date Recorded Body height Body mass index (BMI) Body weight Body temperature Heart rate Systolic blood pressure Diastolic blood pressure Provider Name and Address Organization Details Last Updated DateTime 5 177.8 cm 38.6 kg/m2 246465. 1 g 97.2 [degF] 78 /min 140 mm[Hg] 70 mm[Hg] Jessica Macedo RN [facility] [place] 5 14:22:23 Date Recorded Oxygen saturation Oxygen saturation in Arterial blood by Pulse oximetry Provider Name and Address Organization Details Last Updated DateTime 08/27/2024 95 % 95 % Aditya Castro MD [address], [place], [address], [facility] An[place] Marg[place] 08/27/2024 14:24:24 Date Recorded Body height Body mass index (BMI) Body weight Heart rate Oxygen saturation Oxygen saturation in Arterial blood by Pulse oximetry Body temperature Systolic blood pressure Diastolic blood pressure Provider Name and Address Organization Details Last Updated DateTime 5 177.8 cm 37.7 kg/m2 048711. 79 g 80 /min 94 % 94 % 98.3 [degF] 112 mm[Hg] 60 mm[Hg] Nina Pool MA [facility] 5 11:11:14 Date Recorded Body height Body mass index (BMI) Body weight Body temperature Oxygen saturation Oxygen saturation in Arterial blood by Pulse oximetry Systolic blood pressure Diastolic blood pressure Provider Name and Address Organization Details Last Updated DateTime 177.8 cm 38.1 kg/m2 714606. 38 g 97.6 [degF] 95 % 95 % 140 mm[Hg] 86 mm[Hg] Jessica Macedo RN [place] [employer] [facility] 11:50:22 Date Recorded Heart rate Provider Name an d Address Organization Details Last Updated DateTime 11/18/2024 96 /min Lisa Gonzáles [address] [facility], [facility] [address], [place], [address], [place] [employer] 11/18/2024 12:23:14 Social History Question Answer Notes LastModified by Organization Details LastModified Time Tobacco Smoking Status Never Smoker Not Available [employer] 10/19/2022 01:04:37 Do You Have An Advance Directive? No MIGRATION.0301 [id number] Information not available 10/19/2022 What Is Your Level Of Alcohol Consumption? None MIGRATION.0301 286997 Information not available 10/19/2022 Are You Blind Or Do You Have Difficulty Seeing? No MIGRATION.0301 [id number] Information not available 10/19/2022 Is Blood Transfusion Acceptable In An Emergency? Yes Information not available 12/07/2023 What Is Your Level Of Caffeine Consumption? Occasional MIGRATION.0301 [id number] Information not available 10/19/2022 How Much Tobacco Do You Chew? None MIGRATION.0301 050843 Information not available 10/19/2022 What Is Your Code Status? Full Code Information not available 12/07/2023 In The 14 Days Before Symptom Onset, Have You Had Close Contact With A Laboratory-confi rmed COVID-19 While That Case Was Ill? No MIGRATION.0301 [id number] Information not available 10/19/2022 In The 14 Days Before Symptom Onset, Have You Had Close Contact With A Person Who Is Under Investigation For COVID-19 While That Person Was Ill? No MIGRATION.0301 [id number] Information not available 10/19/2022 Are You Deaf Or Do You Have Serious Difficulty Hearing? No MIGRATION.0301 [id number] Information not available 10/19/2022 What Type Of Diet Are You Following? CARDIAC And Renal MIGRATION.0301 479984 Information not available 10/19/2022 Which Illicit Or Recreational Drugs Have You Used? NONE MIGRATION.030 265290 Information not available 10/19/2022 Do You Or Have You Ever Used E-cigarettes Or Vape? Never Used Electronic Cigarettes MIGRATION.[id number] Information not available 10/19/2022 What Is The Highest Grade Or Level Of School You Have Completed Or The Highest Degree You Have Received? RC93091-5 2 Years MIGRATION.[id number] Information not available 10/19/2022 Do You Have An Electrostatic Air Filter? No Information not available 10/31/2024 What Is Your Occupation? DISABLED MIGRATION.[id number] Information not available 10/19/2022 Have There Been Any Changes To Your Family Or Social Situation? No Information not available 12/07/2023 Are There Any Guns Present In Your Home? No MIGRATION.[id number] Information not available 10/19/2022 Do You Have A Humidifier? No Information not available 10/31/2024 Do You Use Insect Repellent Routinely? No Information not available 12/07/2023 Where Do You Live? SingleLevelHouse Information not available 12/07/2023 Advance Directive- Providers Has Reviewed Directive And Consents To Follow Them (insert Provider Name With Any Objectives In Notes Field) No [id number] Information not available 10/19/2022 Presence Of Domestic [...] Do You Have A Medical Power Of Ultrasound Spec? No Information not available 12/07/2023 Do You Have Moisture Problems In Your Home? No Information not available 10/31/2024 What Was The Date Of Your Most Recent Tobacco Screening? 10/31/2024 Information not available 10/31/2024 Do You Have Any Pets? Yes Information not available 12/07/2023 What Is Your Relationship Status? Single MIGRATION.0301 [id number] Information not available 10/19/2022 Do You Use Your Seat Belt Or Car Seat Routinely? Yes MIGRATION.0301 677738 Information not available 10/19/2022 Do You Have Smoke And Carbon Monoxide Detectors In Your Home? Yes Information not available 12/07/2023 Are You Passively Exposed To Smoke? No Information not available 12/07/2023 Do You Or Have You Ever Used Smokeless Tobacco? Never Used Smokeless Tobacco MIGRATION.0301 610191 Information not available 10/19/2022 Are There Any Smokers In Your House? No Information not available 12/07/2023 Do You Feel Stressed (tense, Restless, Nervous, Or Anxious, Or Unable To Sleep At Night)? EX1170-8 MIGRATION.0301 323778 Information not available 10/19/2022 Do You Use Sunscreen Routinely? No Information not available 12/07/2023 Have You Recently Traveled Abroad? No MIGRATION.0301 142543 Information not available 10/19/2022 Are You Currently In School? No MIGRATION.0301 388336 Information not available 10/19/2022 Sex: Unknown Functional Status Question Answer Note LastModified by Organizat ion Details LastModified Time Do you have difficulty walking or climbing stairs? No MIGRATION.[id number] Information not available 10/19/2022 Do you have difficulty doing errands alone? No MIGRATION.[id number] 26 Information not available 10/19/2022 Do you have difficulty dressing or bathing? No MIGRATION.[id number] 26 Information not available 10/19/2022 What is your exercise level? Occasional MIGRATION.[id number] 26 Information not available 10/19/2022 Mental Status Question Answer Note LastModified by Organizat ion Details LastModified Time Do you have difficulty concentrating, remembering or making decisions? No MIGRATION.[id number] 6 Information not available 10/19/2022 Family History Relationship Description Onset Age of this Age Resolved Age Notes LastModified by Organization Details LastModified Time Father Heart disease MIGRATION.094 [id number] Not available 10/19/2022 01:06:25 Father Hypertensive disorder MIGRATION.457 [id number] Not available 10/19/2022 01:06:25 Notes:cancer-mother NO ENT [...] HAVE YOU BEEN HOSPITALIZED OR SEEN IN [facility] IN THE PAST YEAR ? N HISTORY WITH COMPLICATIONS WITH ANESTHES IA ? N ARTHRITIS Y NO SIGNIFICANT PAST MEDICAL HISTORY Y DIABETES, TYPE Y ENT N SEASONAL ALLERGIES N HEARTBURN / REFLUX N HEPATITIS / LIVER DISEASE N SLEEP DISORDER N PAIN Y HEADACHES/MIGRAINES N SEIZURES/EPILEPSY N PACEMAKER N DIZZINESS N HEART DISEASE/HEART PROBLEMS Y CANCER: SPECIFY N ANESTHESIA COMPLICATIONS N AUTOIMMUNE DISEASE N Immunizations Vaccine Type Date Status Note Provider Nam e and Address Organization Details Recorded Time Influenza, split virus, quadrivalent, PF 3 completed [facility] [place] 07/03/2023 11:25:39 pneumococcal polysaccharide PPV23 0 completed [...] SNOMED-CT Code Diagnosis ICD10 Code Diagnosis Note [id number] [facility] [address] [place] [address] 10/27/2020 00:00:00 10/27/2020 10:48:24 [id number] [facility] [address] [place] [address] 03/08/2021 00:00:00 03/08/2021 17:34:39 [id number] _ATHENA_M IGRATION_ DEFAULT_1 _1 , 03/22/2021 00:00:00 03/22/2021 20:53:26 [id number] [facility] [address] [place] [address] 06/08/2021 00:00:00 06/09/2021 09:19:54 [id number] [facility] [address] [place] [address] 06/22/2021 00:00:00 06/22/2021 16:14:11 [id number] [facility] [address] [place] [address] 06/29/2021 00:00:00 06/29/2021 12:04:58 [id number] [facility] [address] [place] [address] 07/22/2021 00:00:00 07/22/2021 10:59:05 [id number] [facility] [address] [place] [address] 09/09/2021 00:00:00 09/09/2021 17:59:48 [id number] [facility] [address] [facility] [place] [address] 10/05/2021 00:00:00 10/05/2021 16:51:40 [id number] [facility] [place] [address] [place] [address] 10/12/2021 00:00:00 10/12/2021 16:03:48 [id number] [facility] [place] [address] [place] [address] 11/18/2021 00:00:00 11/18/2021 15:39:06 [id number] _ATHENA_M IGRATION_ DEFAULT_1 _1 , 12/20/2021 00:00:00 01/15/2022 22:33:55 [id number] [facility] [place] [address] [facility] [place] [place] [address] 12/28/2021 00:00:00 12/28/2021 11:10:02 [id number] [facility] [place] [address] [place] [address] 01/18/2022 00:00:00 01/18/2022 16:24:34 [id number] [facility] [place] [address] [place] [address] 01/25/2022 00:00:00 01/25/2022 15:00:07 [id number] [facility] [place] [address] [place] [address] 02/17/2022 00:00:00 02/17/2022 15:06:30 [id number] [facility] [place] [address] [place] [address] 03/29/2022 00:00:00 03/29/2022 10:58:26 [id number] [facility] [place] [address] [place] [address] 05/12/2022 00:00:00 05/12/2022 14:21:01 [id number] _ATHENA_M IGRATION_ DEFAULT_1 _1 , 05/16/2022 00:00:00 05/16/2022 16:50:12 [id number] [facility] [address] [place] [address], [place] [address] 07/13/2022 00:00:00 07/13/2022 17:28:54 [id number] [facility] [address] [place] [address] 09/06/2022 00:00:00 09/06/2022 15:23:[id number] [place] [address] [address] 10/11/2022 00:00:00 10/11/2022 17:27:53 [id number] Aditya Castro MD [address] [address] 11/01/2022 09:46:21 11/01/2022 10:14:11 [id number] Aditya Castro MD [address] [address] 11/08/2022 15:47:51 11/08/2022 16:30:48 Vitamin D deficiency 29901467 E55.9 Gout 84896913 M10.9 Hyperparathyroidism 6699 9008 E21.3 Uncontroll ed type 2 diabetes mellitus 415856412 E11.65 Hypertriglyceridemia 302 281141 E78.2 Hyperlipidemia 87986695 E78.5 Chronic constipation 236 419342 K59.09 Obesity 186797406 E66.9 [id number] Aditya Castro MD [address] [address] 01/23/2023 09:08:48 01/23/2023 09:38:23 Bronchitis 40502743 J40 Cough 57048570 R05.9 Chronic ki dney disease stage 5 892809673 N18.5 Allergic rhinitis 125024 04 J30.9 Vitamin D deficiency 347 13548 E55.9 [id number] Aditya Castro MD [address] [address] 06/27/2023 15:52:59 06/27/2023 16:15:54 Allergic contact dermatitis 430431916 L23.9 Tinea cruris 408720410 B 35.6 Administra tion of influenza vaccine 33195890 Z23 Chronic low back pain 27 2792637 M54.59 Gout 73635173 M10.9 [id number] Aditya Castro MD [address] [address] 07/10/2023 15:50:39 07/10/2023 16:20:39 Vitamin D deficiency 78274117 E55.9 Gout 06656317 M10.9 Hyperparathyroidism 6699 9008 E21.3 Uncontroll ed type 2 diabetes mellitus 591022501 E11.65 Hypertriglyceridemia 302 719476 E78.2 Hyperlipidemia 22181966 E78.5 Chronic constipation 236 713042 K59.09 Obesity 267505496 E66.9 Bronchitis 48307981 J40 [id number] KATIE Chen [address] [address] 12/07/2023 09:26:05 12/07/2023 11:06:01 Acute bacterial sinusitis 11800298 J01.90 Add humidifcat ion to bedroom at night [id number] Aditya Castro MD [address] [address] 12/25/2023 15:06:36 12/25/2023 16:45:08 Gout 18117337 M10.9 Vitamin D deficiency 347 66640 E55.9 Hyperparathyroidism 6699 9008 E21.3 Uncontroll ed type 2 diabetes mellitus 525140182 E11.65 Hypertriglyceridemia 302 802497 E78.2 Hyperlipidemia 31983587 E78.5 Chronic constipation 236 041677 K59.09 Obesity 766289425 E66.9 Bronchitis 91116166 J40 Adult heal th examination 058004450 Z00.00 Screening for disorder 965518939 Z13.9 Ulcer of mouth 67659366 K12.1 Screening for malignant neoplasm of prostate 014694423 Z12.5 [id number] Chris Linda DPM [facility] [place] [address] [place] [address] 01/08/2024 11:55:29 01/11/2024 12:25:06 Onychomycosis of toenails 040492700 B35.1 educated on conditiont opical antifungal Rxfollow-u p in 1-2 months Blister of toe without infection 86069081 S90.424A right 3rd toeMonitor for infection dailyBetad ine wet-to-dry dressings dailyfollo w-up 1 week Diabetic p eripheral neuropathy 642121871 E11.40 Patient educated on neuropathy , diabetes, diabetic diet, and daily foot exams. Patient is to check feet daily for new wounds, blisters, redness to prevent infection and ulceration s to the feet. Patient will return to clinic in 3 months for diabetic foot workup. Dystrophia unguium 63106 009 L60.3 nails debrided without incident [id number] Aditya Castro MD [facility]_[address] [address] 02/15/2024 10:01:48 02/15/2024 10:47:11 Gout 95999863 M10.9 Vitamin D deficiency 347 86664 E55.9 Hyperparathyroidism 6699 9008 E21.3 Uncontroll ed type 2 diabetes mellitus 732583814 E11.65 Hypertriglyceridemia 302 852239 E78.2 Hyperlipidemia 00463170 E78.5 Chronic constipation 236 258051 K59.09 Obesity 674105241 E66.9 Bronchitis 05362386 J40 Folliculitis 87520129 L7 3.9 Seborrheic dermatitis of scalp 075075279 L21.0 Pain of ri ght knee joint 3594085572 61378 M25.561 Bleeding of ear canal 30 0708345 H92.22 [id number] Rohit Jessica MD [facility] [place] [address] [place] [address] 02/15/2024 15:35:10 02/16/2024 12:44:58 Acute left otitis media 055508235 H66.92 [id number] Chris Linda DPM [facility] [place] [address] [place] [address] 03/11/2024 12:07:37 03/12/2024 16:35:57 Blister of foot without infection 8120296 S90.821A right foot medial 1st metatarsop halangeal jointofflo adingwound care daily until healedfoll ow-up 10 days Blister of toe without infection 82105791 S90.425A left 4th toetriple antibiotic ointment and Band-Aid appliedwou nd care as above Diabetes mellitus 717430 09 E13.9 Continue diabetic control per PCP recommenda tion Diabetic p eripheral neuropathy 830953621 E11.40 Patient educated on neuropathy , diabetes, diabetic diet, and daily foot exams. Patient is to check feet daily for new wounds, blisters, redness to prevent infection and ulceration s to the feet. Patient will return to clinic in 3 months for diabetic foot workup.con tinue diabetic shoe gear Dystrophia unguium 27282 009 L60.3 nails debrided without incident [id number] Aditya Castro MD [address] [address] 04/16/2024 16:08:23 04/16/2024 17:22:18 Thoracic back pain 725607342 M54.6 Pain of ri ght shoulder blade 517524171 M25.511 Degenerati on of thoracolumbar intervertebral disc 85124891 M51.35 Hypothyroidism 21440198 E03.9 Obesity 374726190 E66.9 End stage renal failure on dialysis 287677857 N18.6 Chronic low back pain 27 6759400 M54.59 [id number] Chris Linda DPM [facility] [place] [address] [place] [address] 05/02/2024 10:29:22 05/20/2024 11:32:52 Onychomycosis of toenails 267947565 B35.1 right great toenailsch eduled total nail avulsionRe viewed treatment optionsFol low-up for procedure Right great toenail avulsion scheduled 07/15/2024 Peripheral venous insufficiency 97690908 I87.2 Rx compressio n stockings 20 30 mm Hgelevatio n when at restmonito r for signs of DVT at present seek medical attention immediatel y Dystrophia unguium 21809 009 L60.3 nails debrided without incident Abrasion a nd/or friction burn of skin 993905836 T14.8XXA healed abrasions x4 left lower leg Diabetic p eripheral neuropathy 096743528 E11.40 Patient educated on neuropathy , diabetes, diabetic diet, and daily foot exams. Patient is to check feet daily for new wounds, blisters, redness to prevent infection and ulceration s to the feet. Patient will return to clinic in 3 months for diabetic foot workup.jose ferreira diabetic shoe gear [id number] Aditya Castro MD [address] [address] 05/07/2024 09:01:36 05/07/2024 09:40:15 Gout 33567314 M10.9 Vitamin D deficiency 347 47713 E55.9 Hyperparathyroidism 6699 9008 E21.3 Uncontroll ed type 2 diabetes mellitus 277054499 E11.65 Hypertriglyceridemia 302 744994 E78.2 Hyperlipidemia 41220541 E78.5 Chronic constipation 236 490924 K59.09 Obesity 745046301 E66.9 Pain of ri ght knee joint 4718419436 64238 M25.561 Chronic Screening for malignant neoplasm of prostate 126102890 Z12.5 Chronic back pain 108041 002 G89.29 Screening colonoscopy 44 6232574 Z12.11 [id number] LESLY Gambino [facility] Ortho [place] [address] [place] [address] 05/10/2024 10:46:13 05/10/2024 11:48:23 Pain of right knee joint 0919805106 83487 M25.561 Bilateral osteoarthritis of knees 4924003319 91387 M17.0 Pain of le ft knee joint 7653609651 08772 M25.144 [id number] Aditya Castro MD [address] [address] 05/21/2024 15:45:57 05/21/2024 16:21:32 Gout 81160243 M10.9 Vitamin D deficiency 347 32202 E55.9 Uncontroll ed type 2 diabetes mellitus 783508339 E11.65 Hypertriglyceridemia 302 809467 E78.2 Hyperlipidemia 53829894 E78.5 Chronic constipation 236 066262 K59.09 Obesity 984217511 E66.9 Pain of ri ght knee joint 4018792202 86156 M25.561 Chronic Chronic back pain 198085 002 G89.29 [id number] LESLY Gambino [facility] [place] [address] [place] [address] 06/21/2024 11:06:53 06/21/2024 11:57:45 Bilateral osteoarthritis of knees 1612256886 04594 M17.0 Pain of ri ght knee joint [id number] 33110 M25.561 Pain of le ft knee joint 9065307507 75199 M25.562 Pain in ri ght hip joint 7448524853 51414 M25.551 Trochanter ic bursitis of right hip 2950774113 45476 M70.61 [id number] Aditya Castro MD [address] [address] 07/15/2024 10:53:35 07/15/2024 12:16:54 Chronic constipation 805176312 K59.09 Chronic back pain 637905 002 G89.29 Obesity 413455104 E66.9 [facility]en in [facility] [id number] Z76.89 Gallstone 503727262 K80. 20 Right flank pain 0186563 09 R10.9 Kidney stone 70902540 N2 0.0 Rt Impaired mobility 216638 05 Z74.09 Due to pain [id number] Aditya Castro MD [facility]_[address] [address] 08/27/2024 14:12:33 08/27/2024 14:51:01 Right flank pain 175849744 R10.9 Kidney stone 88146353 N2 0.0 Rt Gallstone 571554329 K80. 20 Chronic constipation 236 651044 K59.09 Chronic back pain 887495 002 G89.29 Impaired mobility 346907 05 Z74.09 Due to pain Obesity 608126786 E66.9 Hospital i npatient stay within past 30 days 5840589461 106 Z76.89 Gout 42344735 M10.9 Gastroesop hageal reflux disease without esophagitis 271112189 K21.9 End-stage renal disease 95332550 N18.6 History of deep vein thrombosis 856530361 Z86.718 Hyperlipidemia 65550718 E78.5 Hypertriglyceridemia 302 605147 E78.2 [id number] Milly Hidalgo NP [facility] Pulmonolo gy Celestine [address] [facility] [address] [place] [address] 10/31/2024 10:42:36 10/31/2024 12:31:33 Dyspnea on exertion 32155816 R06.09 Most likely cardiac related-wi ll do r/o for pulmonaryL ab work todayCAT-2 3Mmrc-3PFT for baselineAw are to use Albuterol inhaler as needed-ok to use when sobEncoura ge patient to remain activefoll ow-up once testing is complete-s ooner for any changes in breathing and increase use of inhaler Multiple n odules of lung 003883265 R91.[address] findings from 02/2024 and 06/2024 and continued worsening sob will do CT chest-pt is on Warfarin currently- unable to find recent PT/INR-he is followed by cardiology for coumadin and a-fib Atrial fibrillation 4943 6004 I48.91 continue care with cardiology -must go to ER for any worsening of SOB/chest pain or palpitatio ns-patient left ER yesterday without being seen due to sob-denies any complaints at present except the sob Body mass index 30+ - obesity 875867197 Z68.37 [id number] Aditya Castro MD S[facility] [address] [address] 11/18/2024 11:23:35 11/18/2024 12:04:29 Bronchitis 41095324 J40 Cough 88678658 R05.9 Seborrheic dermatitis of scalp 510309118 L21.0 End-stage renal disease 41428063 N18.6 Atrial fibrillation 4943 6004 I48.91 Health Concerns Section Related Observation LastModified by Organization Detai ls LastModified Time None Recorded Concern Status LastModified by Organization Details LastModified Time None Recorded Advance Directives Directive N: Payers Encounter Date Sequence Insurance Name Policy Number Policy Ge Covered Member ID Ge Member ID Guarantor Name 06/21/2024 2 [place] WHEN MEDICARE OR MEDICARE REPLACEMENT PRIMARY) Juvenal Daigle [id number] Juvenal Newcombe 06/21/2024 1 [facility] (MEDICARE REPLACEMENT/AD VANTAGE - PPO) [id number] Juvenal Vargasbe [id number] Juvenal Newcombe 07/15/2024 2 [place] OR MEDICARE REPLACEMENT PRIMARY) Juvenal Daigle [id number] Juvenal Newcombe 07/15/2024 1 [facility] (MEDICARE REPLACEMENT/AD VANTAGE - PPO) [id number] Juvenal Vargasbe [id number] Juvenal Newcombe 08/27/2024 2 [place] OR MEDICARE REPLACEMENT PRIMARY) Juvenal Daigle [id number] Juvenal Newcombe 08/27/2024 1 [facility] (MEDICARE REPLACEMENT/AD VANTAGE - PPO) [id number] Juvenal Vargasbe [id number] Juvenal Newcombe 10/31/2024 2 [place]ARE OR MEDICARE REPLACEMENT PRIMARY) Juvenal Daigle [id number] Juvenal Newcombe 10/31/2024 1 [facility] (MEDICARE REPLACEMENT/AD VANTAGE - PPO) [id number] Juvenal Vargasbe [id number] Juvenal Newcombe 11/18/2024 2 [place] WHEN [place]ARE OR MEDICARE REPLACEMENT PRIMARY) Juvenal Daigle [id number] Juvenal Newcombe 11/18/2024 1 [facility] (MEDICARE REPLACEMENT/AD VANTAGE - PPO) [id number] Juvenal Vargasbe [id number] Juvenal Vargasbe Notes Date Note Type Note [...] the groin with weight-bearing. LESLY Gambino [address] [facility], [facility] [address], [place], [address], [place] - [facility] 06/21/2024 12:03:04 07/15/2024 text/html ACV:ED fuv. C/o [...] and Cardio regularly. Aditya Castro MD [address], [place] [address], [place], [address], [place] [facility] 07/15/2024 12:12:12 08/27/2024 text/html ACV:Hospital fuv . Pt was admitted to [facility] from 08/17/24 to 08/19/24 due to hematuria, pneumonia and hyperkalemia. He has finished all his meds and he is feeling much better now. Pt is requesting Rx for bedside commode and marcelo hose stockings. Pt will be seeing Surg for his gallstones next week. Pt is f/u with Uro at [facility] for his kidney stones and hematuria. Pt has chronic back pain for last several years and was seeing Pain clinic and Spine surgeon for it in the past; but he has not seen them for last couple years. Pt is f/u with Nephro, Endo and Cardio regularly. Aditya Castro MD [address], [place] [address], [place], [address], [place] [facility] 08/27/2024 15:24:37 10/31/2024 text/html DyspneaReported bypatient.Quality:dysp marry;can't catch breath;can't get a deep breath Severity:limits activity Duration:sensation/epi sode lasts moments; for 1 years Onset/Timing:daily; wakes from sleep Context:with activity;at rest;when lying down;after episode of chest pain Alleviating Factors:rest; relieved with inhaler Aggravating Factors:activity;when supine Associated Symptoms:no PND; no fever; no chills; no dietary indiscretion; no hemoptysis; no weight gain; no dyspepsia;chest pain/discomfort;palpit ations;orthopnea;wheez ing;fatigue;coughing up sputum;ankle swelling;lightheadedne ss;weakness Milyl Hidalgo NP [address], [place] [address], [place], [address], [place] [facility] 10/31/2024 11:57:01 11/18/2024 text/html ACV: C/o cough, congestion, fatigue, chest pain with deep inspiration for last 2-3 days. Pt denies any known sick contact. Pt has been doing otc meds, but not getting better. Pt doesn't want to go to ED for this. Aditya Castro MD [address] [place] [address], [facility] [address], [place], [address], [facility] 11/18/2024 12:26:41
--- OUTSIDE RECORDS SUMMARY | 2024-11-19 13:28 | XMS_ITS | Clinical Summary ---
Author Organization [facility] Address [address] [place] [address] Phone Care Team Providers Care Chemical Engineering Technologist Name Role Phone Unavailable Primary Care Provider [...] daily 0 12/27/2017 Active Cholecalciferol (VITAMIN D3) 27253 units capsule 1 tab by mouth once [...]
--- OUTSIDE RECORDS SUMMARY | 2024-11-19 13:28 | XMS_ITS ---
Author Organization [facility] Address [address] [place] [address] Care Team Providers Care Vitamin Manager Name Role Phone Aditya Castro MD Primary Care Provider [phone] Alondra Lambert RN Unavailable [phone] Shannon Brock MD, [place] P. Unavailable Leandro Reyes MD Unavailable [phone] Dialysis Access Sites Type Status Location Placement Date Removal Da te Peritoneal Dialysis Catheter Continuous cycling Active Hemodialysis Cath Double Inactive Right N emiliano (side) - Anterior 06/18/2022 06/25/2022 Hemodialysis Cath Triple Inactive Neck - Anterior 202106/16/2022 Procedures Procedure Name Priority Date/Time Associated Diagnosis Comments CARDIOLOGY DOCUMENT SCAN Routine 09/08/2024 11:26 AM STATISTICAL GENETICIST CARDIOLOGY DOCUMENT SCAN Routine 09/07/2024 11:24 AM STATISTICAL GENETICIST CARDIOLOGY DOCUMENT SCAN Routine 09/05/2024 11:06 AM STATISTICAL GENETICIST HEPATITIS C ANTIBODY Routine 07/29/2024 11:01 AM STATISTICAL GENETICIST End stage renal disease (HCC) EGFR Routine 07/29/2024 11:01 AM STATISTICAL GENETICIST End stage renal disease (HCC) HEMOGLOBIN A1C Routine 07/29/2024 11:01 AM STATISTICAL GENETICIST End stage renal disease (HCC) LIPID PANEL Routine 07/29/2024 11:01 AM STATISTICAL GENETICIST End stage renal disease (HCC) PSA SCREEN Routine 07/29/2024 11:01 AM STATISTICAL GENETICIST End stage renal disease (HCC) TSH Routine 10/27/2023 2:30 AM STATISTICAL GENETICIST from Last 3 Months or Most Recently [...] 1 tablet (25 mcg total) by mouth marketing development representative before breakfast 30 tablet 1 11/04/19 [...] mg SL tablet 12/28/19 18 Active peg [id number]-yz ycerin (ARTIFICAL TEARS) 1-0.2-0.2 % ophthalmic solution 1 drop 4 (four) times a day 07/07/20 22 Active potassium chloride ER 20 mEq CR tablet Active Active Problems Problem Noted Date Diagnosed Date End stage renal disease 07/29/2024 Nonrheumatic aortic valve stenosis 11/22/2023 Status post aortic valve replacement 11/22/2023 Status post coronary artery bypass grafting 10/2023 CAD in [place] artery 10/13/2023 Anemia 06/22/2022 Assessment & Plan (06/29/2022 10:12 AM STATISTICAL GENETICIST): Stable, likely 2/2 anemia from ESRD, no [...] 06/22/2022 Assessment & Plan (06/29/2022 10:12 AM STATISTICAL GENETICIST): - Renal consulted, s/p CRRT in the ICU now back on PD. Tolerated well and nephrology following - Trialysis catheter removed - Continue vitamins for renal bone mineral disease. Assessment & Plan (06/28/2022 3:29 PM STATISTICAL GENETICIST): - Renal consulted, s/p CRRT in the [...] 06/22/2022 Assessment & Plan (06/29/2022 10:12 AM STATISTICAL GENETICIST): C/b cardiogenic shock requiring impella in the setting of cath and AHRF 2/2 pulmonary edema, now resolved. TTE demonstrating recovered EF 65% with grade I diastolic dysfunction. - metop as above - continue low dose losartan 12.5mg daily, ok per nephro. Tolerating well - volume management per PD Assessment & Plan (06/28/2022 3:29 PM STATISTICAL GENETICIST): C/b cardiogenic shock requiring impella in the [...] 06/22/2022 Assessment & Plan (06/29/2022 10:12 AM STATISTICAL GENETICIST): Converted to NSR overnight on 06/24. CHADsVASc of 4 not on anticoagulation prior to admission. - cardiology consulted - recommended ongoing rate control - holding off on a/c with high risk for bleeding while on DAPT - reduced metop to 25mg BID in the setting of hypotension, HR 70s NSR Assessment & Plan (06/28/2022 3:30 PM STATISTICAL GENETICIST): Converted to NSR overnight on 06/24. CHADsVASc [...] 08/22/2021 Assessment & Plan (06/29/2022 10:11 AM STATISTICAL GENETICIST): With recurrent chest pain post-cath. He has [...] today Assessment & Plan (06/28/2022 3:30 PM STATISTICAL GENETICIST): With recurrent chest pain post-cath. He has [...] 06/22/2022 Assessment & Plan (06/29/2022 10:11 AM STATISTICAL GENETICIST): Secondary to NSTEMI, s/p Impella since removed on 06/10. Resolved. Assessment & Plan (06/23/2022 4:55 PM CDT): Secondary to NSTEMI, s/p Impella since removed on 06/10. Resolved. Assessment & Plan (06/22/2022 8:22 PM CDT): -Secondary to NSTEMI, s/p Impella since removed on 06/10. Acute hypoxemic respiratory failure 06/09/2022 Assessment & Plan (06/29/2022 10:12 AM STATISTICAL GENETICIST): Secondary to ACS and flash pulmonary edema, [...] (06/10/2022): Added automatically from request for surgery [id number] Abnormal cardiovascular stress test 12/29/2020 Overview (12/29/2020): Added automatically from request for surgery [id number] 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n ative artery of [place] heart with stable angina pectoris ([facility]) 05/23/2017 History of coronary artery stent placement [...] 01/18/2013 Assessment & Plan (06/29/2022 10:12 AM STATISTICAL GENETICIST): A1c well controlled on admission. He uses [...] session Assessment & Plan (06/28/2022 3:28 PM STATISTICAL GENETICIST): A1c well controlled on admission. He uses [...] from doctor or pharmacy Never 12/01/2023 [facility] Utilities Answer Date Recorded In the past 12 months has th e [employer], gas, oil, or water company threatened to [...] week 08/01/2024 How often do you attend adventism or protestant serv ices? Never 08/01/2024 Do you belong [...] in a detention (including now)? No 10/16/2023 Housing Stability Vital [...] time in the past 12 m [facility], were you homeless or living in a detention (including now)? No 08/01/2024 Personal Safety Answer Date Recorded Have you ever been in or are you currently in a harmful physical or emotional relationship or is someone making you feel afraid or unsafe? 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 Male 3:42 AM STATISTICAL GENETICIST Gender Identity Not on file Sexual Orientation Not on file Last Filed Vital Signs Vital Sign Reading Time Taken Comments Blood Pressure 122/75 07/29/2024 1:00 PM STATISTICAL GENETICIST Pulse 116 07/29/2024 1:00 PM STATISTICAL GENETICIST Temperature 36.8 C (98.2 F) 07/29/2024 1:00 PM STATISTICAL GENETICIST Respiratory Rate 16 12/01/2023 11:1 3 AM CDT Oxygen Saturation 96% 12/01/2023 11: 13 AM CDT Inhaled Oxygen Concentration - - Weight 121.2 kg (267 lb 1.6 oz) 07/29/2024 1:00 PM STATISTICAL GENETICIST Height 177.8 cm (5' 10 ) 07/29/2024 1:00 PM STATISTICAL GENETICIST Body Mass Index 38.32 07/29/2024 1:00 PM STATISTICAL GENETICIST Results * Cardiology Document Scan (09/08/2024 11:26 AM STATISTICAL GENETICIST) Anatomical Region Laterality Modality Other us Juan Christianson MD [facility] CARDI[facility] PROCEDU RES Final Result * Cardiology Document Scan (09/07/2024 11:24 AM STATISTICAL GENETICIST) Anatomical Region Laterality Modality Other us Juan Christianson MD CV CARDIAC SERVICES PROCEDU RES Final Result * Cardiology Document Scan (09/05/2024 11:06 AM STATISTICAL GENETICIST) Anatomical Region Laterality Modality Other us Lalit Machuca MD CV CARDIAC SERVICES PROCEDURES F inal Result * (ABNORMAL) eGFR (07/29/2024 11:01 AM STATISTICAL GENETICIST) eGFR 7(L) >=60 mL/min/1. 73 m2 Comment: [...] reviewed 2021. Blood 07/29/2024 11:0 1 AM STATISTICAL GENETICIST 07/29/2024 11:33 AM STATISTICAL GENETICIST Result [facility] Jossie King MD LAB BLOOD ORDERABL ES Final Result Performing Organization Address [facility] de Phone Number [facility] [employer] [place] [address] * PSA screen (07/29/2024 11:01 AM STATISTICAL GENETICIST) PSA-Total 0.55 <=3.90 ng/mL Comment: Interpretive Data [...] revised 21. Blood 07/29/2024 11:0 1 AM STATISTICAL GENETICIST 07/29/2024 11:33 AM STATISTICAL GENETICIST Narrative [facility] - 07/29/2024 12:39 PM STATISTICAL GENETICIST This lab is being obtained as part of a Kidney transplant evaluation, is time sensitive, and should only be drawn during the evaluation visit at [facility] 3[facility] Lab. Jossie King MD LAB BLOOD ORDERABL ES Final Result Performing Organization Address [facility] Co de Phone Number [facility] [place] [employer] [place] [address] * Hepatitis C antibody Blood (07/29/2024 11:01 AM STATISTICAL GENETICIST) Pathologist [facility] Hep C Ab Nonreactive Nonreactive Comment:Antibodies to HCV no t detected. Does NOT exclude the possibility of recent exposure to HCV. Current interpretive data was last revised on 22 Blood 07/29/2024 11:0 1 AM STATISTICAL GENETICIST 07/29/2024 11:32 AM STATISTICAL GENETICIST Narrative [facility] - 07/29/2024 12:47 PM STATISTICAL GENETICIST This lab is being obtained as part of a Kidney transplant evaluation, is time sensitive, and should only be drawn during the evaluation visit at [address] Lab[address] Jossie King MD LAB MICROBIOLOGY - GENERAL ORDERABLES Final Result Performing Organization Address [facility] Co de Phone Number [facility] Department [place] [employer] [place] [address] * (ABNORMAL) Hemoglobin A1c (07/29/2024 11:01 AM STATISTICAL GENETICIST) Hgb A1C 9.0(H) 4.0 - 5.6 % Estimated Average Glucose 212 mg/dL [facility] Comment: The ADA recommends reporting an estimated Average Glucose (eAG) with all Hemoglobin A1c results using the equation derived from a study of 507 normal and diabetic adults. Minority populations were underrepresented and children were not included. (Diabetes Care 2020; 43(S1): S66-S76). The eAG is not equivalent to a fasting glucose. Blood 07/29/2024 11:0 1 AM STATISTICAL GENETICIST 07/29/2024 11:34 AM STATISTICAL GENETICIST Narrative [facility] - 07/29/2024 11:53 AM STATISTICAL GENETICIST This lab is being obtained as part of a Kidney transplant evaluation, is time sensitive, and should only be drawn during the evaluation visit at [address] Jossie King MD LAB BLOOD ORDERABL ES Final Result Performing Organization Address [facility] Co de Phone Number [facility] [place] [employer] [place] [address] * (ABNORMAL) Lipid panel (07/29/2024 11:01 AM STATISTICAL GENETICIST) Pathologist [facility] Cholesterol 114 30 - 199 mg/dL Comment: [...] on 2018. Triglycerides 66 <=149 mg/dL [facility] Comment: Interpretive Data Ages < or [...] on 2018. HDL 29(L) >=40 mg/dL [facility] Comment: Interpretive Data Ages < or [...] 2018. LDL, calculated 71 <=129 mg/dL [facility] Comment: Interpretive Data Ages < or [...] on 2024. Non-HDL Cholesterol 85 mg/dL [facility] Comment: Interpretive Data Ages < [...] revised on 2018. Chol/HDL ratio 4 [facility] Blood 07/29/2024 11:0 1 AM STATISTICAL GENETICIST 07/29/2024 11:33 AM STATISTICAL GENETICIST Narrative [facility] - 07/29/2024 12:10 PM STATISTICAL GENETICIST This lab is being obtained as part of a Kidney transplant evaluation, is time sensitive, and should only be drawn during the evaluation visit at [facility] Lab. us Jossie King MD LAB BLOOD ORDERABL ES Final Result [facility] Department [place] [address] * (ABNORMAL) TSH (10/27/2023 2:30 AM STATISTICAL GENETICIST) Thyroid Stimulating Hormone 13.20(H) 0.30 - 4.20 mcIUnit/mL Blood 10/27/2023 2:30 AM STATISTICAL GENETICIST 10/27/2023 2:42 AM STATISTICAL GENETICIST us Lorne Mcnulty MD LAB BLOOD ORDERABLES Final Result [facility] [address] Department [place] [address] from Last 3 Months or Most Recently Relevant to Health Maintenance
--- OUTSIDE RECORDS SUMMARY | 2024-11-19 13:28 | XMS_ITS | Encounter Summary ---
Author Organization [facility] Address [address] [place] [address] Phone Care Team Providers Care Vacuum Plastic Forming Machine Operator Name Role Phone Unavailable Primary Care Provider Unavailabl e Reason for Visit * Reason Comments Med Refill Encounter Details Date Type Department Care Team (Late st Contact Info) Description 01/25/2019 Refill [facility] [address] [facility] 1 [place] [address] Leandro Reyes MD [address] [address] Social History Tobacco Use Types [...]
--- OUTSIDE RECORDS SUMMARY | 2024-11-19 13:28 | XMS_ITS | Clinical Summary ---
Author Organization [facility] [employer] Address [address] [place] [address] Care Team Providers Care Corporate Fitness Program Coordinator Name Role Phone Aditya Castro Primary Care Provider Unavailab le Source Comments [facility] [employer],non-owned Affiliates and Associated Physician Practices is amultiple site organization consisting of ambulatory clinics and hospital sitesin [place], [place] and [place]. This disclosure is being madepursuant to the Care Everywhere program and may not contain all information available regarding this patient. Last updated 18.[facility] [employer] Allergies Active Allergy Reactions Criticality Noted Date [...] needed 01/25/2019 Active vitamin D, ergocalciferol, (DRISDOL) 44882 units capsule Take 50,000 Units by mouth [...] fluticasone propionate (FLONASE) 50 MCG/ACT nasal spray [place] 1 spray into each nostril once daily 04/24/2019 Active epoetin (PROCRIT) 59455 UNIT/ML injection Inject subcutaneously every 14 days [...] were not included. Juvenal Garvin 1970 Referring Field Talent Qualification Specialist: Leandro Reyes Dialysis Info: Type: PD Time: 160 days (11/05/2019) Blood Type: A Body mass index is 37.8 kg/m . ALERTS Chemical Librarian: Vashti Lizama NP Past Medical History: Diagnosis Date Anemia Arthritis Arthropathy osteo. back and knees see Dr. Cierra ELIAS (coronary artery disease) Community acquired pneumonia 2017 [facility] hospitalized with double pneumonia Congestive heart failure Coronary artery disease Diabetes mellitus type 1 teens dx when he was 13. Insulin since he was dx. Insulin pump currently with dexacom. Vashti Lizama ADMINISTRATION VICE PRESIDENT is professor of management. DM (diabetes mellitus) TYPE 1 DVT (deep venous thrombosis) 2017 [facility]. ESRD on peritoneal dialysis Gout History of blood transfusion 2017 during admission for MD HLD (hyperlipidemia) HTN (hypertension) Hypercholesteremia 5 years on med Hypertension 30's on medications. Kidney disease Myocardial infarction 2017 [facility]. Stent x1 placed. Neuropathy feet Obstructive sleep [...] file Gets together: Not on file Attends methodist service: Not on file Active member of [...] 07/02/2020: Committee Discussion Details: Pt brought to [facility] to discuss his cardiac workup. [...] stress. Stress ejection fraction estimated at 83%. [facility]: 08/26/2019 NM exercise Stress: 04/16/2019 04/17/2017 [...] Impression: It is the impression of this pediatric social worker that Juvenal Garvin has several positive factors [...] advised of safety concerns regarding immunosuppressants. Plan: gospel worker to provide supportive services as needed. Patient appears to be a reasonable candidate for transplant from a psychosocial perspective. -Post transplant arrangement forms are needed prior to being listed. Psychiatric Consult Recommended: No Transplant Jewel Diameter Gauger: Radha Roper LCSW RD:05/14/2020 BMI= 40.0, Class [...] Comments Blood Pressure 140/60 07/13/2020 1:30 PM GLUE CLAMP OPERATOR Pulse 65 07/13/2020 1:30 PM GLUE CLAMP OPERATOR Temperature 36.1 C (97 F) 07/13/2020 1:30 PM GLUE CLAMP OPERATOR Respiratory Rate 20 07/13/2020 1:30 PM GLUE CLAMP OPERATOR Oxygen Saturation 95% 07/13/2020 1:30 PM GLUE CLAMP OPERATOR Inhaled Oxygen Concentration - - Weight 134.3 kg (296 lb) 07/13/2020 1:30 PM GLUE CLAMP OPERATOR Height 176.5 cm (5' 9.5 ) 07/13/2020 1:30 PM GLUE CLAMP OPERATOR Body Mass Index 43.08 07/13/2020 1:30 PM GLUE CLAMP OPERATOR Plan of Treatment Health Maintenance Due Date [...] complete this topic MENINGOCOCCAL (Group B) VACCINE SHARED DECISION-MAKING Aged Out No longer eligible based on patient's age to complete this topic MENINGOCOCCAL GROUPS A/C/Y/W VACCINE Aged Out No longer eligible based [...] bianca 05/14/2020 11:49 AM CDT [facility] Comment:Neither HIV-1 p24 An tigen nor HIV-1/HIV-2 Antibodies are detected. Blood BLOOD SPECIMEN / Unknown Lab Venipuncture / Unknown 05/14/2020 10:18 AM CDT 05/14/2020 10:57 AM CDT Glenny Martin MD LAB - HEMATOLOG Y ORDERABLES [facility] [address] [place] [id number] [place] [address], [facility] [phone] * (ABNORMAL) COMPREHENSIVE METABOLIC PANEL (05/14/2020 10:18 AM [facility]) BUN 65(H) 7 - 26 mg/dL 05/14/2020 11:41 AM [facility] Creatinine 5.6(H) 0.6 - 1.2 mg/dL 05/14/2020 11:41 AM [facility] Sodium 142 136 - 145 mmol/L 05/14/2020 11:41 AM [facility] Potassium 3.7 3.5 - 4.5 mmol/L 05/14/2020 11:41 AM [facility] Chloride 101 98 - 107 mmol/L 05/14/2020 11:41 AM [facility] CO2 28 22 - 29 mmol/L 05/14/2020 11:41 AM [facility] Glucose 162(H) 70 - 115 mg/dL 05/14/2020 11:41 AM [facility] Calcium 9.0 8.4 - 10.2 mg/dL 05/14/2020 11:41 AM [facility] Protein Total 6.9 6.0 - 8.3 g/dL 05/14/2020 11:41 AM [facility] Albumin 3.7 3.4 - 5.0 g/dL 05/14/2020 11:41 AM [facility] Bilirubin Total 0.7 0.2 - 1.2 mg/dL 05/14/2020 11:41 AM [facility] Alkaline Phosphatase 140 40 - 150 Units/L 05/14/2020 11:41 AM [facility] ALT 43 0 - 55 Units/L 05/14/2020 11:41 AM [facility] AST 29 5 - 34 Units/L 05/14/2020 11:41 AM [facility] Anion Gap 17 8 - 18 05/14/2020 11:41 AM [facility] BUN/Creatinine Ratio 12 7 - 23 05/14/2020 11:41 AM [facility] Osmolality Calculated 316(H) 270 - 300 mOsm/kg 05/14/2020 11:41 AM [facility] Albumin/Globulin Ratio 1.2 1.1 - 2.3 05/14/2020 11:41 AM CDT [facility] eGFR 11(L) >60 mL/min/1.7 3 m2 05/14/2020 11:41 AM CDT [facility] Blood BLOOD SPECIMEN / Unknown Lab Venipuncture / Unknown 05/14/2020 10:18 AM CDT 05/14/2020 10:55 AM CDT Glneny Martin MD LAB - CHEMISTRY ORDERABLES [facility] [address] [place] [address], [place] [phone] * HEPATITIS C ANTIBODY (05/14/2020 10:18 AM [...] Glenny Martin MD LAB - CHEMISTRY ORDERABLES [address] [address], [place] [phone] from Last 3 Months or Most Recently Relevant to Health Maintenance Insurance Payer Benefit Plan / Group Subscriber ID Effective Dates Phone Address Type AETNA MEDICARE ADV AETNA MEDICARE ADV HMO/PPO/PFFS [id number] Effective for all dates [address] [place] [address] Medicare-[facility] MEDICAID [facility] MEDICAID [facility] Effective for all dates [address] [place] [address] Medicaid AETNA MEDICARE ADV AETNA MEDICARE ADV HMO/PPO/PFFS [id number] Effective for all dates [address] [place] [address] [place] MEDICAID [facility] MEDICAID [facility] Effective for all dates [address] [place] [address] Medicaid AETNA MEDICARE ADV AETNA MEDICARE ADV HMO/PPO/PFFS [id number] Effective for all dates [address] [place] [address] [place] n[place] Care MEDICAID [facility] MEDICAID [facility] Effective for all dates [address] [place] [address] Medicaid MEDICARE S MEDICARE PART B [id number] 08/21/2019-Pres ent [address] [address] [place] [address] Medicare MEDICAID - OUT OF [facility] MEDICAID - [place] PUBLIC A[place] [id number] 08/21/2019-Pres ent [address] [address] [place] [address] Medicaid MEDICARE MEDICARE PART A AND B [id number] 08/21/2019-Pres ent [address] [place] [address] Medicare MEDICAID - [place] [id number] Effective for all dates [address] [address] [place] [address] Medicaid [place] Advance Directives * Full Code (Latest Code Status on File) Date Activated Date Inactivated Comments 11/22/2018 9:24 AM 11/23/2018 7:55 PM Care Teams Corporate Fitness Program Coordinator Relationship Specialty Start Date End Date Aditya Castro Update Information PCP - General 03/06/19
--- OUTSIDE RECORDS SUMMARY | 2024-11-19 13:29 | XMS_ITS | Encounter Summary ---
Author Organization [facility] Address [address] [address] Phone Care Team Providers Care Search Marketing Coordinator Name Role Phone Unavailable Primary Care Provider Unavailabl e Reason for Visit * Reason Comments Med Refill Encounter Details Date Type Department Care Team (Late st Contact Info) Description 07/04/2019 Refill [facility] [address] [address] Leandro Reyes MD [address] [address] Social History Tobacco Use Types [...]
--- OUTSIDE RECORDS SUMMARY | 2024-11-19 13:29 | XMS_ITS | Clinical Summary ---
Author Organization [facility] Address [address] [place] [address] Care Team Providers Care Product Assurance Engineer Name Role Phone Aditya Castro MD Primary Care Provider [phone] Alondra Lambert RN Unavailable [phone] Shannon Brock MD, Hamlet P. Unavailable [phone] Leandro Reyes MD Unavailable [phone] Allergies Active Allergy Reactions Criticality Noted Date [...] PUMP: Continue Omnipod 5 insulin pump with [employer] G6 CGM at home settings: TIME BASAL [...] 1 tablet (25 mcg total) by mouth radiologic technology program director before breakfast 30 tablet 1 11/04/19 24 [...] mg SL tablet 12/28/19 18 Active peg 677-ljyzuzldllrg-yn ycerin (ARTIFICAL TEARS) 1-0.2-0.2 % ophthalmic solution 1 drop 4 (four) times a day 07/07/20 22 Active potassium chloride ER 20 mEq CR tablet Active Active Problems Problem Noted Date Diagnosed Date End stage renal disease 07/29/2024 Nonrheumatic aortic valve stenosis 11/22/2023 Status post aortic valve replacement 11/22/2023 Status post coronary artery bypass grafting 10/2023 CAD in [place] artery 10/13/2023 Anemia 06/22/2022 Assessment & Plan (06/29/2022 10:12 AM RESAW MACHINE OPERATOR): Stable, likely 2/2 anemia from [...] 06/22/2022 Assessment & Plan (06/29/2022 10:12 AM RESAW MACHINE OPERATOR): - Renal consulted, s/p CRRT in the ICU now back on PD. Tolerated well and nephrology following - Trialysis catheter removed - Continue vitamins for renal bone mineral disease. Assessment & Plan (06/28/2022 3:29 PM RESAW MACHINE OPERATOR): - Renal consulted, s/p CRRT [...] 06/22/2022 Assessment & Plan (06/29/2022 10:12 AM RESAW MACHINE OPERATOR): C/b cardiogenic shock requiring impella in the setting of cath and AHRF 2/2 pulmonary edema, now resolved. TTE demonstrating recovered EF 65% with grade I diastolic dysfunction. - metop as above - continue low dose losartan 12.5mg daily, ok per nephro. Tolerating well - volume management per PD Assessment & Plan (06/28/2022 3:29 PM RESAW MACHINE OPERATOR): C/b cardiogenic shock requiring impella [...] 06/22/2022 Assessment & Plan (06/29/2022 10:12 AM RESAW MACHINE OPERATOR): Converted to NSR overnight on 06/24. CHADsVASc of 4 not on anticoagulation prior to admission. - cardiology consulted - recommended ongoing rate control - holding off on a/c with high risk for bleeding while on DAPT - reduced metop to 25mg BID in the setting of hypotension, HR 70s NSR Assessment & Plan (06/28/2022 3:30 PM RESAW MACHINE OPERATOR): Converted to NSR overnight on [...] 08/22/2021 Assessment & Plan (06/29/2022 10:11 AM RESAW MACHINE OPERATOR): With recurrent chest pain post-cath. [...] today Assessment & Plan (06/28/2022 3:30 PM RESAW MACHINE OPERATOR): With recurrent chest pain post-cath. [...] 06/22/2022 Assessment & Plan (06/29/2022 10:11 AM RESAW MACHINE OPERATOR): Secondary to NSTEMI, s/p Impella since removed on 06/10. Resolved. Assessment & Plan (06/23/2022 4:55 PM CDT): Secondary to NSTEMI, s/p Impella since removed on 06/10. Resolved. Assessment & Plan (06/22/2022 8:22 PM CDT): -Secondary to NSTEMI, s/p Impella since removed on 06/10. Acute hypoxemic respiratory failure 06/09/2022 Assessment & Plan (06/29/2022 10:12 AM RESAW MACHINE OPERATOR): Secondary to ACS and flash [...] (06/10/2022): Added automatically from request for surgery [id number] Abnormal cardiovascular stress test 12/29/2020 Overview (12/29/2020): Added automatically from request for surgery [id number] 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n ative artery of [place] heart with stable angina pectoris ([facility]) 05/23/2017 History of coronary artery stent [...] 01/18/2013 Assessment & Plan (06/29/2022 10:12 AM RESAW MACHINE OPERATOR): A1c well controlled on admission. [...] session Assessment & Plan (06/28/2022 3:28 PM RESAW MACHINE OPERATOR): A1c well controlled on admission. [...] Encounters Date Type Department Care Team Description 11/06/2024 Documentation [facility] [address] Mailstop [id number] [place] [address] Melany Kelly Appointment/Schedules 11/05/2024 Telephone [facility] [address] Mailstop [id number] [place] [address] Alondra Lambert RN 09/12/2024 Orders Only [facility] Cardiology [address] [place] [address] Lalit Machuca MD from Last 3 Months Immunizations Immunization Administration [...] from doctor or pharmacy Never 12/01/2023 [facility] Utilities Answer Date Recorded In the past 12 months has e [place], oil, or water [employer] threatened to shut off services in your home? No 08/01/2024 Social Connection and Isolation Panel [NHANES] A nswer Date Recorded In a typical week, how many times do you talk on the phone with family, friends, or neighbors? Twice a week 08/01/2024 How often do you get together with friends or re latives? Once a week 08/01/2024 How often do you attend islam or tenriism serv ices? Never 08/01/2024 Do [...] any time in the past 12 m [facility], were you homeless or living in a snf (including now)? No 08/01/2024 Personal Safety Answer Date Recorded Have you ever been in or are you currently in a harmful physical or emotional relationship or is someone making you feel afraid or unsafe? 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 Male 3:42 AM RESAW MACHINE OPERATOR Gender Identity Not on file Sexual Orientation Not on file Obstetrics History Last Filed Vital Signs Vital Sign Reading Time Taken Comments Blood Pressure 122/75 07/29/2024 1:00 PM RESAW MACHINE OPERATOR Pulse 116 07/29/2024 1:00 PM RESAW MACHINE OPERATOR Temperature 36.8 C (98.2 F) 07/29/2024 1:00 PM RESAW MACHINE OPERATOR Respiratory Rate 16 12/01/2023 11:1 3 AM CDT Oxygen Saturation 96% 12/01/2023 11: 13 AM CDT Inhaled Oxygen Concentration - - Weight 121.2 kg (267 lb 1.6 oz) 07/29/2024 1:00 PM RESAW MACHINE OPERATOR Height 177.8 cm (5' 10 ) 07/29/2024 1:00 PM RESAW MACHINE OPERATOR Body Mass Index 38.32 07/29/2024 1:00 PM RESAW MACHINE OPERATOR Plan of Treatment Health Maintenance Due [...] 10/26/2024 10/27/2023, 03/21/2017 Hemoglobin A1C 01/27/2025 07/29/2024, 2 01/2024, 06/04/2022, Additional history exists Pneumococcal vaccine <65 [...] 03/23/2017, 03/26/2015 Medical Devices Implanted Type Area Oil Recovery Unit Operator Device Identifier Shelf Expiration Date Model / Serial / Lot Kyle Vascular Device Clsr Perclose Prostyle Sut-Mediatd Closure-Repair Sys 69639-65 - [id number] Implanted:Qty: 1 on 06/10/2022 by Champ Osborne MD PhD at [facility] Other - see comments Right: Femoral [employer] V[employer] 01/19/2024 [id number] / / [id number] [employer] Mary Synergy Xd Monorail 2.5mm 48mm 144cm Delivery System 1 Access [id number] - [id number] Implanted:Qty: 1 on 06/07/2022 by Champ Osborne MD PhD at [facility] Stent [employer] Mary 10/27/2023 [id number] / / [id number] [employer] Mary Synergy Xd Monorail 3mm 24mm 144cm Delivery System 1 Access Port [id number] - [id number] Implanted:Qty: 1 on 06/07/2022 by Champ Osborne MD PhD at [facility] Stent [employer] Mary 07/28/2023 [id number] / / [id number] [employer] Mary Synergy Xd Monorail 2.5mm 12mm 144cm Delivery System 1 Access [id number] - [id number] - [id number] Implanted:Qty: 1 on 06/07/2022 by Champ Osborne MD PhD at [facility] Stent [employer] Mary 05/03/2023 [id number] / [id number] / [id number] Dai Mary [id number] Device Closure Angio-Seal Vip [place]k-Plus Polyglyd L70 Cm Od6 Fr Odsec.035 In Vascular - [id number] Implanted:Qty: 1 on 01/21/2021 by Hamlet Ortega Jr., MD at [facility] Left: Groin [employer] Mary [id number] / / Kyle Vascular Device Clsr Perclose Prostyle Sut-Mediatd Closure-Repair Sys 40799-86 - [id number] Implanted:Qty: 1 on 06/07/2022 by Champ Osborne MD PhD at [facility] Kyle Vascular 01/19/2024 [id number] / [id number] Kyle Vascular Device Clsr Perclose Prostyle Sut-Mediatd Closure-Repair Sys 16426-78 - [id number] Implanted:Qty: 1 on 06/07/2022 by Champ Osborne MD PhD at [facility] Kyle Vascular 11/19/2023 14829-79 / [id number] Bard Access Systems Power-Trialysis 13fr 30cm 3 Lumen Kink Resistance Symmetric Tip [id number] - [id number] Implanted:Qty: 1 on 06/07/2022 by Champ Osborne MD PhD at [facility] Right: Jugular Ramirez [place] 07/20/2024 [id number] / / [id number] [employer] Inc Impella Cp Percutaneous Left Ventricular Assist Device 7139-8569 - [id number] Implanted:Qty: 1 on 06/07/2022 by Champ Osborne MD PhD at [facility] Left: Ventricle [employer] Inc [id number] / / Bard Access Systems Power-Trialysis 13fr 20cm 3 Lumen Short Term Dialysis Straight [id number] - [id number] Implanted:Qty: 1 on 06/18/2022 at [facility] Ramirez [place] 07/20/2024 [id number] / / [id number] Rl Biomet Inc Screw Bone Slf Drl Full Thread Locking 3.5x14mm Ti 100.035.14 - [id number] Implanted:Qty: 6 on 10/17/2023 by Lorne Mcnulty MD at [facility] N/A: Sternum Rl [employer] Inc 100.035.1 4 / / Rl Biomet Inc Plate Bone Low Profile 6 Hole H Shape Sternum Ti 115.102.06 - [id number] Implanted:Qty: 2 on 10/17/2023 by Lorne Mcnulty MD at [facility] N/A: Sternum [employer]l [employer] 115.102.0 6 / / Rl [employer] Inc Plate Bone Low Profile 6 Hole O Shape Sternum Ti 115.104.06 - [id number] Implanted:Qty: 1 on 10/17/2023 by Lorne Mcnulty MD at [facility] N/A: Sternum [employer]l [employer] 115.104.0 6 / / On-X Intrnl Valve Coronary Aortic Mechanical On X 25mm Onxane-25 - [id number] - [id number] Implanted:Qty: 1 on 10/17/2023 by Lorne Mcnulty MD at [facility] N/A: Heart On-X Intrnl 01/22/2028 ONXANE-25 / [id number] / Rl [employer] Inc Screw Bone Slf Drl Full Thread Locking 3.5x18mm Ti 100.035.18 - [id number] Implanted:Qty: 12 on 10/17/2023 by Lorne Mcnulty MD at [facility] N/A: Sternum Rl [employer] 100.035.1 8 / / Explanted Type Area Oil Recovery Unit Operator Device Identifier Shelf Expiration Date Model / Serial / Lot Bard Peripheral Vascular Bard .25x.25in [place] Thk1.65mm Square [place] Cardiovascular Ptfe 104043 - [id number] Explanted:Qty: 1 on 10/17/2023 by Lorne Mcnulty MD at [facility] N/A: Heart Bard Peripheral Vascular 05/18/2026 [id number] / / Procedures Procedure Name Priority Date/Time Associated Diagnosis Comments CARDIOLOGY DOCUMENT SCAN Routine 09/08/2024 11:26 AM RESAW MACHINE OPERATOR CARDIOLOGY DOCUMENT SCAN Routine 09/07/2024 11:24 AM RESAW MACHINE OPERATOR CARDIOLOGY DOCUMENT SCAN Routine 09/05/2024 11:06 AM RESAW MACHINE OPERATOR HEPATITIS C ANTIBODY Routine 07/29/2024 11:01 AM RESAW MACHINE OPERATOR End stage renal disease (HCC) EGFR Routine 07/29/2024 11:01 AM RESAW MACHINE OPERATOR End stage renal disease (HCC) HEMOGLOBIN A1C Routine 07/29/2024 11:01 AM RESAW MACHINE OPERATOR End stage renal disease (HCC) LIPID PANEL Routine 07/29/2024 11:01 AM RESAW MACHINE OPERATOR End stage renal disease (HCC) PSA SCREEN Routine 07/29/2024 11:01 AM RESAW MACHINE OPERATOR End stage renal disease (HCC) TSH Routine 10/27/2023 2:30 AM RESAW MACHINE OPERATOR from Last 3 Months or Most Recently Relevant to Health Maintenance Results * Cardiology Document Scan (09/08/2024 11:26 AM RESAW MACHINE OPERATOR) Anatomical Region Laterality Modality Other Juan Christianson MD CV CARDIAC SERVICES PROCEDU RES Final Result * Cardiology Document Scan (09/07/2024 11:24 AM RESAW MACHINE OPERATOR) Anatomical Region Laterality Modality Other us Juan Christianson MD CV CARDIAC SERVICES PROCEDU RES Final Result * Cardiology Document Scan (09/05/2024 11:06 AM RESAW MACHINE OPERATOR) Anatomical Region Laterality Modality Other Lalit Machuca MD CV CARDIAC SERVICES PROCEDURES F inal Result * (ABNORMAL) eGFR (07/29/2024 11:01 AM RESAW MACHINE OPERATOR) eGFR 7(L) >=60 mL/min/1. 73 m2 [...] reviewed 2021. Blood 07/29/2024 11:0 1 AM RESAW MACHINE OPERATOR 07/29/2024 11:33 AM RESAW MACHINE OPERATOR Jossie King MD LAB BLOOD ORDERABL ES Final Result Performing Organization Address [facility] Co de Phone Number [facility] [employer] [place] [address] * PSA screen (07/29/2024 11:01 AM RESAW MACHINE OPERATOR) PSA-Total 0.55 <=3.90 ng/mL Comment: [...] revised 21. Blood 07/29/2024 11:0 1 AM RESAW MACHINE OPERATOR 07/29/2024 11:33 AM RESAW MACHINE OPERATOR Narrative [facility] - 07/29/2024 12:39 PM RESAW MACHINE OPERATOR This lab is being obtained as part of a Kidney transplant evaluation, is time sensitive, and should only be drawn during the evaluation visit at [address] Lab[address] Jossie King MD LAB BLOOD ORDERABL ES Final Result Performing Organization Address [facility] de Phone Number [facility] Department [place] [address] * Hepatitis C antibody Blood (07/29/2024 11:01 AM RESAW MACHINE OPERATOR) Hep C Ab Nonreactive Nonreactive Comment:Antibodies to HCV no t detected. Does NOT exclude the possibility of recent exposure to HCV. Current interpretive data was last revised on 22 Blood 07/29/2024 11:0 1 AM RESAW MACHINE OPERATOR 07/29/2024 11:32 AM RESAW MACHINE OPERATOR Narrative [facility] - 07/29/2024 12:47 PM RESAW MACHINE OPERATOR This lab is being obtained as part of a Kidney transplant evaluation, is time sensitive, and should only be drawn during the evaluation visit at [address] Lab[address] Jossie King MD LAB MICROBIOLOGY - GENERAL ORDERABLES Final Result Performing Organization Address [facility] de Phone Number [facility] Department [place] [address] * (ABNORMAL) Hemoglobin A1c (07/29/2024 11:01 AM RESAW MACHINE OPERATOR) Hgb A1C 9.0(H) 4.0 - 5.6 % Estimated Average Glucose 212 mg/dL [facility] Comment: The ADA recommends reporting an estimated Average Glucose (eAG) with all Hemoglobin A1c results using the equation derived from a study of 507 normal and diabetic adults. Minority populations were underrepresented and children were not included. (Diabetes Care 2020; 43(S1): S66-S76). The eAG is not equivalent to a fasting glucose. Blood 07/29/2024 11:0 1 AM RESAW MACHINE OPERATOR 07/29/2024 11:34 AM RESAW MACHINE OPERATOR Narrative [facility] - 07/29/2024 11:53 AM RESAW MACHINE OPERATOR This lab is being obtained as part of a Kidney transplant evaluation, is time sensitive, and should only be drawn during the evaluation visit at [address] Lab[address] Jossie King MD LAB BLOOD ORDERABL ES Final Result Performing Organization Address [facility] de Phone Number [facility] Department [place] [address] * (ABNORMAL) Lipid panel (07/29/2024 11:01 AM RESAW MACHINE OPERATOR) Cholesterol 114 30 - 199 [...] revised on 2018. Triglycerides 66 <=149 mg/dL [facility] Comment: Interpretive [...] revised on 2018. HDL 29(L) >=40 mg/dL [facility] Comment: Interpretive Data Ages < or [...] on 2018. LDL, calculated 71 <=129 mg/dL [facility] Comment: Interpretive Data Ages < or [...] revised on 2024. Non-HDL Cholesterol 85 mg/dL [facility] Comment: Interpretive Data [...] last revised on 2018. Chol/HDL ratio 4 [facility] Blood 07/29/2024 11:0 1 AM RESAW MACHINE OPERATOR 07/29/2024 11:33 AM RESAW MACHINE OPERATOR Narrative [facility] - 07/29/2024 12:10 PM RESAW MACHINE OPERATOR This lab is being obtained as part of a Kidney transplant evaluation, is time sensitive, and should only be drawn during the evaluation visit at [facility] Lab. us Jossie King MD LAB BLOOD ORDERABL ES Final Result Performing Organization Address City/[facility]/ZIP Co de Phone Number [facility] Department [place] [address] * (ABNORMAL) TSH (10/27/2023 2:30 AM RESAW MACHINE OPERATOR) Thyroid Stimulating Hormone 13.20(H) 0.30 - 4.20 mcIUnit/mL Blood 10/27/2023 2:30 AM RESAW MACHINE OPERATOR 10/27/2023 2:42 AM RESAW MACHINE OPERATOR us Lorne Mcnulty MD LAB BLOOD ORDERABLES Final Result [facility] [address] [place] [address] from Last 3 Months or Most Recently Relevant to Health Maintenance Insurance IDPA [facility] MEDICARE ADVANTAGE [facility] Address: [address] [address] [place] [address] IDPA [facility] MEDICARE ADVANTAGE TRANSPLANT [employer] MEDICARE RISK IDPA TRANSPLANT [employer] MEDICARE RISK IDPA Advance Directives For more information, please contact: [phone] * Full Code (Latest Code Status on File) Date Activated Date Inactivated Comments 10/13/2023 11:32 PM 11/03/2023 11:42 PM * Full Code Date Activated Date Inactivated Comments 06/05/2022 6:17 AM 06/29/2022 6:20 PM * Full Code Date Activated Date Inactivated Comments 06/05/2022 4:43 AM 06/05/2022 4:43 AM * Full Code Date Activated Date Inactivated Comments 06/04/2022 9:55 PM 06/05/2022 4:43 AM Care Teams Product Assurance Engineer Relationship Specialty Start Date End Date Aditya Castro MD [address] [place] [address] PCP - General 10/17/19 Alondra Lambert, RN [address] [facility] [address] [place] [address] Budget Technician 03/06/24 Hamlet Ortega Jr., MD [address] [place] [address] [phone] Consulting Physician Cardiovascular Disease 05/10/24 Leandro Reyes MD [address] [place] [phone] Consulting Physician Nephrology 07/30/24
--- OUTSIDE RECORDS SUMMARY | 2024-11-19 13:29 | XMS_ITS | Referral Summary ---
Author Organization [facility] Address [address] [place] [address] Care Team Providers Care Senior Catering Sales Manager Name Role Phone Aditya Castro MD Primary Care Provider [phone] Alondra Lambert RN Unavailable [phone] Shannon Brock MD, Hamlet Gordon Unavailable [phone] Leandro Reyes MD Unavailable [phone] Encounters Date Type Department Care Team Description 11/06/2024 Documentation [facility] [address] [facility] [address] [phone] [place] [address] Melany Kelly Appointment/Schedules 11/05/2024 Telephone [facility] Trans[facility] [address] [facility] [address] [phone] [place] [address] Alondra Lambert, LUAN 09/12/2024 Orders Only [facility] [address] [place] [address] Lalit Machuca MD from Last 3 Months Allergies Active Allergy [...] 1 tablet (25 mcg total) by mouth voice and data technician before breakfast 30 tablet 1 11/04/19 24 [...] mg SL tablet 12/28/19 18 Active peg 718-ajjqmqqzyndm-sm ycerin (ARTIFICAL TEARS) 1-0.2-0.2 % ophthalmic solution 1 drop 4 (four) times a day 07/07/20 22 Active potassium chloride ER 20 mEq CR tablet Active Active Problems Problem Noted Date Diagnosed Date End stage renal disease 07/29/2024 Nonrheumatic aortic valve stenosis 11/22/2023 Status post aortic valve replacement 11/22/2023 Status post coronary artery bypass grafting 10/2023 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 Tolerated well and nephrology following - Trialysis catheter removed - Continue vitamins for renal bone mineral disease. Assessment & Plan (06/28/2022 3:29 PM ASSISTANT CLINICAL NURSE MANAGER): - Renal consulted, s/p CRRT in the [...] 06/22/2022 Assessment & Plan (06/29/2022 10:12 AM ASSISTANT CLINICAL NURSE MANAGER): C/b cardiogenic shock requiring impella in the setting of cath and AHRF 2/2 pulmonary edema, now resolved. TTE demonstrating recovered EF 65% with grade I diastolic dysfunction. - metop as above - continue low dose losartan 12.5mg daily, ok per nephro. Tolerating well - volume management per PD Assessment & Plan (06/28/2022 3:29 PM ASSISTANT CLINICAL NURSE MANAGER): C/b cardiogenic shock requiring impella in the [...] 06/22/2022 Assessment & Plan (06/29/2022 10:12 AM ASSISTANT CLINICAL NURSE MANAGER): Converted to NSR overnight on 06/24. CHADsVASc of 4 not on anticoagulation prior to admission. - cardiology consulted - recommended ongoing rate control - holding off on a/c with high risk for bleeding while on DAPT - reduced metop to 25mg BID in the setting of hypotension, HR 70s NSR Assessment & Plan (06/28/2022 3:30 PM ASSISTANT CLINICAL NURSE MANAGER): Converted to NSR overnight on 06/24. CHADsVASc [...] 08/22/2021 Assessment & Plan (06/29/2022 10:11 AM ASSISTANT CLINICAL NURSE MANAGER): With recurrent chest pain post-cath. He has [...] today Assessment & Plan (06/28/2022 3:30 PM ASSISTANT CLINICAL NURSE MANAGER): With recurrent chest pain post-cath. He has [...] 06/22/2022 Assessment & Plan (06/29/2022 10:11 AM ASSISTANT CLINICAL NURSE MANAGER): Secondary to NSTEMI, s/p Impella since removed on 06/10. Resolved. Assessment & Plan (06/23/2022 4:55 PM CDT): Secondary to NSTEMI, s/p Impella since removed on 06/10. Resolved. Assessment & Plan (06/22/2022 8:22 PM CDT): -Secondary to NSTEMI, s/p Impella since removed on 06/10. 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 He uses [...] session Assessment & Plan (06/28/2022 3:28 PM ASSISTANT CLINICAL NURSE MANAGER): A1c well controlled on admission. He uses [...] materials from doctor or pharmacy Never 12/01/2023 [facility] Utilities Answer Date Recorded In the [...] week 08/01/2024 How often do you attend confucianism or islam serv ices? Never 08/01/2024 Do you belong [...] in a retirement (including now)? No 10/16/2023 Housing Stability Vital [...] were you homeless or living in a retirement (including now)? No 08/01/2024 Personal Safety Answer Date Recorded Have you ever been in or are you currently in a harmful physical or emotional relationship or is someone making you feel afraid or unsafe? 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 Male 3:42 AM ASSISTANT CLINICAL NURSE MANAGER Gender Identity Not on file Sexual Orientation Not on file Last Filed Vital Signs Vital Sign Reading Time Taken Comments Blood Pressure 122/75 07/29/2024 1:00 PM ASSISTANT CLINICAL NURSE MANAGER Pulse 116 07/29/2024 1:00 PM ASSISTANT CLINICAL NURSE MANAGER Temperature 36.8 C (98.2 F) 07/29/2024 1:00 PM ASSISTANT CLINICAL NURSE MANAGER Respiratory Rate 16 12/01/2023 11:1 3 AM CDT Oxygen Saturation 96% 12/01/2023 11: 13 AM CDT Inhaled Oxygen Concentration - - Weight 121.2 kg (267 lb 1.6 oz) 07/29/2024 1:00 PM ASSISTANT CLINICAL NURSE MANAGER Height 177.8 cm (5' 10 ) 07/29/2024 1:00 PM ASSISTANT CLINICAL NURSE MANAGER Body Mass Index 38.32 07/29/2024 1:00 PM ASSISTANT CLINICAL NURSE MANAGER Plan of Treatment Not on file Medical Devices Implanted Type Area Leather Coverer Device Identifier Shelf Expiration Date Model / Serial / Lot Kyle Vascular Device Clsr Perclose Prostyle Sut-Mediatd Closure-Repair Sys 81423-86 - [id number] Implanted:Qty: 1 on 06/10/2022 by Champ Osborne MD PhD at [facility] Other - see comments Right: Femoral Kyle Vascular 01/19/202473886-08 [employer] Mary Synergy Xd Monorail 2.5mm 48mm 144cm Delivery System 1 Access [id number] - [id number] Implanted:Qty: 1 on 06/07/2022 by Champ Osborne MD PhD at [facility] Stent [employer] Mary 10/27/2023 [id number] / / [id number] [employer] Mary Synergy Xd Monorail 3mm 24mm 144cm Delivery System 1 Access Port [id number] - [id number] Implanted:Qty: 1 on 06/07/2022 by Champ Osborne MD PhD at [facility] Stent [employer] Mary 07/28/2023 [id number] / / [id number] [employer] Mary Synergy Xd Monorail 2.5mm 12mm 144cm Delivery System 1 Access [id number] - [id number] - [id number] Implanted:Qty: 1 on 06/07/2022 by Champ Osborne MD PhD at [facility] Stent [employer] Mary 05/03/2023 [id number] / [id number] / [id number] Daig Mary [id number] Device Closure Angio-Seal Vip Bondek-Plus Polyglyd L70 Cm Od6 Fr Odsec.035 In Vascular - [id number] Implanted:Qty: 1 on 01/21/2021 by Hamlet Ortega Jr., MD at [facility] Left: Groin [employer] Mary [id number] / / Kyle Vascular Device Clsr Perclose Prostyle Sut-Mediatd Closure-Repair Sys 57562-36 - [id number] Implanted:Qty: 1 on 06/07/2022 by Champ Osborne MD PhD at [facility] Kyle Vascular 01/19/2024 [id number] Kyle Vascular Device Clsr Perclose Prostyle Sut-Mediatd Closure-Repair Sys 21164-34 - [id number] Implanted:Qty: 1 on 06/07/2022 by Champ Osborne MD PhD at [facility] Kyle Vascular 11/19/2023 [id number] / / [id number] Bard Access Systems Power-Trialysis 13fr 30cm 3 Lumen Kink Resistance Symmetric Tip [id number] - [id number] Implanted:Qty: 1 on 06/07/2022 by Champ Osborne MD PhD at [facility] Right: Jugular Ramirez Wooldridge 07/20/2024 [id number] / / [id number] [employer] Impella Cp Percutaneous Left Ventricular Assist Device 0982-7160 - [id number] Implanted:Qty: 1 on 06/07/2022 by Champ Osborne MD PhD at [facility] Left: Ventricle [employer] [id number] / / Bard Access Systems Power-Trialysis 13fr 20cm 3 Lumen Short Term Dialysis Straight [id number] - [id number] Implanted:Qty: 1 on 06/18/2022 at [facility] Ramirez Wooldridge 07/20/2024 [id number] / / [id number] Rl Biomet Inc Screw Bone Slf Drl Full Thread Locking 3.5x14mm Ti 100.035.14 - [id number] Implanted:Qty: 6 on 10/17/2023 by Lorne Mcnulty MD at [facility] N/A: Sternum [employer]l [employer] Inc 100.035.1 4 / / Rl [employer] Inc Plate Bone Low Profile 6 Hole H Shape Sternum Ti 115.102.06 - [id number] Implanted:Qty: 2 on 10/17/2023 by Lorne Mcnulty MD at [facility] N/A: Sternum [employer] 115.102.0 6 / / Rl [employer] Plate Bone Low Profile 6 Hole O Shape Sternum Ti 115.104.06 - [id number] Implanted:Qty: 1 on 10/17/2023 by Lorne Mcnulty MD at [facility] N/A: Sternum [employer] 115.104.0 6 / / On-X Intrnl Valve Coronary Aortic Mechanical On X 25mm Onxane-25 - [id number] - [id number] Implanted:Qty: 1 on 10/17/2023 by Lorne Mcnulty MD at [facility] N/A: Heart On-X Intrnl 01/22/2028 ONXANE-25 / [id number] / Rl [employer] Inc Screw Bone Slf Drl Full Thread Locking 3.5x18mm Ti 100.035.18 - [id number] Implanted:Qty: 12 on 10/17/2023 by Lorne Mcnulty MD at [facility] N/A: Sternum [employer]l [employer] Inc 100.035.1 8 / / Explanted Type Area Leather Coverer Device Identifier Shelf Expiration Date Model / Serial / Lot Bard Peripheral Vascular Bard .25x.25in [place] Thk1.65mm Square Pledget Cardiovascular Ptfe [id number] - [id number] Explanted:Qty: 1 on 10/17/2023 by Lorne Mcnulty MD at [facility] N/A: Heart Bard Peripheral Vascular 05/18/2026 [id number] / / Procedures Procedure Name Priority Date/Time Associated Diagnosis Comments CARDIOLOGY DOCUMENT SCAN Routine 09/08/2024 11:26 AM ASSISTANT CLINICAL NURSE MANAGER CARDIOLOGY DOCUMENT SCAN Routine 09/07/2024 11:24 AM ASSISTANT CLINICAL NURSE MANAGER CARDIOLOGY DOCUMENT SCAN Routine 09/05/2024 11:06 AM ASSISTANT CLINICAL NURSE MANAGER HEPATITIS C ANTIBODY Routine 07/29/2024 11:01 AM ASSISTANT CLINICAL NURSE MANAGER End stage renal disease (HCC) EGFR Routine 07/29/2024 11:01 AM ASSISTANT CLINICAL NURSE MANAGER End stage renal disease (HCC) HEMOGLOBIN A1C Routine 07/29/2024 11:01 AM ASSISTANT CLINICAL NURSE MANAGER End stage renal disease (HCC) LIPID PANEL Routine 07/29/2024 11:01 AM ASSISTANT CLINICAL NURSE MANAGER End stage renal disease (HCC) PSA SCREEN Routine 07/29/2024 11:01 AM ASSISTANT CLINICAL NURSE MANAGER End stage renal disease (HCC) TSH Routine 10/27/2023 2:30 AM ASSISTANT CLINICAL NURSE MANAGER from Last 3 Months or Most Recently Relevant to Health Maintenance Results * Cardiology Document Scan (09/08/2024 11:26 AM ASSISTANT CLINICAL NURSE MANAGER) Anatomical Region Laterality Modality Other Juan Christianson MD [facility] PROCEDU RES Final Result * Cardiology Document Scan (09/07/2024 11:24 AM ASSISTANT CLINICAL NURSE MANAGER) Anatomical Region Laterality Modality Other Juan Christianson MD CV CARDIAC SERVICES PROCEDU RES Final Result * Cardiology Document Scan (09/05/2024 11:06 AM ASSISTANT CLINICAL NURSE MANAGER) Anatomical Region Laterality Modality Other Lalit Machuca MD CV CARDIAC SERVICES PROCEDURES F inal Result * (ABNORMAL) eGFR (07/29/2024 11:01 AM ASSISTANT CLINICAL NURSE MANAGER) eGFR 7(L) >=60 mL/min/1. 73 m2 Comment: [...] reviewed 2021. Blood 07/29/2024 11:0 1 AM ASSISTANT CLINICAL NURSE MANAGER 07/29/2024 11:33 AM ASSISTANT CLINICAL NURSE MANAGER us Jossie King MD LAB BLOOD ORDERABL ES Final Result [facility] Department [place] [address] * PSA screen (07/29/2024 11:01 AM ASSISTANT CLINICAL NURSE MANAGER) PSA-Total 0.55 <=3.90 ng/mL Comment: Interpretive Data [...] revised 21. Blood 07/29/2024 11:0 1 AM ASSISTANT CLINICAL NURSE MANAGER 07/29/2024 11:33 AM ASSISTANT CLINICAL NURSE MANAGER Narrative [facility] - 07/29/2024 12:39 PM ASSISTANT CLINICAL NURSE MANAGER This lab is being obtained as part of a Kidney transplant evaluation, is time sensitive, and should only be drawn during the evaluation visit at [address] Lab[address] Jossie King MD LAB BLOOD ORDERABL ES Final Result [facility] [address] [facility] Department [place] [address] * Hepatitis C antibody Blood (07/29/2024 11:01 AM ASSISTANT CLINICAL NURSE MANAGER) Pathologist [facility] Hep C Ab Nonreactive Nonreactive Comment:Antibodies to HCV no t detected. Does NOT exclude the possibility of recent exposure to HCV. Current interpretive data was last revised on 22 Blood 07/29/2024 11:0 1 AM ASSISTANT CLINICAL NURSE MANAGER 07/29/2024 11:32 AM ASSISTANT CLINICAL NURSE MANAGER Narrative [facility] - 07/29/2024 12:47 PM ASSISTANT CLINICAL NURSE MANAGER This lab is being obtained as part of a Kidney transplant evaluation, is time sensitive, and should only be drawn during the evaluation visit at [address] Lab[address] Jossie King MD LAB MICROBIOLOGY - GENERAL ORDERABLES Final Result Performing Organization Address City/[facility] Co de Phone Number [facility] Department [place] [address] * (ABNORMAL) Hemoglobin A1c (07/29/2024 11:01 AM ASSISTANT CLINICAL NURSE MANAGER) Hgb A1C 9.0(H) 4.0 - 5.6 % Estimated Average Glucose 212 mg/dL [facility] Comment: The ADA recommends reporting an estimated Average Glucose (eAG) with all Hemoglobin A1c results using the equation derived from a study of 507 normal and diabetic adults. Minority populations were underrepresented and children were not included. (Diabetes Care 2020; 43(S1): S66-S76). The eAG is not equivalent to a fasting glucose. Blood 07/29/2024 11:0 1 AM ASSISTANT CLINICAL NURSE MANAGER 07/29/2024 11:34 AM ASSISTANT CLINICAL NURSE MANAGER Narrative [facility] - 07/29/2024 11:53 AM ASSISTANT CLINICAL NURSE MANAGER This lab is being obtained as part of a Kidney transplant evaluation, is time sensitive, and should only be drawn during the evaluation visit at [facility] [address] Lab. Jossie King MD LAB BLOOD ORDERABL ES Final Result Performing Organization Address [facility] Co de Phone Number [facility] Department [place] [address] * (ABNORMAL) Lipid panel (07/29/2024 11:01 AM ASSISTANT CLINICAL NURSE MANAGER) [facility] Cholesterol 114 30 - 199 mg/dL Comment: [...] revised on 2018. Triglycerides 66 <=149 mg/dL [facility] Comment: [...] revised on 2018. HDL 29(L) >=40 mg/dL [facility] Comment: Interpretive [...] on 2018. LDL, calculated 71 <=129 mg/dL [facility] Comment: Interpretive [...] revised on 2024. Non-HDL Cholesterol 85 mg/dL [facility] Comment: Interpretive [...] ratio 4 [facility] Blood 07/29/2024 11:0 1 AM ASSISTANT CLINICAL NURSE MANAGER 07/29/2024 11:33 AM ASSISTANT CLINICAL NURSE MANAGER Narrative [facility] - 07/29/2024 12:10 PM ASSISTANT CLINICAL NURSE MANAGER This lab is being obtained as part of a Kidney transplant evaluation, is time sensitive, and should only be drawn during the evaluation visit at [facility] Lab. us Jossie King MD LAB BLOOD ORDERABL ES Final Result [facility] Department [place] [address] * (ABNORMAL) TSH (10/27/2023 2:30 AM ASSISTANT CLINICAL NURSE MANAGER) Thyroid Stimulating Hormone 13.20(H) 0.30 - 4.20 mcIUnit/mL Blood 10/27/2023 2:30 AM ASSISTANT CLINICAL NURSE MANAGER 10/27/2023 2:42 AM ASSISTANT CLINICAL NURSE MANAGER us Lorne Mcnulty MD LAB BLOOD ORDERABLES Final Result [facility] [address] Department [place] [address] from Last 3 Months or Most Recently Relevant to Health Maintenance Insurance [facility] MEDICARE ADVANTAGE [facility] Address: [address] [address] [place] [address] [facility] MEDICARE ADVANTAGE TRANSPLANT [employer] MED[employer]ARE RISK IDPA TRANSPLANT [employer] MED[employer] RISK IDPA Advance Directives For more information, please contact: [phone] * Full Code (Latest Code Status on File) Date Activated Date Inactivated Comments 10/13/2023 11:32 PM 11/03/2023 11:42 PM * Full Code Date Activated Date Inactivated Comments 06/05/2022 6:17 AM 06/29/2022 6:20 PM * Full Code Date Activated Date Inactivated Comments 06/05/2022 4:43 AM 06/05/2022 4:43 AM * Full Code Date Activated Date Inactivated Comments 06/04/2022 9:55 PM 06/05/2022 4:43 AM Care Teams Senior Catering Sales Manager Relationship Specialty Start Date End Date Aditya Castro MD [address] [facility] [place] [address] PCP - General 10/17/19 Alondra Lambert, RN [address] [facility] [address] [place] [address] [employer] 03/06/24 Hamlet Ortega Jr., MD [address] [place] [address] Consulting Physician Cardiovascular Disease 05/10/24 Leandro Reyes MD [address] [place] [address] Consulting Physician Nephrology 07/30/24
--- OUTSIDE RECORDS SUMMARY | 2024-11-19 13:30 | XMS_ITS | CONTINUITY OF CARE DOCUMENT ---
Author Name archana rindemian Address Unknown Organization [facility] Address [address] [facility] [address] [place] [address] Phone [phone] Care Team Providers Care Ditch Worker Name Role Phone Shannon ARNOLD, Hamlet Unavailable STEPHANIE CORREA MD Unavailable [phone] STEPHANIE CORREA MD Unavailable PROBLEMS Condition Status Date Provider Notes CABG post active Annemarie Connelly RN Valve replacement active Annemarie Connelly RN extermination supervisor anticoagulant therapy active Annemarie Connelly RN Family [...] In-person encounter Office Visit Hamlet Ortega MD [facility] - In-person encounter Office Visit Hamlet Ortega MD [facility] Atrial Fibrillation - In-person encounter Office Visit Hamlet Ortega MD [facility] Office - In-person encounter Office Visit Hamlet Ortega MD [facility] C A B G:Valve SurgeryCKD stage ESRD on dialysis GFR <15 - In-person encounter Office Visit Hamlet Ortega MD [facility] - In-person encounter Office Visit Hamlet Ortega MD [facility] Office - In-person encounter Office Visit Hamlet Ortega MD [facility] OverweightAortic insufficiency - In-person encounter Office Visit Hamlet Ortega MD [facility] - In-person encounter Office Visit Hamlet Ortega MD [facility] - In-person encounter Office Visit Hamlet Ortega MD [facility] - In-person encounter Office Visit Hamlet Ortega MD [facility] - In-person encounter Office Visit Hamlet Ortega MD [facility] - In-person encounter Office Visit Hamlet Ortega MD [facility] - In-person encounter Office Visit Hamlet Ortega MD [facility] - In-person encounter Office Visit Hamlet Ortega MD [facility] Office - In-person encounter Office Visit Hamlet Ortega MD [facility] - In-person encounter Office Visit Hamlet Ortega MD [facility] - In-person encounter Office Visit Hamlet Ortega MD [facility] - In-person encounter Office Visit Hamlet Ortega MD [facility] - In-person encounter Office Visit Hamlet Ortega MD [facility] Dizziness - In-person encounter Office Visit Hamlet Ortega MD [facility] - In-person encounter Office Visit Hamlet Ortega MD [facility] Office - In-person encounter Office Visit Hamlet Ortega MD [facility] - In-person encounter Office Visit Hamlet Ortega MD [facility] Family History of Hypertension:Coronary artery diseaseShortness [...] systolic 140 mm[Hg] Alvern kLogic blood pressure, cuff size large As nohelia Benjamin blood pressure, diastolic 82 mm[Hg] As nohelia Benjamin blood pressure, systolic 140 mm[Hg] Hussein Benjamin oxygen saturation, oximetry 93 % Aury Sourav pulse rate 120 /min Aury Sourav weight E&M 263.2 [lb_av] Aury Benjamin Body Mass Index (Ratio) 40.31 kg/m2 Michael Ortega MD blood pressure, diastolic 79 mm[Hg] [facility] blood pressure, systolic 169 mm[Hg] Molly carrillo [facility] oxygen saturation, oximetry 100 % [facility]us [facility] pulse rate 94 /min [facility] weight E&M 281 [lb_av] [facility] height E&M 70 [in_i] Lexus [facility] blood pressure, diastolic 101 mm[Hg] Chapo montaguen Major blood pressure, systolic 157 mm[Hg] Vanna garay Major oxygen saturation, oximetry 96 % [facility] pulse rate 122 /min [facility] blood pressure, cuff size regular Chapo dena Major Body Mass Index (Ratio) 38.62 kg/m2 Zoë on Major weight in kilograms E&M 122.11 kg Zoë on Major weight E&M 269.2 [lb_av] [facility] height E&M 70 [in_i] Chapoaromegan [...] /min Karley oHlly pulse rate 65 /min Karely Mkcristhian williams weight E&M 275 [lb_av] Karley [...] Pamela Nicole RN international normalized ratio (INR) 1.4 Pamela Nicole RN Normal international normalized ratio (INR) 1.9 Rayna Rodriguez RN Normal coagulation managed by Robin Villarreal RN international normalized ratio (INR) 1.7 Robin Villarreal RN Normal coagulation managed by [...] Normal coagulation managed by Pamela Nicole RN Paemla Nicole RN international normalized ratio (INR) 1.9 [...] Robin Arevalos RN coagulation managed by Robin Arevalos RN Robin Arevalos RN international normalized ratio (INR) 2.2 Robin Arevalos RN Normal prothrombin time (patient) 26.3 s Robin Arevalos RN coagulation managed by Robin Villarreal RN Robin Arevalos RN international normalized ratio (INR) 1.2 Robin Arevalos RN Normal prothrombin time (patient) 14.5 s Robin Arevalos RN coagulation managed by Robin Cherelle ROLAND Robin Arevalos RN international normalized ratio (INR) [...] RN Normal prothrombin time (patient) 41.7 s Annemraie Connelly RN coagulation managed by Annemarie Connelly [...] LinkLogic 3.5-5.2 sodium, serum 140 mmol/L LinkLogic [phone]/03/ 21 urea nitrogen/creatini ne ratio, serum 17 [...] Not Estab. platelet count 261 X10E3/UL LinkLogic [phone]/03/ 21 red blood cell distribution width 13.9 [...] by mouth once a day Arabella Taylor care home anticoagulant therapy warfarin 3 mg tablet completed Take 1 tablet by mouth every evening EXCEPT on Mon Mon and Fri , take 1 and one half tablet. (4.5 mg) - Annemarie Connelly RN care home anticoagulant therapy warfarin 2 mg tablet completed 1 tab on 01/19, 01/20, 01/21, 01/22 - Robin Villarreal RN levothyroxine 25 mcg tablet active Take 1 tablet by mouth every morning Annemarie Connelly RN warfarin 3 mg tablet completed Take 1 tablet by mouth every evening EXCEPT on Mon and take one half tablet. (1.5 mg) - Moustapha Koehler RN extermination supervisor anticoagulant therapy warfarin 2 mg tablet completed - Annemarie Connelly RN Vascepa 1 gram capsule active [facility] potassium chloride 20 mEq tablet extended release [...] hour as directed 72.75 units per day Ninahayden Salcido nitroglycerin 0.4 mg tablet, sublingual active [...] active 1 tablet once a day Lolisstlian Coron[place]e calcitriol 0.25 mcg capsule active 1 capsule [...] meal time followed by sliding scale - Lolisjamir Berger VIAGRA 50 MG ORAL TABLET completed 1 tab every 24 hours - Lolislian Berger PREDNISONE 10 MG ORAL TABLET completed [...] One Tab By Mouth Daily - Lolisjamir Coron[place]e HYDRALAZINE HCL 100 MG ORAL TABLET completed [...] passive cigarette sm kat exposure no Hamlet Otrega MD smoking status Never smoker Hamlet Ortega [...] Ortega MD smoking status Never smoker Miriam Maisha social history E&M Marital Statu s: Michael [...] Avni smoking status Never smoker Karley Terrazaschad ell social history E&M Marital Statu s: C [...] Payer name Policy type / Coverage type Eldred red democrat ID [id number] COMPLETE CARE [id number] (PPO C-SNP) Commercial insurance company [id number] [employer] Medicaid 3 [id number] ADVANCE DIRECTIVES Name Date DISCUSSED - NO DECISION MADE TREATMENT PLAN Date Name Performer [id number],SHamlet MD [id number],SHamlet MD [id number],SHamlet MD [id number],S, Hamlet Ramada n [place] [id number],S, Hamlet Ramada n [place] [id number],S, Hamlet Ramada n [place] [id number],S, Hamlet Ramada n [place] [id number],S, Hamlet Ramada n [place] [id number],S, Hamlet Ramada n [place] [id number],S, Hamlet Ramada n [place] [id number],S, Hamlet Ramada n [place] [id number],S, Hamlet Ramada n [place] [id number],S, Hamlet Ramada n [place] [id number],C,T he patient is using BiPAP on a regular basis. The patient has been benefiting from therapy and should continue use. Hamlet Ramadan [place] [id number],S, Hamlet Ramada n [place] [id number],S, Hamlet Ramada n [place] [id number],S, Hamlet Ramada n [place] [id number],S, Hamlet Ramada n [place] [id number],S, Hamlet Ramada n [place] [id number],S, Hamlet Ramada n [place] [id number],S, Hamlet Ramada n [place] [id number],S, Hamlet Ramada n [place] [id number],S, Hamlet Ramada n [place] [id number],S, Hamlet Ramada n [place] [id number],S, Hamlet Bloom n [id number],S, Hamlet Bloom n [id number],S, Hamlet Bloom n [id number],C,T he patient is using CPAP on a regular basis. The patient has been benefiting from therapy and should continue use. Hamlettim Ortega MD [id number],B, Hamlet Bloom megan ARNOLD [id number],S, Hamlet Loredodewayne guzman MD [id number],B, Hamlet Loredodewayne guzman MD [id number],B, Hamlet Bloom n [id number],S, Hamlet Loredodewayne guzman MD [id number],S, Hamlet Bloom megan ARNOLD [id number],B, Hamlet Bloom megan ARNOLD [id number],S, Hamlet Bloom megan ARNOLD [id number],S,L ast stress 01/08 had some abnormalities that fit with known coronary anatomy. No significant symptoms at this point. Will follow closely, no cath at this point. Patient is encouraged to increase activity as tolerated, particularly exercise in form of walking on treadmill. Hamlet Ortega MD [id number],B, Hamlet Bloom megan ARNOLD [id number],S, Hamlet Bloom megan ARNOLD [id number],S, Hamlet Bloom n [id number],C,T he patient is using CPAP on a regular basis. The patient has been benefiting from therapy and should continue use. Hamlet Ortega MD [id number],S, Hamlet Bloom megan ARNOLD [id number],S,L ast stress 01/08 had some abnormalities that [...] to see if EF has improved. Reviewed [facility] records from surgery and tests. Hamlet Ortega [...] Procedure Notes S tatus Phone Anti-Coag Management Robin Villarreal RN completed Complex e/m visit add on Hamlet [...] complet ed Jacob Ortega MD complete d Jacob Ortega MD complete d Phone Anti-Coag Management Hamlet Ortega MD completed Jacob Ortega MD complete d EKG Hamlet Ortega [...]
--- OUTSIDE RECORDS SUMMARY | 2024-11-19 13:30 | XMS_ITS | Encounter Summary ---
Author Organization [facility] Address [address] [facility] [place] [address] Care Team Providers Care Congressional Assistant Name Role Phone Matthew Aditya Ellison Primary Care Provider Unavailab le Reason for Visit * Reason Onset Date Comments Med Question 06/25/2019 Encounter Details Date Type Department Care Team (Late st Contact Info) Description 06/25/2019 Telephone [facility] [address] [place] [address] Finn Kramer MD [address] [place] [address] Med Question Social History Tobacco Use Types [...] pt he is asking that we call [facility] at [phone] and talk to them about the compression stockings. I called and spoke with Kashif at [facility] and gave clarification the the mmHg I let them know that they should Be the 20-30mmHg . He understood and will get them ready for pt. Anali Connelly CAR PAINTER/SANDBLASTER * Telephone Encounter - Theodore Huerta - 06/25/2019 10:40 AM CST Pt called saying patient pharmacy just needs clarification of a number on the prescription for compression socks. Please Advise. CAR PAINTER/SANDBLASTER documented in this encounter Plan of Treatment Not on file documented as of this encounter Visit Diagnoses Not on filedocumented in this encounter Care Teams Congressional Assistant Relationship Specialty Start Date End Date Aditya Castro Update Information PCP - General 03/06/19 documented as of this encounter
--- OUTSIDE RECORDS SUMMARY | 2024-11-19 13:30 | XMS_ITS | Data Portability ---
Author Organization [facility] IP Address [address] [place] [address] Care Team Providers Care Livestock Farmer Name Role Phone STEPHANIE CORREA Primary Care [...] By Organization Details Last Modified Time 07/25/2018 [id number] use OTC lubrican t eyedrops 3 times a day in both eyes. [email or web address] Not available 07/25/2018 17:27:28 Keep follow-up appointments in 2 months as scheduled. msafi Not available 07/25/2018 17:27:45 12/05/2018 [id number] diabetic retinopathy: care instructions msafi Not available 12/05/2018 20:02:55 type 2 diabetes: care instructions [facility] 12/05/2018 20:02:55 Reason for Referral None Reported. Problems Name Problem SNOMED Code Status Onset Date Resolution Date Notes Provider Name and Address Organization Details Recorded Time Diabetes mellitus 63521695 Active 2017 Wandy agosto [facility] 8 12:14:02 Hypercholestero lemia 05477691 Active 2017 Wandy agosto [place] Jude [facility] 8 12:14:14 Problem Notes None recorded. Procedures Surgical History Date Name Laterality Status Provider Name and Address Organization Details Recorded Time 9 placement of stent in coronary artery completed Wandy Rapp [place] Jude [facility] 12/05/2018 10:00:35 7 placement of stent in [...] Name and Address Organization Details Recorded Time 271167 Brilinta medicatio n Not available Not available Not available 07/04/2018 47656 36 RxNorm Not Available Not Available Not Available 475082 Iodinated contrast media (substanc e) medicatio n Not available Not available Not available 07/04/2018 39355 2004 SNOMED Not Available Not Available Not [...] 8 180.34 cm 64 /min 37 kg/m2 245580. 98 g 161 mm[Hg] 66 mm[Hg] Wandy Rapp [facility] SIF 8 12:12:14 Date Recorded Body height Heart rate Body mass index (BMI) Body weight Systolic blood pressure Diastolic blood pressure Provider Name and Address Organization Details Last Updated DateTime 8 180.34 cm 63 /min 36.9 kg/m2 733340. 46 g 148 mm[Hg] 67 mm[Hg] Bernice Connelly RN [facility] 8 15:12:11 Date Recorded Body height Body mass index (BMI) Body weight Heart rate Systolic blood pressure Diastolic blood pressure Provider Name and Address Organization Details Last Updated DateTime 180.34 cm 37.8 kg/m2 419245. 53 g 62 /min 133 mm[Hg] 64 mm[Hg] Wandy Rapp [facility] SI 9 09:58:22 Social History Question Answer Notes LastModified by Organizat ion Details LastModified Time Tobacco Smoking Status Never Smoker Wandy Rapp [facility] 12/05/2018 09:58:54 What Was The Date Of Your Most Recent Tobacco Screening? 12/05/2018 Information not available 03/14/2019 Has Tobacco Cessation Counseling Been Provided? 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 7365746501 34079 E11.3299 Tear film insufficiency 04138392 H04.630 [id number] Evy Olson MD [facility] [address] [place] [address] 12/05/2018 09:46:14 12/06/2018 13:28:35 Nonproliferative retinopathy due to diabetes mellitus 221049918 E11.3293 After-juan ract with vision obscured following extraction of cataract 094224577 H26.492 Health Concerns Section Related Observation LastModified by Organization Detai ls LastModified Time None Recorded Concern Status LastModified by Organization Details LastModified Time None Recorded Advance Directives Directive None Recorded Payers Encounter Date Sequence Insurance Name Policy Number Policy Ge Covered Member ID Ge Member ID Guarantor Name 07/04/2018 1 [facility] (MEDICAID HMO) [id number] Juvenal Newcombe [id number] Juvenal Newcombe 07/25/2018 1 [facility] (MEDICAID HMO) [id number] Juvenal Newcombe [id number] Juvenal Newcombe 12/05/2018 1 [facility] (MEDICAID HMO) [id number] Juvenal Newcombe [id number] Juvenal Newcombe Notes Date Note Type Note Provider Name and Address Organization Details Recorded Time 07/04/2018 text/html C/O bleeding in left eye seen by shrink pit supervisor H/O cat. Sx OU. 2016 and 2017. No prolbem in post op exam Evy Olson MD [address] [place], [address], [facility] 07/05/2018 10:07:17 07/25/2018 text/html complaint of red spot in the right eye since 3 days, no pain no discharge no previous injury.History of diabetic retinopathy in both eyes Evy Olson MD [address] [place], [address], [facility] 07/25/2018 17:28:04 12/05/2018 text/html F/U DRP. c/o decreased vision in left eye Evy Olson MD [address] [place], [address], [facility] 12/05/2018 20:02:58
--- OUTSIDE RECORDS SUMMARY | 2024-11-19 13:30 | XMS_ITS | Encounter Summary ---
Author Organization [facility] Address [address] [place] [address] Care Team Providers Care Cafeteria Monitor Name Role Phone Aditya Castro MD Primary Care Provider [phone] Encounter Details Date Type Department Care Team (Late st Contact Info) Description 04/15/2019 Telephone [facility] Oncology and Hematology - [place] [address] [facility] [address] [place] [address] Fernando Schmid MD [address] [facility] [address] [place] [address] Social History Tobacco Use Types [...] on filedocumented in this encounter Care Teams Cafeteria Monitor Relationship Specialty Start Date End Date Aditya Castro MD PCP - General Student in an Organized Health Care Education/Training Program 09/11/18 documented as of this encounter
[2024-11-19 14:18] LABS: NT Pro B Type Natriuretic Pept > 30000 pg/mL (19.9-100)
[2024-11-19 14:21] LABS: Alanine Aminotransferase 31 U/L (6-50); Albumin Level 3.7 g/dL (3.5-5.1); Alkaline Phosphatase 110 U/L (38-126); Anion Gap 15 mmol/L (4-12); Aspartate Amino Transferase 26 U/L (17-59); Bilirubin,Total 0.6 mg/dL (0.2-1.3); Blood Urea Nitrogen 53 mg/dL (9-20); Calcium 9.2 mg/dL (8.4-10.2); Carbon Dioxide 24 mmol/L (22-30); Chloride 88 mmol/L (98-107); Cholesterol 101 mg/dL (0-200); Estimated Glomerular Filt Rate 8; Glucose 621 mg/dL (65-110); HDL Direct 25 mg/dL; LDL Cholesterol Direct 41 mg/dL; Potassium 4.7 mmol/L (3.4-5.0); Sodium 127 mmol/L (137-145); Triglycerides 98 mg/dL (<150)
[2024-11-19 14:33] LABS: Free T4 Free Thyroxine 1.47 ng/dL (0.78-2.19)
[2024-11-19 14:39] LABS: Thyroid Stimulating Hormone 0.759 uIU/mL (0.465-4.680)
[2024-11-21 14:58] LABS: Immunoglobulin E 99 kU/L (<OR=114)
[2024-11-22 14:09] LABS: NIL 0.01 IU/mL; Quantiferon TB Plus, 1T NEGATIVE (NEGATIVE)
[2024-11-23 00:49] LABS: Immunoglobulin G, Serum 1103 mg/dL (600-1640); Immunoglobulin G1 621 mg/dL (382-929); Immunoglobulin G2 306 mg/dL (241-700); Immunoglobulin G3 57 mg/dL (22-178); Immunoglobulin G4 68.8 mg/dL (4.0-86.0)
== END 2024-11-19 12:33 | disposition home or self-care (01) ==
PROVIDERS: PCP Family Medicine; Referring Provider Nurse Practitioner; Visit Provider Internal Medicine Endocrinology, Diabetes & Metabolism
DX: R06.09 Other forms of dyspnea (principal); E78.5 Hyperlipidemia, unspecified; E10.65 Type 1 diabetes mellitus with hyperglycemia
CPT/HCPCS: 36415; 80053; 80061; 82104; 82784; 82785; 82787; 83880; 84439; 84443; 85048; 86480

== ENCOUNTER 2024-11-22 17:55 | Inpatient (IN) | payer MEDICARE, MEDICAID, SELFPAY ==
[2024-11-22] VITALS (11 sets, daily range): BP systolic 119–136; BP diastolic 75–88; PULSE 98–123; RESP 16–98; TEMP 36.2–36.5; O2SAT 21–100; BMI 38.0
--- NOTE | ~2024-11-22 | US_ITS ---
Procedure: Ultrasound guided left thoracentesis. Indication: left pleural effusion Operating Physician: Raisa Peña MD. Consent: After a detailed discussion of the procedure, risks, benefits and alternative treatment opti ons, informed consent was obtained from the patient. Time Out: A time out for procedure was performed in presence of Dr. Peña. The patient's identificati on was verified. Informed consent with agreement of procedure was reviewed. All necessary equipment w as available prior to procedure. Complications: None. Anesthesia: Local. Medication: 1% lidocaine locally. Procedure: Survey ultrasound of left chest was performed which was then prepped and draped in usual sterile fashion. Local anesthesia was administered. The pleural cavity was accessed and 800 mL serous fluid was removed. The catheter was removed and sterile dressing was applied. Patient tolerated the procedure. The procedure was personally performed by Dr. Peña. Findings: Sonographic images demonstrate left pleural effusion. Impression: Successful ultrasound guided thoracentesis. Plan: Follow-up chest radiograph will be obtained. Reviewed, dictated and finalized at location A. Impression: Successful ultrasound guided thoracentesis. Plan: Follow-up chest radiograph will be obtained.
--- NOTE | ~2024-11-22 | XR_ITS ---
CHEST RADIOGRAPH, PA AND LATERAL CLINICAL HISTORY: cough, sob . COMPARISON: 09/08/2024 and dating back to 08/18/2024 TECHNIQUE: PA and lateral views of the chest. FINDINGS Sternal wires and mediastinal clips are identified, the wires are midline and intact. The remainder of the cardiomediastinal silhouette is partially obscured, and otherwise unremarkable. Large left-sided pleural effusion, increased from most recent examination The right hemithorax is clear. IMPRESSION: Large left-sided pleural effusion, increased from 09/08/2024. Reviewed, dictated and finalized at location A.
--- NOTE | ~2024-11-22 | CT_ITS ---
CLINICAL INDICATION: Shortness of breath and cough COMPARISON: 08/17/2024. TECHNIQUE: Multiple contiguous axial images of the chest was performed without the administration of intravenous contrast. This CT examination was performed utilizing dose reduction techniques. DLP: 505 mGy-cm FINDINGS/OBSERVATIONS: LUNG: Increased left-sided pleural effusion, now with adjacent consolidation in the left lower lobe, an int erval change from prior examination. The right hemithorax is clear. HEART: The heart is enlarged, without pericardial effusion. MEDIASTINUM: Redemonstration of mediastinal lymphadenopathy, increased from 08/17/2024. The largest l ymph node measures 16 mm and is located in the right paratracheal position No pathologically enlarged or morphologically suspicious lymph nodes are identified within the bilate ral axilla or within the soft tissues of the anterior chest wall. SOFT TISSUES OF THE CHEST: Unremarkable. BONES OF THE CHEST: No acute fracture. Redemonstration of decreased disc height at the level of T6/T7 with endplate irregularity, erosions a nd sclerosis. No lytic or blastic lesions are identified. UPPER ABDOMEN: Intra-abdominal fluid, consistent with patient's history of peritoneal dialysis. IMPRESSION: Interval development of a left lower lobe infiltrate with increased left-sided pleural effusion, as d etailed above. Redemonstration of mediastinal lymphadenopathy. Reviewed, dictated and finalized at location A. IMPRESSION: Interval development of a left lower lobe infiltrate with increased left-sided pleural effusion, as detailed above. Redemonstration of mediastinal lymphadenopathy.
--- NOTE | ~2024-11-22 | CT_ITS ---
EXAMINATION: CT abdomen pelvis wo con DATE: 11/23/2024 20:33 INDICATION: abdominal pain TECHNIQUE: Computed tomography (CT) of the abdomen and pelvis was performed without intravenous contr ast. Automated exposure control and iterative reconstruction technique were employed. The dose-length product was 1445.05 mGy-cm. COMPARISON: CT cap 08/17/2024. FINDINGS: Lower thorax: Right lower lobe scar/atelectasis. Segmental left basilar opacity. Large left pleural e ffusion. Coronary artery consultation and likely stenting. Aortic valve replacement. Liver: Normal. Biliary/Gallbladder: Cholelithiasis. No inflammatory change. No bile duct dilation. Pancreas: Atrophy. Spleen: Normal. Adrenals:No mass. Kidneys: No suspicious mass or obstructing calcification. Mild right hydronephrosis with ureteral str anding. GI tract: No small or large bowel dilation. Appendix not confidently visualized. Mesentery/Peritoneum: Trace ascites. No free air or mass. Retroperitoneum: No mass. Atherosclerotic calcifications of intra-abdominal arterial vessels. Pelvis: Mild prostatomegaly. The urinary bladder is empty. Inflammatory change surrounding the bladde r wall. Soft Tissues: Moderate body wall edema. Fat and fluid-containing moderate sized umbilical hernia with considerable surrounding inflammatory change. Left lower quadrant peritoneal dialysis catheter, coil terminating in the left lower quadrant, minimal fluid tracking along the catheter in the abdominal w all. Bones: No acute osseous finding. IMPRESSION: Segmental left lower lobe atelectasis/consolidation. Large left pleural effusion. Cholelithiasis, without CT evidence of cholecystitis. Mild right hydronephrosis with ureteral stranding and inflammatory change of the urinary bladder, fin dings may represent cystitis with ascending infection. Inflamed fat-containing umbilical hernia. Moderate body wall edema. Reviewed, dictated and finalized at location K. IMPRESSION: Segmental left lower lobe atelectasis/consolidation. Large left pleural effusio n. Cholelithiasis, without CT evidence of cholecystitis. Mild right hydronephrosis with ureteral stranding and inflammatory change of th e urinary bladder, findings may represent cystitis with ascending infection. Inflamed fat-containing umbilical hernia. Moderate body wall edema.
--- NOTE | ~2024-11-22 | XR_ITS ---
XR abdomen/kub 1V Ordering provider: Sourav Rodriguez MD History: . kidney stone . Comparison: None. FINDINGS: BOWEL: Nonobstructive bowel gas pattern. ORGANOMEGALY: None. SIGNIFICANT PATHOLOGIC CALCIFICATIONS: None. OTHER: No free air is seen under the diaphragm. IMPRESSION: NO ACUTE ABDOMINAL FINDINGS. No definite stones seen. Noncontrast CT is better for evaluation. Reviewed, dictated and finalized at location A.
--- NOTE | ~2024-11-22 | XR_ITS ---
XR chest 2V 11/29/2024 14:03 Indication: Pain at the thoracentesis site Procedure: AP and lateral views of the chest Comparison: Comparison to multiple prior studies sequentially, with oldest reviewed study dated 07/22. Findings: Moderate left pleural effusion. Left basilar atelectasis. Cardiomegaly. No pneumothorax deana ntified. Impression: 1: Moderate left pleural effusion with underlying compressive atelectasis. Reviewed, dictated and finalized at location A. Impression: 1: Moderate left pleural effusion with underlying compressive atelectasis.
--- NOTE | ~2024-11-22 | XR_ITS ---
CHEST RADIOGRAPH, PA AND LATERAL CLINICAL HISTORY: Postthoracentesis imaging COMPARISON: 11/22/2024 TECHNIQUE: PA and lateral views of the chest. FINDINGS The cardiomediastinal silhouette is enlarged, unchanged. No left-sided pneumothorax following thoracentesis. Decreased left-sided pleural effusion. Remainder of the examination is unchanged. IMPRESSION: No pneumothorax following left-sided thoracentesis, as detailed above. Reviewed, dictated and finalized at location A.
--- OUTSIDE RECORDS SUMMARY | 2024-11-22 17:57 | XMS_ITS | Clinical Summary ---
Author Organization [facility] Address [address] [place] [address] Care Team Providers Care Suction Roller Name Role Phone Aditya Castro MD [...] tablet Take 30 mg by mouth daily cut off [employer]. Active clopidogrel (PLAVIX) 75 mg Tablet Take [...] Take 50,000 Units by mouth. Active Insulin Lowpoint, Disposable, (TRUEPLUS PEN NEEDLE) 31 gauge x [...] (06/29/2022): Added automatically from request for surgery [id number] Right upper quadrant pain 09/24/2020 Pre-transplant evaluation for kidney transplant 03/24/2020 Overview (06/29/2022): Images from the original note were not included. Juvenal Daigle 1970 Referring Insulation Worker Furnace Installer: Leandro Reyes Dialysis Info: Type: PD Time: 160 days (11/05/2019) Blood Type: A Body mass index is 37.8 kg/m . ALERTS Accounting Assistant: Vashti Lizama NP Past Medical History: Diagnosis Date Anemia Arthritis Arthropathy osteo. back and knees see Dr. Norton CAD (coronary artery disease) Community acquired pneumonia 2017 [facility] hospitalized with double pneumonia Congestive heart failure Coronary artery disease Diabetes mellitus type 1 teens dx when he was 13. Insulin since he was dx. Insulin pump currently with dexacom. Vashti Lizama NP is bag bundler. DM (diabetes mellitus) TYPE 1 DVT (deep venous thrombosis) 2017 [facility]. ESRD on peritoneal dialysis Gout History of blood transfusion 2017 during admission for [place] HLD (hyperlipidemia) HTN (hypertension) Hypercholesteremia 5 years on med Hypertension 30's on medications. Kidney disease Myocardial infarction 2017 [facility]. Stent x1 placed. Neuropathy feet [...] 07/02/2020: Committee Discussion Details: Pt brought to [facility] to discuss his cardiac workup. [...] Impression: It is the impression of this nephrology social worker that Juvenal Daigle has several [...] advised of safety concerns regarding immunosuppressants. Plan: residential support worker to provide supportive services as needed. Patient appears to be a reasonable candidate for transplant from a psychosocial perspective. -Post transplant arrangement forms are needed prior to being listed. Psychiatric Consult Recommended: No Transplant Statistics Professor: Radha Roper LCSW RD:05/14/2020 BMI= 40.0, [...] cm (5' 10 ) 06/29/2022 6:00 PM TRANSPLANT NURSE PRACTITIONER Body Mass Index 37.74 06/29/2022 6:00 PM TRANSPLANT NURSE PRACTITIONER Plan of Treatment Health Maintenance Due Date [...] T d or Tdap) 10/21/2029 10/22/2019 Insurance [facility] [id number] [facility] MCR Advance Directives For more information, please contact: [phone] * Full Code (Latest Code Status on File) Date Activated Date Inactivated Comments 06/29/2022 2:49 PM 07/08/2022 4:30 PM Care Teams Suction Roller Relationship Specialty Start Date End Date Aditya Castro MD PCP - General Student in an Organized Health Care Education/Training Program 09/11/18
--- OUTSIDE RECORDS SUMMARY | 2024-11-22 17:58 | XMS_ITS | Clinical Summary ---
Author Organization [facility] Address [address] [place] [address] Phone Care Team Providers Care Director Print Name Role Phone Unavailable Primary Care Provider [...] daily 0 12/27/2017 Active Cholecalciferol (VITAMIN D3) 33122 units capsule 1 tab by mouth once [...]
--- OUTSIDE RECORDS SUMMARY | 2024-11-22 17:58 | XMS_ITS | Data Portability ---
Author Organization [place] [facility] [employer], Main Office Address [address] [place] [address] Care Team Providers Care Program Evaluation Consultant Name Role Phone ADITYA CASTRO Primary Care Provider ADITYA CASTRO Referring Provider ADITYA CASTRO Primary Care Provider [phone] Assessment Encounter Date Assessment Date Assessment LastModified [...] per schedule. Cont f/u with Endo at [place] as per schedule. Cont f/u with Spine as per schedule. Cont f/u with Rheumat at [facility] as per schedule. Cont f/u with Surg as per schedule. Cont f/u with Cardio at [facility] as per schedule. Cont f/u with Nephro at [facility] as per schedule. Cont f/u with Hemat at [place] as per schedule. Cont f/u with Staff Rn as per schedule. Cont f/u with Ophtho at as per schedule. Cont f/u with Derm at [facility] as per schedule. Cont f/u with Dr. Langley (Hand surgeon) at as per schedule. Educated pt about alarming symptoms to monitor at home and call us back or get checked in ED. Pt had acute renal failure and was admitted hospital due to s/e from Allopurinol as per his Statistical Reporting Analyst. So pt can not take any Allopurinol [...] per schedule. Cont f/u with Endo at [place] as per schedule. Cont f/u with Spine as per schedule. Cont f/u with Rheumat at [facility] as per schedule. Cont f/u with Surg as per schedule. Cont f/u with Cardio at [facility] as per schedule. Cont f/u with Nephro at [facility] as per schedule. Cont f/u with Hemat at [place] as per schedule. Cont f/u with Staff Rn as per schedule. Cont f/u with Ophtho at as per schedule. Cont f/u with Derm at [facility] as per schedule. Cont f/u with Dr. Langley (Hand surgeon) at as per schedule. Educated pt about alarming symptoms to monitor at home and call us back or get checked in ED. Pt had acute renal failure and was admitted hospital due to s/e from Allopurinol as per his Statistical Reporting Analyst. So pt can not take any Allopurinol [...] in 3-4 months. Annual labs in 05/15. [email or web address] Not available 08/27/2024 15:22:37 10/31/2024 10/31/2024 Time [...] f/u with Cardio and Pulmo as directed. [email or web address] Not available 11/18/2024 12:26:24 Plan of Treatment Reminders Order Date Submit Date Provider Last Modified By Organization Details Last Modified Time Details Appointments Follow Up 15 2024 09:45A Lisa Castro MD Not available Not available Not available Lab alpha-1 -antitr ypsin (aat) phenoty pe, serum 2024 025 [email or web address] 2 [facility] (Lab), [address] [place], [address], 11/20/2024 10:38:50 ige, total, serum 2024 025 [email or web address] 2 [facility] (Lab), [address] [place], [address], 11/20/2024 10:38:50 tb (M tubercu losis), ifn-jono ma hiwot, blood 2024 025 [email or web address] 2 [facility] (Lab), [address] [place], [address], 11/20/2024 10:38:50 igg subclas ses 1+2+3+4 , serum 2024 025 [email or web address] 2 [facility] (Lab), [address] [place], [address], 11/20/2024 10:38:50 respira tory allerge n panel, [facility] A, serum 2024 025 [email or web address] 2 [facility] (Lab), [address] [place], [address], 11/20/2024 10:38:50 respira tory allerge n panel - [facility] b 2024 [email or web address] [place] [address] (Lab), [address] [place], [address], 11/20/2024 10:38:51 eosinop hils, quant, blood 2024 025 [email or web address] [facility] (Lab), [address] [place], [address], 11/22/2024 11:32:45 pro BNP (pro B-type natriur etic peptide ), serum or plasma 2024 025 SAMANTHA [facility] (Lab), [address] [facility], [place], [address], 11/22/2024 11:24:17 Referral pain managem ent referra l - Please call patient to schedul e an appoint ment. Thank you. 2024 025 [email or web address] [facility], [address], [address], [place], [address], 09/25/2024 08:49:04 general surgeon referra l - Please call patient to schedul e an appoint ment. Thank you. 2023 024 [email or web address] Everton Hooker MD, [address] [facility], [address], [place], [address], 08/12/2024 08:54:30 Procedures injecti on/aspi ration joint/b ursa (PROC) 2023 024 [email or web address] In-Office Order, Internal Use Only DO Not Attach Compendium DO Not Attach Compendium, Do Not Delete/merge, [id number] 06/21/2024 11:43:13 Surgeries None recorde d. Imaging CT, chest, w/o contras t - Please call patient to schedul e.Note from provide r: previou s Ct in 02/2024 lung nodules present -worsen ing of dyspnea and hx of afib-hx CKD stage 5 2024 025 [email or web address] [facility], [address], [place], [address], 11/18/2024 11:52:35 XR, hip + pelvis, unilate ral 2023 024 [email or web address] [facility] [place], [address], [place], [address], 06/21/2024 12:02:32 Medication Orders amoxici llin 875 mg-pota ssium clavula nadira 125 mg tablet 2024 025 [facility]23053, [address] [facility], [place], [place], [id number], 11/18/2024 11:56:30 prednis one 10 mg tablet 2024 025 [facility] #21111, [address], [place], [place], [id number], 11/18/2024 11:56:32 benzona laura 200 mg capsule 2024 025 [facility] #54779, [address], [place], [place], [id number], 11/18/2024 11:56:29 ketocon azole 2 % shampoo 2024 025 [facility] #95035, [address], [place], [place], [id number], 11/18/2024 12:00:22 colchic ine 0.6 mg tablet 2024 025 [facility] #67536, [address], [place], [place], [id number], 08/27/2024 14:33:42 Uloric 40 mg tablet 2024 025 [facility] #46525, [address], [place], [place], [id number], 08/27/2024 15:24:16 Vascepa 1 gram capsule 2024 025 [facility] #75402, [address], [place], [place], [id number], 08/27/2024 15:24:17 tamsulo sin 0.4 mg capsule 2024 025 [facility] #23716, [address], [place], [place], [id number], 08/27/2024 14:30:45 ondanse ness HCl 4 mg tablet [address] [facility]39288, [address], [place], [place], [id number], 10/31/2024 11:07:02 ezetimi be 10 mg tablet 2024 025 [facility] #29922, [address], [place], [place], [id number], 08/27/2024 15:24:17 gemfibr ozil 600 mg tablet [address] [facility]00543, [address], [place], [place], [id number], 10/31/2024 11:05:57 famotid ine 40 mg tablet 2024 025 [facility] #03162, [address], [place], [place], [id number], 08/27/2024 14:33:43 tamsulo sin 0.4 mg capsule 2023 024 [facility] #90041, [address], [place], [place], [id number], 07/15/2024 12:10:41 ketorol ac 10 mg tablet 2023 024 [email or web address] [facility] #84368, [address], [place], [place], [id number], 08/27/2024 15:23:27 oxycodo ne 5 mg tablet 2023 024 [facility] #89907, [address], [place], [place], [id number], 08/27/2024 15:23:49 ondanse ness HCl 4 mg tablet 2023 024 [facility] #94788, [address], [place], [place], [id number], 10/31/2024 11:07:02 bupivac will HCl 0.5 % (5 mg/mL) injecti on solutio n 2023 024 [email or web address] [facility] #06128, [address], [place], [place], [id number], 06/21/2024 11:52:35 Kenalog 10 mg/mL suspens ion for injecti on 2023 024 [id number] 15 [facility]31632, [address], [place], [place], [id number], 07/12/2024 21:17:10 Patient TargetsNo targets recorded. Patient Instructions Encounter Date Encounter Id Patient Instructions Last Modified By Organization Details Last Modified Time 07/15/2024 [id number] starting a weigh t loss plan: care instructions [email or web address] Not available 07/15/2024 12:10:41 08/27/2024 [id number] starting a weigh t loss plan: care instructions [email or web address] Not available 08/27/2024 14:30:39 10/31/2024 [id number] complete PFT w/ post bronchodilator spirometry* [email or web address] Not available 11/20/2024 14:01:06 Reason for Referral General Surgeon Referral for [...] observ ation record ed. [email or web address] [facility] [place] [address] [facility] [address], [place], [address], 06/21/2024 12:02:31 07/12/2007/12/2024 CT, abdom en + pelvi s, w/o contr ast No observ ation record ed. [address], [place], [address], 07/15/2024 11:27:52 07/16/20 24 07/16/2024 CT, abdom en + pelvi s, w/o contr ast No observ ation record ed. [address], [place], [address], 08/27/2024 14:24:26 08/11/20 24 08/11/2024 CT, abdom en + pelvi s, w/o contr ast No observ ation record ed. [address], [place], [address], 08/27/2024 14:24:26 10/23/19 25 10/16/2024 CT, thora colum bar spine , w/o contr ast No observ ation record ed. [place] [id number] [facility] [address], [place], [address], 11/18/2024 11:52:31 Result Notes None recorded. 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 028893385 Active 2017 Not Available [facility] 3 01:10:47 Chronic back pain 915402201 Active 2022 Not Available [facility] 3 01:10:47 Hyperchol esterolem ia 69369869 Active 2017 Not Available [facility] 3 01:10:47 Seborrhei c dermatiti s of scalp 618030732 Active 2022 Not Available [facility] 3 01:10:47 Chronic physical disabilit y 671140018 Active 2018 Not Available [facility] 3 01:10:47 History of deep vein thrombosi s 844299506 Active 2017 Not Available [facility] 3 01:10:47 Heartburn 67645285 Active 2017 Not Available [facility] 3 01:10:47 Ultrasoun d scan abnormal 409324888 Active 2020 Not Available [facility] 3 01:10:47 Hypertrop hy of nasal turbinate s 79889233 Active 2021 Not Available [facility] 3 01:10:47 Sensorine ural hearing loss of bilateral ears 515813947 Active 2021 Not Available [facility] 3 01:10:47 Periphera l venous insuffici ency 76860984 Active 2020 Not Available [facility] 3 01:10:47 Myocardia l infarctio n 61819925 Completed 201705/08/2018 Not Available [facility] 3 01:10:48 Stable angina 324011927 Active 2017 Not Available [facility] 3 01:10:48 End stage renal failure on dialysis 207250498 Active 2019 Not Available [facility] 3 01:10:48 Degenerat ion of lumbar intervert ebral disc 16476543 Active 2018 Not Available [facility] 3 01:10:48 Gastroeso phageal reflux disease without esophagit is 116931769 Active 2017 Not Available [facility] 3 01:10:48 Anemia 037205921 Active 2017 Not Available [facility] 3 01:10:48 Chronic low back pain 541809119 Active 2018 Not Available [facility] 3 01:10:48 Pain in toe 332125545 Active 2018 Not Available [facility] 3 01:10:48 Pain in toe 362244363 Active 2018 Not Available [facility] 3 01:10:48 Right upper quadrant pain 335353174 Active 2020 Not Available [facility] 3 01:10:48 Type 2 diabetes mellitus without complicat ion 554969883 Completed 201701/10/2019 Not Available [facility] 3 01:10:48 Pain in left foot 34838540981 9107 Active 2019 Not Available [facility] 3 01:10:48 Vitamin D deficienc y 27128781 Active 2017 Not Available [facility] 3 01:10:49 Seasonal allergic rhinitis 352603970 Active 2017 Not Available [facility] 3 01:10:49 Sinusitis 82893069 Active 2021 Not Available [facility] 3 01:10:49 Hypertens bianca disorder 01272430 Active 2017 Not Available [facility] 3 01:10:49 Osteoarth ritis 242782250 Active 2019 Not Available [facility] 3 01:10:49 Umbilical hernia 773069819 Active 2018 Not Available [facility] 3 01:10:49 Vertigo 877917887 Active 2021 Not Available [facility] 3 01:10:49 Abrasion and/or friction burn of skin 880222055 Active 2018 Not Available [facility] 3 01:10:49 Chronic sinusitis 82141941 Active 2021 Not Available [facility] 3 01:10:49 Multiple benign melanocyt ic nevi 305052287 Active 2017 Not Available [facility] 3 01:10:50 Deep venous thrombosi s of lower extremity 745286880 Active 2022 Not Available [facility] 3 01:10:50 Dizziness 327039893 Active 2017 Not Available [facility] 3 01:10:50 Dysphagia 61107082 Active 2021 Not Available [facility] 3 01:10:50 Obesity 843681315 Active 2017 Not Available [facility] 3 01:10:50 Ketoacido sis due to type 1 diabetes mellitus 888957342 Active 2019 Not Available [facility] 3 01:10:50 Nausea 379859931 Active 2021 Not Available [facility] 3 01:10:50 Congestiv e heart failure 68542920 Active 2017 Not Available [facility] 3 01:10:50 Diabetic periphera l neuropath y 521934538 Active 2017 Not Available [facility] 3 01:10:51 Asymmetri nikos hearing loss 450536017 Active 2021 Not Available [facility] 3 01:10:51 Chronic kidney disease stage 4 100098684 Completed 201707/29/2020 Not Available [facility] 3 01:10:51 Chronic kidney disease stage 5 623355458 Active 2019 Not Available [facility] 3 01:10:51 Uncontrol led type 2 diabetes mellitus 201698714 Completed 201705/16/2019 Aditya Castro MD [address] [place] [address], [address] [address], [place], [address] , [facility] 4 09:03:03 Gastritis 2936755 Active 2021 Not Available [facility] 3 01:10:51 End-stage renal disease 10093777 Active 2019 Not Available [facility] 3 01:10:51 Type 1 diabetes mellitus 69334578 Active 2018 Not Available [facility] 3 01:10:52 Atrial fibrillat ion 06495014 Active 2017 Not Available [facility] 3 01:10:52 Hyperlipi demia 81814558 Active 2017 Not Available [facility] 3 01:10:52 Heart disease 32381573 Active 2017 Not Available [facility] 3 01:10:52 Hyperpara thyroidis m 92689292 Active 2018 Not Available [facility] 3 01:10:52 Nasal congestio n 18611326 Active 2021 Not Available [facility] 3 01:10:52 Diabetes mellitus 78805145 Active 2017 Not Available [facility] 3 01:10:52 Obstructi ve sleep apnea syndrome 00106532 Active 2018 Not Available [facility] 3 01:10:53 Epigastri c pain 60776760 Active 2021 Not Available [facility] 3 01:10:53 Chronic idiopathi c constipat ion 87353572 Active 2020 Not Available [facility] 3 01:10:53 Corneal abrasion 99274528 Active 2018 Not Available [facility] 3 01:10:53 Dystrophi a unguium 65032281 Active 2018 Not Available [facility] 3 01:10:53 Gout 14659800 Active 2017 Not Available [facility] 3 01:10:53 Chronic renal failure 15249803 Completed 201705/08/2018 Not Available [facility] 3 01:10:54 Skin lesion 88599731 Active 2017 Not Available [facility] 3 01:10:54 Hypertrig lyceridem ia 374197865 Active 2022 Aditya Castro MD [address], [address], [place], [address] , [employer] 3 16:04:08 Chronic constipat ion 353520289 Active 2022 Aditya Castro MD [address], [address], [place], [address] , [employer] [facility] [employer] 3 16:45:46 Cough 54885073 Active 2022 Aditya Castro MD [address], [address], [place], [address] , [employer] 3 12:45:44 Bronchiti s 33291981 Active 2022 Aditya Castro MD [address], [address], [place], [address] , [employer] 3 09:22:50 Allergic rhinitis 84366666 Active 2022 Aditya Castro MD [address], [address], [place], [address] , [employer] [facility] [employer] 3 09:28:39 Allergic contact dermatiti s 621275863 Active 2022 Aditya Castro MD [address], [place], [address] , [employer] [facility] [employer] 3 16:06:02 Tinea cruris 750203393 Active 2022 Aditya Castro MD [address], [place], [address] , [employer] [facility] 3 16:06:15 Acute bacterial sinusitis 19875494 Active 2023 KATIE Chen [address], [address], [address] , [facility] 4 09:55:25 Ulcer of mouth 37292412 Active 2023 Aditya Castro MD [address] [address], [place], [address] , [facility] [place] [facility] 4 09:03:52 Onychomyc osis of toenails 531765115 Active 2023 Chris Linda DPM [address] [employer] [address], [address], [place], [address] , [facility] [place] [facility] 4 12:24:55 Folliculi tis 34472630 Active 2023 Aditya Castro MD [address] [place] [address], [place], [address] , [facility] [place] [facility] 4 10:26:36 Pain of right knee joint 80691804538 4100 Active 2023 Aditya Castro MD [address] [place] [address], [place], [address] , [facility] [place] [facility] 4 10:31:07 Bleeding of ear canal 967761298 Active 2023 Aditya Castro MD [address] [place] [address], [place], [address] , [facility] [place] [facility] 4 10:40:38 Acute left otitis media 388489580 Active 2023 Rohit Jessica MD [address] [employer] [address], [place], [address] , [facility] [place] [facility] 4 16:04:39 Thoracic back pain 033552047 Active 2023 Aditya Castro MD [address] [place] [address], [place], [address] , [facility] 4 16:28:59 Pain of right shoulder blade 333834400 Active 2023 Aditya Castro MD [address], [address], [place], [address] , [facility] 4 16:30:04 Degenerat ion of thoracolu ar intervert ebral disc 95498877 Active 2023 Aditya Castro MD [address], [address], [place], [address] , [facility] 4 16:30:54 Hypothyro idism 09607336 Active 2023 Aditya Castro MD [address], [address], [place], [address] , [facility] 4 16:34:29 Uncontrol led type 2 diabetes mellitus 854392604 Active 2023 Aditya Castro MD [address], [address], [place], [address] , [facility] 4 09:03:03 Bilateral osteoarth ritis of knees 85960894881 9107 Active 2023 Sofia Keyonna agosto, [facility] 4 11:42:16 Pain of left knee joint 56333250893 4107 Active 2023 LESLY Gambino [address], [address], [place], [address] , [facility] 4 13:42:14 Pain in right hip joint 61603649143 9102 Active 2023 KELLE John, [facility] 4 11:11:43 Trochante margarita bursitis of right hip 48628257380 9100 Active 2023 LESLY Gambino [address], [address], [place], [address] , [facility] 4 12:00:40 Gallstone 551495348 Active 2023 Aditya Castro MD [address], [address], [place], [address] , [employer] 4 11:21:33 Right flank pain 240746628 Active 2023 Aditya Castro MD [address], [address], [place], [address] , [employer] [facility] [employer] 4 11:29:38 Kidney stone 85437983 Active 2023 Aditya Castro MD [address], [address], [place], [address] , [employer] 4 11:31:01 Pleural effusion 09177922 Active 2024 Aditya Castro MD [address], [address], [place], [address] , [employer] 5 11:40:43 Dyspnea on exertion 92223193 Active 2024 Milly Hidalgo NP [address], [address], [place], [address] , [employer] 5 11:13:03 Multiple nodules of lung 530084140 Active 2024 Milly Hidalgo NP [address], [address], [place], [address] , [employer] 5 11:31:08 Environme ntal allergy 699373927 Active 2024 Milly Hidalgo NP [address], [address], [place], [address] , [employer] 5 12:39:05 Notes:blood clots, coronary artery disease, head trauma or injury, kidney disease, seizures, use of blood thinners, balance problems, numbness or tingling, loss of memory, swelling in legs, shortness of breath, muscle pain, back/neck pain, swollen or painful joints, excessive thirst, dry mouth, sleep apnea, wears glasses Some problems listed in Document: #[id number] could not be added to this patient's chart. Please review this document and add these problems to the patient's chart manually as needed. Problem Notes None recorded. Procedures Surgical History Date Name Laterality Status Provider Name and Address Organization Details Recorded Time 05/02/20 24 Nail Debridement completed Chris Linda DPM [address], [address], [place], [address], [employer] 05/20/2024 09:31:13 03/11/20 24 Nail Debridement completed Chris Linda DPM [address], [address], [place], [address], [employer] 03/11/2024 12:35:50 03/11/20 24 Wound Care-Podiatry completed Chris Linda DPM [address], [address], [place], [address], [employer] 03/11/2024 12:34:57 01/08/20 24 Wound Care-Podiatry completed Chris Linda DPM [address], [address], [place], [address], [employer] 01/08/2024 12:26:31 12/25/19 24 Medicare Wellness CPT Code, subsequent completed Beth Willis RN [facility] [employer] [facility] 12/25/2023 15:24:37 11/06/19 24 Medicare Wellness CPT Code, subsequent cancelled Beth Willis RN [facility] [employer] 11/03/2023 10:10:00 01/08/20 22 SEPTOPLASTY (SURG) completed Not Available [facility] 10/19/2022 01:16:48 01/22/20 21 Cardiac Cath completed Not Available [facility] 023 01:06:21 reduction of nasal turbinate completed Not Available [facility] 10/19/2022 01:06:21 procedure on heart completed Lisa Lopez CNA [employer] 05/10/2024 11:11:45 Imaging Results Imaging Date Name Status LastModified by Organization Details LastModified Time 06/21/2024 XR, hip + pelvis, unilateral completed [email or web address] [email or web address] [place] [address] [facility] [address], [place], [address], 06/21/2024 12:02:31 07/12/2024 CT, abdomen + pelvis, w/o contrast completed [address], [place], [address], 07/15/2024 11:27:52 07/16/2024 CT, abdomen + pelvis, w/o contrast completed [address], [place], [address], 08/27/2024 14:24:26 08/11/2024 CT, abdomen + pelvis, w/o contrast completed [address], [place], [address], 08/27/2024 14:24:26 10/16/2024 CT, thoracolumbar spine, w/o contrast [place] [id number] [facility] [address], [place], [address], 11/18/2024 11:52:31 Procedure Notes None recorded. Medical Equipment None Reported. Allergies Allergen ID Allergen Name Allergen Category Reaction Reaction Severity Criticality Documentation Date Start Date Code Code System Note Provider Name and Address Organization Details Recorded Time 1834 Iodinated contrast media (substanc e) medicatio n rash severe Not available 10/19/2022 20731 2004 SNOMED Not Available [facility] 3 01:16:23 1835 Brilinta medicatio n rash severe Not available 10/19/2022 93883 36 RxNorm Not Available [facility] 3 01:16:23 1836 allopurin ol medicatio n other severe Not available 10/19/2022 519 RxNorm Not Available [facility] 3 01:16:23 Medications Name Sig [...] drops INT 1 GTT IN OS QID 05/20 /2024 completed Not Available Not Available Not [...] tended release [address] Shannon kirk es Not Available Not Available Not Available ampicilli [...] mg by injectio n route. 2023 active [facility]: [id number] 12-08 Not Available Not Available Not [...] DAY active Not Available Not Available No Uncontroll ed type 2 diabetes mellitus 570240796 E11.65 Hypertriglyceridemia 302 097462 E78.2 Hyperlipidemia 28656141 E78.5 Chronic constipation 236 270160 K59.09 Obesity 260095190 E66.9 [id number] Aditya Castro MD [facility] [place] [address] 01/23/2023 09:08:48 01/23/2023 09:38:23 Bronchitis 82629204 J40 Cough 16873348 R05.9 Chronic ki dney disease stage 5 714947758 N18.5 Allergic rhinitis 106982 04 J30.9 Vitamin D deficiency 347 08920 E55.9 [id number] Aditya Castro MD [address] [address] 06/27/2023 15:52:59 06/27/2023 16:15:54 Allergic contact dermatitis 875452437 L23.9 Tinea cruris 441359984 B 35.6 Administra tion of influenza vaccine 65615746 Z23 Chronic low back pain 27 5637034 M54.59 Gout 06734760 M10.9 [id number] Aditya Castro MD [address] [address] 07/10/2023 15:50:39 07/10/2023 16:20:39 Vitamin D deficiency 87379079 E55.9 Gout 92005761 M10.9 Hyperparathyroidism 6699 9008 E21.3 Uncontroll ed type 2 diabetes mellitus 014915679 E11.65 Hypertriglyceridemia 302 870878 E78.2 Hyperlipidemia 08637480 E78.5 Chronic constipation 236 431407 K59.09 Obesity 856175110 E66.9 Bronchitis 44070151 J40 [id number] KATIE Chen [address] [address] 12/07/2023 09:26:05 12/07/2023 11:06:01 Acute bacterial sinusitis 87283369 J01.90 Add humidifcat ion to bedroom at night [id number] Aditya Castro MD [address] [address] 12/25/2023 15:06:36 12/25/2023 16:45:08 Gout 07365152 M10.9 Vitamin D deficiency 347 75500 E55.9 Hyperparathyroidism 6699 9008 E21.3 Uncontroll ed type 2 diabetes mellitus 550712869 E11.65 Hypertriglyceridemia 302 563818 E78.2 Hyperlipidemia 99128700 E78.5 Chronic constipation 236 064392 K59.09 Obesity 790089982 E66.9 Bronchitis 34580607 J40 Adult [facility] th examination 241854117 Z00.00 Screening for disorder 822429621 Z13.9 Ulcer of mouth 67909189 K12.1 Screening for malignant neoplasm of prostate 578175903 Z12.5 [id number] Chris Linda DPM [facility] Podiatry [place] [address] [place] [address] 01/08/2024 11:55:29 01/11/2024 12:25:06 Onychomycosis of toenails 406864960 B35.1 educated on conditiont opical antifungal Rxfollow-u p in 1-2 months Blister of toe without infection 26820588 S90.424A right 3rd toeMonitor for infection dailyBetad ine wet-to-dry dressings dailyfollo w-up 1 week Diabetic p eripheral neuropathy 411906550 E11.40 Patient educated on neuropathy , diabetes, diabetic diet, and daily foot exams. Patient is to check feet daily for new wounds, blisters, redness to prevent infection and ulceration s to the feet. Patient will return to clinic in 3 months for diabetic foot workup. Dystrophia unguium 77222 009 L60.3 nails debrided without incident [id number] Aditya Castro MD [facility] [address] 02/15/2024 10:01:48 02/15/2024 10:47:11 Gout 67107118 M10.9 Vitamin D deficiency 347 99241 E55.9 Hyperparathyroidism 6699 9008 E21.3 Uncontroll ed type 2 diabetes mellitus 835424468 E11.65 Hypertriglyceridemia 302 182850 E78.2 Hyperlipidemia 11575639 E78.5 Chronic constipation 236 172088 K59.09 Obesity 690955426 E66.9 Bronchitis 28549654 J40 Folliculitis 07369921 L7 3.9 Seborrheic dermatitis of scalp 990214449 L21.0 Pain of ri ght knee joint 3963897355 12845 M25.561 Bleeding of ear canal 30 3123059 H92.22 [id number] Rohit Jessica MD [facility] [place] [address] [place] [address] 02/15/2024 15:35:10 02/16/2024 12:44:58 Acute left otitis media 682293785 H66.92 [id number] Chris Linda DPM [facility] Podiat[facility] [place] [address] [place] [address] 03/11/2024 12:07:37 03/12/2024 16:35:57 Blister of foot without infection 5195884 S90.821A right foot medial 1st metatarsop halangeal jointofflo adingwound care daily until healedfoll ow-up 10 days Blister of toe without infection 31509629 S90.425A left 4th toetriple antibiotic ointment and Band-Aid appliedwou nd care as above Diabetes mellitus 855104 09 E13.9 Continue diabetic control per PCP recommenda tion Diabetic p eripheral neuropathy 724728284 E11.40 Patient educated on neuropathy , diabetes, diabetic diet, and daily foot exams. Patient is to check feet daily for new wounds, blisters, redness to prevent infection and ulceration s to the feet. Patient will return to clinic in 3 months for diabetic foot workup.con tinue diabetic shoe gear Dystrophia unguium 47207 009 L60.3 nails debrided without incident [id number] Aditya Castro MD [facility] [address] 04/16/2024 16:08:23 04/16/2024 17:22:18 Thoracic back pain 267760877 M54.6 Pain of ri ght shoulder blade 741094974 M25.511 Degenerati on of thoracolumbar intervertebral disc 52755003 M51.35 Hypothyroidism 63750283 E03.9 Obesity 388607009 E66.9 End stage renal failure on dialysis 812675260 N18.6 Chronic low back pain 27 8618873 M54.59 [id number] Chris Linda DPM [facility] Podiat[facility] [place] [address] [place] [address] 05/02/2024 10:29:22 05/20/2024 11:32:52 Onychomycosis of toenails 959953586 B35.1 right great toenailsch eduled total nail avulsionRe viewed treatment optionsFol low-up for procedure Right great toenail avulsion scheduled 07/15/2024 Peripheral venous insufficiency 97018142 I87.2 Rx compressio n stockings 20 30 mm Hgelevatio n when at restmonito r for signs of DVT at present seek medical attention immediatel y Dystrophia unguium 42178 009 L60.3 nails debrided without incident Abrasion a nd/or friction burn of skin 412830233 T14.8XXA healed abrasions x4 left lower leg Diabetic p eripheral neuropathy 834019041 E11.40 Patient educated on neuropathy , diabetes, diabetic diet, and daily foot exams. Patient is to check feet daily for new wounds, blisters, redness to prevent infection and ulceration s to the feet. Patient will return to clinic in 3 months for diabetic foot workup.con tinue diabetic shoe gear [id number] Aditya Castro MD [address] [address] 05/07/2024 09:01:36 05/07/2024 09:40:15 Gout 83500026 M10.9 Vitamin D deficiency 347 96768 E55.9 Hyperparathyroidism 6699 9008 E21.3 Uncontroll ed type 2 diabetes mellitus 347834439 E11.65 Hypertriglyceridemia 302 477652 E78.2 Hyperlipidemia 88102221 E78.5 Chronic constipation 236 258530 K59.09 Obesity 235572273 E66.9 Pain of ri ght knee joint 3073765598 45046 M25.561 Chronic Screening for malignant neoplasm of prostate 256571209 Z12.5 Chronic back pain 555251 002 G89.29 Screening colonoscopy 44 5350142 Z12.11 [id number] LESLY Gambino [facility] [place] [address] [place] [address] 05/10/2024 10:46:13 05/10/2024 11:48:23 Pain of right knee joint 0718963792 93212 M25.561 Bilateral osteoarthritis of knees 2914864135 17678 M17.0 Pain of le ft knee joint 2642223482 10087 M25.796 [id number] Aditya Castro MD [place] [address] 05/21/2024 15:45:57 05/21/2024 16:21:32 Gout 90284852 M10.9 Vitamin D deficiency 347 99905 E55.9 Uncontroll ed type 2 diabetes mellitus 272880490 E11.65 Hypertriglyceridemia 302 668376 E78.2 Hyperlipidemia 80770527 E78.5 Chronic constipation 236 580867 K59.09 Obesity 848644448 E66.9 Pain of ri ght knee joint 7235978178 99810 M25.561 Chronic Chronic back pain 567406 002 G89.29 [id number] LSELY Gambino [facility] [place] [address] [place] [address] 06/21/2024 11:06:53 06/21/2024 11:57:45 Bilateral osteoarthritis of knees 1570947948 47302 M17.0 Pain of ri ght knee joint 4302705961 88548 M25.561 Pain of le ft knee joint 5033915059 41745 M25.562 Pain in ri ght hip joint 3783584040 40873 M25.551 Trochanter ic bursitis of right hip 5917660022 81817 M70.61 [id number] Aditya Castro MD [address] [address] 07/15/2024 10:53:35 07/15/2024 12:16:54 Chronic constipation 322422594 K59.09 Chronic back pain 613927 002 G89.29 Obesity 914948539 E66.9 [facility] in [facility] 100572965 Z76.89 Gallstone 276578252 K80. 20 Right flank pain 2831961 09 R10.9 Kidney stone 58025931 N2 0.0 Rt Impaired mobility 263654 05 Z74.09 Due to pain [id number] Aditya Castro MD [address] [address] 08/27/2024 14:12:33 08/27/2024 14:51:01 Right flank pain 689717770 R10.9 Kidney stone 03217881 N2 0.0 Rt Gallstone 546513778 K80. 20 Chronic constipation 236 810058 K59.09 Chronic back pain 458096 002 G89.29 Impaired mobility 750646 05 Z74.09 Due to pain Obesity 984684151 E66.9 Hospital i npatient stay within past 30 days 9215683666 106 Z76.89 Gout 35867185 M10.9 Gastroesop hageal reflux disease without esophagitis 359836557 K21.9 End-stage renal disease 14299358 N18.6 History of deep vein thrombosis 191452938 Z86.718 Hyperlipidemia 19956884 E78.5 Hypertriglyceridemia 302 007252 E78.2 [id number] Milly Hidalgo NP [facility] [place] [address] [facility] [address] [place] [address] 10/31/2024 10:42:36 10/31/2024 12:31:33 Dyspnea on exertion 26049232 R06.09 Most likely cardiac related-wi ll do r/o for pulmonaryL ab work todayCAT-2 3Mmrc-3PFT for baselineAw are to use Albuterol inhaler as needed-ok to use when sobEncoura ge patient to remain activefoll ow-up once testing is complete-s ooner for any changes in breathing and increase use of inhaler Multiple n odules of lung 524183162 R91.[address] findings from [...] sob Body mass index 30+ - obesity 089531369 Z68.37 [id number] Aditya Castro MD [facility] [address] [address] 11/18/2024 11:23:35 11/18/2024 12:04:29 Bronchitis 50356114 J40 Cough 07449832 R05.9 Seborrheic dermatitis of scalp 943277436 L21.0 End-stage renal disease 68950989 N18.6 Atrial fibrillation 4943 6004 I48.91 Health [...] MEDICARE OR MEDICARE REPLACEMENT PRIMARY) Juvenal Daigle [id number] Juvenal Daigle 06/21/2024 1 [facility] (MEDICARE REPLACEMENT/AD VANTAGE - PPO) [id number] Juvenal Daigle [id number] Juvenal Daigle 07/15/2024 2 [place] WHEN MEDICARE OR MEDICARE REPLACEMENT PRIMARY) Juvenal Daigle [id number] Juvenal Daigle 07/15/2024 1 [facility] (MEDICARE REPLACEMENT/AD VANTAGE - PPO) [id number] Juvenal Daigle [id number] Juvenal Daigle 08/27/2024 2 [place] OR MEDICARE REPLACEMENT PRIMARY) Juvenal Daigle [id number] Juvenal Daigle 08/27/2024 1 [facility] (MEDICARE REPLACEMENT/AD VANTAGE - PPO) [id number] Juvenal Daigle [id number] Juvenal Daigle 10/31/2024 2 [place] WHEN [place] OR MEDICARE REPLACEMENT PRIMARY) Juvenal Daigle [id number] Juvenal Daigle 10/31/2024 1 [facility] (MEDICARE REPLACEMENT/AD VANTAGE - PPO) [id number] Juvenal Daigle [id number] Juvenal Daigle 11/18/2024 2 [place] WHEN [place] OR MEDICARE REPLACEMENT PRIMARY) Juvenal Daigle [id number] Juvenal Daigle 11/18/[address] [facility] (MEDICARE REPLACEMENT/AD VANTAGE - PPO) [id number] Juvenal Daigle [id number] Juvenal Daigle Notes Date Note Type Note [...] the groin with weight-bearing. LESLY Gambino [address] [facility], [facility] [address], [place], [address], [place] - [facility] [employer] 06/21/2024 12:03:04 07/15/2024 text/html ACV:ED fuv. C/o [...] and Cardio regularly. Aditya Castro MD [address] [facility], [place] [address], [place], [address], [employer] 07/15/2024 12:12:12 08/27/2024 text/html ACV:Hospital fuv . Pt was admitted to [facility] from 08/17/24 to 08/19/24 due to hematuria, pneumonia and hyperkalemia. He has finished all his meds and he is feeling much better now. Pt is requesting Rx for bedside commode and marcelo hose stockings. Pt will be seeing Surg for his gallstones next week. Pt is f/u with Uro at [facility] for his kidney stones and hematuria. Pt has chronic back pain for last several years and was seeing Pain clinic and Spine surgeon for it in the past; but he has not seen them for last couple years. Pt is f/u with Nephro, Endo and Cardio regularly. Aditya Castro MD [address] [facility], [place] [address], [place], [address], [employer] 08/27/2024 15:24:37 10/31/2024 text/html DyspneaReported bypatient.Quality:dysp marry;can't [...] pain/discomfort;palpit ations;orthopnea;wheez ing;fatigue;coughing up sputum;ankle swelling;lightheadedne ss;weakness Milly Hidalgo NP [address] [facility], [facility] [address], [place], [address], [employer] 10/31/2024 11:57:01 11/18/2024 text/html ACV: C/o cough, congestion, fatigue, chest pain with deep inspiration for last 2-3 days. Pt denies any known sick contact. Pt has been doing otc meds, but not getting better. Pt doesn't want to go to ED for this. Aditya Castro MD [address] [facility], [facility] [address], [place], [address], [employer] 11/18/2024 12:26:41 t Available Procrit 20,000 unit/mL injection solution [...] active Not Available Not Available Not Avai labguillermo Novolog FlexPen U-100 Insulin aspart 100 unit/mL [...] completed Not Available Not Available Not Available BillieToaamir Delica Lancets 30 gauge 09/06 completed Not [...] Updated DateTime 06/21/2024 177.8 cm 37.9 kg/m2 683698.39 g Lisa Lopez CNA [facility] [employer] 06/21/2024 11:11:01 Date Recorded Body height Body mass index (BMI) Body weight Body temperature Heart rate Oxygen saturation Oxygen saturation in Arterial blood by Pulse oximetry Pain severity - 0-10 verbal numeric rating [Score] - Reported Systolic blood pressure Diastolic blood pressure Provider Name and Address Organization Details Last Updated DateTime 177.8 cm 38 kg/m2 670261. 19 g 97.3 [degF] 72 /min 97 % 97 % 10 150 mm[Hg] 78 mm[Hg] Lucinda Fletcher RN [facility] [employer] [facility] 4 11:26:31 Date Recorded Respiratory rate Provider Name a nd Address Organization Details Last Updated DateTime 07/15/2024 22 /min Lisa Gonzáles [address] [facility] [address], [address], [facility] [employer] [facility] 07/15/2024 12:05:38 Date Recorded Body height Body mass index (BMI) Body weight Body temperature Heart rate Systolic blood pressure Diastolic blood pressure Provider Name and Address Organization Details Last Updated DateTime 5 177.8 cm 38.6 kg/m2 187030. 1 g 97.2 [degF] 78 /min 140 mm[Hg] 70 mm[Hg] Jessica Macedo RN [facility] [employer] [facility] 5 14:22:23 Date Recorded Oxygen saturation Oxygen saturation in Arterial blood by Pulse oximetry Provider Name and Address Organization Details Last Updated DateTime 08/27/2024 95 % 95 % Aditya Castro MD [address] [place] [address], [place], [address], [facility] [employer] 08/27/2024 14:24:24 Date Recorded Body height Body mass index (BMI) Body weight Heart rate Oxygen saturation Oxygen saturation in Arterial blood by Pulse oximetry Body temperature Systolic blood pressure Diastolic blood pressure Provider Name and Address Organization Details Last Updated DateTime 5 177.8 cm 37.7 kg/m2 915259. 79 g 80 /min 94 % 94 % 98.3 [degF] 112 mm[Hg] 60 mm[Hg] Nina Pool MA [facility] [employer] [facility] 5 11:11:14 Date Recorded Body height Body mass index (BMI) Body weight Body temperature Oxygen saturation Oxygen saturation in Arterial blood by Pulse oximetry Systolic blood pressure Diastolic blood pressure Provider Name and Address Organization Details Last Updated DateTime 5 177.8 cm 38.1 kg/m2 671606. 38 g 97.6 [degF] 95 % 95 % 140 mm[Hg] 86 mm[Hg] Jessica Macedo RN [facility] [employer] [facility] 5 11:50:22 Date Recorded Heart rate Provider Name an d Address Organization Details Last Updated DateTime 11/18/2024 96 /min Lisa Gonzáles [address] [facility], [facility] [address], [place], [address], [facility] [employer] [facility] 11/18/2024 12:23:14 Social History Question Answer Notes LastModified by Organization Details LastModified Time Tobacco Smoking Status Never Smoker Not Available [employer] 10/19/2022 01:04:37 Do You Have An Advance Directive? No MIGRATION.0301 [id number] Information not available 10/19/2022 What Is Your Level Of Alcohol Consumption? None MIGRATION.0301 127761 Information not available 10/19/2022 Are You Blind Or Do You Have Difficulty Seeing? No MIGRATION.0301 800549 Information not available 10/19/2022 Is Blood Transfusion Acceptable In An Emergency? Yes Information not available 12/07/2023 What Is Your Level Of Caffeine Consumption? Occasional MIGRATION.0301 366400 Information not available 10/19/2022 How Much Tobacco Do You Chew? None MIGRATION.0301 685422 Information not available 10/19/2022 What Is Your Code Status? Full Code Information not available 12/07/2023 In The 14 Days Before Symptom Onset, Have You Had Close Contact With A Laboratory-confi rmed COVID-19 While That Case Was Ill? No MIGRATION.0301 531876 Information not available 10/19/2022 In The 14 Days Before Symptom Onset, Have You Had Close Contact With A Person Who Is Under Investigation For COVID-19 While That Person Was Ill? No MIGRATION.0301 907708 Information not available 10/19/2022 Are You Deaf Or Do You Have Serious Difficulty Hearing? No MIGRATION.0301 237170 Information not available 10/19/2022 What Type Of Diet Are You Following? CARDIAC And Renal MIGRATION.0301 631867 Information not available 10/19/2022 Which Illicit Or Recreational Drugs Have You Used? NONE MIGRATION.0301 691619 Information not available 10/19/2022 Do You Or Have You Ever Used E-cigarettes Or Vape? Never Used Electronic Cigarettes MIGRATION.0301 968796 Information not available 10/19/2022 What Is The Highest Grade Or Level Of School You Have Completed Or The Highest Degree You Have Received? IS44319-4 2 Years MIGRATION.0301 993801 Information not available 10/19/2022 Do You Have An Electrostatic Air Filter? No Information not available 10/31/2024 What Is Your Occupation? DISABLED MIGRATION.0301 167881 Information not available 10/19/2022 Have There Been Any Changes To Your Family Or Social Situation? No Information not available 12/07/2023 Are There Any Guns Present In Your Home? No MIGRATION.0301 809009 Information not available 10/19/2022 Do You Have A Humidifier? No Information not available 10/31/2024 Do You Use Insect Repellent Routinely? No Information not available 12/07/2023 Where Do You Live? SingleLevelHouse Information not available 12/07/2023 Advance Directive- Providers Has Reviewed Directive And Consents To Follow Them (insert Provider Name With Any Objectives In Notes Field) No MIGRATION.030 979676 Information not available 10/19/2022 Presence Of Domestic [...] Do You Have A Medical Power Of Senior Hadoop Developer? No Information not available 12/07/2023 Do You Have Moisture Problems In Your Home? No Information not available 10/31/2024 What Was The Date Of Your Most Recent Tobacco Screening? 10/31/2024 Information not available 10/31/2024 Do You Have Any Pets? Yes Information not available 12/07/2023 What Is Your Relationship Status? Single MIGRATION.0301 989226 Information not available 10/19/2022 Do You Use Your Seat Belt Or Car Seat Routinely? Yes MIGRATION.0301 623119 Information not available 10/19/2022 Do You Have Smoke And Carbon Monoxide Detectors In Your Home? Yes Information not available 12/07/2023 Are You Passively Exposed To Smoke? No Information not available 12/07/2023 Do You Or Have You Ever Used Smokeless Tobacco? Never Used Smokeless Tobacco MIGRATION.0301 106176 Information not available 10/19/2022 Are There Any Smokers In Your House? No Information not available 12/07/2023 Do You Feel Stressed (tense, Restless, Nervous, Or Anxious, Or Unable To Sleep At Night)? [id number] MIGRATION.030 550556 Information not available 10/19/2022 Do You Use Sunscreen Routinely? No Information not available 12/07/2023 Have You Recently Traveled Abroad? No MIGRATION.0301 783847 Information not available 10/19/2022 Are You Currently In School? No MIGRATION.030 126261 Information not available 10/19/2022 Sex: Unknown Functional Status Question Answer Note LastModified by [employer] Details LastModified Time Do you have difficulty walking or climbing stairs? No MIGRATION.41125670 26 Information not available 10/19/2022 Do you have difficulty doing errands alone? No MIGRATION.82727132 26 Information not available 10/19/2022 Do you have difficulty dressing or bathing? No MIGRATION.29660615 26 Information not available 10/19/2022 What is your exercise level? Occasional MIGRATION.54661378 26 Information not available 10/19/2022 Mental Status Question Answer Note LastModified by [employer] Details LastModified Time Do you have difficulty concentrating, remembering or making decisions? No MIGRATION.294149974 6 Information not available 10/19/2022 Family History Relationship Description Onset Age of this Age Resolved Age Notes LastModified by Organization Details LastModified Time Father Heart disease MIGRATION.275 [id number] Not available 10/19/2022 01:06:25 Father Hypertensive disorder MIGRATION.187 [id number] Not available 10/19/2022 01:06:25 Notes:cancer-mother NO ENT H ISTORY Medical History Condition Response MRSA N SLEEP APNEA N ALLERGIES/HAYFEVER N LUNG DISEASE/DISORDER N HEART ARRHYTHMIA Y HISTORY OF DRUG ABUSE N INSOMNIA N COPD N RADIATION / CHEMOTHERAPY N HIGH CHOLESTEROL / HYPERLIPIDEMIA Y HYPERTHYROIDISM N BLOOD DISEASES N EAR OR HEARING PROBLEMS N HYPOTHYROIDISM N SHINGLES N DEPRESSION (INCLUDING POST ) N HAVE YOU BEEN HOSPITALIZED OR SEEN IN [facility] ER IN THE PAST YEAR ? N [...] quadrivalent, PF 3 completed BERNARDO Reddy Jerardo [place] [employer] [facility] 07/03/2023 11:25:39 pneumococcal polysaccharide PPV23 0 completed Not Available [facility] hospital 10/19/2022 01:16:16 Tdap 0 completed Not Available Critical [facility] hospital 10/19/2022 01:16:16 Influenza, split virus, quadrivalent, PF 9 completed Not Available Critical access hospital 10/19/2022 01:16:16 Influenza, split virus, quadrivalent, PF 2 completed Not Available Critical access hospital 10/19/2022 01:16:16 Influenza, split virus, quadrivalent, PF 1 completed Not Available Critical access hospital 10/19/2022 01:16:16 Past Encounters Encounter ID Performer Location Encounter Start Date Encounter Closed Date Diagnosis/Indication Diagnosis SNOMED-CT Code Diagnosis ICD10 Code Diagnosis Note [id number] [facility] [address] [place] [address] 10/27/2020 00:00:00 10/27/2020 10:48:24 [id number] [facility] [address] [place] [address] 03/08/2021 00:00:00 03/08/2021 17:34:39 [id number] _ATHENA_M IGRATION_ DEFAULT_1 _1 , 03/22/2021 00:00:00 03/22/2021 20:53:26 [id number] [facility] [address] [place] [address] 06/08/2021 00:00:00 06/09/2021 09:19:54 [id number] [facility] [address] [place] [address] 06/22/2021 00:00:00 06/22/2021 16:14:11 [id number] [facility] [address] [place] [address] 06/29/2021 00:00:00 06/29/2021 12:04:58 [id number] [facility] [address] [place] [address] 07/22/2021 00:00:00 07/22/2021 10:59:05 [id number] [facility] [place] [address] [place] [address] 09/09/2021 00:00:00 09/09/2021 17:59:48 [id number] [facility] [address] [place] [address] 10/05/2021 00:00:00 10/05/2021 16:51:40 [id number] [facility] [place] [address] [place] [address] 10/12/2021 00:00:00 10/12/2021 16:03:48 [id number] [facility] [place] [address] [place] [address] 11/18/2021 00:00:00 11/18/2021 15:39:06 [id number] _ATHENA_M IGRATION_ DEFAULT_1 _1 , 12/20/2021 00:00:00 01/15/2022 22:33:55 [id number] [facility] [address] [address] 12/28/2021 00:00:00 12/28/2021 11:10:02 [id number] [facility] [place] [address] [place] [address] 01/18/2022 00:00:00 01/18/2022 16:24:34 [id number] [facility] [address] [place] [address] 01/25/2022 00:00:00 01/25/2022 15:00:07 [id number] [facility] [place] [address] [place] [address] 02/17/2022 00:00:00 02/17/2022 15:06:30 [id number] [facility] [address] [place] [address] 03/29/2022 00:00:00 03/29/2022 10:58:26 [id number] [facility] [place] [address] [place] [address] 05/12/2022 00:00:00 05/12/2022 14:21:01 [id number] _ATHENA_M IGRATION_ DEFAULT_1 _1 , 05/16/2022 00:00:00 05/16/2022 16:50:12 [id number] [facility] [address] [address] 07/13/2022 00:00:00 07/13/2022 17:28:54 [id number] [facility] [address] [place] [address] 09/06/2022 00:00:00 09/06/2022 15:23:36 [id number] [facility] [address] [place] [address] 10/11/2022 00:00:00 10/11/2022 17:27:53 [id number] Aditya Castro MD [facility] [address] 11/01/2022 09:46:21 11/01/2022 10:14:11 [id number] Aditya Castro MD [facility]_[address] [address] 11/08/2022 15:47:51 11/08/2022 16:30:48 Vitamin D deficiency [id number] E55.9 [facility] [place] [id number] M10.9 [facility] 6699 9008 E21.3
--- OUTSIDE RECORDS SUMMARY | 2024-11-22 17:58 | XMS_ITS | Encounter Summary ---
Author Organization [facility] Address [address], [place] [address] Phone Care Team Providers Care Mine Engineer Name Role Phone Unavailable Primary Care Provider Unavailabl e Reason for Visit * Reason Comments Med Refill Encounter Details Date Type Department Care Team (Late st Contact Info) Description 02/13/2019 Refill [facility] [address] [address] Leandro Reyes MD [address] [address] Social History Tobacco Use Types [...]
--- OUTSIDE RECORDS SUMMARY | 2024-11-22 17:58 | XMS_ITS | Referral Summary ---
Author Organization [facility] Address [address] [place] [address] Care Team Providers Care General Studies Program Chair Name Role Phone Aditya Castro MD Primary Care Provider [phone] Alondra Lambert RN Unavailable [phone] Shannon Brock MD, Hamlet Gordon Unavailable [phone] Leandro Reyes MD Unavailable [phone] Encounters Date Type Department Care Team Description 11/06/2024 Documentation [facility] [address] [facility] [address] [phone] [place] [address] Melany Kelly Appointment/Schedules 11/05/2024 Telephone [facility] [address] [facility] [address] [phone] [place] [address] Alondra Lambert, LUAN 09/12/2024 Orders Only [facility] [address] [place] [address] Lalit Machuca MD from Last [...] 1 tablet (25 mcg total) by mouth director of early childhood before breakfast 30 tablet 1 11/04/19 24 [...] mg SL tablet 12/28/19 18 Active peg 545-hdgwgfdntgug-yi ycerin (ARTIFICAL TEARS) 1-0.2-0.2 % ophthalmic solution 1 drop 4 (four) times a day 07/07/20 22 Active potassium chloride ER 20 mEq CR tablet Active Active Problems Problem Noted Date Diagnosed Date End stage renal disease 07/29/2024 Nonrheumatic aortic valve stenosis 11/22/2023 Status post aortic valve replacement 11/22/2023 Status post coronary artery bypass grafting 10/2023 CAD in [place] artery 10/13/2023 Anemia 06/22/2022 Assessment & Plan (06/29/2022 10:12 AM GEAR FINISHER): Stable, likely 2/2 anemia from ESRD, no [...] 06/22/2022 Assessment & Plan (06/29/2022 10:12 AM GEAR FINISHER): - Renal consulted, s/p CRRT in the ICU now back on PD. Tolerated well and nephrology following - Trialysis catheter removed - Continue vitamins for renal bone mineral disease. Assessment & Plan (06/28/2022 3:29 PM GEAR FINISHER): - Renal consulted, s/p CRRT in the [...] 06/22/2022 Assessment & Plan (06/29/2022 10:12 AM GEAR FINISHER): C/b cardiogenic shock requiring impella in the setting of cath and AHRF 2/2 pulmonary edema, now resolved. TTE demonstrating recovered EF 65% with grade I diastolic dysfunction. - metop as above - continue low dose losartan 12.5mg daily, ok per nephro. Tolerating well - volume management per PD Assessment & Plan (06/28/2022 3:29 PM GEAR FINISHER): C/b cardiogenic shock requiring impella in the [...] 06/22/2022 Assessment & Plan (06/29/2022 10:12 AM GEAR FINISHER): Converted to NSR overnight on 06/24. CHADsVASc of 4 not on anticoagulation prior to admission. - cardiology consulted - recommended ongoing rate control - holding off on a/c with high risk for bleeding while on DAPT - reduced metop to 25mg BID in the setting of hypotension, HR 70s NSR Assessment & Plan (06/28/2022 3:30 PM GEAR FINISHER): Converted to NSR overnight on 06/24. CHADsVASc [...] 08/22/2021 Assessment & Plan (06/29/2022 10:11 AM GEAR FINISHER): With recurrent chest pain post-cath. He has [...] today Assessment & Plan (06/28/2022 3:30 PM GEAR FINISHER): With recurrent chest pain post-cath. He has [...] 06/22/2022 Assessment & Plan (06/29/2022 10:11 AM GEAR FINISHER): Secondary to NSTEMI, s/p Impella since removed on 06/10. Resolved. Assessment & Plan (06/23/2022 4:55 PM CDT): Secondary to NSTEMI, s/p Impella since removed on 06/10. Resolved. Assessment & Plan (06/22/2022 8:22 PM CDT): -Secondary to NSTEMI, s/p Impella since removed on 06/10. Acute hypoxemic respiratory failure 06/09/2022 Assessment & Plan (06/29/2022 10:12 AM GEAR FINISHER): Secondary to ACS and flash pulmonary edema, [...] BiPAP liberally; wean Fentanyl further in the moirah-extubation period. --Continue IPV to assist with mucous clearance --Continue antibiotics per primary team --Continue to keep as dry as possible Hypotension 06/03/2022 Overview (06/10/2022): Added automatically from request for surgery [id number] Abnormal cardiovascular stress test 12/29/2020 Overview (12/29/2020): Added automatically from request for surgery [id number] 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n ative artery of [place] heart with stable angina pectoris ([facility]) 05/23/2017 History of coronary artery stent placement [...] 01/18/2013 Assessment & Plan (06/29/2022 10:12 AM GEAR FINISHER): A1c well controlled on admission. He uses [...] session Assessment & Plan (06/28/2022 3:28 PM GEAR FINISHER): A1c well controlled on admission. He uses [...] materials from doctor or pharmacy Never 12/01/2023 [facility] Utilities Answer Date Recorded In the [...] How often do you attend religion or episcopalian serv ices? Never 08/01/2024 Do [...] time in the past 12 m [place], were you homeless or living in a mcfp (including now)? No 08/01/2024 Personal Safety Answer Date Recorded Have you ever been in or are you currently in a harmful physical or emotional relationship or is someone making you feel afraid or unsafe? 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 Male 3:42 AM GEAR FINISHER Gender Identity Not on file Sexual Orientation Not on file Last Filed Vital Signs Vital Sign Reading Time Taken Comments Blood Pressure 122/75 07/29/2024 1:00 PM GEAR FINISHER Pulse 116 07/29/2024 1:00 PM GEAR FINISHER Temperature 36.8 C (98.2 F) 07/29/2024 1:00 PM GEAR FINISHER Respiratory Rate 16 12/01/2023 11:1 3 AM CDT Oxygen Saturation 96% 12/01/2023 11: 13 AM CDT Inhaled Oxygen Concentration - - Weight 121.2 kg (267 lb 1.6 oz) 07/29/2024 1:00 PM GEAR FINISHER Height 177.8 cm (5' 10 ) 07/29/2024 1:00 PM GEAR FINISHER Body Mass Index 38.32 07/29/2024 1:00 PM GEAR FINISHER Plan of Treatment Not on file Medical Devices Implanted Type Area Extrusion Line Operator Device Identifier Shelf Expiration Date Model / Serial / Lot Kyle Vascular Device Clsr Perclose Prostyle Sut-Mediatd Closure-Repair Sys 25881-08 - [id number] Implanted:Qty: 1 on 06/10/2022 by Champ Osborne MD PhD at [facility] Other - see comments Right: Femoral Kyle [employer] 01/19/202484180-45 [employer] Mary Synergy Xd Monorail 2.5mm 48mm 144cm Delivery System 1 Access [id number] - [id number] Implanted:Qty: 1 on 06/07/2022 by Champ Osborne MD PhD at [facility] Stent [employer] Mary 10/27/2023 [id number] / / [id number] [employer] Mary Synergy Xd Monorail 3mm 24mm 144cm Delivery System 1 Access Port [id number] - [id number] Implanted:Qty: 1 on 06/07/2022 by Champ Osborne MD PhD at [facility] Stent [employer] Mary 07/28/2023 [id number] / / [id number] [employer] Mary Synergy Xd Monorail 2.5mm 12mm 144cm Delivery System 1 Access [id number] - [id number] - [id number] Implanted:Qty: 1 on 06/07/2022 by Champ Osborne MD PhD at [facility] Stent [employer] Mary 05/03/2023 [id number] / [id number] / [id number] Daig Mary [id number] Device Closure Angio-Seal Vip Bondek-Plus Polyglyd L70 Cm Od6 Fr Odsec.035 In Vascular - [id number] Implanted:Qty: 1 on 01/21/2021 by Hamlet Ortega Jr., MD at [facility] Left: Groin [employer] Mary [id number] / / Kyle Vascular Device Clsr Perclose Prostyle Sut-Mediatd Closure-Repair Sys 89969-61 - [id number] Implanted:Qty: 1 on 06/07/2022 by Champ Osborne MD PhD at [facility] Kyle Vascular 01/19/2024 [id number] Kyle Vascular Device Clsr Perclose Prostyle Sut-Mediatd Closure-Repair Sys 62063-68 - [id number] Implanted:Qty: 1 on 06/07/2022 by Champ Osborne MD PhD at [facility] Kyle Vascular 11/19/2023 [id number] / / [id number] Bard Access Systems Power-Trialysis 13fr 30cm 3 Lumen Kink Resistance Symmetric Tip [id number] - [id number] Implanted:Qty: 1 on 06/07/2022 by Champ Osborne MD PhD at [facility] Right: Jugular Ramirez Dexter 07/20/2024 [id number] / / [id number] Abi[employer] Inc Impella Cp Percutaneous Left Ventricular Assist Device 4738-6360 - [id number] Implanted:Qty: 1 on 06/07/2022 by Champ Osborne MD PhD at [facility] Left: Ventricle [employer] Inc [id number] / / Bard Access Systems Power-Trialysis 13fr 20cm 3 Lumen Short Term Dialysis Straight [id number] - [id number] Implanted:Qty: 1 on 06/18/2022 at [facility] Ramirez Dexter 07/20/2024 [id number] / / [id number] Rl Biomet Inc Screw Bone Slf Drl Full Thread Locking 3.5x14mm Ti 100.035.14 - [id number] Implanted:Qty: 6 on 10/17/2023 by Lorne Mcnulty MD at [facility] N/A: Sternum Rl Bi[employer] Inc 100.035.1 4 / / Rl Biomet Inc Plate Bone Low Profile 6 Hole H Shape Sternum Ti 115.102.06 - [id number] Implanted:Qty: 2 on 10/17/2023 by Lorne Mcnulty MD at [facility] N/A: Sternum Rl [employer] Inc 115.102.0 6 / / Rl [employer] Inc Plate Bone Low Profile 6 Hole O Shape Sternum Ti 115.104.06 - [id number] Implanted:Qty: 1 on 10/17/2023 by Lorne Mcnulty MD at [facility] N/A: Sternum [employer]l [employer] Inc 115.104.0 6 / / On-X Intrnl Valve Coronary Aortic Mechanical On X 25mm Onxane-25 - [id number] - [id number] Implanted:Qty: 1 on 10/17/2023 by Lorne Mcnulty MD at [facility] N/A: Heart On-X Intrnl 01/22/2028 ONXANE-25 / [id number] / Rl Biomet Inc Screw Bone Slf Drl Full Thread Locking 3.5x18mm Ti 100.035.18 - [id number] Implanted:Qty: 12 on 10/17/2023 by Lorne Mcnulty MD at [facility] N/A: Sternum Rl [employer] Inc 100.035.1 8 / / Explanted Type Area Extrusion Line Operator Device Identifier Shelf Expiration Date Model / Serial / Lot Bard Peripheral Vascular Bard .25x.25in Esmond Thk1.65mm Square Pledget Cardiovascular Ptfe [id number] - [id number] Explanted:Qty: 1 on 10/17/2023 by Lorne Mcnulty MD at [facility] N/A: Heart Bard Peripheral Vascular 05/18/2026 [id number] / / Procedures Procedure Name Priority Date/Time Associated Diagnosis Comments CARDIOLOGY DOCUMENT SCAN Routine 09/08/2024 11:26 AM GEAR FINISHER CARDIOLOGY DOCUMENT SCAN Routine 09/07/2024 11:24 AM GEAR FINISHER CARDIOLOGY DOCUMENT SCAN Routine 09/05/2024 11:06 AM GEAR FINISHER HEPATITIS C ANTIBODY Routine 07/29/2024 11:01 AM GEAR FINISHER End stage renal disease (HCC) EGFR Routine 07/29/2024 11:01 AM GEAR FINISHER End stage renal disease (HCC) HEMOGLOBIN A1C Routine 07/29/2024 11:01 AM GEAR FINISHER End stage renal disease (HCC) LIPID PANEL Routine 07/29/2024 11:01 AM GEAR FINISHER End stage renal disease (HCC) PSA SCREEN Routine 07/29/2024 11:01 AM GEAR FINISHER End stage renal disease (HCC) TSH Routine 10/27/2023 2:30 AM GEAR FINISHER from Last 3 Months or Most Recently Relevant to Health Maintenance Results * Cardiology Document Scan (09/08/2024 11:26 AM GEAR FINISHER) Anatomical Region Laterality Modality Other Juan Christianson MD CV CARDIAC SERVICES PROCEDU RES Final Result * Cardiology Document Scan (09/07/2024 11:24 AM GEAR FINISHER) Anatomical Region Laterality Modality Other Juan Christianson MD CV CARDIAC SERVICES PROCEDU RES Final Result * Cardiology Document Scan (09/05/2024 11:06 AM GEAR FINISHER) Anatomical Region Laterality Modality Other Lalit Machuca MD CV CARDIAC SERVICES PROCEDURES F inal Result * (ABNORMAL) eGFR (07/29/2024 11:01 AM GEAR FINISHER) eGFR 7(L) >=60 mL/min/1. 73 m2 Comment: [...] reviewed 2021. Blood 07/29/2024 11:0 1 AM GEAR FINISHER 07/29/2024 11:33 AM GEAR FINISHER us Jossie King MD LAB BLOOD ORDERABL ES Final Result [facility] Department [place] [address] * PSA screen (07/29/2024 11:01 AM GEAR FINISHER) PSA-Total 0.55 <=3.90 ng/mL Comment: Interpretive Data [...] revised 21. Blood 07/29/2024 11:0 1 AM GEAR FINISHER 07/29/2024 11:33 AM GEAR FINISHER Narrative [facility] - 07/29/2024 12:39 PM GEAR FINISHER This lab is being obtained as part of a Kidney transplant evaluation, is time sensitive, and should only be drawn during the evaluation visit at [address] Lab[address] Jossie King MD LAB BLOOD ORDERABL ES Final Result [facility] Department [place] [address] * Hepatitis C antibody Blood (07/29/2024 11:01 AM GEAR FINISHER) Pathologist [facility] Hep C Ab Nonreactive Nonreactive Comment:Antibodies to HCV no t detected. Does NOT exclude the possibility of recent exposure to HCV. Current interpretive data was last revised on 22 Blood 07/29/2024 11:0 1 AM GEAR FINISHER 07/29/2024 11:32 AM GEAR FINISHER Narrative [facility] - 07/29/2024 12:47 PM GEAR FINISHER This lab is being obtained as part of a Kidney transplant evaluation, is time sensitive, and should only be drawn during the evaluation visit at [address] Lab[address] Jossie King MD LAB MICROBIOLOGY - GENERAL ORDERABLES Final Result Performing Organization Address City/[facility] Co de Phone Number [facility] Department [place] [address] * (ABNORMAL) Hemoglobin A1c (07/29/2024 11:01 AM GEAR FINISHER) Hgb A1C 9.0(H) 4.0 - 5.6 % [...] fasting glucose. Blood 07/29/2024 11:0 1 AM GEAR FINISHER 07/29/2024 11:34 AM GEAR FINISHER Narrative [facility] - 07/29/2024 11:53 AM GEAR FINISHER This lab is being obtained as part of a Kidney transplant evaluation, is time sensitive, and should only be drawn during the evaluation visit at [facility] Lab. Jossie King MD LAB BLOOD ORDERABL ES Final Result Performing Organization Address [facility] Co de Phone Number [facility] Department [place] [address] * (ABNORMAL) Lipid panel (07/29/2024 11:01 AM GEAR FINISHER) [facility] Cholesterol 114 30 - 199 mg/dL [...] GENERAL HOSPITAL Blood 07/29/2024 11:0 1 AM GEAR FINISHER 07/29/2024 11:33 AM GEAR FINISHER Narrative [facility] - 07/29/2024 12:10 PM GEAR FINISHER This lab is being obtained as part of a Kidney transplant evaluation, is time sensitive, and should only be drawn during the evaluation visit at [facility] Lab. us Jossie King MD LAB BLOOD ORDERABL ES Final Result [facility] Department [place] [address] * (ABNORMAL) TSH (10/27/2023 2:30 AM GEAR FINISHER) Thyroid Stimulating Hormone 13.20(H) 0.30 - 4.20 mcIUnit/mL Blood 10/27/2023 2:30 AM GEAR FINISHER 10/27/2023 2:42 AM GEAR FINISHER us Lorne Mcnulty MD LAB BLOOD ORDERABLES Final Result [facility] [address] Department [place] [address] from Last 3 Months or Most Recently Relevant to Health Maintenance Insurance [facility] MEDICARE ADVANTAGE [facility] MEDIC[facility] Address: [address] [address] [place] [address] [facility] MEDICARE ADVANTAGE TRANSPLANT [employer] MEDICARE RISK IDPA TRANSPLANT [employer] MEDICARE RISK IDPA Advance Directives For more information, please contact: [phone] * Full Code (Latest Code Status on [...] End Date Aditya Castro MD [address] [facility] [place] [address] PCP - General 10/17/19 Alondra Lambert, RN [address] [facility] [address] [place] [address] Metal Container Maker 03/06/24 Hamlet Ortega Jr., MD [address] [place] [address] Consulting Physician Cardiovascular Disease 05/10/24 Leandro Reyes MD [address] [place] [address] Consulting Physician Nephrology 07/30/24
--- OUTSIDE RECORDS SUMMARY | 2024-11-22 17:58 | XMS_ITS | Encounter Summary ---
Author Organization [facility] Address [address], [place] [address] Phone Care Team Providers Care Tiler'S Assistant Name Role Phone Unavailable Primary Care Provider Unavailabl e Reason for Visit * Reason Comments Med Refill Encounter Details Date Type Department Care Team (Late st Contact Info) Description 10/08/2019 Refill [facility] [address] [address] Leandro Reyes MD [address] [address] Social History Tobacco Use Types [...]
--- OUTSIDE RECORDS SUMMARY | 2024-11-22 17:58 | XMS_ITS | Encounter Summary ---
Author Organization [facility] Address [address] [address] Phone Care Team Providers Care Audio Tape Librarian Name Role Phone Unavailable Primary Care Provider Unavailabl e Reason for Visit * Reason Comments Med Refill Encounter Details Date Type Department Care Team (Late st Contact Info) Description 07/04/2019 Refill [facility] [address] [address] Leandro Reyes MD [address] [address] Social History Tobacco Use Types [...]
--- OUTSIDE RECORDS SUMMARY | 2024-11-22 17:58 | XMS_ITS ---
Author Organization [facility] Address [address] [place] [address] Care Team Providers Care Heel Blacker Name Role Phone Aditya Castro MD Primary Care Provider [phone] Alondra Lambert RN Unavailable [phone] Shannon Brock MD, Hamlet P. Unavailable [phone] Leandro Reyes MD Unavailable [phone] Transplant Episode Kidney Candidate [facility] ([place], [place]) [facility] Evaluation began on 05/10/2024 Marked as Active on 05/10/2024 Reason: Evaluation - Standard Kidney CoordinatorAlondra Lambert RN Fax: N/A Email: N/A Scores Score Value Updated Exceptions/Reas ons CPRA Not available EPTS (Calc) 79 11/22/2024 Care Team Name Role Phone Fax Email Alondra Lambert RN Kidney Coordinator [phone] N/A N/A Melany Kelly Primary Side Door Man N/A N/A N/A Chris Richard Film Mounter N/A N/A N/A Events Pre-Transplant Referred: 03/06/2024 Evaluation began: 05/10/2024 Dialysis History Dialysis History Start End Type Comments Center 10/16/2019 Peritoneal [facility] D[facility] Information Center Phone Fax Address [facility] [phone] [address] [facility] [address] [facility] [address]
--- OUTSIDE RECORDS SUMMARY | 2024-11-22 17:58 | XMS_ITS ---
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 Unavailable [phone] Leandro Reyes MD Unavailable [phone] Dialysis Access Sites Type Status Location Placement Date Removal Da te Peritoneal Dialysis Catheter Continuous cycling Active Hemodialysis Cath Double Inactive Right N emiliano (side) - Anterior 06/18/2022 06/25/2022 Hemodialysis Cath Triple Inactive Neck - Anterior 202106/16/2022 Procedures Procedure Name Priority Date/Time Associated Diagnosis Comments CARDIOLOGY DOCUMENT SCAN Routine 09/08/2024 11:26 AM HEAD USHER CARDIOLOGY DOCUMENT SCAN Routine 09/07/2024 11:24 AM HEAD USHER CARDIOLOGY DOCUMENT SCAN Routine 09/05/2024 11:06 AM HEAD USHER HEPATITIS C ANTIBODY Routine 07/29/2024 11:01 AM HEAD USHER End stage renal disease (HCC) EGFR Routine 07/29/2024 11:01 AM HEAD USHER End stage renal disease (HCC) HEMOGLOBIN A1C Routine 07/29/2024 11:01 AM HEAD USHER End stage renal disease (HCC) LIPID PANEL Routine 07/29/2024 11:01 AM HEAD USHER End stage renal disease (HCC) PSA SCREEN Routine 07/29/2024 11:01 AM HEAD USHER End stage renal disease (HCC) TSH Routine 10/27/2023 2:30 AM HEAD USHER from Last 3 Months or Most Recently [...] (25 mcg total) by mouth early childhood worker before breakfast 30 tablet 1 11/04/19 24 [...] mg SL tablet 12/28/19 18 Active peg [id number]-hy ycerin (ARTIFICAL TEARS) 1-0.2-0.2 % ophthalmic solution 1 drop 4 (four) times a day 07/07/20 22 Active potassium chloride ER 20 mEq CR tablet Active Active Problems Problem Noted Date Diagnosed Date End stage renal disease 07/29/2024 Nonrheumatic aortic valve stenosis 11/22/2023 Status post aortic valve replacement 11/22/2023 Status post coronary artery bypass grafting 10/2023 CAD in [place] artery 10/13/2023 Anemia 06/22/2022 Assessment & Plan (06/29/2022 10:12 AM HEAD USHER): Stable, likely 2/2 anemia from ESRD, no [...] 06/22/2022 Assessment & Plan (06/29/2022 10:12 AM HEAD USHER): - Renal consulted, s/p CRRT in the ICU now back on PD. Tolerated well and nephrology following - Trialysis catheter removed - Continue vitamins for renal bone mineral disease. Assessment & Plan (06/28/2022 3:29 PM HEAD USHER): - Renal consulted, s/p CRRT in the [...] 06/22/2022 Assessment & Plan (06/29/2022 10:12 AM HEAD USHER): C/b cardiogenic shock requiring impella in the setting of cath and AHRF 2/2 pulmonary edema, now resolved. TTE demonstrating recovered EF 65% with grade I diastolic dysfunction. - metop as above - continue low dose losartan 12.5mg daily, ok per nephro. Tolerating well - volume management per PD Assessment & Plan (06/28/2022 3:29 PM HEAD USHER): C/b cardiogenic shock requiring impella in the [...] 06/22/2022 Assessment & Plan (06/29/2022 10:12 AM HEAD USHER): Converted to NSR overnight on 06/24. CHADsVASc of 4 not on anticoagulation prior to admission. - cardiology consulted - recommended ongoing rate control - holding off on a/c with high risk for bleeding while on DAPT - reduced metop to 25mg BID in the setting of hypotension, HR 70s NSR Assessment & Plan (06/28/2022 3:30 PM HEAD USHER): Converted to NSR overnight on 06/24. CHADsVASc [...] 08/22/2021 Assessment & Plan (06/29/2022 10:11 AM HEAD USHER): With recurrent chest pain post-cath. He has [...] today Assessment & Plan (06/28/2022 3:30 PM HEAD USHER): With recurrent chest pain post-cath. He has [...] 06/22/2022 Assessment & Plan (06/29/2022 10:11 AM HEAD USHER): Secondary to NSTEMI, s/p Impella since removed on 06/10. Resolved. Assessment & Plan (06/23/2022 4:55 PM CDT): Secondary to NSTEMI, s/p Impella since removed on 06/10. Resolved. Assessment & Plan (06/22/2022 8:22 PM CDT): -Secondary to NSTEMI, s/p Impella since removed on 06/10. Acute hypoxemic respiratory failure 06/09/2022 Assessment & Plan (06/29/2022 10:12 AM HEAD USHER): Secondary to ACS and flash pulmonary edema, [...] (06/10/2022): Added automatically from request for surgery [id number] Abnormal cardiovascular stress test 12/29/2020 Overview (12/29/2020): Added automatically from request for surgery [id number] 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n ative artery of [place] heart with stable angina pectoris ([facility]) 05/23/2017 History of coronary artery [...] 01/18/2013 Assessment & Plan (06/29/2022 10:12 AM HEAD USHER): A1c well controlled on admission. He uses [...] session Assessment & Plan (06/28/2022 3:28 PM HEAD USHER): A1c well controlled on admission. He uses [...] materials from doctor or pharmacy Never 12/01/2023 [facility] Utilities Answer Date Recorded In the past 12 months has th e [employer], gas, oil, or water company threatened to [...] week 08/01/2024 How often do you attend taoism or worship serv ices? Never 08/01/2024 Do [...] any time in the past 12 m [facility], were you homeless or living in a usp (including now)? No 08/01/2024 Personal Safety Answer Date Recorded Have you ever been in or are you currently in a harmful physical or emotional relationship or is someone making you feel afraid or unsafe? 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 Male 3:42 AM HEAD USHER Gender Identity Not on file Sexual Orientation Not on file Last Filed Vital Signs Vital Sign Reading Time Taken Comments Blood Pressure 122/75 07/29/2024 1:00 PM HEAD USHER Pulse 116 07/29/2024 1:00 PM HEAD USHER Temperature 36.8 C (98.2 F) 07/29/2024 1:00 PM HEAD USHER Respiratory Rate 16 12/01/2023 11:1 3 AM CDT Oxygen Saturation 96% 12/01/2023 11: 13 AM CDT Inhaled Oxygen Concentration - - Weight 121.2 kg (267 lb 1.6 oz) 07/29/2024 1:00 PM HEAD USHER Height 177.8 cm (5' 10 ) 07/29/2024 1:00 PM HEAD USHER Body Mass Index 38.32 07/29/2024 1:00 PM HEAD USHER Results * Cardiology Document Scan (09/08/2024 11:26 AM HEAD USHER) Anatomical Region Laterality Modality Other us Juan Christianson MD [facility] CARDIAC SERVICES PROCEDU RES Final Result * Cardiology Document Scan (09/07/2024 11:24 AM HEAD USHER) Anatomical Region Laterality Modality Other us Juan Christianson MD CV CARDIAC SERVICES PROCEDU RES Final Result * Cardiology Document Scan (09/05/2024 11:06 AM HEAD USHER) Anatomical Region Laterality Modality Other us Lalit Machuca MD CV CARDIAC SERVICES PROCEDURES F inal Result * (ABNORMAL) eGFR (07/29/2024 11:01 AM HEAD USHER) eGFR 7(L) >=60 mL/min/1. 73 m2 Comment: [...] reviewed 2021. Blood 07/29/2024 11:0 1 AM HEAD USHER 07/29/2024 11:33 AM HEAD USHER Result [facility] Jossie King MD LAB BLOOD ORDERABL ES Final Result Performing Organization Address [facility] de Phone Number [facility] [employer] [place] [address] * PSA screen (07/29/2024 11:01 AM HEAD USHER) PSA-Total 0.55 <=3.90 ng/mL Comment: Interpretive Data [...] revised 21. Blood 07/29/2024 11:0 1 AM HEAD USHER 07/29/2024 11:33 AM HEAD USHER Narrative [facility] - 07/29/2024 12:39 PM HEAD USHER This lab is being obtained as part of a Kidney transplant evaluation, is time sensitive, and should only be drawn during the evaluation visit at [facility] 3[facility] Lab. Jossie King MD LAB BLOOD ORDERABL ES Final Result Performing Organization Address [facility] Co de Phone Number [facility] [employer] [place] [address] * Hepatitis C antibody Blood (07/29/2024 11:01 AM HEAD USHER) Pathologist [facility] Hep C Ab Nonreactive Nonreactive Comment:Antibodies to HCV no t detected. Does NOT exclude the possibility of recent exposure to HCV. Current interpretive data was last revised on 22 Blood 07/29/2024 11:0 1 AM HEAD USHER 07/29/2024 11:32 AM HEAD USHER Narrative [facility] - 07/29/2024 12:47 PM HEAD USHER This lab is being obtained as part of a Kidney transplant evaluation, is time sensitive, and should only be drawn during the evaluation visit at [address] Lab. Jossie King MD LAB MICROBIOLOGY - GENERAL ORDERABLES Final Result Performing Organization Address [facility] Co de Phone Number [facility] Department [place] [employer] [place] [address] * (ABNORMAL) Hemoglobin A1c (07/29/2024 11:01 AM HEAD USHER) Hgb A1C 9.0(H) 4.0 - 5.6 % Estimated Average Glucose 212 mg/dL [facility] Comment: The ADA recommends reporting an estimated Average Glucose (eAG) with all Hemoglobin A1c results using the equation derived from a study of 507 normal and diabetic adults. Minority populations were underrepresented and children were not included. (Diabetes Care 2020; 43(S1): S66-S76). The eAG is not equivalent to a fasting glucose. Blood 07/29/2024 11:0 1 AM HEAD USHER 07/29/2024 11:34 AM HEAD USHER Narrative [facility] - 07/29/2024 11:53 AM HEAD USHER This lab is being obtained as part of a Kidney transplant evaluation, is time sensitive, and should only be drawn during the evaluation visit at [address] Jossie King MD LAB BLOOD ORDERABL ES Final Result Performing Organization Address [facility] Co de Phone Number [facility] [place] [employer] [place] [address] * (ABNORMAL) Lipid panel (07/29/2024 11:01 AM HEAD USHER) Pathologist [facility] [place] Cholesterol 114 [...] on 2018. Triglycerides 66 <=149 mg/dL [facility] Comment: Interpretive Data Ages < [...] on 2018. HDL 29(L) >=40 mg/dL [facility] Comment: Interpretive Data Ages < [...] 2018. LDL, calculated 71 <=129 mg/dL [facility] Comment: Interpretive Data Ages < [...] NCEP Expert Panel. Circulation 2004;110:227 3. Jose Gonzlaez et al. TYRONE Cardiol. 2019December 19;5(5):540-548. doi: 10.1001/jamacardio.2020.0013 Current Interpretive Data was last revised on 2024. Non-HDL Cholesterol 85 mg/dL [facility] Comment: Interpretive Data Ages < [...] last revised on 2018. Chol/HDL ratio 4 [facility] Blood 07/29/2024 11:0 1 AM HEAD USHER 07/29/2024 11:33 AM HEAD USHER Narrative [facility] - 07/29/2024 12:10 PM HEAD USHER This lab is being obtained as part of a Kidney transplant evaluation, is time sensitive, and should only be drawn during the evaluation visit at [facility] Lab. us Jossie King MD LAB BLOOD ORDERABL ES Final Result [facility] Department [place] [address] * (ABNORMAL) TSH (10/27/2023 2:30 AM HEAD USHER) Thyroid Stimulating Hormone 13.20(H) 0.30 - 4.20 mcIUnit/mL Blood 10/27/2023 2:30 AM HEAD USHER 10/27/2023 2:42 AM HEAD USHER us Lorne Mcnulty MD LAB BLOOD ORDERABLES Final Result [facility] [address] Department [place] [address] from Last 3 Months or Most Recently Relevant to Health Maintenance
--- OUTSIDE RECORDS SUMMARY | 2024-11-22 17:58 | XMS_ITS | Clinical Summary ---
Author Organization [facility] Address [address] [place] [address] Care Team Providers Care Director Toxicology Name Role Phone Aditya Castro MD Primary Care Provider [phone] Alondra Lambert RN Unavailable [phone] Shannon Brock MD, Hamlet P. Unavailable [phone] Leandro Reyes MD Unavailable [phone] Allergies Active Allergy Reactions Criticality Noted Date [...] PUMP: Continue Omnipod 5 insulin pump with fanatixcom G6 CGM at home settings: TIME BASAL [...] 1 tablet (25 mcg total) by mouth quarrying manager before breakfast 30 tablet 1 11/04/19 [...] mg SL tablet 12/28/19 18 Active peg 278-awhpddbicrci-hs ycerin (ARTIFICAL TEARS) 1-0.2-0.2 % ophthalmic solution 1 drop 4 (four) times a day 07/07/20 22 Active potassium chloride ER 20 mEq CR tablet Active Active Problems Problem Noted Date Diagnosed Date End stage renal disease 07/29/2024 Nonrheumatic aortic valve stenosis 11/22/2023 Status post aortic valve replacement 11/22/2023 Status post coronary artery bypass grafting 10/2023 CAD in kake artery 10/13/2023 Anemia 06/22/2022 Assessment & Plan (06/29/2022 10:12 AM GYPSUM CALCINER): Stable, likely 2/2 anemia from ESRD, no [...] 06/22/2022 Assessment & Plan (06/29/2022 10:12 AM GYPSUM CALCINER): - Renal consulted, s/p CRRT in the ICU now back on PD. Tolerated well and nephrology following - Trialysis catheter removed - Continue vitamins for renal bone mineral disease. Assessment & Plan (06/28/2022 3:29 PM GYPSUM CALCINER): - Renal consulted, s/p CRRT in the [...] 06/22/2022 Assessment & Plan (06/29/2022 10:12 AM GYPSUM CALCINER): C/b cardiogenic shock requiring impella in the setting of cath and AHRF 2/2 pulmonary edema, now resolved. TTE demonstrating recovered EF 65% with grade I diastolic dysfunction. - metop as above - continue low dose losartan 12.5mg daily, ok per nephro. Tolerating well - volume management per PD Assessment & Plan (06/28/2022 3:29 PM GYPSUM CALCINER): C/b cardiogenic shock requiring impella in the [...] 06/22/2022 Assessment & Plan (06/29/2022 10:12 AM GYPSUM CALCINER): Converted to NSR overnight on 06/24. CHADsVASc of 4 not on anticoagulation prior to admission. - cardiology consulted - recommended ongoing rate control - holding off on a/c with high risk for bleeding while on DAPT - reduced metop to 25mg BID in the setting of hypotension, HR 70s NSR Assessment & Plan (06/28/2022 3:30 PM GYPSUM CALCINER): Converted to NSR overnight on 06/24. CHADsVASc [...] 08/22/2021 Assessment & Plan (06/29/2022 10:11 AM GYPSUM CALCINER): With recurrent chest pain post-cath. He has [...] today Assessment & Plan (06/28/2022 3:30 PM GYPSUM CALCINER): With recurrent chest pain post-cath. He has [...] 06/22/2022 Assessment & Plan (06/29/2022 10:11 AM GYPSUM CALCINER): Secondary to NSTEMI, s/p Impella since removed on 06/10. Resolved. Assessment & Plan (06/23/2022 4:55 PM CDT): Secondary to NSTEMI, s/p Impella since removed on 06/10. Resolved. Assessment & Plan (06/22/2022 8:22 PM CDT): -Secondary to NSTEMI, s/p Impella since removed on 06/10. 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 He uses [...] session Assessment & Plan (06/28/2022 3:28 PM GYPSUM CALCINER): A1c well controlled on admission. He uses [...] Type Department Care Team Description 11/06/2024 Documentation [facility] [address] [facility] [address] [facility] [address] Mailstop [id number] [place] [address] Melany Kelly Appointment/Schedules 11/05/2024 Telephone [facility] [address] [facility] [address] [facility] [address] Mailstop [id number] [place] [address] Alondra Lambert RN 09/12/2024 Orders Only [facility] [address] [place] [address] Lalit Machuca MD from Last [...] In the past 12 months has e [employer], oil, or water [employer] threatened to shut off services in your home? No 08/01/2024 Social Connection and Isolation Panel [NHANES] A nswer Date Recorded In a typical week, how many times do you talk on the phone with family, friends, or neighbors? Twice a week 08/01/2024 How often do you get together with friends or re latives? Once a week 08/01/2024 How often do you attend sikh or religion serv ices? Never 08/01/2024 Do you belong [...] any time in the past 12 [facility], were you homeless or living in [...] on file Legal Sex Male 3:42 AM GYPSUM CALCINER Gender Identity Not on file Sexual Orientation Not on file Obstetrics History Last Filed Vital Signs Vital Sign Reading Time Taken Comments Blood Pressure 122/75 07/29/2024 1:00 PM GYPSUM CALCINER Pulse 116 07/29/2024 1:00 PM GYPSUM CALCINER Temperature 36.8 C (98.2 F) 07/29/2024 1:00 PM GYPSUM CALCINER Respiratory Rate 16 12/01/2023 11:1 3 AM CDT Oxygen Saturation 96% 12/01/2023 11: 13 AM CDT Inhaled Oxygen Concentration - - Weight 121.2 kg (267 lb 1.6 oz) 07/29/2024 1:00 PM GYPSUM CALCINER Height 177.8 cm (5' 10 ) 07/29/2024 1:00 PM GYPSUM CALCINER Body Mass Index 38.32 07/29/2024 1:00 PM GYPSUM CALCINER Plan of Treatment Health Maintenance Due Date Last Done Comments Albumin Creatinine Ratio, Urine 1968 Colon Cancer Screening-Colonoscopy 1968 Depression Screening 1968 Foot Exam 1968 Dilated Eye Exam 1978 Regular Well Visit/Exam 18-64 1986 Zoster Vaccine (1 of 2) 2018 Covid-19 Vaccine (3 - 2023-2 5 season) 2024 09/21/2021, 11/04/2020 TSH Level 10/26/2024 10/27/2023, 03/21/2017 Hemoglobin A1C 01/27/2025 07/29/2024, 09/22, 06/04/2022, Additional history exists Pneumococcal vaccine <65 (3 of 3 - PCV20 or PCV21) 02/11/2025 02/12/2020, 12/30/2019, 08/26/2019 Influenza Vaccine (Season Ended) 2025 06/27/2023, 07/19/2022, 06/04/2022, Additional history exists Lipid Panel 07/29/2025 07/29/2024, 09/22, 06/05/2022, Additional history exists eGFR 07/29/2025 07/29/2024, 10/19, 11/02/2023, Additional history exists Prostate Cancer Screening-PSA 07/29/2026 07/29/2024 DTaP/Tdap/Td Vaccine (4 - Td or Tdap) 10/21/2029 10/22/2019, 09/02/2017, 08/30/2016 Hepatitis B Screening Completed 07/29/2024 Hepatitis C Screening Completed 07/29/2024 , 03/23/2017, 03/26/2015 Medical Devices Implanted Type Area International Account Manager Device Identifier Shelf Expiration Date Model / Serial / Lot Kyle Vascular Device Clsr Perclose Prostyle Sut-Mediatd Closure-Repair Sys 67829-47 - [id number] Implanted:Qty: 1 on 06/10/2022 by Champ Osborne MD PhD at [facility] Other - see comments Right: Femoral [employer] Vascular 01/19/2024 [id number] / / [id number] [employer] Mary Synergy Xd Monorail 2.5mm 48mm 144cm Delivery System 1 Access [id number] - [id number] Implanted:Qty: 1 on 06/07/2022 by Champ Osborne MD PhD at [facility] Stent [employer] Mary 10/27/2023 [id number] / / [id number] [employer] Mary Synergy Xd Monorail 3mm 24mm 144cm Delivery System 1 Access Port [id number] - [id number] Implanted:Qty: 1 on 06/07/2022 by Champ Osborne MD PhD at [facility] Stent [employer] Mary 07/28/2023 [id number] / / [id number] [employer] Mary Synergy Xd Monorail 2.5mm 12mm 144cm Delivery System 1 Access [id number] - [id number] Implanted:Qty: 1 on 06/07/2022 by Champ Osborne MD PhD at [facility] Stent [employer] Mary 05/03/2023 [id number] / [id number] / [id number] Dai Mary [id number] Device Closure Angio-Seal Vip Bondek-Plus Polyglyd L70 Cm Od6 Fr Odsec.035 In Vascular - [id number] Implanted:Qty: 1 on 01/21/2021 by Hamlet Ortega Jr., MD at [facility] Left: Groin [employer] Mary [id number] / / Kyle Vascular Device Clsr Perclose Prostyle Sut-Mediatd Closure-Repair Sys 12450-34 - [id number] Implanted:Qty: 1 on 06/07/2022 by Champ Osborne MD PhD at [facility] [employer] 01/19/2024 13488-65 / [id number] Kyle V[employer] Device Clsr Perclose Prostyle Sut-Mediatd Closure-Repair Sys 05618-49 - [id number] Implanted:Qty: 1 on 06/07/2022 by Champ Osborne MD PhD at [facility] Kyle Vascular 11/19/2023 98873-88 / [id number] Bard Access Systems Power-Trialysis 13fr 30cm 3 Lumen Kink Resistance Symmetric Tip [id number] - [id number] Implanted:Qty: 1 on 06/07/2022 by Champ Osborne MD PhD at [facility] Right: Jugular Ramirez Chapito 07/20/2024 [id number] / / [id number] Abi[employer] Inc Impella Cp Percutaneous Left Ventricular Assist Device 7578-2316 - [id number] Implanted:Qty: 1 on 06/07/2022 by Champ Osborne MD PhD at [facility] Left: Ventricle [employer] Inc [id number] / / Bard Access Systems Power-Trialysis 13fr 20cm 3 Lumen Short Term Dialysis Straight [id number] - [id number] Implanted:Qty: 1 on 06/18/2022 at [facility] Ramirez [place] 07/20/2024 [id number] / / [id number] Rl Biomet Inc Screw Bone Slf Drl Full Thread Locking 3.5x14mm Ti 100.035.14 - [id number] Implanted:Qty: 6 on 10/17/2023 by Lorne Mcnulty MD at [facility] N/A: Sternum Rl Bi[employer] Inc 100.035.1 4 / / Rl Biomet Inc Plate Bone Low Profile 6 Hole H Shape Sternum Ti 115.102.06 - [id number] Implanted:Qty: 2 on 10/17/2023 by Lorne Mcnulty MD at [facility] N/A: Sternum Rl [employer] Inc 115.102.0 6 / / Rl [employer] Inc Plate Bone Low Profile 6 Hole O Shape Sternum Ti 115.104.06 - [id number] Implanted:Qty: 1 on 10/17/2023 by Lorne Mcnulty MD at [facility] N/A: Sternum [employer]l [employer] Inc 115.104.0 6 / / On-X Intrnl Valve Coronary Aortic Mechanical On X 25mm Onxane-25 - [id number] - [id number] Implanted:Qty: 1 on 10/17/2023 by Lorne Mcnulty MD at [facility] N/A: Heart On-X Intrnl 01/22/2028 ONXANE-25 / [id number] / Rl Biomet Inc Screw Bone Slf Drl Full Thread Locking 3.5x18mm Ti 100.035.18 - [id number] Implanted:Qty: 12 on 10/17/2023 by Lorne Mcnulty MD at [facility] N/A: Sternum Rl [employer] Inc 100.035.1 8 / / Explanted Type Area International Account Manager Device Identifier Shelf Expiration Date Model / Serial / Lot Bard Peripheral Vascular Bard .25x.25in [employer] Thk1.65mm Square P[place]get Cardiovascular Ptfe [id number] - [id number] Explanted:Qty: 1 on 10/17/2023 by Lorne Mcnulty MD at [facility] N/A: Heart Bard Peripheral Vascular 05/18/2026 [id number] / / Procedures Procedure Name Priority Date/Time Associated Diagnosis Comments CARDIOLOGY DOCUMENT SCAN Routine 09/08/2024 11:26 AM GYPSUM CALCINER CARDIOLOGY DOCUMENT SCAN Routine 09/07/2024 11:24 AM GYPSUM CALCINER CARDIOLOGY DOCUMENT SCAN Routine 09/05/2024 11:06 AM GYPSUM CALCINER HEPATITIS C ANTIBODY Routine 07/29/2024 11:01 AM GYPSUM CALCINER End stage renal disease (HCC) EGFR Routine 07/29/2024 11:01 AM GYPSUM CALCINER End stage renal disease (HCC) HEMOGLOBIN A1C Routine 07/29/2024 11:01 AM GYPSUM CALCINER End stage renal disease (HCC) LIPID PANEL Routine 07/29/2024 11:01 AM GYPSUM CALCINER End stage renal disease (HCC) PSA SCREEN Routine 07/29/2024 11:01 AM GYPSUM CALCINER End stage renal disease (HCC) TSH Routine 10/27/2023 2:30 AM GYPSUM CALCINER from Last 3 Months or Most Recently Relevant to Health Maintenance Results * Cardiology Document Scan (09/08/2024 11:26 AM GYPSUM CALCINER) Anatomical Region Laterality Modality Other Juan Christianson MD CV CARDIAC SERVICES PROCEDU RES Final Result * Cardiology Document Scan (09/07/2024 11:24 AM GYPSUM CALCINER) Anatomical Region Laterality Modality Other us Juan Christianson MD CV CARDIAC SERVICES PROCEDU RES Final Result * Cardiology Document Scan (09/05/2024 11:06 AM GYPSUM CALCINER) Anatomical Region Laterality Modality Other Lalit Machuca MD CV CARDIAC SERVICES PROCEDURES F inal Result * (ABNORMAL) eGFR (07/29/2024 11:01 AM GYPSUM CALCINER) eGFR 7(L) >=60 mL/min/1. 73 m2 Comment: [...] reviewed 2021. Blood 07/29/2024 11:0 1 AM GYPSUM CALCINER 07/29/2024 11:33 AM GYPSUM CALCINER Jossie King MD LAB BLOOD ORDERABL ES Final Result Performing Organization Address [facility] Co de Phone Number [facility] [place] [address] * PSA screen (07/29/2024 11:01 AM GYPSUM CALCINER) PSA-Total 0.55 <=3.90 ng/mL Comment: Interpretive Data [...] revised 21. Blood 07/29/2024 11:0 1 AM GYPSUM CALCINER 07/29/2024 11:33 AM GYPSUM CALCINER Narrative [facility] - 07/29/2024 12:39 PM GYPSUM CALCINER This lab is being obtained as part of a Kidney transplant evaluation, is time sensitive, and should only be drawn during the evaluation visit at [address] Lab[address] Jossie King MD LAB BLOOD ORDERABL ES Final Result Performing Organization Address [facility] de Phone Number [facility] Department [place] [address] * Hepatitis C antibody Blood (07/29/2024 11:01 AM GYPSUM CALCINER) Hep C Ab Nonreactive Nonreactive Comment:Antibodies to HCV no t detected. Does NOT exclude the possibility of recent exposure to HCV. Current interpretive data was last revised on 22 Blood 07/29/2024 11:0 1 AM GYPSUM CALCINER 07/29/2024 11:32 AM GYPSUM CALCINER Narrative [facility] - 07/29/2024 12:47 PM GYPSUM CALCINER This lab is being obtained as part of a Kidney transplant evaluation, is time sensitive, and should only be drawn during the evaluation visit at [address] Lab. Jossie King MD LAB MICROBIOLOGY - GENERAL ORDERABLES Final Result Performing Organization Address [facility] de Phone Number [facility] Department [place] [address] * (ABNORMAL) Hemoglobin A1c (07/29/2024 11:01 AM GYPSUM CALCINER) Hgb A1C 9.0(H) 4.0 - 5.6 % Estimated Average Glucose 212 mg/dL [facility] Comment: The ADA recommends reporting an estimated Average Glucose (eAG) with all Hemoglobin A1c results using the equation derived from a study of 507 normal and diabetic adults. Minority populations were underrepresented and children were not included. (Diabetes Care 2020; 43(S1): S66-S76). The eAG is not equivalent to a fasting glucose. Blood 07/29/2024 11:0 1 AM GYPSUM CALCINER 07/29/2024 11:34 AM GYPSUM CALCINER Narrative [facility] - 07/29/2024 11:53 AM GYPSUM CALCINER This lab is being obtained as part of a Kidney transplant evaluation, is time sensitive, and should only be drawn during the evaluation visit at [address] Lab[address] Jossie King MD LAB BLOOD ORDERABL ES Final Result Performing Organization Address [facility] de Phone Number [facility] Department [place] [address] * (ABNORMAL) Lipid panel (07/29/2024 11:01 AM GYPSUM CALCINER) Cholesterol 114 30 - 199 mg/dL Comment: [...] on 2018. Triglycerides 66 <=149 mg/dL [facility] Comment: Interpretive Data Ages < or [...] revised on 2018. HDL 29(L) >=40 mg/dL [facility] Comment: Interpretive Data Ages < or = [...] on 2018. LDL, calculated 71 <=129 mg/dL [facility] Comment: Interpretive Data Ages < or = [...] on 2024. Non-HDL Cholesterol 85 mg/dL [facility] Comment: Interpretive Data Ages < or [...] revised on 2018. Chol/HDL ratio 4 [facility] Blood 07/29/2024 11:0 1 AM GYPSUM CALCINER 07/29/2024 11:33 AM GYPSUM CALCINER Narrative [facility] - 07/29/2024 12:10 PM GYPSUM CALCINER This lab is being obtained as part of a Kidney transplant evaluation, is time sensitive, and should only be drawn during the evaluation visit at [facility] Lab. us Jossie King MD LAB BLOOD ORDERABL ES Final Result Performing Organization Address City/[facility]/ZIP Co de Phone Number [facility] Department [place] [address] * (ABNORMAL) TSH (10/27/2023 2:30 AM GYPSUM CALCINER) Thyroid Stimulating Hormone 13.20(H) 0.30 - 4.20 mcIUnit/mL Blood 10/27/2023 2:30 AM GYPSUM CALCINER 10/27/2023 2:42 AM GYPSUM CALCINER us Lorne Mcnulty MD LAB BLOOD ORDERABLES Final Result [facility] [address] [place] [address] from Last 3 Months or Most Recently Relevant to Health Maintenance Insurance [facility] MEDICARE ADVANTAGE [facility] MEDICARE ADVANTAGE TRANSPLANT [employer] MEDICARE RISK [employer] TRANSPLANT [employer] MEDICARE RISK [employer]PA Advance Directives For more information, please contact: [phone] * Full Code (Latest Code Status on File) Date Activated Date Inactivated Comments 10/13/2023 11:32 PM 11/03/2023 11:42 PM * Full Code Date Activated Date Inactivated Comments 06/05/2022 6:17 AM 06/29/2022 6:20 PM * Full Code Date Activated Date Inactivated Comments 06/05/2022 4:43 AM 06/05/2022 4:43 AM * Full Code Date Activated Date Inactivated Comments 06/04/2022 9:55 PM 06/05/2022 4:43 AM Care Teams Director Toxicology Relationship Specialty Start Date End Date Aditya Castro MD [address] [place] [address] PCP - General 10/17/19 Alondra Lambert, RN [address] [facility] [address] [place] [phone] Social Media Intern 03/06/24 Hamlet Ortega Jr., MD [address] [place] [address] [phone] Consulting Physician Cardiovascular Disease 05/10/24 Leandro Reyes MD [address] [place] [address] Consulting Physician Nephrology 07/30/24
--- OUTSIDE RECORDS SUMMARY | 2024-11-22 17:58 | XMS_ITS | Encounter Summary ---
Author Organization [facility] Address [address] [place] [id number] Phone Care Team Providers Care Program Attendant Name Role Phone Unavailable Primary Care Provider Unavailabl e Reason for Visit * Reason Comments Med Refill Encounter Details Date Type Department Care Team (Late st Contact Info) Description 01/25/2019 Refill [facility] [address] [facility] [address] [place] [address] Leandro Reyes MD [address] [address] Social History Tobacco Use Types [...]
--- OUTSIDE RECORDS SUMMARY | 2024-11-22 17:58 | XMS_ITS | Clinical Summary ---
Author Organization [facility] Address [address] [facility] [facility] [place] [address] Care Team Providers Care Director Of Infection Prevention Name Role Phone Aditya Castro Primary Care Provider Unavailab le Source Comments [facility],non-owned Affiliates and Associated Physician Practices is amultiple site organization consisting of ambulatory clinics and hospital sitesin [place], [place], [place] and [place]. This disclosure is being madepursuant to the Care Everywhere program and may not contain all information available regarding this patient. Last updated 18.[facility] Allergies Active Allergy Reactions Criticality Noted Date [...] needed 01/25/2019 Active vitamin D, ergocalciferol, (DRISDOL) 63506 units capsule Take 50,000 Units by mouth [...] fluticasone propionate (FLONASE) 50 MCG/ACT nasal spray [place] 1 spray into each nostril once daily 04/24/2019 Active epoetin (PROCRIT) 16167 UNIT/ML injection Inject subcutaneously every 14 days [...] were not included. Juvenal Garvin 1970 Referring Transportation Refrigeration Technician: Leandro Reyes Dialysis Info: Type: PD Time: 160 days (11/05/2019) Blood Type: A Body mass index is 37.8 kg/m . ALERTS Asphalt Still Operator: Vashti Lizama NP Past Medical History: Diagnosis Date Anemia Arthritis Arthropathy osteo. back and knees see Dr. Cierra ELIAS (coronary artery disease) Community acquired pneumonia 2017 [facility] hospitalized with double pneumonia Congestive heart failure Coronary artery disease Diabetes mellitus type 1 teens dx when he was 13. Insulin since he was dx. Insulin pump currently with dexacom. Vashti Lizama FRAME ALIGNER is instructor technical training. DM (diabetes mellitus) TYPE 1 DVT (deep venous thrombosis) 2017 [facility]. ESRD on peritoneal dialysis Gout History of blood transfusion 2017 during admission for [place] HLD (hyperlipidemia) HTN (hypertension) Hypercholesteremia 5 years on med Hypertension 30's on medications. Kidney disease Myocardial infarction 2017 [facility]. Stent x1 placed. Neuropathy feet Obstructive [...] file Gets together: Not on file Attends latter-day service: Not on file Active member of [...] 07/02/2020: Committee Discussion Details: Pt brought to [facility] to discuss his cardiac workup. Team [...] stress. Stress ejection fraction estimated at 83%. [facility]: 08/26/2019 NM exercise Stress: 04/16/2019 04/17/2017 [...] Impression: It is the impression of this certified social workers in health care that Juvenal Garvin has several positive factors [...] advised of safety concerns regarding immunosuppressants. Plan: wafer production lead worker to provide supportive services as needed. Patient appears to be a reasonable candidate for transplant from a psychosocial perspective. -Post transplant arrangement forms are needed prior to being listed. Psychiatric Consult Recommended: No Transplant Contact Assembler: Radha Roper LCSW RD:05/14/2020 BMI= 40.0, Class [...] Comments Blood Pressure 140/60 07/13/2020 1:30 PM SUPERVISOR GROUNDS Pulse 65 07/13/2020 1:30 PM SUPERVISOR GROUNDS Temperature 36.1 C (97 F) 07/13/2020 1:30 PM SUPERVISOR GROUNDS Respiratory Rate 20 07/13/2020 1:30 PM SUPERVISOR GROUNDS Oxygen Saturation 95% 07/13/2020 1:30 PM SUPERVISOR GROUNDS Inhaled Oxygen Concentration - - Weight 134.3 kg (296 lb) 07/13/2020 1:30 PM SUPERVISOR GROUNDS Height 176.5 cm (5' 9.5 ) 07/13/2020 1:30 PM SUPERVISOR GROUNDS Body Mass Index 43.08 07/13/2020 1:30 PM SUPERVISOR GROUNDS Plan of Treatment Health Maintenance Due Date [...] 04/26/2019, Additional history exists COVID-19 VACCINE ( season) 2024 DEPRESSION SCREENING 08/21/2024 MEDICARE AWV CALENDAR YEAR 2024 INFLUENZA VACCINE (Season Ended) 2025 05/16/2019, 07/11/2016 COLONOSCOPY - COLON CA SCREENING 03/08/2029 03/08/2019 [...] y 1 & 2 Non-reacti ve Non-react binaca 05/14/2020 11:49 AM CDT [facility] Comment:Neither HIV-1 p24 An tigen nor HIV-1/HIV-2 Antibodies are detected. Blood BLOOD SPECIMEN / Unknown Lab Venipuncture / Unknown 05/14/2020 10:18 AM CDT 05/14/2020 10:57 AM CDT Glenny Martin MD LAB - HEMATOLOG Y ORDERABLES [facility] [place] [id number] [place] [address], [facility] [phone] * (ABNORMAL) COMPREHENSIVE METABOLIC PANEL (05/14/2020 10:18 [...] 1.1 - 2.3 05/14/2020 11:41 AM CDT [facility] eGFR 11(L) >60 mL/min/1.7 3 m2 05/14/2020 11:41 AM CDT [facility] Blood BLOOD SPECIMEN / Unknown Lab Venipuncture / Unknown 05/14/2020 10:18 AM CDT 05/14/2020 10:55 AM CDT Glenny Martin MD LAB - CHEMISTRY ORDERABLES [facility] [address] [place] [address], [place] [phone] * HEPATITIS C ANTIBODY (05/14/2020 10:18 AM CDT) Hepatitis C Antibody Non-react bianca Non-reac tive 05/14/2020 11:49 AM CDT [facility] Comment:Hepatitis C Antibody screen indicates no [...] Glenny Martin MD LAB - CHEMISTRY ORDERABLES [address] [address], [place] [phone] from Last 3 Months or Most Recently Relevant to Health Maintenance Insurance Payer Benefit Plan / Group Subscriber ID Effective Dates Phone Address Type AETNA MEDICARE ADV AETNA MEDICARE ADV HMO/PPO/PFFS [id number] Effective for all dates [address] [place] [address] Medicare-[facility] MEDICAID SPENDDOWN [facility] MEDICAID SPENDDOWN [facility] Effective for all dates [address] [facility] [address] [address] [place] [address] Medicaid AETNA MEDICARE ADV AETNA MEDICARE ADV HMO/PPO/PFFS [id number] Effective for all dates [address] [place] [address] Medicare-Or naged Care MEDICAID SP[employer]DOWN [facility] MEDICAID SPENDDOWN [facility] Effective for all dates [address] [place] [address] Medicaid AETNA MEDICARE ADV AETNA MEDICARE ADV HMO/PPO/PFFS [id number] Effective for all dates [address] [place] [address] Medicare-Or naged Care MEDICAID SPENDDOWN [facility] MEDICAID SPENDDOWN [facility] Effective for all dates [address] [place] [address] Medicaid MEDICARE S MEDICARE PART B [id number] 08/21/2019-Pres ent [address] [address] [place] [address] Medicare MEDICAID - OUT OF [facility] MEDICAID - [place] PUBLIC AID [id number] 08/21/2019-Pres ent [address] [address] [place] [address] Medicaid MEDICARE MEDICARE PART A AND B [id number] 08/21/2019-Pres ent [address] [place] [address] Medicare MEDICAID - [place] - [place] MED[place] [id number] Effective for all dates [address] [address] [place] [address] Medicaid [place] Advance Directives * Full Code (Latest Code Status on File) Date Activated Date Inactivated Comments 11/22/2018 9:24 AM 11/23/2018 7:55 PM Care Teams Director Of Infection Prevention Relationship Specialty Start Date End Date Aditya Castro Update Information PCP - General 03/06/19
--- OUTSIDE RECORDS SUMMARY | 2024-11-22 17:58 | XMS_ITS | Encounter Summary ---
Author Organization [facility] Address [address], [place] [address] Phone Care Team Providers Care Window Shade Cutter Name Role Phone Unavailable Primary Care Provider Unavailabl e Reason for Visit * Reason Comments Med Refill Encounter Details Date Type Department Care Team (Late st Contact Info) Description 02/24/2020 Refill [facility] [address] [address] Leandro Reyes MD [address] [address] Social History Tobacco Use Types [...]
--- OUTSIDE RECORDS SUMMARY | 2024-11-22 17:58 | XMS_ITS | Continuity of Care Document ---
Author Organization [facility] Address [address] [place] [address] [place] [address] Phone Care Team Providers Care Rn Teacher Name Role Phone Carlos Garcia Unavailable Unavailable Advance Directives Directive Yes / No Effective Date File Name No Information Encounters Encounter Description Practice Location Reason(s) For Visit Diagnoses Date Provider Providers Copied on Encounter [facility], [address], [place], [place], [id number], [place] tel:[phone] [facility] No Information Radha Gonzalez. [address] [place], [place], [facility], [place]. tel:[phone] Referring Provider: Yannick Remy, [facility] [address], [place], [place], [facility]. tel:[phone] Family History Family Member Type Diagnosis Age At Onset No Information Payers Payer name Insurance type Covered constitution party ID Authoriza tion(s) Medicaid [facility] [id number] Social History Type Description Quantity Date Captured [...]
--- OUTSIDE RECORDS SUMMARY | 2024-11-22 18:00 | XMS_ITS | Encounter Summary ---
Author Organization [facility] Address [address] [place] [address] Care Team Providers Care Design Studio Consultant Name Role Phone Aditya Castro MD Primary Care Provider [phone] Encounter Details Date Type Department Care Team (Late st Contact Info) Description 04/15/2019 Telephone [facility] Oncology and Hematology - [place] [address] [facility] [address] [place] [address] Fernando Schmid MD [address] [facility] [address] [place] [address] Social History Tobacco Use Types [...] on filedocumented in this encounter Care Teams Design Studio Consultant Relationship Specialty Start Date End Date Aditya Castro MD PCP - General Student in an Organized Health Care Education/Training Program 09/11/18 documented as of this encounter
--- OUTSIDE RECORDS SUMMARY | 2024-11-22 18:00 | XMS_ITS | CONTINUITY OF CARE DOCUMENT ---
Author Name archana magaña Address Unknown Organization [facility] Address [address] [facility] [address] [place] [address] Phone [phone] Care Team Providers Care Natural Fabricator Name Role Phone Shannon ARNOLD, Hamlet Unavailable [phone] STEPHANIE CORREA MD Unavailable [phone] STEPHANIE CORREA MD Unavailable PROBLEMS Condition Status Date Provider Notes CABG post active Annemarie Connelly RN Valve replacement active Annemarie Connelly RN termite renewal inspector anticoagulant therapy active Annemarie Connelly RN Atrial [...] In-person encounter Office Visit Hamlet Ortega MD [place] [facility] - In-person encounter Office Visit Hamlet Ortega MD [facility] Atrial Fibrillation - In-person encounter Office Visit Hamlet Ortega MD [facility] - In-person encounter Office Visit Hamlet Ortega MD [place] [facility] C A B G:Valve SurgeryCKD stage ESRD on dialysis GFR <15 - In-person encounter Office Visit Hamlet Ortega MD [place] [facility] - In-person encounter Office Visit Hamlet Ortega MD [facility] - In-person encounter Office Visit Hamlet Ortega MD [facility] OverweightAortic insufficiency - In-person encounter Office Visit Hamlet Ortega MD [place] [facility] - In-person encounter Office Visit Hamlet Ortega MD [place] [facility] - In-person encounter Office Visit Hamlet Ortega MD [place] [facility] - In-person encounter Office Visit Hamlet Ortega MD [place] [facility] - In-person encounter Office Visit [place] Ortega MD [place] [facility] - In-person encounter Office Visit [place] Ortega MD [place] [facility] - In-person encounter Office Visit [place] Ortega MD [place] [facility] - In-person encounter Office Visit Hamlet Ortega MD [facility] - In-person encounter Office Visit Hamlet Ortega MD [place] [facility] - In-person encounter Office Visit Hamlet Ortega MD [place] [facility] - In-person encounter Office Visit Hamlet Ortega MD [place] [facility] - In-person encounter Office Visit Hamlet Ortega MD [place] [facility] - In-person encounter Office Visit Hamlet Ortega MD [place] [facility] Dizziness - In-person encounter Office Visit Hamlet Ortega MD [place] [facility] - In-person encounter Office Visit Hamlet Ortega MD [facility] Office - In-person encounter Office Visit Hamlet Ortega MD [place] [facility] - In-person encounter Office Visit Hamlet Ortega MD [place] [facility] Family History of Hypertension:Coronary artery diseaseShortness [...] MD blood pressure, diastolic 79 mm[Hg] [facility], systolic 169 mm[Hg] [facility] oxygen saturation, oximetry 100 % [facility] pulse rate 94 /min [facility] weight E&M 281 [lb_av] [facility] height E&M 70 [in_i] [facility] blood pressure, diastolic 101 mm[Hg] [facility]o [facility] blood pressure, systolic 157 mm[Hg] Vanna garay Major oxygen saturation, oximetry 96 % [facility] pulse rate 122 /min [facility] blood pressure, cuff size regular Chapo dena [facility] Body Mass Index (Ratio) 38.62 kg/m2 Zoë on [facility] weight in kilograms E&M 122.11 kg Zoë on [facility] weight E&M 269.2 [lb_av] [facility] height E&M 70 [in_i] Chapoaromegan [...] Location coagulation managed by Robin Villarreal RN Robin Villarreal RN international normalized ratio (INR) 3.7 Robin Villarreal RN Normal coagulation managed by [...] Taylor Normal coagulation managed by Arabella Taylor RN Arabella Taylor coagulation managed by Robin Villarreal RN international normalized ratio (INR) 1.6 Robin Villarreal RN Normal coagulation managed by Pamela Nicole RN Pamela Nicole RN international normalized ratio (INR) 2.1 Rayna Rodriguez RN Normal coagulation managed by Pamela Nicloe RN Pamela Nicole RN international normalized ratio [...] RN coagulation managed by Robin Arevalos RN international [...] LinkLogic 3.5-5.2 sodium, serum 140 mmol/L LinkLogic [phone]/03/ 21 urea nitrogen/creatini ne ratio, serum 17 [...] Not Estab. platelet count 261 X10E3/UL LinkLogic [phone]/03/ 21 red blood cell distribution width 13.9 [...] by mouth once a day Arabella Taylor termite renewal inspector anticoagulant therapy warfarin 3 mg tablet completed Take 1 tablet by mouth every evening EXCEPT on Mon and Mon , take 1 and one half tablet. (4.5 mg) - Annemarie Connelly RN [facility] anticoagulant therapy warfarin 2 mg tablet completed 1 tab on 01/19, 01/20, 01/21, 01/22 - Robin Villarreal RN levothyroxine 25 mcg tablet active Take 1 tablet by mouth every morning Annemarie Connelly RN warfarin 3 mg tablet completed Take 1 tablet by mouth every evening EXCEPT on Mon and take one half tablet. (1.5 mg) - Moustapha Koehler RN termite renewal inspector anticoagulant therapy warfarin 2 mg tablet completed [...] 1 tablet three times a week Lolisstlian Ab gemfibrozil 600 mg tablet completed 1 tablet twice a day - Nida Hay ALL DAY ALLERGY 10 MG ORAL CAPSULE active 1 tablet once a day Chastity Ab calcitriol 0.25 mcg capsule active 1 capsule three times a week Lolisstity Ab furosemide 80 mg tablet completed Take [...] by mouth once a day - Saniya Godwin ISOSORBIDE MONONITRATE 60MG ER TABS completed TAKE [...] ams social history E&M Marital Statu s: Michael [...] Angina (inactive) Management Plan continue current therapy Hamelt Ortega MD HRA, CV Assess/Plan, Angina (inactive) Management Plan continue current therapy Hamlet Ortega MD FAMILY HISTORY Family Member Condition Father Family History of Co ronary Artery Disease: Father Family History of Hy pertension: INSURANCE PROVIDERS Payer name Policy type / Coverage type Carriere red republican ID [facility] COMPLETE CARE [id number] (PPO C-SNP) Commercial insurance company [id number] [employer] FAMILY [employer] Medicaid 3 [id number] ADVANCE DIRECTIVES Name Date DISCUSSED - NO DECISION MADE TREATMENT PLAN Date Name Performer [id number],S, Hamlet guzman [place] [id number],S, Hamlet [place] [id number],S, Hamlet Ramada n [place] [id number],S, Hamlet Ramada n [place] [id number],S, Hamlet Ramada n [place] [id number],S, Hamlet Ramada n [place] [id number],S, Hamlet Ram[place] n [place] [id number],S, Hamlet [place] [id number],S, Hamlet [place] [id number],S, Hamlet [place] [id number],S, Hamlet Ram[place] n [place] [id number],S, Hamlet Ramada n [place] [id number],S, Hamlet Ram[place] n [place] [id number],C,T he patient is using BiPAP on a regular basis. The patient has been benefiting from therapy and should continue use. Hamlet Ramadan [place] [id number],S, Hamlet Ramada n [place] [id number],S, Hamlet Ramada n [place] [id number],S, Hamlet Ramada n [place] [id number],S, Hamlet Ram[place] n [place] [id number],S, Hamlet [place] n [place] [id number],S, Hamlet [place] n [place] [id number],S, Hamlet [place] n [place] [id number],S, Hamlet Ramada n [place] [id number],S, Hamlet Bloom n [id number],S, Hamlet Ramada n [id number],S, Hamlet Ramada n [id number],S, Hamlet Ramada n [id number],S, Hamlet Ramada n [id number],C,T he patient is using CPAP on a regular basis. The patient has been benefiting from therapy and should continue use. Hamlet Shannon ARNOLD [id number],B, Hamlet Bloom megan ARNOLD [id number],S, Hamlet Bloom n [id number],B, Hamlet Loredodewayne guzman [place] [id number],B, Hamlet Ramdewayne n [place] [id number],S, Hamlet Ramada n [place] [id number],S, Hamlet Ramada n [place] [id number],B, Hamlet [place] n [place] [id number],S, Hamlet [place] n [place] [id number],S,L ast stress 01/08 had some abnormalities that fit with known coronary anatomy. No significant symptoms at this point. Will follow closely, no cath at this point. Patient is encouraged to increase activity as tolerated, particularly exercise in form of walking on treadmill. Hamlet Ortega MD [id number],B, Hamlet Bloom megan ARNOLD [id number],S, Hamlet Ramdewayne n [id number],S, Hamlet Ramada n [id number],C,T he patient is using CPAP on a regular basis. The patient has been benefiting from therapy and should continue use. Hamlet Ortega MD [id number],S, Hamlet guzman MD [id number],S,L ast stress 01/08 had some abnormalities that [...] to see if EF has improved. Reviewed [facility] records from surgery and tests. Hamlet [...] Hamlet Shannon ARNOLD Cardiology Hamlet Ortega MD Electrophysiology Hamlet Ortega [...] Ortega MD Cardiology Hamlet Ortega MD Cardiology Hamlettim Ortega MD Cardiology Hamlettim Ortega MD Cardiology Hamlettim Ortega MD Cardiology:Increased SOB. Will c heck ECHO and stress. Hamlet Ortega MD Cardiology follow up Hamlet cantu MD Cardiology follow up Hamlet cantu MD Cardiology follow up Hamlet cantu MD Cardiology follow up Hamlet cantu MD Cardiology Hamlet Ortega MD Cardiology Hamlet Ortega MD Cardiology Hamlettim Ortega MD Cardiology Hamlettim Ortega MD Cardiology Hamlet Ortega MD Cardiology:Needs cath Hamlet uribe MD Cardiology follow up Hamlet cantu MD Cardiology follow up Hamlet cantu MD Cardiology follow up Hamlet cantu MD Cardiology follow up Hamlet cantu MD Cardiology follow up Hamlet cantu MD Cardiology follow up Hamlet cantu MD Cardiology follow up Hamlet Ramad an MD Cardiology Hamlet Ortega MD Cardiology Hamlet [...] Ortega MD completed Phone Anti-Coag Management Robin Villarrael RN completed Phone Anti-Coag Management Robin Villarreal [...] MD completed Jacob Newberry MD complete d Jacob Villarreal RN completed Jacob Almonte MD complet [...]
--- OUTSIDE RECORDS SUMMARY | 2024-11-22 18:00 | XMS_ITS | Data Portability ---
Author Organization [facility] IP Address [address] [place] [id number] Care Team Providers Care Hydraulic Blocker Name Role Phone STEPHANIE CORREA Primary Care [...] By Organization Details Last Modified Time 07/25/2018 [id number] use OTC lubrican t eyedrops 3 times a day in both eyes. msafi Not available 07/25/2018 17:27:28 Keep follow-up appointments in 2 months as scheduled. msafi Not available 07/25/2018 17:27:45 12/05/2018 [id number] diabetic retinopathy: care instructions msafi Not available 12/05/2018 20:02:55 type 2 diabetes: care instructions [facility] 12/05/2018 20:02:55 Reason for Referral None Reported. Problems Name Problem SNOMED Code Status Onset Date Resolution Date Notes Provider Name and Address Organization Details Recorded Time Diabetes mellitus 72975389 Active 2017 Wandy agosto [facility] 8 12:14:02 Hypercholestero lemia 02468844 Active 2017 Wandy agosto [facility] 8 12:14:14 Problem Notes None recorded. Procedures Surgical History Date Name Laterality Status Provider Name and Address Organization Details Recorded Time 9 placement of stent in coronary artery completed Wandy Rapp [facility] 12/05/2018 10:00:35 7 placement of stent in [...] Name and Address Organization Details Recorded Time 491816 Brilinta medicatio n Not available Not available Not available 07/04/2018 69493 36 RxNorm Not Available Not Available Not Available 818720 Iodinated contrast media (substanc e) medicatio n Not available Not available Not available 07/04/2018 56840 2004 SNOMED Not Available Not Available Not [...] 8 180.34 cm 64 /min 37 kg/m2 741562. 98 g 161 mm[Hg] 66 mm[Hg] Wandy Rapp [facility] SIF 8 12:12:14 Date Recorded Body height Heart rate Body mass index (BMI) Body weight Systolic blood pressure Diastolic blood pressure Provider Name and Address Organization Details Last Updated DateTime 8 180.34 cm 63 /min 36.9 kg/m2 854467. 46 g 148 mm[Hg] 67 mm[Hg] Bernice Connelly RN [facility] 8 15:12:11 Date Recorded Body height Body mass index (BMI) Body weight Heart rate Systolic blood pressure Diastolic blood pressure Provider Name and Address Organization Details Last Updated DateTime 180.34 cm 37.8 kg/m2 993249. 53 g 62 /min 133 mm[Hg] 64 mm[Hg] Wandy Rapp [facility] 9 09:58:22 Social History Question Answer Notes LastModified by Organizat ion Details LastModified Time Tobacco Smoking Status Never Smoker Wandy Rapp [facility] 12/05/2018 09:58:54 What Was The Date Of Your Most Recent Tobacco Screening? 12/05/2018 Information not available 03/14/2019 [facility] Tobacco Cessation Counseling Been Provided? 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 3286695080 70798 E11.3299 Tear film insufficiency 70707054 H04.434 [id number] Evy Olson MD [facility] [address] [place] [address] 12/05/2018 09:46:14 12/06/2018 13:28:35 Nonproliferative retinopathy due to diabetes mellitus 445977711 E11.3293 After-juan ract with vision obscured following extraction of cataract 979528178 H26.492 Health Concerns Section Related Observation LastModified by Organization Detai ls LastModified Time None Recorded Concern Status LastModified by Organization Details LastModified Time None Recorded Advance Directives Directive None Recorded Payers Encounter Date Sequence Insurance Name Policy Number Policy Ge Covered Member ID Ge Member ID Guarantor Name 07/04/2018 1 [employer] (MEDICAID HMO) [id number] Juvenal Newcombe [id number] Juvenal Newcombe 07/25/2018 1 [employer] (MEDICAID HMO) [id number] Juvenal Newcombe [id number] Juvenal Newcombe 12/05/2018 1 [employer] (MEDICAID HMO) [id number] Juvenal Newcombe [id number] Juvenal Newcombe Notes Date Note Type Note Provider Name and Address Organization Details Recorded Time 07/04/2018 text/html C/O bleeding in left eye seen by shoe sewing machine operator and tender H/O cat. Sx OU. 2016 and 2017. No prolbem in post op exam Evy Olson MD [address] [place], [address], [facility] 07/05/2018 10:07:17 07/25/2018 text/html complaint of red spot in the right eye since 3 days, no pain no discharge no previous injury.History of diabetic retinopathy in both eyes Evy Olson MD [address] [place], [address], [facility] 07/25/2018 17:28:04 12/05/2018 text/html F/U DRP. c/o decreased vision in left eye Evy Olson MD [address] [place], [address], [facility] 12/05/2018 20:02:58
--- OUTSIDE RECORDS SUMMARY | 2024-11-22 18:01 | XMS_ITS | Encounter Summary ---
Author Organization [facility] Address [address] [place] [address] Care Team Providers Care Manager Of Manufacturing Name Role Phone Matthew Aditya Ellison Primary Care Provider Unavailab le Reason for Visit * Reason Onset Date Comments Med Question 06/25/2019 Encounter Details Date Type Department Care Team (Late st Contact Info) Description 06/25/2019 Telephone [facility] [address] [place] [address] Finn Kramer MD [address] [place] [address] Med Question Social History Tobacco Use Types [...] pt he is asking that we call [facility] at [phone] and talk to them about the compression stockings. I called and spoke with Kashif at [facility] and gave clarification the the mmHg I let them know that they should Be the 20-30mmHg . He understood and will get them ready for pt. Anali Connelly [employer] * Telephone Encounter - Theodore Huerta - 06/25/2019 10:40 AM CST Pt called saying patient pharmacy just needs clarification of a number on the prescription for compression socks. Please Advise. [employer] documented in this encounter Plan of Treatment Not on file documented as of this encounter Visit Diagnoses Not on filedocumented in this encounter Care Teams Manager Of Manufacturing Relationship Specialty Start Date End Date Aditya Castro Update Information PCP - General 03/06/19 documented as of this encounter
--- NOTE | 2024-11-22 18:12 | ECG_ITS ---
Test Date: 2024-11-22 18:20:48 Measurements Intervals [place] Rate: 107 P: 0 WV: 0 QRS: -18 QRSD: 153 T: 131 QT: 379 QTc: 506 Interpretive Statements ATRIAL FLUTTER/TACHYCARDIA WITH RAPID VENTRICULAR RESPONSE LEFT BUNDLE BRANCH BLOCK BASELINE ARTIFACT- I, II, III, AVR, AVL, AVF ABNORMAL ECG Compared to ECG 08/17/2024 21:55:37 NO SIGNIFICANT CHANGE Electronically Signed On 11-22-2024 20:22:33 CDT by Doc Dorantes D.O.
[2024-11-22 18:28] LABS: Basophils Percent Auto 0.3 % (0.2-1.2); Eosinophils Absolute Auto 0.1 K/mm3 (0-0.3); Eosinophils Percent Auto 0.8 % (0-4.4); Hemoglobin 12.2 g/dL (14.0-18.0); Immature Granulocyte Absolute 0.02 K/mm3 (0.00-0.031); Immature Granulocyte Percent A 0.3 % (0-0.5); Lymphocytes Absolute Auto 0.88 K/mm3 (0.9-3.2); Lymphocytes Percent Auto 14.9 % (18.3-44.2); Mean Corpuscular HGB Conc 32.1 g/dl (32-36); Mean Corpuscular Hemoglobin 29.7 pg (26-34); Mean Corpuscular Volume 92.5 fl (80-100); Mean Platelet Volume 11.3 fl (7.4-10.4); Monocytes Absolute Auto 0.8 K/mm3 (0.1-0.6); Monocytes Percent Auto 12.7 % (2.6-8.5); Neutrophils Absolute Auto 4.2 K/mm3 (1.3-6.7); Platelet Count Result 157 k/mm3 (150-375); Red Blood Count 4.11 M/mm3 (4.6-6.20); Red Cell Distribution Width 13.7 % (11.5-14.5); White Blood Count 5.9 K/mm3 (4.5-10.0)
--- NOTE | 2024-11-22 18:31 | ED_ITS ---
HPI - SOB/Dyspnea General Chief Complaint: Shortness of Breath/Dyspnea <Geensis Eden APRN - Last Filed: 11/22/24 20:44> Stated Complaint: Shortness of breath, chest pressure-A Fib <Genesis Eden APRN - Last Filed: 11/22/24 20:44> Time Seen by Provider: 11/22/24 18:01 <Genesis Eden APRN - Last Filed: 11/22/24 20:44> History of Present Illness HPI Narrative: Patient is a 54 year presents to the ER with shortness of breath. He reports he went to his primary care provider approximately 1 week ago due to increased coughing and wheezing. Patient reports his primary care provider put on antibiotics, prednisone, and cough medicine. He was given strict instructions to present to the ER if his symptoms did not improve. Patient endorses significant increased shortness of breath over the last couple of days. He reports he has history AFib for which he takes warfarin, peritoneal dialysis CHF, questionable COPD. Patient denies any recent fevers, abdominal pain, or chest pain. <Genesis Eden APRN - Last Filed: 11/22/24 20:44> Related Data Home Medications: Home Medications ?Medication ?Instructions ?Recorded ?Confirmed ?Last Taken ?Type calcitriol 0.25 mcg capsule 0.25 mcg PO QAM 06/04/19 10/21/24 07/29/24 History ergocalciferol (vitamin D2) 1,250 50,000 unit PO WEEKLY 06/04/19 10/21/24 07/29/24 History mcg (50,000 unit) capsule (Vitamin D2) nitroglycerin 0.4 mg sublingual 0.4 mg sublingual Q5-15M PRN Chest 06/04/19 10/21/24 05/19/23 16:30 History tablet Pain ezetimibe 10 mg tablet (Zetia) 10 mg PO DAILY 09/09/19 10/21/24 07/29/24 History cetirizine 10 mg tablet (All Day 10 mg PO DAILY 12/26/19 10/21/24 07/29/24 History Allergy (cetirizine)) atorvastatin 80 mg tablet 80 mg PO DAILY 11/26/20 10/21/24 07/29/24 History potassium chloride 20 mEq 20 meq PO DAILY Cramps 05/20/23 10/21/24 05/19/23 10:00 History tablet,extended release febuxostat 40 mg tablet 40 mg PO QPM 07/25/23 10/21/24 07/28/24 History linaclotide 72 mcg capsule 72 mcg PO DAILY PRN Diarrhea 07/25/23 10/21/24 Unknown History (Linzess) icosapent ethyl 1 gram capsule 1 g PO QID 02/16/24 10/21/24 07/29/24 History (Vascepa) torsemide 100 mg tablet 100 mg PO DAILY 02/16/24 10/21/24 07/29/24 History omeprazole 20 mg capsule,delayed 20 mg PO DAILY 06/06/24 10/21/24 07/29/24 History release amlodipine 10 mg tablet 10 mg PO HS 07/30/24 10/21/24 07/28/24 History calcium acetate(phosphat bind) 667 667 mg PO QID 07/30/24 10/21/24 07/29/24 History mg capsule glucagon 1 mg/0.2 mL subcutaneous See Rx Instructions .Route 07/30/24 10/21/24 Unknown History auto-injector (Gvoke HypoPen .COMPLEX PRN Hypoglycemia 2-Pack) famotidine 40 mg tablet 40 mg PO HS 08/17/24 10/21/24 Unknown History lidocaine 5 % topical patch 1 patch transdermal Q24H 08/17/24 10/21/24 Unknown History aspirin 81 mg capsule 81 mg PO DAILY 08/31/24 10/21/24 Unknown History colchicine 0.6 mg capsule 0.6 mg PO 3XW 08/31/24 10/21/24 Unknown History gentamicin 0.1 % topical cream 1 applic topical HS 08/31/24 10/21/24 Unknown History tamsulosin 0.4 mg capsule 0.4 mg PO BID 08/31/24 10/21/24 Unknown History insulin aspart U-100 100 unit/mL 15 unit subcut TIDWMEAL 09/23/24 10/21/24 Unknown History (3 mL) subcutaneous pen (Novolog FlexPen U-100 Insulin aspart) metoprolol tartrate 50 mg tablet 100 mg PO DAILY 09/23/24 10/21/24 Unknown History Elizabeth Eden, PIPE OR STEAM FITTER FURNACE INSTALLER - Last Filed: 11/22/24 20:44> Allergies/Adverse Reactions: Allergies Allergy/AdvReac Type Severity Reaction Status Date / Time allopurinol Allergy Severe Other Verified 11/22/24 17:56 iodine Allergy Severe Rash Verified 11/22/24 17:56 iohexol (From CONTRAST - CT, Allergy Severe Difficulty Verified 11/22/24 17:56 XRAY) Breathing ticagrelor Allergy Intermediate Rash Verified 11/22/24 17:56 <Genesis Eden APRN - Last Filed: 11/22/24 20:44> Review of Systems 2 Review of Systems: All systems reviewed & are unremarkable except as noted in HPI and below <Genesis Eden APRN - Last Filed: 11/22/24 20:44> [facility] Past Medical History Medical History: Medical History Chronic back pain Hematuria Right hand dominant Insulin dependent diabetes mellitus Chronic anticoagulation Paroxysmal atrial fibrillation Renal osteodystrophy Seizure X1 with etiology unknown End-stage renal disease on peritoneal dialysis Essential hypertension Gout Deep venous thrombosis Chronic right popliteal DVT. Coronary artery disease History of several stents including complex procedure at [place] w/ stenting of a heavily calcified CX on OM using shockwave treatment. Gastroesophageal reflux disease Congestive heart failure Echocardiogram May 2017 EF of 50% with hypokinetic apical, inferior and basal inferior lateral segment, mild enlargement of left atrium. Anemia in chronic kidney disease Type 1 diabetes mellitus Onset around age 13. Diabetic retinopathy Diabetic peripheral neuropathy Obstructive sleep apnea With inconsistent CPAP use. Secondary hyperparathyroidism of renal origin Anxiety Arthritis Hyperlipidemia <Genesis Eden APRN - Last Filed: 11/22/24 20:44> Surgical History Surgical History: Surgical History S/P triple vessel bypass Sep 2023; [facility] History of coronary angioplasty with insertion of stent Drug-eluting stents for high-grade OM 99% occlusion 05/2022. History of hernia repair Peritoneal dialysis catheter in place History of cataract extraction With lens implant History of open reduction and internal fixation (ORIF) procedure (1982) Left lower extremity fracture. And the right hip pinning when he was in the 8th grade History of arthroscopy of left knee History of anterior cruciate ligament surgery (2000) Left knee History of bilateral carpal tunnel release Right 05/03/2018. Left 06/02/2018. History of appendectomy (2006) History of cardiac catheterization 01/21/2021 catheterization at [facility], Dr. Hoover done: Little change from prior catheterization. Patent stents in the RCA and PDA. Previously jailed posterolateral is occluded and development of a 50% stenosis of a branch of om 1. Normal LV function. :August 2019 demonstrated patent stents with 40% stenosis of 1 vessel with no stents or angioplasty performed per patient report. :November 2018 at [facility] - stent x3. :March 2017 demonstrating mild diffuse coronary disease 80% lesion small sub branch of obtuse marginal 1 and 90% stenosis distal RCA into the origin of the PDA with PTCA and stent to the RPDA/distal RCA performed by Dr. Petit. <Genesis Eden APRN - Last Filed: 11/22/24 20:44> Family History Family History: Family History Father , in his late 60s Acute myocardial infarction Premature coronary artery disease; <65yo CHF (congestive heart failure) Dementia Hypertension S/P triple vessel bypass 1980s Mother Lung cancer Hypertension Daughter Celiac disease <Genesis Eden APRN - Last Filed: 11/22/24 20:44> Social History Social History: Social History Social History: Surrogate medical decision maker: Hodan Pilo (daughter) or Lorne Daigle (brother). Code status: Full code. Smoking status: Never smoker Second hand tobacco smoke exposure: No Alcohol intake: never Substance use: never Substance use type: does not use Do You Feel Safe in your Home?: Yes Lack of Transportation: No Lack of Food: Never True Current Housing: I Have Housing Concerned About Future Housing: No Difficulty Paying Gas/Electric Bills: No Difficulty Paying for Meds: No Currently Unemployed: No Education: Decline to Answer Difficulty w/ Childcare or Family Care: No Living arrangements: alone Additional living arrangements comments: He is single and has 3 children. 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 Spiritual care concerns: No Agree to blood products: Yes <Genesis Eden APRN - Last Filed: 11/22/24 20:44> Exam 2 Narrative: GENERAL: Well appearing, well-nourished, non-toxic, in no acute distress. HEAD: Normocephalic, atraumatic. NECK: Supple. No adenopathy, no masses. RESPIRATORY: Airway patent, respirations nonlabored. Crackles to auscultation bilaterally, + wheezing. CARDIOVASCULAR: Regular rate and rhythm without murmurs, rubs, or gallops. Peripheral pulses 2+ and equal bilaterally. ABDOMINAL: Soft, nontender, nondistended, no hepatosplenomegaly. Normoactive BS. MUSCULOSKELETAL: Moves all extremities. Strength/ROM intact without gross deformities. SKIN: Warm, dry, normal color. No rashes. NEURO: A&O X3. Speech clear. Cranial nerves II-XII intact. No ataxic movements. PSYCHIATRIC: Appropriate mood and affect. Normal interaction. <Genesis Eden APRN - Last Filed: 11/22/24 20:44> Course TREATING PLANT PUMPER/PA Physician Supervision This visit was performed by both a physician and an APC. I performed all aspects of the MDM as documented. <Kip Beard MD - Last Filed: 11/22/24 20:46> Vital Signs Vital signs: Vital Signs Temperature 97.2 F L 11/22/24 18:08 Pulse Rate 98 11/22/24 18:08 Respiratory Rate 17 11/22/24 18:08 Blood Pressure 136/88 11/22/24 18:08 Pulse Oximetry 97 11/22/24 18:08 Temperature 97.2 F L 11/22/24 18:08 Pulse Rate 115 H 11/22/24 20:14 Respiratory Rate 16 11/22/24 20:14 Blood Pressure 133/85 11/22/24 19:25 Pulse Oximetry 100 11/22/24 19:25 Oxygen Delivery Room Air 11/22/24 18:30 <Genesis Eden APRN - Last Filed: 11/22/24 20:44> Vital Signs Temperature 97.2 F L 11/22/24 18:08 Pulse Rate 98 11/22/24 18:08 Respiratory Rate 17 11/22/24 18:08 Blood Pressure 136/88 11/22/24 18:08 Pulse Oximetry 97 11/22/24 18:08 Temperature 97.2 F L 11/22/24 18:08 Pulse Rate 115 H 11/22/24 20:14 Respiratory Rate 16 11/22/24 20:14 Blood Pressure 133/85 11/22/24 19:25 Pulse Oximetry 100 11/22/24 19:25 Oxygen Delivery Room Air 11/22/24 18:30 <Kip Beard MD - Last Filed: 11/22/24 20:46> MDM - SOB/Dyspnea MDM Narrative Medical decision making narrative: Patient is a 54 year presents to the ER with shortness of breath. He reports he went to his primary care provider approximately 1 week ago due to increased coughing and wheezing. Patient reports his primary care provider put on antibiotics, prednisone, and cough medicine. He was given strict instructions to present to the ER if his symptoms did not improve. Patient endorses significant increased shortness of breath over the last couple of days. He reports he has history AFib for which he takes warfarin, peritoneal dialysis, CHF, questionable COPD. Patient denies any recent fevers, abdominal pain, or chest pain. Labs Ordered: CBC, CMP, blood cultures, lactic acid, troponin, CRP, UA, UDS, pro BNP, INR, APTT Imaging Ordered: CT chest diagnostic Medications Ordered: DuoNebs, Solu-Medrol, 1 L normal saline, ceftriaxone IV, azithromycin IV, Lasix 40mg IV Results: Patient's CT scan indicates Interval development of a left lower lobe infiltrate with increased left-sided pleural effusion, as detailed above. Redemonstration of mediastinal lymphadenopathy. Diagnosis: Lt pleural effusion, left lower lobe pneumonia, CHF exacerbation, COPD exacerbation Consults: nephrology (Michael)- He agrees to consult pt and will let the dialysis nurses know that pt needs PD. Patient Education/Shared MDM: Results shared with patient. He endorses improvement following medication administration. Pt was advised he will be admitted to the hospital for further work-up. He verbalized understanding and is in agreement with plan. Spoke with hospitalist who is in agreement with plan for pt to be admitted. He requests pt be admitted to the IMU. <Genesis Eden APRN - Last Filed: 11/22/24 20:44> Differential Diagnosis Differential diagnosis: Likely acute exacerbation of chronic obstructive airways disease, congestive heart failure and community acquired pneumonia <Genesis Eden APRN - Last Filed: 11/22/24 20:44> Lab Data Attestation: I reviewed the patient's lab results. <Genesis Eden APRN - Last Filed: 11/22/24 20:44> Result diagrams: 11/22/24 18:22 11/22/24 18:22 <Genesis Eden PIPE OR STEAM FITTER FURNACE INSTALLER - Last Filed: 11/22/24 20:44> Labs: Lab Results 11/22/24 11/22/24 11/22/24 Range/Units 18:22 19:41 20:08 WBC 5.9 (4.5-10.0) K/mm3 RBC 4.11 L (4.6-6.20) M/mm3 Hgb 12.2 L (14.0-18.0) g/dL Hct 38.0 L (42.0-52.0) % MCV 92.5 (80-100) fl MCH 29.7 (26-34) pg MCHC 32.1 (32-36) g/dl RDW 13.7 (11.5-14.5) % Plt Count 157 (150-375) k/mm3 MPV 11.3 H (7.4-10.4) fl Immature Gran % (Auto) 0.3 (0-0.5) % Neut % (Auto) 71.0 (45.5-73.1) % Lymph % (Auto) 14.9 L (18.3-44.2) % Page % (Auto) 12.7 H (2.6-8.5) % Eos % (Auto) 0.8 (0-4.4) % Baso % (Auto) 0.3 (0.2-1.2) % Lymph # (Auto) 0.88 L (0.9-3.2) K/mm3 Page # (Auto) 0.8 H (0.1-0.6) K/mm3 Eos # (Auto) 0.1 (0-0.3) K/mm3 Baso # (Auto) 0.0 (0.0-0.1) K/mm3 Abs Immat Gran (auto) 0.02 (0.00-0.031) K/mm3 Absolute Neuts (auto) 4.2 (1.3-6.7) K/mm3 Absolute Nucleated RBC 0.000 (0.0-0.012) K/mm3 Nucleated RBC % 0.0 (0.0-0.2) % PT 29.3 H (11.1-14.7) Seconds INR 2.7 APTT 32.8 (22.3-36.8) Seconds Sodium 131 L (137-145) mmol/L Potassium 4.1 (3.4-5.0) mmol/L Chloride 94 L (98-107) mmol/L Carbon Dioxide 24 (22-30) mmol/L Anion Gap 13 H (4-12) mmol/L BUN 55 H (9-20) mg/dL Creatinine 7.41 H (0.7-1.3) mg/dL Estim Creat Clear Calc 13 ml/min Estimated GFR 8 L (59 - ) Glucose 272 H (65-110) mg/dL Lactic Acid 1.9 (0.7-2.0) mmol/L Calcium 8.4 (8.4-10.2) mg/dL Magnesium 1.7 (1.6-2.3) mg/dL Total Bilirubin 0.9 (0.2-1.3) mg/dL AST 32 (17-59) U/L ALT 34 (6-50) U/L Alkaline Phosphatase 99 (38-126) U/L Troponin I 0.247 H* 0.252 H* (0.000-0.034) ng/mL C-Reactive Protein 0.7 (<1.0) mg/dL NT-Pro-B Natriuret Pep > 53663 H (19.9-100) pg/mL Total Protein 7.0 7.0 (6.3-8.2) g/dL Albumin 3.7 (3.5-5.1) g/dL Urine Color Yellow (Yellow) Urine Appearance Cloudy H (Clear) Urine pH 5.0 (5.0-9.0) Ur Specific [place] 1.029 (1.001-1.035) Urine Protein 1+ H (Negative) mg/dL Urine Glucose (UA) 3+ H (Negative) mg/dL Urine Ketones Trace H (Negative) mg/dL Ur Blood (Man) 3+ H (Negative) Urine Nitrate Negative (Negative) Urine Bilirubin Negative (Negative) Urine Urobilinogen 0.2 (<2.0) mg/dL Add Ur Microanalysis Reviewed Leukocyte Esterase Rfl 2+ H (Negative) BENJAMIN/UL Urine RBC >100 H (0-2) /hpf Urine WBC 21-50 H (0-3) /hpf Ur Squamous Epith Cells None seen (Few) /hpf Urine Bacteria None seen /hpf Urine Casts 6-10 Urine Opiates Screen Negative (Negative) Urine Methadone Screen Negative (Negative) Ur Barbiturates Screen Negative (Negative) Ur Phencyclidine Scrn Negative (Negative) Ur Amphetamine Screen Negative (Negative) U Benzodiazepines Scrn Negative (Negative) Urine Cocaine Screen Negative (Negative) U Cannabinoids Screen Negative (Negative) <Genesis Eden, PIPE OR STEAM FITTER FURNACE INSTALLER - Last Filed: 11/22/24 20:44> Lab Results 11/22/24 11/22/24 11/22/24 Range/Units 18:22 19:41 20:08 WBC 5.9 (4.5-10.0) K/mm3 RBC 4.11 L (4.6-6.20) M/mm3 Hgb 12.2 L (14.0-18.0) g/dL Hct 38.0 L (42.0-52.0) % MCV 92.5 (80-100) fl MCH 29.7 (26-34) pg MCHC 32.1 (32-36) g/dl RDW 13.7 (11.5-14.5) % Plt Count 157 (150-375) k/mm3 MPV 11.3 H (7.4-10.4) fl Immature Gran % (Auto) 0.3 (0-0.5) % Neut % (Auto) 71.0 (45.5-73.1) % Lymph % (Auto) 14.9 L (18.3-44.2) % Page % (Auto) 12.7 H (2.6-8.5) % Eos % (Auto) 0.8 (0-4.4) % Baso % (Auto) 0.3 (0.2-1.2) % Lymph # (Auto) 0.88 L (0.9-3.2) K/mm3 Page # (Auto) 0.8 H (0.1-0.6) K/mm3 Eos # (Auto) 0.1 (0-0.3) K/mm3 Baso # (Auto) 0.0 (0.0-0.1) K/mm3 Abs Immat Gran (auto) 0.02 (0.00-0.031) K/mm3 Absolute Neuts (auto) 4.2 (1.3-6.7) K/mm3 Absolute Nucleated RBC 0.000 (0.0-0.012) K/mm3 Nucleated RBC % 0.0 (0.0-0.2) % PT 29.3 H (11.1-14.7) Seconds INR 2.7 APTT 32.8 (22.3-36.8) Seconds Sodium 131 L (137-145) mmol/L Potassium 4.1 (3.4-5.0) mmol/L Chloride 94 L (98-107) mmol/L Carbon Dioxide 24 (22-30) mmol/L Anion Gap 13 H (4-12) mmol/L BUN 55 H (9-20) mg/dL Creatinine 7.41 H (0.7-1.3) mg/dL Estim Creat Clear Calc 13 ml/min Estimated GFR 8 L (59 - ) Glucose 272 H (65-110) mg/dL Lactic Acid 1.9 (0.7-2.0) mmol/L Calcium 8.4 (8.4-10.2) mg/dL Magnesium 1.7 (1.6-2.3) mg/dL Total Bilirubin 0.9 (0.2-1.3) mg/dL AST 32 (17-59) U/L ALT 34 (6-50) U/L Alkaline Phosphatase 99 (38-126) U/L Troponin I 0.247 H* 0.252 H* (0.000-0.034) ng/mL C-Reactive Protein 0.7 (<1.0) mg/dL NT-Pro-B Natriuret Pep > 33101 H (19.9-100) pg/mL Total Protein 7.0 7.0 (6.3-8.2) g/dL Albumin 3.7 (3.5-5.1) g/dL Urine Color Yellow (Yellow) Urine Appearance Cloudy H (Clear) Urine pH 5.0 (5.0-9.0) Ur Specific [place] 1.029 (1.001-1.035) Urine Protein 1+ H (Negative) mg/dL Urine Glucose (UA) 3+ H (Negative) mg/dL Urine Ketones Trace H (Negative) mg/dL Ur Blood (Man) 3+ H (Negative) Urine Nitrate Negative (Negative) Urine Bilirubin Negative (Negative) Urine Urobilinogen 0.2 (<2.0) mg/dL Add Ur Microanalysis Reviewed Leukocyte Esterase Rfl 2+ H (Negative) BENJAMIN/UL Urine RBC >100 H (0-2) /hpf Urine WBC 21-50 H (0-3) /hpf Ur Squamous Epith Cells None seen (Few) /hpf Urine Bacteria None seen /hpf Urine Casts 6-10 Urine Opiates Screen Negative (Negative) Urine Methadone Screen Negative (Negative) Ur Barbiturates Screen Negative (Negative) Ur Phencyclidine Scrn Negative (Negative) Ur Amphetamine Screen Negative (Negative) U Benzodiazepines Scrn Negative (Negative) Urine Cocaine Screen Negative (Negative) U Cannabinoids Screen Negative (Negative) <Kip Beard MD - Last Filed: 11/22/24 20:46> Imaging Data Attestation: I personally reviewed and interpreted this imaging study as follows: < Genesis Eden APRN - Last Filed: 11/22/24 20:44> Radiologist's impression: Impressions Chest X-Ray 11/22/24 19:16 IMPRESSION: Large left-sided pleural effusion, increased from 09/08/2024. Chest CT 11/22/24 19:18 IMPRESSION: Interval development of a left lower lobe infiltrate with increased left-sided pleural effusion, as detailed above. Redemonstration of mediastinal lymphadenopathy. <Genesis Eden APRN - Last Filed: 11/22/24 20:44> Discharge Plan Discharge Clinical Impression: Acute exacerbation of chronic obstructive pulmonary disease, Pleural effusion, Left lower lobe pulmonary infiltrate, Elevated troponin <Genesis Eden APRN - Last Filed: 11/22/24 20:44> Patient Disposition: Still a Patient <Genesis Eden APRN - Last Filed: 11/22/24 20:44> Condition: Serious <Genesis Eden APRN - Last Filed: 11/22/24 20:44> Patient Language: Zambian <Genesis Eden, PIPE OR STEAM FITTER FURNACE INSTALLER - Last Filed: 11/22/24 20:44> Prescriptions: No Action calcitriol 0.25 mcg Capsule 0.25 mcg PO QAM ergocalciferol (vitamin D2) [Vitamin D2] 50,000 unit Capsule 50,000 unit PO WEEKLY Rx Instructions: on mondays at 0900 nitroglycerin 0.4 mg Tablet, Sublingual 0.4 mg SUBLINGUAL Q5-15M PRN (Reason: Chest Pain) Patient Comments: pt states he needs his prescription renewed (DME) Omnipod 5 G6 Pods (Gen 5) Cartridge SUBCUT Qty: 45 2RF Rx Instructions: Change every 48 hours metoprolol tartrate 50 mg tablet 100 mg PO DAILY insulin aspart U-100 [Novolog FlexPen U-100 Insulin] 100 unit/mL (3 mL) insulin pen 15 unit subcut TIDWMEAL Rx Instructions: Take 12 units premeal +SSI 150-170: 1 unit 171-190: 2 units 191-210: 3 units 210-230: 4 units 231-250: 5 units 251-270: 6 units 271-290: 7 units 291-310: 8 units 310-330: 9 units 331-350: 10 units 351-370: 11 units 371-390: 12 units 391-410: 13 units >411 14 units Humulin N NPH Insulin KwikPen 100 unit/mL (3 mL) insulin pen 30 unit subcut DAILY 90 Days Qty: 27 1RF Rx Instructions: take 30 units before peritoneal dialysis ezetimibe [Zetia] 10 mg Tablet 10 mg PO DAILY cetirizine [All Day Allergy (cetirizine)] 10 mg Tablet 10 mg PO DAILY atorvastatin 80 mg tablet 80 mg PO DAILY albuterol sulfate [ProAir HFA] 90 mcg/actuation HFA aerosol inhaler 1 inh inhalation QID PRN (Reason: shortness of breath or wheezing) Qty: 8.5 0RF febuxostat 40 mg tablet 40 mg PO QPM Linzess 72 mcg capsule 72 mcg PO DAILY PRN (Reason: Diarrhea) omeprazole 20 mg capsule,delayed release(DR/EC) 20 mg PO DAILY aspirin 81 mg capsule 81 mg PO DAILY colchicine 0.6 mg capsule 0.6 mg PO 3XW Rx Instructions: monday, monday, fridays gentamicin 0.1 % cream 1 applic topical HS tamsulosin 0.4 mg capsule 0.4 mg PO BID warfarin 5 mg tablet 5 mg PO DAILY Qty: 30 0RF potassium chloride 20 mEq tablet extended release 20 meq PO DAILY torsemide 100 mg tablet 100 mg PO DAILY icosapent ethyl [Vascepa] 1 gram capsule 1 g PO QID amlodipine 10 mg tablet 10 mg PO HS Gvoke HypoPen 2-Pack 1 mg/0.2 mL auto-injector See Rx Instructions .ROUTE .COMPLEX PRN (Reason: Hypoglycemia) Rx Instructions: INJECT 1 MG(0.2 ML) UNDER THE SKIN ONCE A SINGLE DOSE, MAY REPEAT ONCE AFTER 15 MINUTES IF NO RESPONSE calcium acetate(phosphat bind) 667 mg capsule 667 mg PO QID cyclobenzaprine 10 mg tablet 5 - 10 mg PO TID PRN (Reason: muscle spasm) Qty: 10 0RF famotidine 40 mg tablet 40 mg PO HS lidocaine 5 % adhesive patch,medicated 1 patch transdermal Q24H Patient Comments: Back (DME) pen needle, diabetic [BD Lucrecia 2nd Gen Pen Needle] 32 gauge x 5/32 needle See Rx Instructions .ROUTE .COMPLEX Qty: 400 1RF Dose Instruction: TO ADMINISTER INSULIN DIRECTED Rx Instructions: TO ADMINISTER INSULIN 4 times daily (DME) OneTouch Verio test strips Strip See Rx Instructions .Route Qty: 300 0RF Rx Instructions: test bs 3 times daily (DME) Dexcom G6 Transmitter Device See Rx Instructions .Route Qty: 1 0RF Rx Instructions: change every 90 days levothyroxine 25 mcg tablet 25 mcg PO DAILY Qty: 90 1RF (DME) Dexcom G6 Sensor Device See Rx Instructions .Route Qty: 9 0RF Rx Instructions: change every 10 days insulin glargine U-300 conc [Toujeo SoloStar U-300 Insulin] 300 unit/mL (1.5 mL) insulin pen 50 unit subcut DAILY 90 Days Qty: 18 2RF <Genesis Eden APRN - Last Filed: 11/22/24 20:44> Follow-up/Referrals: Matthew,MD Aditya [Primary Care Provider] - <Genesis Eden APRN - Last Filed: 11/22/24 20:44>
--- OUTSIDE RECORDS SUMMARY | 2024-11-22 18:33 | XMS_ITS | Encounter Summary ---
Author Organization [facility] Lu[facility] utimildred Address [address], [place] [address] Phone Care Team Providers Care Detail Drafter Name Role Phone Unavailable Primary Care Provider Unavailabl e Reason for Visit * Reason Comments Med Refill Encounter Details Date Type Department Care Team (Late st Contact Info) Description 07/04/2019 Refill [facility] [address] [address] Leandro Reyes MD [address] [address] Social History Tobacco Use Types [...]
--- OUTSIDE RECORDS SUMMARY | 2024-11-22 18:33 | XMS_ITS | Encounter Summary ---
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
--- OUTSIDE RECORDS SUMMARY | 2024-11-22 18:33 | XMS_ITS | Clinical Summary ---
Author Organization [facility] Address [address] [place] [address] Care Team Providers Care Investment Advisor Name Role Phone Aditya Castro MD Primary Care Provider [phone] Allergies Active Allergy Reactions Criticality Noted Date Comments Allopurinol Shortness of Breath/Wheezing,Othe r (See Comments) High 07/31/2019 Shuts my kidneys down per patient. Chlorhexidine Other (See Comments) High 06/29/2022 Skin peels all over and becomes tender Iodinated Contrast Media Rash High 07/10/2017 Ticagrelor Rash High 05/04/2017 Medications isosorbide mononitrate (IMDUR) 30 mg Extended Release 24 hour tablet Take 30 mg by mouth daily candy vendor. Active clopidogrel (PLAVIX) 75 mg Tablet Take [...] Take 50,000 Units by mouth. Active Insulin Dougherty, Disposable, (TRUEPLUS PEN NEEDLE) 31 gauge x [...] (06/29/2022): Added automatically from request for surgery [id number] Right upper quadrant pain 09/24/2020 Pre-transplant evaluation for kidney transplant 03/24/2020 Overview (06/29/2022): Images from the original note were not included. Juvenal Daigle 1970 Referring Front End Software Developer: Leandro Reyes Dialysis Info: Type: PD Time: 160 days (11/05/2019) Blood Type: A Body mass index is 37.8 kg/m . ALERTS Electrocardiograph Technician: Vashti Lizama NP Past Medical History: Diagnosis Date Anemia Arthritis Arthropathy osteo. back and knees see Dr. Norton CAD (coronary artery disease) Community acquired pneumonia 2017 [facility] hospitalized with double pneumonia Congestive heart failure Coronary artery disease Diabetes mellitus type 1 teens dx when he was 13. Insulin since he was dx. Insulin pump currently with dexacom. Vashti Lizama NP is business applications specialist. DM (diabetes mellitus) TYPE 1 DVT (deep venous thrombosis) 2017 [facility]. ESRD on peritoneal dialysis Gout History of blood transfusion 2017 during admission for [place] HLD (hyperlipidemia) HTN (hypertension) Hypercholesteremia 5 years on med Hypertension 30's on medications. Kidney disease Myocardial infarction 2017 [facility]. Stent x1 placed. Neuropathy feet Obstructive sleep [...] file Gets together: Not on file Attends quaker service: Not on file Active member of [...] 07/02/2020: Committee Discussion Details: Pt brought to [facility] to discuss his cardiac workup. Team [...] It is the impression of this social service worker that Juvenal Daigle has several positive [...] advised of safety concerns regarding immunosuppressants. Plan: [employer] worker to provide supportive services as needed. Patient appears to be a reasonable candidate for transplant from a psychosocial perspective. -Post transplant arrangement forms are needed prior to being listed. Psychiatric Consult Recommended: No Transplant Supervisor Statement Clerks: Radha Roper LCSW RD:05/14/2020 BMI= 40.0, Class [...] cm (5' 10 ) 06/29/2022 6:00 PM JUNIOR SOFTWARE ENGINEER Body Mass Index 37.74 06/29/2022 6:00 PM JUNIOR SOFTWARE ENGINEER Plan of Treatment Health Maintenance Due Date [...] or Tdap) 10/21/2029 10/22/2019 Insurance [facility] [id number] [facility] MCR Advance Directives For more information, please contact: [phone] * Full Code (Latest Code Status on File) Date Activated Date Inactivated Comments 06/29/2022 2:49 PM 07/08/2022 4:30 PM Care Teams Investment Advisor Relationship Specialty Start Date End Date Aditya Castro MD PCP - General Student in an Organized Health Care Education/Training Program 09/11/18
--- OUTSIDE RECORDS SUMMARY | 2024-11-22 18:33 | XMS_ITS | Clinical Summary ---
Author Organization [facility] Address [address] [place] [id number] Phone Care Team Providers Care Stringed Instrument Repairer Name Role Phone Unavailable Primary Care [...] daily 0 12/27/2017 Active Cholecalciferol (VITAMIN D3) 46729 units capsule 1 tab by mouth once [...]
--- OUTSIDE RECORDS SUMMARY | 2024-11-22 18:33 | XMS_ITS | Clinical Summary ---
Author Organization [facility] Address [address] [place] [address] Care Team Providers Care Craft Superintendent Name Role Phone Aditya Castro Primary Care Provider Unavailab le Source Comments [facility],non-owned Affiliates and Associated Physician Practices is amultiple site organization consisting of ambulatory clinics and hospital sitesin [place], [place], [place]. This disclosure is being madepursuant to the Care Everywhere program and may not contain all information available regarding this patient. Last updated 18.[facility] Allergies Active Allergy Reactions Criticality Noted Date [...] needed 01/25/2019 Active vitamin D, ergocalciferol, (DRISDOL) 35399 units capsule Take 50,000 Units by mouth [...] fluticasone propionate (FLONASE) 50 MCG/ACT nasal spray Napoleon 1 spray into each nostril once daily 04/24/2019 Active epoetin (PROCRIT) 35727 UNIT/ML injection Inject subcutaneously every 14 days [...] were not included. Juvenal Garvin 1970 Referring Stock Layer: Leandro Reyes Dialysis Info: Type: PD Time: 160 days (11/05/2019) Blood Type: A Body mass index is 37.8 kg/m . ALERTS Career Development Coordinator: Vashti Lizama NP Past Medical History: Diagnosis Date Anemia Arthritis Arthropathy osteo. back and knees see Dr. Cierra ELIAS (coronary artery disease) Community acquired pneumonia 2017 [facility] hospitalized with double pneumonia Congestive heart failure Coronary artery disease Diabetes mellitus type 1 teens dx when he was 13. Insulin since he was dx. Insulin pump currently with dexacom. Vashti Lizama CONTENT PRODUCER is ingot buggy operator. DM (diabetes mellitus) TYPE 1 DVT (deep venous thrombosis) 2017 [facility]. ESRD on peritoneal dialysis Gout History of blood transfusion 2017 during admission for [place] HLD (hyperlipidemia) HTN (hypertension) Hypercholesteremia 5 years on med Hypertension 30's on medications. Kidney disease Myocardial infarction 2017 [facility]. Stent x1 placed. Neuropathy feet Obstructive [...] file Gets together: Not on file Attends judaism service: Not on file Active member of [...] 07/02/2020: Committee Discussion Details: Pt brought to [facility] to discuss his cardiac workup. [...] stress. Stress ejection fraction estimated at 83%. [facility]: 08/26/2019 NM exercise Stress: 04/16/2019 04/17/2017 [...] is the impression of this social worker masters that Juvenal Garvin has several positive factors [...] advised of safety concerns regarding immunosuppressants. Plan: hospitality workers to provide supportive services as needed. Patient appears to be a reasonable candidate for transplant from a psychosocial perspective. -Post transplant arrangement forms are needed prior to being listed. Psychiatric Consult Recommended: No Transplant Gear Technician: Radha Roper LCSW RD:05/14/2020 BMI= 40.0, Class [...] Comments Blood Pressure 140/60 07/13/2020 1:30 PM ASSOCIATE THEATRE PROFESSOR Pulse 65 07/13/2020 1:30 PM ASSOCIATE THEATRE PROFESSOR Temperature 36.1 C (97 F) 07/13/2020 1:30 PM ASSOCIATE THEATRE PROFESSOR Respiratory Rate 20 07/13/2020 1:30 PM ASSOCIATE THEATRE PROFESSOR Oxygen Saturation 95% 07/13/2020 1:30 PM ASSOCIATE THEATRE PROFESSOR Inhaled Oxygen Concentration - - Weight 134.3 kg (296 lb) 07/13/2020 1:30 PM ASSOCIATE THEATRE PROFESSOR Height 176.5 cm (5' 9.5 ) 07/13/2020 1:30 PM ASSOCIATE THEATRE PROFESSOR Body Mass Index 43.08 07/13/2020 1:30 PM ASSOCIATE THEATRE PROFESSOR Plan of Treatment Health Maintenance Due [...] ve Non-react bianca 05/14/2020 11:49 AM CDT [facility] Comment:Neither HIV-1 p24 An tigen nor HIV-1/HIV-2 Antibodies are detected. Blood BLOOD SPECIMEN / Unknown Lab Venipuncture / Unknown 05/14/2020 10:18 AM CDT 05/14/2020 10:57 AM CDT Glenny Martin MD LAB - HEMATOLOG Y ORDERABLES [facility] [place] [id number] [place] [address], [facility] [phone] * (ABNORMAL) COMPREHENSIVE METABOLIC PANEL (05/14/2020 10:18 AM [facility]) BUN 65(H) 7 - 26 mg/dL [...] 1.1 - 2.3 05/14/2020 11:41 AM CDT [facility] eGFR 11(L) >60 mL/min/1.7 3 m2 05/14/2020 11:41 AM CDT [facility] Blood BLOOD SPECIMEN / Unknown Lab Venipuncture / Unknown 05/14/2020 10:18 AM CDT 05/14/2020 10:55 AM CDT Glenny Martin MD LAB - CHEMISTRY ORDERABLES [facility] [address] [place] [address], [place] [phone] * HEPATITIS C ANTIBODY (05/14/2020 10:18 AM CDT) Hepatitis C Antibody Non-react bianca Non-reac tive 05/14/2020 11:49 AM CDT [facility] Comment:Hepatitis C Antibody screen indicates [...] Glenny Martin MD LAB - CHEMISTRY ORDERABLES [address] [address], [place] [phone] from Last 3 Months or Most Recently Relevant to Health Maintenance Insurance Payer Benefit Plan / Group Subscriber ID Effective Dates Phone Address Type AETNA MEDICARE ADV AETNA MEDICARE ADV HMO/PPO/PFFS [id number] Effective for all dates [address] [place] [address] Medicare-[facility] MEDICAID [facility] MEDICAID [facility] [place] Effective for all dates [address] [facility] [place] [address] Medicaid AETNA MEDICARE ADV AETNA MEDICARE ADV HMO/PPO/PFFS [id number] Effective for all dates [address] [place] [address] Medicare-[place] naged Care MEDICAID [facility] MEDICAID [facility] [place] Effective for all dates [address] [place] [address] Medicaid AETNA MEDICARE ADV AETNA MEDICARE ADV HMO/PPO/PFFS [id number] Effective for all dates [address] [place] [address] Medicare-[place] naged Care MEDICA[place] [facility] MEDICAID [facility] [place] Effective for all dates [address] [place] [address] Medicaid MEDICARE S MEDICARE PART B [id number] 08/21/2019-Pres ent [address] [address] [place] [address] Medicare MEDICAID - OUT OF [facility] [place]ID - [place] PUBLIC AID [id number] 08/21/2019-Pres ent [address] [address] [place] [address] Medicaid MEDICARE MEDICARE PART A AND B [id number] 08/21/2019-Pres ent [address] [place] [address] Medicare MEDICAID - [place] [id number] Effective for all dates [address] [address] [place] [address] Medicaid [place] Advance Directives * Full Code (Latest Code Status on File) Date Activated Date Inactivated Comments 11/22/2018 9:24 AM 11/23/2018 7:55 PM Care Teams Craft Superintendent Relationship Specialty Start Date End Date Aditya Castro Update Information PCP - General 03/06/19
--- OUTSIDE RECORDS SUMMARY | 2024-11-22 18:33 | XMS_ITS | Referral Summary ---
Author Organization [facility] Address [address] [place] [address] Care Team Providers Care Harvest Worker Field Crop Name Role Phone Aditya Castro MD Primary Care Provider [phone] Alondra Lambert RN Unavailable [phone] Shannon Brock MD, Hamlet Gordon Unavailable [phone] Leandro Reyes MD Unavailable [phone] Encounters Date Type Department Care Team Description 11/06/2024 Documentation [facility] Transplant Kidney [address] [facility] [address] [id number] [place] [address] Melany Kelly Appointment/Schedules 11/05/2024 Telephone [facility] Transplant Kidney [address] [facility] [address] [id number] [place] [address] Alondra Lambert, LUAN 09/12/2024 Orders Only [facility] Cardiology [address] [place] [address] Lalit Machuca MD from Last [...] 1 tablet (25 mcg total) by mouth therapeutic strategy lead before breakfast 30 tablet 1 11/04/19 24 [...] mg SL tablet 12/28/19 18 Active peg 905-ayfjbmzlolhg-yo ycerin (ARTIFICAL TEARS) 1-0.2-0.2 % ophthalmic solution 1 drop 4 (four) times a day 07/07/20 22 Active potassium chloride ER 20 mEq CR tablet Active Active Problems Problem Noted Date Diagnosed Date End stage renal disease 07/29/2024 Nonrheumatic aortic valve stenosis 11/22/2023 Status post aortic valve replacement 11/22/2023 Status post coronary artery bypass grafting 10/2023 CAD in [place] artery 10/13/2023 Anemia 06/22/2022 Assessment & Plan (06/29/2022 10:12 AM MEAT MARKET MANAGER): Stable, likely 2/2 anemia from ESRD, [...] 06/22/2022 Assessment & Plan (06/29/2022 10:12 AM MEAT MARKET MANAGER): - Renal consulted, s/p CRRT in the ICU now back on PD. Tolerated well and nephrology following - Trialysis catheter removed - Continue vitamins for renal bone mineral disease. Assessment & Plan (06/28/2022 3:29 PM MEAT MARKET MANAGER): - Renal consulted, s/p CRRT in [...] 06/22/2022 Assessment & Plan (06/29/2022 10:12 AM MEAT MARKET MANAGER): C/b cardiogenic shock requiring impella in the setting of cath and AHRF 2/2 pulmonary edema, now resolved. TTE demonstrating recovered EF 65% with grade I diastolic dysfunction. - metop as above - continue low dose losartan 12.5mg daily, ok per nephro. Tolerating well - volume management per PD Assessment & Plan (06/28/2022 3:29 PM MEAT MARKET MANAGER): C/b cardiogenic shock requiring impella in [...] 06/22/2022 Assessment & Plan (06/29/2022 10:12 AM MEAT MARKET MANAGER): Converted to NSR overnight on 06/24. CHADsVASc of 4 not on anticoagulation prior to admission. - cardiology consulted - recommended ongoing rate control - holding off on a/c with high risk for bleeding while on DAPT - reduced metop to 25mg BID in the setting of hypotension, HR 70s NSR Assessment & Plan (06/28/2022 3:30 PM MEAT MARKET MANAGER): Converted to NSR overnight on 06/24. [...] 08/22/2021 Assessment & Plan (06/29/2022 10:11 AM MEAT MARKET MANAGER): With recurrent chest pain post-cath. He [...] today Assessment & Plan (06/28/2022 3:30 PM MEAT MARKET MANAGER): With recurrent chest pain post-cath. He [...] 06/22/2022 Assessment & Plan (06/29/2022 10:11 AM MEAT MARKET MANAGER): Secondary to NSTEMI, s/p Impella since removed on 06/10. Resolved. Assessment & Plan (06/23/2022 4:55 PM CDT): Secondary to NSTEMI, s/p Impella since removed on 06/10. Resolved. Assessment & Plan (06/22/2022 8:22 PM CDT): -Secondary to NSTEMI, s/p Impella since removed on 06/10. Acute hypoxemic respiratory failure 06/09/2022 Assessment & Plan (06/29/2022 10:12 AM MEAT MARKET MANAGER): Secondary to ACS and flash pulmonary [...] (06/10/2022): Added automatically from request for surgery [id number] Abnormal cardiovascular stress test 12/29/2020 Overview (12/29/2020): Added automatically from request for surgery [id number] 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n ative artery of [place] heart with stable angina pectoris ([facility]) 05/23/2017 History of [...] 01/18/2013 Assessment & Plan (06/29/2022 10:12 AM MEAT MARKET MANAGER): A1c well controlled on admission. He [...] session Assessment & Plan (06/28/2022 3:28 PM MEAT MARKET MANAGER): A1c well controlled on admission. He [...] from doctor or pharmacy Never 12/01/2023 [facility] Answer Date Recorded In the past [...] week 08/01/2024 How often do you attend sikhism or mandaeism serv ices? Never 08/01/2024 Do you belong [...] any time in the past 12 m [facility], were you homeless or [...] file Legal Sex Male 3:42 AM MEAT MARKET MANAGER Gender Identity Not on file Sexual Orientation Not on file Last Filed Vital Signs Vital Sign Reading Time Taken Comments Blood Pressure 122/75 07/29/2024 1:00 PM MEAT MARKET MANAGER Pulse 116 07/29/2024 1:00 PM MEAT MARKET MANAGER Temperature 36.8 C (98.2 F) 07/29/2024 1:00 PM MEAT MARKET MANAGER Respiratory Rate 16 12/01/2023 11:1 3 AM CDT Oxygen Saturation 96% 12/01/2023 11: 13 AM CDT Inhaled Oxygen Concentration - - Weight 121.2 kg (267 lb 1.6 oz) 07/29/2024 1:00 PM MEAT MARKET MANAGER Height 177.8 cm (5' 10 ) 07/29/2024 1:00 PM MEAT MARKET MANAGER Body Mass Index 38.32 07/29/2024 1:00 PM MEAT MARKET MANAGER Plan of Treatment Not on file Medical Devices Implanted Type Area Kiln Cleaner Device Identifier Shelf Expiration Date Model / Serial / Lot Kyle Vascular Device Clsr Perclose Prostyle Sut-Mediatd Closure-Repair Sys 37851-23 - [id number] Implanted:Qty: 1 on 06/10/2022 by Champ Osborne MD PhD at [facility] Other - see comments Right: Femoral Kyle Vascular 01/19/202471732-23 [employer] Mary Synergy Xd Monorail 2.5mm 48mm 144cm Delivery System 1 Access [id number] - [id number] Implanted:Qty: 1 on 06/07/2022 by Champ Osborne MD PhD at [facility] Stent [employer] Mary 10/27/2023 [id number] / / [id number] [employer] Mary Synergy Xd Monorail 3mm 24mm 144cm Delivery System 1 Access Port [id number] - [id number] Implanted:Qty: 1 on 06/07/2022 by Champ Osborne MD PhD at [facility] Stent [employer] Mary 07/28/2023 [id number] / / [id number] [employer] Mary Synergy Xd Monorail 2.5mm 12mm 144cm Delivery System 1 Access [id number] - [id number] Implanted:Qty: 1 on 06/07/2022 by Champ Osborne MD PhD at [facility] Stent [employer] Mary 05/03/2023 [id number] / [id number] / [id number] Daig Mray [id number] Device Closure Angio-Seal Vip Bondek-Plus Polyglyd L70 Cm Od6 Fr Odsec.035 In Vascular - [id number] Implanted:Qty: 1 on 01/21/2021 by Hamlet Ortega Jr., MD at [facility] Left: Groin [employer] Mary [id number] / / Kyle Vascular Device Clsr Perclose Prostyle Sut-Mediatd Closure-Repair Sys 12403-41 - [id number] Implanted:Qty: 1 on 06/07/2022 by Champ Osborne MD PhD at [facility] Kyle Vascular 01/19/2024 [id number] Kyle Vascular Device Clsr Perclose Prostyle Sut-Mediatd Closure-Repair Sys 88659-30 - [id number] Implanted:Qty: 1 on 06/07/2022 by Champ Osborne MD PhD at [facility] Kyle Vascular 11/19/2023 [id number] / / [id number] Bard Access Systems Power-Trialysis 13fr 30cm 3 Lumen Kink Resistance Symmetric Tip [id number] - [id number] Implanted:Qty: 1 on 06/07/2022 by Champ Osborne MD PhD at [facility] Right: Jugular Ramirez Powell 07/20/2024 [id number] / / [id number] Abi[employer] Inc Impella Cp Percutaneous Left Ventricular Assist Device 3729-5834 - [id number] Implanted:Qty: 1 on 06/07/2022 by Champ Osborne MD PhD at [facility] Left: Ventricle [employer] [id number] / / Bard Access Systems Power-Trialysis 13fr 20cm 3 Lumen Short Term Dialysis Straight [id number] - [id number] Implanted:Qty: 1 on 06/18/2022 at [facility] Ramirez Powell 07/20/2024 [id number] / / [id number] Rl Biomet Inc Screw Bone Slf Drl Full Thread Locking 3.5x14mm Ti 100.035.14 - [id number] Implanted:Qty: 6 on 10/17/2023 by Lorne Mcnulty MD at [facility] N/A: Sternum Rl [employer] Inc 100.035.1 4 / / Rl Biomet Inc Plate Bone Low Profile 6 Hole H Shape Sternum Ti 115.102.06 - [id number] Implanted:Qty: 2 on 10/17/2023 by Lorne Mcnulty MD at [facility] N/A: Sternum [employer]l [employer] Inc 115.102.0 6 / / Rl [employer] Inc Plate Bone Low Profile 6 Hole O Shape Sternum Ti 115.104.06 - [id number] Implanted:Qty: 1 on 10/17/2023 by Lorne Mcnulty MD at [facility] N/A: Sternum [employer]l [employer] Inc 115.104.0 6 / / On-X Intrnl Valve Coronary Aortic Mechanical On X 25mm Onxane-25 - [id number] - [id number] Implanted:Qty: 1 on 10/17/2023 by Lorne Mcnulty MD at [facility] N/A: Heart On-X Intrnl 01/22/2028 ONXANE-25 / [id number] / Rl Bi[employer] Inc Screw Bone Slf Drl Full Thread Locking 3.5x18mm Ti 100.035.18 - [id number] Implanted:Qty: 12 on 10/17/2023 by Lorne Mcnulty MD at [facility] N/A: Sternum Rl [employer] Inc 100.035.1 8 / / Explanted Type Area Kiln Cleaner Device Identifier Shelf Expiration Date Model / Serial / Lot Bard Peripheral Vascular Bard .25x.25in [place] Thk1.65mm Square Pledget Cardiovascular Ptfe [id number] - [id number] Explanted:Qty: 1 on 10/17/2023 by Lorne Mcnulty MD at [facility] N/A: Heart Bard Peripheral Vascular 05/18/2026 [id number] / / Procedures Procedure Name Priority Date/Time Associated Diagnosis Comments CARDIOLOGY DOCUMENT SCAN Routine 09/08/2024 11:26 AM MEAT MARKET MANAGER CARDIOLOGY DOCUMENT SCAN Routine 09/07/2024 11:24 AM MEAT MARKET MANAGER CARDIOLOGY DOCUMENT SCAN Routine 09/05/2024 11:06 AM MEAT MARKET MANAGER HEPATITIS C ANTIBODY Routine 07/29/2024 11:01 AM MEAT MARKET MANAGER End stage renal disease (HCC) EGFR Routine 07/29/2024 11:01 AM MEAT MARKET MANAGER End stage renal disease (HCC) HEMOGLOBIN A1C Routine 07/29/2024 11:01 AM MEAT MARKET MANAGER End stage renal disease (HCC) LIPID PANEL Routine 07/29/2024 11:01 AM MEAT MARKET MANAGER End stage renal disease (HCC) PSA SCREEN Routine 07/29/2024 11:01 AM MEAT MARKET MANAGER End stage renal disease (HCC) TSH Routine 10/27/2023 2:30 AM MEAT MARKET MANAGER from Last 3 Months or Most Recently Relevant to Health Maintenance Results * Cardiology Document Scan (09/08/2024 11:26 AM MEAT MARKET MANAGER) Anatomical Region Laterality Modality Other Juan Christianson MD CV CARDIAC SERVICES PROCEDU RES Final Result * Cardiology Document Scan (09/07/2024 11:24 AM MEAT MARKET MANAGER) Anatomical Region Laterality Modality Other Juan Christianson MD CV CARDIAC SERVICES PROCEDU RES Final Result * Cardiology Document Scan (09/05/2024 11:06 AM MEAT MARKET MANAGER) Anatomical Region Laterality Modality Other Lalit Machuca MD CV CARDIAC SERVICES PROCEDURES F inal Result * (ABNORMAL) eGFR (07/29/2024 11:01 AM MEAT MARKET MANAGER) eGFR 7(L) >=60 mL/min/1. 73 m2 [...] reviewed 2021. Blood 07/29/2024 11:0 1 AM MEAT MARKET MANAGER 07/29/2024 11:33 AM MEAT MARKET MANAGER us Jossie King MD LAB BLOOD ORDERABL ES Final Result [facility] Department [place] [address] * PSA screen (07/29/2024 11:01 AM MEAT MARKET MANAGER) PSA-Total 0.55 <=3.90 ng/mL Comment: Interpretive [...] revised 21. Blood 07/29/2024 11:0 1 AM MEAT MARKET MANAGER 07/29/2024 11:33 AM MEAT MARKET MANAGER Narrative [facility] - 07/29/2024 12:39 PM MEAT MARKET MANAGER This lab is being obtained as part of a Kidney transplant evaluation, is time sensitive, and should only be drawn during the evaluation visit at [address] Lab[address] Jossie King MD LAB BLOOD ORDERABL ES Final Result [facility] Department [place] [address] * Hepatitis C antibody Blood (07/29/2024 11:01 AM MEAT MARKET MANAGER) Pathologist [facility] Hep C Ab Nonreactive Nonreactive Comment:Antibodies to HCV no t detected. Does NOT exclude the possibility of recent exposure to HCV. Current interpretive data was last revised on 22 Blood 07/29/2024 11:0 1 AM MEAT MARKET MANAGER 07/29/2024 11:32 AM MEAT MARKET MANAGER Narrative [facility] - 07/29/2024 12:47 PM MEAT MARKET MANAGER This lab is being obtained as part of a Kidney transplant evaluation, is time sensitive, and should only be drawn during the evaluation visit at [address] Lab[address] Jossie King MD LAB MICROBIOLOGY - GENERAL ORDERABLES Final Result Performing Organization Address City/[facility] Co de Phone Number [facility] Department [place] [address] * (ABNORMAL) Hemoglobin A1c (07/29/2024 11:01 AM MEAT MARKET MANAGER) Hgb A1C 9.0(H) 4.0 - 5.6 % Estimated Average Glucose 212 mg/dL [facility] Comment: The ADA recommends reporting an estimated Average Glucose (eAG) with all Hemoglobin A1c results using the equation derived from a study of 507 normal and diabetic adults. Minority populations were underrepresented and children were not included. (Diabetes Care 2020; 43(S1): S66-S76). The eAG is not equivalent to a fasting glucose. Blood 07/29/2024 11:0 1 AM MEAT MARKET MANAGER 07/29/2024 11:34 AM MEAT MARKET MANAGER Narrative [facility] - 07/29/2024 11:53 AM MEAT MARKET MANAGER This lab is being obtained as part of a Kidney transplant evaluation, is time sensitive, and should only be drawn during the evaluation visit at [facility] Lab. Jossie King MD LAB BLOOD ORDERABL ES Final Result Performing Organization Address [facility] Co de Phone Number [facility] Department [place] [address] * (ABNORMAL) Lipid panel (07/29/2024 11:01 AM MEAT MARKET MANAGER) [facility] Cholesterol 114 30 - 199 [...] on 2018. Triglycerides 66 <=149 mg/dL [facility] Comment: Interpretive Data Ages < [...] on 2018. HDL 29(L) >=40 mg/dL [facility] Comment: Interpretive Data Ages < [...] 2018. LDL, calculated 71 <=129 mg/dL [facility] Comment: Interpretive Data Ages < [...] on 2024. Non-HDL Cholesterol 85 mg/dL [facility] Comment: Interpretive Data Ages < [...] revised on 2018. Chol/HDL ratio 4 [facility] Blood 07/29/2024 11:0 1 AM MEAT MARKET MANAGER 07/29/2024 11:33 AM MEAT MARKET MANAGER Narrative [facility] - 07/29/2024 12:10 PM MEAT MARKET MANAGER This lab is being obtained as part of a Kidney transplant evaluation, is time sensitive, and should only be drawn during the evaluation visit at [facility] Lab. us Jossie King MD LAB BLOOD ORDERABL ES Final Result [facility] Department [place] [address] * (ABNORMAL) TSH (10/27/2023 2:30 AM MEAT MARKET MANAGER) Thyroid Stimulating Hormone 13.20(H) 0.30 - 4.20 mcIUnit/mL Blood 10/27/2023 2:30 AM MEAT MARKET MANAGER 10/27/2023 2:42 AM MEAT MARKET MANAGER us Lorne Mcnulty MD LAB BLOOD ORDERABLES Final Result [facility] [address] [place] [address] from Last 3 Months or Most Recently Relevant to Health Maintenance Insurance [facility] MEDICARE ADVANTAGE [facility] MEDICARE ADVANTAGE TRANSPLANT [employer] MEDICARE RISK IDPA TRANSPLANT [employer] MEDICARE RISK IDPA Advance Directives For more information, please contact: [phone] * Full Code (Latest Code Status on File) Date Activated Date Inactivated Comments 10/13/2023 11:32 PM 11/03/2023 11:42 PM * Full Code Date Activated Date Inactivated Comments 06/05/2022 6:17 AM 06/29/2022 6:20 PM * Full Code Date Activated Date Inactivated Comments 06/05/2022 4:43 AM 06/05/2022 4:43 AM * Full Code Date Activated Date Inactivated Comments 06/04/2022 9:55 PM 06/05/2022 4:43 AM Care Teams Harvest Worker Field Crop Relationship Specialty Start Date End Date Aditya Castro MD [address] [facility] [place] [address] PCP - General 10/17/19 Alondra Lambert, RN [address] [facility] [address] [place] [address] Scrap Crane Operator 03/06/24 Hamlet Ortega Jr., MD [address] [place] [address] Consulting Physician Cardiovascular Disease 05/10/24 Leandro Reyes MD [address] [place] [address] Consulting Physician Nephrology 07/30/24
--- OUTSIDE RECORDS SUMMARY | 2024-11-22 18:33 | XMS_ITS | Encounter Summary ---
Author Organization [facility] Address [address], [place] [address] Phone Care Team Providers Care Cell Coverer Name Role Phone Unavailable Primary Care Provider Unavailabl e Reason for Visit * Reason Comments Med Refill Encounter Details Date Type Department Care Team (Late st Contact Info) Description 10/08/2019 Refill [facility] [address] [address] Leandro Reyes MD [address] [address] Social History Tobacco Use [...]
--- OUTSIDE RECORDS SUMMARY | 2024-11-22 18:33 | XMS_ITS | Encounter Summary ---
Author Organization [facility] Address [address], [place] [address] Phone Care Team Providers Care Art Framing Manager Name Role Phone Unavailable Primary Care Provider Unavailabl e Reason for Visit * Reason Comments Med Refill Encounter Details Date Type Department Care Team (Late st Contact Info) Description 02/24/2020 Refill [facility] [address] [address] Leandro Reyes MD [address] [address] Social History Tobacco Use Types [...]
--- OUTSIDE RECORDS SUMMARY | 2024-11-22 18:33 | XMS_ITS | Clinical Summary ---
Author Organization [facility] Address [address] [place] [address] Care Team Providers Care Pharmacy Services Representative Name Role Phone Aditya Castro MD Primary Care Provider [phone] Alondra Lambert RN Unavailable [phone] Shannon Brock MD, Hamlet P. Unavailable [phone] Leandro Reyes MD Unavailable [phone] Allergies Active Allergy Reactions Criticality Noted Date [...] PUMP: Continue Omnipod 5 insulin pump with DynaOpticscom G6 CGM at home settings: TIME BASAL [...] tablet (25 mcg total) by mouth early head start director before breakfast 30 tablet 1 11/04/19 [...] mg SL tablet 12/28/19 18 Active peg [id number]-mx ycerin (ARTIFICAL TEARS) 1-0.2-0.2 % ophthalmic solution 1 drop 4 (four) times a day 07/07/20 22 Active potassium chloride ER 20 mEq CR tablet Active Active Problems Problem Noted Date Diagnosed Date End stage renal disease 07/29/2024 Nonrheumatic aortic valve stenosis 11/22/2023 Status post aortic valve replacement 11/22/2023 Status post coronary artery bypass grafting 10/2023 CAD in [place] artery 10/13/2023 Anemia 06/22/2022 Assessment & Plan (06/29/2022 10:12 AM COSMETICS AND TOILETRIES SALESPERSON): Stable, likely 2/2 anemia from ESRD, no [...] 06/22/2022 Assessment & Plan (06/29/2022 10:12 AM COSMETICS AND TOILETRIES SALESPERSON): - Renal consulted, s/p CRRT in the ICU now back on PD. Tolerated well and nephrology following - Trialysis catheter removed - Continue vitamins for renal bone mineral disease. Assessment & Plan (06/28/2022 3:29 PM COSMETICS AND TOILETRIES SALESPERSON): - Renal consulted, s/p CRRT in the [...] 06/22/2022 Assessment & Plan (06/29/2022 10:12 AM COSMETICS AND TOILETRIES SALESPERSON): C/b cardiogenic shock requiring impella in the setting of cath and AHRF 2/2 pulmonary edema, now resolved. TTE demonstrating recovered EF 65% with grade I diastolic dysfunction. - metop as above - continue low dose losartan 12.5mg daily, ok per nephro. Tolerating well - volume management per PD Assessment & Plan (06/28/2022 3:29 PM COSMETICS AND TOILETRIES SALESPERSON): C/b cardiogenic shock requiring impella in the [...] 06/22/2022 Assessment & Plan (06/29/2022 10:12 AM COSMETICS AND TOILETRIES SALESPERSON): Converted to NSR overnight on 06/24. CHADsVASc of 4 not on anticoagulation prior to admission. - cardiology consulted - recommended ongoing rate control - holding off on a/c with high risk for bleeding while on DAPT - reduced metop to 25mg BID in the setting of hypotension, HR 70s NSR Assessment & Plan (06/28/2022 3:30 PM COSMETICS AND TOILETRIES SALESPERSON): Converted to NSR overnight on 06/24. CHADsVASc [...] 08/22/2021 Assessment & Plan (06/29/2022 10:11 AM COSMETICS AND TOILETRIES SALESPERSON): With recurrent chest pain post-cath. He has [...] today Assessment & Plan (06/28/2022 3:30 PM COSMETICS AND TOILETRIES SALESPERSON): With recurrent chest pain post-cath. He has [...] 06/22/2022 Assessment & Plan (06/29/2022 10:11 AM COSMETICS AND TOILETRIES SALESPERSON): Secondary to NSTEMI, s/p Impella since removed on 06/10. Resolved. Assessment & Plan (06/23/2022 4:55 PM CDT): Secondary to NSTEMI, s/p Impella since removed on 06/10. Resolved. Assessment & Plan (06/22/2022 8:22 PM CDT): -Secondary to NSTEMI, s/p Impella since removed on 06/10. Acute hypoxemic respiratory failure 06/09/2022 Assessment & Plan (06/29/2022 10:12 AM COSMETICS AND TOILETRIES SALESPERSON): Secondary to ACS and flash pulmonary edema, [...] (06/10/2022): Added automatically from request for surgery [id number] Abnormal cardiovascular stress test 12/29/2020 Overview (12/29/2020): Added automatically from request for surgery [id number] 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n ative artery of [place] heart with stable angina pectoris ([facility]) 05/23/2017 History of coronary artery [...] 01/18/2013 Assessment & Plan (06/29/2022 10:12 AM COSMETICS AND TOILETRIES SALESPERSON): A1c well controlled on admission. He uses [...] session Assessment & Plan (06/28/2022 3:28 PM COSMETICS AND TOILETRIES SALESPERSON): A1c well controlled on admission. He uses [...] Type Department Care Team Description 11/06/2024 Documentation [facility] Trans[facility] Kidney [address] Mailstop [phone] [place] [address] Melany Kelly Appointment/Schedules 11/05/2024 Telephone [facility] [address] Mailstop [id number] [place] [address] Alondra Lambert RN 09/12/2024 Orders Only [facility] Cardiology [address] [place] [address] Lalit Machuca MD from Last [...] doctor or pharmacy Never 12/01/2023 [facility] Utilities Answer Date Recorded In the past 12 months has e [employer] [facility], oil, or water [employer] threatened to shut off services in your [...] How often do you attend mosque or mormon serv ices? Never 08/01/2024 Do [...] in a prison (including now)? No 10/16/2023 Housing Stability Vital [...] time in the past 12 m [facility], were you homeless or living in a prison (including now)? No 08/01/2024 Personal Safety Answer Date Recorded Have you ever been in or are you currently in a harmful physical or emotional relationship or is someone making you feel afraid or unsafe? 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 Male 3:42 AM COSMETICS AND TOILETRIES SALESPERSON Gender Identity Not on file Sexual Orientation Not on file Obstetrics History Last Filed Vital Signs Vital Sign Reading Time Taken Comments Blood Pressure 122/75 07/29/2024 1:00 PM COSMETICS AND TOILETRIES SALESPERSON Pulse 116 07/29/2024 1:00 PM COSMETICS AND TOILETRIES SALESPERSON Temperature 36.8 C (98.2 F) 07/29/2024 1:00 PM COSMETICS AND TOILETRIES SALESPERSON Respiratory Rate 16 12/01/2023 11:1 3 AM CDT Oxygen Saturation 96% 12/01/2023 11: 13 AM CDT Inhaled Oxygen Concentration - - Weight 121.2 kg (267 lb 1.6 oz) 07/29/2024 1:00 PM COSMETICS AND TOILETRIES SALESPERSON Height 177.8 cm (5' 10 ) 07/29/2024 1:00 PM COSMETICS AND TOILETRIES SALESPERSON Body Mass Index 38.32 07/29/2024 1:00 PM COSMETICS AND TOILETRIES SALESPERSON Plan of Treatment Health Maintenance Due Date [...] 03/23/2017, 03/26/2015 Medical Devices Implanted Type Area Waiter And Cashier Device Identifier Shelf Expiration Date Model / Serial / Lot Kyle Vascular Device Clsr Perclose Prostyle Sut-Mediatd Closure-Repair Sys 35765-85 - [id number] Implanted:Qty: 1 on 06/10/2022 by Champ Osborne MD PhD at [facility] Other - see comments Right: Femoral [employer] 01/19/2024 [id number] / / [id number] [employer] Mary Synergy Xd Monorail 2.5mm 48mm 144cm Delivery System 1 Access [id number] - [id number] Implanted:Qty: 1 on 06/07/2022 by Champ Osborne MD PhD at [facility] Stent [employer] Mayr 10/27/2023 [id number] / / [id number] [employer] Mary Synergy Xd Monorail 3mm 24mm 144cm Delivery System 1 Access Port [id number] - [id number] Implanted:Qty: 1 on 06/07/2022 by Champ Osborne MD PhD at [facility] Stent [employer] Mary 07/28/2023 [id number] / / [id number] [employer] Mary Synergy Xd Monorail 2.5mm 12mm 144cm Delivery System 1 Access [id number] - [id number] - [id number] Implanted:Qty: 1 on 06/07/2022 by Champ Osborne MD PhD at [facility] Stent [employer] Mary 05/03/2023 [id number] / [id number] / [id number] Dai Mary [id number] Device Closure Angio-Seal Vip Bondek-Plus Polyglyd L70 Cm Od6 Fr Odsec.035 In Vascular - [id number] Implanted:Qty: 1 on 01/21/2021 by Hamlet Ortega Jr., MD at [facility] Left: Groin [employer] Mary [id number] / / Kyle Vascular Device Clsr Perclose Prostyle Sut-Mediatd Closure-Repair Sys 23437-80 - [id number] Implanted:Qty: 1 on 06/07/2022 by Champ Osborne MD PhD at [facility] [employer] 01/19/2024 [id number] / [id number] Kyle V[employer] Device Clsr Perclose Prostyle Sut-Mediatd Closure-Repair Sys 65510-11 - [id number] Implanted:Qty: 1 on 06/07/2022 by Champ Osborne MD PhD at [facility] Kyle Vascular 11/19/2023 [id number] / [id number] Bard Access Systems Power-Trialysis 13fr 30cm 3 Lumen Kink Resistance Symmetric Tip [id number] - [id number] Implanted:Qty: 1 on 06/07/2022 by Champ Osborne MD PhD at [facility] Right: Jugular Ramirez Chapito 07/20/2024 [id number] / / [id number] [employer] [place]ella Cp Percutaneous Left Ventricular Assist Device 9051-5922 - [id number] Implanted:Qty: 1 on 06/07/2022 by Champ Osborne MD PhD at [facility] Left: Ventricle [employer] [id number] / / Bard Access Systems Power-Trialysis 13fr 20cm 3 Lumen Short Term Dialysis Straight [id number] - [id number] Implanted:Qty: 1 on 06/18/2022 at [facility] Ramirez Satsuma 07/20/2024 [id number] / / [id number] Rl Biomet Inc Screw Bone Slf Drl Full Thread Locking 3.5x14mm Ti 100.035.14 - [id number] Implanted:Qty: 6 on 10/17/2023 by Lorne Mcnulty MD at [facility] N/A: Sternum [employer]l [employer] Inc 100.035.1 4 / / Rl [employer] Inc Plate Bone Low Profile 6 Hole H Shape Sternum Ti 115.102.06 - [id number] Implanted:Qty: 2 on 10/17/2023 by Lorne Mcnulty MD at [facility] N/A: Sternum [employer]l [employer] 115.102.0 6 / / Lr [employer]omet Inc Plate Bone Low Profile 6 Hole O Shape Sternum Ti 115.104.06 - [id number] Implanted:Qty: 1 on 10/17/2023 by Lorne Mcnulty MD at [facility] N/A: Sternum [employer] 115.104.0 6 / / On-X Intrnl Valve Coronary Aortic Mechanical On X 25mm Onxane-25 - [id number] - [id number] Implanted:Qty: 1 on 10/17/2023 by Lorne Mcnulty MD at [facility] N/A: Heart On-X Intrnl 01/22/2028 ONXANE-25 / [id number] / Rl [employer] Inc Screw Bone Slf Drl Full Thread Locking 3.5x18mm Ti 100.035.18 - [id number] Implanted:Qty: 12 on 10/17/2023 by Lorne Mcnulty MD at [facility] N/A: Sternum Rl [employer] Inc 100.035.1 8 / / Explanted Type Area Waiter And Cashier Device Identifier Shelf Expiration Date Model / Serial / Lot Bard Peripheral Vascular Bard .25x.25in Walling Thk1.65mm Square Pledget Cardiovascular Ptfe [id number] - [id number] Explanted:Qty: 1 on 10/17/2023 by Lorne Mcnulty MD at [facility] N/A: Heart Bard Peripheral Vascular 05/18/2026 [id number] / / Procedures Procedure Name Priority Date/Time Associated Diagnosis Comments CARDIOLOGY DOCUMENT SCAN Routine 09/08/2024 11:26 AM COSMETICS AND TOILETRIES SALESPERSON CARDIOLOGY DOCUMENT SCAN Routine 09/07/2024 11:24 AM COSMETICS AND TOILETRIES SALESPERSON CARDIOLOGY DOCUMENT SCAN Routine 09/05/2024 11:06 AM COSMETICS AND TOILETRIES SALESPERSON HEPATITIS C ANTIBODY Routine 07/29/2024 11:01 AM COSMETICS AND TOILETRIES SALESPERSON End stage renal disease (HCC) EGFR Routine 07/29/2024 11:01 AM COSMETICS AND TOILETRIES SALESPERSON End stage renal disease (HCC) HEMOGLOBIN A1C Routine 07/29/2024 11:01 AM COSMETICS AND TOILETRIES SALESPERSON End stage renal disease (HCC) LIPID PANEL Routine 07/29/2024 11:01 AM COSMETICS AND TOILETRIES SALESPERSON End stage renal disease (HCC) PSA SCREEN Routine 07/29/2024 11:01 AM COSMETICS AND TOILETRIES SALESPERSON End stage renal disease (HCC) TSH Routine 10/27/2023 2:30 AM COSMETICS AND TOILETRIES SALESPERSON from Last 3 Months or Most Recently Relevant to Health Maintenance Results * Cardiology Document Scan (09/08/2024 11:26 AM COSMETICS AND TOILETRIES SALESPERSON) Anatomical Region Laterality Modality Other Juan Christianson MD CV CARDIAC SERVICES PROCEDU RES Final Result * Cardiology Document Scan (09/07/2024 11:24 AM COSMETICS AND TOILETRIES SALESPERSON) Anatomical Region Laterality Modality Other us Juan Christianson MD CV CARDIAC SERVICES PROCEDU RES Final Result * Cardiology Document Scan (09/05/2024 11:06 AM COSMETICS AND TOILETRIES SALESPERSON) Anatomical Region Laterality Modality Other Lalit Machuca MD CV CARDIAC SERVICES PROCEDURES F inal Result * (ABNORMAL) eGFR (07/29/2024 11:01 AM COSMETICS AND TOILETRIES SALESPERSON) eGFR 7(L) >=60 mL/min/1. 73 m2 Comment: [...] reviewed 2021. Blood 07/29/2024 11:0 1 AM COSMETICS AND TOILETRIES SALESPERSON 07/29/2024 11:33 AM COSMETICS AND TOILETRIES SALESPERSON Jossie King MD LAB BLOOD ORDERABL ES Final Result Performing Organization Address [facility] Co de Phone Number [facility] [place] [address] * PSA screen (07/29/2024 11:01 AM COSMETICS AND TOILETRIES SALESPERSON) PSA-Total 0.55 <=3.90 ng/mL Comment: Interpretive Data [...] revised 21. Blood 07/29/2024 11:0 1 AM COSMETICS AND TOILETRIES SALESPERSON 07/29/2024 11:33 AM COSMETICS AND TOILETRIES SALESPERSON Narrative [facility] - 07/29/2024 12:39 PM COSMETICS AND TOILETRIES SALESPERSON This lab is being obtained as part of a Kidney transplant evaluation, is time sensitive, and should only be drawn during the evaluation visit at [address] Lab[address] Jossie King MD LAB BLOOD ORDERABL ES Final Result Performing Organization Address [facility] de Phone Number [facility] Department [place] [address] * Hepatitis C antibody Blood (07/29/2024 11:01 AM COSMETICS AND TOILETRIES SALESPERSON) Hep C Ab Nonreactive Nonreactive Comment:Antibodies to HCV no t detected. Does NOT exclude the possibility of recent exposure to HCV. Current interpretive data was last revised on 22 Blood 07/29/2024 11:0 1 AM COSMETICS AND TOILETRIES SALESPERSON 07/29/2024 11:32 AM COSMETICS AND TOILETRIES SALESPERSON Narrative [facility] - 07/29/2024 12:47 PM COSMETICS AND TOILETRIES SALESPERSON This lab is being obtained as part of a Kidney transplant evaluation, is time sensitive, and should only be drawn during the evaluation visit at [address] Lab[address] Jossie King MD LAB MICROBIOLOGY - GENERAL ORDERABLES Final Result Performing Organization Address [facility] de Phone Number [facility] Department [place] [address] * (ABNORMAL) Hemoglobin A1c (07/29/2024 11:01 AM COSMETICS AND TOILETRIES SALESPERSON) Hgb A1C 9.0(H) 4.0 - 5.6 % Estimated Average Glucose 212 mg/dL [facility] Comment: The ADA recommends reporting an estimated Average Glucose (eAG) with all Hemoglobin A1c results using the equation derived from a study of 507 normal and diabetic adults. Minority populations were underrepresented and children were not included. (Diabetes Care 2020; 43(S1): S66-S76). The eAG is not equivalent to a fasting glucose. Blood 07/29/2024 11:0 1 AM COSMETICS AND TOILETRIES SALESPERSON 07/29/2024 11:34 AM COSMETICS AND TOILETRIES SALESPERSON Narrative [facility] - 07/29/2024 11:53 AM COSMETICS AND TOILETRIES SALESPERSON This lab is being obtained as part of a Kidney transplant evaluation, is time sensitive, and should only be drawn during the evaluation visit at [address] Lab[address] Jossie King MD LAB BLOOD ORDERABL ES Final Result Performing Organization Address [facility] de Phone Number [facility] Department [place] [address] * (ABNORMAL) Lipid panel (07/29/2024 11:01 AM COSMETICS AND TOILETRIES SALESPERSON) Cholesterol 114 30 - 199 mg/dL Comment: [...] revised on 2018. Triglycerides 66 <=149 mg/dL [facility] Comment: Interpretive Data [...] revised on 2018. HDL 29(L) >=40 mg/dL [facility] Comment: Interpretive Data Ages < or [...] on 2018. LDL, calculated 71 <=129 mg/dL [facility] Comment: Interpretive Data Ages < or [...] revised on 2024. Non-HDL Cholesterol 85 mg/dL [facility] Comment: Interpretive Data [...] last revised on 2018. Chol/HDL ratio 4 [facility] Blood 07/29/2024 11:0 1 AM COSMETICS AND TOILETRIES SALESPERSON 07/29/2024 11:33 AM COSMETICS AND TOILETRIES SALESPERSON Narrative [facility] - 07/29/2024 12:10 PM COSMETICS AND TOILETRIES SALESPERSON This lab is being obtained as part of a Kidney transplant evaluation, is time sensitive, and should only be drawn during the evaluation visit at [facility] Lab. us Jossie King MD LAB BLOOD ORDERABL ES Final Result Performing Organization Address City/[facility]/ZIP Co de Phone Number [facility] Department [place] [address] * (ABNORMAL) TSH (10/27/2023 2:30 AM COSMETICS AND TOILETRIES SALESPERSON) Thyroid Stimulating Hormone 13.20(H) 0.30 - 4.20 mcIUnit/mL Blood 10/27/2023 2:30 AM COSMETICS AND TOILETRIES SALESPERSON 10/27/2023 2:42 AM COSMETICS AND TOILETRIES SALESPERSON us Lorne Mcnulty MD LAB BLOOD ORDERABLES Final Result [facility] [address] [place] [address] from Last 3 Months or Most Recently Relevant to Health Maintenance Insurance [facility]PA [facility] MEDICARE ADVANTAGE IDPA [facility] MEDICARE ADVANTAGE TRANSPLANT [employer] MEDICARE RISK IDPA TRANSPLANT [employer] MEDICARE RISK IDPA Advance Directives For more information, please contact: [phone] * Full Code (Latest Code Status on File) Date Activated Date Inactivated Comments 10/13/2023 11:32 PM 11/03/2023 11:42 PM * Full Code Date Activated Date Inactivated Comments 06/05/2022 6:17 AM 06/29/2022 6:20 PM * Full Code Date Activated Date Inactivated Comments 06/05/2022 4:43 AM 06/05/2022 4:43 AM * Full Code Date Activated Date Inactivated Comments 06/04/2022 9:55 PM 06/05/2022 4:43 AM Care Teams Pharmacy Services Representative Relationship Specialty Start Date End Date Aditya Castro MD [address] [place] [address] PCP - General 10/17/19 Alondra Lambert, RN [address] [facility] [address] [place] [address] Manager Recovery 03/06/24 Hamlet Ortega Jr., MD [address] [place] [address] [phone] Consulting Physician Cardiovascular Disease 05/10/24 Leandro Reyes MD [address] [place] [address] Consulting Physician Nephrology 07/30/24
--- OUTSIDE RECORDS SUMMARY | 2024-11-22 18:33 | XMS_ITS | Encounter Summary ---
Author Organization [facility] Address [address] [address] Phone Care Team Providers Care Associate Pathologist Name Role Phone Unavailable Primary Care Provider Unavailabl e Reason for Visit * Reason Comments Med Refill Encounter Details Date Type Department Care Team (Late st Contact Info) Description 02/13/2019 Refill [facility] [address] [address] Leandro Reyes MD [address] [address] Social History Tobacco Use Types [...]
--- OUTSIDE RECORDS SUMMARY | 2024-11-22 18:33 | XMS_ITS ---
Author Organization [facility] Address [address] [place] [address] Care Team Providers Care Stripping Cutter And Winder Name Role Phone Aditya Castro MD Primary Care Provider [phone] Alondra Lambert RN Unavailable [phone] Shannon Brock MD, [place] P. Unavailable [phone] Leandro eRyes MD Unavailable [phone] Dialysis Access Sites Type Status Location Placement Date Removal Da te Peritoneal Dialysis Catheter Continuous cycling Active Hemodialysis Cath Double Inactive Right N emiliano (side) - Anterior 06/18/2022 06/25/2022 Hemodialysis Cath Triple Inactive Neck - Anterior 202106/16/2022 Procedures Procedure Name Priority Date/Time Associated Diagnosis Comments CARDIOLOGY DOCUMENT SCAN Routine 09/08/2024 11:26 AM INBOUND SALES REPRESENTATIVE CARDIOLOGY DOCUMENT SCAN Routine 09/07/2024 11:24 AM INBOUND SALES REPRESENTATIVE CARDIOLOGY DOCUMENT SCAN Routine 09/05/2024 11:06 AM INBOUND SALES REPRESENTATIVE HEPATITIS C ANTIBODY Routine 07/29/2024 11:01 AM INBOUND SALES REPRESENTATIVE End stage renal disease (HCC) EGFR Routine 07/29/2024 11:01 AM INBOUND SALES REPRESENTATIVE End stage renal disease (HCC) HEMOGLOBIN A1C Routine 07/29/2024 11:01 AM INBOUND SALES REPRESENTATIVE End stage renal disease (HCC) LIPID PANEL Routine 07/29/2024 11:01 AM INBOUND SALES REPRESENTATIVE End stage renal disease (HCC) PSA SCREEN Routine 07/29/2024 11:01 AM INBOUND SALES REPRESENTATIVE End stage renal disease (HCC) TSH Routine 10/27/2023 2:30 AM INBOUND SALES REPRESENTATIVE from Last 3 Months or Most [...] 1 tablet (25 mcg total) by mouth [employer] before breakfast 30 tablet 1 11/04/19 24 [...] mg SL tablet 12/28/19 18 Active peg 447-bhntldhblzom-kz ycerin (ARTIFICAL TEARS) 1-0.2-0.2 % ophthalmic solution 1 drop 4 (four) times a day 07/07/20 22 Active potassium chloride ER 20 mEq CR tablet Active Active Problems Problem Noted Date Diagnosed Date End stage renal disease 07/29/2024 Nonrheumatic aortic valve stenosis 11/22/2023 Status post aortic valve replacement 11/22/2023 Status post coronary artery bypass grafting 10/2023 CAD in [place] artery 10/13/2023 Anemia 06/22/2022 Assessment & Plan (06/29/2022 10:12 AM INBOUND SALES REPRESENTATIVE): Stable, likely 2/2 anemia from ESRD, [...] 06/22/2022 Assessment & Plan (06/29/2022 10:12 AM INBOUND SALES REPRESENTATIVE): - Renal consulted, s/p CRRT in the ICU now back on PD. Tolerated well and nephrology following - Trialysis catheter removed - Continue vitamins for renal bone mineral disease. Assessment & Plan (06/28/2022 3:29 PM INBOUND SALES REPRESENTATIVE): - Renal consulted, s/p CRRT in [...] 06/22/2022 Assessment & Plan (06/29/2022 10:12 AM INBOUND SALES REPRESENTATIVE): C/b cardiogenic shock requiring impella in the setting of cath and AHRF 2/2 pulmonary edema, now resolved. TTE demonstrating recovered EF 65% with grade I diastolic dysfunction. - metop as above - continue low dose losartan 12.5mg daily, ok per nephro. Tolerating well - volume management per PD Assessment & Plan (06/28/2022 3:29 PM INBOUND SALES REPRESENTATIVE): C/b cardiogenic shock requiring impella in [...] 06/22/2022 Assessment & Plan (06/29/2022 10:12 AM INBOUND SALES REPRESENTATIVE): Converted to NSR overnight on 06/24. CHADsVASc of 4 not on anticoagulation prior to admission. - cardiology consulted - recommended ongoing rate control - holding off on a/c with high risk for bleeding while on DAPT - reduced metop to 25mg BID in the setting of hypotension, HR 70s NSR Assessment & Plan (06/28/2022 3:30 PM INBOUND SALES REPRESENTATIVE): Converted to NSR overnight on 06/24. [...] 08/22/2021 Assessment & Plan (06/29/2022 10:11 AM INBOUND SALES REPRESENTATIVE): With recurrent chest pain post-cath. He [...] today Assessment & Plan (06/28/2022 3:30 PM INBOUND SALES REPRESENTATIVE): With recurrent chest pain post-cath. He [...] 06/22/2022 Assessment & Plan (06/29/2022 10:11 AM INBOUND SALES REPRESENTATIVE): Secondary to NSTEMI, s/p Impella since removed on 06/10. Resolved. Assessment & Plan (06/23/2022 4:55 PM CDT): Secondary to NSTEMI, s/p Impella since removed on 06/10. Resolved. Assessment & Plan (06/22/2022 8:22 PM CDT): -Secondary to NSTEMI, s/p Impella since removed on 06/10. Acute hypoxemic respiratory failure 06/09/2022 Assessment & Plan (06/29/2022 10:12 AM INBOUND SALES REPRESENTATIVE): Secondary to ACS and flash pulmonary [...] (06/10/2022): Added automatically from request for surgery [id number] Abnormal cardiovascular stress test 12/29/2020 Overview (12/29/2020): Added automatically from request for surgery [id number] 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n ative artery of [place] heart with stable angina pectoris ([facility]) 05/23/2017 History of coronary artery stent [...] 01/18/2013 Assessment & Plan (06/29/2022 10:12 AM INBOUND SALES REPRESENTATIVE): A1c well controlled on admission. He [...] session Assessment & Plan (06/28/2022 3:28 PM INBOUND SALES REPRESENTATIVE): A1c well controlled on admission. He [...] materials from doctor or pharmacy Never 12/01/2023 [facility] Utilities Answer Date Recorded In the past 12 months has th e Embrane, gas, oil, or water company threatened to [...] week 08/01/2024 How often do you attend oriental orthodox or orthodox serv ices? Never 08/01/2024 Do you belong [...] time in the past 12 m [facility] [place], were you homeless or living in a senior care (including now)? No 08/01/2024 Personal Safety Answer Date Recorded Have you ever been in or are you currently in a harmful physical or emotional relationship or is someone making you feel afraid or unsafe? 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 Male 3:42 AM INBOUND SALES REPRESENTATIVE Gender Identity Not on file Sexual Orientation Not on file Last Filed Vital Signs Vital Sign Reading Time Taken Comments Blood Pressure 122/75 07/29/2024 1:00 PM INBOUND SALES REPRESENTATIVE Pulse 116 07/29/2024 1:00 PM INBOUND SALES REPRESENTATIVE Temperature 36.8 C (98.2 F) 07/29/2024 1:00 PM INBOUND SALES REPRESENTATIVE Respiratory Rate 16 12/01/2023 11:1 3 AM CDT Oxygen Saturation 96% 12/01/2023 11: 13 AM CDT Inhaled Oxygen Concentration - - Weight 121.2 kg (267 lb 1.6 oz) 07/29/2024 1:00 PM INBOUND SALES REPRESENTATIVE Height 177.8 cm (5' 10 ) 07/29/2024 1:00 PM INBOUND SALES REPRESENTATIVE Body Mass Index 38.32 07/29/2024 1:00 PM INBOUND SALES REPRESENTATIVE Results * Cardiology Document Scan (09/08/2024 11:26 AM INBOUND SALES REPRESENTATIVE) Anatomical Region Laterality Modality Other us Juan Christianson MD [facility] PROCEDU RES Final Result * Cardiology Document Scan (09/07/2024 11:24 AM INBOUND SALES REPRESENTATIVE) Anatomical Region Laterality Modality Other us Juan Christianson MD CV CARDIAC SERVICES PROCEDU RES Final Result * Cardiology Document Scan (09/05/2024 11:06 AM INBOUND SALES REPRESENTATIVE) Anatomical Region Laterality Modality Other us Lalit Machuca MD CV CARDIAC SERVICES PROCEDURES F inal Result * (ABNORMAL) eGFR (07/29/2024 11:01 AM INBOUND SALES REPRESENTATIVE) eGFR 7(L) >=60 mL/min/1. 73 m2 Comment: [...] reviewed 2021. Blood 07/29/2024 11:0 1 AM INBOUND SALES REPRESENTATIVE 07/29/2024 11:33 AM INBOUND SALES REPRESENTATIVE Result [facility] Jossie King MD LAB BLOOD ORDERABL ES Final Result Performing Organization Address [facility] [address]/[facility] de Phone Number [facility] [address] [place] [address] * PSA screen (07/29/2024 11:01 AM INBOUND SALES REPRESENTATIVE) PSA-Total 0.55 <=3.90 ng/mL Comment: Interpretive [...] revised 21. Blood 07/29/2024 11:0 1 AM INBOUND SALES REPRESENTATIVE 07/29/2024 11:33 AM INBOUND SALES REPRESENTATIVE Narrative [facility] - 07/29/2024 12:39 PM INBOUND SALES REPRESENTATIVE This lab is being obtained as part of a Kidney transplant evaluation, is time sensitive, and should only be drawn during the evaluation visit at [facility] 3C Lab. Jossie King MD LAB BLOOD ORDERABL ES Final Result Performing Organization Address [facility] [address]/[facility] Co de Phone Number [facility] [address] [place] [address] * Hepatitis C antibody Blood (07/29/2024 11:01 AM INBOUND SALES REPRESENTATIVE) Pathologist [facility] Hep C Ab Nonreactive Nonreactive Comment:Antibodies to HCV no t detected. Does NOT exclude the possibility of recent exposure to HCV. Current interpretive data was last revised on 22 Blood 07/29/2024 11:0 1 AM INBOUND SALES REPRESENTATIVE 07/29/2024 11:32 AM INBOUND SALES REPRESENTATIVE Narrative [facility] - 07/29/2024 12:47 PM INBOUND SALES REPRESENTATIVE This lab is being obtained as part of a Kidney transplant evaluation, is time sensitive, and should only be drawn during the evaluation visit at [address] Lab. Jossie King MD LAB MICROBIOLOGY - GENERAL ORDERABLES Final Result Performing Organization Address [facility] [address]/[facility] Co de Phone Number [facility] Department of [address] [place] [address] * (ABNORMAL) Hemoglobin A1c (07/29/2024 11:01 AM INBOUND SALES REPRESENTATIVE) Hgb A1C 9.0(H) 4.0 - 5.6 % [...] fasting glucose. Blood 07/29/2024 11:0 1 AM INBOUND SALES REPRESENTATIVE 07/29/2024 11:34 AM INBOUND SALES REPRESENTATIVE Narrative [facility]DRA [facility] - 07/29/2024 11:53 AM INBOUND SALES REPRESENTATIVE This lab is being obtained as part of a Kidney transplant evaluation, is time sensitive, and should only be drawn during the evaluation visit at [address] Jossie King MD LAB BLOOD ORDERABL ES Final Result Performing Organization Address [facility] [address]/[facility] Co de Phone Number [facility] [address] [place] [address] * (ABNORMAL) Lipid panel (07/29/2024 11:01 AM INBOUND SALES REPRESENTATIVE) Pathologist [facility] Cholesterol 114 30 [...] on 2018. Triglycerides 66 <=149 mg/dL [facility] Comment: Interpretive Data Ages < [...] on 2018. HDL 29(L) >=40 mg/dL [facility] Comment: Interpretive Data Ages < [...] 2018. LDL, calculated 71 <=129 mg/dL [facility] Comment: Interpretive Data Ages < [...] [facility] Blood 07/29/2024 11:0 1 AM INBOUND SALES REPRESENTATIVE 07/29/2024 11:33 AM INBOUND SALES REPRESENTATIVE Narrative [facility] - 07/29/2024 12:10 PM INBOUND SALES REPRESENTATIVE This lab is being obtained as part of a Kidney transplant evaluation, is time sensitive, and should only be drawn during the evaluation visit at [facility] 3CAM Lab. us Jossie King MD LAB BLOOD ORDERABL ES Final Result [facility] Department [place] [address] * (ABNORMAL) TSH (10/27/2023 2:30 AM INBOUND SALES REPRESENTATIVE) Thyroid Stimulating Hormone 13.20(H) 0.30 - 4.20 mcIUnit/mL Blood 10/27/2023 2:30 AM INBOUND SALES REPRESENTATIVE 10/27/2023 2:42 AM INBOUND SALES REPRESENTATIVE us Lorne Mcnulty MD LAB BLOOD ORDERABLES Final Result [facility] [address] Department [place] [address] from Last 3 Months or Most Recently Relevant to Health Maintenance
--- OUTSIDE RECORDS SUMMARY | 2024-11-22 18:33 | XMS_ITS | Continuity of Care Document ---
Author Organization [facility] Address [address] [place] [address] [place] [address] Phone Care Team Providers Care Occupational Therapy Asst Name Role Phone Carlos Garcia Unavailable Unavailable Advance Directives Directive Yes / No Effective Date File Name No Information Encounters Encounter Description Practice Location Reason(s) For Visit Diagnoses Date Provider Providers Copied on Encounter [facility], [address], [place], [place], [id number], [place] tel:[phone] [facility] No Information Radha Gonzalez. [address] [place], [place], [facility], [place]. tel:[phone] Referring Provider: Yannick Remy, [facility] [address], [place], [place], [facility]. tel:[phone] Family History Family Member Type Diagnosis Age At Onset No Information Payers Payer name Insurance type Covered green party ID Authoriza tion(s) Medicaid [facility] [id number] Social History Type Description Quantity Date Captured [...]
--- OUTSIDE RECORDS SUMMARY | 2024-11-22 18:33 | XMS_ITS ---
Author Organization [facility] Address [address] [place] [address] Care Team Providers Care Rn Palliative Care Name Role Phone Aditya Castro MD Primary Care Provider [phone] Alondra Lambert RN Unavailable [phone] Shannon Brock MD, [place] P. Unavailable [phone] Leandro Reyes MD Unavailable [phone] Transplant Episode Kidney Candidate [facility] ([place], [place]) [facility] Evaluation began on 05/10/2024 Marked as Active on 05/10/2024 Reason: Evaluation - Standard Kidney CoordinatorAlondra Lambert RN Fax: N/A Email: N/A Scores Score Value Updated Exceptions/Reas ons CPRA Not available EPTS (Calc) 79 11/22/2024 Care Team Name Role Phone Fax Email Alondra Lambert RN Kidney Coordinator [phone] N/A N/A Melany Kelly Primary Whizzer Operator N/A N/A N/A Chris Richard Electrical And Radio Mechanic N/A N/A N/A Events Pre-Transplant Referred: 03/06/2024 Evaluation began: 05/10/2024 Dialysis History Dialysis History Start End Type Comments Center 10/16/2019 Peritoneal [facility] Information Center Phone Fax Address [facility] [phone] [address] [facility] [address] [facility] [address]
--- OUTSIDE RECORDS SUMMARY | 2024-11-22 18:35 | XMS_ITS | Encounter Summary ---
Author Organization [facility] Address [address] [place] [address] Care Team Providers Care Claim Trainee Name Role Phone Aditya Castro MD Primary Care Provider [phone] Encounter Details Date Type Department Care Team (Late st Contact Info) Description 04/15/2019 Telephone [facility] Oncology and Hematology - [place] [address] [facility] [address] [place] [address] Fernando Schmid MD [address] [facility] [address] [place] [address] Social History Tobacco Use Types [...] on filedocumented in this encounter Care Teams Claim Trainee Relationship Specialty Start Date End Date Aditya Castro MD PCP - General Student in an Organized Health Care Education/Training Program 09/11/18 documented as of this encounter
--- OUTSIDE RECORDS SUMMARY | 2024-11-22 18:35 | XMS_ITS | Encounter Summary ---
Author Organization [facility] Address [address] [place] [address] Care Team Providers Care Dock Clerk Name Role Phone Matthew Aditya Ellison Primary Care Provider Unavailab le Reason for Visit * Reason Onset Date Comments Med Question 06/25/2019 Encounter Details Date Type Department Care Team (Late st Contact Info) Description 06/25/2019 Telephone [facility] [address] [place] [address] Finn Kramer MD [address] [place] [address] Med Question Social History Tobacco Use Types [...] pt he is asking that we call [facility] at [phone] and talk to them about the compression stockings. I called and spoke with Kashif at [facility] and gave clarification the the mmHg I let them know that they should Be the 20-30mmHg . He understood and will get them ready for pt. Anali Connelly EL DRIER OPERATOR * Telephone Encounter - Theodore Huerta - 06/25/2019 10:40 AM CST Pt called saying patient pharmacy just needs clarification of a number on the prescription for compression socks. Please Advise. EL DRIER OPERATOR documented in this encounter Plan of Treatment Not on file documented as of this encounter Visit Diagnoses Not on filedocumented in this encounter Care Teams Dock Clerk Relationship Specialty Start Date End Date Aditya Castro Update Information PCP - General 03/06/19 documented as of this encounter
--- OUTSIDE RECORDS SUMMARY | 2024-11-22 18:35 | XMS_ITS | CONTINUITY OF CARE DOCUMENT ---
Author Name archana rindemian Address Unknown Organization [facility] Address [address] [place] [address] Phone [phone] Care Team Providers Care Varnish Dipper Name Role Phone Shannon ARNOLD, Hamlet Unavailable STEPHANIE CORREA MD Unavailable STEPHANIE CORREA MD Unavailable [phone] PROBLEMS Condition Status Date Provider Notes CABG post active Annemarie Connelly RN Valve replacement active Annemarie Connelly RN railroad crane operator anticoagulant therapy active Annemarie Connelly RN Family [...] In-person encounter Office Visit Hamlet Ortega MD [facility] - In-person encounter Office Visit Hamlet Ortega MD [facility] Atrial Fibrillation - In-person encounter Office Visit Hamlet Ortega MD [facility] - In-person encounter Office Visit Hamlet Ortega MD [facility] C A B G:Valve SurgeryCKD stage ESRD on dialysis GFR <15 - In-person encounter Office Visit Hamlet Ortega MD [facility] - In-person encounter Office Visit Hamlet Ortega MD [facility] - In-person encounter Office Visit Hamlet Ortega MD [facility] OverweightAortic insufficiency - In-person encounter Office Visit Hamlet Ortega MD [facility] - In-person encounter Office Visit Hamlet Ortega MD [facility] - In-person encounter Office Visit Hamlet Ortega MD [facility] - In-person encounter Office Visit Hamlet Ortega MD [facility] - In-person encounter Office Visit Hamlet Ortega MD [facility] - In-person encounter Office Visit Hamlet Ortega MD [facility] - In-person encounter Office Visit Hamlet Ortega MD [facility] - In-person encounter Office Visit Hamlet Ortega MD [facility] - In-person encounter Office Visit Hamlet Ortega MD [facility] - In-person encounter Office Visit Hamlet Ortega MD [facility] - In-person encounter Office Visit Hamlet Ortega MD [facility] - In-person encounter Office Visit Hamlet Ortega MD [facility] - In-person encounter Office Visit Hamlet Ortega MD [facility] Dizziness - In-person encounter Office Visit Hamlet Ortega MD [facility] - In-person encounter Office Visit Hamlet Ortega MD [facility] Office - In-person encounter Office Visit Hamlet Ortega MD [facility] - In-person encounter Office Visit Hmalet Ortega MD [facility] Family History of Hypertension:Coronary artery diseaseShortness [...] MD blood pressure, diastolic 79 mm[Hg] [facility] systolic 169 mm[Hg] Molly car[facility]illo [facility] oxygen saturation, oximetry 100 % [facility] pulse rate 94 /min [facility] weight E&M 281 [lb_av] [facility] height E&M 70 [in_i] Lexus [facility] blood pressure, diastolic 101 mm[Hg] [facility] [facility] blood pressure, systolic 157 mm[Hg] Vanna garay [facility] oxygen saturation, oximetry 96 % [facility] pulse [facility] 122 /min [facility] blood pressure, cuff size regular [facility] [facility] Body Mass Index (Ratio) 38.62 kg/m2 Zoë on [facility] weight in kilograms E&M 122.11 kg Zoë on [facility] weight E&M 269.2 [lb_av] [facility] height E&M 70 [in_i] [facility] height in centimeters E&M 177.80 cm Chaop [facility] Body Mass Index (Ratio) 38.16 kg/m2 Michael Ortega MD pulse rate 71 /min Marva Posley blood pressure, diastolic 71 mm[Hg] Le slie Posley blood pressure, systolic 147 mm[Hg] Les lie Posley oxygen saturation, oximetry 98 % Marva Posley respiratory rate E&M 15 /min Marva Posley blood pressure, cuff size regular Le slie Posley weight E&M 266 [lb_av] Mavra Posley height E&M 70 [in_i] Marva Posley [...] Connelly RN international normalized ratio (INR) 3.6 Annemraie Connelly RN Normal prothrombin time (patient) 43.2 [...] LinkLogic 3.5-5.2 sodium, serum 140 mmol/L LinkLogic [phone]/03/ 21 urea nitrogen/creatini ne ratio, serum 17 [...] Not Estab. platelet count 261 X10E3/UL [employer]Logic [phone]/03/ 21 red blood cell distribution width 13.9 [...] by mouth once a day Arabella Taylor railroad crane operator anticoagulant therapy warfarin 3 mg tablet completed Take 1 tablet by mouth every evening EXCEPT on Mon and Mon , take 1 and one half tablet. (4.5 mg) - Annemarie Connelly RN custodial anticoagulant therapy warfarin 2 mg tablet completed 1 tab on 01/19, 01/20, 01/21, 01/22 - Robin Villarreal RN levothyroxine 25 mcg tablet active Take 1 tablet by mouth every morning Annemarie Connelly RN warfarin 3 mg tablet completed Take 1 tablet by mouth every evening EXCEPT on Mon and take one half tablet. (1.5 mg) - Moustapha Koehler RN railroad crane operator anticoagulant therapy warfarin 2 mg tablet [...] Payer name Policy type / Coverage type [employer] red republican ID [id number] (PPO C-SNP) Commercial insurance company [id number] [employer] Medicaid 3 [id number] ADVANCE DIRECTIVES Name Date DISCUSSED - NO DECISION MADE TREATMENT PLAN Date Name Performer [id number],S, Hamlet guzman [place] [id number],S, Hamlet Ramada n [place] [id number],S, Hamlet Ramada n [place] [id number],S, Hamlet Ramada n [place] [id number],S, Hamlet Ramada n [place] [id number],S, Hamlet Ramada n [place] [id number],S, Hamlet Ramada n [place] [id number],S, Hamlet Ramada n [place] [id number],S, Hamlet Ramada n [place] [id number],S, Hamlet [place] [id number],S, Hamlet Ramada n [place] [id number],S, Hamlet Ramada n [place] [id number],S, Hamlet Ramada n [place] [id number],C,T he patient is using BiPAP on a regular basis. The patient has been benefiting from therapy and should continue use. Hamlet Ramadan [place] [id number],S, Hamlet Ramada n [place] [id number],S, Hamlet Ramada n [place] [id number],S, Hamlet Ramada n [place] [id number],S, Hamlet Ramada n [place] [id number],S, Hamlet Ramada n [place] [id number],S, Hamlet Ramada n [place] [id number],S, Hamlet Ramada n [place] [id number],S, Hamlet Ramada n [place] [id number],S, Hamlet Bloom n [id number],S, Hamlet Ramada n [id number],S, Hamlet Ramada n [id number],S, Hamlet Ramada n [id number],S, Hamlet Ramada n [id number],C,T he patient is using CPAP on a regular basis. The patient has been benefiting from therapy and should continue use. Hamlet Shannon ARNOLD [id number],B, Hamlet Bloom megan ARNOLD [id number],S, Hamlet Bloom n [id number],B, Hamlet Loredodewayne guzman [place] [id number],B, Hamlet Ramdewayne n [place] [id number],S, Hamlet Ramada n [place] [id number],S, Hamlet Ramada n [place] [id number],B, Hamlet Bloom n [place] [id number],S, Hamlet Bloom n [place] [id number],S,L ast stress 01/08 had some abnormalities that fit with known coronary anatomy. No significant symptoms at this point. Will follow closely, no cath at this point. Patient is encouraged to increase activity as tolerated, particularly exercise in form of walking on treadmill. Hamlet Ortega MD [id number],B, Hamlet Bloom megan ARNOLD [id number],S, Hamlet Ramdewayne n [id number],S, Hamlet Ramada n [id number],C,T he patient is using CPAP on a regular basis. The patient has been benefiting from therapy and should continue use. Hamlet Ortega MD [id number],S, Hamlet guzman MD [id number],S,L ast stress 01/08 had some abnormalities that [...] to see if EF has improved. Reviewed [facility] records from surgery and tests. [...] MD Cardiology Hamlet Ortega MD Cardiology Hamlet Ortgea MD Cardiology Hamlet Ortega MD Cardiology Hamlet [...] Will c heck ECHO and stress. Hamlet Oretga MD Cardiology follow up Hamlet cantu MD [...] Ortega MD completed Phone Anti-Coag Management Ramirez Nweberry MD completed Jacob Connelly RN completed Jacob Newberry MD complete d Jacob Sotver MD completed Jacob Newberry MD complete d [...]
[2024-11-22 18:37] LABS: Alanine Aminotransferase 34 U/L (6-50); Albumin Level 3.7 g/dL (3.5-5.1); Alkaline Phosphatase 99 U/L (38-126); Anion Gap 13 mmol/L (4-12); Aspartate Amino Transferase 32 U/L (17-59); Bilirubin,Total 0.9 mg/dL (0.2-1.3); Blood Urea Nitrogen 55 mg/dL (9-20); Calcium 8.4 mg/dL (8.4-10.2); Carbon Dioxide 24 mmol/L (22-30); Chloride 94 mmol/L (98-107); Estimated CRCL calculation 13 ml/min; Estimated Glomerular Filt Rate 8; Glucose 272 mg/dL (65-110); Potassium 4.1 mmol/L (3.4-5.0); Sodium 131 mmol/L (137-145)
[2024-11-22 18:50] LABS: Magnesium 1.7 mg/dL (1.6-2.3)
[2024-11-22] MEDS: IPRATROPIUM 0.5 MG/ALBUTEROL SULFATE 2.5 MG AMPUL.NEB 3 ML INHALATION ×3 (18:56)
[2024-11-22 19:00] LABS: INR 2.7; Partial Thromboplastin Time 32.8 Seconds (22.3-36.8); Prothrombin Time 29.3 Seconds (11.1-14.7)
[2024-11-22 19:01] LABS: NT Pro B Type Natriuretic Pept > 30000 pg/mL (19.9-100); Troponin I 0.247 ng/mL (0.000-0.034)
[2024-11-22] MEDS: methylPREDNISolone SOD SUCC 125 MG VIAL IV PUSH (19:21)
[2024-11-22] MEDS: FUROSEMIDE INJ 40 MG/4 ML VIAL IV PUSH (19:23)
--- NOTE | 2024-11-22 19:54 | PC.NURSE ---
This RN sent down blood cultures that was drawn from an IV start from day nurse Magalie ROLAND. Charge made aware.
[2024-11-22 20:01] LABS: Add Urine Microscopic? YES; Appearance Urine Cloudy (Clear); Bacteria Urine None Seen /hpf; Bilirubin Urine Negative (Negative); Blood Urine 3+ (Negative); Color Urine Yellow (Yellow); Glucose Urine UA 3+ mg/dL (Negative); Ketones Urine Trace mg/dL (Negative); Leukocyte Esterase Ur 2+ LEU/UL (Negative); Need Manual Microscopic Reviewed; Nitrate Urine Negative (Negative); Protein Urine 1+ mg/dL (Negative); RBC Urine >100 /hpf (0-2); Specific Grav Ur 1.029 (1.001-1.035); Squamous Epithelial Cell Urine None Seen /hpf (Few); Urobilinogen Urine 0.2 mg/dL (<2.0); WBC Urine 21-50 /hpf (0-3)
[2024-11-22 20:03] LABS: Amphetamine Screen Urine Negative (Negative); Barbiturate Screen Urine Negative (Negative); Benzodiazepines Screen Urine Negative (Negative); Cannabinoid Screen Urine Negative (Negative); Cocaine Screen Urine Negative (Negative); Methadone Screen Urine Negative (Negative); Opiate Screen Urine Negative (Negative); Phencyclidine Screen Urine Negative (Negative)
[2024-11-22 20:25] LABS: Lactic Acid Reflex 1.9 mmol/L (0.7-2.0)
[2024-11-22 20:29] LABS: CRP 0.7 mg/dL (<1.0)
[2024-11-22] MEDS: SODIUM CHLORIDE 0.9% IV 1,000 ML 500 ML IV CONT (20:29)
[2024-11-22 20:41] LABS: Troponin I 0.252 ng/mL (0.000-0.034)
[2024-11-22] MEDS: AZITHROMYCIN 500 MG/NS 250 ML 500 MG/250 ML BAG 250 MG IVPB (21:01)
[2024-11-22 21:22] LABS: Glucose Point of Care 350 mg/dl (65-105)
--- NOTE | 2024-11-22 21:24 | P.HP_ITS ---
H&P: HPI History of Present Illness Date/Time: 11/22/24 21:24 Chief Complaint: Shortness of breath Narrative: This is a pleasant 54-year-old male with an extensive medical history including CAD status post CABG, peritoneal dialysis, obesity, insulin-dependent diabetes mellitus, atrial fibrillation, mechanical aortic valve replacement on warfarin, who presents to [place] ER with complaint of shortness of breath worsening for 6 days. It is worse with exertion and he is now on able to lie flat. Admits to cough which is productive of clear sputum. Denies leg swelling, fever, chest pain. He has been compliant with all of his medications and peritoneal dialysis. ER workup revealed atrial fibrillation in the 110s, blood pressure 133/85, saturating well on room air, respiratory rate 16. INR 2.7, sodium 131, BUN 55, serum creatinine 7.41, glucose 272, troponin 0.247, BNP [address]83. Chest CT demonstrated a large left-sided pleural effusion with interval enlargement along with left lower lobe infiltrate. CC received DuoNebs, Solu-Medrol, 1 L normal saline, ceftriaxone, azithromycin, Lasix. Review of Systems Review of Systems: All systems reviewed & are unremarkable except as noted in HPI and below (HPI) [facility] Past Medical History Medical History Chronic back pain Hematuria Right hand dominant Insulin dependent diabetes mellitus Chronic anticoagulation Paroxysmal atrial fibrillation Renal osteodystrophy Seizure X1 with etiology unknown End-stage renal disease on peritoneal dialysis Essential hypertension Gout Deep venous thrombosis Chronic right popliteal DVT. Coronary artery disease History of several stents including complex procedure at [place] w/ stenting of a heavily calcified CX on OM using shockwave treatment. Gastroesophageal reflux disease Congestive heart failure Echocardiogram May 2017 EF of 50% with hypokinetic apical, inferior and basal inferior lateral segment, mild enlargement of left atrium. Anemia in chronic kidney disease Type 1 diabetes mellitus Onset around age 13. Diabetic retinopathy Diabetic peripheral neuropathy Obstructive sleep apnea With inconsistent CPAP use. Secondary hyperparathyroidism of renal origin Anxiety Arthritis Hyperlipidemia Surgical History Surgical History S/P triple vessel bypass Sep 2023; [facility] History of coronary angioplasty with insertion of stent Drug-eluting stents for high-grade OM 99% occlusion 05/2022. History of hernia repair Peritoneal dialysis catheter in place History of cataract extraction With lens implant History of open reduction and internal fixation (ORIF) procedure (1982) Left lower extremity fracture. And the right hip pinning when he was in the 8th grade History of arthroscopy of left knee History of anterior cruciate ligament surgery (2000) Left knee History of bilateral carpal tunnel release Right 05/03/2018. Left 06/02/2018. History of appendectomy (2006) History of cardiac catheterization 01/21/2021 catheterization at [facility], Dr. Hoover done: Little change from prior catheterization. Patent stents in the RCA and PDA. P reviously jailed posterolateral is occluded and development of a 50% stenosis of a branch of om 1. Normal LV function. :August 2019 demonstrated patent stents with 40% stenosis of 1 vessel with no stents or angioplasty performed per patient report. :November 2018 at [facility] - stent x3. :March 2017 demonstrating mild diffuse coronary disease 80% lesion small sub branch of obtuse marginal 1 and 90% stenosis distal RCA into the origin of the PDA with PTCA and stent to the RPDA/distal RCA performed by Dr. Petit. Family History Family History Father , in his late 60s Acute myocardial infarction Premature coronary artery disease; <65yo CHF (congestive heart failure) Dementia Hypertension S/P triple vessel bypass 1980s Mother Lung cancer Hypertension Daughter Celiac disease Social History Social History Social History: Surrogate medical decision maker: Hodan Daigle (daughter) or Lorne Daigle (brother). Code status: Full code. Smoking status: Never smoker Second hand tobacco smoke exposure: No Alcohol intake: never Substance use: never Substance use type: does not use Do You Feel Safe in your Home?: Yes Lack of Transportation: No Lack of Food: Never True Current Housing: I Have Housing Concerned About Future Housing: No Difficulty Paying Gas/Electric Bills: No Difficulty Paying for Meds: No Currently Unemployed: No Education: Decline to Answer Difficulty w/ Childcare or Family Care: No Living arrangements: alone Additional living arrangements comments: He is single and has 3 children. 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 Spiritual care concerns: No Agree to blood products: Yes Meds Home Medications and Allergies Home Medications ?Medication ?Instructions ?Recorded ?Confirmed ?Type calcitriol 0.25 mcg capsule 0.25 mcg PO QAM 06/04/19 10/21/24 History ergocalciferol (vitamin D2) 1,250 50,000 unit PO WEEKLY 06/04/19 10/21/24 History mcg (50,000 unit) capsule (Vitamin D2) nitroglycerin 0.4 mg sublingual 0.4 mg sublingual Q5-15M PRN Chest 06/04/19 10/21/24 History tablet Pain ezetimibe 10 mg tablet (Zetia) 10 mg PO DAILY 09/09/19 10/21/24 History cetirizine 10 mg tablet (All Day 10 mg PO DAILY 12/26/19 10/21/24 History Allergy (cetirizine)) atorvastatin 80 mg tablet 80 mg PO DAILY 11/26/20 10/21/24 History albuterol sulfate 90 mcg/actuation 1 inh inhalation QID PRN shortness 01/12/23 10/21/24 Rx aerosol inhaler (ProAir HFA) of breath or wheezing #8.5 grams potassium chloride 20 mEq 20 meq PO DAILY Cramps 05/20/23 10/21/24 History tablet,extended release febuxostat 40 mg tablet 40 mg PO QPM 07/25/23 10/21/24 History linaclotide 72 mcg capsule 72 mcg PO DAILY PRN Diarrhea 07/25/23 10/21/24 History (Linzess) icosapent ethyl 1 gram capsule 1 g PO QID 02/16/24 10/21/24 History (Vascepa) torsemide 100 mg tablet 100 mg PO DAILY 02/16/24 10/21/24 History insulin pump cart,automated,BT #45 ea 05/16/24 10/21/24 Rx (Omnipod 5 G6 Pods (Gen 5) subcutaneous cartridge) omeprazole 20 mg capsule,delayed 20 mg PO DAILY 06/06/24 10/21/24 History release amlodipine 10 mg tablet 10 mg PO HS 07/30/24 10/21/24 History calcium acetate(phosphat bind) 667 667 mg PO QID 07/30/24 10/21/24 History mg capsule glucagon 1 mg/0.2 mL subcutaneous See Rx Instructions .Route 07/30/24 10/21/24 History auto-injector (Gvoke HypoPen .COMPLEX PRN Hypoglycemia 2-Pack) cyclobenzaprine 10 mg tablet 5 - 10 mg (0.5 - 1 x 10 mg) PO TID 08/11/24 10/21/24 Rx PRN muscle spasm #10 tabs famotidine 40 mg tablet 40 mg PO HS 08/17/24 10/21/24 History lidocaine 5 % topical patch 1 patch transdermal Q24H 08/17/24 10/21/24 History aspirin 81 mg capsule 81 mg PO DAILY 08/31/24 10/21/24 History colchicine 0.6 mg capsule 0.6 mg PO 3XW 08/31/24 10/21/24 History gentamicin 0.1 % topical cream 1 applic topical HS 08/31/24 10/21/24 History tamsulosin 0.4 mg capsule 0.4 mg PO BID 08/31/24 10/21/24 History warfarin 5 mg tablet 5 mg PO DAILY #30 tabs 09/10/24 10/21/24 Rx pen needle, diabetic 32 gauge x #400 ea 09/11/24 10/21/24 Rx /32 (BD Lucrecia 2nd Gen Pen Needle) blood sugar diagnostic (OneTouch #300 ea 09/16/24 10/21/24 Rx Verio test strips) blood-glucose transmitter (Dexcom #1 ea 09/16/24 10/21/24 Rx G6 Transmitter device) insulin NPH isoph U-100 human 100 30 unit (0.3 mL) subcut DAILY 90 09/23/24 10/21/24 Rx unit/mL (3 mL) subcutaneous pen days #27 mL (Humulin N NPH U-100 Insulin KwikPen) insulin aspart U-100 100 unit/mL 15 unit subcut TIDWMEAL 09/23/24 10/21/24 History (3 mL) subcutaneous pen (Novolog FlexPen U-100 Insulin aspart) metoprolol tartrate 50 mg tablet 100 mg PO DAILY 09/23/24 10/21/24 History levothyroxine 25 mcg tablet 25 mcg PO DAILY #90 tabs 11/04/24 Rx Dexcom G6 Sensor (blood-glucose #9 ea 11/06/24 Rx sensor) insulin glargine U-300 conc 300 50 unit (0.1667 mL) subcut DAILY 11/18/24 Rx unit/mL (1.5 mL) subcutaneous pen 90 days #18 mL (Toujeo SoloStar U-300 Insulin) Allergies Allergy/AdvReac Type Severity Reaction Status Date / Time allopurinol Allergy Severe Other Verified 11/22/24 17:56 iodine Allergy Severe Rash Verified 11/22/24 17:56 iohexol (From CONTRAST - CT, Allergy Severe Difficulty Verified 11/22/24 17:56 XRAY) Breathing ticagrelor Allergy Intermediate Rash Verified 11/22/24 17:56 Vital Signs Vital Signs - 24 hr 11/22/24 18:08 11/22/24 18:30 11/22/24 18:56 Temperature 97.2 F L Pulse Rate 98 118 H Respiratory Rate 17 16 Blood Pressure 136/88 Pulse Oximetry 97 94 Oxygen Delivery Room Air 11/22/24 19:25 11/22/24 19:26 11/22/24 20:14 Temperature Pulse Rate 103 H 114 H 115 H Respiratory Rate 17 16 Blood Pressure 133/85 Pulse Oximetry 100 Oxygen Delivery Exam Const: General: comfortable and no acute distress HENMT: Mouth: Yes moist mucous membranes Eyes: Pupils: Equal, round and reactive pupils present Neck: Neck: supple Resp: Effort & Inspection: normal respiratory effort Other: Bibasilar crackles, left lower lung field decreased air entry, coarse breath sounds. Cardio: Rate: tachycardic Rhythm: abnormal rhythm Heart sounds: no gallops, no murmurs and no rubs GI: GI Palp: Yes Soft to palpation and No Tenderness to palpation present (GI) Other: Protuberant abdomen Neuro: Motor exam (neuro): 5/5 motor strength present throughout Extrem: General: edema (Trace pitting edema) H&P: Results Labs Labs: Short CBC 11/22/24 Range/Units 18:22 WBC 5.9 (4.5-10.0) K/mm3 Hgb 12.2 L (14.0-18.0) g/dL Hct 38.0 L (42.0-52.0) % Plt Count 157 (150-375) k/mm3 BMP 11/22/24 18:22 Sodium 131 L Potassium 4.1 Chloride 94 L Carbon Dioxide 24 BUN 55 H Creatinine 7.41 H Glucose 272 H Calcium 8.4 Cardiac Enzymes 11/22/24 11/22/24 Range/Units 18:22 20:08 Troponin I 0.247 H* 0.252 H* (0.000-0.034) ng/mL Liver Function 11/22/24 Range/Units 18:22 Total Bilirubin 0.9 (0.2-1.3) mg/dL AST 32 (17-59) U/L ALT 34 (6-50) U/L Alkaline Phosphatase 99 (38-126) U/L Albumin 3.7 (3.5-5.1) g/dL Urine 11/22/24 Range/Units 19:41 Urine Color Yellow (Yellow) Urine Appearance Cloudy H (Clear) Urine pH 5.0 (5.0-9.0) Ur Specific [place] 1.029 (1.001-1.035) Urine Protein 1+ H (Negative) mg/dL Urine Glucose (UA) 3+ H (Negative) mg/dL Assessment and Plan Assessment and plan (1) Pleural effusion, left: Code(s): J90 - Pleural effusion, not elsewhere classified Status: Acute (2) Pneumonia: Code(s): J18.9 - Pneumonia, unspecified organism Status: Acute Plan This is a pleasant 54-year-old male with an extensive medical history including CAD status post CABG, peritoneal dialysis, obesity, insulin-dependent diabetes mellitus, atrial fibrillation, mechanical aortic valve replacement on warfarin, who presents to [place] ER with complaint of shortness of breath worsening for 6 days. It is worse with exertion and he is now on able to lie flat. Admits to cough which is productive of clear sputum. Denies leg swelling, fever, chest pain. He has been compliant with all of his medications and peritoneal dialysis. ER workup revealed atrial fibrillation in the 110s, blood pressure 133/85, saturating well on room air, respiratory rate 16. INR 2.7, sodium 131, BUN 55, serum creatinine 7.41, glucose 272, troponin 0.247, BNP [address]01. Chest CT demonstrated a large left-sided pleural effusion with interval enlargement along with left lower lobe infiltrate. CC received DuoNebs, Solu-Medrol, 1 L normal saline, ceftriaxone, azithromycin, Lasix. ----- NPO midnight. Left-sided thoracentesis ordered. Nephrology consulted from ER. Continue peritoneal dialysis. Ceftriaxone and azithromycin scheduled for pneumonia. Troponins flat, trend to peak. No chest pain. ----- SCDs. Full code. Renal diabetic diet. Accu-Cheks. NPO midnight. Hospitalist MIPS Advance Care Plan I have confirmed that the patient's Advanced Care Plan is present, code status is documented, or surrogate decision maker is listed in patient medical record.: Yes Medication Reconciliation I have utilized all available resources to obtain, update and review the patients current medications (includes all prescriptions, OTC, herbals, cannabis, and nutritional supplements).: Yes
[2024-11-22] MEDS: INSULIN ASPART (*BKC) 100 UNITS/ML SUB-Q (21:33)
[2024-11-22 21:55] LABS: Glucose Point of Care 369 mg/dl (65-105)
--- NOTE | 2024-11-22 22:23 | ADMGEN ---
This patient, Juvenal Daigle Jr., was admitted to IMU Room 210-01 at 2215. Patient/family oriented to hospital policies and general routines including ID bracelet, bed and alarms, visiting hours, pain management, procedures, bathroom and other care routines, personal items, smoking policy, room service/diet, and visiting hours. Information on how to activate the Rapid Response Team has been discussed. Patient/Family are encouraged to report perceived risks to care and to ask questions if they do not understand what they are told or what they should do.
[2024-11-23] VITALS (21 sets, daily range): BP systolic 122–138; BP diastolic 71–89; PULSE 79–123; RESP 14–20; TEMP 36.7–37.1; O2SAT 91–100
[2024-11-23] MEDS: METOPROLOL TARTRATE 50 MG TAB PO ×3 (00:16→20:46)
[2024-11-23] MEDS: guaiFENesin/DEXTROMETHORPHAN 10 ML UDC PO (00:16)
[2024-11-23] MEDS: INSULIN HUMAN NPH (*BKC) 100 UNITS/ML 20 UNITS SUB-Q (00:17)
[2024-11-23 00:35] LABS: Glucose Point of Care 372 mg/dl (65-105)
[2024-11-23 04:02] LABS: Glucose Point of Care 369 mg/dl (65-105)
[2024-11-23 04:27] LABS: Eosinophils Percent Auto 0.2 % (0-4.4); Hematocrit 37.2 % (42.0-52.0); Hemoglobin 11.9 g/dL (14.0-18.0); Immature Granulocyte Absolute 0.02 K/mm3 (0.00-0.031); Immature Granulocyte Percent A 0.5 % (0-0.5); Lymphocytes Absolute Auto 0.42 K/mm3 (0.9-3.2); Lymphocytes Percent Auto 10.2 % (18.3-44.2); Mean Corpuscular Hemoglobin 29.8 pg (26-34); Mean Platelet Volume 10.6 fl (7.4-10.4); Monocytes Absolute Auto 0.1 K/mm3 (0.1-0.6); Monocytes Percent Auto 2.4 % (2.6-8.5); Neutrophils Absolute Auto 3.6 K/mm3 (1.3-6.7); Neutrophils Percent Auto 86.7 % (45.5-73.1); Platelet Count Result 143 k/mm3 (150-375); Red Cell Distribution Width 13.8 % (11.5-14.5); White Blood Count 4.1 K/mm3 (4.5-10.0)
[2024-11-23 04:37] LABS: Albumin Level 3.6 g/dL (3.5-5.1); Alkaline Phosphatase 84 U/L (38-126); Anion Gap 16 mmol/L (4-12); Aspartate Amino Transferase 33 U/L (17-59); Bilirubin,Total 0.8 mg/dL (0.2-1.3); Blood Urea Nitrogen 58 mg/dL (9-20); Calcium 8.2 mg/dL (8.4-10.2); Carbon Dioxide 22 mmol/L (22-30); Chloride 93 mmol/L (98-107); Estimated CRCL calculation 13 ml/min; Estimated Glomerular Filt Rate 7; Glucose 369 mg/dL (65-110); Magnesium 1.6 mg/dL (1.6-2.3); Potassium 4.5 mmol/L (3.4-5.0); Sodium 131 mmol/L (137-145)
[2024-11-23 04:42] LABS: INR 2.9; Prothrombin Time 30.3 Seconds (11.1-14.7)
[2024-11-23 04:45] LABS: Alanine Aminotransferase 43 U/L (6-50)
[2024-11-23 05:01] LABS: Lactate Dehydrogenase 237 U/L (120-246)
[2024-11-23] MEDS: INSULIN ASPART (*BKC) 100 UNITS/ML SUB-Q ×2 (05:19→11:25)
[2024-11-23] MEDS: LEVOTHYROXINE SODIUM 25 MCG TABLET PO (05:22)
--- NOTE | 2024-11-23 09:15 | P.PNIM_ITS ---
Progress Note: A&P Assessment and Plan (1) Pleural effusion, left: Code(s): J90 - Pleural effusion, not elsewhere classified Status: Acute (2) Pneumonia: Code(s): J18.9 - Pneumonia, unspecified organism Status: Acute Plan This is a pleasant 54-year-old male with an extensive medical history including CAD status post CABG, peritoneal dialysis, obesity, insulin-dependent diabetes mellitus, atrial fibrillation, mechanical aortic valve replacement on warfarin, who presents to [facility] with complaint of shortness of breath worsening for 6 days. It is worse with exertion and he is now on able to lie flat. Admits to cough which is productive of clear sputum. Denies leg swelling, fever, chest pain. He has been compliant with all of his medications and peritoneal dialysis. ER workup revealed atrial fibrillation in the 110s, blood pressure 133/85, saturating well on room air, respiratory rate 16. INR 2.7, sodium 131, BUN 55, serum creatinine 7.41, glucose 272, troponin 0.247, BNP [address]. Chest CT demonstrated a large left-sided pleural effusion with interval enlargement along with left lower lobe infiltrate. He received DuoNebs, Solu-Medrol, 1 L normal saline, ceftriaxone, azithromycin, Lasix. ----- Left pleural effusion could be parapneumonic. Thoracentesis has been planned.however cannot perform due to anticoagulant use. will hodl warfarin, need bridging anticoagulation. Left-sided pneumonia with left-sided pleural effusion: Ceftriaxone and azithromycin scheduled for pneumonia. Thoracentesis ordered Elevated troponin with flat trend. End-stage renal disease on peritoneal dialysis nephrology consulted. DVT prophylaxis SCDs. Code status Full code. Diet Renal diabetic diet. Accu-Cheks. CAD status post CABG History of popliteal DVT Congestive heart failure combined systolic diastolic Hypertension Hyperlipidemia BEN not consistently on CPAP Paroxysmal Atrial fibrillation History of mechanical aortic valve replacement on warfarin Hypothyroidism Cholelithiasis Subjective Date/time seen: 11/23/24 09:15 Interval history: feels better. cough and sob still persist . discused need to hold warfarin and bridge for thoracentesis. Review of Systems Review of Systems: All systems reviewed & are unremarkable except as noted in HPI and below (HPI) Exam Narrative: GENERAL: Well appearing, well-nourished, non-toxic, in no acute distress. HEAD: Normocephalic, atraumatic. NECK: Supple. No adenopathy, no masses. RESPIRATORY: Airway patent, respirations nonlabored. Crackles to auscultation left. CARDIOVASCULAR: Regular rate and rhythm without murmurs, rubs, or gallops. Peripheral pulses 2+ and equal bilaterally. ABDOMINAL: Soft, nontender, nondistended, no hepatosplenomegaly. Normoactive BS. MUSCULOSKELETAL: Moves all extremities. Strength/ROM intact without gross deformities. SKIN: Warm, dry, normal color. No rashes. NEURO: A&O X3. Speech clear. Cranial nerves II-XII intact. No ataxic movements. PSYCHIATRIC: Appropriate mood and affect. Normal interaction. Objective Data Vital Signs Vital Signs: Vital Signs - 24 hr 11/22/24 18:08 11/22/24 18:30 11/22/24 18:56 Temperature 97.2 F L Pulse Rate 98 118 H Respiratory Rate 17 16 Blood Pressure 136/88 Pulse Oximetry 97 94 Oxygen Delivery Room Air Fraction of Inspired Oxygen 11/22/24 19:25 11/22/24 19:26 11/22/24 20:14 Temperature Pulse Rate 103 H 114 H 115 H Respiratory Rate 17 16 Blood Pressure 133/85 Pulse Oximetry 100 Oxygen Delivery Fraction of Inspired Oxygen 11/22/24 22:00 11/22/24 22:06 11/22/24 22:15 Temperature 97.7 F Pulse Rate 122 H 122 H 123 H Respiratory Rate 98 H 21 H 18 Blood Pressure 123/86 123/86 119/75 Pulse Oximetry 21 L 98 95 Oxygen Delivery Fraction of Inspired Oxygen 11/22/24 23:30 11/22/24 23:49 11/22/24 23:49 Temperature Pulse Rate 116 H Respiratory Rate Blood Pressure Pulse Oximetry 98 96 96 Oxygen Delivery BiPAP CPAP CPAP Fraction of Inspired Oxygen 21 11/23/24 00:00 11/23/24 00:00 11/23/24 00:16 Temperature 98.1 F Pulse Rate 123 H 122 H 122 H Respiratory Rate 20 Blood Pressure 129/87 Pulse Oximetry 98 Oxygen Delivery Fraction of Inspired Oxygen 11/23/24 02:00 11/23/24 02:10 11/23/24 04:00 Temperature Pulse Rate 101 H 118 H Respiratory Rate Blood Pressure Pulse Oximetry 97 97 Oxygen Delivery CPAP BiPAP Fraction of Inspired Oxygen 11/23/24 04:00 11/23/24 04:00 11/23/24 06:00 Temperature 98.5 F Pulse Rate 97 118 H 109 H Respiratory Rate 16 Blood Pressure 122/79 Pulse Oximetry 97 Oxygen Delivery Fraction of Inspired Oxygen 11/23/24 07:51 Temperature 98.2 F Pulse Rate 109 H Respiratory Rate 18 Blood Pressure 134/89 Pulse Oximetry 100 Oxygen Delivery Fraction of Inspired Oxygen Intake/Output Intake/Output: Intake & Output 11/20/24 11/21/24 11/22/24 11/23/24 23:59 23:59 23:59 23:59 Intake Total 850 Output Total 200 Balance 850 -200 Meds/Results Medications: Active Medications Generic Name Dose Route Start Last Admin Trade Name Freq PRN Reason Stop Dose Admin Albuterol 2 puff 11/23/24 01:57 Albuterol Sulfate (*Sp) Aerosol 1 Puff INHALATION QID PRN shortness of breath or wheezing Atorvastatin Calcium 80 mg 11/23/24 09:00 Atorvastatin 40 Mg Tablet PO DAILY ASHLEY Calcitriol 0.25 mcg 11/23/24 09:00 Calcitriol 0.25 Mcg Capsule PO QAM [facility] Calcium Acetate 667 mg 11/23/24 09:00 Calcium Acetate 667 Mg Tablet PO QID [facility] Cyclobenzaprine HCl 5 mg 11/23/24 01:57 Cyclobenzaprine Hcl 5 Mg Tablet PO TID PRN muscle spasm Dextrose 12.5 gm 11/22/24 20:30 Dextrose 50% 25 Gm/50 Ml Syringe IV PUSH PRN PRN Hypoglycemia Protocol Ezetimibe 10 mg 11/23/24 09:00 Ezetimibe 10 Mg Tablet PO DAILY ASHLEY Famotidine 40 mg 11/23/24 21:00 Famotidine 20 Mg Tablet PO HS ASHLEY Gentamicin Sulfate 1 applic 11/23/24 21:00 Gentamicin Sulfate 0.1% Cr 15 Gm Tube TOPICAL HS ASHLEY Guaifenesin/Dextromethorphan 10 ml 11/22/24 23:50 11/23/24 00:16 Guaifenesin/Dextromethorphan 10 Ml Udc PO 10 ml BID PRN Administration Cough Dextrose 1,000 mls @ 100 mls/hr 11/22/24 20:30 Dextrose 5% 1,000 Ml IVPB PRN PRN Hypoglycemia Protocol Ceftriaxone Sodium 1 gm in 50 mls @ 100 mls/hr 11/23/24 20:00 Rocephin 1 Gm/Ns 50 Ml IVPB Q24H ASHLEY Azithromycin 500 mg in 250 mls @ 250 mls/hr 11/23/24 21:00 Zithromax IVPB Q24H [facility] Insulin Aspart 2 - 5 units 11/23/24 08:00 Insulin Aspart (*Bkc) 100 Units/Ml SUB-Q TIDWM [facility] Protocol Insulin Aspart 1 - 2 units 11/22/24 21:00 11/22/24 21:33 Insulin Aspart (*Bkc) 100 Units/Ml SUB-Q 2 units HS [facility] Administration Protocol Levothyroxine Sodium 25 mcg 11/23/24 06:30 11/23/24 05:22 Levothyroxine Sodium 25 Mcg Tablet PO 25 mcg DAILY@0630 [facility] Administration Lidocaine 1 patch 11/23/24 09:00 Lidocaine 5% Patch TRANSDERM DAILY [facility] Linaclotide 72 mcg 11/23/24 01:57 Linaclotide 72 Mcg Capsule PO DAILY PRN Diarrhea Loratadine 10 mg 11/23/24 09:00 Loratadine 10 Mg Tablet PO QAM [facility] Metoprolol Tartrate 50 mg 11/22/24 23:40 11/23/24 00:16 Metoprolol Tartrate 50 Mg Tab PO 50 mg Q12HR [facility] Administration Pantoprazole Sodium 40 mg 11/23/24 09:00 Pantoprazole 40 Mg Tablet PO QAM [facility] Potassium Chloride 20 meq 11/23/24 08:00 Potassium Chloride 20 Meq Er Tablet PO DAILY@0800 [facility] Tamsulosin HCl 0.4 mg 11/23/24 09:00 Tamsulosin Hcl 0.4 Mg Capsule PO BID [facility] Torsemide 100 mg 11/23/24 09:00 Torsemide 20 Mg Tablet PO QAM [facility] Radiology Results: ITS Impressions Chest X-Ray 11/22/24 19:16 IMPRESSION: Large left-sided pleural effusion, increased from 09/08/2024. Chest CT 11/22/24 19:18 IMPRESSION: Interval development of a left lower lobe infiltrate with increased left-sided pleural effusion, as detailed above. Redemonstration of mediastinal lymphadenopathy. Labs Labs: Laboratory Results - last 24 hr 11/22/24 11/22/24 11/22/24 18:22 19:41 20:08 WBC 5.9 RBC 4.11 L Hgb 12.2 L Hct 38.0 L MCV 92.5 MCH 29.7 MCHC 32.1 RDW 13.7 Plt Count 157 MPV 11.3 H Immature Gran % (Auto) 0.3 Neut % (Auto) 71.0 Lymph % (Auto) 14.9 L Ashley % (Auto) 12.7 H Eos % (Auto) 0.8 Baso % (Auto) 0.3 Lymph # (Auto) 0.88 L Ashley # (Auto) 0.8 H Eos # (Auto) 0.1 Baso # (Auto) 0.0 Abs Immat Gran (auto) 0.02 Absolute Neuts (auto) 4.2 Absolute Nucleated RBC 0.000 Nucleated RBC % 0.0 PT 29.3 H INR 2.7 APTT 32.8 Sodium 131 L Potassium 4.1 Chloride 94 L Carbon Dioxide 24 Anion Gap 13 H BUN 55 H Creatinine 7.41 H Estim Creat Clear Calc 13 Estimated GFR 8 L Glucose 272 H POC Capillary Glucose Lactic Acid 1.9 Calcium 8.4 Magnesium 1.7 Total Bilirubin 0.9 AST 32 ALT 34 Alkaline Phosphatase 99 Lactate Dehydrogenase Troponin I 0.247 H* 0.252 H* C-Reactive Protein 0.7 NT-Pro-B Natriuret Pep > 15142 H Total Protein 7.0 7.0 Albumin 3.7 Urine Color Yellow Urine Appearance Cloudy H Urine pH 5.0 Ur Specific [place] 1.029 Urine Protein 1+ H Urine Glucose (UA) 3+ H Urine Ketones Trace H Ur Blood (Man) 3+ H Urine Nitrate Negative Urine Bilirubin Negative Urine Urobilinogen 0.2 Add Ur Microanalysis Reviewed Leukocyte Esterase Rfl 2+ H Urine RBC >100 H Urine WBC 21-50 H Ur Squamous Epith Cells None seen Urine Bacteria None seen Urine Casts 6-10 Urine Opiates Screen Negative Urine Methadone Screen Negative Ur Barbiturates Screen Negative Ur Phencyclidine Scrn Negative Ur Amphetamine Screen Negative U Benzodiazepines Scrn Negative Urine Cocaine Screen Negative U Cannabinoids Screen Negative 11/22/24 11/22/24 11/23/24 21:20 21:53 00:21 WBC RBC Hgb Hct MCV MCH MCHC RDW Plt Count MPV Immature Gran % (Auto) Neut % (Auto) Lymph % (Auto) Ashley % (Auto) Eos % (Auto) Baso % (Auto) Lymph # (Auto) Ashley # (Auto) Eos # (Auto) Baso # (Auto) Abs Immat Gran (auto) Absolute Neuts (auto) Absolute Nucleated RBC Nucleated RBC % PT INR APTT Sodium Potassium Chloride Carbon Dioxide Anion Gap BUN Creatinine Estim Creat Clear Calc Estimated GFR Glucose POC Capillary Glucose 350 H 369 H 372 H Lactic Acid Calcium Magnesium Total Bilirubin AST ALT Alkaline Phosphatase Lactate Dehydrogenase Troponin I C-Reactive Protein NT-Pro-B Natriuret Pep Total Protein Albumin Urine Color Urine Appearance Urine pH Ur Specific [place] Urine Protein Urine Glucose (UA) Urine Ketones Ur Blood (Man) Urine Nitrate Urine Bilirubin Urine Urobilinogen Add Ur Microanalysis Leukocyte Esterase Rfl Urine RBC Urine WBC Ur Squamous Epith Cells Urine Bacteria Urine Casts Urine Opiates Screen Urine Methadone Screen Ur Barbiturates Screen Ur Phencyclidine Scrn Ur Amphetamine Screen U Benzodiazepines Scrn Urine Cocaine Screen U Cannabinoids Screen 11/23/24 11/23/24 11/23/24 00:36 03:58 04:16 WBC 4.1 L RBC 4.00 L Hgb 11.9 L Hct 37.2 L MCV 93.0 MCH 29.8 MCHC 32.0 RDW 13.8 Plt Count 143 L MPV 10.6 H Immature Gran % (Auto) 0.5 Neut % (Auto) 86.7 H Lymph % (Auto) 10.2 L Ashley % (Auto) 2.4 L Eos % (Auto) 0.2 Baso % (Auto) 0.0 L Lymph # (Auto) 0.42 L Ashley # (Auto) 0.1 Eos # (Auto) 0.0 Baso # (Auto) 0.0 Abs Immat Gran (auto) 0.02 Absolute Neuts (auto) 3.6 Absolute Nucleated RBC 0.000 Nucleated RBC % 0.0 PT 30.3 H INR 2.9 APTT Sodium 131 L Potassium 4.5 Chloride 93 L Carbon Dioxide 22 Anion Gap 16 H BUN 58 H Creatinine 7.57 H Estim Creat Clear Calc 13 Estimated GFR 7 L Glucose 369 H POC Capillary Glucose 369 H Lactic Acid Calcium 8.2 L Magnesium 1.6 Total Bilirubin 0.8 AST 33 ALT 43 Alkaline Phosphatase 84 Lactate Dehydrogenase 237 Troponin I 0.220 H* C-Reactive Protein NT-Pro-B Natriuret Pep Total Protein 7.0 Albumin 3.6 Urine Color Urine Appearance Urine pH Ur Specific [place] Urine Protein Urine Glucose (UA) Urine Ketones Ur Blood (Man) Urine Nitrate Urine Bilirubin Urine Urobilinogen Add Ur Microanalysis Leukocyte Esterase Rfl Urine RBC Urine WBC Ur Squamous Epith Cells Urine Bacteria Urine Casts Urine Opiates Screen Urine Methadone Screen Ur Barbiturates Screen Ur Phencyclidine Scrn Ur Amphetamine Screen U Benzodiazepines Scrn Urine Cocaine Screen U Cannabinoids Screen
--- NOTE | 2024-11-23 10:21 | P.PNCROSS_ITS ---
Event Note Event Note Event Note: Patient is on peritoneal dialysis. Tolerating it well. Fluid is clear. No be lly pain. He was seen at 9:45 a.m.
--- NOTE | 2024-11-23 10:21 | PM.CNNEP ---
Assessment and Plan Assessment and plan (1) Acute exacerbation of chronic obstructive pulmonary disease: Code(s): J44.1 - Chronic obstructive pulmonary disease with (acute) exacerbation Status: Acute Assessment and Plan: The patient has shortness of breath. He seemed to improve with his inhaler. He is getting medicines for this. He also had cultures done in is on antibiotics. (2) Pleural effusion: Code(s): J90 - Pleural effusion, not elsewhere classified Status: Acute Assessment and Plan: The patient has volume overload as well. He got a little bit a small but has a left pleural effusion. Will try to take some fluid off to help these issues. His INR is high because of his warfarin so they are planning to hold the warfarin and do a thoracentesis. (3) End-stage renal disease (ESRD): Code(s): N18.6 - End stage renal disease Status: Acute Assessment and Plan: The patient is on peritoneal dialysis. Will continue this. (4) Hyperglycemia due to type 2 diabetes mellitus: Code(s): E11.65 - Type 2 diabetes mellitus with hyperglycemia Status: Acute Assessment and Plan: His sugar is high. He will be on Accu-Cheks and sliding scale insulin per hospitalist (5) Hyperphosphatemia: Code(s): E83.39 - Other disorders of phosphorus metabolism Status: Acute Assessment and Plan: Will check a phosphorus in the morning (6) Hypertension: Code(s): I10 - Essential (primary) hypertension Status: Chronic Assessment and Plan: Blood pressure is under pretty good control (7) Hyperlipidemia: Qualifiers: Hyperlipidemia type: unspecified Qualified Code(s): E78.5 - Hyperlipidemia, unspecified Code(s): E78.5 - Hyperlipidemia, unspecified Status: Chronic Assessment and Plan: The patient takes atorvastatin (8) Obstructive sleep apnea: Code(s): G47.33 - Obstructive sleep apnea (adult) (pediatric) Status: Chronic Assessment and Plan: The patient uses his CPAP inconsistently (9) Congestive heart failure: Qualifiers: Heart failure chronicity: acute on chronic Heart failure type: unspecified Qualified Code(s): I50.9 - Heart failure, unspecified Code(s): I50.9 - Heart failure, unspecified Status: Acute Assessment and Plan: Will try to take some fluid off. He just had an echocardiogram 4 months ago History of Present Illness Reason for Consult Consult date: 11/23/24 Chief Complaint Chief complaint: CHF exacerbation, COPD exacerbation, pneumonia History of Present Illness Narrative: Juvenal is a very pleasant 54-year-old gentleman who has multiple medical problems including end-stage renal disease on peritoneal dialysis every night for the last 4 years. He has never been on hemodialysis or had a transplant. The patient also has anemia, renal osteodystrophy, hypertension, diabetes, hyperlipidemia, coronary artery disease status post stents and a year ago had a bypass and aortic valve replacement, patient also has congestive heart failure, has paroxysmal atrial fibrillation is on warfarin for this; he has history of seizures, gout, DVT, GERD, sleep apnea and uses CPAP mask inconsistently, anxiety, and arthritis. The patient says that he started feeling under the weather about 5 days ago. He went to see his primary care physician who gave him some antibiotics, Medrol Dosepak, and some inhalers. The doctor told him that if he does not feel better in for 5 days that he should come to the hospital. He did really feeling any better and then yesterday he started feeling more short of breath and was even more so last night so came to the ER. In the ER, the patient was noted be somewhat short of breath. He was not hypoxic. He had an inhaler. Chest x-ray did show some fluid and a left pleural effusion. CT chest showed a left pleural effusion and chronic stable mediastinal lymphadenopathy. Labs were checked. CBC was unremarkable. Chemistries were unremarkable. Troponins were slightly high but stable. Blood and urine cultures were checked and he was placed on antibiotics and admitted to the floor. Today patient is still not on oxygen. He has some breathlessness with discussion but is not short of breath just lying in semi-Lara's position. He has got a little bit of a cough. Overall feels about the same as he did yesterday. The patient is on dialysis and fluid is clear. Review of Systems Constitutional: Constitutional: Reports no additional constitutional complaints Eyes: Eyes: Reports no additional eye complaints ENT: Reports system reviewed and no additional complaints, except as documented Cardiovascular: Cardiovascular: Reports no additional cardiovascular complaints Respiratory: Respiratory: Reports no additional respiratory complaints Gastrointestinal: Gastrointestinal: Reports no additional gastrointestinal complaints Genitourinary: Genitourinary: Reports no additional male genitourinary complaints Musculoskeletal: Musculoskeletal: Reports no additional musculoskeletal complaints Integumentary/Breasts: Skin/Breast: Reports system reviewed and no additional complaints, except as docu Neurologic: Reports system reviewed and no additional complaints, except as documented Psychiatric: Psychiatric: Reports no additional psychiatric complaints Endocrine: Endocrine: Reports no additional endocrine complaints [facility] Past Medical History Medical History Chronic back pain Hematuria Right hand dominant Insulin dependent diabetes mellitus Chronic anticoagulation Paroxysmal atrial fibrillation Renal osteodystrophy Seizure X1 with etiology unknown End-stage renal disease on peritoneal dialysis Essential hypertension Gout Deep venous thrombosis Chronic right popliteal DVT. Coronary artery disease History of several stents including complex procedure at [facility]/ stenting of a heavily calcified CX on OM using shockwave treatment. Gastroesophageal reflux disease Congestive heart failure Echocardiogram May 2017 EF of 50% with hypokinetic apical, inferior and basal inferior lateral segment, mild enlargement of left atrium. Anemia in chronic kidney disease Type 1 diabetes mellitus Onset around age 13. Diabetic retinopathy Diabetic peripheral neuropathy Obstructive sleep apnea With inconsistent CPAP use. Secondary hyperparathyroidism of renal origin Anxiety Arthritis Hyperlipidemia Surgical History Surgical History S/P triple vessel bypass Sep 2023; [facility] History of coronary angioplasty with insertion of stent Drug-eluting stents for high-grade OM 99% occlusion 05/2022. History of hernia repair Peritoneal dialysis catheter in place History of cataract extraction With lens implant History of open reduction and internal fixation (ORIF) procedure (1982) Left lower extremity fracture. And the right hip pinning when he was in the 8th grade History of arthroscopy of left knee History of anterior cruciate ligament surgery (2000) Left knee History of bilateral carpal tunnel release Right 05/03/2018. Left 06/02/2018. History of appendectomy (2006) History of cardiac catheterization 01/21/2021 catheterization at [facility], Dr. Hoover done: Little change from prior catheterization. Patent stents in the RCA and PDA. Previously jailed posterolateral is occluded and development of a 50% stenosis of a branch of om 1. Normal LV function. :August 2019 demonstrated patent stents with 40% stenosis of 1 vessel with no stents or angioplasty performed per patient report. :November 2018 at [facility] - stent x3. :March 2017 demonstrating mild diffuse coronary disease 80% lesion small sub branch of obtuse marginal 1 and 90% stenosis distal RCA into the origin of the PDA with PTCA and stent to the RPDA/distal RCA performed by Dr. Petit. Family History Family History Father , in his late 60s Acute myocardial infarction Premature coronary artery disease; <65yo CHF (congestive heart failure) Dementia Hypertension S/P triple vessel bypass 1980s Mother Lung cancer Hypertension Daughter Celiac disease Social History Social History Social History: Surrogate medical decision maker: Hodan Pilo (daughter) or Lorne Daigle (brother). Code status: Full code. Smoking status: Never smoker Second hand tobacco smoke exposure: No Alcohol intake: never Substance use: never Substance use type: does not use Do You Feel Safe in your Home?: Yes Lack of Transportation: No Lack of Food: Never True Current Housing: I Have Housing Concerned About Future Housing: No Difficulty Paying Gas/Electric Bills: No Difficulty Paying for Meds: No Currently Unemployed: No Education: High School Diploma/GED Difficulty w/ Childcare or Family Care: No Living arrangements: alone Additional living arrangements comments: He is single and has 3 children. 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 Spiritual care concerns: No Agree to blood products: Yes Meds Home Medications and Allergies Home Medications ?Medication ?Instructions ?Recorded ?Confirmed ?Type calcitriol 0.25 mcg capsule 0.25 mcg PO QAM 06/04/19 11/22/24 History ergocalciferol (vitamin D2) 1,250 50,000 unit PO WEEKLY 06/04/19 11/22/24 History mcg (50,000 unit) capsule (Vitamin D2) nitroglycerin 0.4 mg sublingual 0.4 mg sublingual Q5-15M PRN Chest 06/04/19 11/22/24 History tablet Pain ezetimibe 10 mg tablet (Zetia) 10 mg PO DAILY 09/09/19 11/22/24 History cetirizine 10 mg tablet (All Day 10 mg PO DAILY 12/26/19 11/22/24 History Allergy (cetirizine)) atorvastatin 80 mg tablet 80 mg PO DAILY 11/26/20 11/22/24 History albuterol sulfate 90 mcg/actuation 1 inh inhalation QID PRN shortness 01/12/23 11/22/24 Rx aerosol inhaler (ProAir HFA) of breath or wheezing #8.5 grams potassium chloride 20 mEq 20 meq PO DAILY Cramps 05/20/23 11/22/24 History tablet,extended release febuxostat 40 mg tablet 40 mg PO QPM 07/25/23 11/22/24 History linaclotide 72 mcg capsule 72 mcg PO DAILY PRN Diarrhea 07/25/23 11/22/24 History (Linzess) icosapent ethyl 1 gram capsule 1 g PO QID 02/16/24 11/22/24 History (Vascepa) torsemide 100 mg tablet 100 mg PO DAILY 02/16/24 11/22/24 History insulin pump cart,automated,BT #45 ea 05/16/24 11/22/24 Rx (Omnipod 5 G6 Pods (Gen 5) subcutaneous cartridge) omeprazole 20 mg capsule,delayed 20 mg PO DAILY 06/06/24 11/22/24 History release amlodipine 10 mg tablet 10 mg PO HS 07/30/24 11/22/24 History calcium acetate(phosphat bind) 667 667 mg PO QID 07/30/24 11/22/24 History mg capsule glucagon 1 mg/0.2 mL subcutaneous See Rx Instructions .Route 07/30/24 11/22/24 History auto-injector (Gvoke HypoPen .COMPLEX PRN Hypoglycemia 2-Pack) cyclobenzaprine 10 mg tablet 5 - 10 mg (0.5 - 1 x 10 mg) PO TID 08/11/24 11/22/24 Rx PRN muscle spasm #10 tabs famotidine 40 mg tablet 40 mg PO HS 08/17/24 11/22/24 History lidocaine 5 % topical patch 1 patch transdermal Q24H 08/17/24 11/22/24 History aspirin 81 mg capsule 81 mg PO DAILY 08/31/24 11/22/24 History colchicine 0.6 mg capsule 0.6 mg PO 3XW 08/31/24 11/22/24 History gentamicin 0.1 % topical cream 1 applic topical HS 08/31/24 11/22/24 History tamsulosin 0.4 mg capsule 0.4 mg PO BID 08/31/24 11/22/24 History pen needle, diabetic 32 gauge x #400 ea 09/11/24 11/22/24 Rx 5/32 (BD Lucrecia 2nd Gen Pen Needle) blood sugar diagnostic (OneTouch #300 ea 09/16/24 11/22/24 Rx Verio test strips) blood-glucose transmitter (Dexcom #1 ea 09/16/24 11/22/24 Rx G6 Transmitter device) insulin aspart U-100 100 unit/mL 15 unit subcut TIDWMEAL 09/23/24 11/22/24 History (3 mL) subcutaneous pen (Novolog FlexPen U-100 Insulin aspart) metoprolol tartrate 50 mg tablet 50 mg PO Q12H 09/23/24 11/22/24 History levothyroxine 25 mcg tablet 25 mcg PO DAILY #90 tabs 11/04/24 11/22/24 Rx Dexcom G6 Sensor (blood-glucose #9 ea 11/06/24 11/22/24 Rx sensor) insulin glargine U-300 conc 300 50 unit (0.1667 mL) subcut DAILY 11/18/24 11/22/24 Rx unit/mL (1.5 mL) subcutaneous pen 90 days #18 mL (Toujeo SoloStar U-300 Insulin) insulin NPH isoph U-100 human 100 40 unit subcut DAILY 11/22/24 11/22/24 History unit/mL (3 mL) subcutaneous pen (Humulin N NPH U-100 Insulin KwikPen) warfarin 5 mg tablet 3 mg PO DAILY 11/22/24 11/22/24 History Allergies Allergy/AdvReac Type Severity Reaction Status Date / Time allopurinol Allergy Severe Other Verified 11/22/24 17:56 iodine Allergy Severe Rash Verified 11/22/24 17:56 iohexol (From CONTRAST - CT, Allergy Severe Difficulty Verified 11/22/24 17:56 XRAY) Breathing ticagrelor Allergy Intermediate Rash Verified 11/22/24 17:56 Vital Signs Vital Signs - 24 hr 11/22/24 18:08 11/22/24 18:30 11/22/24 18:56 Temperature 97.2 F L Pulse Rate 98 118 H Respiratory Rate 17 16 Blood Pressure 136/88 Pulse Oximetry 97 94 Oxygen Delivery Room Air Fraction of Inspired Oxygen 11/22/24 19:25 11/22/24 19:26 11/22/24 20:14 Temperature Pulse Rate 103 H 114 H 115 H Respiratory Rate 17 16 Blood Pressure 133/85 Pulse Oximetry 100 Oxygen Delivery Fraction of Inspired Oxygen 11/22/24 22:00 11/22/24 22:06 11/22/24 22:15 Temperature 97.7 F Pulse Rate 122 H 122 H 123 H Respiratory Rate 98 H 21 H 18 Blood Pressure 123/86 123/86 119/75 Pulse Oximetry 21 L 98 95 Oxygen Delivery Fraction of Inspired Oxygen 11/22/24 23:30 11/22/24 23:49 11/22/24 23:49 Temperature Pulse Rate 116 H Respiratory Rate Blood Pressure Pulse Oximetry 98 96 96 Oxygen Delivery BiPAP CPAP CPAP Fraction of Inspired Oxygen 21 11/23/24 00:00 11/23/24 00:00 11/23/24 00:16 Temperature 98.1 F Pulse Rate 123 H 122 H 122 H Respiratory Rate 20 Blood Pressure 129/87 Pulse Oximetry 98 Oxygen Delivery Fraction of Inspired Oxygen 11/23/24 02:00 11/23/24 02:10 11/23/24 04:00 Temperature Pulse Rate 101 H 118 H Respiratory Rate Blood Pressure Pulse Oximetry 97 97 Oxygen Delivery CPAP BiPAP Fraction of Inspired Oxygen 11/23/24 04:00 11/23/24 04:00 11/23/24 06:00 Temperature 98.5 F Pulse Rate 97 118 H 109 H Respiratory Rate 16 Blood Pressure 122/79 Pulse Oximetry 97 Oxygen Delivery Fraction of Inspired Oxygen 11/23/24 07:51 Temperature 98.2 F Pulse Rate 109 H Respiratory Rate 18 Blood Pressure 134/89 Pulse Oximetry 100 Oxygen Delivery Fraction of Inspired Oxygen Exam Narrative: Exam Narrative: Well developed well-nourished male in no acute distress Skin is warm and dry without rash Head normocephalic atraumatic Eyes normal sclerae and conjunctivae Mouth normal lips teeth and gums Neck no nodes no thyromegaly no carotid bruits Axillae no nodes Back no CVA tenderness Lungs symmetric and clear to auscultation and percussion Heart regular rate and rhythm with a few early beats without rub or gallop Abdomen bowel sounds positive soft nontender, no HSM, masses, or bruits. Extremities no cyanosis, clubbing, and 1+ bilateral edema Pulses 2+ equal in radial arteries Psychological not anxious or depressed Neuro alert and oriented x3 motor 5/5 cranial nerves 2-12 intact reflexes 2+ and equal in the biceps and patellar tendons cerebellar normal rapid alternating movements Results Lab Results 11/23/24 04:16 11/23/24 04:16 Lab results: Most recent lab results Calcium 8.2 mg/dL (8.4-10.2) L 11/23/24 04:16 Magnesium 1.6 mg/dL (1.6-2.3) 11/23/24 04:16
--- NOTE | 2024-11-23 10:21 | PM.EVENT ---
Event Note Event Note Event Note: Patient is on peritoneal dialysis. Tolerating it well. Fluid is clear. No belly pain. He was seen at 9:45 a.m.
[2024-11-23 11:09] LABS: Glucose Point of Care 387 mg/dl (65-105)
[2024-11-23] MEDS: TORSEMIDE 20 MG TABLET 100 MG PO (11:17)
[2024-11-23] MEDS: POTASSIUM CHLORIDE 20 MEQ ER TABLET PO (11:17)
[2024-11-23] MEDS: ATORVASTATIN 40 MG TABLET 80 MG PO (11:18)
[2024-11-23] MEDS: PANTOPRAZOLE 40 MG TABLET PO (11:18)
[2024-11-23] MEDS: TAMSULOSIN HCL 0.4 MG CAPSULE PO (11:18)
[2024-11-23] MEDS: calcitrioL 0.25 MCG CAPSULE PO (11:18)
[2024-11-23] MEDS: EZETIMIBE 10 MG TABLET PO (11:19)
[2024-11-23] MEDS: CALCIUM ACETATE 667 MG TABLET PO ×3 (11:19→20:47)
[2024-11-23] MEDS: LORATADINE 10 MG TABLET PO (11:19)
[2024-11-23] MEDS: OMEGA 3 POLYUNSAT FATTY ACIDS 1 GM CAP PO ×3 (11:23→20:47)
[2024-11-23] MEDS: ASPIRIN 81 MG ENTERIC TABLET PO (11:23)
[2024-11-23] MEDS: INSULIN ASPART (*BKC) 100 UNITS/ML 12 UNITS SUB-Q (11:24)
[2024-11-23] MEDS: INSULIN GLARGINE (*BKC) 100 UNITS/ML 40 UNITS SUB-Q (11:26)
[2024-11-23] MEDS: CYCLOBENZAPRINE HCL 5 MG TABLET PO (16:25)
[2024-11-23 16:38] LABS: Glucose Point of Care > 500 mg/dl (65-105)
[2024-11-23] MEDS: INSULIN ASPART (*BKC) 100 UNITS/ML 20 UNITS SUB-Q (16:44)
--- NOTE | 2024-11-23 17:29 | PC.NURSE ---
Pt complains of lower back pain rated 6/10. Flexeril given with no relief. Pain now radiating to right lower abdomen. Describes as cramping, sharp, and shooting. Denies nausea. Had formed BM this afternoon, medium sized. Dr. Lockwood made aware. New orders noted.
[2024-11-23] MEDS: MORPHINE SULFATE (*CRX) 2 MG/ML INJ IV PUSH ×2 (17:45→21:46)
[2024-11-23 20:13] LABS: Glucose Point of Care 314 mg/dl (65-105)
[2024-11-23] MEDS: HYDROmorphone HCL INJ (*CRX) 1 MG/ML SYR 0.5 MG IV PUSH (20:42)
[2024-11-23] MEDS: amLODIPine BESYLATE 10 MG TABLET PO (20:46)
[2024-11-23] MEDS: FAMOTIDINE 20 MG TABLET 40 MG PO (20:47)
[2024-11-23] MEDS: AZITHROMYCIN 500 MG/NS 250 ML 500 MG/250 ML BAG 250 MG IVPB (20:52)
[2024-11-23 22:14] LABS: Add Urine Microscopic? YES; Appearance Urine Cloudy (Clear); Bacteria Urine None Seen /hpf; Bilirubin Urine Negative (Negative); Blood Urine 2+ (Negative); Budding Yeast Urine Present /hpf; Color Urine Yellow (Yellow); Glucose Urine UA 3+ mg/dL (Negative); Ketones Urine Trace mg/dL (Negative); Leukocyte Esterase Ur 1+ LEU/UL (Negative); Need Manual Microscopic Reviewed; Nitrate Urine Negative (Negative); Protein Urine 1+ mg/dL (Negative); Specific Grav Ur 1.025 (1.001-1.035); Squamous Epithelial Cell Urine None Seen /hpf (Few); Urobilinogen Urine 0.2 mg/dL (<2.0); WBC Urine 21-50 /hpf (0-3)
[2024-11-24] VITALS (20 sets, daily range): BP systolic 109–133; BP diastolic 67–85; PULSE 79–98; RESP 14–20; TEMP 36.4–37; O2SAT 96–100
[2024-11-24] LABS: Glucose Point of Care 184 mg/dl (65-105)
[2024-11-24] MEDS: MORPHINE SULFATE (*CRX) 2 MG/ML INJ IV PUSH ×2 (03:25→08:09)
[2024-11-24 04:55] LABS: Hematocrit 37.6 % (42.0-52.0); Mean Corpuscular HGB Conc 31.9 g/dl (32-36); Mean Corpuscular Hemoglobin 29.6 pg (26-34); Mean Corpuscular Volume 92.6 fl (80-100); Mean Platelet Volume 10.9 fl (7.4-10.4); Platelet Count Result 170 k/mm3 (150-375); Red Blood Count 4.06 M/mm3 (4.6-6.20); Red Cell Distribution Width 13.9 % (11.5-14.5); White Blood Count 7.9 K/mm3 (4.5-10.0)
[2024-11-24 05:08] LABS: Alanine Aminotransferase 31 U/L (6-50); Albumin Level 3.6 g/dL (3.5-5.1); Alkaline Phosphatase 74 U/L (38-126); Anion Gap 16 mmol/L (4-12); Aspartate Amino Transferase 22 U/L (17-59); Bilirubin,Total 0.7 mg/dL (0.2-1.3); Blood Urea Nitrogen 67 mg/dL (9-20); Calcium 8.6 mg/dL (8.4-10.2); Carbon Dioxide 23 mmol/L (22-30); Chloride 92 mmol/L (98-107); Estimated CRCL calculation 12 ml/min; Estimated Glomerular Filt Rate 7; Glucose 156 mg/dL (65-110); Magnesium 1.7 mg/dL (1.6-2.3); Phosphorus 6.6 mg/dL (2.5-4.5); Potassium 4.3 mmol/L (3.4-5.0); Sodium 131 mmol/L (137-145)
[2024-11-24 05:11] LABS: INR 2.7; Prothrombin Time 28.6 Seconds (11.1-14.7)
[2024-11-24] MEDS: LEVOTHYROXINE SODIUM 25 MCG TABLET PO (06:34)
[2024-11-24 08:00] LABS: Glucose Point of Care 145 mg/dl (65-105)
[2024-11-24] MEDS: LIDOCAINE 5% PATCH 1 PATCH TRANSDERM (08:15)
[2024-11-24] MEDS: ATORVASTATIN 40 MG TABLET 80 MG PO (08:18)
[2024-11-24] MEDS: ASPIRIN 81 MG ENTERIC TABLET PO (08:19)
[2024-11-24] MEDS: POTASSIUM CHLORIDE 20 MEQ ER TABLET PO (08:19)
[2024-11-24] MEDS: METOPROLOL TARTRATE 50 MG TAB PO ×2 (08:20→20:18)
[2024-11-24] MEDS: calcitrioL 0.25 MCG CAPSULE PO (08:20)
[2024-11-24] MEDS: CALCIUM ACETATE 667 MG TABLET PO ×4 (08:21→20:18)
[2024-11-24] MEDS: LORATADINE 10 MG TABLET PO (08:21)
[2024-11-24] MEDS: EZETIMIBE 10 MG TABLET PO (08:22)
[2024-11-24] MEDS: PANTOPRAZOLE 40 MG TABLET PO (08:31)
[2024-11-24] MEDS: TAMSULOSIN HCL 0.4 MG CAPSULE PO ×2 (08:31→16:48)
[2024-11-24] MEDS: TORSEMIDE 20 MG TABLET 100 MG PO (08:31)
[2024-11-24] MEDS: OMEGA 3 POLYUNSAT FATTY ACIDS 1 GM CAP PO ×4 (08:32→20:18)
--- NOTE | 2024-11-24 11:41 | PM.PNNEP ---
Progress Note: A&P Assessment and Plan (1) Acute exacerbation of chronic obstructive pulmonary disease: Code(s): J44.1 - Chronic obstructive pulmonary disease with (acute) exacerbation Status: Acute Assessment and Plan: The patient Had shortness of breath on admission. This is better. He had a lot of fluid off on yesterday's dialysis. He also had cultures done in is on antibiotics. Cultures unremarkable so far. (2) Pleural effusion: Code(s): J90 - Pleural effusion, not elsewhere classified Status: Acute Assessment and Plan: The patient has volume overload as well. He got a little bit a small but has a left pleural effusion. Will try to take some fluid off to help these issues. His INR is high because of his warfarin so they are planning to hold the warfarin and do a thoracentesis. They are going to try doing a thoracentesis tomorrow (3) End-stage renal disease (ESRD): Code(s): N18.6 - End stage renal disease Status: Acute Assessment and Plan: The patient is on peritoneal dialysis. Will continue this. he missed last night because of his severe flank pain and the workup there of. However today he is on dialysis to make up for the missed missed night on Monday. (4) Hyperglycemia due to type 2 diabetes mellitus: Code(s): E11.65 - Type 2 diabetes mellitus with hyperglycemia Status: Acute Assessment and Plan: His sugar is high. He will be on Accu-Cheks and sliding scale insulin per hospitalist (5) Hyperphosphatemia: Code(s): E83.39 - Other disorders of phosphorus metabolism Status: Acute Assessment and Plan: Phosphorus level is a little bit on the high side. Will add sevelamer (6) Hypertension: Code(s): I10 - Essential (primary) hypertension Status: Chronic Assessment and Plan: Blood pressure is under pretty good control (7) Hyperlipidemia: Qualifiers: Hyperlipidemia type: unspecified Qualified Code(s): E78.5 - Hyperlipidemia, unspecified Code(s): E78.5 - Hyperlipidemia, unspecified Status: Chronic Assessment and Plan: The patient takes atorvastatin (8) Obstructive sleep apnea: Code(s): G47.33 - Obstructive sleep apnea (adult) (pediatric) Status: Chronic Assessment and Plan: The patient uses his CPAP inconsistently (9) Congestive heart failure: Qualifiers: Heart failure chronicity: acute on chronic Heart failure type: unspecified Qualified Code(s): I50.9 - Heart failure, unspecified Code(s): I50.9 - Heart failure, unspecified Status: Acute Assessment and Plan: Will try to take some fluid off. He just had an echocardiogram 4 months ago Subjective Date/time seen: 11/24/24 11:41 Interval history: patient had right flank pain which radiated eventually down into the groin and then into his right testicle. He has had 2 kidney stones recently, 1 last year, and 1 in August. He did not collect stones either time. He is not sure where he was when he passed the stones. Last night an evaluation of the pain he had a CT scan which was unremarkable except for some inflammation around an umbilical hernia and some along the right ureter. There is also mild hydro as well. The patient feels better today. Review of Systems Cardiovascular: Cardiovascular: Reports no additional cardiovascular complaints Respiratory: Respiratory: Reports no additional respiratory complaints Gastrointestinal: Gastrointestinal: Reports no additional gastrointestinal complaints Genitourinary: Genitourinary: Reports no additional male genitourinary complaints Exam Narrative: WDWN in NAD skin no rash head ncat lungs clear cor reg no rub abd BS+ nontender and soft ext no edema. Objective Data Vital Signs Vital Signs: Vital Signs - 24 hr 11/23/24 11:42 11/23/24 12:00 11/23/24 12:00 Temperature 98.8 F Pulse Rate 99 104 H Respiratory Rate 14 Blood Pressure 130/71 Pulse Oximetry 97 91 Oxygen Delivery Room Air 11/23/24 14:00 11/23/24 16:00 11/23/24 16:00 Temperature 98.7 F Pulse Rate 104 H 89 Respiratory Rate 18 Blood Pressure 138/74 Pulse Oximetry 100 100 Oxygen Delivery Room Air 11/23/24 16:00 11/23/24 18:00 11/23/24 20:00 Temperature 98.1 F Pulse Rate 102 H 109 H 111 H Respiratory Rate 18 Blood Pressure 126/76 Pulse Oximetry 100 Oxygen Delivery 11/23/24 20:00 11/23/24 20:10 11/23/24 20:35 Temperature Pulse Rate 111 H 109 H Respiratory Rate Blood Pressure Pulse Oximetry 98 Oxygen Delivery Room Air 11/23/24 20:46 11/23/24 22:00 11/23/24 23:00 Temperature Pulse Rate 109 H 79 Respiratory Rate Blood Pressure Pulse Oximetry 96 Oxygen Delivery Room Air 11/23/24 23:00 11/24/24 00:00 11/24/24 00:00 Temperature 97.6 F Pulse Rate 89 92 98 Respiratory Rate 18 Blood Pressure 119/78 Pulse Oximetry 96 100 Oxygen Delivery CPAP 11/24/24 00:17 11/24/24 02:00 11/24/24 04:00 Temperature Pulse Rate 89 79 Respiratory Rate Blood Pressure Pulse Oximetry 97 Oxygen Delivery Room Air 11/24/24 04:00 11/24/24 04:40 11/24/24 06:00 Temperature 97.6 F Pulse Rate 89 81 Respiratory Rate 18 Blood Pressure 109/76 Pulse Oximetry 98 96 Oxygen Delivery Room Air 11/24/24 07:29 11/24/24 08:00 11/24/24 08:20 Temperature 97.6 F Pulse Rate 80 80 80 Respiratory Rate 14 Blood Pressure 122/75 Pulse Oximetry 98 Oxygen Delivery 11/24/24 10:00 Temperature Pulse Rate 79 Respiratory Rate Blood Pressure Pulse Oximetry Oxygen Delivery Intake/Output Intake/Output: Intake & Output 11/21/24 11/22/24 11/23/24 11/24/24 23:59 23:59 23:59 23:59 Intake Total 850 6341 440 Output Total 375 250 Balance 850 5974 190 Meds/Results Medications: Active Medications Generic Name Dose Route Start Last Admin Trade Name Freq PRN Reason Stop Dose Admin Albuterol 2 puff 11/23/24 01:57 Albuterol Sulfate (*Sp) Aerosol 1 Puff INHALATION QID PRN shortness of breath or wheezing Amlodipine Besylate 10 mg 11/23/24 21:00 11/23/24 20:46 Amlodipine Besylate 10 Mg Tablet PO 10 mg HS ASHLEY Administration Aspirin 81 mg 11/23/24 09:00 11/24/24 08:19 Aspirin 81 Mg Enteric Tablet PO 81 mg QAM ASHLEY Administration Atorvastatin Calcium 80 mg 11/23/24 09:00 11/24/24 08:18 Atorvastatin 40 Mg Tablet PO 80 mg DAILY ASHLEY Administration Calcitriol 0.25 mcg 11/23/24 09:00 11/24/24 08:20 Calcitriol 0.25 Mcg Capsule PO 0.25 mcg QAM ASHLEY Administration Calcium Acetate 667 mg 11/23/24 09:00 11/24/24 08:21 Calcium Acetate 667 Mg Tablet PO 667 mg QID ASHLEY Administration Colchicine 0.6 mg 11/25/24 09:00 Colchicine 0.6 Mg Tablet PO MoWeFr@0900 ASHLEY Cyclobenzaprine HCl 5 mg 11/23/24 01:57 11/23/24 16:25 Cyclobenzaprine Hcl 5 Mg Tablet PO 5 mg TID PRN Administration muscle spasm Dextrose 12.5 gm 11/22/24 20:30 Dextrose 50% 25 Gm/50 Ml Syringe IV PUSH PRN PRN Hypoglycemia Protocol Ezetimibe 10 mg 11/23/24 09:00 11/24/24 08:22 Ezetimibe 10 Mg Tablet PO 10 mg DAILY ASHLEY Administration Ergocalciferol 50,000 units 11/25/24 09:00 Ergocalciferol 50,000 Units Capsule PO Mo@0900 [facility] Famotidine 40 mg 11/23/24 21:00 11/23/24 20:47 Famotidine 20 Mg Tablet PO 40 mg HS ASHLEY Administration Fish Oil 1 gm 11/23/24 09:00 11/24/24 08:32 [place] 3 Polyunsat Fatty Acids 1 Gm Cap PO 1 gm QID ASHLEY Administration Gentamicin Sulfate 1 applic 11/23/24 21:00 11/24/24 00:31 Gentamicin Sulfate 0.1% Cr 15 Gm Tube TOPICAL Not Given HS [facility] Guaifenesin/Dextromethorphan 10 ml 11/22/24 23:50 11/23/24 00:16 Guaifenesin/Dextromethorphan 10 Ml Udc PO 10 ml BID PRN Administration Cough Dextrose 1,000 mls @ 100 mls/hr 11/22/24 20:30 Dextrose 5% 1,000 Ml IVPB PRN PRN Hypoglycemia Protocol Ceftriaxone Sodium 1 gm in 50 mls @ 100 mls/hr 11/23/24 20:00 11/23/24 21:20 Rocephin 1 Gm/Ns 50 Ml IVPB Infused Q24H ASHLEY Infusion Azithromycin 500 mg in 250 mls @ 250 mls/hr 11/23/24 21:00 11/23/24 21:50 Zithromax IVPB Infused Q24H ASHLEY Infusion Insulin Aspart 2 - 5 units 11/23/24 08:00 11/24/24 08:09 Insulin Aspart (*Bkc) 100 Units/Ml SUB-Q Not Given TIDWM [facility] Protocol Insulin Aspart 1 - 2 units 11/22/24 21:00 11/23/24 23:51 Insulin Aspart (*Bkc) 100 Units/Ml SUB-Q Not Given HS [facility] Protocol Insulin Aspart 12 units 11/23/24 11:30 11/24/24 08:08 Insulin Aspart (*Bkc) 100 Units/Ml SUB-Q Not Given TIDAC [facility] Insulin Glargine 40 units 11/23/24 11:15 11/24/24 08:09 Insulin Glargine (*Bkc) 100 Units/Ml SUB-Q Not Given DAILY@0900 [facility] Insulin Human NPH 30 units 11/23/24 21:00 11/23/24 23:51 Insulin Human Nph (*Bkc) 100 Units/Ml SUB-Q Not Given HS [facility] Levothyroxine Sodium 25 mcg 11/23/24 06:30 11/24/24 06:34 Levothyroxine Sodium 25 Mcg Tablet PO 25 mcg DAILY@0630 [facility] Administration Lidocaine 1 patch 11/23/24 09:00 11/24/24 08:15 Lidocaine 5% Patch TRANSDERM 1 patch DAILY [facility] Administration Linaclotide 72 mcg 11/23/24 01:57 Linaclotide 72 Mcg Capsule PO DAILY PRN Diarrhea Loratadine 10 mg 11/23/24 09:00 11/24/24 08:21 Loratadine 10 Mg Tablet PO 10 mg QAM [facility] Administration Metoprolol Tartrate 50 mg 11/22/24 23:40 11/24/24 08:20 Metoprolol Tartrate 50 Mg Tab PO 50 mg Q12HR [facility] Administration Morphine Sulfate 2 mg 11/23/24 17:27 11/24/24 08:09 Morphine Sulfate (*Crx) 2 Mg/Ml Inj IV PUSH 2 mg Q4H PRN Administration Pain Rated 7-10 Nitroglycerin 0.4 mg 11/23/24 09:23 Nitroglycerin Sl 0.4 Mg Tablet SUBLINGUAL Q5MIN PRN Chest Pain Pantoprazole Sodium 40 mg 11/23/24 09:00 11/24/24 08:31 Pantoprazole 40 Mg Tablet PO 40 mg QAM [facility] Administration Potassium Chloride 20 meq 11/23/24 08:00 11/24/24 08:19 Potassium Chloride 20 Meq Er Tablet PO 20 meq DAILY@0800 [facility] Administration Tamsulosin HCl 0.4 mg 11/23/24 09:00 11/24/24 08:31 Tamsulosin Hcl 0.4 Mg Capsule PO 0.4 mg BID ASHLEY Administration Torsemide 100 mg 11/23/24 09:00 11/24/24 08:31 Torsemide 20 Mg Tablet PO 100 mg QAM ASHLEY Administration Warfarin Sodium 3 mg 11/23/24 17:00 Warfarin (*Pbkc) 3 Mg Tablet PO DAILY@1700 [facility] Radiology Results: ITS Impressions Chest X-Ray 11/22/24 19:16 IMPRESSION: Large left-sided pleural effusion, increased from 09/08/2024. Chest CT 11/22/24 19:18 IMPRESSION: Interval development of a left lower lobe infiltrate with increased left-sided pleural effusion, as detailed above. Redemonstration of mediastinal lymphadenopathy. Abdomen/Pelvis CT 11/23/24 20:48 IMPRESSION: Segmental left lower lobe atelectasis/consolidation. Large left pleural effusion. Cholelithiasis, without CT evidence of cholecystitis. Mild right hydronephrosis with ureteral stranding and inflammatory change of the urinary bladder, findings may represent cystitis with ascending infection. Inflamed fat-containing umbilical hernia. Moderate body wall edema. Labs Labs: Laboratory Results - last 24 hr 11/23/24 11/23/24 11/23/24 16:30 20:02 21:53 WBC RBC Hgb Hct MCV MCH MCHC RDW Plt Count MPV PT INR Sodium Potassium Chloride Carbon Dioxide Anion Gap BUN Creatinine Estim Creat Clear Calc Estimated GFR Glucose POC Capillary Glucose > 500 H* 314 H Calcium Phosphorus Magnesium Total Bilirubin AST ALT Alkaline Phosphatase Total Protein Albumin Urine Color Yellow Urine Appearance Cloudy H Urine pH 5.0 Ur Specific [place] 1.025 Urine Protein 1+ H Urine Glucose (UA) 3+ H Urine Ketones Trace H Ur Blood (Man) 2+ H Urine Nitrate Negative Urine Bilirubin Negative Urine Urobilinogen 0.2 Add Ur Microanalysis Reviewed Leukocyte Esterase Rfl 1+ H Urine RBC 6-10 H Urine WBC 21-50 H Ur Squamous Epith Cells None seen Urine Bacteria None seen Urine Casts 6-10 Urine Yeast (Budding) Present H 11/23/24 11/24/24 11/24/24 23:51 04:35 07:57 WBC 7.9 RBC 4.06 L Hgb 12.0 L Hct 37.6 L MCV 92.6 MCH 29.6 MCHC 31.9 L RDW 13.9 Plt Count 170 MPV 10.9 H PT 28.6 H INR 2.7 Sodium 131 L Potassium 4.3 Chloride 92 L Carbon Dioxide 23 Anion Gap 16 H BUN 67 H Creatinine 8.01 H Estim Creat Clear Calc 12 Estimated GFR 7 L Glucose 156 H POC Capillary Glucose 184 H 145 H Calcium 8.6 Phosphorus 6.6 H Magnesium 1.7 Total Bilirubin 0.7 AST 22 ALT 31 Alkaline Phosphatase 74 Total Protein 6.0 L Albumin 3.6 Urine Color Urine Appearance Urine pH Ur Specific [place] Urine Protein Urine Glucose (UA) Urine Ketones Ur Blood (Man) Urine Nitrate Urine Bilirubin Urine Urobilinogen Add Ur Microanalysis Leukocyte Esterase Rfl Urine RBC Urine WBC Ur Squamous Epith Cells Urine Bacteria Urine Casts Urine Yeast (Budding)
[2024-11-24 11:42] LABS: Glucose Point of Care 315 mg/dl (65-105)
[2024-11-24] MEDS: INSULIN ASPART (*BKC) 100 UNITS/ML 12 UNITS SUB-Q ×2 (11:42→15:39)
[2024-11-24] MEDS: INSULIN ASPART (*BKC) 100 UNITS/ML SUB-Q ×3 (11:42→20:32)
[2024-11-24] MEDS: SEVELAMER CARBONATE 800 MG TABLET PO ×2 (12:15→16:48)
--- NOTE | 2024-11-24 12:41 | PM.IMPN ---
Progress Note: A&P Assessment and Plan (1) Pleural effusion, left: Code(s): J90 - Pleural effusion, not elsewhere classified Status: Acute (2) Pneumonia: Code(s): J18.9 - Pneumonia, unspecified organism Status: Acute Plan This is a pleasant 54-year-old male with an extensive medical history including CAD status post CABG, peritoneal dialysis, obesity, insulin-dependent diabetes mellitus, atrial fibrillation, mechanical aortic valve replacement on warfarin, who presents to [place] ER with complaint of shortness of breath worsening for 6 days. It is worse with exertion and he is now on able to lie flat. Admits to cough which is productive of clear sputum. Denies leg swelling, fever, chest pain. He has been compliant with all of his medications and peritoneal dialysis. ER workup revealed atrial fibrillation in the 110s, blood pressure 133/85, saturating well on room air, respiratory rate 16. INR 2.7, sodium 131, BUN 55, serum creatinine 7.41, glucose 272, troponin 0.247, BNP [address]. Chest CT demonstrated a large left-sided pleural effusion with interval enlargement along with left lower lobe infiltrate. He received DuoNebs, Solu-Medrol, 1 L normal saline, ceftriaxone, azithromycin, Lasix. ----- Left pleural effusion could be parapneumonic. Thoracentesis has been planned.however cannot perform due to anticoagulant use. will hodl warfarin, need bridging anticoagulation. INR is still 2.7. Will continue to monitor INR and start bridging Lovenox when less than 2 Left-sided pneumonia with left-sided pleural effusion: Ceftriaxone and azithromycin scheduled for pneumonia. Thoracentesis ordered Elevated troponin with flat trend. Right flank pain that radiated to groin 11/23/2024: CT showed mild right hydronephrosis with ureteral stranding and inflammatory changes the urinary bladder which may represent cystitis with ascending infection. Likely past some stone urology consult. A inflammatory change around umbilical hernia clinically nontender in this area likely chronic finding End-stage renal disease on peritoneal dialysis nephrology consulted. DVT prophylaxis SCDs. Code status Full code. Diet Renal diabetic diet. Accu-Cheks. CAD status post CABG History of popliteal DVT Congestive heart failure combined systolic diastolic Hypertension Hyperlipidemia BEN not consistently on CPAP Paroxysmal Atrial fibrillation History of mechanical aortic valve replacement on warfarin Hypothyroidism Cholelithiasis Subjective Date/time seen: 11/24/24 12:41 Interval history: Patient had right-sided low back pain that radiated to his groin last night. This pain is better today. His CT was reviewed with the patient. No pain in the umbilical area. Review of Systems Review of Systems: All systems reviewed & are unremarkable except as noted in HPI and below (HPI) Exam Narrative: GENERAL: Well appearing, well-nourished, non-toxic, in no acute distress. HEAD: Normocephalic, atraumatic. NECK: Supple. No adenopathy, no masses. RESPIRATORY: Airway patent, respirations nonlabored. Crackles to auscultation left. CARDIOVASCULAR: Regular rate and rhythm without murmurs, rubs, or gallops. Peripheral pulses 2+ and equal bilaterally. ABDOMINAL: Soft, nontender, nondistended, no hepatosplenomegaly. Normoactive BS. MUSCULOSKELETAL: Moves all extremities. Strength/ROM intact without gross deformities. SKIN: Warm, dry, normal color. No rashes. NEURO: A&O X3. Speech clear. Cranial nerves II-XII intact. No ataxic movements. PSYCHIATRIC: Appropriate mood and affect. Normal interaction. Objective Data Vital Signs Vital Signs: Vital Signs - 24 hr 11/23/24 14:00 11/23/24 16:00 11/23/24 16:00 Temperature 98.7 F Pulse Rate 104 H 89 Respiratory Rate 18 Blood Pressure 138/74 Pulse Oximetry 100 100 Oxygen Delivery Room Air 11/23/24 16:00 11/23/24 18:00 11/23/24 20:00 Temperature 98.1 F Pulse Rate 102 H 109 H 111 H Respiratory Rate 18 Blood Pressure 126/76 Pulse Oximetry 100 Oxygen Delivery 11/23/24 20:00 11/23/24 20:10 11/23/24 20:35 Temperature Pulse Rate 111 H 109 H Respiratory Rate Blood Pressure Pulse Oximetry 98 Oxygen Delivery Room Air 11/23/24 20:46 11/23/24 22:00 11/23/24 23:00 Temperature Pulse Rate 109 H 79 Respiratory Rate Blood Pressure Pulse Oximetry 96 Oxygen Delivery Room Air 11/23/24 23:00 11/24/24 00:00 11/24/24 00:00 Temperature 97.6 F Pulse Rate 89 92 98 Respiratory Rate 18 Blood Pressure 119/78 Pulse Oximetry 96 100 Oxygen Delivery CPAP 11/24/24 00:17 11/24/24 02:00 11/24/24 04:00 Temperature Pulse Rate 89 79 Respiratory Rate Blood Pressure Pulse Oximetry 97 Oxygen Delivery Room Air 11/24/24 04:00 11/24/24 04:40 11/24/24 06:00 Temperature 97.6 F Pulse Rate 89 81 Respiratory Rate 18 Blood Pressure 109/76 Pulse Oximetry 98 96 Oxygen Delivery Room Air 11/24/24 07:29 11/24/24 08:00 11/24/24 08:20 Temperature 97.6 F Pulse Rate 80 80 80 Respiratory Rate 14 Blood Pressure 122/75 Pulse Oximetry 98 Oxygen Delivery 11/24/24 10:00 11/24/24 12:00 Temperature 98.6 F Pulse Rate 79 79 Respiratory Rate 16 Blood Pressure 133/85 Pulse Oximetry 98 Oxygen Delivery Intake/Output Intake/Output: Intake & Output 11/21/24 11/22/24 11/23/24 11/24/24 23:59 23:59 23:59 23:59 Intake Total 850 6341 680 Output Total 375 250 Balance 850 5934 430 Meds/Results Medications: Active Medications Generic Name Dose Route Start Last Admin Trade Name Freq PRN Reason Stop Dose Admin Albuterol 2 puff 11/23/24 01:57 Albuterol Sulfate (*Sp) Aerosol 1 Puff INHALATION QID PRN shortness of breath or wheezing Amlodipine Besylate 10 mg 11/23/24 21:00 11/23/24 20:46 Amlodipine Besylate 10 Mg Tablet PO 10 mg HS ASHLEY Administration Aspirin 81 mg 11/23/24 09:00 11/24/24 08:19 Aspirin 81 Mg Enteric Tablet PO 81 mg QAM ASHLEY Administration Atorvastatin Calcium 80 mg 11/23/24 09:00 11/24/24 08:18 Atorvastatin 40 Mg Tablet PO 80 mg DAILY ASHLEY Administration Calcitriol 0.25 mcg 11/23/24 09:00 11/24/24 08:20 Calcitriol 0.25 Mcg Capsule PO 0.25 mcg QAM ASHLEY Administration Calcium Acetate 667 mg 11/23/24 09:00 11/24/24 12:15 Calcium Acetate 667 Mg Tablet PO 667 mg QID ASHLEY Administration Colchicine 0.6 mg 11/25/24 09:00 Colchicine 0.6 Mg Tablet PO [id number]@0900 [facility] Cyclobenzaprine HCl 5 mg 11/23/24 01:57 11/23/24 16:25 Cyclobenzaprine Hcl 5 Mg Tablet PO 5 mg TID PRN Administration muscle spasm Dextrose 12.5 gm 11/22/24 20:30 Dextrose 50% 25 Gm/50 Ml Syringe IV PUSH PRN PRN Hypoglycemia Protocol Ezetimibe 10 mg 11/23/24 09:00 11/24/24 08:22 Ezetimibe 10 Mg Tablet PO 10 mg DAILY ASHLEY Administration Ergocalciferol 50,000 units 11/25/24 09:00 Ergocalciferol 50,000 Units Capsule PO Mo@0900 ASHLEY Famotidine 40 mg 11/23/24 21:00 11/23/24 20:47 Famotidine 20 Mg Tablet PO 40 mg HS ASHLEY Administration Fish Oil 1 gm 11/23/24 09:00 11/24/24 12:15 [place] 3 Polyunsat Fatty Acids 1 Gm Cap PO 1 gm QID ASHLEY Administration Gentamicin Sulfate 1 applic 11/23/24 21:00 11/24/24 00:31 Gentamicin Sulfate 0.1% Cr 15 Gm Tube TOPICAL Not Given HS ASHLEY Guaifenesin/Dextromethorphan 10 ml 11/22/24 23:50 11/23/24 00:16 Guaifenesin/Dextromethorphan 10 Ml Udc PO 10 ml BID PRN Administration Cough Dextrose 1,000 mls @ 100 mls/hr 11/22/24 20:30 Dextrose 5% 1,000 Ml IVPB PRN PRN Hypoglycemia Protocol Ceftriaxone Sodium 1 gm in 50 mls @ 100 mls/hr 11/23/24 20:00 11/23/24 21:20 Rocephin 1 Gm/Ns 50 Ml IVPB Infused Q24H ASHLEY Infusion Azithromycin 500 mg in 250 mls @ 250 mls/hr 11/23/24 21:00 11/23/24 21:50 Zithromax IVPB Infused Q24H [facility] Infusion Insulin Aspart 2 - 5 units 11/23/24 08:00 11/24/24 11:42 Insulin Aspart (*Bkc) 100 Units/Ml SUB-Q 4 units TIDWM ASHLEY Administration Protocol Insulin Aspart 1 - 2 units 11/22/24 21:00 11/23/24 23:51 Insulin Aspart (*Bkc) 100 Units/Ml SUB-Q Not Given HS [facility] Protocol Insulin Aspart 12 units 11/23/24 11:30 11/24/24 11:42 Insulin Aspart (*Bkc) 100 Units/Ml SUB-Q 12 units TIDAC [facility] Administration Insulin Glargine 40 units 11/23/24 11:15 11/24/24 08:09 Insulin Glargine (*Bkc) 100 Units/Ml SUB-Q Not Given DAILY@0900 [facility] Insulin Human NPH 30 units 11/23/24 21:00 11/23/24 23:51 Insulin Human Nph (*Bkc) 100 Units/Ml SUB-Q Not Given [facility] Levothyroxine Sodium 25 mcg 11/23/24 06:30 11/24/24 06:34 Levothyroxine Sodium 25 Mcg Tablet PO 25 mcg DAILY@0630 [facility] Administration Lidocaine 1 patch 11/23/24 09:00 11/24/24 08:15 Lidocaine 5% Patch TRANSDERM 1 patch DAILY [facility] Administration Linaclotide 72 mcg 11/23/24 01:57 Linaclotide 72 Mcg Capsule PO DAILY PRN Diarrhea Loratadine 10 mg 11/23/24 09:00 11/24/24 08:21 Loratadine 10 Mg Tablet PO 10 mg QAM [facility] Administration Metoprolol Tartrate 50 mg 11/22/24 23:40 11/24/24 08:20 Metoprolol Tartrate 50 Mg Tab PO 50 mg Q12HR [facility] Administration Morphine Sulfate 2 mg 11/23/24 17:27 11/24/24 08:09 Morphine Sulfate (*Crx) 2 Mg/Ml Inj IV PUSH 2 mg Q4H PRN Administration Pain Rated 7-10 Nitroglycerin 0.4 mg 11/23/24 09:23 Nitroglycerin Sl 0.4 Mg Tablet SUBLINGUAL Q5MIN PRN Chest Pain Pantoprazole Sodium 40 mg 11/23/24 09:00 11/24/24 08:31 Pantoprazole 40 Mg Tablet PO 40 mg QAM [facility] Administration Potassium Chloride 20 meq 11/23/24 08:00 11/24/24 08:19 Potassium Chloride 20 Meq Er Tablet PO 20 meq DAILY@0800 [facility] Administration Sevelamer Carbonate 800 mg 11/24/24 12:00 11/24/24 12:15 Sevelamer Carbonate 800 Mg Tablet PO 800 mg TIDWM [facility] Administration Tamsulosin HCl 0.4 mg 11/23/24 09:00 11/24/24 08:31 Tamsulosin Hcl 0.4 Mg Capsule PO 0.4 mg BID [facility] Administration Torsemide 100 mg 11/23/24 09:00 11/24/24 08:31 Torsemide 20 Mg Tablet PO 100 mg QAM [facility] Administration Warfarin Sodium 3 mg 11/23/24 17:00 Warfarin (*Pbkc) 3 Mg Tablet PO DAILY@1700 [facility] Radiology Results: ITS Impressions Chest X-Ray 11/22/24 19:16 IMPRESSION: Large left-sided pleural effusion, increased from 09/08/2024. Chest CT 11/22/24 19:18 IMPRESSION: Interval development of a left lower lobe infiltrate with increased left-sided pleural effusion, as detailed above. Redemonstration of mediastinal lymphadenopathy. Abdomen/Pelvis CT 11/23/24 20:48 IMPRESSION: Segmental left lower lobe atelectasis/consolidation. Large left pleural effusion. Cholelithiasis, without CT evidence of cholecystitis. Mild right hydronephrosis with ureteral stranding and inflammatory change of the urinary bladder, findings may represent cystitis with ascending infection. Inflamed fat-containing umbilical hernia. Moderate body wall edema. Labs Labs: Laboratory Results - last 24 hr 11/23/24 11/23/24 11/23/24 16:30 20:02 21:53 WBC RBC Hgb Hct MCV MCH MCHC RDW Plt Count MPV PT INR Sodium Potassium Chloride Carbon Dioxide Anion Gap BUN Creatinine Estim Creat Clear Calc Estimated GFR Glucose POC Capillary Glucose > 500 H* 314 H Calcium Phosphorus Magnesium Total Bilirubin AST ALT Alkaline Phosphatase Total Protein Albumin Urine Color Yellow Urine Appearance Cloudy H Urine pH 5.0 Ur Specific [place] 1.025 Urine Protein 1+ H Urine Glucose (UA) 3+ H Urine Ketones Trace H Ur Blood (Man) 2+ H Urine Nitrate Negative Urine Bilirubin Negative Urine Urobilinogen 0.2 Add Ur Microanalysis Reviewed Leukocyte Esterase Rfl 1+ H Urine RBC 6-10 H Urine WBC 21-50 H Ur Squamous Epith Cells None seen Urine Bacteria None seen Urine Casts 6-10 Urine Yeast (Budding) Present H 11/23/24 11/24/24 11/24/24 23:51 04:35 07:57 WBC 7.9 RBC 4.06 L Hgb 12.0 L Hct 37.6 L MCV 92.6 MCH 29.6 MCHC 31.9 L RDW 13.9 Plt Count 170 MPV 10.9 H PT 28.6 H INR 2.7 Sodium 131 L Potassium 4.3 Chloride 92 L Carbon Dioxide 23 Anion Gap 16 H BUN 67 H Creatinine 8.01 H Estim Creat Clear Calc 12 Estimated GFR 7 L Glucose 156 H POC Capillary Glucose 184 H 145 H Calcium 8.6 Phosphorus 6.6 H Magnesium 1.7 Total Bilirubin 0.7 AST 22 ALT 31 Alkaline Phosphatase 74 Total Protein 6.0 L Albumin 3.6 Urine Color Urine Appearance Urine pH Ur Specific [place] Urine Protein Urine Glucose (UA) Urine Ketones Ur Blood (Man) Urine Nitrate Urine Bilirubin Urine Urobilinogen Add Ur Microanalysis Leukocyte Esterase Rfl Urine RBC Urine WBC Ur Squamous Epith Cells Urine Bacteria Urine Casts Urine Yeast (Budding) 11/24/24 11:30 WBC RBC Hgb Hct MCV MCH MCHC RDW Plt Count MPV PT INR Sodium Potassium Chloride Carbon Dioxide Anion Gap BUN Creatinine Estim Creat Clear Calc Estimated GFR Glucose POC Capillary Glucose 315 H Calcium Phosphorus Magnesium Total Bilirubin AST ALT Alkaline Phosphatase Total Protein Albumin Urine Color Urine Appearance Urine pH Ur Specific [place] Urine Protein Urine Glucose (UA) Urine Ketones Ur Blood (Man) Urine Nitrate Urine Bilirubin Urine Urobilinogen Add Ur Microanalysis Leukocyte Esterase Rfl Urine RBC Urine WBC Ur Squamous Epith Cells Urine Bacteria Urine Casts Urine Yeast (Budding)
[2024-11-24 15:35] LABS: Glucose Point of Care 358 mg/dl (65-105)
--- NOTE | 2024-11-24 15:36 | PC.NURSE ---
pt requests an early blood sugar check, found to be at 358. Will give scheduled insulin
[2024-11-24 17:09] LABS: Glucose Point of Care 360 mg/dl (65-105)
[2024-11-24] MEDS: GENTAMICIN SULFATE 0.1% CR 15 GM TUBE 1 APPLIC TOPICAL (19:15)
[2024-11-24] MEDS: AZITHROMYCIN 500 MG/NS 250 ML 500 MG/250 ML BAG 250 MG IVPB (20:12)
[2024-11-24] MEDS: amLODIPine BESYLATE 10 MG TABLET PO (20:18)
[2024-11-24] MEDS: FAMOTIDINE 20 MG TABLET 40 MG PO (20:18)
[2024-11-24] MEDS: ALBUTEROL SULFATE (*SP) AEROSOL 1 PUFF 2 PUFF INHALATION (20:22)
[2024-11-24 20:38] LABS: Glucose Point of Care 341 mg/dl (65-105)
[2024-11-24] MEDS: INSULIN HUMAN NPH (*BKC) 100 UNITS/ML 30 UNITS SUB-Q (20:40)
[2024-11-24] MEDS: guaiFENesin/DEXTROMETHORPHAN 10 ML UDC PO (22:19)
[2024-11-24] MEDS: HYDROcodone/acetaminophen (*CRX) 5-325 MG TABLET 1 TAB PO (22:20)
[2024-11-25] VITALS (14 sets, daily range): BP systolic 110–144; BP diastolic 63–80; PULSE 78–99; RESP 18–22; TEMP 36.4–36.6; O2SAT 96–100
[2024-11-25] MEDS: CALCIUM ACETATE 667 MG TABLET PO ×4 (00:15→21:22)
[2024-11-25 05:00] LABS: Hemoglobin 11.9 g/dL (14.0-18.0); Mean Corpuscular HGB Conc 33.1 g/dl (32-36); Mean Corpuscular Hemoglobin 30.2 pg (26-34); Mean Corpuscular Volume 91.4 fl (80-100); Mean Platelet Volume 11.1 fl (7.4-10.4); Platelet Count Result 167 k/mm3 (150-375); Red Blood Count 3.94 M/mm3 (4.6-6.20); Red Cell Distribution Width 13.6 % (11.5-14.5); White Blood Count 7.1 K/mm3 (4.5-10.0)
[2024-11-25 05:15] LABS: INR 2.3; Prothrombin Time 25.7 Seconds (11.1-14.7)
[2024-11-25 05:16] LABS: Magnesium 1.7 mg/dL (1.6-2.3)
[2024-11-25 07:56] LABS: Glucose Point of Care 223 mg/dl (65-105)
--- NOTE | 2024-11-25 09:32 | PM.PNNEP ---
Progress Note: A&P Assessment and Plan (1) End stage renal disease: Code(s): N18.6 - End stage renal disease Status: Chronic Assessment and Plan: continue nightly peritoneal dialysis treatments follow electrolytes, volume status and clearance primary referral specialist = Dr Sharath Reyes outpatient dialysis unit = [facility] (2) Pneumonia: Code(s): J18.9 - Pneumonia, unspecified organism Status: Acute Assessment and Plan: presumed to contributing to shortness of breath on antibiotics follow culture data (3) Pleural effusion, left: Code(s): J90 - Pleural effusion, not elsewhere classified Status: Acute Assessment and Plan: possibly parapenumonic... plan thoracentesis once INR acceptable suspect contributing to shortness of breath as well (4) Right flank pain: Code(s): R10.9 - Unspecified abdominal pain Status: Acute Assessment and Plan: noted on admission with radiation to groin admission CT showed mild right hydronephrosis with ureteral stranding and inflammatory changes the urinary bladder which may represent cystitis with ascending infection suspect he may have passed a kindey stone continue supportive therapy (5) Hypertension: Code(s): I10 - Essential (primary) hypertension Status: Chronic Assessment and Plan: reasonable control at this time follow trend of hemodynamics (6) Anemia: Code(s): D64.9 - Anemia, unspecified Status: Chronic Assessment and Plan: due to ESRD H/H at goal if not supratherapeutic resume CORRINE if Hgb < 10 (7) Obstructive sleep apnea: Code(s): G47.33 - Obstructive sleep apnea (adult) (pediatric) Status: Chronic Assessment and Plan: continue nightly CPAP use (8) Type 1 diabetes mellitus with hyperglycemia: Code(s): E10.65 - Type 1 diabetes mellitus with hyperglycemia Status: Acute Assessment and Plan: follow accu-cheks glycemic control per hospitalist Will continue to follow. Subjective Date/time seen: 11/25/24 09:32 Interval history: Follow-up for end stage renal disease on peritoneal dialysis. Chart reviewed -- assuming care from Dr. Rodriguez; tolerated peritoneal dialysis treatment overnight without any issues or problems ([facility] supervised and seen on 9:22AM); still reports shortness of breath at the time of my visit; no other acute complaints voiced at the time of my visit. Exam Narrative: General: WD/WN male in NAD Heart: normal S1 and S2; no rub Lungs: clear anteriorly, decreased at bases Abdomen: soft, nontender, nondistended, positive bowel sounds Extremities: no cyanosis or clubbing; trace - 1+ edema (chronic) Skin: warm and dry Objective Data Vital Signs Vital Signs: Vital Signs Temp Pulse Resp BP Pulse Ox O2 Del Method O2 Flow Rate 11/25/24 08:00 80 Room Air 11/25/24 07:55 97.5 F L 91 22 H 110/63 0 11/25/24 07:45 97.5 F L 91 22 H 110/63 96 11/25/24 06:00 78 11/25/24 04:10 Room Air 11/25/24 04:00 97.9 F 79 18 112/64 96 11/25/24 04:00 79 11/25/24 02:24 96 97 CPAP 11/25/24 02:00 82 11/25/24 00:30 Room Air 11/25/24 00:00 81 11/25/24 00:00 97.6 F 82 18 119/69 98 11/24/24 22:00 82 11/24/24 20:22 85 18 11/24/24 20:18 85 11/24/24 20:15 Room Air 11/24/24 20:00 80 11/24/24 20:00 97.8 F 79 18 118/74 100 11/24/24 19:00 97.7 F 86 20 119/67 11/24/24 18:00 79 11/24/24 16:00 79 11/24/24 15:51 97.7 F 79 16 123/77 99 11/24/24 14:00 79 Intake/Output Intake/Output: Intake & Output 11/22/24 11/23/24 11/24/24 11/25/24 23:59 23:59 23:59 23:59 Intake Total 850 2852 0609 2810 Output Total 375 350 150 Balance 850 5167 0654 1024 Meds/Results Medications: Active Medications Generic Name Dose Route Start Last Admin Trade Name Freq PRN Reason Stop Dose Admin Hydrocodone Bitart/Acetaminophen 1 tab 11/24/24 12:45 11/24/24 22:20 Hydrocodone/Acetaminophen (*Crx) 5-325 Mg Tablet PO 1 tab Q4H PRN Administration Pain Rated 4-6 Albuterol 2 puff 11/23/24 01:57 11/24/24 20:22 Albuterol Sulfate (*Sp) Aerosol 1 Puff INHALATION 2 puff QID PRN Administration shortness of breath or wheezing Alprazolam 0.25 mg 11/25/24 12:45 Alprazolam (*Crx) 0.25 Mg Tablet PO Q8HR PRN Anxiety Amlodipine Besylate 10 mg 11/23/24 21:00 11/24/24 20:18 Amlodipine Besylate 10 Mg Tablet PO 10 mg HS ASHLEY Administration Aspirin 81 mg 11/23/24 09:00 11/25/24 10:11 Aspirin 81 Mg Enteric Tablet PO 81 mg QAM ASHLEY Administration Atorvastatin Calcium 80 mg 11/23/24 09:00 11/25/24 10:06 Atorvastatin 40 Mg Tablet PO 80 mg DAILY ASHLEY Administration Calcitriol 0.25 mcg 11/23/24 09:00 11/25/24 10:06 Calcitriol 0.25 Mcg Capsule PO 0.25 mcg QAM ASHLEY Administration Calcium Acetate 667 mg 11/23/24 09:00 11/25/24 12:25 Calcium Acetate 667 Mg Tablet PO 667 mg QID ASHLEY Administration Colchicine 0.6 mg 11/25/24 09:00 11/25/24 12:26 Colchicine 0.6 Mg Tablet PO 0.6 mg MoWeFr@0900 ASHLEY Administration Cyclobenzaprine HCl 5 mg 11/23/24 01:57 11/23/24 16:25 Cyclobenzaprine Hcl 5 Mg Tablet PO 5 mg TID PRN Administration muscle spasm Dextrose 12.5 gm 11/22/24 20:30 Dextrose 50% 25 Gm/50 Ml Syringe IV PUSH PRN PRN Hypoglycemia Protocol Ezetimibe 10 mg 11/23/24 09:00 11/25/24 10:05 Ezetimibe 10 Mg Tablet PO 10 mg DAILY ASHLEY Administration Ergocalciferol 50,000 units 11/25/24 09:00 11/25/24 12:25 Ergocalciferol 50,000 Units Capsule PO 50,000 units Mo@0900 ASHLEY Administration Famotidine 40 mg 11/23/24 21:00 11/24/24 20:18 Famotidine 20 Mg Tablet PO 40 mg HS ASHLEY Administration Fish Oil 1 gm 11/23/24 09:00 11/25/24 12:26 [place] 3 Polyunsat Fatty Acids 1 Gm Cap PO 1 gm QID ASHLEY Administration Gentamicin Sulfate 1 applic 11/23/24 21:00 11/24/24 19:15 Gentamicin Sulfate 0.1% Cr 15 Gm Tube TOPICAL 1 applic HS ASHLEY Administration Guaifenesin/Dextromethorphan 10 ml 11/22/24 23:50 11/24/24 22:19 Guaifenesin/Dextromethorphan 10 Ml Udc PO 10 ml BID PRN Administration Cough Dextrose 1,000 mls @ 100 mls/hr 11/22/24 20:30 Dextrose 5% 1,000 Ml IVPB PRN PRN Hypoglycemia Protocol Ceftriaxone Sodium 1 gm in 50 mls @ 100 mls/hr 11/23/24 20:00 11/24/24 20:42 Rocephin 1 Gm/Ns 50 Ml IVPB Infused Q24H ASHLEY Infusion Azithromycin 500 mg in 250 mls @ 250 mls/hr 11/23/24 21:00 11/24/24 21:12 Zithromax IVPB Infused Q24H [facility] Infusion Insulin Aspart 2 - 5 units 11/23/24 08:00 11/25/24 12:41 Insulin Aspart (*Bkc) 100 Units/Ml SUB-Q [facility] Protocol Insulin Aspart 1 - 2 units 11/22/24 21:00 11/24/24 20:32 Insulin Aspart (*Bkc) 100 Units/Ml SUB-Q 2 units HS [facility] Administration Protocol Insulin Aspart 12 units 11/23/24 11:30 11/25/24 12:40 Insulin Aspart (*Bkc) 100 Units/Ml SUB-Q Not Given TIDAC [facility] Insulin Glargine 40 units 11/23/24 11:15 11/25/24 10:21 Insulin Glargine (*Bkc) 100 Units/Ml SUB-Q 40 units DAILY@0900 [facility] Administration Insulin Human NPH 30 units 11/23/24 21:00 11/24/24 20:40 Insulin Human Nph (*Bkc) 100 Units/Ml SUB-Q 30 units HS [facility] Administration Levothyroxine Sodium 25 mcg 11/23/24 06:30 11/25/24 06:51 Levothyroxine Sodium 25 Mcg Tablet PO Not Given DAILY@0630 [facility] Lidocaine 1 patch 11/23/24 09:00 11/25/24 12:40 Lidocaine 5% Patch TRANSDERM Not Given DAILY [facility] Linaclotide 72 mcg 11/23/24 01:57 Linaclotide 72 Mcg Capsule PO DAILY PRN Diarrhea Loratadine 10 mg 11/23/24 09:00 11/25/24 10:05 Loratadine 10 Mg Tablet PO 10 mg QAM ASHLEY Administration Metoprolol Tartrate 50 mg 11/22/24 23:40 11/25/24 10:05 Metoprolol Tartrate 50 Mg Tab PO 50 mg Q12HR ASHLEY Administration Morphine Sulfate 2 mg 11/23/24 17:27 11/24/24 08:09 Morphine Sulfate (*Crx) 2 Mg/Ml Inj IV PUSH 2 mg Q4H PRN Administration Pain Rated 7-10 Nitroglycerin 0.4 mg 11/23/24 09:23 Nitroglycerin Sl 0.4 Mg Tablet SUBLINGUAL Q5MIN PRN Chest Pain Pantoprazole Sodium 40 mg 11/23/24 09:00 11/25/24 10:06 Pantoprazole 40 Mg Tablet PO 40 mg QAM [facility] Administration Potassium Chloride 20 meq 11/23/24 08:00 11/25/24 10:06 Potassium Chloride 20 Meq Er Tablet PO 20 meq DAILY@0800 [facility] Administration Sevelamer Carbonate 800 mg 11/24/24 12:00 11/25/24 10:18 Sevelamer Carbonate 800 Mg Tablet PO 800 mg TIDWM [facility] Administration Tamsulosin HCl 0.4 mg 11/23/24 09:00 11/25/24 10:05 Tamsulosin Hcl 0.4 Mg Capsule PO 0.4 mg BID [facility] Administration Torsemide 100 mg 11/23/24 09:00 11/25/24 10:06 Torsemide 20 Mg Tablet PO 100 mg QAM [facility] Administration Warfarin Sodium 3 mg 11/23/24 17:00 Warfarin (*Pbkc) 3 Mg Tablet PO DAILY@1700 [facility] Radiology Results: ITS Impressions Chest X-Ray 11/22/24 19:16 IMPRESSION: Large left-sided pleural effusion, increased from 09/08/2024. Chest CT 11/22/24 19:18 IMPRESSION: Interval development of a left lower lobe infiltrate with increased left-sided pleural effusion, as detailed above. Redemonstration of mediastinal lymphadenopathy. Abdomen/Pelvis CT 11/23/24 20:48 IMPRESSION: Segmental left lower lobe atelectasis/consolidation. Large left pleural effusion. Cholelithiasis, without CT evidence of cholecystitis. Mild right hydronephrosis with ureteral stranding and inflammatory change of the urinary bladder, findings may represent cystitis with ascending infection. Inflamed fat-containing umbilical hernia. Moderate body wall edema. Abdomen X-Ray 11/24/24 13:45 IMPRESSION: NO ACUTE ABDOMINAL FINDINGS. No definite stones seen. Noncontrast CT is better for evaluation. Labs Labs: Laboratory Tests 11/25/24 04:30 11/24/24 04:35 Microbiology 11/23/24 21:53 Urine Clean Catch Urine Culture - Final
[2024-11-25] MEDS: LORATADINE 10 MG TABLET PO (10:05)
[2024-11-25] MEDS: METOPROLOL TARTRATE 50 MG TAB PO ×2 (10:05→21:22)
[2024-11-25] MEDS: TAMSULOSIN HCL 0.4 MG CAPSULE PO ×2 (10:05→18:08)
[2024-11-25] MEDS: EZETIMIBE 10 MG TABLET PO (10:05)
[2024-11-25] MEDS: PANTOPRAZOLE 40 MG TABLET PO (10:06)
[2024-11-25] MEDS: calcitrioL 0.25 MCG CAPSULE PO (10:06)
[2024-11-25] MEDS: TORSEMIDE 20 MG TABLET 100 MG PO (10:06)
[2024-11-25] MEDS: ATORVASTATIN 40 MG TABLET 80 MG PO (10:06)
[2024-11-25] MEDS: POTASSIUM CHLORIDE 20 MEQ ER TABLET PO (10:06)
[2024-11-25] MEDS: OMEGA 3 POLYUNSAT FATTY ACIDS 1 GM CAP PO ×4 (10:06→21:22)
[2024-11-25] MEDS: ASPIRIN 81 MG ENTERIC TABLET PO (10:11)
[2024-11-25] MEDS: SEVELAMER CARBONATE 800 MG TABLET PO ×3 (10:18→18:13)
[2024-11-25] MEDS: INSULIN ASPART (*BKC) 100 UNITS/ML 12 UNITS SUB-Q ×2 (10:18→18:13)
[2024-11-25] MEDS: INSULIN GLARGINE (*BKC) 100 UNITS/ML 40 UNITS SUB-Q (10:21)
--- NOTE | 2024-11-25 11:02 | PM.IMPN ---
Progress Note: A&P Assessment and Plan (1) Pleural effusion, left: Code(s): J90 - Pleural effusion, not elsewhere classified Status: Acute (2) Pneumonia: Code(s): J18.9 - Pneumonia, unspecified organism Status: Acute Plan This is a pleasant 54-year-old male with an extensive medical history including CAD status post CABG, peritoneal dialysis, obesity, insulin-dependent diabetes mellitus, atrial fibrillation, mechanical aortic valve replacement on warfarin, who presents to [place] ER with complaint of shortness of breath worsening for 6 days. It is worse with exertion and he is now on able to lie flat. Admits to cough which is productive of clear sputum. Denies leg swelling, fever, chest pain. He has been compliant with all of his medications and peritoneal dialysis. ER workup revealed atrial fibrillation in the 110s, blood pressure 133/85, saturating well on room air, respiratory rate 16. INR 2.7, sodium 131, BUN 55, serum creatinine 7.41, glucose 272, troponin 0.247, BNP [address]. Chest CT demonstrated a large left-sided pleural effusion with interval enlargement along with left lower lobe infiltrate. He received DuoNebs, Solu-Medrol, 1 L normal saline, ceftriaxone, azithromycin, Lasix. ----- Left pleural effusion could be parapneumonic. Thoracentesis has been planned.however cannot perform due to anticoagulant use. will hodl warfarin, need bridging anticoagulation. INR is still 2.7. Will continue to monitor INR and start bridging Lovenox when less than 2 Left-sided pneumonia with left-sided pleural effusion: Ceftriaxone and azithromycin scheduled for pneumonia. Thoracentesis ordered however awaiting improvement in INR. Allowing it to drift off. Start bridging Lovenox when INR less than 2 Elevated troponin with flat trend. Right flank pain that radiated to groin 11/23/2024: CT showed mild right hydronephrosis with ureteral stranding and inflammatory changes the urinary bladder which may represent cystitis with ascending infection. Likely passed some stone. Urology consult. Inflammatory change around umbilical hernia clinically nontender in this area likely chronic finding End-stage renal disease on peritoneal dialysis nephrology consulted. DVT prophylaxis SCDs. Code status Full code. Diet Renal diabetic diet. Accu-Cheks. CAD status post CABG History of popliteal DVT Congestive heart failure combined systolic diastolic Hypertension Hyperlipidemia BEN not consistently on CPAP Paroxysmal Atrial fibrillation History of mechanical aortic valve replacement on warfarin Hypothyroidism Cholelithiasis Subjective Date/time seen: 11/25/24 11:02 Interval history: Abdominal pain has resolved. Still has some intermittent shortness of breath. Blood sugar trend reviewed. INR down to 2.3. Review of Systems Review of Systems: All systems reviewed & are unremarkable except as noted in HPI and below (HPI) Exam Narrative: GENERAL: Well appearing, well-nourished, non-toxic, in no acute distress. HEAD: Normocephalic, atraumatic. NECK: Supple. No adenopathy, no masses. RESPIRATORY: Airway patent, respirations nonlabored. Crackles to auscultation left. CARDIOVASCULAR: Regular rate and rhythm without murmurs, rubs, or gallops. Peripheral pulses 2+ and equal bilaterally. ABDOMINAL: Soft, nontender, nondistended, no hepatosplenomegaly. Normoactive BS. MUSCULOSKELETAL: Moves all extremities. Strength/ROM intact without gross deformities. SKIN: Warm, dry, normal color. No rashes. NEURO: A&O X3. Speech clear. Cranial nerves II-XII intact. No ataxic movements. PSYCHIATRIC: Appropriate mood and affect. Normal interaction. Objective Data Vital Signs Vital Signs: Vital Signs - 24 hr 11/24/24 12:00 11/24/24 12:00 11/24/24 14:00 Temperature 98.6 F Pulse Rate 79 79 79 Respiratory Rate 16 Blood Pressure 133/85 Pulse Oximetry 98 Oxygen Delivery 11/24/24 15:51 11/24/24 16:00 11/24/24 18:00 Temperature 97.7 F Pulse Rate 79 79 79 Respiratory Rate 16 Blood Pressure 123/77 Pulse Oximetry 99 Oxygen Delivery 11/24/24 19:00 11/24/24 20:00 11/24/24 20:00 Temperature 97.7 F 97.8 F Pulse Rate 86 79 80 Respiratory Rate 20 18 Blood Pressure 119/67 118/74 Pulse Oximetry 100 Oxygen Delivery 11/24/24 20:15 11/24/24 20:18 11/24/24 20:22 Temperature Pulse Rate 85 85 Respiratory Rate 18 Blood Pressure Pulse Oximetry Oxygen Delivery Room Air 11/24/24 22:00 11/25/24 00:00 11/25/24 00:00 Temperature 97.6 F Pulse Rate 82 82 81 Respiratory Rate 18 Blood Pressure 119/69 Pulse Oximetry 98 Oxygen Delivery 04/07/25 00:30 11/25/24 02:00 11/25/24 02:24 Temperature Pulse Rate 82 96 Respiratory Rate Blood Pressure Pulse Oximetry 97 Oxygen Delivery Room Air CPAP 11/25/24 04:00 11/25/24 04:00 11/25/24 04:10 Temperature 97.9 F Pulse Rate 79 79 Respiratory Rate 18 Blood Pressure 112/64 Pulse Oximetry 96 Oxygen Delivery Room Air 11/25/24 06:00 11/25/24 07:45 11/25/24 10:05 Temperature 97.5 F L Pulse Rate 78 91 80 Respiratory Rate 22 H Blood Pressure 110/63 Pulse Oximetry 96 Oxygen Delivery Intake/Output Intake/Output: Intake & Output 11/22/24 11/23/24 11/24/24 11/25/24 23:59 23:59 23:59 23:59 Intake Total 850 6341 3648 300 Output Total 375 350 150 Balance 850 5966 3298 150 Meds/Results Medications: Active Medications Generic Name Dose Route Start Last Admin Trade Name Freq PRN Reason Stop Dose Admin Hydrocodone Bitart/Acetaminophen 1 tab 11/24/24 12:45 11/24/24 22:20 Hydrocodone/Acetaminophen (*Crx) 5-325 Mg Tablet PO 1 tab Q4H PRN Administration Pain Rated 4-6 Albuterol 2 puff 11/23/24 01:57 11/24/24 20:22 Albuterol Sulfate (*Sp) Aerosol 1 Puff INHALATION 2 puff QID PRN Administration shortness of breath or wheezing Amlodipine Besylate 10 mg 11/23/24 21:00 11/24/24 20:18 Amlodipine Besylate 10 Mg Tablet PO 10 mg HS ASHLEY Administration Aspirin 81 mg 11/23/24 09:00 11/25/24 10:11 Aspirin 81 Mg Enteric Tablet PO 81 mg QAM ASHLEY Administration Atorvastatin Calcium 80 mg 11/23/24 09:00 11/25/24 10:06 Atorvastatin 40 Mg Tablet PO 80 mg DAILY ASHLEY Administration Calcitriol 0.25 mcg 11/23/24 09:00 11/25/24 10:06 Calcitriol 0.25 Mcg Capsule PO 0.25 mcg QAM ASHLEY Administration Calcium Acetate 667 mg 11/23/24 09:00 11/24/24 20:18 Calcium Acetate 667 Mg Tablet PO 667 mg QID ASHLEY Administration Colchicine 0.6 mg 11/25/24 09:00 Colchicine 0.6 Mg Tablet PO MoWeFr@0900 ASHLEY Cyclobenzaprine HCl 5 mg 11/23/24 01:57 11/23/24 16:25 Cyclobenzaprine Hcl 5 Mg Tablet PO 5 mg TID PRN Administration muscle spasm Dextrose 12.5 gm 11/22/24 20:30 Dextrose 50% 25 Gm/50 Ml Syringe IV PUSH PRN PRN Hypoglycemia Protocol Ezetimibe 10 mg 11/23/24 09:00 11/25/24 10:05 Ezetimibe 10 Mg Tablet PO 10 mg DAILY ASHLEY Administration Ergocalciferol 50,000 units 11/25/24 09:00 Ergocalciferol 50,000 Units Capsule PO Mo@0900 ASHLEY Famotidine 40 mg 11/23/24 21:00 11/24/24 20:18 Famotidine 20 Mg Tablet PO 40 mg HS ASHLEY Administration Fish Oil 1 gm 11/23/24 09:00 11/25/24 10:06 [place] 3 Polyunsat Fatty Acids 1 Gm Cap PO 1 gm QID ASHLEY Administration Gentamicin Sulfate 1 applic 11/23/24 21:00 11/24/24 19:15 Gentamicin Sulfate 0.1% Cr 15 Gm Tube TOPICAL 1 applic HS ASHLEY Administration Guaifenesin/Dextromethorphan 10 ml 11/22/24 23:50 11/24/24 22:19 Guaifenesin/Dextromethorphan 10 Ml Udc PO 10 ml BID PRN Administration Cough Dextrose 1,000 mls @ 100 mls/hr 11/22/24 20:30 Dextrose 5% 1,000 Ml IVPB PRN PRN Hypoglycemia Protocol Ceftriaxone Sodium 1 gm in 50 mls @ 100 mls/hr 11/23/24 20:00 11/24/24 20:42 Rocephin 1 Gm/Ns 50 Ml IVPB Infused Q24H ASHLEY Infusion Azithromycin 500 mg in 250 mls @ 250 mls/hr 11/23/24 21:00 11/24/24 21:12 Zithromax IVPB Infused Q24H ASHLEY Infusion Insulin Aspart 2 - 5 units 11/23/24 08:00 11/25/24 10:22 Insulin Aspart (*Bkc) 100 Units/Ml SUB-Q Not Given TIDWM [facility] Protocol Insulin Aspart 1 - 2 units 11/22/24 21:00 11/24/24 20:32 Insulin Aspart (*Bkc) 100 Units/Ml SUB-Q 2 units HS ASHLEY Administration Protocol Insulin Aspart 12 units 11/23/24 11:30 11/25/24 10:18 Insulin Aspart (*Bkc) 100 Units/Ml SUB-Q 12 units TIDAC ASHLEY Administration Insulin Glargine 40 units 11/23/24 11:15 11/25/24 10:21 Insulin Glargine (*Bkc) 100 Units/Ml SUB-Q 40 units DAILY@0900 [facility] Administration Insulin Human NPH 30 units 11/23/24 21:00 11/24/24 20:40 Insulin Human Nph (*Bkc) 100 Units/Ml SUB-Q 30 units HS ASHLEY Administration Levothyroxine Sodium 25 mcg 11/23/24 06:30 11/25/24 06:51 Levothyroxine Sodium 25 Mcg Tablet PO Not Given DAILY@0630 ASHLEY Lidocaine 1 patch 11/23/24 09:00 11/24/24 08:15 Lidocaine 5% Patch TRANSDERM 1 patch DAILY ASHLEY Administration Linaclotide 72 mcg 11/23/24 01:57 Linaclotide 72 Mcg Capsule PO DAILY PRN Diarrhea Loratadine 10 mg 11/23/24 09:00 11/25/24 10:05 Loratadine 10 Mg Tablet PO 10 mg QAM [facility] Administration Metoprolol Tartrate 50 mg 11/22/24 23:40 11/25/24 10:05 Metoprolol Tartrate 50 Mg Tab PO 50 mg Q12HR ASHLEY Administration Morphine Sulfate 2 mg 11/23/24 17:27 11/24/24 08:09 Morphine Sulfate (*Crx) 2 Mg/Ml Inj IV PUSH 2 mg Q4H PRN Administration Pain Rated 7-10 Nitroglycerin 0.4 mg 11/23/24 09:23 Nitroglycerin Sl 0.4 Mg Tablet SUBLINGUAL Q5MIN PRN Chest Pain Pantoprazole Sodium 40 mg 11/23/24 09:00 11/25/24 10:06 Pantoprazole 40 Mg Tablet PO 40 mg QAM ASHLEY Administration Potassium Chloride 20 meq 11/23/24 08:00 11/25/24 10:06 Potassium Chloride 20 Meq Er Tablet PO 20 meq DAILY@0800 [facility] Administration Sevelamer Carbonate 800 mg 11/24/24 12:00 11/25/24 10:18 Sevelamer Carbonate 800 Mg Tablet PO 800 mg TIDWM [facility] Administration Tamsulosin HCl 0.4 mg 11/23/24 09:00 11/25/24 10:05 Tamsulosin Hcl 0.4 Mg Capsule PO 0.4 mg BID ASHLEY Administration Torsemide 100 mg 11/23/24 09:00 11/25/24 10:06 Torsemide 20 Mg Tablet PO 100 mg QAM ASHLEY Administration Warfarin Sodium 3 mg 11/23/24 17:00 Warfarin (*Pbkc) 3 Mg Tablet PO DAILY@1700 [facility] Radiology Results: ITS Impressions Chest X-Ray 11/22/24 19:16 IMPRESSION: Large left-sided pleural effusion, increased from 09/08/2024. Chest CT 11/22/24 19:18 IMPRESSION: Interval development of a left lower lobe infiltrate with increased left-sided pleural effusion, as detailed above. Redemonstration of mediastinal lymphadenopathy. Abdomen/Pelvis CT 11/23/24 20:48 IMPRESSION: Segmental left lower lobe atelectasis/consolidation. Large left pleural effusion. Cholelithiasis, without CT evidence of cholecystitis. Mild right hydronephrosis with ureteral stranding and inflammatory change of the urinary bladder, findings may represent cystitis with ascending infection. Inflamed fat-containing umbilical hernia. Moderate body wall edema. Abdomen X-Ray 11/24/24 13:45 IMPRESSION: NO ACUTE ABDOMINAL FINDINGS. No definite stones seen. Noncontrast CT is better for evaluation. Labs Labs: Laboratory Results - last 24 hr 11/24/24 11/24/24 11/24/24 11:30 15:32 16:46 WBC RBC Hgb Hct MCV MCH MCHC RDW Plt Count MPV PT INR POC Capillary Glucose 315 H 358 H 360 H Magnesium 11/24/24 11/25/24 11/25/24 20:30 04:30 07:52 WBC 7.1 RBC 3.94 L Hgb 11.9 L Hct 36.0 L MCV 91.4 MCH 30.2 MCHC 33.1 RDW 13.6 Plt Count 167 MPV 11.1 H PT 25.7 H INR 2.3 POC Capillary Glucose 341 H 223 H Magnesium 1.7
[2024-11-25 11:53] LABS: Glucose Point of Care 159 mg/dl (65-105)
[2024-11-25] MEDS: ERGOCALCIFEROL 50,000 UNITS CAPSULE 50000 UNITS PO (12:25)
[2024-11-25] MEDS: COLCHICINE 0.6 MG TABLET PO (12:26)
[2024-11-25 16:42] LABS: Glucose Point of Care 124 mg/dl (65-105)
[2024-11-25 21:08] LABS: Glucose Point of Care 305 mg/dl (65-105)
[2024-11-25] MEDS: FAMOTIDINE 20 MG TABLET 40 MG PO (21:22)
[2024-11-25] MEDS: amLODIPine BESYLATE 10 MG TABLET PO (21:22)
[2024-11-25] MEDS: INSULIN ASPART (*BKC) 100 UNITS/ML SUB-Q (21:23)
[2024-11-25] MEDS: AZITHROMYCIN 500 MG/NS 250 ML 500 MG/250 ML BAG 250 MG IVPB (21:27)
[2024-11-25] MEDS: INSULIN HUMAN NPH (*BKC) 100 UNITS/ML 30 UNITS SUB-Q (21:34)
[2024-11-25] MEDS: guaiFENesin/DEXTROMETHORPHAN 10 ML UDC PO (23:44)
[2024-11-25] MEDS: ALBUTEROL SULFATE (*SP) AEROSOL 1 PUFF 2 PUFF INHALATION (23:50)
[2024-11-26] VITALS (13 sets, daily range): BP systolic 115–135; BP diastolic 66–81; PULSE 18–100; RESP 16–78; TEMP 36.3–36.8; O2SAT 94–99
[2024-11-26] MEDS: ALPRAZolam (*CRX) 0.25 MG TABLET PO (01:16)
[2024-11-26 05:17] LABS: Basophils Percent Auto 0.1 % (0.2-1.2); Eosinophils Absolute Auto 0.3 K/mm3 (0-0.3); Eosinophils Percent Auto 4.1 % (0-4.4); Hematocrit 36.7 % (42.0-52.0); Immature Granulocyte Absolute 0.09 K/mm3 (0.00-0.031); Immature Granulocyte Percent A 1.2 % (0-0.5); Lymphocytes Absolute Auto 1.25 K/mm3 (0.9-3.2); Lymphocytes Percent Auto 16.6 % (18.3-44.2); Mean Corpuscular HGB Conc 32.7 g/dl (32-36); Mean Corpuscular Hemoglobin 29.6 pg (26-34); Mean Corpuscular Volume 90.6 fl (80-100); Mean Platelet Volume 10.5 fl (7.4-10.4); Monocytes Absolute Auto 0.9 K/mm3 (0.1-0.6); Monocytes Percent Auto 12.1 % (2.6-8.5); Neutrophils Percent Auto 65.9 % (45.5-73.1); Platelet Count Result 181 k/mm3 (150-375); Red Blood Count 4.05 M/mm3 (4.6-6.20); Red Cell Distribution Width 13.7 % (11.5-14.5); White Blood Count 7.5 K/mm3 (4.5-10.0)
[2024-11-26 05:31] LABS: Alanine Aminotransferase 28 U/L (6-50); Albumin Level 3.3 g/dL (3.5-5.1); Alkaline Phosphatase 73 U/L (38-126); Anion Gap 14 mmol/L (4-12); Aspartate Amino Transferase 25 U/L (17-59); Bilirubin,Total 0.7 mg/dL (0.2-1.3); Blood Urea Nitrogen 68 mg/dL (9-20); Calcium 8.4 mg/dL (8.4-10.2); Carbon Dioxide 26 mmol/L (22-30); Chloride 93 mmol/L (98-107); Estimated CRCL calculation 13 ml/min; Estimated Glomerular Filt Rate 7; Glucose 112 mg/dL (65-110); Magnesium 1.7 mg/dL (1.6-2.3); Sodium 133 mmol/L (137-145)
[2024-11-26 05:33] LABS: INR 1.7; Prothrombin Time 20.2 Seconds (11.1-14.7)
[2024-11-26 06:11] LABS: Glucose Point of Care 77 mg/dl (65-105)
[2024-11-26] MEDS: LEVOTHYROXINE SODIUM 25 MCG TABLET PO (06:11)
[2024-11-26] MEDS: ALBUTEROL SULFATE (*SP) AEROSOL 1 PUFF 2 PUFF INHALATION ×2 (06:26→21:05)
[2024-11-26] MEDS: DEXTROSE 50% 25 GM/50 ML SYRINGE IV PUSH (06:28)
[2024-11-26 06:29] LABS: Glucose Point of Care 63 mg/dl (65-105)
[2024-11-26 06:43] LABS: Glucose Point of Care 134 mg/dl (65-105)
[2024-11-26] MEDS: DEXTROSE 5%/0.9% SOD CHL 1,000 ML 75 ML IV CONT (06:46)
[2024-11-26 08:41] LABS: Glucose Point of Care 78 mg/dl (65-105)
--- NOTE | 2024-11-26 10:45 | PM.PNNEP ---
Progress Note: A&P Assessment and Plan (1) End stage renal disease: Code(s): N18.6 - End stage renal disease Status: Chronic Assessment and Plan: continue nightly peritoneal dialysis treatments follow electrolytes, volume status and clearance primary coupon clerk = Dr Sharath Reyes outpatient dialysis unit = [facility] (2) Pneumonia: Code(s): J18.9 - Pneumonia, unspecified organism Status: Acute Assessment and Plan: presumed to contributing to shortness of breath on antibiotics follow culture data (3) Pleural effusion, left: Code(s): J90 - Pleural effusion, not elsewhere classified Status: Acute Assessment and Plan: possibly parapenumonic... plan thoracentesis once INR acceptable -- later today? suspect contributing to shortness of breath as well (4) Right flank pain: Code(s): R10.9 - Unspecified abdominal pain Status: Acute Assessment and Plan: noted on admission with radiation to groin admission CT showed mild right hydronephrosis with ureteral stranding and inflammatory changes the urinary bladder which may represent cystitis with ascending infection suspect he may have passed a kindey stone continue supportive therapy (5) Hypertension: Code(s): I10 - Essential (primary) hypertension Status: Chronic Assessment and Plan: reasonable control at this time follow trend of hemodynamics (6) Anemia: Code(s): D64.9 - Anemia, unspecified Status: Chronic Assessment and Plan: due to ESRD H/H at goal if not supratherapeutic resume CORRINE if Hgb < 10 (7) Obstructive sleep apnea: Code(s): G47.33 - Obstructive sleep apnea (adult) (pediatric) Status: Chronic Assessment and Plan: continue nightly CPAP use (8) Type 1 diabetes mellitus with hyperglycemia: Code(s): E10.65 - Type 1 diabetes mellitus with hyperglycemia Status: Acute Assessment and Plan: follow accu-cheks glycemic control per hospitalist Will continue to follow. Subjective Date/time seen: 11/26/24 10:45 Interval history: Follow-up for end stage renal disease on peritoneal dialysis. Tolerated peritoneal dialysis treatment without any issues overnight; still has on/of shortness of breath but seems more prominent in the evening; noted plans for possible thoracentesis later today; no other acute events earlier this morning. Exam Narrative: General: WD/WN male in NAD Heart: normal S1 and S2; no rub Lungs: clear anteriorly, decreased at bases Abdomen: soft, nontender, nondistended, positive bowel sounds Extremities: no cyanosis or clubbing; trace - 1+ edema (chronic) Skin: warm and intact Objective Data Vital Signs Vital Signs: Vital Signs Temp Pulse Resp BP Pulse Ox O2 Del Method O2 Flow Rate 11/26/24 10:44 97.8 F 18 L 78 H 117/66 Room Air 11/26/24 08:00 97.8 F 78 18 117/66 97 11/26/24 06:28 85 18 11/26/24 06:26 85 18 11/26/24 05:53 97.4 F L 99 20 115/73 96 11/26/24 02:38 88 95 CPAP 11/26/24 00:00 98.3 F 100 20 126/73 97 11/25/24 23:55 85 18 11/25/24 23:53 90 18 11/25/24 21:22 99 11/25/24 21:00 Room Air 11/25/24 20:58 97.6 F 99 20 144/80 H 100 11/25/24 17:33 0 Intake/Output Intake/Output: Intake & Output 11/23/24 11/24/24 11/25/24 11/26/24 23:59 23:59 23:59 23:59 Intake Total 6341 3648 3350 1756 Output Total 375 350 150 100 Balance 5966 3298 3200 1656 Meds/Results Medications: Active Medications Generic Name Dose Route Start Last Admin Trade Name Freq PRN Reason Stop Dose Admin Hydrocodone Bitart/Acetaminophen 1 tab 11/24/24 12:45 11/24/24 22:20 Hydrocodone/Acetaminophen (*Crx) 5-325 Mg Tablet PO 1 tab Q4H PRN Administration Pain Rated 4-6 Albuterol 2 puff 11/23/24 01:57 11/26/24 06:26 Albuterol Sulfate (*Sp) Aerosol 1 Puff INHALATION 2 puff QID PRN Administration shortness of breath or wheezing Alprazolam 0.25 mg 11/25/24 12:45 11/26/24 01:16 Alprazolam (*Crx) 0.25 Mg Tablet PO 0.25 mg Q8HR PRN Administration Anxiety Amlodipine Besylate 10 mg 11/23/24 21:00 11/25/24 21:22 Amlodipine Besylate 10 Mg Tablet PO 10 mg HS [facility] Administration Amoxicillin/Clavulanate Potassium 1 tablet 11/26/24 21:00 Amoxicillin/Clavulanate K 500-125 Mg Tab PO 11/29/24 09:01 Q12HR ASHLEY Aspirin 81 mg 11/23/24 09:00 11/25/24 10:11 Aspirin 81 Mg Enteric Tablet PO 81 mg QAM ASHLEY Administration Atorvastatin Calcium 80 mg 11/23/24 09:00 11/25/24 10:06 Atorvastatin 40 Mg Tablet PO 80 mg DAILY ASHLEY Administration Calcitriol 0.25 mcg 11/23/24 09:00 11/25/24 10:06 Calcitriol 0.25 Mcg Capsule PO 0.25 mcg QAM [facility] Administration Calcium Acetate 667 mg 11/23/24 09:00 11/26/24 10:13 Calcium Acetate 667 Mg Tablet PO Not Given QID [facility] Colchicine 0.6 mg 11/25/24 09:00 11/25/24 12:26 Colchicine 0.6 Mg Tablet PO 0.6 mg MoWeFr@0900 ASHLEY Administration Cyclobenzaprine HCl 5 mg 11/23/24 01:57 11/23/24 16:25 Cyclobenzaprine Hcl 5 Mg Tablet PO 5 mg TID PRN Administration muscle spasm Dextrose 12.5 gm 11/22/24 20:30 11/26/24 06:28 Dextrose 50% 25 Gm/50 Ml Syringe IV PUSH 12.5 gm PRN PRN Administration Hypoglycemia Protocol Doxycycline Hyclate 100 mg 11/26/24 21:00 Doxycycline Hyclate 100 Mg Tablet PO 11/27/24 09:01 Q12HR [facility] Ezetimibe 10 mg 11/23/24 09:00 11/25/24 10:05 Ezetimibe 10 Mg Tablet PO 10 mg DAILY ASHLEY Administration Enoxaparin Sodium 120 mg 11/26/24 17:15 Enoxaparin 120 Mg/0.8 Ml Syringe SUB-Q 11/26/24 17:16 ONCE ONE Ergocalciferol 50,000 units 11/25/24 09:00 11/25/24 12:25 Ergocalciferol 50,000 Units Capsule PO 50,000 units Mo@0900 ASHLEY Administration Famotidine 40 mg 11/23/24 21:00 11/25/24 21:22 Famotidine 20 Mg Tablet PO 40 mg HS ASHLEY Administration Fish Oil 1 gm 11/23/24 09:00 11/25/24 21:22 [place] 3 Polyunsat Fatty Acids 1 Gm Cap PO 1 gm QID ASHLEY Administration Gentamicin Sulfate 1 applic 11/23/24 21:00 11/25/24 21:28 Gentamicin Sulfate 0.1% Cr 15 Gm Tube TOPICAL Not Given HS ASHLEY Guaifenesin/Dextromethorphan 10 ml 11/22/24 23:50 11/25/24 23:44 Guaifenesin/Dextromethorphan 10 Ml Udc PO 10 ml BID PRN Administration Cough Dextrose 1,000 mls @ 100 mls/hr 11/22/24 20:30 Dextrose 5% 1,000 Ml IVPB PRN PRN Hypoglycemia Protocol Dextrose 1,000 mls @ 100 mls/hr 11/26/24 11:20 11/26/24 11:55 Dextrose 5% 1,000 Ml IV CONT 100 mls/hr .Q10H ASHLEY Administration Insulin Aspart 2 - 5 units 11/23/24 08:00 11/26/24 10:13 Insulin Aspart (*Bkc) 100 Units/Ml SUB-Q Not Given TIDWM [facility] Protocol Insulin Aspart 1 - 2 units 11/22/24 21:00 11/25/24 21:23 Insulin Aspart (*Bkc) 100 Units/Ml SUB-Q 2 units HS [facility] Administration Protocol Insulin Aspart 12 units 11/23/24 11:30 11/26/24 06:09 Insulin Aspart (*Bkc) 100 Units/Ml SUB-Q Not Given TIDAC [facility] Insulin Glargine 40 units 11/23/24 11:15 11/26/24 10:14 Insulin Glargine (*Bkc) 100 Units/Ml SUB-Q Not Given DAILY@0900 [facility] Insulin Human NPH 30 units 11/23/24 21:00 11/25/24 21:34 Insulin Human Nph (*Bkc) 100 Units/Ml SUB-Q 30 units HS ASHLEY Administration Levothyroxine Sodium 25 mcg 11/23/24 06:30 11/26/24 06:11 Levothyroxine Sodium 25 Mcg Tablet PO 25 mcg DAILY@0630 ASHLEY Administration Lidocaine 1 patch 11/23/24 09:00 11/25/24 12:40 Lidocaine 5% Patch TRANSDERM Not Given DAILY [facility] Linaclotide 72 mcg 11/23/24 01:57 Linaclotide 72 Mcg Capsule PO DAILY PRN Diarrhea Loratadine 10 mg 11/23/24 09:00 11/25/24 10:05 Loratadine 10 Mg Tablet PO 10 mg QAM [facility] Administration Metoprolol Tartrate 50 mg 11/22/24 23:40 11/25/24 21:22 Metoprolol Tartrate 50 Mg Tab PO 50 mg Q12HR [facility] Administration Morphine Sulfate 2 mg 11/23/24 17:27 11/24/24 08:09 Morphine Sulfate (*Crx) 2 Mg/Ml Inj IV PUSH 2 mg Q4H PRN Administration Pain Rated 7-10 Nitroglycerin 0.4 mg 11/23/24 09:23 Nitroglycerin Sl 0.4 Mg Tablet SUBLINGUAL Q5MIN PRN Chest Pain Pantoprazole Sodium 40 mg 11/23/24 09:00 11/25/24 10:06 Pantoprazole 40 Mg Tablet PO 40 mg QAM [facility] Administration Potassium Chloride 20 meq 11/23/24 08:00 11/25/24 10:06 Potassium Chloride 20 Meq Er Tablet PO 20 meq DAILY@0800 [facility] Administration Sevelamer Carbonate 800 mg 11/24/24 12:00 11/26/24 10:13 Sevelamer Carbonate 800 Mg Tablet PO Not Given TIDWM [facility] Tamsulosin HCl 0.4 mg 11/23/24 09:00 11/25/24 18:08 Tamsulosin Hcl 0.4 Mg Capsule PO 0.4 mg BID [facility] Administration Torsemide 100 mg 11/23/24 09:00 11/25/24 10:06 Torsemide 20 Mg Tablet PO 100 mg QAM [facility] Administration Warfarin Sodium 3 mg 11/23/24 17:00 Warfarin (*Pbkc) 3 Mg Tablet PO DAILY@1700 [facility] Radiology Results: ITS Impressions Chest X-Ray 11/22/24 19:16 IMPRESSION: Large left-sided pleural effusion, increased from 09/08/2024. Chest CT 11/22/24 19:18 IMPRESSION: Interval development of a left lower lobe infiltrate with increased left-sided pleural effusion, as detailed above. Redemonstration of mediastinal lymphadenopathy. Abdomen/Pelvis CT 11/23/24 20:48 IMPRESSION: Segmental left lower lobe atelectasis/consolidation. Large left pleural effusion. Cholelithiasis, without CT evidence of cholecystitis. Mild right hydronephrosis with ureteral stranding and inflammatory change of the urinary bladder, findings may represent cystitis with ascending infection. Inflamed fat-containing umbilical hernia. Moderate body wall edema. Abdomen X-Ray 11/24/24 13:45 IMPRESSION: NO ACUTE ABDOMINAL FINDINGS. No definite stones seen. Noncontrast CT is better for evaluation. Labs Labs: Laboratory Tests 11/26/24 04:36 11/26/24 04:36 PT 20.2 H D INR 1.7 Calcium 8.4 Magnesium 1.7 Total Bilirubin 0.7 AST 25 ALT 28 Alkaline Phosphatase 73 Total Protein 6.0 L Albumin 3.3 L
[2024-11-26] MEDS: DEXTROSE 5% 1,000 ML 1,000 ML 100 ML IV CONT (11:55)
--- NOTE | 2024-11-26 12:16 | P.PNIM_ITS ---
Progress Note: A&P Assessment and Plan (1) Pleural effusion, left: Code(s): J90 - Pleural effusion, not elsewhere classified Status: Acute (2) Pneumonia: Code(s): J18.9 - Pneumonia, unspecified organism Status: Acute Plan This is a pleasant 54-year-old male with an extensive medical history including CAD status post CABG, peritoneal dialysis, obesity, insulin-dependent diabetes mellitus, atrial fibrillation, mechanical aortic valve replacement on warfarin, who presents to [facility] ER with complaint of shortness of breath worsening for 6 days. It is worse with exertion and he is now on able to lie flat. Admits to cough which is productive of clear sputum. Denies leg swelling, fever, chest pain. He has been compliant with all of his medications and peritoneal dialysis. ER workup revealed atrial fibrillation in the 110s, blood pressure 133/85, saturating well on room air, respiratory rate 16. INR 2.7, sodium 131, BUN 55, serum creatinine 7.41, glucose 272, troponin 0.247, BNP [address]. Chest CT demonstrated a large left-sided pleural effusion with interval enlargement along with left lower lobe infiltrate. He received DuoNebs, Solu-Medrol, 1 L normal saline, ceftriaxone, azithromycin, Lasix. ----- Left pleural effusion could be parapneumonic. Thoracentesis has been planned.however cannot perform due to anticoagulant use. Warfarin held, need bridging anticoagulation. INR subtherapeutic at 1.7 today. Discussed with IR will be able to do thoracentesis. Will start bridging Lovenox in the evening. Will be able to resume warfarin as well. Left-sided pneumonia with left-sided pleural effusion: Ceftriaxone and azithromycin scheduled for pneumonia. Thoracentesis ordered which will be planned today. Allowing warfarin to drift off. Start bridging Lovenox when INR less than 2 Elevated troponin with flat trend. Right flank pain that radiated to groin 11/23/2024: CT showed mild right hydronephrosis with ureteral stranding and inflammatory changes the urinary bladder which may represent cystitis with ascending infection. Likely passed some stone. Urology follow-up as an outpatient basis. This pain has resolved now. Inflammatory change around umbilical hernia clinically nontender in this area likely chronic finding End-stage renal disease on peritoneal dialysis nephrology consulted. DVT prophylaxis SCDs. Code status Full code. Diet Renal diabetic diet. Accu-Cheks. CAD status post CABG History of popliteal DVT Congestive heart failure combined systolic diastolic Hypertension Hyperlipidemia BEN not consistently on CPAP Paroxysmal Atrial fibrillation History of mechanical aortic valve replacement on warfarin Hypothyroidism Cholelithiasis Subjective Date/time seen: 11/26/24 12:16 Interval history: Overnight his blood sugar trended low. Needed to start on D5 water. INR low at 1.7. Radiology can do the thoracentesis today. Will bridge with Lovenox until INR back up again after the thoracentesis. Warfarin held Review of Systems Review of Systems: All systems reviewed & are unremarkable except as noted in HPI and below (HPI) Exam Narrative: GENERAL: Well appearing, well-nourished, non-toxic, in no acute distress. HEAD: Normocephalic, atraumatic. NECK: Supple. No adenopathy, no masses. RESPIRATORY: Airway patent, respirations nonlabored. Crackles to auscultation left. CARDIOVASCULAR: Regular rate and rhythm without murmurs, rubs, or gallops. Peripheral pulses 2+ and equal bilaterally. ABDOMINAL: Soft, nontender, nondistended, no hepatosplenomegaly. Normoactive BS. MUSCULOSKELETAL: Moves all extremities. Strength/ROM intact without gross deformities. SKIN: Warm, dry, normal color. No rashes. NEURO: A&O X3. Speech clear. Cranial nerves II-XII intact. No ataxic movements. PSYCHIATRIC: Appropriate mood and affect. Normal interaction. Objective Data Vital Signs Vital Signs: Vital Signs - 24 hr 11/25/24 17:33 11/25/24 20:58 11/25/24 21:00 Temperature 97.6 F Pulse Rate 99 Respiratory Rate 20 Blood Pressure 144/80 H Pulse Oximetry 100 Oxygen Delivery Room Air Oxygen Flow Rate 0 11/25/24 21:22 11/25/24 23:53 11/25/24 23:55 Temperature Pulse Rate 99 90 85 Respiratory Rate 18 18 Blood Pressure Pulse Oximetry Oxygen Delivery Oxygen Flow Rate 11/26/24 00:00 11/26/24 02:38 11/26/24 05:53 Temperature 98.3 F 97.4 F L Pulse Rate 100 88 99 Respiratory Rate 20 20 Blood Pressure 126/73 115/73 Pulse Oximetry 97 95 96 Oxygen Delivery CPAP Oxygen Flow Rate 11/26/24 06:26 11/26/24 06:28 11/26/24 08:00 Temperature 97.8 F Pulse Rate 85 85 78 Respiratory Rate 18 18 18 Blood Pressure 117/66 Pulse Oximetry 97 Oxygen Delivery Oxygen Flow Rate 11/26/24 10:00 11/26/24 11:54 Temperature 97.8 F Pulse Rate 18 L Respiratory Rate 78 H Blood Pressure 117/66 Pulse Oximetry Oxygen Delivery Room Air Oxygen Flow Rate Intake/Output Intake/Output: Intake & Output 11/23/24 11/24/24 11/25/24 11/26/24 23:59 23:59 23:59 23:59 Intake Total 6341 3640 3350 1756 Output Total 375 350 150 100 Balance 5966 3298 1020 1656 Meds/Results Medications: Active Medications Generic Name Dose Route Start Last Admin Trade Name Freq PRN Reason Stop Dose Admin Hydrocodone Bitart/Acetaminophen 1 tab 11/24/24 12:45 11/24/24 22:20 Hydrocodone/Acetaminophen (*Crx) 5-325 Mg Tablet PO 1 tab Q4H PRN Administration Pain Rated 4-6 Albuterol 2 puff 11/23/24 01:57 11/26/24 06:26 Albuterol Sulfate (*Sp) Aerosol 1 Puff INHALATION 2 puff QID PRN Administration shortness of breath or wheezing Alprazolam 0.25 mg 11/25/24 12:45 11/26/24 01:16 Alprazolam (*Crx) 0.25 Mg Tablet PO 0.25 mg Q8HR PRN Administration Anxiety Amlodipine Besylate 10 mg 11/23/24 21:00 11/25/24 21:22 Amlodipine Besylate 10 Mg Tablet PO 10 mg HS ASHLEY Administration Aspirin 81 mg 11/23/24 09:00 11/25/24 10:11 Aspirin 81 Mg Enteric Tablet PO 81 mg QAM ASHLEY Administration Atorvastatin Calcium 80 mg 11/23/24 09:00 11/25/24 10:06 Atorvastatin 40 Mg Tablet PO 80 mg DAILY ASHLEY Administration Calcitriol 0.25 mcg 11/23/24 09:00 11/25/24 10:06 Calcitriol 0.25 Mcg Capsule PO 0.25 mcg QAM ASHLEY Administration Calcium Acetate 667 mg 11/23/24 09:00 11/26/24 10:13 Calcium Acetate 667 Mg Tablet PO Not Given QID ASHLEY Colchicine 0.6 mg 11/25/24 09:00 11/25/24 12:26 Colchicine 0.6 Mg Tablet PO 0.6 mg [id number]@0900 ASHLEY Administration Cyclobenzaprine HCl 5 mg 11/23/24 01:57 11/23/24 16:25 Cyclobenzaprine Hcl 5 Mg Tablet PO 5 mg TID PRN Administration muscle spasm Dextrose 12.5 gm 11/22/24 20:30 11/26/24 06:28 Dextrose 50% 25 Gm/50 Ml Syringe IV PUSH 12.5 gm PRN PRN Administration Hypoglycemia Protocol Ezetimibe 10 mg 11/23/24 09:00 11/25/24 10:05 Ezetimibe 10 Mg Tablet PO 10 mg DAILY ASHLEY Administration Ergocalciferol 50,000 units 11/25/24 09:00 11/25/24 12:25 Ergocalciferol 50,000 Units Capsule PO 50,000 units Mo@0900 ASHLEY Administration Famotidine 40 mg 11/23/24 21:00 11/25/24 21:22 Famotidine 20 Mg Tablet PO 40 mg HS ASHLEY Administration Fish Oil 1 gm 11/23/24 09:00 11/25/24 21:22 [place] 3 Polyunsat Fatty Acids 1 Gm Cap PO 1 gm QID ASHLEY Administration Gentamicin Sulfate 1 applic 11/23/24 21:00 11/25/24 21:28 Gentamicin Sulfate 0.1% Cr 15 Gm Tube TOPICAL Not Given HS ASHLEY Guaifenesin/Dextromethorphan 10 ml 11/22/24 23:50 11/25/24 23:44 Guaifenesin/Dextromethorphan 10 Ml Udc PO 10 ml BID PRN Administration Cough Dextrose 1,000 mls @ 100 mls/hr 11/22/24 20:30 Dextrose 5% 1,000 Ml IVPB PRN PRN Hypoglycemia Protocol Ceftriaxone Sodium 1 gm in 50 mls @ 100 mls/hr 11/23/24 20:00 11/25/24 21:13 Rocephin 1 Gm/Ns 50 Ml IVPB Infused Q24H ASHLEY Infusion Azithromycin 500 mg in 250 mls @ 250 mls/hr 11/23/24 21:00 11/25/24 22:27 Zithromax IVPB Infused Q24H ASHLEY Infusion Dextrose 1,000 mls @ 100 mls/hr 11/26/24 11:20 11/26/24 11:55 Dextrose 5% 1,000 Ml IV CONT 100 mls/hr .Q10H ASHLEY Administration Insulin Aspart 2 - 5 units 11/23/24 08:00 11/26/24 10:13 Insulin Aspart (*Bkc) 100 Units/Ml SUB-Q Not Given TIDWM [facility] Protocol Insulin Aspart 1 - 2 units 11/22/24 21:00 11/25/24 21:23 Insulin Aspart (*Bkc) 100 Units/Ml SUB-Q 2 units HS [facility] Administration Protocol Insulin Aspart 12 units 11/23/24 11:30 11/26/24 06:09 Insulin Aspart (*Bkc) 100 Units/Ml SUB-Q Not Given TIDAC [facility] Insulin Glargine 40 units 11/23/24 11:15 11/26/24 10:14 Insulin Glargine (*Bkc) 100 Units/Ml SUB-Q Not Given DAILY@0900 [facility] Insulin Human NPH 30 units 11/23/24 21:00 11/25/24 21:34 Insulin Human Nph (*Bkc) 100 Units/Ml SUB-Q 30 units HS [facility] Administration Levothyroxine Sodium 25 mcg 11/23/24 06:30 11/26/24 06:11 Levothyroxine Sodium 25 Mcg Tablet PO 25 mcg DAILY@0630 [facility] Administration Lidocaine 1 patch 11/23/24 09:00 11/25/24 12:40 Lidocaine 5% Patch TRANSDERM Not Given DAILY [facility] Linaclotide 72 mcg 11/23/24 01:57 Linaclotide 72 Mcg Capsule PO DAILY PRN Diarrhea Loratadine 10 mg 11/23/24 09:00 11/25/24 10:05 Loratadine 10 Mg Tablet PO 10 mg QAM [facility] Administration Metoprolol Tartrate 50 mg 11/22/24 23:40 11/25/24 21:22 Metoprolol Tartrate 50 Mg Tab PO 50 mg Q12HR ASHLEY Administration Morphine Sulfate 2 mg 11/23/24 17:27 11/24/24 08:09 Morphine Sulfate (*Crx) 2 Mg/Ml Inj IV PUSH 2 mg Q4H PRN Administration Pain Rated 7-10 Nitroglycerin 0.4 mg 11/23/24 09:23 Nitroglycerin Sl 0.4 Mg Tablet SUBLINGUAL Q5MIN PRN Chest Pain Pantoprazole Sodium 40 mg 11/23/24 09:00 11/25/24 10:06 Pantoprazole 40 Mg Tablet PO 40 mg QAM [facility] Administration Potassium Chloride 20 meq 11/23/24 08:00 11/25/24 10:06 Potassium Chloride 20 Meq Er Tablet PO 20 meq DAILY@0800 [facility] Administration Sevelamer Carbonate 800 mg 11/24/24 12:00 11/26/24 10:13 Sevelamer Carbonate 800 Mg Tablet PO Not Given TIDWM [facility] Tamsulosin HCl 0.4 mg 11/23/24 09:00 11/25/24 18:08 Tamsulosin Hcl 0.4 Mg Capsule PO 0.4 mg BID ASHLEY Administration Torsemide 100 mg 11/23/24 09:00 11/25/24 10:06 Torsemide 20 Mg Tablet PO 100 mg QAM [facility] Administration Warfarin Sodium 3 mg 11/23/24 17:00 Warfarin (*Pbkc) 3 Mg Tablet PO DAILY@1700 [facility] Radiology Results: ITS Impressions Chest X-Ray 11/22/24 19:16 IMPRESSION: Large left-sided pleural effusion, increased from 09/08/2024. Chest CT 11/22/24 19:18 IMPRESSION: Interval development of a left lower lobe infiltrate with increased left-sided pleural effusion, as detailed above. Redemonstration of mediastinal lymphadenopathy. Abdomen/Pelvis CT 11/23/24 20:48 IMPRESSION: Segmental left lower lobe atelectasis/consolidation. Large left pleural effusion. Cholelithiasis, without CT evidence of cholecystitis. Mild right hydronephrosis with ureteral stranding and inflammatory change of the urinary bladder, findings may represent cystitis with ascending infection. Inflamed fat-containing umbilical hernia. Moderate body wall edema. Abdomen X-Ray 11/24/24 13:45 IMPRESSION: NO ACUTE ABDOMINAL FINDINGS. No definite stones seen. Noncontrast CT is better for evaluation. Labs Labs: Laboratory Results - last 24 hr 11/25/24 11/25/24 11/26/24 16:37 20:57 04:36 WBC 7.5 RBC 4.05 L Hgb 12.0 L Hct 36.7 L MCV 90.6 MCH 29.6 MCHC 32.7 RDW 13.7 Plt Count 181 MPV 10.5 H Immature Gran % (Auto) 1.2 H Neut % (Auto) 65.9 Lymph % (Auto) 16.6 L [place] % (Auto) 12.1 H Eos % (Auto) 4.1 Baso % (Auto) 0.1 L Lymph # (Auto) 1.25 [place] # (Auto) 0.9 H Eos # (Auto) 0.3 Baso # (Auto) 0.0 Abs Immat Gran (auto) 0.09 H Absolute Neuts (auto) 5.0 Absolute Nucleated RBC 0.000 Nucleated RBC % 0.0 PT 20.2 H D INR 1.7 Sodium 133 L Potassium 4.0 Chloride 93 L Carbon Dioxide 26 Anion Gap 14 H BUN 68 H Creatinine 7.67 H Estim Creat Clear Calc 13 Estimated GFR 7 L Glucose 112 H POC Capillary Glucose 124 H 305 H Calcium 8.4 Magnesium 1.7 Total Bilirubin 0.7 AST 25 ALT 28 Alkaline Phosphatase 73 Total Protein 6.0 L Albumin 3.3 L 11/26/24 11/26/24 11/26/24 06:07 06:25 06:41 WBC RBC Hgb Hct MCV MCH MCHC RDW Plt Count MPV Immature Gran % (Auto) Neut % (Auto) Lymph % (Auto) [place] % (Auto) Eos % (Auto) Baso % (Auto) Lymph # (Auto) [place] # (Auto) Eos # (Auto) Baso # (Auto) Abs Immat Gran (auto) Absolute Neuts (auto) Absolute Nucleated RBC Nucleated RBC % PT INR Sodium Potassium Chloride Carbon Dioxide Anion Gap BUN Creatinine Estim Creat Clear Calc Estimated GFR Glucose POC Capillary Glucose 77 63 L 134 H Calcium Magnesium Total Bilirubin AST ALT Alkaline Phosphatase Total Protein Albumin 11/26/24 08:27 WBC RBC Hgb Hct MCV MCH MCHC RDW Plt Count MPV Immature Gran % (Auto) Neut % (Auto) Lymph % (Auto) [place] % (Auto) Eos % (Auto) Baso % (Auto) Lymph # (Auto) [place] # (Auto) Eos # (Auto) Baso # (Auto) Abs Immat Gran (auto) Absolute Neuts (auto) Absolute Nucleated RBC Nucleated RBC % PT INR Sodium Potassium Chloride Carbon Dioxide Anion Gap BUN Creatinine Estim Creat Clear Calc Estimated GFR Glucose POC Capillary Glucose 78 Calcium Magnesium Total Bilirubin AST ALT Alkaline Phosphatase Total Protein Albumin
[2024-11-26 13:46] LABS: Glucose Point of Care 63 mg/dl (65-105)
[2024-11-26 16:18] LABS: pH Pleural Fluid 7.488 (7.210-7.500)
[2024-11-26 17:10] LABS: Appearance Pleural Fluid Bloody (Clear); Color Pleural Fluid Red (Colorless); Pleural fluid source Pleural fluid
[2024-11-26 17:11] LABS: Nucleated Cell Pleural Fluid 649 /uL (0-1000)
[2024-11-26 17:12] LABS: Lymphocytes Pleural Fluid 91 %; Macrophages Pleural Fluid 8 %; Mesothelial Cells Pleural Flui 1 %; Neutrophils Pleural Fluid 0 % (0-25); RBC Pleural Fluid 21000 /uL (0-10000)
[2024-11-26 17:20] LABS: Glucose Point of Care 94 mg/dl (65-105)
[2024-11-26] MEDS: SEVELAMER CARBONATE 800 MG TABLET PO (17:36)
[2024-11-26] MEDS: OMEGA 3 POLYUNSAT FATTY ACIDS 1 GM CAP PO ×2 (17:36→20:40)
[2024-11-26] MEDS: TAMSULOSIN HCL 0.4 MG CAPSULE PO (17:36)
[2024-11-26] MEDS: CALCIUM ACETATE 667 MG TABLET PO ×2 (17:36→20:40)
[2024-11-26] MEDS: WARFARIN (*PBKC) 3 MG TABLET PO (17:57)
[2024-11-26] MEDS: FAMOTIDINE 20 MG TABLET 40 MG PO (20:39)
[2024-11-26] MEDS: DOXYCYCLINE HYCLATE 100 MG TABLET PO (20:40)
[2024-11-26] MEDS: METOPROLOL TARTRATE 50 MG TAB PO (20:40)
[2024-11-26] MEDS: amLODIPine BESYLATE 10 MG TABLET PO (20:40)
[2024-11-26] MEDS: AMOXICILLIN/CLAVULANATE K 500-125 MG TAB 1 TABLET PO (20:41)
[2024-11-26] MEDS: guaiFENesin/DEXTROMETHORPHAN 10 ML UDC PO (20:47)
[2024-11-26 21:42] LABS: Glucose Point of Care 188 mg/dl (65-105)
[2024-11-26 21:50] LABS: Glucose Point of Care 288 mg/dl (65-105)
[2024-11-26 23:53] LABS: Glucose Point of Care 292 mg/dl (65-105)
[2024-11-27] VITALS (9 sets, daily range): BP systolic 111–127; BP diastolic 68–74; PULSE 88–116; RESP 16–20; TEMP 36.4–36.8; O2SAT 95–100
[2024-11-27 01:55] LABS: Glucose Point of Care 251 mg/dl (65-105)
[2024-11-27 04:09] LABS: Glucose Point of Care 205 mg/dl (65-105)
[2024-11-27 05:12] LABS: Basophils Percent Auto 0.5 % (0.2-1.2); Eosinophils Absolute Auto 0.3 K/mm3 (0-0.3); Eosinophils Percent Auto 4.6 % (0-4.4); Hematocrit 36.8 % (42.0-52.0); Hemoglobin 12.1 g/dL (14.0-18.0); Immature Granulocyte Absolute 0.09 K/mm3 (0.00-0.031); Immature Granulocyte Percent A 1.5 % (0-0.5); Lymphocytes Absolute Auto 1.19 K/mm3 (0.9-3.2); Lymphocytes Percent Auto 20.3 % (18.3-44.2); Mean Corpuscular HGB Conc 32.9 g/dl (32-36); Mean Corpuscular Hemoglobin 29.7 pg (26-34); Mean Corpuscular Volume 90.4 fl (80-100); Mean Platelet Volume 10.6 fl (7.4-10.4); Monocytes Absolute Auto 0.7 K/mm3 (0.1-0.6); Monocytes Percent Auto 12.1 % (2.6-8.5); Neutrophils Absolute Auto 3.6 K/mm3 (1.3-6.7); Platelet Count Result 171 k/mm3 (150-375); Red Blood Count 4.07 M/mm3 (4.6-6.20); Red Cell Distribution Width 13.7 % (11.5-14.5); White Blood Count 5.9 K/mm3 (4.5-10.0)
[2024-11-27 05:21] LABS: Alanine Aminotransferase 27 U/L (6-50); Albumin Level 3.1 g/dL (3.5-5.1); Alkaline Phosphatase 71 U/L (38-126); Anion Gap 13 mmol/L (4-12); Aspartate Amino Transferase 26 U/L (17-59); Bilirubin,Total 0.7 mg/dL (0.2-1.3); Blood Urea Nitrogen 70 mg/dL (9-20); Calcium 8.1 mg/dL (8.4-10.2); Carbon Dioxide 26 mmol/L (22-30); Chloride 92 mmol/L (98-107); Estimated CRCL calculation 13 ml/min; Estimated Glomerular Filt Rate 8; Glucose 214 mg/dL (65-110); Magnesium 1.7 mg/dL (1.6-2.3); Potassium 3.8 mmol/L (3.4-5.0); Sodium 131 mmol/L (137-145)
[2024-11-27 05:22] LABS: INR 1.4; Prothrombin Time 17.7 Seconds (11.1-14.7)
[2024-11-27 05:23] LABS: Partial Thromboplastin Time 28.3 Seconds (22.3-36.8)
[2024-11-27] MEDS: LEVOTHYROXINE SODIUM 25 MCG TABLET PO (05:53)
[2024-11-27 05:57] LABS: Glucose Point of Care 208 mg/dl (65-105)
[2024-11-27 08:10] LABS: Glucose Point of Care 191 mg/dl (65-105)
[2024-11-27] MEDS: AMOXICILLIN/CLAVULANATE K 500-125 MG TAB 1 TABLET PO ×2 (09:16→21:09)
[2024-11-27] MEDS: ATORVASTATIN 40 MG TABLET 80 MG PO (09:16)
[2024-11-27] MEDS: ASPIRIN 81 MG ENTERIC TABLET PO (09:17)
[2024-11-27] MEDS: COLCHICINE 0.6 MG TABLET PO (09:17)
[2024-11-27] MEDS: OMEGA 3 POLYUNSAT FATTY ACIDS 1 GM CAP PO ×4 (09:18→21:12)
[2024-11-27] MEDS: calcitrioL 0.25 MCG CAPSULE PO (09:18)
[2024-11-27] MEDS: METOPROLOL TARTRATE 50 MG TAB PO ×2 (09:19→21:13)
[2024-11-27] MEDS: PANTOPRAZOLE 40 MG TABLET PO (09:21)
[2024-11-27] MEDS: SEVELAMER CARBONATE 800 MG TABLET PO ×3 (09:22→16:48)
[2024-11-27] MEDS: LORATADINE 10 MG TABLET PO (09:22)
[2024-11-27] MEDS: DOXYCYCLINE HYCLATE 100 MG TABLET PO (09:24)
[2024-11-27] MEDS: CALCIUM ACETATE 667 MG TABLET PO ×4 (09:25→21:13)
[2024-11-27] MEDS: EZETIMIBE 10 MG TABLET PO (09:26)
[2024-11-27] MEDS: TAMSULOSIN HCL 0.4 MG CAPSULE PO ×2 (09:27→16:48)
[2024-11-27] MEDS: WARFARIN (*PBKC) 3 MG TABLET PO ×2 (09:27→16:49)
[2024-11-27] MEDS: TORSEMIDE 20 MG TABLET 100 MG PO (09:28)
[2024-11-27] MEDS: POTASSIUM CHLORIDE 20 MEQ ER TABLET PO (09:28)
[2024-11-27] MEDS: HEPARIN SOD/D5W 100 UNITS/ML 25,000 UNITS/250 ML BAG 15 UNITS IV CONT (09:59)
[2024-11-27] MEDS: HEPARIN SODIUM 5,000 UNITS/ML VIAL 7500 UNITS IV PUSH (10:00)
[2024-11-27] MEDS: INSULIN ASPART (*BKC) 100 UNITS/ML 8 UNITS SUB-Q ×3 (10:01→17:39)
--- NOTE | 2024-11-27 12:17 | PM.IMPN ---
Progress Note: A&P Assessment and Plan (1) Pleural effusion, left: Code(s): J90 - Pleural effusion, not elsewhere classified Status: Acute Assessment and Plan: Left pleural effusion could be parapneumonic. Thoracentesis has been planned.however cannot perform due to anticoagulant use. Warfarin held Thoracentesis performed 11/26. 21K RBC and 649 WBC almost all lymphocyts. Other studies pending. Probably related to PD INR subtherapeutic at 1.4 today. Will start bridging Heparin. Continue Warfarin Follow up on pleural studies and cultures (2) Pneumonia: Code(s): J18.9 - Pneumonia, unspecified organism Status: Acute Assessment and Plan: Left-sided pneumonia with left-sided pleural effusion: Ceftriaxone and azithromycin scheduled for pneumonia. Thoracentesis ordered as above. Changed to Doxycycline and Augmentin (3) End-stage renal disease on peritoneal dialysis: Code(s): N18.6 - End stage renal disease; Z99.2 - Dependence on renal dialysis Status: Acute Assessment and Plan: Nephrology consulted and appreciate their input. Renal diabetic diet. Continue PD to control fluid status. Plan Elevated troponin - Trop to 0.25 but flat. EKG showing AFlutter/tachycardia (HR 107) with Left BBB but no change from EKG in July. Echo in Aug 2024 showing EF 25%, and indeterminate diastolic function. Elevated Trop probably related to tachycardia associated with his low EF. [place] Type II TN from demand ischemia. CAD status post CABG (BRICE-LAD, SVG-OM, SVG to rPDA) in 09/2023 at [facility]. Continue Lopressor, Lipitor and ASA. Right flank pain - radiated to groin 11/23/2024. CT showed mild right hydronephrosis with ureteral stranding and inflammatory changes the urinary bladder which may represent cystitis with ascending infection. Likely passed some stone. Urology follow-up as an outpatient basis. This pain has resolved now. Inflammatory change around umbilical hernia clinically nontender in this area likely chronic finding Mechanical aortic valve (OnX) -dose warfarin to have INR goal of 1.5-2.5. As above. Paroxysmal Atrial fibrillation - rate better controlled. DVT prophylaxis SCDs. Code status Full code. Subjective Date/time seen: 11/27/24 12:17 Interval history: 54yo male with an extensive medical history including CAD status post CABG, peritoneal dialysis, obesity, insulin-dependent diabetes mellitus, atrial fibrillation, mechanical aortic valve replacement on warfarin, who presents to [place] ER with complaint of shortness of breath worsening for 6 days. Assuming care. Chart reviewed. No problems overnight. Feels much better. Denies chest pain or shortness of breath. No nausea or vomiting. His glucose was low yesterday and his insulin regimen was cut back. Some of this was related to his being NPO. Exam Narrative: AF 97.8 124/68 96 20 98% ra Gen - NARD Chest -left greater than right bibasilar crackles. CV -irregularly irregular. Abd -soft. Obese. Nontender. Left lower quadrant PD catheter noted. Ext -trace pedal edema Neuro - Alert and appropriate Psych - Nml mood and affect Skin - Warm and dry Objective Data Vital Signs Vital Signs: Vital Signs - 24 hr 11/26/24 16:00 11/26/24 20:00 11/26/24 20:37 Temperature 97.9 F 97.3 F L Pulse Rate 86 89 Respiratory Rate 18 16 Blood Pressure 123/71 135/81 Pulse Oximetry 94 98 Oxygen Delivery Room Air 11/26/24 20:40 11/26/24 21:05 11/26/24 21:05 Temperature Pulse Rate 88 100 Respiratory Rate 20 Blood Pressure Pulse Oximetry 96 Oxygen Delivery Room Air 11/26/24 21:37 11/26/24 22:55 11/27/24 02:34 Temperature 97.5 F L Pulse Rate 88 92 Respiratory Rate 20 Blood Pressure 123/76 Pulse Oximetry 99 96 Oxygen Delivery CPAP CPAP 11/27/24 03:48 11/27/24 07:30 11/27/24 08:00 Temperature 97.9 F 97.9 F 97.8 F Pulse Rate 91 91 89 Respiratory Rate 20 20 20 Blood Pressure 126/73 126/73 124/68 Pulse Oximetry 99 98 Oxygen Delivery 11/27/24 09:19 11/27/24 09:50 Temperature Pulse Rate 96 Respiratory Rate Blood Pressure Pulse Oximetry Oxygen Delivery Room Air Intake/Output Intake/Output: Intake & Output 11/24/24 11/25/24 11/26/24 11/27/24 23:59 23:59 23:59 23:59 Intake Total 3648 3350 2332.7 2145 Output Total 350 150 900 300 Balance 3298 3200 1432.7 1845 Meds/Results Medications: Active Medications Generic Name Dose Route Start Last Admin Trade Name Freq PRN Reason Stop Dose Admin Hydrocodone Bitart/Acetaminophen 1 tab 11/24/24 12:45 11/24/24 22:20 Hydrocodone/Acetaminophen (*Crx) 5-325 Mg Tablet PO 1 tab Q4H PRN Administration Pain Rated 4-6 Albuterol 2 puff 11/23/24 01:57 11/26/24 21:05 Albuterol Sulfate (*Sp) Aerosol 1 Puff INHALATION 2 puff QID PRN Administration shortness of breath or wheezing Alprazolam 0.25 mg 11/25/24 12:45 11/26/24 01:16 Alprazolam (*Crx) 0.25 Mg Tablet PO 0.25 mg Q8HR PRN Administration Anxiety Amlodipine Besylate 10 mg 11/23/24 21:00 11/26/24 20:40 Amlodipine Besylate 10 Mg Tablet PO 10 mg HS ASHLEY Administration Amoxicillin/Clavulanate Potassium 1 tablet 11/26/24 21:00 11/27/24 09:16 Amoxicillin/Clavulanate K 500-125 Mg Tab PO 11/29/24 09:01 1 tablet Q12HR ASHLEY Administration Aspirin 81 mg 11/23/24 09:00 11/27/24 09:17 Aspirin 81 Mg Enteric Tablet PO 81 mg QAM ASHLEY Administration Atorvastatin Calcium 80 mg 11/23/24 09:00 11/27/24 09:16 Atorvastatin 40 Mg Tablet PO 80 mg DAILY ASHLEY Administration Calcitriol 0.25 mcg 11/23/24 09:00 11/27/24 09:18 Calcitriol 0.25 Mcg Capsule PO 0.25 mcg QAM ASHLEY Administration Calcium Acetate 667 mg 11/23/24 09:00 11/27/24 09:25 Calcium Acetate 667 Mg Tablet PO 667 mg QID ASHLEY Administration Colchicine 0.6 mg 11/25/24 09:00 11/27/24 09:17 Colchicine 0.6 Mg Tablet PO 0.6 mg MoWeFr@0900 ASHLEY Administration Cyclobenzaprine HCl 5 mg 11/23/24 01:57 11/23/24 16:25 Cyclobenzaprine Hcl 5 Mg Tablet PO 5 mg TID PRN Administration muscle spasm Dextrose 12.5 gm 11/22/24 20:30 11/26/24 06:28 Dextrose 50% 25 Gm/50 Ml Syringe IV PUSH 12.5 gm PRN PRN Administration Hypoglycemia Protocol Ezetimibe 10 mg 11/23/24 09:00 11/27/24 09:26 Ezetimibe 10 Mg Tablet PO 10 mg DAILY ASHLEY Administration Ergocalciferol 50,000 units 11/25/24 09:00 11/25/24 12:25 Ergocalciferol 50,000 Units Capsule PO 50,000 units Mo@0900 ASHLEY Administration Famotidine 40 mg 11/23/24 21:00 11/26/24 20:39 Famotidine 20 Mg Tablet PO 40 mg HS ASHLEY Administration Fish Oil 1 gm 11/23/24 09:00 11/27/24 09:18 [place] 3 Polyunsat Fatty Acids 1 Gm Cap PO 1 gm QID ASHLEY Administration Gentamicin Sulfate 1 applic 11/23/24 21:00 11/26/24 19:56 Gentamicin Sulfate 0.1% Cr 15 Gm Tube TOPICAL Not Given HS ASHLEY Guaifenesin/Dextromethorphan 10 ml 11/22/24 23:50 11/26/24 20:47 Guaifenesin/Dextromethorphan 10 Ml Udc PO 10 ml BID PRN Administration Cough Heparin Sodium (Porcine) 7,500 units 11/27/24 07:19 Heparin Sodium 5,000 Units/Ml Vial IV PUSH PRN PRN aPTT less than 55 seconds Heparin Sodium (Porcine) 3,500 units 11/27/24 07:19 Heparin Sodium 5,000 Units/Ml Vial IV PUSH PRN PRN aPTT 55 - 70 seconds Dextrose 1,000 mls @ 100 mls/hr 11/22/24 20:30 Dextrose 5% 1,000 Ml IVPB PRN PRN Hypoglycemia Protocol Heparin Sodium/Dextrose 25,000 units in 250 mls @ 15 mls/hr 11/27/24 07:20 11/27/24 09:59 Heparin Sodium/D5w 100 Units/Ml IV CONT 1,500 units/hr .[id number] ASHLEY 15 mls/hr Administration Protocol 1,500 UNITS/HR Insulin Aspart 2 - 5 units 11/23/24 08:00 11/27/24 08:27 Insulin Aspart (*Bkc) 100 Units/Ml SUB-Q Not Given TIDWM [facility] Protocol Insulin Aspart 1 - 2 units 11/22/24 21:00 11/26/24 19:56 Insulin Aspart (*Bkc) 100 Units/Ml SUB-Q Not Given HS [facility] Protocol Insulin Aspart 8 units 11/27/24 09:40 11/27/24 10:01 Insulin Aspart (*Bkc) 100 Units/Ml SUB-Q 8 units TIDWM [facility] Administration Insulin Glargine 40 units 11/23/24 11:15 11/27/24 09:42 Insulin Glargine (*Bkc) 100 Units/Ml SUB-Q Not Given DAILY@0900 [facility] Insulin Human NPH 30 units 11/23/24 21:00 11/26/24 20:17 Insulin Human Nph (*Bkc) 100 Units/Ml SUB-Q Not Given [facility] Levothyroxine Sodium 25 mcg 11/23/24 06:30 11/27/24 05:53 Levothyroxine Sodium 25 Mcg Tablet PO 25 mcg DAILY@0630 [facility] Administration Lidocaine 1 patch 11/23/24 09:00 11/27/24 09:42 Lidocaine 5% Patch TRANSDERM Not Given DAILY [facility] Linaclotide 72 mcg 11/23/24 01:57 Linaclotide 72 Mcg Capsule PO DAILY PRN Diarrhea Loratadine 10 mg 11/23/24 09:00 11/27/24 09:22 Loratadine 10 Mg Tablet PO 10 mg QAM [facility] Administration Metoprolol Tartrate 50 mg 11/22/24 23:40 11/27/24 09:19 Metoprolol Tartrate 50 Mg Tab PO 50 mg Q12HR [facility] Administration Morphine Sulfate 2 mg 11/23/24 17:27 11/24/24 08:09 Morphine Sulfate (*Crx) 2 Mg/Ml Inj IV PUSH 2 mg Q4H PRN Administration Pain Rated 7-10 Nitroglycerin 0.4 mg 11/23/24 09:23 Nitroglycerin Sl 0.4 Mg Tablet SUBLINGUAL Q5MIN PRN Chest Pain Pantoprazole Sodium 40 mg 11/23/24 09:00 11/27/24 09:21 Pantoprazole 40 Mg Tablet PO 40 mg QAM [facility] Administration Potassium Chloride 20 meq 11/23/24 08:00 11/27/24 09:28 Potassium Chloride 20 Meq Er Tablet PO 20 meq DAILY@0800 [facility] Administration Sevelamer Carbonate 800 mg 11/24/24 12:00 11/27/24 09:22 Sevelamer Carbonate 800 Mg Tablet PO 800 mg TIDWM ASHLEY Administration Tamsulosin HCl 0.4 mg 11/23/24 09:00 11/27/24 09:27 Tamsulosin Hcl 0.4 Mg Capsule PO 0.4 mg BID ASHLEY Administration Torsemide 100 mg 11/23/24 09:00 11/27/24 09:28 Torsemide 20 Mg Tablet PO 100 mg QAM ASHLEY Administration Warfarin Sodium 3 mg 11/26/24 17:45 11/26/24 17:57 Warfarin (*Pbkc) 3 Mg Tablet PO 3 mg DAILY@1700 ASHLEY Administration Radiology Results: ITS Impressions Chest CT 11/22/24 19:18 IMPRESSION: Interval development of a left lower lobe infiltrate with increased left-sided pleural effusion, as detailed above. Redemonstration of mediastinal lymphadenopathy. Abdomen/Pelvis CT 11/23/24 20:48 IMPRESSION: Segmental left lower lobe atelectasis/consolidation. Large left pleural effusion. Cholelithiasis, without CT evidence of cholecystitis. Mild right hydronephrosis with ureteral stranding and inflammatory change of the urinary bladder, findings may represent cystitis with ascending infection. Inflamed fat-containing umbilical hernia. Moderate body wall edema. Abdomen X-Ray 11/24/24 13:45 IMPRESSION: NO ACUTE ABDOMINAL FINDINGS. No definite stones seen. Noncontrast CT is better for evaluation. Thoracentesis Ultrasound 11/26/24 15:38 Impression: Successful ultrasound guided thoracentesis. Plan: Follow-up chest radiograph will be obtained. Chest X-Ray 11/26/24 16:30 IMPRESSION: No pneumothorax following left-sided thoracentesis, as detailed above. Labs Labs: Laboratory Results - last 24 hr 11/26/24 11/26/24 11/26/24 11:17 14:43 17:14 WBC RBC Hgb Hct MCV MCH MCHC RDW Plt Count MPV Immature Gran % (Auto) Neut % (Auto) Lymph % (Auto) [place] % (Auto) Eos % (Auto) Baso % (Auto) Lymph # (Auto) [place] # (Auto) Eos # (Auto) Baso # (Auto) Abs Immat Gran (auto) Absolute Neuts (auto) Absolute Nucleated RBC Nucleated RBC % PT INR APTT Sodium Potassium Chloride Carbon Dioxide Anion Gap BUN Creatinine Estim Creat Clear Calc Estimated GFR Glucose POC Capillary Glucose 63 L 94 Calcium Magnesium Total Bilirubin AST ALT Alkaline Phosphatase Total Protein Albumin Pleural Fluid Source Pleural fluid Pleural Color Red Pleural Appearance Bloody Pleural pH 7.488 Pleural RBC 92871 H Pleural Nuc Cells 649 Pleural Neutrophils 0 Pleural Lymphocytes 91 Pleural Macrophages 8 Pleural Mesothelial 1 11/26/24 11/26/24 11/26/24 19:49 21:36 23:50 WBC RBC Hgb Hct MCV MCH MCHC RDW Plt Count MPV Immature Gran % (Auto) Neut % (Auto) Lymph % (Auto) [place] % (Auto) Eos % (Auto) Baso % (Auto) Lymph # (Auto) [place] # (Auto) Eos # (Auto) Baso # (Auto) Abs Immat Gran (auto) Absolute Neuts (auto) Absolute Nucleated RBC Nucleated RBC % PT INR APTT Sodium Potassium Chloride Carbon Dioxide Anion Gap BUN Creatinine Estim Creat Clear Calc Estimated GFR Glucose POC Capillary Glucose 188 H 288 H 292 H Calcium Magnesium Total Bilirubin AST ALT Alkaline Phosphatase Total Protein Albumin Pleural Fluid Source Pleural Color Pleural Appearance Pleural pH Pleural RBC Pleural Nuc Cells Pleural Neutrophils Pleural Lymphocytes Pleural Macrophages Pleural Mesothelial 11/27/24 11/27/24 11/27/24 01:52 03:56 04:55 WBC 5.9 RBC 4.07 L Hgb 12.1 L Hct 36.8 L MCV 90.4 MCH 29.7 MCHC 32.9 RDW 13.7 Plt Count 171 MPV 10.6 H Immature Gran % (Auto) 1.5 H Neut % (Auto) 61.0 Lymph % (Auto) 20.3 [place] % (Auto) 12.1 H Eos % (Auto) 4.6 H Baso % (Auto) 0.5 Lymph # (Auto) 1.19 [place] # (Auto) 0.7 H Eos # (Auto) 0.3 Baso # (Auto) 0.0 Abs Immat Gran (auto) 0.09 H Absolute Neuts (auto) 3.6 Absolute Nucleated RBC 0.000 Nucleated RBC % 0.0 PT 17.7 H INR 1.4 APTT 28.3 Sodium Potassium Chloride Carbon Dioxide Anion Gap BUN Creatinine Estim Creat Clear Calc Estimated GFR Glucose POC Capillary Glucose 251 H 205 H Calcium Magnesium Total Bilirubin AST ALT Alkaline Phosphatase Total Protein Albumin Pleural Fluid Source Pleural Color Pleural Appearance Pleural pH Pleural RBC Pleural Nuc Cells Pleural Neutrophils Pleural Lymphocytes Pleural Macrophages Pleural Mesothelial 11/27/24 11/27/24 11/27/24 04:56 05:52 08:07 WBC RBC Hgb Hct MCV MCH MCHC RDW Plt Count MPV Immature Gran % (Auto) Neut % (Auto) Lymph % (Auto) [place] % (Auto) Eos % (Auto) Baso % (Auto) Lymph # (Auto) [place] # (Auto) Eos # (Auto) Baso # (Auto) Abs Immat Gran (auto) Absolute Neuts (auto) Absolute Nucleated RBC Nucleated RBC % PT INR APTT Sodium 131 L Potassium 3.8 Chloride 92 L Carbon Dioxide 26 Anion Gap 13 H BUN 70 H Creatinine 7.46 H Estim Creat Clear Calc 13 Estimated GFR 8 L Glucose 214 H POC Capillary Glucose 208 H 191 H Calcium 8.1 L Magnesium 1.7 Total Bilirubin 0.7 AST 26 ALT 27 Alkaline Phosphatase 71 Total Protein 6.0 L Albumin 3.1 L Pleural Fluid Source Pleural Color Pleural Appearance Pleural pH Pleural RBC Pleural Nuc Cells Pleural Neutrophils Pleural Lymphocytes Pleural Macrophages Pleural Mesothelial
[2024-11-27 12:18] LABS: Glucose Point of Care 273 mg/dl (65-105)
[2024-11-27] MEDS: INSULIN ASPART (*BKC) 100 UNITS/ML SUB-Q (12:32)
[2024-11-27] MEDS: INSULIN GLARGINE (*BKC) 100 UNITS/ML 20 UNITS SUB-Q (12:33)
--- NOTE | 2024-11-27 13:42 | P.PNNP_ITS ---
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 * s/p thoracentesis (on 11/26) * pleural fluid cell count noted * pleural fluid cultures pending * suspect contributing to shortness of breath on presentation (4) Right flank pain: Code(s): R10.9 - Unspecified abdominal pain Status: Acute Assessment and Plan: * noted on admission with radiation to groin * admission CT showed mild right hydronephrosis with ureteral stranding and inflammatory changes the urinary bladder which may represent cystitis with ascending infection * suspect he may have passed a kindey stone * continue supportive therapy (5) Hypertension: Code(s): I10 - Essential (primary) hypertension Status: Chronic Assessment and Plan: * reasonable control at this time * follow trend of hemodynamics (6) Anemia: Code(s): D64.9 - Anemia, unspecified Status: Chronic Assessment and Plan: * due to ESRD * H/H at goal if not supratherapeutic * resume CORRINE if Hgb < 10 (7) Obstructive sleep apnea: Code(s): G47.33 - Obstructive sleep apnea (adult) (pediatric) Status: Chronic Assessment and Plan: * continue nightly CPAP use (8) Type 1 diabetes mellitus with hyperglycemia: Code(s): E10.65 - Type 1 diabetes mellitus with hyperglycemia Status: Acute Assessment and Plan: * follow accu-cheks * glycemic control per hospitalist Will continue to follow. L Subjective Date/time seen: 11/27/24 13:42 Interval history: Follow-up for end stage renal disease on peritoneal dialysis. Status post thoracentesis yesterday and tolerated the procedure reasonably well; tolerated peritoneal dialysis treatment overnight as well ([facility] supervised and seen at 1:32PM); reports significant improving in his breathing/respiratory status at the time of my visit. Exam 2 Narrative: General: WD/WN male in NAD Heart: normal S1 and S2; no rub Lungs: clear anteriorly, decreased at bases Abdomen: soft, nontender, nondistended, positive bowel sounds Extremities: no cyanosis or clubbing; trace - 1+ edema (chronic) Skin: no rash Objective Data Vital Signs Vital Signs: Vital Signs Temp Pulse Resp BP Pulse Ox O2 Del Method 11/27/24 13:00 97.6 F 116 H 20 111/74 100 11/27/24 09:50 Room Air 11/27/24 09:19 96 11/27/24 08:00 97.8 F 89 20 124/68 98 11/27/24 07:30 97.9 F 91 20 126/73 11/27/24 03:48 97.9 F 91 20 126/73 99 11/27/24 02:34 CPAP 11/26/24 22:55 92 96 CPAP 11/26/24 21:37 97.5 F L 88 20 123/76 99 11/26/24 21:05 100 20 11/26/24 21:05 96 Room Air 11/26/24 20:40 88 11/26/24 20:37 97.3 F L 89 16 135/81 98 11/26/24 20:00 Room Air Intake/Output Intake/Output: Intake & Output 11/24/24 11/25/24 11/26/24 11/27/24 23:59 23:59 23:59 23:59 Intake Total 3648 3350 2332.7 2484 Output Total 350 150 900 300 Balance 3298 3200 1432.7 2184 Meds/Results Medications: Active Medications Generic Name Dose Route Start Last Admin Trade Name Freq PRN Reason Stop Dose Admin Hydrocodone Bitart/Acetaminophen 1 tab 11/24/24 12:45 11/24/24 22:20 Hydrocodone/Acetaminophen (*Crx) 5-325 Mg Tablet PO 1 tab Q4H PRN Administration Pain Rated 4-6 Albuterol 2 puff 11/23/24 01:57 11/26/24 21:05 Albuterol Sulfate (*Sp) Aerosol 1 Puff INHALATION 2 puff QID PRN Administration shortness of breath or wheezing Alprazolam 0.25 mg 11/25/24 12:45 11/26/24 01:16 Alprazolam (*Crx) 0.25 Mg Tablet PO 0.25 mg Q8HR PRN Administration Anxiety Amlodipine Besylate 10 mg 11/23/24 21:00 11/26/24 20:40 Amlodipine Besylate 10 Mg Tablet PO 10 mg HS ASHLEY Administration Amoxicillin/Clavulanate Potassium 1 tablet 11/26/24 21:00 11/27/24 09:16 Amoxicillin/Clavulanate K 500-125 Mg Tab PO 11/29/24 09:01 1 tablet Q12HR ASHLEY Administration Aspirin 81 mg 11/23/24 09:00 11/27/24 09:17 Aspirin 81 Mg Enteric Tablet PO 81 mg QAM ASHLEY Administration Atorvastatin Calcium 80 mg 11/23/24 09:00 11/27/24 09:16 Atorvastatin 40 Mg Tablet PO 80 mg DAILY ASHLEY Administration Calcitriol 0.25 mcg 11/23/24 09:00 11/27/24 09:18 Calcitriol 0.25 Mcg Capsule PO 0.25 mcg QAM ASHLEY Administration Calcium Acetate 667 mg 11/23/24 09:00 11/27/24 16:48 Calcium Acetate 667 Mg Tablet PO 667 mg QID ASHLEY Administration Colchicine 0.6 mg 11/25/24 09:00 11/27/24 09:17 Colchicine 0.6 Mg Tablet PO 0.6 mg [id number]@0900 ASHLEY Administration Cyclobenzaprine HCl 5 mg 11/23/24 01:57 11/23/24 16:25 Cyclobenzaprine Hcl 5 Mg Tablet PO 5 mg TID PRN Administration muscle spasm Dextrose 12.5 gm 11/22/24 20:30 11/26/24 06:28 Dextrose 50% 25 Gm/50 Ml Syringe IV PUSH 12.5 gm PRN PRN Administration Hypoglycemia Protocol Ezetimibe 10 mg 11/23/24 09:00 11/27/24 09:26 Ezetimibe 10 Mg Tablet PO 10 mg DAILY ASHLEY Administration Ergocalciferol 50,000 units 11/25/24 09:00 11/25/24 12:25 Ergocalciferol 50,000 Units Capsule PO 50,000 units Mo@0900 ASHLEY Administration Famotidine 40 mg 11/23/24 21:00 11/26/24 20:39 Famotidine 20 Mg Tablet PO 40 mg HS ASHLEY Administration Fish Oil 1 gm 11/23/24 09:00 11/27/24 16:48 [place] 3 Polyunsat Fatty Acids 1 Gm Cap PO 1 gm QID ASHLEY Administration Gentamicin Sulfate 1 applic 11/23/24 21:00 11/26/24 19:56 Gentamicin Sulfate 0.1% Cr 15 Gm Tube TOPICAL Not Given HS ASHLEY Guaifenesin/Dextromethorphan 10 ml 11/22/24 23:50 11/27/24 15:48 Guaifenesin/Dextromethorphan 10 Ml Udc PO 10 ml BID PRN Administration Cough Heparin Sodium (Porcine) 7,500 units 11/27/24 07:19 Heparin Sodium 5,000 Units/Ml Vial IV PUSH PRN PRN aPTT less than 55 seconds Heparin Sodium (Porcine) 3,500 units 11/27/24 07:19 Heparin Sodium 5,000 Units/Ml Vial IV PUSH PRN PRN aPTT 55 - 70 seconds Dextrose 1,000 mls @ 100 mls/hr 11/22/24 20:30 Dextrose 5% 1,000 Ml IVPB PRN PRN Hypoglycemia Protocol Heparin Sodium/Dextrose 25,000 units in 250 mls @ 15 mls/hr 11/27/24 07:20 11/27/24 16:35 Heparin Sodium/D5w 100 Units/Ml IV CONT 1,500 units/hr .[id number] ASHLEY 15 mls/hr Titration Protocol 1,500 UNITS/HR Insulin Aspart 2 - 5 units 11/23/24 08:00 11/27/24 17:34 Insulin Aspart (*Bkc) 100 Units/Ml SUB-Q Not Given TIDWM [facility] Protocol Insulin Aspart 1 - 2 units 11/22/24 21:00 11/26/24 19:56 Insulin Aspart (*Bkc) 100 Units/Ml SUB-Q Not Given HS [facility] Protocol Insulin Aspart 8 units 11/27/24 09:40 11/27/24 17:39 Insulin Aspart (*Bkc) 100 Units/Ml SUB-Q 8 units TIDWM ASHLEY Administration Insulin Glargine 20 units 11/28/24 09:00 Insulin Glargine (*Bkc) 100 Units/Ml SUB-Q DAILY@0900 ASHLEY Insulin Human NPH 15 units 11/27/24 21:00 Insulin Human Nph (*Bkc) 100 Units/Ml SUB-Q HS ASHLEY Levothyroxine Sodium 25 mcg 11/23/24 06:30 11/27/24 05:53 Levothyroxine Sodium 25 Mcg Tablet PO 25 mcg DAILY@0630 [facility] Administration Lidocaine 1 patch 11/23/24 09:00 11/27/24 09:42 Lidocaine 5% Patch TRANSDERM Not Given DAILY [facility] Linaclotide 72 mcg 11/23/24 01:57 Linaclotide 72 Mcg Capsule PO DAILY PRN Diarrhea Loratadine 10 mg 11/23/24 09:00 11/27/24 09:22 Loratadine 10 Mg Tablet PO 10 mg QAM [facility] Administration Metoprolol Tartrate 50 mg 11/22/24 23:40 11/27/24 09:19 Metoprolol Tartrate 50 Mg Tab PO 50 mg Q12HR [facility] Administration Morphine Sulfate 2 mg 11/23/24 17:27 11/24/24 08:09 Morphine Sulfate (*Crx) 2 Mg/Ml Inj IV PUSH 2 mg Q4H PRN Administration Pain Rated 7-10 Nitroglycerin 0.4 mg 11/23/24 09:23 Nitroglycerin Sl 0.4 Mg Tablet SUBLINGUAL Q5MIN PRN Chest Pain Pantoprazole Sodium 40 mg 11/23/24 09:00 11/27/24 09:21 Pantoprazole 40 Mg Tablet PO 40 mg QAM [facility] Administration Potassium Chloride 20 meq 11/23/24 08:00 11/27/24 09:28 Potassium Chloride 20 Meq Er Tablet PO 20 meq DAILY@0800 [facility] Administration Sevelamer Carbonate 800 mg 11/24/24 12:00 11/27/24 16:48 Sevelamer Carbonate 800 Mg Tablet PO 800 mg TIDWM [facility] Administration Tamsulosin HCl 0.4 mg 11/23/24 09:00 11/27/24 16:48 Tamsulosin Hcl 0.4 Mg Capsule PO 0.4 mg BID [facility] Administration Torsemide 100 mg 11/23/24 09:00 11/27/24 09:28 Torsemide 20 Mg Tablet PO 100 mg QAM [facility] Administration Warfarin Sodium 3 mg 11/26/24 17:45 11/27/24 16:49 Warfarin (*Pbkc) 3 Mg Tablet PO 3 mg DAILY@1700 [facility] Administration Radiology Results: ITS Impressions Chest CT 11/22/24 19:18 IMPRESSION: Interval development of a left lower lobe infiltrate with increased left-sided pleural effusion, as detailed above. Redemonstration of mediastinal lymphadenopathy. Abdomen/Pelvis CT 11/23/24 20:48 IMPRESSION: Segmental left lower lobe atelectasis/consolidation. Large left pleural effusion. Cholelithiasis, without CT evidence of cholecystitis. Mild right hydronephrosis with ureteral stranding and inflammatory change of the urinary bladder, findings may represent cystitis with ascending infection. Inflamed fat-containing umbilical hernia. Moderate body wall edema. Abdomen X-Ray 11/24/24 13:45 IMPRESSION: NO ACUTE ABDOMINAL FINDINGS. No definite stones seen. Noncontrast CT is better for evaluation. Thoracentesis Ultrasound 11/26/24 15:38 Impression: Successful ultrasound guided thoracentesis. Plan: Follow-up chest radiograph will be obtained. Chest X-Ray 11/26/24 16:30 IMPRESSION: No pneumothorax following left-sided thoracentesis, as detailed above. Labs Labs: Laboratory Tests 11/27/24 04:55 11/27/24 04:56 Calcium 8.1 L Magnesium 1.7 Total Bilirubin 0.7 AST 26 ALT 27 Alkaline Phosphatase 71 Total Protein 6.0 L Albumin 3.1 L Microbiology 11/26/24 14:55 Pleural Fluid Anaerobic Culture - Preliminary
[2024-11-27] MEDS: guaiFENesin/DEXTROMETHORPHAN 10 ML UDC PO (15:48)
[2024-11-27 16:16] LABS: Partial Thromboplastin Time 103.1 Seconds (22.3-36.8)
[2024-11-27 17:23] LABS: Glucose Point of Care 138 mg/dl (65-105)
[2024-11-27 20:00] LABS: Glucose Point of Care 113 mg/dl (65-105)
[2024-11-27] MEDS: INSULIN HUMAN NPH (*BKC) 100 UNITS/ML 15 UNITS SUB-Q (21:07)
[2024-11-27 21:10] LABS: Glucose Point of Care 127 mg/dl (65-105)
[2024-11-27] MEDS: amLODIPine BESYLATE 10 MG TABLET PO (21:12)
[2024-11-27] MEDS: FAMOTIDINE 20 MG TABLET 40 MG PO (21:12)
[2024-11-27] MEDS: ALBUTEROL SULFATE (*SP) AEROSOL 1 PUFF 2 PUFF INHALATION (21:16)
[2024-11-27] MEDS: HYDROcodone/acetaminophen (*CRX) 5-325 MG TABLET 1 TAB PO (21:17)
[2024-11-27 22:23] LABS: Partial Thromboplastin Time 64.4 Seconds (22.3-36.8)
[2024-11-27 22:28] LABS: Glucose Point of Care 128 mg/dl (65-105)
[2024-11-27] MEDS: HEPARIN SODIUM 5,000 UNITS/ML VIAL 3500 UNITS IV PUSH (23:58)
[2024-11-28 02:08] LABS: Glucose Point of Care 186 mg/dl (65-105)
[2024-11-28] MEDS: HEPARIN SOD/D5W 100 UNITS/ML 25,000 UNITS/250 ML BAG 17 UNITS IV CONT (02:43)
[2024-11-28] MEDS: LEVOTHYROXINE SODIUM 25 MCG TABLET PO (06:05)
[2024-11-28 06:22] LABS: Basophils Percent Auto 0.5 % (0.2-1.2); Eosinophils Absolute Auto 0.3 K/mm3 (0-0.3); Eosinophils Percent Auto 5.1 % (0-4.4); Hematocrit 33.1 % (42.0-52.0); Immature Granulocyte Percent A 1.5 % (0-0.5); Lymphocytes Absolute Auto 1.43 K/mm3 (0.9-3.2); Lymphocytes Percent Auto 22.1 % (18.3-44.2); Mean Corpuscular HGB Conc 33.2 g/dl (32-36); Mean Corpuscular Volume 90.2 fl (80-100); Mean Platelet Volume 10.9 fl (7.4-10.4); Monocytes Percent Auto 15.1 % (2.6-8.5); Neutrophils Absolute Auto 3.6 K/mm3 (1.3-6.7); Neutrophils Percent Auto 55.7 % (45.5-73.1); Platelet Count Result 164 k/mm3 (150-375); Red Blood Count 3.67 M/mm3 (4.6-6.20); Red Cell Distribution Width 13.7 % (11.5-14.5); White Blood Count 6.5 K/mm3 (4.5-10.0)
[2024-11-28 06:26] LABS: INR 1.4; Prothrombin Time 18.1 Seconds (11.1-14.7)
[2024-11-28 06:29] LABS: Partial Thromboplastin Time 139.8 Seconds (22.3-36.8)
--- NOTE | 2024-11-28 06:37 | PC.NURSE ---
aPTT for 0600 was 139.8. Per protocol, infusion is to be held for 1 hour and decreased by 3 mls/hr. At 0635 infusion was placed on standby.
[2024-11-28 06:47] LABS: Albumin Level 2.9 g/dL (3.5-5.1); Anion Gap 12 mmol/L (4-12); Blood Urea Nitrogen 67 mg/dL (9-20); Calcium 8.1 mg/dL (8.4-10.2); Carbon Dioxide 25 mmol/L (22-30); Chloride 93 mmol/L (98-107); Estimated CRCL calculation 12 ml/min; Estimated Glomerular Filt Rate 7; Glucose 252 mg/dL (65-110); Potassium 3.5 mmol/L (3.4-5.0); Sodium 130 mmol/L (137-145)
[2024-11-28 08:00] VITALS: BP 142/71; PULSE 91; RESP 18; TEMP 36.6; O2SAT 96
[2024-11-28 08:37] LABS: Glucose Point of Care 254 mg/dl (65-105)
[2024-11-28] MEDS: INSULIN ASPART (*BKC) 100 UNITS/ML 8 UNITS SUB-Q ×3 (09:10→17:56)
[2024-11-28] MEDS: INSULIN ASPART (*BKC) 100 UNITS/ML SUB-Q ×2 (09:10→20:02)
[2024-11-28] MEDS: INSULIN GLARGINE (*BKC) 100 UNITS/ML 20 UNITS SUB-Q (09:11)
[2024-11-28] MEDS: SEVELAMER CARBONATE 800 MG TABLET PO ×3 (09:11→17:55)
[2024-11-28] MEDS: PANTOPRAZOLE 40 MG TABLET PO (09:11)
[2024-11-28] MEDS: ATORVASTATIN 40 MG TABLET 80 MG PO (09:11)
[2024-11-28] MEDS: ASPIRIN 81 MG ENTERIC TABLET PO (09:11)
[2024-11-28] MEDS: LORATADINE 10 MG TABLET PO (09:11)
[2024-11-28 09:12] VITALS: PULSE 91
[2024-11-28] MEDS: METOPROLOL TARTRATE 50 MG TAB PO ×2 (09:12→20:15)
[2024-11-28] MEDS: TAMSULOSIN HCL 0.4 MG CAPSULE PO ×2 (09:12→17:55)
[2024-11-28] MEDS: TORSEMIDE 20 MG TABLET 100 MG PO (09:12)
[2024-11-28] MEDS: calcitrioL 0.25 MCG CAPSULE PO (09:12)
[2024-11-28] MEDS: CALCIUM ACETATE 667 MG TABLET PO ×4 (09:12→20:15)
[2024-11-28] MEDS: AMOXICILLIN/CLAVULANATE K 500-125 MG TAB 1 TABLET PO ×2 (09:12→20:15)
[2024-11-28] MEDS: OMEGA 3 POLYUNSAT FATTY ACIDS 1 GM CAP PO ×4 (09:12→20:15)
[2024-11-28] MEDS: EZETIMIBE 10 MG TABLET PO (09:12)
[2024-11-28] MEDS: POTASSIUM CHLORIDE 20 MEQ ER TABLET PO (09:16)
[2024-11-28 11:55] LABS: Glucose Point of Care 173 mg/dl (65-105)
[2024-11-28 12:52] LABS: INR 1.4; Prothrombin Time 17.6 Seconds (11.1-14.7)
[2024-11-28] MEDS: HEPARIN SODIUM 5,000 UNITS/ML VIAL 3500 UNITS IV PUSH (13:12)
--- NOTE | 2024-11-28 14:00 | P.PNNP_ITS ---
Progress Note: A&P Assessment and Plan (1) End stage renal disease: Code(s): N18.6 - End stage renal disease Status: Chronic Assessment and Plan: * continue nightly peritoneal dialysis treatments * follow electrolytes, volume status and clearance * primary switch maker = Dr Sharath Reyes * outpatient dialysis unit = [facility] (2) Pneumonia: Code(s): J18.9 - Pneumonia, unspecified organism Status: Acute Assessment and Plan: * presumed to contributing to shortness of breath * on antibiotics * follow culture data - negative to date (3) Pleural effusion, left: Code(s): J90 - Pleural effusion, not elsewhere classified Status: Acute Assessment and Plan: * possibly parapenumonic... * s/p thoracentesis (on 11/26) * pleural fluid cell count noted * pleural fluid cultures pending * suspect contributing to shortness of breath on presentation (4) Right flank pain: Code(s): R10.9 - Unspecified abdominal pain Status: Acute Assessment and Plan: * noted on admission with radiation to groin * admission CT showed mild right hydronephrosis with ureteral stranding and inflammatory changes the urinary bladder which may represent cystitis with ascending infection * suspect he may have passed a kindey stone * continue supportive therapy (5) Hypertension: Code(s): I10 - Essential (primary) hypertension Status: Chronic Assessment and Plan: * reasonable control at this time * follow trend of hemodynamics (6) Anemia: Code(s): D64.9 - Anemia, unspecified Status: Chronic Assessment and Plan: * due to ESRD * H/H at goal if not supratherapeutic * resume CORRINE if Hgb < 10 (7) Obstructive sleep apnea: Code(s): G47.33 - Obstructive sleep apnea (adult) (pediatric) Status: Chronic Assessment and Plan: * continue nightly CPAP use (8) Type 1 diabetes mellitus with hyperglycemia: Code(s): E10.65 - Type 1 diabetes mellitus with hyperglycemia Status: Acute Assessment and Plan: * follow accu-cheks * glycemic control per hospitalist Will continue to follow. L Subjective Date/time seen: 11/28/24 14:00 Interval history: Follow-up for end stage renal disease on peritoneal dialysis. Tolerated peritoneal dialysis treatment yesterday evening without any issue or problems; remains on heparin gtt; breathing/respiratory status appears stable if not better; no apparent distress noted. Exam 2 Narrative: General: WD/WN male in NAD Heart: normal S1 and S2; no rub Lungs: clear anteriorly, decreased at bases Abdomen: soft, nontender, nondistended, positive bowel sounds Extremities: no cyanosis or clubbing; trace - 1+ edema (chronic) Skin: no nodules Objective Data Vital Signs Vital Signs: Vital Signs Temp Pulse Resp BP Pulse Ox O2 Del Method 11/28/24 09:12 91 11/28/24 09:10 Room Air 11/28/24 08:00 97.9 F 91 18 142/71 H 96 11/27/24 23:47 97.7 F 96 20 121/74 98 11/27/24 21:16 88 20 11/27/24 21:16 88 20 95 Room Air 11/27/24 21:13 99 11/27/24 21:10 Room Air 11/27/24 20:41 98.3 F 99 16 127/74 98 Intake/Output Intake/Output: Intake & Output 11/25/24 11/26/24 11/27/24 11/28/24 23:59 23:59 23:59 23:59 Intake Total 3350 2332.7 3074.7 1032.5 Output Total 150 637 973 1939 Balance 3200 1432.7 2774.7 -1416.5 Meds/Results Medications: Active Medications Generic Name Dose Route Start Last Admin Trade Name Freq PRN Reason Stop Dose Admin Hydrocodone Bitart/Acetaminophen 1 tab 11/24/24 12:45 11/27/24 21:17 Hydrocodone/Acetaminophen (*Crx) 5-325 Mg Tablet PO 1 tab Q4H PRN Administration Pain Rated 4-6 Albuterol 2 puff 11/23/24 01:57 11/27/24 21:16 Albuterol Sulfate (*Sp) Aerosol 1 Puff INHALATION 2 puff QID PRN Administration shortness of breath or wheezing Alprazolam 0.25 mg 11/25/24 12:45 11/26/24 01:16 Alprazolam (*Crx) 0.25 Mg Tablet PO 0.25 mg Q8HR PRN Administration Anxiety Amlodipine Besylate 10 mg 11/23/24 21:00 11/27/24 21:12 Amlodipine Besylate 10 Mg Tablet PO 10 mg HS ASHLEY Administration Amoxicillin/Clavulanate Potassium 1 tablet 11/26/24 21:00 11/28/24 09:12 Amoxicillin/Clavulanate K 500-125 Mg Tab PO 11/29/24 09:01 1 tablet Q12HR ASHLEY Administration Aspirin 81 mg 11/23/24 09:00 11/28/24 09:11 Aspirin 81 Mg Enteric Tablet PO 81 mg QAM ASHLEY Administration Atorvastatin Calcium 80 mg 11/23/24 09:00 11/28/24 09:11 Atorvastatin 40 Mg Tablet PO 80 mg DAILY ASHLEY Administration Calcitriol 0.25 mcg 11/23/24 09:00 11/28/24 09:12 Calcitriol 0.25 Mcg Capsule PO 0.25 mcg QAM ASHLEY Administration Calcium Acetate 667 mg 11/23/24 09:00 11/28/24 12:27 Calcium Acetate 667 Mg Tablet PO 667 mg QID ASHLEY Administration Colchicine 0.6 mg 11/25/24 09:00 11/27/24 09:17 Colchicine 0.6 Mg Tablet PO 0.6 mg MoWeFr@0900 ASHLEY Administration Cyclobenzaprine HCl 5 mg 11/23/24 01:57 11/23/24 16:25 Cyclobenzaprine Hcl 5 Mg Tablet PO 5 mg TID PRN Administration muscle spasm Dextrose 12.5 gm 11/22/24 20:30 11/26/24 06:28 Dextrose 50% 25 Gm/50 Ml Syringe IV PUSH 12.5 gm PRN PRN Administration Hypoglycemia Protocol Ezetimibe 10 mg 11/23/24 09:00 11/28/24 09:12 Ezetimibe 10 Mg Tablet PO 10 mg DAILY ASHLEY Administration Ergocalciferol 50,000 units 11/25/24 09:00 11/25/24 12:25 Ergocalciferol 50,000 Units Capsule PO 50,000 units Mo@0900 ASHLEY Administration Famotidine 40 mg 11/23/24 21:00 11/27/24 21:12 Famotidine 20 Mg Tablet PO 40 mg HS ASHLEY Administration Fish Oil 1 gm 11/23/24 09:00 11/28/24 12:27 [place] 3 Polyunsat Fatty Acids 1 Gm Cap PO 1 gm QID ASHLEY Administration Gentamicin Sulfate 1 applic 11/23/24 21:00 11/28/24 15:50 Gentamicin Sulfate 0.1% Cr 15 Gm Tube TOPICAL 1 applic HS [facility] Administration Guaifenesin/Dextromethorphan 10 ml 11/22/24 23:50 11/27/24 15:48 Guaifenesin/Dextromethorphan 10 Ml Udc PO 10 ml BID PRN Administration Cough Heparin Sodium (Porcine) 7,500 units 11/27/24 07:19 Heparin Sodium 5,000 Units/Ml Vial IV PUSH PRN PRN aPTT less than 55 seconds Heparin Sodium (Porcine) 3,500 units 11/27/24 07:19 11/28/24 13:12 Heparin Sodium 5,000 Units/Ml Vial IV PUSH 3,500 units PRN PRN Administration aPTT 55 - 70 seconds Dextrose 1,000 mls @ 100 mls/hr 11/22/24 20:30 Dextrose 5% 1,000 Ml IVPB PRN PRN Hypoglycemia Protocol Heparin Sodium/Dextrose 25,000 units in 250 mls @ 16 mls/hr 11/27/24 07:20 11/28/24 13:12 Heparin Sodium/D5w 100 Units/Ml IV CONT 1,600 units/hr .[id number] [facility] 16 mls/hr Titration Protocol 1,600 UNITS/HR Insulin Aspart 2 - 5 units 11/23/24 08:00 11/28/24 12:27 Insulin Aspart (*Bkc) 100 Units/Ml SUB-Q Not Given TIDWM [facility] Protocol Insulin Aspart 1 - 2 units 11/22/24 21:00 11/27/24 21:15 Insulin Aspart (*Bkc) 100 Units/Ml SUB-Q Not Given [facility] Protocol Insulin Aspart 8 units 11/27/24 09:40 11/28/24 12:27 Insulin Aspart (*Bkc) 100 Units/Ml SUB-Q 8 units TIDWM [facility] Administration Insulin Glargine 20 units 11/28/24 09:00 11/28/24 09:11 Insulin Glargine (*Bkc) 100 Units/Ml SUB-Q 20 units DAILY@0900 [facility] Administration Insulin Human NPH 20 units 11/28/24 21:00 Insulin Human Nph (*Bkc) 100 Units/Ml SUB-Q [facility] Levothyroxine Sodium 25 mcg 11/23/24 06:30 11/28/24 06:05 Levothyroxine Sodium 25 Mcg Tablet PO 25 mcg DAILY@0630 [facility] Administration Lidocaine 1 patch 11/23/24 09:00 11/28/24 09:13 Lidocaine 5% Patch TRANSDERM Not Given DAILY [facility] Linaclotide 72 mcg 11/23/24 01:57 Linaclotide 72 Mcg Capsule PO DAILY PRN Diarrhea Loratadine 10 mg 11/23/24 09:00 11/28/24 09:11 Loratadine 10 Mg Tablet PO 10 mg QAM ASHLEY Administration Metoprolol Tartrate 50 mg 11/22/24 23:40 11/28/24 09:12 Metoprolol Tartrate 50 Mg Tab PO 50 mg Q12HR ASHLEY Administration Morphine Sulfate 2 mg 11/23/24 17:27 11/24/24 08:09 Morphine Sulfate (*Crx) 2 Mg/Ml Inj IV PUSH 2 mg Q4H PRN Administration Pain Rated 7-10 Nitroglycerin 0.4 mg 11/23/24 09:23 Nitroglycerin Sl 0.4 Mg Tablet SUBLINGUAL Q5MIN PRN Chest Pain Pantoprazole Sodium 40 mg 11/23/24 09:00 11/28/24 09:11 Pantoprazole 40 Mg Tablet PO 40 mg QAM [facility] Administration Potassium Chloride 20 meq 11/23/24 08:00 11/28/24 09:16 Potassium Chloride 20 Meq Er Tablet PO 20 meq DAILY@0800 [facility] Administration Sevelamer Carbonate 800 mg 11/24/24 12:00 11/28/24 12:27 Sevelamer Carbonate 800 Mg Tablet PO 800 mg TIDWM [facility] Administration Sodium Chloride 1 spray 11/28/24 15:27 Saline 0.65% [place] 44 Ml Btl NASAL Q6HR PRN Congestion Tamsulosin HCl 0.4 mg 11/23/24 09:00 11/28/24 09:12 Tamsulosin Hcl 0.4 Mg Capsule PO 0.4 mg BID ASHLEY Administration Torsemide 100 mg 11/23/24 09:00 11/28/24 09:12 Torsemide 20 Mg Tablet PO 100 mg QAM [facility] Administration Warfarin Sodium 3 mg 11/26/24 17:45 11/27/24 16:49 Warfarin (*Pbkc) 3 Mg Tablet PO 3 mg DAILY@1700 [facility] Administration Radiology Results: ITS Impressions Chest CT 11/22/24 19:18 IMPRESSION: Interval development of a left lower lobe infiltrate with increased left-sided pleural effusion, as detailed above. Redemonstration of mediastinal lymphadenopathy. Abdomen/Pelvis CT 11/23/24 20:48 IMPRESSION: Segmental left lower lobe atelectasis/consolidation. Large left pleural effusion. Cholelithiasis, without CT evidence of cholecystitis. Mild right hydronephrosis with ureteral stranding and inflammatory change of the urinary bladder, findings may represent cystitis with ascending infection. Inflamed fat-containing umbilical hernia. Moderate body wall edema. Abdomen X-Ray 11/24/24 13:45 IMPRESSION: NO ACUTE ABDOMINAL FINDINGS. No definite stones seen. Noncontrast CT is better for evaluation. Thoracentesis Ultrasound 11/26/24 15:38 Impression: Successful ultrasound guided thoracentesis. Plan: Follow-up chest radiograph will be obtained. Chest X-Ray 11/26/24 16:30 IMPRESSION: No pneumothorax following left-sided thoracentesis, as detailed above. Labs Labs: Laboratory Tests 11/28/24 06:03 11/28/24 06:03 PT 18.1 H INR 1.4 Calcium 8.1 L Phosphorus 6.0 H Albumin 2.9 L Microbiology 11/26/24 14:55 Pleural Fluid Anaerobic Culture - Preliminary 11/26/24 14:55 Pleural Fluid Aerobic Culture - Preliminary 11/22/24 19:59 Blood Blood Culture - Final 11/22/24 20:08 Blood Blood Culture - Final
--- NOTE | 2024-11-28 15:27 | PM.IMPN ---
Progress Note: A&P Assessment and Plan (1) Pleural effusion, left: Code(s): J90 - Pleural effusion, not elsewhere classified Status: Acute Assessment and Plan: Left pleural effusion noted on imaging. Thoracentesis has been planned.however cannot perform due to anticoagulant use. Warfarin held Thoracentesis performed 11/26: 21K RBC and 649 WBC almost all lymphocytes. Other studies pending. Pleural Cx NGTD Probably related to PD INR still subtherapeutic at 1.4 today. Continue bridging Heparin. Continue Warfarin Follow up on pleural studies and cultures (2) Pneumonia: Code(s): J18.9 - Pneumonia, unspecified organism Status: Acute Assessment and Plan: Left-sided pneumonia with left-sided pleural effusion: Ceftriaxone and azithromycin scheduled for pneumonia. Thoracentesis ordered as above. Changed to Doxycycline and Augmentin and completed Doxy treatment. (3) End-stage renal disease on peritoneal dialysis: Code(s): N18.6 - End stage renal disease; Z99.2 - Dependence on renal dialysis Status: Acute Assessment and Plan: Nephrology consulted and appreciate their input. Renal diabetic diet. Continue PD to control fluid status. Plan Elevated troponin - Trop to 0.25 but flat. EKG showing AFlutter/tachycardia (HR 107) with Left BBB but no change from EKG in July. Echo in Aug 2024 showing EF 25%, and indeterminate diastolic function. Elevated Trop probably related to tachycardia associated with his low EF. [place] Type II PR from demand ischemia. CAD status post CABG (BRICE-LAD, SVG-OM, SVG to rPDA) in 09/2023 at [facility]. Continue Lopressor, Lipitor and ASA. Right flank pain - radiated to groin 11/23/2024. CT showed mild right hydronephrosis with ureteral stranding and inflammatory changes the urinary bladder which may represent cystitis with ascending infection. Likely passed some stone. Urology follow-up as an outpatient basis. This pain has resolved now. Inflammatory change around umbilical hernia clinically nontender in this area likely chronic finding Mechanical aortic valve (OnX) -dose warfarin to have INR goal of 1.5-2.5. As above. Paroxysmal Atrial fibrillation - rate better controlled. DVT prophylaxis Heparin Code status Full code. Subjective Date/time seen: 11/28/24 15:27 Interval history: 54yo male with an extensive medical history including CAD status post CABG, peritoneal dialysis, obesity, insulin-dependent diabetes mellitus, atrial fibrillation, mechanical aortic valve replacement on warfarin, who presents to [place] ER with complaint of shortness of breath worsening for 6 days. No problems overnight. No chest pain shortness of breath. He does complain of intermittent transient epistaxis. [place] related to the dry air at the hospital. Exam Narrative: AF 97.9 142/71 91 18 96% ra Gen - NARD Chest -left greater than right bibasilar crackles. CV - RRR with mechanical S2 Abd -soft. Obese. Nontender. Left lower quadrant PD catheter noted. Ext -trace-1+ pedal edema Neuro - Alert and appropriate Psych - Nml mood and affect Skin - Warm and dry Objective Data Vital Signs Vital Signs: Vital Signs - 24 hr 11/27/24 16:00 11/27/24 20:41 11/27/24 21:10 Temperature 97.6 F 98.3 F Pulse Rate 116 H 99 Respiratory Rate 20 16 Blood Pressure 111/74 127/74 Pulse Oximetry 100 98 Oxygen Delivery Room Air 11/27/24 21:13 11/27/24 21:16 11/27/24 21:16 Temperature Pulse Rate 99 88 88 Respiratory Rate 20 20 Blood Pressure Pulse Oximetry 95 Oxygen Delivery Room Air 11/27/24 23:47 11/28/24 08:00 11/28/24 09:10 Temperature 97.7 F 97.9 F Pulse Rate 96 91 Respiratory Rate 20 18 Blood Pressure 121/74 142/71 H Pulse Oximetry 98 96 Oxygen Delivery Room Air 11/28/24 09:12 Temperature Pulse Rate 91 Respiratory Rate Blood Pressure Pulse Oximetry Oxygen Delivery Intake/Output Intake/Output: Intake & Output 11/25/24 11/26/24 11/27/24 11/28/24 23:59 23:59 23:59 23:59 Intake Total 3350 2332.7 3074.7 1032.5 Output Total 150 817 770 6147 Balance 3200 1432.7 2774.7 -1416.5 Meds/Results Medications: Active Medications Generic Name Dose Route Start Last Admin Trade Name Freq PRN Reason Stop Dose Admin Hydrocodone Bitart/Acetaminophen 1 tab 11/24/24 12:45 11/27/24 21:17 Hydrocodone/Acetaminophen (*Crx) 5-325 Mg Tablet PO 1 tab Q4H PRN Administration Pain Rated 4-6 Albuterol 2 puff 11/23/24 01:57 11/27/24 21:16 Albuterol Sulfate (*Sp) Aerosol 1 Puff INHALATION 2 puff QID PRN Administration shortness of breath or wheezing Alprazolam 0.25 mg 11/25/24 12:45 11/26/24 01:16 Alprazolam (*Crx) 0.25 Mg Tablet PO 0.25 mg Q8HR PRN Administration Anxiety Amlodipine Besylate 10 mg 11/23/24 21:00 11/27/24 21:12 Amlodipine Besylate 10 Mg Tablet PO 10 mg HS ASHLEY Administration Amoxicillin/Clavulanate Potassium 1 tablet 11/26/24 21:00 11/28/24 09:12 Amoxicillin/Clavulanate K 500-125 Mg Tab PO 11/29/24 09:01 1 tablet Q12HR ASHLEY Administration Aspirin 81 mg 11/23/24 09:00 11/28/24 09:11 Aspirin 81 Mg Enteric Tablet PO 81 mg QAM ASHLEY Administration Atorvastatin Calcium 80 mg 11/23/24 09:00 11/28/24 09:11 Atorvastatin 40 Mg Tablet PO 80 mg DAILY ASHLEY Administration Calcitriol 0.25 mcg 11/23/24 09:00 11/28/24 09:12 Calcitriol 0.25 Mcg Capsule PO 0.25 mcg QAM ASHLEY Administration Calcium Acetate 667 mg 11/23/24 09:00 11/28/24 12:27 Calcium Acetate 667 Mg Tablet PO 667 mg QID ASHLEY Administration Colchicine 0.6 mg 11/25/24 09:00 11/27/24 09:17 Colchicine 0.6 Mg Tablet PO 0.6 mg MoWeFr@0900 ASHLEY Administration Cyclobenzaprine HCl 5 mg 11/23/24 01:57 11/23/24 16:25 Cyclobenzaprine Hcl 5 Mg Tablet PO 5 mg TID PRN Administration muscle spasm Dextrose 12.5 gm 11/22/24 20:30 11/26/24 06:28 Dextrose 50% 25 Gm/50 Ml Syringe IV PUSH 12.5 gm PRN PRN Administration Hypoglycemia Protocol Ezetimibe 10 mg 11/23/24 09:00 11/28/24 09:12 Ezetimibe 10 Mg Tablet PO 10 mg DAILY ASHLEY Administration Ergocalciferol 50,000 units 11/25/24 09:00 11/25/24 12:25 Ergocalciferol 50,000 Units Capsule PO 50,000 units Mo@0900 ASHLEY Administration Famotidine 40 mg 11/23/24 21:00 11/27/24 21:12 Famotidine 20 Mg Tablet PO 40 mg HS ASHLEY Administration Fish Oil 1 gm 11/23/24 09:00 11/28/24 12:27 [facility] 3 Polyunsat Fatty Acids 1 Gm Cap PO 1 gm QID ASHLEY Administration Gentamicin Sulfate 1 applic 11/23/24 21:00 11/27/24 21:19 Gentamicin Sulfate 0.1% Cr 15 Gm Tube TOPICAL Not Given HS [facility] Guaifenesin/Dextromethorphan 10 ml 11/22/24 23:50 11/27/24 15:48 Guaifenesin/Dextromethorphan 10 Ml Udc PO 10 ml BID PRN Administration Cough Heparin Sodium (Porcine) 7,500 units 11/27/24 07:19 Heparin Sodium 5,000 Units/Ml Vial IV PUSH PRN PRN aPTT less than 55 seconds Heparin Sodium (Porcine) 3,500 units 11/27/24 07:19 11/28/24 13:12 Heparin Sodium 5,000 Units/Ml Vial IV PUSH 3,500 units PRN PRN Administration aPTT 55 - 70 seconds Dextrose 1,000 mls @ 100 mls/hr 11/22/24 20:30 Dextrose 5% 1,000 Ml IVPB PRN PRN Hypoglycemia Protocol Heparin Sodium/Dextrose 25,000 units in 250 mls @ 16 mls/hr 11/27/24 07:20 11/28/24 13:12 Heparin Sodium/D5w 100 Units/Ml IV CONT 1,600 units/hr .[id number] [facility] 16 mls/hr Titration Protocol 1,600 UNITS/HR Insulin Aspart 2 - 5 units 11/23/24 08:00 11/28/24 12:27 Insulin Aspart (*Bkc) 100 Units/Ml SUB-Q Not Given TIDWM [facility] Protocol Insulin Aspart 1 - 2 units 11/22/24 21:00 11/27/24 21:15 Insulin Aspart (*Bkc) 100 Units/Ml SUB-Q Not Given HS [facility] Protocol Insulin Aspart 8 units 11/27/24 09:40 11/28/24 12:27 Insulin Aspart (*Bkc) 100 Units/Ml SUB-Q 8 units TIDWM A[facility] Administration Insulin Glargine 20 units 11/28/24 09:00 11/28/24 09:11 Insulin Glargine (*Bkc) 100 Units/Ml SUB-Q 20 units DAILY@0900 [facility] Administration Insulin Human NPH 20 units 11/28/24 21:00 Insulin Human Nph (*Bkc) 100 Units/Ml SUB-Q HS [facility] Levothyroxine Sodium 25 mcg 11/23/24 06:30 11/28/24 06:05 Levothyroxine Sodium 25 Mcg Tablet PO 25 mcg DAILY@0630 [facility] Administration Lidocaine 1 patch 11/23/24 09:00 11/28/24 09:13 Lidocaine 5% Patch TRANSDERM Not Given DAILY [facility] Linaclotide 72 mcg 11/23/24 01:57 Linaclotide 72 Mcg Capsule PO DAILY PRN Diarrhea Loratadine 10 mg 11/23/24 09:00 11/28/24 09:11 Loratadine 10 Mg Tablet PO 10 mg QAM [facility] Administration Metoprolol Tartrate 50 mg 11/22/24 23:40 11/28/24 09:12 Metoprolol Tartrate 50 Mg Tab PO 50 mg Q12HR [facility] Administration Morphine Sulfate 2 mg 11/23/24 17:27 11/24/24 08:09 Morphine Sulfate (*Crx) 2 Mg/Ml Inj IV PUSH 2 mg Q4H PRN Administration Pain Rated 7-10 Nitroglycerin 0.4 mg 11/23/24 09:23 Nitroglycerin Sl 0.4 Mg Tablet SUBLINGUAL Q5MIN PRN Chest Pain Pantoprazole Sodium 40 mg 11/23/24 09:00 11/28/24 09:11 Pantoprazole 40 Mg Tablet PO 40 mg QAM [facility] Administration Potassium Chloride 20 meq 11/23/24 08:00 11/28/24 09:16 Potassium Chloride 20 Meq Er Tablet PO 20 meq DAILY@0800 [facility] Administration Sevelamer Carbonate 800 mg 11/24/24 12:00 11/28/24 12:27 Sevelamer Carbonate 800 Mg Tablet PO 800 mg TIDWM [facility] Administration Tamsulosin HCl 0.4 mg 11/23/24 09:00 11/28/24 09:12 Tamsulosin Hcl 0.4 Mg Capsule PO 0.4 mg BID [facility] Administration Torsemide 100 mg 11/23/24 09:00 11/28/24 09:12 Torsemide 20 Mg Tablet PO 100 mg QAM [facility] Administration Warfarin Sodium 3 mg 11/26/24 17:45 11/27/24 16:49 Warfarin (*Pbkc) 3 Mg Tablet PO 3 mg DAILY@1700 ASHLEY Administration Radiology Results: ITS Impressions Chest CT 11/22/24 19:18 IMPRESSION: Interval development of a left lower lobe infiltrate with increased left-sided pleural effusion, as detailed above. Redemonstration of mediastinal lymphadenopathy. Abdomen/Pelvis CT 11/23/24 20:48 IMPRESSION: Segmental left lower lobe atelectasis/consolidation. Large left pleural effusion. Cholelithiasis, without CT evidence of cholecystitis. Mild right hydronephrosis with ureteral stranding and inflammatory change of the urinary bladder, findings may represent cystitis with ascending infection. Inflamed fat-containing umbilical hernia. Moderate body wall edema. Abdomen X-Ray 11/24/24 13:45 IMPRESSION: NO ACUTE ABDOMINAL FINDINGS. No definite stones seen. Noncontrast CT is better for evaluation. Thoracentesis Ultrasound 11/26/24 15:38 Impression: Successful ultrasound guided thoracentesis. Plan: Follow-up chest radiograph will be obtained. Chest X-Ray 11/26/24 16:30 IMPRESSION: No pneumothorax following left-sided thoracentesis, as detailed above. Labs Labs: Laboratory Results - last 24 hr 11/27/24 11/27/24 11/27/24 15:47 17:10 19:57 WBC RBC Hgb Hct MCV MCH MCHC RDW Plt Count MPV Immature Gran % (Auto) Neut % (Auto) Lymph % (Auto) Delta % (Auto) Eos % (Auto) Baso % (Auto) Lymph # (Auto) Delta # (Auto) Eos # (Auto) Baso # (Auto) Abs Immat Gran (auto) Absolute Neuts (auto) Absolute Nucleated RBC Nucleated RBC % PT INR APTT 103.1 H Sodium Potassium Chloride Carbon Dioxide Anion Gap BUN Creatinine Estim Creat Clear Calc Estimated GFR Glucose POC Capillary Glucose 138 H 113 H Calcium Phosphorus Albumin 11/27/24 11/27/24 11/27/24 20:34 21:48 22:26 WBC RBC Hgb Hct MCV MCH MCHC RDW Plt Count MPV Immature Gran % (Auto) Neut % (Auto) Lymph % (Auto) Delta % (Auto) Eos % (Auto) Baso % (Auto) Lymph # (Auto) Delta # (Auto) Eos # (Auto) Baso # (Auto) Abs Immat Gran (auto) Absolute Neuts (auto) Absolute Nucleated RBC Nucleated RBC % PT INR APTT 64.4 H Sodium Potassium Chloride Carbon Dioxide Anion Gap BUN Creatinine Estim Creat Clear Calc Estimated GFR Glucose POC Capillary Glucose 127 H 128 H Calcium Phosphorus Albumin 11/28/24 11/28/24 11/28/24 02:05 06:03 08:33 WBC 6.5 RBC 3.67 L Hgb 11.0 L Hct 33.1 L MCV 90.2 MCH 30.0 MCHC 33.2 RDW 13.7 Plt Count 164 MPV 10.9 H Immature Gran % (Auto) 1.5 H Neut % (Auto) 55.7 Lymph % (Auto) 22.1 Delta % (Auto) 15.1 H Eos % (Auto) 5.1 H Baso % (Auto) 0.5 Lymph # (Auto) 1.43 Delta # (Auto) 1.0 H Eos # (Auto) 0.3 Baso # (Auto) 0.0 Abs Immat Gran (auto) 0.10 H Absolute Neuts (auto) 3.6 Absolute Nucleated RBC 0.000 Nucleated RBC % 0.0 PT 18.1 H INR 1.4 APTT 139.8 H Sodium 130 L Potassium 3.5 Chloride 93 L Carbon Dioxide 25 Anion Gap 12 BUN 67 H Creatinine 8.15 H Estim Creat Clear Calc 12 Estimated GFR 7 L Glucose 252 H POC Capillary Glucose 186 H 254 H Calcium 8.1 L Phosphorus 6.0 H Albumin 2.9 L 11/28/24 11/28/24 11:52 12:28 WBC RBC Hgb Hct MCV MCH MCHC RDW Plt Count MPV Immature Gran % (Auto) Neut % (Auto) Lymph % (Auto) Delta % (Auto) Eos % (Auto) Baso % (Auto) Lymph # (Auto) Delta # (Auto) Eos # (Auto) Baso # (Auto) Abs Immat Gran (auto) Absolute Neuts (auto) Absolute Nucleated RBC Nucleated RBC % PT 17.6 H INR 1.4 APTT 56.0 H Sodium Potassium Chloride Carbon Dioxide Anion Gap BUN Creatinine Estim Creat Clear Calc Estimated GFR Glucose POC Capillary Glucose 173 H Calcium Phosphorus Albumin
[2024-11-28] MEDS: GENTAMICIN SULFATE 0.1% CR 15 GM TUBE 1 APPLIC TOPICAL (15:50)
[2024-11-28 16:00] VITALS: BP 139/84; PULSE 96; RESP 18; TEMP 36.2; O2SAT 97
[2024-11-28 17:12] LABS: Glucose Point of Care 177 mg/dl (65-105)
[2024-11-28] MEDS: WARFARIN (*PBKC) 1 MG TABLET PO (17:55)
[2024-11-28] MEDS: WARFARIN (*PBKC) 3 MG TABLET PO (17:55)
[2024-11-28 19:00] LABS: Partial Thromboplastin Time 117.1 Seconds (22.3-36.8)
[2024-11-28 19:20] LABS: MRSA (PCR) NOT DETECTED (NOT DETECTE)
[2024-11-28] MEDS: INSULIN HUMAN NPH (*BKC) 100 UNITS/ML 20 UNITS SUB-Q (20:04)
[2024-11-28 20:12] VITALS: BP 122/74; PULSE 98; RESP 20; TEMP 36.6; O2SAT 95
[2024-11-28] MEDS: HYDROcodone/acetaminophen (*CRX) 5-325 MG TABLET 1 TAB PO (20:14)
[2024-11-28 20:15] VITALS: PULSE 98
[2024-11-28] MEDS: amLODIPine BESYLATE 10 MG TABLET PO (20:15)
[2024-11-28] MEDS: FAMOTIDINE 20 MG TABLET 40 MG PO (20:15)
[2024-11-28 20:44] LABS: Glucose Point of Care 217 mg/dl (65-105)
[2024-11-28] MEDS: HEPARIN SOD/D5W 100 UNITS/ML 25,000 UNITS/250 ML BAG 14 UNITS IV CONT (21:48)
[2024-11-29] VITALS (9 sets, daily range): BP systolic 112–119; BP diastolic 69–73; PULSE 88–114; RESP 12–20; TEMP 36.2–36.6; O2SAT 96–98
[2024-11-29] MEDS: ALBUTEROL SULFATE (*SP) AEROSOL 1 PUFF 2 PUFF INHALATION (00:37)
[2024-11-29 01:31] LABS: Partial Thromboplastin Time 82.7 Seconds (22.3-36.8)
--- NOTE | 2024-11-29 01:44 | PC.NURSE ---
aPTT result for 0000 draw came back at 0140. Result was 82.7. Per heparin protocol no bolus is needed and no rate change needed at this time. Heparin drip continued at 14 mLs/hr.
[2024-11-29 04:36] LABS: Glucose Point of Care 67 mg/dl (65-105)
[2024-11-29] MEDS: LEVOTHYROXINE SODIUM 25 MCG TABLET PO (05:24)
[2024-11-29 05:30] LABS: Glucose Point of Care 80 mg/dl (65-105)
[2024-11-29 05:44] LABS: Glucose Point of Care 115 mg/dl (65-105)
[2024-11-29 08:17] LABS: INR 1.6; Prothrombin Time 19.5 Seconds (11.1-14.7)
[2024-11-29 08:24] LABS: Glucose Point of Care 162 mg/dl (65-105)
[2024-11-29] MEDS: INSULIN ASPART (*BKC) 100 UNITS/ML 8 UNITS SUB-Q (08:59)
--- NOTE | 2024-11-29 09:00 | P.PNNP_ITS ---
Progress Note: A&P Assessment and Plan (1) End stage renal disease: Code(s): N18.6 - End stage renal disease Status: Chronic Assessment and Plan: * continue nightly peritoneal dialysis treatments * follow electrolytes, volume status and clearance * primary serger = Dr Sharath Reyes * outpatient dialysis unit = [facility] (2) Pneumonia: Code(s): J18.9 - Pneumonia, unspecified organism Status: Acute Assessment and Plan: * presumed to contributing to shortness of breath * on antibiotics * follow culture data - negative to date (3) Pleural effusion, left: Code(s): J90 - Pleural effusion, not elsewhere classified Status: Acute Assessment and Plan: * possibly parapenumonic... * s/p thoracentesis (on 11/26) * pleural fluid cell count noted * pleural fluid cultures pending * suspect contributing to shortness of breath on presentation (4) Right flank pain: Code(s): R10.9 - Unspecified abdominal pain Status: Acute Assessment and Plan: * noted on admission with radiation to groin * admission CT showed mild right hydronephrosis with ureteral stranding and inflammatory changes the urinary bladder which may represent cystitis with ascending infection * suspect he may have passed a kindey stone * continue supportive therapy (5) Hypertension: Code(s): I10 - Essential (primary) hypertension Status: Chronic Assessment and Plan: * reasonable control at this time * follow trend of hemodynamics (6) Anemia: Code(s): D64.9 - Anemia, unspecified Status: Chronic Assessment and Plan: * due to ESRD * H/H at goal if not supratherapeutic * resume CORRINE if Hgb < 10 (7) Obstructive sleep apnea: Code(s): G47.33 - Obstructive sleep apnea (adult) (pediatric) Status: Chronic Assessment and Plan: * continue nightly CPAP use (8) Type 1 diabetes mellitus with hyperglycemia: Code(s): E10.65 - Type 1 diabetes mellitus with hyperglycemia Status: Acute Assessment and Plan: * follow accu-cheks * glycemic control per hospitalist Will continue to follow. L Subjective Date/time seen: 11/29/24 09:00 Interval history: Follow-up for end stage renal disease on peritoneal dialysis. Tolerated peritoneal dialysis treatment overnight without any issue or problems ([facility] supervised and seen at 8:50AM); respiratory status continues to do well; no events overnight or earlier this morning; awaiting therapeutic INR. Exam 2 Narrative: General: WD/WN male in NAD Heart: normal S1 and S2; no rub Lungs: clear anteriorly, decreased at bases Abdomen: soft, nontender, nondistended, positive bowel sounds Extremities: no cyanosis or clubbing; trace - 1+ edema (chronic) Skin: warm and dry Objective Data Vital Signs Vital Signs: Vital Signs Temp Pulse Resp BP Pulse Ox O2 Del Method 11/29/24 07:58 97.5 F L 114 H 18 112/73 11/29/24 03:46 97.8 F 105 H 20 119/73 98 11/29/24 00:46 88 12 11/29/24 00:45 12 BiPAP 11/29/24 00:40 89 14 11/28/24 20:15 98 11/28/24 20:12 97.8 F 98 20 122/74 95 11/28/24 19:56 Room Air 11/28/24 16:00 97.2 F L 96 18 139/84 97 Intake/Output Intake/Output: Intake & Output 11/26/24 11/27/24 11/28/24 11/29/24 23:59 23:59 23:59 23:59 Intake Total 2332.7 3074.7 1240.3 2831 Output Total 557 477 5631 200 Balance 1432.7 2774.7 -1208.7 2631 Meds/Results Medications: Active Medications Generic Name Dose Route Start Last Admin Trade Name Freq PRN Reason Stop Dose Admin Hydrocodone Bitart/Acetaminophen 1 tab 11/24/24 12:45 11/28/24 20:14 Hydrocodone/Acetaminophen (*Crx) 5-325 Mg Tablet PO 1 tab Q4H PRN Administration Pain Rated 4-6 Albuterol 2 puff 11/23/24 01:57 11/29/24 00:37 Albuterol Sulfate (*Sp) Aerosol 1 Puff INHALATION 2 puff QID PRN Administration shortness of breath or wheezing Alprazolam 0.25 mg 11/25/24 12:45 11/26/24 01:16 Alprazolam (*Crx) 0.25 Mg Tablet PO 0.25 mg Q8HR PRN Administration Anxiety Amlodipine Besylate 10 mg 11/23/24 21:00 11/28/24 20:15 Amlodipine Besylate 10 Mg Tablet PO 10 mg HS ASHLEY Administration Aspirin 81 mg 11/23/24 09:00 11/29/24 09:03 Aspirin 81 Mg Enteric Tablet PO 81 mg QAM ASHLEY Administration Atorvastatin Calcium 80 mg 11/23/24 09:00 11/29/24 09:02 Atorvastatin 40 Mg Tablet PO 80 mg DAILY ASHLEY Administration Calcitriol 0.25 mcg 11/23/24 09:00 11/29/24 09:02 Calcitriol 0.25 Mcg Capsule PO 0.25 mcg QAM ASHLEY Administration Calcium Acetate 667 mg 11/23/24 09:00 11/29/24 13:03 Calcium Acetate 667 Mg Tablet PO 667 mg QID ASHLEY Administration Colchicine 0.6 mg 11/25/24 09:00 11/29/24 09:02 Colchicine 0.6 Mg Tablet PO 0.6 mg MoWeFr@0900 ASHLEY Administration Cyclobenzaprine HCl 5 mg 11/23/24 01:57 11/23/24 16:25 Cyclobenzaprine Hcl 5 Mg Tablet PO 5 mg TID PRN Administration muscle spasm Dextrose 12.5 gm 11/22/24 20:30 11/26/24 06:28 Dextrose 50% 25 Gm/50 Ml Syringe IV PUSH 12.5 gm PRN PRN Administration Hypoglycemia Protocol Ezetimibe 10 mg 11/23/24 09:00 11/29/24 09:01 Ezetimibe 10 Mg Tablet PO 10 mg DAILY ASHLEY Administration Ergocalciferol 50,000 units 11/25/24 09:00 11/25/24 12:25 Ergocalciferol 50,000 Units Capsule PO 50,000 units Mo@0900 ASHLEY Administration Famotidine 40 mg 11/23/24 21:00 11/28/24 20:15 Famotidine 20 Mg Tablet PO 40 mg HS ASHLEY Administration Fish Oil 1 gm 11/23/24 09:00 11/29/24 13:03 [place] 3 Polyunsat Fatty Acids 1 Gm Cap PO 1 gm QID ASHLEY Administration Gentamicin Sulfate 1 applic 11/23/24 21:00 11/28/24 15:50 Gentamicin Sulfate 0.1% Cr 15 Gm Tube TOPICAL 1 applic HS ASHLEY Administration Guaifenesin/Dextromethorphan 10 ml 11/22/24 23:50 11/27/24 15:48 Guaifenesin/Dextromethorphan 10 Ml Udc PO 10 ml BID PRN Administration Cough Heparin Sodium (Porcine) 7,500 units 11/27/24 07:19 Heparin Sodium 5,000 Units/Ml Vial IV PUSH PRN PRN aPTT less than 55 seconds Heparin Sodium (Porcine) 3,500 units 11/27/24 07:19 11/28/24 13:12 Heparin Sodium 5,000 Units/Ml Vial IV PUSH 3,500 units PRN PRN Administration aPTT 55 - 70 seconds Dextrose 1,000 mls @ 100 mls/hr 11/22/24 20:30 Dextrose 5% 1,000 Ml IVPB PRN PRN Hypoglycemia Protocol Heparin Sodium/Dextrose 25,000 units in 250 mls @ 14 mls/hr 11/27/24 07:20 11/28/24 21:48 Heparin Sodium/D5w 100 Units/Ml IV CONT 1,400 units/hr .[id number] ASHLEY 14 mls/hr Administration Protocol 1,400 UNITS/HR Insulin Aspart 2 - 5 units 11/23/24 08:00 11/29/24 12:47 Insulin Aspart (*Bkc) 100 Units/Ml SUB-Q Not Given TIDWM [facility] Protocol Insulin Aspart 1 - 2 units 11/22/24 21:00 11/28/24 20:02 Insulin Aspart (*Bkc) 100 Units/Ml SUB-Q 1 units HS [facility] Administration Protocol Insulin Aspart 8 units 11/27/24 09:40 11/29/24 12:54 Insulin Aspart (*Bkc) 100 Units/Ml SUB-Q Not Given TIDWM [facility] Insulin Glargine 20 units 11/28/24 09:00 11/29/24 09:01 Insulin Glargine (*Bkc) 100 Units/Ml SUB-Q 20 units DAILY@0900 [facility] Administration Insulin Human NPH 20 units 11/28/24 21:00 11/28/24 20:04 Insulin Human Nph (*Bkc) 100 Units/Ml SUB-Q 20 units HS [facility] Administration Levothyroxine Sodium 25 mcg 11/23/24 06:30 11/29/24 05:24 Levothyroxine Sodium 25 Mcg Tablet PO 25 mcg DAILY@0630 [facility] Administration Lidocaine 1 patch 11/23/24 09:00 11/29/24 12:47 Lidocaine 5% Patch TRANSDERM Not Given DAILY [facility] Linaclotide 72 mcg 11/23/24 01:57 Linaclotide 72 Mcg Capsule PO DAILY PRN Diarrhea Loratadine 10 mg 11/23/24 09:00 11/29/24 09:03 Loratadine 10 Mg Tablet PO 10 mg QAM [facility] Administration Metoprolol Tartrate 50 mg 11/22/24 23:40 11/29/24 09:02 Metoprolol Tartrate 50 Mg Tab PO 50 mg Q12HR [facility] Administration Morphine Sulfate 2 mg 11/23/24 17:27 11/24/24 08:09 Morphine Sulfate (*Crx) 2 Mg/Ml Inj IV PUSH 2 mg Q4H PRN Administration Pain Rated 7-10 Nitroglycerin 0.4 mg 11/23/24 09:23 Nitroglycerin Sl 0.4 Mg Tablet SUBLINGUAL Q5MIN PRN Chest Pain Pantoprazole Sodium 40 mg 11/23/24 09:00 11/29/24 09:02 Pantoprazole 40 Mg Tablet PO 40 mg QAM [facility] Administration Potassium Chloride 20 meq 11/23/24 08:00 11/29/24 09:03 Potassium Chloride 20 Meq Er Tablet PO 20 meq DAILY@0800 [facility] Administration Sevelamer Carbonate 800 mg 11/24/24 12:00 11/29/24 13:03 Sevelamer Carbonate 800 Mg Tablet PO 800 mg TIDWM [facility] Administration Sodium Chloride 1 spray 11/28/24 15:27 Saline 0.65% Adrian Soln 44 Ml Btl NASAL Q6HR PRN Congestion Tamsulosin HCl 0.4 mg 11/23/24 09:00 11/29/24 09:03 Tamsulosin Hcl 0.4 Mg Capsule PO 0.4 mg BID ASHLEY Administration Torsemide 100 mg 11/23/24 09:00 11/29/24 09:02 Torsemide 20 Mg Tablet PO 100 mg QAM [facility] Administration Warfarin Sodium 3 mg 11/26/24 17:45 11/28/24 17:55 Warfarin (*Pbkc) 3 Mg Tablet PO 3 mg DAILY@1700 [facility] Administration Radiology Results: ITS Impressions Chest CT 11/22/24 19:18 IMPRESSION: Interval development of a left lower lobe infiltrate with increased left-sided pleural effusion, as detailed above. Redemonstration of mediastinal lymphadenopathy. Abdomen/Pelvis CT 11/23/24 20:48 IMPRESSION: Segmental left lower lobe atelectasis/consolidation. Large left pleural effusion. Cholelithiasis, without CT evidence of cholecystitis. Mild right hydronephrosis with ureteral stranding and inflammatory change of the urinary bladder, findings may represent cystitis with ascending infection. Inflamed fat-containing umbilical hernia. Moderate body wall edema. Abdomen X-Ray 11/24/24 13:45 IMPRESSION: NO ACUTE ABDOMINAL FINDINGS. No definite stones seen. Noncontrast CT is better for evaluation. Thoracentesis Ultrasound 11/26/24 15:38 Impression: Successful ultrasound guided thoracentesis. Plan: Follow-up chest radiograph will be obtained. Labs Labs: Laboratory Tests 11/28/24 06:03 11/28/24 06:03 11/29/24 07:31 PT 19.5 H INR 1.6 Microbiology 11/26/24 14:55 Pleural Fluid Anaerobic Culture - Preliminary 11/26/24 14:55 Pleural Fluid Aerobic Culture - Preliminary
[2024-11-29] MEDS: INSULIN GLARGINE (*BKC) 100 UNITS/ML 20 UNITS SUB-Q (09:01)
[2024-11-29] MEDS: EZETIMIBE 10 MG TABLET PO (09:01)
[2024-11-29] MEDS: CALCIUM ACETATE 667 MG TABLET PO ×4 (09:02→21:04)
[2024-11-29] MEDS: METOPROLOL TARTRATE 50 MG TAB PO ×2 (09:02→21:05)
[2024-11-29] MEDS: ATORVASTATIN 40 MG TABLET 80 MG PO (09:02)
[2024-11-29] MEDS: TORSEMIDE 20 MG TABLET 100 MG PO (09:02)
[2024-11-29] MEDS: PANTOPRAZOLE 40 MG TABLET PO (09:02)
[2024-11-29] MEDS: COLCHICINE 0.6 MG TABLET PO (09:02)
[2024-11-29] MEDS: SEVELAMER CARBONATE 800 MG TABLET PO ×3 (09:02→18:04)
[2024-11-29] MEDS: calcitrioL 0.25 MCG CAPSULE PO (09:02)
[2024-11-29] MEDS: AMOXICILLIN/CLAVULANATE K 500-125 MG TAB 1 TABLET PO (09:03)
[2024-11-29] MEDS: POTASSIUM CHLORIDE 20 MEQ ER TABLET PO (09:03)
[2024-11-29] MEDS: LORATADINE 10 MG TABLET PO (09:03)
[2024-11-29] MEDS: OMEGA 3 POLYUNSAT FATTY ACIDS 1 GM CAP PO ×4 (09:03→21:05)
[2024-11-29] MEDS: ASPIRIN 81 MG ENTERIC TABLET PO (09:03)
[2024-11-29] MEDS: TAMSULOSIN HCL 0.4 MG CAPSULE PO ×2 (09:03→18:04)
[2024-11-29 12:16] LABS: Glucose Point of Care 81 mg/dl (65-105)
--- NOTE | 2024-11-29 13:38 | PM.IMPN ---
Progress Note: A&P Assessment and Plan (1) Pleural effusion, left: Code(s): J90 - Pleural effusion, not elsewhere classified Status: Acute Assessment and Plan: Left pleural effusion noted on imaging. Thoracentesis has been planned.however cannot perform due to anticoagulant use. Warfarin held Thoracentesis performed 11/26: 21K RBC and 649 WBC almost all lymphocytes. Other studies pending. Pleural Cx NGTD Probably related to PD INR still subtherapeutic at 1.4 today. Continue bridging Heparin. Continue Warfarin Follow up on pleural studies and cultures (2) Pneumonia: Code(s): J18.9 - Pneumonia, unspecified organism Status: Acute Assessment and Plan: Left-sided pneumonia with left-sided pleural effusion: Ceftriaxone and azithromycin scheduled for pneumonia. Thoracentesis ordered as above. Changed to Doxycycline and Augmentin and completed Doxy treatment. (3) End-stage renal disease on peritoneal dialysis: Code(s): N18.6 - End stage renal disease; Z99.2 - Dependence on renal dialysis Status: Acute Assessment and Plan: Nephrology consulted and appreciate their input. Renal diabetic diet. Continue PD to control fluid status. Plan Elevated troponin - Trop to 0.25 but flat. EKG showing AFlutter/tachycardia (HR 107) with Left BBB but no change from EKG in July. Echo in Aug 2024 showing EF 25%, and indeterminate diastolic function. Elevated Trop probably related to tachycardia associated with his low EF. [place] Type II PR from demand ischemia. CAD status post CABG (BRICE-LAD, SVG-OM, SVG to rPDA) in 09/2023 at [facility]. Continue Lopressor, Lipitor and ASA. Right flank pain - radiated to groin 11/23/2024. CT showed mild right hydronephrosis with ureteral stranding and inflammatory changes the urinary bladder which may represent cystitis with ascending infection. Likely passed some stone. Urology follow-up as an outpatient basis. This pain has resolved now. Inflammatory change around umbilical hernia clinically nontender in this area likely chronic finding Mechanical aortic valve (OnX) -dose warfarin to have INR goal of 1.5-2.5. As above. Paroxysmal Atrial fibrillation - rate better controlled. DVT prophylaxis Heparin Code status Full code. Subjective Date/time seen: 11/29/24 13:38 Interval history: 54yo male with an extensive medical history including CAD status post CABG, peritoneal dialysis, obesity, insulin-dependent diabetes mellitus, atrial fibrillation, mechanical aortic valve replacement on warfarin, who presents to [place] ER with complaint of shortness of breath worsening for 6 days. No problems overnight. No chest pain or shortness of breath. He is having cough with pain in the left mid back the site of the thoracentesis. He has had this for the past few days without change. It is painful to palpate that area. cough productive white yellow sputum Exam Narrative: AF 97.5 112/73 96 18 98% ra Gen - NARD Chest -L>R bibasilar crackles. CV - RRR with mechanical S2 Abd -soft. Obese. Nontender. Left lower quadrant PD catheter noted. Back - palpable pain around the site of the thoracentesis. Small bruise noted at the site Ext -trace-1+ pedal edema Neuro - Alert and appropriate Psych - Nml mood and affect Skin - Warm and dry Objective Data Vital Signs Vital Signs: Vital Signs - 24 hr 11/28/24 16:00 11/28/24 19:56 11/28/24 20:12 Temperature 97.2 F L 97.8 F Pulse Rate 96 98 Respiratory Rate 18 20 Blood Pressure 139/84 122/74 Pulse Oximetry 97 95 Oxygen Delivery Room Air 11/28/24 20:15 11/29/24 00:40 11/29/24 00:45 Temperature Pulse Rate 98 89 Respiratory Rate 14 12 Blood Pressure Pulse Oximetry Oxygen Delivery BiPAP 11/29/24 00:46 11/29/24 03:46 11/29/24 07:58 Temperature 97.8 F 97.5 F L Pulse Rate 88 105 H 114 H Respiratory Rate 12 20 18 Blood Pressure 119/73 112/73 Pulse Oximetry 98 Oxygen Delivery 11/29/24 09:02 Temperature Pulse Rate 96 Respiratory Rate Blood Pressure Pulse Oximetry Oxygen Delivery Intake/Output Intake/Output: Intake & Output 11/26/24 11/27/24 11/28/24 11/29/24 23:59 23:59 23:59 23:59 Intake Total 2332.7 3074.7 1240.3 2831 Output Total 770 879 3303 200 Balance 1432.7 2774.7 -1208.7 2631 Meds/Results Medications: Active Medications Generic Name Dose Route Start Last Admin Trade Name Freq PRN Reason Stop Dose Admin Hydrocodone Bitart/Acetaminophen 1 tab 11/24/24 12:45 11/28/24 20:14 Hydrocodone/Acetaminophen (*Crx) 5-325 Mg Tablet PO 1 tab Q4H PRN Administration Pain Rated 4-6 Albuterol 2 puff 11/23/24 01:57 11/29/24 00:37 Albuterol Sulfate (*Sp) Aerosol 1 Puff INHALATION 2 puff QID PRN Administration shortness of breath or wheezing Alprazolam 0.25 mg 11/25/24 12:45 11/26/24 01:16 Alprazolam (*Crx) 0.25 Mg Tablet PO 0.25 mg Q8HR PRN Administration Anxiety Amlodipine Besylate 10 mg 11/23/24 21:00 11/28/24 20:15 Amlodipine Besylate 10 Mg Tablet PO 10 mg HS ASHLEY Administration Aspirin 81 mg 11/23/24 09:00 11/29/24 09:03 Aspirin 81 Mg Enteric Tablet PO 81 mg QAM ASHLEY Administration Atorvastatin Calcium 80 mg 11/23/24 09:00 11/29/24 09:02 Atorvastatin 40 Mg Tablet PO 80 mg DAILY ASHLEY Administration Calcitriol 0.25 mcg 11/23/24 09:00 11/29/24 09:02 Calcitriol 0.25 Mcg Capsule PO 0.25 mcg QAM ASHLEY Administration Calcium Acetate 667 mg 11/23/24 09:00 11/29/24 13:03 Calcium Acetate 667 Mg Tablet PO 667 mg QID ASHLEY Administration Colchicine 0.6 mg 11/25/24 09:00 11/29/24 09:02 Colchicine 0.6 Mg Tablet PO 0.6 mg MoWeFr@0900 ASHLEY Administration Cyclobenzaprine HCl 5 mg 11/23/24 01:57 11/23/24 16:25 Cyclobenzaprine Hcl 5 Mg Tablet PO 5 mg TID PRN Administration muscle spasm Dextrose 12.5 gm 11/22/24 20:30 11/26/24 06:28 Dextrose 50% 25 Gm/50 Ml Syringe IV PUSH 12.5 gm PRN PRN Administration Hypoglycemia Protocol Ezetimibe 10 mg 11/23/24 09:00 11/29/24 09:01 Ezetimibe 10 Mg Tablet PO 10 mg DAILY ASHLEY Administration Ergocalciferol 50,000 units 11/25/24 09:00 11/25/24 12:25 Ergocalciferol 50,000 Units Capsule PO 50,000 units Mo@0900 ASHLEY Administration Famotidine 40 mg 11/23/24 21:00 11/28/24 20:15 Famotidine 20 Mg Tablet PO 40 mg HS [facility] Administration Fish Oil 1 gm 11/23/24 09:00 11/29/24 13:03 [place] 3 Polyunsat Fatty Acids 1 Gm Cap PO 1 gm QID ASHLEY Administration Gentamicin Sulfate 1 applic 11/23/24 21:00 11/28/24 15:50 Gentamicin Sulfate 0.1% Cr 15 Gm Tube TOPICAL 1 applic HS ASHLEY Administration Guaifenesin/Dextromethorphan 10 ml 11/22/24 23:50 11/27/24 15:48 Guaifenesin/Dextromethorphan 10 Ml Udc PO 10 ml BID PRN Administration Cough Heparin Sodium (Porcine) 7,500 units 11/27/24 07:19 Heparin Sodium 5,000 Units/Ml Vial IV PUSH PRN PRN aPTT less than 55 seconds Heparin Sodium (Porcine) 3,500 units 11/27/24 07:19 11/28/24 13:12 Heparin Sodium 5,000 Units/Ml Vial IV PUSH 3,500 units PRN PRN Administration aPTT 55 - 70 seconds Dextrose 1,000 mls @ 100 mls/hr 11/22/24 20:30 Dextrose 5% 1,000 Ml IVPB PRN PRN Hypoglycemia Protocol Heparin Sodium/Dextrose 25,000 units in 250 mls @ 14 mls/hr 11/27/24 07:20 11/28/24 21:48 Heparin Sodium/D5w 100 Units/Ml IV CONT 1,400 units/hr .[id number] ASHLEY 14 mls/hr Administration Protocol 1,400 UNITS/HR Insulin Aspart 2 - 5 units 11/23/24 08:00 11/29/24 12:47 Insulin Aspart (*Bkc) 100 Units/Ml SUB-Q Not Given TIDWM [facility] Protocol Insulin Aspart 1 - 2 units 11/22/24 21:00 11/28/24 20:02 Insulin Aspart (*Bkc) 100 Units/Ml SUB-Q 1 units HS [facility] Administration Protocol Insulin Aspart 8 units 11/27/24 09:40 11/29/24 12:54 Insulin Aspart (*Bkc) 100 Units/Ml SUB-Q Not Given TIDWM [facility] Insulin Glargine 20 units 11/28/24 09:00 11/29/24 09:01 Insulin Glargine (*Bkc) 100 Units/Ml SUB-Q 20 units DAILY@0900 [facility] Administration Insulin Human NPH 20 units 11/28/24 21:00 11/28/24 20:04 Insulin Human Nph (*Bkc) 100 Units/Ml SUB-Q 20 units HS [facility] Administration Levothyroxine Sodium 25 mcg 11/23/24 06:30 11/29/24 05:24 Levothyroxine Sodium 25 Mcg Tablet PO 25 mcg DAILY@0630 [facility] Administration Lidocaine 1 patch 11/23/24 09:00 11/29/24 12:47 Lidocaine 5% Patch TRANSDERM Not Given DAILY [facility] Linaclotide 72 mcg 11/23/24 01:57 Linaclotide 72 Mcg Capsule PO DAILY PRN Diarrhea Loratadine 10 mg 11/23/24 09:00 11/29/24 09:03 Loratadine 10 Mg Tablet PO 10 mg QAM [facility] Administration Metoprolol Tartrate 50 mg 11/22/24 23:40 11/29/24 09:02 Metoprolol Tartrate 50 Mg Tab PO 50 mg Q12HR [facility] Administration Morphine Sulfate 2 mg 11/23/24 17:27 11/24/24 08:09 Morphine Sulfate (*Crx) 2 Mg/Ml Inj IV PUSH 2 mg Q4H PRN Administration Pain Rated 7-10 Nitroglycerin 0.4 mg 11/23/24 09:23 Nitroglycerin Sl 0.4 Mg Tablet SUBLINGUAL Q5MIN PRN Chest Pain Pantoprazole Sodium 40 mg 11/23/24 09:00 11/29/24 09:02 Pantoprazole 40 Mg Tablet PO 40 mg QAM [facility] Administration Potassium Chloride 20 meq 11/23/24 08:00 11/29/24 09:03 Potassium Chloride 20 Meq Er Tablet PO 20 meq DAILY@0800 [facility] Administration Sevelamer Carbonate 800 mg 11/24/24 12:00 11/29/24 13:03 Sevelamer Carbonate 800 Mg Tablet PO 800 mg TIDWM [facility] Administration Sodium Chloride 1 spray 11/28/24 15:27 Saline 0.65% Adrian Soln 44 Ml Btl NASAL Q6HR PRN Congestion Tamsulosin HCl 0.4 mg 11/23/24 09:00 11/29/24 09:03 Tamsulosin Hcl 0.4 Mg Capsule PO 0.4 mg BID ASHLEY Administration Torsemide 100 mg 11/23/24 09:00 11/29/24 09:02 Torsemide 20 Mg Tablet PO 100 mg QAM ASHLEY Administration Warfarin Sodium 3 mg 11/26/24 17:45 11/28/24 17:55 Warfarin (*Pbkc) 3 Mg Tablet PO 3 mg DAILY@1700 ASHLEY Administration Radiology Results: ITS Impressions Chest CT 11/22/24 19:18 IMPRESSION: Interval development of a left lower lobe infiltrate with increased left-sided pleural effusion, as detailed above. Redemonstration of mediastinal lymphadenopathy. Abdomen/Pelvis CT 11/23/24 20:48 IMPRESSION: Segmental left lower lobe atelectasis/consolidation. Large left pleural effusion. Cholelithiasis, without CT evidence of cholecystitis. Mild right hydronephrosis with ureteral stranding and inflammatory change of the urinary bladder, findings may represent cystitis with ascending infection. Inflamed fat-containing umbilical hernia. Moderate body wall edema. Abdomen X-Ray 11/24/24 13:45 IMPRESSION: NO ACUTE ABDOMINAL FINDINGS. No definite stones seen. Noncontrast CT is better for evaluation. Thoracentesis Ultrasound 11/26/24 15:38 Impression: Successful ultrasound guided thoracentesis. Plan: Follow-up chest radiograph will be obtained. Chest X-Ray 11/26/24 16:30 IMPRESSION: No pneumothorax following left-sided thoracentesis, as detailed above. Labs Labs: Laboratory Results - last 24 hr 11/28/24 11/28/24 11/28/24 17:09 18:03 18:23 PT INR APTT 117.1 H POC Capillary Glucose 177 H Nasal MRSA (PCR) Not detected 11/28/24 11/29/24 11/29/24 19:58 00:57 03:57 PT INR APTT 82.7 H POC Capillary Glucose 217 H 80 Nasal MRSA (PCR) 11/29/24 11/29/24 11/29/24 04:31 05:22 07:31 PT 19.5 H INR 1.6 APTT 82.0 H POC Capillary Glucose 67 115 H Nasal MRSA (PCR) 11/29/24 11/29/24 08:09 12:09 PT INR APTT POC Capillary Glucose 162 H 81 Nasal MRSA (PCR)
[2024-11-29] MEDS: WARFARIN (*PBKC) 3 MG TABLET PO ×2 (14:18→18:06)
[2024-11-29] MEDS: HEPARIN SOD/D5W 100 UNITS/ML 25,000 UNITS/250 ML BAG 14 UNITS IV CONT (15:50)
[2024-11-29 17:04] LABS: Glucose Point of Care 149 mg/dl (65-105)
[2024-11-29 20:48] LABS: Glucose Point of Care 246 mg/dl (65-105)
[2024-11-29] MEDS: amLODIPine BESYLATE 10 MG TABLET PO (21:05)
[2024-11-29] MEDS: FAMOTIDINE 20 MG TABLET 40 MG PO (21:05)
[2024-11-29] MEDS: INSULIN HUMAN NPH (*BKC) 100 UNITS/ML 16 UNITS SUB-Q (21:06)
[2024-11-29] MEDS: INSULIN ASPART (*BKC) 100 UNITS/ML SUB-Q (21:07)
[2024-11-30] VITALS (7 sets, daily range): BP systolic 108–125; BP diastolic 66–74; PULSE 86–110; RESP 16–18; TEMP 36.3–36.9; O2SAT 96–98
[2024-11-30] MEDS: LEVOTHYROXINE SODIUM 25 MCG TABLET PO (06:05)
[2024-11-30 06:28] LABS: Albumin Level 3.1 g/dL (3.5-5.1); Anion Gap 12 mmol/L (4-12); Blood Urea Nitrogen 68 mg/dL (9-20); Calcium 8.4 mg/dL (8.4-10.2); Carbon Dioxide 25 mmol/L (22-30); Chloride 93 mmol/L (98-107); Estimated CRCL calculation 12 ml/min; Estimated Glomerular Filt Rate 7; Glucose 293 mg/dL (65-110); Magnesium 1.8 mg/dL (1.6-2.3); Phosphorus 5.9 mg/dL (2.5-4.5); Potassium 3.6 mmol/L (3.4-5.0); Sodium 130 mmol/L (137-145)
[2024-11-30 06:33] LABS: INR 1.9; Prothrombin Time 22.7 Seconds (11.1-14.7)
[2024-11-30 06:35] LABS: Basophils Percent Auto 0.4 % (0.2-1.2); Eosinophils Absolute Auto 0.2 K/mm3 (0-0.3); Eosinophils Percent Auto 4.8 % (0-4.4); Hematocrit 31.8 % (42.0-52.0); Hemoglobin 10.5 g/dL (14.0-18.0); Immature Granulocyte Absolute 0.09 K/mm3 (0.00-0.031); Immature Granulocyte Percent A 1.8 % (0-0.5); Lymphocytes Absolute Auto 1.25 K/mm3 (0.9-3.2); Lymphocytes Percent Auto 25.1 % (18.3-44.2); Mean Corpuscular Hemoglobin 30.3 pg (26-34); Mean Corpuscular Volume 91.9 fl (80-100); Mean Platelet Volume 10.6 fl (7.4-10.4); Monocytes Absolute Auto 0.8 K/mm3 (0.1-0.6); Monocytes Percent Auto 16.9 % (2.6-8.5); Neutrophils Absolute Auto 2.5 K/mm3 (1.3-6.7); Platelet Count Result 156 k/mm3 (150-375); Red Blood Count 3.46 M/mm3 (4.6-6.20); Red Cell Distribution Width 14.1 % (11.5-14.5)
[2024-11-30 06:35] LABS: Partial Thromboplastin Time 87.4 Seconds (22.3-36.8)
[2024-11-30 08:14] LABS: Glucose Point of Care 273 mg/dl (65-105)
[2024-11-30] MEDS: TAMSULOSIN HCL 0.4 MG CAPSULE PO ×2 (08:44→17:52)
[2024-11-30] MEDS: SEVELAMER CARBONATE 800 MG TABLET PO ×3 (08:44→17:51)
[2024-11-30] MEDS: TORSEMIDE 20 MG TABLET 100 MG PO (08:44)
[2024-11-30] MEDS: PANTOPRAZOLE 40 MG TABLET PO (08:44)
[2024-11-30] MEDS: POTASSIUM CHLORIDE 20 MEQ ER TABLET PO (08:44)
[2024-11-30] MEDS: EZETIMIBE 10 MG TABLET PO (08:44)
[2024-11-30] MEDS: LORATADINE 10 MG TABLET PO (08:44)
[2024-11-30] MEDS: calcitrioL 0.25 MCG CAPSULE PO (08:45)
[2024-11-30] MEDS: INSULIN GLARGINE (*BKC) 100 UNITS/ML 20 UNITS SUB-Q (08:45)
[2024-11-30] MEDS: OMEGA 3 POLYUNSAT FATTY ACIDS 1 GM CAP PO ×4 (08:45→20:44)
[2024-11-30] MEDS: CALCIUM ACETATE 667 MG TABLET PO ×4 (08:45→20:43)
[2024-11-30] MEDS: ATORVASTATIN 40 MG TABLET 80 MG PO (08:45)
[2024-11-30] MEDS: ASPIRIN 81 MG ENTERIC TABLET PO (08:45)
[2024-11-30] MEDS: METOPROLOL TARTRATE 50 MG TAB PO ×2 (08:45→21:21)
[2024-11-30] MEDS: INSULIN ASPART (*BKC) 100 UNITS/ML SUB-Q ×3 (08:47→20:55)
[2024-11-30] MEDS: INSULIN ASPART (*BKC) 100 UNITS/ML 6 UNITS SUB-Q ×3 (08:47→17:51)
[2024-11-30] MEDS: HEPARIN SOD/D5W 100 UNITS/ML 25,000 UNITS/250 ML BAG 14 UNITS IV CONT (08:51)
--- NOTE | 2024-11-30 11:08 | P.PNNP_ITS ---
Progress Note: A&P Assessment and Plan (1) End stage renal disease: Code(s): N18.6 - End stage renal disease Status: Chronic Assessment and Plan: * continue nightly peritoneal dialysis treatments * follow electrolytes, volume status and clearance * primary manager animal = Dr Sharath Reyes * outpatient dialysis unit = [facility] (2) Pneumonia: Code(s): J18.9 - Pneumonia, unspecified organism Status: Acute Assessment and Plan: * presumed to contributing to shortness of breath * on antibiotics * follow culture data - negative to date (3) Pleural effusion, left: Code(s): J90 - Pleural effusion, not elsewhere classified Status: Acute Assessment and Plan: * possibly parapenumonic... * s/p thoracentesis (on 11/26) * pleural fluid cell count noted * pleural fluid cultures pending * suspect contributing to shortness of breath on presentation (4) Right flank pain: Code(s): R10.9 - Unspecified abdominal pain Status: Acute Assessment and Plan: * noted on admission with radiation to groin * admission CT showed mild right hydronephrosis with ureteral stranding and inflammatory changes the urinary bladder which may represent cystitis with ascending infection * suspect he may have passed a kindey stone * continue supportive therapy (5) Hypertension: Code(s): I10 - Essential (primary) hypertension Status: Chronic Assessment and Plan: * reasonable control at this time * follow trend of hemodynamics (6) Anemia: Code(s): D64.9 - Anemia, unspecified Status: Chronic Assessment and Plan: * due to ESRD * H/H at goal if not supratherapeutic * resume CORRINE if Hgb < 10 (7) Obstructive sleep apnea: Code(s): G47.33 - Obstructive sleep apnea (adult) (pediatric) Status: Chronic Assessment and Plan: * continue nightly CPAP use (8) Type 1 diabetes mellitus with hyperglycemia: Code(s): E10.65 - Type 1 diabetes mellitus with hyperglycemia Status: Acute Assessment and Plan: * follow accu-cheks * glycemic control per hospitalist Will continue to follow. L Subjective Date/time seen: 11/30/24 11:08 Interval history: Follow-up for end stage renal disease on peritoneal dialysis. Appears to be doing reasonably well; peritoneal dialysis treatment uneventful and tolerated reasonably well; breathing/respiratory status remains stable if not continuing to improve; no other issues/events overnight or earlier this morning; remains on heparin gtt. Exam 2 Narrative: General: WD/WN male in NAD Heart: normal S1 and S2; no rub Lungs: clear anteriorly, decreased at bases Abdomen: soft, nontender, nondistended, positive bowel sounds Extremities: no cyanosis or clubbing; trace - 1+ edema (chronic) Skin: warm and intact Objective Data Vital Signs Vital Signs: Vital Signs Temp Pulse Resp BP Pulse Ox O2 Del Method 11/30/24 08:45 88 11/30/24 05:17 97.4 F L 98 18 118/74 96 11/29/24 21:05 107 H 11/29/24 21:00 Room Air 11/29/24 20:48 97.2 F L 107 H 18 118/69 96 11/29/24 14:00 97.3 F L 113 H 18 118/70 97 Intake/Output Intake/Output: Intake & Output 11/27/24 11/28/24 11/29/24 11/30/24 23:59 23:59 23:59 23:59 Intake Total 3074.7 1240.3 3671 1458.2 Output Total 300 2449 200 930 Balance 2774.7 -1208.7 3471 528.2 Meds/Results Medications: Active Medications Generic Name Dose Route Start Last Admin Trade Name Freq PRN Reason Stop Dose Admin Hydrocodone Bitart/Acetaminophen 1 tab 11/24/24 12:45 11/28/24 20:14 Hydrocodone/Acetaminophen (*Crx) 5-325 Mg Tablet PO 1 tab Q4H PRN Administration Pain Rated 4-6 Albuterol 2 puff 11/23/24 01:57 11/29/24 00:37 Albuterol Sulfate (*Sp) Aerosol 1 Puff INHALATION 2 puff QID PRN Administration shortness of breath or wheezing Alprazolam 0.25 mg 11/25/24 12:45 11/26/24 01:16 Alprazolam (*Crx) 0.25 Mg Tablet PO 0.25 mg Q8HR PRN Administration Anxiety Amlodipine Besylate 10 mg 11/23/24 21:00 11/29/24 21:05 Amlodipine Besylate 10 Mg Tablet PO 10 mg HS ASHLEY Administration Aspirin 81 mg 11/23/24 09:00 11/30/24 08:45 Aspirin 81 Mg Enteric Tablet PO 81 mg QAM ASHLEY Administration Atorvastatin Calcium 80 mg 11/23/24 09:00 11/30/24 08:45 Atorvastatin 40 Mg Tablet PO 80 mg DAILY ASHLEY Administration Calcitriol 0.25 mcg 11/23/24 09:00 11/30/24 08:45 Calcitriol 0.25 Mcg Capsule PO 0.25 mcg QAM ASHLEY Administration Calcium Acetate 667 mg 11/23/24 09:00 11/30/24 08:45 Calcium Acetate 667 Mg Tablet PO 667 mg QID ASHLEY Administration Colchicine 0.6 mg 11/25/24 09:00 11/29/24 09:02 Colchicine 0.6 Mg Tablet PO 0.6 mg MoWeFr@0900 ASHLEY Administration Cyclobenzaprine HCl 5 mg 11/23/24 01:57 11/23/24 16:25 Cyclobenzaprine Hcl 5 Mg Tablet PO 5 mg TID PRN Administration muscle spasm Dextrose 12.5 gm 11/22/24 20:30 11/26/24 06:28 Dextrose 50% 25 Gm/50 Ml Syringe IV PUSH 12.5 gm PRN PRN Administration Hypoglycemia Protocol Ezetimibe 10 mg 11/23/24 09:00 11/30/24 08:44 Ezetimibe 10 Mg Tablet PO 10 mg DAILY ASHLEY Administration Ergocalciferol 50,000 units 11/25/24 09:00 11/25/24 12:25 Ergocalciferol 50,000 Units Capsule PO 50,000 units Mo@0900 ASHLEY Administration Famotidine 40 mg 11/23/24 21:00 11/29/24 21:05 Famotidine 20 Mg Tablet PO 40 mg HS ASHLEY Administration Fish Oil 1 gm 11/23/24 09:00 11/30/24 08:45 [place] 3 Polyunsat Fatty Acids 1 Gm Cap PO 1 gm QID ASHLEY Administration Gentamicin Sulfate 1 applic 11/23/24 21:00 11/29/24 21:03 Gentamicin Sulfate 0.1% Cr 15 Gm Tube TOPICAL Not Given HS ASHLEY Guaifenesin/Dextromethorphan 10 ml 11/22/24 23:50 11/27/24 15:48 Guaifenesin/Dextromethorphan 10 Ml Udc PO 10 ml BID PRN Administration Cough Heparin Sodium (Porcine) 7,500 units 11/27/24 07:19 Heparin Sodium 5,000 Units/Ml Vial IV PUSH PRN PRN aPTT less than 55 seconds Heparin Sodium (Porcine) 3,500 units 11/27/24 07:19 11/28/24 13:12 Heparin Sodium 5,000 Units/Ml Vial IV PUSH 3,500 units PRN PRN Administration aPTT 55 - 70 seconds Dextrose 1,000 mls @ 100 mls/hr 11/22/24 20:30 Dextrose 5% 1,000 Ml IVPB PRN PRN Hypoglycemia Protocol Heparin Sodium/Dextrose 25,000 units in 250 mls @ 14 mls/hr 11/27/24 07:20 11/30/24 08:51 Heparin Sodium/D5w 100 Units/Ml IV CONT 1,400 units/hr .[id number] ASHLEY 14 mls/hr Administration Protocol 1,400 UNITS/HR Insulin Aspart 2 - 5 units 11/23/24 08:00 11/30/24 08:47 Insulin Aspart (*Bkc) 100 Units/Ml SUB-Q 3 units TIDWM ASHLEY Administration Protocol Insulin Aspart 1 - 2 units 11/22/24 21:00 11/29/24 21:07 Insulin Aspart (*Bkc) 100 Units/Ml SUB-Q 1 units HS ASHLEY Administration Protocol Insulin Aspart 6 units 11/30/24 08:00 11/30/24 08:47 Insulin Aspart (*Bkc) 100 Units/Ml SUB-Q 6 units TIDWM ASHLEY Administration Insulin Glargine 20 units 11/28/24 09:00 11/30/24 08:45 Insulin Glargine (*Bkc) 100 Units/Ml SUB-Q 20 units DAILY@0900 ASHLEY Administration Insulin Human NPH 16 units 11/29/24 21:00 11/29/24 21:06 Insulin Human Nph (*Bkc) 100 Units/Ml SUB-Q 16 units HS ASHLEY Administration Levothyroxine Sodium 25 mcg 11/23/24 06:30 11/30/24 06:05 Levothyroxine Sodium 25 Mcg Tablet PO 25 mcg DAILY@0630 ASHLEY Administration Lidocaine 1 patch 11/23/24 09:00 11/30/24 08:45 Lidocaine 5% Patch TRANSDERM Not Given DAILY ASHLEY Linaclotide 72 mcg 11/23/24 01:57 Linaclotide 72 Mcg Capsule PO DAILY PRN Diarrhea Loratadine 10 mg 11/23/24 09:00 11/30/24 08:44 Loratadine 10 Mg Tablet PO 10 mg QAM ASHLEY Administration Metoprolol Tartrate 50 mg 11/22/24 23:40 11/30/24 08:45 Metoprolol Tartrate 50 Mg Tab PO 50 mg Q12HR ASHLEY Administration Morphine Sulfate 2 mg 11/23/24 17:27 11/24/24 08:09 Morphine Sulfate (*Crx) 2 Mg/Ml Inj IV PUSH 2 mg Q4H PRN Administration Pain Rated 7-10 Nitroglycerin 0.4 mg 11/23/24 09:23 Nitroglycerin Sl 0.4 Mg Tablet SUBLINGUAL Q5MIN PRN Chest Pain Pantoprazole Sodium 40 mg 11/23/24 09:00 11/30/24 08:44 Pantoprazole 40 Mg Tablet PO 40 mg QAM [facility] Administration Potassium Chloride 20 meq 11/23/24 08:00 11/30/24 08:44 Potassium Chloride 20 Meq Er Tablet PO 20 meq DAILY@0800 [facility] Administration Sevelamer Carbonate 800 mg 11/24/24 12:00 11/30/24 08:44 Sevelamer Carbonate 800 Mg Tablet PO 800 mg TIDWM [facility] Administration Sodium Chloride 1 spray 11/28/24 15:27 Saline 0.65% Adrian Soln 44 Ml Btl NASAL Q6HR PRN Congestion Tamsulosin HCl 0.4 mg 11/23/24 09:00 11/30/24 08:44 Tamsulosin Hcl 0.4 Mg Capsule PO 0.4 mg BID ASHLEY Administration Torsemide 100 mg 11/23/24 09:00 11/30/24 08:44 Torsemide 20 Mg Tablet PO 100 mg QAM ASHLEY Administration Warfarin Sodium 3 mg 11/26/24 17:45 11/29/24 18:06 Warfarin (*Pbkc) 3 Mg Tablet PO 3 mg DAILY@1700 ASHLEY Administration Warfarin Sodium 3 mg 11/30/24 12:19 Warfarin (*Pbkc) 3 Mg Tablet PO 11/30/24 12:20 ONCE ONE Radiology Results: ITS Impressions Chest CT 11/22/24 19:18 IMPRESSION: Interval development of a left lower lobe infiltrate with increased left-sided pleural effusion, as detailed above. Redemonstration of mediastinal lymphadenopathy. Abdomen/Pelvis CT 11/23/24 20:48 IMPRESSION: Segmental left lower lobe atelectasis/consolidation. Large left pleural effusion. Cholelithiasis, without CT evidence of cholecystitis. Mild right hydronephrosis with ureteral stranding and inflammatory change of the urinary bladder, findings may represent cystitis with ascending infection. Inflamed fat-containing umbilical hernia. Moderate body wall edema. Abdomen X-Ray 11/24/24 13:45 IMPRESSION: NO ACUTE ABDOMINAL FINDINGS. No definite stones seen. Noncontrast CT is better for evaluation. Thoracentesis Ultrasound 11/26/24 15:38 Impression: Successful ultrasound guided thoracentesis. Plan: Follow-up chest radiograph will be obtained. Chest X-Ray 11/29/24 15:50 Impression: 1: Moderate left pleural effusion with underlying compressive atelectasis. Labs Labs: Laboratory Tests 11/30/24 05:57 11/30/24 05:57 PT 22.7 H INR 1.9 Calcium 8.4 Phosphorus 5.9 H Magnesium 1.8 Albumin 3.1 L
[2024-11-30 12:09] LABS: Glucose Point of Care 241 mg/dl (65-105)
--- NOTE | 2024-11-30 12:14 | P.PNIM_ITS ---
Progress Note: A&P Assessment and Plan (1) Pleural effusion, left: Code(s): J90 - Pleural effusion, not elsewhere classified Status: Acute Assessment and Plan: Left pleural effusion noted on imaging. Thoracentesis was planned but cannot perform due to anticoagulant use. Warfarin held and thoracentesis performed 11/26: 21K RBC and 649 WBC almost all lymphocytes. Other studies pending. Pleural Cx NGTD Probably related to PD or CHF INR was subtherapeutic and started on Heparin drip. Extra Coumadin given and INR better at 1.9. He states his nurse discharge wants him between 2.5-3.5. Continue bridging Heparin. Continue Warfarin. Extra Coumadin today. Follow up on pleural studies and cultures (2) Pneumonia: Code(s): J18.9 - Pneumonia, unspecified organism Status: Acute Assessment and Plan: Left-sided pneumonia with left-sided pleural effusion: Ceftriaxone and azithromycin scheduled for pneumonia. Thoracentesis ordered as above. Changed to Doxycycline and Augmentin and has now completed abx treatment. (3) End-stage renal disease on peritoneal dialysis: Code(s): N18.6 - End stage renal disease; Z99.2 - Dependence on renal dialysis Status: Acute Assessment and Plan: Nephrology consulted and appreciate their input. Renal diabetic diet. Continue PD to control fluid status. (4) Elevated troponin: Code(s): R79.89 - Other specified abnormal findings of blood chemistry Status: Acute Assessment and Plan: Trop to 0.25 but flat. EKG showing AFlutter/tachycardia (HR 107) with Left BBB but no change from EKG in July. Echo in Aug 2024 showing EF 25%, and indeterminate diastolic function. Elevated Trop probably related to tachycardia associated with his low EF. [place] Type II DC from demand ischemia. He has CAD status post CABG (BRICE-LAD, SVG-OM, SVG to rPDA) in 09/2023 at [facility]. Continue Lopressor, Lipitor and ASA. Plan Right flank pain - radiated to groin 11/23/2024. CT showed mild right hydronephrosis with ureteral stranding and inflammatory changes the urinary bladder which may represent cystitis with ascending infection. Likely passed some stone. Urology follow-up as an outpatient basis. This pain has resolved now. Inflammatory change around umbilical hernia clinically nontender in this area likely chronic finding Mechanical aortic valve (OnX) -dose warfarin to have INR goal of 1.5-2.5 but unclear if he has this valve (he can not produce his card and his [employer] [place] recommends 2.5-3.5. As above. Paroxysmal Atrial fibrillation - rate better controlled. DVT prophylaxis Heparin Code status Full code. Subjective Date/time seen: 11/30/24 12:14 Interval history: 54yo male with an extensive medical history including CAD status post CABG, peritoneal dialysis, obesity, insulin-dependent diabetes mellitus, atrial fibrillation, mechanical aortic valve replacement on warfarin, who presents to [place] [facility] with complaint of shortness of breath worsening for 6 days. No problems overnight. Feels well. Exam Narrative: AF 97.4 118/74 88 18 96% ra Gen - NARD Chest -L>R basilar crackles. CV - RRR with mechanical S2 Abd -soft. Obese. Nontender. Left lower quadrant PD catheter noted. Ext -trace pedal edema Psych - Nml mood and affect Skin - Warm and dry Objective Data Vital Signs Vital Signs: Vital Signs - 24 hr 11/29/24 14:00 11/29/24 20:48 11/29/24 21:00 Temperature 97.3 F L 97.2 F L Pulse Rate 113 H 107 H Respiratory Rate 18 18 Blood Pressure 118/70 118/69 Pulse Oximetry 97 96 Oxygen Delivery Room Air 11/29/24 21:05 11/30/24 05:17 11/30/24 08:45 Temperature 97.4 F L Pulse Rate 107 H 98 88 Respiratory Rate 18 Blood Pressure 118/74 Pulse Oximetry 96 Oxygen Delivery Intake/Output Intake/Output: Intake & Output 11/27/24 11/28/24 11/29/24 11/30/24 23:59 23:59 23:59 23:59 Intake Total 3074.7 1240.3 3671 1458.2 Output Total 300 2449 200 930 Balance 2774.7 -1208.7 3471 528.2 Meds/Results Medications: Active Medications Generic Name Dose Route Start Last Admin Trade Name Freq PRN Reason Stop Dose Admin Hydrocodone Bitart/Acetaminophen 1 tab 11/24/24 12:45 11/28/24 20:14 Hydrocodone/Acetaminophen (*Crx) 5-325 Mg Tablet PO 1 tab Q4H PRN Administration Pain Rated 4-6 Albuterol 2 puff 11/23/24 01:57 11/29/24 00:37 Albuterol Sulfate (*Sp) Aerosol 1 Puff INHALATION 2 puff QID PRN Administration shortness of breath or wheezing Alprazolam 0.25 mg 11/25/24 12:45 11/26/24 01:16 Alprazolam (*Crx) 0.25 Mg Tablet PO 0.25 mg Q8HR PRN Administration Anxiety Amlodipine Besylate 10 mg 11/23/24 21:00 11/29/24 21:05 Amlodipine Besylate 10 Mg Tablet PO 10 mg HS ASHLEY Administration Aspirin 81 mg 11/23/24 09:00 11/30/24 08:45 Aspirin 81 Mg Enteric Tablet PO 81 mg QAM ASHLEY Administration Atorvastatin Calcium 80 mg 11/23/24 09:00 11/30/24 08:45 Atorvastatin 40 Mg Tablet PO 80 mg DAILY ASHLEY Administration Calcitriol 0.25 mcg 11/23/24 09:00 11/30/24 08:45 Calcitriol 0.25 Mcg Capsule PO 0.25 mcg QAM ASHLEY Administration Calcium Acetate 667 mg 11/23/24 09:00 11/30/24 08:45 Calcium Acetate 667 Mg Tablet PO 667 mg QID ASHLEY Administration Colchicine 0.6 mg 11/25/24 09:00 11/29/24 09:02 Colchicine 0.6 Mg Tablet PO 0.6 mg MoWeFr@0900 ASHLEY Administration Cyclobenzaprine HCl 5 mg 11/23/24 01:57 11/23/24 16:25 Cyclobenzaprine Hcl 5 Mg Tablet PO 5 mg TID PRN Administration muscle spasm Dextrose 12.5 gm 11/22/24 20:30 11/26/24 06:28 Dextrose 50% 25 Gm/50 Ml Syringe IV PUSH 12.5 gm PRN PRN Administration Hypoglycemia Protocol Ezetimibe 10 mg 11/23/24 09:00 11/30/24 08:44 Ezetimibe 10 Mg Tablet PO 10 mg DAILY ASHLEY Administration Ergocalciferol 50,000 units 11/25/24 09:00 11/25/24 12:25 Ergocalciferol 50,000 Units Capsule PO 50,000 units Mo@0900 ASHLEY Administration Famotidine 40 mg 11/23/24 21:00 11/29/24 21:05 Famotidine 20 Mg Tablet PO 40 mg HS ASHLEY Administration Fish Oil 1 gm 11/23/24 09:00 11/30/24 08:45 [place] 3 Polyunsat Fatty Acids 1 Gm Cap PO 1 gm QID ASHLEY Administration Gentamicin Sulfate 1 applic 11/23/24 21:00 11/29/24 21:03 Gentamicin Sulfate 0.1% Cr 15 Gm Tube TOPICAL Not Given HS ASHLEY Guaifenesin/Dextromethorphan 10 ml 11/22/24 23:50 11/27/24 15:48 Guaifenesin/Dextromethorphan 10 Ml Udc PO 10 ml BID PRN Administration Cough Heparin Sodium (Porcine) 7,500 units 11/27/24 07:19 Heparin Sodium 5,000 Units/Ml Vial IV PUSH PRN PRN aPTT less than 55 seconds Heparin Sodium (Porcine) 3,500 units 11/27/24 07:19 11/28/24 13:12 Heparin Sodium 5,000 Units/Ml Vial IV PUSH 3,500 units PRN PRN Administration aPTT 55 - 70 seconds Dextrose 1,000 mls @ 100 mls/hr 11/22/24 20:30 Dextrose 5% 1,000 Ml IVPB PRN PRN Hypoglycemia Protocol Heparin Sodium/Dextrose 25,000 units in 250 mls @ 14 mls/hr 11/27/24 07:20 11/30/24 08:51 Heparin Sodium/D5w 100 Units/Ml IV CONT 1,400 units/hr .[id number] ASHLEY 14 mls/hr Administration Protocol 1,400 UNITS/HR Insulin Aspart 2 - 5 units 11/23/24 08:00 11/30/24 08:47 Insulin Aspart (*Bkc) 100 Units/Ml SUB-Q 3 units TIDWM [facility] Administration Protocol Insulin Aspart 1 - 2 units 11/22/24 21:00 11/29/24 21:07 Insulin Aspart (*Bkc) 100 Units/Ml SUB-Q 1 units HS ASHLEY Administration Protocol Insulin Aspart 6 units 11/30/24 08:00 11/30/24 08:47 Insulin Aspart (*Bkc) 100 Units/Ml SUB-Q 6 units TIDWM ASHLEY Administration Insulin Glargine 20 units 11/28/24 09:00 11/30/24 08:45 Insulin Glargine (*Bkc) 100 Units/Ml SUB-Q 20 units DAILY@0900 [facility] Administration Insulin Human NPH 16 units 11/29/24 21:00 11/29/24 21:06 Insulin Human Nph (*Bkc) 100 Units/Ml SUB-Q 16 units HS ASHLEY Administration Levothyroxine Sodium 25 mcg 11/23/24 06:30 11/30/24 06:05 Levothyroxine Sodium 25 Mcg Tablet PO 25 mcg DAILY@0630 ASHLEY Administration Lidocaine 1 patch 11/23/24 09:00 11/30/24 08:45 Lidocaine 5% Patch TRANSDERM Not Given DAILY [facility] Linaclotide 72 mcg 11/23/24 01:57 Linaclotide 72 Mcg Capsule PO DAILY PRN Diarrhea Loratadine 10 mg 11/23/24 09:00 11/30/24 08:44 Loratadine 10 Mg Tablet PO 10 mg QAM [facility] Administration Metoprolol Tartrate 50 mg 11/22/24 23:40 11/30/24 08:45 Metoprolol Tartrate 50 Mg Tab PO 50 mg Q12HR ASHLEY Administration Morphine Sulfate 2 mg 11/23/24 17:27 11/24/24 08:09 Morphine Sulfate (*Crx) 2 Mg/Ml Inj IV PUSH 2 mg Q4H PRN Administration Pain Rated 7-10 Nitroglycerin 0.4 mg 11/23/24 09:23 Nitroglycerin Sl 0.4 Mg Tablet SUBLINGUAL Q5MIN PRN Chest Pain Pantoprazole Sodium 40 mg 11/23/24 09:00 11/30/24 08:44 Pantoprazole 40 Mg Tablet PO 40 mg QAM [facility] Administration Potassium Chloride 20 meq 11/23/24 08:00 11/30/24 08:44 Potassium Chloride 20 Meq Er Tablet PO 20 meq DAILY@0800 [facility] Administration Sevelamer Carbonate 800 mg 11/24/24 12:00 11/30/24 08:44 Sevelamer Carbonate 800 Mg Tablet PO 800 mg TIDWM [facility] Administration Sodium Chloride 1 spray 11/28/24 15:27 Saline 0.65% Adrian Soln 44 Ml Btl NASAL Q6HR PRN Congestion Tamsulosin HCl 0.4 mg 11/23/24 09:00 11/30/24 08:44 Tamsulosin Hcl 0.4 Mg Capsule PO 0.4 mg BID ASHLEY Administration Torsemide 100 mg 11/23/24 09:00 11/30/24 08:44 Torsemide 20 Mg Tablet PO 100 mg QAM [facility] Administration Warfarin Sodium 3 mg 11/26/24 17:45 11/29/24 18:06 Warfarin (*Pbkc) 3 Mg Tablet PO 3 mg DAILY@1700 ASHLEY Administration Radiology Results: ITS Impressions Chest CT 11/22/24 19:18 IMPRESSION: Interval development of a left lower lobe infiltrate with increased left-sided pleural effusion, as detailed above. Redemonstration of mediastinal lymphadenopathy. Abdomen/Pelvis CT 11/23/24 20:48 IMPRESSION: Segmental left lower lobe atelectasis/consolidation. Large left pleural effusion. Cholelithiasis, without CT evidence of cholecystitis. Mild right hydronephrosis with ureteral stranding and inflammatory change of the urinary bladder, findings may represent cystitis with ascending infection. Inflamed fat-containing umbilical hernia. Moderate body wall edema. Abdomen X-Ray 11/24/24 13:45 IMPRESSION: NO ACUTE ABDOMINAL FINDINGS. No definite stones seen. Noncontrast CT is better for evaluation. Thoracentesis Ultrasound 11/26/24 15:38 Impression: Successful ultrasound guided thoracentesis. Plan: Follow-up chest radiograph will be obtained. Chest X-Ray 11/29/24 15:50 Impression: 1: Moderate left pleural effusion with underlying compressive atelectasis. Labs Labs: Laboratory Results - last 24 hr 11/29/24 11/29/24 11/29/24 12:09 16:53 20:43 WBC RBC Hgb Hct MCV MCH MCHC RDW Plt Count MPV Immature Gran % (Auto) Neut % (Auto) Lymph % (Auto) [place] % (Auto) Eos % (Auto) Baso % (Auto) Lymph # (Auto) [place] # (Auto) Eos # (Auto) Baso # (Auto) Abs Immat Gran (auto) Absolute Neuts (auto) Absolute Nucleated RBC Nucleated RBC % PT INR APTT Sodium Potassium Chloride Carbon Dioxide Anion Gap BUN Creatinine Estim Creat Clear Calc Estimated GFR Glucose POC Capillary Glucose 81 149 H 246 H Calcium Phosphorus Magnesium Albumin 11/30/24 11/30/24 11/30/24 05:57 05:58 08:09 WBC 5.0 RBC 3.46 L Hgb 10.5 L Hct 31.8 L MCV 91.9 MCH 30.3 MCHC 33.0 RDW 14.1 Plt Count 156 MPV 10.6 H Immature Gran % (Auto) 1.8 H Neut % (Auto) 51.0 Lymph % (Auto) 25.1 [place] % (Auto) 16.9 H Eos % (Auto) 4.8 H Baso % (Auto) 0.4 Lymph # (Auto) 1.25 [place] # (Auto) 0.8 H Eos # (Auto) 0.2 Baso # (Auto) 0.0 Abs Immat Gran (auto) 0.09 H Absolute Neuts (auto) 2.5 Absolute Nucleated RBC 0.000 Nucleated RBC % 0.0 PT 22.7 H INR 1.9 APTT 87.4 H Sodium 130 L Potassium 3.6 Chloride 93 L Carbon Dioxide 25 Anion Gap 12 BUN 68 H Creatinine 8.37 H Estim Creat Clear Calc 12 Estimated GFR 7 L Glucose 293 H POC Capillary Glucose 273 H Calcium 8.4 Phosphorus 5.9 H Magnesium 1.8 Albumin 3.1 L 11/30/24 12:02 WBC RBC Hgb Hct MCV MCH MCHC RDW Plt Count MPV Immature Gran % (Auto) Neut % (Auto) Lymph % (Auto) [place] % (Auto) Eos % (Auto) Baso % (Auto) Lymph # (Auto) [place] # (Auto) Eos # (Auto) Baso # (Auto) Abs Immat Gran (auto) Absolute Neuts (auto) Absolute Nucleated RBC Nucleated RBC % PT INR APTT Sodium Potassium Chloride Carbon Dioxide Anion Gap BUN Creatinine Estim Creat Clear Calc Estimated GFR Glucose POC Capillary Glucose 241 H Calcium Phosphorus Magnesium Albumin
[2024-11-30] MEDS: WARFARIN (*PBKC) 3 MG TABLET PO ×2 (12:55→17:52)
[2024-11-30 17:20] LABS: Glucose Point of Care 185 mg/dl (65-105)
[2024-11-30] MEDS: amLODIPine BESYLATE 10 MG TABLET PO (20:42)
[2024-11-30] MEDS: FAMOTIDINE 20 MG TABLET 40 MG PO (20:43)
[2024-11-30] MEDS: INSULIN HUMAN NPH (*BKC) 100 UNITS/ML 16 UNITS SUB-Q (20:45)
[2024-11-30] MEDS: GENTAMICIN SULFATE 0.1% CR 15 GM TUBE 1 APPLIC TOPICAL (20:48)
[2024-11-30 20:55] LABS: Glucose Point of Care 209 mg/dl (65-105)
[2024-11-30 21:18] LABS: Albumin Pleural Fluid 1.2 g/dL; Amylase, Pleural Fluid <10 U/L; Glucose Pleural Fluid 122 mg/dL; LDH Pleural Fluid 153 U/L; Total Protein Pleural Fluid <3.0 g/dL
[2024-12-01 01:00] VITALS: RESP 13
[2024-12-01] MEDS: HEPARIN SOD/D5W 100 UNITS/ML 25,000 UNITS/250 ML BAG 14 UNITS IV CONT (03:19)
[2024-12-01 05:35] VITALS: BP 125/69; PULSE 98; RESP 16; TEMP 36.6; O2SAT 98
[2024-12-01] MEDS: LEVOTHYROXINE SODIUM 25 MCG TABLET PO (06:03)
[2024-12-01 06:25] LABS: Partial Thromboplastin Time 96.2 Seconds (22.3-36.8)
[2024-12-01 06:33] LABS: INR 2.2; Prothrombin Time 25.3 Seconds (11.1-14.7)
[2024-12-01 08:27] LABS: Glucose Point of Care 114 mg/dl (65-105)
[2024-12-01] MEDS: TORSEMIDE 20 MG TABLET 100 MG PO (08:37)
[2024-12-01] MEDS: EZETIMIBE 10 MG TABLET PO (08:37)
[2024-12-01 08:38] VITALS: PULSE 98
[2024-12-01] MEDS: calcitrioL 0.25 MCG CAPSULE PO (08:38)
[2024-12-01] MEDS: METOPROLOL TARTRATE 50 MG TAB PO (08:38)
[2024-12-01] MEDS: PANTOPRAZOLE 40 MG TABLET PO (08:38)
[2024-12-01] MEDS: OMEGA 3 POLYUNSAT FATTY ACIDS 1 GM CAP PO ×3 (08:38→17:30)
[2024-12-01] MEDS: CALCIUM ACETATE 667 MG TABLET PO ×3 (08:38→17:30)
[2024-12-01] MEDS: SEVELAMER CARBONATE 800 MG TABLET PO ×3 (08:38→17:31)
[2024-12-01] MEDS: ASPIRIN 81 MG ENTERIC TABLET PO (08:38)
[2024-12-01] MEDS: TAMSULOSIN HCL 0.4 MG CAPSULE PO ×2 (08:38→17:30)
[2024-12-01] MEDS: LORATADINE 10 MG TABLET PO (08:38)
[2024-12-01] MEDS: POTASSIUM CHLORIDE 20 MEQ ER TABLET PO (08:38)
[2024-12-01] MEDS: ATORVASTATIN 40 MG TABLET 80 MG PO (08:38)
[2024-12-01] MEDS: INSULIN GLARGINE (*BKC) 100 UNITS/ML 20 UNITS SUB-Q (08:40)
[2024-12-01] MEDS: INSULIN ASPART (*BKC) 100 UNITS/ML 6 UNITS SUB-Q ×2 (08:40→12:24)
[2024-12-01 09:43] VITALS: BP 125/69; PULSE 98; RESP 16; TEMP 36.6
[2024-12-01 11:45] LABS: Glucose Point of Care 105 mg/dl (65-105)
--- NOTE | 2024-12-01 11:47 | P.PNNP_ITS ---
Progress Note: A&P Assessment and Plan (1) End stage renal disease: Code(s): N18.6 - End stage renal disease Status: Chronic Assessment and Plan: * continue nightly peritoneal dialysis treatments * follow electrolytes, volume status and clearance * primary agricultural service technician = Dr Sharath Reyes * outpatient dialysis unit = [facility] (2) Pneumonia: Code(s): J18.9 - Pneumonia, unspecified organism Status: Acute Assessment and Plan: * presumed to contributing to shortness of breath * on antibiotics * follow culture data - negative to date (3) Pleural effusion, left: Code(s): J90 - Pleural effusion, not elsewhere classified Status: Acute Assessment and Plan: * possibly parapenumonic... * s/p thoracentesis (on 11/26) * pleural fluid cell count noted * pleural fluid cultures pending * suspect contributing to shortness of breath on presentation (4) Right flank pain: Code(s): R10.9 - Unspecified abdominal pain Status: Acute Assessment and Plan: * noted on admission with radiation to groin * admission CT showed mild right hydronephrosis with ureteral stranding and inflammatory changes the urinary bladder which may represent cystitis with ascending infection * suspect he may have passed a kindey stone * continue supportive therapy (5) Hypertension: Code(s): I10 - Essential (primary) hypertension Status: Chronic Assessment and Plan: * reasonable control at this time * follow trend of hemodynamics (6) Anemia: Code(s): D64.9 - Anemia, unspecified Status: Chronic Assessment and Plan: * due to ESRD * H/H at goal if not supratherapeutic * resume CORRINE if Hgb < 10 (7) Obstructive sleep apnea: Code(s): G47.33 - Obstructive sleep apnea (adult) (pediatric) Status: Chronic Assessment and Plan: * continue nightly CPAP use (8) Type 1 diabetes mellitus with hyperglycemia: Code(s): E10.65 - Type 1 diabetes mellitus with hyperglycemia Status: Acute Assessment and Plan: * follow accu-cheks * glycemic control per hospitalist Will continue to follow. L Subjective Date/time seen: 12/01/24 11:47 Interval history: Follow-up for end stage renal disease on peritoneal dialysis. No apparent distress voiced at the time of my visit; breathing/respiratory status appears stable if not better in comparison to admission; tolerated peritoneal dialysis overnight (~ 2300cc fluid removal) without any issues or problems; no other acute complaints voiced. Exam 2 Narrative: General: WD/WN male in NAD Heart: normal S1 and S2; no rub Lungs: clear anteriorly, decreased at bases Abdomen: soft, nontender, nondistended, positive bowel sounds Extremities: no cyanosis or clubbing; trace - 1+ edema (chronic) Skin: no rash or nodules Objective Data Vital Signs Vital Signs: Vital Signs Temp Pulse Resp BP Pulse Ox O2 Del Method FiO2 12/01/24 11:30 98.3 F 99 20 116/67 100 12/01/24 09:43 97.9 F 98 16 125/69 12/01/24 08:38 98 12/01/24 08:00 Room Air 12/01/24 05:35 97.9 F 98 16 125/69 98 12/01/24 01:00 13 BiPAP 11/30/24 21:21 106 H 11/30/24 21:04 98.5 F 86 16 125/71 97 11/30/24 20:00 106 H 16 97 Room Air 0 Intake/Output Intake/Output: Intake & Output 11/28/24 11/29/24 11/30/24 12/01/24 23:59 23:59 23:59 23:59 Intake Total 1240.3 3671 1818.2 3391.4 Output Total 2449 200 1130 Balance -1208.7 3471 688.2 3391.4 Meds/Results Medications: Active Medications Generic Name Dose Route Start Last Admin Trade Name Freq PRN Reason Stop Dose Admin Hydrocodone Bitart/Acetaminophen 1 tab 11/24/24 12:45 11/28/24 20:14 Hydrocodone/Acetaminophen (*Crx) 5-325 Mg Tablet PO 1 tab Q4H PRN Administration Pain Rated 4-6 Albuterol 2 puff 11/23/24 01:57 11/29/24 00:37 Albuterol Sulfate (*Sp) Aerosol 1 Puff INHALATION 2 puff QID PRN Administration shortness of breath or wheezing Alprazolam 0.25 mg 11/25/24 12:45 11/26/24 01:16 Alprazolam (*Crx) 0.25 Mg Tablet PO 0.25 mg Q8HR PRN Administration Anxiety Amlodipine Besylate 10 mg 11/23/24 21:00 11/30/24 20:42 Amlodipine Besylate 10 Mg Tablet PO 10 mg HS ASHLEY Administration Aspirin 81 mg 11/23/24 09:00 12/01/24 08:38 Aspirin 81 Mg Enteric Tablet PO 81 mg QAM ASHLEY Administration Atorvastatin Calcium 80 mg 11/23/24 09:00 12/01/24 08:38 Atorvastatin 40 Mg Tablet PO 80 mg DAILY ASHLEY Administration Calcitriol 0.25 mcg 11/23/24 09:00 12/01/24 08:38 Calcitriol 0.25 Mcg Capsule PO 0.25 mcg QAM ASHLEY Administration Calcium Acetate 667 mg 11/23/24 09:00 12/01/24 12:24 Calcium Acetate 667 Mg Tablet PO 667 mg QID ASHLEY Administration Colchicine 0.6 mg 11/25/24 09:00 11/29/24 09:02 Colchicine 0.6 Mg Tablet PO 0.6 mg MoWeFr@0900 ASHLEY Administration Cyclobenzaprine HCl 5 mg 11/23/24 01:57 11/23/24 16:25 Cyclobenzaprine Hcl 5 Mg Tablet PO 5 mg TID PRN Administration muscle spasm Dextrose 12.5 gm 11/22/24 20:30 11/26/24 06:28 Dextrose 50% 25 Gm/50 Ml Syringe IV PUSH 12.5 gm PRN PRN Administration Hypoglycemia Protocol Ezetimibe 10 mg 11/23/24 09:00 12/01/24 08:37 Ezetimibe 10 Mg Tablet PO 10 mg DAILY ASHLEY Administration Ergocalciferol 50,000 units 11/25/24 09:00 11/25/24 12:25 Ergocalciferol 50,000 Units Capsule PO 50,000 units Mo@0900 ASHLEY Administration Famotidine 40 mg 11/23/24 21:00 11/30/24 20:43 Famotidine 20 Mg Tablet PO 40 mg HS ASHLEY Administration Fish Oil 1 gm 11/23/24 09:00 12/01/24 12:24 [place] 3 Polyunsat Fatty Acids 1 Gm Cap PO 1 gm QID ASHLEY Administration Gentamicin Sulfate 1 applic 11/23/24 21:00 11/30/24 20:48 Gentamicin Sulfate 0.1% Cr 15 Gm Tube TOPICAL 1 applic HS [facility] Administration Guaifenesin/Dextromethorphan 10 ml 11/22/24 23:50 11/27/24 15:48 Guaifenesin/Dextromethorphan 10 Ml Udc PO 10 ml BID PRN Administration Cough Heparin Sodium (Porcine) 7,500 units 11/27/24 07:19 Heparin Sodium 5,000 Units/Ml Vial IV PUSH PRN PRN aPTT less than 55 seconds Heparin Sodium (Porcine) 3,500 units 11/27/24 07:19 11/28/24 13:12 Heparin Sodium 5,000 Units/Ml Vial IV PUSH 3,500 units PRN PRN Administration aPTT 55 - 70 seconds Dextrose 1,000 mls @ 100 mls/hr 11/22/24 20:30 Dextrose 5% 1,000 Ml IVPB PRN PRN Hypoglycemia Protocol Heparin Sodium/Dextrose 25,000 units in 250 mls @ 14 mls/hr 11/27/24 07:20 12/01/24 07:42 Heparin Sodium/D5w 100 Units/Ml IV CONT 1,400 units/hr .[id number] ASHLEY 14 mls/hr Titration Protocol 1,400 UNITS/HR Insulin Aspart 2 - 5 units 11/23/24 08:00 12/01/24 12:10 Insulin Aspart (*Bkc) 100 Units/Ml SUB-Q Not Given TIDWM [facility] Protocol Insulin Aspart 1 - 2 units 11/22/24 21:00 11/30/24 20:55 Insulin Aspart (*Bkc) 100 Units/Ml SUB-Q 1 units HS ASHLEY Administration Protocol Insulin Aspart 6 units 11/30/24 08:00 12/01/24 12:24 Insulin Aspart (*Bkc) 100 Units/Ml SUB-Q 6 units TIDWM ASHLEY Administration Insulin Glargine 20 units 11/28/24 09:00 12/01/24 08:40 Insulin Glargine (*Bkc) 100 Units/Ml SUB-Q 20 units DAILY@0900 ASHLEY Administration Insulin Human NPH 16 units 11/29/24 21:00 11/30/24 20:45 Insulin Human Nph (*Bkc) 100 Units/Ml SUB-Q 16 units HS ASHLEY Administration Levothyroxine Sodium 25 mcg 11/23/24 06:30 12/01/24 06:03 Levothyroxine Sodium 25 Mcg Tablet PO 25 mcg DAILY@0630 ASHLEY Administration Lidocaine 1 patch 11/23/24 09:00 12/01/24 08:39 Lidocaine 5% Patch TRANSDERM Not Given DAILY [facility] Linaclotide 72 mcg 11/23/24 01:57 Linaclotide 72 Mcg Capsule PO DAILY PRN Diarrhea Loratadine 10 mg 11/23/24 09:00 12/01/24 08:38 Loratadine 10 Mg Tablet PO 10 mg QAM ASHLEY Administration Metoprolol Tartrate 50 mg 11/22/24 23:40 12/01/24 08:38 Metoprolol Tartrate 50 Mg Tab PO 50 mg Q12HR ASHLEY Administration Morphine Sulfate 2 mg 11/23/24 17:27 11/24/24 08:09 Morphine Sulfate (*Crx) 2 Mg/Ml Inj IV PUSH 2 mg Q4H PRN Administration Pain Rated 7-10 Nitroglycerin 0.4 mg 11/23/24 09:23 Nitroglycerin Sl 0.4 Mg Tablet SUBLINGUAL Q5MIN PRN Chest Pain Pantoprazole Sodium 40 mg 11/23/24 09:00 12/01/24 08:38 Pantoprazole 40 Mg Tablet PO 40 mg QAM [facility] Administration Potassium Chloride 20 meq 11/23/24 08:00 12/01/24 08:38 Potassium Chloride 20 Meq Er Tablet PO 20 meq DAILY@0800 [facility] Administration Sevelamer Carbonate 800 mg 11/24/24 12:00 12/01/24 12:24 Sevelamer Carbonate 800 Mg Tablet PO 800 mg TIDWM [facility] Administration Sodium Chloride 1 spray 11/28/24 15:27 Saline 0.65% [place] Soln 44 Ml Btl NASAL Q6HR PRN Congestion Tamsulosin HCl 0.4 mg 11/23/24 09:00 12/01/24 08:38 Tamsulosin Hcl 0.4 Mg Capsule PO 0.4 mg BID ASHLEY Administration Torsemide 100 mg 11/23/24 09:00 12/01/24 08:37 Torsemide 20 Mg Tablet PO 100 mg QAM [facility] Administration Warfarin Sodium 3 mg 11/26/24 17:45 11/30/24 17:52 Warfarin (*Pbkc) 3 Mg Tablet PO 3 mg DAILY@1700 [facility] Administration Radiology Results: ITS Impressions Chest CT 11/22/24 19:18 IMPRESSION: Interval development of a left lower lobe infiltrate with increased left-sided pleural effusion, as detailed above. Redemonstration of mediastinal lymphadenopathy. Abdomen/Pelvis CT 11/23/24 20:48 IMPRESSION: Segmental left lower lobe atelectasis/consolidation. Large left pleural effusion. Cholelithiasis, without CT evidence of cholecystitis. Mild right hydronephrosis with ureteral stranding and inflammatory change of the urinary bladder, findings may represent cystitis with ascending infection. Inflamed fat-containing umbilical hernia. Moderate body wall edema. Abdomen X-Ray 11/24/24 13:45 IMPRESSION: NO ACUTE ABDOMINAL FINDINGS. No definite stones seen. Noncontrast CT is better for evaluation. Thoracentesis Ultrasound 11/26/24 15:38 Impression: Successful ultrasound guided thoracentesis. Plan: Follow-up chest radiograph will be obtained. Chest X-Ray 11/29/24 15:50 Impression: 1: Moderate left pleural effusion with underlying compressive atelectasis. Labs Labs: Laboratory Tests 11/30/24 05:57 11/30/24 05:57 12/01/24 05:52 PT 25.3 H INR 2.2 Microbiology 11/26/24 14:55 Pleural Fluid Anaerobic Culture - Preliminary 11/26/24 14:55 Pleural Fluid Aerobic Culture - Final
[2024-12-01 14:00] VITALS: BP 116/67; PULSE 99; RESP 20; TEMP 36.8; O2SAT 100
--- NOTE | 2024-12-01 16:07 | P.DS_ITS ---
DS: Admitting Diagnosis Discharge Date 12/01/24 Admitting Diagnosis Shortness of breath DS: Discharge Diagnosis Discharge Diagnosis (1) Pleural effusion, left: Code(s): J90 - Pleural effusion, not elsewhere classified Status: Acute (2) Pneumonia: Code(s): J18.9 - Pneumonia, unspecified organism Status: Acute (3) End-stage renal disease on peritoneal dialysis: Code(s): N18.6 - End stage renal disease; Z99.2 - Dependence on renal dialysis Status: Acute (4) Elevated troponin: Code(s): R79.89 - Other specified abnormal findings of blood chemistry Status: Acute DS: Summary Hospital Course Reason for hospitalization: 54yo male with CAD status post CABG, peritoneal dialysis, obesity, insulin- dependent diabetes mellitus, atrial fibrillation, mechanical aortic valve replacement on warfarin, who presents to [facility] with complaint of shortness of breath worsening for 6 days. Please see H&P for details. Hospital Course: Patient presents with SOB. Chest CT showing LLL infiltrate with increased left pleural effusion and previously noted mediastinal lymphadenopathy. Thoracentesis was planned but cannot perform due to anticoagulant use. Warfarin held and thoracentesis performed 11/26: 21K RBC and 649 WBC almost all lymphocytes. Besides LDH ratio, the other findings consistent with transudative process. Pleural Cx NGTD. BCx negative. Urine culture negative. Pathology showed numerous RBCs but negative for malignancy. Probably related to PD and/or CHF. INR was subtherapeutic and started on Heparin drip. Extra Coumadin given and INR better at 2.2. He agreeable for discharge with plans for extra Coumadin tonight. Concern for left-sided pneumonia so started on Ceftriaxone and azithromycin. He was changed to Doxycycline and Augmentin and has now completed abx treatment. He has ESRD. Nephrology consulted and appreciate their input. Renal diabetic diet. We continued PD to control fluid status. Trop to 0.25 but flat. EKG showing AF lutter/tachycardia (HR 107) with Left BBB but no change from EKG in July. Echo in Aug 2024 showing EF 25%, and indeterminate diastolic function. Elevated Trop probably related to tachycardia associated with his low EF. [place] Type II AR from demand ischemia. He has CAD status post CABG (BRICE-LAD, SVG-OM, SVG to rPDA) in 09/2023 at [facility]. We continued Lopressor, Lipitor and ASA. He was having right flank pain that radiated to groin 11/23/2024. CT showed mild right hydronephrosis with ureteral stranding and inflammatory changes the urinary bladder which may represent cystitis with ascending infection. UA did show >100 RBCs but not uncommon for him. Possibly passed a stone. Urine culture negative. No stones noted on imaging. Urology follow-up as an outpatient basis. This pain has resolved now. Inflammatory change around umbilical hernia clinically nontender in this area likely chronic finding. He will monitor this for now. Patient has a mechanical aortic valve (possibly OnX). Prior cardiology noted reviewed showing that we should dose warfarin to have INR goal of 1.5-2.5 but unclear if he has this valve (he can not produce his card) and his Wire Products Inspector recommends INR b/w 2.5-3.5. Since he is close to therapeutic and above 2, plan for discharge and patient to take extra Warfarin tonight. He will monitor his INR daily. He overall did well and was able to be discharged home on 12/01/24. Status at Discharge Cognitive/behavioral status at discharge: stable Time Spent with Patient Time attestation: Total time spent providing and/or coordinating discharge services: 34 minutes Time spent: Greater than 30 minutes Exam Narrative: AF 98.3 116/67 99 20 100% ra Gen - NARD Chest -L>R basilar crackles. CV - RRR with mechanical S2 Abd -soft. Obese. Nontender. Ext -trace pedal edema Psych - Nml mood and affect Skin - Warm and dry DS: Data Data Completed and Pending Completed studies during hospitalization: Pending at discharge 11/26/24 14:43 Cytology [PTH] Routine Labs on day of discharge: Labs from last 24 hours 12/01/24 12/01/24 12/01/24 11:42 08:23 05:52 PT 25.3 H INR 2.2 APTT 96.2 H POC Capillary Glucose 105 114 H Pleural Total Protein Pleural Albumin Pleural LDH Pleural Glucose Pleural Amylase Pleural Cholesterol Pleural Triglycerides 11/30/24 11/30/24 11/26/24 20:38 17:04 14:43 PT INR APTT POC Capillary Glucose 209 H 185 H Pleural Total Protein <3.0 Pleural Albumin 1.2 Pleural LDH 153 Pleural Glucose 122 Pleural Amylase <10 Pleural Cholesterol 24 Pleural Triglycerides 17 Preliminary micro results at discharge 11/26/24 14:55 Anaerobic Culture - Preliminary Pleural Fluid Discharge Plan Discharge Attending physician on discharge: Andrew Yang Consulting providers: Sourav Rodriguez Discharging Clinician: Andrew Yang Anticipated Discharge Date/Time: 12/01/24 16:27 Patient Disposition: Home Activity: as tolerated Diet: diabetic and renal Discharge Instructions: Take extra Coumadin 3mg tonight (12/01/24) for a total of 6mg then decrease to your normal 3mg daily dose. Check your INR every day and call your doctor with the results. Please check glucose before meals and before bed. Record and bring into your doctor for review. Watch carefully for low glucose Check blood pressure 1 to 2 times a day. Record and bring into your doctor for review. Call your doctor if your blood pressure is greater than 180/110. Take precautions to avoid falls. Rise slowly from a lying or sitting position. Pause before standing or walking. Continue Peritoneal Dialysis per your routine Contact your doctor or call 911 and come to the Emergency Room if you have fevers, chest pain, lightheadedness with standing or other worrisome symptoms. Avoid NSAIDs (ibuprofen, naproxen, Aleve). Tylenol is safe to take. Follow-up with your primary care provider in 1-2 weeks. Please call for appointment. Follow-up with Urology in 2 weeks. Please call for an appointment. Follow-up with Nephrology at next scheduled appointment. Thank you for using [facility] for your health care needs. Patient Instructions: Antibiotic Form, Warfarin (By mouth), Heart Failure (GEN), Pain Management in Older Adults (DC) Patient Language: Scottish Stand Alone Forms: General Discharge Information Follow-up/Referrals: John Maki MD [Physician] - 2 Weeks (Needs outpatient cystoscopy for hematuria workup) Matthew,MD Aditya [Primary Care Provider] - Call for Appointment Sourav Rodriguez MD [Physician] - Call for Appointment Discharge Medications: Continued calcitriol 0.25 mcg Capsule 0.25 mcg PO QAM ergocalciferol (vitamin D2) [Vitamin D2] 50,000 unit Capsule 50,000 unit PO WEEKLY Rx Instructions: on mondays at 0900 nitroglycerin 0.4 mg Tablet, Sublingual 0.4 mg SUBLINGUAL Q5-15M PRN (Reason: Chest Pain) Patient Comments: pt states he needs his prescription renewed (DME) Omnipod 5 G6 Pods (Gen 5) Cartridge SUBCUT Qty: 45 2RF Rx Instructions: Change every 48 hours metoprolol tartrate 50 mg tablet 50 mg PO Q12H Patient Comments: patient states he takes 50mg BID (0900, 2100) not 100mg Daily insulin aspart U-100 [Novolog FlexPen U-100 Insulin] 100 unit/mL (3 mL) insulin pen 15 unit subcut TIDWMEAL Rx Instructions: Take 12 units premeal +SSI 150-170: 1 unit 171-190: 2 units 191-210: 3 units 210-230: 4 units 231-250: 5 units 251-270: 6 units 271-290: 7 units 291-310: 8 units 310-330: 9 units 331-350: 10 units 351-370: 11 units 371-390: 12 units 391-410: 13 units >411 14 units ezetimibe [Zetia] 10 mg Tablet 10 mg PO DAILY cetirizine [All Day Allergy (cetirizine)] 10 mg Tablet 10 mg PO DAILY atorvastatin 80 mg tablet 80 mg PO DAILY albuterol sulfate [ProAir HFA] 90 mcg/actuation HFA aerosol inhaler 1 inh inhalation QID PRN (Reason: shortness of breath or wheezing) Qty: 8.5 0RF febuxostat 40 mg tablet 40 mg PO QPM Linzess 72 mcg capsule 72 mcg PO DAILY PRN (Reason: Diarrhea) omeprazole 20 mg capsule,delayed release(DR/EC) 20 mg PO DAILY aspirin 81 mg capsule 81 mg PO DAILY colchicine 0.6 mg capsule 0.6 mg PO 3XW Rx Instructions: monday, monday, fridays gentamicin 0.1 % cream 1 applic topical HS tamsulosin 0.4 mg capsule 0.4 mg PO BID Patient Comments: 0900, 1700 potassium chloride 20 mEq tablet extended release 20 meq PO DAILY torsemide 100 mg tablet 100 mg PO DAILY icosapent ethyl [Vascepa] 1 gram capsule 1 g PO QID amlodipine 10 mg tablet 10 mg PO HS Gvoke HypoPen 2-Pack 1 mg/0.2 mL auto-injector See Rx Instructions .ROUTE .COMPLEX PRN (Reason: Hypoglycemia) Rx Instructions: INJECT 1 MG(0.2 ML) UNDER THE SKIN ONCE A SINGLE DOSE, MAY REPEAT ONCE AFTER 15 MINUTES IF NO RESPONSE calcium acetate(phosphat bind) 667 mg capsule 667 mg PO QID cyclobenzaprine 10 mg tablet 5 - 10 mg PO TID PRN (Reason: muscle spasm) Qty: 10 0RF famotidine 40 mg tablet 40 mg PO HS lidocaine 5 % adhesive patch,medicated 1 patch transdermal Q24H Patient Comments: Back warfarin 5 mg tablet 3 mg PO DAILY Humulin N NPH Insulin KwikPen 100 unit/mL (3 mL) insulin pen 40 unit subcut DAILY Patient Comments: Patient states it is 40 not 30 Rx Instructions: take 30 units before peritoneal dialysis (DME) pen needle, diabetic [BD Lucrecia 2nd Gen Pen Needle] 32 gauge x 5/32 needle See Rx Instructions .ROUTE .COMPLEX Qty: 400 1RF Dose Instruction: TO ADMINISTER INSULIN DIRECTED Rx Instructions: TO ADMINISTER INSULIN 4 times daily (DME) OneTouch Verio test strips Strip See Rx Instructions .Route Qty: 300 0RF Rx Instructions: test bs 3 times daily (DME) Dexcom G6 Transmitter Device See Rx Instructions .Route Qty: 1 0RF Rx Instructions: change every 90 days levothyroxine 25 mcg tablet 25 mcg PO DAILY Qty: 90 1RF (DME) Dexcom G6 Sensor Device See Rx Instructions .Route Qty: 9 0RF Rx Instructions: change every 10 days insulin glargine U-300 conc [Toujeo SoloStar U-300 Insulin] 300 unit/mL (1.5 mL) insulin pen 50 unit subcut DAILY 90 Days Qty: 18 2RF Date of admission: 11/23/24 08:20 [facility]: Leidy Hall Attending physician on admission: Leidy Hall Condition: Stable Hospitalist MIPS Heart Failure (Exclusion) Patient has history of Heart Transplant or Left Ventricular Assistive Device?: No IF YES, STOP HERE Heart Failure (Qualifier) Patient has current or prior documentation of LVEF less than or equal to 40%, or mod/servere depressed LVSF?: Yes IF NO, STOP HERE If Yes, Heart Failure (Qualifier) Patient was prescribed or already taking an Angiotensin-Converting Enzyme (NICOLÁS) Inhibitor, or Antiotensin Receptor Garret (ARB): No Patient was prescribed or already taking bisoprolol, carvedilol, or sustained release metoprolol succinate: No If Medications not prescribed/taking Reason patient not prescribed/taking NICOLÁS or ARB: Medical reasons: allergy, intolerance, contraindication or other Reason patient not prescribed/taking bisoprolol, carvedilol, or sustained realease metoprolol succinate: Medical reasons: allergy, intolerance, contraindication or other
[2024-12-01 17:26] LABS: Glucose Point of Care 95 mg/dl (65-105)
[2024-12-01] MEDS: WARFARIN (*PBKC) 3 MG TABLET PO (17:31)
--- NOTE | 2024-12-01 18:00 | PCHDNOTE ---
Per LUAN Rodriguez taking care of pt in 260, pt will be discharging today, no need for dialysis hookup
--- NOTE | 2024-12-03 08:15 | PC.NURSE ---
Pleural effusion cx is negative.
== END 2024-12-01 18:15 | disposition home or self-care (01) | DRG 193 ==
LOC: ANHED 20:38 → ANHIMU 21:25 → ANH2MED 11-25 13:37
PROVIDERS: Internal Medicine; Internal Medicine Nephrology; Nurse Practitioner Gerontology; Admitting Provider General Practice; Emergency Provider Registered Nurse; PCP Family Medicine; Visit Provider Internal Medicine
DX: J18.9 Pneumonia, unspecified organism (principal); I21.A1 Myocardial infarction type 2; I50.43 Acute on chronic combined systolic (congestive) and diastolic (congestive) heart failure; N18.6 End stage renal disease; I13.2 Hypertensive heart and chronic kidney disease with heart failure and with stage 5 chronic kidney disease, or end stage renal disease; J44.1 Chronic obstructive pulmonary disease with (acute) exacerbation; J90 Pleural effusion, not elsewhere classified; E10.22 Type 1 diabetes mellitus with diabetic chronic kidney disease; E10.65 Type 1 diabetes mellitus with hyperglycemia; E78.5 Hyperlipidemia, unspecified; E66.9 Obesity, unspecified; I48.0 Paroxysmal atrial fibrillation; D63.1 Anemia in chronic kidney disease; G47.33 Obstructive sleep apnea (adult) (pediatric); I25.10 Atherosclerotic heart disease of native coronary artery without angina pectoris; K21.9 Gastro-esophageal reflux disease without esophagitis; Z79.01 Long term (current) use of anticoagulants; Z79.85 Long-term (current) use of injectable non-insulin antidiabetic drugs; Z79.82 Long term (current) use of aspirin; Z79.4 Long term (current) use of insulin; Z99.2 Dependence on renal dialysis; Z86.718 Personal history of other venous thrombosis and embolism; Z95.1 Presence of aortocoronary bypass graft; Z95.5 Presence of coronary angioplasty implant and graft; Z90.49 Acquired absence of other specified parts of digestive tract; Z95.4 Presence of other heart-valve replacement; Z99.89 Dependence on other enabling machines and devices; Z91.199 Patient's noncompliance with other medical treatment and regimen due to unspecified reason
CPT/HCPCS: 32555; 36415; 71046; 71250; 74018; 74176; 80053; 80069; 80307; 81001; 82042; 82150; 82945; 82948; 83605; 83615; 83735; 83880; 83986; 84100; 84155; 84157; 84311; 84478; 84484; 85025; 85027; 85610; 85730; 86140; 87040; 87070; 87075; 87086; 87205; 87641; 88108; 88305; 89051; 90945; 93005; 94640; 96365; 96368; 96375; 99285; A9270; G0378; J0456; J0696; J1171; J1644; J1815; J1938; J2270; J2919; J7030; J7042; J7070

== ENCOUNTER 2024-12-11 13:22 | Outpatient (CLI) | payer MEDICARE, MEDICAID, SELFPAY ==
--- OUTSIDE RECORDS SUMMARY | 2024-12-11 15:03 | XMS_ITS ---
Author Organization [facility] Address [address] [place] [address] Care Team Providers Care Paint Spray Tender Name Role Phone Aditya Castro MD Primary Care Provider [phone] Alondra Lambert RN Unavailable [phone] Shannon Brock MD, [place] P. Unavailable [phone] Leandro Reyes MD Unavailable [phone] Transplant Episode Kidney Candidate [facility] ([place], [place]) [facility] Evaluation began on 05/10/2024 Marked as Active on 05/10/2024 Reason: Evaluation - Standard Kidney CoordinatorAlondra Lambert RN Fax: N/A Email: N/A Scores Score Value Updated Exceptions/Reas ons CPRA Not available EPTS (Calc) 79 12/11/2024 Care Team Name Role Phone Fax Email Alondra Lambert RN Kidney Coordinator [phone] N/A N/A Melany Kelly Primary Dietary Service Aide N/A N/A N/A Chris Richard Special Events Manager N/A N/A N/A Events Pre-Transplant Referred: 03/06/2024 Evaluation began: 05/10/2024 Dialysis History Dialysis History Start End Type Comments Center 10/16/2019 Peritoneal [facility] Dialysis [facility] Information Center Phone Fax Address [facility] [phone] [address] [facility] [address] [facility] [id number]
--- OUTSIDE RECORDS SUMMARY | 2024-12-11 15:03 | XMS_ITS | Clinical Summary ---
Author Organization [facility] Address [address] [place] [address] Care Team Providers Care Collections Attorney Name [...] tablet Take 30 mg by mouth daily patient escort. Active clopidogrel (PLAVIX) 75 mg Tablet Take [...] Take 50,000 Units by mouth. Active Insulin Prospect, Disposable, (TRUEPLUS PEN NEEDLE) 31 gauge x [...] (06/29/2022): Added automatically from request for surgery [id number] Right upper quadrant pain 09/24/2020 Pre-transplant evaluation for kidney transplant 03/24/2020 Overview (06/29/2022): Images from the original note were not included. Juvenal Daigle 1970 Referring Operations Superintendent: Leandro Reyes Dialysis Info: Type: PD Time: 160 days (11/05/2019) Blood Type: A Body mass index is 37.8 kg/m . ALERTS Commercial Floor Covering Installer: Vashti Lizama NP Past Medical History: Diagnosis Date Anemia Arthritis Arthropathy osteo. back and knees see Dr. Norton CAD (coronary artery disease) Community acquired pneumonia 2017 [facility] hospitalized with double pneumonia Congestive heart failure Coronary artery disease Diabetes mellitus type 1 teens dx when he was 13. Insulin since he was dx. Insulin pump currently with dexacom. Vashti Lizama NP is retail branch manager. DM (diabetes mellitus) TYPE 1 DVT (deep venous thrombosis) 2017 [facility]. ESRD on peritoneal dialysis Gout History of blood transfusion 2017 during admission for [place] HLD (hyperlipidemia) HTN (hypertension) Hypercholesteremia 5 years on med Hypertension 30's on medications. Kidney disease Myocardial infarction 2017 [facility]. Stent x1 placed. Neuropathy feet Obstructive [...] It is the impression of this social studies department chair that uJvenal Daigle has several positive factors for Kidney [...] advised of safety concerns regarding immunosuppressants. Plan: sorting livestock worker to provide supportive services as needed. Patient appears to be a reasonable candidate for transplant from a psychosocial perspective. -Post transplant arrangement forms are needed prior to being listed. Psychiatric Consult Recommended: No Transplant Furnace Operator Oil Or Gas: Radha Roper LCSW RD:05/14/2020 BMI= 40.0, Class [...] cm (5' 10 ) 06/29/2022 6:00 PM CROWN POUNCER Body Mass Index 37.74 06/29/2022 6:00 PM CROWN POUNCER Plan of Treatment Health Maintenance Due Date [...] T d or Tdap) 10/21/2029 10/22/2019 Insurance AENA O MCR Advance Directives For more information, please contact: [phone] * Full Code (Latest Code Status on File) Date Activated Date Inactivated Comments 06/29/2022 2:49 PM 07/08/2022 4:30 PM Care Teams Collections Attorney Relationship Specialty Start Date End Date Aditya Castro MD PCP - General Student in an Organized Health Care Education/Training Program 09/11/18
--- OUTSIDE RECORDS SUMMARY | 2024-12-11 15:04 | XMS_ITS | Encounter Summary ---
Author Organization [facility] Address [address] [address] Phone Care Team Providers Care Campaign Management Senior Manager Name Role Phone Unavailable Primary Care Provider Unavailabl e Reason for Visit * Reason Comments Med Refill Encounter Details Date Type Department Care Team (Late st Contact Info) Description 10/08/2019 Refill [facility] [address] [address] Leandro Reyes MD [address] [address] Social History Tobacco Use Types Packs/Day Years Used Date Smoking Tobacco: Never Smokeless Tobacco: Never Alcohol Use Standard Drinks/Week Comments No 0 (1 standard drink = 0.6 oz pur e alcohol) Sex and Gender Information Value Date Recorded Sex Assigned at Not on file Legal Sex Male 9:05 AM MST Gender Identity Not on file Sexual Orientation Not on file documented as of this encounter Plan of Treatment Not on file documented as of this encounter Visit Diagnoses Not on filedocumented in this encounter
--- OUTSIDE RECORDS SUMMARY | 2024-12-11 15:04 | XMS_ITS | Clinical Summary ---
Author Organization [facility] Address [address] [place] [address] Care Team Providers Care Microbiology Coordinator Name Role Phone Aditya Castro MD Primary Care Provider [phone] Alondra Lambert RN Unavailable [phone] Shannon Brock MD, Hamlet P. Unavailable [phone] Leandro Reyes MD Unavailable [phone] Allergies Active Allergy Reactions Criticality Noted Date [...] PUMP: Continue Omnipod 5 insulin pump with Dailybreak [employer] G6 CGM at home settings: TIME BASAL [...] (25 mcg total) by mouth director of optimization before breakfast 30 tablet 1 11/04/19 24 [...] mg SL tablet 12/28/19 18 Active peg 949-wvvhzhzntyiq-vi ycerin (ARTIFICAL TEARS) 1-0.2-0.2 % ophthalmic solution 1 drop 4 (four) times a day 07/07/20 22 Active potassium chloride ER 20 mEq CR tablet Active Active Problems Problem Noted Date Diagnosed Date End stage renal disease 07/29/2024 Nonrheumatic aortic valve stenosis 11/22/2023 Status post aortic valve replacement 11/22/2023 Status post coronary artery bypass grafting 10/2023 CAD in [place] artery 10/13/2023 Anemia 06/22/2022 Assessment & Plan (06/29/2022 10:12 AM GUEST RELATIONS AGENT): Stable, likely 2/2 anemia from ESRD, no [...] 06/22/2022 Assessment & Plan (06/29/2022 10:12 AM GUEST RELATIONS AGENT): - Renal consulted, s/p CRRT in the ICU now back on PD. Tolerated well and nephrology following - Trialysis catheter removed - Continue vitamins for renal bone mineral disease. Assessment & Plan (06/28/2022 3:29 PM GUEST RELATIONS AGENT): - Renal consulted, s/p CRRT in the [...] 06/22/2022 Assessment & Plan (06/29/2022 10:12 AM GUEST RELATIONS AGENT): C/b cardiogenic shock requiring impella in the setting of cath and AHRF 2/2 pulmonary edema, now resolved. TTE demonstrating recovered EF 65% with grade I diastolic dysfunction. - metop as above - continue low dose losartan 12.5mg daily, ok per nephro. Tolerating well - volume management per PD Assessment & Plan (06/28/2022 3:29 PM GUEST RELATIONS AGENT): C/b cardiogenic shock requiring impella in the [...] 06/22/2022 Assessment & Plan (06/29/2022 10:12 AM GUEST RELATIONS AGENT): Converted to NSR overnight on 06/24. CHADsVASc of 4 not on anticoagulation prior to admission. - cardiology consulted - recommended ongoing rate control - holding off on a/c with high risk for bleeding while on DAPT - reduced metop to 25mg BID in the setting of hypotension, HR 70s NSR Assessment & Plan (06/28/2022 3:30 PM GUEST RELATIONS AGENT): Converted to NSR overnight on 06/24. CHADsVASc [...] 08/22/2021 Assessment & Plan (06/29/2022 10:11 AM GUEST RELATIONS AGENT): With recurrent chest pain post-cath. He has [...] today Assessment & Plan (06/28/2022 3:30 PM GUEST RELATIONS AGENT): With recurrent chest pain post-cath. He has [...] 06/22/2022 Assessment & Plan (06/29/2022 10:11 AM GUEST RELATIONS AGENT): Secondary to NSTEMI, s/p Impella since removed on 06/10. Resolved. Assessment & Plan (06/23/2022 4:55 PM CDT): Secondary to NSTEMI, s/p Impella since removed on 06/10. Resolved. Assessment & Plan (06/22/2022 8:22 PM CDT): -Secondary to NSTEMI, s/p Impella since removed on 06/10. Acute hypoxemic respiratory failure 06/09/2022 Assessment & Plan (06/29/2022 10:12 AM GUEST RELATIONS AGENT): Secondary to ACS and flash pulmonary edema, [...] (06/10/2022): Added automatically from request for surgery [id number] Abnormal cardiovascular stress test 12/29/2020 Overview (12/29/2020): Added automatically from request for surgery [id number] Coronary artery disease of n ative artery of [place] heart with stable angina pectoris ([facility]) 05/23/2017 History of [...] 01/18/2013 Assessment & Plan (06/29/2022 10:12 AM GUEST RELATIONS AGENT): A1c well controlled on admission. He uses [...] session Assessment & Plan (06/28/2022 3:28 PM GUEST RELATIONS AGENT): A1c well controlled on admission. He uses [...] Encounters Date Type Department Care Team Description 12/06/2024 Documentation [facility] [address] Mailstop [id number] [place] [address] Alondra Lambert, LUAN 11/06/2024 Documentation [facility] [address] Mailstop [id number] [place] [address] Melany Kelly Appointment/Schedules 11/05/2024 Telephone [facility] [address] [facility] [address] Mailstop [id number] [place] [address] Alondra Lambert, RN 09/12/2024 Orders Only [facility] [address] [place] [address] Lalit Machuca MD from Last [...] materials from doctor or pharmacy Never 12/01/2023 [facility] Utilities Answer Date Recorded In the past 12 months has th e b3 bio, gas, oil, or water [employer] threatened to shut off services in your [...] How often do you attend buddhist or orthodox serv ices? Never 08/01/2024 Do [...] any time in the past 12 m [facility], were you homeless or living [...] file Legal Sex Male 3:42 AM GUEST RELATIONS AGENT Gender Identity Not on file Sexual Orientation Not on file Obstetrics History Last Filed Vital Signs Vital Sign Reading Time Taken Comments Blood Pressure 122/75 07/29/2024 1:00 PM GUEST RELATIONS AGENT Pulse 116 07/29/2024 1:00 PM GUEST RELATIONS AGENT Temperature 36.8 C (98.2 F) 07/29/2024 1:00 PM GUEST RELATIONS AGENT Respiratory Rate 16 12/01/2023 11:1 3 AM CDT Oxygen Saturation 96% 12/01/2023 11: 13 AM CDT Inhaled Oxygen Concentration - - Weight 121.2 kg (267 lb 1.6 oz) 07/29/2024 1:00 PM GUEST RELATIONS AGENT Height 177.8 cm (5' 10 ) 07/29/2024 1:00 PM GUEST RELATIONS AGENT Body Mass Index 38.32 07/29/2024 1:00 PM GUEST RELATIONS AGENT Plan of Treatment Health Maintenance Due Date [...] 03/23/2017, 03/26/2015 Medical Devices Implanted Type Area Director Ehs Device Identifier Shelf Expiration Date Model / Serial / Lot Kyle Vascular Device Clsr Perclose Prostyle Sut-Mediatd Closure-Repair Sys 33263-04 - [id number] Implanted:Qty: 1 on 06/10/2022 by Champ Osborne MD PhD at [facility] Other - see comments Right: Femoral [employer] 01/19/2024 [id number] / / [id number] [place] [employer] Mary Synergy Xd Monorail 2.5mm 48mm 144cm Delivery System 1 Access [id number] - [id number] Implanted:Qty: 1 on 06/07/2022 by Champ Osborne MD PhD at [facility] Stent [place] [employer] Mary 10/27/2023 [id number] / / [id number] [place] [employer] Mary Synergy Xd Monorail 3mm 24mm 144cm Delivery System 1 Access Port [id number] - [id number] Implanted:Qty: 1 on 06/07/2022 by Champ Osborne MD PhD at [facility] Stent [place] [employer] Mary 07/28/2023 [id number] / / [id number] [place] [employer] Synergy Xd Monorail 2.5mm 12mm 144cm Delivery System 1 Access [id number] - [id number] - [id number] Implanted:Qty: 1 on 06/07/2022 by Champ Osborne MD PhD at [facility] Stent [place] [employer] Mary 05/03/2023 [id number] / [id number] / [id number] Daig Mary [id number] Device Closure Angio-Seal Vip Bondek-Plus Polyglyd L70 Cm Od6 Fr Odsec.035 In Vascular - [id number] Implanted:Qty: 1 on 01/21/2021 by Hamlet Ortega Jr., MD at [facility] Left: Groin [employer] Mary [id number] / / Kyle Vascular Device Clsr Perclose Prostyle Sut-Mediatd Closure-Repair Sys 63486-62 - [id number] Implanted:Qty: 1 on 06/07/2022 by Champ Osborne MD PhD at [facility] Kyle [employer]ascular 01/19/2024 [id number] / [id number] Kyle V[employer] Device Clsr Perclose Prostyle Sut-Mediatd Closure-Repair Sys 12574-61 - [id number] Implanted:Qty: 1 on 06/07/2022 by Champ Osborne MD PhD at [facility] Kyle Vascular 11/19/202354975-53 / [id number] Bard Access Systems Power-Trialysis 13fr 30cm 3 Lumen Kink Resistance Symmetric Tip [id number] - [id number] Implanted:Qty: 1 on 06/07/2022 by Champ Osborne MD PhD at [facility] Right: Jugular Ramirez Chapito 07/20/2024 [id number] / / [id number] [employer] Impella Cp Percutaneous Left Ventricular Assist Device 4987-6446 - [id number] Implanted:Qty: 1 on 06/07/2022 by Champ Osborne MD PhD at [facility] Left: Ventricle [employer] Inc [id number] / / Bard Access Systems Power-Trialysis 13fr 20cm 3 Lumen Short Term Dialysis Straight [id number] - [id number] Implanted:Qty: 1 on 06/18/2022 at [facility] Ramirez Chapito 07/20/2024 [id number] / / [id number] Rl Biomet Inc Screw Bone Slf Drl Full Thread Locking 3.5x14mm Ti 100.035.14 - [id number] Implanted:Qty: 6 on 10/17/2023 by Lorne Mcnulty MD at [facility] N/A: Sternum Rl [employer] Inc 100.035.1 4 / / Rl Biomet Inc Plate Bone Low Profile 6 Hole H Shape Sternum Ti 115.102.06 - [id number] Implanted:Qty: 2 on 10/17/2023 by Lorne Mcnulty MD at [facility] N/A: Sternum [employer]l [employer] Inc 115.102.0 6 / / Rl [employer] Inc Plate Bone Low Profile 6 Hole O Shape Sternum Ti 115.104.06 - [id number] Implanted:Qty: 1 on 10/17/2023 by Lorne Mcnulty MD at [facility] N/A: Sternum [employer] 115.104.0 6 / / On-X Intrnl Valve Coronary Aortic Mechanical On X 25mm Onxane-25 - [id number] - [id number] Implanted:Qty: 1 on 10/17/2023 by Lorne Mcnulty MD at [facility] N/A: Heart On-X Intrnl 01/22/2028 ONXANE- / [id number] / Rl Biomet Inc Screw Bone Slf Drl Full Thread Locking 3.5x18mm Ti 100.035.18 - [id number] Implanted:Qty: 12 on 10/17/2023 by Lorne Mcnulty MD at [facility] N/A: Sternum Rl [employer] Inc 100.035.1 8 / / Explanted Type Area Director Ehs Device Identifier Shelf Expiration Date Model / Serial / Lot Bard Peripheral Vascular Bard .25x.25in [place] Thk1.65mm Square [employer] Ptfe [id number] - [id number] Explanted:Qty: 1 on 10/17/2023 by Lorne Mcnulty MD at [facility] N/A: Heart Bard Peripheral Vascular 05/18/2026 [id number] / / Procedures Procedure Name Priority Date/Time Associated Diagnosis Comments HEPATITIS C ANTIBODY Routine 07/29/2024 11:01 AM GUEST RELATIONS AGENT End stage renal disease (HCC) EGFR Routine 07/29/2024 11:01 AM GUEST RELATIONS AGENT End stage renal disease (HCC) HEMOGLOBIN A1C Routine 07/29/2024 11:01 AM GUEST RELATIONS AGENT End stage renal disease (HCC) LIPID PANEL Routine 07/29/2024 11:01 AM GUEST RELATIONS AGENT End stage renal disease (HCC) PSA SCREEN Routine 07/29/2024 11:01 AM GUEST RELATIONS AGENT End stage renal disease (HCC) TSH Routine 10/27/2023 2:30 AM GUEST RELATIONS AGENT from Last 3 Months or Most Recently Relevant to Health Maintenance Results * (ABNORMAL) eGFR (07/29/2024 11:01 AM GUEST RELATIONS AGENT) eGFR 7(L) >=60 mL/min/1. 73 m2 Comment: [...] reviewed 2021. Blood 07/29/2024 11:0 1 AM GUEST RELATIONS AGENT 07/29/2024 11:33 AM GUEST RELATIONS AGENT us Jossie King MD LAB BLOOD ORDERABL ES Final Result [facility] [address] Department [place] [address] * PSA screen (07/29/2024 11:01 AM GUEST RELATIONS AGENT) PSA-Total 0.55 <=3.90 ng/mL Comment: Interpretive Data [...] revised 21. Blood 07/29/2024 11:0 1 AM GUEST RELATIONS AGENT 07/29/2024 11:33 AM GUEST RELATIONS AGENT Narrative [facility] - 07/29/2024 12:39 PM GUEST RELATIONS AGENT This lab is being obtained as part of a Kidney transplant evaluation, is time sensitive, and should only be drawn during the evaluation visit at [address] Lab[address] Jossie King MD LAB BLOOD ORDERABL ES Final Result Performing Organization Address [facility] Co de Phone Number [facility] Department [place] [employer] [address] * Hepatitis C antibody Blood (07/29/2024 11:01 AM GUEST RELATIONS AGENT) Pathologist [facility] Hep C Ab Nonreactive Nonreactive Comment:Antibodies to HCV no t detected. Does NOT exclude the possibility of recent exposure to HCV. Current interpretive data was last revised on 22 Blood 07/29/2024 11:0 1 AM GUEST RELATIONS AGENT 07/29/2024 11:32 AM GUEST RELATIONS AGENT Narrative [facility] - 07/29/2024 12:47 PM GUEST RELATIONS AGENT This lab is being obtained as part of a Kidney transplant evaluation, is time sensitive, and should only be drawn during the evaluation visit at [address] Jossie King MD LAB MICROBIOLOGY - GENERAL ORDERABLES Final Result Performing Organization Address City/[facility]/ZIP Co de Phone Number [facility] [place] [employer] [place] [address] * (ABNORMAL) Hemoglobin A1c (07/29/2024 11:01 AM GUEST RELATIONS AGENT) Pathologist [facility] Hgb A1C 9.0(H) 4.0 - 5.6 % Estimated Average Glucose 212 mg/dL [facility] Comment: The ADA recommends reporting an estimated Average Glucose (eAG) with all Hemoglobin A1c results using the equation derived from a study of 507 normal and diabetic adults. Minority populations were underrepresented and children were not included. (Diabetes Care 2020; 43(S1): S66-S76). The eAG is not equivalent to a fasting glucose. Blood 07/29/2024 11:0 1 AM GUEST RELATIONS AGENT 07/29/2024 11:34 AM GUEST RELATIONS AGENT Narrative [facility] - 07/29/2024 11:53 AM GUEST RELATIONS AGENT This lab is being obtained as part of a Kidney transplant evaluation, is time sensitive, and should only be drawn during the evaluation visit at [facility] Lab. Jossie King MD LAB BLOOD ORDERABL ES Final Result [facility] [address] Department [place] [address] * (ABNORMAL) Lipid panel (07/29/2024 11:01 AM GUEST RELATIONS AGENT) Cholesterol 114 30 - 199 mg/dL Comment: [...] revised on 2018. Triglycerides 66 <=149 mg/dL [facility] Comment: Interpretive Data Ages < or [...] on 2018. HDL 29(L) >=40 mg/dL [facility] Comment: Interpretive Data Ages < or [...] 2018. LDL, calculated 71 <=129 mg/dL [facility] Comment: Interpretive Data Ages < or [...] 2004;110:227 3. Jose Mata al. TYRONE Cardiol. 2020 December 19;5(5):540-548. doi: 10.1001/jamacardio.2020.0013 Current Interpretive Data was last revised on 2024. Non-HDL Cholesterol 85 mg/dL [facility] Comment: Interpretive Data Ages < or [...] last revised on 2018. Chol/HDL ratio 4 [facility] Blood 07/29/2024 11:0 1 AM GUEST RELATIONS AGENT 07/29/2024 11:33 AM GUEST RELATIONS AGENT Narrative [facility] - 07/29/2024 12:10 PM GUEST RELATIONS AGENT This lab is being obtained as part of a Kidney transplant evaluation, is time sensitive, and should only be drawn during the evaluation visit at [facility] Lab. us Jossie King MD LAB BLOOD ORDERABL ES Final Result [facility] [address] Department [place] [address] * (ABNORMAL) TSH (10/27/2023 2:30 AM GUEST RELATIONS AGENT) Thyroid Stimulating Hormone 13.20(H) 0.30 - 4.20 mcIUnit/mL Blood 10/27/2023 2:30 AM GUEST RELATIONS AGENT 10/27/2023 2:42 AM GUEST RELATIONS AGENT us Lorne Mcnulty MD LAB BLOOD ORDERABLES Final Result [facility] [address] Department [place] [address] from Last 3 Months or Most Recently Relevant to Health Maintenance Insurance [employer] [facility] MEDICARE ADVANTAGE [place] [facility] MEDICARE ADVANTAGE TRANSPLANT [employer] MEDICARE RISK [employer] [place] [id number] Advance Directives For more information, please contact: [phone] * Full Code (Latest Code Status on File) Date Activated Date Inactivated Comments 10/13/2023 11:32 PM 11/03/2023 11:42 PM * Full Code Date Activated Date Inactivated Comments 06/05/2022 6:17 AM 06/29/2022 6:20 PM * Full Code Date Activated Date Inactivated Comments 06/05/2022 4:43 AM 06/05/2022 4:43 AM * Full Code Date Activated Date Inactivated Comments 06/04/2022 9:55 PM 06/05/2022 4:43 AM Care Teams Microbiology Coordinator Relationship Specialty Start Date End Date Aditya Castro MD [address] [facility] [place] [address] PCP - General 10/17/19 Alondra Lambert, RN [address] [address] [place] 03/06/24 Hamlet Ortega Jr., MD [address] [place] [address] Consulting Physician Cardiovascular Disease 05/10/24 Leandro Reyes MD [address] [facility] 1 [place] [address] Consulting Physician Nephrology 07/30/24
--- OUTSIDE RECORDS SUMMARY | 2024-12-11 15:04 | XMS_ITS | Encounter Summary ---
Author Organization [facility] Address [address] [place] [address] Phone Care Team Providers Care Field Mechanic Name Role Phone Unavailable Primary Care Provider Unavailabl e Reason for Visit * Reason Comments Med Refill Encounter Details Date Type Department Care Team (Late st Contact Info) Description 01/25/2019 Refill [facility] [address] [facility] 1 [place] [address] Leandro Reyes MD [address] [facility] 1 [place] [address] Social History Tobacco Use Types [...]
--- OUTSIDE RECORDS SUMMARY | 2024-12-11 15:04 | XMS_ITS ---
Author Organization [facility] Address [address] [place] [address] Care Team Providers Care Build And Deployment Engineer Name Role Phone Aditya Castro MD Primary Care Provider [phone] Alondra Lambert RN Unavailable [phone] Shannon Brock MD, [place] P. Unavailable [phone] Leandro Reyes MD Unavailable [phone] Dialysis Access Sites Type Status Location Placement Date Removal Da te Peritoneal Dialysis Catheter Continuous cycling Active Hemodialysis Cath Double Inactive Right N emiliano (side) - Anterior 06/18/2022 06/25/2022 Hemodialysis Cath Triple Inactive Neck - Anterior 202106/16/2022 Procedures Procedure Name Priority Date/Time Associated Diagnosis Comments HEPATITIS C ANTIBODY Routine 07/29/2024 11:01 AM [facility] End stage renal disease (HCC) EGFR Routine 07/29/2024 11:01 AM [facility] End stage renal disease (HCC) HEMOGLOBIN A1C Routine 07/29/2024 11:01 AM [facility] End stage renal disease (HCC) LIPID PANEL Routine 07/29/2024 11:01 AM [facility] End stage renal disease (HCC) PSA SCREEN Routine 07/29/2024 11:01 AM [facility] End stage renal disease (HCC) TSH Routine 10/27/2023 2:30 AM [facility] from Last 3 Months or Most Recently [...] PUMP: Continue Omnipod 5 insulin pump with GuestSpan G6 CGM at home settings: TIME BASAL [...] 1 tablet (25 mcg total) by mouth commercial kitchen service technician before breakfast 30 tablet 1 11/04/19 [...] mg SL tablet 12/28/19 18 Active peg 222-txgjmugozirh-lu ycerin (ARTIFICAL TEARS) 1-0.2-0.2 % ophthalmic solution 1 drop 4 (four) times a day 07/07/20 22 Active potassium chloride ER 20 mEq CR tablet Active Active Problems Problem Noted Date Diagnosed Date End stage renal disease 07/29/2024 Nonrheumatic aortic valve stenosis 11/22/2023 Status post aortic valve replacement 11/22/2023 Status post coronary artery bypass grafting 10/2023 CAD in [place] artery 10/13/2023 Anemia 06/22/2022 Assessment & Plan (06/29/2022 10:12 AM [facility]): Stable, likely 2/2 anemia from ESRD, no [...] 06/22/2022 Assessment & Plan (06/29/2022 10:12 AM [facility]): - Renal consulted, s/p CRRT in the ICU now back on PD. Tolerated well and nephrology following - Trialysis catheter removed - Continue vitamins for renal bone mineral disease. Assessment & Plan (06/28/2022 3:29 PM [facility]): - Renal consulted, s/p CRRT in the [...] 06/22/2022 Assessment & Plan (06/29/2022 10:12 AM [facility]): C/b cardiogenic shock requiring impella in the setting of cath and AHRF 2/2 pulmonary edema, now resolved. TTE demonstrating recovered EF 65% with grade I diastolic dysfunction. - metop as above - continue low dose losartan 12.5mg daily, ok per nephro. Tolerating well - volume management per PD Assessment & Plan (06/28/2022 3:29 PM [facility]): C/b cardiogenic shock requiring impella in the [...] 06/22/2022 Assessment & Plan (06/29/2022 10:12 AM [facility]): Converted to NSR overnight on 06/24. CHADsVASc of 4 not on anticoagulation prior to admission. - cardiology consulted - recommended ongoing rate control - holding off on a/c with high risk for bleeding while on DAPT - reduced metop to 25mg BID in the setting of hypotension, HR 70s NSR Assessment & Plan (06/28/2022 3:30 PM [facility]): Converted to NSR overnight on 06/24. CHADsVASc [...] 08/22/2021 Assessment & Plan (06/29/2022 10:11 AM [facility]): With recurrent chest pain post-cath. He has [...] today Assessment & Plan (06/28/2022 3:30 PM [facility]): With recurrent chest pain post-cath. He has [...] 06/22/2022 Assessment & Plan (06/29/2022 10:11 AM [facility]): Secondary to NSTEMI, s/p Impella since removed on 06/10. Resolved. Assessment & Plan (06/23/2022 4:55 PM CDT): Secondary to NSTEMI, s/p Impella since removed on 06/10. Resolved. Assessment & Plan (06/22/2022 8:22 PM CDT): -Secondary to NSTEMI, s/p Impella since removed on 06/10. Acute hypoxemic respiratory failure 06/09/2022 Assessment & Plan (06/29/2022 10:12 AM [facility]): Secondary to ACS and flash pulmonary edema, [...] (06/10/2022): Added automatically from request for surgery [id number] Abnormal cardiovascular stress test 12/29/2020 Overview (12/29/2020): Added automatically from request for surgery [id number] Coronary artery disease of n ative artery of [place] heart with stable angina pectoris ([facility]) 05/23/2017 History of coronary artery stent [...] 01/18/2013 Assessment & Plan (06/29/2022 10:12 AM [facility]): A1c well controlled on admission. He uses [...] session Assessment & Plan (06/28/2022 3:28 PM [facility]): A1c well controlled on admission. He uses [...] from doctor or pharmacy Never 12/01/2023 [facility] Utilities Answer Date Recorded In [...] often do you attend oriental orthodox or restoration serv ices? Never 08/01/2024 Do you belong [...] any time in the past 12 m [facility], were you homeless or [...] on file Legal Sex Male 3:42 AM [facility] Gender Identity Not on file Sexual Orientation Not on file Last Filed Vital Signs Vital Sign Reading Time Taken Comments Blood Pressure 122/75 07/29/2024 1:00 PM [facility] Pulse 116 07/29/2024 1:00 PM [facility] Temperature 36.8 C (98.2 F) 07/29/2024 1:00 PM [facility] Respiratory Rate 16 12/01/2023 11:1 3 AM CDT Oxygen Saturation 96% 12/01/2023 11: 13 AM CDT Inhaled Oxygen Concentration - - Weight 121.2 kg (267 lb 1.6 oz) 07/29/2024 1:00 PM [facility] Height 177.8 cm (5' 10 ) 07/29/2024 1:00 PM [facility] Body Mass Index 38.32 07/29/2024 1:00 PM [facility] Results * (ABNORMAL) eGFR (07/29/2024 11:01 AM [facility]) eGFR 7(L) >=60 mL/min/1. 73 m2 Comment: [...] reviewed 2021. Blood 07/29/2024 11:0 1 AM [facility] 07/29/2024 11:33 AM [facility] Jossie King MD LAB BLOOD ORDERABL ES Final Result [facility] Department [place] [address] * PSA screen (07/29/2024 11:01 AM [facility]) PSA-Total 0.55 <=3.90 ng/mL Comment: Interpretive Data [...] revised 21. Blood 07/29/2024 11:0 1 AM [facility] 07/29/2024 11:33 AM [facility] Narrative [facility] - 07/29/2024 12:39 PM [facility] This lab is being obtained as part of a Kidney transplant evaluation, is time sensitive, and should only be drawn during the evaluation visit at [address] Jossie King MD LAB BLOOD ORDERABL ES Final Result Performing Organization Address [facility] Co de Phone Number [facility] [place] [address] * Hepatitis C antibody Blood (07/29/2024 11:01 AM [facility]) [facility] Hep C Ab Nonreactive Nonreactive Comment:Antibodies to HCV no t detected. Does NOT exclude the possibility of recent exposure to HCV. Current interpretive data was last revised on 22 Blood 07/29/2024 11:0 1 AM [facility] 07/29/2024 11:32 AM [facility] Narrative [facility] - 07/29/2024 12:47 PM [facility] This lab is being obtained as part of a Kidney transplant evaluation, is time sensitive, and should only be drawn during the evaluation visit at [address] Jossie King MD LAB MICROBIOLOGY - GENERAL ORDERABLES Final Result Performing Organization Address City/[facility]/ZIP Co de Phone Number [facility] [address] * (ABNORMAL) Hemoglobin A1c (07/29/2024 11:01 AM [facility]) [facility] Hgb A1C 9.0(H) 4.0 - 5.6 % Estimated Average Glucose 212 mg/dL [facility] Comment: The ADA recommends reporting an estimated Average Glucose (eAG) with all Hemoglobin A1c results using the equation derived from a study of 507 normal and diabetic adults. Minority populations were underrepresented and children were not included. (Diabetes Care 2020; 43(S1): S66-S76). The eAG is not equivalent to a fasting glucose. Blood 07/29/2024 11:0 1 AM [facility] 07/29/2024 11:34 AM [facility] Narrative [facility] - 07/29/2024 11:53 AM [facility] This lab is being obtained as part of a Kidney transplant evaluation, is time sensitive, and should only be drawn during the evaluation visit at [facility] us Jossie King MD LAB BLOOD ORDERABL ES Final Result [facility] Department [place] [address] * (ABNORMAL) Lipid panel (07/29/2024 11:01 AM [facility]) Cholesterol 114 30 - 199 mg/dL Comment: [...] revised on 2018. Triglycerides 66 <=149 mg/dL [facility] Comment: Interpretive Data Ages [...] on 2018. HDL 29(L) >=40 mg/dL [facility] Comment: Interpretive Data Ages < or [...] 2018. LDL, calculated 71 <=129 mg/dL [facility] Comment: Interpretive Data Ages < or [...] on 2024. Non-HDL Cholesterol 85 mg/dL [facility] Comment: Interpretive Data Ages < or [...] last revised on 2018. Chol/HDL [facility] 4 [facility] Blood 07/29/2024 11:0 1 AM [facility] 07/29/2024 11:33 AM [facility] Narrative [facility] - 07/29/2024 12:10 PM [facility] This lab is being obtained as part of a Kidney transplant evaluation, is time sensitive, and should only be drawn during the evaluation visit at [facility] us Jossie King MD LAB BLOOD ORDERABL ES Final Result [facility] Department [place] [address] * (ABNORMAL) TSH (10/27/2023 2:30 AM [facility]) Pathologist [facility] Thyroid Stimulating Hormone 13.20(H) 0.30 - 4.20 mcIUnit/mL Blood 10/27/2023 2:30 AM [facility] 10/27/2023 2:42 AM [facility] us Lorne Mcnulty MD LAB BLOOD ORDERABLES Final Result [facility] [address] Department [place] [address] from Last 3 Months or Most Recently Relevant to Health Maintenance
--- OUTSIDE RECORDS SUMMARY | 2024-12-11 15:04 | XMS_ITS | Referral Summary ---
Author Organization [facility] Address [address] [place] [address] Care Team Providers Care Nylon Machine Operator Name Role Phone Aditya Castro MD Primary Care Provider [phone] Alondra Lambert RN Unavailable [phone] Shannon Brock MD, Hamlet Gordon Unavailable [phone] Leandro Reyes MD Unavailable [phone] Encounters Date Type Department Care Team Description 12/06/2024 Documentation [facility] Transplant Kidney [address] [id number] [place] [address] Alondra Lambert RN 11/06/2024 Documentation [facility] [address] [phone] [place] [address] Melany Kelly Appointment/Schedules 11/05/2024 Telephone [facility] Transplant Kidney [address] [phone] [place] [address] Alondra Lambert, RN 09/12/2024 Orders Only [facility] [address] [place] [address] Lalit Machuca MD from Last [...] 1 tablet (25 mcg total) by mouth pharmaceutical sales representative before breakfast 30 tablet 1 11/04/19 [...] mg SL tablet 12/28/19 18 Active peg 051-uxiwdtcznxtg-im ycerin (ARTIFICAL TEARS) 1-0.2-0.2 % ophthalmic solution [...] 06/22/2022 Assessment & Plan (06/29/2022 10:12 AM SURGICAL SERVICES MANAGER): Stable, likely 2/2 anemia from ESRD, [...] 06/22/2022 Assessment & Plan (06/29/2022 10:12 AM SURGICAL SERVICES MANAGER): - Renal consulted, s/p CRRT in the ICU now back on PD. Tolerated well and nephrology following - Trialysis catheter removed - Continue vitamins for renal bone mineral disease. Assessment & Plan (06/28/2022 3:29 PM SURGICAL SERVICES MANAGER): - Renal consulted, s/p CRRT in [...] 06/22/2022 Assessment & Plan (06/29/2022 10:12 AM SURGICAL SERVICES MANAGER): C/b cardiogenic shock requiring impella in the setting of cath and AHRF 2/2 pulmonary edema, now resolved. TTE demonstrating recovered EF 65% with grade I diastolic dysfunction. - metop as above - continue low dose losartan 12.5mg daily, ok per nephro. Tolerating well - volume management per PD Assessment & Plan (06/28/2022 3:29 PM SURGICAL SERVICES MANAGER): C/b cardiogenic shock requiring impella in [...] 06/22/2022 Assessment & Plan (06/29/2022 10:12 AM SURGICAL SERVICES MANAGER): Converted to NSR overnight on 06/24. CHADsVASc of 4 not on anticoagulation prior to admission. - cardiology consulted - recommended ongoing rate control - holding off on a/c with high risk for bleeding while on DAPT - reduced metop to 25mg BID in the setting of hypotension, HR 70s NSR Assessment & Plan (06/28/2022 3:30 PM SURGICAL SERVICES MANAGER): Converted to NSR overnight on 06/24. [...] 08/22/2021 Assessment & Plan (06/29/2022 10:11 AM SURGICAL SERVICES MANAGER): With recurrent chest pain post-cath. He [...] today Assessment & Plan (06/28/2022 3:30 PM SURGICAL SERVICES MANAGER): With recurrent chest pain post-cath. He [...] 06/22/2022 Assessment & Plan (06/29/2022 10:11 AM SURGICAL SERVICES MANAGER): Secondary to NSTEMI, s/p Impella since removed on 06/10. Resolved. Assessment & Plan (06/23/2022 4:55 PM CDT): Secondary to NSTEMI, s/p Impella since removed on 06/10. Resolved. Assessment & Plan (06/22/2022 8:22 PM CDT): -Secondary to NSTEMI, s/p Impella since removed on 06/10. Acute hypoxemic respiratory failure 06/09/2022 Assessment & Plan (06/29/2022 10:12 AM SURGICAL SERVICES MANAGER): Secondary to ACS and flash pulmonary [...] (06/10/2022): Added automatically from request for surgery [id number] Abnormal cardiovascular stress test 12/29/2020 Overview (12/29/2020): Added automatically from request for surgery [id number] Coronary artery disease of n ative artery of [place] heart with stable angina pectoris ([facility]) 05/23/2017 History of coronary artery stent placement [...] 01/18/2013 Assessment & Plan (06/29/2022 10:12 AM SURGICAL SERVICES MANAGER): A1c well controlled on admission. He [...] session Assessment & Plan (06/28/2022 3:28 PM SURGICAL SERVICES MANAGER): A1c well controlled on admission. He [...] materials from doctor or pharmacy Never 12/01/2023 [facility] Utilities Answer Date Recorded In the past 12 months has th e [employer], gas, oil, or water [employer] threatened to shut off services in your home? No 08/01/2024 Social Connection and Isolation Panel [NHANES] A nswer Date Recorded In a typical week, how many times do you talk on the phone with family, friends, or neighbors? Twice a week 08/01/2024 How often do you get together with friends or re latives? Once a week 08/01/2024 How often do you attend uatsdin or faith serv ices? Never 08/01/2024 Do [...] any time in the past 12 m [facility], were you homeless or living in [...] file Legal Sex Male 3:42 AM SURGICAL SERVICES MANAGER Gender Identity Not on file Sexual Orientation Not on file Last Filed Vital Signs Vital Sign Reading Time Taken Comments Blood Pressure 122/75 07/29/2024 1:00 PM SURGICAL SERVICES MANAGER Pulse 116 07/29/2024 1:00 PM SURGICAL SERVICES MANAGER Temperature 36.8 C (98.2 F) 07/29/2024 1:00 PM SURGICAL SERVICES MANAGER Respiratory Rate 16 12/01/2023 11:1 3 AM CDT Oxygen Saturation 96% 12/01/2023 11: 13 AM CDT Inhaled Oxygen Concentration - - Weight 121.2 kg (267 lb 1.6 oz) 07/29/2024 1:00 PM SURGICAL SERVICES MANAGER Height 177.8 cm (5' 10 ) 07/29/2024 1:00 PM SURGICAL SERVICES MANAGER Body Mass Index 38.32 07/29/2024 1:00 PM SURGICAL SERVICES MANAGER Plan of Treatment Not on file Medical Devices Implanted Type Area Chemical Waste Management Technician Device Identifier Shelf Expiration Date Model / Serial / Lot Kyle Vascular Device Clsr Perclose Prostyle Sut-Mediatd Closure-Repair Sys 19029-44 - [id number] Implanted:Qty: 1 on 06/10/2022 by Champ Osborne MD PhD at [facility] Other - see comments Right: Femoral [employer] 01/19/2024 [id number] / / [id number] [employer] Mary Synergy Xd Monorail 2.5mm 48mm 144cm Delivery System 1 Access [id number] - [id number] Implanted:Qty: 1 on 06/07/2022 by Champ Osborne MD PhD at [facility] Stent [employer] Mary 10/27/2023 [id number] / / [id number] [employer] Mary Synergy Xd Monorail 3mm 24mm 144cm Delivery System 1 Access Port [id number] - [id number] Implanted:Qty: 1 on 06/07/2022 by Champ Osborne MD PhD at [facility] [employer] Mary 07/28/2023 [id number] / / [id number] [employer] [address] [employer] Mary Synergy Xd Monorail 2.5mm 12mm 144cm Delivery System 1 Access [id number] - [id number] - [id number] Implanted:Qty: 1 on 06/07/2022 by Champ Osborne MD PhD at [facility] Stent [employer] Mary 05/03/2023 [id number] / [id number] / [id number] Daig Mary [id number] Device Closure Angio-Seal Vip Bon[place]k-Plus Polyglyd L70 Cm Od6 Fr Odsec.035 In Vascular - [id number] Implanted:Qty: 1 on 01/21/2021 by Hamlet Ortega Jr., MD at [facility] Left: Groin [employer] Mary [id number] / / Kyle Vascular Device Clsr Perclose Prostyle Sut-Mediatd Closure-Repair Sys 09375-24 - [id number] Implanted:Qty: 1 on 06/07/2022 by Champ Osborne MD PhD at [facility] [employer] 01/19/2024 [id number] / / [id number] Kyle [employer] Device Clsr Perclose Prostyle Sut-Mediatd Closure-Repair Sys 29783-15 - [id number] Implanted:Qty: 1 on 06/07/2022 by Champ Osborne MD PhD at [facility] Kyle Vascular 11/19/2023 [id number] / / [id number] Bard Access Systems Power-Trialysis 13fr 30cm 3 Lumen Kink Resistance Symmetric Tip [id number] - [id number] Implanted:Qty: 1 on 06/07/2022 by Champ Osborne MD PhD at [facility] Right: Jugular [employer] 07/20/2024 [id number] / / [id number] [employer] Inc Impella Cp Percutaneous Left Ventricular Assist Device 3952-8702 - [id number] Implanted:Qty: 1 on 06/07/2022 by Champ Osborne MD PhD at [facility] Left: Ventricle [employer] Inc [id number] / / Bard Access Systems Power-Trialysis 13fr 20cm 3 Lumen Short Term Dialysis Straight [id number] - [id number] Implanted:Qty: 1 on 06/18/2022 at [facility] [employer] 07/20/2024 [id number] / / [id number] Rl Biomet Inc Screw Bone Slf Drl Full Thread Locking 3.5x14mm Ti 100.035.14 - [id number] Implanted:Qty: 6 on 10/17/2023 by Lorne Mcnulty MD at [facility] N/A: Sternum R[employer] Inc 100.035.1 4 / / Rl [employer] Inc Plate Bone Low Profile 6 Hole H Shape Sternum Ti 115.102.06 - [id number] Implanted:Qty: 2 on 10/17/2023 by Lorne Mcnulty MD at [facility] N/A: Sternum [employer] Inc 115.102.0 6 / / Rl [employer] Inc Plate Bone Low Profile 6 Hole O Shape Sternum Ti 115.104.06 - [id number] Implanted:Qty: 1 on 10/17/2023 by Lorne Mcnulty MD at [facility] N/A: Sternum [employer] 115.104.0 6 / / On-X Intrnl Valve Coronary Aortic Mechanical On X 25mm Onxane-25 - [id number] - [id number] Implanted:Qty: 1 on 10/17/2023 by Lorne Mcnulty MD at [facility] N/A: Heart On-X Intrnl 01/22/2028 ONXANE-25 / [id number] / Rl Biomet Inc Screw Bone Slf Drl Full Thread Locking 3.5x18mm Ti 100.035.18 - [id number] Implanted:Qty: 12 on 10/17/2023 by Lorne Mcnulty MD at [facility] N/A: Sternum Rl [employer] Inc 100.035.1 8 / / Explanted Type Area Chemical Waste Management Technician Device Identifier Shelf Expiration Date Model / Serial / Lot Bard Peripheral Vascular Bard .25x.25in [place] Thk1.65mm Square [place] Cardiovascular Ptfe [id number] - [id number] Explanted:Qty: 1 on 10/17/2023 by Lorne Mcnulty MD at [facility] N/A: Heart Bard Peripheral Vascular 05/18/2026 [id number] / / Procedures Procedure Name Priority Date/Time Associated Diagnosis Comments HEPATITIS C ANTIBODY Routine 07/29/2024 11:01 AM SURGICAL SERVICES MANAGER End stage renal disease (HCC) EGFR Routine 07/29/2024 11:01 AM SURGICAL SERVICES MANAGER End stage renal disease (HCC) HEMOGLOBIN A1C Routine 07/29/2024 11:01 AM SURGICAL SERVICES MANAGER End stage renal disease (HCC) LIPID PANEL Routine 07/29/2024 11:01 AM SURGICAL SERVICES MANAGER End stage renal disease (HCC) PSA SCREEN Routine 07/29/2024 11:01 AM SURGICAL SERVICES MANAGER End stage renal disease (HCC) TSH Routine 10/27/2023 2:30 AM SURGICAL SERVICES MANAGER from Last 3 Months or Most Recently Relevant to Health Maintenance Results * (ABNORMAL) eGFR (07/29/2024 11:01 AM SURGICAL SERVICES MANAGER) eGFR 7(L) >=60 mL/min/1. 73 m2 [...] reviewed 2021. Blood 07/29/2024 11:0 1 AM SURGICAL SERVICES MANAGER 07/29/2024 11:33 AM SURGICAL SERVICES MANAGER us Jossie King MD LAB BLOOD ORDERABL ES Final Result [facility] Department [place] [address] * PSA screen (07/29/2024 11:01 AM SURGICAL SERVICES MANAGER) PSA-Total 0.55 <=3.90 ng/mL Comment: Interpretive [...] revised 21. Blood 07/29/2024 11:0 1 AM SURGICAL SERVICES MANAGER 07/29/2024 11:33 AM SURGICAL SERVICES MANAGER Narrative [facility] - 07/29/2024 12:39 PM SURGICAL SERVICES MANAGER This lab is being obtained as part of a Kidney transplant evaluation, is time sensitive, and should only be drawn during the evaluation visit at [address] Lab[address] Jossie King MD LAB BLOOD ORDERABL ES Final Result Performing Organization Address [facility] de Phone Number [facility] Department [place] [address] * Hepatitis C antibody Blood (07/29/2024 11:01 AM SURGICAL SERVICES MANAGER) Pathologist [facility] Hep C Ab Nonreactive Nonreactive Comment:Antibodies to HCV no t detected. Does NOT exclude the possibility of recent exposure to HCV. Current interpretive data was last revised on 22 Blood 07/29/2024 11:0 1 AM SURGICAL SERVICES MANAGER 07/29/2024 11:32 AM SURGICAL SERVICES MANAGER Narrative [facility] - 07/29/2024 12:47 PM SURGICAL SERVICES MANAGER This lab is being obtained as part of a Kidney transplant evaluation, is time sensitive, and should only be drawn during the evaluation visit at [address] Lab[address] Jossie King MD LAB MICROBIOLOGY - GENERAL ORDERABLES Final Result Performing Organization Address [facility] de Phone Number [facility] Department [place] [address] * (ABNORMAL) Hemoglobin A1c (07/29/2024 11:01 AM SURGICAL SERVICES MANAGER) Pathologist [facility] Hgb A1C 9.0(H) 4.0 - 5.6 % Estimated Average Glucose 212 mg/dL [facility] Comment: The ADA recommends reporting an estimated Average Glucose (eAG) with all Hemoglobin A1c results using the equation derived from a study of 507 normal and diabetic adults. Minority populations were underrepresented and children were not included. (Diabetes Care 2020; 43(S1): S66-S76). The eAG is not equivalent to a fasting glucose. Blood 07/29/2024 11:0 1 AM SURGICAL SERVICES MANAGER 07/29/2024 11:34 AM SURGICAL SERVICES MANAGER Narrative [facility] - 07/29/2024 11:53 AM SURGICAL SERVICES MANAGER This lab is being obtained as part of a Kidney transplant evaluation, is time sensitive, and should only be drawn during the evaluation visit at [facility] Lab. us Jossie King MD LAB BLOOD ORDERABL ES Final Result [facility] Department [place] [address] * (ABNORMAL) Lipid panel (07/29/2024 11:01 AM SURGICAL SERVICES MANAGER) Cholesterol 114 30 - 199 mg/dL Comment: [...] on 2018. Triglycerides 66 <=149 mg/dL [facility] Comment: Interpretive Data Ages < or [...] 2018. HDL 29(L) >=40 mg/dL [facility] Comment: Interpretive Data Ages < [...] on 2018. LDL, calculated 71 <=129 mg/dL [facility] Comment: Interpretive Data Ages < [...] 2024. Non-HDL Cholesterol 85 mg/dL [facility] Comment: Interpretive Data Ages < [...] revised on 2018. Chol/HDL ratio 4 [facility] Blood 07/29/2024 11:0 1 AM SURGICAL SERVICES MANAGER 07/29/2024 11:33 AM SURGICAL SERVICES MANAGER Narrative [facility] - 07/29/2024 12:10 PM SURGICAL SERVICES MANAGER This lab is being obtained as part of a Kidney transplant evaluation, is time sensitive, and should only be drawn during the evaluation visit at [facility] Lab. us Jossie King MD LAB BLOOD ORDERABL ES Final Result [facility] Department [place] [address] * (ABNORMAL) TSH (10/27/2023 2:30 AM SURGICAL SERVICES MANAGER) [facility] Signature Thyroid Stimulating Hormone 13.20(H) 0.30 - 4.20 mcIUnit/mL Blood 10/27/2023 2:30 AM SURGICAL SERVICES MANAGER 10/27/2023 2:42 AM SURGICAL SERVICES MANAGER us Lorne Mcnulty MD LAB BLOOD ORDERABLES Final Result [facility] [address] Department [place] [address] from Last 3 Months or Most Recently Relevant to Health Maintenance Insurance [facility] MEDICARE ADVANTAGE [employer]PA [facility] MEDICARE ADVANTAGE TRANSPLANT [employer] MEDICARE RISK IDPA TRANSPLANT [employer] MEDICARE RISK IDPA Advance Directives For more information, please contact: [phone] * Full Code (Latest Code Status on File) Date Activated Date Inactivated Comments 10/13/2023 11:32 PM 11/03/2023 11:42 PM * Full Code Date Activated Date Inactivated Comments 06/05/2022 6:17 AM 06/29/2022 6:20 PM * Full Code Date Activated Date Inactivated Comments 06/05/2022 4:43 AM 06/05/2022 4:43 AM * Full Code Date Activated Date Inactivated Comments 06/04/2022 9:55 PM 06/05/2022 4:43 AM Care Teams Nylon Machine Operator Relationship Specialty Start Date End Date Aditya Castro MD [address] [place] [address] PCP - General 10/17/19 Alondra Lambert, RN [address] [address] Stores Clerk 03/06/24 Hamlet Ortega Jr., MD [address] [place] [address] Consulting Physician Cardiovascular Disease 05/10/24 Leandro Reyes MD [address] [facility] [address] [place] [address] Consulting Physician Nephrology 07/30/24
--- OUTSIDE RECORDS SUMMARY | 2024-12-11 15:04 | XMS_ITS | Encounter Summary ---
Author Organization [facility] Address [address] [address] Phone Care Team Providers Care Ground Crewman Mission Support Name Role Phone Unavailable Primary Care Provider Unavailabl e Reason for Visit * Reason Comments Med Refill Encounter Details Date Type Department Care Team (Late st Contact Info) Description 02/13/2019 Refill [facility] [address] [address] Leandro Reyes MD [address] [address] Social History Tobacco Use Types Packs/Day Years [...]
--- OUTSIDE RECORDS SUMMARY | 2024-12-11 15:04 | XMS_ITS | Clinical Summary ---
Author Organization [facility] [employer] Address [address] [place] [address] Care Team Providers Care Staining Machine Operator Name Role Phone Aditya Castro Primary Care Provider Unavailab le Source Comments [facility] [employer]non-owned Affiliates and Associated Physician Practices is amultiple site organization consisting of ambulatory clinics and hospital sitesin [place] and [place]. This disclosure is being madepursuant to the Care Everywhere program and may not contain all information available regarding this patient. Last updated 18.[facility] [employer] Allergies Active Allergy Reactions Criticality Noted Date Comments Allopurinol Other High Shuts my kidneys down per patient. Contrast-Iodinated Agents For Ct/Other Rash Medium 11/22/2018 Ticagrelor Rash High 11/22/2018 Medications * Be aware that medications may not be up to date on this document. Alwaysverify current medications with the patient. colchicine 0.6 MG tablet Take 0.6 mg [...] Take 1 tablet by mouth once daily 11/25/19 19 Active carvedilol (COREG) 25 MG tablet Take [...] MG tablet Take 40 mg by mouth 02/26/20 19 Active atorvastatin (LIPITOR) 40 MG tablet Take 40 mg by mouth at bedtime 02/29/20 19 Active atorvastatin (LIPITOR) 20 MG tablet Take 40 mg by mouth at bedtime 02/24/20 19 Active cyclobenzaprine (FLEXERIL) 10 MG tablet Take 10 mg by mouth every 12 hours as needed 01/26/20 19 Active vitamin D, ergocalciferol, (DRISDOL) 90256 units capsule Take 50,000 Units by mouth every 7 days 02/14/20 19 Active ferrous sulfate EC (FERROUS SULFATE) 324 (65 Fe) MG tablet Take 324 mg by mouth once daily 02/22/20 19 Active furosemide (LASIX) 40 MG tablet Take 80 mg by mouth 2 times daily 03/06/20 19 Active hydrALAZINE (APRESOLINE) 100 MG tablet Take 100 mg by mouth 3 times daily 02/17/20 19 Active raNITIdine (ZANTAC) 300 MG tablet Take 300 mg by mouth 2 times daily 02/29/20 19 Active ranolazine ER 12hr (RANEXA) 500 MG tablet Take 500 mg by mouth every 12 hours 02/21/20 19 Active traMADol (ULTRAM) 50 MG tablet Take 50 mg by mouth every 8 hours as needed 11/15/19 19 Active ezetimibe (ZETIA) 10 MG tablet Take 10 mg by mouth once daily Active ketoconazole (NIZORAL) 2 % shampoo Apply to affected area once daily 04/23/20 19 Active TRUE METRIX BLOOD GLUCOSE TEST test strip 04/17/20 19 Active GLUCAGON EMERGENCY injection 04/18/20 19 Active fluticasone propionate (FLONASE) 50 MCG/ACT nasal spray Howe 1 spray into each nostril once daily 04/24/20 19 Active epoetin (PROCRIT) 48018 UNIT/ML injection Inject subcutaneously every 14 days Active benzonatate (TESSALON) 200 MG capsule Take 1 capsule by mouth every 6 hours as needed 04/18/20 19 Active phentermine (IONAMINE) 30 MG capsule Take 30 mg by mouth every 24 hours Active insulin lispro (ADMELOG) 100 UNIT/ML vial Active selenium sulfide (SELSUN) 2.5 % lotionIndicatio ns:Other seborrheic dermatitis APPLY TO FACE, LATHER AND RINSE OFF IN SHOWER AFTER 3 TO 5 MINUTES DIRECTED 120 mL 3 07/20/20 20 Active Active Problems Problem Noted Date Diagnosed Date Pre-transplant evaluation for kidney transplant 03/24/2020 Overview (07/15/2020): Images from the original note were not included. Juvenal Garvin 1970 Referring President And Chief Commercial Officer: Leandro Reyes Dialysis Info: Type: PD Time: 160 days (11/05/2019) Blood Type: A Body mass index is 37.8 kg/m . ALERTS Waiter/Waitress Cocktail Lounge: Vashti Lizama NP Past Medical History: Diagnosis Date Anemia Arthritis Arthropathy osteo. back and knees see Dr. Norton CAD (coronary artery disease) Community acquired pneumonia 2017 [facility] hospitalized with double pneumonia Congestive heart failure Coronary artery disease Diabetes mellitus type 1 teens dx when he was 13. Insulin since he was dx. Insulin pump currently with dexacom. Vashti Lizama STUDENT ACCOUNTS COORDINATOR is mental health nurse practitioner. DM (diabetes mellitus) TYPE 1 DVT (deep venous thrombosis) 2017 [facility] ESRD on peritoneal dialysis Gout History of blood transfusion 2017 during admission for [place] HLD (hyperlipidemia) HTN (hypertension) Hypercholesteremia 5 years on med Hypertension 30's on medications. Kidney disease Myocardial infarction 2017 [facility] Stent x1 placed. Neuropathy feet Obstructive sleep [...] file Gets together: Not on file Attends zoroastrian service: Not on file Active member of [...] It is the impression of this social welfare administrator that Juvenal Garvin has several positive factors [...] advised of safety concerns regarding immunosuppressants. Plan: ornamental iron worker to provide supportive services as needed. Patient appears to be a reasonable candidate for transplant from a psychosocial perspective. -Post transplant arrangement forms are needed prior to being listed. Psychiatric Consult Recommended: No Transplant Clothespin Machine Operator: Radha Roper LCSW RD:05/14/2020 BMI= 40.0, [...] at Not on file Legal Sex Male 5:33 AM BATTERY MECH[employer] Gender Identity Not on file Sexual Orientation Not on file Last Filed Vital Signs Vital Sign Reading Time Taken Comments Blood Pressure 140/60 07/13/2020 1:30 PM BATTERY MECHANIC Pulse 65 07/13/2020 1:30 PM BATTERY MECHANIC Temperature 36.1 C (97 F) 07/13/2020 1:30 PM BATTERY MECH[employer]IC Respiratory Rate 20 07/13/2020 1:30 PM BATTERY MECHANIC Oxygen Saturation 95% 07/13/2020 1:30 PM BATTERY MECHANIC Inhaled Oxygen Concentration - - Weight 134.3 kg (296 lb) 07/13/2020 1:30 PM BATTERY MECHANIC Height 176.5 cm (5' 9.5 ) 07/13/2020 1:30 PM BATTERY MECHANIC Body Mass Index 43.08 07/13/2020 1:30 PM BATTERY MECHANIC Plan of Treatment Health Maintenance Due Date Last Done Comments COLOGUARD (AGES 45-75) - COLON CA SCREENING [address] COLONOGRAPHY - COLON CA SCREENING 1970 FIT - COLON CA SCREENING 1970 FLEX SIG - COLON CA SCREENING 1968 DTAP/TDAP/TD VACCINES (1 - Tdap) 1987 HEPATITIS B VACCINE (1 of 3 - 19+ 3-dose series) 1987 PNEUMOCOCCAL VACCINE 50+ (1 of 2 - PCV) 1987 ZOSTER VACCINE (1 of 2) 2018 SCREENING FOR DIABETES 05/14/2023 0, 05/14/2020, 04/26/2019, Additional history exists COVID-19 VACCINE [...] 10:18 AM CDT 05/14/2020 10:57 AM CDT us Glenny Martin MD LAB - HEMATOLOGY ORDERA BLES Final Result [facility] [address] [place] [address], [facility] [phone] * (ABNORMAL) COMPREHENSIVE METABOLIC PANEL (05/14/2020 10:18 AM [facility]) BUN 65(H) 7 - 26 mg/dL 05/14/2020 11:41 AM [facility] Creatinine 5.6(H) 0.6 - 1.2 mg/dL 05/14/2020 11:41 AM [facility] Sodium 142 136 - 145 mmol/L 05/14/2020 11:41 AM [facility] Potassium 3.7 3.5 - 4.5 mmol/L 05/14/2020 11:41 AM [facility] Chloride 101 98 - 107 mmol/L 05/14/2020 11:41 AM [facility] CO2 28 22 - 29 mmol/L 05/14/2020 11:41 AM [facility] Glucose 162(H) 70 - 115 mg/dL 05/14/2020 11:41 AM [facility] Calcium 9.0 8.4 - 10.2 mg/dL 05/14/2020 11:41 AM [facility] Protein Total 6.9 6.0 - 8.3 g/dL 05/14/2020 11:41 AM [facility] Albumin 3.7 3.4 - 5.0 g/dL 05/14/2020 11:41 AM [facility] Bilirubin Total 0.7 0.2 - 1.2 mg/dL 05/14/2020 11:41 AM [facility] Alkaline Phosphatase 140 40 - 150 Units/L 05/14/2020 11:41 AM [facility] ALT 43 0 - 55 Units/L 05/14/2020 11:41 AM [facility] AST 29 5 - 34 Units/L 05/14/2020 11:41 AM [facility] Anion Gap 17 8 - 18 05/14/2020 11:41 AM [facility] BUN/Creatinine Ratio 12 7 - 23 05/14/2020 11:41 AM [facility] Osmolality Calculated 316(H) 270 - 300 mOsm/kg 05/14/2020 11:41 AM CDT [facility] Albumin/Globulin Ratio 1.2 1.1 - 2.3 05/14/2020 11:41 AM T [facility] eGFR 11(L) >60 mL/min/1.7 3 m2 05/14/2020 11:41 AM CDT [facility] Blood BLOOD SPECIMEN / Unknown Lab Venipuncture / Unknown 05/14/2020 10:18 AM CDT 05/14/2020 10:55 AM CDT Glenny Martin MD LAB - CHEMISTRY ORDERAB LES Final Result [address] [address], [place] [phone] * HEPATITIS C ANTIBODY (05/14/2020 10:18 AM CDT) Hepatitis C Antibody Non-react bianca Non-reac tive 05/14/2020 11:49 AM CDT [facility] Comment:Hepatitis C Antibody screen indicates no [...] CDT Glenny Martin MD LAB - CHEMISTRY ORDERAB LES Final Result [address] [address], [place] [phone] from Last 3 Months or Most Recently Relevant to Health Maintenance Insurance MEDICARE MEDICAID - [place] AETNA MEDICARE ADV MEDICARE MEDICAID [facility] * Guarantor: JUVENAL GARVIN Account Type Relation to Patient Date of Phone Billing Address Personal/Family [address] [place] [address] AETNA MEDICARE ADV MED[place]ID [place] * Guarantor: JUVENAL GARVIN Account Type Relation to Patient Date of Phone Billing Address Personal/Family [address] [place] [address] [place] MEDICARE ADV MED[place]ID [place] * Guarantor: JUVENAL GARVIN Relation to Patient Date of Phone Billing Address Personal/Family [address] [place] [address] AETNA MEDICARE [facility] MEDICAID [place] Advance Directives * Full Code (Latest Code Status on File) Date Activated Date Inactivated Comments 11/22/2018 9:24 AM 11/23/2018 7:55 PM Care Teams Staining Machine Operator Relationship Specialty Start Date End Date Aditya Castro Update Information PCP - General 03/06/19
--- OUTSIDE RECORDS SUMMARY | 2024-12-11 15:04 | XMS_ITS | CONTINUITY OF CARE DOCUMENT ---
Author Name archana rindemian Address Unknown Organization [facility] Address [address] [place] [address] Phone [phone] Care Team Providers Care Elevator Service Technician Name Role Phone Shannon ARNOLD, Hamlet Unavailable [phone] STEPHANIE CORREA MD Unavailable [phone] STEPHANIE CORREA MD Unavailable PROBLEMS Condition Status Date Provider Notes CABG post active Annemarie Connelly RN Valve replacement active Annemarie Connelly RN long term care phlebotomist anticoagulant therapy active Annemarie Connelly RN Family [...] In-person encounter Office Visit Hamlet Ortega MD [facility] - In-person encounter Office Visit Hamlet Ortega MD [facility] Atrial Fibrillation - In-person encounter Office Visit Hamlet Ortega MD [facility] - In-person encounter Office Visit Hamlet Ortega MD [facility] C A B G:Valve SurgeryCKD stage ESRD on dialysis GFR <15 - In-person encounter Office Visit Hamlet Ortega MD [facility] - In-person encounter Office Visit Hamlet Ortega MD [facility] - In-person encounter Office Visit Hamlet Ortega MD [facility] OverweightAortic insufficiency - In-person encounter Office Visit Hamlet Ortega MD [facility] - In-person encounter Office Visit Hamlet Ortega MD [facility] - In-person encounter Office Visit Hamlet Ortega MD [facility] - In-person encounter Office Visit Hamlet Ortega MD [facility] - In-person encounter Office Visit Hamlet Ortega MD [facility] - In-person encounter Office Visit Hamlet Ortega MD [facility] - In-person encounter Office Visit Hamlet Ortega MD [facility] - In-person encounter Office Visit Hamlet Ortega MD [facility] - In-person encounter Office Visit Hamlet Ortega MD [facility] - In-person encounter Office Visit Hamlet Ortega MD [facility] - In-person encounter Office Visit Hamlet Ortega MD [facility] - In-person encounter Office Visit Hamlet Oretga MD [facility] - In-person encounter Office Visit Hamlet Ortega MD [facility] Dizziness - In-person encounter Office Visit Hamlet Ortega MD [facility] - In-person encounter Office Visit Hamlet Ortega MD [facility] - In-person encounter Office Visit Hamlet Ortega MD [facility] - In-person encounter Office Visit Hamlet Ortega MD [facility] Family History of Hypertension:Coronary artery diseaseShortness [...] MD blood pressure, diastolic 79 mm[Hg] [facility] blood pressure, systolic 169 mm[Hg] Molly carrillo [facility] oxygen saturation, oximetry 100 % [facility] pulse rate 94 /min [facility] weight E&M 281 [lb_av] [facility] height E&M 70 [in_i] Lexus [facility] blood pressure, diastolic 101 mm[Hg] [place] [facility] blood pressure, systolic 157 mm[Hg] Vanna garay Major oxygen saturation, oximetry 96 % [facility] pulse rate 122 /min [facility] blood pressure, cuff size regular Chapo dena Major Body Mass Index (Ratio) 38.62 kg/m2 Zoë on Major weight in kilograms E&M 122.11 kg Zoë on Major weight E&M 269.2 [lb_av] [facility] height E&M 70 [in_i] Chapoaromegan Major [...] Avni blood pressure, diastolic 60 mm[Hg] Chad mdadie Holly blood pressure, systolic 154 mm[Hg] Aida [...] Nisa Burton blood pressure, systolic 154 mm[Hg] Gairma Burton oxygen saturation, oximetry 98 % Hai [...] ratio (INR) 4.0 Robin Villarreal RN Normal coagulation managed by [...] managed by Arabella Taylor RN Arabellajoya Taylor coagulation managed by Robin Villarreal RN [...] RN international normalized ratio (INR) 1.8 Robin Arevalos RN Normal coagulation managed by Robin Villarreal [...] [employer] 3.5-5.2 sodium, serum 140 mmol/L [employer] [phone]/03/ 21 urea nitrogen/creatini ne ratio, serum 17 [...] Not Estab. platelet count 261 X10E3/UL [employer] [phone]/03/ 21 red blood cell distribution width 13.9 [...] USE Medication Status Instructions Dates Provider Indications [facility] metoprolol succinate 50 mg tablet extended release [...] 1 tablet by mouth once a day Except on Mon take / tab Robin Villarreal RN long term care phlebotomist anticoagulant therapy warfarin 3 mg tablet completed Take 1 tablet by mouth every evening EXCEPT on Mon Wed and Fri , take 1 and one half tablet. (4.5 mg) - Annemarie Connelly RN intermediate anticoagulant therapy warfarin 2 mg tablet completed 1 tab on 01/19, 01/20, 01/21, 01/22 - Robin Villarreal RN levothyroxine 25 mcg tablet active Take 1 tablet by mouth every morning Annemarie Connelly RN warfarin 3 mg tablet completed Take 1 tablet by mouth every evening EXCEPT on Mon and take one half tablet. (1.5 mg) - Moustapha Koehler RN long term care phlebotomist anticoagulant therapy warfarin 2 mg tablet completed [...] by mouth once a day - Selina Tjhelga losartan 100 mg tablet completed Take 1 [...] 1 tablet by mouth once a day Kraley Holly docusate sodium 100 mg capsule active [...] active 1 tablet once a day Lolisstlian Ab calcitriol 0.25 mcg capsule active 1 [...] meal time followed by sliding scale - Harriett Berger VIAGRA 50 MG ORAL TABLET completed [...] tablet by mouth once a day - aSniya Connelly ISOSORBIDE MONONITRATE 60MG ER TABS completed [...] Harriett Ab smoking status Never smoker Harriett Coronadou e social history E&M Marital Statu s: C hildren: 3 O ccupation: Disabled Smoking History: P atient has never smoked. Hamlet Ortega MD social history reviewed E&M revi ewed - no changes required Hamlet Ortega MD alcohol use no Karley uHgh l passive cigarette sm kat exposure no [...] Payer name Policy type / Coverage type [facility] ID [facility] COM[facility]TE [facility]ARE [id number] (PPO C-SNP) Commercial insurance company [id number] [facility] Medicaid 3 [id number] ADVANCE DIRECTIVES Name Date DISCUSSED - NO DECISION MADE TREATMENT PLAN Date Name Performer [id number],S, Hamlet Ramada n [id number],S, Hamlet Ramada n [id number],S, Hamlet Ramada n [id number],S, Hamlet Ramada n [id number],S, Hamlet Ramada n [id number],S, Hamlet Ramada n [id number],S, Hamlet Ramada n [id number],S, Hamlet Ramada n [id number],S, Hamlet Ramada n [id number],S, Hamlet Ramada n [id number],S, Hamlet Ramada n [id number],S, Hamlet Ramada n [id number],S, Hamlet Ramada n [id number],C,T he patient is using BiPAP on a regular basis. The patient has been benefiting from therapy and should continue use. Hamlettim Ortega MD [id number],S, Hamlet Ramada n [id number],S, Hamlet Ramada n [id number],S, Hamlet Ramada n [id number],S, Hamlet Ramada n [id number],S, Hamlet Ramada n [id number],S, Hamlet Ramada n [id number],S, Hamlet Ramada n [id number],S, Hamlet Loredoada n [id number],S, Hamlet Loredoada n [id number],S, Hamlet Facundoada n [id number],S, Hamlet Ramada n [id number],S, Hamlet Loredoada n [id number],S, Hamlet Loredodewayne n [id number],C,T he patient is using CPAP on a regular basis. The patient has been benefiting from therapy and should continue use. Hamlet Ortega MD [id number],B, Hamlet Merle guzman MD [id number],S, Hamlet Loredodewayne guzman MD [id number],B, Hamlettim Loredodewayne guzman MD [id number],B, Hamlet Loredodewayne guzman MD [id number],S, Hamlet Loredodewayne guzman MD [id number],S, Hamlet Loredodewayne guzman MD [id number],B, Hamlet Loredodewayne guzman MD [id number],S, Hamlettim Loredodewayne n [id number],S,L ast stress 01/08 had some abnormalities that fit with known coronary anatomy. No significant symptoms at this point. Will follow closely, no cath at this point. Patient is encouraged to increase activity as tolerated, particularly exercise in form of walking on treadmill. Hamlet Ortega MD [id number],B, Hamlet guzman MD [id number],S, Hamlet guzman MD [id number],S, Hamlet guzman MD [id number],C,T he patient is using CPAP on a regular basis. The patient has been benefiting from therapy and should continue use. Hamlet Ortega MD [id number],S, Hamlet guzman MD [id number],S,L ast stress 01/08 had some abnormalities that [...] to see if EF has improved. [facility]. Hamlet Ortega [...]
--- OUTSIDE RECORDS SUMMARY | 2024-12-11 15:04 | XMS_ITS | Data Portability ---
Author Organization [facility] IP Address [address] [place] [address] Care Team Providers Care Lead Python Developer Name Role Phone STEPHANIE CORREA Primary Care [...] By Organization Details Last Modified Time 07/25/2018 [id number] use OTC lubrican t eyedrops 3 times a day in both eyes. [email or web address] Not available 07/25/2018 17:27:28 Keep follow-up appointments in 2 months as scheduled. [email or web address] Not available 07/25/2018 17:27:45 12/05/2018 [id number] diabetic retinopathy: care instructions msafi Not available 12/05/2018 20:02:55 type 2 diabetes: [facility] 12/05/2018 20:02:55 Reason for Referral None Reported. Problems Name Problem SNOMED Code Status Onset Date Resolution Date Notes Provider Name and Address Organization Details Recorded Time Diabetes mellitus 62079809 Active 2017 Wandy agosto [facility] 8 12:14:02 Hypercholestero lemia 78514301 Active 2017 Wandy agosto PA [facility] 8 12:14:14 Problem Notes None recorded. Procedures Surgical History Date Name Laterality Status Provider Name and Address Organization Details Recorded Time 9 placement of stent in coronary artery completed Wandy Rapp PA [facility] 12/05/2018 10:00:35 7 placement of stent [...] Name and Address Organization Details Recorded Time 385777 Brilinta medicatio n Not available Not available Not available 07/04/2018 22208 36 RxNorm Not Available Not Available Not Available 478295 Iodinated contrast media (substanc e) medicatio n Not available Not available Not available 07/04/2018 23815 2004 SNOMED Not Available Not Available Not [...] 8 180.34 cm 64 /min 37 kg/m2 023170. 98 g 161 mm[Hg] 66 mm[Hg] Wandy Rapp [facility] 8 12:12:14 Date Recorded Body height Heart rate Body mass index (BMI) Body weight Systolic blood pressure Diastolic blood pressure Provider Name and Address Organization Details Last Updated DateTime 8 180.34 cm 63 /min 36.9 kg/m2 397393. 46 g 148 mm[Hg] 67 mm[Hg] Bernice Connelly RN [facility] 8 15:12:11 Date Recorded Body height Body mass index (BMI) Body weight Heart rate Systolic blood pressure Diastolic blood pressure Provider Name and Address Organization Details Last Updated DateTime 180.34 cm 37.8 kg/m2 488789. 53 g 62 /min 133 mm[Hg] 64 mm[Hg] Wandy Rapp [facility] 9 09:58:22 Social History Question Answer Notes LastModified by Organizat ion Details LastModified Time Tobacco Smoking Status Never Smoker Wnady Rapp [facility] 12/05/2018 09:58:54 What Was The Date Of Your Most Recent Tobacco Screening? 12/05/2018 Information not available 03/14/2019 Has Tobacco Cessation Counseling Been Provided? 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 3933320681 38184 E11.3299 Tear film insufficiency 50641920 H04.203 [id number] Evy Olson MD [facility] [address] [place] [address] 12/05/2018 09:46:14 12/06/2018 13:28:35 Nonproliferative retinopathy due to diabetes mellitus 596275194 E11.3293 After-juan ract with vision obscured following extraction of cataract 545966298 H26.492 Health Concerns Section Related Observation LastModified by Organization Detai ls LastModified Time None Recorded Concern Status LastModified by Organization Details LastModified Time None Recorded Advance Directives Directive None Recorded Payers Encounter Date Sequence Insurance Name Policy Number Policy Ge Covered Member ID Ge Member ID Guarantor Name 07/04/2018 1 [facility] (MEDICAID HMO) [id number] Juvenal Newcombe [id number] Juvenal Newcombe 07/25/2018 1 [facility] (MEDICAID HMO) [id number] Juvenal Newcombe [id number] Juvenal Newcombe 12/05/2018 1 [facility] (MEDICAID HMO) [id number] Juvenal Newcombe [id number] Juvenal Newcombe Notes Date Note Type Note Provider Name and Address Organization Details Recorded Time 07/04/2018 text/html C/O bleeding in left eye seen by market reporter H/O cat. Sx OU. 2016 and 2017. No prolbem in post op exam Evy Olson MD [address], [place], [address], [facility] 07/05/2018 10:07:17 07/25/2018 text/html complaint of red spot in the right eye since 3 days, no pain no discharge no previous injury.History of diabetic retinopathy in both eyes Evy Olson MD [address], [place], [address], [facility] 07/25/2018 17:28:04 12/05/2018 text/html F/U DRP. c/o decreased vision in left eye Evy Olson MD [address] [place], [address], [facility] 12/05/2018 20:02:58
--- OUTSIDE RECORDS SUMMARY | 2024-12-11 15:04 | XMS_ITS | Continuity of Care Document ---
Author Organization [facility] Address [address] [place] [address] [place] [address] Phone Care Team Providers Care Research Scientist Name Role Phone Carlos Garcia Unavailable Unavailable Advance Directives Directive Yes / No Effective Date File Name No Information Encounters Encounter Description Practice Location Reason(s) For Visit Diagnoses Date Provider Providers Copied on Encounter [facility], [id number] [place] [address] [address], [place], [place], [id number], [place] tel:[phone] [facility] No Information Radha Gonzalez. [address] [place], [place], [facility], [place]. tel:[phone] Referring Provider: Yannick Remy, [facility], [place], [place], [facility]. tel:[phone] Family History Family Member Type Diagnosis Age At Onset No Information Payers Payer name Insurance type Covered democrat ID Authoriza tion(s) Medicaid [facility] [id number] Social History Type Description Quantity Date Captured [...]
--- OUTSIDE RECORDS SUMMARY | 2024-12-11 15:04 | XMS_ITS | Clinical Summary ---
Author Organization [facility] Address [address], [place] [address] Phone Care Team Providers Care Occupational Therapist Home Based Name Role Phone Unavailable Primary Care Provider Unavailabl e Allergies Active Allergy Reactions Criticality Noted Date Comments Ticagrelor 12/26/2018 Medications cloNIDine (CATAPRES) 0.1 MG tablet 1 tab 2 times daily 0 8 Active nitroglycerin (NITROSTAT) 0.4 MG SL tablet PRN as directed 0 8 Active clopidogrel (PLAVIX) 75 MG tablet 1 tab daily 0 8 Active Cholecalciferol (VITAMIN D3) 67723 units capsule 1 tab by mouth once weekly 0 9 Active isosorbide mononitrate (IMDUR) 30 MG 24 hr tablet 1 tab by mouth daily with 60mg 0 9 Active raNITIdine (ZANTAC) 300 MG capsule 1 tab 2 times daily 0 8 Active Additional Information Patient taking differently: 300 mgOralDaily, Reported on 10/29/2019 atorvastatin (LIPITOR) 40 MG tablet 1 tab by mouth daily 0 8 Active hydrALAZINE (APRESOLINE) 100 MG tablet 1 tab 3 times daily 0 8 Active terazosin (HYTRIN) 2 MG capsule 1 tab once daily 0 8 Active Febuxostat (ULORIC) 40 MG tablet one tab daily 0 7 Active carvedilol (COREG) 25 MG tablet 1 tab 2 times daily 0 8 Active ranolazine (RANEXA) 500 MG 12 hr tablet 1 tab by mouth every 12 hours 0 8 Active aspirin 81 MG chewable tablet Chew 81 mg. 9 Active cetirizine (ZyrTEC) 10 MG tablet Take 10 mg by mouth. Active colchicine 0.6 MG tablet Take 0.6 mg by mouth. Active ezetimibe (ZETIA) 10 MG tablet Take 10 mg by mouth 1 (one) time each day Active ADMELOG 100 UNIT/ML injection 0 Active metoprolol tartrate (LOPRESSOR) 100 MG tablet 0 Active selenium sulfide (SELSUN) 2.5 % shampoo 0 Active atorvastatin (LIPITOR) 80 MG tablet 0 Active furosemide (LASIX) 40 MG tablet Take 2 tablets (80 mg total) by mouth 2 (two) times a day 120 tablet 5 0 Active calcium acetate (PHOSLO) 667 MG capsule TAKE 1 CAPSULE BY MOUTH FOUR TIMES DAILY WITH MEALS AND SNACKS 120 capsule 11 1 Active furosemide (LASIX) 80 MG tablet TAKE 1 TABLET(80 MG) BY MOUTH TWICE DAILY 60 tablet 11 1 Active calcitriol (ROCALTROL) 0.25 MCG capsule TAKE 1 CAPSULE BY MOUTH EVERY DAY 30 capsule 11 1 Active calcium acetate (PHOSLO) 667 MG capsule TAKE ONE CAPSULE BY MOUTH FOUR TIMES DAILY WITH MEALS AND SNACKS 120 capsule 11 2 Active calcium acetate (PHOSLO) 667 MG capsule TAKE ONE CAPSULE BY MOUTH FOUR TIMES DAILY WITH MEALS AND SNACKS 120 capsule 11 2 Active Active Problems Problem Noted Date Diagnosed Date Cramp 03/25/2020 Cramp in lower limb 03/25/2020 Obstructive sleep apnea 06/27/2019 Umbilical hernia 03/27/2019 Type 2 diabetes mellitus with diabetic nephropat hy 09/27/2018 Stage 5 chronic kidney disease 04/04/2018 Secondary hyperparathyroidism 12/25/2017 Hypertensive end stage renal disease 05/30/2016 Anemia in chronic kidney disease 05/30/2016 Immunizations Immunization Administration Dates Next Due Influenza TIV (IM) [...] on file Legal Sex Male 9:05 AM [facility] Gender Identity Not on file Sexual Orientation [...] Due Date Last Done Comments Influenza Vaccine (Season Ended) 2025 06/04/20, 07/11/2016 Insurance [employer]
--- OUTSIDE RECORDS SUMMARY | 2024-12-11 15:04 | XMS_ITS | Encounter Summary ---
Author Organization [facility] Address [address] [address] Phone Care Team Providers Care Firer Locomotive Crane Name Role Phone Unavailable Primary Care Provider Unavailabl e Reason for Visit * Reason Comments Med Refill Encounter Details Date Type Department Care Team (Late st Contact Info) Description 02/24/2020 Refill [facility] [address] [address] Leandro Reyes MD [address] [address] Social History Tobacco Use Types Packs/Day Years [...]
--- OUTSIDE RECORDS SUMMARY | 2024-12-11 15:04 | XMS_ITS | Encounter Summary ---
Author Organization [facility] Address [address], [place] [address] Phone Care Team Providers Care Wood Ski Maker Name Role Phone Unavailable Primary Care Provider Unavailabl e Reason for Visit * Reason Comments Med Refill Encounter Details Date Type Department Care Team (Late st Contact Info) Description 07/04/2019 Refill [facility] [address] [address] Leandro Reyes MD [address] [address] Social History Tobacco Use Types Packs/Day Years [...]
--- OUTSIDE RECORDS SUMMARY | 2024-12-11 15:04 | XMS_ITS | Encounter Summary ---
Author Organization [facility] Address [address] [place] [address] Care Team Providers Care Government Operations Consultant Name Role Phone Aditya Castro MD Primary Care Provider [phone] Encounter Details Date Type Department Care Team (Late st Contact Info) Description 04/15/2019 Telephone [facility] Oncology and H[facility]ology - [place] [address] [facility] [address] [place] [address] Fernando Schmid MD [address] [facility] [address] [place] [address] Social History Tobacco Use Types [...] on filedocumented in this encounter Care Teams Government Operations Consultant Relationship Specialty Start Date End Date Aditya Castro MD PCP - General Student in an Organized Health Care Education/Training Program 09/11/18 documented as of this encounter
--- OUTSIDE RECORDS SUMMARY | 2024-12-11 15:05 | XMS_ITS | Encounter Summary ---
Author Organization [facility] Address [address] [place] [address] Care Team Providers Care School Based Therapist Name Role Phone Aditya Castro Primary Care Provider Unavailab le Reason for Visit * Reason Onset Date Comments Med Question 06/25/2019 Encounter Details Date Type Department Care Team (Late st Contact Info) Description 06/25/2019 Telephone [facility] [address] [place] [address] Finn Kramer MD [address] [place] [address] Med Question Social History Tobacco Use Types Packs/Day Years Used Date Smoking Tobacco: Never Smokeless Tobacco: Never Alcohol Use Standard Drinks/Week Comments No 0 (1 standard drink = 0.6 oz pur e alcohol) Sex and Gender Information Value Date Recorded Sex Assigned at Not on file Legal Sex Male 5:33 AM [employer] Gender Identity Not on file Sexual Orientation Not on file documented as of this encounter Miscellaneous Notes * Telephone Encounter - Anali Connelly - 06/25/2019 1:41 PM CST Called and spoke with pt he is asking that we call [facility] at [phone] and talk to them about the compression stockings. I called and spoke with Kashif at [facility] and gave clarification the the mmHg I let them know that they should Be the 20-30mmHg . He understood and will get them ready for pt. Anali Connelly FLEECE GRADER * Telephone Encounter - Theodore Huerta - 06/25/2019 10:40 AM CST Pt called saying patient pharmacy just needs clarification of a number on the prescription for compression socks. Please Advise. FLEECE GRADER documented in this encounter Plan of Treatment Not on file documented as of this encounter Visit Diagnoses Not on filedocumented in this encounter Care Teams School Based Therapist Relationship Specialty Start Date End Date Aditya Castro Update Information PCP - General 03/06/19 documented as of this encounter
== END 2024-12-11 13:23 | disposition home or self-care (01) ==
LOC: ANHPFT 13:23
PROVIDERS: PCP Family Medicine; Visit Provider Nurse Practitioner
DX: R06.09 Other forms of dyspnea (principal)
CPT/HCPCS: 94060; 94726; 94729

== ENCOUNTER 2025-01-11 11:08 | Outpatient (CLI) | payer MEDICARE, MEDICAID, SELFPAY ==
--- NOTE | ~2025-01-11 | US_ITS ---
EXAM: ABDOMEN ULTRASOUND HISTORY: RUQ Pain COMPARISON: Reference is made to a CT examination of the abdomen and pelvis dated 11/23/2024 FINDINGS: LIVER: The liver is increased in echogenicity and size measuring 21 cm in longitudinal dimension. The portal vein is patent, demonstrating phasic hepatopedal flow. The contour of the liver surface is smooth. GALLBLADDER: Shadowing stones are identified within the neck of the gallbladder which demonstrate thi ckened medina, without pericholecystic fluid. BILE DUCTS: Common bile duct measures 2.5mm. PANCREAS: Limited evaluation of the pancreas secondary to overlying bowel gas IMPRESSION: Cholelithiasis, with gallbladder wall thickening which may be seen in acute cholecystitis which clini nikos correlation is needed. The common bile duct is of normal caliber. Reviewed, dictated and finalized at location A. IMPRESSION: Cholelithiasis, with gallbladder wall thickening which may be seen in acute cho lecystitis which clinical correlation is needed. The common bile duct is of normal caliber.
== END 2025-01-11 11:09 | disposition home or self-care (01) ==
LOC: MICIMG 12:01
PROVIDERS: PCP Family Medicine; Visit Provider Internal Medicine Gastroenterology
DX: R11.2 Nausea with vomiting, unspecified (principal); R10.11 Right upper quadrant pain; R19.4 Change in bowel habit; K80.20 Calculus of gallbladder without cholecystitis without obstruction
CPT/HCPCS: 76705

== ENCOUNTER 2025-03-06 14:37 | Emergency (ER) | payer MEDICARE, MEDICAID, SELFPAY ==
--- NOTE | ~2025-03-06 | CT_ITS ---
EXAMINATION: CT abdomen pelvis wo con DATE: 03/06/2025 17:42 INDICATION: Gross hematuria TECHNIQUE: Computed tomography (CT) of the abdomen and pelvis was performed without intravenous contr ast. Automated exposure control and iterative reconstruction technique were employed. The dose-length product was 909.73 mGy-cm. COMPARISON: 11/23/2024. FINDINGS: Lower thorax: Aortic valve replacement. Heavy coronary artery calcification with possible stenting. P ersistent but slightly decreased left basilar consolidation and simple left pleural fluid collection. Liver: Normal. Biliary/Gallbladder: Cholelithiasis. No inflammatory changes. No bile duct dilation. Pancreas: Pancreatic atrophy. Spleen: Normal. Adrenals:No mass. Kidneys: No suspicious mass, obstructing stone, or hydronephrosis. Bilateral renal atrophy. GI tract: No small or large bowel dilation. Appendix not visualized Mesentery/Peritoneum: No mass or free air. Moderate volume simple ascites. Retroperitoneum: No mass. Atherosclerotic calcifications of intra-abdominal arterial vessels. Pelvis: Nearly empty urinary bladder with wall thickening and mild inflammatory change. Soft Tissues: Moderate sized fat and fluid containing umbilical hernia with soft tissue thickening an d stranding around the hernia and across the inferior aspect of the anus. Mild diffuse body wall diaz a. Left lower quadrant peritoneal dialysis catheter terminating in the left lower quadrant with a sma ll amount of fluid along the catheter tract. Bones: No acute osseous finding. IMPRESSION: Improving segmental left basilar atelectasis/consolidation and pleural effusion. Cholelithiasis without evidence of cholecystitis. Moderate volume ascites. Fat and fluid containing umbilical hernia with considerable surrounding inflammation/edema, correlate for signs of infection or panniculitis. Findings suggestive of cystitis, correlate with urinalysis. Reviewed, dictated and finalized at location K. IMPRESSION: Improving segmental left basilar atelectasis/consolidation and pleural effusion . Cholelithiasis without evidence of cholecystitis. Moderate volume ascites. Fat and fluid containing umbilical hernia with considerable surrounding inflamm ation/edema, correlate for signs of infection or panniculitis. Findings suggestive of cystitis, correlate with urinalysis.
[2025-03-06 14:51] VITALS: BP 117/74; PULSE 103; RESP 18; TEMP 36.4; O2SAT 100
[2025-03-06 15:21] LABS: Need Manual Microscopic Reviewed; Non Pathogenic Casts 0-2
[2025-03-06 15:26] LABS: Add Urine Microscopic? YES; Appearance Urine Turbid (Clear); Glucose Urine UA 2+ mg/dL (Negative); Leukocyte Esterase Ur 2+ LEU/UL (Negative); Nitrate Urine Negative (Negative); Specific Grav Ur 1.041 (1.001-1.035)
[2025-03-06 15:54] VITALS: PULSE 106; RESP 18; O2SAT 93
[2025-03-06 15:55] VITALS: BP 130/74; PULSE 101; PULSE 90; RESP 16; RESP 20; O2SAT 95; O2SAT 97
[2025-03-06 16:00] VITALS: PULSE 100; RESP 19
--- NOTE | 2025-03-06 17:17 | ED_ITS ---
HPI - Male Genitourinary General Chief complaint: Urogenital-Male Stated complaint: hematuria x 1 week Time Seen by Provider: 03/06/25 16:52 Source: patient Mode of arrival: ambulatory History of Present Illness HPI Narrative: This is a very pleasant 54-year-old male patient with past medical history significant for chronic kidney disease stage 4 on PD, aortic valve regurgitation status post replacement on warfarin, CABG, type 2 diabetes mornings multiple pain meds kidney stones comes to emergency room complaints of having 1-2 weeks and hematuria. Patient has a does have some wound pain he is having at the end past 2 weeks he has had increasing amounts of blood in the urine. No fevers, no abdominal pain. He reports he sustained on the past week as well, hitting his left flank into a piece of furniture and due to his combative and has extensive bruising to the left flank and left side. He denies any painful inspiration, cough, hemoptysis, nausea/vomiting. Related Data Home Medications ?Medication ?Instructions ?Recorded ?Confirmed ?Last Taken ?Type calcitriol 0.25 mcg capsule 0.25 mcg PO QAM 06/04/19 11/22/24 11/22/24 History ergocalciferol (vitamin D2) 1,250 50,000 unit PO WEEKLY 06/04/19 11/22/24 11/18/24 History mcg (50,000 unit) capsule (Vitamin D2) nitroglycerin 0.4 mg sublingual 0.4 mg sublingual Q5-15M PRN Chest 06/04/19 11/22/24 05/19/23 16:30 History tablet Pain ezetimibe 10 mg tablet (Zetia) 10 mg PO DAILY 09/09/19 11/22/24 11/22/24 History cetirizine 10 mg tablet (All Day 10 mg PO DAILY 12/26/19 11/22/24 11/22/24 History Allergy (cetirizine)) atorvastatin 80 mg tablet 80 mg PO DAILY 11/26/20 11/22/24 11/22/24 History potassium chloride 20 mEq 20 meq PO DAILY Cramps 05/20/23 11/22/24 11/22/24 History tablet,extended release febuxostat 40 mg tablet 40 mg PO QPM 07/25/23 11/22/24 11/21/24 12:00 History linaclotide 72 mcg capsule 72 mcg PO DAILY PRN Diarrhea 07/25/23 11/22/24 Unknown History (Linzess) icosapent ethyl 1 gram capsule 1 g PO QID 02/16/24 11/22/24 11/22/24 History (Vascepa) torsemide 100 mg tablet 100 mg PO DAILY 02/16/24 11/22/24 11/22/24 History omeprazole 20 mg capsule,delayed 20 mg PO DAILY 06/06/24 11/22/24 11/22/24 History release amlodipine 10 mg tablet 10 mg PO HS 07/30/24 11/22/24 11/21/24 History calcium acetate(phosphat bind) 667 667 mg PO QID 07/30/24 11/22/24 11/22/24 History mg capsule glucagon 1 mg/0.2 mL subcutaneous See Rx Instructions .Route 07/30/24 11/22/24 Unknown History auto-injector (Gvoke HypoPen .COMPLEX PRN Hypoglycemia 2-Pack) famotidine 40 mg tablet 40 mg PO HS 08/17/24 11/22/24 11/21/24 History lidocaine 5 % topical patch 1 patch transdermal Q24H 08/17/24 11/22/24 Unknown History aspirin 81 mg capsule 81 mg PO DAILY 08/31/24 11/22/24 11/22/24 History colchicine 0.6 mg capsule 0.6 mg PO 3XW 08/31/24 11/22/24 11/22/24 History gentamicin 0.1 % topical cream 1 applic topical HS 08/31/24 11/22/24 11/22/24 History tamsulosin 0.4 mg capsule 0.4 mg PO BID 08/31/24 11/22/24 11/22/24 09:00 History insulin aspart U-100 100 unit/mL 15 unit subcut TIDWMEAL 09/23/24 11/22/24 11/22/24 History (3 mL) subcutaneous pen (Novolog FlexPen U-100 Insulin aspart) metoprolol tartrate 50 mg tablet 50 mg PO Q12H 09/23/24 11/22/24 11/22/24 09:00 History insulin NPH isoph U-100 human 100 40 unit subcut DAILY 11/22/24 11/22/24 11/21/24 History unit/mL (3 mL) subcutaneous pen (Humulin N NPH U-100 Insulin KwikPen) warfarin 5 mg tablet 3 mg PO DAILY 11/22/24 11/22/24 11/22/24 09:00 History Allergies Allergy/AdvReac Type Severity Reaction Status Date / Time allopurinol Allergy Severe Other Verified 11/22/24 17:56 iodine Allergy Severe Rash Verified 11/22/24 17:56 iohexol (From CONTRAST - CT, Allergy Severe Difficulty Verified 11/22/24 17:56 XRAY) Breathing ticagrelor Allergy Intermediate Rash Verified 11/22/24 17:56 Review of Systems 2 Review of Systems: All systems reviewed & are unremarkable except as noted in HPI and below PMFSH Past Medical History Medical History Chronic back pain Hematuria Right hand dominant Insulin dependent diabetes mellitus Chronic anticoagulation Paroxysmal atrial fibrillation Renal osteodystrophy Seizure X1 with etiology unknown End-stage renal disease on peritoneal dialysis Essential hypertension Gout Deep venous thrombosis Chronic right popliteal DVT. Coronary artery disease History of several stents including complex procedure at [facility]/ stenting of a heavily calcified CX on OM using shockwave treatment. Gastroesophageal reflux disease Congestive heart failure Echocardiogram May 2017 EF of 50% with hypokinetic apical, inferior and basal inferior lateral segment, mild enlargement of left atrium. Anemia in chronic kidney disease Type 1 diabetes mellitus Onset around age 13. Diabetic retinopathy Diabetic peripheral neuropathy Obstructive sleep apnea With inconsistent CPAP use. Secondary hyperparathyroidism of renal origin Anxiety Arthritis Hyperlipidemia Surgical History Surgical History S/P triple vessel bypass Sep 2023; [facility] History of coronary angioplasty with insertion of stent Drug-eluting stents for high-grade OM 99% occlusion 05/2022. History of hernia repair Peritoneal dialysis catheter in place History of cataract extraction With lens implant History of open reduction and internal fixation (ORIF) procedure (1982) Left lower extremity fracture. And the right hip pinning when he was in the 8th grade History of arthroscopy of left knee History of anterior cruciate ligament surgery (2000) Left knee History of bilateral carpal tunnel release Right 05/03/2018. Left 06/02/2018. History of appendectomy (2006) History of cardiac catheterization 01/21/[address] [facility], Dr. Hoover done: Little change from prior catheterization. Patent stents in the RCA and PDA. Previously jailed posterolateral is occluded and development of a 50% stenosis of a branch of om 1. Normal LV function. :August 2019 demonstrated patent stents with 40% stenosis of 1 vessel with no stents or angioplasty performed per patient report. :November 2018 at [facility] - stent x3. :March 2017 demonstrating mild diffuse coronary disease 80% lesion small sub branch of obtuse marginal 1 and 90% stenosis distal RCA into the origin of the PDA with PTCA and stent to the RPDA/distal RCA performed by Dr. Petit. Family History Family History Father , in his late 60s Acute myocardial infarction Premature coronary artery disease; <65yo CHF (congestive heart failure) Dementia Hypertension S/P triple vessel bypass 1980s Mother Lung cancer Hypertension Daughter Celiac disease Social History Social History Social History: Surrogate medical decision maker: Hodan Daigle (daughter) or Lorne Daigle (brother). Code status: Full code. Smoking status: Never smoker Second hand tobacco smoke exposure: No Alcohol intake: never Substance use: never Substance use type: does not use Do You Feel Safe in your Home?: Yes Lack of Transportation: No Lack of Food: Never True Current Housing: I Have Housing Concerned About Future Housing: No Difficulty Paying Gas/Electric Bills: No Difficulty Paying for Meds: No Currently Unemployed: No Education: High School Diploma/GED Difficulty w/ Childcare or Family Care: No Living arrangements: alone Additional living arrangements comments: He is single and has 3 children. 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 Spiritual care concerns: No Agree to blood products: Yes Exam 2 Const: General: ill appearing (Chronically ill-appearing male ) Nutritional Appearance: obese Limitations: no limitations HENMT: Head: normal to inspection Eyes: Conjunctivae: conjunctivae normal Pupils: Equal, round and reactive pupils present Neck: Neck: normal visual inspection, no lymphadenopathy and no meningeal signs Chest: Chest palpation & inspection: no tenderness Other: Yet no tenderness or crepitus upon palpation. Resp: Effort & Inspection: normal respiratory effort Auscultation: clear to auscultation bilaterally Cardio: Rate: regular rate Rhythm: regular rhythm Heart sounds: no murmurs GI: Inspection: non-distended GI Palp: Yes Soft to palpation and No Tenderness to palpation present (GI) Auscultation: normal bowel sounds O ther: Protuberant Back/Spine/Pelvis: Back: no CVA tenderness Skin: General skin exam: normal color Other: There is ecchymosis present to the left flank left lateral abdomen. Neuro: General: patient oriented x3, moves all extremities and no focal motor deficits Speech: normal speech Extrem: General: normal to inspection and no pedal edema Psych: Mental Status: mental status grossly normal Affect: normal affect Course Course Emergency Course: Physical exam as noted. Workup was initiated with labs and imaging. The urinalysis is suspicious for acute urinary tract infection. Rocephin 2 g IV push initiated. Lactic acid and blood cultures x2 ordered. CT scan showing thickening of the bladder wall once again suspicious for cystitis. Patient's hemoglobin is at baseline a preserved. Patient is not presenting with toxic appearance does not meet sepsis criteria. Shared decision-making performed with the patient that he is comfortable with discharge on antibiotics. INR is within normal limits at 2.6. Vital Signs Vital signs: Vital Signs Temperature 97.6 F 03/06/25 14:51 Pulse Rate 103 H 03/06/25 14:51 Respiratory Rate 18 03/06/25 14:51 Blood Pressure 117/74 03/06/25 14:51 Pulse Oximetry 100 03/06/25 14:51 Oxygen Delivery Room Air 03/06/25 14:51 Temperature 97.6 F 03/06/25 14:51 Pulse Rate 97 03/06/25 18:21 Respiratory Rate 20 03/06/25 18:21 Blood Pressure 124/76 03/06/25 18:21 Pulse Oximetry 94 03/06/25 18:21 Oxygen Delivery Room Air 03/06/25 15:55 MDM - Male Genitourinary MDM Narrative Medical decision making narrative: Patient at high risk for bleeding due to use of Coumadin, however his INR is at a normal level at 2.6. See ED Course for definitive plan and treatment. Differential Diagnosis Differential diagnosis: Likely urinary tract infection (Bladder hemorrhage), urethritis and other (bladder hemorrhage) Lab Data 03/06/25 17:58 03/06/25 17:58 Labs: Lab Results 03/06/25 03/06/25 Range/Units 14:52 17:58 WBC 4.4 L (4.5-10.0) K/mm3 RBC 3.74 L (4.6-6.20) M/mm3 Hgb 11.0 L (14.0-18.0) g/dL Hct 34.0 L (42.0-52.0) % MCV 90.9 (80-100) fl MCH 29.4 (26-34) pg MCHC 32.4 (32-36) g/dl RDW 14.5 (11.5-14.5) % Plt Count 202 (150-375) k/mm3 MPV 10.3 (7.4-10.4) fl Immature Gran % (Auto) 0.7 H (0-0.5) % Neut % (Auto) 45.6 (45.5-73.1) % Lymph % (Auto) 28.9 (18.3-44.2) % [place] % (Auto) 18.6 H (2.6-8.5) % Eos % (Auto) 5.3 H (0-4.4) % Baso % (Auto) 0.9 (0.2-1.2) % Lymph # (Auto) 1.26 (0.9-3.2) K/mm3 [place] # (Auto) 0.8 H (0.1-0.6) K/mm3 Eos # (Auto) 0.2 (0-0.3) K/mm3 Baso # (Auto) 0.0 (0.0-0.1) K/mm3 Abs Immat Gran (auto) 0.03 (0.00-0.031) K/mm3 Absolute Neuts (auto) 2.0 (1.3-6.7) K/mm3 Absolute Nucleated RBC 0.000 (0.0-0.012) K/mm3 Nucleated RBC % 0.0 (0.0-0.2) % PT 27.6 H (11.1-14.7) Seconds INR 2.6 APTT 42.7 H (22.3-36.8) Seconds Sodium Pending Potassium Pending Chloride Pending Carbon Dioxide Pending Anion Gap Pending BUN Pending Creatinine Pending Estim Creat Clear Calc Pending Estimated GFR Pending Glucose Pending Lactic Acid Pending Calcium Pending Total Bilirubin Pending AST Pending ALT Pending Alkaline Phosphatase Pending Total Protein Pending Albumin Pending Urine Color [place] H (Yellow) Urine Appearance Turbid H (Clear) Urine pH 5.0 (5.0-9.0) Ur Specific [place] 1.041 H (1.001-1.035) Urine Protein 2+ H (Negative) mg/dL Urine Glucose (UA) 2+ H (Negative) mg/dL Urine Ketones Negative (Negative) mg/dL Ur Blood (Man) 3+ H (Negative) Urine Nitrate Negative (Negative) Urine Bilirubin 2+ H (Negative) Urine Urobilinogen 0.2 (<2.0) mg/dL Add Ur Microanalysis Reviewed Leukocyte Esterase Rfl 2+ H (Negative) BENJAMIN/UL Urine RBC >100 H (0-2) /hpf Urine WBC >100 H (0-3) /hpf Ur Squamous Epith Cells Few (Few) /hpf Urine Bacteria None seen /hpf Urine Casts 0-2 Imaging Data Radiologist's impression: IMPRESSION: Improving segmental left basilar atelectasis/consolidation and pleural effusion. Cholelithiasis without evidence of cholecystitis. Moderate volume ascites. Fat and fluid containing umbilical hernia with considerable surrounding inflammation/edema, correlate for signs of infection or panniculitis. Findings suggestive of cystitis, correlate with urinalysis. Reviewed, dictated and finalized at location K. Discharge Plan Discharge Clinical Impression: Urinary tract infection Patient Disposition: Home Condition: Stable Instructions: Antibiotic Form, Urinary Tract Infection in Men (ED) Additional Instructions: Thank you for allowing us to evaluate the emergency this evening a workup consisting of labs and imaging is consistent with hemorrhagic cystitis. He received a dose of antibiotics here in the emergency room inter being discharged home with the same. Your hemoglobin is at its baseline which is a reflection of your blood counts. In addition your White blood cells are normal and you do not appear to have an overwhelming infection. You received a dose of antibiotics here and are being discharged home on antibiotics as well. Your INR is 2.6. Please take all medications as ordered and follow up with your PCP this coming week, no later than Monday or Monday. If at any point you are having worsening of your symptoms, return to the ER. Patient Language: Malawian Prescriptions: New cefdinir 300 mg capsule 300 mg PO Q12H Qty: 20 0RF No Action calcitriol 0.25 mcg Capsule 0.25 mcg PO QAM ergocalciferol (vitamin D2) [Vitamin D2] 50,000 unit Capsule 50,000 unit PO WEEKLY Rx Instructions: on mondays at 0900 nitroglycerin 0.4 mg Tablet, Sublingual 0.4 mg SUBLINGUAL Q5-15M PRN (Reason: Chest Pain) Patient Comments: pt states he needs his prescription renewed (DME) Omnipod 5 G6 Pods (Gen 5) Cartridge SUBCUT Qty: 45 2RF Rx Instructions: Change every 48 hours metoprolol tartrate 50 mg tablet 50 mg PO Q12H Patient Comments: patient states he takes 50mg BID (0900, 2100) not 100mg Daily insulin aspart U-100 [Novolog FlexPen U-100 Insulin] 100 unit/mL (3 mL) insulin pen 15 unit subcut TIDWMEAL Rx Instructions: Take 12 units premeal +SSI 150-170: 1 unit 171-190: 2 units 191-210: 3 units 210-230: 4 units 231-250: 5 units 251-270: 6 units 271-290: 7 units 291-310: 8 units 310-330: 9 units 331-350: 10 units 351-370: 11 units 371-390: 12 units 391-410: 13 units >411 14 units ezetimibe [Zetia] 10 mg Tablet 10 mg PO DAILY cetirizine [All Day Allergy (cetirizine)] 10 mg Tablet 10 mg PO DAILY atorvastatin 80 mg tablet 80 mg PO DAILY albuterol sulfate [ProAir HFA] 90 mcg/actuation HFA aerosol inhaler 1 inh inhalation QID PRN (Reason: shortness of breath or wheezing) Qty: 8.5 0RF febuxostat 40 mg tablet 40 mg PO QPM Linzess 72 mcg capsule 72 mcg PO DAILY PRN (Reason: Diarrhea) omeprazole 20 mg capsule,delayed release(DR/EC) 20 mg PO DAILY aspirin 81 mg capsule 81 mg PO DAILY colchicine 0.6 mg capsule 0.6 mg PO 3XW Rx Instructions: monday, monday, fridays gentamicin 0.1 % cream 1 applic topical HS tamsulosin 0.4 mg capsule 0.4 mg PO BID Patient Comments: 0900, 1700 potassium chloride 20 mEq tablet extended release 20 meq PO DAILY torsemide 100 mg tablet 100 mg PO DAILY icosapent ethyl [Vascepa] 1 gram capsule 1 g PO QID amlodipine 10 mg tablet 10 mg PO HS Gvoke HypoPen 2-Pack 1 mg/0.2 mL auto-injector See Rx Instructions .ROUTE .COMPLEX PRN (Reason: Hypoglycemia) Rx Instructions: INJECT 1 MG(0.2 ML) UNDER THE SKIN ONCE A SINGLE DOSE, MAY REPEAT ONCE AFTER 15 MINUTES IF NO RESPONSE calcium acetate(phosphat bind) 667 mg capsule 667 mg PO QID cyclobenzaprine 10 mg tablet 5 - 10 mg PO TID PRN (Reason: muscle spasm) Qty: 10 0RF famotidine 40 mg tablet 40 mg PO HS lidocaine 5 % adhesive patch,medicated 1 patch transdermal Q24H Patient Comments: Back warfarin 5 mg tablet 3 mg PO DAILY Humulin N NPH Insulin KwikPen 100 unit/mL (3 mL) insulin pen 40 unit subcut DAILY Patient Comments: Patient states it is 40 not 30 Rx Instructions: take 30 units before peritoneal dialysis (DME) pen needle, diabetic [BD Lucrecia 2nd Gen Pen Needle] 32 gauge x 5/32 needle See Rx Instructions .ROUTE .COMPLEX Qty: 400 1RF Dose Instruction: TO ADMINISTER INSULIN DIRECTED Rx Instructions: TO ADMINISTER INSULIN 4 times daily (DME) Dexcom G6 Transmitter Device See Rx Instructions .Route Qty: 1 0RF Rx Instructions: change every 90 days levothyroxine 25 mcg tablet 25 mcg PO DAILY Qty: 90 1RF insulin glargine U-300 conc [Toujeo SoloStar U-300 Insulin] 300 unit/mL (1.5 mL) insulin pen 50 unit subcut DAILY 90 Days Qty: 18 2RF (DME) OneTouch Verio test strips Strip See Rx Instructions .Route Qty: 300 0RF Rx Instructions: test bs 3 times daily (DME) Dexcom G6 Sensor Device See Rx Instructions .Route Qty: 9 0RF Rx Instructions: change every 10 days Follow-up/Referrals: Matthew,MD Aditya [Primary Care Provider] -
--- OUTSIDE RECORDS SUMMARY | 2025-03-06 17:41 | XMS_ITS | Encounter Summary ---
Author Organization [facility] Address [address] [address] Phone Care Team Providers Care Energy Attorney Name Role Phone Unavailable Primary Care Provider Unavailabl e Reason for Visit * Reason Comments Med Refill Encounter Details Date Type Department Care Team (Late st Contact Info) Description 02/13/2019 Refill [facility] [address] [address] Leandro Reyes MD [address] [address] Social History Tobacco Use Types Packs/Day Years [...]
--- OUTSIDE RECORDS SUMMARY | 2025-03-06 17:41 | XMS_ITS | Clinical Summary ---
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 Name Role Phone Unavailable Primary Care Provider Unavailabl e Allergies Active Allergy Reactions Criticality Noted Date Comments Ticagrelor 12/26/2018 Medications cloNIDine (CATAPRES) 0.1 MG tablet 1 tab 2 times daily 0 8 Active nitroglycerin (NITROSTAT) 0.4 MG SL tablet PRN as directed 0 8 Active clopidogrel (PLAVIX) 75 MG tablet 1 tab daily 0 8 Active Cholecalciferol (VITAMIN D3) 40570 units capsule 1 tab by mouth once [...] on file Legal Sex Male 9:05 AM [facility] Gender Identity Not on file Sexual Orientation Not on file Last Filed Vital Signs Vital Sign Reading Time Taken Comments Blood Pressure 156/55 10/29/2019 10:50 AM CDT Pulse 56 10/29/2019 10:50 AM CDT Temperature - - Respiratory Rate - - Oxygen Saturation - - Inhaled Oxygen Concentration - - Weight 124 kg (273 lb) 10/29/2019 10:50 AM CDT Height 177.8 cm (5' 10) 10/29/2019 10:50 AM CDT Body Mass Index 39.17 10/29/2019 10:50 AM CDT Plan of Treatment Health Maintenance Due Date Last Done Comments Influenza Vaccine (#1) 2025 06/04/2022, 2015 Insurance [employer]ICARE
--- OUTSIDE RECORDS SUMMARY | 2025-03-06 17:41 | XMS_ITS | Referral Summary ---
Author Organization [facility] Address [address] [place] [address] Care Team Providers Care Iron Bender Name Role Phone Aditya Castro MD Primary Care Provider [phone] Alondra Lambert RN Unavailable [phone] Shannon Brock MD, Hamlet Gordillo. Unavailable [phone] Leandro Reyes MD Unavailable [phone] Encounters Date Type Department Care Team Description 02/20/2025 Telephone [facility] Transplant Kidney [address] [facility] [address] [place] [address] [id number] [place] [address] Alondra Lambert, LUAN 02/20/2025 Telephone [facility] Transplant Kidney [address] [facility] [address] [phone] [place] [address] Alondra Lambert RN 02/13/2025 Telephone Cardiovascular and Thoracic Surgery [address] [facility] [address] [place] [address] Lorne Mcnulty MD Med Refill 12/06/2024 Documentation [facility] Transplant Kidney [address] [facility] [address] [phone] [place] [address] Alondra Lambert, LUAN from Last 3 Months [...] Pen Needle) 31 gauge x 01/03 needle 01/31/20 18 Active aspirin 81 mg [...] 1 tablet (25 mcg total) by mouth information consultant before breakfast 30 tablet 1 11/04/19 24 [...] mg SL tablet 12/28/19 18 Active peg 640-vjhfmpaqplir-yy ycerin (ARTIFICAL TEARS) 1-0.2-0.2 % ophthalmic solution 1 drop 4 (four) times a day 07/07/20 22 Active potassium chloride ER 20 mEq CR tablet Active Active Problems Problem Noted Date Diagnosed Date End stage renal disease 07/29/2024 Nonrheumatic aortic valve stenosis 11/22/2023 Status post aortic valve replacement 11/22/2023 Status post coronary artery bypass grafting 10/2023 CAD in [place] artery 10/13/2023 Anemia 06/22/2022 Assessment & Plan (06/29/2022 10:12 AM AUDIOVISUAL LIBRARIAN): Stable, likely 2/2 anemia from ESRD, no [...] 06/22/2022 Assessment & Plan (06/29/2022 10:12 AM AUDIOVISUAL LIBRARIAN): - Renal consulted, s/p CRRT in the ICU now back on PD. Tolerated well and nephrology following - Trialysis catheter removed - Continue vitamins for renal bone mineral disease. Assessment & Plan (06/28/2022 3:29 PM AUDIOVISUAL LIBRARIAN): - Renal consulted, s/p CRRT in the [...] 06/22/2022 Assessment & Plan (06/29/2022 10:12 AM AUDIOVISUAL LIBRARIAN): C/b cardiogenic shock requiring impella in the setting of cath and AHRF 2/2 pulmonary edema, now resolved. TTE demonstrating recovered EF 65% with grade I diastolic dysfunction. - metop as above - continue low dose losartan 12.5mg daily, ok per nephro. Tolerating well - volume management per PD Assessment & Plan (06/28/2022 3:29 PM AUDIOVISUAL LIBRARIAN): C/b cardiogenic shock requiring impella in the [...] 06/22/2022 Assessment & Plan (06/29/2022 10:12 AM AUDIOVISUAL LIBRARIAN): Converted to NSR overnight on 06/24. CHADsVASc of 4 not on anticoagulation prior to admission. - cardiology consulted - recommended ongoing rate control - holding off on a/c with high risk for bleeding while on DAPT - reduced metop to 25mg BID in the setting of hypotension, HR 70s NSR Assessment & Plan (06/28/2022 3:30 PM AUDIOVISUAL LIBRARIAN): Converted to NSR overnight on 06/24. CHADsVASc [...] 08/22/2021 Assessment & Plan (06/29/2022 10:11 AM AUDIOVISUAL LIBRARIAN): With recurrent chest pain post-cath. He has [...] today Assessment & Plan (06/28/2022 3:30 PM AUDIOVISUAL LIBRARIAN): With recurrent chest pain post-cath. He has [...] 06/22/2022 Assessment & Plan (06/29/2022 10:11 AM AUDIOVISUAL LIBRARIAN): Secondary to NSTEMI, s/p Impella since removed on 06/10. Resolved. Assessment & Plan (06/23/2022 4:55 PM CDT): Secondary to NSTEMI, s/p Impella since removed on 06/10. Resolved. Assessment & Plan (06/22/2022 8:22 PM CDT): -Secondary to NSTEMI, s/p Impella since removed on 06/10. Acute hypoxemic respiratory failure 06/09/2022 Assessment & Plan (06/29/2022 10:12 AM AUDIOVISUAL LIBRARIAN): Secondary to ACS and flash pulmonary edema, [...] (06/10/2022): Added automatically from request for surgery [id number] Abnormal cardiovascular stress test 12/29/2020 Overview (12/29/2020): Added automatically from request for surgery [id number] Coronary artery disease of n ative artery of [place] heart with stable angina pectoris ([facility]) 05/23/2017 History of coronary artery [...] 01/18/2013 Assessment & Plan (06/29/2022 10:12 AM AUDIOVISUAL LIBRARIAN): A1c well controlled on admission. He uses [...] session Assessment & Plan (06/28/2022 3:28 PM AUDIOVISUAL LIBRARIAN): A1c well controlled on admission. He uses [...] materials from doctor or pharmacy Never 12/01/2023 [facility] Utilities Answer Date Recorded In the past 12 months has th e [employer], gas, oil, or water [employer] threatened to shut off services in your [...] How often do you attend jew or latter-day serv ices? Never 08/01/2024 Do you belong [...] in a fpc (including now)? No 10/16/2023 Housing Stability Vital [...] were you homeless or living in a fpc (including now)? No 08/01/2024 Personal Safety Answer Date Recorded Have you ever been in or are you currently in a harmful physical or emotional relationship or is someone making you feel afraid or unsafe? 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 Male 3:42 AM AUDIOVISUAL LIBRARIAN Gender Identity Not on file Sexual Orientation Not on file Last Filed Vital Signs Vital Sign Reading Time Taken Comments Blood Pressure 122/75 07/29/2024 1:00 PM AUDIOVISUAL LIBRARIAN Pulse 116 07/29/2024 1:00 PM AUDIOVISUAL LIBRARIAN Temperature 36.8 C (98.2 F) 07/29/2024 1:00 PM AUDIOVISUAL LIBRARIAN Respiratory Rate 16 12/01/2023 11:1 3 AM CDT Oxygen Saturation 96% 12/01/2023 11: 13 AM CDT Inhaled Oxygen Concentration - - Weight 121.2 kg (267 lb 1.6 oz) 07/29/2024 1:00 PM AUDIOVISUAL LIBRARIAN Height 177.8 cm (5' 10) 07/29/2024 1:00 PM AUDIOVISUAL LIBRARIAN Body Mass Index 38.32 07/29/2024 1:00 PM AUDIOVISUAL LIBRARIAN Plan of Treatment Not on file Medical Devices Implanted Type Area National Account Manager Device Identifier Shelf Expiration Date Model / Serial / Lot Kyle Vascular Device Clsr Perclose Prostyle Sut-Mediatd Closure-Repair Sys 79706-54 - [id number] Implanted:Qty: 1 on 06/10/2022 by Champ Osborne MD PhD at [facility] Other - see comments Right: Femoral [employer] Vascular 01/19/2024 [id number] / / [id number] [employer] Mary Synergy Xd Monorail 2.5mm 48mm 144cm Delivery System 1 Access [id number] - [id number] Implanted:Qty: 1 on 06/07/2022 by Champ Osborne MD PhD at [facility] Stent [employer] Mary 10/27/2023 [id number] / / [id number] [employer] Mary Synergy Xd Monorail 3mm 24mm 144cm Delivery System 1 Access Port [id number] - [id number] Implanted:Qty: 1 on 06/07/2022 by Champ Osborne MD PhD at [facility] Stent [employer] Mary 07/28/2023 [id number] / / [id number] [employer] Mary Synergy Xd Monorail 2.5mm 12mm 144cm Delivery System 1 Access [id number] - [id number] - [id number] Implanted:Qty: 1 on 06/07/2022 by Champ Osborne MD PhD at [facility] Stent [employer] Mary 05/03/2023 [id number] / [id number] / [id number] Daig Mary [id number] Device Closure Angio-Seal Vip Bondek-Plus Polyglyd L70 Cm Od6 Fr Odsec.035 In Vascular - [id number] Implanted:Qty: 1 on 01/21/2021 by Hamlet Ortega Jr., MD at [facility] Left: Groin [employer] Mary [id number] / / Kyle Vascular Device Clsr Perclose Prostyle Sut-Mediatd Closure-Repair Sys 75113-94 - [id number] Implanted:Qty: 1 on 06/07/2022 by Champ Osborne MD PhD at [facility] Kyle Vascular 01/19/2024 [id number] / [id number] Kyle Vascular Device Clsr Perclose Prostyle Sut-Mediatd Closure-Repair Sys 04646-01 - [id number] Implanted:Qty: 1 on 06/07/2022 by Champ Osborne MD PhD at [facility] Kyle Vascular 11/19/2023 [id number] / [id number] Bard Access Systems Power-Trialysis 13fr 30cm 3 Lumen Kink Resistance Symmetric Tip [id number] - [id number] Implanted:Qty: 1 on 06/07/2022 by Champ Osborne MD PhD at [facility] Right: Jugular Ramirez Chapito 07/20/2024 [id number] / / [id number] [employer] Impella Cp Percutaneous Left Ventricular Assist Device 8435-4981 - [id number] Implanted:Qty: 1 on 06/07/2022 by Champ Osborne MD PhD at [facility] Left: Ventricle [employer] [id number] / / Bard Access Systems Power-Trialysis 13fr 20cm 3 Lumen Short Term Dialysis Straight [id number] - [id number] Implanted:Qty: 1 on 06/18/2022 at [facility] Ramirez Bedford 07/20/2024 [id number] / / [id number] Rl Biomet Inc Screw Bone Slf Drl Full Thread Locking 3.5x14mm Ti 100.035.14 - [id number] Implanted:Qty: 6 on 10/17/2023 by Lorne Mcnulty MD at [facility] N/A: Sternum [employer]l [employer] Inc 100.035.1 4 / / Rl Biomet Inc Plate Bone Low Profile 6 Hole H Shape Sternum Ti 115.102.06 - [id number] Implanted:Qty: 2 on 10/17/2023 by Lorne Mcnulty MD at [facility] N/A: Sternum [employer] 115.102.0 6 / / Rl [employer] Inc Plate Bone Low Profile 6 Hole O Shape Sternum Ti 115.104.06 - [id number] Implanted:Qty: 1 on 10/17/2023 by Lorne Mcnulty MD at [facility] N/A: Sternum [employer] 115.104.0 6 / / On-X Intrnl Valve Coronary Aortic Mechanical On X 25mm Onxane-25 - [id number] - [id number] Implanted:Qty: 1 on 10/17/2023 by Lorne Mcnulty MD at [facility] N/A: Heart On-X Intrnl 01/22/2028 ONXANE-25 / [id number] / Rl [employer] Inc Screw Bone Slf Drl Full Thread Locking 3.5x18mm Ti 100.035.18 - [id number] Implanted:Qty: 12 on 10/17/2023 by Lorne Mcnulty MD at [facility] N/A: Sternum Rl [employer] Inc 100.035.1 8 / / Explanted Type Area National Account Manager Device Identifier Shelf Expiration Date Model / Serial / Lot Bard Peripheral Vascular Bard .25x.25in [place] Thk1.65mm Square Pledget Cardiovascular Ptfe [id number] - [id number] Explanted:Qty: 1 on 10/17/2023 by Lorne Mcnulty MD at [facility] N/A: Heart Bard Peripheral Vascular 05/18/2026 [id number] / / Procedures Procedure Name Priority Date/Time Associated Diagnosis Comments HEPATITIS C ANTIBODY Routine 07/29/2024 11:01 AM AUDIOVISUAL LIBRARIAN End stage renal disease (HCC) EGFR Routine 07/29/2024 11:01 AM AUDIOVISUAL LIBRARIAN End stage renal disease (HCC) HEMOGLOBIN A1C Routine 07/29/2024 11:01 AM AUDIOVISUAL LIBRARIAN End stage renal disease (HCC) LIPID PANEL Routine 07/29/2024 11:01 AM AUDIOVISUAL LIBRARIAN End stage renal disease (HCC) PSA SCREEN Routine 07/29/2024 11:01 AM AUDIOVISUAL LIBRARIAN End stage renal disease (HCC) TSH Routine 10/27/2023 2:30 AM AUDIOVISUAL LIBRARIAN from Last 3 Months or Most Recently Relevant to Health Maintenance Results * (ABNORMAL) eGFR (07/29/2024 11:01 AM AUDIOVISUAL LIBRARIAN) eGFR 7(L) >=60 mL/min/1. 73 m2 Comment: [...] reviewed 2021. Blood 07/29/2024 11:0 1 AM AUDIOVISUAL LIBRARIAN 07/29/2024 11:33 AM AUDIOVISUAL LIBRARIAN us Jossie King MD LAB BLOOD ORDERABL ES Final Result [facility] Department [place] [address] * PSA screen (07/29/2024 11:01 AM AUDIOVISUAL LIBRARIAN) PSA-Total 0.55 <=3.90 ng/mL Comment: Interpretive Data [...] revised 21. Blood 07/29/2024 11:0 1 AM AUDIOVISUAL LIBRARIAN 07/29/2024 11:33 AM AUDIOVISUAL LIBRARIAN Narrative [facility] - 07/29/2024 12:39 PM AUDIOVISUAL LIBRARIAN This lab is being obtained as part of a Kidney transplant evaluation, is time sensitive, and should only be drawn during the evaluation visit at [address] Lab[address] Jossie King MD LAB BLOOD ORDERABL ES Final Result Performing Organization Address [facility] de Phone Number [facility] [place] [address] * Hepatitis C antibody Blood (07/29/2024 11:01 AM AUDIOVISUAL LIBRARIAN) Pathologist [facility] [place] Hep C Ab Nonreactive Nonreactive Comment:Antibodies to HCV no t detected. Does NOT exclude the possibility of recent exposure to HCV. Current interpretive data was last revised on 22 Blood 07/29/2024 11:0 1 AM AUDIOVISUAL LIBRARIAN 07/29/2024 11:32 AM AUDIOVISUAL LIBRARIAN Narrative [facility] - 07/29/2024 12:47 PM AUDIOVISUAL LIBRARIAN This lab is being obtained as part of a Kidney transplant evaluation, is time sensitive, and should only be drawn during the evaluation visit at [address] Lab[address] Jossie King MD LAB MICROBIOLOGY - GENERAL ORDERABLES Final Result Performing Organization Address [facility] de Phone Number [facility] [place] [address] * (ABNORMAL) Hemoglobin A1c (07/29/2024 11:01 AM AUDIOVISUAL LIBRARIAN) Pathologist [facility] [place] Hgb A1C 9.0(H) 4.0 - 5.6 % Estimated Average Glucose 212 mg/dL [facility] Comment: The ADA recommends reporting an estimated Average Glucose (eAG) with all Hemoglobin A1c results using the equation derived from a study of 507 normal and diabetic adults. Minority populations were underrepresented and children were not included. (Diabetes Care 2020; 43(S1): S66-S76). The eAG is not equivalent to a fasting glucose. Blood 07/29/2024 11:0 1 AM AUDIOVISUAL LIBRARIAN 07/29/2024 11:34 AM AUDIOVISUAL LIBRARIAN Narrative [facility] - 07/29/2024 11:53 AM AUDIOVISUAL LIBRARIAN This lab is being obtained as part of a Kidney transplant evaluation, is time sensitive, and should only be drawn during the evaluation visit at [facility] Lab. us Jossie King MD LAB BLOOD ORDERABL ES Final Result [facility] Department [place] [address] * (ABNORMAL) Lipid panel (07/29/2024 11:01 AM AUDIOVISUAL LIBRARIAN) Cholesterol 114 30 - 199 mg/dL Comment: [...] on 2018. Triglycerides 66 <=149 mg/dL [facility] Comment: Interpretive Data Ages < or = [...] revised on 2018. HDL 29(L) >=40 mg/dL [facility] Comment: Interpretive Data Ages < or = [...] 2018. LDL, calculated 71 <=129 mg/dL [facility] Comment: Interpretive Data Ages < or [...] revised on 2024. Non-HDL Cholesterol 85 mg/dL [facility] Comment: Interpretive Data Ages < or = [...] revised on 2018. Chol/HDL ratio 4 [facility] Blood 07/29/2024 11:0 1 AM AUDIOVISUAL LIBRARIAN 07/29/2024 11:33 AM AUDIOVISUAL LIBRARIAN Narrative [facility] - 07/29/2024 12:10 PM AUDIOVISUAL LIBRARIAN This lab is being obtained as part of a Kidney transplant evaluation, is time sensitive, and should only be drawn during the evaluation visit at [facility] Lab. Jossie King MD LAB BLOOD ORDERABL ES Final Result [facility] Department [place] [address] * (ABNORMAL) TSH (10/27/2023 2:30 AM AUDIOVISUAL LIBRARIAN) [facility] Signature Thyroid Stimulating Hormone 13.20(H) 0.30 - 4.20 mcIUnit/mL Blood 10/27/2023 2:30 AM AUDIOVISUAL LIBRARIAN 10/27/2023 2:42 AM AUDIOVISUAL LIBRARIAN Lorne Mcnulty MD LAB BLOOD ORDERABLES Final Result [facility] [address] Department [place] [address] from Last 3 Months or Most Recently Relevant to Health Maintenance Insurance IDPA [facility] MEDICARE ADVANTAGE IDPA [facility] MEDICARE ADVANTAGE TRANSPLANT [employer] MEDICARE RISK IDPA TRANSPLANT [employer] MEDICARE RISK IDPA Advance Directives For more information, please contact: [phone] * Full Code (Latest Code Status on File) Date Activated Date Inactivated Comments 10/13/2023 11:32 PM 11/03/2023 11:42 PM * Full Code Date Activated Date Inactivated Comments 06/05/2022 6:17 AM 06/29/2022 6:20 PM * Full Code Date Activated Date Inactivated Comments 06/05/2022 4:43 AM 06/05/2022 4:43 AM * Full Code Date Activated Date Inactivated Comments 06/04/2022 9:55 PM 06/05/2022 4:43 AM Care Teams Iron Bender Relationship Specialty Start Date End Date Aditya Castro MD [address] [place] [address] PCP - General 10/17/19 Alondra Lambert, RN [address] [address] Door Person 03/06/24 Hamlet Ortega Jr., MD [address] [place] [address] Consulting Physician Cardiovascular Disease 05/10/24 Leandro Reyes MD [address] [facility] 1 [place] [address] Consulting Physician Nephrology 07/30/24
--- OUTSIDE RECORDS SUMMARY | 2025-03-06 17:41 | XMS_ITS | Continuity of Care Document ---
Author Organization [facility] Address [address] [place] [address] [place] [address] Phone Care Team Providers Care Emergency Services Professional Name Role Phone Carlos Garcia Unavailable Unavailable Advance Directives Directive Yes / No Effective Date File Name No Information Encounters Encounter Description Practice Location Reason(s) For Visit Diagnoses Date Provider Providers Copied on Encounter [facility], [address] [place] [address] [address], [place], [place], [id number], [place] tel:[phone] [facility] No Information Radha Gonzalez. [address] [place], [place], [facility], [place]. tel:[phone] Referring Provider: Yannick Remy, [facility] [address], [place], [place], [facility]. tel:[phone] Family History Family Member Type Diagnosis Age At Onset No Information Payers Payer name Insurance type Covered constitution party ID Authoriza tion(s) Medicaid [facility] [id number] Social History Type Description Quantity Date Captured [...]
--- OUTSIDE RECORDS SUMMARY | 2025-03-06 17:41 | XMS_ITS | Encounter Summary ---
Author Organization [facility] Address [address] [address] Phone Care Team Providers Care Bridge Maintainer Name Role Phone Unavailable Primary Care Provider Unavailabl e Reason for Visit * Reason Comments Med Refill Encounter Details Date Type Department Care Team (Late st Contact Info) Description 07/04/2019 Refill [facility] [address] [address] Leandro Reyes MD [address] [address] Social History Tobacco Use Types Packs/Day Years [...]
--- OUTSIDE RECORDS SUMMARY | 2025-03-06 17:41 | XMS_ITS | Clinical Summary ---
Author Organization [facility] Address [address] [place] [address] Care Team Providers Care Implementation Technician Name Role Phone Aditya Castro MD Primary Care Provider [phone] Alondar Lambert RN Unavailable Shannon Brock MD, Hamlet P. 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 Tolerated well and nephrology following - Trialysis catheter removed - Continue vitamins for renal bone mineral disease. Assessment & Plan (06/28/2022 3:29 PM HOME SECURITY ALARM INSTALLER): - Renal consulted, s/p CRRT in the [...] 06/22/2022 Assessment & Plan (06/29/2022 10:12 AM HOME SECURITY ALARM INSTALLER): C/b cardiogenic shock requiring impella in the setting of cath and AHRF 2/2 pulmonary edema, now resolved. TTE demonstrating recovered EF 65% with grade I diastolic dysfunction. - metop as above - continue low dose losartan 12.5mg daily, ok per nephro. Tolerating well - volume management per PD Assessment & Plan (06/28/2022 3:29 PM HOME SECURITY ALARM INSTALLER): C/b cardiogenic shock requiring impella in the [...] 06/22/2022 Assessment & Plan (06/29/2022 10:12 AM HOME SECURITY ALARM INSTALLER): Converted to NSR overnight on 06/24. CHADsVASc of 4 not on anticoagulation prior to admission. - cardiology consulted - recommended ongoing rate control - holding off on a/c with high risk for bleeding while on DAPT - reduced metop to 25mg BID in the setting of hypotension, HR 70s NSR Assessment & Plan (06/28/2022 3:30 PM HOME SECURITY ALARM INSTALLER): Converted to NSR overnight on 06/24. CHADsVASc [...] 08/22/2021 Assessment & Plan (06/29/2022 10:11 AM HOME SECURITY ALARM INSTALLER): With recurrent chest pain post-cath. He has [...] today Assessment & Plan (06/28/2022 3:30 PM HOME SECURITY ALARM INSTALLER): With recurrent chest pain post-cath. He has [...] 06/22/2022 Assessment & Plan (06/29/2022 10:11 AM HOME SECURITY ALARM INSTALLER): Secondary to NSTEMI, s/p Impella since removed on 06/10. Resolved. Assessment & Plan (06/23/2022 4:55 PM CDT): Secondary to NSTEMI, s/p Impella since removed on 06/10. Resolved. Assessment & Plan (06/22/2022 8:22 PM CDT): -Secondary to NSTEMI, s/p Impella since removed on 06/10. Acute hypoxemic respiratory failure 06/09/2022 Assessment & Plan (06/29/2022 10:12 AM HOME SECURITY ALARM INSTALLER): Secondary to ACS and flash pulmonary edema, [...] (06/10/2022): Added automatically from request for surgery [id number] Abnormal cardiovascular stress test 12/29/2020 Overview (12/29/2020): Added automatically from request for surgery [id number] Coronary artery disease of n ative artery of [place] heart with stable angina pectoris ([facility]) 05/23/2017 History [...] 01/18/2013 Assessment & Plan (06/29/2022 10:12 AM HOME SECURITY ALARM INSTALLER): A1c well controlled on admission. He uses [...] session Assessment & Plan (06/28/2022 3:28 PM HOME SECURITY ALARM INSTALLER): A1c well controlled on admission. He uses [...] Type Department Care Team Description 02/20/2025 Telephone [facility] Transplant Kidney [address] [address] [facility] [phone] [place] [address] Alondra Lambert, LUAN 02/20/2025 Telephone [facility] Transplant Kidney [address] [facility] [phone] [place] [address] Alondra Lambert, RN 02/13/2025 Telephone Cardiovascular and Thoracic Surgery [address] [facility] [address] [place] [id number] Lorne Mcnulty MD Med Refill 12/06/2024 Documentation [facility] Transplant Kidney [address] [facility] [phone] [place] [address] Alondra Lambert, RN from Last 3 Months Immunizations Immunization [...] materials from doctor or pharmacy Never 12/01/2023 [facility] Utilities Answer Date Recorded In the past 12 months has e [employer], gas, oil, or water [employer] threatened to shut off services in your [...] How often do you attend buddhist or jewish serv ices? Never 08/01/2024 Do you belong [...] any time in the past 12 [facility], were you homeless or living [...] file Legal Sex Male 3:42 AM HOME SECURITY ALARM INSTALLER Gender Identity Not on file Sexual Orientation Not on file Obstetrics History Last Filed Vital Signs Vital Sign Reading Time Taken Comments Blood Pressure 122/75 07/29/2024 1:00 PM HOME SECURITY ALARM INSTALLER Pulse 116 07/29/2024 1:00 PM HOME SECURITY ALARM INSTALLER Temperature 36.8 C (98.2 F) 07/29/2024 1:00 PM HOME SECURITY ALARM INSTALLER Respiratory Rate 16 12/01/2023 11:1 3 AM CDT Oxygen Saturation 96% 12/01/2023 11: 13 AM CDT Inhaled Oxygen Concentration - - Weight 121.2 kg (267 lb 1.6 oz) 07/29/2024 1:00 PM HOME SECURITY ALARM INSTALLER Height 177.8 cm (5' 10) 07/29/2024 1:00 PM HOME SECURITY ALARM INSTALLER Body Mass Index 38.32 07/29/2024 1:00 PM HOME SECURITY ALARM INSTALLER Plan of Treatment Health Maintenance Due Date [...] PCV21) 02/11/2025 02/12/2020, 12/30/2019, 08/26/2019 Influenza Vaccine (#1) 2025 , 07/19/2022, 06/04/2022, Additional history exists Lipid Panel 07/29/2025 07/29/2024, 09/22, 06/05/2022, Additional history exists eGFR 07/29/2025 07/29/2024, 0312/2023, 11/02/2023, Additional history exists Prostate Cancer Screening-PSA 07/29/2026 07/29/2024 DTaP/Tdap/Td Vaccine (4 - Td or Tdap) 10/21/2029 10/22/2019, 09/02/2017, 08/30/2016 Hepatitis B Screening Completed 07/29/2024 Hepatitis C Screening Completed 07/29/2024 , 03/23/2017, 03/26/2015 Medical Devices Implanted Type Area District Resource Officer Device Identifier Shelf Expiration Date Model / Serial / Lot Kyle Vascular Device Clsr Perclose Prostyle Sut-Mediatd Closure-Repair Sys 94289-95 - [id number] Implanted:Qty: 1 on 06/10/2022 by Champ Osborne MD PhD at [facility] Other - see comments Right: Femoral [employer] 01/19/2024 [id number] / / [id number] [employer] Mary Synergy Xd Monorail 2.5mm 48mm 144cm Delivery System 1 Access [id number] - [id number] Implanted:Qty: 1 on 06/07/2022 by Champ Osborne MD PhD at [facility] Stent [employer] Mary 10/27/2023 [id number] / / [id number] [employer] Mary Synergy Xd Monorail 3mm 24mm 144cm Delivery System 1 Access Port [id number] - [id number] Implanted:Qty: 1 on 06/07/2022 by Champ Osborne MD PhD at [facility] Stent [employer] Mary 07/28/2023 [id number] / / [id number] [employer] Mary Synergy Xd Monorail 2.5mm 12mm 144cm Delivery System 1 Access [id number] - [id number] - [id number] Implanted:Qty: 1 on 06/07/2022 by Champ Osborne MD PhD at [facility] Stent [employer] Mary 05/03/2023 [id number] / [id number] / [id number] [facility] [id number] Device Closure Angio-Seal Vip Bondek-Plus Polyglyd L70 Cm Od6 Fr Odsec.035 In Vascular - [id number] Implanted:Qty: 1 on 01/21/2021 by Hamlet Ortega Jr., MD at [facility] Left: Groin [employer] Mary [id number] / / Kyle Vascular Device Clsr Perclose Prostyle Sut-Mediatd Closure-Repair Sys 97178-17 - [id number] Implanted:Qty: 1 on 06/07/2022 by Champ Osborne MD PhD at [facility] [employer] 01/19/202464842-80 / [id number] Kyle [employer] Device Clsr Perclose Prostyle Sut-Mediatd Closure-Repair Sys 89148-70 - [id number] Implanted:Qty: 1 on 06/07/2022 by Champ Osbonre MD PhD at [facility] Kyle [employer]ascular 11/19/202374778-66 / [id number] Bard Access [employer] Power-Trialysis 13fr 30cm 3 Lumen Kink Resistance Symmetric Tip [id number] - [id number] Implanted:Qty: 1 on 06/07/2022 by Champ Osobrne MD PhD at [facility] Right: Jugular Ramirez [place] 07/20/2024 [id number] / / [id number] [employer] Impella Cp Percutaneous Left Ventricular Assist Device 0687-2521 - [id number] Implanted:Qty: 1 on 06/07/2022 by Champ Osborne MD PhD at [facility] Left: Ventricle [employer] [id number] / / Bard Access Systems Power-Trialysis 13fr 20cm 3 Lumen Short Term Dialysis Straight [id number] - [id number] Implanted:Qty: 1 on 06/18/2022 at [facility] Ramirez [place] 07/20/2024 [id number] / / [id number] Rl [employer] Inc Screw Bone Slf Drl Full Thread Locking 3.5x14mm Ti 100.035.14 - [id number] Implanted:Qty: 6 on 10/17/2023 by Lorne Mcnulty MD at [facility] N/A: Sternum [employer] Inc 100.035.1 4 / / Rl [employer] Plate Bone Low Profile 6 Hole H Shape Sternum Ti 115.102.06 - [id number] Implanted:Qty: 2 on 10/17/2023 by Lorne Mcnulty MD at [facility] N/A: Sternum [employer] 115.102.0 6 / / Rl [employer] Plate Bone Low Profile 6 Hole O Shape Sternum Ti 115.104.06 - [id number] Implanted:Qty: 1 on 10/17/2023 by Lorne Mcnulty MD at [facility] N/A: Sternum [employer] 115.104.0 6 / / On-X Intrnl Valve Coronary Aortic Mechanical On X 25mm Onxane-25 - [id number] - [id number] Implanted:Qty: 1 on 10/17/2023 by Lorne Mcnulty MD at [facility] N/A: Heart On-X Intrnl 01/22/2028 ONXANE-25 / [id number] / Rl [employer] Screw Bone Slf Drl Full Thread Locking 3.5x18mm Ti 100.035.18 - [id number] Implanted:Qty: 12 on 10/17/2023 by Lorne Mcnulty MD at [facility] N/A: Sternum [employer] 100.035.1 8 / / Explanted Type Area District Resource Officer Device Identifier Shelf Expiration Date Model / Serial / Lot Bard Peripheral Vascular Bard .25x.25in Chrisney Thk1.65mm Square Pledget Cardiovascular Ptfe [id number] - [id number] Explanted:Qty: 1 on 10/17/2023 by Lorne Mcnulty MD at [facility] N/A: Heart Bard Peripheral Vascular 05/18/2026 [id number] / / Procedures Procedure Name Priority Date/Time Associated Diagnosis Comments HEPATITIS C ANTIBODY Routine 07/29/2024 11:01 AM HOME SECURITY ALARM INSTALLER End stage renal disease (HCC) EGFR Routine 07/29/2024 11:01 AM HOME SECURITY ALARM INSTALLER End stage renal disease (HCC) HEMOGLOBIN A1C Routine 07/29/2024 11:01 AM HOME SECURITY ALARM INSTALLER End stage renal disease (HCC) LIPID PANEL Routine 07/29/2024 11:01 AM HOME SECURITY ALARM INSTALLER End stage renal disease (HCC) PSA SCREEN Routine 07/29/2024 11:01 AM HOME SECURITY ALARM INSTALLER End stage renal disease (HCC) TSH Routine 10/27/2023 2:30 AM HOME SECURITY ALARM INSTALLER from Last 3 Months or Most Recently Relevant to Health Maintenance Results * (ABNORMAL) eGFR (07/29/2024 11:01 AM HOME SECURITY ALARM INSTALLER) eGFR 7(L) >=60 mL/min/1. 73 m2 Comment: [...] reviewed 2021. Blood 07/29/2024 11:0 1 AM HOME SECURITY ALARM INSTALLER 07/29/2024 11:33 AM HOME SECURITY ALARM INSTALLER us Jossie King MD LAB BLOOD ORDERABL ES Final Result [facility] [place] [address] * PSA screen (07/29/2024 11:01 AM HOME SECURITY ALARM INSTALLER) PSA-Total 0.55 <=3.90 ng/mL Comment: Interpretive Data [...] revised 21. Blood 07/29/2024 11:0 1 AM HOME SECURITY ALARM INSTALLER 07/29/2024 11:33 AM HOME SECURITY ALARM INSTALLER Narrative [facility] - 07/29/2024 12:39 PM HOME SECURITY ALARM INSTALLER This lab is being obtained as part of a Kidney transplant evaluation, is time sensitive, and should only be drawn during the evaluation visit at [address] Lab[address] Jossie King MD LAB BLOOD ORDERABL ES Final Result Performing Organization Address [facility] Co de Phone Number [facility] Department [place] [address] * Hepatitis C antibody Blood (07/29/2024 11:01 AM HOME SECURITY ALARM INSTALLER) Pathologist [facility] Hep C Ab Nonreactive Nonreactive Comment:Antibodies to HCV no t detected. Does NOT exclude the possibility of recent exposure to HCV. Current interpretive data was last revised on 22 Blood 07/29/2024 11:0 1 AM HOME SECURITY ALARM INSTALLER 07/29/2024 11:32 AM HOME SECURITY ALARM INSTALLER Narrative [facility] 07/29/2024 12:47 PM HOME SECURITY ALARM INSTALLER This lab is being obtained as part of a Kidney transplant evaluation, is time sensitive, and should only be drawn during the evaluation visit at [address] Jossie King MD LAB MICROBIOLOGY - GENERAL ORDERABLES Final Result Performing Organization Address City/[facility]/ZIP Co de Phone Number [facility] [place] [address] * (ABNORMAL) Hemoglobin A1c (07/29/2024 11:01 AM HOME SECURITY ALARM INSTALLER) Pathologist [facility] Hgb A1C 9.0(H) 4.0 - 5.6 % Estimated Average Glucose 212 mg/dL [facility] Comment: The ADA recommends reporting an estimated Average Glucose (eAG) with all Hemoglobin A1c results using the equation derived from a study of 507 normal and diabetic adults. Minority populations were underrepresented and children were not included. (Diabetes Care 2020; 43(S1): S66-S76). The eAG is not equivalent to a fasting glucose. Blood 07/29/2024 11:0 1 AM HOME SECURITY ALARM INSTALLER 07/29/2024 11:34 AM HOME SECURITY ALARM INSTALLER [facility]ative [facility] - 07/29/2024 11:53 AM HOME SECURITY ALARM INSTALLER This lab is being obtained as part of a Kidney transplant evaluation, is time sensitive, and should only be drawn during the evaluation visit at [facility] Lab. Jossie King MD LAB BLOOD ORDERABL ES Final Result [facility] Department [place] [address] * (ABNORMAL) Lipid panel (07/29/2024 11:01 AM HOME SECURITY ALARM INSTALLER) Cholesterol 114 30 - 199 mg/dL Comment: [...] revised on 2018. Triglycerides 66 <=149 mg/dL [facility] Comment: Interpretive Data Ages < or = [...] on 2018. HDL 29(L) >=40 mg/dL [facility] Comment: Interpretive Data Ages < or [...] 2018. LDL, calculated 71 <=129 mg/dL [facility] Comment: Interpretive Data Ages < or [...] on 2024. Non-HDL Cholesterol 85 mg/dL [facility] Comment: Interpretive Data Ages < or [...] last revised on 2018. Chol/HDL ratio 4 [facility] Blood 07/29/2024 11:0 1 AM HOME SECURITY ALARM INSTALLER 07/29/2024 11:33 AM HOME SECURITY ALARM INSTALLER Narrative [facility] - 07/29/2024 12:10 PM HOME SECURITY ALARM INSTALLER This lab is being obtained as part of a Kidney transplant evaluation, is time sensitive, and should only be drawn during the evaluation visit at [facility] Lab. Jossie King MD LAB BLOOD ORDERABL ES Final Result [facility] Department [place] [address] * (ABNORMAL) TSH (10/27/2023 2:30 AM HOME SECURITY ALARM INSTALLER) [facility] Thyroid Stimulating Hormone 13.20(H) 0.30 - 4.20 mcIUnit/mL Blood 10/27/2023 2:30 AM HOME SECURITY ALARM INSTALLER 10/27/2023 2:42 AM HOME SECURITY ALARM INSTALLER Lorne Mcnulty MD LAB BLOOD ORDERABLES Final Result [facility] [address] Department [place] [address] from Last 3 Months or Most Recently Relevant to Health Maintenance Insurance [facility] MEDICARE ADVANTAGE ID[employer] U[employer] MEDICARE ADVANTAGE TRANSPLANT [employer] MEDICARE RISK [employer] TRANSPLANT [employer] MEDICARE RISK [employer] Advance Directives For more information, please contact: [phone] * Full Code (Latest Code Status on File) Date Activated Date Inactivated Comments 10/13/2023 11:32 PM 11/03/2023 11:42 PM * Full Code Date Activated Date Inactivated Comments 06/05/2022 6:17 AM 06/29/2022 6:20 PM * Full Code Date Activated Date Inactivated Comments 06/05/2022 4:43 AM 06/05/2022 4:43 AM * Full Code Date Activated Date Inactivated Comments 06/04/2022 9:55 PM 06/05/2022 4:43 AM Care Teams Implementation Technician Relationship Specialty Start Date End Date Aditya Castro MD [address] [facility] [place] [address] PCP - General 10/17/19 Alondra Lambert, RN [address] [address] Culinary Manager 03/06/24 Hamlet Ortega Jr., MD [address] [place] [address] Consulting Physician Cardiovascular Disease 05/10/24 Leandro Reyes MD [address] [facility] [address] [place] [address] Consulting Physician Nephrology 07/30/24
--- OUTSIDE RECORDS SUMMARY | 2025-03-06 17:41 | XMS_ITS ---
Author Organization [facility] Address [address] [place] [address] Care Team Providers Care Health And Physical Education Teacher Name Role Phone Aditya Castro MD Primary Care Provider [phone] Alondra Lambert RN Unavailable [phone] Shannon Brock MD, Hamlet P. Unavailable [phone] Leandro Reyes MD Unavailable [phone] Transplant Episode Kidney Candidate [facility] ([place], [place]) [facility] Evaluation began on 05/10/2024 Marked as Active on 05/10/2024 Reason: Evaluation - Standard Kidney CoordinatorAlondra Lambert RN Fax: N/A Email: N/A Scores Score Value Updated Exceptions/Reas ons CPRA Not available EPTS (Calc) 80 03/06/2025 Care Team Name Role Phone Fax Email Alondra Lambert RN Kidney Coordinator [phone] N/A N/A Melany Kelly Primary Cashier Supervisor N/A N/A N/A Chris Richard Food Service Sales Representatives N/A N/A N/A Events Pre-Transplant Referred: 03/06/2024 Evaluation began: 05/10/2024 Dialysis History Dialysis History Start End Type Comments Center 10/16/2019 Peritoneal [facility] Information Center Phone Fax Address [facility] [phone] [address] [facility] [address] [facility] [address]
--- OUTSIDE RECORDS SUMMARY | 2025-03-06 17:41 | XMS_ITS | Encounter Summary ---
Author Organization [facility] Address [address] [address] Phone Care Team Providers Care Crew Truck Driver Name Role Phone Unavailable Primary Care Provider Unavailabl e Reason for Visit * Reason Comments Med Refill Encounter Details Date Type Department Care Team (Late st Contact Info) Description 10/08/2019 Refill [facility] [address] [address] Leandro Reyes MD [address] [address] Social History Tobacco Use Types Packs/Day Years [...]
--- OUTSIDE RECORDS SUMMARY | 2025-03-06 17:41 | XMS_ITS | Clinical Summary ---
Author Organization [facility] Address [address] [address] Care Team Providers Care Pottery Striper Name Role Phone Aditya Castro Primary Care Provider Unavailab le Source Comments [facility],non-owned Affiliates and Associated Physician Practices is amultiple site organization consisting of ambulatory clinics and hospital sitesin [place], [place], [place] and [place]. This disclosure is being madepursuant to the Care Everywhere program and may not contain all information available regarding this patient. Last updated 18.[facility] Allergies Active Allergy Reactions Criticality Noted Date [...] 0.25 mcg by mouth once daily Active aspirin (ASPIRIN) 81 MG chew tablet Take 1 tablet by mouth once daily 9 Active carvedilol (COREG) 25 MG tablet Take 25 mg by mouth 2 times daily with morning and evening meal Active febuxostat (ULORIC) 40 MG tablet Take 40 mg by mouth 9 Active atorvastatin (LIPITOR) 40 MG tablet Take 40 mg by mouth at bedtime 9 Active cyclobenzaprin e (FLEXERIL) 10 MG tablet Take 10 mg by mouth every 12 hours as needed 9 Active vitamin D, ergocalciferol , (DRISDOL) 29018 units capsule Take 50,000 Units by mouth every 7 days 9 Active traMADol (ULTRAM) 50 MG tablet Take 50 mg by mouth every 8 hours as needed 9 Active TRUE METRIX BLOOD GLUCOSE TEST test strip 9 Active GLUCAGON EMERGENCY injection 9 Active selenium sulfide (SELSUN) 2.5 % lotionIndicati ons:Other seborrheic dermatitis APPLY TO FACE, LATHER AND RINSE OFF IN SHOWER AFTER 3 TO 5 MINUTES DIRECTED 120 mL 3 0 Active Additional Information Patient not taking.Reported on 02/03/2025 ezetimibe (Zetia) 10 MG tablet Take 1 (one) tablet by mouth once daily Active lidocaine (Lidoderm) 5 % patch Apply 1 (one) patch to skin as needed Active albuterol HFA (Proventil; Ventolin; Proair) 108 (90 Base) MCG/ACT inhaler Inhale 2 (two) puffs by mouth every 6 hours 5 Active amLODIPine (Norvasc) 10 MG tablet Take 1 (one) tablet by mouth once daily 4 Active calcium acetate (Phoslo) 667 MG capsule Take 1 (one) capsule by mouth 4 times daily after meals Active famotidine (Pepcid) 40 MG tablet Take 1 (one) tablet by mouth at bedtime 0 Active Vascepa 1 g capsule Take 1 (one) capsule by mouth 5 times daily 5 Active NovoLOG vial Inject 14 (fourteen) Units subcutaneously 3 times daily with meals And Sliding Scale Active Toujeo SoloStar pen Inject 50 (fifty) Units subcutaneously once daily Active levothyroxine (Synthroid) 25 MCG tablet Take 1 (one) tablet by mouth daily before breakfast 4 Active Linzess 72 MCG capsule Take 1 (one) capsule by mouth daily before breakfast 4 Active metoprolol succinate XL 24hr (Toprol XL) 100 MG tablet Take 1 (one) tablet by mouth once daily Active potassium chloride ER (K-TAB) 20 MEQ tablet Take 1 (one) tablet by mouth once daily 5 Active tamsulosin (Flomax) 0.4 MG capsule Take 1 (one) capsule by mouth once daily 4 Active warfarin (Coumadin) 3 MG tablet Take 1 (one) tablet by mouth once daily Active ketorolac (Toradol) 10 MG tablet Take 1 (one) tablet by mouth as needed for Pain Active gentamicin (Garamycin) 0.1 % topical ointment Apply to affected area 3 times daily Active Active Problems Problem Noted Date Diagnosed Date Pre-transplant evaluation for kidney transplant 03/24/2020 Overview (07/15/2020): Images from the original note were not included. Juvenal Garvin 1970 Referring Morgue Attendant: Leandro Reyes Dialysis Info: Type: PD Time: 160 days (11/05/2019) Blood Type: A Body mass index is 37.8 kg/m . ALERTS Province Archivist: Vashti Lizama NP Past Medical History: Diagnosis Date Anemia Arthritis Arthropathy osteo. back and knees see Dr. Cierra ELIAS (coronary artery disease) Community acquired pneumonia 2017 [facility] hospitalized with double pneumonia Congestive heart failure Coronary artery disease Diabetes mellitus type 1 teens dx when he was 13. Insulin since he was dx. Insulin pump currently with dexacom. Vashti Lizama DRAWER IN HAND is scorer single. DM (diabetes mellitus) TYPE 1 DVT (deep venous thrombosis) 2017 [facility] ESRD on peritoneal dialysis Gout History of blood transfusion 2017 during admission for LA HLD (hyperlipidemia) HTN (hypertension) Hypercholesteremia 5 years on med Hypertension 30's on medications. Kidney disease Myocardial infarction 2017 [facility]. Stent x1 placed. Neuropathy feet [...] file Gets together: Not on file Attends holiness service: Not on file Active member of [...] 07/02/2020: Committee Discussion Details: Pt brought to [facility] to discuss his cardiac workup. [...] It is the impression of this social services aide that Juvenal Garvin has several positive factors [...] advised of safety concerns regarding immunosuppressants. Plan: bottle line worker to provide supportive services as needed. Patient appears to be a reasonable candidate for transplant from a psychosocial perspective. -Post transplant arrangement forms are needed prior to being listed. Psychiatric Consult Recommended: No Transplant Private Branch Exchange Service Advisor: Radha Roper LCSW RD:05/14/2020 BMI= 40.0, Class III Obesity. Waist 53. Pt is considered to be a Marginal [...] ative heart with stable angina pectoris 11/22/2018 Encounters Date Type Department Care Team Description 02/03/2025 2:20 PM CDT Office Visit [facility] - Surgery [address] [place] [address], [address] [place] [phone] Abelardo Meyers MD Encounter regarding vascular access for dialysis for end-stage renal disease (HCC) (Primary Dx) 02/03/2025 2:08 PM CDT - 02/03/2025 11:59 PM CDT Hospital Encounter [facility] [address] [place] [address], [address] [place] [address] Abelardo Meyers MD Discharge Disposition: Home or Self Care 02/03/2025 Travel 01/30/2025 Orders Only [facility] Surgery [address] [place] [address], [address] [place] [phone] Bambi Camara, FIRST AID INSTRUCTOR-SKEIN YARN DYER HELPER ESRD (end stage renal disease) (HCC) from Last 3 Months Family History Medical History Relation Name Comments CAD (Coronary Artery Disease) Father Hyperlipidemia Father Hypertension Father Cancer - Lung Mother Asthma Neg Hx CVA Neg Hx Cancer - Breast Neg Hx Cancer - Other Neg Hx Cancer - Skin, Melanoma Neg Hx Cancer - Skin, Non Melanoma Neg Hx Eczema Neg Hx Hemophilia Neg Hx Psoriasis Neg Hx Relation Name Status Comments Brother 1 Alive Brother 2 Alive Daughter 1 Alive Daughter 2 Alive Father (Age 60's) Mother Sister Alive Son Alive Social History Tobacco Use Types Packs/Day Years Used Date Smoking Tobacco: Never Passive Smoke Exposure: Past Smokeless Tobacco: Never Tobacco Cessation:Counseling Given: Not Answered Alcohol Use Standard Drinks/Week Comments Not Currently 0 (1 standard drink = 0.6 oz pur e alcohol) 35 years ago Sex and Gender Information Value Date Recorded Sex Assigned at Not on file Legal 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 Gender Identity Not on file Sexual Orientation Not on file Last Filed Vital Signs Vital Sign Reading Time Taken Comments Blood Pressure 140/60 07/13/2020 1:30 PM READING TEACHER Pulse 65 07/13/2020 1:30 PM READING TEACHER Temperature 36.1 C (97 F) 07/13/2020 1:30 PM READING TEACHER Respiratory Rate 20 07/13/2020 1:30 PM READING TEACHER Oxygen Saturation 95% 07/13/2020 1:30 PM READING TEACHER Inhaled Oxygen Concentration - - Weight 113.9 kg (251 lb) 02/03/2025 2:17 PM CDT Height 177.8 cm (5' 10) 02/03/2025 2:17 PM CDT Body Mass Index 36.01 02/03/2025 2:17 PM CDT Plan of Treatment Upcoming Encounters Date Type Department Care Team (Latest Contact Info) Description 03/17/2025 7:20 AM CDT Hospital Encounter [facility] - Perioperative Surgery [address] [place] [address] [phone] Abelardo Meyers MD [address] [place] [phone] Surgery General 03/17/2025 7:20 AM CDT - 03/17/2025 8:43 AM CDT Surgery [facility] - Perioperative Surgery [address] [place] [id number] Abelardo Meyers MD [address] [place] [phone] LEFT UPPER ARM ARTERIOVENOUS FISTULA 03/17/2025 7:30 AM CDT Procedure visit [address] [phone] Abelardo Meyers MD [address] [place] [phone] 03/31/2025 10:20 AM CDT Office Visit [address] [phone] Abelardo Meyers MD [address] [place] [phone] Scheduled Procedures Name Priority Associated Diagnoses Date/Ti me CREATION ARTERIOVENOUS (AV) FISTULA DIRECT 03/17/2025 7:20 AM C DT Health Maintenance Due Date Last Done Comments COLOGUARD (AGES 45-75) - COLON CA SCREENING 1970 COLON MONITORING 1968 COLONOSCOPY - COLON CA SCREENING 1968 CT COLONOGRAPHY - COLON CA SCREENING 1970 Colorectal Cancer Screening 1968 FIT - COLON CA SCREENING 1968 FLEX SIG - COLON CA SCREENING 1968 DTAP/TDAP/TD VACCINES (1 - Tdap) 1987 PNEUMOCOCCAL VACCINE 50+ (1 of 2 - PCV) 1987 HEPATITIS B VACCINE (1 of 3 - Risk Dialysis 4-dose series) 1988 ZOSTER VACCINE (1 of 2) 2018 COVID-19 VACCINE (1 - season) 2024 DEPRESSION SCREENING 08/21/2024 MEDICARE AWV CALENDAR YEAR 2024 INFLUENZA VACCINE (#1) 2025 3, 07/19/2022, 06/04/2022, Additional history exists SCREENING FOR DIABETES 07/29/2027 4, 05/14/2020, 05/14/2020, Additional history exists HEPATITIS C SCREENING Completed 05/14/2020 HIV SCREENING [...] Name Priority Date/Time Associated Diagnosis Comments VAS BILAT MAPPING FOR HEMODIALYSIS Routine 02/03/2025 2:36 PM CDT ESRD (end stage renal disease) (HCC) COMPREHENSIVE METABOLIC PANEL Routine 05/14/2020 10:18 AM CDT Pre-transplant evaluation for kidney transplant HEPATITIS C ANTIBODY Routine 05/14/2020 10:18 AM CDT Pre-transplant evaluation for kidney transplant HIV-1 HIV-2 ANTIGEN/ANTIBODY Routine 05/14/2020 10:18 AM CDT Pre-transplant evaluation for kidney transplant from Last 3 Months or Most Recently Relevant to Health Maintenance Results * VAS Bilat Mapping for Hemodialysis (02/03/2025 2:36 PM CDT) Anatomical Region Laterality Modality Lower Extremity, Upper Extremity Ultrasound 02/03/2025 2:10 PM CDT Narrative Procedure Note Abelardo Meyers MD - 02/03/2025 [facility] [place] [address], [address] [place] [address] Vessel Mapping for Hemodialysis Report Pat.Name: JUVENAL GARVIN Pat.ID: [id number] St.Date: 02/03/2025 Refer.MD: SOWMYA DURAN Exam Time: 2:10:00 PM Study Type:Vessel Mapping for Hemodialysis Age: 10 1970,54Y Sex: MALE Sonogrphr: Shiva May RVT Pat. Stat.:Outpatient CPT - 4: 25351 Reason for Study: End Stage Renal Disease Procedures: Vessel Mapping for Hemodialysis Race: [facility] Visit ID: [id number] ++++++++++++++++++++++++++++++++++++ SUMMARY: ++++++++++++++++++++++++++++++++++++ Patent left cephalic vein for dialysis access. ++++++++++++++++++++++++++++++++++++ FINDINGS: ++++++++++++++++++++++++++++++++++++ Procedure: Duplex vein mapping was carried out in the left upper extremity. Study Quality: This study is of adequate technical quality. Mapping Lt: The left cephalic vein is not patent and compressible. The left basilic vein is patent and compressible. The left cephalic vein measured .67 cm at the antecubital fossa and .4 cm in the upper arm. The basilic vein at the antecubital fossa measured .32 cm. Signed 02/03/2025 04:09 PM Abelardo Meyers MD us Bambi Camara FIRST AID INSTRUCTOR-SKEIN YARN DYER HELPER VASCULAR LAB ORDERABLES E dited * HIV-1 HIV-2 ANTIGEN/ANTIBODY (05/14/2020 10:18 AM CDT) HIV Antigen/Antibod y 1 & 2 Non-reacti ve Non-react bianca 05/14/2020 11:49 AM T [facility] Comment:Neither HIV-1 p24 An tigen nor HIV-1/HIV-2 Antibodies are detected. Blood BLOOD SPECIMEN / Unknown Lab Venipuncture / Unknown 05/14/2020 10:18 AM CDT 05/14/2020 10:57 AM CDT Glenny Martin MD LAB - HEMATOLOGY ORDERA BLES Final Result [address] [phone], [facility] [phone] * (ABNORMAL) COMPREHENSIVE METABOLIC PANEL (05/14/2020 10:18 AM CDT) BUN 65(H) 7 - 26 mg/dL 05/14/2020 11:41 AM [facility] Creatinine 5.6(H) 0.6 - 1.2 mg/dL 05/14/2020 11:41 AM [facility] Sodium 142 136 - 145 mmol/L 05/14/2020 11:41 AM [facility] Potassium 3.7 3.5 - 4.5 mmol/L 05/14/2020 11:41 AM [facility] Chloride 101 98 - 107 mmol/L 05/14/2020 11:41 AM [facility] CO2 28 22 - 29 mmol/L 05/14/2020 11:41 AM [facility] Glucose 162(H) 70 - 115 mg/dL 05/14/2020 11:41 AM [facility] Calcium 9.0 8.4 - 10.2 mg/dL 05/14/2020 11:41 AM [facility] Protein Total 6.9 6.0 - 8.3 [...] 05/14/2020 10:18 AM CDT 05/14/2020 10:55 AM [facility] Glenny Martin MD LAB - CHEMISTRY ORDERAB LES Final Result Performing Organization Address City/State/[facility] Co de Phone Number [facility] [address] [place] [phone], [facility] [phone] * HEPATITIS C ANTIBODY (05/14/2020 10:18 AM CDT) Hepatitis C Antibody Non-react bianca Non-reac tive 05/14/2020 11:49 AM [facility] Comment:Hepatitis C Antibody screen indicates no [...] LAB - CHEMISTRY ORDERAB LES Final Result [facility] [address] [place] [address], [facility] [phone] from Last 3 Months or Most Recently Relevant to Health Maintenance Insurance MEDICARE MEDICAID - [place] AETNA MEDICARE ADV [facility] MANAGED MEDICARE ADV MEDICARE MEDICAID - OUT OF STATE AETNA MEDICARE [facility] MEDICAID [facility] [facility] [place] [facility] [place]ICA[facility] [place] MEDIC[place] AD[place] Advance Directives * Full Code (Latest Code Status on File) Date Activated Date Inactivated Comments 11/22/2018 9:24 AM 11/23/2018 7:55 PM Care Teams Pottery Striper Relationship Specialty Start Date End Date Aditya Castro Update Information PCP - General 03/06/19
--- OUTSIDE RECORDS SUMMARY | 2025-03-06 17:41 | XMS_ITS | Continuity of Care Document ---
Author Organization ID - [facility], [facility] Pulmonology [place] Address [facility] [address] Care Team Providers [employer] Name Role Phone ADITYA CATHERINE Primary Care Provider [phone] ADITYA CATHERINE Referring Provider ADITYA CATHERINE Primary Care Provider Assessment Encounter Date Assessment Date Assessment LastModified by Organization Details LastModified Time 03/06/2025 03/06/2025 Time spent with patient included: preparing to see patient by reviewing tests, obtaining and reviewing history, medical examination and evaluation, counseling and educating the patient, ordering medications and tests, documenting clinical information in EHR, independently interpreting results and communicating results to the patient for a total of 43 minutes. [email or web address] Not available 03/06/2025 11:19:01 Plan of Treatment Reminders Order Date Submit Date Provider Last Modified By Organization Details Last Modified Time Details Appointments Any 2024 09:30A M Milly Hidalgo NP Not available Not available Not available Any 2024 03:30P M Aditya Catherine MD Not available Not available Not available Establish ed Patient 2024 10:30A M Chris Linda DPM Not available Not available Not available Any 2024 01:00P M Milly Hidalgo NP Not available Not available Not available Lab None recorded. Referral None recorded. Procedures None recorded. Surgeries None recorded. Imaging None recorded. Medication Orders Symbicort 160 mcg-4.5 mcg/actua tion HFA aerosol inhaler 2024 025 [id number], [address], [place], [place], [id number], 03/06/2025 11:04:45 albuterol sulfate HFA 90 mcg/actua tion aerosol inhaler 2024 025 [facility] #[id number], [address] [facility] [address] [facility], [place], [place], [id number], 03/06/2025 11:04:41 Patient TargetsNo targets recorded. Patient InstructionsNo instructions recorded. Reason for Referral None Reported. Problems Name Problem SNOMED Code Status Onset Date Resolution Date Notes Provider Name and Address Organization Details Recorded Time Deep venous thrombosi s 156174260 Completed 201705/08/2018 Not Available [facility] 3 01:10:47 History of deep vein thrombosi s 906893725 Active 2017 Not Available [facility] 3 01:10:47 Myocardia l infarctio n 28516361 Completed 201705/08/2018 Not Available [facility] 3 01:10:48 Gastroeso phageal reflux disease without esophagit is 195697430 Active 2017 Not Available [facility] 3 01:10:48 Anemia 277136412 Active 2017 Not Available [facility] 3 01:10:48 Type 2 diabetes mellitus without complicat ion 770867342 Completed 201701/10/2019 Not Available [facility] 3 01:10:48 Hypertens bianca disorder 45488448 Active 2017 Not Available [facility] 3 01:10:49 Multiple benign melanocyt ic nevi 551150168 Active 2017 Not Available [facility] 3 01:10:50 Obesity 996480581 Active 2017 Not Available [facility] 3 01:10:50 Congestiv e heart failure 95474442 Active 2017 Not Available [facility] 3 01:10:50 Chronic kidney disease stage 4 522181266 Completed 201707/29/2020 Not Available [facility] 3 01:10:51 Atrial fibrillat ion 67227290 Active 2017 Not Available [facility] 3 01:10:52 Gout 84594116 Active 2017 Not Available [facility] 3 01:10:53 Chronic renal failure 10448494 Completed 201705/08/2018 Not Available [facility] 3 01:10:54 Vitamin D deficienc y 95122576 Active 2017 Not Available [facility] 3 01:10:49 Uncontrol led type 2 diabetes mellitus 242553633 Completed 201705/16/2019 Aditya Catherine MD [address] [place] [address], [address] [address], [place], [address] , [facility] [employer] [facility] 4 09:03:03 Hyperlipi demia 42230054 Active 2017 Not Available [facility] 3 01:10:52 Hyperchol esterolem ia 43635963 Active 2017 Not Available [facility] 3 01:10:47 Heartburn 59440559 Active 2017 Not Available [facility] 3 01:10:47 Dizziness 340010679 Active 2017 Not Available [facility] 3 01:10:50 Diabetic periphera l neuropath y 617902266 Active 2017 Not Available [facility] 3 01:10:51 Heart disease 36592518 Active 2017 Not Available [facility] 3 01:10:52 Diabetes mellitus 95309128 Active 2017 Not Available [facility] 3 01:10:52 Skin lesion 74248289 Active 2017 Not Available [facility] 3 01:10:54 Stable angina 186022983 Active 2017 Not Available [facility] 3 01:10:48 Seasonal allergic rhinitis 008280134 Active 2017 Not Available [facility] 3 01:10:49 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 753679846 Active 2017 Not Available [facility] 3 01:10:47 Pain in toe 038178826 Active 2018 Not Available [facility] 3 01:10:48 Pain in toe 917804436 Active 2018 Not Available [facility] 3 01:10:48 Dystrophi a unguium 77098739 Active 2018 Not Available [facility] 3 01:10:53 Degenerat ion of lumbar intervert ebral disc 51945624 Active 2018 Not Available [facility] 3 01:10:48 Type 1 diabetes mellitus 64199098 Active 2018 Not Available [facility] 3 01:10:52 Abrasion and/or friction burn of skin 303224244 Active 2018 Not Available [facility] 3 01:10:49 Chronic physical disabilit y 687970500 Active 2018 Not Available [facility] 3 01:10:47 Chronic low back pain 528113930 Active 2018 Not Available [facility] 3 01:10:48 Umbilical hernia 312757367 Active 2018 Not Available [facility] 3 01:10:49 Hyperpara thyroidis m 63325257 Active 2018 Not Available [facility] 3 01:10:52 Obstructi ve sleep apnea syndrome 95183515 Active 2018 Not Available [facility] 3 01:10:53 Corneal abrasion 53727236 Active 2018 Not Available [facility] 3 01:10:53 Chronic kidney disease stage 5 126719208 Active 2019 Not Available [facility] 3 01:10:51 Osteoarth ritis 845957900 Active 2019 Not Available [facility] 3 01:10:49 Atypical chest pain 056523530 Active 2019 Not Available [facility] 3 01:10:47 Ketoacido sis due to type 1 diabetes mellitus 139682292 Active 2019 Not Available [facility] 3 01:10:50 End-stage renal disease 57486136 Active 2019 Not Available [facility] 3 01:10:51 End stage renal failure on dialysis 770420870 Active 2019 Not Available [facility] 3 01:10:48 Pain in left foot 51251554563 9107 Active 2019 Not Available [facility] 3 01:10:48 Ultrasoun d scan abnormal 527205011 Active 2020 Not Available [facility] 3 01:10:47 Right upper quadrant pain 579264047 Active 2020 Not Available [facility] 3 01:10:48 Chronic idiopathi c constipat ion 85460322 Active 2020 Not Available [facility] 3 01:10:53 Periphera l venous insuffici ency 53456172 Active 2020 Not Available [facility] 3 01:10:47 Chronic sinusitis 42422819 Active 2021 Not Available [facility] 3 01:10:49 Deviated nasal septum 142461770 Active 2021 Not Available [facility] 3 01:10:47 Hypertrop hy of nasal turbinate s 68620435 Active 2021 Not Available [facility] 3 01:10:47 Nasal congestio n 83470856 Active 2021 Not Available [facility] 3 01:10:52 Plantar fasciitis of right foot 17140725701 520924 Active 2021 Not Available [facility] 3 01:10:47 Nausea 292056325 Active 2021 Not Available [facility] 3 01:10:50 Gastritis 3574546 Active 2021 Not Available [facility] 3 01:10:51 Epigastri c pain 77311587 Active 06/07/ 2022 Not Available [facility] 3 01:10:53 Sensorine ural hearing loss of bilateral ears 646930139 Active 2021 Not Available [facility] 3 01:10:47 Dysphagia 70001381 Active 2021 Not Available [facility] 3 01:10:50 Asymmetri nikos hearing loss 214616053 Active 2021 Not Available [facility] 3 01:10:51 Sinusitis 02833231 Active 2021 Not Available [facility] 3 01:10:49 Vertigo 374835500 Active 2021 Not Available [facility] 3 01:10:49 Deep venous thrombosi s of lower extremity 594992905 Active 2022 Not Available [facility] 3 01:10:50 Chronic back pain 179652464 Active 2022 Not Available [facility] 3 01:10:47 Seborrhei c dermatiti s of scalp 948544700 Active 2022 Not Available [facility] 3 01:10:47 Hypertrig lyceridem ia 224741934 Active 2022 Aditya Catherine MD [address], [place], [address] , [employer] 3 16:04:08 Chronic constipat ion 828199078 Active 2022 Aditya Catherine MD [address], [place], [address] , [employer] [facility] 3 16:45:46 Cough 53277705 Active 2022 Aditya Catherine MD [address], [place], [address] , [employer] [facility] 3 12:45:44 Bronchiti s 52582936 Active 2022 Aditya Catherine MD [address], [place], [address] , [employer] [facility] 3 09:22:50 Allergic rhinitis 11995263 Active 2022 Aditya Catherine MD [address], [place], [address] , [facility] 3 09:28:39 Allergic contact dermatiti s 243638038 Active 2022 Aditya Catherine MD [address], [address], [place], [address] , [facility] 3 16:06:02 Tinea cruris 507200489 Active 2022 Aditya Catherine MD [address], [address], [place], [address] , [facility] 3 16:06:15 Acute bacterial sinusitis 42612115 Active 2023 KATIE Chen [address], [address], [place], [address] , [facility] 4 09:55:25 Ulcer of mouth 42334047 Active 2023 Aditya Catherine MD [address], [address], [place], [address] , [facility] 4 09:03:52 Onychomyc osis of toenails 059404227 Active 2023 Chris Linda DPM [address], [address], [place], [address] , [facility] 4 12:24:55 Folliculi tis 09179044 Active 2023 Aditya Catherine MD [address], [address], [place], [address] , [facility] 4 10:26:36 Pain of right knee joint 91893702774 4100 Active 2023 Aditya Catherine MD [address], [address], [place], [address] , [facility] 4 10:31:07 Bleeding of ear canal 068376804 Active 2023 Aditya Catherine MD [address], [address] [address], [place], [address] , [facility] 4 10:40:38 Acute left otitis media 963332669 Active 2023 Rohit Jessica MD [address], [address] [address], [place], [address] , [facility] 4 16:04:39 Thoracic back pain 124807920 Active 2023 Aditya Catherine MD [address] [address], [place], [address] , [facility] 4 16:28:59 Pain of right shoulder blade 748930614 Active 2023 Aditya Catherine MD [address] [address], [place], [address] , [facility] 4 16:30:04 Degenerat ion of thoracolu ar intervert ebral disc 04249159 Active 2023 Aditya Catherine MD [address], [address] [address], [place], [address] , [facility] 4 16:30:54 Hypothyro idism 52329583 Active 2023 Aditya Catherine MD [address] [address], [place], [address] , [facility] 4 16:34:29 Uncontrol led type 2 diabetes mellitus 271807976 Active 2023 Aditya Catherine MD [address], [address] [address], [place], [address] , [facility] 4 09:03:03 Bilateral osteoarth ritis of knees 99129988356 9107 Active 2023 Sofia agosto, [facility] 4 11:42:16 Pain of left knee joint 46505078718 4107 Active 2023 LESLY Gambino [address], [place], [address] , [place] [facility] 4 13:42:14 Pain of right hip joint 65884412767 9102 Active 2023 Lisa Lopez CNA null, [place] [facility] 4 11:11:43 Trochante margarita bursitis of right hip 27604666430 9100 Active 2023 LESLY Gambino [address], [address], [place], [address] , [place] [facility] 4 12:00:40 Gallstone 491104290 Active 2023 Aditya Catherine MD [address], [address], [place], [address] , [place] [facility] 4 11:21:33 Right flank pain 567321357 Active 2023 Aditya Catherine MD [address], [address], [place], [address] , [place] [facility] 4 11:29:38 Kidney stone 31156095 Active 2023 Aditya Catherine MD [address], [address], [place], [address] , [place] [facility] 4 11:31:01 Pleural effusion 60223892 Active 2024 Aditya Catherine MD [address], [address], [place], [address] , [place] [facility] 5 11:40:43 Dyspnea on exertion 21668178 Active 2024 Milly Hidalgo NP [address], [address], [place], [address] , [place] [facility] 5 11:13:03 Multiple nodules of lung 594924478 Active 2024 Milly Hidalgo NP [address], [address], [place], [address] , [employer] 5 11:31:08 Environme ntal allergy 050437867 Active 2024 Milly Hidalgo NP [address], [address], [place], [address] , [facility] 5 12:39:05 Chronic obstructi ve pulmonary disease 11152756 Active 2024 Milly Hidalgo NP [address], [place], [address] , [facility] 5 11:55:04 Persisten t atrial fibrillat ion 217271797 Active 2024 Milly Hidalgo NP [address], [place], [address] , [facility] 5 14:16:49 Eruption of skin of penis Active 2024 Aditya Catherine MD [address], [place], [address] , [facility] 5 15:08:12 Superfici al folliculi tis 137708024 Active 2024 Aditya Catherine MD [address], [place], [address] , [employer] [facility] 5 15:08:33 Benign hypertens ion 76649205 Active 2024 Aditya Catherine MD [address] [employer], [address], [place], [address] , [facility] 5 11:06:44 Hang nail 3365618 Active 2024 Stephie Herron NP [address], [place], [address] , [employer] 5 11:45:19 Hematoma 992546191 Active 2024 Stephie Herron NP [address] [employer], [address], [place], [address] , [facility] [employer] [facility] [employer] [facility] 11:49:04 Blood in urine 77468566 Active 2024 Stephie Herron NP [address], [address], [place], [address] , [facility] [employer] [facility] [employer] [facility] 11:51:26 Notes:blood clots, coronary artery disease, head trauma or injury, kidney disease, seizures, use of blood thinners, balance problems, numbness or tingling, loss of memory, swelling in legs, shortness of breath, muscle pain, back/neck pain, swollen or painful joints, excessive thirst, dry mouth, sleep apnea, wears glasses Some problems listed in Document: #[id number] could not be added to this patient's chart. Please review this document and add these problems to the patient's chart manually as needed. Problem Notes None recorded. Procedures Surgical History Date Name Laterality Status Provider Name and Address Organization Details Recorded Time 05/02/20 24 Nail Debridement completed Chris Linda DPM [address], [place], [address], [facility] [employer] [facility] [employer] [facility] 05/20/2024 09:31:13 03/11/20 24 Nail Debridement completed Chris Linda DPM [address], [place], [address], [facility] [employer] [facility] [employer] [facility] 03/11/2024 12:35:50 03/11/20 24 Wound Care-Podiatry completed Chris Linda DPM [address], [place], [address], [facility] [employer] [facility] [employer] [facility] 03/11/2024 12:34:57 01/08/20 24 Wound Care-Podiatry completed Chris Linda DPM [address], [place], [address], [facility] [employer] [facility] [employer] [facility] 01/08/2024 12:26:31 12/25/19 24 Medicare Wellness CPT Code, subsequent completed Beth Willis RN [facility] [employer] [facility] 12/25/2023 15:24:37 11/06/19 24 Medicare Wellness CPT Code, subsequent cancelled November LUAN Willis [facility] 11/03/2023 10:10:00 01/08/20 22 SEPTOPLASTY (SURG) completed Not Available [facility] 10/19/2022 01:16:48 01/22/20 21 Cardiac Cath completed Not Available [facility] 023 01:06:21 reduction of nasal turbinate completed Not Available [facility] 10/19/2022 01:06:21 procedure on heart completed Lisa Lopez CNA [facility] [employer] [facility] 05/10/2024 11:11:45 Imaging Results None recorded. Procedure Notes None recorded. Medical Equipment None Reported. Allergies Allergen ID Allergen Name Allergen Category Reaction Reaction Severity Criticality Documentation Date Start Date Code Code System Note Provider Name and Address Organization Details Recorded Time 1834 Iodinated contrast media (substanc e) medicatio n rash severe Not available 10/19/2022 29519 2004 SNOMED Not Available [facility] 3 01:16:23 1835 Brilinta medicatio n rash severe Not available 10/19/2022 62586 36 RxNorm Not Available [facility] 3 01:16:23 1836 allopurin ol medicatio n other severe Not available 10/19/2022 519 RxNorm Not Available [facility] 3 01:16:23 Medications Name Sig Start [...] t Available atorvasta tin 80 mg tablet TAKE 1 TABLET BY MOUTH [...] oral route as directed for 7 days. 12/23 completed Not Available Not Available Not Available doxycycli ne hyclate 100 mg capsule 04/24 completed Not Available Not Available Not Available atorvasta tin 20 mg tablet TAKE 1 TABLET BY MOUTH AT BEDTIME WITH 40MG TABLET TO EQUAL 60 MG DAILY active Not Available Not Available No t Available ketoconaz ole 2 % shampoo APPLY TOPICALL Y 2 TIMES EVERY WEEK NEEDED 12/23 completed Not Available Not Available Not Available tizanidin e 2 mg tablet 10/31 completed [...] EVERY 8 HOURS FOR 7 DAYS NEEDED 12/23 completed Not Available Not Available Not Available metoprolo l succinate ER 50 mg tablet,ex tended release 24 hr 12/[address] Shannon jamison Not Available Not Available [...] Take 20 mg by injectio n route. 12/23 completed Not Available Not Available Not Available prednison e 20 mg tablet 03/08 completed [...] Available Not Available metoprolo l succinate ER 100 mg tablet,ex tended release 24 hr Take 1 tablet every day by oral route as directed for 90 days. 2024 active Not Available Not Available Not Avai lable Generlac 10 gram/15 mL oral solution active [...] Not Available valacyclo vir 500 mg tablet 12/[address] Joshua kirk es Not Available Not [...] 50 mg tablet Take 1 tablet every 12 hours by oral route as needed for 10 days. 2024 active Not Available Not Available Not Avai lable phentermi ne 30 mg capsule Take 1 [...] completed Not Available Not Available Not Available Serevent Diskus 50 mcg/dose powder for inhalatio n Inhale 1 puff twice a day by inhalati on route. 2024 active Not Available Not Available Not Avai lable prednison e 10 mg tablets in a [...] oral route as directed for 30 days. 12/25 completed Not Available Not Available Not Available furosemid e 80 mg tablet 09/06 completed Not Available Not Available Not Available Humalog U-100 Insulin 100 unit/mL subcutane ous solution 12/25 completed Not Available Not Available Not Available Kenalog 10 mg/mL suspensio n for injection Take 20 mg by injectio n route. 12/[address] [facility]: [id number] 12-08 Not Available Not Available Not [...] Not Available cephalexi n 500 mg capsule Take 1 capsule 3 times a day by oral route as directed for 7 days. 2024 active Not Available Not Available Not Avai lable hydralazi ne 100 mg tablet TAKE 1 TABLET BY MOUTH EVERY 8 HOURS DIRECTED 07/13 completed Not Available Not Available Not Available erythromy socorro 5 mg/gram (0.5 %) eye ointment 12/[address] Joshua kirk es Not Available Not Available Not Available clotrimaz ole-betam ethasone 1 %-0.05 % topical cream APPLY TO THE AFFECTED AND SURROUND ING AREAS OF SKIN BY TOPICAL ROUTE 2 TIMES PER DAY IN THE MORNING AND EVENING FOR 2 WEEKS 02/26 completed Not Available Not Available Not Available warfarin 2 mg tablet Take 1 tablet every day by oral route. 2024 active Not Available Not Available Not Avai lable fluoromet holone 0.1 % eye drops,[employer] pension 10/31 completed Not Available Not Available Not Available lidocaine 5 % topical patch APPLY 1 PATCH TOPICALL Y TO THE SKIN EVERY DAY. MAY WEAR UP TO 12 HOURS 2024 active Not Available Not Available Not Avai lable losartan 25 mg tablet 12/06 completed Not Available Not Available Not Available [employer]ML Forte 0.25 % eye drops,[facility] pension 12/25 completed Not Available Not Available Not Available [...] BY TOPICAL ROUTE 3 TIMES PER DAY 12/25 completed Not Available Not Available Not Available Procrit 20,000 unit/mL injection solution 05/16 [...] BY TOPICAL ROUTE 3 TIMES PER DAY 2024 active Not Available Not Available Not Avai lable metoprolo l succinate ER 25 mg tablet,ex tended release 24 hr 12/25 completed Not Available Not Available Not Available ergocalci [...] AREA(S) toenails BY TOPICAL ROUTE ONCE DAILY 12/23 completed Not Available Not Available Not Available ondansetr on 4 mg disintegr ating [...] oral route as directed for 10 days. 12/23 completed Not Available Not Available Not [...] % eye drops in a dropperet te 12/[address] Joshua jamison Not Available Not Available [...] completed Not Available Not Available Not Available Lili B EnterprisesTouch Ultra2 Meter kit 04/25 completed Not Available Not Available Not Available BD Ultra-Fin e Original Pen Needle 29 gauge x 1/2 01/07 completed Not Available Not Available Not Available Humira Pen 40 mg/0.8 mL subcutane ous kit 04/24 completed Not Available Not Available Not Available budesonid e-formote rol HFA 160 mcg-4.5 mcg/actua tion aerosol inhaler INHALE 2 PUFFS BY MOUTH TWICE DAILY active Not Available Not Available No t Available cholecalc iferol (vitamin D3) 1,250 mcg [...] strips TEST 4 TO 6 TIMES D 12/23 completed Not Available Not Available Not Available lidocaine 5 % topical ointment APPLY [...] Available Not Available Dexcom G6 Transmitt er 12/[address] Rios Not Available Not Available Not Available Dexcom G6 Sensor 12/[address] Rios Not Available Not Available Not Available Omnipod Dash Pods (Gen 4) subcutane ous cartridge 01/07 completed Not Available Not Available Not Available OneTouch Delica Plus Lancet 33 gauge 01/07 completed Not Available Not Available Not Available G[employer]oke HypoPen 2-Pack 1 mg/0.2 mL subcutane ous auto-inje ctor active Dr. Gabriel jamison Not Available Not Available Not Available aspirin 81 mg capsule Take 1 capsule every day by oral route. active Not Available Not Available No t Available Omnipod 5 G6 Pods (Gen 5) subcutane ous cartridge 12/23 completed Not Available Not Available Not Available Omnipod 5 G6 Intro Kit (Gen 5) subcutane ous cartridge with controlle r 05/10 completed Not Available Not Available Not Available Vitals Date Recorded Body height Body mass index (BMI) Body weight Body temperature Heart rate Oxygen saturation Oxygen saturation in Arterial blood by Pulse oximetry Systolic And Diastolic Provider Name and Address Organization Details Last Updated DateTime 5 177.8 cm 36.7 kg/m2 191868. 65 g 99 [degF] 87 /min 93 % 93 % 104/62 mm[Hg] RUBEN Moraes - Jerardo Cognea 5 10:42:06 Social History Question Answer Notes LastModified by Organizat ion Details LastModified Time Tobacco Smoking Status Never Smoker Not Available [employer] 10/19/2022 01:04:37 Do You Have An Advance Directive? No MIGRATION.[id number] [id number] Information not available 10/19/2022 Are You Blind Or Do You Have Difficulty Seeing? No MIGRATION.84321 71709 Information not available 10/19/2022 Is Blood Transfusion Acceptable In An Emergency? Yes Information not available 12/07/2023 What Is Your Level Of Caffeine Consumption? Occasional MIGRATION.93148 95040 Information not available 10/19/2022 How Much Tobacco Do You Chew? None MIGRATION.78041 65657 Information not available 10/19/2022 What Is Your Code Status? Full Code Information not available 12/07/2023 In The 14 Days Before Symptom Onset, Have You Had Close Contact With A Laboratory-confi rmed COVID-19 While That Case Was Ill? No MIGRATION.74805 13375 Information not available 10/19/2022 In The 14 Days Before Symptom Onset, Have You Had Close Contact With A Person Who Is Under Investigation For COVID-19 While That Person Was Ill? No MIGRATION.30735 19238 Information not available 10/19/2022 Are You Deaf Or Do You Have Serious Difficulty Hearing? No MIGRATION.98594 15235 Information not available 10/19/2022 What Type Of Diet Are You Following? CARDIAC And Renal MIGRATION.47830 06660 Information not available 10/19/2022 Which Illicit Or Recreational Drugs Have You Used? NONE MIGRATION.40660 72914 Information not available 10/19/2022 What Is The Highest Grade Or Level Of School You Have Completed Or The Highest Degree You Have Received? [id number] 2 Years MIGRATION.61191 02084 Information not available 10/19/2022 Do You Have An Electrostatic Air Filter? No Information not available 10/31/2024 Have There Been Any Changes To Your Family Or Social Situation? No Information not available 12/07/2023 Are There Any Guns Present In Your Home? No MIGRATION.87621 32530 Information not available 10/19/2022 Do You Have A Humidifier? No Information not available 10/31/2024 Do You Use Insect Repellent Routinely? No Information not available 12/07/2023 Where Do You Live? SingleLevelHouse Information not available 12/07/2023 Advance Directive- Providers Has Reviewed Directive And Consents To Follow Them (insert Provider Name With Any Objectives In Notes Field) No MIGRATION.01054 54171 Information not available 10/19/2022 Presence Of Domestic [...] Do You Have A Medical Power Of Timber Trimmer? No Information not available 12/07/2023 Do You Have Moisture Problems In Your Home? No Information not available 10/31/2024 What Was The Date Of Your Most Recent Tobacco Screening? 03/06/2025 Information not available 03/06/2025 Do You Have Any Pets? Yes Information not available 12/07/2023 What Is Your Relationship Status? Single MIGRATION.63935 52182 Information not available 10/19/2022 Do You Use Your Seat Belt Or Car Seat Routinely? Yes MIGRATION.24704 22312 Information not available 10/19/2022 Do You Have Smoke And Carbon Monoxide Detectors In Your Home? Yes Information not available 12/07/2023 Are You Passively Exposed To Smoke? No Information not available 12/07/2023 Are There Any Smokers In Your House? No Information not available 12/07/2023 Do You Use Sunscreen Routinely? No Information not available 12/07/2023 Have You Recently Traveled Abroad? No MIGRATION.73796 90710 Information not available 10/19/2022 Do You Have Difficulty Walking Or Climbing Stairs? No MIGRATION.93496 77566 Information not available 10/19/2022 Are You Currently In School? No MIGRATION.62743 05796 Information not available 10/19/2022 Sex: Unknown Functional Status Question Answer Note LastModified by [employer] ion Details LastModified Time Do you use any illicit or recreational drugs? No Information not available 03/06/2025 Do you or have you ever used any other forms of tobacco or nicotine? No Information not available 03/06/2025 What is your level of alcohol consumption? None MIGRATION.881843 0617 Information not available 10/19/2022 Do you or have you ever used smokeless tobacco? Never used smokeless tobacco MIGRATION.508605 7303 Information not available 10/19/2022 Have you been exposed to chemicals or toxins? not that aware of Information not available 10/31/2024 Do you have difficulty doing errands alone? No MIGRATION.182122 7241 Information not available 10/19/2022 What is your occupation? DISABLED MIGRATION.194657 0819 Information not available 10/19/2022 Do you have difficulty dressing or bathing? No MIGRATION.222220 9382 Information not available 10/19/2022 Do you or have you ever used e-cigarettes or vape? Never used electronic cigarettes MIGRATION.373748 7650 Information not available 10/19/2022 What is your exercise level? Occasional MIGRATION.674311 6870 Information not available 10/19/2022 Mental Status Question Answer Note LastModified by Organizat ion Details LastModified Time Do you feel stressed (tense, restless, nervous, or anxious, or unable to sleep at night)? KB7377-5 MIGRATION.93892854 26 Information not available 10/19/2022 Do you have difficulty concentrating, remembering or making decisions? No MIGRATION.87524669 26 Information not available 10/19/2022 Family History Relationship Description Onset Age of this Age Resolved Age Notes LastModified by Organization Details LastModified Time Father Heart disease [id number] Not available 10/19/2022 01:06:25 Father Hypertensive disorder MIGRATION.[id number] Not available 10/19/2022 01:06:25 Notes:cancer-mother NO ENT H ISTORY Medical History Condition Response SLEEP APNEA N MRSA N ALLERGIES/HAYFEVER Y HEART ARRHYTHMIA Y LUNG DISEASE/DISORDER N HISTORY OF DRUG ABUSE N INSOMNIA N RADIATION / CHEMOTHERAPY N COPD N HIGH CHOLESTEROL / HYPERLIPIDEMIA Y HYPERTHYROIDISM N BLOOD DISEASES N EAR OR HEARING PROBLEMS N HYPOTHYROIDISM N SHINGLES N DEPRESSION (INCLUDING POST ) N HAVE YOU BEEN HOSPITALIZED OR SEEN IN [facility] IN THE PAST YEAR ? Y STROKE/TIA N ULCERS N OBESITY Y GERD/NAUSEA Y ANEURYSM N HISTORY WITH COMPLICATIONS WITH ANESTHES IA ? N Do you have Advance directive? N ARTHRITIS Y USE OF BLOOD THINNERS Y NO SIGNIFICANT PAST MEDICAL HISTORY Y SKIN PROBLEMS Y DIABETES, TYPE Y PARATHYROID DISEASE N ENT N SEASONAL ALLERGIES N HEARTBURN / REFLUX N BLOOD CLOTS Y HEPATITIS / LIVER DISEASE N ASTHMA Y GOUT Y SLEEP DISORDER N PAIN Y SEIZURES/EPILEPSY N [...] virus, quadrivalent, PF 3 completed BERNARDO Reddy Cognea 07/03/2023 11:25:39 pneumococcal polysaccharide PPV23 0 completed Not Available [facility] 10/19/2022 01:16:16 Tdap 0 completed Not [...] SNOMED-CT Code Diagnosis ICD10 Code Diagnosis Note [id number] Stephie Herron NP [facility] [address] [address] 02/26/2025 10:59:00 02/26/2025 12:02:01 Atrial fibrillation 72678662 I48.91 takes warfarin, changed to lovenox in anticipati on of colonoscop y, but procedure was postponed and he resumed warfarin, most recent INR was 8 and he could not reach the cardiologi stpaused warfarin and ate greens and [facility], due to check today at home, he does inr at homeobtain inr and call me back Bilateral osteoarthritis of knees [id number] 37264 M17.0 knees are bruised with superficia l laceration s (road rash), very sorewill address pain meds and watch and wait, may take 6-8 weeks to feel better, hx of severe arthritis already affection mobilityen courage to use walker not cane for stability 2/2 to increasing number of falls Hang nail 1979780 L03.01 1 local soap and water to digitapply ointmentif worsening call backtrying to avoid oral antibx that will affect warfarin Hematoma [id number] T14.8 XXA 5 x 3 cm hematoma and bruising to the left flank from previous fallwill monitory closely for signs of infections ee dr catherine in one month for follow up of hematomato ER if signs of infection or worsening hematoma Blood in urine 69873415 R31.9 discussed blood in urine may be related to elevated INR as well as ckdnot currently worseningi f worsening it truly becomes emergency and go to ER [id number] Milly Hidalgo NP [facility] [place] [address] [facility] [address] [place] [address] 03/06/2025 10:24:11 03/06/2025 13:12:29 Chronic obstructive pulmonary disease [id number] J44.9 Do to increased sob and PFT which notes moderate COPD with significan t gas exchange impairment will do script for Symbicort- Stop SereventPF T: pre-FEV1 2.57, 69%, FVC3.23 L 67%, FEV1/FVC ratio is 80% normal: post FEV1 2.47, 66%, -4%, FVC is 3.11, 65%, 4%, FEV1/FVC ratio is 79% 2.89 l, 134%TLC 6.12, 87% normal, residual 2.89L, 134%. RV/TLC 47% (elevated consistent with air trapping), FRC 3.86L, 107%, normalDLCO -10.5, 36% (severely reduced0, JOSEPH/VA 2.60, 59%Finding s: mild ventilator y impairment with decreased EV1 and FVC with preserved ratio, mild air trapping, no response with bronchodil ator, which shows obstructiv e process, severe diffusion impairment GET lab work ordered from last visitCAT-2 8Mmrc-3Use Albuterol inhaler as neededNo EOS from 2023-will have him do rest of lab workCT utd-[facility] to maintain vaccines when dueF/u with PMD for any new labsF/u with me in 4 months- use-will call if needs Albuterol (has some at home)Aware to call if any changes in symptoms or increase in use of Albuterol- severe symptoms ER Health Concerns Section Related Observation LastModified by Organization Detai ls LastModified Time None Recorded Concern Status LastModified by Organization Details LastModified Time None Recorded Payers Encounter Date Sequence Insurance Name Policy Number Policy Ge Covered Member ID Ge Member ID Guarantor Name 03/06/2025 2 [place] WHEN MEDICARE OR MEDICARE REPLACEMENT PRIMARY) Juvenal Daigle [id number] Juvenal Daigle Jr 03/06/2025 1 [facility] (MEDICARE REPLACEMENT/AD VANTAGE - PPO) [id number] Juvenal Daigle [id number] Juvenal Daigle Jr Notes Date Note Type Note Provider Name and Address Organization Details Recorded Time 03/06/2025 text/html COPDReported bypatient.Severity :moderate Onset/Timing:inter mittent Modifying Factors:worse with exertion Associated Symptoms:no snoring; no excessive daytime sleepiness; no arousals from sleep; no decrease in exercise capacity; no coughing up sputum; no cough; no fever; no wheezing; no weight loss; no depression;dyspnea exertional;decreas e in exercise capacity;fatigueNo canelo:notes the past month has had increased episodes of feeling tightness and more sob with exertion-he notes he was not sure if he could use his rescue inhaler-this occurs about 2-3 times a week. He notes his afib has been better controlled and doesn't feel that is the cause.He is still using his BiPap Milly Hidalgo NP [address] [facility] [facility] [address], [place], [address], [place] [facility] 03/06/2025 11:19:56
--- OUTSIDE RECORDS SUMMARY | 2025-03-06 17:41 | XMS_ITS ---
Author Organization [facility] Address [address] [place] [address] Care Team Providers Care Harness Fitter Name Role Phone Aditya Castro MD Primary Care Provider [phone] Alondra Lambert RN Unavailable Shannon Brock MD, [place] P. Unavailable Leandro Reyes MD Unavailable [phone] Dialysis Access Sites Type Status Location Placement Date Removal Da te Peritoneal Dialysis Catheter Continuous cycling Active Hemodialysis Cath Double Inactive Right N emiliano (side) - Anterior 06/18/2022 06/25/2022 Hemodialysis Cath Triple Inactive Neck - Anterior 202106/16/2022 Procedures Procedure Name Priority Date/Time Associated Diagnosis Comments HEPATITIS C ANTIBODY Routine 07/29/2024 11:01 AM [facility] End stage renal disease (HCC) EGFR Routine 07/29/2024 11:01 AM [employer] End stage renal disease (HCC) HEMOGLOBIN A1C Routine 07/29/2024 11:01 AM [facility] End stage renal disease (HCC) LIPID PANEL Routine 07/29/2024 11:01 AM [facility] End stage renal disease (HCC) PSA SCREEN Routine 07/29/2024 11:01 AM [employer] End stage renal disease (HCC) TSH Routine 10/27/2023 2:30 AM [employer] SALESPERSON from Last 3 Months or Most [...] PUMP: Continue Omnipod 5 insulin pump with [employer] G6 CGM at home settings: TIME BASAL [...] 1 tablet (25 mcg total) by mouth computer numerical control operator before breakfast 30 tablet 1 11/04/19 [...] mg SL tablet 12/28/19 18 Active peg 649-agfcfmxeoddb-ni ycerin (ARTIFICAL TEARS) 1-0.2-0.2 % ophthalmic solution 1 drop 4 (four) times a day 07/07/20 22 Active potassium chloride ER 20 mEq CR tablet Active Active Problems Problem Noted Date Diagnosed Date End stage renal disease 07/29/2024 Nonrheumatic aortic valve stenosis 11/22/2023 Status post aortic valve replacement 11/22/2023 Status post coronary artery bypass grafting 10/2023 CAD in tunica-biloxi artery 10/13/2023 Anemia 06/22/2022 Assessment & Plan (06/29/2022 10:12 AM [employer] SALESPERSON): Stable, likely 2/2 anemia from ESRD, [...] 06/22/2022 Assessment & Plan (06/29/2022 10:12 AM MEDI[employer] CY[employer] SALESPERSON): - Renal consulted, s/p CRRT in the ICU now back on PD. Tolerated well and nephrology following - Trialysis catheter removed - Continue vitamins for renal bone mineral disease. Assessment & Plan (06/28/2022 3:29 PM MEDIUM CYCLE SALESPERSON): - Renal consulted, s/p CRRT in [...] 06/22/2022 Assessment & Plan (06/29/2022 10:12 AM MEDIUM CYCLE SALESPERSON): C/b cardiogenic shock requiring impella in the setting of cath and AHRF 2/2 pulmonary edema, now resolved. TTE demonstrating recovered EF 65% with grade I diastolic dysfunction. - metop as above - continue low dose losartan 12.5mg daily, ok per nephro. Tolerating well - volume management per PD Assessment & Plan (06/28/2022 3:29 PM MEDIUM CYCLE SALESPERSON): C/b cardiogenic shock requiring impella in [...] 06/22/2022 Assessment & Plan (06/29/2022 10:12 AM MEDI[employer] CY[employer] SALESPERSON): Converted to NSR overnight on 06/24. CHADsVASc of 4 not on anticoagulation prior to admission. - cardiology consulted - recommended ongoing rate control - holding off on a/c with high risk for bleeding while on DAPT - reduced metop to 25mg BID in the setting of hypotension, HR 70s NSR Assessment & Plan (06/28/2022 3:30 PM [employer] CY[employer] SALESPERSON): Converted to NSR overnight on 06/24. [...] 08/22/2021 Assessment & Plan (06/29/2022 10:11 AM [employer] CY[employer] SALESPERSON): With recurrent chest pain post-cath. He [...] today Assessment & Plan (06/28/2022 3:30 PM MEDIUM CY[employer] SALESPERSON): With recurrent chest pain post-cath. He [...] 06/22/2022 Assessment & Plan (06/29/2022 10:11 AM MEDI[employer] CY[employer] SALESPERSON): Secondary to NSTEMI, s/p Impella since removed on 06/10. Resolved. Assessment & Plan (06/23/2022 4:55 PM CDT): Secondary to NSTEMI, s/p Impella since removed on 06/10. Resolved. Assessment & Plan (06/22/2022 8:22 PM CDT): -Secondary to NSTEMI, s/p Impella since removed on 06/10. 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 He [...] session Assessment & Plan (06/28/2022 3:28 PM MEDIUM CY[employer] SALESPERSON): A1c well controlled on admission. He [...] from doctor or pharmacy Never 12/01/2023 [facility] Utilities Answer Date Recorded In [...] week 08/01/2024 How often do you attend pentecostalism or uatsdin serv ices? Never 08/01/2024 Do you belong [...] on file Legal Sex Male 3:42 AM [employer] SALESPERSON Gender Identity Not on file Sexual Orientation Not on file Last Filed Vital Signs Vital Sign Reading Time Taken Comments Blood Pressure 122/75 07/29/2024 1:00 PM [employer]ERSON Pulse 116 07/29/2024 1:00 PM [employer] SALESPERSON Temperature 36.8 C (98.2 F) 07/29/2024 1:00 PM [employer] SALESPERSON Respiratory Rate 16 12/01/2023 11:1 3 AM CDT Oxygen Saturation 96% 12/01/2023 11: 13 AM CDT Inhaled Oxygen Concentration - - Weight 121.2 kg (267 lb 1.6 oz) 07/29/2024 1:00 PM [employer] CY[employer] SALESPERSON Height 177.8 cm (5' 10) 07/29/2024 1:00 PM [employer] SALESPERSON Body Mass Index 38.32 07/29/2024 1:00 PM [employer] SALESPERSON Results * (ABNORMAL) eGFR (07/29/2024 11:01 AM MEDIUM CYCLE SALESPERSON) eGFR 7(L) >=60 mL/min/1. 73 m2 [...] reviewed 2021. Blood 07/29/2024 11:0 1 AM [employer]IUM CYCLE SALESPERSON 07/29/2024 11:33 AM [employer] CYCLE SALESPERSON Jossie King MD LAB BLOOD ORDERABL ES Final Result [facility] [place] [address] * PSA screen (07/29/2024 11:01 AM MEDIUM CYCLE SALESPERSON) PSA-Total 0.55 <=3.90 ng/mL Comment: Interpretive [...] revised 21. Blood 07/29/2024 11:0 1 AM MEDIUM CYCLE SALESPERSON 07/29/2024 11:33 AM MEDIUM CYCLE SALESPERSON Narrative [facility] - 07/29/2024 12:39 PM MEDIUM CYCLE SALESPERSON This lab is being obtained as part of a Kidney transplant evaluation, is time sensitive, and should only be drawn during the evaluation visit at [address] Jossie King MD LAB BLOOD ORDERABL ES Final Result Performing Organization Address [facility] Co de Phone Number [facility] [place] [employer] [place] [address] * Hepatitis C antibody Blood (07/29/2024 11:01 AM MEDIUM CYCLE SALESPERSON) [facility] Hep C Ab Nonreactive Nonreactive Comment:Antibodies to HCV no t detected. Does NOT exclude the possibility of recent exposure to HCV. Current interpretive data was last revised on 22 Blood 07/29/2024 11:0 1 AM [employer]IUM CYCLE SALESPERSON 07/29/2024 11:32 AM MEDIUM CYCLE SALESPERSON Narrative [facility] - 07/29/2024 12:47 PM MEDIUM CYCLE SALESPERSON This lab is being obtained as part of a Kidney transplant evaluation, is time sensitive, and should only be drawn during the evaluation visit at [address] Jossie King MD LAB MICROBIOLOGY - GENERAL ORDERABLES Final Result Performing Organization Address City/[facility]/ZIP Co de Phone Number [facility] [place] [employer] [address] * (ABNORMAL) Hemoglobin A1c (07/29/2024 11:01 AM MEDIUM CYCLE SALESPERSON) [facility] Hgb A1C 9.0(H) 4.0 - 5.6 % Estimated Average Glucose 212 mg/dL [facility] Comment: The ADA recommends reporting an estimated Average Glucose (eAG) with all Hemoglobin A1c results using the equation derived from a study of 507 normal and diabetic adults. Minority populations were underrepresented and children were not included. (Diabetes Care 2020; 43(S1): S66-S76). The eAG is not equivalent to a fasting glucose. Blood 07/29/2024 11:0 1 AM MEDIUM CYCLE SALESPERSON 07/29/2024 11:34 AM MEDIUM CYCLE SALESPERSON Narrative [facility] - 07/29/2024 11:53 AM MEDIUM CYCLE SALESPERSON This lab is being obtained as part of a Kidney transplant evaluation, is time sensitive, and should only be drawn during the evaluation visit at [facility] us Jossie King MD LAB BLOOD ORDERABL ES Final Result [facility] Department [place] [address] * (ABNORMAL) Lipid panel (07/29/2024 11:01 AM MEDIUM CYCLE SALESPERSON) Cholesterol 114 30 - 199 mg/dL [...] on 2018. Triglycerides 66 <=149 mg/dL [facility] Comment: Interpretive Data Ages [...] on 2018. HDL 29(L) >=40 mg/dL [facility] Comment: [...] 2018. LDL, calculated 71 <=129 mg/dL [facility] Comment: [...] on 2024. Non-HDL Cholesterol 85 mg/dL [facility] Comment: [...] last revised on 2018. Chol/HDL ratio 4 [facility] Blood 07/29/2024 11:0 1 AM MEDIUM CYCLE SALESPERSON 07/29/2024 11:33 AM MEDIUM CYCLE SALESPERSON Narrative [facility] - 07/29/2024 12:10 PM MEDIUM CYCLE SALESPERSON This lab is being obtained as part of a Kidney transplant evaluation, is time sensitive, and should only be drawn during the evaluation visit at [facility] us Jossie King MD LAB BLOOD ORDERABL ES Final Result [facility] Department [place] [address] * (ABNORMAL) TSH (10/27/2023 2:30 AM MEDIUM CYCLE SALESPERSON) Pathologist [facility] Thyroid Stimulating Hormone 13.20(H) 0.30 - 4.20 mcIUnit/mL Blood 10/27/2023 2:30 AM MEDIUM CYCLE SALESPERSON 10/27/2023 2:42 AM MEDIUM CYCLE SALESPERSON us Lorne Mcnulty MD LAB BLOOD ORDERABLES Final Result [facility] [address] Department [place] [address] from Last 3 Months or Most Recently Relevant to Health Maintenance
--- OUTSIDE RECORDS SUMMARY | 2025-03-06 17:41 | XMS_ITS | Clinical Summary ---
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 Active clopidogrel (PLAVIX) 75 mg Tablet [...] Take 50,000 Units by mouth. Active Insulin [place], Disposable, (TRUEPLUS PEN NEEDLE) 31 gauge x [...] (06/29/2022): Added automatically from request for surgery [id number] Right upper quadrant pain 09/24/2020 Pre-transplant evaluation for kidney transplant 03/24/2020 Overview (06/29/2022): Images from the original note were not included. Juvenal Daigle 1970 Referring Motion Graphics Artist: Leandro Reyes Dialysis Info: Type: PD Time: 160 days (11/05/2019) Blood Type: A Body mass index is 37.8 kg/m . ALERTS Modern Languages Professor: Vashti Lizama NP Past Medical History: Diagnosis Date Anemia Arthritis Arthropathy osteo. back and knees see Dr. Norton CAD (coronary artery disease) Community acquired pneumonia 2017 [facility] hospitalized with double pneumonia Congestive heart failure Coronary artery disease Diabetes mellitus type 1 teens dx when he was 13. Insulin since he was dx. Insulin pump currently with dexacom. 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 DM (diabetes mellitus) TYPE 1 DVT (deep venous thrombosis) 2017 [facility]. ESRD on peritoneal dialysis Gout History of blood transfusion 2017 during admission for NE HLD (hyperlipidemia) HTN (hypertension) Hypercholesteremia 5 years on med Hypertension 30's on medications. Kidney disease Myocardial infarction 2017 [facility]. Stent x1 placed. Neuropathy feet Obstructive [...] file Gets together: Not on file Attends mandaeism service: Not on file Active member of [...] 07/02/2020: Committee Discussion Details: Pt brought to [facility] to discuss his cardiac workup. Team [...] Impression: It is the impression of this geriatric social worker that Juvenal Daigle has several [...] of safety concerns regarding immunosuppressants. Plan: ornamental metal worker apprentice to provide supportive services as needed. Patient appears to be a reasonable candidate for transplant from a psychosocial perspective. -Post transplant arrangement forms are needed prior to being listed. Psychiatric Consult Recommended: No Transplant Upholstery Auto Trimmer: Radha Roper LCSW RD:05/14/2020 BMI= 40.0, Class [...] 11:24 AM CDT Height 177.8 cm (5' 10) 06/29/2022 6:00 PM CAKE MIXER Body Mass Index 37.74 06/29/2022 6:00 PM CAKE MIXER Plan of Treatment Health Maintenance Due Date [...] 09/07/2022, Additional history exists INFLUENZA VACCINE (#1) 2025 2, 06/04/2022, 06/08/2021, Additional history exists COLORECTAL SCREENING 03/08/2029 03/08/2019 Colorectal Cancer Screening 03/08/2029 DTAP/TDAP/TD VACCINES (2 - T d or Tdap) 10/21/2029 10/22/2019 Insurance AENA O MCR Advance Directives For more information, please contact: [phone] * Full Code (Latest Code Status on File) Date Activated Date Inactivated Comments 06/29/2022 2:49 PM 07/08/2022 4:30 PM Care Teams Head Paper Tester Relationship Specialty Start Date End Date Aditya Castro MD PCP - General Student in an Organized Health Care Education/Training Program 09/11/18
--- OUTSIDE RECORDS SUMMARY | 2025-03-06 17:41 | XMS_ITS | Encounter Summary ---
Author Organization [facility] Address [address] [place] [address] Phone Care Team Providers Care Customer Leader Name Role Phone Unavailable Primary Care Provider Unavailabl e Reason for Visit * Reason Comments Med Refill Encounter Details Date Type Department Care Team (Late st Contact Info) Description 01/25/2019 Refill [facility] [address] [facility] 1 [place] [address] Leandro Reyes MD [address] [facility] 1 [place] [address] Social History Tobacco Use Types [...]
--- OUTSIDE RECORDS SUMMARY | 2025-03-06 17:41 | XMS_ITS | Encounter Summary ---
Author Organization [facility] Address [address], [place] [address] Phone Care Team Providers Care Hoist Operator Name Role Phone Unavailable Primary Care Provider Unavailabl e Reason for Visit * Reason Comments Med Refill Encounter Details Date Type Department Care Team (Late st Contact Info) Description 02/24/2020 Refill [facility] [address] [address] Leandro Reyes MD [address] [address] Social History Tobacco Use Types Packs/Day Years [...]
--- OUTSIDE RECORDS SUMMARY | 2025-03-06 17:42 | XMS_ITS | Data Portability ---
Author Organization [facility], [facility] IP Address [address] [place] [address] Care Team Providers Care Nail Setter Name Role Phone STEPHANIE CORREA Primary Care [...] By Organization Details Last Modified Time 07/25/2018 [id number] use OTC lubrican t eyedrops 3 times a day in both eyes. [email or web address] Not available 07/25/2018 17:27:28 Keep follow-up appointments in 2 months as scheduled. msafi Not available 07/25/2018 17:27:45 12/05/2018 [id number] diabetic retinopathy: care instructions msafi Not available 12/05/2018 20:02:55 type 2 diabetes: care instructions formerly [facility] Not available 12/05/2018 20:02:55 Reason for Referral None Reported. Problems Name Problem SNOMED Code Status Onset Date Resolution Date Notes Provider Name and Address Organization Details Recorded Time Diabetes mellitus 91723326 Active 2017 Wandy agosto [facility] 8 12:14:02 Hypercholestero lemia 92474677 Active 2017 Wandy agosto [facility] 8 12:14:14 Problem Notes None recorded. Procedures Surgical History Date Name Laterality Status Provider Name and Address Organization Details Recorded Time 9 placement of stent in coronary artery completed Wandy Rapp [facility] 12/05/2018 10:00:35 7 placement of stent in coronary artery completed Wandy Rapp [facility] 12/05/2018 09:59:38 7 Cataract Surgery completed Wandy Rapp [facility] 12/05/2018 10:00:20 Imaging Results None recorded. Procedure Notes None recorded. Medical Equipment None Reported. Allergies Allergen ID Allergen Name Allergen Category Reaction Reaction Severity Criticality Documentation Date Start Date Code Code System Note Provider Name and Address Organization Details Recorded Time 613821 Brilinta medicatio n Not available Not available Not available 07/04/2018 95580 36 [facility] 12:13[facility]16 839568 Iodinated contrast media (substanc e) medicatio n Not available Not available Not available 07/04/2018 47404 2004 [facility] 12:13:31 Medications Name Sig [...] index (BMI) Body weight Heart rate Systolic And Diastolic Provider Name and Address Organization Details Last Updated DateTime 12/05/2018 180.34 cm 37.8 kg/m2 386252.5 3 g 62 /min 133/64 mm[Hg] Wandy Rapp [facility] 12/05/2018 09:58:22 Date Recorded Body height Heart rate Body mass index (BMI) Body weight Systolic And Diastolic Provider Name and Address Organization Details Last Updated DateTime 07/04/2018 180.34 cm 64 /min 37 kg/m2 162769.9 8 g 161/66 mm[Hg] Wandy Dionte [facility] 07/04/2018 12:12:14 Date Recorded Body height Heart rate Body mass index (BMI) Body weight Systolic And Diastolic Provider Name and Address Organization Details Last Updated DateTime 07/25/2018 180.34 cm 63 /min 36.9 kg/m2 113909.4 6 g 148/67 mm[Hg] Bernice Connelly RN [facility] 07/25/2018 15:12:11 Social History Question Answer Notes LastModified by Organizat ion Details LastModified Time Tobacco Smoking Status Never Smoker Wandy Dionte [facility] 12/05/2018 09:58:54 What Was The Date Of Your Most Recent Tobacco Screening? 12/05/2018 Information not available 03/14/2019 Has Tobacco Cessation Counseling Been Provided? 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 6166744896 45914 E11.3299 Tear film insufficiency 94062662 H04.367 [id number] Evy Olson MD [facility] [address] [place] [address] 12/05/2018 09:46:14 12/06/2018 13:28:35 Nonproliferative retinopathy due to diabetes mellitus 788038623 E11.3293 After-juan ract with vision obscured following extraction of cataract 070142840 H26.492 Health Concerns Section Related Observation LastModified by Organization Detai ls LastModified Time None Recorded Concern Status LastModified by Organization Details LastModified Time None Recorded Advance Directives Directive None Recorded Payers Insurance Date Sequence Insurance Name Policy Number Policy Ge Covered Member ID Ge Member ID Guarantor Name 12/02/2018 1 [facility] (MEDICAID HMO) [id number] Juvenal Daigle [id number] Juvenal Daigle Notes Date Note Type Note Provider Name and Address Organization Details Recorded Time 07/04/2018 text/html C/O bleeding in left eye 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 Sx OU. 2016 and 2018. No prolbem in post op exam Evy Olson MD [address] [place], [address], [facility] 07/05/2018 10:07:17 07/25/2018 text/html complaint of red spot in the right eye since 3 days, no pain no discharge no previous injury.History of diabetic retinopathy in both eyes MD Jesus Alberto [address], [place], [address], [facility] 07/25/2018 17:28:04 12/05/2018 text/html F/U DRP. c/o decreased vision in left eye MD Jesu sAlberto [address]choa[address] [place], [address], [facility] 12/05/2018 20:02:58
--- OUTSIDE RECORDS SUMMARY | 2025-03-06 17:42 | XMS_ITS | Encounter Summary ---
Author Organization [facility] Address [address] [place] [address] Care Team Providers Care Dominatrix Name Role Phone Aditya aCstro MD Primary Care Provider [phone] Encounter Details Date Type Department Care Team (Late st Contact Info) Description 04/15/2019 Telephone [facility] Oncology and Hematology - [place] [address] [facility] [address] [place] [address] Fernando Schmid MD [address] [facility] [address] [place] [address] Social History Tobacco Use Types [...] on filedocumented in this encounter Care Teams Dominatrix Relationship Specialty Start Date End Date Adiyta Castro MD PCP - General Student in an Organized Health Care Education/Training Program 09/11/18 documented as of this encounter
--- OUTSIDE RECORDS SUMMARY | 2025-03-06 17:43 | XMS_ITS | Encounter Summary ---
Author Organization [facility] Healthcare Address [address] [place] [address] Care Team Providers Care School Commissioner Name Role Phone Jhonatan Bellamy MD Primary Care Provider [phone] Pedro Lakhani MD Primary Care Provider Eugenia Hughes MD Primary Care Provider [phone]- [phone] Aditya Castro MD Primary Care Provider [phone] Alondra Lambert RN Unavailable [phone] Shannon Brock MD, [place] P. 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 DIRECTOR Gender Identity Not on file Sexual Orientation Not on file documented as of this encounter Plan of Treatment Not on file documented as of this encounter Procedures Procedure Name Priority Date/Time Associated Diagnosis Comments SCAN - RADIOLOGY/IMAGING 01/11/2018 documented in this encounter Results * SCAN - RADIOLOGY/IMAGING (01/11/2018) Anatomical Region Laterality Modality Other us Provider Scanning Final Result documented in this encounter Visit Diagnoses Not on filedocumented in this encounter Additional Health Concerns Infection Onset Date Last Indicated Resolved Time COVID: Suspected 06/08/2022 06/08/2022 06/08/2022 10:14 PM CDT COVID: Suspected 06/15/2022 06/15/2022 06/15/2022 1:03 PM CDT documented as of this encounter Care Teams School Commissioner Relationship Specialty Start Date End Date Jhonatan Bellamy MD [address] [place] [address] PCP - General 03/25/15 04/16/18 Pedro Lakhani MD [address] [facility] [place] [address] PCP - General Family Practice 04/17/18 04/18/18 Eugenia Hughes MD [address] [facility] [place] [address] PCP - General Family Practice 04/19/18 10/16/19 Aditya Castro MD [address] [facility] DE[facility] [place] [address] PCP - General 10/17/19 Alondra Lambert, RN [address] [facility] [address] [place] [address] Criminal Defense Lawyer 03/06/24 Hamlet Ortega Jr., MD [address] [place] [address] Consulting Physician Cardiovascular Disease 05/10/24 Leandro Reyes MD [address] [facility] 1 [place] [address] Consulting Physician Nephrology 07/30/24 documented as of this encounter
--- OUTSIDE RECORDS SUMMARY | 2025-03-06 17:43 | XMS_ITS | Encounter Summary ---
Author Organization [facility] Address [address] [place] [address] Care Team Providers Care Load Dropper Name Role Phone Aditya Castro Primary Care Provider Unavailab le Reason for Visit * Reason Onset Date Comments Med Question 06/25/2019 Encounter Details Date Type Department Care Team (Late st Contact Info) Description 06/25/2019 Telephone [facility] [address] [place] [address] Finn Kramer MD [address] [place] [address] Med Question Social History Tobacco Use Types Packs/Day Years Used Date Smoking Tobacco: Never Smokeless Tobacco: Never Alcohol Use Standard Drinks/Week Comments No 0 (1 standard drink = 0.6 oz pur e alcohol) Sex and Gender Information Value Date Recorded Sex Assigned at Not on file Legal Sex Male 5:33 AM DECK OFFICER Gender Identity Not on file Sexual Orientation Not on file documented as of this encounter Miscellaneous Notes * Telephone Encounter - Anali Connelly - 06/25/2019 1:41 PM CST Called and spoke with pt he is asking that we call [facility] at [phone] and talk to them about the compression stockings. I called and spoke with Kashif at [facility] and gave clarification the the mmHg I let them know that they should Be the 20-30mmHg . He understood and will get them ready for pt. Anali Connelly OFFICER * Telephone Encounter - Theodore Huerta - 06/25/2019 10:40 AM CST Pt called saying patient pharmacy just needs clarification of a number on the prescription for compression socks. Please Advise. OFFICER documented in this encounter Plan of Treatment Upcoming Encounters Date Type Department Care Team (Latest Contact Info) Description 03/17/2025 7:20 AM CDT Hospital Encounter [facility] Perioperative Surgery [address] [place] [address] [id number] Abelardo Meyers MD [address] [place] [address] Surgery General 03/17/2025 7:20 AM CDT - 03/17/2025 8:43 AM CDT Surgery [facility] Perioperative Surgery [address] [place] [id number] Abelardo Meyers MD [address] [place] [address] LEFT UPPER ARM ARTERIOVENOUS FISTULA 03/17/2025 7:30 AM CDT Procedure visit [address] [address] Abelardo Meyers MD [address] [place] [phone] 03/31/2025 10:20 AM CDT Office Visit [address] [address] Abelardo Meyers MD [address] [place] [phone] Scheduled Procedures Name Priority Associated Diagnoses Date/Ti me CREATION ARTERIOVENOUS (AV) FISTULA DIRECT 03/17/2025 7:20 AM C DT documented as of this encounter Visit Diagnoses Not on filedocumented in this encounter Care Teams Load Dropper Relationship Specialty Start Date End Date Aditya Castro Update Information PCP - General 03/06/19 documented as of this encounter
--- OUTSIDE RECORDS SUMMARY | 2025-03-06 17:43 | XMS_ITS | Data Portability ---
Author Organization [place] [facility] [employer], Main Office Address [address] [place] [address] Care Team Providers Care Priming Powder Premix Blender Name Role Phone ADITYA CATHERINE Primary Care Provider ADITYA CATHERINE Referring Provider ADITYA CATHERINE Primary Care Provider [phone] Assessment Encounter Date Assessment Date Assessment LastModified by Organization Details LastModified Time 11/18/2024 11/18/2024 Advised pt to go to ED; but pt declined. Pt wants to try meds today and see how he feels. Risks explained. Cont f/u with Cardio and Pulmo as directed. [email or web address] Not available 11/18/2024 12:26:24 12/25/2024 12/25/2024 Patient sent to ER after assessing vitals signs-heart re remained elevated and irregular-along with symptomatic with dizziness, dyspnea and increased fatigue Time spent with patient included: preparing to see patient by reviewing tests, obtaining and reviewing history, medical examination and evaluation, counseling and educating the patient, ordering medications and tests, documenting clinical information in EHR, independently interpreting results and communicating results to the patient for a total of 50 minutes. Not available 12/25/2024 14:04:28 02/26/2025 02/26/2025 complicated history today will address urgency of elevated INR and address pain meds keeping in mind ckd pt is going home to check inr and promised to call me with results, if needed we can reach out to dr lancaster f/u with dr catherine as soon as he is available for f/u to ER if worse discussed at length with the patient [email or web address] Not available 02/26/2025 12:06:40 03/06/2025 03/06/2025 Time spent with patient included: preparing to see patient by reviewing tests, obtaining and reviewing history, medical examination and evaluation, counseling and educating the patient, ordering medications and tests, documenting clinical information in EHR, independently interpreting results and communicating results to the patient for a total of 43 minutes. Not available 03/06/2025 11:19:01 Plan of Treatment [...] Not available Not available Any 2024 01:00P Lisa Hidalgo NP Not available Not available Not available Lab alpha-1-a ntitrypsi n (aat) phenotype , serum 2024 [email or web address] [place] [address] (Lab), [address] [place], [address], 01/30/2025 17:27:02 ige, total, serum 2024 025 [email or web address] 2 [facility] (Lab), [address] [place], [address], 01/30/2025 17:27:14 tb (M tuberculo sis), ifn-gamma hiwot, blood 2024 025 [email or web address] 2 [facility] (Lab), [address] [place], [address], 01/30/2025 17:27:[address] s 1+2+3+4, serum 2024 025 [email or web address] 2 [facility] (Lab), [address] [place], [address], 01/30/2025 17:27:38 respirato ry allergen panel, [facility] A, serum 2024 025 2 [facility] (Lab), [address] [place], [address], 01/30/2025 17:27:52 respirato ry allergen panel - [facility] b 2024 025 [email or web address] 2 [facility] (Lab), [address] [place], [address], 01/30/2025 17:28:03 Referral None recorded. Procedures None recorded. Surgeries None recorded. Imaging XR, chest, 2 view 2024 025 [email or web address] 2 [facility], [address] [place] [address], [address], 01/15/2025 13:57:03 Medication Orders Symbicort 160 mcg-4.5 mcg/actua tion HFA aerosol inhaler 2024 025 [facility], [address] [place], [place], [id number], 03/06/2025 11:04:45 albuterol sulfate HFA 90 mcg/actua tion aerosol inhaler 2024 025 [facility], [address] [place], [place], [id number], 03/06/2025 11:04:41 mupirocin 2 % topical ointment 2024 025 [facility], [address] [place], [place], [id number], 02/26/2025 12:01:55 tramadol 50 mg tablet 2024 025 [facility]97141, [address] [place], [place], [id number], 02/26/2025 12:01:20 cephalexi n 500 mg capsule 2024 025 [facility] #41495, [address] [facility], [place], [place], [id number], 01/20/2025 15:10:48 clotrimaz ole-betam ethasone 1 %-0.05 % topical cream 2024 [facility] #21142, [address] [facility], [place], [place], [id number], 02/26/2025 11:14:33 Serevent Diskus 50 mcg/dose powder for inhalatio n 2024 [facility] #56415, [address] [facility], [place], [place], [id number], 12/25/2024 12:08:47 amoxicill in 875 mg-potass ium clavulana te 125 mg tablet [address] [facility] #48818, [address] [facility], [place], [place], [id number], 12/23/2024 16:23:02 prednison e 10 mg tablet [address] [place] [address] [facility] #37330, [address] [facility], [place], [place], [id number], 12/23/2024 16:23:56 benzonata te 200 mg capsule [address] [place] [address] [facility] #92656, [address] [place], [place], [id number], 12/23/2024 16:22:53 ketoconaz ole 2 % shampoo [address] [facility] #49925, [address] [facility], [place], [place], [id number], 12/23/2024 16:23:33 Patient TargetsNo targets recorded. Patient InstructionsNo instructions recorded. Reason for Referral None Reported. Results Created Date Observation Date Name Description Value Unit Range Abnormal Flag Note LastModifiedBy Organization Detail LastModifiedTime 10/23/19 25 10/16/2024 CT, thora colum bar spine , w/o contr ast No observ ation record ed. [email or web address] [facility] [address], [place], [address], 11/18/2024 11:52:31 11/23/19 25 11/22/2024 XR, chest , 2 view No observ ation record ed. [address], [place], [address], 11/26/2024 18:05:17 11/23/19 25 11/22/2024 CT, chest , w/o contr ast No observ ation record ed. [address] [facility] [address] [facility], [place], [address], 11/26/2024 18:05:51 11/24/19 25 11/23/2024 CT, abdom en + pelvi s, w/o contr ast No observ ation record ed. [address], [place], [address], 11/26/2024 18:06:28 11/25/19 25 11/24/2024 XR, abdom en No observ ation record ed. [address], [place], [address], 11/26/2024 18:08:44 11/27/19 25 11/26/2024 ultra sound guide d thora cente sis (PROC ) No observ ation record ed. [email or web address] [address], [place], [address], 11/26/2024 17:29:22 12/17/19 25 12/11/2024 compl ete PFT w/ post [facility] hodil ator mandeep metry * No observ ation record ed. [facility] (Pulmonary) [address], [place], [address], 12/24/2024 11:07:53 12/24/19 25 11/22/2024 CT, chest , w/o contr ast No observ ation record ed. [email or web address] [facility] [address], [place], [address], 12/24/2024 09:10:12 12/26/19 25 12/25/2024 XR, chest , 2 view No observ ation record ed. [email or web address] [facility] [address] [place], [address], 01/15/2025 13:57:03 12/26/19 25 12/25/2024 NM, lung scan, venti latio n/per fusio n No observ ation record ed. [email or web address] [facility] [address] [place], [address], 12/26/2024 12:04:18 12/28/19 25 12/25/2024 NM, lung scan No observ ation record ed. [email or web address] Not Available 2024 09:15:59 01/13/20 25 01/11/2025 US, abdom en, limit ed No observ ation record ed. [email or web address] [facility] [address], [place], [address], 01/14/2025 18:06:58 Result Notes None recorded. Problems Name Problem SNOMED Code Status Onset Date Resolution Date Notes Provider Name and Address Organization Details Recorded Time Deep venous thrombosi s 084257879 Completed 201705/08/2018 Not Available [facility] 3 01:10:47 History of deep vein thrombosi s 004173307 Active 2017 Not Available [facility] 3 01:10:47 Myocardia l infarctio n 26733781 Completed 201705/08/2018 Not Available [facility] 3 01:10:48 Gastroeso phageal reflux disease without esophagit is 929195449 Active 2017 Not Available [facility] 3 01:10:48 Anemia 417173605 Active 2017 Not Available [facility] 3 01:10:48 Type 2 diabetes mellitus without complicat ion 656347017 Completed 201701/10/2019 Not Available [facility] 3 01:10:48 Hypertens bianca disorder 54494629 Active 2017 Not Available [facility] 3 01:10:49 Multiple benign melanocyt ic nevi 340132730 Active 2017 Not Available [facility] 3 01:10:50 Obesity 939204050 Active 2017 Not Available [facility] 3 01:10:50 Congestiv e heart failure 55254748 Active 2017 Not Available [facility] 3 01:10:50 Chronic kidney disease stage 4 242270695 Completed 201707/29/2020 Not Available [facility] 3 01:10:51 Atrial fibrillat ion 62971744 Active 2017 Not Available [facility] 3 01:10:52 Gout 96652361 Active 2017 Not Available [facility] 3 01:10:53 Chronic renal failure 58942264 Completed 201705/08/2018 Not Available [facility] 3 01:10:54 Vitamin D deficienc y 70873577 Active 2017 Not Available [facility] 3 01:10:49 Uncontrol led type 2 diabetes mellitus 331083566 Completed 201705/16/2019 Aditya Catherine MD [address] [place] [address], [address] [address], [place], [address] , [facility] 4 09:03:03 Hyperlipi demia 49021261 Active 2017 Not Available [facility] 3 01:10:52 Hyperchol esterolem ia 30046958 Active 2017 Not Available [facility] 3 01:10:47 Heartburn 96258290 Active 2017 Not Available [facility] 3 01:10:47 Dizziness 350343134 Active 2017 Not Available [facility] 3 01:10:50 Diabetic periphera l neuropath y 115534576 Active 2017 Not Available [facility] 3 01:10:51 Heart disease 72384157 Active 2017 Not Available [facility] 3 01:10:52 Diabetes mellitus 72115652 Active 2017 Not Available [facility] 3 01:10:52 Skin lesion 15988511 Active 2017 Not Available 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 569102496 Active 2017 Not Available [facility] 3 01:10:47 Pain in toe 582735597 Active 2018 Not Available [facility] 3 01:10:48 Pain in toe 328900597 Active 2018 Not Available [facility] 3 01:10:48 Dystrophi a unguium 87937510 Active 2018 Not Available [facility] 3 01:10:53 Degenerat ion of lumbar intervert ebral disc 87696763 Active 2018 Not Available [facility] 3 01:10:48 Type 1 diabetes mellitus 74840890 Active 2018 Not Available [facility] 3 01:10:52 Abrasion and/or friction burn of skin 381722834 Active 2018 Not Available [facility] 3 01:10:49 Chronic physical disabilit y 020410060 Active 2018 Not Available [facility] 3 01:10:47 Chronic low back pain 876851057 Active 2018 Not Available [facility] 3 01:10:48 Umbilical hernia 114036508 Active 2018 Not Available [facility] 3 01:10:49 Hyperpara thyroidis m 14200464 Active 2018 Not Available [facility] 3 01:10:52 Obstructi ve sleep apnea syndrome 55278673 Active 2018 Not Available [facility] 3 01:10:53 Corneal abrasion 88139267 Active 2018 Not Available [facility] 3 01:10:53 Chronic kidney disease stage 5 530274170 Active 2019 Not Available [facility] 3 01:10:51 Osteoarth ritis 201432404 Active 2019 Not Available [facility] 3 01:10:49 Atypical chest pain 263313114 Active 2019 Not Available [facility] 3 01:10:47 Ketoacido sis due to type 1 diabetes mellitus 770933315 Active 2019 Not Available [facility] 3 01:10:50 End-stage renal disease 60193566 Active 2019 Not Available [facility] 3 01:10:51 End stage renal failure on dialysis 224666911 Active 2019 Not Available [facility] 3 01:10:48 Pain in left foot 47467473613 9107 Active 2019 Not Available [facility] 3 01:10:48 Ultrasoun d scan abnormal 325342629 Active 2020 Not Available [facility] 3 01:10:47 Right upper quadrant pain 281054395 Active 2020 Not Available [facility] 3 01:10:48 Chronic idiopathi c constipat ion 70501328 Active 2020 Not Available [facility] 3 01:10:53 Periphera l venous insuffici ency 11913426 Active 2020 Not Available [facility] 3 01:10:47 Chronic sinusitis 58254766 Active 2021 Not Available [facility] 3 01:10:49 Deviated nasal septum 720040094 Active 2021 Not Available [facility] 3 01:10:47 Hypertrop hy of nasal turbinate s 67656237 Active 2021 Not Available [facility] 3 01:10:47 Nasal congestio n 87473650 Active 2021 Not Available [facility] 3 01:10:52 Plantar fasciitis of right foot 22199264942 787013 Active 2021 Not Available [facility] 3 01:10:47 Nausea 687246141 Active 2021 Not Available [facility] 3 01:10:50 Gastritis 9843083 Active 2021 Not Available [facility] 3 01:10:51 Epigastri c pain 70369012 Active 2021 Not Available [facility] 3 01:10:53 Sensorine ural hearing loss of bilateral ears 661454437 Active 2021 Not Available [facility] 3 01:10:47 Dysphagia 83218192 Active 2021 Not Available [facility] 3 01:10:50 Asymmetri nikos hearing loss 773591131 Active 2021 Not Available [facility] 3 01:10:51 Sinusitis 44080048 Active 2021 Not Available [facility] 3 01:10:49 Vertigo 069942383 Active 2021 Not Available [facility] 3 01:10:49 Deep venous thrombosi s of lower extremity 343630379 Active 2022 Not Available [facility] 3 01:10:50 Chronic back pain 444164133 Active 2022 Not Available [facility] 3 01:10:47 Seborrhei c dermatiti s of scalp 144755916 Active 2022 Not Available [facility] 3 01:10:47 Hypertrig lyceridem ia 620021888 Active 2022 Aditya Catherine MD [address], [place], [address] , [employer] 3 16:04:08 Chronic constipat ion 659761567 Active 2022 Aditya Catherine MD [address], [address], [place], [address] , [employer] 3 16:45:46 Cough 54663577 Active 2022 Aditya Catherine MD [address], [place], [address] , [employer] 3 12:45:44 Bronchiti s 83312674 Active 2022 Aditya Catherine MD [address], [place], [address] , [employer] 3 09:22:50 Allergic rhinitis 48617308 Active 2022 Aditya Catherine MD [address], [place], [address] , [employer] 3 09:28:39 Allergic contact dermatiti s 931784190 Active 2022 Aditya Catherine MD [address], [place], [address] , [employer] 3 16:06:02 Tinea cruris 917612718 Active 2022 Aditya Catherine MD [address], [place], [address] , [employer] [facility] [employer] 3 16:06:15 Acute bacterial sinusitis 41166321 Active 2023 KATIE Chen [address], [place], [address] , [facility] 4 09:55:25 Ulcer of mouth 79490449 Active 2023 Aditya Catherine MD [address], [place], [address] , [facility] 4 09:03:52 Onychomyc osis of toenails 087619243 Active 2023 Chris Linda DPM [address], [place], [address] , [facility] 4 12:24:55 Folliculi tis 65040337 Active 2023 Aditya Catherine MD [address] [address], [place], [address] , [facility] 4 10:26:36 Pain of right knee joint 03178570184 4100 Active 2023 Aditya Catherine MD [address] [place] [address], [place], [address] , [facility] 4 10:31:07 Bleeding of ear canal 151651863 Active 2023 Aditya Catherine MD [address] [address], [place], [address] , [facility] 4 10:40:38 Acute left otitis media 092206507 Active 2023 Rohit Jessica MD [address] [place] [address], [place], [address] , [facility] 4 16:04:39 Thoracic back pain 836189643 Active 2023 Aditya Catherine MD [address], [place], [address] , [place] [facility] 4 16:28:59 Pain of right shoulder blade 943912810 Active 2023 Aditya Catherine MD [address], [place], [address] , [facility] 4 16:30:04 Degenerat ion of thoracolu mbar intervert ebral disc 70464069 Active 2023 Aditya Catherine MD [address], [place], [address] , [facility] 4 16:30:54 Hypothyro idism 69498867 Active 2023 Aditya Catherine MD [address], [place], [address] , [facility] 4 16:34:29 Uncontrol led type 2 diabetes mellitus 573796818 Active 2023 Aditya Catherine MD [address], [place], [address] , [facility] 4 09:03:03 Bilateral osteoarth ritis of knees 01294864171 9107 Active 2023 Sofia Keyonna null, [place] [facility] 4 11:42:16 Pain of left knee joint 80942996221 4107 Active 2023 LESLY Gambino [address], [place], [address] , [facility] 4 13:42:14 Pain of right hip joint 84500019130 9102 Active 2023 Lisa Lopez CNA null, [place] [facility] 4 11:11:43 Trochante margarita bursitis of right hip 12471857968 9100 Active 2023 LESLY Gambino [address], [place], [address] , [facility] 4 12:00:40 Gallstone 469605781 Active 2023 Aditya Catherine MD [address], [place], [address] , [place] [facility] 4 11:21:33 Right flank pain 247276386 Active 2023 Aditya Catherine MD [address], [place], [address] , [employer] [facility] [employer] [facility] 4 11:29:38 Kidney stone 41317942 Active 2023 Aditya Catherine MD [address], [place], [address] , [employer] [facility] 4 11:31:01 Pleural effusion 17952289 Active 2024 Aditya Catherine MD [address], [place], [address] , [employer] [facility] 5 11:40:43 Dyspnea on exertion 47651918 Active 2024 Milly Hidalgo NP [address], [place], [address] , [employer] [facility] 5 11:13:03 Multiple nodules of lung 666230726 Active 2024 Milly Hidalgo NP [address], [place], [address] , [employer] [facility] 5 11:31:08 Environme ntal allergy 946404762 Active 2024 Milly Hidalgo NP [address], [place], [address] , [employer] [facility] 5 12:39:05 Chronic obstructi ve pulmonary disease 30830892 Active 2024 Milly Hidalgo NP [address], [place], [address] , [employer] [facility] 5 11:55:04 Persisten t atrial fibrillat ion 443182426 Active 2024 Milly Hidalgo NP [address], [place], [address] , [place] [facility] 5 14:16:49 Eruption of skin of penis Active 2024 Aditya Catherine MD [email or web address], [place], [address] , [employer] 5 15:08:12 Superfici al folliculi tis 010589436 Active 2024 Aditya Catherine MD [address], [place], [address] , [employer] 5 15:08:33 Benign hypertens ion 63835345 Active 2024 Aditya Catherine MD [address], [place], [address] , [employer] 5 11:06:44 Hang nail 1392790 Active 2024 Stephie Herron NP [email or web address], [address] [address], [place], [address] , [employer] 5 11:45:19 Hematoma 379194736 Active 2024 Stephie Herron NP [email or web address], [address] [address], [place], [address] , [employer] 5 11:49:04 Blood in urine 68830818 Active 2024 Stephie Herron NP [email or web address], [address] [address], [place], [address] , [employer] 5 11:51:26 Notes:blood clots, coronary artery disease, head trauma or injury, kidney disease, seizures, use of blood thinners, balance problems, numbness or tingling, loss of memory, swelling in legs, shortness of breath, muscle pain, back/neck pain, swollen or painful joints, excessive thirst, dry mouth, sleep apnea, wears glasses Some problems listed in Document: #[id number] could not be added to this patient's chart. Please review this document and add these problems to the patient's chart manually as needed. Problem Notes None recorded. Procedures Surgical History Date Name Laterality Status Provider Name and Address Organization Details Recorded Time 05/02/20 24 Nail Debridement completed Chris Maddi, DPM [address], [place], [address], [employer] 05/20/2024 09:31:13 03/11/20 24 Nail Debridement completed Chris Linda DPM [address], [place], [address], [employer] 03/11/2024 12:35:50 03/11/20 24 Wound Care-Podiatry completed Chris Linda DPM [address], [place], [address], [employer] 03/11/2024 12:34:57 01/08/20 24 Wound Care-Podiatry completed Chris Linda DPM [address], [place], [address], [employer] 01/08/2024 12:26:31 12/25/19 24 Medicare Wellness CPT Code, subsequent completed November LUAN Willis [facility] [employer] 12/25/2023 15:24:37 11/06/19 24 Medicare Wellness CPT Code, subsequent cancelled November LUAN [employer] [place] [employer] 11/03/2023 10:10:00 01/08/20 22 SEPTOPLASTY (SURG) completed Not Available [facility] 10/19/2022 01:16:48 01/22/20 Cardiac Cath completed Not Available [facility] 023 01:06:21 reduction of nasal turbinate completed Not Available [facility] 10/19/2022 01:06:21 procedure on heart completed Lisa Lopez CNA [employer] 05/10/2024 11:11:45 Imaging Results None recorded. Procedure Notes None recorded. Medical Equipment None Reported. Allergies Allergen ID Allergen Name Allergen Category Reaction Reaction Severity Criticality Documentation Date Start Date Code Code System Note Provider Name and Address Organization Details Recorded Time 1834 Iodinated contrast media (substanc e) medicatio n rash severe Not available 10/19/2022 52788 2003 SNOMED Not Available [facility] 01:16:23 1835 Brilinta medicatio n rash severe Not available 10/19/2022 63506 36 RxNorm Not Available [facility] 3 01:16:23 1836 allopurin ol medicatio n other severe Not available 10/19/2022 519 RxNorm Not Available [facility] 3 01:16:23 Medications Name Sig [...] release 24 hr 12/[address] Shannon kirk es Not Available Not [...] Take 20 mg by injectio n route. 11/01/ 2024 05/05 /2025 completed Not Available Not Available Not Available [...] 500 mg tablet 12/[address] Joshua jamison Not Available [...] mouth once a day for 1 day 09/20/ 2024 11/25 /2024 completed Not Available Not Available Not [...] mg by injectio n route. 12/23 completed ND: [id number] 4-20 Not Available Not Available [...] (0.5 %) eye ointment 12/[address] Lewis prescrib es Not Available Not [...] [employer] 0.25 % eye drops,harry pension 12/25 completed Not Available Not Available [...] Not Available Not Available Vitals Date Recorded Heart rate Provider Name an d Address Organization Details Last Updated DateTime 11/18/2024 96 /min Lisa Gonzáles [address] [facility], [facility] [address], [place], [address], [place] - [facility] Nonpareil 11/18/2024 12:23:14 Date Recorded Body height Body mass index (BMI) Body weight Body temperature Oxygen saturation Oxygen saturation in Arterial blood by Pulse oximetry Systolic And Diastolic Provider Name and Address Organization Details Last Updated DateTime 177.8 cm 38.1 kg/m2 932366. 38 g 97.6 [degF] 95 % 95 % 140/86 mm[Hg] Jessica Macedo RN [facility] [employer] [facility] 5 11:50:22 Date Recorded Body height Body mass index (BMI) Body weight Body temperature Heart rate Oxygen saturation Oxygen saturation in Arterial blood by Pulse oximetry Systolic And Diastolic Provider Name and Address Organization Details Last Updated DateTime 5 177.8 cm 38.6 kg/m2 545575. 35 g 98.3 [degF] 115 /min 96 % 96 % 126/70 mm[Hg] Nina Pool MA [facility] [employer] [facility] 5 11:46:02 Date Recorded Oxygen saturation Oxygen saturation in Arterial blood by Pulse oximetry Provider Name and Address Organization Details Last Updated DateTime 01/20/2025 94 % 94 % Aditya Catherine MD [address] [place] [address], [place], [address], [facility] Nonpareil 01/20/2025 15:13:59 Date Recorded Body height Body mass index (BMI) Body weight Body temperature Heart rate Systolic And Diastolic Provider Name and Address Organization Details Last Updated DateTime 5 177.8 cm 36.8 kg/m2 038894. 4 g 97.7 [degF] 64 /min 130/68 mm[Hg] Jessica Macedo RN [facility] [employer] [facility] 5 15:04:16 Date Recorded Body height Body mass index (BMI) Body weight Body temperature Heart rate Respiratory rate Oxygen saturation Oxygen saturation in Arterial blood by Pulse oximetry Systolic And Diastolic Provider Name and Address Organization Details Last Updated DateTime 5 177.8 cm 36.9 kg/m2 958149. 69 g 97.7 [degF] 119 /min 24 /min 99 % 99 % 100/60 mm[Hg] Lucinda Fletcher RN [facility] [employer] [facility] 5 11:18:25 Date Recorded Body height Body mass index (BMI) Body weight Body temperature Heart rate Oxygen saturation Oxygen saturation in Arterial blood by Pulse oximetry Systolic And Diastolic Provider Name and Address Organization Details Last Updated DateTime 5 177.8 cm 36.7 kg/m2 695600. 65 g 99 [degF] 87 /min 93 % 93 % 104/62 mm[Hg] Nina Pool MA [place] [facility] [place] [employer] 5 10:42:06 Social History Question Answer Notes LastModified by Organizat ion Details LastModified Time Tobacco Smoking Status Never Smoker Not Available [employer] 10/19/2022 01:04:37 Do You Have An Advance Directive? No MIGRATION.04670 43382 Information not available 10/19/2022 Are You Blind Or Do You Have Difficulty Seeing? No MIGRATION.78430 27841 Information not available 10/19/2022 Is Blood Transfusion Acceptable In An Emergency? Yes Information not available 12/07/2023 What Is Your Level Of Caffeine Consumption? Occasional MIGRATION.38533 25622 Information not available 10/19/2022 How Much Tobacco Do You Chew? None MIGRATION.43384 27911 Information not available 10/19/2022 What Is Your Code Status? Full Code Information not available 12/07/2023 In The 14 Days Before Symptom Onset, Have You Had Close Contact With A Laboratory-confi rmed COVID-19 While That Case Was Ill? No MIGRATION.66820 60499 Information not available 10/19/2022 In The 14 Days Before Symptom Onset, Have You Had Close Contact With A Person Who Is Under Investigation For COVID-19 While That Person Was Ill? No MIGRATION.41476 54846 Information not available 10/19/2022 Are You Deaf Or Do You Have Serious Difficulty Hearing? No MIGRATION.46236 67472 Information not available 10/19/2022 What Type Of Diet Are You Following? CARDIAC And Renal MIGRATION.24059 02807 Information not available 10/19/2022 Which Illicit Or Recreational Drugs Have You Used? NONE MIGRATION.05043 41761 Information not available 10/19/2022 What Is The Highest Grade Or Level Of School You Have Completed Or The Highest Degree You Have Received? TT18630-0 2 Years MIGRATION.60178 82072 Information not available 10/19/2022 Do You Have An Electrostatic Air Filter? No Information not available 10/31/2024 Have There Been Any Changes To Your Family Or Social Situation? No Information not available 12/07/2023 Are There Any Guns Present In Your Home? No MIGRATION.54929 05946 Information not available 10/19/2022 Do You Have A Humidifier? No Information not available 10/31/2024 Do You Use Insect Repellent Routinely? No Information not available 12/07/2023 Where Do You Live? SingleLevelHouse Information not available 12/07/2023 Advance Directive- Providers Has Reviewed Directive And Consents To Follow Them (insert Provider Name With Any Objectives In Notes Field) No MIGRATION.86019 36214 Information not available 10/19/2022 Presence Of Domestic [...] Do You Have A Medical Power Of Cloth Printing Inspector? No Information not available 12/07/2023 Do You Have Moisture Problems In Your Home? No Information not available 10/31/2024 What Was The Date Of Your Most Recent Tobacco Screening? 03/06/2025 Information not available 03/06/2025 Do You Have Any Pets? Yes Information not available 12/07/2023 What Is Your Relationship Status? Single MIGRATION.21860 69934 Information not available 10/19/2022 Do You Use Your Seat Belt Or Car Seat Routinely? Yes MIGRATION.61573 64033 Information not available 10/19/2022 Do You Have Smoke And Carbon Monoxide Detectors In Your Home? Yes Information not available 12/07/2023 Are You Passively Exposed To Smoke? No Information not available 12/07/2023 Are There Any Smokers In Your House? No Information not available 12/07/2023 Do You Use Sunscreen Routinely? No Information not available 12/07/2023 Have You Recently Traveled Abroad? No MIGRATION.07049 25507 Information not available 10/19/2022 Do You Have Difficulty Walking Or Climbing Stairs? No MIGRATION.25118 43165 Information not available 10/19/2022 Are You Currently In School? No MIGRATION.02135 23545 Information not available 10/19/2022 Sex: Unknown Functional Status Question Answer Note LastModified by Organizat ion Details LastModified Time Do you use any illicit or recreational drugs? No Information not available 03/06/2025 Do you or have you ever used any other forms of tobacco or nicotine? No Information not available 03/06/2025 What is your level of alcohol consumption? None MIGRATION.644343 6212 Information not available 10/19/2022 Do you or have you ever used smokeless tobacco? Never used smokeless tobacco MIGRATION.437155 8203 Information not available 10/19/2022 Have you been exposed to chemicals or toxins? not that aware of Information not available 10/31/2024 Do you have difficulty doing errands alone? No MIGRATION.658571 0459 Information not available 10/19/2022 What is your occupation? DISABLED MIGRATION.422186 5597 Information not available 10/19/2022 Do you have difficulty dressing or bathing? No MIGRATION.252837 7619 Information not available 10/19/2022 Do you or have you ever used e-cigarettes or vape? Never used electronic cigarettes MIGRATION.186434 7757 Information not available 10/19/2022 What is your exercise level? Occasional MIGRATION.283082 3804 Information not available 10/19/2022 Mental Status Question Answer Note LastModified by Organizat ion Details LastModified Time Do you feel stressed (tense, restless, nervous, or anxious, or unable to sleep at night)? [id number] MIGRATION.[id number] 26 Information not available 10/19/2022 Do you have difficulty concentrating, remembering or making decisions? No MIGRATION.44550464 26 Information not available 10/19/2022 Family History Relationship Description Onset Age of this Age Resolved Age Notes LastModified by Organization Details LastModified Time Father Heart disease MIGRATION.905 [id number] Not available 10/19/2022 01:06:25 Father Hypertensive disorder MIGRATION.205 [id number] Not available 10/19/2022 01:06:25 Notes:cancer-mother NO ENT H ISTORY Medical History Condition Response SLEEP APNEA N MRSA N ALLERGIES/HAYFEVER Y LUNG DISEASE/DISORDER N HEART ARRHYTHMIA Y HISTORY OF DRUG ABUSE N INSOMNIA N RADIATION / CHEMOTHERAPY N COPD N HIGH CHOLESTEROL / HYPERLIPIDEMIA Y HYPERTHYROIDISM N BLOOD DISEASES N EAR OR HEARING PROBLEMS N HYPOTHYROIDISM N SHINGLES N DEPRESSION (INCLUDING POST ) N HAVE YOU BEEN HOSPITALIZED OR SEEN IN [facility] IN THE PAST YEAR ? Y [...] HEARTBURN / REFLUX N BLOOD CLOTS Y ASTHMA Y HEPATITIS / LIVER DISEASE N GOUT Y SLEEP DISORDER N PAIN Y [...] quadrivalent, PF 3 completed BERNARDO Reddy Jerardo [place] [employer] [facility] 07/03/2023 11:25:39 pneumococcal polysaccharide PPV23 0 completed Not Available [facility] 10/19/2022 01:16:16 Tdap 0 completed Not Available [facility] 10/19/2022 01:16:16 Influenza, split virus, quadrivalent, PF 9 completed Not Available [facility] 10/[facility] 01:16:16 Influenza, split virus, quadrivalent, PF 2 completed Not Available [employer] 10/19/2022 01:16:16 Influenza, split virus, quadrivalent, PF 1 completed Not Available [facility] 10/19/2022 01:16:16 Past Encounters Encounter ID Performer Location Encounter Start Date Encounter Closed Date Diagnosis/Indication Diagnosis SNOMED-CT Code Diagnosis ICD10 Code Diagnosis Note [id number] Aditya Catherine MD [facility] [place] 3[address]34[address] 1 10/27/2020 00:00:00 10/27/2020 10:48:24 [id number] Aditya Catherine MD [facility] [place] [address] [place] [address] 03/08/2021 00:00:00 03/08/2021 17:34:39 [id number] Chris Linda, DPM _[facility]HE[facility]_M IGRATION_ DEFAULT_1 _1 , 03/22/2021 00:00:00 03/22/2021 20:53:26 [id number] Aditya Catherine MD [facility] [place] [address] [place] [address] 06/08/2021 00:00:00 06/09/2021 09:19:54 [id number] Aditya Catherine MD [facility] [place] [address] [place] [address] 06/22/2021 00:00:00 06/22/2021 16:14:11 [id number] Aditya Catherine MD [facility] [place] [address] [place] [address] 06/29/2021 00:00:00 06/29/2021 12:04:58 [id number] Aditya Catherine MD [facility] [place] [address] [place] [address] 07/22/2021 00:00:00 07/22/2021 10:59:05 [id number] Aditya Catherine MD [facility] [place] [address] [place] [address] 09/09/2021 00:00:00 09/09/2021 17:59:48 [id number] Aditya Catherine MD [facility] [place] [address] [place] [address] 10/05/2021 00:00:00 10/05/2021 16:51:40 [id number] Rohit Jessica MD [facility] [place] [address] [place] [address] 10/12/2021 00:00:00 10/12/2021 16:03:48 [id number] MD MEGHA DicksonGMMignon [facility] [place] [address] [place] [address] 11/18/2021 00:00:00 11/18/2021 15:39:06 [id number] GABRIEL Pineda IGRATION_ DEFAULT_1 _1 , 12/20/2021 00:00:00 01/15/2022 22:33:55 [id number] MD MEGHA [facility] [place] [address] [place] [address] 12/28/2021 00:00:00 12/28/2021 11:10:02 [id number] MD TIARA Dickson [facility] [place] [address] [place] [address] 01/18/2022 00:00:00 01/18/2022 16:24:34 [id number] MD TIARA Gonz[facility] [place] [address] [place] [address] 01/25/2022 00:00:00 01/25/2022 15:00:07 [id number] MD TIARA Dickson [facility] [place] [address] [place] [address] 02/17/2022 00:00:00 02/17/2022 15:06:30 [id number] MD ANATOLY [facility]les[facility] [place] [address] [place] [address] 03/29/2022 00:00:00 03/29/2022 10:58:26 [id number] MD TIARA Dickson [facility] [place] [address] [place] [address] 05/12/2022 00:00:00 05/12/2022 14:21:01 [id number] GABRILE Pineda IGRATION_ DEFAULT_1 _1 , 05/16/2022 00:00:00 05/16/2022 16:50:12 [id number] Aditya Catherine MD [facility] [place] [address] [place] [address] 07/13/2022 00:00:00 07/13/2022 17:28:54 [id number] Aditya Catherine MD [facility] [address] [place] [address] 09/06/2022 00:00:00 09/06/2022 15:23:36 [id number] Aditya Catherine MD [address] [address] 10/11/2022 00:00:00 10/11/2022 17:27:53 [id number] Aditya Catherine MD [address] [address] 11/01/2022 09:46:21 11/01/2022 10:14:11 [id number] Aditya Catherine MD [address] [address] 11/08/2022 15:47:51 11/08/2022 16:30:48 Vitamin D deficiency 60870448 E55.9 Gout 04733127 M10.9 Hyperparathyroidism 6699 9008 E21.3 Uncontroll ed type 2 diabetes mellitus 419435326 E11.65 Hypertriglyceridemia 302 734562 E78.2 Hyperlipidemia 64070750 E78.5 Chronic constipation 236 710809 K59.09 Obesity 765188892 E66.9 [id number] Aditya Catherine MD [address] [address] 01/23/2023 09:08:48 01/23/2023 09:38:23 Bronchitis 53526205 J40 Cough 88920753 R05.9 Chronic ki dney disease stage 5 497095940 N18.5 Allergic rhinitis 352146 04 J30.9 Vitamin D deficiency 347 22379 E55.9 [id number] Aditya Catherine MD [address] [address] 06/27/2023 15:52:59 06/27/2023 16:15:54 Allergic contact dermatitis 661430063 L23.9 Tinea cruris 491334458 B 35.6 Administra tion of influenza vaccine 09023744 Z23 Chronic low back pain 27 1399717 M54.59 Gout 28186644 M10.9 [id number] Aditya Catherine MD [address] [address] 07/10/2023 15:50:39 07/10/2023 16:20:39 Vitamin D deficiency 29534059 E55.9 Gout 33876879 M10.9 Hyperparathyroidism 6699 9008 E21.3 Uncontroll ed type 2 diabetes mellitus 294134647 E11.65 Hypertriglyceridemia 302 493989 E78.2 Hyperlipidemia 21383545 E78.5 Chronic constipation 236 012120 K59.09 Obesity 721593902 E66.9 Bronchitis 26723988 J40 [id number] Aditya Catherine MD [address] [address] 12/07/2023 09:26:05 12/07/2023 11:06:01 Acute bacterial sinusitis 70701127 J01.90 Add humidifcat ion to bedroom at night [id number] Aditya Catherine MD [address] [address] 12/25/2023 15:06:36 12/25/2023 16:45:08 Gout 88791030 M10.9 Vitamin D deficiency 347 64935 E55.9 Hyperparathyroidism 6699 9008 E21.3 Uncontroll ed type 2 diabetes mellitus 232902323 E11.65 Hypertriglyceridemia 302 715628 E78.2 Hyperlipidemia 24247635 E78.5 Chronic constipation 236 594348 K59.09 Obesity 396694301 E66.9 Bron[address]itis 0[address]2718 J40 [address] [facility] th examination 042380430 Z00.00 Screening for disorder 973884392 Z13.9 Ulcer of mouth 76762935 K12.1 Screening for malignant neoplasm of prostate 584860429 Z12.5 [id number] Chris Linda DPM [facility] Pod[facility] [place] [address] [place] [address] 01/08/2024 11:55:29 01/11/2024 12:25:06 Onychomycosis of toenails 921605945 B35.1 educated on conditiont opical antifungal Rxfollow-u p in 1-2 months Blister of toe without infection 13759060 S90.424A right 3rd toeMonitor for infection dailyBetad ine wet-to-dry dressings dailyfollo w-up 1 week Diabetic p eripheral neuropathy 970754761 E11.40 Patient educated on neuropathy , diabetes, diabetic diet, and daily foot exams. Patient is to check feet daily for new wounds, blisters, redness to prevent infection and ulceration s to the feet. Patient will return to clinic in 3 months for diabetic foot workup. Dystrophia [place] 39604 009 L60.3 nails debrided without incident [id number] Aditya Catherine MD [facility]_[address] [address] 02/15/2024 10:01:48 02/15/2024 10:47:11 Gout 93332422 M10.9 Vitamin D deficiency 347 01757 E55.9 Hyperparathyroidism 6699 9008 E21.3 Uncontroll ed type 2 diabetes mellitus 518714637 E11.65 Hypertriglyceridemia 302 064660 E78.2 Hyperlipidemia 10055946 E78.5 Chronic constipation 236 790296 K59.09 Obesity 902024250 E66.9 Bronchitis 37913170 J40 Folliculitis 57060810 L7 3.9 Seborrheic dermatitis of scalp 052550619 L21.0 Pain of ri ght knee joint 3852582705 28431 M25.561 Bleeding of ear canal 30 6803448 H92.22 [id number] Rohit Jessica MD [facility] [place] [address] [place] [address] 02/15/2024 15:35:10 02/16/2024 12:44:58 Acute left otitis media 316310920 H66.92 [id number] Chris Linda DPM [facility] Pod[facility] [place] [address] [place] [address] 03/11/2024 12:07:37 03/12/2024 16:35:57 Blister of foot without infection 4030201 S90.821A right foot medial 1st metatarsop halangeal jointofflo adingwound care daily until healedfoll ow-up 10 days Blister of toe without infection 67908792 S90.425A left 4th toetriple antibiotic ointment and Band-Aid appliedwou nd care as above Diabetes mellitus 443916 09 E13.9 Continue diabetic control per PCP recommenda tion Diabetic p eripheral neuropathy 862225078 E11.40 Patient educated on neuropathy , diabetes, diabetic diet, and daily foot exams. Patient is to check feet daily for new wounds, blisters, redness to prevent infection and ulceration s to the feet. Patient will return to clinic in 3 months for diabetic foot workup.con tinue diabetic shoe gear Dystrophia [place] 19876 009 L60.3 nails debrided without incident [id number] Aditya Catherine MD [facility]_[address] [address] 04/16/2024 16:08:23 04/16/2024 17:22:18 Thoracic back pain 361099134 M54.6 Pain of ri ght shoulder blade 437185223 M25.511 Degenerati on of thoracolumbar intervertebral disc 41319279 M51.35 Hypothyroidism 97929886 E03.9 Obesity 608519349 E66.9 End stage renal failure on dialysis 333543582 N18.6 Chronic low back pain 27 8344408 M54.59 [id number] Chris Linda DPM [facility] Pod[facility] [place] [address] [place] [address] 05/02/2024 10:29:22 05/20/2024 11:32:52 Onychomycosis of toenails 326105634 B35.1 right great toenailsch eduled total nail avulsionRe viewed treatment optionsFol low-up for procedure Right great toenail avulsion scheduled 07/15/2024 Peripheral venous insufficiency 95488668 I87.2 Rx compressio n stockings 20 30 mm Hgelevatio n when at restmonito r for signs of DVT at present seek medical attention immediatel y Dystrophia [place] 80236 009 L60.3 nails debrided without incident Abrasion a nd/or friction burn of skin 791522314 T14.8XXA healed abrasions x4 left lower leg Diabetic p eripheral neuropathy 243166055 E11.40 Patient educated on neuropathy , diabetes, diabetic diet, and daily foot exams. Patient is to check feet daily for new wounds, blisters, redness to prevent infection and ulceration s to the feet. Patient will return to clinic in 3 months for diabetic foot workup.con tinue diabetic shoe gear [id number] Aditya Catherine MD [place] [address] 05/07/2024 09:01:36 05/07/2024 09:40:15 Gout 88013731 M10.9 Vitamin D deficiency 347 25334 E55.9 Hyperparathyroidism 6699 9008 E21.3 Uncontroll ed type 2 diabetes mellitus 772360016 E11.65 Hypertriglyceridemia 302 049720 E78.2 Hyperlipidemia 91106667 E78.5 Chronic constipation 236 569334 K59.09 Obesity 699376506 E66.9 Pain of ri ght knee joint 9197030116 72427 M25.561 Chronic Screening for malignant neoplasm of prostate 033395366 Z12.5 Chronic back pain 894651 002 G89.29 Screening colonoscopy 44 4716414 Z12.11 [id number] Dimitrios Cabrera MD [facility] [place] [place] [address] [place] [address] 05/10/2024 10:46:13 05/10/2024 11:48:23 Pain of right knee joint 0700802304 75681 M25.561 Bilateral osteoarthritis of knees 8235425451 09553 M17.0 Pain of le ft knee joint 7808028418 78207 M25.007 [id number] Aditya Catherine MD [address] [address] 05/21/2024 15:45:57 05/21/2024 16:21:32 Gout 80876333 M10.9 Vitamin D deficiency 347 99860 E55.9 Uncontroll ed type 2 diabetes mellitus 781369801 E11.65 Hypertriglyceridemia 302 894970 E78.2 Hyperlipidemia 03452517 E78.5 Chronic constipation 236 259064 K59.09 Obesity 099055065 E66.9 Pain of ri ght knee joint 4546675804 71885 M25.561 Chronic Chronic back pain 514097 002 G89.29 [id number] Dimitrios Cabrera MD [facility] [place] [address] [place] [address] 06/21/2024 11:06:53 06/21/2024 11:57:45 Bilateral osteoarthritis of knees 1162938660 71343 M17.0 Pain of ri ght knee joint 7119233630 68417 M25.561 Pain of le ft knee joint 4253445998 47909 M25.562 Pain of ri ght hip joint 3531750129 46552 M25.551 Trochanter ic bursitis of right hip 6938935895 92544 M70.61 [id number] Aditya Catherine MD [address] [address] 07/15/2024 10:53:35 07/15/2024 12:16:54 Chronic constipation 640581880 K59.09 Chronic back pain 411822 002 G89.29 Obesity 678819696 E66.9 [facility]en in [facility] 048654164 Z76.89 Gallstone 699768853 K80. 20 Right flank pain 3565267 09 R10.9 Kidney stone 82814868 N2 0.0 Rt Impaired mobility 215050 05 Z74.09 Due to pain [id number] Aditya Catherine MD [address] [address] 08/27/2024 14:12:33 08/27/2024 14:51:01 Right flank pain 784601167 R10.9 Kidney stone 82798992 N2 0.0 Rt Gallstone 350565852 K80. 20 Chronic constipation 236 570154 K59.09 Chronic back pain 395929 002 G89.29 Impaired mobility 885757 05 Z74.09 Due to pain Obesity 946904224 E66.9 Hospital i npatient stay within past 30 days 2069995504 106 Z76.89 Gout 06203323 M10.9 Gastroesop hageal reflux disease without esophagitis 045948040 K21.9 End-stage renal disease 98585597 N18.6 History of deep vein thrombosis 989616313 Z86.718 Hyperlipidemia 31703836 E78.5 Hypertriglyceridemia 302 181296 E78.2 [id number] Milly Hidalgo NP [facility] Pulmonolo [facility] [place] [address] [facility] [address] [place] [address] 10/31/2024 10:42:36 10/31/2024 12:31:33 Dyspnea on exertion 40879678 R06.09 Most likely cardiac related-wi ll do r/o for pulmonaryL ab work todayCAT-2 3Mmrc-3PFT for baselineAw are to use Albuterol inhaler as needed-ok to use when sobEncoura ge patient to remain activefoll ow-up once testing is complete-s ooner for any changes in breathing and increase use of inhaler Multiple n odules of lung 884275045 R91.[address] findings from [...] sob Body mass index 30+ - obesity 478403580 Z68.37 [id number] Aditya Catherine MD [facility]_[address] [address] 11/18/2024 11:23:35 11/18/2024 12:04:29 Bronchitis 93971126 J40 Cough 76347928 R05.9 Seborrheic dermatitis of scalp 473751976 L21.0 End-stage renal disease 10698129 N18.6 Atrial fibrillation 4943 6004 I48.91 [id number] Milly Hidalgo NP [facility] Pulmonolo gy [place] [address] [facility] [address] [place] [address] 12/25/2024 11:09:40 12/27/2024 07:59:25 Chronic obstructive pulmonary disease 88237040 J44.9 R06.09 Will start Serevent and use discussed- I do feel most of the dyspnea upon exertion is related to other chronic health issuesPFT: pre-FEV1 2.57, 69%, FVC3.23 L 67%, FEV1/FVC [...] shows obstructiv e process, severe diffusion impairment CAT-27Mmrc -3Use Albuterol inhaler as neededRevi ewed labs from last year-no eosinophil s-will resend rest of lab requestHad CT of chest in ER-noted infiltrati on and fuidEncour age to maintain vaccines when dueF/u with PMD for any new labsF/u with me in 3 months- use-will call if needs Albuterol (has some at home)Aware to call if any changes in symptoms or increase in use of Albuterol- severe symptoms ER Dyspnea on exertion 6084 5006 R06.09 Most likely cardiac related-pf t was done post thoracente sis-Lab work reordered todayCAT-2 7Mmrc-3PFT for baselineAw are to use Albuterol inhaler as needed-ok to use when sobEncoura ge patient to remain activefoll ow-up once testing is complete-s ooner for any changes in breathing and increase use of inhaler Persistent atrial fibrillation [id number] I48.19 sent to ER due to symptomati c with afibcontin ue care with [facility] Congestive heart failure [id number] I50.9 [id number] Aditya Catherine MD [facility]_[address] [address] 01/20/2025 14:50:48 01/20/2025 15:25:41 Eruption of skin of penis [id number] R21 Superficia l folliculitis [id number] L73.9 [id number] Stephie Herron NP [facility]_[address] [address] 02/26/2025 10:59:00 02/26/2025 12:02:01 Atrial fibrillation [id number] I48.91 takes warfarin, changed to lovenox in anticipati on of colonoscop y, but procedure was postponed and he resumed warfarin, most recent INR was 8 and he could not reach the cardiologi stpaused warfarin and ate greens and [facility], due to check today at home, he does inr at homeobtain inr and call me back Bilateral osteoarthritis of knees [id number] 94910 M17.0 knees are bruised with superficia l laceration s (road rash), very sorewill address pain meds and watch and wait, may take 6-8 weeks to feel better, hx of severe arthritis already affection mobilityen courage to use walker not cane for stability 2/2 to increasing number of falls Hang nail [id number] L03.01 1 local soap and water to digitapply ointmentif worsening call backtrying to avoid oral antibx that will affect warfarin Hematoma [id number] T14.8 XXA 5 x 3 cm hematoma and bruising to the left flank from previous fallwill monitory closely for signs of infections ee dr catherine in one month for follow up of hematomato ER if signs of infection or worsening hematoma Blood in urine [id number] R31.9 discussed blood in urine may be related to elevated INR as well as ckdnot currently worseningi f worsening it truly becomes emergency and go to ER [id number] [facility]idalgo [facility] [place] [address] [phone] 03/06/2025 10:24:11 03/06/2025 13:12:29 Chronic obstructive pulmonary disease [id number] J44.9 Do to increased sob and PFT [...] rest of lab workCT utd-last done in [facility] e to maintain [...] None Recorded Advance Directives Directive N: Payers Insurance Date Sequence Insurance Name Policy Number Policy Ge Covered Member ID Ge Member ID Guarantor Name 02/26/2025 1 [employer] (MEDICARE REPLACEMENT/A DVANTAGE - PPO) [id number] Juvenal Daigle [id number] Juvenal Daigle Jr 03/06/2025 1 [facility] (MEDICARE REPLACEMENT/A DVANTAGE - PPO) [id number] Juvenal Daigle [id number] Juvenal Daigle Jr 02/26/2025 1 [facility] [id number] Juvenal Daigle [id number] Juvenal Daigle Jr 02/26/2025 1 [place] Juvenal Daigle [id number] Juvenal Daigle Jr 03/06/2025 2 [place]CON[place] WHEN MEDICARE OR MEDICARE REPLACEMENT PRIMARY) Juvenal Daigle [id number] Juvenal Daigle Jr Notes Date Note Type Note Provider Name and Address Organization Details Recorded Time 11/18/2024 text/html ACV: C/o cough, congestion, fatigue, chest pain with deep inspiration for last 2-3 days. Pt denies any known sick contact. Pt has been doing otc meds, but not getting better. Pt doesn't want to go to ED for this. Aditya Catherine MD [address], [place], [address], [employer] 11/18/2024 12:26:41 12/25/2024 text/html COPDReported bypatient.Severity: severe; uses nebulizer/inhaler an average of 7-8 times/week lately Onset/Timing:chroni c: slowly much worse Modifying Factors:relieved with rest; relieved with bronchodilator; worse with exertion Associated Symptoms:no arousals from sleep; no dyspnea; no decrease in exercise capacity; no coughing up sputum; no cough; no fever; no wheezing; no weight loss; no depression;snoring; excessive daytime sleepiness;decrease in exercise capacity;fatigueNot es:patient admitted to [facility] 11/22/24 for pleural effusion and pneumonia-he had a thoracentesis with 1 liter taken off-he notes the past 3-4 days he has had increased dizziness, sob and weakness-he has a hx of peritoneal dialysis. chf and a-fibhe is here for follow-up for testing-pft was complete-he did not have some done due to cost of lab work and asked for different coding Milly Hidalgo NP [address], [place], [address], [employer] 12/26/2024 09:21:57 01/20/2025 text/html ACV: C/o rash over his shaft of penis for last 1 week, scratching and itching ++. Denies any discharge/insect bite. No intercourse for last 5-6 yrs. Aditya Catherine MD [address], [place], [address], [employer] 01/20/2025 15:27:39 02/26/2025 text/html here today for b ack pain, knee pain, and infected fingerfell about a week ago, he did not lose consciousness, his knees just gave out, has hx of arthritis and has fallen in the pastfeels his knees are worseningalso having back spasms that are since he fell, tingling down both legs feels his urine outflow is worse since his fall but he has kidney disease and sees nephrology, has had incontinence in the pastPD dialysis machine at home nightly has noticed blood in the urine but was noticing that before he fell has hx of kidney stoneshas hx of afib and clots, taking warfarin, checks inr at home and INR was 8 at or around the time of fall Stephie Herron NP [address], [place], [address], [employer] 02/26/2025 12:06:49 03/06/2025 text/html COPDReported bypatient.Severity: moderate Onset/Timing:interm ittent Modifying Factors:worse with exertion Associated Symptoms:no snoring; no excessive daytime sleepiness; no arousals from sleep; no decrease in exercise capacity; no coughing up sputum; no cough; no fever; no wheezing; no weight loss; no depression;dyspnea exertional;decrease in exercise capacity;fatigueNot es:notes the past month has had increased episodes of feeling tightness and more sob with exertion-he notes he was not sure if he could use his rescue inhaler-this occurs about 2-3 times a week. He notes his afib has been better controlled and doesn't feel that is the cause.He is still using his BiPap Milly Hidalgo NP [address], [place], [address], [employer] 03/06/2025 11:19:56
[2025-03-06 18:09] LABS: Hematocrit 34.0 % (42.0-52.0); Hemoglobin 11.0 g/dL (14.0-18.0); Immature Granulocyte Percent A 0.7 % (0-0.5); Lymphocytes Absolute Auto 1.26 K/mm3 (0.9-3.2); Mean Corpuscular HGB Conc 32.4 g/dl (32-36); Mean Corpuscular Hemoglobin 29.4 pg (26-34); Mean Corpuscular Volume 90.9 fl (80-100); Nucleated Red Blood Cells Absolute Auto 0.000 K/mm3 (0.0-0.012); Nucleated Red Blood Cells Perc 0.0 % (0.0-0.2); Platelet Count Result 202 k/mm3 (150-375); Red Blood Count 3.74 M/mm3 (4.6-6.20); White Blood Count 4.4 K/mm3 (4.5-10.0)
[2025-03-06 18:21] VITALS: BP 124/76; PULSE 97; RESP 20; O2SAT 94
[2025-03-06 18:22] LABS: INR 2.6; Prothrombin Time 27.6 Seconds (11.1-14.7)
[2025-03-06 18:23] LABS: Partial Thromboplastin Time 42.7 Seconds (22.3-36.8)
[2025-03-06 18:33] VITALS: PULSE 107; RESP 20; O2SAT 97
[2025-03-06] MEDS: cefTRIAXone 2 GM in SODIUM CHLORIDE 0.9% IV 100 ML 200 ML IVPB (18:46)
[2025-03-06 18:51] LABS: Alanine Aminotransferase 24 U/L (6-50); Albumin Level 3.6 g/dL (3.5-5.1); Alkaline Phosphatase 92 U/L (38-126); Anion Gap 13 mmol/L (4-12); Aspartate Amino Transferase 40 U/L (17-59); Bilirubin,Total 0.6 mg/dL (0.2-1.3); Blood Urea Nitrogen 39 mg/dL (9-20); Calcium 9.1 mg/dL (8.4-10.2); Carbon Dioxide 26 mmol/L (22-30); Chloride 92 mmol/L (98-107); Estimated CRCL calculation 11 ml/min; Estimated Glomerular Filt Rate 6; Glucose 290 mg/dL (65-110); Potassium 4.1 mmol/L (3.4-5.0); Sodium 131 mmol/L (137-145); Total Protein 6.8 g/dL (6.3-8.2)
== END 2025-03-06 19:30 | disposition home or self-care (01) ==
PROVIDERS: Family Medicine; Emergency Provider Nurse Practitioner Adult Health; PCP Family Medicine
DX: N39.0 Urinary tract infection, site not specified (principal); E10.22 Type 1 diabetes mellitus with diabetic chronic kidney disease; I13.2 Hypertensive heart and chronic kidney disease with heart failure and with stage 5 chronic kidney disease, or end stage renal disease; I50.9 Heart failure, unspecified; N18.6 End stage renal disease; Z99.2 Dependence on renal dialysis; N25.0 Renal osteodystrophy; I48.0 Paroxysmal atrial fibrillation; I82.531 Chronic embolism and thrombosis of right popliteal vein; N25.81 Secondary hyperparathyroidism of renal origin; I25.10 Atherosclerotic heart disease of native coronary artery without angina pectoris; D63.1 Anemia in chronic kidney disease; E10.319 Type 1 diabetes mellitus with unspecified diabetic retinopathy without macular edema; E10.42 Type 1 diabetes mellitus with diabetic polyneuropathy; E78.5 Hyperlipidemia, unspecified; K21.9 Gastro-esophageal reflux disease without esophagitis; M10.9 Gout, unspecified; M19.90 Unspecified osteoarthritis, unspecified site; F41.9 Anxiety disorder, unspecified; Z95.5 Presence of coronary angioplasty implant and graft; Z95.1 Presence of aortocoronary bypass graft; Z96.1 Presence of intraocular lens; Z98.49 Cataract extraction status, unspecified eye; K80.20 Calculus of gallbladder without cholecystitis without obstruction; Z79.4 Long term (current) use of insulin; Z79.82 Long term (current) use of aspirin; Z79.01 Long term (current) use of anticoagulants; Z79.899 Other long term (current) drug therapy
CPT/HCPCS: 36415; 74176; 80053; 81001; 83605; 85025; 85610; 85730; 96365; 99284; J0696

== ENCOUNTER 2025-03-14 11:41 | Emergency (ER) | payer MEDICARE, MEDICAID, SELFPAY ==
--- NOTE | ~2025-03-14 | XR_ITS ---
EXAM/ PROCEDURE: XR hand RT min 3V - 03/14/2025 12:30 CDT HISTORY: 54 years old Male with R ring finger injury COMPARISON: None available TECHNIQUE: Three view(s) FINDINGS/ IMPRESSION: There are no fractures or dislocations.Joint space narrowing, subchondral sclerosis, subchondral cyst formation and osteophyte formation, compatible with mild osteoarthritis. Atherosclerotic calcificati ons are seen. Reviewed, dictated and finalized at location A.
--- OUTSIDE RECORDS SUMMARY | 2025-03-14 11:44 | XMS_ITS | Encounter Summary ---
Author Organization [facility] Address [address] [facility] [place] [address] Care Team Providers Care Warehouse Distribution Specialist Name Role Phone Aditya Castro Primary Care Provider Cas le Encounter Details Date Type Department Care Team (Latest Contact Info) Description 03/13/2025 Travel Social History Tobacco Use Types Packs/Day Years Used Date Smoking Tobacco: Never Passive Smoke Exposure: Past Smokeless Tobacco: Never Alcohol Use Standard Drinks/Week Comments Not Currently 0 (1 standard drink = 0.6 oz pur e alcohol) 35 years ago Sex and Gender Information Value Date Recorded Sex Assigned at Not on file Legal Sex Male 5:33 AM [employer]AL[employer] Gender Identity Not on file Sexual Orientation Not on file documented as of this encounter Plan of Treatment Upcoming Encounters Date Type Department Care Team (Latest Contact Info) Description 03/17/2025 7:20 AM CDT Hospital Encounter [facility] - Perioperative Surgery [address] [place] [id number] [place] [address] [facility] [address] [place] [phone] Surgery General 03/17/2025 7:20 AM CDT - 03/17/2025 8:43 AM CDT Surgery [facility] - Perioperative Surgery [address] [place] [id number] [place] [address] [facility] [address] [place] [phone] LEFT UPPER ARM ARTERIOVENOUS FISTULA 03/17/2025 7:30 AM CDT Procedure visit [facility] - Surgery [address] [place] [address], [address] [address] Abelardo Meyers MD [address] [place] [phone] 03/31/2025 10:20 AM CDT Office Visit [facility] Surgery [address] [place] [address], [address] [phone] Abelardo Meyers MD [address] [place] [phone] Scheduled Procedures Name Priority Associated Diagnoses Date/Ti me CREATION ARTERIOVENOUS (AV) FISTULA DIRECT 03/17/2025 7:20 AM C DT documented as of this encounter Visit Diagnoses Not on filedocumented in this encounter Care Teams Warehouse Distribution Specialist Relationship Specialty Start Date End Date Aditya Castro Update Information PCP - General 03/06/19 documented as of this encounter
--- OUTSIDE RECORDS SUMMARY | 2025-03-14 11:44 | XMS_ITS | Encounter Summary ---
Author Organization [facility] Address [address] [place] [address] Phone Care Team Providers Care Apprentice/Lineman Name Role Phone Unavailable Primary Care Provider Unavailabl e Reason for Visit * Reason Comments Med Refill Encounter Details Date Type Department Care Team (Late st Contact Info) Description 01/25/2019 Refill [facility] [address] [facility] [address] [place] [address] Leandro Reyes MD [address] [facility] 1 [place] [address] Social History Tobacco Use Types [...]
--- OUTSIDE RECORDS SUMMARY | 2025-03-14 11:44 | XMS_ITS | Referral Summary ---
Author Organization [facility] Address [address] [place] [address] Care Team Providers Care Regulated Program Manager Name Role Phone Aditya Castro MD Primary Care Provider [phone] Alondra Lambert RN Unavailable [phone] Shannon Brock MD, [place] P. Unavailable [phone] Leandro Reyes MD Unavailable [phone] Encounters Date Type Department Care Team Description 02/20/2025 Telephone [facility] Transplant Kidney 4590 [facility] [address] [place] [address] [phone] [place] [address] Alondra Lambert RN 02/20/2025 Telephone [facility] Transplant Kidney 4590 [facility] [address] [place], [place] [address] [phone] [place] [address] Alondra Lambert RN 02/13/2025 Telephone Cardiovascular and Thoracic Surgery 3023 [facility] [address] [place] [address] Lorne Mcnulty MD Med Refill from Last 3 Months Allergies Active Allergy [...] PUMP: Continue Omnipod 5 insulin pump with FUELUP G6 CGM at home settings: TIME BASAL [...] 1 tablet (25 mcg total) by mouth personal banking advisor before breakfast 30 tablet 1 11/04/19 [...] mg SL tablet 12/28/19 18 Active peg 500-susnlwnwcnye-qp ycerin (ARTIFICAL TEARS) 1-0.2-0.2 % ophthalmic solution 1 drop 4 (four) times a day 07/07/20 22 Active potassium chloride ER 20 mEq CR tablet Active Active Problems Problem Noted Date Diagnosed Date End stage renal disease 07/29/2024 Nonrheumatic aortic valve stenosis 11/22/2023 Status post aortic valve replacement 11/22/2023 Status post coronary artery bypass grafting 10/2023 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 Tolerated well and nephrology following - Trialysis catheter removed - Continue vitamins for renal bone mineral disease. Assessment & Plan (06/28/2022 3:29 PM DEER FARM WORKER): - Renal consulted, s/p CRRT in the [...] 06/22/2022 Assessment & Plan (06/29/2022 10:12 AM DEER FARM WORKER): C/b cardiogenic shock requiring impella in the setting of cath and AHRF 2/2 pulmonary edema, now resolved. TTE demonstrating recovered EF 65% with grade I diastolic dysfunction. - metop as above - continue low dose losartan 12.5mg daily, ok per nephro. Tolerating well - volume management per PD Assessment & Plan (06/28/2022 3:29 PM DEER FARM WORKER): C/b cardiogenic shock requiring impella in the [...] 06/22/2022 Assessment & Plan (06/29/2022 10:12 AM DEER FARM WORKER): Converted to NSR overnight on 06/24. CHADsVASc of 4 not on anticoagulation prior to admission. - cardiology consulted - recommended ongoing rate control - holding off on a/c with high risk for bleeding while on DAPT - reduced metop to 25mg BID in the setting of hypotension, HR 70s NSR Assessment & Plan (06/28/2022 3:30 PM DEER FARM WORKER): Converted to NSR overnight on 06/24. CHADsVASc [...] 08/22/2021 Assessment & Plan (06/29/2022 10:11 AM DEER FARM WORKER): With recurrent chest pain post-cath. He has [...] today Assessment & Plan (06/28/2022 3:30 PM DEER FARM WORKER): With recurrent chest pain post-cath. He has [...] 06/22/2022 Assessment & Plan (06/29/2022 10:11 AM DEER FARM WORKER): Secondary to NSTEMI, s/p Impella since removed on 06/10. Resolved. Assessment & Plan (06/23/2022 4:55 PM CDT): Secondary to NSTEMI, s/p Impella since removed on 06/10. Resolved. Assessment & Plan (06/22/2022 8:22 PM CDT): -Secondary to NSTEMI, s/p Impella since removed on 06/10. 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 He uses [...] session Assessment & Plan (06/28/2022 3:28 PM DEER FARM WORKER): A1c well controlled on admission. He uses [...] materials from doctor or pharmacy Never 12/01/2023 [facility] Utilities Answer Date Recorded [...] week 08/01/2024 How often do you attend rastafarian or sabianist serv ices? Never 08/01/2024 Do [...] any time in the past 12 m [facility], were you homeless or living in a penitentiary (including now)? No 08/01/2024 Personal Safety Answer Date Recorded Have you ever been in or are you currently in a harmful physical or emotional relationship or is someone making you feel afraid or unsafe? 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 Male 3:42 AM DEER FARM WORKER Gender Identity Not on file Sexual Orientation Not on file Last Filed Vital Signs Vital Sign Reading Time Taken Comments Blood Pressure 122/75 07/29/2024 1:00 PM DEER FARM WORKER Pulse 116 07/29/2024 1:00 PM DEER FARM WORKER Temperature 36.8 C (98.2 F) 07/29/2024 1:00 PM DEER FARM WORKER Respiratory Rate 16 12/01/2023 11:1 3 AM CDT Oxygen Saturation 96% 12/01/2023 11: 13 AM CDT Inhaled Oxygen Concentration - - Weight 121.2 kg (267 lb 1.6 oz) 07/29/2024 1:00 PM DEER FARM WORKER Height 177.8 cm (5' 10) 07/29/2024 1:00 PM DEER FARM WORKER Body Mass Index 38.32 07/29/2024 1:00 PM DEER FARM WORKER Plan of Treatment Not on file Medical Devices Implanted Type Area Career Resource Specialist Device Identifier Shelf Expiration Date Model / Serial / Lot Kyle Vascular Device Clsr Perclose Prostyle Sut-Mediatd Closure-Repair Sys 03201-26 - [id number] Implanted:Qty: 1 on 06/10/2022 by Champ Osborne MD PhD at [facility] Other - see comments Right: Femoral Kyle Vascular 01/19/202485631-11 [employer] Mary Synergy Xd Monorail 2.5mm 48mm 144cm Delivery System 1 Access [id number] - [id number] Implanted:Qty: 1 on 06/07/2022 by Champ Osborne MD PhD at [facility] Stent [employer] Mary 10/27/2023 [id number] / / [id number] [employer] Mary Synergy Xd Monorail 3mm 24mm 144cm Delivery System 1 Access Port [id number] - [id number] Implanted:Qty: 1 on 06/07/2022 by Champ Osborne MD PhD at [facility] Stent [employer] Mary 07/28/2023 [id number] / / [id number] [employer] Mary Synergy Xd Monorail 2.5mm 12mm 144cm Delivery System 1 Access [id number] - [id number] - [id number] Implanted:Qty: 1 on 06/07/2022 by Champ Osborne MD PhD at [facility] Stent [employer] Mary 05/03/2023 [id number] / [id number] / [id number] Daig Mary [id number] Device Closure Angio-Seal Vip Bondek-Plus Polyglyd L70 Cm Od6 Fr Odsec.035 In Vascular - [id number] Implanted:Qty: 1 on 01/21/2021 by Hamlet Ortega Jr., MD at [facility] Left: Groin [employer] Mary [id number] / / Kyle Vascular Device Clsr Perclose Prostyle Sut-Mediatd Closure-Repair Sys 77804-88 - [id number] Implanted:Qty: 1 on 06/07/2022 by Champ Osborne MD PhD at [facility] Kyle Vascular 01/19/2024 [id number] / / [id number] Kyle Vascular Device Clsr Perclose Prostyle Sut-Mediatd Closure-Repair Sys 16705-21 - [id number] Implanted:Qty: 1 on 06/07/2022 by Champ Osborne MD PhD at [facility] Kyle Vascular 11/19/2023 [id number] / / [id number] Bard Access Systems Power-Trialysis 13fr 30cm 3 Lumen Kink Resistance Symmetric Tip [id number] - [id number] Implanted:Qty: 1 on 06/07/2022 by Champ Osborne MD PhD at [facility] Right: Jugular Ramirez Chapito 07/20/2024 [id number] / / [id number] [employer] Impella Cp Percutaneous Left Ventricular Assist Device 6783-6227 - [id number] Implanted:Qty: 1 on 06/07/2022 by Champ Osborne MD PhD at [facility] Left: Ventricle [employer] Inc [id number] / / Bard Access Systems Power-Trialysis 13fr 20cm 3 Lumen Short Term Dialysis Straight [id number] - [id number] Implanted:Qty: 1 on 06/18/2022 at [facility] Ramirez Chapito 07/20/2024 [id number] / / [id number] Rl Biomet Inc Screw Bone Slf Drl Full Thread Locking 3.5x14mm Ti 100.035.14 - [id number] Implanted:Qty: 6 on 10/17/2023 by Lorne Mcnulty MD at [facility] N/A: Sternum [employer]l [employer] Inc 100.035.1 4 / / Rl Biomet Inc Plate Bone Low Profile 6 Hole H Shape Sternum Ti 115.102.06 - [id number] Implanted:Qty: 2 on 10/17/2023 by Lorne Mcnulty MD at [facility] N/A: Sternum [employer]l [employer] Inc 115.102.0 6 / / Rl [employer] Plate Bone Low Profile 6 Hole O Shape Sternum Ti 115.104.06 - [id number] Implanted:Qty: 1 on 10/17/2023 by Lorne Mcnulty MD at [facility] N/A: Sternum [employer]l [employer] Inc 115.104.0 6 / / On-X Intrnl Valve Coronary Aortic Mechanical On X 25mm Onxane-25 - [id number] - [id number] Implanted:Qty: 1 on 10/17/2023 by Lorne Mcnulty MD at [facility] N/A: Heart On-X Intrnl 01/22/2028 ONXANE-25 / [id number] / Rl [employer] Inc Screw Bone Slf Drl Full Thread Locking 3.5x18mm Ti 100.035.18 - [id number] Implanted:Qty: 12 on 10/17/2023 by Lorne Mcnulty MD at [facility] N/A: Sternum Rl [employer] Inc 100.035.1 8 / / Explanted Type Area Career Resource Specialist Device Identifier Shelf Expiration Date Model / Serial / Lot Bard Peripheral Vascular Bard .25x.25in [place] Thk1.65mm Square Pledget Cardiovascular Ptfe [id number] - [id number] Explanted:Qty: 1 on 10/17/2023 by Lorne Mcnulty MD at [facility] N/A: Heart Bard Peripheral Vascular 05/18/2026 [id number] / / Procedures Procedure Name Priority Date/Time Associated Diagnosis Comments HEPATITIS C ANTIBODY Routine 07/29/2024 11:01 AM DEER FARM WORKER End stage renal disease (HCC) EGFR Routine 07/29/2024 11:01 AM DEER FARM WORKER End stage renal disease (HCC) HEMOGLOBIN A1C Routine 07/29/2024 11:01 AM DEER FARM WORKER End stage renal disease (HCC) LIPID PANEL Routine 07/29/2024 11:01 AM DEER FARM WORKER End stage renal disease (HCC) PSA SCREEN Routine 07/29/2024 11:01 AM DEER FARM WORKER End stage renal disease (HCC) TSH Routine 10/27/2023 2:30 AM DEER FARM WORKER from Last 3 Months or Most Recently Relevant to Health Maintenance Results * (ABNORMAL) eGFR (07/29/2024 11:01 AM DEER FARM WORKER) eGFR 7(L) >=60 mL/min/1. 73 m2 [...] reviewed 2021. Blood 07/29/2024 11:0 1 AM DEER FARM WORKER 07/29/2024 11:33 AM DEER FARM WORKER us Jossie King MD LAB BLOOD ORDERABL ES Final Result [facility] [place] [address] * PSA screen (07/29/2024 11:01 AM DEER FARM WORKER) PSA-Total 0.55 <=3.90 ng/mL Comment: Interpretive [...] revised 21. Blood 07/29/2024 11:0 1 AM DEER FARM WORKER 07/29/2024 11:33 AM DEER FARM WORKER Narrative [facility] - 07/29/2024 12:39 PM DEER FARM WORKER This lab is being obtained as part of a Kidney transplant evaluation, is time sensitive, and should only be drawn during the evaluation visit at [address] Lab[address] Jossie King MD LAB BLOOD ORDERABL ES Final Result Performing Organization Address [facility] de Phone Number [facility] [place] [address] * Hepatitis C antibody Blood (07/29/2024 11:01 AM DEER FARM WORKER) [facility] Hep C Ab Nonreactive Nonreactive Comment:Antibodies to HCV no t detected. Does NOT exclude the possibility of recent exposure to HCV. Current interpretive data was last revised on 22 Blood 07/29/2024 11:0 1 AM DEER FARM WORKER 07/29/2024 11:32 AM DEER FARM WORKER Narrative [facility] - 07/29/2024 12:47 PM DEER FARM WORKER This lab is being obtained as part of a Kidney transplant evaluation, is time sensitive, and should only be drawn during the evaluation visit at [address] Jossie King MD LAB MICROBIOLOGY - GENERAL ORDERABLES Final Result Performing Organization Address [facility] de Phone Number [facility] [place] [address] * (ABNORMAL) Hemoglobin A1c (07/29/2024 11:01 AM DEER FARM WORKER) [facility] Hgb A1C 9.0(H) 4.0 - [...] fasting glucose. Blood 07/29/2024 11:0 1 AM DEER FARM WORKER 07/29/2024 11:34 AM DEER FARM WORKER Narrative ALESSANDRA [facility] - 07/29/2024 11:53 AM DEER FARM WORKER This lab is being obtained as part of a Kidney transplant evaluation, is time sensitive, and should only be drawn during the evaluation visit at [facility] Lab. Jossie King MD LAB BLOOD ORDERABL ES Final Result [facility] [place] [address] * (ABNORMAL) Lipid panel (07/29/2024 11:01 AM DEER FARM WORKER) Cholesterol 114 30 - 199 mg/dL Comment: [...] on 2018. LDL, calculated 71 <=129 mg/dL [facility] Comment: Interpretive Data Ages < or [...] last revised on 2018. Chol/HDL ratio 4 [facility] Blood 07/29/2024 11:0 1 AM DEER FARM WORKER 07/29/2024 11:33 AM DEER FARM WORKER Narrative [facility]DR[facility] - 07/29/2024 12:10 PM DEER FARM WORKER This lab is being obtained as part of a Kidney transplant evaluation, is time sensitive, and should only be drawn during the evaluation visit at [facility] Lab. us Jossie King MD LAB BLOOD ORDERABL ES Final Result [facility]ESS[facility]DR[facility] [place] [address] * (ABNORMAL) TSH (10/27/2023 2:30 AM DEER FARM WORKER) [employer] Signature Thyroid Stimulating Hormone 13.20(H) 0.30 - 4.20 mcIUnit/mL Blood 10/27/2023 2:30 AM DEER FARM WORKER 10/27/2023 2:42 AM DEER FARM WORKER Lorne Mcnulty MD LAB BLOOD ORDERABLES Final Result Performing Organization Address City/[facility]/ZIP Co de Phone Number [facility] [address] [place] [address] from Last 3 Months or Most Recently Relevant to Health Maintenance Insurance [facility] ADVANTAGE [facility] Address: [address] [address] [place] [address] [employer] [facility] MEDIC[facility] ADVANTAGE TRANSPLANT [employer] MEDICARE RISK IDPA TRANSPLANT [employer] MEDICARE RISK IDPA Advance Directives For more information, please contact: [phone] * Full Code (Latest Code Status on File) Date Activated Date Inactivated Comments 10/13/2023 11:32 PM 11/03/2023 11:42 PM * Full Code Date Activated Date Inactivated Comments 06/05/2022 6:17 AM 06/29/2022 6:20 PM * Full Code Date Activated Date Inactivated Comments 06/05/2022 4:43 AM 06/05/2022 4:43 AM * Full Code Date Activated Date Inactivated Comments 06/04/2022 9:55 PM 06/05/2022 4:43 AM Care Teams Regulated Program Manager Relationship Specialty Start Date End Date Aditya Castro MD [address] [place] [address] PCP - General 10/17/19 Alondra Lambert, RN [address] [address] Small Electric Engine Technician 03/06/24 Hamlet Ortega Jr., MD [address] [place] [address] Consulting Physician Cardiovascular Disease 05/10/24 Leandro Reyes MD 5[address] [facility] 1 [place] [address] Consulting Physician Nephrology 07/30/24
--- OUTSIDE RECORDS SUMMARY | 2025-03-14 11:44 | XMS_ITS | Continuity of Care Document ---
Author Organization [facility] Address [address] [place] [address] [place] [address] Phone Care Team Providers Care Design Eng Name Role Phone Carlos Garcia Unavailable Unavailable Advance Directives Directive Yes / No Effective Date File Name No Information Encounters Encounter Description Practice Location Reason(s) For Visit Diagnoses Date Provider Providers Copied on Encounter [facility], [address] [place] [address] [address], [place], [place], [id number], [place] tel:[phone] [facility] No Information Radha Gonzalez. [address] [place], [place], [facility], [place]. tel:[phone] Referring Provider: Yannick Remy, [facility] [facility] [address], [place], [place], [facility]. tel:[phone] Family History Family Member Type Diagnosis Age At Onset No Information Payers Payer name Insurance type Covered democrat ID Authoriza tion(s) Medicaid [facility] [id number] Social History Type Description Quantity Date Captured [...]
--- OUTSIDE RECORDS SUMMARY | 2025-03-14 11:44 | XMS_ITS | Encounter Summary ---
Author Organization [facility] Address [address], [place] [address] Phone Care Team Providers Care Electronic Console Display Operator Name Role Phone Unavailable Primary Care Provider Unavailabl e Reason for Visit * Reason Comments Med Refill Encounter Details Date Type Department Care Team (Late st Contact Info) Description 10/08/2019 Refill [facility] [address] [address] Leandro Reyes MD [address] [address] Social History Tobacco Use Types Packs/Day Years [...]
--- OUTSIDE RECORDS SUMMARY | 2025-03-14 11:44 | XMS_ITS | Clinical Summary ---
Author Organization [facility] Address [address] [place] [address] Care Team Providers Care Tobacco Stemmer Name Role Phone Aditya Castro MD Primary Care Provider [phone] Allergies Active Allergy Reactions Criticality Noted Date Comments Allopurinol Shortness of Breath/Wheezing,Othe r (See Comments) High 07/31/2019 Shuts my kidneys down per patient. Chlorhexidine Other (See Comments) High 06/29/2022 Skin peels all over and becomes tender Iodinated Contrast Media Rash High 07/10/2017 Ticagrelor Rash High 05/04/2017 Medications isosorbide mononitrate (IMDUR) 30 mg Extended Release 24 hour tablet Take 30 mg by mouth daily infection control coordinator. Active clopidogrel (PLAVIX) 75 mg Tablet Take [...] Take 50,000 Units by mouth. Active Insulin [place], Disposable, (TRUEPLUS PEN NEEDLE) 31 gauge x [...] (06/29/2022): Added automatically from request for surgery [id number] Right upper quadrant pain 09/24/2020 Pre-transplant evaluation for kidney transplant 03/24/2020 Overview (06/29/2022): Images from the original note were not included. Juvenal Daigle 1970 Referring Machine Stuffer Automatic: Leandro Reyes Dialysis Info: Type: PD Time: 160 days (11/05/2019) Blood Type: A Body mass index is 37.8 kg/m . ALERTS Medical Aides Teacher: Vashti Lizama NP Past Medical History: Diagnosis Date Anemia Arthritis Arthropathy osteo. back and knees see Dr. Norton CAD (coronary artery disease) Community acquired pneumonia 2017 [facility] hospitalized with double pneumonia Congestive heart failure Coronary artery disease Diabetes mellitus type 1 teens dx when he was 13. Insulin since he was dx. Insulin pump currently with dexacom. Vashti Lizama NP is welt insole channeler. DM (diabetes mellitus) TYPE 1 DVT (deep venous thrombosis) 2017 [facility]. ESRD on peritoneal dialysis Gout History of blood transfusion 2017 during admission for [place] HLD (hyperlipidemia) HTN (hypertension) Hypercholesteremia 5 years on med Hypertension 30's on medications. Kidney disease Myocardial infarction 2017 [facility]. Stent x1 placed. Neuropathy feet Obstructive sleep [...] Discussion Details: Pt brought to [facility] to discuss his cardiac workup. Team reviewed [...] Impression: It is the impression of this public health social worker that Juvenal Daigle has several [...] advised of safety concerns regarding immunosuppressants. Plan: grove worker to provide supportive services as needed. Patient appears to be a reasonable candidate for transplant from a psychosocial perspective. -Post transplant arrangement forms are needed prior to being listed. Psychiatric Consult Recommended: No Transplant Canary Raiser: Radha Roper LCSW RD:05/14/2020 BMI= 40.0, Class [...] 177.8 cm (5' 10) 06/29/2022 6:00 PM LICENSED SURVEYOR Body Mass Index 37.74 06/29/2022 6:00 PM LICENSED SURVEYOR Plan of Treatment Health Maintenance Due Date [...] Advance Directives For more information, please contact: [phone] * Full Code (Latest Code Status on File) Date Activated Date Inactivated Comments 06/29/2022 2:49 PM 07/08/2022 4:30 PM Care Teams Tobacco Stemmer Relationship Specialty Start Date End Date Aditya Castro MD PCP - General Student in an Organized Health Care Education/Training Program 09/11/18
--- OUTSIDE RECORDS SUMMARY | 2025-03-14 11:44 | XMS_ITS | Clinical Summary ---
Author Organization [facility] Address [address] [place] [address] Care Team Providers Care Physicist Astrophysics Name Role Phone Aditya Castro MD Primary Care Provider [phone] Alondra Lambert RN Unavailable [phone] Shannon Brock MD, Hamlet P. Unavailable [phone] Leandro Reyes MD Unavailable [phone] Allergies Active Allergy Reactions Criticality Noted Date [...] PUMP: Continue Omnipod 5 insulin pump with iTOKcom G6 CGM at home settings: TIME BASAL [...] 1 tablet (25 mcg total) by mouth leather sprayer before breakfast 30 tablet 1 11/04/19 24 [...] mg SL tablet 12/28/19 18 Active peg 368-xqyvqaxtduxe-vh ycerin (ARTIFICAL TEARS) 1-0.2-0.2 % ophthalmic solution 1 drop 4 (four) times a day 07/07/20 22 Active potassium chloride ER 20 mEq CR tablet Active Active Problems Problem Noted Date Diagnosed Date End stage renal disease 07/29/2024 Nonrheumatic aortic valve stenosis 11/22/2023 Status post aortic valve replacement 11/22/2023 Status post coronary artery bypass grafting 10/2023 CAD in [place]hal[place] artery 10/13/2023 Anemia 06/22/2022 Assessment & Plan (06/29/2022 10:12 AM DIRECTOR OF APPLICATION DEVELOPMENT): Stable, likely 2/2 anemia from ESRD, no [...] 06/22/2022 Assessment & Plan (06/29/2022 10:12 AM DIRECTOR OF APPLICATION DEVELOPMENT): - Renal consulted, s/p CRRT in the ICU now back on PD. Tolerated well and nephrology following - Trialysis catheter removed - Continue vitamins for renal bone mineral disease. Assessment & Plan (06/28/2022 3:29 PM DIRECTOR OF APPLICATION DEVELOPMENT): - Renal consulted, s/p CRRT in the [...] 06/22/2022 Assessment & Plan (06/29/2022 10:12 AM DIRECTOR OF APPLICATION DEVELOPMENT): C/b cardiogenic shock requiring impella in the setting of cath and AHRF 2/2 pulmonary edema, now resolved. TTE demonstrating recovered EF 65% with grade I diastolic dysfunction. - metop as above - continue low dose losartan 12.5mg daily, ok per nephro. Tolerating well - volume management per PD Assessment & Plan (06/28/2022 3:29 PM DIRECTOR OF APPLICATION DEVELOPMENT): C/b cardiogenic shock requiring impella in the [...] 06/22/2022 Assessment & Plan (06/29/2022 10:12 AM DIRECTOR OF APPLICATION DEVELOPMENT): Converted to NSR overnight on 06/24. CHADsVASc of 4 not on anticoagulation prior to admission. - cardiology consulted - recommended ongoing rate control - holding off on a/c with high risk for bleeding while on DAPT - reduced metop to 25mg BID in the setting of hypotension, HR 70s NSR Assessment & Plan (06/28/2022 3:30 PM DIRECTOR OF APPLICATION DEVELOPMENT): Converted to NSR overnight on 06/24. CHADsVASc [...] 08/22/2021 Assessment & Plan (06/29/2022 10:11 AM DIRECTOR OF APPLICATION DEVELOPMENT): With recurrent chest pain post-cath. He has [...] today Assessment & Plan (06/28/2022 3:30 PM DIRECTOR OF APPLICATION DEVELOPMENT): With recurrent chest pain post-cath. He has [...] 06/22/2022 Assessment & Plan (06/29/2022 10:11 AM DIRECTOR OF APPLICATION DEVELOPMENT): Secondary to NSTEMI, s/p Impella since removed on 06/10. Resolved. Assessment & Plan (06/23/2022 4:55 PM CDT): Secondary to NSTEMI, s/p Impella since removed on 06/10. Resolved. Assessment & Plan (06/22/2022 8:22 PM CDT): -Secondary to NSTEMI, s/p Impella since removed on 06/10. Acute hypoxemic respiratory failure 06/09/2022 Assessment & Plan (06/29/2022 10:12 AM DIRECTOR OF APPLICATION DEVELOPMENT): Secondary to ACS and flash pulmonary edema, [...] (06/10/2022): Added automatically from request for surgery [id number] Abnormal cardiovascular stress test 12/29/2020 Overview (12/29/2020): Added automatically from request for surgery [id number] Coronary artery disease of n ative artery of chehal[place] heart with stable angina pectoris ([facility]) 05/23/2017 History of coronary artery stent placement [...] 01/18/2013 Assessment & Plan (06/29/2022 10:12 AM DIRECTOR OF APPLICATION DEVELOPMENT): A1c well controlled on admission. He uses [...] session Assessment & Plan (06/28/2022 3:28 PM DIRECTOR OF APPLICATION DEVELOPMENT): A1c well controlled on admission. He uses [...] 02/20/2025 Telephone [facility] Transplant Kidney [address] [facility] [address] [employer] [phone] [place] [address] Alondra Lambert, LUAN 02/20/2025 Telephone [facility] Transplant Kidney [address] [facility] [address] [phone] [place] [address] Alondra Lambert, LUAN 02/13/2025 Telephone Cardiovascular and Thoracic Surgery [address] [facility] [address] [place] [address] Lorne Mcnulty MD Med Refill from Last 3 Months Immunizations Immunization Administration [...] doctor or pharmacy Never 12/01/[address] [facility] Utilities Answer Date Recorded In the past 12 months has e [employer]ily[employer], oil, or water [employer] threatened to shut off services in your [...] How often do you attend moravian or adventist serv ices? Never 08/01/2024 Do you belong [...] Legal Sex Male 3:42 AM DIRECTOR OF APPLICATION DEVELOPMENT Gender Identity Not on file Sexual Orientation Not on file Obstetrics History Last Filed Vital Signs Vital Sign Reading Time Taken Comments Blood Pressure 122/75 07/29/2024 1:00 PM DIRECTOR OF APPLICATION DEVELOPMENT Pulse 116 07/29/2024 1:00 PM DIRECTOR OF APPLICATION DEVELOPMENT Temperature 36.8 C (98.2 F) 07/29/2024 1:00 PM DIRECTOR OF APPLICATION DEVELOPMENT Respiratory Rate 16 12/01/2023 11:1 3 AM CDT Oxygen Saturation 96% 12/01/2023 11: 13 AM CDT Inhaled Oxygen Concentration - - Weight 121.2 kg (267 lb 1.6 oz) 07/29/2024 1:00 PM DIRECTOR OF APPLICATION DEVELOPMENT Height 177.8 cm (5' 10) 07/29/2024 1:00 PM DIRECTOR OF APPLICATION DEVELOPMENT Body Mass Index 38.32 07/29/2024 1:00 PM DIRECTOR OF APPLICATION DEVELOPMENT Plan of Treatment Health Maintenance Due Date [...] Additional history exists Lipid Panel 07/29/2025 07/29/2024, 2 01/2024, 06/05/2022, Additional history exists eGFR 07/29/2025 07/29/2024, 10/19, 11/02/2023, Additional history exists Prostate Cancer Screening-PSA 07/29/2026 07/29/2024 DTaP/Tdap/Td Vaccine (4 - Td or Tdap) 10/21/2029 10/22/2019, 09/02/2017, 08/30/2016 Hepatitis B Screening Completed 07/29/2024 Hepatitis C Screening Completed 07/29/2024 , 03/23/2017, 03/26/2015 Medical Devices Implanted Type Area Banquet Houseperson Device Identifier Shelf Expiration Date Model / Serial / Lot Kyle Vascular Device Clsr Perclose Prostyle Sut-Mediatd Closure-Repair Sys 58546-35 - [id number] Implanted:Qty: 1 on 06/10/2022 by Champ Osborne MD PhD at [facility] Other - see comments Right: Femoral Kyle Vascular 01/19/2024 [id number] / / [id number] [employer] Mary Synergy Xd Monorail 2.5mm 48mm 144cm Delivery System 1 Access [id number] - [id number] Implanted:Qty: 1 on 06/07/2022 by Champ Osborne MD PhD at [facility] Stent [employer] Mary 10/27/2023 [id number] / / [id number] [employer] Mary Synergy Xd Monorail 3mm 24mm 144cm Delivery System 1 Access Port [id number] - [id number] Implanted:Qty: 1 on 06/07/2022 by Champ Osborne MD PhD at [facility] Stent [employer] Mary 07/28/2023 [id number] / / [id number] [employer] Mary Synergy Xd Monorail 2.5mm 12mm 144cm Delivery System 1 Access [id number] - [id number] - [id number] Implanted:Qty: 1 on 06/07/2022 by Champ Osborne MD PhD at [facility] Stent [employer] Mary 05/03/2023 [id number] / [id number] / [id number] [facility] Mary [id number] Device Closure Angio-Seal Vip Bondek-Plus Polyglyd L70 Cm Od6 Fr Odsec.035 In Vascular - [id number] Implanted:Qty: 1 on 01/21/2021 by Hamlet Ortega Jr., MD at [facility] Left: Groin [employer] Mary [id number] / / Kyle Vascular Device Clsr Perclose Prostyle Sut-Mediatd Closure-Repair Sys 98723-80 - [id number] Implanted:Qty: 1 on 06/07/2022 by Champ Osborne MD PhD at [facility] Kyle Vascular 01/19/2024 [id number] / / [id number] Kyle Vascular Device Clsr Perclose Prostyle Sut-Mediatd Closure-Repair Sys 93735-43 - [id number] Implanted:Qty: 1 on 06/07/2022 by Champ Osborne MD PhD at [facility] Kyle Vascular 11/19/2023 [id number] / [id number] Bard Access Systems Power-Trialysis 13fr 30cm 3 Lumen Kink Resistance Symmetric Tip [id number] - [id number] Implanted:Qty: 1 on 06/07/2022 by Champ Osborne MD PhD at [facility] Right: Jugular Ramirez Chapito 07/20/2024 [id number] / / [id number] [employer] Impella Cp Percutaneous Left Ventricular Assist Device [id number] - [id number] Implanted:Qty: 1 on 06/07/2022 by Champ Osborne MD PhD at [facility] Left: Ventricle [employer] [id number] / / Bard Access Systems Power-Trialysis 13fr 20cm 3 Lumen Short Term Dialysis Straight [id number] - [id number] Implanted:Qty: 1 on 06/18/2022 at [facility] Ramirez Morrill 07/20/2024 [id number] / / [id number] Rl [employer] Inc Screw Bone Slf Drl Full Thread Locking 3.5x14mm Ti 100.035.14 - [id number] Implanted:Qty: 6 on 10/17/2023 by Lorne Mcnulty MD at [facility] N/A: Sternum Rl [employer] Inc 100.035.1 4 / / Rl [employer] Plate Bone Low Profile 6 Hole H Shape Sternum Ti 115.102.06 - [id number] Implanted:Qty: 2 on 10/17/2023 by Lorne Mcnulty MD at [facility] N/A: Sternum [employer] 115.102.0 6 / / Rl [employer] Plate Bone Low Profile 6 Hole O Shape Sternum Ti 115.104.06 - [id number] Implanted:Qty: 1 on 10/17/2023 by Lorne Mcnulty MD at [facility] N/A: Sternum [employer] 115.104.0 6 / / On-X Intrnl Valve Coronary Aortic Mechanical On X 25mm Onxane-25 - [id number] - [id number] Implanted:Qty: 1 on 10/17/2023 by Lorne Mcnulty MD at [facility] N/A: Heart On-X Intrnl 01/22/2028 ONXANE-25 / [id number] / Rl [employer] Screw Bone Slf Drl Full Thread Locking 3.5x18mm Ti 100.035.18 - [id number] Implanted:Qty: 12 on 10/17/2023 by Lorne Mcnulty MD at [facility] N/A: Sternum Rl [employer] 100.035.1 8 / / Explanted Type Area Banquet Houseperson Device Identifier Shelf Expiration Date Model / Serial / Lot Bard Peripheral Vascular Bard .25x.25in [place] Thk1.65mm Square [place]get Cardiovascular Ptfe [id number] - [id number] Explanted:Qty: 1 on 10/17/2023 by Lorne Mcnulty MD at [facility] N/A: Heart Bard Peripheral Vascular 05/18/2026 [id number] / / Procedures Procedure Name Priority Date/Time Associated Diagnosis Comments HEPATITIS C ANTIBODY Routine 07/29/2024 11:01 AM DIRECTOR OF APPLICATION DEVELOPMENT End stage renal disease (HCC) EGFR Routine 07/29/2024 11:01 AM DIRECTOR OF APPLICATION DEVELOPMENT End stage renal disease (HCC) HEMOGLOBIN A1C Routine 07/29/2024 11:01 AM DIRECTOR OF APPLICATION DEVELOPMENT End stage renal disease (HCC) LIPID PANEL Routine 07/29/2024 11:01 AM DIRECTOR OF APPLICATION DEVELOPMENT End stage renal disease (HCC) PSA SCREEN Routine 07/29/2024 11:01 AM DIRECTOR OF APPLICATION DEVELOPMENT End stage renal disease (HCC) TSH Routine 10/27/2023 2:30 AM DIRECTOR OF APPLICATION DEVELOPMENT from Last 3 Months or Most Recently Relevant to Health Maintenance Results * (ABNORMAL) eGFR (07/29/2024 11:01 AM DIRECTOR OF APPLICATION DEVELOPMENT) eGFR 7(L) >=60 mL/min/1. 73 m2 Comment: [...] reviewed 2021. Blood 07/29/2024 11:0 1 AM DIRECTOR OF APPLICATION DEVELOPMENT 07/29/2024 11:33 AM DIRECTOR OF APPLICATION DEVELOPMENT us Jossie King MD LAB BLOOD ORDERABL ES Final Result [facility] Department [place] [address] * PSA screen (07/29/2024 11:01 AM DIRECTOR OF APPLICATION DEVELOPMENT) PSA-Total 0.55 <=3.90 ng/mL Comment: Interpretive Data [...] revised 21. Blood 07/29/2024 11:0 1 AM DIRECTOR OF APPLICATION DEVELOPMENT 07/29/2024 11:33 AM DIRECTOR OF APPLICATION DEVELOPMENT Narrative [facility] - 07/29/2024 12:39 PM DIRECTOR OF APPLICATION DEVELOPMENT This lab is being obtained as part of a Kidney transplant evaluation, is time sensitive, and should only be drawn during the evaluation visit at [address] Lab[address] Jossie King MD LAB BLOOD ORDERABL ES Final Result Performing Organization Address [facility] de Phone Number [facility] Department [place] [address] * Hepatitis C antibody Blood (07/29/2024 11:01 AM DIRECTOR OF APPLICATION DEVELOPMENT) Pathologist [facility] Hep C Ab Nonreactive Nonreactive Comment:Antibodies to HCV no t detected. Does NOT exclude the possibility of recent exposure to HCV. Current interpretive data was last revised on 22 Blood 07/29/2024 11:0 1 AM DIRECTOR OF APPLICATION DEVELOPMENT 07/29/2024 11:32 AM DIRECTOR OF APPLICATION DEVELOPMENT Narrative [facility] - 07/29/2024 12:47 PM DIRECTOR OF APPLICATION DEVELOPMENT This lab is being obtained as part of a Kidney transplant evaluation, is time sensitive, and should only be drawn during the evaluation visit at [address] Jossie King MD LAB MICROBIOLOGY - GENERAL ORDERABLES Final Result Performing Organization Address [facility] de Phone Number [facility] Department [place] [address] * (ABNORMAL) Hemoglobin A1c (07/29/2024 11:01 AM DIRECTOR OF APPLICATION DEVELOPMENT) Pathologist [facility] Hgb A1C 9.0(H) 4.0 [...] fasting glucose. Blood 07/29/2024 11:0 1 AM DIRECTOR OF APPLICATION DEVELOPMENT 07/29/2024 11:34 AM DIRECTOR OF APPLICATION DEVELOPMENT Narrative [facility] - 07/29/2024 11:53 AM DIRECTOR OF APPLICATION DEVELOPMENT This lab is being obtained as part of a Kidney transplant evaluation, is time sensitive, and should only be drawn during the evaluation visit at [facility] Lab. Jossie King MD LAB BLOOD ORDERABL ES Final Result [facility] [address] [facility] Department [place] [address] * (ABNORMAL) Lipid panel (07/29/2024 11:01 AM DIRECTOR OF APPLICATION DEVELOPMENT) Cholesterol 114 30 - 199 mg/dL Comment: [...] revised on 2018. Triglycerides 66 <=149 mg/dL [facility] Comment: [...] MEDICAL CENTER Blood 07/29/2024 11:0 1 AM DIRECTOR OF APPLICATION DEVELOPMENT 07/29/2024 11:33 AM DIRECTOR OF APPLICATION DEVELOPMENT Narrative [facility] - 07/29/2024 12:10 PM DIRECTOR OF APPLICATION DEVELOPMENT This lab is being obtained as part of a Kidney transplant evaluation, is time sensitive, and should only be drawn during the evaluation visit at [facility] Lab. Jossie King MD LAB BLOOD ORDERABL ES Final Result [facility] Department [place] [address] * (ABNORMAL) TSH (10/27/2023 2:30 AM DIRECTOR OF APPLICATION DEVELOPMENT) [facility] Thyroid Stimulating Hormone 13.20(H) 0.30 - 4.20 mcIUnit/mL Blood 10/27/2023 2:30 AM DIRECTOR OF APPLICATION DEVELOPMENT 10/27/2023 2:42 AM DIRECTOR OF APPLICATION DEVELOPMENT Lorne Mcnulty MD LAB BLOOD ORDERABLES Final Result [facility] [address] Department [place] [address] from Last 3 Months or Most Recently Relevant to Health Maintenance Insurance IDPA [facility] MEDICARE ADVANTAGE IDPA [facility] MEDICARE ADVANTAGE TRANSPLANT [employer] MEDICARE RISK IDPA TRANSPLANT [employer] MEDICARE RISK [place] [address] IDPA Advance Directives For more information, please contact: [phone] * Full Code (Latest Code Status on File) Date Activated Date Inactivated Comments 10/13/2023 11:32 PM 11/03/2023 11:42 PM * Full Code Date Activated Date Inactivated Comments 06/05/2022 6:17 AM 06/29/2022 6:20 PM * Full Code Date Activated Date Inactivated Comments 06/05/2022 4:43 AM 06/05/2022 4:43 AM * Full Code Date Activated Date Inactivated Comments 06/04/2022 9:55 PM 06/05/2022 4:43 AM Care Teams Physicist Astrophysics Relationship Specialty Start Date End Date Aditya Castro MD [address] [facility] [place] [address] PCP - General 10/17/19 Alondra Lambert, RN [address] [address] Explosive Specialist 03/06/24 Hamlet Ortega Jr., MD [address] [place] [address] Consulting Physician Cardiovascular Disease 05/10/24 Leandro Reyes MD [address] [facility] [address] [place] [address] Consulting Physician Nephrology 07/30/24
--- OUTSIDE RECORDS SUMMARY | 2025-03-14 11:44 | XMS_ITS | Encounter Summary ---
Author Organization [facility] Address [address], [place] [address] Phone Care Team Providers Care Handbag Stitcher Name Role Phone Unavailable Primary Care Provider Unavailabl e Reason for Visit * Reason Comments Med Refill Encounter Details Date Type Department Care Team (Late st Contact Info) Description 02/13/2019 Refill [facility] [address] [address] Leandro Reyes MD [address] [address] Social History Tobacco Use Types Packs/Day Years [...]
--- OUTSIDE RECORDS SUMMARY | 2025-03-14 11:44 | XMS_ITS | Encounter Summary ---
Author Organization [facility] Address [address], [place] [address] Phone Care Team Providers Care Ovens Supervisor Name Role Phone Unavailable Primary Care Provider Unavailabl e Reason for Visit * Reason Comments Med Refill Encounter Details Date Type Department Care Team (Late st Contact Info) Description 07/04/2019 Refill [facility] [address] [address] Leandro Reyes MD [address] [address] Social History Tobacco Use Types Packs/Day Years [...]
--- OUTSIDE RECORDS SUMMARY | 2025-03-14 11:44 | XMS_ITS ---
Author Organization [facility] Address [address] [place] [address] Care Team Providers Care Health Care Specialist Name Role Phone Aditya Castro MD Primary Care Provider [phone] Alondra Lambert RN Unavailable [phone] Shannon Brock MD, Hamlet P. Unavailable [phone] Leandro Reyes MD Unavailable [phone] Transplant Episode Kidney Candidate [facility] ([place], [place]) [facility] Evaluation began on 05/10/2024 Marked as Active on 05/10/2024 Reason: Evaluation - Standard Kidney CoordinatorAlondra Lambert RN Fax: N/A Email: N/A Scores Score Value Updated Exceptions/Reas ons CPRA Not available EPTS (Calc) 80 03/14/2025 Care Team Name Role Phone Fax Email Alondra Lambert RN Kidney Coordinator [phone] N/A N/A Melany Kelly Primary Macadam Raker N/A N/A N/A Chris Richard Diesel Machinist N/A N/A N/A Events Pre-Transplant Referred: 03/06/2024 Evaluation began: 05/10/2024 Dialysis History Dialysis History Start End Type Comments Center 10/16/2019 Peritoneal [facility] Information Center Phone Fax Address [facility] [phone] [address] [facility] [address] [facility] [address]
--- OUTSIDE RECORDS SUMMARY | 2025-03-14 11:44 | XMS_ITS | Encounter Summary ---
Author Organization [facility] Address [address], [place] [address] Phone Care Team Providers Care Medical Detailist Name Role Phone Unavailable Primary Care Provider Unavailabl e Reason for Visit * Reason Comments Med Refill Encounter Details Date Type Department Care Team (Late st Contact Info) Description 02/24/2020 Refill [facility] [address] [address] Leandro Reyes MD [address] [address] Social History Tobacco Use Types Packs/Day Years [...]
--- OUTSIDE RECORDS SUMMARY | 2025-03-14 11:44 | XMS_ITS ---
Author Organization [facility] Address [address] [place] [address] Care Team Providers Care Computational Sciences Professor Name Role Phone Aditya Castro MD Primary Care Provider [phone] Alondra Lambert RN Unavailable [phone] Shannon Brock MD, [place] P. Unavailable [phone] Leandro Reyes MD Unavailable [phone] Dialysis Access Sites Type Status Location Placement Date Removal Da te Peritoneal Dialysis Catheter Continuous cycling Active Hemodialysis Cath Double Inactive Right N emiliano (side) - Anterior 06/18/2022 06/25/2022 Hemodialysis Cath Triple Inactive Neck - Anterior 202106/16/2022 Procedures Procedure Name Priority Date/Time Associated Diagnosis Comments HEPATITIS C ANTIBODY Routine 07/29/2024 11:01 AM [facility] End stage renal disease (HCC) EGFR Routine 07/29/2024 11:01 AM [facility] End stage renal disease (HCC) HEMOGLOBIN A1C Routine 07/29/2024 11:01 AM [facility] End stage renal disease (HCC) LIPID PANEL Routine 07/29/2024 11:01 AM [facility] End stage renal disease (HCC) PSA SCREEN Routine 07/29/2024 11:01 AM [facility] End stage renal disease (HCC) TSH Routine 10/27/2023 2:30 AM ORE W[facility]ER from Last 3 Months or Most [...] PUMP: Continue Omnipod 5 insulin pump with Roomtag G6 CGM at home settings: TIME BASAL [...] 1 tablet (25 mcg total) by mouth bilingual patient support caseworker before breakfast 30 tablet 1 11/04/19 24 [...] mg SL tablet 12/28/19 18 Active peg 570-bvotgwathzoi-hk ycerin (ARTIFICAL TEARS) 1-0.2-0.2 % ophthalmic solution 1 drop 4 (four) times a day 07/07/20 22 Active potassium chloride ER 20 mEq CR tablet Active Active Problems Problem Noted Date Diagnosed Date End stage renal disease 07/29/2024 Nonrheumatic aortic valve stenosis 11/22/2023 Status post aortic valve replacement 11/22/2023 Status post coronary artery bypass grafting 10/2023 CAD in [place] artery 10/13/2023 Anemia 06/22/2022 Assessment & Plan (06/29/2022 10:12 AM [facility]): Stable, likely 2/2 anemia from ESRD, [...] 06/22/2022 Assessment & Plan (06/29/2022 10:12 AM ORE W[facility]ER): - Renal consulted, s/p CRRT in the ICU now back on PD. Tolerated well and nephrology following - Trialysis catheter removed - Continue vitamins for renal bone mineral disease. Assessment & Plan (06/28/2022 3:29 PM ORE WASHER): - Renal consulted, s/p CRRT in [...] 06/22/2022 Assessment & Plan (06/29/2022 10:12 AM ORE WASHER): C/b cardiogenic shock requiring impella in the setting of cath and AHRF 2/2 pulmonary edema, now resolved. TTE demonstrating recovered EF 65% with grade I diastolic dysfunction. - metop as above - continue low dose losartan 12.5mg daily, ok per nephro. Tolerating well - volume management per PD Assessment & Plan (06/28/2022 3:29 PM ORE WASHER): C/b cardiogenic shock requiring impella in [...] 06/22/2022 Assessment & Plan (06/29/2022 10:12 AM ORE WASHER): Converted to NSR overnight on 06/24. CHADsVASc of 4 not on anticoagulation prior to admission. - cardiology consulted - recommended ongoing rate control - holding off on a/c with high risk for bleeding while on DAPT - reduced metop to 25mg BID in the setting of hypotension, HR 70s NSR Assessment & Plan (06/28/2022 3:30 PM ORE WASHER): Converted to NSR overnight on 06/24. [...] 08/22/2021 Assessment & Plan (06/29/2022 10:11 AM ORE W[facility]ER): With recurrent chest pain post-cath. He [...] today Assessment & Plan (06/28/2022 3:30 PM ORE W[facility]ER): With recurrent chest pain post-cath. He [...] 06/22/2022 Assessment & Plan (06/29/2022 10:11 AM ORE W[facility]ER): Secondary to NSTEMI, s/p Impella since removed on 06/10. Resolved. Assessment & Plan (06/23/2022 4:55 PM CDT): Secondary to NSTEMI, s/p Impella since removed on 06/10. Resolved. Assessment & Plan (06/22/2022 8:22 PM CDT): -Secondary to NSTEMI, s/p Impella since removed on 06/10. Acute hypoxemic respiratory failure 06/09/2022 Assessment & Plan (06/29/2022 10:12 AM ORE WASHER): Secondary to ACS and flash pulmonary [...] (06/10/2022): Added automatically from request for surgery [id number] Abnormal cardiovascular stress test 12/29/2020 Overview (12/29/2020): Added automatically from request for surgery [id number] Coronary artery disease of n ative artery of [place] heart with stable angina pectoris ([facility]) 05/23/2017 History of coronary artery stent placement [...] 01/18/2013 Assessment & Plan (06/29/2022 10:12 AM ORE WASHER): A1c well controlled on admission. He [...] session Assessment & Plan (06/28/2022 3:28 PM ORE W[facility]ER): A1c well controlled on admission. He [...] from doctor or pharmacy Never 12/01/2023 [facility] Utilities Answer Date [...] week 08/01/2024 How often do you attend alevism or baptism serv ices? Never 08/01/2024 Do you belong [...] file Legal Sex Male 3:42 AM ORE W[facility]ER Gender Identity Not on file Sexual Orientation Not on file Last Filed Vital Signs Vital Sign Reading Time Taken Comments Blood Pressure 122/75 07/29/2024 1:00 PM [facility] Pulse 116 07/29/2024 1:00 PM [facility] Temperature 36.8 C (98.2 F) 07/29/2024 1:00 PM [facility] Respiratory Rate 16 12/01/2023 11:1 3 AM CDT Oxygen Saturation 96% 12/01/2023 11: 13 AM CDT Inhaled Oxygen Concentration - - Weight 121.2 kg (267 lb 1.6 oz) 07/29/2024 1:00 PM ORE W[facility] Height 177.8 cm (5' 10) 07/29/2024 1:00 PM ORE W[facility]ER Body Mass Index 38.32 07/29/2024 1:00 PM ORE W[facility]ER Results * (ABNORMAL) eGFR (07/29/2024 11:01 AM ORE WASHER) eGFR 7(L) >=60 mL/min/1. 73 m2 Comment: [...] reviewed 2021. Blood 07/29/2024 11:0 1 AM ORE W[facility]ER 07/29/2024 11:33 AM ORE W[facility]ER Jossie King MD LAB BLOOD ORDERABL ES Final Result [facility] One [facility] Department [place] [address] * PSA screen (07/29/2024 11:01 AM ORE WASHER) PSA-Total 0.55 <=3.90 ng/mL Comment: Interpretive [...] revised 21. Blood 07/29/2024 11:0 1 AM ORE WASHER 07/29/2024 11:33 AM ORE WASHER Narrative [facility] - 07/29/2024 12:39 PM ORE WASHER This lab is being obtained as part of a Kidney transplant evaluation, is time sensitive, and should only be drawn during the evaluation visit at [address] Jossie King MD LAB BLOOD ORDERABL ES Final Result Performing Organization Address [facility] Co de Phone Number [facility] [place] [place] [address] * Hepatitis C antibody Blood (07/29/2024 11:01 AM ORE WASHER) [facility] Hep C Ab Nonreactive Nonreactive Comment:Antibodies to HCV no t detected. Does NOT exclude the possibility of recent exposure to HCV. Current interpretive data was last revised on 22 Blood 07/29/2024 11:0 1 AM ORE W[facility]ER 07/29/2024 11:32 AM ORE WASHER Narrative [facility] - 07/29/2024 12:47 PM ORE W[facility]ER This lab is being obtained as part of a Kidney transplant evaluation, is time sensitive, and should only be drawn during the evaluation visit at [address] Jossie King MD LAB MICROBIOLOGY - GENERAL ORDERABLES Final Result Performing Organization Address City/[facility]/ZIP Co de Phone Number [facility] [place] [address] * (ABNORMAL) Hemoglobin A1c (07/29/2024 11:01 AM ORE WASHER) [facility] Hgb A1C [...] fasting glucose. Blood 07/29/2024 11:0 1 AM ORE WASHER 07/29/2024 11:34 AM [facility]RE W[facility]ER Narrative [facility] - 07/29/2024 11:53 AM ORE WASHER This lab is being obtained as part of a Kidney transplant evaluation, is time sensitive, and should only be drawn during the evaluation visit at [facility]. us Jossie King MD LAB BLOOD ORDERABL ES Final Result [facility] One [facility] Department [place] [address] * (ABNORMAL) Lipid panel (07/29/2024 11:01 AM ORE WASHER) Cholesterol 114 30 - 199 mg/dL Comment: [...] on 2018. HDL 29(L) >=40 mg/dL [facility] Comment: Interpretive Data Ages < or [...] 2018. LDL, calculated 71 <=129 mg/dL [facility] Comment: Interpretive Data Ages < or [...] on 2024. Non-HDL Cholesterol 85 mg/dL [facility] Comment: Interpretive Data Ages < or [...] last revised on 2018. Chol/HDL ratio 4 [facility] Blood 07/29/2024 11:0 1 AM ORE W[facility]ER 07/29/2024 11:33 AM ORE W[facility]ER Narrative [facility] - 07/29/2024 12:10 PM ORE W[facility]ER This lab is being obtained as part of a Kidney transplant evaluation, is time sensitive, and should only be drawn during the evaluation visit at [facility]. us Jossie King MD LAB BLOOD ORDERABL ES Final Result [facility] One [facility] Department [place] [address] * (ABNORMAL) TSH (10/27/2023 2:30 AM ORE WASHER) Pathologist [facility] Thyroid Stimulating Hormone 13.20(H) 0.30 - 4.20 mcIUnit/mL Blood 10/27/2023 2:30 AM ORE [facility]ER 10/27/2023 2:42 AM ORE [facility]ER us Lorne Mcnulty MD LAB BLOOD ORDERABLES Final Result [facility] [address] Department [place] [address] from Last 3 Months or Most Recently Relevant to Health Maintenance
--- OUTSIDE RECORDS SUMMARY | 2025-03-14 11:44 | XMS_ITS | Clinical Summary ---
Author Organization [facility] Address [address], [place] [address] Phone Care Team Providers Care Shirt Finisher Name Role Phone Unavailable Primary Care Provider Unavailabl e Allergies Active Allergy Reactions Criticality Noted Date Comments Ticagrelor 12/26/2018 Medications cloNIDine (CATAPRES) 0.1 MG tablet 1 tab 2 times daily 0 8 Active nitroglycerin (NITROSTAT) 0.4 MG SL tablet PRN as directed 0 8 Active clopidogrel (PLAVIX) 75 MG tablet 1 tab daily 0 8 Active Cholecalciferol (VITAMIN D3) 10740 units capsule 1 tab by mouth once [...] on file Legal Sex Male 9:05 AM [facility] Gender Identity Not on file [...]
--- OUTSIDE RECORDS SUMMARY | 2025-03-14 11:44 | XMS_ITS | Clinical Summary ---
Author Organization [facility] Address [address] [place] [address] Care Team Providers Care Obiee Architect Name Role Phone Aditya Castro Primary Care Provider Unavailab le Source Comments [facility],non-owned Affiliates and Associated Physician Practices is amultiple site organization consisting of ambulatory clinics and hospital sitesin [place], [place], [place] and [place]. This disclosure is being madepursuant to the Care Everywhere program and may not contain all information available regarding this patient. Last updated 18.[facility] Allergies Active Allergy Reactions Criticality Noted Date Comments Allopurinol Other High Shuts my kidneys down per patient. Ticagrelor Rash High 11/22/2018 Contrast-Iodinated Agents For Ct/Other Rash Medium 11/22/2018 Medications * Be aware that medications may not be up to date on this document. Alwaysverify current medications with the patient. colchicine 0.6 MG tablet Take 1 (one) tablet by mouth every Monday, Monday & Monday Active gemfibrozil (LOPID) 600 MG tablet Take 1 (one) tablet by mouth 2 times daily, before breakfast and supper Active cetirizine (ZYRTEC) 10 MG tablet Take 1 (one) tablet by mouth once daily Active calcitriol (ROCALTROL) 0.25 MCG capsule Take 1 (one) capsule by mouth once daily Active aspirin (ASPIRIN) 81 MG chew tablet Take 1 tablet by mouth once daily 9 Active carvedilol (COREG) 25 MG tablet Take 1 (one) tablet by mouth 2 times daily with morning and evening meal Active febuxostat (ULORIC) 40 MG tablet Take 1 (one) tablet by mouth 9 Active atorvastatin (LIPITOR) 40 MG tablet Take 40 mg by mouth at bedtime 9 Active cyclobenzaprin e (FLEXERIL) 10 MG tablet Take 10 mg by mouth every 12 hours as needed 9 Active vitamin D, ergocalciferol , (DRISDOL) 71568 units capsule Take 1 (one) capsule by mouth every 7 days (once a week) 9 Active traMADol (ULTRAM) 50 MG tablet Take 1 (one) tablet by mouth every 8 hours as needed 9 Active TRUE METRIX BLOOD GLUCOSE TEST test strip 9 Active GLUCAGON EMERGENCY injection 9 Active selenium sulfide (SELSUN) 2.5 % lotionIndicati ons:Other seborrheic dermatitis APPLY TO FACE, LATHER AND RINSE OFF IN SHOWER AFTER 3 TO 5 MINUTES DIRECTED 120 mL 3 0 Active ezetimibe (Zetia) 10 MG tablet Take 1 [...] to affected area 3 times daily Active budesonide-for moterol (Symbicort) 160-4.5 MCG/ACT inhaler Inhale 2 (two) puffs by mouth 2 times daily Active Active Problems Problem Noted Date Diagnosed Date Pre-transplant evaluation for kidney transplant 03/24/2020 Overview (07/15/2020): Images from the original note were not included. Juvenal Garvin 1970 Referring Drawing Tender: Leandro Reyes Dialysis Info: Type: PD Time: 160 days (11/05/2019) Blood Type: A Body mass index is 37.8 kg/m . ALERTS Observer Electrical Prospecting: Vashti Lizama NP Past Medical History: Diagnosis Date Anemia Arthritis Arthropathy osteo. back and knees see Dr. Norton CAD (coronary artery disease) Community acquired pneumonia 2017 [facility] hospitalized with double pneumonia Congestive heart failure Coronary artery disease Diabetes mellitus type 1 teens dx when he was 13. Insulin since he was dx. Insulin pump currently with dexacom. Vashti Lizama NP is image consultant. DM (diabetes mellitus) TYPE 1 DVT (deep venous thrombosis) 2017 [facility]. ESRD on peritoneal dialysis Gout History of blood transfusion 2017 during admission for AL HLD (hyperlipidemia) HTN (hypertension) Hypercholesteremia 5 years on med Hypertension 30's on medications. Kidney disease Myocardial infarction 2017 [facility]. Stent x1 placed. Neuropathy feet [...] file Gets together: Not on file Attends pentecostalism service: Not on file Active member of [...] 07/02/2020: Committee Discussion Details: Pt brought to [facility] to discuss his cardiac [...] is the impression of this social science teacher that Juvenal Garvin has several positive factors [...] advised of safety concerns regarding immunosuppressants. Plan: barrow worker helper to provide supportive services as needed. Patient appears to be a reasonable candidate for transplant from a psychosocial perspective. -Post transplant arrangement forms are needed prior to being listed. Psychiatric Consult Recommended: No Transplant Escalation Engineer: Radha Roper LCSW RD:05/14/2020 BMI= 40.0, Class [...] Encounters Date Type Department Care Team Description 03/13/2025 Travel 02/03/2025 2:20 PM CDT Office Visit [facility] - Surgery [address] [place] [address], [address] [place] [address] Abelardo Meyers MD Encounter regarding vascular access for dialysis for end-stage renal disease (HCC) (Primary Dx) 02/03/2025 2:08 PM CDT - 02/03/2025 11:59 PM CDT Hospital Encounter [facility] [address] [place] [address], [address] [place] [address] Abelardo Meyers MD Discharge Disposition: Home or Self Care 02/03/2025 Travel 01/30/2025 Orders Only [facility] Surgery [address] [place] [address], [address] [place] [address] Bambi Camara, PHYSICIAN ASSISTANT [facility] FIELD COORDINATOR ESRD (end stage renal disease) (HCC) from [...] on file Legal Sex Male 5:33 AM [employer]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 Gender Identity Not on file Sexual Orientation Not on file Last Filed Vital Signs Vital Sign Reading Time Taken Comments Blood Pressure 140/60 07/13/2020 1:30 PM [employer]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 Pulse 65 07/13/2020 1:30 PM ME[employer]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 Temperature 36.1 C (97 F) 07/13/2020 1:30 PM [employer]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 Respiratory Rate 20 07/13/2020 1:30 PM ME[employer]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 Oxygen Saturation 95% 07/13/2020 1:30 PM ME[employer] ON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 Inhaled Oxygen Concentration - - Weight 113.9 kg (251 lb) 02/03/2025 2:17 PM CDT Height 177.8 cm (5' 10) 02/03/2025 2:17 PM CDT Body Mass Index 36.01 02/03/2025 2:17 PM CDT Plan of Treatment Upcoming Encounters Date Type Department Care Team (Latest Contact Info) Description 03/17/2025 7:20 AM CDT Hospital Encounter [facility] Perioperative Surgery [address] [place] [address] [id number] Abelardo Meyers MD [address] [place] [phone] Surgery General 03/17/2025 7:20 AM CDT - 03/17/2025 8:43 AM CDT [facility] [address] [place] [address] Abelardo Meyers MD [address] [place] [phone] LEFT UPPER ARM ARTERIOVENOUS FISTULA 03/17/2025 7:30 AM CDT Procedure visit [address] [address] Abelardo Meyers MD [address] [place] [phone] 03/31/2025 10:20 AM CDT Office Visit [address] [address] Abelardo Meyers MD [address] [place] [phone] Scheduled Procedures Name Priority Associated Diagnoses [...] Procedure Note Abelardo Meyers MD - 02/03/2025 [facility] [place] [address], [address] [place] [address] Vessel Mapping for Hemodialysis Report Pat.Name: JUVENAL GARVIN Pat.ID: [id number] St.Date: 02/03/2025 Refer.MD: SOWMYA DURAN Exam Time: 2:10:00 PM Study Type:Vessel Mapping for Hemodialysis Age: 10 1970,54Y Sex: MALE Sonogrphr: Shiva May RVT Pat. Stat.:Outpatient CPT - 4: 05259 Reason for Study: End Stage Renal Disease Procedures: Vessel Mapping for Hemodialysis Race: [facility] Visit ID: [id number] ++++++++++++++++++++++++++++++++++++ SUMMARY: ++++++++++++++++++++++++++++++++++++ Patent left cephalic vein [...] Signed 02/03/2025 04:09 PM Abelardo Meyers MD Bambi Camara PHYSICIAN ASSISTANT [facility] FIELD COORDINATOR VASCULAR LAB ORDERABLES E dited * HIV-1 HIV-2 ANTIGEN/ANTIBODY (05/14/2020 10:18 AM CDT) [facility] HIV Antigen/Antibod y 1 & 2 Non-reacti ve Non-react bianca 05/14/2020 11:49 AM [facility] Comment:Neither HIV-1 p24 An tigen nor HIV-1/HIV-2 Antibodies are detected. Blood BLOOD SPECIMEN / Unknown Lab Venipuncture / Unknown 05/14/2020 10:18 AM CDT 05/14/2020 10:57 AM CDT Glenny Martin MD LAB - HEMATOLOGY ORDERA BLES Final Result [facility] [address] [place] [address], [facility] [phone] * (ABNORMAL) COMPREHENSIVE METABOLIC PANEL (05/14/2020 10:18 AM CDT) [facility] BUN 65(H) 7 - 26 mg/dL 05/14/2020 11:41 AM [facility] Creatinine 5.6(H) 0.6 - 1.2 mg/dL 05/14/2020 11:41 AM [facility] Sodium 142 136 - 145 mmol/L 05/14/2020 11:41 AM [facility] Potassium 3.7 3.5 - 4.5 mmol/L 05/14/2020 11:41 AM [facility] Chloride 101 98 - 107 mmol/L 05/14/2020 11:41 AM [facility] CO2 28 22 - 29 mmol/L 05/14/2020 11:41 AM [facility] Glucose 162(H) 70 - 115 mg/dL 05/14/2020 11:41 AM [facility] Calcium 9.0 8.4 - 10.2 mg/dL 05/14/2020 11:41 AM [facility] Protein Total 6.9 6.0 - 8.3 g/dL 05/14/2020 11:41 AM [facility] Albumin 3.7 3.4 - 5.0 g/dL 05/14/2020 11:41 AM [facility] Bilirubin Total 0.7 0.2 - 1.2 mg/dL 05/14/2020 11:41 AM [facility] Alkaline Phosphatase 140 40 - 150 Units/L 05/14/2020 11:41 AM [facility] ALT 43 0 - 55 Units/L 05/14/2020 11:41 AM [facility] AST 29 5 - 34 Units/L 05/14/2020 11:41 AM [facility] Anion Gap 17 8 - 18 05/14/2020 11:41 AM [facility] BUN/Creatinine Ratio 12 7 - 23 05/14/2020 11:41 AM [facility] Osmolality Calculated 316(H) 270 - 300 mOsm/kg 05/14/2020 11:41 AM [facility] Albumin/Globulin Ratio 1.2 1.1 - 2.3 05/14/2020 11:41 AM [facility] eGFR 11(L) >60 mL/min/1.7 3 m2 05/14/2020 11:41 AM [facility] Blood BLOOD SPECIMEN / Unknown Lab Venipuncture / Unknown 05/14/2020 10:18 AM CDT 05/14/2020 10:55 AM [facility] us Glenny Martin MD LAB - CHEMISTRY ORDERAB LES Final Result [facility] [address] [place] [address], [facility] [phone] * HEPATITIS C ANTIBODY (05/14/2020 10:18 AM T) Hepatitis C Antibody Non-react bianca Non-reac tive 05/14/2020 11:49 AM CDT [facility] Comment:Hepatitis C Antibody screen indicates [...] LAB - CHEMISTRY ORDERAB LES Final Result [facility] [address] [place] [address], [facility] [phone] from Last 3 Months or Most Recently Relevant to Health Maintenance Insurance MEDICARE MEDICAID - [place] AETNA MEDICARE ADV [facility] MANAGED MEDICARE ADV MEDICARE MEDICAID - OUT OF STATE AETNA MEDICARE ADV [place] Advance Directives * Full Code (Latest Code Status on File) Date Activated Date Inactivated Comments 11/22/2018 9:24 AM 11/23/2018 7:55 PM Care Teams Obiee Architect Relationship Specialty Start Date End Date Aditya Castro Update Information PCP - General 03/06/19
--- OUTSIDE RECORDS SUMMARY | 2025-03-14 11:45 | XMS_ITS | Encounter Summary ---
Author Organization [facility] Address [address] [place] [address] Care Team Providers Care Clinical Reviewer Name Role Phone Aditya Castro Primary Care Provider Unavailab le Reason for Visit * Reason Onset Date Comments Med Question 06/25/2019 Encounter Details Date Type Department Care Team (Late st Contact Info) Description 06/25/2019 Telephone [facility]atology [address] [place] [address] Finn Kramer MD [address] [place] [address] Med Question Social History Tobacco Use Types Packs/Day Years Used Date Smoking Tobacco: Never Smokeless Tobacco: Never Alcohol Use Standard Drinks/Week Comments No 0 (1 standard drink = 0.6 oz pur e alcohol) Sex and Gender Information Value Date Recorded Sex Assigned at Not on file Legal Sex Male 5:33 AM MEDICAL BILLING AND CODING SPECIALIST Gender Identity Not on file Sexual Orientation Not on file documented as of this encounter Miscellaneous Notes * Telephone Encounter - Anali Connelly - 06/25/2019 1:41 PM CST Called and spoke with pt he is asking that we call [facility] at [phone] and talk to them about the compression stockings. I called and spoke with Kashif at [facility] and gave clarification the the mmHg I let them know that they should Be the 20-30mmHg . He understood and will get them ready for pt. Anali Connelly CAL BILLING AND CODING SPECIALIST * Telephone Encounter - Theodore Huerta - 06/25/2019 10:40 AM CST Pt called saying patient pharmacy just needs clarification of a number on the prescription for compression socks. Please Advise. CAL BILLING AND CODING SPECIALIST documented in this encounter Plan of Treatment Upcoming Encounters Date Type Department Care Team (Latest Contact Info) Description 03/17/2025 7:20 AM CDT Hospital Encounter [facility] Perioperative Surgery [address] [place] [address] [phone] Abelardo Meyers MD [address] [place] [phone] Surgery General 03/17/2025 7:20 AM CDT - 03/17/2025 8:43 AM CDT Surgery [facility] Perioperative Surgery [address] [place] [address] [phone] Abelardo Meyers MD [address] [place] [phone] LEFT UPPER ARM ARTERIOVENOUS FISTULA 03/17/2025 7:30 AM CDT Procedure visit [address] [address] Abelardo Meyers MD [address] [place] [phone] 03/31/2025 10:20 AM CDT Office Visit [address] [address] Abelardo Meyers MD [address] [place] [phone] Scheduled Procedures Name Priority Associated Diagnoses Date/Ti me CREATION ARTERIOVENOUS (AV) FISTULA DIRECT 03/17/2025 7:20 AM C DT documented as of this encounter Visit Diagnoses Not on filedocumented in this encounter Care Teams Clinical Reviewer Relationship Specialty Start Date End Date Aditya Castro Update Information PCP - General 03/06/19 documented as of this encounter
--- OUTSIDE RECORDS SUMMARY | 2025-03-14 11:45 | XMS_ITS | Encounter Summary ---
Author Organization [facility] Healthcare Address [address] [place] [address] Care Team Providers Care Grinder Hand Name Role Phone Jhonatan Bellamy MD Primary Care Provider [phone] Pedro Lakhani MD Primary Care Provider Eugenia Hughes MD Primary Care Provider [phone]- [phone] Aditya Castro MD Primary Care Provider [phone] Alondra Lambert RN Unavailable [phone] Shannon Brock MD, [place] P. Unavailable [phone] Leandro Reyes MD Unavailable [phone] Encounter Details Date Type Department Care Team (Late st Contact Info) Description 01/11/2018 Orders Only [facility] Health Information Management [address] [place] [address] Scanning, Provider Social History Tobacco Use Types Packs/Day Years Used Date Smoking Tobacco: Never Smokeless Tobacco: Former Alcohol Use Standard Drinks/Week Comments No 0 (1 standard drink = 0.6 oz pur e alcohol) Sex and Gender Information Value Date Recorded Sex Assigned at Not on file Legal Sex Male 3:42 AM BELL TIER Gender Identity Not on file Sexual [...] documented as of this encounter Care Teams Grinder Hand Relationship Specialty Start Date End Date Jhonatan Bellamy MD [address] [place] [address] PCP - General 03/25/15 04/16/18 Pedro Lakhani MD [address] [place] [address] PCP - General Family Practice 04/17/18 04/18/18 Eugenia Hughes MD [address] [place] [address] PCP - General Family Practice 04/19/18 10/16/19 Aditya Castro MD [address] [facility] [place] [address] PCP - General 10/17/19 Alondra Lambert, RN [address] [facility] [address] [place] [address] Mid Level Net Developer 03/06/24 Hamlet Ortega Jr., MD [address] [place] [address] Consulting Physician Cardiovascular Disease 05/10/24 Leandro Reyes MD [address] [facility] [address] [place] [address] Consulting Physician Nephrology 07/30/24 documented as of this encounter
--- OUTSIDE RECORDS SUMMARY | 2025-03-14 11:45 | XMS_ITS | Encounter Summary ---
Author Organization [facility] Address [address] [place] [address] Care Team Providers Care Salesperson Household Appliances Name Role Phone Aditya Castro MD Primary Care Provider [phone] Encounter Details Date Type Department Care Team (Late st Contact Info) Description 04/15/2019 Telephone [facility] Oncology and Hematology - [place] [address] [facility] [address] [place] [address] Fernando Schmid MD [address] [facility] [address] [place] [address] Social History Tobacco Use Types [...] on filedocumented in this encounter Care Teams Salesperson Household Appliances Relationship Specialty Start Date End Date Aditya Castro MD PCP - General Student in an Organized Health Care Education/Training Program 09/11/18 documented as of this encounter
--- OUTSIDE RECORDS SUMMARY | 2025-03-14 11:45 | XMS_ITS | Data Portability ---
Author Organization [facility], [facility] IP Address [address] [place] [address] Care Team Providers Care Armed Security Officer Name Role Phone STEPHANIE CORREA Primary Care [...] By Organization Details Last Modified Time 07/25/2018 [id number] use OTC lubrican t eyedrops 3 times a day in both eyes. [email or web address] Not available 07/25/2018 17:27:28 Keep follow-up appointments in 2 months as scheduled. [email or web address] Not available 07/25/2018 17:27:45 12/05/2018 [id number] diabetic retinopathy: care instructions [email or web address] Not available 12/05/2018 20:02:55 type 2 diabetes: care instructions [facility] Not available 12/05/2018 20:02:55 Reason for Referral None Reported. Problems Name Problem SNOMED Code Status Onset Date Resolution Date Notes Provider Name and Address Organization Details Recorded Time Diabetes mellitus 69608584 Active 2017 Wandy agosto [facility] 8 12:14:02 Hypercholestero lemia 27872345 Active 2017 Wandy agosto [facility] 8 12:14:14 Problem Notes None recorded. Procedures Surgical History Date Name Laterality Status Provider Name and Address Organization Details Recorded Time 9 placement of stent in coronary artery completed Wandy Rapp [facility] 12/05/2018 10:00:35 7 placement of stent in coronary artery completed Wandy Rapp [facility] 12/05/2018 09:59:38 7 Cataract Surgery completed Wandy Rapp [facility] 12/05/2018 10:00:20 Imaging Results None recorded. Procedure Notes None recorded. Medical Equipment None Reported. Allergies Allergen ID Allergen Name Allergen Category Reaction Reaction Severity Criticality Documentation Date Start Date Code Code System Note Provider Name and Address Organization Details Recorded Time 436851 Brilinta medicatio n Not available Not available Not available 07/04/2018 58202 36 [facility] 12:13[facility]16 844311 Iodinated contrast media (substanc e) medicatio n Not available Not available Not available 07/04/2018 31098 2004 [facility] 12:13:31 Medications Name [...] Updated DateTime 12/05/2018 180.34 cm 37.8 kg/m2 034194.5 3 g 62 /min 133/64 mm[Hg] Wandy Rapp [facility] 12/05/2018 09:58:22 Date Recorded Body height Heart rate Body mass index (BMI) Body weight Systolic And Diastolic Provider Name and Address Organization Details Last Updated DateTime 07/04/2018 180.34 cm 64 /min 37 kg/m2 101439.9 8 g 161/66 mm[Hg] Wandy Dionte [facility] 07/04/2018 12:12:14 Date Recorded Body height Heart rate Body mass index (BMI) Body weight Systolic And Diastolic Provider Name and Address Organization Details Last Updated DateTime 07/25/2018 180.34 cm 63 /min 36.9 kg/m2 053108.4 6 g 148/67 mm[Hg] Bernice Connelly RN [facility] 07/25/2018 15:12:11 Social History Question Answer Notes LastModified by Organizat ion Details LastModified Time Tobacco Smoking Status Never Smoker Wandy Dionte [facility] 12/05/2018 09:58:54 What Was The Date Of Your Most Recent Tobacco Screening? 12/05/2018 Information not available 03/14/2019 Has Tobacco Cessation Counseling Been Provided? [facility] Information not available 12/05/2018 Sex: Unknown [...] SNOMED-CT Code Diagnosis ICD10 Code Diagnosis Note [id number] Evy Olson MD [facility] [address] [address] 07/04/2018 11:51:22 07/05/2018 16:47:49 After-cataract with vision obscured following extraction of cataract 125755324 H26.492 Proliferat bianca retinopathy due to type 1 diabetes mellitus 6759421696 9101 E10.3593 [id number] Evy Olson MD [facility] [address] [place] [address] 07/25/2018 14:26:14 07/30/2018 10:38:59 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 9043676062 52452 E11.3299 Tear film insufficiency 27053946 H04.264 [id number] Evy Olson MD [facility] [address] [place] [address] 12/05/2018 09:46:14 12/06/2018 13:28:35 Nonproliferative retinopathy due to diabetes mellitus 845878630 E11.3293 After-juan ract with vision obscured following extraction of cataract 476440054 H26.492 Health Concerns Section Related Observation LastModified by Organization Detai ls LastModified Time None Recorded Concern Status LastModified by Organization Details LastModified Time None Recorded Advance Directives Directive None Recorded Payers Insurance Date Sequence Insurance Name Policy Number Policy Ge Covered Member ID Ge Member ID Guarantor Name 12/02/2018 1 [facility] (MEDICAID HMO) [id number] Juvenal Daigle [id number] Juvenal Daigle Notes Date Note Type Note Provider Name and Address Organization Details Recorded Time 07/04/2018 text/html C/O bleeding in left eye seen by it architecture analyst H/O cat. Sx OU. 2016 and 2018. No prolbem in post op exam Evy Olson MD [address] [place], [address], [facility] 07/05/2018 10:07:17 07/25/2018 text/html complaint of red spot in the right eye since 3 days, no pain no discharge no previous injury.History of diabetic retinopathy in both eyes MD Jesus Alberto [address], [place], [address], [facility] 07/25/2018 17:28:04 12/05/2018 text/html F/U DRP. c/o decreased vision in left eye MD Jesus Alberto [address] [place], [address], [facility] 12/05/2018 20:02:58
--- OUTSIDE RECORDS SUMMARY | 2025-03-14 11:45 | XMS_ITS | Data Portability ---
Author Organization [place] - [facility] [email or web address], Main Office Address [address] [place] [address] Care Team Providers Care White Sugar Syrup Operator Name Role Phone ADITYA CATHERINE Primary Care Provider ADITYA CATHERINE Referring Provider [phone] ADITYA CATHERINE Primary Care Provider Assessment Encounter Date Assessment Date Assessment LastModified by Organization Details LastModified Time 11/18/2024 11/18/2024 Advised pt to go to ED; but pt declined. Pt wants to try meds today and see how he feels. Risks explained. Cont f/u with Cardio and Pulmo as directed. Not available 11/18/2024 12:26:24 12/25/2024 12/25/2024 Patient [...] Details Last Modified Time Details Appointments Any 15 2024 03:30P M Aditya Catherine MD Not available Not available Not available Establish ed Patient 15 2024 10:30A M Chris Linda DPM Not available Not available Not available Any 15 2024 01:00P M Milly Hidalgo NP Not available Not available Not available Lab alpha-1-a ntitrypsi n (aat) phenotype , serum 2024 025 [email or web address] 2 [facility] (Lab), [address] [place], [address], 01/30/2025 17:27:02 ige, total, serum 2024 025 [email or web address] 2 [facility] (Lab), [address] [place], [address], 01/30/2025 17:27:14 tb (M tuberculo sis), ifn-gamma hiwot, blood 2024 025 [id number] 2 [facility] (Lab), [address] [place], [address], 01/30/2025 17:27:[address] s 1+2+3+4, serum 2024 025 [email or web address] 2 [facility] (Lab), [address] [place], [address], 01/30/2025 17:27:38 respirato ry allergen panel, [facility] A, serum 2024 025 [id number] 2 [facility] (Lab), [address] [place], [address], 01/30/2025 17:27:52 respirato ry allergen panel - [facility] b 2024 025 [id number] 2 [facility] (Lab), [address] [place], [address], 01/30/2025 17:28:03 Referral None recorded. Procedures None recorded. Surgeries None recorded. Imaging XR, chest, 2 view [email or web address], [address] [place] [address], [address], 01/15/2025 13:57:03 Medication Orders Symbicort 160 mcg-4.5 mcg/actua tion HFA aerosol inhaler 2024 025 [facility], [address] [place], [place], [id number], 03/06/2025 11:04:45 albuterol sulfate HFA 90 mcg/actua tion aerosol inhaler 2024 025 [facility], [address], [place], [id number], 03/06/2025 11:04:41 mupirocin 2 % topical ointment 2024 025 [facility] #41419, [address], [place], [id number], 02/26/2025 12:01:55 tramadol 50 mg tablet 2024 025 [facility] #10859, [address], [place], [id number], 02/26/2025 12:01:20 cephalexi n 500 mg capsule 2024 [facility] #78515, [address] [facility], [place], [place], [id number], 01/20/2025 15:10:48 clotrimaz ole-betam ethasone 1 %-0.05 % topical cream 2024 [facility] #57637, [address] [facility], [place], [place], [id number], 02/26/2025 11:14:33 Serevent Diskus 50 mcg/dose powder for inhalatio n 2024 [facility] #52180, [address] [facility], [place], [place], [id number], 12/25/2024 12:08:47 amoxicill in 875 mg-potass ium clavulana te 125 mg tablet [address] [facility]53056, [address] [facility], [place], [place], [id number], 12/23/2024 16:23:02 prednison e 10 mg tablet [address] [place] [address] [facility] #58195, [address] [facility], [place], [place], [id number], 12/23/2024 16:23:56 benzonata te 200 mg capsule [address] [place] [address] [facility] #16061, [address] [facility], [place], [place], [id number], 12/23/2024 16:22:53 ketoconaz ole 2 % shampoo [address] [facility] #30716, [address] [facility], [place], [place], [id number], 12/23/2024 16:23:33 Patient TargetsNo targets recorded. Patient InstructionsNo instructions recorded. Reason for Referral None Reported. Results Created Date Observation Date Name Description Value Unit Range Abnormal Flag Note LastModifiedBy Organization Detail LastModifiedTime 10/23/19 25 10/16/2024 CT, thora colum bar spine , w/o contr ast No observ ation record ed. [email or web address] [facility] [address] [facility], [place], [address], 11/18/2024 11:52:31 11/23/19 25 11/22/2024 XR, chest , 2 view No observ ation record ed. [address] [address], [place], [address], 11/26/2024 18:05:17 11/23/19 25 11/22/2024 CT, chest , w/o contr ast No observ ation record ed. [address] [address], [place], [address], 11/26/2024 18:05:51 11/24/19 25 11/23/2024 CT, abdom en + pelvi s, w/o contr ast No observ ation record ed. [address] [address], [place], [address], 11/26/2024 18:06:28 11/25/19 25 11/24/2024 XR, abdom en No observ ation record ed. [address] [address], [place], [address], 11/26/2024 18:08:44 11/27/19 25 11/26/2024 ultra sound guide d th[facility] cent[facility] (PROC ) No observ ation record ed. [email or web address] [address], [place], [address], 11/26/2024 17:29:22 12/17/19 25 12/11/2024 compl ete PFT w/ post [facility] hodil ator mandeep metry * No observ ation record ed. [facility] (Pulmonary) [address], [place], [address], 12/24/2024 11:07:53 12/24/19 25 11/22/2024 CT, chest , w/o contr ast No observ ation record ed. [email or web address] [facility] [address], [place], [address], 12/24/2024 09:10:12 12/26/19 25 12/25/2024 XR, chest , 2 view No observ ation record ed. [facility] [address] [place], [address], 01/15/2025 13:57:03 12/26/19 25 12/25/2024 NM, lung scan, venti latio n/per fusio n No observ ation record ed. [email or web address] [facility] [address] [place], [address], 12/26/2024 12:04:18 12/28/19 25 12/25/2024 NM, lung scan No observ ation record ed. [email or web address] Not Available 2024 09:15:59 01/13/20 25 01/11/2025 US, abdom en, limit ed No observ ation record ed. [facility] [address], [place], [address], 01/14/2025 18:06:58 03/06/20 25 03/06/2025 CT, abdom en + pelvi s, w/ contr ast No observ ation record ed. [id number] [facility] [address], [place], [address], 03/07/2025 14:02:20 Result Notes None recorded. Problems Name Problem SNOMED Code Status Onset Date Resolution Date Notes Provider Name and Address Organization Details Recorded Time Deep venous thrombosi s 420866174 Completed 201705/08/2018 Not Available [facility] 3 01:10:47 History of deep vein thrombosi s 047304612 Active 2017 Not Available [facility] 3 01:10:47 Myocardia l infarctio n 41952732 Completed 201705/08/2018 Not Available [facility] 3 01:10:48 Gastroeso phageal reflux disease without esophagit is 392016720 Active 2017 Not Available [facility] 3 01:10:48 Anemia 770891205 Active 2017 Not Available [facility] 3 01:10:48 Type 2 diabetes mellitus without complicat ion 008718536 Completed 201701/10/2019 Not Available [facility] 3 01:10:48 Hypertens bianca disorder 26807286 Active 2017 Not Available [facility] 3 01:10:49 Multiple benign melanocyt ic nevi 227443969 Active 2017 Not Available [facility] 3 01:10:50 Obesity 358324722 Active 2017 Not Available [facility] 3 01:10:50 Congestiv e heart failure 30901347 Active 2017 Not Available [facility] 3 01:10:50 Chronic kidney disease stage 4 384761991 Completed 201707/29/2020 Not Available [facility] 3 01:10:51 Atrial fibrillat ion 84650049 Active 2017 Not Available [facility] 3 01:10:52 Gout 43905932 Active 2017 Not Available [facility] 3 01:10:53 Chronic renal failure 81246627 Completed 201705/08/2018 Not Available [facility] 3 01:10:54 Vitamin D deficienc y 33135164 Active 2017 Not Available [facility] 3 01:10:49 Uncontrol led type 2 diabetes mellitus 582181001 Completed 201705/16/2019 Aditya Catherine MD [address] [facility], [address], [place], [address] , [place] [facility] 4 09:03:03 Hyperlipi demia 16615764 Active 2017 Not Available [facility] 3 01:10:52 Hyperchol esterolem ia 29053322 Active 2017 Not Available [facility] 3 01:10:47 Heartburn 33501411 Active 2017 Not Available [facility] 3 01:10:47 Dizziness 866062601 Active 2017 Not Available [facility] 3 01:10:50 Diabetic periphera l neuropath y 472592698 Active 2017 Not Available [facility] 3 01:10:51 Heart disease 26603982 Active 2017 Not Available [facility] 3 01:10:52 Diabetes mellitus 45073981 Active 2017 Not Available [facility] 3 01:10:52 Skin lesion 28280547 Active 2017 Not Available [facility] 3 01:10:54 Stable angina 391337659 Active 2017 Not Available [facility] 3 01:10:48 Seasonal allergic rhinitis 167435128 Active 2017 Not Available [facility] 3 01:10:49 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 614883283 Active 2017 Not Available [facility] 3 01:10:47 Pain in toe 450187558 Active 2018 Not Available [facility] 3 01:10:48 Pain in toe 359703600 Active 2018 Not Available [facility] 3 01:10:48 Dystrophi a unguium 91084315 Active 2018 Not Available [facility] 3 01:10:53 Degenerat ion of lumbar intervert ebral disc 92945805 Active 2018 Not Available [facility] 3 01:10:48 Type 1 diabetes mellitus 79013930 Active 2018 Not Available [facility] 3 01:10:52 Abrasion and/or friction burn of skin 182415987 Active 2018 Not Available [facility] 3 01:10:49 Chronic physical disabilit y 550670542 Active 2018 Not Available [facility] 3 01:10:47 Chronic low back pain 568558729 Active 2018 Not Available [facility] 3 01:10:48 Umbilical hernia 544225192 Active 2018 Not Available [facility] 3 01:10:49 Hyperpara thyroidis m 91793272 Active 2018 Not Available [facility] 3 01:10:52 Obstructi ve sleep apnea syndrome 13457959 Active 2018 Not Available [facility] 3 01:10:53 Corneal abrasion 44998770 Active 2018 Not Available [facility] 3 01:10:53 Chronic kidney disease stage 5 911129811 Active 2019 Not Available [facility] 3 01:10:51 Osteoarth ritis 260017052 Active 2019 Not Available [facility] 3 01:10:49 Atypical chest pain 710875417 Active 2019 Not Available [facility] 3 01:10:47 Ketoacido sis due to type 1 diabetes mellitus 288544225 Active 2019 Not Available [facility] 3 01:10:50 End-stage renal disease 13540076 Active 2019 Not Available [facility] 3 01:10:51 End stage renal failure on dialysis 469144648 Active 2019 Not Available [facility] 3 01:10:48 Pain in left foot 58356308022 9107 Active 2019 Not Available [facility] 3 01:10:48 Ultrasoun d scan abnormal 293621108 Active 2020 Not Available [facility] 3 01:10:47 Right upper quadrant pain 686772920 Active 2020 Not Available [facility] 3 01:10:48 Chronic idiopathi c constipat ion 70708903 Active 2020 Not Available [facility] 3 01:10:53 Periphera l venous insuffici ency 24363416 Active 2020 Not Available [facility] 3 01:10:47 Chronic sinusitis 53864909 Active 2021 Not Available [facility] 3 01:10:49 Deviated nasal septum 146396014 Active 2021 Not Available [facility] 3 01:10:47 Hypertrop hy of nasal turbinate s 61115618 Active 2021 Not Available [facility] 3 01:10:47 Nasal congestio n 33500353 Active 2021 Not Available [facility] 3 01:10:52 Plantar fasciitis of right foot 96127160082 783047 Active 2021 Not Available [facility] 3 01:10:47 Nausea 715372722 Active 2021 Not Available [facility] 3 01:10:50 Gastritis 4857877 Active 2021 Not Available [facility] 3 01:10:51 Epigastri c pain 91317429 Active 2021 Not Available [facility] 3 01:10:53 Sensorine ural hearing loss of bilateral ears 567994437 Active 2021 Not Available [facility] 3 01:10:47 Dysphagia 62130045 Active 2021 Not Available [facility] 3 01:10:50 Asymmetri nikos hearing loss 378778455 Active 2021 Not Available [facility] 3 01:10:51 Sinusitis 17121347 Active 2021 Not Available [facility] 3 01:10:49 Vertigo 279136513 Active 2021 Not Available [facility] 3 01:10:49 Deep venous thrombosi s of lower extremity 512637321 Active 2022 Not Available [facility] 3 01:10:50 Chronic back pain 837026118 Active 2022 Not Available [facility] 3 01:10:47 Seborrhei c dermatiti s of scalp 353830047 Active 2022 Not Available [facility] 3 01:10:47 Hypertrig lyceridem ia 107596893 Active 2022 Aditya Catherine MD [address], [address], [place], [address] , [facility] 3 16:04:08 Chronic constipat ion 877701656 Active 2022 Aditya Catherine MD [address], [address], [place], [address] , [facility] 3 16:45:46 Cough 84483382 Active 2022 Aditya Catherine MD [address], [address], [place], [address] , [facility] 3 12:45:44 Bronchiti s 22737663 Active 2022 Aditya Catherine MD [address], [address], [place], [address] , [facility] 3 09:22:50 Allergic rhinitis 84499355 Active 2022 Aditya Catherine MD [address], [address], [place], [address] , [facility] 3 09:28:39 Allergic contact dermatiti s 430300926 Active 2022 Aditya Catherine MD [address], [place], [address] , [facility] 3 16:06:02 Tinea cruris 937799315 Active 2022 Adiyta Catherine MD [address], [address], [place], [address] , [facility] 3 16:06:15 Acute bacterial sinusitis 22040464 Active 2023 KATIE Chen [address], [address] [address], [place], [address] , [facility] 4 09:55:25 Ulcer of mouth 85825907 Active 2023 Aditya Catherine MD [address] [address], [place], [address] , [place] [facility] 4 09:03:52 Onychomyc osis of toenails 432123405 Active 2023 Chris Linda DPM [address], [address] [address], [place], [address] , [facility] 4 12:24:55 Folliculi tis 73918241 Active 2023 Aditya Catherine MD [address] [address], [place], [address] , [facility] 4 10:26:36 Pain of right knee joint 43945365453 4100 Active 2023 Aditya Catherine MD [address] [address], [place], [address] , [facility] 4 10:31:07 Bleeding of ear canal 505536251 Active 2023 Aditya Catherine MD [address] [address], [place], [address] , [facility] 4 10:40:38 Acute left otitis media 324347113 Active 2023 Rohit Jessica MD [address], [place], [address] , [facility] 4 16:04:39 Thoracic back pain 844101722 Active 2023 Aditya Catherine MD [address], [place], [address] , [facility] 4 16:28:59 Pain of right shoulder blade 308813775 Active 2023 Aditya Catherine MD [address], [address], [place], [address] , [facility] 4 16:30:04 Degenerat ion of thoracolu mbar intervert ebral disc 57680750 Active 2023 Aditya Catherine MD [address], [address], [place], [address] , [facility] 4 16:30:54 Hypothyro idism 27200378 Active 2023 Aditya Catherine MD [address], [address], [place], [address] , [facility] 4 16:34:29 Uncontrol led type 2 diabetes mellitus 435365403 Active 2023 Aditya Catherine MD [address], [address], [place], [address] , [facility] 4 09:03:03 Bilateral osteoarth ritis of knees 65520080875 9107 Active 2023 Sofia agosto, [facility] 4 11:42:16 Pain of left knee joint 11055162358 4107 Active 2023 LESLY Gambino [address], [place], [address] , [facility] 4 13:42:14 Pain of right hip joint 24078172849 9102 Active 2023 KELLE John, [facility] 4 11:11:43 Trochante margarita bursitis of right hip 98925306859 9100 Active 2023 LESLY Gambino [address], [address], [place], [address] , [facility] 4 12:00:40 Gallstone 023184515 Active 2023 Aditya Catherine MD [address], [address], [place], [address] , [place] [facility] 4 11:21:33 Right flank pain 328673074 Active 2023 Aditya Catherine MD [address], [address], [place], [address] , [place] [facility] 4 11:29:38 Kidney stone 31231532 Active 2023 Aditya Catherine MD [address], [address], [place], [address] , [place] [facility] 4 11:31:01 Pleural effusion 09365803 Active 2024 Aditya Catherine MD [address], [address], [place], [address] , [place] [facility] 5 11:40:43 Dyspnea on exertion 71115614 Active 2024 Milly Hidalgo NP [address], [address], [place], [address] , [place] [facility] 5 11:13:03 Multiple nodules of lung 233190386 Active 2024 Milly Hidalgo NP [address], [address], [place], [address] , [place] [facility] 5 11:31:08 Environme ntal allergy 871236691 Active 2024 Milly Hidalgo NP [address], [address], [place], [address] , [place] [facility] 5 12:39:05 Chronic obstructi ve pulmonary disease 84535255 Active 2024 Milly Hidalgo NP [address], [address], [place], [address] , [place] [facility] 5 11:55:04 Persisten t atrial fibrillat ion 520072616 Active 2024 Milly Hidalgo NP [address], [address] [place] [address], [place], [address] , [facility] 5 14:16:49 Eruption of skin of penis Active 2024 Aditya Catherine MD [address] [facility], [address] [address], [place], [address] , [facility] 5 15:08:12 Superfici al folliculi tis 609680483 Active 2024 Aditya Catherine MD [address] [facility], [address] [address], [place], [address] , [facility] 5 15:08:33 Benign hypertens ion 65073862 Active 2024 Aditya Catherine MD [address] [facility], [address] [address], [place], [address] , [facility] 5 11:06:44 Hang nail 4611068 Active 2024 Stephie Herron NP [address] [facility], [address] [address], [place], [address] , [facility] 5 11:45:19 Hematoma 881123661 Active 2024 Stephie Herron NP [address] [address], [place], [address] , [facility] 5 11:49:04 Blood in urine 53473512 Active 2024 Stephie Herron NP [address] [address], [place], [address] , [facility] 5 11:51:26 Notes:blood clots, coronary artery disease, head trauma or injury, kidney disease, seizures, use of blood thinners, balance problems, numbness or tingling, loss of memory, swelling in legs, shortness of breath, muscle pain, back/neck pain, swollen or painful joints, excessive thirst, dry mouth, sleep apnea, wears glasses Some problems listed in Document: #[id number] could not be added to this patient's chart. Please review this document and add these problems to the patient's chart manually as needed. Problem Notes None recorded. Procedures Surgical History Date Name Laterality Status Provider Name and Address Organization Details Recorded Time 05/02/20 24 Nail Debridement completed Chris Linda DPM [address], [address], [place], [address], [facility] 05/20/2024 09:31:13 03/11/20 24 Nail Debridement completed Chris Linda DPM [address], [address], [place], [address], [facility] 03/11/2024 12:35:50 03/11/20 24 Wound Care-Podiatry completed Chris Linda DPM [address], [address], [place], [address], [facility] 03/11/2024 12:34:57 01/08/20 24 Wound Care-Podiatry completed Chris Linda DPM [address], [place], [address], [facility] 01/08/2024 12:26:31 12/25/19 24 Medicare Wellness CPT Code, subsequent completed Beth LUAN Willis [facility] [employer] [facility] 12/25/2023 15:24:37 11/06/19 24 Medicare Wellness CPT Code, subsequent cancelled Beth Willis RN [facility] [employer] [email or web address] 11/03/2023 10:10:00 01/08/20 22 SEPTOPLASTY (SURG) completed Not Available [facility] 10/19/2022 01:16:48 01/22/20 21 Cardiac Cath completed Not Available [facility] 023 01:06:21 reduction of nasal turbinate completed Not Available [facility] 10/19/2022 01:06:21 procedure on heart completed Lisa Lopez CNA [employer] [facility] [email or web address] 05/10/2024 11:11:45 Imaging Results None recorded. Procedure Notes None recorded. Medical Equipment None Reported. Allergies Allergen ID Allergen Name Allergen Category Reaction Reaction Severity Criticality Documentation Date Start Date Code Code System Note Provider Name and Address Organization Details Recorded Time 1834 Iodinated contrast media (substanc e) medicatio n rash severe Not available 10/19/2022 02883 2004 SNOMED Not Available [facility] 3 01:16:23 1835 Brilinta medicatio n rash severe Not available 10/19/2022 15402 36 RxNorm Not Available [facility] 3 01:16:23 1836 allopurin ol medicatio n other severe Not available 10/19/2022 519 RxNorm Not Available [facility] 3 01:16:23 Medications Name Sig Start [...] vir 500 mg tablet 12/[address] Lewis prescrib es Not Available [...] Available Not Available Flarex 0.1 % eye drops,inscription [facility] 09/06 completed Not Available Not Available [...] Available prednisol one acetate 1 % eye drops,inscription [facility] 03/08 completed Not Available Not [...] mg by injectio n route. 12/23 completed NDC: [id number] Not Available Not Available Not Available nifedipin [...] %) eye ointment 12/[address] Joshua jamison Not Available Not Available Not Available clotrimaz [...] Lisa Gonzáles [address] [facility], [address], [place], [address], [place] [facility] [email or web address] 11/18/2024 12:23:14 Date Recorded Body height Body mass index (BMI) Body weight Body temperature Oxygen saturation Oxygen saturation in Arterial blood by Pulse oximetry Systolic And Diastolic Provider Name and Address Organization Details Last Updated DateTime 5 177.8 cm 38.1 kg/m2 329518. 38 g 97.6 [degF] 95 % 95 % 140/86 mm[Hg] Jessica Macedo RN [facility] [employer] [facility] 5 11:50:22 Date Recorded Body height Body mass index (BMI) Body weight Body temperature Heart rate Oxygen saturation Oxygen saturation in Arterial blood by Pulse oximetry Systolic And Diastolic Provider Name and Address Organization Details Last Updated DateTime 5 177.8 cm 38.6 kg/m2 679241. 35 g 98.3 [degF] 115 /min 96 % 96 % 126/70 mm[Hg] Nina Pool MA [facility] [employer] [facility] 5 11:46:02 Date Recorded Oxygen saturation Oxygen saturation in Arterial blood by Pulse oximetry Provider Name and Address Organization Details Last Updated DateTime 01/20/2025 94 % 94 % Aditya Catherine MD [address] [place] [address], [address], [facility] [employer] 01/20/2025 15:13:59 Date Recorded Body height Body mass index (BMI) Body weight Body temperature Heart rate Systolic And Diastolic Provider Name and Address Organization Details Last Updated DateTime 5 177.8 cm 36.8 kg/m2 215063. 4 g 97.7 [degF] 64 /min 130/68 mm[Hg] Jessica Macedo RN [facility] 5 15:04:16 Date Recorded Body height Body mass index (BMI) Body weight Body temperature Heart rate Respiratory rate Oxygen saturation Oxygen saturation in Arterial blood by Pulse oximetry Pain severity - 0-10 verbal numeric rating [Score] - Reported Systolic And Diastolic Provider Name and Address Organization Details Last Updated DateTime 5 177.8 cm 36.9 kg/m2 176960. 69 g 97.7 [degF] 119 /min 24 /min 99 % 99 % 2 100/60 mm[Hg] Lucinda Fletcher RN [facility] 5 11:18:25 Date Recorded Body height Body mass index (BMI) Body weight Body temperature Heart rate Oxygen saturation Oxygen saturation in Arterial blood by Pulse oximetry Systolic And Diastolic Provider Name and Address Organization Details Last Updated DateTime 5 177.8 cm 36.7 kg/m2 814312. 65 g 99 [degF] 87 /min 93 % 93 % 104/62 mm[Hg] Nina Pool MA [place] - [facility] [place] [facility] 5 10:42:06 Social History Question Answer Notes LastModified by Organizat ion Details LastModified Time Tobacco Smoking Status Never Smoker Not Available [facility] 10/19/2022 01:04:37 Do You Have An Advance Directive? No MIGRATION.98220 [id number] Information not available 10/19/2022 Are You Blind Or Do You Have Difficulty Seeing? No MIGRATION.56719 14637 Information not available 10/19/2022 Is Blood Transfusion Acceptable In An Emergency? Yes Information not available 12/07/2023 What Is Your Level Of Caffeine Consumption? Occasional MIGRATION.10244 00405 Information not available 10/19/2022 How Much Tobacco Do You Chew? None MIGRATION.98350 13792 Information not available 10/19/2022 What Is Your Code Status? Full Code Information not available 12/07/2023 In The 14 Days Before Symptom Onset, Have You Had Close Contact With A Laboratory-confi rmed COVID-19 While That Case Was Ill? No MIGRATION.87210 45803 Information not available 10/19/2022 In The 14 Days Before Symptom Onset, Have You Had Close Contact With A Person Who Is Under Investigation For COVID-19 While That Person Was Ill? No MIGRATION.86335 47633 Information not available 10/19/2022 Are You Deaf Or Do You Have Serious Difficulty Hearing? No MIGRATION.33323 43486 Information not available 10/19/2022 What Type Of Diet Are You Following? CARDIAC And Renal MIGRATION.24258 74071 Information not available 10/19/2022 Which Illicit Or Recreational Drugs Have You Used? NONE MIGRATION.17406 01168 Information not available 10/19/2022 What Is The Highest Grade Or Level Of School You Have Completed Or The Highest Degree You Have Received? [id number] 2 Years MIGRATION.00225 06660 Information not available 10/19/2022 Do You Have An Electrostatic Air Filter? No Information not available 10/31/2024 Have There Been Any Changes To Your Family Or Social Situation? No Information not available 12/07/2023 Are There Any Guns Present In Your Home? No MIGRATION.81632 17437 Information not available 10/19/2022 Do You Have A Humidifier? No Information not available 10/31/2024 Do You Use Insect Repellent Routinely? No Information not available 12/07/2023 Where Do You Live? 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 No Information not available 10/31/2024 What Was The Date Of Your Most Recent Tobacco Screening? 03/06/2025 Information not available 03/06/2025 Do You Have Any Pets? Yes Information not available 12/07/2023 What Is Your Relationship Status? Single MIGRATION.55191 35271 Information not available 10/19/2022 Do You Use Your Seat Belt Or Car Seat Routinely? Yes MIGRATION.79719 44262 Information not available 10/19/2022 Do You Have Smoke And Carbon Monoxide Detectors In Your Home? Yes Information not available 12/07/2023 Are You Passively Exposed To Smoke? No Information not available 12/07/2023 Are There Any Smokers In Your House? No Information not available 12/07/2023 Do You Use Sunscreen Routinely? No Information not available 12/07/2023 Have You Recently Traveled Abroad? No MIGRATION.75350 40012 Information not available 10/19/2022 Do You Have Difficulty Walking Or Climbing Stairs? No MIGRATION.48315 35689 Information not available 10/19/2022 Are You Currently In School? No MIGRATION.62568 33946 Information not available 10/19/2022 Sex: Unknown Functional Status Question Answer Note LastModified by Organizat ion Details LastModified Time Do you use any illicit or recreational drugs? No Information not available 03/06/2025 Do you or have you ever used any other forms of tobacco or nicotine? No Information not available 03/06/2025 What is your level of alcohol consumption? None MIGRATION.481556 8385 Information not available 10/19/2022 Do you or have you ever used smokeless tobacco? Never used smokeless tobacco MIGRATION.316286 3946 Information not available 10/19/2022 Have you been exposed to chemicals or toxins? not that aware of Information not available 10/31/2024 Do you have difficulty doing errands alone? 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 DISABLED MIGRATION.955914 4406 Information not available 10/19/2022 Do you have difficulty dressing or bathing? No MIGRATION.433419 0526 Information not available 10/19/2022 Do you or have you ever used e-cigarettes or vape? Never used electronic cigarettes MIGRATION.964135 9315 Information not available 10/19/2022 What is your exercise level? Occasional MIGRATION.172411 4193 Information not available 10/19/2022 Mental Status Question Answer Note LastModified by Organizat ion Details LastModified Time Do you feel stressed (tense, restless, nervous, or anxious, or unable to sleep at night)? [id number] MIGRATION.[id number] 26 Information not available 10/19/2022 Do you have difficulty concentrating, remembering or making decisions? No MIGRATION.94353986 26 Information not available 10/19/2022 Family History Relationship Description Onset Age of this Age Resolved Age Notes LastModified by Organization Details LastModified Time Father Heart disease MIGRATION.683 [id number] Not available 10/19/2022 01:06:25 Father Hypertensive disorder MIGRATION.906 [id number] Not available 10/19/2022 01:06:25 Notes:cancer-mother NO ENT [...] YOU BEEN HOSPITALIZED OR SEEN IN [facility] ER IN THE PAST YEAR ? [...] virus, quadrivalent, PF 3 completed BERNARDO Reddy [place] [facility] 07/03/2023 11:25:39 pneumococcal polysaccharide PPV23 0 completed Not Available [facility] 10/19/2022 01:16:16 Tdap 0 completed Not Available [facility] 10/19/2022 01:16:16 Influenza, split virus, quadrivalent, PF 9 completed Not Available [facility] 10/19/2022 01:16:16 Influenza, split virus, quadrivalent, PF 2 completed Not Available [facility] 10/19/2022 01:16:16 Influenza, split virus, quadrivalent, PF 1 completed Not Available [facility] 10/19/2022 01:16:16 Past Encounters Encounter ID Performer Location Encounter Start Date Encounter Closed Date Diagnosis/Indication Diagnosis SNOMED-CT Code Diagnosis ICD10 Code Diagnosis Note [id number] Aditya Catherine MD [facility] [address] [place] [address] 10/27/2020 00:00:00 10/27/2020 10:48:24 [id number] Aditya Catherine MD [facility] [address] [place] [address] 03/08/2021 00:00:00 03/08/2021 17:34:39 [id number] Chris Linda, JESSICAM _ATHENA_M IGRATION_ DEFAULT_1 _1 , 03/22/2021 00:00:00 03/22/2021 20:53:26 [id number] Aditya Catherine MD [facility] [address] [place] [address] 06/08/2021 00:00:00 06/09/2021 09:19:54 [id number] Aditya Catherine MD [facility] [address] [place] [address] 06/22/2021 00:00:00 06/22/2021 16:14:11 [id number] Aditya Catherine MD [facility] [address] [place] [address] 06/29/2021 00:00:00 06/29/2021 12:04:58 [id number] Aditya Catherine MD [facility] [address] [place] [address] 07/22/2021 00:00:00 07/22/2021 10:59:05 [id number] Aditya Catherine MD [facility] [address] [place] [address] 09/09/2021 00:00:00 09/09/2021 17:59:48 [id number] Aditya Catherine MD [facility] [place] [address] [place] [address] 10/05/2021 00:00:00 10/05/2021 16:51:40 [id number] MD TIARA [facility] [place] [address] [place] [address] 10/12/2021 00:00:00 10/12/2021 16:03:48 [id number] MD TIARA D[facility] [place] [address] [place] [address] 11/18/2021 00:00:00 11/18/2021 15:39:06 [id number] Chris Linda, DPM _ATHENA_M IGRATION_ DEFAULT_1 _1 , 12/20/2021 00:00:00 01/15/2022 22:33:55 [id number] Aditya Catherine MD Jerardo[facility]LI [facility] [place] [address] [place] [address], [place] [address] 12/28/2021 00:00:00 12/28/2021 11:10:02 [id number] MD TIARA D[facility] [place] [address] [place] [address] 01/18/2022 00:00:00 01/18/2022 16:24:34 [id number] Aditya Catherine MD Jerardo_[facility]LI [facility] [place] [address] [place] [address], [place] [address] 01/25/2022 00:00:00 01/25/2022 15:00:07 [id number] Rohit Jessica MD [facility] [place] [address] [place] [address] 02/17/2022 00:00:00 02/17/2022 15:06:30 [id number] Aditya Catherine MD [facility] [place] [address] [place] [address], [place] [address] 03/29/2022 00:00:00 03/29/2022 10:58:26 [id number] MD ANATOLY Dickson_[facility] [place] [address] [place] [address] 05/12/2022 00:00:00 05/12/2022 14:21:01 [id number] Chris Linda, GABRIEL _SAMANTHA_Lisa IGRATION_ DEFAULT_1 _1 , 05/16/2022 00:00:00 05/16/2022 16:50:12 [id number] Aditya Catherine MD [address] [address] 07/13/2022 00:00:00 07/13/2022 17:28:54 [id number] Aditya Catherine MD [address] [address] 09/06/2022 00:00:00 09/06/2022 15:23:36 [id number] Aditya Catherine MD [address] [address] 10/11/2022 00:00:00 10/11/2022 17:27:53 [id number] Aditya Catherine MD [address] [address] 11/01/2022 09:46:21 11/01/2022 10:14:11 [id number] Aditya Catherine MD [address] [address] 11/08/2022 15:47:51 11/08/2022 16:30:48 Vitamin D deficiency 07807509 E55.9 Gout 57916614 M10.9 Hyperparathyroidism 6699 9008 E21.3 Uncontroll ed type 2 diabetes mellitus 281015937 E11.65 Hypertriglyceridemia 302 731710 E78.2 Hyperlipidemia 03230402 E78.5 Chronic constipation 236 640011 K59.09 Obesity 128999149 E66.9 [id number] Aditya Catherine MD [address] [address] 01/23/2023 09:08:48 01/23/2023 09:38:23 Bronchitis 82537344 J40 Cough 14799468 R05.9 Chronic ki dney disease stage 5 155367108 N18.5 Allergic rhinitis 328323 04 J30.9 Vitamin D deficiency 347 91930 E55.9 [id number] Aditya Catherine MD [address] [address] 06/27/2023 15:52:59 06/27/2023 16:15:54 Allergic contact dermatitis 677370165 L23.9 Tinea cruris 633658447 B 35.6 Administra tion of influenza vaccine 88372803 Z23 Chronic low back pain 27 8725773 M54.59 Gout 12255249 M10.9 [id number] Aditya Catherine MD [address] [address] 07/10/2023 15:50:39 07/10/2023 16:20:39 Vitamin D deficiency 36840106 E55.9 Gout 78208632 M10.9 Hyperparathyroidism 6699 9008 E21.3 Uncontroll ed type 2 diabetes mellitus 365184777 E11.65 Hypertriglyceridemia 302 434606 E78.2 Hyperlipidemia 94009027 E78.5 Chronic constipation 236 311929 K59.09 Obesity 296732750 E66.9 Bronchitis 44704663 J40 [id number] Aditya Catherine MD [address] [address] 12/07/2023 09:26:05 12/07/2023 11:06:01 Acute bacterial sinusitis 79803144 J01.90 Add humidifcat ion to bedroom at night [id number] Aditya Catherine MD [address] [address] 12/25/2023 15:06:36 12/25/2023 16:45:08 Gout 27066837 M10.9 Vitamin D deficiency 347 55905 E55.9 Hyperparathyroidism 6699 9008 E21.3 Uncontroll ed type 2 diabetes mellitus 509185659 E11.65 Hypertriglyceridemia 302 369461 E78.2 Hyperlipidemia 20338303 E78.5 Chronic constipation 236 529638 K59.09 Obesity 412000270 E66.9 Bronchitis 42063926 J40 Adult heal th examination 839113620 Z00.00 Screening for disorder 563164402 Z13.9 Ulcer of mouth 65810571 K12.1 Screening for malignant neoplasm of prostate 474516160 Z12.5 [id number] Chris Linda DPM [facility] Podiat[facility] [place] [address] [place] [address] 01/08/2024 11:55:29 01/11/2024 12:25:06 Onychomycosis of toenails 574922831 B35.1 educated on conditiont opical antifungal Rxfollow-u p in 1-2 months Blister of toe without infection 04804844 S90.424A right 3rd toeMonitor for infection dailyBetad ine wet-to-dry dressings dailyfollo w-up 1 week Diabetic p eripheral neuropathy 670209678 E11.40 Patient educated on neuropathy , diabetes, diabetic diet, and daily foot exams. Patient is to check feet daily for new wounds, blisters, redness to prevent infection and ulceration s to the feet. Patient will return to clinic in 3 months for diabetic foot workup. Dystrophia unguium 84405 009 L60.3 nails debrided without incident [id number] Aditya Catherine MD [address] [address] 02/15/2024 10:01:48 02/15/2024 10:47:11 Gout 15973516 M10.9 Vitamin D deficiency 347 23099 E55.9 Hyperparathyroidism 6699 9008 E21.3 Uncontroll ed type 2 diabetes mellitus 304596879 E11.65 Hypertriglyceridemia 302 673685 E78.2 Hyperlipidemia 47980839 E78.5 Chronic constipation 236 895501 K59.09 Obesity 412690010 E66.9 Bronchitis 72229930 J40 Folliculitis 57893097 L7 3.9 Seborrheic dermatitis of scalp 584772724 L21.0 Pain of ri ght knee joint 0104967799 83900 M25.561 Bleeding of ear canal 30 1561465 H92.22 [id number] Rohit Jessica MD [facility] [address] [place] [address] 02/15/2024 15:35:10 02/16/2024 12:44:58 Acute left otitis media 017592962 H66.92 [id number] Chris Linda DPM [facility] Pod[facility] [place] [address] [place] [address] 03/11/2024 12:07:37 03/12/2024 16:35:57 Blister of foot without infection 0552721 S90.821A right foot medial 1st metatarsop halangeal jointofflo adingwound care daily until healedfoll ow-up 10 days Blister of toe without infection 60148389 S90.425A left 4th toetriple antibiotic ointment and Band-Aid appliedwou nd care as above Diabetes mellitus 903833 09 E13.9 Continue diabetic control per PCP recommenda tion Diabetic p eripheral neuropathy 935740762 E11.40 Patient educated on neuropathy , diabetes, diabetic diet, and daily foot exams. Patient is to check feet daily for new wounds, blisters, redness to prevent infection and ulceration s to the feet. Patient will return to clinic in 3 months for diabetic foot workup.con tinue diabetic shoe gear Dystrophia unguium 82875 009 L60.3 nails debrided without incident [id number] Aditya Catherine MD [facility] [address] 04/16/2024 16:08:23 04/16/2024 17:22:18 Thoracic back pain 903291328 M54.6 Pain of ri ght shoulder blade 229242809 M25.511 Degenerati on of thoracolumbar intervertebral disc 93246206 M51.35 Hypothyroidism 41091901 E03.9 Obesity 700138941 E66.9 End stage renal failure on dialysis 223654619 N18.6 Chronic low back pain 27 4609323 M54.59 [id number] Chris Linda DPM [facility] Pod[facility] [place] [address] [place] [address] 05/02/2024 10:29:22 05/20/2024 11:32:52 Onychomycosis of toenails 353110686 B35.1 right great toenailsch eduled total nail avulsionRe viewed treatment optionsFol low-up for procedure Right great toenail avulsion scheduled 07/15/2024 Peripheral venous insufficiency 78642021 I87.2 Rx compressio n stockings 20 30 mm Hgelevatio n when at restmonito r for signs of DVT at present seek medical attention immediatel y Dystrophia unguium 89583 009 L60.3 nails debrided without incident Abrasion a nd/or friction burn of skin 553477286 T14.8XXA healed abrasions x4 left lower leg Diabetic p eripheral neuropathy 442885886 E11.40 Patient educated on neuropathy , diabetes, diabetic diet, and daily foot exams. Patient is to check feet daily for new wounds, blisters, redness to prevent infection and ulceration s to the feet. Patient will return to clinic in 3 months for diabetic foot workup.con tinue diabetic shoe gear [id number] Aditya Catherine MD [facility] [address] 05/07/2024 09:01:36 05/07/2024 09:40:15 Gout 08737179 M10.9 Vitamin D deficiency 347 61420 E55.9 Hyperparathyroidism 6699 9008 E21.3 Uncontroll ed type 2 diabetes mellitus 928991961 E11.65 Hypertriglyceridemia 302 373514 E78.2 Hyperlipidemia 73205871 E78.5 Chronic constipation 236 144576 K59.09 Obesity 476157125 E66.9 Pain of ri ght knee joint 7951824373 34213 M25.561 Chronic Screening for malignant neoplasm of prostate 641159198 Z12.5 Chronic back pain 037170 002 G89.29 Screening colonoscopy 44 4227996 Z12.11 [id number] Dimitrios Cabrera MD [facility] [place] [address] [place] [address] 05/10/2024 10:46:13 05/10/2024 11:48:23 Pain of right knee joint 5713638241 11859 M25.561 Bilateral osteoarthritis of knees 5619267034 95387 M17.0 Pain of le ft knee joint 3098881905 93132 M25.285 [id number] Aditya Catherine MD [address] [address] 05/21/2024 15:45:57 05/21/2024 16:21:32 Gout 28188341 M10.9 Vitamin D deficiency 347 49887 E55.9 Uncontroll ed type 2 diabetes mellitus 767533203 E11.65 Hypertriglyceridemia 302 072392 E78.2 Hyperlipidemia 24156866 E78.5 Chronic constipation 236 364758 K59.09 Obesity 730155977 E66.9 Pain of ri ght knee joint 4148619296 85407 M25.561 Chronic Chronic back pain 878690 002 G89.29 [id number] Dimitrios Cabrera MD [facility] [place] [address] [place] [address] 06/21/2024 11:06:53 06/21/2024 11:57:45 Bilateral osteoarthritis of knees 1880268214 21980 M17.0 Pain of ri ght knee joint 9101209501 63138 M25.561 Pain of le ft knee joint 7433950541 58734 M25.562 Pain of ri ght hip joint 7814777540 31893 M25.551 Trochanter ic bursitis of right hip 5259098637 61761 M70.61 [id number] Aditya Catherine MD [address] [address] 07/15/2024 10:53:35 07/15/2024 12:16:54 Chronic constipation 715883803 K59.09 Chronic back pain 011921 002 G89.29 Obesity 389157724 E66.9 [facility] 603342501 Z76.89 Gallstone 315386964 K80. 20 Right flank pain 8299510 09 R10.9 Kidney stone 15245585 N2 0.0 Rt Impaired mobility 070379 05 Z74.09 Due to pain [id number] Aditya Catherine MD [address] [address] 08/27/2024 14:12:33 08/27/2024 14:51:01 Right flank pain 224027292 R10.9 Kidney stone 80451976 N2 0.0 Rt Gallstone 794651130 K80. 20 Chronic constipation 236 396942 K59.09 Chronic back pain 182353 002 G89.29 Impaired mobility 240686 05 Z74.09 Due to pain Obesity 193518151 E66.9 Hospital i npatient stay within past 30 days 0525179691 106 Z76.89 Gout 87020419 M10.9 Gastroesop hageal reflux disease without esophagitis 186501346 K21.9 End-stage renal disease 73429612 N18.6 History of deep vein thrombosis 713120260 Z86.718 Hyperlipidemia 57938762 E78.5 Hypertriglyceridemia 302 861332 E78.2 [id number] Milly Hidalgo NP [facility] [address] [address] 10/31/2024 10:42:36 10/31/2024 12:31:33 Dyspnea on exertion 18643333 R06.09 Most likely cardiac related-wi ll do r/o for pulmonaryL ab work todayCAT-2 3Mmrc-3PFT for baselineAw are to use Albuterol inhaler as needed-ok to use when sobEncoura ge patient to remain activefoll ow-up once testing is complete-s ooner for any changes in breathing and increase use of inhaler Multiple n odules of lung 995827901 R91.[address] findings from 02/2024 and 06/2024 and continued worsening sob will do CT chest-pt is on Warfarin currently- unable to find recent PT/INR-he is followed by cardiology for coumadin and a-fib Atrial fibrillation 6946 5148 I48.91 continue care with cardiology -must go to ER for any worsening of SOB/chest pain or palpitatio ns-patient left ER yesterday without being seen due to sob-denies any complaints at present except the sob Body mass index 30+ - obesity 382194438 Z68.37 [id number] Aditya Catherine MD [facility] [address] [place] [address] 11/18/2024 11:23:35 11/18/2024 12:04:29 Bronchitis 40742753 J40 Cough 95918442 R05.9 Seborrheic dermatitis of scalp 693241746 L21.0 End-stage renal disease 27239366 N18.6 Atrial fibrillation 4943 6004 I48.91 [id number] Milly Hidalgo NP [facility] [place] [address] [facility] [address] [place] [address] 12/25/2024 11:09:40 12/27/2024 07:59:25 Chronic obstructive pulmonary disease 63634959 J44.9 R06.09 Will start Serevent and use [...] Albuterol- severe symptoms ER Dyspnea on exertion 6074 5006 R06.09 Most likely cardiac related-pf t was done post thoracente sis-Lab work reordered todayCAT-2 7Mmrc-3PFT for baselineAw are to use Albuterol inhaler as needed-ok to use when sobEncoura ge patient to remain activefoll ow-up once testing is complete-s ooner for any changes in breathing and increase use of inhaler Persistent atrial fibrillation 293575690 I48.19 sent to ER due to symptomati c with afibcontin ue care with [facility] Congestive heart failure 91836865 I50.9 [id number] Aditya Catherine MD [address] [address] 01/20/2025 14:50:48 01/20/2025 15:25:41 Eruption of skin of penis 1313416000 R21 Superficia l folliculitis 755032902 L73.9 [id number] Stephie Herron NP [address] [address] 02/26/2025 10:59:00 02/26/2025 12:02:01 Atrial fibrillation 69269321 I48.91 takes warfarin, changed to lovenox in anticipati on of colonoscop y, but procedure was postponed and he resumed warfarin, most recent INR was 8 and he could not reach the cardiologi stpaused warfarin and ate greens and then resumed warfarin at 3mghas had 5 days of warfarin, due to check today at home, he does inr at homeobtain inr and call me back Bilateral osteoarthritis of knees 2330024787 94795 M17.0 knees are bruised with superficia l laceration s (road rash), very sorewill address pain meds and watch and wait, may take 6-8 weeks to feel better, hx of severe arthritis already affection mobilityen courage to use walker not cane for stability 2/2 to increasing number of falls Hang nail 8300701 L03.01 1 local soap and water to digitapply ointmentif worsening call backtrying to avoid oral antibx that will affect warfarin Hematoma 092111651 T14.8 XXA 5 x 3 cm hematoma and bruising to the left flank from previous fallwill monitory closely for signs of infections ee dr catherine in one month for follow up of hematomato ER if signs of infection or worsening hematoma Blood in urine 95752353 R31.9 discussed blood in urine may be related to elevated INR as well as ckdnot currently worseningi f worsening it truly becomes emergency and go to ER [id number] Milly Hidalgo NP [facility] [place] [address] [facility] [address] [place] [address] 03/06/2025 10:24:11 03/06/2025 13:12:29 Chronic obstructive pulmonary disease 54128948 J44.9 Do to increased sob and PFT [...] rest of lab workCT utd-[facility] to maintain vaccines when dueF/u with PMD for any new labsF/u with me in 4 months- use-will call if needs Albuterol (has some at home)Aware to call if any changes in symptoms or increase in use of Albuterol- severe symptoms ER Health Concerns Section Related Observation LastModified by Organization [employer]ossi [employer] LastModified Time None Recorded Concern Status LastModified by Organization Details LastModified Time None Recorded Advance Directives Directive N: Payers Insurance Date Sequence Insurance Name Policy Number Policy Ge Covered Member ID Ge Member ID Guarantor Name 02/26/2025 1 [employer] (MEDICARE REPLACEMENT/A DVANTAGE - PPO) [id number] Juvenal Daigle [id number] Juvenal Daigle Jr 03/06/2025 1 [facility] (MEDICARE REPLACEMENT/A DVANTAGE - PPO) [id number] Juvenal Daigle [id number] Juvenal Daigle Jr 02/26/2025 1 [facility] [id number] Juvenal Daigle [id number] Juvenal Daigle Jr 02/26/2025 1 [place]MED[place] Juvenal Daigle [id number] Juvenal Daigle Jr 03/06/2025 2 [place] WHEN MEDICARE OR MEDICARE REPLACEMENT PRIMARY) Juvenal Daigle [id number] Juvenal Daigle Jr Notes Date Note Type Note Provider Name and Address Organization Details Recorded Time 11/18/2024 text/html ACV: C/o cough, congestion, fatigue, chest pain with deep inspiration for last 2-3 days. Pt denies any known sick contact. Pt has been doing otc meds, but not getting better. Pt doesn't want to go to ED for this. Aditya Catherine MD [address] [place] [address], [phone], [facility] [email or web address] 11/18/2024 12:26:41 12/25/2024 text/html COPDReported bypatient.Severity: severe; [...] sleepiness;decrease in exercise capacity;fatigueNot es:patient admitted to [facility] 11/22/24 for pleural effusion and pneumonia-he had [...] coding Milly Hidalgo NP [address], [facility] [address], [place], [address], [employer] [facility] 12/26/2024 09:21:57 01/20/2025 text/html ACV: C/o rash over his shaft of penis for last 1 week, scratching and itching ++. Denies any discharge/insect bite. No intercourse for last 5-6 yrs. Aditya Catherine MD [address], [facility] [address], [place], [address], [employer] 01/20/2025 15:27:39 02/26/2025 text/html here today for [...] fall Stephie Herron NP [address], [place] [address], [place], [address], [employer] [facility] [email or web address] 02/26/2025 12:06:49 03/06/2025 text/html COPDReported bypatient.Severity: moderate [...] cause.He is still using his BiPap Milly Hidalgo, PAYROLL MACHINE OPERATOR [address] [facility], [facility] [address], [place], [address], [facility] 03/06/2025 11:19:56
[2025-03-14 11:50] VITALS: BP 122/71; PULSE 106; TEMP 36.4; O2SAT 99
--- NOTE | 2025-03-14 12:09 | ED.UPPEXIN ---
HPI - Extremity Injury (Upper) General Chief Complaint: Extremity Injury, Upper <Genesis Eden APRN - Last Filed: 03/14/25 12:11> Stated Complaint: R hand injury <Genesis Eden APRN - Last Filed: 03/14/25 12:11> Time Seen by Provider: 03/14/25 12:05 <Genesis Eden APRN - Last Filed: 03/14/25 12:11> Focused HPI: Patient is a 54-year-old male who was well known to this ER staff. He reports he has right ring finger pain. Patient denies any trauma or injury to the area. He reports he went to his primary care provider who prescribed him with you prior since ointment. Patient reports his symptoms are not improving and he feels like the redness is going down his finger. He endorses a history congestive heart failure, diabetes, and high blood pressure. Patient denies any decreased range of motion in his PIP joints, wrist joint, or numbness/tingling to his digits. GENERAL: Well-appearing, obese, and in no acute distress. HEAD: Normocephalic, atraumatic. CHEST: Clear to auscultation. ?No respiratory distress. HEART: Slightly tachycardic. ? NEURO: ?Alert and oriented x3. Patient screened in triage and initial orders placed.? ?Additional care and disposition to be based upon?diagnostic testing and treatment. <Genesis Eden APRN - Last Filed: 03/14/25 12:11> History of Present Illness HPI narrative: I agree with the above HPI <Montana Mauro MD - Last Filed: 03/14/25 18:10> Related Data Home Medications: Home Medications ?Medication ?Instructions ?Recorded ?Confirmed ?Last Taken ?Type calcitriol 0.25 mcg capsule 0.25 mcg PO QAM 06/04/19 11/22/24 11/22/24 History ergocalciferol (vitamin D2) 1,250 50,000 unit PO WEEKLY 06/04/19 11/22/24 11/18/24 History mcg (50,000 unit) capsule (Vitamin D2) nitroglycerin 0.4 mg sublingual 0.4 mg sublingual Q5-15M PRN Chest 06/04/19 11/22/2423 16:30 History tablet Pain ezetimibe 10 mg tablet (Zetia) 10 mg PO DAILY 09/09/19 11/22/24 11/22/24 History cetirizine 10 mg tablet (All Day 10 mg PO DAILY 12/26/19 11/22/24 11/22/24 History Allergy (cetirizine)) atorvastatin 80 mg tablet 80 mg PO DAILY 11/26/20 11/22/24 11/22/24 History potassium chloride 20 mEq 20 meq PO DAILY Cramps 05/20/23 11/22/24 11/22/24 History tablet,extended release febuxostat 40 mg tablet 40 mg PO QPM 07/25/23 11/22/24 11/21/24 12:00 History linaclotide 72 mcg capsule 72 mcg PO DAILY PRN Diarrhea 07/25/23 11/22/24 Unknown History (Linzess) icosapent ethyl 1 gram capsule 1 g PO QID 02/16/24 11/22/24 11/22/24 History (Vascepa) torsemide 100 mg tablet 100 mg PO DAILY 02/16/24 11/22/24 11/22/24 History omeprazole 20 mg capsule,delayed 20 mg PO DAILY 06/06/24 11/22/24 11/22/24 History release amlodipine 10 mg tablet 10 mg PO HS 07/30/24 11/22/24 11/21/24 History calcium acetate(phosphat bind) 667 667 mg PO QID 07/30/24 11/22/24 11/22/24 History mg capsule glucagon 1 mg/0.2 mL subcutaneous See Rx Instructions .Route 07/30/24 11/22/24 Unknown History auto-injector (Gvoke HypoPen .COMPLEX PRN Hypoglycemia 2-Pack) famotidine 40 mg tablet 40 mg PO HS 08/17/24 11/22/24 11/21/24 History lidocaine 5 % topical patch 1 patch transdermal Q24H 08/17/24 11/22/24 Unknown History aspirin 81 mg capsule 81 mg PO DAILY 08/31/24 11/22/24 11/22/24 History colchicine 0.6 mg capsule 0.6 mg PO 3XW 08/31/24 11/22/24 11/22/24 History gentamicin 0.1 % topical cream 1 applic topical HS 08/31/24 11/22/24 11/22/24 History tamsulosin 0.4 mg capsule 0.4 mg PO BID 08/31/24 11/22/24 11/22/24 09:00 History insulin aspart U-100 100 unit/mL 15 unit subcut TIDWMEAL 09/23/24 11/22/24 11/22/24 History (3 mL) subcutaneous pen (Novolog FlexPen U-100 Insulin aspart) metoprolol tartrate 50 mg tablet 50 mg PO Q12H 09/23/24 11/22/24 11/22/24 09:00 History insulin NPH isoph U-100 human 100 40 unit subcut DAILY 11/22/24 11/22/24 11/21/24 History unit/mL (3 mL) subcutaneous pen (Humulin N NPH U-100 Insulin KwikPen) warfarin 5 mg tablet 3 mg PO DAILY 11/22/24 11/22/24 11/22/24 09:00 History <Genesis Eden, TRACY - Last Filed: 03/14/25 12:11> Allergies/Adverse Reactions: Allergies Allergy/AdvReac Type Severity Reaction Status Date / Time allopurinol Allergy Severe Other Verified 03/14/25 11:44 iodine Allergy Severe Rash Verified 03/14/25 11:44 iohexol (From CONTRAST - CT, Allergy Severe Difficulty Verified 03/14/25 11:44 XRAY) Breathing ticagrelor Allergy Intermediate Rash Verified 03/14/25 11:44 <Genesis Eden APRN - Last Filed: 03/14/25 12:11> Review of Systems Review of Systems: All systems reviewed & are unremarkable except as noted in HPI and below <Montana Mauro MD - Last Filed: 03/14/25 18:10> [facility] Past Medical History Medical History: Medical History Chronic back pain Hematuria Right hand dominant Insulin dependent diabetes mellitus Chronic anticoagulation Paroxysmal atrial fibrillation Renal osteodystrophy Seizure X1 with etiology unknown End-stage renal disease on peritoneal dialysis Essential hypertension Gout Deep venous thrombosis Chronic right popliteal DVT. Coronary artery disease History of several stents including complex procedure at [facility]/ stenting of a heavily calcified CX on OM using shockwave treatment. Gastroesophageal reflux disease Congestive heart failure Echocardiogram May 2017 EF of 50% with hypokinetic apical, inferior and basal inferior lateral segment, mild enlargement of left atrium. Anemia in chronic kidney disease Type 1 diabetes mellitus Onset around age 13. Diabetic retinopathy Diabetic peripheral neuropathy Obstructive sleep apnea With inconsistent CPAP use. Secondary hyperparathyroidism of renal origin Anxiety Arthritis Hyperlipidemia <Genesis Eden, SHORT GOODS DRIER - Last Filed: 03/14/25 12:11> Surgical History Surgical History: Surgical History S/P triple vessel bypass Sep 2023; [facility]Bap History of coronary angioplasty with insertion of stent Drug-eluting stents for high-grade OM 99% occlusion 05/2022. History of hernia repair Peritoneal dialysis catheter in place History of cataract extraction With lens implant History of open reduction and internal fixation (ORIF) procedure (1982) Left lower extremity fracture. And the right hip pinning when he was in the 8th grade History of arthroscopy of left knee History of anterior cruciate ligament surgery (2000) Left knee History of bilateral carpal tunnel release Right 05/03/2018. Left 06/02/2018. History of appendectomy (2006) History of cardiac catheterization 01/21/2021 catheterization at [facility], Dr. Hoover done: Little change from prior catheterization. Patent stents in the RCA and PDA. Previously jailed posterolateral is occluded and development of a 50% stenosis of a branch of om 1. Normal LV function. :August 2019 demonstrated patent stents with 40% stenosis of 1 vessel with no stents or angioplasty performed per patient report. :November 2018 at [facility] - stent x3. :March 2017 demonstrating mild diffuse coronary disease 80% lesion small sub branch of obtuse marginal 1 and 90% stenosis distal RCA into the origin of the PDA with PTCA and stent to the RPDA/distal RCA performed by Dr. Petit. <Genesis Eden, SHORT GOODS DRIER - Last Filed: 03/14/25 12:11> Family History Family History: Family History Father , in his late 60s Acute myocardial infarction Premature coronary artery disease; <65yo CHF (congestive heart failure) Dementia Hypertension S/P triple vessel bypass 1980s Mother Lung cancer Hypertension Daughter Celiac disease <Genesis Eden, SHORT GOODS DRIER - Last Filed: 03/14/25 12:11> Social History Social History: Social History Social History: Surrogate medical decision maker: Hodan Daigle (daughter) or Lorne Daigle (brother). Code status: Full code. Smoking status: Never smoker Second hand tobacco smoke exposure: No Alcohol intake: never Substance use: never Substance use type: does not use Do You Feel Safe in your Home?: Yes Lack of Transportation: No Lack of Food: Never True Current Housing: I Have Housing Concerned About Future Housing: No Difficulty Paying Gas/Electric Bills: No Difficulty Paying for Meds: No Currently Unemployed: No Education: High School Diploma/GED Difficulty w/ Childcare or Family Care: No Living arrangements: alone Additional living arrangements comments: He is single and has 3 children. 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 Spiritual care concerns: No Agree to blood products: Yes <Genesis Eden, SHORT GOODS DRIER - Last Filed: 03/14/25 12:11> Exam Narrative: APPEARANCE: Well appearing, no pain, no distress, well-nourished. HEAD: normocephalic, atraumatic. EYES: PERRLA/EOMI, conjunctivae clear. NOSE: Normal no drainage EARS:TMS clear with good light reflex. THROAT: Pharynx clear, no exudate. NECK: Supple. No adenopathy, no masses. RESPIRATORY: Airway patent, respirations nonlabored. Clear to auscultation bilaterally, no rales, rhonchi, wheezing. CARDIOVASCULAR: Regular rate and rhythm without murmurs rubs or gallops. ABDOMINAL: Soft, nontender, nondistended, normal bowel sounds MUSCULOSKELETAL: Moves all extremities. Strength/ROM intact, No edema, No calf tenderness. NEURO: Alert. Cranial nerves II through XII intact. Good gait. Good coordination SKIN: Mild erythema distal right ring finger. No paronychia to be drained <Montana Mauro MD - Last Filed: 03/14/25 18:10> Course Vital Signs Vital signs: Vital Signs Temperature 97.6 F 03/14/25 11:50 Pulse Rate 106 H 03/14/25 11:50 Blood Pressure 122/71 03/14/25 11:50 Pulse Oximetry 99 03/14/25 11:50 Temperature 97.9 F 03/14/25 14:55 Pulse Rate 92 03/14/25 14:55 Respiratory Rate 18 03/14/25 14:55 Blood Pressure 126/80 03/14/25 14:55 Pulse Oximetry 98 03/14/25 14:55 <Genesis Eden APRN - Last Filed: 03/14/25 12:11> Vital Signs Temperature 97.6 F 03/14/25 11:50 Pulse Rate 106 H 03/14/25 11:50 Blood Pressure 122/71 03/14/25 11:50 Pulse Oximetry 99 03/14/25 11:50 Temperature 97.9 F 03/14/25 14:55 Pulse Rate 92 03/14/25 14:55 Respiratory Rate 18 03/14/25 14:55 Blood Pressure 126/80 03/14/25 14:55 Pulse Oximetry 98 03/14/25 14:55 <Montana Mauro MD - Last Filed: 03/14/25 18:10> MDM - Extremity Injury (Upper) MDM Narrative Medical decision making narrative: 54-year-old male presents emergency department for evaluation for worsening paronychia of the right ring finger. Attempted incision and drainage with no purulent results. Patient was switched from topical antibiotic to oral antibiotic. Patient was encouraged close follow-up with his primary care physician for follow-up. <Montana Mauro MD - Last Filed: 03/14/25 18:10> Differential Diagnosis Differential diagnosis: Likely other (Paronychia, cellulitis, abscess) <Montana Mauro MD - Last Filed: 03/14/25 18:10> Discharge Plan Discharge Clinical Impression: Cellulitis <Genesis Eden APRN - Last Filed: 03/14/25 12:11> Patient Disposition: Home <Genesis Eden APRN - Last Filed: 03/14/25 12:11> Condition: Stable <Genesis Eden APRN - Last Filed: 03/14/25 12:11> Instructions: Antibiotic Form, Paronychia (ED), Cellulitis (ED) <Genesis Eden APRN - Last Filed: 03/14/25 12:11> Additional Instructions: Antibiotic as directed until completed. Have close follow-up with your primary care physician for a wound check. <Genesis Eden APRN - Last Filed: 03/14/25 12:11> Patient Language: Albanian <Genesis Eden APRN - Last Filed: 03/14/25 12:11> Prescriptions: New clindamycin HCl [Cleocin HCl] 150 mg capsule 150 mg PO Q6H 7 Days Qty: 28 0RF No Action calcitriol 0.25 mcg Capsule 0.25 mcg PO QAM ergocalciferol (vitamin D2) [Vitamin D2] 50,000 unit Capsule 50,000 unit PO WEEKLY Rx Instructions: on mondays at 0900 nitroglycerin 0.4 mg Tablet, Sublingual 0.4 mg SUBLINGUAL Q5-15M PRN (Reason: Chest Pain) Patient Comments: pt states he needs his prescription renewed (DME) Omnipod 5 G6 Pods (Gen 5) Cartridge SUBCUT Qty: 45 2RF Rx Instructions: Change every 48 hours metoprolol tartrate 50 mg tablet 50 mg PO Q12H Patient Comments: patient states he takes 50mg BID (0900, 2100) not 100mg Daily insulin aspart U-100 [Novolog FlexPen U-100 Insulin] 100 unit/mL (3 mL) insulin pen 15 unit subcut TIDWMEAL Rx Instructions: Take 12 units premeal +SSI 150-170: 1 unit 171-190: 2 units 191-210: 3 units 210-230: 4 units 231-250: 5 units 251-270: 6 units 271-290: 7 units 291-310: 8 units 310-330: 9 units 331-350: 10 units 351-370: 11 units 371-390: 12 units 391-410: 13 units >411 14 units ezetimibe [Zetia] 10 mg Tablet 10 mg PO DAILY cetirizine [All Day Allergy (cetirizine)] 10 mg Tablet 10 mg PO DAILY atorvastatin 80 mg tablet 80 mg PO DAILY albuterol sulfate [ProAir HFA] 90 mcg/actuation HFA aerosol inhaler 1 inh inhalation QID PRN (Reason: shortness of breath or wheezing) Qty: 8.5 0RF febuxostat 40 mg tablet 40 mg PO QPM Linzess 72 mcg capsule 72 mcg PO DAILY PRN (Reason: Diarrhea) omeprazole 20 mg capsule,delayed release(DR/EC) 20 mg PO DAILY aspirin 81 mg capsule 81 mg PO DAILY colchicine 0.6 mg capsule 0.6 mg PO 3XW Rx Instructions: monday, monday, fridays gentamicin 0.1 % cream 1 applic topical HS tamsulosin 0.4 mg capsule 0.4 mg PO BID Patient Comments: 0900, 1700 potassium chloride 20 mEq tablet extended release 20 meq PO DAILY torsemide 100 mg tablet 100 mg PO DAILY icosapent ethyl [Vascepa] 1 gram capsule 1 g PO QID amlodipine 10 mg tablet 10 mg PO HS Gvoke HypoPen 2-Pack 1 mg/0.2 mL auto-injector See Rx Instructions .ROUTE .COMPLEX PRN (Reason: Hypoglycemia) Rx Instructions: INJECT 1 MG(0.2 ML) UNDER THE SKIN ONCE A SINGLE DOSE, MAY REPEAT ONCE AFTER 15 MINUTES IF NO RESPONSE calcium acetate(phosphat bind) 667 mg capsule 667 mg PO QID cyclobenzaprine 10 mg tablet 5 - 10 mg PO TID PRN (Reason: muscle spasm) Qty: 10 0RF famotidine 40 mg tablet 40 mg PO HS lidocaine 5 % adhesive patch,medicated 1 patch transdermal Q24H Patient Comments: Back warfarin 5 mg tablet 3 mg PO DAILY Humulin N NPH Insulin KwikPen 100 unit/mL (3 mL) insulin pen 40 unit subcut DAILY Patient Comments: Patient states it is 40 not 30 Rx Instructions: take 30 units before peritoneal dialysis cefdinir 300 mg capsule 300 mg PO Q12H Qty: 20 0RF (DME) pen needle, diabetic [BD Lucrecia 2nd Gen Pen Needle] 32 gauge x 5/32 needle See Rx Instructions .ROUTE .COMPLEX Qty: 400 1RF Dose Instruction: TO ADMINISTER INSULIN DIRECTED Rx Instructions: TO ADMINISTER INSULIN 4 times daily (DME) Pricing Assistantcom G6 Transmitter Device See Rx Instructions .Route Qty: 1 0RF Rx Instructions: change every 90 days levothyroxine 25 mcg tablet 25 mcg PO DAILY Qty: 90 1RF insulin glargine U-300 conc [Toujeo SoloStar U-300 Insulin] 300 unit/mL (1.5 mL) insulin pen 50 unit subcut DAILY 90 Days Qty: 18 2RF (DME) OneTouch Verio test strips Strip See Rx Instructions .Route Qty: 300 0RF Rx Instructions: test bs 3 times daily (DME) Dexcom G6 Sensor Device See Rx Instructions .Route Qty: 9 0RF Rx Instructions: change every 10 days <Genesis Eden APRN - Last Filed: 03/14/25 12:11> Follow-up/Referrals: Matthew,MD Aditya [Primary Care Provider] - <Genesis Eden APRN - Last Filed: 03/14/25 12:11>
--- OUTSIDE RECORDS SUMMARY | 2025-03-14 13:34 | XMS_ITS | Clinical Summary ---
Author Organization [facility] Address [address] [place] [address] Care Team Providers Care Line Installation Supervisor Name Role Phone Aditya Castro MD Primary Care Provider [phone] Allergies Active Allergy Reactions Criticality Noted Date Comments Allopurinol Shortness of Breath/Wheezing,Othe r (See Comments) High 07/31/2019 Shuts my kidneys down per patient. 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 Active clopidogrel (PLAVIX) 75 mg Tablet Take [...] Take 50,000 Units by mouth. Active Insulin [place], Disposable, (TRUEPLUS PEN NEEDLE) 31 gauge x [...] (06/29/2022): Added automatically from request for surgery [id number] Right upper quadrant pain 09/24/2020 Pre-transplant evaluation for kidney transplant 03/24/2020 Overview (06/29/2022): Images from the original note were not included. Juvenal Daigle 1970 Referring Telecommunications Facility Examiner: Leandro Reyes Dialysis Info: Type: PD Time: 160 days (11/05/2019) Blood Type: A Body mass index is 37.8 kg/m . ALERTS Insulator Tester: Vashti Lizama NP Past Medical History: Diagnosis Date Anemia Arthritis Arthropathy osteo. back and knees see Dr. Norton CAD (coronary artery disease) Community acquired pneumonia 2017 [facility] hospitalized with double pneumonia Congestive heart failure Coronary artery disease Diabetes mellitus type 1 teens dx when he was 13. Insulin since he was dx. Insulin pump currently with dexacom. Vashti Lizama NP is team assistant. DM (diabetes mellitus) TYPE 1 DVT (deep venous thrombosis) 2017 [facility]. ESRD on peritoneal dialysis Gout History of blood transfusion 2017 during admission for [place] HLD (hyperlipidemia) HTN (hypertension) Hypercholesteremia 5 years on med Hypertension 30's on medications. Kidney disease Myocardial infarction 2017 [facility]. Stent x1 placed. Neuropathy feet [...] file Gets together: Not on file Attends mormon service: Not on file Active member of [...] Impression: It is the impression of this drug abuse social worker that Juvenal Daigle has several [...] advised of safety concerns regarding immunosuppressants. Plan: outreach worker to provide supportive services as needed. Patient appears to be a reasonable candidate for transplant from a psychosocial perspective. -Post transplant arrangement forms are needed prior to being listed. Psychiatric Consult Recommended: No Transplant Talcer: Radha Roper LCSW RD:05/14/2020 BMI= 40.0, Class [...] 177.8 cm (5' 10) 06/29/2022 6:00 PM AGENCY MANAGER Body Mass Index 37.74 06/29/2022 6:00 PM AGENCY MANAGER Plan of Treatment Health Maintenance Due [...] Tdap) 10/21/2029 10/22/2019 Insurance AENA O [facility] Address: [facility] [id number] [place] [address] Advance Directives For more information, please contact: [phone] * Full Code (Latest Code Status on File) Date Activated Date Inactivated Comments 06/29/2022 2:49 PM 07/08/2022 4:30 PM Care Teams Line Installation Supervisor Relationship Specialty Start Date End Date Aditya Castro MD PCP - General Student in an Organized Health Care Education/Training Program 09/11/18
--- OUTSIDE RECORDS SUMMARY | 2025-03-14 13:34 | XMS_ITS | Encounter Summary ---
Author Organization [facility] Address [address] [place] [address] Phone Care Team Providers Care Correctional Officer Sergeant Name Role Phone Unavailable Primary Care Provider Unavailabl e Reason for Visit * Reason Comments Med Refill Encounter Details Date Type Department Care Team (Late st Contact Info) Description 01/25/2019 Refill [facility] [address] [facility] 1 [place] [address] Leandro Reyes MD [address] [facility] 1 [place] [address] Social History Tobacco Use Types [...]
--- OUTSIDE RECORDS SUMMARY | 2025-03-14 13:34 | XMS_ITS | Encounter Summary ---
Author Organization [facility] Address [address] [address] Phone Care Team Providers Care Radar Air Traffic Controller Name Role Phone Unavailable Primary Care Provider Unavailabl e Reason for Visit * Reason Comments Med Refill Encounter Details Date Type Department Care Team (Late st Contact Info) Description 10/08/2019 Refill [facility] [address] [address] Leandro Reyes MD [address] [address] Social History Tobacco Use Types Packs/Day Years [...]
--- OUTSIDE RECORDS SUMMARY | 2025-03-14 13:34 | XMS_ITS | Encounter Summary ---
Author Organization [facility] Address [address], [place] [address] Phone Care Team Providers Care Ultrasound Spec Name Role Phone Unavailable Primary Care Provider Unavailabl e Reason for Visit * Reason Comments Med Refill Encounter Details Date Type Department Care Team (Late st Contact Info) Description 02/13/2019 Refill [facility] [address] [address] Leandro Reyes MD [address] [address] Social History Tobacco Use Types Packs/Day Years [...]
--- OUTSIDE RECORDS SUMMARY | 2025-03-14 13:34 | XMS_ITS | Encounter Summary ---
Author Organization [facility] Address [address], [place] [address] Phone Care Team Providers Care Retail Merchandising Coordinator Name Role Phone Unavailable Primary Care Provider Unavailabl e Reason for Visit * Reason Comments Med Refill Encounter Details Date Type Department Care Team (Late st Contact Info) Description 02/24/2020 Refill [facility] [address] [address] Leandro Reyes MD [address] [address] Social History Tobacco Use Types Packs/Day Years [...]
--- OUTSIDE RECORDS SUMMARY | 2025-03-14 13:34 | XMS_ITS ---
Author Organization [facility] Address [address] [place] [address] Care Team Providers Care Intramural Director Name Role Phone Aditya Castro MD Primary Care Provider [phone] Alondra Lambert RN Unavailable [phone] Shannon Brock MD, [place] P. Unavailable Leandro Reyes MD Unavailable [phone] Dialysis Access Sites Type Status Location Placement Date Removal Da te Peritoneal Dialysis Catheter Continuous cycling Active Hemodialysis Cath Double Inactive Right N emiliano (side) - Anterior 06/18/2022 06/25/2022 Hemodialysis Cath Triple Inactive Neck - Anterior 202106/16/2022 Procedures Procedure Name Priority Date/Time Associated Diagnosis Comments HEPATITIS C ANTIBODY Routine 07/29/2024 11:01 AM [facility] End stage renal disease (HCC) EGFR Routine 07/29/2024 11:01 AM [facility] End stage renal disease (HCC) HEMOGLOBIN A1C Routine 07/29/2024 11:01 AM [facility] End stage renal disease (HCC) LIPID PANEL Routine 07/29/2024 11:01 AM [facility] End stage renal disease (HCC) PSA SCREEN Routine 07/29/2024 11:01 AM [facility] End stage renal disease (HCC) TSH Routine 10/27/2023 2:30 AM VIDEO GAME ANIMATOR from Last 3 Months or Most Recently [...] PUMP: Continue Omnipod 5 insulin pump with iMove G6 CGM at home settings: TIME BASAL [...] 1 tablet (25 mcg total) by mouth contact lens curve grinder before breakfast 30 tablet 1 11/04/19 24 [...] mg SL tablet 12/28/19 18 Active peg [id number]-um ycerin (ARTIFICAL TEARS) 1-0.2-0.2 % ophthalmic solution 1 drop 4 (four) times a day 07/07/20 22 Active potassium chloride ER 20 mEq CR tablet Active Active Problems Problem Noted Date Diagnosed Date End stage renal disease 07/29/2024 Nonrheumatic aortic valve stenosis 11/22/2023 Status post aortic valve replacement 11/22/2023 Status post coronary artery bypass grafting 10/2023 CAD in [place] artery 10/13/2023 Anemia 06/22/2022 Assessment & Plan (06/29/2022 10:12 AM [facility]AME [employer]): Stable, likely 2/2 anemia from ESRD, no [...] 06/22/2022 Assessment & Plan (06/29/2022 10:12 AM VIDEO GAME ANIMATOR): - Renal consulted, s/p CRRT in the ICU now back on PD. Tolerated well and nephrology following - Trialysis catheter removed - Continue vitamins for renal bone mineral disease. Assessment & Plan (06/28/2022 3:29 PM VIDEO GAME ANIMATOR): - Renal consulted, s/p CRRT in the [...] 06/22/2022 Assessment & Plan (06/29/2022 10:12 AM VIDEO GAME ANIMATOR): C/b cardiogenic shock requiring impella in the setting of cath and AHRF 2/2 pulmonary edema, now resolved. TTE demonstrating recovered EF 65% with grade I diastolic dysfunction. - metop as above - continue low dose losartan 12.5mg daily, ok per nephro. Tolerating well - volume management per PD Assessment & Plan (06/28/2022 3:29 PM VIDEO GAME ANIMATOR): C/b cardiogenic shock requiring impella in the [...] 06/22/2022 Assessment & Plan (06/29/2022 10:12 AM VIDEO GAME ANIMATOR): Converted to NSR overnight on 06/24. CHADsVASc of 4 not on anticoagulation prior to admission. - cardiology consulted - recommended ongoing rate control - holding off on a/c with high risk for bleeding while on DAPT - reduced metop to 25mg BID in the setting of hypotension, HR 70s NSR Assessment & Plan (06/28/2022 3:30 PM VIDEO GAME ANIMATOR): Converted to NSR overnight on 06/24. CHADsVASc [...] 08/22/2021 Assessment & Plan (06/29/2022 10:11 AM VIDEO GAME ANIMATOR): With recurrent chest pain post-cath. He has [...] today Assessment & Plan (06/28/2022 3:30 PM VIDEO GAME ANIMATOR): With recurrent chest pain post-cath. He has [...] 06/22/2022 Assessment & Plan (06/29/2022 10:11 AM VIDEO GAME ANIMATOR): Secondary to NSTEMI, s/p Impella since removed on 06/10. Resolved. Assessment & Plan (06/23/2022 4:55 PM CDT): Secondary to NSTEMI, s/p Impella since removed on 06/10. Resolved. Assessment & Plan (06/22/2022 8:22 PM CDT): -Secondary to NSTEMI, s/p Impella since removed on 06/10. Acute hypoxemic respiratory failure 06/09/2022 Assessment & Plan (06/29/2022 10:12 AM VIDEO GAME ANIMATOR): Secondary to ACS and flash pulmonary edema, [...] (06/10/2022): Added automatically from request for surgery [id number] Abnormal cardiovascular stress test 12/29/2020 Overview (12/29/2020): Added automatically from request for surgery [id number] Coronary artery disease of n ative artery of [place] heart with stable angina pectoris ([facility]) 05/23/2017 History of coronary artery [...] 01/18/2013 Assessment & Plan (06/29/2022 10:12 AM VIDEO GAME ANIMATOR): A1c well controlled on admission. He uses [...] session Assessment & Plan (06/28/2022 3:28 PM VIDEO GAME ANIMATOR): A1c well controlled on admission. He uses [...] a long term (including now)? No 10/16/2023 Housing Stability Vital Sign Answer Rubens e Recorded In the last 12 months, was t here a time when you were not able to pay the mortgage or rent on time? No 08/01/2024 In the past 12 months, how m any times have you moved where you were living? 1 08/01/2024 At any time in the past 12 m [facility], were you homeless or living in a long term (including now)? No 08/01/2024 Personal Safety Answer Date Recorded Have you ever been in or are you currently in a harmful physical or emotional relationship or is someone making you feel afraid or unsafe? 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 Male 3:42 AM VIDEO GAME ANIMATOR Gender Identity Not on file Sexual Orientation Not on file Last Filed Vital Signs Vital Sign Reading Time Taken Comments Blood Pressure 122/75 07/29/2024 1:00 PM [facility]AME [employer]ATOR Pulse 116 07/29/2024 1:00 PM [employer]IDEO GAME ANIMATOR Temperature 36.8 C (98.2 F) 07/29/2024 1:00 PM VIDEO GAME ANIMATOR Respiratory Rate 16 12/01/2023 11:1 3 AM CDT Oxygen Saturation 96% 12/01/2023 11: 13 AM CDT Inhaled Oxygen Concentration - - Weight 121.2 kg (267 lb 1.6 oz) 07/29/2024 1:00 PM VIDEO GAME ANIMATOR Height 177.8 cm (5' 10) 07/29/2024 1:00 PM VIDEO GAME ANIMATOR Body Mass Index 38.32 07/29/2024 1:00 PM VIDEO GAME ANIMATOR Results * (ABNORMAL) eGFR (07/29/2024 11:01 AM VIDEO GAME ANIMATOR) eGFR 7(L) >=60 mL/min/1. 73 m2 Comment: [...] reviewed 2021. Blood 07/29/2024 11:0 1 AM [facility]AME [employer]IM[employer] 07/29/2024 11:33 AM [facility]AME [employer]IMATOR Jossie King MD LAB BLOOD ORDERABL ES Final Result [facility] Department [place] [address] * PSA screen (07/29/2024 11:01 AM VIDEO GAME ANIMATOR) PSA-Total 0.55 <=3.90 ng/mL Comment: Interpretive Data [...] revised 21. Blood 07/29/2024 11:0 1 AM VIDEO GAME ANIMATOR 07/29/2024 11:33 AM VIDEO GAME ANIMATOR Narrative [facility] - 07/29/2024 12:39 PM VIDEO GAME ANIMATOR This lab is being obtained as part of a Kidney transplant evaluation, is time sensitive, and should only be drawn during the evaluation visit at [address] Jossie King MD LAB BLOOD ORDERABL ES Final Result Performing Organization Address [facility] Co de Phone Number [facility] [place] [address] * Hepatitis C antibody Blood (07/29/2024 11:01 AM VIDEO GAME ANIMATOR) [facility] Hep C Ab Nonreactive Nonreactive Comment:Antibodies to HCV no t detected. Does NOT exclude the possibility of recent exposure to HCV. Current interpretive data was last revised on 22 Blood 07/29/2024 11:0 1 AM VIDEO GAME ANIMATOR 07/29/2024 11:32 AM VIDEO GAME ANIMATOR Narrative [facility] - 07/29/2024 12:47 PM VIDEO GAME ANIMATOR This lab is being obtained as part of a Kidney transplant evaluation, is time sensitive, and should only be drawn during the evaluation visit at [address] Jossie King MD LAB MICROBIOLOGY - GENERAL ORDERABLES Final Result Performing Organization Address City/[facility]/ZIP Co de Phone Number [place] [address] * (ABNORMAL) Hemoglobin A1c (07/29/2024 11:01 AM VIDEO GAME ANIMATOR) [facility] Hgb A1C 9.0(H) 4.0 - 5.6 % [...] fasting glucose. Blood 07/29/2024 11:0 1 AM VIDEO GAME ANIMATOR 07/29/2024 11:34 AM VIDEO GAME ANIMATOR Narrative [facility] - 07/29/2024 11:53 AM VIDEO GAME ANIMATOR This lab is being obtained as part of a Kidney transplant evaluation, is time sensitive, and should only be drawn during the evaluation visit at [facility] us Jossie King MD LAB BLOOD ORDERABL ES Final Result [facility] Department [place] [address] * (ABNORMAL) Lipid panel (07/29/2024 11:01 AM VIDEO GAME ANIMATOR) Cholesterol 114 30 - 199 mg/dL Comment: [...] on 2018. HDL 29(L) >=40 mg/dL [facility] Comment: Interpretive Data Ages < or [...] 2018. LDL, calculated 71 <=129 mg/dL [facility] Comment: Interpretive Data Ages < or [...] on 2024. Non-HDL Cholesterol 85 mg/dL [facility] Comment: Interpretive Data Ages < or [...] last revised on 2018. Chol/HDL ratio [address] [facility] Blood 07/29/2024 11:0 1 AM VIDEO GAME ANIMATOR 07/29/2024 11:33 AM VIDEO GAME ANIMATOR Narrative [facility] - 07/29/2024 12:10 PM VIDEO GAME ANIMATOR This lab is being obtained as part of a Kidney transplant evaluation, is time sensitive, and should only be drawn during the evaluation visit at [facility] us Jossie King MD LAB BLOOD ORDERABL ES Final Result [facility] Department [place] [address] * (ABNORMAL) TSH (10/27/2023 2:30 AM VIDEO GAME ANIMATOR) Pathologist [facility] Thyroid Stimulating Hormone 13.20(H) 0.30 - 4.20 mcIUnit/mL Blood 10/27/2023 2:30 AM VIDEO GAME ANIMATOR 10/27/2023 2:42 AM VIDEO GAME ANIMATOR us Lorne Mcnulty MD LAB BLOOD ORDERABLES Final Result [facility] [address] Department [place] [address] from Last 3 Months or Most Recently Relevant to Health Maintenance
--- OUTSIDE RECORDS SUMMARY | 2025-03-14 13:34 | XMS_ITS | Clinical Summary ---
Author Organization [facility] Address [address] [place] [address] Care Team Providers Care Assistant Professor Of Marine Biology Name Role Phone Aditya Castro MD Primary Care Provider [phone] Alondra Lambert RN Unavailable [phone] Shannon Brock MD, Hamelt P. Unavailable [phone] Leandro Reyes MD Unavailable [phone] Allergies Active Allergy Reactions Criticality Noted Date [...] PUMP: Continue Omnipod 5 insulin pump with [employer] G6 CGM at home settings: TIME BASAL [...] 1 tablet (25 mcg total) by mouth monkey breeder before breakfast 30 tablet 1 11/04/19 24 [...] mg SL tablet 12/28/19 18 Active peg 347-fmjtuzpjludq-hr ycerin (ARTIFICAL TEARS) 1-0.2-0.2 % ophthalmic solution 1 drop 4 (four) times a day 07/07/20 22 Active potassium chloride ER 20 mEq CR tablet Active Active Problems Problem Noted Date Diagnosed Date End stage renal disease 07/29/2024 Nonrheumatic aortic valve stenosis 11/22/2023 Status post aortic valve replacement 11/22/2023 Status post coronary artery bypass grafting 10/2023 CAD in circle artery 10/13/2023 Anemia 06/22/2022 Assessment & Plan (06/29/2022 10:12 AM EXPORT CLERK): Stable, likely 2/2 anemia from ESRD, no [...] 06/22/2022 Assessment & Plan (06/29/2022 10:12 AM EXPORT CLERK): - Renal consulted, s/p CRRT in the ICU now back on PD. Tolerated well and nephrology following - Trialysis catheter removed - Continue vitamins for renal bone mineral disease. Assessment & Plan (06/28/2022 3:29 PM EXPORT CLERK): - Renal consulted, s/p CRRT in the [...] 06/22/2022 Assessment & Plan (06/29/2022 10:12 AM EXPORT CLERK): C/b cardiogenic shock requiring impella in the setting of cath and AHRF 2/2 pulmonary edema, now resolved. TTE demonstrating recovered EF 65% with grade I diastolic dysfunction. - metop as above - continue low dose losartan 12.5mg daily, ok per nephro. Tolerating well - volume management per PD Assessment & Plan (06/28/2022 3:29 PM EXPORT CLERK): C/b cardiogenic shock requiring impella in the [...] 06/22/2022 Assessment & Plan (06/29/2022 10:12 AM EXPORT CLERK): Converted to NSR overnight on 06/24. CHADsVASc of 4 not on anticoagulation prior to admission. - cardiology consulted - recommended ongoing rate control - holding off on a/c with high risk for bleeding while on DAPT - reduced metop to 25mg BID in the setting of hypotension, HR 70s NSR Assessment & Plan (06/28/2022 3:30 PM EXPORT CLERK): Converted to NSR overnight on 06/24. CHADsVASc [...] 08/22/2021 Assessment & Plan (06/29/2022 10:11 AM EXPORT CLERK): With recurrent chest pain post-cath. He has [...] today Assessment & Plan (06/28/2022 3:30 PM EXPORT CLERK): With recurrent chest pain post-cath. He has [...] 06/22/2022 Assessment & Plan (06/29/2022 10:11 AM EXPORT CLERK): Secondary to NSTEMI, s/p Impella since removed on 06/10. Resolved. Assessment & Plan (06/23/2022 4:55 PM CDT): Secondary to NSTEMI, s/p Impella since removed on 06/10. Resolved. Assessment & Plan (06/22/2022 8:22 PM CDT): -Secondary to NSTEMI, s/p Impella since removed on 06/10. 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 He uses [...] session Assessment & Plan (06/28/2022 3:28 PM EXPORT CLERK): A1c well controlled on admission. He uses [...] Type Department Care Team Description 02/20/2025 Telephone [facility] Transplant Kidney [id number] [place] [address] Alondra Lambert, LUAN 02/20/2025 Telephone [facility] Transplant Kidney [id number] [place] [address] Alondra Lambert, LUAN 02/13/2025 Telephone Cardiovascular and Thoracic Surgery [address] [place] [address] Lorne Mcnulty MD Med Refill [...] In the past 12 months has e [employer], oil, or water [employer] threatened to shut off services in your home? No 08/01/2024 Social Connection and Isolation Panel [NHANES] A nswer Date Recorded In a typical week, how many times do you talk on the phone with family, friends, or neighbors? Twice a week 08/01/2024 How often do you get together with friends or re latives? Once a week 08/01/2024 How often do you attend spiritism or rastafarian serv ices? Never 08/01/2024 Do you belong [...] any time in the past 12 m [facility], were you homeless or living in a nursing home (including now)? No 08/01/2024 Personal Safety Answer Date Recorded Have you ever been in or are you currently in a harmful physical or emotional relationship or is someone making you feel afraid or unsafe? 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 Male 3:42 AM EXPORT CLERK Gender Identity Not on file Sexual Orientation Not on file Obstetrics History Last Filed Vital Signs Vital Sign Reading Time Taken Comments Blood Pressure 122/75 07/29/2024 1:00 PM EXPORT CLERK Pulse 116 07/29/2024 1:00 PM EXPORT CLERK Temperature 36.8 C (98.2 F) 07/29/2024 1:00 PM EXPORT CLERK Respiratory Rate 16 12/01/2023 11:1 3 AM CDT Oxygen Saturation 96% 12/01/2023 11: 13 AM CDT Inhaled Oxygen Concentration - - Weight 121.2 kg (267 lb 1.6 oz) 07/29/2024 1:00 PM EXPORT CLERK Height 177.8 cm (5' 10) 07/29/2024 1:00 PM EXPORT CLERK Body Mass Index 38.32 07/29/2024 1:00 PM EXPORT CLERK Plan of Treatment Health Maintenance Due [...] 03/23/2017, 03/26/2015 Medical Devices Implanted Type Area Fraud Manager Device Identifier Shelf Expiration Date Model / Serial / Lot Kyle Vascular Device Clsr Perclose Prostyle Sut-Mediatd Closure-Repair Sys 43093-41 - [id number] Implanted:Qty: 1 on 06/10/2022 by Champ Osborne MD PhD at [facility] Other - see comments Right: Femoral [employer] 01/19/2024 [id number] / / [id number] [employer] Mary Synergy Xd Monorail 2.5mm 48mm 144cm Delivery System 1 Access [id number] - [id number] Implanted:Qty: 1 on 06/07/2022 by Champ Osborne MD PhD at [facility] Stent [employer] Mary 10/27/2023 [id number] / / [id number] [employer] Mary Synergy Xd Monorail 3mm 24mm 144cm Delivery System 1 Access Port [id number] - [id number] Implanted:Qty: 1 on 06/07/2022 by Champ Osborne MD PhD at [facility] Stent [employer] Mary 07/28/2023 [id number] / / [id number] [employer] Mary Synergy Xd Monorail 2.5mm 12mm 144cm Delivery System 1 Access [id number] - [id number] - [id number] Implanted:Qty: 1 on 06/07/2022 by Champ Osborne MD PhD at [facility] Stent [employer] Mary 05/03/2023 [id number] / [id number] / [id number] [facility] Mary [id number] Device Closure Angio-Seal Vip Bondek-Plus Polyglyd L70 Cm Od6 Fr Odsec.035 In Vascular - [id number] Implanted:Qty: 1 on 01/21/2021 by Hamlet Ortega Jr., MD at [facility] Left: Groin [employer] Mary [id number] / / Kyle Vascular Device Clsr Perclose Prostyle Sut-Mediatd Closure-Repair Sys 85048-14 - [id number] Implanted:Qty: 1 on 06/07/2022 by Champ Osborne MD PhD at [facility] [employer] 01/19/2024 [id number] / / [id number] Kyle Vascular Device Clsr Perclose Prostyle Sut-Mediatd Closure-Repair Sys 56214-67 - [id number] Implanted:Qty: 1 on 06/07/2022 by Champ Osborne MD PhD at [facility] Kyle Vascular 11/19/2023 43324-07 / [id number] Bard Access Systems Power-Trialysis 13fr 30cm 3 Lumen Kink Resistance Symmetric Tip [id number] - [id number] Implanted:Qty: 1 on 06/07/2022 by Champ Osborne MD PhD at [facility] Right: Jugular Ramirez Chapito 07/20/2024 [id number] / / [id number] [employer] Impella Cp Percutaneous Left Ventricular Assist Device 1571-9105 - [id number] Implanted:Qty: 1 on 06/07/2022 by Champ Osborne MD PhD at [facility] Left: Ventricle [employer] [id number] / / Bard Access Systems Power-Trialysis 13fr 20cm 3 Lumen Short Term Dialysis Straight [id number] - [id number] Implanted:Qty: 1 on 06/18/2022 at [facility] [employer] [place] 07/20/2024 [id number] / / [id number] Rl [employer] Screw Bone Slf Drl Full Thread Locking 3.5x14mm Ti 100.035.14 - [id number] Implanted:Qty: 6 on 10/17/2023 by Lorne Mcnulty MD at [facility] N/A: Sternum [employer] Inc 100.035.1 4 / / Rl [employer] Inc Plate Bone Low Profile 6 Hole H Shape Sternum Ti 115.102.06 - [id number] Implanted:Qty: 2 on 10/17/2023 by Lorne Mcnulty MD at [facility] N/A: Sternum [employer] 115.102.0 6 / / [employer]l [employer] Plate Bone Low Profile 6 Hole O Shape Sternum Ti 115.104.06 - [id number] Implanted:Qty: 1 on 10/17/2023 by Lorne Mcnulty MD at [facility] N/A: Sternum [employer] 115.104.0 6 / / On-X Intrnl Valve Coronary Aortic Mechanical On X 25mm Onxane-25 - [id number] - [id number] Implanted:Qty: 1 on 10/17/2023 by Lorne Mcnulty MD at [facility] N/A: Heart On-X Intrnl 01/22/2028 ONXANE-25 / [id number] / Rl [employer] Screw Bone Slf Drl Full Thread Locking 3.5x18mm Ti 100.035.18 - [id number] Implanted:Qty: 12 on 10/17/2023 by Lorne Mcnulty MD at [facility] N/A: Sternum [employer] Inc 100.035.1 8 / / Explanted Type Area Fraud Manager Device Identifier Shelf Expiration Date Model / Serial / Lot Bard Peripheral Vascular Bard .25x.25in [place] Thk1.65mm Square [place]get Cardiovascular Ptfe [id number] - [id number] Explanted:Qty: 1 on 10/17/2023 by Lorne Mcnulty MD at [facility] N/A: Heart Bard Peripheral Vascular 05/18/2026 [id number] / / Procedures Procedure Name Priority Date/Time Associated Diagnosis Comments HEPATITIS C ANTIBODY Routine 07/29/2024 11:01 AM EXPORT CLERK End stage renal disease (HCC) EGFR Routine 07/29/2024 11:01 AM EXPORT CLERK End stage renal disease (HCC) HEMOGLOBIN A1C Routine 07/29/2024 11:01 AM EXPORT CLERK End stage renal disease (HCC) LIPID PANEL Routine 07/29/2024 11:01 AM EXPORT CLERK End stage renal disease (HCC) PSA SCREEN Routine 07/29/2024 11:01 AM EXPORT CLERK End stage renal disease (HCC) TSH Routine 10/27/2023 2:30 AM EXPORT CLERK from Last 3 Months or Most Recently Relevant to Health Maintenance Results * (ABNORMAL) eGFR (07/29/2024 11:01 AM EXPORT CLERK) eGFR 7(L) >=60 mL/min/1. 73 m2 Comment: [...] reviewed 2021. Blood 07/29/2024 11:0 1 AM EXPORT CLERK 07/29/2024 11:33 AM EXPORT CLERK us Jossie King MD LAB BLOOD ORDERABL ES Final Result [facility] Department [place] [address] * PSA screen (07/29/2024 11:01 AM EXPORT CLERK) PSA-Total 0.55 <=3.90 ng/mL Comment: Interpretive Data [...] revised 21. Blood 07/29/2024 11:0 1 AM EXPORT CLERK 07/29/2024 11:33 AM EXPORT CLERK Narrative [facility] - 07/29/2024 12:39 PM EXPORT CLERK This lab is being obtained as part of a Kidney transplant evaluation, is time sensitive, and should only be drawn during the evaluation visit at [address] Jossie King MD LAB BLOOD ORDERABL ES Final Result Performing Organization Address [facility] de Phone Number [facility] Department [place] [address] * Hepatitis C antibody Blood (07/29/2024 11:01 AM EXPORT CLERK) Pathologist [facility] Hep C Ab Nonreactive Nonreactive Comment:Antibodies to HCV no t detected. Does NOT exclude the possibility of recent exposure to HCV. Current interpretive data was last revised on 22 Blood 07/29/2024 11:0 1 AM EXPORT CLERK 07/29/2024 11:32 AM EXPORT CLERK Narrative [facility] - 07/29/2024 12:47 PM EXPORT CLERK This lab is being obtained as part of a Kidney transplant evaluation, is time sensitive, and should only be drawn during the evaluation visit at [address] Jossie King MD LAB MICROBIOLOGY - GENERAL ORDERABLES Final Result Performing Organization Address [facility] de Phone Number [facility] Department [place] [address] * (ABNORMAL) Hemoglobin A1c (07/29/2024 11:01 AM EXPORT CLERK) Pathologist [facility] Hgb A1C 9.0(H) 4.0 - 5.6 % [...] fasting glucose. Blood 07/29/2024 11:0 1 AM EXPORT CLERK 07/29/2024 11:34 AM EXPORT CLERK Narrative [facility] - 07/29/2024 11:53 AM EXPORT CLERK This lab is being obtained as part of a Kidney transplant evaluation, is time sensitive, and should only be drawn during the evaluation visit at [facility] [address] Lab. Jossie King MD LAB BLOOD ORDERABL ES Final Result [facility] Department [place] [address] * (ABNORMAL) Lipid panel (07/29/2024 11:01 AM EXPORT CLERK) Cholesterol 114 30 - 199 mg/dL Comment: [...] MEDICAL CENTER Blood 07/29/2024 11:0 1 AM EXPORT CLERK 07/29/2024 11:33 AM EXPORT CLERK Narrative [facility] - 07/29/2024 12:10 PM EXPORT CLERK This lab is being obtained as part of a Kidney transplant evaluation, is time sensitive, and should only be drawn during the evaluation visit at [facility] [address] Lab. Jossie King MD LAB BLOOD ORDERABL ES Final Result [facility] Department [place] [address] * (ABNORMAL) TSH (10/27/2023 2:30 AM EXPORT CLERK) [facility] Thyroid Stimulating Hormone 13.20(H) 0.30 - 4.20 mcIUnit/mL Blood 10/27/2023 2:30 AM EXPORT CLERK 10/27/2023 2:42 AM EXPORT CLERK Lorne Mcnulty MD LAB BLOOD ORDERABLES Final Result [facility] [address] Department [place] [address] from Last 3 Months or Most Recently Relevant to Health Maintenance Insurance IDPA [facility] MEDICARE ADVANTAGE IDPA [facility] MEDICARE ADVANTAGE TRANSPLANT [employer] MEDICARE RISK IDPA TRANSPLANT [employer] MEDICARE RISK IDPA Advance Directives For more information, please contact: [phone] * Full Code (Latest Code Status on File) Date Activated Date Inactivated Comments 10/13/2023 11:32 PM 11/03/2023 11:42 PM * Full Code Date Activated Date Inactivated Comments 06/05/2022 6:17 AM 06/29/2022 6:20 PM * Full Code Date Activated Date Inactivated Comments 06/05/2022 4:43 AM 06/05/2022 4:43 AM * Full Code Date Activated Date Inactivated Comments 06/04/2022 9:55 PM 06/05/2022 4:43 AM Care Teams Assistant Professor Of Marine Biology Relationship Specialty Start Date End Date Aditya Castro MD [address] [place] [place] [address] PCP - General 10/17/19 Alondra Lambert, RN [address] [address] Animal Groomer 03/06/24 Hamlet Ortega Jr., MD [address] [place] [address] Consulting Physician Cardiovascular Disease 05/10/24 Leandro Reyes MD [address] [facility] [address] [place] [address] Consulting Physician Nephrology 07/30/24
--- OUTSIDE RECORDS SUMMARY | 2025-03-14 13:34 | XMS_ITS | Clinical Summary ---
Author Organization [facility] Address [address], [place] [address] Phone Care Team Providers Care Summer School Coordinator Name Role Phone Unavailable Primary Care Provider Unavailabl e Allergies Active Allergy Reactions Criticality Noted Date Comments Ticagrelor 12/26/2018 Medications cloNIDine (CATAPRES) 0.1 MG tablet 1 tab 2 times daily 0 8 Active nitroglycerin (NITROSTAT) 0.4 MG SL tablet PRN as directed 0 8 Active clopidogrel (PLAVIX) 75 MG tablet 1 tab daily 0 8 Active Cholecalciferol (VITAMIN D3) 27277 units capsule 1 tab by mouth once [...] on file Legal Sex Male 9:05 AM [facility] Gender Identity Not on file Sexual Orientation [...]
--- OUTSIDE RECORDS SUMMARY | 2025-03-14 13:34 | XMS_ITS | Encounter Summary ---
Author Organization [facility] Address [address] [facility] [place] [address] Care Team Providers Care Pricing Lead Name Role Phone Aditya Castro Primary Care [...] on file Legal Sex Male 5:33 AM [employer] Gender Identity Not on file Sexual Orientation Not on file documented as of this encounter Plan of Treatment Upcoming Encounters Date Type Department Care Team (Latest Contact Info) Description 03/17/2025 7:20 AM CDT Hospital Encounter [facility] - Perioperative Surgery [address] [place] [address] [place] [address] [facility] [address] [place] [phone] Surgery General 03/17/2025 7:20 AM CDT - 03/17/2025 8:43 AM CDT Surgery [facility] - Perioperative Surgery [address] [place] [address] [place] [address] [facility] [address] [place] [phone] LEFT UPPER ARM ARTERIOVENOUS FISTULA 03/17/2025 7:30 AM CDT Procedure visit [facility] - Surgery [address] [place] [address], [address] [phone] Abelardo Meyers MD [address] [place] [phone] 03/31/2025 10:20 AM CDT Office Visit [facility] Surgery [address] [place] [address], [address] [phone] Abelardo Meyers MD [address] [place] [phone] Scheduled Procedures Name Priority Associated Diagnoses Date/Ti me CREATION ARTERIOVENOUS (AV) FISTULA DIRECT 03/17/2025 7:20 AM C DT documented as of this encounter Visit Diagnoses Not on filedocumented in this encounter Care Teams Pricing Lead Relationship Specialty Start Date End Date Aditya Castro Update Information PCP - General 03/06/19 documented as of this encounter
--- OUTSIDE RECORDS SUMMARY | 2025-03-14 13:34 | XMS_ITS | Clinical Summary ---
Author Organization [facility] Address [address] [place] [address] Care Team Providers Care Ladle Operator Name Role Phone Aditya Castro Primary Care Provider Unavailab le Source Comments [facility],non-owned Affiliates and Associated Physician Practices is amultiple site organization consisting of ambulatory clinics and hospital sitesin [place], [place], [place] and [place]. This disclosure is being madepursuant to the Care Everywhere program and may not contain all information available regarding this patient. Last updated 18.[facility] Allergies Active Allergy Reactions Criticality Noted Date [...] 9 Active vitamin D, ergocalciferol , (DRISDOL) 81250 units capsule Take 1 (one) capsule by [...] were not included. Juvenal Garvin 1970 Referring Chemical Radiation Technician: Leandro Reyes Dialysis Info: Type: PD Time: 160 days (11/05/2019) Blood Type: A Body mass index is 37.8 kg/m . ALERTS Edger Hand: Vashti Lizama NP Past Medical History: Diagnosis Date Anemia Arthritis Arthropathy osteo. back and knees see Dr. Norton CAD (coronary artery disease) Community acquired pneumonia 2017 [facility] hospitalized with double pneumonia Congestive heart failure Coronary artery disease Diabetes mellitus type 1 teens dx when he was 13. Insulin since he was dx. Insulin pump currently with dexacom. Vashti Lizama NP is nursing care partner. DM (diabetes mellitus) TYPE 1 DVT (deep venous thrombosis) 2017 [facility]. ESRD on peritoneal dialysis Gout History of blood transfusion 2017 during admission for CA HLD (hyperlipidemia) HTN (hypertension) Hypercholesteremia 5 years on med Hypertension 30's on medications. Kidney disease Myocardial infarction 2017 [facility]. Stent x1 placed. Neuropathy feet [...] file Gets together: Not on file Attends gnosticist service: Not on file Active member of [...] 07/02/2020: Committee Discussion Details: Pt brought to [facility] to discuss his cardiac workup. Team [...] of this social contact worker that Juvenal Garvin has several positive [...] advised of safety concerns regarding immunosuppressants. Plan: seafood process worker to provide supportive services as needed. Patient appears to be a reasonable candidate for transplant from a psychosocial perspective. -Post transplant arrangement forms are needed prior to being listed. Psychiatric Consult Recommended: No Transplant Sas Developer Analyst: Radha Roper LCSW RD:05/14/2020 BMI= 40.0, Class [...] Travel 02/03/2025 2:20 PM CDT Office Visit [facility] - Surgery [address] [place] [address], [address] [place] [address] Abelardo Meyers MD Encounter regarding vascular access for dialysis for end-stage renal disease (HCC) (Primary Dx) 02/03/2025 2:08 PM CDT - 02/03/2025 11:59 PM CDT Hospital Encounter [facility] [address] [place] [address], [address] [place] [address] Abelardo Meyers MD Discharge Disposition: Home or Self Care 02/03/2025 Travel 01/30/2025 Orders Only [facility] [address] [place] [address], [address] [place] [address] Bambi Camara, METAL CABINET FINISHER-MEDICAL TRANSCRIPTION SUPERVISOR ESRD (end stage renal disease) (HCC) from [...] on file Legal Sex Male 5:33 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 ENGINEER Gender Identity Not on file Sexual Orientation Not on file Last Filed Vital Signs Vital Sign Reading Time Taken Comments Blood Pressure 140/60 07/13/2020 1:30 PM DESKTOP ENGINEER Pulse 65 07/13/2020 1:30 PM DESKTOP ENGINEER Temperature 36.1 C (97 F) 07/13/2020 1:30 PM DESKTOP ENGINEER Respiratory Rate 20 07/13/2020 1:30 PM DESKTOP ENGINEER Oxygen Saturation 95% 07/13/2020 1:30 PM DESKTOP ENGINEER Inhaled Oxygen Concentration - - Weight 113.9 kg (251 lb) 02/03/2025 2:17 PM CDT Height 177.8 cm (5' 10) 02/03/2025 2:17 PM CDT Body Mass Index 36.01 02/03/2025 2:17 PM CDT Plan of Treatment Upcoming Encounters Date Type Department Care Team (Latest Contact Info) Description 03/17/2025 7:20 AM CDT Hospital Encounter Critical access hospital Perioperative Surgery [address] [place] [address] [id number] Abelardo Meyers MD [address] [place] [phone] Surgery General 03/17/2025 7:20 AM CDT - 03/17/2025 8:43 AM CDT Surgery [facility] - Perioperative Surgery [address] [place] [address] Abelardo Meyers MD [address] [place] [phone] LEFT UPPER ARM ARTERIOVENOUS FISTULA 03/17/2025 7:30 AM CDT Procedure visit [address] [address] Abelardo Meyers MD [address] [place] [phone] 03/31/2025 10:20 AM CDT Office Visit [address] [address] Abelardo Meyers MD [address] [place] [phone] Scheduled Procedures Name Priority Associated Diagnoses [...] Procedure Note Abelardo Meyers MD - 02/03/2025 [facility] [place] [address], [address] [place] [address] Vessel Mapping for Hemodialysis Report Pat.Name: JUVENAL GARVIN Pat.ID: [id number] St.Date: 02/03/2025 Refer.MD: SOWMYA DURAN Exam Time: 2:10:00 PM Study Type:Vessel Mapping for Hemodialysis Age: 10 1970,54Y Sex: MALE Sonogrphr: Shiva May RVT Pat. Stat.:Outpatient CPT - 4: 52247 Reason for Study: End Stage Renal Disease Procedures: Vessel Mapping for Hemodialysis Race: [facility] Visit ID: [id number] ++++++++++++++++++++++++++++++++++++ SUMMARY: ++++++++++++++++++++++++++++++++++++ Patent left cephalic vein [...] 04:09 PM Abelardo Meyers MD Bambi Camara METAL CABINET FINISHER-MEDICAL TRANSCRIPTION SUPERVISOR VASCULAR LAB ORDERABLES E dited * HIV-1 HIV-2 ANTIGEN/ANTIBODY (05/14/2020 10:18 AM CDT) [facility] HIV Antigen/Antibod y 1 & 2 Non-reacti ve Non-react bianca 05/14/2020 11:49 AM [facility] Comment:Neither HIV-1 p24 An tigen nor HIV-1/HIV-2 Antibodies are detected. Blood BLOOD SPECIMEN / Unknown Lab Venipuncture / Unknown 05/14/2020 10:18 AM CDT 05/14/2020 10:57 AM CDT Glenny Martin MD LAB - HEMATOLOGY ORDERA BLES Final Result [facility] [address] [place] [address], [facility] [phone] * (ABNORMAL) COMPREHENSIVE METABOLIC PANEL (05/14/2020 10:18 AM CDT) [facility] BUN 65(H) 7 - 26 mg/dL 05/14/2020 11:41 AM [facility] Creatinine 5.6(H) 0.6 - 1.2 mg/dL 05/14/2020 11:41 AM [facility] Sodium 142 136 - 145 mmol/L 05/14/2020 11:41 AM [facility] Potassium 3.7 3.5 - 4.5 mmol/L 05/14/2020 11:41 AM [facility] Chloride 101 98 - 107 mmol/L 05/14/2020 11:41 AM [facility] CO2 28 22 - 29 mmol/L 05/14/2020 11:41 AM [facility] Glucose 162(H) 70 - 115 mg/dL [...] 05/14/2020 10:18 AM CDT 05/14/2020 10:55 AM [facility] us Glenny Martin MD LAB - CHEMISTRY ORDERAB LES Final Result [facility] [address] [place] [address], [facility] [phone] * HEPATITIS C ANTIBODY (05/14/2020 10:18 AM [...] LAB - CHEMISTRY ORDERAB LES Final Result [facility] [address] [place] [address], [facility] [phone] from Last 3 Months or Most Recently Relevant to Health Maintenance Insurance MEDICARE [place]ICAID - [place] AETNA MEDICARE ADV [facility] MANAGED MEDICARE ADV MEDICARE MEDICAID - OUT OF STATE AETNA MEDICARE ADV [place] Advance Directives * Full Code (Latest Code Status on File) Date Activated Date Inactivated Comments 11/22/2018 9:24 AM 11/23/2018 7:55 PM Care Teams Ladle Operator Relationship Specialty Start Date End Date Aditya Castro Update Information PCP - General 03/06/19
--- OUTSIDE RECORDS SUMMARY | 2025-03-14 13:34 | XMS_ITS | Encounter Summary ---
Author Organization [facility] Address [address] [place] [address] Phone Care Team Providers Care Program Support Specialist Name Role Phone Unavailable Primary Care Provider Unavailabl e Reason for Visit * Reason Comments Med Refill Encounter Details Date Type Department Care Team (Late st Contact Info) Description 07/04/2019 Refill [facility] [address] [address] Leandro Reyes MD [address] [address] Social History Tobacco Use Types Packs/Day Years [...]
--- OUTSIDE RECORDS SUMMARY | 2025-03-14 13:34 | XMS_ITS ---
Author Organization [facility] Address [address] [place] [address] Care Team Providers Care Direct Of Real Estate Name Role Phone Aditya Castro MD Primary Care Provider [phone] Alondra Lambert RN Unavailable [phone] Shannon Brock MD, [place] P. Unavailable [phone] Leandro Reyes MD Unavailable [phone] Transplant Episode Kidney Candidate [facility] ([place], [place]) [facility] Evaluation began on 05/10/2024 Marked as Active on 05/10/2024 Reason: Evaluation - Standard Kidney CoordinatorAlondra Lambert RN Fax: N/A Email: N/A Scores Score Value Updated Exceptions/Reas ons CPRA Not available EPTS (Calc) 80 03/14/2025 Care Team Name Role Phone Fax Email Alondra Lambert RN Kidney Coordinator [phone] N/A N/A Melany Kelly Primary Communication Equipment Mechanic N/A N/A N/A Chris Richard Spa Consultant N/A N/A N/A Events Pre-Transplant Referred: 03/06/2024 Evaluation began: 05/10/2024 Dialysis History Dialysis History Start End Type Comments Center 10/16/2019 Peritoneal [facility] Information Center Phone Fax Address [facility] [phone] [address] [facility] [address] [facility] [address]
--- OUTSIDE RECORDS SUMMARY | 2025-03-14 13:35 | XMS_ITS | Encounter Summary ---
Author Organization [facility] Address [address] [facility] [place] [address] Care Team Providers Care Emr Implementation Specialist Name Role Phone Aditya Castro Primary Care Provider Unavailab le Reason for Visit * Reason Onset Date Comments Med Question 06/25/2019 Encounter Details Date Type Department Care Team (Late st Contact Info) Description 06/25/2019 Telephone [facility] [address] [place] [address] Finn Kramer MD [address] [place] [address] Med Question Social History Tobacco Use Types Packs/Day Years Used Date Smoking Tobacco: Never Smokeless Tobacco: Never Alcohol Use Standard Drinks/Week Comments No 0 (1 standard drink = 0.6 oz pur e alcohol) Sex and Gender Information Value Date Recorded Sex Assigned at Not on file Legal Sex Male 5:33 AM 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 I called and spoke with Kashif at [facility] and gave clarification the the mmHg I let them know that they should Be the 20-30mmHg . He understood and will get them ready for pt. Anali Connelly TENDER * Telephone Encounter - Theodore Huerta - 06/25/2019 10:40 AM CST Pt called saying patient pharmacy just needs clarification of a number on the prescription for compression socks. Please Advise. TENDER documented in this encounter Plan of Treatment Upcoming Encounters Date Type Department Care Team (Latest Contact Info) Description 03/17/2025 7:20 AM CDT Hospital Encounter [facility] Perioperative Surgery [address] [place] [address] [phone] Abelardo Meyers MD [address] [place] [phone] Surgery General 03/17/2025 7:20 AM CDT - 03/17/2025 8:43 AM CDT Surgery [facility] Perioperative Surgery [address] [place] [address] [id number] Abelardo Meyers MD [address] [place] [phone] LEFT UPPER ARM ARTERIOVENOUS FISTULA 03/17/2025 7:30 AM CDT Procedure visit [address] [address] Abelardo Meyers MD [address] [place] [phone] 03/31/2025 10:20 AM CDT Office Visit [address] [address] Abelardo Meyers MD [address] [place] [phone] Scheduled Procedures Name Priority Associated Diagnoses Date/Ti me CREATION ARTERIOVENOUS (AV) FISTULA DIRECT 03/17/2025 7:20 AM C DT documented as of this encounter Visit Diagnoses Not on filedocumented in this encounter Care Teams Emr Implementation Specialist Relationship Specialty Start Date End Date Aditya Castro Update Information PCP - General 03/06/19 documented as of this encounter
--- OUTSIDE RECORDS SUMMARY | 2025-03-14 13:35 | XMS_ITS | Referral Summary ---
Author Organization [facility] Address [address] [place] [address] Care Team Providers Care Educational Administrator Name Role Phone Aditya Castro MD Primary Care Provider [phone] Alondra Lambert RN Unavailable [phone] Shannon Brock MD, Hamlet P. Unavailable [phone] Leandro Reyes MD Unavailable [phone] Encounters Date Type Department Care Team Description 02/20/2025 Telephone [facility] Transplant Kidney [address] [facility] [address] [place] [address] [phone] [place] [address] Alondra Lambert RN 02/20/2025 Telephone [facility] Transplant Kidney [address] [facility] [address] [place], [place] [address] [phone] [place] [address] Alondra Lambert RN 02/13/2025 Telephone Cardiovascular and Thoracic Surgery [address] [facility] [address] [place] [address] Lorne Mcnulty MD Med Refill [...] PUMP: Continue Omnipod 5 insulin pump with Teespring G6 CGM at home settings: TIME BASAL [...] 1 tablet (25 mcg total) by mouth patient companion before breakfast 30 tablet 1 11/04/19 24 [...] mg SL tablet 12/28/19 18 Active peg [id number]-gaywjocnmvpq-qf ycerin (ARTIFICAL TEARS) 1-0.2-0.2 % ophthalmic solution 1 drop 4 (four) times a day 07/07/20 22 Active potassium chloride ER 20 mEq CR tablet Active Active Problems Problem Noted Date Diagnosed Date End stage renal disease 07/29/2024 Nonrheumatic aortic valve stenosis 11/22/2023 Status post aortic valve replacement 11/22/2023 Status post coronary artery bypass grafting 10/2023 CAD in [place] artery 10/13/2023 Anemia 06/22/2022 Assessment & Plan (06/29/2022 10:12 AM WATER RESOURCES PROJECT MANAGER): Stable, likely 2/2 anemia from ESRD, [...] 06/22/2022 Assessment & Plan (06/29/2022 10:12 AM WATER RESOURCES PROJECT MANAGER): - Renal consulted, s/p CRRT in the ICU now back on PD. Tolerated well and nephrology following - Trialysis catheter removed - Continue vitamins for renal bone mineral disease. Assessment & Plan (06/28/2022 3:29 PM WATER RESOURCES PROJECT MANAGER): - Renal consulted, s/p CRRT in [...] 06/22/2022 Assessment & Plan (06/29/2022 10:12 AM WATER RESOURCES PROJECT MANAGER): C/b cardiogenic shock requiring impella in the setting of cath and AHRF 2/2 pulmonary edema, now resolved. TTE demonstrating recovered EF 65% with grade I diastolic dysfunction. - metop as above - continue low dose losartan 12.5mg daily, ok per nephro. Tolerating well - volume management per PD Assessment & Plan (06/28/2022 3:29 PM WATER RESOURCES PROJECT MANAGER): C/b cardiogenic shock requiring impella in [...] 06/22/2022 Assessment & Plan (06/29/2022 10:12 AM WATER RESOURCES PROJECT MANAGER): Converted to NSR overnight on 06/24. CHADsVASc of 4 not on anticoagulation prior to admission. - cardiology consulted - recommended ongoing rate control - holding off on a/c with high risk for bleeding while on DAPT - reduced metop to 25mg BID in the setting of hypotension, HR 70s NSR Assessment & Plan (06/28/2022 3:30 PM WATER RESOURCES PROJECT MANAGER): Converted to NSR overnight on 06/24. [...] 08/22/2021 Assessment & Plan (06/29/2022 10:11 AM WATER RESOURCES PROJECT MANAGER): With recurrent chest pain post-cath. He [...] today Assessment & Plan (06/28/2022 3:30 PM WATER RESOURCES PROJECT MANAGER): With recurrent chest pain post-cath. He [...] 06/22/2022 Assessment & Plan (06/29/2022 10:11 AM WATER RESOURCES PROJECT MANAGER): Secondary to NSTEMI, s/p Impella since removed on 06/10. Resolved. Assessment & Plan (06/23/2022 4:55 PM CDT): Secondary to NSTEMI, s/p Impella since removed on 06/10. Resolved. Assessment & Plan (06/22/2022 8:22 PM CDT): -Secondary to NSTEMI, s/p Impella since removed on 06/10. Acute hypoxemic respiratory failure 06/09/2022 Assessment & Plan (06/29/2022 10:12 AM WATER RESOURCES PROJECT MANAGER): Secondary to ACS and flash pulmonary [...] (06/10/2022): Added automatically from request for surgery [id number] Abnormal cardiovascular stress test 12/29/2020 Overview (12/29/2020): Added automatically from request for surgery [id number] Coronary artery disease of n ative artery of [place] heart with stable angina pectoris ([facility]) 05/23/2017 History of [...] 01/18/2013 Assessment & Plan (06/29/2022 10:12 AM WATER RESOURCES PROJECT MANAGER): A1c well controlled on admission. He [...] session Assessment & Plan (06/28/2022 3:28 PM WATER RESOURCES PROJECT MANAGER): A1c well controlled on admission. He [...] week 08/01/2024 How often do you attend roman catholic or adventist serv ices? Never 08/01/2024 Do [...] time in the past 12 m [facility], were you homeless or living in [...] file Legal Sex Male 3:42 AM WATER RESOURCES PROJECT MANAGER Gender Identity Not on file Sexual Orientation Not on file Last Filed Vital Signs Vital Sign Reading Time Taken Comments Blood Pressure 122/75 07/29/2024 1:00 PM WATER RESOURCES PROJECT MANAGER Pulse 116 07/29/2024 1:00 PM WATER RESOURCES PROJECT MANAGER Temperature 36.8 C (98.2 F) 07/29/2024 1:00 PM WATER RESOURCES PROJECT MANAGER Respiratory Rate 16 12/01/2023 11:1 3 AM CDT Oxygen Saturation 96% 12/01/2023 11: 13 AM CDT Inhaled Oxygen Concentration - - Weight 121.2 kg (267 lb 1.6 oz) 07/29/2024 1:00 PM WATER RESOURCES PROJECT MANAGER Height 177.8 cm (5' 10) 07/29/2024 1:00 PM WATER RESOURCES PROJECT MANAGER Body Mass Index 38.32 07/29/2024 1:00 PM WATER RESOURCES PROJECT MANAGER Plan of Treatment Not on file Medical Devices Implanted Type Area Sound Equipment Mechanic Device Identifier Shelf Expiration Date Model / Serial / Lot Kyle Vascular Device Clsr Perclose Prostyle Sut-Mediatd Closure-Repair Sys 05135-00 - [id number] Implanted:Qty: 1 on 06/10/2022 by Champ Osborne MD PhD at [facility] Other - see comments Right: Femoral Kyle Vascular 01/19/202405792-17 [employer] Mary Synergy Xd Monorail 2.5mm 48mm 144cm Delivery System 1 Access [id number] - [id number] Implanted:Qty: 1 on 06/07/2022 by Champ Osborne MD PhD at [facility] Stent [employer] Mary 10/27/2023 [id number] / / [id number] [employer] Mary Synergy Xd Monorail 3mm 24mm 144cm Delivery System 1 Access Port [id number] - [id number] Implanted:Qty: 1 on 06/07/2022 by Champ Osborne MD PhD at [facility] Stent [employer] Mary 07/28/2023 [id number] / / [id number] [employer] Mary Synergy Xd Monorail 2.5mm 12mm 144cm Delivery System 1 Access [id number] - [id number] - [id number] Implanted:Qty: 1 on 06/07/2022 by Champ Osborne MD PhD at [facility] Stent [employer] Mary 05/03/2023 [id number] / [id number] / [id number] Daig Mary [id number] Device Closure Angio-Seal Vip Bondek-Plus Polyglyd L70 Cm Od6 Fr Odsec.035 In Vascular - [id number] Implanted:Qty: 1 on 01/21/2021 by Hamlet Ortega Jr., MD at [facility] Left: Groin [employer] Mary [id number] / / Kyle Vascular Device Clsr Perclose Prostyle Sut-Mediatd Closure-Repair Sys 11173-09 - [id number] Implanted:Qty: 1 on 06/07/2022 by Champ Osborne MD PhD at [facility] Kyle Vascular 01/19/2024 [id number] / / [id number] Kyle Vascular Device Clsr Perclose Prostyle Sut-Mediatd Closure-Repair Sys 06019-45 - [id number] Implanted:Qty: 1 on 06/07/2022 by Champ Osborne MD PhD at [facility] Kyle Vascular 11/19/2023 [id number] / / [id number] Bard Access Systems Power-Trialysis 13fr 30cm 3 Lumen Kink Resistance Symmetric Tip [id number] - [id number] Implanted:Qty: 1 on 06/07/2022 by Champ Osborne MD PhD at [facility] Right: Jugular Ramirez Chapito 07/20/2024 [id number] / / [id number] [employer] Impella Cp Percutaneous Left Ventricular Assist Device 6525-1352 - [id number] Implanted:Qty: 1 on 06/07/2022 by Champ Osborne MD PhD at [facility] Left: Ventricle [employer] [id number] / / Bard Access Systems Power-Trialysis 13fr 20cm 3 Lumen Short Term Dialysis Straight [id number] - [id number] Implanted:Qty: 1 on 06/18/2022 at [facility] Ramirez Chapito 07/20/2024 [id number] / / [id number] Rl Biomet Inc Screw Bone Slf Drl Full Thread Locking 3.5x14mm Ti 100.035.14 - [id number] Implanted:Qty: 6 on 10/17/2023 by Lorne Mcnulty MD at [facility] N/A: Sternum [employer] Inc 100.035.1 4 / / Rl [employer] Inc Plate Bone Low Profile 6 Hole H Shape Sternum Ti 115.102.06 - [id number] Implanted:Qty: 2 on 10/17/2023 by Lorne Mcnulty MD at [facility] N/A: Sternum [employer] 115.102.0 6 / / Rl [employer] Plate Bone Low Profile 6 Hole O Shape Sternum Ti 115.104.06 - [id number] Implanted:Qty: 1 on 10/17/2023 by Lorne Mcnulty MD at [facility] N/A: Sternum [employer] 115.104.0 6 / / On-X Intrnl Valve Coronary Aortic Mechanical On X 25mm Onxane-25 - [id number] - [id number] Implanted:Qty: 1 on 10/17/2023 by Lorne Mcnulty MD at [facility] N/A: Heart On-X Intrnl 01/22/2028 ONXANE-25 / [id number] / Rl [employer] Inc Screw Bone Slf Drl Full Thread Locking 3.5x18mm Ti 100.035.18 - [id number] Implanted:Qty: 12 on 10/17/2023 by Lorne Mcnulty MD at [facility] N/A: Sternum [employer] 100.035.1 8 / / Explanted Type Area Sound Equipment Mechanic Device Identifier Shelf Expiration Date Model / Serial / Lot Bard Peripheral Vascular Bard .25x.25in Elida Thk1.65mm Square Pledget Cardiovascular Ptfe [id number] - [id number] Explanted:Qty: 1 on 10/17/2023 by Lorne Mcnulty MD at [facility] N/A: Heart Bard Peripheral Vascular 05/18/2026 [id number] / / Procedures Procedure Name Priority Date/Time Associated Diagnosis Comments HEPATITIS C ANTIBODY Routine 07/29/2024 11:01 AM WATER RESOURCES PROJECT MANAGER End stage renal disease (HCC) EGFR Routine 07/29/2024 11:01 AM WATER RESOURCES PROJECT MANAGER End stage renal disease (HCC) HEMOGLOBIN A1C Routine 07/29/2024 11:01 AM WATER RESOURCES PROJECT MANAGER End stage renal disease (HCC) LIPID PANEL Routine 07/29/2024 11:01 AM WATER RESOURCES PROJECT MANAGER End stage renal disease (HCC) PSA SCREEN Routine 07/29/2024 11:01 AM WATER RESOURCES PROJECT MANAGER End stage renal disease (HCC) TSH Routine 10/27/2023 2:30 AM WATER RESOURCES PROJECT MANAGER from Last 3 Months or Most Recently Relevant to Health Maintenance Results * (ABNORMAL) eGFR (07/29/2024 11:01 AM WATER RESOURCES PROJECT MANAGER) eGFR 7(L) >=60 mL/min/1. 73 m2 [...] reviewed 2021. Blood 07/29/2024 11:0 1 AM WATER RESOURCES PROJECT MANAGER 07/29/2024 11:33 AM WATER RESOURCES PROJECT MANAGER us Jossie King MD LAB BLOOD ORDERABL ES Final Result [facility] Department [place] [address] * PSA screen (07/29/2024 11:01 AM WATER RESOURCES PROJECT MANAGER) PSA-Total 0.55 <=3.90 ng/mL Comment: Interpretive [...] revised 21. Blood 07/29/2024 11:0 1 AM WATER RESOURCES PROJECT MANAGER 07/29/2024 11:33 AM WATER RESOURCES PROJECT MANAGER Narrative [facility] - 07/29/2024 12:39 PM WATER RESOURCES PROJECT MANAGER This lab is being obtained as part of a Kidney transplant evaluation, is time sensitive, and should only be drawn during the evaluation visit at [address] Lab. Jossie King MD LAB BLOOD ORDERABL ES Final Result Performing Organization Address [facility] de Phone Number [facility] Department [place] [address] * Hepatitis C antibody Blood (07/29/2024 11:01 AM WATER RESOURCES PROJECT MANAGER) [facility] Hep C Ab Nonreactive Nonreactive Comment:Antibodies to HCV no t detected. Does NOT exclude the possibility of recent exposure to HCV. Current interpretive data was last revised on 22 Blood 07/29/2024 11:0 1 AM WATER RESOURCES PROJECT MANAGER 07/29/2024 11:32 AM WATER RESOURCES PROJECT MANAGER Narrative [facility] - 07/29/2024 12:47 PM WATER RESOURCES PROJECT MANAGER This lab is being obtained as part of a Kidney transplant evaluation, is time sensitive, and should only be drawn during the evaluation visit at [address] Jossie King MD LAB MICROBIOLOGY - GENERAL ORDERABLES Final Result Performing Organization Address [facility] de Phone Number [facility] Department [place] [address] * (ABNORMAL) Hemoglobin A1c (07/29/2024 11:01 AM WATER RESOURCES PROJECT MANAGER) [facility] Hgb A1C 9.0(H) 4.0 - 5.6 % [...] fasting glucose. Blood 07/29/2024 11:0 1 AM WATER RESOURCES PROJECT MANAGER 07/29/2024 11:34 AM WATER RESOURCES PROJECT MANAGER Narrative [facility] - 07/29/2024 11:53 AM WATER RESOURCES PROJECT MANAGER This lab is being obtained as part of a Kidney transplant evaluation, is time sensitive, and should only be drawn during the evaluation visit at [facility] Lab. Jossie King MD LAB BLOOD ORDERABL ES Final Result [facility] Department [place] [address] * (ABNORMAL) Lipid panel (07/29/2024 11:01 AM WATER RESOURCES PROJECT MANAGER) Cholesterol 114 30 - 199 mg/dL [...] 2018. LDL, calculated 71 <=129 mg/dL [facility] Comment: Interpretive Data Ages < [...] last revised on 2018. Chol/HDL ratio 4 [facility] Blood 07/29/2024 11:0 1 AM WATER RESOURCES PROJECT MANAGER 07/29/2024 11:33 AM WATER RESOURCES PROJECT MANAGER Narrative [facility] - 07/29/2024 12:10 PM WATER RESOURCES PROJECT MANAGER This lab is being obtained as part of a Kidney transplant evaluation, is time sensitive, and should only be drawn during the evaluation visit at [facility] Lab. us Jossie King MD LAB BLOOD ORDERABL ES Final Result [facility] [place] [address] * (ABNORMAL) TSH (10/27/2023 2:30 AM WATER RESOURCES PROJECT MANAGER) [facility] Signature Thyroid Stimulating Hormone 13.20(H) 0.30 - 4.20 mcIUnit/mL Blood 10/27/2023 2:30 AM WATER RESOURCES PROJECT MANAGER 10/27/2023 2:42 AM WATER RESOURCES PROJECT MANAGER Lorne Mcnulty MD LAB BLOOD ORDERABLES Final Result Performing Organization Address City/[facility]/ZIP Co de Phone Number [facility] [address] [place] [address] from Last 3 Months or Most Recently Relevant to Health Maintenance Insurance [place] [address] [facility] [place] [address] [facility] [place] [address] TRANSPLANT [employer] MEDICARE RISK IDPA TRANSPLANT [employer] MED[employer] RISK IDPA Advance Directives For more information, please contact: [phone] * Full Code (Latest Code Status on File) Date Activated Date Inactivated Comments 10/13/2023 11:32 PM 11/03/2023 11:42 PM * Full Code Date Activated Date Inactivated Comments 06/05/2022 6:17 AM 06/29/2022 6:20 PM * Full Code Date Activated Date Inactivated Comments 06/05/2022 4:43 AM 06/05/2022 4:43 AM * Full Code Date Activated Date Inactivated Comments 06/04/2022 9:55 PM 06/05/2022 4:43 AM Care Teams Educational Administrator Relationship Specialty Start Date End Date Aditya Castro MD [address] [place] [place] [address] PCP - General 10/17/19 Alondra Lambert, RN [address] [address] Aircraft Servicer 03/06/24 Hamlet Ortega Jr., MD [address] [place] [address] Consulting Physician Cardiovascular Disease 05/10/24 Leandro Reyes MD [address] [facility] 1 [place] [address] Consulting Physician Nephrology 07/30/24
--- OUTSIDE RECORDS SUMMARY | 2025-03-14 13:35 | XMS_ITS | Encounter Summary ---
Author Organization [facility] [facility] Address [address] [place] [address] Care Team Providers Care Veneer Lathe Operator Name Role Phone Aditya Castro MD Primary Care Provider [phone] Encounter Details Date Type Department Care Team (Late st Contact Info) Description 04/15/2019 Telephone [facility] Oncology and Hematology - [place] [address] [facility] [address] [place] [address] Fernando Schmid MD [address] [facility] [address] [place] [address] Social History Tobacco Use Types [...] filedocumented in this encounter Care Teams Veneer Lathe Operator Relationship Specialty Start Date End Date Aditya Castro MD PCP - General Student in an Organized Health Care Education/Training Program 09/11/18 documented as of this encounter
--- OUTSIDE RECORDS SUMMARY | 2025-03-14 13:35 | XMS_ITS | Continuity of Care Document ---
Author Organization [facility] Address [address] [place] [address] [place] [address] Phone Care Team Providers Care Automatic Typewriter Inspector Name Role Phone Carlos Garcia Unavailable Unavailable Advance Directives Directive Yes / No Effective Date File Name No Information Encounters Encounter Description Practice Location Reason(s) For Visit Diagnoses Date Provider Providers Copied on Encounter [facility], [address] [place] [address] [address], [place], [place], [id number], [place] tel:[phone] [facility] No Information Radha Gonzalez. [address] [place], [place], [facility] [place], [place]. tel:[phone] Referring Provider: Yannick Remy, [facility] [address], [place], [place], [facility] [place]. tel:[phone] Family History Family Member Type Diagnosis Age At Onset No Information Payers Payer name Insurance type Covered democrat ID Authoriza tion(s) Medicaid [facility] [id number] Social History Type Description Quantity Date Captured [...]
--- OUTSIDE RECORDS SUMMARY | 2025-03-14 13:35 | XMS_ITS | Encounter Summary ---
Author Organization [facility] Address [address] [place] [address] Care Team Providers Care Harbor Engineer Name Role Phone Jhonatan Bellamy MD Primary Care Provider [phone] Pedro Lakhani MD Primary Care Provider Eugenia Hughes MD Primary Care Provider [phone] Aditya Castro MD Primary Care Provider [phone] Alondra Lambert RN Unavailable [phone] Shannon Brock MD, Hamlet P. Unavailable [phone] Leandro Reyes MD Unavailable [phone] Encounter Details Date Type Department Care Team (Late st Contact Info) Description 01/11/2018 Orders Only [facility] [address] [place] [address] Scanning, Provider Social History Tobacco Use Types Packs/Day Years Used Date Smoking Tobacco: Never Smokeless Tobacco: Former Alcohol Use Standard Drinks/Week Comments No 0 (1 standard drink = 0.6 oz pur e alcohol) Sex and Gender Information Value Date Recorded Sex Assigned at Not on file Legal Sex Male 3:42 AM SURGICAL CLINICAL REVIEWER Gender Identity Not on file Sexual Orientation [...] documented as of this encounter Care Teams Harbor Engineer Relationship Specialty Start Date End Date Jhonatan Bellamy MD [address] [place] [address] PCP - General 03/25/15 04/16/18 Pedro Lakhani MD [address] [facility] [place] [address] PCP - General Family Practice 04/17/18 04/18/18 Eugenia Hughes MD [address] [facility] [place] [place] [address] PCP - General Family Practice 04/19/18 10/16/19 Aditya Castro MD [address] [facility] DEPT [place] [address] PCP - General 10/17/19 Alondra Lambert, RN [address] [facility] [address] [place] [address] Medical Library Assistant 03/06/24 Hamlet Ortega Jr., MD [address] [place] [address] Consulting Physician Cardiovascular Disease 05/10/24 Leandro Reyes MD [address] [facility] 1 [place] [address] Consulting Physician Nephrology 07/30/24 documented as of this encounter
[2025-03-14] MEDS: CLINDAMYCIN HCL 150 MG CAP 300 MG PO (14:51)
[2025-03-14 14:55] VITALS: BP 126/80; PULSE 92; RESP 18; TEMP 36.6; O2SAT 98
== END 2025-03-14 14:56 | disposition home or self-care (01) ==
PROVIDERS: Emergency Provider Emergency Medicine; PCP Family Medicine
DX: L03.011 Cellulitis of right finger (principal); E11.22 Type 2 diabetes mellitus with diabetic chronic kidney disease; I13.2 Hypertensive heart and chronic kidney disease with heart failure and with stage 5 chronic kidney disease, or end stage renal disease; N18.6 End stage renal disease; Z99.2 Dependence on renal dialysis; D63.1 Anemia in chronic kidney disease; N25.0 Renal osteodystrophy; N25.81 Secondary hyperparathyroidism of renal origin; I48.0 Paroxysmal atrial fibrillation; I25.10 Atherosclerotic heart disease of native coronary artery without angina pectoris; E11.319 Type 2 diabetes mellitus with unspecified diabetic retinopathy without macular edema; E11.42 Type 2 diabetes mellitus with diabetic polyneuropathy; E78.5 Hyperlipidemia, unspecified; K21.9 Gastro-esophageal reflux disease without esophagitis; M10.9 Gout, unspecified; F41.9 Anxiety disorder, unspecified; Z95.1 Presence of aortocoronary bypass graft; Z95.5 Presence of coronary angioplasty implant and graft; Z86.718 Personal history of other venous thrombosis and embolism; Z96.1 Presence of intraocular lens; Z98.49 Cataract extraction status, unspecified eye; Z79.899 Other long term (current) drug therapy; Z79.4 Long term (current) use of insulin; Z79.82 Long term (current) use of aspirin; Z79.01 Long term (current) use of anticoagulants
CPT/HCPCS: 73130; 99283

== ENCOUNTER 2025-03-19 09:28 | Emergency (ER) | payer MEDICARE, MEDICAID, SELFPAY ==
[2025-03-19] VITALS (28 sets, daily range): BP systolic 102–118; BP diastolic 57–76; PULSE 74–100; RESP 12–26; TEMP 36.7; O2SAT 95
--- NOTE | ~2025-03-19 | XR_ITS ---
CHEST RADIOGRAPH, PA AND LATERAL CLINICAL HISTORY: cp . COMPARISON: 11/29/2024 TECHNIQUE: PA and lateral views of the chest. FINDINGS Sternal wires and mediastinal clips are identified, the wires are midline and intact. Prosthetic valve is identified within the mitral position. The remainder of the cardiomediastinal silhouette is otherwise unremarkable. Moderate left-sided pleural effusion, unchanged from prior The lungs are otherwise clear. IMPRESSION: Moderate left-sided pleural effusion, unchanged from 11/29/2024 Reviewed, dictated and finalized at location A.
--- NOTE | 2025-03-19 09:30 | ECG_ITS ---
Test Date: 2025-03-19 09:36:55 Measurements Intervals [place] Rate: 92 P: 0 WI: 0 QRS: -44 QRSD: 153 T: 131 QT: 400 QTc: 497 Interpretive Statements ATRIAL FIBRILLATION INTRAVENTRICULAR CONDUCTION DELAY Electronically Signed On 03-19-2025 13:09:55 CDT by Luís Arizmendi D.O
--- OUTSIDE RECORDS SUMMARY | 2025-03-19 09:48 | XMS_ITS | Clinical Summary ---
Author Organization [facility] Address [address] [place] [address] Care Team Providers Care French Weaver Name Role Phone Aditya Castro Primary Care Provider Unavailab le Source Comments [facility],non-owned Affiliates and Associated Physician Practices is amultiple site organization consisting of ambulatory clinics and hospital sitesin [place], [place], [place] and [place]. This disclosure is being madepursuant to the Care Everywhere program and may not contain all information available regarding this patient. Last updated 18.[facility] Allergies Active Allergy Reactions Criticality Noted Date [...] 9 Active vitamin D, ergocalciferol , (DRISDOL) 86367 units capsule Take 1 (one) capsule by [...] puffs by mouth 2 times daily Active HYDROcodone-ac etaminophen ([place]) 7.5-325 MG tabletIndicati ons:ESRD (end stage renal disease) (HCC) Take 1 (one) tablet by mouth every 6 hours as needed for Pain 30 tablet 5 Active Active Problems Problem Noted Date Diagnosed Date Pre-transplant evaluation for kidney transplant 03/24/2020 Overview (07/15/2020): Images from the original note were not included. Juvenal Garvin 1970 Referring Senior Commissary Agent: Leandro Reyes Dialysis Info: Type: PD Time: 160 days (11/05/2019) Blood Type: A Body mass index is 37.8 kg/m . ALERTS Automobile Rental Agent: Vashti Lizama NP Past Medical History: Diagnosis [...] currently with dexacom. Vashti Lizama NP is ornamental metal worker helper. DM (diabetes mellitus) TYPE 1 DVT (deep venous thrombosis) 2017 [facility]. ESRD on peritoneal dialysis Gout History of blood transfusion 2017 during admission for [place] HLD (hyperlipidemia) HTN (hypertension) Hypercholesteremia 5 years on med Hypertension 30's on medications. Kidney disease Myocardial infarction 2017 [facility] Stent x1 placed. Neuropathy feet Obstructive [...] It is the impression of this social and political studies professor that Juvenal Garvin has several positive [...] advised of safety concerns regarding immunosuppressants. Plan: pressed or blown glass worker to provide supportive services as needed. Patient appears to be a reasonable candidate for transplant from a psychosocial perspective. -Post transplant arrangement forms are needed prior to being listed. Psychiatric Consult Recommended: No Transplant Urban Sociologist: Radha Roper LCSW RD:05/14/2020 BMI= 40.0, Class [...] Encounters Date Type Department Care Team Description 03/17/2025 7:33 AM CDT Anesthesia Event [facility] - Perioperative Surgery [address] [place] [address] Kaushik Flynn MD 03/17/2025 7:20 AM CDT - 03/17/2025 8:43 AM CDT Surgery [facility] Perioperative Surgery [address] [place] [address] Abelardo Meyers MD LEFT UPPER ARM ARTERIOVENOUS FISTULA 03/17/2025 5:43 AM CDT - 03/17/2025 11:34 AM CDT Hospital Encounter [facility] Perioperative Surgery [address] [place] [address] [id number] Abelardo Meyers MD Surgery General Discharge Disposition: Home or Self Care 03/17/2025 Travel 03/13/2025 Travel 02/03/2025 2:20 PM CDT Office Visit [facility] - Surgery [address] [place] [address], [address] [place] [id number] Abelardo Meyers MD Encounter regarding vascular access for dialysis for end-stage renal disease (HCC) (Primary Dx) 02/03/2025 2:08 PM CDT - 02/03/2025 11:59 PM CDT Hospital Encounter [facility] [address] [place] [address], [address] [place], [place] [phone] Abelardo Meyers MD Discharge Disposition: Home or Self Care 02/03/2025 Travel 01/30/2025 Orders Only [facility] - Surgery [address] [place] [address], [address] [place] [address] Bambi Camara, SKEIN STRAIGHTENER-STATISTICAL MACHINE MECHANIC ESRD (end stage renal disease) (HCC) from [...] oz pur e alcohol) 35 years ago AUDIT-C Answer Date Recorded Q1: How often do you have a drink containing alcohol? Never 03/17/2025 Q2: How many drinks containi ng alcohol do you have on a typical day when you are drinking? Patient does not drink Q3: How often do you have si x or more drinks on one occasion? Never 03/17/2025 Sex and Gender Information Value Date Recorded Sex Assigned at Not on file Legal Sex Male 5:33 AM HOSPICE/HOME HEALTH AIDE Gender Identity Not on file Sexual Orientation Not on file Last Filed Vital Signs Vital Sign Reading Time Taken Comments Blood Pressure 115/63 03/17/2025 10:01 AM CDT Pulse 87 03/17/2025 10:01 AM CDT Temperature 36.1 C (96.9 F) 03/17/2025 8:44 AM CDT Respiratory Rate 18 03/17/2025 8:44 AM CDT Oxygen Saturation 84% 03/17/2025 10:01 AM CDT Inhaled Oxygen Concentration - - Weight 117.5 kg (259 lb) 03/17/2025 6:16 AM CDT Height 177.8 cm (5' 10) 03/17/2025 6:16 AM CDT Body Mass Index 37.16 03/17/2025 6:16 AM CDT Plan of Treatment Upcoming Encounters Date Type Department Care Team (Late st Contact Info) Description 03/31/2025 10:20 AM CDT Office Visit [facility] - Surgery [address] [facility], [place] [phone] [place] [address] [address] Health Maintenance Due Date Last Done Comments [...] 06/04/2022, Additional history exists SCREENING FOR DIABETES 03/17/2028 5, 07/29/2024, 05/14/2020, Additional history exists HEPATITIS C SCREENING [...] Procedure Name Priority Date/Time Associated Diagnosis Comments [place] ANASTOMOSIS,AV,ANY SITE 03/17/2025 7:25 AM CDT PT-INR STAT 03/17/2025 6:44 AM CDT Preop testing BASIC METABOLIC PANEL (CALCIUM TOTAL) STAT 03/17/2025 6:16 AM CDT Preop testing VAS BILAT MAPPING FOR HEMODIALYSIS Routine 02/03/2025 2:36 PM CDT ESRD (end stage renal disease) (HCC) HEPATITIS C ANTIBODY Routine 05/14/2020 10:18 AM CDT Pre-transplant evaluation for kidney transplant HIV-1 HIV-2 ANTIGEN/ANTIBODY Routine 05/14/2020 10:18 AM CDT Pre-transplant evaluation for kidney transplant from Last 3 Months or Most Recently Relevant to Health Maintenance Results * (ABNORMAL) PT-INR (03/17/2025 6:44 AM CDT) PT 28.7(H) 12.1 - 14.8 sec 03/17/2025 7:34 AM CDT [facility] INR 2.7(H) 0.9 - 1.1 03/17/2025 7:34 AM CDT [facility] Blood BLOOD SPECIMEN / Unknown Venipuncture / Unknown 03/17/2025 6:44 AM CDT 03/17/2025 6:51 AM CDT Narrative [facility] - 03/17/2025 7:34 AM CDT Conventional Warfarin Anticoagulant Therapy: INR Reference Range: 2.0-3.0 Intensive Warfarin Anticoagulant Therapy: INR Reference Range: 2.5-3.5 Kristi Aggarwal DO LAB - COAGULATION ORDERABLES Fi nal Result Performing Organization Address City/State/[facility] Co de Phone Number [facility] [address] [place] [address] * (ABNORMAL) BASIC METABOLIC PANEL (CALCIUM TOTAL) (03/17/2025 6:16 AM CDT) Glucose 184(H) 70 - 99 mg/dL 03/17/2025 6:57 AM CDT [facility] Sodium 132(L) 136 - 145 mmol/L 03/17/2025 6:57 AM CDT [facility] Potassium 4.8 3.5 - 5.1 mmol/L 03/17/2025 6:57 AM CDT [facility] Chloride 94(L) 98 - 107 mmol/L 03/17/2025 6:57 AM CDT [facility] CO2 23 22 - 29 mmol/L 03/17/2025 6:57 AM CDT [facility] Calcium 9.2 8.4 - 10.4 mg/dL 03/17/2025 6:57 AM CDT [facility] Anion Gap 15 6 - 16 mmol/L 03/17/2025 6:57 AM CDT [facility] BUN 44(H) 7 - 26 mg/dL 03/17/2025 6:57 AM CDT [facility] Creatinine 9.63(H) 0.72 - 1.25 mg/dL 03/17/2025 6:57 AM CDT [facility] eGFR by CKD-EPI 6(L) >=90 mL/min/1.7 3 m2 03/17/2025 6:57 AM CDT [facility] Comment:Estimated Glomerular Filtration Rate (eGFR) calculated using the CKD-EPI Creatinine Equation (2020), per the National Kidney Foundation and [place] Society of Nephrology recommendations. Blood BLOOD SPECIMEN / Unknown Venipuncture / Unknown 03/17/2025 6:16 AM CDT 03/17/2025 6:37 AM CDT us Elsie Garza MD LAB - CHEMISTRY ORDERABLE S Final Result [facility] [address] [place] [address] * VAS Bilat Mapping for Hemodialysis (02/03/2025 2:36 PM CDT) Anatomical Region Laterality Modality Lower Extremity, Upper Extremity Ultrasound 02/03/2025 2:10 PM CDT Narrative Procedure Note Abelardo Meyers MD - 02/03/2025 [facility] [address] [facility], [address] [place] [address] Vessel Mapping for Hemodialysis Report Pat.Name: JUVENAL GARVIN Pat.ID: [id number] St.Date: 02/03/2025 Refer.MD: SOWMYA DURAN Exam Time: 2:10:00 PM Study Type:Vessel Mapping for Hemodialysis Age: 10 1970,54Y Sex: MALE Sonogrphr: Shiva May RVT Pat. Stat.:Outpatient CPT - 4: 24316 Reason for Study: End Stage Renal Disease Procedures: Vessel Mapping for Hemodialysis Race: [facility] Visit ID: [id number] ++++++++++++++++++++++++++++++++++++ SUMMARY: ++++++++++++++++++++++++++++++++++++ Patent left cephalic vein [...] 04:09 PM Abelardo Meyers MD Bambi Camara SKEIN STRAIGHTENER-STATISTICAL MACHINE MECHANIC VASCULAR LAB ORDERABLES E dited * HIV-1 HIV-2 ANTIGEN/ANTIBODY (05/14/2020 10:18 AM CDT) HIV Antigen/Antibod y 1 & 2 Non-reacti ve Non-react bianca 05/14/2020 11:49 AM CDT [facility] Comment:Neither HIV-1 p24 An tigen nor HIV-1/HIV-2 Antibodies are detected. Blood BLOOD SPECIMEN / Unknown Lab Venipuncture / Unknown 05/14/2020 10:18 AM CDT 05/14/2020 10:57 AM CDT Glenny Martin MD LAB - HEMATOLOGY ORDERA BLES Final Result Performing Organization Address [facility] Co de Phone Number [address] [address], [place] [phone] * HEPATITIS C ANTIBODY (05/14/2020 10:18 AM CDT) Hepatitis C Antibody Non-react bianca Non-reac tive 05/14/2020 11:49 AM CDT [facility] Comment:Hepatitis C Antibody screen indicates no serologic [...] ORDERAB LES Final Result Performing Organization Address [facility] Co de Phone Number [address] [address], [place] [phone] from Last 3 Months or Most Recently Relevant to Health Maintenance Insurance MEDICARE MEDICAID - [place] AETNA MEDICARE ADV [facility] MANAGED MEDICARE ADV MEDICARE MEDICAID - OUT OF STATE AETNA MEDICARE ADV [place] Advance Directives * Full Code (Latest Code Status on File) Date Activated Date Inactivated Comments 11/22/2018 9:24 AM 11/23/2018 7:55 PM Care Teams French Weaver Relationship Specialty Start Date End Date Aditya Castro Update Information PCP - General 03/06/19
--- OUTSIDE RECORDS SUMMARY | 2025-03-19 09:48 | XMS_ITS | Encounter Summary ---
Author Organization [facility] Address [address], [place] [address] Phone Care Team Providers Care Cupola Mechanic Name Role Phone Unavailable Primary Care Provider Unavailabl e Reason for Visit * Reason Comments Med Refill Encounter Details Date Type Department Care Team (Late st Contact Info) Description 02/24/2020 Refill [facility] [address] [address] Leandro Reyes MD [address] [address] Social History Tobacco Use Types Packs/Day Years [...]
--- OUTSIDE RECORDS SUMMARY | 2025-03-19 09:48 | XMS_ITS | Continuity of Care Document ---
Author Organization [facility] Address [address] [place] [address] [place] [address] Phone Care Team Providers Care Bed Spring Maker Name Role Phone Carlos Garcia Unavailable Unavailable Advance Directives Directive Yes / No Effective Date File Name No Information Encounters Encounter Description Practice Location Reason(s) For Visit Diagnoses Date Provider Providers Copied on Encounter [facility], [address], [place], [place], [id number], [place] tel:[phone] [facility] No Information Radha Gonzalez. [address] [place], [place], [facility], [place]. tel:[phone] Referring Provider: Yannick Remy, [facility] [address], [place], [place], [facility]. tel:[phone] Family History Family Member Type Diagnosis Age At Onset No Information Payers Payer name Insurance type Covered constitution party ID Authoriza tion(s) Medicaid [facility] [id number] Social History Type Description Quantity Date Captured [...]
--- OUTSIDE RECORDS SUMMARY | 2025-03-19 09:48 | XMS_ITS | Encounter Summary ---
Author Organization [facility] Address [address], [place] [address] Phone Care Team Providers Care Welt Stitcher Name Role Phone Unavailable Primary Care Provider Unavailabl e Reason for Visit * Reason Comments Med Refill Encounter Details Date Type Department Care Team (Late st Contact Info) Description 02/13/2019 Refill [facility] [address] [address] Leandro Reyes MD [address] [address] Social History Tobacco Use Types Packs/Day Years [...]
--- OUTSIDE RECORDS SUMMARY | 2025-03-19 09:48 | XMS_ITS | Clinical Summary ---
Author Organization [facility] Address [address] [place] [address] Care Team Providers Care Agency Owner Name Role Phone Aditya Castro MD Primary [...] tablet Take 30 mg by mouth daily parts counterman. Active clopidogrel (PLAVIX) 75 mg Tablet Take [...] Take 50,000 Units by mouth. Active Insulin [place], Disposable, (TRUEPLUS PEN NEEDLE) 31 gauge x [...] (06/29/2022): Added automatically from request for surgery [id number] Right upper quadrant pain 09/24/2020 Pre-transplant evaluation for kidney transplant 03/24/2020 Overview (06/29/2022): Images from the original note were not included. Juvenal Daigle 1970 Referring Library Technology Instructor: Leandro Reyes Dialysis Info: Type: PD Time: 160 days (11/05/2019) Blood Type: A Body mass index is 37.8 kg/m . ALERTS Children'S Librarian: Vashti Lizama NP Past Medical History: Diagnosis Date Anemia Arthritis Arthropathy osteo. back and knees see Dr. Norton CAD (coronary artery disease) Community acquired pneumonia 2017 [facility] hospitalized with double pneumonia Congestive heart failure Coronary artery disease Diabetes mellitus type 1 teens dx when he was 13. Insulin since he was dx. Insulin pump currently with dexacom. Vashti Lizama NP is tractor mechanic. DM (diabetes mellitus) TYPE 1 DVT (deep venous thrombosis) 2017 [facility]. ESRD on peritoneal dialysis Gout History of blood transfusion 2017 during admission for [place] HLD (hyperlipidemia) HTN (hypertension) Hypercholesteremia 5 years on med Hypertension 30's on medications. Kidney disease Myocardial infarction 2017 [facility]. Stent x1 placed. Neuropathy feet Obstructive [...] 07/02/2020: Committee Discussion Details: Pt brought to [facility] to discuss his cardiac workup. Team [...] It is the impression of this social secretary that Juvenal Daigle has several positive factors [...] advised of safety concerns regarding immunosuppressants. Plan: flat screen worker to provide supportive services as needed. Patient appears to be a reasonable candidate for transplant from a psychosocial perspective. -Post transplant arrangement forms are needed prior to being listed. Psychiatric Consult Recommended: No Transplant Well Tester: Radha Roper LCSW RD:05/14/2020 BMI= 40.0, Class [...] 177.8 cm (5' 10) 06/29/2022 6:00 PM CUSTOMER OPERATIONS ASSOCIATE Body Mass Index 37.74 06/29/2022 6:00 PM CUSTOMER OPERATIONS ASSOCIATE Plan of Treatment Health Maintenance Due Date [...] Tdap) 10/21/2029 10/22/2019 Insurance AENA O MCR [facility] Address: [facility] [address] [place] [address] Advance Directives For more information, please contact: [phone] * Full Code (Latest Code Status on File) Date Activated Date Inactivated Comments 06/29/2022 2:49 PM 07/08/2022 4:30 PM Care Teams Agency Owner Relationship Specialty Start Date End Date Aditya Castro MD PCP - General Student in an Organized Health Care Education/Training Program 09/11/18
--- OUTSIDE RECORDS SUMMARY | 2025-03-19 09:48 | XMS_ITS | Clinical Summary ---
Author Organization [facility] Address [address], [place] [address] Phone Care Team Providers Care Artificial Limb Maker Name Role Phone Unavailable Primary Care Provider Unavailabl e Allergies Active Allergy Reactions Criticality Noted Date Comments Ticagrelor 12/26/2018 Medications cloNIDine (CATAPRES) 0.1 MG tablet 1 tab 2 times daily 0 8 Active nitroglycerin (NITROSTAT) 0.4 MG SL tablet PRN as directed 0 8 Active clopidogrel (PLAVIX) 75 MG tablet 1 tab daily 0 8 Active Cholecalciferol (VITAMIN D3) 94703 units capsule 1 tab by mouth once [...] on file Legal Sex Male 9:05 AM [facility] Gender Identity Not on [...]
--- OUTSIDE RECORDS SUMMARY | 2025-03-19 09:48 | XMS_ITS | Encounter Summary ---
Author Organization [facility] Address [address], [place] [address] Phone Care Team Providers Care Contact Finger Assembler Name Role Phone Unavailable Primary Care Provider Unavailabl e Reason for Visit * Reason Comments Med Refill Encounter Details Date Type Department Care Team (Late st Contact Info) Description 10/08/2019 Refill [facility] [address] [address] Leandro Reyes MD [address] [address] Social History Tobacco Use Types Packs/Day Years [...]
--- OUTSIDE RECORDS SUMMARY | 2025-03-19 09:48 | XMS_ITS | Encounter Summary ---
Author Organization [facility] Address [address] [place] [address] Phone Care Team Providers Care Senior Product Manager Name Role Phone Unavailable Primary Care Provider Unavailabl e Reason for Visit * Reason Comments Med Refill Encounter Details Date Type Department Care Team (Late st Contact Info) Description 01/25/2019 Refill [facility] [address] [facility] [address] [place] [address] Leandro Reyes MD [address] [facility] [address] [place] [address] Social History Tobacco Use Types [...]
--- OUTSIDE RECORDS SUMMARY | 2025-03-19 09:48 | XMS_ITS ---
Author Organization [facility] Address [address] [place] [address] Care Team Providers Care Distribution Designer Name Role Phone Aditya Castro MD Primary Care Provider [phone] Alondra Lambert RN Unavailable [phone] Shannon Brock MD, [place] P. Unavailable [phone] Leandro Reyes MD Unavailable [phone] Transplant Episode Kidney Candidate [facility] ([place], [place]) [facility] Evaluation began on 05/10/2024 Marked as Active on 05/10/2024 Reason: Evaluation - Standard Kidney CoordinatorAlondra Lambert RN Fax: N/A Email: N/A Scores Score Value Updated Exceptions/Reas ons CPRA Not available EPTS (Calc) 80 03/19/2025 Care Team Name Role Phone Fax Email Alondra Lambert RN Kidney Coordinator [phone] N/A N/A Melany Kelly Primary Civilian Jail Officer N/A N/A N/A Chris Richard Nuclear Reactor Operator N/A N/A N/A Events Pre-Transplant Referred: 03/06/2024 Evaluation began: 05/10/2024 Dialysis History Dialysis History Start End Type Comments Center 10/16/2019 Peritoneal [facility] Information Center Phone Fax Address [facility] [phone] [address] [facility] [address] [facility] [address]
--- OUTSIDE RECORDS SUMMARY | 2025-03-19 09:49 | XMS_ITS | Encounter Summary ---
Author Organization [facility] Address [address], [place] [address] Phone Care Team Providers Care State Tested Nursing Assistant Name Role Phone Unavailable Primary Care Provider Unavailabl e Reason for Visit * Reason Comments Med Refill Encounter Details Date Type Department Care Team (Late st Contact Info) Description 07/04/2019 Refill [facility] [address] [address] Leandro Reyes MD [address] [address] Social History Tobacco Use Types Packs/Day Years [...]
--- OUTSIDE RECORDS SUMMARY | 2025-03-19 09:49 | XMS_ITS | Clinical Summary ---
Author Organization [facility] Address [address] [place] [address] Care Team Providers Care Secretary Name Role Phone Aditya Castro MD Primary Care Provider [phone] Alondra Lambert RN Unavailable [phone] Shannon Brock MD, Hamlet P. Unavailable [phone] Leandro Reyes MD Unavailable [phone] Allergies Active Allergy Reactions Criticality Noted Date [...] PUMP: Continue Omnipod 5 insulin pump with TeaMobicom G6 CGM at home settings: TIME BASAL [...] 1 tablet (25 mcg total) by mouth trimmer and reinforcer before breakfast 30 tablet 1 11/04/19 24 [...] mg SL tablet 12/28/19 18 Active peg 940-viypfafeyhlx-hm ycerin (ARTIFICAL TEARS) 1-0.2-0.2 % ophthalmic solution 1 drop 4 (four) times a day 07/07/20 22 Active potassium chloride ER 20 mEq CR tablet Active Active Problems Problem Noted Date Diagnosed Date End stage renal disease 07/29/2024 Nonrheumatic aortic valve stenosis 11/22/2023 Status post aortic valve replacement 11/22/2023 Status post coronary artery bypass grafting 10/2023 CAD in [place] artery 10/13/2023 Anemia 06/22/2022 Assessment & Plan (06/29/2022 10:12 AM EDITORIAL DIRECTOR): Stable, likely 2/2 anemia from ESRD, no [...] 06/22/2022 Assessment & Plan (06/29/2022 10:12 AM EDITORIAL DIRECTOR): - Renal consulted, s/p CRRT in the ICU now back on PD. Tolerated well and nephrology following - Trialysis catheter removed - Continue vitamins for renal bone mineral disease. Assessment & Plan (06/28/2022 3:29 PM EDITORIAL DIRECTOR): - Renal consulted, s/p CRRT in the [...] 06/22/2022 Assessment & Plan (06/29/2022 10:12 AM EDITORIAL DIRECTOR): C/b cardiogenic shock requiring impella in the setting of cath and AHRF 2/2 pulmonary edema, now resolved. TTE demonstrating recovered EF 65% with grade I diastolic dysfunction. - metop as above - continue low dose losartan 12.5mg daily, ok per nephro. Tolerating well - volume management per PD Assessment & Plan (06/28/2022 3:29 PM EDITORIAL DIRECTOR): C/b cardiogenic shock requiring impella in the [...] 06/22/2022 Assessment & Plan (06/29/2022 10:12 AM EDITORIAL DIRECTOR): Converted to NSR overnight on 06/24. CHADsVASc of 4 not on anticoagulation prior to admission. - cardiology consulted - recommended ongoing rate control - holding off on a/c with high risk for bleeding while on DAPT - reduced metop to 25mg BID in the setting of hypotension, HR 70s NSR Assessment & Plan (06/28/2022 3:30 PM EDITORIAL DIRECTOR): Converted to NSR overnight on 06/24. CHADsVASc [...] 08/22/2021 Assessment & Plan (06/29/2022 10:11 AM EDITORIAL DIRECTOR): With recurrent chest pain post-cath. He has [...] today Assessment & Plan (06/28/2022 3:30 PM EDITORIAL DIRECTOR): With recurrent chest pain post-cath. He has [...] 06/22/2022 Assessment & Plan (06/29/2022 10:11 AM EDITORIAL DIRECTOR): Secondary to NSTEMI, s/p Impella since removed on 06/10. Resolved. Assessment & Plan (06/23/2022 4:55 PM CDT): Secondary to NSTEMI, s/p Impella since removed on 06/10. Resolved. Assessment & Plan (06/22/2022 8:22 PM CDT): -Secondary to NSTEMI, s/p Impella since removed on 06/10. Acute hypoxemic respiratory failure 06/09/2022 Assessment & Plan (06/29/2022 10:12 AM EDITORIAL DIRECTOR): Secondary to ACS and flash pulmonary edema, [...] (06/10/2022): Added automatically from request for surgery [id number] Abnormal cardiovascular stress test 12/29/2020 Overview (12/29/2020): Added automatically from request for surgery [id number] Coronary artery disease of n ative artery of [place] heart with stable angina pectoris ([facility]) [...] 01/18/2013 Assessment & Plan (06/29/2022 10:12 AM EDITORIAL DIRECTOR): A1c well controlled on admission. He uses [...] session Assessment & Plan (06/28/2022 3:28 PM EDITORIAL DIRECTOR): A1c well controlled on admission. He uses [...] Type Department Care Team Description 02/20/2025 Telephone [facility] Transplant Kidney [address] [facility] [address] [id number] [place] [address] Alondra Lambert, LUAN 02/20/2025 Telephone [facility] Transplant Kidney [address] [facility] [address] [id number] [place] [address] Alondra Lambert, LUAN 02/13/2025 Telephone Cardiovascular and Thoracic Surgery [address] [facility] [address] [place] [address] Lorne Mcnulty MD Med Refill [...] materials from doctor or pharmacy Never 12/01/2023 [facility] Utilities Answer Date Recorded In the past 12 months has e [employer] oil, or water [employer] threatened to shut off services in your home? No 08/01/2024 Social Connection and Isolation Panel [NHANES] A nswer Date Recorded In a typical week, how many times do you talk on the phone with family, friends, or neighbors? Twice a week 08/01/2024 How often do you get together with friends or re latives? Once a week 08/01/2024 How often do you attend baptism or roman catholic serv ices? Never 08/01/2024 Do you belong [...] any time in the past 12 m [facility], were you homeless or living in a correction (including now)? No 08/01/2024 Personal Safety Answer Date Recorded Have you ever been in or are you currently in a harmful physical or emotional relationship or is someone making you feel afraid or unsafe? 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 Male 3:42 AM EDITORIAL DIRECTOR Gender Identity Not on file Sexual Orientation Not on file Obstetrics History Last Filed Vital Signs Vital Sign Reading Time Taken Comments Blood Pressure 122/75 07/29/2024 1:00 PM EDITORIAL DIRECTOR Pulse 116 07/29/2024 1:00 PM EDITORIAL DIRECTOR Temperature 36.8 C (98.2 F) 07/29/2024 1:00 PM EDITORIAL DIRECTOR Respiratory Rate 16 12/01/2023 11:1 3 AM CDT Oxygen Saturation 96% 12/01/2023 11: 13 AM CDT Inhaled Oxygen Concentration - - Weight 121.2 kg (267 lb 1.6 oz) 07/29/2024 1:00 PM EDITORIAL DIRECTOR Height 177.8 cm (5' 10) 07/29/2024 1:00 PM EDITORIAL DIRECTOR Body Mass Index 38.32 07/29/2024 1:00 PM EDITORIAL DIRECTOR Plan of Treatment Health Maintenance Due Date [...] 03/23/2017, 03/26/2015 Medical Devices Implanted Type Area Orchid Transplanter Device Identifier Shelf Expiration Date Model / Serial / Lot Kyle Vascular Device Clsr Perclose Prostyle Sut-Mediatd Closure-Repair Sys 25351-12 - [id number] Implanted:Qty: 1 on 06/10/2022 by Champ Osborne MD PhD at [facility] Other - see comments Right: Femoral [employer] 01/19/2024 [id number] / / [id number] [employer] Mary Synergy Xd Monorail 2.5mm 48mm 144cm Delivery System 1 Access [id number] - [id number] Implanted:Qty: 1 on 06/07/2022 by Champ Osborne MD PhD at [facility] Stent [employer] Mary 10/27/2023 [id number] / / [id number] Wilder [employer] Mary Synergy Xd Monorail 3mm 24mm 144cm Delivery System 1 Access Port [id number] - [id number] Implanted:Qty: 1 on 06/07/2022 by Champ Osborne MD PhD at [facility] Stent [employer] Mary 07/28/2023 [id number] / / [id number] [employer] Mary Synergy Xd Monorail 2.5mm 12mm 144cm Delivery System 1 Access [id number] - [id number] Implanted:Qty: 1 on 06/07/2022 by Champ Osborne MD PhD at [facility] Stent [employer] Mary 05/03/2023 [id number] / [id number] / [id number] [employer] [place] Mary [id number] Device Closure Angio-Seal Vip [place]-Plus Polyglyd L70 Cm Od6 Fr Odsec.035 In Vascular - [id number] Implanted:Qty: 1 on 01/21/2021 by Hamlet Ortega Jr., MD at [facility] Left: Groin [employer] Mary [id number] / / Kyle Vascular Device Clsr Perclose Prostyle Sut-Mediatd Closure-Repair Sys 35868-67 - [id number] Implanted:Qty: 1 on 06/07/2022 by Champ Osborne MD PhD at [facility] Kyle Vascular 01/19/2024 [id number] / / [id number] Kyle [employer] Device Clsr Perclose Prostyle Sut-Mediatd Closure-Repair Sys 32634-47 - [id number] Implanted:Qty: 1 on 06/07/2022 by Champ Osborne MD PhD at [facility] Kyle Vascular 11/19/2023 [id number] / [id number] Bard Access Systems Power-Trialysis 13fr 30cm 3 Lumen Kink Resistance Symmetric Tip [id number] - [id number] Implanted:Qty: 1 on 06/07/2022 by Champ Osborne MD PhD at [facility] Right: Jugular Ramirez [place] 07/20/2024 [id number] / / [id number] [employer] Impella Cp Percutaneous Left Ventricular Assist Device 6230-2634 - [id number] Implanted:Qty: 1 on 06/07/2022 by Champ Osborne MD PhD at [facility] Left: Ventricle [employer] [id number] / / Bard Access Systems Power-Trialysis 13fr 20cm 3 Lumen Short Term Dialysis Straight [id number] - [id number] Implanted:Qty: 1 on 06/18/2022 at [facility] Ramirez [place] 07/20/2024 [id number] / / [id number] Rl [employer] Inc Screw Bone Slf Drl Full Thread Locking 3.5x14mm Ti 100.035.14 - [id number] Implanted:Qty: 6 on 10/17/2023 by Lorne Mcnulty MD at [facility] N/A: Sternum [employer] Inc 100.035.1 4 / / Rl [employer] Inc Plate Bone Low Profile 6 Hole H Shape Sternum Ti 115.102.06 - [id number] Implanted:Qty: 2 on 10/17/2023 by Lorne Mcnulty MD at [facility] N/A: Sternum [employer] 115.102.0 6 / / Rl [employer] Plate Bone Low Profile 6 Hole O Shape Sternum Ti 115.104.06 - [id number] Implanted:Qty: 1 on 10/17/2023 by Lorne Mcnulty MD at [facility] N/A: Sternum [employer] 115.104.0 6 / / On-X Intrnl Valve Coronary Aortic Mechanical On X 25mm Onxane-25 - [id number] - [id number] Implanted:Qty: 1 on 10/17/2023 by Lorne Mcnulty MD at [facility] N/A: Heart On-X Intrnl 01/22/2028 ONXANE-25 / [id number] / Rl [employer] Screw Bone Slf Drl Full Thread Locking 3.5x18mm Ti 100.035.18 - [id number] Implanted:Qty: 12 on 10/17/2023 by Lorne Mcnulty MD at [facility] N/A: Sternum [employer] 100.035.1 8 / / Explanted Type Area Orchid Transplanter Device Identifier Shelf Expiration Date Model / Serial / Lot Bard Peripheral Vascular Bard .25x.25in [place] Thk1.65mm Square [place] Cardiovascular Ptfe [id number] - [id number] Explanted:Qty: 1 on 10/17/2023 by Lorne Mcnulty MD at [facility] N/A: Heart Bard Peripheral Vascular 05/18/2026 [id number] / / Procedures Procedure Name Priority Date/Time Associated Diagnosis Comments HEPATITIS C ANTIBODY Routine 07/29/2024 11:01 AM EDITORIAL DIRECTOR End stage renal disease (HCC) EGFR Routine 07/29/2024 11:01 AM EDITORIAL DIRECTOR End stage renal disease (HCC) HEMOGLOBIN A1C Routine 07/29/2024 11:01 AM EDITORIAL DIRECTOR End stage renal disease (HCC) LIPID PANEL Routine 07/29/2024 11:01 AM EDITORIAL DIRECTOR End stage renal disease (HCC) PSA SCREEN Routine 07/29/2024 11:01 AM EDITORIAL DIRECTOR End stage renal disease (HCC) TSH Routine 10/27/2023 2:30 AM EDITORIAL DIRECTOR from Last 3 Months or Most Recently Relevant to Health Maintenance Results * (ABNORMAL) eGFR (07/29/2024 11:01 AM EDITORIAL DIRECTOR) eGFR 7(L) >=60 mL/min/1. 73 m2 Comment: [...] reviewed 2021. Blood 07/29/2024 11:0 1 AM EDITORIAL DIRECTOR 07/29/2024 11:33 AM EDITORIAL DIRECTOR us Jossie King MD LAB BLOOD ORDERABL ES Final Result [facility] Department [place] [address] * PSA screen (07/29/2024 11:01 AM EDITORIAL DIRECTOR) PSA-Total 0.55 <=3.90 ng/mL Comment: Interpretive Data [...] revised 21. Blood 07/29/2024 11:0 1 AM EDITORIAL DIRECTOR 07/29/2024 11:33 AM EDITORIAL DIRECTOR Narrative [facility] - 07/29/2024 12:39 PM EDITORIAL DIRECTOR This lab is being obtained as part of a Kidney transplant evaluation, is time sensitive, and should only be drawn during the evaluation visit at [address] Lab[address] Jossie King MD LAB BLOOD ORDERABL ES Final Result Performing Organization Address [facility] de Phone Number [facility] Department [place] [address] * Hepatitis C antibody Blood (07/29/2024 11:01 AM EDITORIAL DIRECTOR) Pathologist [facility] [place] Hep C Ab Nonreactive Nonreactive Comment:Antibodies to HCV no t detected. Does NOT exclude the possibility of recent exposure to HCV. Current interpretive data was last revised on 22 Blood 07/29/2024 11:0 1 AM EDITORIAL DIRECTOR 07/29/2024 11:32 AM EDITORIAL DIRECTOR Narrative [facility] - 07/29/2024 12:47 PM EDITORIAL DIRECTOR This lab is being obtained as part of a Kidney transplant evaluation, is time sensitive, and should only be drawn during the evaluation visit at [address] Jossie King MD LAB MICROBIOLOGY - GENERAL ORDERABLES Final Result Performing Organization Address [facility] de Phone Number [facility] Department [email or web address] [address] * (ABNORMAL) Hemoglobin A1c (07/29/2024 11:01 AM EDITORIAL DIRECTOR) Pathologist [facility] [place] Hgb A1C 9.0(H) 4.0 - 5.6 % Estimated Average Glucose 212 mg/dL [facility] Comment: The ADA recommends reporting an estimated Average Glucose (eAG) with all Hemoglobin A1c results using the equation derived from a study of 507 normal and diabetic adults. Minority populations were underrepresented and children were not included. (Diabetes Care 2020; 43(S1): S66-S76). The eAG is not equivalent to a fasting glucose. Blood 07/29/2024 11:0 1 AM EDITORIAL DIRECTOR 07/29/2024 11:34 AM EDITORIAL DIRECTOR Narrative [facility] - 07/29/2024 11:53 AM EDITORIAL DIRECTOR This lab is being obtained as part of a Kidney transplant evaluation, is time sensitive, and should only be drawn during the evaluation visit at [facility] Lab. Jossie King MD LAB BLOOD ORDERABL ES Final Result [facility] Department [place] [address] * (ABNORMAL) Lipid panel (07/29/2024 11:01 AM EDITORIAL DIRECTOR) Cholesterol 114 30 - 199 mg/dL Comment: [...] 2018. Triglycerides 66 <=149 mg/dL [facility] [...] 2018. HDL 29(L) >=40 mg/dL [facility] Comment: [...] LDL, calculated 71 <=129 mg/dL [facility] [...] 2024. Non-HDL Cholesterol 85 mg/dL [facility] Comment: [...] 4 [facility] Blood 07/29/2024 11:0 1 AM EDITORIAL DIRECTOR 07/29/2024 11:33 AM EDITORIAL DIRECTOR Narrative [facility] - 07/29/2024 12:10 PM EDITORIAL DIRECTOR This lab is being obtained as part of a Kidney transplant evaluation, is time sensitive, and should only be drawn during the evaluation visit at [facility] Lab. Jossie King MD LAB BLOOD ORDERABL ES Final Result [facility] Department [place] [address] * (ABNORMAL) TSH (10/27/2023 2:30 AM EDITORIAL DIRECTOR) [facility] Thyroid Stimulating Hormone 13.20(H) 0.30 - 4.20 mcIUnit/mL Blood 10/27/2023 2:30 AM EDITORIAL DIRECTOR 10/27/2023 2:42 AM EDITORIAL DIRECTOR Lorne Mcnulty MD LAB BLOOD ORDERABLES Final Result [facility] [address] Department [place] [address] from Last 3 Months or Most Recently Relevant to Health Maintenance Insurance [facility]PA [facility] MEDICARE ADVANTAGE IDPA [facility] MEDICARE ADVANTAGE TRANSPLANT [employer] MEDICARE RISK IDPA TRANSPLANT [employer] MEDICARE RISK IDPA Advance Directives For more information, please contact: [phone] * Full Code (Latest Code Status on File) Date Activated Date Inactivated Comments 10/13/2023 11:32 PM 11/03/2023 11:42 PM * Full Code Date Activated Date Inactivated Comments 06/05/2022 6:17 AM 06/29/2022 6:20 PM * Full Code Date Activated Date Inactivated Comments 06/05/2022 4:43 AM 06/05/2022 4:43 AM * Full Code Date Activated Date Inactivated Comments 06/04/2022 9:55 PM 06/05/2022 4:43 AM Care Teams Secretary Relationship Specialty Start Date End Date Aditya Castro MD [address] [place] [address] PCP - General 10/17/19 Alondra Lambert, RN [address] [address] Search Planner 03/06/24 Hamlet Ortega Jr., MD [address] [place] [address] Consulting Physician Cardiovascular Disease 05/10/24 Leandro Reyes MD [address] [facility] [address] [place] [address] Consulting Physician Nephrology 07/30/24
--- OUTSIDE RECORDS SUMMARY | 2025-03-19 09:49 | XMS_ITS | Referral Summary ---
Author Organization [facility] Address [address] [place] [address] Care Team Providers Care Tobacco Stripping Machine Operator Name Role Phone Aditya Castro MD Primary Care Provider [phone] Alondra Lambert RN Unavailable [phone] Shannon Brock MD, Hamlet P. Unavailable [phone] Leandro Reyes MD Unavailable [phone] Encounters Date Type Department Care Team Description 02/20/[address] [facility] Transplant Kidney [address] [facility] [address] [place] [address] [phone] [place] [address] Alondra Lambert RN 02/20/[address] 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 supervisor before breakfast 30 tablet 1 11/04/19 24 [...] mg SL tablet 12/28/19 18 Active peg 158-skpcxzlnywmk-sa ycerin (ARTIFICAL TEARS) 1-0.2-0.2 % ophthalmic solution 1 drop 4 (four) times a day 07/07/20 22 Active potassium chloride ER 20 mEq CR tablet Active Active Problems Problem Noted Date Diagnosed Date End stage renal disease 07/29/2024 Nonrheumatic aortic valve stenosis 11/22/2023 Status post aortic valve replacement 11/22/2023 Status post coronary artery bypass grafting 10/2023 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 Tolerated well and nephrology following - Trialysis catheter removed - Continue vitamins for renal bone mineral disease. Assessment & Plan (06/28/2022 3:29 PM EXECUTIVE ASSISTANT TO PRESIDENT): - Renal consulted, s/p CRRT in the [...] 06/22/2022 Assessment & Plan (06/29/2022 10:12 AM EXECUTIVE ASSISTANT TO PRESIDENT): C/b cardiogenic shock requiring impella in the setting of cath and AHRF 2/2 pulmonary edema, now resolved. TTE demonstrating recovered EF 65% with grade I diastolic dysfunction. - metop as above - continue low dose losartan 12.5mg daily, ok per nephro. Tolerating well - volume management per PD Assessment & Plan (06/28/2022 3:29 PM EXECUTIVE ASSISTANT TO PRESIDENT): C/b cardiogenic shock requiring impella in the [...] 06/22/2022 Assessment & Plan (06/29/2022 10:12 AM EXECUTIVE ASSISTANT TO PRESIDENT): Converted to NSR overnight on 06/24. CHADsVASc of 4 not on anticoagulation prior to admission. - cardiology consulted - recommended ongoing rate control - holding off on a/c with high risk for bleeding while on DAPT - reduced metop to 25mg BID in the setting of hypotension, HR 70s NSR Assessment & Plan (06/28/2022 3:30 PM EXECUTIVE ASSISTANT TO PRESIDENT): Converted to NSR overnight on 06/24. CHADsVASc [...] 08/22/2021 Assessment & Plan (06/29/2022 10:11 AM EXECUTIVE ASSISTANT TO PRESIDENT): With recurrent chest pain post-cath. He has [...] today Assessment & Plan (06/28/2022 3:30 PM EXECUTIVE ASSISTANT TO PRESIDENT): With recurrent chest pain post-cath. He has [...] 06/22/2022 Assessment & Plan (06/29/2022 10:11 AM EXECUTIVE ASSISTANT TO PRESIDENT): Secondary to NSTEMI, s/p Impella since removed on 06/10. Resolved. Assessment & Plan (06/23/2022 4:55 PM CDT): Secondary to NSTEMI, s/p Impella since removed on 06/10. Resolved. Assessment & Plan (06/22/2022 8:22 PM CDT): -Secondary to NSTEMI, s/p Impella since removed on 06/10. 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 He uses [...] session Assessment & Plan (06/28/2022 3:28 PM EXECUTIVE ASSISTANT TO PRESIDENT): A1c well controlled on admission. He uses [...] doctor or pharmacy Never 12/01/2023 [facility] Utilities Answer Date Recorded In the past [...] How often do you attend confucianism or hindu serv ices? Never 08/01/2024 Do you belong [...] any time in the past 12 [facility], were you homeless or living [...] on file Legal Sex Male 3:42 AM EXECUTIVE ASSISTANT TO PRESIDENT Gender Identity Not on file Sexual Orientation Not on file Last Filed Vital Signs Vital Sign Reading Time Taken Comments Blood Pressure 122/75 07/29/2024 1:00 PM EXECUTIVE ASSISTANT TO PRESIDENT Pulse 116 07/29/2024 1:00 PM EXECUTIVE ASSISTANT TO PRESIDENT Temperature 36.8 C (98.2 F) 07/29/2024 1:00 PM EXECUTIVE ASSISTANT TO PRESIDENT Respiratory Rate 16 12/01/2023 11:1 3 AM CDT Oxygen Saturation 96% 12/01/2023 11: 13 AM CDT Inhaled Oxygen Concentration - - Weight 121.2 kg (267 lb 1.6 oz) 07/29/2024 1:00 PM EXECUTIVE ASSISTANT TO PRESIDENT Height 177.8 cm (5' 10) 07/29/2024 1:00 PM EXECUTIVE ASSISTANT TO PRESIDENT Body Mass Index 38.32 07/29/2024 1:00 PM EXECUTIVE ASSISTANT TO PRESIDENT Plan of Treatment Not on file Medical Devices Implanted Type Area Border Patrol Agent Device Identifier Shelf Expiration Date Model / Serial / Lot Kyle Vascular Device Clsr Perclose Prostyle Sut-Mediatd Closure-Repair Sys 14841-43 - [id number] Implanted:Qty: 1 on 06/10/2022 by Champ Osborne MD PhD at [facility] Other - see comments Right: Femoral [employer] 01/19/202417825-70 [employer] Mary Synergy Xd Monorail 2.5mm 48mm 144cm Delivery System 1 Access [id number] - [id number] Implanted:Qty: 1 on 06/07/2022 by Champ Osborne MD PhD at [facility] Stent [employer] Mary 10/27/2023 [id number] / / [id number] [employer] Mary Synergy Xd Monorail 3mm 24mm 144cm Delivery System 1 Access Port [id number] - [id number] Implanted:Qty: 1 on 06/07/2022 by Champ Osborne MD PhD at [facility] Stent [employer] Mary 07/28/2023 [id number] / / [id number] [employer] Mary Synergy Xd Monorail 2.5mm 12mm 144cm Delivery System 1 Access [id number] - [id number] Implanted:Qty: 1 on 06/07/2022 by Champ Osborne MD PhD at [facility] Stent [employer] Mary 05/03/2023 [id number] / [id number] / [id number] Daig Mary [id number] Device Closure Angio-Seal Vip Bondek-Plus Polyglyd L70 Cm Od6 Fr Odsec.035 In Vascular - [id number] Implanted:Qty: 1 on 01/21/2021 by Hamlet Ortega Jr., MD at [facility] Left: Groin [employer] Mary [id number] / / Kyle Vascular Device Clsr Perclose Prostyle Sut-Mediatd Closure-Repair Sys 64404-34 - [id number] Implanted:Qty: 1 on 06/07/2022 by Champ Osborne MD PhD at [facility] [employer] 01/19/2024 [id number] / / [id number] Kyle [employer] Device Clsr Perclose Prostyle Sut-Mediatd Closure-Repair Sys 08720-52 - [id number] Implanted:Qty: 1 on 06/07/2022 by Champ Osborne MD PhD at [facility] [employer] 11/19/2023 [id number] / / [id number] Bard Access Systems Power-Trialysis 13fr 30cm 3 Lumen Kink Resistance Symmetric Tip [id number] - [id number] Implanted:Qty: 1 on 06/07/2022 by Champ Osborne MD PhD at [facility] Right: Jugular Ramirez Chapito 07/20/2024 [id number] / / [id number] [employer] Impella Cp Percutaneous Left Ventricular Assist Device 8652-5250 - [id number] Implanted:Qty: 1 on 06/07/2022 by Champ Osborne MD PhD at [facility] Left: Ventricle [employer] [id number] / / Bard Access Systems Power-Trialysis 13fr 20cm 3 Lumen Short Term Dialysis Straight [id number] - [id number] Implanted:Qty: 1 on 06/18/2022 at [facility] Ramirez Chapito 07/20/2024 [id number] / / [id number] Rl [employer] Inc Screw Bone Slf Drl Full Thread Locking 3.5x14mm Ti 100.035.14 - [id number] Implanted:Qty: 6 on 10/17/2023 by Lorne Mcnulty MD at [facility] N/A: Sternum [employer] 100.035.1 4 / / Rl [employer] Plate Bone Low Profile 6 Hole H Shape Sternum Ti 115.102.06 - [id number] Implanted:Qty: 2 on 10/17/2023 by Lorne Mcnulty MD at [facility] N/A: Sternum [employer] 115.102.0 6 / / Rl [employer] Plate Bone Low Profile 6 Hole O Shape Sternum Ti 115.104.06 - [id number] Implanted:Qty: 1 on 10/17/2023 by Lorne Mcnulty MD at [facility] N/A: Sternum [employer] 115.104.0 6 / / On-X Intrnl Valve Coronary Aortic Mechanical On X 25mm Onxane-25 - [id number] - [id number] Implanted:Qty: 1 on 10/17/2023 by Lorne Mcnulty MD at [facility] N/A: Heart On-X Intrnl 01/22/2028 ONXANE-25 / [id number] / Rl [employer] Screw Bone Slf Drl Full Thread Locking 3.5x18mm Ti 100.035.18 - [id number] Implanted:Qty: 12 on 10/17/2023 by Lorne Mcnulty MD at [facility] N/A: Sternum [employer] 100.035.1 8 / / Explanted Type Area Border Patrol Agent Device Identifier Shelf Expiration Date Model / Serial / Lot Bard Peripheral Vascular Bard .25x.25in [place] Thk1.65mm Square [employer]get [employer]ovascular Ptfe [id number] - [id number] Explanted:Qty: 1 on 10/17/2023 by Lorne Mcnulty MD at [facility] N/A: Heart Bard Peripheral Vascular 05/18/2026 [id number] / / Procedures Procedure Name Priority Date/Time Associated Diagnosis Comments HEPATITIS C ANTIBODY Routine 07/29/2024 11:01 AM EXECUTIVE ASSISTANT TO PRESIDENT End stage renal disease (HCC) EGFR Routine 07/29/2024 11:01 AM EXECUTIVE ASSISTANT TO PRESIDENT End stage renal disease (HCC) HEMOGLOBIN A1C Routine 07/29/2024 11:01 AM EXECUTIVE ASSISTANT TO PRESIDENT End stage renal disease (HCC) LIPID PANEL Routine 07/29/2024 11:01 AM EXECUTIVE ASSISTANT TO PRESIDENT End stage renal disease (HCC) PSA SCREEN Routine 07/29/2024 11:01 AM EXECUTIVE ASSISTANT TO PRESIDENT End stage renal disease (HCC) TSH Routine 10/27/2023 2:30 AM EXECUTIVE ASSISTANT TO PRESIDENT from Last 3 Months or Most Recently Relevant to Health Maintenance Results * (ABNORMAL) eGFR (07/29/2024 11:01 AM EXECUTIVE ASSISTANT TO PRESIDENT) eGFR 7(L) >=60 mL/min/1. 73 m2 Comment: [...] reviewed 2021. Blood 07/29/2024 11:0 1 AM EXECUTIVE ASSISTANT TO PRESIDENT 07/29/2024 11:33 AM EXECUTIVE ASSISTANT TO PRESIDENT us Jossie King MD LAB BLOOD ORDERABL ES Final Result [facility] Department [place] [address] * PSA screen (07/29/2024 11:01 AM EXECUTIVE ASSISTANT TO PRESIDENT) PSA-Total 0.55 <=3.90 ng/mL Comment: Interpretive Data [...] revised 21. Blood 07/29/2024 11:0 1 AM EXECUTIVE ASSISTANT TO PRESIDENT 07/29/2024 11:33 AM EXECUTIVE ASSISTANT TO PRESIDENT Narrative [facility] - 07/29/2024 12:39 PM EXECUTIVE ASSISTANT TO PRESIDENT This lab is being obtained as part of a Kidney transplant evaluation, is time sensitive, and should only be drawn during the evaluation visit at [address] Lab[address] Jossie King MD LAB BLOOD ORDERABL ES Final Result Performing Organization Address [facility] de Phone Number [facility] Department [place] [address] * Hepatitis C antibody Blood (07/29/2024 11:01 AM EXECUTIVE ASSISTANT TO PRESIDENT) [facility] Hep C Ab Nonreactive Nonreactive Comment:Antibodies to HCV no t detected. Does NOT exclude the possibility of recent exposure to HCV. Current interpretive data was last revised on 22 Blood 07/29/2024 11:0 1 AM EXECUTIVE ASSISTANT TO PRESIDENT 07/29/2024 11:32 AM EXECUTIVE ASSISTANT TO PRESIDENT Narrative [facility] - 07/29/2024 12:47 PM EXECUTIVE ASSISTANT TO PRESIDENT This lab is being obtained as part of a Kidney transplant evaluation, is time sensitive, and should only be drawn during the evaluation visit at [address] Jossie King MD LAB MICROBIOLOGY - GENERAL ORDERABLES Final Result Performing Organization Address [facility] de Phone Number [facility] Department [place] [address] * (ABNORMAL) Hemoglobin A1c (07/29/2024 11:01 AM EXECUTIVE ASSISTANT TO PRESIDENT) [facility] Hgb A1C 9.0(H) 4.0 - 5.6 % Estimated Average Glucose 212 mg/dL [facility] Comment: The ADA recommends reporting an estimated Average Glucose (eAG) with all Hemoglobin A1c results using the equation derived from a study of 507 normal and diabetic adults. Minority populations were underrepresented and children were not included. (Diabetes Care 2020; 43(S1): S66-S76). The eAG is not equivalent to a fasting glucose. Blood 07/29/2024 11:0 1 AM EXECUTIVE ASSISTANT TO PRESIDENT 07/29/2024 11:34 AM EXECUTIVE ASSISTANT TO PRESIDENT Narrative [facility] - 07/29/2024 11:53 AM EXECUTIVE ASSISTANT TO PRESIDENT This lab is being obtained as part of a Kidney transplant evaluation, is time sensitive, and should only be drawn during the evaluation visit at [facility] Lab. Jossie King MD LAB BLOOD ORDERABL ES Final Result [facility] Department [place] [address] * (ABNORMAL) Lipid panel (07/29/2024 11:01 AM EXECUTIVE ASSISTANT TO PRESIDENT) Cholesterol 114 30 - 199 mg/dL Comment: [...] revised on 2018. Triglycerides 66 <=149 mg/dL [facility] Comment: Interpretive Data Ages < [...] revised on 2018. HDL 29(L) >=40 mg/dL [facility] Comment: Interpretive Data Ages < [...] 2018. LDL, calculated 71 <=129 mg/dL [facility] Comment: Interpretive Data Ages < [...] revised on 2024. Non-HDL Cholesterol 85 mg/dL [facility] Comment: Interpretive Data Ages < [...] revised on 2018. Chol/HDL ratio 4 [facility] Blood 07/29/2024 11:0 1 AM EXECUTIVE ASSISTANT TO PRESIDENT 07/29/2024 11:33 AM EXECUTIVE ASSISTANT TO PRESIDENT Narrative [facility] - 07/29/2024 12:10 PM EXECUTIVE ASSISTANT TO PRESIDENT This lab is being obtained as part of a Kidney transplant evaluation, is time sensitive, and should only be drawn during the evaluation visit at [facility] Lab. us Jossie King MD LAB BLOOD ORDERABL ES Final Result [facility] Department [place] [address] * (ABNORMAL) TSH (10/27/2023 2:30 AM EXECUTIVE ASSISTANT TO PRESIDENT) [facility] Signature Thyroid Stimulating Hormone 13.20(H) 0.30 - 4.20 mcIUnit/mL Blood 10/27/2023 2:30 AM EXECUTIVE ASSISTANT TO PRESIDENT 10/27/2023 2:42 AM EXECUTIVE ASSISTANT TO PRESIDENT Lorne Mcnulty MD LAB BLOOD ORDERABLES Final Result Performing Organization Address City/[facility]/ZIP Co de Phone Number [facility] [address] Department [place] [address] from Last 3 Months or Most Recently Relevant to Health Maintenance Insurance [facility] MEDICARE ADVANTAGE [facility] Address: [address] [address] [place] [address] [employer] [facility] MEDICARE ADVANTAGE TRANSPLANT [employer] MEDICARE RISK [employer]PA TRANSPLANT [employer] MEDICARE RISK IDPA Advance Directives For more information, please contact: [phone] * Full Code (Latest Code Status on File) Date Activated Date Inactivated Comments 10/13/2023 11:32 PM 11/03/2023 11:42 PM * Full Code Date Activated Date Inactivated Comments 06/05/2022 6:17 AM 06/29/2022 6:20 PM * Full Code Date Activated Date Inactivated Comments 06/05/2022 4:43 AM 06/05/2022 4:43 AM * Full Code Date Activated Date Inactivated Comments 06/04/2022 9:55 PM 06/05/2022 4:43 AM Care Teams Tobacco Stripping Machine Operator Relationship Specialty Start Date End Date Aditya Castro MD [address] [facility] [place] [place] [address] PCP - General 10/17/19 Alondra Lambert, RN [address] [address] Furnace Clerk 03/06/24 Hamlet Ortega Jr., MD [address] [place] [address] Consulting Physician Cardiovascular Disease 05/10/24 Leandro Reyes MD [address] [facility] [address] [place] [address] Consulting Physician Nephrology 07/30/24
--- OUTSIDE RECORDS SUMMARY | 2025-03-19 09:49 | XMS_ITS ---
Author Organization [facility] Address [address] [place] [address] Care Team Providers Care Thread Pulling Machine Attendant Name Role Phone Aditya Castro MD Primary Care Provider [phone] Alondra Lambert RN Unavailable [phone] Shannon Brock MD, [place] P. Unavailable Leandro Reyes MD Unavailable [phone] Dialysis Access Sites Type Status Location Placement Date Removal Da te Peritoneal Dialysis Catheter Continuous cycling Active Hemodialysis Cath Double Inactive Right N emiliano (side) - Anterior 06/18/2022 06/25/2022 Hemodialysis Cath Triple Inactive Neck - Anterior 202106/16/2022 Procedures Procedure Name Priority Date/Time Associated Diagnosis Comments HEPATITIS C ANTIBODY Routine 07/29/2024 11:01 AM [facility] End stage renal disease (HCC) EGFR Routine 07/29/2024 11:01 AM [facility] End stage renal disease (HCC) HEMOGLOBIN A1C Routine 07/29/2024 11:01 AM [facility] End stage renal disease (HCC) LIPID PANEL Routine 07/29/2024 11:01 AM [facility] End stage renal disease (HCC) PSA SCREEN Routine 07/29/2024 11:01 AM [facility] End stage renal disease (HCC) TSH Routine 10/27/2023 2:30 AM [facility] from Last 3 Months or Most Recently [...] PUMP: Continue Omnipod 5 insulin pump with [employer] G6 CGM at home settings: TIME BASAL [...] 1 tablet (25 mcg total) by mouth human performance consultant before breakfast 30 tablet 1 11/04/19 [...] mg SL tablet 12/28/19 18 Active peg [id number] (ARTIFICAL TEARS) 1-0.2-0.2 % ophthalmic solution [...] 06/22/2022 Assessment & Plan (06/29/2022 10:12 AM [facility]): Stable, likely 2/2 anemia from ESRD, no [...] 06/22/2022 Assessment & Plan (06/29/2022 10:12 AM [facility]): - Renal consulted, s/p CRRT in the ICU now back on PD. Tolerated well and nephrology following - Trialysis catheter removed - Continue vitamins for renal bone mineral disease. Assessment & Plan (06/28/2022 3:29 PM [facility]): - Renal consulted, s/p CRRT in the [...] 06/22/2022 Assessment & Plan (06/29/2022 10:12 AM [facility]): C/b cardiogenic shock requiring impella in the setting of cath and AHRF 2/2 pulmonary edema, now resolved. TTE demonstrating recovered EF 65% with grade I diastolic dysfunction. - metop as above - continue low dose losartan 12.5mg daily, ok per nephro. Tolerating well - volume management per PD Assessment & Plan (06/28/2022 3:29 PM [facility]): C/b cardiogenic shock requiring impella in the [...] 06/22/2022 Assessment & Plan (06/29/2022 10:12 AM [facility]): Converted to NSR overnight on 06/24. CHADsVASc of 4 not on anticoagulation prior to admission. - cardiology consulted - recommended ongoing rate control - holding off on a/c with high risk for bleeding while on DAPT - reduced metop to 25mg BID in the setting of hypotension, HR 70s NSR Assessment & Plan (06/28/2022 3:30 PM [facility]): Converted to NSR overnight on 06/24. CHADsVASc [...] 08/22/2021 Assessment & Plan (06/29/2022 10:11 AM [facility]): With recurrent chest pain post-cath. He has [...] today Assessment & Plan (06/28/2022 3:30 PM [facility]): With recurrent chest pain post-cath. He has [...] 06/22/2022 Assessment & Plan (06/29/2022 10:11 AM [facility]): Secondary to NSTEMI, s/p Impella since removed on 06/10. Resolved. Assessment & Plan (06/23/2022 4:55 PM CDT): Secondary to NSTEMI, s/p Impella since removed on 06/10. Resolved. Assessment & Plan (06/22/2022 8:22 PM CDT): -Secondary to NSTEMI, s/p Impella since removed on 06/10. Acute hypoxemic respiratory failure 06/09/2022 Assessment & Plan (06/29/2022 10:12 AM [facility]): Secondary to ACS and flash pulmonary edema, [...] (06/10/2022): Added automatically from request for surgery [id number] Abnormal cardiovascular stress test 12/29/2020 Overview (12/29/2020): Added automatically from request for surgery [id number] Coronary artery disease of n ative artery of [place] heart with stable angina pectoris ([facility]) 05/23/2017 History of [...] 01/18/2013 Assessment & Plan (06/29/2022 10:12 AM [facility]): A1c well controlled on admission. He uses [...] session Assessment & Plan (06/28/2022 3:28 PM [facility]): A1c well controlled on admission. He uses [...] doctor or pharmacy Never 12/01/2023 [facility] Utilities Answer Date Recorded In the [...] week 08/01/2024 How often do you attend mandaen or alevism serv ices? Never 08/01/2024 Do you belong [...] time in the past 12 m [facility], were you homeless or living in a half-way (including now)? No 08/01/2024 Personal Safety Answer Date Recorded Have you ever been in or are you currently in a harmful physical or emotional relationship or is someone making you feel afraid or unsafe? 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 Male 3:42 AM [facility] Gender Identity Not on file Sexual Orientation Not on file Last Filed Vital Signs Vital Sign Reading Time Taken Comments Blood Pressure 122/75 07/29/2024 1:00 PM [facility] Pulse 116 07/29/2024 1:00 PM [facility] Temperature 36.8 C (98.2 F) 07/29/2024 1:00 PM [facility] Respiratory Rate 16 12/01/2023 11:1 3 AM CDT Oxygen Saturation 96% 12/01/2023 11: 13 AM CDT Inhaled Oxygen Concentration - - Weight 121.2 kg (267 lb 1.6 oz) 07/29/2024 1:00 PM [facility] Height 177.8 cm (5' 10) 07/29/2024 1:00 PM [facility] Body Mass Index 38.32 07/29/2024 1:00 PM [facility] Results * (ABNORMAL) eGFR (07/29/2024 11:01 AM [facility]) eGFR 7(L) >=60 mL/min/1. 73 m2 Comment: [...] reviewed 2021. Blood 07/29/2024 11:0 1 AM [facility] 07/29/2024 11:33 AM [facility] Jossie King MD LAB BLOOD ORDERABL ES Final Result [facility] [address] [facility] Department [place] [address] * PSA screen (07/29/2024 11:01 AM [facility]) PSA-Total 0.55 <=3.90 ng/mL Comment: Interpretive Data [...] revised 21. Blood 07/29/2024 11:0 1 AM [facility] 07/29/2024 11:33 AM [facility] Narrative [facility] - 07/29/2024 12:39 PM [facility] This lab is being obtained as part of a Kidney transplant evaluation, is time sensitive, and should only be drawn during the evaluation visit at [address] Jossie King MD LAB BLOOD ORDERABL ES Final Result Performing Organization Address [facility] Co de Phone Number [facility] [place] [address] * Hepatitis C antibody Blood (07/29/2024 11:01 AM [facility]) [facility] Hep C Ab Nonreactive Nonreactive Comment:Antibodies to HCV no t detected. Does NOT exclude the possibility of recent exposure to HCV. Current interpretive data was last revised on 22 Blood 07/29/2024 11:0 1 AM [facility] 07/29/2024 11:32 AM [facility] Narrative [facility] - 07/29/2024 12:47 PM [facility] This lab is being obtained as part of a Kidney transplant evaluation, is time sensitive, and should only be drawn during the evaluation visit at [address] Jossie King MD LAB MICROBIOLOGY - GENERAL ORDERABLES Final Result Performing Organization Address City/[facility]/ZIP Co de Phone Number [facility] [place] [address] * (ABNORMAL) Hemoglobin A1c (07/29/2024 11:01 AM [facility]) [facility] Hgb A1C 9.0(H) 4.0 - 5.6 % [...] fasting glucose. Blood 07/29/2024 11:0 1 AM [facility] 07/29/2024 11:34 AM [facility] Narrative [facility] - 07/29/2024 11:53 AM [facility] This lab is being obtained as part of a Kidney transplant evaluation, is time sensitive, and should only be drawn during the evaluation visit at [facility]. us Jossie King MD LAB BLOOD ORDERABL ES Final Result [facility] [address] [facility] [place] [address] * (ABNORMAL) Lipid panel (07/29/2024 11:01 AM [facility]) Cholesterol 114 30 - 199 mg/dL Comment: [...] on 2018. HDL 29(L) >=40 mg/dL [facility] Comment: Interpretive Data Ages < or [...] 2018. LDL, calculated 71 <=129 mg/dL [facility] Comment: Interpretive Data Ages < or [...] on 2024. Non-HDL Cholesterol 85 mg/dL [facility] Comment: Interpretive Data Ages < or [...] last revised on 2018. Chol/HDL ratio 4 [facility] Blood 07/29/2024 11:0 1 AM [facility] 07/29/2024 11:33 AM [facility] Narrative [facility] - 07/29/2024 12:10 PM [facility] This lab is being obtained as part of a Kidney transplant evaluation, is time sensitive, and should only be drawn during the evaluation visit at [facility]. us Jossie King MD LAB BLOOD ORDERABL ES Final Result [facility] [address] [facility] [place] [address] * (ABNORMAL) TSH (10/27/2023 2:30 AM [facility]) Pathologist [facility] Thyroid Stimulating Hormone 13.20(H) 0.30 - 4.20 mcIUnit/mL Blood 10/27/2023 2:30 AM [facility] 10/27/2023 2:42 AM [facility] us Lorne Mcnulty MD LAB BLOOD ORDERABLES Final Result [facility] [address] [place] [address] from Last 3 Months or Most Recently Relevant to Health Maintenance
--- OUTSIDE RECORDS SUMMARY | 2025-03-19 09:50 | XMS_ITS | Encounter Summary ---
Author Organization [facility] Address [address] [place] [address] Care Team Providers Care Exhibit Technician Name Role Phone Aditya Castro Primary Care Provider Unavailab le Reason for Visit * Reason Onset Date Comments Med Question 06/25/2019 Encounter Details Date Type Department Care Team (Late st Contact Info) Description 06/25/2019 Telephone [facility] [address] [place] [address] Finn Kramer MD [address] [place] [address] Med Question Social History Tobacco Use Types Packs/Day Years Used Date Smoking Tobacco: Never Smokeless Tobacco: Never Alcohol Use Standard Drinks/Week Comments No 0 (1 standard drink = 0.6 oz pur e alcohol) Sex and Gender Information Value Date Recorded Sex Assigned at Not on file Legal Sex Male 5:33 AM APPRENTICE EMBALMER Gender Identity Not on file Sexual Orientation Not on file documented as of this encounter Miscellaneous Notes * Telephone Encounter - Anali Connelly - 06/25/2019 1:41 PM CST Called and spoke with pt he is asking that we call [facility] at [phone] and talk to them about the compression stockings. I called and spoke with Kashif at [facility] and gave clarification the the mmHg I let them know that they should Be the 20-30mmHg . He understood and will get them ready for pt. Anali Connelly ENTICE EMBALMER * Telephone Encounter - Theodore Huerta - 06/25/2019 10:40 AM CST Pt called saying patient pharmacy just needs clarification of a number on the prescription for compression socks. Please Advise. ENTICE EMBALMER documented in this encounter Plan of Treatment Upcoming Encounters Date Type Department Care Team (Late st Contact Info) Description 03/31/2025 10:20 AM CDT Office Visit [facility] - Surgery [address] [place] [address], [address] [address] Abelardo Meyers MD [address] [place] [id number] documented as of this encounter Visit Diagnoses Not on filedocumented in this encounter Care Teams Exhibit Technician Relationship Specialty Start Date End Date Aditya Castro Update Information PCP - General 03/06/19 documented as of this encounter
--- OUTSIDE RECORDS SUMMARY | 2025-03-19 09:50 | XMS_ITS | Encounter Summary ---
Author Organization [facility] Healthcare Address [address] [place] [address] Care Team Providers Care Valuation Manager Name Role Phone Jhonatan Bellamy MD Primary Care Provider [phone] Pedro Lakhani MD Primary Care Provider Eugenia Hughes MD Primary Care Provider [phone] Aditya Castro MD Primary Care Provider [phone] Alondra Lambert RN Unavailable [phone] Shannon Brock MD, [place] P. Unavailable [phone] Leandro Reyes MD Unavailable [phone] Encounter Details Date Type Department Care Team (Late st Contact Info) Description 01/11/2018 Orders Only [facility] Health Information Management [address] [place] [address] Scanning, Provider Social History Tobacco Use Types Packs/Day Years Used Date Smoking Tobacco: Never Smokeless Tobacco: Former Alcohol Use Standard Drinks/Week Comments No 0 (1 standard drink = 0.6 oz pur e alcohol) Sex and Gender Information Value Date Recorded Sex Assigned at Not on file Legal Sex Male 3:42 AM PEDIATRIC SPEECH THERAPIST Gender Identity Not on file Sexual [...] documented as of this encounter Care Teams Valuation Manager Relationship Specialty Start Date End Date Jhonatan Bellamy MD [address] [place] [address] PCP - General 03/25/15 04/16/18 Pedro Lakhani MD [address] [facility] [place] [address] PCP - General Family Practice 04/17/18 04/18/18 Eugenia Hughes MD [address] [facility] [place] [address] PCP - General Family Practice 04/19/18 10/16/19 Aditya Castro MD [address] [facility] [place] [address] PCP - General 10/17/19 Alondra Lambert, RN [address] [facility] [address] [place] [address] Laundrette Owner 03/06/24 Hamlet Ortega Jr., MD [address] [place] [address] Consulting Physician Cardiovascular Disease 05/10/24 Leandro Reyes MD [address] [facility] [address] [place] [address] Consulting Physician Nephrology 07/30/24 documented as of this encounter
--- OUTSIDE RECORDS SUMMARY | 2025-03-19 09:50 | XMS_ITS | Encounter Summary ---
Author Organization [facility] Address [address] [place] [address] Care Team Providers Care Media Director Name Role Phone Aditya Castro MD Primary Care Provider [phone] Encounter Details Date Type Department Care Team (Late st Contact Info) Description 04/15/2019 Telephone [facility] Oncology and Hematology - [place] [address] [facility] [address] [place] [address] Fernando Schmid MD [address] [facility] [address] [place] [address] Social History Tobacco Use Types [...] filedocumented in this encounter Care Teams Media Director Relationship Specialty Start Date End Date Aditya Castro MD PCP - General Student in an Organized Health Care Education/Training Program 09/11/18 documented as of this encounter
[2025-03-19] MEDS: ASPIRIN 81 MG CHEWABLE TABLET 324 MG PO (09:52)
[2025-03-19 09:58] LABS: Hematocrit 38.0 % (42.0-52.0); Hemoglobin 12.3 g/dL (14.0-18.0); Immature Granulocyte Percent A 0.5 % (0-0.5); Lymphocytes Absolute Auto 1.22 K/mm3 (0.9-3.2); Mean Corpuscular HGB Conc 32.4 g/dl (32-36); Mean Corpuscular Hemoglobin 29.3 pg (26-34); Mean Corpuscular Volume 90.5 fl (80-100); Nucleated Red Blood Cells Absolute Auto 0.000 K/mm3 (0.0-0.012); Nucleated Red Blood Cells Perc 0.0 % (0.0-0.2); Platelet Count Result 211 k/mm3 (150-375); Red Blood Count 4.20 M/mm3 (4.6-6.20); White Blood Count 6.4 K/mm3 (4.5-10.0)
[2025-03-19 10:11] LABS: INR 2.6; Prothrombin Time 27.5 Seconds (11.1-14.7)
[2025-03-19 10:12] LABS: Partial Thromboplastin Time 51.0 Seconds (22.3-36.8)
[2025-03-19 10:16] LABS: Alanine Aminotransferase 15 U/L (6-50); Albumin Level 3.8 g/dL (3.5-5.1); Alkaline Phosphatase 89 U/L (38-126); Anion Gap 15 mmol/L (4-12); Aspartate Amino Transferase 37 U/L (17-59); Bilirubin,Total 0.5 mg/dL (0.2-1.3); Blood Urea Nitrogen 42 mg/dL (9-20); Calcium 9.3 mg/dL (8.4-10.2); Carbon Dioxide 26 mmol/L (22-30); Chloride 90 mmol/L (98-107); Estimated CRCL calculation 10 ml/min; Estimated Glomerular Filt Rate 5; Glucose 400 mg/dL (65-110); Lipase 65 U/L (23-300); Potassium 4.3 mmol/L (3.4-5.0); Sodium 131 mmol/L (137-145); Total Protein 7.3 g/dL (6.3-8.2)
[2025-03-19 10:30] LABS: Troponin I 0.042 ng/mL (0.000-0.034)
--- OUTSIDE RECORDS SUMMARY | 2025-03-19 10:30 | XMS_ITS | Clinical Summary ---
Author Organization [facility] Address [address] [place] [address] Care Team Providers Care Medical Claims Representative Name Role Phone Aditya Castro MD Primary Care Provider [phone] Alondra Lambert RN Unavailable [phone] Shannon Brock MD, Hamlet P. Unavailable [phone] Leandro Reyes MD Unavailable [phone] Allergies Active Allergy Reactions Criticality Noted Date [...] PUMP: Continue Omnipod 5 insulin pump with [employer] [place] G6 CGM at home settings: TIME BASAL [...] 1 tablet (25 mcg total) by mouth telephone instrument supervisor before breakfast 30 tablet 1 11/04/19 [...] mg SL tablet 12/28/19 18 Active peg 045-gomdyypgxnkm-uy ycerin (ARTIFICAL TEARS) 1-0.2-0.2 % ophthalmic solution 1 drop 4 (four) times a day 07/07/20 22 Active potassium chloride ER 20 mEq CR tablet Active Active Problems Problem Noted Date Diagnosed Date End stage renal disease 07/29/2024 Nonrheumatic aortic valve stenosis 11/22/2023 Status post aortic valve replacement 11/22/2023 Status post coronary artery bypass grafting 10/2023 CAD in [place] artery 10/13/2023 Anemia 06/22/2022 Assessment & Plan (06/29/2022 10:12 AM WATERSHED PROGRAM MANAGER): Stable, likely 2/2 anemia from ESRD, [...] 06/22/2022 Assessment & Plan (06/29/2022 10:12 AM WATERSHED PROGRAM MANAGER): - Renal consulted, s/p CRRT in the ICU now back on PD. Tolerated well and nephrology following - Trialysis catheter removed - Continue vitamins for renal bone mineral disease. Assessment & Plan (06/28/2022 3:29 PM WATERSHED PROGRAM MANAGER): - Renal consulted, s/p CRRT in [...] 06/22/2022 Assessment & Plan (06/29/2022 10:12 AM WATERSHED PROGRAM MANAGER): C/b cardiogenic shock requiring impella in the setting of cath and AHRF 2/2 pulmonary edema, now resolved. TTE demonstrating recovered EF 65% with grade I diastolic dysfunction. - metop as above - continue low dose losartan 12.5mg daily, ok per nephro. Tolerating well - volume management per PD Assessment & Plan (06/28/2022 3:29 PM WATERSHED PROGRAM MANAGER): C/b cardiogenic shock requiring impella in [...] 06/22/2022 Assessment & Plan (06/29/2022 10:12 AM WATERSHED PROGRAM MANAGER): Converted to NSR overnight on 06/24. CHADsVASc of 4 not on anticoagulation prior to admission. - cardiology consulted - recommended ongoing rate control - holding off on a/c with high risk for bleeding while on DAPT - reduced metop to 25mg BID in the setting of hypotension, HR 70s NSR Assessment & Plan (06/28/2022 3:30 PM WATERSHED PROGRAM MANAGER): Converted to NSR overnight on 06/24. [...] 08/22/2021 Assessment & Plan (06/29/2022 10:11 AM WATERSHED PROGRAM MANAGER): With recurrent chest pain post-cath. He [...] today Assessment & Plan (06/28/2022 3:30 PM WATERSHED PROGRAM MANAGER): With recurrent chest pain post-cath. He [...] 06/22/2022 Assessment & Plan (06/29/2022 10:11 AM WATERSHED PROGRAM MANAGER): Secondary to NSTEMI, s/p Impella since removed on 06/10. Resolved. Assessment & Plan (06/23/2022 4:55 PM CDT): Secondary to NSTEMI, s/p Impella since removed on 06/10. Resolved. Assessment & Plan (06/22/2022 8:22 PM CDT): -Secondary to NSTEMI, s/p Impella since removed on 06/10. Acute hypoxemic respiratory failure 06/09/2022 Assessment & Plan (06/29/2022 10:12 AM WATERSHED PROGRAM MANAGER): Secondary to ACS and flash pulmonary [...] (06/10/2022): Added automatically from request for surgery [id number] Abnormal cardiovascular stress test 12/29/2020 Overview (12/29/2020): Added automatically from request for surgery [id number] Coronary artery disease of n ative artery of [place] heart with stable angina pectoris ([facility]) 05/23/2017 History [...] 01/18/2013 Assessment & Plan (06/29/2022 10:12 AM WATERSHED PROGRAM MANAGER): A1c well controlled on admission. He [...] session Assessment & Plan (06/28/2022 3:28 PM WATERSHED PROGRAM MANAGER): A1c well controlled on admission. He [...] Telephone [facility] Transplant Kidney [address] [facility] [phone] [place] [address] Alondra Lambert, LUAN 02/20/2025 Telephone [facility] Transplant Kidney [address] [facility] [phone] [place] [address] Alondra Lambert, LUAN 02/13/2025 Telephone Cardiovascular and Thoracic Surgery [address] [place] [address] Lorne [...] materials from doctor or pharmacy Never 12/01/2023 [facility] Utilities Answer Date Recorded In the past 12 months has e [employer], oil, or water [employer] threatened to shut off services in your home? No 08/01/2024 Social Connection and Isolation Panel [NHANES] A nswer Date Recorded In a typical week, how many times do you talk on the phone with family, friends, or neighbors? Twice a week 08/01/2024 How often do you get together with friends or re latives? Once a week 08/01/2024 How often do you attend episcopal or restoration serv ices? Never 08/01/2024 Do [...] any time in the past 12 m [facility], were you homeless or living [...] on file Legal Sex Male 3:42 AM WATERSHED PROGRAM MANAGER Gender Identity Not on file Sexual Orientation Not on file Obstetrics History Last Filed Vital Signs Vital Sign Reading Time Taken Comments Blood Pressure 122/75 07/29/2024 1:00 PM WATERSHED PROGRAM MANAGER Pulse 116 07/29/2024 1:00 PM WATERSHED PROGRAM MANAGER Temperature 36.8 C (98.2 F) 07/29/2024 1:00 PM WATERSHED PROGRAM MANAGER Respiratory Rate 16 12/01/2023 11:1 3 AM CDT Oxygen Saturation 96% 12/01/2023 11: 13 AM CDT Inhaled Oxygen Concentration - - Weight 121.2 kg (267 lb 1.6 oz) 07/29/2024 1:00 PM WATERSHED PROGRAM MANAGER Height 177.8 cm (5' 10) 07/29/2024 1:00 PM WATERSHED PROGRAM MANAGER Body Mass Index 38.32 07/29/2024 1:00 PM WATERSHED PROGRAM MANAGER Plan of Treatment Health Maintenance Due [...] 03/23/2017, 03/26/2015 Medical Devices Implanted Type Area Pen And Pencil Repairer Device Identifier Shelf Expiration Date Model / Serial / Lot Kyle Vascular Device Clsr Perclose Prostyle Sut-Mediatd Closure-Repair Sys 36782-27 - [id number] Implanted:Qty: 1 on 06/10/2022 by Champ Osborne MD PhD at [facility] Other - see comments Right: Femoral [employer] 01/19/2024 [id number] / / [id number] [employer] Mary Synergy Xd Monorail 2.5mm 48mm 144cm Delivery System 1 Access [id number] - [id number] Implanted:Qty: 1 on 06/07/2022 by Champ Osborne MD PhD at [facility] Stent [employer] Mary 10/27/2023 [id number] / / [id number] [employer] Mary Synergy Xd Monorail 3mm 24mm 144cm Delivery System 1 Access Port [id number] - [id number] Implanted:Qty: 1 on 06/07/2022 by Champ Osborne MD PhD at [facility] Stent [employer] Mary 07/28/2023 [id number] / / [id number] [employer] Mary Synergy Xd Monorail 2.5mm 12mm 144cm Delivery System 1 Access [id number] - [id number] - [id number] Implanted:Qty: 1 on 06/07/2022 by Champ Osborne MD PhD at [facility] Stent [employer] Mary 05/03/2023 [id number] / [id number] / [id number] [facility] Mary [id number] Device Closure Angio-Seal Vip Bondek-Plus Polyglyd L70 Cm Od6 Fr Odsec.035 In Vascular - [id number] Implanted:Qty: 1 on 01/21/2021 by Hamlet Ortega Jr., MD at [facility] Left: Groin [employer] Mary [id number] / / Kyle Vascular Device Clsr Perclose Prostyle Sut-Mediatd Closure-Repair Sys 43274-43 - [id number] Implanted:Qty: 1 on 06/07/2022 by Champ Osborne MD PhD at [facility] [employer] 01/19/2024 [id number] / / [id number] Kyle V[employer] Device Clsr Perclose Prostyle Sut-Mediatd Closure-Repair Sys 82165-26 - [id number] Implanted:Qty: 1 on 06/07/2022 by Champ Osborne MD PhD at [facility] Kyle Vascular 11/19/2023 [id number] / [id number] Bard Access Systems Power-Trialysis 13fr 30cm 3 Lumen Kink Resistance Symmetric Tip [id number] - [id number] Implanted:Qty: 1 on 06/07/2022 by Champ Osborne MD PhD at [facility] Right: Jugular Ramirez Chapito 07/20/2024 [id number] / / [id number] [employer] Impella Cp Percutaneous Left Ventricular Assist Device 2200-1141 - [id number] Implanted:Qty: 1 on 06/07/2022 by Champ Osborne MD PhD at [facility] Left: Ventricle [employer] [id number] / / Bard Access Systems Power-Trialysis 13fr 20cm 3 Lumen Short Term Dialysis Straight [id number] - [id number] Implanted:Qty: 1 on 06/18/2022 at [facility] Ramirez [place] 07/20/2024 [id number] / / [id number] Rl Bi[employer] Inc Screw Bone Slf Drl Full Thread Locking 3.5x14mm Ti 100.035.14 - [id number] Implanted:Qty: 6 on 10/17/2023 by Lorne Mcnulty MD at [facility] N/A: Sternum [employer] Inc 100.035.1 4 / / Rl [employer] Inc Plate Bone Low Profile 6 Hole H Shape Sternum Ti 115.102.06 - [id number] Implanted:Qty: 2 on 10/17/2023 by Lorne Mcnulty MD at [facility] N/A: Sternum [employer] 115.102.0 6 / / Rl [employer] Plate Bone Low Profile 6 Hole O Shape Sternum Ti 115.104.06 - [id number] Implanted:Qty: 1 on 10/17/2023 by Lorne Mcnulty MD at [facility] N/A: Sternum [employer] 115.104.0 6 / / On-X Intrnl Valve Coronary Aortic Mechanical On X 25mm Onxane-25 - [id number] - [id number] Implanted:Qty: 1 on 10/17/2023 by Lorne Mcnulty MD at [facility] N/A: Heart On-X Intrnl 01/22/2028 ONXANE-25 / [id number] / Rl [employer] Inc Screw Bone Slf Drl Full Thread Locking 3.5x18mm Ti 100.035.18 - [id number] Implanted:Qty: 12 on 10/17/2023 by Lorne Mcnulty MD at [facility] N/A: Sternum Rl [employer] Inc 100.035.1 8 / / Explanted Type Area Pen And Pencil Repairer Device Identifier Shelf Expiration Date Model / Serial / Lot Bard Peripheral Vascular Bard .25x.25in [place] Thk1.65mm Square [place] Cardiovascular Ptfe [id number] - [id number] Explanted:Qty: 1 on 10/17/2023 by Lorne Mcnulty MD at [facility] N/A: Heart Bard Peripheral Vascular 05/18/2026 [id number] / / Procedures Procedure Name Priority Date/Time Associated Diagnosis Comments HEPATITIS C ANTIBODY Routine 07/29/2024 11:01 AM WATERSHED PROGRAM MANAGER End stage renal disease (HCC) EGFR Routine 07/29/2024 11:01 AM WATERSHED PROGRAM MANAGER End stage renal disease (HCC) HEMOGLOBIN A1C Routine 07/29/2024 11:01 AM WATERSHED PROGRAM MANAGER End stage renal disease (HCC) LIPID PANEL Routine 07/29/2024 11:01 AM WATERSHED PROGRAM MANAGER End stage renal disease (HCC) PSA SCREEN Routine 07/29/2024 11:01 AM WATERSHED PROGRAM MANAGER End stage renal disease (HCC) TSH Routine 10/27/2023 2:30 AM WATERSHED PROGRAM MANAGER from Last 3 Months or Most Recently Relevant to Health Maintenance Results * (ABNORMAL) eGFR (07/29/2024 11:01 AM WATERSHED PROGRAM MANAGER) eGFR 7(L) >=60 mL/min/1. 73 m2 [...] reviewed 2021. Blood 07/29/2024 11:0 1 AM WATERSHED PROGRAM MANAGER 07/29/2024 11:33 AM WATERSHED PROGRAM MANAGER us Jossie King MD LAB BLOOD ORDERABL ES Final Result [facility] Department [place] [address] * PSA screen (07/29/2024 11:01 AM WATERSHED PROGRAM MANAGER) PSA-Total 0.55 <=3.90 ng/mL Comment: Interpretive [...] revised 21. Blood 07/29/2024 11:0 1 AM WATERSHED PROGRAM MANAGER 07/29/2024 11:33 AM WATERSHED PROGRAM MANAGER Narrative [facility] - 07/29/2024 12:39 PM WATERSHED PROGRAM MANAGER This lab is being obtained as part of a Kidney transplant evaluation, is time sensitive, and should only be drawn during the evaluation visit at [address] Jossie King MD LAB BLOOD ORDERABL ES Final Result Performing Organization Address [facility] de Phone Number [facility] Department [place] [address] * Hepatitis C antibody Blood (07/29/2024 11:01 AM WATERSHED PROGRAM MANAGER) Pathologist [facility] Hep C Ab Nonreactive Nonreactive Comment:Antibodies to HCV no t detected. Does NOT exclude the possibility of recent exposure to HCV. Current interpretive data was last revised on 22 Blood 07/29/2024 11:0 1 AM WATERSHED PROGRAM MANAGER 07/29/2024 11:32 AM WATERSHED PROGRAM MANAGER Narrative [facility] - 07/29/2024 12:47 PM WATERSHED PROGRAM MANAGER This lab is being obtained as part of a Kidney transplant evaluation, is time sensitive, and should only be drawn during the evaluation visit at [address] Jossie King MD LAB MICROBIOLOGY - GENERAL ORDERABLES Final Result Performing Organization Address [facility] de Phone Number [facility] [place] [address] * (ABNORMAL) Hemoglobin A1c (07/29/2024 11:01 AM WATERSHED PROGRAM MANAGER) Pathologist [facility] Hgb A1C 9.0(H) 4.0 - 5.6 % [...] fasting glucose. Blood 07/29/2024 11:0 1 AM WATERSHED PROGRAM MANAGER 07/29/2024 11:34 AM WATERSHED PROGRAM MANAGER Narrative [facility] - 07/29/2024 11:53 AM WATERSHED PROGRAM MANAGER This lab is being obtained as part of a Kidney transplant evaluation, is time sensitive, and should only be drawn during the evaluation visit at [facility] Lab. Jossie King MD LAB BLOOD ORDERABL ES Final Result [facility] Department [place] [address] * (ABNORMAL) Lipid panel (07/29/2024 11:01 AM WATERSHED PROGRAM MANAGER) Cholesterol 114 30 - 199 mg/dL [...] GENERAL HOSPITAL Blood 07/29/2024 11:0 1 AM WATERSHED PROGRAM MANAGER 07/29/2024 11:33 AM WATERSHED PROGRAM MANAGER Narrative [facility] - 07/29/2024 12:10 PM WATERSHED PROGRAM MANAGER This lab is being obtained as part of a Kidney transplant evaluation, is time sensitive, and should only be drawn during the evaluation visit at [facility] Lab. Jossie King MD LAB BLOOD ORDERABL ES Final Result [facility] Department [place] [address] * (ABNORMAL) TSH (10/27/2023 2:30 AM WATERSHED PROGRAM MANAGER) [facility] Thyroid Stimulating Hormone 13.20(H) 0.30 - 4.20 mcIUnit/mL Blood 10/27/2023 2:30 AM WATERSHED PROGRAM MANAGER 10/27/2023 2:42 AM WATERSHED PROGRAM MANAGER Lorne Mcnulty MD LAB BLOOD ORDERABLES Final Result [facility] [address] Department [place] [address] from Last 3 Months or Most Recently Relevant to Health Maintenance Insurance IDPA [facility] MEDICARE ADVANTAGE IDPA [facility] MEDICARE ADVANTAGE TRANSPLANT [employer] MEDICARE RISK IDPA TRANSPLANT [employer] MEDICARE RISK IDPA Advance Directives For more information, please contact: [phone] * Full Code (Latest Code Status on File) Date Activated Date Inactivated Comments 10/13/2023 11:32 PM 11/03/2023 11:42 PM * Full Code Date Activated Date Inactivated Comments 06/05/2022 6:17 AM 06/29/2022 6:20 PM * Full Code Date Activated Date Inactivated Comments 06/05/2022 4:43 AM 06/05/2022 4:43 AM * Full Code Date Activated Date Inactivated Comments 06/04/2022 9:55 PM 06/05/2022 4:43 AM Care Teams Medical Claims Representative Relationship Specialty Start Date End Date Aditya Castro MD [address] [place] [place] [address] PCP - General 10/17/19 Alondra Lambert, RN [address] [address] Asian Studies Program Chair 03/06/24 Hamlet Ortega Jr., MD [address] [place] [address] Consulting Physician Cardiovascular Disease 05/10/24 Leandro Reyes MD [address] [facility] [address] [place] [address] Consulting Physician Nephrology 07/30/24
--- OUTSIDE RECORDS SUMMARY | 2025-03-19 10:30 | XMS_ITS | Encounter Summary ---
Author Organization [facility] Address [address], [place] [address] Phone Care Team Providers Care Core Cutter And Reamer Name Role Phone Unavailable Primary Care Provider Unavailabl e Reason for Visit * Reason Comments Med Refill Encounter Details Date Type Department Care Team (Late st Contact Info) Description 10/08/2019 Refill [facility] [address] [address] Leandro Reyes MD [address] [address] Social History Tobacco Use Types Packs/Day Years [...]
--- OUTSIDE RECORDS SUMMARY | 2025-03-19 10:30 | XMS_ITS | Clinical Summary ---
Author Organization [facility] Address [address], [place] [address] Phone Care Team Providers Care Crop Duster Helper Name Role Phone Unavailable Primary Care Provider Unavailabl e Allergies Active Allergy Reactions Criticality Noted Date Comments Ticagrelor 12/26/2018 Medications cloNIDine (CATAPRES) 0.1 MG tablet 1 tab 2 times daily 0 8 Active nitroglycerin (NITROSTAT) 0.4 MG SL tablet PRN as directed 0 8 Active clopidogrel (PLAVIX) 75 MG tablet 1 tab daily 0 8 Active Cholecalciferol (VITAMIN D3) 80042 units capsule 1 tab by mouth once [...] on file Legal Sex Male 9:05 AM [facility] Gender Identity Not on file Sexual [...]
--- OUTSIDE RECORDS SUMMARY | 2025-03-19 10:30 | XMS_ITS | Encounter Summary ---
Author Organization [facility] Address [address], [place] [address] Phone Care Team Providers Care Overseamer Name Role Phone Unavailable Primary Care Provider Unavailabl e Reason for Visit * Reason Comments Med Refill Encounter Details Date Type Department Care Team (Late st Contact Info) Description 02/24/2020 Refill [facility] [address] [address] Leandro Reyes MD [address] [address] Social History Tobacco Use Types Packs/Day Years [...]
--- OUTSIDE RECORDS SUMMARY | 2025-03-19 10:30 | XMS_ITS | Clinical Summary ---
Author Organization [facility] Address [address] [facility] [place] [address] Care Team Providers Care Drum Plater Name Role Phone Aditya Castro Primary Care Provider Unavailab le Source Comments [facility],non-owned Affiliates and Associated Physician Practices is amultiple site organization consisting of ambulatory clinics and hospital sitesin [place], [place] and [place]. This disclosure is being madepursuant to the Care Everywhere program and may not contain all information available regarding this patient. Last updated 18.[facility] Allergies Active Allergy Reactions Criticality Noted Date [...] 9 Active vitamin D, ergocalciferol , (DRISDOL) 84418 units capsule Take 1 (one) capsule by [...] mouth 2 times daily Active HYDROcodone-ac etaminophen ([place]) 7.5-325 MG tabletIndicati ons:ESRD (end stage renal disease) (HCC) Take 1 (one) tablet by mouth every 6 hours as needed for Pain 30 tablet 5 Active Active Problems Problem Noted Date Diagnosed Date Pre-transplant evaluation for kidney transplant 03/24/2020 Overview (07/15/2020): Images from the original note were not included. Juvenal Garvin 1970 Referring Cheesemaking Laborer: Leandro Reyes Dialysis Info: Type: PD Time: 160 days (11/05/2019) Blood Type: A Body mass index is 37.8 kg/m . ALERTS Assurance Manager Insurance: Vashti Lizama NP Past Medical History: Diagnosis Date Anemia Arthritis Arthropathy osteo. back and knees see Dr. Norton CAD (coronary artery disease) Community acquired pneumonia 2017 [facility] hospitalized with double pneumonia Congestive heart failure Coronary artery disease Diabetes mellitus type 1 teens dx when he was 13. Insulin since he was dx. Insulin pump currently with dexacom. Vashti Lizama NP is cloud systems architect. DM (diabetes mellitus) TYPE 1 DVT (deep venous thrombosis) 2017 [facility]. ESRD on peritoneal dialysis Gout History of blood transfusion 2017 during admission for [place] HLD (hyperlipidemia) HTN (hypertension) Hypercholesteremia 5 years on med Hypertension 30's on medications. Kidney disease Myocardial infarction 2017 [facility] Stent x1 placed. Neuropathy feet Obstructive sleep [...] file Gets together: Not on file Attends faith service: Not on file Active member of [...] Impression: It is the impression of this professor of social work that Juvenal Garvin has several [...] advised of safety concerns regarding immunosuppressants. Plan: disc pad knockout worker to provide supportive services as needed. Patient appears to be a reasonable candidate for transplant from a psychosocial perspective. -Post transplant arrangement forms are needed prior to being listed. Psychiatric Consult Recommended: No Transplant Media Executive: Radha Roper LCSW RD:05/14/2020 BMI= 40.0, Class [...] Description 03/17/2025 7:33 AM CDT Anesthesia Event [facility] - Perioperative Surgery [address] [place] [address] Kaushik Flynn MD 03/17/2025 7:20 AM CDT - 03/17/2025 8:43 AM CDT Surgery [facility] Perioperative Surgery [address] [place] [address] Abelardo Meyers MD LEFT UPPER ARM ARTERIOVENOUS FISTULA 03/17/2025 5:43 AM CDT - 03/17/2025 11:34 AM CDT Hospital Encounter [facility] Perioperative Surgery [address] [place] [address] [id number] Abelardo Meyers MD Surgery General Discharge Disposition: Home or Self Care 03/17/2025 Travel 03/13/2025 Travel 02/03/2025 2:20 PM CDT Office Visit [facility] - Surgery [address] [place] [address], [address] [place] [id number] Abelardo Meyers MD Encounter regarding vascular access for dialysis for end-stage renal disease (HCC) (Primary Dx) 02/03/2025 2:08 PM CDT - 02/03/2025 11:59 PM CDT Hospital Encounter [facility] [address] [place] [address], [address] [place], [place] [id number] Abelardo Meyers MD Discharge Disposition: Home or Self Care 02/03/2025 Travel 01/30/2025 Orders Only [facility] - Surgery [address] [place] [address], [address] [place] [address] Bambi Camara, CERTIFIED PHYSICIAN'S ASSISTANT-BRAND DESIGNER ESRD (end stage renal disease) (HCC) from [...] on file Legal Sex Male 5:33 AM RELAY WORKER Gender Identity Not on file Sexual [...] Description 03/31/2025 10:20 AM CDT Office Visit [facility] - Surgery [address] [facility] [place] [phone] [place] [address] [address] Health Maintenance Due Date Last [...] Procedure Name Priority Date/Time Associated Diagnosis Comments GA ANASTOMOSIS,AV,ANY SITE 03/17/2025 7:25 AM CDT PT-INR [...] - 14.8 sec 03/17/2025 7:34 AM CDT [facility] INR 2.7(H) 0.9 - 1.1 03/17/2025 7:34 AM CDT [facility] Blood BLOOD SPECIMEN / Unknown Venipuncture / Unknown 03/17/2025 6:44 AM CDT 03/17/2025 6:51 AM CDT Narrative [facility] - 03/17/2025 7:34 AM CDT Conventional Warfarin Anticoagulant Therapy: INR Reference Range: 2.0-3.0 Intensive Warfarin Anticoagulant Therapy: INR Reference Range: 2.5-3.5 Kristi Aggarwal DO LAB - COAGULATION ORDERABLES Fi nal Result Performing Organization Address City/State/[facility] Co de Phone Number [facility] [address] [place] [address] * (ABNORMAL) BASIC METABOLIC PANEL (CALCIUM TOTAL) (03/17/2025 6:16 AM CDT) Glucose 184(H) 70 - 99 mg/dL 03/17/2025 6:57 AM CDT [facility] Sodium 132(L) 136 - 145 mmol/L 03/17/2025 6:57 AM CDT [facility] Potassium 4.8 3.5 - 5.1 mmol/L 03/17/2025 6:57 AM CDT [facility] Chloride 94(L) 98 - 107 mmol/L 03/17/2025 6:57 AM CDT [facility] CO2 23 22 - 29 mmol/L 03/17/2025 6:57 AM CDT [facility] Calcium 9.2 8.4 - 10.4 mg/dL 03/17/2025 6:57 AM CDT [facility] Anion Gap 15 6 - 16 mmol/L 03/17/2025 6:57 AM CDT [facility] BUN 44(H) 7 - 26 mg/dL 03/17/2025 6:57 AM CDT [facility] Creatinine 9.63(H) 0.72 - 1.25 mg/dL 03/17/2025 6:57 AM CDT [facility] eGFR by CKD-EPI 6(L) >=90 mL/min/1.7 3 m2 03/17/2025 6:57 AM CDT [facility] Comment:Estimated Glomerular Filtration Rate (eGFR) calculated using the CKD-EPI Creatinine Equation (2020), per the National Kidney Foundation and [place] [employer] Society of Nephrology recommendations. Blood BLOOD SPECIMEN / Unknown Venipuncture / Unknown 03/17/2025 6:16 AM CDT 03/17/2025 6:37 AM CDT us Elsie Garza MD LAB - CHEMISTRY ORDERABLE S Final Result [facility] [address] [place] [address] * VAS Bilat Mapping for Hemodialysis (02/03/2025 2:36 PM CDT) Anatomical Region Laterality Modality Lower Extremity, Upper Extremity Ultrasound 02/03/2025 2:10 PM CDT Narrative Procedure Note Abelardo Meyers MD - 02/03/2025 [facility] [address] [address], [address] [place] [address] Vessel Mapping for Hemodialysis Report Pat.Name: JUVENAL GARVIN Pat.ID: [id number] St.Date: 02/03/2025 Refer.MD: SOWMYA DURAN Exam Time: 2:10:00 PM Study Type:Vessel Mapping for Hemodialysis Age: 10 1970,54Y Sex: MALE Sonogrphr: Shiva May RVT Pat. Stat.:Outpatient CPT - 4: 22118 Reason for Study: End Stage Renal Disease Procedures: Vessel Mapping for Hemodialysis Race: [facility] Visit ID: [id number] ++++++++++++++++++++++++++++++++++++ SUMMARY: ++++++++++++++++++++++++++++++++++++ Patent left cephalic vein [...] 04:09 PM Abelardo Meyers MD Bambi Camara CERTIFIED PHYSICIAN'S ASSISTANT-BRAND DESIGNER VASCULAR LAB ORDERABLES E dited * HIV-1 HIV-2 ANTIGEN/ANTIBODY (05/14/2020 10:18 AM CDT) HIV Antigen/Antibod y 1 & 2 Non-reacti ve Non-react bianca 05/14/2020 11:49 AM CDT [facility] Comment:Neither HIV-1 p24 An tigen nor HIV-1/HIV-2 Antibodies are detected. Blood BLOOD SPECIMEN / Unknown Lab Venipuncture / Unknown 05/14/2020 10:18 AM CDT 05/14/2020 10:57 AM CDT Glenny Martin MD LAB - HEMATOLOGY ORDERA BLES Final Result Performing Organization Address [facility] Co de Phone Number [address] [address], [place] [phone] * HEPATITIS C ANTIBODY (05/14/2020 10:18 AM [...] ORDERAB LES Final Result Performing Organization Address [facility] Co de Phone Number [address] [address], [place] [phone] from Last 3 Months or Most Recently [...] 9:24 AM 11/23/2018 7:55 PM Care Teams Drum Plater Relationship Specialty Start Date End Date Aditya Castro Update Information PCP - General 03/06/19
--- OUTSIDE RECORDS SUMMARY | 2025-03-19 10:30 | XMS_ITS | Continuity of Care Document ---
Author Organization [facility] Address [address] [place] [address] [place] [address] Phone Care Team Providers Care Ux Research Associate Name Role Phone Carlos Garcia Unavailable Unavailable Advance Directives Directive Yes / No Effective Date File Name No Information Encounters Encounter Description Practice Location Reason(s) For Visit Diagnoses Date Provider Providers Copied on Encounter [facility], [address], [place], [place], [id number], [place] tel:[phone] [facility] No Information Radha Gonzalez. [address], [place], [facility] [place] [facility] [place], [place]. tel:[phone] Referring Provider: Yannick Remy, [facility] [address], [place], [place], [facility] [place] [facility] [place]. tel:[phone] Family History Family Member Type Diagnosis Age At Onset No Information Payers Payer name Insurance type Covered green party ID Authoriza tion(s) Medicaid [facility] [id number] Social History Type Description Quantity Date Captured [...]
--- OUTSIDE RECORDS SUMMARY | 2025-03-19 10:30 | XMS_ITS ---
Author Organization [facility] Address [address] [place] [address] Care Team Providers Care Patternmaker Name Role Phone Aditya Castro MD Primary Care Provider Alondra Lambert RN Unavailable [phone] Shannon Brock MD, [place] P. Unavailable Leandro Reyes MD Unavailable [phone] Dialysis Access Sites Type Status Location Placement Date Removal Da te Peritoneal Dialysis Catheter Continuous cycling Active Hemodialysis Cath Double Inactive Right N emiliano (side) - Anterior 06/18/2022 06/25/2022 Hemodialysis Cath Triple Inactive Neck - Anterior 202106/16/2022 Procedures Procedure Name Priority Date/Time Associated Diagnosis Comments HEPATITIS C ANTIBODY Routine 07/29/2024 11:01 AM [facility] End stage renal disease (HCC) EGFR Routine 07/29/2024 11:01 AM CONFIGURATION MANAGER End stage renal disease (HCC) HEMOGLOBIN A1C Routine 07/29/2024 11:01 AM [facility] End stage renal disease (HCC) LIPID PANEL Routine 07/29/2024 11:01 AM [facility] End stage renal disease (HCC) PSA SCREEN Routine 07/29/2024 11:01 AM CONFIGURATION MANAGER End stage renal disease (HCC) TSH Routine 10/27/2023 2:30 AM CONFIGURATION MANAGER from Last 3 Months or Most [...] PUMP: Continue Omnipod 5 insulin pump with [employer] G6 CGM at home settings: TIME BASAL [...] 1 tablet (25 mcg total) by mouth enterprise systems administrator before breakfast 30 tablet 1 11/04/19 24 [...] mg SL tablet 12/28/19 18 Active peg [id number]-vm ycerin (ARTIFICAL TEARS) 1-0.2-0.2 % ophthalmic solution 1 drop 4 (four) times a day 07/07/20 22 Active potassium chloride ER 20 mEq CR tablet Active Active Problems Problem Noted Date Diagnosed Date End stage renal disease 07/29/2024 Nonrheumatic aortic valve stenosis 11/22/2023 Status post aortic valve replacement 11/22/2023 Status post coronary artery bypass grafting 10/2023 CAD in [place] artery 10/13/2023 Anemia 06/22/2022 Assessment & Plan (06/29/2022 10:12 AM CONFIGURATION MANAGER): Stable, likely 2/2 anemia from ESRD, [...] 06/22/2022 Assessment & Plan (06/29/2022 10:12 AM CONFIGURATION MANAGER): - Renal consulted, s/p CRRT in the ICU now back on PD. Tolerated well and nephrology following - Trialysis catheter removed - Continue vitamins for renal bone mineral disease. Assessment & Plan (06/28/2022 3:29 PM CONFIGURATION MANAGER): - Renal consulted, s/p CRRT in [...] 06/22/2022 Assessment & Plan (06/29/2022 10:12 AM CONFIGURATION MANAGER): C/b cardiogenic shock requiring impella in the setting of cath and AHRF 2/2 pulmonary edema, now resolved. TTE demonstrating recovered EF 65% with grade I diastolic dysfunction. - metop as above - continue low dose losartan 12.5mg daily, ok per nephro. Tolerating well - volume management per PD Assessment & Plan (06/28/2022 3:29 PM CONFIGURATION MANAGER): C/b cardiogenic shock requiring impella in [...] 06/22/2022 Assessment & Plan (06/29/2022 10:12 AM CONFIGURATION MANAGER): Converted to NSR overnight on 06/24. CHADsVASc of 4 not on anticoagulation prior to admission. - cardiology consulted - recommended ongoing rate control - holding off on a/c with high risk for bleeding while on DAPT - reduced metop to 25mg BID in the setting of hypotension, HR 70s NSR Assessment & Plan (06/28/2022 3:30 PM CONFIGURATION MANAGER): Converted to NSR overnight on 06/24. [...] 08/22/2021 Assessment & Plan (06/29/2022 10:11 AM CONFIGURATION MANAGER): With recurrent chest pain post-cath. He [...] today Assessment & Plan (06/28/2022 3:30 PM CONFIGURATION MANAGER): With recurrent chest pain post-cath. He [...] 06/22/2022 Assessment & Plan (06/29/2022 10:11 AM CONFIGURATION MANAGER): Secondary to NSTEMI, s/p Impella since removed on 06/10. Resolved. Assessment & Plan (06/23/2022 4:55 PM CDT): Secondary to NSTEMI, s/p Impella since removed on 06/10. Resolved. Assessment & Plan (06/22/2022 8:22 PM CDT): -Secondary to NSTEMI, s/p Impella since removed on 06/10. Acute hypoxemic respiratory failure 06/09/2022 Assessment & Plan (06/29/2022 10:12 AM CONFIGURATION MANAGER): Secondary to ACS and flash pulmonary [...] (06/10/2022): Added automatically from request for surgery [id number] Abnormal cardiovascular stress test 12/29/2020 Overview (12/29/2020): Added automatically from request for surgery [id number] Coronary artery disease of n ative artery of [place] heart with stable angina pectoris ([facility]) 05/23/2017 History of coronary artery [...] 01/18/2013 Assessment & Plan (06/29/2022 10:12 AM CONFIGURATION MANAGER): A1c well controlled on admission. He [...] session Assessment & Plan (06/28/2022 3:28 PM CONFIGURATION MANAGER): A1c well controlled on admission. He [...] from doctor or pharmacy Never 12/01/2023 [facility] Utilities Answer Date Recorded In the [...] week 08/01/2024 How often do you attend worship or confucianism serv ices? Never 08/01/2024 Do you belong [...] time in the past 12 [facility], were you homeless or living in a fdc (including now)? No 08/01/2024 Personal Safety Answer Date Recorded Have you ever been in or are you currently in a harmful physical or emotional relationship or is someone making you feel afraid or unsafe? 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 Male 3:42 AM CONFIGURATION MANAGER Gender Identity Not on file Sexual Orientation Not on file Last Filed Vital Signs Vital Sign Reading Time Taken Comments Blood Pressure 122/75 07/29/2024 1:00 PM CONFIGURATION MANAGER Pulse 116 07/29/2024 1:00 PM CONFIGURATION MANAGER Temperature 36.8 C (98.2 F) 07/29/2024 1:00 PM CONFIGURATION MANAGER Respiratory Rate 16 12/01/2023 11:1 3 AM CDT Oxygen Saturation 96% 12/01/2023 11: 13 AM CDT Inhaled Oxygen Concentration - - Weight 121.2 kg (267 lb 1.6 oz) 07/29/2024 1:00 PM CONFIGURATION MANAGER Height 177.8 cm (5' 10) 07/29/2024 1:00 PM CONFIGURATION MANAGER Body Mass Index 38.32 07/29/2024 1:00 PM CONFIGURATION MANAGER Results * (ABNORMAL) eGFR (07/29/2024 11:01 AM CONFIGURATION MANAGER) eGFR 7(L) >=60 mL/min/1. 73 m2 [...] reviewed 2021. Blood 07/29/2024 11:0 1 AM CONFIGURATION MANAGER 07/29/2024 11:33 AM CONFIGURATION MANAGER Jossie King MD LAB BLOOD ORDERABL ES Final Result [facility] Department [place] [address] * PSA screen (07/29/2024 11:01 AM CONFIGURATION MANAGER) PSA-Total 0.55 <=3.90 ng/mL Comment: Interpretive [...] revised 21. Blood 07/29/2024 11:0 1 AM CONFIGURATION MANAGER 07/29/2024 11:33 AM CONFIGURATION MANAGER Narrative [facility] - 07/29/2024 12:39 PM CONFIGURATION MANAGER This lab is being obtained as part of a Kidney transplant evaluation, is time sensitive, and should only be drawn during the evaluation visit at [address] Jossie King MD LAB BLOOD ORDERABL ES Final Result Performing Organization Address [facility] Co de Phone Number [facility] [place] [address] * Hepatitis C antibody Blood (07/29/2024 11:01 AM CONFIGURATION MANAGER) [facility] Hep C Ab Nonreactive Nonreactive Comment:Antibodies to HCV no t detected. Does NOT exclude the possibility of recent exposure to HCV. Current interpretive data was last revised on 22 Blood 07/29/2024 11:0 1 AM CONFIGURATION MANAGER 07/29/2024 11:32 AM CONFIGURATION MANAGER Narrative [facility] - 07/29/2024 12:47 PM CONFIGURATION MANAGER This lab is being obtained as part of a Kidney transplant evaluation, is time sensitive, and should only be drawn during the evaluation visit at [address] Jossie King MD LAB MICROBIOLOGY - GENERAL ORDERABLES Final Result Performing Organization Address City/[facility]/ZIP Co de Phone Number [facility] [place] [address] * (ABNORMAL) Hemoglobin A1c (07/29/2024 11:01 AM CONFIGURATION MANAGER) [facility] Hgb A1C 9.0(H) 4.0 - 5.6 % Estimated Average Glucose 212 mg/dL [facility] Comment: The ADA recommends reporting an estimated Average Glucose (eAG) with all Hemoglobin A1c results using the equation derived from a study of 507 normal and diabetic adults. Minority populations were underrepresented and children were not included. (Diabetes Care 2020; 43(S1): S66-S76). The eAG is not equivalent to a fasting glucose. Blood 07/29/2024 11:0 1 AM CONFIGURATION MANAGER 07/29/2024 11:34 AM CONFIGURATION MANAGER Narrative [facility] - 07/29/2024 11:53 AM CONFIGURATION MANAGER This lab is being obtained as part of a Kidney transplant evaluation, is time sensitive, and should only be drawn during the evaluation visit at [facility]. us Jossie King MD LAB BLOOD ORDERABL ES Final Result [facility] Department [place] [address] * (ABNORMAL) Lipid panel (07/29/2024 11:01 AM CONFIGURATION MANAGER) Cholesterol 114 30 - 199 mg/dL [...] 2018. Triglycerides 66 <=149 mg/dL [facility] Comment: Interpretive Data Ages < or [...] on 2018. HDL 29(L) >=40 mg/dL [facility] Comment: Interpretive Data Ages < [...] 2018. LDL, calculated 71 <=129 mg/dL [facility] Comment: Interpretive Data Ages < [...] on 2024. Non-HDL Cholesterol 85 mg/dL [facility] Comment: Interpretive Data Ages < [...] last revised on 2018. Chol/HDL ratio 4 [facility] Blood 07/29/2024 11:0 1 AM CONFIGURATION MANAGER 07/29/2024 11:33 AM CONFIGURATION MANAGER Narrative [facility] - 07/29/2024 12:10 PM CONFIGURATION MANAGER This lab is being obtained as part of a Kidney transplant evaluation, is time sensitive, and should only be drawn during the evaluation visit at [facility] Lab. us Jossie King MD LAB BLOOD ORDERABL ES Final Result [facility] Department [place] [address] * (ABNORMAL) TSH (10/27/2023 2:30 AM CONFIGURATION MANAGER) Pathologist [facility] Thyroid Stimulating Hormone 13.20(H) 0.30 - 4.20 mcIUnit/mL Blood 10/27/2023 2:30 AM CONFIGURATION MANAGER 10/27/2023 2:42 AM CONFIGURATION MANAGER us Lorne Mcnulty MD LAB BLOOD ORDERABLES Final Result [facility] [address] Department [place] [address] from Last 3 Months or Most Recently Relevant to Health Maintenance
--- OUTSIDE RECORDS SUMMARY | 2025-03-19 10:30 | XMS_ITS | Referral Summary ---
Author Organization [facility] Address [address] [place] [address] Care Team Providers Care Medical Billing Service Name Role Phone Aditya Castro MD Primary Care Provider [phone] Alondra Lambert RN Unavailable Shannon Brock MD, Hamlet P. Unavailable [phone] Leandro Reyes MD Unavailable [phone] Encounters Date Type Department Care Team Description 02/20/2025 Telephone [facility] Transplant Kidney [address] [facility] [address] [place] [address] [phone] [place] [address] Alondra Lambert RN 02/20/2025 Telephone [facility] Transplant Kidney [facility] [facility] [phone] [place] [address] Alondra Lambert RN 02/13/2025 Telephone Cardiovascular and Thoracic Surgery 3023 [facility] [address] [place] [address] Lorne Mcnulty MD Med Refill [...] PUMP: Continue Omnipod 5 insulin pump with OneSource Virtual G6 CGM at home settings: TIME BASAL [...] 1 tablet (25 mcg total) by mouth certified ophthalmic surgical assistant before breakfast 30 tablet 1 11/04/19 24 [...] mg SL tablet 12/28/19 18 Active peg 023-nqdjyfeirigi-fs ycerin (ARTIFICAL TEARS) 1-0.2-0.2 % ophthalmic solution 1 drop 4 (four) times a day 07/07/20 22 Active potassium chloride ER 20 mEq CR tablet Active Active Problems Problem Noted Date Diagnosed Date End stage renal disease 07/29/2024 Nonrheumatic aortic valve stenosis 11/22/2023 Status post aortic valve replacement 11/22/2023 Status post coronary artery bypass grafting 10/2023 CAD in [place] artery 10/13/2023 Anemia 06/22/2022 Assessment & Plan (06/29/2022 10:12 AM DIMENSION MILL WORKER): Stable, likely 2/2 anemia from ESRD, [...] 06/22/2022 Assessment & Plan (06/29/2022 10:12 AM DIMENSION MILL WORKER): - Renal consulted, s/p CRRT in the ICU now back on PD. Tolerated well and nephrology following - Trialysis catheter removed - Continue vitamins for renal bone mineral disease. Assessment & Plan (06/28/2022 3:29 PM DIMENSION MILL WORKER): - Renal consulted, s/p CRRT in [...] 06/22/2022 Assessment & Plan (06/29/2022 10:12 AM DIMENSION MILL WORKER): C/b cardiogenic shock requiring impella in the setting of cath and AHRF 2/2 pulmonary edema, now resolved. TTE demonstrating recovered EF 65% with grade I diastolic dysfunction. - metop as above - continue low dose losartan 12.5mg daily, ok per nephro. Tolerating well - volume management per PD Assessment & Plan (06/28/2022 3:29 PM DIMENSION MILL WORKER): C/b cardiogenic shock requiring impella in [...] 06/22/2022 Assessment & Plan (06/29/2022 10:12 AM DIMENSION MILL WORKER): Converted to NSR overnight on 06/24. CHADsVASc of 4 not on anticoagulation prior to admission. - cardiology consulted - recommended ongoing rate control - holding off on a/c with high risk for bleeding while on DAPT - reduced metop to 25mg BID in the setting of hypotension, HR 70s NSR Assessment & Plan (06/28/2022 3:30 PM DIMENSION MILL WORKER): Converted to NSR overnight on 06/24. [...] 08/22/2021 Assessment & Plan (06/29/2022 10:11 AM DIMENSION MILL WORKER): With recurrent chest pain post-cath. He [...] today Assessment & Plan (06/28/2022 3:30 PM DIMENSION MILL WORKER): With recurrent chest pain post-cath. He [...] 06/22/2022 Assessment & Plan (06/29/2022 10:11 AM DIMENSION MILL WORKER): Secondary to NSTEMI, s/p Impella since removed on 06/10. Resolved. Assessment & Plan (06/23/2022 4:55 PM CDT): Secondary to NSTEMI, s/p Impella since removed on 06/10. Resolved. Assessment & Plan (06/22/2022 8:22 PM CDT): -Secondary to NSTEMI, s/p Impella since removed on 06/10. Acute hypoxemic respiratory failure 06/09/2022 Assessment & Plan (06/29/2022 10:12 AM DIMENSION MILL WORKER): Secondary to ACS and flash pulmonary [...] (06/10/2022): Added automatically from request for surgery [id number] Abnormal cardiovascular stress test 12/29/2020 Overview (12/29/2020): Added automatically from request for surgery [id number] Coronary artery disease of n ative artery of [place] heart with stable angina pectoris ([facility]) 05/23/2017 History of coronary artery stent placement [...] 01/18/2013 Assessment & Plan (06/29/2022 10:12 AM DIMENSION MILL WORKER): A1c well controlled on admission. He [...] session Assessment & Plan (06/28/2022 3:28 PM DIMENSION MILL WORKER): A1c well controlled on admission. He [...] doctor or pharmacy Never 12/01/2023 [facility] Utilities Answer Date Recorded In [...] week 08/01/2024 How often do you attend sabianist or druze serv ices? Never 08/01/2024 Do [...] on file Legal Sex Male 3:42 AM DIMENSION MILL WORKER Gender Identity Not on file Sexual Orientation Not on file Last Filed Vital Signs Vital Sign Reading Time Taken Comments Blood Pressure 122/75 07/29/2024 1:00 PM DIMENSION MILL WORKER Pulse 116 07/29/2024 1:00 PM DIMENSION MILL WORKER Temperature 36.8 C (98.2 F) 07/29/2024 1:00 PM DIMENSION MILL WORKER Respiratory Rate 16 12/01/2023 11:1 3 AM CDT Oxygen Saturation 96% 12/01/2023 11: 13 AM CDT Inhaled Oxygen Concentration - - Weight 121.2 kg (267 lb 1.6 oz) 07/29/2024 1:00 PM DIMENSION MILL WORKER Height 177.8 cm (5' 10) 07/29/2024 1:00 PM DIMENSION MILL WORKER Body Mass Index 38.32 07/29/2024 1:00 PM DIMENSION MILL WORKER Plan of Treatment Not on file Medical Devices Implanted Type Area Body Recall Instructor Device Identifier Shelf Expiration Date Model / Serial / Lot Kyle Vascular Device Clsr Perclose Prostyle Sut-Mediatd Closure-Repair Sys 43244-07 - [id number] Implanted:Qty: 1 on 06/10/2022 by Champ Osborne MD PhD at [facility] Other - see comments Right: Femoral Kyle Vascular 01/19/202419579-48 [employer] Mary Synergy Xd Monorail 2.5mm 48mm 144cm Delivery System 1 Access [id number] - [id number] Implanted:Qty: 1 on 06/07/2022 by Champ Osborne MD PhD at [facility] Stent [employer] Mary 10/27/2023 [id number] / / [id number] [employer] Mary Synergy Xd Monorail 3mm 24mm 144cm Delivery System 1 Access Port [id number] - [id number] Implanted:Qty: 1 on 06/07/2022 by Champ Osborne MD PhD at [facility] Stent [employer] Mary 07/28/2023 [id number] / / [id number] [employer] Mary Synergy Xd Monorail 2.5mm 12mm 144cm Delivery System 1 Access [id number] - [id number] - [id number] Implanted:Qty: 1 on 06/07/2022 by Champ Osborne MD PhD at [facility] Stent [employer] Mary 05/03/2023 [id number] / [id number] / [id number] Daig Mary [id number] Device Closure Angio-Seal Vip Bondek-Plus Polyglyd L70 Cm Od6 Fr Odsec.035 In Vascular - [id number] Implanted:Qty: 1 on 01/21/2021 by Hamlet Ortega Jr., MD at [facility] Left: Groin [employer] Mary [id number] / / Kyle Vascular Device Clsr Perclose Prostyle Sut-Mediatd Closure-Repair Sys 42080-11 - [id number] Implanted:Qty: 1 on 06/07/2022 by Champ Osborne MD PhD at [facility] Kyle Vascular 01/19/2024 [id number] / / [id number] Kyle Vascular Device Clsr Perclose Prostyle Sut-Mediatd Closure-Repair Sys 70105-05 - [id number] Implanted:Qty: 1 on 06/07/2022 by Champ Osborne MD PhD at [facility] Kyle Vascular 11/19/2023 [id number] / / [id number] Bard Access Systems Power-Trialysis 13fr 30cm 3 Lumen Kink Resistance Symmetric Tip [id number] - [id number] Implanted:Qty: 1 on 06/07/2022 by Champ Osborne MD PhD at [facility] Right: Jugular Ramirez Chapito 07/20/2024 [id number] / / [id number] Abi[employer] Inc Impella Cp Percutaneous Left Ventricular Assist Device 5210-5144 - [id number] Implanted:Qty: 1 on 06/07/2022 by Champ Osborne MD PhD at [facility] Left: Ventricle Abi[employer] Inc [id number] / / Bard Access Systems Power-Trialysis 13fr 20cm 3 Lumen Short Term Dialysis Straight [id number] - [id number] Implanted:Qty: 1 on 06/18/2022 at [facility] Ramirez Chapito 07/20/2024 [id number] / / [id number] Rl Biomet Inc Screw Bone Slf Drl Full Thread Locking 3.5x14mm Ti 100.035.14 - [id number] Implanted:Qty: 6 on 10/17/2023 by Lorne Mcnulty MD at [facility] N/A: Sternum Rl Bi[employer] Inc 100.035.1 4 / / Rl Biomet Inc Plate Bone Low Profile 6 Hole H Shape Sternum Ti 115.102.06 - [id number] Implanted:Qty: 2 on 10/17/2023 by Lorne Mcnulty MD at [facility] N/A: Sternum Rl [employer] Inc 115.102.0 6 / / Rl [employer]omet Inc Plate Bone Low Profile 6 Hole O Shape Sternum Ti 115.104.06 - [id number] Implanted:Qty: 1 on 10/17/2023 by Lorne Mcnulty MD at [facility] N/A: Sternum Rl [employer] 115.104.0 6 / / On-X Intrnl Valve Coronary Aortic Mechanical On X 25mm Onxane-25 - [id number] - [id number] Implanted:Qty: 1 on 10/17/2023 by Lorne Mcnulty MD at [facility] N/A: Heart On-X Intrnl 01/22/2028 ONXANE-25 / [id number] / Rl Biomet Inc Screw Bone Slf Drl Full Thread Locking 3.5x18mm Ti 100.035.18 - [id number] Implanted:Qty: 12 on 10/17/2023 by Lorne Mcnulty MD at [facility] N/A: Sternum Rl [employer] Inc 100.035.1 8 / / Explanted Type Area Body Recall Instructor Device Identifier Shelf Expiration Date Model / Serial / Lot Bard Peripheral Vascular Bard .25x.25in [place] Thk1.65mm Square Pledget Cardiovascular Ptfe 079029 - [id number] Explanted:Qty: 1 on 10/17/2023 by Lorne Mcnulty MD at [facility] N/A: Heart Bard Peripheral Vascular 05/18/2026 [id number] / / Procedures Procedure Name Priority Date/Time Associated Diagnosis Comments HEPATITIS C ANTIBODY Routine 07/29/2024 11:01 AM DIMENSION MILL WORKER End stage renal disease (HCC) EGFR Routine 07/29/2024 11:01 AM DIMENSION MILL WORKER End stage renal disease (HCC) HEMOGLOBIN A1C Routine 07/29/2024 11:01 AM DIMENSION MILL WORKER End stage renal disease (HCC) LIPID PANEL Routine 07/29/2024 11:01 AM DIMENSION MILL WORKER End stage renal disease (HCC) PSA SCREEN Routine 07/29/2024 11:01 AM DIMENSION MILL WORKER End stage renal disease (HCC) TSH Routine 10/27/2023 2:30 AM DIMENSION MILL WORKER from Last 3 Months or Most Recently Relevant to Health Maintenance Results * (ABNORMAL) eGFR (07/29/2024 11:01 AM DIMENSION MILL WORKER) eGFR 7(L) >=60 mL/min/1. 73 m2 [...] reviewed 2021. Blood 07/29/2024 11:0 1 AM DIMENSION MILL WORKER 07/29/2024 11:33 AM DIMENSION MILL WORKER us Jossie King MD LAB BLOOD ORDERABL ES Final Result [facility] Department [place] [address] * PSA screen (07/29/2024 11:01 AM DIMENSION MILL WORKER) PSA-Total 0.55 <=3.90 ng/mL Comment: Interpretive [...] revised 21. Blood 07/29/2024 11:0 1 AM DIMENSION MILL WORKER 07/29/2024 11:33 AM DIMENSION MILL WORKER Narrative [facility] - 07/29/2024 12:39 PM DIMENSION MILL WORKER This lab is being obtained as part of a Kidney transplant evaluation, is time sensitive, and should only be drawn during the evaluation visit at [address] Lab[address] Jossie King MD LAB BLOOD ORDERABL ES Final Result Performing Organization Address [facility] de Phone Number [facility] Department [place] [address] * Hepatitis C antibody Blood (07/29/2024 11:01 AM DIMENSION MILL WORKER) [facility] Hep C Ab Nonreactive Nonreactive Comment:Antibodies to HCV no t detected. Does NOT exclude the possibility of recent exposure to HCV. Current interpretive data was last revised on 22 Blood 07/29/2024 11:0 1 AM DIMENSION MILL WORKER 07/29/2024 11:32 AM DIMENSION MILL WORKER Narrative [facility] - 07/29/2024 12:47 PM DIMENSION MILL WORKER This lab is being obtained as part of a Kidney transplant evaluation, is time sensitive, and should only be drawn during the evaluation visit at [address] Jossie King MD LAB MICROBIOLOGY - GENERAL ORDERABLES Final Result Performing Organization Address [facility] de Phone Number [facility] Department [place] [address] * (ABNORMAL) Hemoglobin A1c (07/29/2024 11:01 AM DIMENSION MILL WORKER) [facility] Hgb A1C 9.0(H) 4.0 - 5.6 % Estimated Average Glucose 212 mg/dL [facility] Comment: The ADA recommends reporting an estimated Average Glucose (eAG) with all Hemoglobin A1c results using the equation derived from a study of 507 normal and diabetic adults. Minority populations were underrepresented and children were not included. (Diabetes Care 2020; 43(S1): S66-S76). The eAG is not equivalent to a fasting glucose. Blood 07/29/2024 11:0 1 AM DIMENSION MILL WORKER 07/29/2024 11:34 AM DIMENSION MILL WORKER Narrative [facility] - 07/29/2024 11:53 AM DIMENSION MILL WORKER This lab is being obtained as part of a Kidney transplant evaluation, is time sensitive, and should only be drawn during the evaluation visit at [facility] Lab. Jossie King MD LAB BLOOD ORDERABL ES Final Result [facility] Department [place] [address] * (ABNORMAL) Lipid panel (07/29/2024 11:01 AM DIMENSION MILL WORKER) Cholesterol 114 30 - 199 mg/dL [...] revised on 2018. Triglycerides 66 <=149 mg/dL [facility] Comment: Interpretive Data Ages [...] revised on 2018. HDL 29(L) >=40 mg/dL [facility] Comment: Interpretive Data Ages [...] on 2018. LDL, calculated 71 <=129 mg/dL [facility] Comment: Interpretive Data Ages < [...] revised on 2024. Non-HDL Cholesterol 85 mg/dL [facility] Comment: Interpretive Data Ages [...] last revised on 2018. Chol/HDL ratio [address] [facility] Blood 07/29/2024 11:0 1 AM DIMENSION MILL WORKER 07/29/2024 11:33 AM DIMENSION MILL WORKER Narrative [facility] - 07/29/2024 12:10 PM DIMENSION MILL WORKER This lab is being obtained as part of a Kidney transplant evaluation, is time sensitive, and should only be drawn during the evaluation visit at [facility] Lab. us Jossie King MD LAB BLOOD ORDERABL ES Final Result [facility] Department [place] [address] * (ABNORMAL) TSH (10/27/2023 2:30 AM DIMENSION MILL WORKER) [facility] Signature Thyroid Stimulating Hormone 13.20(H) 0.30 - 4.20 mcIUnit/mL Blood 10/27/2023 2:30 AM DIMENSION MILL WORKER 10/27/2023 2:42 AM DIMENSION MILL WORKER Lorne Mcnulty MD LAB BLOOD ORDERABLES Final Result Performing Organization Address City/[facility]/ZIP Co de Phone Number [facility] [address] Department [place] [address] from Last 3 Months or Most Recently Relevant to Health Maintenance Insurance [facility] MEDICARE ADVANTAGE [facility] MEDICARE ADVANTAGE TRANSPLANT [employer] MEDICARE RISK IDPA TRANSPLANT [employer] MEDICARE RISK IDPA Advance Directives For more information, please contact: [phone] * Full Code (Latest Code Status on [...] PM 06/05/2022 4:43 AM Care Teams Medical Billing Service Relationship Specialty Start Date End Date Aditya Castro MD [address] [facility] [place] [address] PCP - General 10/17/19 Alondra Lambert, RN [address] [address] Chef Teacher 03/06/24 Hamlet Ortega Jr., MD [address] [place] [address] Consulting Physician Cardiovascular Disease 05/10/24 Leandro Reyes MD [address] [facility] 1 [place] [address] Consulting Physician Nephrology 07/30/24
--- OUTSIDE RECORDS SUMMARY | 2025-03-19 10:30 | XMS_ITS ---
Author Organization [facility] Address [address] [place] [address] Care Team Providers Care Greenhouse Manager Name Role Phone Aditya Castro MD Primary Care Provider [phone] Alondra Lambert RN Unavailable [phone] Shannon Brock MD, Hamlet P. Unavailable [phone] Leandro Reyes MD Unavailable [phone] Transplant Episode Kidney Candidate [facility] ([place], [place]) [facility] Evaluation began on 05/10/2024 Marked as Active on 05/10/2024 Reason: Evaluation - Standard Kidney CoordinatorAlondra Lambert RN Fax: N/A Email: N/A Scores Score Value Updated Exceptions/Reas ons CPRA Not available EPTS (Calc) 80 03/19/2025 Care Team Name Role Phone Fax Email Alondra Lambert RN Kidney Coordinator [phone] N/A N/A Melany Kelly Primary Metal Numerical Tool Programmer N/A N/A N/A Chris Richard Packaging Engineer N/A N/A N/A Events Pre-Transplant Referred: 03/06/2024 Evaluation began: 05/10/2024 Dialysis History Dialysis History Start End Type Comments Center 10/16/2019 Peritoneal [facility] D[facility] Information Center Phone Fax Address [facility] [phone] [address] [facility] [address]
--- OUTSIDE RECORDS SUMMARY | 2025-03-19 10:30 | XMS_ITS | Encounter Summary ---
Author Organization [facility] Address [address], [place] [address] Phone Care Team Providers Care Teacher Theater Arts Name Role Phone Unavailable Primary Care Provider Unavailabl e Reason for Visit * Reason Comments Med Refill Encounter Details Date Type Department Care Team (Late st Contact Info) Description 07/04/2019 Refill [facility] [address] [address] Leandro Reyes MD [address] [address] Social History Tobacco Use Types Packs/Day Years [...]
--- OUTSIDE RECORDS SUMMARY | 2025-03-19 10:30 | XMS_ITS | Encounter Summary ---
Author Organization [facility] Address [address], [place] [address] Phone Care Team Providers Care Welding Supervisor Name Role Phone Unavailable Primary Care Provider Unavailabl e Reason for Visit * Reason Comments Med Refill Encounter Details Date Type Department Care Team (Late st Contact Info) Description 02/13/2019 Refill [facility] [address] [address] Leandro Reyes MD [address] [address] Social History Tobacco Use Types Packs/Day Years [...]
--- OUTSIDE RECORDS SUMMARY | 2025-03-19 10:30 | XMS_ITS | Clinical Summary ---
Author Organization 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 Active clopidogrel (PLAVIX) 75 mg Tablet Take [...] 50,000 Units by mouth. Active Insulin [place], Disposable, (TRUEPLUS PEN NEEDLE) 31 gauge x [...] (06/29/2022): Added automatically from request for surgery [id number] Right upper quadrant pain 09/24/2020 Pre-transplant evaluation for kidney transplant 03/24/2020 Overview (06/29/2022): Images from the original note were not included. Juvenal Daigle 1970 Referring Shake Maker: Leandro Reyes Dialysis Info: Type: PD Time: 160 days (11/05/2019) Blood Type: A Body mass index is 37.8 kg/m . ALERTS Channel Machine Operator: Vasthi Lizama NP Past Medical History: Diagnosis Date Anemia Arthritis Arthropathy osteo. back and knees see Dr. Norton CAD (coronary artery disease) Community acquired pneumonia 2017 [facility] hospitalized with double pneumonia Congestive heart failure Coronary artery disease Diabetes mellitus type 1 teens dx when he was 13. Insulin since he was dx. Insulin pump currently with dexacom. Vashti Lizama NP is sewage disposal engineer. DM (diabetes mellitus) TYPE 1 DVT (deep venous thrombosis) 2017 [facility]. ESRD on peritoneal dialysis Gout History of blood transfusion 2017 during admission for [place] HLD (hyperlipidemia) HTN (hypertension) Hypercholesteremia 5 years on med Hypertension 30's on medications. Kidney disease Myocardial infarction 2017 [facility]. Stent x1 placed. Neuropathy feet [...] file Gets together: Not on file Attends taoism service: Not on file Active member of [...] 07/02/2020: Committee Discussion Details: Pt brought to [facility] to discuss his cardiac workup. [...] is the impression of this social work faculty member that Juvenal Daigle has several positive factors [...] advised of safety concerns regarding immunosuppressants. Plan: railroad worker to provide supportive services as needed. Patient appears to be a reasonable candidate for transplant from a psychosocial perspective. -Post transplant arrangement forms are needed prior to being listed. Psychiatric Consult Recommended: No Transplant Drawer In Jacquard Loom: Radha Roper LCSW RD:05/14/2020 BMI= 40.0, Class [...] 177.8 cm (5' 10) 06/29/2022 6:00 PM PRECISION ASSEMBLER BENCH Body Mass Index 37.74 06/29/2022 6:00 PM PRECISION ASSEMBLER BENCH Plan of Treatment Health Maintenance Due Date [...] Advance Directives For more information, please contact: [phone] * Full Code (Latest Code Status on File) Date Activated Date Inactivated Comments 06/29/2022 2:49 PM 07/08/2022 4:30 PM Care Teams Research Lab Assistant Relationship Specialty Start Date End Date Aditya Castro MD PCP - General Student in an Organized Health Care Education/Training Program 09/11/18
--- OUTSIDE RECORDS SUMMARY | 2025-03-19 10:30 | XMS_ITS | Encounter Summary ---
Author Organization [facility] Address [address] [place] [address] Phone Care Team Providers Care Thoracic Medicine Specialist Name Role Phone Unavailable Primary Care Provider Unavailabl e Reason for Visit * Reason Comments Med Refill Encounter Details Date Type Department Care Team (Late st Contact Info) Description 01/25/2019 Refill [facility] [address] [facility] 1 [place] [address] Leandro Reyes MD 5[address] [facility] 1 [place] [address] Social History Tobacco Use Types [...]
--- OUTSIDE RECORDS SUMMARY | 2025-03-19 10:31 | XMS_ITS | Encounter Summary ---
Author Organization [facility] Address [address] [place] [address] Care Team Providers Care Secretary To The Vice President Name Role Phone Aditya Castro MD Primary Care Provider [phone] Encounter Details Date Type Department Care Team (Late st Contact Info) Description 04/15/2019 Telephone [facility] - [place] [address] [facility] [address] [place] [address] Fernando Schmid MD [address] [facility] [address] [place] [address] Social History Tobacco Use Types [...] on filedocumented in this encounter Care Teams Secretary To The Vice President Relationship Specialty Start Date End Date Aditya Castro MD PCP - General Student in an Organized Health Care Education/Training Program 09/11/18 documented as of this encounter
--- OUTSIDE RECORDS SUMMARY | 2025-03-19 10:31 | XMS_ITS | Encounter Summary ---
Author Organization [facility] Healthcare Address [address] [place] [address] Care Team Providers Care Bright Cutter Name Role Phone Jhonatan Bellamy MD Primary Care Provider [phone] Pedro Lakhani MD Primary Care Provider Eugenia Hughes MD Primary Care Provider [phone]- [phone] Aditya Castro MD Primary Care Provider [phone] Alondra Lambert RN Unavailable [phone] Shannon Brock MD, [place] P. Unavailable [phone] Leandro Reyes MD Unavailable [phone] Encounter Details Date Type Department Care Team (Late st Contact Info) Description 01/11/2018 Orders Only [facility] [place] [facility] Information Management [address] [place] [address] Scanning, Provider Social History Tobacco Use Types Packs/Day Years Used Date Smoking Tobacco: Never Smokeless Tobacco: Former Alcohol Use Standard Drinks/Week Comments No 0 (1 standard drink = 0.6 oz pur e alcohol) Sex and Gender Information Value Date Recorded Sex Assigned at Not on file Legal Sex Male 3:42 AM [employer]OVERY [employer] Gender Identity Not on file Sexual Orientation [...] documented as of this encounter Care Teams Bright Cutter Relationship Specialty Start Date End Date Jhonatan Bellamy MD [address] [place] [address] PCP - General 03/25/15 04/16/18 Pedro Lakhani MD [address] [facility] [address] PCP - General Family Practice 04/17/18 04/18/18 Eugenia Hughes MD [address] [place] [facility] [address] PCP - General Family Practice 04/19/18 10/16/19 Aditya Castro MD [address] [facility] [place] [address] PCP - General 10/17/19 Alondra Lambert, RN [address] [facility] [address] [place] [address] It Software Engineer 03/06/24 Hamlet Ortega Jr., MD [address] [place] [address] Consulting Physician Cardiovascular Disease 05/10/24 Leandro Reyes MD [address] [facility] [address] [place] [address] Consulting Physician Nephrology 07/30/24 documented as of this encounter
--- OUTSIDE RECORDS SUMMARY | 2025-03-19 10:31 | XMS_ITS | Encounter Summary ---
Author Organization [facility] Address [address] [place] [address] Care Team Providers Care Scientific Aide Name Role Phone Aditya Castro Primary Care Provider Unavailab le Reason for Visit * Reason Onset Date Comments Med Question 06/25/2019 Encounter Details Date Type Department Care Team (Late st Contact Info) Description 06/25/2019 Telephone [facility] [address] [place] [address] Finn Kramer MD [address] [place] [address] Med Question Social History Tobacco Use Types Packs/Day Years Used Date Smoking Tobacco: Never Smokeless Tobacco: Never Alcohol Use Standard Drinks/Week Comments No 0 (1 standard drink = 0.6 oz pur e alcohol) Sex and Gender Information Value Date Recorded Sex Assigned at Not on file 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 I called and spoke with Kashif at [facility] and gave clarification the the mmHg I let them know that they should Be the 20-30mmHg . He understood and will get them ready for pt. Anali Connelly E CUTTER AND SWAGER * Telephone Encounter - Theodore Huerta - 06/25/2019 10:40 AM CST Pt called saying patient pharmacy just needs clarification of a number on the prescription for compression socks. Please Advise. E CUTTER AND SWAGER documented in this encounter Plan of Treatment Upcoming Encounters Date Type Department Care Team (Late st Contact Info) Description 03/31/2025 10:20 AM CDT Office Visit [facility] - Surgery [address] [place] [address], [address] [phone] Abelardo Meyers MD [address] [place] [id number] documented as of this encounter Visit Diagnoses Not on filedocumented in this encounter Care Teams Scientific Aide Relationship Specialty Start Date End Date Aditya Castro Update Information PCP - General 03/06/19 documented as of this encounter
[2025-03-19] MEDS: BELLADONNA ALK/PHENOB ELIX 10 ML, MAG HYDROX/ALUMINUM HYD/SIMETH 30 ML, LIDOCAINE 2% VI... PO (10:46)
[2025-03-19] MEDS: INSULIN HUMAN REGULAR (*BKC) 100 UNITS/ML 8 UNITS IV PUSH (11:06)
--- NOTE | 2025-03-19 12:38 | ECG_ITS ---
Test Date: 2025-03-19 12:43:02 Measurements Intervals [place] Rate: 87 P: 0 WV: 0 QRS: -42 QRSD: 142 T: 127 QT: 396 QTc: 477 Interpretive Statements ATRIAL FIBRILLATION INTRAVENTRICULAR CONDUCTION DELAY Electronically Signed On 03-19-2025 13:11:20 CDT by Luís Arizmendi D.O
[2025-03-19 13:24] LABS: Troponin I 0.039 ng/mL (0.000-0.034)
--- NOTE | 2025-03-19 13:31 | ED_ITS ---
HPI - General Adult General Chief complaint: Chest Pain Stated complaint: heart attack last night Time Seen by Provider: 03/19/25 09:55 History of Present Illness HPI narrative: Patient is a 54-year-old male who presents ER with reports of chest discomfort. Reports he is having some acid reflux discomfort going up into his throat and then had some vomiting. No exertional chest discomfort. No sharp stabbing pain. No radiation into his shoulders. Reports pain is been ongoing for 3 days but now reports it has been 2 days. He had surgery on 03/17/2025 to have a av fistula graft placed in left arm. He has had some pain to the area is not increased. He still has strength in feeling in the arm. He is anticoagulated on warfarin. He did undergo peritoneal dialysis last night. No fevers or chills or sweats. No productive cough. Reports he has had poor oral intake over last 24-48 hours as he has just taken Tylenol with codeine to help his pain and he has been sleeping. Related Data Home Medications ?Medication ?Instructions ?Recorded ?Confirmed ?Last Taken ?Type calcitriol 0.25 mcg capsule 0.25 mcg PO QAM 06/04/19 11/22/24 11/22/24 History ergocalciferol (vitamin D2) 1,250 50,000 unit PO WEEKLY 06/04/19 11/22/24 11/18/24 History mcg (50,000 unit) capsule (Vitamin D2) nitroglycerin 0.4 mg sublingual 0.4 mg sublingual Q5-15M PRN Chest 06/04/19 11/22/24 05/19/23 16:30 History tablet Pain ezetimibe 10 mg tablet (Zetia) 10 mg PO DAILY 09/09/19 11/22/24 11/22/24 History cetirizine 10 mg tablet (All Day 10 mg PO DAILY 12/26/19 11/22/24 11/22/24 History Allergy (cetirizine)) atorvastatin 80 mg tablet 80 mg PO DAILY 11/26/20 11/22/24 11/22/24 History potassium chloride 20 mEq 20 meq PO DAILY Cramps 05/20/23 11/22/24 11/22/24 History tablet,extended release febuxostat 40 mg tablet 40 mg PO QPM 07/25/23 11/22/24 11/21/24 12:00 History linaclotide 72 mcg capsule 72 mcg PO DAILY PRN Diarrhea 07/25/23 11/22/24 Unknown History (Linzess) icosapent ethyl 1 gram capsule 1 g PO QID 02/16/24 11/22/24 11/22/24 History (Vascepa) torsemide 100 mg tablet 100 mg PO DAILY 02/16/24 11/22/24 11/22/24 History omeprazole 20 mg capsule,delayed 20 mg PO DAILY 06/06/24 11/22/24 11/22/24 History release amlodipine 10 mg tablet 10 mg PO HS 07/30/24 11/22/24 11/21/24 History calcium acetate(phosphat bind) 667 667 mg PO QID 07/30/24 11/22/24 11/22/24 History mg capsule glucagon 1 mg/0.2 mL subcutaneous See Rx Instructions .Route 07/30/24 11/22/24 Unknown History auto-injector (Gvoke HypoPen .COMPLEX PRN Hypoglycemia 2-Pack) famotidine 40 mg tablet 40 mg PO HS 08/17/24 11/22/24 11/21/24 History lidocaine 5 % topical patch 1 patch transdermal Q24H 08/17/24 11/22/24 Unknown History aspirin 81 mg capsule 81 mg PO DAILY 08/31/24 11/22/24 11/22/24 History colchicine 0.6 mg capsule 0.6 mg PO 3XW 08/31/24 11/22/24 11/22/24 History gentamicin 0.1 % topical cream 1 applic topical HS 08/31/24 11/22/24 11/22/24 History tamsulosin 0.4 mg capsule 0.4 mg PO BID 08/31/24 11/22/24 11/22/24 09:00 History insulin aspart U-100 100 unit/mL 15 unit subcut TIDWMEAL 09/23/24 11/22/24 11/22/24 History (3 mL) subcutaneous pen (Novolog FlexPen U-100 Insulin aspart) metoprolol tartrate 50 mg tablet 50 mg PO Q12H 09/23/24 11/22/24 11/22/24 09:00 History insulin NPH isoph U-100 human 100 40 unit subcut DAILY 11/22/24 11/22/24 11/21/24 History unit/mL (3 mL) subcutaneous pen (Humulin N NPH U-100 Insulin KwikPen) warfarin 5 mg tablet 3 mg PO DAILY 11/22/24 11/22/24 11/22/24 09:00 History Allergies Allergy/AdvReac Type Severity Reaction Status Date / Time allopurinol Allergy Severe Other Verified 03/19/25 09:52 iodine Allergy Severe Rash Verified 03/19/25 09:52 iohexol (From CONTRAST - CT, Allergy Severe Difficulty Verified 03/19/25 09:52 XRAY) Breathing ticagrelor Allergy Intermediate Rash Verified 03/19/25 09:52 Review of Systems 2 Review of Systems: All systems reviewed & are unremarkable except as noted in HPI and below Constitutional: Constitutional: Reports no additional constitutional complaints ENT: Reports system reviewed and no additional complaints, except as documented Cardiovascular: Cardiovascular: Reports no additional cardiovascular complaints Respiratory: Respiratory: Reports no additional respiratory complaints Gastrointestinal: Gastrointestinal: Reports no additional gastrointestinal complaints Neurologic: Reports system reviewed and no additional complaints, except as documented [facility] Past Medical History Medical History Chronic back pain Hematuria Right hand dominant Insulin dependent diabetes mellitus Chronic anticoagulation Paroxysmal atrial fibrillation Renal osteodystrophy Seizure X1 with etiology unknown End-stage renal disease on peritoneal dialysis Essential hypertension Gout Deep venous thrombosis Chronic right popliteal DVT. Coronary artery disease History of several stents including complex procedure at [facility] w/ stenting of a heavily calcified CX on OM using shockwave treatment. Gastroesophageal reflux disease Congestive heart failure Echocardiogram May 2017 EF of 50% with hypokinetic apical, inferior and basal inferior lateral segment, mild enlargement of left atrium. Anemia in chronic kidney disease Type 1 diabetes mellitus Onset around age 13. Diabetic retinopathy Diabetic peripheral neuropathy Obstructive sleep apnea With inconsistent CPAP use. Secondary hyperparathyroidism of renal origin Anxiety Arthritis Hyperlipidemia Surgical History Surgical History S/P triple vessel bypass Sep 2023; [facility] History of coronary angioplasty with insertion of stent Drug-eluting stents for high-grade OM 99% occlusion 05/2022. History of hernia repair Peritoneal dialysis catheter in place History of cataract extraction With lens implant History of open reduction and internal fixation (ORIF) procedure (1982) Left lower extremity fracture. And the right hip pinning when he was in the 8th grade History of arthroscopy of left knee History of anterior cruciate ligament surgery (2000) Left knee History of bilateral carpal tunnel release Right 05/03/2018. Left 06/02/2018. History of appendectomy (2006) History of cardiac catheterization 01/21/2021 catheterization at [facility], Dr. Hoover done: Little change from prior catheterization. Patent stents in the RCA and PDA. Previously jailed posterolateral is occluded and development of a 50% stenosis of a branch of om 1. Normal LV function. :August 2019 demonstrated patent stents with 40% stenosis of 1 vessel with no stents or angioplasty performed per patient report. :November 2018 at [facility] - stent x3. :March 2017 demonstrating mild diffuse coronary disease 80% lesion small sub branch of obtuse marginal 1 and 90% stenosis distal RCA into the origin of the PDA with PTCA and stent to the RPDA/distal RCA performed by Dr. Petit. Family History Family History Father , in his late 60s Acute myocardial infarction Premature coronary artery disease; <65yo CHF (congestive heart failure) Dementia Hypertension S/P triple vessel bypass 1980s Mother Lung cancer Hypertension Daughter Celiac disease Social History Social History Social History: Surrogate medical decision maker: Hodan Pilo (daughter) or Lorne Daigle (brother). Code status: Full code. Smoking status: Never smoker Second hand tobacco smoke exposure: No Alcohol intake: never Substance use: never Substance use type: does not use Do You Feel Safe in your Home?: Yes Lack of Transportation: No Lack of Food: Never True Current Housing: I Have Housing Concerned About Future Housing: No Difficulty Paying Gas/Electric Bills: No Difficulty Paying for Meds: No Currently Unemployed: No Education: High School Diploma/GED Difficulty w/ Childcare or Family Care: No Living arrangements: alone Additional living arrangements comments: He is single and has 3 children. 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 Spiritual care concerns: No Agree to blood products: Yes Exam 2 Narrative: GENERAL: Well-appearing, obese, and in no acute distress. HEAD: Normocephalic, atraumatic. ENT: Mucous membranes moist. CHEST: Clear to auscultation. No respiratory distress. HEART: Irregularly irregular rate and rhythm. Normal peripheral pulses. ABDOMEN: Soft, nontender, nondistended. EXTREMITIES: Normal range of motion. No edema. SKIN: Warm, dry, no rash. NEURO: Alert and oriented x3. PSYCH: Normal mood and affect. Course Course Emergency Course: Patient resting comfortably. Symptoms improved with GI cocktail. Troponin chronically elevated but not trending up. Sodium 131. Potassium normal. Glucose was elevated 400 in received IV insulin with repeat testing at 284. Unchanged pleural effusion on left side. EKG with AFib but no ST changes. Vital Signs Vital signs: Vital Signs Temperature 98.1 F 03/19/25 09:33 Pulse Rate 90 03/19/25 09:33 Respiratory Rate 16 03/19/25 09:33 Blood Pressure 107/57 L 03/19/25 09:33 Pulse Oximetry 95 03/19/25 09:33 Oxygen Delivery Room Air 03/19/25 09:33 Temperature 98.1 F 03/19/25 09:33 Pulse Rate 96 03/19/25 10:52 Respiratory Rate 14 03/19/25 10:52 Blood Pressure 118/76 03/19/25 10:31 Pulse Oximetry 95 03/19/25 09:51 Oxygen Delivery Room Air 03/19/25 09:51 Medical Decision Making Vital Signs Vital Signs: Vital Signs Temperature 98.1 F 03/19/25 09:33 Pulse Rate 90 03/19/25 09:33 Respiratory Rate 16 03/19/25 09:33 Blood Pressure 107/57 L 03/19/25 09:33 Pulse Oximetry 95 03/19/25 09:33 Oxygen Delivery Room Air 03/19/25 09:33 Temperature 98.1 F 03/19/25 09:33 Pulse Rate 96 03/19/25 10:52 Respiratory Rate 14 03/19/25 10:52 Blood Pressure 118/76 03/19/25 10:31 Pulse Oximetry 95 03/19/25 09:51 Oxygen Delivery Room Air 03/19/25 09:51 Lab Data 03/19/25 09:49 03/19/25 09:49 Labs: Lab Results 03/19/25 03/19/25 03/19/25 Range/Units 09:49 12:19 12:45 WBC 6.4 (4.5-10.0) K/mm3 RBC 4.20 L (4.6-6.20) M/mm3 Hgb 12.3 L (14.0-18.0) g/dL Hct 38.0 L (42.0-52.0) % MCV 90.5 (80-100) fl MCH 29.3 (26-34) pg MCHC 32.4 (32-36) g/dl RDW 14.7 H (11.5-14.5) % Plt Count 211 (150-375) k/mm3 MPV 10.3 (7.4-10.4) fl Immature Gran % (Auto) 0.5 (0-0.5) % Neut % (Auto) 56.7 (45.5-73.1) % Lymph % (Auto) 19.2 (18.3-44.2) % [place] % (Auto) 17.6 H (2.6-8.5) % Eos % (Auto) 5.2 H (0-4.4) % Baso % (Auto) 0.8 (0.2-1.2) % Lymph # (Auto) 1.22 (0.9-3.2) K/mm3 [place] # (Auto) 1.1 H (0.1-0.6) K/mm3 Eos # (Auto) 0.3 (0-0.3) K/mm3 Baso # (Auto) 0.1 (0.0-0.1) K/mm3 Abs Immat Gran (auto) 0.03 (0.00-0.031) K/mm3 Absolute Neuts (auto) 3.6 (1.3-6.7) K/mm3 Absolute Nucleated RBC 0.000 (0.0-0.012) K/mm3 Nucleated RBC % 0.0 (0.0-0.2) % PT 27.5 H (11.1-14.7) Seconds INR 2.6 APTT 51.0 H (22.3-36.8) Seconds Sodium 131 L (137-145) mmol/L Potassium 4.3 (3.4-5.0) mmol/L Chloride 90 L (98-107) mmol/L Carbon Dioxide 26 (22-30) mmol/L Anion Gap 15 H (4-12) mmol/L BUN 42 H (9-20) mg/dL Creatinine 10.29 H (0.7-1.3) mg/dL Estim Creat Clear Calc 10 ml/min Estimated GFR 5 L (59 - ) Glucose 400 H (65-110) mg/dL POC Capillary Glucose 284 H (65-105) mg/dl Calcium 9.3 (8.4-10.2) mg/dL Total Bilirubin 0.5 (0.2-1.3) mg/dL AST 37 (17-59) U/L ALT 15 (6-50) U/L Alkaline Phosphatase 89 (38-126) U/L Troponin I 0.042 H* 0.039 H* (0.000-0.034) ng/mL Total Protein 7.3 (6.3-8.2) g/dL Albumin 3.8 (3.5-5.1) g/dL Lipase 65 (23-300) U/L Imaging Data Radiologist's impression: ITS Impressions Chest X-Ray 03/19/25 10:55 IMPRESSION: Moderate left-sided pleural effusion, unchanged from 11/29/2024 Discharge Plan Discharge Clinical Impression: GERD (gastroesophageal reflux disease) Patient Disposition: Home Condition: Stable Instructions: GERD (Gastroesophageal Reflux Disease) (ED) Additional Instructions: Return to the emergency department if you develop severe abdominal pain, severe nausea and vomiting to the point where you are unable to keep down fluids, if you develop chest pain or difficulty breathing, blood in your stool, dizziness or fainting, or if you develop any other new or concerning symptoms as these could be signs of more serious medical illness. Try to stay well hydrated. Patient Language: Swedish Prescriptions: New pantoprazole 40 mg tablet,delayed release (DR/EC) 40 mg PO HS Qty: 14 0RF No Action calcitriol 0.25 mcg Capsule 0.25 mcg PO QAM ergocalciferol (vitamin D2) [Vitamin D2] 50,000 unit Capsule 50,000 unit PO WEEKLY Rx Instructions: on mondays at 0900 nitroglycerin 0.4 mg Tablet, Sublingual 0.4 mg SUBLINGUAL Q5-15M PRN (Reason: Chest Pain) Patient Comments: pt states he needs his prescription renewed (DME) Omnipod 5 G6 Pods (Gen 5) Cartridge SUBCUT Qty: 45 2RF Rx Instructions: Change every 48 hours metoprolol tartrate 50 mg tablet 50 mg PO Q12H Patient Comments: patient states he takes 50mg BID (0900, 2100) not 100mg Daily insulin aspart U-100 [Novolog FlexPen U-100 Insulin] 100 unit/mL (3 mL) insulin pen 15 unit subcut TIDWMEAL Rx Instructions: Take 12 units premeal +SSI 150-170: 1 unit 171-190: 2 units 191-210: 3 units 210-230: 4 units 231-250: 5 units 251-270: 6 units 271-290: 7 units 291-310: 8 units 310-330: 9 units 331-350: 10 units 351-370: 11 units 371-390: 12 units 391-410: 13 units >411 14 units ezetimibe [Zetia] 10 mg Tablet 10 mg PO DAILY cetirizine [All Day Allergy (cetirizine)] 10 mg Tablet 10 mg PO DAILY atorvastatin 80 mg tablet 80 mg PO DAILY albuterol sulfate [ProAir HFA] 90 mcg/actuation HFA aerosol inhaler 1 inh inhalation QID PRN (Reason: shortness of breath or wheezing) Qty: 8.5 0RF febuxostat 40 mg tablet 40 mg PO QPM Linzess 72 mcg capsule 72 mcg PO DAILY PRN (Reason: Diarrhea) omeprazole 20 mg capsule,delayed release(DR/EC) 20 mg PO DAILY aspirin 81 mg capsule 81 mg PO DAILY colchicine 0.6 mg capsule 0.6 mg PO 3XW Rx Instructions: monday, monday, fridays gentamicin 0.1 % cream 1 applic topical HS tamsulosin 0.4 mg capsule 0.4 mg PO BID Patient Comments: 0900, 1700 potassium chloride 20 mEq tablet extended release 20 meq PO DAILY torsemide 100 mg tablet 100 mg PO DAILY icosapent ethyl [Vascepa] 1 gram capsule 1 g PO QID amlodipine 10 mg tablet 10 mg PO HS Gvoke HypoPen 2-Pack 1 mg/0.2 mL auto-injector See Rx Instructions .ROUTE .COMPLEX PRN (Reason: Hypoglycemia) Rx Instructions: INJECT 1 MG(0.2 ML) UNDER THE SKIN ONCE A SINGLE DOSE, MAY REPEAT ONCE AFTER 15 MINUTES IF NO RESPONSE calcium acetate(phosphat bind) 667 mg capsule 667 mg PO QID cyclobenzaprine 10 mg tablet 5 - 10 mg PO TID PRN (Reason: muscle spasm) Qty: 10 0RF famotidine 40 mg tablet 40 mg PO HS lidocaine 5 % adhesive patch,medicated 1 patch transdermal Q24H Patient Comments: Back warfarin 5 mg tablet 3 mg PO DAILY Humulin N NPH Insulin KwikPen 100 unit/mL (3 mL) insulin pen 40 unit subcut DAILY Patient Comments: Patient states it is 40 not 30 Rx Instructions: take 30 units before peritoneal dialysis cefdinir 300 mg capsule 300 mg PO Q12H Qty: 20 0RF clindamycin HCl [Cleocin HCl] 150 mg capsule 150 mg PO Q6H 7 Days Qty: 28 0RF (DME) pen needle, diabetic [BD Lucrecia 2nd Gen Pen Needle] 32 gauge x 5/32 needle See Rx Instructions .ROUTE .COMPLEX Qty: 400 1RF Dose Instruction: TO ADMINISTER INSULIN DIRECTED Rx Instructions: TO ADMINISTER INSULIN 4 times daily levothyroxine 25 mcg tablet 25 mcg PO DAILY Qty: 90 1RF insulin glargine U-300 conc [Toujeo SoloStar U-300 Insulin] 300 unit/mL (1.5 mL) insulin pen 50 unit subcut DAILY 90 Days Qty: 18 2RF (DME) OneTouch Verio test strips Strip See Rx Instructions .Route Qty: 300 0RF Rx Instructions: test bs 3 times daily (DME) Dexcom G6 Sensor Device See Rx Instructions .Route Qty: 9 0RF Rx Instructions: change every 10 days (DME) Dexcom G6 Transmitter Device See Rx Instructions .Route Qty: 1 0RF Rx Instructions: change every 90 days Follow-up/Referrals: Matthew,MD Aditya [Primary Care Provider] - 1 Week
== END 2025-03-19 14:00 | disposition home or self-care (01) ==
PROVIDERS: Emergency Provider Emergency Medicine; PCP Family Medicine
DX: K21.9 Gastro-esophageal reflux disease without esophagitis (principal); E10.22 Type 1 diabetes mellitus with diabetic chronic kidney disease; I13.2 Hypertensive heart and chronic kidney disease with heart failure and with stage 5 chronic kidney disease, or end stage renal disease; I50.9 Heart failure, unspecified; N18.6 End stage renal disease; Z99.2 Dependence on renal dialysis; I48.0 Paroxysmal atrial fibrillation; N25.81 Secondary hyperparathyroidism of renal origin; N25.0 Renal osteodystrophy; E10.319 Type 1 diabetes mellitus with unspecified diabetic retinopathy without macular edema; E10.42 Type 1 diabetes mellitus with diabetic polyneuropathy; E78.5 Hyperlipidemia, unspecified; I25.10 Atherosclerotic heart disease of native coronary artery without angina pectoris; G47.33 Obstructive sleep apnea (adult) (pediatric); M10.9 Gout, unspecified; M19.90 Unspecified osteoarthritis, unspecified site; F41.9 Anxiety disorder, unspecified; Z95.1 Presence of aortocoronary bypass graft; Z86.718 Personal history of other venous thrombosis and embolism; Z96.1 Presence of intraocular lens; Z98.49 Cataract extraction status, unspecified eye; Z79.01 Long term (current) use of anticoagulants; Z79.82 Long term (current) use of aspirin; Z79.4 Long term (current) use of insulin; Z79.899 Other long term (current) drug therapy; I45.9 Conduction disorder, unspecified
CPT/HCPCS: 36415; 71046; 80053; 82948; 83690; 84484; 85025; 85610; 85730; 93005; 96374; 99284; A9270; J1815

== ENCOUNTER 2025-03-20 16:43 | Emergency (ER) | payer MEDICARE, MEDICAID, SELFPAY ==
--- NOTE | ~2025-03-20 | US_ITS ---
EXAMINATION:US venous doppler UE LT INDICATION:Postoperative evaluation of erythema and ecchymosis TECHNIQUE: Multiple grayscale, color flow and Doppler images of the left upper extremity deep venous systems were obtained and reviewed. COMPARISON:None FINDINGS: The left jugular, subclavian, axillary, brachial, basilic, cephalic, radial and ulnar veins demonstrate normal respiratory variation, augmentation and compressibility. Color flow is also seen within the left jugular, subclavian, axillary, brachial, basilic, cephalic an d radial veins. IMPRESSION: No left upper extremity deep venous thrombosis. Reviewed, dictated and finalized at location A.
[2025-03-20 16:43] VITALS: BP 107/62; PULSE 91; RESP 20; TEMP 36.7
--- NOTE | 2025-03-20 17:07 | ED.RECABL ---
HPI - Recheck/Abnormal Lab/Rx General Chief Complaint: Recheck/Abnormal Lab/Rx Stated Complaint: hyperglycemic Time Seen by Provider: 03/20/25 17:00 Source: patient Mode of arrival: ambulatory Limitations: no limitations History of Present Illness HPI narrative: Patient is a 54 y/o male, with PMH of DM1, ESRD on peritoneal dialysis, CHF, CAD s/p CABG, mechanical valve replacement on Warfarin, who presents the ED with report of elevated blood sugars. Reports his blood sugars have been elevated into upper 300s, low 400s over the past several days. States he could not get a reading on his glucometer today. States he has not eaten since last night. States he gave himself 50 additional units of insulin today. Reports he has been somewhat out of it recently, denies N/V, fevers. Had a fistula placed in his left upper extremity by Dr. Meyers at [facility]. States he has had bruising, redness, pain surrounding it. Related Data Home Medications ?Medication ?Instructions ?Recorded ?Confirmed ?Last Taken ?Type calcitriol 0.25 mcg capsule 0.25 mcg PO QAM 06/04/19 11/22/24 11/22/24 History ergocalciferol (vitamin D2) 1,250 50,000 unit PO WEEKLY 06/04/19 11/22/24 11/18/24 History mcg (50,000 unit) capsule (Vitamin D2) nitroglycerin 0.4 mg sublingual 0.4 mg sublingual Q5-15M PRN Chest 06/04/19 11/22/24 05/19/23 16:30 History tablet Pain ezetimibe 10 mg tablet (Zetia) 10 mg PO DAILY 09/09/19 11/22/24 11/22/24 History cetirizine 10 mg tablet (All Day 10 mg PO DAILY 12/26/19 11/22/24 11/22/24 History Allergy (cetirizine)) atorvastatin 80 mg tablet 80 mg PO DAILY 11/26/20 11/22/24 11/22/24 History potassium chloride 20 mEq 20 meq PO DAILY Cramps 05/20/23 11/22/24 11/22/24 History tablet,extended release febuxostat 40 mg tablet 40 mg PO QPM 07/25/23 11/22/24 11/21/24 12:00 History linaclotide 72 mcg capsule 72 mcg PO DAILY PRN Diarrhea 07/25/23 11/22/24 Unknown History (Linzess) icosapent ethyl 1 gram capsule 1 g PO QID 02/16/24 11/22/24 11/22/24 History (Vascepa) torsemide 100 mg tablet 100 mg PO DAILY 02/16/24 11/22/24 11/22/24 History omeprazole 20 mg capsule,delayed 20 mg PO DAILY 06/06/24 11/22/24 11/22/24 History release amlodipine 10 mg tablet 10 mg PO HS 07/30/24 11/22/24 11/21/24 History calcium acetate(phosphat bind) 667 667 mg PO QID 07/30/24 11/22/24 11/22/24 History mg capsule glucagon 1 mg/0.2 mL subcutaneous See Rx Instructions .Route 07/30/24 11/22/24 Unknown History auto-injector (Gvoke HypoPen .COMPLEX PRN Hypoglycemia 2-Pack) famotidine 40 mg tablet 40 mg PO HS 08/17/24 11/22/24 11/21/24 History lidocaine 5 % topical patch 1 patch transdermal Q24H 08/17/24 11/22/24 Unknown History aspirin 81 mg capsule 81 mg PO DAILY 08/31/24 11/22/24 11/22/24 History colchicine 0.6 mg capsule 0.6 mg PO 3XW 08/31/24 11/22/24 11/22/24 History gentamicin 0.1 % topical cream 1 applic topical HS 08/31/24 11/22/24 11/22/24 History tamsulosin 0.4 mg capsule 0.4 mg PO BID 08/31/24 11/22/24 11/22/24 09:00 History insulin aspart U-100 100 unit/mL 15 unit subcut TIDWMEAL 09/23/24 11/22/24 11/22/24 History (3 mL) subcutaneous pen (Novolog FlexPen U-100 Insulin aspart) metoprolol tartrate 50 mg tablet 50 mg PO Q12H 09/23/24 11/22/24 11/22/24 09:00 History insulin NPH isoph U-100 human 100 40 unit subcut DAILY 11/22/24 11/22/24 11/21/24 History unit/mL (3 mL) subcutaneous pen (Humulin N NPH U-100 Insulin KwikPen) warfarin 5 mg tablet 3 mg PO DAILY 11/22/24 11/22/24 11/22/24 09:00 History Allergies Allergy/AdvReac Type Severity Reaction Status Date / Time allopurinol Allergy Severe Other Verified 03/20/25 16:50 iodine Allergy Severe Rash Verified 03/20/25 16:50 iohexol (From CONTRAST - CT, Allergy Severe Difficulty Verified 03/20/25 16:50 XRAY) Breathing ticagrelor Allergy Intermediate Rash Verified 03/20/25 16:50 Review of Systems Review of Systems: All systems reviewed & are unremarkable except as noted in HPI. All systems reviewed & are unremarkable except as noted in HPI and below PMFSH Past Medical History Medical History Chronic back pain Hematuria Right hand dominant Insulin dependent diabetes mellitus Chronic anticoagulation Paroxysmal atrial fibrillation Renal osteodystrophy Seizure X1 with etiology unknown End-stage renal disease on peritoneal dialysis Essential hypertension Gout Deep venous thrombosis Chronic right popliteal DVT. Coronary artery disease History of several stents including complex procedure at [place] w/ stenting of a heavily calcified CX on OM using shockwave treatment. Gastroesophageal reflux disease Congestive heart failure Echocardiogram May 2017 EF of 50% with hypokinetic apical, inferior and basal inferior lateral segment, mild enlargement of left atrium. Anemia in chronic kidney disease Type 1 diabetes mellitus Onset around age 13. Diabetic retinopathy Diabetic peripheral neuropathy Obstructive sleep apnea With inconsistent CPAP use. Secondary hyperparathyroidism of renal origin Anxiety Arthritis Hyperlipidemia Surgical History Surgical History S/P triple vessel bypass Sep 2023; [facility] History of coronary angioplasty with insertion of stent Drug-eluting stents for high-grade OM 99% occlusion 05/2022. History of hernia repair Peritoneal dialysis catheter in place History of cataract extraction With lens implant History of open reduction and internal fixation (ORIF) procedure (1982) Left lower extremity fracture. And the right hip pinning when he was in the 8th grade History of arthroscopy of left knee History of anterior cruciate ligament surgery (2000) Left knee History of bilateral carpal tunnel release Right 05/03/2018. Left 06/02/2018. History of appendectomy (2006) History of cardiac catheterization 01/21/2021 catheterization at , Dr. Hoover done: Little change from prior catheterization. Patent stents in the RCA and PDA. Previously jailed posterolateral is occluded and development of a 50% stenosis of a branch of om 1. Normal LV function. :August 2019 demonstrated patent stents with 40% stenosis of 1 vessel with no stents or angioplasty performed per patient report. :November 2018 at [facility] - stent x3. :March 2017 demonstrating mild diffuse coronary disease 80% lesion small sub branch of obtuse marginal 1 and 90% stenosis distal RCA into the origin of the PDA with PTCA and stent to the RPDA/distal RCA performed by Dr. Petit. Family History Family History Father , in his late 60s Acute myocardial infarction Premature coronary artery disease; <65yo CHF (congestive heart failure) Dementia Hypertension S/P triple vessel bypass 1980s Mother Lung cancer Hypertension Daughter Celiac disease Social History Social History Social History: Surrogate medical decision maker: Hodan Daigle (daughter) or Lorne Daigle (brother). Code status: Full code. Smoking status: Never smoker Second hand tobacco smoke exposure: No Alcohol intake: never Substance use: never Substance use type: does not use Do You Feel Safe in your Home?: Yes Lack of Transportation: No Lack of Food: Never True Current Housing: I Have Housing Concerned About Future Housing: No Difficulty Paying Gas/Electric Bills: No Difficulty Paying for Meds: No Currently Unemployed: No Education: High School Diploma/GED Difficulty w/ Childcare or Family Care: No Living arrangements: alone Additional living arrangements comments: He is single and has 3 children. 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 Spiritual care concerns: No Agree to blood products: Yes Exam Narrative: GENERAL: Chronically ill appearing, obese with BMI Of 37.4, non-toxic, in no acute distress. HEAD: Normocephalic, atraumatic. RESPIRATORY: Airway patent, respirations nonlabored. Clear to auscultation bilaterally, no rales, rhonchi, wheezing. CARDIOVASCULAR: Regular rate and rhythm without murmurs, rubs, or gallops. Peripheral pulses are intact. ABDOMINAL: Soft, nontender, nondistended. Normoactive BS. MUSCULOSKELETAL: Moves all extremities. No gross deformities. Fistula of L forearm w/ surrounding bruising, slight erythema, no warmth or fluctuance. Wound itself appears to be healing well, sutures in place, no evidence of dehiscence. No drainage. No bleeding. No fluctuance. SKIN: Warm, dry, normal color. NEURO: A&O X3. Speech clear. Cranial nerves II-XII grossly intact. Steady gait. No ataxic movements. PSYCHIATRIC: Appropriate mood and affect. Normal interaction. Course Vital Signs Vital signs: Vital Signs Temperature 98.1 F 03/20/25 16:43 Pulse Rate 91 03/20/25 16:43 Respiratory Rate 20 03/20/25 16:43 Blood Pressure 107/62 03/20/25 16:43 Oxygen Delivery Room Air 03/20/25 16:43 Temperature 98.2 F 03/20/25 19:24 Pulse Rate 83 03/20/25 22:42 Respiratory Rate 16 03/20/25 22:42 Blood Pressure 100/59 L 03/20/25 22:42 Pulse Oximetry 97 03/20/25 22:42 Oxygen Delivery Room Air 03/20/25 16:43 MDM - Recheck/Abnormal Lab/Rx MDM Narrative Medical decision making narrative: Patient presented to ED with concern for hyperglycemia. Also reports having fistula placed in left arm on Monday. Reporting some bruising redness surrounding. Vital signs are stable upon arrival. Patient in no acute distress. No evidence of DKA on laboratory studies. ABG without acidosis. Normal pCO2 and bicarb. CMP bicarb 24, no anion gap. Blood sugar is elevated at 332. Beta hydroxybutyrate within normal range. He is not meeting criteria for DKA at this time. Given 5 units of IV insulin. Blood sugars did increase in to mid 200s. Patient is a dialysis patient. Skeptical to give fluids. Sodium low at 124 on CMP. This is corrected to 130 accounting for hyperglycemia. Cbc without leukocytosis. Chronic mild anemia. INR is therapeutic at 3.5. History of mechanical valve. UA does appear consistent with urinary tract infection. Will be started on antibiotics for this. Previous recent urine culture resulted positive for Klebsiella. Pansensitive. Patient given dose of Rocephin in the ED. Will be started on Keflex. Venous Doppler ultrasound was obtained and unremarkable. No evidence of hematoma, fluid collection, pseudoaneurysm, DVT. Overall feel workup is reassuring. Feel patient is safe for discharge home at this time to continue home medications, close outpatient follow-up. Patient in agreement. Given strict return precautions. Discharged in stable condition. Medical Records Attestation: I reviewed the patient's medical records. Lab Data Attestation: I reviewed the patient's lab results. 03/20/25 17:17 03/20/25 17:17 Labs: Lab Results 03/20/25 03/20/25 03/20/25 Range/Units 16:52 17:15 17:17 WBC 4.3 L (4.5-10.0) K/mm3 RBC 3.73 L (4.6-6.20) M/mm3 Hgb 11.0 L (14.0-18.0) g/dL Hct 33.5 L (42.0-52.0) % MCV 89.8 (80-100) fl MCH 29.5 (26-34) pg MCHC 32.8 (32-36) g/dl RDW 14.6 H (11.5-14.5) % Plt Count 200 (150-375) k/mm3 MPV 10.4 (7.4-10.4) fl Immature Gran % (Auto) 0.5 (0-0.5) % Neut % (Auto) 44.1 L (45.5-73.1) % Lymph % (Auto) 27.8 (18.3-44.2) % [place] % (Auto) 22.5 H (2.6-8.5) % Eos % (Auto) 4.4 (0-4.4) % Baso % (Auto) 0.7 (0.2-1.2) % Lymph # (Auto) 1.20 (0.9-3.2) K/mm3 [place] # (Auto) 1.0 H (0.1-0.6) K/mm3 Eos # (Auto) 0.2 (0-0.3) K/mm3 Baso # (Auto) 0.0 (0.0-0.1) K/mm3 Abs Immat Gran (auto) 0.02 (0.00-0.031) K/mm3 Absolute Neuts (auto) 1.9 (1.3-6.7) K/mm3 Absolute Nucleated RBC 0.000 (0.0-0.012) K/mm3 Nucleated RBC % 0.0 (0.0-0.2) % PT 34.1 H D (11.1-14.7) Seconds INR 3.5 APTT 71.6 H (22.3-36.8) Seconds Methemoglobin 0.1 (0-1.5) %THb Sodium 124 L (137-145) mmol/L Potassium 4.3 (3.4-5.0) mmol/L Chloride 88 L (98-107) mmol/L Carbon Dioxide 24 (22-30) mmol/L Anion Gap 12 (4-12) mmol/L BUN 42 H (9-20) mg/dL Creatinine 10.10 H (0.7-1.3) mg/dL Estim Creat Clear Calc Not Reportable Estimated GFR 5 L (59 - ) Glucose 332 H (65-110) mg/dL POC Capillary Glucose 324 H (65-105) mg/dl Calcium 9.1 (8.4-10.2) mg/dL Phosphorus 5.3 H (2.5-4.5) mg/dL Magnesium 1.9 (1.6-2.3) mg/dL Total Bilirubin 0.5 (0.2-1.3) mg/dL AST 38 (17-59) U/L ALT 11 (6-50) U/L Alkaline Phosphatase 93 (38-126) U/L Total Protein 6.7 (6.3-8.2) g/dL Albumin 3.4 L (3.5-5.1) g/dL Beta-Hydroxybutyrate/Acetoacetate 0.11 (0.02-0.27) mmol/L Urine Color (Yellow) Urine Appearance (Clear) Urine pH (5.0-9.0) Ur Specific [place] (1.001-1.035) Urine Protein (Negative) mg/dL Urine Glucose (UA) (Negative) mg/dL Urine Ketones (Negative) mg/dL Ur Blood (Man) (Negative) Urine Nitrate (Negative) Urine Bilirubin (Negative) Urine Urobilinogen (<2.0) mg/dL Add Ur Microanalysis Leukocyte Esterase Rfl (Negative) BENJAMIN/UL Urine RBC (0-2) /hpf Urine WBC (0-3) /hpf Ur Squamous Epith Cells (Few) /hpf Urine Bacteria /hpf Urine Casts Urine Mucus /lpf 03/20/25 03/20/25 03/20/25 Range/Units 19:27 20:02 20:13 WBC (4.5-10.0) K/mm3 RBC (4.6-6.20) M/mm3 Hgb (14.0-18.0) g/dL Hct (42.0-52.0) % MCV (80-100) fl MCH (26-34) pg MCHC (32-36) g/dl RDW (11.5-14.5) % Plt Count (150-375) k/mm3 MPV (7.4-10.4) fl Immature Gran % (Auto) (0-0.5) % Neut % (Auto) (45.5-73.1) % Lymph % (Auto) (18.3-44.2) % [place] % (Auto) (2.6-8.5) % Eos % (Auto) (0-4.4) % Baso % (Auto) (0.2-1.2) % Lymph # (Auto) (0.9-3.2) K/mm3 [place] # (Auto) (0.1-0.6) K/mm3 Eos # (Auto) (0-0.3) K/mm3 Baso # (Auto) (0.0-0.1) K/mm3 Abs Immat Gran (auto) (0.00-0.031) K/mm3 Absolute Neuts (auto) (1.3-6.7) K/mm3 Absolute Nucleated RBC (0.0-0.012) K/mm3 Nucleated RBC % (0.0-0.2) % PT (11.1-14.7) Seconds INR APTT (22.3-36.8) Seconds Methemoglobin (0-1.5) %THb Sodium (137-145) mmol/L Potassium (3.4-5.0) mmol/L Chloride (98-107) mmol/L Carbon Dioxide (22-30) mmol/L Anion Gap (4-12) mmol/L BUN (9-20) mg/dL Creatinine (0.7-1.3) mg/dL Estim Creat Clear Calc Estimated GFR (59 - ) Glucose (65-110) mg/dL POC Capillary Glucose 292 H 292 H (65-105) mg/dl Calcium (8.4-10.2) mg/dL Phosphorus (2.5-4.5) mg/dL Magnesium (1.6-2.3) mg/dL Total Bilirubin (0.2-1.3) mg/dL AST (17-59) U/L ALT (6-50) U/L Alkaline Phosphatase (38-126) U/L Total Protein (6.3-8.2) g/dL Albumin (3.5-5.1) g/dL Beta-Hydroxybutyrate/Acetoacetate (0.02-0.27) mmol/L Urine Color Yellow (Yellow) Urine Appearance Clear (Clear) Urine pH 5.0 (5.0-9.0) Ur Specific [place] 1.038 H (1.001-1.035) Urine Protein 2+ H (Negative) mg/dL Urine Glucose (UA) 3+ H (Negative) mg/dL Urine Ketones Trace H (Negative) mg/dL Ur Blood (Man) 3+ H (Negative) Urine Nitrate Negative (Negative) Urine Bilirubin Negative (Negative) Urine Urobilinogen 0.2 (<2.0) mg/dL Add Ur Microanalysis Reviewed Leukocyte Esterase Rfl 1+ H (Negative) BENJAMIN/UL Urine RBC >100 H (0-2) /hpf Urine WBC >100 H (0-3) /hpf Ur Squamous Epith Cells Occasional (Few) /hpf Urine Bacteria None seen /hpf Urine Casts 3-5 Urine Mucus Present /lpf ABG Data ABG results: 03/20/25 17:15 Puncture Site Right radial ABG pH 7.397 ABG pCO2 42.2 ABG pO2 62.7 L ABG PO2/FiO2 Ratio 2.99 ABG HCO3 25.4 ABG O2 Saturation 92.0 L ABG O2 Content 14.5 L ABG Base Excess 0.4 A-a Gradient 36.5 Oxyhemoglobin 89.4 L Carboxyhemoglobin 0.9 Reduced Hemoglobin 9.6 H Total Hemoglobin 11.5 L O2 Delivery Device Room air O2 Liters/Min Not Reportable FiO2 21 Attestation: I personally reviewed and interpreted this ABG as follows: Imaging Data Attestation: I personally reviewed and interpreted this imaging study as follows: Radiologist's impression: STAT RAD Venous doppler LUE: Impression: No DVT or SVT identified. No visible hematoma or fluid collection. Patent dialysis fistula. No incidental findings. Discharge Plan Discharge Clinical Impression: Hyperglycemia due to type 1 diabetes mellitus, UTI (urinary tract infection) Patient Disposition: Home Condition: Stable Instructions: Antibiotic Form, Urinary Tract Infection in Men (ED), Managing Diabetes During Sick Days (ED), Diabetic Hyperglycemia (ED) Additional Instructions: Your workup here was reassuring. There is no evidence of DKA. Continue home medications as prescribed. Continue to monitor your blood sugar. Follow-up closely with your primary care doctor for further evaluation. Also recommend follow-up with your vascular surgeon for evaluation of your fistula. Call offices tomorrow to make appointment for further evaluation. Take antibiotics as prescribed for urinary tract infection. Return to the ED for new or worsening concerns, worsening pain/swelling/warmth to left arm, fevers, unable to keep down food or drink, persistently elevated blood sugars, or any other symptoms of concern. Patient Language: Romanian Prescriptions: New cephalexin 500 mg capsule 500 mg PO Q6H 7 Days Qty: 28 0RF No Action calcitriol 0.25 mcg Capsule 0.25 mcg PO QAM ergocalciferol (vitamin D2) [Vitamin D2] 50,000 unit Capsule 50,000 unit PO WEEKLY Rx Instructions: on mondays at 0900 nitroglycerin 0.4 mg Tablet, Sublingual 0.4 mg SUBLINGUAL Q5-15M PRN (Reason: Chest Pain) Patient Comments: pt states he needs his prescription renewed (DME) Omnipod 5 G6 Pods (Gen 5) Cartridge SUBCUT Qty: 45 2RF Rx Instructions: Change every 48 hours metoprolol tartrate 50 mg tablet 50 mg PO Q12H Patient Comments: patient states he takes 50mg BID (0900, 2100) not 100mg Daily insulin aspart U-100 [Novolog FlexPen U-100 Insulin] 100 unit/mL (3 mL) insulin pen 15 unit subcut TIDWMEAL Rx Instructions: Take 12 units premeal +SSI 150-170: 1 unit 171-190: 2 units 191-210: 3 units 210-230: 4 units 231-250: 5 units 251-270: 6 units 271-290: 7 units 291-310: 8 units 310-330: 9 units 331-350: 10 units 351-370: 11 units 371-390: 12 units 391-410: 13 units >411 14 units ezetimibe [Zetia] 10 mg Tablet 10 mg PO DAILY cetirizine [All Day Allergy (cetirizine)] 10 mg Tablet 10 mg PO DAILY atorvastatin 80 mg tablet 80 mg PO DAILY albuterol sulfate [ProAir HFA] 90 mcg/actuation HFA aerosol inhaler 1 inh inhalation QID PRN (Reason: shortness of breath or wheezing) Qty: 8.5 0RF febuxostat 40 mg tablet 40 mg PO QPM Linzess 72 mcg capsule 72 mcg PO DAILY PRN (Reason: Diarrhea) omeprazole 20 mg capsule,delayed release(DR/EC) 20 mg PO DAILY aspirin 81 mg capsule 81 mg PO DAILY colchicine 0.6 mg capsule 0.6 mg PO 3XW Rx Instructions: monday, monday, fridays gentamicin 0.1 % cream 1 applic topical HS tamsulosin 0.4 mg capsule 0.4 mg PO BID Patient Comments: 0900, 1700 pantoprazole 40 mg tablet,delayed release (DR/EC) 40 mg PO HS Qty: 14 0RF potassium chloride 20 mEq tablet extended release 20 meq PO DAILY torsemide 100 mg tablet 100 mg PO DAILY icosapent ethyl [Vascepa] 1 gram capsule 1 g PO QID amlodipine 10 mg tablet 10 mg PO HS Gvoke HypoPen 2-Pack 1 mg/0.2 mL auto-injector See Rx Instructions .ROUTE .COMPLEX PRN (Reason: Hypoglycemia) Rx Instructions: INJECT 1 MG(0.2 ML) UNDER THE SKIN ONCE A SINGLE DOSE, MAY REPEAT ONCE AFTER 15 MINUTES IF NO RESPONSE calcium acetate(phosphat bind) 667 mg capsule 667 mg PO QID cyclobenzaprine 10 mg tablet 5 - 10 mg PO TID PRN (Reason: muscle spasm) Qty: 10 0RF famotidine 40 mg tablet 40 mg PO HS lidocaine 5 % adhesive patch,medicated 1 patch transdermal Q24H Patient Comments: Back warfarin 5 mg tablet 3 mg PO DAILY Humulin N NPH Insulin KwikPen 100 unit/mL (3 mL) insulin pen 40 unit subcut DAILY Patient Comments: Patient states it is 40 not 30 Rx Instructions: take 30 units before peritoneal dialysis cefdinir 300 mg capsule 300 mg PO Q12H Qty: 20 0RF clindamycin HCl [Cleocin HCl] 150 mg capsule 150 mg PO Q6H 7 Days Qty: 28 0RF (DME) pen needle, diabetic [BD Lucrecia 2nd Gen Pen Needle] 32 gauge x 5/32 needle See Rx Instructions .ROUTE .COMPLEX Qty: 400 1RF Dose Instruction: TO ADMINISTER INSULIN DIRECTED Rx Instructions: TO ADMINISTER INSULIN 4 times daily levothyroxine 25 mcg tablet 25 mcg PO DAILY Qty: 90 1RF insulin glargine U-300 conc [Toujeo SoloStar U-300 Insulin] 300 unit/mL (1.5 mL) insulin pen 50 unit subcut DAILY 90 Days Qty: 18 2RF (DME) OneTouch Verio test strips Strip See Rx Instructions .Route Qty: 300 0RF Rx Instructions: test bs 3 times daily (DME) Dexcom G6 Sensor Device See Rx Instructions .Route Qty: 9 0RF Rx Instructions: change every 10 days (DME) Dexcom G6 Transmitter Device See Rx Instructions .Route Qty: 1 0RF Rx Instructions: change every 90 days Follow-up/Referrals: Matthew,MD Aditya [Primary Care Provider] - Time of Disposition: 22:24
[2025-03-20 17:22] LABS: Hematocrit 33.5 % (42.0-52.0); Hemoglobin 11.0 g/dL (14.0-18.0); Immature Granulocyte Percent A 0.5 % (0-0.5); Lymphocytes Absolute Auto 1.20 K/mm3 (0.9-3.2); Mean Corpuscular HGB Conc 32.8 g/dl (32-36); Mean Corpuscular Hemoglobin 29.5 pg (26-34); Mean Corpuscular Volume 89.8 fl (80-100); Nucleated Red Blood Cells Absolute Auto 0.000 K/mm3 (0.0-0.012); Nucleated Red Blood Cells Perc 0.0 % (0.0-0.2); Platelet Count Result 200 k/mm3 (150-375); Red Blood Count 3.73 M/mm3 (4.6-6.20); White Blood Count 4.3 K/mm3 (4.5-10.0)
[2025-03-20 17:24] LABS: Alveolar/Arterial O2 Gradient 36.5 mmHg; Carboxyhemoglobin 0.9 % THb (0-2.0); Fractional Inspired Oxygen 21 %; HCO3 ABG 25.4 mEq/l (22.0-26.0); Methemoglobin ABG 0.1 %THb (0-1.5); Modified Allen's Test Pass; Oxygen Content ABG 14.5 %vol (16.0-22.0); Oxygen Saturation ABG 92.0 % (95.0-100.0); PCO2 ABG 42.2 mmHg (35.0-45.0); PO2 ABG 62.7 mmHg (80.0-100.0); PO2 FiO2 Ratio Arterial Blood 2.99 %; Reduced Hemoglobin 9.6 %THb (0-5.0); Site Drawn RIGHT RADIAL
[2025-03-20 17:34] LABS: INR 3.5; Prothrombin Time 34.1 Seconds (11.1-14.7)
[2025-03-20 17:36] LABS: Alanine Aminotransferase 11 U/L (6-50); Albumin Level 3.4 g/dL (3.5-5.1); Alkaline Phosphatase 93 U/L (38-126); Anion Gap 12 mmol/L (4-12); Aspartate Amino Transferase 38 U/L (17-59); Bilirubin,Total 0.5 mg/dL (0.2-1.3); Blood Urea Nitrogen 42 mg/dL (9-20); Calcium 9.1 mg/dL (8.4-10.2); Carbon Dioxide 24 mmol/L (22-30); Chloride 88 mmol/L (98-107); Estimated Glomerular Filt Rate 5; Glucose 332 mg/dL (65-110); Magnesium 1.9 mg/dL (1.6-2.3); Partial Thromboplastin Time 71.6 Seconds (22.3-36.8); Potassium 4.3 mmol/L (3.4-5.0); Sodium 124 mmol/L (137-145); Total Protein 6.7 g/dL (6.3-8.2)
[2025-03-20 17:41] LABS: Beta-Hydroxybutyrate/Acetoacetate 0.11 mmol/L (0.02-0.27)
--- OUTSIDE RECORDS SUMMARY | 2025-03-20 17:47 | XMS_ITS | Clinical Summary ---
Author Organization [facility] Address [address], [place] [address] Phone Care Team Providers Care Fiber Designer Name Role Phone Unavailable Primary Care Provider Unavailabl e Allergies Active Allergy Reactions Criticality Noted Date Comments Ticagrelor 12/26/2018 Medications cloNIDine (CATAPRES) 0.1 MG tablet 1 tab 2 times daily 0 8 Active nitroglycerin (NITROSTAT) 0.4 MG SL tablet PRN as directed 0 8 Active clopidogrel (PLAVIX) 75 MG tablet 1 tab daily 0 8 Active Cholecalciferol (VITAMIN D3) 95817 units capsule 1 tab by mouth once [...] on file Legal Sex Male 9:05 AM [facility] Gender Identity Not on file Sexual [...]
--- OUTSIDE RECORDS SUMMARY | 2025-03-20 17:47 | XMS_ITS ---
Author Organization [facility] Address [address] [place] [address] Care Team Providers Care Fancy Packer Name Role Phone Aditya Castro MD Primary Care Provider [phone] Alondra Lambert RN Unavailable [phone] Shannon Brock MD, [place] P. Unavailable [phone] Leandro Reyes MD Unavailable [phone] Dialysis Access Sites Type Status Location Placement Date Removal Da te Peritoneal Dialysis Catheter Continuous cycling Active Hemodialysis Cath Double Inactive Right N emiliano (side) - Anterior 06/18/2022 06/25/2022 Hemodialysis Cath Triple Inactive Neck - Anterior 202106/16/2022 Procedures Procedure Name Priority Date/Time Associated Diagnosis Comments HEPATITIS C ANTIBODY Routine 07/29/2024 11:01 AM [facility] End stage renal disease (HCC) EGFR Routine 07/29/2024 11:01 AM [facility] End stage renal disease (HCC) HEMOGLOBIN A1C Routine 07/29/2024 11:01 AM [facility] End stage renal disease (HCC) LIPID PANEL Routine 07/29/2024 11:01 AM [facility] End stage renal disease (HCC) PSA SCREEN Routine 07/29/2024 11:01 AM [facility] End stage renal disease (HCC) TSH Routine 10/27/2023 2:30 AM [facility]EDIT PROFESSIONAL from Last 3 Months or Most Recently [...] PUMP: Continue Omnipod 5 insulin pump with [employer] G6 CGM at home settings: TIME [...] 1 tablet (25 mcg total) by mouth coin machine assembler before breakfast 30 tablet 1 11/04/19 24 [...] mg SL tablet 12/28/19 18 Active peg [id number]-pc ycerin (ARTIFICAL TEARS) 1-0.2-0.2 % ophthalmic solution 1 drop 4 (four) times a day 07/07/20 22 Active potassium chloride ER 20 mEq CR tablet Active Active Problems Problem Noted Date Diagnosed Date End stage renal disease 07/29/2024 Nonrheumatic aortic valve stenosis 11/22/2023 Status post aortic valve replacement 11/22/2023 Status post coronary artery bypass grafting 10/2023 CAD in [place] artery 10/13/2023 Anemia 06/22/2022 Assessment & Plan (06/29/2022 10:12 AM [facility]): Stable, likely 2/2 anemia from ESRD, no [...] 06/22/2022 Assessment & Plan (06/29/2022 10:12 AM CREDIT PROFESSIONAL): - Renal consulted, s/p CRRT in the ICU now back on PD. Tolerated well and nephrology following - Trialysis catheter removed - Continue vitamins for renal bone mineral disease. Assessment & Plan (06/28/2022 3:29 PM CREDIT PROFESSIONAL): - Renal consulted, s/p CRRT in the [...] 06/22/2022 Assessment & Plan (06/29/2022 10:12 AM CREDIT PROFESSIONAL): C/b cardiogenic shock requiring impella in the setting of cath and AHRF 2/2 pulmonary edema, now resolved. TTE demonstrating recovered EF 65% with grade I diastolic dysfunction. - metop as above - continue low dose losartan 12.5mg daily, ok per nephro. Tolerating well - volume management per PD Assessment & Plan (06/28/2022 3:29 PM CREDIT PROFESSIONAL): C/b cardiogenic shock requiring impella in the [...] 06/22/2022 Assessment & Plan (06/29/2022 10:12 AM CREDIT PROFESSIONAL): Converted to NSR overnight on 06/24. CHADsVASc of 4 not on anticoagulation prior to admission. - cardiology consulted - recommended ongoing rate control - holding off on a/c with high risk for bleeding while on DAPT - reduced metop to 25mg BID in the setting of hypotension, HR 70s NSR Assessment & Plan (06/28/2022 3:30 PM CREDIT PROFESSIONAL): Converted to NSR overnight on 06/24. CHADsVASc [...] 08/22/2021 Assessment & Plan (06/29/2022 10:11 AM CREDIT PROFESSIONAL): With recurrent chest pain post-cath. He has [...] today Assessment & Plan (06/28/2022 3:30 PM CREDIT PROFESSIONAL): With recurrent chest pain post-cath. He has [...] 06/22/2022 Assessment & Plan (06/29/2022 10:11 AM CREDIT PROFESSIONAL): Secondary to NSTEMI, s/p Impella since removed on 06/10. Resolved. Assessment & Plan (06/23/2022 4:55 PM CDT): Secondary to NSTEMI, s/p Impella since removed on 06/10. Resolved. Assessment & Plan (06/22/2022 8:22 PM CDT): -Secondary to NSTEMI, s/p Impella since removed on 06/10. 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 He uses [...] session Assessment & Plan (06/28/2022 3:28 PM CREDIT PROFESSIONAL): A1c well controlled on admission. He uses [...] from doctor or pharmacy Never 12/01/2023 [facility] Utilities Answer Date Recorded [...] week 08/01/2024 How often do you attend confucianist or sikh serv ices? Never 08/01/2024 Do you belong [...] in the past 12 m [facility], were you homeless or living in [...] file Legal Sex Male 3:42 AM [facility]EDIT PROFESSIONAL Gender Identity Not on file Sexual Orientation Not on file Last Filed Vital Signs Vital Sign Reading Time Taken Comments Blood Pressure 122/75 07/29/2024 1:00 PM [facility] Pulse 116 07/29/2024 1:00 PM [facility] Temperature 36.8 C (98.2 F) 07/29/2024 1:00 PM [facility] Respiratory Rate 16 12/01/2023 11:1 3 AM CDT Oxygen Saturation 96% 12/01/2023 11: 13 AM CDT Inhaled Oxygen Concentration - - Weight 121.2 kg (267 lb 1.6 oz) 07/29/2024 1:00 PM [facility] Height 177.8 cm (5' 10) 07/29/2024 1:00 PM [facility]AL Body Mass Index 38.32 07/29/2024 1:00 PM [facility] Results * (ABNORMAL) eGFR (07/29/2024 11:01 AM CREDIT PROFESSIONAL) eGFR 7(L) >=60 mL/min/1. 73 m2 Comment: [...] reviewed 2021. Blood 07/29/2024 11:0 1 AM [facility]EDIT [facility]ESSIONAL 07/29/2024 11:33 AM [facility]EDIT [facility]ESSIONAL Jossie King MD LAB BLOOD ORDERABL ES Final Result [facility] Department [place] [address] * PSA screen (07/29/2024 11:01 AM CREDIT PROFESSIONAL) PSA-Total 0.55 <=3.90 ng/mL Comment: Interpretive Data [...] revised 21. Blood 07/29/2024 11:0 1 AM [facility] 07/29/2024 11:33 AM [facility] Narrative [facility] - 07/29/2024 12:39 PM CREDIT PROFESSIONAL This lab is being obtained as part of a Kidney transplant evaluation, is time sensitive, and should only be drawn during the evaluation visit at [address] Jossie King MD LAB BLOOD ORDERABL ES Final Result Performing Organization Address [facility] Co de Phone Number [facility] [place] [place] [address] * Hepatitis C antibody Blood (07/29/2024 11:01 AM CREDIT PROFESSIONAL) [facility] Hep C Ab Nonreactive Nonreactive Comment:Antibodies to HCV no t detected. Does NOT exclude the possibility of recent exposure to HCV. Current interpretive data was last revised on 22 Blood 07/29/2024 11:0 1 AM [facility]ESSIONAL 07/29/2024 11:32 AM [facility]AL Narrative [facility] - 07/29/2024 12:47 PM [facility]AL This lab is being obtained as part of a Kidney transplant evaluation, is time sensitive, and should only be drawn during the evaluation visit at [address] Jossie King MD LAB MICROBIOLOGY - GENERAL ORDERABLES Final Result Performing Organization Address City/[facility]/ZIP Co de Phone Number [facility] [place] [address] * (ABNORMAL) Hemoglobin A1c (07/29/2024 11:01 AM CREDIT PROFESSIONAL) [facility] Hgb A1C 9.0(H) 4.0 - 5.6 % [...] fasting glucose. Blood 07/29/2024 11:0 1 AM CREDIT PROFESSIONAL 07/29/2024 11:34 AM CREDIT PROFESSIONAL Narrative [facility] - 07/29/2024 11:53 AM CREDIT PROFESSIONAL This lab is being obtained as part of a Kidney transplant evaluation, is time sensitive, and should only be drawn during the evaluation visit at [facility] Jossie King MD LAB BLOOD ORDERABL ES Final Result [facility] Department [place] [address] * (ABNORMAL) Lipid panel (07/29/2024 11:01 AM CREDIT PROFESSIONAL) Cholesterol 114 30 - 199 mg/dL Comment: [...] 2018. HDL 29(L) >=40 mg/dL [facility] Comment: Interpretive Data Ages < or [...] LDL, calculated 71 <=129 mg/dL [facility] Comment: Interpretive Data Ages < or [...] 2024. Non-HDL Cholesterol 85 mg/dL [facility] Comment: Interpretive Data Ages < or [...] last revised on 2018. Chol/HDL ratio 4 [facility] Blood 07/29/2024 11:0 1 AM CREDIT PROFESSIONAL 07/29/2024 11:33 AM [facility]AL Narrative [facility] - 07/29/2024 12:10 PM CREDIT PROFESSIONAL This lab is being obtained as part of a Kidney transplant evaluation, is time sensitive, and should only be drawn during the evaluation visit at [facility] us Jossie King MD LAB BLOOD ORDERABL ES Final Result [facility] [place] [address] * (ABNORMAL) TSH (10/27/2023 2:30 AM CREDIT PROFESSIONAL) Pathologist [facility] Thyroid Stimulating Hormone 13.20(H) 0.30 - 4.20 mcIUnit/mL Blood 10/27/2023 2:30 AM CREDIT PROFESSIONAL 10/27/2023 2:42 AM CREDIT PROFESSIONAL us Lorne Mcnulty MD LAB BLOOD ORDERABLES Final Result [facility] [address] [place] [address] from Last 3 Months or Most Recently Relevant to Health Maintenance
--- OUTSIDE RECORDS SUMMARY | 2025-03-20 17:47 | XMS_ITS | Encounter Summary ---
Author Organization [facility] Address [address], [place] [address] Phone Care Team Providers Care Yoke Setter Name Role Phone Unavailable Primary Care Provider Unavailabl e Reason for Visit * Reason Comments Med Refill Encounter Details Date Type Department Care Team (Late st Contact Info) Description 02/13/2019 Refill [facility] [address] [address] Leandro Reyes MD [address] [address] Social History Tobacco Use Types Packs/Day Years [...]
--- OUTSIDE RECORDS SUMMARY | 2025-03-20 17:47 | XMS_ITS | Encounter Summary ---
Author Organization [facility] Address [address] [place] [phone] Phone Care Team Providers Care Marine Engineer Name Role Phone Unavailable Primary Care Provider Unavailabl e Reason for Visit * Reason Comments Med Refill Encounter Details Date Type Department Care Team (Late st Contact Info) Description 01/25/2019 Refill [facility] [address] [facility] [address] [place] [address] Leandro Reyes MD [address] [facility] [address] [place] [address] Social History Tobacco Use Types [...]
--- OUTSIDE RECORDS SUMMARY | 2025-03-20 17:47 | XMS_ITS | Encounter Summary ---
Author Organization [facility] Address [address], [place] [address] Phone Care Team Providers Care Area Safety Manager Name Role Phone Unavailable Primary Care Provider Unavailabl e Reason for Visit * Reason Comments Med Refill Encounter Details Date Type Department Care Team (Late st Contact Info) Description 10/08/2019 Refill [facility] [address] [address] Leandro Reyes MD [address] [address] Social History Tobacco Use Types Packs/Day Years [...]
--- OUTSIDE RECORDS SUMMARY | 2025-03-20 17:47 | XMS_ITS | Clinical Summary ---
Author Organization [facility] Address [address] [place] [address] Care Team Providers Care Plasma Cutting Machine Operator Name Role Phone Aditya Castro MD Primary Care Provider [phone] Alondra Lambert RN Unavailable [phone] Shannon Brock MD, Hamlet P. Unavailable [phone] Leandro Reyes MD Unavailable [phone] Allergies Active Allergy Reactions Criticality Noted Date [...] PUMP: Continue Omnipod 5 insulin pump with [employer] G6 CGM at home settings: TIME BASAL [...] 1 tablet (25 mcg total) by mouth exercise physiologist certified before breakfast 30 tablet 1 11/04/19 24 [...] mg SL tablet 12/28/19 18 Active peg 036-xovddsqonjta-zc ycerin (ARTIFICAL TEARS) 1-0.2-0.2 % ophthalmic solution 1 drop 4 (four) times a day 07/07/20 22 Active potassium chloride ER 20 mEq CR tablet Active Active Problems Problem Noted Date Diagnosed Date End stage renal disease 07/29/2024 Nonrheumatic aortic valve stenosis 11/22/2023 Status post aortic valve replacement 11/22/2023 Status post coronary artery bypass grafting 10/2023 CAD in match-e-be-n[place]ish band artery 10/13/2023 Anemia 06/22/2022 Assessment & Plan (06/29/2022 10:12 AM SECOND OPERATOR): Stable, likely 2/2 anemia from ESRD, [...] 06/22/2022 Assessment & Plan (06/29/2022 10:12 AM SECOND OPERATOR): - Renal consulted, s/p CRRT in the ICU now back on PD. Tolerated well and nephrology following - Trialysis catheter removed - Continue vitamins for renal bone mineral disease. Assessment & Plan (06/28/2022 3:29 PM SECOND OPERATOR): - Renal consulted, s/p CRRT in [...] 06/22/2022 Assessment & Plan (06/29/2022 10:12 AM SECOND OPERATOR): C/b cardiogenic shock requiring impella in the setting of cath and AHRF 2/2 pulmonary edema, now resolved. TTE demonstrating recovered EF 65% with grade I diastolic dysfunction. - metop as above - continue low dose losartan 12.5mg daily, ok per nephro. Tolerating well - volume management per PD Assessment & Plan (06/28/2022 3:29 PM SECOND OPERATOR): C/b cardiogenic shock requiring impella in [...] 06/22/2022 Assessment & Plan (06/29/2022 10:12 AM SECOND OPERATOR): Converted to NSR overnight on 06/24. CHADsVASc of 4 not on anticoagulation prior to admission. - cardiology consulted - recommended ongoing rate control - holding off on a/c with high risk for bleeding while on DAPT - reduced metop to 25mg BID in the setting of hypotension, HR 70s NSR Assessment & Plan (06/28/2022 3:30 PM SECOND OPERATOR): Converted to NSR overnight on 06/24. [...] 08/22/2021 Assessment & Plan (06/29/2022 10:11 AM SECOND OPERATOR): With recurrent chest pain post-cath. He [...] today Assessment & Plan (06/28/2022 3:30 PM SECOND OPERATOR): With recurrent chest pain post-cath. He [...] 06/22/2022 Assessment & Plan (06/29/2022 10:11 AM SECOND OPERATOR): Secondary to NSTEMI, s/p Impella since removed on 06/10. Resolved. Assessment & Plan (06/23/2022 4:55 PM CDT): Secondary to NSTEMI, s/p Impella since removed on 06/10. Resolved. Assessment & Plan (06/22/2022 8:22 PM CDT): -Secondary to NSTEMI, s/p Impella since removed on 06/10. 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 He [...] session Assessment & Plan (06/28/2022 3:28 PM SECOND OPERATOR): A1c well controlled on admission. He [...] Type Department Care Team Description 02/20/2025 Telephone [facility] Transplant Kidney [address] [facility] [id number] [place] [address] Alondra Lambert, LUAN 02/20/2025 Telephone [facility] Transplant Kidney [address] [facility] [id number] [place] [address] Alondra Lambert, LUAN 02/13/2025 Telephone Cardiovascular and Thoracic Surgery [address] [facility] [address] [place] [address] Lorne Mcnulty MD Med Refill [...] materials from doctor or pharmacy Never 12/01/2023 [facility] Utilities Answer Date Recorded In the past 12 months has e [employer], oil, or water [employer] threatened to shut off services in your home? No 08/01/2024 Social Connection and Isolation Panel [NHANES] A nswer Date Recorded In a typical week, how many times do you talk on the phone with family, friends, or neighbors? Twice a week 08/01/2024 How often do you get together with friends or re latives? Once a week 08/01/2024 How often do you attend restorationism or mandaeism serv ices? Never 08/01/2024 Do [...] on file Legal Sex Male 3:42 AM SECOND OPERATOR Gender Identity Not on file Sexual Orientation Not on file Obstetrics History Last Filed Vital Signs Vital Sign Reading Time Taken Comments Blood Pressure 122/75 07/29/2024 1:00 PM SECOND OPERATOR Pulse 116 07/29/2024 1:00 PM SECOND OPERATOR Temperature 36.8 C (98.2 F) 07/29/2024 1:00 PM SECOND OPERATOR Respiratory Rate 16 12/01/2023 11:1 3 AM CDT Oxygen Saturation 96% 12/01/2023 11: 13 AM CDT Inhaled Oxygen Concentration - - Weight 121.2 kg (267 lb 1.6 oz) 07/29/2024 1:00 PM SECOND OPERATOR Height 177.8 cm (5' 10) 07/29/2024 1:00 PM SECOND OPERATOR Body Mass Index 38.32 07/29/2024 1:00 PM SECOND OPERATOR Plan of Treatment Health Maintenance Due [...] 03/23/2017, 03/26/2015 Medical Devices Implanted Type Area Radio Aerial Installer Device Identifier Shelf Expiration Date Model / Serial / Lot Kyle Vascular Device Clsr Perclose Prostyle Sut-Mediatd Closure-Repair Sys 99886-17 - [id number] Implanted:Qty: 1 on 06/10/2022 by Champ Osborne MD PhD at [facility] Other - see comments Right: Femoral [employer] 01/19/2024 [id number] / / [id number] [employer] [place] [employer] Mary Synergy Xd Monorail 2.5mm 48mm 144cm Delivery System 1 Access [id number] - [id number] Implanted:Qty: 1 on 06/07/2022 by Champ Osborne MD PhD at [facility] Stent [employer] [place] [employer] Mary 10/27/2023 [id number] / / [id number] [place] [employer] Mary Synergy Xd Monorail 3mm 24mm 144cm Delivery System 1 Access Port [id number] - [id number] Implanted:Qty: 1 on 06/07/2022 by Champ Osborne MD PhD at [facility] Stent [place] [employer] Mary 07/28/2023 [id number] / / [id number] [place] [employer] Mary Synergy Xd Monorail 2.5mm 12mm 144cm Delivery System 1 Access [id number] - [id number] - [id number] Implanted:Qty: 1 on 06/07/2022 by Champ Osborne MD PhD at [facility] Stent [place] [employer] Mary 05/03/2023 [id number] / [id number] / [id number] [facility] Mary [id number] Device Closure Angio-Seal Vip Bon[place]k-Plus Polyglyd L70 Cm Od6 Fr Odsec.035 In Vascular - [id number] Implanted:Qty: 1 on 01/21/2021 by Hamlet Ortega Jr., MD at [facility] Left: Groin [employer] Mary [id number] / / Kyle Vascular Device Clsr Perclose Prostyle Sut-Mediatd Closure-Repair Sys 34458-41 - [id number] Implanted:Qty: 1 on 06/07/2022 by Champ Osborne MD PhD at [facility] Kyle [employer] 01/19/2024 [id number] / / [id number] [employer] Device Clsr Perclose Prostyle Sut-Mediatd Closure-Repair Sys 97789-35 - [id number] Implanted:Qty: 1 on 06/07/2022 by Champ Osborne MD PhD at [facility] Kyle Vascular 11/19/2023 [id number] / [id number] [employer] Access [employer] Power-Trialysis 13fr 30cm 3 Lumen Kink Resistance Symmetric Tip [id number] - [id number] Implanted:Qty: 1 on 06/07/2022 by Champ Osborne MD PhD at [facility] Right: Jugular Ramirez Chapito 07/20/2024 [id number] / / [id number] [employer] Impella Cp Percutaneous Left Ventricular Assist Device 7046-4873 - [id number] Implanted:Qty: 1 on 06/07/2022 by Champ Osborne MD PhD at [facility] Left: Ventricle [employer] [id number] / / Bard Access Systems Power-Trialysis 13fr 20cm 3 Lumen Short Term Dialysis Straight [id number] - [id number] Implanted:Qty: 1 on 06/18/2022 at [facility] Ramirez Coke 07/20/2024 [id number] / / [id number] [employer] Screw Bone Slf Drl Full Thread Locking 3.5x14mm Ti 100.035.14 - [id number] Implanted:Qty: 6 on 10/17/2023 by Lorne Mcnulty MD at [facility] N/A: Sternum [employer] 100.035.1 4 / / [employer]l [employer] Plate Bone Low Profile 6 Hole H Shape Sternum Ti 115.102.06 - [id number] Implanted:Qty: 2 on 10/17/2023 by Lorne Mcnulty MD at [facility] N/A: Sternum [employer] 115.102.0 6 / / Rl [employer] Plate Bone Low Profile 6 Hole O Shape Sternum Ti 115.104.06 - [id number] Implanted:Qty: 1 on 10/17/2023 by Lorne Mcnulty MD at [facility] N/A: Sternum [employer] 115.104.0 6 / / On-X Intrnl Valve Coronary Aortic Mechanical On X 25mm Onxane-25 - [id number] - [id number] Implanted:Qty: 1 on 10/17/2023 by Lorne Mcnulty MD at [facility] N/A: Heart On-X Intrnl 01/22/2028 ONXANE-25 / [id number] / Rl [employer] Screw Bone Slf Drl Full Thread Locking 3.5x18mm Ti 100.035.18 - [id number] Implanted:Qty: 12 on 10/17/2023 by Lorne Mcnulty MD at [facility] N/A: Sternum [employer] 100.035.1 8 / / Explanted Type Area Radio Aerial Installer Device Identifier Shelf Expiration Date Model / Serial / Lot Bard Peripheral Vascular Bard .25x.25in [place] Thk1.65mm Square [place] Cardiovascular Ptfe [id number] - [id number] Explanted:Qty: 1 on 10/17/2023 by Lorne Mcnulty MD at [facility] N/A: Heart Bard Peripheral Vascular 05/18/2026 [id number] / / Procedures Procedure Name Priority Date/Time Associated Diagnosis Comments HEPATITIS C ANTIBODY Routine 07/29/2024 11:01 AM SECOND OPERATOR End stage renal disease (HCC) EGFR Routine 07/29/2024 11:01 AM SECOND OPERATOR End stage renal disease (HCC) HEMOGLOBIN A1C Routine 07/29/2024 11:01 AM SECOND OPERATOR End stage renal disease (HCC) LIPID PANEL Routine 07/29/2024 11:01 AM SECOND OPERATOR End stage renal disease (HCC) PSA SCREEN Routine 07/29/2024 11:01 AM SECOND OPERATOR End stage renal disease (HCC) TSH Routine 10/27/2023 2:30 AM SECOND OPERATOR from Last 3 Months or Most Recently Relevant to Health Maintenance Results * (ABNORMAL) eGFR (07/29/2024 11:01 AM SECOND OPERATOR) eGFR 7(L) >=60 mL/min/1. 73 m2 [...] reviewed 2021. Blood 07/29/2024 11:0 1 AM SECOND OPERATOR 07/29/2024 11:33 AM SECOND OPERATOR us Jossie King MD LAB BLOOD ORDERABL ES Final Result [facility] [address] [facility] [place] [address] * PSA screen (07/29/2024 11:01 AM SECOND OPERATOR) PSA-Total 0.55 <=3.90 ng/mL Comment: Interpretive [...] revised 21. Blood 07/29/2024 11:0 1 AM SECOND OPERATOR 07/29/2024 11:33 AM SECOND OPERATOR Narrative [facility] - 07/29/2024 12:39 PM SECOND OPERATOR This lab is being obtained as part of a Kidney transplant evaluation, is time sensitive, and should only be drawn during the evaluation visit at [address] Lab[address] Jossie King MD LAB BLOOD ORDERABL ES Final Result Performing Organization Address [facility] de Phone Number [facility] [place] [address] * Hepatitis C antibody Blood (07/29/2024 11:01 AM SECOND OPERATOR) Pathologist [facility] Hep C Ab Nonreactive Nonreactive Comment:Antibodies to HCV no t detected. Does NOT exclude the possibility of recent exposure to HCV. Current interpretive data was last revised on 22 Blood 07/29/2024 11:0 1 AM SECOND OPERATOR 07/29/2024 11:32 AM SECOND OPERATOR Narrative [facility] - 07/29/2024 12:47 PM SECOND OPERATOR This lab is being obtained as part of a Kidney transplant evaluation, is time sensitive, and should only be drawn during the evaluation visit at [address] Jossie King MD LAB MICROBIOLOGY - GENERAL ORDERABLES Final Result Performing Organization Address [facility] de Phone Number [facility] [place] [address] * (ABNORMAL) Hemoglobin A1c (07/29/2024 11:01 AM SECOND OPERATOR) Pathologist [facility] Hgb A1C 9.0(H) 4.0 [...] fasting glucose. Blood 07/29/2024 11:0 1 AM SECOND OPERATOR 07/29/2024 11:34 AM SECOND OPERATOR Narrative [facility] - 07/29/2024 11:53 AM SECOND OPERATOR This lab is being obtained as part of a Kidney transplant evaluation, is time sensitive, and should only be drawn during the evaluation visit at [facility] Lab. Jossie King MD LAB BLOOD ORDERABL ES Final Result [facility] [address] [facility] [place] [address] * (ABNORMAL) Lipid panel (07/29/2024 11:01 AM SECOND OPERATOR) Cholesterol 114 30 - 199 mg/dL [...] GENERAL HOSPITAL Blood 07/29/2024 11:0 1 AM SECOND OPERATOR 07/29/2024 11:33 AM SECOND OPERATOR Narrative [facility] - 07/29/2024 12:10 PM SECOND OPERATOR This lab is being obtained as part of a Kidney transplant evaluation, is time sensitive, and should only be drawn during the evaluation visit at [facility] Lab. Jossie King MD LAB BLOOD ORDERABL ES Final Result [facility] [place] [address] * (ABNORMAL) TSH (10/27/2023 2:30 AM SECOND OPERATOR) [facility] Thyroid Stimulating Hormone 13.20(H) 0.30 - 4.20 mcIUnit/mL Blood 10/27/2023 2:30 AM SECOND OPERATOR 10/27/2023 2:42 AM SECOND OPERATOR Lorne Mcnulty MD LAB BLOOD ORDERABLES Final Result [facility] [address] [place] [address] from Last 3 Months or Most Recently Relevant to Health Maintenance Insurance [facility] MEDICARE ADVANTAGE [facility]PA [facility] MEDICARE ADVANTAGE TRANSPLANT [employer] MEDICARE RISK IDPA TRANSPLANT [employer] MEDICARE [place] [address] ID[employer] Advance Directives For more information, please contact: [phone] * Full Code (Latest Code Status on File) Date Activated Date Inactivated Comments 10/13/2023 11:32 PM 11/03/2023 11:42 PM * Full Code Date Activated Date Inactivated Comments 06/05/2022 6:17 AM 06/29/2022 6:20 PM * Full Code Date Activated Date Inactivated Comments 06/05/2022 4:43 AM 06/05/2022 4:43 AM * Full Code Date Activated Date Inactivated Comments 06/04/2022 9:55 PM 06/05/2022 4:43 AM Care Teams Plasma Cutting Machine Operator Relationship Specialty Start Date End Date Aditya Castro MD [address] [facility] [place] [place] [address] PCP - General 10/17/19 Alondra Lambert, RN [address] [address] Mobile Paramedical Examiner 03/06/24 Hamlet Ortega Jr., MD [address] [place] [address] Consulting Physician Cardiovascular Disease 05/10/24 Leandro Reyes MD [address] [facility] [address] [place] [address] Consulting Physician Nephrology 07/30/24
--- OUTSIDE RECORDS SUMMARY | 2025-03-20 17:47 | XMS_ITS | Encounter Summary ---
Author Organization [facility] Address [address], [place] [address] Phone Care Team Providers Care Lacquer Shader Name Role Phone Unavailable Primary Care Provider Unavailabl e Reason for Visit * Reason Comments Med Refill Encounter Details Date Type Department Care Team (Late st Contact Info) Description 02/24/2020 Refill [facility] [address] [address] Leandro Reyes MD [address] [address] Social History Tobacco Use Types Packs/Day Years [...]
--- OUTSIDE RECORDS SUMMARY | 2025-03-20 17:47 | XMS_ITS | Clinical Summary ---
Author Organization [facility] Address [address] [place] [address] Care Team Providers Care Collections Officer Name Role Phone Aditya Castro MD Primary Care Provider [phone] Allergies Active Allergy Reactions Criticality Noted Date Comments Allopurinol Shortness of Breath/Wheezing,Othe r (See Comments) High 07/31/2019 Shuts my kidneys down per patient. Chlorhexidine Other (See Comments) High 06/29/2022 Skin peels all over and becomes tender Iodinated Contrast Media Rash High 07/10/2017 Ticagrelor Rash High 05/04/2017 Medications isosorbide mononitrate (IMDUR) 30 mg Extended Release 24 hour tablet Take 30 mg by mouth daily admittance attendant. Active clopidogrel (PLAVIX) 75 mg Tablet Take [...] Take 50,000 Units by mouth. Active Insulin [place], Disposable, (TRUEPLUS PEN NEEDLE) 31 gauge x [...] (06/29/2022): Added automatically from request for surgery [id number] Right upper quadrant pain 09/24/2020 Pre-transplant evaluation for kidney transplant 03/24/2020 Overview (06/29/2022): Images from the original note were not included. Juvenal Daigle 1970 Referring Contracts Officer: Leandro Reyes Dialysis Info: Type: PD Time: 160 days (11/05/2019) Blood Type: A Body mass index is 37.8 kg/m . ALERTS Tax Manager Public: Vashti Lizama NP Past Medical History: Diagnosis Date Anemia Arthritis Arthropathy osteo. back and knees see Dr. Norton CAD (coronary artery disease) Community acquired pneumonia 2017 [facility] hospitalized with double pneumonia Congestive heart failure Coronary artery disease Diabetes mellitus type 1 teens dx when he was 13. Insulin since he was dx. Insulin pump currently with dexacom. Vashti Lizama NP is fleet operations manager. DM (diabetes mellitus) TYPE 1 DVT (deep venous thrombosis) 2017 [facility]. ESRD on peritoneal dialysis Gout History of blood transfusion 2017 during admission for OR HLD (hyperlipidemia) HTN (hypertension) Hypercholesteremia 5 years on med Hypertension 30's on medications. Kidney disease Myocardial infarction 2017 [facility]. Stent x1 placed. Neuropathy feet Obstructive [...] 07/02/2020: Committee Discussion Details: Pt brought to [facility] to discuss his cardiac workup. Team [...] Impression: It is the impression of this administrator social welfare that Juvenal Daigle has several positive factors [...] advised of safety concerns regarding immunosuppressants. Plan: asphalt plant worker to provide supportive services as needed. Patient appears to be a reasonable candidate for transplant from a psychosocial perspective. -Post transplant arrangement forms are needed prior to being listed. Psychiatric Consult Recommended: No Transplant Authors Motivational: Radha Roper LCSW RD:05/14/2020 BMI= 40.0, Class [...] 177.8 cm (5' 10) 06/29/2022 6:00 PM CARROT GRADER INSPECTOR Body Mass Index 37.74 06/29/2022 6:00 PM CARROT GRADER INSPECTOR Plan of Treatment Health Maintenance Due Date [...] Tdap) 10/21/2029 10/22/2019 Insurance [facility] Address: [facility] [id number] [place] [address] Advance Directives For more information, please contact: [phone] * Full Code (Latest Code Status on File) Date Activated Date Inactivated Comments 06/29/2022 2:49 PM 07/08/2022 4:30 PM Care Teams Collections Officer Relationship Specialty Start Date End Date Aditya Castro MD PCP - General Student in an Organized Health Care Education/Training Program 09/11/18
--- OUTSIDE RECORDS SUMMARY | 2025-03-20 17:47 | XMS_ITS ---
Author Organization [facility] Address [address] [place] [address] Care Team Providers Care Facilities Clerk Name Role Phone Aditya Castro MD Primary Care Provider [phone] Alondra Lambert RN Unavailable [phone] Shannon Brock MD, Hamlet P. Unavailable [phone] Leandro Reyes MD Unavailable [phone] Transplant Episode Kidney Candidate [facility] ([place], [place]) [facility] Evaluation began on 05/10/2024 Marked as Active on 05/10/2024 Reason: Evaluation - Standard Kidney CoordinatorAlondra Lambert RN Fax: N/A Email: N/A Scores Score Value Updated Exceptions/Reas ons CPRA Not available EPTS (Calc) 80 03/20/2025 Care Team Name Role Phone Fax Email Alondra Lambert RN Kidney Coordinator [phone] N/A N/A Melany Kelly Primary Gauge Controller N/A N/A N/A Chris Richard Accounts Payable Analyst N/A N/A N/A Events Pre-Transplant Referred: 03/06/2024 Evaluation began: 05/10/2024 Dialysis History Dialysis History Start End Type Comments Center 10/16/2019 Peritoneal [facility] Dialysis [facility] Information Center Phone Fax Address [facility] [phone] [address] [facility] [address] [facility] [address]
--- OUTSIDE RECORDS SUMMARY | 2025-03-20 17:47 | XMS_ITS | Clinical Summary ---
Author Organization [facility] Address [address] [place] [address] Care Team Providers Care Extension Worker Name Role Phone Aditya Castro Primary Care Provider Unavailab le Source Comments [facility],non-owned Affiliates and Associated Physician Practices is amultiple site organization consisting of ambulatory clinics and hospital sitesin [place], [place], [place] and [place]. This disclosure is being madepursuant to the Care Everywhere program and may not contain all information available regarding this patient. Last updated 18.[facility] Allergies Active Allergy Reactions Criticality Noted Date [...] 9 Active vitamin D, ergocalciferol , (DRISDOL) 37995 units capsule Take 1 (one) capsule by [...] mouth 2 times daily Active HYDROcodone-ac etaminophen ([place]) 7.5-325 MG tabletIndicati ons:ESRD (end stage renal disease) (HCC) Take 1 (one) tablet by mouth every 6 hours as needed for Pain 30 tablet 5 Active Active Problems Problem Noted Date Diagnosed Date Pre-transplant evaluation for kidney transplant 03/24/2020 Overview (07/15/2020): Images from the original note were not included. Juvenal Garvin 1970 Referring Site Director: Leandro Reyes Dialysis Info: Type: PD Time: 160 days (11/05/2019) Blood Type: A Body mass index is 37.8 kg/m . ALERTS Retail Advertising Sales Manager: Vashti Lizama NP Past Medical History: Diagnosis Date Anemia Arthritis Arthropathy osteo. back and knees see Dr. Norton CAD (coronary artery disease) Community acquired pneumonia 2017 [facility] hospitalized with double pneumonia Congestive heart failure Coronary artery disease Diabetes mellitus type 1 teens dx when he was 13. Insulin since he was dx. Insulin pump currently with dexacom. 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 DM (diabetes mellitus) TYPE 1 DVT (deep venous thrombosis) 2017 [facility]. ESRD on peritoneal dialysis Gout History of blood transfusion 2017 during admission for [place] HLD (hyperlipidemia) HTN (hypertension) Hypercholesteremia 5 years on med Hypertension 30's on medications. Kidney disease Myocardial infarction 2017 [facility] Stent x1 placed. Neuropathy feet Obstructive [...] 07/02/2020: Committee Discussion Details: Pt brought to [facility] to discuss his cardiac workup. [...] advised of safety concerns regarding immunosuppressants. 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 Patient appears to be a reasonable candidate for transplant from a psychosocial perspective. -Post transplant arrangement forms are needed prior to being listed. Psychiatric Consult Recommended: No Transplant Smoking Tobacco Packing Machine Hand: Radha Roper LCSW RD:05/14/2020 BMI= 40.0, Class [...] Description 03/17/2025 7:33 AM CDT Anesthesia Event [facility] - Perioperative Surgery [address] [place] [address] Kaushik Flynn MD 03/17/2025 7:20 AM CDT - 03/17/2025 8:43 AM CDT Surgery [facility] Perioperative Surgery [address] [place] [address] Abelardo Meyers MD LEFT UPPER ARM ARTERIOVENOUS FISTULA 03/17/2025 5:43 AM CDT - 03/17/2025 11:34 AM CDT Hospital Encounter [facility] Perioperative Surgery [address] [place] [address] [id number] Abelardo Meyers MD Surgery General Discharge Disposition: Home or Self Care 03/17/2025 Travel 03/13/2025 Travel 02/03/2025 2:20 PM CDT Office Visit [facility] - Surgery [address] [place] [address], [address] [place] [id number] Abelardo Meyers MD Encounter regarding vascular access for dialysis for end-stage renal disease (HCC) (Primary Dx) 02/03/2025 2:08 PM CDT - 02/03/2025 11:59 PM CDT Hospital Encounter [facility] [address] [place] [address], [address] [place], [place] [id number] Abelardo Meyers MD Discharge Disposition: Home or Self Care 02/03/2025 Travel 01/30/2025 Orders Only 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 Gender Identity Not on file Sexual Orientation [...] Description 03/31/2025 10:20 AM CDT Office Visit [facility] - Surgery [address] [facility] [place] [phone] [place] [address] [address] Health Maintenance Due Date Last [...] Procedure Name Priority Date/Time Associated Diagnosis Comments MD ANASTOMOSIS,AV,ANY SITE 03/17/2025 7:25 AM CDT PT-INR [...] - 14.8 sec 03/17/2025 7:34 AM CDT [facility] INR 2.7(H) 0.9 - 1.1 03/17/2025 7:34 AM CDT [facility] Blood BLOOD SPECIMEN / Unknown Venipuncture / Unknown 03/17/2025 6:44 AM CDT 03/17/2025 6:51 AM CDT Narrative [facility] - 03/17/2025 7:34 AM CDT Conventional Warfarin Anticoagulant Therapy: INR Reference Range: 2.0-3.0 Intensive Warfarin Anticoagulant Therapy: INR Reference Range: 2.5-3.5 Kristi Aggarwal DO LAB - COAGULATION ORDERABLES Fi nal Result Performing Organization Address City/State/[facility] Co de Phone Number [facility] [address] [place] [address] * (ABNORMAL) BASIC METABOLIC PANEL (CALCIUM TOTAL) (03/17/2025 6:16 AM CDT) Glucose 184(H) 70 - 99 mg/dL 03/17/2025 6:57 AM CDT [facility] Sodium 132(L) 136 - 145 mmol/L 03/17/2025 6:57 AM CDT [facility] Potassium 4.8 3.5 - 5.1 mmol/L 03/17/2025 6:57 AM CDT [facility] Chloride 94(L) 98 - 107 mmol/L 03/17/2025 6:57 AM CDT [facility] CO2 23 22 - 29 mmol/L 03/17/2025 6:57 AM CDT [facility] Calcium 9.2 8.4 - 10.4 mg/dL 03/17/2025 6:57 AM CDT [facility] Anion Gap 15 6 - 16 mmol/L 03/17/2025 6:57 AM CDT [facility] BUN 44(H) 7 - 26 mg/dL 03/17/2025 6:57 AM CDT [facility] Creatinine 9.63(H) 0.72 - 1.25 mg/dL 03/17/2025 6:57 AM CDT [facility] eGFR by CKD-EPI 6(L) >=90 mL/min/1.7 3 m2 03/17/2025 6:57 AM CDT [facility] Comment:Estimated Glomerular Filtration Rate (eGFR) calculated using the CKD-EPI Creatinine Equation (2020), per the National Kidney Foundation and [place] Society of Nephrology recommendations. Blood BLOOD SPECIMEN / Unknown Venipuncture / Unknown 03/17/2025 6:16 AM CDT 03/17/2025 6:37 AM CDT us Elsie Garza MD LAB - CHEMISTRY ORDERABLE S Final Result [facility] [address] [place] [address] * VAS Bilat Mapping for Hemodialysis (02/03/2025 2:36 PM CDT) Anatomical Region Laterality Modality Lower Extremity, Upper Extremity Ultrasound 02/03/2025 2:10 PM CDT Narrative Procedure Note Abelardo Meyers MD - 02/03/2025 [facility] [address] [facility], [address] [place] [address] Vessel Mapping for Hemodialysis Report Pat.Name: JUVENAL GARVIN Pat.ID: [id number] St.Date: 02/03/2025 Refer.MD: SOWMYA DURAN Exam Time: 2:10:00 PM Study Type:Vessel Mapping for Hemodialysis Age: 10 1970,54Y Sex: MALE Sonogrphr: Shiva May RVT Pat. Stat.:Outpatient CPT - 4: [id number] Reason for Study: End Stage Renal Disease Procedures: Vessel Mapping for Hemodialysis Race: [facility] Visit ID: [id number] ++++++++++++++++++++++++++++++++++++ SUMMARY: ++++++++++++++++++++++++++++++++++++ Patent left cephalic vein [...] 04:09 PM Abelardo Meyers MD Bambi Camara DAY CARE DIRECTOR-CRYSTAL CALIBRATOR VASCULAR LAB ORDERABLES E dited * HIV-1 HIV-2 ANTIGEN/ANTIBODY (05/14/2020 10:18 AM CDT) HIV Antigen/Antibod y 1 & 2 Non-reacti ve Non-react bianca 05/14/2020 11:49 AM CDT [facility] Comment:Neither HIV-1 p24 An tigen nor HIV-1/HIV-2 Antibodies are detected. Blood BLOOD SPECIMEN / Unknown Lab Venipuncture / Unknown 05/14/2020 10:18 AM CDT 05/14/2020 10:57 AM CDT Glenny Martin MD LAB - HEMATOLOGY ORDERA BLES Final Result Performing Organization Address [facility] Co de Phone Number [address] [address], [place] [phone] * HEPATITIS C ANTIBODY (05/14/2020 10:18 AM CDT) Hepatitis C Antibody Non-react bianca Non-reac tive 05/14/2020 11:49 AM CDT [facility] Comment:Hepatitis C Antibody screen indicates [...] ORDERAB LES Final Result Performing Organization Address [facility] Co de Phone Number [address] [address], [place] [phone] from Last 3 Months or Most Recently Relevant to Health Maintenance Insurance MEDICARE MEDICAID - [place] AETNA MEDICARE ADV [facility] MANAGED MEDICARE ADV MEDICARE MEDICAID - OUT OF STATE AETNA MEDICARE ADV [place] Advance Directives * Full Code (Latest Code Status on File) Date Activated Date Inactivated Comments 11/22/2018 9:24 AM 11/23/2018 7:55 PM Care Teams Extension Worker Relationship Specialty Start Date End Date Aditya Castro Update Information PCP - General 03/06/19
--- OUTSIDE RECORDS SUMMARY | 2025-03-20 17:47 | XMS_ITS | Encounter Summary ---
Author Organization [facility] Address [address] [address] Phone Care Team Providers Care Comic Book Artist Name Role Phone Unavailable Primary Care Provider Unavailabl e Reason for Visit * Reason Comments Med Refill Encounter Details Date Type Department Care Team (Late st Contact Info) Description 07/04/2019 Refill [facility] [address] [address] Leandro Reyes MD [address] [address] Social History Tobacco Use Types Packs/Day Years [...]
--- OUTSIDE RECORDS SUMMARY | 2025-03-20 17:48 | XMS_ITS | Encounter Summary ---
Author Organization [facility] [employer] [facility] Address [address] [place] [address] Care Team Providers Care Endoscopy Nurse Name Role Phone Aditya Castro MD Primary Care Provider [phone] Encounter Details Date Type Department Care Team (Late st Contact Info) Description 04/15/2019 Telephone [facility] Oncology and Hematology - [place] [address] [facility] [address] [place] [address] Fernando Schmid MD [address] [facility] [address] [place] [address] Social History Tobacco Use Types [...] on filedocumented in this encounter Care Teams Endoscopy Nurse Relationship Specialty Start Date End Date Aditya Castro MD PCP - General Student in an Organized Health Care Education/Training Program 09/11/18 documented as of this encounter
--- OUTSIDE RECORDS SUMMARY | 2025-03-20 17:48 | XMS_ITS | Encounter Summary ---
Author Organization [facility] Healthcare Address [address] [place] [address] Care Team Providers Care Switch House Operator Name Role Phone Jhonatan Bellamy MD Primary Care Provider [phone] Pedro Lakhani MD Primary Care Provider Eugenia Hughes MD Primary Care Provider [phone]- [phone] Aditya Castro MD Primary Care Provider [phone] Alondra Lambert RN Unavailable [phone] Shannon Brock MD, [place] P. 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 Gender Identity Not on file [...] documented as of this encounter Care Teams Switch House Operator Relationship Specialty Start Date End Date Jhonatan Bellamy MD [address] [place] [address] PCP - General 03/25/15 04/16/18 Pedro Lakhani MD [address] [facility] [place] [address] PCP - General Family Practice 04/17/18 04/18/18 Eugenia Hughes MD [address] [facility] [place] [address] PCP - General Family Practice 04/19/18 10/16/19 Aditya Castro MD [address] [facility] [place] [address] PCP - General 10/17/19 Alondra Lambert, RN [address] [facility] [address] [place] [address] Plumbing And Heating Mechanic 03/06/24 [place]let Ortega Jr., MD [address] [place] [address] Consulting Physician Cardiovascular Disease 05/10/24 Leandro Reyes MD [address] [facility] [address] [place] [address] Consulting Physician Nephrology 07/30/24 documented as of this encounter
--- OUTSIDE RECORDS SUMMARY | 2025-03-20 17:48 | XMS_ITS | Referral Summary ---
Author Organization [facility] Address [address] [place] [address] Care Team Providers Care Aerophysics Engineer Name Role Phone Aditya Castro MD Primary Care Provider [phone] Alondra Lambert RN Unavailable [phone] Shannon Brock MD, Hamlet P. Unavailable [phone] Leandro Reyes MD Unavailable [phone] Encounters Date Type Department Care Team Description 02/20/2025 Telephone [facility] Transplant Kidney [address] [facility] [address] [place] [address] [phone] [place] [address] Alondra Lambert RN 02/20/2025 Telephone [facility] Transplant Kidney [address] [facility] [address] [place], [place] [address] [phone] [place] [address] Alondra Lambert RN 02/13/2025 Telephone Cardiovascular and Thoracic Surgery [address] [facility] [address] [place] [address] Lorne Mcnulty MD Med Refill [...] PUMP: Continue Omnipod 5 insulin pump with Affinity G6 CGM at home settings: TIME BASAL [...] 1 tablet (25 mcg total) by mouth lead database administrator before breakfast 30 tablet 1 11/04/19 [...] mg SL tablet 12/28/19 18 Active peg 156-lfmbeovsezyf-qd ycerin (ARTIFICAL TEARS) 1-0.2-0.2 % ophthalmic solution 1 drop 4 (four) times a day 07/07/20 22 Active potassium chloride ER 20 mEq CR tablet Active Active Problems Problem Noted Date Diagnosed Date End stage renal disease 07/29/2024 Nonrheumatic aortic valve stenosis 11/22/2023 Status post aortic valve replacement 11/22/2023 Status post coronary artery bypass grafting 10/2023 CAD in p[place]enta artery 10/13/2023 Anemia 06/22/2022 Assessment & Plan (06/29/2022 10:12 AM SCRAP STRIPPER HAND): Stable, likely 2/2 anemia from ESRD, [...] 06/22/2022 Assessment & Plan (06/29/2022 10:12 AM SCRAP STRIPPER HAND): - Renal consulted, s/p CRRT in the ICU now back on PD. Tolerated well and nephrology following - Trialysis catheter removed - Continue vitamins for renal bone mineral disease. Assessment & Plan (06/28/2022 3:29 PM SCRAP STRIPPER HAND): - Renal consulted, s/p CRRT in [...] 06/22/2022 Assessment & Plan (06/29/2022 10:12 AM SCRAP STRIPPER HAND): C/b cardiogenic shock requiring impella in the setting of cath and AHRF 2/2 pulmonary edema, now resolved. TTE demonstrating recovered EF 65% with grade I diastolic dysfunction. - metop as above - continue low dose losartan 12.5mg daily, ok per nephro. Tolerating well - volume management per PD Assessment & Plan (06/28/2022 3:29 PM SCRAP STRIPPER HAND): C/b cardiogenic shock requiring impella in [...] 06/22/2022 Assessment & Plan (06/29/2022 10:12 AM SCRAP STRIPPER HAND): Converted to NSR overnight on 06/24. CHADsVASc of 4 not on anticoagulation prior to admission. - cardiology consulted - recommended ongoing rate control - holding off on a/c with high risk for bleeding while on DAPT - reduced metop to 25mg BID in the setting of hypotension, HR 70s NSR Assessment & Plan (06/28/2022 3:30 PM SCRAP STRIPPER HAND): Converted to NSR overnight on 06/24. [...] 08/22/2021 Assessment & Plan (06/29/2022 10:11 AM SCRAP STRIPPER HAND): With recurrent chest pain post-cath. He [...] today Assessment & Plan (06/28/2022 3:30 PM SCRAP STRIPPER HAND): With recurrent chest pain post-cath. He [...] 06/22/2022 Assessment & Plan (06/29/2022 10:11 AM SCRAP STRIPPER HAND): Secondary to NSTEMI, s/p Impella since removed on 06/10. Resolved. Assessment & Plan (06/23/2022 4:55 PM CDT): Secondary to NSTEMI, s/p Impella since removed on 06/10. Resolved. Assessment & Plan (06/22/2022 8:22 PM CDT): -Secondary to NSTEMI, s/p Impella since removed on 06/10. 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 He [...] session Assessment & Plan (06/28/2022 3:28 PM SCRAP STRIPPER HAND): A1c well controlled on admission. He [...] week 08/01/2024 How often do you attend jain or buddhism serv ices? Never 08/01/2024 Do [...] any time in the past 12 [facility], were you homeless or living [...] on file Legal Sex Male 3:42 AM SCRAP STRIPPER HAND Gender Identity Not on file Sexual Orientation Not on file Last Filed Vital Signs Vital Sign Reading Time Taken Comments Blood Pressure 122/75 07/29/2024 1:00 PM SCRAP STRIPPER HAND Pulse 116 07/29/2024 1:00 PM SCRAP STRIPPER HAND Temperature 36.8 C (98.2 F) 07/29/2024 1:00 PM SCRAP STRIPPER HAND Respiratory Rate 16 12/01/2023 11:1 3 AM CDT Oxygen Saturation 96% 12/01/2023 11: 13 AM CDT Inhaled Oxygen Concentration - - Weight 121.2 kg (267 lb 1.6 oz) 07/29/2024 1:00 PM SCRAP STRIPPER HAND Height 177.8 cm (5' 10) 07/29/2024 1:00 PM SCRAP STRIPPER HAND Body Mass Index 38.32 07/29/2024 1:00 PM SCRAP STRIPPER HAND Plan of Treatment Not on file Medical Devices Implanted Type Area Metal Reclamation Kettle Tender Device Identifier Shelf Expiration Date Model / Serial / Lot Kyle Vascular Device Clsr Perclose Prostyle Sut-Mediatd Closure-Repair Sys 59281-71 - [id number] Implanted:Qty: 1 on 06/10/2022 by Champ Osborne MD PhD at [facility] Other - see comments Right: Femoral Kyle [employer]ascular 01/19/202480720-17 [employer] Mary Synergy Xd Monorail 2.5mm 48mm 144cm Delivery System 1 Access [id number] - [id number] Implanted:Qty: 1 on 06/07/2022 by Champ Osborne MD PhD at [facility] Stent [employer] Mary 10/27/2023 [id number] / / [id number] [employer] Mary Synergy Xd Monorail 3mm 24mm 144cm Delivery System 1 Access Port [id number] - [id number] Implanted:Qty: 1 on 06/07/2022 by Champ Osborne MD PhD at [facility] Stent [employer] Mary 07/28/2023 [id number] / / [id number] [employer] Mary Synergy Xd Monorail 2.5mm 12mm 144cm Delivery System 1 Access [id number] - [id number] - [id number] Implanted:Qty: 1 on 06/07/2022 by Champ Osborne MD PhD at [facility] Stent [employer] Mary 05/03/2023 [id number] / [id number] / [id number] Daig Mary [id number] Device Closure Angio-Seal Vip Bondek-Plus Polyglyd L70 Cm Od6 Fr Odsec.035 In Vascular - [id number] Implanted:Qty: 1 on 01/21/2021 by Hamlet Ortega Jr., MD at [facility] Left: Groin [employer] Mary [id number] / / Kyle Vascular Device Clsr Perclose Prostyle Sut-Mediatd Closure-Repair Sys 94636-77 - [id number] Implanted:Qty: 1 on 06/07/2022 by Champ Osborne MD PhD at [facility] [employer] 01/19/2024 [id number] / / [id number] Kyle V[employer] Device Clsr Perclose Prostyle Sut-Mediatd Closure-Repair Sys 51567-97 - [id number] Implanted:Qty: 1 on 06/07/2022 by Champ Osborne MD PhD at [facility] Kyle Vascular 11/19/2023 [id number] / / [id number] Bard Access Systems Power-Trialysis 13fr 30cm 3 Lumen Kink Resistance Symmetric Tip [id number] - [id number] Implanted:Qty: 1 on 06/07/2022 by Champ Osborne MD PhD at [facility] Right: Jugular Ramirez Chapito 07/20/2024 [id number] / / [id number] [employer] Inc Impella Cp Percutaneous Left Ventricular Assist Device 4985-6251 - [id number] Implanted:Qty: 1 on 06/07/2022 by Champ Osborne MD PhD at [facility] Left: Ventricle [employer] Inc [id number] / / Bard Access Systems Power-Trialysis 13fr 20cm 3 Lumen Short Term Dialysis Straight [id number] - [id number] Implanted:Qty: 1 on 06/18/2022 at [facility] Ramirez Chapito 07/20/2024 [id number] / / [id number] Rl Biomet Inc Screw Bone Slf Drl Full Thread Locking 3.5x14mm Ti 100.035.14 - [id number] Implanted:Qty: 6 on 10/17/2023 by Lorne Mcnulty MD at [facility] N/A: Sternum [employer]l [employer] Inc 100.035.1 4 / / Rl Biomet Inc Plate Bone Low Profile 6 Hole H Shape Sternum Ti 115.102.06 - [id number] Implanted:Qty: 2 on 10/17/2023 by Lorne Mcnulty MD at [facility] N/A: Sternum [employer]l [employer] Inc 115.102.0 6 / / Rl [employer] Inc Plate Bone Low Profile 6 Hole O Shape Sternum Ti 115.104.06 - [id number] Implanted:Qty: 1 on 10/17/2023 by Lorne Mcnulty MD at [facility] N/A: Sternum [employer]l [employer] Inc 115.104.0 6 / / On-X Intrnl Valve Coronary Aortic Mechanical On X 25mm Onxane-25 - [id number] - [id number] Implanted:Qty: 1 on 10/17/2023 by Lorne Mcnulty MD at [facility] N/A: Heart On-X Intrnl 01/22/2028 ONXANE-25 / [id number] / Rl [employer] Inc Screw Bone Slf Drl Full Thread Locking 3.5x18mm Ti 100.035.18 - [id number] Implanted:Qty: 12 on 10/17/2023 by Lorne Mcnulty MD at [facility] N/A: Sternum Rl [employer] Inc 100.035.1 8 / / Explanted Type Area Metal Reclamation Kettle Tender Device Identifier Shelf Expiration Date Model / Serial / Lot Bard Peripheral Vascular Bard .25x.25in [place] Thk1.65mm Square Pledget Cardiovascular Ptfe [id number] - [id number] Explanted:Qty: 1 on 10/17/2023 by Lorne Mcnulty MD at [facility] N/A: Heart Bard Peripheral Vascular 05/18/2026 [id number] / / Procedures Procedure Name Priority Date/Time Associated Diagnosis Comments HEPATITIS C ANTIBODY Routine 07/29/2024 11:01 AM SCRAP STRIPPER HAND End stage renal disease (HCC) EGFR Routine 07/29/2024 11:01 AM SCRAP STRIPPER HAND End stage renal disease (HCC) HEMOGLOBIN A1C Routine 07/29/2024 11:01 AM SCRAP STRIPPER HAND End stage renal disease (HCC) LIPID PANEL Routine 07/29/2024 11:01 AM SCRAP STRIPPER HAND End stage renal disease (HCC) PSA SCREEN Routine 07/29/2024 11:01 AM SCRAP STRIPPER HAND End stage renal disease (HCC) TSH Routine 10/27/2023 2:30 AM SCRAP STRIPPER HAND from Last 3 Months or Most Recently Relevant to Health Maintenance Results * (ABNORMAL) eGFR (07/29/2024 11:01 AM SCRAP STRIPPER HAND) eGFR 7(L) >=60 mL/min/1. 73 m2 [...] reviewed 2021. Blood 07/29/2024 11:0 1 AM SCRAP STRIPPER HAND 07/29/2024 11:33 AM SCRAP STRIPPER HAND us Jossie King MD LAB BLOOD ORDERABL ES Final Result [facility] Department [place] [address] * PSA screen (07/29/2024 11:01 AM SCRAP STRIPPER HAND) PSA-Total 0.55 <=3.90 ng/mL Comment: Interpretive [...] revised 21. Blood 07/29/2024 11:0 1 AM SCRAP STRIPPER HAND 07/29/2024 11:33 AM SCRAP STRIPPER HAND Narrative [facility] - 07/29/2024 12:39 PM SCRAP STRIPPER HAND This lab is being obtained as part of a Kidney transplant evaluation, is time sensitive, and should only be drawn during the evaluation visit at [address] Lab. Jossie King MD LAB BLOOD ORDERABL ES Final Result Performing Organization Address [facility] de Phone Number [facility] Department [place] [address] * Hepatitis C antibody Blood (07/29/2024 11:01 AM SCRAP STRIPPER HAND) [facility] Hep C Ab Nonreactive Nonreactive Comment:Antibodies to HCV no t detected. Does NOT exclude the possibility of recent exposure to HCV. Current interpretive data was last revised on 22 Blood 07/29/2024 11:0 1 AM SCRAP STRIPPER HAND 07/29/2024 11:32 AM SCRAP STRIPPER HAND Narrative [facility] - 07/29/2024 12:47 PM SCRAP STRIPPER HAND This lab is being obtained as part of a Kidney transplant evaluation, is time sensitive, and should only be drawn during the evaluation visit at [address] Jossie King MD LAB MICROBIOLOGY - GENERAL ORDERABLES Final Result Performing Organization Address [facility] de Phone Number [facility] Department [place] [address] * (ABNORMAL) Hemoglobin A1c (07/29/2024 11:01 AM SCRAP STRIPPER HAND) [facility] Hgb A1C 9.0(H) 4.0 - 5.6 % Estimated Average Glucose 212 mg/dL [facility] Comment: The ADA recommends reporting an estimated Average Glucose (eAG) with all Hemoglobin A1c results using the equation derived from a study of 507 normal and diabetic adults. Minority populations were underrepresented and children were not included. (Diabetes Care 2020; 43(S1): S66-S76). The eAG is not equivalent to a fasting glucose. Blood 07/29/2024 11:0 1 AM SCRAP STRIPPER HAND 07/29/2024 11:34 AM SCRAP STRIPPER HAND Narrative [facility] - 07/29/2024 11:53 AM SCRAP STRIPPER HAND This lab is being obtained as part of a Kidney transplant evaluation, is time sensitive, and should only be drawn during the evaluation visit at [facility] Lab. Jossie King MD LAB BLOOD ORDERABL ES Final Result [facility] Department [place] [address] * (ABNORMAL) Lipid panel (07/29/2024 11:01 AM SCRAP STRIPPER HAND) Cholesterol 114 30 - 199 mg/dL Comment: [...] 2018. Triglycerides 66 <=149 mg/dL [facility] Comment: Interpretive Data Ages < or = [...] 2018. HDL 29(L) >=40 mg/dL [facility] Comment: Interpretive Data Ages < or = [...] on 2018. LDL, calculated 71 <=129 mg/dL [facility] Comment: Interpretive Data Ages < [...] revised on 2024. Non-HDL Cholesterol 85 mg/dL [facility] Comment: Interpretive Data Ages < or = [...] last revised on 2018. Chol/HDL ratio 4 [facility] Blood 07/29/2024 11:0 1 AM SCRAP STRIPPER HAND 07/29/2024 11:33 AM SCRAP STRIPPER HAND Narrative [facility] - 07/29/2024 12:10 PM SCRAP STRIPPER HAND This lab is being obtained as part of a Kidney transplant evaluation, is time sensitive, and should only be drawn during the evaluation visit at [facility]. us Jossie King MD LAB BLOOD ORDERABL ES Final Result [facility] Department [place] [address] * (ABNORMAL) TSH (10/27/2023 2:30 AM SCRAP STRIPPER HAND) [facility] Signature Thyroid Stimulating Hormone 13.20(H) 0.30 - 4.20 mcIUnit/mL Blood 10/27/2023 2:30 AM SCRAP STRIPPER HAND 10/27/2023 2:42 AM SCRAP STRIPPER HAND Lorne Mcnulty MD LAB BLOOD ORDERABLES Final Result Performing Organization Address City/[facility] [address]/ZIP Co de Phone Number [facility] [address] Department [place] [address] from Last 3 Months or Most Recently Relevant to Health Maintenance Insurance [facility] MEDICARE ADVANTAGE IDPA [facility] MEDICARE ADVANTAGE TRANSPLANT [employer] MEDICARE RISK IDPA TRANSPLANT [employer] MEDICARE RISK IDPA Advance Directives For more information, please contact: [phone] * Full Code (Latest Code Status on File) Date Activated Date Inactivated Comments 10/13/2023 11:32 PM 11/03/2023 11:42 PM * Full Code Date Activated Date Inactivated Comments 06/05/2022 6:17 AM 06/29/2022 6:20 PM * Full Code Date Activated Date Inactivated Comments 06/05/2022 4:43 AM 06/05/2022 4:43 AM * Full Code Date Activated Date Inactivated Comments 06/04/2022 9:55 PM 06/05/2022 4:43 AM Care Teams Aerophysics Engineer Relationship Specialty Start Date End Date Aditya Castro MD [address] [place] [address] PCP - General 10/17/19 Alondra Lambert, RN [address] [address] Staff Physical Therapy Assistant 03/06/24 Hamlet Ortega Jr., MD [address] [place] [address] Consulting Physician Cardiovascular Disease 05/10/24 Leandro Reyes MD [address] [facility] [address] [place] [address] Consulting Physician Nephrology 07/30/24
--- OUTSIDE RECORDS SUMMARY | 2025-03-20 17:48 | XMS_ITS | Continuity of Care Document ---
Author Organization [facility] Address [address] [place] [address] [place] [address] Phone Care Team Providers Care Phone Manager Name Role Phone Carlos Garcia Unavailable Unavailable Advance Directives Directive Yes / No Effective Date File Name No Information Encounters Encounter Description Practice Location Reason(s) For Visit Diagnoses Date Provider Providers Copied on Encounter [facility], [address], [place], [place], [id number], [place] tel:[phone] [facility] No Information Radha Gonzalez. [address] [place], [place], [facility], [place]. tel:[phone] Referring Provider: Yannick Remy, [facility] [address], [place], [place], [facility]. tel:[phone] Family History Family Member Type Diagnosis Age At Onset No Information Payers Payer name Insurance type Covered libertarian ID Authoriza tion(s) Medicaid [facility] [id number] Social History Type Description Quantity Date Captured [...]
--- OUTSIDE RECORDS SUMMARY | 2025-03-20 17:48 | XMS_ITS | Encounter Summary ---
Author Organization [facility] Address [address] [place] [address] Care Team Providers Care Healthcare Facility Administrator Name Role Phone Aditya Castro Primary Care Provider Unavailab le Reason for Visit * Reason Onset Date Comments Med Question 06/25/2019 Encounter Details Date Type Department Care Team (Late st Contact Info) Description 06/25/2019 Telephone [facility] [address] [place] [address] Finn Kramer MD [address] [place] [address] Med Question Social History Tobacco Use Types Packs/Day Years Used Date Smoking Tobacco: Never Smokeless Tobacco: Never Alcohol Use Standard Drinks/Week Comments No 0 (1 standard drink = 0.6 oz pur e alcohol) Sex and Gender Information Value Date Recorded Sex Assigned at Not on file Legal Sex Male 5:33 AM 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 I called and spoke with Kashif at [facility] and gave clarification the the mmHg I let them know that they should Be the 20-30mmHg . He understood and will get them ready for pt. Anali Connelly STRIAL SALES ENGINEER * Telephone Encounter - Theodore Huerta - 06/25/2019 10:40 AM CST Pt called saying patient pharmacy just needs clarification of a number on the prescription for compression socks. Please Advise. STRIAL SALES ENGINEER documented in this encounter Plan of Treatment Upcoming Encounters Date Type Department Care Team (Late st Contact Info) Description 03/31/2025 10:20 AM CDT Office Visit [facility] - Surgery [address] [place] [address], [address] [address] Abelardo Meyers MD [address] [place] [phone] documented as of this encounter Visit Diagnoses Not on filedocumented in this encounter Care Teams Healthcare Facility Administrator Relationship Specialty Start Date End Date Aditya Castro Update Information PCP - General 03/06/19 documented as of this encounter
[2025-03-20 19:24] VITALS: BP 137/78; PULSE 83; RESP 16; TEMP 36.8; O2SAT 93
--- NOTE | 2025-03-20 19:27 | PC.NURSE ---
Received report from LUAN Bower for cont of care. Pt lying on stretcher cont. cardiac and pulse oximeter. Pt BG 292, refer to MAR for medication administration.
[2025-03-20] MEDS: INSULIN HUMAN REGULAR (*BKC) 100 UNITS/ML IV PUSH (19:30)
--- NOTE | 2025-03-20 19:33 | PC.NURSE ---
US at bedside
[2025-03-20 20:34] LABS: Add Urine Microscopic? YES; Appearance Urine Clear (Clear); Glucose Urine UA 3+ mg/dL (Negative); Leukocyte Esterase Ur 1+ LEU/UL (Negative); Need Manual Microscopic Reviewed; Nitrate Urine Negative (Negative); Specific Grav Ur 1.038 (1.001-1.035)
[2025-03-20] MEDS: cefTRIAXone 1 GM in SODIUM CHLORIDE 0.9% IV 50 ML 100 ML IVPB (20:48)
[2025-03-20 22:42] VITALS: BP 100/59; PULSE 83; RESP 16; O2SAT 97
== END 2025-03-20 22:42 | disposition home or self-care (01) ==
PROVIDERS: Emergency Provider Physician Assistant; PCP Family Medicine
DX: E10.65 Type 1 diabetes mellitus with hyperglycemia (principal); N39.0 Urinary tract infection, site not specified; E10.22 Type 1 diabetes mellitus with diabetic chronic kidney disease; I13.2 Hypertensive heart and chronic kidney disease with heart failure and with stage 5 chronic kidney disease, or end stage renal disease; I50.9 Heart failure, unspecified; N18.6 End stage renal disease; Z99.2 Dependence on renal dialysis; I48.0 Paroxysmal atrial fibrillation; N25.81 Secondary hyperparathyroidism of renal origin; N25.0 Renal osteodystrophy; E10.319 Type 1 diabetes mellitus with unspecified diabetic retinopathy without macular edema; E10.42 Type 1 diabetes mellitus with diabetic polyneuropathy; E78.5 Hyperlipidemia, unspecified; I25.10 Atherosclerotic heart disease of native coronary artery without angina pectoris; G47.33 Obstructive sleep apnea (adult) (pediatric); M10.9 Gout, unspecified; M19.90 Unspecified osteoarthritis, unspecified site; F41.9 Anxiety disorder, unspecified; Z95.1 Presence of aortocoronary bypass graft; Z86.718 Personal history of other venous thrombosis and embolism; Z96.1 Presence of intraocular lens; Z98.49 Cataract extraction status, unspecified eye; Z79.01 Long term (current) use of anticoagulants; Z79.82 Long term (current) use of aspirin; Z79.4 Long term (current) use of insulin; Z79.899 Other long term (current) drug therapy
CPT/HCPCS: 36415; 36600; 80053; 81001; 82010; 82375; 82805; 82948; 83050; 83735; 84100; 85018; 85025; 85610; 85730; 87086; 93971; 96365; 96375; 99284; J0696; J1815